=== PATIENT | female | born 1955 | race African-American/Black ===

== ENCOUNTER 2016-04-21 10:48 | Outpatient (RCR) | payer OTHER ==
--- OUTSIDE RECORDS SUMMARY | 2016-03-07 08:37 | XMS REPORT | Continuity of Care Document ---
Author Author [facility] Organization [facility] Address Unknown Phone Unavailable Care Team Providers Care Stunner Animal Name Role Phone Elvi Ortiz PCP [phone] Source Comments Some departments are not documenting in the electronic medical record. If you do not see the information that you expected, contact Release of Information in the Health Information Management department at [phone] for further assistance in locating additional records.[facility] Active Allergies and Adverse Reactions Allergen Noted Date Severity Reactions Comments Amitriptyline 01/23/2015 Low DIZZINESS Bactrim Ds 01/23/2015 Low UNKNOWN Ciprofloxacin 01/23/2015 Medium HIVES Erythromycin 01/23/2015 Low UNKNOWN Flagyl 01/23/2015 Low UNKNOWN Macrobid 01/23/2015 Medium RASH Current Medications Prescription Sig. Disp. Refills Start End Date Status Date chlorthalidone (HYGROTON) Take 25 mg by mouth Active 25 mg tablet daily. AMLODIPINE BESYLATE Take 5 mg by mouth daily. Active (BULK) MISC cyclobenzaprine Take 10 mg by mouth three Active (FLEXERIL) 10 mg tablet times daily as needed for Muscle Cramps. hydrOXYzine (ATARAX) 10 Take 10 mg by mouth four Active mg tablet times daily as needed for Itching. meclizine (ANTIVERT) 25 Take 25 mg by mouth as Active mg tablet Needed. DOCOSAHEXANOIC ACID/EPA Take 1,000 mg by mouth Active (FISH OIL PO) daily. pravastatin (PRAVACHOL) Take 40 mg by mouth Active 40 mg tablet daily. RABEprazole DR (+) Take 20 mg by mouth Active (ACIPHEX) 20 mg tablet daily. polyethylene glycol 3350 Take 17 g by mouth daily. Active (MIRALAX) 17 gram/dose powder ibuprofen (MOTRIN) 800 mg Take 800 mg by mouth Active tablet every 6 hours as needed for Pain. traMADol (ULTRAM) 50 mg Take 50 mg by mouth every Active tablet 6 hours as needed for Pain. gabapentin (NEURONTIN) Take 100 mg by mouth Active 100 mg capsule three times daily. Active Problems No known active problems Social History Tobacco Use Types Packs/Day Years Used Date Never Assessed Last Filed Vital Signs Vital Sign Reading Time Taken Blood Pressure 126/85 01/27/2015 9:53 AM CDT Pulse 83 01/27/2015 9:53 AM CDT Temperature 36.3 C (97.4 F) 01/27/2015 9:53 AM CDT Respiratory Rate 18 01/27/2015 9:53 AM CDT Height 1.575 m (5' 2") 01/27/2015 9:53 AM CDT Weight 77.111 kg (170 lb) 01/27/2015 9:53 AM CDT Body Mass Index 31.09 01/27/2015 9:53 AM CDT Oxygen Saturation 98% 01/27/2015 9:53 AM CDT Plan of Care Health Maintenance Due Date Last Done Comments Physical (Comprehensive) 1964 Exam Pertussis Vaccine 1968 Tetanus Vaccine 1974 Cervical Cancer Screening 1978 Breast Cancer Screening 1997 Colorectal Cancer 2007 Screening Influenza Vaccine 12/10/2015 Results from Last 3 Months Not on file
[~2016-04-21 10:48] MED LIST: ACET1TAB37; AMLO5TAB2 PO; AMLO5TAB5 PO; AMOX500C2 PO; CEPH500T PO; CETI10TA20 PO; CHLO25TA2 PO; CHLO500T2 PO; CPR500T PO; CYCL10TA9 PO; DIAZ-345 PO; FLAX SEED; Fish Oil; GENT5DRO3 OD; HYDR-1231 PO; HYDR-3816 PO; IBP800T PO; KETO10TA PO; LISI1TAB10 PO; MECL-133; MECL25TA56 PO; MELO15TA14; MONT10TA21 PO; OMG1KC PO; PRAV40TA PO; PRD20T PO; PROP1TAB77; SIMV40TA4 PO; SULF1TAB38 PO; TRM50T PO; [UNRECOGNIZED DRUG - CODE]
== END 2016-05-18 14:17 | disposition home or self-care (01) ==
DX: M75.82 Other shoulder lesions, left shoulder (principal)

== ENCOUNTER 2016-05-21 07:22 | Emergency (ER) | payer OTHER ==
[~2016-05-21] VITALS: Ht 162.6 cm; Wt 81.6 kg
--- OUTSIDE RECORDS SUMMARY | 2016-05-21 07:28 | XMS REPORT | Continuity of Care Document ---
Author Author [facility] Organization [facility] Address Unknown Phone Unavailable Care Team Providers Care Commercial Loan Processor Name Role Phone Elvi Ortiz PCP [phone] Source Comments Some departments are not documenting in the electronic medical record. If you do not see the information that you expected, contact Release of Information in the Health Information Management department at [phone] for further assistance in locating additional records.[facility] Active Allergies and Adverse Reactions Allergen [...]
[2016-05-21] MEDS ORDERED: FAMOTIDINE 20 MG (PEPCID) TABLET PO STA (07:35)
[2016-05-21] MEDS ORDERED: DEXAMETHASONE PF 10 MG/ML (DECADRON) VIAL IM STA (07:35)
--- NOTE | 2016-05-21 07:37 | ED General ---
General Chief Complaint: Allergic Reaction Stated Complaint: POSS ALLERGIC REACTION/FACIAL SWELLING Nursing Triage Note: STATES LAST NIGHT AROUND 2200 SHE NOTICED HER LIPS STARTING TO SWELL. SHE TOOK X2 BENADRYL AND WENT TO BED. THIS AM SHE NOTICED HER LIPS BEING EVEN MORE SWOLLEN AND TOOK X2 MORE BENADRYL THIS AM [place] 0630. DENIES ANY OTHER COMPLAINTS. PT IS ALLERGIC TO PEANUTS Nursing Sepsis Screen: No Definite Risk Source of Information: Patient Exam Limitations: No Limitations History of Present Illness Time Seen by Provider: 07:25 Initial Comments Here with report of swelling around her face. She noted that it started last night to her upper lip. She ate at [employer] and thinks that she may have had contact with peanuts and she is allergic to that. She did take 2 Benadryl last night and was able to go to sleep. She woke this morning with increasing swelling to her upper lip and took 2 more Benadryl at about 630 a.m. Denies breathing problems, throat swelling, stomach upset or hives. Does have history of allergic reaction that can sometimes be quite severe. She does have EpiPen available. Timing/Duration: 12 Hours Severity: Moderate Associated Systoms: No Chest Pain, No Fever/Chills, No Nausea/Vomiting, No Shortness of Air Allergies and Home Medications Allergies Coded Allergies: peanut (Verified Allergy, Severe, SOA, FACIAL SWELLING, 05/21/16) sulfamethoxazole (Unverified Adverse Reaction, Mild, 05/22/14) trimethoprim (Unverified Adverse Reaction, Mild, 05/22/14) Home Medications Amlodipine Besylate 5 Mg Tablet 5 MG PO DAILY (Reported) Cephalexin 500 Mg Tablet #20 500 MG PO QID Prescribed by: WILLA WARREN on 02/04/16 1233 Chlorthalidone 25 Mg Tablet 25 MG PO DAILY (Reported) Cyclobenzaprine Hcl 10 Mg Tablet 10 MG PO TID PRN PRN MUSCLE SPASMS (Reported) Hydrocodone Bit/Acetaminophen 1 Tab Tablet #14 1 TAB PO Q4H PRN PRN PAIN Prescribed by: SIDDHARTH COTTON on 10/09/14 1656 Hydrocodone/Acetaminophen 1 Each Tablet #8 1 EACH PO Q6H Prescribed by: WILLA WARREN on 02/04/16 1233 Ketorolac Tromethamine 10 Mg Tablet #20 10 MG PO Q6H Prescribed by: BUTCH DE JESUS MD on 10/03/15 1821 Meclizine Hcl 25 Mg Tablet 25 MG PO TID PRN PRN PRN DIZZINESS (Reported) [place] 3 Polyunsat Fatty Acids 1,000 Mg Cap 1,000 MG PO DAILY (Reported) Pravastatin Sodium 40 Mg Tablet 40 MG PO HS (Reported) Prednisone 20 Mg Tab #6 40 MG PO DAILY Prescribed by: WILLA WARREN on 02/04/16 1233 Constitutional: see HPINo chills, No fever EENTM: mouth swelling see HPINo throat swelling Respiratory: No cough, No short of breath, No wheezing Cardiovascular: No chest pain, No syncope Gastrointestinal: No abdominal pain, No nausea, No vomiting Genitourinary: no symptoms reported Musculoskeletal: no symptoms reported Skin: no symptoms reportedNo lesions, No rash Psychiatric/Neurological: No Symptoms Reported All Other Systems Reviewed Negative Unless Noted: Yes Past Ihwsnxk-Elmnca-Orrioa Hx Patient Social History Alcohol Use: Denies Use Recreational Drug Use: No Smoking Status: Unknown if Ever Smoked Recent Foreign Travel: No Contact w/Someone Who Travel: No Recent Infectious Disease Expo: No Recent Hopitalizations: No Immunizations Up To Date Tetanus Booster (TDap): Less than 5yrs Seasonal Allergies Seasonal Allergies: No Surgeries HX Surgeries: Yes (CARPAL TUNNEL) Surgeries: Adenoidectomy, Tubal Ligation Respiratory Hx Respiratory Disorders: No Cardiovascular Hx Cardiac Disorders: Yes Cardiac Disorders: High Cholesterol, Hypertension Neurological Hx Neurological Disorders: No Reproductive System Hx Reproductive Disorders: No Genitourinary Hx Genitourinary Disorders: No Gastrointestinal Hx Gastrointestinal Disorders: No Musculoskeletal Hx Musculoskeletal Disorders: Yes Musculoskeletal Disorders: Chronic Back Pain Endocrine Hx Endocrine Disorders: No HEENT HX ENT Disorders: No Cancer Hx Cancer: No Psychosocial Hx Psychiatric Problems: No Integumentary HX Skin/Integumentary Disorder: No Blood Transfusions Hx Blood Disorders: No Reviewed Nursing Assessment Reviewed/Agree w Nursing PMH: Yes Family Medical History Significant Family History: No Pertinent Family Hx Physical Exam Vital Signs Vital Sign - Last 12Hours 05/21/16 07:27 Temp 96.4 Pulse 91 Resp 18 B/P 148/87 Pulse Ox 98 Capillary Refill : Less Than 3 Seconds General Appearance: No Apparent Distress WD/WN HEENT: PERRL/EOMI Pharynx Normal Other (swelling of the upper lip noted.) Neck: Non Tender Supple Respiratory: Lungs Clear Normal Breath Sounds Cardiovascular: Regular Rate, Rhythm No Murmur Gastrointestinal: Non Tender Soft Back: Normal Inspection No CVA Tenderness No Vertebral Tenderness Extremity: Non Tender No Calf Tenderness Neurologic/Psychiatric: Alert Oriented x3 Skin: Normal Color Warm/Dry Progress/Results/Core Measures Results/Orders My Orders Orders-WILLA WARREN MD Dexamethasone Pf Injection (Decadron Pf (05/21/16 07:35) Famotidine Tablet (Pepcid Tablet) (05/21/16 07:35) Vital Signs/I&O Vital Sign - Last 12Hours 05/21/16 07:27 Temp 96.4 Pulse 91 Resp 18 B/P 148/87 Pulse Ox 98 Blood Pressure Mean: 107 Progress Note : Progress Note Seen and evaluated. Decadron 10 mg IM. Pepcid 20 mg by mouth. We did discuss treatment of allergic reactions. Discharged home with return precautions. Patient verbalize understanding instructions and agreement with plan. Departure Impression Impression: Primary Impression: Allergic reaction to food Qualified Code: T78.1XXA - Other adverse food reactions, not elsewhere classified, initial encounter Disposition: 01 HOME, SELF-CARE Condition: Improved Departure-Patient Inst. Decision time for Depature: 07:51 Referrals: [facility] (PCP/Family) Primary Care Physician Patient Instructions: Food Allergy Add. Discharge Instructions: All discharge instructions reviewed with patient and/or family. Voiced understanding. You may take Benadryl 25 or 50 mg every 6 hours as needed for swelling or itching. You may take Pepcid or the generic famotidine 20 mg twice daily for the next 3-4 days and then as needed. If you have allergic reaction you may take 2 Benadryl and 1 Pepcid at onset of symptoms in the future. Take other medications as prescribed. Return for worse pain, swelling of the throat or tongue, breathing problems, stomach upset or pain, hives or rash or other concerns as needed. Follow-up with your in a few days for recheck. Work/School Note: Work Release Form Date Seen in the Emergency Department: May 21, 2016 Return to Work: May 22, 2016 Restrictions: No Restrictions WILLA WARREN MD May 21, 2016 07:37
[2016-05-21 08:13] VITALS: BP 127/89
== END 2016-05-21 08:13 | disposition home or self-care (01) ==
LOC: EDUNIT# 07:22 → ER 07:24
DX: T78.1XXA Other adverse food reactions, not elsewhere classified, initial encounter (principal); I10 Essential (primary) hypertension; Z79.899 Other long term (current) drug therapy; Z91.02 Food additives allergy status
CPT/HCPCS: 96372; 99282

== ENCOUNTER 2016-06-06 10:23 | Emergency (ER) | payer OTHER ==
[~2016-06-06] VITALS: Ht 162.6 cm; Wt 81.6 kg
--- OUTSIDE RECORDS SUMMARY | 2016-06-06 10:30 | XMS REPORT | Continuity of Care Document ---
Author Author [facility] Organization [facility] Address Unknown Phone Unavailable Care Team Providers Care Title I Coordinator Name Role Phone Elvi Ortiz PCP [phone] Source Comments Some departments are not documenting in the electronic medical record. If you do not see the information that you expected, contact Release of Information in the Health Information Management department at [phone] for further assistance in locating additional records.[facility] Active Allergies and Adverse Reactions Allergen [...]
--- NOTE | 2016-06-06 10:52 | ED General ---
General Chief Complaint: Allergic Reaction Stated Complaint: ALLERGIC REACTION/LIP SWOLLEN Source of Information: Patient Exam Limitations: No Limitations History of Present Illness Time Seen by Provider: 10:49 Initial Comments To ER with right lower lip swelling since 10 p.m. last night. She went to bed at 9 p.m. feeling fine and awakened at 10 p.m. with a swollen right lip. She denies any exposure to known allergens. She has a history of facial and lip swelling and was formerly on lisinopril but her physician stopped this years ago. Timing/Duration: 1-2 Days Severity: Moderate Allergies and Home Medications Allergies Coded Allergies: peanut (Verified Allergy, Severe, SOA, FACIAL SWELLING, 05/21/16) sulfamethoxazole (Unverified Adverse Reaction, Mild, 05/22/14) trimethoprim (Unverified Adverse Reaction, Mild, 05/22/14) Home Medications Amlodipine Besylate 5 Mg Tablet 5 MG PO DAILY (Reported) Cephalexin 500 Mg Tablet #20 500 MG PO QID Prescribed by: WILLA WARREN on 02/04/16 1233 Chlorthalidone 25 Mg Tablet 25 MG PO DAILY (Reported) Cyclobenzaprine Hcl 10 Mg Tablet 10 MG PO TID PRN PRN MUSCLE SPASMS (Reported) Hydrocodone Bit/Acetaminophen 1 Tab Tablet #14 1 TAB PO Q4H PRN PRN PAIN Prescribed by: SIDDHARTH COTTON on 10/09/14 1656 Hydrocodone/Acetaminophen 1 Each Tablet #8 1 EACH PO Q6H Prescribed by: WILLA WARREN on 02/04/16 1233 Ketorolac Tromethamine 10 Mg Tablet #20 10 MG PO Q6H Prescribed by: BUTCH DE JESUS MD on 10/03/15 1821 Meclizine Hcl 25 Mg Tablet 25 MG PO TID PRN PRN PRN DIZZINESS (Reported) [place] 3 Polyunsat Fatty Acids 1,000 Mg Cap 1,000 MG PO DAILY (Reported) Pravastatin Sodium 40 Mg Tablet 40 MG PO HS (Reported) Prednisone 20 Mg Tab #6 40 MG PO DAILY Prescribed by: WILLA WARREN on 02/04/16 1233 Constitutional: see HPI EENTM: other (lip swelling but no trouble swallowing or tongue swelling) see HPI Respiratory: no symptoms reportedNo short of breath, No stridor, No wheezing Cardiovascular: no symptoms reported Genitourinary: no symptoms reported Musculoskeletal: see HPI Skin: see HPINo pruritus, No rash Psychiatric/Neurological: No Symptoms Reported Hematologic/Lymphatic: No Symptoms Reported Past Iqbrkrq-Dxgzro-Tellme Hx Patient Social History Alcohol Use: Denies Use Recreational Drug Use: No Smoking Status: Never a Smoker Recent Foreign Travel: No Contact w/Someone Who Travel: No Recent Hopitalizations: No Immunizations Up To Date Tetanus Booster (TDap): Less than 5yrs Seasonal Allergies Seasonal Allergies: No Surgeries HX Surgeries: Yes (CARPAL TUNNEL) Surgeries: Adenoidectomy, Tubal Ligation Respiratory Hx Respiratory Disorders: No Cardiovascular Hx Cardiac Disorders: Yes Cardiac Disorders: High Cholesterol, Hypertension Neurological Hx Neurological Disorders: No Reproductive System Hx Reproductive Disorders: No Genitourinary Hx Genitourinary Disorders: No Gastrointestinal Hx Gastrointestinal Disorders: No Musculoskeletal Hx Musculoskeletal Disorders: Yes Musculoskeletal Disorders: Chronic Back Pain Endocrine Hx Endocrine Disorders: No HEENT HX ENT Disorders: No Cancer Hx Cancer: No Psychosocial Hx Psychiatric Problems: No Integumentary HX Skin/Integumentary Disorder: No Blood Transfusions Hx Blood Disorders: No Family Medical History Significant Family History: No Pertinent Family Hx Physical Exam Vital Signs Vital Sign - Last 12Hours 06/06/16 10:48 Temp 97.0 Pulse 84 Resp 18 B/P 123/84 Pulse Ox 98 Capillary Refill : General Appearance: No Apparent Distress WD/WN Eyes: Bilateral Eye EOMI, Bilateral Eye Normal Inspection, Bilateral Eye PERRL HEENT: PERRL/EOMI TMs Normal Other (there is swelling to the right side of the lower lip. There is no swelling involving the tongue, uvula or airway. There is no wheezing or stridor.) Neck: Full Range of Motion Normal Inspection Respiratory: Normal Breath Sounds No Accessory Muscle Use No Respiratory Distress Cardiovascular: Regular Rate, Rhythm Normal Peripheral Pulses Gastrointestinal: Normal Bowel Sounds Non Tender Soft Extremity: Normal Capillary Refill Normal Inspection Neurologic/Psychiatric: Alert Oriented x3 No Motor/Sensory Deficits Skin: Normal Color Warm/DryNo Rash Progress/Results/Core Measures Results/Orders My Orders Orders-BRITT ZIEGLER APRN Dexamethasone Pf Injection (Decadron Pf (06/06/16 11:00) Diphenhydramine Injection (Benadryl Inje (06/06/16 11:00) Complement C4 Serum (06/06/16 10:52) C1 Esterase Inhibitor Qnt (06/06/16 10:52) C1 Esterase Inhibitor Function (06/06/16 10:52) Vital Signs/I&O Vital Sign - Last 12Hours 06/06/16 10:48 Temp 97.0 Pulse 84 Resp 18 B/P 123/84 Pulse Ox 98 Departure Impression Impression: Primary Impression: Angioedema of lips Disposition: HOME, SELF-CARE Condition: Stable Departure-Patient Inst. Decision time for Depature: 10:51 Referrals: [facility] (PCP/Family) Primary Care Physician Patient Instructions: Angioedema Add. Discharge Instructions: 1. This angioedema may be allergic or hereditary 2. Follow-up with your doctor to help differentiate this. All discharge instructions reviewed with patient and/or family. Voiced understanding. Copy Copies To 1: ROSANNA NELSON PETER J APRN Jun 06, 2016 10:52
[2016-06-06] MEDS ORDERED: diphenhydrAMINE 50 MG/ML INJ (BENADRYL) IM ONE (11:00)
[2016-06-06] MEDS ORDERED: DEXAMETHASONE PF 10 MG/ML (DECADRON) VIAL IM ONE (11:00)
[2016-06-06 11:12] VITALS: BP 123/84
[2016-06-07 08:03] LABS: C4 COMPLEMENT SERUM 51 mg/dL (15-59)
[2016-06-09 07:33] LABS: C1 ESTERASE INHIBITOR C 111 mg/dL (31-67)
== END 2016-06-06 11:12 | disposition home or self-care (01) ==
LOC: EDUNIT# 10:23 → ER 10:25
DX: T78.3XXA Angioneurotic edema, initial encounter (principal); I10 Essential (primary) hypertension; Z79.899 Other long term (current) drug therapy
CPT/HCPCS: 36415; 86160; 86329; 88271; 96372; 99282

== ENCOUNTER 2016-06-18 11:08 | Emergency (ER) | payer OTHER ==
[~2016-06-18] VITALS: Ht 157.5 cm; Wt 79.4 kg
--- OUTSIDE RECORDS SUMMARY | 2016-06-18 11:14 | XMS REPORT | Continuity of Care Document ---
Author Author [facility] Organization [facility] Address Unknown Phone Unavailable Care Team Providers Care Fruit Loader Machine Operator Name Role Phone Elvi Ortiz PCP [phone] Source Comments Some departments are not documenting in the electronic medical record. If you do not see the information that you expected, contact Release of Information in the Health Information Management department at [phone] for further assistance in locating additional records.[facility] Active Allergies and Adverse Reactions Allergen Noted [...]
--- NOTE | 2016-06-18 11:21 | ED Abdominal Pain ---
General Stated Complaint: R SIDE BACK AND SIDE PAIN Source of Information: Patient Exam Limitations: No Limitations History of Present Illness Time Seen By Provider: 11:20 Initial Comments To ER with 3 weeks of constant right low back pain that radiates around to the right lower abdomen. She has frequent urination. No fevers chills. No nausea or vomiting. No diarrhea or constipation. Timing/Duration: 1-2 Days Severity/Quality: Moderate Location: RLQ, Flank Radiation: RLQ Activities at Onset: None Associated Symptoms: No Fever/Chills, No Nausea/Vomiting Allergies and Home Medications Allergies Coded Allergies: peanut (Verified Allergy, Severe, SOA, FACIAL SWELLING, 05/21/16) sulfamethoxazole (Unverified Adverse Reaction, Mild, 05/22/14) trimethoprim (Unverified Adverse Reaction, Mild, 05/22/14) Home Medications Amlodipine Besylate 5 Mg Tablet 5 MG PO DAILY (Reported) Cephalexin 500 Mg Tablet #20 500 MG PO QID Prescribed by: WILLA WARREN on 02/04/16 1233 Chlorthalidone 25 Mg Tablet 25 MG PO DAILY (Reported) Cyclobenzaprine Hcl 10 Mg Tablet 10 MG PO TID PRN PRN MUSCLE SPASMS (Reported) Hydrocodone Bit/Acetaminophen 1 Tab Tablet #14 1 TAB PO Q4H PRN PRN PAIN Prescribed by: SIDDHARTH COTTON on 10/09/14 1656 Hydrocodone/Acetaminophen 1 Each Tablet #8 1 EACH PO Q6H Prescribed by: WILLA WARREN on 02/04/16 1233 Hydrocodone/Acetaminophen 1 Each Tablet #10 1 EACH PO Q6H PRN PRN SEVERE PAIN Prescribed by: BRITT ZIEGLER on 06/18/16 1308 Ibuprofen 800 Mg Tablet #30 800 MG PO Q8H PRN PRN PAIN Prescribed by: BRITT ZIEGLER on 06/18/16 1308 Ketorolac Tromethamine 10 Mg Tablet #20 10 MG PO Q6H Prescribed by: BUTCH DE JESUS MD on 10/03/15 1821 Meclizine Hcl 25 Mg Tablet 25 MG PO TID PRN PRN PRN DIZZINESS (Reported) [place] 3 Polyunsat Fatty Acids 1,000 Mg Cap 1,000 MG PO DAILY (Reported) Pravastatin Sodium 40 Mg Tablet 40 MG PO HS (Reported) Prednisone 20 Mg Tab #6 40 MG PO DAILY Prescribed by: WILLA WARREN on 02/04/16 1233 Review of Systems Constitutional: see HPI EENTM: No Symptoms Reported Respiratory: No Symptoms Reported Cardiovascular: No Symptoms Reported Gastrointestinal: See HPI Abdominal PainDenies Constipated, Denies Diarrhea, Denies Nausea Genitourinary: See HPI Frequency Flank Pain Musculoskeletal: no symptoms reported Skin: no symptoms reported Psychiatric/Neurological: No Symptoms Reported Endocrine: No Symptoms Reported Hematologic/Lymphatic: No Symptoms Reported Past Lydhfrb-Vrtssf-Gtmjio Hx Patient Social History Recent Foreign Travel: No Contact w/Someone Who Travel: No Recent Hopitalizations: No Immunizations Up To Date Tetanus Booster (TDap): Less than 5yrs Seasonal Allergies Seasonal Allergies: No Surgeries HX Surgeries: Yes (CARPAL TUNNEL) Surgeries: Adenoidectomy, Tubal Ligation Respiratory Hx Respiratory Disorders: No Cardiovascular Hx Cardiac Disorders: Yes Cardiac Disorders: High Cholesterol, Hypertension Neurological Hx Neurological Disorders: No Reproductive System Hx Reproductive Disorders: No Genitourinary Hx Genitourinary Disorders: No Gastrointestinal Hx Gastrointestinal Disorders: No Musculoskeletal Hx Musculoskeletal Disorders: Yes Musculoskeletal Disorders: Chronic Back Pain Endocrine Hx Endocrine Disorders: No HEENT HX ENT Disorders: No Cancer Hx Cancer: No Psychosocial Hx Psychiatric Problems: No Integumentary HX Skin/Integumentary Disorder: No Blood Transfusions Hx Blood Disorders: No Family Medical History Significant Family History: No Pertinent Family Hx Physical Exam Vital Signs VS - Last 72 Hours, by Label 06/18/16 11:20 Temp 97.5 Pulse 80 Resp 16 B/P 130/90 Pulse Ox 98 Capillary Refill : General Appearance: WD/WN no apparent distress HEENT: PERRL/EOMI normal ENT inspection Neck: non-tender full range of motion Respiratory: no respiratory distress no accessory muscle use Cardiovascular: regular rate, rhythm no murmur Gastrointestinal: normal bowel sounds soft tenderness Neurologic/Psychiatric: alert normal mood/affect oriented x 3 Skin: normal color warm/dry Progress/Results/Core Measures Results/Orders Lab Results Laboratory Tests Test 06/18/16 11:21 06/18/16 11:28 Range/Units Alanine Aminotransferase (ALT/SGPT) 17 0-55 U/L Albumin 4.7 H 3.2-4.5 G/DL Alkaline Phosphatase 110 40-136 U/L Anion Gap 12 5-14 MMOL/L Aspartate Amino Transf (AST/SGOT) 18 5-34 U/L BUN/Creatinine Ratio 12 Basophils # (Auto) 0.0 0.0-0.1 10^3/uL Basophils (%) (Auto) 0 0-10 % Blood Urea Nitrogen 9 7-18 MG/DL Calcium Level 10.3 H 8.5-10.1 MG/DL Carbon Dioxide Level 25 21-32 MMOL/L Chloride Level 103 98-107 MMOL/L Creatinine 0.77 0.60-1.30 MG/DL Eosinophils # (Auto) 0.1 0.0-0.3 10^3/uL Eosinophils (%) (Auto) 2 0-10 % Estimat Glomerular Filtration Rate > 60 Glucose Level 113 H 70-105 MG/DL Hematocrit 43 35-52 % Hemoglobin 14.3 11.5-16.0 G/DL Lymphocytes # (Auto) 1.3 1.0-4.0 X 10^3 Lymphocytes (%) (Auto) 27 12-44 % Mean Corpuscular Hemoglobin 28 25-34 PG Mean Corpuscular Hemoglobin Concent 33 32-36 G/DL Mean Corpuscular Volume 84 80-99 FL Mean Platelet Volume 10.6 H 7.4-10.4 FL Monocytes # (Auto) 0.4 0.0-1.0 X 10^3 Monocytes (%) (Auto) 8 0-12 % Neutrophils # (Auto) 3.0 1.8-7.8 X 10^3 Neutrophils (%) (Auto) 63 42-75 % Platelet Count 300 130-400 10^3/uL Potassium Level 3.8 3.6-5.0 MMOL/L Red Blood Count 5.13 4.35-5.85 10^6/uL Red Cell Distribution Width 14.0 10.0-14.5 % Sodium Level 140 135-145 MMOL/L Total Bilirubin 0.4 0.1-1.0 MG/DL Total Protein 7.9 6.4-8.2 G/DL White Blood Count 4.7 4.3-11.0 10^3/uL Urine Bacteria NEGATIVE /HPF Urine Bilirubin NEGATIVE NEGATIVE Urine Casts NONE /LPF Urine Clarity CLEAR Urine Color YELLOW Urine Crystals NONE /LPF Urine Culture Indicated NO Urine Glucose (UA) NEGATIVE NEGATIVE Urine Ketones NEGATIVE NEGATIVE Urine Leukocyte Esterase 1+ H NEGATIVE Urine Mucus NEGATIVE /LPF Urine Nitrite NEGATIVE NEGATIVE Urine Protein NEGATIVE NEGATIVE Urine RBC NONE /HPF Urine RBC (Auto) NEGATIVE NEGATIVE Urine Specific [place] 1.010 L 1.016-1.022 Urine Squamous Epithelial Cells RARE /HPF Urine Urobilinogen NORMAL NORMAL MG/DL Urine WBC RARE /HPF Urine pH 7 5-9 My Orders Orders-BRITT ZIEGLER APRN Cbc With Automated Diff (06/18/16 11:17) Comprehensive Metabolic Panel (06/18/16 11:17) Ua Culture If Indicated (06/18/16 11:17) Saline Lock/Iv-Start (06/18/16 11:17) Ct Abd/Pelvis Wo(Kidney Stone) (06/18/16 11:17) Ketorolac Injection (Toradol Injection) (06/18/16 11:30) Fentanyl Injection (Sublimaze Injection (06/18/16 12:00) Us Non Ob Pelvis Comp/Transvag (06/18/16 12:16) Medications Given in ED Current Medications Medications Dose Ordered Sig/Deangelo Route Start Time Stop Time Status Last Admin Dose Admin Fentanyl Citrate 50 mcg ONCE ONCE IVP 06/18/16 12:00 06/18/16 12:01 DC 06/18/16 11:56 50 MCG Ketorolac Tromethamine 30 mg ONCE ONCE IVP 06/18/16 11:30 06/18/16 11:31 DC 06/18/16 11:34 30 MG Vital Signs/I&O Vital Sign - Last 12Hours 06/18/16 11:20 Temp 97.5 Pulse 80 Resp 16 B/P 130/90 Pulse Ox 98 Diagnostic Imaging Diagonstic Imaging: Ultrasound Comments NAME: [facility]EM [facility]UART [facility] REC#: [id number] PT STATUS: REG ER : 1955 PHYSICIAN: BRITT ZIEGLER APRN ADMIT DATE: 06/18/16/ER Draft Date of Exam:06/18/16 US NON OB PELVIS COMP/TRANSVAG INDICATION: Pelvic fullness with calcification on CT imaging obtained for urinary tract infection. TECHNIQUE: Multiple real time bernstein scale sonographic images were obtained of the pelvis transabdominally and endovaginally. CORRELATION STUDY: None FINDINGS: UTERUS/ENDOMETRIUM: Uterus measures uterus is slightly deviated towards the right. Along the posterior lower aspect of the uterus is what appears to be an approximately 2.2 x 2.2 cm mass with central calcification most compatible with posterior lower uterine fibroid. cm. The uterus has an unremarkable appearance. The endometrium is thickened in a postmenopausal patient measuring 8mm. RIGHT OVARY: Not visualized. LEFT OVARY: Not visualized. Ovaries unable to be visualized may be owing to position, overlying bowel gas or atrophic. No significant free pelvic fluid. IMPRESSION: 1. Probable fibroid uterus with a dense central calcification. 2. Endometrium is abnormally thickened in a postmenopausal patient raising concern for endometrial hyperplasia versus carcinoma. Followup evaluation is recommended. Dictated on workstation # [id number] Dict: 06/18/16 1314 Trans: 06/18/16 1318 MURTAZA [id number] Interpreted by: RAJENDRA PATTERSON DO Electronically signed by: Departure Communication Progress Notes 1323-I discussed the case with Dr. Garcia. She would be happy to see the patient in follow-up Impression Impression: Primary Impression: Uterine fibroid Qualified Code: D25.9 - Leiomyoma of uterus, unspecified Disposition: HOME, SELF-CARE Condition: Stable Departure-Patient Inst. Decision time for Depature: 13:06 Referrals: [facility] (PCP/Family) Primary Care Physician CATRINA POWERS DENNIS G MD MCNULTY,USHA QUESADA MD DO Patient Instructions: UTERINE FIBROIDS Add. Discharge Instructions: 1. Call one of the bench repair technician on Monday to schedule an appointment for follow-up and further evaluation of uterine fibroid. I did discuss your case with Dr. Garcia and she would be happy to see you in follow-up if you call her office on Monday morning to schedule an appointment 2. Return to ER for any worsening pain or other concerns such as fevers Scripts Hydrocodone/Acetaminophen ([place] 5-325 Tablet)1 Each Tablet1 Each PO Q6H PRN SEVERE PAIN #10 TAB Prov:BRITT ZIEGLER CLOTH WASHER OPERATOR 06/18/16 Ibuprofen 800 Mg [id number] Mg PO Q8H PRN PAIN #30 TAB Prov:BRITT ZIEGLER CLOTH WASHER OPERATOR 06/18/16 BRITT ZIEGLER CLOTH WASHER OPERATOR Jun 18, 2016 11:21
[2016-06-18] MEDS ORDERED: KETOROLAC 30 MG/ML VIAL IVP ONE (11:30)
[2016-06-18 11:35] LABS: BILIRUBIN,URINE NEGATIVE (NEGATIVE); KETONES,URINE NEGATIVE (NEGATIVE); LEUKOCYTE ESTERASE ,URINE 1+ (NEGATIVE); NITRITE,URINE NEGATIVE (NEGATIVE); PH,URINE 7 (5-9); PROTEIN,URINE NEGATIVE (NEGATIVE); UROBILINOGEN,URINE NORMAL (NORMAL)
[2016-06-18 11:37] LABS: BASOPHILS % (AUTO) 0 % (0-10); EOSINOPHILS # (AUTO) 0.1 10^3/uL (0.0-0.3); EOSINOPHILS % (AUTO) 2 % (0-10); LYMPHOCYTES # (AUTO) 1.3 X 10^3 (1.0-4.0); LYMPHOCYTES % (AUTO) 27 % (12-44); MEAN CORPUSCULAR HEMOGLOBIN 28 PG (25-34); MEAN CORPUSCULAR HGB CONC 33 G/DL (32-36); MEAN CORPUSCULAR VOLUME 84 FL (80-99); MEAN PLATELET VOLUME 10.6 FL (7.4-10.4); MONOCYTES # (AUTO) 0.4 X 10^3 (0.0-1.0); MONOCYTES % (AUTO) 8 % (0-12); NEUTROPHILS % (AUTO) 63 % (42-75); PLATELET COUNT 300 10^3/uL (130-400); RED BLOOD COUNT 5.13 10^6/uL (4.35-5.85); WHITE BLOOD COUNT 4.7 10^3/uL (4.3-11.0)
[2016-06-18 11:52] LABS: SQUAMOUS EPITHELIAL CELL,UR RARE /HPF; WBC,URINE RARE /HPF
[2016-06-18] MEDS ORDERED: fentaNYL INJECTION 100 MCG/2 ML AMP IVP ONE (12:00)
--- NOTE | 2016-06-18 12:06 | Diagnostic Imaging Report ---
PROCEDURE: CT urinary tract, rule out kidney stone. TECHNIQUE: Multiple contiguous axial images were obtained through the abdomen and pelvis without the use of intravenous contrast. INDICATION: Right back pain. COMPARISON: None FINDINGS: The lung bases are clear. The liver, gallbladder, pancreas, spleen and adrenal glands appear unremarkable. The kidneys, ureters and bladder appear unremarkable. No urinary tract calcifications or obstructive uropathy is seen. The appendix appears normal. There is no evidence of significant inflammatory process or bowel obstruction. There is some prominence of the right adnexa and there is an 11 mm coarse calcification in the region of right adnexa which may represent an ovarian lesion or possibly dermoid and is nonspecific. An exophytic degenerated uterine fibroid is considered less likely but certainly possible. Pelvic ultrasound may be of additional benefit. No significant free fluid or adenopathy is seen. Abdominal aorta appears normal in caliber. No acute osseous abnormality is seen. IMPRESSION: 1. No evidence of urinary tract calcification, obstructive uropathy or other acute abnormality. 2. The appendix appears normal. 3. There is prominence of the right adnexa with a central coarse calcification. This is nonspecific and could be a degenerating uterine fibroid which is exophytic or possibly a right ovarian lesion such as dermoid. Pelvic ultrasound may be of additional benefit for further evaluation. 4. No additional abnormality is demonstrated. Dictated by: Dictated on workstation # [id number]
[2016-06-18 12:21] LABS: ALANINE AMINOTRANSFERASE 17 U/L (0-55); ALBUMIN 4.7 G/DL (3.2-4.5); ANION GAP 12 MMOL/L (5-14); ASPARTATE AMINO TRANSFERASE 18 U/L (5-34); BILIRUBIN,TOTAL 0.4 MG/DL (0.1-1.0); BLOOD UREA NITROGEN 9 MG/DL (7-18); BUN/CREATININE RATIO 12; CALCIUM 10.3 MG/DL (8.5-10.1); CARBON DIOXIDE 25 MMOL/L (21-32); CHLORIDE 103 MMOL/L (98-107); CREATININE SERUM 0.77 MG/DL (0.60-1.30); GFR ESTIMATED > 60; GLUCOSE 113 MG/DL (70-105); POTASSIUM 3.8 MMOL/L (3.6-5.0); SODIUM 140 MMOL/L (135-145); TOTAL PROTEIN 7.9 G/DL (6.4-8.2)
[2016-06-18] MEDS ORDERED: IBUP-1780 PO (13:08)
[2016-06-18] MEDS ORDERED: HYDR-757 PO (13:08)
--- NOTE | 2016-06-18 13:19 | Diagnostic Imaging Report ---
INDICATION: Pelvic fullness with calcification on CT imaging obtained for urinary tract infection. TECHNIQUE: Multiple real time bernstein scale sonographic images were obtained of the pelvis transabdominally and endovaginally. CORRELATION STUDY: None FINDINGS: UTERUS/ENDOMETRIUM: Uterus measures uterus is slightly deviated towards the right. Along the posterior lower aspect of the uterus is what appears to be an approximately 2.2 x 2.2 cm mass with central calcification most compatible with posterior lower uterine fibroid. cm. The uterus has an unremarkable appearance. The endometrium is thickened in a postmenopausal patient measuring 8mm. RIGHT OVARY: Not visualized. LEFT OVARY: Not visualized. Ovaries unable to be visualized may be owing to position, overlying bowel gas or atrophic. No significant free pelvic fluid. IMPRESSION: 1. Probable fibroid uterus with a dense central calcification. 2. Endometrium is abnormally thickened in a postmenopausal patient raising concern for endometrial hyperplasia versus carcinoma. Followup evaluation is recommended. Dictated by: Dictated on workstation # [id number]
[2016-06-18 13:32] VITALS: BP 130/90
== END 2016-06-18 13:33 | disposition home or self-care (01) ==
LOC: EDUNIT# 11:08 → ER 11:09
DX: D25.9 Leiomyoma of uterus, unspecified (principal); R93.8 Abnormal findings on diagnostic imaging of other specified body structures; R35.0 Frequency of micturition; I10 Essential (primary) hypertension; Z79.899 Other long term (current) drug therapy
CPT/HCPCS: 36415; 74176; 76830; 76856; 80053; 81000; 85025; 96374; 96375

== ENCOUNTER 2016-06-24 22:33 | Emergency (ER) | payer OTHER ==
[~2016-06-24] VITALS: Ht 157.5 cm; Wt 80.7 kg
[~2016-06-24 22:33] MED LIST changes: +HYDR-757 PO; +IBUP-1780 PO
--- OUTSIDE RECORDS SUMMARY | 2016-06-24 22:39 | XMS REPORT | Continuity of Care Document ---
Author Author [facility] Organization [facility] Address Unknown Phone Unavailable Care Team Providers Care Costumed Character Entertainer Name Role Phone Elvi Ortiz PCP [phone] Source Comments Some departments are not documenting in the electronic medical record. If you do not see the information that you expected, contact Release of Information in the Health Information Management department at [phone] for further assistance in locating additional records.[facility] Active Allergies and Adverse Reactions [...]
[2016-06-24] MEDS ORDERED: FAMOTIDINE 20 MG (PEPCID) TABLET PO ONE (23:15)
[2016-06-24] MEDS ORDERED: methylPREDNISolone 125 MG (Solu-MEDROL) VIAL IM ONE (23:15)
[2016-06-24] MEDS ORDERED: diphenhydrAMINE 50 MG/ML INJ (BENADRYL) IM ONE (23:15)
--- NOTE | 2016-06-24 23:52 | ED Integumentary General ---
General Chief Complaint: Allergic Reaction Stated Complaint: HIVES Nursing Triage Note: PT TO ED 6 W/ C/O SMALL AREA OF ITCHING TO CHAD ONSET TONIGHT AFTER TAKING BACLOFEN. PT REPORTS BEGAN TAKING MED MONDAY OF THIS WEEK FOR UTERINE FIBROID PAIN. DENIES C/O SOA OR TONGUE SWELLING AT THIS TIME. Source: patient History of Present Illness Time seen by provider: 22:56 Initial Comments PT STATES SHE BEGAN TO DEVELOP ITCHING AND HIVES TO LEFT UPPER ABDOMEN TONIGHT AROUND 2230 STATES NOW SHE IS STARTING TO HAVE ITCHING TO LEFT POSTERIOR ILIAC AREA AND BILATERAL LOWER BUTTOCKS AREA STATES SHE HAS PELVIC PAIN FROM UTERINE FIBROID AND HAS BEEN TAKING HYDROCODONE AND IBUPROFEN WITHOUT RELIEF--SEEN IN ER 06/18/16 FOR THIS AND WAS PRESCRIBED THESE MEDICATIONS--, SO RX FOR BACLOFEN WAS CALLED IN ON Monday TONIGHT WAS 3RD TIME SHE HAS TAKEN IT, AND TOOK IT AT 2130 TONIGHT--HIVES BEGAN AN HOUR LATER NO SWELLING ANYWHERE NO DIFFICULTY BREATHING OR WHEEZING STATES SHE DOES HAVE SENSATION OF SOMETHING IN HER THROAT PT HAS HISTORY OF MULTIPLE EPISODES OF ANGIOEDEMA--UNDETERMINED CAUSE, PT IS NOT ON JUDY INHIBITORS. PT DOES HAVE SOME FOOD ALLERGIES. PT DENIES ANY NEW FOODS TONIGHT PCP:[facility] Allergies and Home Medications Allergies Coded Allergies: peanut (Verified Allergy, Severe, SOA, FACIAL SWELLING, 05/21/16) sulfamethoxazole (Unverified Adverse Reaction, Mild, 05/22/14) trimethoprim (Unverified Adverse Reaction, Mild, 05/22/14) Home Medications Amlodipine Besylate 5 Mg Tablet 5 MG PO DAILY (Reported) Cephalexin 500 Mg Tablet #20 500 MG PO QID Prescribed by: WILLA WARREN on 02/04/16 1233 Chlorthalidone 25 Mg Tablet 25 MG PO DAILY (Reported) Cyclobenzaprine Hcl 10 Mg Tablet 10 MG PO TID PRN PRN MUSCLE SPASMS (Reported) Hydrocodone Bit/Acetaminophen 1 Tab Tablet #14 1 TAB PO Q4H PRN PRN PAIN Prescribed by: SIDDHARTH COTTON on 10/09/14 1656 Hydrocodone/Acetaminophen 1 Each Tablet #8 1 EACH PO Q6H Prescribed by: WILLA WARREN on 02/04/16 1233 Hydrocodone/Acetaminophen 1 Each Tablet #10 1 EACH PO Q6H PRN PRN SEVERE PAIN Prescribed by: BRITT ZIEGLER on 06/18/16 1308 Ibuprofen 800 Mg Tablet #30 800 MG PO Q8H PRN PRN PAIN Prescribed by: BRITT ZIEGLER on 06/18/16 1308 Ketorolac Tromethamine 10 Mg Tablet #20 10 MG PO Q6H Prescribed by: BUTCH DE JESUS MD on 10/03/15 1821 Meclizine Hcl 25 Mg Tablet 25 MG PO TID PRN PRN PRN DIZZINESS (Reported) [place] 3 Polyunsat Fatty Acids 1,000 Mg Cap 1,000 MG PO DAILY (Reported) Pravastatin Sodium 40 Mg Tablet 40 MG PO HS (Reported) Prednisone 20 Mg Tab #6 40 MG PO DAILY Prescribed by: WILLA WARREN on 02/04/16 1233 Constitutional: no symptoms reported EENTM: see HPINo hoarseness, No mouth swelling Respiratory: no symptoms reportedNo cough, No short of breath, No wheezing Cardiovascular: no symptoms reported Gastrointestinal: no symptoms reported Genitourinary: no symptoms reported Musculoskeletal: no symptoms reported Skin: see HPI Psychiatric/Neurological: No Symptoms Reported Endocrine: No Symptoms Reported Hematologic/Lymphatic: No Symptoms Reported Past Mkbwvsf-Spapex-Focddn Hx Patient Social History Alcohol Use: Denies Use Recreational Drug Use: No Smoking Status: Never a Smoker 2nd Hand Smoke Exposure: No Recent Foreign Travel: No Contact w/Someone Who Travel: No Recent Infectious Disease Expo: No Recent Hopitalizations: No Immunizations Up To Date Tetanus Booster (TDap): Less than 5yrs Seasonal Allergies Seasonal Allergies: No Surgeries HX Surgeries: Yes (CARPAL TUNNEL) Surgeries: Adenoidectomy, Orthopedic, Tubal Ligation Respiratory Hx Respiratory Disorders: No Cardiovascular Hx Cardiac Disorders: Yes Cardiac Disorders: High Cholesterol, Hypertension Neurological Hx Neurological Disorders: No Reproductive System Hx Reproductive Disorders: Yes (FIBROIDS) Genitourinary Hx Genitourinary Disorders: No Gastrointestinal Hx Gastrointestinal Disorders: No Musculoskeletal Hx Musculoskeletal Disorders: Yes Musculoskeletal Disorders: Chronic Back Pain Endocrine Hx Endocrine Disorders: No HEENT HX ENT Disorders: No Cancer Hx Cancer: No Psychosocial Hx Psychiatric Problems: No Integumentary HX Skin/Integumentary Disorder: Yes (HIVES, ANGIOEDEMA) Blood Transfusions Hx Blood Disorders: No Family Medical History Significant Family History: No Pertinent Family Hx Physical Exam Vital Signs Vital Sign - Last 12Hours 06/24/16 22:48 Temp 96.8 Pulse 93 Resp 20 B/P 158/93 Pulse Ox 97 O2 Delivery Room Air Capillary Refill : Less Than 3 Seconds General Appearance: WD/WN no apparent distress HEENT: PERRL/EOMI normal ENT inspection TMs normal pharynx normal Neck: non-tender full range of motion supple normal inspection Cardiovascular: regular rate, rhythm no murmur Respiratory: normal breath sounds no respiratory distress no accessory muscle use Gastrointestinal: non tender soft Extremities: normal inspection no pedal edema normal capillary refill Neurologic/Psychiatric: national sales manager II-XII nml as tested no motor/sensory deficits alert normal mood/affect oriented x 3 Skin: normal color warm/dry rash (PATCH OF URTICARIA TO LEFT UPPER ABDOMEN. EARLY REDNESS TO LEFT POSTERIOR ILIAC CREST AREA AND BILATERAL LOWER BUTTOCKS AREAS . ) Progress/Results/Core Measures Results/Orders My Orders Orders-RICARDO MEZA DO Methylprednisolone Sod Succ (Solu-Medrol (06/24/16 23:15) Diphenhydramine Injection (Benadryl Inje (06/24/16 23:15) Famotidine Tablet (Pepcid Tablet) (06/24/16 23:15) Medications Given in ED Current Medications Medications Dose Ordered Sig/Deangelo Route Start Time Stop Time Status Last Admin Dose Admin Diphenhydramine HCl 50 mg ONCE ONCE IM 06/24/16 23:15 06/24/16 23:16 DC 06/24/16 23:16 50 MG Famotidine 40 mg ONCE ONCE PO 06/24/16 23:15 06/24/16 23:16 DC 06/24/16 23:17 40 MG Methylprednisolone Sodium Succinate 125 mg ONCE ONCE IM 06/24/16 23:15 06/24/16 23:16 DC 06/24/16 23:16 125 MG Vital Signs/I&O Vital Sign - Last 12Hours 06/24/16 06/24/16 22:48 23:57 Temp 96.8 Pulse 93 82 Resp 20 16 B/P 158/93 Pulse Ox 97 98 O2 Delivery Room Air Blood Pressure Mean: 114 Progress Note : Progress Note ITCHING GONE, THROAT SENSATION HAS RESOLVED, REDNESS IS GONE, AND URTICARIAL PATCH TO LUQ IS SMALLER AND NO ERYTHEMA TO IT--STILL SLIGHTLY RAISED PT COMFORTABLE GOING HOME Departure Impression Impression: Primary Impression: Hives Additional Impression: Medication reaction Disposition: 01 HOME, SELF-CARE Condition: Improved Departure-Patient Inst. Referrals: [facility] ([facility]Family) Primary Care Physician Patient Instructions: Drug Allergy, Hives (DC) Add. Discharge Instructions: LOTS OF WATER BENADRYL 50 MG EVERY 4 HOURS FOR RASH AND ITCHING STOP BACLOFEN [facility] NO BETTER RETURN TO ER IF WORSE All discharge instructions reviewed with patient and/or family. Voiced understanding. RICARDO MEZA DO Jun 24, 2016 23:52
[2016-06-24 23:57] VITALS: BP 130/78
== END 2016-06-24 23:57 | disposition home or self-care (01) ==
LOC: EDUNIT# 22:33 → ER 22:34
DX: L50.9 Urticaria, unspecified (principal); T42.8X5A Adverse effect of antiparkinsonism drugs and other central muscle-tone depressants, initial encounter; I10 Essential (primary) hypertension; Z79.899 Other long term (current) drug therapy
CPT/HCPCS: 96372; 99282

== ENCOUNTER 2016-07-10 22:04 | Emergency (ER) | payer OTHER ==
[~2016-07-10] VITALS: Ht 157.5 cm; Wt 79.8 kg
[2016-07-10] MEDS ORDERED: DEXAMETHASONE PF 10 MG/ML (DECADRON) VIAL IM STA (22:52)
[2016-07-10] MEDS ORDERED: FAMOTIDINE 20 MG (PEPCID) TABLET PO STA (22:52)
[2016-07-10] MEDS ORDERED: diphenhydrAMINE 25 MG TAB (BENADRYL) PO ONE (23:00)
[2016-07-10] MEDS ORDERED: FAMOTIDINE 20MG/2ML IV (PEPCID) IVP ONE (23:15)
[2016-07-10] MEDS ORDERED: methylPREDNISolone 125 MG (Solu-MEDROL) VIAL IVP ONE (23:15)
[2016-07-10] MEDS ORDERED: diphenhydrAMINE 50 MG/ML INJ (BENADRYL) IVP ONE (23:15)
[2016-07-11] MEDS ORDERED: PRD20T PO (00:46)
--- NOTE | 2016-07-11 00:46 | ED General ---
General Chief Complaint: Allergic Reaction Stated Complaint: UNKNOWN ALLERGIC REACTION Nursing Triage Note: PT TO ED 1 W/ C/O HIVES TO ABD ET SWELLING TO THE LOWER LIP, RT SIDE ONSET 1899. NO KNOWN IRRITANT Nursing Sepsis Screen: No Definite Risk Source of Information: Patient, Old Records Exam Limitations: No Limitations History of Present Illness Time Seen by Provider: 22:59 Initial Comments This 61-year-old woman presents to the emergency room with several hours of right lower lip swelling and a few scattered hives. 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 She took a Benadryl 50 mg at 19:00 followed by Pepcid 20 mg orally. She has an EpiPen but did not feel the need to take it today. Symptoms were not improving after oral medications and she therefore presented to the emergency room. Patient notes she had protein C labs performed in May. Those labs were reviewed. Patient denies any difficulty breathing or swelling of the tongue or throat. Allergies and Home Medications Allergies Coded Allergies: peanut (Verified Allergy, Severe, SOA, FACIAL SWELLING, 05/21/16) sulfamethoxazole (Unverified Adverse Reaction, Mild, 05/22/14) trimethoprim (Unverified Adverse Reaction, Mild, 05/22/14) Home Medications Amlodipine Besylate 5 Mg Tablet, 5 MG PO DAILY, (Reported) Cephalexin 500 Mg Tablet, 500 MG PO QID, #20 Prescribed by: WILLA WARREN on 02/04/16 1233 Chlorthalidone 25 Mg Tablet, 25 MG PO DAILY, (Reported) Cyclobenzaprine Hcl 10 Mg Tablet, 10 MG PO TID PRN for MUSCLE SPASMS, (Reported) Hydrocodone Bit/Acetaminophen 1 Tab Tablet, 1 TAB PO Q4H PRN for PAIN, #14 Ref 0 Prescribed by: SIDDHARTH COTTON on 10/09/14 1656 Hydrocodone/Acetaminophen 1 Each Tablet, 1 EACH PO Q6H, #8 Ref 0 Prescribed by: WILLA WARREN on 02/04/16 1233 Hydrocodone/Acetaminophen 1 Each Tablet, 1 EACH PO Q6H PRN for SEVERE PAIN, #10 Prescribed by: BRITT ZIEGLER on 06/18/16 1308 Ibuprofen 800 Mg Tablet, 800 MG PO Q8H PRN for PAIN, #30 Prescribed by: BRITT ZIEGLER on 06/18/16 1308 Ketorolac Tromethamine 10 Mg Tablet, 10 MG PO Q6H, #20 Prescribed by: BUTCH DE JESUS MD on 10/03/15 1821 Meclizine Hcl 25 Mg Tablet, 25 MG PO TID PRN PRN for DIZZINESS, (Reported) [place] 3 Polyunsat Fatty Acids 1,000 Mg Cap, 1,000 MG PO DAILY, (Reported) Pravastatin Sodium 40 Mg Tablet, 40 MG PO HS, (Reported) Prednisone 20 Mg Tab, 40 MG PO DAILY, #6 Prescribed by: WILLA WARREN on 02/04/16 1233 Prednisone 20 Mg Tab, 20 MG PO BID, #6 Prescribed by: OBDULIA BELLA on 07/11/16 0046 Constitutional: no symptoms reported EENTM: see HPI Respiratory: no symptoms reported Cardiovascular: no symptoms reported Gastrointestinal: no symptoms reported Genitourinary: no symptoms reported Musculoskeletal: no symptoms reported Skin: see HPI Psychiatric/Neurological: No Symptoms Reported Hematologic/Lymphatic: No Symptoms Reported Immunological/Allergic: see HPI Past Ypkjrwk-Mpqaia-Oipgko Hx Patient Social History Alcohol Use: Denies Use Recreational Drug Use: No Smoking Status: Never a Smoker 2nd Hand Smoke Exposure: No Recent Foreign Travel: No Contact w/Someone Who Travel: No Recent Infectious Disease Expo: No Recent Hopitalizations: No Immunizations Up To Date Tetanus Booster (TDap): Less than 5yrs Seasonal Allergies Seasonal Allergies: No Surgeries HX Surgeries: Yes (CARPAL TUNNEL) Surgeries: Adenoidectomy, Orthopedic, Tubal Ligation Respiratory Hx Respiratory Disorders: No Cardiovascular Hx Cardiac Disorders: Yes (Angioedema) Cardiac Disorders: High Cholesterol, Hypertension Neurological Hx Neurological Disorders: No Reproductive System Hx Reproductive Disorders: Yes (FIBROIDS) Genitourinary Hx Genitourinary Disorders: No Gastrointestinal Hx Gastrointestinal Disorders: No Musculoskeletal Hx Musculoskeletal Disorders: Yes Musculoskeletal Disorders: Chronic Back Pain Endocrine Hx Endocrine Disorders: No HEENT HX ENT Disorders: Yes (Angioedema of the lips) Cancer Hx Cancer: No Psychosocial Hx Psychiatric Problems: No Integumentary HX Skin/Integumentary Disorder: Yes (HIVES, ANGIOEDEMA) Blood Transfusions Hx Blood Disorders: No Family Medical History Significant Family History: No Pertinent Family Hx Physical Exam Vital Signs Vital Sign - Last 12Hours 07/10/16 22:33 Temp 97.2 Pulse 82 Resp 18 B/P (MAP) 143/82 Pulse Ox 98 O2 Delivery Room Air Capillary Refill : Less Than 3 Seconds General Appearance: No Apparent Distress, WD/WN HEENT: PERRL/EOMI, Pharynx Normal, Other (Right lower lip swelling) Neck: Normal Inspection Respiratory: Lungs Clear, Normal Breath Sounds, No Accessory Muscle Use, No Respiratory Distress Cardiovascular: Regular Rate, Rhythm, No Edema, No Murmur Extremity: Normal Inspection, No Pedal Edema Neurologic/Psychiatric: Alert, Oriented x3, No Motor/Sensory Deficits, Normal Mood/Affect, cocoa bean cleaner II-XII Norm as Tested Skin: Normal Color, Warm/Dry, Rash (Scattered hives) Progress/Results/Core Measures Results/Orders My Orders Orders - OBDULIA MCCOY MD Diphenhydramine Injection (Benadryl Inje (07/10/16 23:15) Methylprednisolone Sod Succ (Solu-Medrol (07/10/16 23:15) Famotidine Injection (Pepcid Injection) (07/10/16 23:15) Medications Given in ED Current Medications Medications Dose Ordered Sig/Deangelo Route Start Time Stop Time Status Last Admin Dose Admin Diphenhydramine HCl 25 mg ONCE ONCE IVP 07/10/16 23:15 07/10/16 23:16 DC 07/10/16 23:20 25 MG Famotidine 20 mg ONCE ONCE IVP 07/10/16 23:15 07/10/16 23:16 DC 07/10/16 23:20 20 MG Methylprednisolone Sodium Succinate 125 mg ONCE ONCE IVP 07/10/16 23:15 07/10/16 23:16 DC 07/10/16 23:20 125 MG Vital Signs/I&O Vital Sign - Last 12Hours 07/10/16 07/11/16 22:33 01:28 Temp 97.2 Pulse 82 84 Resp 18 18 B/P (MAP) 143/82 Pulse Ox 98 98 O2 Delivery Room Air Blood Pressure Mean: 102 Progress Note : Progress Note Patient was given Solu-Medrol 125 mg, Pepcid 20 mg, and Benadryl 25 mg by IV route. Notable improvement of the lip swelling was observed prior to dismissal. Departure Impression Impression: Primary Impression: Angioedema of lips Qualified Codes: T78.3XXA - Angioneurotic edema, initial encounter Additional Impression: Hives Disposition: 01 HOME, SELF-CARE Condition: Improved Departure-Patient Inst. Decision time for Depature: 00:42 Referrals: [facility] (PCP/Family) Primary Care Physician Patient Instructions: Angioedema Add. Discharge Instructions: Continue to take Pepcid (famotidine) 20 mg twice daily. Complete your prednisone as prescribed. Follow-up with your primary care provider as soon as possible and discuss referral to an shop mechanic helper. Take Benadryl 50 mg every 4 hours as needed for continued symptoms. Use your epipen and return to the ER or call 911 if symptoms become severe or you have difficulty breathing. All discharge instructions reviewed with patient and/or family. Voiced understanding. Scripts Prednisone (Prednisone) 20 Mg Tab 20 MG PO BID, #6 TAB Prov: OBDULIA MCCOY MD 07/11/16 OBDULIA MCCOY MD Jul 11, 2016 00:46
[2016-07-11 01:28] VITALS: BP 135/85
--- OUTSIDE RECORDS SUMMARY | 2016-08-14 04:47 | XMS REPORT ---
Author Author SIMA HODGES [facility] eClinicalWorks Address Unknown Phone Unavailable Care Team Providers Care Department Store Salesperson Name Role Phone SIMA HODGES CP Unavailable Allergies No Known Allergies Problems Problem Type Condition ICD-9 Code Onset Dates Condition Status Assessment Edema 782.3 Active Problem Cervicalgia 723.1 Active Problem Unspecified otalgia 388.70 Active Problem Eustachian tube dysfunction 381.81 Active Problem Essential hypertension, benign 401.1 Active Problem Hyperlipemia 272.4 Active Problem Edema 782.3 Active Problem Anxiety state, unspecified 300.00 Active Problem Personal history of, urinary (tract) infection V13.02 Active Problem Unspecified vitamin D deficiency 268.9 Active Assessment 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
--- OUTSIDE RECORDS SUMMARY | 2016-08-14 04:47 | XMS REPORT ---
Author Author SIMA HODGES [facility] eClinical[employer] Address Unknown Phone Unavailable Care Team Providers Care Physician Relations Representative Name Role Phone SIMA HODGES Unavailable Allergies, Adverse Reactions, Alerts Substance Reaction Event Type Macrobid rash Drug Allergy Flagyl Info Not Available Drug Allergy Erythromycin Info Not Available Drug Allergy Cipro hives Drug Allergy Bactrim DS Info Not Available Drug Allergy Amitriptyline HCl dizziness Drug Allergy Peanut Info Not Available Non Drug Allergy Problems Problem Type Condition Code Onset Dates Condition Status Assessment Essential hypertension I10 Active Assessment Hair loss L65.9 Active Problem Mixed hyperlipidemia E78.2 Active Problem Hyperlipidemia LDL goal <160 E78.5 Active Problem Essential hypertension I10 Active Problem Anxiety F41.9 Active Assessment Sinusitis J32.9 Active Problem 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 Active Problem Neck pain M54.2 Active Medications Medication Code System Code Instructions Start Date End Date Status Dosage Amlodipine Besylate [facility] [address]-53 5 MG Orally Once a day November 01, 2014 1 tablet Cyclobenzaprine HCl [facility] [address]-22 10 MG Orally Three times a day prn 1 tablet Hydrocodone-Acetaminophen [facility] [address]-56 5-325 MG Orally 3 -4 times a day prn- Must last 30 days- keep appt on 01/29/15 1 tablet as needed Meclizine HCl [facility] [address]-66 25 MG Orally Once a day 1 tablet as needed Chlorthalidone [facility] [address]-96 25 MG Once a day 2 tablets Fish Oil [facility] [address]-52 1000 MG Orally Once a day 1 capsule HydrOXYzine HCl [facility] [address]-40 10 mg July 04, 2014 1 tablet by Oral route 4-6 times per day PRN Pravastatin Sodium [facility] 30534231519 40 MG TAKE ONE TABLET BY MOUTH AT BEDTIME Doxycycline Hyclate [facility] [address]-69 100 MG Orally every 12 hrs Feb 12, 2015 Feb 22, 2015 1 capsule Procedures Procedure Coding System Code Date Office Visit, Est Pt., Level 3 CPT-4 84308 Feb 12, 2015 Vital Signs Date/Time: Feb 12, 2015 Temperature 98.1 F Weight 170.4 lbs Height 62 in BMI 31.16 Index Blood Pressure Diastolic 80 mmHg Blood Pressure Systolic 120 mmHg Cardiac Monitoring Heart Rate 82 bpm Results No Known Results Summary Purpose eClinicalWorks Submission
--- OUTSIDE RECORDS SUMMARY | 2016-08-14 04:47 | XMS REPORT | Continuity of Care Document ---
Author Author [facility] Organization [facility] Address Unknown Phone Unavailable Care Team Providers Care Sales Agent Financial Report Service Name Role Phone Elvi Ortiz PCP [phone] Source Comments Some departments are not documenting in the electronic medical record. If you do not see the information that you expected, contact Release of Information in the Health Information Management department at [phone] for further assistance in locating additional records.[facility] Active Allergies and Adverse Reactions [...] Health Maintenance Due Date Last Done Comments Hepatitis C Screening 1957 Physical (Comprehensive) 1964 Exam Pertussis Vaccine 1968 Tetanus Vaccine 1974 Cervical Cancer Screening 1978 Breast Cancer Screening 1997 Colorectal Cancer 2007 Screening Influenza Vaccine 12/09/2016 Results from Last 3 Months Not on file
--- OUTSIDE RECORDS SUMMARY | 2016-08-14 04:48 | XMS REPORT ---
Author Author SIMA HODGES [facility] eClinicalWorks Address Unknown Phone Unavailable Care Team Providers Care Coil Connector Repairer Name Role Phone SIMA HODGES Unavailable Allergies, Adverse Reactions, Alerts Substance Reaction Event Type Macrobid rash Drug Allergy Flagyl Info Not Available Drug Allergy Erythromycin Info Not Available Drug Allergy Cipro hives Drug Allergy Bactrim DS Info Not Available Drug Allergy Amitriptyline HCl dizziness Drug Allergy Peanut Info Not Available Non Drug Allergy Problems Problem Type Condition Code Onset Dates Condition Status Assessment Mixed hyperlipidemia E78.2 Active Assessment 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 Active Assessment Neck pain M54.2 Active Assessment Anxiety F41.9 Active Problem Mixed hyperlipidemia E78.2 Active Problem Hyperlipidemia LDL goal <160 E78.5 Active Problem Essential hypertension I10 Active Problem Anxiety F41.9 Active Assessment Essential hypertension I10 Active Problem 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 Active Problem Neck pain M54.2 Active Medications Medication Code System Code Instructions Start Date End Date Status Dosage Cyclobenzaprine HCl [facility] [address]-58 10 MG Orally Three times a day prn 1 tablet HydrOXYzine HCl [facility] [address]-11 10 mg July 04, 2014 1 tablet by Oral route 4-6 times per day PRN Pravastatin Sodium [facility] 60928000451 40 MG TAKE ONE TABLET BY MOUTH AT BEDTIME Amlodipine Besylate [facility] [address]-15 5 MG Orally Once a day November 01, 2014 1 tablet Hydrocodone-Acetaminophen [facility] [address]-26 5-325 MG Orally 3 -4 times a day prn- Must last 30 days- keep appt on 01/29/15 1 tablet as needed Meclizine HCl [facility] [address]-78 25 MG Orally Once a day 1 tablet as needed Fish Oil [facility] [address]-17 1000 MG Orally Once a day 1 capsule Chlorthalidone [facility] [address]-75 25 MG Once a day 2 tablets Procedures Procedure Coding System Code Date Office Visit, Est Pt., Level 3 CPT-4 77639 Jan 29, 2015 Vital Signs Date/Time: Jan 29, 2015 Temperature 97.6 F Weight 171.5 lbs Height 62 in BMI 31.36 Index Blood Pressure Diastolic 76 mmHg Blood Pressure Systolic 118 mmHg Cardiac Monitoring Heart Rate 80 bpm Results No Known Results Summary Purpose eClinicalWorks Submission
--- OUTSIDE RECORDS SUMMARY | 2016-08-14 04:48 | XMS REPORT ---
Author Author SIMA HODGES Organization [employer] Address Unknown Phone Unavailable Care Team Providers Care Wearing Apparel Assembler Name Role Phone SIMA HODGES CP Unavailable Allergies No Known Allergies Problems Problem Type Condition Code Onset Dates Condition Status Problem Hyperlipidemia LDL goal <160 E78.5 Active Problem Essential hypertension I10 Active Problem Mixed hyperlipidemia E78.2 Active Problem Acute stress disorder F43.0 Active Problem Dysuria R30.0 Active Problem 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 Active Problem Hypokalemia E87.6 Active Problem Constipation K59.00 Active Problem Hematuria R31.9 Active Problem Abnormal fasting glucose R73.09 Active Problem Abnormal mammogram R92.8 Active Problem Anxiety F41.9 Active Problem Neck pain M54.2 Active Problem 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 must last 4 weeks 1 tablet as needed Results No Known Results Summary Purpose [employer] Submission
--- OUTSIDE RECORDS SUMMARY | 2016-08-14 04:48 | XMS REPORT ---
Author Author SIMA HODGES [facility] [employer] Address Unknown Phone Unavailable Care Team Providers Care Forestry Aid Technician Name Role Phone SIMA HODGES Unavailable Allergies, Adverse Reactions, Alerts Substance Reaction Event Type Macrobid rash Drug Allergy Flagyl Info Not Available Drug Allergy Erythromycin Info Not Available Drug Allergy Cipro hives Drug Allergy Bactrim DS Info Not Available Drug Allergy Amitriptyline HCl dizziness Drug Allergy Peanut Info Not Available Non Drug Allergy Problems Problem Type Condition ICD-9 Code Onset Dates Condition Status Assessment Lumbar back pain 724.2 Active Problem Cervicalgia 723.1 Active Problem Unspecified otalgia 388.70 Active Assessment Neuroforaminal stenosis of spine 724.00 Active Problem Eustachian tube dysfunction 381.81 Active Problem Essential hypertension, benign 401.1 Active Problem Hyperlipemia 272.4 Active Problem Edema 782.3 Active Problem Anxiety state, unspecified 300.00 Active Problem Personal history of, urinary (tract) infection V13.02 Active Problem Unspecified vitamin D deficiency 268.9 Active Medications Medication Code System Code Instructions Start Date End Date Status Dosage pravastatin [facility] [address]-55 40 mg August 12, 2013 1 tablet by Oral route 1 time per day QHS. Avoid grapefruit juice and products with grapefruit. Meclizine HCl [facility] [address]-19 25 MG Orally Once a day 1 tablet as needed Pravastatin Sodium [facility] 32874534723 40 MG TAKE ONE TABLET BY MOUTH [place] [address]-95 5 MG Orally Once a day November 01, 2014 1 tablet Hydrocodone-Acetaminophen [facility] [address]-40 5-325 MG Orally 3 -4 times a day prn- Must last 30 days- keep appt on 12/03/14 1 tablet as needed Chlorthalidone [facility] [address]-81 25 MG Once a day 2 tablets Procedures Procedure Coding System Code Date Office Visit, Est Pt., Level 3 CPT-4 54286 Dec 30, 2014 Vital Signs Date/Time: Dec 30, 2014 Temperature 98.4 F Weight 169.5 lbs Height 62 in BMI 31.00 Index Blood Pressure Diastolic 84 mmHg Blood Pressure Systolic 124 mmHg Cardiac Monitoring Heart Rate 80 bpm Results No Known Results Summary Purpose [employer] Submission
--- OUTSIDE RECORDS SUMMARY | 2016-08-14 04:53 | XMS REPORT | Continuity of Care Document ---
Author Author [facility] Ctr of [facility] Ctr of [facility] Address Unknown Phone Unavailable Allergies Active Description Code Type Severity Reaction Onset Reported/Identified Relationship to Patient Clinical Status Yes NKDA NKDA Mild N/A 07/10/2008 Yes Bactrim Drug Allergy N/A N/A 08/05/2010 Yes Bactrim Drug Allergy 08/05/2010 Yes Flexeril Drug Allergy N/A N/A 08/12/2010 Yes traMADOL Drug Allergy N/A N/A 08/12/2010 Yes Flexeril Drug Allergy 08/12/2010 Yes traMADOL Drug Allergy 08/12/2010 Yes Erythromycin Base Drug Allergy N/A N/A 03/01/2011 Yes erythromycin ophthalmic Drug Allergy 03/01/2011 Yes Cipro Drug Allergy N/A N/A 08/14/2012 Yes Macrobid Drug Allergy N/A N/A 08/14/2012 Yes Flagyl 500 mg Tablet Drug Allergy N/A N/A 10/18/2013 Yes PEANUT Food Allergy N/A N/A 10/18/2013 Yes sulfamethoxazole [id number] Drug Allergy Mild N/A 05/22/2014 Yes trimethoprim [id number] Drug Allergy Mild N/A 05/22/2014 Yes amitriptyline 25 mg tablet Drug Allergy N/A N/A 06/05/2014 Yes No Known Allergies No Known Allergies Drug Allergy Unknown N/A 09/11/2014 Yes peanut [id number] Drug Allergy Severe SOA, FACIAL SWE 05/21/2016 Medications Problems Date Dx Coded Attending Type Code Diagnosis Diagnosed By 03/09/1416 OTHER, UNLISTED Ot M75.82 OTHER SHOULDER LESIONS, LEFT SHOULDER 03/09/1527 JULIAN GALEANO MD Ot G89.29 03/09/1527 JULIAN GALEANO MD Ot M54.9 04/09/2008 ROSANNA NELSON DO 401.1 ESSENTIAL HYPERTENSION BENIGN 04/09/2008 ROSANNA NELSON DO 401.1 ESSENTIAL HYPERTENSION BENIGN 04/09/2008 401.1 ESSENTIAL HYPERTENSION BENIGN 04/09/2008 401.1 ESSENTIAL HYPERTENSION BENIGN 04/09/2008 JORDON ESCOBAR, NASRA 401.1 ESSENTIAL HYPERTENSION BENIGN 04/09/2008 NELSON DO, ROSANNA K 401.1 ESSENTIAL HYPERTENSION BENIGN 04/09/2008 NGOC COREAS MD, BARTOLOME A 401.1 ESSENTIAL HYPERTENSION BENIGN 04/09/2008 401.1 ESSENTIAL HYPERTENSION BENIGN 04/09/2008 NELSON DO, ROSANNA K 401.1 ESSENTIAL HYPERTENSION BENIGN 04/09/2008 401.1 ESSENTIAL HYPERTENSION BENIGN 04/09/2008 401.1 ESSENTIAL HYPERTENSION BENIGN 04/09/2008 401.1 ESSENTIAL HYPERTENSION BENIGN 04/09/2008 401.1 ESSENTIAL HYPERTENSION BENIGN 04/09/2008 401.1 ESSENTIAL HYPERTENSION BENIGN 04/09/2008 401.1 ESSENTIAL HYPERTENSION BENIGN 04/09/2008 WILY RAMIREZ MD 401.1 ESSENTIAL HYPERTENSION BENIGN 04/09/2008 BERNARD CORRIGAN, PACHECO A 401.1 ESSENTIAL HYPERTENSION BENIGN 04/09/2008 NELSON DO, ROSANNA K 401.1 ESSENTIAL HYPERTENSION BENIGN 04/09/2008 WILY RAMIREZ MD 401.1 ESSENTIAL HYPERTENSION BENIGN 04/09/2008 BERNARD CORRIGAN PACHECO A 401.1 ESSENTIAL HYPERTENSION BENIGN 04/09/2008 CLIFTON CORRIGAN RAFA R 401.1 ESSENTIAL HYPERTENSION BENIGN 04/09/2008 NELSON DO, ROSANNA K 401.1 ESSENTIAL HYPERTENSION BENIGN 04/09/2008 SIMA HODGES APRN 401.1 ESSENTIAL HYPERTENSION BENIGN 04/09/2008 NELSON DO, ROSANNA K 401.1 ESSENTIAL HYPERTENSION BENIGN 04/09/2008 NELSON DO, ROSANNA K 401.1 ESSENTIAL HYPERTENSION BENIGN 04/09/2008 NELSON DO, ROSANNA K 401.1 ESSENTIAL HYPERTENSION BENIGN 04/09/2008 BERNARD CORRIGAN PACHECO A 401.1 ESSENTIAL HYPERTENSION BENIGN 04/09/2008 NELSON DO, ROSANNA K 401.1 ESSENTIAL HYPERTENSION BENIGN 04/09/2008 AUSTIN ROBERT DDS 401.1 ESSENTIAL HYPERTENSION BENIGN 04/09/2008 NELSON DO, ROSANNA K 401.1 ESSENTIAL HYPERTENSION BENIGN 04/09/2008 NELSON DO, ROSANNA K 401.1 ESSENTIAL HYPERTENSION BENIGN 04/09/2008 NELSON DO, ROSANNA K 401.1 ESSENTIAL HYPERTENSION BENIGN 04/09/2008 BERNARD CORRIGAN, PACHECO A 401.1 ESSENTIAL HYPERTENSION BENIGN 04/09/2008 NELSON DO, ROSANNA K 401.1 ESSENTIAL HYPERTENSION BENIGN 04/09/2008 ONIEL HARRIS APRN R 401.1 ESSENTIAL HYPERTENSION BENIGN 05/29/2008 NELSON DO, ROSANNA K 698.9 Itching (pruritus) 05/29/2008 NELSON DO, ROSANNA K 698.9 Itching (pruritus) 05/29/2008 698.9 Itching (pruritus) 05/29/2008 698.9 Itching (pruritus) 05/29/2008 JORDON ESCOBAR, NASRA 698.9 Itching (pruritus) 05/29/2008 NELSON DO, ROSANNA K 698.9 Itching (pruritus) 05/29/2008 NGOC COREAS MD, BARTOLOME A 698.9 Itching (pruritus) 05/29/2008 698.9 Itching (pruritus) 05/29/2008 NELSON DO, ROSANNA K 698.9 Itching (pruritus) 05/29/2008 698.9 Itching (pruritus) 05/29/2008 698.9 Itching (pruritus) 05/29/2008 698.9 Itching (pruritus) 05/29/2008 698.9 Itching (pruritus) 05/29/2008 698.9 Itching (pruritus) 05/29/2008 698.9 Itching (pruritus) 05/29/2008 WILY RAMIREZ MD 698.9 Itching (pruritus) 05/29/2008 AMIRAH WAGNER APRNIDI A 698.9 Itching (pruritus) 05/29/2008 NELSON , ROSANNA K 698.9 Itching (pruritus) 05/29/2008 WILY RAMIREZ MD 698.9 Itching (pruritus) 05/29/2008 BERNARD CORRIGAN PACHECO A 698.9 Itching (pruritus) 05/29/2008 RAFA LAZO APRN 698.9 Itching (pruritus) 05/29/2008 NELSON DO, ROSANNA K 698.9 Itching (pruritus) 05/29/2008 SIMA HODGES APRN 698.9 Itching (pruritus) 05/29/2008 NELSON DO, ROSANNA K 698.9 Itching (pruritus) 05/29/2008 NELSON DO, ROSANNA K 698.9 Itching (pruritus) 05/29/2008 NELSON DO, ROSANNA K 698.9 Itching (pruritus) 05/29/2008 BERNARDMIGUEL CORRIGAN, PACHECO A 698.9 Itching (pruritus) 05/29/2008 NELSON DO, ROSANNA K 698.9 Itching (pruritus) 05/29/2008 WHITE DDS, AUSTIN Cisneros 698.9 Itching (pruritus) 05/29/2008 NELSON DO, ROSANNA K 698.9 Itching (pruritus) 05/29/2008 NELSON DO, ROSANNA K 698.9 Itching (pruritus) 05/29/2008 NELSON DO, ROSANNA K 698.9 Itching (pruritus) 05/29/2008 BERNARD APRN, PACHECO A 698.9 Itching (pruritus) 05/29/2008 NELSON DO, ROSANNA K 698.9 Itching (pruritus) 05/29/2008 ONIEL HARRIS APRN 698.9 Itching (pruritus) 05/30/2008 NELSON DO, ROSANNA K 272.0 HYPERCHOLESTEROLEMIA PURE 05/30/2008 NELSON DO, ROSANNA K 272.0 HYPERCHOLESTEROLEMIA PURE 05/30/2008 272.0 HYPERCHOLESTEROLEMIA PURE 05/30/2008 272.0 HYPERCHOLESTEROLEMIA PURE 05/30/2008 NASRA RUVALCABA MD 272.0 HYPERLIPIDEMIA FAMILIAL HYPERCHOLESTEROLEMIA 05/30/2008 NELSON DO, ROSANNA K 272.0 HYPERLIPIDEMIA FAMILIAL HYPERCHOLESTEROLEMIA 05/30/2008 NGOC COREAS MD, BARTOLOME A 272.0 HYPERLIPIDEMIA FAMILIAL HYPERCHOLESTEROLEMIA 05/30/2008 272.0 HYPERLIPIDEMIA FAMILIAL HYPERCHOLESTEROLEMIA 05/30/2008 NELSON DO, ROSANNA K 272.0 HYPERLIPIDEMIA FAMILIAL HYPERCHOLESTEROLEMIA 05/30/2008 272.0 HYPERLIPIDEMIA FAMILIAL HYPERCHOLESTEROLEMIA 05/30/2008 272.0 HYPERLIPIDEMIA FAMILIAL HYPERCHOLESTEROLEMIA 05/30/2008 272.0 HYPERLIPIDEMIA FAMILIAL HYPERCHOLESTEROLEMIA 05/30/2008 272.0 HYPERLIPIDEMIA FAMILIAL HYPERCHOLESTEROLEMIA 05/30/2008 272.0 HYPERLIPIDEMIA FAMILIAL HYPERCHOLESTEROLEMIA 05/30/2008 272.0 HYPERLIPIDEMIA FAMILIAL HYPERCHOLESTEROLEMIA 05/30/2008 WILY RAMIREZ MD 272.0 HYPERLIPIDEMIA FAMILIAL HYPERCHOLESTEROLEMIA 05/30/2008 PACHECO WAGNER APRN A 272.0 HYPERLIPIDEMIA FAMILIAL HYPERCHOLESTEROLEMIA 05/30/2008 NELSON DO ROSANNA K 272.0 HYPERLIPIDEMIA FAMILIAL HYPERCHOLESTEROLEMIA 05/30/2008 WILY RAMIREZ MD 272.0 HYPERLIPIDEMIA FAMILIAL HYPERCHOLESTEROLEMIA 05/30/2008 BERNARD CORRIGAN, PACHECO A 272.0 HYPERLIPIDEMIA FAMILIAL HYPERCHOLESTEROLEMIA 05/30/2008 RAFA LAZO APRN R 272.0 HYPERLIPIDEMIA FAMILIAL HYPERCHOLESTEROLEMIA 05/30/2008 NELSON DO, ROSANNA K 272.0 HYPERLIPIDEMIA FAMILIAL HYPERCHOLESTEROLEMIA 05/30/2008 MADL CONDUCTOR AND ENGINEER, SIMA L 272.0 HYPERLIPIDEMIA FAMILIAL HYPERCHOLESTEROLEMIA 05/30/2008 NELSON DO, ROSANNA K 272.0 HYPERLIPIDEMIA FAMILIAL HYPERCHOLESTEROLEMIA 05/30/2008 NELSON DO, ROSANNA K 272.0 HYPERLIPIDEMIA FAMILIAL HYPERCHOLESTEROLEMIA 05/30/2008 NELSON DO, ROSANNA K 272.0 HYPERLIPIDEMIA FAMILIAL HYPERCHOLESTEROLEMIA 05/30/2008 BERNARD CONDUCTOR AND ENGINEER, PACHECO A 272.0 HYPERLIPIDEMIA FAMILIAL HYPERCHOLESTEROLEMIA 05/30/2008 NELSON DO, ROSANNA K 272.0 HYPERLIPIDEMIA FAMILIAL HYPERCHOLESTEROLEMIA 05/30/2008 WHITE DDS, UASTIN D 272.0 HYPERLIPIDEMIA FAMILIAL HYPERCHOLESTEROLEMIA 05/30/2008 NELSON DO, ROSANNA K 272.0 HYPERLIPIDEMIA FAMILIAL HYPERCHOLESTEROLEMIA 05/30/2008 NELSON DO, ROSANNA K 272.0 HYPERLIPIDEMIA FAMILIAL HYPERCHOLESTEROLEMIA 05/30/2008 NELSON DO, ROSANNA K 272.0 HYPERLIPIDEMIA FAMILIAL HYPERCHOLESTEROLEMIA 05/30/2008 BERNARD CONDUCTOR AND ENGINEER, PACHECO A 272.0 HYPERLIPIDEMIA FAMILIAL HYPERCHOLESTEROLEMIA 05/30/2008 NELSON DO, ROSANNA K 272.0 HYPERLIPIDEMIA FAMILIAL HYPERCHOLESTEROLEMIA 05/30/2008 KIMBERLY CORRIGAN, ONIEL R 272.0 HYPERLIPIDEMIA FAMILIAL HYPERCHOLESTEROLEMIA 07/01/2008 NELSON DO, ROSANNA K 401.9 ESSENTIAL HYPERTENSION 07/01/2008 NELSON DO, ROSANNA K 401.9 ESSENTIAL HYPERTENSION 07/01/2008 401.9 ESSENTIAL HYPERTENSION 07/01/2008 401.9 ESSENTIAL HYPERTENSION 07/01/2008 NASRA RUVALCABA MD 401.9 ESSENTIAL HYPERTENSION 07/01/2008 NELSON DO, ROSANNA K 401.9 ESSENTIAL HYPERTENSION 07/01/2008 NGOC COREAS MD, BARTOLOME Willis 401.9 ESSENTIAL HYPERTENSION 07/01/2008 401.9 ESSENTIAL HYPERTENSION 07/01/2008 NELSON DO, ROSANNA K 401.9 ESSENTIAL HYPERTENSION 07/01/2008 401.9 ESSENTIAL HYPERTENSION 07/01/2008 401.9 ESSENTIAL HYPERTENSION 07/01/2008 401.9 ESSENTIAL HYPERTENSION 07/01/2008 401.9 ESSENTIAL HYPERTENSION 07/01/2008 401.9 ESSENTIAL HYPERTENSION 07/01/2008 401.9 ESSENTIAL HYPERTENSION 07/01/2008 WILY RAMIREZ MD 401.9 ESSENTIAL HYPERTENSION 07/01/2008 BERNARD CORRIGAN, PACHECO A 401.9 ESSENTIAL HYPERTENSION 07/01/2008 NELSON DO, ROSANNA K 401.9 ESSENTIAL HYPERTENSION 07/01/2008 WILY RAMIREZ MD 401.9 ESSENTIAL HYPERTENSION 07/01/2008 BERNARD CONDUCTOR AND ENGINEER, PACHECO A 401.9 ESSENTIAL HYPERTENSION 07/01/2008 CLIFTON CONDUCTOR AND ENGINEER, RAFA R 401.9 ESSENTIAL HYPERTENSION 07/01/2008 NELSON DO, ROSANNA K 401.9 ESSENTIAL HYPERTENSION 07/01/2008 CARROLL CONDUCTOR AND ENGINEER, SIMA L 401.9 ESSENTIAL HYPERTENSION 07/01/2008 NELSON DO, ROSANNA K 401.9 ESSENTIAL HYPERTENSION 07/01/2008 NELSON DO, ROSANNA K 401.9 ESSENTIAL HYPERTENSION 07/01/2008 NELSON DO, ROSANNA K 401.9 ESSENTIAL HYPERTENSION 07/01/2008 BERNARD CONDUCTOR AND ENGINEER, PACHECO A 401.9 ESSENTIAL HYPERTENSION 07/01/2008 NELSON DO, ROSANNA K 401.9 ESSENTIAL HYPERTENSION 07/01/2008 JAKOB DDS, AUSTIN Cisneros 401.9 ESSENTIAL HYPERTENSION 07/01/2008 NELSON DO, ROSANNA K 401.9 ESSENTIAL HYPERTENSION 07/01/2008 NELSON DO, ROSANNA K 401.9 ESSENTIAL HYPERTENSION 07/01/2008 NELSON DO, ROSANNA K 401.9 ESSENTIAL HYPERTENSION 07/01/2008 BERNARD CONDUCTOR AND ENGINEER, PACHECO A 401.9 ESSENTIAL HYPERTENSION 07/01/2008 NELSON DO, ROSANNA K 401.9 ESSENTIAL HYPERTENSION 07/01/2008 KIMBERLY CONDUCTOR AND ENGINEERCYNTHIA MillerIA R 401.9 ESSENTIAL HYPERTENSION 02/03/2009 NELSON DO, ROSANNA K 719.44 COMPRESSION ARTHRALGIA - HAND 02/03/2009 NELSON DO, ROSANNA K 719.44 COMPRESSION ARTHRALGIA - HAND 02/03/2009 719.44 COMPRESSION ARTHRALGIA - HAND 02/03/2009 719.44 COMPRESSION ARTHRALGIA - HAND 02/03/2009 NASRA RUVALCABA MD 719.44 COMPRESSION ARTHRALGIA - HAND 02/03/2009 NELSON DOROSANNA K 719.44 COMPRESSION ARTHRALGIA - HAND 02/03/2009 NGOC COREAS MD, BARTOLOME Willis 719.44 COMPRESSION ARTHRALGIA - HAND 02/03/2009 719.44 COMPRESSION ARTHRALGIA - HAND 02/03/2009 NELSON DOROSANNA 719.44 COMPRESSION ARTHRALGIA - HAND 02/03/2009 719.44 COMPRESSION ARTHRALGIA - HAND 02/03/2009 719.44 COMPRESSION ARTHRALGIA - HAND 02/03/2009 719.44 COMPRESSION ARTHRALGIA - HAND 02/03/2009 719.44 COMPRESSION ARTHRALGIA - HAND 02/03/2009 719.44 COMPRESSION ARTHRALGIA - HAND 02/03/2009 719.44 COMPRESSION ARTHRALGIA - HAND 02/03/2009 WILY RAMIREZ MD 719.44 COMPRESSION ARTHRALGIA - HAND 02/03/2009 PACHECO WAGNER APRN A 719.44 COMPRESSION ARTHRALGIA - HAND 02/03/2009 SAGE NELSON DOA K 719.44 COMPRESSION ARTHRALGIA - HAND 02/03/2009 WILY RAMIREZ MD 719.44 COMPRESSION ARTHRALGIA - HAND 02/03/2009 PACHECO WAGNER APRN A 719.44 COMPRESSION ARTHRALGIA - HAND 02/03/2009 RAFA LAZO APRN 719.44 COMPRESSION ARTHRALGIA - HAND 02/03/2009 NELSON DO ROSANNA K 719.44 COMPRESSION ARTHRALGIA - HAND 02/03/2009 SIMA HODGES APRN 719.44 COMPRESSION ARTHRALGIA - HAND 02/03/2009 NELSON DO ROSANNA K 719.44 COMPRESSION ARTHRALGIA - HAND 02/03/2009 NELSON DO, ROSANNA K 719.44 COMPRESSION ARTHRALGIA - HAND 02/03/2009 NELSON DO, ROSANNA K 719.44 COMPRESSION ARTHRALGIA - HAND 02/03/2009 PACHECO WAGNER APRN A 719.44 COMPRESSION ARTHRALGIA - HAND 02/03/2009 NELSON DO, ROSANNA K 719.44 COMPRESSION ARTHRALGIA - HAND 02/03/2009 JAKOB DDS, AUSTIN Cisneros 719.44 COMPRESSION ARTHRALGIA - HAND 02/03/2009 NELSON DO, ROSANNA K 719.44 COMPRESSION ARTHRALGIA - HAND 02/03/2009 NELSON DO, ROSANNA K 719.44 COMPRESSION ARTHRALGIA - HAND 02/03/2009 NELSON DO, ROSANNA K 719.44 COMPRESSION ARTHRALGIA - HAND 02/03/2009 PACHECO WAGNER APRN A 719.44 COMPRESSION ARTHRALGIA - HAND 02/03/2009 NELSON DO, ROSANNA K 719.44 COMPRESSION ARTHRALGIA - HAND 02/03/2009 ONIEL HARRIS APRN 719.44 COMPRESSION ARTHRALGIA - HAND 03/18/2009 NELSON DO ROSANNA K 382.00 Otitis Media Acute Without Spontaneous Rupture Eardrum 03/18/2009 ROSANNA NELSON DO K 382.00 Otitis Media Acute Without Spontaneous Rupture Eardrum 03/18/2009 382.00 Otitis Media Acute Without Spontaneous Rupture Eardrum 03/18/2009 382.00 Otitis Media Acute Without Spontaneous Rupture Eardrum 03/18/2009 NASRA RUVALCABA MD 382.00 Otitis Media Acute Without Spontaneous Rupture Eardrum 03/18/2009 NELSON ROSANNA JOHNSTON K 382.00 Otitis Media Acute Without Spontaneous Rupture Eardrum 03/18/2009 NGOC COREAS MD, BARTOLOME A 382.00 Otitis Media Acute Without Spontaneous Rupture Eardrum 03/18/2009 382.00 Otitis Media Acute Without Spontaneous Rupture Eardrum 03/18/2009 NELSON DOROSANNA K 382.00 Otitis Media Acute Without Spontaneous Rupture Eardrum 03/18/2009 382.00 Otitis Media Acute Without Spontaneous Rupture Eardrum 03/18/2009 382.00 Otitis Media Acute Without Spontaneous Rupture Eardrum 03/18/2009 382.00 Otitis Media Acute Without Spontaneous Rupture Eardrum 03/18/2009 382.00 Otitis Media Acute Without Spontaneous Rupture Eardrum 03/18/2009 382.00 Otitis Media Acute Without Spontaneous Rupture Eardrum 03/18/2009 382.00 Otitis Media Acute Without Spontaneous Rupture Eardrum 03/18/2009 WILY RAMIREZ MD 382.00 Otitis Media Acute Without Spontaneous Rupture Eardrum 03/18/2009 PACHECO WAGNER APRN A 382.00 Otitis Media Acute Without Spontaneous Rupture Eardrum 03/18/2009 ROSANNA NELSON DO K 382.00 Otitis Media Acute Without Spontaneous Rupture Eardrum 03/18/2009 WILY RAMIREZ MD 382.00 Otitis Media Acute Without Spontaneous Rupture Eardrum 03/18/2009 BERNARD CORRIGAN PACHECO A 382.00 Otitis Media Acute Without Spontaneous Rupture Eardrum 03/18/2009 RAFA LAZO APRN R 382.00 Otitis Media Acute Without Spontaneous Rupture Eardrum 03/18/2009 ROSANNA NELSON DO K 382.00 Otitis Media Acute Without Spontaneous Rupture Eardrum 03/18/2009 SIMA HODGES APRN 382.00 Otitis Media Acute Without Spontaneous Rupture Eardrum 03/18/2009 SAGE NELSON DOA K 382.00 Otitis Media Acute Without Spontaneous Rupture Eardrum 03/18/2009 SAGE NELSON DOA K 382.00 Otitis Media Acute Without Spontaneous Rupture Eardrum 03/18/2009 NELSON DO, ROSANNA K 382.00 Otitis Media Acute Without Spontaneous Rupture Eardrum 03/18/2009 BERNARD CONDUCTOR AND ENGINEER, PACHECO A 382.00 Otitis Media Acute Without Spontaneous Rupture Eardrum 03/18/2009 NELSON DO, ROSANNA K 382.00 Otitis Media Acute Without Spontaneous Rupture Eardrum 03/18/2009 WHITE DDS, AUSTIN D 382.00 Otitis Media Acute Without Spontaneous Rupture Eardrum 03/18/2009 NELSON DO, ROSANNA K 382.00 Otitis Media Acute Without Spontaneous Rupture Eardrum 03/18/2009 NELSON DO, ROSANNA K 382.00 Otitis Media Acute Without Spontaneous Rupture Eardrum 03/18/2009 NELSON DO, ROSANNA K 382.00 Otitis Media Acute Without Spontaneous Rupture Eardrum 03/18/2009 BERNARD CONDUCTOR AND ENGINEER, PACHECO A 382.00 Otitis Media Acute Without Spontaneous Rupture Eardrum 03/18/2009 NELSON DO, ROSANNA K 382.00 Otitis Media Acute Without Spontaneous Rupture Eardrum 03/18/2009 KIMBERLY CORRIGAN, ONIEL Massey 382.00 Otitis Media Acute Without Spontaneous Rupture Eardrum 08/03/2009 NELSON DO, ROSANNA K 995.3 Certain Adverse Effects Not Elsewhere Classified, Allergy, Unspecified 08/03/2009 NELSON DO, ROSANNA K 995.3 Certain Adverse Effects Not Elsewhere Classified, Allergy, Unspecified 08/03/2009 995.3 Certain Adverse Effects Not Elsewhere Classified, Allergy, Unspecified 08/03/2009 995.3 Certain Adverse Effects Not Elsewhere Classified, Allergy, Unspecified 08/03/2009 JORDON ESCOBAR, NASRA 995.3 Certain Adverse Effects Not Elsewhere Classified, Allergy, Unspecified 08/03/2009 NELSON DO, ROSANNA K 995.3 Certain Adverse Effects Not Elsewhere Classified, Allergy, Unspecified 08/03/2009 NGOC COREAS MD, BARTOLOME Willis 995.3 Certain Adverse Effects Not Elsewhere Classified, Allergy, Unspecified 08/03/2009 995.3 Certain Adverse Effects Not Elsewhere Classified, Allergy, Unspecified 08/03/2009 NELSON DO, ROSANNA K 995.3 Certain Adverse Effects Not Elsewhere Classified, Allergy, Unspecified 08/03/2009 995.3 Certain Adverse Effects Not Elsewhere Classified, Allergy, Unspecified 08/03/2009 995.3 Certain Adverse Effects Not Elsewhere Classified, Allergy, Unspecified 08/03/2009 995.3 Certain Adverse Effects Not Elsewhere Classified, Allergy, Unspecified 08/03/2009 995.3 Certain Adverse Effects Not Elsewhere Classified, Allergy, Unspecified 08/03/2009 995.3 Certain Adverse Effects Not Elsewhere Classified, Allergy, Unspecified 08/03/2009 995.3 Certain Adverse Effects Not Elsewhere Classified, Allergy, Unspecified 08/03/2009 WILY RAMIREZ MD 995.3 Certain Adverse Effects Not Elsewhere Classified, Allergy, Unspecified 08/03/2009 BERNARD CONDUCTOR AND ENGINEER, PACHECO A 995.3 Certain Adverse Effects Not Elsewhere Classified, Allergy, Unspecified 08/03/2009 NELSON DO, ROSANNA K 995.3 Certain Adverse Effects Not Elsewhere Classified, Allergy, Unspecified 08/03/2009 WILY RAMIREZ MD 995.3 Certain Adverse Effects Not Elsewhere Classified, Allergy, Unspecified 08/03/2009 BERNARD CONDUCTOR AND ENGINEER, PACHECO A 995.3 Certain Adverse Effects Not Elsewhere Classified, Allergy, Unspecified 08/03/2009 RAFA LAZO APRN 995.3 Certain Adverse Effects Not Elsewhere Classified, Allergy, Unspecified 08/03/2009 NELSON DO, ROSANNA K 995.3 Certain Adverse Effects Not Elsewhere Classified, Allergy, Unspecified 08/03/2009 SIMA HODGES APRN 995.3 Certain Adverse Effects Not Elsewhere Classified, Allergy, Unspecified 08/03/2009 NELSON DO, ROSANNA K 995.3 Certain Adverse Effects Not Elsewhere Classified, Allergy, Unspecified 08/03/2009 NELSON DO, ROSANNA K 995.3 Certain Adverse Effects Not Elsewhere Classified, Allergy, Unspecified 08/03/2009 NELSON DO, ROSANNA K 995.3 Certain Adverse Effects Not Elsewhere Classified, Allergy, Unspecified 08/03/2009 BERNARD CONDUCTOR AND ENGINEER, PACHECO A 995.3 Certain Adverse Effects Not Elsewhere Classified, Allergy, Unspecified 08/03/2009 NELSON DO, ROSANNA K 995.3 Certain Adverse Effects Not Elsewhere Classified, Allergy, Unspecified 08/03/2009 JAKOB DDS, AUSTIN Cisneros 995.3 Certain Adverse Effects Not Elsewhere Classified, Allergy, Unspecified 08/03/2009 NELSON DO, ROSANNA K 995.3 Certain Adverse Effects Not Elsewhere Classified, Allergy, Unspecified 08/03/2009 NELSON DO, ROSANNA K 995.3 Certain Adverse Effects Not Elsewhere Classified, Allergy, Unspecified 08/03/2009 NELSON DO, ROSANNA K 995.3 Certain Adverse Effects Not Elsewhere Classified, Allergy, Unspecified 08/03/2009 PACHECO WAGNER APRN A 995.3 Certain Adverse Effects Not Elsewhere Classified, Allergy, Unspecified 08/03/2009 NELSON DO, ROSANNA K 995.3 Certain Adverse Effects Not Elsewhere Classified, Allergy, Unspecified 08/03/2009 ONIEL HARRIS APRN 995.3 Certain Adverse Effects Not Elsewhere Classified, Allergy, Unspecified 09/21/2009 NELSON DO, ROSANNA K 388.70 Otalgia, Unspecified 09/21/2009 NELSON DO, ROSANNA K 599.0 Urinary Tract Infection, Site Not Specified 09/21/2009 NELSON DO, ROSANNA K 724.3 Sciatica 09/21/2009 NELSON DO, ROSANNA K 388.70 Otalgia, Unspecified 09/21/2009 NELSON DO, ROSANNA K 599.0 Urinary Tract Infection, Site Not Specified 09/21/2009 NELSON DO, ROSANNA K 724.3 Sciatica 09/21/2009 388.70 Otalgia, Unspecified 09/21/2009 599.0 Urinary Tract Infection, Site Not Specified 09/21/2009 724.3 Sciatica 09/21/2009 388.70 Otalgia, Unspecified 09/21/2009 599.0 Urinary Tract Infection, Site Not Specified 09/21/2009 724.3 Sciatica 09/21/2009 NASRA RUVALCABA MD 388.70 Otalgia, Unspecified 09/21/2009 NASRA RUVALCABA MD 599.0 Urinary Tract Infection, Site Not Specified 09/21/2009 NASRA RUVALCABA MD 724.3 Sciatica 09/21/2009 NELSON DO, ROSANNA K 388.70 Otalgia, Unspecified 09/21/2009 NELSON DO, ROSANNA K 599.0 Urinary Tract Infection, Site Not Specified 09/21/2009 NELSON DO, ROSANNA K 724.3 Sciatica 09/21/2009 BARTOLOME BILLY MD 388.70 Otalgia, Unspecified 09/21/2009 BARTOLOME BILLY MD 599.0 Urinary Tract Infection, Site Not Specified 09/21/2009 BARTOLOME BILLY MD 724.3 Sciatica 09/21/2009 388.70 Otalgia, Unspecified 09/21/2009 599.0 Urinary Tract Infection, Site Not Specified 09/21/2009 724.3 Sciatica 09/21/2009 NELSON DOSAGEA K 388.70 Otalgia, Unspecified 09/21/2009 NELSON DO, ROSANNA K 599.0 Urinary Tract Infection, Site Not Specified 09/21/2009 NELSON DO, ROSANNA K 724.3 Sciatica 09/21/2009 388.70 Otalgia, Unspecified 09/21/2009 599.0 Urinary Tract Infection, Site Not Specified 09/21/2009 724.3 Sciatica 09/21/2009 388.70 Otalgia, Unspecified 09/21/2009 599.0 Urinary Tract Infection, Site Not Specified 09/21/2009 724.3 Sciatica 09/21/2009 388.70 Otalgia, Unspecified 09/21/2009 599.0 Urinary Tract Infection, Site Not Specified 09/21/2009 724.3 Sciatica 09/21/2009 388.70 Otalgia, Unspecified 09/21/2009 599.0 Urinary Tract Infection, Site Not Specified 09/21/2009 724.3 Sciatica 09/21/2009 388.70 Otalgia, Unspecified 09/21/2009 599.0 Urinary Tract Infection, Site Not Specified 09/21/2009 724.3 Sciatica 09/21/2009 388.70 Otalgia, Unspecified 09/21/2009 599.0 Urinary Tract Infection, Site Not Specified 09/21/2009 724.3 Sciatica 09/21/2009 WILY RAMIREZ MD 388.70 Otalgia, Unspecified 09/21/2009 WILY RAMIREZ MD 599.0 Urinary Tract Infection, Site Not Specified 09/21/2009 WILY RAMIREZ MD 724.3 Sciatica 09/21/2009 PACHECO WAGNER APRN 388.70 Otalgia, Unspecified 09/21/2009 PACHECO WAGNER APRN 599.0 Urinary Tract Infection, Site Not Specified 09/21/2009 PACHECO WAGNER APRN 724.3 Sciatica 09/21/2009 NELSON DOROSANNA K 388.70 Otalgia, Unspecified 09/21/2009 NELSON DO, ROSANNA K 599.0 Urinary Tract Infection, Site Not Specified 09/21/2009 NELSON DO, ROSANNA K 724.3 Sciatica 09/21/2009 WILY RAMIREZ MD 388.70 Otalgia, Unspecified 09/21/2009 JAMES ESCOBAR, WILY 599.0 Urinary Tract Infection, Site Not Specified 09/21/2009 JAMES ESCOBAR, WILY 724.3 Sciatica 09/21/2009 BERNARD CONDUCTOR AND ENGINEER, PACHECO A 388.70 Otalgia, Unspecified 09/21/2009 BERNARD CONDUCTOR AND ENGINEER, PACHECO A 599.0 Urinary Tract Infection, Site Not Specified 09/21/2009 BERNARD CONDUCTOR AND ENGINEER, PACHECO A 724.3 Sciatica 09/21/2009 CLIFTON CONDUCTOR AND ENGINEER, RAFA R 388.70 Otalgia, Unspecified 09/21/2009 CLIFTON CONDUCTOR AND ENGINEER, RAFA R 599.0 Urinary Tract Infection, Site Not Specified 09/21/2009 CLIFTON CONDUCTOR AND ENGINEER, RAFA R 724.3 Sciatica 09/21/2009 NELSON DO, ROSANNA K 388.70 Otalgia, Unspecified 09/21/2009 NELSON DO, ROSANNA K 599.0 Urinary Tract Infection, Site Not Specified 09/21/2009 NELSON DO, ROSANNA K 724.3 Sciatica 09/21/2009 MADL CONDUCTOR AND ENGINEER, SIMA L 388.70 Otalgia, Unspecified 09/21/2009 MADL CONDUCTOR AND ENGINEER, SIMA L 599.0 Urinary Tract Infection, Site Not Specified 09/21/2009 MADL CONDUCTOR AND ENGINEER, SIMA L 724.3 Sciatica 09/21/2009 NELSON DO, ROSANNA K 388.70 Otalgia, Unspecified 09/21/2009 NELSON DO, ROSANNA K 599.0 Urinary Tract Infection, Site Not Specified 09/21/2009 NELSON DO, ROSANNA K 724.3 Sciatica 09/21/2009 NELSON DO, ROSANNA K 388.70 Otalgia, Unspecified 09/21/2009 NELSON DO, ROSANNA K 599.0 Urinary Tract Infection, Site Not Specified 09/21/2009 NELSON DO, ROSANNA K 724.3 Sciatica 09/21/2009 NELSON DO, ROSANNA K 388.70 Otalgia, Unspecified 09/21/2009 NELSON DO, ROSANNA K 599.0 Urinary Tract Infection, Site Not Specified 09/21/2009 NELSON DO, ROSANNA K 724.3 Sciatica 09/21/2009 BERNARD CONDUCTOR AND ENGINEER, PACHECO A 388.70 Otalgia, Unspecified 09/21/2009 BERNARD CONDUCTOR AND ENGINEER, PACHECO A 599.0 Urinary Tract Infection, Site Not Specified 09/21/2009 BERNARD CONDUCTOR AND ENGINEER, PACHECO A 724.3 Sciatica 09/21/2009 NELSON DO, ROSANNA K 388.70 Otalgia, Unspecified 09/21/2009 NELSON DO, ROSANNA K 599.0 Urinary Tract Infection, Site Not Specified 09/21/2009 NELSON DO, ROSANNA K 724.3 Sciatica 09/21/2009 WHITE DDS, AUSTIN D 388.70 Otalgia, Unspecified 09/21/2009 WHITE DDS, AUSTIN D 599.0 Urinary Tract Infection, Site Not Specified 09/21/2009 WHITE DDS, AUSTIN D 724.3 Sciatica 09/21/2009 NELSON DO, ROSANNA K 388.70 Otalgia, Unspecified 09/21/2009 NELSON DO, ROSANNA K 599.0 Urinary Tract Infection, Site Not Specified 09/21/2009 NELSON DO, ROSANNA K 724.3 Sciatica 09/21/2009 NELSON DO, ROSANNA K 388.70 Otalgia, Unspecified 09/21/2009 NELSON DO, ROSANNA K 599.0 Urinary Tract Infection, Site Not Specified 09/21/2009 NELSON DO, ROSANNA K 724.3 Sciatica 09/21/2009 NELSON DO, ROSANNA K 388.70 Otalgia, Unspecified 09/21/2009 NELSON DO, ROSANNA K 599.0 Urinary Tract Infection, Site Not Specified 09/21/2009 NELSON DO, ROSANNA K 724.3 Sciatica 09/21/2009 BERNARD CONDUCTOR AND ENGINEER, PACHECO A 388.70 Otalgia, Unspecified 09/21/2009 BERNARD CONDUCTOR AND ENGINEER, PACHECO A 599.0 Urinary Tract Infection, Site Not Specified 09/21/2009 BERNARD CONDUCTOR AND ENGINEER, PACHECO A 724.3 Sciatica 09/21/2009 NELSON DO, ROSANNA K 388.70 Otalgia, Unspecified 09/21/2009 NELSON DO, ROSANNA K 599.0 Urinary Tract Infection, Site Not Specified 09/21/2009 NELSON DO ROSANNA K 724.3 Sciatica 09/21/2009 KIMBERLEY HARRIS APRNRICIA R 388.70 Otalgia, Unspecified 09/21/2009 KIMBERLEY HARRIS APRNRICIA R 599.0 Urinary Tract Infection, Site Not Specified 09/21/2009 KIMBERLEY HARRIS APRNRICIA R 724.3 Sciatica 10/26/2009 LESLIE JOHNSTON ROSANNA K 796.2 ELEVATED BLOOD PRESSURE READING WITHOUT DIAGNOSIS OF HYPERTENSION 10/26/2009 NELSON DO ROSANNA K 796.2 ELEVATED BLOOD PRESSURE READING WITHOUT DIAGNOSIS OF HYPERTENSION 10/26/2009 796.2 ELEVATED BLOOD PRESSURE READING WITHOUT DIAGNOSIS OF HYPERTENSION 10/26/2009 796.2 ELEVATED BLOOD PRESSURE READING WITHOUT DIAGNOSIS OF HYPERTENSION 10/26/2009 NASRA RUVALCABA MD 796.2 ELEVATED BLOOD PRESSURE READING WITHOUT DIAGNOSIS OF HYPERTENSION 10/26/2009 NELSON DO ROSANNA K 796.2 ELEVATED BLOOD PRESSURE READING WITHOUT DIAGNOSIS OF HYPERTENSION 10/26/2009 NGOC COREAS MD, BARTOLOME A 796.2 ELEVATED BLOOD PRESSURE READING WITHOUT DIAGNOSIS OF HYPERTENSION 10/26/2009 796.2 ELEVATED BLOOD PRESSURE READING WITHOUT DIAGNOSIS OF HYPERTENSION 10/26/2009 NELSON DO ROSANNA K 796.2 ELEVATED BLOOD PRESSURE READING WITHOUT DIAGNOSIS OF HYPERTENSION 10/26/2009 796.2 ELEVATED BLOOD PRESSURE READING WITHOUT DIAGNOSIS OF HYPERTENSION 10/26/2009 796.2 ELEVATED BLOOD PRESSURE READING WITHOUT DIAGNOSIS OF HYPERTENSION 10/26/2009 796.2 ELEVATED BLOOD PRESSURE READING WITHOUT DIAGNOSIS OF HYPERTENSION 10/26/2009 796.2 ELEVATED BLOOD PRESSURE READING WITHOUT DIAGNOSIS OF HYPERTENSION 10/26/2009 796.2 ELEVATED BLOOD PRESSURE READING WITHOUT DIAGNOSIS OF HYPERTENSION 10/26/2009 796.2 ELEVATED BLOOD PRESSURE READING WITHOUT DIAGNOSIS OF HYPERTENSION 10/26/2009 WILY RAMIREZ MD 796.2 ELEVATED BLOOD PRESSURE READING WITHOUT DIAGNOSIS OF HYPERTENSION 10/26/2009 PACHECO WAGNER APRN A 796.2 ELEVATED BLOOD PRESSURE READING WITHOUT DIAGNOSIS OF HYPERTENSION 10/26/2009 SAGE NELSON DOA K 796.2 ELEVATED BLOOD PRESSURE READING WITHOUT DIAGNOSIS OF HYPERTENSION 10/26/2009 WILY RAMIREZ MD 796.2 ELEVATED BLOOD PRESSURE READING WITHOUT DIAGNOSIS OF HYPERTENSION 10/26/2009 PACHECO WAGNER APRN A 796.2 ELEVATED BLOOD PRESSURE READING WITHOUT DIAGNOSIS OF HYPERTENSION 10/26/2009 CLIFTON CORRIGAN RAFA R 796.2 ELEVATED BLOOD PRESSURE READING WITHOUT DIAGNOSIS OF HYPERTENSION 10/26/2009 NELSON DO, ROSANNA K 796.2 ELEVATED BLOOD PRESSURE READING WITHOUT DIAGNOSIS OF HYPERTENSION 10/26/2009 VIKFinn ANDREWSNSIMA L 796.2 ELEVATED BLOOD PRESSURE READING WITHOUT DIAGNOSIS OF HYPERTENSION 10/26/2009 NELSON DO, ROSANNA K 796.2 ELEVATED BLOOD PRESSURE READING WITHOUT DIAGNOSIS OF HYPERTENSION 10/26/2009 NELSON DO, ROSANNA K 796.2 ELEVATED BLOOD PRESSURE READING WITHOUT DIAGNOSIS OF HYPERTENSION 10/26/2009 NELSON DO, ROSANNA K 796.2 ELEVATED BLOOD PRESSURE READING WITHOUT DIAGNOSIS OF HYPERTENSION 10/26/2009 BERNARD CORRIGAN PACHECO A 796.2 ELEVATED BLOOD PRESSURE READING WITHOUT DIAGNOSIS OF HYPERTENSION 10/26/2009 NELSON DO, ROSANNA K 796.2 ELEVATED BLOOD PRESSURE READING WITHOUT DIAGNOSIS OF HYPERTENSION 10/26/2009 WHITE DDS, AUSTIN D 796.2 ELEVATED BLOOD PRESSURE READING WITHOUT DIAGNOSIS OF HYPERTENSION 10/26/2009 NELSON DO, ROSANNA K 796.2 ELEVATED BLOOD PRESSURE READING WITHOUT DIAGNOSIS OF HYPERTENSION 10/26/2009 NELSON DO, ROSANNA K 796.2 ELEVATED BLOOD PRESSURE READING WITHOUT DIAGNOSIS OF HYPERTENSION 10/26/2009 NELSON DO, ROSANNA K 796.2 ELEVATED BLOOD PRESSURE READING WITHOUT DIAGNOSIS OF HYPERTENSION 10/26/2009 BERNARD CORRIGAN PACHECO A 796.2 ELEVATED BLOOD PRESSURE READING WITHOUT DIAGNOSIS OF HYPERTENSION 10/26/2009 NELSON DO, ROSANNA K 796.2 ELEVATED BLOOD PRESSURE READING WITHOUT DIAGNOSIS OF HYPERTENSION 10/26/2009 ONIEL HARRIS APRN R 796.2 ELEVATED BLOOD PRESSURE READING WITHOUT DIAGNOSIS OF HYPERTENSION 10/28/2009 NELSON DO, ROSANNA K V76.10 BREAST SCREENING, UNSPECIFIED 10/28/2009 NELSON DO, ROSANNA K V76.10 BREAST SCREENING, UNSPECIFIED 10/28/2009 V76.10 BREAST SCREENING, UNSPECIFIED 10/28/2009 V76.10 BREAST SCREENING, UNSPECIFIED 10/28/2009 JORDON ESCOBAR, NASRA V76.10 BREAST SCREENING, UNSPECIFIED 10/28/2009 NELSON DO, ROSANNA K V76.10 BREAST SCREENING, UNSPECIFIED 10/28/2009 NGOC COREAS MD, BARTOLOME Willis V76.10 BREAST SCREENING, UNSPECIFIED 10/28/2009 V76.10 BREAST SCREENING, UNSPECIFIED 10/28/2009 NELSON DO, ROSANNA K V76.10 BREAST SCREENING, UNSPECIFIED 10/28/2009 V76.10 BREAST SCREENING, UNSPECIFIED 10/28/2009 V76.10 BREAST SCREENING, UNSPECIFIED 10/28/2009 V76.10 BREAST SCREENING, UNSPECIFIED 10/28/2009 V76.10 BREAST SCREENING, UNSPECIFIED 10/28/2009 V76.10 BREAST SCREENING, UNSPECIFIED 10/28/2009 V76.10 BREAST SCREENING, UNSPECIFIED 10/28/2009 JAMES ESCOBAR, WILY V76.10 BREAST SCREENING, UNSPECIFIED 10/28/2009 BERNARD CORRIGAN PACHECO A V76.10 BREAST SCREENING, UNSPECIFIED 10/28/2009 NELSON DO, ROSANNA K V76.10 BREAST SCREENING, UNSPECIFIED 10/28/2009 JAMES ESCOBAR, WILY V76.10 BREAST SCREENING, UNSPECIFIED 10/28/2009 BERNARD CORRIGAN PACHECO A V76.10 BREAST SCREENING, UNSPECIFIED 10/28/2009 RAFA LAZO APRN V76.10 BREAST SCREENING, UNSPECIFIED 10/28/2009 NELSON DO, ROSANNA K V76.10 BREAST SCREENING, UNSPECIFIED 10/28/2009 CARROLL CONDUCTOR AND ENGINEERASMITA MillerA L V76.10 BREAST SCREENING, UNSPECIFIED 10/28/2009 NELSON DO, ROSANNA K V76.10 BREAST SCREENING, UNSPECIFIED 10/28/2009 NELSON DO, ROSANNA K V76.10 BREAST SCREENING, UNSPECIFIED 10/28/2009 NELSON DO, ROSANNA K V76.10 BREAST SCREENING, UNSPECIFIED 10/28/2009 BERNARD CORRIGAN, PACHECO A V76.10 BREAST SCREENING, UNSPECIFIED 10/28/2009 NELSON DO, ROSANNA K V76.10 BREAST SCREENING, UNSPECIFIED 10/28/2009 JAKOB PARDOS, AUSTIN Cisneros V76.10 BREAST SCREENING, UNSPECIFIED 10/28/2009 NELSON DO, ROSANNA K V76.10 BREAST SCREENING, UNSPECIFIED 10/28/2009 NELSON DO, ROSANNA K V76.10 BREAST SCREENING, UNSPECIFIED 10/28/2009 NELSON DO, ROSANNA K V76.10 BREAST SCREENING, UNSPECIFIED 10/28/2009 BERNARD CORRIGAN PACHECO A V76.10 BREAST SCREENING, UNSPECIFIED 10/28/2009 NELSON DO, ROSANNA K V76.10 BREAST SCREENING, UNSPECIFIED 10/28/2009 ONIEL HARRIS APRN V76.10 BREAST SCREENING, UNSPECIFIED 12/16/2009 NELSON DO, ROSANNA K 461.9 Sinusitis Acute 12/16/2009 NELSON DO, ROSANNA K 786.2 Cough 12/16/2009 NELSON DO, ROSANNA K 787.01 Nausea With Vomiting 12/16/2009 NELSON DO, ROSANNA K 461.9 Sinusitis Acute 12/16/2009 NELSON DO, ROSANNA K 786.2 Cough 12/16/2009 NELSON DO, ROSANNA K 787.01 Nausea With Vomiting 12/16/2009 461.9 Sinusitis Acute 12/16/2009 786.2 Cough 12/16/2009 787.01 Nausea With Vomiting 12/16/2009 461.9 Sinusitis Acute 12/16/2009 786.2 Cough 12/16/2009 787.01 Nausea With Vomiting 12/16/2009 NASRA RUVALCABA MD 461.9 Sinusitis Acute 12/16/2009 NASRA RUVALCABA MD 786.2 Cough 12/16/2009 NASRA RUVALCABA MD 787.01 Nausea With Vomiting 12/16/2009 NELSON DO, ROSANNA K 461.9 Sinusitis Acute 12/16/2009 NELSON DO, ROSANNA K 786.2 Cough 12/16/2009 NELSON DO, ROSANNA K 787.01 Nausea With Vomiting 12/16/2009 NGOC COREAS MD, BARTOLOME Willis 461.9 Sinusitis Acute 12/16/2009 NGOC COREAS MD, BARTOLOME A 786.2 Cough 12/16/2009 NGOC COREAS MD, BARTOLOME A 787.01 Nausea With Vomiting 12/16/2009 461.9 Sinusitis Acute 12/16/2009 786.2 Cough 12/16/2009 787.01 Nausea With Vomiting 12/16/2009 NELSON DO, ROSANNA K 461.9 Sinusitis Acute 12/16/2009 NELSON DO, ROSANNA K 786.2 Cough 12/16/2009 NELSON DO, ROSANNA K 787.01 Nausea With Vomiting 12/16/2009 461.9 Sinusitis Acute 12/16/2009 786.2 Cough 12/16/2009 787.01 Nausea With Vomiting 12/16/2009 461.9 Sinusitis Acute 12/16/2009 786.2 Cough 12/16/2009 787.01 Nausea With Vomiting 12/16/2009 461.9 Sinusitis Acute 12/16/2009 786.2 Cough 12/16/2009 787.01 Nausea With Vomiting 12/16/2009 461.9 Sinusitis Acute 12/16/2009 786.2 Cough 12/16/2009 787.01 Nausea With Vomiting 12/16/2009 461.9 Sinusitis Acute 12/16/2009 786.2 Cough 12/16/2009 787.01 Nausea With Vomiting 12/16/2009 461.9 Sinusitis Acute 12/16/2009 786.2 Cough 12/16/2009 787.01 Nausea With Vomiting 12/16/2009 JAMES ESCOBAR, WILY 461.9 Sinusitis Acute 12/16/2009 JAMES ESCOBAR, WILY 786.2 Cough 12/16/2009 WILY RAMIREZ MD 787.01 Nausea With Vomiting 12/16/2009 BERNARD CORRIGAN PACHECO A 461.9 Sinusitis Acute 12/16/2009 BERNARD CORRIGAN PACHECO A 786.2 Cough 12/16/2009 BERNARDAngela CORRIGAN PACHECO A 787.01 Nausea With Vomiting 12/16/2009 NELSON DO ROSANNA K 461.9 Sinusitis Acute 12/16/2009 NELSON DO ROSANNA K 786.2 Cough 12/16/2009 NELSON DO ROSANNA K 787.01 Nausea With Vomiting 12/16/2009 WILY RAMIREZ MD 461.9 Sinusitis Acute 12/16/2009 WILY RAMIREZ MD 786.2 Cough 12/16/2009 WILY RAMIREZ MD 787.01 Nausea With Vomiting 12/16/2009 BERNARDAngela CORRIGAN PACHECO A 461.9 Sinusitis Acute 12/16/2009 BERNARDAngela CORRIGAN PACHECO A 786.2 Cough 12/16/2009 BERNARD APRN, PACHECO A 787.01 Nausea With Vomiting 12/16/2009 CLIFTON CONDUCTOR AND ENGINEER, RAFA R 461.9 Sinusitis Acute 12/16/2009 CLIFTON CONDUCTOR AND ENGINEER, RAFA R 786.2 Cough 12/16/2009 CLIFTON CONDUCTOR AND ENGINEER, RAFA R 787.01 Nausea With Vomiting 12/16/2009 NELSON DO, ROSANNA K 461.9 Sinusitis Acute 12/16/2009 NELSON DO ROSANNA K 786.2 Cough 12/16/2009 NELSON DO, ROSANNA K 787.01 Nausea With Vomiting 12/16/2009 MADL CONDUCTOR AND ENGINEER, SIMA L 461.9 Sinusitis Acute 12/16/2009 MADL CONDUCTOR AND ENGINEER, SIMA L 786.2 Cough 12/16/2009 MADL CONDUCTOR AND ENGINEER, SIMA L 787.01 Nausea With Vomiting 12/16/2009 NELSON DO, ROSANNA K 461.9 Sinusitis Acute 12/16/2009 NELSON DO, ROSANNA K 786.2 Cough 12/16/2009 NELSON DO, ROSANNA K 787.01 Nausea With Vomiting 12/16/2009 NELSON DO, ROSANNA K 461.9 Sinusitis Acute 12/16/2009 NELSON DO, ROSANNA K 786.2 Cough 12/16/2009 NELSON DO, ROSANNA K 787.01 Nausea With Vomiting 12/16/2009 NELSON DO, ROSANNA K 461.9 Sinusitis Acute 12/16/2009 NELSON DO, ROSANNA K 786.2 Cough 12/16/2009 NELSON DO, ROSANNA K 787.01 Nausea With Vomiting 12/16/2009 BERNARD CONDUCTOR AND ENGINEER, PACHECO A 461.9 Sinusitis Acute 12/16/2009 BERNARD CONDUCTOR AND ENGINEER, PACHECO A 786.2 Cough 12/16/2009 BERNARD CONDUCTOR AND ENGINEER, PACHECO A 787.01 Nausea With Vomiting 12/16/2009 NELSON DO, ROSANNA K 461.9 Sinusitis Acute 12/16/2009 NELSON DO, ROSANNA K 786.2 Cough 12/16/2009 NELSON DO, ROSANNA K 787.01 Nausea With Vomiting 12/16/2009 WHITE DDS, AUSTIN D 461.9 Sinusitis Acute 12/16/2009 WHITE DDS, AUSTIN D 786.2 Cough 12/16/2009 WHITE DDS, AUSTIN D 787.01 Nausea With Vomiting 12/16/2009 NELSON DO, ROSANNA K 461.9 Sinusitis Acute 12/16/2009 NELSON DO, ROSANNA K 786.2 Cough 12/16/2009 NELSON DO, ROSANNA K 787.01 Nausea With Vomiting 12/16/2009 NELSON DO, ROSANNA K 461.9 Sinusitis Acute 12/16/2009 NELSON DO, ROSANNA K 786.2 Cough 12/16/2009 NELSON DO, ROSANNA K 787.01 Nausea With Vomiting 12/16/2009 NELSON DO, ROSANNA K 461.9 Sinusitis Acute 12/16/2009 NELSON DO, ROSANNA K 786.2 Cough 12/16/2009 NELSON DO, ROSANNA K 787.01 Nausea With Vomiting 12/16/2009 BERNARD CONDUCTOR AND ENGINEER, PACHECO A 461.9 Sinusitis Acute 12/16/2009 BERNARD CONDUCTOR AND ENGINEER, PACHECO A 786.2 Cough 12/16/2009 BERNARD CONDUCTOR AND ENGINEER, PACHECO A 787.01 Nausea With Vomiting 12/16/2009 NELSON DO, ROSANNA K 461.9 Sinusitis Acute 12/16/2009 NELSON DO, ROSANNA K 786.2 Cough 12/16/2009 NELSON DO, ROSANNA K 787.01 Nausea With Vomiting 12/16/2009 HARRIS CONDUCTOR AND ENGINEER, ONIEL R 461.9 Sinusitis Acute 12/16/2009 HARRIS CONDUCTOR AND ENGINEER, ONIEL R 786.2 Cough 12/16/2009 HARRIS CONDUCTOR AND ENGINEER, ONIEL R 787.01 Nausea With Vomiting 12/21/2009 Ot 386.30 12/21/2009 Ot 780.4 12/31/2009 NELSON DO, ROSANNA K 528.00 Stomatitis And Mucositis, Unspecified 12/31/2009 NELSON DO, ROSANNA K 528.00 Stomatitis And Mucositis, Unspecified 12/31/2009 528.00 Stomatitis And Mucositis, Unspecified 12/31/2009 528.00 Stomatitis And Mucositis, Unspecified 12/31/2009 JORDON ESCOBAR, NASRA 528.00 Stomatitis And Mucositis, Unspecified 12/31/2009 NELSON DO ROSANNA K 528.00 Stomatitis And Mucositis, Unspecified 12/31/2009 NGOC COREAS MD, BARTOLOME A 528.00 Stomatitis And Mucositis, Unspecified 12/31/2009 528.00 Stomatitis And Mucositis, Unspecified 12/31/2009 NELSON DO ROSANNA K 528.00 Stomatitis And Mucositis, Unspecified 12/31/2009 528.00 Stomatitis And Mucositis, Unspecified 12/31/2009 528.00 Stomatitis And Mucositis, Unspecified 12/31/2009 528.00 Stomatitis And Mucositis, Unspecified 12/31/2009 528.00 Stomatitis And Mucositis, Unspecified 12/31/2009 528.00 Stomatitis And Mucositis, Unspecified 12/31/2009 528.00 Stomatitis And Mucositis, Unspecified 12/31/2009 JAMES ESCOBAR, WILY 528.00 Stomatitis And Mucositis, Unspecified 12/31/2009 BERNARDMIGUEL ANDREWSN, PACHECO A 528.00 Stomatitis And Mucositis, Unspecified 12/31/2009 NELSON DO, ROSANNA K 528.00 Stomatitis And Mucositis, Unspecified 12/31/2009 JAMES ESCOBAR, WILY 528.00 Stomatitis And Mucositis, Unspecified 12/31/2009 BERNARD ANDREWSN, PACHECO A 528.00 Stomatitis And Mucositis, Unspecified 12/31/2009 RAFA LAZO APRN R 528.00 Stomatitis And Mucositis, Unspecified 12/31/2009 NELSON DO, ROSANNA K 528.00 Stomatitis And Mucositis, Unspecified 12/31/2009 CARROLL CORRIGAN, SIMA Briseno 528.00 Stomatitis And Mucositis, Unspecified 12/31/2009 NELSON DO, ROSANNA K 528.00 Stomatitis And Mucositis, Unspecified 12/31/2009 NELSON DO, ROSANNA K 528.00 Stomatitis And Mucositis, Unspecified 12/31/2009 NELSON DO, ROSANNA K 528.00 Stomatitis And Mucositis, Unspecified 12/31/2009 BERNARD ANDREWSN, PACHECO A 528.00 Stomatitis And Mucositis, Unspecified 12/31/2009 NELSON DO, ROSANNA K 528.00 Stomatitis And Mucositis, Unspecified 12/31/2009 WHITE DDS, AUSTIN Cisneros 528.00 Stomatitis And Mucositis, Unspecified 12/31/2009 NELSON DO, ROSANNA K 528.00 Stomatitis And Mucositis, Unspecified 12/31/2009 NELSON DO, ROSANNA K 528.00 Stomatitis And Mucositis, Unspecified 12/31/2009 NELSON DO, ROSANNA K 528.00 Stomatitis And Mucositis, Unspecified 12/31/2009 BERNARD ANDREWSN, PACHECO A 528.00 Stomatitis And Mucositis, Unspecified 12/31/2009 NELSON DO, ROSANNA K 528.00 Stomatitis And Mucositis, Unspecified 12/31/2009 ONIEL HARRIS APRN 528.00 Stomatitis And Mucositis, Unspecified 03/13/2010 NELSON DO, ROSANNA K 465.9 Upper Respiratory Infection 03/13/2010 NELSON DO, ROSANNA K 465.9 Upper Respiratory Infection 03/13/2010 465.9 Upper Respiratory Infection 03/13/2010 465.9 Upper Respiratory Infection 03/13/2010 NASRA RUVALCABA MD 465.9 Upper Respiratory Infection 03/13/2010 NELSON DO, ROSANNA K 465.9 Upper Respiratory Infection 03/13/2010 NGOC COREAS MD, BARTOLOME A 465.9 Upper Respiratory Infection 03/13/2010 465.9 Upper Respiratory Infection 03/13/2010 NELSON DO, ROSANNA K 465.9 Upper Respiratory Infection 03/13/2010 465.9 Upper Respiratory Infection 03/13/2010 465.9 Upper Respiratory Infection 03/13/2010 465.9 Upper Respiratory Infection 03/13/2010 465.9 Upper Respiratory Infection 03/13/2010 465.9 Upper Respiratory Infection 03/13/2010 465.9 Upper Respiratory Infection 03/13/2010 WILY RAMIREZ MD 465.9 Upper Respiratory Infection 03/13/2010 BERNARD CORRIGAN PACHECO A 465.9 Upper Respiratory Infection 03/13/2010 NELSON DO, ROSANNA K 465.9 Upper Respiratory Infection 03/13/2010 WILY RAMIREZ MD 465.9 Upper Respiratory Infection 03/13/2010 BERNARD CORRIGAN PACHECO A 465.9 Upper Respiratory Infection 03/13/2010 RAFA LAZO APRN 465.9 Upper Respiratory Infection 03/13/2010 NELSON DO, ROSANNA K 465.9 Upper Respiratory Infection 03/13/2010 SIMA HODGES APRN L 465.9 Upper Respiratory Infection 03/13/2010 NELSON DO, ROSANNA K 465.9 Upper Respiratory Infection 03/13/2010 NELSON DO, ROSANNA K 465.9 Upper Respiratory Infection 03/13/2010 NELSON DO, ROSANNA K 465.9 Upper Respiratory Infection 03/13/2010 BERNARD ANDREWSN, PACHECO A 465.9 Upper Respiratory Infection 03/13/2010 NELSON DO, ROSANNA K 465.9 Upper Respiratory Infection 03/13/2010 AUSTIN ROBERT DDS 465.9 Upper Respiratory Infection 03/13/2010 NELSON DO, ROSANNA K 465.9 Upper Respiratory Infection 03/13/2010 NELSON DO, ROSANNA K 465.9 Upper Respiratory Infection 03/13/2010 NELSON DO, ROSANNA K 465.9 Upper Respiratory Infection 03/13/2010 PACHECO WAGNER APRN A 465.9 Upper Respiratory Infection 03/13/2010 ROSANNA NELSON DO 465.9 Upper Respiratory Infection 03/13/2010 ONIEL HARRIS APRN 465.9 Upper Respiratory Infection 05/25/2010 ROSANNA NELSON DO K 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 DYSFUNCTION 05/25/2010 ROSANNA NELSON DO 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 DYSFUNCTION 05/25/2010 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 DYSFUNCTION 05/25/2010 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 DYSFUNCTION 05/25/2010 JORDON ESCOBAR, NASRA 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 DYSFUNCTION 05/25/2010 ROSANNA NELSON DO 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 DYSFUNCTION 05/25/2010 NGOC COREAS MD, BARTOLOME A 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 DYSFUNCTION 05/25/2010 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 DYSFUNCTION 05/25/2010 ROSANNA NELSON DO 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 DYSFUNCTION 05/25/2010 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 DYSFUNCTION 05/25/2010 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 DYSFUNCTION 05/25/2010 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 DYSFUNCTION 05/25/2010 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 DYSFUNCTION 05/25/2010 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 DYSFUNCTION 05/25/2010 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 DYSFUNCTION 05/25/2010 WILY RAMIREZ MD 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 DYSFUNCTION 05/25/2010 PACHECO WAGNER APRN A 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 DYSFUNCTION 05/25/2010 ROSANNA NELSON DO 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 DYSFUNCTION 05/25/2010 WILY RAMIREZ MD 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 DYSFUNCTION 05/25/2010 PACHECO WAGNER APRN A 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 DYSFUNCTION 05/25/2010 RAFA LAZO APRN 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 DYSFUNCTION 05/25/2010 ROSANNA NELSON DO K 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 DYSFUNCTION 05/25/2010 SIMA HODGES APRN 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 DYSFUNCTION 05/25/2010 ROSANNA NELSON DO 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 DYSFUNCTION 05/25/2010 NELSON DO, ROSANNA K 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 DYSFUNCTION 05/25/2010 NELSON DO, ROSANNA K 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 DYSFUNCTION 05/25/2010 PACHECO WAGNER APRN A 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 DYSFUNCTION 05/25/2010 NELSON DO, ROSANNA K 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 DYSFUNCTION 05/25/2010 JAKOB DDS, AUSTIN Cisneros 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 DYSFUNCTION 05/25/2010 NELSON DO, ROSANNA K 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 DYSFUNCTION 05/25/2010 NELSON DO, ROSANNA K 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 DYSFUNCTION 05/25/2010 NELSON DO, ROSANNA K 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 DYSFUNCTION 05/25/2010 PACHECO WAGNER APRN A 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 DYSFUNCTION 05/25/2010 NELSON DO, ROSANNA K 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 DYSFUNCTION 05/25/2010 ONIEL HARRIS APRN 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 DYSFUNCTION 08/03/2010 NELSON DO, ORSANNA K 724.2 BACK PAIN, LOWER 08/03/2010 NELSON DO, ROSANNA K 728.85 SPASM OF MUSCLE 08/03/2010 NELSON DO, ROSANNA K 724.2 BACK PAIN, LOWER 08/03/2010 NELSON DO, ROSANNA K 728.85 SPASM OF MUSCLE 08/03/2010 724.2 BACK PAIN, LOWER 08/03/2010 728.85 SPASM OF MUSCLE 08/03/2010 724.2 BACK PAIN, LOWER 08/03/2010 728.85 SPASM OF MUSCLE 08/03/2010 NASRA RUVALCABA MD 724.2 BACK PAIN, LOWER 08/03/2010 NASRA RUVALCABA MD 728.85 SPASM OF MUSCLE 08/03/2010 NELSON DO, ROSANNA K 724.2 BACK PAIN, LOWER 08/03/2010 NELSON DO, ROSANNA K 728.85 SPASM OF MUSCLE 08/03/2010 NGOC COREAS MD, BARTOLOME Willis 724.2 BACK PAIN, LOWER 08/03/2010 BARTOLOME BILLY MD 728.85 SPASM OF MUSCLE 08/03/2010 724.2 BACK PAIN, LOWER 08/03/2010 728.85 SPASM OF MUSCLE 08/03/2010 NELSON DO, ROSANNA K 724.2 BACK PAIN, LOWER 08/03/2010 NELSON DO, ROSANNA K 728.85 SPASM OF MUSCLE 08/03/2010 724.2 BACK PAIN, LOWER 08/03/2010 728.85 Spasm Of Muscle 08/03/2010 724.2 BACK PAIN, LOWER 08/03/2010 728.85 Spasm Of Muscle 08/03/2010 724.2 BACK PAIN, LOWER 08/03/2010 728.85 Spasm Of Muscle 08/03/2010 724.2 BACK PAIN, LOWER 08/03/2010 728.85 Spasm Of Muscle 08/03/2010 724.2 BACK PAIN, LOWER 08/03/2010 728.85 Spasm Of Muscle 08/03/2010 724.2 BACK PAIN, LOWER 08/03/2010 728.85 Spasm Of Muscle 08/03/2010 WILY RAMIREZ MD 724.2 BACK PAIN, LOWER 08/03/2010 WILY RAMIREZ MD 728.85 Spasm Of Muscle 08/03/2010 BERNARD CONDUCTOR AND ENGINEER, PACHECO A 724.2 BACK PAIN, LOWER 08/03/2010 BERNARD CONDUCTOR AND ENGINEER, PACEHCO A 728.85 Spasm Of Muscle 08/03/2010 NELSON DO, ROSANNA K 724.2 BACK PAIN, LOWER 08/03/2010 NELSON DO, ROSANNA K 728.85 Spasm Of Muscle 08/03/2010 WILY RAMIREZ MD 724.2 BACK PAIN, LOWER 08/03/2010 WILY RAMIREZ MD 728.85 Spasm Of Muscle 08/03/2010 BERNARD CONDUCTOR AND ENGINEER, PACHECO A 724.2 BACK PAIN, LOWER 08/03/2010 BERNARD CONDUCTOR AND ENGINEER, PACHECO A 728.85 Spasm Of Muscle 08/03/2010 CLIFTON CONDUCTOR AND ENGINEER, RAFA R 724.2 BACK PAIN, LOWER 08/03/2010 CLIFTON CONDUCTOR AND ENGINEER, RAFA R 728.85 Spasm Of Muscle 08/03/2010 NELSON DO, ROSANNA K 724.2 BACK PAIN, LOWER 08/03/2010 NELSON DO, ROSANNA K 728.85 Spasm Of Muscle 08/03/2010 MADL CONDUCTOR AND ENGINEER, SIMA L 724.2 BACK PAIN, LOWER 08/03/2010 MADL CONDUCTOR AND ENGINEER, SIMA L 728.85 Spasm Of Muscle 08/03/2010 NELSON DO, ROSANNA K 724.2 BACK PAIN, LOWER 08/03/2010 NELSON DO, ROSANNA K 728.85 Spasm Of Muscle 08/03/2010 NELSON DO, ROSANNA K 724.2 BACK PAIN, LOWER 08/03/2010 NELSON DO, ROSANNA K 728.85 Spasm Of Muscle 08/03/2010 NELSON DO, ROSANNA K 724.2 BACK PAIN, LOWER 08/03/2010 NELSON DO, ROSANNA K 728.85 Spasm Of Muscle 08/03/2010 BERNARD CONDUCTOR AND ENGINEER, PACHECO A 724.2 BACK PAIN, LOWER 08/03/2010 BERNARD CONDUCTOR AND ENGINEER, PACHECO A 728.85 Spasm Of Muscle 08/03/2010 NELSON DO, ROSANNA K 724.2 BACK PAIN, LOWER 08/03/2010 NELSON DO, ROSANNA K 728.85 Spasm Of Muscle 08/03/2010 WHITE DDS, AUSTIN D 724.2 BACK PAIN, LOWER 08/03/2010 WHITE DDS, AUSTIN D 728.85 Spasm Of Muscle 08/03/2010 NELSON DO, ROSANNA K 724.2 BACK PAIN, LOWER 08/03/2010 NESLON DO, ROSANNA K 728.85 Spasm Of Muscle 08/03/2010 NELSON DO, ROSANNA K 724.2 BACK PAIN, LOWER 08/03/2010 NELSON DO, ROSANNA K 728.85 Spasm Of Muscle 08/03/2010 NELSON DO, ROSANNA K 724.2 BACK PAIN, LOWER 08/03/2010 NELSON DO, ROSANNA K 728.85 Spasm Of Muscle 08/03/2010 BERNARD CONDUCTOR AND ENGINEER, PACHECO A 724.2 BACK PAIN, LOWER 08/03/2010 BERNARD CONDUCTOR AND ENGINEER, PACHECO A 728.85 Spasm Of Muscle 08/03/2010 NELSON DO, ROSANNA K 724.2 BACK PAIN, LOWER 08/03/2010 NELSON DO, ROSANNA K 728.85 Spasm Of Muscle 08/03/2010 HARRIS CONDUCTOR AND ENGINEER, ONIEL R 724.2 BACK PAIN, LOWER 08/03/2010 HARRIS CONDUCTOR AND ENGINEER, ONIEL R 728.85 Spasm Of Muscle 08/12/2010 NELSON DO, ROSANNA K 386.2 VERTIGO OF CENTRAL ORIGIN 08/12/2010 NELSON DO, ROSANNA K 386.2 VERTIGO OF CENTRAL ORIGIN 08/12/2010 386.2 VERTIGO OF CENTRAL ORIGIN 08/12/2010 386.2 VERTIGO OF CENTRAL ORIGIN 08/12/2010 JORDON ESCOBAR, NASRA 386.2 VERTIGO OF CENTRAL ORIGIN 08/12/2010 NELSON DO, ROSANNA K 386.2 Vertigo Of Central Origin 08/12/2010 NGOC COREAS MD, BARTOLOME A 386.2 Vertigo Of Central Origin 08/12/2010 386.2 Vertigo Of Central Origin 08/12/2010 NELSON DO, ROSANNA K 386.2 Vertigo Of Central Origin 08/12/2010 386.2 Vertigo Of Central Origin 08/12/2010 386.2 Vertigo Of Central Origin 08/12/2010 386.2 Vertigo Of Central Origin 08/12/2010 386.2 Vertigo Of Central Origin 08/12/2010 386.2 [employer] [employer] 08/12/2010 386.2 [facility] [employer] [facility] [employer] 08/12/2010 JAMES ESCOBAR, WILY 386.2 [facility] [employer] 08/12/2010 PACHECO WAGNER APRN A 386.2 [employer] [employer] 08/12/2010 NELSON DO, ROSANNA K 386.2 [facility] [employer] 08/12/2010 WILY RAMIREZ MD 386.2 [facility] [employer] 08/12/2010 PACHECO WAGNER APRN A 386.2 [employer] 08/12/2010 RAFA LAZO APRN 386.2 [facility] [employer] 08/12/2010 NELSON DO, ROSANNA K 386.2 [facility] [employer] 08/12/2010 SIMA HODGES APRN 386.2 [facility] [employer] 08/12/2010 NELSON DO, ROSANNA K 386.2 [employer] [employer] 08/12/2010 NELSON DO, ROSANNA K 386.2 [facility] [employer] 08/12/2010 NELSON DO, ROSANNA K 386.2 [facility] [employer] 08/12/2010 PACHECO WAGNER APRN A 386.2 [facility] [employer] 08/12/2010 NELSON DO, ROSANNA K 386.2 [facility] [employer] 08/12/2010 JAKOB DDS, AUSTIN Cisneros 386.2 [facility] [employer] 08/12/2010 NELSON DO, ROSANNA K 386.2 [facility] [employer] 08/12/2010 NELSON DO, ROSANNA K 386.2 [facility] [employer] 08/12/2010 NELSON DO, ROSANNA K 386.2 [facility] [employer] 08/12/2010 BERNARD CORRIGAN, PACHECO A 386.2 [facility] [employer] 08/12/2010 NELSON DO, ROSANNA K 386.2 [facility] [employer] 08/12/2010 ONIEL HARRIS APRN 386.2 [facility] [employer] 08/26/2010 NELSON DO, ROSANNA K 790.29 OTHER ABNORMAL GLUCOSE 08/26/2010 NELSON DO, ROSANNA K 790.29 OTHER ABNORMAL GLUCOSE 08/26/2010 790.29 OTHER ABNORMAL GLUCOSE 08/26/2010 790.29 OTHER ABNORMAL GLUCOSE 08/26/2010 NASRA RUVALCABA MD 790.29 OTHER ABNORMAL GLUCOSE 08/26/2010 NELSON DO, ROSANNA K 790.29 Other Abnormal Glucose 08/26/2010 NGOC COREAS MD, BARTOLOME A 790.29 Other Abnormal Glucose 08/26/2010 790.29 Other Abnormal Glucose 08/26/2010 NELSON DO, ROSANNA K 790.29 Other Abnormal Glucose 08/26/2010 790.29 Other Abnormal Glucose 08/26/2010 790.29 Other Abnormal Glucose 08/26/2010 790.29 Other Abnormal Glucose 08/26/2010 790.29 Other Abnormal Glucose 08/26/2010 790.29 Other Abnormal Glucose 08/26/2010 790.29 Other Abnormal Glucose 08/26/2010 WILY RAMIREZ MD 790.29 Other Abnormal Glucose 08/26/2010 BERNARDAMIRAH RIVERA APRNIDI A 790.29 Other Abnormal Glucose 08/26/2010 NELSON DO, ROSANNA K 790.29 Other Abnormal Glucose 08/26/2010 WILY RAMIREZ MD 790.29 Other Abnormal Glucose 08/26/2010 BERNARD CORRIGAN PACHECO A 790.29 Other Abnormal Glucose 08/26/2010 RAFA LAZO APRN 790.29 Other Abnormal Glucose 08/26/2010 NELSON DO, ROSANNA K 790.29 Other Abnormal Glucose 08/26/2010 SIMA HODGES APRN 790.29 Other Abnormal Glucose 08/26/2010 NELSON DO, ROSANNA K 790.29 Other Abnormal Glucose 08/26/2010 NELSON DO, ROSANNA K 790.29 Other Abnormal Glucose 08/26/2010 NELSON DO, ROSANNA K 790.29 Other Abnormal Glucose 08/26/2010 BERNARD CONDUCTOR AND ENGINEER, PACHECO A 790.29 Other Abnormal Glucose 08/26/2010 NELSON DO, ROSANNA K 790.29 Other Abnormal Glucose 08/26/2010 WHITE DDAUSTIN Cornelius D 790.29 Other Abnormal Glucose 08/26/2010 NELSON DO, ROSANNA K 790.29 Other Abnormal Glucose 08/26/2010 NELSON DO, ROSANNA K 790.29 Other Abnormal Glucose 08/26/2010 NELSON DO, ROSANNA K 790.29 Other Abnormal Glucose 08/26/2010 BERNARD CONDUCTOR AND ENGINEER, PACHECO A 790.29 Other Abnormal Glucose 08/26/2010 NELSON DO, ROSANNA K 790.29 Other Abnormal Glucose 08/26/2010 HARRIS CYNTHIA CORRIGANIA R 790.29 Other Abnormal Glucose 12/09/2010 NELSON DO, ROSANNA K 780.4 DIZZINESS AND VERTIGO 12/09/2010 NELSON DO, ROSANNA K 780.4 DIZZINESS AND VERTIGO 12/09/2010 780.4 DIZZINESS AND VERTIGO 12/09/2010 780.4 DIZZINESS AND VERTIGO 12/09/2010 NASRA RUVALCABA MD 780.4 DIZZINESS AND VERTIGO 12/09/2010 NELSON DO, ROSANNA K 780.4 Dizziness And Vertigo 12/09/2010 NGOC COREAS MD, BARTOLOME Willis 780.4 Dizziness And Vertigo 12/09/2010 780.4 Dizziness And Vertigo 12/09/2010 NELSON DO, ROSANNA K 780.4 Dizziness And Vertigo 12/09/2010 780.4 Dizziness And Vertigo 12/09/2010 780.4 Dizziness And Vertigo 12/09/2010 780.4 Dizziness And Vertigo 12/09/2010 780.4 Dizziness And Vertigo 12/09/2010 780.4 Dizziness And Vertigo 12/09/2010 780.4 Dizziness And Vertigo 12/09/2010 WILY RAMIREZ MD 780.4 Dizziness And Vertigo 12/09/2010 PACHECO WAGNER APRN A 780.4 Dizziness And Vertigo 12/09/2010 NELSON DO, ROSANNA K 780.4 Dizziness And Vertigo 12/09/2010 WILY RAMIREZ MD 780.4 Dizziness And Vertigo 12/09/2010 BERNARD CONDUCTOR AND ENGINEER, PACHECO A 780.4 Dizziness And Vertigo 12/09/2010 RAFA LAZO APRN R 780.4 Dizziness And Vertigo 12/09/2010 NELSON DO, ROSANNA K 780.4 Dizziness And Vertigo 12/09/2010 CARROLL CORRIGAN SIMA L 780.4 Dizziness And Vertigo 12/09/2010 NELSON DO, ROSANNA K 780.4 Dizziness And Vertigo 12/09/2010 NELSON DO, ROSANNA K 780.4 Dizziness And Vertigo 12/09/2010 NELSON DO, ROSANNA K 780.4 Dizziness And Vertigo 12/09/2010 BERNARD CORRIGAN PACHECO A 780.4 Dizziness And Vertigo 12/09/2010 NELSON DO, ROSANNA K 780.4 Dizziness And Vertigo 12/09/2010 AUSTIN ROBERT DDS 780.4 Dizziness And Vertigo 12/09/2010 NELSON DO, ROSANNA K 780.4 Dizziness And Vertigo 12/09/2010 NELSON DO, ROSANNA K 780.4 Dizziness And Vertigo 12/09/2010 NELSON DO, ROSANNA K 780.4 Dizziness And Vertigo 12/09/2010 BERNARD CORRIGAN PACHECO A 780.4 Dizziness And Vertigo 12/09/2010 NELSON DO, ROSANNA K 780.4 Dizziness And Vertigo 12/09/2010 ONIEL HARRIS APRN 780.4 Dizziness And Vertigo 01/22/2011 ROSANNA NELSON DO 462 ACUTE PHARYNGITIS 01/22/2011 ROSANNA NELSON DO 462 ACUTE PHARYNGITIS 01/22/2011 462 ACUTE PHARYNGITIS 01/22/2011 462 ACUTE PHARYNGITIS 01/22/2011 JORDON ESCOBAR, NASRA 462 ACUTE PHARYNGITIS 01/22/2011 ROSANNA NELSON DO 462 Acute Pharyngitis 01/22/2011 NGOC COREAS MD, BARTOLOME Willis 462 Acute Pharyngitis 01/22/2011 462 Acute Pharyngitis 01/22/2011 ROSANNA NELSON DO 462 Acute Pharyngitis 01/22/2011 462 Acute Pharyngitis 01/22/2011 462 Acute Pharyngitis 01/22/2011 462 Acute Pharyngitis 01/22/2011 462 Acute Pharyngitis 01/22/2011 462 Acute Pharyngitis 01/22/2011 462 Acute Pharyngitis 01/22/2011 WILY RAMIREZ MD 462 Acute Pharyngitis 01/22/2011 BERNARD CORRIGAN PACHECO A 462 Acute Pharyngitis 01/22/2011 NELSON DO, ROSANNA K 462 Acute Pharyngitis 01/22/2011 JAMES ESCOBAR, WILY 462 Acute Pharyngitis 01/22/2011 BERNARD CORRIGAN PACHECO A 462 Acute Pharyngitis 01/22/2011 RAFA LAZO APRN R 462 Acute Pharyngitis 01/22/2011 NELSON DO, ROSANNA K 462 Acute Pharyngitis 01/22/2011 SIMA HODGES APRN 462 Acute Pharyngitis 01/22/2011 NELSON DO, ROSANNA K 462 Acute Pharyngitis 01/22/2011 NELSON DO, ROSANNA K 462 Acute Pharyngitis 01/22/2011 NELSON DO, ROSANNA K 462 Acute Pharyngitis 01/22/2011 BERNARD CORRIGAN PACHECO A 462 Acute Pharyngitis 01/22/2011 NELSON DO, ROSANNA K 462 Acute Pharyngitis 01/22/2011 JAKOB PARDOS, AUSTIN Cisneros 462 Acute Pharyngitis 01/22/2011 NELSON DO, ROSANNA K 462 Acute Pharyngitis 01/22/2011 NELSON DO, ROSANNA K 462 Acute Pharyngitis 01/22/2011 NELSON DO, ROSANNA K 462 Acute Pharyngitis 01/22/2011 BERNARD CORRIGAN, PACHECO A 462 Acute Pharyngitis 01/22/2011 NELSON DO, ROSANNA K 462 Acute Pharyngitis 01/22/2011 ONIEL HARRIS APRN R 462 Acute Pharyngitis 02/21/2011 NELSON DO, ROSANNA K 372.30 CONJUNCTIVITIS UNSPECIFIED 02/21/2011 NELSON DO, ROSANNA K 372.30 CONJUNCTIVITIS UNSPECIFIED 02/21/2011 372.30 CONJUNCTIVITIS UNSPECIFIED 02/21/2011 372.30 CONJUNCTIVITIS UNSPECIFIED 02/21/2011 NASRA RUVALCABA MD 372.30 CONJUNCTIVITIS UNSPECIFIED 02/21/2011 NELSON DO, ROSANNA K 372.30 Conjunctivitis Unspecified 02/21/2011 BARTOLOME BILLY MD 372.30 Conjunctivitis Unspecified 02/21/2011 372.30 Conjunctivitis Unspecified 02/21/2011 NELSON DO, ROSANNA K 372.30 Conjunctivitis Unspecified 02/21/2011 372.30 Conjunctivitis Unspecified 02/21/2011 372.30 Conjunctivitis Unspecified 02/21/2011 372.30 Conjunctivitis Unspecified 02/21/2011 372.30 Conjunctivitis Unspecified 02/21/2011 372.30 Conjunctivitis Unspecified 02/21/2011 372.30 Conjunctivitis Unspecified 02/21/2011 WILY RAMIREZ MD 372.30 Conjunctivitis Unspecified 02/21/2011 BERNARD SHEKHAR PACHECO A 372.30 Conjunctivitis Unspecified 02/21/2011 NELSON DO, ROSANNA K 372.30 Conjunctivitis Unspecified 02/21/2011 WILY RAMIREZ MD 372.30 Conjunctivitis Unspecified 02/21/2011 BERNARD APRN, PACHECO A 372.30 Conjunctivitis Unspecified 02/21/2011 RAFA LAZO APRN R 372.30 Conjunctivitis Unspecified 02/21/2011 NELSON DO, ROSANNA K 372.30 Conjunctivitis Unspecified 02/21/2011 SIMA HODGES APRN L 372.30 Conjunctivitis Unspecified 02/21/2011 NELSON DO, ROSANNA K 372.30 Conjunctivitis Unspecified 02/21/2011 NELSON DO, ROSANNA K 372.30 Conjunctivitis Unspecified 02/21/2011 NELSON DO, ROSANNA K 372.30 Conjunctivitis Unspecified 02/21/2011 BERNARD CONDUCTOR AND ENGINEER, PACHECO A 372.30 Conjunctivitis Unspecified 02/21/2011 NELSON DO, ROSANNA K 372.30 Conjunctivitis Unspecified 02/21/2011 JAKOB DDS, AUSTIN Cisneros 372.30 Conjunctivitis Unspecified 02/21/2011 NELSON DO, ROSANNA K 372.30 Conjunctivitis Unspecified 02/21/2011 NELSON DO, ROSANNA K 372.30 Conjunctivitis Unspecified 02/21/2011 NELSON DO, ROSANNA K 372.30 Conjunctivitis Unspecified 02/21/2011 BERNARD CORRIGAN PACHECO A 372.30 Conjunctivitis Unspecified 02/21/2011 NELSON DO, ROSANNA K 372.30 Conjunctivitis Unspecified 02/21/2011 ONIEL HARRIS APRN R 372.30 Conjunctivitis Unspecified 04/29/2011 NELSON DO, ROSANNA K 388.70 OTALGIA 04/29/2011 NELSON DO, ROSANNA K 388.70 OTALGIA 04/29/2011 388.70 OTALGIA 04/29/2011 388.70 OTALGIA 04/29/2011 JORDON ESCOBAR, NASRA 388.70 OTALGIA 04/29/2011 NELSON DO, ROSANNA K 388.70 Otalgia 04/29/2011 NGOC COREAS MD, BARTOLOME A 388.70 Otalgia 04/29/2011 388.70 Otalgia 04/29/2011 NELSON DO, ROSANNA K 388.70 Otalgia 04/29/2011 388.70 Otalgia 04/29/2011 388.70 Otalgia 04/29/2011 388.70 Otalgia 04/29/2011 388.70 Otalgia 04/29/2011 388.70 Otalgia 04/29/2011 388.70 Otalgia 04/29/2011 JAMES ESCOBAR, WILY 388.70 Otalgia 04/29/2011 PACHECO WAGNER APRN A 388.70 Otalgia 04/29/2011 NELSON DO, ROSANNA K 388.70 Otalgia 04/29/2011 WILY RAMIREZ MD 388.70 Otalgia 04/29/2011 PACHECO WAGNER APRN A 388.70 Otalgia 04/29/2011 RAFA LAZO APRN 388.70 Otalgia 04/29/2011 NELSON DO, ROSANNA K 388.70 Otalgia 04/29/2011 SIMA HODGES APRN 388.70 Otalgia 04/29/2011 NELSON DO, ROSANNA K 388.70 Otalgia 04/29/2011 NELSON DO, ROSANNA K 388.70 Otalgia 04/29/2011 NELSON DO, ROSANNA K 388.70 Otalgia 04/29/2011 PACHECO WAGNER APRN A 388.70 Otalgia 04/29/2011 NELSON DO, ROSANNA K 388.70 Otalgia 04/29/2011 AUSTIN ROBERT DDS 388.70 Otalgia 04/29/2011 NELSON DO, ROSANNA K 388.70 Otalgia 04/29/2011 NELSON DO, ROSANNA K 388.70 Otalgia 04/29/2011 NELSON DO, ROSANNA K 388.70 Otalgia 04/29/2011 BERNARD CONDUCTOR AND ENGINEER, PACHECO A 388.70 Otalgia 04/29/2011 ROSANNA NELSON DO K 388.70 Otalgia 04/29/2011 ONIEL HARRIS APRN 388.70 Otalgia 06/14/2011 ROSANNA NELSON DO K 382.00 OTITIS MEDIA ACUTE SUPPURATIVE 06/14/2011 ROSANNA NELSON DO K 382.00 OTITIS MEDIA ACUTE SUPPURATIVE 06/14/2011 382.00 OTITIS MEDIA ACUTE SUPPURATIVE 06/14/2011 382.00 OTITIS MEDIA ACUTE SUPPURATIVE 06/14/2011 JORDON ESCOBAR, NASRA 382.00 OTITIS MEDIA ACUTE SUPPURATIVE 06/14/2011 ROSANNA NELSON DO 382.00 Otitis Media Acute Suppurative 06/14/2011 NGOC COREAS MD, BARTOLOME Willis 382.00 Otitis Media Acute Suppurative 06/14/2011 382.00 Otitis Media Acute Suppurative 06/14/2011 ROSANNA NELSON DO 382.00 Otitis Media Acute Suppurative 06/14/2011 382.00 Otitis Media Acute Suppurative 06/14/2011 382.00 Otitis Media Acute Suppurative 06/14/2011 382.00 Otitis Media Acute Suppurative 06/14/2011 382.00 Otitis Media Acute Suppurative 06/14/2011 382.00 Otitis Media Acute Suppurative 06/14/2011 382.00 Otitis Media Acute Suppurative 06/14/2011 WILY RAMIREZ MD 382.00 Otitis Media Acute Suppurative 06/14/2011 BERNARD CORRIGAN, PACHECO A 382.00 Otitis Media Acute Suppurative 06/14/2011 ROSANNA NELSON DO 382.00 Otitis Media Acute Suppurative 06/14/2011 WILY RAMIREZ MD 382.00 Otitis Media Acute Suppurative 06/14/2011 PACHECO WAGNER APRN A 382.00 Otitis Media Acute Suppurative 06/14/2011 RAFA LAZO APRN 382.00 Otitis Media Acute Suppurative 06/14/2011 ROSANNA NELSON DO 382.00 Otitis Media Acute Suppurative 06/14/2011 SIMA HODGES APRN 382.00 Otitis Media Acute Suppurative 06/14/2011 ROSANNA NELSON DO K 382.00 Otitis Media Acute Suppurative 06/14/2011 ROSANNA NELSON DO 382.00 Otitis Media Acute Suppurative 06/14/2011 NELSON DO, ROSANNA K 382.00 Otitis Media Acute Suppurative 06/14/2011 BERNARD CONDUCTOR AND ENGINEER, PACHECO A 382.00 Otitis Media Acute Suppurative 06/14/2011 NELSON DO, ROSANNA K 382.00 Otitis Media Acute Suppurative 06/14/2011 JAKOB DDS, AUSTIN Cisneros 382.00 Otitis Media Acute Suppurative 06/14/2011 NELSON DO, ROSANNA K 382.00 Otitis Media Acute Suppurative 06/14/2011 NELSON DO, ROSANNA K 382.00 Otitis Media Acute Suppurative 06/14/2011 NELSON DO, ROSANNA K 382.00 Otitis Media Acute Suppurative 06/14/2011 BERNARD CONDUCTOR AND ENGINEER, PACHECO A 382.00 Otitis Media Acute Suppurative 06/14/2011 NELSON DO, ROSANNA K 382.00 Otitis Media Acute Suppurative 06/14/2011 ONIEL HARRIS APRN 382.00 Otitis Media Acute Suppurative 08/18/2011 NELSON DOSAGEA K 616.10 VAGINITIS VULVOVAGINITIS UNSPECIFIED 08/18/2011 SAGE NELSON DOA K 786.52 CHEST WALL PAIN 08/18/2011 NELSON DOSAGEA K 616.10 VAGINITIS VULVOVAGINITIS UNSPECIFIED 08/18/2011 NELSON DOSAGEA K 786.52 CHEST WALL PAIN 08/18/2011 616.10 VAGINITIS VULVOVAGINITIS UNSPECIFIED 08/18/2011 786.52 CHEST WALL PAIN 08/18/2011 616.10 VAGINITIS VULVOVAGINITIS UNSPECIFIED 08/18/2011 786.52 CHEST WALL PAIN 08/18/2011 NASRA RUVALCABA MD 616.10 VAGINITIS VULVOVAGINITIS UNSPECIFIED 08/18/2011 NASRA RUVALCABA MD 786.52 CHEST WALL PAIN 08/18/2011 ROSANNA NELSON DO 616.10 VAGINITIS VULVOVAGINITIS UNSPECIFIED 08/18/2011 ROSANNA NELSON DO K 786.52 Chest Wall Pain 08/18/2011 BARTOLOME BILLY MD 616.10 VAGINITIS VULVOVAGINITIS UNSPECIFIED 08/18/2011 BARTOLOME BILLY MD 786.52 Chest Wall Pain 08/18/2011 616.10 VAGINITIS VULVOVAGINITIS UNSPECIFIED 08/18/2011 786.52 Chest Wall Pain 08/18/2011 ROSANNA NELSON DO K 616.10 VAGINITIS VULVOVAGINITIS UNSPECIFIED 08/18/2011 ROSANNA NELSON DO K 786.52 Chest Wall Pain 08/18/2011 616.10 Vaginitis Vulvovaginitis Unspecified 08/18/2011 786.52 Chest Wall Pain 08/18/2011 616.10 Vaginitis Vulvovaginitis Unspecified 08/18/2011 786.52 Chest Wall Pain 08/18/2011 616.10 Vaginitis Vulvovaginitis Unspecified 08/18/2011 786.52 Chest Wall Pain 08/18/2011 616.10 Vaginitis Vulvovaginitis Unspecified 08/18/2011 786.52 Chest Wall Pain 08/18/2011 616.10 Vaginitis Vulvovaginitis Unspecified 08/18/2011 786.52 Chest Wall Pain 08/18/2011 616.10 Vaginitis Vulvovaginitis Unspecified 08/18/2011 786.52 Chest Wall Pain 08/18/2011 WILY RAMIREZ MD 616.10 Vaginitis Vulvovaginitis Unspecified 08/18/2011 WILY RAMIREZ MD 786.52 Chest Wall Pain 08/18/2011 PACHECO WAGNER APRN A 616.10 Vaginitis Vulvovaginitis Unspecified 08/18/2011 PACHECO WAGNER APRN A 786.52 Chest Wall Pain 08/18/2011 ROSANNA NELSON DO 616.10 Vaginitis Vulvovaginitis Unspecified 08/18/2011 ROSANNA NELSON DO 786.52 Chest Wall Pain 08/18/2011 WILY RAMIREZ MD 616.10 Vaginitis Vulvovaginitis Unspecified 08/18/2011 WILY RAMIREZ MD 786.52 Chest Wall Pain 08/18/2011 PACHECO WAGNER APRN A 616.10 Vaginitis Vulvovaginitis Unspecified 08/18/2011 PACHECO WAGNER APRN A 786.52 Chest Wall Pain 08/18/2011 RAFA LAZO APRN R 616.10 Vaginitis Vulvovaginitis Unspecified 08/18/2011 JASPAL LAZO APRNINA R 786.52 Chest Wall Pain 08/18/2011 NELSON DO, ROSANNA K 616.10 Vaginitis Vulvovaginitis Unspecified 08/18/2011 NELSON DO, ROSANNA K 786.52 Chest Wall Pain 08/18/2011 MADL CONDUCTOR AND ENGINEER, SIMA L 616.10 Vaginitis Vulvovaginitis Unspecified 08/18/2011 MADL CONDUCTOR AND ENGINEER, SIMA L 786.52 Chest Wall Pain 08/18/2011 NELSON DO, ROSANNA K 616.10 Vaginitis Vulvovaginitis Unspecified 08/18/2011 NELSON DO, ROSANNA K 786.52 Chest Wall Pain 08/18/2011 NELSON DO, ROSANNA K 616.10 Vaginitis Vulvovaginitis Unspecified 08/18/2011 NELSON DO, ROSANNA K 786.52 Chest Wall Pain 08/18/2011 NELSON DO, ROSANNA K 616.10 Vaginitis Vulvovaginitis Unspecified 08/18/2011 NELSON DO, ROSANNA K 786.52 Chest Wall Pain 08/18/2011 BERNARD CONDUCTOR AND ENGINEER, PACHECO A 616.10 Vaginitis Vulvovaginitis Unspecified 08/18/2011 BERNARD CONDUCTOR AND ENGINEER, PACHECO A 786.52 Chest Wall Pain 08/18/2011 NELSON DO, ROSANNA K 616.10 Vaginitis Vulvovaginitis Unspecified 08/18/2011 NELSON DO, ROSANNA K 786.52 Chest Wall Pain 08/18/2011 WHITE DDS, AUSTIN D 616.10 Vaginitis Vulvovaginitis Unspecified 08/18/2011 WHITE DDS, AUSTIN D 786.52 Chest Wall Pain 08/18/2011 NELSON DO, ROSANNA K 616.10 Vaginitis Vulvovaginitis Unspecified 08/18/2011 NELSON DO, ROSANNA K 786.52 Chest Wall Pain 08/18/2011 NELSON DO, ROSANNA K 616.10 Vaginitis Vulvovaginitis Unspecified 08/18/2011 NELSON DO, ROSANNA K 786.52 Chest Wall Pain 08/18/2011 NELSON DO, ROSANNA K 616.10 Vaginitis Vulvovaginitis Unspecified 08/18/2011 NELSON DO, ROSANNA K 786.52 Chest Wall Pain 08/18/2011 BERNARD CONDUCTOR AND ENGINEER, PACHECO A 616.10 Vaginitis Vulvovaginitis Unspecified 08/18/2011 BERNARD CORRIGAN, PACHECO A 786.52 Chest Wall Pain 08/18/2011 NELSON DO, ROSANNA K 616.10 Vaginitis Vulvovaginitis Unspecified 08/18/2011 NELSON DO, ROSANNA K 786.52 Chest Wall Pain 08/18/2011 CYNTHIA HARRIS APRNIA R 616.10 Vaginitis Vulvovaginitis Unspecified 08/18/2011 CYNTHIA HARRIS APRNIA R 786.52 Chest Wall Pain 12/16/2011 NELSON DO, ROSANNA K 268.9 UNSPECIFIED VITAMIN D DEFICIENCY 12/16/2011 NELSON DO, ROSANNA K 461.9 SINUSITIS ACUTE 12/16/2011 NELSON DO, ROSANNA K 599.0 URINARY TRACT INFECTION 12/16/2011 NELSON DO, ROSANNA K 268.9 UNSPECIFIED VITAMIN D DEFICIENCY 12/16/2011 NELSON DO, ROSANNA K 461.9 SINUSITIS ACUTE 12/16/2011 NELSON DO, ROSANNA K 599.0 URINARY TRACT INFECTION 12/16/2011 268.9 UNSPECIFIED VITAMIN D DEFICIENCY 12/16/2011 461.9 SINUSITIS ACUTE 12/16/2011 599.0 URINARY TRACT INFECTION 12/16/2011 268.9 UNSPECIFIED VITAMIN D DEFICIENCY 12/16/2011 461.9 SINUSITIS ACUTE 12/16/2011 599.0 URINARY TRACT INFECTION 12/16/2011 NASRA RUVALCABA MD 268.9 VITAMIN D DEFICIENCY 12/16/2011 NASRA RUVALCABA MD 461.9 SINUSITIS ACUTE 12/16/2011 NASRA RUVALCABA MD 599.0 URINARY TRACT INFECTION 12/16/2011 NELSON DO, ROSANNA K 268.9 VITAMIN D DEFICIENCY 12/16/2011 NELSON DO, ROSANNA K 461.9 Sinusitis Acute 12/16/2011 NELSON DO, ROSANNA K 599.0 Urinary Tract Infection 12/16/2011 BARTOLOME BILLY MD 268.9 VITAMIN D DEFICIENCY 12/16/2011 BARTOLOME BILLY MD 461.9 Sinusitis Acute 12/16/2011 BARTOLOME BILLY MD 599.0 Urinary Tract Infection 12/16/2011 268.9 VITAMIN D DEFICIENCY 12/16/2011 461.9 Sinusitis Acute 12/16/2011 599.0 Urinary Tract Infection 12/16/2011 NELSON DO, ROSANNA K 268.9 VITAMIN D DEFICIENCY 12/16/2011 NELSON DO, ROSANNA K 461.9 Sinusitis Acute 12/16/2011 NELSON DO, ROSANNA K 599.0 Urinary Tract Infection 12/16/2011 268.9 VITAMIN D DEFICIENCY 12/16/2011 461.9 Sinusitis Acute 12/16/2011 599.0 Urinary Tract Infection 12/16/2011 268.9 VITAMIN D DEFICIENCY 12/16/2011 461.9 Sinusitis Acute 12/16/2011 599.0 Urinary Tract Infection 12/16/2011 268.9 VITAMIN D DEFICIENCY 12/16/2011 461.9 Sinusitis Acute 12/16/2011 599.0 Urinary Tract Infection 12/16/2011 268.9 VITAMIN D DEFICIENCY 12/16/2011 461.9 Sinusitis Acute 12/16/2011 599.0 Urinary Tract Infection 12/16/2011 268.9 VITAMIN D DEFICIENCY 12/16/2011 461.9 Sinusitis Acute 12/16/2011 599.0 Urinary Tract Infection 12/16/2011 268.9 VITAMIN D DEFICIENCY 12/16/2011 461.9 Sinusitis Acute 12/16/2011 599.0 Urinary Tract Infection 12/16/2011 WILY RAMIREZ MD 268.9 VITAMIN D DEFICIENCY 12/16/2011 WILY RAMIREZ MD 461.9 Sinusitis Acute 12/16/2011 WILY RAMIREZ MD 599.0 Urinary Tract Infection 12/16/2011 PACHECO WAGNER APRN 268.9 VITAMIN D DEFICIENCY 12/16/2011 PACHECO WAGNER APRN A 461.9 Sinusitis Acute 12/16/2011 AMIRAH WAGNER APRNIDI A 599.0 Urinary Tract Infection 12/16/2011 NELSON DO ROSANNA K 268.9 VITAMIN D DEFICIENCY 12/16/2011 NELSON DO, ROSANNA K 461.9 Sinusitis Acute 12/16/2011 NELSON DO, ROSANNA K 599.0 Urinary Tract Infection 12/16/2011 WILY RAMIREZ MD 268.9 VITAMIN D DEFICIENCY 12/16/2011 WILY RAMIREZ MD 461.9 Sinusitis Acute 12/16/2011 WILY RAMIREZ MD 599.0 Urinary Tract Infection 12/16/2011 PACHECO WAGNER APRN A 268.9 VITAMIN D DEFICIENCY 12/16/2011 BERNARD CONDUCTOR AND ENGINEER, PACHECO A 461.9 Sinusitis Acute 12/16/2011 BERNARD CONDUCTOR AND ENGINEER, PACHECO A 599.0 Urinary Tract Infection 12/16/2011 CLIFT[place] CONDUCTOR AND ENGINEER, RAFA R 268.9 VITAMIN D DEFICIENCY 12/16/2011 CLIFT[place] CONDUCTOR AND ENGINEER, RAFA R 461.9 Sinusitis Acute 12/16/2011 CLIFTON CONDUCTOR AND ENGINEER, RAFA R 599.0 Urinary Tract Infection 12/16/2011 NELSON DO, ROSANNA K 268.9 VITAMIN D DEFICIENCY 12/16/2011 NELSON DO, ROSANNA K 461.9 Sinusitis Acute 12/16/2011 NELSON DO, ROSANNA K 599.0 Urinary Tract Infection 12/16/2011 MADL CONDUCTOR AND ENGINEER, SIMA L 268.9 VITAMIN D DEFICIENCY 12/16/2011 MADL CONDUCTOR AND ENGINEER, SIMA L 461.9 Sinusitis Acute 12/16/2011 MADL CONDUCTOR AND ENGINEER, SIMA L 599.0 Urinary Tract Infection 12/16/2011 NELSON DO, ROSANNA K 268.9 VITAMIN D DEFICIENCY 12/16/2011 NELSON DO, ROSANNA K 461.9 Sinusitis Acute 12/16/2011 NELSON DO, ROSANNA K 599.0 Urinary Tract Infection 12/16/2011 NELSON DO, ROSANNA K 268.9 VITAMIN D DEFICIENCY 12/16/2011 NELSON DO, ROSANNA K 461.9 Sinusitis Acute 12/16/2011 NELSON DO, ROSANNA K 599.0 Urinary Tract Infection 12/16/2011 NELSON DO, ROSANNA K 268.9 VITAMIN D DEFICIENCY 12/16/2011 NELSON DO, ROSANNA K 461.9 Sinusitis Acute 12/16/2011 NELSON DO, ROSANNA K 599.0 Urinary Tract Infection 12/16/2011 BERNARD CONDUCTOR AND ENGINEER, PACHECO A 268.9 VITAMIN D DEFICIENCY 12/16/2011 BERNARD CONDUCTOR AND ENGINEER, PACHECO A 461.9 Sinusitis Acute 12/16/2011 BERNARD CONDUCTOR AND ENGINEER, PACHECO A 599.0 Urinary Tract Infection 12/16/2011 NELSON DO, ROSANNA K 268.9 VITAMIN D DEFICIENCY 12/16/2011 NELSON DO, ROSANNA K 461.9 Sinusitis Acute 12/16/2011 NELSON DO, ROSANNA K 599.0 Urinary Tract Infection 12/16/2011 WHITE DDS, AUSTIN D 268.9 VITAMIN D DEFICIENCY 12/16/2011 WHITE DDS, AUSTIN D 461.9 Sinusitis Acute 12/16/2011 WHITE DDS, AUSTIN D 599.0 Urinary Tract Infection 12/16/2011 NELSON DO, ROSANNA K 268.9 VITAMIN D DEFICIENCY 12/16/2011 NELSON DO, ROSANNA K 461.9 Sinusitis Acute 12/16/2011 NELSON DO, ROSANNA K 599.0 Urinary Tract Infection 12/16/2011 NELSON DO, ROSANNA K 268.9 VITAMIN D DEFICIENCY 12/16/2011 NELSON DO, ROSANNA K 461.9 Sinusitis Acute 12/16/2011 NELSON DO, ROSANNA K 599.0 Urinary Tract Infection 12/16/2011 NELSON DO, ROSANNA K 268.9 VITAMIN D DEFICIENCY 12/16/2011 NELSON DO, ROSANNA K 461.9 Sinusitis Acute 12/16/2011 NELSON DO, ROSANNA K 599.0 Urinary Tract Infection 12/16/2011 BERNARD CONDUCTOR AND ENGINEER, PACHECO A 268.9 VITAMIN D DEFICIENCY 12/16/2011 BERNARD CONDUCTOR AND ENGINEER, PACHECO A 461.9 Sinusitis Acute 12/16/2011 BERNARD CONDUCTOR AND ENGINEER, PACHECO A 599.0 Urinary Tract Infection 12/16/2011 NELSON DO, ROSANNA K 268.9 VITAMIN D DEFICIENCY 12/16/2011 NELSON DO, ROSANNA K 461.9 Sinusitis Acute 12/16/2011 NELSON DO, ROSANNA K 599.0 Urinary Tract Infection 12/16/2011 KIMBERLEY HARRIS APRNRICIA R 268.9 VITAMIN D DEFICIENCY 12/16/2011 KIMBERLEY HARRIS APRNRICIA R 461.9 Sinusitis Acute 12/16/2011 KIMBERLY CORRIGAN ONIEL R 599.0 Urinary Tract Infection 02/29/2012 NELSON DO, ROSANNA K 008.8 GASTROENTERITIS, VIRAL 02/29/2012 NELSON DO, ROSANNA K 787.02 NAUSEA ALONE 02/29/2012 NELSON DO, ROSANNA K 787.91 DIARRHEA 02/29/2012 NELSON DO, ROSANNA K 008.8 GASTROENTERITIS, VIRAL 02/29/2012 NELSON DO, ROSANNA K 787.02 NAUSEA ALONE 02/29/2012 NELSON DO, ROSANNA K 787.91 DIARRHEA 02/29/2012 008.8 GASTROENTERITIS, VIRAL 02/29/2012 787.02 NAUSEA ALONE 02/29/2012 787.91 DIARRHEA 02/29/2012 008.8 GASTROENTERITIS, VIRAL 02/29/2012 787.02 NAUSEA ALONE 02/29/2012 787.91 DIARRHEA 02/29/2012 NASRA RUVALCABA MD 008.8 GASTROENTERITIS, VIRAL 02/29/2012 NASRA RUVALCABA MD 787.02 NAUSEA ALONE 02/29/2012 NASRA RUVALCABA MD 787.91 DIARRHEA 02/29/2012 NELSON DO ROSANNA K 008.8 Gastroenteritis, Viral 02/29/2012 NELSON DO ROSANNA K 787.02 Nausea Alone 02/29/2012 NELSON DO, ROSANNA K 787.91 Diarrhea 02/29/2012 NGOC COREAS MD, BARTOLOME Willis 008.8 Gastroenteritis, Viral 02/29/2012 NGOC COREAS MD, BARTOLOME A 787.02 Nausea Alone 02/29/2012 NGOC COREAS MD, BARTOLOME A 787.91 Diarrhea 02/29/2012 008.8 Gastroenteritis, Viral 02/29/2012 787.02 Nausea Alone 02/29/2012 787.91 Diarrhea 02/29/2012 NELSON DO ROSANNA K 008.8 Gastroenteritis, Viral 02/29/2012 NELSON DO ROSANNA K 787.02 Nausea Alone 02/29/2012 NELSON DO ROSANNA K 787.91 Diarrhea 02/29/2012 008.8 Gastroenteritis, Viral 02/29/2012 787.02 Nausea Alone 02/29/2012 787.91 Diarrhea 02/29/2012 008.8 Gastroenteritis, Viral 02/29/2012 787.02 Nausea Alone 02/29/2012 787.91 Diarrhea 02/29/2012 008.8 Gastroenteritis, Viral 02/29/2012 787.02 Nausea Alone 02/29/2012 787.91 Diarrhea 02/29/2012 008.8 Gastroenteritis, Viral 02/29/2012 787.02 Nausea Alone 02/29/2012 787.91 Diarrhea 02/29/2012 008.8 Gastroenteritis, Viral 02/29/2012 787.02 Nausea Alone 02/29/2012 787.91 Diarrhea 02/29/2012 008.8 Gastroenteritis, Viral 02/29/2012 787.02 Nausea Alone 02/29/2012 787.91 Diarrhea 02/29/2012 WILY RAMIREZ MD 008.8 Gastroenteritis, Viral 02/29/2012 WILY RAMIREZ MD 787.02 Nausea Alone 02/29/2012 JAMES ESCOBAR, WILY 787.91 Diarrhea 02/29/2012 PACHECO WAGENR APRN A 008.8 Gastroenteritis, Viral 02/29/2012 BERNARD CORRIGAN PACHECO A 787.02 Nausea Alone 02/29/2012 AMIRAH WAGNER APRNIDI A 787.91 Diarrhea 02/29/2012 NELSON DO, ROSANNA K 008.8 Gastroenteritis, Viral 02/29/2012 NELSON DO, ROSANNA K 787.02 Nausea Alone 02/29/2012 NELSON DO, ROSANNA K 787.91 Diarrhea 02/29/2012 JAMES ESCOBAR, WILY 008.8 Gastroenteritis, Viral 02/29/2012 JAMES ESCOBAR, WILY 787.02 Nausea Alone 02/29/2012 JAMES ESCOBAR, WILY 787.91 Diarrhea 02/29/2012 PACHECO WAGNER APRN A 008.8 Gastroenteritis, Viral 02/29/2012 AMIRAH WAGNER APRNIDI A 787.02 Nausea Alone 02/29/2012 AMIRAH WAGNER APRNIDI A 787.91 Diarrhea 02/29/2012 CLIFTON CORRIGAN, RAFA R 008.8 Gastroenteritis, Viral 02/29/2012 CLIFTON SHEKHAR, RAFA R 787.02 Nausea Alone 02/29/2012 CLIFTON SHEKHAR, RAFA R 787.91 Diarrhea 02/29/2012 NELSON DO, ROSANNA K 008.8 Gastroenteritis, Viral 02/29/2012 NELSON DO, ROSANNA K 787.02 Nausea Alone 02/29/2012 NELSON DO, ROSANNA K 787.91 Diarrhea 02/29/2012 CARROLL CORRIGAN, SIMA L 008.8 Gastroenteritis, Viral 02/29/2012 MADL SHEKHAR, SIMA L 787.02 Nausea Alone 02/29/2012 MADL CONDUCTOR AND ENGINEER, SIMA L 787.91 Diarrhea 02/29/2012 NELSON DO, ROSANNA K 008.8 Gastroenteritis, Viral 02/29/2012 NELSON DO, ROSANNA K 787.02 Nausea Alone 02/29/2012 NELSON DO, ROSANNA K 787.91 Diarrhea 02/29/2012 NELSON DO, ROSANNA K 008.8 Gastroenteritis, Viral 02/29/2012 NELSON DO, ROSANNA K 787.02 Nausea Alone 02/29/2012 NELSON DO, ROSANNA K 787.91 Diarrhea 02/29/2012 NELSON DO, ROSANNA K 008.8 Gastroenteritis, Viral 02/29/2012 NELSON DO, ROSANNA K 787.02 Nausea Alone 02/29/2012 NELSON DO, ROSANNA K 787.91 Diarrhea 02/29/2012 BERNARD CONDUCTOR AND ENGINEER, PACHECO A 008.8 Gastroenteritis, Viral 02/29/2012 BERNARD CONDUCTOR AND ENGINEER, PACHECO A 787.02 Nausea Alone 02/29/2012 BERNARD CONDUCTOR AND ENGINEER, PACHECO A 787.91 Diarrhea 02/29/2012 NELSON DO, ROSANNA K 008.8 Gastroenteritis, Viral 02/29/2012 NELSON DO, ROSANNA K 787.02 Nausea Alone 02/29/2012 NELSON DO, ROSANNA K 787.91 Diarrhea 02/29/2012 WHITE DDS, AUSTIN D 008.8 Gastroenteritis, Viral 02/29/2012 WHITE DDS, AUSTIN D 787.02 Nausea Alone 02/29/2012 WHITE DDS, AUSTIN D 787.91 Diarrhea 02/29/2012 NELSON DO, ROSANNA K 008.8 Gastroenteritis, Viral 02/29/2012 NELSON DO, ROSANNA K 787.02 Nausea Alone 02/29/2012 NELSON DO, ROSANNA K 787.91 Diarrhea 02/29/2012 NELSON DO, ROSANNA K 008.8 Gastroenteritis, Viral 02/29/2012 NELSON DO, ROSANNA K 787.02 Nausea Alone 02/29/2012 NELSON DO, ROSANNA K 787.91 Diarrhea 02/29/2012 NELSON DO, ROSANNA K 008.8 Gastroenteritis, Viral 02/29/2012 NELSON DO, ROSANNA K 787.02 Nausea Alone 02/29/2012 NELSON DO, ROSANNA K 787.91 Diarrhea 02/29/2012 BERNARD CONDUCTOR AND ENGINEER, PACHECO A 008.8 Gastroenteritis, Viral 02/29/2012 BERNARD CONDUCTOR AND ENGINEER, PACHECO A 787.02 Nausea Alone 02/29/2012 BERNARD CONDUCTOR AND ENGINEER, PACHECO A 787.91 Diarrhea 02/29/2012 NELSON DO, ROSANNA K 008.8 Gastroenteritis, Viral 02/29/2012 NELSON DO, ROSANNA K 787.02 Nausea Alone 02/29/2012 NELSON DO, ROSANNA K 787.91 Diarrhea 02/29/2012 ONIEL HARRIS APRN R 008.8 Gastroenteritis, Viral 02/29/2012 ONIEL HARRIS APRN R 787.02 Nausea Alone 02/29/2012 ONIEL HARRIS APRN R 787.91 Diarrhea 05/07/2012 V73.81 HPV SCREENING 05/07/2012 V74.5 STD SCREEN 05/07/2012 V76.2 CERVICAL CANCER SCREENING (PAP SMEAR) 05/07/2012 V76.41 SCREENING FOR MALIGNANT NEOPLASMS OF THE RECTUM 05/07/2012 NARSA RUVALCABA MD V73.81 HPV SCREENING 05/07/2012 NASRA RUVALCABA MD V74.5 STD SCREEN 05/07/2012 NASRA RUVALCABA MD V76.2 CERVICAL CANCER SCREENING (PAP SMEAR) 05/07/2012 NASRA RUVALCABA MD V76.41 SCREENING FOR MALIGNANT NEOPLASMS OF THE RECTUM 05/07/2012 ROSANNA NELSON DO V73.81 Hpv Screening 05/07/2012 ROSANNA NELSON DO V74.5 Std Screen 05/07/2012 ROSANNA NELSON DO V76.2 Cervical Cancer Screening (pap Smear) 05/07/2012 ROSANNA NELSON DO V76.41 Screening For Malignant Neoplasms Of The Rectum 05/07/2012 BARTOLOME BILLY MD V73.81 Hpv Screening 05/07/2012 BARTOLOME BILLY MD V74.5 Std Screen 05/07/2012 BARTOLOME BILLY MD V76.2 Cervical Cancer Screening (pap Smear) 05/07/2012 BARTOLOME BILLY MD V76.41 Screening For Malignant Neoplasms Of The Rectum 05/07/2012 V73.81 Hpv Screening 05/07/2012 V74.5 Std Screen 05/07/2012 V76.2 Cervical Cancer Screening (pap Smear) 05/07/2012 V76.41 Screening For Malignant Neoplasms Of The Rectum 05/07/2012 ROSANNA NELSON DO V73.81 Hpv Screening 05/07/2012 SAGE NELSON DOA K V74.5 Std Screen 05/07/2012 ROSANNA NELSON DO V76.2 Cervical Cancer Screening (pap Smear) 05/07/2012 ROSANNA NELSON DO K V76.41 Screening For Malignant Neoplasms Of The Rectum 05/07/2012 V73.81 Hpv Screening 05/07/2012 V74.5 Std Screen 05/07/2012 V76.2 Cervical Cancer Screening (pap Smear) 05/07/2012 V76.41 Screening For Malignant Neoplasms Of The Rectum 05/07/2012 V73.81 Hpv Screening 05/07/2012 V74.5 Std Screen 05/07/2012 V76.2 Cervical Cancer Screening (pap Smear) 05/07/2012 V76.41 Screening For Malignant Neoplasms Of The Rectum 05/07/2012 V73.81 Hpv Screening 05/07/2012 V74.5 Std Screen 05/07/2012 V76.2 Cervical Cancer Screening (pap Smear) 05/07/2012 V76.41 Screening For Malignant Neoplasms Of The Rectum 05/07/2012 V73.81 Hpv Screening 05/07/2012 V74.5 Std Screen 05/07/2012 V76.2 Cervical Cancer Screening (pap Smear) 05/07/2012 V76.41 Screening For Malignant Neoplasms Of The Rectum 05/07/2012 V73.81 Hpv Screening 05/07/2012 V74.5 Std Screen 05/07/2012 V76.2 Cervical Cancer Screening (pap Smear) 05/07/2012 V76.41 Screening For Malignant Neoplasms Of The Rectum 05/07/2012 V73.81 Hpv Screening 05/07/2012 V74.5 Std Screen 05/07/2012 V76.2 Cervical Cancer Screening (pap Smear) 05/07/2012 V76.41 Screening For Malignant Neoplasms Of The Rectum 05/07/2012 WILY RAMIREZ MD V73.81 Hpv Screening 05/07/2012 WILY RAMIREZ MD V74.5 Std Screen 05/07/2012 WILY RAMIREZ MD V76.2 Cervical Cancer Screening (pap Smear) 05/07/2012 WILY RAMIREZ MD V76.41 Screening For Malignant Neoplasms Of The Rectum 05/07/2012 PACHECO WAGNER APRN V73.81 Hpv Screening 05/07/2012 PACHECO WAGNER APRN V74.5 Std Screen 05/07/2012 PACHECO WAGNER APRN V76.2 Cervical Cancer Screening (pap Smear) 05/07/2012 PACHECO WAGNRE APRN V76.41 Screening For Malignant Neoplasms Of The Rectum 05/07/2012 ROSANNA NELSON DO V73.81 Hpv Screening 05/07/2012 ROSANNA NELSON DO V74.5 Std Screen 05/07/2012 ROSANNA NELSON DO V76.2 Cervical Cancer Screening (pap Smear) 05/07/2012 NELSON DO ROSANNA K V76.41 Screening For Malignant Neoplasms Of The Rectum 05/07/2012 WILY RAMIREZ MD V73.81 Hpv Screening 05/07/2012 JAMES ESCOBAR, WILY V74.5 Std Screen 05/07/2012 WILY RAMIREZ MD V76.2 Cervical Cancer Screening (pap Smear) 05/07/2012 WILY RAMIREZ MD V76.41 Screening For Malignant Neoplasms Of The Rectum 05/07/2012 BERNARD CONDUCTOR AND ENGINEER, PACHECO A V73.81 Hpv Screening 05/07/2012 BERNARD CONDUCTOR AND ENGINEER, PACHECO A V74.5 Std Screen 05/07/2012 BERNARD CORRIGAN, PACHECO A V76.2 Cervical Cancer Screening (pap Smear) 05/07/2012 BERNARD CORRIGAN, PACHECO A V76.41 Screening For Malignant Neoplasms Of The Rectum 05/07/2012 CLIFTON CONDUCTOR AND ENGINEER, RAFA R V73.81 Hpv Screening 05/07/2012 CLIFTON ANDREWSN, RAFA R V74.5 Std Screen 05/07/2012 CLIFTON CONDUCTOR AND ENGINEER, RAFA R V76.2 Cervical Cancer Screening (pap Smear) 05/07/2012 CLIFTON CONDUCTOR AND ENGINEER, RAFA R V76.41 Screening For Malignant Neoplasms Of The Rectum 05/07/2012 LESLIE JOHNSTON ROSANNA K V73.81 Hpv Screening 05/07/2012 LESLIE JOHNSTON ROSANNA K V74.5 Std Screen 05/07/2012 LESLEI JOHNSTON ROSANNA K V76.2 Cervical Cancer Screening (pap Smear) 05/07/2012 LESLIE JOHNSTON ROSANNA K V76.41 Screening For Malignant Neoplasms Of The Rectum 05/07/2012 MADFinn CONDUCTOR AND ENGINEER, SIMA L V73.81 Hpv Screening 05/07/2012 MADL CONDUCTOR AND ENGINEER, SIMA L V74.5 Std Screen 05/07/2012 MADFinn CONDUCTOR AND ENGINEER, SIMA L V76.2 Cervical Cancer Screening (pap Smear) 05/07/2012 CARROLL CONDUCTOR AND ENGINEER, SIMA L V76.41 Screening For Malignant Neoplasms Of The Rectum 05/07/2012 NELSON DO ROSANNA K V73.81 Hpv Screening 05/07/2012 NELSON DO ROSANNA K V74.5 Std Screen 05/07/2012 LESLIE JOHNSTON ROSANNA K V76.2 Cervical Cancer Screening (pap Smear) 05/07/2012 NELSON DO, ROSANNA K V76.41 Screening For Malignant Neoplasms Of The Rectum 05/07/2012 NELSON DO, ROSANNA K V73.81 Hpv Screening 05/07/2012 NELSON DO, ROSANNA K V74.5 Std Screen 05/07/2012 NELSON DO, ROSANNA K V76.2 Cervical Cancer Screening (pap Smear) 05/07/2012 NELSON DO, ROSANNA K V76.41 Screening For Malignant Neoplasms Of The Rectum 05/07/2012 NELSON DO, ROSANNA K V73.81 Hpv Screening 05/07/2012 NELSON DO, ROSANNA K V74.5 Std Screen 05/07/2012 NELSON DO, ROSANNA K V76.2 Cervical Cancer Screening (pap Smear) 05/07/2012 NELSON DO, ROSANNA K V76.41 Screening For Malignant Neoplasms Of The Rectum 05/07/2012 BERNARD CONDUCTOR AND ENGINEER, PACHECO A V73.81 Hpv Screening 05/07/2012 BERNARD CONDUCTOR AND ENGINEER, PACHECO A V74.5 Std Screen 05/07/2012 BERNARD CONDUCTOR AND ENGINEER, PACHECO A V76.2 Cervical Cancer Screening (pap Smear) 05/07/2012 BERNARD CONDUCTOR AND ENGINEER, PACHECO A V76.41 Screening For Malignant Neoplasms Of The Rectum 05/07/2012 NELSON DO, ROSANNA K V73.81 Hpv Screening 05/07/2012 NELSON DO, ROSANNA K V74.5 Std Screen 05/07/2012 NELSON DO, ROSANNA K V76.2 Cervical Cancer Screening (pap Smear) 05/07/2012 NELSON DO, ROSANNA K V76.41 Screening For Malignant Neoplasms Of The Rectum 05/07/2012 WHITE DDS, AUSTIN D V73.81 Hpv Screening 05/07/2012 WHITE DDS, AUSTIN D V74.5 Std Screen 05/07/2012 WHITE DDS, AUSTIN D V76.2 Cervical Cancer Screening (pap Smear) 05/07/2012 WHITE DDS, AUSTIN D V76.41 Screening For Malignant Neoplasms Of The Rectum 05/07/2012 NELSON DO, ROSANNA K V73.81 Hpv Screening 05/07/2012 NELSON DO, ROSANNA K V74.5 Std Screen 05/07/2012 NELSON DO, ROSANNA K V76.2 Cervical Cancer Screening (pap Smear) 05/07/2012 NELSON DO, ROSANNA K V76.41 Screening For Malignant Neoplasms Of The Rectum 05/07/2012 LESLIE JOHNSTON ROSANNA K V73.81 Hpv Screening 05/07/2012 LESLIE JOHNSTON, ROSANNA K V74.5 Std Screen 05/07/2012 NELSON DO, ROSANNA K V76.2 Cervical Cancer Screening (pap Smear) 05/07/2012 NELSON DO, ROSANNA K V76.41 Screening For Malignant Neoplasms Of The Rectum 05/07/2012 NELSON DO ROSANNA K V73.81 Hpv Screening 05/07/2012 NELSON DO ROSANNA K V74.5 Std Screen 05/07/2012 NELSON DO, ROSANNA K V76.2 Cervical Cancer Screening (pap Smear) 05/07/2012 NELSON DO ROSANNA K V76.41 Screening For Malignant Neoplasms Of The Rectum 05/07/2012 BERNARD SHEKHAR PACHECO A V73.81 Hpv Screening 05/07/2012 BERNARD CONDUCTOR AND ENGINEER, PACHECO A V74.5 Std Screen 05/07/2012 BERNARD SHEKHAR PACHECO A V76.2 Cervical Cancer Screening (pap Smear) 05/07/2012 BERNARD CONDUCTOR AND ENGINEER, PACHECO A V76.41 Screening For Malignant Neoplasms Of The Rectum 05/07/2012 NELSON DO ROSANNA K V73.81 Hpv Screening 05/07/2012 NELSON DO ROSANNA K V74.5 Std Screen 05/07/2012 NELSON DO ROSANNA K V76.2 Cervical Cancer Screening (pap Smear) 05/07/2012 NELSON DO ROSANNA K V76.41 Screening For Malignant Neoplasms Of The Rectum 05/07/2012 CYNTHIA HARRIS APRNIA R V73.81 Hpv Screening 05/07/2012 CYNTHIA HARRIS APRNIA R V74.5 Std Screen 05/07/2012 CYNTHIA HARRIS APRNIA R V76.2 Cervical Cancer Screening (pap Smear ) 05/07/2012 KIMBERLEY HARRIS APRNRICIA R V76.41 Screening For Malignant Neoplasms Of The Rectum 05/09/2012 JORDON ESCOBAR, NASRA 786.59 ATYPICAL CHEST PAIN 05/09/2012 ROSANNA NELSON DO 786.59 ATYPICAL CHEST PAIN 05/09/2012 NGOC COREAS MD, BARTOLOME Willis 786.59 ATYPICAL CHEST PAIN 05/09/2012 786.59 ATYPICAL CHEST PAIN 05/09/2012 ROSANNA NELSON DO 786.59 ATYPICAL CHEST PAIN 05/09/2012 786.59 Atypical Chest Pain 05/09/2012 786.59 Atypical Chest Pain 05/09/2012 786.59 Atypical Chest Pain 05/09/2012 786.59 Atypical Chest Pain 05/09/2012 786.59 Atypical Chest Pain 05/09/2012 786.59 Atypical Chest Pain 05/09/2012 WILY RAMIREZ MD 786.59 Atypical Chest Pain 05/09/2012 BERNARDMIGUEL CORRIGAN PACHECO A 786.59 Atypical Chest Pain 05/09/2012 NELSON DO, ROSANNA K 786.59 Atypical Chest Pain 05/09/2012 WILY RAMIREZ MD 786.59 Atypical Chest Pain 05/09/2012 BERNARDMIGUEL CORRIGAN PACHECO A 786.59 Atypical Chest Pain 05/09/2012 RAFA LAZO APRN 786.59 Atypical Chest Pain 05/09/2012 NELSON DO, ROSANNA K 786.59 Atypical Chest Pain 05/09/2012 SIMA HODGES APRN 786.59 Atypical Chest Pain 05/09/2012 NELSON DO, ROSANNA K 786.59 Atypical Chest Pain 05/09/2012 NELSON DO, ROSANNA K 786.59 Atypical Chest Pain 05/09/2012 NELSON DO, ROSANNA K 786.59 Atypical Chest Pain 05/09/2012 BERNARD CORRIGAN, PACHECO A 786.59 Atypical Chest Pain 05/09/2012 NELSON DO, ROSANNA K 786.59 Atypical Chest Pain 05/09/2012 JAKOB DDSAUSTIN 786.59 Atypical Chest Pain 05/09/2012 NELSON DO, ROSANNA K 786.59 Atypical Chest Pain 05/09/2012 NELSON DO, ROSANNA K 786.59 Atypical Chest Pain 05/09/2012 NELSON DO, ROSANNA K 786.59 Atypical Chest Pain 05/09/2012 BERNARD CORRIGAN, PACHECO A 786.59 Atypical Chest Pain 05/09/2012 NELSON DO, ROSANNA K 786.59 Atypical Chest Pain 05/09/2012 ONIEL HARRIS APRN 786.59 Atypical Chest Pain 06/07/2012 NGOC COREAS MD, BARTOLOME Willis 795.03 ABNORMAL PAP - LGSIL 06/07/2012 795.03 ABNORMAL PAP - LGSIL 06/07/2012 NELSON DO, ROSANNA K 795.03 ABNORMAL PAP - LGSIL 06/07/2012 795.03 ABNORMAL PAP - LGSIL 06/07/2012 795.03 ABNORMAL PAP - LGSIL 06/07/2012 795.03 ABNORMAL PAP - LGSIL 06/07/2012 795.03 ABNORMAL PAP - LGSIL 06/07/2012 795.03 ABNORMAL PAP - LGSIL 06/07/2012 795.03 ABNORMAL PAP - LGSIL 06/07/2012 WILY RAMIREZ MD 795.03 ABNORMAL PAP - LGSIL 06/07/2012 PACHECO WAGNER APRN A 795.03 ABNORMAL PAP - LGSIL 06/07/2012 NELSON DO ROSANNA K 795.03 ABNORMAL PAP - LGSIL 06/07/2012 WILY RAMIREZ MD 795.03 ABNORMAL PAP - LGSIL 06/07/2012 PACHECO WAGNER APRN A 795.03 ABNORMAL PAP - LGSIL 06/07/2012 RAFA LAZO APRN 795.03 ABNORMAL PAP - LGSIL 06/07/2012 NELSON DO, ROSANNA K 795.03 ABNORMAL PAP - LGSIL 06/07/2012 SIMA HODGES APRN 795.03 ABNORMAL PAP - LGSIL 06/07/2012 NELSON DO, ROSANNA K 795.03 ABNORMAL PAP - LGSIL 06/07/2012 NELSON DO, ROSANNA K 795.03 ABNORMAL PAP - LGSIL 06/07/2012 NELSON DO, ROSANNA K 795.03 ABNORMAL PAP - LGSIL 06/07/2012 AMIRAH WAGNER APRNIDI A 795.03 ABNORMAL PAP - LGSIL 06/07/2012 NELSON DO, ROSANNA K 795.03 ABNORMAL PAP - LGSIL 06/07/2012 AUSTIN ROBERT DDS 795.03 ABNORMAL PAP - LGSIL 06/07/2012 NELSON DO, ROSANNA K 795.03 ABNORMAL PAP - LGSIL 06/07/2012 NELSON DO, ROSANNA K 795.03 ABNORMAL PAP - LGSIL 06/07/2012 NELSON DO, ROSANNA K 795.03 ABNORMAL PAP - LGSIL 06/07/2012 PACHECO WAGNER APRN A 795.03 ABNORMAL PAP - LGSIL 06/07/2012 NELSON DO, ROSANNA K 795.03 ABNORMAL PAP - LGSIL 06/07/2012 ONIEL HARRIS APRN 795.03 ABNORMAL PAP - LGSIL 07/26/2012 599.0 URINARY TRACT INFECTION 07/26/2012 719.46 PAIN IN JOINT INVOLVING LOWER LEG 07/26/2012 599.0 URINARY TRACT INFECTION 07/26/2012 719.46 PAIN IN JOINT INVOLVING LOWER LEG 07/26/2012 599.0 URINARY TRACT INFECTION 07/26/2012 719.46 PAIN IN JOINT INVOLVING LOWER LEG 07/26/2012 599.0 URINARY TRACT INFECTION 07/26/2012 719.46 PAIN IN JOINT INVOLVING LOWER LEG 07/26/2012 599.0 URINARY TRACT INFECTION 07/26/2012 719.46 PAIN IN JOINT INVOLVING LOWER LEG 07/26/2012 599.0 URINARY TRACT INFECTION 07/26/2012 719.46 PAIN IN JOINT INVOLVING LOWER LEG 07/26/2012 WILY RAMIREZ MD 599.0 URINARY TRACT INFECTION 07/26/2012 WILY RAIMREZ MD 719.46 PAIN IN JOINT INVOLVING LOWER LEG 07/26/2012 PACHECO WAGNER APRN A 599.0 URINARY TRACT INFECTION 07/26/2012 PACHECO WAGNER APRN A 719.46 PAIN IN JOINT INVOLVING LOWER LEG 07/26/2012 NELSON DO ROSANNA K 599.0 URINARY TRACT INFECTION 07/26/2012 SAGE NELSON DOA K 719.46 PAIN IN JOINT INVOLVING LOWER LEG 07/26/2012 WILY RAMIREZ MD 599.0 URINARY TRACT INFECTION 07/26/2012 WILY RAMIREZ MD 719.46 PAIN IN JOINT INVOLVING LOWER LEG 07/26/2012 PACHECO WAGNER APRN A 599.0 URINARY TRACT INFECTION 07/26/2012 PACHECO WAGNER APRN A 719.46 PAIN IN JOINT INVOLVING LOWER LEG 07/26/2012 CLIFTON CORRIGAN RAFA R 599.0 URINARY TRACT INFECTION 07/26/2012 CLIFTON CORRIGAN RAFA R 719.46 PAIN IN JOINT INVOLVING LOWER LEG 07/26/2012 NELSON DO ROSANNA K 599.0 URINARY TRACT INFECTION 07/26/2012 NELSON DO ROSANNA K 719.46 PAIN IN JOINT INVOLVING LOWER LEG 07/26/2012 ASMITA HODGES APRNA L 599.0 URINARY TRACT INFECTION 07/26/2012 ASMITA HODGES APRNA L 719.46 PAIN IN JOINT INVOLVING LOWER LEG 07/26/2012 NELSON DO ROSANNA K 599.0 URINARY TRACT INFECTION 07/26/2012 NELSON DO, ROSANNA K 719.46 PAIN IN JOINT INVOLVING LOWER LEG 07/26/2012 NELSON DO, ROSANNA K 599.0 URINARY TRACT INFECTION 07/26/2012 NELSON DO, ROSANNA K 719.46 PAIN IN JOINT INVOLVING LOWER LEG 07/26/2012 NELSON DO, ROSANNA K 599.0 URINARY TRACT INFECTION 07/26/2012 NELSON DO, ROSANNA K 719.46 PAIN IN JOINT INVOLVING LOWER LEG 07/26/2012 PACHECO WAGNER APRN A 599.0 URINARY TRACT INFECTION 07/26/2012 PACHECO WAGNER APRN A 719.46 PAIN IN JOINT INVOLVING LOWER LEG 07/26/2012 NELSON DO, ROSANNA K 599.0 URINARY TRACT INFECTION 07/26/2012 NELSON DO, ROSANNA K 719.46 PAIN IN JOINT INVOLVING LOWER LEG 07/26/2012 WHITE DDS, AUSTIN D 599.0 URINARY TRACT INFECTION 07/26/2012 WHITE DDS, AUSTIN D 719.46 PAIN IN JOINT INVOLVING LOWER LEG 07/26/2012 NELSON DO, ROSANNA K 599.0 URINARY TRACT INFECTION 07/26/2012 NELSON DO, ROSANNA K 719.46 PAIN IN JOINT INVOLVING LOWER LEG 07/26/2012 ENLSON DO, ROSANNA K 599.0 URINARY TRACT INFECTION 07/26/2012 NELSON DO, ROSANNA K 719.46 PAIN IN JOINT INVOLVING LOWER LEG 07/26/2012 NELSON DO, ROSANNA K 599.0 URINARY TRACT INFECTION 07/26/2012 NELSON DO, ROSANNA K 719.46 PAIN IN JOINT INVOLVING LOWER LEG 07/26/2012 PACHECO WAGNER APRN A 599.0 URINARY TRACT INFECTION 07/26/2012 PACHECO WAGNER APRN A 719.46 PAIN IN JOINT INVOLVING LOWER LEG 07/26/2012 NELSON DO, ROSANNA K 599.0 URINARY TRACT INFECTION 07/26/2012 NELSON DO, ROSANNA K 719.46 PAIN IN JOINT INVOLVING LOWER LEG 07/26/2012 ONIEL HARRIS APRN R 599.0 URINARY TRACT INFECTION 07/26/2012 ONIEL HARRIS APRN R 719.46 PAIN IN JOINT INVOLVING LOWER LEG 08/14/2012 V01.9 EXPOSURE TO HEPATITIS C 08/14/2012 V13.02 PERSONAL HISTORY OF URINARY (TRACT) INFECTION 08/14/2012 V01.9 EXPOSURE TO HEPATITIS C 08/14/2012 V13.02 PERSONAL HISTORY OF URINARY (TRACT) INFECTION 08/14/2012 V01.9 EXPOSURE TO HEPATITIS C 08/14/2012 V13.02 PERSONAL HISTORY OF URINARY (TRACT) INFECTION 08/14/2012 V01.9 EXPOSURE TO HEPATITIS C 08/14/2012 V13.02 PERSONAL HISTORY OF URINARY (TRACT) INFECTION 08/14/2012 V01.9 EXPOSURE TO HEPATITIS C 08/14/2012 V13.02 PERSONAL HISTORY OF URINARY (TRACT) INFECTION 08/14/2012 WILY RAMIREZ MD V01.9 EXPOSURE TO HEPATITIS C 08/14/2012 WILY RAMIREZ MD V13.02 PERSONAL HISTORY OF URINARY (TRACT) INFECTION 08/14/2012 PACHECO WAGNER APRN A V01.9 EXPOSURE TO HEPATITIS C 08/14/2012 PACHECO WAGNER APRN A V13.02 PERSONAL HISTORY OF URINARY (TRACT) INFECTION 08/14/2012 NELSON DO ROSANNA K V01.9 EXPOSURE TO HEPATITIS C 08/14/2012 NELSON DO ROSANNA K V13.02 PERSONAL HISTORY OF URINARY (TRACT) INFECTION 08/14/2012 WILY RAMIREZ MD V01.9 EXPOSURE TO HEPATITIS C 08/14/2012 WILY RAMIREZ MD V13.02 PERSONAL HISTORY OF URINARY (TRACT) INFECTION 08/14/2012 PACHECO WAGNER APRN A V01.9 EXPOSURE TO HEPATITIS C 08/14/2012 PACHECO WAGNER APRN A V13.02 PERSONAL HISTORY OF URINARY (TRACT) INFECTION 08/14/2012 JASPAL LAZO APRNINA R V01.9 EXPOSURE TO HEPATITIS C 08/14/2012 JASPAL LAZO APRNINA R V13.02 PERSONAL HISTORY OF URINARY (TRACT) INFECTION 08/14/2012 NELSON DO, ROSANNA K V01.9 EXPOSURE TO HEPATITIS C 08/14/2012 NELSON DO, ROSANNA K V13.02 PERSONAL HISTORY OF URINARY (TRACT) INFECTION 08/14/2012 ASMITA HODGES APRNA L V01.9 EXPOSURE TO HEPATITIS C 08/14/2012 MADFinn CORRIGAN SIMA L V13.02 PERSONAL HISTORY OF URINARY (TRACT) INFECTION 08/14/2012 NELSON DO, ROSANNA K V01.9 EXPOSURE TO HEPATITIS C 08/14/2012 NELSON DO, ROSANNA K V13.02 PERSONAL HISTORY OF URINARY (TRACT) INFECTION 08/14/2012 NELSON DO, ROSANNA K V01.9 EXPOSURE TO HEPATITIS C 08/14/2012 NELSON DO, ROSANNA K V13.02 PERSONAL HISTORY OF URINARY (TRACT) INFECTION 08/14/2012 NELSON DO, ROSANNA K V01.9 EXPOSURE TO HEPATITIS C 08/14/2012 NELSON DO, ROSANNA K V13.02 PERSONAL HISTORY OF URINARY (TRACT) INFECTION 08/14/2012 BERNARD CONDUCTOR AND ENGINEER, PACHECO A V01.9 EXPOSURE TO HEPATITIS C 08/14/2012 BERNARD CONDUCTOR AND ENGINEER, PACHECO A V13.02 PERSONAL HISTORY OF URINARY (TRACT) INFECTION 08/14/2012 NELSON DO, ROSANNA K V01.9 EXPOSURE TO HEPATITIS C 08/14/2012 NELSON DO, ROSANNA K V13.02 PERSONAL HISTORY OF URINARY (TRACT) INFECTION 08/14/2012 WHITE DDS, AUSTIN D V01.9 EXPOSURE TO HEPATITIS C 08/14/2012 WHITE DDS, AUSTIN D V13.02 PERSONAL HISTORY OF URINARY (TRACT) INFECTION 08/14/2012 NELSON DO, ROSANNA K V01.9 EXPOSURE TO HEPATITIS C 08/14/2012 NELSON DO, ROSANNA K V13.02 PERSONAL HISTORY OF URINARY (TRACT) INFECTION 08/14/2012 NELSON DO, ROSANNA K V01.9 EXPOSURE TO HEPATITIS C 08/14/2012 NELSON DO, ROSANNA K V13.02 PERSONAL HISTORY OF URINARY (TRACT) INFECTION 08/14/2012 NELSON DO, ROSANNA K V01.9 EXPOSURE TO HEPATITIS C 08/14/2012 NELSON DO, ROSANNA K V13.02 PERSONAL HISTORY OF URINARY (TRACT) INFECTION 08/14/2012 BERNARD CONDUCTOR AND ENGINEER, PACHECO A V01.9 EXPOSURE TO HEPATITIS C 08/14/2012 BERNARD CONDUCTOR AND ENGINEER, PACHECO A V13.02 PERSONAL HISTORY OF URINARY (TRACT) INFECTION 08/14/2012 NELSON DO, ROSANNA K V01.9 EXPOSURE TO HEPATITIS C 08/14/2012 NELSON DO, ROSANNA K V13.02 PERSONAL HISTORY OF URINARY (TRACT) INFECTION 08/14/2012 CYNTHIA HARRIS APRNIA R V01.9 EXPOSURE TO HEPATITIS C 08/14/2012 ONIEL HARRIS APRN R V13.02 PERSONAL HISTORY OF URINARY (TRACT) INFECTION 08/20/2012 692.9 DERMATITIS 08/20/2012 692.9 DERMATITIS 08/20/2012 692.9 DERMATITIS 08/20/2012 692.9 DERMATITIS 08/20/2012 WILY RAMIREZ MD 692.9 DERMATITIS 08/20/2012 BERNARD CORRIGAN, PACHECO A 692.9 DERMATITIS 08/20/2012 NELSON DO, ROSANNA K 692.9 DERMATITIS 08/20/2012 WILY RAMIREZ MD 692.9 DERMATITIS 08/20/2012 BERNARD CORRIGAN, PACHECO A 692.9 DERMATITIS 08/20/2012 RAFA LAZO APRN 692.9 DERMATITIS 08/20/2012 NELSON DO, ROSANNA K 692.9 DERMATITIS 08/20/2012 SIMA HODGES APRN 692.9 DERMATITIS 08/20/2012 NELSON DO, ROSANNA K 692.9 DERMATITIS 08/20/2012 NELSON DO, ROSANNA K 692.9 DERMATITIS 08/20/2012 NELSON DO, ROSANNA K 692.9 DERMATITIS 08/20/2012 BERNARD CORRIGAN, PACHECO A 692.9 DERMATITIS 08/20/2012 NELSON DO, ROSANNA K 692.9 DERMATITIS 08/20/2012 WHITE DDS, AUSTIN D 692.9 DERMATITIS 08/20/2012 NELSON DO, ROSANNA K 692.9 DERMATITIS 08/20/2012 NELSON DO, ROSANNA K 692.9 DERMATITIS 08/20/2012 NELSON DO, ROSANNA K 692.9 DERMATITIS 08/20/2012 BERNARD CORRIGAN, PACHECO A 692.9 DERMATITIS 08/20/2012 NELSON DO, ROSANNA K 692.9 DERMATITIS 08/20/2012 ONIEL HARRIS APRN 692.9 DERMATITIS 08/28/2012 112.0 CANDIDIASIS OF MOUTH 08/28/2012 112.0 CANDIDIASIS OF MOUTH 08/28/2012 112.0 CANDIDIASIS OF MOUTH 08/28/2012 WILY RAMIREZ MD 112.0 CANDIDIASIS OF MOUTH 08/28/2012 PACHECO WAGNER APRN 112.0 CANDIDIASIS OF MOUTH 08/28/2012 NELSON DO, ROSANNA K 112.0 CANDIDIASIS OF MOUTH 08/28/2012 WILY RAMIREZ MD 112.0 CANDIDIASIS OF MOUTH 08/28/2012 PACHECO WAGNER APRN 112.0 CANDIDIASIS OF MOUTH 08/28/2012 CLIFTON CONDUCTOR AND ENGINEER, RAFA R 112.0 CANDIDIASIS OF MOUTH 08/28/2012 NELSON DO, ROSANNA K 112.0 CANDIDIASIS OF MOUTH 08/28/2012 SIMA HODGES APRN L 112.0 CANDIDIASIS OF MOUTH 08/28/2012 NELSON DO,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 Ot T78.1XXA OTH ADVERSE FOOD REACTIONS, NOT ELSEWHER 11/05/2015 BRITT ZIEGLER CONDUCTOR AND ENGINEER Ot T78.1XXA OTH ADVERSE FOOD REACTIONS, NOT ELSEWHER 11/24/2015 Ot 793.80 UNSPEC ABNORMAL MAMMOGRAM 11/24/2015 Ot V67.9 FOLLOW-UP EXAM NOS 11/24/2015 Ot V76.12 OTH SCREEN MAMMO-MALIGN NEOPLASM OF ARSLAN 11/24/2015 Ot 268.9 VITAMIN D DEFICIENCY NOS 11/24/2015 Ot 272.0 PURE HYPERCHOLESTEROLEM 11/24/2015 Ot 401.9 HYPERTENSION NOS 11/24/2015 Ot 786.59 CHEST PAIN NEC 11/24/2015 PACHECO WAGNER CONDUCTOR AND ENGINEER Ot V76.12 OTH SCREEN MAMMO-MALIGN NEOPLASM OF ARSLAN 11/24/2015 SIMA HODGES Finn MANAGER OF INTERNAL AUDIT Ot 724.02 SPINAL STENOSIS, LUMBAR REG, W/OUT NEURO 11/24/2015 DODSON ALYSSA JOHNSTON Ot Z01.818 ENCOUNTER FOR OTHER PREPROCEDURAL EXAMIN 01/07/2016 SIMA HODGES Finn MANAGER OF INTERNAL AUDIT Ot M25.512 PAIN IN LEFT SHOULDER 01/18/2016 Ot V76.12 OTH SCREEN MAMMO-MALIGN NEOPLASM OF ARSLAN 01/18/2016 Ot 268.9 VITAMIN D DEFICIENCY NOS 01/18/2016 Ot 272.0 PURE HYPERCHOLESTEROLEM 01/18/2016 Ot 401.9 HYPERTENSION NOS 01/18/2016 Ot 786.59 CHEST PAIN NEC 01/18/2016 PACHECO WAGNER APRN Ot V76.12 OTH SCREEN MAMMO-MALIGN NEOPLASM OF ARSLAN 01/18/2016 SIMA HODGES MANAGER OF INTERNAL AUDIT Ot 724.02 SPINAL STENOSIS, LUMBAR REG, W/OUT NEURO 01/18/2016 DODSONALYSSA REYES DO Blayne Ot Z01.818 ENCOUNTER FOR OTHER PREPROCEDURAL EXAMIN 01/18/2016 SIMA HODGES MANAGER OF INTERNAL AUDIT Ot M25.512 PAIN IN LEFT SHOULDER 02/04/2016 WILLA WARREN MD Ot I10 ESSENTIAL (PRIMARY) HYPERTENSION 02/04/2016 WILLA WARREN MD Ot M54.16 RADICULOPATHY, LUMBAR REGION 02/04/2016 WILLA WARREN MD Ot M54.5 LOW BACK PAIN 02/04/2016 WILLA WARREN MD Ot N39.0 URINARY TRACT INFECTION, SITE NOT SPECIF 02/04/2016 WILLA WARREN MD Ot Z79.899 OTHER GROUP HOME (CURRENT) DRUG THERAPY 02/05/2016 WILLA WARREN MD Ot I10 ESSENTIAL (PRIMARY) HYPERTENSION 02/05/2016 WILLA WARREN MD Ot M54.16 RADICULOPATHY, LUMBAR REGION 02/05/2016 WILLA WARREN MD Ot M54.5 LOW BACK PAIN 02/05/2016 WILLA WARREN MD Ot N39.0 URINARY TRACT INFECTION, SITE NOT SPECIF 02/05/2016 WILLA WARREN MD Ot Z79.899 OTHER GROUP HOME (CURRENT) DRUG THERAPY 02/09/2016 WILLA WARREN MD Ot I10 ESSENTIAL (PRIMARY) HYPERTENSION 02/09/2016 WILLA WARREN MD Ot M54.16 RADICULOPATHY, LUMBAR REGION 02/09/2016 WILAL WARREN MD Ot M54.5 LOW BACK PAIN 02/09/2016 WILLA WARREN MD Ot N39.0 URINARY TRACT INFECTION, SITE NOT SPECIF 02/09/2016 WILLA WARREN MD Ot Z79.899 OTHER HIDE SELECTOR (CURRENT) DRUG THERAPY 02/11/2016 WILLA WARREN MD Ot I10 ESSENTIAL (PRIMARY) HYPERTENSION 02/11/2016 WILLA WARREN MD Ot M54.16 RADICULOPATHY, LUMBAR REGION 02/11/2016 WILLA WARREN MD Ot M54.5 LOW BACK PAIN 02/11/2016 WILLA WARREN MD Ot N39.0 URINARY TRACT INFECTION, SITE NOT SPECIF 02/11/2016 WILLA WARREN MD Ot Z79.899 OTHER HIDE SELECTOR (CURRENT) DRUG THERAPY 02/29/2016 Ot V76.12 OTH SCREEN MAMMO-MALIGN NEOPLASM OF ARSLAN 02/29/2016 Ot 268.9 VITAMIN D DEFICIENCY NOS 02/29/2016 Ot 272.0 PURE HYPERCHOLESTEROLEM 02/29/2016 Ot 401.9 HYPERTENSION NOS 02/29/2016 Ot 786.59 CHEST PAIN NEC 02/29/2016 PACHECO WAGNER CONDUCTOR AND ENGINEER Ot V76.12 OTH SCREEN MAMMO-MALIGN NEOPLASM OF ARSLAN 02/29/2016 MADL, SIMA L MANAGER OF INTERNAL AUDIT Ot 724.02 SPINAL STENOSIS, LUMBAR REG, W/OUT NEURO 02/29/2016 ALYSSA DODSON DO Ot Z01.818 ENCOUNTER FOR OTHER PREPROCEDURAL EXAMIN 02/29/2016 MADL, SIMA L MANAGER OF INTERNAL AUDIT Ot M25.512 PAIN IN LEFT SHOULDER 03/02/2016 Ot V76.12 OTH SCREEN MAMMO-MALIGN NEOPLASM OF ARSLAN 03/02/2016 Ot 268.9 VITAMIN D DEFICIENCY NOS 03/02/2016 Ot 272.0 PURE HYPERCHOLESTEROLEM 03/02/2016 Ot 401.9 HYPERTENSION NOS 03/02/2016 Ot 786.59 CHEST PAIN NEC 03/02/2016 PACHECO WAGNER APRN Ot V76.12 OTH SCREEN MAMMO-MALIGN NEOPLASM OF ARSLAN 03/02/2016 MADL, SIMA L MANAGER OF INTERNAL AUDIT Ot 724.02 SPINAL STENOSIS, LUMBAR REG, W/OUT NEURO 03/02/2016 ALYSSA DODSON DO Ot Z01.818 ENCOUNTER FOR OTHER PREPROCEDURAL EXAMIN 03/02/2016 MADL, SIMA L MANAGER OF INTERNAL AUDIT Ot M25.512 PAIN IN LEFT SHOULDER 03/16/2016 WILLA WARREN MD, Ot I10 ESSENTIAL (PRIMARY) HYPERTENSION 03/16/2016 WILLA WARREN MD, Ot M54.16 RADICULOPATHY, LUMBAR REGION 03/16/2016 WILLA WARREN MD, Ot M54.5 LOW BACK PAIN 03/16/2016 WILLA WARREN MD Ot N39.0 URINARY TRACT INFECTION, SITE NOT SPECIF 03/16/2016 WILLA WARREN MD, Ot Z79.899 OTHER GROUP HOME (CURRENT) DRUG THERAPY 03/17/2016 OTHER, UNLISTED Ot M75.82 OTHER SHOULDER LESIONS, LEFT SHOULDER 03/17/2016 OTHER, UNLISTED Ot M75.82 OTHER SHOULDER LESIONS, LEFT SHOULDER 05/18/2016 OTHER, UNLISTED Ot M75.82 OTHER SHOULDER LESIONS, LEFT SHOULDER 05/21/2016 WILLA WARREN MD, Ot I10 ESSENTIAL (PRIMARY) HYPERTENSION 05/21/2016 WILLA WARREN MD, Ot T78.1XXA OTH ADVERSE FOOD REACTIONS, NOT ELSEWHER 05/21/2016 WILLA WARREN MD Ot Z79.899 OTHER HIDE SELECTOR (CURRENT) DRUG THERAPY 05/21/2016 WILLA WARREN MD Ot Z91.02 FOOD ADDITIVES ALLERGY STATUS 05/24/2016 WILLA WARREN MD Ot I10 ESSENTIAL (PRIMARY) HYPERTENSION 05/24/2016 WILLA WARREN MD Ot T78.1XXA OTH ADVERSE FOOD REACTIONS, NOT ELSEWHER 05/24/2016 WILLA WARREN MD Ot Z79.899 OTHER HIDE SELECTOR (CURRENT) DRUG THERAPY 05/24/2016 WILLA WARREN MD Ot Z91.02 FOOD ADDITIVES ALLERGY STATUS 06/06/2016 BRITT ZIEGLER APRN Ot I10 ESSENTIAL (PRIMARY) HYPERTENSION 06/06/2016 BRITT ZIEGLER APRN Ot R22.0 LOCALIZED SWELLING, MASS AND LUMP, HEAD 06/06/2016 BRITT ZIEGLER APRN Ot T78.3XXA ANGIONEUROTIC EDEMA, INITIAL ENCOUNTER 06/06/2016 BRITT ZIEGLER APRN Ot Z79.899 OTHER HIDE SELECTOR (CURRENT) DRUG THERAPY 06/07/2016 BRITT ZIEGLER APRN Ot I10 ESSENTIAL (PRIMARY) HYPERTENSION 06/07/2016 BRITT ZIEGLER CONDUCTOR AND ENGINEER Ot R22.0 LOCALIZED SWELLING, MASS AND LUMP, HEAD 06/07/2016 BRITT ZIEGLER CONDUCTOR AND ENGINEER Ot T78.3XXA ANGIONEUROTIC EDEMA, INITIAL ENCOUNTER 06/07/2016 BRITT ZIEGLER CONDUCTOR AND ENGINEER Ot Z79.899 OTHER HIDE SELECTOR (CURRENT) DRUG THERAPY 06/18/2016 BRITT ZIEGLER CONDUCTOR AND ENGINEER Ot D25.9 LEIOMYOMA OF UTERUS, UNSPECIFIED 06/18/2016 BRITT ZIEGLER CONDUCTOR AND ENGINEER Ot I10 ESSENTIAL (PRIMARY) HYPERTENSION 06/18/2016 BRITT ZIEGLER CONDUCTOR AND ENGINEER Ot M54.5 LOW BACK PAIN 06/18/2016 BRITT ZIEGLER APRN Ot R35.0 FREQUENCY OF MICTURITION 06/18/2016 BRITT ZIEGLER CONDUCTOR AND ENGINEER Ot R93.8 ABNORMAL FINDINGS ON DIAGNOSTIC IMAGING 06/18/2016 BRITT ZIEGLER APRN Ot Z79.899 OTHER HIDE SELECTOR (CURRENT) DRUG THERAPY 06/23/2016 Ot 268.9 VITAMIN D DEFICIENCY NOS 06/23/2016 Ot 272.0 PURE HYPERCHOLESTEROLEM 06/23/2016 Ot 401.9 HYPERTENSION NOS 06/23/2016 Ot 786.59 CHEST PAIN NEC 06/23/2016 PACHECO WAGNER CONDUCTOR AND ENGINEER Ot V76.12 OTH SCREEN MAMMO-MALIGN NEOPLASM OF ARSLAN 06/23/2016 SIMA HODGES MANAGER OF INTERNAL AUDIT Ot 724.02 SPINAL STENOSIS, LUMBAR REG, W/OUT NEURO 06/23/2016 ALYSSA DODSON DO Ot Z01.818 ENCOUNTER FOR OTHER PREPROCEDURAL EXAMIN 06/23/2016 SIMA HODGES MANAGER OF INTERNAL AUDIT Ot M25.512 PAIN IN LEFT SHOULDER 06/24/2016 RICARDO MEZA DO Ot I10 ESSENTIAL (PRIMARY) HYPERTENSION 06/24/2016 RICARDO MEZA DO Ot L50.9 URTICARIA, UNSPECIFIED 06/24/2016 RICARDO MEZA DO Ot R21 RASH AND OTHER NONSPECIFIC SKIN ERUPTION 06/24/2016 RICARDO MEZA DO Ot T42.8X5A ADVERSE EFFECT OF ANTIPARKNS DRUG/CENTR 06/24/2016 RICARDO MEZA DO Ot Z79.899 OTHER GROUP HOME (CURRENT) DRUG THERAPY 06/27/2016 RICARDO MEZA DO Ot I10 ESSENTIAL (PRIMARY) HYPERTENSION 06/27/2016 RICARDO MEZA DO Ot L50.9 URTICARIA, UNSPECIFIED 06/27/2016 RICARDO MEZA DO Ot R21 RASH AND OTHER NONSPECIFIC SKIN ERUPTION 06/27/2016 RICARDO MEZA DO Ot T42.8X5A ADVERSE EFFECT OF ANTIPARKNS DRUG/CENTR 06/27/2016 RICARDO MEZA DO Ot Z79.899 OTHER HIDE SELECTOR (CURRENT) DRUG THERAPY 07/05/2016 Ot 268.9 VITAMIN D DEFICIENCY NOS 07/05/2016 Ot 272.0 PURE HYPERCHOLESTEROLEM 07/05/2016 Ot 401.9 HYPERTENSION NOS 07/05/2016 Ot 786.59 CHEST PAIN NEC 07/05/2016 PACHECO WAGNER APRN Ot V76.12 OTH SCREEN MAMMO-MALIGN NEOPLASM OF ARSLAN 07/05/2016 SIMA HODGES MANAGER OF INTERNAL AUDIT Ot 724.02 SPINAL STENOSIS, LUMBAR REG, W/OUT NEURO 07/05/2016 ALYSSA DODSON DO Ot Z01.818 ENCOUNTER FOR OTHER PREPROCEDURAL EXAMIN 07/05/2016 SIMA HODGES MANAGER OF INTERNAL AUDIT Ot M25.512 PAIN IN LEFT SHOULDER 07/06/2016 WILLA WARREN MD, Ot I10 ESSENTIAL (PRIMARY) HYPERTENSION 07/06/2016 WILLA WARREN MD Ot T78.1XXA OTH ADVERSE FOOD REACTIONS, NOT ELSEWHER 07/06/2016 WILLA WARREN MD Ot Z79.899 OTHER GROUP HOME (CURRENT) DRUG THERAPY 07/06/2016 WILLA WARREN MD Ot Z91.02 FOOD ADDITIVES ALLERGY STATUS 07/06/2016 BRITT ZIEGLER APRN Ot D25.9 LEIOMYOMA OF UTERUS, UNSPECIFIED 07/06/2016 BRITT ZIEGLER APRN Ot I10 ESSENTIAL (PRIMARY) HYPERTENSION 07/06/2016 BRITT ZIEGLER APRN Ot M54.5 LOW BACK PAIN 07/06/2016 BRITT ZIEGLER APRN Ot R35.0 FREQUENCY OF MICTURITION 07/06/2016 BRITT ZIEGLER APRN Ot R93.8 ABNORMAL FINDINGS ON DIAGNOSTIC IMAGING 07/06/2016 BRITT ZIEGLER APRN Ot Z79.899 OTHER GROUP HOME (CURRENT) DRUG THERAPY 07/11/2016 OBDULIA MCCOY MD Ot I10 ESSENTIAL (PRIMARY) HYPERTENSION 07/11/2016 OBDULIA MCCOY MD Ot L50.9 URTICARIA, UNSPECIFIED 07/11/2016 OBDULIA MCCOY MD Ot T78.3XXA ANGIONEUROTIC EDEMA, INITIAL ENCOUNTER 07/11/2016 OBDULIA MCCOY MD Ot Z79.899 OTHER HIDE SELECTOR (CURRENT) DRUG THERAPY 07/12/2016 OBDULIA MCCOY MD Ot I10 ESSENTIAL (PRIMARY) HYPERTENSION 07/12/2016 OBDULIA MCCOY MD Ot L50.9 URTICARIA, UNSPECIFIED 07/12/2016 OBDULIA MCCOY MD Ot T78.3XXA ANGIONEUROTIC EDEMA, INITIAL ENCOUNTER 07/12/2016 OBDULIA MCCOY MD Ot Z79.899 OTHER GROUP HOME (CURRENT) DRUG THERAPY 07/21/2016 MADLSIMA Finn MANAGER OF INTERNAL AUDIT Ot M25.512 PAIN IN LEFT SHOULDER 07/22/2016 OBDULIA MCCOY MD Ot I10 ESSENTIAL (PRIMARY) HYPERTENSION 07/22/2016 OBDULIA MCCOY MD Ot L50.9 URTICARIA, UNSPECIFIED 07/22/2016 OBDULIA MCCOY MD Ot T78.3XXA ANGIONEUROTIC EDEMA, INITIAL ENCOUNTER 07/22/2016 OBDULIA MCCOY MD Ot Z79.899 OTHER GROUP HOME (CURRENT) DRUG THERAPY 08/03/2016 OBDULIA MCCOY MD Ot H92.01 OTALGIA, RIGHT EAR 08/03/2016 OBDULIA MCCOY MD Ot I10 ESSENTIAL (PRIMARY) HYPERTENSION 08/03/2016 OBDULIA MCCOY MD Ot R22.0 LOCALIZED SWELLING, MASS AND LUMP, HEAD 08/03/2016 OBDULIA MCCOY MD Ot T78.3XXA ANGIONEUROTIC EDEMA, INITIAL ENCOUNTER 08/03/2016 OBDULIA MCCOY MD Ot Z79.899 OTHER GROUP HOME (CURRENT) DRUG THERAPY 08/03/2016 OBDULIA MCCOY MD Ot Z91.010 ALLERGY TO PEANUTS Procedures Code Description [place] [address] UA W/ CULTURE IF INDICATED 03/23/2012 96452 CULTURE URINE 97096 HEMOCCULT 2012 49485 UA W/ CULTURE IF INDICATED 05/07/2012 86799 TRICHOMONAS (IN-HOUSE) 05/07/2012 48520 MAMMOGRAM, SCREENING 05/08/2012 24321 CULTURE UROGENITAL 05/08/2012 18216 GC/CHLAM PROBE (STATE) 05/08/2012 83421 PAP SMEAR 2012 Q0091 PAP SMEAR OBTAIN SMEAR 05/08/2012 43653 ROUTINE VENIPUNCTURE 05/10/2012 65809 A1C (IN-HOUSE) 39302 CBC 05/10/2012 18508 CMP 05/10/2012 24793 LIPID PANEL 05/10 [id number] GFR CALC (RESULT ONLY) 05/10/2012 91442 VITAMIN D 25-HYDROXY (D2,D3, TOTAL) 05/11/2012 46000 TSH 05/11/2012 32104 STRESS ECHO 05/15 75271 COLP W/ ECC 06/07 07453 URINE TEST (IN-HOUSE) 06/07/2012 75000 CULTURE UROGENITAL 07/12/2012 45155 UA W/ CULTURE IF INDICATED 07/26/2012 32480 JOINT INJECTION- LARGE JOINT (SPECIFY MEDCIN DESCRIPTION) 07/26/2012 32304 XRAY KNEE RIGHT 1 OR 2 VIEWS 07/26/2012 54396 CULTURE URINE 49946 ROUTINE VENIPUNCTURE 08/14/2012 98782 UA W/ CULTURE IF INDICATED 08/14/2012 84708 HIV ANTIBODIES (RML) 08/15/2012 36897 SYPHILLIS-STATE [facility] 08/16/2012 58162 HEP C ANTIBODY ([facility]) 08/16/2012 19685 CULTURE URINE 01/2013 81715 UA W/ CULTURE IF INDICATED 08/28/2012 13856 CULTURE URINE 00886 UA W/ CULTURE IF INDICATED 09/05/2012 80759 PAP SMEAR 2012 Q0091 PAP SMEAR OBTAIN SMEAR 01/08/2013 03464 CMP 01/17/2013 31552 LIPID PANEL 01/17 47865 UA W/ CULTURE IF INDICATED 01/17/2013 66601 GC/CHLAM PROBE (STATE) 04/18/2013 14929 TRICHOMONAS (IN-HOUSE) 04/18/2013 79542 CULTURE UROGENITAL 04/21/2013 60564 XRAY SHOULDER RIGHT COMP 2 VIEWS 08/19/2013 67435 ROUTINE VENIPUNCTURE 09/30/2013 93907 JOINT INJECTION- LARGE JOINT (SPECIFY MEDCIN DESCRIPTION) 09/30/2013 70524 SYPHILLIS-[facility] 09/30/2013 59328 HIV ([facility]) 09/30/2013 [id number] GFR CALC (RESULT ONLY) 09/30/2013 88470 CMP 09/30/2013 20700 LIPID PANEL 09/30 25925 GC/CHLAM PROBE (STATE) 10/02/2013 92267 TRICHOMONAS (IN-HOUSE) 10/02/2013 48619 CULTURE UROGENITAL 10/03/2013 30258 ROUTINE VENIPUNCTURE 01/08/2014 86585 LIPID PANEL 01/08 BLOOD PRESSURE CHECK 01/09/2014 BLOOD PRESSURE CHECK 01/10/2014 BLOOD PRESSURE CHECK 01/14/2014 BLOOD PRESSURE CHECK 02/12/2014 Results Test Result Range Complete urinalysis with reflex to culture - 02/04/16 11:52 Urine color determination YELLOW NRG Urine clarity determination SLIGHTLY CLOUDY NRG Urine pH measurement by test strip 6 5- 9 Specific gravity of urine by test strip 1.020 1.016-1.022 Urine protein assay by test strip, semi-quantitative 1+ NEGATIVE Urine glucose detection by automated test strip NEGATIVE NEGATIVE Erythrocytes detection in urine sediment by light microscopy 1+ NEGATIVE Urine ketones detection by automated test strip NEGATIVE NEGATIVE Urine nitrite detection by test strip NEGATIVE NEGATIVE Urine total bilirubin detection by test strip NEGATIVE NEGATIVE Urine urobilinogen measurement by automated test strip (mass/volume) NORMAL NORMAL Urine leukocyte esterase detection by dipstick 3+ NEGATIVE Automated urine sediment erythrocyte count by microscopy (number/high power field) NONE NRG Automated urine sediment leukocyte count by microscopy (number/high power field ) [HPF] NRG Bacteria detection in urine sediment by light microscopy FEW NRG Squamous epithelial cells detection in urine sediment by light microscopy 10- NRG Crystals detection in urine sediment by light microscopy NONE NRG Casts detection in urine sediment by light microscopy NONE NRG Mucus detection in urine sediment by light microscopy NEGATIVE NRG Complete urinalysis with reflex to culture YES NRG Bacterial urine culture - 02/04/16 11:52 Bacterial urine culture [id number] NRG COLONY COUNT >100,000/ML NRG FREE TEXT ENTRY 3 MIXED GRAM POSITIVE BRADLEY <10,000/ML NRG Serum or plasma complement C1 esterase inhibitor measurement (mass/volume) - 11:03 Complement C1 esterase inhibitor measurement 111 % 31-67 Complement C4 [mass/volume] in serum or plasma - 06/06/16 11:03 Complement C4 [mass/volume] in serum or plasma 51 % 15-59 Functional complement C1 esterase inhibitor measurement - 06/06/16 11:03 C1 esterase inhibitor functional 107 % >= 40 Complete blood count (CBC) with automated white blood cell (WBC) differential - 06/18/16 11:21 Blood leukocytes automated count (number/volume) 4.7 10*3/ uL 4.3-11.0 Blood erythrocytes automated count (number/volume) 5.13 10*6 /uL 4.35-5.85 Venous blood hemoglobin measurement (mass/volume) 14.3 g/dL 11.5-16.0 Blood hematocrit (volume fraction) 43 % 35-52 Automated erythrocyte mean corpuscular volume 84 [foz_us] 80-99 Automated erythrocyte mean corpuscular hemoglobin (mass per erythrocyte) 28 pg 25-34 Automated erythrocyte mean corpuscular hemoglobin concentration measurement ( mass/volume) 33 g/dL 32-36 Automated erythrocyte distribution width ratio 14.0 % 10.0-14.5 Automated blood platelet count (count/volume) 300 10*3/uL 130-400 Automated blood platelet mean volume measurement 10.6 [foz_ us] 7.4-10.4 Automated blood neutrophils/100 leukocytes 63 % 42-75 Automated blood lymphocytes/100 leukocytes 27 % 12-44 Blood monocytes/100 leukocytes 8 % 0-12 Automated blood eosinophils/100 leukocytes 2 % 0-10 Automated blood basophils/100 leukocytes 0 % 0-10 Blood neutrophils automated count (number/volume) 3.0 10*3 1.8-7.8 Blood lymphocytes automated count (number/volume) 1.3 10*3 1.0-4.0 Blood monocytes automated count (number/volume) 0.4 10*3 0.0-1.0 Automated eosinophil count 0.1 10*3/uL 0.0-0.3 Automated blood basophil count (count/volume) 0.0 10*3/uL 0.0-0.1 Comprehensive metabolic panel - 06/18/16 11:21 Serum or plasma sodium measurement (moles/volume) 140 mmol/ L 135-145 Serum or plasma potassium measurement (moles/volume) 3.8 mmol/L 3.6-5.0 Serum or plasma chloride measurement (moles/volume) 103 mmol /L 98-107 Carbon dioxide 25 mmol/L 21-32 Serum or plasma anion gap determination (moles/volume) 12 mmol/L 5-14 Serum or plasma urea nitrogen measurement (mass/volume) 9 mg /dL 7-18 Serum or plasma creatinine measurement (mass/volume) 0.77 mg /dL 0.60-1.30 Serum or plasma urea nitrogen/creatinine mass ratio 12 NRG Serum or plasma creatinine measurement with calculation of estimated glomerular filtration rate > NRG Serum or plasma glucose measurement (mass/volume) 113 mg/dL 70-105 Serum or plasma calcium measurement (mass/volume) 10.3 mg/ dL 8.5-10.1 Serum or plasma total bilirubin measurement (mass/volume) 0.4 mg/dL 0.1-1.0 Serum or plasma alkaline phosphatase measurement (enzymatic activity/volume) 110 U/L 40-136 Serum or plasma aspartate aminotransferase measurement (enzymatic activity/ volume) 18 U/L 5-34 Serum or plasma alanine aminotransferase measurement (enzymatic activity/volume ) 17 U/L 0-55 Serum or plasma protein measurement (mass/volume) 7.9 g/dL 6.4-8.2 Serum or plasma albumin measurement (mass/volume) 4.7 g/dL 3.2-4.5 Complete urinalysis with reflex to culture - 06/18/16 11:28 Urine color determination YELLOW NRG Urine clarity determination CLEAR NRG Urine pH measurement by test strip 7 5- 9 Specific gravity of urine by test strip 1.010 1.016-1.022 Urine protein assay by test strip, semi-quantitative NEGATIVE NEGATIVE Urine glucose detection by automated test strip NEGATIVE NEGATIVE Erythrocytes detection in urine sediment by light microscopy NEGATIVE NEGATIVE Urine ketones detection by automated test strip NEGATIVE NEGATIVE Urine nitrite detection by test strip NEGATIVE NEGATIVE Urine total bilirubin detection by test strip NEGATIVE NEGATIVE Urine urobilinogen measurement by automated test strip (mass/volume) NORMAL NORMAL Urine leukocyte esterase detection by dipstick 1+ NEGATIVE Automated urine sediment erythrocyte count by microscopy (number/high power field) NONE NRG Automated urine sediment leukocyte count by microscopy (number/high power field ) RARE NRG Bacteria detection in urine sediment by light microscopy NEGATIVE NRG Squamous epithelial cells detection in urine sediment by light microscopy RARE NRG Crystals detection in urine sediment by light microscopy NONE NRG Casts detection in urine sediment by light microscopy NONE NRG Mucus detection in urine sediment by light microscopy NEGATIVE NRG Complete urinalysis with reflex to culture NO NRG Encounters ACCT No. Visit Date/Time Discharge Status Pt. Type Provider Facility Loc./Unit Complaint [id number] 08/04/2014 12:26:00 08/04/2014 23: 59:59 CLS Outpatient KIMBERLY ANDREWSNONIEL Shilpa [id number] 07/04/2014 10:25:00 07/04/2014 23: 59:59 CLS Outpatient ROSANNA NELSON DO [id number] 05/01/2014 12:49:00 05/01/2014 23: 59:59 CLS Outpatient PACHECO WAGNER APRN [id number] 02/14/2014 16:33:00 02/14/2014 23: 59:59 CLS Outpatient ROSANNA NELSON DO [id number] 02/12/2014 14:55:00 02/12/2014 23: 59:59 CLS Outpatient ROSANNA NELSON DO [id number] 01/14/2014 13:15:00 01/14/2014 23: 59:59 CLS Outpatient ROSANNA NELSON DO [id number] 10/18/2013 15:55:00 10/18/2013 23: 59:59 CLS Outpatient AUSTIN ROBERT DDS [id number] 10/18/2013 10:23:00 10/18/2013 23: 59:59 CLS Outpatient ROSANNA NELSON DO [id number] 10/02/2013 11:02:00 10/02/2013 23: 59:59 CLS Outpatient PACHECO WAGNER APRN [id number] 09/30/2013 08:46:00 09/30/2013 23: 59:59 CLS Outpatient ROSANNA NELSON DO [id number] 08/26/2013 09:09:00 08/26/2013 23: 59:59 CLS Outpatient ROSANNA NELSON DO [id number] 08/19/2013 16:35:00 08/19/2013 23: 59:59 CLS Outpatient ROSANNA NELSON DO [id number] 08/16/2013 15:51:00 08/16/2013 23: 59:59 CLS Outpatient SIMA HODGES APRN [id number] 08/12/2013 10:59:00 08/12/2013 23: 59:59 CLS Outpatient NELSON ROSANNA [id number] 07/11/2013 15:04:00 07/11/2013 23: 59:59 CLS Outpatient CLIFTON RAFA CORRIGAN Shilpa [id number] 04/18/2013 09:21:00 04/18/2013 23: 59:59 CLS Outpatient BERNARD ANDREWSPACHECO Miller [id number] 03/06/2013 10:48:00 03/06/2013 23: 59:59 CLS Outpatient WILY RAMIREZ MD [id number] 01/17/2013 12:09:00 01/17/2013 23: 59:59 CLS Outpatient ROSANNA NELSON DO [id number] 01/08/2013 09:42:00 01/08/2013 23: 59:59 CLS Outpatient BERNARDPACHECO Miller APRN [id number] 11/24/2012 14:17:00 11/24/2012 23: 59:59 CLS Outpatient WILY RAMIREZ MD [id number] 07/09/2012 15:13:00 07/09/2012 23: 59:59 CLS Outpatient ROSANNA NELSON DO [id number] 06/27/2012 09:40:00 06/27/2012 23: 59:59 CLS Outpatient [id number] 06/07/2012 08:32:00 06/07/2012 23: 59:59 CLS Outpatient NGOC COREAS MD, BARTOLOME Willis [id number] 05/14/2012 15:06:00 05/14/2012 23: 59:59 CLS Outpatient ROSANNA NELSON DO [id number] 05/10/2012 08:31:00 05/10/2012 23: 59:59 CLS Outpatient NASRA RUVALCABA MD [id number] 05/07/2012 16:06:00 05/07/2012 23: 59:59 CLS Outpatient [id number] 03/23/2012 16:21:00 03/23/2012 23: 59:59 CLS Outpatient [id number] 02/29/2012 11:17:00 02/29/2012 23: 59:59 CLS Outpatient ROSANNA NELSON DO [id number] 02/29/2012 11:17:00 02/29/2012 23: 59:59 [facility] ROSANNA NELSON DO [id number] 11/21/2012 10:33:00 Document Registration [id number] 09/05/2012 14:23:00 Document Registration [id number] 08/28/2012 14:50:00 Document Registration [id number] 08/20/2012 12:38:00 Document Registration [id number] 08/16/2012 18:28:00 Document Registration [id number] 07/26/2012 10:41:00 Document Registration
--- OUTSIDE RECORDS SUMMARY | 2016-08-14 04:54 | XMS REPORT ---
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
--- OUTSIDE RECORDS SUMMARY | 2016-08-14 04:54 | XMS REPORT ---
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
--- OUTSIDE RECORDS SUMMARY | 2016-08-14 04:54 | XMS REPORT ---
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 must last 4 weeks APPT NEEDED FOR REFILL 1 tablet as needed Results No Known Results Summary Purpose eClinicalWorks Submission
--- OUTSIDE RECORDS SUMMARY | 2016-08-14 04:54 | XMS REPORT ---
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 Active Problem Neck pain M54.2 Active Problem Anxiety F41.9 Active Problem Hypokalemia E87.6 Active Problem Constipation K59.00 Active Problem Abnormal fasting glucose R73.09 Active Problem Hyperlipidemia LDL goal <160 E78.5 Active Problem 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 Active Problem Essential hypertension I10 Active Problem Mixed hyperlipidemia E78.2 Active Assessment Abnormal fasting glucose R73.09 Active Assessment Essential hypertension I10 Active Assessment Constipation K59.00 Active Assessment Neck pain M54.2 Active Assessment Hypokalemia E87.6 Active Assessment Mixed hyperlipidemia E78.2 Active Medications Medication Code System Code Instructions Start Date End Date Status Dosage Chlorthalidone [facility] [address]-39 25 MG Once a day 2 tablets potassium NDC 0 Oral 1 tab Cyclobenzaprine HCl [facility] [address]-16 10 MG Orally Three times a day prn 1 tablet Hydrocodone-Acetaminophen [facility] [address]-95 5-325 MG Orally 3 -4 times a day prn 1 tablet as needed Pravastatin Sodium [facility] [address]-16 40 MG Orally Once a day TAKE ONE TABLET BY MOUTH AT BEDTIME HydrOXYzine HCl [facility] [address]-72 10 mg July 04, 2014 1 tablet by Oral route 4-6 times per day PRN Fish Oil [facility] [address]-89 1000 MG Orally Once a day 1 capsule Meclizine HCl [facility] [address]-80 25 MG Orally Once a day 1 tablet as needed Amlodipine Besylate [facility] [address]-00 5 MG Orally Once a day November 01, 2014 1 tablet Procedures Procedure Coding System Code Date Office Visit, Est Pt., Level 4 CPT-4 90163 Mar 03, 2015 Vital Signs Date/Time: Mar 03, 2015 Temperature 97.0 F Weight 171.0 lbs Height 62 in BMI 31.27 Index Blood Pressure Diastolic 78 mmHg Blood Pressure Systolic 130 mmHg Results No Known Results Summary Purpose eClinicalWorks Submission
--- OUTSIDE RECORDS SUMMARY | 2016-08-14 04:54 | XMS REPORT ---
Author Author ONIEL HARRIS [facility] Address [address] [place] [address] Care Team Providers Care Farm Machinery Mechanic Name Role Phone ONIEL HARRIS Unavailable PROBLEMS Type Condition ICD9-CM Code [id number] Code Onset Dates Condition Status SNOMED Code Problem Mixed hyperlipidemia E78.2 Active 34194455 Problem Constipation K59.00 Active 34854288 Problem Essential hypertension I10 Active 48485942 Problem 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 Active 175190085 Problem Acute stress disorder F43.0 Active 68562213 Problem Abnormal fasting glucose R73.09 Active 382255010 Problem Hypokalemia E87.6 Active 83375409 Problem Dysuria R30.0 Active 02617056 Problem Hematuria R31.9 Active 97882968 Problem Anxiety F41.9 Active 51893157 Problem Neck pain M54.2 Active 34472432 Assessment Acute pain of left shoulder M25.512 Dec, Active 73407702 Problem 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 Active 290880592382 Problem Abnormal mammogram R92.8 Active 018490656 Problem Hyperlipidemia LDL goal <160 E78.5 Active 45927505 ALLERGIES Substance Reaction Event Type Date Status Macrobid rash Drug Allergy Dec, Active Cipro hives Drug Allergy Dec, Active Amitriptyline HCl dizziness Drug Allergy Dec, Active Peanut Unknown Non Drug Allergy Dec, Active SOCIAL HISTORY No smoking Hx information available PLAN OF CARE VITAL SIGNS Height 62 in 2015-12-16 Weight 174.5 lbs 2015-12-16 Heart Rate 78 bpm 2015-12-16 Respiratory Rate 20 2015-12-16 BMI 31.91 kg/m2 2015-12-16 Blood pressure systolic 135 mmHg 2015-12-16 Blood pressure diastolic 78 mmHg 2015-12-16 MEDICATIONS Medication Instructions Dosage Frequency Start Date End Date Duration Status Tramadol HCl 50 MG Orally every 6 hrs 1 tablet as needed 6h Active Cyclobenzaprine HCl 10 MG orally tid prn 1 tablet Active Klor-Con 10 10 MEQ Orally Once a day 2 tablet with food 24h Active Amlodipine Besylate 5 MG Orally Once a day 1 tablet 24h Active Pravastatin Sodium 20 MG TAKE ONE TABLET BY MOUTH AT BEDTIME 30 Active Fish Oil 1000 MG Orally Once a day 1 capsule 24h Active Hydrocodone-Acetaminophen 5-325 MG Orally 3 -4 times a day prn. must last 4 weeks 1 tablet as needed Active Triamterene-HCTZ 37.5-25 MG Orally Once a day 1 tablet in the morning 24h Active Meclizine HCl 25 MG Orally Once a day 1 tablet as needed 24h Active RESULTS Name Result Date Reference Range Xray : Shoulder, Left 2 view (IN HOUSE) 2015-12-16 PROCEDURES Procedure Date Ordered Related Diagnosis Body Site X-RAY EXAM OF SHOULDER Dec 16, 2015 Office Visit, Est Pt., Level 3 Dec 16, 2015 IMMUNIZATIONS No Known Immunizations
--- OUTSIDE RECORDS SUMMARY | 2016-08-14 04:55 | XMS REPORT ---
Author Author SIMA HODGES Organization eClinicalWorks Address Unknown Phone Unavailable Care Team Providers Care Respiratory Therapy Technician Name Role Phone SIMA HODGES CP Unavailable Allergies No Known Allergies Problems Problem Type Condition Code Onset Dates Condition Status Problem Essential hypertension I10 Active Problem Hypokalemia E87.6 Active Problem Constipation K59.00 Active Problem Acute cystitis without hematuria N30.00 Active Problem 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 Active Problem Abnormal MRI, shoulder R93.8 Active Problem Hematuria R31.9 Active Problem Abnormal fasting glucose R73.09 Active Problem Acute stress disorder F43.0 Active Problem Dysuria R30.0 Active Problem Neck pain M54.2 Active Problem 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
--- OUTSIDE RECORDS SUMMARY | 2016-08-14 04:55 | XMS REPORT ---
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 Active Problem Hematuria R31.9 Active Problem Abnormal fasting glucose R73.09 Active Problem Dysuria R30.0 Active Problem Essential hypertension I10 Active Problem Mixed hyperlipidemia E78.2 Active Problem Hypokalemia E87.6 Active Problem Constipation K59.00 Active Assessment Neck pain M54.2 Active Assessment 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 must last 4 weeks 1 tablet as needed Klor-Con 10 [facility] [address]-21 10 MEQ Orally Once a day 2 tablet with food Fish Oil [facility] [address]-14 1000 MG Orally Once a day 1 capsule Cyclobenzaprine HCl [facility] 91901526549 10 MG orally tid prn 1 tablet Tramadol HCl [facility] [address]-84 50 MG Orally every 6 hrs 1 tablet as needed Amlodipine Besylate [facility] [address]-88 5 MG Orally Once a day 1 tablet Pravastatin Sodium [facility] [address]-25 20 MG Orally Once a day TAKE ONE TABLET BY MOUTH AT BEDTIME Procedures Procedure Coding System Code Date Office Visit, Est Pt., Level 4 CPT-4 36871 August 04, 2015 Vital Signs Date/Time: August 04, 2015 Temperature 97.6 F Weight 172.6 lbs Height 62 in BMI 31.57 Index Blood Pressure Diastolic 74 mmHg Blood Pressure Systolic 128 mmHg Cardiac Monitoring Heart Rate 84 bpm Results No Known Results Summary Purpose eClinicalWorks Submission
--- OUTSIDE RECORDS SUMMARY | 2016-08-14 04:55 | XMS REPORT | Referral Summary ---
Author Author [facility] Organization [facility] Address Unknown Phone Unavailable Care Team Providers Care Automatic Spinning Lathe Setter Name Role Phone AntoninoChente gómezElvi L PCP Unavailable Encounter Date(s): 02/24/16 - 02/24/16 [facility] [address], [place] [address] Discharge Diagnosis: Tendinitis of left rotator cuff Discharge Disposition: 01-Home or Self Care Attending Physician: Yan Kwon MD Admitting Physician: Yan Kwon MD Vital Signs No data available for this section Problem List Condition Effective Dates Status Health Status Informant GERD(Confirmed) Active High Active cholesterol(Confirme d) Hypertension(Confirm Active ed) Minor head 10/09/14 Active injury(Confirmed) Obesity(Confirmed) Active patient Allergies, Adverse Reactions, Alerts Substance Reaction Severity Status amitriptyline Active Cipro Active Macrobid Active Peanuts Active Medications amLODIPine 5 mg oral tablet 5 mg 1 tabs, Oral, Daily, 0 Refill(s) Start Date: 02/24/16 Status: Ordered cyclobenzaprine 10 mg oral tablet 10 mg 1 tabs, Oral, TID, as needed for spasm, # 30 tabs, 0 Refill(s) Start Date: 02/24/16 Status: Ordered Klor-Con 10 10 mEq, Oral, BID, 0 Refill(s) Start Date: 02/24/16 Status: Ordered meclizine 25 mg oral tablet 25 mg 1 tabs, Oral, Daily, 0 Refill(s) Start Date: 02/24/16 Status: Ordered Dudley 5 mg-325 mg oral tablet 1 tabs, Oral, q6hr, 0 Refill(s) Start Date: 02/24/16 Status: Ordered pravastatin 20 mg, Oral, Daily, 0 Refill(s) Start Date: 02/24/16 Status: Ordered pravastatin Oral, Daily, 0 Refill(s) Start Date: 02/24/16 Status: Ordered traMADol 50 mg oral tablet 50 mg 1 tabs, Oral, Daily, 0 Refill(s) Start Date: 02/24/16 Status: Ordered triamterene-hydrochlorothiazide 37.5 mg-25 mg oral tablet 1 tabs, Oral, Daily, 0 Refill(s) Start Date: 02/24/16 Status: Ordered Results No data available for this section Immunizations No data available for this section Procedures Procedure Date Related Diagnosis Body Site Arthrocentesis, aspiration and/or injection, 02/24/16 major joint or bursa (eg, shoulder, hip, knee, subacromial bursa); without ultrasound guidance Bilateral Carpal tunnel release Tubal ligation Social History Social History Type Response Smoking Status Never smoker Assessment and Plan Extracted from: Title: Office Visit Note Author: Yan Kwon MD Date: 02/24/16 Assessment/Plan Left shoulder pain Tendinitis of left rotator cuff Ordered: Arthro/Asp Major Joint Inj (Shoulder, Hip, Knee) Office Visit Level 3 New [address]52 Extracted from: Title: Ambulatory Patient Education Author: Yan Kwon MD Date: 02/24/16 Family Medicine Shoulder Pain The shoulder is the joint that connects your arms to your body. The bones that form the shoulder joint include the upper arm bone (humerus), the shoulder blade (scapula), and the collarbone (clavicle). The top of the humerus is shaped like a ball and fits into a rather flat socket on the scapula (glenoid cavity). A combination of muscles and strong, fibrous tissues that connect muscles to bones (tendons) support your shoulder joint and hold the ball in the socket. Small, fluid-filled sacs (bursae) are located in different areas of the joint. They act as cushions between the bones and the overlying soft tissues and help reduce friction between the gliding tendons and the bone as you move your arm. Your shoulder joint allows a wide range of motion in your arm. This range of motion allows you to do things like scratch your back or throw a ball. However, this range of motion also makes your shoulder more prone to pain from overuse and injury. Causes of shoulder pain can originate from both injury and overuse and usually can be grouped in the following four categories: Redness, swelling, and pain (inflammation) of the tendon (tendinitis) or the bursae (bursitis). Instability, such as a dislocation of the joint. Inflammation of the joint (arthritis). Broken bone (fracture). HOME CARE INSTRUCTIONS Apply ice to the sore area. Put ice in a plastic bag. Place a towel between your skin and the bag. Leave the ice on for 15-20 minutes, 3-4 times per day for the first 2 days , or as directed by your health care provider. Stop using cold packs if they do not help with the pain. If you have a shoulder sling or immobilizer, wear it as long as your caregiver instructs. Only remove it to shower or bathe. Move your arm as little as possible, but keep your hand moving to prevent swelling. Squeeze a soft ball or foam pad as much as possible to help prevent swelling. Only take [id number] or prescription medicines for pain, discomfort, or fever as directed by your caregiver. SEEK MEDICAL CARE IF: Your shoulder pain increases, or new pain develops in your arm, hand, or fingers. Your hand or fingers become cold and numb. Your pain is not relieved with medicines. SEEK IMMEDIATE MEDICAL CARE IF: Your arm, hand, or fingers are numb or tingling. Your arm, hand, or fingers are significantly swollen or turn white or blue. MAKE SURE YOU: Understand these instructions. Will watch your condition. Will get help right away if you are not doing well or get worse. This information is not intended to replace advice given to you by your health care provider. Make sure you discuss any questions you have with your health care provider. Document Released: 01/04/2006 Document Revised: 04/17/2015 Document Reviewed: [employer] Patient Education 2016 [employer] No follow up information was provided.
--- OUTSIDE RECORDS SUMMARY | 2016-08-14 04:55 | XMS REPORT ---
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
--- OUTSIDE RECORDS SUMMARY | 2016-08-14 04:55 | XMS REPORT ---
Author Author SIMA HODGES [facility] Address [address] [place] [address] Care Team Providers Care Technologist Development Name Role Phone SIMA HODGES Unavailable PROBLEMS Type Condition ICD9-CM Code [id number] Code Onset Dates Condition Status SNOMED Code Problem Mixed hyperlipidemia E78.2 Active 38657216 Problem Constipation K59.00 Active 91970512 Problem Essential hypertension I10 Active 10891212 Problem 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 Active 598598114 Problem Acute stress disorder F43.0 Active 76331763 Problem Abnormal fasting glucose R73.09 Active 281937804 Problem Hypokalemia E87.6 Active 73933717 Problem Dysuria R30.0 Active 21985899 Problem Hematuria R31.9 Active 18715310 Problem Anxiety F41.9 Active 37531742 Problem Neck pain M54.2 Active 03333870 Problem 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
--- OUTSIDE RECORDS SUMMARY | 2016-08-14 04:55 | XMS REPORT ---
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 Active Problem Abnormal mammogram R92.8 Active Problem Hyperlipidemia LDL goal <160 E78.5 Active Problem Anxiety F41.9 Active Problem Mixed hyperlipidemia E78.2 Active Medications No Known Medications Procedures Procedure Coding System Code Date URINE CULTURE/COLONY COUNT CPT-4 36352 Feb 17, 2016 URINALYSIS, AUTO, W/O SCOPE CPT-4 44925 Feb 17, 2016 Results Name Result Date Reference Range Unit Abnormality Flag UA LONG DIP (IN HOUSE) ----Protein negative 20160217 ----pH 7.0 20160217 ----BLO negative 20160217 ----SG 1.020 20160217 ----KET negative 20160217 ----NIT negative 20160217 ----Clarity clear 20160217 ----URO 0.2 20160217 ----Color yellow 20160217 ----GLU negative 20160217 ----YENY 3+ 20160217 ----JUNIOR negative [id number] CULTURE, URINE ----Urine Culture, Routine Final report [id number] Summary Purpose eClinicalWorks Submission
--- OUTSIDE RECORDS SUMMARY | 2016-08-14 04:55 | XMS REPORT ---
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
--- OUTSIDE RECORDS SUMMARY | 2016-08-14 04:55 | XMS REPORT ---
Author Author SIMA HODGES Organization eClinicalWorks Address Unknown Phone Unavailable Care Team Providers Care Mamma Logist Name Role Phone SIMA HODGES CP Unavailable [...] Date End Date Status Dosage Klor-Con 10 [facility] [address]-35 10 MEQ Orally Once a day 2 tablet with food Results No Known Results Summary Purpose eClinicalWorks Submission
--- OUTSIDE RECORDS SUMMARY | 2016-08-14 04:56 | XMS REPORT ---
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
--- OUTSIDE RECORDS SUMMARY | 2016-08-14 04:56 | XMS REPORT ---
Author Author SIMA HODGES [facility] eClinicalWorks Address Unknown Phone Unavailable Care Team Providers Care Tank Charger Name Role Phone SIMA HODGES Unavailable Allergies, [...] Active Problem Abnormal fasting glucose R73.09 Active Assessment Essential hypertension I10 Active Assessment Abnormal mammogram R92.8 Active Assessment 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 Active Problem Abnormal mammogram R92.8 Active Problem Anxiety F41.9 Active Assessment Neck pain M54.2 Active Problem Neck pain M54.2 Active Assessment 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 Active Problem 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 must last 4 weeks 1 tablet as needed Cyclobenzaprine HCl [facility] 79038945802 10 MG orally tid prn 1 tablet Triamterene-HCTZ [facility] 43626113722 37.5-25 MG Orally Once a day 1 tablet in the morning Klor-Con 10 [facility] [address]-44 10 MEQ Orally Once a day 2 tablet with food Pravastatin Sodium [facility] [address]-90 20 MG TAKE ONE TABLET BY MOUTH AT BEDTIME Tramadol HCl [facility] [address]-31 50 MG Orally every 6 hrs 1 tablet as needed Meclizine HCl [facility] [address]-40 25 MG Orally Once a day 1 tablet as needed Procedures Procedure Coding System Code Date COMPREHEN METABOLIC PANEL CPT-4 20662 Nov 24, 2015 VENIPUNCT, ROUTINE* CPT-4 87415 Nov 24, 2015 No Charge CPT-4 95760 Nov 24, 2015 Office Visit, Est Pt., Level 4 CPT-4 86008 Nov 24, 2015 Vital Signs Date/Time: Nov 24, 2015 Cardiac Monitoring Heart Rate 80 bpm Weight 170.9 lbs Height 62 in BMI 31.25 Index Blood Pressure Diastolic 78 mmHg Blood Pressure Systolic 122 mmHg Results No Known Results Summary Purpose eClinicalWorks Submission
--- OUTSIDE RECORDS SUMMARY | 2016-08-14 04:56 | XMS REPORT ---
Author Author SIMA HODGES [facility] eClinicalWorks Address Unknown Phone Unavailable Care Team Providers Care Collaborating Supervising Physician Name Role Phone SIMA HODGES Unavailable Allergies, [...] Active Problem Mixed hyperlipidemia E78.2 Active Assessment Hypokalemia E87.6 Active Assessment Essential hypertension I10 Active Assessment Mixed hyperlipidemia E78.2 Active Medications Medication Code System Code Instructions Start Date End Date Status Dosage Meclizine HCl [facility] [address]-72 25 MG Orally Once a day 1 tablet as needed Amlodipine Besylate [facility] [address]-88 5 MG Orally Once a day 1 tablet Klor-Con 10 [facility] [address]-51 10 MEQ Orally Once a day Apr 02, 2015 1 tablet with food Fish Oil [facility] [address]-73 1000 MG Orally Once a day 1 capsule Chlorthalidone [facility] [address]-05 25 MG Once a day 2 tablets potassium NDC 0 Oral 1 tab Cyclobenzaprine HCl [facility] [address]-06 10 MG Orally Three times a day prn 1 tablet Cyclobenzaprine HCl [facility] 86860519327 10 MG TAKE ONE TABLET BY MOUTH THREE TIMES DAILY NEEDED HydrOXYzine HCl [facility] [address]-24 10 mg July 04, 2014 1 tablet by Oral route 4-6 times per day PRN Hydrocodone-Acetaminophen [facility] [address]-12 5-325 MG Orally 3 -4 times a day prn. must last 4 weeks 1 tablet as needed Pravastatin Sodium [facility] [address]-00 40 MG Orally Once a day TAKE ONE TABLET BY MOUTH AT BEDTIME Procedures Procedure Coding System Code Date Office Visit, Est Pt., Level 4 CPT-4 30784 Apr 28, 2015 Vital Signs Date/Time: Apr 28, 2015 Temperature 98.1 F Weight 172.0 lbs Height 62 in BMI 31.46 Index Blood Pressure Diastolic 70 mmHg Blood Pressure Systolic 140 mmHg Cardiac Monitoring Heart Rate 88 bpm Results No Known Results Summary Purpose eClinicalWorks Submission
--- OUTSIDE RECORDS SUMMARY | 2016-08-14 04:56 | XMS REPORT ---
Author Author SIMA HODGES [facility] eClinicalWorks Address Unknown Phone Unavailable Care Team Providers Care Interactive Media Project Manager Name Role Phone SIMA HODGES Unavailable Allergies, [...] Instructions Start Date End Date Status Dosage HydrOXYzine HCl [facility] [address]-13 10 mg July 04, 2014 1 tablet by Oral route 4-6 times per day PRN Chlorthalidone [facility] [address]-65 25 MG Once a day 2 tablets Fish Oil [facility] [address]-06 1000 MG Orally Once a day 1 capsule Pravastatin Sodium [facility] [address]-88 40 MG Orally Once a day TAKE ONE TABLET BY MOUTH AT BEDTIME Cyclobenzaprine HCl [facility] [address]-79 10 MG Orally Three times a day prn 1 tablet Amlodipine Besylate [facility] [address]-86 5 MG Orally Once a day 1 tablet Meclizine HCl [facility] [address]-59 25 MG Orally Once a day 1 tablet as needed potassium NDC 0 Oral 1 [place] [address]-07 5-325 MG Orally 3 -4 times a day prn. must last 4 weeks 1 tablet as needed Cyclobenzaprine HCl ND 06944477969 10 MG TAKE ONE TABLET BY MOUTH THREE TIMES DAILY NEEDED Procedures Procedure Coding System Code Date Office Visit, Est Pt., Level 3 CPT-4 91542 Mar 31, 2015 VENIPUNCT, ROUTINE* CPT-4 02376 Mar 31, 2015 COMPREHEN METABOLIC PANEL CPT-4 72053 Mar 31, 2015 Vital Signs Date/Time: Mar 31, 2015 Temperature 97.2 F Weight 171.1 lbs Height 62 in BMI 31.29 Index Blood Pressure Diastolic 78 mmHg Blood Pressure Systolic 124 mmHg Cardiac Monitoring Heart Rate 78 bpm Results Name Result Date Reference Range Unit Abnormality Flag ROUTINE VENIPUNCTURE Summary Purpose eClinicalWorks Submission
--- OUTSIDE RECORDS SUMMARY | 2016-08-14 04:56 | XMS REPORT ---
Author Author SIMA HODGES Organization eClinicalWorks Address Unknown Phone Unavailable Care Team Providers Care Finance Attorney Name Role Phone SIMA HODGES CP Unavailable [...] Date End Date Status Dosage Hydrocodone-Acetaminophen [facility] [address]-71 5-325 MG Orally 3 -4 times a day prn. must last 4 weeks 1 tablet as needed Results No Known Results Summary Purpose eClinicalWorks Submission
--- OUTSIDE RECORDS SUMMARY | 2016-08-14 04:56 | XMS REPORT ---
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
--- OUTSIDE RECORDS SUMMARY | 2016-08-14 04:56 | XMS REPORT ---
Author Author SIMA HODGES [facility] Address [address] [place] [address] Care Team Providers Care Category Development Analyst Name Role Phone SIMA HODGES Unavailable PROBLEMS Type Condition ICD9-CM Code [id number] Code Onset Dates Condition Status SNOMED Code Problem Mixed hyperlipidemia E78.2 Active 63910323 Problem Constipation K59.00 Active 02556325 Problem Essential hypertension I10 Active 05236337 Problem 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 Active 941128352 Problem Acute stress disorder F43.0 Active 77159964 Problem Abnormal fasting glucose R73.09 Active 805079576 Problem Hypokalemia E87.6 Active 36793879 Problem Dysuria R30.0 Active 64863729 Problem Hematuria R31.9 Active 43148701 Problem Anxiety F41.9 Active 72364603 Problem Neck pain M54.2 Active 09327249 Problem 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 must last 4 weeks 1 tablet as needed Active RESULTS No Results PROCEDURES No Known procedures IMMUNIZATIONS No Known Immunizations
--- OUTSIDE RECORDS SUMMARY | 2016-08-14 04:56 | XMS REPORT ---
Author Author SIMA HODGES Organization eClinicalWorks Address Unknown Phone Unavailable Care Team Providers Care Commissary Helper Name Role Phone SIMA HODGES CP Unavailable Allergies No Known Allergies Problems Problem Type Condition Code Onset Dates Condition Status Problem Anxiety state, unspecified 300.00 Active Problem Unspecified vitamin D deficiency 268.9 Active Problem Edema 782.3 Active Problem Unspecified otalgia 388.70 Active Problem Cervicalgia 723.1 Active Problem Mixed hyperlipidemia E78.2 Active Problem Hyperlipidemia LDL goal <160 E78.5 Active Problem Essential hypertension I10 Active Problem Essential hypertension, benign 401.1 Active Problem Personal history of, urinary (tract) infection V13.02 Active Problem Hyperlipemia 272.4 Active Problem Eustachian tube dysfunction 381.81 Active Medications Medication Code System Code Instructions Start Date End Date Status Dosage Hydrocodone-Acetaminophen [facility] [address]-56 5-325 MG Orally 3 -4 times a day prn- Must last 30 days- keep appt on 01/29/15 1 tablet as needed Results No Known Results Summary Purpose eClinicalWorks Submission
--- OUTSIDE RECORDS SUMMARY | 2016-08-14 04:57 | XMS REPORT ---
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
--- OUTSIDE RECORDS SUMMARY | 2016-08-14 04:57 | XMS REPORT ---
Author Author SIMA HODGES Organization eClinicalWorks Address Unknown Phone Unavailable Care Team Providers Care Territory Sales Representative Name Role Phone SIMA HODGES CP Unavailable [...]
--- OUTSIDE RECORDS SUMMARY | 2016-08-14 04:57 | XMS REPORT ---
Author Author SIMA HODGES Organization eClinicalWorks Address Unknown Phone Unavailable Care Team Providers Care Engraver Hand Soft Metals Name Role Phone SIMA HODGES CP Unavailable [...] Instructions Start Date End Date Status Dosage Triamterene-HCTZ [facility] [address]-14 37.5-25 MG Orally Once a day June 09, 2015 1 tablet in the morning Results No Known Results Summary Purpose eClinicalWorks Submission
--- OUTSIDE RECORDS SUMMARY | 2016-08-14 04:57 | XMS REPORT ---
Author Author SIMA HODGES Organization eClinicalWorks Address Unknown Phone Unavailable Care Team Providers Care Grubber Name Role Phone SIMA HODGES CP Unavailable [...]
--- OUTSIDE RECORDS SUMMARY | 2016-08-14 04:57 | XMS REPORT ---
Author Author SIMA HODGES [facility] eClinicalWorks Address Unknown Phone Unavailable Care Team Providers Care Dough Mixing Machine Operator Name Role Phone SIMA HODGES Unavailable Allergies, [...] 268.9 Active Problem Edema 782.3 Active Problem Mixed hyperlipidemia E78.2 Active Problem Hyperlipidemia LDL goal <160 E78.5 Active Problem Essential hypertension I10 Active Problem Essential hypertension, benign 401.1 Active Problem Personal history of, urinary (tract) infection V13.02 Active Problem Hyperlipemia 272.4 Active Problem Eustachian tube dysfunction 381.81 Active Assessment Essential (primary) hypertension I10 Active Assessment Mixed hyperlipidemia E78.2 Active Assessment Tension-type headache, unspecified, not intractable G44.209 Active Problem Unspecified otalgia 388.70 Active Assessment Strain of muscle, fascia and tendon at neck level, subsequent encounter S16.1XXD Active Problem Cervicalgia 723.1 Active Medications Medication Code System Code Instructions Start Date End Date Status Dosage Meclizine HCl [facility] [address]-93 25 MG Orally Once a day 1 tablet as needed Chlorthalidone [facility] [address]-88 25 MG Once a day 2 tablets Hydrocodone-Acetaminophen [facility] [address]-74 5-325 MG Orally 3 -4 times a day prn- Must last 30 days- keep appt on 12/03/14 1 tablet as needed Cyclobenzaprine HCl [facility] [address]-53 10 MG Orally Three times a day prn 1 tablet Pravastatin Sodium [facility] 01808185730 40 MG TAKE ONE TABLET BY MOUTH AT BEDTIME Amlodipine Besylate [facility] [address]-43 5 MG Orally Once a day November 01, 2014 1 tablet Procedures Procedure Coding System Code Date Office Visit, Est Pt., Level 3 CPT-4 53348 Jan 13, 2015 Vital Signs Date/Time: Jan 13, 2015 Temperature 97.0 F Weight 170.6 lbs Height 62 in BMI 31.20 Index Blood Pressure Diastolic 78 mmHg Blood Pressure Systolic 118 mmHg Cardiac Monitoring Heart Rate 84 bpm Results No Known Results Summary Purpose eClinicalWorks Submission
--- OUTSIDE RECORDS SUMMARY | 2016-08-14 04:57 | XMS REPORT ---
Author Author SIMA HODGES [facility] eClinicalWorks Address Unknown Phone Unavailable Care Team Providers Care Job Service Specialist Name Role Phone SIMA HODGES CP Unavailable [...] Date Status Dosage Cyclobenzaprine HCl [facility] 36080002018 10 MG TAKE ONE TABLET BY MOUTH THREE TIMES DAILY NEEDED Results No Known Results Summary Purpose eClinicalWorks Submission
--- OUTSIDE RECORDS SUMMARY | 2016-08-14 04:57 | XMS REPORT ---
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
--- OUTSIDE RECORDS SUMMARY | 2016-08-14 04:57 | XMS REPORT ---
Author Author SIMA HODGES [facility] eClinicalWorks Address Unknown Phone Unavailable Care Team Providers Care Flooring Salesperson Name Role Phone SIMA HODGES Unavailable Allergies, [...] Start Date End Date Status Dosage Hydrocodone-Acetaminophen [facility] [address]-61 5-325 MG Orally 3 times a day prn- Must last 30 days- keep appt on 12/03/14 Jan 02, 2015 1 tablet as needed Meclizine HCl [facility] [address]-68 25 MG Orally Once a day 1 tablet as needed Fish Oil [facility] [address]-17 1000 MG Orally Once a day 1 capsule Chlorthalidone [facility] [address]-05 25 MG Once a day 2 tablets Amlodipine Besylate [facility] [address]-05 5 MG Orally Once a day November 01, 2014 1 tablet pravastatin [facility] [address]-54 40 mg August 12, 2013 1 tablet by Oral route 1 time per day QHS. Avoid grapefruit juice and products with grapefruit. cyclobenzaprine [facility] [address]-85 10 mg oral 3 times a day prn Mar 31, 2014 Nov 12, 2014 1 tablet Pravastatin Sodium [facility] 78760847364 40 MG TAKE ONE TABLET BY MOUTH AT BEDTIME Procedures Procedure Coding System Code Date Office Visit, Est Pt., Level 3 CPT-4 21528 Dec 03, 2014 Vital Signs Date/Time: Dec 03, 2014 Temperature 97.2 F Weight 170.0 lbs Height 62 in BMI 31.09 Index Blood Pressure Diastolic 78 mmHg Blood Pressure Systolic 122 mmHg Cardiac Monitoring Heart Rate 100 bpm Results No Known Results Summary Purpose eClinicalWorks Submission
--- OUTSIDE RECORDS SUMMARY | 2016-08-14 04:57 | XMS REPORT ---
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
--- OUTSIDE RECORDS SUMMARY | 2016-08-14 04:58 | XMS REPORT ---
Author Author SIMA HODGES Organization eClinicalWorks Address Unknown Phone Unavailable Care Team Providers Care Egg And Spice Mixer Name Role Phone SIMA HODGES CP Unavailable Allergies No Known Allergies Problems Problem Type Condition ICD-9 Code Onset Dates Condition Status Problem Cervicalgia 723.1 Active Problem Unspecified otalgia 388.70 Active Problem Eustachian tube dysfunction 381.81 Active Problem Essential hypertension, benign 401.1 Active Problem Hyperlipemia 272.4 Active Problem Edema 782.3 Active Problem Anxiety state, unspecified 300.00 Active Problem Personal history of, urinary (tract) infection V13.02 Active Problem Unspecified vitamin D deficiency 268.9 Active Medications No Known Medications Results No Known Results Summary Purpose eClinicalWorks Submission
--- OUTSIDE RECORDS SUMMARY | 2016-08-14 04:58 | XMS REPORT ---
Author Author SIMA HODGES [facility] Address [address] [place] [address] Care Team Providers Care Health Administrator Name Role Phone SIMA HODGES Unavailable PROBLEMS Type Condition ICD9-CM Code [id number] Code Onset Dates Condition Status SNOMED Code Problem Constipation K59.00 Active 46044453 Problem Abnormal fasting glucose R73.09 Active 751022007 Problem Hypokalemia E87.6 Active 72442696 Problem Abnormal MRI, shoulder R93.8 Active 811511874 Problem Acute cystitis without hematuria N30.00 Active 82322702 Problem Dysuria R30.0 Active 07342778 Problem Hematuria R31.9 Active 06023079 Problem 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 Active 692291695 Problem Acute stress disorder F43.0 Active 53866164 Problem Abnormal mammogram R92.8 Active 580817272 Problem 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 must last 4 weeks 1 tablet as needed Active RESULTS No Results PROCEDURES No Known procedures IMMUNIZATIONS No Known Immunizations
--- OUTSIDE RECORDS SUMMARY | 2016-08-14 04:58 | XMS REPORT ---
Author Author SIMA HODGES Organization eClinicalWorks Address Unknown Phone Unavailable Care Team Providers Care Manager Of Project Management Name Role Phone SIMA HODGES CP Unavailable [...] E87.6 Active Problem Constipation K59.00 Active Medications No Known Medications Results No Known Results Summary Purpose eClinicalWorks Submission
--- OUTSIDE RECORDS SUMMARY | 2016-08-14 04:58 | XMS REPORT ---
Author Author MATTHEW BAY Organization eClinicalWorks Address Unknown Phone Unavailable Care Team Providers Care Oil Well Services Superintendent Name Role Phone MATTHEW BAY CP Unavailable Allergies No Known Allergies Problems [...] Instructions Start Date End Date Status Dosage Flagyl [facility] [address]-56 500 MG Orally 2 times a day May 21, 2015 1 tablet Results No Known Results Summary Purpose eClinicalWorks Submission
--- OUTSIDE RECORDS SUMMARY | 2016-08-14 04:58 | XMS REPORT ---
Author Author SIMA HODGES [facility] Address [address] [place] [address] Care Team Providers Care Garnett Feeder Name Role Phone SIMA HODGES Unavailable PROBLEMS Type Condition ICD9-CM Code [id number] Code Onset Dates Condition Status SNOMED Code Problem Mixed hyperlipidemia E78.2 Active 67185737 Problem Constipation K59.00 Active 53858076 Problem Essential hypertension I10 Active 57857967 Problem 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 Active 372037781 Problem Acute stress disorder F43.0 Active 37248974 Problem Abnormal fasting glucose R73.09 Active 388266220 Problem Hypokalemia E87.6 Active 01387532 Problem Dysuria R30.0 Active 82840611 Problem Hematuria R31.9 Active 59444640 Problem Anxiety F41.9 Active 40793501 Problem Neck pain M54.2 Active 67945272 Assessment Acute pain of left shoulder M25.512 15 Dec, 2015 Active 17058523 Problem 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
--- OUTSIDE RECORDS SUMMARY | 2016-08-14 04:58 | XMS REPORT ---
Author Author SIMA HODGES [facility] Address [address] [place] [address] Care Team Providers Care Sugarcane Research Technician Name Role Phone SIMA HODGES Unavailable PROBLEMS Type Condition ICD9-CM Code [id number] Code Onset Dates Condition Status SNOMED Code Problem Mixed hyperlipidemia E78.2 Active 75377369 Problem Constipation K59.00 Active 76206049 Problem Essential hypertension I10 Active 00072285 Problem 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 Active 049959127 Problem Acute stress disorder F43.0 Active 01970311 Problem Abnormal fasting glucose R73.09 Active 832102259 Problem Hypokalemia E87.6 Active 21908433 Problem Dysuria R30.0 Active 40951397 Problem Hematuria R31.9 Active 70488275 Problem Anxiety F41.9 Active 96983804 Problem Neck pain M54.2 Active 61411769 Problem 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
== END 2016-07-11 01:28 | disposition home or self-care (01) ==
LOC: EDUNIT# 22:04 → ER 22:07
DX: T78.3XXA Angioneurotic edema, initial encounter (principal); L50.9 Urticaria, unspecified; I10 Essential (primary) hypertension; Z79.899 Other long term (current) drug therapy
CPT/HCPCS: 96374; 96375

== ENCOUNTER → 2016-07-29 | Outpatient (CLI) | payer OTHER ==
[~2016-07-29] MED LIST changes: +FAMO-119 PO
--- NOTE | 2016-07-29 15:01 | Diagnostic Imaging Report ---
PROCEDURE: MRI lumbar spine. TECHNIQUE: Multiplanar, multisequence MRI of the lumbar spine was performed without contrast. INDICATION: 2014. Back pain, off-and-on. Radiates into right leg and groin. Comparison with 10/30/2014. FINDINGS: Good alignment of vertebral bodies. Body height is well maintained. Marrow signal is normal throughout. No evidence of pars defect. The conus medullaris and cauda equina appear normal. L5-S1: Desiccation of the disc is noted. There is broad-based disc protrusion with considerable posterior facet and ligamentous hypertrophy. This is causing moderate severe encroachment bilaterally upon the neural foramen and lateral recess. No central stenosis. L4-L5: Good preservation of disc space height. There is a very mild disc bulge eccentric to the left causing mild encroachment upon the lateral recess and neural foramen. Minimal facet and ligamentous hypertrophy with no stenosis. L1-L2, L2-L3 and L3-L4: The discs appear normal. Facets are normal. No ligamentous hypertrophy. The surrounding soft tissues appear normal. IMPRESSION: 1. Chronic degenerative disc and degenerative facet and ligamentous changes at L5-S1 causing moderate severe encroachment upon the lateral recesses and neural foramen more severe on the right. 2. Mild degenerative disc and facet disease, L4-L5. There has been some progression of hypertrophic facet and ligamentous disease at L5-S1 since previous exam. Dictated by: Dictated on workstation # [id number]
== END ==
LOC: RAD 13:41
PROVIDERS: ATTEND Nurse Practitioner Family
DX: M99.83 Other biomechanical lesions of lumbar region (principal)
CPT/HCPCS: 72148

== ENCOUNTER 2016-08-02 17:47 | Emergency (ER) | payer SELFPAY ==
[~2016-08-02] VITALS: Ht 157.5 cm; Wt 80.7 kg
[~2016-08-02 17:47] MED LIST changes: -FAMO-119 PO
[2016-08-02] MEDS ORDERED: methylPREDNISolone 125 MG (Solu-MEDROL) VIAL IVP ONE (18:15)
[2016-08-02] MEDS ORDERED: FAMOTIDINE 20MG/2ML IV (PEPCID) IVP ONE (18:15)
[2016-08-02] MEDS ORDERED: diphenhydrAMINE 50 MG/ML INJ (BENADRYL) IVP ONE (18:30)
[2016-08-02] MEDS ORDERED: PRD20T PO (18:52)
[2016-08-02] MEDS ORDERED: FAMO-119 PO (18:52)
--- NOTE | 2016-08-02 18:52 | ED General ---
General Chief Complaint: Facial Problems Stated Complaint: FACIAL SWELLING Nursing Triage Note: MILD FACIAL SWELLING X2 HOURS. NO OTHER SYMPTOMS. STATES SHE TOOK BENADRYL X2 AT 1500. Nursing Sepsis Screen: No Definite Risk Source of Information: Patient Exam Limitations: No Limitations History of Present Illness Time Seen by Provider: 18:06 Initial Comments This 61-year-old woman presents to the emergency room with lip and facial swelling shortly after consuming some fried [place] food. She has a peanut allergy and is uncertain if there were any not products or peanut oil used in heard food. She denies any difficulty breathing, throat swelling, or tongue swelling. She does have a history of angioedema related to medications and peanuts. She took Benadryl 50 mg at approximately 15:30 without significant improvement. She does have an EpiPen but did not feel the need to use it today. Patient also complains of pain in the right ear for 2 days. She has been using anesthetic eardrops today. Allergies and Home Medications Allergies Coded Allergies: peanut (Verified Allergy, Severe, SOA, FACIAL SWELLING, 05/21/16) sulfamethoxazole (Unverified Adverse Reaction, Mild, 05/22/14) trimethoprim (Unverified Adverse Reaction, Mild, 05/22/14) Home Medications Amlodipine Besylate 5 Mg Tablet, 5 MG PO DAILY, (Reported) Amoxicillin 500 Mg Capsule, 1,000 MG PO BID, #40 Prescribed by: OBDULIA BELLA on 08/02/16 1901 Chlorthalidone 25 Mg Tablet, 25 MG PO DAILY, (Reported) Cyclobenzaprine Hcl 10 Mg Tablet, 10 MG PO TID PRN for MUSCLE SPASMS, (Reported) Famotidine 20 Mg Tablet, 20 MG PO BID, #20 Prescribed by: OBDULIA BELLA on 08/02/16 1852 Hydrocodone Bit/Acetaminophen 1 Tab Tablet, 1 TAB PO Q4H PRN for PAIN, #14 Ref 0 Prescribed by: SIDDHARTH COTTON on 10/09/14 1656 Hydrocodone/Acetaminophen 1 Each Tablet, 1 EACH PO Q6H, #8 Ref 0 Prescribed by: WILLA WARREN on 02/04/16 1233 Hydrocodone/Acetaminophen 1 Each Tablet, 1 EACH PO Q6H PRN for SEVERE PAIN, #10 Prescribed by: BRITT ZIEGLER on 06/18/16 1308 Ibuprofen 800 Mg Tablet, 800 MG PO Q8H PRN for PAIN, #30 Prescribed by: BRITT ZIEGLER on 06/18/16 1308 Ketorolac Tromethamine 10 Mg Tablet, 10 MG PO Q6H, #20 Prescribed by: BUTCH DE JESUS MD on 10/03/15 1821 Meclizine Hcl 25 Mg Tablet, 25 MG PO TID PRN PRN for DIZZINESS, (Reported) [place] 3 Polyunsat Fatty Acids 1,000 Mg Cap, 1,000 MG PO DAILY, (Reported) Pravastatin Sodium 40 Mg Tablet, 40 MG PO HS, (Reported) Prednisone 20 Mg Tab, 20 MG PO BID, #6 Prescribed by: OBDULIA BELLA on 08/02/16 1852 Constitutional: no symptoms reported EENTM: see HPI Respiratory: no symptoms reported Cardiovascular: no symptoms reported Gastrointestinal: no symptoms reported Genitourinary: no symptoms reported Musculoskeletal: no symptoms reported Skin: no symptoms reported Psychiatric/Neurological: No Symptoms Reported Hematologic/Lymphatic: No Symptoms Reported Immunological/Allergic: see HPI Past Svewmhh-Peuogn-Zexjsv Hx Patient Social History Alcohol Use: Denies Use Recreational Drug Use: No Smoking Status: Never a Smoker 2nd Hand Smoke Exposure: No Recent Foreign Travel: No Contact w/Someone Who Travel: No Recent Infectious Disease Expo: No Recent Hopitalizations: No Immunizations Up To Date Tetanus Booster (TDap): Less than 5yrs Seasonal Allergies Seasonal Allergies: No Surgeries HX Surgeries: Yes (CARPAL TUNNEL) Surgeries: Adenoidectomy, Orthopedic, Tubal Ligation Respiratory Hx Respiratory Disorders: No Cardiovascular Hx Cardiac Disorders: Yes (Angioedema) Cardiac Disorders: High Cholesterol, Hypertension Neurological Hx Neurological Disorders: No Reproductive System : No Hx Reproductive Disorders: Yes (FIBROIDS) Genitourinary Hx Genitourinary Disorders: No Gastrointestinal Hx Gastrointestinal Disorders: No Musculoskeletal Hx Musculoskeletal Disorders: Yes Musculoskeletal Disorders: Chronic Back Pain Endocrine Hx Endocrine Disorders: No HEENT HX ENT Disorders: Yes (Angioedema of the lips) Cancer Hx Cancer: No Psychosocial Hx Psychiatric Problems: No Integumentary HX Skin/Integumentary Disorder: Yes (HIVES, ANGIOEDEMA) Blood Transfusions Hx Blood Disorders: No Family Medical History Significant Family History: No Pertinent Family Hx Physical Exam Vital Signs Vital Sign - Last 12Hours 08/02/16 17:50 Temp 97.3 Pulse 83 Resp 16 B/P (MAP) 137/99 Pulse Ox 99 Capillary Refill : Less Than 3 Seconds General Appearance: No Apparent Distress, WD/WN HEENT: PERRL/EOMI, Other (edema of the lips, loose cerumen in the right ear canal partially obstructing view of the TM) Neck: Normal Inspection, Non Tender, Supple Respiratory: Lungs Clear, Normal Breath Sounds, No Accessory Muscle Use, No Respiratory Distress Cardiovascular: Regular Rate, Rhythm, No Edema, No Murmur Extremity: Normal Inspection, No Pedal Edema Neurologic/Psychiatric: Alert, Oriented x3, No Motor/Sensory Deficits, Normal Mood/Affect, logistics service representative II-XII Norm as Tested Skin: Normal Color, Warm/Dry Progress/Results/Core Measures Results/Orders My Orders Orders - OBDULIA MCCOY MD Saline Lock/Iv-Start (08/02/16 18:15) Famotidine Injection (Pepcid Injection) (08/02/16 18:15) Methylprednisolone Sod Succ (Solu-Medrol (08/02/16 18:15) Diphenhydramine Injection (Benadryl Inje (08/02/16 18:30) Medications Given in ED Current Medications Medications Dose Ordered Sig/Deangelo Route Start Time Stop Time Status Last Admin Dose Admin Diphenhydramine HCl 25 mg ONCE ONCE IVP 08/02/16 18:30 08/02/16 18:31 DC 08/02/16 18:26 25 MG Famotidine 20 mg ONCE ONCE IVP 08/02/16 18:15 08/02/16 18:17 DC 08/02/16 18:26 20 MG Methylprednisolone Sodium Succinate 125 mg ONCE ONCE IVP 08/02/16 18:15 08/02/16 18:17 DC 08/02/16 18:26 125 MG Vital Signs/I&O Vital Sign - Last 12Hours 08/02/16 17:50 Temp 97.3 Pulse 83 Resp 16 B/P (MAP) 137/99 Pulse Ox 99 Blood Pressure Mean: 112 Progress Note : Time: 18:47 Progress Note Patient was treated with IV Benadryl, Pepcid, and Solu-Medrol. She had no progression of symptoms and requested dismissal. Prescriptions were provided. Amoxicillin prescription was printed to start as she is concerned she is developing a right otitis media. She can start this in a few days if symptoms do not improve. She does have an EpiPen at home and indicates she knows how to use it appropriately. Departure Impression Impression: Primary Impression: Angioedema of lips Qualified Codes: T78.3XXA - Angioneurotic edema, initial encounter Additional Impression: Otalgia, right ear Disposition: 01 HOME, SELF-CARE Condition: Stable Departure-Patient Inst. Decision time for Depature: 18:45 Referrals: ROSANNA NELSON DO (PCP) Primary Care Physician SIMA HODGES (Family) Primary Care Physician Patient Instructions: Angioedema Add. Discharge Instructions: Take famotidine (Pepcid) 20 mg twice daily for the next several days. Take prednisone twice daily for at least 2 days as well. Save remaining pills for future episodes. Keep Benadryl handy and take up to 50 mg every 4 hours as needed if symptoms start to rebound. Keep your EpiPen handy for severe attacks. If you develop significant tongue or throat swelling or difficulty breathing, use your EpiPen and return to emergency room immediately or call 911. Avoid any foods or medications that may trigger angioedema. If your ear pain worsens or persists for greater than 48 hours, start the antibiotic and completed as prescribed. All discharge instructions reviewed with patient and/or family. Voiced understanding. Scripts Amoxicillin (Amoxicillin) 500 Mg Capsule 1000 MG PO BID, #40 CAP Prov: OBDULIA MCCOY MD 08/02/16 Famotidine (Pepcid) 20 Mg Tablet 20 MG PO BID, #20 TAB Prov: OBDULIA MCCOY MD 08/02/16 Prednisone (Prednisone) 20 Mg Tab 20 MG PO BID, #6 TAB Prov: OBDULIA MCCOY MD 08/02/16 OBDULIA MCCOY MD Aug 02, 2016 18:52
[2016-08-02 18:57] VITALS: BP 131/95
[2016-08-02] MEDS ORDERED: AMOX500C2 PO (19:01)
== END 2016-08-02 18:57 | disposition home or self-care (01) ==
LOC: EDUNIT# 17:47 → ER 17:49
DX: T78.3XXA Angioneurotic edema, initial encounter (principal); H92.01 Otalgia, right ear; I10 Essential (primary) hypertension; Z79.899 Other long term (current) drug therapy; Z91.010 Allergy to peanuts
CPT/HCPCS: 96374; 96375

== ENCOUNTER → 2016-09-02 | Outpatient (CLI) | payer OTHER ==
[~2016-09-02] MED LIST changes: +FAMO-119 PO
--- NOTE | 2016-09-06 09:36 | Diagnostic Imaging Report ---
Bilateral screening mammogram The current study was also evaluated with a Computer Aided Detection (CAD) system. Indication: Screening. No current complaints stated on the questionnaire. COMPARISON: 07/10/15 FINDINGS: The breasts are composed of heterogeneously dense parenchyma which may decrease mammographic sensitivity. Benign-appearing calcifications are noted. Allowing for technique and positional differences, no suspicious change is seen. IMPRESSION: No significant change. ACR BI-RADS Category 2: Benign findings. Result letter will be mailed to the patient. Note: At least 10% of breast cancer is not imaged by mammography. Dictated by: Dictated on workstation # [id number]
== END ==
LOC: RAD 10:48
PROVIDERS: ATTEND Nurse Practitioner Family
DX: Z12.31 Encounter for screening mammogram for malignant neoplasm of breast (principal)
CPT/HCPCS: 77067

== ENCOUNTER 2017-05-11 09:46 | Outpatient (RCR) | payer OTHER ==
[~2017-05-11 09:46] MED LIST changes: +HYDR-34 PO; -HYDR-3816 PO
== END 2017-05-24 15:45 | disposition home or self-care (01) ==
PROVIDERS: ATTEND Nurse Practitioner Family
DX: M54.2 Cervicalgia (principal); M54.5 Low back pain

== ENCOUNTER → 2017-11-21 | Outpatient (CLI) | payer SELFPAY ==
--- NOTE | 2017-11-21 14:56 | Diagnostic Imaging Report ---
Clinical indication: Patient with hematuria. Exam: Ultrasound of both kidneys. Comparison: CT scan of the abdomen and pelvis without contrast dated 06/18/2016. Findings: There is a 3.4 cm x 4.4 cm x 3.1 cm heterogeneous area of masslike thickening involving the midportion of the left kidney. There is increased Doppler flow in the region. There appears to be sessile exophytic component. Otherwise, both kidneys are normal in size, shape, echogenicity and cortical thickness without hydronephrosis, stones, or other focal lesions with the right and left kidneys measuring 9.2 cm and 9.1 cm in their craniocaudal dimensions, respectively. The bladder is partially fluid-filled with no gross abnormality. Bilateral ureter jets are seen. Impression: 1: There is a masslike area of thickening involving the midportion left kidney which was not visualized on the prior CT scan. It is unknown if this represents a mass or prominence of the left kidney such as dromedary hump. Given its appearance, a neoplasm should be excluded. CT scan of the kidneys with contrast is suggested for further evaluation. 2: Otherwise, unremarkable bilateral renal ultrasound. Dictated by: Dictated on workstation # [id number]
== END ==
LOC: RAD 14:05
PROVIDERS: ATTEND Nurse Practitioner Family
DX: R31.9 Hematuria, unspecified (principal)
CPT/HCPCS: 76770

== ENCOUNTER → 2018-02-19 | Outpatient (CLI) | payer SELFPAY ==
[~2018-02-19] MED LIST changes: +HYDR-4226 PO; -HYDR-757 PO
--- NOTE | 2018-02-19 13:28 | Diagnostic Imaging Report ---
EXAMINATION: Magnetic resonance imaging of the right elbow without contrast DATE: February 19, 2018. COMPARISON: None. HISTORY: 62-year-old female, right elbow pain. TECHNIQUE: Magnetic Resonance Imaging sequences were performed of the elbow without contrast. FINDINGS: There are limitations of the exam relating to low djkepm-yy-gmajx ratio and some motion artifact. LIGAMENTS: The anterior band of the medial ulnar collateral ligament complex is intact. There is limited evaluation of the lateral ulnar collateral ligament complex. There is likely a sprain injury and/or partial tear of the lateral ulnar collateral ligament and radial collateral ligament. The annular ligament appears intact. MUSCLES AND TENDONS: There is a full-thickness tear at the common extensor tendon attachment with fluid filled tendon gap measuring 9 mm. The proximal common flexor tendons are intact. The distal biceps muscle and tendon and the attachment site at the radial tubercle are intact. The distal brachialis muscle and tendon and its insertion on the ulna are intact. The distal triceps muscle and tendon and the attachment site at the olecranon are intact. JOINTS: The radiocapitellar and ulnotrochlear joints are normally aligned. Cartilage surfaces are congruent. There is a moderate-sized elbow joint effusion. BONE: The bones all have normal configuration. The bone marrow signal is within normal limits. Specifically, negative for fracture, osteomyelitis, osteonecrosis, or marrow replacing process. SOFT TISSUE: The bursae and soft tissues around the elbow are within normal limits. IMPRESSION: 1. Full-thickness tear at the common extensor tendon attachment with fluid-filled tendon gap measuring 9 mm. 2. Limitations of the exam relating to low krmaqj-xn-xgrjd ratio and some motion artifact. 3. Suspected a sprain injury and/or partial tear of the lateral ulnar collateral ligament and radial collateral ligament. The annular ligament appears intact. 4. Grossly intact anterior band of the medial ulnar collateral ligament complex. 5. Additional tendons are intact. 6. Moderate elbow joint effusion. 7. No acute fracture or bone contusion. Dictated by: Dictated on workstation # [id number]
== END ==
LOC: RAD 10:43
PROVIDERS: ATTEND Nurse Practitioner
DX: S56.511A Strain of other extensor muscle, fascia and tendon at forearm level, right arm, initial encounter (principal)
CPT/HCPCS: 73221

== ENCOUNTER 2018-06-07 22:02 | Emergency (ER) | payer SELFPAY ==
[~2018-06-07] VITALS: Ht 157.5 cm; Wt 82.1 kg
[2018-06-07] MEDS ORDERED: NITROGLYCERIN 0.4 MG SL TABS BTL 25'S SL PRN (22:15)
[2018-06-07] MEDS ORDERED: ASPIRIN 81 MG CHEW (CHILDREN'S ASA) PO ONE (22:15)
--- NOTE | 2018-06-07 22:27 | ED Chest Pain ---
General Stated Complaint: CHEST PAIN Allergies and Home Medications Allergies Coded Allergies: peanut (Verified Allergy, Severe, SOA, FACIAL SWELLING, 05/21/16) sulfamethoxazole (Unverified Adverse Reaction, Mild, 05/22/14) trimethoprim (Unverified Adverse Reaction, Mild, 05/22/14) Home Medications Amlodipine Besylate 5 Mg Tablet, 5 MG PO DAILY, (Reported) Amoxicillin 500 Mg Capsule, 1,000 MG PO BID Prescribed by: OBDULIA BELLA on 08/02/16 190 Chlorthalidone 25 Mg Tablet, 25 MG PO DAILY, (Reported) Cyclobenzaprine Hcl 10 Mg Tablet, 10 MG PO TID PRN for MUSCLE SPASMS, (Reported) Famotidine 20 Mg Tablet, 20 MG PO BID Prescribed by: OBDULIA BELLA on 08/02/16 185 Hydrocodone Bit/Acetaminophen 1 Tab Tablet, 1 TAB PO Q4H PRN for PAIN Prescribed by: SIDDHARTH COTTON on 10/09/14 1656 Hydrocodone Bit/Acetaminophen 1 Each Tablet, 1 EACH PO Q6H Prescribed by: WILLA WARREN on 02/04/16 1233 Hydrocodone/Acetaminophen 1 Each Tablet, 1 EACH PO Q6H PRN for SEVERE PAIN Prescribed by: BRITT ZIEGLER on 06/18/16 1308 Ibuprofen 800 Mg Tablet, 800 MG PO Q8H PRN for PAIN Prescribed by: BRITT ZIEGLER on 06/18/16 1308 Ketorolac Tromethamine 10 Mg Tablet, 10 MG PO Q6H Prescribed by: BUTCH DE JESUS MD on 10/03/15 1821 Meclizine Hcl 25 Mg Tablet, 25 MG PO TID PRN PRN for DIZZINESS, (Reported) Aneta 3 Polyunsat Fatty Acids 1,000 Mg Cap, 1,000 MG PO DAILY, (Reported) Pravastatin Sodium 40 Mg Tablet, 40 MG PO HS, (Reported) Prednisone 20 Mg Tab, 20 MG PO BID Prescribed by: OBDULIA BELLA on 08/02/161851 Past Ljpidac-Yalhab-Jngfec Hx Patient Social History 2nd Hand Smoke Exposure: No Recent Foreign Travel: No Contact w/Someone Who Travel: No Recent Hopitalizations: No Immunizations Up To Date Tetanus Booster (TDap): Less than 5yrs Seasonal Allergies Seasonal Allergies: No Past Medical History Surgeries: Yes (CARPAL TUNNEL) Adenoidectomy, Orthopedic, Tubal Ligation Respiratory: No Cardiac: Yes (Angioedema) High Cholesterol, Hypertension Neurological: No Reproductive Disorders: Yes (FIBROIDS) Gastrointestinal: No Musculoskeletal: Yes Chronic Back Pain Endocrine: No Cancer: No Psychosocial: No Integumentary: Yes (HIVES, ANGIOEDEMA) Blood Disorders: No Family Medical History No Pertinent Family Hx Physical Exam Vital Signs Capillary Refill : Height, Weight, BMI Height: 5'2.00" Weight: 177lbs. 0oz. 80.821716qj; 31.27 BMI Method:Stated Progress/Results/Core Measures Results/Orders Lab Results Laboratory Tests Test 06/07/18 22:18 Range/Units White Blood Count 5.2 4.3-11.0 10^3/uL Red Blood Count 4.86 4.35-5.85 10^6/uL Hemoglobin 13.1 11.5-16.0 G/DL Hematocrit 40 35-52 % Mean Corpuscular Volume 83 80-99 FL Mean Corpuscular Hemoglobin 27 25-34 PG Mean Corpuscular Hemoglobin Concent 33 32-36 G/DL Red Cell Distribution Width 13.7 10.0-14.5 % Platelet Count 290 130-400 10^3/uL Mean Platelet Volume 10.7 H 7.4-10.4 FL Neutrophils (%) (Auto) 53 42-75 % Lymphocytes (%) (Auto) 38 12-44 % Monocytes (%) (Auto) 6 0-12 % Eosinophils (%) (Auto) 2 0-10 % Basophils (%) (Auto) 0 0-10 % Neutrophils # (Auto) 2.8 1.8-7.8 X 10^3 Lymphocytes # (Auto) 2.0 1.0-4.0 X 10^3 Monocytes # (Auto) 0.3 0.0-1.0 X 10^3 Eosinophils # (Auto) 0.1 0.0-0.3 10^3/uL Basophils # (Auto) 0.0 0.0-0.1 10^3/uL Prothrombin Time 12.8 12.2-14.7 SEC INR Comment 1.0 0.8-1.4 Activated Partial Thromboplast Time 31 24-35 SEC Sodium Level 142 135-145 MMOL/L Potassium Level 3.6 3.6-5.0 MMOL/L Chloride Level 103 98-107 MMOL/L Carbon Dioxide Level 25 21-32 MMOL/L Anion Gap 14 5-14 MMOL/L Blood Urea Nitrogen 13 7-18 MG/DL Creatinine 0.82 0.60-1.30 MG/DL Estimat Glomerular Filtration Rate > 60 BUN/Creatinine Ratio 16 Glucose Level 120 H 70-105 MG/DL Calcium Level 10.8 H 8.5-10.1 MG/DL Corrected Calcium 8.5-10.1 MG/DL Magnesium Level 2.3 1.8-2.4 MG/DL Total Bilirubin 0.3 0.1-1.0 MG/DL Aspartate Amino Transf (AST/SGOT) 26 5-34 U/L Alanine Aminotransferase (ALT/SGPT) 19 0-55 U/L Alkaline Phosphatase 101 40-136 U/L Total Creatine Kinase 127 29-168 U/L Creatine Kinase MB 1.9 <6.6 NG/ML Myoglobin 42.0 10.0-92.0 NG/ML Troponin I < 0.028 <0.028 NG/ML B-Type Natriuretic Peptide 14.3 <100.0 PG/ML Total Protein 7.8 6.4-8.2 GM/DL Albumin 4.6 H 3.2-4.5 GM/DL Amylase Level 44 25-125 U/L Lipase 23 8-78 U/L My Orders Orders - RICARDO MEZA DO Cbc With Automated Diff (06/07/18 22:06) Magnesium (06/07/18 22:06) Chest 1 View, Ap/Pa Only (06/07/18 22:06) Ekg Tracing (06/07/18 22:06) Cardiac Profile 1 (06/07/18 22:06) Comprehensive Metabolic Panel (06/07/18 22:06) Myoglobin Serum (06/07/18 22:06) Protime With Inr (06/07/18 22:06) Partial Thromboplastin Time (06/07/18 22:06) O2 (06/07/18 22:06) Monitor-Rhythm Ecg Trace Only (06/07/18 22:06) Lipid Panel (06/08/18 06:00) Aspirin Chewable Tablet (Baby Aspirin Ch (06/07/18 22:15) Nitroglycerin 0.4 Mg Btl 25's (Nitrostat (06/07/18 22:15) Saline Lock/Iv-Start (06/07/18 22:06) Creatine Kinase (06/07/18 22:06) Creatine Kinase Mb (06/07/18 22:06) Lipase (06/07/18 22:06) Amylase (06/07/18 22:06) BNP (06/07/18 22:06) Ketorolac Injection (Toradol Injection) (06/07/18 22:59) Medications Given in ED Current Medications Medications Dose Ordered Sig/Deangelo Route Start Time Stop Time Status Last Admin Dose Admin Aspirin 324 mg ONCE ONCE PO 06/07/18 22:15 06/07/18 22:16 DC 06/07/18 22:15 162 MG Nitroglycerin 0.4 mg UD PRN SL 06/07/18 22:15 06/07/18 22:25 0.4 MG Initial ECG Impression Date: Jun 07, 2018 Initial ECG Impression Time: 22:03 Initial ECG Rate: 81 Initial ECG Rhythm: Normal Sinus Initial ECG Impression: Normal Diagnostic Imaging Comments CXR-- Departure Impression Primary Impression: Chest wall pain Disposition: HOME, SELF-CARE Condition: Improved Departure-Patient Inst. Referrals: [facility] (PCP) Primary Care Physician BETI STAUFFER APRN (Family) Primary Care Physician Patient Instructions: Chest Pain That Is Not Caused by the Heart (DC), Costochondritis (DC) Add. Discharge Instructions: MOIST HEAT TO AREA AT 20 MINUTE INTERVALS ACTIVITIES TOLERATED FOLLOW UP WITH [facility] IN 1-2 DAYS IF NO BETTER Scripts Cyclobenzaprine HCl (Cyclobenzaprine HCl) 10 Mg Tablet 10 MG PO Q8H, #15 TAB Prov: RICARDO MEZA DO 06/07/18 Methylprednisolone (Medrol) 4 Mg Tab.ds.pk 4 MG PO UD, #1 PKG Prov: RICARDO MEZA DO 06/07/18 RICARDO MEZA DO Jun 07, 2018 22:27
[2018-06-07 22:28] LABS: BASOPHILS % (AUTO) 0 % (0-10); EOSINOPHILS # (AUTO) 0.1 10^3/uL (0.0-0.3); EOSINOPHILS % (AUTO) 2 % (0-10); HEMATOCRIT 40 % (35-52); HEMOGLOBIN 13.1 G/DL (11.5-16.0); LYMPHOCYTES % (AUTO) 38 % (12-44); MEAN CORPUSCULAR HEMOGLOBIN 27 PG (25-34); MEAN CORPUSCULAR HGB CONC 33 G/DL (32-36); MEAN CORPUSCULAR VOLUME 83 FL (80-99); MEAN PLATELET VOLUME 10.7 FL (7.4-10.4); MONOCYTES # (AUTO) 0.3 X 10^3 (0.0-1.0); MONOCYTES % (AUTO) 6 % (0-12); NEUTROPHILS # (AUTO) 2.8 X 10^3 (1.8-7.8); NEUTROPHILS % (AUTO) 53 % (42-75); PLATELET COUNT 290 10^3/uL (130-400); RED CELL DISTRIBUTION WIDTH 13.7 % (10.0-14.5); WHITE BLOOD COUNT 5.2 10^3/uL (4.3-11.0)
[2018-06-07 22:55] LABS: PROTHROMBIN TIME PATIENT 12.8 SEC (12.2-14.7)
[2018-06-07 22:58] LABS: ALANINE AMINOTRANSFERASE 19 U/L (0-55); ALBUMIN 4.6 GM/DL (3.2-4.5); ALKALINE PHOSPHATASE 101 U/L (40-136); AMYLASE 44 U/L (25-125); BILIRUBIN,TOTAL 0.3 MG/DL (0.1-1.0); BUN/CREATININE RATIO 16; CALCIUM 10.8 MG/DL (8.5-10.1); CARBON DIOXIDE 25 MMOL/L (21-32); CHLORIDE 103 MMOL/L (98-107); CREATINE KINASE 127 U/L (29-168); CREATININE SERUM 0.82 MG/DL (0.60-1.30); GFR ESTIMATED > 60; GLUCOSE 120 MG/DL (70-105); LIPASE 23 U/L (8-78); MAGNESIUM 2.3 MG/DL (1.8-2.4); POTASSIUM 3.6 MMOL/L (3.6-5.0); SODIUM 142 MMOL/L (135-145); TOTAL PROTEIN 7.8 GM/DL (6.4-8.2)
[2018-06-07] MEDS ORDERED: KETOROLAC 30 MG/ML VIAL IVP STA (22:59)
[2018-06-07 23:05] LABS: CREATINE KINASE MB 1.9 NG/ML (<6.6)
[2018-06-07] MEDS ORDERED: CYCL10TA9 PO (23:18)
[2018-06-07] MEDS ORDERED: METH4TAB PO (23:18)
[2018-06-07 23:35] VITALS: BP 127/70
--- NOTE | 2018-06-08 07:42 | Diagnostic Imaging Report ---
INDICATION: Chest pain. Comparison with 10/03/2015. FINDINGS: Portable chest shows the lungs to be well-aerated. There is a calcified granuloma again noted laterally in the left chest which is stable. There are no acute infiltrates or masses. Heart is not enlarged. No pulmonary edema. No pneumothorax or pleural effusion. No bony abnormalities. IMPRESSION: Stable portable chest Dictated by: Dictated on workstation # [id number]
--- OUTSIDE RECORDS SUMMARY | 2018-06-10 04:36 | XMS REPORT | Referral Summary ---
Author Author [facility] Organization [facility] Address Unknown Phone Unavailable Care Team Providers Care Deputy Director Of Public Works Name Role Phone Lupe Joy PCP Encounter VC Date(s): 01/13/17 - 01/13/17 [facility] [address] [place] [address] [facility] Discharge Diagnosis: Angioedema Discharge Diagnosis: Allergy, food Discharge Disposition: 01-Home or Self Care Attending Physician: Narcisa Young MD Admitting Physician: Narcisa Young MD Referring Physician: Elvi Ortiz CRNA Vital Signs Most recent to 1 oldest [Reference Range]: Blood Pressure 124/84 mmHg [90-140/60-90 mmHg] (01/13/17 12:43 PM) Problem List Condition Effective Dates Status Health Status Informant GERD(Confirmed) Active High Active cholesterol(Confirme d) Hypertension(Confirm Active ed) Minor head 10/09/14 Active injury(Confirmed) Obesity(Confirmed) Active patient Allergies, Adverse Reactions, Alerts Substance Reaction Severity Status amitriptyline Active Cipro Active Macrobid Active Tree Nuts Active Peanuts Active Medications amLODIPine 5 mg oral tablet 5 mg 1 tabs, Oral, Daily, 0 Refill(s) Start Date: 02/24/16 Status: Ordered cyclobenzaprine 10 mg oral tablet 10 mg 1 tabs, Oral, TID, as needed for spasm, # 30 tabs, 0 Refill(s) Start Date: 02/24/16 Status: Ordered EpiPen 2-Андрей 0.3 mg injectable kit 0.3 mg, IntraMuscular, Once, 0 Refill(s) Start Date: 01/13/17 Status: Ordered Klor-Con 10 10 mEq, Oral, BID, 0 Refill(s) Start Date: 02/24/16 Status: Ordered meclizine 25 mg oral tablet 25 mg 1 tabs, Oral, Daily, 0 Refill(s) Start Date: 02/24/16 Status: Ordered [place] 5 mg-325 mg oral tablet 1 tabs, [...] Procedures Procedure Date Related Diagnosis Body Site Bilateral Carpal tunnel release Tubal ligation Social History Social History Type Response Smoking Status Never smoker entered on: 02/24/16 Assessment and Plan Extracted from: Title: Office Visit Note Author: Narcisa Young MD Date: 01/13/17 1.Angioedema Because she has been havingepisodes of angioedema even without eating, complement was ordered for evaluation of hereditary and acquired angioedema. Instructed to keep her epinephrine autoinjectorwith her at all times, reviewed when and how to use it. Sample was provided. Ordered: C1 Esterase Inhibitor Antigen-[place] C1 Esterase Inhibitor Functional Quant-[place] C3 Complement C4 Complement Complement Z2l-Slhy percutaneous tests w/allergenic extracts [id number] 2.Allergy, food To pistachio, confirmed by skin test. Strict avoidance was recommended with careful label reading. Instructed to carry epinephrine auto-injector at all times with instruction on how and when to use it. In vitro testing for other tree nutsthat were negativewas ordered. Ordered: [place] IgE [place] Nut IgE Cashew Nut IgE Coconut IgE Pecan IgE percutaneous tests w/allergenic extracts [id number] Sesame Seed IgE [place] Food IgE
--- OUTSIDE RECORDS SUMMARY | 2018-06-10 04:36 | XMS REPORT | Clinical Summary ---
Author Author [facility] Organization [facility] Address Unknown Phone Unavailable Care Team Providers Care Mill Operator Head Name Role Phone Judd Phillips MD Unavailable Unavailable AngelElvi AMELIE PCP Source Comments Some departments are not documenting in the electronic medical record. If you do not see the information that you expected, contact Release of Information in the Health Information Management department at [phone] for further assistance in locating additional records.[facility] Allergies Comments Active Allergy Reactions Severity Noted Date Amitriptyline DIZZINESS Low 01/23/2015 Sulfamethoxazole-Trimetho UNKNOWN Low 01/23/2015 prim Ciprofloxacin HIVES Medium 01/23/2015 Iodinated Contrast- Oral UNKNOWN Low 01/17/2018 And Iv Dye Erythromycin UNKNOWN Low 01/23/2015 Metronidazole UNKNOWN Low 01/23/2015 Nitrofurantoin RASH Medium 01/23/2015 Monohyd/M-Cryst Medications End Date Status Medication Sig Dispensed Refills Start Date Active chlorthalidone (HYGROTON) Take 25 mg by 0 25 mg tablet mouth daily. Active AMLODIPINE BESYLATE Take 5 mg by 0 (BULK) MISC mouth daily. Active cyclobenzaprine Take 10 mg by 0 (FLEXERIL) 10 mg tablet mouth three times daily as needed for Muscle Cramps. Active meclizine (ANTIVERT) 25 Take 25 mg by 0 mg tablet mouth as Needed. Active DOCOSAHEXANOIC ACID/EPA Take 1,000 mg 0 (FISH OIL PO) by mouth daily. Active pravastatin (PRAVACHOL) Take 40 mg by 0 40 mg tablet mouth daily. Active polyethylene glycol 3350 Take 17 g by 0 (MIRALAX) 17 gram/dose mouth daily. powder Active HYDROcodone/acetaminophen Take 1 tablet 0 (NORCO) 5/325 mg tablet by mouth every 4 hours as needed for Pain Active naproxen (NAPROSYN) 500 Take 500 mg 0 mg tablet by mouth twice daily with meals. Take with food. Active Problems No known active problems Social History Date Tobacco Use Types Packs/Day Years Used Never Smoker Smokeless Tobacco: Never Used Alcohol Use Drinks/Week oz/Week Comments No Sex Assigned at Date Recorded Not on file Industry Job Start Date Occupation Not on file Not on file Not on file Travel End Travel History Travel Start No recent travel history available. Last Filed Vital Signs Time Taken Vital Sign Reading 01/17/2018 3:13 PM CDT Blood Pressure 142/88 01/17/2018 3:13 PM CDT Pulse 85 01/27/2015 9:53 AM CDT Temperature 36.3 C (97.4 F) 01/27/2015 9:53 AM CDT Respiratory Rate 18 01/27/2015 9:53 AM CDT Oxygen Saturation 98% - Inhaled Oxygen - Concentration 01/17/2018 3:13 PM CDT Weight 81.6 kg (180 lb) 01/17/2018 3:13 PM CDT Height 157.5 cm (5' 2") 01/17/2018 3:13 PM CDT Body Mass Index 32.92 Plan of Treatment Health Maintenance Due Date Last Done Comments HEPATITIS C SCREENING 1957 PHYSICAL (COMPREHENSIVE) 1964 EXAM HIV SCREENING 1972 DTAP/TDAP VACCINES (1 - 1975 Tdap) CERVICAL CANCER SCREENING 1987 BREAST CANCER SCREENING 1997 COLORECTAL CANCER 2007 SCREENING SHINGLES RECOMBINANT 2007 VACCINE (1 of 2) INFLUENZA VACCINE 11/08/2018 Results Not on filefrom Last 3 Months Advance Directives Patient has advance care planning documents on file. For more information, please contact: [facility] [address] [place] [address]
--- OUTSIDE RECORDS SUMMARY | 2018-06-10 04:37 | XMS REPORT ---
Author Author SIMA HODGES [facility] Address [address] [place] [address] Care Team Providers Care Division Commander Name Role Phone SIMA HODGES Unavailable PROBLEMS Type Condition ICD9-CM Code WVT59-TG Code Onset Dates Condition Status SNOMED Code Problem Anxiety F41.9 Active 45692265 Problem Abnormal glucose R73.09 Active 245900899 Problem 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 Active 684425104 Problem Hypokalemia E87.6 Active 60691104 Problem Neck pain M54.2 Active 47880401 Problem 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 Active 376654854111 Problem Mixed hyperlipidemia E78.2 Active 12110475 Problem Essential hypertension I10 Active 09152333 ALLERGIES No Information ENCOUNTERS Encounter Location Date Diagnosis [place] [address] 66197- 9057 Oct, [place] [address] 87667- 4404 Sep, Abnormal glucose R73.09 [place] [address] 29280- 5626 August, Lateral epicondylitis, right elbow M77.11 [place] [address] [place] [id number] [place] [address] 41177- 3170 August, Screen for STD (sexually transmitted disease) Z11.3 [place] [address] 28050- 0316 August, 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 ; Mixed hyperlipidemia E78.2 ; Elevated fasting glucose R73.01 ; Screening mammogram, encounter for Z12.31 and Encounter for well woman exam without gynecological exam Z00.00 [place] [address] [place] [id number] [place] [address] 31584- 9136 August, 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 [place] [address] [place] [id number] [place] [address] 58473- 3635 August, Essential hypertension I10 ; Hypokalemia E87.6 and Mixed hyperlipidemia E78.2 [place] [address] 66243- 6506 Jul, [place] [address] 14019- 2951 Jul, 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 [place] [address] 87235- 5323 Jul, Lateral epicondylitis, right elbow M77.11 [place] [address] [place] [id number] [place] [address] 34613- 2193 Jul, [place] [address] 86686- 7423 Jun, High ankle sprain of right lower extremity, initial encounter S93.431A [place] [address] [place] [id number] [place] [address] 96688- 8904 Jun, Essential hypertension I10 [place] [address] [place] [id number] [place] [address] 76413- 8479 Jun, [place] [address] [place] [id number] [place] [address] 06851- 2549 Jun, [place] [address] [place] [id number] [place] [address] 99863- 2545 Jun, 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 [facility] [address] [place] [id number] [place] [address] 63957- 6964 Jun, Pain of right upper extremity M79.601 and Essential hypertension I10 [place] [address] [place] [id number] [place] [address] 49668- 5568 Jun, [place] [address] [place] [id number] [place] [address] 51896- 8525 Jun, Dysuria R30.0 ; Acute cystitis with hematuria N30.01 and Screen for STD (sexually transmitted disease) Z11.3 [place] [address] [place] [id number] [place] [address] 77887- 7660 May, 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 [place] [address] 20821- 6171 May, Essential hypertension I10 [address] 93655- 2186 May, 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 49360- 5942 Apr, Allergic reaction, initial encounter T78.40XA [place] [address] 43589- 5110 Apr, Low back pain, unspecified back pain laterality, unspecified chronicity, with sciatica presence unspecified M54.5 ; Acute cystitis with hematuria N30.01 ; 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 ; Bilateral acute serous otitis media, recurrence not specified H65.03 ; Mixed hyperlipidemia E78.2 ; Essential hypertension I10 ; Immunization counseling Z71.89 and Encounter for immunization Z23 [place] [address] [place] [id number] [place] [address] 91441- 9015 Apr, Neck pain M54.2 [place] [id number] [place] [address] 12989- 0342 Mar, 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 [place] [address] 73508- 9793 Mar, Pharyngitis due to other organism J02.[address] 46000- 3118 Feb, 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 [facility] [address] [address]- 0739 Feb, UTI (urinary tract infection) N39.0 [facility] [address] [facility] [id number] [place] [address] 91738- 7045 Feb, Recent urinary tract infection Z87.440 ; 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 ; Neck pain M54.2 ; 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 and Recurrent UTI N39.0 [facility] [id number] [place] [address] 34906- 2947 Feb, [facility] [address] [place] [id number] [place] [address] 95380- 3100 Jan, 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 [facility] [address] [place] [id number] [place] [address] 56224- 7839 Dec, 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 [facility] [id number] [place] [address] 49009- 9744 Dec, Acute seasonal allergic rhinitis due to pollen J30.1 [facility] [id number] [place] [address] 61360- 0145 Dec, [facility] [address] [place] [id number] [place] [address] 37057- 9522 Dec, Acute seasonal allergic rhinitis, unspecified trigger J30.2 ; Allergic conjunctivitis of both eyes H10.13 and Dysfunction of both eustachian tubes H69.83 [facility] [address] [place] [id number] [place] [address] 47300- 6516 Dec, [facility] [address] [place] [id number] [place] [address] 27880- 5045 Dec, Nevus D22.9 [facility] [address] [place] [id number] [place] [address] 32613- 2974 Nov, 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 and 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 [facility] [address] [place] [id number] [place] [address] 79599- 4791 Nov, 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 ; Essential hypertension I10 ; Mixed hyperlipidemia E78.2 ; Hypokalemia E87.6 ; Neck pain M54.2 and Nevus D22.9 [facility] [address] [place] [id number] [place] [address] 92287- 5764 Oct, 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 [facility] [address] [place] [id number] [place] [address] 38610- 8003 Sep, 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 [facility] [address] [place] [id number] [place] [address] 39989- 9109 Sep, [facility] [address] [place] [id number] [place] [address] 80593- 2424 August, [facility] [address] [place] [id number] [place] [address] 45898- 6475 August, Neck pain M54.2 and 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 [facility] [address] [place] [id number] [place] [address] 03335- 0368 August, Routine gynecological examination Z01.419 and Screening breast examination Z12.39 [facility] [address] [place] [id number] [place] [address] 67748- 4133 Jul, [facility] [address] [place] [id number] [place] [address] 19939- 254 Jul, [facility] [address] [place] [id number] [place] [address] 66871- 2285 Jul, 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 [facility] [address] [place] [id number] [place] [address] 83330- 8879 Jul, [facility] [address] [place] [address]- 3981 Jul, 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 [place] [address] 99373- 5956 Jul, [place] [address] [place] [id number] [place] [address] 78240- 8705 Jul, [place] [address] 09383- 5883 Jun, 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 [place] [address] 66091- 3739 Jun, Uterine leiomyoma, unspecified location D25.9 and Allergic reaction caused by a drug, initial encounter T78.40XA [place] [address] 64406- 7246 Jun, [place] [address] 44596- 9152 May, UTI symptoms R39.9 and Pain of right sacroiliac joint M53.3 [place] [address] 82351- 7310 May, 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 [place] [address] [place] [id number] [place] [address] 41539- 5617 May, [place] [address] [place] [id number] [place] [address] 41807- 8186 May, Acute mucoid otitis media of left ear H65.112 and Acute non- recurrent maxillary sinusitis J01.00 [place] [address] 49945- 0407 May, Acute bacterial conjunctivitis of both eyes H10.33 ; Left arm pain M79.602 and Hypokalemia E87.6 [place] [address] 64071- 8929 Apr, [facility] [address] [place] [id number] [place] [address] 02605- 4466 Apr, 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 ; Neck pain M54.2 ; 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 ; Mixed hyperlipidemia E78.2 ; Essential hypertension I10 and Hypokalemia E87.6 [place] [address] [place] [id number] [place] [address] 08480- 6034 Mar, Oral candidiasis B37.0 ; 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 ; Neck pain M54.2 and 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 [place] [address] [place] [id number] [place] [address] 41714- 6231 Feb, [place] [address] [place] [id number] [place] [address] 97481- 3915 Feb, [facility] [address] 34185- 7565 Feb, UTI (urinary tract infection) N39.0 [place] [address] [place] [id number] [place] [address] 80092- 5594 Feb, Dysuria R30.0 [place] [address] [place] [id number] [place] [address] 72965- 9593 Feb, Dysuria R30.0 [place] [address] [place] [id number] [place] [address] 89525- 4862 Feb, 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 ; Neck pain M54.2 ; Essential hypertension I10 ; 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 ; Dysuria R30.0 ; Abnormal MRI, shoulder R93.8 and Acute cystitis without hematuria N30.00 [facility] [address] [place] [id number] [place] [address] 78800- 2708 Jan, [facility] [address] [place] [id number] [place] [address] 11855- 6452 Jan, [facility] [address] [place] [id number] [address]- 7148 Jan, [facility] [address] [place] [id number] [place] [address] 42729- 7143 Jan, Abnormal MRI R93.8 [facility] [address] [place] [id number] [place] [address] 03789- 4532 29 Dec, 2015 [facility] [address] [place] [id number] [place] [address] 40019 -0405 15 Dec, 2015 Acute pain of left shoulder M25.512 [facility] [address] [place] [id number] [place] [address] 79489- 3491 09 Dec, 2015 [facility] [address] [place] [id number] [place] [address] 33108- 9448 08 Dec, 2015 [facility] [address] [place] [id number] [place] [address] 56850- 0385 07 Dec, 2015 Acute pain of left shoulder M25.512 [facility] [address] [place] [id number] [place] [address] 33894- 1902 Nov, [facility] [address] [place] [id number] [place] [address] 07253- 6524 Nov, 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 ; Neck pain M54.2 ; Abnormal mammogram R92.8 ; Essential hypertension I10 and 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 [facility] [address] [place] [id number] [place] [address] 29331- 3063 Nov, [facility] [address] [place] [id number] [place] [address] 74093- 5455 Oct, Acute stress disorder F43.0 [facility] [address] [place] [id number] [place] [address] 00651- 4558 Oct, [facility] [id number] [place] [address] 58984- 9430 Oct, [facility] [address] [place] [id number] [place] [address] 53516- 7764 Oct, [facility] [address] [address]- 4513 Sep, [facility] [address] [address]- 8512 August, [facility] [address] [address]- 4366 Jul, 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 ; Neck pain M54.2 ; Abnormal mammogram R92.8 and Essential hypertension I10 [facility] [address] [address]- 2927 Jul, [facility] [id number] [place] [address] 03338- 8401 Jul, [facility] [id number] [place] [address] 83483- 6237 Jul, Abnormal mammogram R92.8 [facility] [address], [place] [address]- 7771 Jul, [facility] [id number] [place] [address] 36766- 4118 Jul, UTI (urinary tract infection) N39.0 [facility] [address] [address]- 5182 Jul, Dysuria R30.0 [facility] [address] [address]- 0813 Jun, [facility] [address] [address]- 5601 Jun, [facility] [address], [place] [address]- 1637 Jun, Hypokalemia E87.6 and Hematuria R31.9 [facility] [address] [address]- 9144 Jun, Hypokalemia E87.6 [place] [address] [address]- 8596 Jun, [place] [address] [place] [id number] [place] [address] 53820- 9193 Jun, Hypokalemia E87.6 [place] [address] [address]- 0124 Jun, Hypokalemia E87.6 [place] [address] [place] [id number] [place] [address] 13060- 2791 Jun, 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 ; Hypokalemia E87.6 ; Neck pain M54.2 ; Essential hypertension I10 ; Mixed hyperlipidemia E78.2 and Screening breast examination Z12.39 [place] [id number] [place] [address] 44203- 9124 Jun, Dysuria R30.0 ; UTI (urinary tract infection) N39.0 and Hematuria R31.9 [place] [id number] [place] [address] 49088- 1612 May, [place] [id number] [place] [address] 41483- 7149 May, High risk sexual behavior Z72.51 ; Hypokalemia E87.6 ; 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 ; Neck pain M54.2 ; Essential hypertension I10 ; Mixed hyperlipidemia E78.2 ; STD exposure Z20.2 and Concern about STD in female without diagnosis Z71.1 [place] [id number] [place] [address] 63083- 7993 May, 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 ; Neck pain M54.2 ; Hypokalemia E87.6 ; Essential hypertension I10 and Mixed hyperlipidemia E78.2 [place] [address], [place] [address]- 9657 May, [facility] [address] [place] [id number] [place] [address] 92019 -9537 08 May, 2015 High risk sexual behavior Z72.51 ; STD exposure Z20.2 and Concern about STD in female without diagnosis Z71.1 [place] [id number] [place] [address] 78325- 5258 05 May, 2015 [facility] [address] [place] [id number] [place] [address] 51302- 0423 Apr, 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 ; Mixed hyperlipidemia E78.2 ; Essential hypertension I10 and Hypokalemia E87.6 [place] [address] [place] [id number] [place] [address] 25850- 0355 Mar, [place] [address] [place] [id number] [place] [address] 16671- 5822 Mar, Hypokalemia E87.6 [place] [address] [place] [id number] [place] [address] 18915- 9829 Mar, 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 ; Mixed hyperlipidemia E78.2 ; Neck pain M54.2 ; Essential hypertension I10 ; Abnormal fasting glucose R73.09 ; Hypokalemia E87.6 and Constipation K59.00 [place] [id number] [place] [address] 58538- 7795 Feb, 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 ; Mixed hyperlipidemia E78.2 ; Neck pain M54.2 ; Essential hypertension I10 ; Abnormal fasting glucose R73.09 ; Hypokalemia E87.6 and Constipation K59.00 [place] [id number] [place] [address] 15581- 5233 Feb, Elevated fasting blood sugar R73.01 [place] [address] [place] [id number] [place] [address] 67844- 7493 Feb, Elevated fasting blood sugar R73.01 [place] [address] [place] [id number] [place] [address] 44213- 5712 Feb, Hair loss L65.9 [place] [address] 18260- 9817 Feb, Sinusitis J32.9 ; Essential hypertension I10 and Hair loss L65.9 [facility] [address] [place] [id number] [place] [address] 41618- 8084 Jan, [place] [address] 39910- 8995 Jan, Essential hypertension I10 ; 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 ; Neck pain M54.2 ; Mixed hyperlipidemia E78.2 and Anxiety F41.9 [place] [address] 37968- 3548 Jan, [place] [address] 72814- 4894 Jan, Mixed hyperlipidemia E78.2 ; Essential (primary) hypertension I10 ; Strain of muscle, fascia and tendon at neck level, subsequent encounter S16.1XXD and Tension-type headache, unspecified, not intractable G44.209 [place] [address] 51513- 6298 Dec, Lumbar back pain 724.2 and Neuroforaminal stenosis of spine 724.00 [place] [address] 11950- 6440 Nov, [place] [address] 19823- 5042 Nov, Lumbar back pain 724.2 and Neuroforaminal stenosis of spine 724.00 [place] [address] 78466- 7687 Nov, Edema 782.3 ; Lumbar back pain 724.2 ; Essential hypertension, benign 401.1 ; Hyperlipemia 272.4 ; Neuroforaminal stenosis of spine 724.00 and Post-concussion headache 339.20 [place] [address] [place] [address]- 6554 Nov, [facility] [address] [place] [id number] [place] [address] 54434- 1489 Nov, [facility] [address] [place] [id number] [place] [address] 15897- 5085 Oct, Essential hypertension, benign 401.1 [facility] [address] [place] [id number] [place] [address] 39549- 3556 Oct, Edema 782.3 ; Lumbar back pain 724.2 ; Essential hypertension, benign 401.1 ; Hyperlipemia 272.4 ; Neuroforaminal stenosis of spine 724.00 and Post-concussion headache 339.20 [facility] [address] [place] [id number] [place] [address] 94810- 3032 Oct, [facility] [address] [place] [id number] [place] [address] 45439- 2121 Oct, Edema 782.3 [facility] [address] [place] [id number] [place] [address] 00194- 9566 Oct, Lumbar back pain 724.2 [place] [address] [place] [id number] [place] [address] 99519- 8043 Oct, Cervicalgia 723.1 ; Lumbar back pain 724.2 and High risk medication use V58.69 [place] [address] [place] [id number] [place] [address] 77471- 5894 Sep, [facility] [address] [place] [id number] [place] [address] 58456- 8949 Sep, Lumbar strain 847.2 [facility] [address] [place] [id number] [place] [address] 52001- 9249 August, Edema 782.3 and Eustachian tube dysfunction 381.81 [facility] [address] [place] [id number] [place] [address] 71762- 0188 August, [facility] [address] [place] [id number] [place] [address] 55216- 5960 August, Eustachian tube dysfunction 381.81 [facility] [id number] [place] [address] 24775- 4700 Jul, Otalgia 388.70 and Otitis media 382.9 [facility] [address] [facility] [id number] [address]- 2476 Jul, [facility] [address] [place] [id number] [place] [address] 63928- 1773 Jul, [facility] [address] [place] [id number] [address]- 7743 Jul, [facility] [id number] [place] [address] 44552- 7137 Jul, [facility] [address] [address]- 7876 Jul, [facility] [id number] [place] [address] 92725- 9698 Jun, [facility] [id number] [address] Jun, [facility] [id number] [address] Jun, [facility] [id number] [address] May, [facility] [id number] [address] May, [facility] [id number] [address] [address] May, [facility] [id number] [address] May, [facility] [place] [facility] [id number] [address] May, [facility] [id number] [place] [address] May, [facility] [place] [facility] [address] [id number] [place] [address] May, [facility] [place] [facility] [address] [id number] [place] [address] May, [facility] [place] [facility] [address] [id number] [place] [address] May, [facility] [place] [facility] [address] [id number] [place] [address] May, [facility] [place] [facility] [address] [id number] [place] [address]- [address] Apr, [facility] [place] [facility] [address] [id number] [place] [address] Apr, [facility] [place] [facility] [address] [id number] [place] [address]- [address] Apr, [facility] [place] [facility] [address] [id number] [place] [address] Apr, [facility] [place] [facility] [address] [id number] [place] [address]- [address] Apr, [facility] [place] [facility] [address] [facility] [id number] [place] [address] Apr, [facility] [place] [facility] [address] [id number] [place] [address] Apr, [facility] [place] [facility] [address] [id number] [place] [address] Apr, [facility] [place] [facility] [address] [id number] [place] [address]- [address] Apr, [facility] [place] [facility] [address] [id number] [place] [address]- [address] Apr, [facility] [place] [facility] [address] [id number] [place] [address]- [address] Apr, [facility] [place] [facility] [address] [id number] [place] [address] Apr, [facility] [place] [facility] [address] [id number] [place] [address] 7864 Apr, [facility] [place] [facility] [address] [id number] [place] [address] 1313 Apr, [facility] [place] [facility] [address] [id number] [place] [address] 7002 Apr, [facility] [place] [facility] [address] [id number] [place] [address] Mar, [facility] [place] [facility] [address] [id number] [place] [address] 2666 Mar, [facility] [place] [facility] [address] [id number] [place] [address] 5314 Mar, [facility] [place] [facility] [address] [id number] [place] [address] 5279 Mar, [facility] [place] [facility] [address] [id number] [place] [address] 1156 Feb, [facility] [place] [facility] [address] [id number], [place] [address]40 Feb, [facility] [place] [facility] [address] [facility] [id number][place] [address] 1083 Feb, [facility] [place] [facility] [address] [id number], [place] [address] 4055 Feb, [facility] [place] [facility] [address] [id number] [place] [address] 9352 Jan, [facility] [place] [facility] [address] [id number], [place] [address] 287[address] Jan, [facility] [place] [facility] [address] [facility] [id number], [place] [address] 0379 Jan, [facility] [place] [facility] [address] [id number], [place] [address] 2733 Jan, [facility] [place] [facility] [address] [id number] [place] [address]- 4736 Jan, [facility] [place] [facility] [address] [id number] [place] [address]- 4573 Jan, [facility] [place] [facility] [address] [id number] [place] [address]- 0436 Jan, [facility] [place] [facility] [address] [id number] [place] [address] 9203 Jan, [facility] [place] [facility] [address] [id number] [place] [address]- 8201 Dec, [facility] [place] [facility] [address] [id number] [place] [address]- 6682 Dec, [facility] [place] [facility] [address] [id number] [place] [address]- 6123 Dec, [facility] [place] [facility] [address] [id number] [place] [address]- 0294 Dec, [facility] [place] [facility] [address] [id number] [place] [address] 1457 Oct, [facility] [place] [facility] [address] [id number] [place] [address]- 1393 Oct, [facility] [place] [facility] [address] [id number] [place] [address]- 1174 Oct, [facility] [place] [facility] [address] [id number] [place] [address]- 7653 Oct, [facility] [place] [facility] [address] [id number] [place] [address]- 2123 Oct, [facility] [place] [facility] [address] [id number] [place] [address]- 4290 Oct, [facility] [place] [facility] [address] [id number] [place] [address]- 3310 Oct, [facility] [place] [facility] [address] [id number] [place] [address]- 5835 Oct, [facility] [place] [facility] [address] [id number] [place] [address]- 8075 Sep, [facility] [place] [facility] [address] [id number] [place] [address]- 7626 Sep, [facility] [place] [facility] [address] [id number] [place] [address]- 6819 Sep, [facility] [place] [facility] [address] [id number] [place] [address]- 1842 Sep, [facility] [place] [facility] [address] [id number] [place] [address]- 7004 Sep, [facility] [place] [facility] [address] [id number] [place] [address]- 9140 Sep, [facility] [place] [facility] [address] [id number] [place] [address]- 8575 Sep, [facility] [place] [facility] [address] [id number] [place] [address]- 6816 Sep, [facility] [place] [facility] [address] [id number] [place] [address]- 8382 Sep, [facility] [place] [facility] [address] [id number] [place] [address] 5308 Sep, [facility] [place] [facility] [address] [id number] [place] [address]- 7092 August, [facility] [place] [facility] [address] [id number] [place] [address]- 8790 August, [facility] [place] [facility] [address] [id number] [place] [address]- 7159 August, [facility] [place] [facility] [address] [id number] [place] [address]- 0021 August, [facility] [place] [facility] [address] [id number] [place] [address]- 8422 August, [facility] [place] [facility] [address] [id number] [place] [address]- 5979 August, [facility] [place] [facility] [address] [id number] [place] [address]- 5298 August, [facility] [place] [facility] [address] [id number] [place] [address]- 3212 August, [facility] [place] [facility] [address] [id number] [place] [address]- 6123 August, [facility] [place] [facility] [address] [id number] [place] [address]- 0931 August, [facility] [place] [facility] [address] [id number] [place] [address]- 9582 August, [facility] [place] [facility] [address] [id number] [place] [address]- 8189 August, [facility] [place] [facility] [address] [id number] [place] [address]- 0409 Jul, [facility] [place] [facility] [address] [id number] [place] [address]- 2652 Jul, [facility] [place] [facility] [address] [id number] [place] [address]- 7434 Jul, [facility] [place] [facility] [address] [id number] [place] [address]- 9041 Jul, [facility] [place] [facility] [address] [id number] [place] [address] 1929 Jul, [facility] [place] [facility] [address] [id number] [place] [address] 9010 Jul, [facility] [place] [facility] [address] [id number] [place] [address]- 4198 Jun, [facility] [place] [facility] [address] [id number] [place] [address]- 5027 Jun, [facility] [place] [facility] [address] [id number] [place] [address]- 9729 10 May, 2013 [facility] [address] [id number] [place] [address]- 6059 May, [facility] [place] [facility] [address] [id number] [place] [address]- 6512 Apr, [facility] [address] [id number] [place] [address]- 8193 Apr, [facility] [place] [facility] [address] [id number] [place] [address]- 2368 Apr, [facility] [place] [facility] [address] [id number] [place] [address]- 7410 Apr, [facility] [place] [facility] [address] [id number] [place] [address]- 8844 Apr, [facility] [address] [id number] [place] [address]- 1880 Apr, [facility] [address] [id number] [place] [address]- 9193 Apr, [facility] [place] [facility] [address] [id number] [place] [address]- 1529 Apr, [facility] [place] [facility] [address] [id number] [place] [address]- 8719 Apr, [facility] [place] [facility] [address] [id number] [place] [address]- 4105 Apr, [facility] [place] [facility] [address] [id number] [place] [address]- 1046 Apr, [facility] [place] [facility] [address] [id number] [place] [address]- 3097 Apr, [facility] [place] [facility] [address] [id number] [place] [address]- 3075 Apr, [facility] [place] [facility] [address] [id number] [place] [address]- 1073 Mar, [facility] [place] [facility] [address] [id number] [place] [address]- 6037 Mar, [facility] [place] [facility] [address] [id number] [place] [address] Mar, [facility] [place] [facility] [address] [id number] [place] [address]- 9876 Mar, [facility] [place] [facility] [address] [id number] [place] [address]- 0032 Feb, [facility] [place] [facility] [address] [id number] [place] [address]- 6048 Feb, [facility] [place] [facility] [address] [id number] [place] [address]- 3766 Feb, [facility] [place] [facility] [address] [id number] [place] [address]- 4071 Feb, [facility] [place] [facility] [address] [id number] [place] [address]- 9083 Jan, [facility] [place] [facility] [address] [id number] [place] [address]- 1047 Jan, [facility] [place] [facility] [address] [id number] [place] [address]- 3822 Jan, [facility] [place] [facility] [address] [id number] [place] [address]- 8782 Jan, [facility] [place] [facility] [address] [id number], [place] [address]- 9384 Jan, [facility] [place] [facility] [address] [id number] [place] [address]- 0309 Jan, [facility] [place] [facility] [address] [id number] [place] [address]- 2111 Jan, [facility] [place] [facility] [address] [id number][place]661 Jan, [facility] [place] [facility] [address] [id number], [place] [address]- 9694 Jan, [facility] [address] [id number] [place] [address]- 6382 26 Dec, 2012 [facility] [place] [facility] [address] [id number] [place] [address] 16 Dec, 2012 [facility] [place] [facility] [address] [id number] [place] [address]- 5768 16 Dec, 2012 [facility] [place] [facility] [address] [id number] [place] [address]- 3331 13 Dec, 2012 [facility] [place] [facility] [address] [id number] [place] [address]- 2405 Nov, [facility] [place] [facility] [address] [id number] [place] [address]- 6082 Nov, [facility] [address] [id number] [place] [address]- 6544 Nov, [facility] [place] [facility] [address] [id number] [place] [address]- 0420 Nov, [facility] [place] [facility] [address] [id number] [place] [address]- 4716 Oct, [facility] [place] [facility] [address] [id number] [place] [address]- 6335 Sep, [facility] [place] [facility] [address] [id number] [place] [address]- 6201 August, [facility] [place] [facility] [address] [id number] [place] [address]- 0949 August, [facility] [place] [facility] [address] [id number] [place] [address]- 8462 August, [facility] [place] [facility] [address] [id number] [place] [address]- 5495 August, [facility] [place] [facility] [address] [id number] [place] [address]- 5243 August, [facility] [place] [facility] [address] [id number] [place] [address]- 0135 14 Aug, 2012 [facility] [address] [id number] [place] [address]- 8814 August, [facility] [address] [id number] [place] [address]- 6856 August, [facility] [address] [id number] [place] [address]- 9023 August, [facility] [address] [id number] [place] [address]- 7190 August, [facility] [address] [id number] [place] [address]- 3079 August, [facility] [address] [id number] [place] [address]- 0299 August, [facility] [address] [id number] [place] [address]- 7690 Jul, [facility] [address] [id number] [place] [address]- 1288 Jul, [facility] [address] [id number] [place] [address]- 6674 18 Jul, 2012 [facility] [address] [id number] [place] [address]- 6035 15 Jul, 2012 [facility] [address] [id number] [place] [address]- 0841 Jul, [facility] [address] [id number] [place] [address]- 9159 Jul, [facility] [address] [id number] [place] [address]- 8909 04 Jul, 2012 [facility] [address] [id number] [place] [address]- 7043 Jul, [facility] [address] [id number] [place] [address]- 1068 Jul, [facility] [address] [id number] [place] [address]- 0758 Jul, [facility] [place] [facility] [address] [id number] [place] [address]- 3816 Jul, [facility] [place] [facility] [address] [id number] [place] [address]- 6654 Jun, [facility] [place] [facility] [address] [id number] [place] [address]- 7948 Jun, [facility] [place] [facility] [address] [id number] [place] [address]- 0092 Jun, [facility] [place] [facility] [address] [id number] [place] [address]- 8696 Jun, [facility] [place] [facility] [address] [id number] [place] [address]- 3518 May, [facility] [place] [facility] [address] [id number] [place] [address]- 8638 May, [facility] [place] [facility] [address] [id number] [place] [address]- 7403 May, [facility] [place] [facility] [address] [id number] [place] [address]- 7010 May, [facility] [place] [facility] [address] [id number] [place] [address]- 9966 May, [facility] [place] [facility] [address] [id number] [place] [address]- 2546 May, [facility] [place] [facility] [address] [id number] [place] [address]- 4686 Apr, [facility] [place] [facility] [address] [facility] [id number] [place] [address]- 3946 Apr, [facility] [place] [facility] [address] [facility] [id number] [place] [address]- 9836 Apr, [facility] [place] [facility] [address] [id number] [place] [address]- 7350 Apr, [facility] [address] [id number] [place] [address]- 8717 15 Mar, 2012 [facility] [place] [facility] [address] [id number] [place] [address]- 8656 14 Mar, 2012 [facility] [address] [id number] [place] [address]- 6336 14 Mar, 2012 [facility] [place] [facility] [address] [id number] [place] [address]- 3084 14 Mar, 2012 [facility] [address] [id number] [place] [address]- 4451 Mar, [facility] [address] [id number] [place] [address]- 2341 Mar, [facility] [place] [facility] [address] [id number] [place] [address]- 1516 Mar, [facility] [address] [id number] [place] [address]- 2544 Feb, [facility] [place] [facility] [address] [id number] [place] [address]- 9573 Feb, [facility] [address] [id number] [place] [address]- 4454 Feb, [facility] [place] [facility] [address] [id number] [place] [address]- 7272 Feb, [facility] [place] [facility] [address] [id number] [place] [address]- 1730 Jan, [facility] [place] [facility] [address] [id number] [place] [address]- 9666 11 Jan, 2012 [facility] [place] [facility] [address] [id number] [place] [address]- 6494 10 Jan, 2012 [facility] [place] [facility] [address] [id number] [place] [address]- 7728 Jan, [facility] [place] [facility] [address] [id number] [place] [address]- 2218 Jan, [facility] [place] [facility] [address] [id number] [place] [address]- 4606 Jan, [facility] [place] [facility] [address] [id number] [place] [address]- 2986 Dec, [facility] [place] [facility] [address] [id number] [place] [address]- 3716 Dec, [facility] [place] [facility] [address] [id number] [place] [address]- 1770 Nov, [facility] [place] [facility] [address] [id number] [place] [address]- 5876 Sep, [facility] [place] [facility] [address] [id number] [place] [address]- 2246 August, [facility] [place] [facility] [address] [id number] [place] [address]- 5743 August, [facility] [place] [facility] [address] [id number] [place] [address]- 1782 August, [facility] [place] [facility] [address] [id number] [place] [address]- 1517 August, [facility] [place] [facility] [address] [id number] [place] [address]- 6665 August, [facility] [place] [facility] [address] [id number], [place] [address]- 0826 Jun, [facility] [place] [facility] [address] [id number] [place] [address]- 3436 Jun, [facility] [place] [facility] [address] [id number] [place] [address]- 4066 Apr, [facility] [place] [facility] [address] [id number] [place] [address]- 2084 Apr, [facility] [place] [facility] [address] [id number], [place] [address]- 0413 23 Mar, 2011 [facility] [address] [facility] [id number] [place] [address]- 5169 Feb, [facility] [address] [facility] [id number], [place] [address]- 5856 14 Feb, 2011 [facility] [address] [facility] [id number], [place] [address]- 9466 14 Feb, 2011 [facility] [address] [facility] [id number], [place] [address]- 3882 17 Jan, 2011 [facility] [address] [facility] [id number] [place] [address]- 3571 15 Jan, 2011 [facility] [address] [facility] [id number], [place] [address]- 5708 15 Jan, 2011 [facility] [address] [id number], [place] [address]- 1103 14 Jan, 2011 [facility] [address] [facility] [id number], [place] [address]- 6881 15 May, 2010 [facility] [address] [id number], [place] [address]- 9801 Mar, [facility] [address] [facility] [id number], [place] [address]- 2733 Oct, [facility] [address] [facility] [id number], [place] [address]- 5372 Sep, [facility] [address] [facility] [id number], [place] [address]- 6869 Mar, [facility] [address] [facility] [id number][place] [address]- 6077 Jan, [facility] [address] [facility] [id number], [place] [address]- 0647 Jan, [facility] [address] [id number], [place] [address]- 7429 19 May, 2008 IMMUNIZATIONS No Known Immunizations SOCIAL HISTORY Never Assessed REASON FOR VISIT Controlled Med Refill PLAN OF CARE VITAL SIGNS MEDICATIONS Medication Instructions Dosage Frequency Start Date End Date Duration Status Hydrocodone-Acetaminophen 5-325 MG Orally 3 -4 times a day prn. must last 4 weeks 1 tablet as needed Mar, Active RESULTS No Results PROCEDURES No Known procedures INSTRUCTIONS MEDICATIONS ADMINISTERED No Known Medications MEDICAL (GENERAL) HISTORY Type Description Date Medical History hypertension Medical History Colposcopy with loop electrode excision of the cervix was performed 06/2012, mild squamous atypia (no definite dyplasia). Performed at [facility] Dr. Joy. Medical History Acute suppurative otitis media without spontaneous rupture of eardrum Medical History vitamin D deficiency Medical History allergic rhinitis Medical History anxiety Medical History hyperlipidemia Medical History esophageal reflux Medical History Abnormal MRI, shoulder Medical History Abnormal ultrasound of uterus Surgical History tubal ligation 1988 Surgical History orthopedic surgery- carpal tunnel june 2009, ligament/ tendons cut in index finger sometime in the . Surgical History colonoscopy 04-28-15 Hospitalization History hospitalizations for surgeries only
--- OUTSIDE RECORDS SUMMARY | 2018-06-10 04:38 | XMS REPORT ---
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 Name Role Phone SIMA HODGES Unavailable PROBLEMS Type Condition ICD9-CM Code IOO34-CU Code Onset Dates Condition Status SNOMED Code Problem Abnormal glucose R73.09 Active 765474863 Problem Anxiety F41.9 Active 72986818 Problem 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 Active 394638536565 Problem Abnormal ultrasound of uterus R93.5 Active 500486340 Problem Abnormal MRI, shoulder R93.8 Active 271131483 Problem 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 Active 812197604 Problem Essential hypertension I10 Active 66398297 Problem Neck pain M54.2 Active 58685334 Problem Hypokalemia E87.6 Active 30949539 Problem Mixed hyperlipidemia E78.2 Active 40524383 ALLERGIES No Information ENCOUNTERS Encounter Location Date Diagnosis [place] [id number] [place] [address] 07394- 6693 August, [place] [id number] [place] [address] 74712- 6130 Jul, 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 [facility] [id number] [place] [address] 37863- 3306 Jul, Lateral epicondylitis, right elbow M77.11 [place] [id number] [place] [address] 14173- 1593 Jul, [place] [address] 49294- 8170 Jun, High ankle sprain of right lower extremity, initial encounter S93.431A [place] [address] 08476- 6179 Jun, Essential hypertension I10 [place] [id number] [place] [address] 61721- 7001 Jun, [place] [id number] [place] [address] 93556- 7343 Jun, [place] [id number] [place] [address] 72509- 8003 Jun, 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 [place] [place] [id number] [place] [address] 99803- 7025 Jun, Pain of right upper extremity M79.601 and Essential hypertension I10 [place] [id number] [place] [address] 36610- 4888 Jun, [place] [id number] [place] [address] 52623- 9774 Jun, Dysuria R30.0 ; Acute cystitis with hematuria N30.01 and Screen for STD (sexually transmitted disease) Z11.3 [place] [id number] [place] [address] 31662- 4875 May, 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 [place] [id number] [place] [address] 67955- 0022 May, Essential hypertension I10 [place] [id number] [place] [address] 89922- 6513 May, 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 [place] [id number] [place] [address] 16565- 2702 Apr, Allergic reaction, initial encounter T78.40XA [facility] [place] [id number] [place] [address] 02724- 5321 Apr, Low back pain, unspecified back pain laterality, unspecified chronicity, with sciatica presence unspecified M54.5 ; Acute cystitis with hematuria N30.01 ; 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 ; Bilateral acute serous otitis media, recurrence not specified H65.03 ; Mixed hyperlipidemia E78.2 ; Essential hypertension I10 ; Immunization counseling Z71.89 and Encounter for immunization Z23 [facility] [id number] [place] [address] 29441- 8255 08 Apr, 2017 Neck pain M54.2 [facility] [id number] [place] [address] 41455- 6215 Mar, 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 [place] [address] 16240- 2111 Mar, Pharyngitis due to other organism J02.8 [place] [id number] [place] [address] 53495- 3102 Feb, 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 [place] [place] [id number] [place] [address] 02319- 7559 Feb, UTI (urinary tract infection) N39.0 [facility] [id number] [place] [address] 13657- 3965 Feb, Recent urinary tract infection Z87.440 ; 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 ; Neck pain M54.2 ; 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 and Recurrent UTI N39.0 [facility] [address] [place] [address] 33110- 5338 Feb, [facility] [id number] [place] [address] 32581- 3941 Jan, 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 [facility] [id number] [place] [address] 25643- 5875 28 Dec, 2016 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 [facility] [id number] [place] [address] 22756- 6065 18 Dec, 2016 Acute seasonal allergic rhinitis due to pollen J30.1 [facility] [id number] [place] [address] 39048- 4572 08 Dec, 2016 [place] [address] 51620- 2977 08 Dec, 2016 Acute seasonal allergic rhinitis, unspecified trigger J30.2 ; Allergic conjunctivitis of both eyes H10.13 and Dysfunction of both eustachian tubes H69.83 [place] [address] 73170- 6933 Dec, [place] [id number] [place] [address] 69533- 6962 Dec, Nevus D22.9 [place] [address] 95882- 0002 Nov, 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 and 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 [place] [address] 60192- 8214 Nov, 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 ; Essential hypertension I10 ; Mixed hyperlipidemia E78.2 ; Hypokalemia E87.6 ; Neck pain M54.2 and Nevus D22.9 [place] [id number] [place] [address] 88407- 3849 Oct, 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 [place] [id number] [place] [address] 23740- 7585 Sep, 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 [place] [id number] [place] [address] 23017- 6557 Sep, [place] [address] 42956- 6119 August, [place] [id number] [place] [address] 88917- 2579 August, Neck pain M54.2 and 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 [place] [address] [address]- 0809 August, Routine gynecological examination Z01.419 and Screening breast examination Z12.39 [facility] [address] [place] [address] 56732- 2686 Jul, [facility] [id number] [place] [address] 96103- 3680 Jul, [facility] [id number] [place] [address] 18362- 5979 Jul, 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 [facility] [id number] [place] [address] 16875- 6211 Jul, [facility] [id number] [place] [address] 35990- 2305 Jul, 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 [facility] [id number] [place] [address] 73453- 0294 Jul, [facility] [address] [place] [address] 73881- 3180 Jul, [facility] [id number] [place] [address] 37980- 2775 Jun, 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 [facility] [address], [place] [address]- 6738 Jun, Uterine leiomyoma, unspecified location D25.9 and Allergic reaction caused by a drug, initial encounter T78.40XA [facility] [address], [place] [address]- 9792 Jun, [facility] [id number] [place] [address] 59730- 1209 May, UTI symptoms R39.9 and Pain of right sacroiliac joint M53.3 [facility] [id number] [place] [address] 74586- 0522 May, 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 [place] [id number] [place] [address] 55666- 3836 May, [place] [id number] [place] [address] 82019- 2551 May, Acute mucoid otitis media of left ear H65.112 and Acute non- recurrent maxillary sinusitis J01.00 [place] [id number] [place] [address] 78710- 8157 May, Acute bacterial conjunctivitis of both eyes H10.33 ; Left arm pain M79.602 and Hypokalemia E87.6 [place] [id number] [place] [address] 59982- 6125 Apr, [place] [id number] [place] [address] 44589- 0925 Apr, 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 ; Neck pain M54.2 ; 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 ; Mixed hyperlipidemia E78.2 ; Essential hypertension I10 and Hypokalemia E87.6 [place] [id number] [place] [address] 89736- 9443 Mar, Oral candidiasis B37.0 ; 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 ; Neck pain M54.2 and 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 [place] [id number] [place] [address] 82368- 8343 Feb, [place] [id number] [place] [address] 05197- 9818 Feb, [place] [id number] [place] [address] 52248- 2057 Feb, UTI (urinary tract infection) N39.0 [place] [id number] [place] [address] 82515- 8209 Feb, Dysuria R30.0 [place] [address], [place] [address]- 5661 08 Feb, 2016 Dysuria R30.0 [facility] [id number] [place] [address] 48695- 1412 Feb, 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 ; Neck pain M54.2 ; Essential hypertension I10 ; 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 ; Dysuria R30.0 ; Abnormal MRI, shoulder R93.8 and Acute cystitis without hematuria N30.00 [facility] [id number] [address]- 5655 Jan, [facility] [id number] [place] [address] 46867- 2327 Jan, [facility] [id number] [place] [address] 69722- 9975 Jan, [facility] [id number] [place] [address] 57013- 1787 Jan, Abnormal MRI R93.8 [facility] [id number] [place] [address] 57677- 7050 29 Dec, 2015 [facility] [id number] [place] [address] 42390 -1748 15 Dec, 2015 Acute pain of left shoulder M25.512 [facility] [id number] [place] [address] 14594- 6903 09 Dec, 2015 [facility] [id number] [place] [address] 29934- 8567 08 Dec, 2015 [facility] [id number] [place] [address] 64115- 1667 07 Dec, 2015 Acute pain of left shoulder M25.512 [facility] [id number] [place] [address] 56286- 1409 Nov, [facility] [id number] [place] [address] 77485- 2918 Nov, 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 ; Neck pain M54.2 ; Abnormal mammogram R92.8 ; Essential hypertension I10 and 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 [facility] [address] [facility] [id number], [place] [address]- 7248 Nov, [facility] [id number] [address]- 8419 Oct, Acute stress disorder F43.0 [facility] [address] [facility] [id number], [place] [address]- 6184 Oct, [facility] [address] [id number], [place] [address]- 8503 Oct, [facility] [address] [facility] [id number] [address]- 4211 Oct, [facility] [address], [place] [address]- 6837 Sep, [facility] [address] [facility] [id number], [place] [address]- 3214 August, [facility] [address], [place] [address]- 7253 Jul, 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 ; Neck pain M54.2 ; Abnormal mammogram R92.8 and Essential hypertension I10 [facility] [address], [place] [address]- 2814 Jul, [facility] [address] [facility] [id number], [place] [address]- 9414 Jul, [facility] [id number], [place] [address]- 8855 Jul, Abnormal mammogram R92.8 [facility] [address] [facility] [id number], [place] [address]- 5282 Jul, [facility] [id number] [address]- 0725 Jul, UTI (urinary tract infection) N39.0 [facility] [address], [place] [address]- 1127 Jul, Dysuria R30.0 [facility] [address] [place] [address] 20699- 8542 Jun, [facility] [id number] [place] [address] 82654- 5425 Jun, [facility] [id number] [place] [address] 05171- 9916 Jun, Hypokalemia E87.6 and Hematuria R31.9 [facility] [id number] [place] [address] 13116- 6660 Jun, Hypokalemia E87.6 [facility] [id number] [place] [address] 10526- 2872 Jun, [facility] [id number] [place] [address] 43267- 3278 Jun, Hypokalemia E87.6 [facility] [id number] [place] [address] 19030- 6343 Jun, Hypokalemia E87.6 [facility] [address] [place] [address] 05676- 4050 15 Jun, 2015 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 ; Hypokalemia E87.6 ; Neck pain M54.2 ; Essential hypertension I10 ; Mixed hyperlipidemia E78.2 and Screening breast examination Z12.39 [facility] [address] [place] [address] 41048- 5646 Jun, Dysuria R30.0 ; UTI (urinary tract infection) N39.0 and Hematuria R31.9 [facility] [address] [place] [address] 64192- 7479 May, [facility] [id number] [place] [address] 06240- 3491 18 May, 2015 High risk sexual behavior Z72.51 ; Hypokalemia E87.6 ; 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 ; Neck pain M54.2 ; Essential hypertension I10 ; Mixed hyperlipidemia E78.2 ; STD exposure Z20.2 and Concern about STD in female without diagnosis Z71.1 [facility] [id number] [place] [address] 62689- 3597 16 May, 2015 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 ; Neck pain M54.2 ; Hypokalemia E87.6 ; Essential hypertension I10 and Mixed hyperlipidemia E78.2 [place] [address] 46229- 5146 11 May, 2015 [facility] [id number] [place] [address] 19648 -0726 08 May, 2015 High risk sexual behavior Z72.51 ; STD exposure Z20.2 and Concern about STD in female without diagnosis Z71.1 [place] [id number] [place] [address] 32230- 5720 May, [place] [address] 67454- 7141 Apr, 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 ; Mixed hyperlipidemia E78.2 ; Essential hypertension I10 and Hypokalemia E87.6 [place] [id number] [place] [address] 48273- 7167 Mar, [place] [address] 23384- 1307 Mar, Hypokalemia E87.6 [place] [address] 79561- 2533 Mar, 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 ; Mixed hyperlipidemia E78.2 ; Neck pain M54.2 ; Essential hypertension I10 ; Abnormal fasting glucose R73.09 ; Hypokalemia E87.6 and Constipation K59.00 [place] [id number] [place] [address] 13598- 1916 Feb, 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 ; Mixed hyperlipidemia E78.2 ; Neck pain M54.2 ; Essential hypertension I10 ; Abnormal fasting glucose R73.09 ; Hypokalemia E87.6 and Constipation K59.00 [place] [id number] [place] [address] 92812- 1806 Feb, Elevated fasting blood sugar R73.01 [place] [id number] [place] [address] 34172- 4906 Feb, Elevated fasting blood sugar R73.01 [place] [id number] [place] [address] 10037- 2773 Feb, Hair loss L65.9 [place] [id number] [place] [address] 20341- 3434 Feb, Sinusitis J32.9 ; Essential hypertension I10 and Hair loss L65.9 [place] [id number] [place] [address] 20771- 9643 Jan, [place] [id number] [place] [address] 59084- 1257 Jan, Essential hypertension I10 ; 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 ; Neck pain M54.2 ; Mixed hyperlipidemia E78.2 and Anxiety F41.9 [place] [id number] [place] [address] 58940- 5193 Jan, [place] [id number] [place] [address] 21538- 8532 Jan, Mixed hyperlipidemia E78.2 ; Essential (primary) hypertension I10 ; Strain of muscle, fascia and tendon at neck level, subsequent encounter S16.1XXD and Tension-type headache, unspecified, not intractable G44.209 [place] [id number] [place] [address] 66337- 4968 Dec, Lumbar back pain 724.2 and Neuroforaminal stenosis of spine 724.00 [facility] [address], [place] [address]- 7152 Nov, [facility] [id number] [place] [address] 79020- 1561 Nov, Lumbar back pain 724.2 and Neuroforaminal stenosis of spine 724.00 [facility] [id number] [place] [address] 46064- 7730 Nov, Edema 782.3 ; Lumbar back pain 724.2 ; Essential hypertension, benign 401.1 ; Hyperlipemia 272.4 ; Neuroforaminal stenosis of spine 724.00 and Post-concussion headache 339.20 [facility] [address] [place] [address] 97699- 6466 Nov, [facility] [id number] [place] [address] 32385- 7393 Nov, [facility] [id number] [place] [address] 64053- 2189 Oct, Essential hypertension, benign 401.1 [facility] [id number] [place] [address] 77490- 9192 Oct, Edema 782.3 ; Lumbar back pain 724.2 ; Essential hypertension, benign 401.1 ; Hyperlipemia 272.4 ; Neuroforaminal stenosis of spine 724.00 and Post-concussion headache 339.20 [facility] [address] [place] [address] 16314- 1603 Oct, [facility] [address] [place] [address] 21485- 3046 Oct, Edema 782.3 [facility] [address] [place] [address] 73879- 2299 Oct, Lumbar back pain 724.2 [facility] [address] [place] [address] 94340- 0055 Oct, Cervicalgia 723.1 ; Lumbar back pain 724.2 and High risk medication use V58.69 [facility] [address], [place] [address]- 2167 Sep, [facility] [id number] [place] [address] 50626- 0034 Sep, Lumbar strain 847.2 [facility] [id number] [place] [address] 77257- 5352 August, Edema 782.3 and Eustachian tube dysfunction 381.81 [facility] [id number] [place] [address] 61903- 5026 August, [facility] [id number] [place] [address] 75505- 4406 August, Eustachian tube dysfunction 381.81 [facility] [id number] [place] [address] 44761- 9735 Jul, Otalgia 388.70 and Otitis media 382.9 [facility] [id number] [place] [address] 71109- 2254 Jul, [facility] [id number] [place] [address] 30477- 5781 Jul, [facility] [address], [place] [address]- 0484 Jul, [facility] [id number] [place] [address] 12658- 8163 Jul, [facility] [address], [place] [address]- 0585 Jul, [facility] [id number] [place] [address] 83691- 0571 Jun, [facility] [address], [place] [address]- 6984 Jun, [facility] [id number] [place] [address] 32171- 3495 Jun, [facility] [place] [facility] [address] [id number] [place] [address]- 2046 May, 2014 [facility] [place] [facility] [address] [id number] [place] [address]- 3556 May, 2014 [facility] [place] [facility] [address] [facility] [id number] [place] [address]- 9086 May, 2014 [facility] [place] [facility] [address] [id number] [place] [address]- 5656 May, 2014 [facility] [place] [facility] [address] [id number] [place] [address]- 5660 May, 2014 [facility] [place] [facility] [address] [facility] [id number] [place] [address]- 3002 May, 2014 [facility] [place] [facility] [address] [facility] [id number] [place] [address]- 0872 May, 2014 [facility] [place] [facility] [address] [facility] [id number] [place] [address] May, [facility] [place] [facility] [address] [facility] [id number] [place] [address] May, [facility] [place] [facility] [address] [facility] [id number] [place] [address] May, [facility] [place] [facility] [address] [facility] [id number] [place] [address] Apr, [facility] [place] [facility] [address] [id number] [place] [address] Apr, [facility] [place] [facility] [address] [id number] [place] [address] Apr, [facility] [place] [facility] [address] [facility] [id number] [place] [address] Apr, [facility] [place] [facility] [address] [facility] [id number] [place] [address] Apr, [facility] [place] [facility] [address] [id number] [place] [address] Apr, [facility] [place] [facility] [address] [id number] [place] [address] Apr, [facility] [place] [facility] [address] [id number] [place] [address] Apr, [facility] [place] [facility] [address] [id number] [place] [address] Apr, [facility] [place] [facility] [address] [id number] [place] [address] Apr, [facility] [place] [facility] [address] [id number] [place] [address] Apr, [facility] [place] [facility] [address] [id number] [place] [address] Apr, [facility] [place] [facility] [address] [id number] [place] [address] Apr, [facility] [place] [facility] [address] [id number] [place] [address] Apr, [facility] [place] [facility] [address] [id number] [place] [address] Apr, [facility] [place] [facility] [address] [id number] [place] [address] Mar, [facility] [place] [facility] [address] [id number], [place] [address] Mar, [facility] [place] [facility] [address] [id number] [place] [address] Mar, [facility] [place] [facility] [address] [id number] [place] [address] Mar, [facility] [place] [facility] [address] [id number] [place] [address] Feb, [facility] [place] [facility] [address] [id number], [place] [address] Feb, [facility] [place] [facility] [address] [id number] [place] [address] Feb, [facility] [place] [facility] [address] [facility] [id number] [place] [place] [address] Feb, [facility] [place] [facility] [address] [facility] [id number] [place] [address] 1420 Jan, [facility] [place] [facility] [address] [id number] [place] [address] 5622 Jan, [facility] [place] [facility] [address] [facility] [id number] [place] [address] 6799 Jan, [facility] [place] [facility] [address] [facility] [id number] [place] [address]- 4494 Jan, [facility] [place] [facility] [address] [facility] [id number], [place] [address]- 0871 Jan, [facility] [place] [facility] [address] [facility] [id number] [place] [address]- 7265 Jan, [facility] [place] [facility] [address] [facility] [id number] [place] [address]- 0049 Jan, [facility] [place] [facility] [address] [facility] [id number], [place] [address]- 7854 Jan, [facility] [place] [facility] [address] [facility] [id number], [place] [address] Dec, 2013 [facility] [place] [facility] [address] [facility] [id number], [place] [address]- 4052 29 Dec, 2013 [facility] [place] [facility] [address] [id number], [place] [address] 78[address] 04 Dec, 2013 [facility] [place] [facility] [address] [facility] [id number], [place] [address]- 3880 04 Dec, 2013 [facility] [place] [facility] [address] [facility] [id number], [place] [address]- 6130 Oct, [facility] [place] [facility] [address] [id number] [place] [address]- 1459 14 Oct, 2013 [facility] [place] [facility] [address] [id number] [place] [address]- 9267 Oct, 2013 [facility] [place] [facility] [address] [id number] [facility] [place] [address] Oct, 2013 [facility] [place] [facility] [address] [id number] [place] [address]- 7401 Oct, 2013 [facility] [place] [facility] [address] [id number] [place] [address]- 3440 Oct, 2013 [facility] [place] [facility] [address] [id number] [place] [address]- 3917 Oct, 2013 [facility] [place] [facility] [address] [id number] [place] [address]- 8194 Oct, 2013 [facility] [place] [facility] [address] [id number] [place] [address]- 2131 Sep, [facility] [place] [facility] [address] [id number] [place] [address]- 4260 Sep, [facility] [place] [facility] [address] [id number] [place] [address]- 6164 Sep, [facility] [place] [facility] [address] [id number] [place] [address]- 6273 Sep, [facility] [place] [facility] [address] [id number] [place] [address]- 3927 Sep, [facility] [place] [facility] [address] [id number] [place] [address]- 1096 Sep, [facility] [place] [facility] [address] [id number] [place] [address]- 7716 Sep, [facility] [place] [facility] [address] [id number] [place] [address]- 0177 Sep, [facility] [place] [facility] [address] [id number] [place] [address]- 3823 Sep, [facility] [place] [facility] [address] [id number] [place] [address]- 6204 Sep, [facility] [place] [facility] [address] [id number] [place] [address]- 4180 August, [facility] [place] [facility] [address] [id number] [place] [address]- 8821 August, [facility] [place] [facility] [address] [id number] [place] [address]- 3319 August, [facility] [place] [facility] [address] [id number] [place] [address]- 7184 August, [facility] [place] [facility] [address] [id number] [place] [address]- 2566 August, [facility] [place] [facility] [address] [id number] [place] [address]- 9874 August, [facility] [place] [facility] [address] [id number] [place] [address]- 3088 August, [facility] [place] [facility] [address] [id number] [place] [address]- 5085 August, [facility] [place] [facility] [address] [id number] [place] [address]- 2127 August, [facility] [place] [facility] [address] [id number] [place] [address]- 0475 August, [facility] [place] [facility] [address] [id number] [place] [address]- 3903 August, [facility] [place] [facility] [address] [id number] [place] [address]- 5594 August, [facility] [place] [facility] [address] [id number] [place] [address]- 0701 Jul, [facility] [place] [facility] [address] [id number] [place] [address]- 5420 Jul, [facility] [place] [facility] [address] [id number] [place] [address]- 5738 10 Jul, 2013 [facility] [place] [facility] [address] [id number] [place] [address]- 5972 Jul, [facility] [place] [facility] [address] [id number] [place] [address]- 0755 Jul, [facility] [place] [facility] [address] [id number] [place] [address]- 5276 Jul, [facility] [place] [facility] [address] [id number] [place] [address]- 4848 Jun, [facility] [place] [facility] [address] [id number] [place] [address]- 1564 Jun, [facility] [place] [facility] [address] [id number] [place] [address]- 6237 May, [facility] [place] [facility] [address] [id number] [place] [address]- 6895 May, [facility] [place] [facility] [address] [id number] [place] [address]- 9808 Apr, [facility] [place] [facility] [address] [id number] [place] [address]- 3667 Apr, [facility] [place] [facility] [address] [id number] [place] [address]- 1157 Apr, [facility] [place] [facility] [address] [id number] [place] [address]- 2637 Apr, [facility] [place] [facility] [address] [id number] [place] [address]- 5936 Apr, [facility] [place] [facility] [address] [id number] [place] [address]- 5721 Apr, [facility] [place] [facility] [address] [id number] [place] [address]- 5568 Apr, [facility] [place] [facility] [address] [id number] [place] [address]- 2529 Apr, [facility] [place] [facility] [address] [id number] [place] [address]- 3576 Apr, [facility] [place] [facility] [address] [id number] [place] [address]- 7476 Apr, [facility] [place] [facility] [address] [id number] [place] [address]- 6142 Apr, [facility] [place] [facility] [address] [id number] [place] [address]- 3954 Apr, [facility] [place] [facility] [address] [id number] [place] [address]- 6321 Apr, [facility] [place] [facility] [address] [id number] [place] [address]- 3879 Mar, [facility] [place] [facility] [address] [id number] [place] [address]- 0865 Mar, [facility] [place] [facility] [address] [id number] [place] [address]- 2251 Mar, [facility] [place] [facility] [address] [id number] [place] [address]- 0063 Mar, [facility] [place] [facility] [address] [id number] [place] [address]- 7826 Feb, [facility] [place] [facility] [address] [id number] [place] [address]- 9832 Feb, [facility] [place] [facility] [address] [id number], [place] [address]- 3775 Feb, [facility] [place] [facility] [address] [id number] [place] [address]- 7534 Feb, [facility] [place] [facility] [address] [id number] [place] [address]- 6914 Jan, [facility] [place] [facility] [address] [id number], [place] [address]- 5173 Jan, [facility] [place] [facility] [address] [id number], [place] [address]- 7356 Jan, [facility] [place] [facility] [address] [id number] [place] [address]- 8878 Jan, [facility] [place] [facility] [address] [id number] [place] [address]- 2070 Jan, [facility] [place] [facility] [address] [id number] [place] [address]- 1095 Jan, [facility] [place] [facility] [address] [id number] [place] [address]- 6018 Jan, [facility] [place] [facility] [address] [id number] [place] [address]- 4001 Jan, [facility] [place] [facility] [address] [id number] [place] [address]- 8364 Jan, [facility] [place] [facility] [address] [id number] [place] [address]- 4770 26 Dec, 2012 [facility] [place] [facility] [address] [id number] [place] [address]- 5008 16 Dec, 2012 [facility] [place] [facility] [address] [id number] [place] [address]- 4029 16 Dec, 2012 [facility] [place] [facility] [address] [id number] [place] [address]- 1675 13 Dec, 2012 [facility] [place] [facility] [address] [id number] [place] [address]- 4568 Nov, [facility] [place] [facility] [address] [id number] [place] [address]- 3248 Nov, [facility] [place] [facility] [address] [id number] [place] [address]- 0531 14 Nov, 2012 [facility] [place] [facility] [address] [id number] [place] [address]- 5102 05 Nov, 2012 [facility] [place] [facility] [address] [id number] [place] [address]- 4454 18 Oct, 2012 [facility] [place] [facility] [address] [id number] [place] [address]- 0381 Sep, [facility] [address] [id number] [place] [address]- 9347 August, [facility] [address] [id number] [place] [address]- 7736 August, [facility] [address] [id number] [place] [address]- 5976 August, [facility] [address] [id number] [place] [address]- 6003 August, [facility] [address] [id number] [place] [address]- 4799 August, [facility] [address] [id number] [place] [address]- 6648 August, [facility] [address] [id number] [place] [address]- 5480 August, [facility] [address] [id number] [place] [address]- 8758 August, [facility] [address] [id number] [place] [address]- 0422 August, [facility] [address] [id number] [place] [address]- 8206 August, [facility] [address] [id number] [place] [address]- 2506 August, [facility] [address] [id number] [place] [address]- 9365 August, [facility] [address] [id number] [place] [address]- 1764 Jul, [facility] [address] [id number] [place] [address]- 0556 Jul, [facility] [address] [id number] [place] [address]- 7747 Jul, [facility] [address] [id number] [place] [address]- 8717 15 Jul, 2012 [facility] [place] [facility] [address] [id number] [place] [address]- 3530 Jul, [facility] [address] [id number] [place] [address]- 6159 Jul, [facility] [place] [facility] [address] [id number] [place] [address]- 6488 Jul, [facility] [address] [id number] [place] [address]- 9535 Jul, [facility] [place] [facility] [address] [id number] [place] [address]- 0345 Jul, [facility] [place] [facility] [address] [id number] [place] [address]- 9931 Jul, [facility] [place] [facility] [address] [id number] [place] [address]- 7968 Jul, [facility] [place] [facility] [address] [id number] [place] [address]- 2282 Jun, [facility] [place] [facility] [address] [id number] [place] [address]- 6157 Jun, [facility] [place] [facility] [address] [id number] [place] [address]- 5794 Jun, [facility] [place] [facility] [address] [id number], [place] [address]- 3230 Jun, [facility] [place] [facility] [address] [id number] [place] [address]- 6861 May, [facility] [place] [facility] [address] [id number] [place] [address]- 6072 14 May, 2012 [facility] [place] [facility] [address] [id number] [place] [address]- 8365 05 May, 2012 [facility] [place] [facility] [address] [id number] [place] [address]- 1602 04 May, 2012 [facility] [address] [id number] [place] [address]- 0286 May, [facility] [address] [id number] [place] [address]- 2546 May, [facility] [address] [id number] [place] [address]- 6366 Apr, [facility] [address] [id number] [place] [address]- 7755 Apr, [facility] [address] [id number] [place] [address]- 5621 Apr, [facility] [address] [id number] [place] [address]- 6249 Apr, [facility] [address] [id number] [place] [address]- 6348 15 Mar, 2012 [facility] [address] [id number] [place] [address]- 2726 14 Mar, 2012 [facility] [address] [id number] [place] [address]- 2926 14 Mar, 2012 [facility] [address] [id number] [place] [address]- 2698 14 Mar, 2012 [facility] [address] [id number] [place] [address] 2541 14 Mar, 2012 [facility] [address] [id number] [place] [address] 2541 06 Mar, 2012 [facility] [address] [id number] [place] [address]- 3461 06 Mar, 2012 [facility] [address] [id number] [place] [address]- 0036 Feb, [facility] [address] [id number] [place] [address]- 2574 Feb, [facility] [place] [facility] [address] [id number] [place] [address]- 2514 Feb, [facility] [place] [facility] [address] [id number] [place] [address]- 3218 Feb, [facility] [place] [facility] [address] [id number] [place] [address]- 1512 Jan, [facility] [place] [facility] [address] [id number] [place] [address]- 9299 Jan, [facility] [place] [facility] [address] [id number] [place] [address]- 5543 Jan, [facility] [place] [facility] [address] [id number] [place] [address]- 9052 Jan, [facility] [place] [facility] [address] [id number] [place] [address]- 3771 Jan, [facility] [place] [facility] [address] [id number] [place] [address]- 5351 Jan, [facility] [place] [facility] [address] [id number] [place] [address]- 4342 Dec, [facility] [place] [facility] [address] [id number], [place] [address]- 4464 Dec, [facility] [place] [facility] [address] [id number], [place] [address]- 3744 Nov, [facility] [place] [facility] [address] [id number], [place] [address]- 4539 Sep, [facility] [place] [facility] [address] [id number] [place] [address]- 0459 August, [facility] [place] [facility] [address] [id number], [place] [address]- 1112 August, [facility] [place] [facility] [address] [id number], [place] [address]- 4987 August, [facility] [place] [facility] [address] [id number], [place] [address]- 0751 August, [facility] [address] [id number] [place] [address]- 7687 August, [facility] [place] [facility] [address] [id number] [place] [address]- 5802 Jun, [facility] [place] [facility] [address] [facility] [id number] [place] [address]- 3228 Jun, [facility] [place] [facility] [address] [id number] [place] [address]- 4150 Apr, [facility] [place] [facility] [address] [id number] [place] [address], [place] [address]- 7173 Apr, [facility] [place] [facility] [address] [facility] [id number] [place] [address]- 4829 Mar, [facility] [address] [id number], [place] [address]- 6980 Feb, [facility] [place] [facility] [address] [facility] [id number] [place] [address]- 9780 Feb, [facility] [place] [facility] [address] [id number] [address]- 2944 Feb, [facility] [place] [facility] [address] [id number], [place] [address]- 0973 17 Jan, 2011 [facility] [place] [facility] [address] [facility] [id number], [place] [address]- 2732 15 Jan, 2011 [facility] [place] [facility] [address] [facility] [id number], [place] [address]- 9098 15 Jan, 2011 [facility] [place] [facility] [address] [facility] [id number], [place] [address]- 4784 14 Jan, 2011 [facility] [place] [facility] [address] [facility] [id number], [place] [address]- 2463 15 May, 2010 [facility] [place] [facility] [address] [facility] [id number], [place] [address]- 8481 Mar, [facility] [place] [facility] [address] [id number], [place] [address]- 2546 Oct, [facility] [address] [id number], [place] [address]- 2546 Sep, [facility] [id number], [place] [address]- 2546 Mar, [facility] [id number], [place] [address]- 2546 Jan, [facility] [address] [id number], [place] [address]- 2546 Jan, [facility] [id number], [place] [address]- 2546 May, IMMUNIZATIONS No Known Immunizations SOCIAL HISTORY Never Assessed REASON FOR VISIT triage - CBowmanRN PLAN OF CARE VITAL SIGNS MEDICATIONS Unknown Medications RESULTS No Results PROCEDURES No Known procedures INSTRUCTIONS MEDICATIONS ADMINISTERED No Known Medications MEDICAL (GENERAL) HISTORY Type Description Date Medical History hypertension Medical History Colposcopy with loop electrode excision of the cervix was performed 06/2012, mild squamous atypia (no definite dyplasia). Performed at [facility] Dr. Joy. Medical History Acute suppurative otitis media without spontaneous rupture of eardrum Medical History vitamin D deficiency Medical History allergic rhinitis Medical History anxiety Medical History hyperlipidemia Medical History esophageal reflux Surgical History tubal ligation 1988 Surgical History orthopedic surgery- carpal tunnel june 2009, ligament/ tendons cut in index finger sometime in the . Surgical History colonoscopy 04-28-15 Hospitalization History hospitalizations for surgeries only
--- OUTSIDE RECORDS SUMMARY | 2018-06-10 04:38 | XMS REPORT ---
Author Author MELVA MARINO [facility] Address [address] [place] [address] Care Team Providers Care Primary Therapist Name Role Phone MARINO FRYE Unavailable PROBLEMS Type Condition ICD9-CM Code ZPV35-IV Code Onset Dates Condition Status SNOMED Code Problem Abnormal glucose R73.09 Active 943300223 Problem Anxiety F41.9 Active 81711192 Problem 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 Active 511138044588 Problem Abnormal ultrasound of uterus R93.5 Active 901933953 Problem Abnormal MRI, shoulder R93.8 Active 422923582 Problem 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 Active 693680095 Problem Essential hypertension I10 Active 07823389 Problem Neck pain M54.2 Active 13649399 Problem Hypokalemia E87.6 Active 59224465 Problem Mixed hyperlipidemia E78.2 Active 07787793 ALLERGIES Substance Reaction Event Type Date Status Macrobid rash Drug Allergy Dec, Active Cipro hives Drug Allergy Dec, Active Baclofen Unknown Drug Allergy Dec, Active Amitriptyline HCl dizziness Drug Allergy Dec, Active Peanut Unknown Non Drug Allergy Dec, Active ENCOUNTERS Encounter Location Date Diagnosis [facility] [facility] [id number], [place] [address] August, [facility] [address], [place] [address] Jul, 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 [facility] [address], [place] [address] Jul, Lateral epicondylitis, right elbow M77.11 [facility] [id number], [place] [address] Jul, [place] [facility] [id number] [place] [address] 69971- 4296 Jun, High ankle sprain of right lower extremity, initial encounter S93.431A [facility] [address] 41409- 4657 Jun, Essential hypertension I10 [facility] [address] 39962- 3468 Jun, [facility] [address] 30734- 9481 Jun, [facility] [facility] [address] 24615- 9911 Jun, 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 [facility] [address] 08518- 9364 Jun, Pain of right upper extremity M79.601 and Essential hypertension I10 [facility] [address] 41588- 1690 Jun, [facility] [facility] [address] 25944- 1726 Jun, Dysuria R30.0 ; Acute cystitis with hematuria N30.01 and Screen for STD (sexually transmitted disease) Z11.3 [facility] [facility] [id number] [place] [address] 77586- 0451 May, 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 [facility] [address] 54628- 2356 May, Essential hypertension I10 [facility] [address] 88769- 9591 May, 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 [facility] [id number] [place] [address] 60586- 0546 Apr, Allergic reaction, initial encounter T78.40XA [facility] [facility] [address] [place] [address] Apr, Low back pain, unspecified back pain laterality, unspecified chronicity, with sciatica presence unspecified M54.5 ; Acute cystitis with hematuria N30.01 ; 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 ; Bilateral acute serous otitis media, recurrence not specified H65.03 ; Mixed hyperlipidemia E78.2 ; Essential hypertension I10 ; Immunization counseling Z71.89 and Encounter for immunization Z23 [facility] [facility] [address] 51882- 8874 Apr, Neck pain M54.2 [facility] [address] 63617- 4012 Mar, 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 [facility] [address] 10914- 7497 Mar, Pharyngitis due to other organism J02.8 [facility] [facility] [address] 69349- 1874 Feb, 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 [facility] [address] 82048- 6409 Feb, UTI (urinary tract infection) N39.0 [facility] [facility] [id number] [place] [address] 51962- 9371 07 Feb, 2017 Recent urinary tract infection Z87.440 ; 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 ; Neck pain M54.2 ; 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 and Recurrent UTI N39.0 [facility] [id number] [place] [address] 35796- 4993 Feb, [facility] [facility] [address] 09675- 5965 Jan, 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 [facility] [id number] [place] [address] 49667- 7609 Dec, 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 [facility] [address] [place] [address] 83001- 2544 18 Dec, 2016 Acute seasonal allergic rhinitis due to pollen J30.1 [facility] [id number] [place] [address] 75395- 3634 08 Dec, 2016 [facility] [id number] [place] [address] 85381- 8621 08 Dec, 2016 Acute seasonal allergic rhinitis, unspecified trigger J30.2 ; Allergic conjunctivitis of both eyes H10.13 and Dysfunction of both eustachian tubes H69.83 [facility] [id number] [place] [address] 95265- 5839 Dec, [facility] [id number] [place] [address] 14976- 2276 Dec, Nevus D22.9 [facility] [address] 04489- 6598 Nov, 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 and 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 [facility] [address] [place] [address] 35073- 6507 Nov, 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 ; Essential hypertension I10 ; Mixed hyperlipidemia E78.2 ; Hypokalemia E87.6 ; Neck pain M54.2 and Nevus D22.9 [facility] [address] [place] [address] 34142- 9710 Oct, 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 [facility] [place] [id number] [place] [address] 90811- 3191 Sep, 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 [facility] [address] [place] [address] 66382- 1817 Sep, [facility] [address] [place] [address] 04749- 4305 August, [facility] [address] [place] [address] 33670- 5916 August, Neck pain M54.2 and 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 [facility] [id number] [place] [address] 38401- 4523 August, Routine gynecological examination Z01.419 and Screening breast examination Z12.39 [facility] [id number] [place] [address] 07820- 7222 Jul, [facility] [id number] [place] [address] 23307- 1495 Jul, [facility] [id number] [place] [address] 67908- 1105 Jul, 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 [facility] [id number] [place] [address] 43779- 8480 Jul, [facility] [address] [place] [address] 36194- 6450 Jul, 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 [facility] [address] [place] [address] 07752- 5048 Jul, [facility] [id number] [place] [address] 92393- 9398 Jul, [facility] [id number] [place] [address] 88270- 3542 Jun, 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 [facility] [address] [place] [address] 38273- 8776 Jun, Uterine leiomyoma, unspecified location D25.9 and Allergic reaction caused by a drug, initial encounter T78.40XA [facility] [id number] [place] [address] 32677- 2201 Jun, [facility] [address] [place] [address] 31820- 5985 May, UTI symptoms R39.9 and Pain of right sacroiliac joint M53.3 [facility] [address] [place] [address] 32305- 0865 May, 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 [facility] [address] [place] [address] 79994- 4369 May, [facility] [facility] [address] [place] [address] 44678- 3533 May, Acute mucoid otitis media of left ear H65.112 and Acute non- recurrent maxillary sinusitis J01.00 [facility] [address] [place] [address] 56051- 5522 May, Acute bacterial conjunctivitis of both eyes H10.33 ; Left arm pain M79.602 and Hypokalemia E87.6 [facility] [address] 00119- 2482 Apr, [facility] [facility] [address] [place] [address] 61461- 8314 Apr, 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 ; Neck pain M54.2 ; 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 ; Mixed hyperlipidemia E78.2 ; Essential hypertension I10 and Hypokalemia E87.6 [facility] [address] [place] [address] 63376- 6174 Mar, Oral candidiasis B37.0 ; 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 ; Neck pain M54.2 and 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 [facility] [address] 68066- 3098 Feb, [facility] [address] [place] [address] 19466- 0912 Feb, [facility] [facility] [address] [place] [address] 62605- 3465 Feb, UTI (urinary tract infection) N39.0 [facility] [address], [place] [address]- 6164 Feb, Dysuria R30.0 [facility] [address] [place] [address] 93236- 2166 Feb, Dysuria R30.0 [facility] [address] [place] [address] 90737- 2731 Feb, 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 ; Neck pain M54.2 ; Essential hypertension I10 ; 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 ; Dysuria R30.0 ; Abnormal MRI, shoulder R93.8 and Acute cystitis without hematuria N30.00 [facility] [address] [place] [address] 47828- 5279 Jan, [facility] [address] [place] [address] 05703- 0821 Jan, [facility] [address] [place] [address] 31816- 8103 Jan, [facility] [address] [place] [address] 91499- 0956 Jan, Abnormal MRI R93.8 [facility] [address] [place] [address] 23519- 5705 29 Dec, 2015 [facility] [address] [place] [address] 86804 -6196 15 Dec, 2015 Acute pain of left shoulder M25.512 [facility] [address], [place] [address]- 2546 Dec, [facility] [address] [place] [address] 04283- 4756 08 Dec, 2015 [facility] [address], [place] [address]- 0661 07 Dec, 2015 Acute pain of left shoulder M25.512 [facility] [id number], [place] [address]- 3391 Nov, [facility] [address] [facility] [id number] [place] [address] 04618- 2376 Nov, 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 ; Neck pain M54.2 ; Abnormal mammogram R92.8 ; Essential hypertension I10 and 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 [facility] [address] [place] [address] 90310- 0561 Nov, [facility] [address] [facility] [id number] [address]- 2237 Oct, Acute stress disorder F43.0 [facility] [address] [place] [address] 30772- 4662 Oct, [facility] [address] [place] [address] 43631- 7220 Oct, [facility] [address] [place] [address] 65958- 0191 Oct, [facility] [id number], [place] [address]- 4339 Sep, [facility] [address] [place] [address]- 0180 August, [facility] [address], [place] [address]- 5469 Jul, 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 ; Neck pain M54.2 ; Abnormal mammogram R92.8 and Essential hypertension I10 [facility] [address] [facility] [id number] [address]- 2224 Jul, [facility] [id number] [place] [address] 52737- 2146 Jul, [facility] [id number], [place] [address]- 2308 Jul, Abnormal mammogram R92.8 [facility] [address], [place] [address]- 6101 Jul, [facility] [address] [place] [address] 82612- 1989 Jul, UTI (urinary tract infection) N39.0 [facility] [address], [place] [address]- 2777 Jul, Dysuria R30.0 [facility] [id number] [place] [address] 03890- 2161 Jun, [facility] [address] [place] [address] 48036- 3092 Jun, [facility] [address] [place] [address] 73889- 0522 Jun, Hypokalemia E87.6 and Hematuria R31.9 [facility] [address] [place] [address] 15874- 3493 Jun, Hypokalemia E87.6 [facility] [address] [place] [address] 15664- 5451 Jun, [facility] [address] [place] [address] 87407- 1676 Jun, Hypokalemia E87.6 [facility] [address] [place] [address] 48469- 8652 Jun, Hypokalemia E87.6 [facility] [facility] [address], [place] [address]- 5168 15 Jun, 2015 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 ; Hypokalemia E87.6 ; Neck pain M54.2 ; Essential hypertension I10 ; Mixed hyperlipidemia E78.2 and Screening breast examination Z12.39 [facility] [facility] [address], [place] [address]- 8897 Jun, Dysuria R30.0 ; UTI (urinary tract infection) N39.0 and Hematuria R31.9 [facility] [address] [place] [address] 09013- 7178 May, [facility] [address] 03449- 7637 18 May, 2015 High risk sexual behavior Z72.51 ; Hypokalemia E87.6 ; 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 ; Neck pain M54.2 ; Essential hypertension I10 ; Mixed hyperlipidemia E78.2 ; STD exposure Z20.2 and Concern about STD in female without diagnosis Z71.1 [facility] [address] [place] [address] 78046- 6419 16 May, 2015 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 ; Neck pain M54.2 ; Hypokalemia E87.6 ; Essential hypertension I10 and Mixed hyperlipidemia E78.2 [facility] [address] [place] [address] 12579- 4866 May, [facility] [address] [place] [address] 07451 -1581 08 May, 2015 High risk sexual behavior Z72.51 ; STD exposure Z20.2 and Concern about STD in female without diagnosis Z71.1 [facility] [address] [place] [address] 26289- 7265 May, [facility] [address] [place] [address] 06925- 9761 Apr, 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 ; Mixed hyperlipidemia E78.2 ; Essential hypertension I10 and Hypokalemia E87.6 [facility] [address] [place] [address] 26493- 8354 Mar, [facility] [address] 56692- 1932 Mar, Hypokalemia E87.6 [facility] [address] [place] [address] 52396- 9414 Mar, 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 ; Mixed hyperlipidemia E78.2 ; Neck pain M54.2 ; Essential hypertension I10 ; Abnormal fasting glucose R73.09 ; Hypokalemia E87.6 and Constipation K59.00 [facility] [address] [place] [address] 45752- 9796 Feb, 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 ; Mixed hyperlipidemia E78.2 ; Neck pain M54.2 ; Essential hypertension I10 ; Abnormal fasting glucose R73.09 ; Hypokalemia E87.6 and Constipation K59.00 [facility] [address] [place] [address] 19061- 0424 Feb, Elevated fasting blood sugar R73.01 [facility] [address] [place] [address] 82939- 1694 Feb, Elevated fasting blood sugar R73.01 [facility] [facility] [address] 33386- 8434 Feb, Hair loss L65.9 [facility] [address] 25967- 1320 Feb, Sinusitis J32.9 ; Essential hypertension I10 and Hair loss L65.9 [facility] [address] [place] [address] 75189- 2449 Jan, [facility] [address] [place] [address] 30302- 2483 Jan, Essential hypertension I10 ; 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 ; Neck pain M54.2 ; Mixed hyperlipidemia E78.2 and Anxiety F41.9 [facility] [address] 00323- 8252 Jan, [facility] [address] [place] [address] 37250- 0400 Jan, Mixed hyperlipidemia E78.2 ; Essential (primary) hypertension I10 ; Strain of muscle, fascia and tendon at neck level, subsequent encounter S16.1XXD and Tension-type headache, unspecified, not intractable G44.209 [facility] [address] [place] [address] 14041- 8090 Dec, Lumbar back pain 724.2 and Neuroforaminal stenosis of spine 724.00 [facility] [address] [place] [address] 27422- 5542 Nov, [facility] [address] 09069- 4128 Nov, Lumbar back pain 724.2 and Neuroforaminal stenosis of spine 724.00 [facility] [address] 90131- 5330 Nov, Edema 782.3 ; Lumbar back pain 724.2 ; Essential hypertension, benign 401.1 ; Hyperlipemia 272.4 ; Neuroforaminal stenosis of spine 724.00 and Post-concussion headache 339.20 [facility] [address] [place] [address] 34794- 8674 Nov, [facility] [address] [place] [address] 87733- 2574 Nov, [facility] [address] [place] [address] 55374- 2829 Oct, Essential hypertension, benign 401.1 [facility] [address] [place] [address] 13343- 2193 Oct, Edema 782.3 ; Lumbar back pain 724.2 ; Essential hypertension, benign 401.1 ; Hyperlipemia 272.4 ; Neuroforaminal stenosis of spine 724.00 and Post-concussion headache 339.20 [facility] [address] [place] [address] 81603- 7999 Oct, [facility] [address] [place] [address] 43153- 0979 Oct, Edema 782.3 [facility] [address] [place] [address]- 0435 Oct, Lumbar back pain 724.2 [facility] [address] [place] [address] 68773- 1110 Oct, Cervicalgia 723.1 ; Lumbar back pain 724.2 and High risk medication use V58.69 [facility] [address] [place] [address] 60583- 7304 Sep, [facility] [address] [place] [address] 35888- 6136 Sep, Lumbar strain 847.2 [facility] [address] 35327- 7553 August, Edema 782.3 and Eustachian tube dysfunction 381.81 [facility] [address] [place] [address] 05881- 0960 August, [facility] [address] [place] [address] 76048- 0218 August, Eustachian tube dysfunction 381.81 [facility] [address] [place] [address] 87961- 8146 Jul, Otalgia 388.70 and Otitis media 382.9 [facility] [id number] [place] [address] 80454- 4191 Jul, [facility] [address] [place] [address] 52086- 6918 Jul, [facility] [id number] [place] [address] 73382- 9894 Jul, [facility] [id number] [place] [address] 65592- 7333 Jul, [facility] [address] [place] [address] 00310- 8485 Jul, [facility] [id number] [place] [address] 35964- 9894 Jun, [facility] [place] [facility] [address] [id number] [place] [address]- 4880 Jun, [facility] [place] [facility] [address] [id number] [place] [address]- 6424 Jun, [facility] [place] [facility] [address] [id number] [place] [address]- 0177 May, 2014 [facility] [place] [facility] [address] [id number] [place] [address]- 4350 May, 2014 [facility] [place] [facility] [address] [id number] [place] [address]- 5707 May, 2014 [facility] [place] [facility] [address] [id number] [place] [address]- 9969 May, 2014 [facility] [place] [facility] [address] [id number] [place] [address]- 0827 May, 2014 [facility] [place] [facility] [address] [id number] [place] [address]- 1330 May, 2014 [facility] [place] [facility] [address] [id number] [place] [address] May, [facility] [place] [facility] [address] [facility] [id number] [place] [address] May, [facility] [place] [facility] [address] [id number] [place] [address] May, 2014 [facility] [place] [facility] [address] [facility] [id number] [place] [address] May, [facility] [place] [facility] [address] [id number] [place] [address] Apr, [facility] [place] [facility] [address] [id number] [place] [address] Apr, [facility] [place] [facility] [address] [facility] [id number] [place] [address] Apr, [facility] [place] [facility] [address] [id number] [place] [address] Apr, [facility] [place] [facility] [address] [id number] [place] [address] Apr, [facility] [place] [facility] [address] [id number] [place] [address] Apr, [facility] [place] [facility] [address] [id number] [place] [address] Apr, [facility] [place] [facility] [address] [id number] [place] [address] Apr, [facility] [place] [facility] [address] [id number] [place] [address] Apr, [facility] [place] [facility] [address] [id number] [place] [address] Apr, [facility] [place] [facility] [address] [id number] [place] [address] Apr, [facility] [place] [facility] [address] [id number] [place] [address] Apr, [facility] [place] [facility] [address] [id number] [place] [address] Apr, [facility] [place] [facility] [address] [id number] [place] [address] Apr, [facility] [place] [facility] [address] [id number] [place] [address] Apr, [facility] [place] [facility] [address] [id number] [place] [address] Mar, [facility] [place] [facility] [address] [id number] [place] [address] Mar, [facility] [place] [facility] [address] [id number] [place] [address] Mar, [facility] [place] [facility] [address] [id number] [place] [address] Mar, [facility] [place] [facility] [address] [id number] [place] [address] Feb, [facility] [place] [facility] [address] [id number] [place] [address] Feb, [facility] [place] [facility] [address] [facility] [id number] [place] [address] Feb, [facility] [place] [facility] [address] [id number] [place] [address] Feb, [facility] [place] [facility] [address] [id number] [place] Jan, [facility] [place] [facility] [address] [id number] [place] [address] Jan, [facility] [place] [facility] [address] [facility] [id number] [place] [address] Jan, [facility] [place] [facility] [address] [id number], [place] [address] Jan, [facility] [place] [facility] [address] [id number], [place] [address] Jan, [facility] [place] [facility] [address] [id number], [place] [address] Jan, [facility] [place] [facility] [address] [id number], [place] [address] Jan, [facility] [place] [facility] [address] [id number], [place] [address] Jan, [facility] [place] [facility] [address] [id number] [address] Dec, [facility] [place] [facility] [address] [id number], [place] [address] Dec, [facility] [place] [facility] [address] [facility] [id number], [place] [address] Dec, [facility] [place] [facility] [address] [id number] [place] [address] 04 Dec, 2013 [facility] [place] [facility] [address] [id number] [place] [address]38 Oct, 2013 [facility] [place] [facility] [address] [id number] [place] [address]- 9679 Oct, 2013 [facility] [place] [facility] [address] [id number] [place] [address]- 5470 Oct, 2013 [facility] [place] [facility] [address] [id number] [place] [address]- 8533 Oct, 2013 [facility] [place] [facility] [address] [id number] [place] [address]- 1721 Oct, [facility] [place] [facility] [address] [id number] [place] [address]- 2906 Oct, [facility] [place] [facility] [address] [id number] [place] [address]- 5644 Oct, [facility] [place] [facility] [address] [id number] [place] [address]- 2742 Oct, [facility] [place] [facility] [address] [id number] [place] [address]- 1725 Sep, [facility] [place] [facility] [address] [id number] [place] [address]- 6421 Sep, [facility] [place] [facility] [address] [id number] [place] [address]- 3917 Sep, [facility] [place] [facility] [address] [id number] [place] [address]- 0180 Sep, [facility] [place] [facility] [address] [id number] [place] [address]- 3746 Sep, [facility] [place] [facility] [address] [id number] [place] [address]- 9972 Sep, [facility] [place] [facility] [address] [id number] [place] [address]- 6504 Sep, [facility] [place] [facility] [address] [id number] [place] [address]- 8952 Sep, [facility] [place] [facility] [address] [id number] [place] [address] 5411 Sep, [facility] [place] [facility] [address] [id number] [place] [address]- 6758 Sep, [facility] [place] [facility] [address] [id number] [place] [address]- 6084 August, [facility] [address] [id number] [place] [address] 4013 August, [facility] [place] [facility] [address] [id number] [place] [address]- 9378 August, [facility] [place] [facility] [address] [id number] [place] [address] 4321 August, [facility] [place] [facility] [address] [id number] [place] [address]- 6527 August, [facility] [place] [facility] [address] [id number] [place] [address]- 3529 August, [facility] [place] [facility] [address] [id number] [place] [address]- 5803 August, [facility] [place] [facility] [address] [id number] [place] [address] 9508 August, [facility] [place] [facility] [address] [id number] [place] [address]- 3722 August, [facility] [place] [facility] [address] [id number] [place] [address]- 5702 August, [facility] [place] [facility] [address] [id number] [place] [address]- 5323 August, [facility] [place] [facility] [address] [id number] [place] [address] August, [facility] [place] [facility] [address] [id number] [place] [address]- 8842 Jul, [facility] [place] [facility] [address] [id number] [place] [address]- 9087 Jul, [facility] [place] [facility] [address] [id number] [place] [address]- 9344 Jul, [facility] [place] [facility] [address] [id number] [place] [address]- 6417 Jul, [facility] [place] [facility] [address] [id number] [place] [address]- 1495 Jul, [facility] [place] [facility] [address] [id number] [place] [address]- 8221 Jul, [facility] [place] [facility] [address] [id number] [place] [address]- 7529 Jun, [facility] [place] [facility] [address] [id number] [place] [address]- 4466 Jun, [facility] [place] [facility] [address] [id number] [place] [address]- 6838 May, [facility] [place] [facility] [address] [id number] [place] [address]- 7526 May, [facility] [place] [facility] [address] [id number] [place] [address]- 0408 Apr, [facility] [place] [facility] [address] [id number] [place] [address]- 2449 Apr, [facility] [place] [facility] [address] [id number] [place] [address]- 4813 Apr, [facility] [place] [facility] [address] [id number] [place] [address]- 6339 Apr, [facility] [place] [facility] [address] [id number] [place] [address]- 7663 Apr, [facility] [place] [facility] [address] [id number] [place] [address]- 9920 Apr, [facility] [place] [facility] [address] [id number] [place] [address]- 6109 Apr, [facility] [place] [facility] [address] [id number] [place] [address]- 8260 Apr, [facility] [place] [facility] [address] [id number] [place] [address]- 2546 Apr, [facility] [place] [facility] [address] [id number] [place] [address]- 3455 Apr, [facility] [place] [facility] [address] [id number] [place] [address]- 9560 Apr, [facility] [place] [facility] [address] [id number] [place] [address]- 4654 Apr, [facility] [place] [facility] [address] [id number] [place] [address]- 6739 Apr, [facility] [place] [facility] [address] [id number] [place] [address]- 7677 Mar, [facility] [place] [facility] [address] [id number] [place] [address]- 5440 Mar, [facility] [place] [facility] [address] [id number] [place] [address]- 9022 Mar, [facility] [place] [facility] [address] [id number] [place] [address]- 1394 Mar, [facility] [place] [facility] [address] [id number] [place] [address]- 0408 Feb, [facility] [place] [facility] [address] [id number] [place] [address]- 8651 Feb, [facility] [place] [facility] [address] [id number] [place] [address]- 1487 Feb, [facility] [place] [facility] [address] [id number] [place] [address]- 9506 Feb, [facility] [place] [facility] [address] [id number] [place] [address]- 0712 14 Jan, 2013 [facility] [place] [facility] [address] [id number] [place] [address]- 7254 14 Jan, 2013 [facility] [place] [facility] [address] [id number] [place] [address]- 3767 11 Jan, 2013 [facility] [place] [facility] [address] [id number] [place] [address]- 4522 11 Jan, 2013 [facility] [place] [facility] [address] [id number] [place] [address]- 4502 10 Jan, 2013 [facility] [place] [facility] [address] [id number] [place] [address]- 8563 10 Jan, 2013 [facility] [place] [facility] [address] [id number] [place] [address]- 2289 09 Jan, 2013 [facility] [place] [facility] [address] [id number] [place] [address]- 2544 Jan, [facility] [place] [facility] [address] [id number] [place] [address]- 3872 Jan, [facility] [place] [facility] [address] [id number] [place] [address]- 1064 26 Dec, 2012 [facility] [place] [facility] [address] [id number] [place] [address]- 1593 16 Dec, 2012 [facility] [place] [facility] [address] [id number], [place] [address]- 0737 16 Dec, 2012 [facility] [place] [facility] [address] [id number], [place] [address]- 3365 13 Dec, 2012 [facility] [place] [facility] [address] [id number] [place] [address]- 8082 17 Nov, 2012 [facility] [place] [facility] [address] [id number], [place] [address]- 6476 17 Nov, 2012 [facility] [place] [facility] [address] [id number] [place] [address]- 4556 14 Nov, 2012 [facility] [place] [facility] [address] [id number] [place] [address]- 6082 Nov, [facility] [address] [id number] [place] [address]- 5433 Oct, [facility] [address] [id number] [place] [address]- 5263 Sep, [facility] [address] [id number] [place] [address]- 5396 August, [facility] [address] [id number] [place] [address]- 5625 August, [facility] [address] [id number] [place] [address]- 6444 August, [facility] [address] [id number] [place] [address]- 2827 August, [facility] [address] [id number] [place] [address]- 2475 August, [facility] [address] [id number] [place] [address]- 0263 August, [facility] [address] [id number] [place] [address]- 5665 August, [facility] [address] [id number] [place] [address]- 9729 August, [facility] [address] [id number] [place] [address]- 8356 August, [facility] [address] [id number] [place] [address]- 1966 August, [facility] [address] [id number] [place] [address]- 4843 August, [facility] [address] [id number] [place] [address]- 2666 August, [facility] [address] [id number] [place] [address]- 2276 Jul, [facility] [address] [id number] [place] [address]- 1889 Jul, [facility] [address] [id number] [place] [address]- 9550 Jul, [facility] [address] [id number] [place] [address]- 9049 15 Jul, 2012 [facility] [address] [id number] [place] [address]- 7501 Jul, [facility] [address] [id number] [place] [address]- 0420 Jul, [facility] [address] [id number] [place] [address]- 5378 Jul, [facility] [address] [id number] [place] [address]- 9497 Jul, [facility] [address] [id number] [place] [address]- 6008 Jul, [facility] [address] [id number] [place] [address]- 1281 Jul, [facility] [address] [id number] [place] [address]- 6598 Jul, [facility] [address] [id number] [place] [address]- 8929 Jun, [facility] [address] [id number] [place] [address]- 9769 Jun, [facility] [address] [id number] [place] [address]- 2687 Jun, [facility] [place] [facility] [address] [id number] [place] [address]- 6443 Jun, [facility] [address] [id number] [place] [address]- 9949 May, [facility] [address] [id number] [place] [address]- 4569 14 May, 2012 [facility] [address] [id number] [place] [address]- 4666 05 May, 2012 [facility] [address] [id number] [place] [address]- 0066 May, [facility] [address] [id number] [place] [address]- 0356 May, [facility] [address] [id number] [place] [address]- 8066 May, [facility] [address] [id number] [place] [address]- 0501 Apr, [facility] [address] [id number] [place] [address]- 0684 Apr, [facility] [address] [id number] [place] [address]- 5685 Apr, [facility] [address] [id number] [place] [address]- 7785 Apr, [facility] [address] [id number] [place] [address]- 4738 15 Mar, 2012 [facility] [address] [id number] [place] [address]- 0870 14 Mar, 2012 [facility] [address] [id number] [place] [address]- 7506 14 Mar, 2012 [facility] [address] [id number] [place] [address]- 254 14 Mar, 2012 [facility] [address] [id number] [place] [address]- 9816 14 Mar, 2012 [facility] [address] [id number] [place] [address]- 3243 06 Mar, 2012 [facility] [address] [id number] [place] 3636 06 Mar, 2012 [facility] [place] [facility] [address] [id number] [place] [address]- 5713 Feb, [facility] [place] [facility] [address] [id number] [place] [address]- 5234 Feb, [facility] [place] [facility] [address] [id number] [place] [address]- 1049 Feb, [facility] [place] [facility] [address] [id number] [place] [address]- 6437 Feb, [facility] [place] [facility] [address] [id number] [place] [address]- 9022 Jan, [facility] [place] [facility] [address] [id number] [place] [address]- 4633 Jan, [facility] [place] [facility] [address] [id number] [place] [address]- 4195 Jan, [facility] [place] [facility] [address] [id number] [place] [address]- 2250 Jan, [facility] [place] [facility] [address] [id number] [place] [address]- 9957 Jan, [facility] [place] [facility] [address] [id number] [place] [address]- 9513 Jan, [facility] [place] [facility] [address] [id number] [place] [address]- 6777 Dec, [facility] [place] [facility] [address] [id number] [place] [address]- 7866 Dec, [facility] [place] [facility] [address] [id number] [place] [address]- 8750 Nov, [facility] [place] [facility] [address] [id number] [place] [address]- 3801 Sep, [facility] [place] [facility] [address] [id number] [place] [address]- 5780 August, [facility] [place] [facility] [address] [id number] [place] [address]- 9910 August, [facility] [place] [facility] [address] [id number] [place] [address]- 3329 August, [facility] [place] [facility] [address] [id number] [place] [address]- 2824 August, [facility] [place] [facility] [address] [id number] [place] [address]- 5693 August, [facility] [place] [facility] [address] [id number] [place] [address]- 1514 Jun, [facility] [place] [facility] [address] [id number] [place] [address]- 4662 Jun, [facility] [place] [facility] [address] [id number] [place] [address]- 3616 Apr, [facility] [place] [facility] [address] [id number] [place] [address]- 5903 Apr, [facility] [place] [facility] [address] [id number], [place] [address]- 7834 Mar, [facility] [place] [facility] [address] [id number] [place] [address]- 7790 Feb, [facility] [place] [facility] [address] [id number], [place] [address]- 5090 14 Feb, 2011 [facility] [place] [facility] [address] [id number], [place] [address]- 0309 14 Feb, 2011 [facility] [place] [facility] [address] [id number], [place] [address]- 8104 17 Jan, 2011 [facility] [place] [facility] [address] [id number] [place] [address]- 6052 15 Jan, 2011 [facility] [place] [facility] [address] [id number], [place] [address]- 4713 15 Jan, 2011 [facility] [place] [facility] [address] [id number], [place] [address]- 7849 14 Jan, 2011 [facility] [place] [facility] [address] [id number], [place] [address]- 3546 May, [facility] [id number], [place] [address]- 1296 Mar, [facility] [id number], [place] [address] 2546 Oct, [facility] [id number], [place] [address]- 9330 Sep, [facility] [id number], [place] [address]- 2546 Mar, [facility] [id number] [place] [address]- 3712 Jan, [facility] [id number], [place] [address]- 1396 Jan, [facility] [id number], [place] [address]- 8780 May, IMMUNIZATIONS Vaccine Route Administration Date Status DEPO MEDROL 40 MG/ML IM Intramuscular Dec 16, 2016 Administered SOCIAL HISTORY Never Assessed REASON FOR VISIT Sinus c/o, CRyburn,CCMA PLAN OF CARE Activity Details Follow Up prn Reason: VITAL SIGNS Height 62 in 2016-12-16 Weight 165.8 lbs 2016-12-16 Temperature 97.9 degrees Fahrenheit 2016-12-16 Heart Rate 84 bpm 2016-12-16 Respiratory Rate 20 2016-12-16 BMI 30.32 kg/m2 2016-12-16 Blood pressure systolic 127 mmHg 2016-12-16 Blood pressure diastolic 83 mmHg 2016-12-16 MEDICATIONS Medication Instructions Dosage Frequency Start Date End Date Duration Status Cyclobenzaprine HCl 10 mg orally tid prn 1 tablet Active Pravastatin Sodium 20 mg TAKE ONE TABLET BY MOUTH AT BEDTIME 30 Active Amlodipine Besylate 5 mg Orally Once a day 1 tablet 24h Active Meclizine HCl 25 MG Orally Once a day 1 tablet as needed 24h Active Triamterene-HCTZ 37.5-25 MG Orally Once a day 1 tablet in the morning 24h 30 Active Klor-Con 10 10 MEQ Orally Once a day 2 tablet with food 24h Active Ibuprofen 800 MG Orally PRN for pain 1 tablet as needed Active Hydrocodone-Acetaminophen 5-325 MG Orally 3 -4 times a day prn. must last 4 weeks 1 tablet as needed Nov, 28 days Active RESULTS No Results PROCEDURES Procedure Date Ordered Result Body Site DEPO MEDROL 40 MG/ML Dec 16, 2016 THER/PROPH/DIAG INJ, SC/IM Dec 16, 2016 INSTRUCTIONS MEDICATIONS ADMINISTERED No Known Medications MEDICAL (GENERAL) HISTORY Type Description Date Medical History hypertension Medical History Colposcopy with loop electrode excision of the cervix was performed 06/2012, mild squamous atypia (no definite dyplasia). Performed at [facility] Dr. Joy. Medical History Acute suppurative [...]
--- OUTSIDE RECORDS SUMMARY | 2018-06-10 04:39 | XMS REPORT ---
Author Author TANNA HAINES Organization [facility] Address [address] [place] [address] Care Team Providers Care Sports Physiologist Name Role Phone TANNA HAINES Unavailable PROBLEMS Type Condition ICD9-CM Code [id number] Code Onset Dates Condition Status SNOMED Code Problem Hematuria, unspecified type R31.9 Active 78996539 Problem Anxiety F41.9 Active 49494777 Problem Abnormal renal ultrasound R93.429 Active [id number] Problem Abnormal glucose R73.09 Active 626100912 Problem 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 Active 355184520 Problem Hypokalemia E87.6 Active 73800719 Problem Neck pain M54.2 Active 14439081 Problem 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 Active 136072440521 Problem Mixed hyperlipidemia E78.2 Active 99325988 Problem Essential hypertension I10 Active 29965088 ALLERGIES No Information ENCOUNTERS Encounter Location Date Diagnosis [place] [address] [address]326- [address] 08 Feb, 2018 [place] [address] 93944- 9181 13 Dec, 2017 Lateral epicondylitis, right elbow M77.11 [place] [address] 08249- 2820 11 Dec, 2017 Allergic rhinitis due to pollen, unspecified seasonality J30.1 and Allergic conjunctivitis of both eyes H10.13 [place] [address] 99136- 5441 10 Dec, 2017 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 [place] [address] 33861- 0068 06 Dec, 2017 Mixed hyperlipidemia E78.2 [place] [address] [place] [id number] [place] [address] 39075- 3287 Dec, Abnormal glucose R73.09 ; Abnormal renal ultrasound R93.429 ; Dysuria R30.0 ; Cystitis without hematuria N30.90 ; Hypokalemia E87.6 ; Mixed hyperlipidemia E78.2 and Hematuria, unspecified type R31.9 [place] [address] [place] [id number] [place] [address] 91094- 8871 Nov, Hypokalemia E87.6 ; Mixed hyperlipidemia E78.2 and Hematuria , unspecified type R31.9 [place] [address] [place] [id number] [place] [address] 40512- 1422 Nov, [place] [address] 65769- 2897 Nov, Hypokalemia E87.6 [place] [address] 80469- 3203 Nov, [place] [address] [place] [id number] [place] [address] 49875- 9042 Nov, Abnormal renal ultrasound R93.429 [place] [address] 18313- 1326 Nov, Abnormal renal ultrasound R93.429 [place] [address] [place] [id number] [place] [address] 72204- 0386 Nov, Hematuria, unspecified type R31.9 and 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 [place] [address] [place] [id number] [place] [address] 62951- 6194 Nov, Dysuria R30.0 [place] [address] 23186- 3346 Oct, Lateral epicondylitis, right elbow M77.11 [place] [address] [place] [id number] [place] [address] 25120- 1034 Oct, 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 ; Visit for TB skin test Z11.1 and Essential hypertension I10 [place] [address] [place] [id number] [place] [address] 78085- 4217 16 Oct, 2017 [place] [address] [place] [id number] [place] [address] 19435- 4434 Oct, 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 [place] [address] 10467- 1651 10 Oct, 2017 Visit for TB skin test Z11.1 [place] [address] [place] [id number] [place] [address] 83014- 2592 05 Oct, 2017 Cystitis without hematuria N30.90 [place] [address] [place] [id number] [place] [address] 56998- 8431 28 Sep, 2017 Screening breast examination Z12.39 [place] [address] [place] [id number] [place] [address] 94727- 3600 26 Sep, 2017 Dysuria R30.0 and Cystitis without hematuria N30.90 [place] [address] [place] [id number] [place] [address] 61767- 3473 14 Sep, 2017 Essential hypertension I10 and 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 [place] [address] [place] [id number] [place] [address] 74277- 9102 Sep, Abnormal glucose R73.09 [place] [address] [place] [id number] [place] [address] 60396- 6380 August, Lateral epicondylitis, right elbow M77.11 [place] [address] [place] [id number] [place] [address] 69677- 3744 August, Screen for STD (sexually transmitted disease) Z11.3 [place] [address] [place] [id number] [place] [address] 40310- 6281 August, 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 ; Mixed hyperlipidemia E78.2 ; Elevated fasting glucose R73.01 ; Screening mammogram, encounter for Z12.31 and Encounter for well woman exam without gynecological exam Z00.00 [facility] [address] [place] [id number] [place] [address] 02202- 2197 August, 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 [facility] [address] [place] [id number] [place] [address] 40341- 9028 August, Essential hypertension I10 ; Hypokalemia E87.6 and Mixed hyperlipidemia E78.2 [place] [address] [place] [id number] [place] [address] 76885- 0975 Jul, [place] [address] [place] [id number] [place] [address] 24074- 9832 Jul, 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 [place] [address] [place] [id number] [place] [address] 62228- 2218 Jul, Lateral epicondylitis, right elbow M77.11 [place] [address] [place] [id number] [place] [address] 60320- 0110 Jul, [place] [address] [place] [id number] [place] [address] 42679- 3808 Jun, High ankle sprain of right lower extremity, initial encounter S93.431A [place] [id number] [place] [address] 51674- 8978 Jun, Essential hypertension I10 [place] [address] [place] [id number] [place] [address] 70814- 3786 Jun, [facility] [address] [place] [id number] [place] [address] 86922- 2541 Jun, [place] [address] [place] [id number] [place] [address] 40793- 7673 Jun, 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 [facility] [id number] [place] [address] 95201- 5803 Jun, Pain of right upper extremity M79.601 and Essential hypertension I10 [place] [address] [place] [id number] [place] [address] 89579- 2679 Jun, [place] [address] 58552- 1622 Jun, Dysuria R30.0 ; Acute cystitis with hematuria N30.01 and Screen for STD (sexually transmitted disease) Z11.3 [place] [id number] [place] [address] 89085- 0892 May, 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 [place] [address] [place] [id number] [place] [address] 27225- 4230 May, Essential hypertension I10 [address] 39405- 5518 May, 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 79259- 5682 Apr, Allergic reaction, initial encounter T78.40XA [place] [address] [place] [id number] [place] [address] 15218- 0663 Apr, Low back pain, unspecified back pain laterality, unspecified chronicity, with sciatica presence unspecified M54.5 ; Acute cystitis with hematuria N30.01 ; 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 ; Bilateral acute serous otitis media, recurrence not specified H65.03 ; Mixed hyperlipidemia E78.2 ; Essential hypertension I10 ; Immunization counseling Z71.89 and Encounter for immunization Z23 [place] [address] [place] [id number] [place] [address] 11071- 0379 Apr, Neck pain M54.[address] 68532- 6560 Mar, 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 [place] [address] [place] [id number] [place] [address] 54833- 4298 Mar, Pharyngitis due to other organism J02.8 [place] [address] [place] [id number] [place] [address] 06932- 7608 Feb, 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 [facility] [address] 81495- 5507 Feb, UTI (urinary tract infection) N39.0 [facility] [address] [place] [id number] [place] [address] 54537- 6832 Feb, Recent urinary tract infection Z87.440 ; 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 ; Neck pain M54.2 ; 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 and Recurrent UTI N39.0 [place] [address] 48307- 7245 Feb, [place] [address] [place] [id number] [place] [address] 67333- 0623 Jan, 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 [place] [address] 85793- 2025 Dec, 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 [place] [address] 70001- 3047 Dec, Acute seasonal allergic rhinitis due to pollen J30.1 [place] [address] [place] [id number] [place] [address] 46570- 6998 Dec, [place] [address] 88490- 2986 Dec, Acute seasonal allergic rhinitis, unspecified trigger J30.2 ; Allergic conjunctivitis of both eyes H10.13 and Dysfunction of both eustachian tubes H69.83 [place] [address] 60309- 6337 Dec, [place] [address] 74606- 0539 06 Dec, 2016 Nevus D22.9 [place] [address] 68698- 0103 Nov, 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 and 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 [facility] [address] [place] [id number] [place] [address] 18742- 9092 Nov, 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 ; Essential hypertension I10 ; Mixed hyperlipidemia E78.2 ; Hypokalemia E87.6 ; Neck pain M54.2 and Nevus D22.9 [facility] [address] [place] [id number] [place] [address] 93693- 8060 Oct, 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 [place] [address] [place] [id number] [place] [address] 28116- 6768 Sep, 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 [place] [address] [place] [id number] [place] [address] 55440- 8686 Sep, [facility] [address] [place] [id number] [place] [address] 98992- 4463 August, [facility] [address] [place] [id number] [place] [address] 70721- 9397 August, Neck pain M54.2 and 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 [facility] [address] [place] [id number] [place] [address] 69264- 3208 August, Routine gynecological examination Z01.419 and Screening breast examination Z12.39 [facility] [address] [place] [id number] [place] [address] 88250- 8454 Jul, [facility] [address] [place] [id number] [place] [address] 35991- 6788 Jul, [facility] [address] [place] [id number] [place] [address] 32463- 1270 Jul, 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 [facility] [address] [place] [id number] [place] [address] 19192- 4176 Jul, [place] [id number] [place] [address] 50540- 9387 Jul, 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 [place] [address] [place] [id number] [place] [address] 35632- 2219 Jul, [place] [address] [place] [id number] [place] [address] 88023- 7795 Jul, [place] [address] [place] [id number] [place] [address] 13404- 9936 Jun, 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 [place] [address] [place] [id number] [place] [address] 67453- 4525 Jun, Uterine leiomyoma, unspecified location D25.9 and Allergic reaction caused by a drug, initial encounter T78.40XA [place] [address] [place] [id number] [place] [address] 38747- 6989 Jun, [place] [address] [place] [id number] [place] [address] 21257- 8818 May, UTI symptoms R39.9 and Pain of right sacroiliac joint M53.3 [place] [address] [place] [id number] [place] [address] 26435- 3243 May, 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 [place] [address] [place] [id number] [place] [address] 86662- 0225 May, [place] [address] [place] [id number] [place] [address] 40743- 0123 May, Acute mucoid otitis media of left ear H65.112 and Acute non- recurrent maxillary sinusitis J01.00 [place] [id number] [place] [address] 32031- 3509 May, Acute bacterial conjunctivitis of both eyes H10.33 ; Left arm pain M79.602 and Hypokalemia E87.6 [place] [address] [place] [id number] [place] [address] 26715- 3909 Apr, [place] [address] [place] [id number] [place] [address] 64120- 9562 Apr, 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 ; Neck pain M54.2 ; 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 ; Mixed hyperlipidemia E78.2 ; Essential hypertension I10 and Hypokalemia E87.6 [place] [address] 41050- 9643 Mar, Oral candidiasis B37.0 ; 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 ; Neck pain M54.2 and 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 [place] [address] [place] [id number] [place] [address] 45139- 2522 Feb, [place] [address] [place] [id number] [place] [address] 35040- 5757 Feb, [place] [address] [place] [id number] [place] [address] 89171- 1106 Feb, UTI (urinary tract infection) N39.0 [place] [address] [place] [id number] [place] [address] 01007- 6098 Feb, Dysuria R30.0 [place] [address] [place] [id number] [place] [address] 26088- 8646 Feb, Dysuria R30.0 [place] [address] [place] [id number] [place] [address] 94883- 9250 Feb, 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 ; Neck pain M54.2 ; Essential hypertension I10 ; 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 ; Dysuria R30.0 ; Abnormal MRI, shoulder R93.8 and Acute cystitis without hematuria N30.00 [place] [id number] [place] [address] 88599- 6782 Jan, [place] [address] [place] [id number] [place] [address] 42968- 5155 Jan, [facility] [address] [address]- 6750 Jan, [facility] [address] [place] [id number] [place] [address] 95181- 5147 Jan, Abnormal MRI R93.8 [facility] [address] [place] [id number] [place] [address] 39246- 1135 29 Dec, 2015 [facility] [address] [place] [id number] [place] [address] 96740 -1913 15 Dec, 2015 Acute pain of left shoulder M25.512 [facility] [address] [place] [id number] [place] [address] 25310- 3698 09 Dec, 2015 [facility] [address] [place] [id number] [place] [address] 35925- 1526 08 Dec, 2015 [facility] [address] [place] [id number] [place] [address] 28103- 6106 07 Dec, 2015 Acute pain of left shoulder M25.512 [facility] [address] [place] [id number] [place] [address] 73101- 3401 Nov, [facility] [address] [place] [id number] [place] [address] 25519- 0924 16 Nov, 2015 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 ; Neck pain M54.2 ; Abnormal mammogram R92.8 ; Essential hypertension I10 and 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 [facility] [address] [place] [id number] [place] [address] 29675- 0246 Nov, [facility] [address] [place] [id number] [place] [address] 80003- 1639 Oct, Acute stress disorder F43.0 [facility] [address] [place] [id number] [place] [address] 32636- 1985 Oct, [facility] [address] [place] [id number] [place] [address] 89121- 2880 Oct, [facility] [address] [address]- 2717 Oct, [facility] [id number] [place] [address] 81852- 1136 Sep, [facility] [address] [address]- 8586 August, [facility] [id number] [place] [address] 26045- 4371 Jul, 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 ; Neck pain M54.2 ; Abnormal mammogram R92.8 and Essential hypertension I10 [facility] [address] [place] [id number] [place] [address] 17731- 3042 Jul, [facility] [address] [place] [id number] [place] [address] 16903- 1802 Jul, [facility] [address] [place] [id number] [place] [address] 32982- 4448 Jul, Abnormal mammogram R92.8 [facility] [id number] [place] [address] 73385- 2176 Jul, [facility] [id number] [place] [address] 98287- 5514 Jul, UTI (urinary tract infection) N39.0 [facility] [id number] [place] [address] 91070- 6461 Jul, Dysuria R30.0 [facility] [address] [address]- 8073 Jun, [facility] [id number] [place] [address] 06799- 7486 Jun, [facility] [id number] [place] [address] 62603- 0618 Jun, Hypokalemia E87.6 and Hematuria R31.9 [facility] [address] [place] [id number] [place] [address] 47342- 2131 Jun, Hypokalemia E87.6 [place] [address] [place] [id number] [place] [address] 24159- 5877 Jun, [place] [address] [place] [id number] [place] [address] 88996- 7883 Jun, Hypokalemia E87.6 [place] [address] [place] [id number] [place] [address] 37400- 8482 Jun, Hypokalemia E87.6 [place] [address] [place] [id number] [place] [address] 01574- 1124 15 Jun, 2015 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 ; Hypokalemia E87.6 ; Neck pain M54.2 ; Essential hypertension I10 ; Mixed hyperlipidemia E78.2 and Screening breast examination Z12.39 [place] [address] [place] [id number] [place] [address] 03354- 6380 Jun, Dysuria R30.0 ; UTI (urinary tract infection) N39.0 and Hematuria R31.9 [place] [address] [place] [id number] [place] [address] 29536- 1875 May, [place] [address] [place] [id number] [place] [address] 88030- 0730 May, High risk sexual behavior Z72.51 ; Hypokalemia E87.6 ; 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 ; Neck pain M54.2 ; Essential hypertension I10 ; Mixed hyperlipidemia E78.2 ; STD exposure Z20.2 and Concern about STD in female without diagnosis Z71.1 [place] [address] [place] [id number] [place] [address] 77458- 8575 16 May, 2015 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 ; Neck pain M54.2 ; Hypokalemia E87.6 ; Essential hypertension I10 and Mixed hyperlipidemia E78.2 [place] [address] [place] [id number] [place] [address] 86201- 9170 May, [facility] [id number] [place] [address] 67083 -2600 08 May, 2015 High risk sexual behavior Z72.51 ; STD exposure Z20.2 and Concern about STD in female without diagnosis Z71.1 [facility] [address] [place] [id number] [place] [address] 59138- 4724 May, [facility] [address] 29760- 2859 Apr, 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 ; Mixed hyperlipidemia E78.2 ; Essential hypertension I10 and Hypokalemia E87.6 [place] [address] [place] [id number] [place] [address] 54645- 1450 Mar, [facility] [address] [place] [id number] [place] [address] 39646- 6744 Mar, Hypokalemia E87.6 [place] [address] [place] [id number] [place] [address] 78221- 9830 Mar, 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 ; Mixed hyperlipidemia E78.2 ; Neck pain M54.2 ; Essential hypertension I10 ; Abnormal fasting glucose R73.09 ; Hypokalemia E87.6 and Constipation K59.00 [place] [address] [place] [id number] [place] [address] 46342- 9223 Feb, 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 ; Mixed hyperlipidemia E78.2 ; Neck pain M54.2 ; Essential hypertension I10 ; Abnormal fasting glucose R73.09 ; Hypokalemia E87.6 and Constipation K59.00 [place] [address] [place] [id number] [place] [address] 66077- 9573 Feb, Elevated fasting blood sugar R73.01 [place] [id number] [place] [address] 47748- 2729 Feb, Elevated fasting blood sugar R73.01 [place] [address] [place] [id number] [place] [address] 66769- 9541 Feb, Hair loss L65.9 [place] [address] 26159- 6763 Feb, Sinusitis J32.9 ; Essential hypertension I10 and Hair loss L65.9 [place] [address] 16853- 3990 Jan, [place] [address] 94115- 9489 Jan, Essential hypertension I10 ; 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 ; Neck pain M54.2 ; Mixed hyperlipidemia E78.2 and Anxiety F41.9 [place] [address] [place] [id number] [place] [address] 15347- 8103 Jan, [place] [address] 21019- 6911 Jan, Mixed hyperlipidemia E78.2 ; Essential (primary) hypertension I10 ; Strain of muscle, fascia and tendon at neck level, subsequent encounter S16.1XXD and Tension-type headache, unspecified, not intractable G44.209 [place] [address] [place] [id number] [place] [address] 52728- 8769 Dec, Lumbar back pain 724.2 and Neuroforaminal stenosis of spine 724.00 [place] [address] [place] [id number] [place] [address] 84432- 8543 Nov, [place] [address] 17172- 4515 Nov, Lumbar back pain 724.2 and Neuroforaminal stenosis of spine 724.00 [place] [address] 76330- 4601 Nov, Edema 782.3 ; Lumbar back pain 724.2 ; Essential hypertension, benign 401.1 ; Hyperlipemia 272.4 ; Neuroforaminal stenosis of spine 724.00 and Post-concussion headache 339.20 [facility] [address], [place] [address]- 9237 Nov, [facility] [address] [place] [id number] [place] [address] Nov, [facility] [address] [id number] [place] [address]- [address] Oct, Essential hypertension, benign 401.1 [facility] [id number] [place] [address]- [address] Oct, Edema 782.3 ; Lumbar back pain 724.2 ; Essential hypertension, benign 401.1 ; Hyperlipemia 272.4 ; Neuroforaminal stenosis of spine 724.00 and Post-concussion headache 339.20 [facility] [address] [id number] [place] [address]- [address] Oct, [facility] [address] [place] [id number] [place] [address]- [address]507 Oct, Edema 782.3 [facility] [address] [place] [id number] [place] [address]- 8571 Oct, Lumbar back pain 724.2 [facility] [address] [place] [id number] [place] [address]- 6005 Oct, Cervicalgia 723.1 ; Lumbar back pain 724.2 and High risk medication use V58.69 [facility] [id number] [place] [address] 7[address]- [address] Sep, [facility] [id number] [place] [address] 94393- 8887 Sep, Lumbar strain 847.2 [facility] [address] [place] [id number] [place] [address] 14[address]- 2111 August, Edema 782.3 and Eustachian tube dysfunction 381.81 [facility] [id number] [place] [address] 01157- 25[address] August, [facility] [address], [place] [address] August, Eustachian tube dysfunction 381.81 [facility] [address] [id number] [place] [address], [place] [address] Jul, Otalgia 388.70 and Otitis media 382.9 [facility] [id number] [place] [address] Jul, [facility] [id number] [place] [address] 45[address]- 9460 Jul, [facility] [id number] [place] [address], [place] [address] Jul, [facility] [facility] [address] [id number] [address] Jul, [facility] [id number] [place] [address] Jul, [facility] [id number], [place] [address] Jun, [facility] [id number], [place] [address] Jun, [facility] [id number], [place] [address] 8220 Jun, [facility] [id number], [place] [address] 1073 May, [facility] [id number], [place] [address] May, [facility] [id number] 8140 May, [facility] [id number] [address] May, [facility] [id number], [place] [address]39 May, [facility] [place] [facility] [address] [id number] [place] [address]- 36[address] May, [facility] [place] [facility] [address] [id number] [place] [address]- 0510 May, [facility] [place] [facility] [address] [id number] [place] [address]- 3495 May, [facility] [place] [facility] [address] [id number] [place] [address]- 5637 May, [facility] [place] [facility] [address] [id number] [place] [address]- 0666 May, [facility] [place] [facility] [address] [id number] [place] [address]- 9405 Apr, [facility] [place] [facility] [address] [id number] [place] [address]- 1314 Apr, [facility] [place] [facility] [address] [id number] [place] [address]- 1948 Apr, [facility] [place] [facility] [address] [id number] [place] [address]- 1823 Apr, [facility] [place] [facility] [address] [id number] [place] [address]- 4296 Apr, [facility] [place] [facility] [address] [id number] [place] [address]- 4754 Apr, [facility] [place] [facility] [address] [id number] [place] [address]- 6832 Apr, [facility] [place] [facility] [address] [id number] [place] [address]- 0223 Apr, [facility] [place] [facility] [address] [id number] [place] [address]- 1081 Apr, [facility] [place] [facility] [address] [id number] [place] [address]- 1791 Apr, [facility] [place] [facility] [address] [id number] [place] [address]- 2963 Apr, [facility] [place] [facility] [address] [id number] [place] [address]- 5785 Apr, [facility] [place] [facility] [address] [id number] [place] [address]- 7277 Apr, [facility] [place] [facility] [address] [id number] [place] [address]- 5532 Apr, [facility] [place] [facility] [address] [id number] [place] [address]- 2730 Apr, [facility] [place] [facility] [address] [id number] [place] [address] Mar, [facility] [place] [facility] [address] [id number] [place] [address]- 3124 Mar, [facility] [place] [facility] [address] [id number] [place] [address]- 8857 Mar, [facility] [place] [facility] [address] [id number] [place] [address]- 5719 Mar, [facility] [place] [facility] [address] [id number] [place] [address]- 2358 Feb, [facility] [place] [facility] [address] [facility] [id number] [place] [address]- 0875 Feb, [facility] [place] [facility] [address] [id number] [place] [address]- 7659 Feb, [facility] [place] [facility] [address] [id number], [place] [address]- 8028 Feb, [facility] [place] [facility] [address] [id number], [place] [address]- 6[address] Jan, [facility] [place] [facility] [address] [id number], [place] [address]- 4627 Jan, [facility] [place] [facility] [address] [id number], [place] [address]- 8962 Jan, [facility] [place] [facility] [address] [id number] [place] [address]- 6152 Jan, [facility] [place] [facility] [address] [id number] [place] [address]- 2107 Jan, [facility] [place] [facility] [address] [id number] [place] [address]- 0471 Jan, [facility] [place] [facility] [address] [id number] [place] [address]- 9366 Jan, [facility] [place] [facility] [address] [id number] [place] [address]- 4814 Jan, [facility] [place] [facility] [address] [id number] [place] [address]- 9109 Dec, [facility] [place] [facility] [address] [id number] [place] [address]- 7469 Dec, [facility] [place] [facility] [address] [id number] [place] [address]- 9308 Dec, [facility] [place] [facility] [address] [id number] [place] [address]- 2168 Dec, [facility] [place] [facility] [address] [id number] [place] [address]- 3185 Oct, [facility] [place] [facility] [address] [id number] [place] [address]- 0776 Oct, [facility] [place] [facility] [address] [id number] [place] [address]- 6841 Oct, [facility] [place] [facility] [address] [id number] [place] [address]- 4784 Oct, [facility] [place] [facility] [address] [id number] [place] [address]- 4542 Oct, [facility] [place] [facility] [address] [id number] [place] [address]- 0048 Oct, [facility] [place] [facility] [address] [id number] [place] [address]- 4341 Oct, [facility] [place] [facility] [address] [id number] [place] [address]- 9773 Oct, [facility] [place] [facility] [address] [id number] [place] [address]- 9741 Sep, [facility] [place] [facility] [address] [id number] [place] [address]- 0387 Sep, [facility] [place] [facility] [address] [id number] [place] [address]- 8893 Sep, [facility] [place] [facility] [address] [id number] [place] [address]- 1701 Sep, [facility] [place] [facility] [address] [id number] [place] [address]- 0124 Sep, [facility] [place] [facility] [address] [id number] [place] [address]- 8674 Sep, [facility] [place] [facility] [address] [id number] [place] [address]- 6724 Sep, [facility] [place] [facility] [address] [id number] [place] [address]- 7563 Sep, [facility] [place] [facility] [address] [id number] [place] [address]- 4098 Sep, [facility] [place] [facility] [address] [id number], [place] [address]- 6957 Sep, [facility] [place] [facility] [address] [id number], [place] [address]- 6890 August, [facility] [place] [facility] [address] [id number] [place] [address]- 1869 August, [facility] [place] [facility] [address] [id number] [place] [address]- 3392 August, [facility] [place] [facility] [address] [id number] [place] [address]- 1585 August, [facility] [place] [facility] [address] [id number] [place] [address]- 4491 August, [facility] [address] [id number] [place] [address]- 7694 August, [facility] [place] [facility] [address] [id number] [place] [address]- 9236 August, [facility] [place] [facility] [address] [id number] [place] [address]- 5290 August, [facility] [place] [facility] [address] [id number] [place] [address]- 4345 August, [facility] [place] [facility] [address] [id number] [place] [address]- 7338 August, [facility] [place] [facility] [address] [id number] [place] [address]- 4207 August, [facility] [address] [id number] [place] [address]- 9192 August, [facility] [place] [facility] [address] [id number] [place] [address]- 6666 Jul, [facility] [place] [facility] [address] [id number] [place] [address]- 2163 Jul, [facility] [place] [facility] [address] [id number] [place] [address]- 7528 Jul, [facility] [place] [facility] [address] [id number] [place] [address]- 9326 Jul, [facility] [place] [facility] [address] [id number] [place] [address]- 1958 Jul, [facility] [place] [facility] [address] [id number] [place] [address]- 5007 Jul, [facility] [place] [facility] [address] [id number] [place] [address]- 6553 Jun, [facility] [place] [facility] [address] [id number] [place] [address]- 6426 Jun, [facility] [place] [facility] [address] [id number] [place] [address]- 5330 May, [facility] [place] [facility] [address] [id number] [place] [address]- 5054 May, [facility] [place] [facility] [address] [id number] [place] [address]- 6179 Apr, [facility] [place] [facility] [address] [id number] [place] [address]- 0877 Apr, [facility] [place] [facility] [address] [id number] [place] [address]- 3758 Apr, [facility] [place] [facility] [address] [id number] [place] [address]- 9229 Apr, [facility] [place] [facility] [address] [id number] [place] [address]- 7728 Apr, [facility] [place] [facility] [address] [id number] [place] [address]- 7970 Apr, [facility] [place] [facility] [address] [id number] [place] [address]- 7637 Apr, [facility] [place] [facility] [address] [id number] [place] [address]- 5619 Apr, [facility] [place] [facility] [address] [id number], [place] [address]- 5431 Apr, [facility] [place] [facility] [address] [id number], [place] [address]- 4041 Apr, [facility] [place] [facility] [address] [id number] [place] [address]- 4809 Apr, [facility] [place] [facility] [address] [id number] [place] [address]- 5428 Apr, [facility] [place] [facility] [address] [id number], [place] [address]- 8723 Apr, [facility] [place] [facility] [address] [id number], [place] [address]- 8215 Mar, [facility] [place] [facility] [address] [id number] [place] [address]- 3320 Mar, [facility] [place] [facility] [address] [id number] [place] [address]- 5600 Mar, [facility] [place] [facility] [address] [id number] [place] [address]- 4317 Mar, [facility] [place] [facility] [address] [id number] [place] [address]- 6350 Feb, [facility] [place] [facility] [address] [id number] [place] [address]- 0258 Feb, [facility] [place] [facility] [address] [id number] [place] [address]- 1225 Feb, [facility] [place] [facility] [address] [facility] [id number] [place] [address]- 7806 Feb, [facility] [place] [facility] [address] [id number] [place] [address]- 1570 Jan, [facility] [place] [facility] [address] [facility] [id number] [place] [address]- 9955 14 Jan, 2013 [facility] [place] [facility] [address] [facility] [id number] [place] [address]- 0910 Jan, [facility] [place] [facility] [address] [id number], [place] [address]- 0654 Jan, [facility] [place] [facility] [address] [id number], [place] [address]- 9013 Jan, [facility] [place] [facility] [address] [id number], [place] [address]- 3351 Jan, [facility] [place] [facility] [address] [facility] [id number], [place] [address]- 0721 Jan, [facility] [place] [facility] [address] [facility] [id number], [place] [address]- 2947 09 Jan, 2013 [facility] [place] [facility] [address] [id number] [place] [address]- 2597 Jan, [facility] [address] [id number] [place] [address]- 4586 26 Dec, 2012 [facility] [place] [facility] [address] [id number] [place] [address]- 8716 16 Dec, 2012 [facility] [address] [id number] [place] [address]- 2626 16 Dec, 2012 [facility] [place] [facility] [address] [id number] [place] [address]- 2442 13 Dec, 2012 [facility] [address] [id number] [place] [address]- 9840 Nov, [facility] [place] [facility] [address] [id number] [place] [address]- 6253 Nov, [facility] [place] [facility] [address] [id number] [place] [address]- 3484 Nov, [facility] [address] [id number] [place] [address]- 5522 Nov, [facility] [place] [facility] [address] [id number] [place] [address]- 9102 Oct, [facility] [address] [id number] [place] [address]- 7703 Sep, [facility] [place] [facility] [address] [id number] [place] [address]- 1298 August, [facility] [place] [facility] [address] [id number] [place] [address]- 6012 August, [facility] [place] [facility] [address] [id number] [place] [address]- 0491 August, [facility] [place] [facility] [address] [id number] [place] [address]- 7356 August, [facility] [place] [facility] [address] [id number] [place] [address]- 2719 15 Aug, 2012 [facility] [address] [id number] [place] [address]- 3533 August, [facility] [address] [id number] [place] [address]- 7126 August, [facility] [address] [id number] [place] [address]- 7273 August, [facility] [address] [id number] [place] [address]- 3474 August, [facility] [address] [id number] [place] [address]- 9444 August, [facility] [address] [id number] [place] [address]- 6732 August, [facility] [address] [id number] [place] [address]- 6614 August, [facility] [address] [id number] [place] [address]- 7039 Jul, [facility] [address] [id number] [place] [address]- 1057 Jul, [facility] [address] [id number] [place] [address]- 7272 Jul, [facility] [address] [id number] [place] [address]- 6037 15 Jul, 2012 [facility] [place] [facility] [address] [id number], [place] [address]- 4659 Jul, [facility] [place] [facility] [address] [id number] [place] [address]- 5372 Jul, [facility] [place] [facility] [address] [id number] [place] [address]- 7796 04 Jul, 2012 [facility] [place] [facility] [address] [id number] [place] [address]- 7768 Jul, [facility] [place] [facility] [address] [id number] [place] [address]- 0716 Jul, [facility] [address] [id number] [place] [address]- 5716 Jul, [facility] [place] [facility] [address] [id number] [place] [address]- 2256 Jul, [facility] [address] [facility] [id number] [place] [address]- 0666 Jun, [facility] [address] [id number] [place] [address]- 3444 Jun, [facility] [address] [id number] [place] [address]- 2559 Jun, [facility] [address] [facility] [id number] [place] [address]- 2546 Jun, [facility] [address] [id number] [place] [address]- 8229 May, [facility] [address] [id number] [place] [address]- 1375 14 May, 2012 [facility] [address] [id number] [address]- 1746 05 May, 2012 [facility] [address] [facility] [id number] [place] [address]- 9618 May, [facility] [place] [facility] [address] [facility] [id number] [place] [address]- 2546 May, [facility] [address] [id number] [place] [address]- 2546 May, [facility] [place] [facility] [address] [id number] [place] [address]- 2546 Apr, [facility] [place] [facility] [address] [id number] [place] [address]- 2546 Apr, [facility] [place] [facility] [address] [facility] [id number] [place] [address]- 5027 Apr, [facility] [place] [facility] [address] [id number] [place] [address]- 3375 Apr, [facility] [place] [facility] [address] [id number] [place] [address]- 0509 Mar, [facility] [place] [facility] [address] [id number] [place] 5349 Mar, [facility] [place] [facility] [address] [id number] [place] [address]- 4495 Mar, [facility] [place] [facility] [address] [id number] [place] [address]- 1590 Mar, [facility] [place] [facility] [address] [id number] [place] [address]- 5617 Mar, [facility] [place] [facility] [address] [id number] [place] [address]- 8556 Mar, [facility] [place] [facility] [address] [id number] [place] [address]- 3567 Mar, [facility] [place] [facility] [address] [id number] [place] [address]- 0824 Feb, [facility] [place] [facility] [address] [id number] [place] [address]- 2265 Feb, [facility] [place] [facility] [address] [id number] [place] [address]- 4775 Feb, [facility] [place] [facility] [address] [id number] [place] [address]- 9813 Feb, [facility] [place] [facility] [address] [id number] [place] [address]- 0702 Jan, [facility] [place] [facility] [address] [id number] [place] 0031 Jan, [facility] [place] [facility] [address] [id number] [place] [address]- 2467 Jan, [facility] [place] [facility] [address] [id number] [place] [address]- 0594 Jan, [facility] [address] [id number] [place] [address]- 9117 Jan, [facility] [place] [facility] [address] [id number] [place] [address]- 3001 Jan, [facility] [place] [facility] [address] [id number] [place] [address]- 3350 Dec, [facility] [place] [facility] [address] [id number] [place] [address]- 8024 Dec, [facility] [place] [facility] [address] [id number] [place] [address]- 9704 Nov, [facility] [place] [facility] [address] [id number] [place] [address]- 5404 Sep, [facility] [address] [id number] [place] [address]- 2196 August, [facility] [place] [facility] [address] [id number] [place] [address] August, [facility] [place] [facility] [address] [id number] [place] [address] August, [facility] [place] [facility] [address] [id number] [place] [address] August, [facility] [place] [facility] [address] [id number] [place] [address] August, [facility] [place] [facility] [address] [id number] [place] [address] Jun, [facility] [place] [facility] [address] [id number] [place] [address] Jun, [facility] [place] [facility] [address] [id number] [place] [address] Apr, [facility] [place] [facility] [address] [id number] [place] [address] Apr, [facility] [place] [facility] [address] [id number] [place] [address] 23 Mar, 2011 [facility] [place] [facility] [address] [id number] [place] [address] 22 Feb, 2011 [facility] [place] [facility] [address] [id number] [place] [address] 14 Feb, 2011 [facility] [place] [facility] [address] [id number] [place] [address] 14 Feb, 2011 [facility] [place] [facility] [address] [id number] [place] [address] 17 Jan, 2011 [facility] [place] [facility] [address] [id number] [place] [address] 15 Jan, 2011 [facility] [place] [facility] [address] [id number] [place] [address] 15 Jan, 2011 [facility] [place] [facility] [address] [id number] [place] [address] 14 Jan, 2011 [facility] [place] [facility] [address] [id number] [place] [address] 15 May, 2010 [facility] [place] [facility] [address] [id number] [place] [address] Mar, [facility] [place] [facility] [address] [id number] [place] [address] Oct, [facility] [place] [facility] [address] [id number] [place] [address] Sep, [facility] [place] [facility] [address] [id number] [place] [address] Mar, [facility] [place] [facility] [address] [id number] [place] [address] Jan, [facility] [place] [facility] [address] [id number] [place] [address] Jan, [facility] [place] [facility] [address] [id number] [place] [address] May, IMMUNIZATIONS No Known Immunizations SOCIAL HISTORY Never Assessed REASON FOR VISIT Hydrocodone 12/18 PLAN OF CARE VITAL SIGNS MEDICATIONS Medication Instructions Dosage Frequency Start Date End Date Duration Status Hydrocodone-Acetaminophen 5-325 MG Orally 3 -4 times a day prn. must last 4 weeks 1 tablet as needed Dec, 28 days Active RESULTS No Results PROCEDURES No Known procedures INSTRUCTIONS MEDICATIONS ADMINISTERED No Known Medications MEDICAL (GENERAL) HISTORY Type Description Date Medical History hypertension Medical History Colposcopy with loop electrode excision of the cervix was performed 06/2012, mild squamous atypia (no definite dyplasia). Performed at [facility] Dr. Joy. Medical History Acute [...]
--- OUTSIDE RECORDS SUMMARY | 2018-06-10 04:40 | XMS REPORT ---
Author Author BETI STAUFFER [facility] Address [address] [place] [address] Care Team Providers Care Marketing And Outreach Coordinator Name Role Phone BETI STAUFFER Unavailable PROBLEMS Type Condition ICD9-CM Code CFQ98-AY Code Onset Dates Condition Status SNOMED Code Problem Hematuria, unspecified type R31.9 Active 47142551 Problem Anxiety F41.9 Active 67361630 Problem Abnormal renal ultrasound R93.429 Active [id number] Problem Abnormal glucose R73.09 Active 066692496 Problem 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 Active 600967611 Problem Hypokalemia E87.6 Active 22196299 Problem Neck pain M54.2 Active 27268752 Problem 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 Active 461824408626 Problem Mixed hyperlipidemia E78.2 Active 16950075 Problem Essential hypertension I10 Active 66493494 ALLERGIES No Information ENCOUNTERS Encounter Location Date Diagnosis [place] [address] 69674- 4357 08 Feb, 2018 [place] [address] 32876- 2223 13 Dec, 2017 Lateral epicondylitis, right elbow M77.11 [place] [address] 26854- 8814 11 Dec, 2017 Allergic rhinitis due to pollen, unspecified seasonality J30.1 and Allergic conjunctivitis of both eyes H10.13 [place] [address] 64219- 1619 10 Dec, 2017 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 [place] [address] [place] [id number] [place] [address] 95658- 3291 06 Dec, 2017 Mixed hyperlipidemia E78.2 [place] [address] [place] [id number] [place] [address] 13708- 5447 Dec, Abnormal glucose R73.09 ; Abnormal renal ultrasound R93.429 ; Dysuria R30.0 ; Cystitis without hematuria N30.90 ; Hypokalemia E87.6 ; Mixed hyperlipidemia E78.2 and Hematuria, unspecified type R31.9 [place] [address] [place] [id number] [place] [address] 92712- 1372 Nov, Hypokalemia E87.6 ; Mixed hyperlipidemia E78.2 and Hematuria , unspecified type R31.9 [place] [address] [place] [id number] [place] [address] 67789- 6246 Nov, [place] [address] 32033- 2428 Nov, Hypokalemia E87.6 [place] [address] 66061- 7489 Nov, [place] [address] [place] [id number] [place] [address] 30028- 3068 Nov, Abnormal renal ultrasound R93.429 [place] [address] 90992- 7173 Nov, Abnormal renal ultrasound R93.429 [place] [address] [place] [id number] [place] [address] 58427- 4555 Nov, Hematuria, unspecified type R31.9 and 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 [place] [address] [place] [id number] [place] [address] 68849- 4564 Nov, Dysuria R30.0 [place] [address] 72584- 2318 Oct, Lateral epicondylitis, right elbow M77.11 [place] [address] [place] [id number] [place] [address] 91157- 9038 Oct, 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 ; Visit for TB skin test Z11.1 and Essential hypertension I10 [place] [address] [place] [id number] [place] [address] 50521- 2428 16 Oct, 2017 [place] [address] [place] [id number] [place] [address] 76123- 1453 Oct, 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 [place] [address] 70233- 0626 10 Oct, 2017 Visit for TB skin test Z11.1 [place] [address] [place] [id number] [place] [address] 49335- 6273 05 Oct, 2017 Cystitis without hematuria N30.90 [place] [address] [place] [id number] [place] [address] 56404- 0351 28 Sep, 2017 Screening breast examination Z12.39 [place] [address] 09625- 1400 26 Sep, 2017 Dysuria R30.0 and Cystitis without hematuria N30.90 [place] [address] [place] [id number] [place] [address] 76739- 1271 14 Sep, 2017 Essential hypertension I10 and 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 [place] [address] [place] [id number] [place] [address] 94658- 4117 Sep, Abnormal glucose R73.09 [place] [address] 07354- 2624 August, Lateral epicondylitis, right elbow M77.11 [place] [address] [place] [id number] [place] [address] 21130- 8817 August, Screen for STD (sexually transmitted disease) Z11.3 [place] [address] [place] [id number] [place] [address] 98273- 4050 August, 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 ; Mixed hyperlipidemia E78.2 ; Elevated fasting glucose R73.01 ; Screening mammogram, encounter for Z12.31 and Encounter for well woman exam without gynecological exam Z00.00 [facility] [address] [place] [id number] [place] [address] 46603- 8769 August, 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 [facility] [address] [place] [id number] [place] [address] 74748- 5553 August, Essential hypertension I10 ; Hypokalemia E87.6 and Mixed hyperlipidemia E78.2 [place] [address] 22597- 8622 Jul, [place] [address] [place] [id number] [place] [address] 97495- 9708 Jul, 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 [place] [address] [place] [id number] [place] [address] 17081- 6529 Jul, Lateral epicondylitis, right elbow M77.11 [place] [address] 39908- 9006 Jul, [place] [address] [place] [id number] [place] [address] 09549- 2819 Jun, High ankle sprain of right lower extremity, initial encounter S93.431A [place] [address] [place] [id number] [place] [address] 60610- 6457 Jun, Essential hypertension I10 [place] [address] [place] [id number] [place] [address] 96261- 3751 Jun, [facility] [address] [place] [id number] [place] [address] 77003- 3812 Jun, [place] [address] [place] [id number] [place] [address] 52772- 2874 Jun, 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 [facility] [address] [place] [id number] [place] [address] 92190- 3527 Jun, Pain of right upper extremity M79.601 and Essential hypertension I10 [place] [address] [place] [id number] [place] [address] 22294- 6713 Jun, [place] [address] [place] [id number] [place] [address] 54967- 6827 Jun, Dysuria R30.0 ; Acute cystitis with hematuria N30.01 and Screen for STD (sexually transmitted disease) Z11.3 [place] [address] [place] [id number] [place] [address] 86699- 0025 May, 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 [place] [address] [place] [id number] [place] [address] 89111- 5864 May, Essential hypertension I10 [place] [id number] [place] [address] 60127- 3490 May, 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 [place] [id number] [place] [address] 38049- 8261 Apr, Allergic reaction, initial encounter T78.40XA [place] [address] [place] [id number] [place] [address] 18120- 7567 Apr, Low back pain, unspecified back pain laterality, unspecified chronicity, with sciatica presence unspecified M54.5 ; Acute cystitis with hematuria N30.01 ; 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 ; Bilateral acute serous otitis media, recurrence not specified H65.03 ; Mixed hyperlipidemia E78.2 ; Essential hypertension I10 ; Immunization counseling Z71.89 and Encounter for immunization Z23 [place] [address] [place] [id number] [place] [address] 13027- 2606 Apr, Neck pain M54.2 [place] [id number] [place] [address] 87596- 8529 Mar, 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 [place] [address] [place] [id number] [place] [address] 30516- 3072 Mar, Pharyngitis due to other organism J02.8 [place] [address] [place] [id number] [place] [address] 18989- 7746 Feb, 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 [facility] [address] [place] [id number] [place] [address] 62416- 0796 Feb, UTI (urinary tract infection) N39.0 [facility] [address] [place] [id number] [place] [address] 03143- 8950 Feb, Recent urinary tract infection Z87.440 ; 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 ; Neck pain M54.2 ; 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 and Recurrent UTI N39.0 [facility] [address] 24689- 9698 Feb, [facility] [address] [place] [id number] [place] [address] 20649- 7691 Jan, 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 [facility] [address] 95788- 4408 Dec, 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 [facility] [address] [place] [id number] [place] [address] 85538- 0135 Dec, Acute seasonal allergic rhinitis due to pollen J30.1 [place] [address] [place] [id number] [place] [address] 36908- 7754 Dec, [facility] [address] 01822- 2071 Dec, Acute seasonal allergic rhinitis, unspecified trigger J30.2 ; Allergic conjunctivitis of both eyes H10.13 and Dysfunction of both eustachian tubes H69.83 [facility] [address] [place] [id number] [place] [address] 07807- 3504 Dec, [facility] [address] [place] [id number] [place] [address] 26442- 2638 06 Dec, 2016 Nevus D22.9 [facility] [address] 59318- 8412 Nov, 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 and 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 [facility] [address] [place] [id number] [place] [address] 18596- 1688 Nov, 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 ; Essential hypertension I10 ; Mixed hyperlipidemia E78.2 ; Hypokalemia E87.6 ; Neck pain M54.2 and Nevus D22.9 [facility] [address] [place] [id number] [place] [address] 48170- 3548 Oct, 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 [facility] [address] [place] [id number] [place] [address] 50776- 4836 Sep, 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 [facility] [address] [place] [id number] [place] [address] 01747- 0406 Sep, [facility] [address] [place] [id number] [place] [address] 66471- 3017 August, [facility] [address] [place] [id number] [place] [address] 33234- 4398 August, Neck pain M54.2 and 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 [facility] [address] [place] [id number] [place] [address] 61508- 5333 August, Routine gynecological examination Z01.419 and Screening breast examination Z12.39 [facility] [id number] [place] [address] 67197- 4211 Jul, [facility] [address] [place] [id number] [place] [address] 18824- 4750 Jul, [facility] [address] [place] [id number] [place] [address] 19537- 7651 Jul, 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 [facility] [address] [place] [id number] [place] [address] 31650- 0386 Jul, [place] [address] [place] [address] 10348- 8287 Jul, 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 [place] [address] [place] [id number] [place] [address] 40438- 6145 Jul, [place] [address] [place] [id number] [place] [address] 38273- 9767 Jul, [place] [address] [place] [id number] [place] [address] 74373- 5454 Jun, 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 [place] [address] [place] [id number] [place] [address] 79895- 8102 Jun, Uterine leiomyoma, unspecified location D25.9 and Allergic reaction caused by a drug, initial encounter T78.40XA [place] [address] [place] [id number] [place] [address] 68323- 9541 Jun, [place] [address] [place] [id number] [place] [address] 04641- 4184 May, UTI symptoms R39.9 and Pain of right sacroiliac joint M53.3 [place] [address] [place] [id number] [place] [address] 14317- 1060 May, 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 [place] [address] [place] [id number] [place] [address] 20992- 7595 May, [place] [address] [place] [id number] [place] [address] 53415- 0756 May, Acute mucoid otitis media of left ear H65.112 and Acute non- recurrent maxillary sinusitis J01.00 [place] [address] [place] [id number] [place] [address] 09939- 4077 May, Acute bacterial conjunctivitis of both eyes H10.33 ; Left arm pain M79.602 and Hypokalemia E87.6 [place] [address] [place] [address] [place] [address]- 1515 Apr, [place] [address] [place] [id number] [place] [address] 08037- 5888 Apr, 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 ; Neck pain M54.2 ; 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 ; Mixed hyperlipidemia E78.2 ; Essential hypertension I10 and Hypokalemia E87.6 [place] [address] 13260- 7025 Mar, Oral candidiasis B37.0 ; 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 ; Neck pain M54.2 and 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 [place] [address] [place] [id number] [place] [address] 67162- 3985 Feb, [place] [address] [place] [id number] [place] [address] 75769- 7386 Feb, [place] [address] [place] [id number] [place] [address] 74563- 6602 Feb, UTI (urinary tract infection) N39.0 [place] [address] [place] [id number] [place] [address] 68648- 1168 Feb, Dysuria R30.0 [place] [address] [place] [id number] [place] [address] 00328- 2704 Feb, Dysuria R30.0 [place] [address] [place] [id number] [place] [address] 22976- 4175 Feb, 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 ; Neck pain M54.2 ; Essential hypertension I10 ; 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 ; Dysuria R30.0 ; Abnormal MRI, shoulder R93.8 and Acute cystitis without hematuria N30.00 [facility] [address] [place] [address] 09153- 7297 Jan, [facility] [address] [place] [id number] [place] [address] 65512- 6392 Jan, [facility] [address] [address]- 7645 Jan, [facility] [address] [place] [id number] [place] [address] 63245- 1380 Jan, Abnormal MRI R93.8 [facility] [address] [place] [id number] [place] [address] 84783- 7895 29 Dec, 2015 [facility] [address] [place] [id number] [place] [address] 82696 -8346 15 Dec, 2015 Acute pain of left shoulder M25.512 [facility] [address] [place] [id number] [place] [address] 49213- 4261 09 Dec, 2015 [facility] [address] [place] [id number] [place] [address] 40888- 2421 08 Dec, 2015 [facility] [address] [place] [id number] [place] [address] 25055- 8880 07 Dec, 2015 Acute pain of left shoulder M25.512 [facility] [address] [place] [id number] [place] [address] 52499- 9782 Nov, [facility] [address] [place] [id number] [place] [address] 50067- 0380 16 Nov, 2015 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 ; Neck pain M54.2 ; Abnormal mammogram R92.8 ; Essential hypertension I10 and 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 [facility] [address] [place] [id number] [place] [address] 69313- 3861 Nov, [facility] [address] [place] [id number] [place] [address] 96916- 2231 Oct, Acute stress disorder F43.0 [facility] [address] [place] [id number] [place] [address] 39879- 1182 Oct, [facility] [address] [place] [id number] [place] [address] 60985- 5980 Oct, [facility] [address] [address]- 0363 Oct, [facility] [address] [place] [id number] [place] [address] 41374- 8982 Sep, [facility] [address] [place] [address] 41042- 5528 August, [facility] [address] [place] [id number] [place] [address] 35018- 4777 Jul, 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 ; Neck pain M54.2 ; Abnormal mammogram R92.8 and Essential hypertension I10 [facility] [address] [place] [id number] [place] [address] 58078- 7688 Jul, [facility] [address] [place] [id number] [place] [address] 54895- 9279 Jul, [facility] [address] [place] [id number] [place] [address] 82580- 0643 Jul, Abnormal mammogram R92.8 [facility] [address] [place] [address] 49348- 3921 Jul, [facility] [address] [place] [id number] [place] [address] 91277- 6264 Jul, UTI (urinary tract infection) N39.0 [facility] [address] [place] [address] 02939- 0576 Jul, Dysuria R30.0 [facility] [address] [place] [address] 69880- 5857 Jun, [facility] [address] [place] [id number] [place] [address] 94368- 5155 Jun, [facility] [address] [place] [id number] [place] [address] 42954- 7084 Jun, Hypokalemia E87.6 and Hematuria R31.9 [facility] [address] [place] [id number] [place] [address] 22366- 1099 Jun, Hypokalemia E87.6 [place] [address] [place] [id number] [place] [address] 21922- 2678 Jun, [place] [address] [place] [id number] [place] [address] 82273- 3516 Jun, Hypokalemia E87.6 [place] [address] [place] [id number] [place] [address] 18982- 3892 Jun, Hypokalemia E87.6 [place] [address] [place] [id number] [place] [address] 52860- 9673 15 Jun, 2015 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 ; Hypokalemia E87.6 ; Neck pain M54.2 ; Essential hypertension I10 ; Mixed hyperlipidemia E78.2 and Screening breast examination Z12.39 [place] [address] [place] [id number] [place] [address] 34903- 2891 Jun, Dysuria R30.0 ; UTI (urinary tract infection) N39.0 and Hematuria R31.9 [place] [address] [place] [id number] [place] [address] 95583- 4869 May, [place] [address] [place] [id number] [place] [address] 53282- 6644 May, High risk sexual behavior Z72.51 ; Hypokalemia E87.6 ; 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 ; Neck pain M54.2 ; Essential hypertension I10 ; Mixed hyperlipidemia E78.2 ; STD exposure Z20.2 and Concern about STD in female without diagnosis Z71.1 [place] [address] [place] [id number] [place] [address] 71375- 1374 16 May, 2015 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 ; Neck pain M54.2 ; Hypokalemia E87.6 ; Essential hypertension I10 and Mixed hyperlipidemia E78.2 [place] [address] [place] [id number] [place] [address] 21457- 9831 May, [facility] [address] [place] [address] 80695 -6671 08 May, 2015 High risk sexual behavior Z72.51 ; STD exposure Z20.2 and Concern about STD in female without diagnosis Z71.1 [facility] [address] [place] [address] 00365- 4453 05 May, 2015 [facility] [address] 57145- 1306 Apr, 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 ; Mixed hyperlipidemia E78.2 ; Essential hypertension I10 and Hypokalemia E87.6 [place] [address] [place] [id number] [place] [address] 03337- 2202 Mar, [facility] [address] [place] [id number] [place] [address] 37653- 0170 Mar, Hypokalemia E87.6 [place] [address] [place] [id number] [place] [address] 63276- 7820 Mar, 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 ; Mixed hyperlipidemia E78.2 ; Neck pain M54.2 ; Essential hypertension I10 ; Abnormal fasting glucose R73.09 ; Hypokalemia E87.6 and Constipation K59.00 [place] [address] [place] [id number] [place] [address] 73336- 4841 Feb, 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 ; Mixed hyperlipidemia E78.2 ; Neck pain M54.2 ; Essential hypertension I10 ; Abnormal fasting glucose R73.09 ; Hypokalemia E87.6 and Constipation K59.00 [place] [address] [place] [id number] [place] [address] 13480- 9154 Feb, Elevated fasting blood sugar R73.01 [place] [address] [place] [address] 00530- 8743 Feb, Elevated fasting blood sugar R73.01 [place] [address] [place] [id number] [place] [address] 66551- 0123 Feb, Hair loss L65.9 [place] [address] [place] [id number] [place] [address] 01626- 4720 Feb, Sinusitis J32.9 ; Essential hypertension I10 and Hair loss L65.9 [place] [address] [place] [id number] [place] [address] 40390- 8614 Jan, [place] [address] 77929- 6186 Jan, Essential hypertension I10 ; 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 ; Neck pain M54.2 ; Mixed hyperlipidemia E78.2 and Anxiety F41.9 [place] [address] [place] [id number] [place] [address] 18615- 4897 Jan, [place] [address] 22004- 6287 Jan, Mixed hyperlipidemia E78.2 ; Essential (primary) hypertension I10 ; Strain of muscle, fascia and tendon at neck level, subsequent encounter S16.1XXD and Tension-type headache, unspecified, not intractable G44.209 [place] [address] [place] [id number] [place] [address] 66520- 6526 Dec, Lumbar back pain 724.2 and Neuroforaminal stenosis of spine 724.00 [place] [address] [place] [id number] [place] [address] 12260- 0872 Nov, [place] [address] 98897- 0772 Nov, Lumbar back pain 724.2 and Neuroforaminal stenosis of spine 724.00 [place] [address] 45097- 6746 Nov, Edema 782.3 ; Lumbar back pain 724.2 ; Essential hypertension, benign 401.1 ; Hyperlipemia 272.4 ; Neuroforaminal stenosis of spine 724.00 and Post-concussion headache 339.20 [place] [address] [address]- 1474 Nov, [facility] [address] [place] [address] 74893- 3870 Nov, [facility] [address] [place] [address] [id number]- [phone] Oct, Essential hypertension, benign 401.1 [facility] [address] [id number] [place] [address] [id number]- 1517 Oct, Edema 782.3 ; Lumbar back pain 724.2 ; Essential hypertension, benign 401.1 ; Hyperlipemia 272.4 ; Neuroforaminal stenosis of spine 724.00 and Post-concussion headache 339.20 [facility] [id number] [place] [address] [id number]- 8206 Oct, [facility] [id number] [place] [address] 34657- [phone] Oct, Edema 782.3 [facility] [id number] [place] [address] 22452- 6135 Oct, Lumbar back pain 724.2 [facility] [id number] [place] [address] 35762- 6491 Oct, Cervicalgia 723.1 ; Lumbar back pain 724.2 and High risk medication use V58.69 [facility] [id number] [place] [address] [phone]- [phone] Sep, [facility] [id number] [place] [address] [id number]- [phone] Sep, Lumbar strain 847.2 [facility] [id number] [place] [address] 20535- 6619 August, Edema 782.3 and Eustachian tube dysfunction 381.81 [facility] [address], [place] [address] August, [facility] [address], [place] [address] August, Eustachian tube dysfunction 381.81 [facility] [id number] [place] [address], [place] [address] 8191 Jul, Otalgia 388.70 and Otitis media 382.9 [facility] [id number] [place] [place] [address] 10[address] Jul, [facility] [id number] [place] [address] 2153 Jul, [facility] [id number] [place] [address], [place] [address]- 9362 Jul, [facility] [id number] [address] Jul, [facility] [id number] [place] [address]- 5273 Jul, [facility] [id number], [place] [address] Jun, [facility] [address], [place] [address] 2052 Jun, [facility] [id number], [place] [address] 7521 Jun, [facility] [id number], [place] [address] 8585 May, [facility] [id number], [place] [address]- 5349 May, [facility] [id number] 1325 May, [facility] [id number] [address] [address] May, [facility] [id number] [address] May, [facility] [place] [facility] [address] [id number] [place] [address]- 9766 May, [facility] [place] [facility] [address] [id number] [place] [address]- 7994 May, [facility] [place] [facility] [address] [id number] [place] [address]- 0448 May, [facility] [place] [facility] [address] [id number] [place] [address]- 2459 May, [facility] [place] [facility] [address] [id number] [place] [address]- 0892 May, [facility] [place] [facility] [address] [id number] [place] [address]- 7292 Apr, [facility] [place] [facility] [address] [id number] [place] [address]- 0202 Apr, [facility] [place] [facility] [address] [id number] [place] [address]- 7064 Apr, [facility] [place] [facility] [address] [id number] [place] [address]- 8357 Apr, [facility] [place] [facility] [address] [id number] [place] [address]- 2944 Apr, [facility] [place] [facility] [address] [id number] [place] [address]- 7204 Apr, [facility] [place] [facility] [address] [id number] [place] [address]- 1518 Apr, [facility] [place] [facility] [address] [id number] [place] [address]- 0473 Apr, [facility] [place] [facility] [address] [id number] [place] [address]- 9399 Apr, [facility] [place] [facility] [address] [id number] [place] [address]- 4741 Apr, [facility] [place] [facility] [address] [id number], [place] [address]- 4837 Apr, [facility] [place] [facility] [address] [id number] [place] [address]- 1832 Apr, [facility] [place] [facility] [address] [id number] [place] [address]- 1162 Apr, [facility] [place] [facility] [address] [facility] [id number] [place] [address]- 2391 Apr, [facility] [place] [facility] [address] [id number] [place] [address]- 5539 Apr, [facility] [place] [facility] [address] [facility] [id number] [place] [address]- 3067 Mar, [facility] [place] [facility] [address] [facility] [id number] [place] [address]- 0175 Mar, [facility] [place] [facility] [address] [facility] [id number], [place] [address]- 3769 Mar, [facility] [place] [facility] [address] [facility] [id number] [place] [address]- 4755 Mar, [facility] [place] [facility] [address] [facility] [id number] [place] [address]- 2123 Feb, [facility] [place] [facility] [address] [facility] [id number], [place] [address]- 6866 Feb, [facility] [place] [facility] [address] [facility] [id number], [place] [address]- 7591 Feb, [facility] [place] [facility] [address] [facility] [id number], [place] [address]- 9688 Feb, [facility] [place] [facility] [address] [id number], [place] [address]- 1242 Jan, [facility] [place] [facility] [address] [facility] [id number], [place] [address]- 7689 Jan, [facility] [place] [facility] [address] [facility] [id number], [place] [address]- 8844 Jan, [facility] [place] [facility] [address] [id number] [place] [address]- 9791 Jan, [facility] [place] [facility] [address] [id number] [place] [address]- 3659 Jan, [facility] [place] [facility] [address] [id number] [place] [address]- 9918 Jan, [facility] [place] [facility] [address] [id number] [place] [address]- 0507 Jan, [facility] [place] [facility] [address] [id number] [place] [address]- 6172 Jan, [facility] [place] [facility] [address] [id number] [place] [address]- 9813 Dec, [facility] [place] [facility] [address] [id number] [place] [address]- 8424 Dec, [facility] [place] [facility] [address] [id number] [place] [address]- 2107 Dec, [facility] [place] [facility] [address] [id number] [place] [address]- 8497 Dec, [facility] [place] [facility] [address] [id number] [place] [address]- 2760 Oct, [facility] [place] [facility] [address] [id number] [place] [address]- 8013 Oct, [facility] [place] [facility] [address] [id number] [place] [address]- 6219 Oct, [facility] [place] [facility] [address] [id number] [place] [address]- 7049 Oct, [facility] [place] [facility] [address] [id number] [place] [address]- 4736 Oct, [facility] [place] [facility] [address] [id number] [place] [address]- 1442 Oct, [facility] [place] [facility] [address] [id number] [place] [address]- 7513 Oct, [facility] [place] [facility] [address] [id number] [place] [address]- 3118 Oct, [facility] [place] [facility] [address] [id number] [place] [address]- 5853 Sep, [facility] [place] [facility] [address] [id number] [place] [address]- 9397 Sep, [facility] [place] [facility] [address] [id number] [place] [address]- 9716 Sep, [facility] [place] [facility] [address] [id number] [place] [address]- 7382 Sep, [facility] [place] [facility] [address] [id number] [place] [address]- 6982 Sep, [facility] [place] [facility] [address] [id number] [place] [address]- 3004 Sep, [facility] [place] [facility] [address] [id number] [place] [address]- 7697 Sep, [facility] [place] [facility] [address] [id number] [place] [address]- 0208 Sep, [facility] [place] [facility] [address] [id number] [place] [address]- 3379 Sep, [facility] [place] [facility] [address] [id number] [place] [address]- 2737 Sep, [facility] [place] [facility] [address] [id number], [place] [address]- 2966 August, [facility] [place] [facility] [address] [id number] [place] [address]- 1869 August, [facility] [place] [facility] [address] [id number] [place] [address]- 7222 August, [facility] [place] [facility] [address] [id number] [place] [address]- 6060 August, [facility] [place] [facility] [address] [id number] [place] [address]- 5060 August, [facility] [place] [facility] [address] [id number] [place] [address]- 4665 August, [facility] [place] [facility] [address] [id number] [place] [address]- 1262 August, [facility] [place] [facility] [address] [id number] [place] [address]- 7789 August, [facility] [place] [facility] [address] [id number] [place] [address]- 1316 August, [facility] [place] [facility] [address] [id number] [place] [address]- 0540 August, [facility] [place] [facility] [address] [id number] [place] [address]- 3750 August, [facility] [place] [facility] [address] [id number] [place] [address]- 0103 August, [facility] [place] [facility] [address] [id number] [place] [address]- 8121 Jul, [facility] [place] [facility] [address] [id number] [place] [address]- 5624 Jul, [facility] [place] [facility] [address] [id number] [place] [address]- 4830 Jul, [facility] [place] [facility] [address] [id number] [place] [address]- 2746 Jul, [facility] [place] [facility] [address] [id number] [place] [address]- 7725 Jul, [facility] [place] [facility] [address] [id number] [place] [address]- 0698 Jul, [facility] [place] [facility] [address] [id number] [place] [address]- 1731 Jun, [facility] [place] [facility] [address] [id number] [place] [address]- 6602 Jun, [facility] [place] [facility] [address] [id number] [place] [address]- 7417 May, [facility] [place] [facility] [address] [id number] [place] [address]- 6339 May, [facility] [place] [facility] [address] [id number] [place] [address]- 7717 Apr, [facility] [place] [facility] [address] [id number] [place] [address]- 2921 Apr, [facility] [place] [facility] [address] [id number] [place] [address]- 7733 Apr, [facility] [place] [facility] [address] [id number] [place] [address]- 4283 Apr, [facility] [place] [facility] [address] [id number] [place] [address]- 4569 Apr, [facility] [place] [facility] [address] [id number] [place] [address]- 8393 Apr, [facility] [place] [facility] [address] [id number] [place] [address]- 5268 Apr, [facility] [place] [facility] [address] [id number] [place] [address]- 0019 Apr, [facility] [place] [facility] [address] [id number] [place] [address]- 6619 Apr, [facility] [place] [facility] [address] [id number], [place] [address]- 5388 Apr, [facility] [place] [facility] [address] [id number] [place] [address]- 3287 Apr, [facility] [place] [facility] [address] [id number] [place] [address]- 3315 Apr, [facility] [place] [facility] [address] [id number] [place] [address]- 8619 Apr, [facility] [place] [facility] [address] [id number], [place] [address]- 9407 Mar, [facility] [place] [facility] [address] [id number] [place] [address]- 0773 Mar, [facility] [place] [facility] [address] [id number], [place] [address]- 4660 Mar, [facility] [place] [facility] [address] [id number] [place] [address]- 9303 Mar, [facility] [place] [facility] [address] [id number] [place] [address]- 3618 Feb, [facility] [place] [facility] [address] [id number] [place] [address]- 0164 Feb, [facility] [place] [facility] [address] [id number] [place] [address]- 5766 Feb, [facility] [place] [facility] [address] [id number], [place] [address]- 1297 Feb, [facility] [place] [facility] [address] [id number], [place] [address]- 2034 Jan, [facility] [place] [facility] [address] [id number], [place] [address]- 4572 14 Jan, 2013 [facility] [place] [facility] [address] [id number], [place] [address]- 6195 Jan, [facility] [place] [facility] [address] [id number], [place] [address]- 4820 Jan, [facility] [place] [facility] [address] [id number], [place] [address]- 8333 Jan, [facility] [place] [facility] [address] [id number], [place] [address]- 5147 Jan, [facility] [place] [facility] [address] [id number], [place] [address]- 8096 Jan, [facility] [place] [facility] [address] [id number], [place] [address]- 8037 Jan, [facility] [place] [facility] [address] [id number] [place] [address]- 9901 Jan, [facility] [address] [id number] [place] [address]- 4721 26 Dec, 2012 [facility] [place] [facility] [address] [id number] [place] [address]- 0716 16 Dec, 2012 [facility] [address] [id number] [place] [address]- 8386 16 Dec, 2012 [facility] [address] [id number] [place] [address]- 3355 13 Dec, 2012 [facility] [address] [id number] [place] [address]- 0190 Nov, [facility] [address] [id number] [place] [address]- 9883 Nov, [facility] [address] [id number] [place] [address]- 2335 Nov, [facility] [address] [id number] [place] [address]- 4494 Nov, [facility] [address] [id number] [place] [address]- 9878 Oct, [facility] [address] [id number] [place] [address]- 8738 Sep, [facility] [address] [id number] [place] [address]- 5043 August, [facility] [address] [id number] [place] [address]- 1828 August, [facility] [place] [facility] [address] [id number] [place] [address]- 2235 August, [facility] [place] [facility] [address] [id number] [place] [address]- 9676 August, [facility] [place] [facility] [address] [id number] [place] [address]- 0331 August, [facility] [address] [id number] [place] [address]- 5070 August, [facility] [address] [id number] [place] [address]- 6006 August, [facility] [address] [id number] [place] [address]- 4908 August, [facility] [address] [id number] [place] [address]- 6642 August, [facility] [address] [id number] [place] [address]- 8955 August, [facility] [address] [id number] [place] [address]- 2142 August, [facility] [address] [id number] [place] [address]- 1626 August, [facility] [address] [id number] [place] [address]- 8175 Jul, [facility] [address] [id number] [place] [address]- 0819 Jul, [facility] [address] [id number] [place] [address]- 0000 Jul, [facility] [address] [id number] [place] [address]- 6373 Jul, [facility] [place] [facility] [address] [id number], [place] [address]- 5439 Jul, [facility] [place] [facility] [address] [id number] [place] [address]- 1046 Jul, [facility] [place] [facility] [address] [id number] [place] [address]- 8491 Jul, [facility] [place] [facility] [address] [id number] [place] [address]- 2594 Jul, [facility] [place] [facility] [address] [id number] [place] [address] 2546 Jul, [facility] [address] [id number] [place] [address]- 4986 Jul, [facility] [place] [facility] [address] [facility] [id number] [place] [address]- 7376 Jul, [facility] [address] [facility] [id number] [place] [address]- 1656 Jun, [facility] [place] [facility] [address] [id number] [place] [address]- 7656 Jun, [facility] [address] [id number] [place] [address]- 0842 Jun, [facility] [place] [facility] [address] [facility] [id number] [place] [address]- 2546 Jun, [facility] [address] [id number] [place] [address]- 0782 May, [facility] [place] [facility] [address] [id number] [place] [address]- 1850 14 May, 2012 [facility] [place] [facility] [id number] [place] [address]- 3056 05 May, 2012 [facility] [address] [facility] [id number] [place] [address]- 3886 May, [facility] [place] [facility] [id number] [place] [place] [address]- 2546 May, [facility] [place] [facility] [address] [facility] [id number] [place] [address]- 2546 May, [facility] [place] [facility] [address] [id number] [place] [address]- 2546 Apr, [facility] [place] [facility] [address] [facility] [id number] [place] [address]- 2546 Apr, [facility] [place] [facility] [address] [facility] [id number] [place] [address]- 1966 Apr, [facility] [place] [facility] [address] [id number] [place] [address]- 6008 Apr, [facility] [place] [facility] [address] [id number] [place] [address]- 0884 Mar, [facility] [place] [facility] [address] [id number] [place] 5062 Mar, [facility] [place] [facility] [address] [id number] [place] [address]- 2194 Mar, [facility] [place] [facility] [address] [id number] [place] [address]- 1608 Mar, [facility] [place] [facility] [address] [id number] [place] [address]- 7511 Mar, [facility] [place] [facility] [address] [id number] [place] [address]- 0168 Mar, [facility] [place] [facility] [address] [id number] [place] [address]- 3873 Mar, [facility] [place] [facility] [address] [id number] [place] [address]- 0185 Feb, [facility] [place] [facility] [address] [id number], [place] [address]- 8848 Feb, [facility] [place] [facility] [address] [id number], [place] [address]- 7600 Feb, [facility] [place] [facility] [address] [id number], [place] [address]- 4090 Feb, [facility] [place] [facility] [address] [id number] [place] [address] Jan, [facility] [place] [facility] [address] [id number], [place] [address] Jan, [facility] [place] [facility] [address] [id number], [place] [address] Jan, [facility] [place] [facility] [address] [id number], [place] [address] Jan, [facility] [address] [id number] [place] [address] Jan, [facility] [place] [facility] [address] [id number] [place] [address] Jan, [facility] [place] [facility] [address] [id number] [place] [address] Dec, [facility] [place] [facility] [address] [id number] [place] [address] Dec, [facility] [place] [facility] [address] [id number] [place] [address] Nov, [facility] [place] [facility] [address] [id number] [place] [address] Sep, [facility] [id number] [place] [address] August, [facility] [place] [facility] [address] [id number] [place] [address] August, [facility] [address] [id number] [place] [address] August, [facility] [place] [facility] [address] [id number] [place] [place] [address] August, [facility] [place] [facility] [address] [id number] [place] [address] August, [facility] [place] [facility] [address] [id number], [place] [address] Jun, [facility] [place] [facility] [address] [id number] [place] [address] Jun, [facility] [place] [facility] [address] [facility] [id number] [place] [address] Apr, [facility] [place] [facility] [address] [id number] [place] [address] Apr, [facility] [place] [facility] [address] [id number] [place] [address] 23 Mar, 2011 [facility] [place] [facility] [address] [id number] [place] [address] Feb, [facility] [place] [facility] [address] [id number] [place] [address]- [address] 14 Feb, 2011 [facility] [place] [facility] [address] [id number] [place] [address]- [address] 14 Feb, 2011 [facility] [place] [facility] [address] [id number] [place] [address] 17 Jan, 2011 [facility] [place] [facility] [address] [id number] [place] [address] 15 Jan, 2011 [facility] [place] [facility] [address] [id number] [place] [address] 15 Jan, 2011 [facility] [place] [facility] [address] [id number] [place] [address] 14 Jan, 2011 [facility] [place] [facility] [address] [id number] [place] [address] 15 May, 2010 [facility] [place] [facility] [address] [id number] [place] [address] Mar, [facility] [place] [facility] [address] [id number] [place] [address] Oct, [facility] [place] [facility] [address] [id number] [place] [address] Sep, [facility] [place] [facility] [address] [id number] [place] [address] Mar, [facility] [place] [facility] [address] [id number] [place] [address] Jan, [facility] [place] [facility] [address] [id number] [place] [address] Jan, [facility] [place] [facility] [address] [id number] [place] [address] May, IMMUNIZATIONS No Known Immunizations SOCIAL HISTORY Never Assessed REASON FOR VISIT med/lab order PLAN OF CARE VITAL SIGNS MEDICATIONS Medication Instructions Dosage Frequency Start Date End Date Duration Status Pravastatin Sodium 40 MG Orally Once a day TAKE ONE TABLET BY MOUTH AT BEDTIME 24h 30 Active RESULTS No Results PROCEDURES No Known procedures INSTRUCTIONS MEDICATIONS ADMINISTERED No Known Medications MEDICAL (GENERAL) HISTORY Type Description Date Medical History hypertension Medical History Colposcopy with loop electrode excision of the cervix was performed 06/2012, mild squamous atypia (no definite dyplasia). Performed at [facility]. Medical History Acute suppurative otitis [...]
--- OUTSIDE RECORDS SUMMARY | 2018-06-10 04:41 | XMS REPORT ---
Author Author BETI STAUFFER [facility] Address [address] [place] [address] Care Team Providers Care Critical Care Registered Nurse Name Role Phone BETI STAUFFER Unavailable PROBLEMS Type Condition ICD9-CM Code [id number] Code Onset Dates Condition Status SNOMED Code Problem Hematuria, unspecified type R31.9 Active 75823288 Problem Anxiety F41.9 Active 72821881 Problem Abnormal renal ultrasound R93.429 Active 52205552231820608 Problem Abnormal glucose R73.09 Active 358856018 Problem 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 Active 971998159 Problem Hypokalemia E87.6 Active 65432218 Problem Neck pain M54.2 Active 56036429 Problem 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 Active 248340053159 Problem Mixed hyperlipidemia E78.2 Active 92262155 Problem Essential hypertension I10 Active 63328567 ALLERGIES No Information ENCOUNTERS Encounter Location Date Diagnosis [place] [address] [address] 08 Feb, 2018 [place] [address] [address]- [address]266 13 Dec, 2017 Lateral epicondylitis, right elbow M77.11 [place] [address] [address]- 1963 11 Dec, 2017 Allergic rhinitis due to pollen, unspecified seasonality J30.1 and Allergic conjunctivitis of both eyes H10.13 [place] [address] [address]- 1951 10 Dec, 2017 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 [place] [address] [place] [id number] [place] [address] 45076- 6324 06 Dec, 2017 Mixed hyperlipidemia E78.2 [place] [address] [place] [id number] [place] [address] 67631- 0915 Dec, Abnormal glucose R73.09 ; Abnormal renal ultrasound R93.429 ; Dysuria R30.0 ; Cystitis without hematuria N30.90 ; Hypokalemia E87.6 ; Mixed hyperlipidemia E78.2 and Hematuria, unspecified type R31.9 [place] [address] [place] [id number] [place] [address] 69576- 1275 Nov, Hypokalemia E87.6 ; Mixed hyperlipidemia E78.2 and Hematuria , unspecified type R31.9 [place] [address] [place] [id number] [place] [address] 54401- 8917 Nov, [place] [address] 41548- 1844 Nov, Hypokalemia E87.6 [place] [address] 06926- 3825 Nov, [place] [address] [place] [id number] [place] [address] 45293- 8892 Nov, Abnormal renal ultrasound R93.429 [place] [address] 53423- 5883 Nov, Abnormal renal ultrasound R93.429 [place] [address] [place] [id number] [place] [address] 99770- 6274 Nov, Hematuria, unspecified type R31.9 and 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 [place] [address] [place] [id number] [place] [address] 70817- 4059 Nov, Dysuria R30.0 [place] [address] 33782- 8068 Oct, Lateral epicondylitis, right elbow M77.11 [place] [address] [place] [id number] [place] [address] 55936- 5090 Oct, 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 ; Visit for TB skin test Z11.1 and Essential hypertension I10 [place] [address] [place] [id number] [place] [address] 60090- 3957 16 Oct, 2017 [place] [address] [place] [id number] [place] [address] 77487- 6636 Oct, 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 [place] [address] 52064- 5531 10 Oct, 2017 Visit for TB skin test Z11.1 [place] [address] [place] [id number] [place] [address] 83165- 3226 05 Oct, 2017 Cystitis without hematuria N30.90 [place] [address] [place] [id number] [place] [address] 57197- 2703 28 Sep, 2017 Screening breast examination Z12.39 [place] [address] 24918- 8543 26 Sep, 2017 Dysuria R30.0 and Cystitis without hematuria N30.90 [place] [address] [place] [id number] [place] [address] 27437- 2487 14 Sep, 2017 Essential hypertension I10 and 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 [place] [address] [place] [id number] [place] [address] 22720- 2003 Sep, Abnormal glucose R73.09 [place] [address] 79435- 9556 August, Lateral epicondylitis, right elbow M77.11 [place] [address] [place] [id number] [place] [address] 04757- 4920 August, Screen for STD (sexually transmitted disease) Z11.3 [place] [address] [place] [id number] [place] [address] 03631- 6198 August, Neuroforaminal stenosis of spine M99.89 ; Mixed hyperlipidemia E78.2 ; Elevated fasting glucose R73.01 ; Screening mammogram, encounter for Z12.31 and Encounter for well woman exam without gynecological exam Z00.00 [facility] [address] [place] [id number] [place] [address] 89799- 1367 August, Neuroforaminal stenosis of spine M99.89 [facility] [address] [place] [id number] [place] [address] 61363- 9120 August, Essential hypertension I10 ; Hypokalemia E87.6 and Mixed hyperlipidemia E78.2 [place] [address] 21256- 4010 Jul, [place] [address] [place] [id number] [place] [address] 82801- 3943 Jul, Neuroforaminal stenosis of spine M99.89 [place] [address] [place] [id number] [place] [address] 29339- 6767 Jul, Lateral epicondylitis, right elbow M77.11 [place] [address] 05204- 5188 Jul, [place] [address] [place] [id number] [place] [address] 04167- 4306 Jun, High ankle sprain of right lower extremity, initial encounter S93.431A [place] [address] [place] [id number] [place] [address] 62382- 9388 Jun, Essential hypertension I10 [place] [address] [place] [id number] [place] [address] 61937- 3457 Jun, [facility] [address] [place] [id number] [place] [address] 80063- 4393 Jun, [place] [address] [place] [id number] [place] [address] 85727- 5424 Jun, Neuroforaminal stenosis of spine M99.89 [facility] [address] [place] [id number] [place] [address] 17579- 5143 Jun, Pain of right upper extremity M79.601 and Essential hypertension I10 [place] [address] [place] [address] [place] [address] 42347- 6994 Jun, [place] [address] [place] [id number] [place] [address] 43267- 0432 Jun, Dysuria R30.0 ; Acute cystitis with hematuria N30.01 and Screen for STD (sexually transmitted disease) Z11.3 [place] [address] [place] [id number] [place] [address] 19622- 3251 May, 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 [place] [address] [place] [id number] [place] [address] 70228- 3522 May, Essential hypertension I10 [place] [id number] [place] [address] 56797- 2314 May, Neuroforaminal stenosis of spine M99.89 [place] [id number] [place] [address] 97989- 1792 Apr, Allergic reaction, initial encounter T78.40XA [place] [address] [place] [id number] [place] [address] 58060- 4353 Apr, Low back pain, unspecified back pain laterality, unspecified chronicity, with sciatica presence unspecified M54.5 ; Acute cystitis with hematuria N30.01 ; Neuroforaminal stenosis of spine M99.89 ; Bilateral acute serous otitis media, recurrence not specified H65.03 ; Mixed hyperlipidemia E78.2 ; Essential hypertension I10 ; Immunization counseling Z71.89 and Encounter for immunization Z23 [place] [address] [place] [id number] [place] [address] 83025- 7987 Apr, Neck pain M54.2 [place] [id number] [place] [address] 28292- 1634 Mar, Neuroforaminal stenosis of spine M99.89 [place] [address] [place] [id number] [place] [address] 36600- 2623 Mar, Pharyngitis due to other organism J02.8 [place] [address] [place] [id number] [place] [address] 63671- 5106 Feb, Neuroforaminal stenosis of spine M99.89 [facility] [address] [place] [id number] [place] [address] 22845- 1636 Feb, UTI (urinary tract infection) N39.0 [facility] [address] [place] [id number] [place] [address] 08571- 1312 Feb, Recent urinary tract infection Z87.440 ; Neuroforaminal stenosis of spine M99.89 ; Neck pain M54.2 ; 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 and Recurrent UTI N39.0 [facility] [address] 77775- 3154 Feb, [facility] [address] [place] [id number] [place] [address] 38520- 4607 Jan, Neuroforaminal stenosis of spine M99.89 [facility] [address] 24712- 9117 Dec, Neuroforaminal stenosis of spine M99.89 [facility] [address] [place] [id number] [place] [address] 29630- 3088 Dec, Acute seasonal allergic rhinitis due to pollen J30.1 [place] [address] [place] [id number] [place] [address] 43575- 3057 Dec, [facility] [address] 96806- 3303 Dec, Acute seasonal allergic rhinitis, unspecified trigger J30.2 ; Allergic conjunctivitis of both eyes H10.13 and Dysfunction of both eustachian tubes H69.83 [facility] [address] [place] [id number] [place] [address] 15794- 2572 Dec, [facility] [address] [place] [id number] [place] [address] 88422- 8598 06 Dec, 2016 Nevus D22.9 [facility] [address] 91192- 5511 Nov, 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 and Neuroforaminal stenosis of spine M99.89 [facility] [address] [place] [id number] [place] [address] 50064- 8638 Nov, Neuroforaminal stenosis of spine M99.89 ; Essential hypertension I10 ; Mixed hyperlipidemia E78.2 ; Hypokalemia E87.6 ; Neck pain M54.2 and Nevus D22.9 [facility] [address] [place] [id number] [place] [address] 50608- 2730 Oct, Neuroforaminal stenosis of spine M99.89 [facility] [address] [place] [id number] [place] [address] 18059- 0945 Sep, Neuroforaminal stenosis of spine M99.89 [facility] [address] [place] [id number] [place] [address] 81720- 8474 Sep, [facility] [address] [place] [id number] [place] [address] 48145- 3970 August, [facility] [address] [place] [id number] [place] [address] 26029- 6935 August, Neck pain M54.2 and Neuroforaminal stenosis of spine M99.89 [facility] [address] [place] [id number] [place] [address] 45418- 7325 August, Routine gynecological examination Z01.419 and Screening breast examination Z12.39 [facility] [address] [place] [address] 50211- 0439 Jul, [facility] [address] [place] [id number] [place] [address] 40361- 4959 Jul, [facility] [address] [place] [id number] [place] [address] 64118- 4888 Jul, Neuroforaminal stenosis of spine M99.89 [facility] [address] [place] [id number] [place] [address] 04390- 3238 Jul, [place] [address] [place] [address] 27581- 2965 Jul, 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 [place] [address] [place] [id number] [place] [address] 61601- 8959 Jul, [place] [address] [place] [id number] [place] [address] 90698- 2819 Jul, [place] [address] [place] [id number] [place] [address] 51358- 3550 Jun, Neuroforaminal stenosis of spine M99.89 [place] [address] [place] [id number] [place] [address] 67038- 5556 Jun, Uterine leiomyoma, unspecified location D25.9 and Allergic reaction caused by a drug, initial encounter T78.40XA [place] [address] [place] [id number] [place] [address] 34533- 3969 Jun, [place] [address] [place] [id number] [place] [address] 54803- 3349 May, UTI symptoms R39.9 and Pain of right sacroiliac joint M53.3 [place] [address] [place] [id number] [place] [address] 33384- 9575 May, Neuroforaminal stenosis of spine M99.89 [place] [address] [place] [id number] [place] [address] 86296- 7751 May, [place] [address] [place] [id number] [place] [address] 82439- 0627 May, Acute mucoid otitis media of left ear H65.112 and Acute non- recurrent maxillary sinusitis J01.00 [place] [address] [place] [id number] [place] [address] 44963- 5145 May, Acute bacterial conjunctivitis of both eyes H10.33 ; Left arm pain M79.602 and Hypokalemia E87.6 [place] [address] [place] [address] [place] [address]- 4132 Apr, [place] [address] [place] [id number] [place] [address] 89216- 9423 Apr, Neuroforaminal stenosis of spine M99.89 ; Neck pain M54.2 ; 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 ; Mixed hyperlipidemia E78.2 ; Essential hypertension I10 and Hypokalemia E87.6 [place] [address] 42260- 4467 Mar, Oral candidiasis B37.0 ; Neuroforaminal stenosis of spine M99.89 ; Neck pain M54.2 and 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 [place] [address] [place] [id number] [place] [address] 98985- 0010 Feb, [place] [address] [place] [id number] [place] [address] 25429- 3504 Feb, [place] [address] [place] [id number] [place] [address] 97337- 4717 Feb, UTI (urinary tract infection) N39.0 [place] [address] [place] [id number] [place] [address] 62857- 8695 Feb, Dysuria R30.0 [place] [address] [place] [id number] [place] [address] 99139- 0413 Feb, Dysuria R30.0 [place] [address] [place] [id number] [place] [address] 47947- 2178 Feb, Neuroforaminal stenosis of spine M99.89 ; Neck pain M54.2 ; Essential hypertension I10 ; 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 ; Dysuria R30.0 ; Abnormal MRI, shoulder R93.8 and Acute cystitis without hematuria N30.00 [facility] [address] [place] [address] 49372- 3051 Jan, [facility] [address] [place] [id number] [place] [address] 97503- 8102 Jan, [facility] [address] [address]- 3062 Jan, [facility] [address] [place] [id number] [place] [address] 10888- 9669 Jan, Abnormal MRI R93.8 [facility] [address] [place] [id number] [place] [address] 41528- 0841 29 Dec, 2015 [facility] [address] [place] [id number] [place] [address] 37511 -2834 15 Dec, 2015 Acute pain of left shoulder M25.512 [facility] [address] [place] [id number] [place] [address] 99950- 3494 09 Dec, 2015 [facility] [address] [place] [id number] [place] [address] 12534- 4309 08 Dec, 2015 [facility] [address] [place] [id number] [place] [address] 00290- 0362 07 Dec, 2015 Acute pain of left shoulder M25.512 [facility] [address] [place] [id number] [place] [address] 38993- 8452 Nov, [facility] [address] [place] [id number] [place] [address] 35140- 4242 16 Nov, 2015 Neuroforaminal stenosis of spine M99.89 ; Neck pain M54.2 ; Abnormal mammogram R92.8 ; Essential hypertension I10 and 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 [facility] [address] [place] [id number] [place] [address] 64397- 6814 Nov, [facility] [address] [place] [id number] [place] [address] 29972- 5387 Oct, Acute stress disorder F43.0 [facility] [address] [place] [id number] [place] [address] 90803- 8377 Oct, [facility] [address] [place] [id number] [place] [address] 16323- 8958 Oct, [facility] [address] [address]- 3831 Oct, [facility] [address] [place] [id number] [place] [address] 27461- 4267 Sep, [facility] [address] [place] [address] 41338- 6320 August, [facility] [address] [place] [id number] [place] [address] 31342- 1698 Jul, Neuroforaminal stenosis of spine M99.89 ; Neck pain M54.2 ; Abnormal mammogram R92.8 and Essential hypertension I10 [facility] [address] [place] [id number] [place] [address] 36894- 5135 Jul, [facility] [address] [place] [id number] [place] [address] 52105- 6396 Jul, [facility] [address] [place] [id number] [place] [address] 39966- 1050 Jul, Abnormal mammogram R92.8 [facility] [address] [place] [address] 30095- 4098 Jul, [facility] [address] [place] [id number] [place] [address] 03564- 8655 Jul, UTI (urinary tract infection) N39.0 [facility] [address] [place] [address] 23915- 8289 Jul, Dysuria R30.0 [facility] [address] [place] [address] 80271- 8449 Jun, [facility] [address] [place] [id number] [place] [address] 07727- 3467 Jun, [facility] [address] [place] [id number] [place] [address] 82361- 1103 Jun, Hypokalemia E87.6 and Hematuria R31.9 [facility] [address] [place] [id number] [place] [address] 06922- 0112 Jun, Hypokalemia E87.6 [place] [address] [place] [id number] [place] [address] 14679- 9968 Jun, [place] [address] [place] [id number] [place] [address] 13541- 3080 Jun, Hypokalemia E87.6 [place] [address] [place] [id number] [place] [address] 12209- 3835 Jun, Hypokalemia E87.6 [place] [address] [place] [id number] [place] [address] 13795- 8442 15 Jun, 2015 Neuroforaminal stenosis of spine M99.89 ; Hypokalemia E87.6 ; Neck pain M54.2 ; Essential hypertension I10 ; Mixed hyperlipidemia E78.2 and Screening breast examination Z12.39 [place] [address] [place] [id number] [place] [address] 04098- 2323 Jun, Dysuria R30.0 ; UTI (urinary tract infection) N39.0 and Hematuria R31.9 [place] [address] [place] [id number] [place] [address] 65429- 1531 May, [place] [address] [place] [id number] [place] [address] 79271- 9611 May, High risk sexual behavior Z72.51 ; Hypokalemia E87.6 ; Neuroforaminal stenosis of spine M99.89 ; Neck pain M54.2 ; Essential hypertension I10 ; Mixed hyperlipidemia E78.2 ; STD exposure Z20.2 and Concern about STD in female without diagnosis Z71.1 [place] [address] [place] [id number] [place] [address] 12741- 4056 16 May, 2015 Neuroforaminal stenosis of spine M99.89 ; Neck pain M54.2 ; Hypokalemia E87.6 ; Essential hypertension I10 and Mixed hyperlipidemia E78.2 [place] [address] [place] [id number] [place] [address] 84729- 4943 May, [facility] [address] [place] [address] 26878 -4833 08 May, 2015 High risk sexual behavior Z72.51 ; STD exposure Z20.2 and Concern about STD in female without diagnosis Z71.1 [facility] [address] [place] [address] 58614- 1173 05 May, 2015 [facility] [address] 32376- 7345 Apr, Neuroforaminal stenosis of spine M99.89 ; Mixed hyperlipidemia E78.2 ; Essential hypertension I10 and Hypokalemia E87.6 [place] [address] [place] [id number] [place] [address] 00619- 7383 Mar, [facility] [address] [id number] [place] [address] 96868- 7397 Mar, Hypokalemia E87.6 [place] [address] [place] [id number] [place] [address] 20340- 0458 Mar, Neuroforaminal stenosis of spine M99.89 ; Mixed hyperlipidemia E78.2 ; Neck pain M54.2 ; Essential hypertension I10 ; Abnormal fasting glucose R73.09 ; Hypokalemia E87.6 and Constipation K59.00 [place] [address] [place] [id number] [place] [address] 90064- 2437 Feb, Neuroforaminal stenosis of spine M99.89 ; Mixed hyperlipidemia E78.2 ; Neck pain M54.2 ; Essential hypertension I10 ; Abnormal fasting glucose R73.09 ; Hypokalemia E87.6 and Constipation K59.00 [place] [address] [place] [id number] [place] [address] 34240- 8500 Feb, Elevated fasting blood sugar R73.01 [place] [address] [place] [address] 64803- 0465 Feb, Elevated fasting blood sugar R73.01 [place] [address] [place] [id number] [place] [address] 49094- 0107 Feb, Hair loss L65.9 [place] [address] [place] [id number] [place] [address] 34158- 6829 Feb, Sinusitis J32.9 ; Essential hypertension I10 and Hair loss L65.9 [place] [address] [place] [id number] [place] [address] 26129- 0179 Jan, [place] [address] 37503- 9457 Jan, Essential hypertension I10 ; Neuroforaminal stenosis of spine M99.89 ; Neck pain M54.2 ; Mixed hyperlipidemia E78.2 and Anxiety F41.9 [place] [address] [place] [id number] [place] [address] 01082- 3443 Jan, [place] [address] 03606- 6407 Jan, Mixed hyperlipidemia E78.2 ; Essential (primary) hypertension I10 ; Strain of muscle, fascia and tendon at neck level, subsequent encounter S16.1XXD and Tension-type headache, unspecified, not intractable G44.209 [place] [address] [place] [address] [id number] [place] [address] 10961- 7305 Dec, Lumbar back pain 724.2 and Neuroforaminal stenosis of spine 724.00 [facility] [address] [id number] [place] [address] 21214- [address] Nov, [place] [address] [address]- [address] Nov, Lumbar back pain 724.2 and Neuroforaminal stenosis of spine 724.00 [place] [address] [address]- [address] Nov, Edema 782.3 ; Lumbar back pain 724.2 ; Essential hypertension, benign 401.1 ; Hyperlipemia 272.4 ; Neuroforaminal stenosis of spine 724.00 and Post-concussion headache 339.20 [place] [id number] [address] Nov, [facility] [id number] [place] [phone]- [phone] Nov, [facility] [id number] [place] [address] 43027- 7363 Oct, Essential hypertension, benign 401.1 [facility] [id number] [place] [address] 51894- 7950 Oct, Edema 782.3 ; Lumbar back pain 724.2 ; Essential hypertension, benign 401.1 ; Hyperlipemia 272.4 ; Neuroforaminal stenosis of spine 724.00 and Post-concussion headache 339.20 [facility] [id number] [place] [address] 30463- 5384 Oct, [facility] [id number] [place] [address] 26868- 6161 Oct, Edema 782.3 [facility] [id number] [place] [address] 56085- 0268 Oct, Lumbar back pain 724.2 [facility] [id number] [place] [address] 10244- 7257 Oct, Cervicalgia 723.1 ; Lumbar back pain 724.2 and High risk medication use V58.69 [facility] [address] [id number] [place] [address]- 7125 Sep, [facility] [id number] [place] [address] 81890- 6483 Sep, Lumbar strain 847.2 [facility] [id number] [place] [address]40- 2776 August, Edema 782.3 and Eustachian tube dysfunction 381.81 [facility] [id number] [address] August, [facility] [id number] [address] 1851 August, Eustachian tube dysfunction 381.81 [facility] [id number] [place] [address], [place] [address]- 9471 Jul, Otalgia 388.70 and Otitis media 382.9 [facility] [id number] [place] [address] 1930 Jul, [facility] [id number] [place] [address] 46585- 3067 Jul, [facility] [id number] [place] [address], [place] [address]- 7326 Jul, [facility] [address] [id number] [address] 1874 Jul, [facility] [id number] [place] [address] 69002- 8211 Jul, [facility] [id number] [address]- 8968 Jun, [facility] [id number], [place] [address]- 7524 Jun, [facility] [id number], [place] [address]- 5628 Jun, [facility] [id number], [place] [address]- 3754 May, [facility] [id number] [address]- 4074 May, [facility] [id number] 2939 May, [facility] [id number] 0149 May, [facility] [id number] 7[address] May, [facility] [place] [facility] [address] [id number] [place] [address]- 1097 May, [facility] [place] [facility] [address] [id number] [place] [address]- 3405 May, [facility] [place] [facility] [address] [id number] [place] [address]- 8270 May, [facility] [place] [facility] [address] [id number] [place] [address]- 3996 May, [facility] [place] [facility] [address] [id number] [place] [address]- 6317 May, [facility] [place] [facility] [address] [id number] [place] [address]- 7064 Apr, [facility] [place] [facility] [address] [id number] [place] [address]- 7657 Apr, [facility] [place] [facility] [address] [id number] [place] [address]- 1125 Apr, [facility] [place] [facility] [address] [id number] [place] [address]- 2065 Apr, [facility] [place] [facility] [address] [id number] [place] [address]- 1159 Apr, [facility] [place] [facility] [address] [id number] [place] [address]- 8301 Apr, [facility] [place] [facility] [address] [id number] [place] [address]- 3167 Apr, [facility] [place] [facility] [address] [id number] [place] [address]- 7654 Apr, [facility] [place] [facility] [address] [id number] [place] [address]- 7437 Apr, [facility] [place] [facility] [address] [id number] [place] [address]- 9526 Apr, [facility] [place] [facility] [address] [id number], [place] [address]- 9516 Apr, [facility] [place] [facility] [address] [id number] [place] [address]- 8252 Apr, [facility] [place] [facility] [address] [id number] [place] [address]- 0342 Apr, [facility] [place] [facility] [address] [facility] [id number] [place] [address]- 2418 Apr, [facility] [place] [facility] [address] [id number] [place] [address]- 8047 Apr, [facility] [place] [facility] [address] [facility] [id number] [place] [address]- 8715 Mar, [facility] [place] [facility] [address] [facility] [id number] [place] [address]- 8406 Mar, [facility] [place] [facility] [address] [facility] [id number], [place] [address]- 0414 Mar, [facility] [place] [facility] [address] [facility] [id number] [place] [address]- 4488 Mar, [facility] [place] [facility] [address] [facility] [id number] [place] [address]- 0358 Feb, [facility] [place] [facility] [address] [facility] [id number], [place] [address]- 8096 Feb, [facility] [place] [facility] [address] [facility] [id number][place] [address]- 3623 Feb, [facility] [place] [facility] [address] [facility] [id number], [place] [address]- 6040 Feb, [facility] [place] [facility] [address] [id number], [place] [address]- 2812 Jan, [facility] [place] [facility] [address] [facility] [id number] [address]- 3980 Jan, [facility] [place] [facility] [address] [facility] [id number], [place] [address]- 5316 Jan, [facility] [place] [facility] [address] [id number] [place] [address]- 0170 Jan, [facility] [place] [facility] [address] [id number] [place] [address]- 0562 Jan, [facility] [place] [facility] [address] [id number] [place] [address]- 2346 Jan, [facility] [place] [facility] [address] [id number] [place] [address]- 3254 Jan, [facility] [place] [facility] [address] [id number] [place] [address]- 5921 Jan, [facility] [place] [facility] [address] [id number] [place] [address]- 8090 Dec, [facility] [place] [facility] [address] [id number] [place] [address]- 0471 Dec, [facility] [place] [facility] [address] [id number] [place] [address]- 5423 Dec, [facility] [place] [facility] [address] [id number] [place] [address]- 6990 Dec, [facility] [place] [facility] [address] [id number] [place] [address]- 9031 Oct, [facility] [place] [facility] [address] [id number] [place] [address]- 7431 Oct, [facility] [place] [facility] [address] [id number] [place] [address]- 2150 Oct, [facility] [place] [facility] [address] [id number] [place] [address]- 9349 Oct, [facility] [place] [facility] [address] [id number] [place] [address]- 4972 Oct, [facility] [place] [facility] [address] [id number] [place] [address]- 6076 Oct, [facility] [place] [facility] [address] [id number] [place] [address]- 9215 Oct, [facility] [place] [facility] [address] [id number] [place] [address]- 3935 Oct, [facility] [place] [facility] [address] [id number] [place] [address]- 1847 Sep, [facility] [place] [facility] [address] [id number] [place] [address]- 8020 Sep, [facility] [place] [facility] [address] [id number] [place] [address]- 5806 Sep, [facility] [place] [facility] [address] [id number] [place] [address]- 6766 Sep, [facility] [place] [facility] [address] [id number] [place] [address]- 9159 Sep, [facility] [place] [facility] [address] [id number] [place] [address]- 6809 Sep, [facility] [place] [facility] [address] [id number] [place] [address]- 8656 Sep, [facility] [place] [facility] [address] [id number] [place] [address]- 3760 Sep, [facility] [place] [facility] [address] [id number] [place] [address]- 5499 Sep, [facility] [place] [facility] [address] [id number] [place] [address]- 3761 Sep, [facility] [place] [facility] [address] [id number], [place] [address]- 3347 August, [facility] [place] [facility] [address] [id number] [place] [address]- 9756 August, [facility] [place] [facility] [address] [id number] [place] [address]- 8021 August, [facility] [place] [facility] [address] [id number] [place] [address]- 3705 August, [facility] [place] [facility] [address] [id number] [place] [address]- 0410 August, [facility] [place] [facility] [address] [id number] [place] [address]- 8808 August, [facility] [place] [facility] [address] [id number] [place] [address]- 3874 August, [facility] [place] [facility] [address] [id number] [place] [address]- 6994 August, [facility] [place] [facility] [address] [id number] [place] [address]- 6005 August, [facility] [place] [facility] [address] [id number] [place] [address]- 7346 August, [facility] [place] [facility] [address] [id number] [place] [address]- 5017 August, [facility] [place] [facility] [address] [id number] [place] [address]- 2238 August, [facility] [place] [facility] [address] [id number] [place] [address]- 7682 Jul, [facility] [place] [facility] [address] [id number] [place] [address]- 5313 Jul, [facility] [place] [facility] [address] [id number] [place] [address]- 0217 Jul, [facility] [place] [facility] [address] [id number] [place] [address]- 6143 Jul, [facility] [place] [facility] [address] [id number] [place] [address]- 7756 Jul, [facility] [place] [facility] [address] [id number] [place] [address]- 2848 Jul, [facility] [place] [facility] [address] [id number] [place] [address]- 5681 Jun, [facility] [place] [facility] [address] [id number] [place] [address]- 4298 Jun, [facility] [place] [facility] [address] [id number] [place] [address]- 0657 May, [facility] [place] [facility] [address] [id number] [place] [address]- 6215 May, [facility] [place] [facility] [address] [id number] [place] [address]- 0727 Apr, [facility] [place] [facility] [address] [id number] [place] [address]- 8264 Apr, [facility] [place] [facility] [address] [id number] [place] [address]- 2340 Apr, [facility] [place] [facility] [address] [id number] [place] [address]- 8207 Apr, [facility] [place] [facility] [address] [id number] [place] [address]- 5900 Apr, [facility] [place] [facility] [address] [id number] [place] [address]- 3713 Apr, [facility] [place] [facility] [address] [id number] [place] [address]- 2667 Apr, [facility] [place] [facility] [address] [id number] [place] [address]- 3084 Apr, [facility] [place] [facility] [address] [id number] [place] [address]- 3709 Apr, [facility] [place] [facility] [address] [id number], [place] [address]- 3596 Apr, [facility] [place] [facility] [address] [id number] [place] [address]- 7020 Apr, [facility] [place] [facility] [address] [id number] [place] [address]- 6541 Apr, [facility] [place] [facility] [address] [id number] [place] [address]- 8977 Apr, [facility] [place] [facility] [address] [id number], [place] [address]- 5206 Mar, [facility] [place] [facility] [address] [id number] [place] [address]- 3173 Mar, [facility] [place] [facility] [address] [id number], [place] [address]- 3767 Mar, [facility] [place] [facility] [address] [id number] [place] [address]- 6886 Mar, [facility] [place] [facility] [address] [id number] [place] [address]- 2067 Feb, [facility] [place] [facility] [address] [id number] [place] [address]- 7777 Feb, [facility] [place] [facility] [address] [id number] [place] [address]- 3094 Feb, [facility] [place] [facility] [address] [id number], [place] [address]- 4810 Feb, [facility] [place] [facility] [address] [id number], [place] [address]- 7116 Jan, [facility] [place] [facility] [address] [id number], [place] [address]- 4284 14 Jan, 2013 [facility] [place] [facility] [address] [id number], [place] [address]- 1026 Jan, [facility] [place] [facility] [address] [id number], [place] [address]- 7841 Jan, [facility] [place] [facility] [address] [id number], [place] [address]- 5165 Jan, [facility] [place] [facility] [address] [id number], [place] [address]- 9651 Jan, [facility] [place] [facility] [address] [id number], [place] [address]- 2824 Jan, [facility] [place] [facility] [address] [id number], [place] [address]- 2675 Jan, [facility] [place] [facility] [address] [id number] [place] [address]- 9676 Jan, [facility] [address] [id number] [place] [address]- 5127 26 Dec, 2012 [facility] [place] [facility] [address] [id number] [place] [address]- 9336 16 Dec, 2012 [facility] [address] [id number] [place] [address]- 5126 16 Dec, 2012 [facility] [address] [id number] [place] [address]- 8154 13 Dec, 2012 [facility] [address] [id number] [place] [address]- 5636 Nov, [facility] [address] [id number] [place] [address]- 4070 Nov, [facility] [address] [id number] [place] [address]- 3715 Nov, [facility] [address] [id number] [place] [address]- 9904 Nov, [facility] [address] [id number] [place] [address]- 9158 Oct, [facility] [address] [id number] [place] [address]- 9410 Sep, [facility] [address] [id number] [place] [address]- 9590 August, [facility] [address] [id number] [place] [address]- 6376 August, [facility] [place] [facility] [address] [id number] [place] [address]- 4450 August, [facility] [place] [facility] [address] [id number] [place] [address]- 5926 August, [facility] [place] [facility] [address] [id number] [place] [address]- 2145 August, [facility] [address] [id number] [place] [address]- 4249 August, [facility] [address] [id number] [place] [address]- 8902 August, [facility] [address] [id number] [place] [address]- 9530 August, [facility] [address] [id number] [place] [address]- 8323 August, [facility] [address] [id number] [place] [address]- 9112 August, [facility] [address] [id number] [place] [address]- 9613 August, [facility] [address] [id number] [place] [address]- 0082 August, [facility] [address] [id number] [place] [address]- 1698 Jul, [facility] [address] [id number] [place] [address]- 8997 Jul, [facility] [address] [id number] [place] [address]- 4437 Jul, [facility] [address] [id number] [place] [address]- 9136 Jul, [facility] [place] [facility] [address] [id number], [place] [address]- 2802 Jul, [facility] [place] [facility] [address] [id number] [place] [address]- 7131 Jul, [facility] [place] [facility] [address] [id number] [place] [address]- 0596 Jul, [facility] [place] [facility] [address] [id number] [place] [address]- 4378 Jul, [facility] [place] [facility] [address] [id number] [place] [address] 2546 Jul, [facility] [address] [id number] [place] [address]- 6086 Jul, [facility] [place] [facility] [address] [facility] [id number] [place] [address]- 0466 Jul, [facility] [address] [facility] [id number] [place] [address]- 5686 Jun, [facility] [place] [facility] [address] [id number] [place] [address]- 8138 Jun, [facility] [address] [id number] [place] [address]- 9114 Jun, [facility] [place] [facility] [address] [facility] [id number] [place] [address]- 2546 Jun, [facility] [address] [id number] [place] [address]- 5530 May, [facility] [place] [facility] [address] [id number] [place] [address]- 5395 14 May, 2012 [facility] [place] [facility] [id number] [place] [address]- 8476 05 May, 2012 [facility] [address] [facility] [id number] [place] [address]- 8406 May, [facility] [place] [facility] [id number] [place] [address]- 2546 May, [facility] [place] [facility] [address] [facility] [id number] [place] [address]- 2546 May, [facility] [place] [facility] [address] [id number] [place] [address]- 2546 Apr, [facility] [place] [facility] [address] [facility] [id number] [place] [address]- 2546 Apr, [facility] [place] [facility] [address] [facility] [id number] [place] [address]- 9304 Apr, [facility] [place] [facility] [address] [id number] [place] [address]- 9767 Apr, [facility] [place] [facility] [address] [id number] [place] [address]- 8356 Mar, [facility] [place] [facility] [address] [id number] [place] 9165 Mar, [facility] [place] [facility] [address] [id number] [place] [address]- 1504 Mar, [facility] [place] [facility] [address] [id number] [place] [address]- 4454 Mar, [facility] [place] [facility] [address] [id number] [place] [address]- 5925 Mar, [facility] [place] [facility] [address] [id number] [place] [address]- 9131 Mar, [facility] [place] [facility] [address] [id number] [place] [address]- 1204 Mar, [facility] [place] [facility] [address] [id number] [place] [address]- 6200 Feb, [facility] [place] [facility] [address] [id number], [place] [address]- 3907 Feb, [facility] [place] [facility] [address] [id number], [place] [address]- 1055 Feb, [facility] [place] [facility] [address] [id number], [place] [address]- 4637 Feb, [facility] [place] [facility] [address] [id number] [place] [address]- 5015 Jan, [facility] [place] [facility] [address] [id number], [place] [address] Jan, [facility] [place] [facility] [address] [id number], [place] [address] Jan, [facility] [place] [facility] [address] [id number], [place] [address] Jan, [facility] [address] [id number] [place] [address] Jan, [facility] [place] [facility] [address] [id number] [place] [address] Jan, [facility] [place] [facility] [address] [id number] [place] [address] Dec, [facility] [place] [facility] [address] [id number] [place] [address] Dec, [facility] [place] [facility] [address] [id number] [place] [address] Nov, [facility] [place] [facility] [address] [id number] [place] [address] Sep, [facility] [id number] [place] [address] August, [facility] [place] [facility] [address] [id number] [place] [address] August, [facility] [address] [id number] [place] [address] August, [facility] [place] [facility] [address] [id number] [place] [address] August, [facility] [place] [facility] [address] [id number] [place] [address] August, [facility] [place] [facility] [address] [id number], [place] [address] Jun, [facility] [place] [facility] [address] [id number] [place] [address] Jun, [facility] [place] [facility] [address] [facility] [id number] [place] [address]- [address] Apr, [facility] [place] [facility] [address] [id number] [place] [address]- [address] Apr, [facility] [place] [facility] [address] [id number] [place] [address] 23 Mar, 2011 [facility] [place] [facility] [address] [id number] [place] [address] Feb, [facility] [place] [facility] [address] [id number] [place] [address]- [address] 14 Feb, 2011 [facility] [place] [facility] [address] [id number] [place] [address]- [address] 14 Feb, 2011 [facility] [place] [facility] [address] [id number] [place] [address] 17 Jan, 2011 [facility] [place] [facility] [address] [id number] [place] [address] 15 Jan, 2011 [facility] [place] [facility] [address] [id number] [place] [address]- [address] 15 Jan, 2011 [facility] [place] [facility] [address] [id number] [place] [address] 14 Jan, 2011 [facility] [place] [facility] [address] [id number] [place] [address] 15 May, 2010 [facility] [place] [facility] [address] [id number] [place] [address] Mar, [facility] [place] [facility] [address] [id number] [place] [address] Oct, [facility] [place] [facility] [address] [id number] [place] [address] Sep, [facility] [place] [facility] [address] [id number] [place] [address] 47[address] Mar, [facility] [place] [facility] [address] [id number] [place] [address] Jan, [facility] [place] [facility] [address] [id number] [place] [address] Jan, [facility] [place] [facility] [address] [id number] [place] [address] May, IMMUNIZATIONS No Known Immunizations SOCIAL HISTORY Never Assessed REASON FOR VISIT Lab (walk-in) PLAN OF CARE VITAL SIGNS MEDICATIONS Unknown Medications RESULTS No Results PROCEDURES Procedure Date Ordered Result Body Site GLYCATED HEMOGLOBIN TEST Dec 13, 2017 LIPID PANEL Dec 13, 2017 VENIPUNCT, ROUTINE* Dec 13, 2017 INSTRUCTIONS MEDICATIONS ADMINISTERED No Known Medications MEDICAL (GENERAL) HISTORY Type Description Date Medical History hypertension Medical History Colposcopy with loop electrode excision of the cervix was performed 06/2012, mild squamous atypia (no definite dyplasia). Performed at [facility] Dr. Joy. Medical History Acute [...]
--- OUTSIDE RECORDS SUMMARY | 2018-06-10 04:42 | XMS REPORT ---
Author Author CATRINA BAILEY Organization [facility] Address [address] [place] [address] Care Team Providers Care Desilverizer Name Role Phone BAILEYCATRINA Unavailable PROBLEMS Type Condition ICD9-CM Code [id number] Code Onset Dates Condition Status SNOMED Code Problem Hematuria, unspecified type R31.9 Active 24472836 Problem Anxiety F41.9 Active 69330357 Problem Abnormal renal ultrasound R93.429 Active 63638663133901931 Problem Abnormal glucose R73.09 Active 456349296 Problem 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 Active 166345933 Problem Hypokalemia E87.6 Active 41495819 Problem Neck pain M54.2 Active 95979885 Problem Neuroforaminal stenosis of spine M99.89 Active 621363959431 Problem Mixed hyperlipidemia E78.2 Active 09378742 Problem Essential hypertension I10 Active 08037718 ALLERGIES Substance Reaction Event Type Date Status Fluarix Quadrivalent rash Drug Allergy Dec, Active Zostavax rash Drug Allergy Dec, Active Macrobid rash Drug Allergy Dec, Active Iodine Unknown Drug Allergy Dec, Active Cipro hives Drug Allergy Dec, Active Bactrim hives Drug Allergy Dec, Active Baclofen Unknown Drug Allergy Dec, Active Amitriptyline HCl dizziness Drug Allergy Dec, Active Peanut Unknown Non Drug Allergy Dec, Active ENCOUNTERS Encounter Location Date Diagnosis [facility] [address] [facility] [id number] [address] Feb, [facility] [address] [id number] [address] 13 Dec, 2017 Lateral epicondylitis, right elbow M77.11 [facility] [address] [id number] [address] Dec, Allergic rhinitis due to pollen, unspecified seasonality J30.1 and Allergic conjunctivitis of both eyes H10.13 [place] [id number] [place] [address] 20227- 7748 10 Dec, 2017 Neuroforaminal stenosis of spine M99.89 [place] [address] 98406- 7627 06 Dec, 2017 Mixed hyperlipidemia E78.2 [place] [address] 22401- 0306 05 Dec, 2017 Abnormal glucose R73.09 ; Abnormal renal ultrasound R93.429 ; Dysuria R30.0 ; Cystitis without hematuria N30.90 ; Hypokalemia E87.6 ; Mixed hyperlipidemia E78.2 and Hematuria, unspecified type R31.9 [place] [address] 32438- 6231 Nov, Hypokalemia E87.6 ; Mixed hyperlipidemia E78.2 and Hematuria , unspecified type R31.9 [place] [id number] [place] [address] 86103- 9166 Nov, [place] [address] 70660- 7814 Nov, Hypokalemia E87.6 [place] [address] 73435- 2884 Nov, [place] [address] 38725- 0884 Nov, Abnormal renal ultrasound R93.429 [place] [id number] [place] [address] 83088- 6700 Nov, Abnormal renal ultrasound R93.429 [place] [address] 64212- 3697 Nov, Hematuria, unspecified type R31.9 and Neuroforaminal stenosis of spine M99.89 [place] [address] [id number]- 5839 Nov, Dysuria R30.0 [place] [id number] [place] [address] 46919- 7857 Oct, Lateral epicondylitis, right elbow M77.11 [place] [id number] [place] [address] 29726- 1387 Oct, Neuroforaminal stenosis of spine M99.89 ; Visit for TB skin test Z11.1 and Essential hypertension I10 [place] [address] 64077- 5796 Oct, [place] [address] 22493- 3849 Oct, Neuroforaminal stenosis of spine M99.89 [place] [address] 85313- 6707 Oct, Visit for TB skin test Z11.1 [place] [id number] [place] [address] 91099- 1435 Oct, Cystitis without hematuria N30.90 [place] [address] 99622- 9469 Sep, Screening breast examination Z12.39 [place] [id number] [place] [address] 82222- 6438 Sep, Dysuria R30.0 and Cystitis without hematuria N30.90 [place] [id number] [place] [address] 62731- 0967 Sep, Essential hypertension I10 and Neuroforaminal stenosis of spine M99.89 [place] [address] 85622- 1281 Sep, Abnormal glucose R73.09 [place] [id number] [place] [address] 32004- 8738 August, Lateral epicondylitis, right elbow M77.11 [place] [address] 06975- 8709 August, Screen for STD (sexually transmitted disease) Z11.3 [place] [address] 78975- 3519 August, Neuroforaminal stenosis of spine M99.89 ; Mixed hyperlipidemia E78.2 ; Elevated fasting glucose R73.01 ; Screening mammogram, encounter for Z12.31 and Encounter for well woman exam without gynecological exam Z00.00 [place] [address] 72913- 9724 August, Neuroforaminal stenosis of spine M99.89 [place] [address] 16981- 1925 August, Essential hypertension I10 ; Hypokalemia E87.6 and Mixed hyperlipidemia E78.2 [place] [address] 32276- 7925 Jul, [place] [address] 08519- 6224 Jul, Neuroforaminal stenosis of spine M99.89 [place] [address] 47143- 9930 Jul, Lateral epicondylitis, right elbow M77.11 [place] [id number] [place] [address] 00816- 0528 Jul, [place] [address] 69228- 6235 Jun, High ankle sprain of right lower extremity, initial encounter S93.431A [place] [address] 58708- 8273 Jun, Essential hypertension I10 [place] [id number] [place] [address] 29211- 1503 Jun, [place] [address] 66686- 1715 Jun, [place] [address] 58064- 7001 Jun, Neuroforaminal stenosis of spine M99.89 [place] [address] 47252- 2196 Jun, Pain of right upper extremity M79.601 and Essential hypertension I10 [place] [address] 33333- 0585 Jun, [place] [address] 01626- 3369 Jun, Dysuria R30.0 ; Acute cystitis with hematuria N30.01 and Screen for STD (sexually transmitted disease) Z11.3 [place] [address] 13178- 0731 May, 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 [place] [address] 93379- 7416 May, Essential hypertension I10 [place] [address] 09546- 0019 May, Neuroforaminal stenosis of spine M99.89 [place] [address] 90187- 6501 Apr, Allergic reaction, initial encounter T78.40XA [place] [address] 45764- 4404 Apr, Low back pain, unspecified back pain laterality, unspecified chronicity, with sciatica presence unspecified M54.5 ; Acute cystitis with hematuria N30.01 ; Neuroforaminal stenosis of spine M99.89 ; Bilateral acute serous otitis media, recurrence not specified H65.03 ; Mixed hyperlipidemia E78.2 ; Essential hypertension I10 ; Immunization counseling Z71.89 and Encounter for immunization Z23 [place] [address] 39377- 2039 Apr, Neck pain M54.2 [facility] [address] [address] 5331 Mar, Neuroforaminal stenosis of spine M99.89 [facility] [address], [place] [address] 2363 Mar, Pharyngitis due to other organism J02.8 [facility] [id number] [place] [address] 09409- 3631 Feb, Neuroforaminal stenosis of spine M99.89 [facility] [address] [address] 1067 Feb, UTI (urinary tract infection) N39.0 [facility] [address] [place] [address] 65181- 3999 Feb, Recent urinary tract infection Z87.440 ; Neuroforaminal stenosis of spine M99.89 ; Neck pain M54.2 ; 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 and Recurrent UTI N39.0 [facility] [address] [address]- 6839 Feb, [facility] [id number] [place] [address] 32544- 9883 Jan, Neuroforaminal stenosis of spine M99.89 [facility] [address] [address]- 3116 Dec, Neuroforaminal stenosis of spine M99.89 [facility] [address] [address]- 1639 18 Dec, 2016 Acute seasonal allergic rhinitis due to pollen J30.1 [facility] [address] [address]- 9337 08 Dec, 2016 [facility] [address] [address]- 6662 08 Dec, 2016 Acute seasonal allergic rhinitis, unspecified trigger J30.2 ; Allergic conjunctivitis of both eyes H10.13 and Dysfunction of both eustachian tubes H69.83 [place] [id number] [place] [address] 61300- 6203 Dec, [place] [id number] [place] [address] 69278- 7884 Dec, Nevus D22.9 [place] [id number] [place] [address] 60002- 2261 Nov, 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 and Neuroforaminal stenosis of spine M99.89 [place] [id number] [place] [address] 61914- 5905 Nov, Neuroforaminal stenosis of spine M99.89 ; Essential hypertension I10 ; Mixed hyperlipidemia E78.2 ; Hypokalemia E87.6 ; Neck pain M54.2 and Nevus D22.9 [place] [id number] [place] [address] 21630- 4847 Oct, Neuroforaminal stenosis of spine M99.89 [place] [id number] [place] [address] 02142- 7575 Sep, Neuroforaminal stenosis of spine M99.89 [place] [id number] [place] [address] 05782- 6196 Sep, [place] [id number] [place] [address] 02954- 5275 August, [place] [id number] [place] [address] 30975- 9745 August, Neck pain M54.2 and Neuroforaminal stenosis of spine M99.89 [place] [id number] [place] [address] 05314- 7812 August, Routine gynecological examination Z01.419 and Screening breast examination Z12.39 [place] [id number] [place] [address] 67333- 0006 Jul, [place] [address] [address]- 2450 Jul, [facility] [id number] [place] [address] 16010- 9732 Jul, Neuroforaminal stenosis of spine M99.89 [facility] [id number] [place] [address] 80522- 8620 Jul, [facility] [id number] [place] [address] 46189- 7895 Jul, 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 [facility] [id number] [place] [address] 36935- 9728 Jul, [facility] [id number] [place] [address] 95539- 5461 Jul, [facility] [id number] [place] [address] 06163- 5604 Jun, Neuroforaminal stenosis of spine M99.89 [facility] [address] [address]- 4716 Jun, Uterine leiomyoma, unspecified location D25.9 and Allergic reaction caused by a drug, initial encounter T78.40XA [facility] [address] [address]- 3918 Jun, [facility] [id number] [place] [address] 63015- 4306 May, UTI symptoms R39.9 and Pain of right sacroiliac joint M53.3 [facility] [id number] [place] [address] 54752- 2946 May, Neuroforaminal stenosis of spine M99.89 [facility] [address] [address]- 0653 May, [facility] [id number] [place] [address] 01306- 6669 May, Acute mucoid otitis media of left ear H65.112 and Acute non- recurrent maxillary sinusitis J01.00 [place] [address] 36414- 2950 May, Acute bacterial conjunctivitis of both eyes H10.33 ; Left arm pain M79.602 and Hypokalemia E87.6 [place] [address] 37691- 8640 Apr, [place] [address] 89896- 4998 Apr, Neuroforaminal stenosis of spine M99.89 ; Neck pain M54.2 ; 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 ; Mixed hyperlipidemia E78.2 ; Essential hypertension I10 and Hypokalemia E87.6 [place] [address] 34593- 0282 Mar, Oral candidiasis B37.0 ; Neuroforaminal stenosis of spine M99.89 ; Neck pain M54.2 and 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 [place] [address] 36390- 8598 Feb, [place] [id number] [place] [address] 51956- 7550 Feb, [place] [address] 32919- 7500 Feb, UTI (urinary tract infection) N39.0 [place] [address] 15021- 1804 Feb, Dysuria R30.0 [place] [address] 83153- 3688 Feb, Dysuria R30.0 [place] [id number] [place] [address] 76878- 8638 Feb, Neuroforaminal stenosis of spine M99.89 ; Neck pain M54.2 ; Essential hypertension I10 ; 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 ; Dysuria R30.0 ; Abnormal MRI, shoulder R93.8 and Acute cystitis without hematuria N30.00 [facility] [id number] [place] [address] 90221- 4612 Jan, [facility] [id number] [place] [address] 21611- 4728 Jan, [facility] [id number] [place] [address] 84257- 9114 Jan, [facility] [id number] [place] [address] 30984- 3921 Jan, Abnormal MRI R93.8 [facility] [id number] [place] [address] 36033- 9995 29 Dec, 2015 [facility]ALK [facility] [address] 07218 -5487 15 Dec, 2015 Acute pain of left shoulder M25.512 [facility] [id number] [place] [address] 65976- 7368 09 Dec, 2015 [facility] [id number] [place] [address] 52849- 4928 08 Dec, 2015 [facility] [id number] [place] [address] 78989- 7562 07 Dec, 2015 Acute pain of left shoulder M25.512 [facility] [id number] [place] [address] 84606- 3740 Nov, [facility] [id number] [place] [address] 71141- 6057 Nov, Neuroforaminal stenosis of spine M99.89 ; Neck pain M54.2 ; Abnormal mammogram R92.8 ; Essential hypertension I10 and 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 [facility] [id number] [place] [address] 17021- 1450 Nov, [place] [address] [id number] [address]- 8292 Oct, Acute stress disorder F43.0 [facility] [address] [id number] [place] [address]- 5900 Oct, [facility] [address] [facility] [id number], [place] [address]- 6889 Oct, [facility] [address] [facility] [id number], [place] [address]- 9858 Oct, [facility] [address] [facility] [id number], [place] [address]- 5165 Sep, [facility] [address] [facility] [id number], [place] [address]- 8162 August, [facility] [address] [facility] [id number], [place] [address]- 5880 Jul, Neuroforaminal stenosis of spine M99.89 ; Neck pain M54.2 ; Abnormal mammogram R92.8 and Essential hypertension I10 [facility] [address] [facility] [id number], [place] [address]- 0295 Jul, [facility] [address] [facility] [id number], [place] [address]- 6373 Jul, [facility] [address] [facility] [id number], [place] [address]- 4251 Jul, Abnormal mammogram R92.8 [facility] [address] [facility] [id number], [place] [address]- 5969 Jul, [facility] [address] [facility] [id number], [place] [address]- 5845 Jul, UTI (urinary tract infection) N39.0 [facility] [address] [facility] [id number], [place] [address]- 3898 Jul, Dysuria R30.0 [facility] [id number], [place] [address]- 5482 Jun, [place] [address] [address]- 5204 Jun, [place] [id number] [place] [address] 21649- 3711 Jun, Hypokalemia E87.6 and Hematuria R31.9 [place] [id number] [place] [address] 26608- 6412 Jun, Hypokalemia E87.6 [place] [id number] [place] [address] 54106- 5130 Jun, [place] [id number] [place] [address] 36400- 3257 Jun, Hypokalemia E87.6 [place] [id number] [place] [address] 50729- 1576 Jun, Hypokalemia E87.6 [place] [id number] [place] [address] 13903- 9210 15 Jun, 2015 Neuroforaminal stenosis of spine M99.89 ; Hypokalemia E87.6 ; Neck pain M54.2 ; Essential hypertension I10 ; Mixed hyperlipidemia E78.2 and Screening breast examination Z12.39 [place] [address] [place] [address] 46590- 3993 08 Jun, 2015 Dysuria R30.0 ; UTI (urinary tract infection) N39.0 and Hematuria R31.9 [place] [address] [address]- 4868 May, [place] [id number] [place] [address] 90246- 3466 May, High risk sexual behavior Z72.51 ; Hypokalemia E87.6 ; Neuroforaminal stenosis of spine M99.89 ; Neck pain M54.2 ; Essential hypertension I10 ; Mixed hyperlipidemia E78.2 ; STD exposure Z20.2 and Concern about STD in female without diagnosis Z71.1 [facility] [address] [place] [address] 26606- 0846 16 May, 2015 Neuroforaminal stenosis of spine M99.89 ; Neck pain M54.2 ; Hypokalemia E87.6 ; Essential hypertension I10 and Mixed hyperlipidemia E78.2 [facility] [id number] [place] [address] 40932- 7131 11 May, 2015 [facility] WALK IN [facility] [id number] [place] [address] 81141 -7183 08 May, 2015 High risk sexual behavior Z72.51 ; STD exposure Z20.2 and Concern about STD in female without diagnosis Z71.1 [place] [id number] [place] [address] 91676- 2801 05 May, 2015 [facility] [id number] [place] [address] 90310- 3683 Apr, Neuroforaminal stenosis of spine M99.89 ; Mixed hyperlipidemia E78.2 ; Essential hypertension I10 and Hypokalemia E87.6 [place] [id number] [place] [address] 10743- 3163 Mar, [place] [id number] [place] [address] 01525- 6188 Mar, Hypokalemia E87.6 [place] [id number] [place] [address] 12969- 4553 Mar, Neuroforaminal stenosis of spine M99.89 ; Mixed hyperlipidemia E78.2 ; Neck pain M54.2 ; Essential hypertension I10 ; Abnormal fasting glucose R73.09 ; Hypokalemia E87.6 and Constipation K59.00 [place] [id number] [place] [address] 28060- 9479 Feb, Neuroforaminal stenosis of spine M99.89 ; Mixed hyperlipidemia E78.2 ; Neck pain M54.2 ; Essential hypertension I10 ; Abnormal fasting glucose R73.09 ; Hypokalemia E87.6 and Constipation K59.00 [place] [id number] [place] [address] 82986- 7332 Feb, Elevated fasting blood sugar R73.01 [place] [address] 30100- 5305 Feb, Elevated fasting blood sugar R73.01 [place] [address] 62751- 4626 Feb, Hair loss L65.9 [place] [address] 23231- 3216 Feb, Sinusitis J32.9 ; Essential hypertension I10 and Hair loss L65.9 [place] [address] 48429- 0242 Jan, [place] [address] 27505- 4207 Jan, Essential hypertension I10 ; Neuroforaminal stenosis of spine M99.89 ; Neck pain M54.2 ; Mixed hyperlipidemia E78.2 and Anxiety F41.9 [place] [address] 55178- 8283 Jan, [place] [id number] [place] [address] 43271- 0633 Jan, Mixed hyperlipidemia E78.2 ; Essential (primary) hypertension I10 ; Strain of muscle, fascia and tendon at neck level, subsequent encounter S16.1XXD and Tension-type headache, unspecified, not intractable G44.209 [place] [address] [place] [id number] [place] [address]- 48[address] Dec, Lumbar back pain 724.2 and Neuroforaminal stenosis of spine 724.00 [place] [address] [address]- [address] Nov, [place] [address] [address] Nov, Lumbar back pain 724.2 and Neuroforaminal stenosis of spine 724.00 [facility] [address] [place] [id number] [place] [address]- [address] Nov, Edema 782.3 ; Lumbar back pain 724.2 ; Essential hypertension, benign 401.1 ; Hyperlipemia 272.4 ; Neuroforaminal stenosis of spine 724.00 and Post-concussion headache 339.20 [facility] [address] [address]- [address] Nov, [facility] [address] [address]- [address] Nov, [facility] [address] [address]- [address] Oct, Essential hypertension, benign 401.1 [facility] [address] [address]- [address] Oct, Edema 782.3 ; Lumbar back pain 724.2 ; Essential hypertension, benign 401.1 ; Hyperlipemia 272.4 ; Neuroforaminal stenosis of spine 724.00 and Post-concussion headache 339.20 [place] [address] [place] [id number] [place] [address]- 5936 Oct, [facility] [address] [place] [id number] [place] [address]64- 4782 Oct, Edema 782.3 [facility] [address] [address]- [address] Oct, Lumbar back pain 724.2 [facility] [address] [place] [id number] [place] [address] 99204- 0205 Oct, Cervicalgia 723.1 ; Lumbar back pain 724.2 and High risk medication use V58.69 [facility] [address] [place] [id number] [place] [address]140- [address] Sep, [facility] [address] [address]- [address] Sep, Lumbar strain 847.2 [facility] [id number] [place] [address]- 3976 August, Edema 782.3 and Eustachian tube dysfunction 381.81 [facility] [address] [id number] [address] August, [facility] [id number] [place] [address] 2546 August, Eustachian tube dysfunction 381.81 [facility] [id number] [place] [address] Jul, Otalgia 388.70 and Otitis media 382.9 [facility] [id number] [address] Jul, [facility] [id number] [address] 6[address] Jul, [facility] [id number] [address] 9907 Jul, [facility] [id number] [address] 00[address] Jul, [facility] [id number] [address] 1401 Jul, [facility] [id number] [address] 2546 Jun, [facility] [id number] [address] 2548 Jun, [facility] [id number] [address] 9[address] Jun, [facility] [id number] [address]- 9056 May, [facility] [id number] [address] May, [facility] [place] [facility] [address] [id number] [place] [address] 3432 May, 2014 [facility] [place] [facility] [address] [id number] [place] [address]- 6830 May, 2014 [facility] [place] [facility] [address] [id number] [place] [address]- 1943 May, 2014 [facility] [place] [facility] [address] [id number] [place] [address]- 8105 May, 2014 [facility] [place] [facility] [address] [id number] [place] [address]- 1314 May, [facility] [place] [facility] [address] [id number] [place] [address]- 5779 May, 2014 [facility] [place] [facility] [address] [id number] [place] [address]- 1175 May, [facility] [place] [facility] [address] [id number] [place] [address]- 4575 May, [facility] [place] [facility] [address] [id number] [place] [address]- 8007 Apr, [facility] [place] [facility] [address] [id number] [place] [address]- 5839 Apr, [facility] [place] [facility] [address] [id number] [place] [address]- 5546 Apr, [facility] [place] [facility] [address] [id number] [place] [address]- 1253 Apr, [facility] [place] [facility] [address] [id number] [place] [address]- 1443 Apr, [facility] [place] [facility] [address] [id number] [place] [address]- 6561 Apr, [facility] [place] [facility] [address] [id number] [place] [address]- 1031 Apr, [facility] [place] [facility] [address] [id number] [place] [address]- 5360 Apr, [facility] [address] [id number] [place] [address]- 4615 Apr, [facility] [place] [facility] [address] [id number] [place] [address]- 6022 Apr, [facility] [address] [id number] [place] [address]- 6638 Apr, [facility] [place] [facility] [address] [id number] [place] [address]- 9444 Apr, [facility] [place] [facility] [address] [id number] [place] [address]- 3175 Apr, [facility] [place] [address] [id number] [place] [address]- 8044 Apr, [facility] [address] [id number] [place] [address]- 5499 Apr, [facility] [address] [id number] [place] [address]- 1183 Mar, [facility] [place] [facility] [address] [id number] [place] [address]- 8545 Mar, [facility] [address] [id number] [place] [address]- 7666 Mar, [facility] [place] [facility] [address] [id number] [place] [address]- 0333 Mar, [facility] [place] [facility] [address] [id number] [place] [address]- 2234 Feb, [facility] [place] [facility] [address] [id number] [place] [address]- 6012 Feb, [facility] [place] [facility] [address] [id number] [place] [address]- 1836 Feb, [facility] [place] [facility] [address] [id number] [place] [address]- 8195 Feb, [facility] [place] [facility] [address] [id number] [place] [address]- 1622 Jan, [facility] [place] [facility] [address] [id number] [place] [address]- 4484 Jan, [facility] [place] [facility] [address] [id number] [place] [address]- 4399 Jan, [facility] [place] [facility] [address] [id number] [place] [address]- 7166 Jan, [facility] [place] [facility] [address] [id number] [place] [address] Jan, [facility] [place] [facility] [address] [id number] [place] [address]- 0953 Jan, [facility] [place] [facility] [address] [id number] [place] [address]- 7213 Jan, [facility] [place] [facility] [address] [id number] [place] [address]- 9538 Jan, [facility] [place] [facility] [address] [id number] [place] [address]- 3542 Dec, [facility] [place] [facility] [address] [id number] [place] [address]- 9180 Dec, [facility] [place] [facility] [address] [id number] [place] [address]- 3544 Dec, [facility] [place] [facility] [address] [id number] [place] [address]- 3692 Dec, [facility] [place] [facility] [address] [id number] [place] [address]- 1025 Oct, [facility] [place] [facility] [address] [id number] [place] [address]- 9990 Oct, [facility] [place] [facility] [address] [id number] [place] [address]- 1118 Oct, [facility] [place] [facility] [address] [id number] [place] [address]- 8746 Oct, [facility] [place] [facility] [address] [id number] [place] [address]- 2781 Oct, [facility] [place] [facility] [address] [id number] [place] [address]- 6169 Oct, [facility] [place] [facility] [address] [id number] [place] [address]- 4183 Oct, [facility] [place] [facility] [address] [id number] [place] [address]- 9743 Oct, [facility] [place] [facility] [address] [id number] [place] [address]- 6851 Sep, [facility] [place] [facility] [address] [id number] [place] [address]- 4736 Sep, [facility] [place] [facility] [address] [id number] [place] [address]- 5989 Sep, [facility] [place] [facility] [address] [id number] [place] [address]- 1089 Sep, [facility] [place] [facility] [address] [id number] [place] [address]- 7229 Sep, [facility] [place] [facility] [address] [id number] [place] [address]- 3305 Sep, [facility] [place] [facility] [address] [id number] [place] [address]- 5579 Sep, [facility] [place] [facility] [address] [id number] [place] [address]- 8182 Sep, [facility] [place] [facility] [address] [id number] [place] [address]- 1650 Sep, [facility] [place] [facility] [address] [id number] [place] [address]- 0327 Sep, [facility] [place] [facility] [address] [id number] [place] [address]- 2182 August, [facility] [place] [facility] [address] [id number] [place] [address]- 8542 August, [facility] [place] [facility] [address] [id number] [place] [address]- 8092 August, [facility] [place] [facility] [address] [id number] [place] [address]- 5602 August, [facility] [place] [facility] [address] [id number] [place] [address]- 8260 August, [facility] [place] [facility] [address] [id number] [place] [address]- 8412 August, [facility] [place] [facility] [address] [id number] [place] [address]- 3138 August, [facility] [place] [facility] [address] [id number] [place] [address]- 7090 August, [facility] [place] [facility] [address] [id number] [place] [address]- 1575 August, [facility] [place] [facility] [address] [id number] [place] [address]- 0910 August, [facility] [place] [facility] [address] [id number] [place] [address]- 4871 August, [facility] [place] [facility] [address] [id number] [place] [address]- 8595 August, [facility] [place] [facility] [address] [id number] [place] [address]- 2298 Jul, [facility] [place] [facility] [address] [id number] [place] [address]- 5697 Jul, [facility] [place] [facility] [address] [id number] [place] [address]- 4120 Jul, [facility] [place] [facility] [address] [id number] [place] [address]- 0113 Jul, [facility] [place] [facility] [address] [id number] [place] [address]- 6200 Jul, [facility] [place] [facility] [address] [id number] [place] [address]- 2341 Jul, [facility] [place] [facility] [address] [id number] [place] [address]- 7733 Jun, [facility] [place] [facility] [address] [id number] [place] [address]- 3945 Jun, [facility] [place] [facility] [address] [id number] [place] [address]- 9766 May, [facility] [place] [facility] [address] [id number] [place] [address]- 8881 May, [facility] [place] [facility] [address] [id number] [place] [address]- 1299 Apr, [facility] [place] [facility] [address] [id number] [place] [address]- 7656 Apr, [facility] [place] [facility] [address] [id number] [place] [address]- 6433 Apr, [facility] [place] [facility] [address] [id number] [place] [address]- 6531 Apr, [facility] [place] [facility] [address] [id number] [place] [address]- 9473 Apr, [facility] [place] [facility] [address] [id number] [address]- 0045 Apr, [facility] [place] [facility] [address] [id number], [place] [address]- 5603 Apr, [facility] [place] [facility] [address] [id number] [place] [address]- 4870 Apr, [facility] [place] [facility] [address] [id number], [place] [address]- 9489 Apr, [facility] [place] [facility] [address] [id number] [place] [address]- 1449 Apr, [facility] [place] [facility] [address] [id number] [place] [address]- 9199 Apr, [facility] [address] [id number] [place] [address]- 7455 Apr, [facility] [place] [facility] [address] [id number] [place] [address]- 6834 Apr, [facility] [address] [id number] [place] [address]- 0939 Mar, [facility] [place] [facility] [address] [id number] [place] [address]- 9642 Mar, [facility] [place] [address] [id number] [place] [address]- 5292 Mar, [facility] [place] [address] [id number] [place] [address]- 2030 Mar, [facility] [place] [address] [id number] [place] [address]- 9340 Feb, [facility] [address] [id number] [place] [address]- 7660 Feb, [facility] [place] [address] [id number] [place] [address]- 6498 Feb, [facility] [place] [facility] [address] [facility] [id number] [place] [address]- 0498 Feb, [facility] [place] [facility] [address] [id number] [place] [address]- 6958 14 Jan, 2013 [facility] [place] [facility] [address] [id number] [place] [address]- 4996 14 Jan, 2013 [facility] [place] [facility] [address] [id number] [place] [address]- 2060 11 Jan, 2013 [facility] [place] [facility] [address] [id number] [place] [address]- 4180 11 Jan, 2013 [facility] [place] [facility] [address] [id number] [place] [address]- 6251 Jan, [facility] [place] [facility] [address] [id number] [place] [address]- 9360 Jan, [facility] [place] [facility] [address] [id number] [place] [address]- 2883 Jan, [facility] [place] [facility] [address] [id number] [place] [address]- 5661 Jan, [facility] [place] [facility] [address] [id number] [place] [address]- 4908 Jan, [facility] [place] [facility] [address] [id number] [place] [address]- 9174 26 Dec, 2012 [facility] [place] [facility] [address] [id number] [place] [address]- 8273 16 Dec, 2012 [facility] [place] [facility] [address] [id number] [place] [address]- 5357 16 Dec, 2012 [facility] [place] [facility] [address] [id number] [place] [address]- 4708 Dec, [facility] [place] [facility] [address] [id number] [place] [address]- 7679 Nov, [facility] [place] [facility] [address] [id number], [place] [address]- 8425 Nov, [facility] [place] [facility] [address] [id number] [place] [address]- 8109 Nov, [facility] [place] [facility] [address] [id number], [place] [address]- 1949 Nov, [facility] [place] [facility] [address] [id number] [place] [address]- 1555 Oct, [facility] [place] [facility] [address] [id number] [place] [address]- 2304 Sep, [facility] [place] [facility] [address] [id number], [place] [address]- 6255 August, [facility] [place] [facility] [address] [id number], [place] [address]- 5852 August, [facility] [address] [id number] [place] [address]- 0665 August, [facility] [address] [id number] [place] [address]- 5149 August, [facility] [address] [id number] [place] [address]- 6888 August, [facility] [address] [id number] [place] [address]- 3775 August, [facility] [address] [id number] [place] [address]- 7046 August, [facility] [address] [id number] [place] [address]- 9641 August, [facility] [address] [id number] [place] [address]- 9035 August, [facility] [address] [id number] [place] [address]- 2172 August, [facility] [address] [id number] [place] [address]- 8314 August, [facility] [address] [id number] [place] [address]- 1252 August, [facility] [address] [id number] [place] [address]- 8002 Jul, [facility] [address] [id number] [place] [address]- 7325 Jul, [facility] [address] [id number] [place] [address]- 5473 18 Jul, 2012 [facility] [place] [address] [id number] [place] [address]- 0671 15 Jul, 2012 [facility] [address] [id number] [place] [address]- 4717 Jul, [facility] [address] [id number] [place] [address]- 0218 08 Jul, 2012 [facility] [address] [id number] [place] [address]- 3329 Jul, [facility] [place] [facility] [address] [id number] [place] [address]- 7901 Jul, [facility] [place] [facility] [address] [id number] [place] [address]- 1001 Jul, [facility] [place] [facility] [address] [id number] [place] [address]- 2060 Jul, [facility] [place] [facility] [address] [id number] [place] [address]- 9641 Jul, [facility] [place] [facility] [address] [id number] [place] [address]- 1697 Jun, [facility] [place] [facility] [address] [id number] [place] [address]- 5491 Jun, [facility] [place] [facility] [address] [id number] [place] [address]- 2831 Jun, [facility] [place] [facility] [address] [id number] [place] [address]- 4230 Jun, [facility] [place] [facility] [address] [id number] [place] [address]- 0844 May, [facility] [place] [facility] [address] [id number] [place] [address]- 5825 14 May, 2012 [facility] [place] [facility] [address] [id number] [place] [address]- 0383 05 May, 2012 [facility] [place] [facility] [address] [id number] [place] [address]- 1896 04 May, 2012 [facility] [place] [facility] [address] [id number] [place] [address]- 3043 04 May, 2012 [facility] [place] [facility] [address] [id number] [place] [address]- 2546 May, [facility] [address] [id number] [place] [address]- 5423 Apr, [facility] [place] [facility] [address] [id number] [place] [address]- 7406 Apr, [facility] [place] [facility] [address] [id number] [place] [address]- 3262 Apr, [facility] [place] [facility] [address] [id number] [place] [address]- 0451 Apr, [facility] [place] [facility] [address] [id number] [place] [address]- 3729 15 Mar, 2012 [facility] [place] [facility] [address] [id number] [place] [address]- 3358 Mar, [facility] [place] [facility] [address] [id number] [place] [address]- 9964 Mar, [facility] [place] [facility] [address] [id number] [place] [address]- 6163 Mar, [facility] [place] [facility] [address] [id number] [place] [address]- 3945 Mar, [facility] [place] [facility] [address] [id number] [place] [address]- 4663 Mar, [facility] [place] [facility] [address] [id number] [place] [address]- 0620 Mar, [facility] [place] [facility] [address] [id number] [place] [address]- 2174 Feb, [facility] [place] [facility] [address] [id number] [place] [address]- 4565 Feb, [facility] [place] [facility] [address] [id number] [place] [address]- 7862 Feb, [facility] [place] [facility] [address] [id number] [place] [address]- 7028 Feb, [facility] [place] [facility] [address] [id number] [place] [address]- 9232 Jan, [facility] [place] [facility] [address] [id number] [place] [address]- 3075 Jan, [facility] [place] [facility] [address] [id number] [place] [address]- 1085 Jan, [facility] [place] [facility] [address] [id number] [place] [address]- 8764 Jan, [facility] [place] [facility] [address] [id number] [place] [address] Jan, [facility] [place] [facility] [address] [id number] [place] [address] Jan, [facility] [place] [facility] [address] [id number] [place] [address] Dec, [facility] [place] [facility] [address] [id number] [place] [address] Dec, [facility] [address] [id number] [place] [address] Nov, [facility] [place] [facility] [address] [id number] [place] [address] Sep, [facility] [place] [facility] [address] [id number] [place] [address] August, [facility] [place] [facility] [address] [id number] [place] [address] August, [facility] [place] [facility] [address] [id number] [place] [address] August, [facility] [place] [facility] [address] [id number] [place] [address] August, [facility] [place] [facility] [address] [id number] [place] [address] August, [facility] [place] [facility] [address] [id number] [place] [address] Jun, [facility] [place] [facility] [address] [id number] [place] [address] Jun, [facility] [place] [facility] [address] [id number] [place] [address] Apr, [facility] [place] [facility] [address] [id number] [place] [address] Apr, [facility] [place] [facility] [address] [id number] [place] [address] Mar, [facility] [place] [facility] [address] [id number] [place] [address] Feb, [facility] [place] [facility] [address] [id number] [place] [address] Feb, [facility] [place] [facility] [address] [id number] [place] [address] Feb, [facility] [place] [facility] [address] [id number] [place] [address] 17 Jan, 2011 [facility] [place] [facility] [address] [id number] [place] [address] 15 Jan, 2011 [facility] [place] [facility] [address] [id number] [place] [address] 15 Jan, 2011 [facility] [place] [facility] [address] [id number] [place] [address] Jan, [facility] [place] [facility] [address] [id number] [address] 15 May, 2010 [facility] [place] [facility] [address] [id number] [place] [address] Mar, [facility] [place] [facility] [address] [id number] [place] [address] Oct, [facility] [place] [facility] [address] [id number] [place] [address] 14 Sep, 2009 [facility] [place] [facility] [address] [facility] [id number] [place] [address] Mar, [facility] [address] [facility] [id number], [place] [address] Jan, [facility] [address] [facility] [id number], [place] [address] Jan, [facility] [address] [facility] [id number] [address] May, IMMUNIZATIONS Vaccine Route Administration Date Status DEXAMETHASONE 4MG/ML (PER 1 MG) IM Intramuscular Dec 19, 2017 Administered DEPO MEDROL 40 MG/ML IM Intramuscular Dec 19, 2017 Administered SOCIAL HISTORY Never Assessed REASON FOR VISIT eye c/o-SUMAN coleman, patient states when she wakes up in the morning her eyes are matted shut, both eyes are sore. PLAN OF CARE Activity Details Follow Up prn Reason: VITAL SIGNS Height 62 in 2017-12-19 Weight 178.0 lbs 2017-12-19 Temperature 98.2 degrees Fahrenheit 2017-12-19 Heart Rate 86 bpm 2017-12-19 Respiratory Rate 18 2017-12-19 Oximetry on room air:99 % 2017-12-19 BMI 32.55 kg/m2 2017-12-19 Blood pressure systolic 120 mmHg 2017-12-19 Blood pressure diastolic 82 mmHg 2017-12-19 MEDICATIONS Medication Instructions Dosage Frequency Start Date End Date Duration Status Meclizine HCl 25 MG Orally Once a day 1 tablet as needed 24h Active Triamterene-HCTZ 37.5-25 MG Orally Once a day 1 tablet in the morning 24h 30 Active Cyclobenzaprine HCl 10 mg Orally Three times a day 1 tablet as needed 8h Active Amlodipine Besylate 5 mg Orally Once a day 1 tablet 24h 30 days Active Pravastatin Sodium 40 MG Orally Once a day TAKE ONE TABLET BY MOUTH AT BEDTIME 24h 30 Active Hydrocodone-Acetaminophen 5-325 MG Orally 3 -4 times a day prn. must last 4 weeks 1 tablet as needed Dec, 28 days Active Klor-Con 10 10 MEQ Orally twice a day 1 tablet 12h 28 Feb, 2018 30 days Active Naproxen 500 mg Orally every 12 hrs 1 tablet with food or milk as needed 12h Active RESULTS No Results PROCEDURES Procedure Date Ordered Result Body Site DEPO MEDROL 40 MG/ML Dec 19, 2017 DEXAMETHASONE 4MG/ML (PER 1 MG) Dec 19, 2017 THER/PROPH/DIAG INJ, SC/IM Dec 19, 2017 INSTRUCTIONS MEDICATIONS ADMINISTERED No Known Medications MEDICAL (GENERAL) HISTORY Type Description Date Medical History hypertension Medical History Colposcopy with loop electrode excision of the cervix was performed 06/2012, mild squamous atypia (no definite dyplasia). Performed at [facility] Dr. Joy. Medical History Acute suppurative [...] cut in index finger sometime in the s. Surgical History colonoscopy 04-28-15 Hospitalization History hospitalizations for surgeries only
--- OUTSIDE RECORDS SUMMARY | 2018-06-10 04:43 | XMS REPORT ---
Author Author KING BETI [facility] Address [address] [place] [address] Care Team Providers Care Secret Code Expert Name Role Phone BETI STAUFFER Unavailable PROBLEMS Type Condition ICD9-CM Code UPT48-CB Code Onset Dates Condition Status SNOMED Code Problem Hematuria, unspecified type R31.9 Active 61075781 Problem Anxiety F41.9 Active 18166332 Problem Abnormal renal ultrasound R93.429 Active [id number] Problem Abnormal glucose R73.09 Active 295583608 Problem 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 Active 194258008 Problem Hypokalemia E87.6 Active 04475542 Problem Neck pain M54.2 Active 38052731 Problem Neuroforaminal stenosis of spine M99.89 Active 213626049128 Problem Mixed hyperlipidemia E78.2 Active 68571329 Problem Essential hypertension I10 Active 95209787 ALLERGIES Substance Reaction Event Type Date Status Fluarix Quadrivalent rash Drug Allergy Nov, Active Zostavax rash Drug Allergy Nov, Active Macrobid rash Drug Allergy Nov, Active Iodine Unknown Drug Allergy Nov, Active Cipro hives Drug Allergy Nov, Active Bactrim hives Drug Allergy Nov, Active Baclofen Unknown Drug Allergy Nov, Active Amitriptyline HCl dizziness Drug Allergy Nov, Active Peanut Unknown Non Drug Allergy Nov, Active ENCOUNTERS Encounter Location Date Diagnosis [facility] [address] [facility] [id number] [address] Feb, [facility] [address] [id number] [address] 13 Dec, 2017 Lateral epicondylitis, right elbow M77.11 [facility] [address] [id number] [address] 7[address] 11 Dec, 2017 Allergic rhinitis due to pollen, unspecified seasonality J30.1 and Allergic conjunctivitis of both eyes H10.13 [facility] [id number] [place] [address] 48746- 9585 10 Dec, 2017 Neuroforaminal stenosis of spine M99.89 [facility] [address] 51844- 3550 06 Dec, 2017 Mixed hyperlipidemia E78.2 [facility] [address] 36925- 2635 05 Dec, 2017 Abnormal glucose R73.09 ; Abnormal renal ultrasound R93.429 ; Dysuria R30.0 ; Cystitis without hematuria N30.90 ; Hypokalemia E87.6 ; Mixed hyperlipidemia E78.2 and Hematuria, unspecified type R31.9 [facility] [address] 80507- 4051 Nov, Hypokalemia E87.6 ; Mixed hyperlipidemia E78.2 and Hematuria , unspecified type R31.9 [facility] [id number] [place] [address] 47287- 8586 Nov, [facility] [address] 43824- 0363 Nov, Hypokalemia E87.6 [facility] [address] 29534- 5962 Nov, [facility] [address] 95950- 7436 Nov, Abnormal renal ultrasound R93.429 [facility] [id number] [place] [address] 59704- 7546 Nov, Abnormal renal ultrasound R93.429 [facility] [address] 48109- 8817 Nov, Hematuria, unspecified type R31.9 and Neuroforaminal stenosis of spine M99.89 [facility] [address] 60865801- 2070 Nov, Dysuria R30.0 [facility] [id number] [place] [address] 14950- 1292 Oct, Lateral epicondylitis, right elbow M77.11 [facility] [id number] [place] [address] 71602- 2731 Oct, Neuroforaminal stenosis of spine M99.89 ; Visit for TB skin test Z11.1 and Essential hypertension I10 [facility] [facility] [address] 92111- 1368 Oct, [facility] [address] 21867- 6356 Oct, Neuroforaminal stenosis of spine M99.89 [facility] [address] 04209- 9176 Oct, Visit for TB skin test Z11.1 [facility] [id number] [place] [address] 49537- 3862 Oct, Cystitis without hematuria N30.90 [facility] [address] 31061- 1775 Sep, Screening breast examination Z12.39 [facility] [id number] [place] [address] 41858- 9305 Sep, Dysuria R30.0 and Cystitis without hematuria N30.90 [facility] [id number] [place] [address] 05054- 7724 Sep, Essential hypertension I10 and Neuroforaminal stenosis of spine M99.89 [facility] [address] 23069- 7800 Sep, Abnormal glucose R73.09 [facility] [id number] [place] [address] 38744- 5059 August, Lateral epicondylitis, right elbow M77.11 [facility] [address] 20667- 2309 August, Screen for STD (sexually transmitted disease) Z11.3 [facility] [facility] [address] 62232- 8726 August, Neuroforaminal stenosis of spine M99.89 ; Mixed hyperlipidemia E78.2 ; Elevated fasting glucose R73.01 ; Screening mammogram, encounter for Z12.31 and Encounter for well woman exam without gynecological exam Z00.00 [facility] [address] 70538- 0505 August, Neuroforaminal stenosis of spine M99.89 [facility] [address] 11248- 7635 August, Essential hypertension I10 ; Hypokalemia E87.6 and Mixed hyperlipidemia E78.2 [facility] [facility] [address] 24036- 5782 Jul, [facility] [address] 62168- 7613 Jul, Neuroforaminal stenosis of spine M99.89 [facility] [address] 00864- 8630 Jul, Lateral epicondylitis, right elbow M77.11 [facility] [id number] [place] [address] 86195- 3861 Jul, [facility] [address] 91263- 5743 Jun, High ankle sprain of right lower extremity, initial encounter S93.431A [facility] [address] 61513- 9488 Jun, Essential hypertension I10 [facility] [id number] [place] [address] 54736- 3140 Jun, [facility] [facility] [address] 61307- 2259 Jun, [facility] [address] 02444- 6874 Jun, Neuroforaminal stenosis of spine M99.89 [facility] [address] 12244- 5680 Jun, Pain of right upper extremity M79.601 and Essential hypertension I10 [facility] [address] 28783- 1607 Jun, [facility] [facility] [address] 58948- 7781 Jun, Dysuria R30.0 ; Acute cystitis with hematuria N30.01 and Screen for STD (sexually transmitted disease) Z11.3 [facility] [facility] [address] 39241- 9399 May, 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 [facility] [address] 13007- 8495 May, Essential hypertension I10 [facility] [address] 14858- 7392 May, Neuroforaminal stenosis of spine M99.89 [facility] [address] 48357- 6863 Apr, Allergic reaction, initial encounter T78.40XA [facility] [address] 19578- 8568 Apr, Low back pain, unspecified back pain laterality, unspecified chronicity, with sciatica presence unspecified M54.5 ; Acute cystitis with hematuria N30.01 ; Neuroforaminal stenosis of spine M99.89 ; Bilateral acute serous otitis media, recurrence not specified H65.03 ; Mixed hyperlipidemia E78.2 ; Essential hypertension I10 ; Immunization counseling Z71.89 and Encounter for immunization Z23 [facility] [address] 20152- 5472 Apr, Neck pain M54.2 [facility] [address] [address] 8329 Mar, Neuroforaminal stenosis of spine M99.89 [facility] [address], [place] [address] 9253 Mar, Pharyngitis due to other organism J02.8 [facility] [id number] [place] [address] 52498- 1268 Feb, Neuroforaminal stenosis of spine M99.89 [facility] [address], [place] [address] 3761 Feb, UTI (urinary tract infection) N39.0 [facility] [address] [place] [address] 69885- 8201 Feb, Recent urinary tract infection Z87.440 ; Neuroforaminal stenosis of spine M99.89 ; Neck pain M54.2 ; 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 and Recurrent UTI N39.0 [facility] [address], [place] [address]- 2160 Feb, [facility] [id number] [place] [address] 01581- 3914 Jan, Neuroforaminal stenosis of spine M99.89 [facility] [address], [place] [address]- 9477 Dec, Neuroforaminal stenosis of spine M99.89 [facility] [address], [place] [address]- 6166 18 Dec, 2016 Acute seasonal allergic rhinitis due to pollen J30.1 [facility] [address], [place] [address]- 5250 08 Dec, 2016 [facility] [address], [place] [address]- 4467 08 Dec, 2016 Acute seasonal allergic rhinitis, unspecified trigger J30.2 ; Allergic conjunctivitis of both eyes H10.13 and Dysfunction of both eustachian tubes H69.83 [place] [id number] [place] [address] 86644- 5954 Dec, [facility] [id number] [place] [address] 32394- 7670 Dec, Nevus D22.9 [facility] [id number] [place] [address] 87928- 0172 Nov, 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 and Neuroforaminal stenosis of spine M99.89 [facility] [id number] [place] [address] 84291- 3457 Nov, Neuroforaminal stenosis of spine M99.89 ; Essential hypertension I10 ; Mixed hyperlipidemia E78.2 ; Hypokalemia E87.6 ; Neck pain M54.2 and Nevus D22.9 [facility] [place] [id number] [place] [address] 68589- 6133 Oct, Neuroforaminal stenosis of spine M99.89 [facility] [id number] [place] [address] 17116- 6162 Sep, Neuroforaminal stenosis of spine M99.89 [facility] [id number] [place] [address] 71960- 9854 Sep, [facility] [place] [id number] [place] [address] 81407- 4515 August, [facility] [id number] [place] [address] 00232- 4428 August, Neck pain M54.2 and Neuroforaminal stenosis of spine M99.89 [facility] [id number] [place] [address] 63283- 4752 August, Routine gynecological examination Z01.419 and Screening breast examination Z12.39 [facility] [place] [id number] [place] [address] 51481- 5869 Jul, [place] [address], [place] [address]- 1022 Jul, [facility] [id number] [place] [address] 07397- 6411 Jul, Neuroforaminal stenosis of spine M99.89 [facility] [id number] [place] [address] 44112- 8180 Jul, [facility] [id number] [place] [address] 05359- 7091 Jul, 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 [facility] [id number] [place] [address] 01686- 0831 Jul, [facility] [id number] [place] [address] 22595- 3894 Jul, [facility] [id number] [place] [address] 18216- 0203 Jun, Neuroforaminal stenosis of spine M99.89 [facility] [address], [place] [address]- 1283 Jun, Uterine leiomyoma, unspecified location D25.9 and Allergic reaction caused by a drug, initial encounter T78.40XA [facility] [address], [place] [address]- 5087 Jun, [facility] [id number] [place] [address] 06481- 2486 May, UTI symptoms R39.9 and Pain of right sacroiliac joint M53.3 [facility] [id number] [place] [address] 19908- 3689 May, Neuroforaminal stenosis of spine M99.89 [facility] [address] [address]- 2069 May, [facility] [id number] [place] [address] 35852- 5904 May, Acute mucoid otitis media of left ear H65.112 and Acute non- recurrent maxillary sinusitis J01.00 [facility] [address] 43227- 3951 May, Acute bacterial conjunctivitis of both eyes H10.33 ; Left arm pain M79.602 and Hypokalemia E87.6 [facility] [address] 05813- 2583 Apr, [place] [address] 96581- 7662 Apr, Neuroforaminal stenosis of spine M99.89 ; Neck pain M54.2 ; 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 ; Mixed hyperlipidemia E78.2 ; Essential hypertension I10 and Hypokalemia E87.6 [facility] [address] 65003- 3572 Mar, Oral candidiasis B37.0 ; Neuroforaminal stenosis of spine M99.89 ; Neck pain M54.2 and 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 [facility] [address] 52869- 0700 Feb, [place] [id number] [place] [address] 85129- 9234 Feb, [facility] [address] 58475- 0678 Feb, UTI (urinary tract infection) N39.0 [facility] [address] 43387- 6350 Feb, Dysuria R30.0 [facility] [facility] [address] 95542- 5076 Feb, Dysuria R30.0 [facility] [place] [id number] [place] [address] 82186- 2946 Feb, Neuroforaminal stenosis of spine M99.89 ; Neck pain M54.2 ; Essential hypertension I10 ; 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 ; Dysuria R30.0 ; Abnormal MRI, shoulder R93.8 and Acute cystitis without hematuria N30.00 [facility] [id number] [place] [address] 17890- 7562 Jan, [facility] [id number] [place] [address] 85493- 3053 Jan, [facility] [id number] [place] [address] 17516- 9423 Jan, [facility] [id number] [place] [address] 45048- 2028 Jan, Abnormal MRI R93.8 [facility] [id number] [place] [address] 78331- 7518 29 Dec, 2015 [facility] [address] 31456 -4066 15 Dec, 2015 Acute pain of left shoulder M25.512 [facility] [id number] [place] [address] 34762- 8105 09 Dec, 2015 [facility] [id number] [place] [address] 90033- 9906 08 Dec, 2015 [facility] [id number] [place] [address] 39325- 0228 07 Dec, 2015 Acute pain of left shoulder M25.512 [facility] [id number] [place] [address] 94984- 7273 Nov, [facility] [id number] [place] [address] 34213- 6687 Nov, Neuroforaminal stenosis of spine M99.89 ; Neck pain M54.2 ; Abnormal mammogram R92.8 ; Essential hypertension I10 and 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 [facility] [id number] [place] [address] 39635- 9799 Nov, [facility] [address] [id number] [address]- 9199 Oct, Acute stress disorder F43.0 [facility] [address] [id number] [place] [address]- 6766 Oct, [facility] [address] [facility] [id number], [place] [address]- 1251 Oct, [facility] [address] [facility] [id number], [place] [address]- 2542 Oct, [facility] [address] [facility] [id number], [place] [address]- 7901 Sep, [facility] [address] [facility] [id number], [place] [address]- 0673 August, [facility] [address] [facility] [id number], [place] [address]- 8394 Jul, Neuroforaminal stenosis of spine M99.89 ; Neck pain M54.2 ; Abnormal mammogram R92.8 and Essential hypertension I10 [facility] [address] [facility] [id number], [place] [address]- 6987 Jul, [facility] [address] [facility] [id number], [place] [address]- 4340 Jul, [facility] [address] [facility] [id number], [place] [address]- 7353 Jul, Abnormal mammogram R92.8 [facility] [address] [facility] [id number], [place] [address]- 0825 Jul, [facility] [address] [facility] [id number], [place] [address]- 6826 Jul, UTI (urinary tract infection) N39.0 [facility] [address] [facility] [id number], [place] [address]- 4863 Jul, Dysuria R30.0 [facility] [address] [id number], [place] [address]- 0772 Jun, [facility] [address], [place] [address]- 0573 Jun, [facility] [place] [id number] [place] [address] 19312- 9688 Jun, Hypokalemia E87.6 and Hematuria R31.9 [facility] [id number] [place] [address] 42822- 6431 Jun, Hypokalemia E87.6 [facility] [id number] [place] [address] 82509- 3751 Jun, [facility] [id number] [place] [address] 77178- 0877 Jun, Hypokalemia E87.6 [facility] [id number] [place] [address] 94746- 0905 Jun, Hypokalemia E87.6 [facility] [id number] [place] [address] 83310- 5147 15 Jun, 2015 Neuroforaminal stenosis of spine M99.89 ; Hypokalemia E87.6 ; Neck pain M54.2 ; Essential hypertension I10 ; Mixed hyperlipidemia E78.2 and Screening breast examination Z12.39 [facility] [address] [place] [address] 52479- 3199 08 Jun, 2015 Dysuria R30.0 ; UTI (urinary tract infection) N39.0 and Hematuria R31.9 [facility] [address], [place] [address]- 7577 May, [place] [id number] [place] [address] 16953- 8069 May, High risk sexual behavior Z72.51 ; Hypokalemia E87.6 ; Neuroforaminal stenosis of spine M99.89 ; Neck pain M54.2 ; Essential hypertension I10 ; Mixed hyperlipidemia E78.2 ; STD exposure Z20.2 and Concern about STD in female without diagnosis Z71.1 [facility] [address] [place] [address] 50474- 7768 16 May, 2015 Neuroforaminal stenosis of spine M99.89 ; Neck pain M54.2 ; Hypokalemia E87.6 ; Essential hypertension I10 and Mixed hyperlipidemia E78.2 [facility] [id number] [place] [address] 40266- 7542 11 May, 2015 [facility] [id number] [place] [address] 86327 -0567 08 May, 2015 High risk sexual behavior Z72.51 ; STD exposure Z20.2 and Concern about STD in female without diagnosis Z71.1 [facility] [id number] [place] [address] 95643- 9056 05 May, 2015 [facility] [id number] [place] [address] 65402- 9515 Apr, Neuroforaminal stenosis of spine M99.89 ; Mixed hyperlipidemia E78.2 ; Essential hypertension I10 and Hypokalemia E87.6 [facility] [id number] [place] [address] 02285- 8997 Mar, [facility] [id number] [place] [address] 64244- 0699 Mar, Hypokalemia E87.6 [facility] [id number] [place] [address] 89604- 2813 Mar, Neuroforaminal stenosis of spine M99.89 ; Mixed hyperlipidemia E78.2 ; Neck pain M54.2 ; Essential hypertension I10 ; Abnormal fasting glucose R73.09 ; Hypokalemia E87.6 and Constipation K59.00 [facility] [place] [id number] [place] [address] 77630- 9832 Feb, Neuroforaminal stenosis of spine M99.89 ; Mixed hyperlipidemia E78.2 ; Neck pain M54.2 ; Essential hypertension I10 ; Abnormal fasting glucose R73.09 ; Hypokalemia E87.6 and Constipation K59.00 [facility] [place] [id number] [place] [address] 20364- 2069 Feb, Elevated fasting blood sugar R73.01 [facility] [facility] [address] 58465- 6832 Feb, Elevated fasting blood sugar R73.01 [facility] [address] 50125- 3332 Feb, Hair loss L65.9 [facility] [facility] [address] 46023- 6824 Feb, Sinusitis J32.9 ; Essential hypertension I10 and Hair loss L65.9 [facility] [place] [address] 71366- 8461 Jan, [place] [facility] [address] 72228- 7187 Jan, Essential hypertension I10 ; Neuroforaminal stenosis of spine M99.89 ; Neck pain M54.2 ; Mixed hyperlipidemia E78.2 and Anxiety F41.9 [facility] [facility] [address] 52808- 7279 Jan, [place] [id number] [place] [address] 43959- 9000 Jan, Mixed hyperlipidemia E78.2 ; Essential (primary) hypertension I10 ; Strain of muscle, fascia and tendon at neck level, subsequent encounter S16.1XXD and Tension-type headache, unspecified, not intractable G44.209 [facility] [id number] [place] [address] 45686- 2370 Dec, Lumbar back pain 724.2 and Neuroforaminal stenosis of spine 724.00 [facility] [address] 58253- 3742 Nov, [place] [address] 48008- 7090 Nov, Lumbar back pain 724.2 and Neuroforaminal stenosis of spine 724.00 [facility] [id number] [place] [address] 46021- 1509 Nov, Edema 782.3 ; Lumbar back pain 724.2 ; Essential hypertension, benign 401.1 ; Hyperlipemia 272.4 ; Neuroforaminal stenosis of spine 724.00 and Post-concussion headache 339.20 [facility] [address] 23229- 5601 Nov, [facility] [address] 60799- 4790 Nov, [facility] [address] 89687- 8248 Oct, Essential hypertension, benign 401.1 [facility] [address] 86947- 1000 Oct, Edema 782.3 ; Lumbar back pain 724.2 ; Essential hypertension, benign 401.1 ; Hyperlipemia 272.4 ; Neuroforaminal stenosis of spine 724.00 and Post-concussion headache 339.20 [facility] [id number] [place] [address] 25524- 0268 Oct, [facility] [id number] [place] [address] 33503- 5921 Oct, Edema 782.3 [facility] [address] 97260- 4660 Oct, Lumbar back pain 724.2 [facility] [id number] [place] [address] 28239- 7146 Oct, Cervicalgia 723.1 ; Lumbar back pain 724.2 and High risk medication use V58.69 [facility] [id number] [place] [address] 04775- 3672 Sep, [facility] [address] 76526- 4650 Sep, Lumbar strain 847.2 [facility] [id number] [place] [address] 61550- 4556 August, Edema 782.3 and Eustachian tube dysfunction 381.81 [facility] [id number] [address] August, [facility] [id number] [place] [address] 2546 August, Eustachian tube dysfunction 381.81 [facility] [id number] [place] [address] Jul, Otalgia 388.70 and Otitis media 382.9 [facility] [id number] [address] Jul, [facility] [id number] [address] Jul, [facility] [id number] [address] Jul, [facility] [id number] [address] Jul, [facility] [id number] [address] Jul, [facility] [id number] [address] Jun, [facility] [id number] [address] Jun, [facility] [id number] [address] Jun, [facility] [id number] [address] May, [facility] [id number] [address] May, [facility] [place] [facility] [address] [id number] [place] [address] May, 2014 [facility] [place] [facility] [address] [id number] [place] [address] May, 2014 [facility] [place] [facility] [address] [id number] [place] [address] May, 2014 [facility] [place] [facility] [address] [id number] [place] [address] May, 2014 [facility] [place] [facility] [address] [id number] [place] [address] May, [facility] [place] [facility] [address] [id number] [place] [address] May, 2014 [facility] [facility] [address] [id number] [place] [address] May, [facility] [place] [facility] [address] [id number] [place] [address] May, [facility] [place] [facility] [address] [id number] [place] [address] Apr, [facility] [place] [facility] [address] [id number] [place] [address] Apr, [facility] [place] [facility] [address] [id number] [place] [address] 1273 Apr, [facility] [place] [facility] [address] [id number] [place] [address] Apr, [facility] [place] [facility] [address] [id number] [place] [address]- 4[address] Apr, [facility] [place] [facility] [address] [id number] [place] [address]- 8408 Apr, [facility] [place] [address] [id number] [place] [address]- 7250 Apr, [facility] [place] [facility] [address] [id number] [place] [address]- 4099 Apr, [facility] [address] [id number] [place] [address] Apr, [facility] [address] [id number] [place] [address] 4847 Apr, [facility] [address] [id number] [place] [address] Apr, [facility] [place] [facility] [address] [id number] [place] [address]- 3028 Apr, [facility] [address] [id number] [place] [address]- [address] Apr, [facility] [address] [id number] [place] [address]- 29[address] Apr, [facility] [address] [id number] [place] [address]- 3090 Apr, [facility] [address] [id number] [place] [address]- 7629 Mar, [facility] [address] [id number] [place] [address]- 1729 Mar, [facility] [address] [id number] [place] [address]- [address]284 Mar, [facility] [address] [id number] [place] [address]- 3339 Mar, [facility] [address] [id number] [place] [address]- 8898 Feb, [facility] [place] [facility] [address] [id number] [place] [address]- 1319 Feb, [facility] [address] [id number] [place] [address]- 6366 Feb, [facility] [address] [id number] [place] [address]- 0717 Feb, [facility] [place] [facility] [address] [id number] [place] [address]- 4789 Jan, [facility] [place] [facility] [address] [id number] [place] [address]- 1008 Jan, [facility] [place] [address] [id number] [place] [address]- 4188 Jan, [facility] [place] [facility] [address] [id number] [place] [address]- 2209 Jan, [facility] [address] [id number] [place] [address] Jan, [facility] [address] [id number] [place] [address]- 0974 Jan, [facility] [place] [facility] [address] [id number] [place] [address]- 3563 Jan, [facility] [place] [address] [id number] [place] [address]- 5330 Jan, [facility] [address] [id number] [place] [address]- 7266 Dec, [facility] [place] [address] [id number] [place] [address]- 5808 Dec, [facility] [address] [id number] [place] [address]- 1109 Dec, [facility] [place] [address] [id number] [place] [address]- 3150 Dec, [facility] [place] [address] [id number] [place] [address]- 0141 Oct, [facility] [place] [address] [id number] [place] [address]- 0882 Oct, [facility] [place] [address] [id number] [place] [address]- 2420 Oct, [facility] [place] [facility] [address] [id number] [place] [address]- 7183 Oct, [facility] [place] [facility] [address] [id number] [place] [address]- 4348 Oct, [facility] [address] [id number] [place] [address]- 0923 Oct, [facility] [place] [address] [id number] [place] [address]- 4083 Oct, [facility] [place] [address] [id number] [place] [address] 1918 Oct, [facility] [address] [id number] [place] [address]- 8709 Sep, [facility] [address] [id number] [place] [address]- 6758 Sep, [facility] [place] [address] [id number] [place] [address]- 4199 Sep, [facility] [address] [id number] [place] [address]- 7990 Sep, [facility] [address] [id number] [place] [address]- 4838 Sep, [facility] [address] [id number] [place] [address]- 3840 Sep, [facility] [address] [id number] [place] [address]- 8937 Sep, [facility] [address] [id number] [place] [address]- 9363 Sep, [facility] [address] [id number] [place] [address]- 9162 Sep, [facility] [address] [id number] [place] [address]- 0317 Sep, [facility] [address] [id number] [place] [address]- 4748 August, [facility] [address] [id number] [place] [address]- 8083 August, [facility] [address] [id number] [place] [address]- 1439 August, [facility] [address] [id number] [place] [address]- 8664 August, [facility] [address] [id number] [place] [address]- 9581 August, [facility] [address] [id number] [place] [address]- 8746 August, [facility] [address] [id number] [place] [address]- 8083 August, [facility] [address] [id number] [place] [address]- 3428 August, [facility] [address] [id number] [place] [address]- 2904 August, [facility] [address] [id number] [place] [address]- 9741 August, [facility] [address] [id number] [place] [address]- 7358 August, [facility] [address] [id number] [place] [address]- 8380 August, [facility] [address] [id number] [place] [address]- 9835 Jul, [facility] [address] [id number] [place] [address]- 1053 Jul, [facility] [address] [id number] [place] [address]- 7518 Jul, [facility] [address] [id number] [place] [address]- 1662 Jul, [facility] [address] [id number] [place] [address]- 0943 Jul, [facility] [address] [id number] [place] [address]- 1487 Jul, [facility] [address] [id number] [place] [address]- 0163 Jun, [facility] [address] [id number] [place] [address]- 3341 Jun, [facility] [address] [id number] [place] [address]- 0369 May, [facility] [address] [id number] [place] [address]- 9816 May, [facility] [address] [id number] [place] [address]- 9051 Apr, [facility] [address] [id number] [place] [address]- 9860 Apr, [facility] [address] [id number] [place] [address]- 8412 Apr, [facility] [address] [id number] [place] [address]- 6156 Apr, [facility] [address] [id number] [place] [address]- 3392 Apr, [facility] [address] [id number], [place] [address]- 9524 Apr, [facility] [address] [id number], [place] [address]- 6404 Apr, [facility] [address] [id number] [place] [address]- 4711 Apr, [facility] [address] [id number], [place] [address]- 0539 Apr, [facility] [address] [id number] [place] [address]- 8018 Apr, [facility] [address] [id number] [place] [address]- 8848 Apr, [facility] [address] [id number] [place] [address]- 6491 Apr, [facility] [address] [id number] [place] [address]- 5877 Apr, [facility] [address] [id number] [place] [address]- 4408 Mar, [facility] [address] [id number] [place] [address]- 4536 Mar, [facility] [address] [id number] [place] [address]- 2659 Mar, [facility] [address] [id number] [place] [address]- 4756 Mar, [facility] [address] [id number] [place] [address]- 9289 Feb, [facility] [address] [id number] [place] [address]- 8203 Feb, [facility] [address] [id number] [place] [address]- 2290 Feb, [facility] [address] [facility] [id number] [place] [address]- 0902 Feb, [facility] [address] [id number] [place] [address]- 9276 14 Jan, 2013 [facility] [address] [id number] [place] [address]- 3951 14 Jan, 2013 [facility] [address] [id number] [place] [address]- 1129 11 Jan, 2013 [facility] [address] [id number] [place] [address]- 1948 11 Jan, 2013 [facility] [address] [id number] [place] [address]- 5627 Jan, [facility] [address] [id number] [place] [address]- 9957 Jan, [facility] [address] [id number] [place] [address]- 5028 Jan, [facility] [address] [id number] [place] [address]- 5101 Jan, [facility] [address] [id number] [place] [address]- 6171 Jan, [facility] [address] [id number] [place] [address]- 3334 26 Dec, 2012 [facility] [address] [id number] [place] [address]- 8243 16 Dec, 2012 [facility] [address] [id number] [place] [address]- 7243 16 Dec, 2012 [facility] [address] [id number] [place] [address]- 2890 Dec, [facility] [address] [id number] [place] [address]- 4192 Nov, [facility] [address] [id number], [place] [address]- 2648 Nov, [facility] [address] [id number] [place] [address]- 2631 Nov, [facility] [address] [id number], [place] [address]- 3492 Nov, [facility] [address] [id number] [place] [address]- 7493 Oct, [facility] [address] [id number] [place] [address]- 2349 Sep, [facility] [address] [id number], [place] [address]- 1683 August, [facility] [address] [id number], [place] [address]- 1519 August, [facility] [address] [id number] [place] [address]- 1216 August, [facility] [address] [id number] [place] [address]- 1416 August, [facility] [address] [id number] [place] [address]- 6008 August, [facility] [address] [id number] [place] [address]- 8271 August, [facility] [address] [id number] [place] [address]- 8652 August, [facility] [address] [id number] [place] [address]- 5883 August, [facility] [address] [id number] [place] [address]- 0293 August, [facility] [address] [id number] [place] [address]- 9432 August, [facility] [address] [id number] [place] [address]- 5201 August, [facility] [address] [id number] [place] [address]- 3991 August, [facility] [address] [id number] [place] [address]- 7806 Jul, [facility] [address] [id number] [place] [address]- 8252 Jul, [facility] [address] [id number] [place] [address]- 1591 18 Jul, 2012 [facility] [address] [id number] [place] [address]- 3545 15 Jul, 2012 [facility] [address] [id number] [place] [address]- 1865 Jul, [facility] [address] [id number] [place] [address]- 3766 08 Jul, 2012 [facility] [address] [id number] [place] [address]- 4433 Jul, [facility] [address] [id number] [place] [address]- 9179 Jul, [facility] [facility] [address] [id number] [place] [address]- 1661 Jul, [facility] [facility] [address] [id number] [place] [address]- 4640 Jul, [facility] [facility] [address] [id number] [place] [address]- 3414 Jul, [facility] [address] [id number] [place] [address]- 8611 Jun, [facility] [address] [id number] [place] [address]- 2375 Jun, [facility] [address] [id number] [place] [address]- 9291 Jun, [facility] [address] [id number] [place] [address]- 0948 Jun, [facility] [address] [id number] [place] [address]- 5976 May, [facility] [address] [id number] [place] [address]- 3555 14 May, 2012 [facility] [address] [id number] [place] [address]- 0409 05 May, 2012 [facility] [address] [id number] [place] [address]- 8530 04 May, 2012 [facility] [address] [id number] [place] [address]- 9094 04 May, 2012 [facility] [place] [facility] [address] [id number] [place] [address]- 2546 May, [facility] [address] [id number] [place] [address]- 7676 Apr, [facility] [place] [facility] [address] [id number] [place] [address]- 6216 Apr, [facility] [place] [facility] [address] [id number] [place] [address]- 6640 Apr, [facility] [place] [facility] [address] [id number] [place] [address]- 5621 Apr, [facility] [place] [facility] [address] [id number] [place] [address]- 0122 15 Mar, 2012 [facility] [place] [facility] [address] [id number] [place] [address]- 2013 Mar, [facility] [place] [facility] [address] [id number] [place] [address]- 2920 Mar, [facility] [place] [facility] [address] [id number] [place] [address]- 0799 Mar, [facility] [place] [facility] [address] [id number] [place] [address]- 2320 Mar, [facility] [place] [facility] [address] [id number] [place] [address]- 6334 Mar, [facility] [place] [facility] [address] [id number] [place] [address]- 5790 Mar, [facility] [place] [facility] [address] [id number] [place] [address]- 8230 Feb, [facility] [place] [facility] [address] [id number] [place] [address]- 5950 Feb, [facility] [place] [facility] [address] [id number] [place] [address]- 4055 Feb, [facility] [place] [facility] [address] [id number] [place] [address]- 7228 Feb, [facility] [place] [facility] [address] [id number] [place] [address]- 4736 Jan, [facility] [place] [facility] [address] [id number] [place] [address]- 4194 Jan, [facility] [place] [facility] [address] [id number] [place] [address]- 1976 Jan, [facility] [place] [facility] [address] [id number] [place] [address]- 1205 Jan, [facility] [place] [facility] [address] [id number] [place] [address]- 9036 Jan, [facility] [place] [facility] [address] [id number] [place] [address]- 4221 Jan, [facility] [place] [facility] [address] [id number] [place] [address]- 8244 Dec, [facility] [place] [facility] [address] [id number] [place] [address]- 5206 Dec, [facility] [address] [id number] [place] [address]- 0386 Nov, [facility] [place] [facility] [address] [id number] [place] [address]- 6724 Sep, [facility] [place] [facility] [address] [id number] [place] [address]- 6035 August, [facility] [place] [facility] [address] [id number] [place] [address]- 8043 August, [facility] [place] [facility] [address] [id number] [place] [address]- 8264 August, [facility] [place] [facility] [address] [id number] [place] [address]- 8253 August, [facility] [place] [facility] [address] [id number] [place] [address]- 5196 August, [facility] [place] [facility] [address] [id number] [place] [address]- 2805 Jun, [facility] [place] [facility] [address] [id number] [place] [address]- 5105 Jun, [facility] [place] [facility] [address] [id number] [place] [address]- 0864 Apr, [facility] [place] [facility] [address] [id number] [place] [address]- 7633 Apr, [facility] [place] [facility] [address] [id number] [place] [address]- 6063 Mar, [facility] [place] [facility] [address] [id number] [place] [address]- 8542 Feb, [facility] [place] [facility] [address] [id number] [place] [address]- 2085 Feb, [facility] [place] [facility] [address] [id number] [place] [address]- 6860 Feb, [facility] [place] [facility] [address] [id number] [place] [address]- 5303 17 Jan, 2011 [facility] [place] [facility] [address] [id number] [place] [address]- 2105 15 Jan, 2011 [facility] [place] [facility] [address] [id number] [place] [address]- 3478 15 Jan, 2011 [facility] [place] [facility] [address] [id number] [place] [address]- 8292 Jan, [facility] [place] [facility] [address] [id number], [place] [address]- 2403 15 May, 2010 [facility] [place] [facility] [address] [id number] [place] [address]- 6494 Mar, [facility] [place] [facility] [address] [id number] [place] [address]- 5753 Oct, [facility] [place] [facility] [address] [id number] [place] [address]- 4566 14 Sep, 2009 [facility] [place] [facility] [address] [facility] [id number], [place] [address]- 2826 Mar, [facility] [address] [facility] [id number], [place] [address]- 3013 Jan, [facility] [address] [facility] [id number], [place] [address]- 5919 Jan, [facility] [address] [facility] [id number], [place] [address]- 6[address] May, IMMUNIZATIONS No Known Immunizations SOCIAL HISTORY Never Assessed REASON FOR VISIT f/u tests-mpolshakMA PLAN OF CARE Activity Details Follow Up 3 Months Reason:HTN VITAL SIGNS Height 62 in 2017-12-07 Weight 182.3 lbs 2017-12-07 Temperature 97.4 degrees Fahrenheit 2017-12-07 Heart Rate 78 bpm 2017-12-07 Respiratory Rate 18 2017-12-07 BMI 33.34 kg/m2 2017-12-07 Blood pressure systolic 128 mmHg 2017-12-07 Blood pressure diastolic 80 mmHg 2017-12-07 MEDICATIONS Medication Instructions Dosage Frequency Start Date End Date Duration Status Klor-Con 10 10 MEQ Orally twice a day 1 tablet 12h 28 Feb, 2018 30 days Active Amlodipine Besylate 5 mg Orally Once a day 1 tablet 24h 30 days Active Naproxen 500 mg Orally every 12 hrs 1 tablet with food or milk as needed 12h Active Pravastatin Sodium 20 mg Orally Once a day TAKE ONE TABLET BY MOUTH AT BEDTIME 24h 30 Active Triamterene-HCTZ 37.5-25 MG Orally Once a day 1 tablet in the morning 24h 30 Active Meclizine HCl 25 MG Orally Once a day 1 tablet as needed 24h Active Hydrocodone-Acetaminophen 5-325 MG Orally 3 -4 times a day prn. must last 4 weeks 1 tablet as needed Nov, Dec, 28 days Active Cyclobenzaprine HCl 10 mg Orally Three times a day 1 tablet as needed 8h Active RESULTS No Results PROCEDURES No Known procedures INSTRUCTIONS MEDICATIONS ADMINISTERED No Known Medications MEDICAL (GENERAL) HISTORY Type Description Date Medical History hypertension Medical History Colposcopy with loop electrode excision of the cervix was performed 06/2012, mild squamous atypia (no definite dyplasia). Performed at [facility] Dr. Joy. Medical History Acute suppurative [...]
--- OUTSIDE RECORDS SUMMARY | 2018-06-10 04:44 | XMS REPORT ---
Author Author BETI STAUFFER [facility] Address [address] [place] [address] Care Team Providers Care Staff Air Tactical Officer Name Role Phone BETI STAUFFER Unavailable PROBLEMS Type Condition ICD9-CM Code AND04-JZ Code Onset Dates Condition Status SNOMED Code Problem Hematuria, unspecified type R31.9 Active 36818672 Problem Anxiety F41.9 Active 12369827 Problem Abnormal renal ultrasound R93.429 Active 19442222131381344 Problem Abnormal glucose R73.09 Active 330869133 Problem 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 Active 469189322 Problem Hypokalemia E87.6 Active 34422548 Problem Neck pain M54.2 Active 93060667 Problem Neuroforaminal stenosis of spine M99.89 Active 263580473870 Problem Mixed hyperlipidemia E78.2 Active 55261793 Problem Essential hypertension I10 Active 54366603 ALLERGIES No Information ENCOUNTERS Encounter Location Date Diagnosis [place] [address] 87228- [address]50 08 Feb, 2018 [place] [address] 36618- 2516 13 Dec, 2017 Lateral epicondylitis, right elbow M77.11 [place] [address] 66303- 6002 11 Dec, 2017 Allergic rhinitis due to pollen, unspecified seasonality J30.1 and Allergic conjunctivitis of both eyes H10.13 [place] [address] 57592- 7422 10 Dec, 2017 Neuroforaminal stenosis of spine M99.89 [place] [address] [place] [id number] [place] [address] 21715- 3980 06 Dec, 2017 Mixed hyperlipidemia E78.2 [place] [address] [place] [id number] [place] [address] 93317- 3983 Dec, Abnormal glucose R73.09 ; Abnormal renal ultrasound R93.429 ; Dysuria R30.0 ; Cystitis without hematuria N30.90 ; Hypokalemia E87.6 ; Mixed hyperlipidemia E78.2 and Hematuria, unspecified type R31.9 [place] [address] [place] [id number] [place] [address] 86604- 5812 Nov, Hypokalemia E87.6 ; Mixed hyperlipidemia E78.2 and Hematuria , unspecified type R31.9 [place] [address] [place] [id number] [place] [address] 73340- 0048 Nov, [place] [address] 49273- 9524 Nov, Hypokalemia E87.6 [place] [address] 09457- 9150 Nov, [place] [address] [place] [id number] [place] [address] 16470- 9500 Nov, Abnormal renal ultrasound R93.429 [place] [address] 12157- 6236 Nov, Abnormal renal ultrasound R93.429 [place] [address] [place] [id number] [place] [address] 46450- 3873 Nov, Hematuria, unspecified type R31.9 and Neuroforaminal stenosis of spine M99.89 [place] [address] [place] [id number] [place] [address] 74423- 2058 Nov, Dysuria R30.0 [place] [address] 77518- 7089 Oct, Lateral epicondylitis, right elbow M77.11 [place] [address] [place] [id number] [place] [address] 90369- 7233 Oct, Neuroforaminal stenosis of spine M99.89 ; Visit for TB skin test Z11.1 and Essential hypertension I10 [place] [address] [place] [id number] [place] [address] 97870- 4326 16 Oct, 2017 [place] [address] [place] [id number] [place] [address] 36752- 9563 Oct, Neuroforaminal stenosis of spine M99.89 [place] [address] 55147- 2997 10 Oct, 2017 Visit for TB skin test Z11.1 [place] [address] [place] [id number] [place] [address] 50821- 9265 05 Oct, 2017 Cystitis without hematuria N30.90 [place] [address] [place] [id number] [place] [address] 58561- 6212 28 Sep, 2017 Screening breast examination Z12.39 [place] [address] 12315- 5473 26 Sep, 2017 Dysuria R30.0 and Cystitis without hematuria N30.90 [place] [address] [place] [id number] [place] [address] 55911- 2705 14 Sep, 2017 Essential hypertension I10 and Neuroforaminal stenosis of spine M99.89 [place] [address] [place] [id number] [place] [address] 80069- 3686 Sep, Abnormal glucose R73.09 [place] [address] 29241- 6341 August, Lateral epicondylitis, right elbow M77.11 [place] [address] [place] [id number] [place] [address] 65708- 1525 August, Screen for STD (sexually transmitted disease) Z11.3 [place] [address] [place] [id number] [place] [address] 12196- 9079 August, Neuroforaminal stenosis of spine M99.89 ; Mixed hyperlipidemia E78.2 ; Elevated fasting glucose R73.01 ; Screening mammogram, encounter for Z12.31 and Encounter for well woman exam without gynecological exam Z00.00 [facility] [address] [place] [id number] [place] [address] 81231- 5837 August, Neuroforaminal stenosis of spine M99.89 [facility] [address] [place] [id number] [place] [address] 43891- 1445 August, Essential hypertension I10 ; Hypokalemia E87.6 and Mixed hyperlipidemia E78.2 [place] [address] 48058- 5657 Jul, [place] [address] [place] [id number] [place] [address] 16608- 2836 Jul, Neuroforaminal stenosis of spine M99.89 [place] [address] [place] [id number] [place] [address] 54218- 5871 Jul, Lateral epicondylitis, right elbow M77.11 [place] [address] 89999- 5860 Jul, [place] [address] [place] [id number] [place] [address] 99178- 9534 Jun, High ankle sprain of right lower extremity, initial encounter S93.431A [place] [address] [place] [id number] [place] [address] 66113- 0840 Jun, Essential hypertension I10 [place] [address] [place] [id number] [place] [address] 97560- 6122 Jun, [facility] [address] [place] [id number] [place] [address] 99921- 2364 Jun, [place] [address] [place] [id number] [place] [address] 52079- 2609 Jun, Neuroforaminal stenosis of spine M99.89 [facility] [address] [place] [id number] [place] [address] 22631- 9641 Jun, Pain of right upper extremity M79.601 and Essential hypertension I10 [place] [address] [place] [id number] [place] [address] 58503- 2856 Jun, [place] [address] [place] [id number] [place] [address] 39152- 8801 Jun, Dysuria R30.0 ; Acute cystitis with hematuria N30.01 and Screen for STD (sexually transmitted disease) Z11.3 [place] [address] [place] [id number] [place] [address] 94081- 4101 May, 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 [place] [address] [place] [id number] [place] [address] 29938- 9880 May, Essential hypertension I10 [place] [id number] [place] [address] 61516- 2441 May, Neuroforaminal stenosis of spine M99.89 [place] [id number] [place] [address] 14041- 4605 Apr, Allergic reaction, initial encounter T78.40XA [place] [address] [place] [id number] [place] [address] 06596- 9950 Apr, Low back pain, unspecified back pain laterality, unspecified chronicity, with sciatica presence unspecified M54.5 ; Acute cystitis with hematuria N30.01 ; Neuroforaminal stenosis of spine M99.89 ; Bilateral acute serous otitis media, recurrence not specified H65.03 ; Mixed hyperlipidemia E78.2 ; Essential hypertension I10 ; Immunization counseling Z71.89 and Encounter for immunization Z23 [place] [address] [place] [id number] [place] [address] 95266- 5995 Apr, Neck pain M54.2 [place] [id number] [place] [address] 90290- 4465 Mar, Neuroforaminal stenosis of spine M99.89 [place] [address] [place] [id number] [place] [address] 24053- 2327 Mar, Pharyngitis due to other organism J02.8 [place] [address] [place] [id number] [place] [address] 12820- 7286 Feb, Neuroforaminal stenosis of spine M99.89 [facility] [address] [place] [id number] [place] [address] 43484- 9899 Feb, UTI (urinary tract infection) N39.0 [facility] [address] [place] [id number] [place] [address] 47176- 3116 Feb, Recent urinary tract infection Z87.440 ; Neuroforaminal stenosis of spine M99.89 ; Neck pain M54.2 ; 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 and Recurrent UTI N39.0 [facility] [address] 03477- 6358 Feb, [facility] [address] [place] [id number] [place] [address] 31349- 6415 Jan, Neuroforaminal stenosis of spine M99.89 [facility] [address] 78575- 8068 Dec, Neuroforaminal stenosis of spine M99.89 [facility] [address] [place] [id number] [place] [address] 65489- 8931 Dec, Acute seasonal allergic rhinitis due to pollen J30.1 [place] [address] [place] [id number] [place] [address] 99630- 1860 Dec, [facility] [address] 94447- 4587 Dec, Acute seasonal allergic rhinitis, unspecified trigger J30.2 ; Allergic conjunctivitis of both eyes H10.13 and Dysfunction of both eustachian tubes H69.83 [facility] [address] [place] [id number] [place] [address] 13631- 6577 Dec, [facility] [address] [place] [id number] [place] [address] 99075- 4564 06 Dec, 2016 Nevus D22.9 [facility] [address] 81110- 0364 Nov, 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 and Neuroforaminal stenosis of spine M99.89 [facility] [address] [place] [id number] [place] [address] 22011- 1128 Nov, Neuroforaminal stenosis of spine M99.89 ; Essential hypertension I10 ; Mixed hyperlipidemia E78.2 ; Hypokalemia E87.6 ; Neck pain M54.2 and Nevus D22.9 [facility] [address] [place] [id number] [place] [address] 56653- 9116 Oct, Neuroforaminal stenosis of spine M99.89 [facility] [address] [place] [id number] [place] [address] 90234- 2581 Sep, Neuroforaminal stenosis of spine M99.89 [facility] [address] [place] [id number] [place] [address] 32794- 5457 Sep, [facility] [address] [place] [id number] [place] [address] 71261- 6494 August, [facility] [address] [place] [id number] [place] [address] 06269- 1628 August, Neck pain M54.2 and Neuroforaminal stenosis of spine M99.89 [facility] [address] [place] [id number] [place] [address] 37239- 1126 August, Routine gynecological examination Z01.419 and Screening breast examination Z12.39 [facility] [id number] [place] [address] 53108- 7549 Jul, [facility] [address] [place] [id number] [place] [address] 16474- 0523 Jul, [facility] [address] [place] [id number] [place] [address] 29507- 8705 Jul, Neuroforaminal stenosis of spine M99.89 [facility] [address] [place] [id number] [place] [address] 85855- 2646 Jul, [place] [id number] [place] [address] 77059- 7234 Jul, 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 [place] [address] [place] [id number] [place] [address] 80428- 9891 Jul, [place] [address] [place] [id number] [place] [address] 39719- 3127 Jul, [place] [address] [place] [id number] [place] [address] 97800- 0634 Jun, Neuroforaminal stenosis of spine M99.89 [place] [address] [place] [id number] [place] [address] 10478- 9819 Jun, Uterine leiomyoma, unspecified location D25.9 and Allergic reaction caused by a drug, initial encounter T78.40XA [place] [address] [place] [id number] [place] [address] 74139- 2939 Jun, [place] [address] [place] [id number] [place] [address] 86216- 4152 May, UTI symptoms R39.9 and Pain of right sacroiliac joint M53.3 [place] [address] [place] [id number] [place] [address] 74718- 8100 May, Neuroforaminal stenosis of spine M99.89 [place] [address] [place] [id number] [place] [address] 33639- 3180 May, [place] [address] [place] [id number] [place] [address] 45869- 4718 May, Acute mucoid otitis media of left ear H65.112 and Acute non- recurrent maxillary sinusitis J01.00 [place] [address] [place] [id number] [place] [address] 80666- 3747 May, Acute bacterial conjunctivitis of both eyes H10.33 ; Left arm pain M79.602 and Hypokalemia E87.6 [place] [address] [place] [id number] [place] [address]- 5663 Apr, [place] [address] [place] [id number] [place] [address] 24287- 3885 Apr, Neuroforaminal stenosis of spine M99.89 ; Neck pain M54.2 ; 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 ; Mixed hyperlipidemia E78.2 ; Essential hypertension I10 and Hypokalemia E87.6 [place] [address] 47958- 5014 Mar, Oral candidiasis B37.0 ; Neuroforaminal stenosis of spine M99.89 ; Neck pain M54.2 and 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 [place] [address] [place] [id number] [place] [address] 78897- 0826 Feb, [place] [address] [place] [id number] [place] [address] 93756- 4445 Feb, [place] [address] [place] [id number] [place] [address] 47316- 9462 Feb, UTI (urinary tract infection) N39.0 [place] [address] [place] [id number] [place] [address] 51528- 1590 Feb, Dysuria R30.0 [place] [address] [place] [id number] [place] [address] 83349- 2520 Feb, Dysuria R30.0 [place] [address] [place] [id number] [place] [address] 55079- 8214 Feb, Neuroforaminal stenosis of spine M99.89 ; Neck pain M54.2 ; Essential hypertension I10 ; 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 ; Dysuria R30.0 ; Abnormal MRI, shoulder R93.8 and Acute cystitis without hematuria N30.00 [facility] [id number] [place] [address] 71641- 0089 Jan, [facility] [address] [place] [id number] [place] [address] 86221- 6022 Jan, [facility] [id number] [address]- 7844 Jan, [facility] [address] [place] [id number] [place] [address] 83522- 4826 Jan, Abnormal MRI R93.8 [facility] [address] [place] [id number] [place] [address] 63625- 2867 29 Dec, 2015 [facility] [address] [place] [id number] [place] [address] 58643 -9583 15 Dec, 2015 Acute pain of left shoulder M25.512 [facility] [address] [place] [id number] [place] [address] 32574- 2667 09 Dec, 2015 [facility] [address] [place] [id number] [place] [address] 96273- 9244 08 Dec, 2015 [facility] [address] [place] [id number] [place] [address] 77916- 7392 07 Dec, 2015 Acute pain of left shoulder M25.512 [facility] [address] [place] [id number] [place] [address] 89206- 5076 Nov, [facility] [address] [place] [id number] [place] [address] 23722- 9542 16 Nov, 2015 Neuroforaminal stenosis of spine M99.89 ; Neck pain M54.2 ; Abnormal mammogram R92.8 ; Essential hypertension I10 and 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 [facility] [address] [place] [id number] [place] [address] 70479- 6600 Nov, [facility] [address] [place] [id number] [place] [address] 44922- 8280 Oct, Acute stress disorder F43.0 [facility] [address] [place] [id number] [place] [address] 00429- 3165 Oct, [facility] [address] [place] [id number] [place] [address] 50580- 2992 Oct, [facility] [id number] [address]- 6594 Oct, [facility] [address] [place] [id number] [place] [address] 52508- 4327 Sep, [facility] [id number] [place] [address] 77674- 3102 August, [facility] [address] [place] [id number] [place] [address] 22684- 9295 Jul, Neuroforaminal stenosis of spine M99.89 ; Neck pain M54.2 ; Abnormal mammogram R92.8 and Essential hypertension I10 [facility] [address] [place] [id number] [place] [address] 02687- 9193 Jul, [facility] [address] [place] [id number] [place] [address] 16033- 1844 Jul, [facility] [address] [place] [id number] [place] [address] 19433- 5871 Jul, Abnormal mammogram R92.8 [facility] [id number] [place] [address] 44120- 9100 Jul, [facility] [address] [place] [id number] [place] [address] 92130- 2597 Jul, UTI (urinary tract infection) N39.0 [facility] [id number] [place] [address] 27045- 4552 Jul, Dysuria R30.0 [facility] [id number] [place] [address] 37664- 5154 Jun, [facility] [address] [place] [id number] [place] [address] 82085- 0087 Jun, [facility] [address] [place] [id number] [place] [address] 49158- 3943 Jun, Hypokalemia E87.6 and Hematuria R31.9 [facility] [address] [place] [id number] [place] [address] 46040- 8973 Jun, Hypokalemia E87.6 [place] [address] [place] [id number] [place] [address] 58647- 4040 Jun, [place] [address] [place] [id number] [place] [address] 15530- 2350 Jun, Hypokalemia E87.6 [place] [address] [place] [id number] [place] [address] 14732- 4182 Jun, Hypokalemia E87.6 [place] [address] [place] [id number] [place] [address] 56077- 7705 15 Jun, 2015 Neuroforaminal stenosis of spine M99.89 ; Hypokalemia E87.6 ; Neck pain M54.2 ; Essential hypertension I10 ; Mixed hyperlipidemia E78.2 and Screening breast examination Z12.39 [place] [address] [place] [id number] [place] [address] 78921- 7016 Jun, Dysuria R30.0 ; UTI (urinary tract infection) N39.0 and Hematuria R31.9 [place] [address] [place] [id number] [place] [address] 64452- 5367 May, [place] [address] [place] [id number] [place] [address] 87666- 7491 May, High risk sexual behavior Z72.51 ; Hypokalemia E87.6 ; Neuroforaminal stenosis of spine M99.89 ; Neck pain M54.2 ; Essential hypertension I10 ; Mixed hyperlipidemia E78.2 ; STD exposure Z20.2 and Concern about STD in female without diagnosis Z71.1 [place] [address] [place] [id number] [place] [address] 40034- 4345 16 May, 2015 Neuroforaminal stenosis of spine M99.89 ; Neck pain M54.2 ; Hypokalemia E87.6 ; Essential hypertension I10 and Mixed hyperlipidemia E78.2 [place] [address] [place] [id number] [place] [address] 98420- 0716 May, [facility] [id number] [place] [address] 37161 -7242 08 May, 2015 High risk sexual behavior Z72.51 ; STD exposure Z20.2 and Concern about STD in female without diagnosis Z71.1 [facility] [id number] [place] [address] 34478- 6207 05 May, 2015 [facility] [address] 83263- 1955 Apr, Neuroforaminal stenosis of spine M99.89 ; Mixed hyperlipidemia E78.2 ; Essential hypertension I10 and Hypokalemia E87.6 [place] [address] [place] [id number] [place] [address] 02637- 2331 Mar, [facility] [address] [place] [id number] [place] [address] 33199- 9037 Mar, Hypokalemia E87.6 [place] [address] [place] [id number] [place] [address] 80939- 7434 Mar, Neuroforaminal stenosis of spine M99.89 ; Mixed hyperlipidemia E78.2 ; Neck pain M54.2 ; Essential hypertension I10 ; Abnormal fasting glucose R73.09 ; Hypokalemia E87.6 and Constipation K59.00 [place] [address] [place] [id number] [place] [address] 66555- 5152 Feb, Neuroforaminal stenosis of spine M99.89 ; Mixed hyperlipidemia E78.2 ; Neck pain M54.2 ; Essential hypertension I10 ; Abnormal fasting glucose R73.09 ; Hypokalemia E87.6 and Constipation K59.00 [place] [address] [place] [id number] [place] [address] 51657- 4760 Feb, Elevated fasting blood sugar R73.01 [place] [id number] [place] [address] 70115- 6321 Feb, Elevated fasting blood sugar R73.01 [place] [address] [place] [id number] [place] [address] 70216- 3781 Feb, Hair loss L65.9 [place] [address] [place] [id number] [place] [address] 52601- 6720 Feb, Sinusitis J32.9 ; Essential hypertension I10 and Hair loss L65.9 [place] [address] [place] [id number] [place] [address] 00148- 0962 Jan, [place] [address] 31521- 0023 Jan, Essential hypertension I10 ; Neuroforaminal stenosis of spine M99.89 ; Neck pain M54.2 ; Mixed hyperlipidemia E78.2 and Anxiety F41.9 [place] [address] [place] [id number] [place] [address] 96601- 3617 Jan, [place] [address] 37360- 9668 Jan, Mixed hyperlipidemia E78.2 ; Essential (primary) hypertension I10 ; Strain of muscle, fascia and tendon at neck level, subsequent encounter S16.1XXD and Tension-type headache, unspecified, not intractable G44.209 [place] [address] [place] [id number] [place] [address] 78557- 6536 Dec, Lumbar back pain 724.2 and Neuroforaminal stenosis of spine 724.00 [place] [address] [place] [id number] [place] [address] 67812- 6765 Nov, [place] [address] 97398- 9592 Nov, Lumbar back pain 724.2 and Neuroforaminal stenosis of spine 724.00 [place] [address] 51722- 1298 Nov, Edema 782.3 ; Lumbar back pain 724.2 ; Essential hypertension, benign 401.1 ; Hyperlipemia 272.4 ; Neuroforaminal stenosis of spine 724.00 and Post-concussion headache 339.20 [place] [id number] [address] Nov, [facility] [id number] [place] [address] 87327- 2505 Nov, [facility] [id number] [place] [address] 07802- 4371 Oct, Essential hypertension, benign 401.1 [facility] [address] [place] [id number] [place] [address] 58942- 2749 Oct, Edema 782.3 ; Lumbar back pain 724.2 ; Essential hypertension, benign 401.1 ; Hyperlipemia 272.4 ; Neuroforaminal stenosis of spine 724.00 and Post-concussion headache 339.20 [facility] [id number] [place] [address] 83036- 3547 Oct, [facility] [address] [place] [id number] [place] [address] 66131- 3293 Oct, Edema 782.3 [facility] [address] [place] [id number] [place] [address] 14300- 6844 Oct, Lumbar back pain 724.2 [facility] [id number] [place] [address] 55658- 0412 Oct, Cervicalgia 723.1 ; Lumbar back pain 724.2 and High risk medication use V58.69 [facility] [id number] [place] [address] 17117- 1507 Sep, [facility] [address] [id number] [place] [address]- 8698 Sep, Lumbar strain 847.2 [facility] [id number] [place] [address]- 8513 August, Edema 782.3 and Eustachian tube dysfunction 381.81 [facility] [id number] [address] August, [facility] [id number] [address] 5[address] August, Eustachian tube dysfunction 381.81 [facility] [id number] [place] [address], [place] [address] 4106 Jul, Otalgia 388.70 and Otitis media 382.9 [facility] [id number] [address] 08[address] Jul, [facility] [id number] [place] [address] 75146- 6693 Jul, [facility] [id number] [place] [address], [place] [address]- 1635 Jul, [facility] [id number] [address] 8[address] Jul, [facility] [id number] [place] [address] 924[address]- 1661 Jul, [facility] [id number], [place] [address] 4814 Jun, [facility] [id number], [place] [address] 3903 Jun, [facility] [address], [place] [address] 9504 Jun, [facility] [address], [place] [address]- 3539 May, [facility] [address] [address]- 8214 May, [facility] [address] 9275 May, [facility] [id number] 8340 May, [facility] [address] [address] May, [facility] [place] [facility] [address] [id number] [place] [address]- 1972 May, [facility] [place] [facility] [address] [id number] [place] [address]- 6034 May, [facility] [place] [facility] [address] [id number] [place] [address]- 8867 May, [facility] [place] [facility] [address] [id number] [place] [address]- 0405 May, [facility] [place] [facility] [address] [id number] [place] [address]- 4860 May, [facility] [place] [facility] [address] [id number] [place] [address]- 3216 Apr, [facility] [place] [facility] [address] [id number] [place] [address]- 0371 Apr, [facility] [place] [facility] [address] [id number] [place] [address]- 8358 Apr, [facility] [place] [facility] [address] [id number] [place] [address]- 7414 Apr, [facility] [place] [facility] [address] [id number] [place] [address]- 4920 Apr, [facility] [place] [facility] [address] [id number] [place] [address]- 5528 Apr, [facility] [place] [facility] [address] [id number] [place] [address]- 7161 Apr, [facility] [place] [facility] [address] [id number] [place] [address]- 7992 Apr, [facility] [place] [facility] [address] [id number] [place] [address]- 2240 Apr, [facility] [place] [facility] [address] [id number] [place] [address]- 0493 Apr, [facility] [place] [facility] [address] [id number], [place] [address]- 9422 Apr, [facility] [place] [facility] [address] [id number] [place] [address]- 7263 Apr, [facility] [place] [facility] [address] [id number] [place] [address]- 5279 Apr, [facility] [place] [facility] [address] [facility] [id number] [place] [address]- 6475 Apr, [facility] [place] [facility] [address] [id number] [place] [address]- 7227 Apr, [facility] [place] [facility] [address] [facility] [id number] [place] [address]- 5748 Mar, [facility] [place] [facility] [address] [facility] [id number] [place] [address]- 2558 Mar, [facility] [place] [facility] [address] [facility] [id number], [place] [address]- 2470 Mar, [facility] [place] [facility] [address] [facility] [id number] [place] [address]- 9512 Mar, [facility] [place] [facility] [address] [facility] [id number] [place] [address]- 6786 Feb, [facility] [place] [facility] [address] [facility] [id number], [place] [address]- 1955 Feb, [facility] [place] [facility] [address] [facility] [id number], [place] [address]- 3051 Feb, [facility] [place] [facility] [address] [facility] [id number], [place] [address]- 8341 Feb, [facility] [place] [facility] [address] [id number], [place] [address]- 9983 Jan, [facility] [place] [facility] [address] [facility] [id number], [place] [address]- 5543 Jan, [facility] [place] [facility] [address] [facility] [id number], [place] [address]- 0296 Jan, [facility] [place] [facility] [address] [id number] [place] [address]- 6895 Jan, [facility] [place] [facility] [address] [id number] [place] [address]- 9435 Jan, [facility] [place] [facility] [address] [id number] [place] [address]- 3812 Jan, [facility] [place] [facility] [address] [id number] [place] [address]- 1868 Jan, [facility] [place] [facility] [address] [id number] [place] [address]- 3165 Jan, [facility] [place] [facility] [address] [id number] [place] [address]- 1977 Dec, [facility] [place] [facility] [address] [id number] [place] [address]- 8721 Dec, [facility] [place] [facility] [address] [id number] [place] [address]- 0296 Dec, [facility] [place] [facility] [address] [id number] [place] [address]- 8415 Dec, [facility] [place] [facility] [address] [id number] [place] [address]- 4908 Oct, [facility] [place] [facility] [address] [id number] [place] [address]- 1165 Oct, [facility] [place] [facility] [address] [id number] [place] [address]- 9976 Oct, [facility] [place] [facility] [address] [id number] [place] [address]- 9511 Oct, [facility] [place] [facility] [address] [id number] [place] [address]- 3252 Oct, [facility] [place] [facility] [address] [id number] [place] [address]- 5721 Oct, [facility] [place] [facility] [address] [id number] [place] [address]- 3783 Oct, [facility] [place] [facility] [address] [id number] [place] [address]- 5000 Oct, [facility] [place] [facility] [address] [id number] [place] [address]- 3230 Sep, [facility] [place] [facility] [address] [id number] [place] [address]- 6902 Sep, [facility] [place] [facility] [address] [id number] [place] [address]- 4845 Sep, [facility] [place] [facility] [address] [id number] [place] [address]- 2932 Sep, [facility] [place] [facility] [address] [id number] [place] [address]- 2150 Sep, [facility] [place] [facility] [address] [id number] [place] [address]- 9377 Sep, [facility] [place] [facility] [address] [id number] [place] [address]- 0616 Sep, [facility] [place] [facility] [address] [id number] [place] [address]- 2074 Sep, [facility] [place] [facility] [address] [id number] [place] [address]- 7605 Sep, [facility] [place] [facility] [address] [id number] [place] [address]- 1045 Sep, [facility] [place] [facility] [address] [id number], [place] [address]- 2343 August, [facility] [place] [facility] [address] [id number] [place] [address]- 4227 August, [facility] [place] [facility] [address] [id number] [place] [address]- 5119 August, [facility] [place] [facility] [address] [id number] [place] [address]- 8518 August, [facility] [place] [facility] [address] [id number] [place] [address]- 6726 August, [facility] [place] [facility] [address] [id number] [place] [address]- 3494 August, [facility] [place] [facility] [address] [id number] [place] [address]- 8289 August, [facility] [place] [facility] [address] [id number] [place] [address]- 3031 August, [facility] [place] [facility] [address] [id number] [place] [address]- 5789 August, [facility] [place] [facility] [address] [id number] [place] [address]- 1643 August, [facility] [place] [facility] [address] [id number] [place] [address]- 3542 August, [facility] [place] [facility] [address] [id number] [place] [address]- 8460 August, [facility] [place] [facility] [address] [id number] [place] [address]- 6753 Jul, [facility] [place] [facility] [address] [id number] [place] [address]- 8457 Jul, [facility] [place] [facility] [address] [id number] [place] [address]- 4080 Jul, [facility] [place] [facility] [address] [id number] [place] [address]- 6014 Jul, [facility] [place] [facility] [address] [id number] [place] [address]- 5521 Jul, [facility] [place] [facility] [address] [id number] [place] [address]- 6504 Jul, [facility] [place] [facility] [address] [id number] [place] [address]- 0512 Jun, [facility] [place] [facility] [address] [id number] [place] [address]- 0982 Jun, [facility] [place] [facility] [address] [id number] [place] [address]- 5948 May, [facility] [place] [facility] [address] [id number] [place] [address]- 6182 May, [facility] [place] [facility] [address] [id number] [place] [address]- 7506 Apr, [facility] [place] [facility] [address] [id number] [place] [address]- 1691 Apr, [facility] [place] [facility] [address] [id number] [place] [address]- 0174 Apr, [facility] [place] [facility] [address] [id number] [place] [address]- 7688 Apr, [facility] [place] [facility] [address] [id number] [place] [address]- 0945 Apr, [facility] [place] [facility] [address] [id number] [place] [address]- 1276 Apr, [facility] [place] [facility] [address] [id number] [place] [address]- 4712 Apr, [facility] [place] [facility] [address] [id number] [place] [address]- 0054 Apr, [facility] [place] [facility] [address] [id number] [place] [address]- 1082 Apr, [facility] [place] [facility] [address] [id number], [place] [address]- 3248 Apr, [facility] [place] [facility] [address] [id number] [place] [address]- 2183 Apr, [facility] [place] [facility] [address] [id number] [place] [address]- 7751 Apr, [facility] [place] [facility] [address] [id number] [place] [address]- 3633 Apr, [facility] [place] [facility] [address] [id number], [place] [address]- 3322 Mar, [facility] [place] [facility] [address] [id number] [place] [address]- 6961 Mar, [facility] [place] [facility] [address] [id number], [place] [address]- 4903 Mar, [facility] [place] [facility] [address] [id number] [place] [address]- 5623 Mar, [facility] [place] [facility] [address] [id number] [place] [address]- 6921 Feb, [facility] [place] [facility] [address] [id number] [place] [address]- 6478 Feb, [facility] [place] [facility] [address] [id number] [place] [address]- 8250 Feb, [facility] [place] [facility] [address] [id number], [place] [address]- 8900 Feb, [facility] [place] [facility] [address] [id number], [place] [address]- 8371 Jan, [facility] [place] [facility] [address] [id number], [place] [address]- 9080 14 Jan, 2013 [facility] [place] [facility] [address] [id number], [place] [address]- 7917 Jan, [facility] [place] [facility] [address] [id number], [place] [address]- 2575 Jan, [facility] [place] [facility] [address] [id number], [place] [address]- 1143 Jan, [facility] [place] [facility] [address] [id number], [place] [address]- 1994 Jan, [facility] [place] [facility] [address] [id number], [place] [address]- 7880 Jan, [facility] [place] [facility] [address] [id number], [place] [address]- 8666 Jan, [facility] [place] [facility] [address] [id number] [place] [address]- 0328 Jan, [facility] [address] [id number] [place] [address]- 2176 26 Dec, 2012 [facility] [place] [facility] [address] [id number] [place] [address]- 9596 16 Dec, 2012 [facility] [address] [id number] [place] [address]- 1126 16 Dec, 2012 [facility] [address] [id number] [place] [address]- 6219 13 Dec, 2012 [facility] [address] [id number] [place] [address]- 1205 Nov, [facility] [address] [id number] [place] [address]- 6696 Nov, [facility] [address] [id number] [place] [address]- 6163 Nov, [facility] [address] [id number] [place] [address]- 0556 Nov, [facility] [address] [id number] [place] [address]- 1829 Oct, [facility] [address] [id number] [place] [address]- 2848 Sep, [facility] [address] [id number] [place] [address]- 3825 August, [facility] [address] [id number] [place] [address]- 2725 August, [facility] [place] [facility] [address] [id number] [place] [address]- 5290 August, [facility] [place] [facility] [address] [id number] [place] [address]- 3636 August, [facility] [place] [facility] [address] [id number] [place] [address]- 6569 August, [facility] [address] [id number] [place] [address]- 7287 August, [facility] [address] [id number] [place] [address]- 9681 August, [facility] [address] [id number] [place] [address]- 8657 August, [facility] [address] [id number] [place] [address]- 1584 August, [facility] [address] [id number] [place] [address]- 6447 August, [facility] [address] [id number] [place] [address]- 7920 August, [facility] [address] [id number] [place] [address]- 8653 August, [facility] [address] [id number] [place] [address]- 3701 Jul, [facility] [address] [id number] [place] [address]- 1753 Jul, [facility] [address] [id number] [place] [address]- 7999 Jul, [facility] [address] [id number] [place] [address]- 0463 Jul, [facility] [place] [facility] [address] [id number], [place] [address]- 8542 Jul, [facility] [place] [facility] [address] [id number] [place] [address]- 1085 Jul, [facility] [place] [facility] [address] [id number] [place] [address]- 6595 Jul, [facility] [place] [facility] [address] [id number] [place] [address]- 3746 Jul, [facility] [place] [facility] [address] [id number] [place] [address] 2546 Jul, [facility] [address] [id number] [place] [address]- 4616 Jul, [facility] [place] [facility] [address] [facility] [id number] [place] [address]- 2526 Jul, [facility] [address] [facility] [id number] [place] [address]- 6146 Jun, [facility] [place] [facility] [address] [id number] [place] [address]- 8008 Jun, [facility] [address] [id number] [place] [address]- 2584 Jun, [facility] [place] [facility] [address] [facility] [id number] [place] [address]- 2546 Jun, [facility] [address] [id number] [place] [address]- 4407 May, [facility] [place] [facility] [address] [id number] [place] [address]- 9979 14 May, 2012 [facility] [place] [facility] [id number] [address]- 2366 05 May, 2012 [facility] [address] [facility] [id number] [place] [address]- 7576 May, [facility] [place] [facility] [id number] [place] [address]- 2546 May, [facility] [place] [facility] [address] [facility] [id number] [place] [address]- 2546 May, [facility] [place] [facility] [address] [id number] [place] [address]- 2546 Apr, [facility] [place] [facility] [address] [facility] [id number] [place] [address]- 2546 Apr, [facility] [place] [facility] [address] [facility] [id number] [place] [address]- 1316 Apr, [facility] [place] [facility] [address] [id number] [place] [address]- 7142 Apr, [facility] [place] [facility] [address] [id number] [place] [address]- 2642 Mar, [facility] [place] [facility] [address] [id number] [place] 0788 Mar, [facility] [place] [facility] [address] [id number] [place] [address]- 4064 Mar, [facility] [place] [facility] [address] [id number] [place] [address]- 2409 Mar, [facility] [place] [facility] [address] [id number] [place] [address]- 0560 Mar, [facility] [place] [facility] [address] [id number] [place] [address]- 1171 Mar, [facility] [place] [facility] [address] [id number] [place] [address]- 5347 Mar, [facility] [place] [facility] [address] [id number] [place] [address]- 6031 Feb, [facility] [place] [facility] [address] [id number], [place] [address]- 5642 Feb, [facility] [place] [facility] [address] [id number], [place] [address]- 0309 Feb, [facility] [place] [facility] [address] [id number], [place] [address]- 6419 Feb, [facility] [place] [facility] [address] [id number] [place] [address]- 9419 Jan, [facility] [place] [facility] [address] [id number], [place] [address]- 8162 Jan, [facility] [place] [facility] [address] [id number], [place] [address] Jan, [facility] [place] [facility] [address] [id number], [place] [address] Jan, [facility] [address] [id number] [place] [address] Jan, [facility] [place] [facility] [address] [id number] [place] [address] Jan, [facility] [place] [facility] [address] [id number] [place] [address] Dec, [facility] [place] [facility] [address] [id number] [place] [address] Dec, [facility] [place] [facility] [address] [id number] [place] [address] Nov, [facility] [place] [facility] [address] [id number] [place] [address] Sep, [facility] [id number] [address] August, [facility] [place] [facility] [address] [id number] [place] [address] August, [facility] [address] [id number] [place] [address] August, [facility] [place] [facility] [address] [id number] [address] August, [facility] [place] [facility] [address] [id number] [place] [address] August, [facility] [place] [facility] [address] [id number], [place] [address] Jun, [facility] [place] [facility] [address] [id number] [place] [address] Jun, [facility] [place] [facility] [address] [facility] [id number] [place] [address]- [address] Apr, [facility] [place] [facility] [address] [id number] [place] [address] 1995 Apr, [facility] [place] [facility] [address] [id number] [place] [address] 23 Mar, 2011 [facility] [place] [facility] [address] [id number] [place] [address] Feb, [facility] [place] [facility] [address] [id number] [place] [address] 14 Feb, 2011 [facility] [place] [facility] [address] [id number] [place] [address]- [address] 14 Feb, 2011 [facility] [place] [facility] [address] [id number] [place] [address] 17 Jan, 2011 [facility] [place] [facility] [address] [id number] [place] [address] [address] 15 Jan, 2011 [facility] [place] [facility] [address] [id number] [place] [address]- [address] 15 Jan, 2011 [facility] [place] [facility] [address] [id number] [place] [address]- [address] 14 Jan, 2011 [facility] [place] [facility] [address] [id number] [place] [address] 15 May, 2010 [facility] [place] [facility] [address] [id number] [place] [address] Mar, [facility] [place] [facility] [address] [id number] [place] [address] Oct, [facility] [place] [facility] [address] [id number] [place] [address] Sep, [facility] [place] [facility] [address] [id number] [place] [address] Mar, [facility] [place] [facility] [address] [id number] [place] [address] Jan, [facility] [place] [facility] [address] [id number] [place] [address] Jan, [facility] [place] [facility] [address] [id number] [place] [address] May, IMMUNIZATIONS No Known Immunizations SOCIAL HISTORY Never Assessed REASON FOR VISIT Repository Medication PLAN OF CARE VITAL SIGNS MEDICATIONS Unknown Medications RESULTS No Results PROCEDURES No Known procedures INSTRUCTIONS MEDICATIONS ADMINISTERED No Known Medications MEDICAL (GENERAL) HISTORY Type Description Date Medical History hypertension Medical History Colposcopy with loop electrode excision of the cervix was performed 06/2012, mild squamous atypia (no definite dyplasia). Performed at [facility] Dr. Joy. Medical History Acute suppurative [...]
--- OUTSIDE RECORDS SUMMARY | 2018-06-10 04:44 | XMS REPORT ---
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 Name Role Phone BETI STAUFFER Unavailable PROBLEMS Type Condition ICD9-CM Code DWW08-OT Code Onset Dates Condition Status SNOMED Code Problem Hematuria, unspecified type R31.9 Active 98245942 Problem Anxiety F41.9 Active 44334043 Problem Abnormal renal ultrasound R93.429 Active 13697446496723618 Problem Abnormal glucose R73.09 Active 548146663 Problem 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 Active 811297354 Problem Hypokalemia E87.6 Active 70442890 Problem Neck pain M54.2 Active 41122783 Problem Neuroforaminal stenosis of spine M99.89 Active 741233926855 Problem Mixed hyperlipidemia E78.2 Active 15973976 Problem Essential hypertension I10 Active 11880844 ALLERGIES No Information ENCOUNTERS Encounter Location Date Diagnosis [place] [address] 27043- 4796 08 Feb, 2018 [place] [address] 15785- 4696 13 Dec, 2017 Lateral epicondylitis, right elbow M77.11 [place] [address] 96979- 0432 11 Dec, 2017 Allergic rhinitis due to pollen, unspecified seasonality J30.1 and Allergic conjunctivitis of both eyes H10.13 [place] [address] 34505- 6246 10 Dec, 2017 Neuroforaminal stenosis of spine M99.89 [place] [address] [place] [id number] [place] [address] 61536- 4417 06 Dec, 2017 Mixed hyperlipidemia E78.2 [place] [address] [place] [id number] [place] [address] 96601- 4599 Dec, Abnormal glucose R73.09 ; Abnormal renal ultrasound R93.429 ; Dysuria R30.0 ; Cystitis without hematuria N30.90 ; Hypokalemia E87.6 ; Mixed hyperlipidemia E78.2 and Hematuria, unspecified type R31.9 [place] [address] [place] [id number] [place] [address] 63052- 4853 Nov, Hypokalemia E87.6 ; Mixed hyperlipidemia E78.2 and Hematuria , unspecified type R31.9 [place] [address] [place] [id number] [place] [address] 87371- 5906 Nov, [place] [address] 33437- 2905 Nov, Hypokalemia E87.6 [place] [address] 16212- 7522 Nov, [place] [address] [place] [id number] [place] [address] 07337- 0020 Nov, Abnormal renal ultrasound R93.429 [place] [address] 28764- 1582 Nov, Abnormal renal ultrasound R93.429 [place] [address] [place] [id number] [place] [address] 50902- 9474 Nov, Hematuria, unspecified type R31.9 and Neuroforaminal stenosis of spine M99.89 [place] [address] [place] [id number] [place] [address] 25240- 1465 Nov, Dysuria R30.0 [place] [address] 29385- 2104 Oct, Lateral epicondylitis, right elbow M77.11 [place] [address] [place] [id number] [place] [address] 54681- 8856 Oct, Neuroforaminal stenosis of spine M99.89 ; Visit for TB skin test Z11.1 and Essential hypertension I10 [place] [address] [place] [id number] [place] [address] 89206- 5038 16 Oct, 2017 [place] [address] [place] [id number] [place] [address] 20187- 4064 Oct, Neuroforaminal stenosis of spine M99.89 [place] [address] 03428- 9862 10 Oct, 2017 Visit for TB skin test Z11.1 [place] [address] [place] [id number] [place] [address] 48601- 8431 05 Oct, 2017 Cystitis without hematuria N30.90 [place] [address] [place] [id number] [place] [address] 89592- 2900 28 Sep, 2017 Screening breast examination Z12.39 [place] [address] 05597- 9186 26 Sep, 2017 Dysuria R30.0 and Cystitis without hematuria N30.90 [place] [address] [place] [id number] [place] [address] 07324- 9269 14 Sep, 2017 Essential hypertension I10 and Neuroforaminal stenosis of spine M99.89 [place] [address] [place] [id number] [place] [address] 66986- 4232 Sep, Abnormal glucose R73.09 [place] [address] 67791- 1775 August, Lateral epicondylitis, right elbow M77.11 [place] [address] [place] [id number] [place] [address] 81284- 7596 August, Screen for STD (sexually transmitted disease) Z11.3 [place] [address] [place] [id number] [place] [address] 50366- 4166 August, Neuroforaminal stenosis of spine M99.89 ; Mixed hyperlipidemia E78.2 ; Elevated fasting glucose R73.01 ; Screening mammogram, encounter for Z12.31 and Encounter for well woman exam without gynecological exam Z00.00 [facility] [address] [place] [id number] [place] [address] 92788- 9402 August, Neuroforaminal stenosis of spine M99.89 [facility] [address] [place] [id number] [place] [address] 44958- 2092 August, Essential hypertension I10 ; Hypokalemia E87.6 and Mixed hyperlipidemia E78.2 [place] [address] 48556- 2741 Jul, [place] [address] [place] [id number] [place] [address] 37546- 0613 Jul, Neuroforaminal stenosis of spine M99.89 [place] [address] [place] [id number] [place] [address] 62387- 5339 Jul, Lateral epicondylitis, right elbow M77.11 [place] [address] 41208- 1679 Jul, [place] [address] [place] [id number] [place] [address] 17172- 9750 Jun, High ankle sprain of right lower extremity, initial encounter S93.431A [place] [address] [place] [id number] [place] [address] 35424- 1123 Jun, Essential hypertension I10 [place] [address] [place] [id number] [place] [address] 19735- 7526 Jun, [facility] [address] [place] [id number] [place] [address] 46601- 2191 Jun, [place] [address] [place] [id number] [place] [address] 84862- 9577 Jun, Neuroforaminal stenosis of spine M99.89 [facility] [address] [place] [id number] [place] [address] 40927- 5307 Jun, Pain of right upper extremity M79.601 and Essential hypertension I10 [place] [address] [place] [address] [place] [address] 50262- 7341 Jun, [place] [address] [place] [id number] [place] [address] 78180- 1730 Jun, Dysuria R30.0 ; Acute cystitis with hematuria N30.01 and Screen for STD (sexually transmitted disease) Z11.3 [place] [address] [place] [id number] [place] [address] 85766- 2975 May, 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 [place] [address] [place] [id number] [place] [address] 05662- 2516 May, Essential hypertension I10 [place] [id number] [place] [address] 54521- 9465 May, Neuroforaminal stenosis of spine M99.89 [place] [id number] [place] [address] 63137- 1022 Apr, Allergic reaction, initial encounter T78.40XA [place] [address] [place] [id number] [place] [address] 61576- 2252 Apr, Low back pain, unspecified back pain laterality, unspecified chronicity, with sciatica presence unspecified M54.5 ; Acute cystitis with hematuria N30.01 ; Neuroforaminal stenosis of spine M99.89 ; Bilateral acute serous otitis media, recurrence not specified H65.03 ; Mixed hyperlipidemia E78.2 ; Essential hypertension I10 ; Immunization counseling Z71.89 and Encounter for immunization Z23 [place] [address] [place] [id number] [place] [address] 70053- 2555 Apr, Neck pain M54.2 [place] [id number] [place] [address] 57260- 3465 Mar, Neuroforaminal stenosis of spine M99.89 [place] [address] [place] [id number] [place] [address] 40637- 1157 Mar, Pharyngitis due to other organism J02.8 [place] [address] [place] [id number] [place] [address] 60987- 8633 Feb, Neuroforaminal stenosis of spine M99.89 [facility] [address] [place] [id number] [place] [address] 38828- 2868 Feb, UTI (urinary tract infection) N39.0 [facility] [address] [place] [id number] [place] [address] 03405- 7733 Feb, Recent urinary tract infection Z87.440 ; Neuroforaminal stenosis of spine M99.89 ; Neck pain M54.2 ; 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 and Recurrent UTI N39.0 [facility] [address] 55819- 0892 Feb, [facility] [address] [place] [id number] [place] [address] 70012- 9223 Jan, Neuroforaminal stenosis of spine M99.89 [facility] [address] 45831- 0004 Dec, Neuroforaminal stenosis of spine M99.89 [facility] [address] [place] [id number] [place] [address] 86555- 2134 Dec, Acute seasonal allergic rhinitis due to pollen J30.1 [place] [address] [place] [id number] [place] [address] 02744- 5703 Dec, [facility] [address] 42212- 8396 Dec, Acute seasonal allergic rhinitis, unspecified trigger J30.2 ; Allergic conjunctivitis of both eyes H10.13 and Dysfunction of both eustachian tubes H69.83 [facility] [address] [place] [id number] [place] [address] 95943- 0432 Dec, [facility] [address] [place] [id number] [place] [address] 94166- 0646 06 Dec, 2016 Nevus D22.9 [facility] [address] 53112- 4356 Nov, 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 and Neuroforaminal stenosis of spine M99.89 [facility] [address] [place] [id number] [place] [address] 71257- 0792 Nov, Neuroforaminal stenosis of spine M99.89 ; Essential hypertension I10 ; Mixed hyperlipidemia E78.2 ; Hypokalemia E87.6 ; Neck pain M54.2 and Nevus D22.9 [facility] [address] [place] [id number] [place] [address] 44414- 9023 Oct, Neuroforaminal stenosis of spine M99.89 [facility] [address] [place] [id number] [place] [address] 83483- 5164 Sep, Neuroforaminal stenosis of spine M99.89 [facility] [address] [place] [id number] [place] [address] 78745- 8953 Sep, [facility] [address] [place] [id number] [place] [address] 73235- 0468 August, [facility] [address] [place] [id number] [place] [address] 50560- 5767 August, Neck pain M54.2 and Neuroforaminal stenosis of spine M99.89 [facility] [address] [place] [id number] [place] [address] 27353- 5382 August, Routine gynecological examination Z01.419 and Screening breast examination Z12.39 [facility] [address] [place] [address] 26171- 2689 Jul, [facility] [address] [place] [id number] [place] [address] 04949- 8986 Jul, [facility] [address] [place] [id number] [place] [address] 71069- 3694 Jul, Neuroforaminal stenosis of spine M99.89 [facility] [address] [place] [id number] [place] [address] 03425- 4566 Jul, [place] [address] [place] [address] 62410- 4359 Jul, 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 [place] [address] [place] [id number] [place] [address] 43478- 9567 Jul, [place] [address] [place] [id number] [place] [address] 09509- 7561 Jul, [place] [address] [place] [id number] [place] [address] 62514- 8771 Jun, Neuroforaminal stenosis of spine M99.89 [place] [address] [place] [id number] [place] [address] 25511- 8641 Jun, Uterine leiomyoma, unspecified location D25.9 and Allergic reaction caused by a drug, initial encounter T78.40XA [place] [address] [place] [id number] [place] [address] 17595- 9726 Jun, [place] [address] [place] [id number] [place] [address] 90531- 0421 May, UTI symptoms R39.9 and Pain of right sacroiliac joint M53.3 [place] [address] [place] [id number] [place] [address] 46184- 3674 May, Neuroforaminal stenosis of spine M99.89 [place] [address] [place] [id number] [place] [address] 92906- 3504 May, [place] [address] [place] [id number] [place] [address] 64678- 3545 May, Acute mucoid otitis media of left ear H65.112 and Acute non- recurrent maxillary sinusitis J01.00 [place] [address] [place] [id number] [place] [address] 21605- 4352 May, Acute bacterial conjunctivitis of both eyes H10.33 ; Left arm pain M79.602 and Hypokalemia E87.6 [place] [address] [place] [address] [place] [address]- 8255 Apr, [place] [address] [place] [id number] [place] [address] 09076- 7972 Apr, Neuroforaminal stenosis of spine M99.89 ; Neck pain M54.2 ; 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 ; Mixed hyperlipidemia E78.2 ; Essential hypertension I10 and Hypokalemia E87.6 [place] [address] 89220- 7164 Mar, Oral candidiasis B37.0 ; Neuroforaminal stenosis of spine M99.89 ; Neck pain M54.2 and 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 [place] [address] [place] [id number] [place] [address] 58181- 2959 Feb, [place] [address] [place] [id number] [place] [address] 35126- 3505 Feb, [place] [address] [place] [id number] [place] [address] 64574- 8943 Feb, UTI (urinary tract infection) N39.0 [place] [address] [place] [id number] [place] [address] 56711- 3190 Feb, Dysuria R30.0 [place] [address] [place] [id number] [place] [address] 24233- 0913 Feb, Dysuria R30.0 [place] [address] [place] [id number] [place] [address] 72814- 1258 Feb, Neuroforaminal stenosis of spine M99.89 ; Neck pain M54.2 ; Essential hypertension I10 ; 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 ; Dysuria R30.0 ; Abnormal MRI, shoulder R93.8 and Acute cystitis without hematuria N30.00 [facility] [address] [place] [address] 52048- 1952 Jan, [facility] [address] [place] [id number] [place] [address] 98302- 2893 Jan, [facility] [address] [address]- 0700 Jan, [facility] [address] [place] [id number] [place] [address] 63833- 8625 Jan, Abnormal MRI R93.8 [facility] [address] [place] [id number] [place] [address] 69368- 8941 29 Dec, 2015 [facility] [address] [place] [id number] [place] [address] 17261 -2562 15 Dec, 2015 Acute pain of left shoulder M25.512 [facility] [address] [place] [id number] [place] [address] 73666- 9776 09 Dec, 2015 [facility] [address] [place] [id number] [place] [address] 97628- 0260 08 Dec, 2015 [facility] [address] [place] [id number] [place] [address] 37273- 1548 07 Dec, 2015 Acute pain of left shoulder M25.512 [facility] [address] [place] [id number] [place] [address] 03439- 4855 Nov, [facility] [address] [place] [id number] [place] [address] 92908- 0894 16 Nov, 2015 Neuroforaminal stenosis of spine M99.89 ; Neck pain M54.2 ; Abnormal mammogram R92.8 ; Essential hypertension I10 and 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 [facility] [address] [place] [id number] [place] [address] 88022- 8662 Nov, [facility] [address] [place] [id number] [place] [address] 57638- 7125 Oct, Acute stress disorder F43.0 [facility] [address] [place] [id number] [place] [address] 09859- 6414 Oct, [facility] [address] [place] [id number] [place] [address] 91504- 4694 Oct, [facility] [address] [address]- 5322 Oct, [facility] [address] [place] [id number] [place] [address] 49260- 6859 Sep, [facility] [address] [place] [address] 82589- 9631 August, [facility] [address] [place] [id number] [place] [address] 07466- 7459 Jul, Neuroforaminal stenosis of spine M99.89 ; Neck pain M54.2 ; Abnormal mammogram R92.8 and Essential hypertension I10 [facility] [address] [place] [id number] [place] [address] 25953- 4528 Jul, [facility] [address] [place] [id number] [place] [address] 93171- 6877 Jul, [facility] [address] [place] [id number] [place] [address] 63258- 5241 Jul, Abnormal mammogram R92.8 [facility] [address] [place] [address] 94103- 2397 Jul, [facility] [address] [place] [id number] [place] [address] 09156- 9145 Jul, UTI (urinary tract infection) N39.0 [facility] [address] [place] [address] 95785- 5980 Jul, Dysuria R30.0 [facility] [address] [place] [address] 38457- 7708 Jun, [facility] [address] [place] [id number] [place] [address] 90005- 2468 Jun, [facility] [address] [place] [id number] [place] [address] 56521- 6064 Jun, Hypokalemia E87.6 and Hematuria R31.9 [facility] [address] [place] [id number] [place] [address] 87838- 8362 Jun, Hypokalemia E87.6 [place] [address] [place] [id number] [place] [address] 87776- 3693 Jun, [place] [address] [place] [id number] [place] [address] 84788- 1681 Jun, Hypokalemia E87.6 [place] [address] [place] [id number] [place] [address] 00915- 2226 Jun, Hypokalemia E87.6 [place] [address] [place] [id number] [place] [address] 20353- 4133 15 Jun, 2015 Neuroforaminal stenosis of spine M99.89 ; Hypokalemia E87.6 ; Neck pain M54.2 ; Essential hypertension I10 ; Mixed hyperlipidemia E78.2 and Screening breast examination Z12.39 [place] [address] [place] [id number] [place] [address] 11580- 5000 Jun, Dysuria R30.0 ; UTI (urinary tract infection) N39.0 and Hematuria R31.9 [place] [address] [place] [id number] [place] [address] 75837- 2354 May, [place] [address] [place] [id number] [place] [address] 87128- 2204 May, High risk sexual behavior Z72.51 ; Hypokalemia E87.6 ; Neuroforaminal stenosis of spine M99.89 ; Neck pain M54.2 ; Essential hypertension I10 ; Mixed hyperlipidemia E78.2 ; STD exposure Z20.2 and Concern about STD in female without diagnosis Z71.1 [place] [address] [place] [id number] [place] [address] 44878- 6176 16 May, 2015 Neuroforaminal stenosis of spine M99.89 ; Neck pain M54.2 ; Hypokalemia E87.6 ; Essential hypertension I10 and Mixed hyperlipidemia E78.2 [place] [address] [place] [id number] [place] [address] 28632- 9442 May, [facility] [address] [place] [address] 14760 -6401 08 May, 2015 High risk sexual behavior Z72.51 ; STD exposure Z20.2 and Concern about STD in female without diagnosis Z71.1 [facility] [address] [place] [address] 07283- 9362 05 May, 2015 [facility] [address] 85776- 7708 Apr, Neuroforaminal stenosis of spine M99.89 ; Mixed hyperlipidemia E78.2 ; Essential hypertension I10 and Hypokalemia E87.6 [place] [address] [place] [id number] [place] [address] 53645- 1826 Mar, [facility] [address] [place] [id number] [place] [address] 14454- 9009 Mar, Hypokalemia E87.6 [place] [address] [place] [id number] [place] [address] 01008- 5271 Mar, Neuroforaminal stenosis of spine M99.89 ; Mixed hyperlipidemia E78.2 ; Neck pain M54.2 ; Essential hypertension I10 ; Abnormal fasting glucose R73.09 ; Hypokalemia E87.6 and Constipation K59.00 [place] [address] [place] [id number] [place] [address] 58477- 2162 Feb, Neuroforaminal stenosis of spine M99.89 ; Mixed hyperlipidemia E78.2 ; Neck pain M54.2 ; Essential hypertension I10 ; Abnormal fasting glucose R73.09 ; Hypokalemia E87.6 and Constipation K59.00 [place] [address] [place] [id number] [place] [address] 55688- 7090 Feb, Elevated fasting blood sugar R73.01 [place] [address] [place] [address] 11953- 6346 Feb, Elevated fasting blood sugar R73.01 [place] [address] [place] [id number] [place] [address] 60952- 4117 Feb, Hair loss L65.9 [place] [address] [place] [id number] [place] [address] 57508- 7596 Feb, Sinusitis J32.9 ; Essential hypertension I10 and Hair loss L65.9 [place] [address] [place] [id number] [place] [address] 59205- 6617 Jan, [place] [address] 44947- 5519 Jan, Essential hypertension I10 ; Neuroforaminal stenosis of spine M99.89 ; Neck pain M54.2 ; Mixed hyperlipidemia E78.2 and Anxiety F41.9 [place] [address] [place] [id number] [place] [address] 79453- 6538 Jan, [place] [address] 64810- 2607 Jan, Mixed hyperlipidemia E78.2 ; Essential (primary) hypertension I10 ; Strain of muscle, fascia and tendon at neck level, subsequent encounter S16.1XXD and Tension-type headache, unspecified, not intractable G44.209 [place] [address] [place] [id number] [place] [address]- [address] Dec, Lumbar back pain 724.2 and Neuroforaminal stenosis of spine 724.00 [place] [address] [place] [id number] [place] [address]65- [address] Nov, [place] [address] [address] Nov, Lumbar back pain 724.2 and Neuroforaminal stenosis of spine 724.00 [place] [address] [address]- [address] Nov, Edema 782.3 ; Lumbar back pain 724.2 ; Essential hypertension, benign 401.1 ; Hyperlipemia 272.4 ; Neuroforaminal stenosis of spine 724.00 and Post-concussion headache 339.20 [place] [id number] [address] Nov, [facility] [id number] [place] [address] 23[address]- [address] Nov, [facility] [id number] [place] [address] 13642- [address] Oct, Essential hypertension, benign 401.1 [facility] [address] [place] [id number] [place] [address]- 2080 Oct, Edema 782.3 ; Lumbar back pain 724.2 ; Essential hypertension, benign 401.1 ; Hyperlipemia 272.4 ; Neuroforaminal stenosis of spine 724.00 and Post-concussion headache 339.20 [facility] [id number] [place] [address] 15747- 1658 Oct, [facility] [address] [place] [id number] [place] [address] 4[address]- 1604 Oct, Edema 782.3 [facility] [address] [place] [id number] [place] [address] 76821- 9388 Oct, Lumbar back pain 724.2 [facility] [id number] [place] [address] 9[address]45- [address] Oct, Cervicalgia 723.1 ; Lumbar back pain 724.2 and High risk medication use V58.69 [facility] [id number] [place] [address]36- [address] Sep, [facility] [id number] [place] [address] 38534- [address]75 Sep, Lumbar strain 847.2 [facility] [id number] [place] [address] 05783- 64[address] August, Edema 782.3 and Eustachian tube dysfunction 381.81 [facility] [address], [place] [address] August, [facility] [address], [place] [address] August, Eustachian tube dysfunction 381.81 [facility] [id number] [place] [address], [place] [address] 3973 Jul, Otalgia 388.70 and Otitis media 382.9 [facility] [address] [place] [address] 37[address] Jul, [facility] [id number] [place] [address]361 Jul, [facility] [id number] [place] [address], [place] [address]- 7982 Jul, [facility] [id number] [address] Jul, [facility] [id number] [place] [address]113 Jul, [facility] [address], [place] [address] 6[address] Jun, [facility] [address], [place] [address]- 7400 Jun, [facility] [address], [place] [address]- 3752 Jun, [facility] [address], [place] [address]- 1338 May, [facility] [address], [place] [address] 6[address] May, [facility] [address] [address] May, [facility] [address] 1771 May, [facility] [address] [address] May, [facility] [place] [facility] [address] [id number] [place] [address]- 4415 May, [facility] [place] [facility] [address] [id number] [place] [address]- 4738 May, [facility] [place] [facility] [address] [id number] [place] [address]- 0834 May, [facility] [place] [facility] [address] [id number] [place] [address]- 0602 May, [facility] [place] [facility] [address] [id number] [place] [address]- 9910 May, [facility] [place] [facility] [address] [id number] [place] [address]- 8969 Apr, [facility] [place] [facility] [address] [id number] [place] [address]- 2286 Apr, [facility] [place] [facility] [address] [id number] [place] [address]- 1359 Apr, [facility] [place] [facility] [address] [id number] [place] [address]- 1361 Apr, [facility] [place] [facility] [address] [id number] [place] [address]- 7767 Apr, [facility] [place] [facility] [address] [id number] [place] [address]- 3860 Apr, [facility] [place] [facility] [address] [id number] [place] [address]- 9635 Apr, [facility] [place] [facility] [address] [id number] [place] [address]- 0459 Apr, [facility] [place] [facility] [address] [id number] [place] [address]- 0448 Apr, [facility] [place] [facility] [address] [id number] [place] [address]- 5236 Apr, [facility] [place] [facility] [address] [id number], [place] [address]- 52[address] Apr, [facility] [place] [facility] [address] [id number] [place] [address]- 3362 Apr, [facility] [place] [facility] [address] [id number] [place] [address]- 8419 Apr, [facility] [place] [facility] [address] [facility] [id number] [place] [address]- 8147 Apr, [facility] [place] [facility] [address] [id number] [place] [address]- 8055 Apr, [facility] [place] [facility] [address] [facility] [id number] [place] [address]- 3135 Mar, [facility] [place] [facility] [address] [facility] [id number] [place] [address]- 8685 Mar, [facility] [place] [facility] [address] [facility] [id number], [place] [address]- 0332 Mar, [facility] [place] [facility] [address] [facility] [id number] [place] [address]- 6192 Mar, [facility] [place] [facility] [address] [facility] [id number] [place] [address]- 7308 Feb, [facility] [place] [facility] [address] [facility] [id number], [place] [address]- 4466 Feb, [facility] [place] [facility] [address] [facility] [id number], [place] [address]- 4383 Feb, [facility] [place] [facility] [address] [facility] [id number], [place] [address]- 4658 Feb, [facility] [place] [facility] [address] [id number], [place] [address]- 1164 Jan, [facility] [place] [facility] [address] [facility] [id number], [place] [address]- 5303 Jan, [facility] [place] [facility] [address] [facility] [id number], [place] [address]- 5117 Jan, [facility] [place] [facility] [address] [id number] [place] [address]- 6326 Jan, [facility] [place] [facility] [address] [id number] [place] [address]- 6278 Jan, [facility] [place] [facility] [address] [id number] [place] [address]- 7900 Jan, [facility] [place] [facility] [address] [id number] [place] [address]- 9357 Jan, [facility] [place] [facility] [address] [id number] [place] [address]- 9785 Jan, [facility] [place] [facility] [address] [id number] [place] [address]- 3375 Dec, [facility] [place] [facility] [address] [id number] [place] [address]- 7723 Dec, [facility] [place] [facility] [address] [id number] [place] [address]- 2735 Dec, [facility] [place] [facility] [address] [id number] [place] [address]- 7770 Dec, [facility] [place] [facility] [address] [id number] [place] [address]- 9935 Oct, [facility] [place] [facility] [address] [id number] [place] [address]- 5409 Oct, [facility] [place] [facility] [address] [id number] [place] [address]- 2407 Oct, [facility] [place] [facility] [address] [id number] [place] [address]- 1075 Oct, [facility] [place] [facility] [address] [id number] [place] [address]- 9313 Oct, [facility] [place] [facility] [address] [id number] [place] [address]- 3567 Oct, [facility] [place] [facility] [address] [id number] [place] [address]- 2109 Oct, [facility] [place] [facility] [address] [id number] [place] [address]- 2831 Oct, [facility] [place] [facility] [address] [id number] [place] [address]- 2743 Sep, [facility] [place] [facility] [address] [id number] [place] [address]- 6535 Sep, [facility] [place] [facility] [address] [id number] [place] [address]- 7287 Sep, [facility] [place] [facility] [address] [id number] [place] [address]- 9261 Sep, [facility] [place] [facility] [address] [id number] [place] [address]- 6163 Sep, [facility] [place] [facility] [address] [id number] [place] [address]- 0543 Sep, [facility] [place] [facility] [address] [id number] [place] [address]- 9320 Sep, [facility] [place] [facility] [address] [id number] [place] [address]- 3427 Sep, [facility] [place] [facility] [address] [id number] [place] [address]- 4124 Sep, [facility] [place] [facility] [address] [id number] [place] [address]- 9011 Sep, [facility] [place] [facility] [address] [id number], [place] [address]- 7398 August, [facility] [place] [facility] [address] [id number] [place] [address]- 7919 August, [facility] [place] [facility] [address] [id number] [place] [address]- 1820 August, [facility] [place] [facility] [address] [id number] [place] [address]- 4234 August, [facility] [place] [facility] [address] [id number] [place] [address]- 0866 August, [facility] [place] [facility] [address] [id number] [place] [address]- 5384 August, [facility] [place] [facility] [address] [id number] [place] [address]- 2976 August, [facility] [place] [facility] [address] [id number] [place] [address]- 9428 August, [facility] [place] [facility] [address] [id number] [place] [address]- 0373 August, [facility] [place] [facility] [address] [id number] [place] [address]- 5484 August, [facility] [place] [facility] [address] [id number] [place] [address]- 7050 August, [facility] [place] [facility] [address] [id number] [place] [address]- 8910 August, [facility] [place] [facility] [address] [id number] [place] [address]- 6479 Jul, [facility] [place] [facility] [address] [id number] [place] [address]- 7789 Jul, [facility] [place] [facility] [address] [id number] [place] [address]- 8208 Jul, [facility] [place] [facility] [address] [id number] [place] [address]- 1362 Jul, [facility] [place] [facility] [address] [id number] [place] [address]- 0784 Jul, [facility] [place] [facility] [address] [id number] [place] [address]- 7051 Jul, [facility] [place] [facility] [address] [id number] [place] [address]- 8918 Jun, [facility] [place] [facility] [address] [id number] [place] [address]- 3027 Jun, [facility] [place] [facility] [address] [id number] [place] [address]- 2639 May, [facility] [place] [facility] [address] [id number] [place] [address]- 3647 May, [facility] [place] [facility] [address] [id number] [place] [address]- 0176 Apr, [facility] [place] [facility] [address] [id number] [place] [address]- 5712 Apr, [facility] [place] [facility] [address] [id number] [place] [address]- 5573 Apr, [facility] [place] [facility] [address] [id number] [place] [address]- 8822 Apr, [facility] [place] [facility] [address] [id number] [place] [address]- 2571 Apr, [facility] [place] [facility] [address] [id number] [place] [address]- 8588 Apr, [facility] [place] [facility] [address] [id number] [place] [address]- 8542 Apr, [facility] [place] [facility] [address] [id number] [place] [address]- 7242 Apr, [facility] [place] [facility] [address] [id number] [place] [address]- 6899 Apr, [facility] [place] [facility] [address] [id number], [place] [address]- 3341 Apr, [facility] [place] [facility] [address] [id number] [place] [address]- 9137 Apr, [facility] [place] [facility] [address] [id number] [place] [address]- 1057 Apr, [facility] [place] [facility] [address] [id number] [place] [address]- 8762 Apr, [facility] [place] [facility] [address] [id number], [place] [address]- 5246 Mar, [facility] [place] [facility] [address] [id number] [place] [address]- 1032 Mar, [facility] [place] [facility] [address] [id number], [place] [address]- 6116 Mar, [facility] [place] [facility] [address] [id number] [place] [address]- 7102 Mar, [facility] [place] [facility] [address] [id number] [place] [address]- 1702 Feb, [facility] [place] [facility] [address] [id number] [place] [address]- 5836 Feb, [facility] [place] [facility] [address] [id number] [place] [address]- 6022 Feb, [facility] [place] [facility] [address] [id number], [place] [address]- 2905 Feb, [facility] [place] [facility] [address] [id number], [place] [address]- 2096 Jan, [facility] [place] [facility] [address] [id number], [place] [address]- 4816 14 Jan, 2013 [facility] [place] [facility] [address] [id number], [place] [address]- 3364 Jan, [facility] [place] [facility] [address] [id number], [place] [address]- 8990 Jan, [facility] [place] [facility] [address] [id number], [place] [address]- 1052 Jan, [facility] [place] [facility] [address] [id number], [place] [address]- 6787 Jan, [facility] [place] [facility] [address] [id number], [place] [address]- 6192 Jan, [facility] [place] [facility] [address] [id number], [place] [address]- 3539 Jan, [facility] [place] [facility] [address] [id number] [place] [address]- 6270 Jan, [facility] [address] [id number] [place] [address]- 3325 26 Dec, 2012 [facility] [place] [facility] [address] [id number] [place] [address]- 7926 16 Dec, 2012 [facility] [address] [id number] [place] [address]- 2186 16 Dec, 2012 [facility] [address] [id number] [place] [address]- 0725 13 Dec, 2012 [facility] [address] [id number] [place] [address]- 3696 Nov, [facility] [address] [id number] [place] [address]- 0696 Nov, [facility] [address] [id number] [place] [address]- 5599 Nov, [facility] [address] [id number] [place] [address]- 9473 Nov, [facility] [address] [id number] [place] [address]- 2940 Oct, [facility] [address] [id number] [place] [address]- 6241 Sep, [facility] [address] [id number] [place] [address]- 8444 August, [facility] [address] [id number] [place] [address]- 2112 August, [facility] [place] [facility] [address] [id number] [place] [address]- 2323 August, [facility] [place] [facility] [address] [id number] [place] [address]- 9746 August, [facility] [place] [facility] [address] [id number] [place] [address]- 3833 August, [facility] [address] [id number] [place] [address]- 3287 August, [facility] [address] [id number] [place] [address]- 9466 August, [facility] [address] [id number] [place] [address]- 2549 August, [facility] [address] [id number] [place] [address]- 7594 August, [facility] [address] [id number] [place] [address]- 2858 August, [facility] [address] [id number] [place] [address]- 3163 August, [facility] [address] [id number] [place] [address]- 2642 August, [facility] [address] [id number] [place] [address]- 4080 Jul, [facility] [address] [id number] [place] [address]- 3159 Jul, [facility] [address] [id number] [place] [address]- 8586 Jul, [facility] [address] [id number] [place] [address]- 0673 Jul, [facility] [place] [facility] [address] [id number], [place] [address]- 0155 Jul, [facility] [place] [facility] [address] [id number] [place] [address]- 3665 Jul, [facility] [place] [facility] [address] [id number] [place] [address]- 4993 Jul, [facility] [place] [facility] [address] [id number] [place] [address]- 0859 Jul, [facility] [place] [facility] [address] [id number] [place] [address] 2546 Jul, [facility] [address] [id number] [place] [address]- 9756 Jul, [facility] [place] [facility] [address] [facility] [id number] [place] [address]- 0516 Jul, [facility] [address] [facility] [id number] [place] [address]- 6586 Jun, [facility] [place] [facility] [address] [id number] [place] [address]- 0803 Jun, [facility] [address] [id number] [place] [address]- 5529 Jun, [facility] [place] [facility] [address] [facility] [id number] [place] [address]- 2546 Jun, [facility] [address] [id number] [place] [address]- 5860 May, [facility] [place] [facility] [address] [id number] [place] [address]- 8279 14 May, 2012 [facility] [place] [facility] [id number] [place] [address]- 9236 05 May, 2012 [facility] [address] [facility] [id number] [place] [address]- 2566 May, [facility] [place] [facility] [id number] [place] [address]- 2546 May, [facility] [place] [facility] [address] [facility] [id number] [place] [address]- 2546 May, [facility] [place] [facility] [address] [id number] [place] [address]- 2546 Apr, [facility] [place] [facility] [address] [facility] [id number] [place] [address]- 2546 Apr, [facility] [place] [facility] [address] [facility] [id number] [place] [address]- 6050 Apr, [facility] [place] [facility] [address] [id number] [place] [address]- 7219 Apr, [facility] [place] [facility] [address] [id number] [place] [address]- 8772 Mar, [facility] [place] [facility] [address] [id number] [place] 8824 Mar, [facility] [place] [facility] [address] [id number] [place] [address]- 7355 Mar, [facility] [place] [facility] [address] [id number] [place] [address]- 4799 Mar, [facility] [place] [facility] [address] [id number] [place] [address]- 7704 Mar, [facility] [place] [facility] [address] [id number] [place] [address]- 5445 Mar, [facility] [place] [facility] [address] [id number] [place] [address]- 6796 Mar, [facility] [place] [facility] [address] [id number] [place] [address]- 7184 Feb, [facility] [place] [facility] [address] [id number], [place] [address]- 7272 Feb, [facility] [place] [facility] [address] [id number], [place] [address]- 5318 Feb, [facility] [place] [facility] [address] [id number], [place] [address]- 1955 Feb, [facility] [place] [facility] [address] [id number] [place] [address]- 5548 Jan, [facility] [place] [facility] [address] [id number], [place] [address]- 9309 Jan, [facility] [place] [facility] [address] [id number], [place] [address]- 7092 Jan, [facility] [place] [facility] [address] [id number], [place] [address]- 1755 Jan, [facility] [address] [id number] [place] [address]- 8597 Jan, [facility] [place] [facility] [address] [id number] [place] [address]- 9353 Jan, [facility] [place] [facility] [address] [id number] [place] [address]- 9790 Dec, [facility] [place] [facility] [address] [id number] [place] [address] Dec, [facility] [place] [facility] [address] [id number] [place] [address] Nov, [facility] [place] [facility] [address] [id number] [place] [address] Sep, [facility] [id number] [place] [address] August, [facility] [place] [facility] [address] [id number] [place] [address] August, [facility] [address] [id number] [place] [address] August, [facility] [place] [facility] [address] [id number] [place] [address] August, [facility] [place] [facility] [address] [id number] [place] [address] August, [facility] [place] [facility] [address] [id number], [place] [address] Jun, [facility] [place] [facility] [address] [id number] [place] [address] Jun, [facility] [place] [facility] [address] [facility] [id number] [place] [address] Apr, [facility] [place] [facility] [address] [id number] [place] [address] Apr, [facility] [place] [facility] [address] [id number] [place] [address] 23 Mar, 2011 [facility] [place] [facility] [address] [id number] [place] [address] Feb, [facility] [place] [facility] [address] [id number] [place] [address] 14 Feb, 2011 [facility] [place] [facility] [address] [id number] [place] [address] 14 Feb, 2011 [facility] [place] [facility] [address] [id number] [place] [address] 17 Jan, 2011 [facility] [place] [facility] [address] [id number] [place] [address] 15 Jan, 2011 [facility] [place] [facility] [address] [id number] [place] [address] 15 Jan, 2011 [facility] [place] [facility] [address] [id number] [place] [address] 14 Jan, 2011 [facility] [place] [facility] [address] [id number] [place] [address] 15 May, 2010 [facility] [place] [facility] [address] [id number] [place] [address] Mar, [facility] [place] [facility] [address] [id number] [place] [address] Oct, [facility] [place] [facility] [address] [id number] [place] [address] Sep, [facility] [place] [facility] [address] [id number] [place] [address] Mar, [facility] [place] [facility] [address] [id number] [place] [address] Jan, [facility] [place] [facility] [address] [id number] [place] [address] Jan, [facility] [place] [facility] [address] [id number] [place] [address] May, IMMUNIZATIONS No Known Immunizations SOCIAL HISTORY Never Assessed REASON FOR VISIT Lab Results PLAN OF CARE VITAL SIGNS MEDICATIONS Unknown Medications RESULTS No Results PROCEDURES No Known procedures INSTRUCTIONS MEDICATIONS ADMINISTERED No Known Medications MEDICAL (GENERAL) HISTORY Type Description Date Medical History hypertension Medical History Colposcopy with loop electrode excision of the cervix was performed 06/2012, mild squamous atypia (no definite dyplasia). Performed at [facility] Dr. Joy. Medical History Acute suppurative [...]
--- OUTSIDE RECORDS SUMMARY | 2018-06-10 04:45 | XMS REPORT ---
Author Author BETI STAUFFER [facility] Address [address] [place] [address] Care Team Providers Care Weeder Thinner Name Role Phone BETI STAUFFER Unavailable PROBLEMS Type Condition ICD9-CM Code [id number] Code Onset Dates Condition Status SNOMED Code Problem Hematuria, unspecified type R31.9 Active 13530034 Problem Anxiety F41.9 Active 18193108 Problem Abnormal renal ultrasound R93.429 Active 25362876136245961 Problem Abnormal glucose R73.09 Active 466075450 Problem 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 Active 115513860 Problem Hypokalemia E87.6 Active 68981053 Problem Neck pain M54.2 Active 27111984 Problem Neuroforaminal stenosis of spine M99.89 Active 410277048428 Problem Mixed hyperlipidemia E78.2 Active 33391823 Problem Essential hypertension I10 Active 56877831 ALLERGIES No Information ENCOUNTERS Encounter Location Date Diagnosis [place] [address] 51385- [address]89 08 Feb, 2018 [place] [address] 60984- 7696 13 Dec, 2017 Lateral epicondylitis, right elbow M77.11 [place] [address] 39354- 7616 11 Dec, 2017 Allergic rhinitis due to pollen, unspecified seasonality J30.1 and Allergic conjunctivitis of both eyes H10.13 [place] [address] 41245- 9570 10 Dec, 2017 Neuroforaminal stenosis of spine M99.89 [place] [address] [place] [id number] [place] [address] 15681- 4124 06 Dec, 2017 Mixed hyperlipidemia E78.2 [place] [address] [place] [id number] [place] [address] 75426- 2994 Dec, Abnormal glucose R73.09 ; Abnormal renal ultrasound R93.429 ; Dysuria R30.0 ; Cystitis without hematuria N30.90 ; Hypokalemia E87.6 ; Mixed hyperlipidemia E78.2 and Hematuria, unspecified type R31.9 [place] [address] [place] [id number] [place] [address] 50776- 7512 Nov, Hypokalemia E87.6 ; Mixed hyperlipidemia E78.2 and Hematuria , unspecified type R31.9 [place] [address] [place] [id number] [place] [address] 95349- 2390 Nov, [place] [address] 96066- 3804 Nov, Hypokalemia E87.6 [place] [address] 55093- 1469 Nov, [place] [address] [place] [id number] [place] [address] 48765- 0415 Nov, Abnormal renal ultrasound R93.429 [place] [address] 21990- 1202 Nov, Abnormal renal ultrasound R93.429 [place] [address] [place] [id number] [place] [address] 22386- 5347 Nov, Hematuria, unspecified type R31.9 and Neuroforaminal stenosis of spine M99.89 [place] [address] [place] [id number] [place] [address] 11854- 7333 Nov, Dysuria R30.0 [place] [address] 93950- 7278 Oct, Lateral epicondylitis, right elbow M77.11 [place] [address] [place] [id number] [place] [address] 87599- 4903 Oct, Neuroforaminal stenosis of spine M99.89 ; Visit for TB skin test Z11.1 and Essential hypertension I10 [place] [address] [place] [id number] [place] [address] 70634- 6176 16 Oct, 2017 [place] [address] [place] [id number] [place] [address] 66548- 8548 Oct, Neuroforaminal stenosis of spine M99.89 [place] [address] 18839- 7021 10 Oct, 2017 Visit for TB skin test Z11.1 [place] [address] [place] [id number] [place] [address] 45494- 8106 05 Oct, 2017 Cystitis without hematuria N30.90 [place] [address] [place] [id number] [place] [address] 99186- 2325 28 Sep, 2017 Screening breast examination Z12.39 [place] [address] 63396- 7170 26 Sep, 2017 Dysuria R30.0 and Cystitis without hematuria N30.90 [place] [address] [place] [id number] [place] [address] 74231- 3148 14 Sep, 2017 Essential hypertension I10 and Neuroforaminal stenosis of spine M99.89 [place] [address] [place] [id number] [place] [address] 19351- 6072 Sep, Abnormal glucose R73.09 [place] [address] 11044- 1830 August, Lateral epicondylitis, right elbow M77.11 [place] [address] [place] [id number] [place] [address] 32848- 9393 August, Screen for STD (sexually transmitted disease) Z11.3 [place] [address] [place] [id number] [place] [address] 18479- 2575 August, Neuroforaminal stenosis of spine M99.89 ; Mixed hyperlipidemia E78.2 ; Elevated fasting glucose R73.01 ; Screening mammogram, encounter for Z12.31 and Encounter for well woman exam without gynecological exam Z00.00 [facility] [address] [place] [id number] [place] [address] 99952- 8067 August, Neuroforaminal stenosis of spine M99.89 [facility] [address] [place] [id number] [place] [address] 53734- 3160 August, Essential hypertension I10 ; Hypokalemia E87.6 and Mixed hyperlipidemia E78.2 [place] [address] 48125- 7553 Jul, [place] [address] [place] [id number] [place] [address] 62261- 4230 Jul, Neuroforaminal stenosis of spine M99.89 [place] [address] [place] [id number] [place] [address] 33533- 3408 Jul, Lateral epicondylitis, right elbow M77.11 [place] [address] 52051- 9247 Jul, [place] [address] [place] [id number] [place] [address] 51386- 8197 Jun, High ankle sprain of right lower extremity, initial encounter S93.431A [place] [address] [place] [id number] [place] [address] 93066- 3310 Jun, Essential hypertension I10 [place] [address] [place] [id number] [place] [address] 16785- 4588 Jun, [facility] [address] [place] [id number] [place] [address] 63963- 4681 Jun, [place] [address] [place] [id number] [place] [address] 10718- 9614 Jun, Neuroforaminal stenosis of spine M99.89 [facility] [address] [place] [id number] [place] [address] 99668- 8663 Jun, Pain of right upper extremity M79.601 and Essential hypertension I10 [place] [address] [place] [id number] [place] [address] 75254- 3001 Jun, [place] [address] [place] [id number] [place] [address] 46404- 0036 Jun, Dysuria R30.0 ; Acute cystitis with hematuria N30.01 and Screen for STD (sexually transmitted disease) Z11.3 [place] [address] [place] [id number] [place] [address] 64412- 7531 May, 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 [place] [address] [place] [id number] [place] [address] 84696- 7241 May, Essential hypertension I10 [place] [id number] [place] [address] 96472- 5420 May, Neuroforaminal stenosis of spine M99.89 [place] [id number] [place] [address] 72497- 8054 Apr, Allergic reaction, initial encounter T78.40XA [place] [address] [place] [id number] [place] [address] 13395- 5541 Apr, Low back pain, unspecified back pain laterality, unspecified chronicity, with sciatica presence unspecified M54.5 ; Acute cystitis with hematuria N30.01 ; Neuroforaminal stenosis of spine M99.89 ; Bilateral acute serous otitis media, recurrence not specified H65.03 ; Mixed hyperlipidemia E78.2 ; Essential hypertension I10 ; Immunization counseling Z71.89 and Encounter for immunization Z23 [place] [address] [place] [id number] [place] [address] 28435- 1309 Apr, Neck pain M54.2 [place] [id number] [place] [address] 86197- 9330 Mar, Neuroforaminal stenosis of spine M99.89 [place] [address] [place] [id number] [place] [address] 09783- 1332 Mar, Pharyngitis due to other organism J02.8 [place] [address] [place] [id number] [place] [address] 21198- 9406 Feb, Neuroforaminal stenosis of spine M99.89 [facility] [address] [place] [id number] [place] [address] 77528- 3570 Feb, UTI (urinary tract infection) N39.0 [facility] [address] [place] [id number] [place] [address] 78861- 4473 Feb, Recent urinary tract infection Z87.440 ; Neuroforaminal stenosis of spine M99.89 ; Neck pain M54.2 ; 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 and Recurrent UTI N39.0 [facility] [address] 37595- 0842 Feb, [facility] [address] [place] [id number] [place] [address] 98887- 2486 Jan, Neuroforaminal stenosis of spine M99.89 [facility] [address] 93002- 2141 Dec, Neuroforaminal stenosis of spine M99.89 [facility] [address] [place] [id number] [place] [address] 54989- 1108 Dec, Acute seasonal allergic rhinitis due to pollen J30.1 [place] [address] [place] [id number] [place] [address] 12883- 6802 Dec, [facility] [address] 89881- 6052 Dec, Acute seasonal allergic rhinitis, unspecified trigger J30.2 ; Allergic conjunctivitis of both eyes H10.13 and Dysfunction of both eustachian tubes H69.83 [facility] [address] [place] [id number] [place] [address] 80457- 7284 Dec, [facility] [address] [place] [id number] [place] [address] 39188- 8664 06 Dec, 2016 Nevus D22.9 [facility] [address] 70405- 6363 Nov, 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 and Neuroforaminal stenosis of spine M99.89 [facility] [address] [place] [id number] [place] [address] 14436- 7301 Nov, Neuroforaminal stenosis of spine M99.89 ; Essential hypertension I10 ; Mixed hyperlipidemia E78.2 ; Hypokalemia E87.6 ; Neck pain M54.2 and Nevus D22.9 [facility] [address] [place] [id number] [place] [address] 64583- 4406 Oct, Neuroforaminal stenosis of spine M99.89 [facility] [address] [place] [id number] [place] [address] 61366- 8744 Sep, Neuroforaminal stenosis of spine M99.89 [facility] [address] [place] [id number] [place] [address] 93392- 5682 Sep, [facility] [address] [place] [id number] [place] [address] 07533- 0428 August, [facility] [address] [place] [id number] [place] [address] 36629- 9271 August, Neck pain M54.2 and Neuroforaminal stenosis of spine M99.89 [facility] [address] [place] [id number] [place] [address] 77831- 8799 August, Routine gynecological examination Z01.419 and Screening breast examination Z12.39 [facility] [address] [place] [address] 45066- 7677 Jul, [facility] [address] [place] [id number] [place] [address] 56427- 1857 Jul, [facility] [address] [place] [id number] [place] [address] 90289- 2596 Jul, Neuroforaminal stenosis of spine M99.89 [facility] [address] [place] [id number] [place] [address] 04993- 1754 Jul, [place] [address] [place] [address] 91080- 3863 Jul, 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 [place] [address] [place] [id number] [place] [address] 70788- 6611 Jul, [place] [address] [place] [id number] [place] [address] 91473- 1836 Jul, [place] [address] [place] [id number] [place] [address] 74232- 3661 Jun, Neuroforaminal stenosis of spine M99.89 [place] [address] [place] [id number] [place] [address] 08815- 8565 Jun, Uterine leiomyoma, unspecified location D25.9 and Allergic reaction caused by a drug, initial encounter T78.40XA [place] [address] [place] [id number] [place] [address] 75370- 3640 Jun, [place] [address] [place] [id number] [place] [address] 43480- 5780 May, UTI symptoms R39.9 and Pain of right sacroiliac joint M53.3 [place] [address] [place] [id number] [place] [address] 86822- 2533 May, Neuroforaminal stenosis of spine M99.89 [place] [address] [place] [id number] [place] [address] 14457- 2354 May, [place] [address] [place] [id number] [place] [address] 88204- 7573 May, Acute mucoid otitis media of left ear H65.112 and Acute non- recurrent maxillary sinusitis J01.00 [place] [address] [place] [id number] [place] [address] 27293- 5911 May, Acute bacterial conjunctivitis of both eyes H10.33 ; Left arm pain M79.602 and Hypokalemia E87.6 [place] [address] [place] [address] [place] [address]- 5904 Apr, [place] [address] [place] [id number] [place] [address] 79000- 3704 Apr, Neuroforaminal stenosis of spine M99.89 ; Neck pain M54.2 ; 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 ; Mixed hyperlipidemia E78.2 ; Essential hypertension I10 and Hypokalemia E87.6 [place] [address] 55454- 0274 Mar, Oral candidiasis B37.0 ; Neuroforaminal stenosis of spine M99.89 ; Neck pain M54.2 and 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 [place] [address] [place] [id number] [place] [address] 92243- 7651 Feb, [place] [address] [place] [id number] [place] [address] 52508- 6442 Feb, [place] [address] [place] [id number] [place] [address] 17856- 6218 Feb, UTI (urinary tract infection) N39.0 [place] [address] [place] [id number] [place] [address] 51053- 9588 Feb, Dysuria R30.0 [place] [address] [place] [id number] [place] [address] 93487- 1175 Feb, Dysuria R30.0 [place] [address] [place] [id number] [place] [address] 82217- 7269 Feb, Neuroforaminal stenosis of spine M99.89 ; Neck pain M54.2 ; Essential hypertension I10 ; 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 ; Dysuria R30.0 ; Abnormal MRI, shoulder R93.8 and Acute cystitis without hematuria N30.00 [facility] [address] [place] [address] 16728- 0600 Jan, [facility] [address] [place] [id number] [place] [address] 17058- 7324 Jan, [facility] [address] [address]- 5578 Jan, [facility] [address] [place] [id number] [place] [address] 00114- 7315 Jan, Abnormal MRI R93.8 [facility] [address] [place] [id number] [place] [address] 68146- 6095 29 Dec, [address] [facility] [address] [place] [id number] [place] [address] 80629 -2723 15 Dec, 2015 Acute pain of left shoulder M25.512 [facility] [address] [place] [id number] [place] [address] 81464- 7935 09 Dec, 2015 [facility] [address] [place] [id number] [place] [address] 56417- 7976 08 Dec, 2015 [facility] [address] [place] [id number] [place] [address] 09784- 0804 07 Dec, 2015 Acute pain of left shoulder M25.512 [facility] [address] [place] [id number] [place] [address] 85489- 2654 Nov, [facility] [address] [place] [id number] [place] [address] 42850- 1371 16 Nov, 2015 Neuroforaminal stenosis of spine M99.89 ; Neck pain M54.2 ; Abnormal mammogram R92.8 ; Essential hypertension I10 and 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 [facility] [address] [place] [id number] [place] [address] 89151- 4955 Nov, [facility] [address] [place] [id number] [place] [address] 69339- 1102 Oct, Acute stress disorder F43.0 [facility] [address] [place] [id number] [place] [address] 29296- 3465 Oct, [facility] [address] [place] [id number] [place] [address] 67266- 6285 Oct, [facility] [address] [address]- 0786 Oct, [facility] [address] [place] [id number] [place] [address] 26896- 1672 Sep, [facility] [address] [place] [address] 92359- 3764 August, [facility] [address] [place] [id number] [place] [address] 09816- 9902 Jul, Neuroforaminal stenosis of spine M99.89 ; Neck pain M54.2 ; Abnormal mammogram R92.8 and Essential hypertension I10 [facility] [address] [place] [id number] [place] [address] 71031- 6603 Jul, [facility] [address] [place] [id number] [place] [address] 88169- 5497 Jul, [facility] [address] [place] [id number] [place] [address] 99290- 1944 Jul, Abnormal mammogram R92.8 [facility] [address] [place] [address] 21221- 9045 Jul, [facility] [address] [place] [id number] [place] [address] 95418- 3696 Jul, UTI (urinary tract infection) N39.0 [facility] [address] [place] [address] 36929- 2914 Jul, Dysuria R30.0 [facility] [address] [place] [address] 23308- 4558 Jun, [facility] [address] [place] [id number] [place] [address] 42272- 6447 Jun, [facility] [address] [place] [id number] [place] [address] 40003- 1635 Jun, Hypokalemia E87.6 and Hematuria R31.9 [facility] [address] [place] [id number] [place] [address] 39477- 1903 Jun, Hypokalemia E87.6 [place] [address] [place] [id number] [place] [address] 20691- 8416 Jun, [place] [address] [place] [id number] [place] [address] 92277- 1667 Jun, Hypokalemia E87.6 [place] [address] [place] [id number] [place] [address] 52883- 0591 Jun, Hypokalemia E87.6 [place] [address] [place] [id number] [place] [address] 60230- 2848 15 Jun, 2015 Neuroforaminal stenosis of spine M99.89 ; Hypokalemia E87.6 ; Neck pain M54.2 ; Essential hypertension I10 ; Mixed hyperlipidemia E78.2 and Screening breast examination Z12.39 [place] [address] [place] [id number] [place] [address] 65001- 2614 Jun, Dysuria R30.0 ; UTI (urinary tract infection) N39.0 and Hematuria R31.9 [place] [address] [place] [id number] [place] [address] 48504- 4214 May, [place] [address] [place] [id number] [place] [address] 83025- 8244 May, High risk sexual behavior Z72.51 ; Hypokalemia E87.6 ; Neuroforaminal stenosis of spine M99.89 ; Neck pain M54.2 ; Essential hypertension I10 ; Mixed hyperlipidemia E78.2 ; STD exposure Z20.2 and Concern about STD in female without diagnosis Z71.1 [place] [address] [place] [id number] [place] [address] 63610- 4220 16 May, 2015 Neuroforaminal stenosis of spine M99.89 ; Neck pain M54.2 ; Hypokalemia E87.6 ; Essential hypertension I10 and Mixed hyperlipidemia E78.2 [place] [address] [place] [id number] [place] [address] 08176- 8428 May, [facility] [id number] [place] [address] 84833 -2723 08 May, 2015 High risk sexual behavior Z72.51 ; STD exposure Z20.2 and Concern about STD in female without diagnosis Z71.1 [facility] [id number] [place] [address] 59148- 5569 05 May, 2015 [facility] [address] 17681- 2863 Apr, Neuroforaminal stenosis of spine M99.89 ; Mixed hyperlipidemia E78.2 ; Essential hypertension I10 and Hypokalemia E87.6 [place] [address] [place] [id number] [place] [address] 31017- 9847 Mar, [facility] [address] [place] [id number] [place] [address] 98507- 8458 Mar, Hypokalemia E87.6 [place] [address] [place] [id number] [place] [address] 43188- 5920 Mar, Neuroforaminal stenosis of spine M99.89 ; Mixed hyperlipidemia E78.2 ; Neck pain M54.2 ; Essential hypertension I10 ; Abnormal fasting glucose R73.09 ; Hypokalemia E87.6 and Constipation K59.00 [place] [address] [place] [id number] [place] [address] 19637- 3405 Feb, Neuroforaminal stenosis of spine M99.89 ; Mixed hyperlipidemia E78.2 ; Neck pain M54.2 ; Essential hypertension I10 ; Abnormal fasting glucose R73.09 ; Hypokalemia E87.6 and Constipation K59.00 [place] [address] [place] [id number] [place] [address] 46017- 9673 Feb, Elevated fasting blood sugar R73.01 [place] [id number] [place] [address] 88075- 3142 Feb, Elevated fasting blood sugar R73.01 [place] [address] [place] [id number] [place] [address] 19329- 7760 Feb, Hair loss L65.9 [place] [address] [place] [id number] [place] [address] 64839- 3898 Feb, Sinusitis J32.9 ; Essential hypertension I10 and Hair loss L65.9 [place] [address] [place] [id number] [place] [address] 95222- 5032 Jan, [place] [address] 95820- 8469 Jan, Essential hypertension I10 ; Neuroforaminal stenosis of spine M99.89 ; Neck pain M54.2 ; Mixed hyperlipidemia E78.2 and Anxiety F41.9 [place] [address] [place] [id number] [place] [address] 78969- [address]695 Jan, [place] [address] [address] Jan, Mixed hyperlipidemia E78.2 ; Essential (primary) hypertension I10 ; Strain of muscle, fascia and tendon at neck level, subsequent encounter S16.1XXD and Tension-type headache, unspecified, not intractable G44.209 [place] [address] [address] [place] [id number] [place] [address] 48569- 2606 Dec, Lumbar back pain 724.2 and Neuroforaminal stenosis of spine 724.00 [place] [address] [address] [place] [id number] [place] [address] 16006- 6172 Nov, [place] [address] [address] Nov, Lumbar back pain 724.2 and Neuroforaminal stenosis of spine 724.00 [place] [address] [address]- [address] Nov, Edema 782.3 ; Lumbar back pain 724.2 ; Essential hypertension, benign 401.1 ; Hyperlipemia 272.4 ; Neuroforaminal stenosis of spine 724.00 and Post-concussion headache 339.20 [place] [address] [address] Nov, [facility] [id number] [place] [address] 01467- [address]44 Nov, [facility] [id number] [place] [address] 20557- 4658 Oct, Essential hypertension, benign 401.1 [facility] [address] [place] [id number] [place] [address] 49030- 7441 Oct, Edema 782.3 ; Lumbar back pain 724.2 ; Essential hypertension, benign 401.1 ; Hyperlipemia 272.4 ; Neuroforaminal stenosis of spine 724.00 and Post-concussion headache 339.20 [facility] [id number] [place] [address] 84224- 9339 Oct, [facility] [address] [place] [id number] [place] [address] 37687- 3177 Oct, Edema 782.3 [facility] [address] [place] [id number] [place] [address] 80157- 7013 Oct, Lumbar back pain 724.2 [facility] [id number] [place] [address] 01991- 9843 Oct, Cervicalgia 723.1 ; Lumbar back pain 724.2 and High risk medication use V58.69 [facility] [id number] [place] [address] 42482- 9151 Sep, [facility] [id number] [place] [address] 38658- 3411 Sep, Lumbar strain 847.2 [facility] [id number] [place] [address] 45545- 7856 August, Edema 782.3 and Eustachian tube dysfunction 381.81 [facility] [address] [address] August, [facility] [address] [address] August, Eustachian tube dysfunction 381.81 [facility] [id number] [place] [address], [place] [address] Jul, Otalgia 388.70 and Otitis media 382.9 [facility] [id number] [place] [address] 09[address] Jul, [facility] [id number] [place] [address] 3150 Jul, [facility] [id number] [place] [address], [place] [address]- 2938 Jul, [facility] [address] [id number] [address] Jul, [facility] [id number] [place] [address] 3560 Jul, [facility] [id number] [address] 238[address] Jun, [facility] [id number], [place] [address]- 2256 Jun, [facility] [id number], [place] [address] 9[address] Jun, [facility] [id number] [address] 4[address] May, [facility] [id number] [address] 0048 May, [facility] [id number] [address] May, [facility] [id number] [address] [address] May, [facility] [id number] 85[address] May, [facility] [place] [facility] [address] [id number] [place] [address]- 0521 May, [facility] [place] [facility] [address] [id number] [place] [address]- 1721 May, [facility] [place] [facility] [address] [id number] [place] [address]- 3572 May, [facility] [place] [facility] [address] [id number] [place] [address]- 5522 May, [facility] [place] [facility] [address] [id number] [place] [address]- 0119 May, [facility] [place] [facility] [address] [id number] [place] [address]- 2889 Apr, [facility] [place] [facility] [address] [id number] [place] [address]- 1259 Apr, [facility] [place] [facility] [address] [id number] [place] [address]- 3448 Apr, [facility] [place] [facility] [address] [id number] [place] [address]- 8873 Apr, [facility] [place] [facility] [address] [id number] [place] [address]- 0484 Apr, [facility] [place] [facility] [address] [id number] [place] [address]- 6014 Apr, [facility] [place] [facility] [address] [id number] [place] [address]- 7969 Apr, [facility] [place] [facility] [address] [id number] [place] [address]- 2619 Apr, [facility] [place] [facility] [address] [id number] [place] [address]- 2073 Apr, [facility] [place] [facility] [address] [id number] [place] [address]- 7832 Apr, [facility] [place] [facility] [address] [id number], [place] [address]- 8262 Apr, [facility] [place] [facility] [address] [id number] [place] [address]- 8614 Apr, [facility] [place] [facility] [address] [id number] [place] [address]- 6403 Apr, [facility] [place] [facility] [address] [facility] [id number] [place] [address]- 0076 Apr, [facility] [place] [facility] [address] [id number] [place] [address]- 8044 Apr, [facility] [place] [facility] [address] [facility] [id number] [place] [address]- 7312 Mar, [facility] [place] [facility] [address] [facility] [id number] [place] [address]- 2479 Mar, [facility] [place] [facility] [address] [facility] [id number], [place] [address]- 4172 Mar, [facility] [place] [facility] [address] [facility] [id number] [place] [address]- 6014 Mar, [facility] [place] [facility] [address] [facility] [id number] [place] [address]- 4553 Feb, [facility] [place] [facility] [address] [facility] [id number], [place] [address]- 2439 Feb, [facility] [place] [facility] [address] [facility] [id number], [place] [address]- 2517 Feb, [facility] [place] [facility] [address] [facility] [id number], [place] [address]- 7321 Feb, [facility] [place] [facility] [address] [id number] [address]- 2101 Jan, [facility] [place] [facility] [address] [facility] [id number], [place] [address]- 2608 Jan, [facility] [place] [facility] [address] [facility] [id number][place] [address]- 6795 Jan, [facility] [place] [facility] [address] [id number] [place] [address]- 5816 Jan, [facility] [place] [facility] [address] [id number] [place] [address]- 3567 Jan, [facility] [place] [facility] [address] [id number] [place] [address]- 2205 Jan, [facility] [place] [facility] [address] [id number] [place] [address]- 3554 Jan, [facility] [place] [facility] [address] [id number] [place] [address]- 7342 Jan, [facility] [place] [facility] [address] [id number] [place] [address]- 8937 Dec, [facility] [place] [facility] [address] [id number] [place] [address]- 2905 Dec, [facility] [place] [facility] [address] [id number] [place] [address]- 8668 Dec, [facility] [place] [facility] [address] [id number] [place] [address]- 2319 Dec, [facility] [place] [facility] [address] [id number] [place] [address]- 1582 Oct, [facility] [place] [facility] [address] [id number] [place] [address]- 3573 Oct, [facility] [place] [facility] [address] [id number] [place] [address]- 8961 Oct, [facility] [place] [facility] [address] [id number] [place] [address]- 6001 Oct, [facility] [place] [facility] [address] [id number] [place] [address]- 6997 Oct, [facility] [place] [facility] [address] [id number] [place] [address]- 0997 Oct, [facility] [place] [facility] [address] [id number] [place] [address]- 3948 Oct, [facility] [place] [facility] [address] [id number] [place] [address]- 0535 Oct, [facility] [place] [facility] [address] [id number] [place] [address]- 6999 Sep, [facility] [place] [facility] [address] [id number] [place] [address]- 0842 Sep, [facility] [place] [facility] [address] [id number] [place] [address]- 1382 Sep, [facility] [place] [facility] [address] [id number] [place] [address]- 2085 Sep, [facility] [place] [facility] [address] [id number] [place] [address]- 7802 Sep, [facility] [place] [facility] [address] [id number] [place] [address]- 5310 Sep, [facility] [place] [facility] [address] [id number] [place] [address]- 9815 Sep, [facility] [place] [facility] [address] [id number] [place] [address]- 0347 Sep, [facility] [place] [facility] [address] [id number] [place] [address]- 1189 Sep, [facility] [place] [facility] [address] [id number] [place] [address]- 4381 Sep, [facility] [place] [facility] [address] [id number], [place] [address]- 7268 August, [facility] [place] [facility] [address] [id number] [place] [address]- 1640 August, [facility] [place] [facility] [address] [id number] [place] [address]- 7339 August, [facility] [place] [facility] [address] [id number] [place] [address]- 5739 August, [facility] [place] [facility] [address] [id number] [place] [address]- 3497 August, [facility] [place] [facility] [address] [id number] [place] [address]- 2212 August, [facility] [place] [facility] [address] [id number] [place] [address]- 9643 August, [facility] [place] [facility] [address] [id number] [place] [address]- 2639 August, [facility] [place] [facility] [address] [id number] [place] [address]- 0204 August, [facility] [place] [facility] [address] [id number] [place] [address]- 6411 August, [facility] [place] [facility] [address] [id number] [place] [address]- 4169 August, [facility] [place] [facility] [address] [id number] [place] [address]- 9810 August, [facility] [place] [facility] [address] [id number] [place] [address]- 3596 Jul, [facility] [place] [facility] [address] [id number] [place] [address]- 3394 Jul, [facility] [place] [facility] [address] [id number] [place] [address]- 2933 Jul, [facility] [place] [facility] [address] [id number] [place] [address]- 8436 Jul, [facility] [place] [facility] [address] [id number] [place] [address]- 7231 Jul, [facility] [place] [facility] [address] [id number] [place] [address]- 4909 Jul, [facility] [place] [facility] [address] [id number] [place] [address]- 6634 Jun, [facility] [place] [facility] [address] [id number] [place] [address]- 5968 Jun, [facility] [place] [facility] [address] [id number] [place] [address]- 9680 May, [facility] [place] [facility] [address] [id number] [place] [address]- 9216 May, [facility] [place] [facility] [address] [id number] [place] [address]- 6245 Apr, [facility] [place] [facility] [address] [id number] [place] [address]- 5348 Apr, [facility] [place] [facility] [address] [id number] [place] [address]- 2831 Apr, [facility] [place] [facility] [address] [id number] [place] [address]- 4157 Apr, [facility] [place] [facility] [address] [id number] [place] [address]- 9404 Apr, [facility] [place] [facility] [address] [id number] [place] [address]- 7276 Apr, [facility] [place] [facility] [address] [id number] [place] [address]- 8853 Apr, [facility] [place] [facility] [address] [id number] [place] [address]- 5132 Apr, [facility] [place] [facility] [address] [id number] [place] [address]- 9119 Apr, [facility] [place] [facility] [address] [id number], [place] [address]- 6509 Apr, [facility] [place] [facility] [address] [id number] [place] [address]- 7992 Apr, [facility] [place] [facility] [address] [id number] [place] [address]- 5819 Apr, [facility] [place] [facility] [address] [id number] [place] [address]- 2115 Apr, [facility] [place] [facility] [address] [id number], [place] [address]- 0859 Mar, [facility] [place] [facility] [address] [id number] [place] [address]- 0772 Mar, [facility] [place] [facility] [address] [id number], [place] [address]- 4872 Mar, [facility] [place] [facility] [address] [id number] [place] [address]- 3661 Mar, [facility] [place] [facility] [address] [id number] [place] [address]- 6628 Feb, [facility] [place] [facility] [address] [id number] [place] [address]- 1948 Feb, [facility] [place] [facility] [address] [id number] [place] [address]- 0939 Feb, [facility] [place] [facility] [address] [id number], [place] [address]- 3093 Feb, [facility] [place] [facility] [address] [id number], [place] [address]- 5532 Jan, [facility] [place] [facility] [address] [id number], [place] [address]- 8970 14 Jan, 2013 [facility] [place] [facility] [address] [id number], [place] [address]- 7606 Jan, [facility] [place] [facility] [address] [id number], [place] [address]- 5688 Jan, [facility] [place] [facility] [address] [id number], [place] [address]- 8080 Jan, [facility] [place] [facility] [address] [id number], [place] [address]- 4129 Jan, [facility] [place] [facility] [address] [id number], [place] [address]- 9421 Jan, [facility] [place] [facility] [address] [id number], [place] [address]- 8398 Jan, [facility] [place] [facility] [address] [id number] [place] [address]- 9200 Jan, [facility] [address] [id number] [place] [address]- 9266 26 Dec, 2012 [facility] [place] [facility] [address] [id number] [place] [address]- 2396 16 Dec, 2012 [facility] [address] [id number] [place] [address]- 2626 16 Dec, 2012 [facility] [address] [id number] [place] [address]- 5661 13 Dec, 2012 [facility] [address] [id number] [place] [address]- 5702 Nov, [facility] [address] [id number] [place] [address]- 2831 Nov, [facility] [address] [id number] [place] [address]- 8380 Nov, [facility] [address] [id number] [place] [address]- 5610 Nov, [facility] [address] [id number] [place] [address]- 6819 Oct, [facility] [address] [id number] [place] [address]- 9630 Sep, [facility] [address] [id number] [place] [address]- 7427 August, [facility] [address] [id number] [place] [address]- 0028 August, [facility] [place] [facility] [address] [id number] [place] [address]- 2745 August, [facility] [place] [facility] [address] [id number] [place] [address]- 6676 August, [facility] [place] [facility] [address] [id number] [place] [address]- 9255 August, [facility] [address] [id number] [place] [address]- 7527 August, [facility] [address] [id number] [place] [address]- 4366 August, [facility] [address] [id number] [place] [address]- 0789 August, [facility] [address] [id number] [place] [address]- 6640 August, [facility] [address] [id number] [place] [address]- 9388 August, [facility] [address] [id number] [place] [address]- 6457 August, [facility] [address] [id number] [place] [address]- 2732 August, [facility] [address] [id number] [place] [address]- 3862 Jul, [facility] [address] [id number] [place] [address]- 2302 Jul, [facility] [address] [id number] [place] [address]- 2968 Jul, [facility] [address] [id number] [place] [address]- 0281 Jul, [facility] [place] [facility] [address] [id number], [place] [address]- 8862 Jul, [facility] [place] [facility] [address] [id number] [place] [address]- 0134 Jul, [facility] [place] [facility] [address] [id number] [place] [address]- 8463 Jul, [facility] [place] [facility] [address] [id number] [place] [address]- 4101 Jul, [facility] [place] [facility] [address] [id number] [place] [address] 2546 Jul, [facility] [address] [id number] [place] [address]- 9686 Jul, [facility] [place] [facility] [address] [facility] [id number] [place] [address]- 1796 Jul, [facility] [address] [facility] [id number] [place] [address]- 2406 Jun, [facility] [place] [facility] [address] [id number] [place] [address]- 7870 Jun, [facility] [address] [id number] [place] [address]- 7422 Jun, [facility] [place] [facility] [address] [facility] [id number] [place] [address]- 2546 Jun, [facility] [address] [id number] [place] [address]- 9508 May, [facility] [place] [facility] [address] [id number] [place] [address]- 3023 14 May, 2012 [facility] [place] [facility] [id number] [place] [address]- 4226 05 May, 2012 [facility] [address] [facility] [id number] [place] [address]- 4096 May, [facility] [place] [facility] [id number] [place] [address]- 2546 May, [facility] [place] [facility] [address] [facility] [id number] [place] [address]- 2546 May, [facility] [place] [facility] [address] [id number] [place] [address]- 2546 Apr, [facility] [place] [facility] [address] [facility] [id number] [place] [address]- 2546 Apr, [facility] [place] [facility] [address] [facility] [id number] [place] [address]- 7095 Apr, [facility] [place] [facility] [address] [id number] [place] [address]- 4449 Apr, [facility] [place] [facility] [address] [id number] [place] [address]- 5246 Mar, [facility] [place] [facility] [address] [id number] [place] 8558 Mar, [facility] [place] [facility] [address] [id number] [place] [address]- 5989 Mar, [facility] [place] [facility] [address] [id number] [place] [address]- 8989 Mar, [facility] [place] [facility] [address] [id number] [place] [address]- 5308 Mar, [facility] [place] [facility] [address] [id number] [place] [address]- 6442 Mar, [facility] [place] [facility] [address] [id number] [place] [address]- 1551 Mar, [facility] [place] [facility] [address] [id number] [place] [address]- 5420 Feb, [facility] [place] [facility] [address] [id number], [place] [address]- 2394 Feb, [facility] [place] [facility] [address] [id number], [place] [address]- 1408 Feb, [facility] [place] [facility] [address] [id number], [place] [address]- 1594 Feb, [facility] [place] [facility] [address] [id number] [place] [address]- 3657 Jan, [facility] [place] [facility] [address] [id number], [place] [address]- 4062 Jan, [facility] [place] [facility] [address] [id number], [place] [address]- 2940 Jan, [facility] [place] [facility] [address] [id number], [place] [address]- 3853 Jan, [facility] [address] [id number] [place] [address]- 2342 Jan, [facility] [place] [facility] [address] [id number] [place] [address] Jan, [facility] [place] [facility] [address] [id number] [place] [address] Dec, [facility] [place] [facility] [address] [id number] [place] [address] Dec, [facility] [place] [facility] [address] [id number] [place] [address] Nov, [facility] [place] [facility] [address] [id number] [place] [address] Sep, [facility] [id number] [place] [address] August, [facility] [place] [facility] [address] [id number] [place] [address] August, [facility] [address] [id number] [place] [address] August, [facility] [place] [facility] [address] [id number] [place] [address] August, [facility] [place] [facility] [address] [id number] [place] [address] August, [facility] [place] [facility] [address] [id number], [place] [address] Jun, [facility] [place] [facility] [address] [id number] [place] [address] Jun, [facility] [place] [facility] [address] [facility] [id number] [place] [address] Apr, [facility] [place] [facility] [address] [id number] [place] [address] Apr, [facility] [place] [facility] [address] [id number] [place] [address] 23 Mar, 2011 [facility] [place] [facility] [address] [id number] [place] [address] Feb, [facility] [place] [facility] [address] [id number] [place] [address] 14 Feb, 2011 [facility] [place] [facility] [address] [id number] [place] [address] 14 Feb, 2011 [facility] [place] [facility] [address] [id number] [place] [address] 17 Jan, 2011 [facility] [place] [facility] [address] [id number] [place] [address] 15 Jan, 2011 [facility] [place] [facility] [address] [id number] [place] [address] 15 Jan, 2011 [facility] [place] [facility] [address] [id number] [place] [address] 14 Jan, 2011 [facility] [place] [facility] [address] [id number] [place] [address] 15 May, 2010 [facility] [place] [facility] [address] [id number] [place] [address] Mar, [facility] [place] [facility] [address] [id number] [place] [address] Oct, [facility] [place] [facility] [address] [id number] [place] [address] Sep, [facility] [place] [facility] [address] [id number] [place] [address] Mar, [facility] [place] [facility] [address] [id number] [place] [address] Jan, [facility] [place] [facility] [address] [id number] [place] [address] Jan, [facility] [place] [facility] [address] [id number] [place] [address] May, IMMUNIZATIONS No Known Immunizations SOCIAL HISTORY Never Assessed REASON FOR VISIT Lab (walk-in) PLAN OF CARE VITAL SIGNS MEDICATIONS Unknown Medications RESULTS No Results PROCEDURES Procedure Date Ordered Result Body Site COMPREHEN METABOLIC PANEL Nov 27, 2017 VENIPUNCT, ROUTINE* Nov 27, 2017 INSTRUCTIONS MEDICATIONS ADMINISTERED No Known Medications MEDICAL (GENERAL) HISTORY Type Description Date Medical History hypertension Medical History Colposcopy with loop electrode excision of the cervix was performed 06/2012, mild squamous atypia (no definite dyplasia). Performed at [facility] Dr. Joy. Medical History Acute suppurative [...]
--- OUTSIDE RECORDS SUMMARY | 2018-06-10 04:46 | XMS REPORT ---
Author Author BETI STAUFFER [facility] Address [address] [place] [address] Care Team Providers Care Tankage Supervisor Name Role Phone BETI STAUFFER Unavailable PROBLEMS Type Condition ICD9-CM Code KLA93-SO Code Onset Dates Condition Status SNOMED Code Problem Hematuria, unspecified type R31.9 Active 16977123 Problem Anxiety F41.9 Active 00594995 Problem Abnormal renal ultrasound R93.429 Active [id number] Problem Abnormal glucose R73.09 Active 653377810 Problem 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 Active 177692649 Problem Hypokalemia E87.6 Active 26853706 Problem Neck pain M54.2 Active 18513705 Problem Neuroforaminal stenosis of spine M99.89 Active 076376129145 Problem Mixed hyperlipidemia E78.2 Active 74458488 Problem Essential hypertension I10 Active 67459239 ALLERGIES No Information ENCOUNTERS Encounter Location Date Diagnosis [place] [address] 33127- [address] 08 Feb, 2018 [place] [address] 36562- 6420 13 Dec, 2017 Lateral epicondylitis, right elbow M77.11 [place] [address] 79343- 7508 11 Dec, 2017 Allergic rhinitis due to pollen, unspecified seasonality J30.1 and Allergic conjunctivitis of both eyes H10.13 [place] [address] 08513- 0660 10 Dec, 2017 Neuroforaminal stenosis of spine M99.89 [place] [address] [place] [id number] [place] [address] 75939- 1612 06 Dec, 2017 Mixed hyperlipidemia E78.2 [place] [address] [place] [id number] [place] [address] 25756- 3871 Dec, Abnormal glucose R73.09 ; Abnormal renal ultrasound R93.429 ; Dysuria R30.0 ; Cystitis without hematuria N30.90 ; Hypokalemia E87.6 ; Mixed hyperlipidemia E78.2 and Hematuria, unspecified type R31.9 [place] [address] [place] [id number] [place] [address] 20418- 3647 Nov, Hypokalemia E87.6 ; Mixed hyperlipidemia E78.2 and Hematuria , unspecified type R31.9 [place] [address] [place] [id number] [place] [address] 37824- 1849 Nov, [place] [address] 67239- 0842 Nov, Hypokalemia E87.6 [place] [address] 96429- 2660 Nov, [place] [address] [place] [id number] [place] [address] 97025- 4162 Nov, Abnormal renal ultrasound R93.429 [place] [address] 84497- 9792 Nov, Abnormal renal ultrasound R93.429 [place] [address] [place] [id number] [place] [address] 69988- 7314 Nov, Hematuria, unspecified type R31.9 and Neuroforaminal stenosis of spine M99.89 [place] [address] [place] [id number] [place] [address] 21238- 3248 Nov, Dysuria R30.0 [place] [address] 95113- 2760 Oct, Lateral epicondylitis, right elbow M77.11 [place] [address] [place] [id number] [place] [address] 56529- 0753 Oct, Neuroforaminal stenosis of spine M99.89 ; Visit for TB skin test Z11.1 and Essential hypertension I10 [place] [address] [place] [id number] [place] [address] 53615- 0688 16 Oct, 2017 [place] [address] [place] [id number] [place] [address] 14309- 3808 Oct, Neuroforaminal stenosis of spine M99.89 [place] [address] 05769- 4631 10 Oct, 2017 Visit for TB skin test Z11.1 [place] [address] [place] [id number] [place] [address] 07356- 3538 05 Oct, 2017 Cystitis without hematuria N30.90 [place] [address] [place] [id number] [place] [address] 67436- 2148 28 Sep, 2017 Screening breast examination Z12.39 [place] [address] 40004- 4001 26 Sep, 2017 Dysuria R30.0 and Cystitis without hematuria N30.90 [place] [address] [place] [id number] [place] [address] 48913- 8963 14 Sep, 2017 Essential hypertension I10 and Neuroforaminal stenosis of spine M99.89 [place] [address] [place] [id number] [place] [address] 84703- 8712 Sep, Abnormal glucose R73.09 [place] [address] 45485- 4845 August, Lateral epicondylitis, right elbow M77.11 [place] [address] [place] [id number] [place] [address] 02481- 5827 August, Screen for STD (sexually transmitted disease) Z11.3 [place] [address] [place] [id number] [place] [address] 62410- 2079 August, Neuroforaminal stenosis of spine M99.89 ; Mixed hyperlipidemia E78.2 ; Elevated fasting glucose R73.01 ; Screening mammogram, encounter for Z12.31 and Encounter for well woman exam without gynecological exam Z00.00 [facility] [address] [place] [id number] [place] [address] 43307- 4806 August, Neuroforaminal stenosis of spine M99.89 [facility] [address] [place] [id number] [place] [address] 72308- 7442 August, Essential hypertension I10 ; Hypokalemia E87.6 and Mixed hyperlipidemia E78.2 [place] [address] 79800- 2839 Jul, [place] [address] [place] [id number] [place] [address] 10916- 2884 Jul, Neuroforaminal stenosis of spine M99.89 [place] [address] [place] [id number] [place] [address] 25102- 9776 Jul, Lateral epicondylitis, right elbow M77.11 [place] [address] 52800- 6672 Jul, [place] [address] [place] [id number] [place] [address] 57726- 9860 Jun, High ankle sprain of right lower extremity, initial encounter S93.431A [place] [address] [place] [id number] [place] [address] 47416- 0206 Jun, Essential hypertension I10 [place] [address] [place] [id number] [place] [address] 09677- 3878 Jun, [facility] [address] [place] [id number] [place] [address] 79915- 6089 Jun, [place] [address] [place] [id number] [place] [address] 93712- 2033 Jun, Neuroforaminal stenosis of spine M99.89 [facility] [address] [place] [id number] [place] [address] 98041- 9582 Jun, Pain of right upper extremity M79.601 and Essential hypertension I10 [place] [address] [place] [id number] [place] [address] 15433- 6691 Jun, [place] [address] [place] [id number] [place] [address] 54813- 0864 Jun, Dysuria R30.0 ; Acute cystitis with hematuria N30.01 and Screen for STD (sexually transmitted disease) Z11.3 [place] [address] [place] [id number] [place] [address] 86986- 6650 May, 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 [place] [address] [place] [id number] [place] [address] 53648- 6776 May, Essential hypertension I10 [place] [id number] [place] [address] 56781- 7828 May, Neuroforaminal stenosis of spine M99.89 [place] [id number] [place] [address] 74073- 2044 Apr, Allergic reaction, initial encounter T78.40XA [place] [address] [place] [id number] [place] [address] 43912- 0292 Apr, Low back pain, unspecified back pain laterality, unspecified chronicity, with sciatica presence unspecified M54.5 ; Acute cystitis with hematuria N30.01 ; Neuroforaminal stenosis of spine M99.89 ; Bilateral acute serous otitis media, recurrence not specified H65.03 ; Mixed hyperlipidemia E78.2 ; Essential hypertension I10 ; Immunization counseling Z71.89 and Encounter for immunization Z23 [place] [address] [place] [id number] [place] [address] 89676- 5753 Apr, Neck pain M54.2 [place] [id number] [place] [address] 23460- 6221 Mar, Neuroforaminal stenosis of spine M99.89 [place] [address] [place] [id number] [place] [address] 37725- 6441 Mar, Pharyngitis due to other organism J02.8 [place] [address] [place] [id number] [place] [address] 28817- 1642 Feb, Neuroforaminal stenosis of spine M99.89 [facility] [address] [place] [id number] [place] [address] 47076- 4628 Feb, UTI (urinary tract infection) N39.0 [facility] [address] [place] [id number] [place] [address] 06194- 2621 Feb, Recent urinary tract infection Z87.440 ; Neuroforaminal stenosis of spine M99.89 ; Neck pain M54.2 ; 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 and Recurrent UTI N39.0 [facility] [address] 72313- 0471 Feb, [facility] [address] [place] [id number] [place] [address] 96517- 6727 Jan, Neuroforaminal stenosis of spine M99.89 [facility] [address] 85355- 2820 Dec, Neuroforaminal stenosis of spine M99.89 [facility] [address] [place] [id number] [place] [address] 32480- 7905 Dec, Acute seasonal allergic rhinitis due to pollen J30.1 [place] [address] [place] [id number] [place] [address] 14202- 1695 Dec, [facility] [address] 40910- 8445 Dec, Acute seasonal allergic rhinitis, unspecified trigger J30.2 ; Allergic conjunctivitis of both eyes H10.13 and Dysfunction of both eustachian tubes H69.83 [facility] [address] [place] [id number] [place] [address] 74142- 1348 Dec, [facility] [address] [place] [id number] [place] [address] 57379- 6357 06 Dec, 2016 Nevus D22.9 [facility] [address] 46704- 5980 Nov, 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 and Neuroforaminal stenosis of spine M99.89 [facility] [address] [place] [id number] [place] [address] 05242- 7862 Nov, Neuroforaminal stenosis of spine M99.89 ; Essential hypertension I10 ; Mixed hyperlipidemia E78.2 ; Hypokalemia E87.6 ; Neck pain M54.2 and Nevus D22.9 [facility] [address] [place] [id number] [place] [address] 92030- 6118 Oct, Neuroforaminal stenosis of spine M99.89 [facility] [address] [place] [id number] [place] [address] 57853- 4510 Sep, Neuroforaminal stenosis of spine M99.89 [facility] [address] [place] [id number] [place] [address] 57436- 5242 Sep, [facility] [address] [place] [id number] [place] [address] 47676- 0177 August, [facility] [address] [place] [id number] [place] [address] 27895- 3136 August, Neck pain M54.2 and Neuroforaminal stenosis of spine M99.89 [facility] [address] [place] [id number] [place] [address] 29510- 1926 August, Routine gynecological examination Z01.419 and Screening breast examination Z12.39 [facility] [id number] [place] [address] 94302- 6080 Jul, [facility] [address] [place] [id number] [place] [address] 27813- 1140 Jul, [facility] [address] [place] [id number] [place] [address] 04512- 4060 Jul, Neuroforaminal stenosis of spine M99.89 [facility] [address] [place] [id number] [place] [address] 37693- 5611 Jul, [place] [id number] [place] [address] 32938- 8731 Jul, 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 [place] [address] [place] [id number] [place] [address] 39711- 9822 Jul, [place] [address] [place] [id number] [place] [address] 44699- 7449 Jul, [place] [address] [place] [id number] [place] [address] 67195- 8764 Jun, Neuroforaminal stenosis of spine M99.89 [place] [address] [place] [id number] [place] [address] 38846- 1940 Jun, Uterine leiomyoma, unspecified location D25.9 and Allergic reaction caused by a drug, initial encounter T78.40XA [place] [address] [place] [id number] [place] [address] 61138- 6476 Jun, [place] [address] [place] [id number] [place] [address] 89040- 6137 May, UTI symptoms R39.9 and Pain of right sacroiliac joint M53.3 [place] [address] [place] [id number] [place] [address] 43239- 2589 May, Neuroforaminal stenosis of spine M99.89 [place] [address] [place] [id number] [place] [address] 98676- 7579 May, [place] [address] [place] [id number] [place] [address] 61052- 5550 May, Acute mucoid otitis media of left ear H65.112 and Acute non- recurrent maxillary sinusitis J01.00 [place] [address] [place] [id number] [place] [address] 68046- 7661 May, Acute bacterial conjunctivitis of both eyes H10.33 ; Left arm pain M79.602 and Hypokalemia E87.6 [place] [address] [place] [address] [place] [address]- 9328 Apr, [place] [address] [place] [id number] [place] [address] 60090- 2028 Apr, Neuroforaminal stenosis of spine M99.89 ; Neck pain M54.2 ; 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 ; Mixed hyperlipidemia E78.2 ; Essential hypertension I10 and Hypokalemia E87.6 [place] [address] 67407- 1006 Mar, Oral candidiasis B37.0 ; Neuroforaminal stenosis of spine M99.89 ; Neck pain M54.2 and 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 [place] [address] [place] [id number] [place] [address] 17972- 8105 Feb, [place] [address] [place] [id number] [place] [address] 38880- 4960 Feb, [place] [address] [place] [id number] [place] [address] 06188- 3811 Feb, UTI (urinary tract infection) N39.0 [place] [address] [place] [id number] [place] [address] 14500- 0860 Feb, Dysuria R30.0 [place] [address] [place] [id number] [place] [address] 57753- 5163 Feb, Dysuria R30.0 [place] [address] [place] [id number] [place] [address] 07546- 9065 Feb, Neuroforaminal stenosis of spine M99.89 ; Neck pain M54.2 ; Essential hypertension I10 ; 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 ; Dysuria R30.0 ; Abnormal MRI, shoulder R93.8 and Acute cystitis without hematuria N30.00 [facility] [address] [place] [address] 03104- 9516 Jan, [facility] [address] [place] [id number] [place] [address] 52307- 3938 Jan, [facility] [address] [address]- 0180 Jan, [facility] [address] [place] [id number] [place] [address] 97465- 6571 Jan, Abnormal MRI R93.8 [facility] [address] [place] [id number] [place] [address] 31315- 5323 29 Dec, 2015 [facility] [address] [place] [id number] [place] [address] 41786 -8921 15 Dec, 2015 Acute pain of left shoulder M25.512 [facility] [address] [place] [id number] [place] [address] 08944- 5997 09 Dec, 2015 [facility] [address] [place] [id number] [place] [address] 82347- 0210 08 Dec, 2015 [facility] [address] [place] [id number] [place] [address] 04336- 3499 07 Dec, 2015 Acute pain of left shoulder M25.512 [facility] [address] [place] [id number] [place] [address] 42059- 5331 Nov, [facility] [address] [place] [id number] [place] [address] 80940- 0874 16 Nov, 2015 Neuroforaminal stenosis of spine M99.89 ; Neck pain M54.2 ; Abnormal mammogram R92.8 ; Essential hypertension I10 and 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 [facility] [address] [place] [id number] [place] [address] 85172- 5164 Nov, [facility] [address] [place] [id number] [place] [address] 43682- 9898 Oct, Acute stress disorder F43.0 [facility] [address] [place] [id number] [place] [address] 01791- 9265 Oct, [facility] [address] [place] [id number] [place] [address] 73455- 7505 Oct, [facility] [address] [address]- 6469 Oct, [facility] [address] [place] [id number] [place] [address] 53289- 9638 Sep, [facility] [address] [place] [address] 76107- 5405 August, [facility] [address] [place] [id number] [place] [address] 77766- 6406 Jul, Neuroforaminal stenosis of spine M99.89 ; Neck pain M54.2 ; Abnormal mammogram R92.8 and Essential hypertension I10 [facility] [address] [place] [id number] [place] [address] 91371- 1538 Jul, [facility] [address] [place] [id number] [place] [address] 18441- 8302 Jul, [facility] [address] [place] [id number] [place] [address] 83072- 4314 Jul, Abnormal mammogram R92.8 [facility] [address] [place] [address] 97111- 7301 Jul, [facility] [address] [place] [id number] [place] [address] 77546- 8292 Jul, UTI (urinary tract infection) N39.0 [facility] [id number] [place] [address] 91193- 9275 Jul, Dysuria R30.0 [facility] [id number] [place] [address] 80837- 8554 Jun, [facility] [address] [place] [id number] [place] [address] 86857- 1629 Jun, [facility] [address] [place] [id number] [place] [address] 26000- 7686 Jun, Hypokalemia E87.6 and Hematuria R31.9 [facility] [address] [place] [id number] [place] [address] 09013- 7843 Jun, Hypokalemia E87.6 [place] [address] [place] [id number] [place] [address] 38418- 6329 Jun, [place] [address] [place] [id number] [place] [address] 15382- 6646 Jun, Hypokalemia E87.6 [place] [address] [place] [id number] [place] [address] 43159- 0017 Jun, Hypokalemia E87.6 [place] [address] [place] [id number] [place] [address] 79242- 4507 15 Jun, 2015 Neuroforaminal stenosis of spine M99.89 ; Hypokalemia E87.6 ; Neck pain M54.2 ; Essential hypertension I10 ; Mixed hyperlipidemia E78.2 and Screening breast examination Z12.39 [place] [address] [place] [id number] [place] [address] 98050- 2368 Jun, Dysuria R30.0 ; UTI (urinary tract infection) N39.0 and Hematuria R31.9 [place] [address] [place] [id number] [place] [address] 18169- 6051 May, [place] [address] [place] [id number] [place] [address] 77243- 3798 May, High risk sexual behavior Z72.51 ; Hypokalemia E87.6 ; Neuroforaminal stenosis of spine M99.89 ; Neck pain M54.2 ; Essential hypertension I10 ; Mixed hyperlipidemia E78.2 ; STD exposure Z20.2 and Concern about STD in female without diagnosis Z71.1 [place] [address] [place] [id number] [place] [address] 27441- 8785 16 May, 2015 Neuroforaminal stenosis of spine M99.89 ; Neck pain M54.2 ; Hypokalemia E87.6 ; Essential hypertension I10 and Mixed hyperlipidemia E78.2 [place] [address] [place] [id number] [place] [address] 17119- 0464 May, [facility] [id number] [place] [address] 26788 -3299 08 May, 2015 High risk sexual behavior Z72.51 ; STD exposure Z20.2 and Concern about STD in female without diagnosis Z71.1 [facility] [id number] [place] [address] 60831- 2980 05 May, 2015 [facility] [address] 41633- 2664 Apr, Neuroforaminal stenosis of spine M99.89 ; Mixed hyperlipidemia E78.2 ; Essential hypertension I10 and Hypokalemia E87.6 [place] [address] [place] [id number] [place] [address] 53090- 2411 Mar, [facility] [address] [place] [id number] [place] [address] 97348- 9306 Mar, Hypokalemia E87.6 [place] [address] [place] [id number] [place] [address] 01106- 9539 Mar, Neuroforaminal stenosis of spine M99.89 ; Mixed hyperlipidemia E78.2 ; Neck pain M54.2 ; Essential hypertension I10 ; Abnormal fasting glucose R73.09 ; Hypokalemia E87.6 and Constipation K59.00 [place] [address] [place] [id number] [place] [address] 68626- 2916 Feb, Neuroforaminal stenosis of spine M99.89 ; Mixed hyperlipidemia E78.2 ; Neck pain M54.2 ; Essential hypertension I10 ; Abnormal fasting glucose R73.09 ; Hypokalemia E87.6 and Constipation K59.00 [place] [address] [place] [id number] [place] [address] 78584- 5636 Feb, Elevated fasting blood sugar R73.01 [place] [id number] [place] [address] 22533- 3088 Feb, Elevated fasting blood sugar R73.01 [place] [address] [place] [id number] [place] [address] 28378- 9733 Feb, Hair loss L65.9 [place] [address] [place] [id number] [place] [address] 04887- 1841 Feb, Sinusitis J32.9 ; Essential hypertension I10 and Hair loss L65.9 [place] [address] [place] [id number] [place] [address] 13411- 3979 Jan, [place] [address] 54905- 9070 Jan, Essential hypertension I10 ; Neuroforaminal stenosis of spine M99.89 ; Neck pain M54.2 ; Mixed hyperlipidemia E78.2 and Anxiety F41.9 [place] [address] [place] [id number] [place] [address] 55427- 5570 Jan, [place] [address] 35330- 1168 Jan, Mixed hyperlipidemia E78.2 ; Essential (primary) hypertension I10 ; Strain of muscle, fascia and tendon at neck level, subsequent encounter S16.1XXD and Tension-type headache, unspecified, not intractable G44.209 [place] [address] [place] [id number] [place] [address] 82291- 1581 Dec, Lumbar back pain 724.2 and Neuroforaminal stenosis of spine 724.00 [place] [address] [place] [id number] [place] [address] 49434- 9474 Nov, [place] [address] [address]- [address] Nov, Lumbar back pain 724.2 and Neuroforaminal stenosis of spine 724.00 [place] [address] [address]- [address]40 Nov, Edema 782.3 ; Lumbar back pain 724.2 ; Essential hypertension, benign 401.1 ; Hyperlipemia 272.4 ; Neuroforaminal stenosis of spine 724.00 and Post-concussion headache 339.20 [place] [address] [address] Nov, [facility] [id number] [place] [address] 11366- 6906 Nov, [facility] [id number] [place] [address] 90485- 8228 Oct, Essential hypertension, benign 401.1 [facility] [address] [id number] [place] [address] 95135- 8600 Oct, Edema 782.3 ; Lumbar back pain 724.2 ; Essential hypertension, benign 401.1 ; Hyperlipemia 272.4 ; Neuroforaminal stenosis of spine 724.00 and Post-concussion headache 339.20 [facility] [id number] [place] [address] 27193- 9411 Oct, [facility] [address] [id number] [place] [address] 06942- 3211 Oct, Edema 782.3 [facility] [address] [id number] [place] [address] 43239- 4024 Oct, Lumbar back pain 724.2 [facility] [id number] [place] [address] 16185- 7044 Oct, Cervicalgia 723.1 ; Lumbar back pain 724.2 and High risk medication use V58.69 [facility] [id number] [place] [address] 54165- 8648 Sep, [facility] [id number] [place] [address] 35128- 7196 Sep, Lumbar strain 847.2 [facility] [id number] [place] [address] 02329- 7718 August, Edema 782.3 and Eustachian tube dysfunction 381.81 [facility] [address], [place] [address] August, [facility] [id number], [place] [address] August, Eustachian tube dysfunction 381.81 [facility] [facility] [id number] [place] [address], [place] [address] Jul, Otalgia 388.70 and Otitis media 382.9 [facility] [id number] [place] [address] Jul, [facility] [id number] [place] [address] 2930 Jul, [facility] [id number] [place] [address], [place] [address] 7840 Jul, [facility] [address] [id number] [address] Jul, [facility] [id number] [place] [address]- 9675 Jul, [facility] [id number], [place] [address] 1085 Jun, [facility] [id number], [place] [address]- 0426 Jun, [facility] [address]005[address], [place] [address]- 7335 Jun, [facility] [id number], [place] [address]- 7478 May, [facility] [id number], [place] [address] 4736 May, [facility] [address] [address] May, [facility] [id number] 78[address] May, [facility] [id number] [address] May, [facility] [place] [facility] [address] [id number] [place] [address]- 3113 May, [facility] [place] [facility] [address] [id number] [place] [address]- 6027 May, [facility] [place] [facility] [address] [id number] [place] [address]- 1087 May, [facility] [place] [facility] [address] [id number] [place] [address]- 8562 May, [facility] [place] [facility] [address] [id number] [place] [address]- 8231 May, [facility] [place] [facility] [address] [id number] [place] [address]- 8737 Apr, [facility] [place] [facility] [address] [id number] [place] [address]- 4981 Apr, [facility] [place] [facility] [address] [id number] [place] [address]- 5237 Apr, [facility] [place] [facility] [address] [id number] [place] [address]- 0397 Apr, [facility] [place] [facility] [address] [id number] [place] [address]- 3289 Apr, [facility] [place] [facility] [address] [id number] [place] [address]- 9502 Apr, [facility] [place] [facility] [address] [id number] [place] [address]- 8781 Apr, [facility] [place] [facility] [address] [id number] [place] [address]- 9346 Apr, [facility] [place] [facility] [address] [id number] [place] [address]- 7024 Apr, [facility] [place] [facility] [address] [id number] [place] [address]- 0391 Apr, [facility] [place] [facility] [address] [id number], [place] [address]- 5212 Apr, [facility] [place] [facility] [address] [id number] [place] [address]- 4317 Apr, [facility] [place] [facility] [address] [id number] [place] [address]- 3876 Apr, [facility] [place] [facility] [address] [facility] [id number] [place] [address]- 9304 Apr, [facility] [place] [facility] [address] [id number] [place] [address]- 6529 Apr, [facility] [place] [facility] [address] [facility] [id number] [place] [address]- 2891 Mar, [facility] [place] [facility] [address] [facility] [id number] [place] [address]- 1381 Mar, [facility] [place] [facility] [address] [facility] [id number], [place] [address]- 5263 Mar, [facility] [place] [facility] [address] [facility] [id number] [place] [address]- 5323 Mar, [facility] [place] [facility] [address] [facility] [id number] [place] [address]- 7518 Feb, [facility] [place] [facility] [address] [facility] [id number], [place] [address]- 8313 Feb, [facility] [place] [facility] [address] [facility] [id number], [place] [address]- 6964 Feb, [facility] [place] [facility] [address] [facility] [id number], [place] [address]- 8839 Feb, [facility] [place] [facility] [address] [id number], [place] [address]- 4522 Jan, [facility] [place] [facility] [address] [facility] [id number], [place] [address]- 9518 Jan, [facility] [place] [facility] [address] [facility] [id number], [place] [address]- 8894 Jan, [facility] [place] [facility] [address] [id number] [place] [address]- 7402 Jan, [facility] [place] [facility] [address] [id number] [place] [address]- 0913 Jan, [facility] [place] [facility] [address] [id number] [place] [address]- 2092 Jan, [facility] [place] [facility] [address] [id number] [place] [address]- 7227 Jan, [facility] [place] [facility] [address] [id number] [place] [address]- 4745 Jan, [facility] [place] [facility] [address] [id number] [place] [address]- 6154 Dec, [facility] [place] [facility] [address] [id number] [place] [address]- 5752 Dec, [facility] [place] [facility] [address] [id number] [place] [address]- 1829 Dec, [facility] [place] [facility] [address] [id number] [place] [address]- 7612 Dec, [facility] [place] [facility] [address] [id number] [place] [address]- 6559 Oct, [facility] [place] [facility] [address] [id number] [place] [address]- 6653 Oct, [facility] [place] [facility] [address] [id number] [place] [address]- 8407 Oct, [facility] [place] [facility] [address] [id number] [place] [address]- 4112 Oct, [facility] [place] [facility] [address] [id number] [place] [address]- 4895 Oct, [facility] [place] [facility] [address] [id number] [place] [address]- 7452 Oct, [facility] [place] [facility] [address] [id number] [place] [address]- 7390 Oct, [facility] [place] [facility] [address] [id number] [place] [address]- 1762 Oct, [facility] [place] [facility] [address] [id number] [place] [address]- 2277 Sep, [facility] [place] [facility] [address] [id number] [place] [address]- 1597 Sep, [facility] [place] [facility] [address] [id number] [place] [address]- 1010 Sep, [facility] [place] [facility] [address] [id number] [place] [address]- 4305 Sep, [facility] [place] [facility] [address] [id number] [place] [address]- 5310 Sep, [facility] [place] [facility] [address] [id number] [place] [address]- 6856 Sep, [facility] [place] [facility] [address] [id number] [place] [address]- 8552 Sep, [facility] [place] [facility] [address] [id number] [place] [address]- 8878 Sep, [facility] [place] [facility] [address] [id number] [place] [address]- 4915 Sep, [facility] [place] [facility] [address] [id number] [place] [address]- 9521 Sep, [facility] [place] [facility] [address] [id number], [place] [address]- 9048 August, [facility] [place] [facility] [address] [id number] [place] [address]- 7180 August, [facility] [place] [facility] [address] [id number] [place] [address]- 0732 August, [facility] [place] [facility] [address] [id number] [place] [address]- 3420 August, [facility] [place] [facility] [address] [id number] [place] [address]- 1353 August, [facility] [place] [facility] [address] [id number] [place] [address]- 6587 August, [facility] [place] [facility] [address] [id number] [place] [address]- 9017 August, [facility] [place] [facility] [address] [id number] [place] [address]- 2283 August, [facility] [place] [facility] [address] [id number] [place] [address]- 7583 August, [facility] [place] [facility] [address] [id number] [place] [address]- 0321 August, [facility] [place] [facility] [address] [id number] [place] [address]- 2605 August, [facility] [place] [facility] [address] [id number] [place] [address]- 7077 August, [facility] [place] [facility] [address] [id number] [place] [address]- 4768 Jul, [facility] [place] [facility] [address] [id number] [place] [address]- 1441 Jul, [facility] [place] [facility] [address] [id number] [place] [address]- 0844 Jul, [facility] [place] [facility] [address] [id number] [place] [address]- 0573 Jul, [facility] [place] [facility] [address] [id number] [place] [address]- 6712 Jul, [facility] [place] [facility] [address] [id number] [place] [address]- 2158 Jul, [facility] [place] [facility] [address] [id number] [place] [address]- 4455 Jun, [facility] [place] [facility] [address] [id number] [place] [address]- 1931 Jun, [facility] [place] [facility] [address] [id number] [place] [address]- 6260 May, [facility] [place] [facility] [address] [id number] [place] [address]- 0984 May, [facility] [place] [facility] [address] [id number] [place] [address]- 5814 Apr, [facility] [place] [facility] [address] [id number] [place] [address]- 1953 Apr, [facility] [place] [facility] [address] [id number] [place] [address]- 3634 Apr, [facility] [place] [facility] [address] [id number] [place] [address]- 5651 Apr, [facility] [place] [facility] [address] [id number] [place] [address]- 5829 Apr, [facility] [place] [facility] [address] [id number] [place] [address]- 8157 Apr, [facility] [place] [facility] [address] [id number] [place] [address]- 2548 Apr, [facility] [place] [facility] [address] [id number] [place] [address]- 6909 Apr, [facility] [place] [facility] [address] [id number] [place] [address]- 1331 Apr, [facility] [place] [facility] [address] [id number], [place] [address]- 2212 Apr, [facility] [place] [facility] [address] [id number] [place] [address]- 9922 Apr, [facility] [place] [facility] [address] [id number] [place] [address]- 4025 Apr, [facility] [place] [facility] [address] [id number] [place] [address]- 0040 Apr, [facility] [place] [facility] [address] [id number], [place] [address]- 1013 Mar, [facility] [place] [facility] [address] [id number] [place] [address]- 5650 Mar, [facility] [place] [facility] [address] [id number], [place] [address]- 6049 Mar, [facility] [place] [facility] [address] [id number] [place] [address]- 1154 Mar, [facility] [place] [facility] [address] [id number] [place] [address]- 4265 Feb, [facility] [place] [facility] [address] [id number] [place] [address]- 0932 Feb, [facility] [place] [facility] [address] [id number] [place] [address]- 2654 Feb, [facility] [place] [facility] [address] [id number], [place] [address]- 3209 Feb, [facility] [place] [facility] [address] [id number], [place] [address]- 3204 Jan, [facility] [place] [facility] [address] [id number], [place] [address]- 8855 14 Jan, 2013 [facility] [place] [facility] [address] [id number], [place] [address]- 1047 Jan, [facility] [place] [facility] [address] [id number], [place] [address]- 2772 Jan, [facility] [place] [facility] [address] [id number], [place] [address]- 5684 Jan, [facility] [place] [facility] [address] [id number], [place] [address]- 2352 Jan, [facility] [place] [facility] [address] [id number], [place] [address]- 1098 Jan, [facility] [place] [facility] [address] [id number], [place] [address]- 4405 Jan, [facility] [place] [facility] [address] [id number] [place] [address]- 0810 Jan, [facility] [address] [id number] [place] [address]- 1054 26 Dec, 2012 [facility] [place] [facility] [address] [id number] [place] [address]- 5086 16 Dec, 2012 [facility] [address] [id number] [place] [address]- 7916 16 Dec, 2012 [facility] [address] [id number] [place] [address]- 2933 13 Dec, 2012 [facility] [address] [id number] [place] [address]- 0370 Nov, [facility] [address] [id number] [place] [address]- 5137 Nov, [facility] [address] [id number] [place] [address]- 2926 Nov, [facility] [address] [id number] [place] [address]- 0957 Nov, [facility] [address] [id number] [place] [address]- 8792 Oct, [facility] [address] [id number] [place] [address]- 7666 Sep, [facility] [address] [id number] [place] [address]- 7138 August, [facility] [address] [id number] [place] [address]- 6502 August, [facility] [place] [facility] [address] [id number] [place] [address]- 2821 August, [facility] [place] [facility] [address] [id number] [place] [address]- 6816 August, [facility] [place] [facility] [address] [id number] [place] [address]- 4463 August, [facility] [address] [id number] [place] [address]- 3524 August, [facility] [address] [id number] [place] [address]- 4705 August, [facility] [address] [id number] [place] [address]- 8153 August, [facility] [address] [id number] [place] [address]- 3630 August, [facility] [address] [id number] [place] [address]- 6358 August, [facility] [address] [id number] [place] [address]- 6508 August, [facility] [address] [id number] [place] [address]- 7361 August, [facility] [address] [id number] [place] [address]- 5508 Jul, [facility] [address] [id number] [place] [address]- 4956 Jul, [facility] [address] [id number] [place] [address]- 1508 Jul, [facility] [address] [id number] [place] [address]- 3102 Jul, [facility] [place] [facility] [address] [id number], [place] [address]- 5843 Jul, [facility] [place] [facility] [address] [id number] [place] [address]- 5328 Jul, [facility] [place] [facility] [address] [id number] [place] [address]- 2857 Jul, [facility] [place] [facility] [address] [id number] [place] [address]- 3237 Jul, [facility] [place] [facility] [address] [id number] [place] [address] 2546 Jul, [facility] [address] [id number] [place] [address]- 2646 Jul, [facility] [place] [facility] [address] [facility] [id number] [place] [address]- 0616 Jul, [facility] [address] [facility] [id number] [place] [address]- 3486 Jun, [facility] [place] [facility] [address] [id number] [place] [address]- 5543 Jun, [facility] [address] [id number] [place] [address]- 4662 Jun, [facility] [place] [facility] [address] [facility] [id number] [place] [address]- 2546 Jun, [facility] [address] [id number] [place] [address]- 5240 May, [facility] [place] [facility] [address] [id number] [place] [address]- 9764 14 May, 2012 [facility] [place] [facility] [id number] [place] [address]- 7126 05 May, 2012 [facility] [address] [facility] [id number] [place] [address]- 6676 May, [facility] [place] [facility] [id number] [place] [address]- 2546 May, [facility] [place] [facility] [address] [facility] [id number] [place] [address]- 2546 May, [facility] [place] [facility] [address] [id number] [place] [address]- 2546 Apr, [facility] [place] [facility] [address] [facility] [id number] [place] [address]- 2546 Apr, [facility] [place] [facility] [address] [facility] [id number] [place] [address]- 4521 Apr, [facility] [place] [facility] [address] [id number] [place] [address]- 3375 Apr, [facility] [place] [facility] [address] [id number] [place] [address]- 6736 Mar, [facility] [place] [facility] [address] [id number] [place] 0610 Mar, [facility] [place] [facility] [address] [id number] [place] [address]- 2948 Mar, [facility] [place] [facility] [address] [id number] [place] [address]- 0691 Mar, [facility] [place] [facility] [address] [id number] [place] [address]- 9628 Mar, [facility] [place] [facility] [address] [id number] [place] [address]- 1183 Mar, [facility] [place] [facility] [address] [id number] [place] [address]- 1508 Mar, [facility] [place] [facility] [address] [id number] [place] [address]- 2454 Feb, [facility] [place] [facility] [address] [id number], [place] [address]- 7359 Feb, [facility] [place] [facility] [address] [id number], [place] [address]- 5461 Feb, [facility] [place] [facility] [address] [id number], [place] [address]- 8580 Feb, [facility] [place] [facility] [address] [id number] [place] [address]- 3106 Jan, [facility] [place] [facility] [address] [id number], [place] [address]- 9712 Jan, [facility] [place] [facility] [address] [id number], [place] [address]- 6944 Jan, [facility] [place] [facility] [address] [id number], [place] [address]- 7746 Jan, [facility] [address] [id number] [place] [address]- 3803 Jan, [facility] [place] [facility] [address] [id number] [place] [address]- 3888 Jan, [facility] [place] [facility] [address] [id number] [place] [address] Dec, [facility] [place] [facility] [address] [id number] [place] [address] Dec, [facility] [place] [facility] [address] [id number] [place] [address] Nov, [facility] [place] [facility] [address] [id number] [place] [address] Sep, [facility] [id number] [place] [address] August, [facility] [place] [facility] [address] [id number] [place] [address] August, [facility] [address] [id number] [place] [address] August, [facility] [place] [facility] [address] [id number] [place] [address] August, [facility] [place] [facility] [address] [id number] [place] [address] August, [facility] [place] [facility] [address] [id number], [place] [address] Jun, [facility] [place] [facility] [address] [id number] [place] [address] Jun, [facility] [place] [facility] [address] [facility] [id number] [place] [address] Apr, [facility] [place] [facility] [address] [id number] [place] [address] Apr, [facility] [place] [facility] [address] [id number] [place] [address] 23 Mar, 2011 [facility] [place] [facility] [address] [id number] [place] [address] Feb, [facility] [place] [facility] [address] [id number] [place] [address] 14 Feb, 2011 [facility] [place] [facility] [address] [id number] [place] [address] 14 Feb, 2011 [facility] [place] [facility] [address] [id number] [place] [address] 17 Jan, 2011 [facility] [place] [facility] [address] [id number] [place] [address] 15 Jan, 2011 [facility] [place] [facility] [address] [id number] [place] [address] 15 Jan, 2011 [facility] [place] [facility] [address] [id number] [place] [address] 14 Jan, 2011 [facility] [place] [facility] [address] [id number] [place] [address] 15 May, 2010 [facility] [place] [facility] [address] [id number] [place] [address] Mar, [facility] [place] [facility] [address] [id number] [place] [address] Oct, [facility] [place] [facility] [address] [id number] [place] [address] Sep, [facility] [place] [facility] [address] [id number] [place] [address] Mar, [facility] [place] [facility] [address] [id number] [place] [address] Jan, [facility] [place] [facility] [address] [id number] [place] [address] Jan, [facility] [place] [facility] [address] [id number] [place] [address] May, IMMUNIZATIONS No Known Immunizations SOCIAL HISTORY Never Assessed REASON FOR VISIT Test results PLAN OF CARE VITAL SIGNS MEDICATIONS Unknown Medications RESULTS Name Result Date Reference Range CT Scan : Kidneys 2017-11-28 PROCEDURES No Known procedures INSTRUCTIONS MEDICATIONS ADMINISTERED No Known Medications MEDICAL (GENERAL) HISTORY Type Description Date Medical History hypertension Medical History Colposcopy with loop electrode excision of the cervix was performed 06/2012, mild squamous atypia (no definite dyplasia). Performed at [facility] Dr. Joy. Medical History Acute [...]
--- OUTSIDE RECORDS SUMMARY | 2018-06-10 04:47 | XMS REPORT ---
Author Author BETI STAUFFER [facility] Address [address] [place] [address] Care Team Providers Care Range Mounter Name Role Phone BETI STAUFFER Unavailable PROBLEMS Type Condition ICD9-CM Code PSY11-OD Code Onset Dates Condition Status SNOMED Code Problem Hematuria, unspecified type R31.9 Active 23920261 Problem Anxiety F41.9 Active 99554764 Problem Abnormal renal ultrasound R93.429 Active [id number] Problem Abnormal glucose R73.09 Active 201125314 Problem 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 Active 905504113 Problem Hypokalemia E87.6 Active 89452712 Problem Neck pain M54.2 Active 72312998 Problem Neuroforaminal stenosis of spine M99.89 Active 512650283289 Problem Mixed hyperlipidemia E78.2 Active 67058568 Problem Essential hypertension I10 Active 43519674 ALLERGIES No Information ENCOUNTERS Encounter Location Date Diagnosis [place] [address] 349[address]- [address]1 08 Feb, 2018 [place] [address] 84274- 0709 13 Dec, 2017 Lateral epicondylitis, right elbow M77.11 [place] [address] 71341- 4485 11 Dec, 2017 Allergic rhinitis due to pollen, unspecified seasonality J30.1 and Allergic conjunctivitis of both eyes H10.13 [place] [address] 71765- 1121 10 Dec, 2017 Neuroforaminal stenosis of spine M99.89 [place] [address] [place] [id number] [place] [address] 97363- 7013 06 Dec, 2017 Mixed hyperlipidemia E78.2 [place] [address] [place] [id number] [place] [address] 70100- 0242 Dec, Abnormal glucose R73.09 ; Abnormal renal ultrasound R93.429 ; Dysuria R30.0 ; Cystitis without hematuria N30.90 ; Hypokalemia E87.6 ; Mixed hyperlipidemia E78.2 and Hematuria, unspecified type R31.9 [place] [address] [place] [id number] [place] [address] 71150- 5721 Nov, Hypokalemia E87.6 ; Mixed hyperlipidemia E78.2 and Hematuria , unspecified type R31.9 [place] [address] [place] [id number] [place] [address] 67542- 1230 Nov, [place] [address] 23985- 4300 Nov, Hypokalemia E87.6 [place] [address] 67383- 1781 Nov, [place] [address] [place] [id number] [place] [address] 64295- 6320 Nov, Abnormal renal ultrasound R93.429 [place] [address] 91532- 7560 Nov, Abnormal renal ultrasound R93.429 [place] [address] [place] [id number] [place] [address] 00309- 2694 Nov, Hematuria, unspecified type R31.9 and Neuroforaminal stenosis of spine M99.89 [place] [address] [place] [id number] [place] [address] 68607- 1421 Nov, Dysuria R30.0 [place] [address] 90581- 4400 Oct, Lateral epicondylitis, right elbow M77.11 [place] [address] [place] [id number] [place] [address] 14502- 7960 Oct, Neuroforaminal stenosis of spine M99.89 ; Visit for TB skin test Z11.1 and Essential hypertension I10 [place] [address] [place] [id number] [place] [address] 38531- 0993 16 Oct, 2017 [place] [address] [place] [id number] [place] [address] 15207- 3537 Oct, Neuroforaminal stenosis of spine M99.89 [place] [address] 38086- 9089 10 Oct, 2017 Visit for TB skin test Z11.1 [place] [address] [place] [id number] [place] [address] 53244- 7614 05 Oct, 2017 Cystitis without hematuria N30.90 [place] [address] [place] [id number] [place] [address] 83495- 4006 28 Sep, 2017 Screening breast examination Z12.39 [place] [address] 52386- 2016 26 Sep, 2017 Dysuria R30.0 and Cystitis without hematuria N30.90 [place] [address] [place] [id number] [place] [address] 92832- 3627 14 Sep, 2017 Essential hypertension I10 and Neuroforaminal stenosis of spine M99.89 [place] [address] [place] [id number] [place] [address] 32956- 3530 Sep, Abnormal glucose R73.09 [place] [address] 52335- 0165 August, Lateral epicondylitis, right elbow M77.11 [place] [address] [place] [id number] [place] [address] 71092- 4626 August, Screen for STD (sexually transmitted disease) Z11.3 [place] [address] [place] [id number] [place] [address] 03625- 7797 August, Neuroforaminal stenosis of spine M99.89 ; Mixed hyperlipidemia E78.2 ; Elevated fasting glucose R73.01 ; Screening mammogram, encounter for Z12.31 and Encounter for well woman exam without gynecological exam Z00.00 [facility] [address] [place] [id number] [place] [address] 45689- 5985 August, Neuroforaminal stenosis of spine M99.89 [facility] [address] [place] [id number] [place] [address] 34224- 5889 August, Essential hypertension I10 ; Hypokalemia E87.6 and Mixed hyperlipidemia E78.2 [place] [address] 63031- 1582 Jul, [place] [address] [place] [id number] [place] [address] 40166- 3097 Jul, Neuroforaminal stenosis of spine M99.89 [place] [address] [place] [id number] [place] [address] 48584- 1737 Jul, Lateral epicondylitis, right elbow M77.11 [place] [address] 80300- 2235 Jul, [place] [address] [place] [id number] [place] [address] 79250- 3434 Jun, High ankle sprain of right lower extremity, initial encounter S93.431A [place] [address] [place] [id number] [place] [address] 88286- 8215 Jun, Essential hypertension I10 [place] [address] [place] [id number] [place] [address] 02457- 2467 Jun, [facility] [address] [place] [id number] [place] [address] 49813- 1970 Jun, [place] [address] [place] [id number] [place] [address] 24830- 2626 Jun, Neuroforaminal stenosis of spine M99.89 [facility] [address] [place] [id number] [place] [address] 40966- 0207 Jun, Pain of right upper extremity M79.601 and Essential hypertension I10 [place] [address] [place] [address] [place] [address] 36275- 4903 Jun, [place] [address] [place] [id number] [place] [address] 15489- 9798 Jun, Dysuria R30.0 ; Acute cystitis with hematuria N30.01 and Screen for STD (sexually transmitted disease) Z11.3 [place] [address] [place] [id number] [place] [address] 76895- 2796 May, 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 [place] [address] [place] [id number] [place] [address] 63282- 9236 May, Essential hypertension I10 [place] [id number] [place] [address] 58231- 2207 May, Neuroforaminal stenosis of spine M99.89 [place] [id number] [place] [address] 74911- 7499 Apr, Allergic reaction, initial encounter T78.40XA [place] [address] [place] [id number] [place] [address] 88004- 5557 Apr, Low back pain, unspecified back pain laterality, unspecified chronicity, with sciatica presence unspecified M54.5 ; Acute cystitis with hematuria N30.01 ; Neuroforaminal stenosis of spine M99.89 ; Bilateral acute serous otitis media, recurrence not specified H65.03 ; Mixed hyperlipidemia E78.2 ; Essential hypertension I10 ; Immunization counseling Z71.89 and Encounter for immunization Z23 [place] [address] [place] [id number] [place] [address] 58875- 4405 Apr, Neck pain M54.2 [place] [id number] [place] [address] 60109- 1445 Mar, Neuroforaminal stenosis of spine M99.89 [place] [address] [place] [id number] [place] [address] 68095- 3987 Mar, Pharyngitis due to other organism J02.8 [place] [address] [place] [id number] [place] [address] 80579- 3053 Feb, Neuroforaminal stenosis of spine M99.89 [facility] [address] [place] [id number] [place] [address] 06850- 6748 Feb, UTI (urinary tract infection) N39.0 [facility] [address] [place] [id number] [place] [address] 59592- 3943 Feb, Recent urinary tract infection Z87.440 ; Neuroforaminal stenosis of spine M99.89 ; Neck pain M54.2 ; 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 and Recurrent UTI N39.0 [facility] [address] 97750- 0616 Feb, [facility] [address] [place] [id number] [place] [address] 17319- 2535 Jan, Neuroforaminal stenosis of spine M99.89 [facility] [address] 77448- 6770 Dec, Neuroforaminal stenosis of spine M99.89 [facility] [address] [place] [id number] [place] [address] 80081- 2190 Dec, Acute seasonal allergic rhinitis due to pollen J30.1 [place] [address] [place] [id number] [place] [address] 13647- 9746 Dec, [facility] [address] 96516- 5070 Dec, Acute seasonal allergic rhinitis, unspecified trigger J30.2 ; Allergic conjunctivitis of both eyes H10.13 and Dysfunction of both eustachian tubes H69.83 [facility] [address] [place] [id number] [place] [address] 06105- 1363 Dec, [facility] [address] [place] [id number] [place] [address] 98999- 7005 06 Dec, 2016 Nevus D22.9 [facility] [address] 87817- 7391 Nov, 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 and Neuroforaminal stenosis of spine M99.89 [facility] [address] [place] [id number] [place] [address] 74171- 6619 Nov, Neuroforaminal stenosis of spine M99.89 ; Essential hypertension I10 ; Mixed hyperlipidemia E78.2 ; Hypokalemia E87.6 ; Neck pain M54.2 and Nevus D22.9 [facility] [address] [place] [id number] [place] [address] 74518- 2080 Oct, Neuroforaminal stenosis of spine M99.89 [facility] [address] [place] [id number] [place] [address] 37200- 9667 Sep, Neuroforaminal stenosis of spine M99.89 [facility] [address] [place] [id number] [place] [address] 36534- 9843 Sep, [facility] [address] [place] [id number] [place] [address] 97252- 9629 August, [facility] [address] [place] [id number] [place] [address] 78047- 9418 August, Neck pain M54.2 and Neuroforaminal stenosis of spine M99.89 [facility] [address] [place] [id number] [place] [address] 85893- 6921 August, Routine gynecological examination Z01.419 and Screening breast examination Z12.39 [facility] [id number] [place] [address] 44986- 4277 Jul, [facility] [address] [place] [id number] [place] [address] 31141- 5534 Jul, [facility] [address] [place] [id number] [place] [address] 74140- 7002 Jul, Neuroforaminal stenosis of spine M99.89 [facility] [address] [place] [id number] [place] [address] 68279- 2989 Jul, [place] [id number] [place] [address] 76862- 3755 Jul, 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 [place] [address] [place] [id number] [place] [address] 38652- 6506 Jul, [place] [address] [place] [id number] [place] [address] 41536- 6891 Jul, [place] [address] [place] [id number] [place] [address] 77566- 1122 Jun, Neuroforaminal stenosis of spine M99.89 [place] [address] [place] [id number] [place] [address] 60032- 6572 Jun, Uterine leiomyoma, unspecified location D25.9 and Allergic reaction caused by a drug, initial encounter T78.40XA [place] [address] [place] [id number] [place] [address] 58748- 6556 Jun, [place] [address] [place] [id number] [place] [address] 07312- 8801 May, UTI symptoms R39.9 and Pain of right sacroiliac joint M53.3 [place] [address] [place] [id number] [place] [address] 04953- 6117 May, Neuroforaminal stenosis of spine M99.89 [place] [address] [place] [id number] [place] [address] 24349- 3544 May, [place] [address] [place] [id number] [place] [address] 08840- 0995 May, Acute mucoid otitis media of left ear H65.112 and Acute non- recurrent maxillary sinusitis J01.00 [place] [address] [place] [id number] [place] [address] 55543- 2052 May, Acute bacterial conjunctivitis of both eyes H10.33 ; Left arm pain M79.602 and Hypokalemia E87.6 [place] [address] [place] [address] [place] [address]- 1155 Apr, [place] [address] [place] [id number] [place] [address] 10150- 5625 Apr, Neuroforaminal stenosis of spine M99.89 ; Neck pain M54.2 ; 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 ; Mixed hyperlipidemia E78.2 ; Essential hypertension I10 and Hypokalemia E87.6 [place] [address] 06164- 3635 Mar, Oral candidiasis B37.0 ; Neuroforaminal stenosis of spine M99.89 ; Neck pain M54.2 and 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 [place] [address] [place] [id number] [place] [address] 98040- 2914 Feb, [place] [address] [place] [id number] [place] [address] 55872- 7930 Feb, [place] [address] [place] [id number] [place] [address] 93146- 8277 Feb, UTI (urinary tract infection) N39.0 [place] [address] [place] [id number] [place] [address] 33096- 6849 Feb, Dysuria R30.0 [place] [address] [place] [id number] [place] [address] 03354- 5207 Feb, Dysuria R30.0 [place] [address] [place] [id number] [place] [address] 32565- 0556 Feb, Neuroforaminal stenosis of spine M99.89 ; Neck pain M54.2 ; Essential hypertension I10 ; 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 ; Dysuria R30.0 ; Abnormal MRI, shoulder R93.8 and Acute cystitis without hematuria N30.00 [facility] [id number] [place] [address] 80508- 2980 Jan, [facility] [address] [place] [id number] [place] [address] 71663- 6532 Jan, [facility] [address] [address]- 8369 Jan, [facility] [address] [place] [id number] [place] [address] 87633- 1621 Jan, Abnormal MRI R93.8 [facility] [address] [place] [id number] [place] [address] 97818- 9397 29 Dec, 2015 [facility] [address] [place] [id number] [place] [address] 87627 -9379 15 Dec, 2015 Acute pain of left shoulder M25.512 [facility] [address] [place] [id number] [place] [address] 93673- 1655 09 Dec, 2015 [facility] [address] [place] [id number] [place] [address] 09611- 5703 08 Dec, 2015 [facility] [address] [place] [id number] [place] [address] 32662- 0162 07 Dec, 2015 Acute pain of left shoulder M25.512 [facility] [address] [place] [id number] [place] [address] 60156- 7532 Nov, [facility] [address] [place] [id number] [place] [address] 26854- 8327 16 Nov, 2015 Neuroforaminal stenosis of spine M99.89 ; Neck pain M54.2 ; Abnormal mammogram R92.8 ; Essential hypertension I10 and 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 [facility] [address] [place] [id number] [place] [address] 65638- 6567 Nov, [facility] [address] [place] [id number] [place] [address] 83340- 6272 Oct, Acute stress disorder F43.0 [facility] [address] [place] [id number] [place] [address] 85499- 6559 Oct, [facility] [address] [place] [id number] [place] [address] 82885- 9812 Oct, [facility] [address] [address]- 1225 Oct, [facility] [address] [place] [id number] [place] [address] 18489- 2160 Sep, [facility] [id number] [place] [address] 07231- 3184 August, [facility] [address] [place] [id number] [place] [address] 36876- 7047 Jul, Neuroforaminal stenosis of spine M99.89 ; Neck pain M54.2 ; Abnormal mammogram R92.8 and Essential hypertension I10 [facility] [address] [place] [id number] [place] [address] 63250- 0311 Jul, [facility] [address] [place] [id number] [place] [address] 30332- 7540 Jul, [facility] [address] [place] [id number] [place] [address] 20087- 3541 Jul, Abnormal mammogram R92.8 [facility] [id number] [place] [address] 02250- 6837 Jul, [facility] [address] [place] [id number] [place] [address] 25891- 6301 Jul, UTI (urinary tract infection) N39.0 [facility] [id number] [place] [address] 93502- 9199 Jul, Dysuria R30.0 [facility] [id number] [place] [address] 22594- 0236 Jun, [facility] [address] [place] [id number] [place] [address] 75353- 1398 Jun, [facility] [address] [place] [id number] [place] [address] 12161- 4383 Jun, Hypokalemia E87.6 and Hematuria R31.9 [facility] [address] [place] [id number] [place] [address] 61046- 8442 Jun, Hypokalemia E87.6 [place] [address] [place] [id number] [place] [address] 69396- 2433 Jun, [place] [address] [place] [id number] [place] [address] 37701- 8135 Jun, Hypokalemia E87.6 [place] [address] [place] [id number] [place] [address] 88796- 7542 Jun, Hypokalemia E87.6 [place] [address] [place] [id number] [place] [address] 76762- 6973 15 Jun, 2015 Neuroforaminal stenosis of spine M99.89 ; Hypokalemia E87.6 ; Neck pain M54.2 ; Essential hypertension I10 ; Mixed hyperlipidemia E78.2 and Screening breast examination Z12.39 [place] [address] [place] [id number] [place] [address] 24260- 9641 Jun, Dysuria R30.0 ; UTI (urinary tract infection) N39.0 and Hematuria R31.9 [place] [address] [place] [id number] [place] [address] 00945- 0083 May, [place] [address] [place] [id number] [place] [address] 17053- 5171 May, High risk sexual behavior Z72.51 ; Hypokalemia E87.6 ; Neuroforaminal stenosis of spine M99.89 ; Neck pain M54.2 ; Essential hypertension I10 ; Mixed hyperlipidemia E78.2 ; STD exposure Z20.2 and Concern about STD in female without diagnosis Z71.1 [place] [address] [place] [id number] [place] [address] 66931- 9792 16 May, 2015 Neuroforaminal stenosis of spine M99.89 ; Neck pain M54.2 ; Hypokalemia E87.6 ; Essential hypertension I10 and Mixed hyperlipidemia E78.2 [place] [address] [place] [id number] [place] [address] 75406- 0417 May, [facility] [id number] [place] [address] 42834 -2397 08 May, 2015 High risk sexual behavior Z72.51 ; STD exposure Z20.2 and Concern about STD in female without diagnosis Z71.1 [facility] [id number] [place] [address] 28225- 0954 05 May, 2015 [facility] [address] 93195- 3812 Apr, Neuroforaminal stenosis of spine M99.89 ; Mixed hyperlipidemia E78.2 ; Essential hypertension I10 and Hypokalemia E87.6 [place] [address] [place] [id number] [place] [address] 89515- 9466 Mar, [facility] [address] [place] [id number] [place] [address] 08443- 6221 Mar, Hypokalemia E87.6 [place] [address] [place] [id number] [place] [address] 81811- 7573 Mar, Neuroforaminal stenosis of spine M99.89 ; Mixed hyperlipidemia E78.2 ; Neck pain M54.2 ; Essential hypertension I10 ; Abnormal fasting glucose R73.09 ; Hypokalemia E87.6 and Constipation K59.00 [place] [address] [place] [id number] [place] [address] 06560- 7001 Feb, Neuroforaminal stenosis of spine M99.89 ; Mixed hyperlipidemia E78.2 ; Neck pain M54.2 ; Essential hypertension I10 ; Abnormal fasting glucose R73.09 ; Hypokalemia E87.6 and Constipation K59.00 [place] [address] [place] [id number] [place] [address] 42488- 4102 Feb, Elevated fasting blood sugar R73.01 [place] [id number] [place] [address] 29861- 5504 Feb, Elevated fasting blood sugar R73.01 [place] [address] [place] [id number] [place] [address] 86534- 2661 Feb, Hair loss L65.9 [place] [address] [place] [id number] [place] [address] 28989- 3359 Feb, Sinusitis J32.9 ; Essential hypertension I10 and Hair loss L65.9 [place] [address] [place] [id number] [place] [address] 26484- 1386 Jan, [place] [address] 61622- 4917 Jan, Essential hypertension I10 ; Neuroforaminal stenosis of spine M99.89 ; Neck pain M54.2 ; Mixed hyperlipidemia E78.2 and Anxiety F41.9 [place] [address] [place] [id number] [place] [address] 31315- 7409 Jan, [place] [address] [address]- [address] Jan, Mixed hyperlipidemia E78.2 ; Essential (primary) hypertension I10 ; Strain of muscle, fascia and tendon at neck level, subsequent encounter S16.1XXD and Tension-type headache, unspecified, not intractable G44.209 [place] [address] [place] [id number] [place] [address] 54294- 1170 Dec, Lumbar back pain 724.2 and Neuroforaminal stenosis of spine 724.00 [place] [address] [place] [id number] [place] [address] [id number]- 2210 Nov, [place] [address] 940[address]- [address]2 Nov, Lumbar back pain 724.2 and Neuroforaminal stenosis of spine 724.00 [place] [address] 27347- 4568 Nov, Edema 782.3 ; Lumbar back pain 724.2 ; Essential hypertension, benign 401.1 ; Hyperlipemia 272.4 ; Neuroforaminal stenosis of spine 724.00 and Post-concussion headache 339.20 [place] [id number] [address] Nov, [facility] [id number] [place] [address] 09500- 9702 Nov, [facility] [id number] [place] [address] 07858- 9145 Oct, Essential hypertension, benign 401.1 [facility] [address] [place] [id number] [place] [address] 32341- 9361 Oct, Edema 782.3 ; Lumbar back pain 724.2 ; Essential hypertension, benign 401.1 ; Hyperlipemia 272.4 ; Neuroforaminal stenosis of spine 724.00 and Post-concussion headache 339.20 [facility] [id number] [place] [address] 18452- 5169 Oct, [facility] [address] [place] [id number] [place] [address] 91825- 8178 Oct, Edema 782.3 [facility] [address] [place] [id number] [place] [address] 52583- 5147 Oct, Lumbar back pain 724.2 [facility] [id number] [place] [address] 83144- 1962 Oct, Cervicalgia 723.1 ; Lumbar back pain 724.2 and High risk medication use V58.69 [facility] [id number] [place] [address] 12124- 5596 Sep, [facility] [id number] [place] [address] 26940- 0167 Sep, Lumbar strain 847.2 [facility] [id number] [place] [address]- 1130 August, Edema 782.3 and Eustachian tube dysfunction 381.81 [facility] [id number] [address] August, [facility] [id number] [address] 48[address] August, Eustachian tube dysfunction 381.81 [facility] [id number] [place] [address], [place] [address] 2791 Jul, Otalgia 388.70 and Otitis media 382.9 [facility] [id number] [address] 08[address] Jul, [facility] [id number] [place] [address]- 5630 Jul, [facility] [id number] [place] [address], [place] [address]- 3062 Jul, [facility] [address] [id number] [address] 1317 Jul, [facility] [id number] [place] [address]- 6858 Jul, [facility] [id number], [place] [address] 69[address] Jun, [facility] [id number], [place] [address]- 5385 Jun, [facility] [id number] [address] 4439 Jun, [facility] [id number], [place] [address]- 3281 May, [facility] [id number] [address]- 4512 May, [facility] [id number] 4966 May, [facility] [id number] [address] 1697 May, [facility] [id number] [address] May, [facility] [place] [facility] [address] [id number] [place] [address]- 3265 May, [facility] [place] [facility] [address] [id number] [place] [address]- 1957 May, [facility] [place] [facility] [address] [id number] [place] [address]- 3259 May, [facility] [place] [facility] [address] [id number] [place] [address]- 7975 May, [facility] [place] [facility] [address] [id number] [place] [address]- 1853 May, [facility] [place] [facility] [address] [id number] [place] [address]- 6760 Apr, [facility] [place] [facility] [address] [id number] [place] [address]- 4704 Apr, [facility] [place] [facility] [address] [id number] [place] [address]- 3549 Apr, [facility] [place] [facility] [address] [id number] [place] [address]- 4308 Apr, [facility] [place] [facility] [address] [id number] [place] [address]- 7256 Apr, [facility] [place] [facility] [address] [id number] [place] [address]- 8778 Apr, [facility] [place] [facility] [address] [id number] [place] [address]- 8236 Apr, [facility] [place] [facility] [address] [id number] [place] [address]- 1341 Apr, [facility] [place] [facility] [address] [id number] [place] [address]- 3433 Apr, [facility] [place] [facility] [address] [id number] [place] [address]- 1858 Apr, [facility] [place] [facility] [address] [id number], [place] [address]- 1488 Apr, [facility] [place] [facility] [address] [id number] [place] [address]- 2709 Apr, [facility] [place] [facility] [address] [id number] [place] [address]- 2372 Apr, [facility] [place] [facility] [address] [facility] [id number] [place] [address]- 4918 Apr, [facility] [place] [facility] [address] [id number] [place] [address]- 9185 Apr, [facility] [place] [facility] [address] [facility] [id number] [place] [address]- 5088 Mar, [facility] [place] [facility] [address] [facility] [id number] [place] [address]- 6235 Mar, [facility] [place] [facility] [address] [facility] [id number], [place] [address]- 1399 Mar, [facility] [place] [facility] [address] [facility] [id number] [place] [address]- 9094 Mar, [facility] [place] [facility] [address] [facility] [id number] [place] [address]- 9432 Feb, [facility] [place] [facility] [address] [facility] [id number], [place] [address]- 2422 Feb, [facility] [place] [facility] [address] [facility] [id number], [place] [address]- 1446 Feb, [facility] [place] [facility] [address] [facility] [id number], [place] [address]- 8781 Feb, [facility] [place] [facility] [address] [id number], [place] [address]- 5085 Jan, [facility] [place] [facility] [address] [facility] [id number], [place] [address]- 6730 Jan, [facility] [place] [facility] [address] [facility] [id number], [place] [address]- 2769 Jan, [facility] [place] [facility] [address] [id number] [place] [address]- 6544 Jan, [facility] [place] [facility] [address] [id number] [place] [address]- 8650 Jan, [facility] [place] [facility] [address] [id number] [place] [address]- 5360 Jan, [facility] [place] [facility] [address] [id number] [place] [address]- 3920 Jan, [facility] [place] [facility] [address] [id number] [place] [address]- 0298 Jan, [facility] [place] [facility] [address] [id number] [place] [address]- 9546 Dec, [facility] [place] [facility] [address] [id number] [place] [address]- 1997 Dec, [facility] [place] [facility] [address] [id number] [place] [address]- 5109 Dec, [facility] [place] [facility] [address] [id number] [place] [address]- 4702 Dec, [facility] [place] [facility] [address] [id number] [place] [address]- 1597 Oct, [facility] [place] [facility] [address] [id number] [place] [address]- 9525 Oct, [facility] [place] [facility] [address] [id number] [place] [address]- 0318 Oct, [facility] [place] [facility] [address] [id number] [place] [address]- 5210 Oct, [facility] [place] [facility] [address] [id number] [place] [address]- 0740 Oct, [facility] [place] [facility] [address] [id number] [place] [address]- 6032 Oct, [facility] [place] [facility] [address] [id number] [place] [address]- 3590 Oct, [facility] [place] [facility] [address] [id number] [place] [address]- 9803 Oct, [facility] [place] [facility] [address] [id number] [place] [address]- 2569 Sep, [facility] [place] [facility] [address] [id number] [place] [address]- 0638 Sep, [facility] [place] [facility] [address] [id number] [place] [address]- 1191 Sep, [facility] [place] [facility] [address] [id number] [place] [address]- 1241 Sep, [facility] [place] [facility] [address] [id number] [place] [address]- 9313 Sep, [facility] [place] [facility] [address] [id number] [place] [address]- 6245 Sep, [facility] [place] [facility] [address] [id number] [place] [address]- 5359 Sep, [facility] [place] [facility] [address] [id number] [place] [address]- 1864 Sep, [facility] [place] [facility] [address] [id number] [place] [address]- 7745 Sep, [facility] [place] [facility] [address] [id number] [place] [address]- 1533 Sep, [facility] [place] [facility] [address] [id number], [place] [address]- 5853 August, [facility] [place] [facility] [address] [id number] [place] [address]- 6175 August, [facility] [place] [facility] [address] [id number] [place] [address]- 0121 August, [facility] [place] [facility] [address] [id number] [place] [address]- 3462 August, [facility] [place] [facility] [address] [id number] [place] [address]- 9578 August, [facility] [place] [facility] [address] [id number] [place] [address]- 9972 August, [facility] [place] [facility] [address] [id number] [place] [address]- 5260 August, [facility] [place] [facility] [address] [id number] [place] [address]- 3192 August, [facility] [place] [facility] [address] [id number] [place] [address]- 7958 August, [facility] [place] [facility] [address] [id number] [place] [address]- 9343 August, [facility] [place] [facility] [address] [id number] [place] [address]- 3922 August, [facility] [place] [facility] [address] [id number] [place] [address]- 8236 August, [facility] [place] [facility] [address] [id number] [place] [address]- 8125 Jul, [facility] [place] [facility] [address] [id number] [place] [address]- 1295 Jul, [facility] [place] [facility] [address] [id number] [place] [address]- 0890 Jul, [facility] [place] [facility] [address] [id number] [place] [address]- 9266 Jul, [facility] [place] [facility] [address] [id number] [place] [address]- 5978 Jul, [facility] [place] [facility] [address] [id number] [place] [address]- 3380 Jul, [facility] [place] [facility] [address] [id number] [place] [address]- 8416 Jun, [facility] [place] [facility] [address] [id number] [place] [address]- 5087 Jun, [facility] [place] [facility] [address] [id number] [place] [address]- 4301 May, [facility] [place] [facility] [address] [id number] [place] [address]- 2914 May, [facility] [place] [facility] [address] [id number] [place] [address]- 8888 Apr, [facility] [place] [facility] [address] [id number] [place] [address]- 7667 Apr, [facility] [place] [facility] [address] [id number] [place] [address]- 3636 Apr, [facility] [place] [facility] [address] [id number] [place] [address]- 7484 Apr, [facility] [place] [facility] [address] [id number] [place] [address]- 4313 Apr, [facility] [place] [facility] [address] [id number] [place] [address]- 5028 Apr, [facility] [place] [facility] [address] [id number] [place] [address]- 4524 Apr, [facility] [place] [facility] [address] [id number] [place] [address]- 3535 Apr, [facility] [place] [facility] [address] [id number] [place] [address]- 8955 Apr, [facility] [place] [facility] [address] [id number], [place] [address]- 8373 Apr, [facility] [place] [facility] [address] [id number] [place] [address]- 6241 Apr, [facility] [place] [facility] [address] [id number] [place] [address]- 1585 Apr, [facility] [place] [facility] [address] [id number] [place] [address]- 7736 Apr, [facility] [place] [facility] [address] [id number], [place] [address]- 8709 Mar, [facility] [place] [facility] [address] [id number] [place] [address]- 3298 Mar, [facility] [place] [facility] [address] [id number], [place] [address]- 4797 Mar, [facility] [place] [facility] [address] [id number] [place] [address]- 6904 Mar, [facility] [place] [facility] [address] [id number] [place] [address]- 2059 Feb, [facility] [place] [facility] [address] [id number] [place] [address]- 0247 Feb, [facility] [place] [facility] [address] [id number] [place] [address]- 9627 Feb, [facility] [place] [facility] [address] [id number], [place] [address]- 7857 Feb, [facility] [place] [facility] [address] [id number], [place] [address]- 2525 Jan, [facility] [place] [facility] [address] [id number], [place] [address]- 2142 14 Jan, 2013 [facility] [place] [facility] [address] [id number], [place] [address]- 6735 Jan, [facility] [place] [facility] [address] [id number], [place] [address]- 3140 Jan, [facility] [place] [facility] [address] [id number], [place] [address]- 9486 Jan, [facility] [place] [facility] [address] [id number], [place] [address]- 4461 Jan, [facility] [place] [facility] [address] [id number], [place] [address]- 1682 Jan, [facility] [place] [facility] [address] [id number], [place] [address]- 2924 Jan, [facility] [place] [facility] [address] [id number] [place] [address]- 0976 Jan, [facility] [address] [id number] [place] [address]- 5883 26 Dec, 2012 [facility] [place] [facility] [address] [id number] [place] [address]- 6466 16 Dec, 2012 [facility] [address] [id number] [place] [address]- 5776 16 Dec, 2012 [facility] [address] [id number] [place] [address]- 9432 13 Dec, 2012 [facility] [address] [id number] [place] [address]- 7161 Nov, [facility] [address] [id number] [place] [address]- 9752 Nov, [facility] [address] [id number] [place] [address]- 8833 Nov, [facility] [address] [id number] [place] [address]- 5981 Nov, [facility] [address] [id number] [place] [address]- 6111 Oct, [facility] [address] [id number] [place] [address]- 0832 Sep, [facility] [address] [id number] [place] [address]- 3326 August, [facility] [address] [id number] [place] [address]- 9619 August, [facility] [place] [facility] [address] [id number] [place] [address]- 3492 August, [facility] [place] [facility] [address] [id number] [place] [address]- 9836 August, [facility] [place] [facility] [address] [id number] [place] [address]- 0260 August, [facility] [address] [id number] [place] [address]- 7521 August, [facility] [address] [id number] [place] [address]- 7632 August, [facility] [address] [id number] [place] [address]- 4274 August, [facility] [address] [id number] [place] [address]- 7896 August, [facility] [address] [id number] [place] [address]- 1841 August, [facility] [address] [id number] [place] [address]- 7084 August, [facility] [address] [id number] [place] [address]- 8069 August, [facility] [address] [id number] [place] [address]- 1155 Jul, [facility] [address] [id number] [place] [address]- 9991 Jul, [facility] [address] [id number] [place] [address]- 4600 Jul, [facility] [address] [id number] [place] [address]- 6824 Jul, [facility] [place] [facility] [address] [id number], [place] [address]- 2179 Jul, [facility] [place] [facility] [address] [id number] [place] [address]- 6480 Jul, [facility] [place] [facility] [address] [id number] [place] [address]- 0805 Jul, [facility] [place] [facility] [address] [id number] [place] [address]- 0189 Jul, [facility] [place] [facility] [address] [id number] [place] [address] 2546 Jul, [facility] [address] [id number] [place] [address]- 7786 Jul, [facility] [place] [facility] [address] [facility] [id number] [place] [address]- 1896 Jul, [facility] [address] [facility] [id number] [place] [address]- 1406 Jun, [facility] [place] [facility] [address] [id number] [place] [address]- 0866 Jun, [facility] [address] [id number] [place] [address]- 0373 Jun, [facility] [place] [facility] [address] [facility] [id number] [place] [address]- 2546 Jun, [facility] [address] [id number] [place] [address]- 3790 May, [facility] [place] [facility] [address] [id number] [place] [address]- 0128 14 May, 2012 [facility] [place] [facility] [id number] [place] [address]- 5256 05 May, 2012 [facility] [address] [facility] [id number] [place] [address]- 8316 May, [facility] [place] [facility] [id number] [place] [address]- 2546 May, [facility] [place] [facility] [address] [facility] [id number] [place] [address]- 2546 May, [facility] [place] [facility] [address] [id number] [place] [address]- 2546 Apr, [facility] [place] [facility] [address] [facility] [id number] [place] [address]- 2546 Apr, [facility] [place] [facility] [address] [facility] [id number] [place] [address]- 4051 Apr, [facility] [place] [facility] [address] [id number] [place] [address]- 6478 Apr, [facility] [place] [facility] [address] [id number] [place] [address]- 0000 Mar, [facility] [place] [facility] [address] [id number] [place] 9066 Mar, [facility] [place] [facility] [address] [id number] [place] [address]- 7021 Mar, [facility] [place] [facility] [address] [id number] [place] [address]- 6106 Mar, [facility] [place] [facility] [address] [id number] [place] [address]- 1954 Mar, [facility] [place] [facility] [address] [id number] [place] [address]- 9027 Mar, [facility] [place] [facility] [address] [id number] [place] [address]- 4496 Mar, [facility] [place] [facility] [address] [id number] [place] [address]- 3421 Feb, [facility] [place] [facility] [address] [id number], [place] [address]- 9448 Feb, [facility] [place] [facility] [address] [id number], [place] [address]- 5301 Feb, [facility] [place] [facility] [address] [id number], [place] [address]- 0706 Feb, [facility] [place] [facility] [address] [id number] [place] [address]- 4301 Jan, [facility] [place] [facility] [address] [id number], [place] [address]- 4516 Jan, [facility] [place] [facility] [address] [id number], [place] [address]- 4143 Jan, [facility] [place] [facility] [address] [id number], [place] [address] Jan, [facility] [address] [id number] [place] [address] Jan, [facility] [place] [facility] [address] [id number] [place] [address] Jan, [facility] [place] [facility] [address] [id number] [place] [address] Dec, [facility] [place] [facility] [address] [id number] [place] [address] Dec, [facility] [place] [facility] [address] [id number] [place] [address] Nov, [facility] [place] [facility] [address] [id number] [place] [address] Sep, [facility] [id number] [address] August, [facility] [place] [facility] [address] [id number] [place] [address] August, [facility] [address] [id number] [place] [address] August, [facility] [place] [facility] [address] [id number] [address] August, [facility] [place] [facility] [address] [id number] [place] [address] August, [facility] [place] [facility] [address] [id number], [place] [address] Jun, [facility] [place] [facility] [address] [id number] [place] [address] Jun, [facility] [place] [facility] [address] [facility] [id number] [place] [address] Apr, [facility] [place] [facility] [address] [id number] [place] [address] Apr, [facility] [place] [facility] [address] [id number] [place] [address] 23 Mar, 2011 [facility] [place] [facility] [address] [id number] [place] [address] Feb, [facility] [place] [facility] [address] [id number] [place] [address] 14 Feb, 2011 [facility] [place] [facility] [address] [id number] [place] [address] 14 Feb, 2011 [facility] [place] [facility] [address] [id number] [place] [address] 17 Jan, 2011 [facility] [place] [facility] [address] [id number] [place] [address] 15 Jan, 2011 [facility] [place] [facility] [address] [id number] [place] [address] 15 Jan, 2011 [facility] [place] [facility] [address] [id number] [place] [address] 14 Jan, 2011 [facility] [place] [facility] [address] [id number] [place] [address] 15 May, 2010 [facility] [place] [facility] [address] [id number] [place] [address] Mar, [facility] [place] [facility] [address] [id number] [place] [address] Oct, [facility] [place] [facility] [address] [id number] [place] [address] Sep, [facility] [place] [facility] [address] [id number] [place] [address] Mar, [facility] [place] [facility] [address] [id number] [place] [address] Jan, [facility] [place] [facility] [address] [id number] [place] [address] Jan, [facility] [place] [facility] [address] [id number] [place] [address] May, IMMUNIZATIONS No Known Immunizations SOCIAL HISTORY Never Assessed REASON FOR VISIT renal US/controlled med refill PLAN OF CARE VITAL SIGNS MEDICATIONS Medication Instructions Dosage Frequency Start Date End Date Duration Status Hydrocodone-Acetaminophen 5-325 MG Orally 3 -4 times a day prn. must last 4 weeks 1 tablet as needed Nov, Dec, 28 days Active RESULTS Name Result Date Reference Range Ultrasound : Renal, COMPLETE 2017-11-21 PROCEDURES No Known procedures INSTRUCTIONS MEDICATIONS ADMINISTERED [...]
--- OUTSIDE RECORDS SUMMARY | 2018-06-10 04:47 | XMS REPORT ---
Author Author SHIELA JULIEN [facility] Address [address] [place] [address] Care Team Providers Care Professor Of French Name Role Phone SHIELA JULIEN Unavailable PROBLEMS Type Condition ICD9-CM Code QTG69-XI Code Onset Dates Condition Status SNOMED Code Problem Hematuria, unspecified type R31.9 Active 92879452 Problem Anxiety F41.9 Active 47370601 Problem Abnormal renal ultrasound R93.429 Active 15448432550340884 Problem Abnormal glucose R73.09 Active 210979837 Problem 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 Active 096028566 Problem Hypokalemia E87.6 Active 35946758 Problem Neck pain M54.2 Active 06821720 Problem Neuroforaminal stenosis of spine M99.89 Active 704684952108 Problem Mixed hyperlipidemia E78.2 Active 39618172 Problem Essential hypertension I10 Active 13259642 ALLERGIES No Information ENCOUNTERS Encounter Location Date Diagnosis [place] [address] [address] Feb, [place] [address] 61675- 8319 13 Dec, 2017 Lateral epicondylitis, right elbow M77.11 [place] [address] 08727- 6305 11 Dec, 2017 Allergic rhinitis due to pollen, unspecified seasonality J30.1 and Allergic conjunctivitis of both eyes H10.13 [place] [address] 90708- 1351 10 Dec, 2017 Neuroforaminal stenosis of spine M99.89 [place] [address] 43609- 3764 06 Dec, 2017 Mixed hyperlipidemia E78.2 [place] [address] [place] [id number] [place] [address] 50365- 2730 Dec, Abnormal glucose R73.09 ; Abnormal renal ultrasound R93.429 ; Dysuria R30.0 ; Cystitis without hematuria N30.90 ; Hypokalemia E87.6 ; Mixed hyperlipidemia E78.2 and Hematuria, unspecified type R31.9 [place] [address] [place] [id number] [place] [address] 46315- 0208 Nov, Hypokalemia E87.6 ; Mixed hyperlipidemia E78.2 and Hematuria , unspecified type R31.9 [place] [address] [place] [id number] [place] [address] 66531- 6308 Nov, [place] [address] 24033- 5659 Nov, Hypokalemia E87.6 [place] [address] 28977- 1915 Nov, [place] [address] [place] [id number] [place] [address] 20463- 9960 Nov, Abnormal renal ultrasound R93.429 [place] [address] 77381- 1066 Nov, Abnormal renal ultrasound R93.429 [place] [address] [place] [id number] [place] [address] 45692- 6604 Nov, Hematuria, unspecified type R31.9 and Neuroforaminal stenosis of spine M99.89 [place] [address] [place] [id number] [place] [address] 20909- 7472 Nov, Dysuria R30.0 [place] [address] 64188- 4921 Oct, Lateral epicondylitis, right elbow M77.11 [place] [address] [place] [id number] [place] [address] 80918- 0454 Oct, Neuroforaminal stenosis of spine M99.89 ; Visit for TB skin test Z11.1 and Essential hypertension I10 [place] [address] [place] [id number] [place] [address] 20366- 1820 16 Oct, 2017 [place] [address] [place] [id number] [place] [address] 81161- 9634 Oct, Neuroforaminal stenosis of spine M99.89 [place] [address] 76483- 5210 10 Oct, 2017 Visit for TB skin test Z11.1 [place] [address] [place] [id number] [place] [address] 33898- 2663 05 Oct, 2017 Cystitis without hematuria N30.90 [place] [address] [place] [id number] [place] [address] 32985- 8354 28 Sep, 2017 Screening breast examination Z12.39 [place] [address] [place] [id number] [place] [address] 01403- 8033 26 Sep, 2017 Dysuria R30.0 and Cystitis without hematuria N30.90 [place] [address] [place] [id number] [place] [address] 27909- 4171 14 Sep, 2017 Essential hypertension I10 and Neuroforaminal stenosis of spine M99.89 [place] [address] [place] [id number] [place] [address] 46439- 2704 Sep, Abnormal glucose R73.09 [place] [address] [place] [id number] [place] [address] 58134- 9311 August, Lateral epicondylitis, right elbow M77.11 [place] [address] [place] [id number] [place] [address] 02527- 5464 August, Screen for STD (sexually transmitted disease) Z11.3 [place] [address] [place] [id number] [place] [address] 62086- 9616 August, Neuroforaminal stenosis of spine M99.89 ; Mixed hyperlipidemia E78.2 ; Elevated fasting glucose R73.01 ; Screening mammogram, encounter for Z12.31 and Encounter for well woman exam without gynecological exam Z00.00 [facility] [address] [place] [id number] [place] [address] 56751- 9694 August, Neuroforaminal stenosis of spine M99.89 [facility] [address] [place] [id number] [place] [address] 84355- 2236 August, Essential hypertension I10 ; Hypokalemia E87.6 and Mixed hyperlipidemia E78.2 [place] [address] [place] [id number] [place] [address] 37412- 4177 Jul, [place] [address] [place] [id number] [place] [address] 74382- 3093 Jul, Neuroforaminal stenosis of spine M99.89 [place] [address] [place] [id number] [place] [address] 37702- 8296 Jul, Lateral epicondylitis, right elbow M77.11 [place] [address] [place] [id number] [place] [address] 98716- 1377 Jul, [place] [address] [place] [id number] [place] [address] 02677- 1146 Jun, High ankle sprain of right lower extremity, initial encounter S93.431A [place] [address] [place] [address] 12073- 3673 Jun, Essential hypertension I10 [place] [address] [place] [id number] [place] [address] 80226- 6239 Jun, [facility] [address] [place] [id number] [place] [address] 75361- 2540 Jun, [place] [address] [place] [id number] [place] [address] 16972- 4483 Jun, Neuroforaminal stenosis of spine M99.89 [facility] [address] [place] [address] 46388- 7382 Jun, Pain of right upper extremity M79.601 and Essential hypertension I10 [place] [address] [place] [id number] [place] [address] 81916- 1574 Jun, [place] [address] 77844- 3997 Jun, Dysuria R30.0 ; Acute cystitis with hematuria N30.01 and Screen for STD (sexually transmitted disease) Z11.3 [place] [id number] [place] [address] 24678- 9858 May, 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 [place] [address] [place] [id number] [place] [address] 51974- 9556 May, Essential hypertension I10 [address] 21863- 3795 May, Neuroforaminal stenosis of spine M99.[address] 40077- 0758 Apr, Allergic reaction, initial encounter T78.40XA [place] [address] [place] [id number] [place] [address] 95440- 3342 Apr, Low back pain, unspecified back pain laterality, unspecified chronicity, with sciatica presence unspecified M54.5 ; Acute cystitis with hematuria N30.01 ; Neuroforaminal stenosis of spine M99.89 ; Bilateral acute serous otitis media, recurrence not specified H65.03 ; Mixed hyperlipidemia E78.2 ; Essential hypertension I10 ; Immunization counseling Z71.89 and Encounter for immunization Z23 [place] [address] [place] [id number] [place] [address] 45481- 7740 Apr, Neck pain M54.[address] 36528- 9146 Mar, Neuroforaminal stenosis of spine M99.89 [place] [address] [place] [id number] [place] [address] 10392- 6818 Mar, Pharyngitis due to other organism J02.8 [place] [address] [place] [id number] [place] [address] 44728- 9452 Feb, Neuroforaminal stenosis of spine M99.89 [facility] [address] 37867- 2260 Feb, UTI (urinary tract infection) N39.0 [facility] [address] [place] [id number] [place] [address] 38257- 1609 Feb, Recent urinary tract infection Z87.440 ; Neuroforaminal stenosis of spine M99.89 ; Neck pain M54.2 ; 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 and Recurrent UTI N39.0 [place] [address] 49107- 8013 Feb, [place] [address] [place] [id number] [place] [address] 16783- 3731 Jan, Neuroforaminal stenosis of spine M99.89 [place] [address] 04836- 0838 Dec, Neuroforaminal stenosis of spine M99.89 [place] [address] 75104- 7208 Dec, Acute seasonal allergic rhinitis due to pollen J30.1 [place] [address] [place] [id number] [place] [address] 65388- 1367 Dec, [place] [address] 99486- 2962 Dec, Acute seasonal allergic rhinitis, unspecified trigger J30.2 ; Allergic conjunctivitis of both eyes H10.13 and Dysfunction of both eustachian tubes H69.83 [place] [address] 43380- 2081 Dec, [place] [address] 36521- 5957 06 Dec, 2016 Nevus D22.9 [place] [address] 60953- 5742 Nov, 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 and Neuroforaminal stenosis of spine M99.89 [facility] [address] [place] [id number] [place] [address] 78142- 1094 Nov, Neuroforaminal stenosis of spine M99.89 ; Essential hypertension I10 ; Mixed hyperlipidemia E78.2 ; Hypokalemia E87.6 ; Neck pain M54.2 and Nevus D22.9 [facility] [address] [place] [id number] [place] [address] 15845- 3596 Oct, Neuroforaminal stenosis of spine M99.89 [place] [address] [place] [id number] [place] [address] 06426- 3917 Sep, Neuroforaminal stenosis of spine M99.89 [place] [address] [place] [id number] [place] [address] 98755- 4525 Sep, [facility] [address] [place] [id number] [place] [address] 17690- 4623 August, [facility] [address] [place] [id number] [place] [address] 28762- 2928 August, Neck pain M54.2 and Neuroforaminal stenosis of spine M99.89 [facility] [address] [place] [id number] [place] [address] 83827- 5940 August, Routine gynecological examination Z01.419 and Screening breast examination Z12.39 [facility] [address] [place] [id number] [place] [address] 87501- 5946 Jul, [facility] [address] [place] [id number] [place] [address] 01757- 6675 Jul, [facility] [address] [place] [id number] [place] [address] 07394- 6179 Jul, Neuroforaminal stenosis of spine M99.89 [facility] [address] [place] [id number] [place] [address] 05194- 3218 Jul, [place] [address] [place] [address] 51276- 2985 Jul, 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 [place] [address] [place] [id number] [place] [address] 99333- 8970 Jul, [place] [address] [place] [id number] [place] [address] 56763- 2119 Jul, [place] [address] [place] [id number] [place] [address] 30689- 3747 Jun, Neuroforaminal stenosis of spine M99.89 [place] [address] [place] [id number] [place] [address] 70918- 5580 Jun, Uterine leiomyoma, unspecified location D25.9 and Allergic reaction caused by a drug, initial encounter T78.40XA [place] [address] [place] [id number] [place] [address] 52446- 9155 Jun, [place] [address] [place] [id number] [place] [address] 27040- 7931 May, UTI symptoms R39.9 and Pain of right sacroiliac joint M53.3 [place] [address] [place] [id number] [place] [address] 46300- 5700 May, Neuroforaminal stenosis of spine M99.89 [place] [address] [place] [id number] [place] [address] 68402- 3374 May, [place] [address] [place] [id number] [place] [address] 20373- 8476 May, Acute mucoid otitis media of left ear H65.112 and Acute non- recurrent maxillary sinusitis J01.00 [place] [address] [place] [address] 70435- 1403 May, Acute bacterial conjunctivitis of both eyes H10.33 ; Left arm pain M79.602 and Hypokalemia E87.6 [place] [address] [place] [id number] [place] [address] 21436- 4643 Apr, [place] [address] [place] [id number] [place] [address] 65514- 6002 Apr, Neuroforaminal stenosis of spine M99.89 ; Neck pain M54.2 ; 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 ; Mixed hyperlipidemia E78.2 ; Essential hypertension I10 and Hypokalemia E87.6 [place] [address] 32427- 8727 Mar, Oral candidiasis B37.0 ; Neuroforaminal stenosis of spine M99.89 ; Neck pain M54.2 and 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 [place] [address] [place] [id number] [place] [address] 59119- 3574 Feb, [place] [address] [place] [id number] [place] [address] 13444- 4723 Feb, [place] [address] [place] [id number] [place] [address] 95477- 7403 Feb, UTI (urinary tract infection) N39.0 [place] [address] [place] [id number] [place] [address] 57369- 4528 Feb, Dysuria R30.0 [place] [address] [place] [id number] [place] [address] 00125- 6963 Feb, Dysuria R30.0 [place] [address] [place] [id number] [place] [address] 42814- 8994 Feb, Neuroforaminal stenosis of spine M99.89 ; Neck pain M54.2 ; Essential hypertension I10 ; 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 ; Dysuria R30.0 ; Abnormal MRI, shoulder R93.8 and Acute cystitis without hematuria N30.00 [place] [address] [place] [address] 44918- 6458 Jan, [place] [address] [place] [id number] [place] [address] 06584- 5739 Jan, [facility] [address] [address]- 7997 Jan, [facility] [address] [place] [id number] [place] [address] 65886- 8308 Jan, Abnormal MRI R93.8 [facility] [address] [place] [id number] [place] [address] 14769- 2774 29 Dec, 2015 [facility] [address] [place] [id number] [place] [address] 73841 -2891 15 Dec, 2015 Acute pain of left shoulder M25.512 [facility] [address] [place] [id number] [place] [address] 63767- 8754 09 Dec, 2015 [facility] [address] [place] [id number] [place] [address] 86137- 9940 08 Dec, 2015 [facility] [address] [place] [id number] [place] [address] 32354- 6564 07 Dec, 2015 Acute pain of left shoulder M25.512 [facility] [address] [place] [id number] [place] [address] 69817- 1453 Nov, [facility] [address] [place] [id number] [place] [address] 21240- 2883 16 Nov, 2015 Neuroforaminal stenosis of spine M99.89 ; Neck pain M54.2 ; Abnormal mammogram R92.8 ; Essential hypertension I10 and 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 [facility] [address] [place] [id number] [place] [address] 22232- 4010 Nov, [facility] [address] [place] [id number] [place] [address] 43421- 3226 Oct, Acute stress disorder F43.0 [facility] [address] [place] [id number] [place] [address] 93732- 4217 Oct, [facility] [address] [place] [id number] [place] [address] 27071- 4999 Oct, [facility] [address] [address]- 2972 Oct, [facility] [address] [place] [address] 83245- 5267 Sep, [facility] [address] [address]- 6404 August, [facility] [address] [place] [address] 32126- 0436 Jul, Neuroforaminal stenosis of spine M99.89 ; Neck pain M54.2 ; Abnormal mammogram R92.8 and Essential hypertension I10 [facility] [address] [place] [id number] [place] [address] 63553- 5648 Jul, [facility] [address] [place] [id number] [place] [address] 42829- 7786 Jul, [facility] [address] [place] [id number] [place] [address] 34861- 2555 Jul, Abnormal mammogram R92.8 [facility] [address] [place] [address] 06826- 4491 Jul, [facility] [address] [place] [address] 99215- 6764 Jul, UTI (urinary tract infection) N39.0 [facility] [address] [place] [address] 40791- 0109 Jul, Dysuria R30.0 [facility] [address] [address]- 0262 Jun, [facility] [address] [place] [address] 84633- 6804 Jun, [facility] [address] [place] [address] 65040- 8699 Jun, Hypokalemia E87.6 and Hematuria R31.9 [facility] [address] [place] [id number] [place] [address] 04220- 3435 Jun, Hypokalemia E87.6 [place] [address] [place] [id number] [place] [address] 62748- 4439 Jun, [place] [address] [place] [id number] [place] [address] 91585- 0100 Jun, Hypokalemia E87.6 [place] [address] [place] [id number] [place] [address] 33842- 7606 Jun, Hypokalemia E87.6 [place] [address] [place] [id number] [place] [address] 05280- 9942 15 Jun, 2015 Neuroforaminal stenosis of spine M99.89 ; Hypokalemia E87.6 ; Neck pain M54.2 ; Essential hypertension I10 ; Mixed hyperlipidemia E78.2 and Screening breast examination Z12.39 [place] [address] [place] [id number] [place] [address] 89444- 6920 Jun, Dysuria R30.0 ; UTI (urinary tract infection) N39.0 and Hematuria R31.9 [place] [address] [place] [id number] [place] [address] 57017- 2719 May, [place] [address] [place] [id number] [place] [address] 68585- 4401 May, High risk sexual behavior Z72.51 ; Hypokalemia E87.6 ; Neuroforaminal stenosis of spine M99.89 ; Neck pain M54.2 ; Essential hypertension I10 ; Mixed hyperlipidemia E78.2 ; STD exposure Z20.2 and Concern about STD in female without diagnosis Z71.1 [place] [address] [place] [id number] [place] [address] 66113- 3118 16 May, 2015 Neuroforaminal stenosis of spine M99.89 ; Neck pain M54.2 ; Hypokalemia E87.6 ; Essential hypertension I10 and Mixed hyperlipidemia E78.2 [place] [address] [place] [id number] [place] [address] 22392- 2153 May, [facility] [address] [place] [address] 76271 -6384 08 May, 2015 High risk sexual behavior Z72.51 ; STD exposure Z20.2 and Concern about STD in female without diagnosis Z71.1 [facility] [address] [place] [id number] [place] [address] 13506- 0686 May, [facility] [address] 44126- 5454 Apr, Neuroforaminal stenosis of spine M99.89 ; Mixed hyperlipidemia E78.2 ; Essential hypertension I10 and Hypokalemia E87.6 [place] [address] [place] [id number] [place] [address] 50764- 9919 Mar, [facility] [address] [place] [id number] [place] [address] 94851- 1803 Mar, Hypokalemia E87.6 [place] [address] [place] [id number] [place] [address] 48738- 9815 Mar, Neuroforaminal stenosis of spine M99.89 ; Mixed hyperlipidemia E78.2 ; Neck pain M54.2 ; Essential hypertension I10 ; Abnormal fasting glucose R73.09 ; Hypokalemia E87.6 and Constipation K59.00 [place] [address] [place] [id number] [place] [address] 22592- 7546 Feb, Neuroforaminal stenosis of spine M99.89 ; Mixed hyperlipidemia E78.2 ; Neck pain M54.2 ; Essential hypertension I10 ; Abnormal fasting glucose R73.09 ; Hypokalemia E87.6 and Constipation K59.00 [place] [address] [place] [id number] [place] [address] 60889- 2495 Feb, Elevated fasting blood sugar R73.01 [place] [id number] [place] [address] 01062- 1636 Feb, Elevated fasting blood sugar R73.01 [place] [address] [place] [id number] [place] [address] 56605- 1294 Feb, Hair loss L65.9 [place] [address] 36860- 6126 Feb, Sinusitis J32.9 ; Essential hypertension I10 and Hair loss L65.9 [place] [address] 37655- 0353 Jan, [place] [address] 56080- 8905 Jan, Essential hypertension I10 ; Neuroforaminal stenosis of spine M99.89 ; Neck pain M54.2 ; Mixed hyperlipidemia E78.2 and Anxiety F41.9 [place] [address] [place] [id number] [place] [address] Jan, [place] [address] [address] Jan, Mixed hyperlipidemia E78.2 ; Essential (primary) hypertension I10 ; Strain of muscle, fascia and tendon at neck level, subsequent encounter S16.1XXD and Tension-type headache, unspecified, not intractable G44.209 [place] [address] [place] [id number] [place] [address] 13650- 4779 Dec, Lumbar back pain 724.2 and Neuroforaminal stenosis of spine 724.00 [place] [address] [place] [id number] [place] [address]- [address] Nov, [place] [address] [address] Nov, Lumbar back pain 724.2 and Neuroforaminal stenosis of spine 724.00 [place] [address] [address] Nov, Edema 782.3 ; Lumbar back pain 724.2 ; Essential hypertension, benign 401.1 ; Hyperlipemia 272.4 ; Neuroforaminal stenosis of spine 724.00 and Post-concussion headache 339.20 [facility] [id number] [address] Nov, [facility] [address] [place] [id number] [place] [address]- [address]658 Nov, [facility] [address] [place] [id number] [place] [address]- [address]83 Oct, Essential hypertension, benign 401.1 [facility] [address] [place] [id number] [place] [address] 6[address]- [address] Oct, Edema 782.3 ; Lumbar back pain 724.2 ; Essential hypertension, benign 401.1 ; Hyperlipemia 272.4 ; Neuroforaminal stenosis of spine 724.00 and Post-concussion headache 339.20 [facility] [address] [place] [id number] [place] [address] 16073- 7779 Oct, [facility] [address] [place] [id number] [place] [address] 30482- 4452 Oct, Edema 782.3 [facility] [address] [place] [id number] [place] [address] 13414- 6322 Oct, Lumbar back pain 724.2 [facility] [address] [place] [id number] [place] [address] 43158- 5989 Oct, Cervicalgia 723.1 ; Lumbar back pain 724.2 and High risk medication use V58.69 [facility] [id number] [place] [address] 14786- [address]047 Sep, [facility] [id number] [place] [address] 65552- 0396 Sep, Lumbar strain 847.2 [facility] [address] [place] [id number] [place] [address] 22256- 5680 August, Edema 782.3 and Eustachian tube dysfunction 381.81 [facility] [id number] [place] [address] 42432- 6536 August, [facility] [id number] [address] August, Eustachian tube dysfunction 381.81 [facility] [address] [place] [id number] [place] [address], [place] [address] Jul, Otalgia 388.70 and Otitis media 382.9 [facility] [id number] [place] [address] Jul, [facility] [id number] [place] [address] Jul, [facility] [id number] [place] [address], [place] [address]- [address] Jul, [facility] [id number] [address] Jul, [facility] [id number] [place] [address] Jul, [facility] [id number] [address] Jun, [facility] [id number] [address] 8[address] Jun, [facility] [id number] [address] Jun, [facility] [id number] [address] 89[address] May, [facility] [id number] [address] 8[address] May, [facility] [id number] [address] May, [facility] [id number] [address] May, [facility] [id number] [address] 7[address] May, [facility] [place] [facility] [address] [id number] [place] [address]- 8[address] May, [facility] [place] [facility] [address] [id number] [place] [address]- 3290 May, [facility] [place] [facility] [address] [id number] [place] [address]- 1638 May, [facility] [place] [facility] [address] [id number] [place] [address]- 5250 May, [facility] [place] [facility] [address] [id number] [place] [address]- 3927 May, [facility] [place] [facility] [address] [id number] [place] [address]- 5001 Apr, [facility] [place] [facility] [address] [id number] [place] [address]- 5091 Apr, [facility] [place] [facility] [address] [id number] [place] [address]- 7190 Apr, [facility] [place] [facility] [address] [id number] [place] [address]- 1236 Apr, [facility] [place] [facility] [address] [id number] [place] [address]- 9670 Apr, [facility] [place] [facility] [address] [id number] [place] [address]- 4973 Apr, [facility] [place] [facility] [address] [id number] [place] [address]- 6021 Apr, [facility] [place] [facility] [address] [id number] [place] [address]- 9283 Apr, [facility] [place] [facility] [address] [id number] [place] [address]- 6463 Apr, [facility] [place] [facility] [address] [id number] [place] [address]- 0564 Apr, [facility] [place] [facility] [address] [id number] [place] [address]- 3238 Apr, [facility] [place] [facility] [address] [id number] [place] [address]- 9958 Apr, [facility] [place] [facility] [address] [id number] [place] [address]- 5454 Apr, [facility] [place] [facility] [address] [id number] [place] [address]- 7460 Apr, [facility] [place] [facility] [address] [id number] [place] [address]- 6137 Apr, [facility] [place] [facility] [address] [id number] [place] [address] Mar, [facility] [place] [facility] [address] [id number] [place] [address]- 6846 Mar, [facility] [place] [facility] [address] [id number] [place] [address]- 5731 Mar, [facility] [place] [facility] [address] [id number] [place] [address]- 6730 Mar, [facility] [place] [facility] [address] [id number] [place] [address]- 6742 Feb, [facility] [place] [facility] [address] [facility] [id number] [place] [address]- 7933 Feb, [facility] [place] [facility] [address] [id number] [place] [address]- 0494 Feb, [facility] [place] [facility] [address] [id number], [place] [address]- 7904 Feb, [facility] [place] [facility] [address] [id number], [place] [address]- 1798 Jan, [facility] [place] [facility] [address] [id number] [address]- 4147 Jan, [facility] [place] [facility] [address] [id number], [place] [address]- 1172 Jan, [facility] [place] [facility] [address] [id number] [place] [address]- 1377 Jan, [facility] [place] [facility] [address] [id number] [place] [address]- 8767 Jan, [facility] [place] [facility] [address] [id number] [place] [address]- 1253 Jan, [facility] [place] [facility] [address] [id number] [place] [address]- 6931 Jan, [facility] [place] [facility] [address] [id number] [place] [address]- 6270 Jan, [facility] [place] [facility] [address] [id number] [place] [address]- 1144 Dec, [facility] [place] [facility] [address] [id number] [place] [address]- 9230 Dec, [facility] [place] [facility] [address] [id number] [place] [address]- 4129 Dec, [facility] [place] [facility] [address] [id number] [place] [address]- 8583 Dec, [facility] [place] [facility] [address] [id number] [place] [address]- 8455 Oct, [facility] [place] [facility] [address] [id number] [place] [address]- 0680 Oct, [facility] [place] [facility] [address] [id number] [place] [address]- 0348 Oct, [facility] [place] [facility] [address] [id number] [place] [address]- 2435 Oct, [facility] [place] [facility] [address] [id number] [place] [address]- 3129 Oct, [facility] [place] [facility] [address] [id number] [place] [address]- 5863 Oct, [facility] [place] [facility] [address] [id number] [place] [address]- 2332 Oct, [facility] [place] [facility] [address] [id number] [place] [address]- 1389 Oct, [facility] [place] [facility] [address] [id number] [place] [address]- 3940 Sep, [facility] [place] [facility] [address] [id number] [place] [address]- 9068 Sep, [facility] [place] [facility] [address] [id number] [place] [address]- 8392 Sep, [facility] [place] [facility] [address] [id number] [place] [address]- 5154 Sep, [facility] [place] [facility] [address] [id number] [place] [address]- 4535 Sep, [facility] [place] [facility] [address] [id number] [place] [address]- 6435 Sep, [facility] [place] [facility] [address] [id number] [place] [address]- 1331 Sep, [facility] [place] [facility] [address] [id number] [place] [address]- 6264 Sep, [facility] [place] [facility] [address] [id number] [place] [address]- 2914 Sep, [facility] [place] [facility] [address] [id number], [place] [address]- 0394 Sep, [facility] [place] [facility] [address] [id number], [place] [address]- 6799 August, [facility] [place] [facility] [address] [id number] [place] [address]- 8206 August, [facility] [place] [facility] [address] [id number] [place] [address]- 3861 August, [facility] [place] [facility] [address] [id number] [place] [address]- 2408 August, [facility] [place] [facility] [address] [id number] [place] [address]- 6590 August, [facility] [address] [id number] [place] [address]- 4592 August, [facility] [place] [facility] [address] [id number] [place] [address]- 7715 August, [facility] [place] [facility] [address] [id number] [place] [address]- 2021 August, [facility] [place] [facility] [address] [id number] [place] [address]- 6377 August, [facility] [place] [facility] [address] [id number] [place] [address]- 8492 August, [facility] [place] [facility] [address] [id number] [place] [address]- 1474 August, [facility] [address] [id number] [place] [address]- 7036 August, [facility] [place] [facility] [address] [id number] [place] [address]- 8060 Jul, [facility] [place] [facility] [address] [id number] [place] [address]- 2734 Jul, [facility] [place] [facility] [address] [id number] [place] [address]- 8669 Jul, [facility] [place] [facility] [address] [id number] [place] [address]- 0040 Jul, [facility] [place] [facility] [address] [id number] [place] [address]- 4034 Jul, [facility] [place] [facility] [address] [id number] [place] [address]- 2587 Jul, [facility] [place] [facility] [address] [id number] [place] [address]- 1457 Jun, [facility] [place] [facility] [address] [id number] [place] [address]- 2622 Jun, [facility] [place] [facility] [address] [id number] [place] [address]- 8046 May, [facility] [place] [facility] [address] [id number] [place] [address]- 2711 May, [facility] [place] [facility] [address] [id number] [place] [address]- 1407 Apr, [facility] [place] [facility] [address] [id number] [place] [address]- 1986 Apr, [facility] [place] [facility] [address] [id number] [place] [address]- 9373 Apr, [facility] [place] [facility] [address] [id number] [place] [address]- 1729 Apr, [facility] [place] [facility] [address] [id number] [place] [address]- 3927 Apr, [facility] [place] [facility] [address] [id number] [place] [address]- 5890 Apr, [facility] [place] [facility] [address] [id number] [place] [address]- 4438 Apr, [facility] [place] [facility] [address] [id number] [place] [address]- 4780 Apr, [facility] [place] [facility] [address] [id number], [place] [address]- 4479 Apr, [facility] [place] [facility] [address] [id number], [place] [address]- 4782 Apr, [facility] [place] [facility] [address] [id number] [place] [address]- 9812 Apr, [facility] [place] [facility] [address] [id number] [place] [address]- 1732 Apr, [facility] [place] [facility] [address] [id number], [place] [address]- 9557 Apr, [facility] [place] [facility] [address] [id number], [place] [address]- 7787 Mar, [facility] [place] [facility] [address] [id number] [place] [address]- 3430 Mar, [facility] [place] [facility] [address] [id number] [place] [address]- 9763 Mar, [facility] [place] [facility] [address] [id number] [place] [address]- 7934 Mar, [facility] [place] [facility] [address] [id number] [place] [address]- 9639 Feb, [facility] [place] [facility] [address] [id number] [place] [address]- 9246 Feb, [facility] [place] [facility] [address] [id number] [place] [address]- 5226 Feb, [facility] [place] [facility] [address] [facility] [id number] [place] [address]- 6946 Feb, [facility] [place] [facility] [address] [id number] [place] [address]- 9197 Jan, [facility] [place] [facility] [address] [facility] [id number] [place] [address]- 5595 14 Jan, 2013 [facility] [place] [facility] [address] [facility] [id number] [place] [address]- 5845 Jan, [facility] [place] [facility] [address] [id number], [place] [address]- 9027 Jan, [facility] [place] [facility] [address] [id number], [place] [address]- 0094 Jan, [facility] [place] [facility] [address] [id number], [place] [address]- 4272 Jan, [facility] [place] [facility] [address] [facility] [id number], [place] [address]- 3712 Jan, [facility] [place] [facility] [address] [facility] [id number], [place] [address]- 4790 09 Jan, 2013 [facility] [place] [facility] [address] [id number] [place] [address]- 2825 Jan, [facility] [address] [id number] [place] [address]- 0799 26 Dec, 2012 [facility] [place] [facility] [address] [id number] [place] [address]- 7596 16 Dec, 2012 [facility] [address] [id number] [place] [address]- 7736 16 Dec, 2012 [facility] [place] [facility] [address] [id number] [place] [address]- 6385 13 Dec, 2012 [facility] [address] [id number] [place] [address]- 3297 Nov, [facility] [place] [facility] [address] [id number] [place] [address]- 9115 Nov, [facility] [place] [facility] [address] [id number] [place] [address]- 4575 Nov, [facility] [address] [id number] [place] [address]- 3391 Nov, [facility] [place] [facility] [address] [id number] [place] [address]- 5445 Oct, [facility] [address] [id number] [place] [address]- 3883 Sep, [facility] [place] [facility] [address] [id number] [place] [address]- 5467 August, [facility] [place] [facility] [address] [id number] [place] [address]- 6669 August, [facility] [place] [facility] [address] [id number] [place] [address]- 7961 August, [facility] [place] [facility] [address] [id number] [place] [address]- 8516 August, [facility] [place] [facility] [address] [id number] [place] [address]- 0939 15 Aug, 2012 [facility] [address] [id number] [place] [address]- 4129 August, [facility] [address] [id number] [place] [address]- 7555 August, [facility] [address] [id number] [place] [address]- 5321 August, [facility] [address] [id number] [place] [address]- 1560 August, [facility] [address] [id number] [place] [address]- 0320 August, [facility] [address] [id number] [place] [address]- 8745 August, [facility] [address] [id number] [place] [address]- 0406 August, [facility] [address] [id number] [place] [address]- 2114 Jul, [facility] [address] [id number] [place] [address]- 7959 Jul, [facility] [address] [id number] [place] [address]- 9117 Jul, [facility] [address] [id number] [place] [address]- 1621 15 Jul, 2012 [facility] [place] [facility] [address] [id number], [place] [address]- 5590 Jul, [facility] [place] [facility] [address] [id number] [place] [address]- 9156 Jul, [facility] [place] [facility] [address] [id number] [place] [address]- 1587 04 Jul, 2012 [facility] [place] [facility] [address] [id number] [place] [address]- 3535 Jul, [facility] [place] [facility] [address] [id number] [place] [address]- 4866 Jul, [facility] [address] [id number] [place] [address]- 0176 Jul, [facility] [place] [facility] [address] [id number] [place] [address]- 2136 Jul, [facility] [address] [facility] [id number] [place] [address]- 3006 Jun, [facility] [address] [id number] [place] [address]- 0075 Jun, [facility] [address] [id number] [place] [address]- 4833 Jun, [facility] [address] [facility] [id number] [place] [address]- 2546 Jun, [facility] [address] [id number] [place] [address]- 8620 May, [facility] [address] [id number] [place] [address]- 1527 14 May, 2012 [facility] [address] [id number] [place] [address]- 1269 05 May, 2012 [facility] [address] [facility] [id number] [place] [address]- 0878 May, [facility] [place] [facility] [address] [facility] [id number] [place] [address]- 2546 May, [facility] [address] [id number] [place] [address]- 2546 May, [facility] [place] [facility] [address] [id number] [place] [address]- 2546 Apr, [facility] [place] [facility] [address] [id number] [place] [address]- 2546 Apr, [facility] [place] [facility] [address] [facility] [id number] [place] [address]- 2221 Apr, [facility] [place] [facility] [address] [id number] [place] [address]- 2674 Apr, [facility] [place] [facility] [address] [id number] [place] [address]- 7896 Mar, [facility] [place] [facility] [address] [id number] [place] 6404 Mar, [facility] [place] [facility] [address] [id number] [place] [address]- 7007 Mar, [facility] [place] [facility] [address] [id number] [place] [address]- 3929 Mar, [facility] [place] [facility] [address] [id number] [place] [address]- 2170 Mar, [facility] [place] [facility] [address] [id number] [place] [address]- 3798 Mar, [facility] [place] [facility] [address] [id number] [place] [address]- 9584 Mar, [facility] [place] [facility] [address] [id number] [place] [address]- 3412 Feb, [facility] [place] [facility] [address] [id number] [place] [address]- 4655 Feb, [facility] [place] [facility] [address] [id number] [place] [address]- 6608 Feb, [facility] [place] [facility] [address] [id number] [place] [address]- 3259 Feb, [facility] [place] [facility] [address] [id number] [place] [address]- 5989 Jan, [facility] [place] [facility] [address] [id number] [place] 9706 Jan, [facility] [place] [facility] [address] [id number] [place] [address]- 0265 Jan, [facility] [place] [facility] [address] [id number] [place] [address]- 9928 Jan, [facility] [address] [id number] [place] [address]- 3703 Jan, [facility] [place] [facility] [address] [id number] [place] [address]- 4984 Jan, [facility] [place] [facility] [address] [id number] [place] [address]- 9450 Dec, [facility] [place] [facility] [address] [id number] [place] [address]- 7074 Dec, [facility] [place] [facility] [address] [id number] [place] [address]- 3740 Nov, [facility] [place] [facility] [address] [id number] [place] [address]- 0851 Sep, [facility] [address] [id number] [place] [address]- 0786 August, [facility] [place] [facility] [address] [id number] [place] [address]- 8555 August, [facility] [place] [facility] [address] [id number] [place] [address]- 6967 August, [facility] [place] [facility] [address] [id number] [place] [address] August, [facility] [place] [facility] [address] [id number] [place] [address] August, [facility] [place] [facility] [address] [id number] [place] [address] Jun, [facility] [place] [facility] [address] [id number] [place] [address] Jun, [facility] [place] [facility] [address] [id number] [place] [address] Apr, [facility] [place] [facility] [address] [id number] [place] [address] Apr, [facility] [place] [facility] [address] [id number] [place] [address] 23 Mar, 2011 [facility] [place] [facility] [address] [id number] [place] [address] 22 Feb, 2011 [facility] [place] [facility] [address] [id number] [place] [address] 14 Feb, 2011 [facility] [place] [facility] [address] [id number] [place] [address] 14 Feb, 2011 [facility] [place] [facility] [address] [id number] [place] [address] 17 Jan, 2011 [facility] [place] [facility] [address] [id number] [place] [address] 15 Jan, 2011 [facility] [place] [facility] [address] [id number] [place] [address] 15 Jan, 2011 [facility] [place] [facility] [address] [id number] [place] [address] 14 Jan, 2011 [facility] [place] [facility] [address] [id number] [place] [address] 15 May, 2010 [facility] [place] [facility] [address] [id number] [place] [address] Mar, [facility] [place] [facility] [address] [id number] [place] [address] Oct, [facility] [place] [facility] [address] [id number] [place] [address] Sep, [facility] [place] [facility] [address] [id number] [place] [address] Mar, [facility] [place] [facility] [address] [id number] [place] [address] Jan, [facility] [place] [facility] [address] [id number] [place] [address] Jan, [facility] [place] [facility] [address] [id number] [place] [address] May, IMMUNIZATIONS No Known Immunizations SOCIAL HISTORY Never Assessed REASON FOR VISIT 8 wk f/u PLAN OF CARE Activity Details Follow Up prn Reason: VITAL SIGNS MEDICATIONS Unknown Medications RESULTS No Results PROCEDURES No Known procedures INSTRUCTIONS MEDICATIONS ADMINISTERED No Known Medications MEDICAL (GENERAL) HISTORY Type Description Date Medical History hypertension Medical History Colposcopy with loop electrode excision of the cervix was performed 06/2012, mild squamous atypia (no definite dyplasia). Performed at [facility] Dr. Joy. Medical History Acute suppurative [...]
--- OUTSIDE RECORDS SUMMARY | 2018-06-10 04:48 | XMS REPORT ---
Author Author BETI STAUFFER [facility] Address [address] [place] [address] Care Team Providers Care Sap Project Manager Name Role Phone BETI STAUFFER Unavailable PROBLEMS Type Condition ICD9-CM Code UGO15-CJ Code Onset Dates Condition Status SNOMED Code Problem Hematuria, unspecified type R31.9 Active 82716195 Problem Anxiety F41.9 Active 99136510 Problem Abnormal renal ultrasound R93.429 Active 64817863104658344 Problem Abnormal glucose R73.09 Active 268803900 Problem 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 Active 134318740 Problem Hypokalemia E87.6 Active 29756375 Problem Neck pain M54.2 Active 82307102 Problem Neuroforaminal stenosis of spine M99.89 Active 126022415489 Problem Mixed hyperlipidemia E78.2 Active 50954460 Problem Essential hypertension I10 Active 82182194 ALLERGIES No Information ENCOUNTERS Encounter Location Date Diagnosis [place] [address] [address] 08 Feb, 2018 [place] [address] 65779- [address]50 13 Dec, 2017 Lateral epicondylitis, right elbow M77.11 [place] [address] 32369- 5729 11 Dec, 2017 Allergic rhinitis due to pollen, unspecified seasonality J30.1 and Allergic conjunctivitis of both eyes H10.13 [place] [address] 24441- 4540 10 Dec, 2017 Neuroforaminal stenosis of spine M99.89 [place] [address] [place] [id number] [place] [address] 01252- 4069 06 Dec, 2017 Mixed hyperlipidemia E78.2 [place] [address] [place] [id number] [place] [address] 03494- 0230 Dec, Abnormal glucose R73.09 ; Abnormal renal ultrasound R93.429 ; Dysuria R30.0 ; Cystitis without hematuria N30.90 ; Hypokalemia E87.6 ; Mixed hyperlipidemia E78.2 and Hematuria, unspecified type R31.9 [place] [address] [place] [id number] [place] [address] 75838- 9434 Nov, Hypokalemia E87.6 ; Mixed hyperlipidemia E78.2 and Hematuria , unspecified type R31.9 [place] [address] [place] [id number] [place] [address] 34480- 9188 Nov, [place] [address] 27925- 8579 Nov, Hypokalemia E87.6 [place] [address] 19394- 0880 Nov, [place] [address] [place] [id number] [place] [address] 54773- 5606 Nov, Abnormal renal ultrasound R93.429 [place] [address] 92506- 5845 Nov, Abnormal renal ultrasound R93.429 [place] [address] [place] [id number] [place] [address] 03976- 8169 Nov, Hematuria, unspecified type R31.9 and Neuroforaminal stenosis of spine M99.89 [place] [address] [place] [id number] [place] [address] 51538- 8774 Nov, Dysuria R30.0 [place] [address] 49713- 2284 Oct, Lateral epicondylitis, right elbow M77.11 [place] [address] [place] [id number] [place] [address] 86554- 1678 Oct, Neuroforaminal stenosis of spine M99.89 ; Visit for TB skin test Z11.1 and Essential hypertension I10 [place] [address] [place] [id number] [place] [address] 34297- 9347 16 Oct, 2017 [place] [address] [place] [id number] [place] [address] 21871- 0966 Oct, Neuroforaminal stenosis of spine M99.89 [place] [address] 56411- 8304 10 Oct, 2017 Visit for TB skin test Z11.1 [place] [address] [place] [id number] [place] [address] 50649- 7974 05 Oct, 2017 Cystitis without hematuria N30.90 [place] [address] [place] [id number] [place] [address] 77904- 2853 28 Sep, 2017 Screening breast examination Z12.39 [place] [address] 47183- 2708 26 Sep, 2017 Dysuria R30.0 and Cystitis without hematuria N30.90 [place] [address] [place] [id number] [place] [address] 25249- 3651 14 Sep, 2017 Essential hypertension I10 and Neuroforaminal stenosis of spine M99.89 [place] [address] [place] [id number] [place] [address] 45158- 3019 Sep, Abnormal glucose R73.09 [place] [address] 24942- 1002 August, Lateral epicondylitis, right elbow M77.11 [place] [address] [place] [id number] [place] [address] 91466- 0923 August, Screen for STD (sexually transmitted disease) Z11.3 [place] [address] [place] [id number] [place] [address] 18549- 8607 August, Neuroforaminal stenosis of spine M99.89 ; Mixed hyperlipidemia E78.2 ; Elevated fasting glucose R73.01 ; Screening mammogram, encounter for Z12.31 and Encounter for well woman exam without gynecological exam Z00.00 [facility] [address] [place] [id number] [place] [address] 06781- 9612 August, Neuroforaminal stenosis of spine M99.89 [facility] [address] [place] [id number] [place] [address] 91690- 0523 August, Essential hypertension I10 ; Hypokalemia E87.6 and Mixed hyperlipidemia E78.2 [place] [address] 28095- 6853 Jul, [place] [address] [place] [id number] [place] [address] 14156- 8765 Jul, Neuroforaminal stenosis of spine M99.89 [place] [address] [place] [id number] [place] [address] 38134- 6221 Jul, Lateral epicondylitis, right elbow M77.11 [place] [address] 85814- 7675 Jul, [place] [address] [place] [id number] [place] [address] 66812- 1049 Jun, High ankle sprain of right lower extremity, initial encounter S93.431A [place] [address] [place] [id number] [place] [address] 35084- 8052 Jun, Essential hypertension I10 [place] [address] [place] [id number] [place] [address] 50313- 1373 Jun, [facility] [address] [place] [id number] [place] [address] 32003- 8697 Jun, [place] [address] [place] [id number] [place] [address] 90476- 0294 Jun, Neuroforaminal stenosis of spine M99.89 [facility] [address] [place] [id number] [place] [address] 98984- 6878 Jun, Pain of right upper extremity M79.601 and Essential hypertension I10 [place] [address] [place] [id number] [place] [address] 04731- 1162 Jun, [place] [address] [place] [id number] [place] [address] 35390- 0865 Jun, Dysuria R30.0 ; Acute cystitis with hematuria N30.01 and Screen for STD (sexually transmitted disease) Z11.3 [place] [address] [place] [id number] [place] [address] 07129- 9304 May, 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 [place] [address] [place] [id number] [place] [address] 99041- 2667 May, Essential hypertension I10 [place] [id number] [place] [address] 53475- 0655 May, Neuroforaminal stenosis of spine M99.89 [place] [id number] [place] [address] 24815- 8212 Apr, Allergic reaction, initial encounter T78.40XA [place] [address] [place] [id number] [place] [address] 23689- 4250 Apr, Low back pain, unspecified back pain laterality, unspecified chronicity, with sciatica presence unspecified M54.5 ; Acute cystitis with hematuria N30.01 ; Neuroforaminal stenosis of spine M99.89 ; Bilateral acute serous otitis media, recurrence not specified H65.03 ; Mixed hyperlipidemia E78.2 ; Essential hypertension I10 ; Immunization counseling Z71.89 and Encounter for immunization Z23 [place] [address] [place] [id number] [place] [address] 38435- 0921 Apr, Neck pain M54.2 [place] [id number] [place] [address] 59724- 2379 Mar, Neuroforaminal stenosis of spine M99.89 [place] [address] [place] [id number] [place] [address] 76941- 4217 Mar, Pharyngitis due to other organism J02.8 [place] [address] [place] [id number] [place] [address] 62013- 3483 Feb, Neuroforaminal stenosis of spine M99.89 [facility] [address] [place] [id number] [place] [address] 59505- 8766 Feb, UTI (urinary tract infection) N39.0 [facility] [address] [place] [id number] [place] [address] 93830- 0880 Feb, Recent urinary tract infection Z87.440 ; Neuroforaminal stenosis of spine M99.89 ; Neck pain M54.2 ; 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 and Recurrent UTI N39.0 [facility] [address] 97536- 3881 Feb, [facility] [address] [place] [id number] [place] [address] 43476- 5979 Jan, Neuroforaminal stenosis of spine M99.89 [facility] [address] 67281- 0549 Dec, Neuroforaminal stenosis of spine M99.89 [facility] [address] [place] [id number] [place] [address] 38375- 8204 Dec, Acute seasonal allergic rhinitis due to pollen J30.1 [place] [address] [place] [id number] [place] [address] 78648- 1600 Dec, [facility] [address] 22883- 0637 Dec, Acute seasonal allergic rhinitis, unspecified trigger J30.2 ; Allergic conjunctivitis of both eyes H10.13 and Dysfunction of both eustachian tubes H69.83 [facility] [address] [place] [id number] [place] [address] 45583- 7645 Dec, [facility] [address] [place] [id number] [place] [address] 60514- 8309 06 Dec, 2016 Nevus D22.9 [facility] [address] 96707- 8290 Nov, 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 and Neuroforaminal stenosis of spine M99.89 [facility] [address] [place] [id number] [place] [address] 05799- 4800 Nov, Neuroforaminal stenosis of spine M99.89 ; Essential hypertension I10 ; Mixed hyperlipidemia E78.2 ; Hypokalemia E87.6 ; Neck pain M54.2 and Nevus D22.9 [facility] [address] [place] [id number] [place] [address] 23867- 2985 Oct, Neuroforaminal stenosis of spine M99.89 [facility] [address] [place] [id number] [place] [address] 37658- 3841 Sep, Neuroforaminal stenosis of spine M99.89 [facility] [address] [place] [id number] [place] [address] 30544- 6741 Sep, [facility] [address] [place] [id number] [place] [address] 13893- 8532 August, [facility] [address] [place] [id number] [place] [address] 69947- 6160 August, Neck pain M54.2 and Neuroforaminal stenosis of spine M99.89 [facility] [address] [place] [id number] [place] [address] 48795- 0540 August, Routine gynecological examination Z01.419 and Screening breast examination Z12.39 [facility] [address] [place] [address] 61254- 4296 Jul, [facility] [address] [place] [id number] [place] [address] 95506- 6005 Jul, [facility] [address] [place] [id number] [place] [address] 44584- 7263 Jul, Neuroforaminal stenosis of spine M99.89 [facility] [address] [place] [id number] [place] [address] 06379- 6787 Jul, [place] [id number] [place] [address] 27849- 3357 Jul, 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 [place] [address] [place] [id number] [place] [address] 30783- 5437 Jul, [place] [address] [place] [id number] [place] [address] 63233- 6208 Jul, [place] [address] [place] [id number] [place] [address] 74449- 6116 Jun, Neuroforaminal stenosis of spine M99.89 [place] [address] [place] [id number] [place] [address] 89275- 1829 Jun, Uterine leiomyoma, unspecified location D25.9 and Allergic reaction caused by a drug, initial encounter T78.40XA [place] [address] [place] [id number] [place] [address] 98970- 9199 Jun, [place] [address] [place] [id number] [place] [address] 75587- 7570 May, UTI symptoms R39.9 and Pain of right sacroiliac joint M53.3 [place] [address] [place] [id number] [place] [address] 01479- 9789 May, Neuroforaminal stenosis of spine M99.89 [place] [address] [place] [id number] [place] [address] 56927- 9236 May, [place] [address] [place] [id number] [place] [address] 34078- 5772 May, Acute mucoid otitis media of left ear H65.112 and Acute non- recurrent maxillary sinusitis J01.00 [place] [address] [place] [id number] [place] [address] 64623- 8677 May, Acute bacterial conjunctivitis of both eyes H10.33 ; Left arm pain M79.602 and Hypokalemia E87.6 [place] [address] [place] [address] [place] [address]- 6925 Apr, [place] [address] [place] [id number] [place] [address] 28246- 2656 Apr, Neuroforaminal stenosis of spine M99.89 ; Neck pain M54.2 ; 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 ; Mixed hyperlipidemia E78.2 ; Essential hypertension I10 and Hypokalemia E87.6 [place] [address] 83051- 7617 Mar, Oral candidiasis B37.0 ; Neuroforaminal stenosis of spine M99.89 ; Neck pain M54.2 and 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 [place] [address] [place] [id number] [place] [address] 39992- 6870 Feb, [place] [address] [place] [id number] [place] [address] 99095- 8841 Feb, [place] [address] [place] [id number] [place] [address] 41726- 1948 Feb, UTI (urinary tract infection) N39.0 [place] [address] [place] [id number] [place] [address] 40813- 2287 Feb, Dysuria R30.0 [place] [address] [place] [id number] [place] [address] 02889- 3107 Feb, Dysuria R30.0 [place] [address] [place] [id number] [place] [address] 19249- 5552 Feb, Neuroforaminal stenosis of spine M99.89 ; Neck pain M54.2 ; Essential hypertension I10 ; 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 ; Dysuria R30.0 ; Abnormal MRI, shoulder R93.8 and Acute cystitis without hematuria N30.00 [facility] [address] [place] [address] 16698- 0518 Jan, [facility] [address] [place] [id number] [place] [address] 04547- 7789 Jan, [facility] [address] [address]- 4081 Jan, [facility] [address] [place] [id number] [place] [address] 74867- 9905 Jan, Abnormal MRI R93.8 [facility] [address] [place] [id number] [place] [address] 93058- 7448 29 Dec, 2015 [facility] [address] [place] [id number] [place] [address] 58228 -3177 15 Dec, 2015 Acute pain of left shoulder M25.512 [facility] [address] [place] [id number] [place] [address] 01996- 2304 09 Dec, 2015 [facility] [address] [place] [id number] [place] [address] 26062- 2946 08 Dec, 2015 [facility] [address] [place] [id number] [place] [address] 21100- 4623 07 Dec, 2015 Acute pain of left shoulder M25.512 [facility] [address] [place] [id number] [place] [address] 99454- 6338 Nov, [facility] [address] [place] [id number] [place] [address] 15073- 0295 16 Nov, 2015 Neuroforaminal stenosis of spine M99.89 ; Neck pain M54.2 ; Abnormal mammogram R92.8 ; Essential hypertension I10 and 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 [facility] [address] [place] [id number] [place] [address] 98571- 2057 Nov, [facility] [address] [place] [id number] [place] [address] 18731- 9050 Oct, Acute stress disorder F43.0 [facility] [address] [place] [id number] [place] [address] 58474- 0690 Oct, [facility] [address] [place] [id number] [place] [address] 20887- 9536 Oct, [facility] [address] [address]- 6888 Oct, [facility] [address] [place] [id number] [place] [address] 64921- 2643 Sep, [facility] [address] [place] [address] 12506- 4071 August, [facility] [address] [place] [id number] [place] [address] 70887- 2108 Jul, Neuroforaminal stenosis of spine M99.89 ; Neck pain M54.2 ; Abnormal mammogram R92.8 and Essential hypertension I10 [facility] [address] [place] [id number] [place] [address] 76991- 5252 Jul, [facility] [address] [place] [id number] [place] [address] 94057- 7387 Jul, [facility] [address] [place] [id number] [place] [address] 28307- 3471 Jul, Abnormal mammogram R92.8 [facility] [address] [place] [address] 12242- 1513 Jul, [facility] [address] [place] [id number] [place] [address] 64380- 5915 Jul, UTI (urinary tract infection) N39.0 [facility] [address] [place] [address] 54318- 6772 Jul, Dysuria R30.0 [facility] [address] [place] [address] 36279- 3149 Jun, [facility] [address] [place] [id number] [place] [address] 45716- 3127 Jun, [facility] [address] [place] [id number] [place] [address] 62808- 8552 Jun, Hypokalemia E87.6 and Hematuria R31.9 [facility] [address] [place] [id number] [place] [address] 53882- 6274 Jun, Hypokalemia E87.6 [place] [address] [place] [id number] [place] [address] 92414- 6615 Jun, [place] [address] [place] [id number] [place] [address] 54210- 9366 Jun, Hypokalemia E87.6 [place] [address] [place] [id number] [place] [address] 99228- 6948 Jun, Hypokalemia E87.6 [place] [address] [place] [id number] [place] [address] 83427- 7088 15 Jun, 2015 Neuroforaminal stenosis of spine M99.89 ; Hypokalemia E87.6 ; Neck pain M54.2 ; Essential hypertension I10 ; Mixed hyperlipidemia E78.2 and Screening breast examination Z12.39 [place] [address] [place] [id number] [place] [address] 17008- 7728 Jun, Dysuria R30.0 ; UTI (urinary tract infection) N39.0 and Hematuria R31.9 [place] [address] [place] [id number] [place] [address] 54369- 1231 May, [place] [address] [place] [id number] [place] [address] 10476- 0187 May, High risk sexual behavior Z72.51 ; Hypokalemia E87.6 ; Neuroforaminal stenosis of spine M99.89 ; Neck pain M54.2 ; Essential hypertension I10 ; Mixed hyperlipidemia E78.2 ; STD exposure Z20.2 and Concern about STD in female without diagnosis Z71.1 [place] [address] [place] [id number] [place] [address] 72711- 1695 16 May, 2015 Neuroforaminal stenosis of spine M99.89 ; Neck pain M54.2 ; Hypokalemia E87.6 ; Essential hypertension I10 and Mixed hyperlipidemia E78.2 [place] [address] [place] [id number] [place] [address] 27393- 7530 May, [facility] [id number] [place] [address] 70386 -3124 08 May, 2015 High risk sexual behavior Z72.51 ; STD exposure Z20.2 and Concern about STD in female without diagnosis Z71.1 [facility] [address] [place] [address] 79157- 2372 05 May, 2015 [facility] [address] 73206- 6248 Apr, Neuroforaminal stenosis of spine M99.89 ; Mixed hyperlipidemia E78.2 ; Essential hypertension I10 and Hypokalemia E87.6 [place] [address] [place] [id number] [place] [address] 98364- 4923 Mar, [facility] [address] [place] [id number] [place] [address] 69782- 2564 Mar, Hypokalemia E87.6 [place] [address] [place] [id number] [place] [address] 60314- 0246 Mar, Neuroforaminal stenosis of spine M99.89 ; Mixed hyperlipidemia E78.2 ; Neck pain M54.2 ; Essential hypertension I10 ; Abnormal fasting glucose R73.09 ; Hypokalemia E87.6 and Constipation K59.00 [place] [address] [place] [id number] [place] [address] 07269- 5717 Feb, Neuroforaminal stenosis of spine M99.89 ; Mixed hyperlipidemia E78.2 ; Neck pain M54.2 ; Essential hypertension I10 ; Abnormal fasting glucose R73.09 ; Hypokalemia E87.6 and Constipation K59.00 [place] [address] [place] [id number] [place] [address] 18776- 9533 Feb, Elevated fasting blood sugar R73.01 [place] [id number] [place] [address] 31845- 2108 Feb, Elevated fasting blood sugar R73.01 [place] [address] [place] [id number] [place] [address] 29542- 1306 Feb, Hair loss L65.9 [place] [address] [place] [id number] [place] [address] 51474- 9778 Feb, Sinusitis J32.9 ; Essential hypertension I10 and Hair loss L65.9 [place] [address] [place] [id number] [place] [address] 37953- 5182 Jan, [place] [address] 11917- 4366 Jan, Essential hypertension I10 ; Neuroforaminal stenosis of spine M99.89 ; Neck pain M54.2 ; Mixed hyperlipidemia E78.2 and Anxiety F41.9 [place] [address] [place] [id number] [place] [address] 02185- 0689 Jan, [place] [address] 71330- 6878 Jan, Mixed hyperlipidemia E78.2 ; Essential (primary) hypertension I10 ; Strain of muscle, fascia and tendon at neck level, subsequent encounter S16.1XXD and Tension-type headache, unspecified, not intractable G44.209 [place] [address] [place] [id number] [place] [address] 62951- 1099 Dec, Lumbar back pain 724.2 and Neuroforaminal stenosis of spine 724.00 [place] [address] [place] [id number] [place] [address] 25942- 0532 Nov, [place] [address] 02029- 3405 Nov, Lumbar back pain 724.2 and Neuroforaminal stenosis of spine 724.00 [place] [address] 59457- 6621 Nov, Edema 782.3 ; Lumbar back pain 724.2 ; Essential hypertension, benign 401.1 ; Hyperlipemia 272.4 ; Neuroforaminal stenosis of spine 724.00 and Post-concussion headache 339.20 [place] [id number] [address] Nov, [facility] [id number] [place] [address] 37478- [address] Nov, [facility] [id number] [place] [address] 15256- 0824 Oct, Essential hypertension, benign 401.1 [facility] [id number] [place] [address]1331- 1399 Oct, Edema 782.3 ; Lumbar back pain 724.2 ; Essential hypertension, benign 401.1 ; Hyperlipemia 272.4 ; Neuroforaminal stenosis of spine 724.00 and Post-concussion headache 339.20 [facility] [id number] [place] [address] 28427- 9736 Oct, [facility] [id number] [place] [address] 31657- 1863 Oct, Edema 782.3 [facility] [id number] [place] [address] 49694- 7109 Oct, Lumbar back pain 724.2 [facility] [id number] [place] [address] 89184- 8571 Oct, Cervicalgia 723.1 ; Lumbar back pain 724.2 and High risk medication use V58.69 [facility] [id number] [place] [address] 75427- [address]99 Sep, [facility] [id number] [place] [address] 39317- 6984 Sep, Lumbar strain 847.2 [facility] [id number] [place] [address] 86771- 3055 August, Edema 782.3 and Eustachian tube dysfunction 381.81 [facility] [id number], [place] [address] August, [facility] [id number] [address] August, Eustachian tube dysfunction 381.81 [facility] [id number] [place] [address], [place] [address]- [address] Jul, Otalgia 388.70 and Otitis media 382.9 [facility] [id number] [address] Jul, [facility] [address] [id number] [place] [address] Jul, [facility] [id number] [place] [address], [place] [address] Jul, [facility] [address] [id number] [address] Jul, [facility] [id number] [place] [address]- 3876 Jul, [facility] [id number], [place] [address] Jun, [facility] [id number], [place] [address]- 0720 Jun, [facility] [id number], [place] [address]- 9678 Jun, [facility] [address], [place] [address]- 7552 May, [facility] [address], [place] [address]- 4821 May, [facility] [address] 2607 May, [facility] [address] 2166 May, [facility] [id number] [address] May, [facility] [place] [facility] [address] [id number] [place] [address]- 6959 May, [facility] [place] [facility] [address] [id number] [place] [address]- 4159 May, [facility] [place] [facility] [address] [id number] [place] [address]- 5811 May, [facility] [place] [facility] [address] [id number] [place] [address]- 6279 May, [facility] [place] [facility] [address] [id number] [place] [address]- 8447 May, [facility] [place] [facility] [address] [id number] [place] [address]- 8480 Apr, [facility] [place] [facility] [address] [id number] [place] [address]- 1939 Apr, [facility] [place] [facility] [address] [id number] [place] [address]- 4047 Apr, [facility] [place] [facility] [address] [id number] [place] [address]- 8306 Apr, [facility] [place] [facility] [address] [id number] [place] [address]- 4778 Apr, [facility] [place] [facility] [address] [id number] [place] [address]- 5936 Apr, [facility] [place] [facility] [address] [id number] [place] [address]- 6632 Apr, [facility] [place] [facility] [address] [id number] [place] [address]- 0313 Apr, [facility] [place] [facility] [address] [id number] [place] [address]- 8288 Apr, [facility] [place] [facility] [address] [id number] [place] [address]- 7012 Apr, [facility] [place] [facility] [address] [id number], [place] [address]- 1353 Apr, [facility] [place] [facility] [address] [id number] [place] [address]- 1932 Apr, [facility] [place] [facility] [address] [id number] [place] [address]- 9853 Apr, [facility] [place] [facility] [address] [facility] [id number] [place] [address]- 4517 Apr, [facility] [place] [facility] [address] [id number] [place] [address]- 8328 Apr, [facility] [place] [facility] [address] [facility] [id number] [place] [address]- 5227 Mar, [facility] [place] [facility] [address] [facility] [id number] [place] [address]- 1648 Mar, [facility] [place] [facility] [address] [facility] [id number], [place] [address]- 4634 Mar, [facility] [place] [facility] [address] [facility] [id number] [place] [address]- 2880 Mar, [facility] [place] [facility] [address] [facility] [id number] [place] [address]- 5379 Feb, [facility] [place] [facility] [address] [facility] [id number], [place] [address]- 5037 Feb, [facility] [place] [facility] [address] [facility] [id number], [place] [address]- 1682 Feb, [facility] [place] [facility] [address] [facility] [id number], [place] [address]- 7147 Feb, [facility] [place] [facility] [address] [id number], [place] [address]- 5107 Jan, [facility] [place] [facility] [address] [facility] [id number], [place] [address]- 1896 Jan, [facility] [place] [facility] [address] [facility] [id number], [place] [address]- 7136 Jan, [facility] [place] [facility] [address] [id number] [place] [address]- 5299 Jan, [facility] [place] [facility] [address] [id number] [place] [address]- 9730 Jan, [facility] [place] [facility] [address] [id number] [place] [address]- 8691 Jan, [facility] [place] [facility] [address] [id number] [place] [address]- 4325 Jan, [facility] [place] [facility] [address] [id number] [place] [address]- 9481 Jan, [facility] [place] [facility] [address] [id number] [place] [address]- 6382 Dec, [facility] [place] [facility] [address] [id number] [place] [address]- 7606 Dec, [facility] [place] [facility] [address] [id number] [place] [address]- 5638 Dec, [facility] [place] [facility] [address] [id number] [place] [address]- 0932 Dec, [facility] [place] [facility] [address] [id number] [place] [address]- 8318 Oct, [facility] [place] [facility] [address] [id number] [place] [address]- 8057 Oct, [facility] [place] [facility] [address] [id number] [place] [address]- 0397 Oct, [facility] [place] [facility] [address] [id number] [place] [address]- 5211 Oct, [facility] [place] [facility] [address] [id number] [place] [address]- 8426 Oct, [facility] [place] [facility] [address] [id number] [place] [address]- 2048 Oct, [facility] [place] [facility] [address] [id number] [place] [address]- 9169 Oct, [facility] [place] [facility] [address] [id number] [place] [address]- 5364 Oct, [facility] [place] [facility] [address] [id number] [place] [address]- 4994 Sep, [facility] [place] [facility] [address] [id number] [place] [address]- 0104 Sep, [facility] [place] [facility] [address] [id number] [place] [address]- 4421 Sep, [facility] [place] [facility] [address] [id number] [place] [address]- 0494 Sep, [facility] [place] [facility] [address] [id number] [place] [address]- 3415 Sep, [facility] [place] [facility] [address] [id number] [place] [address]- 6325 Sep, [facility] [place] [facility] [address] [id number] [place] [address]- 7852 Sep, [facility] [place] [facility] [address] [id number] [place] [address]- 4970 Sep, [facility] [place] [facility] [address] [id number] [place] [address]- 2678 Sep, [facility] [place] [facility] [address] [id number] [place] [address]- 2367 Sep, [facility] [place] [facility] [address] [id number], [place] [address]- 1662 August, [facility] [place] [facility] [address] [id number] [place] [address]- 1622 August, [facility] [place] [facility] [address] [id number] [place] [address]- 6259 August, [facility] [place] [facility] [address] [id number] [place] [address]- 1252 August, [facility] [place] [facility] [address] [id number] [place] [address]- 1953 August, [facility] [place] [facility] [address] [id number] [place] [address]- 2850 August, [facility] [place] [facility] [address] [id number] [place] [address]- 2536 August, [facility] [place] [facility] [address] [id number] [place] [address]- 0911 August, [facility] [place] [facility] [address] [id number] [place] [address]- 4880 August, [facility] [place] [facility] [address] [id number] [place] [address]- 8725 August, [facility] [place] [facility] [address] [id number] [place] [address]- 2855 August, [facility] [place] [facility] [address] [id number] [place] [address]- 7680 August, [facility] [place] [facility] [address] [id number] [place] [address]- 0527 Jul, [facility] [place] [facility] [address] [id number] [place] [address]- 4095 Jul, [facility] [place] [facility] [address] [id number] [place] [address]- 7295 Jul, [facility] [place] [facility] [address] [id number] [place] [address]- 4678 Jul, [facility] [place] [facility] [address] [id number] [place] [address]- 3584 Jul, [facility] [place] [facility] [address] [id number] [place] [address]- 5582 Jul, [facility] [place] [facility] [address] [id number] [place] [address]- 4128 Jun, [facility] [place] [facility] [address] [id number] [place] [address]- 6246 Jun, [facility] [place] [facility] [address] [id number] [place] [address]- 4706 May, [facility] [place] [facility] [address] [id number] [place] [address]- 5114 May, [facility] [place] [facility] [address] [id number] [place] [address]- 8716 Apr, [facility] [place] [facility] [address] [id number] [place] [address]- 3311 Apr, [facility] [place] [facility] [address] [id number] [place] [address]- 0610 Apr, [facility] [place] [facility] [address] [id number] [place] [address]- 1741 Apr, [facility] [place] [facility] [address] [id number] [place] [address]- 3345 Apr, [facility] [place] [facility] [address] [id number] [place] [address]- 4937 Apr, [facility] [place] [facility] [address] [id number] [place] [address]- 9147 Apr, [facility] [place] [facility] [address] [id number] [place] [address]- 4509 Apr, [facility] [place] [facility] [address] [id number] [place] [address]- 4656 Apr, [facility] [place] [facility] [address] [id number], [place] [address]- 5015 Apr, [facility] [place] [facility] [address] [id number] [place] [address]- 1022 Apr, [facility] [place] [facility] [address] [id number] [place] [address]- 3882 Apr, [facility] [place] [facility] [address] [id number] [place] [address]- 4924 Apr, [facility] [place] [facility] [address] [id number], [place] [address]- 0573 Mar, [facility] [place] [facility] [address] [id number] [place] [address]- 0451 Mar, [facility] [place] [facility] [address] [id number], [place] [address]- 1857 Mar, [facility] [place] [facility] [address] [id number] [place] [address]- 1585 Mar, [facility] [place] [facility] [address] [id number] [place] [address]- 3124 Feb, [facility] [place] [facility] [address] [id number] [place] [address]- 4536 Feb, [facility] [place] [facility] [address] [id number] [place] [address]- 3544 Feb, [facility] [place] [facility] [address] [id number], [place] [address]- 6544 Feb, [facility] [place] [facility] [address] [id number], [place] [address]- 0376 Jan, [facility] [place] [facility] [address] [id number], [place] [address]- 4960 14 Jan, 2013 [facility] [place] [facility] [address] [id number], [place] [address]- 8760 Jan, [facility] [place] [facility] [address] [id number], [place] [address]- 7566 Jan, [facility] [place] [facility] [address] [id number], [place] [address]- 8474 Jan, [facility] [place] [facility] [address] [id number], [place] [address]- 2690 Jan, [facility] [place] [facility] [address] [id number], [place] [address]- 8860 Jan, [facility] [place] [facility] [address] [id number], [place] [address]- 3749 Jan, [facility] [place] [facility] [address] [id number] [place] [address]- 2296 Jan, [facility] [address] [id number] [place] [address]- 9472 26 Dec, 2012 [facility] [place] [facility] [address] [id number] [place] [address]- 5776 16 Dec, 2012 [facility] [address] [id number] [place] [address]- 5186 16 Dec, 2012 [facility] [address] [id number] [place] [address]- 8443 13 Dec, 2012 [facility] [address] [id number] [place] [address]- 7027 Nov, [facility] [address] [id number] [place] [address]- 3795 Nov, [facility] [address] [id number] [place] [address]- 8288 Nov, [facility] [address] [id number] [place] [address]- 0107 Nov, [facility] [address] [id number] [place] [address]- 3846 Oct, [facility] [address] [id number] [place] [address]- 7944 Sep, [facility] [address] [id number] [place] [address]- 2303 August, [facility] [address] [id number] [place] [address]- 8276 August, [facility] [place] [facility] [address] [id number] [place] [address]- 9845 August, [facility] [place] [facility] [address] [id number] [place] [address]- 6776 August, [facility] [place] [facility] [address] [id number] [place] [address]- 6468 August, [facility] [address] [id number] [place] [address]- 9249 August, [facility] [address] [id number] [place] [address]- 5108 August, [facility] [address] [id number] [place] [address]- 0870 August, [facility] [address] [id number] [place] [address]- 0441 August, [facility] [address] [id number] [place] [address]- 9740 August, [facility] [address] [id number] [place] [address]- 8621 August, [facility] [address] [id number] [place] [address]- 6556 August, [facility] [address] [id number] [place] [address]- 6574 Jul, [facility] [address] [id number] [place] [address]- 8866 Jul, [facility] [address] [id number] [place] [address]- 1747 Jul, [facility] [address] [id number] [place] [address]- 2429 Jul, [facility] [place] [facility] [address] [id number], [place] [address]- 6109 Jul, [facility] [place] [facility] [address] [id number] [place] [address]- 0340 Jul, [facility] [place] [facility] [address] [id number] [place] [address]- 4524 Jul, [facility] [place] [facility] [address] [id number] [place] [address]- 6317 Jul, [facility] [place] [facility] [address] [id number] [place] [address] 2546 Jul, [facility] [address] [id number] [place] [address]- 3766 Jul, [facility] [place] [facility] [address] [facility] [id number] [place] [address]- 3506 Jul, [facility] [address] [facility] [id number] [place] [address]- 7766 Jun, [facility] [place] [facility] [address] [id number] [place] [address]- 4895 Jun, [facility] [address] [id number] [place] [address]- 7337 Jun, [facility] [place] [facility] [address] [facility] [id number] [place] [address]- 2546 Jun, [facility] [address] [id number] [place] [address]- 8269 May, [facility] [place] [facility] [address] [id number] [place] [address]- 4338 14 May, 2012 [facility] [place] [facility] [id number] [address]- 3646 05 May, 2012 [facility] [address] [facility] [id number] [place] [address]- 3786 May, [facility] [place] [facility] [id number] [address]- 2546 May, [facility] [place] [facility] [address] [facility] [id number] [place] [address]- 2546 May, [facility] [place] [facility] [address] [id number] [place] [address]- 2546 Apr, [facility] [place] [facility] [address] [facility] [id number] [place] [address]- 2546 Apr, [facility] [place] [facility] [address] [facility] [id number] [place] [address]- 7347 Apr, [facility] [place] [facility] [address] [id number] [place] [address]- 2876 Apr, [facility] [place] [facility] [address] [id number] [place] [address]- 0290 Mar, [facility] [place] [facility] [address] [id number] [place] 4629 Mar, [facility] [place] [facility] [address] [id number] [place] [address]- 0417 Mar, [facility] [place] [facility] [address] [id number] [place] [address]- 1464 Mar, [facility] [place] [facility] [address] [id number] [place] [address]- 3159 Mar, [facility] [place] [facility] [address] [id number] [place] [address]- 3379 Mar, [facility] [place] [facility] [address] [id number] [place] [address]- 8979 Mar, [facility] [place] [facility] [address] [id number] [place] [address]- 1697 Feb, [facility] [place] [facility] [address] [id number], [place] [address]- 8550 Feb, [facility] [place] [facility] [address] [id number], [place] [address]- 2587 Feb, [facility] [place] [facility] [address] [id number], [place] [address]- 9271 Feb, [facility] [place] [facility] [address] [id number] [place] [address]- 7334 Jan, [facility] [place] [facility] [address] [id number], [place] [address]- 4878 Jan, [facility] [place] [facility] [address] [id number], [place] [address]- 7928 Jan, [facility] [place] [facility] [address] [id number], [place] [address] Jan, [facility] [address] [id number] [place] [address] Jan, [facility] [place] [facility] [address] [id number] [place] [address] Jan, [facility] [place] [facility] [address] [id number] [place] [address] Dec, [facility] [place] [facility] [address] [id number] [place] [address] Dec, [facility] [place] [facility] [address] [id number] [place] [address] Nov, [facility] [place] [facility] [address] [id number] [place] [address] Sep, [facility] [id number] [address] August, [facility] [place] [facility] [address] [id number] [place] [address] August, [facility] [address] [id number] [place] [address] August, [facility] [place] [facility] [id number] [address] August, [facility] [place] [facility] [address] [id number] [place] [address] August, [facility] [place] [facility] [address] [id number], [place] [address] Jun, [facility] [place] [facility] [address] [id number] [place] [address] Jun, [facility] [place] [facility] [address] [facility] [id number] [place] [address] Apr, [facility] [place] [facility] [address] [id number] [place] [address] Apr, [facility] [place] [facility] [address] [id number] [place] [address] 23 Mar, 2011 [facility] [place] [facility] [address] [id number] [place] [address] [address] Feb, [facility] [place] [facility] [address] [id number] [place] [address] 14 Feb, 2011 [facility] [place] [facility] [address] [id number] [place] [address] 14 Feb, 2011 [facility] [place] [facility] [address] [id number] [place] [address] 17 Jan, 2011 [facility] [place] [facility] [address] [id number] [place] [address] [address] 15 Jan, 2011 [facility] [place] [facility] [address] [id number] [place] [address] 15 Jan, 2011 [facility] [place] [facility] [address] [id number] [place] [address] 14 Jan, 2011 [facility] [place] [facility] [address] [id number] [place] [address] 15 May, 2010 [facility] [place] [facility] [address] [id number] [place] [address] Mar, [facility] [place] [facility] [address] [id number] [place] [address] Oct, [facility] [place] [facility] [address] [id number] [place] [address] Sep, [facility] [place] [facility] [address] [id number] [place] [address] Mar, [facility] [place] [facility] [address] [id number] [place] [address] Jan, [facility] [place] [facility] [address] [id number] [place] [address] Jan, [facility] [place] [facility] [address] [id number] [place] [address] May, IMMUNIZATIONS No Known Immunizations SOCIAL HISTORY Never Assessed REASON FOR VISIT Labs for CT PLAN OF CARE VITAL SIGNS MEDICATIONS Unknown Medications RESULTS Name Result Date Reference Range [facility] 2017-11-28 Request Problem NTI Urine Tube ([place]) Bethany Mendez [id number] Default Request Problem Request Problem Sodium, Serum Potassium, Serum Chloride, Serum Carbon Dioxide, Total BUN Creatinine, Serum eGFR If NonAfricn Am eGFR If Africn Am BUN/Creatinine Ratio Glucose, Serum Calcium, Serum Bilirubin, Total AST (SGOT) ALT (SGPT) Alkaline Phosphatase, S Protein, Total, Serum Albumin, Serum Globulin, Total A/G Ratio Specimen Identification Status Please note GLUCOSE UREA NITROGEN (BUN) CREATININE eGFR NON-AFR. MAURITANIAN eGFR BUN/CREATININE RATIO SODIUM POTASSIUM CHLORIDE CARBON DIOXIDE CALCIUM PROTEIN, TOTAL ALBUMIN GLOBULIN ALBUMIN/GLOBULIN RATIO BILIRUBIN, TOTAL ALKALINE PHOSPHATASE AST ALT PROCEDURES Procedure Date Ordered Result Body Site COMPREHEN METABOLIC PANEL Nov 24, 2017 INSTRUCTIONS MEDICATIONS ADMINISTERED No Known Medications MEDICAL (GENERAL) HISTORY Type Description Date Medical History hypertension Medical History Colposcopy with loop electrode excision of the cervix was performed 06/2012, mild squamous atypia (no definite dyplasia). Performed at [facility] Dr. Joy. Medical History Acute [...]
--- OUTSIDE RECORDS SUMMARY | 2018-06-10 04:49 | XMS REPORT ---
Author Author KING BETI [facility] Address [address] [place] [address] Care Team Providers Care Clinic Clerk Name Role Phone BETI STAUFFER Unavailable PROBLEMS Type Condition ICD9-CM Code [id number] Code Onset Dates Condition Status SNOMED Code Problem Hematuria, unspecified type R31.9 Active 50897333 Problem Anxiety F41.9 Active 22029161 Problem Abnormal renal ultrasound R93.429 Active 12557637669088840 Problem Abnormal glucose R73.09 Active 859358384 Problem 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 Active 651744383 Problem Hypokalemia E87.6 Active 50289718 Problem Neck pain M54.2 Active 68001369 Problem Neuroforaminal stenosis of spine M99.89 Active 217276100917 Problem Mixed hyperlipidemia E78.2 Active 06409186 Problem Essential hypertension I10 Active 89564422 ALLERGIES Substance Reaction Event Type Date Status Fluarix Quadrivalent rash Drug Allergy Oct, Active Zostavax rash Drug Allergy Oct, Active Macrobid rash Drug Allergy Oct, Active Cipro hives Drug Allergy Oct, Active Bactrim hives Drug Allergy Oct, Active Baclofen Unknown Drug Allergy Oct, Active Amitriptyline HCl dizziness Drug Allergy Oct, Active Peanut Unknown Non Drug Allergy Oct, Active ENCOUNTERS Encounter Location Date Diagnosis [facility] [address] [facility] [id number] [address] Dec, [facility] [id number] [place] [address] 70977- 9553 11 Dec, 2017 Allergic rhinitis due to pollen, unspecified seasonality J30.1 and Allergic conjunctivitis of both eyes H10.13 [facility] [id number] [address] 10 Dec, 2017 Neuroforaminal stenosis of spine M99.89 [facility] [id number] [place] [address] 81195- 2008 Dec, Mixed hyperlipidemia E78.2 [place] [id number] [place] [address] 19747- 5435 Dec, Abnormal glucose R73.09 ; Abnormal renal ultrasound R93.429 ; Dysuria R30.0 ; Cystitis without hematuria N30.90 ; Hypokalemia E87.6 ; Mixed hyperlipidemia E78.2 and Hematuria, unspecified type R31.9 [place] [id number] [place] [address] 70049- 6231 Nov, Hypokalemia E87.6 ; Mixed hyperlipidemia E78.2 and Hematuria , unspecified type R31.9 [place] [id number] [place] [address] 41854- 0661 Nov, [place] [address] 78133- 7097 Nov, Hypokalemia E87.6 [place] [id number] [place] [address] 20043- 3882 Nov, [place] [id number] [place] [address] 53551- 7472 Nov, Abnormal renal ultrasound R93.429 [place] [id number] [place] [address] 09241- 1640 Nov, Abnormal renal ultrasound R93.429 [place] [id number] [place] [address] 93674- 1409 Nov, Hematuria, unspecified type R31.9 and Neuroforaminal stenosis of spine M99.89 [place] [id number] [place] [address] 86451- 1076 Nov, Dysuria R30.0 [facility] [id number] [place] [address] 99753- 2806 Oct, Lateral epicondylitis, right elbow M77.11 [place] [id number] [place] [address] 37796- 5360 Oct, Neuroforaminal stenosis of spine M99.89 ; Visit for TB skin test Z11.1 and Essential hypertension I10 [place] [id number] [place] [address] 03356- 5441 16 Oct, 2017 [place] [address] 17256- 2078 Oct, Neuroforaminal stenosis of spine M99.89 [place] [id number] [place] [address] 65360- 2934 Oct, Visit for TB skin test Z11.1 [place] [id number] [place] [address] 30105- 8868 05 Oct, 2017 Cystitis without hematuria N30.90 [place] [id number] [place] [address] 00936- 0739 Sep, Screening breast examination Z12.39 [place] [id number] [place] [address] 60394- 7512 Sep, Dysuria R30.0 and Cystitis without hematuria N30.90 [place] [id number] [place] [address] 86781- 2056 Sep, Essential hypertension I10 and Neuroforaminal stenosis of spine M99.89 [place] [id number] [place] [address] 68183- 0957 Sep, Abnormal glucose R73.09 [place] [id number] [place] [address] 79694- 7602 August, Lateral epicondylitis, right elbow M77.11 [place] [id number] [place] [address] 02748- 4849 August, Screen for STD (sexually transmitted disease) Z11.3 [place] [id number] [place] [address] 23261- 9094 August, Neuroforaminal stenosis of spine M99.89 ; Mixed hyperlipidemia E78.2 ; Elevated fasting glucose R73.01 ; Screening mammogram, encounter for Z12.31 and Encounter for well woman exam without gynecological exam Z00.00 [facility] [id number] [place] [address] 97597- 2547 August, Neuroforaminal stenosis of spine M99.89 [place] [address] 72641- 7411 August, Essential hypertension I10 ; Hypokalemia E87.6 and Mixed hyperlipidemia E78.2 [place] [address] 26320- 9709 Jul, [place] [id number] [place] [address] 28600- 1424 Jul, Neuroforaminal stenosis of spine M99.89 [place] [id number] [place] [address] 83703- 9065 Jul, Lateral epicondylitis, right elbow M77.11 [place] [address] 59398- 1671 Jul, [place] [id number] [place] [address] 26184- 2230 Jun, High ankle sprain of right lower extremity, initial encounter S93.431A [place] [id number] [place] [address] 48801- 5648 Jun, Essential hypertension I10 [facility] [id number] [place] [address] 00872- 7555 Jun, [place] [id number] [place] [address] 18388- 3911 Jun, [place] [id number] [place] [address] 05403- 1192 Jun, Neuroforaminal stenosis of spine M99.89 [place] [id number] [place] [address] 27926- 3122 Jun, Pain of right upper extremity M79.601 and Essential hypertension I10 [place] [id number] [place] [address] 37061- 5454 Jun, [place] [id number] [place] [address] 71178- 4947 Jun, Dysuria R30.0 ; Acute cystitis with hematuria N30.01 and Screen for STD (sexually transmitted disease) Z11.3 [place] [id number] [place] [address] 48172- 7292 May, 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 [place] [id number] [place] [address] 73145- 4084 May, Essential hypertension I10 [address] 80222- 1196 May, Neuroforaminal stenosis of spine M99.89 [place] [id number] [place] [address] 45455- 3994 Apr, Allergic reaction, initial encounter T78.40XA [place] [id number] [place] [address] 72837- 5867 Apr, Low back pain, unspecified back pain laterality, unspecified chronicity, with sciatica presence unspecified M54.5 ; Acute cystitis with hematuria N30.01 ; Neuroforaminal stenosis of spine M99.89 ; Bilateral acute serous otitis media, recurrence not specified H65.03 ; Mixed hyperlipidemia E78.2 ; Essential hypertension I10 ; Immunization counseling Z71.89 and Encounter for immunization Z23 [place] [id number] [place] [address] 99893- 3479 Apr, Neck pain M54.2 [place] [id number] [place] [address] 70822- 9347 Mar, Neuroforaminal stenosis of spine M99.89 [facility] [id number] [place] [address] 84956- 2980 Mar, Pharyngitis due to other organism J02.8 [facility] [id number] [place] [address] 97477- 7493 Feb, Neuroforaminal stenosis of spine M99.89 [facility] [id number] [place] [address] 01810- 5830 Feb, UTI (urinary tract infection) N39.0 [facility] [id number] [place] [address] 99062- 9975 Feb, Recent urinary tract infection Z87.440 ; Neuroforaminal stenosis of spine M99.89 ; Neck pain M54.2 ; 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 and Recurrent UTI N39.0 [facility] [id number] [place] [address] 69446- 5734 Feb, [facility] [id number] [place] [address] 02525- 8652 Jan, Neuroforaminal stenosis of spine M99.89 [place] [id number] [place] [address] 44082- 1756 Dec, Neuroforaminal stenosis of spine M99.89 [facility] [id number] [place] [address] 22683- 0016 Dec, Acute seasonal allergic rhinitis due to pollen J30.1 [facility] [id number] [place] [address] 79475- 4102 Dec, [facility] [id number] [place] [address] 44276- 7695 Dec, Acute seasonal allergic rhinitis, unspecified trigger J30.2 ; Allergic conjunctivitis of both eyes H10.13 and Dysfunction of both eustachian tubes H69.83 [facility] [id number] [place] [address] 43543- 3881 Dec, [place] [id number] [place] [address] 01669- 5205 Dec, Nevus D22.9 [facility] [id number] [place] [address] 43868- 1076 Nov, 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 and Neuroforaminal stenosis of spine M99.89 [place] [address] 73710- 2198 Nov, Neuroforaminal stenosis of spine M99.89 ; Essential hypertension I10 ; Mixed hyperlipidemia E78.2 ; Hypokalemia E87.6 ; Neck pain M54.2 and Nevus D22.9 [place] [id number] [place] [address] 95803- 1412 Oct, Neuroforaminal stenosis of spine M99.89 [place] [address] 38364- 2656 Sep, Neuroforaminal stenosis of spine M99.89 [place] [id number] [place] [address] 83922- 8579 Sep, [place] [id number] [place] [address] 30512- 7147 August, [place] [id number] [place] [address] 84509- 8903 August, Neck pain M54.2 and Neuroforaminal stenosis of spine M99.89 [place] [id number] [place] [address] 38507- 1050 August, Routine gynecological examination Z01.419 and Screening breast examination Z12.39 [place] [id number] [place] [address] 71062- 9971 Jul, [place] [id number] [place] [address] 66935- 2629 Jul, [facility] [address] 27087- 5928 Jul, Neuroforaminal stenosis of spine M99.89 [facility] [id number] [place] [address] 70263- 6936 Jul, [facility] [id number] [place] [address] 70455- 0715 Jul, 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 [facility] [id number] [place] [address] 30728- 4696 Jul, [facility] [id number] [place] [address] 70578- 4491 Jul, [facility] [id number] [place] [address] 86880- 5526 Jun, Neuroforaminal stenosis of spine M99.89 [facility] [id number] [place] [address] 95978- 5412 Jun, Uterine leiomyoma, unspecified location D25.9 and Allergic reaction caused by a drug, initial encounter T78.40XA [facility] [id number] [place] [address] 78442- 8389 Jun, [place] [id number] [place] [address] 17266- 2776 May, UTI symptoms R39.9 and Pain of right sacroiliac joint M53.3 [facility] [id number] [place] [address] 15495- 0741 May, Neuroforaminal stenosis of spine M99.89 [facility] [id number] [place] [address] 22610- 7375 May, [facility] [id number] [place] [address] 91511- 8232 May, Acute mucoid otitis media of left ear H65.112 and Acute non- recurrent maxillary sinusitis J01.00 [facility] [id number] [place] [address] 60090- 9143 May, Acute bacterial conjunctivitis of both eyes H10.33 ; Left arm pain M79.602 and Hypokalemia E87.6 [place] [id number] [place] [address] 46767- 6444 Apr, [place] [id number] [place] [address] 48420- 9377 Apr, Neuroforaminal stenosis of spine M99.89 ; Neck pain M54.2 ; 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 ; Mixed hyperlipidemia E78.2 ; Essential hypertension I10 and Hypokalemia E87.6 [place] [id number] [place] [address] 78481- 6696 Mar, Oral candidiasis B37.0 ; Neuroforaminal stenosis of spine M99.89 ; Neck pain M54.2 and 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 [place] [id number] [place] [address] 31578- 9900 Feb, [place] [id number] [place] [address] 82088- 5036 Feb, [place] [id number] [place] [address] 06150- 9051 Feb, UTI (urinary tract infection) N39.0 [place] [id number] [place] [address] 77989- 8472 Feb, Dysuria R30.0 [place] [id number] [place] [address] 81551- 8863 Feb, Dysuria R30.0 [place] [id number] [place] [address] 24206- 8910 Feb, Neuroforaminal stenosis of spine M99.89 ; Neck pain M54.2 ; Essential hypertension I10 ; 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 ; Dysuria R30.0 ; Abnormal MRI, shoulder R93.8 and Acute cystitis without hematuria N30.00 [place] [id number] [address]- 8217 Jan, [facility] [id number] [place] [address] 13666- 6429 Jan, [facility] [id number] [place] [address] 76451- 9701 Jan, [facility] [id number] [place] [address] 30800- 4388 Jan, Abnormal MRI R93.8 [facility] [id number] [place] [address] 43004- 8403 29 Dec, 2015 [facility] [id number] [place] [address] 40161 -8143 15 Dec, 2015 Acute pain of left shoulder M25.512 [facility] [id number] [place] [address] 04864- 7635 09 Dec, 2015 [facility] [id number] [place] [address] 34225- 9951 08 Dec, 2015 [facility] [id number] [place] [address] 00227- 7618 07 Dec, 2015 Acute pain of left shoulder M25.512 [facility] [id number] [place] [address] 92215- 6892 Nov, [facility] [id number] [place] [address] 74332- 7211 16 Nov, 2015 Neuroforaminal stenosis of spine M99.89 ; Neck pain M54.2 ; Abnormal mammogram R92.8 ; Essential hypertension I10 and 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 [facility] [id number] [place] [address] 94975- 3475 Nov, [facility] [id number] [place] [address] 00085- 1092 Oct, Acute stress disorder F43.0 [facility] [id number] [place] [address] 89766- 6235 Oct, [facility] [address] [facility] [id number] [address]- 3766 Oct, [facility] [id number] [address]- 3445 Oct, [facility] [id number] [address]- 0924 Sep, [facility] [id number] [place] [address] 63522- 6932 August, [facility] [id number] [place] [address] 77671- 8017 Jul, Neuroforaminal stenosis of spine M99.89 ; Neck pain M54.2 ; Abnormal mammogram R92.8 and Essential hypertension I10 [facility] [id number] [place] [address] 35827- 8598 Jul, [facility] [id number] [address]- 2304 Jul, [facility] [id number] [place] [address] 81092- 0842 Jul, Abnormal mammogram R92.8 [facility] [id number] [place] [address] 87384- 2741 Jul, [facility] [id number] [address]- 6757 Jul, UTI (urinary tract infection) N39.0 [facility] [id number] [address]- 4404 Jul, Dysuria R30.0 [facility] [id number] [address]- 9562 Jun, [facility] [id number] [address]- 6447 Jun, [facility] [id number] [address]- 3616 Jun, Hypokalemia E87.6 and Hematuria R31.9 [place] [id number] [place] [address] 65224- 6742 Jun, Hypokalemia E87.6 [place] [id number] [place] [address] 17285- 3678 Jun, [place] [id number] [place] [address] 88769- 9586 Jun, Hypokalemia E87.6 [place] [id number] [place] [address] 85920- 9010 Jun, Hypokalemia E87.6 [place] [id number] [place] [address] 29577- 5072 Jun, Neuroforaminal stenosis of spine M99.89 ; Hypokalemia E87.6 ; Neck pain M54.2 ; Essential hypertension I10 ; Mixed hyperlipidemia E78.2 and Screening breast examination Z12.39 [place] [id number] [place] [address] 46523- 5007 Jun, Dysuria R30.0 ; UTI (urinary tract infection) N39.0 and Hematuria R31.9 [place] [id number] [place] [address] 65574- 7520 May, [place] [id number] [place] [address] 03468- 9824 May, High risk sexual behavior Z72.51 ; Hypokalemia E87.6 ; Neuroforaminal stenosis of spine M99.89 ; Neck pain M54.2 ; Essential hypertension I10 ; Mixed hyperlipidemia E78.2 ; STD exposure Z20.2 and Concern about STD in female without diagnosis Z71.1 [place] [id number] [place] [address] 24083- 2109 16 May, 2015 Neuroforaminal stenosis of spine M99.89 ; Neck pain M54.2 ; Hypokalemia E87.6 ; Essential hypertension I10 and Mixed hyperlipidemia E78.2 [facility] [id number] [place] [address] 11947- 4060 May, [facility] [id number] [place] [address] 18499 -1023 08 May, 2015 High risk sexual behavior Z72.51 ; STD exposure Z20.2 and Concern about STD in female without diagnosis Z71.1 [facility] [id number] [place] [address] 52107- 0921 May, [place] [address] 30960- 1437 Apr, Neuroforaminal stenosis of spine M99.89 ; Mixed hyperlipidemia E78.2 ; Essential hypertension I10 and Hypokalemia E87.6 [place] [address] 51613- 8892 Mar, [facility] [id number] [place] [address] 12026- 8927 Mar, Hypokalemia E87.6 [place] [id number] [place] [address] 82471- 4634 Mar, Neuroforaminal stenosis of spine M99.89 ; Mixed hyperlipidemia E78.2 ; Neck pain M54.2 ; Essential hypertension I10 ; Abnormal fasting glucose R73.09 ; Hypokalemia E87.6 and Constipation K59.00 [place] [id number] [place] [address] 22519- 2910 Feb, Neuroforaminal stenosis of spine M99.89 ; Mixed hyperlipidemia E78.2 ; Neck pain M54.2 ; Essential hypertension I10 ; Abnormal fasting glucose R73.09 ; Hypokalemia E87.6 and Constipation K59.00 [place] [id number] [place] [address] 57295- 7040 Feb, Elevated fasting blood sugar R73.01 [place] [id number] [place] [address] 23436- 0203 Feb, Elevated fasting blood sugar R73.01 [place] [id number] [place] [address] 48932- 2088 Feb, Hair loss L65.9 [place] [id number] [place] [address] 12888- 8447 Feb, Sinusitis J32.9 ; Essential hypertension I10 and Hair loss L65.9 [place] [id number] [place] [address] 72743- 1023 Jan, [place] [address] 04459- 0547 Jan, Essential hypertension I10 ; Neuroforaminal stenosis of spine M99.89 ; Neck pain M54.2 ; Mixed hyperlipidemia E78.2 and Anxiety F41.9 [place] [address] [id number] [place] [address] 96969- 1117 Jan, [place] [address] [id number] [place] [address] 42253- 8347 Jan, Mixed hyperlipidemia E78.2 ; Essential (primary) hypertension I10 ; Strain of muscle, fascia and tendon at neck level, subsequent encounter S16.1XXD and Tension-type headache, unspecified, not intractable G44.209 [place] [id number] [place] [address] 24238- 1266 Dec, Lumbar back pain 724.2 and Neuroforaminal stenosis of spine 724.00 [place] [id number] [place] [address] 95480- 6712 Nov, [place] [id number] [place] [address] 75791- 3528 Nov, Lumbar back pain 724.2 and Neuroforaminal stenosis of spine 724.00 [place] [address] [id number] [place] [address] 42239- 8628 Nov, Edema 782.3 ; Lumbar back pain 724.2 ; Essential hypertension, benign 401.1 ; Hyperlipemia 272.4 ; Neuroforaminal stenosis of spine 724.00 and Post-concussion headache 339.20 [facility] [id number] [address] Nov, [facility] [address] [id number] [place] [address] 29991- 5008 Nov, [facility] [address] [id number] [place] [address] 94076- 5980 Oct, Essential hypertension, benign 401.1 [place] [address] [id number] [place] [address] 90300- 8182 Oct, Edema 782.3 ; Lumbar back pain 724.2 ; Essential hypertension, benign 401.1 ; Hyperlipemia 272.4 ; Neuroforaminal stenosis of spine 724.00 and Post-concussion headache 339.20 [facility] [address] [id number] [place] [address] 07724- 2976 Oct, [facility] [address] [place] [id number] [place] [address] 63761- 2526 Oct, Edema 782.3 [facility] [address] [place] [id number] [place] [address] 67342- 7692 Oct, Lumbar back pain 724.2 [place] [address] [place] [address] [id number] [place] [address] 50511- 5915 Oct, Cervicalgia 723.1 ; Lumbar back pain 724.2 and High risk medication use V58.69 [place] [id number] [place] [address] 36483- 4818 Sep, [place] [address] [address] [id number] [place] [address] 30982- 8472 Sep, Lumbar strain 847.2 [place] [id number] [place] [address] 41926- 7198 August, Edema 782.3 and Eustachian tube dysfunction 381.81 [facility] [id number] [address] 6[address] August, [facility] [id number] [place] [address] 96319- 2540 August, Eustachian tube dysfunction 381.81 [facility] [id number] [place] [address] 19107- 7227 Jul, Otalgia 388.70 and Otitis media 382.9 [facility] [id number] [address] 8626 Jul, [facility] [id number] [place] [address] 74739- 5025 Jul, [facility] [id number] [place] [address] 54778- 4760 Jul, [facility] [id number] [place] [address] 13615- 4238 Jul, [facility] [id number] [address] 0443 Jul, [facility] [id number] [address]- 8926 Jun, [facility] [id number] [address] 5850 Jun, [facility] [id number] [address]- 6126 Jun, [facility] [id number] 9526 May, [facility] [id number] [address]16 May, [facility] [id number] 7901 May, [facility] [id number] [place] [address], [place] [address]- 8455 May, 2014 [facility] [place] [facility] [address] [id number] [place] [address]- 2746 May, 2014 [facility] [place] [facility] [address] [id number] [place] [address] 2546 May, 2014 [facility] [place] [facility] [address] [id number] [place] [address] 2546 May, 2014 [facility] [place] [facility] [address] [id number] [place] [address] 2545 May, 2014 [facility] [place] [facility] [address] [id number] [place] [address]- 9576 May, 2014 [facility] [place] [facility] [address] [id number] [place] [address]- 8769 May, [facility] [place] [facility] [address] [id number] [place] [address]- 6317 Apr, [facility] [place] [facility] [address] [id number] [place] [address]- 6773 Apr, [facility] [place] [facility] [address] [id number] [place] [address]- 0108 Apr, [facility] [place] [facility] [address] [facility] [id number] [place] [address]- 7809 Apr, [facility] [place] [facility] [address] [id number] [place] [address]- 5205 Apr, [facility] [place] [facility] [address] [id number] [place] [address]- 2549 Apr, [facility] [place] [facility] [address] [id number] [place] [address]- 7033 Apr, [facility] [place] [facility] [address] [id number] [place] [address]- 2191 Apr, [facility] [place] [facility] [address] [id number] [place] [address]- 3871 Apr, [facility] [place] [facility] [address] [id number] [place] [address]- 2759 Apr, [facility] [place] [facility] [address] [id number] [place] [address]- 9879 Apr, [facility] [place] [facility] [address] [id number] [place] [address]- 0219 Apr, [facility] [place] [facility] [address] [id number] [place] [address]- 8808 Apr, [facility] [place] [facility] [address] [id number] [place] [address]- 3006 Apr, [facility] [place] [facility] [address] [id number] [place] [address]- 8958 Apr, [facility] [place] [facility] [address] [id number] [place] [address]- 7330 Mar, [facility] [place] [facility] [address] [id number] [place] [address]- 4589 Mar, [facility] [place] [facility] [address] [id number] [place] [address]- 1813 Mar, [facility] [place] [facility] [address] [id number] [place] [address]- 6467 Mar, [facility] [place] [facility] [address] [id number] [place] [address]- 8115 Feb, [facility] [place] [facility] [address] [id number] [place] [address]- 0382 Feb, [facility] [place] [facility] [address] [id number] [place] [address]- 5837 Feb, [facility] [place] [facility] [address] [id number] [place] [address]- 6800 Feb, [facility] [place] [facility] [address] [id number] [place] [address]- 9206 Jan, [facility] [place] [facility] [address] [id number] [place] [address]- 7652 07 Jan, 2013 [facility] [place] [facility] [address] [id number] [place] [address]- 4646 Jan, 2013 [facility] [place] [facility] [address] [id number] [place] [address]- 1888 Jan, [facility] [place] [facility] [address] [id number] [place] [address]- 4560 Jan, [facility] [place] [facility] [address] [id number] [place] [address]- 3125 Jan, [facility] [place] [facility] [address] [id number] [place] [address]- 1638 Jan, [facility] [place] [facility] [address] [id number] [place] [address]- 6173 Jan, [facility] [place] [facility] [address] [id number] [place] [address]- 3545 29 Dec, 2013 [facility] [place] [facility] [address] [id number] [place] [address]- 1137 29 Dec, 2013 [facility] [place] [facility] [address] [id number] [place] [address]- 6242 04 Dec, 2013 [facility] [place] [facility] [address] [id number] [place] [address]- 0067 04 Dec, 2013 [facility] [place] [facility] [address] [id number] [place] [address]- 7311 14 Oct, 2013 [facility] [place] [facility] [address] [id number] [place] [address]- 4799 14 Oct, 2013 [facility] [place] [facility] [address] [id number] [place] [address]- 0570 Oct, 2013 [facility] [place] [facility] [address] [id number] [place] [address]- 4370 Oct, 2013 [facility] [place] [facility] [address] [id number] [place] [address]- 7345 07 Oct, 2013 [facility] [place] [facility] [address] [id number] [place] [address]- 4465 Oct, [facility] [place] [facility] [address] [id number] [place] [address]- 4361 Oct, [facility] [place] [facility] [address] [id number] [place] [address]- 0697 Oct, [facility] [place] [facility] [address] [id number] [place] [address]- 1314 Sep, [facility] [place] [facility] [address] [id number] [place] [address]- 7067 Sep, [facility] [place] [facility] [address] [id number] [place] [address]- 5697 Sep, [facility] [place] [facility] [address] [id number] [place] [address]- 3020 Sep, [facility] [place] [facility] [address] [id number] [place] [address]- 5686 Sep, [facility] [place] [facility] [address] [id number] [place] [address]- 1261 Sep, [facility] [place] [facility] [address] [id number] [place] [address]- 1978 Sep, [facility] [place] [facility] [address] [id number] [place] [address]- 5792 Sep, [facility] [place] [facility] [address] [id number] [place] [address]- 8519 Sep, [facility] [place] [facility] [address] [id number] [place] [address]- 0885 Sep, [facility] [place] [facility] [address] [id number] [place] [address]- 7149 August, [facility] [place] [facility] [address] [id number] [place] [address]- 4460 August, [facility] [place] [facility] [address] [id number] [place] [address]- 8122 August, [facility] [address] [id number] [place] [address]- 1931 August, [facility] [place] [facility] [address] [id number] [place] [address]- 6031 August, [facility] [place] [facility] [address] [id number] [place] [address]- 2714 August, [facility] [place] [facility] [address] [id number] [place] [address]- 1038 August, [facility] [place] [facility] [address] [id number] [place] [address]- 4539 August, [facility] [place] [facility] [address] [id number] [place] [address]- 6183 August, [facility] [place] [facility] [address] [id number] [place] [address]- 2452 August, [facility] [place] [facility] [address] [id number] [place] [address]- 9585 August, [facility] [place] [facility] [address] [id number] [place] [address]- 3321 August, [facility] [place] [facility] [address] [id number] [place] [address]- 4103 Jul, [facility] [place] [facility] [address] [id number] [place] [address]- 7001 Jul, [facility] [place] [facility] [address] [id number] [address]- 3928 Jul, [facility] [place] [facility] [address] [id number] [place] [address]- 5635 Jul, [facility] [place] [facility] [address] [id number] [place] [address]- 3506 Jul, [facility] [place] [facility] [address] [id number] [place] [address]- 0884 Jul, [facility] [place] [facility] [address] [id number] [place] [address]- 1909 Jun, [facility] [address] [id number] [place] [address]- 8884 Jun, [facility] [place] [facility] [address] [id number] [place] [address]- 7667 May, [facility] [place] [facility] [address] [id number] [place] [address]- 1273 May, [facility] [place] [facility] [address] [id number] [place] [address]- 2402 Apr, [facility] [address] [id number] [place] [address]- 5834 Apr, [facility] [address] [id number] [place] [address]- 1863 Apr, [facility] [address] [id number] [place] [address]- 6003 Apr, [facility] [address] [id number] [place] [address]- 9234 Apr, [facility] [place] [facility] [address] [id number] [place] [address]- 5613 Apr, [facility] [address] [id number] [place] [address]- 6928 Apr, [facility] [place] [facility] [address] [id number] [place] [address]- 7034 Apr, [facility] [place] [facility] [address] [id number] [place] [address]- 8035 Apr, [facility] [place] [facility] [address] [id number] [place] [address]- 9063 Apr, [facility] [place] [facility] [address] [id number] [place] [address]- 2700 Apr, [facility] [place] [facility] [address] [id number] [place] [address]- 1241 Apr, [facility] [place] [facility] [address] [id number] [place] [address]- 6583 Apr, [facility] [place] [facility] [address] [id number] [place] [address]- 4874 Mar, [facility] [place] [facility] [address] [id number] [place] [address]- 8033 Mar, [facility] [place] [facility] [address] [id number] [place] [address]- 4537 Mar, [facility] [place] [facility] [address] [id number] [place] [address]- 7065 Mar, [facility] [place] [facility] [address] [id number] [place] [address]- 8275 Feb, [facility] [place] [facility] [address] [id number] [place] [address]- 0727 Feb, [facility] [place] [facility] [address] [id number] [place] [address]- 1445 Feb, [facility] [place] [facility] [address] [id number] [place] [address]- 6053 Feb, [facility] [place] [facility] [address] [id number] [address]- 3790 14 Jan, 2013 [facility] [place] [facility] [address] [id number] [place] [address]- 2790 14 Jan, 2013 [facility] [place] [facility] [address] [id number] [address]- 4853 11 Jan, 2013 [facility] [place] [facility] [address] [id number] [address]- 9580 11 Jan, 2013 [facility] [place] [facility] [address] [id number] [address]- 5607 10 Jan, 2013 [facility] [place] [facility] [address] [id number] [place] [address]- 5025 10 Jan, 2013 [facility] [place] [facility] [address] [id number] [address]- 3969 Jan, [facility] [address] [id number] [place] [address]- 9239 Jan, [facility] [place] [facility] [address] [id number] [place] [address]- 1824 Jan, [facility] [place] [facility] [address] [id number] [place] [address]- 9048 Dec, [facility] [place] [facility] [address] [id number] [place] [address]- 3166 16 Dec, 2012 [facility] [place] [facility] [address] [id number] [place] [address]- 8465 16 Dec, 2012 [facility] [place] [facility] [address] [id number] [place] [address]- 8252 Dec, [facility] [address] [id number] [place] [address]- 4695 Nov, [facility] [place] [facility] [address] [id number] [place] [address]- 7315 Nov, [facility] [place] [facility] [address] [id number] [place] [address]- 1592 Nov, [facility] [place] [facility] [address] [id number] [place] [address]- 5182 Nov, [facility] [place] [facility] [address] [id number] [place] [address]- 1317 Oct, [facility] [place] [facility] [address] [id number] [place] [address]- 7816 Sep, [facility] [place] [facility] [address] [id number] [place] [address]- 9825 August, [facility] [place] [facility] [address] [id number] [place] [address]- 5622 August, [facility] [place] [facility] [address] [id number] [place] [address]- 7362 August, [facility] [place] [facility] [address] [id number] [place] [address]- 6808 August, [facility] [address] [id number] [place] [address]- 0115 August, [facility] [address] [id number] [place] [address]- 6026 August, [facility] [address] [id number] [place] [address]- 8934 August, [facility] [address] [id number] [place] [address]- 9647 August, [facility] [address] [id number] [place] [address]- 1548 August, [facility] [address] [id number] [place] [address]- 3779 August, [facility] [address] [id number] [place] [address]- 1153 August, [facility] [address] [id number] [place] [address]- 5180 August, [facility] [address] [id number] [place] [address]- 9695 Jul, [facility] [address] [id number] [place] [address]- 5158 Jul, [facility] [address] [id number] [place] [address]- 3538 18 Jul, 2012 [facility] [address] [id number] [place] [address]- 1003 15 Jul, 2012 [facility] [place] [facility] [address] [id number] [place] [address]- 7985 Jul, [facility] [address] [id number] [place] [address]- 0916 08 Jul, 2012 [facility] [address] [id number] [place] [address]- 0947 Jul, [facility] [place] [facility] [address] [id number] [place] [address]- 4149 Jul, [facility] [place] [facility] [address] [id number] [place] [address]- 4198 Jul, [facility] [place] [facility] [address] [id number] [place] [address]- 4419 Jul, [facility] [place] [facility] [address] [id number] [place] [address]- 2514 Jul, [facility] [place] [facility] [address] [id number] [place] [address]- 3913 Jun, [facility] [place] [facility] [address] [id number] [place] [address]- 4630 Jun, [facility] [place] [facility] [address] [id number] [place] [address]- 2039 Jun, [facility] [place] [facility] [address] [id number] [place] [address]- 4667 Jun, [facility] [place] [facility] [address] [id number] [place] [address]- 2762 May, [facility] [place] [facility] [address] [id number] [place] [address]- 9013 May, [facility] [place] [facility] [address] [id number] [place] [address]- 6220 May, [facility] [place] [facility] [address] [id number] [address]- 5556 May, [facility] [place] [facility] [address] [id number] [place] [address]- 6953 May, [facility] [place] [facility] [address] [id number] [place]709 May, [facility] [place] [facility] [address] [id number] [place] [address]- 6353 Apr, [facility] [place] [facility] [address] [id number] [place] [address]- 6326 31 Apr, 2012 [facility] [address] [id number] [place] [address]- 2469 30 Apr, 2012 [facility] [place] [facility] [address] [id number] [place] [address]- 4048 28 Apr, 2012 [facility] [address] [id number] [place] [address]- 1945 15 Mar, 2012 [facility] [address] [id number] [place] [address]- 8804 14 Mar, 2012 [facility] [address] [id number] [place] [address]- 5956 Mar, [facility] [address] [id number] [place] [address]- 0640 14 Mar, 2012 [facility] [address] [id number] [place] [address]- 8376 14 Mar, 2012 [facility] [address] [id number] [place] [address]- 0097 06 Mar, 2012 [facility] [address] [id number] [place] [address]- 0883 Mar, [facility] [address] [id number] [place] [address]- 8188 Feb, [facility] [place] [facility] [address] [id number] [place] [address]- 6924 Feb, [facility] [place] [facility] [address] [id number] [place] [address]- 1056 Feb, [facility] [place] [facility] [address] [id number] [place] [address]- 2836 Feb, [facility] [place] [facility] [address] [id number] [place] [address]- 0985 Jan, [facility] [place] [facility] [address] [id number] [place] [address]- 3249 Jan, [facility] [place] [facility] [address] [id number] [place] [address]- 6575 Jan, [facility] [place] [facility] [address] [id number] [place] [address] Jan, [facility] [place] [facility] [address] [id number] [place] [address] Jan, [facility] [place] [facility] [address] [id number] [place] [address] Jan, [facility] [place] [facility] [address] [id number] [place] [address] Dec, [facility] [place] [facility] [address] [id number] [place] [address] Dec, [facility] [place] [facility] [address] [id number] [place] [address] Nov, [facility] [place] [facility] [address] [id number] [place] [address] Sep, [facility] [place] [facility] [address] [id number] [place] [address] August, [facility] [place] [facility] [address] [id number] [place] [address] August, [facility] [place] [facility] [address] [id number] [place] [address] August, [facility] [place] [facility] [address] [id number] [place] [address] August, [facility] [place] [facility] [address] [id number] [place] [address] August, [facility] [place] [facility] [address] [id number] [place] [address] Jun, [facility] [place] [facility] [address] [id number] [place] [address] Jun, [facility] [place] [facility] [address] [id number] [place] [address] Apr, [facility] [place] [facility] [address] [id number] [place] [address] Apr, [facility] [place] [facility] [address] [id number] [place] [address] Mar, [facility] [place] [facility] [address] [id number] [place] [address] Feb, [facility] [place] [facility] [address] [id number] [place] [address] 14 Feb, 2011 [facility] [place] [facility] [address] [id number] [place] [address] 14 Feb, 2011 [facility] [place] [facility] [address] [id number] [place] [address] 17 Jan, 2011 [facility] [place] [facility] [address] [id number] [place] [address] 15 Jan, 2011 [facility] [place] [facility] [address] [id number] [place] [address] 15 Jan, 2011 [facility] [place] [facility] [address] [id number] [place] [address] 14 Jan, 2011 [facility] [place] [facility] [address] [id number] [place] [address] 15 May, 2010 [facility] [place] [facility] [address] [id number] [place] [address] 04 Mar, 2010 [facility] [place] [facility] [address] [id number] [address] Oct, [facility] [place] [facility] [address] [id number] [place] [address] 14 Sep, 2009 [facility] [place] [facility] [address] [id number] [place] [address] Mar, [facility] [place] [facility] [address] [id number] [place] [address] 27 Jan, 2009 [facility] [place] [facility] [address] [facility] [id number] [place] [address] Jan, [facility] [address] [facility] [id number] [place] [address] May, IMMUNIZATIONS No Known Immunizations SOCIAL HISTORY Never Assessed REASON FOR VISIT chronic pain--tcuppettRN PLAN OF CARE Activity Details Follow Up 3 Months. 48-72 hours Reason:pain/HTN VITAL SIGNS Height 62 in 2017-11-01 Weight 178.6 lbs 2017-11-01 Temperature 98.2 degrees Fahrenheit 2017-11-01 Heart Rate 84 bpm 2017-11-01 Respiratory Rate 18 2017-11-01 BMI 32.66 kg/m2 2017-11-01 Blood pressure systolic 122 mmHg 2017-11-01 Blood pressure diastolic 78 mmHg 2017-11-01 MEDICATIONS Medication Instructions Dosage Frequency Start Date End Date Duration Status Triamterene-HCTZ 37.5-25 MG Orally Once a day 1 tablet in the morning 24h 30 Active Amlodipine Besylate 5 mg Orally Once a day 1 tablet 24h 30 days Active Hydrocodone-Acetaminophen 5-325 MG Orally 3 -4 times a day prn. must last 4 weeks 1 tablet as needed Oct, Active Cyclobenzaprine HCl 10 mg Orally Three times a day 1 tablet as needed 8h Active Meclizine HCl 25 MG Orally Once a day 1 tablet as needed 24h Active Pravastatin Sodium 20 mg Orally Once a day TAKE ONE TABLET BY MOUTH AT BEDTIME 24h 30 Active Naproxen 500 mg Orally every 12 hrs 1 tablet with food or milk as needed 12h Active RESULTS No Results PROCEDURES Procedure Date Ordered Result Body Site TB INTRADERMAL 2017-11-01 N/A TB INTRADERMAL TEST November 01, 2017 INSTRUCTIONS MEDICATIONS ADMINISTERED No Known Medications MEDICAL (GENERAL) HISTORY Type Description Date Medical History hypertension Medical History Colposcopy with loop electrode excision of the cervix was performed 06/2012, mild squamous atypia (no definite dyplasia). Performed at [facility] Dr. Joy. Medical History Acute suppurative otitis [...]
--- OUTSIDE RECORDS SUMMARY | 2018-06-10 04:50 | XMS REPORT ---
Author Author BETI STAUFFER [facility] Address [address] [place] [address] Care Team Providers Care College Coach Name Role Phone JULIENNE STAUFFERTA Unavailable PROBLEMS Type Condition ICD9-CM Code XVL40-CK Code Onset Dates Condition Status SNOMED Code Problem Hematuria, unspecified type R31.9 Active 49413542 Problem Anxiety F41.9 Active 40551305 Problem Abnormal renal ultrasound R93.429 Active [id number] Problem Abnormal glucose R73.09 Active 216176910 Problem 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 Active 256902571 Problem Hypokalemia E87.6 Active 18265009 Problem Neck pain M54.2 Active 35362851 Problem Neuroforaminal stenosis of spine M99.89 Active 348983374735 Problem Mixed hyperlipidemia E78.2 Active 92548396 Problem Essential hypertension I10 Active 32462306 ALLERGIES No Information ENCOUNTERS Encounter Location Date Diagnosis [facility] [address] [address]- [address] Dec, [facility] [id number] [place] [address] 83348- 8829 Dec, Abnormal glucose R73.09 ; Abnormal renal ultrasound R93.429 ; Dysuria R30.0 ; Cystitis without hematuria N30.90 ; Hypokalemia E87.6 ; Mixed hyperlipidemia E78.2 and Hematuria, unspecified type R31.9 [facility] [id number] [place] [address] 79231- 3255 Nov, Hypokalemia E87.6 ; Mixed hyperlipidemia E78.2 and Hematuria , unspecified type R31.9 [facility] [id number] [place] [address] 72189- 2799 Nov, [facility] [address] [place] [address]- 2194 Nov, Hypokalemia E87.6 [facility] [address] 87060- 2770 Nov, [facility] [id number] [place] [address] 76637- 4538 Nov, Abnormal renal ultrasound R93.429 [place] [address] 13370- 6330 Nov, Abnormal renal ultrasound R93.429 [place] [address] 05571- 4419 Nov, Hematuria, unspecified type R31.9 and Neuroforaminal stenosis of spine M99.89 [place] [facility] [address] 60729- 5708 Nov, Dysuria R30.0 [place] [address] 07927- 7088 Oct, Lateral epicondylitis, right elbow M77.11 [place] [address] 98199- 5867 Oct, Neuroforaminal stenosis of spine M99.89 ; Visit for TB skin test Z11.1 and Essential hypertension I10 [facility] [id number] [place] [address] 55757- 5139 Oct, [place] [facility] [address] 86362- 1993 Oct, Neuroforaminal stenosis of spine M99.89 [place] [facility] [address] 80173- 8605 Oct, Visit for TB skin test Z11.1 [facility] [id number] [place] [address] 88604- 2170 05 Oct, 2017 Cystitis without hematuria N30.90 [place] [address] [place] [address]- 8702 Sep, Screening breast examination Z12.39 [place] [address] 80543- 0922 Sep, Dysuria R30.0 and Cystitis without hematuria N30.90 [place] [facility] [address] 80878- 2006 14 Sep, 2017 Essential hypertension I10 and Neuroforaminal stenosis of spine M99.89 [place] [address] 37166- 0135 Sep, Abnormal glucose R73.09 [place] [address] 16093- 4806 August, Lateral epicondylitis, right elbow M77.11 [place] [address] 95875- 0109 August, Screen for STD (sexually transmitted disease) Z11.3 [place] [address] 76241- 7368 August, Neuroforaminal stenosis of spine M99.89 ; Mixed hyperlipidemia E78.2 ; Elevated fasting glucose R73.01 ; Screening mammogram, encounter for Z12.31 and Encounter for well woman exam without gynecological exam Z00.00 [facility] [id number] [place] [address] 62140- 4613 August, Neuroforaminal stenosis of spine M99.89 [facility] [id number] [place] [address] 54974- 7541 August, Essential hypertension I10 ; Hypokalemia E87.6 and Mixed hyperlipidemia E78.2 [place] [address] 13163- 5150 Jul, [facility] [id number] [place] [address] 46713- 5459 Jul, Neuroforaminal stenosis of spine M99.89 [facility] [id number] [place] [address] 40702- 4678 Jul, Lateral epicondylitis, right elbow M77.11 [place] [id number] [place] [address] 31963- 5587 Jul, [facility] [id number] [place] [address] 51861- 8624 Jun, High ankle sprain of right lower extremity, initial encounter S93.431A [place] [address] 60921- 1959 Jun, Essential hypertension I10 [place] [address] 66692- 5523 Jun, [facility] [id number] [place] [address] 23335- 8872 Jun, [place] [address] 42646- 7273 Jun, Neuroforaminal stenosis of spine M99.89 [facility] [id number] [place] [address] 72181- 3744 Jun, Pain of right upper extremity M79.601 and Essential hypertension I10 [facility] [id number] [place] [address] 08066- 7749 Jun, [facility] [id number] [place] [address] 91184- 1488 Jun, Dysuria R30.0 ; Acute cystitis with hematuria N30.01 and Screen for STD (sexually transmitted disease) Z11.3 [facility] [id number] [place] [address] 91620- 9883 May, 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 [facility] [id number] [place] [address] 06804- 9881 May, Essential hypertension I10 [place] [address] 56484- 6738 May, Neuroforaminal stenosis of spine M99.89 [facility] [id number] [place] [address] 95280- 7239 Apr, Allergic reaction, initial encounter T78.40XA [place] [id number] [place] [address] 27260- 2850 Apr, Low back pain, unspecified back pain laterality, unspecified chronicity, with sciatica presence unspecified M54.5 ; Acute cystitis with hematuria N30.01 ; Neuroforaminal stenosis of spine M99.89 ; Bilateral acute serous otitis media, recurrence not specified H65.03 ; Mixed hyperlipidemia E78.2 ; Essential hypertension I10 ; Immunization counseling Z71.89 and Encounter for immunization Z23 [place] [id number] [place] [address] 84418- 1711 Apr, Neck pain M54.2 [place] [address] 12557- 1124 Mar, Neuroforaminal stenosis of spine M99.89 [facility] [id number] [place] [address] 80422- 0971 Mar, Pharyngitis due to other organism J02.8 [facility] [id number] [place] [address] 07070- 6064 Feb, Neuroforaminal stenosis of spine M99.89 [facility] [id number] [place] [address] 15648- 4015 08 Feb, 2017 UTI (urinary tract infection) N39.0 [facility] [place] [id number] [place] [address] 61035- 7495 07 Feb, 2017 Recent urinary tract infection Z87.440 ; Neuroforaminal stenosis of spine M99.89 ; Neck pain M54.2 ; 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 and Recurrent UTI N39.0 [place] [id number] [place] [address] 74640- 8780 Feb, [place] [id number] [place] [address] 27087- 1562 Jan, Neuroforaminal stenosis of spine M99.89 [place] [id number] [place] [address] 47035- 0393 Dec, Neuroforaminal stenosis of spine M99.89 [place] [id number] [place] [address] 07670- 5475 18 Dec, 2016 Acute seasonal allergic rhinitis due to pollen J30.1 [place] [id number] [place] [address] 63554- 8250 08 Dec, 2016 [place] [address] 88348- 1732 08 Dec, 2016 Acute seasonal allergic rhinitis, unspecified trigger J30.2 ; Allergic conjunctivitis of both eyes H10.13 and Dysfunction of both eustachian tubes H69.83 [place] [id number] [place] [address] 83097- 5670 Dec, [place] [id number] [place] [address] 52861- 2615 Dec, Nevus D22.9 [facility] [id number] [place] [address] 93315- 4520 Nov, 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 and Neuroforaminal stenosis of spine M99.89 [place] [id number] [place] [address] 17531- 9983 Nov, Neuroforaminal stenosis of spine M99.89 ; Essential hypertension I10 ; Mixed hyperlipidemia E78.2 ; Hypokalemia E87.6 ; Neck pain M54.2 and Nevus D22.9 [place] [id number] [place] [address] 94744- 4127 Oct, Neuroforaminal stenosis of spine M99.89 [place] [place] [id number] [place] [address] 27725- 6684 Sep, Neuroforaminal stenosis of spine M99.89 [facility] [address] [facility] [id number], [place] [address]- 6466 Sep, [facility] [address] [facility] [id number], [place] [address]- 9916 August, [facility] [address] [facility] [id number] [place] [address] 75459- 5784 August, Neck pain M54.2 and Neuroforaminal stenosis of spine M99.89 [facility] [address] [facility] [id number] [place] [address] 80936- 0888 August, Routine gynecological examination Z01.419 and Screening breast examination Z12.39 [facility] [address] [facility] [id number] [place] [address] 76571- 8436 Jul, [facility] [id number] [place] [address] 57628- 8927 Jul, [facility] [id number] [place] [address] 34731- 8297 Jul, Neuroforaminal stenosis of spine M99.89 [facility] [id number] [place] [address] 74777- 5310 Jul, [facility] [address] [id number] [address]- 0480 Jul, 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 [facility] [address] [facility] [id number], [place] [address]- 6519 Jul, [facility] [address] [facility] [id number], [place] [address]- 9506 Jul, [facility] [address] [facility] [id number] [place] [address] 64218- 2549 Jun, Neuroforaminal stenosis of spine M99.89 [facility] [address] [facility] [id number], [place] [address]- 6351 Jun, Uterine leiomyoma, unspecified location D25.9 and Allergic reaction caused by a drug, initial encounter T78.40XA [place] [id number] [place] [address] 84893- 4814 Jun, [place] [id number] [place] [address] 74088- 0156 May, UTI symptoms R39.9 and Pain of right sacroiliac joint M53.[address] 42182- 0284 May, Neuroforaminal stenosis of spine M99.[address] 59404- 2465 May, [address] 21758- 2688 May, Acute mucoid otitis media of left ear H65.112 and Acute non- recurrent maxillary sinusitis J01.00 [place] [id number] [place] [address] 77451- 2996 May, Acute bacterial conjunctivitis of both eyes H10.33 ; Left arm pain M79.602 and Hypokalemia E87.6 [place] [id number] [place] [address] 54277- 7643 Apr, [place] [id number] [place] [address] 36469- 4272 Apr, Neuroforaminal stenosis of spine M99.89 ; Neck pain M54.2 ; 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 ; Mixed hyperlipidemia E78.2 ; Essential hypertension I10 and Hypokalemia E87.6 [place] [id number] [place] [address] 08534- 5334 Mar, Oral candidiasis B37.0 ; Neuroforaminal stenosis of spine M99.89 ; Neck pain M54.2 and 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 [place] [address] [place] [address]- 1500 Feb, [facility] [id number] [place] [address] 88988- 1829 Feb, [facility] [id number] [place] [address] 62997- 4716 Feb, UTI (urinary tract infection) N39.0 [facility] [address] 51714- 9810 Feb, Dysuria R30.0 [facility] [id number] [place] [address] 75731- 5361 Feb, Dysuria R30.0 [facility] [id number] [place] [address] 78716- 4069 Feb, Neuroforaminal stenosis of spine M99.89 ; Neck pain M54.2 ; Essential hypertension I10 ; 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 ; Dysuria R30.0 ; Abnormal MRI, shoulder R93.8 and Acute cystitis without hematuria N30.00 [facility] [id number] [place] [address] 20709- 4510 Jan, [facility] [id number] [place] [address] 84584- 5336 Jan, [facility] [id number] [place] [address] 81996- 9118 Jan, [facility] [id number] [place] [address] 37445- 9398 Jan, Abnormal MRI R93.8 [facility] [id number] [place] [address] 88920- 7027 29 Dec, 2015 [facility] [id number] [place] [address] 31893 -4785 Dec, Acute pain of left shoulder M25.512 [facility] [id number] [place] [address] 79768- 5794 Dec, [facility] [address], [place] [address]- 1397 Dec, [facility] [id number] [place] [address] 39297- 0633 Dec, Acute pain of left shoulder M25.512 [facility] [address], [place] [address]- 8901 Nov, [facility] [id number] [place] [address] 30760- 3740 Nov, Neuroforaminal stenosis of spine M99.89 ; Neck pain M54.2 ; Abnormal mammogram R92.8 ; Essential hypertension I10 and 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 [facility] [address], [place] [address]- 9190 Nov, [facility] [id number] [place] [address] 99839- 5618 Oct, Acute stress disorder F43.0 [facility] [id number] [place] [address] 76201- 1795 Oct, [facility] [id number] [place] [address] 89158- 2505 Oct, [facility] [address] [address]- 6456 Oct, [facility] [address] [id number] [address]- 1231 Sep, [facility] [address], [place] [address]- 5962 August, [facility] [id number] [place] [address] 72820- 9319 Jul, Neuroforaminal stenosis of spine M99.89 ; Neck pain M54.2 ; Abnormal mammogram R92.8 and Essential hypertension I10 [facility] [id number] [place] [address] 39251- 7707 Jul, [facility] [address], [place] [address] 2546 Jul, [facility] [id number] [place] [address] 34704 2546 Jul, Abnormal mammogram R92.8 [facility] [id number] [place] [address] 66743 2546 Jul, [facility] [id number] [place] [address] 96303 2542 Jul, UTI (urinary tract infection) N39.0 [facility] [id number] [place] [address] 15379- 0838 Jul, Dysuria R30.0 [facility] [id number] [place] [address] 62626- 0076 Jun, [facility] [id number] [place] [address] 59026- 0786 Jun, [facility] [id number] [place] [address] 12751 2544 Jun, Hypokalemia E87.6 and Hematuria R31.9 [facility] [id number] [place] [address] 40546 2546 Jun, Hypokalemia E87.6 [facility] [id number] [place] [address] 84379 2546 Jun, [facility] [id number] [place] [address] 60793 2546 18 Jun, 2015 Hypokalemia E87.6 [facility] [id number] [place] [address] 27109 2546 18 Jun, 2015 Hypokalemia E87.6 [facility] [address], [place] [address] 2546 15 Jun, 2016 Neuroforaminal stenosis of spine M99.89 ; Hypokalemia E87.6 ; Neck pain M54.2 ; Essential hypertension I10 ; Mixed hyperlipidemia E78.2 and Screening breast examination Z12.[address] 52007- 2684 Jun, Dysuria R30.0 ; UTI (urinary tract infection) N39.0 and Hematuria R31.[address] 43685- 9343 May, [place] [address] 42066- 4777 May, High risk sexual behavior Z72.51 ; Hypokalemia E87.6 ; Neuroforaminal stenosis of spine M99.89 ; Neck pain M54.2 ; Essential hypertension I10 ; Mixed hyperlipidemia E78.2 ; STD exposure Z20.2 and Concern about STD in female without diagnosis Z71.[address] 78376- 8069 16 May, 2015 Neuroforaminal stenosis of spine M99.89 ; Neck pain M54.2 ; Hypokalemia E87.6 ; Essential hypertension I10 and Mixed hyperlipidemia E78.2 [place] [id number] [place] [address] 73547- 5335 May, [facility] [id number] [place] [address] 29064 -3968 08 May, 2015 High risk sexual behavior Z72.51 ; STD exposure Z20.2 and Concern about STD in female without diagnosis Z71.1 [place] [id number] [place] [address] 61980- 2907 May, [address] 47984- 3704 Apr, Neuroforaminal stenosis of spine M99.89 ; Mixed hyperlipidemia E78.2 ; Essential hypertension I10 and Hypokalemia E87.[address] 19583- 6280 Mar, [place] [id number] [place] [address] 11168- 1329 Mar, Hypokalemia E87.6 [place] [id number] [place] [address] 92088- 1352 Mar, Neuroforaminal stenosis of spine M99.89 ; Mixed hyperlipidemia E78.2 ; Neck pain M54.2 ; Essential hypertension I10 ; Abnormal fasting glucose R73.09 ; Hypokalemia E87.6 and Constipation K59.00 [place] [id number] [place] [address] 89437- 2498 Feb, Neuroforaminal stenosis of spine M99.89 ; Mixed hyperlipidemia E78.2 ; Neck pain M54.2 ; Essential hypertension I10 ; Abnormal fasting glucose R73.09 ; Hypokalemia E87.6 and Constipation K59.00 [place] [id number] [place] [address] 47174- 2124 Feb, Elevated fasting blood sugar R73.01 [place] [id number] [place] [address] 00665- 1696 Feb, Elevated fasting blood sugar R73.01 [place] [id number] [place] [address] 83420- 6028 Feb, Hair loss L65.9 [place] [id number] [place] [address] 85545- 9491 Feb, Sinusitis J32.9 ; Essential hypertension I10 and Hair loss L65.9 [place] [id number] [place] [address] 52300- 9551 Jan, [place] [id number] [place] [address] 02981- 7941 Jan, Essential hypertension I10 ; Neuroforaminal stenosis of spine M99.89 ; Neck pain M54.2 ; Mixed hyperlipidemia E78.2 and Anxiety F41.9 [place] [id number] [place] [address] 58641- 9620 Jan, [facility] [id number] [place] [address] 31181- 6669 Jan, Mixed hyperlipidemia E78.2 ; Essential (primary) hypertension I10 ; Strain of muscle, fascia and tendon at neck level, subsequent encounter S16.1XXD and Tension-type headache, unspecified, not intractable G44.209 [place] [id number] [place] [address] 65265- 5300 Dec, Lumbar back pain 724.2 and Neuroforaminal stenosis of spine 724.00 [place] [id number] [place] [address] 73696- 4646 Nov, [place] [id number] [place] [address] 49989- 6343 Nov, Lumbar back pain 724.2 and Neuroforaminal stenosis of spine 724.00 [place] [id number] [place] [address] 97333- 4487 Nov, Edema 782.3 ; Lumbar back pain 724.2 ; Essential hypertension, benign 401.1 ; Hyperlipemia 272.4 ; Neuroforaminal stenosis of spine 724.00 and Post-concussion headache 339.20 [place] [id number] [place] [address] 84178- 7067 Nov, [place] [id number] [place] [address] 50769- 2109 Nov, [facility] [id number] [place] [address] 15913- 6352 Oct, Essential hypertension, benign 401.1 [place] [id number] [place] [address] 42752- 2994 Oct, Edema 782.3 ; Lumbar back pain 724.2 ; Essential hypertension, benign 401.1 ; Hyperlipemia 272.4 ; Neuroforaminal stenosis of spine 724.00 and Post-concussion headache 339.20 [facility] [address], [place] [address]- 9405 Oct, [facility] [id number] [place] [address] 26135- 6377 Oct, Edema 782.3 [facility] [id number] [place] [address] 47339- 7196 Oct, Lumbar back pain 724.2 [facility] [id number] [place] [address] 22979- 6814 Oct, Cervicalgia 723.1 ; Lumbar back pain 724.2 and High risk medication use V58.69 [facility] [id number] [place] [address] 43438- 9366 Sep, [facility] [id number] [place] [address] 89205- 2593 Sep, Lumbar strain 847.2 [facility] [id number] [place] [address] 70804- 7920 August, Edema 782.3 and Eustachian tube dysfunction 381.81 [facility] [id number] [place] [address] 85453- 6271 August, [facility] [id number] [place] [address] 05340- 2137 August, Eustachian tube dysfunction 381.81 [facility] [id number] [place] [address] 14121- 6257 Jul, Otalgia 388.70 and Otitis media 382.9 [facility] [id number] [place] [address] 64993- 8054 Jul, [facility] [id number] [place] [address] 47708- 7234 Jul, [facility] [id number] [place] [address] 65585- 5942 Jul, [facility] [place] [facility] [address] [facility] [id number] [place] [address]- 4394 14 Jul, 2014 [facility] [place] [facility] [address] [id number] [place] [address]- 8444 13 Jul, 2014 [facility] [place] [facility] [address] [id number] [place] [address]- 1717 27 Jun, 2014 [facility] [place] [facility] [address] [id number] [place] [address]- 7486 27 Jun, 2014 [facility] [place] [facility] [address] [facility] [id number] [place] [address]- 7460 16 Jun, 2014 [facility] [place] [facility] [address] [id number] [place] [address]- 6351 May, 2014 [facility] [place] [facility] [address] [facility] [id number] [place] [address]- 8203 May, 2014 [facility] [place] [facility] [address] [facility] [id number] [place] [address]- 4625 23 May, 2014 [facility] [place] [facility] [address] [facility] [id number] [place] [address]- 7632 May, 2014 [facility] [place] [facility] [address] [facility] [facility] [id number] [place] [address] May, 2014 [facility] [place] [facility] [address] [facility] [id number] [place] [address] 9[address] May, 2014 [facility] [place] [facility] [address] [facility] [id number], [place] [address] 09 May, 2014 [facility] [place] [facility] [address] [facility] [id number] [place] [address] 8238 May, 2014 [facility] [place] [facility] [address] [facility] [id number] [place] [address]- 0605 05 May, 2014 [facility] [place] [facility] [address] [facility] [id number], [place] [address] 03 May, 2014 [facility] [place] [facility] [address] [facility] [id number], [place] [address] Apr, [facility] [address] [id number] [place] [address]- 0790 Apr, [facility] [place] [facility] [address] [id number] [place] [address]- 5262 Apr, [facility] [place] [facility] [address] [id number] [place] [address]- 2819 Apr, [facility] [place] [facility] [address] [id number] [place] [address]- 7046 Apr, [facility] [place] [facility] [address] [id number] [place] [address]- 3398 Apr, [facility] [place] [facility] [address] [id number] [place] [address]- 8547 Apr, [facility] [place] [facility] [address] [id number] [place] [address]- 5937 Apr, [facility] [place] [facility] [address] [id number] [place] [address]- 7667 Apr, [facility] [place] [facility] [address] [id number] [place] [address]- 5624 Apr, [facility] [place] [facility] [address] [facility] [id number] [place] [address]- 0267 Apr, [facility] [place] [facility] [address] [id number] [place] [address]- 5942 Apr, [facility] [place] [facility] [address] [id number], [place] [address] Apr, [facility] [place] [facility] [address] [id number] [place] [address]- 9771 Apr, [facility] [place] [facility] [address] [id number] [place] [address]- 9691 Apr, [facility] [place] [facility] [address] [id number] [place] [address]- 3486 Mar, [facility] [place] [facility] [address] [id number] [place] [address]- 1613 Mar, [facility] [place] [facility] [address] [id number] [place] [address]- 7024 Mar, [facility] [place] [facility] [address] [id number] [place] [address]- 7030 Mar, [facility] [place] [facility] [address] [id number] [place] [address]- 2400 Feb, [facility] [place] [facility] [address] [id number] [place] [address]- 9159 Feb, [facility] [place] [facility] [address] [id number] [place] [address]- 5013 Feb, [facility] [place] [facility] [address] [id number] [place] [address]- 6260 Feb, [facility] [place] [facility] [address] [id number] [place] [address]- 8586 Jan, [facility] [place] [facility] [address] [id number] [place] [address]- 1127 Jan, [facility] [place] [facility] [address] [id number] [place] [address]- 6931 Jan, [facility] [place] [facility] [address] [id number] [place] [address] Jan, [facility] [place] [facility] [address] [id number] [place] [address]- 8795 Jan, [facility] [place] [facility] [address] [id number] [place] [address]- 0061 Jan, [facility] [place] [facility] [address] [id number] [place] [address]- 2614 Jan, [facility] [place] [facility] [address] [id number] [place] [address]- 0886 Jan, [facility] [place] [facility] [address] [id number] [place] [address]- 6463 Dec, 2013 [facility] [place] [facility] [address] [id number] [place] [address]- 4877 Dec, 2013 [facility] [place] [facility] [address] [id number] [place] [address]- 3823 Dec, [facility] [place] [facility] [address] [id number] [place] [address]- 4850 Dec, [facility] [place] [facility] [address] [id number] [place] [address]- 2979 Oct, [facility] [place] [facility] [address] [id number] [place] [address]- 4292 Oct, [facility] [place] [facility] [address] [id number] [place] [address]- 6353 Oct, [facility] [place] [facility] [address] [id number] [place] [address]- 5094 Oct, [facility] [place] [facility] [address] [id number] [place] [address]- 1351 Oct, [facility] [place] [facility] [address] [id number] [place] [address]- 5164 Oct, [facility] [place] [facility] [address] [id number] [place] [address]- 0492 Oct, [facility] [place] [facility] [address] [id number] [place] [address]- 0539 Oct, [facility] [place] [facility] [address] [id number] [place] [address]- 9940 Sep, [facility] [place] [facility] [address] [id number] [place] [address]- 8158 Sep, [facility] [place] [facility] [address] [id number] [place] [address]- 9758 Sep, [facility] [place] [facility] [address] [id number] [place] [address]- 1467 Sep, [facility] [place] [facility] [address] [id number] [place] [address]- 3648 Sep, [facility] [place] [facility] [address] [id number] [place] [address]- 5703 Sep, [facility] [place] [facility] [address] [id number] [place] [address]- 2496 Sep, [facility] [place] [facility] [address] [id number] [place] [address]- 0295 Sep, [facility] [place] [facility] [address] [id number] [place] [address]- 9349 Sep, [facility] [place] [facility] [address] [id number] [place] [address]- 4976 Sep, [facility] [place] [facility] [address] [id number] [place] [address]- 9479 August, [facility] [place] [facility] [address] [id number] [place] [address]- 4189 August, [facility] [place] [facility] [address] [id number] [place] [address]- 2000 August, [facility] [place] [facility] [address] [id number] [place] [address]- 9407 August, [facility] [place] [facility] [address] [id number] [place] [address]- 1486 August, [facility] [place] [facility] [address] [id number] [place] [address]- 1253 August, [facility] [place] [facility] [address] [id number] [place] [address]- 8923 August, [facility] [place] [facility] [address] [id number] [place] [address]- 2787 August, [facility] [place] [facility] [address] [id number] [place] [address]- 7682 August, [facility] [place] [facility] [address] [id number] [place] [address]- 6740 August, [facility] [place] [facility] [address] [id number] [place] [address]- 3691 August, [facility] [place] [facility] [address] [id number] [place] [address]- 7390 August, [facility] [place] [facility] [address] [id number] [place] [address]- 4070 Jul, [facility] [place] [facility] [address] [id number] [place] [address]- 2366 Jul, [facility] [place] [facility] [address] [id number] [place] [address]- 2229 Jul, [facility] [place] [facility] [address] [id number] [place] [address]- 0385 Jul, [facility] [place] [facility] [address] [id number] [place] [address]- 2119 Jul, [facility] [place] [facility] [address] [id number] [place] [address]- 9316 Jul, [facility] [place] [facility] [address] [id number] [place] [address]- 7290 Jun, [facility] [place] [facility] [address] [id number] [place] [address]- 1840 Jun, [facility] [place] [facility] [address] [id number] [place] [address]- 2232 May, [facility] [place] [facility] [address] [id number] [place] [address]- 1880 May, [facility] [place] [facility] [address] [id number] [place] [address]- 0694 Apr, [facility] [place] [facility] [address] [id number] [place] [address]- 9203 Apr, [facility] [place] [facility] [address] [id number] [place] [address]- 0207 Apr, [facility] [place] [facility] [address] [id number], [place] [address]- 0560 Apr, [facility] [address] [id number] [place] [address]- 2356 Apr, [facility] [place] [facility] [address] [id number] [place] [address]- 5246 Apr, [facility] [place] [facility] [address] [id number] [place] [address]- 2647 Apr, [facility] [place] [facility] [address] [id number] [place] [address]- 0643 Apr, [facility] [place] [facility] [address] [id number] [place] [address]- 0003 Apr, [facility] [place] [facility] [address] [id number] [place] [address]- 1717 Apr, [facility] [place] [facility] [address] [id number] [place] [address]- 1433 Apr, [facility] [place] [facility] [address] [id number] [place] [address]- 2437 Apr, [facility] [place] [facility] [address] [id number] [place] [address]- 4199 Apr, [facility] [place] [facility] [address] [id number] [place] [address]- 1026 Mar, [facility] [place] [facility] [address] [id number] [place] [address]- 4310 Mar, [facility] [place] [facility] [address] [id number] [place] [address]- 8793 Mar, [facility] [place] [facility] [address] [id number] [place] [address]- 6185 Mar, [facility] [place] [facility] [address] [id number] [place] [address]- 5363 Feb, [facility] [place] [facility] [address] [id number] [place] [address]- 7953 Feb, [facility] [place] [facility] [address] [id number] [place] [address]- 5185 08 Feb, 2013 [facility] [place] [facility] [address] [id number] [place] [address]- 1192 08 Feb, 2013 [facility] [place] [facility] [address] [id number] [place] [address]- 2327 14 Jan, 2013 [facility] [place] [facility] [address] [id number] [place] [address]- 5726 14 Jan, 2013 [facility] [place] [facility] [address] [id number] [place] [address]- 9840 Jan, [facility] [place] [facility] [address] [id number] [place] [address]- 5361 11 Jan, 2013 [facility] [place] [facility] [address] [id number] [place] [address]- 5755 10 Jan, 2013 [facility] [place] [facility] [address] [id number] [place] [address]- 6768 10 Jan, 2013 [facility] [place] [facility] [address] [id number] [place] [address]- 9772 Jan, [facility] [place] [facility] [address] [id number] [place] [address]- 1395 Jan, [facility] [place] [facility] [address] [id number] [place] [address]- 5183 Jan, [facility] [place] [facility] [address] [id number] [place] [address]- 6374 26 Dec, 2012 [facility] [place] [facility] [address] [id number] [place] [address]- 0093 16 Dec, 2012 [facility] [place] [facility] [address] [id number] [place] [address]- 3956 16 Dec, 2012 [facility] [place] [facility] [address] [id number] [place] [address]- 5776 13 Dec, 2012 [facility] [place] [facility] [address] [id number] [place] [address]- 3515 Nov, [facility] [address] [id number] [place] [address]- 3176 Nov, [facility] [address] [id number] [place] [address]- 8711 Nov, [facility] [address] [id number] [place] [address]- 8600 Nov, [facility] [place] [facility] [address] [id number] [place] [address]- 3577 Oct, [facility] [address] [id number] [place] [address]- 3639 Sep, [facility] [address] [id number] [place] [address]- 6098 August, [facility] [address] [id number] [place] [address]- 8597 August, [facility] [address] [id number] [place] [address]- 3596 August, [facility] [address] [id number] [place] [address]- 8489 August, [facility] [address] [id number] [place] [address]- 8228 August, [facility] [place] [facility] [address] [id number] [place] [address]- 8679 August, [facility] [place] [facility] [address] [id number] [place] [address]- 3491 August, [facility] [place] [facility] [address] [id number] [place] [address]- 5603 August, [facility] [place] [facility] [address] [id number] [place] [address]- 9048 August, [facility] [place] [facility] [address] [id number] [place] [address]- 5771 August, [facility] [place] [facility] [address] [id number] [place] [address]- 8168 08 Aug, 2012 [facility] [address] [id number] [place] [address]- 6176 August, [facility] [address] [id number] [place] [address]- 2404 Jul, [facility] [address] [id number] [place] [address]- 7588 Jul, [facility] [address] [id number] [place] [address]- 2937 Jul, [facility] [address] [id number] [place] [address]- 3150 15 Jul, 2012 [facility] [address] [id number] [place] [address]- 1921 Jul, [facility] [address] [id number] [place] [address]- 3969 Jul, [facility] [address] [id number] [place] [address]- 9683 Jul, [facility] [address] [id number] [place] [address]- 1243 Jul, [facility] [address] [id number] [place] [address]- 4375 Jul, [facility] [address] [id number] [place] [address]- 7548 Jul, [facility] [address] [id number] [place] [address]- 2250 Jul, [facility] [address] [id number] [place] [address]- 9652 Jun, [facility] [place] [facility] [address] [id number] [place] [address]- 4996 Jun, [facility] [address] [id number] [place] [address]- 2134 Jun, [facility] [address] [id number] [place] [address]- 9730 Jun, [facility] [place] [facility] [address] [id number] [place] [address]- 2243 May, [facility] [place] [facility] [address] [id number] [place] [address]- 0356 May, [facility] [place] [facility] [address] [id number] [place] [address]- 6786 May, [facility] [place] [facility] [address] [id number] [place] [address]- 1388 May, [facility] [place] [facility] [address] [id number] [place] [address]- 1801 May, [facility] [place] [facility] [address] [id number] [place] [address]- 6536 May, [facility] [place] [facility] [address] [id number] [place] [address]- 8051 Apr, [facility] [place] [facility] [address] [id number] [place] [address]- 7136 Apr, [facility] [place] [facility] [address] [id number] [place] [address]- 5289 Apr, [facility] [place] [facility] [address] [id number] [place] [address]- 4110 Apr, [facility] [place] [facility] [address] [id number], [place] [address]- 1598 15 Mar, 2012 [facility] [place] [facility] [address] [id number] [place] [address]- 5519 Mar, [facility] [place] [facility] [address] [id number] [place] [address]- 3626 Mar, [facility] [place] [facility] [address] [id number] [place] [address]- 9326 14 Mar, 2012 [facility] [place] [facility] [address] [id number], [place] [address]- 1360 Mar, [facility] [place] [facility] [address] [id number] [place] [address]- 7451 Mar, [facility] [place] [facility] [address] [facility] [id number], [place] [address]- 5303 Mar, [facility] [place] [facility] [address] [facility] [id number] [place] [address]- 1514 Feb, [facility] [place] [facility] [address] [id number] [place] [address]- 2616 Feb, [facility] [place] [facility] [address] [id number] [place] [address], [place] [address]- 2031 Feb, [facility] [place] [facility] [address] [id number] [place] [address]- 4750 Feb, [facility] [place] [facility] [id number], [place] [address]- 3837 Jan, [facility] [place] [facility] [address] [id number], [place] [address]- 2795 Jan, [facility] [place] [facility] [address] [id number], [place] [address]- 1149 Jan, [facility] [place] [facility] [address] [facility] [id number], [place] [address]- 7799 Jan, [facility] [place] [facility] [address] [facility] [id number], [place] [address]- 3963 Jan, [facility] [place] [facility] [address] [facility] [id number], [place] [address]- 8113 Jan, [facility] [place] [facility] [address] [id number], [place] [address]- 1346 Dec, [facility] [place] [facility] [address] [facility] [id number][place] 3339 Dec, [facility] [place] [facility] [address] [id number], [place] [address]- 3017 Nov, [facility] [place] [facility] [address] [id number] [place] [address]- 6794 Sep, [facility] [place] [facility] [address] [id number] [place] [address]- 5030 August, [facility] [place] [facility] [address] [id number] [place] [address]- 4446 August, [facility] [place] [facility] [address] [id number] [place] [address]- 4042 August, [facility] [place] [facility] [address] [id number] [place] [address]- 8055 August, [facility] [place] [facility] [address] [id number] [place] [address]- 4709 August, [facility] [place] [facility] [address] [id number] [place] [address]- 4234 Jun, [facility] [place] [facility] [address] [id number] [place] [address]- 9295 Jun, [facility] [place] [facility] [address] [id number] [place] [address]- 4657 Apr, [facility] [place] [facility] [address] [id number] [place] [address]- 9971 Apr, [facility] [place] [facility] [address] [id number] [place] [address]- 8300 Mar, [facility] [place] [facility] [address] [id number] [place] [address]- 1487 22 Feb, 2011 [facility] [place] [facility] [address] [id number] [place] [address] 14 Feb, 2011 [facility] [place] [facility] [address] [id number] [place] [address] 14 Feb, 2011 [facility] [place] [facility] [address] [id number] [place] [address] 17 Jan, 2011 [facility] [place] [facility] [address] [id number] [place] [address] Jan, [facility] [address] [id number] [address] 15 Jan, 2011 [facility] [id number] [address] Jan, [facility] [id number] [place] [address] May, [facility] [id number] [place] [address] Mar, [facility] [id number] [place] [address] Oct, [facility] [id number] [place] [address] Sep, [facility] [id number] [place] [address] Mar, [facility] [id number] [place] [address] Jan, [facility] [id number] [address] Jan, [facility] [id number] [address] May, IMMUNIZATIONS No Known Immunizations SOCIAL HISTORY Never Assessed REASON FOR VISIT Controlled Med Refill PLAN OF CARE VITAL SIGNS MEDICATIONS Unknown Medications RESULTS No Results PROCEDURES No Known procedures INSTRUCTIONS MEDICATIONS ADMINISTERED No Known Medications MEDICAL (GENERAL) HISTORY Type Description Date Medical History hypertension Medical History Colposcopy with loop electrode excision of the cervix was performed 06/2012, mild squamous atypia (no definite dyplasia). Performed at [facility] Dr. Joy. Medical History Acute suppurative [...]
--- OUTSIDE RECORDS SUMMARY | 2018-06-10 04:51 | XMS REPORT ---
Author Author BETI STAUFFER [facility] Address [address] [place] [address] Care Team Providers Care Claims Technician Name Role Phone JULIENNE STAUFFERTA Unavailable PROBLEMS Type Condition ICD9-CM Code TBW93-XO Code Onset Dates Condition Status SNOMED Code Problem Hematuria, unspecified type R31.9 Active 98485280 Problem Anxiety F41.9 Active 45804313 Problem Abnormal renal ultrasound R93.429 Active [id number] Problem Abnormal glucose R73.09 Active 852316439 Problem 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 Active 212560850 Problem Hypokalemia E87.6 Active 41056725 Problem Neck pain M54.2 Active 23620548 Problem Neuroforaminal stenosis of spine M99.89 Active 344588273971 Problem Mixed hyperlipidemia E78.2 Active 84931552 Problem Essential hypertension I10 Active 36482066 ALLERGIES No Information ENCOUNTERS Encounter Location Date Diagnosis [facility] [address] [address]- [address] Dec, [facility] [id number] [place] [address] 67319- 6145 Dec, Abnormal glucose R73.09 ; Abnormal renal ultrasound R93.429 ; Dysuria R30.0 ; Cystitis without hematuria N30.90 ; Hypokalemia E87.6 ; Mixed hyperlipidemia E78.2 and Hematuria, unspecified type R31.9 [facility] [id number] [place] [address] 02352- 6643 Nov, Hypokalemia E87.6 ; Mixed hyperlipidemia E78.2 and Hematuria , unspecified type R31.9 [facility] [id number] [place] [address] 45715- 3893 Nov, [facility] [address] [place] [address]- 3893 Nov, Hypokalemia E87.6 [place] [address] 35225- 2100 Nov, [facility] [id number] [place] [address] 86708- 2912 Nov, Abnormal renal ultrasound R93.429 [place] [address] 20765- 5388 Nov, Abnormal renal ultrasound R93.429 [place] [address] 02026- 4394 Nov, Hematuria, unspecified type R31.9 and Neuroforaminal stenosis of spine M99.89 [place] [address] 93268- 5086 Nov, Dysuria R30.0 [place] [address] 98960- 8384 Oct, Lateral epicondylitis, right elbow M77.11 [place] [address] 73923- 6441 Oct, Neuroforaminal stenosis of spine M99.89 ; Visit for TB skin test Z11.1 and Essential hypertension I10 [place] [id number] [place] [address] 07230- 4705 Oct, [place] [address] 32440- 3808 Oct, Neuroforaminal stenosis of spine M99.89 [place] [address] 35855- 2278 Oct, Visit for TB skin test Z11.1 [facility] [id number] [place] [address] 20765- 5219 05 Oct, 2017 Cystitis without hematuria N30.90 [place] [address] [place] [address]- 3110 Sep, Screening breast examination Z12.39 [place] [address] 86631- 2218 Sep, Dysuria R30.0 and Cystitis without hematuria N30.90 [place] [address] 60721- 2390 14 Sep, 2017 Essential hypertension I10 and Neuroforaminal stenosis of spine M99.89 [place] [address] 70098- 1354 Sep, Abnormal glucose R73.09 [place] [address] 76091- 8011 August, Lateral epicondylitis, right elbow M77.11 [place] [address] 64645- 1949 August, Screen for STD (sexually transmitted disease) Z11.3 [place] [address] 77552- 9661 August, Neuroforaminal stenosis of spine M99.89 ; Mixed hyperlipidemia E78.2 ; Elevated fasting glucose R73.01 ; Screening mammogram, encounter for Z12.31 and Encounter for well woman exam without gynecological exam Z00.00 [place] [id number] [place] [address] 90620- 5889 August, Neuroforaminal stenosis of spine M99.89 [place] [id number] [place] [address] 62290- 1165 August, Essential hypertension I10 ; Hypokalemia E87.6 and Mixed hyperlipidemia E78.2 [place] [address] 94714- 3051 Jul, [place] [id number] [place] [address] 27696- 2936 Jul, Neuroforaminal stenosis of spine M99.89 [place] [id number] [place] [address] 91465- 0568 Jul, Lateral epicondylitis, right elbow M77.11 [place] [id number] [place] [address] 80508- 2271 Jul, [facility] [id number] [place] [address] 64984- 8213 Jun, High ankle sprain of right lower extremity, initial encounter S93.431A [place] [address] 92916- 2670 Jun, Essential hypertension I10 [place] [address] 14789- 9645 Jun, [place] [id number] [place] [address] 31686- 0669 Jun, [place] [address] 58032- 4970 Jun, Neuroforaminal stenosis of spine M99.89 [place] [id number] [place] [address] 35773- 4305 Jun, Pain of right upper extremity M79.601 and Essential hypertension I10 [place] [id number] [place] [address] 18139- 2806 Jun, [place] [id number] [place] [address] 83597- 1642 Jun, Dysuria R30.0 ; Acute cystitis with hematuria N30.01 and Screen for STD (sexually transmitted disease) Z11.3 [place] [id number] [place] [address] 02131- 4792 May, 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 [place] [id number] [place] [address] 84882- 0730 May, Essential hypertension I10 [place] [address] 04796- 5552 May, Neuroforaminal stenosis of spine M99.89 [place] [id number] [place] [address] 85327- 8384 Apr, Allergic reaction, initial encounter T78.40XA [place] [id number] [place] [address] 76494- 6908 Apr, Low back pain, unspecified back pain laterality, unspecified chronicity, with sciatica presence unspecified M54.5 ; Acute cystitis with hematuria N30.01 ; Neuroforaminal stenosis of spine M99.89 ; Bilateral acute serous otitis media, recurrence not specified H65.03 ; Mixed hyperlipidemia E78.2 ; Essential hypertension I10 ; Immunization counseling Z71.89 and Encounter for immunization Z23 [place] [id number] [place] [address] 80984- 0301 Apr, Neck pain M54.2 [place] [address] 38975- 2547 Mar, Neuroforaminal stenosis of spine M99.89 [place] [id number] [place] [address] 17254- 0445 Mar, Pharyngitis due to other organism J02.8 [place] [id number] [place] [address] 91516- 3626 Feb, Neuroforaminal stenosis of spine M99.89 [place] [id number] [place] [address] 46682- 3179 08 Feb, 2017 UTI (urinary tract infection) N39.0 [place] [id number] [place] [address] 74154- 5399 07 Feb, 2017 Recent urinary tract infection Z87.440 ; Neuroforaminal stenosis of spine M99.89 ; Neck pain M54.2 ; 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 and Recurrent UTI N39.0 [place] [id number] [place] [address] 15263- 3039 Feb, [place] [id number] [place] [address] 96374- 8711 Jan, Neuroforaminal stenosis of spine M99.89 [place] [id number] [place] [address] 47643- 0048 Dec, Neuroforaminal stenosis of spine M99.89 [place] [id number] [place] [address] 21654- 9599 18 Dec, 2016 Acute seasonal allergic rhinitis due to pollen J30.1 [place] [id number] [place] [address] 49829- 1962 08 Dec, 2016 [place] [address] 53275- 9837 08 Dec, 2016 Acute seasonal allergic rhinitis, unspecified trigger J30.2 ; Allergic conjunctivitis of both eyes H10.13 and Dysfunction of both eustachian tubes H69.83 [place] [id number] [place] [address] 94040- 7488 Dec, [place] [id number] [place] [address] 47310- 8534 Dec, Nevus D22.9 [place] [id number] [place] [address] 18178- 7366 Nov, 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 and Neuroforaminal stenosis of spine M99.89 [place] [id number] [place] [address] 25909- 6609 Nov, Neuroforaminal stenosis of spine M99.89 ; Essential hypertension I10 ; Mixed hyperlipidemia E78.2 ; Hypokalemia E87.6 ; Neck pain M54.2 and Nevus D22.9 [place] [id number] [place] [address] 16978- 0355 Oct, Neuroforaminal stenosis of spine M99.89 [place] [id number] [place] [address] 33164- 9608 Sep, Neuroforaminal stenosis of spine M99.89 [facility] [address] [facility] [id number] [address]- 7506 Sep, [facility] [address] [facility] [id number] [place] [address]- 3656 August, [facility] [address] [facility] [id number] [place] [address] 98358- 0416 August, Neck pain M54.2 and Neuroforaminal stenosis of spine M99.89 [facility] [address] [facility] [id number] [place] [address] 17979- 2959 August, Routine gynecological examination Z01.419 and Screening breast examination Z12.39 [facility] [address] [facility] [id number] [place] [address] 09996- 3550 Jul, [facility] [id number] [place] [address] 15243- 2205 Jul, [facility] [id number] [place] [address] 93332- 6655 Jul, Neuroforaminal stenosis of spine M99.89 [facility] [id number] [place] [address] 17032- 4659 Jul, [facility] [address] [id number] [address]- 1903 Jul, 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 [facility] [address] [facility] [id number] [place] [address]- 2891 Jul, [facility] [address] [facility] [id number] [place] [address]- 2126 Jul, [facility] [address] [facility] [id number] [place] [address] 88520- 254 Jun, Neuroforaminal stenosis of spine M99.89 [facility] [address] [facility] [id number] [place] [address]- 7136 Jun, Uterine leiomyoma, unspecified location D25.9 and Allergic reaction caused by a drug, initial encounter T78.40XA [place] [id number] [place] [address] 78021- 4781 Jun, [place] [id number] [place] [address] 23509- 7090 May, UTI symptoms R39.9 and Pain of right sacroiliac joint M53.[address] 02793- 1428 May, Neuroforaminal stenosis of spine M99.[address] 82884- 1045 May, [address] 29051- 6187 May, Acute mucoid otitis media of left ear H65.112 and Acute non- recurrent maxillary sinusitis J01.00 [place] [id number] [place] [address] 54157- 7633 May, Acute bacterial conjunctivitis of both eyes H10.33 ; Left arm pain M79.602 and Hypokalemia E87.6 [place] [id number] [place] [address] 29491- 8545 Apr, [place] [id number] [place] [address] 80150- 7629 Apr, Neuroforaminal stenosis of spine M99.89 ; Neck pain M54.2 ; 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 ; Mixed hyperlipidemia E78.2 ; Essential hypertension I10 and Hypokalemia E87.6 [place] [id number] [place] [address] 31987- 0340 Mar, Oral candidiasis B37.0 ; Neuroforaminal stenosis of spine M99.89 ; Neck pain M54.2 and 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 [place] [id number] [place] [address]- 0890 Feb, [facility] [id number] [place] [address] 52002- 4196 Feb, [facility] [id number] [place] [address] 42085- 9156 Feb, UTI (urinary tract infection) N39.0 [facility] [address] 21495- 6558 Feb, Dysuria R30.0 [facility] [id number] [place] [address] 44589- 3160 Feb, Dysuria R30.0 [facility] [id number] [place] [address] 09397- 0359 Feb, Neuroforaminal stenosis of spine M99.89 ; Neck pain M54.2 ; Essential hypertension I10 ; 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 ; Dysuria R30.0 ; Abnormal MRI, shoulder R93.8 and Acute cystitis without hematuria N30.00 [facility] [id number] [place] [address] 94093- 6052 Jan, [facility] [id number] [place] [address] 63000- 6144 Jan, [facility] [id number] [place] [address] 75153- 0584 Jan, [facility] [id number] [place] [address] 54432- 5885 Jan, Abnormal MRI R93.8 [facility] [id number] [place] [address] 66402- 2375 29 Dec, 2015 [facility] [id number] [place] [address] 30018 -2207 Dec, Acute pain of left shoulder M25.512 [facility] [id number] [place] [address] 10962- 7412 Dec, [facility] [address] [address]- 2060 Dec, [facility] [id number] [place] [address] 61545- 3312 Dec, Acute pain of left shoulder M25.512 [facility] [address] [address]- 0734 Nov, [facility] [id number] [place] [address] 48100- 6647 Nov, Neuroforaminal stenosis of spine M99.89 ; Neck pain M54.2 ; Abnormal mammogram R92.8 ; Essential hypertension I10 and 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 [facility] [address] [address]- 7413 Nov, [facility] [id number] [place] [address] 72054- 7160 Oct, Acute stress disorder F43.0 [facility] [id number] [place] [address] 56845- 1980 Oct, [facility] [id number] [place] [address] 39080- 3447 Oct, [facility] [address] [address]- 3309 Oct, [facility] [id number] [place] [address]- 6231 Sep, [facility] [address] [address]- 4536 August, [facility] [id number] [place] [address] 24489- 6053 Jul, Neuroforaminal stenosis of spine M99.89 ; Neck pain M54.2 ; Abnormal mammogram R92.8 and Essential hypertension I10 [facility] [id number] [place] [address] 90313- 8861 Jul, [facility] [address] [address] 2546 Jul, [facility] [id number] [place] [address] 89723 2546 Jul, Abnormal mammogram R92.8 [facility] [id number] [place] [address] 62797 2546 Jul, [facility] [id number] [place] [address] 69689 2540 Jul, UTI (urinary tract infection) N39.0 [facility] [id number] [place] [address] 80290- 5599 Jul, Dysuria R30.0 [facility] [id number] [place] [address] 08779- 5676 Jun, [facility] [id number] [place] [address] 39133- 7996 Jun, [facility] [id number] [place] [address] 77847 2543 Jun, Hypokalemia E87.6 and Hematuria R31.9 [facility] [id number] [place] [address] 93418 2546 Jun, Hypokalemia E87.6 [facility] [id number] [place] [address] 06424 2546 Jun, [facility] [id number] [place] [address] 64260 2546 18 Jun, 2015 Hypokalemia E87.6 [facility] [id number] [place] [address] 86736 2546 18 Jun, 2015 Hypokalemia E87.6 [facility] [address] [address] 2546 15 Jun, 2016 Neuroforaminal stenosis of spine M99.89 ; Hypokalemia E87.6 ; Neck pain M54.2 ; Essential hypertension I10 ; Mixed hyperlipidemia E78.2 and Screening breast examination Z12.[address] 84357- 1192 Jun, Dysuria R30.0 ; UTI (urinary tract infection) N39.0 and Hematuria R31.[address] 75049- 2527 May, [place] [address] 71676- 6120 May, High risk sexual behavior Z72.51 ; Hypokalemia E87.6 ; Neuroforaminal stenosis of spine M99.89 ; Neck pain M54.2 ; Essential hypertension I10 ; Mixed hyperlipidemia E78.2 ; STD exposure Z20.2 and Concern about STD in female without diagnosis Z71.[address] 90059- 4140 16 May, 2015 Neuroforaminal stenosis of spine M99.89 ; Neck pain M54.2 ; Hypokalemia E87.6 ; Essential hypertension I10 and Mixed hyperlipidemia E78.2 [place] [id number] [place] [address] 00312- 4673 May, [facility] [id number] [place] [address] 15157 -7172 08 May, 2015 High risk sexual behavior Z72.51 ; STD exposure Z20.2 and Concern about STD in female without diagnosis Z71.1 [place] [id number] [place] [address] 97505- 5549 May, [address] 70416- 7915 Apr, Neuroforaminal stenosis of spine M99.89 ; Mixed hyperlipidemia E78.2 ; Essential hypertension I10 and Hypokalemia E87.[address] 89196- 5784 Mar, [place] [id number] [place] [address] 40892- 7093 Mar, Hypokalemia E87.6 [place] [id number] [place] [address] 93831- 8835 Mar, Neuroforaminal stenosis of spine M99.89 ; Mixed hyperlipidemia E78.2 ; Neck pain M54.2 ; Essential hypertension I10 ; Abnormal fasting glucose R73.09 ; Hypokalemia E87.6 and Constipation K59.00 [place] [id number] [place] [address] 81562- 9039 Feb, Neuroforaminal stenosis of spine M99.89 ; Mixed hyperlipidemia E78.2 ; Neck pain M54.2 ; Essential hypertension I10 ; Abnormal fasting glucose R73.09 ; Hypokalemia E87.6 and Constipation K59.00 [place] [id number] [place] [address] 38421- 7138 Feb, Elevated fasting blood sugar R73.01 [place] [id number] [place] [address] 47448- 0808 Feb, Elevated fasting blood sugar R73.01 [place] [id number] [place] [address] 04073- 3765 Feb, Hair loss L65.9 [place] [id number] [place] [address] 38804- 0577 Feb, Sinusitis J32.9 ; Essential hypertension I10 and Hair loss L65.9 [place] [id number] [place] [address] 45065- 6924 Jan, [place] [id number] [place] [address] 63064- 9486 Jan, Essential hypertension I10 ; Neuroforaminal stenosis of spine M99.89 ; Neck pain M54.2 ; Mixed hyperlipidemia E78.2 and Anxiety F41.9 [place] [id number] [place] [address] 92114- 2541 Jan, [facility] [id number] [place] [address] 83338- 6180 Jan, Mixed hyperlipidemia E78.2 ; Essential (primary) hypertension I10 ; Strain of muscle, fascia and tendon at neck level, subsequent encounter S16.1XXD and Tension-type headache, unspecified, not intractable G44.209 [place] [id number] [place] [address] 39607- 5254 Dec, Lumbar back pain 724.2 and Neuroforaminal stenosis of spine 724.00 [place] [id number] [place] [address] 16877- 6854 Nov, [place] [id number] [place] [address] 71734- 1669 Nov, Lumbar back pain 724.2 and Neuroforaminal stenosis of spine 724.00 [place] [id number] [place] [address] 09254- 6153 Nov, Edema 782.3 ; Lumbar back pain 724.2 ; Essential hypertension, benign 401.1 ; Hyperlipemia 272.4 ; Neuroforaminal stenosis of spine 724.00 and Post-concussion headache 339.20 [place] [id number] [place] [address] 05789- 2419 Nov, [place] [id number] [place] [address] 31028- 8348 Nov, [facility] [id number] [place] [address] 97419- 7169 Oct, Essential hypertension, benign 401.1 [place] [id number] [place] [address] 69146- 9236 Oct, Edema 782.3 ; Lumbar back pain 724.2 ; Essential hypertension, benign 401.1 ; Hyperlipemia 272.4 ; Neuroforaminal stenosis of spine 724.00 and Post-concussion headache 339.20 [facility] [id number] [place] [address] Oct, [facility] [address] [place] [place] [id number] [place] [address] [phone]- [phone] Oct, Edema 782.3 [facility] [id number] [place] [address] [id number]- [phone] Oct, Lumbar back pain 724.2 [facility] [id number] [place] [address] [phone]- 1381 Oct, Cervicalgia 723.1 ; Lumbar back pain 724.2 and High risk medication use V58.69 [facility] [id number] [place] [address] 60423- 1237 Sep, [facility] [id number] [place] [address] 34579- 9166 Sep, Lumbar strain 847.2 [facility] [id number] [place] [address] 06658- 4194 August, Edema 782.3 and Eustachian tube dysfunction 381.81 [facility] [id number] [place] [address] 09618- 1330 August, [facility] [id number] [place] [address] 15421- 5208 August, Eustachian tube dysfunction 381.81 [facility] [id number] [place] [address] 06252- 1257 Jul, Otalgia 388.70 and Otitis media 382.9 [facility] [id number] [place] [address] [phone]- 2389 Jul, [facility] [id number] [place] [address] [id number]- [phone] Jul, [facility] [id number] [place] [address] 48047- 3003 Jul, [facility] [place] [facility] [address] [facility] [id number] [place] [address] 14 Jul, 2014 [facility] [place] [facility] [address] [id number] [place] [address] 13 Jul, 2014 [facility] [place] [facility] [address] [id number] [place] [address] 2432 27 Jun, 2014 [facility] [place] [facility] [address] [id number] [place] [address] 6096 27 Jun, 2014 [facility] [place] [facility] [address] [facility] [id number] [place] [address] 0[address] 16 Jun, 2014 [facility] [place] [facility] [address] [id number] [place] [address] 6742 May, 2014 [facility] [place] [facility] [address] [facility] [id number] [place] [address]- 3110 May, 2014 [facility] [place] [facility] [address] [facility] [id number] [place] [address]- 3933 23 May, 2014 [facility] [place] [facility] [address] [facility] [id number] [place] [address]- 7085 May, 2014 [facility] [place] [facility] [address] [facility] [id number] [place] [address] 6026 May, 2014 [facility] [place] [facility] [address] [facility] [id number] [place] [address] 3096 May, 2014 [facility] [place] [facility] [address] [facility] [id number] [place] [address] 09 May, 2014 [facility] [place] [facility] [address] [facility] [id number] [place] [address] 1572 May, 2014 [facility] [place] [facility] [address] [facility] [id number] [place] [address]- 0989 05 May, 2014 [facility] [place] [facility] [address] [facility] [id number] [place] [address] 9557 03 May, 2014 [facility] [place] [facility] [address] [facility] [id number] [place] [address]- 3607 Apr, [facility] [address] [id number] [place] [address] 8156 Apr, [facility] [place] [facility] [address] [id number] [place] [address]- 8493 Apr, [facility] [place] [facility] [address] [id number] [place] [address]- 7107 Apr, [facility] [place] [facility] [address] [id number] [place] [address]- 0656 Apr, [facility] [place] [facility] [address] [id number] [place] [address]- 9432 Apr, [facility] [place] [facility] [address] [id number] [place] [address]- 6682 Apr, [facility] [place] [facility] [address] [id number] [place] [address]- 1276 Apr, [facility] [place] [facility] [address] [id number] [place] [address]- 9223 Apr, [facility] [place] [facility] [address] [id number] [place] [address]- 7166 Apr, [facility] [place] [facility] [address] [facility] [id number] [place] [address]- 7989 Apr, [facility] [place] [facility] [address] [id number] [place] [address]- 9638 Apr, [facility] [place] [facility] [address] [id number] [place] [address]- 0976 Apr, [facility] [place] [facility] [address] [id number] [place] [address]- 3120 Apr, [facility] [place] [facility] [address] [id number] [place] [address]- 9280 Apr, [facility] [place] [facility] [address] [id number] [place] [address]- 2014 Mar, [facility] [place] [facility] [address] [id number] [place] [address]- 8572 Mar, [facility] [place] [facility] [address] [id number] [place] [address]- 1414 Mar, [facility] [place] [facility] [address] [id number] [place] [address]- 6178 Mar, [facility] [place] [facility] [address] [id number] [place] [address]- 2653 Feb, [facility] [place] [facility] [address] [id number] [place] [address]- 2275 Feb, [facility] [place] [facility] [address] [id number] [place] [address]- 6518 Feb, [facility] [place] [facility] [address] [id number] [place] [address]- 0386 Feb, [facility] [place] [facility] [address] [id number] [place] [address]- 2421 Jan, [facility] [place] [facility] [address] [id number] [place] [address]- 4342 Jan, [facility] [place] [facility] [address] [id number] [place] [address]- 2822 Jan, [facility] [place] [facility] [address] [id number] [place] [address] Jan, [facility] [place] [facility] [address] [id number] [place] [address]- 3938 Jan, [facility] [place] [facility] [address] [id number] [place] [address]- 2345 Jan, [facility] [place] [facility] [address] [id number] [place] [address]- 5265 Jan, [facility] [place] [facility] [address] [id number] [place] [address]- 5301 Jan, [facility] [place] [facility] [address] [id number] [place] [address]- 4606 Dec, 2013 [facility] [place] [facility] [address] [id number] [place] [address]- 2035 Dec, 2013 [facility] [place] [facility] [address] [id number] [place] [address]- 5994 Dec, [facility] [place] [facility] [address] [id number] [place] [address]- 6454 Dec, [facility] [place] [facility] [address] [id number] [place] [address]- 0960 Oct, [facility] [place] [facility] [address] [id number] [place] [address]- 4264 Oct, [facility] [place] [facility] [address] [id number] [place] [address]- 2334 Oct, [facility] [place] [facility] [address] [id number] [place] [address]- 3842 Oct, [facility] [place] [facility] [address] [id number] [place] [address]- 4978 Oct, [facility] [place] [facility] [address] [id number] [place] [address]- 3773 Oct, [facility] [place] [facility] [address] [id number] [place] [address]- 8729 Oct, [facility] [place] [facility] [address] [id number] [place] [address]- 5862 Oct, [facility] [place] [facility] [address] [id number] [place] [address]- 7125 Sep, [facility] [place] [facility] [address] [id number] [place] [address]- 2301 Sep, [facility] [place] [facility] [address] [id number] [place] [address]- 5129 Sep, [facility] [place] [facility] [address] [id number] [place] [address]- 1928 Sep, [facility] [place] [facility] [address] [id number] [place] [address]- 7164 Sep, [facility] [place] [facility] [address] [id number] [place] [address]- 2109 Sep, [facility] [place] [facility] [address] [id number] [place] [address]- 3014 Sep, [facility] [place] [facility] [address] [id number] [place] [address]- 5588 Sep, [facility] [place] [facility] [address] [id number] [place] [address]- 7377 Sep, [facility] [place] [facility] [address] [id number] [place] [address]- 9758 Sep, [facility] [place] [facility] [address] [id number] [place] [address]- 9455 August, [facility] [place] [facility] [address] [id number] [place] [address]- 8110 August, [facility] [place] [facility] [address] [id number] [place] [address]- 9263 August, [facility] [place] [facility] [address] [id number] [place] [address]- 9030 August, [facility] [place] [facility] [address] [id number] [place] [address]- 6765 August, [facility] [place] [facility] [address] [id number] [place] [address]- 2860 August, [facility] [place] [facility] [address] [id number] [place] [address]- 7304 August, [facility] [place] [facility] [address] [id number] [place] [address]- 1237 August, [facility] [place] [facility] [address] [id number] [place] [address]- 7475 August, [facility] [place] [facility] [address] [id number] [place] [address]- 0373 August, [facility] [place] [facility] [address] [id number] [place] [address]- 3557 August, [facility] [place] [facility] [address] [id number] [place] [address]- 2151 August, [facility] [place] [facility] [address] [id number] [place] [address]- 3746 Jul, [facility] [place] [facility] [address] [id number] [place] [address]- 5173 Jul, [facility] [place] [facility] [address] [id number] [place] [address]- 6351 Jul, [facility] [place] [facility] [address] [id number] [place] [address]- 3145 Jul, [facility] [place] [facility] [address] [id number] [place] [address]- 5588 Jul, [facility] [place] [facility] [address] [id number] [place] [address]- 4693 Jul, [facility] [place] [facility] [address] [id number] [place] [address]- 5225 Jun, [facility] [place] [facility] [address] [id number] [place] [address]- 0418 Jun, [facility] [place] [facility] [address] [id number] [place] [address]- 6461 May, [facility] [place] [facility] [address] [id number] [place] [address]- 1768 May, [facility] [place] [facility] [address] [id number] [place] [address]- 3611 Apr, [facility] [place] [facility] [address] [id number] [place] [address]- 6472 Apr, [facility] [place] [facility] [address] [id number] [place] [address]- 4871 Apr, [facility] [place] [facility] [address] [id number] [place] [address]- 6293 Apr, [facility] [address] [id number] [place] [address]- 0575 Apr, [facility] [place] [facility] [address] [id number] [place] [address]- 6527 Apr, [facility] [place] [facility] [address] [id number] [place] [address]- 4455 Apr, [facility] [place] [facility] [address] [id number] [place] [address]- 4576 Apr, [facility] [place] [facility] [address] [id number] [place] [address]- 0342 Apr, [facility] [place] [facility] [address] [id number] [place] [address]- 8580 Apr, [facility] [place] [facility] [address] [id number] [place] [address]- 4390 Apr, [facility] [place] [facility] [address] [id number] [place] [address]- 1259 Apr, [facility] [place] [facility] [address] [id number] [place] [address]- 6613 Apr, [facility] [place] [facility] [address] [id number] [place] [address]- 9601 Mar, [facility] [place] [facility] [address] [id number] [place] [address]- 9586 Mar, [facility] [place] [facility] [address] [id number] [place] [address]- 6934 Mar, [facility] [place] [facility] [address] [id number] [place] [address]- 2502 Mar, [facility] [place] [facility] [address] [id number] [place] [address]- 3424 Feb, [facility] [place] [facility] [address] [id number] [place] [address]- 9583 Feb, [facility] [place] [facility] [address] [id number] [place] [address]- 8250 08 Feb, 2013 [facility] [place] [facility] [address] [id number] [place] [address]- 1589 08 Feb, 2013 [facility] [place] [facility] [address] [id number] [place] [address]- 9783 14 Jan, 2013 [facility] [place] [facility] [address] [id number] [place] [address]- 1730 14 Jan, 2013 [facility] [place] [facility] [address] [id number] [place] [address]- 5482 Jan, [facility] [place] [facility] [address] [id number] [place] [address]- 9295 11 Jan, 2013 [facility] [place] [facility] [address] [id number] [place] [address]- 6049 10 Jan, 2013 [facility] [place] [facility] [address] [id number] [place] [address]- 7494 10 Jan, 2013 [facility] [place] [facility] [address] [id number] [place] [address]- 1983 Jan, [facility] [place] [facility] [address] [id number] [place] [address]- 8507 Jan, [facility] [place] [facility] [address] [id number] [place] [address]- 6130 Jan, [facility] [place] [facility] [address] [id number] [place] [address]- 7379 26 Dec, 2012 [facility] [place] [facility] [address] [id number] [place] [address]- 3157 16 Dec, 2012 [facility] [place] [facility] [address] [id number] [place] [address]- 5626 16 Dec, 2012 [facility] [place] [facility] [address] [id number] [place] [address]- 9328 13 Dec, 2012 [facility] [place] [facility] [address] [id number] [place] [address]- 4079 Nov, [facility] [address] [id number] [place] [address]- 1214 Nov, [facility] [address] [id number] [place] [address]- 3841 Nov, [facility] [address] [id number] [place] [address]- 9944 Nov, [facility] [place] [facility] [address] [id number] [place] [address]- 4286 Oct, [facility] [address] [id number] [place] [address]- 6728 Sep, [facility] [address] [id number] [place] [address]- 0768 August, [facility] [address] [id number] [place] [address]- 6784 August, [facility] [address] [id number] [place] [address]- 2385 August, [facility] [address] [id number] [place] [address]- 1275 August, [facility] [address] [id number] [place] [address]- 3850 August, [facility] [place] [facility] [address] [id number] [place] [address]- 3264 August, [facility] [place] [facility] [address] [id number] [place] [address]- 8715 August, [facility] [place] [facility] [address] [id number] [place] [address]- 3267 August, [facility] [place] [facility] [address] [id number] [place] [address]- 9703 August, [facility] [place] [facility] [address] [id number] [place] [address]- 8522 August, [facility] [place] [facility] [address] [id number] [place] [address]- 4726 08 Aug, 2012 [facility] [address] [id number] [place] [address]- 9407 August, [facility] [address] [id number] [place] [address]- 5394 Jul, [facility] [address] [id number] [place] [address]- 5922 Jul, [facility] [address] [id number] [place] [address]- 3838 Jul, [facility] [address] [id number] [place] [address]- 3685 15 Jul, 2012 [facility] [address] [id number] [place] [address]- 2261 Jul, [facility] [address] [id number] [place] [address]- 5098 Jul, [facility] [address] [id number] [place] [address]- 1818 Jul, [facility] [address] [id number] [place] [address]- 0402 Jul, [facility] [address] [id number] [place] [address]- 3378 Jul, [facility] [address] [id number] [place] [address]- 8650 Jul, [facility] [address] [id number] [place] [address]- 0825 Jul, [facility] [address] [id number] [place] [address]- 9675 Jun, [facility] [place] [facility] [address] [id number] [place] [address]- 6670 Jun, [facility] [address] [id number] [place] [address]- 1413 Jun, [facility] [address] [id number] [place] [address]- 9816 Jun, [facility] [place] [facility] [address] [id number] [place] [address]- 3973 May, [facility] [place] [facility] [address] [id number] [place] [address]- 0026 May, [facility] [place] [facility] [address] [id number] [place] [address]- 0286 May, [facility] [place] [facility] [address] [id number] [place] [address]- 3470 May, [facility] [place] [facility] [address] [id number] [place] [address]- 0581 May, [facility] [place] [facility] [address] [id number] [place] [address]- 8308 May, [facility] [place] [facility] [address] [id number] [place] [address]- 5072 Apr, [facility] [place] [facility] [address] [id number] [place] [address]- 5218 Apr, [facility] [place] [facility] [address] [id number] [place] [address]- 4855 Apr, [facility] [place] [facility] [address] [id number] [place] [address]- 5592 Apr, [facility] [place] [facility] [address] [id number] [place] [address]- 2184 15 Mar, 2012 [facility] [place] [facility] [address] [id number] [place] [address]- 1872 Mar, [facility] [place] [facility] [address] [id number] [place] [address]- 7366 Mar, [facility] [place] [facility] [address] [id number] [place] [address]- 9164 14 Mar, 2012 [facility] [place] [facility] [address] [id number] [place] [address]- 5075 Mar, [facility] [place] [facility] [address] [id number] [place] [address]- 9813 Mar, [facility] [place] [facility] [address] [facility] [id number] [place] [address]- 8653 Mar, [facility] [place] [facility] [address] [facility] [id number] [place] [address]- 0789 Feb, [facility] [place] [facility] [address] [id number] [place] [address]- 8233 Feb, [facility] [place] [facility] [address] [id number] [place] [address], [place] [address]- 7359 Feb, [facility] [place] [facility] [address] [id number] [place] [address]- 7187 Feb, [facility] [place] [facility] [id number] [place] [address]- 6693 Jan, [facility] [place] [facility] [address] [id number] [place] [address]- 8106 Jan, [facility] [place] [facility] [address] [id number] [place] [address]- 3195 Jan, [facility] [place] [facility] [address] [facility] [id number] [place] [address]- 7976 Jan, [facility] [place] [facility] [address] [facility] [id number] [place] [address]- 0790 Jan, [facility] [place] [facility] [address] [facility] [id number] [place] [address]- 4815 Jan, [facility] [place] [facility] [address] [id number] [place] [address]- 6205 Dec, [facility] [place] [facility] [address] [facility] [id number] [place] 6685 Dec, [facility] [place] [facility] [address] [id number] [place] [address]- 7436 Nov, [facility] [place] [facility] [address] [id number] [place] [address]- 4091 Sep, [facility] [place] [facility] [address] [id number] [place] [address]- 3189 August, [facility] [place] [facility] [address] [id number] [place] [address] August, [facility] [place] [facility] [address] [id number] [place] [address] August, [facility] [place] [facility] [address] [id number] [place] [address] August, [facility] [place] [facility] [address] [id number] [place] [address] August, [facility] [place] [facility] [address] [id number] [place] [address] Jun, [facility] [place] [facility] [address] [id number] [place] [address] Jun, [facility] [place] [facility] [address] [id number] [place] [address] Apr, [facility] [place] [facility] [address] [id number] [place] [address] Apr, [facility] [place] [facility] [address] [id number] [place] [address] Mar, [facility] [place] [facility] [address] [id number] [place] [address] 22 Feb, 2011 [facility] [place] [facility] [address] [id number] [place] [address] 14 Feb, 2011 [facility] [place] [facility] [address] [id number] [place] [address] 14 Feb, 2011 [facility] [place] [facility] [address] [id number] [place] [address] 17 Jan, 2011 [facility] [place] [facility] [address] [id number] [place] [address] Jan, [facility] [address] [id number] [place] [address] 15 Jan, 2011 [facility] [id number] [place] [address] Jan, [facility] [id number] [place] [address] May, [facility] [address] [id number] [address] Mar, [facility] [id number] [place] [address] Oct, [facility] [id number] [place] [address] Sep, [facility] [id number] [place] [address] Mar, [facility] [id number] [place] [address] Jan, [facility] [id number] [place] [address] Jan, [facility] [id number] [place] [address] May, IMMUNIZATIONS No Known Immunizations SOCIAL HISTORY Never Assessed REASON FOR VISIT Refill request PLAN OF CARE VITAL SIGNS MEDICATIONS Medication Instructions Dosage Frequency Start Date End Date Duration Status Hydrocodone-Acetaminophen 5-325 MG Orally 3 -4 times a day prn. must last 4 weeks 1 tablet as needed Oct, 28 days Active RESULTS No Results PROCEDURES No Known procedures INSTRUCTIONS MEDICATIONS ADMINISTERED No Known Medications MEDICAL (GENERAL) HISTORY Type Description Date Medical History hypertension Medical History Colposcopy with loop electrode excision of the cervix was performed 06/2012, mild squamous atypia (no definite dyplasia). Performed at [facility] Dr. Joy. Medical History Acute suppurative [...]
--- OUTSIDE RECORDS SUMMARY | 2018-06-10 04:52 | XMS REPORT ---
Author Author BETI STAUFFER [facility] Address [address] [place] [address] Care Team Providers Care Supply Chain Technician Name Role Phone JULIENNE STAUFFERTA Unavailable PROBLEMS Type Condition ICD9-CM Code [id number] Code Onset Dates Condition Status SNOMED Code Problem Hematuria, unspecified type R31.9 Active 93000586 Problem Anxiety F41.9 Active 12015652 Problem Abnormal renal ultrasound R93.429 Active 95439398126813675 Problem Abnormal glucose R73.09 Active 137239039 Problem 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 Active 984434237 Problem Hypokalemia E87.6 Active 72639997 Problem Neck pain M54.2 Active 63638055 Problem Neuroforaminal stenosis of spine M99.89 Active 340853136435 Problem Mixed hyperlipidemia E78.2 Active 99445308 Problem Essential hypertension I10 Active 15236120 ALLERGIES No Information ENCOUNTERS Encounter Location Date Diagnosis [facility] [address] [address]957- [address] Dec, [facility] [id number] [place] [address] 56458- 7030 Dec, Abnormal glucose R73.09 ; Abnormal renal ultrasound R93.429 ; Dysuria R30.0 ; Cystitis without hematuria N30.90 ; Hypokalemia E87.6 ; Mixed hyperlipidemia E78.2 and Hematuria, unspecified type R31.9 [facility] [id number] [place] [address] 63284- 2362 Nov, Hypokalemia E87.6 ; Mixed hyperlipidemia E78.2 and Hematuria , unspecified type R31.9 [facility] [id number] [place] [address] 31369- 9269 Nov, [facility] [address] [place] [address] 6655 Nov, Hypokalemia E87.6 [facility] [address] 54572- 3511 Nov, [facility] [id number] [place] [address] 95367- 8218 Nov, Abnormal renal ultrasound R93.429 [facility] [facility] [address] 86665- 3487 Nov, Abnormal renal ultrasound R93.429 [facility] [address] 00018- 9102 Nov, Hematuria, unspecified type R31.9 and Neuroforaminal stenosis of spine M99.89 [facility] [facility] [address] 68555- 0514 Nov, Dysuria R30.0 [facility] [address] 43338- 7151 Oct, Lateral epicondylitis, right elbow M77.11 [facility] [facility] [address] 03664- 9127 Oct, Neuroforaminal stenosis of spine M99.89 ; Visit for TB skin test Z11.1 and Essential hypertension I10 [facility] [id number] [place] [address] 50863- 0220 Oct, [facility] [address] 92257- 0313 Oct, Neuroforaminal stenosis of spine M99.89 [facility] [address] 10211- 7760 Oct, Visit for TB skin test Z11.1 [facility] [id number] [place] [address] 14910- 1106 05 Oct, 2017 Cystitis without hematuria N30.90 [facility] [address] [place] [address]- 2255 Sep, Screening breast examination Z12.39 [facility] [address] 45161- 4939 Sep, Dysuria R30.0 and Cystitis without hematuria N30.90 [facility] [facility] [address] 68121- 0607 14 Sep, 2017 Essential hypertension I10 and Neuroforaminal stenosis of spine M99.89 [facility] [address] 49115- 7272 Sep, Abnormal glucose R73.09 [facility] [facility] [address] 62162- 2036 August, Lateral epicondylitis, right elbow M77.11 [place] [address] 84077- 3431 August, Screen for STD (sexually transmitted disease) Z11.3 [facility] [facility] [address] 76422- 8113 August, Neuroforaminal stenosis of spine M99.89 ; Mixed hyperlipidemia E78.2 ; Elevated fasting glucose R73.01 ; Screening mammogram, encounter for Z12.31 and Encounter for well woman exam without gynecological exam Z00.00 [facility] [id number] [place] [address] 90286- 6814 August, Neuroforaminal stenosis of spine M99.89 [facility] [id number] [place] [address] 55295- 0296 August, Essential hypertension I10 ; Hypokalemia E87.6 and Mixed hyperlipidemia E78.2 [facility] [facility] [address] 75987- 7146 Jul, [facility] [id number] [place] [address] 94792- 7948 Jul, Neuroforaminal stenosis of spine M99.89 [facility] [id number] [place] [address] 49340- 3947 Jul, Lateral epicondylitis, right elbow M77.11 [facility] [id number] [place] [address] 73554- 2416 Jul, [facility] [id number] [place] [address] 46472- 2441 Jun, High ankle sprain of right lower extremity, initial encounter S93.431A [place] [address] 57011- 7914 Jun, Essential hypertension I10 [place] [address] 12378- 0793 Jun, [facility] [id number] [place] [address] 87833- 6915 Jun, [facility] [address] 51804- 2247 Jun, Neuroforaminal stenosis of spine M99.89 [facility] [id number] [place] [address] 21050- 7237 Jun, Pain of right upper extremity M79.601 and Essential hypertension I10 [facility] [id number] [place] [address] 89867- 5477 Jun, [facility] [id number] [place] [address] 48957- 8249 Jun, Dysuria R30.0 ; Acute cystitis with hematuria N30.01 and Screen for STD (sexually transmitted disease) Z11.3 [facility] [id number] [place] [address] 45967- 4102 May, 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 [facility] [id number] [place] [address] 88086- 7872 May, Essential hypertension I10 [place] [facility] [address] 10589- 6417 May, Neuroforaminal stenosis of spine M99.89 [facility] [id number] [place] [address] 74352- 4858 Apr, Allergic reaction, initial encounter T78.40XA [facility] [id number] [place] [address] 65309- 2585 Apr, Low back pain, unspecified back pain laterality, unspecified chronicity, with sciatica presence unspecified M54.5 ; Acute cystitis with hematuria N30.01 ; Neuroforaminal stenosis of spine M99.89 ; Bilateral acute serous otitis media, recurrence not specified H65.03 ; Mixed hyperlipidemia E78.2 ; Essential hypertension I10 ; Immunization counseling Z71.89 and Encounter for immunization Z23 [facility] [id number] [place] [address] 59379- 2047 Apr, Neck pain M54.2 [facility] [address] 76835- 4017 Mar, Neuroforaminal stenosis of spine M99.89 [facility] [id number] [place] [address] 13056- 3037 Mar, Pharyngitis due to other organism J02.8 [facility] [id number] [place] [address] 57844- 5108 Feb, Neuroforaminal stenosis of spine M99.89 [facility] [id number] [place] [address] 19363- 9639 08 Feb, 2017 UTI (urinary tract infection) N39.0 [facility] [id number] [place] [address] 71577- 0499 07 Feb, 2017 Recent urinary tract infection Z87.440 ; Neuroforaminal stenosis of spine M99.89 ; Neck pain M54.2 ; 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 and Recurrent UTI N39.0 [facility] [id number] [place] [address] 20746- 6986 Feb, [facility] [id number] [place] [address] 12057- 2403 Jan, Neuroforaminal stenosis of spine M99.89 [facility] [id number] [place] [address] 71376- 1871 Dec, Neuroforaminal stenosis of spine M99.89 [facility] [id number] [place] [address] 07577- 5711 18 Dec, 2016 Acute seasonal allergic rhinitis due to pollen J30.1 [facility] [id number] [place] [address] 48886- 4950 08 Dec, 2016 [facility] [address] 10458- 4052 08 Dec, 2016 Acute seasonal allergic rhinitis, unspecified trigger J30.2 ; Allergic conjunctivitis of both eyes H10.13 and Dysfunction of both eustachian tubes H69.83 [facility] [id number] [place] [address] 58538- 7714 Dec, [facility] [id number] [place] [address] 23019- 2811 Dec, Nevus D22.9 [facility] [id number] [place] [address] 46377- 7618 Nov, 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 and Neuroforaminal stenosis of spine M99.89 [facility] [id number] [place] [address] 62339- 0294 Nov, Neuroforaminal stenosis of spine M99.89 ; Essential hypertension I10 ; Mixed hyperlipidemia E78.2 ; Hypokalemia E87.6 ; Neck pain M54.2 and Nevus D22.9 [facility] [place] [id number] [place] [address] 38858- 8883 Oct, Neuroforaminal stenosis of spine M99.89 [facility] [id number] [place] [address] 51686- 4877 Sep, Neuroforaminal stenosis of spine M99.89 [facility] [address] [facility] [id number], [place] [address]- 2506 Sep, [facility] [address] [facility] [id number], [place] [address]- 9366 August, [facility] [address] [facility] [id number] [place] [address] 66944- 1532 August, Neck pain M54.2 and Neuroforaminal stenosis of spine M99.89 [facility] [address] [facility] [id number] [place] [address] 61693- 9057 August, Routine gynecological examination Z01.419 and Screening breast examination Z12.39 [facility] [address] [facility] [id number] [place] [address] 77080- 1811 Jul, [facility] [id number] [place] [address] 45805- 9824 Jul, [facility] [id number] [place] [address] 01565- 7497 Jul, Neuroforaminal stenosis of spine M99.89 [facility] [id number] [place] [address] 61211- 7259 Jul, [facility] [id number] [address]- 3361 Jul, 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 [facility] [address] [facility] [id number], [place] [address]- 2486 Jul, [facility] [address] [facility] [id number], [place] [address]- 1216 Jul, [facility] [address] [facility] [id number] [place] [address] 90458- 2548 Jun, Neuroforaminal stenosis of spine M99.89 [facility] [address] [facility] [id number], [place] [address]- 4191 Jun, Uterine leiomyoma, unspecified location D25.9 and Allergic reaction caused by a drug, initial encounter T78.40XA [place] [id number] [place] [address] 72802- 1308 Jun, [facility] [id number] [place] [address] 09764- 9017 May, UTI symptoms R39.9 and Pain of right sacroiliac joint M53.[address] 80404- 7455 May, Neuroforaminal stenosis of spine M99.[address] 02159- 9530 May, [address] 42079- 7211 May, Acute mucoid otitis media of left ear H65.112 and Acute non- recurrent maxillary sinusitis J01.00 [id number] [place] [address] 28215- 4502 May, Acute bacterial conjunctivitis of both eyes H10.33 ; Left arm pain M79.602 and Hypokalemia E87.6 [place] [id number] [place] [address] 77212- 9034 Apr, [place] [id number] [place] [address] 19904- 8146 Apr, Neuroforaminal stenosis of spine M99.89 ; Neck pain M54.2 ; 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 ; Mixed hyperlipidemia E78.2 ; Essential hypertension I10 and Hypokalemia E87.6 [place] [id number] [place] [address] 77207- 3723 Mar, Oral candidiasis B37.0 ; Neuroforaminal stenosis of spine M99.89 ; Neck pain M54.2 and 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 [place] [address] [address] [place] [address]- 1724 Feb, [facility] [id number] [place] [address] 03519- 2227 Feb, [facility] [id number] [place] [address] 88894- 7401 Feb, UTI (urinary tract infection) N39.0 [facility] [address] 21731- 3838 Feb, Dysuria R30.0 [facility] [id number] [place] [address] 74739- 6811 Feb, Dysuria R30.0 [facility] [id number] [place] [address] 19193- 4884 Feb, Neuroforaminal stenosis of spine M99.89 ; Neck pain M54.2 ; Essential hypertension I10 ; 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 ; Dysuria R30.0 ; Abnormal MRI, shoulder R93.8 and Acute cystitis without hematuria N30.00 [facility] [id number] [place] [address] 84944- 0914 Jan, [facility] [id number] [place] [address] 64062- 3127 Jan, [facility] [id number] [place] [address] 42413- 5230 Jan, [facility] [id number] [place] [address] 99555- 3397 Jan, Abnormal MRI R93.8 [facility] [address] [place] [address] 95174- 3754 29 Dec, 2015 [facility] [id number] [place] [address] 24866 -4854 Dec, Acute pain of left shoulder M25.512 [facility] [id number] [place] [address] 62343- 9739 Dec, [facility] [address], [place] [address]- 8385 Dec, [facility] [id number] [place] [address] 42145- 4918 Dec, Acute pain of left shoulder M25.512 [facility] [address], [place] [address]- 1811 Nov, [facility] [id number] [place] [address] 44742- 4494 Nov, Neuroforaminal stenosis of spine M99.89 ; Neck pain M54.2 ; Abnormal mammogram R92.8 ; Essential hypertension I10 and 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 [facility] [address], [place] [address]- 5324 Nov, [facility] [id number] [place] [address] 61194- 2862 Oct, Acute stress disorder F43.0 [facility] [address] [place] [address] 84182- 7801 Oct, [facility] [id number] [place] [address] 57360- 0022 Oct, [facility] [address], [place] [address]- 6243 Oct, [facility] [id number] [address]- 0433 Sep, [facility] [address], [place] [address]- 0319 August, [facility] [id number] [place] [address] 18500- 6900 Jul, Neuroforaminal stenosis of spine M99.89 ; Neck pain M54.2 ; Abnormal mammogram R92.8 and Essential hypertension I10 [facility] [address] [place] [address] 06896- 7644 Jul, [facility] [address], [place] [address] 2546 Jul, [facility] [id number] [place] [address] 14107 2546 Jul, Abnormal mammogram R92.8 [facility] [address] [place] [address] 06852 2546 Jul, [facility] [id number] [place] [address] 14731 2547 Jul, UTI (urinary tract infection) N39.0 [facility] [id number] [place] [address] 00789- 0476 Jul, Dysuria R30.0 [facility] [address] [place] [address] 87493- 6476 Jun, [facility] [id number] [place] [address] 65243- 4406 Jun, [facility] [id number] [place] [address] 96889 2547 Jun, Hypokalemia E87.6 and Hematuria R31.9 [facility] [address] [place] [address] 15042 2546 Jun, Hypokalemia E87.6 [facility] [address] [place] [address] 89996 2546 Jun, [facility] [address] [place] [address] 35549 2546 18 Jun, 2015 Hypokalemia E87.6 [facility] [id number] [place] [address] 92538 2546 18 Jun, 2015 Hypokalemia E87.6 [facility] [address], [place] [address] 2546 15 Jun, 2016 Neuroforaminal stenosis of spine M99.89 ; Hypokalemia E87.6 ; Neck pain M54.2 ; Essential hypertension I10 ; Mixed hyperlipidemia E78.2 and Screening breast examination Z12.[address] 03428- 9704 Jun, Dysuria R30.0 ; UTI (urinary tract infection) N39.0 and Hematuria R31.[address] 95785- 6660 May, [place] [address] 18292- 9275 May, High risk sexual behavior Z72.51 ; Hypokalemia E87.6 ; Neuroforaminal stenosis of spine M99.89 ; Neck pain M54.2 ; Essential hypertension I10 ; Mixed hyperlipidemia E78.2 ; STD exposure Z20.2 and Concern about STD in female without diagnosis Z71.[address] 13550- 0648 16 May, 2015 Neuroforaminal stenosis of spine M99.89 ; Neck pain M54.2 ; Hypokalemia E87.6 ; Essential hypertension I10 and Mixed hyperlipidemia E78.2 [id number] [place] [address] 82437- 0915 May, [facility] [id number] [place] [address] 15650 -2349 08 May, 2015 High risk sexual behavior Z72.51 ; STD exposure Z20.2 and Concern about STD in female without diagnosis Z71.1 [facility] [id number] [place] [address] 44643- 5591 May, [address] 80579- 9065 Apr, Neuroforaminal stenosis of spine M99.89 ; Mixed hyperlipidemia E78.2 ; Essential hypertension I10 and Hypokalemia E87.[address] 19105- 2772 Mar, [place] [address] [place] [address] 14499- 7879 Mar, Hypokalemia E87.6 [facility] [id number] [place] [address] 61348- 9105 Mar, Neuroforaminal stenosis of spine M99.89 ; Mixed hyperlipidemia E78.2 ; Neck pain M54.2 ; Essential hypertension I10 ; Abnormal fasting glucose R73.09 ; Hypokalemia E87.6 and Constipation K59.00 [place] [id number] [place] [address] 92192- 4856 Feb, Neuroforaminal stenosis of spine M99.89 ; Mixed hyperlipidemia E78.2 ; Neck pain M54.2 ; Essential hypertension I10 ; Abnormal fasting glucose R73.09 ; Hypokalemia E87.6 and Constipation K59.00 [place] [id number] [place] [address] 09773- 5870 Feb, Elevated fasting blood sugar R73.01 [facility] [id number] [place] [address] 26103- 6629 Feb, Elevated fasting blood sugar R73.01 [facility] [id number] [place] [address] 66222- 5663 Feb, Hair loss L65.9 [facility] [id number] [place] [address] 40672- 7734 Feb, Sinusitis J32.9 ; Essential hypertension I10 and Hair loss L65.9 [place] [id number] [place] [address] 91998- 4817 Jan, [place] [id number] [place] [address] 64817- 9819 Jan, Essential hypertension I10 ; Neuroforaminal stenosis of spine M99.89 ; Neck pain M54.2 ; Mixed hyperlipidemia E78.2 and Anxiety F41.9 [place] [id number] [place] [address] 57165- 2323 Jan, [facility] [id number] [place] [address] 46817- 3283 Jan, Mixed hyperlipidemia E78.2 ; Essential (primary) hypertension I10 ; Strain of muscle, fascia and tendon at neck level, subsequent encounter S16.1XXD and Tension-type headache, unspecified, not intractable G44.209 [place] [id number] [place] [address] 93179- 9631 Dec, Lumbar back pain 724.2 and Neuroforaminal stenosis of spine 724.00 [facility] [id number] [place] [address] 83630- 3944 Nov, [facility] [id number] [place] [address] 16455- 7778 Nov, Lumbar back pain 724.2 and Neuroforaminal stenosis of spine 724.00 [facility] [id number] [place] [address] 37780- 5279 Nov, Edema 782.3 ; Lumbar back pain 724.2 ; Essential hypertension, benign 401.1 ; Hyperlipemia 272.4 ; Neuroforaminal stenosis of spine 724.00 and Post-concussion headache 339.20 [place] [address] [place] [address] 11179- 9993 Nov, [place] [address] [place] [address] 52897- 0437 Nov, [facility] [address] [place] [address] 96377- 9082 Oct, Essential hypertension, benign 401.1 [place] [address] [place] [address] 82443- 1538 Oct, Edema 782.3 ; Lumbar back pain 724.2 ; Essential hypertension, benign 401.1 ; Hyperlipemia 272.4 ; Neuroforaminal stenosis of spine 724.00 and Post-concussion headache 339.20 [facility] [address], [place] [address]- 4980 Oct, [facility] [id number] [place] [address] 68923- 3689 Oct, Edema 782.3 [facility] [id number] [place] [address] 57736- 9467 Oct, Lumbar back pain 724.2 [facility] [id number] [place] [address] 72345- 9142 Oct, Cervicalgia 723.1 ; Lumbar back pain 724.2 and High risk medication use V58.69 [facility] [id number] [place] [address] 03692- 3231 Sep, [facility] [id number] [place] [address] 52778- 1540 Sep, Lumbar strain 847.2 [facility] [id number] [place] [address] 29665- 7880 August, Edema 782.3 and Eustachian tube dysfunction 381.81 [facility] [id number] [place] [address] 26880- 2112 August, [facility] [id number] [place] [address] 38274- 8019 August, Eustachian tube dysfunction 381.81 [facility] [id number] [place] [address] 33303- 4142 Jul, Otalgia 388.70 and Otitis media 382.9 [facility] [id number] [place] [address] 37299- 0423 Jul, [facility] [id number] [place] [address] 17902- 5091 Jul, [facility] [id number] [place] [address] 88846- 4906 Jul, [facility] [place] [facility] [address] [facility] [id number] [place] [address]- 5710 14 Jul, 2014 [facility] [place] [facility] [address] [id number] [place] [address] 13 Jul, 2014 [facility] [place] [facility] [address] [id number] [place] [address] 27 Jun, 2014 [facility] [place] [facility] [address] [id number] [place] [address] 27 Jun, 2014 [facility] [place] [facility] [address] [facility] [id number] [place] [address] 16 Jun, 2014 [facility] [place] [facility] [address] [id number] [place] [address] May, 2014 [facility] [place] [facility] [address] [facility] [id number] [place] [address] May, 2014 [facility] [place] [facility] [address] [facility] [id number] [place] [address]- [address] 23 May, 2014 [facility] [place] [facility] [address] [facility] [id number] [place] [address]- [address] May, 2014 [facility] [place] [facility] [address] [facility] [id number] [place] [address] May, 2014 [facility] [place] [facility] [address] [facility] [id number] [place] [address] 8661 May, 2014 [facility] [place] [facility] [address] [facility] [id number], [place] [address] 09 May, 2014 [facility] [place] [facility] [address] [facility] [id number] [place] [address] May, 2014 [facility] [place] [facility] [address] [facility] [id number] [place] [address]- 79[address] 05 May, 2014 [facility] [place] [facility] [address] [facility] [id number], [place] [address]70 03 May, 2014 [facility] [place] [facility] [address] [facility] [id number], [place] [address] Apr, [facility] [address] [address] [id number] [place] [address] Apr, [facility] [place] [facility] [address] [id number] [place] [address] Apr, [facility] [place] [facility] [address] [id number] [place] [address] 3[address] Apr, [facility] [place] [facility] [address] [id number] [place] [address] 9766 Apr, [facility] [place] [facility] [address] [id number] [place] [address] 6661 Apr, [facility] [place] [facility] [address] [id number] [place] [address]- 6967 Apr, [facility] [place] [facility] [address] [id number] [place] [address] 9215 Apr, [facility] [place] [facility] [address] [id number] [place] [address]- 2270 Apr, [facility] [place] [facility] [address] [id number] [place] [address]23 Apr, [facility] [place] [facility] [address] [facility] [id number] [place] [address]- 9276 Apr, [facility] [place] [facility] [address] [id number] [place] [address]- 1164 Apr, [facility] [place] [facility] [address] [id number], [place] [address] Apr, [facility] [place] [facility] [address] [id number] [place] [address]- 7200 Apr, [facility] [place] [facility] [address] [id number] [place] [address]- 8453 Apr, [facility] [place] [facility] [address] [id number] [place] [address]- 6196 Mar, [facility] [place] [facility] [address] [id number] [place] [address]- 8488 Mar, [facility] [place] [facility] [address] [id number] [place] [address]- 5183 Mar, [facility] [place] [facility] [address] [id number] [place] [address]- 7976 Mar, [facility] [place] [facility] [address] [id number] [place] [address]- 1277 Feb, [facility] [place] [facility] [address] [id number] [place] [address]- 2796 Feb, [facility] [place] [facility] [address] [id number] [place] [address]- 2794 Feb, [facility] [place] [facility] [address] [id number] [place] [address]- 1345 Feb, [facility] [place] [facility] [address] [id number] [place] [address]- 9704 Jan, [facility] [place] [facility] [address] [id number] [place] [address]- 8982 Jan, [facility] [place] [facility] [address] [id number] [place] [address]- 5823 Jan, [facility] [place] [facility] [address] [id number] [place] [address] Jan, [facility] [place] [facility] [address] [id number] [place] [address]- 6622 Jan, [facility] [place] [facility] [address] [id number] [place] [address]- 7326 Jan, [facility] [place] [facility] [address] [id number] [place] [address]- 3794 Jan, [facility] [place] [facility] [address] [id number] [place] [address]- 2117 Jan, [facility] [place] [facility] [address] [id number] [place] [address]- 4279 Dec, 2013 [facility] [place] [facility] [address] [id number] [place] [address]- 3191 Dec, 2013 [facility] [place] [facility] [address] [id number] [place] [address]- 6059 Dec, [facility] [place] [facility] [address] [id number] [place] [address]- 7827 Dec, [facility] [place] [facility] [address] [id number] [place] [address]- 0787 Oct, [facility] [place] [facility] [address] [id number] [place] [address]- 7914 Oct, [facility] [place] [facility] [address] [id number] [place] [address]- 2902 Oct, [facility] [place] [facility] [address] [id number] [place] [address]- 4580 Oct, [facility] [place] [facility] [address] [id number] [place] [address]- 6172 Oct, [facility] [place] [facility] [address] [id number] [place] [address]- 0157 Oct, [facility] [place] [facility] [address] [id number] [place] [address]- 8917 Oct, [facility] [place] [facility] [address] [id number] [place] [address]- 0932 Oct, [facility] [place] [facility] [address] [id number] [place] [address]- 6296 Sep, [facility] [place] [facility] [address] [id number] [place] [address]- 3469 Sep, [facility] [place] [facility] [address] [id number] [place] [address]- 5213 Sep, [facility] [place] [facility] [address] [id number] [place] [address]- 2314 Sep, [facility] [place] [facility] [address] [id number] [place] [address]- 1742 Sep, [facility] [place] [facility] [address] [id number] [place] [address]- 9476 Sep, [facility] [place] [facility] [address] [id number] [place] [address]- 3729 Sep, [facility] [place] [facility] [address] [id number] [place] [address]- 4639 Sep, [facility] [place] [facility] [address] [id number] [place] [address]- 3861 Sep, [facility] [place] [facility] [address] [id number] [place] [address]- 3788 Sep, [facility] [place] [facility] [address] [id number] [place] [address]- 8828 August, [facility] [place] [facility] [address] [id number] [place] [address]- 2423 August, [facility] [place] [facility] [address] [id number] [place] [address]- 2346 August, [facility] [place] [facility] [address] [id number] [place] [address]- 0320 August, [facility] [place] [facility] [address] [id number] [place] [address]- 1301 August, [facility] [place] [facility] [address] [id number] [place] [address]- 6163 August, [facility] [place] [facility] [address] [id number] [place] [address]- 6819 August, [facility] [place] [facility] [address] [id number] [place] [address]- 5001 August, [facility] [place] [facility] [address] [id number] [place] [address]- 8821 August, [facility] [place] [facility] [address] [id number] [place] [address]- 1347 August, [facility] [place] [facility] [address] [id number] [place] [address]- 2925 August, [facility] [place] [facility] [address] [id number] [place] [address]- 4639 August, [facility] [place] [facility] [address] [id number] [place] [address]- 1403 Jul, [facility] [place] [facility] [address] [id number] [place] [address]- 6685 Jul, [facility] [place] [facility] [address] [id number] [place] [address]- 7735 Jul, [facility] [place] [facility] [address] [id number] [place] [address]- 6294 Jul, [facility] [place] [facility] [address] [id number] [place] [address]- 1820 Jul, [facility] [place] [facility] [address] [id number] [place] [address]- 3584 Jul, [facility] [place] [facility] [address] [id number] [place] [address]- 0630 Jun, [facility] [place] [facility] [address] [id number] [place] [address]- 0682 Jun, [facility] [place] [facility] [address] [id number] [place] [address]- 3314 May, [facility] [place] [facility] [address] [id number] [place] [address]- 9348 May, [facility] [place] [facility] [address] [id number] [place] [address]- 0446 Apr, [facility] [place] [facility] [address] [id number] [place] [address]- 9411 Apr, [facility] [place] [facility] [address] [id number] [place] [address]- 7243 Apr, [facility] [place] [facility] [address] [id number], [place] [address]- 9877 Apr, [facility] [address] [id number] [place] [address]- 1702 Apr, [facility] [place] [facility] [address] [id number] [place] [address]- 1424 Apr, [facility] [place] [facility] [address] [id number] [place] [address]- 0734 Apr, [facility] [place] [facility] [address] [id number] [place] [address]- 1778 Apr, [facility] [place] [facility] [address] [id number] [place] [address]- 3404 Apr, [facility] [place] [facility] [address] [id number] [place] [address]- 8249 Apr, [facility] [place] [facility] [address] [id number] [place] [address]- 8012 Apr, [facility] [place] [facility] [address] [id number] [place] [address]- 3027 Apr, [facility] [place] [facility] [address] [id number] [place] [address]- 6405 Apr, [facility] [place] [facility] [address] [id number] [place] [address]- 2661 Mar, [facility] [place] [facility] [address] [id number] [place] [address]- 4720 Mar, [facility] [place] [facility] [address] [id number] [place] [address]- 7776 Mar, [facility] [place] [facility] [address] [id number] [place] [address]- 4244 Mar, [facility] [place] [facility] [address] [id number] [place] [address]- 0012 Feb, [facility] [place] [facility] [address] [id number] [place] [address]- 5757 Feb, [facility] [place] [facility] [address] [id number] [place] [address]- 4079 08 Feb, 2013 [facility] [place] [facility] [address] [id number] [place] [address]- 8260 08 Feb, 2013 [facility] [place] [facility] [address] [id number] [place] [address]- 8414 14 Jan, 2013 [facility] [place] [facility] [address] [id number] [place] [address]- 9078 14 Jan, 2013 [facility] [place] [facility] [address] [id number] [place] [address]- 7530 Jan, [facility] [place] [facility] [address] [id number] [place] [address]- 3206 11 Jan, 2013 [facility] [place] [facility] [address] [id number] [place] [address]- 2764 10 Jan, 2013 [facility] [place] [facility] [address] [id number] [place] [address]- 4972 10 Jan, 2013 [facility] [place] [facility] [address] [id number] [place] [address]- 6459 Jan, [facility] [place] [facility] [address] [id number] [place] [address]- 9189 Jan, [facility] [place] [facility] [address] [id number] [place] [address]- 8106 Jan, [facility] [place] [facility] [address] [id number] [place] [address]- 1227 26 Dec, 2012 [facility] [place] [facility] [address] [id number] [place] [address]- 5551 16 Dec, 2012 [facility] [place] [facility] [address] [id number] [place] [address]- 1356 16 Dec, 2012 [facility] [place] [facility] [address] [id number] [place] [address]- 9850 13 Dec, 2012 [facility] [place] [facility] [address] [id number] [place] [address]- 5308 Nov, [facility] [address] [id number] [place] [address]- 5816 Nov, [facility] [address] [id number] [place] [address]- 2669 Nov[facility] [address] [id number] [place] [address]- 7467 Nov, [facility] [place] [facility] [address] [id number] [place] [address]- 3229 Oct, [facility] [address] [id number] [place] [address]- 7874 Sep, [facility] [address] [id number] [place] [address]- 4865 August, [facility] [address] [id number] [place] [address]- 0922 August, [facility] [address] [id number] [place] [address]- 9856 August, [facility] [address] [id number] [place] [address]- 9771 August, [facility] [address] [id number] [place] [address]- 5479 August, [facility] [place] [facility] [address] [id number] [place] [address]- 3295 August, [facility] [place] [facility] [address] [id number] [place] [address]- 3000 August, [facility] [place] [facility] [address] [id number] [place] [address]- 4960 August, [facility] [place] [facility] [address] [id number] [place] [address]- 6809 August, [facility] [place] [facility] [address] [id number] [place] [address]- 6851 August, [facility] [place] [facility] [address] [id number] [place] [address]- 9052 08 Aug, 2012 [facility] [address] [id number] [place] [address]- 1762 August, [facility] [address] [id number] [place] [address]- 0994 Jul, [facility] [address] [id number] [place] [address]- 4212 Jul, [facility] [address] [id number] [place] [address]- 0251 Jul, [facility] [address] [id number] [place] [address]- 0959 15 Jul, 2012 [facility] [address] [id number] [place] [address]- 5539 Jul, [facility] [address] [id number] [place] [address]- 1641 Jul, [facility] [address] [id number] [place] [address]- 0994 Jul, [facility] [address] [id number] [place] [address]- 6793 Jul, [facility] [address] [id number] [place] [address]- 2243 Jul, [facility] [address] [id number] [place] [address]- 6709 Jul, [facility] [address] [id number] [place] [address]- 3918 Jul, [facility] [address] [id number] [place] [address]- 3881 Jun, [facility] [place] [facility] [address] [id number] [place] [address]- 3071 Jun, [facility] [address] [id number] [place] [address]- 9354 Jun, [facility] [address] [id number] [place] [address]- 2837 Jun, [facility] [place] [facility] [address] [id number] [place] [address]- 9047 May, [facility] [place] [facility] [address] [id number] [place] [address]- 4616 May, [facility] [place] [facility] [address] [id number] [place] [address]- 4466 May, [facility] [place] [facility] [address] [id number] [place] [address]- 0596 May, [facility] [place] [facility] [address] [id number] [place] [address]- 1338 May, [facility] [place] [facility] [address] [id number] [place] [address]- 1708 May, [facility] [place] [facility] [address] [id number] [place] [address]- 7601 Apr, [facility] [place] [facility] [address] [id number] [place] [address]- 2177 Apr, [facility] [place] [facility] [address] [id number] [place] [address]- 5237 Apr, [facility] [place] [facility] [address] [id number] [place] [address]- 4494 Apr, [facility] [place] [facility] [address] [id number], [place] [address]- 8907 15 Mar, 2012 [facility] [place] [facility] [address] [id number] [place] [address]- 8298 Mar, [facility] [place] [facility] [address] [id number] [place] [address]- 6876 Mar, [facility] [place] [facility] [address] [id number] [place] [address]- 5701 14 Mar, 2012 [facility] [place] [facility] [address] [id number], [place] [address]- 4710 Mar, [facility] [place] [facility] [address] [id number] [place] [address]- 0270 Mar, [facility] [place] [facility] [address] [facility] [id number], [place] [address]- 4659 Mar, [facility] [place] [facility] [address] [facility] [id number] [place] [address]- 3374 Feb, [facility] [place] [facility] [address] [id number] [place] [address]- 1990 Feb, [facility] [place] [facility] [id number] [place] [address], [place] [address]- 3671 Feb, [facility] [place] [facility] [address] [id number] [place] [address]- 6214 Feb, [facility] [place] [facility] [id number], [place] [address]- 4323 Jan, [facility] [place] [facility] [address] [id number], [place] [address]- 6340 Jan, [facility] [place] [facility] [address] [id number], [place] [address]- 6305 Jan, [facility] [place] [facility] [address] [facility] [id number], [place] [address]- 4660 Jan, [facility] [place] [facility] [address] [facility] [id number], [place] [address]- 7804 Jan, [facility] [place] [facility] [address] [facility] [id number], [place] [address]- 3045 Jan, [facility] [place] [facility] [address] [id number], [place] [address]- 9737 Dec, [facility] [place] [facility] [address] [facility] [id number] 1507 Dec, [facility] [place] [facility] [address] [id number], [place] [address]- 9649 Nov, [facility] [place] [facility] [address] [id number] [place] [address]- 1140 Sep, [facility] [place] [facility] [address] [id number] [place] [address]- 0889 August, [facility] [place] [facility] [address] [id number] [place] [address]- 1266 August, [facility] [place] [facility] [address] [id number] [place] [address]- 6466 August, [facility] [place] [facility] [address] [id number] [place] [address]- 2437 August, [facility] [place] [facility] [address] [id number] [place] [address]- 5896 August, [facility] [place] [facility] [address] [id number] [place] [address]- 2095 Jun, [facility] [place] [facility] [address] [id number] [place] [address]- 2015 Jun, [facility] [place] [facility] [address] [id number] [place] [address]- 5748 Apr, [facility] [place] [facility] [address] [id number] [place] [address]- 9250 Apr, [facility] [place] [facility] [address] [id number] [place] [address]- 0001 Mar, [facility] [place] [facility] [address] [id number] [place] [address]- 6038 22 Feb, 2011 [facility] [place] [facility] [address] [id number] [place] [address]- 7178 14 Feb, 2011 [facility] [place] [facility] [address] [id number] [place] [address]- 7384 14 Feb, 2011 [facility] [place] [facility] [address] [id number] [place] [address]- 6706 17 Jan, 2011 [facility] [place] [facility] [address] [id number] [place] [address]- 2158 Jan, [facility] [address] [id number], [place] [address] 2546 Jan, [facility] [id number], [place] [address]- 2546 Jan, [facility] [address] [id number], [place] [address] 2546 May, [facility] [address] [id number], [place] [address]- 2546 Mar, [facility] [id number], [place] [address]- 1176 Oct, [facility] [id number] [place] [address]- 2546 Sep, [facility] [id number] [place] [address]- 2546 Mar, [facility] [id number], [place] [address]- 0336 Jan, [facility] [id number], [place] [address]- 5162 Jan, [facility] [id number], [place] [address] 2546 May, IMMUNIZATIONS No Known Immunizations SOCIAL HISTORY Never Assessed REASON FOR VISIT TB skin test -MO PLAN OF CARE Activity Details Follow Up 48-72 hours Reason: VITAL SIGNS MEDICATIONS Unknown Medications RESULTS No Results PROCEDURES Procedure Date Ordered Result Body Site TB INTRADERMAL 2017-10-17 N/A TB INTRADERMAL TEST October 17, 2017 INSTRUCTIONS MEDICATIONS ADMINISTERED No Known Medications MEDICAL (GENERAL) HISTORY Type Description Date Medical History hypertension Medical History Colposcopy with loop electrode excision of the cervix was performed 06/2012, mild squamous atypia (no definite dyplasia). Performed at [facility]. Joy. Medical History Acute suppurative otitis [...] cut in index finger sometime in the 1979'. Surgical History colonoscopy 04-28-15 Hospitalization History hospitalizations for surgeries only
--- OUTSIDE RECORDS SUMMARY | 2018-06-10 04:52 | XMS REPORT ---
Author Author KING BETI [facility] [address] Address [address] [place] [address] Care Team Providers Care Teacher Private Name Role Phone BETI STAUFFER Unavailable PROBLEMS Type Condition ICD9-CM Code FYY91-NX Code Onset Dates Condition Status SNOMED Code Problem Hematuria, unspecified type R31.9 Active 63215381 Problem Anxiety F41.9 Active 90741570 Problem Abnormal renal ultrasound R93.429 Active [id number] Problem Abnormal glucose R73.09 Active 041259324 Problem 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 Active 462039690 Problem Hypokalemia E87.6 Active 45728739 Problem Neck pain M54.2 Active 19549802 Problem Neuroforaminal stenosis of spine M99.89 Active 136335935894 Problem Mixed hyperlipidemia E78.2 Active 94550563 Problem Essential hypertension I10 Active 23594432 ALLERGIES No Information ENCOUNTERS Encounter Location Date Diagnosis [facility] [address] 30167- [address] Dec, [facility] [address] 77533- 9898 Nov, Hypokalemia E87.6 ; Mixed hyperlipidemia E78.2 and Hematuria , unspecified type R31.9 [facility] [id number] [place] [address] 00787- 0387 Nov, [facility] [address] 40162- 2429 Nov, Hypokalemia E87.6 [facility] [id number] [place] [address] 04702- 8144 Nov, [facility] [address] 77668- 3239 Nov, Abnormal renal ultrasound R93.429 [facility] [id number] [place] [address] 62481- 7383 Nov, Abnormal renal ultrasound R93.429 [facility] [id number] [place] [address] 14098- 3132 Nov, Hematuria, unspecified type R31.9 and Neuroforaminal stenosis of spine M99.89 [facility] [id number] [place] [address] 48155- 7322 Nov, Dysuria R30.0 [facility] [id number] [place] [address] 67166- 5636 Oct, Lateral epicondylitis, right elbow M77.11 [facility] [id number] [place] [address] 54144- 2316 Oct, Neuroforaminal stenosis of spine M99.89 ; Visit for TB skin test Z11.1 and Essential hypertension I10 [facility] [id number] [place] [address] 87885- 0551 Oct, [facility] [id number] [place] [address] 59801- 9237 Oct, Neuroforaminal stenosis of spine M99.89 [facility] [id number] [place] [address] 17833- 9905 Oct, Visit for TB skin test Z11.1 [facility] [id number] [place] [address] 40791- 6478 Oct, Cystitis without hematuria N30.90 [facility] [id number] [place] [address] 37201- 7518 Sep, Screening breast examination Z12.39 [facility] [id number] [place] [address] 70951- 0030 Sep, Dysuria R30.0 and Cystitis without hematuria N30.90 [facility] [id number] [place] [address] 07681- 7461 14 Sep, 2017 Essential hypertension I10 and Neuroforaminal stenosis of spine M99.89 [facility] [id number] [place] [address] 58485- 0122 04 Sep, 2017 Abnormal glucose R73.09 [facility] [id number] [place] [address] 72967- 1824 August, Lateral epicondylitis, right elbow M77.11 [place] [address] 09279- 0530 August, Screen for STD (sexually transmitted disease) Z11.3 [facility] [address] 57247- 2760 August, Neuroforaminal stenosis of spine M99.89 ; Mixed hyperlipidemia E78.2 ; Elevated fasting glucose R73.01 ; Screening mammogram, encounter for Z12.31 and Encounter for well woman exam without gynecological exam Z00.00 [facility] [id number] [place] [address] 26817- 6774 August, Neuroforaminal stenosis of spine M99.89 [facility] [id number] [place] [address] 67748- 4924 August, Essential hypertension I10 ; Hypokalemia E87.6 and Mixed hyperlipidemia E78.2 [facility] [id number] [place] [address] 29882- 5116 Jul, [facility] [id number] [place] [address] 22106- 5084 Jul, Neuroforaminal stenosis of spine M99.89 [facility] [id number] [place] [address] 68274- 6443 Jul, Lateral epicondylitis, right elbow M77.11 [facility] [id number] [place] [address] 25892- 1383 Jul, [facility] [id number] [place] [address] 24516- 1845 Jun, High ankle sprain of right lower extremity, initial encounter S93.431A [facility] [address] 34946- 0318 Jun, Essential hypertension I10 [facility] [id number] [place] [address] 65669- 7557 Jun, [facility] [address] 04190- 5513 Jun, [facility] [address] 18762- 3520 Jun, Neuroforaminal stenosis of spine M99.89 [facility] [address] 29756- 8268 Jun, Pain of right upper extremity M79.601 and Essential hypertension I10 [place] [address] 78001- 2135 Jun, [facility] [address] 88106- 2904 Jun, Dysuria R30.0 ; Acute cystitis with hematuria N30.01 and Screen for STD (sexually transmitted disease) Z11.3 [facility] [id number] [place] [address] 84415- 9922 May, 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 [facility] [id number] [place] [address] 49213- 6166 May, Essential hypertension I10 [facility] [id number] [place] [address] 92020- 3544 May, Neuroforaminal stenosis of spine M99.89 [facility] [id number] [place] [address] 38893- 4096 Apr, Allergic reaction, initial encounter T78.40XA [facility] [address] 93034- 6903 Apr, Low back pain, unspecified back pain laterality, unspecified chronicity, with sciatica presence unspecified M54.5 ; Acute cystitis with hematuria N30.01 ; Neuroforaminal stenosis of spine M99.89 ; Bilateral acute serous otitis media, recurrence not specified H65.03 ; Mixed hyperlipidemia E78.2 ; Essential hypertension I10 ; Immunization counseling Z71.89 and Encounter for immunization Z23 [facility] [id number] [place] [address] 94590- 9095 Apr, Neck pain M54.2 [facility] [address] 79941- 6361 Mar, Neuroforaminal stenosis of spine M99.89 [facility] [id number] [place] [address] 47175- 1320 Mar, Pharyngitis due to other organism J02.8 [facility] [id number] [place] [address] 50690- 3929 Feb, Neuroforaminal stenosis of spine M99.89 [facility] [id number] [place] [address] 87890- 8508 08 Feb, 2017 UTI (urinary tract infection) N39.0 [place] [id number] [place] [address] 51070- 4727 07 Feb, 2017 Recent urinary tract infection Z87.440 ; Neuroforaminal stenosis of spine M99.89 ; Neck pain M54.2 ; 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 and Recurrent UTI N39.0 [facility] [id number] [place] [address] 65151- 0170 Feb, [facility] [id number] [place] [address] 50786- 1033 Jan, Neuroforaminal stenosis of spine M99.89 [facility] [id number] [place] [address] 24995- 5723 Dec, Neuroforaminal stenosis of spine M99.89 [facility] [id number] [place] [address] 23475- 2017 18 Dec, 2016 Acute seasonal allergic rhinitis due to pollen J30.1 [facility] [id number] [place] [address] 84970- 7479 08 Dec, 2016 [facility] [id number] [place] [address] 27293- 7478 Dec, Acute seasonal allergic rhinitis, unspecified trigger J30.2 ; Allergic conjunctivitis of both eyes H10.13 and Dysfunction of both eustachian tubes H69.83 [facility] [id number] [place] [address] 99839- 7398 Dec, [facility] [id number] [place] [address] 48988- 6495 Dec, Nevus D22.9 [facility] [address] 67091- 5379 Nov, 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 and Neuroforaminal stenosis of spine M99.89 [facility] [id number] [place] [address] 77932- 8247 Nov, Neuroforaminal stenosis of spine M99.89 ; Essential hypertension I10 ; Mixed hyperlipidemia E78.2 ; Hypokalemia E87.6 ; Neck pain M54.2 and Nevus D22.9 [facility] [id number] [place] [address] 16052- 4911 Oct, Neuroforaminal stenosis of spine M99.89 [facility] [id number] [place] [address] 92626- 1447 Sep, Neuroforaminal stenosis of spine M99.89 [facility] [id number] [place] [address] 39222- 5407 Sep, [facility] [id number] [place] [address] 64631- 4199 August, [place] [address] [address]- 3328 August, Neck pain M54.2 and Neuroforaminal stenosis of spine M99.89 [facility] [id number] [place] [address] 54885- 8820 August, Routine gynecological examination Z01.419 and Screening breast examination Z12.39 [facility] [id number] [place] [address] 14386- 7867 Jul, [facility] [id number] [place] [address] 36870- 4714 Jul, [facility] [id number] [place] [address] 56752- 1442 Jul, Neuroforaminal stenosis of spine M99.89 [facility] [id number] [place] [address] 67174- 4426 Jul, [facility] [id number] [place] [address] 46393- 0845 Jul, 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 [facility] [id number] [place] [address] 09393- 0382 Jul, [facility] [id number] [place] [address] 78257- 7344 Jul, [facility] [id number] [place] [address] 29763- 0580 Jun, Neuroforaminal stenosis of spine M99.89 [facility] [id number] [place] [address] 96670- 2838 Jun, Uterine leiomyoma, unspecified location D25.9 and Allergic reaction caused by a drug, initial encounter T78.40XA [facility] [id number] [address]- 3308 Jun, [facility] [id number] [place] [address] 47333- 3238 May, UTI symptoms R39.9 and Pain of right sacroiliac joint M53.3 [facility] [id number] [place] [address] 38131- 5591 May, Neuroforaminal stenosis of spine M99.89 [facility] [id number] [place] [address] 37791- 5013 May, [facility] [address] 26319- 5316 May, Acute mucoid otitis media of left ear H65.112 and Acute non- recurrent maxillary sinusitis J01.00 [place] [address] 56724- 5283 May, Acute bacterial conjunctivitis of both eyes H10.33 ; Left arm pain M79.602 and Hypokalemia E87.6 [facility] [address] 81849- 0831 Apr, [facility] [facility] [address] 13422- 4011 Apr, Neuroforaminal stenosis of spine M99.89 ; Neck pain M54.2 ; 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 ; Mixed hyperlipidemia E78.2 ; Essential hypertension I10 and Hypokalemia E87.6 [facility] [id number] [place] [address] 38101- 3332 Mar, Oral candidiasis B37.0 ; Neuroforaminal stenosis of spine M99.89 ; Neck pain M54.2 and 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 [facility] [place] [id number] [place] [address] 48964- 7039 Feb, [facility] [facility] [address] 25127- 5231 Feb, [facility] [id number] [place] [address] 07211- 1570 Feb, UTI (urinary tract infection) N39.0 [facility] [id number] [place] [address] 73670- 1496 09 Feb, 2016 Dysuria R30.0 [facility] [id number] [place] [address] 82492- 0299 Feb, Dysuria R30.0 [facility] [id number] [place] [address] 72159- 0755 Feb, Neuroforaminal stenosis of spine M99.89 ; Neck pain M54.2 ; Essential hypertension I10 ; 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 ; Dysuria R30.0 ; Abnormal MRI, shoulder R93.8 and Acute cystitis without hematuria N30.00 [facility] [id number] [place] [address] 21217- 3493 Jan, [facility] [id number] [place] [address] 16344- 2160 Jan, [facility] [id number] [place] [address] 44409- 7032 Jan, [facility] [id number] [place] [address] 60726- 4564 Jan, Abnormal MRI R93.8 [facility] [id number] [place] [address] 10496- 6120 29 Dec, 2015 [facility] [id number] [place] [address] 73310 -5233 15 Dec, 2015 Acute pain of left shoulder M25.512 [facility] [id number] [place] [address] 50171- 1883 09 Dec, 2015 [facility] [id number] [place] [address] 61297- 6871 08 Dec, 2015 [facility] [id number] [place] [address] 76252- 6264 07 Dec, 2015 Acute pain of left shoulder M25.512 [facility] [id number], [place] [address]- 4156 Nov, [facility] [address] [id number] [address]- 8709 Nov, Neuroforaminal stenosis of spine M99.89 ; Neck pain M54.2 ; Abnormal mammogram R92.8 ; Essential hypertension I10 and 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 [facility] [address] [facility] [id number] [address]- 3892 Nov, [facility] [address] [id number] [address]- [address] Oct, Acute stress disorder F43.0 [facility] [id number] [place] [address] 65131- 1638 Oct, [facility] [id number] [address]- 7309 Oct, [facility] [id number] [place] [address] 95189- 4157 Oct, [facility] [id number] [address]- 1266 Sep, [facility] [id number] [address]- 9244 August, [facility] [id number] [address]- 2761 Jul, Neuroforaminal stenosis of spine M99.89 ; Neck pain M54.2 ; Abnormal mammogram R92.8 and Essential hypertension I10 [facility] [address] [facility] [id number], [place] [address]- 7832 Jul, [facility] [address] [facility] [id number] [address]- 8127 Jul, [facility] [id number] [address]- 3224 Jul, Abnormal mammogram R92.8 [facility] [id number] [address]- 0920 08 Jul, 2015 [facility] [id number] [place] [address] 33486- 6387 Jul, UTI (urinary tract infection) N39.0 [facility] [id number] 8497 Jul, Dysuria R30.0 [facility] [id number] [place] [address] 12240- 5651 Jun, [facility] [id number] [place] [address] 92641- 3138 Jun, [place] [id number] [place] [address] 30351- 6782 Jun, Hypokalemia E87.6 and Hematuria R31.9 [place] [id number] [place] [address] 47372- 4345 Jun, Hypokalemia E87.6 [place] [id number] [place] [address] 47932- 0589 Jun, [place] [id number] [place] [address] 67552- 4621 Jun, Hypokalemia E87.6 [place] [id number], [place] [address]- 8931 Jun, Hypokalemia E87.6 [place] [id number] [place] [address] 55101- 9525 15 Jun, 2015 Neuroforaminal stenosis of spine M99.89 ; Hypokalemia E87.6 ; Neck pain M54.2 ; Essential hypertension I10 ; Mixed hyperlipidemia E78.2 and Screening breast examination Z12.39 [place] [id number], [place] [address]- 1863 08 Jun, 2015 Dysuria R30.0 ; UTI (urinary tract infection) N39.0 and Hematuria R31.9 [place] [id number] [place] [address] 60498- 6248 May, [facility] [address] 56048- 5740 May, High risk sexual behavior Z72.51 ; Hypokalemia E87.6 ; Neuroforaminal stenosis of spine M99.89 ; Neck pain M54.2 ; Essential hypertension I10 ; Mixed hyperlipidemia E78.2 ; STD exposure Z20.2 and Concern about STD in female without diagnosis Z71.1 [facility] [id number] [place] [address] 44568- 6242 16 May, 2015 Neuroforaminal stenosis of spine M99.89 ; Neck pain M54.2 ; Hypokalemia E87.6 ; Essential hypertension I10 and Mixed hyperlipidemia E78.2 [place] [id number] [place] [address] 35120- 2126 May, [facility] [id number] [place] [address] 38712 -1902 08 May, 2015 High risk sexual behavior Z72.51 ; STD exposure Z20.2 and Concern about STD in female without diagnosis Z71.1 [place] [id number] [place] [address] 15506- 5215 May, [facility] [id number] [place] [address] 86196- 2660 Apr, Neuroforaminal stenosis of spine M99.89 ; Mixed hyperlipidemia E78.2 ; Essential hypertension I10 and Hypokalemia E87.6 [place] [id number] [place] [address] 29338- 7902 Mar, [facility] [id number] [place] [address] 82425- 2733 Mar, Hypokalemia E87.6 [facility] [id number] [place] [address] 28642- 6463 Mar, Neuroforaminal stenosis of spine M99.89 ; Mixed hyperlipidemia E78.2 ; Neck pain M54.2 ; Essential hypertension I10 ; Abnormal fasting glucose R73.09 ; Hypokalemia E87.6 and Constipation K59.00 [place] [address] 71635- 8695 Feb, Neuroforaminal stenosis of spine M99.89 ; Mixed hyperlipidemia E78.2 ; Neck pain M54.2 ; Essential hypertension I10 ; Abnormal fasting glucose R73.09 ; Hypokalemia E87.6 and Constipation K59.00 [place] [address] 31771- 1199 Feb, Elevated fasting blood sugar R73.01 [place] [address] 12326- 5056 Feb, Elevated fasting blood sugar R73.01 [place] [address] 27505- 4795 Feb, Hair loss L65.9 [place] [address] 37756- 7402 Feb, Sinusitis J32.9 ; Essential hypertension I10 and Hair loss L65.9 [place] [address] 79667- 1856 Jan, [place] [address] 61073- 4286 Jan, Essential hypertension I10 ; Neuroforaminal stenosis of spine M99.89 ; Neck pain M54.2 ; Mixed hyperlipidemia E78.2 and Anxiety F41.9 [place] [address] 15838- 6879 Jan, [place] [address] 10444- 7778 Jan, Mixed hyperlipidemia E78.2 ; Essential (primary) hypertension I10 ; Strain of muscle, fascia and tendon at neck level, subsequent encounter S16.1XXD and Tension-type headache, unspecified, not intractable G44.209 [facility] [id number] [place] [address] 45950- 6312 Dec, Lumbar back pain 724.2 and Neuroforaminal stenosis of spine 724.00 [facility] [id number] [place] [address] 75221- 8816 Nov, [facility] [id number] [place] [address] 81014- 2444 Nov, Lumbar back pain 724.2 and Neuroforaminal stenosis of spine 724.00 [place] [address] 07543- 5819 Nov, Edema 782.3 ; Lumbar back pain 724.2 ; Essential hypertension, benign 401.1 ; Hyperlipemia 272.4 ; Neuroforaminal stenosis of spine 724.00 and Post-concussion headache 339.20 [facility] [id number] [place] [address] 94655- 2534 Nov, [facility] [id number] [place] [address] 41962- 7845 Nov, [facility] [id number] [place] [address] 65121- 7995 Oct, Essential hypertension, benign 401.1 [facility] [id number] [place] [address] 90086- 4415 Oct, Edema 782.3 ; Lumbar back pain 724.2 ; Essential hypertension, benign 401.1 ; Hyperlipemia 272.4 ; Neuroforaminal stenosis of spine 724.00 and Post-concussion headache 339.20 [facility] [id number] [place] [address] 90787- 3024 Oct, [facility] [id number] [place] [address] 51675- [phone] Oct, Edema 782.3 [facility] [id number] [place] [address] 19489- 5468 Oct, Lumbar back pain 724.2 [facility] [id number] [place] [address] [phone]- 0284 Oct, Cervicalgia 723.1 ; Lumbar back pain 724.2 and High risk medication use V58.69 [facility] [id number] [address] Sep, [facility] [id number] [place] [address] [id number]- 9427 Sep, Lumbar strain 847.2 [facility] [id number] [place] [address] [id number]- [phone] August, Edema 782.3 and Eustachian tube dysfunction 381.81 [facility] [id number] [place] [address] [phone]- 6376 August, [facility] [id number] [place] [address] 70573- 8643 August, Eustachian tube dysfunction 381.81 [facility] [id number] [place] [address] 45701- 2215 Jul, Otalgia 388.70 and Otitis media 382.9 [facility] [id number] [place] [address] 24610- 0932 Jul, [facility] [id number] [place] [address] 40296- [phone] Jul, [facility] [id number] [address] Jul, [facility] [facility] [id number] [place] [address] Jul, [facility] [id number] [address] [address] Jul, [facility] [id number] [place] [address]- 0785 Jun, [facility] [place] [facility] [address] [id number] [place] [address] 0[address] Jun, [facility] [place] [facility] [address] [id number] [place] [address]- 1575 Jun, [facility] [place] [facility] [address] [id number] [place] [address]- 7779 May, 2014 [facility] [place] [facility] [address] [id number] [place] [address]- 5379 May, 2014 [facility] [place] [facility] [address] [id number] [place] [address]- 2214 May, 2014 [facility] [place] [facility] [address] [id number] [place] [address]- 2012 May, 2014 [facility] [place] [facility] [address] [id number] [place] [address]- 9800 May, 2014 [facility] [place] [facility] [address] [id number] [place] [address]- 0955 May, 2014 [facility] [place] [facility] [address] [id number] [place] [address]- 0364 May, [facility] [place] [facility] [address] [id number] [place] [address]- 9399 May, [facility] [place] [facility] [address] [id number] [place] [address]- 1403 May, 2014 [facility] [place] [facility] [address] [id number] [place] [address]- 3628 May, [facility] [place] [facility] [address] [id number] [place] [address]- 4987 Apr, [facility] [place] [facility] [address] [id number] [place] [address]- 8826 Apr, [facility] [place] [facility] [address] [id number] [place] [address]- 7209 Apr, [facility] [place] [facility] [address] [id number] [place] [address]- 8041 Apr, [facility] [address] [id number] [place] [address]- 7087 Apr, [facility] [place] [facility] [address] [id number] [place] [address]- 4335 Apr, [facility] [address] [id number] [place] [address]- 6945 Apr, [facility] [address] [id number] [place] [address]- 6825 Apr, [facility] [address] [id number] [place] [address]- 6911 Apr, [facility] [address] [id number] [place] [address]- 4786 Apr, [facility] [address] [id number] [place] [address]- 5096 Apr, [facility] [address] [id number] [place] [address]- 2329 Apr, [facility] [address] [id number] [place] [address]- 8033 Apr, [facility] [address] [id number] [place] [address]- 8862 Apr, [facility] [address] [id number] [place] [address]- 1774 Apr, [facility] [address] [id number] [place] [address]- 3473 Mar, [facility] [place] [facility] [address] [id number] [place] [address]- 2864 Mar, [facility] [place] [facility] [address] [id number] [place] [address]- 3367 Mar, [facility] [address] [id number] [place] [address] Mar, [facility] [place] [facility] [address] [id number] [place] [address] Feb, [facility] [place] [facility] [address] [id number] [place] [address]- 2095 Feb, [facility] [place] [facility] [address] [id number] [place] Feb, [facility] [place] [facility] [address] [id number] [place] [address]- 3170 Feb, [facility] [place] [facility] [address] [id number] [place] [address]- 2499 Jan, [facility] [place] [facility] [address] [id number] [place] [address]- 2142 Jan, [facility] [place] [facility] [address] [id number] [place] [address]- 0805 Jan, [facility] [place] [facility] [address] [id number] [address]- [address]28 Jan, [facility] [place] [facility] [address] [id number] [place] [address]- 2356 Jan, [facility] [place] [facility] [address] [id number], [place] [address]- 9863 Jan, [facility] [place] [facility] [address] [id number], [place] [address]- 0385 Jan, [facility] [place] [facility] [address] [id number] [address]- 6979 Jan, [facility] [place] [facility] [address] [id number] [place] [address]- 9075 Dec, [facility] [place] [facility] [address] [id number] [place] [address]- 7169 Dec, [facility] [place] [facility] [address] [facility] [id number] [address]63 Dec, [facility] [place] [facility] [address] [id number], [place] [address]- 4115 04 Dec, 2013 [facility] [place] [facility] [address] [id number] [place] [address]- 3101 Oct, 2013 [facility] [place] [facility] [address] [id number] [place] [address]- 9903 Oct, [facility] [place] [facility] [address] [id number] [place] [address]- 1902 Oct, 2013 [facility] [place] [facility] [address] [id number] [place] [address]- 8213 Oct, 2013 [facility] [place] [facility] [address] [id number] [place] [address]- 7044 Oct, [facility] [place] [facility] [address] [id number] [place] [address]- 1747 Oct, [facility] [place] [facility] [address] [id number] [place] [address]- 4094 Oct, [facility] [place] [facility] [address] [id number] [place] [address]- 0975 Oct, [facility] [place] [facility] [address] [id number] [place] [address]- 6722 Sep, [facility] [place] [facility] [address] [id number] [place] [address]- 5803 Sep, [facility] [place] [facility] [address] [id number] [place] [address]- 1491 Sep, [facility] [place] [facility] [address] [id number] [place] [address]- 4662 Sep, [facility] [place] [facility] [address] [id number] [place] [address]- 0866 Sep, [facility] [place] [facility] [address] [id number] [place] [address]- 8632 Sep, [facility] [place] [facility] [address] [id number] [place] [address]- 6557 Sep, [facility] [place] [facility] [address] [id number] [place] [address]- 6302 Sep, [facility] [place] [facility] [address] [id number] [place] [address]- 4266 Sep, [facility] [place] [facility] [address] [id number] [place] [address]- 8742 Sep, [facility] [place] [facility] [address] [id number] [place] [address]- 1990 August, [facility] [place] [facility] [address] [id number] [place] [address]- 5989 August, [facility] [place] [facility] [address] [id number] [place] [address]- 9236 August, [facility] [place] [facility] [address] [id number] [place] [address]- 9141 August, [facility] [place] [facility] [address] [id number] [place] [address]- 8528 August, [facility] [place] [facility] [address] [id number] [place] [address]- 0415 August, [facility] [place] [facility] [address] [id number] [place] [address]- 4210 August, [facility] [place] [facility] [address] [id number] [place] [address]- 9625 August, [facility] [place] [facility] [address] [id number] [place] [address]- 1627 August, [facility] [place] [facility] [address] [id number] [place] [address] August, [facility] [place] [facility] [address] [id number] [place] August, [facility] [place] [facility] [address] [id number] [place] [address]- 8424 August, [facility] [place] [facility] [address] [id number] [place] [address]- 8497 Jul, [facility] [place] [facility] [address] [id number] [place] [address]- 5003 Jul, [facility] [place] [facility] [address] [id number] [place] [address]- 9955 Jul, [facility] [place] [facility] [address] [id number] [place] [address]- 7445 Jul, [facility] [place] [facility] [address] [id number] [place] [address]- 9077 Jul, [facility] [place] [facility] [address] [id number] [place] [address]- 5641 Jul, [facility] [place] [facility] [address] [id number] [place] [address]- 0400 Jun, [facility] [place] [facility] [address] [id number] [place] [address]- 2297 Jun, [facility] [place] [facility] [address] [id number] [place] [address]- 7471 May, [facility] [place] [facility] [address] [id number] [place] [address]- 3200 May, [facility] [place] [facility] [address] [id number] [place] [address]- 6348 Apr, [facility] [place] [facility] [address] [id number] [place] [address]- 4781 Apr, [facility] [place] [facility] [address] [id number] [place] [address]- 7544 Apr, [facility] [place] [facility] [address] [id number] [place] [address]- 8909 Apr, [facility] [place] [facility] [address] [id number] [place] [address]- 1350 Apr, [facility] [place] [facility] [address] [id number] [place] [address]- 3978 Apr, [facility] [place] [facility] [address] [id number] [place] [address]- 5343 Apr, [facility] [address] [id number] [place] [address]- 8053 Apr, [facility] [address] [id number] [place] [address]- 3403 Apr, [facility] [address] [id number] [place] [address]- 4032 Apr, [facility] [address] [id number] [place] [address]- 9837 Apr, [facility] [address] [id number] [place] [address]- 0226 Apr, [facility] [address] [id number] [place] [address]- 1020 Apr, [facility] [address] [id number] [place] [address]- 5998 Mar, [facility] [address] [id number] [place] [address]- 4654 Mar, [facility] [address] [id number] [place] [address]- 4410 Mar, [facility] [address] [id number] [place] [address]- 6373 Mar, [facility] [address] [id number] [place] [address]- 8974 Feb, [facility] [address] [id number] [place] [address]- 8768 Feb, [facility] [place] [facility] [address] [id number] [place] [address]- 6050 Feb, [facility] [place] [facility] [address] [id number] [place] [address]- 2107 08 Feb, 2013 [facility] [place] [facility] [address] [id number] [place] [address]- 4329 14 Jan, 2013 [facility] [place] [facility] [address] [id number] [place] [address]- 3132 14 Jan, 2013 [facility] [place] [facility] [address] [id number] [place] [address]- 7434 11 Jan, 2013 [facility] [place] [facility] [address] [id number] [place] [address]- 1126 11 Jan, 2013 [facility] [place] [facility] [address] [id number] [place] [address]- 5795 10 Jan, 2013 [facility] [place] [facility] [address] [id number] [place] [address]- 5058 10 Jan, 2013 [facility] [place] [facility] [address] [id number] [place] [address]- 0196 09 Jan, 2013 [facility] [place] [facility] [address] [id number] [place] [address]- 5426 09 Jan, 2013 [facility] [place] [facility] [address] [id number] [place] [address]- 8236 Jan, [facility] [place] [facility] [address] [id number] [place] [address]- 9013 26 Dec, 2012 [facility] [place] [facility] [address] [id number] [place] [address]- 8042 16 Dec, 2012 [facility] [place] [facility] [address] [id number] [place] [address]- 8431 16 Dec, 2012 [facility] [place] [facility] [address] [id number], [place] [address]- 1138 13 Dec, 2012 [facility] [place] [facility] [address] [id number] [place] [address]- 1559 17 Nov, 2012 [facility] [place] [facility] [address] [id number] [place] [address]- 4760 17 Nov, 2012 [facility] [place] [facility] [address] [id number], [place] [address]- 5219 14 Nov, 2012 [facility] [place] [facility] [address] [id number], [place] [address]- 2177 Nov, [facility] [address] [id number] [place] [address]- 7975 Oct, [facility] [address] [id number] [place] [address]- 1758 Sep, [facility] [address] [id number] [place] [address]- 5470 August, [facility] [address] [id number] [place] [address]- 6901 August, [facility] [address] [id number] [place] [address]- 3191 August, [facility] [address] [id number] [place] [address]- 4697 August, [facility] [address] [id number] [place] [address]- 0441 August, [facility] [address] [id number] [place] [address]- 2671 August, [facility] [address] [id number] [place] [address]- 7401 August, [facility] [address] [id number] [place] [address]- 6121 August, [facility] [address] [id number] [place] [address]- 8308 August, [facility] [address] [id number] [place] [address]- 8532 August, [facility] [address] [id number] [place] [address]- 9838 August, [facility] [address] [id number] [place] [address]- 2257 August, [facility] [address] [id number] [place] [address]- 6364 Jul, [facility] [address] [id number] [place] [address]- 1294 Jul, [facility] [address] [id number] [place] [address]- 0461 18 Jul, 2012 [facility] [address] [id number] [place] [address]- 3936 15 Jul, 2012 [facility] [address] [id number] [place] [address]- 3706 Jul, [facility] [address] [id number] [place] [address]- 6405 08 Jul, 2012 [facility] [address] [id number] [place] [address]- 6537 Jul, [facility] [address] [id number] [place] [address]- 2534 Jul, [facility] [address] [id number] [place] [address]- 0287 Jul, [facility] [address] [id number] [place] [address]- 1450 Jul, [facility] [address] [id number] [place] [address]- 0063 Jul, [facility] [address] [id number] [place] [address]- 4524 Jun, [facility] [place] [facility] [address] [id number] [place] [address]- 5667 Jun, [facility] [address] [id number] [place] [address]- 7973 Jun, [facility] [place] [facility] [address] [id number] [place] [address]- 7226 Jun, [facility] [place] [facility] [address] [id number] [place] [address]- 3096 28 May, 2012 [facility] [place] [facility] [address] [id number] [place] [address]- 2593 14 May, 2012 [facility] [place] [facility] [address] [id number] [place] [address]- 1384 05 May, 2012 [facility] [place] [facility] [address] [id number] [place] [address]- 2836 04 May, 2012 [facility] [place] [facility] [address] [id number] [place] [address]- 6296 May, [facility] [place] [facility] [address] [id number] [place] [address]- 8494 May, [facility] [place] [facility] [address] [id number] [place] [address]- 5682 Apr, [facility] [place] [facility] [address] [id number] [place] [address]- 6658 Apr, [facility] [place] [facility] [address] [id number] [place] [address]- 6003 Apr, [facility] [place] [facility] [address] [id number] [place] [address]- 5681 Apr, [facility] [place] [facility] [address] [id number] [place] [address]- 1421 15 Mar, 2012 [facility] [place] [facility] [address] [id number] [place] [address]- 9200 14 Mar, 2012 [facility] [place] [facility] [address] [id number] [place] [address]- 2675 14 Mar, 2012 [facility] [place] [facility] [address] [id number] [place] [address]- 4272 14 Mar, 2012 [facility] [place] [facility] [address] [id number] [place] [address]- 9866 14 Mar, 2012 [facility] [place] [facility] [address] [id number] [place] [address]- 2493 06 Mar, 2012 [facility] [place] [facility] [address] [id number] [place] [address]- 0152 06 Mar, 2012 [facility] [place] [facility] [address] [id number] [place] [address]- 9591 Feb, [facility] [place] [facility] [address] [id number] [place] [address]- 4465 Feb, [facility] [place] [facility] [address] [id number] [place] [address]- 8315 Feb, [facility] [place] [facility] [address] [id number] [place] [address]- 1479 Feb, [facility] [place] [facility] [address] [id number] [place] [address]- 2524 Jan, [facility] [place] [facility] [address] [id number] [place] [address]- 7262 Jan, [facility] [place] [facility] [address] [id number] [place] [address]- 5311 Jan, [facility] [place] [facility] [address] [id number] [place] [address]- 8281 Jan, [facility] [place] [facility] [address] [id number] [place] [address]- 1046 Jan, [facility] [place] [facility] [address] [id number] [place] [address]- 3838 Jan, [facility] [place] [facility] [address] [id number] [place] [address] Dec, [facility] [place] [facility] [address] [id number] [place] [address] Dec, [facility] [place] [facility] [address] [id number] [place] [address] Nov, [facility] [place] [facility] [address] [id number] [place] [address] Sep, [facility] [place] [facility] [address] [id number] [place] [address] August, [facility] [place] [facility] [address] [id number] [place] [address] August, [facility] [place] [facility] [address] [id number] [place] [address] August, [facility] [place] [facility] [address] [id number] [place] [address] August, [facility] [place] [facility] [address] [id number] [place] [address] August, [facility] [place] [facility] [address] [id number] [place] [address] Jun, [facility] [place] [facility] [address] [id number] [place] [address] Jun, [facility] [place] [facility] [address] [id number] [place] [address] Apr, [facility] [place] [facility] [address] [id number] [place] [address] Apr, [facility] [place] [facility] [address] [id number] [place] [address] Mar, [facility] [place] [facility] [address] [id number] [place] [address] Feb, [facility] [place] [facility] [address] [id number], [place] [address] Feb, [facility] [place] [facility] [address] [id number], [place] [address] Feb, [facility] [place] [facility] [address] [id number], [place] [address] 17 Jan, 2011 [facility] [place] [facility] [address] [id number] [place] [address] 15 Jan, 2011 [facility] [place] [facility] [address] [id number] [place] [address] 15 Jan, 2011 [facility] [place] [facility] [address] [id number], [place] [address] 14 Jan, 2011 [facility] [place] [facility] [address] [id number], [place] [address] May, [facility] [id number] [place] [address] Mar, [facility] [id number] [place] [address]- [address] Oct, [facility] [id number] [place] [address]- [address] Sep, [facility] [id number] [place] [address]- [address] Mar, [facility] [id number] [place] [address] 6[address] Jan, [facility] [id number] [place] [address]- [address] Jan, [place] [id number] [place] [phone] May, IMMUNIZATIONS No Known Immunizations SOCIAL HISTORY Never Assessed REASON FOR VISIT Lab (walk-in) PLAN OF CARE VITAL SIGNS MEDICATIONS Unknown Medications RESULTS Name Result Date Reference Range UA LONG DIP (IN HOUSE) 2017-10-12 Lot # [id number] Exp date 07/2018 Clarity Clear Color Dark Yellow Odor no GLU Negative JUNIOR Negative KET Negative SG >=1.030 BLO Trace-Intact pH 5.5 Protein Negative URO 0.2 NIT Negative YENY Trace Lot # [id number] Exp date 03/2018 PROCEDURES Procedure Date Ordered Result Body Site URINALYSIS, AUTO, W/O SCOPE October 12, 2017 INSTRUCTIONS MEDICATIONS ADMINISTERED No Known Medications [...]
--- OUTSIDE RECORDS SUMMARY | 2018-06-10 04:53 | XMS REPORT ---
Author Author KING BETI [facility] Address [address] [place] [address] Care Team Providers Care Bag Repairer Name Role Phone BETI STAUFFER Unavailable PROBLEMS Type Condition ICD9-CM Code SND46-GV Code Onset Dates Condition Status SNOMED Code Problem Hematuria, unspecified type R31.9 Active 98249085 Problem Anxiety F41.9 Active 61836696 Problem Abnormal renal ultrasound R93.429 Active 92292961713668665 Problem Abnormal glucose R73.09 Active 183727607 Problem 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 Active 460269103 Problem Hypokalemia E87.6 Active 61789860 Problem Neck pain M54.2 Active 22645640 Problem Neuroforaminal stenosis of spine M99.89 Active 377087661857 Problem Mixed hyperlipidemia E78.2 Active 41453906 Problem Essential hypertension I10 Active 44326583 ALLERGIES Substance Reaction Event Type Date Status Fluarix Quadrivalent rash Drug Allergy Sep, Active Zostavax rash Drug Allergy Sep, Active Macrobid rash Drug Allergy Sep, Active Cipro hives Drug Allergy Sep, Active Bactrim hives Drug Allergy Sep, Active Baclofen Unknown Drug Allergy Sep, Active Amitriptyline HCl dizziness Drug Allergy Sep, Active Peanut Unknown Non Drug Allergy Sep, Active ENCOUNTERS Encounter Location Date Diagnosis [facility] [id number], [place] [address] Dec, [facility] [id number] [place] [address] 97862- 3586 Nov, Hypokalemia E87.6 ; Mixed hyperlipidemia E78.2 and Hematuria , unspecified type R31.9 [facility] [id number], [place] [address] Nov, [facility] [id number] [place] [address] 84435- 7178 Nov, Hypokalemia E87.6 [facility] [id number] [place] [address] 74969- 4543 Nov, [facility] [id number] [place] [address] 21274- 3470 Nov, Abnormal renal ultrasound R93.429 [facility] [id number] [place] [address] 05472- 6520 Nov, Abnormal renal ultrasound R93.429 [facility] [id number] [place] [address] 54004- 5058 Nov, Hematuria, unspecified type R31.9 and Neuroforaminal stenosis of spine M99.89 [facility] [id number] [place] [address] 45093- 5945 Nov, Dysuria R30.0 [facility] [id number] [place] [address] 16452- 3101 Oct, Lateral epicondylitis, right elbow M77.11 [facility] [address] 29175- 5014 Oct, Visit for TB skin test Z11.1 ; Neuroforaminal stenosis of spine M99.89 and Essential hypertension I10 [facility] [id number] [place] [address] 38503- 9242 Oct, [facility] [id number] [place] [address] 00293- 9982 Oct, Neuroforaminal stenosis of spine M99.89 [facility] [id number] [place] [address] 12013- 5442 Oct, Visit for TB skin test Z11.1 [facility] [id number] [place] [address] 24126- 3542 05 Oct, 2017 Cystitis without hematuria N30.90 [facility] [id number] [place] [address] 47385- 1916 28 Sep, 2017 Screening breast examination Z12.39 [facility] [address] 44529- 2191 26 Sep, 2017 Dysuria R30.0 and Cystitis without hematuria N30.90 [facility] [address] 63872- 7728 14 Sep, 2017 Essential hypertension I10 and Neuroforaminal stenosis of spine M99.89 [facility] [address] 51827- 1685 Sep, Abnormal glucose R73.09 [facility] [address] 11895- 9367 August, Lateral epicondylitis, right elbow M77.11 [facility] [address] 94549- 0551 August, Screen for STD (sexually transmitted disease) Z11.3 [facility] [address] 42699- 5568 August, Neuroforaminal stenosis of spine M99.89 ; Mixed hyperlipidemia E78.2 ; Elevated fasting glucose R73.01 ; Screening mammogram, encounter for Z12.31 and Encounter for well woman exam without gynecological exam Z00.00 [facility] [id number] [place] [address] 87749- 1545 August, Neuroforaminal stenosis of spine M99.89 [facility] [id number] [place] [address] 37559- 9085 August, Essential hypertension I10 ; Hypokalemia E87.6 and Mixed hyperlipidemia E78.2 [facility] [id number] [place] [address] 41758- 0443 Jul, [facility] [id number] [place] [address] 16629- 2681 Jul, Neuroforaminal stenosis of spine M99.89 [facility] [id number] [place] [address] 96218- 7761 Jul, Lateral epicondylitis, right elbow M77.11 [facility] [id number] [place] [address] 39853- 5431 Jul, [facility] [id number] [place] [address] 00209- 2085 Jun, High ankle sprain of right lower extremity, initial encounter S93.431A [facility] [id number] [place] [address] 52134- 0022 Jun, Essential hypertension I10 [facility] [id number] [place] [address] 94450- 9493 Jun, [facility] [id number] [place] [address] 91052- 4304 Jun, [facility] [address] 11032- 7760 Jun, Neuroforaminal stenosis of spine M99.89 [facility] [id number] [place] [address] 53027- 4873 Jun, Pain of right upper extremity M79.601 and Essential hypertension I10 [facility] [id number] [place] [address] 68208- 6606 Jun, [facility] [id number] [place] [address] 85970- 3261 Jun, Dysuria R30.0 ; Acute cystitis with hematuria N30.01 and Screen for STD (sexually transmitted disease) Z11.3 [facility] [id number] [place] [address] 89725- 4164 May, 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 [facility] [id number] [place] [address] 78655- 1632 May, Essential hypertension I10 [address] [id number] [place] [address] 70389- 0476 May, Neuroforaminal stenosis of spine M99.89 [address] [facility] [address] 53259- 7624 Apr, Allergic reaction, initial encounter T78.40XA [facility] [id number] [place] [address] 72987- 8510 Apr, Low back pain, unspecified back pain laterality, unspecified chronicity, with sciatica presence unspecified M54.5 ; Acute cystitis with hematuria N30.01 ; Neuroforaminal stenosis of spine M99.89 ; Bilateral acute serous otitis media, recurrence not specified H65.03 ; Mixed hyperlipidemia E78.2 ; Essential hypertension I10 ; Immunization counseling Z71.89 and Encounter for immunization Z23 [facility] [id number] [place] [address] 76703- 6895 Apr, Neck pain M54.2 [facility] [address] 03200- 6218 Mar, Neuroforaminal stenosis of spine M99.89 [facility] [address] 92951- 1661 Mar, Pharyngitis due to other organism J02.8 [facility] [id number] [place] [address] 37687- 7335 Feb, Neuroforaminal stenosis of spine M99.89 [facility] [id number] [place] [address] 76630- 3407 08 Feb, 2017 UTI (urinary tract infection) N39.0 [facility] [id number] [place] [address] 43736- 4637 07 Feb, 2017 Recent urinary tract infection Z87.440 ; Neuroforaminal stenosis of spine M99.89 ; Neck pain M54.2 ; 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 and Recurrent UTI N39.0 [facility] [address] 55006- 2793 Feb, [facility] [id number] [place] [address] 42402- 5206 Jan, Neuroforaminal stenosis of spine M99.89 [facility] [id number] [place] [address] 84374- 4910 28 Dec, 2016 Neuroforaminal stenosis of spine M99.89 [facility] [id number] [place] [address] 18515- 7196 18 Dec, 2016 Acute seasonal allergic rhinitis due to pollen J30.1 [facility] [id number] [place] [address] 05903- 0297 08 Dec, 2016 [facility] [id number] [place] [address] 94485- 4175 08 Dec, 2016 Acute seasonal allergic rhinitis, unspecified trigger J30.2 ; Allergic conjunctivitis of both eyes H10.13 and Dysfunction of both eustachian tubes H69.83 [facility] [id number] [place] [address] 37595- 1944 07 Dec, 2016 [facility] [address] 24426- 8302 06 Dec, 2016 Nevus D22.9 [facility] [id number] [place] [address] 60048- 5609 Nov, 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 and Neuroforaminal stenosis of spine M99.89 [facility] [id number] [place] [address] 53225- 5741 15 Nov, 2016 Neuroforaminal stenosis of spine M99.89 ; Essential hypertension I10 ; Mixed hyperlipidemia E78.2 ; Hypokalemia E87.6 ; Neck pain M54.2 and Nevus D22.9 [facility] [id number] [place] [address] 11287- 7888 Oct, Neuroforaminal stenosis of spine M99.89 [facility] [id number] [place] [address] 03381- 5973 Sep, Neuroforaminal stenosis of spine M99.89 [facility] [id number] [place] [address] 60995- 1096 Sep, [facility] [address] [facility] [id number] [address] 2546 August, [facility] [address] [facility] [id number] [place] [address] 58748- 1041 August, Neck pain M54.2 and Neuroforaminal stenosis of spine M99.89 [facility] [id number] [place] [address] 79920- 1146 August, Routine gynecological examination Z01.419 and Screening breast examination Z12.39 [facility] [id number] [place] [address] 05215- 1841 Jul, [facility] [id number] [place] [address] 03209- 7254 Jul, [facility] [id number] [place] [address] 58885- 2251 Jul, Neuroforaminal stenosis of spine M99.89 [facility] [id number] [place] [address] 59811- 7037 Jul, [facility] [id number] [place] [address] 05005- 3877 Jul, 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 [facility] [address] [id number], [place] [address] 2542 Jul, [facility] [address] [facility] [id number] [place] [address] 71845 2544 Jul, [facility] [address] [facility] [id number], [place] [address]- 2546 Jun, Neuroforaminal stenosis of spine M99.89 [facility] [address] [facility] [id number] [place] [address] 90616- 9830 Jun, Uterine leiomyoma, unspecified location D25.9 and Allergic reaction caused by a drug, initial encounter T78.40XA [facility] [id number] [place] [address] 96287- 8083 Jun, [facility] [id number] [place] [address] 10023- 5465 May, UTI symptoms R39.9 and Pain of right sacroiliac joint M53.3 [facility] [address] 21733- 2651 May, Neuroforaminal stenosis of spine M99.89 [address] [facility] [address] 90710- 1445 May, [facility] [address] 39446- 4208 May, Acute mucoid otitis media of left ear H65.112 and Acute non- recurrent maxillary sinusitis J01.00 [facility] [id number] [place] [address] 35085- 9775 May, Acute bacterial conjunctivitis of both eyes H10.33 ; Left arm pain M79.602 and Hypokalemia E87.6 [facility] [id number] [place] [address] 39380- 1827 Apr, [facility] [address] 67552- 5467 Apr, Neuroforaminal stenosis of spine M99.89 ; Neck pain M54.2 ; 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 ; Mixed hyperlipidemia E78.2 ; Essential hypertension I10 and Hypokalemia E87.6 [facility] [id number] [place] [address] 92503- 2922 Mar, Oral candidiasis B37.0 ; Neuroforaminal stenosis of spine M99.89 ; Neck pain M54.2 and 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 [facility] [address], [place] [address]- 5735 Feb, [facility] [id number] [place] [address] 84646- 1415 Feb, [facility] [id number] [place] [address] 99741- 4929 Feb, UTI (urinary tract infection) N39.0 [facility] [id number] [place] [address] 62213- 1525 09 Feb, 2016 Dysuria R30.0 [facility] [id number] [place] [address] 79269- 4957 Feb, Dysuria R30.0 [facility] [id number] [place] [address] 79294- 8668 Feb, Neuroforaminal stenosis of spine M99.89 ; Neck pain M54.2 ; Essential hypertension I10 ; 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 ; Dysuria R30.0 ; Abnormal MRI, shoulder R93.8 and Acute cystitis without hematuria N30.00 [facility] [id number] [place] [address] 04970- 6249 Jan, [facility] [id number] [place] [address] 66002- 1398 Jan, [facility] [id number] [place] [address] 06582- 6579 Jan, [facility] [id number] [place] [address] 15384- 8426 Jan, Abnormal MRI R93.8 [facility] [id number] [place] [address] 15093- 0884 29 Dec, 2015 [facility] [id number] [place] [address] 46892 -4954 15 Dec, 2015 Acute pain of left shoulder M25.512 [facility] [id number] [place] [address] 75135- 8760 Dec, [facility] [id number], [place] [address]- 8995 Dec, [facility] [id number] [place] [address] 37110- 5945 Dec, Acute pain of left shoulder M25.512 [facility] [id number], [place] [address]- 9937 Nov, [facility] [id number] [place] [address] 59136- 3803 Nov, Neuroforaminal stenosis of spine M99.89 ; Neck pain M54.2 ; Abnormal mammogram R92.8 ; Essential hypertension I10 and 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 [facility] [address], [place] [address]- 5754 Nov, [facility] [id number] [place] [address] 35629- 4025 Oct, Acute stress disorder F43.0 [facility] [address], [place] [address]- 2789 Oct, [facility] [id number] [place] [address] 14365- 6300 Oct, [facility] [id number], [place] [address]- 4909 Oct, [facility] [id number], [place] [address]- 0721 Sep, [facility] [id number], [place] [address]- 6859 August, [facility] [id number], [place] [address]- 7388 Jul, Neuroforaminal stenosis of spine M99.89 ; Neck pain M54.2 ; Abnormal mammogram R92.8 and Essential hypertension I10 [facility] [id number] [place] [address] 05132- 0826 Jul, [facility] [address], [place] [address] 2546 Jul, [facility] [address], [place] [address] 2546 Jul, Abnormal mammogram R92.8 [facility] [address], [place] [address] 2546 Jul, [facility] [address], [place] [address] 2544 Jul, UTI (urinary tract infection) N39.0 [facility] [id number] [place] [address] 25068- 2616 Jul, Dysuria R30.0 [facility] [address], [place] [address] 2546 Jun, [facility] [address], [place] [address] 2546 Jun, [facility] [address], [place] [address] 2541 Jun, Hypokalemia E87.6 and Hematuria R31.9 [facility] [address], [place] [address] 2546 Jun, Hypokalemia E87.6 [facility] [address], [place] [address] 2546 23 Jun, 2015 [facility] [address], [place] [address] 2546 18 Jun, 2015 Hypokalemia E87.6 [facility] [address], [place] [address] 2546 18 Jun, 2015 Hypokalemia E87.6 [facility] [address], [place] [address] 2546 15 Jun, 2016 Neuroforaminal stenosis of spine M99.89 ; Hypokalemia E87.6 ; Neck pain M54.2 ; Essential hypertension I10 ; Mixed hyperlipidemia E78.2 and Screening breast examination Z12.39 [id number] [place] [address] 31323- 0102 Jun, Dysuria R30.0 ; UTI (urinary tract infection) N39.0 and Hematuria R31.[address] 12486- 2917 May, [address] 28995- 3157 May, High risk sexual behavior Z72.51 ; Hypokalemia E87.6 ; Neuroforaminal stenosis of spine M99.89 ; Neck pain M54.2 ; Essential hypertension I10 ; Mixed hyperlipidemia E78.2 ; STD exposure Z20.2 and Concern about STD in female without diagnosis Z71.[address] 12394- 1518 16 May, 2015 Neuroforaminal stenosis of spine M99.89 ; Neck pain M54.2 ; Hypokalemia E87.6 ; Essential hypertension I10 and Mixed hyperlipidemia E78.2 [address] [id number] [place] [address] 27245- 0592 May, [facility] [address] [place] [id number] [place] [address] 13196 -3600 May, High risk sexual behavior Z72.51 ; STD exposure Z20.2 and Concern about STD in female without diagnosis Z71.1 [id number] [place] [address] 76684- 0356 May, [address] 24393- 6138 Apr, Neuroforaminal stenosis of spine M99.89 ; Mixed hyperlipidemia E78.2 ; Essential hypertension I10 and Hypokalemia E87.6 [place] [address] [address]- 4148 Mar, [facility] [address] 99256- 6582 Mar, Hypokalemia E87.6 [facility] [id number] [place] [address] 16496- 9325 Mar, Neuroforaminal stenosis of spine M99.89 ; Mixed hyperlipidemia E78.2 ; Neck pain M54.2 ; Essential hypertension I10 ; Abnormal fasting glucose R73.09 ; Hypokalemia E87.6 and Constipation K59.00 [place] [address] 28192- 5959 Feb, Neuroforaminal stenosis of spine M99.89 ; Mixed hyperlipidemia E78.2 ; Neck pain M54.2 ; Essential hypertension I10 ; Abnormal fasting glucose R73.09 ; Hypokalemia E87.6 and Constipation K59.00 [place] [id number] [place] [address] 05326- 4301 Feb, Elevated fasting blood sugar R73.01 [place] [address] 07836- 6817 Feb, Elevated fasting blood sugar R73.01 [place] [facility] [address] 19596- 6418 Feb, Hair loss L65.9 [facility] [id number] [place] [address] 12021- 6259 Feb, Sinusitis J32.9 ; Essential hypertension I10 and Hair loss L65.9 [place] [address] 31789- 1280 Jan, [place] [facility] [address] 56933- 1728 Jan, Essential hypertension I10 ; Neuroforaminal stenosis of spine M99.89 ; Neck pain M54.2 ; Mixed hyperlipidemia E78.2 and Anxiety F41.9 [facility] [id number] [place] [address] 93936- 4383 Jan, [facility] [id number] [place] [address] 30159- 2782 Jan, Mixed hyperlipidemia E78.2 ; Essential (primary) hypertension I10 ; Strain of muscle, fascia and tendon at neck level, subsequent encounter S16.1XXD and Tension-type headache, unspecified, not intractable G44.209 [facility] [id number] [place] [address] 77048- 9098 Dec, Lumbar back pain 724.2 and Neuroforaminal stenosis of spine 724.00 [facility] [id number] [place] [address] 30049- 1663 Nov, [place] [id number] [place] [address] 14600- 8259 Nov, Lumbar back pain 724.2 and Neuroforaminal stenosis of spine 724.00 [facility] [id number] [place] [address] 27718- 9855 Nov, Edema 782.3 ; Lumbar back pain 724.2 ; Essential hypertension, benign 401.1 ; Hyperlipemia 272.4 ; Neuroforaminal stenosis of spine 724.00 and Post-concussion headache 339.20 [place] [id number] [place] [address] 18536- 0628 Nov, [facility] [id number] [place] [address] 85902- 7235 Nov, [place] [id number] [place] [address] 66874- 4238 Oct, Essential hypertension, benign 401.1 [place] [id number] [place] [address] 05571- 9885 Oct, Edema 782.3 ; Lumbar back pain 724.2 ; Essential hypertension, benign 401.1 ; Hyperlipemia 272.4 ; Neuroforaminal stenosis of spine 724.00 and Post-concussion headache 339.20 [facility] [address], [place] [address]- 6551 Oct, [facility] [id number] [place] [address] 57595- 1481 Oct, Edema 782.3 [facility] [id number] [place] [address] 48243- 5376 Oct, Lumbar back pain 724.2 [facility] [id number] [place] [address] 20403- 0465 Oct, Cervicalgia 723.1 ; Lumbar back pain 724.2 and High risk medication use V58.69 [facility] [id number] [place] [address] 31222- 9410 Sep, [facility] [id number] [place] [address] 64683- 1913 Sep, Lumbar strain 847.2 [facility] [id number] [place] [address] 56827- 3771 August, Edema 782.3 and Eustachian tube dysfunction 381.81 [facility] [id number] [place] [address] 43187- 7780 August, [facility] [id number] [place] [address] 24073- 9477 August, Eustachian tube dysfunction 381.81 [facility] [id number] [place] [address] 26083- 2698 Jul, Otalgia 388.70 and Otitis media 382.9 [facility] [id number] [place] [address] 01588- 5234 Jul, [facility] [id number] [place] [address] 50410- 9767 Jul, [facility] [id number] [place] [address] 69514- 7737 Jul, [facility] [place] [facility] [address] [id number] [place] [address]- [address] 14 Jul, 2014 [facility] [place] [facility] [address] [id number] [place] [address]- 3674 13 Jul, 2014 [facility] [place] [facility] [address] [id number] [place] [address]- 9391 27 Jun, 2014 [facility] [place] [facility] [address] [id number] [place] [address]- 3224 27 Jun, 2014 [facility] [place] [facility] [address] [id number] [place] [address]- 4630 16 Jun, 2014 [facility] [place] [facility] [address] [id number] [place] [address]- 0861 May, 2014 [facility] [place] [facility] [address] [facility] [id number] [place] [address]- 5036 May, 2014 [facility] [place] [facility] [address] [id number] [place] [address]- 4319 May, 2014 [facility] [place] [facility] [address] [id number] [place] [address]- 0178 May, 2014 [facility] [place] [facility] [address] [facility] [id number] [place] [address]- 4903 May, 2014 [facility] [place] [facility] [address] [facility] [id number] [place] [address]- 5567 May, 2014 [facility] [place] [facility] [address] [id number] [place] [address]- 2533 May, 2014 [facility] [place] [facility] [address] [id number] [place] [address]- 6977 May, 2014 [facility] [place] [facility] [address] [facility] [id number] [place] [address] May, 2014 [facility] [place] [facility] [address] [facility] [id number] [place] [address] 9724 May, 2014 [facility] [place] [facility] [address] [id number] [place] [address] Apr, [facility] [address] [id number] [place] [address] 7681 Apr, [facility] [place] [facility] [address] [id number] [place] [address] 2684 Apr, [facility] [address] [id number] [place] [address] 5386 Apr, [facility] [address] [id number] [place] [address] 2819 Apr, [facility] [address] [id number] [place] [address] 0035 Apr, [facility] [address] [id number] [place] [address]- 0092 Apr, [facility] [address] [id number] [place] [address] 8325 Apr, [facility] [address] [id number] [place] [address] 1987 Apr, [facility] [address] [id number] [place] [address] 5063 Apr, [facility] [address] [id number] [place] [address] 8989 Apr, [facility] [address] [id number] [place] [address] 7580 Apr, [facility] [address] [id number] [place] [address]- 6123 Apr, [facility] [place] [facility] [address] [id number] [place] [address]- 7963 Apr, [facility] [place] [facility] [address] [id number] [place] [address] 2398 Apr, [facility] [address] [id number] [place] [address] 0174 Mar, [facility] [place] [facility] [address] [id number] [place] [address]- 4443 Mar, [facility] [place] [facility] [address] [id number] [place] [address]- 9208 Mar, [facility] [place] [facility] [address] [id number] [place] [address] 5816 Mar, [facility] [place] [facility] [address] [id number] [place] [address]- 7282 Feb, [facility] [place] [facility] [address] [id number] [place] [address] Feb, [facility] [place] [facility] [address] [id number] [place] [address]- 5314 Feb, [facility] [place] [facility] [address] [id number] [place] [address]- 9469 Feb, [facility] [place] [facility] [address] [id number] [place] [address]- 7439 Jan, [facility] [place] [facility] [address] [id number] [place] [address]- 4078 Jan, [facility] [place] [facility] [address] [id number], [place] [address] 9130 Jan, [facility] [place] [facility] [address] [id number], [place] [address] 0418 Jan, [facility] [place] [facility] [address] [id number], [place] [address]- 9985 Jan, [facility] [place] [facility] [address] [id number], [place] [address]- 6426 Jan, [facility] [place] [facility] [address] [id number][place] [address]99 Jan, [facility] [place] [facility] [address] [id number][place] [address] Jan, [facility] [place] [facility] [address] [id number], [place] [address] 29 Dec, 2013 [facility] [place] [facility] [address] [id number] [place] [address]- 7832 29 Dec, 2013 [facility] [place] [facility] [address] [id number] [place] [address]- 0854 Dec, [facility] [place] [facility] [address] [id number] [place] [address] 8696 Dec, 2013 [facility] [place] [facility] [address] [id number] [place] [address]- 6693 Oct, 2013 [facility] [place] [facility] [address] [id number] [place] [address]- 9396 Oct, [facility] [place] [facility] [address] [id number] [place] [address]- 2793 Oct, [facility] [place] [facility] [address] [id number] [place] [address] 4249 Oct, 2013 [facility] [place] [facility] [address] [id number] [place] [address]- 0767 Oct, [facility] [place] [facility] [address] [id number] [place] [address]- 9812 Oct, [facility] [place] [facility] [address] [id number] [place] [address]- 6521 Oct, [facility] [place] [facility] [address] [id number] [place] [address]- 4771 Oct, [facility] [place] [facility] [address] [id number] [place] [address]- 0929 Sep, [facility] [place] [facility] [address] [id number] [place] [address]- 3121 Sep, [facility] [place] [facility] [address] [id number] [place] [address]- 7132 Sep, [facility] [place] [facility] [address] [id number] [place] [address]- 4673 Sep, [facility] [place] [facility] [address] [id number] [place] [address]- 1605 Sep, [facility] [place] [facility] [address] [id number] [place] [address]- 5138 Sep, [facility] [place] [facility] [address] [id number] [place] [address]- 0829 Sep, [facility] [place] [facility] [address] [id number] [place] [address]- 3665 Sep, [facility] [place] [facility] [address] [id number] [place] [address]- 6442 Sep, [facility] [place] [facility] [address] [id number] [place] [address]- 5722 Sep, [facility] [place] [facility] [address] [id number] [place] [address]- 6918 August, [facility] [place] [facility] [address] [id number] [place] [address]- 0162 August, [facility] [place] [facility] [address] [id number] [place] [address]- 4306 August, [facility] [place] [facility] [address] [id number] [place] [address]- 3868 August, [facility] [place] [facility] [address] [id number] [place] [address] 1897 August, [facility] [place] [facility] [address] [id number] [place] [address]- 2009 August, [facility] [place] [facility] [address] [id number] [place] [address]- 5037 August, [facility] [place] [facility] [address] [id number] [place] [address]- 9918 August, [facility] [place] [facility] [address] [id number] [place] [address]- 0455 August, [facility] [place] [facility] [address] [id number] [place] [address]- 6899 August, [facility] [place] [facility] [address] [id number] [place] [address]- 3834 August, [facility] [place] [facility] [address] [id number] [place] [address]- 3446 August, [facility] [place] [facility] [address] [id number] [place] [address]- 4211 Jul, [facility] [place] [facility] [address] [id number] [place] [address]- 4525 Jul, [facility] [place] [facility] [address] [id number] [place] [address]- 9078 Jul, [facility] [place] [facility] [address] [id number] [place] [address]- 2729 Jul, [facility] [place] [facility] [address] [id number] [place] [address]- 6878 Jul, [facility] [place] [facility] [address] [id number] [place] [address]- 0216 Jul, [facility] [place] [facility] [address] [id number] [place] [address]- 9212 Jun, [facility] [place] [facility] [address] [id number] [place] [address]- 1118 Jun, [facility] [place] [facility] [address] [id number] [place] [address]- 0291 May, [facility] [place] [facility] [address] [id number] [place] [address]- 8570 May, [facility] [place] [facility] [address] [id number] [place] [address]- 4715 Apr, [facility] [place] [facility] [address] [id number] [place] [address]- 7104 Apr, [facility] [place] [facility] [address] [id number] [place] [address]- 8707 Apr, [facility] [place] [facility] [address] [id number] [place] [address]- 6999 Apr, [facility] [address] [id number] [place] [address]- 5179 Apr, [facility] [address] [id number] [place] [address]- 1257 Apr, [facility] [address] [id number] [place] [address]- 0810 Apr, [facility] [address] [id number] [place] [address]- 2592 Apr, [facility] [address] [id number] [place] [address]- 3394 Apr, [facility] [address] [id number] [place] [address]- 5584 Apr, [facility] [address] [id number] [place] [address]- 0695 Apr, [facility] [address] [id number] [place] [address]- 0311 Apr, [facility] [address] [id number] [place] [address]- 8392 Apr, [facility] [address] [id number] [place] [address]- 2062 Mar, [facility] [address] [id number] [place] [address]- 8813 Mar, [facility] [address] [id number] [place] [address]- 8309 Mar, [facility] [address] [id number] [place] [address]- 7146 Mar, [facility] [address] [id number] [place] [address]- 2959 Feb, [facility] [address] [id number] [place] [address]- 0883 Feb, [facility] [place] [facility] [address] [id number] [place] [address]- 9416 08 Feb, 2013 [facility] [place] [facility] [address] [id number] [place] [address]- 3721 08 Feb, 2013 [facility] [place] [facility] [address] [id number] [place] [address]- 5691 14 Jan, 2013 [facility] [place] [facility] [address] [id number] [place] [address]- 0024 14 Jan, 2013 [facility] [place] [facility] [address] [id number] [place] [address]- 7530 Jan, [facility] [place] [facility] [address] [id number] [place] [address]- 7170 Jan, [facility] [place] [facility] [address] [id number] [place] [address]- 9047 Jan, [facility] [place] [facility] [address] [id number] [place] [address]- 9444 10 Jan, 2013 [facility] [place] [facility] [address] [id number] [place] [address]- 6678 Jan, [facility] [place] [facility] [address] [id number], [place] [address]- 2474 Jan, [facility] [place] [facility] [address] [id number], [place] [address]- 9933 Jan, [facility] [place] [facility] [address] [id number], [place] [address]- 3713 26 Dec, 2012 [facility] [place] [facility] [address] [id number] [place] [address]- 1419 16 Dec, 2012 [facility] [place] [facility] [address] [id number] [place] [address]- 0680 16 Dec, 2012 [facility] [place] [facility] [address] [id number], [place] [address]- 6896 13 Dec, 2012 [facility] [place] [facility] [address] [id number], [place] [address]- 1437 Nov, [facility] [address] [id number] [place] [address]- 2457 Nov, [facility] [address] [id number] [place] [address]- 0918 Nov, [facility] [address] [id number] [place] [address]- 3841 Nov, [facility] [address] [id number] [place] [address]- 1001 Oct, [facility] [address] [id number] [place] [address]- 4375 Sep, [facility] [address] [id number] [place] [address]- 9611 August, [facility] [address] [id number] [place] [address]- 9603 August, [facility] [address] [id number] [place] [address]- 4967 August, [facility] [address] [id number] [place] [address]- 1976 August, [facility] [address] [id number] [place] [address]- 5834 August, [facility] [address] [id number] [place] [address]- 2971 August, [facility] [place] [facility] [address] [id number] [place] [address]- 7769 August, [facility] [place] [facility] [address] [id number] [place] [address]- 2789 August, [facility] [place] [facility] [address] [id number] [place] [address]- 6855 August, [facility] [place] [facility] [address] [id number] [place] [address]- 7261 August, [facility] [place] [facility] [address] [id number] [place] [address]- 7088 08 Aug, 2012 [facility] [address] [id number] [place] [address]- 7846 August, [facility] [address] [id number] [place] [address]- 3090 Jul, [facility] [address] [id number] [place] [address]- 5635 Jul, [facility] [address] [id number] [place] [address]- 6802 Jul, [facility] [address] [id number] [place] [address]- 6146 Jul, [facility] [address] [id number] [place] [address]- 4447 Jul, [facility] [address] [id number] [place] [address]- 6790 Jul, [facility] [address] [id number] [place] [address]- 8917 Jul, [facility] [address] [id number] [place] [address]- 7890 Jul, [facility] [address] [id number] [place] [address]- 2523 Jul, [facility] [address] [id number] [place] [address]- 3619 Jul, [facility] [address] [id number] [place] [address]- 8192 Jul, [facility] [address] [id number] [place] [address]- 8195 Jun, [facility] [address] [id number] [place] [address]- 6026 Jun, [facility] [address] [id number] [place] [address]- 9679 Jun, [facility] [address] [id number] [place] [address]- 5382 Jun, [facility] [place] [facility] [address] [id number] [place] [address]- 4432 May, [facility] [place] [facility] [address] [id number] [place] [address]- 8509 May, [facility] [place] [facility] [address] [id number] [place] [address]- 3886 May, [facility] [place] [facility] [address] [id number] [place] [address]- 9783 May, [facility] [place] [facility] [address] [id number] [place] [address]- 6981 May, [facility] [place] [facility] [address] [id number] [place] [address]- 1652 May, [facility] [place] [facility] [address] [id number] [place] [address]- 3996 Apr, [facility] [place] [facility] [address] [id number] [place] [address]- 9210 Apr, [facility] [place] [facility] [address] [id number] [place] [address]- 3456 Apr, [facility] [place] [facility] [address] [id number] [place] [address]- 6700 Apr, [facility] [place] [facility] [address] [id number] [place] [address]- 5383 15 Mar, 2012 [facility] [place] [facility] [address] [id number] [place] [address]- 9526 Mar, [facility] [place] [facility] [address] [id number] [place] [address]- 4110 Mar, [facility] [place] [facility] [address] [id number] [place] 4511 Mar, [facility] [place] [facility] [address] [id number] [place] [address]- 8244 Mar, [facility] [place] [facility] [address] [id number] [place] [address]- 4553 Mar, [facility] [place] [facility] [address] [id number] [place] [address]- 8446 Mar, [facility] [place] [facility] [address] [id number] [place] [address]- 1959 Feb, [facility] [place] [facility] [address] [id number] [place] [address]- 2768 Feb, [facility] [place] [facility] [address] [id number] [place] [address]- 4148 Feb, [facility] [place] [facility] [address] [id number] [place] [address]- 8246 Feb, [facility] [place] [facility] [address] [id number] [place] [address]- 2537 Jan, [facility] [place] [facility] [address] [id number] [place] [address]- 7322 Jan, [facility] [place] [facility] [address] [id number] [place] [address]- 8333 Jan, [facility] [place] [facility] [address] [id number] [place] [address]- 0680 Jan, [facility] [place] [facility] [address] [id number] [place] [address]- 0127 Jan, [facility] [place] [facility] [address] [id number] [place] [address]- 2046 Jan, [facility] [place] [facility] [address] [id number] [place] [address]- 0679 Dec, [facility] [place] [facility] [address] [id number] [place] [address]- 2546 Dec, [facility] [place] [facility] [address] [id number] [place] [address]- 5759 Nov, [facility] [place] [facility] [address] [id number] [place] [address]- 4805 Sep, [facility] [place] [facility] [address] [id number] [place] [address]- 2999 August, [facility] [place] [facility] [address] [id number] [place] [address]- 5896 August, [facility] [place] [facility] [address] [id number] [place] [address]- 9724 August, [facility] [place] [facility] [address] [id number] [place] [address]- 2658 August, [facility] [place] [facility] [address] [id number] [place] [address]- 0444 August, [facility] [place] [facility] [address] [id number] [place] [address]- 5036 Jun, [facility] [place] [facility] [address] [id number] [place] [address]- 7279 Jun, [facility] [place] [facility] [address] [id number] [place] [address]- 1858 Apr, [facility] [place] [facility] [address] [id number] [place] [address]- 3440 Apr, [facility] [place] [facility] [address] [id number] [place] [address]- 6694 Mar, [facility] [place] [facility] [address] [id number], [place] [address]- 9468 Feb, [facility] [place] [facility] [address] [id number] [place] [address]- 6149 Feb, [facility] [place] [facility] [address] [id number] [place] [address]- 3542 Feb, [facility] [place] [facility] [address] [id number] [place] [address]- 3381 Jan, [facility] [place] [facility] [address] [id number], [place] [address] Jan, [facility] [address] [id number], [place] [address] Jan, [facility] [address] [id number], [place] [address] Jan, [facility] [id number], [place] [address] May, [facility] [id number], [place] [address] Mar, [facility] [id number], [place] [address] Oct, [facility] [id number], [place] [address] Sep, [facility] [id number], [place] [address] Mar, [facility] [id number], [place] [address] Jan, [facility] [id number], [place] [address] Jan, [facility] [address] [id number], [place] [address] May, IMMUNIZATIONS No Known Immunizations SOCIAL HISTORY Never Assessed REASON FOR VISIT UTI symptoms, right lower back pain. GINI Trujillo PLAN OF CARE Activity Details Follow Up 1 Week if not better Reason:UTI VITAL SIGNS Height 62 in 2017-10-03 Weight 178.2 lbs 2017-10-03 Temperature 97.5 degrees Fahrenheit 2017-10-03 Heart Rate 81 bpm 2017-10-03 Respiratory Rate 20 2017-10-03 BMI 32.59 kg/m2 2017-10-03 Blood pressure systolic 118 mmHg 2017-10-03 Blood pressure diastolic 68 mmHg 2017-10-03 MEDICATIONS Medication Instructions Dosage Frequency Start Date End Date Duration Status Naproxen 500 mg Orally every 12 hrs 1 tablet with food or milk as needed 12h Active Pyridium 200 mg Orally Three times a day 1 tablet after meals 8h Sep, Sep, 03 days Active Meclizine HCl 25 MG Orally Once a day 1 tablet as needed 24h Active Triamterene-HCTZ 37.5-25 MG Orally Once a day 1 tablet in the morning 24h 30 Active Cyclobenzaprine HCl 10 mg Orally Three times a day 1 tablet as needed 8h Active Levaquin 500 mg Orally Once a day 1 tablet 24h Sep, Sep, 03 days Active Hydrocodone-Acetaminophen 5-325 MG Orally 3 -4 times a day prn. must last 4 weeks 1 tablet as needed Jul, 28 days Active Pravastatin Sodium 20 mg Orally Once a day TAKE ONE TABLET BY MOUTH AT BEDTIME 24h 30 Active Amlodipine Besylate 5 mg Orally Once a day 1 tablet 24h Active RESULTS No Results PROCEDURES Procedure Date Ordered Result Body Site URINALYSIS, AUTO, W/O SCOPE October 03, 2017 URINE CULTURE/COLONY COUNT October 03, 2017 INSTRUCTIONS MEDICATIONS ADMINISTERED No Known Medications MEDICAL (GENERAL) HISTORY Type Description Date Medical History hypertension Medical History Colposcopy with loop electrode excision of the cervix was performed 06/2012, mild squamous atypia (no definite dyplasia). Performed at [facility] Dr. Joy. Medical History Acute suppurative [...]
--- OUTSIDE RECORDS SUMMARY | 2018-06-10 04:54 | XMS REPORT ---
Author Author KING BETI [facility] Address [address] [place] [address] Care Team Providers Care Instrument Shop Supervisor Name Role Phone BETI STAUFFER Unavailable PROBLEMS Type Condition ICD9-CM Code FOS34-CY Code Onset Dates Condition Status SNOMED Code Problem Hematuria, unspecified type R31.9 Active 67115148 Problem Anxiety F41.9 Active 72322614 Problem Abnormal renal ultrasound R93.429 Active 48453598911027519 Problem Abnormal glucose R73.09 Active 824344338 Problem 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 Active 404345317 Problem Hypokalemia E87.6 Active 55203148 Problem Neck pain M54.2 Active 73559817 Problem Neuroforaminal stenosis of spine M99.89 Active 919974901250 Problem Mixed hyperlipidemia E78.2 Active 91821625 Problem Essential hypertension I10 Active 47031502 ALLERGIES No Information ENCOUNTERS Encounter Location Date Diagnosis [facility] [address] [address]- [address] Dec, [facility] [address] 7[address]- [address]26 Nov, Hypokalemia E87.6 ; Mixed hyperlipidemia E78.2 and Hematuria , unspecified type R31.9 [facility] [id number] [place] [address] 73684- 0294 Nov, [facility] [address] 43123- 8529 Nov, Hypokalemia E87.6 [facility] [id number] [place] [address] 03865- 6962 Nov, [facility] [address] 53247- 5972 Nov, Abnormal renal ultrasound R93.429 [facility] [id number] [place] [address] 29655- 9518 Nov, Abnormal renal ultrasound R93.429 [facility] [id number] [place] [address] 16335- 8680 Nov, Hematuria, unspecified type R31.9 and Neuroforaminal stenosis of spine M99.89 [facility] [id number] [place] [address] 59494- 1641 Nov, Dysuria R30.0 [facility] [id number] [place] [address] 44801- 8438 Oct, Lateral epicondylitis, right elbow M77.11 [facility] [id number] [place] [address] 10054- 6558 Oct, Neuroforaminal stenosis of spine M99.89 ; Visit for TB skin test Z11.1 and Essential hypertension I10 [facility] [id number] [place] [address] 80819- 0495 Oct, [facility] [id number] [place] [address] 73019- 5934 Oct, Neuroforaminal stenosis of spine M99.89 [facility] [id number] [place] [address] 98982- 1278 Oct, Visit for TB skin test Z11.1 [facility] [id number] [place] [address] 80765- 0765 Oct, Cystitis without hematuria N30.90 [facility] [id number] [place] [address] 72292- 5190 Sep, Screening breast examination Z12.39 [facility] [id number] [place] [address] 18047- 4754 Sep, Dysuria R30.0 and Cystitis without hematuria N30.90 [facility] [id number] [place] [address] 00835- 5327 14 Sep, 2017 Essential hypertension I10 and Neuroforaminal stenosis of spine M99.89 [facility] [id number] [place] [address] 03525- 2003 04 Sep, 2017 Abnormal glucose R73.09 [facility] [id number] [place] [address] 53651- 8783 August, Lateral epicondylitis, right elbow M77.11 [facility] [address] 36305- 1116 August, Screen for STD (sexually transmitted disease) Z11.3 [facility] [address] 92422- 4709 August, Neuroforaminal stenosis of spine M99.89 ; Mixed hyperlipidemia E78.2 ; Elevated fasting glucose R73.01 ; Screening mammogram, encounter for Z12.31 and Encounter for well woman exam without gynecological exam Z00.00 [facility] [id number] [place] [address] 32828- 6942 August, Neuroforaminal stenosis of spine M99.89 [facility] [id number] [place] [address] 27719- 3079 August, Essential hypertension I10 ; Hypokalemia E87.6 and Mixed hyperlipidemia E78.2 [facility] [id number] [place] [address] 91990- 8793 Jul, [facility] [id number] [place] [address] 12629- 4610 Jul, Neuroforaminal stenosis of spine M99.89 [facility] [id number] [place] [address] 85454- 8090 Jul, Lateral epicondylitis, right elbow M77.11 [facility] [id number] [place] [address] 26368- 5553 Jul, [facility] [id number] [place] [address] 33243- 0211 Jun, High ankle sprain of right lower extremity, initial encounter S93.431A [facility] [facility] [address] 04308- 2301 Jun, Essential hypertension I10 [facility] [id number] [place] [address] 36949- 5158 Jun, [facility] [address] 99004- 1740 Jun, [facility] [address] 27821- 1655 Jun, Neuroforaminal stenosis of spine M99.89 [facility] [address] 16815- 9331 Jun, Pain of right upper extremity M79.601 and Essential hypertension I10 [facility] [address] 80324- 7387 Jun, [facility] [address] 57873- 2125 Jun, Dysuria R30.0 ; Acute cystitis with hematuria N30.01 and Screen for STD (sexually transmitted disease) Z11.3 [facility] [id number] [place] [address] 81378- 4454 May, 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 [facility] [id number] [place] [address] 17882- 5249 May, Essential hypertension I10 [facility] [id number] [place] [address] 36330- 2950 May, Neuroforaminal stenosis of spine M99.89 [facility] [id number] [place] [address] 37801- 7954 Apr, Allergic reaction, initial encounter T78.40XA [facility] [address] 04915- 5493 Apr, Low back pain, unspecified back pain laterality, unspecified chronicity, with sciatica presence unspecified M54.5 ; Acute cystitis with hematuria N30.01 ; Neuroforaminal stenosis of spine M99.89 ; Bilateral acute serous otitis media, recurrence not specified H65.03 ; Mixed hyperlipidemia E78.2 ; Essential hypertension I10 ; Immunization counseling Z71.89 and Encounter for immunization Z23 [facility] [id number] [place] [address] 88779- 0277 Apr, Neck pain M54.2 [facility] [address] 70021- 3101 Mar, Neuroforaminal stenosis of spine M99.89 [facility] [id number] [place] [address] 04411- 8620 Mar, Pharyngitis due to other organism J02.8 [facility] [id number] [place] [address] 16454- 2708 Feb, Neuroforaminal stenosis of spine M99.89 [facility] [id number] [place] [address] 75845- 1196 08 Feb, 2017 UTI (urinary tract infection) N39.0 [place] [facility] [address] [place] [address] 13695- 7758 07 Feb, 2017 Recent urinary tract infection Z87.440 ; Neuroforaminal stenosis of spine M99.89 ; Neck pain M54.2 ; 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 and Recurrent UTI N39.0 [facility] [id number] [place] [address] 60753- 2714 Feb, [facility] [id number] [place] [address] 17167- 2643 Jan, Neuroforaminal stenosis of spine M99.89 [facility] [id number] [place] [address] 50244- 9139 Dec, Neuroforaminal stenosis of spine M99.89 [facility] [id number] [place] [address] 85915- 0768 18 Dec, 2016 Acute seasonal allergic rhinitis due to pollen J30.1 [facility] [id number] [place] [address] 23008- 3678 08 Dec, 2016 [facility] [id number] [place] [address] 16705- 1213 Dec, Acute seasonal allergic rhinitis, unspecified trigger J30.2 ; Allergic conjunctivitis of both eyes H10.13 and Dysfunction of both eustachian tubes H69.83 [facility] [id number] [place] [address] 34695- 3625 Dec, [facility] [id number] [place] [address] 50202- 5018 Dec, Nevus D22.9 [facility] [address] 94893- 9392 Nov, 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 and Neuroforaminal stenosis of spine M99.89 [facility] [id number] [place] [address] 28735- 0400 Nov, Neuroforaminal stenosis of spine M99.89 ; Essential hypertension I10 ; Mixed hyperlipidemia E78.2 ; Hypokalemia E87.6 ; Neck pain M54.2 and Nevus D22.9 [facility] [id number] [place] [address] 75946- 5381 Oct, Neuroforaminal stenosis of spine M99.89 [facility] [id number] [place] [address] 67207- 6500 Sep, Neuroforaminal stenosis of spine M99.89 [facility] [id number] [place] [address] 16374- 4594 Sep, [facility] [id number] [place] [address] 72960- 4306 August, [facility] [address] [address]- 7483 August, Neck pain M54.2 and Neuroforaminal stenosis of spine M99.89 [facility] [id number] [place] [address] 00610- 5860 August, Routine gynecological examination Z01.419 and Screening breast examination Z12.39 [facility] [id number] [place] [address] 09236- 5183 Jul, [facility] [id number] [place] [address] 85326- 3664 Jul, [facility] [id number] [place] [address] 67714- 6982 Jul, Neuroforaminal stenosis of spine M99.89 [facility] [id number] [place] [address] 09574- 4122 Jul, [facility] [id number] [place] [address] 75697- 4631 Jul, 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 [facility] [id number] [place] [address] 24624- 0265 Jul, [facility] [id number] [place] [address] 56200- 6844 Jul, [facility] [id number] [place] [address] 81650- 7263 Jun, Neuroforaminal stenosis of spine M99.89 [facility] [id number] [place] [address] 26582- 8674 Jun, Uterine leiomyoma, unspecified location D25.9 and Allergic reaction caused by a drug, initial encounter T78.40XA [facility] [id number] [address]- 7616 Jun, [facility] [id number] [place] [address] 18386- 0617 May, UTI symptoms R39.9 and Pain of right sacroiliac joint M53.3 [facility] [id number] [place] [address] 52374- 7089 May, Neuroforaminal stenosis of spine M99.89 [facility] [id number] [place] [address] 17185- 2383 May, [facility] [address] 72729- 9650 May, Acute mucoid otitis media of left ear H65.112 and Acute non- recurrent maxillary sinusitis J01.00 [facility] [address] 59540- 6767 May, Acute bacterial conjunctivitis of both eyes H10.33 ; Left arm pain M79.602 and Hypokalemia E87.6 [facility] [address] 17025- 0081 Apr, [facility] [address] 46780- 3641 Apr, Neuroforaminal stenosis of spine M99.89 ; Neck pain M54.2 ; 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 ; Mixed hyperlipidemia E78.2 ; Essential hypertension I10 and Hypokalemia E87.6 [facility] [id number] [place] [address] 28442- 6722 Mar, Oral candidiasis B37.0 ; Neuroforaminal stenosis of spine M99.89 ; Neck pain M54.2 and 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 [facility] [id number] [place] [address] 99607- 4700 Feb, [facility] [address] 21885- 1755 Feb, [facility] [id number] [place] [address] 21107- 7809 Feb, UTI (urinary tract infection) N39.0 [facility] [address] [place] [address] 08676- 2330 09 Feb, 2016 Dysuria R30.0 [facility] [id number] [place] [address] 64859- 0257 Feb, Dysuria R30.0 [facility] [id number] [place] [address] 15088- 3618 Feb, Neuroforaminal stenosis of spine M99.89 ; Neck pain M54.2 ; Essential hypertension I10 ; 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 ; Dysuria R30.0 ; Abnormal MRI, shoulder R93.8 and Acute cystitis without hematuria N30.00 [facility] [id number] [place] [address] 95915- 3350 Jan, [facility] [id number] [place] [address] 53030- 9545 Jan, [facility] [id number] [place] [address] 99304- 8686 Jan, [facility] [id number] [place] [address] 81813- 8414 Jan, Abnormal MRI R93.8 [facility] [id number] [place] [address] 29490- 0095 29 Dec, 2015 [facility] [address] [place] [address] 83933 -8494 15 Dec, 2015 Acute pain of left shoulder M25.512 [facility] [id number] [place] [address] 61348- 8201 09 Dec, 2015 [facility] [id number] [place] [address] 30925- 3289 08 Dec, 2015 [facility] [id number] [place] [address] 26468- 7683 07 Dec, 2015 Acute pain of left shoulder M25.512 [facility] [id number] [address]- 1843 Nov, [facility] [address] [id number], [place] [address]- 3027 Nov, Neuroforaminal stenosis of spine M99.89 ; Neck pain M54.2 ; Abnormal mammogram R92.8 ; Essential hypertension I10 and 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 [facility] [address] [facility] [id number], [place] [address]- 2738 Nov, [facility] [address] [id number], [place] [address]- 1112 Oct, Acute stress disorder F43.0 [facility] [id number] [place] [address] 68649- 7102 Oct, [facility] [id number] [address]- 6808 Oct, [facility] [id number] [place] [address] 01123- 2303 Oct, [facility] [id number] [address]- 2257 Sep, [facility] [id number] [address]- 2254 August, [facility] [id number] [address]- 8792 Jul, Neuroforaminal stenosis of spine M99.89 ; Neck pain M54.2 ; Abnormal mammogram R92.8 and Essential hypertension I10 [facility] [address] [facility] [id number], [place] [address]- 7490 Jul, [facility] [address] [facility] [id number], [place] [address]- 5282 Jul, [facility] [id number] [address]- 6518 Jul, Abnormal mammogram R92.8 [facility] [id number]- 9132 08 Jul, 2015 [facility] [address] [place] [address] 29319- 8158 Jul, UTI (urinary tract infection) N39.0 [facility] [address]- 9469 Jul, Dysuria R30.0 [facility] [id number] [place] [address] 46295- 6810 Jun, [facility] [address] [place] [address] 52676- 4673 Jun, [facility] [id number] [place] [address] 70855- 9809 Jun, Hypokalemia E87.6 and Hematuria R31.9 [facility] [id number] [place] [address] 14848- 5251 Jun, Hypokalemia E87.6 [facility] [place] [address] [place] [address] 28006- 8700 Jun, [facility] [id number] [place] [address] 13389- 6554 Jun, Hypokalemia E87.6 [facility] [place] [address], [place] [address]- 0891 Jun, Hypokalemia E87.6 [facility] [place] [address] [place] [address] 49961- 2451 15 Jun, 2015 Neuroforaminal stenosis of spine M99.89 ; Hypokalemia E87.6 ; Neck pain M54.2 ; Essential hypertension I10 ; Mixed hyperlipidemia E78.2 and Screening breast examination Z12.39 [facility] [facility] [address], [place] [address]- 5020 08 Jun, 2015 Dysuria R30.0 ; UTI (urinary tract infection) N39.0 and Hematuria R31.9 [facility] [address] [place] [address] 05144- 6703 May, [facility] [address] 34092- 5480 May, High risk sexual behavior Z72.51 ; Hypokalemia E87.6 ; Neuroforaminal stenosis of spine M99.89 ; Neck pain M54.2 ; Essential hypertension I10 ; Mixed hyperlipidemia E78.2 ; STD exposure Z20.2 and Concern about STD in female without diagnosis Z71.1 [facility] [id number] [place] [address] 65559- 9547 16 May, 2015 Neuroforaminal stenosis of spine M99.89 ; Neck pain M54.2 ; Hypokalemia E87.6 ; Essential hypertension I10 and Mixed hyperlipidemia E78.2 [facility] [place] [id number] [place] [address] 08083- 2627 May, [facility] [id number] [place] [address] 89614 -3073 08 May, 2015 High risk sexual behavior Z72.51 ; STD exposure Z20.2 and Concern about STD in female without diagnosis Z71.1 [facility] [place] [id number] [place] [address] 16319- 9494 May, [facility] [id number] [place] [address] 01523- 4361 Apr, Neuroforaminal stenosis of spine M99.89 ; Mixed hyperlipidemia E78.2 ; Essential hypertension I10 and Hypokalemia E87.6 [facility] [place] [id number] [place] [address] 64831- 9743 Mar, [facility] [id number] [place] [address] 16179- 6411 Mar, Hypokalemia E87.6 [facility] [id number] [place] [address] 86614- 8566 Mar, Neuroforaminal stenosis of spine M99.89 ; Mixed hyperlipidemia E78.2 ; Neck pain M54.2 ; Essential hypertension I10 ; Abnormal fasting glucose R73.09 ; Hypokalemia E87.6 and Constipation K59.00 [facility] [address] 66160- 1864 Feb, Neuroforaminal stenosis of spine M99.89 ; Mixed hyperlipidemia E78.2 ; Neck pain M54.2 ; Essential hypertension I10 ; Abnormal fasting glucose R73.09 ; Hypokalemia E87.6 and Constipation K59.00 [facility] [address] 17591- 5478 Feb, Elevated fasting blood sugar R73.01 [facility] [address] 65639- 6594 Feb, Elevated fasting blood sugar R73.01 [facility] [address] 34863- 0136 Feb, Hair loss L65.9 [facility] [address] 33362- 7147 Feb, Sinusitis J32.9 ; Essential hypertension I10 and Hair loss L65.9 [facility] [address] 16535- 6357 Jan, [facility] [address] 43692- 6533 Jan, Essential hypertension I10 ; Neuroforaminal stenosis of spine M99.89 ; Neck pain M54.2 ; Mixed hyperlipidemia E78.2 and Anxiety F41.9 [facility] [address] 64789- 7249 Jan, [facility] [address] 86444- 5007 Jan, Mixed hyperlipidemia E78.2 ; Essential (primary) hypertension I10 ; Strain of muscle, fascia and tendon at neck level, subsequent encounter S16.1XXD and Tension-type headache, unspecified, not intractable G44.209 [facility] [id number] [place] [address] 60451- 9915 Dec, Lumbar back pain 724.2 and Neuroforaminal stenosis of spine 724.00 [facility] [id number] [place] [address] 27917- 6760 Nov, [facility] [id number] [place] [address] 42278- 4653 Nov, Lumbar back pain 724.2 and Neuroforaminal stenosis of spine 724.00 [facility] [address] 37417- 8011 Nov, Edema 782.3 ; Lumbar back pain 724.2 ; Essential hypertension, benign 401.1 ; Hyperlipemia 272.4 ; Neuroforaminal stenosis of spine 724.00 and Post-concussion headache 339.20 [facility] [id number] [place] [address] 74923- 9146 Nov, [facility] [id number] [place] [address] 53112- 4274 Nov, [facility] [id number] [place] [address] 58764- 1785 Oct, Essential hypertension, benign 401.1 [facility] [id number] [place] [address] 90446- 0238 Oct, Edema 782.3 ; Lumbar back pain 724.2 ; Essential hypertension, benign 401.1 ; Hyperlipemia 272.4 ; Neuroforaminal stenosis of spine 724.00 and Post-concussion headache 339.20 [facility] [id number] [place] [address] 00823- 1096 Oct, [facility] [id number] [place] [address] 95238- 9451 Oct, Edema 782.3 [facility] [id number] [place] [address] 96761- 4404 Oct, Lumbar back pain 724.2 [facility] [address] [place] [address] 14795- 4142 Oct, Cervicalgia 723.1 ; Lumbar back pain 724.2 and High risk medication use V58.69 [facility] [address], [place] [address]- 9397 Sep, [facility] [id number] [place] [address] 93413- 0124 Sep, Lumbar strain 847.2 [facility] [id number] [place] [address] 378737- 1220 August, Edema 782.3 and Eustachian tube dysfunction 381.81 [facility] [address] [place] [address] 24214- 2102 August, [facility] [id number] [place] [address] 40339- 3352 August, Eustachian tube dysfunction 381.81 [facility] [address] [place] [address] 87094- 5968 Jul, Otalgia 388.70 and Otitis media 382.9 [facility] [address] [place] [address] 34028- 5046 Jul, [facility] [id number] [place] [address] [id number]- 6150 Jul, [facility] [id number], [place] [address] Jul, [facility] [id number] [place] [address] 53017- 9170 Jul, [facility] [id number] [id number] [id number] Jul, [facility] [id number] [place] [address] 37466- 9155 Jun, [facility] [place] [facility] [address] [id number] [place] [address] Jun, [facility] [place] [facility] [address] [id number] [place] [address] Jun, [facility] [place] [facility] [address] [id number] [place] [address] May, 2014 [facility] [place] [facility] [address] [id number] [place] [address] May, 2014 [facility] [place] [facility] [address] [id number] [place] [address]- [address] May, 2014 [facility] [place] [facility] [address] [id number] [place] [address]- 1771 May, 2014 [facility] [place] [facility] [address] [id number] [place] [address]- [address]25 May, 2014 [facility] [place] [facility] [address] [id number] [place] [address]- [address]14 May, 2014 [facility] [place] [facility] [address] [id number] [place] [address]- 0344 May, [facility] [place] [facility] [address] [id number] [place] [address]- 9600 May, [facility] [place] [facility] [address] [id number] [place] [address]- 2800 May, 2014 [facility] [place] [facility] [address] [id number] [place] [address]- [address]30 May, [facility] [place] [facility] [address] [id number] [place] [address]- [address]40 Apr, [facility] [place] [facility] [address] [id number] [place] [address]- [address]395 Apr, [facility] [place] [facility] [address] [id number] [place] [address] Apr, [facility] [place] [facility] [address] [id number] [place] [address] Apr, [facility] [address] [id number] [place] [address] Apr, [facility] [place] [facility] [address] [id number] [place] [address] Apr, [facility] [address] [id number] [place] [address] 9[address] Apr, [facility] [address] [id number] [place] [address] Apr, [facility] [address] [id number] [place] [address]- 0928 Apr, [facility] [address] [id number] [place] [address] Apr, [facility] [address] [id number] [place] [address] 4732 Apr, [facility] [address] [id number] [place] [address] 4[address] Apr, [facility] [address] [id number] [place] [address] 0749 Apr, [facility] [address] [id number] [place] [address]- 2094 Apr, [facility] [address] [id number] [place] [address]- 6573 Apr, [facility] [address] [id number] [place] [address] 1371 Mar, [facility] [place] [facility] [address] [id number] [place] [address]- 5643 Mar, [facility] [place] [facility] [address] [id number] [place] [address] 8332 Mar, [facility] [address] [id number] [place] [address] Mar, [facility] [place] [facility] [address] [id number] [place] [address] Feb, [facility] [place] [facility] [address] [id number] [place] [address]- 7735 Feb, [facility] [place] [facility] [address] [id number] [place] [address] Feb, [facility] [place] [facility] [address] [id number] [place] [address]- 8079 Feb, [facility] [place] [facility] [address] [id number] [place] [address]- 2459 Jan, [facility] [place] [facility] [address] [id number] [place] [address]- 8915 Jan, [facility] [place] [facility] [address] [id number] [place] [address]- 1705 Jan, [facility] [place] [facility] [address] [id number], [place] [address]8 Jan, [facility] [place] [facility] [address] [id number] [place] [address]- 3029 Jan, [facility] [place] [facility] [address] [id number], [place] [address] 6[address] Jan, [facility] [place] [facility] [address] [id number], [place] [address] Jan, [facility] [place] [facility] [address] [id number], [place] [address]- 4772 Jan, [facility] [place] [facility] [address] [id number] [place] [address]- 6384 Dec, [facility] [place] [facility] [address] [id number] [place] [address]- 5028 Dec, [facility] [place] [facility] [address] [facility] [id number] [address] Dec, [facility] [place] [facility] [address] [id number], [place] [address] 04 Dec, 2013 [facility] [place] [facility] [address] [id number] [place] [address]- 9654 Oct, 2013 [facility] [place] [facility] [address] [id number] [place] [address]- 6064 Oct, [facility] [place] [facility] [address] [id number] [place] [address]- 0481 Oct, 2013 [facility] [place] [facility] [address] [id number] [place] [address]- 0529 Oct, 2013 [facility] [place] [facility] [address] [id number] [place] [address]- 5738 Oct, [facility] [place] [facility] [address] [id number] [place] [address]- 3314 Oct, [facility] [place] [facility] [address] [id number] [place] [address]- 7291 Oct, [facility] [place] [facility] [address] [id number] [place] [address]- 1383 Oct, [facility] [place] [facility] [address] [id number] [place] [address]- 8768 Sep, [facility] [place] [facility] [address] [id number] [place] [address] Sep, [facility] [place] [facility] [address] [id number] [place] [address]- 7344 Sep, [facility] [place] [facility] [address] [id number] [place] [address]- 8123 Sep, [facility] [place] [facility] [address] [id number] [place] [address]- 2115 Sep, [facility] [place] [facility] [address] [id number] [place] [address]- 2823 Sep, [facility] [place] [facility] [address] [id number] [place] [address]- 6137 Sep, [facility] [place] [facility] [address] [id number] [place] [address]- 4700 Sep, [facility] [place] [facility] [address] [id number] [place] [address]- 2535 Sep, [facility] [place] [facility] [address] [id number] [place] [address]- 3027 Sep, [facility] [place] [facility] [address] [id number] [place] [address]- 1329 August, [facility] [place] [facility] [address] [id number] [place] [address]- 2953 August, [facility] [place] [facility] [address] [id number] [place] [address]- 1375 August, [facility] [place] [facility] [address] [id number] [place] [address]- 6366 August, [facility] [place] [facility] [address] [id number] [place] [address]- 6592 August, [facility] [place] [facility] [address] [id number] [place] [address]- 7087 August, [facility] [place] [facility] [address] [id number] [place] [address]- 7933 August, [facility] [place] [facility] [address] [id number] [place] [address]- 5508 August, [facility] [place] [facility] [address] [id number] [place] [address]- 7325 August, [facility] [place] [facility] [address] [id number] [place] [address] August, [facility] [place] [facility] [address] [id number] [place] [address] August, [facility] [place] [facility] [address] [id number] [place] [address]- 7036 August, [facility] [place] [facility] [address] [id number] [place] [address]- 5467 Jul, [facility] [place] [facility] [address] [id number] [place] [address]- 9566 Jul, [facility] [place] [facility] [address] [id number] [place] [address]- 3112 Jul, [facility] [place] [facility] [address] [id number] [place] [address]- 3837 Jul, [facility] [place] [facility] [address] [id number] [place] [address]- 9717 Jul, [facility] [place] [facility] [address] [id number] [place] [address]- 8820 Jul, [facility] [place] [facility] [address] [id number] [place] [address]- 1069 Jun, [facility] [place] [facility] [address] [id number] [place] [address]- 5431 Jun, [facility] [place] [facility] [address] [id number] [place] [address]- 1380 May, [facility] [place] [facility] [address] [id number] [place] [address]- 8997 May, [facility] [place] [facility] [address] [id number] [place] [address]- 8044 Apr, [facility] [place] [facility] [address] [id number] [place] [address]- 6575 Apr, [facility] [place] [facility] [address] [id number] [place] [address]- 0980 Apr, [facility] [place] [facility] [address] [id number] [place] [address]- 3632 Apr, [facility] [place] [facility] [address] [id number] [place] [address]- 7048 Apr, [facility] [place] [facility] [address] [id number] [place] [address]- 9313 Apr, [facility] [place] [facility] [address] [id number] [place] [address]- 5303 Apr, [facility] [address] [id number] [place] [address]- 3517 Apr, [facility] [address] [id number] [place] [address]- 1271 Apr, [facility] [address] [id number] [place] [address]- 1000 Apr, [facility] [address] [id number] [place] [address]- 7946 Apr, [facility] [address] [id number] [place] [address]- 1412 Apr, [facility] [address] [id number] [place] [address]- 6535 Apr, [facility] [address] [id number] [place] [address]- 2041 Mar, [facility] [address] [id number] [place] [address]- 0430 Mar, [facility] [address] [id number] [place] [address]- 8199 Mar, [facility] [address] [id number] [place] [address]- 3006 Mar, [facility] [address] [id number] [place] [address]- 7301 Feb, [facility] [address] [id number] [place] [address]- 0750 Feb, [facility] [place] [facility] [address] [id number] [place] [address]- 9115 Feb, [facility] [place] [facility] [address] [id number] [place] [address]- 4532 08 Feb, 2013 [facility] [place] [facility] [address] [id number] [place] [address]- 3704 14 Jan, 2013 [facility] [place] [facility] [address] [id number] [place] [address]- 8091 14 Jan, 2013 [facility] [place] [facility] [address] [id number] [place] [address]- 8778 11 Jan, 2013 [facility] [place] [facility] [address] [id number] [place] [address]- 1089 11 Jan, 2013 [facility] [place] [facility] [address] [id number] [place] [address]- 0228 10 Jan, 2013 [facility] [place] [facility] [address] [id number] [place] [address]- 8576 10 Jan, 2013 [facility] [place] [facility] [address] [id number] [place] [address]- 0172 09 Jan, 2013 [facility] [place] [facility] [address] [id number] [place] [address]- 9366 09 Jan, 2013 [facility] [place] [facility] [address] [id number] [place] [address]- 3088 Jan, [facility] [place] [facility] [address] [id number] [place] [address]- 9723 26 Dec, 2012 [facility] [place] [facility] [address] [id number] [place] [address]- 1120 16 Dec, 2012 [facility] [place] [facility] [address] [id number] [place] [address]- 2211 16 Dec, 2012 [facility] [place] [facility] [address] [id number], [place] [address]- 5293 13 Dec, 2012 [facility] [place] [facility] [address] [id number] [place] [address]- 0754 17 Nov, 2012 [facility] [place] [facility] [address] [id number] [place] [address]- 6943 17 Nov, 2012 [facility] [place] [facility] [address] [id number], [place] [address]- 8331 14 Nov, 2012 [facility] [place] [facility] [address] [id number], [place] [address]- 9529 Nov, [facility] [address] [id number] [place] [address]- 9949 Oct, [facility] [address] [id number] [place] [address]- 0944 Sep, [facility] [address] [id number] [place] [address]- 5248 August, [facility] [address] [id number] [place] [address]- 5008 August, [facility] [address] [id number] [place] [address]- 4556 August, [facility] [address] [id number] [place] [address]- 5334 August, [facility] [address] [id number] [place] [address]- 6334 August, [facility] [address] [id number] [place] [address]- 5425 August, [facility] [address] [id number] [place] [address]- 9699 August, [facility] [address] [id number] [place] [address]- 6870 August, [facility] [address] [id number] [place] [address]- 4498 August, [facility] [address] [id number] [place] [address]- 3388 August, [facility] [address] [id number] [place] [address]- 4407 August, [facility] [address] [id number] [place] [address]- 2958 August, [facility] [address] [id number] [place] [address]- 2426 Jul, [facility] [address] [id number] [place] [address]- 6356 Jul, [facility] [address] [id number] [place] [address]- 4620 18 Jul, 2012 [facility] [address] [id number] [place] [address]- 8516 15 Jul, 2012 [facility] [address] [id number] [place] [address]- 2193 Jul, [facility] [address] [id number] [place] [address]- 9375 08 Jul, 2012 [facility] [address] [id number] [place] [address]- 8987 Jul, [facility] [address] [id number] [place] [address]- 4789 Jul, [facility] [address] [id number] [place] [address]- 1098 Jul, [facility] [address] [id number] [place] [address]- 5922 Jul, [facility] [address] [id number] [place] [address]- 9856 Jul, [facility] [address] [id number] [place] [address]- 1755 Jun, [facility] [place] [facility] [address] [id number] [place] [address]- 1194 Jun, [facility] [address] [id number] [place] [address]- 5645 Jun, [facility] [place] [facility] [address] [id number] [place] [address]- 4729 Jun, [facility] [place] [facility] [address] [id number] [place] [address]- 3856 28 May, 2012 [facility] [place] [facility] [address] [id number] [place] [address]- 0196 14 May, 2012 [facility] [place] [facility] [address] [id number] [place] [address]- 5445 05 May, 2012 [facility] [place] [facility] [address] [id number] [place] [address]- 1266 04 May, 2012 [facility] [place] [facility] [address] [id number] [place] [address]- 9266 May, [facility] [place] [facility] [address] [id number] [place] [address]- 4389 May, [facility] [place] [facility] [address] [id number] [place] [address]- 5539 Apr, [facility] [place] [facility] [address] [id number] [place] [address]- 0924 Apr, [facility] [place] [facility] [address] [id number] [place] [address]- 6775 Apr, [facility] [place] [facility] [address] [id number] [place] [address]- 7060 Apr, [facility] [place] [facility] [address] [id number] [place] [address]- 2983 15 Mar, 2012 [facility] [place] [facility] [address] [id number] [place] [address]- 3691 14 Mar, 2012 [facility] [place] [facility] [address] [id number] [place] [address]- 8264 14 Mar, 2012 [facility] [place] [facility] [address] [id number] [place] [address]- 3075 14 Mar, 2012 [facility] [place] [facility] [address] [id number] [place] [address]- 9243 14 Mar, 2012 [facility] [place] [facility] [address] [id number] [place] [address]- 8665 06 Mar, 2012 [facility] [place] [facility] [address] [id number] [place] [address]- 7975 06 Mar, 2012 [facility] [place] [facility] [address] [id number] [place] [address]- 6844 Feb, [facility] [place] [facility] [address] [id number] [place] [address]- 9361 Feb, [facility] [place] [facility] [address] [id number] [place] [address]- 2225 Feb, [facility] [place] [facility] [address] [id number] [place] [address]- 8004 Feb, [facility] [place] [facility] [address] [id number] [place] [address]- 5249 Jan, [facility] [place] [facility] [address] [id number] [place] [address]- 6207 Jan, [facility] [place] [facility] [address] [id number] [place] [address]- 4743 Jan, [facility] [place] [facility] [address] [id number] [place] [address]- 8389 Jan, [facility] [place] [facility] [address] [id number] [place] [address]- 7715 Jan, [facility] [place] [facility] [address] [id number] [place] [address]- 1840 Jan, [facility] [place] [facility] [address] [id number] [place] [address]- 1953 Dec, [facility] [place] [facility] [address] [id number] [place] [address]- 3821 Dec, [facility] [place] [facility] [address] [id number] [place] [address]- 9340 Nov, [facility] [place] [facility] [address] [id number] [place] [address]- 4240 Sep, [facility] [place] [facility] [address] [id number] [place] [address]- 0350 August, [facility] [place] [facility] [address] [id number] [place] [address]85 August, [facility] [place] [facility] [address] [id number] [place] [address]- 6860 August, [facility] [place] [facility] [address] [id number] [place] [address]- 6144 August, [facility] [place] [facility] [address] [id number] [place] [address]- 6218 August, [facility] [place] [facility] [address] [id number] [place] [address]- 3717 Jun, [facility] [place] [facility] [address] [id number] [place] [address]- 0554 Jun, [facility] [place] [facility] [address] [id number] [place] [address]- 6178 Apr, [facility] [place] [facility] [address] [id number] [place] [address]- 2485 Apr, [facility] [place] [facility] [address] [id number] [place] [address]- 4100 Mar, [facility] [place] [facility] [address] [id number] [place] [address]- 0370 Feb, [facility] [place] [facility] [address] [id number], [place] [address]- 4614 Feb, [facility] [place] [facility] [address] [id number], [place] [address]- 4531 Feb, [facility] [place] [facility] [address] [id number], [place] [address]- 6909 17 Jan, 2011 [facility] [place] [facility] [address] [id number] [place] [address]- 4304 15 Jan, 2011 [facility] [place] [facility] [address] [id number] [place] [address]- 6205 15 Jan, 2011 [facility] [place] [facility] [address] [id number], [place] [address]- 9592 14 Jan, 2011 [facility] [place] [facility] [address] [id number], [place] [address] 15 May, 2010 [facility] [address] [id number] [address] Mar, [facility] [id number], [place] [address] Oct, [facility] [id number], [place] [address] Sep, [facility] [id number] [place] [id number] Mar, [facility] [id number] [place] [id number] Jan, [facility] [id number] [place] [id number] Jan, [facility] [id number], [place] [address] May, IMMUNIZATIONS No Known Immunizations SOCIAL HISTORY Never Assessed REASON FOR VISIT Deferred Mammo PLAN OF CARE VITAL SIGNS MEDICATIONS Unknown Medications RESULTS No Results PROCEDURES No Known procedures INSTRUCTIONS MEDICATIONS ADMINISTERED No Known Medications MEDICAL (GENERAL) HISTORY Type Description Date Medical History hypertension Medical History Colposcopy with loop electrode excision of the cervix was performed 06/2012, mild squamous atypia (no definite dyplasia). Performed at [facility] Dr. Joy. Medical History Acute suppurative otitis [...]
--- OUTSIDE RECORDS SUMMARY | 2018-06-10 04:55 | XMS REPORT ---
Author Author KING BETI 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 Director Name Role Phone BETI STAUFFER Unavailable PROBLEMS Type Condition ICD9-CM Code OBT61-BT Code Onset Dates Condition Status SNOMED Code Problem Hematuria, unspecified type R31.9 Active 36531908 Problem Anxiety F41.9 Active 43959405 Problem Abnormal renal ultrasound R93.429 Active [id number] Problem Abnormal glucose R73.09 Active 129052250 Problem 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 Active 823694314 Problem Hypokalemia E87.6 Active 25832987 Problem Neck pain M54.2 Active 48097313 Problem Neuroforaminal stenosis of spine M99.89 Active 423597031885 Problem Mixed hyperlipidemia E78.2 Active 37433711 Problem Essential hypertension I10 Active 38492781 ALLERGIES No Information ENCOUNTERS Encounter Location Date Diagnosis [facility] [address] [address]- [address] Nov, [facility] [id number] [place] [address] 00442- 9981 Nov, [facility] [id number] [place] [address] 73409- 7032 Nov, Hypokalemia E87.6 [facility] [id number] [place] [address] 37953- 1412 Nov, [facility] [id number] [place] [address] 90302- 4165 Nov, Abnormal renal ultrasound R93.429 [facility] [id number] [place] [address] 03665- 9784 Nov, Abnormal renal ultrasound R93.429 [facility] [id number] [place] [address] 90850- 8535 09 Nov, 2017 Hematuria, unspecified type R31.9 and Neuroforaminal stenosis of spine M99.89 [facility] [id number] [place] [address] 96108- 4347 Nov, Dysuria R30.0 [facility] [id number] [place] [address] 46010- 6894 Oct, Lateral epicondylitis, right elbow M77.11 [facility] [id number] [place] [address] 95339- 7054 Oct, Visit for TB skin test Z11.1 ; Neuroforaminal stenosis of spine M99.89 and Essential hypertension I10 [facility] [id number] [place] [address] 31003- 2760 16 Oct, 2017 [facility] [id number] [place] [address] 22770- 2944 Oct, Neuroforaminal stenosis of spine M99.89 [facility] [id number] [place] [address] 83237- 1721 Oct, Visit for TB skin test Z11.1 [facility] [id number] [place] [address] 37066- 9551 05 Oct, 2017 Cystitis without hematuria N30.90 [facility] [id number] [place] [address] 94017- 9810 Sep, Screening breast examination Z12.39 [facility] [id number] [place] [address] 29005- 5068 Sep, Dysuria R30.0 and Cystitis without hematuria N30.90 [facility] [id number] [place] [address] 37998- 7522 14 Sep, 2017 Essential hypertension I10 and Neuroforaminal stenosis of spine M99.89 [facility] [id number] [place] [address] 24568- 9822 Sep, Abnormal glucose R73.09 [facility] [id number] [place] [address] 05507- 8010 August, Lateral epicondylitis, right elbow M77.11 [facility] [id number] [place] [address] 41931- 6462 August, Screen for STD (sexually transmitted disease) Z11.3 [facility] [address] 09711- 7797 August, Neuroforaminal stenosis of spine M99.89 ; Mixed hyperlipidemia E78.2 ; Elevated fasting glucose R73.01 ; Screening mammogram, encounter for Z12.31 and Encounter for well woman exam without gynecological exam Z00.00 [facility] [id number] [place] [address] 68414- 6608 August, Neuroforaminal stenosis of spine M99.89 [facility] [id number] [place] [address] 59085- 1340 August, Essential hypertension I10 ; Hypokalemia E87.6 and Mixed hyperlipidemia E78.2 [facility] [id number] [place] [address] 42372- 9787 Jul, [facility] [id number] [place] [address] 08498- 8278 Jul, Neuroforaminal stenosis of spine M99.89 [facility] [id number] [place] [address] 45864- 6969 Jul, Lateral epicondylitis, right elbow M77.11 [facility] [id number] [place] [address] 87466- 8185 Jul, [facility] [id number] [place] [address] 52357- 5620 Jun, High ankle sprain of right lower extremity, initial encounter S93.431A [facility] [address] 43790- 2685 Jun, Essential hypertension I10 [facility] [id number] [place] [address] 69178- 7015 Jun, [facility] [id number] [place] [address] 72601- 4684 Jun, [facility] [id number] [place] [address] 73392- 7331 Jun, Neuroforaminal stenosis of spine M99.89 [facility] [id number] [place] [address] 89828- 9248 Jun, Pain of right upper extremity M79.601 and Essential hypertension I10 [facility] [id number] [place] [address] 30798- 7877 Jun, [facility] [address] 19901- 4198 Jun, Dysuria R30.0 ; Acute cystitis with hematuria N30.01 and Screen for STD (sexually transmitted disease) Z11.3 [facility] [id number] [place] [address] 38252- 1490 May, 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 [facility] [id number] [place] [address] 18473- 0722 May, Essential hypertension I10 [facility] [id number] [place] [address] 48583- 4181 May, Neuroforaminal stenosis of spine M99.89 [facility] [id number] [place] [address] 11978- 1659 Apr, Allergic reaction, initial encounter T78.40XA [facility] [id number] [place] [address] 96025- 8493 Apr, Low back pain, unspecified back pain laterality, unspecified chronicity, with sciatica presence unspecified M54.5 ; Acute cystitis with hematuria N30.01 ; Neuroforaminal stenosis of spine M99.89 ; Bilateral acute serous otitis media, recurrence not specified H65.03 ; Mixed hyperlipidemia E78.2 ; Essential hypertension I10 ; Immunization counseling Z71.89 and Encounter for immunization Z23 [facility] [id number] [place] [address] 30018- 2163 08 Apr, 2017 Neck pain M54.2 [facility] [id number] [place] [address] 56615- 6134 Mar, Neuroforaminal stenosis of spine M99.89 [facility] [id number] [place] [address] 37046- 5958 Mar, Pharyngitis due to other organism J02.8 [facility] [address] 80125- 9212 Feb, Neuroforaminal stenosis of spine M99.89 [facility] [id number] [place] [address] 37012- 6203 Feb, UTI (urinary tract infection) N39.0 [facility] [id number] [place] [address] 37961- 9537 07 Feb, 2017 Recent urinary tract infection Z87.440 ; Neuroforaminal stenosis of spine M99.89 ; Neck pain M54.2 ; 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 and Recurrent UTI N39.0 [facility] [id number] [place] [address] 11906- 7845 Feb, [facility] [id number] [place] [address] 62125- 5268 Jan, Neuroforaminal stenosis of spine M99.89 [facility] [id number] [place] [address] 09192- 4868 28 Dec, 2016 Neuroforaminal stenosis of spine M99.89 [facility] [id number] [place] [address] 65427- 7651 18 Dec, 2016 Acute seasonal allergic rhinitis due to pollen J30.1 [facility] [address] [place] [address]- 2201 08 Dec, 2016 [facility] [id number] [place] [address] 81828- 3873 08 Dec, 2016 Acute seasonal allergic rhinitis, unspecified trigger J30.2 ; Allergic conjunctivitis of both eyes H10.13 and Dysfunction of both eustachian tubes H69.83 [facility] [address] 47124- 0248 Dec, [facility] [address] 43665- 5982 Dec, Nevus D22.9 [facility] [address] 23102- 8943 Nov, 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 and Neuroforaminal stenosis of spine M99.89 [facility] [address] 95872- 0114 Nov, Neuroforaminal stenosis of spine M99.89 ; Essential hypertension I10 ; Mixed hyperlipidemia E78.2 ; Hypokalemia E87.6 ; Neck pain M54.2 and Nevus D22.9 [facility] [id number] [place] [address] 85235- 1435 Oct, Neuroforaminal stenosis of spine M99.89 [facility] [id number] [place] [address] 53264- 2235 Sep, Neuroforaminal stenosis of spine M99.89 [facility] [id number] [place] [address] 54636- 0785 Sep, [facility] [address] 62378- 8285 August, [facility] [id number] [place] [address] 35215- 3681 August, Neck pain M54.2 and Neuroforaminal stenosis of spine M99.89 [facility] [address] [address]- 4790 August, Routine gynecological examination Z01.419 and Screening breast examination Z12.39 [facility] [id number] [place] [address] 14414- 0426 Jul, [facility] [id number] [place] [address] 58366- 6134 Jul, [facility] [id number] [place] [address] 04415- 0561 Jul, Neuroforaminal stenosis of spine M99.89 [facility] [id number] [place] [address] 41437- 9437 Jul, [facility] [id number] [place] [address] 51583- 0035 Jul, 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 [facility] [id number] [place] [address] 91397- 5421 Jul, [facility] [id number] [place] [address] 53389- 6128 Jul, [facility] [id number] [place] [address] 22128- 5728 Jun, Neuroforaminal stenosis of spine M99.89 [facility] [address] [address]- 2299 Jun, Uterine leiomyoma, unspecified location D25.9 and Allergic reaction caused by a drug, initial encounter T78.40XA [facility] [address] [address]- 0869 Jun, [facility] [id number] [place] [address] 72579- 3109 May, UTI symptoms R39.9 and Pain of right sacroiliac joint M53.3 [facility] [id number] [place] [address] 93293- 1933 May, Neuroforaminal stenosis of spine M99.89 [facility] [id number] [place] [address] 89953- 0075 May, [facility] [id number] [place] [address] 52847- 7903 May, Acute mucoid otitis media of left ear H65.112 and Acute non- recurrent maxillary sinusitis J01.00 [facility] [id number] [place] [address] 48565- 4145 May, Acute bacterial conjunctivitis of both eyes H10.33 ; Left arm pain M79.602 and Hypokalemia E87.6 [facility] [id number] [place] [address] 35083- 4515 Apr, [facility] [id number] [place] [address] 21013- 0826 Apr, Neuroforaminal stenosis of spine M99.89 ; Neck pain M54.2 ; 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 ; Mixed hyperlipidemia E78.2 ; Essential hypertension I10 and Hypokalemia E87.6 [facility] [id number] [place] [address] 50776- 4938 Mar, Oral candidiasis B37.0 ; Neuroforaminal stenosis of spine M99.89 ; Neck pain M54.2 and 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 [facility] [id number] [place] [address] 16989- 5092 Feb, [facility] [id number] [place] [address] 05770- 6926 Feb, [facility] [id number] [place] [address] 69514- 7702 Feb, UTI (urinary tract infection) N39.0 [facility] [id number] [place] [address] 97685- 2079 Feb, Dysuria R30.0 [facility] [id number] [address]- 0508 08 Feb, 2016 Dysuria R30.0 [facility] [id number] [place] [address] 96882- 6351 Feb, Neuroforaminal stenosis of spine M99.89 ; Neck pain M54.2 ; Essential hypertension I10 ; 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 ; Dysuria R30.0 ; Abnormal MRI, shoulder R93.8 and Acute cystitis without hematuria N30.00 [facility] [id number] [place] [address] 53926- 3276 Jan, [facility] [id number] [place] [address] 74100- 8461 Jan, [facility] [id number] [place] [address] 02953- 5949 Jan, [facility] [id number] [place] [address] 47980- 6747 Jan, Abnormal MRI R93.8 [facility] [id number] [place] [address] 29063- 8114 29 Dec, 2015 [facility] [id number] [place] [address] 57239 -4371 15 Dec, 2015 Acute pain of left shoulder M25.512 [facility] [id number] [place] [address] 81917- 8938 09 Dec, 2015 [facility] [id number] [place] [address] 94487- 1994 08 Dec, 2015 [facility] [id number] [place] [address] 22143- 254 07 Dec, 2015 Acute pain of left shoulder M25.512 [facility] [id number] [place] [address] 66937- 2544 Nov, [facility] [id number] [place] [address] 11075- 9721 Nov, Neuroforaminal stenosis of spine M99.89 ; Neck pain M54.2 ; Abnormal mammogram R92.8 ; Essential hypertension I10 and 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 [facility] [id number] [address]- 0089 Nov, [facility] [address] [facility] [id number] [address]- 6851 Oct, Acute stress disorder F43.0 [facility] [address] [facility] [id number] [address]- 9746 Oct, [facility] [address] [facility] [id number], [place] [address]- 4661 Oct, [facility] [id number] [address]- 8609 Oct, [facility] [id number] [address]- 9061 Sep, [facility] [id number], [place] [address]- 8478 August, [facility] [id number] [address]- 2536 Jul, Neuroforaminal stenosis of spine M99.89 ; Neck pain M54.2 ; Abnormal mammogram R92.8 and Essential hypertension I10 [facility] [address] [address]- 1280 Jul, [facility] [id number], [place] [address]- 7545 Jul, [facility] [address] [facility] [id number], [place] [address]- 7771 Jul, Abnormal mammogram R92.8 [facility] [id number] [address]- 7999 Jul, [facility] [id number], [place] [address]- 0141 Jul, UTI (urinary tract infection) N39.0 [facility] [address], [place] [address]- 2136 Jul, Dysuria R30.0 [facility] [address] [place] [address]- 5836 Jun, [facility] [address], [place] [address]- 6359 Jun, [facility] [id number] [place] [address] 07029- 2642 Jun, Hypokalemia E87.6 and Hematuria R31.9 [facility] [id number] [place] [address] 39494- 9527 Jun, Hypokalemia E87.6 [facility] [id number] [place] [address] 21779- 6890 Jun, [facility] [id number] [place] [address] 70431- 7281 Jun, Hypokalemia E87.6 [facility] [address] [place] [address] 58435- 9455 Jun, Hypokalemia E87.6 [facility] [address], [place] [address]- 6026 15 Jun, 2015 Neuroforaminal stenosis of spine M99.89 ; Hypokalemia E87.6 ; Neck pain M54.2 ; Essential hypertension I10 ; Mixed hyperlipidemia E78.2 and Screening breast examination Z12.39 [facility] [address], [place] [address]- 1845 08 Jun, 2015 Dysuria R30.0 ; UTI (urinary tract infection) N39.0 and Hematuria R31.9 [facility] [address], [place] [address]- 2252 May, [facility] [id number] [place] [address] 03601- 6471 May, High risk sexual behavior Z72.51 ; Hypokalemia E87.6 ; Neuroforaminal stenosis of spine M99.89 ; Neck pain M54.2 ; Essential hypertension I10 ; Mixed hyperlipidemia E78.2 ; STD exposure Z20.2 and Concern about STD in female without diagnosis Z71.1 [facility] [id number] [place] [address] 36687- 9356 16 May, 2015 Neuroforaminal stenosis of spine M99.89 ; Neck pain M54.2 ; Hypokalemia E87.6 ; Essential hypertension I10 and Mixed hyperlipidemia E78.2 [facility] [address] 06240- 5981 May, [facility] [id number] [place] [address] 38540 -0848 08 May, 2015 High risk sexual behavior Z72.51 ; STD exposure Z20.2 and Concern about STD in female without diagnosis Z71.1 [facility] [id number] [place] [address] 66728- 4395 May, [facility] [address] 39838- 7703 Apr, Neuroforaminal stenosis of spine M99.89 ; Mixed hyperlipidemia E78.2 ; Essential hypertension I10 and Hypokalemia E87.6 [facility] [id number] [place] [address] 22340- 0404 Mar, [facility] [id number] [place] [address] 55435- 9750 Mar, Hypokalemia E87.6 [facility] [address] 62358- 5864 Mar, Neuroforaminal stenosis of spine M99.89 ; Mixed hyperlipidemia E78.2 ; Neck pain M54.2 ; Essential hypertension I10 ; Abnormal fasting glucose R73.09 ; Hypokalemia E87.6 and Constipation K59.00 [facility] [id number] [place] [address] 22177- 4094 Feb, Neuroforaminal stenosis of spine M99.89 ; Mixed hyperlipidemia E78.2 ; Neck pain M54.2 ; Essential hypertension I10 ; Abnormal fasting glucose R73.09 ; Hypokalemia E87.6 and Constipation K59.00 [facility] [id number] [place] [address] 36460- 8243 Feb, Elevated fasting blood sugar R73.01 [facility] [id number] [place] [address] 39466- 4900 Feb, Elevated fasting blood sugar R73.01 [facility] [address] 98649- 2343 Feb, Hair loss L65.9 [facility] [id number] [place] [address] 81760- 4467 Feb, Sinusitis J32.9 ; Essential hypertension I10 and Hair loss L65.9 [facility] [id number] [place] [address] 45054- 7884 Jan, [facility] [address] 27601- 9397 Jan, Essential hypertension I10 ; Neuroforaminal stenosis of spine M99.89 ; Neck pain M54.2 ; Mixed hyperlipidemia E78.2 and Anxiety F41.9 [facility] [id number] [place] [address] 44609- 9054 Jan, [facility] [id number] [place] [address] 25847- 0612 Jan, Mixed hyperlipidemia E78.2 ; Essential (primary) hypertension I10 ; Strain of muscle, fascia and tendon at neck level, subsequent encounter S16.1XXD and Tension-type headache, unspecified, not intractable G44.209 [facility] [id number] [place] [address] 12754- 4586 Dec, Lumbar back pain 724.2 and Neuroforaminal stenosis of spine 724.00 [facility] [id number] [place] [address] 46706- 7119 Nov, [facility] [id number] [place] [address] 82895- 2237 Nov, Lumbar back pain 724.2 and Neuroforaminal stenosis of spine 724.00 [facility] [id number] [place] [address] 37160- 6887 Nov, Edema 782.3 ; Lumbar back pain 724.2 ; Essential hypertension, benign 401.1 ; Hyperlipemia 272.4 ; Neuroforaminal stenosis of spine 724.00 and Post-concussion headache 339.20 [facility] [id number] [place] [address] 47304- 6174 Nov, [facility] [id number] [place] [address] 89989- 9697 Nov, [facility] [id number] [place] [address] 30422- 3386 Oct, Essential hypertension, benign 401.1 [facility] [id number] [place] [address] 54578- 6489 Oct, Edema 782.3 ; Lumbar back pain 724.2 ; Essential hypertension, benign 401.1 ; Hyperlipemia 272.4 ; Neuroforaminal stenosis of spine 724.00 and Post-concussion headache 339.20 [facility] [id number] [place] [address] 05273- 3390 Oct, [facility] [id number] [place] [address] 38753- 7522 Oct, Edema 782.3 [facility] [id number] [place] [address] 99925- 9678 Oct, Lumbar back pain 724.2 [facility] [id number] [place] [address] [id number]- [phone] Oct, Cervicalgia 723.1 ; Lumbar back pain 724.2 and High risk medication use V58.69 [facility] [id number] [address] Sep, [facility] [id number] [place] [address] [id number]- [phone] Sep, Lumbar strain 847.2 [facility] [id number] [place] [address] [id number]- 5753 August, Edema 782.3 and Eustachian tube dysfunction 381.81 [facility] [id number] [place] [address] [id number]- [phone] August, [facility] [id number] [place] [address] [id number]- 7422 August, Eustachian tube dysfunction 381.81 [facility] [id number] [place] [address] [phone]- [phone] Jul, Otalgia 388.70 and Otitis media 382.9 [facility] [id number] [place] [address] 28551- [phone] Jul, [facility] [id number] [place] [address] [id number]- [phone] Jul, [facility] [id number] [place] [address] Jul, [facility] [id number] [place] [address] 14 Jul, 2014 [facility] [address] [id number] [place] [address]- 9157 Jul, [facility] [id number] [place] [address] 91268- 2049 Jun, [facility] [id number] [address] 2547 Jun, [facility] [id number] [place] [address]- 1777 Jun, [facility] [place] [facility] [address] [id number] [place] [address]- 6046 May, 2014 [facility] [place] [facility] [address] [id number] [place] [address]- 0216 May, 2014 [facility] [place] [facility] [address] [facility] [id number] [place] [address]- 0266 May, 2014 [facility] [place] [facility] [address] [facility] [id number] [place] [address]- 4604 May, 2014 [facility] [place] [facility] [address] [id number] [place] [address]- 8971 May, 2014 [facility] [place] [facility] [address] [facility] [id number] [place] [address]- 2202 May, 2014 [facility] [place] [facility] [address] [id number] [address]- 8232 May, 2014 [facility] [place] [facility] [address] [facility] [id number] [place] [address]- 2883 May, [facility] [place] [facility] [address] [facility] [id number] [place] [address]- 4566 May, 2014 [facility] [place] [facility] [address] [facility] [id number] [place] [address]- 6208 May, [facility] [place] [facility] [address] [facility] [id number] [place] [address]- 6009 Apr, [facility] [place] [facility] [address] [facility] [id number] [place] [address]- 6132 Apr, [facility] [place] [facility] [address] [facility] [id number] [place] [address]- 7232 Apr, [facility] [place] [facility] [address] [facility] [id number] [place] [address]- 8366 Apr, [facility] [place] [facility] [address] [facility] [id number], [place] [address]- 0689 Apr, [facility] [place] [facility] [address] [id number] [place] [address]- 6094 Apr, [facility] [place] [facility] [address] [id number] [place] [address]- 6109 Apr, [facility] [place] [facility] [address] [id number] [place] [address]- 0567 Apr, [facility] [place] [facility] [address] [id number] [place] [address]- 0403 Apr, [facility] [place] [facility] [address] [id number] [place] [address]- 9382 Apr, [facility] [place] [facility] [address] [id number] [place] [address]- 4297 Apr, [facility] [place] [facility] [address] [id number] [place] [address]- 2333 Apr, [facility] [place] [facility] [address] [id number] [place] [address]- 7794 Apr, [facility] [place] [facility] [address] [id number] [place] [address]- 9750 Apr, [facility] [place] [facility] [address] [id number] [place] [address]- 6745 Apr, [facility] [place] [facility] [address] [id number] [place] [address]- 1904 Mar, [facility] [place] [facility] [address] [id number] [place] [address]- 6971 Mar, [facility] [place] [facility] [address] [id number] [place] [address]- 1540 Mar, [facility] [place] [facility] [address] [id number] [place] [address]- 8474 Mar, [facility] [place] [facility] [address] [id number] [place] [address]- 3258 Feb, [facility] [place] [facility] [address] [id number], [place] [address]- 1611 Feb, [facility] [place] [facility] [address] [id number] [place] [address]- 7852 Feb, [facility] [place] [facility] [address] [id number] [place] 8691 Feb, [facility] [place] [facility] [address] [facility] [id number] [place] [address]- 4223 Jan, [facility] [place] [facility] [address] [id number] [place] [address]- 9243 Jan, [facility] [place] [facility] [address] [id number] [place] [address]- 6386 Jan, [facility] [place] [facility] [address] [id number] [place] [address]- 7030 Jan, [facility] [place] [facility] [address] [id number] [place] [address]- 1360 Jan, [facility] [place] [facility] [address] [id number] [place] [address]- 7901 Jan, [facility] [place] [facility] [address] [id number] [place] [address]- 7214 Jan, [facility] [place] [facility] [address] [id number] [place] [address]- 7091 Jan, [facility] [place] [facility] [address] [id number], [place] [address]- 1444 Dec, [facility] [place] [facility] [address] [id number], [place] [address]- 9151 29 Dec, 2013 [facility] [place] [facility] [address] [id number] [place] [address]- 4769 Dec, [facility] [place] [facility] [address] [id number] [place] [address]- 7258 04 Dec, 2013 [facility] [place] [facility] [address] [facility] [id number] [place] [address]- 0989 Oct, [facility] [place] [facility] [address] [id number] [place] [address]- 0868 14 Oct, 2013 [facility] [place] [facility] [address] [id number] [place] [address]- 2836 Oct, 2013 [facility] [place] [facility] [address] [id number] [place] [address]- 7744 Oct, 2013 [facility] [place] [facility] [address] [id number] [place] [address]- 0916 Oct, 2013 [facility] [place] [facility] [address] [id number] [place] [address]- 4277 Oct, 2013 [facility] [place] [facility] [address] [id number] [place] [address]- 9687 Oct, 2013 [facility] [place] [facility] [address] [id number] [place] [address]- 5735 Oct, 2013 [facility] [place] [facility] [address] [id number] [place] [address]- 3458 Sep, [facility] [place] [facility] [address] [id number] [place] [address]- 3627 Sep, [facility] [place] [facility] [address] [id number] [place] [address]- 0037 Sep, [facility] [place] [facility] [address] [id number] [place] [address]- 6831 Sep, [facility] [place] [facility] [address] [id number] [place] [address]- 0838 Sep, [facility] [place] [facility] [address] [id number] [place] [address]- 1288 Sep, [facility] [place] [facility] [address] [id number] [place] [address]- 9043 Sep, [facility] [place] [facility] [address] [id number] [place] [address]- 5775 Sep, [facility] [place] [facility] [address] [id number] [place] [address]- 5410 Sep, [facility] [address] [id number] [place] [address]- 0138 Sep, [facility] [place] [facility] [address] [id number] [place] [address]- 9125 August, [facility] [place] [facility] [address] [id number] [place] [address]- 8316 August, [facility] [place] [facility] [address] [id number] [place] [address]- 5991 August, [facility] [place] [facility] [address] [id number] [place] [address]- 5834 August, [facility] [place] [facility] [address] [id number] [place] [address]- 3070 August, [facility] [place] [facility] [address] [id number] [place] [address]- 3060 August, [facility] [place] [facility] [address] [id number] [place] [address]- 4205 August, [facility] [place] [facility] [address] [id number] [place] [address]- 9497 August, [facility] [place] [facility] [address] [id number] [place] [address]- 0638 August, [facility] [place] [facility] [address] [id number] [place] [address]- 7457 August, [facility] [place] [facility] [address] [id number] [place] [address]- 1609 August, [facility] [place] [facility] [address] [id number] [place] [address]- 7344 August, [facility] [place] [facility] [address] [id number] [place] [address]- 2670 Jul, [facility] [place] [facility] [address] [id number] [place] [address]- 6958 Jul, [facility] [place] [facility] [address] [id number] [place] [address]- 9485 Jul, [facility] [place] [facility] [address] [id number] [place] [address]- 4677 Jul, [facility] [place] [facility] [address] [id number] [place] [address]- 4540 Jul, [facility] [place] [facility] [address] [id number] [place] [address]- 3886 Jul, [facility] [place] [facility] [address] [id number] [place] [address]- 8062 Jun, [facility] [place] [facility] [address] [id number] [place] [address]- 3572 Jun, [facility] [place] [facility] [address] [id number] [place] [address]- 3504 May, [facility] [place] [facility] [address] [id number] [place] [address]- 5843 May, [facility] [place] [facility] [address] [id number] [place] [address]- 2364 Apr, [facility] [place] [facility] [address] [id number] [place] [address]- 4720 Apr, [facility] [place] [facility] [address] [id number] [place] [address]- 7790 Apr, [facility] [place] [facility] [address] [id number] [place] [address]- 4795 Apr, [facility] [place] [facility] [address] [id number] [place] [address]- 0766 Apr, [facility] [place] [facility] [address] [id number] [place] [address]- 1052 Apr, [facility] [place] [facility] [address] [id number] [place] [address]- 1785 Apr, [facility] [place] [facility] [address] [id number] [place] [address]- 6311 Apr, [facility] [place] [facility] [address] [id number] [place] [address]- 3298 Apr, [facility] [place] [facility] [address] [id number] [place] [address]- 3214 Apr, [facility] [place] [facility] [address] [id number] [place] [address]- 1349 Apr, [facility] [place] [facility] [address] [id number] [place] [address]- 3685 Apr, [facility] [place] [facility] [address] [id number] [place] [address]- 0176 Apr, [facility] [place] [facility] [address] [id number] [place] [address]- 7994 Mar, [facility] [place] [facility] [address] [id number] [place] [address]- 1493 Mar, [facility] [place] [facility] [address] [id number] [place] [address]- 7290 Mar, [facility] [place] [facility] [address] [id number] [place] [address]- 8767 Mar, [facility] [place] [facility] [address] [id number] [place] [address]- 0740 Feb, [facility] [place] [facility] [address] [id number] [place] [address]- 9892 Feb, [facility] [place] [facility] [address] [id number] [place] [address]- 7646 Feb, [facility] [place] [facility] [address] [id number] [place] [address]- 4176 Feb, [facility] [place] [facility] [address] [id number] [place] [address]- 3682 14 Jan, 2013 [facility] [place] [facility] [address] [id number] [place] [address]- 6466 14 Jan, 2013 [facility] [place] [facility] [address] [id number] [place] [address]- 6813 Jan, [facility] [place] [facility] [address] [id number] [place] [address]- 0569 Jan, [facility] [place] [facility] [address] [id number] [place] [address]- 2339 Jan, [facility] [place] [facility] [address] [id number] [place] [address]- 5780 Jan, [facility] [place] [facility] [address] [id number] [place] [address]- 7439 Jan, [facility] [place] [facility] [address] [id number] [place] [address]- 4790 Jan, [facility] [place] [facility] [address] [id number] [place] [address]- 9894 Jan, [facility] [place] [facility] [address] [id number] [place] [address]- 2931 26 Dec, 2012 [facility] [place] [facility] [address] [id number], [place] [address]- 9825 16 Dec, 2012 [facility] [place] [facility] [address] [id number] [place] [address]- 4232 16 Dec, 2012 [facility] [place] [facility] [address] [id number] [place] [address]- 0018 13 Dec, 2012 [facility] [place] [facility] [address] [id number], [place] [address]- 5117 17 Nov, 2012 [facility] [place] [facility] [address] [id number], [place] [address]- 8842 Nov, [facility] [place] [facility] [address] [id number] [place] [address]- 3820 14 Nov, 2012 [facility] [place] [facility] [address] [id number], [place] [address]- 0821 05 Nov, 2012 [facility] [place] [facility] [address] [id number], [place] [address]- 6462 18 Oct, 2012 [facility] [place] [facility] [address] [id number] [place] [address]- 1012 Sep, [facility] [address] [id number] [place] [address]- 4063 August, [facility] [address] [id number] [place] [address]- 1591 August, [facility] [address] [id number] [place] [address]- 4616 August, [facility] [address] [id number] [place] [address]- 9198 August, [facility] [address] [id number] [place] [address]- 3756 August, [facility] [address] [id number] [place] [address]- 0802 August, [facility] [address] [id number] [place] [address]- 8511 August, [facility] [address] [id number] [place] [address]- 9434 August, [facility] [address] [id number] [place] [address]- 2821 August, [facility] [address] [id number] [place] [address]- 5831 August, [facility] [address] [id number] [place] [address]- 2110 August, [facility] [address] [id number] [place] [address]- 5751 August, [facility] [address] [id number] [place] [address]- 8538 Jul, [facility] [address] [id number] [place] [address]- 9707 Jul, [facility] [address] [id number] [place] [address]- 5714 Jul, [facility] [address] [id number] [place] [address]- 6505 15 Jul, 2012 [facility] [address] [id number] [place] [address]- 1221 Jul, [facility] [address] [id number] [place] [address]- 9496 Jul, [facility] [address] [id number] [place] [address]- 1844 Jul, [facility] [address] [id number] [place] [address]- 3713 Jul, [facility] [address] [id number] [place] [address]- 0653 Jul, [facility] [address] [id number] [place] [address]- 1405 Jul, [facility] [address] [id number] [place] [address]- 8649 Jul, [facility] [address] [id number] [place] [address]- 5949 Jun, [facility] [address] [id number] [place] [address]- 7505 Jun, [facility] [address] [id number] [place] [address]- 3316 Jun, [facility] [address] [id number], [place] [address]- 9973 Jun, [facility] [place] [facility] [address] [id number] [place] [address]- 7597 May, [facility] [place] [facility] [address] [id number] [place] [address]- 5720 14 May, 2012 [facility] [place] [facility] [address] [id number] [place] [address]- 9887 05 May, 2012 [facility] [place] [facility] [address] [id number], [place] [address]- 3192 04 May, 2012 [facility] [address] [id number] [place] [address]- 4049 May, [facility] [address] [id number] [place] [address]- 6736 May, [facility] [address] [id number] [place] [address]- 8776 Apr, [facility] [place] [facility] [address] [id number] [place] [address]- 8249 Apr, [facility] [address] [id number] [place] [address]- 0556 Apr, [facility] [address] [id number] [place] [address]- 5473 Apr, [facility] [address] [id number] [place] [address]- 6870 15 Mar, 2012 [facility] [address] [id number] [place] [address]- 5666 14 Mar, 2012 [facility] [address] [id number] [place] [address]- 7324 14 Mar, 2012 [facility] [address] [id number] [place] [address]- 9140 14 Mar, 2012 [facility] [address] [id number] [place] [address]- 0743 14 Mar, 2012 [facility] [place] [facility] [address] [id number] [place] [address]- 7019 06 Mar, 2012 [facility] [place] [facility] [address] [id number] [place] [address]- 7199 06 Mar, 2012 [facility] [place] [facility] [address] [id number] [place] 1185 Feb, [facility] [address] [id number] [place] [address]- 9640 Feb, [facility] [place] [facility] [address] [id number] [place] [address]- 3863 Feb, [facility] [place] [facility] [address] [id number] [place] [address]- 0785 Feb, [facility] [place] [facility] [address] [id number] [place] [address]- 6532 Jan, [facility] [place] [facility] [address] [id number] [place] [address]- 8072 Jan, [facility] [place] [facility] [address] [id number] [place] [address]- 1903 Jan, [facility] [place] [facility] [address] [id number] [place] [address]- 2747 Jan, [facility] [place] [facility] [address] [id number] [place] [address]- 6077 Jan, [facility] [place] [facility] [address] [id number] [place] [address]- 1544 Jan, [facility] [place] [facility] [address] [id number] [place] [address]- 4179 Dec, [facility] [place] [facility] [address] [id number] [place] [address]- 0076 Dec, [facility] [place] [facility] [address] [id number] [place] [address]- 2876 Nov, [facility] [place] [facility] [address] [id number] [place] [address]- 3891 Sep, [facility] [place] [facility] [address] [id number] [place] [address]- 8800 August, [facility] [place] [facility] [address] [id number] [place] [address]- 0927 August, [facility] [place] [facility] [address] [id number] [place] [address]- 4659 August, [facility] [place] [facility] [address] [id number] [place] [address]- 3456 August, [facility] [place] [facility] [address] [id number] [place] 8049 August, [facility] [place] [facility] [address] [id number] [place] [address]- 0528 Jun, [facility] [place] [facility] [address] [id number] [place] [address]- 2307 Jun, [facility] [place] [facility] [address] [id number] [place] [address]- 9722 Apr, [facility] [place] [facility] [address] [id number] [place] [address] Apr, [facility] [place] [facility] [address] [id number] [place] [address] Mar, [facility] [place] [facility] [address] [id number] [place] [address] Feb, [facility] [place] [facility] [address] [id number] [place] [address] 14 Feb, 2011 [facility] [place] [facility] [address] [id number] [place] [address] Feb, [facility] [place] [facility] [address] [id number] [place] [address] 17 Jan, 2011 [facility] [place] [facility] [address] [id number], [place] [address] 15 Jan, 2011 [facility] [place] [facility] [address] [id number], [place] [address] 15 Jan, 2011 [facility] [place] [facility] [address] [id number] [place] [address] 14 Jan, 2011 [facility] [place] [facility] [address] [id number], [place] [address] 15 May, 2010 [facility] [place] [facility] [address] [id number] [place] [address] Mar, [facility] [place] [facility] [address] [facility] [id number], [place] [address] Oct, [facility] [address] [id number], [place] [address] Sep, [facility] [address] [id number], [place] [address] Mar, [facility] [address] [id number], [place] [address] Jan, [facility] [address] [id number], [place] [address] Jan, [facility] [id number] [place] [address] May, IMMUNIZATIONS No Known Immunizations SOCIAL HISTORY Never Assessed REASON FOR VISIT controlled medication refill PLAN OF CARE VITAL SIGNS MEDICATIONS Medication Instructions Dosage Frequency Start Date End Date Duration Status Amlodipine Besylate 5 mg Orally Once a day 1 tablet 24h Active Hydrocodone-Acetaminophen 5-325 MG Orally 3 -4 times a day prn. must last 4 weeks 1 tablet as needed Jul, 28 days Active Triamterene-HCTZ 37.5-25 MG Orally Once a day 1 tablet in the morning 24h 30 Active RESULTS No Results PROCEDURES No Known procedures INSTRUCTIONS MEDICATIONS ADMINISTERED No Known Medications MEDICAL (GENERAL) HISTORY Type Description Date Medical History hypertension Medical History Colposcopy with loop electrode excision of the cervix was performed 06/2012, mild squamous atypia (no definite dyplasia). Performed at [facility] Dr. Joy. Medical History Acute suppurative [...]
--- OUTSIDE RECORDS SUMMARY | 2018-06-10 04:55 | XMS REPORT ---
Author Author SPIKE JULIEN [facility] Address [address] [place] [address] Care Team Providers Care Machine Sign Writer Name Role Phone SPIKE JULIEN Unavailable PROBLEMS Type Condition ICD9-CM Code OVF27-CR Code Onset Dates Condition Status SNOMED Code Problem Hematuria, unspecified type R31.9 Active 13899769 Problem Anxiety F41.9 Active 06077454 Problem Abnormal renal ultrasound R93.429 Active [id number] Problem Abnormal glucose R73.09 Active 855689101 Problem 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 Active 679317824 Problem Hypokalemia E87.6 Active 08829177 Problem Neck pain M54.2 Active 65957547 Problem Neuroforaminal stenosis of spine M99.89 Active 749185160965 Problem Mixed hyperlipidemia E78.2 Active 46029498 Problem Essential hypertension I10 Active 10195636 ALLERGIES No Information ENCOUNTERS Encounter Location Date Diagnosis [facility] [address] 30783- 0449 Nov, [facility] [id number] [place] [address] 12873- 6133 Nov, [facility] [address] 05789- 5921 Nov, Hypokalemia E87.6 [facility] [id number] [place] [address] 39347- 2815 Nov, [facility] [address] 20563- 9592 Nov, Abnormal renal ultrasound R93.429 [facility] [address] 79110- 9318 Nov, Abnormal renal ultrasound R93.429 [facility] [id number] [place] [address] 28973- 7361 09 Nov, 2017 Hematuria, unspecified type R31.9 and Neuroforaminal stenosis of spine M99.89 [facility] [id number] [place] [address] 06141- 0967 Nov, Dysuria R30.0 [facility] [id number] [place] [address] 62989- 5204 Oct, Lateral epicondylitis, right elbow M77.11 [facility] [id number] [place] [address] 10010- 5388 Oct, Visit for TB skin test Z11.1 ; Neuroforaminal stenosis of spine M99.89 and Essential hypertension I10 [facility] [id number] [place] [address] 94937- 9091 16 Oct, 2017 [facility] [address] 19691- 7531 Oct, Neuroforaminal stenosis of spine M99.89 [facility] [id number] [place] [address] 03726- 2069 Oct, Visit for TB skin test Z11.1 [facility] [id number] [place] [address] 32482- 3456 05 Oct, 2017 Cystitis without hematuria N30.90 [facility] [id number] [place] [address] 13898- 2850 Sep, Screening breast examination Z12.39 [facility] [id number] [place] [address] 88725- 4443 Sep, Dysuria R30.0 and Cystitis without hematuria N30.90 [facility] [id number] [place] [address] 39784- 2549 Sep, Essential hypertension I10 and Neuroforaminal stenosis of spine M99.89 [facility] [id number] [place] [address] 01954- 9666 Sep, Abnormal glucose R73.09 [facility] [id number] [place] [address] 05799- 0150 August, Lateral epicondylitis, right elbow M77.11 [facility] [id number] [place] [address] 57311- 0518 August, Screen for STD (sexually transmitted disease) Z11.3 [facility] [address] 05842- 4424 August, Neuroforaminal stenosis of spine M99.89 ; Mixed hyperlipidemia E78.2 ; Elevated fasting glucose R73.01 ; Screening mammogram, encounter for Z12.31 and Encounter for well woman exam without gynecological exam Z00.00 [facility] [id number] [place] [address] 55734- 7928 August, Neuroforaminal stenosis of spine M99.89 [facility] [address] 65214- 0931 August, Essential hypertension I10 ; Hypokalemia E87.6 and Mixed hyperlipidemia E78.2 [facility] [address] 88143- 8197 Jul, [facility] [id number] [place] [address] 16628- 0230 Jul, Neuroforaminal stenosis of spine M99.89 [facility] [id number] [place] [address] 54181- 3732 Jul, Lateral epicondylitis, right elbow M77.11 [facility] [id number] [place] [address] 92893- 2364 Jul, [facility] [id number] [place] [address] 88988- 4211 Jun, High ankle sprain of right lower extremity, initial encounter S93.431A [facility] [address] 53827- 2921 Jun, Essential hypertension I10 [facility] [id number] [place] [address] 11287- 8306 Jun, [facility] [id number] [place] [address] 46729- 7875 Jun, [facility] [id number] [place] [address] 67951- 7841 Jun, Neuroforaminal stenosis of spine M99.89 [facility] [id number] [place] [address] 23637- 8655 Jun, Pain of right upper extremity M79.601 and Essential hypertension I10 [facility] [id number] [place] [address] 26406- 2186 Jun, [facility] [id number] [place] [address] 64980- 6948 Jun, Dysuria R30.0 ; Acute cystitis with hematuria N30.01 and Screen for STD (sexually transmitted disease) Z11.3 [facility] [id number] [place] [address] 00951- 4698 May, 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 [facility] [id number] [place] [address] 71944- 4023 May, Essential hypertension I10 [facility] [id number] [place] [address] 99171- 4198 May, Neuroforaminal stenosis of spine M99.89 [facility] [id number] [place] [address] 53823- 1289 Apr, Allergic reaction, initial encounter T78.40XA [facility] [id number] [place] [address] 85047- 7310 Apr, Low back pain, unspecified back pain laterality, unspecified chronicity, with sciatica presence unspecified M54.5 ; Acute cystitis with hematuria N30.01 ; Neuroforaminal stenosis of spine M99.89 ; Bilateral acute serous otitis media, recurrence not specified H65.03 ; Mixed hyperlipidemia E78.2 ; Essential hypertension I10 ; Immunization counseling Z71.89 and Encounter for immunization Z23 [facility] [id number] [place] [address] 52493- 8919 08 Apr, 2017 Neck pain M54.2 [facility] [id number] [place] [address] 94972- 4963 Mar, Neuroforaminal stenosis of spine M99.89 [facility] [id number] [place] [address] 21043- 0405 Mar, Pharyngitis due to other organism J02.8 [facility] [address] 09527- 2911 Feb, Neuroforaminal stenosis of spine M99.89 [facility] [id number] [place] [address] 28264- 4963 08 Feb, 2017 UTI (urinary tract infection) N39.0 [facility] [id number] [place] [address] 64160- 7323 07 Feb, 2017 Recent urinary tract infection Z87.440 ; Neuroforaminal stenosis of spine M99.89 ; Neck pain M54.2 ; 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 and Recurrent UTI N39.0 [facility] [id number] [place] [address] 62984- 0446 Feb, [facility] [id number] [place] [address] 73718- 1294 Jan, Neuroforaminal stenosis of spine M99.89 [facility] [id number] [place] [address] 67599- 3936 28 Dec, 2016 Neuroforaminal stenosis of spine M99.89 [facility] [id number] [place] [address] 66148- 2397 18 Dec, 2016 Acute seasonal allergic rhinitis due to pollen J30.1 [facility] [address] [place] [address]- 9328 08 Dec, 2016 [facility] [id number] [place] [address] 97662- 1197 08 Dec, 2016 Acute seasonal allergic rhinitis, unspecified trigger J30.2 ; Allergic conjunctivitis of both eyes H10.13 and Dysfunction of both eustachian tubes H69.83 [facility] [id number] [place] [address] 00008- 5759 Dec, [facility] [id number] [place] [address] 43795- 7744 Dec, Nevus D22.9 [facility] [address] 72549- 6776 Nov, 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 and Neuroforaminal stenosis of spine M99.89 [facility] [id number] [place] [address] 31616- 9952 Nov, Neuroforaminal stenosis of spine M99.89 ; Essential hypertension I10 ; Mixed hyperlipidemia E78.2 ; Hypokalemia E87.6 ; Neck pain M54.2 and Nevus D22.9 [facility] [id number] [place] [address] 37158- 9297 Oct, Neuroforaminal stenosis of spine M99.89 [facility] [id number] [place] [address] 33845- 5977 Sep, Neuroforaminal stenosis of spine M99.89 [facility] [id number] [place] [address] 46787- 5075 Sep, [facility] [id number] [place] [address] 84179- 8769 August, [facility] [id number] [place] [address] 88456- 0572 August, Neck pain M54.2 and Neuroforaminal stenosis of spine M99.89 [facility] [address] [place] [address]- 4295 August, Routine gynecological examination Z01.419 and Screening breast examination Z12.39 [facility] [id number] [place] [address] 69100- 2055 Jul, [facility] [id number] [place] [address] 01189- 6413 Jul, [facility] [id number] [place] [address] 88272- 9160 Jul, Neuroforaminal stenosis of spine M99.89 [facility] [id number] [place] [address] 55547- 6674 Jul, [facility] [id number] [place] [address] 76615- 7420 Jul, 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 [facility] [id number] [place] [address] 72069- 0710 Jul, [facility] [id number] [place] [address] 65820- 2355 Jul, [facility] [id number] [place] [address] 38990- 1589 Jun, Neuroforaminal stenosis of spine M99.89 [facility] [address] [place] [address] 42504- 3794 Jun, Uterine leiomyoma, unspecified location D25.9 and Allergic reaction caused by a drug, initial encounter T78.40XA [facility] [address] [address]- 5865 Jun, [facility] [id number] [place] [address] 53850- 4049 May, UTI symptoms R39.9 and Pain of right sacroiliac joint M53.3 [facility] [id number] [place] [address] 70209- 7124 May, Neuroforaminal stenosis of spine M99.89 [facility] [id number] [place] [address] 41052- 5097 May, [facility] [id number] [place] [address] 30631- 3043 May, Acute mucoid otitis media of left ear H65.112 and Acute non- recurrent maxillary sinusitis J01.00 [facility] [id number] [place] [address] 19122- 7619 May, Acute bacterial conjunctivitis of both eyes H10.33 ; Left arm pain M79.602 and Hypokalemia E87.6 [facility] [id number] [place] [address] 46463- 5724 Apr, [facility] [id number] [place] [address] 42261- 7119 Apr, Neuroforaminal stenosis of spine M99.89 ; Neck pain M54.2 ; 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 ; Mixed hyperlipidemia E78.2 ; Essential hypertension I10 and Hypokalemia E87.6 [facility] [id number] [place] [address] 40026- 3945 Mar, Oral candidiasis B37.0 ; Neuroforaminal stenosis of spine M99.89 ; Neck pain M54.2 and 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 [facility] [id number] [place] [address] 47445- 0020 Feb, [facility] [id number] [place] [address] 91718- 8523 Feb, [facility] [id number] [place] [address] 86745- 4590 Feb, UTI (urinary tract infection) N39.0 [facility] [id number] [place] [address] 10827- 4256 Feb, Dysuria R30.0 [facility] [address] [place] [address]- 4254 08 Feb, 2016 Dysuria R30.0 [facility] [id number] [place] [address] 55426- 7448 Feb, Neuroforaminal stenosis of spine M99.89 ; Neck pain M54.2 ; Essential hypertension I10 ; 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 ; Dysuria R30.0 ; Abnormal MRI, shoulder R93.8 and Acute cystitis without hematuria N30.00 [facility] [id number] [place] [address] 67940- 8539 Jan, [facility] [id number] [place] [address] 73017- 8584 Jan, [facility] [id number] [place] [address] 40103- 9498 Jan, [facility] [id number] [place] [address] 06799- 4178 Jan, Abnormal MRI R93.8 [facility] [id number] [place] [address] 13391- 5421 29 Dec, 2015 [facility] [id number] [place] [address] 82226 -5689 15 Dec, 2015 Acute pain of left shoulder M25.512 [facility] [id number] [place] [address] 06178- 2542 09 Dec, 2015 [facility] [id number] [place] [address] 17742- 4629 08 Dec, 2015 [facility] [id number] [place] [address] 66828- 4206 07 Dec, 2015 Acute pain of left shoulder M25.512 [facility] [id number] [place] [address] 81154- 2543 Nov, [facility] [id number] [place] [address] 26506- 9038 Nov, Neuroforaminal stenosis of spine M99.89 ; Neck pain M54.2 ; Abnormal mammogram R92.8 ; Essential hypertension I10 and Chronic pain due to trauma G89.21 [facility] [address] [address]- 0213 Nov, [facility] [address] [facility] [id number] [address]- 0554 Oct, Acute stress disorder F43.0 [facility] [address] [facility] [id number] [address]- 5484 Oct, [facility] [address] [facility] [id number], [place] [address]- 3911 Oct, [facility] [id number] [address]- 8725 Oct, [facility] [id number] [address]- 4220 Sep, [facility] [id number] [address]- 7423 August, [facility] [id number] [address]- 7054 Jul, Neuroforaminal stenosis of spine M99.89 ; Neck pain M54.2 ; Abnormal mammogram R92.8 and Essential hypertension I10 [facility] [address] [address]- 0427 Jul, [facility] [address] [facility] [id number] [address]- 6419 Jul, [facility] [address] [facility] [id number], [place] [address]- 8281 Jul, Abnormal mammogram R92.8 [facility] [id number] [address]- 7213 Jul, [facility] [id number] [address]- 9916 Jul, UTI (urinary tract infection) N39.0 [facility] [address] [address]- 8258 Jul, Dysuria R30.0 [facility] [address] [address]- 2406 Jun, [facility] [address] [address]- 2033 Jun, [facility] [address] [place] [address] 07613- 6424 Jun, Hypokalemia E87.6 and Hematuria R31.9 [facility] [id number] [place] [address] 52739- 7316 Jun, Hypokalemia E87.6 [facility] [address] [place] [address] 57890- 9835 Jun, [facility] [address] [place] [address] 32543- 5791 Jun, Hypokalemia E87.6 [facility] [address] [place] [address] 77625- 5101 Jun, Hypokalemia E87.6 [facility] [address] [address]- 4622 Jun, Neuroforaminal stenosis of spine M99.89 ; Hypokalemia E87.6 ; Neck pain M54.2 ; Essential hypertension I10 ; Mixed hyperlipidemia E78.2 and Screening breast examination Z12.39 [facility] [address] [address]- 3383 Jun, Dysuria R30.0 ; UTI (urinary tract infection) N39.0 and Hematuria R31.9 [facility] [address], [place] [address]- 7343 May, [facility] [id number] [place] [address] 09817- 1889 18 May, 2015 High risk sexual behavior Z72.51 ; Hypokalemia E87.6 ; Neuroforaminal stenosis of spine M99.89 ; Neck pain M54.2 ; Essential hypertension I10 ; Mixed hyperlipidemia E78.2 ; STD exposure Z20.2 and Concern about STD in female without diagnosis Z71.1 [facility] [id number] [place] [address] 36726- 4482 16 May, 2015 Neuroforaminal stenosis of spine M99.89 ; Neck pain M54.2 ; Hypokalemia E87.6 ; Essential hypertension I10 and Mixed hyperlipidemia E78.2 [facility] [address] 47547- 8460 May, [facility] [id number] [place] [address] 96583 -4797 08 May, 2015 High risk sexual behavior Z72.51 ; STD exposure Z20.2 and Concern about STD in female without diagnosis Z71.1 [facility] [id number] [place] [address] 20629- 3099 May, [address] 19301- 8530 Apr, Neuroforaminal stenosis of spine M99.89 ; Mixed hyperlipidemia E78.2 ; Essential hypertension I10 and Hypokalemia E87.6 [address] [id number] [place] [address] 22049- 6091 Mar, [facility] [id number] [place] [address] 35798- 9242 Mar, Hypokalemia E87.[address] 25118- 2764 Mar, Neuroforaminal stenosis of spine M99.89 ; Mixed hyperlipidemia E78.2 ; Neck pain M54.2 ; Essential hypertension I10 ; Abnormal fasting glucose R73.09 ; Hypokalemia E87.6 and Constipation K59.00 [facility] [id number] [place] [address] 85015- 0342 Feb, Neuroforaminal stenosis of spine M99.89 ; Mixed hyperlipidemia E78.2 ; Neck pain M54.2 ; Essential hypertension I10 ; Abnormal fasting glucose R73.09 ; Hypokalemia E87.6 and Constipation K59.00 [facility] [id number] [place] [address] 44654- 8880 Feb, Elevated fasting blood sugar R73.01 [facility] [id number] [place] [address] 58424- 2400 Feb, Elevated fasting blood sugar R73.01 [facility] [address] 96898- 1677 Feb, Hair loss L65.9 [facility] [id number] [place] [address] 05688- 6853 Feb, Sinusitis J32.9 ; Essential hypertension I10 and Hair loss L65.9 [facility] [id number] [place] [address] 69785- 6731 Jan, [place] [facility] [address] 27503- 6263 Jan, Essential hypertension I10 ; Neuroforaminal stenosis of spine M99.89 ; Neck pain M54.2 ; Mixed hyperlipidemia E78.2 and Anxiety F41.9 [facility] [id number] [place] [address] 31410- 6319 Jan, [facility] [facility] [id number] [place] [address] 31737- 3356 Jan, Mixed hyperlipidemia E78.2 ; Essential (primary) hypertension I10 ; Strain of muscle, fascia and tendon at neck level, subsequent encounter S16.1XXD and Tension-type headache, unspecified, not intractable G44.209 [facility] [id number] [place] [address] 80530- 5295 Dec, Lumbar back pain 724.2 and Neuroforaminal stenosis of spine 724.00 [facility] [id number] [place] [address] 39309- 0735 Nov, [facility] [id number] [place] [address] 12396- 1361 Nov, Lumbar back pain 724.2 and Neuroforaminal stenosis of spine 724.00 [facility] [id number] [place] [address] 41681- 8914 Nov, Edema 782.3 ; Lumbar back pain 724.2 ; Essential hypertension, benign 401.1 ; Hyperlipemia 272.4 ; Neuroforaminal stenosis of spine 724.00 and Post-concussion headache 339.20 [facility] [id number] [place] [address] 47562- 3330 Nov, [facility] [id number] [place] [address] 61848- 7479 Nov, [facility] [id number] [place] [address] 52504- 4864 Oct, Essential hypertension, benign 401.1 [facility] [id number] [place] [address] 94755- 6028 Oct, Edema 782.3 ; Lumbar back pain 724.2 ; Essential hypertension, benign 401.1 ; Hyperlipemia 272.4 ; Neuroforaminal stenosis of spine 724.00 and Post-concussion headache 339.20 [facility] [id number] [place] [address] [id number]- [id number] Oct, [facility] [id number] [place] [address] 14125- 9122 Oct, Edema 782.3 [facility] [id number] [place] [address] [id number]- 7415 Oct, Lumbar back pain 724.2 [facility] [id number] [place] [address] [id number]- 4824 Oct, Cervicalgia 723.1 ; Lumbar back pain 724.2 and High risk medication use V58.69 [facility] [address] [address] Sep, [facility] [id number] [place] [address] 76715- 2831 Sep, Lumbar strain 847.2 [facility] [id number] [place] [address] 19979- 8900 August, Edema 782.3 and Eustachian tube dysfunction 381.81 [facility] [id number] [place] [address] 26002- 3612 August, [facility] [id number] [place] [address] 35563- 6786 August, Eustachian tube dysfunction 381.81 [facility] [id number] [place] [address] 57982- 2082 Jul, Otalgia 388.70 and Otitis media 382.9 [facility] [id number] [place] [address] [id number]- 2854 Jul, [facility] [id number] [place] [address] [id number]- 1885 Jul, [facility] [id number] [place] [address] [id number]- 5100 Jul, [facility] [address] [id number] [place] [address]- 2825 Jul, [facility] [id number] [place] [address] 83808- 3857 Jul, [facility] [id number] [place] [address] 10313- 6663 Jun, [facility] [id number] [address] 1307 Jun, [facility] [id number] [place] [address] 26624- 8452 Jun, [facility] [place] [facility] [address] [id number] [place] [address]- 3021 May, 2014 [facility] [place] [facility] [address] [id number] [place] [address]- 2726 May, 2014 [facility] [place] [facility] [address] [facility] [id number] [place] [address]- 4536 May, 2014 [facility] [place] [facility] [address] [id number] [place] [address]- 5911 May, 2014 [facility] [place] [facility] [address] [id number] [place] [address]- 5368 May, 2014 [facility] [place] [facility] [address] [facility] [id number] [place] 1946 May, 2014 [facility] [place] [facility] [address] [facility] [id number] [place] [address]- 6877 May, 2014 [facility] [place] [facility] [address] [facility] [id number] [place] [address]- 4360 May, [facility] [place] [facility] [address] [facility] [id number] [place] [address]- 3026 May, 2014 [facility] [place] [facility] [address] [facility] [id number] [place] [address]- 3753 May, [facility] [place] [facility] [address] [facility] [id number] [place] [address]- 1022 Apr, [facility] [place] [facility] [address] [facility] [id number] [place] [address]- 3750 Apr, [facility] [place] [facility] [address] [id number] [place] [address]- 0795 Apr, [facility] [place] [facility] [address] [facility] [id number] [place] [address]- 8172 Apr, [facility] [place] [facility] [address] [facility] [id number] [place] [address]- 6055 Apr, [facility] [place] [facility] [address] [id number] [place] [address]- 1835 Apr, [facility] [place] [facility] [address] [id number] [place] [address]- 1303 Apr, [facility] [place] [facility] [address] [id number] [place] [address]- 5507 Apr, [facility] [place] [facility] [address] [id number] [place] [address]- 4488 Apr, [facility] [place] [facility] [address] [id number] [place] [address]- 7860 Apr, [facility] [place] [facility] [address] [id number] [place] [address]- 6449 Apr, [facility] [place] [facility] [address] [id number] [place] [address]- 9361 Apr, [facility] [place] [facility] [address] [id number] [place] [address]- 1714 Apr, [facility] [place] [facility] [address] [id number] [place] [address]- 9413 Apr, [facility] [place] [facility] [address] [id number] [place] [address]- 8330 Apr, [facility] [place] [facility] [address] [id number] [place] [address]- 5325 Mar, [facility] [place] [facility] [address] [id number] [place] [address]- 0394 Mar, [facility] [place] [facility] [address] [id number] [place] [address]- 2126 Mar, [facility] [place] [facility] [address] [id number] [place] [address]- 8693 Mar, [facility] [place] [facility] [address] [id number] [place] [address]- 6182 Feb, [facility] [place] [facility] [address] [id number] [place] [address]- 0494 Feb, [facility] [place] [facility] [address] [id number] [place] [address]- 6937 Feb, [facility] [place] [facility] [address] [id number] [place] 2061 Feb, [facility] [place] [facility] [address] [id number] [place] [address]- 6567 Jan, [facility] [place] [facility] [address] [id number] [place] [address]- 6979 Jan, [facility] [place] [facility] [address] [id number] [place] [address]- 1197 Jan, [facility] [place] [facility] [address] [id number] [place] [address]- 9594 Jan, [facility] [place] [facility] [address] [id number] [place] [address]- 8750 Jan, [facility] [place] [facility] [address] [id number] [place] [address]- 4110 Jan, [facility] [place] [facility] [address] [id number] [place] [address]- 9773 Jan, [facility] [place] [facility] [address] [id number] [place] [address]- 7522 Jan, [facility] [place] [facility] [address] [id number], [place] [address]- 6591 Dec, [facility] [place] [facility] [address] [id number] [place] [address]- 6651 29 Dec, 2013 [facility] [place] [facility] [address] [id number] [place] [address]- 1493 04 Dec, 2013 [facility] [place] [facility] [address] [id number] [place] [address]- 5638 04 Dec, 2013 [facility] [place] [facility] [address] [id number] [place] [address]- 2822 Oct, [facility] [place] [facility] [address] [id number] [place] [address]- 1036 14 Oct, 2013 [facility] [place] [facility] [address] [id number] [place] [address]- 5273 Oct, 2013 [facility] [place] [facility] [address] [id number] [place] [address]- 1582 Oct, 2013 [facility] [place] [facility] [address] [id number] [place] [address]- 7753 Oct, 2013 [facility] [place] [facility] [address] [id number] [place] [address]- 7167 Oct, 2013 [facility] [place] [facility] [address] [id number] [place] [address]- 7938 Oct, 2013 [facility] [place] [facility] [address] [id number] [place] [address]- 3950 Oct, 2013 [facility] [place] [facility] [address] [id number] [place] [address]- 7412 Sep, [facility] [place] [facility] [address] [id number] [place] [address]- 7334 Sep, [facility] [place] [facility] [address] [id number] [place] [address]- 9789 Sep, [facility] [place] [facility] [address] [id number] [place] [address]- 6294 Sep, [facility] [place] [facility] [address] [id number] [place] [address]- 1732 Sep, [facility] [place] [facility] [address] [id number] [place] [address]- 9719 Sep, [facility] [place] [facility] [address] [id number] [place] [address]- 0734 Sep, [facility] [place] [facility] [address] [id number] [place] [address]- 7725 Sep, [facility] [place] [facility] [address] [id number] [place] [address]- 6780 Sep, [facility] [place] [facility] [address] [id number] [place] [address]- 0768 Sep, [facility] [place] [facility] [address] [id number] [place] [address]- 2313 August, [facility] [place] [facility] [address] [id number] [place] [address]- 5450 August, [facility] [place] [facility] [address] [id number] [place] [address]- 8954 August, [facility] [place] [facility] [address] [id number] [place] [address]- 6553 August, [facility] [place] [facility] [address] [id number] [place] [address]- 1923 August, [facility] [place] [facility] [address] [id number] [place] [address]- 3204 August, [facility] [place] [facility] [address] [id number] [place] [address]- 4112 August, [facility] [place] [facility] [address] [id number] [place] [address]- 5546 August, [facility] [place] [facility] [address] [id number] [place] [address]- 0271 August, [facility] [place] [facility] [address] [id number] [place] [address]- 2779 August, [facility] [place] [facility] [address] [id number] [place] [address]- 6463 August, [facility] [place] [facility] [address] [id number] [place] [address]- 1717 August, [facility] [place] [facility] [address] [id number] [place] [address]- 4123 Jul, [facility] [place] [facility] [address] [id number] [place] [address]- 9484 Jul, [facility] [place] [facility] [address] [id number], [place] [address]- 4298 Jul, [facility] [place] [facility] [address] [id number] [place] [address]- 0441 Jul, [facility] [place] [facility] [address] [id number] [place] [address]- 7877 Jul, [facility] [place] [facility] [address] [id number] [place] [address]- 5013 Jul, [facility] [place] [facility] [address] [id number] [place] [address]- 4120 Jun, [facility] [place] [facility] [address] [id number] [place] [address]- 5054 Jun, [facility] [place] [facility] [address] [id number] [place] [address]- 8611 May, [facility] [place] [facility] [address] [id number] [place] [address]- 3810 May, [facility] [place] [facility] [address] [id number] [place] [address]- 8092 Apr, [facility] [place] [facility] [address] [id number] [place] [address]- 2073 Apr, [facility] [place] [facility] [address] [facility] [id number] [place] [address]- 3456 Apr, [facility] [place] [facility] [address] [id number] [place] [address]- 8411 Apr, [facility] [place] [facility] [address] [id number] [place] [address]- 1243 Apr, [facility] [place] [facility] [address] [id number] [place] [address]- 2600 Apr, [facility] [place] [facility] [address] [id number] [place] [address]- 7528 Apr, [facility] [place] [facility] [address] [id number] [place] [address]- 3392 Apr, [facility] [place] [facility] [address] [id number] [place] [address]- 9583 Apr, [facility] [place] [facility] [address] [id number] [place] [address]- 1614 Apr, [facility] [place] [facility] [address] [id number] [place] [address]- 7677 Apr, [facility] [place] [facility] [address] [id number] [place] [address]- 4693 Apr, [facility] [place] [facility] [address] [id number] [place] [address]- 2510 Apr, [facility] [place] [facility] [address] [id number] [place] [address]- 5015 Mar, [facility] [place] [facility] [address] [id number] [place] [address]- 3565 Mar, [facility] [place] [facility] [address] [id number] [place] [address]- 6572 Mar, [facility] [place] [facility] [address] [id number] [place] [address]- 1850 Mar, [facility] [place] [facility] [address] [id number] [place] [address]- 0770 Feb, [facility] [place] [facility] [address] [id number] [place] [address]- 4594 Feb, [facility] [place] [facility] [address] [id number] [place] [address]- 2120 Feb, [facility] [place] [facility] [address] [id number] [place] [address]- 8186 Feb, [facility] [place] [facility] [address] [id number] [place] [address]- 3968 Jan, [facility] [place] [facility] [address] [id number] [place] [address]- 6794 14 Jan, 2013 [facility] [place] [facility] [address] [id number] [place] [address]- 4558 Jan, [facility] [place] [facility] [address] [id number] [place] [address]- 9657 Jan, [facility] [place] [facility] [address] [id number] [place] [address]- 7482 Jan, [facility] [place] [facility] [address] [id number] [place] [address]- 3863 Jan, [facility] [place] [facility] [address] [id number] [place] [address]- 2946 Jan, [facility] [place] [facility] [address] [id number] [place] [address]- 4326 Jan, [facility] [place] [facility] [address] [id number] [place] [address]- 0614 Jan, [facility] [place] [facility] [address] [id number] [place] [address]- 3539 26 Dec, 2012 [facility] [place] [facility] [address] [id number] [place] [address]- 5486 16 Dec, 2012 [facility] [place] [facility] [address] [id number] [place] [address]- 8781 16 Dec, 2012 [facility] [place] [facility] [address] [id number] [place] [address]- 9043 13 Dec, 2012 [facility] [place] [facility] [address] [id number], [place] [address]- 2040 Nov, [facility] [place] [facility] [address] [id number], [place] [address]- 4525 Nov, [facility] [place] [facility] [address] [id number] [place] [address]- 7075 14 Nov, 2012 [facility] [place] [facility] [address] [id number] [place] [address]- 2312 05 Nov, 2012 [facility] [place] [facility] [address] [id number] [place] [address]- 9525 Oct, [facility] [place] [facility] [address] [id number] [place] [address]- 3767 Sep, [facility] [address] [id number] [place] [address]- 1337 August, [facility] [address] [id number] [place] [address]- 0460 August, [facility] [address] [id number] [place] [address]- 4580 August, [facility] [address] [id number] [place] [address]- 6457 August, [facility] [address] [id number] [place] [address]- 1469 August, [facility] [address] [id number] [place] [address]- 5667 August, [facility] [address] [id number] [place] [address]- 2561 August, [facility] [address] [id number] [place] [address]- 9483 August, [facility] [address] [id number] [place] [address]- 6592 August, [facility] [address] [id number] [place] [address]- 5823 August, [facility] [address] [id number] [place] [address]- 0637 August, [facility] [address] [id number] [place] [address]- 3519 August, [facility] [address] [id number] [place] [address]- 7007 Jul, [facility] [address] [id number] [place] [address]- 5264 Jul, [facility] [address] [id number] [place] [address]- 4717 Jul, [facility] [address] [id number] [place] [address]- 0495 15 Jul, 2012 [facility] [address] [id number] [place] [address]- 5790 Jul, [facility] [address] [id number] [place] [address]- 9752 Jul, [facility] [place] [facility] [address] [id number] [place] [address]- 0027 Jul, [facility] [address] [id number] [place] [address]- 5546 Jul, [facility] [place] [facility] [address] [id number] [place] [address]- 0234 Jul, [facility] [address] [id number] [place] [address]- 4788 Jul, [facility] [address] [id number] [place] [address]- 8378 Jul, [facility] [address] [id number] [place] [address]- 3817 Jun, [facility] [place] [facility] [address] [id number] [place] [address]- 8375 Jun, [facility] [place] [facility] [address] [id number] [place] [address]- 1898 Jun, [facility] [place] [facility] [address] [id number] [place] [address]- 1937 Jun, [facility] [place] [facility] [address] [id number] [place] [address]- 4648 May, [facility] [place] [facility] [address] [id number] [place] [address]- 6307 14 May, 2012 [facility] [place] [facility] [address] [id number] [place] [address]- 6973 05 May, 2012 [facility] [place] [facility] [address] [id number] [place] [address]- 6157 04 May, 2012 [facility] [address] [id number] [place] [address]- 6876 May, [facility] [place] [facility] [address] [id number] [place] [address]- 9376 May, [facility] [address] [id number] [place] [address]- 8886 Apr, [facility] [place] [facility] [address] [id number] [place] [address]- 8711 Apr, [facility] [address] [id number] [place] [address]- 6436 Apr, [facility] [place] [facility] [address] [id number] [place] [address]- 2878 Apr, [facility] [address] [id number] [place] [address]- 0021 15 Mar, 2012 [facility] [address] [id number] [place] [address]- 4749 14 Mar, 2012 [facility] [place] [facility] [address] [id number] [place] [address]- 1988 14 Mar, 2012 [facility] [address] [id number] [place] [address]- 3331 14 Mar, 2012 [facility] [place] [facility] [address] [id number] [place] [address]- 2917 14 Mar, 2012 [facility] [place] [facility] [address] [id number] [place] [address]- 0969 06 Mar, 2012 [facility] [place] [facility] [address] [id number] [place] [address]- 0253 06 Mar, 2012 [facility] [place] [facility] [address] [id number] [place] [address]- 3217 Feb, [facility] [place] [facility] [address] [id number] [place] [address]- 9257 Feb, [facility] [place] [facility] [address] [id number] [place] [address]- 7242 Feb, [facility] [place] [facility] [address] [id number] [place] [address]- 1771 Feb, [facility] [place] [facility] [address] [id number] [place] [address]- 5599 Jan, [facility] [place] [facility] [address] [id number] [place] [address]- 4242 Jan, [facility] [place] [facility] [address] [id number] [place] [address]- 2570 Jan, [facility] [place] [facility] [address] [id number] [place] [address] Jan, [facility] [place] [facility] [address] [id number] [place] [address] Jan, [facility] [place] [facility] [address] [id number] [place] [address] Jan, [facility] [place] [facility] [address] [id number] [place] [address] Dec, [facility] [place] [facility] [address] [id number] [place] [address] Dec, [facility] [place] [facility] [address] [id number] [place] [address] Nov, [facility] [place] [facility] [address] [id number] [place] [address] Sep, [facility] [place] [facility] [address] [id number] [place] [address] August, [facility] [place] [facility] [address] [id number] [place] [address] August, [facility] [place] [facility] [address] [id number] [place] [address] August, [facility] [place] [facility] [address] [id number] [place] [address] August, [facility] [place] [facility] [address] [id number] [place] [address] August, [facility] [place] [facility] [address] [id number] [place] [address] Jun, [facility] [place] [facility] [address] [id number] [place] [address] Jun, [facility] [place] [facility] [address] [id number] [place] [address] Apr, [facility] [place] [facility] [address] [id number] [place] [address] Apr, [facility] [place] [facility] [address] [id number] [place] [address] Mar, [facility] [place] [facility] [address] [id number] [place] [address] Feb, [facility] [place] [facility] [address] [id number] [place] [address] Feb, [facility] [place] [facility] [address] [id number] [place] [address] Feb, [facility] [place] [facility] [address] [id number] [place] [address] 17 Jan, 2011 [facility] [place] [facility] [address] [id number], [place] [address] 15 Jan, 2011 [facility] [place] [facility] [address] [id number], [place] [address] 15 Jan, 2011 [facility] [place] [facility] [address] [id number] [place] [address] 14 Jan, 2011 [facility] [place] [facility] [address] [id number] [place] [address] 15 May, 2010 [facility] [place] [facility] [address] [id number] [place] [address] Mar, [facility] [place] [facility] [address] [facility] [id number], [place] [address] Oct, [facility] [address] [facility] [id number], [place] [address] Sep, [facility] [address] [id number], [place] [address] Mar, [facility] [address] [id number], [place] [address] Jan, [facility] [address] [id number], [place] [address] Jan, [facility] [id number], [place] [address] May, IMMUNIZATIONS No Known Immunizations SOCIAL HISTORY Never Assessed REASON FOR VISIT 6 wk f/u. Consult Spike Moore RT(R) PLAN OF CARE Activity Details Follow Up 8 weeks Reason: VITAL SIGNS Height 62 in 2017-09-07 Blood pressure systolic 134 mmHg 2017-09-07 Blood pressure diastolic 90 mmHg 2017-09-07 MEDICATIONS Unknown Medications RESULTS No Results PROCEDURES Procedure Date Ordered Result Body Site DRAIN/INJECT, JOINT/BURSA September 07, 2017 DEPO MEDROL 40 MG/ML September 07, 2017 INSTRUCTIONS MEDICATIONS ADMINISTERED No Known Medications MEDICAL (GENERAL) HISTORY Type Description Date Medical History hypertension Medical History Colposcopy with loop electrode excision of the cervix was performed 06/2012, mild squamous atypia (no definite dyplasia). Performed at [facility] Dr. Joy. Medical History Acute [...]
--- OUTSIDE RECORDS SUMMARY | 2018-06-10 04:56 | XMS REPORT ---
Author Author KING BETI [facility] Address [address] [place] [address] Care Team Providers Care Lease Administrator Name Role Phone BETI STAUFFER Unavailable PROBLEMS Type Condition ICD9-CM Code FWL03-QL Code Onset Dates Condition Status SNOMED Code Problem Hematuria, unspecified type R31.9 Active 31375551 Problem Anxiety F41.9 Active 00568149 Problem Abnormal renal ultrasound R93.429 Active 49616551740059753 Problem Abnormal glucose R73.09 Active 140164977 Problem Chronic pain due to trauma G89.21 Active 667717013 Problem Hypokalemia E87.6 Active 21800832 Problem Neck pain M54.2 Active 71596812 Problem Neuroforaminal stenosis of spine M99.89 Active 958630124967 Problem Mixed hyperlipidemia E78.2 Active 57017330 Problem Essential hypertension I10 Active 01223015 ALLERGIES No Information ENCOUNTERS Encounter Location Date Diagnosis [facility] [place] [address] 00170- [address]52 Nov, [facility] [place] [id number] [place] [address] 64256- 1938 Nov, Hypokalemia E87.6 [facility] [place] [id number] [place] [address] 84715- 7945 Nov, [facility] [place] [id number] [place] [address] 78778- 3418 Nov, Abnormal renal ultrasound R93.429 [facility] [place] [id number] [place] [address] 37546- 0889 Nov, Abnormal renal ultrasound R93.429 [facility] [place] [id number] [place] [address] 27918- 4012 Nov, Hematuria, unspecified type R31.9 and Neuroforaminal stenosis of spine M99.89 [place] [id number] [place] [address] 68226- 4674 Nov, Dysuria R30.0 [place] [address] 55764- 9420 Oct, Lateral epicondylitis, right elbow M77.11 [place] [address] 87385- 5559 Oct, Visit for TB skin test Z11.1 ; Neuroforaminal stenosis of spine M99.89 and Essential hypertension I10 [place] [address] 47114- 7122 Oct, [place] [address] 70102- 2993 Oct, Neuroforaminal stenosis of spine M99.89 [place] [address] 43704- 1717 Oct, Visit for TB skin test Z11.1 [place] [address] 47593- 7932 Oct, Cystitis without hematuria N30.90 [place] [address] 56659- 6183 Sep, Screening breast examination Z12.39 [place] [address] 23412- 2666 Sep, Dysuria R30.0 and Cystitis without hematuria N30.90 [place] [id number] [place] [address] 74631- 8735 Sep, Essential hypertension I10 and Neuroforaminal stenosis of spine M99.89 [facility] [id number] [place] [address] 71734- 7065 Sep, Abnormal glucose R73.09 [facility] [address] 57449- 4676 August, Lateral epicondylitis, right elbow M77.11 [place] [id number] [place] [address] 71841- 2796 August, Screen for STD (sexually transmitted disease) Z11.3 [place] [id number] [place] [address] 68997- 5064 August, Neuroforaminal stenosis of spine M99.89 ; Mixed hyperlipidemia E78.2 ; Elevated fasting glucose R73.01 ; Screening mammogram, encounter for Z12.31 and Encounter for well woman exam without gynecological exam Z00.00 [place] [id number] [place] [address] 46823- 7209 August, Neuroforaminal stenosis of spine M99.89 [facility] [id number] [place] [address] 52930- 5115 August, Essential hypertension I10 ; Hypokalemia E87.6 and Mixed hyperlipidemia E78.2 [place] [id number] [place] [address] 26720- 0208 Jul, [place] [id number] [place] [address] 55374- 2799 Jul, Neuroforaminal stenosis of spine M99.89 [place] [id number] [place] [address] 73866- 1392 Jul, Lateral epicondylitis, right elbow M77.11 [place] [id number] [place] [address] 24417- 3856 Jul, [place] [id number] [place] [address] 55635- 0603 Jun, High ankle sprain of right lower extremity, initial encounter S93.431A [place] [id number] [place] [address] 92794- 5214 Jun, Essential hypertension I10 [place] [id number] [place] [address] 45907- 6635 Jun, [place] [id number] [place] [address] 60865- 8276 Jun, [place] [address] 91714- 7357 Jun, Neuroforaminal stenosis of spine M99.[address] 99809- 9119 Jun, Pain of right upper extremity M79.601 and Essential hypertension I10 [place] [address] 28182- 1230 Jun, [place] [address] 40725- 8883 Jun, Dysuria R30.0 ; Acute cystitis with hematuria N30.01 and Screen for STD (sexually transmitted disease) Z11.[address] 74560- 7342 May, Chronic pain due to trauma G89.[address] 81367- 0037 May, Essential hypertension I10 [address] 16122- 1813 May, Neuroforaminal stenosis of spine M99.89 [place] [id number] [place] [address] 88796- 5267 Apr, Allergic reaction, initial encounter T78.40XA [place] [id number] [place] [address] 09265- 7163 Apr, Low back pain, unspecified back pain laterality, unspecified chronicity, with sciatica presence unspecified M54.5 ; Acute cystitis with hematuria N30.01 ; Neuroforaminal stenosis of spine M99.89 ; Bilateral acute serous otitis media, recurrence not specified H65.03 ; Mixed hyperlipidemia E78.2 ; Essential hypertension I10 ; Immunization counseling Z71.89 and Encounter for immunization Z23 [facility] [place] [address] [place] [address] 19978- 6397 Apr, Neck pain M54.2 [facility] [place] [id number] [place] [address] 20042- 6138 Mar, Neuroforaminal stenosis of spine M99.89 [facility] [place] [id number] [place] [address] 34407- 7411 Mar, Pharyngitis due to other organism J02.8 [facility] [place] [id number] [place] [address] 89322- 7061 Feb, Neuroforaminal stenosis of spine M99.89 [facility] [place] [id number] [place] [address] 59595- 7258 Feb, UTI (urinary tract infection) N39.0 [facility] [place] [id number] [place] [address] 05877- 1947 Feb, Recent urinary tract infection Z87.440 ; Neuroforaminal stenosis of spine M99.89 ; Neck pain M54.2 ; Chronic pain due to trauma G89.21 and Recurrent UTI N39.0 [facility] [place] [id number] [place] [address] 68915- 3571 Feb, [facility] [place] [address] [place] [address] 55651- 7372 Jan, Neuroforaminal stenosis of spine M99.89 [facility] [place] [address] [place] [address] 11812- 0645 Dec, Neuroforaminal stenosis of spine M99.89 [facility] [place] [id number] [place] [address] 70590- 5475 18 Dec, 2016 Acute seasonal allergic rhinitis due to pollen J30.1 [facility] [place] [id number] [place] [address] 66202- 5172 08 Dec, 2016 [facility] [place] [address] [place] [address]- 4177 08 Dec, 2016 Acute seasonal allergic rhinitis, unspecified trigger J30.2 ; Allergic conjunctivitis of both eyes H10.13 and Dysfunction of both eustachian tubes H69.83 [place] [id number] [place] [address] 76159- 3084 07 Dec, 2016 [place] [address] 02200- 5871 06 Dec, 2016 Nevus D22.9 [place] [address] 90669- 7422 Nov, Chronic pain due to trauma G89.21 and Neuroforaminal stenosis of spine M99.89 [place] [id number] [place] [address] 66858- 3241 Nov, Neuroforaminal stenosis of spine M99.89 ; Essential hypertension I10 ; Mixed hyperlipidemia E78.2 ; Hypokalemia E87.6 ; Neck pain M54.2 and Nevus D22.9 [place] [id number] [place] [address] 29156- 0902 Oct, Neuroforaminal stenosis of spine M99.89 [place] [id number] [place] [address] 95442- 4501 Sep, Neuroforaminal stenosis of spine M99.89 [place] [id number] [place] [address] 55745- 7436 Sep, [place] [id number] [place] [address] 86560- 8304 August, [place] [address] 43379- 4065 August, Neck pain M54.2 and Neuroforaminal stenosis of spine M99.89 [place] [id number] [place] [address] 58368- 8895 August, Routine gynecological examination Z01.419 and Screening breast examination Z12.39 [facility] [place] [address] [address]- 8361 Jul, [facility] [place] [id number] [place] [address] 56666- 1092 Jul, [facility] [place] [id number] [place] [address] 58501- 8157 Jul, Neuroforaminal stenosis of spine M99.89 [facility] [place] [id number] [place] [address] 07388- 3343 Jul, [facility] [place] [id number] [place] [address] 24769- 0084 Jul, 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 [facility] [place] [id number] [place] [address] 26768- 5439 Jul, [facility] [place] [id number] [place] [address] 89775- 9906 Jul, [facility] [place] [id number] [place] [address] 60256- 2153 Jun, Neuroforaminal stenosis of spine M99.89 [facility] [place] [id number] [place] [address] 31202- 3795 Jun, Uterine leiomyoma, unspecified location D25.9 and Allergic reaction caused by a drug, initial encounter T78.40XA [facility] [place] [address] [place] [address] 60961- 2985 Jun, [facility] [place] [id number] [place] [address] 82530- 1092 May, UTI symptoms R39.9 and Pain of right sacroiliac joint M53.3 [facility] [place] [id number] [place] [address] 58557- 0566 May, Neuroforaminal stenosis of spine M99.89 [facility] [place] [id number] [place] [address] 38845- 6340 May, [facility] [place] [id number] [place] [address] 19284- 0642 May, Acute mucoid otitis media of left ear H65.112 and Acute non- recurrent maxillary sinusitis J01.00 [place] [address] [place] [address] 18192- 3736 May, Acute bacterial conjunctivitis of both eyes H10.33 ; Left arm pain M79.602 and Hypokalemia E87.6 [place] [id number] [place] [address] 59856- 2952 Apr, [place] [id number] [place] [address] 48532- 4575 Apr, Neuroforaminal stenosis of spine M99.89 ; Neck pain M54.2 ; Chronic pain due to trauma G89.21 ; Mixed hyperlipidemia E78.2 ; Essential hypertension I10 and Hypokalemia E87.6 [place] [id number] [place] [address] 99823- 4905 Mar, Oral candidiasis B37.0 ; Neuroforaminal stenosis of spine M99.89 ; Neck pain M54.2 and Chronic pain due to trauma G89.21 [place] [id number] [place] [address] 34049- 8866 Feb, [place] [id number] [place] [address] 24028- 9067 Feb, [place] [id number] [place] [address] 84090- 2621 Feb, UTI (urinary tract infection) N39.0 [place] [id number] [place] [address] 86481- 2000 Feb, Dysuria R30.0 [place] [id number] [place] [address] 69729- 5479 Feb, Dysuria R30.0 [place] [address] [address]- 2472 Feb, Neuroforaminal stenosis of spine M99.89 ; Neck pain M54.2 ; Essential hypertension I10 ; Chronic pain due to trauma G89.21 ; Dysuria R30.0 ; Abnormal MRI, shoulder R93.8 and Acute cystitis without hematuria N30.00 [facility] [place] [id number] [place] [address] 59262- 7418 Jan, [facility] [place] [id number] [place] [address] 50987- 5411 Jan, [facility] [place] [id number] [place] [address] 55480- 1567 Jan, [facility] [place] [id number] [place] [address] 07514- 1771 Jan, Abnormal MRI R93.8 [facility] [place] [id number] [place] [address] 50962- 8701 29 Dec, 2015 [facility] [id number] [place] [address] 57568 -1445 15 Dec, 2015 Acute pain of left shoulder M25.512 [facility] [place] [address] [place] [address] 17567- 6174 09 Dec, 2015 [facility] [place] [address] [address]- 2766 08 Dec, 2015 [facility] [place] [id number] [place] [address] 89126- 4584 07 Dec, 2015 Acute pain of left shoulder M25.512 [facility] [place] [id number] [place] [address] 69230- 9728 Nov, [facility] [place] [id number] [place] [address] 21940- 3628 Nov, Neuroforaminal stenosis of spine M99.89 ; Neck pain M54.2 ; Abnormal mammogram R92.8 ; Essential hypertension I10 and Chronic pain due to trauma G89.21 [facility] [place] [address] [address]- 3129 Nov, [facility] [place] [id number] [address]- 0810 Oct, Acute stress disorder F43.0 [facility] [place] [address] [address]- 2965 Oct, [facility] [place] [id number] [address]- 5170 Oct, [facility] [place] [address] [address]- 1628 Oct, [facility] [place] [id number] [place] [address] 45379- 6111 Sep, [facility] [place] [address] [address]- 3321 August, [facility] [place] [address] [address]- 3696 Jul, Neuroforaminal stenosis of spine M99.89 ; Neck pain M54.2 ; Abnormal mammogram R92.8 and Essential hypertension I10 [facility] [place] [address] [address]- 6913 Jul, [facility] [place] [address] [address]- 3057 Jul, [facility] [place] [address] [address]- 2218 Jul, Abnormal mammogram R92.8 [facility] [place] [address] [address]- 8904 Jul, [facility] [place] [address] [address]- 4082 Jul, UTI (urinary tract infection) N39.0 [facility] [place] [address], [place] [address]- 0235 Jul, Dysuria R30.0 [facility] [place] [address], [place] [address]- 0068 Jun, [facility] [place] [id number] [place] [address] 583020- 1439 Jun, [facility] [place] [id number] [place] [address] 98659- 4655 Jun, Hypokalemia E87.6 and Hematuria R31.9 [facility] [place] [id number] [place] [address] 84433- 5595 Jun, Hypokalemia E87.6 [place] [id number] [place] [address] 84807- 7500 Jun, [place] [id number] [place] [address] 09398- 7027 Jun, Hypokalemia E87.6 [place] [id number] [place] [address] 76265- 4036 Jun, Hypokalemia E87.6 [place] [id number] [place] [address] 40372- 9418 Jun, Neuroforaminal stenosis of spine M99.89 ; Hypokalemia E87.6 ; Neck pain M54.2 ; Essential hypertension I10 ; Mixed hyperlipidemia E78.2 and Screening breast examination Z12.39 [place] [id number] [place] [address] 64711- 1135 Jun, Dysuria R30.0 ; UTI (urinary tract infection) N39.0 and Hematuria R31.9 [place] [id number] [place] [address] 10933- 3153 May, [place] [id number] [place] [address] 24660- 9856 May, High risk sexual behavior Z72.51 ; Hypokalemia E87.6 ; Neuroforaminal stenosis of spine M99.89 ; Neck pain M54.2 ; Essential hypertension I10 ; Mixed hyperlipidemia E78.2 ; STD exposure Z20.2 and Concern about STD in female without diagnosis Z71.1 [place] [id number] [place] [address] 83005- 2397 16 May, 2015 Neuroforaminal stenosis of spine M99.89 ; Neck pain M54.2 ; Hypokalemia E87.6 ; Essential hypertension I10 and Mixed hyperlipidemia E78.2 [place] [address] 03049- 8843 11 May, 2015 [facility] [address] 31726 -8989 08 May, 2015 High risk sexual behavior Z72.51 ; STD exposure Z20.2 and Concern about STD in female without diagnosis Z71.1 [place] [id number] [place] [address] 77364- 0965 May, [place] [address] 53883- 5028 Apr, Neuroforaminal stenosis of spine M99.89 ; Mixed hyperlipidemia E78.2 ; Essential hypertension I10 and Hypokalemia E87.6 [place] [id number] [place] [address] 75642- 9344 Mar, [place] [id number] [place] [address] 43521- 9464 Mar, Hypokalemia E87.6 [place] [id number] [place] [address] 93651- 5896 Mar, Neuroforaminal stenosis of spine M99.89 ; Mixed hyperlipidemia E78.2 ; Neck pain M54.2 ; Essential hypertension I10 ; Abnormal fasting glucose R73.09 ; Hypokalemia E87.6 and Constipation K59.00 [place] [id number] [place] [address] 34211- 3489 Feb, Neuroforaminal stenosis of spine M99.89 ; Mixed hyperlipidemia E78.2 ; Neck pain M54.2 ; Essential hypertension I10 ; Abnormal fasting glucose R73.09 ; Hypokalemia E87.6 and Constipation K59.00 [place] [address] 98424- 0337 Feb, Elevated fasting blood sugar R73.01 [place] [address] 60926- 6298 Feb, Elevated fasting blood sugar R73.01 [place] [address] 78226- 7839 Feb, Hair loss L65.[address] 99287- 9649 Feb, Sinusitis J32.9 ; Essential hypertension I10 and Hair loss L65.9 [place] [address] [address] Jan, [place] [address] [address] Jan, Essential hypertension I10 ; Neuroforaminal stenosis of spine M99.89 ; Neck pain M54.2 ; Mixed hyperlipidemia E78.2 and Anxiety F41.9 [place] [address] [address] Jan, [place] [address] [address] Jan, Mixed hyperlipidemia E78.2 ; Essential (primary) hypertension I10 ; Strain of muscle, fascia and tendon at neck level, subsequent encounter S16.1XXD and Tension-type headache, unspecified, not intractable G44.209 [place] [address] [address] Dec, Lumbar back pain 724.2 and Neuroforaminal stenosis of spine 724.00 [place] [address] [address] Nov, [facility] [place] [address] [address] Nov, Lumbar back pain 724.2 and Neuroforaminal stenosis of spine 724.00 [facility] [place] [address] [place] [id number] [place] [address] Nov, Edema 782.3 ; Lumbar back pain 724.2 ; Essential hypertension, benign 401.1 ; Hyperlipemia 272.4 ; Neuroforaminal stenosis of spine 724.00 and Post-concussion headache 339.20 [facility] [place] [address] [place] [id number] [place] [address] Nov, [facility] [place] [address] [place] [id number] [place] [address] Nov, [facility] [place] [address] [id number] [place] [address] Oct, Essential hypertension, benign 401.1 [facility] [place] [facility] [id number] [place] [address]- [address]906 Oct, Edema 782.3 ; Lumbar back pain 724.2 ; Essential hypertension, benign 401.1 ; Hyperlipemia 272.4 ; Neuroforaminal stenosis of spine 724.00 and Post-concussion headache 339.20 [facility] [place] [address] [address] Oct, [facility] [place] [id number] [place] [address]- 8130 Oct, Edema 782.3 [facility] [place] [id number] [place] [address]48- 9973 Oct, Lumbar back pain 724.2 [facility] [place] [id number] [place] [address]609- 1222 Oct, Cervicalgia 723.1 ; Lumbar back pain 724.2 and High risk medication use V58.69 [facility] [place] [id number] [address] Sep, [facility] [place] [address], [place] [address] Sep, Lumbar strain 847.2 [facility] [place] [id number] [address] 8[address] August, Edema 782.3 and Eustachian tube dysfunction 381.81 [facility] [place] [id number] [place] [address]- 7129 August, [facility] [place] [id number] [place] [address]32- 3012 August, Eustachian tube dysfunction 381.81 [facility] [place] [id number] [address] 8[address] Jul, Otalgia 388.70 and Otitis media 382.9 [facility] [place] [id number] [address] Jul, [facility] [place] [address], [place] [address] Jul, [facility] [place] [address], [place] [address] 0211 Jul, [facility] [place] [address], [place] [address]- [address] 14 Jul, 2014 [facility] [place] [address] [address]- 7670 Jul, [facility] [place] [address], [place] [address]- 6416 Jun, [facility] [place] [address], [place] [address] 2543 Jun, [facility] [place] [address], [place] [address]- 2546 Jun, [facility] [place] [address], [place] [address]- 7439 May, 2014 [facility] [place] [facility] [address] [id number] [place] [address]- 9768 May, 2014 [facility] [place] [facility] [address] [id number] [place] [address]- 1616 May, 2014 [facility] [place] [facility] [address] [facility] [id number] [place] [address]- 0866 May, 2014 [facility] [place] [facility] [address] [id number] [place] [address]- 4199 May, 2014 [facility] [place] [facility] [address] [id number] [place] [address]- 9498 May, 2014 [facility] [place] [facility] [address] [facility] [id number] [place] [address]- 8018 May, 2014 [facility] [place] [facility] [address] [facility] [id number] [place] [address]- 8229 May, 2014 [facility] [place] [facility] [address] [facility] [id number] [place] [address]- 3904 May, [facility] [place] [facility] [address] [facility] [id number] [place] [address]- 8551 May, [facility] [place] [facility] [address] [facility] [id number] [place] [address]- 4489 Apr, [facility] [place] [facility] [address] [facility] [id number] [place] [address]- 5156 Apr, [facility] [place] [facility] [address] [facility] [id number], [place] [address]- 5521 Apr, [facility] [place] [facility] [address] [id number] [place] [address]- 8844 Apr, [facility] [place] [facility] [address] [facility] [id number] [place] [address]- 6352 Apr, [facility] [place] [facility] [address] [facility] [id number], [place] [address]- 1280 Apr, [facility] [place] [facility] [address] [id number] [place] [address]- 8467 Apr, [facility] [place] [facility] [address] [id number] [place] [address]- 4459 Apr, [facility] [place] [facility] [address] [id number] [place] [address]- 3058 Apr, [facility] [place] [facility] [address] [id number] [place] [address]- 4094 Apr, [facility] [place] [facility] [address] [id number] [place] [address]- 8153 Apr, [facility] [place] [facility] [address] [id number] [place] [address]- 2247 Apr, [facility] [place] [facility] [address] [id number] [place] [address]- 4662 Apr, [facility] [place] [facility] [address] [id number] [place] [address]- 4902 Apr, [facility] [place] [facility] [address] [id number] [place] [address]- 9799 Apr, [facility] [place] [facility] [address] [id number] [place] [address]- 4685 Mar, [facility] [place] [facility] [address] [id number] [place] [address]- 1148 Mar, [facility] [place] [facility] [address] [id number] [place] [address]- 3599 Mar, [facility] [place] [facility] [address] [id number] [place] [address]- 2290 Mar, [facility] [place] [facility] [address] [id number] [place] [address]- 4845 Feb, [facility] [place] [facility] [address] [id number] [place] [address]- 2072 Feb, [facility] [place] [facility] [address] [id number] [place] [address]- 4106 Feb, [facility] [place] [facility] [address] [id number] [place] 4478 Feb, [facility] [place] [facility] [address] [id number] [place] [address]- 7754 Jan, [facility] [place] [facility] [address] [id number] [place] [address]- 9929 Jan, [facility] [place] [facility] [address] [id number] [place] [address]- 9309 Jan, [facility] [place] [facility] [address] [id number] [place] [address]- 6232 Jan, [facility] [place] [facility] [address] [id number] [place] [address]- 8880 Jan, [facility] [place] [facility] [address] [id number] [place] [address]- 2393 Jan, [facility] [place] [facility] [address] [id number] [place] [address]- 1232 Jan, [facility] [place] [facility] [address] [id number] [place] [address]- 1284 Jan, [facility] [place] [facility] [address] [id number] [place] [address]- 6018 Dec, [facility] [place] [facility] [address] [id number] [place] [address]- 7976 Dec, [facility] [place] [facility] [address] [id number], [place] [address]- 5992 Dec, [facility] [place] [facility] [address] [id number] [place] [address]- 4080 Dec, [facility] [place] [facility] [address] [id number] [place] [address]- 6284 Oct, [facility] [place] [facility] [address] [id number] [place] [address]- 6532 Oct, [facility] [place] [facility] [address] [id number] [place] [address]- 6885 Oct, 2013 [facility] [place] [facility] [address] [id number] [place] [address]- 8881 Oct, 2013 [facility] [place] [facility] [address] [id number] [place] [address]- 1562 Oct, 2013 [facility] [place] [facility] [address] [id number] [place] [address]- 5571 Oct, 2013 [facility] [place] [facility] [address] [id number] [place] [address]- 8690 Oct, 2013 [facility] [place] [facility] [address] [id number] [place] [address]- 7815 Oct, [facility] [place] [facility] [address] [id number] [place] [address]- 6070 Sep, [facility] [place] [facility] [address] [id number] [place] [address]- 0217 Sep, [facility] [place] [facility] [address] [id number] [place] [address]- 9682 Sep, [facility] [place] [facility] [address] [id number] [place] [address]- 2009 Sep, [facility] [place] [facility] [address] [id number] [place] [address]- 2274 Sep, [facility] [place] [facility] [address] [id number] [place] [address]- 3768 Sep, [facility] [place] [facility] [address] [id number] [place] [address]- 9693 Sep, [facility] [place] [facility] [address] [id number] [place] [address]- 2956 Sep, [facility] [place] [facility] [address] [id number] [place] [address]- 6208 Sep, [facility] [place] [facility] [address] [id number] [place] [address]- 0930 Sep, [facility] [address] [id number] [place] [address]- 8734 August, [facility] [place] [facility] [address] [id number] [place] [address]- 7234 August, [facility] [place] [facility] [address] [id number] [place] [address]- 3797 August, [facility] [place] [facility] [address] [id number] [place] [address]- 1521 August, [facility] [place] [facility] [address] [id number] [place] [address]- 8096 August, [facility] [place] [facility] [address] [id number] [place] [address]- 9341 August, [facility] [place] [facility] [address] [id number] [place] [address]- 4995 August, [facility] [place] [facility] [address] [id number] [place] [address]- 7867 August, [facility] [place] [facility] [address] [id number] [place] [address]- 0097 August, [facility] [place] [facility] [address] [id number] [place] [address]- 8274 August[facility] [place] [facility] [address] [id number] [place] [address]- 6162 August, [facility] [place] [facility] [address] [id number] [place] [address]- 2835 August, [facility] [place] [facility] [address] [id number] [place] [address]- 8417 Jul, [facility] [place] [facility] [address] [id number] [place] [address]- 1184 Jul, [facility] [place] [facility] [address] [id number] [place] [address]- 5335 Jul, [facility] [place] [facility] [address] [id number], [place] [address]- 8910 Jul, [facility] [place] [facility] [address] [id number] [place] [address]- 5318 Jul, [facility] [place] [facility] [address] [id number] [place] [address]- 9462 Jul, [facility] [place] [facility] [address] [id number] [place] [address]- 7133 Jun, [facility] [place] [facility] [address] [id number] [place] [address]- 2693 Jun, [facility] [place] [facility] [address] [id number] [place] [address]- 3936 May, [facility] [place] [facility] [address] [id number] [place] [address]- 8590 May, [facility] [place] [facility] [address] [id number] [place] [address]- 1802 Apr, [facility] [place] [facility] [address] [id number] [place] [address]- 9847 Apr, [facility] [place] [facility] [address] [id number] [place] [address]- 4465 Apr, [facility] [place] [facility] [address] [id number] [place] [address]- 7806 Apr, [facility] [place] [facility] [address] [id number] [place] [address]- 6290 Apr, [facility] [place] [facility] [address] [id number] [place] [address]- 3510 Apr, [facility] [place] [facility] [address] [id number] [place] [address]- 3702 Apr, [facility] [place] [facility] [address] [id number] [place] [address]- 4339 Apr, [facility] [place] [facility] [address] [id number] [place] [address]- 7310 Apr, [facility] [place] [facility] [address] [id number] [place] [address]- 7753 Apr, [facility] [place] [facility] [address] [id number] [place] [address]- 1553 Apr, [facility] [place] [facility] [address] [id number] [place] [address]- 9742 Apr, [facility] [place] [facility] [address] [id number] [place] [address]- 8259 Apr, [facility] [place] [facility] [address] [id number] [place] [address]- 8167 Mar, [facility] [place] [facility] [address] [id number] [place] [address]- 7564 Mar, [facility] [place] [facility] [address] [id number] [place] [address]- 7662 Mar, [facility] [place] [facility] [address] [id number] [place] [address]- 5727 Mar, [facility] [place] [facility] [address] [id number] [place] [address]- 1191 Feb, [facility] [place] [facility] [address] [id number] [place] [address]- 0672 Feb, [facility] [place] [facility] [address] [id number] [place] [address]- 2228 Feb, [facility] [place] [facility] [address] [id number] [place] [address]- 9892 Feb, [facility] [place] [facility] [address] [id number] [place] [address]- 6983 14 Jan, 2013 [facility] [place] [facility] [address] [id number] [place] [address]- 7567 14 Jan, 2013 [facility] [place] [facility] [address] [id number] [place] [address]- 0192 11 Jan, 2013 [facility] [place] [facility] [address] [id number] [place] [address]- 6144 Jan, [facility] [place] [facility] [address] [id number] [place] [address]- 6332 Jan, [facility] [place] [facility] [address] [id number] [place] [address]- 0956 10 Jan, 2013 [facility] [place] [facility] [address] [id number] [place] [address]- 9401 Jan, [facility] [place] [facility] [address] [id number] [place] [address]- 8531 Jan, [facility] [place] [facility] [address] [id number] [place] [address]- 1743 Jan, [facility] [place] [facility] [address] [id number] [place] [address]- 5432 26 Dec, 2012 [facility] [place] [facility] [address] [id number] [place] [address]- 9696 16 Dec, 2012 [facility] [place] [facility] [address] [id number], [place] [address]- 7804 16 Dec, 2012 [facility] [place] [facility] [address] [id number] [place] [address]- 9740 13 Dec, 2012 [facility] [place] [facility] [address] [id number] [place] [address]- 5917 Nov, [facility] [place] [facility] [address] [id number], [place] [address]- 7981 17 Nov, 2012 [facility] [place] [facility] [address] [id number], [place] [address]- 4731 14 Nov, 2012 [facility] [place] [facility] [address] [id number] [place] [address]- 2082 05 Nov, 2012 [facility] [place] [facility] [address] [id number], [place] [address]- 1865 18 Oct, 2012 [facility] [place] [facility] [address] [id number] [place] [address]- 2410 24 Sep, 2012 [facility] [place] [facility] [address] [id number] [place] [address]- 4618 August, [facility] [address] [id number] [place] August, [facility] [address] [id number] [place] [address]- 2493 August, [facility] [address] [id number] [place] [address]- 0249 August, [facility] [address] [id number] [place] [address]- 7925 August, [facility] [address] [id number] [place] [address]- 9442 August, [facility] [address] [id number] [place] [address]- 5937 August, [facility] [address] [id number] [place] [address]- 5674 August, [facility] [address] [id number] [place] [address]- 9944 August, [facility] [address] [id number] [place] [address]- 0821 August, [facility] [address] [id number] [place] [address]- 5755 August, [facility] [address] [id number] [place] [address]- 7162 August, [facility] [address] [id number] [place] [address]- 3004 Jul, [facility] [address] [id number] [place] [address]- 5386 Jul, [facility] [address] [id number] [place] [address]- 1058 18 Jul, 2012 [facility] [address] [id number] [place] [address]- 1221 15 Jul, 2012 [facility] [address] [id number] [place] [address]- 2073 Jul, [facility] [address] [id number] [place] [address]- 6833 Jul, [facility] [address] [id number] [place] [address]- 9059 Jul, [facility] [address] [id number] [place] [address]- 0067 Jul, [facility] [address] [id number] [place] [address]- 5186 Jul, [facility] [address] [id number] [place] [address]- 7689 Jul, [facility] [address] [id number] [place] [address]- 5799 Jul, [facility] [address] [id number] [place] [address]- 1119 Jun, [facility] [address] [id number] [place] [address]- 3924 Jun, [facility] [address] [id number] [place] [address]- 2634 Jun, [facility] [address] [id number] [place] [address]- 7647 Jun, [facility] [address] [id number] [place] [address]- 8604 May, [facility] [place] [facility] [address] [id number] [place] [address] 14 May, 2012 [facility] [place] [facility] [address] [id number] [place] [address] 05 May, 2012 [facility] [place] [facility] [address] [id number] [place] [address] May, [facility] [address] [id number] [place] [address] May, [facility] [address] [id number] [place] [address] May, [facility] [place] [facility] [address] [id number] [place] [address] Apr, [facility] [address] [id number] [place] [address] Apr, [facility] [place] [facility] [address] [id number] [place] [address] Apr, [facility] [address] [id number] [place] [address] Apr, [facility] [address] [id number] [place] [address] 15 Mar, 2012 [facility] [address] [id number] [place] [address] 14 Mar, 2012 [facility] [address] [id number] [place] [address] Mar, [facility] [address] [id number] [place] [address] Mar, [facility] [address] [id number] [place] [address] Mar, [facility] [address] [id number] [place] [address] Mar, [facility] [place] [facility] [address] [id number] [place] [address] Mar, [facility] [place] [facility] [address] [id number] [place] [address] Feb, [facility] [place] [facility] [address] [id number] [place] [address] Feb, [facility] [address] [id number] [place] [address] Feb, [facility] [place] [facility] [address] [id number] [place] [address] Feb, [facility] [place] [facility] [address] [id number] [place] [address] Jan, [facility] [place] [facility] [address] [id number] [place] [address] Jan, [facility] [place] [facility] [address] [id number] [place] [address] Jan, [facility] [place] [facility] [address] [id number] [place] [address] Jan, [facility] [place] [facility] [address] [id number] [place] [address] Jan, [facility] [place] [facility] [address] [id number] [place] [address] Jan, [facility] [place] [facility] [address] [id number] [place] [address] Dec, [facility] [place] [facility] [address] [id number] [place] [address] Dec, [facility] [place] [facility] [address] [id number] [place] [address] Nov, [facility] [place] [facility] [address] [id number] [place] [address] Sep, [facility] [place] [facility] [address] [id number] [place] [address] August, [facility] [place] [facility] [address] [id number] [place] [address] August, [facility] [place] [facility] [address] [id number] [place] [address] August, [facility] [place] [facility] [address] [id number] [place] [address] August, [facility] [place] [facility] [address] [id number] [place] [address] August, [facility] [place] [facility] [address] [id number] [place] [address] Jun, [facility] [place] [facility] [address] [id number] [place] [address] Jun, [facility] [place] [facility] [address] [id number] [place] [address] Apr, [facility] [place] [facility] [address] [id number] [place] [address] Apr, [facility] [place] [facility] [address] [id number] [place] [address] Mar, [facility] [place] [facility] [address] [id number] [place] [address]70 Feb, [facility] [place] [facility] [address] [id number] [place] [address] Feb, [facility] [place] [facility] [address] [id number] [place] [address] Feb, [facility] [place] [facility] [address] [id number] [place] [address] 17 Jan, 2011 [facility] [place] [facility] [address] [id number] [place] [address] 15 Jan, 2011 [facility] [place] [facility] [address] [id number] [address] 15 Jan, 2011 [facility] [place] [facility] [address] [id number], [place] [address] 14 Jan, 2011 [facility] [place] [facility] [address] [id number] [place] [address] 15 May, 2010 [facility] [place] [facility] [address] [id number] [place] [address] Mar, [facility] [place] [facility] [address] [id number] [place] [address] Oct, [facility] [place] [facility] [address] [facility] [id number], [place] [address] 14 Sep, 2009 [facility] [place] [address] [id number], [place] [address] Mar, [facility] [place] [address] [id number], [place] [address] Jan, [facility] [place] [address] [id number], [place] [address] Jan, [facility] [place] [address] [facility] [id number] [address] May, IMMUNIZATIONS No Known Immunizations SOCIAL HISTORY Never Assessed REASON FOR VISIT [facility] PLAN OF CARE VITAL SIGNS MEDICATIONS Unknown Medications RESULTS No Results PROCEDURES No Known procedures INSTRUCTIONS MEDICATIONS ADMINISTERED No Known Medications MEDICAL (GENERAL) HISTORY Type Description Date Medical History hypertension Medical History Colposcopy with loop electrode excision of the cervix was performed 06/2012, mild squamous atypia (no definite dyplasia). Performed at [facility] Dr. Joy. Medical History Acute suppurative [...]
--- OUTSIDE RECORDS SUMMARY | 2018-06-10 04:57 | XMS REPORT ---
Author Author SIMA HODGES [facility] Address [address] [place] [address] Care Team Providers Care Outbound Sales Consultant Name Role Phone SIMA HODGES Unavailable PROBLEMS Type Condition ICD9-CM Code VML98-EC Code Onset Dates Condition Status SNOMED Code Problem Hematuria, unspecified type R31.9 Active 37108010 Problem Anxiety F41.9 Active 59926028 Problem Abnormal renal ultrasound R93.429 Active 12477890746897709 Problem Abnormal glucose R73.09 Active 425061777 Problem Chronic pain due to trauma G89.21 Active 009904369 Problem Hypokalemia E87.6 Active 27182929 Problem Neck pain M54.2 Active 53256319 Problem Neuroforaminal stenosis of spine M99.89 Active 568809628442 Problem Mixed hyperlipidemia E78.2 Active 92650789 Problem Essential hypertension I10 Active 53533039 ALLERGIES No Information ENCOUNTERS Encounter Location Date Diagnosis [facility] [id number] [place] [address] 45968- 8776 Nov, [facility] [id number] [place] [address] 16199- 1077 Nov, Abnormal renal ultrasound R93.429 [facility] [id number] [place] [address] 49750- 2392 Nov, Abnormal renal ultrasound R93.429 [facility] [id number] [place] [address] 74026- 2974 Nov, Hematuria, unspecified type R31.9 and Neuroforaminal stenosis of spine M99.89 [facility] [id number] [place] [address] 62572- 5313 07 Nov, 2017 Dysuria R30.0 [facility] [address] [place] [address]- 9542 Oct, Lateral epicondylitis, right elbow M77.11 [facility] [id number] [place] [address] 48377- 0967 Oct, Neuroforaminal stenosis of spine M99.89 ; Visit for TB skin test Z11.1 and Essential hypertension I10 [facility] [address] 02031- 4155 Oct, [facility] [address] 53358- 2267 Oct, Neuroforaminal stenosis of spine M99.89 [facility] [address] 23637- 6452 Oct, Visit for TB skin test Z11.1 [facility] [id number] [place] [address] 25887- 5119 Oct, Cystitis without hematuria N30.90 [facility] [id number] [place] [address] 30574- 7243 Sep, Screening breast examination Z12.39 [facility] [address] 22591- 3728 Sep, Dysuria R30.0 and Cystitis without hematuria N30.90 [facility] [id number] [place] [address] 89348- 9801 Sep, Essential hypertension I10 and Neuroforaminal stenosis of spine M99.89 [facility] [id number] [place] [address] 57208- 7990 Sep, Abnormal glucose R73.09 [facility] [address] 78726- 4014 August, Lateral epicondylitis, right elbow M77.11 [facility] [id number] [place] [address] 24072- 5348 August, Screen for STD (sexually transmitted disease) Z11.3 [facility] [facility] [id number] [place] [address] 22308- 2196 August, Neuroforaminal stenosis of spine M99.89 ; Mixed hyperlipidemia E78.2 ; Elevated fasting glucose R73.01 ; Screening mammogram, encounter for Z12.31 and Encounter for well woman exam without gynecological exam Z00.00 [facility] [id number] [place] [address] 41756- 6684 August, Neuroforaminal stenosis of spine M99.89 [facility] [id number] [place] [address] 97406- 6393 August, Essential hypertension I10 ; Hypokalemia E87.6 and Mixed hyperlipidemia E78.2 [facility] [id number] [place] [address] 51069- 5976 Jul, [facility] [address] 17445- 7558 Jul, Neuroforaminal stenosis of spine M99.89 [facility] [id number] [place] [address] 11567- 1370 Jul, Lateral epicondylitis, right elbow M77.11 [facility] [id number] [place] [address] 05739- 3819 Jul, [facility] [id number] [place] [address] 18217- 7779 Jun, High ankle sprain of right lower extremity, initial encounter S93.431A [facility] [id number] [place] [address] 51217- 7859 Jun, Essential hypertension I10 [facility] [id number] [place] [address] 32718- 7342 Jun, [facility] [id number] [place] [address] 50554- 3711 Jun, [facility] [id number] [place] [address] 83577- 5602 Jun, Neuroforaminal stenosis of spine M99.89 [facility] [id number] [place] [address] 26802- 8150 Jun, Pain of right upper extremity M79.601 and Essential hypertension I10 [facility] [id number] [place] [address] 20383- 8051 Jun, [address] 27123- 6165 Jun, Dysuria R30.0 ; Acute cystitis with hematuria N30.01 and Screen for STD (sexually transmitted disease) Z11.[address] 95551- 6231 May, Chronic pain due to trauma G89.21 [place] [id number] [place] [address] 80671- 5166 May, Essential hypertension I10 [address] 77065- 3049 May, Neuroforaminal stenosis of spine M99.89 [place] [id number] [place] [address] 88173- 2895 Apr, Allergic reaction, initial encounter T78.40XA [place] [id number] [place] [address] 76464- 2870 Apr, Low back pain, unspecified back pain laterality, unspecified chronicity, with sciatica presence unspecified M54.5 ; Acute cystitis with hematuria N30.01 ; Neuroforaminal stenosis of spine M99.89 ; Bilateral acute serous otitis media, recurrence not specified H65.03 ; Mixed hyperlipidemia E78.2 ; Essential hypertension I10 ; Immunization counseling Z71.89 and Encounter for immunization Z23 [place] [id number] [place] [address] 37941- 1852 Apr, Neck pain M54.[address] 00076- 8664 Mar, Neuroforaminal stenosis of spine M99.89 [facility] [id number] [place] [address] 32208- 9048 Mar, Pharyngitis due to other organism J02.8 [facility] [id number] [place] [address] 11091- 4940 Feb, Neuroforaminal stenosis of spine M99.89 [facility] [id number] [place] [address] 73484- 9319 Feb, UTI (urinary tract infection) N39.0 [facility] [id number] [place] [address] 44021- 8384 Feb, Recent urinary tract infection Z87.440 ; Neuroforaminal stenosis of spine M99.89 ; Neck pain M54.2 ; Chronic pain due to trauma G89.21 and Recurrent UTI N39.0 [facility] [id number] [place] [address] 72990- 3330 Feb, [facility] [id number] [place] [address] 32264- 8984 Jan, Neuroforaminal stenosis of spine M99.89 [facility] [id number] [place] [address] 77670- 2746 Dec, Neuroforaminal stenosis of spine M99.89 [facility] [id number] [place] [address] 64751- 1556 18 Dec, 2016 Acute seasonal allergic rhinitis due to pollen J30.1 [facility] [id number] [place] [address] 80962- 0644 Dec, [facility] [id number] [place] [address] 47473- 1897 08 Dec, 2016 Acute seasonal allergic rhinitis, unspecified trigger J30.2 ; Allergic conjunctivitis of both eyes H10.13 and Dysfunction of both eustachian tubes H69.83 [facility] [id number] [address]- 0435 07 Dec, 2016 [facility] [id number] [place] [address] 33949- 9064 Dec, Nevus D22.9 [facility] [id number] [place] [address] 07155- 4714 Nov, Chronic pain due to trauma G89.21 and Neuroforaminal stenosis of spine M99.89 [facility] [id number] [place] [address] 96006- 6968 Nov, Neuroforaminal stenosis of spine M99.89 ; Essential hypertension I10 ; Mixed hyperlipidemia E78.2 ; Hypokalemia E87.6 ; Neck pain M54.2 and Nevus D22.9 [facility] [id number] [place] [address] 43078- 7629 Oct, Neuroforaminal stenosis of spine M99.89 [facility] [id number] [place] [address] 01135- 0668 Sep, Neuroforaminal stenosis of spine M99.89 [facility] [id number] [place] [address] 93833- 6794 Sep, [facility] [id number] [place] [address] 76668- 6863 August, [facility] [id number] [place] [address] 85493- 4811 August, Neck pain M54.2 and Neuroforaminal stenosis of spine M99.89 [facility] [id number] [place] [address] 58300- 5325 August, Routine gynecological examination Z01.419 and Screening breast examination Z12.39 [facility] [address] [address]- 3506 Jul, [facility] [id number] [place] [address] 21294- 8964 Jul, [facility] [address] [address]- 6071 Jul, Neuroforaminal stenosis of spine M99.89 [facility] [id number] [place] [address] 79448- 5123 Jul, [facility] [id number] [place] [address] 97463- 2180 Jul, 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 [facility] [id number] [place] [address] 61576- 5322 Jul, [facility] [id number] [place] [address] 89827- 7212 Jul, [facility] [id number] [place] [address] 47394- 7476 Jun, Neuroforaminal stenosis of spine M99.89 [facility] [id number] [place] [address] 54798- 7776 Jun, Uterine leiomyoma, unspecified location D25.9 and Allergic reaction caused by a drug, initial encounter T78.40XA [facility] [id number] [place] [address] 41178- 1868 Jun, [facility] [id number] [place] [address] 68842- 4061 May, UTI symptoms R39.9 and Pain of right sacroiliac joint M53.3 [facility] [id number] [place] [address] 55839- 3964 May, Neuroforaminal stenosis of spine M99.89 [facility] [id number] [place] [address] 13184- 1095 May, [facility] [id number] [place] [address] 62543- 9635 May, Acute mucoid otitis media of left ear H65.112 and Acute non- recurrent maxillary sinusitis J01.00 [facility] [id number] [place] [address] 06510- 3494 May, Acute bacterial conjunctivitis of both eyes H10.33 ; Left arm pain M79.602 and Hypokalemia E87.6 [facility] [id number] [place] [address] 18447- 5598 Apr, [facility] [facility] [address] 52088- 8528 Apr, Neuroforaminal stenosis of spine M99.89 ; Neck pain M54.2 ; Chronic pain due to trauma G89.21 ; Mixed hyperlipidemia E78.2 ; Essential hypertension I10 and Hypokalemia E87.6 [facility] [id number] [place] [address] 23320- 8203 Mar, Oral candidiasis B37.0 ; Neuroforaminal stenosis of spine M99.89 ; Neck pain M54.2 and Chronic pain due to trauma G89.21 [facility] [place] [id number] [place] [address] 10172- 2853 Feb, [facility] [id number] [place] [address] 68956- 6547 Feb, [facility] [id number] [place] [address] 85184- 0673 Feb, UTI (urinary tract infection) N39.0 [facility] [id number] [place] [address] 37426- 2362 Feb, Dysuria R30.0 [facility] [id number] [place] [address] 13670- 5789 Feb, Dysuria R30.0 [facility] [id number] [place] [address] 02046- 6388 Feb, Neuroforaminal stenosis of spine M99.89 ; Neck pain M54.2 ; Essential hypertension I10 ; Chronic pain due to trauma G89.21 ; Dysuria R30.0 ; Abnormal MRI, shoulder R93.8 and Acute cystitis without hematuria N30.00 [facility] [id number] [place] [address] 28933- 2464 Jan, [facility] [id number] [place] [address] 08674- 3943 Jan, [facility] [id number] [place] [address] 30135- 3054 Jan, [facility] [id number] [place] [address] 77242- 4941 Jan, Abnormal MRI R93.8 [facility] [id number] [place] [address] 46332- 3783 29 Dec, 2015 [facility] [id number] [place] [address] 80096 -2437 15 Dec, 2015 Acute pain of left shoulder M25.512 [facility] [id number] [place] [address] 70108- 5325 09 Dec, 2015 [facility] [id number] [place] [address] 20746- 6246 08 Dec, 2015 [facility] [id number] [place] [address] 32999- 7300 07 Dec, 2015 Acute pain of left shoulder M25.512 [facility] [id number] [place] [address] 55534- 0207 Nov, [facility] [id number] [place] [address] 80920- 0709 Nov, Neuroforaminal stenosis of spine M99.89 ; Neck pain M54.2 ; Abnormal mammogram R92.8 ; Essential hypertension I10 and Chronic pain due to trauma G89.21 [facility] [id number] [place] [address] 48849- 1186 Nov, [facility] [id number] [place] [address] 57019- 3932 Oct, Acute stress disorder F43.0 [facility] [address] [facility] [id number] [address]- 7312 Oct, [facility] [address] [facility] [id number] [address]- 8778 Oct, [facility] [address] [address]- 6051 Oct, [facility] [id number] [place] [address] 60589- 5496 Sep, [facility] [address] [address]- 6688 August, [facility] [id number] [place] [address] 36916- 9561 Jul, Neuroforaminal stenosis of spine M99.89 ; Neck pain M54.2 ; Abnormal mammogram R92.8 and Essential hypertension I10 [facility] [address] [address]- 8352 Jul, [facility] [address] [address]- 2384 Jul, [facility] [address] [address]- 5449 Jul, Abnormal mammogram R92.8 [facility] [address] [address]- 9902 Jul, [facility] [id number] [address]- 7698 Jul, UTI (urinary tract infection) N39.0 [facility] [address] [address]- 7892 Jul, Dysuria R30.0 [facility] [id number] [address]- 2958 Jun, [facility] [address] [address]- 1389 31 Jun, 2015 [place] [id number] [place] [address] 64003- 6616 Jun, Hypokalemia E87.6 and Hematuria R31.9 [facility] [id number] [place] [address] 98652- 6784 Jun, Hypokalemia E87.6 [facility] [place] [id number] [place] [address] 31164- 5689 Jun, [facility] [id number] [place] [address] 40586- 6799 Jun, Hypokalemia E87.6 [facility] [id number] [place] [address] 34144- 0420 Jun, Hypokalemia E87.6 [facility] [id number] [place] [address] 18195- 8665 Jun, Neuroforaminal stenosis of spine M99.89 ; Hypokalemia E87.6 ; Neck pain M54.2 ; Essential hypertension I10 ; Mixed hyperlipidemia E78.2 and Screening breast examination Z12.39 [facility] [id number] [place] [address] 03143- 9483 08 Jun, 2015 Dysuria R30.0 ; UTI (urinary tract infection) N39.0 and Hematuria R31.9 [place] [id number] [place] [address] 31621- 9808 May, [facility] [id number] [place] [address] 21547- 7886 18 May, 2015 High risk sexual behavior Z72.51 ; Hypokalemia E87.6 ; Neuroforaminal stenosis of spine M99.89 ; Neck pain M54.2 ; Essential hypertension I10 ; Mixed hyperlipidemia E78.2 ; STD exposure Z20.2 and Concern about STD in female without diagnosis Z71.1 [facility] [id number] [place] [address] 56614- 9171 16 May, 2015 Neuroforaminal stenosis of spine M99.89 ; Neck pain M54.2 ; Hypokalemia E87.6 ; Essential hypertension I10 and Mixed hyperlipidemia E78.2 [facility] [id number] [place] [address] 99303- 9997 May, [facility] [id number] [place] [address] 70441 -5514 08 May, 2015 High risk sexual behavior Z72.51 ; STD exposure Z20.2 and Concern about STD in female without diagnosis Z71.1 [facility] [id number] [place] [address] 81940- 2032 May, [facility] [id number] [place] [address] 97615- 0097 Apr, Neuroforaminal stenosis of spine M99.89 ; Mixed hyperlipidemia E78.2 ; Essential hypertension I10 and Hypokalemia E87.6 [facility] [id number] [place] [address] 92983- 7390 Mar, [facility] [id number] [place] [address] 65022- 1566 Mar, Hypokalemia E87.6 [facility] [id number] [place] [address] 36999- 0261 Mar, Neuroforaminal stenosis of spine M99.89 ; Mixed hyperlipidemia E78.2 ; Neck pain M54.2 ; Essential hypertension I10 ; Abnormal fasting glucose R73.09 ; Hypokalemia E87.6 and Constipation K59.00 [facility] [id number] [place] [address] 10749- 3167 Feb, Neuroforaminal stenosis of spine M99.89 ; Mixed hyperlipidemia E78.2 ; Neck pain M54.2 ; Essential hypertension I10 ; Abnormal fasting glucose R73.09 ; Hypokalemia E87.6 and Constipation K59.00 [facility] [place] [id number] [place] [address] 10529- 0314 Feb, Elevated fasting blood sugar R73.01 [facility] [id number] [place] [address] 34957- 3020 Feb, Elevated fasting blood sugar R73.01 [facility] [id number] [place] [address] 74247- 1884 Feb, Hair loss L65.9 [facility] [id number] [place] [address] 24283- 6467 Feb, Sinusitis J32.9 ; Essential hypertension I10 and Hair loss L65.9 [facility] [id number] [place] [address] 94587- 0374 Jan, [facility] [id number] [place] [address] 55894- 3545 Jan, Essential hypertension I10 ; Neuroforaminal stenosis of spine M99.89 ; Neck pain M54.2 ; Mixed hyperlipidemia E78.2 and Anxiety F41.9 [facility] [place] [id number] [place] [address] 75465- 7725 Jan, [facility] [place] [id number] [place] [address] 97068- 9790 Jan, Mixed hyperlipidemia E78.2 ; Essential (primary) hypertension I10 ; Strain of muscle, fascia and tendon at neck level, subsequent encounter S16.1XXD and Tension-type headache, unspecified, not intractable G44.209 [facility] [place] [id number] [place] [address] 60908- 5662 Dec, Lumbar back pain 724.2 and Neuroforaminal stenosis of spine 724.00 [facility] [id number] [place] [address] 00490- 6247 Nov, [facility] [id number] [place] [address] 91313- 9565 Nov, Lumbar back pain 724.2 and Neuroforaminal stenosis of spine 724.00 [facility] [place] [id number] [address] Nov, Edema 782.3 ; Lumbar back pain 724.2 ; Essential hypertension, benign 401.1 ; Hyperlipemia 272.4 ; Neuroforaminal stenosis of spine 724.00 and Post-concussion headache 339.20 [facility] [id number] [address] Nov, [facility] [id number] [place] [address] 36015- 0380 Nov, [facility] [id number] [place] [address] 90248- 2058 Oct, Essential hypertension, benign 401.1 [facility] [id number] [address] Oct, Edema 782.3 ; Lumbar back pain 724.2 ; Essential hypertension, benign 401.1 ; Hyperlipemia 272.4 ; Neuroforaminal stenosis of spine 724.00 and Post-concussion headache 339.20 [facility] [id number] [address] Oct, [facility] [id number] [place] [address] 17265- 3410 Oct, Edema 782.3 [facility] [id number] [place] [address] 70730- 7488 Oct, Lumbar back pain 724.2 [facility] [id number] [place] [address] 26993- 4778 Oct, Cervicalgia 723.1 ; Lumbar back pain 724.2 and High risk medication use V58.69 [facility] [id number] [place] [address]16- 0066 Sep, [facility] [id number] [address] 5326 Sep, Lumbar strain 847.2 [facility] [id number] [address] 8[address] August, Edema 782.3 and Eustachian tube dysfunction 381.81 [facility] [id number] [place] [address] 58827- 2676 August, [facility] [id number] [place] [address] 10037- 3189 August, Eustachian tube dysfunction 381.81 [facility] [id number] [place] [address] 36734- 7149 Jul, Otalgia 388.70 and Otitis media 382.9 [facility] [id number] [place] [address] 46853- 4811 Jul, [facility] [id number] [place] [address] 87900- 7741 Jul, [facility] [id number] [place] [address] 54303- 3274 Jul, [facility] [id number] [place] [address] 18858- 2400 Jul, [facility] [id number] [place] [address] 14194- 6229 Jul, [facility] [id number] [address]- 2227 Jun, [facility] [id number] [address]- 6504 Jun, [facility] [id number] [address]- 9171 16 Jun, 2014 [facility] [id number] [place] [address] 87762- 7640 May, [facility] [id number] [address]- 3446 May, [facility] [id number] [place] [address] 38199- 3598 May, [facility] [place] [facility] [address] [id number] [place] [address]- 0872 May, [facility] [place] [facility] [address] [id number] [place] 3106 May, 2014 [facility] [place] [facility] [address] [facility] [id number] [place] [address]- 0917 May, 2014 [facility] [place] [facility] [address] [id number] [place] [address]- 4402 May, 2014 [facility] [place] [facility] [address] [id number] [place] [address]- 5936 May, 2014 [facility] [place] [facility] [address] [facility] [id number] [place] [address]- 4209 May, [facility] [place] [facility] [address] [id number] [place] [address]- 6582 May, [facility] [place] [facility] [address] [facility] [id number] [place] [address]- 8029 Apr, [facility] [place] [facility] [address] [facility] [id number] [place] [address]- 5998 Apr, [facility] [place] [facility] [address] [facility] [id number] [place] [address]- 1535 Apr, [facility] [place] [facility] [address] [facility] [id number] [place] [address]- 2079 Apr, [facility] [place] [facility] [address] [facility] [id number] [address]- 5523 Apr, [facility] [place] [facility] [address] [facility] [id number] [place] [address]- 8358 Apr, [facility] [place] [facility] [address] [facility] [id number] [place] [address]- 7344 Apr, [facility] [place] [facility] [address] [facility] [id number] [place] [address]- 0374 Apr, [facility] [place] [facility] [address] [id number] [place] [address]- 8388 Apr, [facility] [place] [facility] [address] [id number] [place] [address]- 2983 Apr, [facility] [place] [facility] [address] [id number] [place] [address]- 9607 Apr, [facility] [place] [facility] [address] [id number] [place] [address]- 5892 Apr, [facility] [place] [facility] [address] [id number] [place] [address]- 4742 Apr, [facility] [place] [facility] [address] [id number] [place] [address]- 1733 Apr, [facility] [place] [facility] [address] [id number] [place] [address]- 5095 Apr, [facility] [place] [facility] [address] [id number] [place] [address]- 1762 Mar, [facility] [place] [facility] [address] [id number] [place] [address]- 5552 Mar, [facility] [place] [facility] [address] [id number] [place] [address]- 4473 Mar, [facility] [place] [facility] [address] [id number] [place] [address]- 0120 Mar, [facility] [place] [facility] [address] [id number] [place] [address]- 3390 Feb, [facility] [place] [facility] [address] [id number] [place] [address]- 9922 Feb, [facility] [place] [facility] [address] [id number] [place] [address]- 1390 Feb, [facility] [place] [facility] [address] [id number] [place] [address]- 8436 Feb, [facility] [place] [facility] [address] [id number] [place] [address]- 5137 Jan, [facility] [place] [facility] [address] [id number] [place] [address]- 4090 Jan, [facility] [place] [facility] [address] [id number] [place] [address]- 8515 Jan, [facility] [place] [facility] [address] [id number] [place] [address]- 2258 Jan, [facility] [place] [facility] [address] [id number] [place] [address]- 0908 Jan, [facility] [place] [facility] [address] [id number] [place] [address]- 4266 Jan, [facility] [place] [facility] [address] [id number] [place] [address]- 2785 Jan, [facility] [place] [facility] [address] [id number] [place] [address]- 4568 Jan, [facility] [place] [facility] [address] [id number] [place] [address]- 2575 Dec, [facility] [place] [facility] [address] [id number] [place] [address]- 4930 29 Dec, 2013 [facility] [place] [facility] [address] [id number] [place] [address]- 5375 Dec, [facility] [place] [facility] [address] [id number] [place] [address]- 3805 Dec, [facility] [place] [facility] [address] [id number], [place] [address]- 3131 Oct, [facility] [place] [facility] [address] [id number] [place] [address]- 6962 Oct, [facility] [place] [facility] [address] [id number] [place] [address]- 0127 Oct, [facility] [place] [facility] [address] [id number] [place] [address]- 0485 Oct, [facility] [place] [facility] [address] [id number] [place] [address]- 1977 Oct, [facility] [place] [facility] [address] [id number] [place] [address]- 0804 Oct, [facility] [place] [facility] [address] [id number] [place] [address]- 1765 Oct, [facility] [place] [facility] [address] [id number] [place] [address]- 3019 Oct, [facility] [place] [facility] [address] [id number] [place] [address]- 8472 Sep, [facility] [place] [facility] [address] [id number] [place] [address]- 9089 Sep, [facility] [place] [facility] [address] [id number] [place] [address]- 1891 Sep, [facility] [place] [facility] [address] [id number] [place] [address]- 1944 Sep, [facility] [place] [facility] [address] [id number] [place] [address]- 7670 Sep, [facility] [place] [facility] [address] [id number] [place] [address]- 2097 Sep, [facility] [place] [facility] [address] [id number] [place] [address]- 2674 Sep, [facility] [place] [facility] [address] [id number] [place] [address]- 1823 Sep, [facility] [place] [facility] [address] [id number] [place] [address]- 8541 Sep, [facility] [place] [facility] [address] [id number] [place] [address]- 2714 Sep, [facility] [place] [facility] [address] [id number] [place] [address]- 4454 August, [facility] [place] [facility] [address] [id number] [place] [address]- 2722 August, [facility] [place] [facility] [address] [id number] [place] [address]- 1321 August, [facility] [address] [id number] [place] [address]- 3060 August, [facility] [address] [id number] [place] [address]- 5972 August, [facility] [address] [id number] [place] [address]- 5461 August, [facility] [address] [id number] [place] [address]- 4806 August, [facility] [address] [id number] [place] [address]- 0161 August, [facility] [address] [id number] [place] [address]- 5067 August, [facility] [address] [id number] [place] [address]- 6641 August, [facility] [address] [id number] [place] [address]- 3997 August, [facility] [place] [facility] [address] [id number] [place] [address]- 3188 August, [facility] [place] [facility] [address] [id number] [place] [address]- 1439 Jul, [facility] [place] [facility] [address] [id number] [place] [address]- 9948 Jul, [facility] [place] [facility] [address] [id number] [place] [address]- 7495 Jul, [facility] [place] [facility] [address] [id number] [place] [address]- 7724 Jul, [facility] [place] [facility] [address] [id number] [place] [address]- 7827 Jul, [facility] [place] [facility] [address] [id number] [place] [address]- 0533 Jul, [facility] [address] [id number] [place] [address]- 1484 Jun, [facility] [place] [facility] [address] [id number] [place] [address]- 0179 Jun, [facility] [place] [facility] [address] [id number] [place] [address]- 1717 May, [facility] [place] [facility] [address] [id number] [place] [address]- 5686 May, [facility] [place] [facility] [address] [id number] [place] [address]- 3452 Apr, [facility] [place] [facility] [address] [id number] [place] [address]- 5851 Apr, [facility] [place] [facility] [address] [id number] [place] [address]- 0007 Apr, [facility] [place] [facility] [address] [id number] [place] [address]- 5610 Apr, [facility] [place] [facility] [address] [id number] [place] [address]- 8956 Apr, [facility] [place] [facility] [address] [id number] [place] [address]- 0336 Apr, [facility] [place] [facility] [address] [id number], [place] [address]- 5412 Apr, [facility] [place] [facility] [address] [id number], [place] [address]- 4468 Apr, [facility] [place] [facility] [address] [id number], [place] [address]- 0009 Apr, [facility] [place] [facility] [address] [id number], [place] [address]- 7255 Apr, [facility] [place] [facility] [address] [id number] [place] [address]- 7049 Apr, [facility] [place] [facility] [address] [id number] [place] [address]- 2664 Apr, [facility] [address] [id number] [place] [address]- 9637 Apr, [facility] [place] [facility] [address] [id number] [place] [address]- 5502 Mar, [facility] [place] [facility] [address] [id number] [place] [address]- 9666 Mar, [facility] [place] [facility] [address] [id number] [place] [address]- 7449 Mar, [facility] [place] [facility] [address] [id number] [place] [address]- 8840 Mar, [facility] [place] [facility] [address] [id number] [place] [address]- 3631 Feb, [facility] [place] [facility] [address] [id number] [place] [address]- 7127 Feb, [facility] [place] [facility] [address] [id number] [place] [address]- 1538 Feb, [facility] [place] [facility] [address] [id number] [place] [address]- 2985 Feb, [facility] [place] [facility] [address] [id number] [place] [address]- 3630 14 Jan, 2013 [facility] [place] [facility] [address] [id number] [place] [address]- 3961 14 Jan, 2013 [facility] [place] [facility] [address] [id number] [place] [address]- 6062 Jan, [facility] [place] [facility] [address] [id number] [place] [address]- 6857 11 Jan, 2013 [facility] [place] [facility] [address] [id number] [place] [address]- 4536 10 Jan, 2013 [facility] [place] [facility] [address] [id number] [place] [address]- 1770 Jan, [facility] [place] [facility] [address] [id number] [place] [address]- 2258 Jan, [facility] [place] [facility] [address] [id number] [place] [address]- 1194 Jan, [facility] [place] [facility] [address] [id number] [place] 8541 Jan, [facility] [place] [facility] [address] [id number] [place] [address]- 4805 Dec, [facility] [place] [facility] [address] [id number] [place] [address]- 9694 Dec, [facility] [place] [facility] [address] [id number] [place] [address]- 5652 Dec, [facility] [place] [facility] [address] [id number] [place] [address]- 7400 Dec, [facility] [place] [facility] [address] [id number] [place] [address]- 9947 Nov, [facility] [place] [facility] [address] [id number] [place] [address]- 7480 Nov, [facility] [place] [facility] [address] [id number] [place] [address]- 4840 Nov, [facility] [place] [facility] [address] [id number] [place] [address]- 4305 Nov, [facility] [place] [facility] [address] [id number], [place] [address]- 5770 Oct, [facility] [place] [facility] [address] [id number] [place] [address]- 3228 Sep, [facility] [place] [facility] [address] [id number] [place] [address]- 7670 August, [facility] [place] [facility] [address] [id number] [place] [address]- 1058 August, [facility] [place] [facility] [address] [id number] [place] [address]- 1125 August, [facility] [address] [id number] [place] [address]- 6706 August, [facility] [address] [id number] [place] [address]- 0873 August, [facility] [address] [id number] [place] [address]- 3028 August, [facility] [address] [id number] [place] [address]- 0195 August, [facility] [address] [id number] [place] [address]- 1764 August, [facility] [address] [id number] [place] [address]- 4964 August, [facility] [address] [id number] [place] [address]- 0533 August, [facility] [address] [id number] [place] [address]- 6910 August, [facility] [address] [id number] [place] [address]- 3113 August, [facility] [address] [id number] [place] [address]- 7753 Jul, [facility] [address] [id number] [place] [address]- 8188 Jul, [facility] [address] [id number] [place] [address]- 1172 18 Jul, 2012 [facility] [address] [id number] [place] [address]- 9157 15 Jul, 2012 [facility] [address] [id number] [place] [address]- 5987 Jul, [facility] [address] [id number] [place] [address]- 9893 08 Jul, 2012 [facility] [address] [id number] [place] [address]- 8333 Jul, [facility] [place] [facility] [address] [id number] [place] [address]- 3805 Jul, [facility] [place] [facility] [address] [id number] [place] [address]- 3792 Jul, [facility] [place] [facility] [address] [id number] [place] [address]- 8115 Jul, [facility] [place] [facility] [address] [id number] [place] [address]- 4170 Jul, [facility] [place] [facility] [address] [id number] [place] [address]- 9630 Jun, [facility] [place] [facility] [address] [id number] [place] [address]- 2569 Jun, [facility] [place] [facility] [address] [id number] [place] [address]- 7530 Jun, [facility] [place] [facility] [address] [id number] [place] [address]- 5542 Jun, [facility] [place] [facility] [address] [id number] [place] [address]- 4441 May, [facility] [place] [facility] [address] [facility] [id number] [place] [address]- 6494 May, [facility] [place] [facility] [address] [id number], [place] [address]- 7219 05 May, 2012 [facility] [place] [facility] [address] [id number] [place] [address]- 1494 May, [facility] [place] [facility] [address] [id number] [place] [address]- 1816 May, [facility] [place] [facility] [address] [facility] [id number] [place] [address]- 5152 May, [facility] [place] [facility] [address] [id number], [place] [address]- 0757 31 Apr, 2012 [facility] [address] [id number] [place] [address]- 0632 31 Apr, 2012 [facility] [place] [facility] [address] [id number] [place] [address]- 3722 30 Apr, 2012 [facility] [place] [facility] [address] [id number] [place] [address]- 1897 28 Apr, 2012 [facility] [place] [facility] [address] [id number] [place] [address]- 4265 15 Mar, 2012 [facility] [address] [id number] [place] [address]- 4322 14 Mar, 2012 [facility] [place] [facility] [address] [id number] [place] [address]- 5604 Mar, [facility] [address] [facility] [id number] [place] [address]- 9134 Mar, [facility] [place] [facility] [address] [id number] [place] [address]- 3959 Mar, [facility] [place] [facility] [address] [id number] [place] [address]- 4816 Mar, [facility] [place] [facility] [address] [facility] [id number] [place] [address]- 1636 Mar, [facility] [place] [facility] [address] [id number] [place] [address]- 2535 Feb, [facility] [place] [facility] [address] [id number], [place] [address] Feb, [facility] [place] [facility] [address] [id number] [place] [address] Feb, [facility] [place] [facility] [address] [id number] [place] [address] Feb, [facility] [place] [facility] [address] [facility] [id number] [place] [address] Jan, [facility] [place] [facility] [address] [id number] [place] [address] Jan, [facility] [place] [facility] [address] [id number] [place] [address] Jan, [facility] [place] [facility] [address] [id number] [place] [address] Jan, [facility] [place] [facility] [address] [id number] [place] [address] Jan, [facility] [place] [facility] [address] [id number] [place] [address] Jan, [facility] [place] [facility] [address] [id number] [place] [address] Dec, [facility] [place] [facility] [address] [id number] [place] [address] Dec, [facility] [place] [facility] [address] [id number] [place] [address] Nov, [facility] [place] [facility] [address] [id number] [place] [address] Sep, [facility] [place] [facility] [address] [id number] [place] [address] August, [facility] [place] [facility] [address] [id number] [place] [address] August, [facility] [place] [facility] [address] [id number] [place] [address] August, [facility] [place] [facility] [address] [id number] [place] [address] August, [facility] [place] [facility] [address] [id number] [place] [address] August, [facility] [place] [facility] [address] [id number] [place] [address] Jun, [facility] [place] [facility] [address] [id number] [place] [address] Jun, [facility] [place] [facility] [address] [id number] [place] [address]- [address] Apr, [facility] [place] [facility] [address] [id number] [place] [address] Apr, [facility] [place] [facility] [address] [id number] [place] [address] Mar, [facility] [place] [facility] [address] [id number] [place] [address] Feb, [facility] [place] [facility] [address] [id number] [place] [address] Feb, [facility] [place] [facility] [address] [id number] [place] [address] Feb, [facility] [place] [facility] [address] [id number] [place] [address] 17 Jan, 2011 [facility] [place] [facility] [address] [id number][place] [address] 15 Jan, 2011 [facility] [place] [facility] [address] [id number] [place] [address] 15 Jan, 2011 [facility] [place] [facility] [address] [id number], [place] [address] 14 Jan, 2011 [facility] [place] [facility] [address] [id number], [place] [address] 15 May, 2010 [facility] [place] [facility] [address] [id number], [place] [address] Mar, [facility] [place] [facility] [address] [id number] [place] [address] Oct, [facility] [place] [facility] [address] [id number], [place] [address] Sep, [facility] [place] [facility] [address] [id number], [place] [address] 254 Mar, [facility] [place] [facility] [address] [facility] [id number] [place] [address] Jan, [facility] [address] [facility] [id number] [place] [address] Jan, [facility] [address] [facility] [id number] [place] [address] May, IMMUNIZATIONS No Known Immunizations SOCIAL HISTORY Never Assessed REASON FOR VISIT Lab (walk-in)--[facility] PLAN OF CARE VITAL SIGNS MEDICATIONS Unknown Medications RESULTS Name Result Date Reference Range SYPHILIS ([facility]) 2017-09-07 HIV ([facility]) 2017-09-07 HEP B SURFACE ANTIGEN ([facility]) 2017-09-07 HEP B ANTIBODY non-reactive HEP B ANTIBODY ([facility]) HEP B ANTIBODY ([facility]) PROCEDURES Procedure Date Ordered Result Body Site No Charge September 07, 2017 VENIPUNCT, ROUTINE* September 07, 2017 INSTRUCTIONS MEDICATIONS ADMINISTERED No Known Medications MEDICAL (GENERAL) HISTORY Type Description Date Medical History hypertension Medical History Colposcopy with loop electrode excision of the cervix was performed 06/2012, mild squamous atypia (no definite dyplasia). Performed at [facility] Dr. Joy. Medical History Acute [...]
--- OUTSIDE RECORDS SUMMARY | 2018-06-10 04:58 | XMS REPORT ---
Author Author KING BETI [facility] Address [address] [place] [address] Care Team Providers Care Underwear Cutter Name Role Phone BETI STAUFFER Unavailable PROBLEMS Type Condition ICD9-CM Code TMQ25-BB Code Onset Dates Condition Status SNOMED Code Problem Hematuria, unspecified type R31.9 Active 03516600 Problem Anxiety F41.9 Active 60182558 Problem Abnormal renal ultrasound R93.429 Active [id number] Problem Abnormal glucose R73.09 Active 658893696 Problem Chronic pain due to trauma G89.21 Active 977855294 Problem Hypokalemia E87.6 Active 06927393 Problem Neck pain M54.2 Active 95208699 Problem Neuroforaminal stenosis of spine M99.89 Active 916974711004 Problem Mixed hyperlipidemia E78.2 Active 11450247 Problem Essential hypertension I10 Active 86929859 ALLERGIES Substance Reaction Event Type Date Status Fluarix Quadrivalent rash Drug Allergy August, Active Zostavax rash Drug Allergy August, Active Macrobid rash Drug Allergy August, Active Cipro hives Drug Allergy August, Active Bactrim hives Drug Allergy August, Active Baclofen Unknown Drug Allergy August, Active Amitriptyline HCl dizziness Drug Allergy August, Active Peanut Unknown Non Drug Allergy August, Active ENCOUNTERS Encounter Location Date Diagnosis [facility] [id number] [address] Nov, [facility] [id number] [place] [address] 85056- 3248 Nov, Abnormal renal ultrasound R93.429 [facility] [id number] [address] Nov, Abnormal renal ultrasound R93.429 [facility] [address] [address] Nov, Hematuria, unspecified type R31.9 and Neuroforaminal stenosis of spine M99.89 [facility] [address] [address]- 5890 Nov, Dysuria R30.0 [facility] [address] 34583- 7602 Oct, Lateral epicondylitis, right elbow M77.11 [facility] [facility] [address] 38016- 0090 Oct, Neuroforaminal stenosis of spine M99.89 ; Visit for TB skin test Z11.1 and Essential hypertension I10 [facility] [id number] [place] [address] 48069- 4598 Oct, [facility] [address] 0[address]- 0572 Oct, Neuroforaminal stenosis of spine M99.89 [facility] [address] 32601- 9216 Oct, Visit for TB skin test Z11.1 [facility] [id number] [place] [address] 34779- 8379 Oct, Cystitis without hematuria N30.90 [facility] [id number] [place] [address] 58797- 8248 Sep, Screening breast examination Z12.39 [facility] [address] 50712- 3422 Sep, Dysuria R30.0 and Cystitis without hematuria N30.90 [place] [address] 00997- 4046 Sep, Essential hypertension I10 and Neuroforaminal stenosis of spine M99.89 [facility] [id number] [place] [address] 57696- 5888 Sep, Abnormal glucose R73.09 [facility] [id number] [place] [address] 83922- 9380 August, Lateral epicondylitis, right elbow M77.11 [facility] [id number] [place] [address] 63979- 5127 August, Screen for STD (sexually transmitted disease) Z11.3 [facility] [facility] [address] 60346- 4710 August, Neuroforaminal stenosis of spine M99.89 ; Mixed hyperlipidemia E78.2 ; Elevated fasting glucose R73.01 ; Screening mammogram, encounter for Z12.31 and Encounter for well woman exam without gynecological exam Z00.00 [facility] [id number] [place] [address] 16184- 1710 August, Neuroforaminal stenosis of spine M99.89 [facility] [id number] [place] [address] 72992- 2820 August, Essential hypertension I10 ; Hypokalemia E87.6 and Mixed hyperlipidemia E78.2 [facility] [id number] [place] [address] 07692- 1627 Jul, [facility] [id number] [place] [address] 96206- 0189 Jul, Neuroforaminal stenosis of spine M99.89 [facility] [id number] [place] [address] 65292- 7410 Jul, Lateral epicondylitis, right elbow M77.11 [facility] [id number] [place] [address] 37946- 6991 Jul, [facility] [id number] [place] [address] 98898- 6966 Jun, High ankle sprain of right lower extremity, initial encounter S93.431A [place] [address] 05844- 7808 Jun, Essential hypertension I10 [facility] [id number] [place] [address] 13304- 6352 Jun, [facility] [facility] [address] 01961- 2803 Jun, [facility] [id number] [place] [address] 36120- 0760 Jun, Neuroforaminal stenosis of spine M99.89 [place] [address] 14823- 9867 Jun, Pain of right upper extremity M79.601 and Essential hypertension I10 [place] [address] 08157- 4062 Jun, [facility] [facility] [address] 99889- 0361 Jun, Dysuria R30.0 ; Acute cystitis with hematuria N30.01 and Screen for STD (sexually transmitted disease) Z11.3 [facility] [id number] [place] [address] 92627- 5037 May, Chronic pain due to trauma G89.21 [facility] [id number] [place] [address] 53404- 3996 May, Essential hypertension I10 [place] [address] 34339- 4561 May, Neuroforaminal stenosis of spine M99.89 [facility] [id number] [place] [address] 25777- 5052 Apr, Allergic reaction, initial encounter T78.40XA [facility] [address] 24904- 7276 Apr, Low back pain, unspecified back pain laterality, unspecified chronicity, with sciatica presence unspecified M54.5 ; Acute cystitis with hematuria N30.01 ; Neuroforaminal stenosis of spine M99.89 ; Bilateral acute serous otitis media, recurrence not specified H65.03 ; Mixed hyperlipidemia E78.2 ; Essential hypertension I10 ; Immunization counseling Z71.89 and Encounter for immunization Z23 [facility] [id number] [place] [address] 16001- 4907 08 Apr, 2017 Neck pain M54.2 [facility] [id number] [place] [address] 80032- 0682 Mar, Neuroforaminal stenosis of spine M99.89 [facility] [id number] [place] [address] 88896- 0100 Mar, Pharyngitis due to other organism J02.8 [place] [address] 17470- 4697 Feb, Neuroforaminal stenosis of spine M99.89 [facility] [id number] [place] [address] 11862- 5131 Feb, UTI (urinary tract infection) N39.0 [facility] [id number] [place] [address] 44006- 8043 07 Feb, 2017 Recent urinary tract infection Z87.440 ; Neuroforaminal stenosis of spine M99.89 ; Neck pain M54.2 ; Chronic pain due to trauma G89.21 and Recurrent UTI N39.0 [facility] [id number] [place] [address] 73290- 7137 Feb, [place] [id number] [place] [address] 00656- 6555 Jan, Neuroforaminal stenosis of spine M99.89 [facility] [id number] [place] [address] 85001- 3919 28 Dec, 2016 Neuroforaminal stenosis of spine M99.89 [facility] [id number] [place] [address] 77845- 7032 18 Dec, 2016 Acute seasonal allergic rhinitis due to pollen J30.1 [facility] [id number] [place] [address] 69327- 0377 08 Dec, 2016 [facility] [id number] [place] [address] 86337- 0376 08 Dec, 2016 Acute seasonal allergic rhinitis, unspecified trigger J30.2 ; Allergic conjunctivitis of both eyes H10.13 and Dysfunction of both eustachian tubes H69.83 [facility] [id number] [place] [address] 00152- 6284 Dec, [place] [address] 48520- 9568 Dec, Nevus D22.9 [place] [address] 71108- 5178 Nov, Chronic pain due to trauma G89.21 and Neuroforaminal stenosis of spine M99.89 [facility] [id number] [place] [address] 51887- 9284 Nov, Neuroforaminal stenosis of spine M99.89 ; Essential hypertension I10 ; Mixed hyperlipidemia E78.2 ; Hypokalemia E87.6 ; Neck pain M54.2 and Nevus D22.9 [facility] [id number] [place] [address] 85149- 1880 Oct, Neuroforaminal stenosis of spine M99.89 [facility] [id number] [place] [address] 83521- 4906 Sep, Neuroforaminal stenosis of spine M99.89 [facility] [place] [id number] [place] [address] 46238- 0366 Sep, [facility] [id number] [place] [address] 48624- 7843 August, [facility] [facility] [id number] [place] [address] 51919- 5650 August, Neck pain M54.2 and Neuroforaminal stenosis of spine M99.89 [facility] [id number] [place] [address] 15347- 1810 August, Routine gynecological examination Z01.419 and Screening breast examination Z12.39 [facility] [address], [place] [address]- 07[address] Jul, [facility] [address], [place] [address]- 2591 Jul, [facility] [id number] [place] [address] 26725- 4225 Jul, Neuroforaminal stenosis of spine M99.89 [facility] [id number] [place] [address] 46181- 0476 Jul, [facility] [id number] [place] [address] 98912- 4436 Jul, 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 [facility] [id number] [place] [address] 66199- 3439 Jul, [facility] [id number] [place] [address] 94981- 2058 Jul, [facility] [id number] [place] [address] 17621- 3988 Jun, Neuroforaminal stenosis of spine M99.89 [facility] [address], [place] [address]- 8714 Jun, Uterine leiomyoma, unspecified location D25.9 and Allergic reaction caused by a drug, initial encounter T78.40XA [facility] [address], [place] [address]- 7463 Jun, [facility] [id number] [place] [address] 37261- 9293 May, UTI symptoms R39.9 and Pain of right sacroiliac joint M53.3 [facility] [address], [place] [address]- 9833 May, Neuroforaminal stenosis of spine M99.89 [facility] [id number] [place] [address] 77777- 2633 May, [facility] [id number] [place] [address] 22232- 4835 May, Acute mucoid otitis media of left ear H65.112 and Acute non- recurrent maxillary sinusitis J01.00 [place] [address] 30515- 0996 May, Acute bacterial conjunctivitis of both eyes H10.33 ; Left arm pain M79.602 and Hypokalemia E87.6 [facility] [id number] [place] [address] 20303- 8275 Apr, [place] [address] 79155- 3894 Apr, Neuroforaminal stenosis of spine M99.89 ; Neck pain M54.2 ; Chronic pain due to trauma G89.21 ; Mixed hyperlipidemia E78.2 ; Essential hypertension I10 and Hypokalemia E87.6 [facility] [id number] [place] [address] 21007- 3305 Mar, Oral candidiasis B37.0 ; Neuroforaminal stenosis of spine M99.89 ; Neck pain M54.2 and Chronic pain due to trauma G89.21 [facility] [id number] [place] [address] 28186- 7024 Feb, [facility] [id number] [place] [address] 74782- 8785 Feb, [facility] [id number] [place] [address] 99235- 8141 Feb, UTI (urinary tract infection) N39.0 [facility] [id number] [place] [address] 71622- 7003 Feb, Dysuria R30.0 [place] [address] 98913- 0512 Feb, Dysuria R30.0 [facility] [id number] [place] [address] 96140- 1382 Feb, Neuroforaminal stenosis of spine M99.89 ; Neck pain M54.2 ; Essential hypertension I10 ; Chronic pain due to trauma G89.21 ; Dysuria R30.0 ; Abnormal MRI, shoulder R93.8 and Acute cystitis without hematuria N30.00 [facility] [id number] [place] [address] 25834- 5016 Jan, [facility] [id number] [place] [address] 12885- 6967 Jan, [facility] [id number] [place] [address] 72854- 6396 Jan, [facility] [id number] [place] [address] 17700- 9902 Jan, Abnormal MRI R93.8 [facility] [id number] [place] [address] 06601- 6106 29 Dec, 2015 [facility] [id number] [place] [address] 94492 -7710 15 Dec, 2015 Acute pain of left shoulder M25.512 [facility] [id number] [place] [address] 41337- 1582 09 Dec, 2015 [facility] [id number] [place] [address] 11506- 4077 08 Dec, 2015 [facility] [id number] [place] [address] 46785- 6473 07 Dec, 2015 Acute pain of left shoulder M25.512 [facility] [id number] [place] [address] 81449- 3476 Nov, [facility] [id number] [place] [address] 37947- 9725 Nov, Neuroforaminal stenosis of spine M99.89 ; Neck pain M54.2 ; Abnormal mammogram R92.8 ; Essential hypertension I10 and Chronic pain due to trauma G89.21 [facility] [address], [place] [address]- 3851 Nov, [facility] [id number], [place] [address]- 5446 Oct, Acute stress disorder F43.0 [facility] [id number] [place] [address]- 1040 Oct, [facility] [id number], [place] [address]- 4281 Oct, [facility] [id number] [address]- 8889 Oct, [facility] [address], [place] [address]- 6681 Sep, [facility] [id number] [place] [address] 67611- 9701 August, [facility] [address], [place] [address]- 4953 Jul, Neuroforaminal stenosis of spine M99.89 ; Neck pain M54.2 ; Abnormal mammogram R92.8 and Essential hypertension I10 [facility] [address], [place] [address]- 3130 Jul, [facility] [address], [place] [address]- 0020 Jul, [facility] [address], [place] [address]- 9079 Jul, Abnormal mammogram R92.8 [facility] [address], [place] [address]- 2291 Jul, [facility] [address], [place] [address]- 5971 Jul, UTI (urinary tract infection) N39.0 [place] [address], [place] [address]- 9528 Jul, Dysuria R30.0 [facility] [address] [place] [address] 15356- 4826 Jun, [facility] [address] [place] [address] 06207- 9306 Jun, [facility] [id number] [place] [address] 18307 2543 Jun, Hypokalemia E87.6 and Hematuria R31.9 [facility] [id number] [place] [address] 16748- 0935 Jun, Hypokalemia E87.6 [facility] [id number] [place] [address] 69223- 5990 Jun, [facility] [id number] [place] [address] 40650- 7688 Jun, Hypokalemia E87.6 [facility] [id number] [place] [address] 68455- 9765 Jun, Hypokalemia E87.6 [facility] [address] [place] [address] 90423- 0159 15 Jun, 2015 Neuroforaminal stenosis of spine M99.89 ; Hypokalemia E87.6 ; Neck pain M54.2 ; Essential hypertension I10 ; Mixed hyperlipidemia E78.2 and Screening breast examination Z12.39 [facility] [address], [place] [address]- 6382 08 Jun, 2015 Dysuria R30.0 ; UTI (urinary tract infection) N39.0 and Hematuria R31.9 [facility] [address], [place] [address]- 7938 May, [facility] [address] [place] [address] 02189- 9029 18 Feb, 2016 High risk sexual behavior Z72.51 ; Hypokalemia E87.6 ; Neuroforaminal stenosis of spine M99.89 ; Neck pain M54.2 ; Essential hypertension I10 ; Mixed hyperlipidemia E78.2 ; STD exposure Z20.2 and Concern about STD in female without diagnosis Z71.1 [facility] [id number] [place] [address] 24444- 5149 16 May, 2015 Neuroforaminal stenosis of spine M99.89 ; Neck pain M54.2 ; Hypokalemia E87.6 ; Essential hypertension I10 and Mixed hyperlipidemia E78.2 [facility] [address] 60996- 8531 May, [facility] [address] 29519 -5467 08 May, 2015 High risk sexual behavior Z72.51 ; STD exposure Z20.2 and Concern about STD in female without diagnosis Z71.1 [facility] [address] 64722- 9428 May, [facility] [address] 68467- 8558 Apr, Neuroforaminal stenosis of spine M99.89 ; Mixed hyperlipidemia E78.2 ; Essential hypertension I10 and Hypokalemia E87.6 [facility] [address] 08513- 9406 Mar, [place] [address] 20056- 7164 Mar, Hypokalemia E87.6 [facility] [facility] [address] 66079- 6638 Mar, Neuroforaminal stenosis of spine M99.89 ; Mixed hyperlipidemia E78.2 ; Neck pain M54.2 ; Essential hypertension I10 ; Abnormal fasting glucose R73.09 ; Hypokalemia E87.6 and Constipation K59.00 [place] [address] [place] [address]- 0025 Feb, Neuroforaminal stenosis of spine M99.89 ; Mixed hyperlipidemia E78.2 ; Neck pain M54.2 ; Essential hypertension I10 ; Abnormal fasting glucose R73.09 ; Hypokalemia E87.6 and Constipation K59.00 [facility] [address] 53451- 3185 Feb, Elevated fasting blood sugar R73.01 [facility] [facility] [address] 38992- 1935 Feb, Elevated fasting blood sugar R73.01 [facility] [address] 70786- 9468 Feb, Hair loss L65.9 [facility] [address] 39738- 9482 Feb, Sinusitis J32.9 ; Essential hypertension I10 and Hair loss L65.9 [facility] [address] 83780- 4482 Jan, [facility] [facility] [address] 61628- 7185 Jan, Essential hypertension I10 ; Neuroforaminal stenosis of spine M99.89 ; Neck pain M54.2 ; Mixed hyperlipidemia E78.2 and Anxiety F41.9 [facility] [address] 64555- 2775 Jan, [facility] [facility] [address] 13321- 5800 Jan, Mixed hyperlipidemia E78.2 ; Essential (primary) hypertension I10 ; Strain of muscle, fascia and tendon at neck level, subsequent encounter S16.1XXD and Tension-type headache, unspecified, not intractable G44.209 [facility] [id number] [place] [address] 94518- 1800 Dec, Lumbar back pain 724.2 and Neuroforaminal stenosis of spine 724.00 [facility] [id number] [place] [address] 93754- 4144 Nov, [facility] [id number] [place] [address] 04707- 3087 Nov, Lumbar back pain 724.2 and Neuroforaminal stenosis of spine 724.00 [facility] [id number] [place] [address] 06804- 6003 Nov, Edema 782.3 ; Lumbar back pain 724.2 ; Essential hypertension, benign 401.1 ; Hyperlipemia 272.4 ; Neuroforaminal stenosis of spine 724.00 and Post-concussion headache 339.20 [facility] [id number] [place] [address] 45854- 9362 Nov, [facility] [id number] [place] [address] 49081- 8364 Nov, [facility] [id number] [place] [address] 23488- 1802 Oct, Essential hypertension, benign 401.1 [facility] [id number] [place] [address] 65764- 9301 Oct, Edema 782.3 ; Lumbar back pain 724.2 ; Essential hypertension, benign 401.1 ; Hyperlipemia 272.4 ; Neuroforaminal stenosis of spine 724.00 and Post-concussion headache 339.20 [facility] [id number] [place] [address] 58685- 9523 Oct, [facility] [id number] [place] [address] 59570- 5442 Oct, Edema 782.3 [facility] [id number] [place] [address] 77516- 9509 Oct, Lumbar back pain 724.2 [facility] [id number] [place] [address] 15277- 6805 Oct, Cervicalgia 723.1 ; Lumbar back pain 724.2 and High risk medication use V58.69 [facility] [address], [place] [address]- 6272 Sep, [facility] [address], [place] [address]- 4026 Sep, Lumbar strain 847.2 [facility] [id number] [address]- 7526 August, Edema 782.3 and Eustachian tube dysfunction 381.81 [facility] [id number] [address]- 1336 August, [facility] [id number] [place] [address] 42168- 8340 August, Eustachian tube dysfunction 381.81 [facility] [id number] [address] Jul, Otalgia 388.70 and Otitis media 382.9 [facility] [id number] [address] Jul, [facility] [address] [id number] [address] Jul, [facility] [id number] [address] 28 Jul, 2014 [facility] [id number] [address] 14 Jul, 2014 [facility] [id number] [address] 13 Jul, 2014 [facility] [id number] [place] [address] 27 Jun, 2014 [facility] [id number] [place] [address] Jun, [facility] [id number] [address] Jun, [facility] [place] [facility] [address] [id number] [place] [address] May, 2014 [facility] [place] [facility] [address] [id number] [place] [address] May, 2014 [facility] [place] [facility] [address] [id number] [place] [address] May, 2014 [facility] [place] [facility] [address] [id number] [place] [address] May, 2014 [facility] [place] [facility] [address] [id number] [place] [address] May, 2014 [facility] [place] [facility] [address] [id number] [place] [address] May, 2014 [facility] [place] [facility] [address] [facility] [id number] [place] [address]- [address] May, [facility] [place] [facility] [address] [id number] [place] [address] May, [facility] [place] [facility] [address] [id number] [place] [address] May, [facility] [place] [facility] [address] [facility] [id number] [place] [address]- [address] May, [facility] [place] [facility] [address] [facility] [id number] [place] [address] Apr, [facility] [place] [facility] [address] [id number] [place] [address] Apr, [facility] [place] [facility] [address] [id number] [place] [address] Apr, [facility] [place] [facility] [address] [facility] [id number] [place] [address]- [address] Apr, [facility] [place] [facility] [address] [facility] [id number] [place] [address] Apr, [facility] [facility] [address] [id number] [place] [address] Apr, [facility] [address] [id number] [place] [address] Apr, [facility] [address] [id number] [place] [address] 69[address] Apr, [facility] [address] [id number] [place] [address] 2007 Apr, [facility] [address] [id number] [place] [address] 0271 Apr, [facility] [address] [id number] [place] [address]- 7951 Apr, [facility] [address] [id number] [place] [address] 10[address] Apr, [facility] [address] [id number] [place] [address] 4589 Apr, [facility] [address] [id number] [place] [address] 2338 Apr, [facility] [address] [id number] [place] [address] 2136 Apr, [facility] [address] [id number] [place] [address] 5746 Mar, [facility] [address] [id number] [place] [address] 3038 Mar, [facility] [address] [id number] [place] [address]- 6610 Mar, [facility] [place] [facility] [address] [id number] [place] [address]- 3[address] Mar, [facility] [address] [id number] [place] [address]- 1742 Feb, [facility] [address] [id number] [place] [address]- 7628 Feb, [facility] [place] [facility] [address] [id number] [place] [address]- 1511 Feb, [facility] [place] [facility] [address] [id number] [place] [address]- 4708 Feb, [facility] [place] [facility] [address] [id number] [place] [address] Jan, [facility] [place] [facility] [address] [id number] [place] [address]- 0576 Jan, [facility] [place] [facility] [address] [id number] [place] [address]- 6896 Jan, [facility] [place] [facility] [address] [id number] [place] [address]- 9380 Jan, [facility] [place] [facility] [address] [id number] [place] [address]- 1883 Jan, [facility] [place] [address] [id number] [place] [address]- 9938 Jan, [facility] [place] [facility] [address] [id number] [place] [address]- 5276 Jan, [facility] [place] [address] [id number], [place] [address]- 0648 Jan, [facility] [address] [facility] [id number], [place] [address]- 8080 Dec, [facility] [address] [id number], [place] [address] 29 Dec, 2013 [facility] [place] [facility] [address] [id number] [place] [address]- 4064 Dec, [facility] [place] [facility] [address] [id number] [place] [address]- 3978 04 Dec, 2013 [facility] [address] [facility] [id number], [place] [address]- 7313 Oct, [facility] [address] [id number], [place] [address]- [address] 14 Oct, 2013 [facility] [address] [id number] [place] [address]- 8099 Oct, 2013 [facility] [address] [id number] [place] [address]- 3305 Oct, 2013 [facility] [place] [facility] [address] [id number] [place] [address]- 1695 Oct, 2013 [facility] [place] [address] [id number] [place] [address]- 8789 Oct, 2013 [facility] [address] [id number] [place] [address]- 1127 Oct, 2013 [facility] [place] [facility] [address] [id number] [place] [address]- 3405 Oct, 2013 [facility] [place] [address] [id number] [place] [address]- 4822 Sep, [facility] [address] [id number] [place] [address]- 9483 Sep, [facility] [address] [id number] [place] [address]- 3384 Sep, [facility] [address] [id number] [place] [address]- 7223 Sep, [facility] [address] [id number] [place] [address]- 2728 Sep, [facility] [address] [id number] [place] [address]- 1009 Sep, [facility] [address] [id number] [place] [address]- 1276 Sep, [facility] [address] [id number] [place] [address]- 5405 Sep, [facility] [address] [id number] [place] [address]- 0416 Sep, [facility] [address] [id number] [place] [address]- 6660 Sep, [facility] [address] [id number] [place] [address]- 6899 August, [facility] [address] [id number] [place] [address]- 5191 August, [facility] [address] [id number] [place] [address]- 2736 August, [facility] [address] [id number] [place] [address]- 3415 August, [facility] [address] [id number] [place] [address]- 9705 August, [facility] [address] [id number] [place] [address]- 3365 August, [facility] [address] [id number] [place] [address]- 1650 August, [facility] [address] [id number] [place] [address]- 5959 August, [facility] [address] [id number] [place] [address]- 6423 August, [facility] [address] [id number] [place] [address]- 4273 August, [facility] [address] [id number] [place] [address]- 5703 August, [facility] [address] [id number] [place] August, [facility] [address] [id number] [place] [address]- 3390 Jul, [facility] [address] [id number] [place] [address]- 0638 Jul, [facility] [address] [id number] [place] [address]- 3174 Jul, [facility] [address] [id number] [place] [address]- 4811 Jul, [facility] [address] [id number] [place] [address]- 5848 Jul, [facility] [address] [id number] [place] [address]- 5898 Jul, [facility] [address] [id number] [place] [address]- 9689 Jun, [facility] [address] [id number] [place] [address]- 6204 Jun, [facility] [address] [id number] [place] [address]- 0195 May, [facility] [address] [id number] [place] [address]- 5809 May, [facility] [address] [id number] [place] [address]- 0822 Apr, [facility] [address] [id number] [place] [address]- 6616 Apr, [facility] [address] [id number] [place] [address]- 3537 Apr, [facility] [address] [id number] [place] [address]- 3967 Apr, [facility] [address] [id number] [place] [address]- 9507 Apr, [facility] [address] [id number] [place] [address]- 9382 Apr, [facility] [address] [id number] [place] [address]- 6059 Apr, [facility] [address] [id number] [place] [address]- 4632 Apr, [facility] [address] [id number] [place] [address]- 7246 Apr, [facility] [address] [id number] [place] [address]- 0660 Apr, [facility] [address] [id number] [place] [address]- 0349 Apr, [facility] [address] [id number] [place] [address]- 8938 Apr, [facility] [address] [id number] [place] [address]- 2621 Apr, [facility] [address] [id number] [place] [address]- 1320 Mar, [facility] [address] [id number] [place] [address]- 4009 Mar, [facility] [address] [id number] [place] [address]- 0195 Mar, [facility] [address] [id number] [place] [address]- 7430 Mar, [facility] [address] [id number] [place] [address]- 8476 Feb, [facility] [address] [facility] [id number] [place] [address]- 0056 Feb, [facility] [address] [id number] [place] [address]- 2036 Feb, [facility] [address] [id number] [place] [address]- 6683 08 Feb, 2013 [facility] [address] [id number] [place] [address]- 7723 14 Jan, 2013 [facility] [address] [id number] [place] [address]- 1156 14 Jan, 2013 [facility] [address] [id number] [place] [address]- 4994 Jan, [facility] [address] [id number] [place] [address]- 6129 Jan, [facility] [address] [id number] [place] [address]- 8096 Jan, [facility] [address] [id number] [place] [address]- 1002 Jan, [facility] [address] [id number] [place] [address]- 5552 Jan, [facility] [address] [id number] [place] [address]- 7134 Jan, [facility] [address] [id number] [place] [address]- 0102 Jan, [facility] [address] [id number] [place] [address]- 8245 26 Dec, 2012 [facility] [address] [id number] [place] [address]- 5125 16 Dec, 2012 [facility] [address] [id number] [place] [address]- 1817 16 Dec, 2012 [facility] [address] [id number] [place] [address]- 5771 13 Dec, 2012 [facility] [address] [id number] [place] [address]- 7337 Nov, [facility] [address] [id number] [place] [address]- 0790 Nov, [facility] [address] [id number] [place] [address]- 4396 14 Nov, 2012 [facility] [address] [id number] [place] [address]- 4827 05 Nov, 2012 [facility] [address] [id number] [place] [address]- 6735 18 Oct, 2012 [facility] [address] [id number] [place] [address]- 3094 Sep, [facility] [address] [id number] [place] [address]- 5213 August, [facility] [address] [id number] [place] [address]67 August, [facility] [address] [id number] [place] [address]- 2208 August, [facility] [address] [id number] [place] [address]- 6564 August, [facility] [address] [id number] [place] [address]- 1889 August, [facility] [address] [id number] [place] [address]- 1641 August, [facility] [address] [id number] [place] [address]- 5227 August, [facility] [address] [id number] [place] [address]- 5310 August, [facility] [address] [id number] [place] [address]- 6373 August, [facility] [address] [id number] [place] [address]- 8706 August, [facility] [address] [id number] [place] [address]- 9404 August, [facility] [address] [id number] [place] [address]- 6451 August, [facility] [address] [id number] [place] [address]- 6773 Jul, [facility] [place] [facility] [address] [id number] [place] [address]- 6153 Jul, [facility] [address] [id number] [place] [address]- 8968 Jul, [facility] [place] [facility] [address] [id number] [place] [address]- 4591 15 Jul, 2012 [facility] [address] [id number] [place] [address]- 7357 Jul, [facility] [address] [id number] [place] [address]- 8416 Jul, [facility] [address] [id number] [place] [address]- 3434 Jul, [facility] [address] [id number] [place] [address]- 3145 Jul, [facility] [address] [id number] [place] [address]- 6181 Jul, [facility] [address] [id number] [place] [address]- 6435 Jul, [facility] [address] [id number] [place] [address]- 5930 Jul, [facility] [address] [id number] [place] [address]- 3393 Jun, [facility] [address] [id number] [place] [address]- 5057 Jun, [facility] [address] [id number] [place] [address]- 9745 Jun, [facility] [address] [id number] [place] [address]- 7366 Jun, [facility] [address] [id number] [place] [address]- 1782 28 May, 2012 [facility] [address] [id number] [place] [address]- 2970 14 May, 2012 [facility] [address] [id number] [place] [address]- 7486 05 May, 2012 [facility] [address] [id number] [place] [address]- 2362 May, [facility] [place] [facility] [address] [id number] [place] [address]- 5838 May, [facility] [place] [facility] [address] [id number] [place] [address]- 2646 May, [facility] [place] [facility] [address] [facility] [id number] [place] [address]- 4016 Apr, [facility] [place] [facility] [address] [id number] [place] [address]- 2622 Apr, [facility] [place] [facility] [address] [id number] [place] [address]- 3869 Apr, [facility] [place] [facility] [address] [id number] [place] [address]- 6975 Apr, [facility] [place] [facility] [address] [id number] [place] [address]- 3676 15 Mar, 2012 [facility] [place] [facility] [address] [id number] [place] [address]- 4076 14 Mar, 2012 [facility] [place] [facility] [address] [id number] [place] [address]- 3865 Mar, [facility] [place] [facility] [address] [id number] [place] [address]- 0650 Mar, [facility] [place] [facility] [address] [id number] [place] [address]- 5674 Mar, [facility] [place] [facility] [address] [id number] [place] [address]- 2507 Mar, [facility] [place] [facility] [address] [id number] [place] [address]- 8831 Mar, [facility] [place] [facility] [address] [id number] [place] [address]- 3950 Feb, [facility] [place] [facility] [address] [id number] [place] [address]- 1285 Feb, [facility] [place] [facility] [address] [id number] [place] [address]- 6127 Feb, [facility] [address] [id number] [place] [address]- 3746 Feb, [facility] [place] [facility] [address] [id number] [place] [address]- 0945 Jan, [facility] [address] [id number] [place] [address]- 4297 Jan, [facility] [place] [facility] [address] [id number] [place] [address]- 3039 Jan, [facility] [address] [id number] [place] [address]- 6475 Jan, [facility] [place] [facility] [address] [id number] [place] [address]- 2125 Jan, [facility] [place] [facility] [address] [id number] [place] [address]- 7588 Jan, [facility] [place] [facility] [address] [id number] [place] [address]- 0165 Dec, [facility] [place] [facility] [address] [id number] [place] [address]- 2799 Dec, [facility] [place] [facility] [address] [id number] [place] [address]- 1703 Nov, [facility] [place] [facility] [address] [id number] [place] [address]- 7222 Sep, [facility] [place] [facility] [address] [id number] [place] [address]- 0058 August, [facility] [place] [facility] [address] [id number] [place] [address]- 8461 August, [facility] [place] [facility] [address] [id number] [place] [address]- 1642 August, [facility] [place] [facility] [address] [id number] [place] [address]- 1716 August, [facility] [place] [facility] [address] [id number] [place] [address]- 6701 August, [facility] [place] [facility] [address] [id number] [place] [address]- 8706 Jun, [facility] [place] [facility] [address] [id number] [place] [address]- 6476 Jun, [facility] [place] [facility] [address] [id number] [place] [address]- 3466 Apr, [facility] [place] [facility] [address] [id number] [place] [address]- 1412 Apr, [facility] [place] [facility] [address] [id number] [place] [address]- 8306 Mar, [facility] [place] [facility] [address] [id number] [place] [address]- 2093 Feb, [facility] [place] [facility] [address] [id number] [place] [address]- 8539 14 Feb, 2011 [facility] [place] [facility] [address] [id number] [place] [address]- 8244 Feb, [facility] [place] [facility] [address] [facility] [id number], [place] [address]- 8984 17 Jan, 2011 [facility] [place] [facility] [address] [facility] [id number], [place] [address]- 6537 15 Jan, 2011 [facility] [place] [facility] [address] [id number][place] [address] 15 Jan, 2011 [facility] [place] [facility] [address] [id number] [place] [address] 14 Jan, 2011 [facility] [place] [facility] [address] [id number][place] [address] 15 May, 2010 [facility] [place] [facility] [address] [facility] [id number], [place] [address] 04 Mar, 2010 [facility] [place] [facility] [address] [id number], [place] [address] Oct, [facility] [address] [facility] [id number], [place] [address] Sep, [facility] [address] [facility] [id number], [place] [address] Mar, [facility] [address] [facility] [id number][place] [address] Jan, [place] [address] [facility] [id number][place] [address] Jan, [place] [address] [facility] [id number], [place] [address] May, IMMUNIZATIONS No Known Immunizations SOCIAL HISTORY Never Assessed REASON FOR VISIT Annual physical (female)-----DBennettRN PLAN OF CARE Activity Details Follow Up 4 Weeks Reason:pain Future/Pending Procedure ROUTINE VENIPUNCTURE VITAL SIGNS Height 62 in 2017-09-01 Weight 180 lbs 2017-09-01 Temperature 98.1 degrees Fahrenheit 2017-09-01 Heart Rate 90 bpm 2017-09-01 Respiratory Rate 20 2017-09-01 BMI 32.92 kg/m2 2017-09-01 Blood pressure systolic 122 mmHg 2017-09-01 Blood pressure diastolic 70 mmHg 2017-09-01 MEDICATIONS Medication Instructions Dosage Frequency Start Date End Date Duration Status Cyclobenzaprine HCl 10 mg Orally Three times a day 1 tablet as needed 8h Active Naproxen 500 mg Orally every 12 [...] 4 weeks 1 tablet as needed Jul, Sep, 28 days Active Klor-Con 10 10 MEQ Orally twice a day 1 tablet 12h 7 Sep, 2017 30 days Active Triamterene-HCTZ 37.5-25 MG Orally Once a day 1 tablet in the morning 24h 30 Active Meclizine HCl 25 MG Orally Once a day 1 tablet as needed 24h Active RESULTS No Results PROCEDURES Procedure Date Ordered Result Body Site Hemoglobin Test Send Out 0 dollar September 01, 2017 VENIPUNCT, ROUTINE* September 01, 2017 INSTRUCTIONS MEDICATIONS ADMINISTERED No Known Medications MEDICAL (GENERAL) HISTORY Type Description Date Medical History hypertension Medical History Colposcopy with loop electrode excision of the cervix was performed 06/2012, mild squamous atypia (no definite dyplasia). Performed at [facility] Dr. Joy. Medical History Acute suppurative otitis [...]
--- OUTSIDE RECORDS SUMMARY | 2018-06-10 04:59 | XMS REPORT ---
Author Author BETI STAUFFER [facility] Address [address] [place] [address] Care Team Providers Care Spareribs Trimmer Name Role Phone BETI STAUFFER Unavailable PROBLEMS Type Condition ICD9-CM Code MMX16-BK Code Onset Dates Condition Status SNOMED Code Problem Abnormal glucose R73.09 Active 616437213 Problem Anxiety F41.9 Active 54507851 Problem Hematuria, unspecified type R31.9 Active 26023321 Problem Chronic pain due to trauma G89.21 Active 783211030 Problem Hypokalemia E87.6 Active 87522501 Problem Neck pain M54.2 Active 88085682 Problem Neuroforaminal stenosis of spine M99.89 Active 680169555804 Problem Mixed hyperlipidemia E78.2 Active 53309263 Problem Essential hypertension I10 Active 54340209 ALLERGIES Substance Reaction Event Type Date Status Fluarix Quadrivalent rash Drug Allergy August, Active Zostavax rash Drug Allergy August, Active Macrobid rash Drug Allergy August, Active Cipro hives Drug Allergy August, Active Bactrim hives Drug Allergy August, Active Baclofen Unknown Drug Allergy August, Active Amitriptyline HCl dizziness Drug Allergy August, Active Peanut Unknown Non Drug Allergy August, Active ENCOUNTERS Encounter Location Date Diagnosis [facility] [id number] [place] [address] 00667- 0591 Nov, Hematuria, unspecified type R31.9 and Neuroforaminal stenosis of spine M99.89 [facility] [id number] [place] [address] 97840- 5232 Nov, Dysuria R30.0 [facility] [id number] [address] Oct, Lateral epicondylitis, right elbow M77.11 [facility] [id number] [place] [address] 39262- 9992 Oct, Neuroforaminal stenosis of spine M99.89 ; Visit for TB skin test Z11.1 and Essential hypertension I10 [place] [facility] [id number] [place] [address] 25562- 6490 Oct, [place] [id number] [place] [address] 88553- 6083 Oct, Neuroforaminal stenosis of spine M99.89 [facility] [id number] [place] [address] 81309- 9849 10 Oct, 2017 Visit for TB skin test Z11.1 [facility] [id number] [place] [address] 61371- 9961 05 Oct, 2017 Cystitis without hematuria N30.90 [facility] [facility] [id number] [place] [address] 63349- 9333 Sep, Screening breast examination Z12.39 [place] [facility] [id number] [place] [address] 68705- 2820 Sep, Dysuria R30.0 and Cystitis without hematuria N30.90 [place] [id number] [place] [address] 70408- 7862 14 Sep, 2017 Essential hypertension I10 and Neuroforaminal stenosis of spine M99.89 [facility] [place] [id number] [place] [address] 95865- 4208 Sep, Abnormal glucose R73.09 [place] [id number] [place] [address] 09659- 4061 August, Lateral epicondylitis, right elbow M77.11 [place] [id number] [place] [address] 49754- 4369 August, Screen for STD (sexually transmitted disease) Z11.3 [place] [id number] [place] [address] 81610- 7415 August, Neuroforaminal stenosis of spine M99.89 ; Mixed hyperlipidemia E78.2 ; Elevated fasting glucose R73.01 ; Screening mammogram, encounter for Z12.31 and Encounter for well woman exam without gynecological exam Z00.00 [facility] [id number] [place] [address] 15512- 2748 August, Neuroforaminal stenosis of spine M99.89 [place] [id number] [place] [address] 27687- 8855 August, Essential hypertension I10 ; Hypokalemia E87.6 and Mixed hyperlipidemia E78.2 [place] [address] 91215- 0118 Jul, [place] [address] 81130- 9863 Jul, Neuroforaminal stenosis of spine M99.89 [place] [address] 51720- 8529 Jul, Lateral epicondylitis, right elbow M77.11 [place] [address] 66652- 4594 Jul, [place] [address] 73115- 4635 Jun, High ankle sprain of right lower extremity, initial encounter S93.431A [place] [id number] [place] [address] 11944- 1848 Jun, Essential hypertension I10 [facility] [id number] [place] [address] 16117- 1341 Jun, [facility] [address] 00552- 4062 Jun, [place] [id number] [place] [address] 64537- 0927 Jun, Neuroforaminal stenosis of spine M99.89 [place] [id number] [place] [address] 22343- 1572 Jun, Pain of right upper extremity M79.601 and Essential hypertension I10 [place] [address] 40741- 4528 Jun, [place] [address] 13418- 6868 Jun, Dysuria R30.0 ; Acute cystitis with hematuria N30.01 and Screen for STD (sexually transmitted disease) Z11.3 [place] [address] 93565- 3501 May, Chronic pain due to trauma G89.21 [place] [address] 08354- 1837 May, Essential hypertension I10 [address] 36317- 1070 May, Neuroforaminal stenosis of spine M99.89 [place] [address] 31682- 0891 Apr, Allergic reaction, initial encounter T78.40XA [place] [id number] [place] [address] 45363- 8718 Apr, Low back pain, unspecified back pain laterality, unspecified chronicity, with sciatica presence unspecified M54.5 ; Acute cystitis with hematuria N30.01 ; Neuroforaminal stenosis of spine M99.89 ; Bilateral acute serous otitis media, recurrence not specified H65.03 ; Mixed hyperlipidemia E78.2 ; Essential hypertension I10 ; Immunization counseling Z71.89 and Encounter for immunization Z23 [place] [address] 04964- 3987 Apr, Neck pain M54.[address] 38344- 8088 Mar, Neuroforaminal stenosis of spine M99.89 [place] [address] [place] [address] 2817 Mar, Pharyngitis due to other organism J02.8 [facility] [id number] [place] [address] 97906- 6996 Feb, Neuroforaminal stenosis of spine M99.89 [facility] [id number] [place] [address] 26585- 3394 Feb, UTI (urinary tract infection) N39.0 [facility] [id number] [place] [address] 36933- 4803 Feb, Recent urinary tract infection Z87.440 ; Neuroforaminal stenosis of spine M99.89 ; Neck pain M54.2 ; Chronic pain due to trauma G89.21 and Recurrent UTI N39.0 [facility] [id number] [place] [address] 76894- 8360 Feb, [facility] [id number] [place] [address] 18374- 6273 Jan, Neuroforaminal stenosis of spine M99.89 [facility] [id number] [place] [address] 37832- 0367 Dec, Neuroforaminal stenosis of spine M99.89 [facility] [id number] [place] [address] 38435- 2195 18 Dec, 2016 Acute seasonal allergic rhinitis due to pollen J30.1 [facility] [id number] [place] [address] 85626- 3911 Dec, [facility] [id number] [place] [address] 12454- 3104 Dec, Acute seasonal allergic rhinitis, unspecified trigger J30.2 ; Allergic conjunctivitis of both eyes H10.13 and Dysfunction of both eustachian tubes H69.83 [facility] [id number] [place] [address] 47187- 3549 Dec, [facility] [address] [place] [address]- 5571 Dec, Nevus D22.9 [facility] [id number] [place] [address] 93733- 2273 Nov, Chronic pain due to trauma G89.21 and Neuroforaminal stenosis of spine M99.89 [facility] [id number] [place] [address] 07839- 0643 Nov, Neuroforaminal stenosis of spine M99.89 ; Essential hypertension I10 ; Mixed hyperlipidemia E78.2 ; Hypokalemia E87.6 ; Neck pain M54.2 and Nevus D22.9 [facility] [id number] [place] [address] 18661- 8042 Oct, Neuroforaminal stenosis of spine M99.89 [facility] [id number] [place] [address] 50471- 5321 Sep, Neuroforaminal stenosis of spine M99.89 [facility] [id number] [place] [address] 44575- 1757 Sep, [facility] [id number] [place] [address] 12194- 1926 August, [facility] [id number] [place] [address] 02475- 0483 August, Neck pain M54.2 and Neuroforaminal stenosis of spine M99.89 [facility] [id number] [place] [address] 48091- 4593 August, Routine gynecological examination Z01.419 and Screening breast examination Z12.39 [facility] [id number] [place] [address] 93545- 8731 Jul, [facility] [id number] [place] [address] 47265- 4606 Jul, [facility] [id number] [place] [address] 20364- 7047 Jul, Neuroforaminal stenosis of spine M99.89 [facility] [id number] [place] [address] 37156- 5012 Jul, [facility] [id number] [place] [address] 03628- 2163 Jul, 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 [facility] [id number] [place] [address] 50202- 7846 Jul, [facility] [id number] [place] [address] 38671- 8819 Jul, [facility] [id number] [place] [address] 05178- 7007 Jun, Neuroforaminal stenosis of spine M99.89 [facility] [id number] [place] [address] 82030- 4206 Jun, Uterine leiomyoma, unspecified location D25.9 and Allergic reaction caused by a drug, initial encounter T78.40XA [facility] [id number] [place] [address] 03695- 8302 Jun, [facility] [id number] [place] [address] 70597- 3907 May, UTI symptoms R39.9 and Pain of right sacroiliac joint M53.3 [place] [id number] [place] [address] 70031- 7647 May, Neuroforaminal stenosis of spine M99.89 [facility] [address] [place] [address] 81184- 4871 May, [facility] [id number] [place] [address] 63079- 5904 May, Acute mucoid otitis media of left ear H65.112 and Acute non- recurrent maxillary sinusitis J01.00 [facility] [address] [place] [address] 58080- 4614 May, Acute bacterial conjunctivitis of both eyes H10.33 ; Left arm pain M79.602 and Hypokalemia E87.6 [place] [id number] [place] [address] 76214- 1113 Apr, [place] [id number] [place] [address] 15244- 2308 Apr, Neuroforaminal stenosis of spine M99.89 ; Neck pain M54.2 ; Chronic pain due to trauma G89.21 ; Mixed hyperlipidemia E78.2 ; Essential hypertension I10 and Hypokalemia E87.6 [place] [address] [place] [address] 62486- 8506 Mar, Oral candidiasis B37.0 ; Neuroforaminal stenosis of spine M99.89 ; Neck pain M54.2 and Chronic pain due to trauma G89.21 [place] [id number] [place] [address] 18006- 8106 Feb, [place] [id number] [place] [address] 99552- 1624 Feb, [place] [id number] [place] [address] 02100- 4572 Feb, UTI (urinary tract infection) N39.0 [place] [id number] [place] [address] 89675- 6502 Feb, Dysuria R30.0 [place] [id number] [place] [address] 87881- 3098 Feb, Dysuria R30.0 [facility] [id number] [place] [address] 61677- 8045 Feb, Neuroforaminal stenosis of spine M99.89 ; Neck pain M54.2 ; Essential hypertension I10 ; Chronic pain due to trauma G89.21 ; Dysuria R30.0 ; Abnormal MRI, shoulder R93.8 and Acute cystitis without hematuria N30.00 [place] [id number] [place] [address] 41982- 6254 Jan, [facility] [id number] [place] [address] 64419- 3506 Jan, [facility] [id number] [place] [address] 80364- 6530 Jan, [facility] [id number] [place] [address] 36888- 2589 Jan, Abnormal MRI R93.8 [facility] [id number] [place] [address] 82600- 0394 29 Dec, 2015 [facility] [id number] [place] [address] 94862 -1905 15 Dec, 2015 Acute pain of left shoulder M25.512 [facility] [id number] [place] [address] 71776- 0318 09 Dec, 2015 [facility] [id number] [place] [address] 53376- 5045 08 Dec, 2015 [facility] [id number] [place] [address] 43648- 0710 07 Dec, 2015 Acute pain of left shoulder M25.512 [facility] [id number] [place] [address] 98563- 8528 Nov, [facility] [id number] [place] [address] 30347- 9868 16 Nov, 2015 Neuroforaminal stenosis of spine M99.89 ; Neck pain M54.2 ; Abnormal mammogram R92.8 ; Essential hypertension I10 and Chronic pain due to trauma G89.21 [facility] [id number] [place] [address] 93652- 2183 Nov, [facility] [id number] [place] [address] 77012- 3274 Oct, Acute stress disorder F43.0 [facility] [id number] [place] [address] 93766- 0492 Oct, [facility] [id number] [address]- 8448 Oct, [facility] [address] [place] [address]- 7722 Oct, [facility] [id number] [address]- 4878 Sep, [facility] [address] [address]- 0260 August, [facility] [id number] [address]- 6215 Jul, Neuroforaminal stenosis of spine M99.89 ; Neck pain M54.2 ; Abnormal mammogram R92.8 and Essential hypertension I10 [facility] [address], [place] [address]- 4988 Jul, [facility] [address] [address]- 8820 Jul, [facility] [address] [place] [address]- 9560 Jul, Abnormal mammogram R92.8 [facility] [address] [address]- 2722 Jul, [facility] [address] [address]- 1582 Jul, UTI (urinary tract infection) N39.0 [facility] [address] [address]- 8092 Jul, Dysuria R30.0 [facility] [address] [place] [address]- 8397 Jun, [facility] [id number] [address]- 7314 Jun, [facility] [address] [address]- 1546 Jun, Hypokalemia E87.6 and Hematuria R31.9 [place] [address] [place] [address] 68455- 3520 Jun, Hypokalemia E87.6 [place] [id number] [place] [address] 23216- 9351 Jun, [place] [id number] [place] [address] 65235- 8504 Jun, Hypokalemia E87.6 [place] [id number] [place] [address] 18587- 7147 Jun, Hypokalemia E87.6 [place] [id number] [place] [address] 43818- 2047 Jun, Neuroforaminal stenosis of spine M99.89 ; Hypokalemia E87.6 ; Neck pain M54.2 ; Essential hypertension I10 ; Mixed hyperlipidemia E78.2 and Screening breast examination Z12.39 [place] [id number] [place] [address] 35172- 6209 08 Jun, 2015 Dysuria R30.0 ; UTI (urinary tract infection) N39.0 and Hematuria R31.9 [place] [id number] [place] [address] 36853- 1651 May, [place] [id number] [place] [address] 70457- 2354 May, High risk sexual behavior Z72.51 ; Hypokalemia E87.6 ; Neuroforaminal stenosis of spine M99.89 ; Neck pain M54.2 ; Essential hypertension I10 ; Mixed hyperlipidemia E78.2 ; STD exposure Z20.2 and Concern about STD in female without diagnosis Z71.1 [place] [id number] [place] [address] 59579- 7325 16 May, 2015 Neuroforaminal stenosis of spine M99.89 ; Neck pain M54.2 ; Hypokalemia E87.6 ; Essential hypertension I10 and Mixed hyperlipidemia E78.2 [facility] [address] [place] [address] 56080- 4796 11 May, 2015 [facility] [id number] [place] [address] 30043 -1688 08 May, 2015 High risk sexual behavior Z72.51 ; STD exposure Z20.2 and Concern about STD in female without diagnosis Z71.1 [place] [id number] [place] [address] 04218- 8054 05 May, 2015 [facility] [id number] [place] [address] 78216- 9492 Apr, Neuroforaminal stenosis of spine M99.89 ; Mixed hyperlipidemia E78.2 ; Essential hypertension I10 and Hypokalemia E87.6 [place] [id number] [place] [address] 50760- 1473 Mar, [facility] [id number] [place] [address] 05834- 3807 Mar, Hypokalemia E87.6 [place] [id number] [place] [address] 54490- 2221 Mar, Neuroforaminal stenosis of spine M99.89 ; Mixed hyperlipidemia E78.2 ; Neck pain M54.2 ; Essential hypertension I10 ; Abnormal fasting glucose R73.09 ; Hypokalemia E87.6 and Constipation K59.00 [place] [id number] [place] [address] 53115- 9220 Feb, Neuroforaminal stenosis of spine M99.89 ; Mixed hyperlipidemia E78.2 ; Neck pain M54.2 ; Essential hypertension I10 ; Abnormal fasting glucose R73.09 ; Hypokalemia E87.6 and Constipation K59.00 [place] [id number] [place] [address] 46662- 3094 Feb, Elevated fasting blood sugar R73.01 [place] [id number] [place] [address] 38578- 6164 Feb, Elevated fasting blood sugar R73.01 [place] [address] 72889- 4219 Feb, Hair loss L65.9 [place] [id number] [place] [address] 60705- 5265 Feb, Sinusitis J32.9 ; Essential hypertension I10 and Hair loss L65.9 [place] [address] 96538- 6297 Jan, [place] [address] 97510- 1829 Jan, Essential hypertension I10 ; Neuroforaminal stenosis of spine M99.89 ; Neck pain M54.2 ; Mixed hyperlipidemia E78.2 and Anxiety F41.9 [place] [address] 84072- 3073 Jan, [place] [address] 12528- 7298 Jan, Mixed hyperlipidemia E78.2 ; Essential (primary) hypertension I10 ; Strain of muscle, fascia and tendon at neck level, subsequent encounter S16.1XXD and Tension-type headache, unspecified, not intractable G44.209 [place] [id number] [place] [address] 29436- 8346 Dec, Lumbar back pain 724.2 and Neuroforaminal stenosis of spine 724.00 [place] [id number] [place] [address] 56948- 2117 Nov, [place] [address] 86081- 8552 Nov, Lumbar back pain 724.2 and Neuroforaminal stenosis of spine 724.00 [place] [id number] [place] [address] 30739- 1804 Nov, Edema 782.3 ; Lumbar back pain 724.2 ; Essential hypertension, benign 401.1 ; Hyperlipemia 272.4 ; Neuroforaminal stenosis of spine 724.00 and Post-concussion headache 339.20 [facility] [address] [place] [address] 19505- 2316 Nov, [facility] [id number] [place] [address] 92721- 5041 Nov, [facility] [id number] [place] [address] 27613- 6818 Oct, Essential hypertension, benign 401.1 [facility] [id number] [place] [address] [phone] Oct, Edema 782.3 ; Lumbar back pain 724.2 ; Essential hypertension, benign 401.1 ; Hyperlipemia 272.4 ; Neuroforaminal stenosis of spine 724.00 and Post-concussion headache 339.20 [place] [id number] [place] [address] [phone] Oct, [facility] [id number] [place] [address] [phone] Oct, Edema 782.3 [facility] [id number] [place] [address] [phone]- [phone] Oct, Lumbar back pain 724.2 [place] [id number] [place] [address] [phone] Oct, Cervicalgia 723.1 ; Lumbar back pain 724.2 and High risk medication use V58.69 [facility] [address] [id number] [place] [address]2673- 1198 Sep, [place] [address] [place] [id number] [place] [address] 64432- 9392 Sep, Lumbar strain 847.2 [facility] [id number] [place] [address] 14884- 8022 August, Edema 782.3 and Eustachian tube dysfunction 381.81 [facility] [address] [facility] [id number], [place] [address] August, [facility] [id number] [place] [address] 39[address] August, Eustachian tube dysfunction 381.81 [facility] [id number] [place] [address] 2546 Jul, Otalgia 388.70 and Otitis media 382.9 [facility] [id number] [place] [address] 9405 Jul, [facility] [id number] [place] [address], [place] [address]- 9328 Jul, [facility] [address], [place] [address] 8177 Jul, [facility] [id number] [place] [address] 02274- 3633 Jul, [facility] [address], [place] [address]- 4226 Jul, [facility] [address], [place] [address] 1152 Jun, [facility] [address], [place] [address]- 4961 Jun, [facility] [address], [place] [address]- 2715 Jun, [facility] [address], [place] [address]- 5985 May, [facility] [address], [place] [address]- 0936 May, [facility] [address], [place] [address]- 2546 May, [facility] [address], [place] [address]- 6846 May, 2014 [facility] [place] [facility] [address] [id number] [place] [address]- 1142 May, [facility] [place] [facility] [address] [id number] [place] [address]- 0286 May, 2014 [facility] [place] [facility] [address] [id number] [place] [address]- 4311 May, [facility] [place] [facility] [address] [id number] [place] [address]- 1989 May, 2014 [facility] [place] [facility] [address] [id number] [place] [address]- 5298 May, [facility] [place] [facility] [address] [id number] [place] [address]- 6018 May, [facility] [place] [facility] [address] [id number] [place] [address]- 0523 Apr, [facility] [place] [facility] [address] [id number] [place] [address]- 9334 Apr, [facility] [place] [facility] [address] [id number] [place] [address]- 1139 Apr, [facility] [place] [facility] [address] [facility] [id number] [place] [address]- 3152 Apr, [facility] [place] [facility] [address] [id number] [place] [address]- 0595 Apr, [facility] [place] [facility] [address] [id number] [place] [address]- 6060 Apr, [facility] [place] [facility] [address] [id number] [place] [address]- 2108 Apr, [facility] [place] [facility] [address] [id number] [place] [address]- 6725 Apr, [facility] [place] [facility] [address] [facility] [id number] [place] [address]- 9218 Apr, [facility] [place] [facility] [address] [id number] [place] [address]- 9222 Apr, [facility] [place] [facility] [address] [id number] [place] [address]- 4246 Apr, [facility] [place] [facility] [address] [id number] [place] [address]- 2865 Apr, [facility] [place] [facility] [address] [id number] [place] [address]- 8944 Apr, [facility] [place] [facility] [address] [id number] [place] [address]- 9567 Apr, [facility] [place] [facility] [address] [id number] [place] [address]- 8893 Apr, [facility] [place] [facility] [address] [id number] [place] [address]- 2750 Mar, [facility] [place] [facility] [address] [id number] [place] [address]- 5148 Mar, [facility] [place] [facility] [address] [id number] [place] [address]- 0260 Mar, [facility] [place] [facility] [address] [id number] [place] [address]- 6816 Mar, [facility] [place] [facility] [address] [id number] [place] [address]- 1744 Feb, [facility] [place] [facility] [address] [id number] [place] [address]- 9048 Feb, [facility] [place] [facility] [address] [id number] [place] [address]- 5600 Feb, [facility] [place] [facility] [address] [id number] [place] [address]- 3944 Feb, [facility] [place] [facility] [address] [id number] [place] [address]- 1346 Jan, [facility] [place] [facility] [address] [id number] [place] [address]- 7712 Jan, [facility] [place] [facility] [address] [id number] [place] [address]- 8004 Jan, [facility] [place] [facility] [address] [id number] [place] [address]- 6900 Jan, [facility] [place] [facility] [address] [id number] [place] [address]- 0579 Jan, [facility] [place] [facility] [address] [id number] [place] [address]- 1285 Jan, [facility] [place] [facility] [address] [id number] [place] [address]- 7933 Jan, [facility] [place] [facility] [address] [id number] [place] [address]- 5286 Jan, [facility] [place] [facility] [address] [id number] [place] [address]- 9050 Dec, [facility] [place] [facility] [address] [id number] [place] [address]- 3050 Dec, [facility] [place] [facility] [address] [id number] [place] [address]- 5045 Dec, [facility] [place] [facility] [address] [id number] [place] [address]- 7246 Dec, [facility] [place] [facility] [address] [id number] [place] [address]- 2257 Oct, [facility] [place] [facility] [address] [id number], [place] [address]- 5222 Oct, [facility] [place] [facility] [address] [id number] [place] [address]- 8870 Oct, [facility] [place] [facility] [address] [id number] [place] [address]- 3737 Oct, [facility] [place] [facility] [address] [id number] [place] [address]- 9561 Oct, [facility] [place] [facility] [address] [id number] [place] [address]- 4035 Oct, [facility] [place] [facility] [address] [id number] [place] [address]- 4608 Oct, [facility] [place] [facility] [address] [id number] [place] [address]- 6300 Oct, [facility] [place] [facility] [address] [id number] [place] [address]- 2541 Sep, [facility] [place] [facility] [address] [id number] [place] [address]- 4203 Sep, [facility] [place] [facility] [address] [id number] [place] [address]- 1176 Sep, [facility] [place] [facility] [address] [id number] [place] [address]- 1188 Sep, [facility] [place] [facility] [address] [id number] [place] [address]- 0546 Sep, [facility] [place] [facility] [address] [id number] [place] [address]- 4651 Sep, [facility] [place] [facility] [address] [id number] [place] [address]- 2271 Sep, [facility] [place] [facility] [address] [id number] [place] [address]- 1117 Sep, [facility] [place] [facility] [address] [id number] [place] [address]- 5806 Sep, [facility] [place] [facility] [address] [id number] [place] [address]- 7368 Sep, [facility] [place] [facility] [address] [id number] [place] [address]- 7868 August, [facility] [place] [facility] [address] [id number] [place] [address]- 3563 August, [facility] [place] [facility] [address] [id number] [place] [address]- 2871 August, [facility] [place] [facility] [address] [id number] [place] [address]- 6012 August, [facility] [place] [facility] [address] [id number] [place] [address]- 4795 August, [facility] [place] [facility] [address] [id number] [place] [address]- 5355 August, [facility] [place] [facility] [address] [id number] [place] [address]- 4199 August, [facility] [place] [facility] [address] [id number] [place] [address]- 1947 August, [facility] [place] [facility] [address] [id number] [place] [address]- 5472 August, [facility] [place] [facility] [address] [id number] [place] [address]- 2801 August, [facility] [place] [facility] [address] [id number] [place] [address]- 2618 August, [facility] [place] [facility] [address] [id number] [place] [address]- 0545 August, [facility] [place] [facility] [address] [id number] [place] [address]- 0550 Jul, [facility] [place] [facility] [address] [id number] [place] [address]- 8186 Jul, [facility] [place] [facility] [address] [id number] [place] [address]- 5314 Jul, [facility] [place] [facility] [address] [id number] [place] [address]- 8260 Jul, [facility] [place] [facility] [address] [id number] [place] [address]- 7446 Jul, [facility] [place] [facility] [address] [id number] [place] [address]- 6533 Jul, [facility] [place] [facility] [address] [id number] [place] [address]- 6234 Jun, [facility] [place] [facility] [address] [id number] [place] [address]- 5453 Jun, [facility] [place] [facility] [address] [id number] [place] [address]- 5011 May, [facility] [place] [facility] [address] [id number] [place] [address]- 5818 May, [facility] [place] [facility] [address] [id number] [place] [address]- 5184 Apr, [facility] [place] [facility] [address] [id number] [place] [address]- 9660 Apr, [facility] [place] [facility] [address] [id number] [place] [address]- 3449 Apr, [facility] [place] [facility] [address] [id number] [place] [address]- 4954 Apr, [facility] [place] [facility] [address] [id number] [place] [address]- 0650 Apr, [facility] [place] [facility] [address] [id number] [place] [address]- 8978 Apr, [facility] [place] [facility] [address] [id number] [place] [address]- 4012 Apr, [facility] [place] [facility] [address] [id number], [place] [address]- 6477 Apr, [facility] [place] [facility] [address] [id number], [place] [address]- 2190 Apr, [facility] [place] [facility] [address] [id number] [place] [address]- 4946 Apr, [facility] [place] [facility] [address] [id number] [place] [address]- 5762 Apr, [facility] [place] [facility] [address] [id number] [place] [address]- 5362 Apr, [facility] [place] [facility] [address] [id number] [place] [address]- 5229 Apr, [facility] [address] [id number] [place] [address]- 6180 Mar, [facility] [place] [facility] [address] [id number] [place] [address]- 8707 Mar, [facility] [address] [id number] [place] [address]- 9212 Mar, [facility] [place] [facility] [address] [id number] [place] [address]- 8123 Mar, [facility] [address] [id number] [place] [address]- 7246 Feb, [facility] [place] [facility] [address] [id number] [place] [address]- 4065 Feb, [facility] [place] [facility] [address] [id number] [place] [address]- 4618 Feb, [facility] [address] [id number] [place] [address]- 9072 Feb, [facility] [place] [facility] [address] [id number] [place] [address]- 3191 14 Jan, 2013 [facility] [address] [id number] [place] [address]- 4688 14 Jan, 2013 [facility] [place] [facility] [address] [id number] [place] [address]- 8053 Jan, [facility] [place] [facility] [address] [id number] [place] [address]- 6643 11 Jan, 2013 [facility] [place] [facility] [address] [id number] [place] [address]- 3308 10 Jan, 2013 [facility] [place] [facility] [address] [id number] [place] [address]- 6546 10 Jan, 2013 [facility] [place] [facility] [address] [id number] [place] [address]- 6354 Jan, [facility] [address] [id number] [place] [address]- 7471 Jan, [facility] [place] [facility] [address] [id number] [place] [address]- 6389 Jan, [facility] [place] [facility] [address] [id number] [place] [address]- 7560 Dec, [facility] [place] [facility] [address] [id number] [place] [address]- 5902 Dec, [facility] [place] [facility] [address] [id number] [place] [address]- 8828 Dec, [facility] [place] [facility] [address] [id number] [place] [address]- 8215 Dec, [facility] [place] [facility] [address] [id number] [place] [address]- 8038 Nov, [facility] [place] [facility] [address] [id number] [place] [address]- 6921 Nov, [facility] [place] [facility] [address] [id number] [place] [address]- 2281 Nov, [facility] [place] [facility] [address] [id number], [place] [address]- 9656 Nov, [facility] [place] [facility] [address] [id number] [place] [address]- 5450 Oct, [facility] [place] [facility] [address] [id number], [place] [address]- 4466 Sep, [facility] [place] [facility] [address] [id number] [place] [address]- 0038 August, [facility] [place] [facility] [address] [id number] [place] [address]- 4311 August, [facility] [place] [facility] [address] [id number] 6163 August, [facility] [place] [facility] [address] [id number], [place] [address]- 5167 August, [facility] [address] [id number] [place] [address]- 0274 August, [facility] [address] [id number] [place] [address]- 3032 August, [facility] [address] [id number] [place] [address]- 7865 August, [facility] [address] [id number] [place] [address]- 0088 August, [facility] [address] [id number] [place] [address]- 8695 August, [facility] [address] [id number] [place] [address]- 2943 August, [facility] [address] [id number] [place] [address]- 5609 August, [facility] [address] [id number] [place] [address]- 4960 August, [facility] [address] [id number] [place] [address]- 9900 Jul, [facility] [address] [id number] [place] [address]- 3802 Jul, [facility] [address] [id number] [place] [address]- 5069 18 Jul, 2012 [facility] [address] [id number] [place] [address]- 3221 15 Jul, 2012 [facility] [address] [id number] [place] [address]- 8806 Jul, [facility] [address] [id number] [place] [address]- 1758 08 Jul, 2012 [facility] [address] [id number] [place] [address]- 3421 04 Jul, 2012 [facility] [place] [facility] [address] [id number] [place] [address]- 5875 Jul, [facility] [place] [facility] [address] [id number] [place] 9032 Jul, [facility] [place] [facility] [address] [id number] [place] 0623 Jul, [facility] [place] [facility] [address] [id number] [place] [address]- 7640 Jul, [facility] [place] [facility] [address] [id number] [place] [address]- 8671 Jun, [facility] [place] [facility] [address] [id number] [place] [address]- 5089 Jun, [facility] [place] [facility] [address] [facility] [id number] [place] [address]- 8825 Jun, [facility] [place] [facility] [address] [id number] [place] [address]- 0180 Jun, [facility] [place] [facility] [address] [id number] [place] [address]- 1452 May, [facility] [place] [facility] [address] [facility] [id number] [place] [address]- 6807 May, [facility] [place] [facility] [address] [facility] [id number] [place] [address]- 6149 May, [facility] [place] [facility] [address] [id number] [place] [address]- 8258 May, [facility] [place] [facility] [address] [id number] [place] [address]- 8503 May, [facility] [place] [facility] [address] [id number] [place] 2526 May, [facility] [place] [facility] [address] [id number] [place] [address]- 0190 Apr, [facility] [place] [facility] [address] [id number], [place] [address]- 6327 31 Apr, 2012 [facility] [place] [facility] [address] [id number] [place] [address]- 5789 30 Apr, 2012 [facility] [place] [facility] [address] [id number] [place] [address]- 5898 28 Apr, 2012 [facility] [place] [facility] [address] [id number] [place] [address]- 9832 15 Mar, 2012 [facility] [place] [facility] [address] [id number] [place] [address]- 7408 14 Mar, 2012 [facility] [place] [facility] [address] [id number] [place] [address]- 1848 14 Mar, 2012 [facility] [place] [facility] [address] [id number] [place] [address]- 1373 14 Mar, 2012 [facility] [place] [facility] [address] [id number] [place] [address]- 9918 Mar, [facility] [place] [facility] [address] [id number] [place] [address]- 0254 06 Mar, 2012 [facility] [place] [facility] [address] [id number] [place] [address]- 7649 Mar, [facility] [place] [facility] [address] [id number] [place] [address]- 8494 Feb, [facility] [place] [facility] [address] [id number], [place] [address]- 6641 Feb, [facility] [place] [facility] [address] [id number], [place] [address]- 2655 Feb, [facility] [place] [facility] [address] [id number] [place] [address]- 5732 Feb, [facility] [place] [facility] [address] [id number] [place] [address]- 6836 Jan, [facility] [place] [facility] [address] [id number] [place] [address] Jan, [facility] [place] [facility] [address] [id number] [place] [address] 10 Jan, 2012 [facility] [place] [facility] [address] [id number] [place] [address] Jan, [facility] [place] [facility] [address] [id number] [place] [address] Jan, [facility] [place] [facility] [address] [id number] [place] [address] Jan, [facility] [place] [facility] [address] [id number] [place] [address] Dec, [facility] [place] [facility] [address] [id number] [place] [address] Dec, [facility] [place] [facility] [address] [id number] [place] [address] Nov, [facility] [place] [facility] [address] [id number] [place] [address] Sep, [facility] [place] [facility] [address] [id number] [place] [address] August, [facility] [place] [facility] [address] [id number] [place] [address] August, [facility] [place] [facility] [address] [id number] [place] [address] August, [facility] [place] [facility] [address] [id number] [place] [address] August, [facility] [place] [facility] [address] [id number] [place] [address] August, [facility] [place] [facility] [address] [id number] [place] [address] Jun, [facility] [place] [facility] [address] [id number] [place] [address] Jun, [facility] [place] [facility] [address] [id number] [place] [address] Apr, [facility] [place] [facility] [address] [id number] [place] [address] Apr, [facility] [place] [facility] [address] [id number] [place] [address] Mar, [facility] [place] [facility] [address] [id number] [place] [address] Feb, [facility] [place] [facility] [address] [id number] [place] [address] 14 Feb, 2011 [facility] [place] [facility] [address] [id number] [place] [address] 14 Feb, 2011 [facility] [place] [facility] [address] [id number] [place] [address] 17 Jan, 2011 [facility] [place] [facility] [address] [id number] [place] [address] 15 Jan, 2011 [facility] [place] [facility] [address] [id number], [place] [address] 15 Jan, 2011 [facility] [place] [facility] [address] [id number] [place] [address] 14 Jan, 2011 [facility] [place] [facility] [address] [id number], [place] [address] 15 May, 2010 [facility] [place] [facility] [address] [id number], [place] [address] Mar, [facility] [place] [facility] [address] [id number], [place] [address] Oct, [facility] [place] [facility] [address] [id number] [place] [address] 14 Sep, 2009 [facility] [place] [facility] [address] [id number], [place] [address] Mar, [facility] [place] [facility] [address] [id number] [place] [address] 27 Jan, 2009 [facility] [place] [facility] [address] [facility] [id number] [place] [address] Jan, [facility] [address] [facility] [id number] [place] [address] May, IMMUNIZATIONS No Known Immunizations SOCIAL HISTORY Never Assessed REASON FOR VISIT Blood Pressure, Pain management, would like her potassium checked-Patrizia PLAN OF CARE Activity Details Follow Up 3 Months Reason:HTN VITAL SIGNS Height 62 in 2017-08-15 Weight 181.2 lbs 2017-08-15 Temperature 97.7 degrees Fahrenheit 2017-08-15 Heart Rate 82 bpm 2017-08-15 Respiratory Rate 20 2017-08-15 Oximetry 95 % 2017-08-15 BMI 33.14 kg/m2 2017-08-15 Blood pressure systolic 132 mmHg 2017-08-15 Blood pressure diastolic 80 mmHg 2017-08-15 MEDICATIONS Medication Instructions Dosage Frequency Start Date End Date Duration Status Pravastatin Sodium 20 MG TAKE ONE TABLET BY MOUTH AT BEDTIME 30 Active Klor-Con 10 10 MEQ Orally twice a day 1 tablet 12h 7 Sep, 2017 30 days Active Hydrocodone-Acetaminophen 5-325 MG Orally 3 -4 times a day prn. must last 4 weeks 1 tablet as needed Jul, Active Naproxen 500 MG Orally every 12 hrs 1 tablet with food or milk as needed 12h Active potassium 1 tab Not-Taking RESULTS No Results PROCEDURES No Known procedures INSTRUCTIONS MEDICATIONS ADMINISTERED No Known Medications MEDICAL (GENERAL) HISTORY Type Description Date Medical History hypertension Medical History Colposcopy with loop electrode excision of the cervix was performed 06/2012, mild squamous atypia (no definite dyplasia). Performed at [facility] Dr. Joy. Medical History Acute [...]
--- OUTSIDE RECORDS SUMMARY | 2018-06-10 04:59 | XMS REPORT ---
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 Name Role Phone BETI STAUFFER Unavailable PROBLEMS Type Condition ICD9-CM Code HPI44-YL Code Onset Dates Condition Status SNOMED Code Problem Abnormal glucose R73.09 Active 889878811 Problem Anxiety F41.9 Active 42915418 Problem Hematuria, unspecified type R31.9 Active 07798400 Problem Chronic pain due to trauma G89.21 Active 530321696 Problem Hypokalemia E87.6 Active 43036878 Problem Neck pain M54.2 Active 64817089 Problem Neuroforaminal stenosis of spine M99.89 Active 665698199284 Problem Mixed hyperlipidemia E78.2 Active 08953591 Problem Essential hypertension I10 Active 10494757 ALLERGIES No Information ENCOUNTERS Encounter Location Date Diagnosis [facility] [id number] [place] [address] 61640- 1183 Nov, Hematuria, unspecified type R31.9 and Neuroforaminal stenosis of spine M99.89 [facility] [id number] [place] [address] 98320- 5905 Nov, Dysuria R30.0 [facility] [id number] [place] [address] 76783- 2179 Oct, Lateral epicondylitis, right elbow M77.11 [facility] [id number] [place] [address] 08968- 8530 Oct, Neuroforaminal stenosis of spine M99.89 ; Visit for TB skin test Z11.1 and Essential hypertension I10 [facility] [id number] [place] [address] 00665- 2725 Oct, [place] [address] [place] [address] 0279 12 Oct, 2017 Neuroforaminal stenosis of spine M99.89 [facility] [facility] [address] 70992- 4889 10 Oct, 2017 Visit for TB skin test Z11.1 [facility] [facility] [id number] [place] [address] 23788- 7632 05 Oct, 2017 Cystitis without hematuria N30.90 [facility] [facility] [address] 33370- 0220 28 Sep, 2017 Screening breast examination Z12.39 [facility] [facility] [address] 07361- 9955 26 Sep, 2017 Dysuria R30.0 and Cystitis without hematuria N30.90 [facility] [id number] [place] [address] 33570- 7372 14 Sep, 2017 Essential hypertension I10 and Neuroforaminal stenosis of spine M99.89 [facility] [id number] [place] [address] 88292- 5653 Sep, Abnormal glucose R73.09 [place] [address] 98862- 4412 August, Lateral epicondylitis, right elbow M77.11 [place] [id number] [place] [address] 56262- 6185 August, Screen for STD (sexually transmitted disease) Z11.3 [facility] [id number] [place] [address] 77228- 6829 August, Neuroforaminal stenosis of spine M99.89 ; Mixed hyperlipidemia E78.2 ; Elevated fasting glucose R73.01 ; Screening mammogram, encounter for Z12.31 and Encounter for well woman exam without gynecological exam Z00.00 [facility] [id number] [place] [address] 13839- 7648 August, Neuroforaminal stenosis of spine M99.89 [facility] [id number] [place] [address] 83141- 4863 August, Essential hypertension I10 ; Hypokalemia E87.6 and Mixed hyperlipidemia E78.2 [facility] [id number] [place] [address] 35371- 8366 Jul, [facility] [id number] [place] [address] 04655- 1116 Jul, Neuroforaminal stenosis of spine M99.89 [facility] [id number] [place] [address] 01004- 4486 Jul, Lateral epicondylitis, right elbow M77.11 [facility] [place] [id number] [place] [address] 58071- 9086 Jul, [facility] [address] 99131- 7936 Jun, High ankle sprain of right lower extremity, initial encounter S93.431A [facility] [id number] [place] [address] 34477- 4408 Jun, Essential hypertension I10 [facility] [id number] [place] [address] 69346 2546 Jun, [facility] [id number] [place] [address] 34245- 4288 Jun, [facility] [id number] [place] [address] 36403 2548 Jun, Neuroforaminal stenosis of spine M99.89 [facility] [id number] [place] [address] 85874- 2548 Jun, Pain of right upper extremity M79.601 and Essential hypertension I10 [facility] [id number] [place] [address] 07114- 2546 Jun, [facility] [id number] [place] [address] 89566- 2542 Jun, Dysuria R30.0 ; Acute cystitis with hematuria N30.01 and Screen for STD (sexually transmitted disease) Z11.3 [facility] [address] 19444- 9488 May, Chronic pain due to trauma G89.21 [facility] [address] 79425- 1854 May, Essential hypertension I10 [place] [address] 60497- 2832 May, Neuroforaminal stenosis of spine M99.89 [place] [address] 46126- 5208 Apr, Allergic reaction, initial encounter T78.40XA [facility] [address] 86853- 7476 Apr, Low back pain, unspecified back pain laterality, unspecified chronicity, with sciatica presence unspecified M54.5 ; Acute cystitis with hematuria N30.01 ; Neuroforaminal stenosis of spine M99.89 ; Bilateral acute serous otitis media, recurrence not specified H65.03 ; Mixed hyperlipidemia E78.2 ; Essential hypertension I10 ; Immunization counseling Z71.89 and Encounter for immunization Z23 [facility] [address] 00156- 9243 Apr, Neck pain M54.2 [place] [id number] [place] [address] 53646- 8737 Mar, Neuroforaminal stenosis of spine M99.89 [facility] [id number] [place] [address] 35670- 3482 Mar, Pharyngitis due to other organism J02.8 [facility] [id number] [place] [address] 17167- 6229 Feb, Neuroforaminal stenosis of spine M99.89 [place] [address] 21681- 9601 08 Feb, 2017 UTI (urinary tract infection) N39.0 [facility] [id number] [place] [address] 13447- 4025 07 Feb, 2017 Recent urinary tract infection Z87.440 ; Neuroforaminal stenosis of spine M99.89 ; Neck pain M54.2 ; Chronic pain due to trauma G89.21 and Recurrent UTI N39.0 [facility] [id number] [place] [address] 54606- 9290 Feb, [facility] [id number] [place] [address] 05492- 9229 Jan, Neuroforaminal stenosis of spine M99.89 [facility] [id number] [place] [address] 72011- 1555 Dec, Neuroforaminal stenosis of spine M99.89 [facility] [id number] [place] [address] 32070- 8172 Dec, Acute seasonal allergic rhinitis due to pollen J30.1 [facility] [id number] [place] [address] 19426- 3614 Dec, [facility] [id number] [place] [address] 48155- 8299 Dec, Acute seasonal allergic rhinitis, unspecified trigger J30.2 ; Allergic conjunctivitis of both eyes H10.13 and Dysfunction of both eustachian tubes H69.83 [facility] [id number] [place] [address] 43163- 0466 Dec, [facility] [id number] [place] [address] 53270- 0732 Dec, Nevus D22.9 [facility] [id number] [place] [address] 59193- 2586 Nov, Chronic pain due to trauma G89.21 and Neuroforaminal stenosis of spine M99.89 [facility] [id number] [place] [address] 57201- 3824 Nov, Neuroforaminal stenosis of spine M99.89 ; Essential hypertension I10 ; Mixed hyperlipidemia E78.2 ; Hypokalemia E87.6 ; Neck pain M54.2 and Nevus D22.9 [facility] [address] [id number] [address] 6708 Oct, Neuroforaminal stenosis of spine M99.89 [facility] [address] [facility] [id number] [place] [address] 33684- 7155 Sep, Neuroforaminal stenosis of spine M99.89 [facility] [id number] [place] [address] 50749- 6584 Sep, [facility] [id number] [place] [address] 38437- 1459 August, [facility] [id number] [place] [address] 03990- 7731 August, Neck pain M54.2 and Neuroforaminal stenosis of spine M99.89 [facility] [id number] [place] [address] 29699- 6597 August, Routine gynecological examination Z01.419 and Screening breast examination Z12.39 [facility] [address] [address]- 8397 Jul, [facility] [address] [address]- 5245 Jul, [facility] [id number] [place] [address] 54327- 2548 Jul, Neuroforaminal stenosis of spine M99.89 [facility] [address] [address]- 4128 Jul, [facility] [id number] [address]- 0949 Jul, 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 [facility] [address] [address]- 0878 Jul, [facility] [id number] [place] [address] 49616- 2363 Jul, [facility] [id number] [place] [address] 79502- 7204 Jun, Neuroforaminal stenosis of spine M99.89 [place] [id number] [place] [address] 03017- 9701 Jun, Uterine leiomyoma, unspecified location D25.9 and Allergic reaction caused by a drug, initial encounter T78.40XA [place] [id number] [place] [address] 49565- 1416 Jun, [place] [id number] [place] [address] 54834- 0766 May, UTI symptoms R39.9 and Pain of right sacroiliac joint M53.3 [place] [id number] [place] [address] 60642- 3602 May, Neuroforaminal stenosis of spine M99.89 [place] [id number] [place] [address] 67103- 0552 May, [place] [id number] [place] [address] 12745- 4155 May, Acute mucoid otitis media of left ear H65.112 and Acute non- recurrent maxillary sinusitis J01.00 [place] [id number] [place] [address] 29775- 1068 May, Acute bacterial conjunctivitis of both eyes H10.33 ; Left arm pain M79.602 and Hypokalemia E87.6 [place] [id number] [place] [address] 85853- 0481 Apr, [place] [id number] [place] [address] 89677- 0112 Apr, Neuroforaminal stenosis of spine M99.89 ; Neck pain M54.2 ; Chronic pain due to trauma G89.21 ; Mixed hyperlipidemia E78.2 ; Essential hypertension I10 and Hypokalemia E87.6 [facility] [id number] [place] [address] 78017- 5313 Mar, Oral candidiasis B37.0 ; Neuroforaminal stenosis of spine M99.89 ; Neck pain M54.2 and Chronic pain due to trauma G89.21 [facility] [id number] [place] [address] 53829- 0055 Feb, [facility] [id number] [place] [address] 85019- 8291 Feb, [facility] [id number] [place] [address] 33386- 9275 Feb, UTI (urinary tract infection) N39.0 [facility] [id number] [place] [address] 10380- 6705 Feb, Dysuria R30.0 [facility] [id number] [place] [address] 41241- 7594 Feb, Dysuria R30.0 [facility] [id number] [place] [address] 25801- 5285 Feb, Neuroforaminal stenosis of spine M99.89 ; Neck pain M54.2 ; Essential hypertension I10 ; Chronic pain due to trauma G89.21 ; Dysuria R30.0 ; Abnormal MRI, shoulder R93.8 and Acute cystitis without hematuria N30.00 [facility] [address] [address]- 5957 Jan, [facility] [id number] [place] [address] 89929- 3473 Jan, [facility] [id number] [place] [address] 98081- 5037 Jan, [facility] [id number] [place] [address] 79450- 4362 Jan, Abnormal MRI R93.8 [facility] [id number] [place] [address] 91932- 8820 29 Dec, 2015 [facility] [id number] [place] [address] 73443 -0098 15 Dec, 2015 Acute pain of left shoulder M25.512 [facility] [id number] [place] [address] 32718- 6017 09 Dec, 2015 [facility] [id number] [place] [address] 48299- 4633 08 Dec, 2015 [facility] [id number] [place] [address] 11380- 7067 07 Dec, 2015 Acute pain of left shoulder M25.512 [facility] [id number] [place] [address] 28406- 8801 Nov, [facility] [id number] [place] [address] 96625- 1413 Nov, Neuroforaminal stenosis of spine M99.89 ; Neck pain M54.2 ; Abnormal mammogram R92.8 ; Essential hypertension I10 and Chronic pain due to trauma G89.21 [facility] [address] [address]- 5515 Nov, [facility] [address] [address]- 3668 Oct, Acute stress disorder F43.0 [facility] [id number] [place] [address] 19007- 2683 Oct, [facility] [id number] [place] [address] 96599- 8906 Oct, [facility] [address] [address]- 7361 Oct, [facility] [id number] [place] [address] 90224- 8325 Sep, [facility] [id number] [place] [address] 21697- 0787 August, [facility] [id number] [place] [address] 61099- 0306 Jul, Neuroforaminal stenosis of spine M99.89 ; Neck pain M54.2 ; Abnormal mammogram R92.8 and Essential hypertension I10 [facility] [id number] [place] [address] 47060- 2240 Jul, [facility] [id number] [place] [address] 53183- 8566 Jul, [facility] [id number] [place] [address] 59505- 1878 Jul, Abnormal mammogram R92.8 [facility] [id number] [place] [address] 37346- 1104 Jul, [facility] [id number] [place] [address] 45519- 0975 Jul, UTI (urinary tract infection) N39.0 [facility] [id number] [place] [address] 99701- 4963 Jul, Dysuria R30.0 [facility] [id number] [place] [address] 84522- 5344 Jun, [facility] [id number] [place] [address] 27265- 8372 Jun, [facility] [id number] [place] [address] 29185- 7377 Jun, Hypokalemia E87.6 and Hematuria R31.9 [facility] [id number] [place] [address] 42214- 4267 Jun, Hypokalemia E87.6 [facility] [id number] [place] [address] 21515- 9415 Jun, [facility] [id number] [place] [address] 00046- 4482 Jun, Hypokalemia E87.6 [place] [id number] [place] [address] 94353- 7202 Jun, Hypokalemia E87.6 [place] [id number] [place] [address] 76344- 1802 Jun, Neuroforaminal stenosis of spine M99.89 ; Hypokalemia E87.6 ; Neck pain M54.2 ; Essential hypertension I10 ; Mixed hyperlipidemia E78.2 and Screening breast examination Z12.39 [place] [address] 49755- 7737 Jun, Dysuria R30.0 ; UTI (urinary tract infection) N39.0 and Hematuria R31.9 [place] [address] 14763- 4478 May, [place] [id number] [place] [address] 74271- 6389 May, High risk sexual behavior Z72.51 ; Hypokalemia E87.6 ; Neuroforaminal stenosis of spine M99.89 ; Neck pain M54.2 ; Essential hypertension I10 ; Mixed hyperlipidemia E78.2 ; STD exposure Z20.2 and Concern about STD in female without diagnosis Z71.1 [place] [id number] [place] [address] 38023- 5595 16 May, 2015 Neuroforaminal stenosis of spine M99.89 ; Neck pain M54.2 ; Hypokalemia E87.6 ; Essential hypertension I10 and Mixed hyperlipidemia E78.2 [place] [id number] [place] [address] 91103- 3135 May, [facility] [id number] [place] [address] 98540 -5032 08 May, 2015 High risk sexual behavior Z72.51 ; STD exposure Z20.2 and Concern about STD in female without diagnosis Z71.1 [place] [id number] [place] [address] 39846- 3175 May, [place] [id number] [place] [address] 81269- 7408 Apr, Neuroforaminal stenosis of spine M99.89 ; Mixed hyperlipidemia E78.2 ; Essential hypertension I10 and Hypokalemia E87.6 [place] [id number] [place] [address] 80614- 7033 Mar, [place] [id number] [place] [address] 04194- 5120 Mar, Hypokalemia E87.6 [place] [id number] [place] [address] 53890- 9880 Mar, Neuroforaminal stenosis of spine M99.89 ; Mixed hyperlipidemia E78.2 ; Neck pain M54.2 ; Essential hypertension I10 ; Abnormal fasting glucose R73.09 ; Hypokalemia E87.6 and Constipation K59.00 [place] [id number] [place] [address] 61279- 4883 Feb, Neuroforaminal stenosis of spine M99.89 ; Mixed hyperlipidemia E78.2 ; Neck pain M54.2 ; Essential hypertension I10 ; Abnormal fasting glucose R73.09 ; Hypokalemia E87.6 and Constipation K59.00 [place] [id number] [place] [address] 22644- 7678 Feb, Elevated fasting blood sugar R73.01 [place] [id number] [place] [address] 20094- 9537 Feb, Elevated fasting blood sugar R73.01 [place] [id number] [place] [address] 29608- 2677 Feb, Hair loss L65.9 [place] [id number] [place] [address] 13104- 5561 Feb, Sinusitis J32.9 ; Essential hypertension I10 and Hair loss L65.9 [place] [address] 59356- 1479 Jan, [place] [address] 03819- 4088 Jan, Essential hypertension I10 ; Neuroforaminal stenosis of spine M99.89 ; Neck pain M54.2 ; Mixed hyperlipidemia E78.2 and Anxiety F41.9 [place] [address] 63728- 5844 Jan, [place] [address] 61336- 0433 Jan, Mixed hyperlipidemia E78.2 ; Essential (primary) hypertension I10 ; Strain of muscle, fascia and tendon at neck level, subsequent encounter S16.1XXD and Tension-type headache, unspecified, not intractable G44.209 [place] [address] 04316- 7412 Dec, Lumbar back pain 724.2 and Neuroforaminal stenosis of spine 724.00 [place] [address] 88748- 6975 Nov, [place] [address] 21935- 8979 Nov, Lumbar back pain 724.2 and Neuroforaminal stenosis of spine 724.00 [place] [address] 96417- 7468 Nov, Edema 782.3 ; Lumbar back pain 724.2 ; Essential hypertension, benign 401.1 ; Hyperlipemia 272.4 ; Neuroforaminal stenosis of spine 724.00 and Post-concussion headache 339.20 [place] [address] [address] Nov, [place] [address] [address] Nov, [facility] [id number] [address] Oct, Essential hypertension, benign 401.1 [facility] [address] [place] [id number] [place] [address] Oct, Edema 782.3 ; Lumbar back pain 724.2 ; Essential hypertension, benign 401.1 ; Hyperlipemia 272.4 ; Neuroforaminal stenosis of spine 724.00 and Post-concussion headache 339.20 [facility] [address] [place] [id number] [place] [address]- [address] Oct, [facility] [address] [place] [id number] [place] [address]- 5368 Oct, Edema 782.3 [facility] [address] [place] [id number] [place] [address]- 1505 Oct, Lumbar back pain 724.2 [place] [address] [place] [id number] [place] [address]- 2806 Oct, Cervicalgia 723.1 ; Lumbar back pain 724.2 and High risk medication use V58.69 [facility] [address] [place] [id number] [place] [address]- [address]36 Sep, [place] [address] [place] [id number] [place] [address] 24[address]- 4228 Sep, Lumbar strain 847.2 [facility] [address] [place] [id number] [place] [address] 279[address]- 7253 August, Edema 782.3 and Eustachian tube dysfunction 381.81 [facility] [address] [place] [id number] [place] [address]- [address]46 August, [facility] [address] [place] [id number] [place] [address] 86[address]- 5532 August, Eustachian tube dysfunction 381.81 [facility] [address] [place] [id number] [place] [address] 14166- 1683 Jul, Otalgia 388.70 and Otitis media 382.9 [facility] [id number] [address] Jul, [facility] [address] [facility] [id number] [place] [address] Jul, [facility] [address] [place] [id number] [place] [address], [place] [address]- [address] Jul, [facility] [address] [facility] [id number] [place] [address], [place] [address]- [address]673 14 Jul, 2014 [facility] [id number] [place] [address], [place] [address]- [address] Jul, [facility] [id number] [address] Jun, [facility] [address] [place] [id number] [place] [address], [place] [address]- [address] Jun, [facility] [address] [place] [id number] [address] 16 Jun, 2014 [facility] [id number] [address] 98[address] May, [facility] [id number] [address] May, [facility] [id number] [address] 23 May, 2014 [facility] [address] [place] [id number] [address] May, [facility] [id number] [address] May, [facility] [address] [id number] [address] May, [facility] [id number] [address] 1687 May, [facility] [place] [facility] [address] [id number] [place] [address] 9994 May, [facility] [place] [facility] [address] [id number] [place] [address]- 7739 May, [facility] [place] [facility] [address] [id number] [place] [address]- 7392 May, [facility] [place] [facility] [address] [id number] [place] [address]- 3475 Apr, [facility] [place] [facility] [address] [id number] [place] [address]- 7675 Apr, [facility] [place] [facility] [address] [id number] [place] [address]- 8985 Apr, [facility] [place] [facility] [address] [id number] [place] [address]- 2359 Apr, [facility] [place] [facility] [address] [id number] [place] [address]- 2791 Apr, [facility] [place] [facility] [address] [id number] [place] [address]- 1970 Apr, [facility] [place] [facility] [address] [id number] [place] [address]- 9226 Apr, [facility] [place] [facility] [address] [id number] [place] [address] Apr, [facility] [place] [facility] [address] [id number] [place] [address]- 0914 Apr, [facility] [place] [facility] [address] [id number] [place] [address]- 0078 Apr, [facility] [place] [facility] [address] [id number] [place] [address]- 3873 Apr, [facility] [place] [facility] [address] [id number] [place] [address]- 0947 Apr, [facility] [place] [facility] [address] [id number] [place] [address]- 0410 Apr, [facility] [place] [facility] [address] [id number] [place] [address]- 0772 Apr, [facility] [place] [facility] [address] [id number] [place] [address]- 7926 Apr, [facility] [place] [facility] [address] [id number] [place] [address]- 5173 Mar, [facility] [place] [facility] [address] [id number] [place] [address] Mar, [facility] [place] [facility] [address] [id number] [place] [address] Mar, [facility] [place] [facility] [address] [id number] [place] [address]- 0077 Mar, [facility] [place] [facility] [address] [id number] [place] [address]- 8348 Feb, [facility] [place] [facility] [address] [id number] [place] [address]- 6003 Feb, [facility] [place] [facility] [address] [id number] [place] [address]- 0643 Feb, [facility] [place] [facility] [address] [id number] [place] [address]- 2846 Feb, [facility] [place] [facility] [address] [id number] [place] [address]- 2303 Jan, [facility] [place] [facility] [address] [id number] [place] [address]- 4143 Jan, [facility] [place] [facility] [address] [id number] [place] [address]- 1774 Jan, [facility] [place] [facility] [address] [id number] [place] [address]- 8652 Jan, [facility] [place] [facility] [address] [id number] [place] [address]- 7645 Jan, [facility] [place] [facility] [address] [id number] [place] [address]- 7255 Jan, [facility] [place] [facility] [address] [id number] [place] [address]- 6391 Jan, [facility] [place] [facility] [address] [id number] [place] [address] Jan, [facility] [place] [facility] [address] [id number] [place] [address]- 7589 Dec, [facility] [place] [facility] [address] [id number] [place] [address]- 8190 Dec, [facility] [place] [facility] [address] [id number] [place] [address]- 9975 Dec, [facility] [place] [facility] [address] [id number] [place] [address]- 4681 Dec, [facility] [place] [facility] [address] [id number] [place] [address]- 3055 Oct, [facility] [place] [facility] [address] [id number] [place] [address]- 5003 Oct, [facility] [place] [facility] [address] [id number] [place] [address]- 0683 Oct, [facility] [place] [facility] [address] [id number] [place] [address]- 6489 Oct, [facility] [place] [facility] [address] [id number] [place] [address]- 7017 Oct, [facility] [place] [facility] [address] [id number] [place] [address]- 0511 Oct, [facility] [place] [facility] [address] [id number] [place] [address]- 9498 Oct, [facility] [place] [facility] [address] [id number] [place] [address]- 2926 Oct, [facility] [place] [facility] [address] [id number] [place] [address]- 8198 Sep, [facility] [place] [facility] [address] [id number] [place] [address]- 1566 Sep, [facility] [place] [facility] [address] [id number] [place] [address]- 5733 Sep, [facility] [place] [facility] [address] [id number] [place] [address]- 5743 Sep, [facility] [place] [facility] [address] [id number] [place] [address]- 5623 Sep, [facility] [place] [facility] [address] [id number] [place] [address]- 7210 Sep, [facility] [place] [facility] [address] [id number] [place] [address]- 2913 Sep, [facility] [place] [facility] [address] [id number] [place] [address]- 1586 Sep, [facility] [place] [facility] [address] [id number] [place] [address]- 9739 Sep, [facility] [place] [facility] [address] [id number] [place] [address]- 2135 Sep, [facility] [place] [facility] [address] [id number] [place] [address]- 7911 August, [facility] [place] [facility] [address] [id number] [place] [address]- 8780 August, [facility] [place] [facility] [address] [id number] [place] [address]- 1165 August, [facility] [place] [facility] [address] [id number] [place] [address]- 4125 August, [facility] [place] [facility] [address] [id number] [place] [address]- 4694 August, [facility] [place] [facility] [address] [id number] [place] [address]- 7554 August, [facility] [place] [facility] [address] [id number] [place] [address]- 1407 August, [facility] [place] [facility] [address] [id number] [place] [address]- 9296 August, [facility] [place] [facility] [address] [id number] [place] [address]- 5691 August, [facility] [place] [facility] [address] [id number] [place] [address]- 2369 August, [facility] [place] [facility] [address] [id number] [place] [address]- 6553 August, [facility] [place] [facility] [address] [id number] [place] [address]- 5690 August, [facility] [place] [facility] [address] [id number] [place] [address]- 2696 Jul, [facility] [place] [facility] [address] [id number] [place] [address]- 4949 Jul, [facility] [place] [facility] [address] [id number] [place] [address]- 8783 Jul, [facility] [place] [facility] [address] [id number] [place] [address]- 4511 Jul, [facility] [place] [facility] [address] [id number] [place] [address]- 7122 Jul, [facility] [place] [facility] [address] [id number] [place] [address]- 0381 Jul, [facility] [place] [facility] [address] [id number] [place] [address]- 3622 Jun, [facility] [place] [facility] [address] [id number] [place] [address]- 2096 Jun, [facility] [place] [facility] [address] [id number] [place] [address]- 4178 May, [facility] [place] [facility] [address] [id number] [place] [address]- 4925 May, [facility] [address] [id number] [place] [address]- 8578 Apr, [facility] [place] [facility] [address] [id number] [place] [address]- 5340 Apr, [facility] [place] [facility] [address] [id number] [place] [address]- 5149 Apr, [facility] [place] [facility] [address] [id number] [place] [address]- 0572 Apr, [facility] [place] [facility] [address] [id number] [place] [address]- 8225 Apr, [facility] [place] [facility] [address] [id number] [place] [address]- 3523 Apr, [facility] [place] [facility] [address] [id number] [place] [address]- 3388 Apr, [facility] [place] [facility] [address] [id number] [place] [address]- 3024 Apr, [facility] [place] [facility] [address] [id number] [place] [address]- 3178 Apr, [facility] [place] [facility] [address] [id number] [place] [address]- 1179 Apr, [facility] [place] [facility] [address] [id number] [place] [address]- 1696 Apr, [facility] [place] [facility] [address] [id number] [place] [address]- 9569 Apr, [facility] [place] [facility] [address] [id number] [place] [address]- 2138 Apr, [facility] [place] [facility] [address] [id number] [place] [address]- 8725 Mar, [facility] [place] [facility] [address] [id number] [place] [address]- 3369 Mar, [facility] [place] [facility] [address] [id number] [place] [address] 2540 Mar, [facility] [address] [id number] [place] [address]- 7233 Mar, [facility] [place] [facility] [address] [id number] [place] [address]- 9896 Feb, [facility] [place] [facility] [address] [id number] [place] [address]- 2899 Feb, [facility] [place] [facility] [address] [id number] [place] [address]- 2915 Feb, [facility] [place] [facility] [address] [id number] [place] [address]- 2833 Feb, [facility] [place] [facility] [address] [id number] [place] [address]- 1200 Jan, [facility] [place] [facility] [address] [id number] [place] [address]- 8861 Jan, [facility] [place] [facility] [address] [id number] [place] [address]- 1157 Jan, [facility] [place] [facility] [address] [id number] [place] [address]- 8990 Jan, [facility] [place] [facility] [address] [id number] [place] [address]- 8217 Jan, [facility] [place] [facility] [address] [id number] [place] [address]- 1708 Jan, [facility] [place] [facility] [address] [id number] [place] [address]- 8476 Jan, [facility] [place] [facility] [address] [id number] [place] [address]- 1660 Jan, [facility] [place] [facility] [address] [id number] [place] [address]- 2546 Jan, [facility] [place] [facility] [address] [id number] [place] [address]- 7641 Dec, [facility] [address] [id number] [place] [address]- 9688 16 Dec, 2012 [facility] [place] [facility] [address] [id number] [place] [address]- 4785 16 Dec, 2012 [facility] [place] [facility] [address] [id number] [place] [address]- 8622 13 Dec, 2012 [facility] [place] [facility] [address] [id number] [place] [address]- 9848 Nov, [facility] [address] [id number] [place] [address]- 0885 Nov, [facility] [place] [facility] [address] [id number] [place] [address]- 3742 Nov, [facility] [place] [facility] [address] [id number] [place] [address]- 4917 Nov, [facility] [place] [facility] [address] [id number] [place] [address]- 0490 Oct, [facility] [place] [facility] [address] [id number] [place] [address]- 0235 Sep, [facility] [place] [facility] [address] [id number] [place] [address]- 4491 August, [facility] [place] [facility] [address] [id number] [place] [address]- 1138 August, [facility] [place] [facility] [address] [id number] [place] [address]- 4885 August, [facility] [place] [facility] [address] [id number] [place] [address]- 6625 August, [facility] [place] [facility] [address] [id number] [place] [address]- 4182 August, [facility] [place] [facility] [address] [id number] [place] [address] August, [facility] [place] [facility] [address] [id number] [place] [address]- 1292 August, [facility] [address] [id number] [place] [address]- 3083 August, [facility] [address] [id number] [place] [address]- 2078 August, [facility] [address] [id number] [place] [address]- 5618 August, [facility] [address] [id number] [place] [address]- 0277 August, [facility] [address] [id number] [place] [address]- 3887 August, [facility] [address] [id number] [place] [address]- 4359 Jul, [facility] [address] [id number] [place] [address]- 1972 Jul, [facility] [address] [id number] [place] [address]- 8959 Jul, [facility] [address] [id number] [place] [address]- 4131 Jul, [facility] [address] [id number] [place] [address]- 2716 Jul, [facility] [address] [id number] [place] [address]- 8142 Jul, [facility] [address] [id number] [place] [address]- 9846 Jul, [facility] [address] [id number] [place] [address]- 6178 Jul, [facility] [address] [id number] [place] [address]- 1623 Jul, [facility] [address] [id number] [place] [address]- 3929 Jul, [facility] [place] [facility] [address] [id number] [place] [address]- 9294 Jul, [facility] [place] [facility] [address] [id number] [place] [address]- 5766 Jun, [facility] [place] [facility] [address] [id number] [place] [address] 2546 Jun, [facility] [place] [facility] [address] [id number] [place] [address]- 9656 Jun, [facility] [place] [facility] [address] [id number] [place] [address]- 2189 Jun, [facility] [place] [facility] [address] [id number] [place] [address]- 1103 May, [facility] [place] [facility] [address] [id number] [place] [address]- 2857 May, [facility] [place] [facility] [address] [id number] [place] [address]- 4513 May, [facility] [place] [facility] [address] [id number] [place] [address]- 2338 May, [facility] [place] [facility] [address] [facility] [id number] [place] [address]- 8461 May, [facility] [place] [facility] [address] [facility] [id number] [place] [address]- 9574 May, [facility] [place] [facility] [address] [id number] [place] [address]- 5171 Apr, [facility] [place] [facility] [address] [id number] [place] [address]- 1142 Apr, [facility] [place] [facility] [address] [id number] [place] [address]- 1886 Apr, [facility] [place] [facility] [address] [id number] [place] [address]- 6625 Apr, [facility] [place] [facility] [address] [id number] [place] [address]- 6348 15 Mar, 2012 [facility] [place] [facility] [address] [id number] [place] [address]- 0128 14 Mar, 2012 [facility] [place] [facility] [address] [id number] [place] 8836 14 Mar, 2012 [facility] [place] [facility] [address] [id number] [place] [address]- 7865 14 Mar, 2012 [facility] [place] [facility] [address] [id number] [place] [address]- 3061 14 Mar, 2012 [facility] [place] [facility] [address] [id number] [place] [address]- 6010 Mar, [facility] [place] [facility] [address] [id number] [place] [address]- 8356 Mar, [facility] [place] [facility] [address] [id number] [place] [address]- 9884 Feb, [facility] [place] [facility] [address] [id number] [place] [address]- 6220 Feb, [facility] [place] [facility] [address] [id number] [place] [address]- 7324 Feb, [facility] [place] [facility] [address] [id number] [place] [address]- 5809 Feb, [facility] [place] [facility] [address] [id number] [place] [address]- 1573 Jan, [facility] [place] [facility] [address] [id number] [place] [address]- 5177 11 Jan, 2012 [facility] [place] [facility] [address] [id number] [place] [address]- 6058 10 Jan, 2012 [facility] [place] [facility] [address] [id number] [place] [address]- 8025 10 Jan, 2012 [facility] [place] [facility] [address] [facility] [id number] [place] [address]- 9571 Jan, [facility] [place] [facility] [address] [id number] [place] [address]- 2546 Jan, [facility] [address] [id number] [place] [address]- 3106 Dec, [facility] [place] [facility] [address] [id number] [place] [address]- 2546 Dec, [facility] [address] [id number] [place] [address] 2546 Nov, [facility] [place] [facility] [address] [id number] [place] [address]- 4901 Sep, [facility] [address] [id number] [place] [address]- 1226 August, [facility] [address] [id number] [place] [address]- 6435 August, [facility] [address] [id number] [place] [address]- 7636 August, [facility] [address] [id number] [place] [address]- 2122 August, [facility] [address] [id number] [place] [address]- 6965 August, [facility] [address] [id number] [place] [address]- 8816 Jun, [facility] [place] [facility] [address] [id number] [place] [address]- 4216 Jun, [facility] [place] [facility] [address] [id number] [place] [address]- 9802 Apr, [facility] [place] [facility] [address] [id number] [place] [address]- 1420 Apr, [facility] [place] [facility] [address] [id number] [place] [address] Mar, [facility] [place] [facility] [address] [id number] [place] [address] Feb, [facility] [address] [facility] [id number] [place] [address] 14 Feb, 2011 [facility] [address] [facility] [id number] [place] [address] 14 Feb, 2011 [facility] [address] [facility] [id number] [place] [address] 17 Jan, 2011 [facility] [address] [facility] [id number] [place] [address] 15 Jan, 2011 [facility] [address] [facility] [id number] [place] [address] 15 Jan, 2011 [facility] [address] [facility] [id number] [place] [address] 14 Jan, 2011 [facility] [id number] [place] [address] 15 May, 2010 [facility] [id number] [place] [address] Mar, [facility] [id number] [place] [address] Oct, [facility] [id number] [place] [address] Sep, [facility] [id number] [place] [address] Mar, [facility] [id number] [place] [address] Jan, [facility] [id number] [place] [address] Jan, [facility] [id number] [place] [address] May, IMMUNIZATIONS No Known Immunizations SOCIAL HISTORY Never Assessed REASON FOR VISIT Refill request PLAN OF CARE VITAL SIGNS MEDICATIONS Medication Instructions Dosage Frequency Start Date End Date Duration Status Hydrocodone-Acetaminophen 5-325 MG Orally 3 -4 times a day prn. must last 4 weeks 1 tablet as needed 20 Jul, 2017 15 Sep, 2017 28 days Active potassium 1 tab Unknown Klor-Con 10 10 MEQ Orally twice a day 1 tablet 12h 7 Sep, 2017 30 days Unknown Naproxen 500 MG Orally every 12 hrs 1 tablet with food or milk as needed 12h Unknown Pravastatin Sodium 20 MG TAKE ONE TABLET BY MOUTH AT BEDTIME 30 Unknown RESULTS No Results PROCEDURES No Known procedures [...]
--- OUTSIDE RECORDS SUMMARY | 2018-06-10 05:00 | XMS REPORT ---
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 Role Phone SIMA HODGES Unavailable PROBLEMS Type Condition ICD9-CM Code QHX18-OJ Code Onset Dates Condition Status SNOMED Code Problem Anxiety F41.9 Active 14552947 Problem Abnormal glucose R73.09 Active 745552772 Problem Chronic pain due to trauma G89.21 Active 615432414 Problem Hypokalemia E87.6 Active 77133233 Problem Neck pain M54.2 Active 11160636 Problem Neuroforaminal stenosis of spine M99.89 Active 979155406677 Problem Mixed hyperlipidemia E78.2 Active 49852745 Problem Essential hypertension I10 Active 64222272 ALLERGIES No Information ENCOUNTERS Encounter Location Date Diagnosis [facility] [place] [id number] [place] [address] 11532- 5898 Nov, Dysuria R30.0 [facility] [id number] [place] [address] 37741- 1061 Oct, Lateral epicondylitis, right elbow M77.11 [facility] [place] [id number] [place] [address] 75623- 6578 Oct, Neuroforaminal stenosis of spine M99.89 ; Visit for TB skin test Z11.1 and Essential hypertension I10 [facility] [place] [id number] [place] [address] 20813- 3700 Oct, [place] [id number] [place] [address] 23452- 3960 Oct, Neuroforaminal stenosis of spine M99.89 [facility] [place] [id number] [place] [address] 80374- 6681 Oct, Visit for TB skin test Z11.1 [facility] [place] [id number] [place] [address] 98704- 2545 05 Oct, 2017 Cystitis without hematuria N30.90 [place] [id number] [place] [address] 99593- 4336 28 Sep, 2017 Screening breast examination Z12.39 [facility] [address] 18948- 6451 26 Sep, 2017 Dysuria R30.0 and Cystitis without hematuria N30.90 [facility] [id number] [place] [address] 11227- 9006 14 Sep, 2017 Essential hypertension I10 and Neuroforaminal stenosis of spine M99.89 [facility] [id number] [place] [address] 61354- 0648 Sep, Abnormal glucose R73.09 [facility] [address] 58245- 9433 August, Lateral epicondylitis, right elbow M77.11 [place] [id number] [place] [address] 63029- 0695 August, Screen for STD (sexually transmitted disease) Z11.3 [facility] [id number] [place] [address] 49644- 2709 August, Neuroforaminal stenosis of spine M99.89 ; Mixed hyperlipidemia E78.2 ; Elevated fasting glucose R73.01 ; Screening mammogram, encounter for Z12.31 and Encounter for well woman exam without gynecological exam Z00.00 [place] [id number] [place] [address] 32516- 4300 August, Neuroforaminal stenosis of spine M99.89 [facility] [place] [id number] [place] [address] 36797- 6198 August, Essential hypertension I10 ; Hypokalemia E87.6 and Mixed hyperlipidemia E78.2 [facility] [address] [place] [address]- 2098 30 Jul, 2017 [facility] [id number] [place] [address] 31192- 9436 Jul, Neuroforaminal stenosis of spine M99.89 [facility] [id number] [place] [address] 94954- 0826 Jul, Lateral epicondylitis, right elbow M77.11 [facility] [address] 13186- 1701 Jul, [facility] [id number] [place] [address] 93981- 1122 Jun, High ankle sprain of right lower extremity, initial encounter S93.431A [facility] [id number] [place] [address] 48405- 9269 Jun, Essential hypertension I10 [facility] [id number] [place] [address] 80172- 8696 Jun, [facility] [id number] [place] [address] 17860- 8142 Jun, [facility] [id number] [place] [address] 10260- 4574 Jun, Neuroforaminal stenosis of spine M99.89 [facility] [id number] [place] [address] 25115- 7788 Jun, Pain of right upper extremity M79.601 and Essential hypertension I10 [facility] [id number] [place] [address] 85554- 1152 Jun, [facility] [id number] [place] [address] 04077- 0590 Jun, Dysuria R30.0 ; Acute cystitis with hematuria N30.01 and Screen for STD (sexually transmitted disease) Z11.3 [facility] [id number] [place] [address] 28355- 8228 May, Chronic pain due to trauma G89.21 [facility] [place] [id number] [place] [address] 23818- 6175 May, Essential hypertension I10 [facility] [place] [id number] [place] [address] 42693- 3066 May, Neuroforaminal stenosis of spine M99.89 [facility] [place] [id number] [place] [address] 24398- 9742 Apr, Allergic reaction, initial encounter T78.40XA [facility] [place] [id number] [place] [address] 30848- 8706 Apr, Low back pain, unspecified back pain laterality, unspecified chronicity, with sciatica presence unspecified M54.5 ; Acute cystitis with hematuria N30.01 ; Neuroforaminal stenosis of spine M99.89 ; Bilateral acute serous otitis media, recurrence not specified H65.03 ; Mixed hyperlipidemia E78.2 ; Essential hypertension I10 ; Immunization counseling Z71.89 and Encounter for immunization Z23 [place] [id number] [place] [address] 10144- 9658 Apr, Neck pain M54.2 [facility] [place] [id number] [place] [address] 11643- 6589 Mar, Neuroforaminal stenosis of spine M99.89 [facility] [place] [id number] [place] [address] 24584- 7139 Mar, Pharyngitis due to other organism J02.8 [facility] [id number] [place] [address] 75074- 1901 Feb, Neuroforaminal stenosis of spine M99.89 [facility] [place] [id number] [place] [address] 29277- 0959 08 Feb, 2017 UTI (urinary tract infection) N39.0 [facility] [place] [id number] [place] [address] 79588- 5343 07 Feb, 2017 Recent urinary tract infection Z87.440 ; Neuroforaminal stenosis of spine M99.89 ; Neck pain M54.2 ; Chronic pain due to trauma G89.21 and Recurrent UTI N39.0 [facility] [address] 31954- 3908 Feb, [facility] [address] 00712- 2256 Jan, Neuroforaminal stenosis of spine M99.89 [facility] [address] 77576- 1612 Dec, Neuroforaminal stenosis of spine M99.89 [facility] [address] 07220- 4245 18 Dec, 2016 Acute seasonal allergic rhinitis due to pollen J30.1 [facility] [place] [address] 91760- 6762 Dec, [facility] [address] 19359- 1807 08 Dec, 2016 Acute seasonal allergic rhinitis, unspecified trigger J30.2 ; Allergic conjunctivitis of both eyes H10.13 and Dysfunction of both eustachian tubes H69.83 [place] [place] [id number] [place] [address] 53923- 3509 07 Dec, 2016 [facility] [address] 19217- 1411 Dec, Nevus D22.9 [facility] [address] 04498- 1080 Nov, Chronic pain due to trauma G89.21 and Neuroforaminal stenosis of spine M99.89 [facility] [address] 82076- 6258 Nov, Neuroforaminal stenosis of spine M99.89 ; Essential hypertension I10 ; Mixed hyperlipidemia E78.2 ; Hypokalemia E87.6 ; Neck pain M54.2 and Nevus D22.9 [place] [address] [id number] [address]- 3088 Oct, Neuroforaminal stenosis of spine M99.89 [facility] [id number] [place] [address] 79703- 1406 Sep, Neuroforaminal stenosis of spine M99.89 [facility] [address] [id number], [place] [address]- 6302 Sep, [facility] [id number] [place] [address] 91965- 9771 August, [facility] [id number] [place] [address] 88047- 9795 August, Neck pain M54.2 and Neuroforaminal stenosis of spine M99.89 [facility] [address] [id number], [place] [address]- 9096 August, Routine gynecological examination Z01.419 and Screening breast examination Z12.39 [facility] [address] [id number] [address]- 7337 Jul, [facility] [id number] [place] [address] 70824- 5520 Jul, [facility] [address] [id number], [place] [address]- 6868 Jul, Neuroforaminal stenosis of spine M99.89 [facility] [address] [id number], [place] [address]- 7089 Jul, [facility] [address] [id number], [place] [address]- 2540 Jul, 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 [facility] [address] [id number], [place] [address]- 2541 Jul, [facility] [address] [id number], [place] [address]- 0236 Jul, [facility] [id number] [place] [address] 76228- 6474 Jun, Neuroforaminal stenosis of spine M99.89 [facility] [place] [address] 25432- 8282 Jun, Uterine leiomyoma, unspecified location D25.9 and Allergic reaction caused by a drug, initial encounter T78.40XA [address] 97237- 4806 Jun, [facility] [place] [address] 17397- 0163 May, UTI symptoms R39.9 and Pain of right sacroiliac joint M53.[address] 78703- 8317 May, Neuroforaminal stenosis of spine M99.89 [facility] [address] 67561- 3192 May, [facility] [address] 38864- 0873 May, Acute mucoid otitis media of left ear H65.112 and Acute non- recurrent maxillary sinusitis J01.00 [place] [id number] [place] [address] 36780- 1937 May, Acute bacterial conjunctivitis of both eyes H10.33 ; Left arm pain M79.602 and Hypokalemia E87.6 [place] [id number] [place] [address] 44110- 9425 Apr, [facility] [place] [address] 63074- 9716 Apr, Neuroforaminal stenosis of spine M99.89 ; Neck pain M54.2 ; Chronic pain due to trauma G89.21 ; Mixed hyperlipidemia E78.2 ; Essential hypertension I10 and Hypokalemia E87.[address] [place] [address]- 2424 Mar, Oral candidiasis B37.0 ; Neuroforaminal stenosis of spine M99.89 ; Neck pain M54.2 and Chronic pain due to trauma G89.21 [facility] [id number] [address]- 9256 Feb, [facility] [id number] [place] [address] 97909- 4920 Feb, [facility] [id number] [place] [address] 77119- 5966 Feb, UTI (urinary tract infection) N39.0 [facility] [id number] [place] [address] 59324- 0134 Feb, Dysuria R30.0 [facility] [id number] [place] [address] 98007- 3698 Feb, Dysuria R30.0 [facility] [id number] [place] [address] 00290- 6208 Feb, Neuroforaminal stenosis of spine M99.89 ; Neck pain M54.2 ; Essential hypertension I10 ; Chronic pain due to trauma G89.21 ; Dysuria R30.0 ; Abnormal MRI, shoulder R93.8 and Acute cystitis without hematuria N30.00 [facility] [address] [address]- 3722 Jan, [facility] [id number] [place] [address] 62954- 3198 Jan, [facility] [address] [address]- 4749 Jan, [facility] [id number] [place] [address] 12491- 1167 Jan, Abnormal MRI R93.8 [facility] [address] [address]- 5580 Dec, [facility] [address], [place] [address] -4002 15 Dec, 2015 Acute pain of left shoulder M25.512 [facility] [address] [address]- 8332 09 Dec, 2015 [facility] [id number] [address]- 2114 08 Dec, 2015 [facility] [id number] [place] [address] 51564- 3106 07 Dec, 2015 Acute pain of left shoulder M25.512 [facility] [id number] [address]- 2330 23 Nov, 2015 [facility] [id number] [place] [address] 08815- 9982 16 Nov, 2015 Neuroforaminal stenosis of spine M99.89 ; Neck pain M54.2 ; Abnormal mammogram R92.8 ; Essential hypertension I10 and Chronic pain due to trauma G89.21 [facility] [address], [place] [address]- 1709 Nov, [facility] [id number] [place] [address] 19591- 3855 Oct, Acute stress disorder F43.0 [facility] [address], [place] [address]- 5272 Oct, [facility] [address], [place] [address]- 5902 Oct, [facility] [address], [place] [address]- 1513 Oct, [facility] [id number] [address]- 6977 Sep, [facility] [address], [place] [address]- 5877 August, [facility] [address], [place] [address]- 7013 Jul, Neuroforaminal stenosis of spine M99.89 ; Neck pain M54.2 ; Abnormal mammogram R92.8 and Essential hypertension I10 [facility] [id number] [place] [address] 41742- 9806 Jul, [facility] [id number] [place] [address] 76450 2546 Jul, [facility] [id number] [place] [address] 18099 2546 Jul, Abnormal mammogram R92.8 [facility] [id number] [place] [address] 03561- 6926 Jul, [facility] [id number] [place] [address] 68225- 1704 Jul, UTI (urinary tract infection) N39.0 [facility] [id number] [place] [address] 85238 2546 Jul, Dysuria R30.0 [facility] [id number] [place] [address] 74927 2546 Jun, [facility] [id number] [place] [address] 46070 2546 Jun, [facility] [id number] [place] [address] 28604 2542 Jun, Hypokalemia E87.6 and Hematuria R31.9 [facility] [id number] [place] [address] 60980 2546 Jun, Hypokalemia E87.6 [facility] [id number] [place] [address] 93315 2546 Jun, [facility] [id number] [place] [address] 37406 2546 Jun, Hypokalemia E87.6 [facility] [id number] [place] [address] 39866- 9996 Jun, Hypokalemia E87.6 [facility] [id number] [place] [address] 17843- 1994 Jun, Neuroforaminal stenosis of spine M99.89 ; Hypokalemia E87.6 ; Neck pain M54.2 ; Essential hypertension I10 ; Mixed hyperlipidemia E78.2 and Screening breast examination Z12.39 [facility] [id number] [place] [address] 47077- 5727 Jun, Dysuria R30.0 ; UTI (urinary tract infection) N39.0 and Hematuria R31.9 [place] [id number] [place] [address] 08598- 4056 May, [place] [id number] [place] [address] 95081- 6586 May, High risk sexual behavior Z72.51 ; Hypokalemia E87.6 ; Neuroforaminal stenosis of spine M99.89 ; Neck pain M54.2 ; Essential hypertension I10 ; Mixed hyperlipidemia E78.2 ; STD exposure Z20.2 and Concern about STD in female without diagnosis Z71.1 [place] [id number] [place] [address] 70345- 0520 16 May, 2015 Neuroforaminal stenosis of spine M99.89 ; Neck pain M54.2 ; Hypokalemia E87.6 ; Essential hypertension I10 and Mixed hyperlipidemia E78.2 [facility] [id number] [place] [address] 57594- 9803 May, [facility] [id number] [place] [address] 30427 -5169 08 May, 2015 High risk sexual behavior Z72.51 ; STD exposure Z20.2 and Concern about STD in female without diagnosis Z71.1 [facility] [id number] [place] [address] 69913- 0387 May, [facility] [id number] [place] [address] 20224- 3165 Apr, Neuroforaminal stenosis of spine M99.89 ; Mixed hyperlipidemia E78.2 ; Essential hypertension I10 and Hypokalemia E87.6 [place] [id number] [place] [address] 18439- 2484 Mar, [place] [id number] [place] [address] 70906- 7281 Mar, Hypokalemia E87.6 [place] [id number] [place] [address] 66918- 9878 Mar, Neuroforaminal stenosis of spine M99.89 ; Mixed hyperlipidemia E78.2 ; Neck pain M54.2 ; Essential hypertension I10 ; Abnormal fasting glucose R73.09 ; Hypokalemia E87.6 and Constipation K59.00 [place] [id number] [place] [address] 18131- 7658 Feb, Neuroforaminal stenosis of spine M99.89 ; Mixed hyperlipidemia E78.2 ; Neck pain M54.2 ; Essential hypertension I10 ; Abnormal fasting glucose R73.09 ; Hypokalemia E87.6 and Constipation K59.00 [place] [id number] [place] [address] 42127- 9488 Feb, Elevated fasting blood sugar R73.01 [place] [id number] [place] [address] 24364- 2634 Feb, Elevated fasting blood sugar R73.01 [place] [id number] [place] [address] 97963- 6194 Feb, Hair loss L65.9 [place] [address] 27445- 6423 Feb, Sinusitis J32.9 ; Essential hypertension I10 and Hair loss L65.9 [place] [id number] [place] [address] 04944- 3945 Jan, [place] [address] [place] [address]- 5932 Jan, Essential hypertension I10 ; Neuroforaminal stenosis of spine M99.89 ; Neck pain M54.2 ; Mixed hyperlipidemia E78.2 and Anxiety F41.9 [facility] [id number] [place] [address] 88963- 3235 Jan, [facility] [address] 61920- 6381 Jan, Mixed hyperlipidemia E78.2 ; Essential (primary) hypertension I10 ; Strain of muscle, fascia and tendon at neck level, subsequent encounter S16.1XXD and Tension-type headache, unspecified, not intractable G44.209 [place] [address] 63299- 0291 Dec, Lumbar back pain 724.2 and Neuroforaminal stenosis of spine 724.00 [place] [address] 57803- 7464 Nov, [place] [address] 66583- 1135 Nov, Lumbar back pain 724.2 and Neuroforaminal stenosis of spine 724.00 [place] [id number] [place] [address] 64635- 2673 Nov, Edema 782.3 ; Lumbar back pain 724.2 ; Essential hypertension, benign 401.1 ; Hyperlipemia 272.4 ; Neuroforaminal stenosis of spine 724.00 and Post-concussion headache 339.20 [facility] [id number] [place] [address] 99560- 4905 Nov, [facility] [address] 87088- 7347 Nov, [facility] [id number] [place] [address] 40945- 4347 Oct, Essential hypertension, benign 401.1 [facility] [address] [place] [address]- 5433 Oct, Edema 782.3 ; Lumbar back pain 724.2 ; Essential hypertension, benign 401.1 ; Hyperlipemia 272.4 ; Neuroforaminal stenosis of spine 724.00 and Post-concussion headache 339.20 [facility] [id number] [place] [address] 89061- 1388 Oct, [facility] [id number] [place] [address] 80627- 4588 Oct, Edema 782.3 [facility] [id number] [place] [address] 89489- 1282 Oct, Lumbar back pain 724.2 [place] [id number] [place] [address] 70628- 4462 Oct, Cervicalgia 723.1 ; Lumbar back pain 724.2 and High risk medication use V58.69 [facility] [id number] [place] [address] 25143- 5838 Sep, [facility] [id number] [place] [address] 26415- 6417 Sep, Lumbar strain 847.2 [facility] [id number] [place] [address] 77498- 6480 August, Edema 782.3 and Eustachian tube dysfunction 381.81 [facility] [id number] [place] [address] 68625- 4711 August, [facility] [id number] [place] [address] 20184- 8714 August, Eustachian tube dysfunction 381.81 [facility] [id number] [place] [address] 62042- 9944 Jul, Otalgia 388.70 and Otitis media 382.9 [facility] [id number] [place] [address] 79599- 0341 Jul, [facility] [address] [facility] [id number] [place] [address]- 4460 28 Jul, 2014 [facility] [place] [facility] [address] [id number] [place] [address]- 6951 28 Jul, 2014 [facility] [place] [facility] [address] [id number] [place] [address]- 9952 14 Jul, 2014 [facility] [place] [facility] [address] [id number] [place] [address]- 4243 13 Jul, 2014 [facility] [place] [facility] [address] [id number] [place] [address]- 5570 27 Jun, 2014 [facility] [place] [facility] [address] [id number] [place] [address]- 4623 27 Jun, 2014 [facility] [place] [facility] [address] [facility] [id number] [place] [address]- 5183 16 Jun, 2014 [facility] [place] [facility] [address] [facility] [id number] [place] [address]- 8625 26 May, 2014 [facility] [place] [facility] [address] [facility] [id number] [place] [address] 26 May, 2014 [facility] [place] [facility] [address] [facility] [id number] [place] [address] 23 May, 2014 [facility] [place] [facility] [address] [facility] [id number] [place] [address] 17 May, 2014 [facility] [place] [facility] [address] [facility] [id number] [place] [address] 17 May, 2014 [facility] [place] [facility] [address] [facility] [id number] [place] [address] 11 May, 2014 [facility] [place] [facility] [address] [facility] [id number] [place] [address] 09 May, 2014 [facility] [place] [facility] [address] [facility] [id number] [place] [address] 05 May, 2014 [facility] [place] [facility] [address] [facility] [id number] [address] May, [facility] [place] [facility] [address] [id number] [place] [address] May, [facility] [place] [facility] [address] [id number] [place] [address] Apr, [facility] [place] [facility] [address] [id number] [place] [address] Apr, [facility] [place] [facility] [address] [id number] [place] [address] Apr, [facility] [place] [facility] [address] [id number] [place] [address] Apr, [facility] [place] [facility] [address] [id number] [place] [address] Apr, [facility] [place] [facility] [address] [id number] [place] [address] 7234 Apr, [facility] [place] [facility] [address] [id number] [place] [address] 8645 Apr, [facility] [place] [facility] [address] [id number] [place] [address] 6037 Apr, [facility] [place] [facility] [address] [id number] [place] [address] 4876 Apr, [facility] [place] [facility] [address] [id number] [place] [address] 7909 Apr, [facility] [place] [facility] [address] [id number] [address] Apr, [facility] [place] [facility] [address] [id number] [place] [address] 7078 Apr, [facility] [place] [facility] [address] [id number] [place] [address] 3913 Apr, [facility] [place] [facility] [address] [id number] [place] [address]- 9128 Apr, [facility] [place] [facility] [address] [id number] [place] [address]- 3069 Apr, [facility] [place] [facility] [address] [id number] [place] [address] 9661 Mar, [facility] [place] [facility] [address] [id number] [place] [address]- 2490 Mar, [facility] [place] [facility] [address] [id number] [place] [address]- 8871 Mar, [facility] [place] [facility] [address] [id number] [place] [address] Mar, [facility] [place] [facility] [address] [id number] [place] [address]- 3022 Feb, [facility] [place] [facility] [address] [id number] [place] [address] Feb, [facility] [place] [facility] [address] [id number] [place] [address]- 9481 Feb, [facility] [place] [facility] [address] [id number] [place] [address] 5350 Feb, [facility] [place] [facility] [address] [id number] [place] [address]- 7117 Jan, [facility] [place] [facility] [address] [id number] [place] [address] Jan, [facility] [place] [facility] [address] [id number] [place] [address]- 0732 Jan, [facility] [place] [facility] [address] [id number] [place] [address]- 2160 Jan, [facility] [place] [facility] [address] [id number] [place] [address]- 1074 Jan, [facility] [place] [facility] [address] [id number] [place] [address]- 3916 Jan, [facility] [place] [facility] [address] [id number] [place] [address]- 8109 Jan, [facility] [place] [facility] [address] [id number] [place] [address]- 2575 Jan, [facility] [place] [facility] [address] [id number] [place] [address]- 5721 Dec, [facility] [place] [facility] [address] [id number] [place] [address]- 1661 Dec, [facility] [place] [facility] [address] [id number] [place] [address]- 1145 Dec, [facility] [place] [facility] [address] [id number] [place] [address]- 6156 Dec, [facility] [place] [facility] [address] [id number] [place] [address]- 2706 Oct, [facility] [place] [facility] [address] [id number] [place] [address]- 8081 Oct, [facility] [place] [facility] [address] [id number] [place] [address]- 8717 Oct, [facility] [place] [facility] [address] [id number] [place] [address]- 0589 Oct, [facility] [place] [facility] [address] [id number] [place] [address]- 1296 Oct, [facility] [place] [facility] [address] [id number], [place] [address] 9800 Oct, [facility] [place] [facility] [address] [id number], [place] [address]- 3071 Oct, [facility] [place] [facility] [address] [id number] [place] [address]- 0450 Oct, [facility] [place] [facility] [address] [id number] [place] [address]- 1130 Sep, [facility] [place] [facility] [address] [id number] [place] [address]- 2048 Sep, [facility] [place] [facility] [address] [id number] [place] [address]- 2315 Sep, [facility] [place] [facility] [address] [id number] [place] [address]- 6196 Sep, [facility] [place] [facility] [address] [id number] [place] [address]- 1257 Sep, [facility] [place] [facility] [address] [id number] [place] [address]- 8691 Sep, [facility] [place] [facility] [address] [id number] [place] [address]- 4346 Sep, [facility] [place] [facility] [address] [id number] [place] [address]- 3200 Sep, [facility] [place] [facility] [address] [id number] [place] [address]- 7139 Sep, [facility] [place] [facility] [address] [id number] [place] [address]- 3238 Sep, [facility] [place] [facility] [address] [id number] [place] [address]- 7243 August, [facility] [place] [facility] [address] [id number] [place] [address]- 2928 August, [facility] [place] [facility] [address] [id number] [place] [address]- 7190 August, [facility] [place] [facility] [address] [id number] [place] [address]- 3766 August, [facility] [place] [facility] [address] [id number] [place] [address]- 5399 August, [facility] [place] [facility] [address] [id number] [place] [address]- 9236 August, [facility] [place] [facility] [address] [id number] [place] [address]- 8286 August, [facility] [place] [facility] [address] [id number] [place] [address]- 4363 August, [facility] [place] [facility] [address] [id number] [place] [address]- 6862 August, [facility] [place] [facility] [address] [id number] [place] [address]- 6523 August, [facility] [place] [facility] [address] [id number] [place] [address]- 1145 August, [facility] [place] [facility] [address] [id number] [place] [address]- 8285 August, [facility] [place] [facility] [address] [id number] [place] [address]- 7363 Jul, [facility] [place] [facility] [address] [id number] [place] [address]- 5779 Jul, [facility] [place] [facility] [address] [id number] [place] [address]- 9728 Jul, [facility] [place] [facility] [address] [id number] [place] [address]- 6825 Jul, [facility] [place] [facility] [address] [id number] [place] [address]- 8036 Jul, [facility] [place] [facility] [address] [id number] [place] [address]- 0825 Jul, [facility] [place] [facility] [address] [id number] [place] [address]- 2722 Jun, [facility] [place] [facility] [address] [id number] [place] [address]- 3614 Jun, [facility] [place] [facility] [address] [id number] [place] [address]- 8148 May, [facility] [place] [facility] [address] [id number] [place] [address]- 5242 May, [facility] [place] [facility] [address] [id number] [place] [address]- 7970 Apr, [facility] [place] [facility] [address] [id number], [place] [address]- 2720 Apr, [facility] [address] [id number] [place] [address]- 2017 Apr, [facility] [place] [facility] [address] [id number] [place] [address]- 7758 Apr, [facility] [place] [facility] [address] [id number] [place] [address]- 1259 Apr, [facility] [place] [facility] [address] [id number] [place] [address]- 4787 Apr, [facility] [place] [facility] [address] [id number] [place] [address]- 8818 Apr, [facility] [place] [facility] [address] [id number] [place] [address]- 7170 Apr, [facility] [place] [facility] [address] [id number] [place] [address]- 0671 Apr, [facility] [place] [facility] [address] [id number] [place] [address]- 9728 Apr, [facility] [place] [facility] [address] [id number] [place] [address]- 3001 Apr, [facility] [place] [facility] [address] [id number] [place] [address]- 1785 Apr, [facility] [place] [facility] [address] [id number], [place] [address]- 6289 Apr, [facility] [place] [facility] [address] [id number], [place] [address]- 9603 Mar, [facility] [place] [facility] [address] [id number] [place] [address]- 0558 Mar, [facility] [place] [facility] [address] [id number] [place] [address]- 9875 Mar, [facility] [place] [facility] [address] [id number] [place] [address]- 5376 Mar, [facility] [place] [facility] [address] [id number] [place] [address]- 6899 27 Feb, 2013 [facility] [place] [facility] [address] [id number] [place] [address]- 0983 Feb, [facility] [place] [facility] [address] [id number] [place] [address]- 1381 Feb, [facility] [place] [facility] [address] [id number] [place] [address]- 7041 Feb, [facility] [place] [facility] [address] [id number] [place] [address]- 2626 14 Jan, 2013 [facility] [place] [facility] [address] [id number] [place] [address]- 6878 14 Jan, 2013 [facility] [place] [facility] [address] [id number] [place] [address]- 6948 Jan, [facility] [place] [facility] [address] [id number] [place] [address]- 6744 Jan, [facility] [place] [facility] [address] [id number] [place] [address]- 0974 Jan, [facility] [place] [facility] [address] [id number] [place] [address]- 6943 Jan, [facility] [place] [facility] [address] [id number] [place] [address]- 5385 Jan, [facility] [place] [facility] [address] [id number] [place] [address]- 8587 Jan, [facility] [place] [facility] [address] [id number] [place] [address]- 6439 Jan, [facility] [place] [facility] [address] [id number] [place] [address]- 4257 26 Dec, 2012 [facility] [place] [facility] [address] [id number] [place] [address]- 2544 16 Dec, 2012 [facility] [place] [facility] [address] [id number] [place] [address]- 1778 16 Dec, 2012 [facility] [address] [id number] [place] [address]- 5722 Dec, [facility] [place] [facility] [address] [id number] [place] [address]- 5536 Nov, [facility] [address] [id number] [place] [address]- 4081 Nov, [facility] [place] [facility] [address] [id number] [place] [address]- 1924 Nov, [facility] [address] [id number] [place] [address]- 3606 Nov, [facility] [place] [facility] [address] [id number] [place] [address]- 4676 Oct, [facility] [address] [id number] [place] [address]- 3381 Sep, [facility] [address] [id number] [place] [address]- 5874 August, [facility] [address] [id number] [place] [address]- 2487 August, [facility] [address] [id number] [place] [address]- 1001 August, [facility] [place] [facility] [address] [id number] [place] [address]- 8796 August, [facility] [place] [facility] [address] [id number] [place] [address]- 9830 August, [facility] [place] [facility] [address] [id number] [place] [address]- 9396 August, [facility] [place] [facility] [address] [id number] [place] [address]- 7851 August, [facility] [place] [facility] [address] [id number] [place] [address]- 4167 August, [facility] [place] [facility] [address] [id number] [place] [address]- 2381 August, [facility] [address] [id number] [place] [address]- 0054 August, [facility] [address] [id number] [place] [address]- 1241 August, [facility] [address] [id number] [place] [address]- 1862 August, [facility] [address] [id number] [place] [address]- 3720 Jul, [facility] [address] [id number] [place] [address]- 0956 Jul, [facility] [address] [id number] [place] [address]- 2054 Jul, [facility] [address] [id number] [place] [address]- 1091 Jul, [facility] [address] [id number] [place] [address]- 7490 Jul, [facility] [address] [id number] [place] [address]- 8419 Jul, [facility] [address] [id number] [place] [address]- 8447 Jul, [facility] [address] [id number] [place] [address]- 8591 Jul, [facility] [address] [id number] [place] [address]- 8316 Jul, [facility] [address] [id number] [place] [address]- 2877 Jul, [facility] [place] [facility] [address] [id number] [place] [address]- 7459 Jul, [facility] [address] [id number] [place] [address]- 3301 Jun, [facility] [address] [id number] [place] [address]- 8210 Jun, [facility] [place] [facility] [address] [id number] [place] [address]- 6916 Jun, [facility] [place] [facility] [address] [id number] [place] [address] 2543 Jun, [facility] [place] [facility] [address] [id number] [place] [address]- 0850 May, [facility] [place] [facility] [address] [id number] [place] [address]- 0932 May, [facility] [place] [facility] [address] [id number] [place] [address]- 9887 May, [facility] [place] [facility] [address] [facility] [id number] [place] [address]- 2210 May, [facility] [place] [facility] [address] [id number] [place] [address]- 4424 May, [facility] [place] [facility] [address] [id number] [place] [address]- 2587 May, [facility] [place] [facility] [address] [facility] [id number] [place] [address]- 0671 Apr, [facility] [place] [facility] [address] [id number] [place] [address]- 2077 Apr, [facility] [place] [facility] [address] [id number], [place] [address]- 8965 30 Apr, 2012 [facility] [place] [facility] [address] [id number] [place] [address] 2545 Apr, [facility] [place] [facility] [address] [id number] [place] [address]- 5836 Mar, [facility] [place] [facility] [address] [id number] [place] [address]- 8551 Mar, [facility] [place] [facility] [address] [id number], [place] [address]- 4931 14 Mar, 2012 [facility] [place] [facility] [address] [id number] [place] [address]- 6041 14 Mar, 2012 [facility] [place] [facility] [address] [id number] [place] [address]- 1976 Mar, [facility] [place] [facility] [address] [facility] [id number] [place] [address]- 2670 Mar, [facility] [place] [facility] [address] [id number] [place] [address]- 8001 Mar, [facility] [place] [facility] [address] [facility] [id number] [place] [address]- 1500 Feb, [facility] [place] [facility] [address] [id number] [place] [address]- 0293 Feb, [facility] [place] [facility] [address] [facility] [id number], [place] [address]- 8305 Feb, [facility] [place] [facility] [address] [id number] [place] [address]- 9630 Feb, [facility] [place] [facility] [address] [id number], [place] [address]- 5190 Jan, [facility] [place] [facility] [address] [facility] [id number], [place] [address]- 4359 Jan, [facility] [place] [facility] [address] [facility] [id number], [place] [address]- 0341 Jan, [facility] [place] [facility] [address] [facility] [id number], [place] [address]- 9792 Jan, [facility] [place] [facility] [address] [id number], [place] [address]- 1223 Jan, [facility] [place] [facility] [address] [facility] [id number], [place] [address]- 4127 Jan, [facility] [place] [facility] [address] [facility] [id number], [place] [address]- 8240 Dec, [facility] [place] [facility] [address] [id number] [place] [address]- 3636 Dec, [facility] [place] [facility] [address] [id number] [place] [address]- 3436 Nov, [facility] [place] [facility] [address] [id number] [place] [address]- 2506 Sep, [facility] [place] [facility] [address] [id number] [place] [address]- 6756 August, [facility] [place] [facility] [address] [id number] [place] [address]- 7992 August, [facility] [place] [facility] [address] [id number] [place] [address]- 9936 August, [facility] [place] [facility] [address] [id number] [place] [address]- 3527 August, [facility] [place] [facility] [address] [id number] [place] [address]- 6086 August, [facility] [place] [facility] [address] [id number] [place] [address]- 6127 Jun, [facility] [place] [facility] [address] [id number] [place] [address]- 9256 Jun, [facility] [place] [facility] [address] [id number] [place] [address]- 0517 Apr, [facility] [place] [facility] [address] [id number] [place] [address]- 7749 Apr, [facility] [place] [facility] [address] [id number] [place] [address]- 7272 Mar, [facility] [place] [facility] [address] [id number] [place] [address]- 3426 Feb, [facility] [place] [facility] [address] [id number] [place] [address]- 2226 14 Feb, 2011 [facility] [place] [facility] [address] [id number] [place] [address]- 1477 Feb, [facility] [id number], [place] [address]- 5353 17 Jan, 2011 [facility] [id number] [place] [address]- 3326 Jan, [facility] [id number], [place] [address]- 2166 Jan, [facility] [id number] [place] [address] 37[address]- 4596 Jan, [facility] [id number] [place] [address] 00831- 6249 May, [facility] [id number] [place] [address] 55[address]- 2836 Mar, [facility] [id number], [place] [address]- 1396 Oct, [facility] [id number] [place] [phone] Sep, [facility] [id number] [place] [phone] Mar, [facility] [id number] [address] Jan, [facility] [id number] [address] Jan, [facility] [id number] [address] May, IMMUNIZATIONS No Known Immunizations SOCIAL HISTORY Never Assessed REASON FOR VISIT Controlled Med Refill/Appt PLAN OF CARE VITAL SIGNS MEDICATIONS Medication Instructions Dosage Frequency Start Date End Date Duration Status Hydrocodone-Acetaminophen 5-325 MG Orally 3 -4 times a day prn. must last 4 weeks 1 tablet as needed Jul, Active RESULTS No Results PROCEDURES No Known procedures INSTRUCTIONS MEDICATIONS ADMINISTERED No Known Medications MEDICAL (GENERAL) HISTORY Type Description Date Medical History hypertension Medical History Colposcopy with loop electrode excision of the cervix was performed 06/2012, mild squamous atypia (no definite dyplasia). Performed at [facility] Dr. Joy. Medical History Acute suppurative otitis [...]
--- OUTSIDE RECORDS SUMMARY | 2018-06-10 05:01 | XMS REPORT ---
Author Author SPIKE JULIEN Organization [facility] Address [address] [place] [address] Care Team Providers Care Supervisor Laundry Name Role Phone SPIKE JULIEN Unavailable PROBLEMS Type Condition ICD9-CM Code [id number] Code Onset Dates Condition Status SNOMED Code Problem Anxiety F41.9 Active 82247273 Problem Abnormal glucose R73.09 Active 501096232 Problem Chronic pain due to trauma G89.21 Active 390972960 Problem Hypokalemia E87.6 Active 26452759 Problem Neck pain M54.2 Active 83260783 Problem Neuroforaminal stenosis of spine M99.89 Active 352297096664 Problem Mixed hyperlipidemia E78.2 Active 13305408 Problem Essential hypertension I10 Active 14382971 ALLERGIES No Information ENCOUNTERS Encounter Location Date Diagnosis [facility] [id number] [place] [address] 08461- 3708 Nov, [facility] [id number] [place] [address] 11855- 6567 Oct, Lateral epicondylitis, right elbow M77.11 [facility] [id number] [place] [address] 06776- 0379 Oct, Visit for TB skin test Z11.1 ; Neuroforaminal stenosis of spine M99.89 and Essential hypertension I10 [facility] [address] [address] 5553 Oct, [facility] [id number] [place] [address] 79776- 2434 Oct, Neuroforaminal stenosis of spine M99.89 [facility] [id number] [place] [address] 02076- 2534 Oct, Visit for TB skin test Z11.1 [facility] [id number] [place] [address] 47513- 8305 05 Oct, 2017 Cystitis without hematuria N30.90 [facility] [id number] [place] [address] 14575- 0882 28 Sep, 2017 Screening breast examination Z12.39 [facility] [address] 86517- 8332 26 Sep, 2017 Dysuria R30.0 and Cystitis without hematuria N30.90 [facility] [id number] [place] [address] 81235- 0111 14 Sep, 2017 Essential hypertension I10 and Neuroforaminal stenosis of spine M99.89 [facility] [address] 37308- 3599 Sep, Abnormal glucose R73.09 [facility] [address] 89406- 7432 August, Lateral epicondylitis, right elbow M77.11 [facility] [address] 86237- 3154 August, Screen for STD (sexually transmitted disease) Z11.3 [facility] [id number] [place] [address] 43407- 5050 August, Neuroforaminal stenosis of spine M99.89 ; Mixed hyperlipidemia E78.2 ; Elevated fasting glucose R73.01 ; Screening mammogram, encounter for Z12.31 and Encounter for well woman exam without gynecological exam Z00.00 [facility] [id number] [place] [address] 16045- 9635 August, Neuroforaminal stenosis of spine M99.89 [facility] [id number] [place] [address] 76099- 2171 August, Essential hypertension I10 ; Hypokalemia E87.6 and Mixed hyperlipidemia E78.2 [facility] [id number] [place] [address] 27813- 9965 Jul, [facility] [id number] [place] [address] 74768- 0283 Jul, Neuroforaminal stenosis of spine M99.89 [facility] [id number] [place] [address] 21335- 8249 Jul, Lateral epicondylitis, right elbow M77.11 [facility] [address] 11711- 8510 Jul, [facility] [id number] [place] [address] 06784- 5602 Jun, High ankle sprain of right lower extremity, initial encounter S93.431A [facility] [id number] [place] [address] 07100- 5006 Jun, Essential hypertension I10 [facility] [id number] [place] [address] 49404- 4785 Jun, [facility] [id number] [place] [address] 56943- 3548 Jun, [facility] [id number] [place] [address] 58476- 4598 Jun, Neuroforaminal stenosis of spine M99.89 [facility] [id number] [place] [address] 78524- 1663 Jun, Pain of right upper extremity M79.601 and Essential hypertension I10 [facility] [id number] [place] [address] 31104- 4127 Jun, [facility] [id number] [place] [address] 97456- 254 Jun, Dysuria R30.0 ; Acute cystitis with hematuria N30.01 and Screen for STD (sexually transmitted disease) Z11.3 [facility] [id number] [place] [address] 32009- 3769 May, Chronic pain due to trauma G89.21 [facility] [id number] [place] [address] 03315- 6273 May, Essential hypertension I10 [facility] [id number] [place] [address] 26505- 9002 May, Neuroforaminal stenosis of spine M99.89 [facility] [id number] [place] [address] 70886- 6613 Apr, Allergic reaction, initial encounter T78.40XA [facility] [id number] [place] [address] 73643- 9234 Apr, Low back pain, unspecified back pain laterality, unspecified chronicity, with sciatica presence unspecified M54.5 ; Acute cystitis with hematuria N30.01 ; Neuroforaminal stenosis of spine M99.89 ; Bilateral acute serous otitis media, recurrence not specified H65.03 ; Mixed hyperlipidemia E78.2 ; Essential hypertension I10 ; Immunization counseling Z71.89 and Encounter for immunization Z23 [facility] [id number] [place] [address] 89490- 9068 Apr, Neck pain M54.[address] 85347- 6435 Mar, Neuroforaminal stenosis of spine M99.89 [facility] [id number] [place] [address] 89140- 9469 Mar, Pharyngitis due to other organism J02.8 [facility] [id number] [place] [address] 10943- 5811 Feb, Neuroforaminal stenosis of spine M99.89 [facility] [id number] [place] [address] 14586- 8500 08 Feb, 2017 UTI (urinary tract infection) N39.0 [facility] [id number] [place] [address] 98895- 4557 07 Feb, 2017 Recent urinary tract infection Z87.440 ; Neuroforaminal stenosis of spine M99.89 ; Neck pain M54.2 ; Chronic pain due to trauma G89.21 and Recurrent UTI N39.0 [facility] [address] 09652- 9226 Feb, [facility] [address] 79503- 7764 Jan, Neuroforaminal stenosis of spine M99.89 [facility] [address] 28346- 5713 Dec, Neuroforaminal stenosis of spine M99.89 [facility] [address] 801107- 5736 18 Dec, 2016 Acute seasonal allergic rhinitis due to pollen J30.1 [facility] [address] 42621- 4403 08 Dec, 2016 [facility] [address] 72829- 7401 08 Dec, 2016 Acute seasonal allergic rhinitis, unspecified trigger J30.2 ; Allergic conjunctivitis of both eyes H10.13 and Dysfunction of both eustachian tubes H69.83 [facility] [address] 69129- 2238 07 Dec, 2016 [facility] [address] 39853- 7153 Dec, Nevus D22.9 [facility] [address] 25845- 6783 Nov, Chronic pain due to trauma G89.21 and Neuroforaminal stenosis of spine M99.89 [facility] [address] 28554- 5378 Nov, Neuroforaminal stenosis of spine M99.89 ; Essential hypertension I10 ; Mixed hyperlipidemia E78.2 ; Hypokalemia E87.6 ; Neck pain M54.2 and Nevus D22.9 [facility] [address] [place] [address]- 7816 Oct, Neuroforaminal stenosis of spine M99.89 [facility] [address] [facility] [id number] [place] [address] 29633- 5159 Sep, Neuroforaminal stenosis of spine M99.89 [facility] [address] [place] [address] 91386- 3658 Sep, [facility] [address] [facility] [id number] [place] [address] 94533- 7631 August, [facility] [address] [facility] [id number] [place] [address] 82480- 0033 August, Neck pain M54.2 and Neuroforaminal stenosis of spine M99.89 [facility] [id number] [place] [address] 46216- 8600 August, Routine gynecological examination Z01.419 and Screening breast examination Z12.39 [facility] [id number] [place] [address] 09793- 4675 Jul, [facility] [id number] [place] [address] 46830- 0060 Jul, [facility] [address] [place] [address] 49733- 5867 Jul, Neuroforaminal stenosis of spine M99.89 [facility] [address] [place] [address] 13331- 2439 Jul, [facility] [address] [facility] [id number] [place] [address] 06923- 7259 Jul, 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 [facility] [address] [facility] [id number] [place] [address] 22689- 2035 Jul, [facility] [id number] [address]- 5074 Jul, [facility] [id number] [place] [address] 28508- 3031 Jun, Neuroforaminal stenosis of spine M99.89 [facility] [id number] [place] [address] 18815- 2066 Jun, Uterine leiomyoma, unspecified location D25.9 and Allergic reaction caused by a drug, initial encounter T78.40XA [facility] [id number] [place] [address] 40420- 8928 Jun, [facility] [address] 50386- 3762 May, UTI symptoms R39.9 and Pain of right sacroiliac joint M53.[address] 71015- 4790 May, Neuroforaminal stenosis of spine M99.89 [facility] [id number] [place] [address] 52526- 5153 May, [facility] [id number] [place] [address] 82827- 8753 May, Acute mucoid otitis media of left ear H65.112 and Acute non- recurrent maxillary sinusitis J01.00 [facility] [id number] [place] [address] 52489- 6158 May, Acute bacterial conjunctivitis of both eyes H10.33 ; Left arm pain M79.602 and Hypokalemia E87.6 [facility] [id number] [place] [address] 18249- 2708 Apr, [facility] [id number] [place] [address] 93334- 8595 Apr, Neuroforaminal stenosis of spine M99.89 ; Neck pain M54.2 ; Chronic pain due to trauma G89.21 ; Mixed hyperlipidemia E78.2 ; Essential hypertension I10 and Hypokalemia E87.6 [facility] [id number] [place] [address] 25754- 7926 Mar, Oral candidiasis B37.0 ; Neuroforaminal stenosis of spine M99.89 ; Neck pain M54.2 and Chronic pain due to trauma G89.21 [facility] [id number] [place] [address] 56852- 9228 Feb, [facility] [id number] [place] [address] 94958- 7765 Feb, [facility] [id number] [place] [address] 46689- 4321 Feb, UTI (urinary tract infection) N39.0 [facility] [address] 88629- 6997 Feb, Dysuria R30.0 [facility] [id number] [place] [address] 42036- 6831 Feb, Dysuria R30.0 [facility] [id number] [place] [address] 26878- 6990 Feb, Neuroforaminal stenosis of spine M99.89 ; Neck pain M54.2 ; Essential hypertension I10 ; Chronic pain due to trauma G89.21 ; Dysuria R30.0 ; Abnormal MRI, shoulder R93.8 and Acute cystitis without hematuria N30.00 [facility] [id number] [place] [address] 55923- 5256 Jan, [facility] [id number] [place] [address] 70105- 7376 Jan, [facility] [id number] [place] [address] 16640- 4217 Jan, [facility] [id number] [place] [address] 13676- 3928 Jan, Abnormal MRI R93.8 [facility] [id number] [place] [address] 03127- 0174 Dec, [facility] [id number] [place] [address] 74021 -1920 15 Dec, 2015 Acute pain of left shoulder M25.512 [facility] [id number] [address]- 3105 09 Dec, 2015 [facility] [address] [facility] [id number] [place] [address] 15377- 4418 08 Dec, 2015 [facility] [id number] [place] [address] 04094- 9574 07 Dec, 2015 Acute pain of left shoulder M25.512 [facility] [address] [address]- 4755 Nov, [facility] [id number] [place] [address] 59964- 6365 Nov, Neuroforaminal stenosis of spine M99.89 ; Neck pain M54.2 ; Abnormal mammogram R92.8 ; Essential hypertension I10 and Chronic pain due to trauma G89.21 [facility] [address] [address]- 5918 Nov, [facility] [address] [place] [address] 72720- 8967 Oct, Acute stress disorder F43.0 [facility] [address] [address]- 7698 Oct, [facility] [address], [place] [address]- 0323 Oct, [facility] [address], [place] [address]- 7914 Oct, [facility] [id number], [place] [address]- 4608 Sep, [facility] [id number], [place] [address]- 6144 August, [facility] [address] [address]- 4150 26 Apr, 2016 Neuroforaminal stenosis of spine M99.89 ; Neck pain M54.2 ; Abnormal mammogram R92.8 and Essential hypertension I10 [facility] [id number] [place] [address] 95334 2546 Jul, [facility] [address], [place] [address] 2546 Jul, [facility] [id number] [place] [address] 29781 2546 Jul, Abnormal mammogram R92.8 [facility] [id number] [place] [address] 28517 2546 Jul, [facility] [id number] [place] [address] 51978 2546 Jul, UTI (urinary tract infection) N39.0 [facility] [id number] [place] [address] 06578 2546 Jul, Dysuria R30.0 [facility] [id number] [place] [address] 91515 2546 Jun, [facility] [id number] [place] [address] 03524 2546 Jun, [facility] [address], [place] [address] 2546 Jun, Hypokalemia E87.6 and Hematuria R31.9 [facility] [address] [place] [address] 66759 2546 Jun, Hypokalemia E87.6 [facility] [address], [place] [address] 2546 Jun, [facility] [id number] [place] [address] 91671 2546 Jun, Hypokalemia E87.6 [facility] [address], [place] [address] 2546 Jun, Hypokalemia E87.6 [facility] [id number] [place] [address] 10927- 1814 15 Jun, 2015 Neuroforaminal stenosis of spine M99.89 ; Hypokalemia E87.6 ; Neck pain M54.2 ; Essential hypertension I10 ; Mixed hyperlipidemia E78.2 and Screening breast examination Z12.39 [facility] [id number] [place] [address] 83017- 3283 08 Jun, 2015 Dysuria R30.0 ; UTI (urinary tract infection) N39.0 and Hematuria R31.9 [facility] [id number] [place] [address] 94184- 8252 May, [facility] [id number] [place] [address] 32119- 4245 18 May, 2015 High risk sexual behavior Z72.51 ; Hypokalemia E87.6 ; Neuroforaminal stenosis of spine M99.89 ; Neck pain M54.2 ; Essential hypertension I10 ; Mixed hyperlipidemia E78.2 ; STD exposure Z20.2 and Concern about STD in female without diagnosis Z71.1 [facility] [id number] [place] [address] 82362- 5299 16 May, 2015 Neuroforaminal stenosis of spine M99.89 ; Neck pain M54.2 ; Hypokalemia E87.6 ; Essential hypertension I10 and Mixed hyperlipidemia E78.2 [facility] [id number] [place] [address] 62004- 9737 May, [facility] [id number] [place] [address] 70252 -6372 08 May, 2015 High risk sexual behavior Z72.51 ; STD exposure Z20.2 and Concern about STD in female without diagnosis Z71.1 [facility] [address] [place] [address] 41564- 2755 05 May, 2015 [facility] [id number] [place] [address] 51445- 3245 Apr, Neuroforaminal stenosis of spine M99.89 ; Mixed hyperlipidemia E78.2 ; Essential hypertension I10 and Hypokalemia E87.6 [facility] [id number] [place] [address] 61058- 5565 Mar, [facility] [id number] [place] [address] 60768- 2657 Mar, Hypokalemia E87.6 [facility] [id number] [place] [address] 38930- 0213 Mar, Neuroforaminal stenosis of spine M99.89 ; Mixed hyperlipidemia E78.2 ; Neck pain M54.2 ; Essential hypertension I10 ; Abnormal fasting glucose R73.09 ; Hypokalemia E87.6 and Constipation K59.00 [facility] [id number] [place] [address] 82905- 8293 Feb, Neuroforaminal stenosis of spine M99.89 ; Mixed hyperlipidemia E78.2 ; Neck pain M54.2 ; Essential hypertension I10 ; Abnormal fasting glucose R73.09 ; Hypokalemia E87.6 and Constipation K59.00 [facility] [id number] [place] [address] 62141- 6995 Feb, Elevated fasting blood sugar R73.01 [facility] [id number] [place] [address] 58187- 1499 Feb, Elevated fasting blood sugar R73.01 [facility] [id number] [place] [address] 39399- 8430 Feb, Hair loss L65.9 [facility] [id number] [place] [address] 24177- 0671 Feb, Sinusitis J32.9 ; Essential hypertension I10 and Hair loss L65.9 [facility] [id number] [place] [address] 81751- 3249 Jan, [facility] [id number] [place] [address] 09267- 5161 Jan, Essential hypertension I10 ; Neuroforaminal stenosis of spine M99.89 ; Neck pain M54.2 ; Mixed hyperlipidemia E78.2 and Anxiety F41.9 [facility] [id number] [place] [address] 46439- 5355 Jan, [facility] [id number] [place] [address] 72206- 4503 Jan, Mixed hyperlipidemia E78.2 ; Essential (primary) hypertension I10 ; Strain of muscle, fascia and tendon at neck level, subsequent encounter S16.1XXD and Tension-type headache, unspecified, not intractable G44.209 [facility] [address] 20198- 6603 Dec, Lumbar back pain 724.2 and Neuroforaminal stenosis of spine 724.00 [facility] [id number] [place] [address] 97635- 7882 Nov, [facility] [id number] [place] [address] 71891- 4034 Nov, Lumbar back pain 724.2 and Neuroforaminal stenosis of spine 724.00 [facility] [id number] [place] [address] 53077- 2277 Nov, Edema 782.3 ; Lumbar back pain 724.2 ; Essential hypertension, benign 401.1 ; Hyperlipemia 272.4 ; Neuroforaminal stenosis of spine 724.00 and Post-concussion headache 339.20 [facility] [id number] [place] [address] 58253- 3912 Nov, [facility] [id number] [place] [address] 09591- 2760 Nov, [facility] [id number] [place] [address] 84280- 7691 Oct, Essential hypertension, benign 401.1 [facility] [id number] [place] [address] 66608- 1894 Oct, Edema 782.3 ; Lumbar back pain 724.2 ; Essential hypertension, benign 401.1 ; Hyperlipemia 272.4 ; Neuroforaminal stenosis of spine 724.00 and Post-concussion headache 339.20 [facility] [id number] [place] [address] 43817- 5654 Oct, [facility] [id number] [place] [address] 21704- 9545 Oct, Edema 782.3 [facility] [id number] [place] [address] 07036- 8575 Oct, Lumbar back pain 724.2 [facility] [id number] [place] [address] 75064- 8038 Oct, Cervicalgia 723.1 ; Lumbar back pain 724.2 and High risk medication use V58.69 [facility] [id number] [place] [address] 33756- 5826 Sep, [facility] [id number] [place] [address] 61071- 0395 Sep, Lumbar strain 847.2 [facility] [id number] [place] [address] 97456- 7617 August, Edema 782.3 and Eustachian tube dysfunction 381.81 [facility] [address] [place] [address] 67513- 5843 August, [facility] [id number] [place] [address] 47143- 1531 August, Eustachian tube dysfunction 381.81 [facility] [id number] [place] [address] 46146- 2479 Jul, Otalgia 388.70 and Otitis media 382.9 [facility] [id number] [place] [address] 40422- 8655 Jul, [facility] [id number] [place] [address]- 1995 28 Jul, 2014 [facility] [place] [facility] [address] [facility] [id number] [place] [address] 28 Jul, 2014 [facility] [place] [facility] [address] [facility] [id number] [place] [address] 38[address] 14 Jul, 2014 [facility] [place] [facility] [id number] [place] [address] 13 Jul, 2014 [facility] [place] [facility] [address] [facility] [id number] [place] [address] 7398 27 Jun, 2014 [facility] [place] [facility] [address] [id number] [place] [address] 1841 27 Jun, 2014 [facility] [place] [facility] [address] [id number] [place] [address] 8272 16 Jun, 2014 [facility] [place] [facility] [id number] [place] [address] 7880 26 May, 2014 [facility] [place] [facility] [address] [id number] [place] [address]492 26 May, 2014 [facility] [place] [facility] [id number] [place] [address] 38[address] 23 May, 2014 [facility] [place] [facility] [id number] [place] [address]- [address] May, 2014 [facility] [place] [facility] [id number] [place] [address]- 9511 17 May, 2014 [facility] [place] [facility] [address] [id number] [place] [address]- 7164 11 May, 2014 [facility] [place] [facility] [address] [facility] [id number] [place] [address]- 6726 09 May, 2014 [facility] [place] [facility] [id number] [place] [address]- 5729 05 May, 2014 [facility] [place] [facility] [id number] [address]- [address] May, [facility] [place] [facility] [address] [id number] [place] [address]- 4661 May, [facility] [facility] [address] [id number] [place] [address] Apr, [facility] [place] [facility] [address] [id number] [place] [address] 8643 Apr, [facility] [place] [facility] [address] [id number] [place] [address] 0129 Apr, [facility] [place] [facility] [address] [id number] [place] [address] 4927 Apr, [facility] [place] [facility] [address] [id number] [place] [address] 3891 Apr, [facility] [place] [facility] [address] [id number] [place] [address] 3456 Apr, [facility] [place] [facility] [address] [id number] [place] [address] 6756 Apr, [facility] [place] [address] [id number] [place] [address] 4106 Apr, [facility] [place] [address] [id number] [place] [address]- 9908 Apr, [facility] [place] [address] [id number] [place] [address]- 4810 Apr, [facility] [address] [id number], [place] [address] Apr, [facility] [place] [address] [id number] [place] [address]- 9092 Apr, [facility] [place] [facility] [address] [id number] [place] [address]- 3726 Apr, [facility] [place] [address] [id number] [place] [address]- 9305 Apr, [facility] [place] [address] [id number] [place] [address]- 8681 Apr, [facility] [place] [address] [id number] [place] [address] Mar, [facility] [address] [id number] [place] [address] Mar, [facility] [place] [address] [id number] [place] [address] Mar, [facility] [place] [facility] [address] [id number] [place] [address]- 8889 Mar, [facility] [address] [id number] [place] [address] Feb, [facility] [address] [id number] [place] [address]- 6383 Feb, [facility] [address] [id number] [place] [address]- 6335 Feb, [facility] [address] [id number] [place] [address]- 2812 Feb, [facility] [address] [id number] [place] [address]- 2646 Jan, [facility] [address] [facility] [id number] [place] [address]- 2653 Jan, [facility] [address] [id number] [place] [address]- 9450 Jan, [facility] [address] [id number], [place] [address]- 9793 Jan, [facility] [address] [id number] [place] [address]- 2328 Jan, [facility] [address] [facility] [id number] [place] [address]- 9450 Jan, [facility] [address] [facility] [id number] [place] [address]- 8831 Jan, [facility] [address] [id number] [place] [address]- 7178 Jan, [facility] [address] [id number] [place] [address]- 4520 Dec, [facility] [address] [id number] [place] [address]- 2440 Dec, [facility] [address] [id number] [place] [address]- 3550 Dec, [facility] [address] [id number] [place] [address]- 3688 Dec, [facility] [address] [id number] [place] [address]- 2565 Oct, [facility] [address] [id number] [place] [address]- 2485 Oct, [facility] [facility] [address] [id number] [place] [address]- 3294 Oct, [facility] [facility] [address] [id number] [place] [address]- 2676 Oct, [facility] [address] [id number] [place] [address]- 5968 Oct, [facility] [address] [id number] [place] [address] 1954 Oct, [facility] [address] [id number] [place] [address]- 9285 Oct, [facility] [address] [id number] [place] [address]- 0566 Oct, [facility] [address] [id number] [place] [address]- 2145 Sep, [facility] [address] [id number] [place] [address]- 0713 Sep, [facility] [address] [id number] [place] [address]- 1239 Sep, [facility] [address] [id number] [place] [address]- 5990 Sep, [facility] [address] [id number] [place] [address]- 4706 Sep, [facility] [address] [id number] [place] [address]- 5076 Sep, [facility] [address] [id number] [place] [address]- 8448 Sep, [facility] [address] [id number] [place] [address]- 5829 Sep, [facility] [address] [id number] [place] [address]- 8517 Sep, [facility] [address] [id number] [place] [address]- 2595 Sep, [facility] [address] [id number] [place] [address]- 3847 August, [facility] [address] [id number] [place] [address]- 1051 August, [facility] [address] [id number] [place] [address]- 4312 August, [facility] [address] [id number] [place] [address] 1966 August, [facility] [address] [id number] [place] [address]- 2476 August, [facility] [address] [id number] [place] [address]- 2672 August, [facility] [address] [id number] [place] [address]- 7113 August, [facility] [address] [id number] [place] [address]- 8303 August, [facility] [address] [id number] [place] [address]- 2010 August, [facility] [address] [id number] [place] [address]- 5877 August, [facility] [address] [id number] [place] [address]- 5919 August, [facility] [address] [id number] [place] [address]- 9245 August, [facility] [address] [id number] [place] [address]- 2827 Jul, [facility] [address] [id number] [place] [address]- 7845 Jul, [facility] [address] [id number] [place] [address]- 8416 Jul, [facility] [address] [id number] [place] [address]- 7418 Jul, [facility] [address] [id number] [place] [address]- 5907 Jul, [facility] [address] [id number] [place] [address]- 1550 Jul, [facility] [address] [id number] [place] [address]- 6962 Jun, [facility] [address] [id number] [place] [address]- 0394 Jun, [facility] [address] [id number] [place] [address]- 7672 May, [facility] [address] [id number] [place] [address]- 2803 May, [facility] [address] [id number] [place] [address]- 8328 Apr, [facility] [address] [id number] [place] [address]- 4040 Apr, [facility] [address] [id number] [place] [address]- 2457 Apr, [facility] [address] [id number] [place] [address]- 0593 Apr, [facility] [address] [id number] [place] [address]- 7060 Apr, [facility] [address] [id number] [place] [address]- 5235 Apr, [facility] [address] [id number] [place] [address]- 5168 Apr, [facility] [address] [id number] [place] [address]- 5441 Apr, [facility] [address] [id number] [place] [address]- 2584 Apr, [facility] [address] [id number] [place] [address]- 5574 Apr, [facility] [address] [id number] [place] [address]- 0940 Apr, [facility] [address] [id number], [place] [address]- 1235 Apr, [facility] [address] [id number], [place] [address]- 4066 Apr, [facility] [address] [id number], [place] [address]- 7664 Mar, [facility] [address] [id number] [place] [address]- 9703 Mar, [facility] [address] [id number] [place] [address]- 1156 Mar, [facility] [address] [id number], [place] [address]- 9600 Mar, [facility] [address] [id number], [place] [address]- 7084 Feb, [facility] [address] [id number] [place] [address]- 8454 Feb, [facility] [address] [id number], [place] [address]- 2194 Feb, [facility] [address] [facility] [id number] [place] [address]- 5382 Feb, [facility] [address] [id number] [place] [address]- 1757 14 Jan, 2013 [facility] [address] [id number] [place] [address]- 7600 14 Jan, 2013 [facility] [address] [id number] [place] [address]- 3101 Jan, [facility] [address] [facility] [id number], [place] [address]- 9526 Jan, [facility] [address] [id number], [place] [address]- 2944 Jan, [facility] [address] [facility] [id number] [place] [address]- 1149 Jan, [facility] [address] [facility] [id number], [place] [address]- 6629 Jan, [facility] [address] [id number], [place] [address]- 7192 Jan, [facility] [address] [id number], [place] [address]- 3735 Jan, [facility] [address] [id number], [place] [address]- 1205 26 Dec, 2012 [facility] [address] [facility] [id number][place] [address]592 16 Dec, 2012 [facility] [address] [facility] [id number], [place] [address]- 3699 16 Dec, 2012 [facility] [address] [id number] [place] [address]- 7669 Dec, [facility] [address] [id number] [place] [address]- 2142 Nov, [facility] [address] [id number] [place] [address]- 9406 Nov, [facility] [address] [id number] [place] [address]- 1718 Nov, [facility] [address] [id number] [place] [address]- 8320 Nov, [facility] [address] [id number] [place] [address]- 3746 Oct, [facility] [address] [id number] [place] [address]- 3981 Sep, [facility] [address] [id number] [place] [address]- 4581 August, [facility] [address] [id number] [place]37 August, [facility] [address] [id number] [place] [address]- 1649 August, [facility] [address] [id number] [place] [address]- 4592 August, [facility] [address] [id number] [place] [address]- 0226 August, [facility] [address] [id number] [place] [address]- 7654 August, [facility] [address] [id number] [place] [address]- 6881 August, [facility] [address] [id number] [place] [address]- 2366 August, [facility] [address] [id number] [place] [address]- 0795 August, [facility] [address] [id number] [place] [address]- 7892 August, [facility] [address] [id number] [place] [address]- 9085 August, [facility] [address] [id number] [place] [address]- 6285 August, [facility] [address] [id number] [place] [address]- 0495 Jul, [facility] [address] [id number] [place] [address]- 7879 Jul, [facility] [address] [id number] [place] [address]- 2092 Jul, [facility] [address] [id number] [place] [address]- 2791 Jul, [facility] [address] [id number] [place] [address]- 9267 Jul, [facility] [address] [id number] [place] [address]- 5197 Jul, [facility] [address] [id number] [place] [address]- 1739 Jul, [facility] [address] [id number] [place] [address]- 5753 Jul, [facility] [address] [id number], [place] [address]- 7580 Jul, [facility] [address] [id number] [place] [address]- 2916 Jul, [facility] [address] [id number] [place] [address]- 0084 Jul, [facility] [address] [id number] [place] [address]- 8491 Jun, [facility] [address] [id number] [place] [address]- 5273 Jun, [facility] [address] [id number] [place] [address]- 0506 Jun, [facility] [place] [facility] [address] [id number] [place] [address] 2546 Jun, [facility] [address] [id number] [place] [address]- 0556 May, [facility] [place] [facility] [address] [id number] [place] [address] 2546 14 May, 2012 [facility] [address] [id number] [place] [address]- 0916 May, [facility] [address] [id number] [place] [address] 2546 May, [facility] [address] [id number] [place] [address] 254 May, [facility] [address] [id number] [place] [address]- 0761 May, [facility] [address] [id number] [place] [address]- 2861 Apr, [facility] [address] [facility] [id number] [place] [address]- 9027 Apr, [facility] [address] [id number] [place] [address] 2548 30 Apr, 2012 [facility] [facility] [address] [id number] [place] [address] 2543 Apr, [facility] [place] [facility] [address] [id number] [place] [address] 2546 Mar, [facility] [place] [facility] [address] [id number] [place] [address]- 2546 Mar, [facility] [place] [facility] [address] [facility] [id number] [place] [address]- 9267 Mar, [facility] [place] [facility] [address] [id number] [place] [address]- 4247 Mar, [facility] [place] [facility] [address] [id number] [place] [address]- 8458 Mar, [facility] [place] [facility] [address] [id number] [place] [address]- 0791 Mar, [facility] [place] [facility] [address] [id number] [place] [address]- 3588 Mar, [facility] [place] [facility] [address] [id number] [place] [address]- 4717 Feb, [facility] [place] [facility] [address] [id number] [place] [address]- 1340 Feb, [facility] [place] [facility] [address] [id number] [place] [address]- 3261 Feb, [facility] [place] [facility] [address] [id number] [place] [address]- 9198 Feb, [facility] [place] [facility] [address] [id number] [place] [address]- 8973 Jan, [facility] [place] [facility] [address] [id number], [place] [address]- 6675 Jan, [facility] [place] [facility] [address] [id number], [place] [address]- 8877 Jan, [facility] [place] [facility] [address] [id number], [place] [address]- 6256 Jan, [facility] [place] [facility] [address] [id number] [place] [address]- 6887 Jan, [facility] [place] [facility] [address] [id number], [place] [address]- 3663 Jan, [facility] [place] [facility] [address] [id number] [place] [address]- 9376 Dec, [facility] [place] [facility] [address] [id number] [place] [address]- 5086 Dec, [facility] [address] [id number] [place] [address]- 3026 Nov, [facility] [place] [facility] [address] [id number] [place] [address]- 3266 Sep, [facility] [place] [facility] [address] [id number] [place] [address]- 0076 August, [facility] [place] [facility] [address] [id number] [place] [address]- 4391 August, [facility] [place] [facility] [address] [id number] [place] [address]- 8782 August, [facility] [place] [facility] [address] [id number] [place] [address]- 8276 August, [facility] [address] [id number] [place] [address]- 9187 August, [facility] [place] [facility] [address] [id number] [place] [address]- 0595 Jun, [facility] [place] [facility] [address] [id number] [place] [address]- 6094 Jun, [facility] [place] [facility] [address] [id number] [place] [address]- 7713 Apr, [facility] [place] [facility] [address] [id number] [place] [address]- 1478 Apr, [facility] [place] [facility] [address] [id number] [place] [address]- 4627 Mar, [facility] [place] [facility] [address] [id number] [place] [address]- 0472 Feb, [facility] [place] [facility] [address] [id number] [place] [address]- 1278 Feb, [facility] [place] [facility] [address] [id number] [place] [address] Feb, [facility] [place] [facility] [id number] [address] Jan, 2011 [facility] [id number] [address] Jan, [facility] [id number] [place] [address] Jan, [facility] [id number] [place] [id number]- [id number] Jan, [facility] [id number] [place] [address] May, [facility] [id number] [place] [address] Mar, [facility] [id number] [place] [address] [id number]- [address] Oct, [facility] [id number] [place] [address]- [address] Sep, [facility] [id number] [place] [address]- [address] Mar, [facility] [id number] [place] [address]- [address] Jan, [facility] [id number] [place] [address] Jan, [facility] [id number] [address] May, IMMUNIZATIONS No Known Immunizations SOCIAL HISTORY Never Assessed REASON FOR VISIT Right elbow pain-xray done. Consult Spike Julien;Marcin RT(R) PLAN OF CARE Activity Details Follow Up 6 Weeks Reason: VITAL SIGNS Height 62 in 2017-07-27 Blood pressure systolic 138 mmHg 2017-07-27 Blood pressure diastolic 88 mmHg 2017-07-27 MEDICATIONS Medication Instructions Dosage Frequency Start Date End Date Duration Status Naproxen 500 MG Orally every 12 hrs 1 tablet with food or milk as needed 12h Jul, August, 14 days Active RESULTS No Results PROCEDURES Procedure Date Ordered Result Body Site DRAIN/INJECT, JOINT/BURSA July 27, 2017 DEPO MEDROL 40 MG/ML July 27, 2017 INSTRUCTIONS MEDICATIONS ADMINISTERED No Known [...]
--- OUTSIDE RECORDS SUMMARY | 2018-06-10 05:02 | XMS REPORT ---
Author Author SIMA HODGES [facility] Address [address] [place] [address] Care Team Providers Care Account Development Specialist Name Role Phone SIMA HODGES Unavailable PROBLEMS Type Condition ICD9-CM Code HMR86-RD Code Onset Dates Condition Status SNOMED Code Problem Anxiety F41.9 Active 21130114 Problem Abnormal glucose R73.09 Active 515274530 Problem Chronic pain due to trauma G89.21 Active 414966980 Problem Hypokalemia E87.6 Active 12791900 Problem Neck pain M54.2 Active 42777710 Problem Neuroforaminal stenosis of spine M99.89 Active 061439879137 Problem Mixed hyperlipidemia E78.2 Active 24263353 Problem Essential hypertension I10 Active 57051014 ALLERGIES No Information ENCOUNTERS Encounter Location Date Diagnosis [place] [id number] [place] [address] 06033- 0184 Nov, [place] [id number] [place] [address] 39761- 8404 Oct, Lateral epicondylitis, right elbow M77.11 [place] [id number] [place] [address] 29592- 1786 Oct, Visit for TB skin test Z11.1 ; Neuroforaminal stenosis of spine M99.89 and Essential hypertension I10 [facility] [address] [address] 79[address] Oct, [place] [id number] [place] [address] 34383- 5063 Oct, Neuroforaminal stenosis of spine M99.89 [facility] [id number] [place] [address] 86662- 5614 Oct, Visit for TB skin test Z11.1 [place] [id number] [place] [address] 85710- 7005 05 Oct, 2017 Cystitis without hematuria N30.90 [place] [id number] [place] [address] 40679- 5307 28 Sep, 2017 Screening breast examination Z12.39 [place] [id number] [place] [address] 75460- 9291 26 Sep, 2017 Dysuria R30.0 and Cystitis without hematuria N30.90 [place] [id number] [place] [address] 81393- 2220 14 Sep, 2017 Essential hypertension I10 and Neuroforaminal stenosis of spine M99.89 [place] [id number] [place] [address] 62204- 9926 Sep, Abnormal glucose R73.09 [place] [id number] [place] [address] 20519- 1444 August, Lateral epicondylitis, right elbow M77.11 [place] [id number] [place] [address] 38778- 8707 August, Screen for STD (sexually transmitted disease) Z11.3 [place] [id number] [place] [address] 31858- 3596 August, Neuroforaminal stenosis of spine M99.89 ; Mixed hyperlipidemia E78.2 ; Elevated fasting glucose R73.01 ; Screening mammogram, encounter for Z12.31 and Encounter for well woman exam without gynecological exam Z00.00 [place] [id number] [place] [address] 15340- 8276 August, Neuroforaminal stenosis of spine M99.89 [place] [id number] [place] [address] 36804- 0010 August, Essential hypertension I10 ; Hypokalemia E87.6 and Mixed hyperlipidemia E78.2 [place] [id number] [place] [address] 74103- 0084 Jul, [facility] [id number] [place] [address] 27542- 0376 Jul, Neuroforaminal stenosis of spine M99.89 [facility] [id number] [place] [address] 40347- 2116 Jul, Lateral epicondylitis, right elbow M77.11 [facility] [id number] [place] [address] 66408 2546 Jul, [facility] [id number] [place] [address] 66242- 5786 Jun, High ankle sprain of right lower extremity, initial encounter S93.431A [facility] [id number] [place] [address] 69327- 0086 Jun, Essential hypertension I10 [place] [id number] [place] [address] 16674- 8931 Jun, [facility] [id number] [place] [address] 74726- 8448 Jun, [facility] [id number] [place] [address] 77636- 8700 Jun, Neuroforaminal stenosis of spine M99.89 [facility] [id number] [place] [address] 46347- 8990 Jun, Pain of right upper extremity M79.601 and Essential hypertension I10 [facility] [id number] [place] [address] 30399- 2544 Jun, [facility] [id number] [place] [address] 25378- 5942 Jun, Dysuria R30.0 ; Acute cystitis with hematuria N30.01 and Screen for STD (sexually transmitted disease) Z11.3 [facility] [id number] [place] [address] 48388- 4292 May, Chronic pain due to trauma G89.21 [place] [id number] [place] [address] 60929- 4518 May, Essential hypertension I10 [place] [address] 74567- 3044 May, Neuroforaminal stenosis of spine M99.89 [place] [id number] [place] [address] 27174- 1827 Apr, Allergic reaction, initial encounter T78.40XA [place] [id number] [place] [address] 10231- 9185 Apr, Low back pain, unspecified back pain laterality, unspecified chronicity, with sciatica presence unspecified M54.5 ; Acute cystitis with hematuria N30.01 ; Neuroforaminal stenosis of spine M99.89 ; Bilateral acute serous otitis media, recurrence not specified H65.03 ; Mixed hyperlipidemia E78.2 ; Essential hypertension I10 ; Immunization counseling Z71.89 and Encounter for immunization Z23 [place] [id number] [place] [address] 26931- 1859 Apr, Neck pain M54.2 [place] [id number] [place] [address] 49304- 5450 Mar, Neuroforaminal stenosis of spine M99.89 [place] [id number] [place] [address] 64835- 4872 Mar, Pharyngitis due to other organism J02.8 [place] [id number] [place] [address] 26625- 1017 Feb, Neuroforaminal stenosis of spine M99.89 [place] [id number] [place] [address] 71946- 4196 08 Feb, 2017 UTI (urinary tract infection) N39.0 [place] [id number] [place] [address] 25360- 9006 07 Feb, 2017 Recent urinary tract infection Z87.440 ; Neuroforaminal stenosis of spine M99.89 ; Neck pain M54.2 ; Chronic pain due to trauma G89.21 and Recurrent UTI N39.0 [place] [address] 86577- 7250 Feb, [place] [address] 32379- 1871 Jan, Neuroforaminal stenosis of spine M99.89 [place] [address] 19682- 4809 Dec, Neuroforaminal stenosis of spine M99.89 [place] [address] 40486- 8338 18 Dec, 2016 Acute seasonal allergic rhinitis due to pollen J30.1 [place] [address] 55828- 9623 08 Dec, 2016 [place] [address] 81550- 8189 08 Dec, 2016 Acute seasonal allergic rhinitis, unspecified trigger J30.2 ; Allergic conjunctivitis of both eyes H10.13 and Dysfunction of both eustachian tubes H69.83 [place] [id number] [place] [address] 04148- 8062 07 Dec, 2016 [place] [address] 52001- 8294 Dec, Nevus D22.9 [place] [address] 25263- 8089 Nov, Chronic pain due to trauma G89.21 and Neuroforaminal stenosis of spine M99.89 [place] [address] 41524- 0599 Nov, Neuroforaminal stenosis of spine M99.89 ; Essential hypertension I10 ; Mixed hyperlipidemia E78.2 ; Hypokalemia E87.6 ; Neck pain M54.2 and Nevus D22.9 [place] [address] [address]- 7834 Oct, Neuroforaminal stenosis of spine M99.89 [facility] [address] [facility] [id number] [place] [address] 25819- 9903 Sep, Neuroforaminal stenosis of spine M99.89 [facility] [address] [facility] [id number] [place] [address] 40200- 5913 Sep, [facility] [address] [facility] [id number] [place] [address] 00100- 1581 August, [facility] [address] [facility] [id number] [place] [address] 59423- 5709 August, Neck pain M54.2 and Neuroforaminal stenosis of spine M99.89 [facility] [id number] [place] [address] 14494- 6635 August, Routine gynecological examination Z01.419 and Screening breast examination Z12.39 [facility] [address] [facility] [id number] [place] [address] 77835- 9924 Jul, [facility] [address] [place] [id number] [place] [address] 29671- 7515 Jul, [facility] [address] [facility] [id number] [place] [address] 78692- 5936 Jul, Neuroforaminal stenosis of spine M99.89 [facility] [address] [facility] [id number] [place] [address] 31374- 5493 Jul, [facility] [address] [facility] [id number] [place] [address] 18352- 2540 Jul, 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 [facility] [address] [facility] [id number] [place] [address] 29636- 2540 Jul, [facility] [address] [facility] [id number] [place] [address] 85300- 2382 Jul, [facility] [id number] [place] [address] 23993- 0039 Jun, Neuroforaminal stenosis of spine M99.89 [place] [address] 18339- 6614 Jun, Uterine leiomyoma, unspecified location D25.9 and Allergic reaction caused by a drug, initial encounter T78.40XA [address] 57353- 2672 Jun, [place] [address] 81012- 8797 May, UTI symptoms R39.9 and Pain of right sacroiliac joint M53.[address] 04267- 5207 May, Neuroforaminal stenosis of spine M99.89 [place] [address] 69801- 7383 May, [place] [address] 41438- 3286 May, Acute mucoid otitis media of left ear H65.112 and Acute non- recurrent maxillary sinusitis J01.00 [place] [id number] [place] [address] 65573- 7794 May, Acute bacterial conjunctivitis of both eyes H10.33 ; Left arm pain M79.602 and Hypokalemia E87.6 [place] [id number] [place] [address] 44673- 5094 Apr, [place] [address] 20287- 4950 Apr, Neuroforaminal stenosis of spine M99.89 ; Neck pain M54.2 ; Chronic pain due to trauma G89.21 ; Mixed hyperlipidemia E78.2 ; Essential hypertension I10 and Hypokalemia E87.6 [place] [address] 41580- 3164 Mar, Oral candidiasis B37.0 ; Neuroforaminal stenosis of spine M99.89 ; Neck pain M54.2 and Chronic pain due to trauma G89.21 [facility] [id number] [place] [address] 60670- 9162 Feb, [facility] [id number] [place] [address] 47419- 0338 Feb, [facility] [address] 15933- 5328 Feb, UTI (urinary tract infection) N39.0 [facility] [address] 05916- 6234 Feb, Dysuria R30.0 [facility] [id number] [place] [address] 10371- 4041 Feb, Dysuria R30.0 [facility] [address] 77579- 5429 Feb, Neuroforaminal stenosis of spine M99.89 ; Neck pain M54.2 ; Essential hypertension I10 ; Chronic pain due to trauma G89.21 ; Dysuria R30.0 ; Abnormal MRI, shoulder R93.8 and Acute cystitis without hematuria N30.00 [facility] [id number] [place] [address] 02240- 3217 Jan, [facility] [id number] [place] [address] 62724- 2770 Jan, [facility] [id number] [place] [address] 48698- 3220 Jan, [facility] [id number] [place] [address] 88415- 3129 Jan, Abnormal MRI R93.8 [facility] [id number] [place] [address] 19725- 3884 Dec, [facility] [address] [place] [address] 15 Dec, 2015 Acute pain of left shoulder M25.512 [facility] [address], [place] [address]- 4127 09 Dec, 2015 [facility] [address] [facility] [id number] [address]- 2546 08 Dec, 2015 [facility] [id number] [place] [address] 68915- 2541 07 Dec, 2015 Acute pain of left shoulder M25.512 [facility] [address], [place] [address]- 0530 Nov, [facility] [id number] [place] [address] 01963- 5026 Nov, Neuroforaminal stenosis of spine M99.89 ; Neck pain M54.2 ; Abnormal mammogram R92.8 ; Essential hypertension I10 and Chronic pain due to trauma G89.21 [facility] [address] [address]- 5540 Nov, [facility] [id number] [place] [address] 70045- 3193 Oct, Acute stress disorder F43.0 [facility] [address], [place] [address]- 3732 Oct, [facility] [address], [place] [address]- 4899 Oct, [facility] [address], [place] [address]- 2318 Oct, [facility] [address], [place] [address]- 4361 Sep, [facility] [address], [place] [address]- 1923 August, [facility] [address], [place] [address]- 7152 Jul, Neuroforaminal stenosis of spine M99.89 ; Neck pain M54.2 ; Abnormal mammogram R92.8 and Essential hypertension I10 [facility] [id number] [place] [address] 38822 2546 Jul, [facility] [id number] [place] [address] 56220 2546 Jul, [facility] [address] 68637 2546 Jul, Abnormal mammogram R92.8 [facility] [id number] [place] [address] 31464 2546 Jul, [facility] [address] 86357- 2548 Jul, UTI (urinary tract infection) N39.0 [facility] [id number] [place] [address] 39384 2546 Jul, Dysuria R30.0 [facility] [id number] [place] [address] 63137 2546 Jun, [facility] [id number] [place] [address] 74524 2546 Jun, [facility] [id number] [place] [address] 00843 2546 Jun, Hypokalemia E87.6 and Hematuria R31.9 [facility] [id number] [place] [address] 81076 2546 Jun, Hypokalemia E87.6 [facility] [id number] [place] [address] 85951 2546 Jun, [facility] [id number] [place] [address] 97968 2546 Jun, Hypokalemia E87.6 [facility] [id number] [place] [address] 75395 2546 Jun, Hypokalemia E87.6 [facility] [id number] [place] [address] 02024- 8215 Jun, Neuroforaminal stenosis of spine M99.89 ; Hypokalemia E87.6 ; Neck pain M54.2 ; Essential hypertension I10 ; Mixed hyperlipidemia E78.2 and Screening breast examination Z12.39 [facility] [id number] [place] [address] 00535- 6257 Jun, Dysuria R30.0 ; UTI (urinary tract infection) N39.0 and Hematuria R31.9 [place] [id number] [place] [address] 28481- 2112 May, [place] [id number] [place] [address] 70447- 0048 May, High risk sexual behavior Z72.51 ; Hypokalemia E87.6 ; Neuroforaminal stenosis of spine M99.89 ; Neck pain M54.2 ; Essential hypertension I10 ; Mixed hyperlipidemia E78.2 ; STD exposure Z20.2 and Concern about STD in female without diagnosis Z71.1 [place] [id number] [place] [address] 47171- 0780 16 May, 2015 Neuroforaminal stenosis of spine M99.89 ; Neck pain M54.2 ; Hypokalemia E87.6 ; Essential hypertension I10 and Mixed hyperlipidemia E78.2 [place] [id number] [place] [address] 52535- 9557 May, [facility] [id number] [place] [address] 80168 -9907 08 May, 2015 High risk sexual behavior Z72.51 ; STD exposure Z20.2 and Concern about STD in female without diagnosis Z71.1 [facility] [id number] [place] [address] 55788- 0590 May, [facility] [id number] [place] [address] 73832- 7605 Apr, Neuroforaminal stenosis of spine M99.89 ; Mixed hyperlipidemia E78.2 ; Essential hypertension I10 and Hypokalemia E87.6 [facility] [address] 08273- 6404 Mar, [facility] [address] 12513- 3722 Mar, Hypokalemia E87.6 [facility] [address] 08848- 2001 Mar, Neuroforaminal stenosis of spine M99.89 ; Mixed hyperlipidemia E78.2 ; Neck pain M54.2 ; Essential hypertension I10 ; Abnormal fasting glucose R73.09 ; Hypokalemia E87.6 and Constipation K59.00 [place] [address] 30057- 3485 Feb, Neuroforaminal stenosis of spine M99.89 ; Mixed hyperlipidemia E78.2 ; Neck pain M54.2 ; Essential hypertension I10 ; Abnormal fasting glucose R73.09 ; Hypokalemia E87.6 and Constipation K59.00 [place] [address] 67285- 2646 Feb, Elevated fasting blood sugar R73.01 [place] [address] 93015- 1617 Feb, Elevated fasting blood sugar R73.01 [facility] [address] 68218- 2819 Feb, Hair loss L65.9 [place] [address] 61556- 2574 Feb, Sinusitis J32.9 ; Essential hypertension I10 and Hair loss L65.9 [facility] [id number] [place] [address] 80220- 4427 Jan, [facility] [address] 13805- 1382 Jan, Essential hypertension I10 ; Neuroforaminal stenosis of spine M99.89 ; Neck pain M54.2 ; Mixed hyperlipidemia E78.2 and Anxiety F41.9 [facility] [id number] [place] [address] 05141- 3716 Jan, [facility] [id number] [place] [address] 89039- 0514 Jan, Mixed hyperlipidemia E78.2 ; Essential (primary) hypertension I10 ; Strain of muscle, fascia and tendon at neck level, subsequent encounter S16.1XXD and Tension-type headache, unspecified, not intractable G44.209 [place] [id number] [place] [address] 99408- 2000 Dec, Lumbar back pain 724.2 and Neuroforaminal stenosis of spine 724.00 [place] [id number] [place] [address] 31869- 1322 Nov, [facility] [id number] [place] [address] 72665- 2050 Nov, Lumbar back pain 724.2 and Neuroforaminal stenosis of spine 724.00 [place] [id number] [place] [address] 13152- 4230 Nov, Edema 782.3 ; Lumbar back pain 724.2 ; Essential hypertension, benign 401.1 ; Hyperlipemia 272.4 ; Neuroforaminal stenosis of spine 724.00 and Post-concussion headache 339.20 [facility] [id number] [place] [address] 78353- 3435 Nov, [facility] [id number] [place] [address] 66848- 0145 Nov, [facility] [id number] [place] [address] 76989- 3238 Oct, Essential hypertension, benign 401.1 [facility] [id number] [place] [address] 89088- 1242 Oct, Edema 782.3 ; Lumbar back pain 724.2 ; Essential hypertension, benign 401.1 ; Hyperlipemia 272.4 ; Neuroforaminal stenosis of spine 724.00 and Post-concussion headache 339.20 [facility] [id number] [address] Oct, [facility] [id number] [place] [address] 53339- 6848 Oct, Edema 782.3 [facility] [id number] [place] [address] 83176- 8676 Oct, Lumbar back pain 724.2 [facility] [id number] [place] [address] 94696- 1156 Oct, Cervicalgia 723.1 ; Lumbar back pain 724.2 and High risk medication use V58.69 [facility] [id number] [place] [address] 96652- 3383 Sep, [facility] [id number] [place] [address] 62614- 7603 Sep, Lumbar strain 847.2 [place] [facility] [id number] [place] [address] 77544- 3095 August, Edema 782.3 and Eustachian tube dysfunction 381.81 [facility] [id number] [address] August, [facility] [id number] [place] [address] 55394- 9147 August, Eustachian tube dysfunction 381.81 [facility] [id number] [place] [address] 50233- 5691 Jul, Otalgia 388.70 and Otitis media 382.9 [facility] [id number] [address] Jul, [facility] [id number] [place] [address]- 9053 28 Jul, 2014 [facility] [place] [facility] [address] [id number] [place] [address]- 6088 28 Jul, 2014 [facility] [place] [facility] [address] [id number] [place] [address] 14 Jul, 2014 [facility] [place] [facility] [address] [facility] [id number] [place] [address]- 7841 13 Jul, 2014 [facility] [place] [facility] [address] [id number] [place] [address]- 4390 27 Jun, 2014 [facility] [place] [facility] [address] [id number] [place] [address]- 3252 27 Jun, 2014 [facility] [place] [facility] [address] [facility] [id number] [place] [address]- 0534 16 Jun, 2014 [facility] [place] [facility] [address] [facility] [id number] [place] [address]- 2460 26 May, 2014 [facility] [place] [facility] [address] [facility] [id number] [place] [address]- 7303 26 May, 2014 [facility] [place] [facility] [address] [id number] [place] [address]- 4936 23 May, 2014 [facility] [place] [facility] [address] [facility] [id number] [place] [address]- 9169 17 May, 2014 [facility] [place] [facility] [address] [facility] [id number] [place] [address] 17 May, 2014 [facility] [place] [facility] [address] [facility] [id number] [place] [address] 254 11 May, 2014 [facility] [place] [facility] [address] [facility] [id number] [place] [address] 0278 09 May, 2014 [facility] [place] [facility] [address] [facility] [id number] [place] [address] 2546 05 May, 2014 [facility] [place] [facility] [address] [id number] [address] May, [facility] [place] [facility] [address] [id number] [place] [address]- 6614 May, [facility] [place] [facility] [address] [id number] [place] [address]- 2179 Apr, [facility] [place] [facility] [address] [facility] [id number] [place] [address]- 7858 Apr, [facility] [place] [facility] [address] [id number] [place] [address]- 9719 Apr, [facility] [place] [facility] [address] [id number] [place] [address]- 8728 Apr, [facility] [place] [facility] [address] [id number] [place] [address]- 3074 Apr, [facility] [place] [facility] [address] [id number] [place] [address]- 5196 Apr, [facility] [place] [facility] [address] [id number] [place] [address]- 1539 Apr, [facility] [place] [facility] [address] [id number] [place] [address]- 3540 Apr, [facility] [place] [facility] [address] [id number] [place] [address]- 0313 Apr, [facility] [place] [facility] [address] [id number] [place] [address]- 3063 Apr, [facility] [place] [facility] [address] [id number], [place] [address] Apr, [facility] [place] [facility] [address] [id number] [place] [address]- 0493 Apr, [facility] [place] [facility] [address] [id number] [place] [address]- 0008 Apr, [facility] [place] [facility] [address] [id number] [place] [address]- 5909 Apr, [facility] [place] [facility] [address] [id number] [place] [address] Apr, [facility] [place] [facility] [address] [id number] [place] [address]- 1313 Mar, [facility] [place] [facility] [address] [id number] [place] 6714 Mar, [facility] [place] [facility] [address] [id number] [place] [address] Mar, [facility] [place] [facility] [address] [id number] [place] [address]- 8952 Mar, [facility] [place] [facility] [address] [id number] [place] [address]- 2259 Feb, [facility] [place] [facility] [address] [id number] [place] [address]- 7914 Feb, [facility] [place] [facility] [address] [id number] [place] [address]- 8184 Feb, [facility] [place] [facility] [address] [id number] [place] [address]- 5451 Feb, [facility] [place] [facility] [address] [id number] [place] [address]- 5915 Jan, [facility] [place] [facility] [address] [facility] [id number] [place] [address]- 2189 Jan, [facility] [place] [facility] [address] [id number] [place] [address]- 8774 Jan, [facility] [place] [facility] [address] [id number] [place] [address]- 2900 Jan, [facility] [place] [facility] [address] [id number] [place] [address]- 6648 Jan, [facility] [place] [facility] [address] [id number] [place] [address]- 9139 Jan, [facility] [place] [facility] [address] [id number] [place] [address] Jan, [facility] [place] [facility] [address] [id number] [place] [address]- 9737 Jan, [facility] [place] [facility] [address] [id number] [place] [address]- 4156 Dec, [facility] [place] [facility] [address] [id number] [place] [address]- 4435 Dec, [facility] [place] [facility] [address] [id number] [place] [address]- 9569 Dec, [facility] [place] [facility] [address] [id number] [place] [address]- 6854 Dec, [facility] [place] [facility] [address] [id number] [place] [address]- 6509 Oct, [facility] [place] [facility] [address] [id number] [place] [address]- 4932 Oct, [facility] [place] [facility] [address] [id number] [place] [address]- 9994 Oct, [facility] [place] [facility] [address] [id number] [place] [address]- 4144 Oct, [facility] [place] [facility] [address] [id number] [place] [address]- 9991 Oct, [facility] [place] [facility] [address] [id number] [place] [address]- 7816 Oct, [facility] [place] [facility] [address] [id number] [place] [address]- 4628 Oct, [facility] [place] [facility] [address] [id number] [place] [address]- 9675 Oct, [facility] [place] [facility] [address] [id number] [place] [address]- 5377 Sep, [facility] [place] [facility] [address] [id number] [place] [address]- 6758 Sep, [facility] [place] [facility] [address] [id number] [place] [address]- 8093 Sep, [facility] [place] [facility] [address] [id number] [place] [address]- 3134 Sep, [facility] [place] [facility] [address] [id number] [place] [address]- 6082 Sep, [facility] [place] [facility] [address] [id number] [place] [address]- 3569 Sep, [facility] [place] [facility] [address] [id number] [place] [address]- 1508 Sep, [facility] [place] [facility] [address] [id number] [place] [address]- 1910 Sep, [facility] [place] [facility] [address] [id number] [place] [address]- 4273 Sep, [facility] [place] [facility] [address] [id number] [place] [address]- 1431 Sep, [facility] [place] [facility] [address] [id number] [place] [address]- 2900 August, [facility] [place] [facility] [address] [id number] [place] [address]- 6754 August, [facility] [place] [facility] [address] [id number] [place] [address]- 4483 August, [facility] [place] [facility] [address] [id number] [place] [address]- 4108 August, [facility] [place] [facility] [address] [id number] [place] [address]- 7199 August, [facility] [place] [facility] [address] [id number] [place] [address]- 0743 August, [facility] [place] [facility] [address] [id number] [place] [address]- 9250 August, [facility] [place] [facility] [address] [id number] [place] [address]- 7822 August, [facility] [place] [facility] [address] [id number] [place] [address]- 1654 August, [facility] [place] [facility] [address] [id number] [place] [address]- 3775 August, [facility] [place] [facility] [address] [id number] [place] [address]- 6038 August, [facility] [place] [facility] [address] [id number] [place] [address]- 5474 August, [facility] [place] [facility] [address] [id number] [place] [address]- 4303 Jul, [facility] [place] [facility] [address] [id number] [place] [address]- 405[address] Jul, [facility] [place] [facility] [address] [id number] [place] [address]- [address] Jul, [facility] [place] [facility] [address] [id number] [place] [address]- 8286 Jul, [facility] [place] [facility] [address] [id number] [place] [address]- 9048 Jul, [facility] [place] [facility] [address] [id number] [place] [address]- 0020 Jul, [facility] [place] [facility] [address] [id number] [place] [address]- 8197 Jun, [facility] [place] [facility] [address] [id number] [place] [address]- 5679 Jun, [facility] [place] [facility] [address] [id number] [place] [address]- 5222 May, [facility] [place] [facility] [address] [id number] [place] [address]- 4111 May, [facility] [place] [facility] [address] [id number] [place] [address]- 0803 Apr, [facility] [place] [facility] [address] [id number] [place] [address]- 4720 Apr, [facility] [address] [id number] [place] [address]- 7957 Apr, [facility] [place] [facility] [address] [id number] [place] [address]- 8758 Apr, [facility] [place] [facility] [address] [id number] [place] [address]- 5836 Apr, [facility] [place] [facility] [address] [id number] [place] [address]- 8847 Apr, [facility] [place] [facility] [address] [id number] [place] [address]- 2597 Apr, [facility] [place] [facility] [address] [id number] [place] [address]- 3360 Apr, [facility] [place] [facility] [address] [id number] [place] [address]- 5543 Apr, [facility] [place] [facility] [address] [id number] [place] [address]- 4896 Apr, [facility] [place] [facility] [address] [id number] [place] [address]- 5709 Apr, [facility] [place] [facility] [address] [id number] [place] [address]- 9713 Apr, [facility] [place] [facility] [address] [id number], [place] [address]- 7785 Apr, [facility] [place] [facility] [address] [id number], [place] [address]- 0014 Mar, [facility] [place] [facility] [address] [id number] [place] [address]- 1159 Mar, [facility] [place] [facility] [address] [id number], [place] [address]- 2156 Mar, [facility] [place] [facility] [address] [id number], [place] [address]- 2806 Mar, [facility] [place] [facility] [address] [id number] [place] [address]- 8453 27 Feb, 2013 [facility] [place] [facility] [address] [id number] [place] [address]- 2725 27 Feb, 2013 [facility] [place] [facility] [address] [id number] [place] [address]- 8149 Feb, [facility] [place] [facility] [address] [id number] [place] [address]- 5599 08 Feb, 2013 [facility] [place] [facility] [address] [id number] [place] [address]- 2309 14 Jan, 2013 [facility] [place] [facility] [address] [id number] [place] [address]- 8679 14 Jan, 2013 [facility] [place] [facility] [address] [id number] [place] [address]- 9861 11 Jan, 2013 [facility] [place] [facility] [address] [id number] [place] [address]- 0232 11 Jan, 2013 [facility] [place] [facility] [address] [id number] [place] [address]- 2224 10 Jan, 2013 [facility] [place] [facility] [address] [id number] [place] [address]- 6891 10 Jan, 2013 [facility] [place] [facility] [address] [facility] [id number] [place] [address]- 0725 09 Jan, 2013 [facility] [place] [facility] [address] [id number] [place] [address]- 1466 09 Jan, 2013 [facility] [place] [facility] [address] [id number] [place] [address]- 2059 Jan, [facility] [place] [facility] [address] [id number] [place] [address]- 1821 26 Dec, 2012 [facility] [place] [facility] [address] [id number] [place] 4628 16 Dec, 2012 [facility] [place] [facility] [address] [id number] [place] 7450 16 Dec, 2012 [facility] [place] [facility] [address] [id number] [place] [address]- 6354 Dec, [facility] [address] [id number] [place] [address]- 3471 Nov, [facility] [address] [id number] [place] [address]- 7492 Nov, [facility] [address] [id number] [place] [address]- 3496 Nov, [facility] [address] [id number] [place] [address]- 7326 Nov, [facility] [address] [id number] [place] [address]- 8315 Oct, [facility] [address] [id number] [place] [address]- 1927 Sep, [facility] [address] [id number] [place] [address]- 1771 August, [facility] [address] [id number] [place] [address]- 8145 August, [facility] [address] [id number] [place] [address]- 4746 August, [facility] [address] [id number] [place] [address]- 6735 August, [facility] [address] [id number] [place] [address]- 8305 August, [facility] [address] [id number] [place] [address]- 9354 August, [facility] [address] [id number] [place] [address]- 7675 August, [facility] [address] [id number] [place] [address]- 4850 August, [facility] [address] [id number] [place] [address]- 9765 August, [facility] [address] [id number] [place] [address]- 5324 August, [facility] [address] [id number] [place] [address]- 2178 August, [facility] [address] [id number] [place] [address]- 7291 August, [facility] [address] [id number] [place] [address]- 7104 Jul, [facility] [address] [id number] [place] [address]- 4590 Jul, [facility] [address] [id number] [place] [address]- 2892 Jul, [facility] [address] [id number] [place] [address]- 8615 Jul, [facility] [address] [id number] [place] [address]- 2525 Jul, [facility] [address] [id number] [place] [address]- 2678 Jul, [facility] [place] [facility] [address] [id number] [place] [address]- 1270 Jul, [facility] [address] [id number] [place] [address]- 5873 Jul, [facility] [place] [facility] [address] [id number] [place] [address]- 9636 Jul, [facility] [place] [facility] [address] [id number] [place] [address]- 0711 Jul, [facility] [place] [facility] [address] [id number] [place] [address]- 7633 Jul, [facility] [place] [facility] [address] [id number] [place] [address]- 4017 Jun, [facility] [place] [facility] [address] [id number] [place] [address]- 6555 Jun, [facility] [address] [id number] [place] [address]- 9470 Jun, [facility] [place] [facility] [address] [id number] [place] [address]- 4846 Jun, [facility] [address] [id number] [place] [address]- 9280 May, [facility] [place] [facility] [address] [id number] [place] [address]- 3667 May, [facility] [address] [id number] [place] [address]- 2852 May, [facility] [address] [id number] [place] [address]- 8919 May, [facility] [place] [facility] [address] [id number] [place] [address]- 7936 May, [facility] [address] [id number] [place] [address]- 0692 May, [facility] [address] [id number] [place] [address]- 2384 Apr, [facility] [address] [id number] [place] [address]- 9420 Apr, [facility] [address] [id number] [place] [address]- 9367 30 Apr, 2012 [facility] [place] [facility] [address] [id number] [place] [address]- 4137 Apr, [facility] [place] [facility] [address] [id number] [place] [address]- 4711 Mar, [facility] [place] [facility] [address] [id number] [place] [address]- 7643 14 Mar, 2012 [facility] [place] [facility] [address] [id number] [place] [address]- 1136 Mar, [facility] [place] [facility] [address] [id number] [place] 8299 Mar, [facility] [place] [facility] [address] [id number] [place] [address]- 3866 Mar, [facility] [place] [facility] [address] [facility] [id number] [place] [address]- 5203 Mar, [facility] [place] [facility] [address] [id number] [place] [address]- 4251 Mar, [facility] [place] [facility] [address] [id number] [place] [address]- 5196 Feb, [facility] [place] [facility] [address] [id number] [place] [address]- 6372 Feb, [facility] [place] [facility] [address] [id number] [place] [address]- 7951 Feb, [facility] [place] [facility] [address] [id number], [place] [address]- 9413 Feb, [facility] [place] [facility] [address] [id number], [place] [address]- 7031 Jan, [facility] [place] [facility] [address] [id number], [place] [address]- 1876 Jan, [facility] [place] [facility] [address] [id number], [place] [address]- 2498 Jan, [facility] [place] [facility] [address] [id number], [place] [address]- 7392 Jan, [facility] [place] [facility] [address] [id number], [place] [address]- 3991 Jan, [facility] [place] [facility] [address] [facility] [id number][place] 7114 Jan, [facility] [place] [facility] [address] [id number], [place] [address]- 8298 Dec, [facility] [place] [facility] [address] [id number] [place] [address]- 6144 Dec, [facility] [address] [id number] [place] [address]- 9736 Nov, [facility] [address] [id number] [place] [address]- 0213 Sep, [facility] [address] [id number] [place] [address]- 6204 August, [facility] [address] [id number] [place] [address]- 3224 August, [facility] [address] [id number] [place] [address]- 1226 August, [facility] [address] [id number] [place] [address]- 7111 August, [facility] [address] [id number] [place] [address]- 6316 August, [facility] [address] [id number] [place] [address]- 8806 Jun, [facility] [address] [id number] [place] [address]- 2053 Jun, [facility] [address] [id number] [place] [address]- 2133 Apr, [facility] [address] [id number] [place] [address]- 6930 Apr, [facility] [address] [id number] [place] [address]- 0326 Mar, [facility] [address] [id number] [place] [address]- 4825 Feb, [facility] [address] [id number] [place] [address]- 1836 Feb, [facility] [address] [id number] [place] [address]- 9897 Feb, [facility] [id number], [place] [address] 2546 17 Jan, 2011 [facility] [id number], [place] [address] Jan, [facility] [id number], [place] [address] Jan, [facility] [id number] [place] [address] Jan, [facility] [id number] [address] May, [facility] [id number] [place] [address] Mar, [facility] [id number] [place] [address] Oct, [facility] [id number] [place] [address] Sep, [facility] [id number] [place] [address] 2546 Mar, [facility] [id number], [place] [address] Jan, [facility] [id number], [place] [address] Jan, [facility] [id number], [place] [address] May, IMMUNIZATIONS No Known Immunizations SOCIAL HISTORY Never Assessed REASON FOR VISIT Repository Rx PLAN OF CARE VITAL SIGNS MEDICATIONS Medication Instructions Dosage Frequency Start Date End Date Duration Status potassium 1 tab Active RESULTS No Results PROCEDURES No Known procedures INSTRUCTIONS MEDICATIONS ADMINISTERED No Known Medications MEDICAL (GENERAL) HISTORY Type Description Date Medical History hypertension Medical History Colposcopy with loop electrode excision of the cervix was performed 06/2012, mild squamous atypia (no definite dyplasia). Performed at [facility] Dr. Joy. Medical History Acute suppurative otitis [...]
--- OUTSIDE RECORDS SUMMARY | 2018-06-10 05:02 | XMS REPORT ---
Author Author SIMA HODGES Organization [facility] Address [address] [place] [address] Care Team Providers Care Warehouse Inventory Clerk Name Role Phone SIMA HODGES Unavailable PROBLEMS Type Condition ICD9-CM Code LMV11-WM Code Onset Dates Condition Status SNOMED Code Problem Anxiety F41.9 Active 16280837 Problem Abnormal glucose R73.09 Active 560664040 Problem Chronic pain due to trauma G89.21 Active 651925623 Problem Hypokalemia E87.6 Active 21738314 Problem Neck pain M54.2 Active 00015006 Problem Neuroforaminal stenosis of spine M99.89 Active 517742196462 Problem Mixed hyperlipidemia E78.2 Active 97740510 Problem Essential hypertension I10 Active 60020235 ALLERGIES No Information ENCOUNTERS Encounter Location Date Diagnosis [facility] [facility] [id number] [place] [address] 18132- 2835 Oct, Lateral epicondylitis, right elbow M77.11 [place] [facility] [id number] [place] [address] 74744- 7423 Oct, Neuroforaminal stenosis of spine M99.89 ; Visit for TB skin test Z11.1 and Essential hypertension I10 [place] [address] [place] [address] 79019- 0604 Oct, [place] [facility] [address] [place] [address] 96956- 0092 Oct, Neuroforaminal stenosis of spine M99.89 [place] [id number] [place] [address] 37910- 0559 Oct, Visit for TB skin test Z11.1 [place] [facility] [id number] [place] [address] 89405- 8210 Oct, Cystitis without hematuria N30.90 [place] [id number] [place] [address] 31578- 8181 28 Sep, 2017 Screening breast examination Z12.39 [place] [id number] [place] [address] 62280- 1707 26 Sep, 2017 Dysuria R30.0 and Cystitis without hematuria N30.90 [place] [address] 14093- 8587 14 Sep, 2017 Essential hypertension I10 and Neuroforaminal stenosis of spine M99.[address] 56686- 8915 Sep, Abnormal glucose R73.[address] 13180- 3878 August, Lateral epicondylitis, right elbow M77.11 [place] [address] 90478- 1742 August, Screen for STD (sexually transmitted disease) Z11.[address] 25837- 7411 August, Neuroforaminal stenosis of spine M99.89 ; Mixed hyperlipidemia E78.2 ; Elevated fasting glucose R73.01 ; Screening mammogram, encounter for Z12.31 and Encounter for well woman exam without gynecological exam Z00.00 [place] [id number] [place] [address] 47124- 9600 August, Neuroforaminal stenosis of spine M99.89 [place] [id number] [place] [address] 39352- 1543 August, Essential hypertension I10 ; Hypokalemia E87.6 and Mixed hyperlipidemia E78.2 [place] [id number] [place] [address] 94558- 4494 Jul, [place] [facility] [address] 73217- 2510 Jul, Neuroforaminal stenosis of spine M99.89 [place] [id number] [place] [address] 14949- 5536 Jul, Lateral epicondylitis, right elbow M77.11 [facility] [id number] [place] [address] 79269- 6719 Jul, [facility] [address] 01628- 3973 Jun, High ankle sprain of right lower extremity, initial encounter S93.431A [facility] [facility] [address] 83070- 8842 Jun, Essential hypertension I10 [place] [id number] [place] [address] 47806- 5219 Jun, [place] [address] 52267- 9663 Jun, [place] [id number] [place] [address] 81351- 7700 Jun, Neuroforaminal stenosis of spine M99.89 [place] [id number] [place] [address] 60682- 6648 Jun, Pain of right upper extremity M79.601 and Essential hypertension I10 [place] [id number] [place] [address] 46374- 6939 Jun, [place] [id number] [place] [address] 38780- 1180 Jun, Dysuria R30.0 ; Acute cystitis with hematuria N30.01 and Screen for STD (sexually transmitted disease) Z11.3 [place] [id number] [place] [address] 40177- 4021 May, Chronic pain due to trauma G89.21 [place] [id number] [place] [address] 77236- 8231 May, Essential hypertension I10 [place] [id number] [place] [address] 87922- 7399 May, Neuroforaminal stenosis of spine M99.89 [place] [id number] [place] [address] 31860- 0726 Apr, Allergic reaction, initial encounter T78.40XA [place] [address] 30363- 7504 Apr, Low back pain, unspecified back pain laterality, unspecified chronicity, with sciatica presence unspecified M54.5 ; Acute cystitis with hematuria N30.01 ; Neuroforaminal stenosis of spine M99.89 ; Bilateral acute serous otitis media, recurrence not specified H65.03 ; Mixed hyperlipidemia E78.2 ; Essential hypertension I10 ; Immunization counseling Z71.89 and Encounter for immunization Z23 [place] [address] 00126- 2988 Apr, Neck pain M54.2 [facility] [facility] [address] 90389- 3378 Mar, Neuroforaminal stenosis of spine M99.89 [place] [id number] [place] [address] 22734- 9115 Mar, Pharyngitis due to other organism J02.8 [place] [address] 16771- 3778 Feb, Neuroforaminal stenosis of spine M99.89 [facility] [facility] [address] 68984- 0610 08 Feb, 2017 UTI (urinary tract infection) N39.0 [place] [address] 46190- 3970 07 Feb, 2017 Recent urinary tract infection Z87.440 ; Neuroforaminal stenosis of spine M99.89 ; Neck pain M54.2 ; Chronic pain due to trauma G89.21 and Recurrent UTI N39.0 [place] [id number] [place] [address] 95206- 1418 Feb, [facility] [id number] [place] [address] 66377- 0265 Jan, Neuroforaminal stenosis of spine M99.89 [facility] [id number] [place] [address] 52731- 8225 28 Dec, 2016 Neuroforaminal stenosis of spine M99.89 [facility] [id number] [place] [address] 39571- 6552 18 Dec, 2016 Acute seasonal allergic rhinitis due to pollen J30.1 [place] [id number] [place] [address] 45914- 7380 08 Dec, 2016 [place] [id number] [place] [address] 10302- 9148 08 Dec, 2016 Acute seasonal allergic rhinitis, unspecified trigger J30.2 ; Allergic conjunctivitis of both eyes H10.13 and Dysfunction of both eustachian tubes H69.83 [place] [id number] [place] [address] 01413- 3969 07 Dec, 2016 [place] [id number] [place] [address] 85914- 4003 06 Dec, 2016 Nevus D22.9 [place] [id number] [place] [address] 24760- 8081 Nov, Chronic pain due to trauma G89.21 and Neuroforaminal stenosis of spine M99.89 [facility] [id number] [place] [address] 79024- 1985 Nov, Neuroforaminal stenosis of spine M99.89 ; Essential hypertension I10 ; Mixed hyperlipidemia E78.2 ; Hypokalemia E87.6 ; Neck pain M54.2 and Nevus D22.9 [facility] [id number] [place] [address] 09894- 7436 Oct, Neuroforaminal stenosis of spine M99.89 [facility] [address] [id number] [address] 8481 Sep, Neuroforaminal stenosis of spine M99.89 [facility] [address] [facility] [id number] [place] [address] 13877- 6388 Sep, [facility] [address] [place] [address] [id number] [place] [address] 89703- 5856 August, [facility] [address] [facility] [id number] [place] [address] 71564- 7820 August, Neck pain M54.2 and Neuroforaminal stenosis of spine M99.89 [facility] [id number] [place] [address] 50903- 8740 August, Routine gynecological examination Z01.419 and Screening breast examination Z12.39 [facility] [id number] [place] [address] 46022- 6864 Jul, [facility] [address] [place] [id number] [place] [address] 10466- 0406 Jul, [facility] [id number] [place] [address] 33203- 5994 Jul, Neuroforaminal stenosis of spine M99.89 [facility] [address] [id number] [place] [address] 55947- 9412 Jul, [facility] [id number] [place] [address] 71221- 2547 Jul, 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 [facility] [address] [facility] [id number], [place] [address] 2546 Jul, [facility] [address] [facility] [id number] [place] [address] 97522- 2546 Jul, [facility] [address] [facility] [id number] [place] [address] 20662- 4294 Jun, Neuroforaminal stenosis of spine M99.89 [place] [id number] [place] [address] 72291- 1489 Jun, Uterine leiomyoma, unspecified location D25.9 and Allergic reaction caused by a drug, initial encounter T78.40XA [place] [id number] [place] [address] 56353- 2861 Jun, [place] [address] 51175- 8131 May, UTI symptoms R39.9 and Pain of right sacroiliac joint M53.[address] 45256- 3708 May, Neuroforaminal stenosis of spine M99.89 [place] [id number] [place] [address] 18601- 6280 May, [place] [address] 03148- 6523 May, Acute mucoid otitis media of left ear H65.112 and Acute non- recurrent maxillary sinusitis J01.00 [place] [id number] [place] [address] 84801- 8377 May, Acute bacterial conjunctivitis of both eyes H10.33 ; Left arm pain M79.602 and Hypokalemia E87.6 [place] [id number] [place] [address] 82794- 1254 Apr, [place] [id number] [place] [address] 12258- 8241 Apr, Neuroforaminal stenosis of spine M99.89 ; Neck pain M54.2 ; Chronic pain due to trauma G89.21 ; Mixed hyperlipidemia E78.2 ; Essential hypertension I10 and Hypokalemia E87.6 [place] [id number] [place] [address] 25402- 7334 Mar, Oral candidiasis B37.0 ; Neuroforaminal stenosis of spine M99.89 ; Neck pain M54.2 and Chronic pain due to trauma G89.21 [facility] [id number] [place] [address] 66424- 5802 Feb, [facility] [id number] [place] [address] 03287- 9365 Feb, [facility] [id number] [place] [address] 86656- 8921 Feb, UTI (urinary tract infection) N39.0 [facility] [id number] [place] [address] 07268- 2618 Feb, Dysuria R30.0 [place] [id number] [place] [address] 74041- 3673 Feb, Dysuria R30.0 [place] [id number] [place] [address] 98608- 0311 Feb, Neuroforaminal stenosis of spine M99.89 ; Neck pain M54.2 ; Essential hypertension I10 ; Chronic pain due to trauma G89.21 ; Dysuria R30.0 ; Abnormal MRI, shoulder R93.8 and Acute cystitis without hematuria N30.00 [facility] [id number] [place] [address] 21745- 8186 Jan, [place] [id number] [place] [address] 24420- 5502 Jan, [facility] [id number] [place] [address] 86137- 1236 Jan, [facility] [id number] [place] [address] 87016- 4161 Jan, Abnormal MRI R93.8 [place] [id number] [place] [address] 29817- 4262 Dec, [facility] [address] [place] [address] 59285 -3146 Dec, Acute pain of left shoulder M25.512 [facility] [address] [id number] [address]- 1353 09 Dec, 2015 [facility] [address] [id number] [address]- 2873 08 Dec, 2015 [facility] [address] [facility] [id number] [address]- 2547 07 Dec, 2015 Acute pain of left shoulder M25.512 [facility] [address] [facility] [id number], [place] [address]- 2806 Nov, [facility] [address] [facility] [id number] [address]- 3809 Nov, Neuroforaminal stenosis of spine M99.89 ; Neck pain M54.2 ; Abnormal mammogram R92.8 ; Essential hypertension I10 and Chronic pain due to trauma G89.21 [facility] [address] [address]- 5890 Nov, [facility] [address] [address]- 7203 Oct, Acute stress disorder F43.0 [facility] [address], [place] [address]- 8714 Oct, [facility] [address], [place] [address]- 3679 Oct, [facility] [address], [place] [address]- 3126 Oct, [facility] [id number] [address]- 3467 Sep, [facility] [id number] [address]- 1983 August, [facility] [id number] [address]- 8686 Jul, Neuroforaminal stenosis of spine M99.89 ; Neck pain M54.2 ; Abnormal mammogram R92.8 and Essential hypertension I10 [facility] [address] [facility] [id number], [place] [address] 2546 Jul, [facility] [address] [facility] [id number] [place] [address] 2546 Jul, [facility] [address] [facility] [id number], [place] [address] 2546 Jul, Abnormal mammogram R92.8 [facility] [id number] [address] 2546 08 Jul, 2015 [facility] [address], [place] [address] 2546 Jul, UTI (urinary tract infection) N39.0 [facility] [address], [place] [address] 2546 Jul, Dysuria R30.0 [facility] [address], [place] [address] 2546 Jun, [facility] [address], [place] [address] 2546 31 Jun, 2015 [facility] [address], [place] [address] 2546 Jun, Hypokalemia E87.6 and Hematuria R31.9 [facility] [address], [place] [address] 2546 Jun, Hypokalemia E87.6 [facility] [id number], [place] [address] 2546 23 Jun, 2015 [facility] [id number], [place] [address] 2546 18 Jun, 2015 Hypokalemia E87.6 [facility] [id number] [address] 2546 18 Jun, 2015 Hypokalemia E87.6 [facility] [address], [place] [address]- 1013 15 Jun, 2015 Neuroforaminal stenosis of spine M99.89 ; Hypokalemia E87.6 ; Neck pain M54.2 ; Essential hypertension I10 ; Mixed hyperlipidemia E78.2 and Screening breast examination Z12.39 [facility] [id number] [place] [address] 95705- 3643 08 Jun, 2015 Dysuria R30.0 ; UTI (urinary tract infection) N39.0 and Hematuria R31.9 [place] [address] 44079- 2774 May, [address] 52982- 1580 18 May, 2015 High risk sexual behavior Z72.51 ; Hypokalemia E87.6 ; Neuroforaminal stenosis of spine M99.89 ; Neck pain M54.2 ; Essential hypertension I10 ; Mixed hyperlipidemia E78.2 ; STD exposure Z20.2 and Concern about STD in female without diagnosis Z71.1 [place] [address] 60942- 1375 16 May, 2015 Neuroforaminal stenosis of spine M99.89 ; Neck pain M54.2 ; Hypokalemia E87.6 ; Essential hypertension I10 and Mixed hyperlipidemia E78.2 [place] [id number] [place] [address] 96486- 3657 May, [facility] [id number] [place] [address] 78854 -7616 08 May, 2015 High risk sexual behavior Z72.51 ; STD exposure Z20.2 and Concern about STD in female without diagnosis Z71.1 [place] [address] 18355- 7353 05 May, 2015 [place] [id number] [place] [address] 29799- 6040 Apr, Neuroforaminal stenosis of spine M99.89 ; Mixed hyperlipidemia E78.2 ; Essential hypertension I10 and Hypokalemia E87.6 [place] [id number] [place] [address] 97598- 8807 Mar, [facility] [id number] [place] [address] 40188- 4399 Mar, Hypokalemia E87.6 [place] [id number] [place] [address] 10551- 9230 Mar, Neuroforaminal stenosis of spine M99.89 ; Mixed hyperlipidemia E78.2 ; Neck pain M54.2 ; Essential hypertension I10 ; Abnormal fasting glucose R73.09 ; Hypokalemia E87.6 and Constipation K59.00 [place] [id number] [place] [address] 28228- 4128 Feb, Neuroforaminal stenosis of spine M99.89 ; Mixed hyperlipidemia E78.2 ; Neck pain M54.2 ; Essential hypertension I10 ; Abnormal fasting glucose R73.09 ; Hypokalemia E87.6 and Constipation K59.00 [place] [id number] [place] [address] 64208- 2411 Feb, Elevated fasting blood sugar R73.01 [place] [id number] [place] [address] 78024- 2427 Feb, Elevated fasting blood sugar R73.01 [place] [id number] [place] [address] 10697- 4489 Feb, Hair loss L65.9 [place] [id number] [place] [address] 35869- 1998 Feb, Sinusitis J32.9 ; Essential hypertension I10 and Hair loss L65.9 [place] [id number] [place] [address] 89263- 5907 Jan, [place] [id number] [place] [address] 96173- 7638 Jan, Essential hypertension I10 ; Neuroforaminal stenosis of spine M99.89 ; Neck pain M54.2 ; Mixed hyperlipidemia E78.2 and Anxiety F41.9 [facility] [id number] [place] [address] 58304- 8977 Jan, [place] [id number] [place] [address] 88797- 8657 Jan, Mixed hyperlipidemia E78.2 ; Essential (primary) hypertension I10 ; Strain of muscle, fascia and tendon at neck level, subsequent encounter S16.1XXD and Tension-type headache, unspecified, not intractable G44.209 [place] [id number] [place] [address] 93146- 4515 Dec, Lumbar back pain 724.2 and Neuroforaminal stenosis of spine 724.00 [place] [id number] [place] [address] 01967- 2935 Nov, [place] [address] 53077- 1216 Nov, Lumbar back pain 724.2 and Neuroforaminal stenosis of spine 724.00 [place] [id number] [place] [address] 11907- 1050 Nov, Edema 782.3 ; Lumbar back pain 724.2 ; Essential hypertension, benign 401.1 ; Hyperlipemia 272.4 ; Neuroforaminal stenosis of spine 724.00 and Post-concussion headache 339.20 [place] [id number] [place] [address] 59179- 7387 Nov, [place] [id number] [place] [address] 06727- 7638 Nov, [place] [id number] [place] [address] 19093- 0004 Oct, Essential hypertension, benign 401.1 [place] [id number] [place] [address] 26712- 8542 Oct, Edema 782.3 ; Lumbar back pain 724.2 ; Essential hypertension, benign 401.1 ; Hyperlipemia 272.4 ; Neuroforaminal stenosis of spine 724.00 and Post-concussion headache 339.20 [facility] [id number] [place] [address] 46011- 5936 Oct, [facility] [id number] [place] [address] 04327- 7070 Oct, Edema 782.3 [facility] [id number] [place] [address] 41217- 6806 Oct, Lumbar back pain 724.2 [facility] [id number] [place] [address] 22521- 8175 Oct, Cervicalgia 723.1 ; Lumbar back pain 724.2 and High risk medication use V58.69 [facility] [id number] [place] [address] 16026- 8978 Sep, [facility] [id number] [place] [address] 21910- 5958 Sep, Lumbar strain 847.2 [facility] [id number] [place] [address] 85243- 0810 August, Edema 782.3 and Eustachian tube dysfunction 381.81 [facility] [address] [place] [address] 69871- 7552 August, [facility] [id number] [place] [address] 80954- 6151 August, Eustachian tube dysfunction 381.81 [facility] [id number] [place] [address] 97788- 5813 Jul, Otalgia 388.70 and Otitis media 382.9 [facility] [id number] [place] [address] 34038- 0850 Jul, [facility] [address], [place] [address]- 1256 Jul, [facility] [id number] [place] [address] 28 Jul, 2014 [facility] [place] [facility] [address] [id number] [place] [address]295 14 Jul, 2014 [facility] [place] [facility] [address] [facility] [id number] [place] [address]- [address]247 13 Jul, 2014 [facility] [place] [facility] [address] [facility] [id number] [place] [address]- 8720 27 Jun, 2014 [facility] [place] [facility] [address] [id number] [place] [address] 8779 27 Jun, 2014 [facility] [place] [facility] [address] [id number] [place] [address]- 2032 16 Jun, 2014 [facility] [place] [facility] [address] [facility] [id number] [place] [address]- 9312 26 May, 2014 [facility] [place] [facility] [address] [facility] [id number] [place] [address] 26 May, 2014 [facility] [place] [facility] [address] [facility] [id number] [place] [address]- 8747 23 May, 2014 [facility] [place] [facility] [id number] [place] [address] 17 May, 2014 [facility] [place] [facility] [id number] [place] [address] 9741 17 May, 2014 [facility] [place] [facility] [address] [facility] [id number] [place] [address]- 8011 11 May, 2014 [facility] [place] [facility] [address] [facility] [id number] [place] [address]- 2540 09 May, 2014 [facility] [place] [facility] [address] [facility] [id number] [place] [address] 05 May, 2014 [facility] [place] [facility] [address] [facility] [id number] [place] [address] 05 May, 2014 [facility] [place] [facility] [address] [id number] [address] May, [facility] [place] [facility] [address] [id number] [place] [address]- 4807 Apr, [facility] [place] [facility] [address] [id number] [place] [address]- 2023 Apr, [facility] [place] [facility] [address] [id number] [place] [address]- 4790 Apr, [facility] [place] [facility] [address] [id number] [place] [address]- 7032 Apr, [facility] [place] [facility] [address] [id number] [place] [address]- 9614 Apr, [facility] [place] [facility] [address] [id number] [place] [address]- 5849 Apr, [facility] [place] [facility] [address] [id number] [place] [address]- 4725 Apr, [facility] [place] [facility] [address] [id number] [place] [address]- 8955 Apr, [facility] [place] [facility] [address] [id number] [place] [address]- 1650 Apr, [facility] [place] [facility] [address] [id number] [place] [address]- 1011 Apr, [facility] [place] [facility] [address] [id number], [place] [address] Apr, [facility] [place] [facility] [address] [id number], [place] [address] Apr, [facility] [place] [facility] [address] [id number] [place] [address] 6985 Apr, [facility] [place] [facility] [address] [id number], [place] [address] Apr, [facility] [place] [facility] [address] [id number] [place] [address] 8077 Apr, [facility] [place] [facility] [address] [id number] [place] [address]- 0921 Mar, [facility] [place] [facility] [address] [id number] [place] [address] Mar, [facility] [place] [facility] [address] [id number] [place] [address]- 0992 Mar, [facility] [place] [facility] [address] [id number] [place] [address] Mar, [facility] [place] [facility] [address] [id number] [place] [address] 0007 Feb, [facility] [place] [facility] [address] [id number] [place] [address]- 6511 Feb, [facility] [place] [facility] [address] [id number] [place] [address]- 7761 Feb, [facility] [place] [facility] [address] [id number] [place] [address]- 3809 Feb, [facility] [place] [facility] [address] [id number] [place] [address]- 4629 Jan, [facility] [place] [facility] [address] [id number] [place] [address]- 4372 Jan, [facility] [place] [facility] [address] [facility] [id number] [place] [address]- 6977 Jan, [facility] [place] [facility] [address] [id number] [place] [address]- 6698 Jan, [facility] [place] [facility] [address] [id number] [place] [address]- 4199 Jan, [facility] [place] [facility] [address] [id number] [place] [address] Jan, [facility] [place] [facility] [address] [facility] [id number] [place] [address]- 8081 Jan, [facility] [place] [facility] [address] [id number] [place] [address] Jan, [facility] [place] [facility] [address] [id number] [place] [address]- 9814 Dec, 2013 [facility] [place] [facility] [address] [id number] [place] [address]- 5173 Dec, [facility] [place] [facility] [address] [id number] [place] [address]- 5068 Dec, [facility] [place] [facility] [address] [id number] [place] [address]- 1461 Dec, [facility] [place] [facility] [address] [id number] [place] [address]- 9280 Oct, [facility] [place] [facility] [address] [id number] [place] [address]- 4276 Oct, [facility] [place] [facility] [address] [id number] [place] [address]- 9199 Oct, [facility] [place] [facility] [address] [id number] [place] [address]- 2432 Oct, [facility] [place] [facility] [address] [id number] [place] [address]- 5248 Oct, [facility] [place] [facility] [address] [id number] [place] [address]- 6941 Oct, [facility] [place] [facility] [address] [id number] [place] [address]- 5526 Oct, [facility] [place] [facility] [address] [id number] [place] [address]- 4260 Oct, [facility] [place] [facility] [address] [id number] [place] [address]- 0089 Sep, [facility] [place] [facility] [address] [id number] [place] [address]- 0602 Sep, [facility] [place] [facility] [address] [id number] [place] [address]- 0286 Sep, [facility] [place] [facility] [address] [id number] [place] [address]- 0573 Sep, [facility] [place] [facility] [address] [id number] [place] [address]- 6623 Sep, [facility] [place] [facility] [address] [id number] [place] [address]- 1610 Sep, [facility] [place] [facility] [address] [id number] [place] [address]- 8024 Sep, [facility] [place] [facility] [address] [id number] [place] [address]- 9699 Sep, [facility] [place] [facility] [address] [id number] [place] [address]- 8336 Sep, [facility] [place] [facility] [address] [id number] [place] [address]- 2871 Sep, [facility] [place] [facility] [address] [id number] [place] [address]- 5907 August, [facility] [place] [facility] [address] [id number] [place] [address]- 5697 August, [facility] [place] [facility] [address] [id number] [place] [address]- 4695 August, [facility] [place] [facility] [address] [id number] [place] [address]- 8898 August, [facility] [place] [facility] [address] [id number] [place] [address]- 1606 August, [facility] [place] [facility] [address] [id number] [place] [address]- 7542 August, [facility] [place] [facility] [address] [id number] [place] [address]- 2122 August, [facility] [place] [facility] [address] [id number] [place] [address]- 9875 August, [facility] [place] [facility] [address] [id number] [place] [address]- 8819 August, [facility] [place] [facility] [address] [id number] [place] [address]- 7532 August, [facility] [place] [facility] [address] [id number] [place] [address]- 8849 August, [facility] [place] [facility] [address] [id number] [place] [address]- 3582 August, [facility] [place] [facility] [address] [id number] [place] [address]- 8958 Jul, [facility] [place] [facility] [address] [id number] [place] [address]- 9999 Jul, [facility] [place] [facility] [address] [id number] [place] [address]- 9201 Jul, [facility] [place] [facility] [address] [id number] [place] [address]- 7698 Jul, [facility] [place] [facility] [address] [id number] [place] [address]- 7322 Jul, [facility] [place] [facility] [address] [id number] [place] [address]- 7986 Jul, [facility] [place] [facility] [address] [id number] [place] [address]- 6775 Jun, [facility] [place] [facility] [address] [id number] [place] [address]- 7863 Jun, [facility] [place] [facility] [address] [id number] [place] [address]- 2732 May, [facility] [place] [facility] [address] [id number] [place] [address]- 6349 May, [facility] [place] [facility] [address] [id number] [place] [address]- 9690 Apr, [facility] [place] [facility] [address] [id number] [place] [address]- 5172 Apr, [facility] [place] [facility] [address] [id number] [place] [address]- 3878 Apr, [facility] [address] [id number] [place] [address]- 6041 Apr, [facility] [place] [facility] [address] [id number] [place] [address]- 9798 Apr, [facility] [place] [facility] [address] [id number] [place] [address]- 0490 Apr, [facility] [place] [facility] [address] [id number] [place] [address]- 4047 Apr, [facility] [place] [facility] [address] [id number] [place] [address]- 9919 Apr, [facility] [place] [facility] [address] [id number] [place] [address]- 0394 Apr, [facility] [place] [facility] [address] [id number] [place] [address]- 5224 Apr, [facility] [place] [facility] [address] [id number] [place] [address]- 8194 Apr, [facility] [place] [facility] [address] [id number] [place] [address]- 5717 Apr, [facility] [place] [facility] [address] [id number] [place] [address]- 4367 Apr, [facility] [place] [facility] [address] [id number], [place] [address]- 9432 Mar, [facility] [place] [facility] [address] [id number], [place] [address]- 2452 Mar, [facility] [place] [facility] [address] [id number] [place] [address]- 3234 Mar, [facility] [place] [facility] [address] [id number], [place] [address]- 1249 Mar, [facility] [place] [facility] [address] [id number] [place] [address]- 1476 Feb, [facility] [place] [facility] [address] [id number] [place] [address]- 3149 27 Feb, 2013 [facility] [place] [facility] [address] [id number] [place] [address]- 3730 08 Feb, 2013 [facility] [place] [facility] [address] [id number] [place] [address]- 0855 08 Feb, 2013 [facility] [place] [facility] [address] [id number] [place] [address]- 7241 14 Jan, 2013 [facility] [place] [facility] [address] [id number] [place] [address]- 6338 14 Jan, 2013 [facility] [place] [facility] [address] [id number] [place] [address]- 8375 Jan, [facility] [place] [facility] [address] [id number] [place] [address]- 1232 Jan, [facility] [place] [facility] [address] [id number] [place] [address]- 9761 10 Jan, 2013 [facility] [place] [facility] [address] [id number] [place] [address]- 4815 10 Jan, 2013 [facility] [place] [facility] [address] [id number] [place] [address]- 0506 09 Jan, 2013 [facility] [place] [facility] [address] [facility] [id number] [place] [address]- 4595 09 Jan, 2013 [facility] [place] [facility] [address] [id number] [place] [address]- 3233 Jan, [facility] [place] [facility] [address] [id number] [place] [address]- 4481 26 Dec, 2012 [facility] [place] [facility] [address] [id number] [place] [address]- 9040 16 Dec, 2012 [facility] [place] [facility] [address] [id number] [place] [address]- 8896 16 Dec, 2012 [facility] [place] [facility] [address] [id number] [place] [address]- 6365 Dec, [facility] [place] [facility] [address] [id number] [place] [address]- 5767 Nov, [facility] [address] [id number] [place] [address]- 5906 Nov, [facility] [address] [id number] [place] [address]- 6020 Nov, [facility] [address] [id number] [place] [address]- 1628 Nov, [facility] [address] [id number] [place] [address]- 9949 Oct, [facility] [address] [id number] [place] [address]- 5061 Sep, [facility] [address] [id number] [place] [address]- 0570 August, [facility] [address] [id number] [place] [address]- 2272 August, [facility] [address] [id number] [place] [address]- 5485 August, [facility] [address] [id number] [place] [address]- 3357 August, [facility] [address] [id number] [place] [address]- 5232 August, [facility] [address] [id number] [place] [address]- 5880 August, [facility] [address] [id number] [place] [address]- 4386 August, [facility] [address] [id number] [place] [address]- 8146 August, [facility] [address] [id number] [place] [address]- 7622 August, [facility] [address] [id number] [place] [address]- 1321 August, [facility] [address] [id number] [place] [address]- 6103 August, [facility] [address] [id number] [place] [address]- 5164 August, [facility] [address] [id number] [place] [address]- 4585 Jul, [facility] [place] [facility] [address] [id number] [place] [address]- 3311 Jul, [facility] [address] [id number] [place] [address]- 6155 Jul, [facility] [address] [id number] [place] [address]- 4097 Jul, [facility] [address] [id number] [place] [address]- 6544 Jul, [facility] [address] [id number] [place] [address]- 3939 Jul, [facility] [address] [id number] [place] [address]- 0725 Jul, [facility] [place] [facility] [address] [id number] [place] [address]- 5874 Jul, [facility] [address] [id number] [place] [address]- 2823 Jul, [facility] [place] [facility] [address] [id number] [place] [address]- 6862 Jul, [facility] [place] [facility] [address] [id number] [place] [address]- 6925 Jul, [facility] [place] [facility] [address] [id number] [place] 4[address] Jun, [facility] [place] [facility] [address] [id number] [place] [address]- 1418 Jun, [facility] [place] [facility] [address] [id number] [place] [address]- 3844 Jun, [facility] [address] [id number] [place] [address]- 5136 Jun, [facility] [place] [facility] [address] [id number] [place] [address]- 7396 May, [facility] [place] [facility] [address] [id number] [place] [address]- 7406 May, [facility] [place] [facility] [address] [id number] [place] [address]- 6602 May, [facility] [place] [facility] [address] [id number] [place] [address]- 3846 May, [facility] [address] [id number] [place] [address]- 9588 May, [facility] [place] [facility] [address] [id number] [place] [address]- 7160 May, [facility] [address] [id number] [place] [address]- 8698 Apr, [facility] [address] [id number] [place] [address]- 0636 Apr, [facility] [address] [id number] [place] [address]- 2467 Apr, [facility] [address] [id number] [place] [address]- 5060 Apr, [facility] [place] [facility] [address] [id number] [place] [address]- 1749 Mar, [facility] [place] [facility] [address] [id number] [place] [address]- 2906 Mar, [facility] [place] [facility] [address] [id number] [place] 9201 Mar, [facility] [place] [facility] [address] [id number] [place] [address]- 0360 14 Mar, 2012 [facility] [place] [facility] [address] [id number] [place] [address]- 9668 14 Mar, 2012 [facility] [place] [facility] [address] [id number] [place] [address]- 0478 Mar, [facility] [place] [facility] [address] [facility] [id number] [place] [address]- 0846 Mar, [facility] [place] [facility] [address] [id number] [place] [address]- 7553 Feb, [facility] [place] [facility] [address] [id number] [place] [address]- 6009 Feb, [facility] [place] [facility] [address] [id number] [place] [address]- 3606 Feb, [facility] [place] [facility] [address] [id number] [place] [address]- 8650 Feb, [facility] [place] [facility] [address] [id number], [place] [address]- 3127 Jan, [facility] [place] [facility] [address] [id number], [place] [address]- 8203 Jan, [facility] [place] [facility] [address] [id number], [place] [address]- 9379 Jan, [facility] [place] [facility] [address] [id number], [place] [address]- 6450 Jan, [facility] [place] [facility] [address] [id number], [place] [address]- 3568 Jan, [facility] [place] [facility] [address] [id number] [place] [address]- 0768 Jan, [facility] [place] [facility] [address] [facility] [id number], [place] [address]- 6544 09 Dec, 2011 [facility] [place] [facility] [address] [id number], [place] [address]- 5746 Dec, [facility] [place] [facility] [address] [id number] [place] [address]- 2014 Nov, [facility] [address] [id number] [place] [address]- 5815 Sep, [facility] [address] [id number] [place] [address]- 9861 August, [facility] [address] [id number] [place] [address]- 4224 August, [facility] [address] [id number] [place] [address]- 8038 August, [facility] [address] [id number] [place] [address]- 4483 August, [facility] [address] [id number] [place] [address]- 6986 August, [facility] [address] [id number] [place] [address]- 4711 Jun, [facility] [address] [id number] [place] [address]- 2291 Jun, [facility] [address] [id number] [place] [address]- 6116 Apr, [facility] [address] [id number] [place] [address]- 5481 Apr, [facility] [address] [id number] [place] [address]- 9653 Mar, [facility] [address] [id number] [place] [address]- 8493 Feb, [facility] [place] [facility] [address] [id number] [place] [address]- 9378 Feb, [facility] [place] [facility] [address] [id number] [place] [address]- 3376 14 Feb, 2011 [facility] [address] [id number] [place] [address]- 4604 17 Jan, 2011 [facility] [id number] [address]- 1661 15 Jan, 2011 [facility] [id number], [place] [address]- 1008 15 Jan, 2011 [facility] [id number], [place] [address]- 7872 14 Jan, 2011 [facility] [id number] [place] [address]- 4572 May, [facility] [id number], [place] [address]- 3136 Mar, [facility] [id number] [place] [address]- 1046 Oct, [facility] [id number] [place] [address] 16093- 5493 Sep, [facility] [id number] [place] [address] 868[address]- 6604 Mar, [facility] [id number]- 5064 Jan, [facility] [id number], [place] [address]- 7122 Jan, [facility] [id number], [place] [address]- 8932 May, IMMUNIZATIONS No Known Immunizations SOCIAL HISTORY Never Assessed REASON FOR VISIT Requests return call PLAN OF CARE VITAL SIGNS MEDICATIONS Unknown Medications RESULTS No Results PROCEDURES No Known procedures INSTRUCTIONS MEDICATIONS ADMINISTERED No Known Medications MEDICAL (GENERAL) HISTORY Type Description Date Medical History hypertension Medical History Colposcopy with loop electrode excision of the cervix was performed 06/2012, mild squamous atypia (no definite dyplasia). Performed at [facility] Dr. Joy. Medical History Acute suppurative [...] cut in index finger sometime in the 1979's. Surgical History colonoscopy 04-28-15 Hospitalization History hospitalizations for surgeries only
--- OUTSIDE RECORDS SUMMARY | 2018-06-10 05:03 | XMS REPORT ---
Author Author SIMA HODGES [facility] Address [address] [place] [address] Care Team Providers Care Return Agent [place] Name Role Phone SIMA HODGES Unavailable PROBLEMS Type Condition ICD9-CM Code THB24-QO Code Onset Dates Condition Status SNOMED Code Problem Anxiety F41.9 Active 71299439 Problem Abnormal glucose R73.09 Active 048951612 Problem Chronic pain due to trauma G89.21 Active 289376981 Problem Hypokalemia E87.6 Active 76561490 Problem Neck pain M54.2 Active 14396645 Problem Neuroforaminal stenosis of spine M99.89 Active 687900434777 Problem Mixed hyperlipidemia E78.2 Active 49190180 Problem Essential hypertension I10 Active 43434994 ALLERGIES No Information ENCOUNTERS Encounter Location Date Diagnosis [facility] [id number] [place] [address] 43897- 4881 Oct, [facility] [id number] [place] [address] 94722- 4462 Oct, [facility] [id number] [place] [address] 70929- 2916 Oct, [facility] [id number] [place] [address] 94072- 1830 Oct, Neuroforaminal stenosis of spine M99.89 [facility] [id number] [place] [address] 33112- 4366 Oct, Visit for TB skin test Z11.1 [facility] [id number] [place] [address] 71199- 8348 Oct, Cystitis without hematuria N30.90 [facility] [id number] [place] [address] 69145- 8955 28 Sep, 2017 Screening breast examination Z12.39 [facility] [id number] [place] [address] 34951- 0220 26 Sep, 2017 Dysuria R30.0 and Cystitis without hematuria N30.90 [facility] [id number] [place] [address] 79595- 6027 14 Sep, 2017 Essential hypertension I10 and Neuroforaminal stenosis of spine M99.89 [facility] [address] 04872- 0770 04 Sep, 2017 Abnormal glucose R73.09 [facility] [facility] [address] 31374- 8881 August, Lateral epicondylitis, right elbow M77.11 [facility] [facility] [address] 98114- 0355 August, Screen for STD (sexually transmitted disease) Z11.3 [facility] [facility] [address] 84279- 4732 August, Neuroforaminal stenosis of spine M99.89 ; Mixed hyperlipidemia E78.2 ; Elevated fasting glucose R73.01 ; Screening mammogram, encounter for Z12.31 and Encounter for well woman exam without gynecological exam Z00.00 [facility] [id number] [place] [address] 48051- 4335 August, Neuroforaminal stenosis of spine M99.89 [facility] [id number] [place] [address] 43192- 0740 August, Essential hypertension I10 ; Hypokalemia E87.6 and Mixed hyperlipidemia E78.2 [facility] [id number] [place] [address] 08048- 0510 Jul, [facility] [id number] [place] [address] 93491- 2013 Jul, Neuroforaminal stenosis of spine M99.89 [facility] [address] [place] [address]- 6436 Jul, Lateral epicondylitis, right elbow M77.11 [facility] [id number] [place] [address] 96881- 7759 Jul, [facility] [id number] [place] [address] 54943- 9769 Jun, High ankle sprain of right lower extremity, initial encounter S93.431A [facility] [address] 62593- 8017 Jun, Essential hypertension I10 [place] [facility] [address] 49289- 1379 Jun, [facility] [id number] [place] [address] 45929- 8060 Jun, [facility] [address] 91816- 1869 Jun, Neuroforaminal stenosis of spine M99.89 [facility] [id number] [place] [address] 43910- 3057 Jun, Pain of right upper extremity M79.601 and Essential hypertension I10 [facility] [id number] [place] [address] 31703- 3947 Jun, [facility] [id number] [place] [address] 37902- 5220 Jun, Dysuria R30.0 ; Acute cystitis with hematuria N30.01 and Screen for STD (sexually transmitted disease) Z11.3 [facility] [id number] [place] [address] 25855- 4887 May, Chronic pain due to trauma G89.21 [facility] [id number] [place] [address] 75144- 4687 May, Essential hypertension I10 [place] [address] 52873- 1988 May, Neuroforaminal stenosis of spine M99.89 [facility] [id number] [place] [address] 60019- 1561 Apr, Allergic reaction, initial encounter T78.40XA [facility] [facility] [id number] [place] [address] 46007- 1801 Apr, Low back pain, unspecified back pain laterality, unspecified chronicity, with sciatica presence unspecified M54.5 ; Acute cystitis with hematuria N30.01 ; Neuroforaminal stenosis of spine M99.89 ; Bilateral acute serous otitis media, recurrence not specified H65.03 ; Mixed hyperlipidemia E78.2 ; Essential hypertension I10 ; Immunization counseling Z71.89 and Encounter for immunization Z23 [facility] [facility] [id number] [place] [address] 25072- 4916 Apr, Neck pain M54.2 [facility] [facility] [address] 80100- 2908 Mar, Neuroforaminal stenosis of spine M99.89 [facility] [id number] [place] [address] 90400- 1813 Mar, Pharyngitis due to other organism J02.8 [facility] [id number] [place] [address] 93244- 8982 Feb, Neuroforaminal stenosis of spine M99.89 [facility] [id number] [place] [address] 67270- 4839 08 Feb, 2017 UTI (urinary tract infection) N39.0 [facility] [id number] [place] [address] 79361- 8932 07 Feb, 2017 Recent urinary tract infection Z87.440 ; Neuroforaminal stenosis of spine M99.89 ; Neck pain M54.2 ; Chronic pain due to trauma G89.21 and Recurrent UTI N39.0 [facility] [facility] [id number] [place] [address] 96161- 4843 Feb, [facility] [id number] [place] [address] 01340- 5393 Jan, Neuroforaminal stenosis of spine M99.89 [facility] [facility] [address] 78258- 3808 Dec, Neuroforaminal stenosis of spine M99.89 [facility] [id number] [place] [address] 11455- 1457 18 Dec, 2016 Acute seasonal allergic rhinitis due to pollen J30.1 [facility] [id number] [place] [address] 12315- 4764 08 Dec, 2016 [place] [address] 69106- 2386 08 Dec, 2016 Acute seasonal allergic rhinitis, unspecified trigger J30.2 ; Allergic conjunctivitis of both eyes H10.13 and Dysfunction of both eustachian tubes H69.83 [place] [address] 64284- 6752 Dec, [facility] [facility] [address] 75777- 0108 Dec, Nevus D22.9 [facility] [facility] [address] 30671- 1813 Nov, Chronic pain due to trauma G89.21 and Neuroforaminal stenosis of spine M99.89 [facility] [id number] [place] [address] 81864- 0245 Nov, Neuroforaminal stenosis of spine M99.89 ; Essential hypertension I10 ; Mixed hyperlipidemia E78.2 ; Hypokalemia E87.6 ; Neck pain M54.2 and Nevus D22.9 [facility] [id number] [place] [address] 64479- 1782 Oct, Neuroforaminal stenosis of spine M99.89 [facility] [id number] [place] [address] 56147- 6477 Sep, Neuroforaminal stenosis of spine M99.89 [facility] [address] [id number] [address]- 6059 Sep, [facility] [address] [facility] [id number] [place] [address] 37528- 9496 August, [facility] [address] [facility] [id number] [place] [address] 60787- 7823 August, Neck pain M54.2 and Neuroforaminal stenosis of spine M99.89 [facility] [address] [id number], [place] [address]- 2427 August, Routine gynecological examination Z01.419 and Screening breast examination Z12.39 [facility] [address] [facility] [id number] [place] [address] 65568- 2407 Jul, [facility] [id number] [place] [address] 30593- 1129 Jul, [facility] [id number] [place] [address] 96347- 0226 Jul, Neuroforaminal stenosis of spine M99.89 [facility] [address] [facility] [id number] [place] [address] 19162- 1982 Jul, [facility] [address] [facility] [id number] [place] [address] 11983- 5725 Jul, 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 [facility] [address] [facility] [id number] [place] [address] 06367 2544 Jul, [facility] [address] [facility] [id number], [place] [address]- 2540 Jul, [facility] [address] [facility] [id number] [place] [address] 37457- 5115 Jun, Neuroforaminal stenosis of spine M99.89 [facility] [address] [facility] [id number], [place] [address]- 2546 Jun, Uterine leiomyoma, unspecified location D25.9 and Allergic reaction caused by a drug, initial encounter T78.40XA [facility] [facility] [id number] [place] [address] 61104- 8953 Jun, [facility] [address] 70220- 9025 May, UTI symptoms R39.9 and Pain of right sacroiliac joint M53.3 [place] [address] 00535- 9564 May, Neuroforaminal stenosis of spine M99.89 [place] [address] 57714- 2608 May, [place] [address] 54971- 8619 May, Acute mucoid otitis media of left ear H65.112 and Acute non- recurrent maxillary sinusitis J01.00 [place] [address] 37024- 4344 May, Acute bacterial conjunctivitis of both eyes H10.33 ; Left arm pain M79.602 and Hypokalemia E87.6 [facility] [facility] [id number] [place] [address] 23386- 2039 Apr, [facility] [id number] [place] [address] 75258- 4353 Apr, Neuroforaminal stenosis of spine M99.89 ; Neck pain M54.2 ; Chronic pain due to trauma G89.21 ; Mixed hyperlipidemia E78.2 ; Essential hypertension I10 and Hypokalemia E87.6 [place] [address] 52272- 7573 Mar, Oral candidiasis B37.0 ; Neuroforaminal stenosis of spine M99.89 ; Neck pain M54.2 and Chronic pain due to trauma G89.21 [place] [address] 05948- 3821 Feb, [facility] [address] [address]- 7803 Feb, [facility] [id number] [place] [address] 98521- 5097 Feb, UTI (urinary tract infection) N39.0 [facility] [id number] [place] [address] 62118- 9765 Feb, Dysuria R30.0 [facility] [id number] [place] [address] 05785- 7127 Feb, Dysuria R30.0 [facility] [id number] [place] [address] 19117- 7417 Feb, Neuroforaminal stenosis of spine M99.89 ; Neck pain M54.2 ; Essential hypertension I10 ; Chronic pain due to trauma G89.21 ; Dysuria R30.0 ; Abnormal MRI, shoulder R93.8 and Acute cystitis without hematuria N30.00 [facility] [id number] [place] [address] 53899- 1648 Jan, [facility] [id number] [place] [address] 31063- 8418 Jan, [facility] [id number] [place] [address] 83050- 6945 Jan, [facility] [id number] [place] [address] 73140- 5105 Jan, Abnormal MRI R93.8 [facility] [id number] [place] [address] 46642- 4416 Dec, [facility] [id number] [place] [address] 70001 -9498 Dec, Acute pain of left shoulder M25.512 [facility] [id number] [place] [address] 69527- 6570 Dec, [facility] [id number] [address]- 1212 08 Dec, 2015 [facility] [id number] [place] [address] 64692- 4169 07 Dec, 2015 Acute pain of left shoulder M25.512 [facility] [id number] [address]- 0046 Nov, [facility] [id number] [place] [address] 82740- 4992 Nov, Neuroforaminal stenosis of spine M99.89 ; Neck pain M54.2 ; Abnormal mammogram R92.8 ; Essential hypertension I10 and Chronic pain due to trauma G89.21 [facility] [id number] [place] [address] 41497- 0207 Nov, [facility] [id number] [place] [address] 38930- 0544 Oct, Acute stress disorder F43.0 [facility] [id number] [address]- 1753 Oct, [facility] [id number] [place] [address] 35495- 9007 Oct, [facility] [address] [address]- 9355 Oct, [facility] [address] [address]- 0570 Sep, [facility] [address] [address]- 8117 August, [facility] [id number] [place] [address] 63427- 3337 Jul, Neuroforaminal stenosis of spine M99.89 ; Neck pain M54.2 ; Abnormal mammogram R92.8 and Essential hypertension I10 [facility] [address] [address]- 1193 Jul, [facility] [address] [address]- 8814 Jul, [facility] [id number] [place] [address] 47396- 0366 Jul, Abnormal mammogram R92.8 [facility] [address] [address] 2546 Jul, [facility] [id number] [place] [address] 26206- 7097 Jul, UTI (urinary tract infection) N39.0 [facility] [id number] [place] [address] 45075- 0465 Jul, Dysuria R30.0 [facility] [id number] [place] [address] 13293- 3346 Jun, [facility] [id number] [place] [address] 05382- 1271 Jun, [facility] [id number] [place] [address] 29658 2547 Jun, Hypokalemia E87.6 and Hematuria R31.9 [facility] [id number] [place] [address] 02747 2540 Jun, Hypokalemia E87.6 [facility] [id number] [place] [address] 22222 2546 Jun, [facility] [id number] [place] [address] 00830 2543 18 Jun, 2015 Hypokalemia E87.6 [facility] [id number] [place] [address] 55588 2546 18 Jun, 2015 Hypokalemia E87.6 [facility] [address] [address]- 2546 15 Jun, 2015 Neuroforaminal stenosis of spine M99.89 ; Hypokalemia E87.6 ; Neck pain M54.2 ; Essential hypertension I10 ; Mixed hyperlipidemia E78.2 and Screening breast examination Z12.39 [facility] [id number] [place] [address] 94775- 6519 Jun, Dysuria R30.0 ; UTI (urinary tract infection) N39.0 and Hematuria R31.9 [place] [address] 18945- 5673 May, [facility] [address] 66378- 1971 May, High risk sexual behavior Z72.51 ; Hypokalemia E87.6 ; Neuroforaminal stenosis of spine M99.89 ; Neck pain M54.2 ; Essential hypertension I10 ; Mixed hyperlipidemia E78.2 ; STD exposure Z20.2 and Concern about STD in female without diagnosis Z71.1 [place] [address] 02147- 2805 16 May, 2015 Neuroforaminal stenosis of spine M99.89 ; Neck pain M54.2 ; Hypokalemia E87.6 ; Essential hypertension I10 and Mixed hyperlipidemia E78.2 [place] [address] 10381- 4384 May, [facility] [id number] [place] [address] 10849 -8140 May, High risk sexual behavior Z72.51 ; STD exposure Z20.2 and Concern about STD in female without diagnosis Z71.1 [place] [address] 57037- 1237 May, [facility] [address] 23384- 5021 Apr, Neuroforaminal stenosis of spine M99.89 ; Mixed hyperlipidemia E78.2 ; Essential hypertension I10 and Hypokalemia E87.6 [place] [address] 68895- 5783 Mar, [facility] [facility] [id number] [place] [address] 64341- 4765 Mar, Hypokalemia E87.6 [facility] [id number] [place] [address] 98391- 9249 Mar, Neuroforaminal stenosis of spine M99.89 ; Mixed hyperlipidemia E78.2 ; Neck pain M54.2 ; Essential hypertension I10 ; Abnormal fasting glucose R73.09 ; Hypokalemia E87.6 and Constipation K59.00 [place] [id number] [place] [address] 49611- 5970 Feb, Neuroforaminal stenosis of spine M99.89 ; Mixed hyperlipidemia E78.2 ; Neck pain M54.2 ; Essential hypertension I10 ; Abnormal fasting glucose R73.09 ; Hypokalemia E87.6 and Constipation K59.00 [place] [address] 12190- 7497 Feb, Elevated fasting blood sugar R73.01 [place] [address] 46173- 3413 Feb, Elevated fasting blood sugar R73.01 [place] [address] 15331- 5973 Feb, Hair loss L65.9 [place] [id number] [place] [address] 50612- 3457 Feb, Sinusitis J32.9 ; Essential hypertension I10 and Hair loss L65.9 [place] [id number] [place] [address] 19625- 9210 Jan, [place] [address] 35624- 1274 Jan, Essential hypertension I10 ; Neuroforaminal stenosis of spine M99.89 ; Neck pain M54.2 ; Mixed hyperlipidemia E78.2 and Anxiety F41.9 [place] [address] 31264- 4781 Jan, [facility] [id number] [place] [address] 27429- 0472 Jan, Mixed hyperlipidemia E78.2 ; Essential (primary) hypertension I10 ; Strain of muscle, fascia and tendon at neck level, subsequent encounter S16.1XXD and Tension-type headache, unspecified, not intractable G44.209 [place] [id number] [place] [address] 91835- 9121 Dec, Lumbar back pain 724.2 and Neuroforaminal stenosis of spine 724.00 [place] [id number] [place] [address] 51454- 2951 Nov, [place] [facility] [id number] [place] [address] 63501- 7917 Nov, Lumbar back pain 724.2 and Neuroforaminal stenosis of spine 724.00 [place] [id number] [place] [address] 85440- 5628 Nov, Edema 782.3 ; Lumbar back pain 724.2 ; Essential hypertension, benign 401.1 ; Hyperlipemia 272.4 ; Neuroforaminal stenosis of spine 724.00 and Post-concussion headache 339.20 [place] [id number] [place] [address] 20714- 1332 Nov, [place] [address] [address]- 4298 Nov, [place] [facility] [id number] [place] [address] 53307- 9113 Oct, Essential hypertension, benign 401.1 [place] [id number] [place] [address] 42761- 6434 Oct, Edema 782.3 ; Lumbar back pain 724.2 ; Essential hypertension, benign 401.1 ; Hyperlipemia 272.4 ; Neuroforaminal stenosis of spine 724.00 and Post-concussion headache 339.20 [place] [id number] [address]- 1886 Oct, [facility] [address] [address]- 6201 Oct, Edema 782.3 [facility] [id number] [place] [address] 88930- 6812 Oct, Lumbar back pain 724.2 [facility] [id number] [place] [address] 47929- 9091 Oct, Cervicalgia 723.1 ; Lumbar back pain 724.2 and High risk medication use V58.69 [facility] [id number] [place] [address] 94645- 7892 Sep, [facility] [id number] [place] [address] 57407- 2808 Sep, Lumbar strain 847.2 [facility] [id number] [place] [address] 78489- 1039 August, Edema 782.3 and Eustachian tube dysfunction 381.81 [facility] [id number] [place] [address] 82589- 5175 August, [facility] [id number] [place] [address] 77078- 9886 August, Eustachian tube dysfunction 381.81 [facility] [address] [address]- 2651 Jul, Otalgia 388.70 and Otitis media 382.9 [facility] [address] [address]- 1986 Jul, [facility] [id number] [place] [address] 70550- 6880 Jul, [facility] [id number] [address] Jul, [facility] [id number] [place] [address] 14 Jul, 2014 [facility] [place] [facility] [address] [id number] [place] [address] 13 Jul, 2014 [facility] [place] [facility] [address] [id number] [place] [address] 27 Jun, 2014 [facility] [place] [facility] [address] [facility] [id number] [place] [address] 27 Jun, 2014 [facility] [place] [facility] [address] [id number] [place] [address] 16 Jun, 2014 [facility] [place] [facility] [address] [id number] [place] [address] May, 2014 [facility] [place] [facility] [address] [facility] [id number] [place] [address] May, 2014 [facility] [place] [facility] [address] [facility] [id number] [place] [address] May, 2014 [facility] [place] [facility] [address] [facility] [id number] [place] [address] May, 2014 [facility] [place] [facility] [address] [facility] [id number] [place] [address] May, 2014 [facility] [place] [facility] [address] [facility] [id number] [place] [address] May, 2014 [facility] [place] [facility] [address] [facility] [id number] [place] [address] May, 2014 [facility] [place] [facility] [address] [facility] [id number] [place] [address]- [address] May, 2014 [facility] [place] [facility] [address] [facility] [id number] [place] [address] May, 2014 [facility] [place] [facility] [address] [facility] [id number] [place] [address] May, 2014 [facility] [place] [facility] [address] [facility] [id number] [place] [id number] Apr, [facility] [place] [facility] [address] [id number] [place] [address] Apr, [facility] [place] [facility] [address] [id number] [place] [address] Apr, [facility] [place] [facility] [address] [id number] [place] [address] Apr, [facility] [place] [facility] [address] [id number] [place] [address] Apr, [facility] [place] [facility] [address] [id number] [place] [address] Apr, [facility] [place] [facility] [address] [id number] [place] [address] Apr, [facility] [place] [facility] [address] [id number] [place] [address] 3992 Apr, [facility] [place] [facility] [address] [id number] [place] [address] 6[address] Apr, [facility] [place] [facility] [address] [id number] [place] [address] 0023 Apr, [facility] [place] [facility] [address] [id number] [place] [address] 0730 Apr, [facility] [place] [facility] [address] [id number] [place] [address] 0759 Apr, [facility] [place] [facility] [address] [id number] [place] [address] 6230 Apr, [facility] [place] [facility] [address] [id number] [place] [address]- 8181 Apr, [facility] [place] [facility] [address] [id number] [place] [address]- 6802 Apr, [facility] [place] [facility] [address] [id number] [place] [address]- 0625 Mar, [facility] [place] [facility] [address] [id number] [place] [address]- 7704 Mar, [facility] [place] [facility] [address] [id number] [place] [address] 4974 Mar, [facility] [place] [facility] [address] [id number] [place] [address] Mar, [facility] [place] [facility] [address] [id number] [place] [address] Feb, [facility] [place] [facility] [address] [id number] [place] [address]- 5860 Feb, [facility] [place] [facility] [address] [id number] [place] [address] Feb, [facility] [place] [facility] [address] [id number] [place] [address]- 5361 Feb, [facility] [place] [facility] [address] [id number] [place] [address]- 8113 Jan, [facility] [place] [facility] [address] [id number], [place] [address] Jan, [facility] [place] [facility] [address] [id number] [place] [address]- 4623 Jan, [facility] [place] [facility] [address] [facility] [id number], [place] [address] 9369 Jan, [facility] [place] [facility] [address] [id number] [place] [address]- 3681 Jan, [facility] [place] [facility] [address] [id number], [place] [address]- 0881 Jan, [facility] [place] [facility] [address] [id number] Jan, [facility] [place] [facility] [address] [id number], [place] [address]- 3658 Jan, [facility] [place] [facility] [address] [id number] [address] Dec, [facility] [place] [facility] [address] [id number] [place] [address]- 4976 29 Dec, 2013 [facility] [place] [facility] [address] [id number] [place] [address]- 4306 04 Dec, 2013 [facility] [place] [facility] [address] [id number] [place] [address] 04 Dec, 2013 [facility] [place] [facility] [address] [id number] [place] [address]- 9564 Oct, 2013 [facility] [place] [facility] [address] [id number] [place] [address]- 3776 Oct, 2013 [facility] [place] [facility] [address] [id number] [place] [address]- 0151 Oct, [facility] [place] [facility] [address] [id number] [place] [address]- 0805 Oct, 2013 [facility] [place] [facility] [address] [id number] [place] [address]- 3708 Oct, [facility] [place] [facility] [address] [id number] [place] [address]- 1775 Oct, [facility] [place] [facility] [address] [id number] [place] [address]- 8678 Oct, [facility] [place] [facility] [address] [id number] [place] [address]- 9144 Oct, [facility] [place] [facility] [address] [id number] [place] [address]- 4386 Sep, [facility] [place] [facility] [address] [id number] [place] [address]- 3872 Sep, [facility] [place] [facility] [address] [id number] [place] [address]- 0626 Sep, [facility] [place] [facility] [address] [id number] [place] [address]- 4715 Sep, [facility] [place] [facility] [address] [id number] [place] [address]- 7750 Sep, [facility] [place] [facility] [address] [id number] [place] [address]- 3202 Sep, [facility] [place] [facility] [address] [id number] [place] [address]- 9010 Sep, [facility] [place] [facility] [address] [id number] [place] [address]- 8175 Sep, [facility] [place] [facility] [address] [id number] [place] [address]- 6308 Sep, [facility] [place] [facility] [address] [id number] [place] [address]- 9783 Sep, [facility] [place] [facility] [address] [id number] [place] [address]- 7117 August, [facility] [place] [facility] [address] [id number] [place] [address]- 5089 August, [facility] [place] [facility] [address] [id number] [place] [address]- 9597 August, [facility] [place] [facility] [address] [id number] [place] [address]- 7120 August, [facility] [place] [facility] [address] [id number] [place] [address]- 2055 August, [facility] [place] [facility] [address] [id number] [place] [address]- 6990 August, [facility] [place] [facility] [address] [id number] [place] [address]- 0125 August, [facility] [place] [facility] [address] [id number] [place] [address]- 4337 August, [facility] [place] [facility] [address] [id number] [place] [address]- 0481 August, [facility] [place] [facility] [address] [id number] [place] [address]- 1374 August, [facility] [place] [facility] [address] [id number] [place] [address]- 9833 August, [facility] [place] [facility] [address] [id number] [place] [address]- 7092 August, [facility] [place] [facility] [address] [id number] [place] [address]- 5726 Jul, [facility] [place] [facility] [address] [id number] [place] [address]- 7716 Jul, [facility] [place] [facility] [address] [id number] [place] [address]- 3492 Jul, [facility] [place] [facility] [address] [id number] [place] [address]- 0376 Jul, [facility] [place] [facility] [address] [id number] [place] [address]- 1933 Jul, [facility] [place] [facility] [address] [id number] [place] [address]- 6659 Jul, [facility] [place] [facility] [address] [id number] [place] [address]- 9987 Jun, [facility] [place] [facility] [address] [id number] [place] [address]- 9772 Jun, [facility] [place] [facility] [address] [id number] [place] [address]- 6103 May, [facility] [place] [facility] [address] [id number] [place] [address]- 5993 May, [facility] [place] [facility] [address] [id number] [place] [address]- 0035 Apr, [facility] [place] [facility] [address] [id number] [place] [address]- 8032 Apr, [facility] [place] [facility] [address] [id number] [place] [address]- 8940 Apr, [facility] [place] [facility] [address] [id number] [place] [address]- 1698 Apr, [facility] [address] [id number] [place] [address]- 5412 Apr, [facility] [place] [facility] [address] [id number] [place] [address]- 9883 Apr, [facility] [place] [facility] [address] [id number] [place] [address]- 8890 Apr, [facility] [place] [facility] [address] [id number] [place] [address]- 6247 Apr, [facility] [place] [facility] [address] [id number] [place] [address]- 4746 Apr, [facility] [place] [facility] [address] [id number] [place] [address]- 1830 Apr, [facility] [place] [facility] [address] [id number] [place] [address]- 7716 Apr, [facility] [place] [facility] [address] [id number] [place] [address]- 1254 Apr, [facility] [place] [facility] [address] [id number] [place] [address]- 9227 Apr, [facility] [place] [facility] [address] [id number], [place] [address]- 0443 Mar, [facility] [place] [facility] [address] [id number], [place] [address]- 6715 Mar, [facility] [place] [facility] [address] [id number], [place] [address]- 0011 Mar, [facility] [place] [facility] [address] [id number] [place] [address]- 8041 Mar, [facility] [place] [facility] [address] [id number] [place] [address]- 6116 Feb, [facility] [place] [facility] [address] [id number], [place] [address]- 8385 Feb, [facility] [place] [facility] [address] [id number], [place] [address]- 9725 08 Feb, 2013 [facility] [place] [facility] [address] [id number] [place] [address]- 9565 08 Feb, 2013 [facility] [place] [facility] [address] [id number] [place] [address]- 0708 14 Jan, 2013 [facility] [place] [facility] [address] [id number] [place] [address]- 3499 14 Jan, 2013 [facility] [place] [facility] [address] [id number] [place] [address]- 3968 Jan, [facility] [place] [facility] [address] [id number] [place] [address]- 6335 Jan, [facility] [place] [facility] [address] [id number] [place] [address]- 3451 Jan, [facility] [place] [facility] [address] [id number] [place] [address]- 8555 Jan, [facility] [place] [facility] [address] [id number] [place] [address]- 5362 Jan, [facility] [place] [facility] [address] [facility] [id number] [place] [address]- 8499 Jan, [facility] [place] [facility] [address] [facility] [id number] [place] [address]- 9207 Jan, [facility] [place] [facility] [address] [id number], [place] [address]- 2776 26 Dec, 2012 [facility] [place] [facility] [address] [id number], [place] [address]- 9350 16 Dec, 2012 [facility] [place] [facility] [address] [id number] [place] [address]- 7485 16 Dec, 2012 [facility] [place] [facility] [address] [id number] [place] [address]- 7033 13 Dec, 2012 [facility] [place] [facility] [address] [facility] [id number] [place] [address]- 9747 17 Nov, 2012 [facility] [place] [facility] [address] [id number] [place] [address]- 5876 Nov, [facility] [address] [id number] [place] [address]- 1616 Nov, [facility] [place] [facility] [address] [id number] [place] [address] 2546 Nov, [facility] [address] [id number] [place] [address]- 7687 Oct, [facility] [address] [id number] [place] [address]- 5858 Sep, [facility] [address] [id number] [place] [address]- 5847 August, [facility] [address] [id number] [place] [address]- 7191 August, [facility] [address] [id number] [place] [address]- 3762 August, [facility] [address] [id number] [place] [address]- 4815 August, [facility] [address] [id number] [place] [address]- 3099 August, [facility] [address] [id number] [place] [address]- 8100 August, [facility] [address] [id number] [place] [address]- 2010 August, [facility] [address] [id number] [place] [address]- 4593 August, [facility] [place] [facility] [address] [id number] [place] [address]- 6046 August, [facility] [place] [facility] [address] [id number] [place] [address]- 2546 August, [facility] [address] [id number] [place] [address]- 9001 August, [facility] [address] [id number] [place] [address]- 4204 August, [facility] [address] [id number] [place] [address]- 7381 Jul, [facility] [address] [id number] [place] [address]- 2058 Jul, [facility] [place] [facility] [address] [id number] [place] [address]- 7918 Jul, [facility] [address] [id number] [place] [address]- 1197 Jul, [facility] [address] [id number] [place] [address]- 1370 Jul, [facility] [address] [id number] [place] [address]- 8434 Jul, [facility] [place] [facility] [address] [id number] [place] [address]- 5672 Jul, [facility] [place] [facility] [address] [id number] [place] [address]- 7709 Jul, [facility] [place] [facility] [address] [id number] [place] [address]- 3318 Jul, [facility] [place] [facility] [address] [id number] [place] [address]- 8234 Jul, [facility] [place] [facility] [address] [id number], [place] [address]- 6053 Jul, [facility] [place] [facility] [address] [id number] [place] [address]- 3584 Jun, [facility] [place] [facility] [address] [id number] [place] [address]- 3718 Jun, [facility] [place] [facility] [address] [id number] [place] [address]- 2125 Jun, [facility] [place] [facility] [address] [id number] [place] [address]- 3286 Jun, [facility] [address] [id number] [place] [address]- 9236 28 May, 2012 [facility] [place] [facility] [address] [id number] [place] [address] 2546 14 May, 2012 [facility] [place] [facility] [address] [id number] [place] [address]- 2546 05 May, 2012 [facility] [place] [facility] [address] [id number] [place] [address]- 2546 May, [facility] [address] [id number] [place] [address]- 0716 May, [facility] [place] [facility] [address] [id number] [place] [address]- 2546 May, [facility] [address] [id number] [place] [address]- 1326 Apr, [facility] [address] [id number] [place] [address]- 7791 Apr, [facility] [place] [facility] [address] [id number] [place] [address]- 8858 30 Apr, 2012 [facility] [address] [id number] [place] [address]- 3153 Apr, [facility] [place] [facility] [address] [id number] [place] [address] 2546 15 Mar, 2012 [facility] [place] [facility] [address] [id number] [place] [address] 2546 14 Mar, 2012 [facility] [place] [facility] [address] [id number] [place] [address] 2546 14 Mar, 2012 [facility] [place] [facility] [address] [id number] [place] [address] 2546 14 Mar, 2012 [facility] [place] [facility] [address] [id number] [place] [address]- 2546 Mar, [facility] [place] [facility] [address] [id number] [place] [address]- 3437 Mar, [facility] [place] [facility] [address] [id number] [place] [address]- 4037 Mar, [facility] [place] [facility] [address] [id number] [place] [address]- 9889 Feb, [facility] [place] [facility] [address] [id number] [place] [address]- 2983 Feb, [facility] [place] [facility] [address] [id number] [place] [address]- 4098 Feb, [facility] [place] [facility] [address] [id number] [place] [address]- 1500 Feb, [facility] [place] [facility] [address] [id number] [place] [address]- 5909 Jan, [facility] [place] [facility] [address] [id number] [place] [address]- 2359 Jan, [facility] [place] [facility] [address] [id number] [place] [address]- 8534 Jan, [facility] [place] [facility] [address] [id number] [place] [address]- 6869 Jan, [facility] [place] [facility] [address] [id number] [place] [address]- 1398 Jan, [facility] [place] [facility] [address] [id number], [place] [address]- 4657 Jan, [facility] [place] [facility] [address] [id number] [place] [address]- 6601 Dec, [facility] [place] [facility] [address] [id number] [place] [address]- 8484 Dec, [facility] [place] [facility] [address] [id number] [place] [address]- 7334 Nov, [facility] [place] [facility] [address] [id number] [place] [address]- 1856 Sep, [facility] [address] [id number] [place] [address]- 0361 August, [facility] [place] [facility] [address] [id number] [place] [address]- 6815 August, [facility] [place] [facility] [address] [id number] [place] [address]- 4163 August, [facility] [place] [facility] [address] [id number] [place] [address]- 4522 August, [facility] [place] [facility] [address] [id number] [place] [address]- 9653 August, [facility] [place] [facility] [address] [id number] [place] [address]- 7911 Jun, [facility] [place] [facility] [address] [id number] [place] [address]- 2824 Jun, [facility] [place] [facility] [address] [id number] [place] [address]- 1424 Apr, [facility] [place] [facility] [address] [id number] [place] [address]- 3406 Apr, [facility] [place] [facility] [address] [id number] [place] [address]- 9529 Mar, [facility] [place] [facility] [address] [id number] [place] [address]- 0369 Feb, [facility] [place] [facility] [address] [id number] [place] [address]- 0817 Feb, [facility] [place] [facility] [address] [id number] [place] [address]- 8504 14 Feb, 2011 [facility] [place] [facility] [address] [id number] [place] [address]- 6072 17 Jan, 2011 [facility] [place] [facility] [address] [id number] [place] [address]- 8256 15 Jan, 2011 [facility] [place] [facility] [id number], [place] [address]- 3066 Jan, [facility] [id number], [place] [address]- 2891 14 Jan, 2011 [facility] [id number], [place] [address]- 3696 May, [facility] [id number] [place] [address] 14566- 9552 Mar, [facility] [id number] [place] [address] 46708- 9286 Oct, [facility] [id number] [place] [address] 37713- 3444 Sep, [facility] [id number] [place] [address] 53787- 3846 Mar, [facility] [id number] [place] [address] 28185- 6676 Jan, [facility] [id number] [place] [address] [phone] Jan, [facility] [id number] [place] [address] [phone] May, IMMUNIZATIONS No Known Immunizations SOCIAL HISTORY Never Assessed REASON FOR VISIT bp check, GINI Trujillo PLAN OF CARE VITAL SIGNS Height 62 in 2017-06-30 Blood pressure systolic 118 mmHg 2017-06-30 Blood pressure diastolic 88 mmHg 2017-06-30 MEDICATIONS Unknown Medications RESULTS No Results PROCEDURES No Known procedures INSTRUCTIONS MEDICATIONS ADMINISTERED No Known Medications MEDICAL (GENERAL) HISTORY Type Description Date Medical History hypertension Medical History Colposcopy with loop electrode excision of the cervix was performed 06/2012, mild squamous atypia (no definite dyplasia). Performed at [facility] Dr. Joy. Medical History Acute [...]
--- OUTSIDE RECORDS SUMMARY | 2018-06-10 05:04 | XMS REPORT ---
Author Author SIMA HODGES [facility] Address [address] [place] [address] Care Team Providers Care Supervisor Frame Sample And Pattern Name Role Phone SIMA HODGES Unavailable PROBLEMS Type Condition ICD9-CM Code GIH29-DD Code Onset Dates Condition Status SNOMED Code Problem Anxiety F41.9 Active 30889151 Problem Abnormal glucose R73.09 Active 326869718 Problem Chronic pain due to trauma G89.21 Active 204667207 Problem Hypokalemia E87.6 Active 48818242 Problem Neck pain M54.2 Active 46937990 Problem Neuroforaminal stenosis of spine M99.89 Active 286403915466 Problem Mixed hyperlipidemia E78.2 Active 23952140 Problem Essential hypertension I10 Active [id number] ALLERGIES No Information ENCOUNTERS Encounter Location Date Diagnosis [facility], [place] [id number] [place] [address] 02101- 4694 Oct, [facility], [place] [id number] [place] [address] 72882- 1663 Oct, [facility], [place] [id number] [place] [address] 39488- 4327 Oct, [facility], [place] [id number] [place] [address] 69776- 5272 Oct, Neuroforaminal stenosis of spine M99.89 [facility], [place] [id number] [place] [address] 64967- 9520 Oct, Visit for TB skin test Z11.1 [facility], [place] [id number] [place] [address] 05778- 8490 Oct, Cystitis without hematuria N30.90 [facility], [place] [id number] [place] [address] 40811- 4472 28 Sep, 2017 Screening breast examination Z12.39 [facility] [id number] [place] [address] 23021- 9476 26 Sep, 2017 Dysuria R30.0 and Cystitis without hematuria N30.90 [facility] [id number] [place] [address] 52083- 1174 14 Sep, 2017 Essential hypertension I10 and Neuroforaminal stenosis of spine M99.89 [facility] [address] 33464- 9480 04 Sep, 2017 Abnormal glucose R73.09 [facility] [address] 29069- 5225 August, Lateral epicondylitis, right elbow M77.11 [facility] [address] 20179- 9707 August, Screen for STD (sexually transmitted disease) Z11.3 [facility] [address] 91478- 7625 August, Neuroforaminal stenosis of spine M99.89 ; Mixed hyperlipidemia E78.2 ; Elevated fasting glucose R73.01 ; Screening mammogram, encounter for Z12.31 and Encounter for well woman exam without gynecological exam Z00.00 [facility] [id number] [place] [address] 08154- 2553 August, Neuroforaminal stenosis of spine M99.89 [facility] [id number] [place] [address] 33832- 4701 August, Essential hypertension I10 ; Hypokalemia E87.6 and Mixed hyperlipidemia E78.2 [facility] [id number] [place] [address] 16312- 7239 Jul, [facility] [id number] [place] [address] 88681- 7668 Jul, Neuroforaminal stenosis of spine M99.89 [facility] [address] [place] [address]- 4076 Jul, Lateral epicondylitis, right elbow M77.11 [facility], [place] [id number] [place] [address] 97812- 3003 Jul, [facility], [place] [id number] [place] [address] 84088- 6518 Jun, High ankle sprain of right lower extremity, initial encounter S93.431A [facility] [address] 73697- 9310 Jun, Essential hypertension I10 [facility] [address] 36483- 1145 Jun, [facility] [id number] [place] [address] 19648- 7710 Jun, [facility] [address] 75547- 0358 Jun, Neuroforaminal stenosis of spine M99.89 [facility] [id number] [place] [address] 48870- 5692 Jun, Pain of right upper extremity M79.601 and Essential hypertension I10 [facility] [id number] [place] [address] 99841- 3408 Jun, [facility] [id number] [place] [address] 94232- 9592 Jun, Dysuria R30.0 ; Acute cystitis with hematuria N30.01 and Screen for STD (sexually transmitted disease) Z11.3 [facility] [id number] [place] [address] 81429- 7142 May, Chronic pain due to trauma G89.21 [facility] [id number] [place] [address] 17023- 8239 May, Essential hypertension I10 [facility] [address] 91159- 8178 May, Neuroforaminal stenosis of spine M99.89 [facility] [address] [place] [address] 68130- 2461 Apr, Allergic reaction, initial encounter T78.40XA [facility] [id number] [place] [address] 86759- 0292 Apr, Low back pain, unspecified back pain laterality, unspecified chronicity, with sciatica presence unspecified M54.5 ; Acute cystitis with hematuria N30.01 ; Neuroforaminal stenosis of spine M99.89 ; Bilateral acute serous otitis media, recurrence not specified H65.03 ; Mixed hyperlipidemia E78.2 ; Essential hypertension I10 ; Immunization counseling Z71.89 and Encounter for immunization Z23 [facility] [id number] [place] [address] 20227- 9847 Apr, Neck pain M54.2 [facility] [address] 45603- 6705 Mar, Neuroforaminal stenosis of spine M99.89 [facility] [id number] [place] [address] 08966- 6910 Mar, Pharyngitis due to other organism J02.8 [facility] [id number] [place] [address] 31477- 5522 Feb, Neuroforaminal stenosis of spine M99.89 [facility] [id number] [place] [address] 23507- 0388 08 Feb, 2017 UTI (urinary tract infection) N39.0 [facility] [id number] [place] [address] 26382- 8559 07 Feb, 2017 Recent urinary tract infection Z87.440 ; Neuroforaminal stenosis of spine M99.89 ; Neck pain M54.2 ; Chronic pain due to trauma G89.21 and Recurrent UTI N39.0 [facility] [address] [place] [address] 31248- 0205 Feb, [facility] [id number] [place] [address] 12314- 4050 Jan, Neuroforaminal stenosis of spine M99.89 [facility] [address] 61877- 2042 Dec, Neuroforaminal stenosis of spine M99.89 [facility] [id number] [place] [address] 20287- 2828 18 Dec, 2016 Acute seasonal allergic rhinitis due to pollen J30.1 [facility] [id number] [place] [address] 77520- 5145 08 Dec, 2016 [facility] [address] 26442- 2841 08 Dec, 2016 Acute seasonal allergic rhinitis, unspecified trigger J30.2 ; Allergic conjunctivitis of both eyes H10.13 and Dysfunction of both eustachian tubes H69.83 [facility] [address] 35277- 9668 Dec, [facility] [address] 10312- 0960 Dec, Nevus D22.9 [facility] [address] 16017- 0568 Nov, Chronic pain due to trauma G89.21 and Neuroforaminal stenosis of spine M99.89 [facility] [id number] [place] [address] 99326- 4683 Nov, Neuroforaminal stenosis of spine M99.89 ; Essential hypertension I10 ; Mixed hyperlipidemia E78.2 ; Hypokalemia E87.6 ; Neck pain M54.2 and Nevus D22.9 [facility] [id number] [place] [address] 80072- 2265 Oct, Neuroforaminal stenosis of spine M99.89 [facility] [id number] [place] [address] 20464- 3503 Sep, Neuroforaminal stenosis of spine M99.89 [facility], [place] [address] [id number] [address]- 5096 Sep, [facility], [place] [address] [facility] [id number] [place] [address] 36118- 1456 August, [facility], [place] [address] [facility] [id number] [place] [address] 86674- 1974 August, Neck pain M54.2 and Neuroforaminal stenosis of spine M99.89 [facility], [place] [address] [id number] [address]- 3030 August, Routine gynecological examination Z01.419 and Screening breast examination Z12.39 [facility], [place] [address] [facility] [id number] [place] [address] 70474- 9411 Jul, [facility], [place] [id number] [place] [address] 94289- 8274 Jul, [facility], [place] [address] [place] [address] 78891- 4611 Jul, Neuroforaminal stenosis of spine M99.89 [facility], [place] [address] [facility] [id number] [place] [address] 87720- 0028 Jul, [facility], [place] [address] [facility] [id number] [place] [address] 49115- 9543 Jul, 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 [facility], [place] [address] [facility] [id number] [place] [address] 21233 2542 Jul, [facility], [place] [address] [facility] [id number] [address]- 2548 Jul, [facility], [place] [address] [facility] [id number] [place] [address] 86636- 6139 Jun, Neuroforaminal stenosis of spine M99.89 [facility], [place] [address] [facility] [id number] [address]- 2546 Jun, Uterine leiomyoma, unspecified location D25.9 and Allergic reaction caused by a drug, initial encounter T78.40XA [facility] [id number] [place] [address] 99729- 8549 Jun, [facility] [address] 52415- 0649 May, UTI symptoms R39.9 and Pain of right sacroiliac joint M53.3 [facility] [address] 05676- 8983 May, Neuroforaminal stenosis of spine M99.89 [facility] [address] 36970- 4442 May, [facility] [address] 10895- 0344 May, Acute mucoid otitis media of left ear H65.112 and Acute non- recurrent maxillary sinusitis J01.00 [facility] [address] 26928- 4784 May, Acute bacterial conjunctivitis of both eyes H10.33 ; Left arm pain M79.602 and Hypokalemia E87.6 [facility] [id number] [place] [address] 62545- 7600 Apr, [facility] [id number] [place] [address] 02618- 1392 Apr, Neuroforaminal stenosis of spine M99.89 ; Neck pain M54.2 ; Chronic pain due to trauma G89.21 ; Mixed hyperlipidemia E78.2 ; Essential hypertension I10 and Hypokalemia E87.6 [facility] [address] 14896- 9488 Mar, Oral candidiasis B37.0 ; Neuroforaminal stenosis of spine M99.89 ; Neck pain M54.2 and Chronic pain due to trauma G89.21 [facility] [address] 47502- 3328 Feb, [facility], [place] [address] [address]- 5140 Feb, [facility], [place] [id number] [place] [address] 97790- 8052 Feb, UTI (urinary tract infection) N39.0 [facility], [place] [address] [place] [address] 22240- 9833 Feb, Dysuria R30.0 [facility], [place] [id number] [place] [address] 67855- 7071 Feb, Dysuria R30.0 [facility], [place] [id number] [place] [address] 11765- 1955 Feb, Neuroforaminal stenosis of spine M99.89 ; Neck pain M54.2 ; Essential hypertension I10 ; Chronic pain due to trauma G89.21 ; Dysuria R30.0 ; Abnormal MRI, shoulder R93.8 and Acute cystitis without hematuria N30.00 [facility], [place] [address] [place] [address] 60815- 5696 Jan, [facility], [place] [id number] [place] [address] 68459- 8647 Jan, [facility], [place] [address] [place] [address] 39123- 3453 Jan, [facility], [place] [id number] [place] [address] 96449- 8789 Jan, Abnormal MRI R93.8 [facility], [place] [address] [place] [address] 54104- 6297 Dec, [facility] [address] [place] [address] 84817 -1855 Dec, Acute pain of left shoulder M25.512 [facility], [place] [address] [place] [address] 33837- 5979 Dec, [facility], [place] [id number] [address]- 1326 08 Dec, 2015 [facility], [place] [address] [place] [address] 86054- 7562 07 Dec, 2015 Acute pain of left shoulder M25.512 [facility], [place] [address], [place] [address]- 8819 Nov, [facility], [place] [id number] [place] [address] 11217- 0349 Nov, Neuroforaminal stenosis of spine M99.89 ; Neck pain M54.2 ; Abnormal mammogram R92.8 ; Essential hypertension I10 and Chronic pain due to trauma G89.21 [facility], [place] [id number] [place] [address] 71206- 7455 Nov, [facility], [place] [id number] [place] [address] 32223- 7255 Oct, Acute stress disorder F43.0 [facility], [place] [id number], [place] [address]- 0324 Oct, [facility], [place] [id number] [place] [address] 24030- 1440 Oct, [facility], [place] [address], [place] [address]- 3692 Oct, [facility], [place] [address], [place] [address]- 8257 Sep, [facility], [place] [address], [place] [address]- 4685 August, [facility], [place] [id number] [place] [address] 82000- 8701 Jul, Neuroforaminal stenosis of spine M99.89 ; Neck pain M54.2 ; Abnormal mammogram R92.8 and Essential hypertension I10 [facility], [place] [address], [place] [address]- 8136 Jul, [facility], [place] [address], [place] [address]- 2410 Jul, [facility], [place] [id number] [place] [address] 44505- 9656 Jul, Abnormal mammogram R92.8 [facility], [place] [address], [place] [address] 2546 Jul, [facility], [place] [id number] [place] [address] 51901- 4455 Jul, UTI (urinary tract infection) N39.0 [facility], [place] [id number] [place] [address] 34040- 8218 Jul, Dysuria R30.0 [facility], [place] [id number] [place] [address] 48780- 2346 Jun, [facility], [place] [id number] [place] [address] 50268- 3581 Jun, [facility], [place] [address] [place] [address] 81085 2540 Jun, Hypokalemia E87.6 and Hematuria R31.9 [facility], [place] [id number] [place] [address] 18098 2542 Jun, Hypokalemia E87.6 [facility], [place] [address] [place] [address] 46293 2546 Jun, [facility], [place] [address] [place] [address] 68010 2548 18 Jun, 2015 Hypokalemia E87.6 [facility], [place] [id number] [place] [address] 46931 2546 18 Jun, 2015 Hypokalemia E87.6 [facility], [place] [address] [address]- 2546 15 Jun, 2015 Neuroforaminal stenosis of spine M99.89 ; Hypokalemia E87.6 ; Neck pain M54.2 ; Essential hypertension I10 ; Mixed hyperlipidemia E78.2 and Screening breast examination Z12.39 [facility], [place] [id number] [place] [address] 21216- 4967 Jun, Dysuria R30.0 ; UTI (urinary tract infection) N39.0 and Hematuria R31.9 [facility] [address] 39592- 0657 May, [facility], [place] [address] 91567- 1207 May, High risk sexual behavior Z72.51 ; Hypokalemia E87.6 ; Neuroforaminal stenosis of spine M99.89 ; Neck pain M54.2 ; Essential hypertension I10 ; Mixed hyperlipidemia E78.2 ; STD exposure Z20.2 and Concern about STD in female without diagnosis Z71.1 [facility] [address] 19937- 5801 16 May, 2015 Neuroforaminal stenosis of spine M99.89 ; Neck pain M54.2 ; Hypokalemia E87.6 ; Essential hypertension I10 and Mixed hyperlipidemia E78.2 [facility] [address] 91781- 9420 May, [facility] [id number] [place] [address] 97545 -7464 May, High risk sexual behavior Z72.51 ; STD exposure Z20.2 and Concern about STD in female without diagnosis Z71.1 [place] [address] 38155- 6639 May, [facility], [place] [address] 31655- 0900 Apr, Neuroforaminal stenosis of spine M99.89 ; Mixed hyperlipidemia E78.2 ; Essential hypertension I10 and Hypokalemia E87.6 [place] [address] 08017- 8739 Mar, [facility] [id number] [place] [address] 76729- 6906 Mar, Hypokalemia E87.6 [facility] [id number] [place] [address] 17720- 4539 Mar, Neuroforaminal stenosis of spine M99.89 ; Mixed hyperlipidemia E78.2 ; Neck pain M54.2 ; Essential hypertension I10 ; Abnormal fasting glucose R73.09 ; Hypokalemia E87.6 and Constipation K59.00 [facility] [id number] [place] [address] 85294- 7880 Feb, Neuroforaminal stenosis of spine M99.89 ; Mixed hyperlipidemia E78.2 ; Neck pain M54.2 ; Essential hypertension I10 ; Abnormal fasting glucose R73.09 ; Hypokalemia E87.6 and Constipation K59.00 [place] [address] 50985- 8009 Feb, Elevated fasting blood sugar R73.01 [facility] [address] 74353- 6227 Feb, Elevated fasting blood sugar R73.01 [facility] [facility] [address] 48989- 6932 Feb, Hair loss L65.9 [facility] [id number] [place] [address] 71434- 4067 Feb, Sinusitis J32.9 ; Essential hypertension I10 and Hair loss L65.9 [facility] [id number] [place] [address] 08680- 5725 Jan, [facility] [address] 22802- 8591 Jan, Essential hypertension I10 ; Neuroforaminal stenosis of spine M99.89 ; Neck pain M54.2 ; Mixed hyperlipidemia E78.2 and Anxiety F41.9 [place] [address] 36632- 2772 Jan, [facility], [place] [address] [place] [address] 83484- 3290 Jan, Mixed hyperlipidemia E78.2 ; Essential (primary) hypertension I10 ; Strain of muscle, fascia and tendon at neck level, subsequent encounter S16.1XXD and Tension-type headache, unspecified, not intractable G44.209 [facility] [id number] [place] [address] 63011- 3150 Dec, Lumbar back pain 724.2 and Neuroforaminal stenosis of spine 724.00 [facility] [id number] [place] [address] 29819- 1536 Nov, [facility] [id number] [place] [address] 85295- 6468 Nov, Lumbar back pain 724.2 and Neuroforaminal stenosis of spine 724.00 [facility] [id number] [place] [address] 92084- 5724 Nov, Edema 782.3 ; Lumbar back pain 724.2 ; Essential hypertension, benign 401.1 ; Hyperlipemia 272.4 ; Neuroforaminal stenosis of spine 724.00 and Post-concussion headache 339.20 [facility] [address] [place] [address] 89144- 7530 Nov, [facility] [address], [place] [address]- 1560 Nov, [facility] [id number] [place] [address] 57774- 8418 Oct, Essential hypertension, benign 401.1 [facility] [id number] [place] [address] 96371- 7585 Oct, Edema 782.3 ; Lumbar back pain 724.2 ; Essential hypertension, benign 401.1 ; Hyperlipemia 272.4 ; Neuroforaminal stenosis of spine 724.00 and Post-concussion headache 339.20 [place] [id number] [address]- 4078 Oct, [facility], [place] [address], [place] [address]- 1864 Oct, Edema 782.3 [facility], [place] [address] [place] [address] 06021- 6009 Oct, Lumbar back pain 724.2 [facility], [place] [address] [place] [address] Oct, Cervicalgia 723.1 ; Lumbar back pain 724.2 and High risk medication use V58.69 [facility], [place] [id number] [place] [address] Sep, [facility], [place] [id number] [place] [address]- 38[address] Sep, Lumbar strain 847.2 [facility], [place] [id number] [place] [address]- 1115 August, Edema 782.3 and Eustachian tube dysfunction 381.81 [facility], [place] [id number] [place] [address]- [address] August, [facility], [place] [id number] [place] [address]- [address] August, Eustachian tube dysfunction 381.81 [facility], [place] [id number] [address] Jul, Otalgia 388.70 and Otitis media 382.9 [facility], [place] [id number] [address] Jul, [facility], [place] [id number] [place] [address] 75[address]- [address] Jul, [facility], [place] [id number] [address] Jul, [facility], [place] [id number] [place] [address]86- 8432 14 Jul, 2014 [facility] [place] [facility] [address] [id number] [place] [address] 13 Jul, 2014 [facility] [place] [facility] [address] [id number] [place] [address] 27 Jun, 2014 [facility] [place] [facility] [address] [facility] [id number] [place] [address] 27 Jun, 2014 [facility] [place] [facility] [address] [id number] [place] [address] 16 Jun, 2014 [facility] [place] [facility] [address] [id number] [place] [address] May, 2014 [facility] [place] [facility] [address] [facility] [id number] [place] [address]- [address] May, 2014 [facility] [place] [facility] [address] [facility] [id number] [place] [address] May, 2014 [facility] [place] [facility] [address] [facility] [id number] [place] [address] May, 2014 [facility] [place] [facility] [address] [facility] [id number] [place] [address] May, 2014 [facility] [place] [facility] [address] [facility] [id number] [place] [address] May, 2014 [facility] [place] [facility] [address] [facility] [id number] [place] [address] 25[address] May, 2014 [facility] [place] [facility] [address] [facility] [id number] [place] [address] May, 2014 [facility] [place] [facility] [address] [facility] [id number] [place] [address] May, 2014 [facility] [place] [facility] [address] [facility] [id number] [place] [address] 8[address] May, 2014 [facility] [place] [facility] [address] [facility] [id number] [id number] [address] Apr, [facility] [place] [facility] [address] [id number] [place] [address] 239[address] Apr, [facility] [place] [facility] [address] [id number] [place] [address] 8722 Apr, [facility] [place] [facility] [address] [id number] [place] [address]- 6705 Apr, [facility] [place] [facility] [address] [id number] [place] [address]- 4508 Apr, [facility] [place] [facility] [address] [id number] [place] [address]- 4311 Apr, [facility] [place] [facility] [address] [id number] [place] [address]- 3874 Apr, [facility] [place] [facility] [address] [id number] [place] [address]- 5714 Apr, [facility] [place] [facility] [address] [id number] [place] [address]- 8518 Apr, [facility] [place] [facility] [address] [id number] [place] [address]- 8754 Apr, [facility] [place] [facility] [address] [id number] [place] [address]- 1102 Apr, [facility] [place] [facility] [address] [id number] [place] [address]- 1480 Apr, [facility] [place] [facility] [address] [id number] [place] [address]- 0591 Apr, [facility] [place] [facility] [address] [id number] [place] [address]- 9634 Apr, [facility] [place] [facility] [address] [id number] [place] [address]- 7370 Apr, [facility] [place] [facility] [address] [id number] [place] [address]- 3686 Mar, [facility] [place] [facility] [address] [id number] [place] [address]- 0654 Mar, [facility] [place] [facility] [address] [id number] [place] [address]- 3912 Mar, [facility] [place] [facility] [address] [id number] [place] [address] Mar, [facility] [place] [facility] [address] [id number] [place] [address] Feb, [facility] [place] [facility] [address] [id number] [place] [address]- 7027 Feb, [facility] [place] [facility] [address] [id number] [place] [address] Feb, [facility] [place] [facility] [address] [id number] [place] [address]- 9428 Feb, [facility] [place] [facility] [address] [id number] [place] [address]- 5845 Jan, [facility] [place] [facility] [address] [id number] [address] 8[address] Jan, [facility] [place] [facility] [address] [id number] [place] [address]- 5015 Jan, [facility] [place] [facility] [address] [facility] [id number][place] [address]- 8327 Jan, [facility] [place] [facility] [address] [id number] [place] [address]- 0173 Jan, [facility] [place] [facility] [address] [id number], [place] [address]- 3710 Jan, [facility] [place] [facility] [address] [id number] [address] Jan, [facility] [place] [facility] [address] [id number][place] [address]- 5873 Jan, [facility] [place] [facility] [address] [id number][place] 4703 Dec, [facility] [place] [facility] [address] [id number] [place] [address] 6447 29 Dec, 2013 [facility] [place] [facility] [address] [id number] [place] [address]- 1666 04 Dec, 2013 [facility] [place] [facility] [address] [id number] [place] [address] 04 Dec, 2013 [facility] [place] [facility] [address] [id number] [place] [address] 1968 Oct, 2013 [facility] [place] [facility] [address] [id number] [place] [address]- 2878 Oct, 2013 [facility] [place] [facility] [address] [id number] [place] [address]- 3265 Oct, [facility] [place] [facility] [address] [id number] [place] [address]- 9648 Oct, 2013 [facility] [place] [facility] [address] [id number] [place] [address]- 2961 Oct, [facility] [place] [facility] [address] [id number] [place] [address]- 9284 Oct, [facility] [place] [facility] [address] [id number] [place] [address]- 2625 Oct, [facility] [place] [facility] [address] [id number] [place] [address]- 1900 Oct, [facility] [place] [facility] [address] [id number] [place] [address]- 5615 Sep, [facility] [place] [facility] [address] [id number] [place] [address]- 8649 Sep, [facility] [place] [facility] [address] [id number] [place] [address]- 8745 Sep, [facility] [place] [facility] [address] [id number] [place] [address]- 6557 Sep, [facility] [place] [facility] [address] [id number] [place] [address]- 9431 Sep, [facility] [place] [facility] [address] [id number] [place] [address]- 9850 Sep, [facility] [place] [facility] [address] [id number] [place] [address]- 4940 Sep, [facility] [place] [facility] [address] [id number] [place] [address]- 3033 Sep, [facility] [place] [facility] [address] [id number] [place] [address]- 3594 Sep, [facility] [place] [facility] [address] [id number] [place] [address]- 8895 Sep, [facility] [place] [facility] [address] [id number] [place] [address]- 2146 August, [facility] [place] [facility] [address] [id number] [place] [address]- 6348 August, [facility] [place] [facility] [address] [id number] [place] [address]- 2378 August, [facility] [place] [facility] [address] [id number] [place] [address]- 1252 August, [facility] [place] [facility] [address] [id number] [place] [address]- 8196 August, [facility] [place] [facility] [address] [id number] [place] [address]- 7830 August, [facility] [place] [facility] [address] [id number] [place] [address]- 4248 August, [facility] [place] [facility] [address] [id number] [place] [address]- 1279 August, [facility] [place] [facility] [address] [id number] [place] [address]- 5909 August, [facility] [place] [facility] [address] [id number] [place] [address]- 4744 August, [facility] [place] [facility] [address] [id number] [place] [address]- 6158 August, [facility] [place] [facility] [address] [id number] [place] [address]- 8935 August, [facility] [place] [facility] [address] [id number] [place] [address]- 3943 Jul, [facility] [place] [facility] [address] [id number] [place] [address]- 2409 Jul, [facility] [place] [facility] [address] [id number] [place] [address]- 9848 Jul, [facility] [place] [facility] [address] [id number] [place] [address]- 0509 Jul, [facility] [place] [facility] [address] [id number] [place] [address]- 6166 Jul, [facility] [place] [facility] [address] [id number] [place] [address]- 2872 Jul, [facility] [place] [facility] [address] [id number] [place] [address]- 2302 Jun, [facility] [place] [facility] [address] [id number] [place] [address]- 8185 Jun, [facility] [place] [facility] [address] [id number] [place] [address]- 3020 May, [facility] [place] [facility] [address] [id number] [place] [address]- 3979 May, [facility] [place] [facility] [address] [id number] [place] [address]- 9928 Apr, [facility] [place] [facility] [address] [id number] [place] [address]- 4441 Apr, [facility] [place] [facility] [address] [id number] [place] [address]- 0551 Apr, [facility] [place] [facility] [address] [id number] [place] [address]- 3704 Apr, [facility] [address] [id number] [place] [address]- 2492 Apr, [facility] [place] [facility] [address] [id number] [place] [address]- 8239 Apr, [facility] [place] [facility] [address] [id number] [place] [address]- 3065 Apr, [facility] [place] [facility] [address] [id number] [place] [address]- 2738 Apr, [facility] [place] [facility] [address] [id number] [place] [address]- 7318 Apr, [facility] [place] [facility] [address] [id number] [place] [address]- 4634 Apr, [facility] [place] [facility] [address] [id number] [place] [address]- 1922 Apr, [facility] [place] [facility] [address] [id number] [place] [address]- 4148 Apr, [facility] [place] [facility] [address] [id number] [place] [address]- 1371 Apr, [facility] [place] [facility] [address] [id number], [place] [address]- 5526 Mar, [facility] [place] [facility] [address] [id number], [place] [address]- 7470 Mar, [facility] [place] [facility] [address] [id number], [place] [address]- 1726 Mar, [facility] [place] [facility] [address] [id number] [place] [address]- 1189 Mar, [facility] [place] [facility] [address] [id number] [place] [address]- 9516 Feb, [facility] [place] [facility] [address] [id number], [place] [address]- 8074 Feb, [facility] [place] [facility] [address] [id number], [place] [address]- 1251 08 Feb, 2013 [facility] [place] [facility] [address] [id number] [place] [address]- 4581 08 Feb, 2013 [facility] [place] [facility] [address] [id number] [place] [address]- 5465 14 Jan, 2013 [facility] [place] [facility] [address] [id number] [place] [address]- 9641 14 Jan, 2013 [facility] [place] [facility] [address] [id number] [place] [address]- 1476 Jan, [facility] [place] [facility] [address] [id number] [place] [address]- 9058 Jan, [facility] [place] [facility] [address] [id number] [place] [address]- 1279 Jan, [facility] [place] [facility] [address] [id number] [place] [address]- 6799 Jan, [facility] [place] [facility] [address] [id number] [place] [address]- 7723 Jan, [facility] [place] [facility] [address] [facility] [id number] [place] [address]- 4179 Jan, [facility] [place] [facility] [address] [facility] [id number] [place] [address]- 6468 Jan, [facility] [place] [facility] [address] [id number], [place] [address]- 3051 26 Dec, 2012 [facility] [place] [facility] [address] [id number], [place] [address]- 2607 16 Dec, 2012 [facility] [place] [facility] [address] [id number] [place] [address]- 8534 16 Dec, 2012 [facility] [place] [facility] [address] [id number] [place] [address]- 2871 13 Dec, 2012 [facility] [place] [facility] [address] [facility] [id number] [place] [address]- 9061 17 Nov, 2012 [facility] [place] [facility] [address] [id number] [place] [address]- [address] Nov, [facility] [address] [id number] [place] [address]- 3928 Nov, [facility] [place] [facility] [address] [id number] [place] [address] 2546 Nov, [facility] [address] [id number] [place] [address]- 0436 Oct, [facility] [address] [id number] [place] [address]- 5391 Sep, [facility] [address] [id number] [place] [address]- 2588 August, [facility] [address] [id number] [place] [address]- 0132 August, [facility] [address] [id number] [place] [address]- 6341 August, [facility] [address] [id number] [place] [address]- 6448 August, [facility] [address] [id number] [place] [address]- 4853 August, [facility] [address] [id number] [place] [address]- 3941 August, [facility] [address] [id number] [place] [address]- 7854 August, [facility] [address] [id number] [place] [address]- 7490 August, [facility] [place] [facility] [address] [id number] [place] [address]- 8326 August, [facility] [place] [facility] [address] [id number] [place] [address]- 2546 August, [facility] [address] [id number] [place] [address]- 0302 August, [facility] [address] [id number] [place] [address]- 1555 August, [facility] [address] [id number] [place] [address]- 1854 Jul, [facility] [address] [id number] [place] [address]- 7669 Jul, [facility] [place] [facility] [address] [id number] [place] [address]- 1030 Jul, [facility] [address] [id number] [place] [address]- 7546 Jul, [facility] [address] [id number] [place] [address]- 1378 Jul, [facility] [address] [id number] [place] [address]- 8139 Jul, [facility] [place] [facility] [address] [id number] [place] [address]- 0622 Jul, [facility] [place] [facility] [address] [id number] [place] [address]- 9551 Jul, [facility] [place] [facility] [address] [id number] [place] [address]- 8898 Jul, [facility] [place] [facility] [address] [id number] [place] [address]- 7952 Jul, [facility] [place] [facility] [address] [id number], [place] [address]- 1425 Jul, [facility] [place] [facility] [address] [id number] [place] [address]- 4254 Jun, [facility] [place] [facility] [address] [id number] [place] [address]- 8911 Jun, [facility] [place] [facility] [address] [id number] [place] [address]- 3412 Jun, [facility] [place] [facility] [address] [id number] [place] [address]- 0456 Jun, [facility] [address] [id number] [place] [address]- 4366 28 May, 2012 [facility] [place] [facility] [address] [id number] [place] [address] 2546 14 May, 2012 [facility] [place] [facility] [address] [id number] [place] [address]- 2546 05 May, 2012 [facility] [place] [facility] [address] [id number] [place] [address]- 2546 May, [facility] [address] [id number] [place] [address]- 6786 May, [facility] [place] [facility] [address] [id number] [place] [address]- 2546 May, [facility] [address] [id number] [place] [address]- 8926 Apr, [facility] [address] [id number] [place] [address]- 9120 Apr, [facility] [place] [facility] [address] [id number] [place] [address]- 8074 30 Apr, [address] [facility] [address] [id number] [place] [address]- 8808 Apr, [facility] [place] [facility] [address] [id number] [place] [address] 2546 15 Mar, 2012 [facility] [place] [facility] [address] [id number] [place] [address] 2546 14 Mar, 2012 [facility] [place] [facility] [address] [id number] [place] [address] 2546 14 Mar, 2012 [facility] [place] [facility] [address] [id number] [place] [address] 2546 14 Mar, 2012 [facility] [place] [facility] [address] [id number] [place] [address]- 2546 Mar, [facility] [place] [facility] [address] [id number] [place] [address]- 1074 Mar, [facility] [place] [facility] [address] [id number] [place] [address]- 6517 Mar, [facility] [place] [facility] [address] [id number] [place] [address]- 0463 Feb, [facility] [place] [facility] [address] [id number] [place] [address]- 6911 Feb, [facility] [place] [facility] [address] [id number] [place] [address]- 2881 Feb, [facility] [place] [facility] [address] [id number] [place] [address]- 4023 Feb, [facility] [place] [facility] [address] [id number] [place] [address]- 2662 Jan, [facility] [place] [facility] [address] [id number] [place] [address]- 7147 Jan, [facility] [place] [facility] [address] [id number] [place] [address]- 1545 Jan, [facility] [place] [facility] [address] [id number] [place] [address]- 0277 Jan, [facility] [place] [facility] [address] [id number] [place] [address]- 3844 Jan, [facility] [place] [facility] [address] [id number], [place] [address]- 8581 Jan, [facility] [place] [facility] [address] [id number] [place] [address]- 6446 Dec, [facility] [place] [facility] [address] [id number] [place] [address]- 7427 Dec, [facility] [place] [facility] [address] [id number] [place] [address]- 2991 Nov, [facility] [place] [facility] [address] [id number] [place] [address]- 7467 Sep, [facility] [address] [id number] [place] [address]- 4518 August, [facility] [place] [facility] [address] [id number] [place] [address]- 7528 August, [facility] [place] [facility] [address] [id number] [place] [address]- 0098 August, [facility] [place] [facility] [address] [id number] [place] [address]- 7633 August, [facility] [place] [facility] [address] [id number] [place] [address]- 7838 August, [facility] [place] [facility] [address] [id number] [place] [address]- 9982 Jun, [facility] [place] [facility] [address] [id number] [place] [address]- 9057 Jun, [facility] [place] [facility] [address] [id number] [place] [address] Apr, [facility] [place] [facility] [address] [id number] [place] [address] Apr, [facility] [place] [facility] [address] [id number] [place] [address] Mar, [facility] [place] [facility] [address] [id number] [place] [address] Feb, [facility] [place] [facility] [address] [id number] [place] [address] Feb, [facility] [place] [facility] [address] [id number] [place] [address] 14 Feb, 2011 [facility] [place] [facility] [address] [id number] [place] [address] 17 Jan, 2011 [facility] [place] [facility] [address] [id number] [place] [address] 15 Jan, 2011 [facility] [place] [facility] [id number] [address] 15 Jan, 2011 [facility] [place] [id number] [place] [address] 14 Jan, 2011 [facility] [place] [id number] [address] May, [facility] [place] [id number] [place] [address] Mar, [facility] [place] [id number] [place] [address] Oct, [facility] [place] [id number] [place] [address] Sep, [facility] [place] [id number] [place] [address] Mar, [facility] [place] [id number] [place] [address] Jan, [facility] [place] [id number] [place] [address] Jan, [facility], [place] [id number] [address] May, IMMUNIZATIONS No Known Immunizations SOCIAL HISTORY Never Assessed REASON FOR VISIT refill PLAN OF CARE VITAL SIGNS MEDICATIONS Medication Instructions Dosage Frequency Start Date End Date Duration Status Amlodipine Besylate 5 mg Orally Once a day 1 tablet 24h Active RESULTS No Results PROCEDURES No Known procedures INSTRUCTIONS MEDICATIONS ADMINISTERED No Known Medications MEDICAL (GENERAL) HISTORY Type Description Date Medical History hypertension Medical History Colposcopy with loop electrode excision of the cervix was performed 06/2012, mild squamous atypia (no definite dyplasia). Performed at [facility] Dr. Joy. Medical History Acute suppurative otitis [...] cut in index finger sometime in the 1980's. Surgical History colonoscopy 04-28-15 Hospitalization History hospitalizations for surgeries only
--- OUTSIDE RECORDS SUMMARY | 2018-06-10 05:05 | XMS REPORT ---
Author Author BAYMATTHEW Lujan [facility] Address [address] [place] [address] Care Team Providers Care Upper Cutter Machine Name Role Phone MATTHEW BAY Unavailable PROBLEMS Type Condition ICD9-CM Code PLL79-IA Code Onset Dates Condition Status SNOMED Code Problem Anxiety F41.9 Active 49586670 Problem Abnormal glucose R73.09 Active 480328618 Problem Chronic pain due to trauma G89.21 Active 301244157 Problem Hypokalemia E87.6 Active 62593071 Problem Neck pain M54.2 Active 29959402 Problem Neuroforaminal stenosis of spine M99.89 Active 762918438107 Problem Mixed hyperlipidemia E78.2 Active 12346259 Problem Essential hypertension I10 Active 32693603 ALLERGIES Substance Reaction Event Type Date Status Fluarix Quadrivalent rash Drug Allergy Jun, Active Zostavax rash Drug Allergy Jun, Active Macrobid rash Drug Allergy Jun, Active Cipro hives Drug Allergy Jun, Active Bactrim hives Drug Allergy Jun, Active Baclofen Unknown Drug Allergy Jun, Active Amitriptyline HCl dizziness Drug Allergy Jun, Active Peanut Unknown Non Drug Allergy Jun, Active ENCOUNTERS Encounter Location Date Diagnosis [facility] [id number] [address] Oct, [facility] [address] [address] Oct, [facility] [address] [address] Oct, [facility] [id number] [address] 9363 Oct, Neuroforaminal stenosis of spine M99.89 [facility] [id number] [place] [address] 17039- 5017 10 Oct, 2017 Visit for TB skin test Z11.1 [place] [address] 63349- 2358 05 Oct, 2017 Cystitis without hematuria N30.90 [place] [address] 30633- 0946 28 Sep, 2017 Screening breast examination Z12.39 [place] [address] 56263- 3786 26 Sep, 2017 Dysuria R30.0 and Cystitis without hematuria N30.90 [place] [address] 32911- 9826 14 Sep, 2017 Essential hypertension I10 and Neuroforaminal stenosis of spine M99.89 [place] [address] 48634- 5765 Sep, Abnormal glucose R73.09 [place] [address] 04999- 4339 August, Lateral epicondylitis, right elbow M77.11 [place] [address] 17731- 6188 August, Screen for STD (sexually transmitted disease) Z11.3 [place] [address] 87436- 4214 August, Neuroforaminal stenosis of spine M99.89 ; Mixed hyperlipidemia E78.2 ; Elevated fasting glucose R73.01 ; Screening mammogram, encounter for Z12.31 and Encounter for well woman exam without gynecological exam Z00.00 [place] [address] 84272- 4471 August, Neuroforaminal stenosis of spine M99.89 [place] [id number] [place] [address] 50707- 2287 August, Essential hypertension I10 ; Hypokalemia E87.6 and Mixed hyperlipidemia E78.2 [facility] [id number] [place] [address] 99276- 9837 Jul, [facility] [address] 22083- 9506 Jul, Neuroforaminal stenosis of spine M99.89 [facility] [address] 81965- 8176 Jul, Lateral epicondylitis, right elbow M77.11 [facility] [id number] [place] [address] 13975- 0818 Jul, [place] [address] 34500- 0282 Jun, High ankle sprain of right lower extremity, initial encounter S93.431A [place] [address] 87959- 1685 Jun, Essential hypertension I10 [facility] [id number] [place] [address] 13196- 8385 Jun, [facility] [id number] [place] [address] 17553- 6223 Jun, [facility] [id number] [place] [address] 19066- 9376 Jun, Neuroforaminal stenosis of spine M99.89 [facility] [id number] [place] [address] 47139- 0045 Jun, Pain of right upper extremity M79.601 and Essential hypertension I10 [facility] [id number] [place] [address] 05238- 0273 Jun, [place] [address] 97868- 9823 Jun, Dysuria R30.0 ; Acute cystitis with hematuria N30.01 and Screen for STD (sexually transmitted disease) Z11.3 [place] [id number] [place] [address] 32071- 8912 May, Chronic pain due to trauma G89.21 [place] [address] 03512- 8774 May, Essential hypertension I10 [place] [address] 61754- 1570 May, Neuroforaminal stenosis of spine M99.89 [place] [address] 24482- 7038 Apr, Allergic reaction, initial encounter T78.40XA [place] [address] 52937- 5680 Apr, Low back pain, unspecified back pain laterality, unspecified chronicity, with sciatica presence unspecified M54.5 ; Acute cystitis with hematuria N30.01 ; Neuroforaminal stenosis of spine M99.89 ; Bilateral acute serous otitis media, recurrence not specified H65.03 ; Mixed hyperlipidemia E78.2 ; Essential hypertension I10 ; Immunization counseling Z71.89 and Encounter for immunization Z23 [place] [address] 98870- 6162 Apr, Neck pain M54.2 [place] [address] 87670- 9091 Mar, Neuroforaminal stenosis of spine M99.89 [place] [id number] [place] [address] 63968- 8765 Mar, Pharyngitis due to other organism J02.8 [place] [id number] [place] [address] 73995- 4769 Feb, Neuroforaminal stenosis of spine M99.89 [place] [id number] [place] [address] 39409- 4664 08 Feb, 2017 UTI (urinary tract infection) N39.0 [place] [address] 67411- 7308 Feb, Recent urinary tract infection Z87.440 ; Neuroforaminal stenosis of spine M99.89 ; Neck pain M54.2 ; Chronic pain due to trauma G89.21 and Recurrent UTI N39.0 [place] [id number] [place] [address] 03264- 1585 Feb, [place] [address] 42508- 9910 Jan, Neuroforaminal stenosis of spine M99.89 [place] [address] 15572- 8412 Dec, Neuroforaminal stenosis of spine M99.89 [place] [id number] [place] [address] 86883- 5156 18 Dec, 2016 Acute seasonal allergic rhinitis due to pollen J30.1 [place] [address] 03630- 1322 08 Dec, 2016 [place] [address] 43229- 6445 08 Dec, 2016 Acute seasonal allergic rhinitis, unspecified trigger J30.2 ; Allergic conjunctivitis of both eyes H10.13 and Dysfunction of both eustachian tubes H69.83 [place] [id number] [place] [address] 98746- 9083 07 Dec, 2016 [place] [id number] [place] [address] 79167- 0429 Dec, Nevus D22.9 [place] [id number] [place] [address] 73091- 4014 Nov, Chronic pain due to trauma G89.21 and Neuroforaminal stenosis of spine M99.89 [place] [id number] [place] [address] 95850- 9399 Nov, Neuroforaminal stenosis of spine M99.89 ; Essential hypertension I10 ; Mixed hyperlipidemia E78.2 ; Hypokalemia E87.6 ; Neck pain M54.2 and Nevus D22.9 [facility] [address] [id number] [address] 5198 Oct, Neuroforaminal stenosis of spine M99.89 [facility] [address] [id number] [address]- 2188 Sep, Neuroforaminal stenosis of spine M99.89 [facility] [address] [id number] [place] [address] 26469- 1810 Sep, [facility] [id number] [place] [address] 71381- 0031 August, [facility] [address] [facility] [id number] [place] [address] 83646- 5098 August, Neck pain M54.2 and Neuroforaminal stenosis of spine M99.89 [facility] [address] [facility] [id number] [place] [address] 40795- 2454 August, Routine gynecological examination Z01.419 and Screening breast examination Z12.39 [facility] [address] [facility] [id number] [place] [address] 05131- 1759 Jul, [facility] [address] [facility] [id number] [place] [address] 12404- 2704 Jul, [facility] [address] [facility] [id number] [place] [address]- 4804 Jul, Neuroforaminal stenosis of spine M99.89 [facility] [address] [id number] [place] [address]- 254 Jul, [facility] [address] [facility] [id number] [place] [address] 80965- 3100 Jul, 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 [facility] [address] [facility] [id number] [place] [address]- 2544 Jul, [facility] [address] [facility] [id number] [place] [address] 69199- 0034 Jul, [place] [id number] [place] [address] 03247- 2514 Jun, Neuroforaminal stenosis of spine M99.89 [place] [id number] [place] [address] 68477- 4722 Jun, Uterine leiomyoma, unspecified location D25.9 and Allergic reaction caused by a drug, initial encounter T78.40XA [place] [address] 17076- 8015 Jun, [place] [address] 08410- 9729 May, UTI symptoms R39.9 and Pain of right sacroiliac joint M53.3 [place] [address] 12944- 7373 May, Neuroforaminal stenosis of spine M99.89 [place] [id number] [place] [address] 96408- 4791 May, [place] [id number] [place] [address] 80017- 0419 May, Acute mucoid otitis media of left ear H65.112 and Acute non- recurrent maxillary sinusitis J01.00 [id number] [place] [address] 57247- 5821 May, Acute bacterial conjunctivitis of both eyes H10.33 ; Left arm pain M79.602 and Hypokalemia E87.6 [place] [id number] [place] [address] 74609- 6415 Apr, [place] [address] 31916- 6192 Apr, Neuroforaminal stenosis of spine M99.89 ; Neck pain M54.2 ; Chronic pain due to trauma G89.21 ; Mixed hyperlipidemia E78.2 ; Essential hypertension I10 and Hypokalemia E87.6 [facility] [address] [place] [address] 07971- 8054 Mar, Oral candidiasis B37.0 ; Neuroforaminal stenosis of spine M99.89 ; Neck pain M54.2 and Chronic pain due to trauma G89.21 [facility] [id number] [place] [address] 02063- 6846 Feb, [facility] [id number] [place] [address] 13266- 4136 Feb, [facility] [id number] [place] [address] 26012- 1728 Feb, UTI (urinary tract infection) N39.0 [place] [id number] [place] [address] 34055- 2377 Feb, Dysuria R30.0 [place] [id number] [place] [address] 87027- 2955 Feb, Dysuria R30.0 [place] [id number] [place] [address] 14626- 3436 Feb, Neuroforaminal stenosis of spine M99.89 ; Neck pain M54.2 ; Essential hypertension I10 ; Chronic pain due to trauma G89.21 ; Dysuria R30.0 ; Abnormal MRI, shoulder R93.8 and Acute cystitis without hematuria N30.00 [place] [address] [place] [address] 07546- 4997 Jan, [facility] [address] [place] [address] 89690- 9000 Jan, [facility] [id number] [place] [address] 39839- 4160 Jan, [facility] [id number] [place] [address] 50969- 6374 Jan, Abnormal MRI R93.8 [facility] [id number] [place] [address] 45371- 9350 29 Dec, 2015 [facility] [address] [facility] [id number] [place] [address] -5389 15 Dec, 2015 Acute pain of left shoulder M25.512 [facility] [address] [facility] [id number] [place] [address]- 0851 09 Dec, 2015 [facility] [id number] [place] [address] 05864- 7480 08 Dec, 2015 [facility] [address] [facility] [id number] [place] [address] 02008- 3421 07 Dec, 2015 Acute pain of left shoulder M25.512 [facility] [id number] [place] [address] 05063- 2918 23 Nov, 2015 [facility] [id number] [place] [address] 79916- 5393 16 Nov, 2015 Neuroforaminal stenosis of spine M99.89 ; Neck pain M54.2 ; Abnormal mammogram R92.8 ; Essential hypertension I10 and Chronic pain due to trauma G89.21 [facility] [address] [address]- 2272 Nov, [facility] [id number] [place] [address] 10951- 2008 Oct, Acute stress disorder F43.0 [facility] [address] [address]- 5524 Oct, [facility] [id number] [address]- 2175 Oct, [facility] [address] [address]- 8214 Oct, [facility] [address] [address]- 1812 Sep, [facility] [address] [address]- 7532 August, [facility] [id number] [place] [address] 63531- 2054 Jul, Neuroforaminal stenosis of spine M99.89 ; Neck pain M54.2 ; Abnormal mammogram R92.8 and Essential hypertension I10 [facility] [id number] [address] 2546 Jul, [facility] [id number] [place] [address] 24210- 8116 Jul, [facility] [id number] [place] [address] 51808 2543 Jul, Abnormal mammogram R92.8 [facility] [id number] [place] [address] 75323 2546 Jul, [facility] [id number] [place] [address] 19184- 6785 Jul, UTI (urinary tract infection) N39.0 [facility] [id number] [place] [address] 08669 2549 Jul, Dysuria R30.0 [facility] [id number] [place] [address] 14031 2546 Jun, [facility] [id number] [place] [address] 27176 2546 Jun, [facility] [address] [place] [address] 92703 2544 Jun, Hypokalemia E87.6 and Hematuria R31.9 [facility] [id number] [place] [address] 86960 2545 Jun, Hypokalemia E87.6 [facility] [id number] [place] [address] 78497 2546 23 Jun, 2015 [facility] [address] [place] [address] 91687- 2541 18 Jun, 2015 Hypokalemia E87.6 [facility] [id number] [place] [address] 12757- 8742 Jun, Hypokalemia E87.6 [place] [address] 68051- 6652 15 Jun, 2015 Neuroforaminal stenosis of spine M99.89 ; Hypokalemia E87.6 ; Neck pain M54.2 ; Essential hypertension I10 ; Mixed hyperlipidemia E78.2 and Screening breast examination Z12.39 [place] [address] 30123- 9436 08 Jun, 2015 Dysuria R30.0 ; UTI (urinary tract infection) N39.0 and Hematuria R31.[address] 74631- 3527 26 May, [address] 23281- 8641 18 May, 2015 High risk sexual behavior Z72.51 ; Hypokalemia E87.6 ; Neuroforaminal stenosis of spine M99.89 ; Neck pain M54.2 ; Essential hypertension I10 ; Mixed hyperlipidemia E78.2 ; STD exposure Z20.2 and Concern about STD in female without diagnosis Z71.1 [place] [id number] [place] [address] 16277- 5240 16 May, 2015 Neuroforaminal stenosis of spine M99.89 ; Neck pain M54.2 ; Hypokalemia E87.6 ; Essential hypertension I10 and Mixed hyperlipidemia E78.2 [place] [id number] [place] [address] 92048- 9991 11 May, 2015 [facility] [address] 01741 -0509 08 May, 2015 High risk sexual behavior Z72.51 ; STD exposure Z20.2 and Concern about STD in female without diagnosis Z71.1 [place] [id number] [place] [address] 01622- 9154 05 May, 2015 [place] [id number] [place] [address] 15168- 3003 Apr, Neuroforaminal stenosis of spine M99.89 ; Mixed hyperlipidemia E78.2 ; Essential hypertension I10 and Hypokalemia E87.6 [place] [id number] [place] [address] 10239- 6162 Mar, [place] [address] 38836- 1676 Mar, Hypokalemia E87.6 [place] [address] 28953- 5562 Mar, Neuroforaminal stenosis of spine M99.89 ; Mixed hyperlipidemia E78.2 ; Neck pain M54.2 ; Essential hypertension I10 ; Abnormal fasting glucose R73.09 ; Hypokalemia E87.6 and Constipation K59.00 [place] [address] 15015- 2984 Feb, Neuroforaminal stenosis of spine M99.89 ; Mixed hyperlipidemia E78.2 ; Neck pain M54.2 ; Essential hypertension I10 ; Abnormal fasting glucose R73.09 ; Hypokalemia E87.6 and Constipation K59.00 [place] [id number] [place] [address] 70575- 6744 Feb, Elevated fasting blood sugar R73.01 [place] [id number] [place] [address] 37463- 5339 Feb, Elevated fasting blood sugar R73.01 [place] [id number] [place] [address] 10512- 2644 Feb, Hair loss L65.9 [place] [id number] [place] [address] 95582- 8644 Feb, Sinusitis J32.9 ; Essential hypertension I10 and Hair loss L65.9 [place] [id number] [place] [address] 62855- 2835 Jan, [facility] [id number] [place] [address] 98542- 1837 Jan, Essential hypertension I10 ; Neuroforaminal stenosis of spine M99.89 ; Neck pain M54.2 ; Mixed hyperlipidemia E78.2 and Anxiety F41.9 [facility] [id number] [place] [address] 82950- 0344 Jan, [place] [address] 95837- 0896 Jan, Mixed hyperlipidemia E78.2 ; Essential (primary) hypertension I10 ; Strain of muscle, fascia and tendon at neck level, subsequent encounter S16.1XXD and Tension-type headache, unspecified, not intractable G44.209 [place] [address] 44225- 1689 Dec, Lumbar back pain 724.2 and Neuroforaminal stenosis of spine 724.00 [place] [address] 58462- 5179 Nov, [place] [address] 45288- 2249 Nov, Lumbar back pain 724.2 and Neuroforaminal stenosis of spine 724.00 [place] [id number] [place] [address] 71527- 9479 Nov, Edema 782.3 ; Lumbar back pain 724.2 ; Essential hypertension, benign 401.1 ; Hyperlipemia 272.4 ; Neuroforaminal stenosis of spine 724.00 and Post-concussion headache 339.20 [place] [address] 20291- 4317 Nov, [place] [address] 04882- 9605 Nov, [place] [id number] [place] [address] 83595- 0417 Oct, Essential hypertension, benign 401.1 [facility] [address] [address]- 0102 Oct, Edema 782.3 ; Lumbar back pain 724.2 ; Essential hypertension, benign 401.1 ; Hyperlipemia 272.4 ; Neuroforaminal stenosis of spine 724.00 and Post-concussion headache 339.20 [facility] [id number] [place] [address] 98768- 4693 Oct, [facility] [id number] [place] [address] 55341- 8357 Oct, Edema 782.3 [facility] [id number] [place] [address] 83609- 6456 Oct, Lumbar back pain 724.2 [place] [id number] [place] [address] 78773- 1436 Oct, Cervicalgia 723.1 ; Lumbar back pain 724.2 and High risk medication use V58.69 [facility] [id number] [place] [address] 33100- 7036 Sep, [place] [id number] [place] [address] 59513- 1242 Sep, Lumbar strain 847.2 [place] [id number] [place] [address] 28850- 6698 August, Edema 782.3 and Eustachian tube dysfunction 381.81 [facility] [address] [place] [address] 26428- 5061 August, [facility] [address] [place] [address] 01904- 3485 August, Eustachian tube dysfunction 381.81 [facility] [address] [place] [address] 77934- 2365 Jul, Otalgia 388.70 and Otitis media 382.9 [place] [id number] [place] [address] 21365- 5750 28 Jul, 2014 [facility] [place] [facility] [address] [id number] [place] [address]- 1604 28 Jul, 2014 [facility] [place] [facility] [address] [id number] [place] [address]- 8797 28 Jul, 2014 [facility] [place] [facility] [address] [facility] [id number] [place] [address] 14 Jul, 2014 [facility] [place] [facility] [address] [id number] [place] [address] 13 Jul, 2014 [facility] [place] [facility] [address] [id number] [place] [address] 27 Jun, 2014 [facility] [place] [facility] [address] [facility] [id number] [place] [address] 27 Jun, 2014 [facility] [place] [facility] [address] [facility] [id number] [place] [address]- 140[address] 16 Jun, 2014 [facility] [place] [facility] [address] [facility] [id number] [place] [address]- [address] May, 2014 [facility] [place] [facility] [address] [id number] [place] [address] May, 2014 [facility] [place] [facility] [address] [facility] [id number] [place] [address]- [address] 23 May, 2014 [facility] [place] [facility] [address] [facility] [id number] [place] [address] 8094 May, 2014 [facility] [place] [facility] [address] [facility] [id number] [place] [address]- 7989 17 May, 2014 [facility] [place] [facility] [address] [facility] [id number] [place] [address]- 9014 May, 2014 [facility] [place] [facility] [address] [facility] [id number] [place] [address]- 33[address] 09 May, 2014 [facility] [place] [facility] [address] [facility] [id number] [place] [address] [address] 05 Fe2014 [facility] [place] [facility] [address] [id number] [place] [address] May, [facility] [place] [facility] [address] [id number] [place] [address]- [address] May, [facility] [place] [facility] [address] [id number] [place] [address] Apr, [facility] [place] [facility] [address] [id number] [place] [address] Apr, [facility] [place] [facility] [address] [id number] [place] [address] Apr, [facility] [place] [facility] [address] [id number] [place] [address] 3[address] Apr, [facility] [place] [facility] [address] [id number] [place] [address]- 4175 Apr, [facility] [place] [facility] [address] [id number] [place] [address]- 3735 Apr, [facility] [place] [facility] [address] [id number] [place] [address]- 9249 Apr, [facility] [place] [facility] [address] [id number] [place] [address]- 1526 Apr, [facility] [place] [facility] [address] [id number] [place] [address]- 1305 Apr, [facility] [place] [facility] [address] [id number] [place] [address]- 9543 Apr, [facility] [place] [facility] [address] [id number] [place] [address]- 1423 Apr, [facility] [place] [facility] [address] [id number] [place] [address]- 9862 Apr, [facility] [place] [facility] [address] [id number] [place] [address]- 4966 Apr, [facility] [place] [facility] [address] [id number] [address] Apr, [facility] [place] [facility] [address] [id number] [place] [address]- 3791 Apr, [facility] [place] [facility] [address] [id number] [place] [address] Mar, [facility] [place] [facility] [address] [id number] [place] [address] Mar, [facility] [place] [facility] [address] [id number] [place] [address]- 6831 Mar, [facility] [place] [facility] [address] [id number] [place] [address]- 8980 Mar, [facility] [place] [facility] [address] [id number] [place] [address]- 0518 Feb, [facility] [place] [facility] [address] [id number] [place] [address]- 3273 Feb, [facility] [place] [facility] [address] [id number] [place] [address]- 1783 Feb, [facility] [place] [facility] [address] [id number] [place] [address]- 7307 Feb, [facility] [place] [facility] [address] [id number] [place] [address]- 9017 Jan, [facility] [place] [facility] [address] [id number] [place] [address]- 26[address] Jan, [facility] [place] [facility] [address] [id number] [place] [address]- 1529 Jan, [facility] [place] [facility] [address] [id number] [place] [address]- 2790 Jan, [facility] [place] [facility] [address] [id number] [place] [address]- 4491 Jan, [facility] [place] [facility] [address] [id number] [place] [address]- 9570 Jan, [facility] [place] [facility] [address] [id number] [place] [address] 2545 Jan, [facility] [place] [facility] [address] [id number] [place] [address]- 6945 Jan, [facility] [place] [facility] [address] [id number] [place] [address]- 9856 Dec, [facility] [place] [facility] [address] [id number] [place] [address]- 3970 Dec, [facility] [place] [facility] [address] [id number] [place] [address]- 2374 Dec, [facility] [place] [facility] [address] [id number] [place] [address]- 5150 Dec, [facility] [place] [facility] [address] [id number] [place] [address]- 2468 Oct, [facility] [place] [facility] [address] [id number] [place] [address]- 2836 Oct, [facility] [place] [facility] [address] [id number] [place] [address]- 6433 Oct, [facility] [place] [facility] [address] [id number] [place] [address]- 1750 Oct, [facility] [place] [facility] [address] [id number] [place] [address]- 5591 Oct, [facility] [place] [facility] [address] [id number] [place] [address]- 4826 Oct, [facility] [place] [facility] [address] [id number] [place] [address]- 0166 Oct, [facility] [place] [facility] [address] [id number] [place] [address]- 6653 Oct, [facility] [place] [facility] [address] [id number] [place] [address]- 8415 Sep, [facility] [place] [facility] [address] [id number] [id number] [address]20 Sep, [facility] [place] [facility] [address] [id number] [place] [address]- 5397 Sep, [facility] [place] [facility] [address] [id number] [place] [address]- 7798 Sep, [facility] [place] [facility] [address] [id number] [place] [address]- 8611 Sep, [facility] [place] [facility] [address] [id number] [place] [address]- 0206 Sep, [facility] [place] [facility] [address] [id number] [place] [address]- 9840 Sep, [facility] [place] [facility] [address] [id number] [place] [address]- 9404 Sep, [facility] [place] [facility] [address] [id number] [place] [address]- 3118 Sep, [facility] [place] [facility] [address] [id number] [place] [address]- 5870 Sep, [facility] [place] [facility] [address] [id number] [place] [address]- 2935 August, [facility] [place] [facility] [address] [id number] [place] [address]- 5382 August, [facility] [place] [facility] [address] [id number] [place] [address]- 1764 August, [facility] [place] [facility] [address] [id number] [place] [address]- 5169 August, [facility] [place] [facility] [address] [id number] [place] [address]- 7290 August, [facility] [place] [facility] [address] [id number] [place] [address]- 2090 August, [facility] [place] [facility] [address] [id number] [place] [address]- 8419 August, [facility] [place] [facility] [address] [id number] [place] [address]- 8920 August, [facility] [address] [id number] [place] [address]- 7305 August, [facility] [place] [facility] [address] [id number] [place] [address]- 3422 August, [facility] [place] [facility] [address] [id number] [place] [address]- 3337 August, [facility] [place] [facility] [address] [id number] [place] [address]- 7489 August, [facility] [place] [facility] [address] [id number] [place] [address]- 7224 Jul, [facility] [place] [facility] [address] [id number] [place] [address]- 0974 Jul, [facility] [place] [facility] [address] [id number] [place] [address]- 5819 Jul, [facility] [place] [facility] [address] [id number] [place] [address]- 7902 Jul, [facility] [place] [facility] [address] [id number] [place] [address]- 1990 Jul, [facility] [place] [facility] [address] [id number] [place] [address]- 6084 Jul, [facility] [place] [facility] [address] [id number] [place] [address]- 1124 Jun, [facility] [place] [facility] [address] [id number] [place] [address]- 5278 Jun, [facility] [place] [facility] [address] [id number] [place] [address]- 4455 May, [facility] [place] [facility] [address] [id number] [place] [address]- 7971 May, [facility] [place] [facility] [address] [id number] [place] [address]- 0481 Apr, [facility] [place] [facility] [address] [id number] [place] [address]- 7769 Apr, [facility] [place] [facility] [address] [id number] [place] [address]- 8172 Apr, [facility] [place] [facility] [address] [id number] [place] [address]- 2727 Apr, [facility] [place] [facility] [address] [id number] [place] [address]- 3475 Apr, [facility] [place] [facility] [address] [id number] [place] [address]- 5030 Apr, [facility] [place] [facility] [address] [id number] [place] [address]- 2806 Apr, [facility] [place] [facility] [address] [id number] [place] [address]- 0913 Apr, [facility] [place] [facility] [address] [id number] [place] [address]- 3669 Apr, [facility] [place] [facility] [address] [id number] [place] [address]- 7815 Apr, [facility] [place] [facility] [address] [id number] [place] [address]- 9498 Apr, [facility] [place] [facility] [address] [id number] [place] [address]- 6540 Apr, [facility] [place] [facility] [address] [id number] [place] [address]- 7735 Apr, [facility] [place] [facility] [address] [id number] [place] [address]- 8923 Mar, [facility] [place] [facility] [address] [id number] [place] [address]- 3888 Mar, [facility] [place] [facility] [address] [id number] [place] [address]- 5123 Mar, [facility] [place] [facility] [address] [id number] [address]- 2986 Mar, [facility] [place] [facility] [address] [id number] [place] [address]- 2634 Feb, [facility] [place] [facility] [address] [id number] [place] [address]- 7851 Feb, [facility] [place] [facility] [address] [id number] [place] [address]- 7730 Feb, [facility] [place] [facility] [address] [id number] [place] [address]- 1614 Feb, [facility] [place] [facility] [address] [id number] [place] [address]- 5572 Jan, [facility] [place] [facility] [address] [id number] [place] [address]- 9275 Jan, [facility] [place] [facility] [address] [id number] [place] [address]- 7653 Jan, [facility] [place] [facility] [address] [id number] [place] [address]- 4599 Jan, [facility] [place] [facility] [address] [id number] [place] [address]- 8225 Jan, [facility] [place] [facility] [address] [id number] [place] [address]- 6521 Jan, [facility] [place] [facility] [address] [id number] [place] [address]- 9836 Jan, [facility] [place] [facility] [address] [id number] [place] [address]- 1092 Jan, [facility] [place] [facility] [address] [id number] [place] [address]- 3946 Jan, [facility] [place] [facility] [address] [id number] [place] [address]- 4865 26 Dec, 2012 [facility] [place] [facility] [address] [id number] [place] [address]- 9634 16 Dec, 2012 [facility] [place] [facility] [address] [id number] [place] [address]- 1609 16 Dec, 2012 [facility] [address] [id number] [place] [address]- 6300 Dec, [facility] [address] [id number] [place] [address]- 3302 Nov, [facility] [address] [id number] [place] [address]- 3087 Nov, [facility] [address] [id number] [place] [address]- 2249 Nov, [facility] [address] [id number] [place] [address]- 5632 Nov, [facility] [address] [id number] [place] [address]- 6812 Oct, [facility] [address] [id number] [place] [address]- 0885 Sep, [facility] [address] [id number] [place] [address]- 3394 August, [facility] [address] [id number] [place] [address]- 8221 August, [facility] [address] [id number] [place] [address]- 7000 August, [facility] [address] [id number] [place] [address]- 4536 August, [facility] [address] [id number] [place] [address]- 1847 August, [facility] [address] [id number] [place] [address]- 0154 August, [facility] [address] [id number] [place] [address]- 5801 August, [facility] [address] [id number] [place] [address]- 2260 August, [facility] [address] [id number] [place] [address]- 2924 August, [facility] [address] [id number] [place] [address]- 5399 August, [facility] [address] [id number] [place] [address]- 9798 August, [facility] [address] [id number] [place] [address]- 3571 August, [facility] [address] [id number] [place] [address]- 0547 Jul, [facility] [address] [id number] [place] [address]- 2523 Jul, [facility] [address] [id number] [place] [address]- 2554 Jul, [facility] [address] [id number] [place] [address]- 8567 Jul, [facility] [address] [id number] [place] [address]- 4314 Jul, [facility] [address] [id number] [place] [address]- 7293 Jul, [facility] [address] [id number] [place] [address]- 6926 Jul, [facility] [address] [id number] [place] [address]- 1725 Jul, [facility] [place] [facility] [address] [id number] [place] [address]- 1420 Jul, [facility] [place] [facility] [address] [id number] [place] [address]- 7666 Jul, [facility] [place] [facility] [address] [id number] [place] [address]- 3518 Jul, [facility] [place] [facility] [address] [id number] [place] [address]- 1346 Jun, [facility] [address] [id number] [place] [address] 2546 Jun, [facility] [place] [facility] [address] [id number] [place] [address]- 0176 Jun, [facility] [address] [id number] [place] [address]- 0066 Jun, [facility] [place] [facility] [address] [id number] [place] [address]- 4662 May, [facility] [place] [facility] [address] [id number] [place] [address]- 4876 May, [facility] [place] [facility] [address] [id number] [place] [address]- 9806 May, [facility] [address] [id number] [place] [address]- 4026 May, [facility] [address] [id number] [place] [address] 2541 May, [facility] [address] [id number] [place] [address]- 3592 May, [facility] [address] [id number] [place] [address]- 2509 Apr, [facility] [address] [id number] [place] [address] 2546 Apr, [facility] [place] [facility] [address] [id number] [place] [address] 254 30 Apr, 2012 [facility] [place] [facility] [address] [id number] [place] [address] 2549 Apr, [facility] [place] [facility] [address] [id number] [place] [address] 2546 Mar, [facility] [address] [id number] [place] [address] 254 Mar, [facility] [place] [facility] [address] [id number] [place] [address]- 8194 14 Mar, 2012 [facility] [place] [facility] [address] [id number] [place] 8074 Mar, [facility] [place] [facility] [address] [id number] [place] [address]- 1384 Mar, [facility] [place] [facility] [address] [id number] [place] [address]- 0366 Mar, [facility] [place] [facility] [address] [id number] [place] [address]- 3040 Mar, [facility] [place] [facility] [address] [id number] [place] [address]- 5043 Feb, [facility] [place] [facility] [address] [id number] [place] [address]- 2303 Feb, [facility] [place] [facility] [address] [id number] [place] [address]- 6419 Feb, [facility] [place] [facility] [address] [id number] [place] [address]- 3119 Feb, [facility] [place] [facility] [address] [id number] [place] [address]- 2474 Jan, [facility] [place] [facility] [address] [id number] [place] [address]- 3131 Jan, [facility] [place] [facility] [address] [id number] [place] [address]- 0600 Jan, [facility] [place] [facility] [address] [id number] [place] [address]- 4658 Jan, [facility] [place] [facility] [address] [id number] [place] [address]- 2738 Jan, [facility] [place] [facility] [address] [id number] [place] 9724 Jan, [facility] [place] [facility] [address] [id number] [place] [address]- 9316 Dec, [facility] [address] [id number] [place] [address]- 7541 Dec, [facility] [place] [facility] [address] [id number] [place] [address]- 2106 Nov, [facility] [place] [facility] [address] [id number] [place] [address]- 9350 Sep, [facility] [place] [facility] [address] [id number] [place] [address]- 8982 August, [facility] [place] [facility] [address] [id number] [place] [address]- 3122 August, [facility] [place] [facility] [address] [id number] [place] [address]- 4480 August, [facility] [address] [id number] [place] [address]- 2652 August, [facility] [place] [facility] [address] [id number] [place] [address]- 0909 August, [facility] [place] [facility] [address] [id number] [place] [address]- 6337 Jun, [facility] [place] [facility] [address] [id number] [place] [address]- 0143 Jun, [facility] [place] [facility] [address] [id number] [place] [address]- 4949 Apr, [facility] [place] [facility] [address] [id number] [place] [address]- 9811 Apr, [facility] [place] [facility] [address] [id number] [place] [address]- 4627 Mar, [facility] [place] [facility] [address] [id number] [place] [address]- 2653 Feb, [facility] [place] [facility] [address] [id number] [place] [address]- 0351 Feb, [facility] [place] [facility] [id number] [address]- 2546 14 Feb, 2011 [facility] [id number] [place] [address] 2546 Jan, [facility] [id number] [address]- 2546 Jan, [facility] [id number] [place] [address]- 2546 Jan, [facility] [id number] [address]- 2546 Jan, [facility] [id number] [place] [address] May, [facility] [id number] [place] [address] Mar, [facility] [id number] [place] [address] Oct, [facility] [id number] [address] Sep, [facility] [id number] [address] Mar, [facility] [id number] [address] Jan, [facility] [id number] [address] Jan, [facility] [id number] [address] May, IMMUNIZATIONS No Known Immunizations SOCIAL HISTORY Never Assessed REASON FOR VISIT Pain (acute)-tjanssenMA, --yesterday afternoon rolled rt ankle when she almost fell. @ 730 this am she woke up with bad pain and swelling. PLAN OF CARE Activity Details Follow Up prn Reason: VITAL SIGNS Height 62 in 2017-07-03 Weight 176.6 lbs 2017-07-03 Temperature 97.4 degrees Fahrenheit 2017-07-03 Heart Rate 80 bpm 2017-07-03 Respiratory Rate 20 2017-07-03 BMI 32.30 kg/m2 2017-07-03 Blood pressure systolic 142 mmHg 2017-07-03 Blood pressure diastolic 90 mmHg 2017-07-03 MEDICATIONS Medication Instructions Dosage Frequency Start Date End Date Duration Status Lidocaine 4 % Externally Three times a day prn 1 application to affected area as needed Feb, Active Klor-Con 10 10 MEQ Orally Once a day 2 tablet with food 24h Active Ibuprofen 800 MG Orally PRN for pain 1 tablet as needed Active Triamterene-HCTZ 37.5-25 MG Orally Once a day 1 tablet in the morning 24h 30 Active Meclizine HCl 25 MG Orally Once a day 1 tablet as needed 24h Active Hydrocodone-Acetaminophen 5-325 MG Orally 3 -4 times a day prn. must last 4 weeks 1 tablet as needed Jun, Active Pravastatin Sodium 20 mg TAKE ONE TABLET BY MOUTH AT BEDTIME 30 Active Cyclobenzaprine HCl 10 MG Orally Three times a day 1 tablet as needed 8h Active Amlodipine Besylate 5 mg Orally Once a day 1 tablet 24h Active RESULTS Name Result Date Reference Range Xray : Ankle, Right 3 views (IN HOUSE) 2017-07-03 PROCEDURES Procedure Date Ordered Result Body Site X-RAY EXAM OF ANKLE July 03, 2017 INSTRUCTIONS MEDICATIONS ADMINISTERED No Known [...]
--- OUTSIDE RECORDS SUMMARY | 2018-06-10 05:05 | XMS REPORT ---
Author Author SIMA HODGES [facility] Address [address] [place] [address] Care Team Providers Care Financial Systems Manager Name Role Phone SIMA HODGES Unavailable PROBLEMS Type Condition ICD9-CM Code EPO93-AR Code Onset Dates Condition Status SNOMED Code Problem Anxiety F41.9 Active 84088464 Problem Abnormal glucose R73.09 Active 456996593 Problem Chronic pain due to trauma G89.21 Active 286332872 Problem Hypokalemia E87.6 Active 46857079 Problem Neck pain M54.2 Active 35013148 Problem Neuroforaminal stenosis of spine M99.89 Active 692787811800 Problem Mixed hyperlipidemia E78.2 Active 41972064 Problem Essential hypertension I10 Active [id number] ALLERGIES No Information ENCOUNTERS Encounter Location Date Diagnosis [facility] [id number] [place] [address] 10522- 9773 Oct, [facility] [id number] [place] [address] 84641- 3082 Oct, [facility] [id number] [place] [address] 72344- 6805 Oct, [facility] [id number] [place] [address] 12207- 9428 Oct, Neuroforaminal stenosis of spine M99.89 [facility] [id number] [place] [address] 60960- 3547 Oct, Visit for TB skin test Z11.1 [facility] [id number] [place] [address] 56716- 0712 Oct, Cystitis without hematuria N30.90 [facility] [id number] [place] [address] 94204- 0276 28 Sep, 2017 Screening breast examination Z12.39 [facility] [id number] [place] [address] 15611- 9596 26 Sep, 2017 Dysuria R30.0 and Cystitis without hematuria N30.90 [facility] [id number] [place] [address] 91949- 0682 14 Sep, 2017 Essential hypertension I10 and Neuroforaminal stenosis of spine M99.89 [facility] [address] 67377- 6502 04 Sep, 2017 Abnormal glucose R73.09 [facility] [address] 59404- 2014 August, Lateral epicondylitis, right elbow M77.11 [facility] [address] 91960- 2593 August, Screen for STD (sexually transmitted disease) Z11.3 [facility] [address] 79822- 6839 August, Neuroforaminal stenosis of spine M99.89 ; Mixed hyperlipidemia E78.2 ; Elevated fasting glucose R73.01 ; Screening mammogram, encounter for Z12.31 and Encounter for well woman exam without gynecological exam Z00.00 [facility] [id number] [place] [address] 85022- 6795 August, Neuroforaminal stenosis of spine M99.89 [facility] [id number] [place] [address] 92099- 1392 August, Essential hypertension I10 ; Hypokalemia E87.6 and Mixed hyperlipidemia E78.2 [facility] [id number] [place] [address] 48260- 5080 Jul, [facility] [id number] [place] [address] 96373- 5152 Jul, Neuroforaminal stenosis of spine M99.89 [facility] [address] [place] [address]- 6751 Jul, Lateral epicondylitis, right elbow M77.11 [facility] [id number] [place] [address] 77486- 9029 Jul, [facility] [id number] [place] [address] 63003- 6053 Jun, High ankle sprain of right lower extremity, initial encounter S93.431A [facility] [facility] [address] 37668- 3514 Jun, Essential hypertension I10 [facility] [address] 34909- 3697 Jun, [facility] [id number] [place] [address] 79587- 4961 Jun, [facility] [address] 98752- 5203 Jun, Neuroforaminal stenosis of spine M99.89 [facility] [id number] [place] [address] 53817- 6195 Jun, Pain of right upper extremity M79.601 and Essential hypertension I10 [facility] [id number] [place] [address] 14603- 1556 Jun, [facility] [id number] [place] [address] 79858- 1042 Jun, Dysuria R30.0 ; Acute cystitis with hematuria N30.01 and Screen for STD (sexually transmitted disease) Z11.3 [facility] [id number] [place] [address] 23892- 3824 May, Chronic pain due to trauma G89.21 [facility] [id number] [place] [address] 17331- 8142 May, Essential hypertension I10 [facility] [address] 49177- 0832 May, Neuroforaminal stenosis of spine M99.89 [facility] [id number] [place] [address] 86343- 8486 Apr, Allergic reaction, initial encounter T78.40XA [facility] [id number] [place] [address] 64357- 9956 Apr, Low back pain, unspecified back pain laterality, unspecified chronicity, with sciatica presence unspecified M54.5 ; Acute cystitis with hematuria N30.01 ; Neuroforaminal stenosis of spine M99.89 ; Bilateral acute serous otitis media, recurrence not specified H65.03 ; Mixed hyperlipidemia E78.2 ; Essential hypertension I10 ; Immunization counseling Z71.89 and Encounter for immunization Z23 [facility] [id number] [place] [address] 69274- 6916 Apr, Neck pain M54.2 [facility] [address] 50274- 1375 Mar, Neuroforaminal stenosis of spine M99.89 [facility] [id number] [place] [address] 43269- 5296 Mar, Pharyngitis due to other organism J02.8 [facility] [id number] [place] [address] 06706- 4618 Feb, Neuroforaminal stenosis of spine M99.89 [facility] [id number] [place] [address] 76070- 8880 08 Feb, 2017 UTI (urinary tract infection) N39.0 [facility] [id number] [place] [address] 97552- 5000 07 Feb, 2017 Recent urinary tract infection Z87.440 ; Neuroforaminal stenosis of spine M99.89 ; Neck pain M54.2 ; Chronic pain due to trauma G89.21 and Recurrent UTI N39.0 [facility] [id number] [place] [address] 12307- 2036 Feb, [facility] [id number] [place] [address] 62629- 1622 Jan, Neuroforaminal stenosis of spine M99.89 [facility] [address] 22157- 1274 Dec, Neuroforaminal stenosis of spine M99.89 [facility] [id number] [place] [address] 91500- 8986 18 Dec, 2016 Acute seasonal allergic rhinitis due to pollen J30.1 [facility] [id number] [place] [address] 87171- 6443 08 Dec, 2016 [facility] [address] 15740- 2936 08 Dec, 2016 Acute seasonal allergic rhinitis, unspecified trigger J30.2 ; Allergic conjunctivitis of both eyes H10.13 and Dysfunction of both eustachian tubes H69.83 [facility] [address] 36778- 8138 Dec, [facility] [address] 19581- 8518 Dec, Nevus D22.9 [facility] [address] 90066- 2873 Nov, Chronic pain due to trauma G89.21 and Neuroforaminal stenosis of spine M99.89 [facility] [id number] [place] [address] 95700- 5208 Nov, Neuroforaminal stenosis of spine M99.89 ; Essential hypertension I10 ; Mixed hyperlipidemia E78.2 ; Hypokalemia E87.6 ; Neck pain M54.2 and Nevus D22.9 [facility] [id number] [place] [address] 71800- 7273 Oct, Neuroforaminal stenosis of spine M99.89 [facility] [id number] [place] [address] 35644- 9402 Sep, Neuroforaminal stenosis of spine M99.89 [facility] [address] [id number] [address]- 9986 Sep, [facility] [address] [facility] [id number] [place] [address] 56807- 5616 August, [facility] [address] [facility] [id number] [place] [address] 02417- 3574 August, Neck pain M54.2 and Neuroforaminal stenosis of spine M99.89 [facility] [address] [id number] [place] [address]- 0597 August, Routine gynecological examination Z01.419 and Screening breast examination Z12.39 [facility] [address] [facility] [id number] [place] [address] 42187- 0854 Jul, [facility] [id number] [place] [address] 32184- 3225 Jul, [facility] [id number] [place] [address] 99703- 9160 Jul, Neuroforaminal stenosis of spine M99.89 [facility] [address] [facility] [id number] [place] [address] 92726- 2454 Jul, [facility] [address] [facility] [id number] [place] [address] 96223- 5955 Jul, 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 [facility] [address] [facility] [id number] [place] [address] 23628 2540 Jul, [facility] [address] [facility] [id number] [place] [address]- 2549 Jul, [facility] [address] [facility] [id number] [place] [address] 73455- 5601 Jun, Neuroforaminal stenosis of spine M99.89 [facility] [address] [facility] [id number] [place] [address]- 2546 Jun, Uterine leiomyoma, unspecified location D25.9 and Allergic reaction caused by a drug, initial encounter T78.40XA [facility] [id number] [place] [address] 74112- 9976 Jun, [facility] [address] 77708- 4571 May, UTI symptoms R39.9 and Pain of right sacroiliac joint M53.3 [facility] [address] 40549- 7840 May, Neuroforaminal stenosis of spine M99.89 [facility] [address] 37796- 9693 May, [facility] [address] 01051- 5401 May, Acute mucoid otitis media of left ear H65.112 and Acute non- recurrent maxillary sinusitis J01.00 [facility] [address] 56924- 4760 May, Acute bacterial conjunctivitis of both eyes H10.33 ; Left arm pain M79.602 and Hypokalemia E87.6 [facility] [id number] [place] [address] 58742- 8430 Apr, [facility] [id number] [place] [address] 12329- 3306 Apr, Neuroforaminal stenosis of spine M99.89 ; Neck pain M54.2 ; Chronic pain due to trauma G89.21 ; Mixed hyperlipidemia E78.2 ; Essential hypertension I10 and Hypokalemia E87.6 [facility] [address] 90082- 6907 Mar, Oral candidiasis B37.0 ; Neuroforaminal stenosis of spine M99.89 ; Neck pain M54.2 and Chronic pain due to trauma G89.21 [facility] [address] 74370- 0700 Feb, [facility] [address] [address]- 0595 Feb, [facility] [id number] [place] [address] 33758- 3771 Feb, UTI (urinary tract infection) N39.0 [facility] [id number] [place] [address] 72980- 5361 Feb, Dysuria R30.0 [facility] [id number] [place] [address] 96404- 8560 Feb, Dysuria R30.0 [facility] [id number] [place] [address] 39963- 1875 Feb, Neuroforaminal stenosis of spine M99.89 ; Neck pain M54.2 ; Essential hypertension I10 ; Chronic pain due to trauma G89.21 ; Dysuria R30.0 ; Abnormal MRI, shoulder R93.8 and Acute cystitis without hematuria N30.00 [facility] [id number] [place] [address] 45203- 3702 Jan, [facility] [id number] [place] [address] 13864- 9112 Jan, [facility] [id number] [place] [address] 28821- 4017 Jan, [facility] [id number] [place] [address] 21530- 0821 Jan, Abnormal MRI R93.8 [facility] [id number] [place] [address] 08289- 9928 Dec, [facility] [id number] [place] [address] 20602 -1316 Dec, Acute pain of left shoulder M25.512 [facility] [id number] [place] [address] 61124- 2531 Dec, [facility] [id number] [address]- 0288 08 Dec, 2015 [facility] [id number] [place] [address] 38475- 5426 07 Dec, 2015 Acute pain of left shoulder M25.512 [facility] [address] [address]- 1843 Nov, [facility] [id number] [place] [address] 38439- 6778 Nov, Neuroforaminal stenosis of spine M99.89 ; Neck pain M54.2 ; Abnormal mammogram R92.8 ; Essential hypertension I10 and Chronic pain due to trauma G89.21 [facility] [id number] [place] [address] 74406- 3620 Nov, [facility] [id number] [place] [address] 76507- 1651 Oct, Acute stress disorder F43.0 [facility] [id number] [address]- 9601 Oct, [facility] [id number] [place] [address] 99706- 7661 Oct, [facility] [address] [address]- 9455 Oct, [facility] [address] [address]- 6426 Sep, [facility] [address] [address]- 1571 August, [facility] [id number] [place] [address] 38200- 9769 Jul, Neuroforaminal stenosis of spine M99.89 ; Neck pain M54.2 ; Abnormal mammogram R92.8 and Essential hypertension I10 [facility] [address] [address]- 4420 Jul, [facility] [address] [address]- 7681 Jul, [facility] [id number] [place] [address] 94835- 6126 Jul, Abnormal mammogram R92.8 [facility] [address] [address] 2546 Jul, [facility] [id number] [place] [address] 59236- 2106 Jul, UTI (urinary tract infection) N39.0 [facility] [id number] [place] [address] 59698- 5750 Jul, Dysuria R30.0 [facility] [id number] [place] [address] 47108- 8986 Jun, [facility] [id number] [place] [address] 93340- 6985 Jun, [facility] [id number] [place] [address] 27934 2544 Jun, Hypokalemia E87.6 and Hematuria R31.9 [facility] [id number] [place] [address] 68777 2540 Jun, Hypokalemia E87.6 [facility] [id number] [place] [address] 05400 2546 Jun, [facility] [id number] [place] [address] 05482 2543 18 Jun, 2015 Hypokalemia E87.6 [facility] [id number] [place] [address] 92726 2546 18 Jun, 2015 Hypokalemia E87.6 [facility] [address] [address]- 2546 15 Jun, 2015 Neuroforaminal stenosis of spine M99.89 ; Hypokalemia E87.6 ; Neck pain M54.2 ; Essential hypertension I10 ; Mixed hyperlipidemia E78.2 and Screening breast examination Z12.39 [facility] [id number] [place] [address] 22052- 1168 Jun, Dysuria R30.0 ; UTI (urinary tract infection) N39.0 and Hematuria R31.9 [facility] [facility] [address] 60058- 9863 May, [facility] [address] 54793- 1978 May, High risk sexual behavior Z72.51 ; Hypokalemia E87.6 ; Neuroforaminal stenosis of spine M99.89 ; Neck pain M54.2 ; Essential hypertension I10 ; Mixed hyperlipidemia E78.2 ; STD exposure Z20.2 and Concern about STD in female without diagnosis Z71.1 [place] [address] 79426- 1850 16 May, 2015 Neuroforaminal stenosis of spine M99.89 ; Neck pain M54.2 ; Hypokalemia E87.6 ; Essential hypertension I10 and Mixed hyperlipidemia E78.2 [place] [address] 96815- 4707 May, [facility] [id number] [place] [address] 90876 -6539 May, High risk sexual behavior Z72.51 ; STD exposure Z20.2 and Concern about STD in female without diagnosis Z71.1 [place] [address] 24189- 8170 May, [facility] [address] 67013- 3222 Apr, Neuroforaminal stenosis of spine M99.89 ; Mixed hyperlipidemia E78.2 ; Essential hypertension I10 and Hypokalemia E87.6 [place] [address] 20154- 2502 Mar, [facility] [id number] [place] [address] 14826- 0756 Mar, Hypokalemia E87.6 [facility] [id number] [place] [address] 52275- 9664 Mar, Neuroforaminal stenosis of spine M99.89 ; Mixed hyperlipidemia E78.2 ; Neck pain M54.2 ; Essential hypertension I10 ; Abnormal fasting glucose R73.09 ; Hypokalemia E87.6 and Constipation K59.00 [place] [id number] [place] [address] 38064- 8864 Feb, Neuroforaminal stenosis of spine M99.89 ; Mixed hyperlipidemia E78.2 ; Neck pain M54.2 ; Essential hypertension I10 ; Abnormal fasting glucose R73.09 ; Hypokalemia E87.6 and Constipation K59.00 [place] [address] 08584- 3898 Feb, Elevated fasting blood sugar R73.01 [place] [address] 01245- 5404 Feb, Elevated fasting blood sugar R73.01 [place] [address] 25645- 1708 Feb, Hair loss L65.9 [place] [id number] [place] [address] 24186- 9312 Feb, Sinusitis J32.9 ; Essential hypertension I10 and Hair loss L65.9 [place] [id number] [place] [address] 85983- 7241 Jan, [facility] [facility] [address] 65549- 2930 Jan, Essential hypertension I10 ; Neuroforaminal stenosis of spine M99.89 ; Neck pain M54.2 ; Mixed hyperlipidemia E78.2 and Anxiety F41.9 [place] [address] 47195- 7812 Jan, [facility] [id number] [place] [address] 42631- 7003 Jan, Mixed hyperlipidemia E78.2 ; Essential (primary) hypertension I10 ; Strain of muscle, fascia and tendon at neck level, subsequent encounter S16.1XXD and Tension-type headache, unspecified, not intractable G44.209 [place] [id number] [place] [address] 07118- 6164 Dec, Lumbar back pain 724.2 and Neuroforaminal stenosis of spine 724.00 [place] [id number] [place] [address] 20277- 5471 Nov, [facility] [id number] [place] [address] 75212- 6617 Nov, Lumbar back pain 724.2 and Neuroforaminal stenosis of spine 724.00 [place] [id number] [place] [address] 27989- 4600 Nov, Edema 782.3 ; Lumbar back pain 724.2 ; Essential hypertension, benign 401.1 ; Hyperlipemia 272.4 ; Neuroforaminal stenosis of spine 724.00 and Post-concussion headache 339.20 [place] [id number] [place] [address] 24148- 1295 Nov, [facility] [facility] [address] [address]- 6713 Nov, [facility] [id number] [place] [address] 25117- 4422 Oct, Essential hypertension, benign 401.1 [place] [id number] [place] [address] 13129- 9702 Oct, Edema 782.3 ; Lumbar back pain 724.2 ; Essential hypertension, benign 401.1 ; Hyperlipemia 272.4 ; Neuroforaminal stenosis of spine 724.00 and Post-concussion headache 339.20 [place] [id number] [address]- 4419 Oct, [facility] [address] [address]- 4087 Oct, Edema 782.3 [facility] [id number] [place] [address] 49982- 2253 Oct, Lumbar back pain 724.2 [facility] [id number] [place] [address] 00654- 5784 Oct, Cervicalgia 723.1 ; Lumbar back pain 724.2 and High risk medication use V58.69 [facility] [id number] [place] [address] 99994- 4017 Sep, [facility] [id number] [place] [address] 49523- 1692 Sep, Lumbar strain 847.2 [facility] [id number] [place] [address] 19380- 6670 August, Edema 782.3 and Eustachian tube dysfunction 381.81 [facility] [id number] [place] [address] 45358- 5681 August, [facility] [id number] [place] [address] 66841- 5744 August, Eustachian tube dysfunction 381.81 [facility] [address] [address]- 2533 Jul, Otalgia 388.70 and Otitis media 382.9 [facility] [address] [address]- 6203 Jul, [facility] [id number] [place] [address] 82548- 9324 Jul, [facility] [address] [address]- 1334 Jul, [facility] [id number] [place] [address] 62197- 8133 14 Jul, 2014 [facility] [place] [facility] [address] [id number] [place] [address]- 8262 13 Jul, 2014 [facility] [place] [facility] [address] [id number] [place] [address]- 7265 27 Jun, 2014 [facility] [place] [facility] [address] [facility] [id number] [place] [address] 27 Jun, 2014 [facility] [place] [facility] [address] [id number] [place] [address] 16 Jun, 2014 [facility] [place] [facility] [address] [id number] [place] [address] May, 2014 [facility] [place] [facility] [address] [facility] [id number] [place] [address] May, 2014 [facility] [place] [facility] [address] [facility] [id number] [place] [address] May, 2014 [facility] [place] [facility] [address] [facility] [id number] [place] [address] May, 2014 [facility] [place] [facility] [address] [facility] [id number] [place] [address] May, 2014 [facility] [place] [facility] [address] [facility] [id number] [place] [address] May, 2014 [facility] [place] [facility] [address] [facility] [id number] [place] [address] May, 2014 [facility] [place] [facility] [address] [facility] [id number] [place] [address] May, 2014 [facility] [place] [facility] [address] [facility] [id number] [place] [address]- [address] May, 2014 [facility] [place] [facility] [address] [facility] [id number] [place] [address]- [address] May, 2014 [facility] [place] [facility] [address] [facility] [id number] [place] [id number] Apr, [facility] [place] [facility] [address] [id number] [place] [address] Apr, [facility] [place] [facility] [address] [id number] [place] [address] Apr, [facility] [place] [facility] [address] [id number] [place] [address] 6[address] Apr, [facility] [place] [facility] [address] [id number] [place] [address] 4002 Apr, [facility] [place] [facility] [address] [id number] [place] [address] 3099 Apr, [facility] [place] [facility] [address] [id number] [place] [address]- 7654 Apr, [facility] [place] [facility] [address] [id number] [place] [address] 5543 Apr, [facility] [place] [facility] [address] [id number] [place] [address]- 2450 Apr, [facility] [place] [facility] [address] [id number] [place] [address]- 4900 Apr, [facility] [place] [facility] [address] [id number] [place] [address]- 0450 Apr, [facility] [place] [facility] [address] [id number] [place] [address]- 8943 Apr, [facility] [place] [facility] [address] [id number] [place] [address]- 6552 Apr, [facility] [place] [facility] [address] [id number] [place] [address]- 1978 Apr, [facility] [place] [facility] [address] [id number] [place] [address]- 5324 Apr, [facility] [place] [facility] [address] [id number] [place] [address]- 4099 Mar, [facility] [place] [facility] [address] [id number] [place] [address]- 8111 Mar, [facility] [place] [facility] [address] [id number] [place] [address]- 6748 Mar, [facility] [place] [facility] [address] [id number] [place] Mar, [facility] [place] [facility] [address] [id number] [place] [address] Feb, [facility] [place] [facility] [address] [id number] [place] [address]- 8949 Feb, [facility] [place] [facility] [address] [id number] [place] [address] Feb, [facility] [place] [facility] [address] [id number] [place] [address]- 1609 Feb, [facility] [place] [facility] [address] [id number] [place] [address]- 9507 Jan, [facility] [place] [facility] [address] [id number] [place] [address]- 7200 Jan, [facility] [place] [facility] [address] [id number] [place] [address]- 5684 Jan, [facility] [place] [facility] [address] [facility] [id number] [place] [address]- 0530 Jan, [facility] [place] [facility] [address] [id number] [place] [address]- 2951 Jan, [facility] [place] [facility] [address] [id number] [place] [address]- 3966 Jan, [facility] [place] [facility] [address] [id number] [place] [address] Jan, [facility] [place] [facility] [address] [id number] [place] [address]- 5655 Jan, [facility] [place] [facility] [address] [id number] [place] [address] Dec, [facility] [place] [facility] [address] [id number] [place] [address]- 4089 29 Dec, 2013 [facility] [place] [facility] [address] [id number] [place] [address]- 4586 04 Dec, 2013 [facility] [place] [facility] [address] [id number] [place] [address] 04 Dec, 2013 [facility] [place] [facility] [address] [id number] [place] [address]- 5846 Oct, 2013 [facility] [place] [facility] [address] [id number] [place] [address]- 6054 Oct, 2013 [facility] [place] [facility] [address] [id number] [place] [address]- 0292 Oct, [facility] [place] [facility] [address] [id number] [place] [address]- 6811 Oct, 2013 [facility] [place] [facility] [address] [id number] [place] [address]- 2158 Oct, [facility] [place] [facility] [address] [id number] [place] [address]- 7349 Oct, [facility] [place] [facility] [address] [id number] [place] [address]- 2094 Oct, [facility] [place] [facility] [address] [id number] [place] [address]- 6695 Oct, [facility] [place] [facility] [address] [id number] [place] [address]- 8653 Sep, [facility] [place] [facility] [address] [id number] [place] [address]- 1378 Sep, [facility] [place] [facility] [address] [id number] [place] [address]- 1354 Sep, [facility] [place] [facility] [address] [id number] [place] [address]- 0033 Sep, [facility] [place] [facility] [address] [id number] [place] [address]- 9933 Sep, [facility] [place] [facility] [address] [id number] [place] [address]- 9432 Sep, [facility] [place] [facility] [address] [id number] [place] [address]- 1738 Sep, [facility] [place] [facility] [address] [id number] [place] [address]- 1774 Sep, [facility] [place] [facility] [address] [id number] [place] [address]- 4490 Sep, [facility] [place] [facility] [address] [id number] [place] [address]- 5340 Sep, [facility] [place] [facility] [address] [id number] [place] [address]- 1035 August, [facility] [place] [facility] [address] [id number] [place] [address]- 3822 August, [facility] [place] [facility] [address] [id number] [place] [address]- 7557 August, [facility] [place] [facility] [address] [id number] [place] [address]- 1175 August, [facility] [place] [facility] [address] [id number] [place] [address]- 6183 August, [facility] [place] [facility] [address] [id number] [place] [address]- 0864 August, [facility] [place] [facility] [address] [id number] [place] [address]- 4308 August, [facility] [place] [facility] [address] [id number] [place] [address]- 4996 August, [facility] [place] [facility] [address] [id number] [place] [address]- 7394 August, [facility] [place] [facility] [address] [id number] [place] [address]- 9066 August, [facility] [place] [facility] [address] [id number] [place] [address]- 8252 August, [facility] [place] [facility] [address] [id number] [place] [address]- 8806 August, [facility] [place] [facility] [address] [id number] [place] [address]- 0898 Jul, [facility] [place] [facility] [address] [id number] [place] [address]- 1269 Jul, [facility] [place] [facility] [address] [id number] [place] [address]- 0308 Jul, [facility] [place] [facility] [address] [id number] [place] [address]- 6844 Jul, [facility] [place] [facility] [address] [id number] [place] [address]- 1180 Jul, [facility] [place] [facility] [address] [id number] [place] [address]- 2969 Jul, [facility] [place] [facility] [address] [id number] [place] [address]- 2125 Jun, [facility] [place] [facility] [address] [id number] [place] [address]- 8128 Jun, [facility] [place] [facility] [address] [id number] [place] [address]- 4745 May, [facility] [place] [facility] [address] [id number] [place] [address]- 4265 May, [facility] [place] [facility] [address] [id number] [place] [address]- 0720 Apr, [facility] [place] [facility] [address] [id number] [place] [address]- 7573 Apr, [facility] [place] [facility] [address] [id number] [place] [address]- 4336 Apr, [facility] [place] [facility] [address] [id number] [place] [address]- 8853 Apr, [facility] [address] [id number] [place] [address]- 5192 Apr, [facility] [place] [facility] [address] [id number] [place] [address]- 5836 Apr, [facility] [place] [facility] [address] [id number] [place] [address]- 2070 Apr, [facility] [place] [facility] [address] [id number] [place] [address]- 3125 Apr, [facility] [place] [facility] [address] [id number] [place] [address]- 6084 Apr, [facility] [place] [facility] [address] [id number] [place] [address]- 6186 Apr, [facility] [place] [facility] [address] [id number] [place] [address]- 5603 Apr, [facility] [place] [facility] [address] [id number] [place] [address]- 2375 Apr, [facility] [place] [facility] [address] [id number] [place] [address]- 5218 Apr, [facility] [place] [facility] [address] [id number] [place] [address]- 0803 Mar, [facility] [place] [facility] [address] [id number] [place] [address]- 8978 Mar, [facility] [place] [facility] [address] [id number] [place] [address]- 2619 Mar, [facility] [place] [facility] [address] [id number] [place] [address]- 8705 Mar, [facility] [place] [facility] [address] [id number] [place] [address]- 6696 Feb, [facility] [place] [facility] [address] [id number] [place] [address]- 4147 Feb, [facility] [place] [facility] [address] [id number] [place] [address]- 0096 08 Feb, 2013 [facility] [place] [facility] [address] [id number] [place] [address]- 2957 08 Feb, 2013 [facility] [place] [facility] [address] [id number] [place] [address]- 9184 14 Jan, 2013 [facility] [place] [facility] [address] [id number] [place] [address]- 7601 14 Jan, 2013 [facility] [place] [facility] [address] [id number] [place] [address]- 4019 Jan, [facility] [place] [facility] [address] [id number] [place] [address]- 5759 Jan, [facility] [place] [facility] [address] [id number] [place] [address]- 6604 Jan, [facility] [place] [facility] [address] [id number] [place] [address]- 0144 Jan, [facility] [place] [facility] [address] [id number] [place] [address]- 0474 Jan, [facility] [place] [facility] [address] [facility] [id number] [place] [address]- 0007 Jan, [facility] [place] [facility] [address] [facility] [id number] [place] [address]- 2750 Jan, [facility] [place] [facility] [address] [id number] [place] [address]- 9551 26 Dec, 2012 [facility] [place] [facility] [address] [id number] [place] [address]- 3336 16 Dec, 2012 [facility] [place] [facility] [address] [id number] [place] [address]- 9767 16 Dec, 2012 [facility] [place] [facility] [address] [id number] [place] [address]- 1135 13 Dec, 2012 [facility] [place] [facility] [address] [facility] [id number] [place] [address]- 7649 17 Nov, 2012 [facility] [place] [facility] [address] [id number] [place] [address]- 5836 Nov, [facility] [address] [id number] [place] [address]- 4078 Nov, [facility] [place] [facility] [address] [id number] [place] [address] 2546 Nov, [facility] [address] [id number] [place] [address]- 2359 Oct, [facility] [address] [id number] [place] [address]- 4686 Sep, [facility] [address] [id number] [place] [address]- 4744 August, [facility] [address] [id number] [place] [address]- 6555 August, [facility] [address] [id number] [place] [address]- 3630 August, [facility] [address] [id number] [place] [address]- 8768 August, [facility] [address] [id number] [place] [address]- 5910 August, [facility] [address] [id number] [place] [address]- 3111 August, [facility] [address] [id number] [place] [address]- 8414 August, [facility] [address] [id number] [place] [address]- 4173 August, [facility] [place] [facility] [address] [id number] [place] [address]- 9006 August, [facility] [place] [facility] [address] [id number] [place] [address]- 2546 August, [facility] [address] [id number] [place] [address]- 9635 August, [facility] [address] [id number] [place] [address]- 3386 August, [facility] [address] [id number] [place] [address]- 6741 Jul, [facility] [address] [id number] [place] [address]- 3379 Jul, [facility] [place] [facility] [address] [id number] [place] [address]- 4756 Jul, [facility] [address] [id number] [place] [address]- 5465 Jul, [facility] [address] [id number] [place] [address]- 0191 Jul, [facility] [address] [id number] [place] [address]- 5517 Jul, [facility] [place] [facility] [address] [id number] [place] [address]- 8131 Jul, [facility] [place] [facility] [address] [id number] [place] [address]- 0952 Jul, [facility] [place] [facility] [address] [id number] [place] [address]- 3404 Jul, [facility] [place] [facility] [address] [id number] [place] [address]- 2668 Jul, [facility] [place] [facility] [address] [id number] [place] [address]- 5779 Jul, [facility] [place] [facility] [address] [id number] [place] [address]- 0186 Jun, [facility] [place] [facility] [address] [id number] [place] [address]- 2312 Jun, [facility] [place] [facility] [address] [id number] [place] [address]- 4650 Jun, [facility] [place] [facility] [address] [id number] [place] [address]- 1896 Jun, [facility] [address] [id number] [place] [address]- 8926 28 May, 2012 [facility] [place] [facility] [address] [id number] [place] [address] 2546 14 May, 2012 [facility] [place] [facility] [address] [id number] [place] [address]- 2546 05 May, 2012 [facility] [place] [facility] [address] [id number] [place] [address]- 2546 May, [facility] [address] [id number] [place] [address]- 3276 May, [facility] [place] [facility] [address] [id number] [place] [address]- 2546 May, [facility] [address] [id number] [place] [address]- 6916 Apr, [facility] [address] [id number] [place] [address]- 1814 Apr, [facility] [place] [facility] [address] [id number] [place] [address]- 6669 30 Apr, 2012 [facility] [address] [id number] [place] [address]- 1575 Apr, [facility] [place] [facility] [address] [id number] [place] [address] 2546 15 Mar, 2012 [facility] [place] [facility] [address] [id number] [place] [address] 2546 14 Mar, 2012 [facility] [place] [facility] [address] [id number] [place] [address] 2546 14 Mar, 2012 [facility] [place] [facility] [address] [id number] [place] [address] 2546 14 Mar, 2012 [facility] [place] [facility] [address] [id number] [place] [address]- 2546 Mar, [facility] [place] [facility] [address] [id number] [place] [address]- 5062 Mar, [facility] [place] [facility] [address] [id number] [place] [address]- 0481 Mar, [facility] [place] [facility] [address] [id number] [place] [address]- 7896 Feb, [facility] [place] [facility] [address] [id number] [place] [address]- 4447 Feb, [facility] [place] [facility] [address] [id number] [place] [address]- 1833 Feb, [facility] [place] [facility] [address] [id number] [place] [address]- 2327 Feb, [facility] [place] [facility] [address] [id number] [place] [address]- 9310 Jan, [facility] [place] [facility] [address] [id number] [place] [address]- 5402 Jan, [facility] [place] [facility] [address] [id number] [place] [address]- 3821 Jan, [facility] [place] [facility] [address] [id number] [place] [address]- 0859 Jan, [facility] [place] [facility] [address] [id number] [place] [address]- 6867 Jan, [facility] [place] [facility] [address] [id number] [place] [address]- 1829 Jan, [facility] [place] [facility] [address] [id number] [place] [address]- 5479 Dec, [facility] [place] [facility] [address] [id number] [place] [address]- 9607 Dec, [facility] [place] [facility] [address] [id number] [place] [address]- 2423 Nov, [facility] [place] [facility] [address] [id number] [place] [address]- 2072 Sep, [facility] [address] [id number] [place] [address]- 3921 August, [facility] [place] [facility] [address] [id number] [place] [address]- 8873 August, [facility] [place] [facility] [address] [id number] [place] [address]- 6518 August, [facility] [place] [facility] [address] [id number] [place] [address]- 2945 August, [facility] [place] [facility] [address] [id number] [place] [address]- 5238 August, [facility] [place] [facility] [address] [id number] [place] [address]- 6789 Jun, [facility] [place] [facility] [address] [id number] [place] [address]- 7536 Jun, [facility] [place] [facility] [address] [id number] [place] [address]- 2635 Apr, [facility] [place] [facility] [address] [id number] [place] [address]- 9367 Apr, [facility] [place] [facility] [address] [id number] [place] [address]- 9708 Mar, [facility] [place] [facility] [address] [id number] [place] [address]- 7413 Feb, [facility] [place] [facility] [address] [id number] [place] [address]- 5860 Feb, [facility] [place] [facility] [address] [id number] [place] [address]- 9760 14 Feb, 2011 [facility] [place] [facility] [address] [id number] [place] [address]- 8603 17 Jan, 2011 [facility] [place] [facility] [address] [id number] [place] [address]- 6973 15 Jan, 2011 [facility] [place] [facility] [id number] [place] [address]- 1596 15 Jan, 2011 [facility] [id number] [place] [address]- 9537 14 Jan, 2011 [facility] [id number] [place] [address]- 9936 May, [facility] [id number] [place] [address] 00917- 0265 Mar, [facility] [id number] [place] [address] 02175- 7907 Oct, [facility] [id number] [place] [address] 36110- 3271 Sep, [facility] [id number] [place] [address] 53756- 4983 Mar, [facility] [id number] [place] [address] 916[address]- 8051 Jan, [facility] [id number] [phone] Jan, [facility] [id number] [phone] May, IMMUNIZATIONS No Known Immunizations SOCIAL HISTORY Never Assessed REASON FOR VISIT Controlled Med Refill 06/28 PLAN OF CARE VITAL SIGNS MEDICATIONS Medication Instructions Dosage Frequency Start Date End Date Duration Status Hydrocodone-Acetaminophen 5-325 MG Orally 3 -4 times a day prn. must last 4 weeks 1 tablet as needed Jun, Active RESULTS No Results PROCEDURES No Known procedures INSTRUCTIONS MEDICATIONS ADMINISTERED No Known Medications MEDICAL (GENERAL) HISTORY Type Description Date Medical History hypertension Medical History Colposcopy with loop electrode excision of the cervix was performed 06/2012, mild squamous atypia (no definite dyplasia). Performed at [facility] Dr. Joy. Medical History Acute suppurative [...]
--- OUTSIDE RECORDS SUMMARY | 2018-06-10 05:06 | XMS REPORT ---
Author Author SIMA HODGES [facility] Address [address] [place] [address] Care Team Providers Care Chestnut Tanner Name Role Phone SIMA HODGES Unavailable PROBLEMS Type Condition ICD9-CM Code XDJ27-DU Code Onset Dates Condition Status SNOMED Code Problem Anxiety F41.9 Active 23335967 Problem Abnormal glucose R73.09 Active 339954396 Problem Chronic pain due to trauma G89.21 Active 842374836 Problem Hypokalemia E87.6 Active 97961415 Problem Neck pain M54.2 Active 42583357 Problem Neuroforaminal stenosis of spine M99.89 Active 339516481508 Problem Mixed hyperlipidemia E78.2 Active 99231101 Problem Essential hypertension I10 Active 04358963 ALLERGIES Substance Reaction Event Type Date Status Fluarix Quadrivalent rash Drug Allergy Jun, Active Zostavax rash Drug Allergy Jun, Active Macrobid rash Drug Allergy Jun, Active Cipro hives Drug Allergy Jun, Active Bactrim hives Drug Allergy Jun, Active Baclofen Unknown Drug Allergy Jun, Active Amitriptyline HCl dizziness Drug Allergy Jun, Active Peanut Unknown Non Drug Allergy Jun, Active ENCOUNTERS Encounter Location Date Diagnosis [facility] [id number] [address] Oct, [facility] [id number] [address]26 Oct, [facility] [id number] [address] 9[address] Oct, [facility] [id number] [address] 6[address] Oct, Neuroforaminal stenosis of spine M99.89 [facility] [id number] [place] [address] 40504- 5072 10 Oct, 2017 Visit for TB skin test Z11.1 [place] [address] 49930- 2509 05 Oct, 2017 Cystitis without hematuria N30.90 [place] [address] 72270- 7376 28 Sep, 2017 Screening breast examination Z12.39 [place] [address] 16917- 6574 26 Sep, 2017 Dysuria R30.0 and Cystitis without hematuria N30.90 [place] [address] 98955- 8995 14 Sep, 2017 Essential hypertension I10 and Neuroforaminal stenosis of spine M99.[address] 41831- 9279 Sep, Abnormal glucose R73.09 [place] [address] 04550- 1192 August, Lateral epicondylitis, right elbow M77.11 [place] [address] 46595- 5649 August, Screen for STD (sexually transmitted disease) Z11.3 [place] [address] 53985- 6732 August, Neuroforaminal stenosis of spine M99.89 ; Mixed hyperlipidemia E78.2 ; Elevated fasting glucose R73.01 ; Screening mammogram, encounter for Z12.31 and Encounter for well woman exam without gynecological exam Z00.[address] 49183- 9852 August, Neuroforaminal stenosis of spine M99.89 [place] [address] 66188- 8787 August, Essential hypertension I10 ; Hypokalemia E87.6 and Mixed hyperlipidemia E78.2 [facility] [id number] [place] [address] 12227- 0931 Jul, [facility] [id number] [place] [address] 52812 2546 Jul, Neuroforaminal stenosis of spine M99.89 [facility] [id number] [place] [address] 70042- 9966 Jul, Lateral epicondylitis, right elbow M77.11 [facility] [id number] [place] [address] 84933 2546 Jul, [facility] [address] 94905- 7877 Jun, High ankle sprain of right lower extremity, initial encounter S93.431A [place] [address] 56155- 6200 Jun, Essential hypertension I10 [facility] [id number] [place] [address] 65425- 1157 Jun, [facility] [id number] [place] [address] 96837- 0161 Jun, [facility] [id number] [place] [address] 14707- 8042 Jun, Neuroforaminal stenosis of spine M99.89 [facility] [id number] [place] [address] 90920- 5668 Jun, Pain of right upper extremity M79.601 and Essential hypertension I10 [facility] [id number] [place] [address] 13896- 4646 Jun, [place] [id number] [place] [address] 02492- 7060 Jun, Dysuria R30.0 ; Acute cystitis with hematuria N30.01 and Screen for STD (sexually transmitted disease) Z11.3 [place] [address] [place] [address]- 1591 May, Chronic pain due to trauma G89.21 [place] [address] 04828- 6120 May, Essential hypertension I10 [place] [address] 60158- 0327 May, Neuroforaminal stenosis of spine M99.89 [place] [address] 98367- 9866 Apr, Allergic reaction, initial encounter T78.40XA [place] [address] 34263- 3570 Apr, Low back pain, unspecified back pain laterality, unspecified chronicity, with sciatica presence unspecified M54.5 ; Acute cystitis with hematuria N30.01 ; Neuroforaminal stenosis of spine M99.89 ; Bilateral acute serous otitis media, recurrence not specified H65.03 ; Mixed hyperlipidemia E78.2 ; Essential hypertension I10 ; Immunization counseling Z71.89 and Encounter for immunization Z23 [place] [address] 38797- 0391 Apr, Neck pain M54.2 [place] [address] 67591- 5100 Mar, Neuroforaminal stenosis of spine M99.89 [place] [address] 19751- 9343 Mar, Pharyngitis due to other organism J02.8 [place] [address] 64541- 7141 Feb, Neuroforaminal stenosis of spine M99.89 [place] [address] 45635- 0525 08 Feb, 2017 UTI (urinary tract infection) N39.0 [place] [address] 36513- 2740 Feb, Recent urinary tract infection Z87.440 ; Neuroforaminal stenosis of spine M99.89 ; Neck pain M54.2 ; Chronic pain due to trauma G89.21 and Recurrent UTI N39.0 [facility] [id number] [place] [address] 86443- 7203 Feb, [place] [id number] [place] [address] 54225- 6050 Jan, Neuroforaminal stenosis of spine M99.89 [place] [id number] [place] [address] 77361- 3133 Dec, Neuroforaminal stenosis of spine M99.89 [place] [id number] [place] [address] 72156- 7310 18 Dec, 2016 Acute seasonal allergic rhinitis due to pollen J30.1 [place] [id number] [place] [address] 73192- 7927 08 Dec, 2016 [place] [id number] [place] [address] 50955- 1352 08 Dec, 2016 Acute seasonal allergic rhinitis, unspecified trigger J30.2 ; Allergic conjunctivitis of both eyes H10.13 and Dysfunction of both eustachian tubes H69.83 [place] [id number] [place] [address] 98186- 1581 Dec, [place] [id number] [place] [address] 53929- 5038 Dec, Nevus D22.9 [place] [id number] [place] [address] 86466- 3173 Nov, Chronic pain due to trauma G89.21 and Neuroforaminal stenosis of spine M99.89 [facility] [id number] [place] [address] 67514- 7482 Nov, Neuroforaminal stenosis of spine M99.89 ; Essential hypertension I10 ; Mixed hyperlipidemia E78.2 ; Hypokalemia E87.6 ; Neck pain M54.2 and Nevus D22.9 [facility] [address] [id number] [address]- 0225 Oct, Neuroforaminal stenosis of spine M99.89 [facility] [id number] [place] [address] 79474- 7670 Sep, Neuroforaminal stenosis of spine M99.89 [facility] [address] [facility] [id number] [place] [address] 05019- 0332 Sep, [facility] [address] [facility] [id number] [place] [address] 19229- 6845 August, [facility] [id number] [place] [address] 84322- 8208 August, Neck pain M54.2 and Neuroforaminal stenosis of spine M99.89 [facility] [id number] [place] [address] 20913- 2982 August, Routine gynecological examination Z01.419 and Screening breast examination Z12.39 [facility] [id number] [place] [address] 76128- 3700 Jul, [facility] [id number] [place] [address] 88986- 1006 Jul, [facility] [id number] [place] [address] 13037- 7360 Jul, Neuroforaminal stenosis of spine M99.89 [facility] [id number] [place] [address] 40573- 2707 Jul, [facility] [address] [facility] [id number] [place] [address] 03502- 6183 Jul, 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 [facility] [address] [facility] [id number] [place] [address] 59844- 3252 Jul, [facility] [id number] [place] [address] 05638- 3150 Jul, [place] [id number] [place] [address] 46372- 6561 Jun, Neuroforaminal stenosis of spine M99.89 [place] [id number] [place] [address] 17661- 2143 Jun, Uterine leiomyoma, unspecified location D25.9 and Allergic reaction caused by a drug, initial encounter T78.40XA [place] [id number] [place] [address] 91638- 0898 Jun, [place] [id number] [place] [address] 13552- 9166 May, UTI symptoms R39.9 and Pain of right sacroiliac joint M53.3 [place] [id number] [place] [address] 94024- 3898 May, Neuroforaminal stenosis of spine M99.89 [place] [id number] [place] [address] 27259- 6113 May, [place] [id number] [place] [address] 98659- 2641 May, Acute mucoid otitis media of left ear H65.112 and Acute non- recurrent maxillary sinusitis J01.00 [place] [id number] [place] [address] 01125- 6670 May, Acute bacterial conjunctivitis of both eyes H10.33 ; Left arm pain M79.602 and Hypokalemia E87.6 [place] [id number] [place] [address] 49618- 8082 Apr, [place] [id number] [place] [address] 96287- 8526 Apr, Neuroforaminal stenosis of spine M99.89 ; Neck pain M54.2 ; Chronic pain due to trauma G89.21 ; Mixed hyperlipidemia E78.2 ; Essential hypertension I10 and Hypokalemia E87.6 [facility] [address] [address]- 4617 Mar, Oral candidiasis B37.0 ; Neuroforaminal stenosis of spine M99.89 ; Neck pain M54.2 and Chronic pain due to trauma G89.21 [facility] [address] [address]- 1897 Feb, [facility] [id number] [place] [address] 06859- 7701 Feb, [facility] [id number] [place] [address] 55472- 8874 Feb, UTI (urinary tract infection) N39.0 [facility] [id number] [place] [address] 25510- 3872 Feb, Dysuria R30.0 [facility] [id number] [place] [address] 20829- 0614 Feb, Dysuria R30.0 [facility] [id number] [place] [address] 32794- 7739 Feb, Neuroforaminal stenosis of spine M99.89 ; Neck pain M54.2 ; Essential hypertension I10 ; Chronic pain due to trauma G89.21 ; Dysuria R30.0 ; Abnormal MRI, shoulder R93.8 and Acute cystitis without hematuria N30.00 [facility] [address] [address]- 4630 Jan, [facility] [id number] [place] [address] 03538- 1944 Jan, [facility] [id number] [place] [address] 46159- 6586 Jan, [facility] [address] [address]- 7205 Jan, Abnormal MRI R93.8 [facility] [id number] [place] [address] 28312- 2230 29 Dec, 2015 [facility] [address] [facility] [id number] [address] -2171 15 Dec, 2015 Acute pain of left shoulder M25.512 [facility] [address] [facility] [id number] [address]- 8916 09 Dec, 2015 [facility] [id number] [place] [address] 17117- 9175 08 Dec, 2015 [facility] [id number] [place] [address] 12331- 7641 07 Dec, 2015 Acute pain of left shoulder M25.512 [facility] [id number] [place] [address] 92163- 5041 23 Nov, 2015 [facility] [id number] [place] [address] 49450- 4447 16 Nov, 2015 Neuroforaminal stenosis of spine M99.89 ; Neck pain M54.2 ; Abnormal mammogram R92.8 ; Essential hypertension I10 and Chronic pain due to trauma G89.21 [facility] [address] [address]- 3421 Nov, [facility] [id number] [place] [address] 08555- 6181 Oct, Acute stress disorder F43.0 [facility] [id number] [address]- 9643 Oct, [facility] [address] [address]- 0279 Oct, [facility] [id number] [address]- 2221 Oct, [facility] [address] [address]- 3336 Sep, [facility] [address] [address]- 7147 August, [facility] [address] [address]- 2653 Jul, Neuroforaminal stenosis of spine M99.89 ; Neck pain M54.2 ; Abnormal mammogram R92.8 and Essential hypertension I10 [facility] [address] [address] 2546 Jul, [facility] [id number] [place] [address] 76590 2546 Jul, [facility] [id number] [place] [address] 59803 2546 Jul, Abnormal mammogram R92.8 [facility] [id number] [place] [address] 80252 2546 Jul, [facility] [id number] [place] [address] 69200- 7298 Jul, UTI (urinary tract infection) N39.0 [facility] [id number] [place] [address] 06984 2546 Jul, Dysuria R30.0 [facility] [id number] [place] [address] 12218 2546 Jun, [facility] [address] [address] 2546 Jun, [facility] [id number] [place] [address] 35123 2546 Jun, Hypokalemia E87.6 and Hematuria R31.9 [facility] [address] [address] 2546 Jun, Hypokalemia E87.6 [facility] [id number] [place] [address] 84251 2546 Jun, [facility] [address] [address] 2546 Jun, Hypokalemia E87.6 [place] [id number] [place] [address] 26469- 1291 Jun, Hypokalemia E87.6 [place] [id number] [place] [address] 92043- 5975 15 Jun, 2015 Neuroforaminal stenosis of spine M99.89 ; Hypokalemia E87.6 ; Neck pain M54.2 ; Essential hypertension I10 ; Mixed hyperlipidemia E78.2 and Screening breast examination Z12.39 [place] [id number] [place] [address] 71107- 4091 08 Jun, 2015 Dysuria R30.0 ; UTI (urinary tract infection) N39.0 and Hematuria R31.9 [place] [id number] [place] [address] 59345- 2193 May, [address] 05727- 6085 18 May, 2015 High risk sexual behavior Z72.51 ; Hypokalemia E87.6 ; Neuroforaminal stenosis of spine M99.89 ; Neck pain M54.2 ; Essential hypertension I10 ; Mixed hyperlipidemia E78.2 ; STD exposure Z20.2 and Concern about STD in female without diagnosis Z71.1 [place] [id number] [place] [address] 62433- 7026 16 May, 2015 Neuroforaminal stenosis of spine M99.89 ; Neck pain M54.2 ; Hypokalemia E87.6 ; Essential hypertension I10 and Mixed hyperlipidemia E78.2 [place] [id number] [place] [address] 21644- 5073 May, [facility] [id number] [place] [address] 84749 -5336 08 May, 2015 High risk sexual behavior Z72.51 ; STD exposure Z20.2 and Concern about STD in female without diagnosis Z71.1 [place] [id number] [place] [address] 51723- 6938 May, [place] [id number] [place] [address] 89233- 2556 Apr, Neuroforaminal stenosis of spine M99.89 ; Mixed hyperlipidemia E78.2 ; Essential hypertension I10 and Hypokalemia E87.6 [place] [id number] [place] [address] 05337- 8571 Mar, [facility] [id number] [place] [address] 19511- 2936 Mar, Hypokalemia E87.6 [place] [id number] [place] [address] 72027- 0733 Mar, Neuroforaminal stenosis of spine M99.89 ; Mixed hyperlipidemia E78.2 ; Neck pain M54.2 ; Essential hypertension I10 ; Abnormal fasting glucose R73.09 ; Hypokalemia E87.6 and Constipation K59.00 [place] [id number] [place] [address] 62030- 7695 Feb, Neuroforaminal stenosis of spine M99.89 ; Mixed hyperlipidemia E78.2 ; Neck pain M54.2 ; Essential hypertension I10 ; Abnormal fasting glucose R73.09 ; Hypokalemia E87.6 and Constipation K59.00 [place] [id number] [place] [address] 44818- 0992 Feb, Elevated fasting blood sugar R73.01 [place] [id number] [place] [address] 98571- 1539 Feb, Elevated fasting blood sugar R73.01 [place] [id number] [place] [address] 40299- 9981 Feb, Hair loss L65.9 [place] [id number] [place] [address] 01035- 5720 Feb, Sinusitis J32.9 ; Essential hypertension I10 and Hair loss L65.9 [place] [id number] [place] [address] 35430- 1117 Jan, [facility] [id number] [place] [address] 57064- 4948 Jan, Essential hypertension I10 ; Neuroforaminal stenosis of spine M99.89 ; Neck pain M54.2 ; Mixed hyperlipidemia E78.2 and Anxiety F41.9 [facility] [id number] [place] [address] 85796- 2888 Jan, [place] [address] 98757- 9064 Jan, Mixed hyperlipidemia E78.2 ; Essential (primary) hypertension I10 ; Strain of muscle, fascia and tendon at neck level, subsequent encounter S16.1XXD and Tension-type headache, unspecified, not intractable G44.209 [place] [id number] [place] [address] 05191- 6740 Dec, Lumbar back pain 724.2 and Neuroforaminal stenosis of spine 724.00 [place] [id number] [place] [address] 37720- 9588 Nov, [place] [id number] [place] [address] 46438- 6230 Nov, Lumbar back pain 724.2 and Neuroforaminal stenosis of spine 724.00 [place] [id number] [place] [address] 99143- 1546 Nov, Edema 782.3 ; Lumbar back pain 724.2 ; Essential hypertension, benign 401.1 ; Hyperlipemia 272.4 ; Neuroforaminal stenosis of spine 724.00 and Post-concussion headache 339.20 [place] [id number] [place] [address] 47436- 4286 Nov, [place] [id number] [place] [address] 87709- 1757 Nov, [place] [id number] [place] [address] 90348- 3237 Oct, Essential hypertension, benign 401.1 [facility] [address] [address]- 1657 Oct, Edema 782.3 ; Lumbar back pain 724.2 ; Essential hypertension, benign 401.1 ; Hyperlipemia 272.4 ; Neuroforaminal stenosis of spine 724.00 and Post-concussion headache 339.20 [facility] [id number] [place] [address] 90086- 9549 Oct, [facility] [id number] [place] [address] 93675- 0312 Oct, Edema 782.3 [facility] [id number] [place] [address] 28698- 0193 Oct, Lumbar back pain 724.2 [place] [id number] [place] [address] 89997- 3334 Oct, Cervicalgia 723.1 ; Lumbar back pain 724.2 and High risk medication use V58.69 [facility] [id number] [place] [address] 21894- 6570 Sep, [facility] [id number] [place] [address] 21888- 1178 Sep, Lumbar strain 847.2 [place] [id number] [place] [address] 88535- 5577 August, Edema 782.3 and Eustachian tube dysfunction 381.81 [facility] [address] [address] August, [facility] [id number] [place] [address] 05174- 2057 August, Eustachian tube dysfunction 381.81 [facility] [id number] [place] [address]1539- 4274 Jul, Otalgia 388.70 and Otitis media 382.9 [place] [id number] [place] [address] 16376- 8440 28 Jul, 2014 [facility] [place] [facility] [address] [id number] [place] [address] 28 Jul, 2014 [facility] [place] [facility] [address] [id number] [place] [address] 28 Jul, 2014 [facility] [place] [facility] [address] [facility] [id number] [place] [address] 14 Jul, 2014 [facility] [place] [facility] [address] [facility] [id number] [place] [address]- 80[address] 13 Jul, 2014 [facility] [place] [facility] [address] [facility] [id number] [place] [address]- 43[address] 27 Jun, 2014 [facility] [place] [facility] [address] [facility] [id number] [place] [address]- [address]160 27 Jun, 2014 [facility] [place] [facility] [address] [id number] [address]- [address]83 16 Jun, 2014 [facility] [place] [facility] [address] [facility] [id number] [place] [address]- 6872 26 May, 2014 [facility] [place] [facility] [address] [id number] [address] 26 May, 2014 [facility] [place] [facility] [address] [id number] [place] [address] 23 May, 2014 [facility] [place] [facility] [address] [id number] [place] [address]- 1342 17 May, 2014 [facility] [place] [facility] [address] [facility] [id number] [place] [address] 17 May, 2014 [facility] [place] [facility] [address] [facility] [id number] [place] [address] 11 May, 2014 [facility] [place] [facility] [address] [facility] [id number] [place] [address]- 7582 09 May, 2014 [facility] [place] [facility] [address] [id number] [place] [address] May, [facility] [place] [facility] [address] [id number] [place] [address] 3129 May, [facility] [place] [facility] [address] [id number] [place] [address] 2916 May, [facility] [place] [facility] [address] [id number] [place] [address]- 6186 Apr, [facility] [place] [facility] [address] [id number] [place] [address]- 7660 Apr, [facility] [place] [facility] [address] [id number] [place] [address]- 0789 Apr, [facility] [place] [facility] [address] [id number] [place] [address]- 6624 Apr, [facility] [place] [facility] [address] [id number] [place] [address]- 6971 Apr, [facility] [place] [facility] [address] [id number] [place] [address]- 0084 Apr, [facility] [place] [facility] [address] [id number] [place] [address]- 1451 Apr, [facility] [place] [facility] [address] [id number] [place] [address]- 2746 Apr, [facility] [place] [facility] [address] [id number] [place] [address]- 2661 Apr, [facility] [place] [facility] [address] [id number] [place] [address]- 7161 Apr, [facility] [place] [facility] [address] [id number] [place] [address]- 0250 Apr, [facility] [place] [facility] [address] [id number] [place] [address]- 8509 Apr, [facility] [place] [facility] [address] [id number] [place] [address]- 6569 Apr, [facility] [place] [facility] [address] [id number] [place] [address]- 9865 Apr, [facility] [place] [facility] [address] [id number] [place] [address] Apr, [facility] [place] [facility] [address] [id number] [place] [address] Mar, [facility] [place] [facility] [address] [id number] [place] [address]- 1883 Mar, [facility] [place] [facility] [address] [id number] [place] [address]- 4170 Mar, [facility] [place] [facility] [address] [id number] [place] [address] Mar, [facility] [place] [facility] [address] [id number] [place] [address]- 5015 Feb, [facility] [place] [facility] [address] [id number] [place] [address]- 1895 Feb, [facility] [place] [facility] [address] [id number] [place] [address]- 3640 Feb, [facility] [place] [facility] [address] [id number] [place] [address]- 5920 Feb, [facility] [place] [facility] [address] [facility] [id number] [place] [address]- 6761 Jan, [facility] [place] [facility] [address] [id number] [place] [address]- 3771 Jan, [facility] [place] [facility] [address] [id number] [place] [address] 1855 Jan, [facility] [place] [facility] [address] [id number] [place] [address] Jan, [facility] [place] [facility] [address] [id number] [place] [address]- 4199 Jan, [facility] [place] [facility] [address] [id number] [place] [address] Jan, [facility] [place] [facility] [address] [id number] [place] [address]- 1689 Jan, [facility] [place] [facility] [address] [id number] [place] [address]- 0662 Jan, [facility] [place] [facility] [address] [id number] [place] [address]- 7419 Dec, [facility] [place] [facility] [address] [id number] [place] [address]- 9064 Dec, [facility] [place] [facility] [address] [id number] [place] [address]- 5055 Dec, [facility] [place] [facility] [address] [id number] [place] [address]- 7563 Dec, [facility] [place] [facility] [address] [id number] [place] [address]- 4138 Oct, [facility] [place] [facility] [address] [id number] [place] [address]- 7077 Oct, [facility] [place] [facility] [address] [id number] [place] [address]- 3135 Oct, [facility] [place] [facility] [address] [id number] [place] [address]- 1535 Oct, [facility] [place] [facility] [address] [id number] [place] [address]- 7098 Oct, [facility] [place] [facility] [address] [id number] [place] [address]- 4126 Oct, [facility] [place] [facility] [address] [id number] [place] [address]- 6532 Oct, [facility] [place] [facility] [address] [id number] [place] [address]- 1310 Oct, [facility] [place] [facility] [address] [id number] [place] [address]- 4796 Sep, [facility] [place] [facility] [address] [id number] [place] [address]- 8542 Sep, [facility] [place] [facility] [address] [id number] [place] [address]- 8278 Sep, [facility] [place] [facility] [address] [id number] [place] [address]- 7489 Sep, [facility] [place] [facility] [address] [id number] [place] [address]- 5527 Sep, [facility] [place] [facility] [address] [id number] [place] [address]- 0519 Sep, [facility] [place] [facility] [address] [id number] [place] [address]- 8123 Sep, [facility] [place] [facility] [address] [id number] [place] [address]- 4818 Sep, [facility] [place] [facility] [address] [id number] [place] [address]- 0879 Sep, [facility] [place] [facility] [address] [id number] [place] [address]- 7631 Sep, [facility] [place] [facility] [address] [id number] [place] [address]- 8342 August, [facility] [place] [facility] [address] [id number] [place] [address]- 6653 August, [facility] [place] [facility] [address] [id number] [place] [address]- 4721 August, [facility] [place] [facility] [address] [id number] [place] [address]- 4007 August, [facility] [place] [facility] [address] [id number] [place] [address]- 7338 August, [facility] [place] [facility] [address] [id number] [place] [address]- 6398 August, [facility] [place] [facility] [address] [id number] [place] [address]- 0334 August, [facility] [place] [facility] [address] [id number] [place] [address]- 2295 August, [facility] [place] [facility] [address] [id number] [place] [address]- 1531 August, [facility] [place] [facility] [address] [id number] [place] [address]- 6809 August, [facility] [place] [facility] [address] [id number] [place] [address]- 8037 August, [facility] [place] [facility] [address] [id number] [place] [address]- 2390 August, [facility] [place] [facility] [address] [id number] [place] [address]- 0382 Jul, [facility] [place] [facility] [address] [id number] [place] [address]- 7235 Jul, [facility] [place] [facility] [address] [id number] [place] [address]- 5827 Jul, [facility] [place] [facility] [address] [id number] [place] [address]- 7255 Jul, [facility] [place] [facility] [address] [id number] [place] [address]- 4494 Jul, [facility] [place] [facility] [address] [id number] [place] [address]- 9068 Jul, [facility] [place] [facility] [address] [id number] [place] [address]- 5004 Jun, [facility] [place] [facility] [address] [id number] [place] [address]- 6550 Jun, [facility] [place] [facility] [address] [id number] [place] [address]- 0842 May, [facility] [place] [facility] [address] [id number] [place] [address]- 1204 May, [facility] [place] [facility] [address] [id number] [place] [address]- 6605 Apr, [facility] [address] [id number] [place] [address]- 5327 Apr, [facility] [place] [facility] [address] [id number] [place] [address]- 1693 Apr, [facility] [place] [facility] [address] [id number] [place] [address]- 9603 Apr, [facility] [place] [facility] [address] [id number] [place] [address]- 8197 Apr, [facility] [place] [facility] [address] [id number] [place] [address]- 8319 Apr, [facility] [place] [facility] [address] [id number] [place] [address]- 0307 Apr, [facility] [place] [facility] [address] [id number] [place] [address]- 5272 Apr, [facility] [place] [facility] [address] [id number] [place] [address]- 3834 Apr, [facility] [place] [facility] [address] [id number] [place] [address]- 2177 Apr, [facility] [place] [facility] [address] [id number] [place] [address]- 0419 Apr, [facility] [place] [facility] [address] [id number] [place] [address]- 3067 Apr, [facility] [place] [facility] [address] [id number] [place] [address]- 8872 Apr, [facility] [place] [facility] [address] [id number] [place] [address]- 0719 Mar, [facility] [place] [facility] [address] [id number] [place] [address]- 0035 Mar, [facility] [place] [facility] [address] [id number] [place] [address]- 9437 Mar, [facility] [place] [facility] [address] [id number] [place] [address]- 9543 Mar, [facility] [place] [facility] [address] [id number] [place] [address]- 1687 Feb, [facility] [place] [facility] [address] [id number] [place] [address]- 7319 Feb, [facility] [place] [facility] [address] [facility] [id number] [place] [address]- 8184 Feb, [facility] [place] [facility] [address] [id number] [place] [address]- 4193 Feb, [facility] [place] [facility] [address] [id number] [place] [address]- 6871 Jan, [facility] [place] [facility] [address] [id number] [place] [address]- 5325 Jan, [facility] [place] [facility] [address] [facility] [id number] [place] [address]- 2276 Jan, [facility] [place] [facility] [address] [id number] [place] [address]- 5181 Jan, [facility] [place] [facility] [address] [facility] [id number] [place] [address]- 5379 Jan, [facility] [place] [facility] [address] [facility] [id number] [place] [address]- 9937 Jan, [facility] [place] [facility] [address] [facility] [id number] [place] [address]- 5153 Jan, [facility] [place] [facility] [address] [id number] [place] [address]- 0687 Jan, [facility] [place] [facility] [address] [id number] [place]268 Jan, [facility] [place] [facility] [address] [facility] [id number] [place] [address]- 0664 26 Dec, 2012 [facility] [place] [facility] [address] [facility] [id number] [place] [address]358 16 Dec, 2012 [facility] [place] [facility] [address] [id number] [place] [address]- 7420 16 Dec, 2012 [facility] [address] [id number] [place] [address]- 3824 Dec, [facility] [place] [facility] [address] [id number] [place] [address] 2546 Nov, [facility] [address] [id number] [place] [address]- 1276 Nov, [facility] [address] [id number] [place] [address]- 8569 Nov, [facility] [address] [id number] [place] [address]- 0463 Nov, [facility] [address] [id number] [place] [address]- 1296 Oct, [facility] [address] [id number] [place] [address]- 2422 Sep, [facility] [address] [id number] [place] [address]- 5848 August, [facility] [address] [id number] [place] [address]- 3985 August, [facility] [address] [id number] [place] [address]- 9396 August, [facility] [address] [id number] [place] [address]- 8122 August, [facility] [address] [id number] [place] [address]- 8955 August, [facility] [place] [facility] [address] [id number] [place] [address]- 6050 August, [facility] [place] [facility] [address] [id number] [place] [address]- 9846 August, [facility] [place] [facility] [address] [id number] [place] [address]- 1340 August, [facility] [address] [id number] [place] [address]- 0036 August, [facility] [address] [id number] [place] [address]- 2349 August, [facility] [address] [id number] [place] [address]- 0645 August, [facility] [address] [id number] [place] [address]- 4931 August, [facility] [address] [id number] [place] [address]- 5540 Jul, [facility] [address] [id number] [place] [address]- 7334 Jul, [facility] [address] [id number] [place] [address]- 7599 Jul, [facility] [address] [id number] [place] [address]- 7010 Jul, [facility] [address] [id number] [place] [address]- 9418 Jul, [facility] [address] [id number] [place] [address]- 1904 Jul, [facility] [address] [id number] [place] [address]- 0440 Jul, [facility] [place] [facility] [address] [id number] [place] [address]- 0389 Jul, [facility] [place] [facility] [address] [id number] [place] [address]- 6183 Jul, [facility] [place] [facility] [address] [id number] [place] [address]- 0955 Jul, [facility] [place] [facility] [address] [id number] [place] [address]- 2657 Jul, [facility] [place] [facility] [address] [id number] [place] [address]- 1130 Jun, [facility] [address] [id number] [place] [address]- 7666 Jun, [facility] [place] [facility] [address] [id number] [place] [address]- 9416 Jun, [facility] [address] [id number] [place] [address]- 0526 Jun, [facility] [place] [facility] [address] [id number] [place] [address] 2546 May, [facility] [address] [id number] [place] [address]- 0506 14 May, 2012 [facility] [place] [facility] [address] [id number] [place] [address]- 2546 05 May, 2012 [facility] [place] [facility] [address] [id number] [place] [address] 2546 May, [facility] [address] [id number] [place] [address]- 3647 May, [facility] [place] [facility] [address] [id number] [place] [address]- 0074 May, [facility] [address] [facility] [id number] [place] [address]- 4069 Apr, [facility] [place] [facility] [address] [id number] [place] [address] 2546 Apr, [facility] [place] [facility] [address] [id number] [place] [address] 2546 30 Apr, 2012 [facility] [place] [facility] [address] [id number] [place] [address] 2546 Apr, [facility] [place] [facility] [address] [id number] [place] [address] 2546 Mar, [facility] [place] [facility] [address] [id number] [place] [address]- 0478 Mar, [facility] [place] [facility] [address] [id number] [place] [address]- 9360 14 Mar, 2012 [facility] [place] [facility] [address] [id number] [place] [address]- 5240 Mar, [facility] [place] [facility] [address] [id number] [place] [address]- 8874 Mar, [facility] [place] [facility] [address] [id number] [place] [address]- 5977 Mar, [facility] [place] [facility] [address] [id number] [place] [address]- 5992 Mar, [facility] [place] [facility] [address] [id number] [place] [address]- 9604 Feb, [facility] [place] [facility] [address] [id number] [place] [address]- 3918 Feb, [facility] [place] [facility] [address] [id number] [place] [address]- 0373 Feb, [facility] [place] [facility] [address] [id number] [place] [address]- 1068 Feb, [facility] [place] [facility] [address] [id number] [place] [address]- 3459 Jan, [facility] [place] [facility] [address] [id number] [place] [address]- 8920 Jan, [facility] [place] [facility] [address] [id number] [place] [address]- 9382 Jan, [facility] [place] [facility] [address] [id number] [place] [address]- 7760 Jan, [facility] [place] [facility] [address] [id number] [place] 8447 Jan, [facility] [place] [facility] [address] [id number] [place] [address] Jan, [facility] [place] [facility] [address] [id number] [place] [address]- 1687 Dec, [facility] [address] [id number] [place] [address]- 8897 Dec, [facility] [place] [facility] [address] [id number] [place] [address]- 2666 Nov, [facility] [address] [id number] [place] [address]- 5585 Sep, [facility] [place] [facility] [address] [id number] [place] [address]- 2022 August, [facility] [address] [id number] [place] [address]- 6927 August, [facility] [place] [facility] [address] [id number] [place] [address]- 4236 August, [facility] [address] [id number] [place] [address]- 7871 August, [facility] [place] [facility] [address] [id number] [place] [address]- 8508 August, [facility] [address] [id number] [place] [address]- 1359 Jun, [facility] [place] [facility] [address] [id number] [place] [address]- 8456 Jun, [facility] [address] [id number] [place] [address]- 9171 Apr, [facility] [place] [facility] [address] [id number] [place] [address]- 9319 Apr, [facility] [place] [facility] [address] [id number] [place] [address]- 4803 Mar, [facility] [place] [facility] [address] [id number] [place] [address]- 0638 Feb, [facility] [place] [facility] [address] [id number] [place] [address]- 9302 Feb, [facility] [place] [facility] [address] [facility] [id number] [place] [address] Feb, [facility] [id number] [place] [address] Jan, [facility] [address] [facility] [id number] [place] [address] Jan, [facility] [address] [facility] [id number] [place] [address] Jan, [facility] [address] [facility] [id number] [place] [address] Jan, [facility] [address] [facility] [id number] [place] [id number] May, [facility] [id number] [place] [address] Mar, [facility] [id number] [place] [address] Oct, [facility] [id number] [place] [address] Sep, [facility] [id number] [place] [address] Mar, [facility] [id number] [place] [address] Jan, [facility] [id number] [place] [address] Jan, [facility] [id number] [place] [address] May, IMMUNIZATIONS No Known Immunizations SOCIAL HISTORY Never Assessed REASON FOR VISIT rt arm pain -- gonzalez ferguson PLAN OF CARE Activity Details Follow Up Referral to ortho Reason:right arm pain VITAL SIGNS Height 62 in 2017-06-26 Weight 182.0 lbs 2017-06-26 Temperature 98.7 degrees Fahrenheit 2017-06-26 Heart Rate 78 bpm 2017-06-26 Respiratory Rate 18 2017-06-26 BMI 33.28 kg/m2 2017-06-26 Blood pressure systolic 194 mmHg 2017-06-26 Blood pressure diastolic 86 mmHg 2017-06-26 MEDICATIONS Medication Instructions Dosage Frequency Start Date End Date Duration Status Ibuprofen 800 MG Orally PRN for pain 1 tablet as needed Active Klor-Con 10 10 MEQ Orally Once a day 2 tablet with food 24h Active Meclizine HCl 25 MG Orally Once a day 1 tablet as needed 24h Active Triamterene-HCTZ 37.5-25 MG Orally Once a day 1 tablet in the morning 24h 30 Active Amlodipine Besylate 5 mg Orally Once a day 1 tablet 24h Active Lidocaine 4 % Externally Three times a day prn 1 application to affected area as needed Feb, Active Hydrocodone-Acetaminophen 5-325 MG Orally 3 -4 times a day prn. must last 4 weeks 1 tablet as needed May, Active Pravastatin Sodium 20 mg TAKE ONE TABLET BY MOUTH AT BEDTIME 30 Active RESULTS Name Result Date Reference Range Xray : Elbow, Right 3 views (IN HOUSE) 2017-06-26 PROCEDURES Procedure Date Ordered Result Body Site X-RAY EXAM OF ELBOW June 26, 2017 INSTRUCTIONS MEDICATIONS ADMINISTERED No Known Medications MEDICAL (GENERAL) HISTORY Type Description Date Medical History hypertension Medical History Colposcopy with loop electrode excision of the cervix was performed 06/2012, mild squamous atypia (no definite dyplasia). Performed at [facility] Dr. Joy. Medical History Acute suppurative [...]
--- OUTSIDE RECORDS SUMMARY | 2018-06-10 05:07 | XMS REPORT ---
Author Author TANNA HAINES Organization [facility] [place] Address [address] [place] [address] Care Team Providers Care Assistant Secretary Name Role Phone TANNA HAINES Unavailable PROBLEMS Type Condition ICD9-CM Code DPV27-IA Code Onset Dates Condition Status SNOMED Code Problem Anxiety F41.9 Active 08151106 Problem Abnormal glucose R73.09 Active 976746862 Problem Chronic pain due to trauma G89.21 Active 130150765 Problem Hypokalemia E87.6 Active 15686251 Problem Neck pain M54.2 Active 44957586 Problem Neuroforaminal stenosis of spine M99.89 Active 097911731739 Problem Mixed hyperlipidemia E78.2 Active 99648085 Problem Essential hypertension I10 Active 36782622 ALLERGIES Substance Reaction Event Type Date Status Fluarix Quadrivalent rash Drug Allergy Jun, Active Zostavax rash Drug Allergy Jun, Active Macrobid rash Drug Allergy Jun, Active Cipro hives Drug Allergy Jun, Active Bactrim hives Drug Allergy Jun, Active Baclofen Unknown Drug Allergy Jun, Active Amitriptyline HCl dizziness Drug Allergy Jun, Active Peanut Unknown Non Drug Allergy Jun, Active ENCOUNTERS Encounter Location Date Diagnosis [place] [id number] [address] Oct, [facility] [place] [id number] [address] Oct, [place] [id number] [place] [address] 24778- 0327 Oct, Neuroforaminal stenosis of spine M99.89 [place] [address] [address] Oct, Visit for TB skin test Z11.1 [place] [id number] [place] [address] 07587- 5934 05 Oct, 2017 Cystitis without hematuria N30.90 [place] [id number] [place] [address] 35309- 4101 28 Sep, 2017 Screening breast examination Z12.39 [place] [id number] [place] [address] 04716- 8217 26 Sep, 2017 Dysuria R30.0 and Cystitis without hematuria N30.90 [place] [id number] [place] [address] 44087- 6168 14 Sep, 2017 Essential hypertension I10 and Neuroforaminal stenosis of spine M99.89 [place] [id number] [place] [address] 06204- 5627 Sep, Abnormal glucose R73.[address] [address]- [address] August, Lateral epicondylitis, right elbow M77.11 [place] [id number] [place] [address] 04380- 6818 August, Screen for STD (sexually transmitted disease) Z11.3 [place] [id number] [place] [address] 47678- 1266 August, Neuroforaminal stenosis of spine M99.89 ; Mixed hyperlipidemia E78.2 ; Elevated fasting glucose R73.01 ; Screening mammogram, encounter for Z12.31 and Encounter for well woman exam without gynecological exam Z00.00 [place] [id number] [place] [address] 15683- 7161 August, Neuroforaminal stenosis of spine M99.89 [place] [id number] [place] [address] 51218- 8140 August, Essential hypertension I10 ; Hypokalemia E87.6 and Mixed hyperlipidemia E78.2 [place] [id number] [place] [address] 93026- 8274 Jul, [facility] [place] [id number] [place] [address] 71044- 4982 Jul, Neuroforaminal stenosis of spine M99.89 [facility] [place] [id number] [place] [address] 30906- 8413 Jul, Lateral epicondylitis, right elbow M77.11 [place] [id number] [place] [address] 59906- 2735 Jul, [facility] [place] [id number] [place] [address] 27907- 8106 Jun, High ankle sprain of right lower extremity, initial encounter S93.431A [place] [id number] [place] [address] 70686- 3025 Jun, Essential hypertension I10 [place] [id number] [place] [address] 94332- 9933 Jun, [place] [id number] [place] [address] 84309- 0050 Jun, [place] [id number] [place] [address] 58315- 1002 Jun, Neuroforaminal stenosis of spine M99.89 [place] [id number] [place] [address] 61793- 2794 Jun, Pain of right upper extremity M79.601 and Essential hypertension I10 [place] [id number] [place] [address] 12030- 4795 Jun, [place] [id number] [place] [address] 24875- 5765 Jun, Dysuria R30.0 ; Acute cystitis with hematuria N30.01 and Screen for STD (sexually transmitted disease) Z11.3 [place] [id number] [place] [address] 39710- 3056 May, Chronic pain due to trauma G89.21 [place] [id number] [place] [address] 92854- 7223 May, Essential hypertension I10 [place] [address] 40804- 0951 May, Neuroforaminal stenosis of spine M99.89 [place] [id number] [place] [address] 75053- 6024 Apr, Allergic reaction, initial encounter T78.40XA [place] [id number] [place] [address] 53624- 2143 Apr, Low back pain, unspecified back pain laterality, unspecified chronicity, with sciatica presence unspecified M54.5 ; Acute cystitis with hematuria N30.01 ; Neuroforaminal stenosis of spine M99.89 ; Bilateral acute serous otitis media, recurrence not specified H65.03 ; Mixed hyperlipidemia E78.2 ; Essential hypertension I10 ; Immunization counseling Z71.89 and Encounter for immunization Z23 [place] [address] 83593- 0291 Apr, Neck pain M54.2 [place] [address] 81233- 9127 Mar, Neuroforaminal stenosis of spine M99.89 [place] [id number] [place] [address] 98993- 3920 Mar, Pharyngitis due to other organism J02.8 [place] [id number] [place] [address] 61583- 3271 Feb, Neuroforaminal stenosis of spine M99.89 [place] [id number] [place] [address] 21027- 4387 08 Feb, 2017 UTI (urinary tract infection) N39.0 [place] [id number] [place] [address] 56477- 2416 07 Feb, 2017 Recent urinary tract infection Z87.440 ; Neuroforaminal stenosis of spine M99.89 ; Neck pain M54.2 ; Chronic pain due to trauma G89.21 and Recurrent UTI N39.0 [place] [address] 02025- 4814 Feb, [place] [address] 16412- 6810 Jan, Neuroforaminal stenosis of spine M99.89 [place] [address] 65293- 2792 28 Dec, 2016 Neuroforaminal stenosis of spine M99.89 [place] [address] 09590- 6294 18 Dec, 2016 Acute seasonal allergic rhinitis due to pollen J30.1 [place] [address] 87757- 4970 08 Dec, 2016 [place] [address] 37943- 3331 08 Dec, 2016 Acute seasonal allergic rhinitis, unspecified trigger J30.2 ; Allergic conjunctivitis of both eyes H10.13 and Dysfunction of both eustachian tubes H69.83 [place] [address] 29510- 3336 07 Dec, 2016 [place] [address] 56015- 6427 Dec, Nevus D22.9 [place] [address] 77158- 5281 Nov, Chronic pain due to trauma G89.21 and Neuroforaminal stenosis of spine M99.89 [place] [address] 02309- 1452 Nov, Neuroforaminal stenosis of spine M99.89 ; Essential hypertension I10 ; Mixed hyperlipidemia E78.2 ; Hypokalemia E87.6 ; Neck pain M54.2 and Nevus D22.9 [place] [address] 38181- 9573 Oct, Neuroforaminal stenosis of spine M99.89 [facility] [place] [id number] [place] [address] 12962- 3016 Sep, Neuroforaminal stenosis of spine M99.89 [facility] [place] [address] [id number] [address] Sep, [facility] [place] [address] [facility] [place] [id number] [place] [address] 53476- 6512 August, [facility] [place] [id number] [place] [address] 39620- 4056 August, Neck pain M54.2 and Neuroforaminal stenosis of spine M99.89 [facility] [place] [address] [address] 8681 August, Routine gynecological examination Z01.419 and Screening breast examination Z12.39 [facility] [place] [id number] [place] [address] 55968- 2137 Jul, [facility] [place] [id number] [place] [address] 35138- 6887 Jul, [facility] [place] [id number] [place] [address] 84988- 7879 Jul, Neuroforaminal stenosis of spine M99.89 [facility] [place] [address] [address]- 3609 Jul, [facility] [place] [address] [facility] [id number] [address]- 2540 Jul, 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 [facility] [place] [address] [id number] [address] 2546 Jul, [facility] [place] [address] [id number] [address]- 2544 Jul, [facility] [place] [id number] [place] [address] 09682- 2577 Jun, Neuroforaminal stenosis of spine M99.89 [place] [id number] [place] [address] 23685- 6812 Jun, Uterine leiomyoma, unspecified location D25.9 and Allergic reaction caused by a drug, initial encounter T78.40XA [place] [id number] [place] [address] 79506- 5013 Jun, [place] [address] 57659- 6024 May, UTI symptoms R39.9 and Pain of right sacroiliac joint M53.3 [place] [address] 52989- 5310 May, Neuroforaminal stenosis of spine M99.89 [place] [id number] [place] [address] 30743- 4893 May, [place] [address] 61493- 3036 May, Acute mucoid otitis media of left ear H65.112 and Acute non- recurrent maxillary sinusitis J01.00 [place] [id number] [place] [address] 41743- 2970 May, Acute bacterial conjunctivitis of both eyes H10.33 ; Left arm pain M79.602 and Hypokalemia E87.6 [place] [id number] [place] [address] 12520- 8272 Apr, [place] [id number] [place] [address] 30015- 2359 Apr, Neuroforaminal stenosis of spine M99.89 ; Neck pain M54.2 ; Chronic pain due to trauma G89.21 ; Mixed hyperlipidemia E78.2 ; Essential hypertension I10 and Hypokalemia E87.6 [place] [address] 33187- 2864 Mar, Oral candidiasis B37.0 ; Neuroforaminal stenosis of spine M99.89 ; Neck pain M54.2 and Chronic pain due to trauma G89.21 [facility] [place] [id number] [place] [address] 53387- 6216 Feb, [facility] [place] [id number] [place] [address] 21210- 6746 Feb, [facility] [place] [address] 00129- 8656 Feb, UTI (urinary tract infection) N39.0 [facility] [place] [address] 46284- 8371 Feb, Dysuria R30.0 [facility] [place] [id number] [place] [address] 36794- 9274 Feb, Dysuria R30.0 [place] [address] 16973- 6782 Feb, Neuroforaminal stenosis of spine M99.89 ; Neck pain M54.2 ; Essential hypertension I10 ; Chronic pain due to trauma G89.21 ; Dysuria R30.0 ; Abnormal MRI, shoulder R93.8 and Acute cystitis without hematuria N30.00 [facility] [place] [id number] [place] [address] 19927- 9654 Jan, [facility] [place] [id number] [place] [address] 91993- 3001 Jan, [facility] [place] [id number] [place] [address] 40262- 8176 Jan, [facility] [place] [address] 10691- 5269 Jan, Abnormal MRI R93.8 [facility] [place] [id number] [place] [address] 80442- 1370 Dec, [facility] [address] 05091 -3938 15 Dec, 2015 Acute pain of left shoulder M25.512 [facility] [place] [address] [facility] [id number], [place] [address]- 5717 09 Dec, 2015 [facility] [place] [address] [facility] [id number], [place] [address]- 8672 08 Dec, 2015 [facility] [place] [id number] [place] [address] 52564- 4901 07 Dec, 2015 Acute pain of left shoulder M25.512 [facility] [place] [address] [facility] [id number], [place] [address]- 0261 Nov, [facility] [place] [id number] [place] [address] 03050- 9190 Nov, Neuroforaminal stenosis of spine M99.89 ; Neck pain M54.2 ; Abnormal mammogram R92.8 ; Essential hypertension I10 and Chronic pain due to trauma G89.21 [facility] [place] [id number] [address]- 9135 Nov, [facility] [place] [id number] [address]- 6342 Oct, Acute stress disorder F43.0 [facility] [place] [id number] [address]- 9459 Oct, [facility] [place] [address], [place] [address]- 1219 Oct, [facility] [place] [address], [place] [address]- 4586 Oct, [facility] [place] [id number], [place] [address]- 8337 Sep, [facility] [place] [id number] [address]- 0648 August, [facility] [place] [id number] [address]- 1579 Jul, Neuroforaminal stenosis of spine M99.89 ; Neck pain M54.2 ; Abnormal mammogram R92.8 and Essential hypertension I10 [facility] [place] [id number] [place] [address] 77859 2546 Jul, [facility] [place] [id number] [place] [address] 38826 2546 Jul, [facility] [place] [id number] [place] [address] 56968 2546 Jul, Abnormal mammogram R92.8 [facility] [place] [id number] [place] [address] 80444 2546 Jul, [facility] [place] [id number] [place] [address] 80747 2546 Jul, UTI (urinary tract infection) N39.0 [facility] [place] [id number] [place] [address] 91747 2546 Jul, Dysuria R30.0 [facility] [place] [id number] [place] [address] 45540 2546 Jun, [facility] [place] [id number] [place] [address] 56973 2546 Jun, [facility] [place] [id number] [place] [address] 90003 2546 Jun, Hypokalemia E87.6 and Hematuria R31.9 [facility] [place] [id number] [place] [address] 44921 2546 Jun, Hypokalemia E87.6 [facility] [place] [address] [address] 2546 Jun, [facility] [place] [id number] [place] [address] 05819 2546 Jun, Hypokalemia E87.6 [facility] [place] [address] [address] 2546 Jun, Hypokalemia E87.6 [place] [id number] [place] [address] 26642- 9723 15 Jun, 2015 Neuroforaminal stenosis of spine M99.89 ; Hypokalemia E87.6 ; Neck pain M54.2 ; Essential hypertension I10 ; Mixed hyperlipidemia E78.2 and Screening breast examination Z12.39 [facility] [place] [id number] [place] [address] 74370- 3318 08 Jun, 2015 Dysuria R30.0 ; UTI (urinary tract infection) N39.0 and Hematuria R31.9 [place] [id number] [place] [address] 67360- 7267 May, [place] [id number] [place] [address] 86242- 8094 18 May, 2015 High risk sexual behavior Z72.51 ; Hypokalemia E87.6 ; Neuroforaminal stenosis of spine M99.89 ; Neck pain M54.2 ; Essential hypertension I10 ; Mixed hyperlipidemia E78.2 ; STD exposure Z20.2 and Concern about STD in female without diagnosis Z71.1 [place] [id number] [place] [address] 90544- 5489 16 May, 2015 Neuroforaminal stenosis of spine M99.89 ; Neck pain M54.2 ; Hypokalemia E87.6 ; Essential hypertension I10 and Mixed hyperlipidemia E78.2 [place] [id number] [place] [address] 24123- 7362 May, [facility] [id number] [place] [address] 98200 -1856 08 May, 2015 High risk sexual behavior Z72.51 ; STD exposure Z20.2 and Concern about STD in female without diagnosis Z71.1 [facility] [place] [id number] [place] [address] 69473- 6682 05 May, 2015 [facility] [place] [id number] [place] [address] 57253- 8440 Apr, Neuroforaminal stenosis of spine M99.89 ; Mixed hyperlipidemia E78.2 ; Essential hypertension I10 and Hypokalemia E87.6 [facility] [place] [id number] [place] [address] 94994- 9867 Mar, [facility] [place] [id number] [place] [address] 91378- 4342 Mar, Hypokalemia E87.6 [facility] [place] [address] 93108- 4841 Mar, Neuroforaminal stenosis of spine M99.89 ; Mixed hyperlipidemia E78.2 ; Neck pain M54.2 ; Essential hypertension I10 ; Abnormal fasting glucose R73.09 ; Hypokalemia E87.6 and Constipation K59.00 [place] [address] 58251- 6015 Feb, Neuroforaminal stenosis of spine M99.89 ; Mixed hyperlipidemia E78.2 ; Neck pain M54.2 ; Essential hypertension I10 ; Abnormal fasting glucose R73.09 ; Hypokalemia E87.6 and Constipation K59.00 [place] [id number] [place] [address] 80206- 1482 Feb, Elevated fasting blood sugar R73.01 [place] [id number] [place] [address] 09570- 0500 Feb, Elevated fasting blood sugar R73.01 [place] [id number] [place] [address] 11373- 1598 Feb, Hair loss L65.9 [place] [id number] [place] [address] 25235- 6942 Feb, Sinusitis J32.9 ; Essential hypertension I10 and Hair loss L65.9 [facility] [place] [id number] [place] [address] [phone]- [phone] Jan, [facility] [place] [address] [address] Jan, Essential hypertension I10 ; Neuroforaminal stenosis of spine M99.89 ; Neck pain M54.2 ; Mixed hyperlipidemia E78.2 and Anxiety F41.9 [place] [address] [address]- [address] Jan, [facility] [place] [address] [address] Jan, Mixed hyperlipidemia E78.2 ; Essential (primary) hypertension I10 ; Strain of muscle, fascia and tendon at neck level, subsequent encounter S16.1XXD and Tension-type headache, unspecified, not intractable G44.209 [place] [address] [address]- [address] Dec, Lumbar back pain 724.2 and Neuroforaminal stenosis of spine 724.00 [place] [address] [address]- [address] Nov, [place] [address] [address]- [address] Nov, Lumbar back pain 724.2 and Neuroforaminal stenosis of spine 724.00 [place] [address] [address]- [address] Nov, Edema 782.3 ; Lumbar back pain 724.2 ; Essential hypertension, benign 401.1 ; Hyperlipemia 272.4 ; Neuroforaminal stenosis of spine 724.00 and Post-concussion headache 339.20 [place] [id number] [place] [address] [id number]- 1635 Nov, [place] [address] [address] Nov, [place] [address] [address]- [address] Oct, Essential hypertension, benign 401.1 [place] [address] [address]- [address] Oct, Edema 782.3 ; Lumbar back pain 724.2 ; Essential hypertension, benign 401.1 ; Hyperlipemia 272.4 ; Neuroforaminal stenosis of spine 724.00 and Post-concussion headache 339.20 [facility] [place] [id number] [place] [address] [phone]- [address]13 Oct, [facility] [place], [facility] [id number] [place] [address] [phone]- 8265 Oct, Edema 782.3 [facility] [place] [address] [address] Oct, Lumbar back pain 724.2 [place] [address] [address]- 4995 Oct, Cervicalgia 723.1 ; Lumbar back pain 724.2 and High risk medication use V58.69 [place] [address] [address] [place] [id number] [place] [address] 88754- 3152 Sep, [facility] [place] [address] [place] [id number] [place] [address] 20640- 3990 Sep, Lumbar strain 847.2 [place] [address] [place] [id number] [place] [address] 42873- 1544 August, Edema 782.3 and Eustachian tube dysfunction 381.81 [place] [address] [address] [place] [id number] [place] [address] 80304- 9945 August, [facility] [place] [address] [place] [id number] [place] [address] 40479- 8472 August, Eustachian tube dysfunction 381.81 [place] [address] [address] [place] [id number] [place] [address] 33116- 4478 Jul, Otalgia 388.70 and Otitis media 382.9 [facility] [place] [address] [place] [id number] [place] [address] 93856- 1556 Jul, [facility] [place] [address] [place] [id number] [place] [address] 54827- 9707 28 Jul, 2014 [facility] [place] [facility] [address] [id number] [place] [address]- 9971 28 Jul, 2014 [facility] [place] [facility] [address] [id number] [place] [address]- 9581 14 Jul, 2014 [facility] [place] [facility] [address] [facility] [id number] [place] [address]- 0583 13 Jul, 2014 [facility] [place] [facility] [address] [id number] [place] [address]- 1077 27 Jun, 2014 [facility] [place] [facility] [address] [id number] [place] [address]- 8161 27 Jun, 2014 [facility] [place] [facility] [address] [facility] [id number] [place] [address]- 7196 16 Jun, 2014 [facility] [place] [facility] [address] [facility] [id number] [place] [address]- 5419 May, 2014 [facility] [place] [facility] [address] [facility] [id number] [place] [address]- 0566 May, 2014 [facility] [place] [facility] [address] [facility] [id number] [place] [address]- 1306 May, 2014 [facility] [place] [facility] [address] [facility] [id number] [place] [address]- 6090 May, 2014 [facility] [place] [facility] [address] [facility] [id number] [place] [address]- 5444 May, 2014 [facility] [place] [facility] [address] [facility] [id number], [place] [address]- 0706 May, 2014 [facility] [place] [facility] [address] [facility] [id number] [place] [address]- 0843 May, 2014 [facility] [place] [facility] [address] [facility] [id number] [place] [address]- 4260 May, 2014 [facility] [place] [facility] [address] [facility] [id number], [place] [address]- 1480 05 May, 2014 [facility] [place] [facility] [address] [id number] [place] [address]- 1954 May, [facility] [place] [facility] [address] [id number] [place] [address]- 3772 Apr, [facility] [place] [facility] [address] [id number] [place] [address]- 1156 Apr, [facility] [place] [facility] [address] [id number] [place] [address]- 9253 Apr, [facility] [place] [facility] [address] [id number] [place] [address]- 7595 Apr, [facility] [place] [facility] [address] [id number] [place] [address]- 1103 Apr, [facility] [place] [facility] [address] [id number] [place] [address]- 9835 Apr, [facility] [place] [facility] [address] [id number] [place] [address]- 0896 Apr, [facility] [place] [facility] [address] [id number] [place] [address]- 3664 Apr, [facility] [place] [facility] [address] [id number] [place] [address]- 6570 Apr, [facility] [place] [facility] [address] [id number] [place] [address]- 5278 Apr, [facility] [place] [facility] [address] [id number] [place] [address]- 5586 Apr, [facility] [place] [facility] [address] [id number] [place] [address]- 4874 Apr, [facility] [place] [facility] [address] [id number] [place] [address]- 4651 Apr, [facility] [place] [facility] [address] [id number] [place] [address]- 4628 Apr, [facility] [place] [facility] [address] [id number], [place] [address]- 5184 Apr, [facility] [place] [facility] [address] [id number] [place] [address]- 3392 Mar, [facility] [place] [facility] [address] [id number] [place] 7106 Mar, [facility] [place] [facility] [address] [id number] [place] [address]- 1608 Mar, [facility] [place] [facility] [address] [id number] [place] [address]- 8493 Mar, [facility] [place] [facility] [address] [id number] [place] [address]- 3076 Feb, [facility] [place] [facility] [address] [id number] [place] [address]- 1152 Feb, [facility] [place] [facility] [address] [id number] [place] [address]- 5067 Feb, [facility] [place] [facility] [address] [id number] [place] [address]- 5134 Feb, [facility] [place] [facility] [address] [id number] [place] [address]- 1457 Jan, [facility] [place] [facility] [address] [id number] [place] [address]- 7238 Jan, [facility] [place] [facility] [address] [id number], [place] [address]- 1095 Jan, [facility] [place] [facility] [address] [id number], [place] [address]- 9967 Jan, [facility] [place] [facility] [address] [id number], [place] [address]- 0477 Jan, [facility] [place] [facility] [address] [id number], [place] [address]- 6909 Jan, [facility] [place] [facility] [address] [id number] [place] [address]- 2771 Jan, [facility] [place] [facility] [address] [id number] [place] [address]- 9726 Jan, [facility] [place] [facility] [address] [id number] [place] [address]- 1346 Dec, [facility] [place] [facility] [address] [id number] [place] [address]- 0926 Dec, 2013 [facility] [place] [facility] [address] [id number] [place] [address]- 5348 Dec, [facility] [place] [facility] [address] [id number] [place] [address]- 9568 Dec, [facility] [place] [facility] [address] [id number] [place] [address]- 7068 Oct, [facility] [place] [facility] [address] [id number] [place] [address]- 3947 Oct, 2013 [facility] [place] [facility] [address] [id number] [place] [address]- 1688 Oct, 2013 [facility] [place] [facility] [address] [id number] [place] [address]- 0962 Oct, [facility] [place] [facility] [address] [id number] [place] [address]- 9983 Oct, [facility] [place] [facility] [address] [id number] [place] [address]- 0054 Oct, [facility] [place] [facility] [address] [id number] [place] [address]- 8764 Oct, [facility] [place] [facility] [address] [id number] [place] [address]- 3578 Oct, [facility] [place] [facility] [address] [id number] [place] [address]- 8874 Sep, [facility] [place] [facility] [address] [id number] [place] [address]- 9861 Sep, [facility] [place] [facility] [address] [id number] [place] 1770 Sep, [facility] [place] [facility] [address] [id number] [place] [address]- 8054 Sep, [facility] [place] [facility] [address] [id number] [place] [address]- 7143 Sep, [facility] [place] [facility] [address] [id number] [place] [address]- 9381 Sep, [facility] [place] [facility] [address] [id number] [place] [address]- 8150 Sep, [facility] [place] [facility] [address] [id number] [place] [address]- 4149 Sep, [facility] [place] [facility] [address] [id number] [place] [address]- 0605 Sep, [facility] [place] [facility] [address] [id number] [place] [address]- 6769 Sep, [facility] [place] [facility] [address] [id number] [place] [address]- 7375 August, [facility] [place] [facility] [address] [id number] [place] [address]- 9480 August, [facility] [place] [facility] [address] [id number] [place] [address]- 7590 August, [facility] [place] [facility] [address] [id number] [place] [address]- 2345 August, [facility] [place] [facility] [address] [id number] [place] [address]- 1974 August, [facility] [place] [facility] [address] [id number] [place] [address]- 0450 August, [facility] [place] [facility] [address] [id number] [place] [address]- 2530 August, [facility] [place] [facility] [address] [id number] [place] [address]- 4915 August, [facility] [place] [facility] [address] [id number] [place] [address]- 0263 August, [facility] [place] [facility] [address] [id number] [place] [address]- 7896 August, [facility] [place] [facility] [address] [id number] [place] [address]- 1475 August, [facility] [place] [facility] [address] [id number] [place] [address]- 6183 August, [facility] [place] [facility] [address] [id number] [place] [address]- 6781 Jul, [facility] [place] [facility] [address] [id number] [place] [address]- 0331 Jul, [facility] [place] [facility] [address] [id number] [place] [address]- 0324 Jul, [facility] [place] [facility] [address] [id number] [place] [address]- 4911 Jul, [facility] [place] [facility] [address] [id number] [place] [address]- 0065 Jul, [facility] [place] [facility] [address] [id number] [place] [address]- 5573 Jul, [facility] [place] [facility] [address] [id number] [place] [address]- 9402 Jun, [facility] [place] [facility] [address] [id number] [place] [address]- 0029 Jun, [facility] [place] [facility] [address] [id number] [place] [address]- 1331 May, [facility] [place] [facility] [address] [id number] [place] [address]- 6793 May, [facility] [place] [facility] [address] [id number] [place] [address]- 0938 Apr, [facility] [place] [facility] [address] [id number] [place] [address]- 4172 Apr, [facility] [place] [facility] [address] [id number] [place] [address]- 9365 Apr, [facility] [place] [facility] [address] [id number] [place] [address]- 6045 Apr, [facility] [place] [facility] [address] [id number] [place] [address]- 4702 Apr, [facility] [place] [facility] [address] [id number] [place] [address]- 1687 Apr, [facility] [place] [facility] [address] [id number] [place] [address]- 0681 Apr, [facility] [place] [facility] [address] [id number] [place] [address]- 9843 Apr, [facility] [place] [facility] [address] [id number] [place] [address]- 9636 Apr, [facility] [place] [facility] [address] [id number] [place] [address]- 5119 Apr, [facility] [place] [facility] [address] [id number] [place] [address]- 1223 Apr, [facility] [place] [facility] [address] [id number] [place] [address]- 5349 Apr, [facility] [place] [facility] [address] [id number] [place] [address]- 9653 Apr, [facility] [place] [facility] [address] [id number] [place] [address]- 3439 Mar, [facility] [place] [facility] [address] [id number] [place] [address]- 5506 Mar, [facility] [place] [facility] [address] [id number] [place] [address]- 2875 Mar, [facility] [place] [facility] [address] [id number] [place] [address]- 3499 Mar, [facility] [place] [facility] [address] [id number] [place] [address]- 9226 Feb, [facility] [place] [facility] [address] [id number] [place] [address]- 3636 Feb, [facility] [place] [facility] [address] [id number] [place] [address]- 9467 Feb, [facility] [place] [facility] [address] [id number] [place] [address]- 7306 Feb, [facility] [place] [facility] [address] [id number], [place] [address]- 7343 Jan, [facility] [place] [facility] [address] [id number] [place] [address]- 7569 14 Jan, 2013 [facility] [place] [facility] [address] [id number] [place] [address]- 4893 Jan, [facility] [place] [facility] [address] [id number] [place] [address]- 7631 Jan, [facility] [place] [facility] [address] [id number], [place] [address]- 1300 Jan, [facility] [place] [facility] [address] [id number] [place] [address]- 0339 Jan, [facility] [place] [facility] [address] [id number] [place] [address]- 7273 Jan, [facility] [place] [facility] [address] [id number], [place] [address]- 8748 Jan, [facility] [place] [facility] [address] [id number], [place] [address]- 4703 Jan, [facility] [place] [facility] [address] [id number] [place] 0737 26 Dec, 2012 [facility] [place] [facility] [address] [id number] [place] [address]- 4957 16 Dec, 2012 [facility] [place] [facility] [address] [id number] [place] 7627 16 Dec, 2012 [facility] [place] [facility] [address] [id number] [place] [address]- 7500 Dec, [facility] [address] [id number] [place] [address]- 0315 Nov, [facility] [address] [id number] [place] [address]- 7462 Nov, [facility] [address] [id number] [place] [address]- 1048 Nov, [facility] [address] [id number] [place] [address]- 3402 Nov, [facility] [address] [id number] [place] [address]- 3364 Oct, [facility] [address] [id number] [place] [address]- 1036 Sep, [facility] [address] [id number] [place] [address]- 5454 August, [facility] [address] [id number] [place] [address]- 8859 August, [facility] [address] [id number] [place] [address]- 6845 August, [facility] [address] [id number] [place] [address]- 4328 August, [facility] [address] [id number] [place] [address]- 2345 August, [facility] [address] [id number] [place] [address]- 9043 August, [facility] [address] [id number] [place] [address]- 5505 August, [facility] [address] [id number] [place] [address]- 1810 August, [facility] [address] [id number] [place] [address]- 8102 August, [facility] [address] [id number] [place] [address]- 4945 August, [facility] [address] [id number] [place] [address]- 6165 August, [facility] [address] [id number] [place] [address]- 2624 August, [facility] [address] [id number] [place] [address]- 4754 Jul, [facility] [address] [id number] [place] [address]- 2082 Jul, [facility] [address] [id number] [place] [address]- 0472 Jul, [facility] [address] [id number] [place] [address]- 3130 Jul, [facility] [address] [id number] [place] [address]- 1799 Jul, [facility] [address] [id number] [place] [address]- 0286 Jul, [facility] [address] [id number] [place] [address]- 7274 Jul, [facility] [address] [id number] [place] [address]- 1581 Jul, [facility] [place] [facility] [address] [id number], [place] [address]- 6717 Jul, [facility] [place] [facility] [address] [id number] [place] [address]- 1088 Jul, [facility] [place] [facility] [address] [id number] [place] [address]- 7111 Jul, [facility] [place] [facility] [address] [id number], [place] [address]- 9878 Jun, [facility] [place] [facility] [address] [id number], [place] [address]- 2443 Jun, [facility] [address] [id number] [place] [address]- 1664 Jun, [facility] [place] [facility] [address] [id number] [place] [address]- 1976 Jun, [facility] [address] [id number] [place] [address]- 5346 May, [facility] [place] [facility] [address] [id number] [place] [address]- 4541 14 May, 2012 [facility] [address] [id number] [place] [address]- 6029 May, [facility] [address] [id number] [place] [address]- 0946 May, [facility] [address] [id number] [place] [address]- 0700 May, [facility] [address] [id number] [place] [address]- 6262 May, [facility] [address] [id number] [place] [address]- 4212 Apr, [facility] [address] [id number] [place] [address]- 7427 Apr, [facility] [address] [id number] [place] [address]- 4227 30 Apr, 2012 [facility] [place] [facility] [address] [id number] [place] [address]- 2115 Apr, [facility] [place] [facility] [address] [id number] [place] [address]- 8339 15 Mar, 2012 [facility] [place] [facility] [address] [id number] [place] [address] 14 Mar, 2012 [facility] [address] [id number] [place] [address] 14 Mar, 2012 [facility] [place] [facility] [address] [id number] [place] [address] Mar, [facility] [place] [facility] [address] [id number] [place] [address] Mar, [facility] [place] [facility] [address] [id number] [place] [address] Mar, [facility] [place] [facility] [address] [id number] [place] [address] Mar, [facility] [place] [facility] [address] [id number] [place] [address] Feb, [facility] [place] [facility] [address] [id number] [place] [address] Feb, [facility] [place] [facility] [address] [id number] [place] [address] Feb, [facility] [place] [facility] [address] [id number] [place] [address] Feb, [facility] [place] [facility] [address] [id number] [place] [address] Jan, [facility] [place] [facility] [address] [id number] [place] [address]- [address]83 Jan, [facility] [place] [facility] [address] [id number] [place] [address] Jan, [facility] [place] [facility] [address] [id number], [place] [address] Jan, [facility] [place] [facility] [address] [id number] [place] [address] Jan, [facility] [place] [facility] [address] [id number] [place] [address] Jan, [facility] [place] [facility] [address] [id number] [place] [address] Dec, [facility] [place] [facility] [address] [id number], [place] [address] Dec, [facility] [address] [id number] [place] [address] Nov, [facility] [place] [facility] [address] [id number] [place] [address] Sep, [facility] [place] [facility] [address] [id number] [place] [address]271 August, [facility] [place] [facility] [address] [id number] [place] [address] August, [facility] [place] [facility] [address] [id number] [place] [address]36 August, [facility] [place] [facility] [address] [id number] [place] [address] 2471 August, [facility] [place] [facility] [address] [id number] [place] [address]81 August, [facility] [place] [facility] [address] [id number] [place] [address] Jun, [facility] [place] [facility] [address] [id number] [place] [address] Jun, [facility] [place] [facility] [address] [id number] [place] [address] Apr, [facility] [place] [facility] [address] [id number] [place] [address]906 Apr, [facility] [place] [facility] [address] [id number] [place] [address] 38[address] Mar, [facility] [place] [facility] [address] [id number] [place] [address] Feb, [facility] [place] [facility] [address] [id number] [place] [address] Feb, [facility] [place] [facility] [address] [id number] [place] [address] Feb, [facility] [place] [facility] [id number], [place] [address] 17 Jan, 2011 [facility] [place] [id number] [place] [address]- [address] 15 Jan, 2011 [facility] [place] [id number], [place] [address] 15 Jan, 2011 [facility] [place] [id number] [place] [address]- [address]444 14 Jan, 2011 [facility] [place] [id number] [place] [address]- [address]284 May, [facility] [place] [id number] [place] [address]- 4526 Mar, [facility] [place] [id number] [place] [address]- 4218 Oct, [facility] [place] [id number] [place] [address]- [address] Sep, [facility] [place] [id number] [place] [address]- 9019 Mar, [facility] [place] [id number] [place] [address]- 2447 Jan, [facility] [place] [id number], [place] [address] Jan, [facility] [place] [address] [id number] [address] May, IMMUNIZATIONS No Known Immunizations SOCIAL HISTORY Never Assessed REASON FOR VISIT allergies updated PLAN OF CARE VITAL SIGNS MEDICATIONS Unknown [...]
--- OUTSIDE RECORDS SUMMARY | 2018-06-10 05:08 | XMS REPORT ---
Author Author SIMA HODGES [facility] Address [address] [place] [address] Care Team Providers Care [employer] Name Role Phone SIMA HODGES Unavailable PROBLEMS Type Condition ICD9-CM Code JJC12-EU Code Onset Dates Condition Status SNOMED Code Problem Anxiety F41.9 Active 70252940 Problem Abnormal glucose R73.09 Active 666252597 Problem Chronic pain due to trauma G89.21 Active 826982453 Problem Hypokalemia E87.6 Active 04833775 Problem Neck pain M54.2 Active 63675047 Problem Neuroforaminal stenosis of spine M99.89 Active 642367585555 Problem Mixed hyperlipidemia E78.2 Active 61498103 Problem Essential hypertension I10 Active 60069395 ALLERGIES No Information ENCOUNTERS Encounter Location Date Diagnosis [place] [address] 10822- 8340 Oct, [place] [address] 19159- 5149 Oct, Cystitis without hematuria N30.90 [place] [address] 06639- 1686 Sep, Screening breast examination Z12.39 [place] [address] 08367- 0604 Sep, Dysuria R30.0 and Cystitis without hematuria N30.90 [place] [address] 35803- 3541 14 Sep, 2017 Essential hypertension I10 and Neuroforaminal stenosis of spine M99.89 [place] [address] 05074- 1246 Sep, Abnormal glucose R73.09 [place] [address] [place] [id number] [place] [address] 53100- 8339 August, Lateral epicondylitis, right elbow M77.11 [place] [address] [place] [id number] [place] [address] 20345- 0452 August, Screen for STD (sexually transmitted disease) Z11.3 [place] [address] 19007- 2314 August, Neuroforaminal stenosis of spine M99.89 ; Mixed hyperlipidemia E78.2 ; Elevated fasting glucose R73.01 ; Screening mammogram, encounter for Z12.31 and Encounter for well woman exam without gynecological exam Z00.00 [place] [address] [place] [id number] [place] [address] 05240- 2901 August, Neuroforaminal stenosis of spine M99.89 [place] [address] 01846- 1446 August, Essential hypertension I10 ; Hypokalemia E87.6 and Mixed hyperlipidemia E78.2 [place] [address] [place] [id number] [place] [address] 98212- 3273 Jul, [place] [address] [place] [id number] [place] [address] 64965- 7505 Jul, Neuroforaminal stenosis of spine M99.89 [place] [address] [place] [id number] [place] [address] 97983- 7240 Jul, Lateral epicondylitis, right elbow M77.11 [place] [address] [place] [id number] [place] [address] 81136- 8640 Jul, [place] [address] 80914- 3389 Jun, High ankle sprain of right lower extremity, initial encounter S93.431A [place] [address] [place] [id number] [place] [address] 77947- 4894 Jun, Essential hypertension I10 [place] [address] [place] [id number] [place] [address] 64916- 8450 Jun, [place] [address] 43288- 4588 Jun, [place] [address] [place] [id number] [place] [address] 97862- 6705 Jun, Neuroforaminal stenosis of spine M99.89 [place] [address] 25047- 4604 Jun, Pain of right upper extremity M79.601 and Essential hypertension I10 [address] 23261- 7239 Jun, [place] [address] 98770- 7825 Jun, Dysuria R30.0 ; Acute cystitis with hematuria N30.01 and Screen for STD (sexually transmitted disease) Z11.3 [place] [address] [place] [id number] [place] [address] 54949- 1916 May, Chronic pain due to trauma G89.21 [place] [address] 65049- 3024 May, Essential hypertension I10 [address] 02663- 0935 May, Neuroforaminal stenosis of spine M99.89 [place] [address] [place] [id number] [place] [address] 78963- 4733 Apr, Allergic reaction, initial encounter T78.40XA [address] 35915- 6989 Apr, Low back pain, unspecified back pain laterality, unspecified chronicity, with sciatica presence unspecified M54.5 ; Acute cystitis with hematuria N30.01 ; Neuroforaminal stenosis of spine M99.89 ; Bilateral acute serous otitis media, recurrence not specified H65.03 ; Mixed hyperlipidemia E78.2 ; Essential hypertension I10 ; Immunization counseling Z71.89 and Encounter for immunization Z23 [facility] [address] [place] [id number] [place] [address] 40179- 4710 08 Apr, 2017 Neck pain M54.2 [facility] [address] [place] [id number] [place] [address] 90354- 4219 Mar, Neuroforaminal stenosis of spine M99.89 [facility] [address] 02607- 3056 Mar, Pharyngitis due to other organism J02.8 [place] [address] 44400- 1471 Feb, Neuroforaminal stenosis of spine M99.89 [place] [address] [place] [id number] [place] [address] 99337- 4920 Feb, UTI (urinary tract infection) N39.0 [facility] [address] [place] [id number] [place] [address] 11793- 2060 Feb, Recent urinary tract infection Z87.440 ; Neuroforaminal stenosis of spine M99.89 ; Neck pain M54.2 ; Chronic pain due to trauma G89.21 and Recurrent UTI N39.0 [facility] [address] [place] [id number] [place] [address] 63512- 1103 Feb, [facility] [address] [place] [id number] [place] [address] 69976- 0960 Jan, Neuroforaminal stenosis of spine M99.89 [facility] [address] [place] [id number] [place] [address] 79906- 9701 Dec, Neuroforaminal stenosis of spine M99.89 [facility] [address] [place] [id number] [place] [address] 00075- 2672 18 Dec, 2016 Acute seasonal allergic rhinitis due to pollen J30.1 [facility] [address] [place] [id number] [place] [address] 98033- 7472 Dec, [place] [address] [place] [id number] [place] [address] 97568- 8202 08 Dec, 2016 Acute seasonal allergic rhinitis, unspecified trigger J30.2 ; Allergic conjunctivitis of both eyes H10.13 and Dysfunction of both eustachian tubes H69.83 [place] [address] [place] [id number] [place] [address] 02603- 4197 Dec, [place] [address] 22852- 4826 Dec, Nevus D22.9 [place] [address] 94298- 3941 Nov, Chronic pain due to trauma G89.21 and Neuroforaminal stenosis of spine M99.89 [place] [address] [place] [id number] [place] [address] 97622- 3786 Nov, Neuroforaminal stenosis of spine M99.89 ; Essential hypertension I10 ; Mixed hyperlipidemia E78.2 ; Hypokalemia E87.6 ; Neck pain M54.2 and Nevus D22.9 [place] [address] [place] [id number] [place] [address] 37319- 8628 Oct, Neuroforaminal stenosis of spine M99.89 [place] [address] [place] [id number] [place] [address] 41464- 0772 Sep, Neuroforaminal stenosis of spine M99.89 [place] [address] [place] [id number] [place] [address] 93014- 8013 Sep, [place] [address] [place] [id number] [place] [address] 68712- 9490 August, [place] [address] [place] [id number] [place] [address] 91824- 5912 August, Neck pain M54.2 and Neuroforaminal stenosis of spine M99.89 [place] [address] [place] [id number] [place] [address] 70386- 7919 August, Routine gynecological examination Z01.419 and Screening breast examination Z12.39 [facility] [id number] [place] [address] 80712- 5164 Jul, [facility] [address] [place] [id number] [place] [address] 62634- 3200 Jul, [facility] [address] [place] [id number] [place] [address] 82520- 5627 Jul, Neuroforaminal stenosis of spine M99.89 [facility] [address] [place] [id number] [place] [address] 32413- 5531 Jul, [facility] [address] [place] [id number] [place] [address] 29576- 9748 Jul, 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 [place] [address] [place] [id number] [place] [address] 92551- 4855 Jul, [facility] [address] [place] [id number] [place] [address] 24474- 2993 Jul, [facility] [address] [place] [id number] [place] [address] 37452- 6873 Jun, Neuroforaminal stenosis of spine M99.89 [facility] [address] [place] [id number] [place] [address] 24845- 9274 Jun, Uterine leiomyoma, unspecified location D25.9 and Allergic reaction caused by a drug, initial encounter T78.40XA [facility] [id number] [place] [address] 40685- 5024 Jun, [facility] [address] [place] [id number] [place] [address] 23962- 6962 May, UTI symptoms R39.9 and Pain of right sacroiliac joint M53.3 [facility] [address] [place] [id number] [place] [address] 83869- 1950 May, Neuroforaminal stenosis of spine M99.89 [place] [address] [place] [id number] [place] [address] 40064- 8764 May, [place] [address] [place] [id number] [place] [address] 23730- 1380 May, Acute mucoid otitis media of left ear H65.112 and Acute non- recurrent maxillary sinusitis J01.00 [place] [address] [place] [id number] [place] [address] 07016- 4934 May, Acute bacterial conjunctivitis of both eyes H10.33 ; Left arm pain M79.602 and Hypokalemia E87.6 [place] [address] [place] [id number] [place] [address] 71803- 5992 Apr, [place] [address] [place] [id number] [place] [address] 94501- 2686 Apr, Neuroforaminal stenosis of spine M99.89 ; Neck pain M54.2 ; Chronic pain due to trauma G89.21 ; Mixed hyperlipidemia E78.2 ; Essential hypertension I10 and Hypokalemia E87.6 [place] [address] [place] [id number] [place] [address] 37219- 5941 Mar, Oral candidiasis B37.0 ; Neuroforaminal stenosis of spine M99.89 ; Neck pain M54.2 and Chronic pain due to trauma G89.21 [place] [address] [place] [id number] [place] [address] 12271- 8148 Feb, [place] [address] [place] [id number] [place] [address] 54153- 2683 Feb, [place] [address] [place] [id number] [place] [address] 83878- 0036 Feb, UTI (urinary tract infection) N39.0 [place] [address] [place] [id number] [place] [address] 74657- 9237 Feb, Dysuria R30.0 [place] [address] [place] [id number] [place] [address] 57260- 9636 Feb, Dysuria R30.0 [facility] [address] [place] [id number] [place] [address] 24977- 5085 Feb, Neuroforaminal stenosis of spine M99.89 ; Neck pain M54.2 ; Essential hypertension I10 ; Chronic pain due to trauma G89.21 ; Dysuria R30.0 ; Abnormal MRI, shoulder R93.8 and Acute cystitis without hematuria N30.00 [facility] [address] [place] [id number] [place] [address] 23728- 7866 Jan, [facility] [address] [place] [id number] [place] [address] 44751- 2968 Jan, [facility] [address] [place] [id number] [place] [address] 32485- 2043 Jan, [facility] [address] [place] [id number] [place] [address] 22137- 0676 Jan, Abnormal MRI R93.8 [facility] [address] [place] [id number] [place] [address] 34501- 8681 Dec, [facility] [address] [place] [id number] [place] [address] 19258 -1430 15 Dec, 2015 Acute pain of left shoulder M25.512 [facility] [address] [place] [id number] [place] [address] 81469- 2387 09 Dec, 2015 [facility] [address] [place] [id number] [place] [address] 84700- 7413 08 Dec, 2015 [facility] [address] [place] [id number] [place] [address] 94927- 0091 07 Dec, 2015 Acute pain of left shoulder M25.512 [facility] [address] [place] [id number] [place] [address] 71217- 6782 Nov, [facility] [address] [place] [id number] [place] [address] 43369- 7372 Nov, Neuroforaminal stenosis of spine M99.89 ; Neck pain M54.2 ; Abnormal mammogram R92.8 ; Essential hypertension I10 and Chronic pain due to trauma G89.21 [facility] [address] [id number] [address]- 1659 Nov, [facility] [address] [facility] [id number] [address]- 8391 Oct, Acute stress disorder F43.0 [facility] [address] [facility] [id number] [address]- 7138 Oct, [facility] [address] [id number] [address]- 5418 Oct, [facility] [address] [place] [id number] [address]- 3593 Oct, [facility] [address] [place] [id number] [address]- 8638 Sep, [facility] [address] [place] [id number] [address]- 3184 August, [facility] [address] [place] [id number] [address]- 4439 Jul, Neuroforaminal stenosis of spine M99.89 ; Neck pain M54.2 ; Abnormal mammogram R92.8 and Essential hypertension I10 [facility] [address] [address]- 5691 Jul, [facility] [address] [address]- 7566 Jul, [facility] [address] [place] [id number] [address]- 4665 Jul, Abnormal mammogram R92.8 [facility] [address] [address]- 5069 Jul, [facility] [address] [place] [id number] [address]- 6673 Jul, UTI (urinary tract infection) N39.0 [facility] [address] [address]- 5161 Jul, Dysuria R30.0 [facility] [address] [place] [id number] [place] [address] 05342- 9406 Jun, [facility] [address] [place] [id number] [place] [address] 09861- 9298 Jun, [facility] [address] [place] [id number] [place] [address] 02040- 0532 Jun, Hypokalemia E87.6 and Hematuria R31.9 [place] [address] [place] [id number] [place] [address] 41382- 7712 Jun, Hypokalemia E87.6 [place] [address] [place] [id number] [place] [address] 61258- 8551 Jun, [place] [address] [place] [id number] [place] [address] 62614- 8492 Jun, Hypokalemia E87.6 [place] [id number] [place] [address] 90237- 2091 Jun, Hypokalemia E87.6 [place] [address] [place] [id number] [place] [address] 22515- 4314 Jun, Neuroforaminal stenosis of spine M99.89 ; Hypokalemia E87.6 ; Neck pain M54.2 ; Essential hypertension I10 ; Mixed hyperlipidemia E78.2 and Screening breast examination Z12.39 [place] [address] [address]- 3413 Jun, Dysuria R30.0 ; UTI (urinary tract infection) N39.0 and Hematuria R31.9 [place] [id number] [place] [address] 55949- 7868 May, [place] [address] [address]- 6098 May, High risk sexual behavior Z72.51 ; Hypokalemia E87.6 ; Neuroforaminal stenosis of spine M99.89 ; Neck pain M54.2 ; Essential hypertension I10 ; Mixed hyperlipidemia E78.2 ; STD exposure Z20.2 and Concern about STD in female without diagnosis Z71.1 [facility] [address] [place] [id number] [place] [address] 53764- 3887 16 May, 2015 Neuroforaminal stenosis of spine M99.89 ; Neck pain M54.2 ; Hypokalemia E87.6 ; Essential hypertension I10 and Mixed hyperlipidemia E78.2 [place] [address] [place] [id number] [place] [address] 88700- 9776 May, [facility] [address] 18638 -3125 08 May, 2015 High risk sexual behavior Z72.51 ; STD exposure Z20.2 and Concern about STD in female without diagnosis Z71.1 [place] [address] [place] [id number] [place] [address] 49289- 0388 May, [place] [address] 28799- 1179 Apr, Neuroforaminal stenosis of spine M99.89 ; Mixed hyperlipidemia E78.2 ; Essential hypertension I10 and Hypokalemia E87.6 [place] [address] [place] [id number] [place] [address] 42609- 4932 Mar, [place] [address] [place] [id number] [place] [address] 12565- 3845 Mar, Hypokalemia E87.6 [place] [address] [place] [id number] [place] [address] 19075- 6553 Mar, Neuroforaminal stenosis of spine M99.89 ; Mixed hyperlipidemia E78.2 ; Neck pain M54.2 ; Essential hypertension I10 ; Abnormal fasting glucose R73.09 ; Hypokalemia E87.6 and Constipation K59.00 [place] [address] 88467- 3333 Feb, Neuroforaminal stenosis of spine M99.89 ; Mixed hyperlipidemia E78.2 ; Neck pain M54.2 ; Essential hypertension I10 ; Abnormal fasting glucose R73.09 ; Hypokalemia E87.6 and Constipation K59.00 [place] [address] [place] [id number] [place] [address] 86643- 7119 Feb, Elevated fasting blood sugar R73.01 [place] [address] 18038- 5418 Feb, Elevated fasting blood sugar R73.01 [place] [address] 70157- 9923 Feb, Hair loss L65.9 [place] [address] 14296- 7290 Feb, Sinusitis J32.9 ; Essential hypertension I10 and Hair loss L65.9 [place] [address] 92669- 0785 Jan, [place] [address] 11406- 3509 Jan, Essential hypertension I10 ; Neuroforaminal stenosis of spine M99.89 ; Neck pain M54.2 ; Mixed hyperlipidemia E78.2 and Anxiety F41.9 [place] [address] [place] [id number] [place] [address] 05922- 4238 Jan, [place] [address] 93555- 0773 Jan, Mixed hyperlipidemia E78.2 ; Essential (primary) hypertension I10 ; Strain of muscle, fascia and tendon at neck level, subsequent encounter S16.1XXD and Tension-type headache, unspecified, not intractable G44.209 [place] [address] [place] [id number] [place] [address] 55455- 1829 Dec, Lumbar back pain 724.2 and Neuroforaminal stenosis of spine 724.00 [place] [id number] [place] [address] 84490- 3116 Nov, [facility] [address] [place] [id number] [place] [address] 69324- 0671 Nov, Lumbar back pain 724.2 and Neuroforaminal stenosis of spine 724.00 [facility] [address] [place] [id number] [place] [address] 23084- 0166 Nov, Edema 782.3 ; Lumbar back pain 724.2 ; Essential hypertension, benign 401.1 ; Hyperlipemia 272.4 ; Neuroforaminal stenosis of spine 724.00 and Post-concussion headache 339.20 [facility] [address] [place] [id number] [place] [address] 35626- 5848 Nov, [facility] [address] [place] [id number] [place] [address] 90368- 4628 Nov, [facility] [address] [place] [id number] [place] [address] 72452- 7600 Oct, Essential hypertension, benign 401.1 [facility] [address] [place] [id number] [place] [address] 53858- 3861 Oct, Edema 782.3 ; Lumbar back pain 724.2 ; Essential hypertension, benign 401.1 ; Hyperlipemia 272.4 ; Neuroforaminal stenosis of spine 724.00 and Post-concussion headache 339.20 [facility] [address] [place] [id number] [place] [address] 31271- 9353 Oct, [facility] [id number] [place] [address] 00183- 8798 Oct, Edema 782.3 [facility] [address] [id number] [place] [address] 72844- 2367 Oct, Lumbar back pain 724.2 [facility] [id number] [place] [address] 22975- 0795 Oct, Cervicalgia 723.1 ; Lumbar back pain 724.2 and High risk medication use V58.69 [facility] [address] [address]- 4412 Sep, [facility] [address] [address] 2546 Sep, Lumbar strain 847.2 [facility] [address] [address] 2549 August, Edema 782.3 and Eustachian tube dysfunction 381.81 [facility] [address] [place] [id number] [address]- 5726 August, [facility] [address] [id number] [place] [address] 40364- 2497 August, Eustachian tube dysfunction 381.81 [facility] [address] [id number] [place] [address] 59444- 4927 Jul, Otalgia 388.70 and Otitis media 382.9 [facility] [address] [address]- 1381 Jul, [facility] [id number] [place] [address] 64753- 3994 Jul, [facility] [address] [address]- 2311 28 Jul, 2014 [facility] [address] [address]- 6663 14 Jul, 2014 [facility] [address] [address]- 0372 13 Jul, 2014 [facility] [address] [address]- 4897 27 Jun, 2014 [facility] [id number] [address] 27 Jun, 2014 [facility] [id number] [address] 16 Jun, 2014 [facility] [place] [facility] [address] [id number] [place] [address] May, 2014 [facility] [place] [facility] [address] [id number] [place] [address] May, 2014 [facility] [place] [facility] [address] [id number] [place] [address] May, 2014 [facility] [place] [facility] [address] [id number] [place] [address] May, 2014 [facility] [place] [facility] [address] [id number] [place] [address] May, 2014 [facility] [place] [facility] [address] [id number] [place] [address] May, 2014 [facility] [place] [facility] [address] [facility] [id number] [place] [address]- [address] May, 2014 [facility] [place] [facility] [address] [id number] [place] [address] May, 2014 [facility] [place] [facility] [address] [facility] [id number] [place] [address] May, 2014 [facility] [place] [facility] [address] [facility] [id number] [place] [address] May, [facility] [place] [facility] [address] [facility] [id number] [place] [address] Apr, [facility] [place] [facility] [address] [id number] [place] [address] Apr, [facility] [place] [facility] [address] [id number] [place] [address] Apr, [facility] [place] [facility] [address] [id number] [place] [address] Apr, [facility] [place] [facility] [address] [facility] [id number] [place] [address] Apr, [facility] [place] [facility] [address] [id number] [place] [address] Apr, [facility] [address] [id number] [place] [address] Apr, [facility] [place] [facility] [address] [id number] [place] [address] Apr, [facility] [place] [facility] [address] [id number] [place] [address] 1468 Apr, [facility] [place] [facility] [address] [id number] [place] [address] Apr, [facility] [place] [facility] [address] [id number] [place] [address] Apr, [facility] [place] [facility] [address] [id number] [place] [address] Apr, [facility] [place] [facility] [address] [id number] [place] [address] Apr, [facility] [place] [facility] [address] [id number] [place] [address] Apr, [facility] [place] [facility] [address] [id number] [place] [address] Apr, [facility] [place] [facility] [address] [address] [id number] [place] [address] Mar, [facility] [place] [facility] [address] [id number] [place] [address] 6907 Mar, [facility] [place] [facility] [address] [id number] [place] [address] 2321 Mar, [facility] [place] [facility] [address] [id number] [place] [address] 1905 Mar, [facility] [place] [facility] [address] [id number] [place] [address] 5490 Feb, [facility] [place] [facility] [address] [id number] [place] [address] 8843 Feb, [facility] [place] [facility] [address] [id number] [place] [address] 7255 Feb, [facility] [place] [facility] [address] [id number] [place] [address] Feb, [facility] [place] [facility] [address] [id number] [place] [address] Jan, [facility] [place] [facility] [address] [id number] [place] [address] 4861 Jan, [facility] [place] [facility] [address] [id number] [place] [address]- 4424 Jan, [facility] [place] [facility] [address] [id number] [place] [address] 6099 Jan, [facility] [place] [facility] [address] [id number] [place] [address] 0601 Jan, [facility] [place] [facility] [address] [id number] [place] [address]- 1233 Jan, [facility] [place] [facility] [address] [id number] [place] [address]- 5472 Jan, [facility] [place] [facility] [address] [id number] [place] [address]- 8814 Jan, [facility] [place] [facility] [address] [id number] [place] [address]- 5953 29 Dec, 2013 [facility] [place] [facility] [address] [id number] [place] [address]- 6391 29 Dec, 2013 [facility] [place] [facility] [address] [id number] [place] [address]- 6374 04 Dec, 2013 [facility] [place] [facility] [address] [id number] [place] [address] 2546 04 Dec, 2013 [facility] [place] [facility] [address] [id number] [place] [address] 14 Oct, 2013 [facility] [place] [facility] [address] [id number] [place] [address]- 6276 Oct, 2013 [facility] [place] [facility] [address] [id number] [place] [address]- 7543 Oct, 2013 [facility] [place] [facility] [address] [id number] [place] [address]- 6640 Oct, 2013 [facility] [place] [facility] [address] [id number] [place] [address]- 1828 Oct, 2013 [facility] [place] [facility] [address] [id number] [place] [address]- 9848 Oct, 2013 [facility] [place] [facility] [address] [id number] [place] [address]- 0061 Oct, 2013 [facility] [place] [facility] [address] [id number] [place] [address]- 3975 Oct, 2013 [facility] [place] [facility] [address] [id number] [place] [address]- 4651 Sep, [facility] [place] [facility] [address] [id number] [place] [address]- 5469 Sep, [facility] [place] [facility] [address] [id number] [place] [address]- 7546 Sep, [facility] [place] [facility] [address] [id number] [place] [address]- 5218 Sep, [facility] [place] [facility] [address] [id number] [place] [address]- 2714 Sep, [facility] [place] [facility] [address] [id number] [place] [address]- 2537 Sep, [facility] [place] [facility] [address] [id number] [place] [address]- 9898 Sep, [facility] [place] [facility] [address] [id number] [place] [address]- 6252 Sep, [facility] [place] [facility] [address] [id number] [place] [address]- 7345 Sep, [facility] [place] [facility] [address] [id number] [place] [address]- 9761 Sep, [facility] [address] [id number] [place] [address] 9576 August, [facility] [place] [facility] [address] [id number] [place] [address] 3746 August, [facility] [address] [id number] [place] [address]- 8628 August, [facility] [place] [facility] [address] [id number] [place] [address]- 8560 August, [facility] [address] [id number] [place] [address]- 4946 August, [facility] [place] [facility] [address] [id number] [place] [address] 0156 August, [facility] [address] [id number] [place] [address]- 4259 August, [facility] [address] [id number] [place] [address]- 3527 August, [facility] [place] [facility] [address] [id number] [place] [address]- 9426 August, [facility] [address] [id number] [place] [address]- 6002 August, [facility] [place] [facility] [address] [id number] [place] [address]- 1429 August, [facility] [place] [facility] [address] [id number] [place] [address] 2683 August, [facility] [place] [facility] [address] [id number] [place] [address]- 7872 Jul, [facility] [place] [facility] [address] [id number] [place] [address]- 8626 Jul, [facility] [place] [facility] [address] [id number] [place] [address]- 8922 Jul, [facility] [place] [facility] [address] [id number] [place] [address]- 9289 Jul, [facility] [place] [facility] [address] [id number] [place] [address]- 1956 Jul, [facility] [place] [facility] [address] [id number] [place] [address]- 7098 Jul, [facility] [place] [facility] [address] [id number] [place] [address]- 9330 Jun, [facility] [place] [facility] [address] [id number] [place] [address]- 8598 Jun, [facility] [place] [facility] [address] [id number] [place] [address] 1925 May, [facility] [place] [facility] [address] [id number] [place] [address]- 1854 May, [facility] [place] [facility] [address] [id number] [place] [address]- 9971 Apr, [facility] [place] [facility] [address] [id number] [place] [address]- 3758 Apr, [facility] [place] [facility] [address] [id number] [place] [address]- 0446 Apr, [facility] [place] [facility] [address] [id number] [place] [address]- 3389 Apr, [facility] [place] [facility] [address] [id number] [place] [address]- 1387 Apr, [facility] [place] [facility] [address] [id number] [place] [address]- 5833 Apr, [facility] [place] [facility] [address] [id number] [place] [address]- 9678 Apr, [facility] [place] [facility] [address] [id number] [place] [address]- 1608 Apr, [facility] [place] [facility] [address] [id number] [place] [address]- 6677 Apr, [facility] [address] [id number] [place] [address]- 1989 Apr, [facility] [place] [facility] [address] [id number] [place] [address]- 0523 Apr, [facility] [place] [facility] [address] [facility] [id number] [place] [address]- 0419 Apr, [facility] [place] [facility] [address] [id number] [place] [address]- 1151 Apr, [facility] [place] [facility] [address] [id number] [place] [address]- 2175 Mar, [facility] [place] [facility] [address] [id number] [place] [address]- 7699 Mar, [facility] [place] [facility] [address] [facility] [id number] [place] [address]- 3053 Mar, [facility] [place] [facility] [address] [id number] [place] [address]- 2929 Mar, [facility] [place] [facility] [address] [facility] [id number] [place] [address]- 1235 Feb, [facility] [place] [facility] [address] [facility] [id number] [place] [address]- 0944 Feb, [facility] [place] [facility] [address] [id number] [place] [address]- 1991 Feb, [facility] [place] [facility] [address] [id number] [place] [address]- 1452 Feb, [facility] [place] [facility] [address] [id number] [place] [address]- 8126 14 Jan, 2013 [facility] [place] [facility] [address] [id number] [place] [address]- 2226 14 Jan, 2013 [facility] [place] [facility] [address] [facility] [id number] [place] [address]- 8233 11 Jan, 2013 [facility] [place] [facility] [address] [id number] [place] [address]- 4364 Jan, [facility] [place] [facility] [address] [id number] [place] [address]- 1754 Jan, [facility] [place] [facility] [address] [id number] [place] [address]- 4555 Jan, [facility] [place] [facility] [address] [id number] [place] [address]- 1871 Jan, [facility] [place] [facility] [address] [id number] [place] [address]- 4547 Jan, [facility] [place] [facility] [address] [id number] [place] [address]- 0733 Jan, [facility] [place] [facility] [address] [id number] [place] [address]- 4377 26 Dec, 2012 [facility] [place] [facility] [address] [id number] [place] [address]- 5943 16 Dec, 2012 [facility] [place] [facility] [address] [id number] [place] [address]- 2259 16 Dec, 2012 [facility] [place] [facility] [address] [id number] [place] [address]- 8063 13 Dec, 2012 [facility] [place] [facility] [address] [id number] [place] [address]- 0237 17 Nov, 2012 [facility] [place] [facility] [address] [id number] [place] [address]- 2521 17 Nov, 2012 [facility] [place] [facility] [address] [id number] [place] [address]- 6871 14 Nov, 2012 [facility] [place] [facility] [address] [id number] [place] [address]- 2763 05 Nov, 2012 [facility] [place] [facility] [address] [id number] [place] [address]- 2994 Oct, [facility] [place] [facility] [address] [id number] [place] [address]- 5558 Sep, [facility] [address] [id number] [place] [address]- 0152 August, [facility] [address] [id number] [place] [address]- 0609 August, [facility] [address] [id number] [place] [address]- 9521 August, [facility] [address] [id number] [place] [address]- 9527 August, [facility] [address] [id number] [place] [address]- 8400 August, [facility] [address] [id number] [place] [address]- 0092 August, [facility] [address] [id number] [place] [address]- 8487 August, [facility] [address] [id number] [place] [address]- 0537 August, [facility] [address] [id number] [place] [address]- 1132 August, [facility] [address] [id number] [place] [address]- 4101 August, [facility] [address] [id number] [place] [address]- 6841 August, [facility] [place] [facility] [address] [id number] [place] [address]- 6675 August, [facility] [place] [facility] [address] [id number] [place] [address]- 6410 Jul, [facility] [place] [facility] [address] [id number] [place] [address]- 9361 Jul, [facility] [place] [facility] [address] [id number] [place] [address]- 5430 Jul, [facility] [place] [facility] [address] [id number] [place] [address]- 1702 15 Jul, 2012 [facility] [address] [id number] [place] [address]- 4035 Jul, [facility] [place] [facility] [address] [id number] [place] [address]- 4676 Jul, [facility] [address] [id number] [place] [address]- 2435 Jul, [facility] [place] [facility] [address] [id number] [place] [address]- 6903 Jul, [facility] [address] [id number] [place] [address]- 5874 Jul, [facility] [place] [facility] [address] [id number] [place] [address]- 6545 Jul, [facility] [address] [id number] [place] [address]- 7587 Jul, [facility] [address] [id number] [place] [address]- 9195 Jun, [facility] [address] [id number] [place] [address]- 6424 Jun, [facility] [address] [id number] [place] [address]- 8197 Jun, [facility] [place] [facility] [address] [id number] [place] [address]- 8812 Jun, [facility] [place] [facility] [address] [id number] [place] [address]- 7068 May, [facility] [place] [facility] [address] [id number] [place] [address]- 6172 14 May, 2012 [facility] [place] [facility] [address] [id number] [place] [address]- 8426 05 May, 2012 [facility] [place] [facility] [address] [id number] [place] [address]- 5899 04 May, 2012 [facility] [address] [id number] [place] [address]- 3932 May, [facility] [place] [facility] [address] [id number] [place] [address]- 1116 May, [facility] [place] [facility] [address] [id number] [place] [address]- 8124 Apr, [facility] [place] [facility] [address] [id number] [place] [address]- 5436 Apr, [facility] [place] [facility] [address] [id number] [place] [address]- 0790 Apr, [facility] [place] [facility] [address] [id number] [place] [address]- 6359 Apr, [facility] [place] [facility] [address] [id number] [place] [address]- 3428 15 Mar, 2012 [facility] [place] [facility] [address] [id number] [place] [address]- 9102 14 Mar, 2012 [facility] [place] [facility] [address] [id number] [place] [address] 2548 Mar, [facility] [place] [facility] [address] [id number] [place] [address]- 8971 Mar, [facility] [place] [facility] [address] [id number] [place] [address]- 0869 Mar, [facility] [place] [facility] [address] [id number] [place] [address]- 2992 Mar, [facility] [place] [facility] [address] [id number] [place] [address] 2546 Mar, [facility] [place] [facility] [address] [id number] [place] [address]- 0182 Feb, [facility] [place] [facility] [address] [id number] [place] [address]- 1643 Feb, [facility] [place] [facility] [address] [id number] [place] [address]- 4868 Feb, [facility] [place] [facility] [address] [id number] [place] [address]- 9214 Feb, [facility] [place] [facility] [address] [id number] [place] [address]- 7126 Jan, [facility] [place] [facility] [address] [id number] [place] [address]- 3065 Jan, [facility] [place] [facility] [address] [id number] [place] [address]- 5865 Jan, [facility] [place] [facility] [address] [id number] [place] [address]- 4171 Jan, [facility] [place] [facility] [address] [id number] [place] [address]- 2689 Jan, [facility] [place] [facility] [address] [id number] [place] [address]- 1759 Jan, [facility] [place] [facility] [address] [id number] [place] [address]- 2155 Dec, [facility] [place] [facility] [address] [id number] [place] [address]- 8722 Dec, [facility] [place] [facility] [address] [id number] [place] [address]- 1655 Nov, [facility] [place] [facility] [address] [id number] [place] [address]- 7314 Sep, [facility] [place] [facility] [address] [id number] [place] [address]- 4640 August, [facility] [place] [facility] [address] [id number] [place] [address]- 6769 August, [facility] [place] [facility] [address] [id number] [place] [address]- 7495 August, [facility] [place] [facility] [address] [id number] [place] [address]- 4939 August, [facility] [place] [facility] [address] [id number] [place] [address]- 9701 August, [facility] [place] [facility] [address] [id number] [place] [address]- 9913 Jun, [facility] [place] [facility] [address] [id number] [place] [address]- 0537 Jun, [facility] [place] [facility] [address] [id number] [place] [address]- 7572 Apr, [facility] [place] [facility] [address] [id number] [place] [address]- 6747 Apr, [facility] [place] [facility] [address] [id number] [place] [address]- 0175 Mar, [facility] [place] [facility] [address] [id number] [place] [address]- 9595 Feb, [facility] [place] [facility] [address] [id number] [place] [address]- 5715 Feb, [facility] [place] [facility] [address] [id number] [place] [address]- 6046 Feb, [facility] [place] [facility] [address] [id number] [place] [address]- 5091 17 Jan, 2011 [facility] [place] [facility] [address] [id number] [place] [address]- 6662 15 Jan, 2011 [facility] [place] [facility] [address] [id number] [place] [address]- 6721 15 Jan, 2011 [facility] [place] [facility] [address] [id number] [place] [address]- 7092 14 Jan, 2011 [facility] [place] [facility] [address] [id number] [place] [address]- 5025 15 May, 2010 [facility] [place] [facility] [address] [id number] [place] [address]- 7987 04 Mar, 2010 [facility] [place] [facility] [address] [id number] [place] [address] 0837 Oct, [facility] [address] [facility] [id number] [place] [address]- 2546 Sep, [facility] [address] [id number] [address]- 2546 Mar, [facility] [address] [facility] [id number] [place] [address]- 2546 Jan, [facility] [address] [id number] [address]- 2546 Jan, [facility] [address] [facility] [id number] [place] [address]- 2546 May, IMMUNIZATIONS No Known Immunizations SOCIAL HISTORY Never Assessed REASON FOR VISIT Lab (walk-in) PLAN OF CARE VITAL SIGNS MEDICATIONS Unknown Medications RESULTS No Results PROCEDURES Procedure Date Ordered Result Body Site LIPID PANEL Jun 01, 2017 COMPREHEN METABOLIC PANEL Jun 01, 2017 VENIPUNCT, ROUTINE* Jun 01, 2017 INSTRUCTIONS MEDICATIONS ADMINISTERED No Known Medications MEDICAL (GENERAL) HISTORY Type Description Date Medical History hypertension Medical History Colposcopy with loop electrode excision of the cervix was performed 06/2012, mild squamous atypia (no definite dyplasia). Performed at [facility] Dr. Joy. Medical History Acute suppurative [...]
--- OUTSIDE RECORDS SUMMARY | 2018-06-10 05:08 | XMS REPORT ---
Author Author SIMA HODGES [facility] Address [address] [place] [address] Care Team Providers Care Box Office Attendant Name Role Phone SIMA HODGES Unavailable PROBLEMS Type Condition ICD9-CM Code DGZ89-JE Code Onset Dates Condition Status SNOMED Code Problem Anxiety F41.9 Active 74565351 Problem Abnormal glucose R73.09 Active 047014563 Problem Chronic pain due to trauma G89.21 Active 449060310 Problem Hypokalemia E87.6 Active 62625192 Problem Neck pain M54.2 Active 04820780 Problem Neuroforaminal stenosis of spine M99.89 Active 455756357786 Problem Mixed hyperlipidemia E78.2 Active 45470231 Problem Essential hypertension I10 Active 84841867 ALLERGIES No Information ENCOUNTERS Encounter Location Date Diagnosis [place] [address] 38799- 4703 Oct, [place] [address] 52694- 8124 Oct, Cystitis without hematuria N30.90 [place] [address] 69197- 9144 Sep, Screening breast examination Z12.39 [place] [address] 55718- 4923 Sep, Dysuria R30.0 and Cystitis without hematuria N30.90 [place] [address] 65046- 4164 14 Sep, 2017 Essential hypertension I10 and Neuroforaminal stenosis of spine M99.89 [place] [address] 94811- 4662 Sep, Abnormal glucose R73.09 [place] [address] [place] [id number] [place] [address] 21470- 9176 August, Lateral epicondylitis, right elbow M77.11 [place] [address] [place] [id number] [place] [address] 72965- 0270 August, Screen for STD (sexually transmitted disease) Z11.3 [place] [address] 33131- 3306 August, Neuroforaminal stenosis of spine M99.89 ; Mixed hyperlipidemia E78.2 ; Elevated fasting glucose R73.01 ; Screening mammogram, encounter for Z12.31 and Encounter for well woman exam without gynecological exam Z00.00 [place] [address] [place] [id number] [place] [address] 22345- 0975 August, Neuroforaminal stenosis of spine M99.89 [place] [address] 23954- 7061 August, Essential hypertension I10 ; Hypokalemia E87.6 and Mixed hyperlipidemia E78.2 [place] [address] [place] [id number] [place] [address] 36512- 8457 Jul, [place] [address] [place] [id number] [place] [address] 96642- 1621 Jul, Neuroforaminal stenosis of spine M99.89 [place] [address] [place] [id number] [place] [address] 88929- 8483 Jul, Lateral epicondylitis, right elbow M77.11 [place] [address] [place] [id number] [place] [address] 61524- 8305 Jul, [place] [address] 44212- 0399 Jun, High ankle sprain of right lower extremity, initial encounter S93.431A [place] [address] [place] [id number] [place] [address] 39650- 8316 Jun, Essential hypertension I10 [place] [address] [place] [id number] [place] [address] 64653- 4427 Jun, [place] [address] 97604- 0990 Jun, [place] [address] [place] [id number] [place] [address] 39551- 8588 Jun, Neuroforaminal stenosis of spine M99.89 [place] [address] 52655- 2713 Jun, Pain of right upper extremity M79.601 and Essential hypertension I10 [address] 29375- 9858 Jun, [place] [address] 54219- 7084 Jun, Dysuria R30.0 ; Acute cystitis with hematuria N30.01 and Screen for STD (sexually transmitted disease) Z11.3 [place] [address] [place] [id number] [place] [address] 33722- 9284 May, Chronic pain due to trauma G89.21 [place] [address] 00720- 1241 May, Essential hypertension I10 [address] 54612- 0420 May, Neuroforaminal stenosis of spine M99.89 [place] [address] [place] [id number] [place] [address] 89072- 1310 Apr, Allergic reaction, initial encounter T78.40XA [address] 88379- 5156 Apr, Low back pain, unspecified back pain laterality, unspecified chronicity, with sciatica presence unspecified M54.5 ; Acute cystitis with hematuria N30.01 ; Neuroforaminal stenosis of spine M99.89 ; Bilateral acute serous otitis media, recurrence not specified H65.03 ; Mixed hyperlipidemia E78.2 ; Essential hypertension I10 ; Immunization counseling Z71.89 and Encounter for immunization Z23 [facility] [address] [place] [id number] [place] [address] 40474- 9932 08 Apr, 2017 Neck pain M54.2 [facility] [address] [place] [id number] [place] [address] 61648- 8765 Mar, Neuroforaminal stenosis of spine M99.89 [facility] [address] 88206- 1583 Mar, Pharyngitis due to other organism J02.8 [place] [address] 67152- 0097 Feb, Neuroforaminal stenosis of spine M99.89 [place] [address] [place] [id number] [place] [address] 38702- 5514 Feb, UTI (urinary tract infection) N39.0 [facility] [address] [place] [id number] [place] [address] 93177- 4435 Feb, Recent urinary tract infection Z87.440 ; Neuroforaminal stenosis of spine M99.89 ; Neck pain M54.2 ; Chronic pain due to trauma G89.21 and Recurrent UTI N39.0 [facility] [address] [place] [id number] [place] [address] 45610- 7673 Feb, [facility] [address] [place] [id number] [place] [address] 74576- 4057 Jan, Neuroforaminal stenosis of spine M99.89 [facility] [address] [place] [id number] [place] [address] 01534- 6791 Dec, Neuroforaminal stenosis of spine M99.89 [facility] [address] [place] [id number] [place] [address] 25005- 3512 18 Dec, 2016 Acute seasonal allergic rhinitis due to pollen J30.1 [facility] [address] [place] [id number] [place] [address] 18470- 0758 Dec, [place] [address] [place] [id number] [place] [address] 20577- 4179 08 Dec, 2016 Acute seasonal allergic rhinitis, unspecified trigger J30.2 ; Allergic conjunctivitis of both eyes H10.13 and Dysfunction of both eustachian tubes H69.83 [place] [address] [place] [id number] [place] [address] 97110- 5229 Dec, [place] [address] 00243- 0870 Dec, Nevus D22.9 [place] [address] 86616- 2890 Nov, Chronic pain due to trauma G89.21 and Neuroforaminal stenosis of spine M99.89 [place] [address] [place] [id number] [place] [address] 83908- 0146 Nov, Neuroforaminal stenosis of spine M99.89 ; Essential hypertension I10 ; Mixed hyperlipidemia E78.2 ; Hypokalemia E87.6 ; Neck pain M54.2 and Nevus D22.9 [place] [address] [place] [id number] [place] [address] 11836- 6372 Oct, Neuroforaminal stenosis of spine M99.89 [place] [address] [place] [id number] [place] [address] 58739- 7920 Sep, Neuroforaminal stenosis of spine M99.89 [place] [address] [place] [id number] [place] [address] 95156- 8647 Sep, [place] [address] [place] [id number] [place] [address] 67598- 8685 August, [place] [address] [place] [id number] [place] [address] 74728- 1385 August, Neck pain M54.2 and Neuroforaminal stenosis of spine M99.89 [place] [address] [place] [id number] [place] [address] 50783- 8575 August, Routine gynecological examination Z01.419 and Screening breast examination Z12.39 [facility] [id number] [place] [address] 23497- 4839 Jul, [facility] [address] [place] [id number] [place] [address] 30351- 0226 Jul, [facility] [address] [place] [id number] [place] [address] 79090- 8972 Jul, Neuroforaminal stenosis of spine M99.89 [facility] [address] [place] [id number] [place] [address] 11800- 4142 Jul, [facility] [address] [place] [id number] [place] [address] 28820- 2007 Jul, 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 [place] [address] [place] [id number] [place] [address] 85644- 4574 Jul, [facility] [address] [place] [id number] [place] [address] 99431- 7713 Jul, [facility] [address] [place] [id number] [place] [address] 83604- 0031 Jun, Neuroforaminal stenosis of spine M99.89 [facility] [address] [place] [id number] [place] [address] 73676- 8716 Jun, Uterine leiomyoma, unspecified location D25.9 and Allergic reaction caused by a drug, initial encounter T78.40XA [facility] [id number] [place] [address] 38607- 3860 Jun, [facility] [address] [place] [id number] [place] [address] 11950- 9021 May, UTI symptoms R39.9 and Pain of right sacroiliac joint M53.3 [facility] [address] [place] [id number] [place] [address] 29698- 8127 May, Neuroforaminal stenosis of spine M99.89 [place] [address] [place] [id number] [place] [address] 63242- 4537 May, [place] [address] [place] [id number] [place] [address] 63479- 8600 May, Acute mucoid otitis media of left ear H65.112 and Acute non- recurrent maxillary sinusitis J01.00 [place] [address] [place] [id number] [place] [address] 99280- 7998 May, Acute bacterial conjunctivitis of both eyes H10.33 ; Left arm pain M79.602 and Hypokalemia E87.6 [place] [address] [place] [id number] [place] [address] 82341- 3554 Apr, [place] [address] [place] [id number] [place] [address] 64967- 9432 Apr, Neuroforaminal stenosis of spine M99.89 ; Neck pain M54.2 ; Chronic pain due to trauma G89.21 ; Mixed hyperlipidemia E78.2 ; Essential hypertension I10 and Hypokalemia E87.6 [place] [address] [place] [id number] [place] [address] 91879- 8322 Mar, Oral candidiasis B37.0 ; Neuroforaminal stenosis of spine M99.89 ; Neck pain M54.2 and Chronic pain due to trauma G89.21 [place] [address] [place] [id number] [place] [address] 35887- 9928 Feb, [place] [address] [place] [id number] [place] [address] 73732- 0530 Feb, [place] [address] [place] [id number] [place] [address] 06525- 8477 Feb, UTI (urinary tract infection) N39.0 [place] [address] [place] [id number] [place] [address] 57801- 1435 Feb, Dysuria R30.0 [place] [address] [place] [id number] [place] [address] 06130- 5561 Feb, Dysuria R30.0 [facility] [address] [place] [id number] [place] [address] 01947- 3917 Feb, Neuroforaminal stenosis of spine M99.89 ; Neck pain M54.2 ; Essential hypertension I10 ; Chronic pain due to trauma G89.21 ; Dysuria R30.0 ; Abnormal MRI, shoulder R93.8 and Acute cystitis without hematuria N30.00 [facility] [address] [place] [id number] [place] [address] 69453- 2657 Jan, [facility] [address] [place] [id number] [place] [address] 92389- 1137 Jan, [facility] [address] [place] [id number] [place] [address] 37882- 5264 Jan, [facility] [address] [place] [id number] [place] [address] 05178- 6567 Jan, Abnormal MRI R93.8 [facility] [address] [place] [id number] [place] [address] 16953- 0464 Dec, [facility] [address] [place] [id number] [place] [address] 29397 -3999 15 Dec, 2015 Acute pain of left shoulder M25.512 [facility] [address] [place] [id number] [place] [address] 10247- 6019 09 Dec, 2015 [facility] [address] [place] [id number] [place] [address] 34594- 3693 08 Dec, 2015 [facility] [address] [place] [id number] [place] [address] 35227- 7703 07 Dec, 2015 Acute pain of left shoulder M25.512 [facility] [address] [place] [id number] [place] [address] 96426- 9834 Nov, [facility] [address] [place] [id number] [place] [address] 69830- 7359 Nov, Neuroforaminal stenosis of spine M99.89 ; Neck pain M54.2 ; Abnormal mammogram R92.8 ; Essential hypertension I10 and Chronic pain due to trauma G89.21 [facility] [address] [id number] [address]- 8548 Nov, [facility] [address] [facility] [id number] [address]- 0124 Oct, Acute stress disorder F43.0 [facility] [address] [facility] [id number], [place] [address]- 7560 Oct, [facility] [address] [id number] [address]- 4327 Oct, [facility] [address] [id number] [address]- 9542 Oct, [facility] [address] [id number] [address]- 8375 Sep, [facility] [address] [place] [id number] [address]- 5097 August, [facility] [address] [id number] [address]- 1851 Jul, Neuroforaminal stenosis of spine M99.89 ; Neck pain M54.2 ; Abnormal mammogram R92.8 and Essential hypertension I10 [facility] [address] [address]- 1299 Jul, [facility] [address] [address]- 4499 Jul, [facility] [address] [place] [id number] [address]- 0379 Jul, Abnormal mammogram R92.8 [facility] [address], [place] [address]- 3450 Jul, [facility] [address] [place] [id number] [address]- 0550 Jul, UTI (urinary tract infection) N39.0 [facility] [address], [place] [address]- 0248 Jul, Dysuria R30.0 [facility] [address] [place] [id number] [place] [address] 32498- 7306 Jun, [facility] [address] [place] [id number] [place] [address] 23770- 5975 Jun, [facility] [address] [place] [id number] [place] [address] 10515- 3657 Jun, Hypokalemia E87.6 and Hematuria R31.9 [place] [address] [place] [id number] [place] [address] 13420- 6925 Jun, Hypokalemia E87.6 [place] [address] [place] [id number] [place] [address] 08133- 2812 Jun, [place] [address] [place] [id number] [place] [address] 40957- 6194 Jun, Hypokalemia E87.6 [place] [id number] [place] [address] 80803- 1010 Jun, Hypokalemia E87.6 [place] [address] [place] [id number] [place] [address] 83371- 0061 Jun, Neuroforaminal stenosis of spine M99.89 ; Hypokalemia E87.6 ; Neck pain M54.2 ; Essential hypertension I10 ; Mixed hyperlipidemia E78.2 and Screening breast examination Z12.39 [place] [address], [place] [address]- 5593 Jun, Dysuria R30.0 ; UTI (urinary tract infection) N39.0 and Hematuria R31.9 [place] [id number] [place] [address] 22098- 0360 May, [place] [address], [place] [address]- 4731 May, High risk sexual behavior Z72.51 ; Hypokalemia E87.6 ; Neuroforaminal stenosis of spine M99.89 ; Neck pain M54.2 ; Essential hypertension I10 ; Mixed hyperlipidemia E78.2 ; STD exposure Z20.2 and Concern about STD in female without diagnosis Z71.1 [facility] [address] [place] [id number] [place] [address] 67380- 0001 16 May, 2015 Neuroforaminal stenosis of spine M99.89 ; Neck pain M54.2 ; Hypokalemia E87.6 ; Essential hypertension I10 and Mixed hyperlipidemia E78.2 [place] [address] [place] [id number] [place] [address] 52333- 4879 May, [facility] [address] 80504 -3224 08 May, 2015 High risk sexual behavior Z72.51 ; STD exposure Z20.2 and Concern about STD in female without diagnosis Z71.1 [place] [address] [place] [id number] [place] [address] 71540- 5742 May, [place] [address] 85308- 2836 Apr, Neuroforaminal stenosis of spine M99.89 ; Mixed hyperlipidemia E78.2 ; Essential hypertension I10 and Hypokalemia E87.6 [place] [address] [place] [id number] [place] [address] 79321- 9148 Mar, [place] [address] [place] [id number] [place] [address] 47208- 6888 Mar, Hypokalemia E87.6 [place] [address] [place] [id number] [place] [address] 84264- 4988 Mar, Neuroforaminal stenosis of spine M99.89 ; Mixed hyperlipidemia E78.2 ; Neck pain M54.2 ; Essential hypertension I10 ; Abnormal fasting glucose R73.09 ; Hypokalemia E87.6 and Constipation K59.00 [place] [address] 23918- 3337 Feb, Neuroforaminal stenosis of spine M99.89 ; Mixed hyperlipidemia E78.2 ; Neck pain M54.2 ; Essential hypertension I10 ; Abnormal fasting glucose R73.09 ; Hypokalemia E87.6 and Constipation K59.00 [place] [address] [place] [id number] [place] [address] 00269- 4066 Feb, Elevated fasting blood sugar R73.01 [place] [address] 48925- 8858 Feb, Elevated fasting blood sugar R73.01 [place] [address] 69437- 5050 Feb, Hair loss L65.9 [place] [address] 99643- 2889 Feb, Sinusitis J32.9 ; Essential hypertension I10 and Hair loss L65.9 [place] [address] 00941- 7146 Jan, [place] [address] 76386- 7317 Jan, Essential hypertension I10 ; Neuroforaminal stenosis of spine M99.89 ; Neck pain M54.2 ; Mixed hyperlipidemia E78.2 and Anxiety F41.9 [place] [address] [place] [id number] [place] [address] 69952- 7397 Jan, [place] [address] 72155- 8188 Jan, Mixed hyperlipidemia E78.2 ; Essential (primary) hypertension I10 ; Strain of muscle, fascia and tendon at neck level, subsequent encounter S16.1XXD and Tension-type headache, unspecified, not intractable G44.209 [place] [address] [place] [id number] [place] [address] 53771- 2163 Dec, Lumbar back pain 724.2 and Neuroforaminal stenosis of spine 724.00 [place] [id number] [place] [address] 73292- 1815 Nov, [facility] [address] [id number] [place] [address] 65013- 5718 Nov, Lumbar back pain 724.2 and Neuroforaminal stenosis of spine 724.00 [facility] [address] [id number] [place] [address] 02730- 9074 Nov, Edema 782.3 ; Lumbar back pain 724.2 ; Essential hypertension, benign 401.1 ; Hyperlipemia 272.4 ; Neuroforaminal stenosis of spine 724.00 and Post-concussion headache 339.20 [facility] [address] [place] [id number] [place] [address] 89126- 2424 Nov, [facility] [address] [id number] [place] [address] 15668- 2200 Nov, [facility] [address] [id number] [place] [address] 92143- 3902 Oct, Essential hypertension, benign 401.1 [facility] [address] [place] [id number] [place] [address] 63776- 4953 Oct, Edema 782.3 ; Lumbar back pain 724.2 ; Essential hypertension, benign 401.1 ; Hyperlipemia 272.4 ; Neuroforaminal stenosis of spine 724.00 and Post-concussion headache 339.20 [facility] [id number] [place] [address] 69393- 6324 Oct, [facility] [id number] [place] [address] 37449- 6545 Oct, Edema 782.3 [facility] [address] [id number] [place] [address] 42015- 3106 Oct, Lumbar back pain 724.2 [facility] [id number] [place] [address] 22499- 5763 Oct, Cervicalgia 723.1 ; Lumbar back pain 724.2 and High risk medication use V58.69 [facility] [address], [place] [address]- 5668 Sep, [facility] [address], [place] [address] 2546 Sep, Lumbar strain 847.2 [facility] [address], [place] [address] 254 August, Edema 782.3 and Eustachian tube dysfunction 381.81 [facility] [id number] [address]- 4536 August, [facility] [id number] [place] [address] 30525- 1353 August, Eustachian tube dysfunction 381.81 [facility] [id number] [place] [address] 17531- 7928 Jul, Otalgia 388.70 and Otitis media 382.9 [facility] [address], [place] [address]- 1479 Jul, [facility] [id number] [place] [address] 18453- 1803 Jul, [facility] [address], [place] [address]- 1542 28 Jul, 2014 [facility] [address], [place] [address]- 0810 14 Jul, 2014 [facility] [address], [place] [address]- 8989 13 Jul, 2014 [facility] [address], [place] [address]- 7531 27 Jun, 2014 [facility] [address], [place] [address]- 2299 27 Jun, 2014 [facility] [address], [place] [address]- 4897 16 Jun, 2014 [facility] [place] [facility] [address] [id number] [place] [address]- 3175 May, 2014 [facility] [place] [facility] [address] [id number] [place] [address]- 9663 May, 2014 [facility] [place] [facility] [address] [id number] [place] [address]- 2546 May, 2014 [facility] [place] [facility] [address] [id number] [place] [address]- 0736 May, 2014 [facility] [place] [facility] [address] [id number] [place] [address]- 1870 May, 2014 [facility] [place] [facility] [address] [id number] [place] [address]- 4206 May, 2014 [facility] [place] [facility] [address] [facility] [id number] [place] [address]- 5162 May, 2014 [facility] [place] [facility] [address] [id number] [place] [address]- 1196 May, 2014 [facility] [place] [facility] [address] [facility] [id number] [place] [address]- 1994 May, 2014 [facility] [place] [facility] [address] [facility] [id number] [place] [address]- 7411 May, [facility] [place] [facility] [address] [facility] [id number] [place] [address] Apr, [facility] [place] [facility] [address] [id number] [place] [address] Apr, [facility] [place] [facility] [address] [id number] [place] [address] Apr, [facility] [place] [facility] [address] [id number] [place] [address] Apr, [facility] [place] [facility] [address] [id number] [place] [address] Apr, [facility] [place] [facility] [address] [id number] [place] [address] Apr, [facility] [address] [id number] [place] [address] Apr, [facility] [place] [facility] [address] [id number] [place] [address] Apr, [facility] [place] [facility] [address] [id number] [place] [address] Apr, [facility] [place] [facility] [address] [id number] [place] [address] Apr, [facility] [place] [facility] [address] [id number] [place] [address] Apr, [facility] [place] [facility] [address] [id number] [place] [address] Apr, [facility] [place] [facility] [address] [id number] [place] [address] Apr, [facility] [place] [facility] [address] [id number] [place] [address] Apr, [facility] [place] [facility] [address] [id number] [place] [address] Apr, [facility] [place] [facility] [address] [id number] [place] [address] Mar, [facility] [place] [facility] [address] [id number] [place] [address] Mar, [facility] [place] [facility] [address] [id number] [place] [address] Mar, [facility] [place] [facility] [address] [id number] [place] [address] Mar, [facility] [place] [facility] [address] [id number] [place] [address] Feb, [facility] [place] [facility] [address] [id number] [place] [address] Feb, [facility] [place] [facility] [address] [id number] [place] [address]67 Feb, [facility] [place] [facility] [address] [id number] [place] [address] Feb, [facility] [place] [facility] [address] [id number] [place] [address] Jan, [facility] [place] [facility] [address] [id number] [place] [address] Jan, [facility] [place] [facility] [address] [id number] [place] [address]- 9358 Jan, [facility] [place] [facility] [address] [id number] [place] [address]- 78[address] Jan, [facility] [place] [facility] [address] [id number] [place] [address]- 5428 Jan, [facility] [place] [facility] [address] [id number] [place] [address]- 4669 Jan, [facility] [place] [facility] [address] [id number] [place] [address]- 4[address] Jan, [facility] [place] [facility] [address] [id number] [place] [address]- 5340 Jan, [facility] [place] [facility] [address] [id number] [place] [address]- 2357 29 Dec, 2013 [facility] [place] [facility] [address] [id number] [place] [address]- 3230 29 Dec, 2013 [facility] [place] [facility] [address] [id number] [place] [address]- 6941 04 Dec, 2013 [facility] [place] [facility] [address] [id number] [place] [address] 2546 04 Dec, 2013 [facility] [place] [facility] [address] [id number] [place] [address] 14 Oct, 2013 [facility] [place] [facility] [address] [id number] [place] [address]- 1221 Oct, 2013 [facility] [place] [facility] [address] [id number] [place] [address]- 1566 Oct, 2013 [facility] [place] [facility] [address] [id number] [place] [address]- 7083 Oct, 2013 [facility] [place] [facility] [address] [id number] [place] [address]- 6122 Oct, 2013 [facility] [place] [facility] [address] [id number] [place] [address]- 2974 Oct, 2013 [facility] [place] [facility] [address] [id number] [place] [address]- 7831 Oct, 2013 [facility] [place] [facility] [address] [id number] [place] [address]- 3676 Oct, 2013 [facility] [place] [facility] [address] [id number] [place] [address]- 0351 Sep, [facility] [place] [facility] [address] [id number] [place] [address]- 1353 Sep, [facility] [place] [facility] [address] [id number] [place] [address]- 8188 Sep, [facility] [place] [facility] [address] [id number] [place] [address]- 4537 Sep, [facility] [place] [facility] [address] [id number] [place] [address]- 8325 Sep, [facility] [place] [facility] [address] [id number], [place] [address] 47[address] Sep, [facility] [place] [facility] [address] [id number] [place] [address]- 1970 Sep, [facility] [place] [facility] [address] [id number] [place] [address]- 9229 Sep, [facility] [place] [facility] [address] [id number] [place] [address]- 8039 Sep, [facility] [place] [facility] [address] [id number] [place] [address]- 2376 Sep, [facility] [address] [id number] [place] [address]- 1309 August, [facility] [place] [facility] [address] [id number] [place] [address]- 2168 August, [facility] [address] [id number] [place] [address]- 8511 August, [facility] [place] [facility] [address] [id number] [place] [address]- 0241 August, [facility] [address] [id number] [place] [address]- 0269 August, [facility] [place] [facility] [address] [id number] [place] [address]- 9461 August, [facility] [address] [id number] [place] [address]- 3170 August, [facility] [address] [id number] [place] [address]- 6229 August, [facility] [place] [facility] [address] [id number] [place] [address]- 8402 August, [facility] [address] [id number] [place] [address]- 5766 August, [facility] [place] [facility] [address] [id number] [place] [address]- 8181 August, [facility] [place] [facility] [address] [id number] [place] [address]- 4693 August, [facility] [place] [facility] [address] [id number] [place] [address]- 6146 Jul, [facility] [place] [facility] [address] [id number] [place] [address]- 9718 Jul, [facility] [place] [facility] [address] [id number] [place] [address]- 6699 Jul, [facility] [place] [facility] [address] [id number] [place] [address]- 1725 Jul, [facility] [place] [facility] [address] [id number] [place] [address]- 9933 Jul, [facility] [place] [facility] [address] [id number] [place] [address]- 8695 Jul, [facility] [place] [facility] [address] [id number] [place] [address]- 4084 Jun, [facility] [place] [facility] [address] [id number] [place] [address]- 8276 Jun, [facility] [place] [facility] [address] [id number] [place] [address]- 4162 May, [facility] [place] [facility] [address] [id number] [place] [address]- 0653 May, [facility] [place] [facility] [address] [id number] [place] [address]- 5011 Apr, [facility] [place] [facility] [address] [id number] [place] [address]- 8871 Apr, [facility] [place] [facility] [address] [id number] [place] [address]- 0117 Apr, [facility] [place] [facility] [address] [id number] [place] [address]- 4025 Apr, [facility] [place] [facility] [address] [id number] [place] [address]- 8633 Apr, [facility] [place] [facility] [address] [id number] [place] [address]- 0579 Apr, [facility] [place] [facility] [address] [id number] [place] [address]- 4030 Apr, [facility] [place] [facility] [address] [id number] [place] [address]- 6803 Apr, [facility] [place] [facility] [address] [id number], [place] [address]- 4988 Apr, [facility] [address] [id number] [place] [address]- 6385 Apr, [facility] [place] [facility] [address] [id number] [place] [address]- 8711 Apr, [facility] [place] [facility] [address] [id number] [place] [address]- 1378 Apr, [facility] [place] [facility] [address] [id number] [place] [address]- 1459 Apr, [facility] [place] [facility] [address] [id number] [place] [address]- 4955 Mar, [facility] [place] [facility] [address] [id number] [place] [address]- 9804 Mar, [facility] [place] [facility] [address] [id number] [place] [address]- 2786 Mar, [facility] [place] [facility] [address] [id number] [place] [address]- 2433 Mar, [facility] [place] [facility] [address] [id number] [place] [address]- 2789 Feb, [facility] [place] [facility] [address] [id number] [place] [address]- 9200 Feb, [facility] [place] [facility] [address] [id number], [place] [address]- 6028 Feb, [facility] [place] [facility] [address] [id number], [place] [address]- 6983 Feb, [facility] [place] [facility] [address] [id number] [place] [address]- 4962 14 Jan, 2013 [facility] [place] [facility] [address] [id number] [place] [address]- 6261 14 Jan, 2013 [facility] [place] [facility] [address] [id number], [place] [address]- 2770 11 Jan, 2013 [facility] [place] [facility] [address] [id number] [place] [address]- 5559 Jan, [facility] [place] [facility] [address] [id number] [place] [address]- 7023 Jan, [facility] [place] [facility] [address] [id number] [place] [address]- 4920 Jan, [facility] [place] [facility] [address] [id number] [place] [address]- 0520 Jan, [facility] [place] [facility] [address] [id number] [place] [address]- 4983 Jan, [facility] [place] [facility] [address] [id number] [place] [address]- 1271 Jan, [facility] [place] [facility] [address] [id number] [place] [address]- 1666 26 Dec, 2012 [facility] [place] [facility] [address] [id number] [place] [address]- 0100 16 Dec, 2012 [facility] [place] [facility] [address] [id number] [place] [address]- 0819 16 Dec, 2012 [facility] [place] [facility] [address] [id number] [place] [address]- 3934 13 Dec, 2012 [facility] [place] [facility] [address] [id number] [place] [address]- 6485 17 Nov, 2012 [facility] [place] [facility] [address] [id number] [place] [address]- 0531 17 Nov, 2012 [facility] [place] [facility] [address] [id number] [place] [address]- 8394 14 Nov, 2012 [facility] [place] [facility] [address] [id number] [place] [address]- 4431 05 Nov, 2012 [facility] [place] [facility] [address] [id number] [place] [address]- 3059 Oct, [facility] [place] [facility] [address] [id number] [place] [address]- 1609 Sep, [facility] [address] [id number] [place] [address]- 5457 August, [facility] [address] [id number] [place] [address]- 2532 August, [facility] [address] [id number] [place] [address]- 0493 August, [facility] [address] [id number] [place] [address]- 0209 August, [facility] [address] [id number] [place] [address]- 7375 August, [facility] [address] [id number] [place] [address]- 7787 August, [facility] [address] [id number] [place] [address]- 5164 August, [facility] [address] [id number] [place] [address]- 2708 August, [facility] [address] [id number] [place] [address]- 9144 August, [facility] [address] [id number] [place] [address]- 9098 August, [facility] [address] [id number] [place] [address]- 3217 August, [facility] [place] [facility] [address] [id number] [place] [address]- 0407 August, [facility] [place] [facility] [address] [id number] [place] [address]- 1731 Jul, [facility] [place] [facility] [address] [id number] [place] [address]- 4562 Jul, [facility] [place] [facility] [address] [id number] [place] [address]- 6710 Jul, [facility] [place] [facility] [address] [id number] [place] [address]- 1991 15 Jul, 2012 [facility] [address] [id number] [place] [address]- 0491 Jul, [facility] [place] [facility] [address] [id number] [place] [address]- 0216 Jul, [facility] [address] [id number] [place] [address]- 6711 Jul, [facility] [place] [facility] [address] [id number] [place] [address]- 6538 Jul, [facility] [address] [id number] [place] [address]- 2791 Jul, [facility] [place] [facility] [address] [id number] [place] [address]- 6463 Jul, [facility] [address] [id number] [place] [address]- 7775 Jul, [facility] [address] [id number] [place] [address]- 8505 Jun, [facility] [address] [id number] [place] [address]- 0353 Jun, [facility] [address] [id number] [place] [address]- 4865 Jun, [facility] [place] [facility] [address] [id number] [place] [address]- 9282 Jun, [facility] [place] [facility] [address] [id number] [place] [address]- 8065 May, [facility] [place] [facility] [address] [id number] [place] [address]- 0828 14 May, 2012 [facility] [place] [facility] [address] [id number] [place] [address]- 9796 05 May, 2012 [facility] [place] [facility] [address] [id number] [place] [address]- 6905 04 May, 2012 [facility] [address] [id number] [place] [address]- 9874 May, [facility] [place] [facility] [address] [id number] [place] [address]- 4066 May, [facility] [place] [facility] [address] [id number] [place] [address]- 8237 Apr, [facility] [place] [facility] [address] [id number] [place] [address]- 1626 Apr, [facility] [place] [facility] [address] [id number] [place] [address]- 2394 Apr, [facility] [place] [facility] [address] [id number] [place] [address]- 0913 Apr, [facility] [place] [facility] [address] [id number] [place] [address]- 8600 15 Mar, 2012 [facility] [place] [facility] [address] [id number] [place] [address]- 6262 14 Mar, 2012 [facility] [place] [facility] [address] [id number] [place] [address] 2543 Mar, [facility] [place] [facility] [address] [id number] [place] [address]- 9207 Mar, [facility] [place] [facility] [address] [id number] [place] [address]- 1655 Mar, [facility] [place] [facility] [address] [id number] [place] [address]- 0489 Mar, [facility] [place] [facility] [address] [id number] [place] [address] 2546 Mar, [facility] [place] [facility] [address] [id number] [place] [address]- 3537 Feb, [facility] [place] [facility] [address] [id number] [place] [address]- 0123 Feb, [facility] [place] [facility] [address] [id number] [place] [address]- 2160 Feb, [facility] [place] [facility] [address] [id number] [place] [address]- 1848 Feb, [facility] [place] [facility] [address] [id number] [place] [address]- 3348 Jan, [facility] [place] [facility] [address] [id number] [place] [address]- 9458 Jan, [facility] [place] [facility] [address] [id number] [place] [address]- 4768 Jan, [facility] [place] [facility] [address] [id number] [place] [address]- 3135 Jan, [facility] [place] [facility] [address] [id number] [place] [address]- 6794 Jan, [facility] [place] [facility] [address] [id number] [place] [address]- 4706 Jan, [facility] [place] [facility] [address] [id number] [place] [address]- 3083 Dec, [facility] [place] [facility] [address] [id number] [place] [address]- 4981 Dec, [facility] [place] [facility] [address] [id number] [place] [address]- 4115 Nov, [facility] [place] [facility] [address] [id number] [place] [address]- 2390 Sep, [facility] [place] [facility] [address] [id number] [place] [address]- 1765 August, [facility] [place] [facility] [address] [id number] [place] [address]- 6867 August, [facility] [place] [facility] [address] [id number] [place] [address]- 6404 August, [facility] [place] [facility] [address] [id number] [place] [address]- 9606 August, [facility] [place] [facility] [address] [id number] [place] [address]- 2212 August, [facility] [place] [facility] [address] [id number] [place] [address]- 4662 Jun, [facility] [place] [facility] [address] [id number] [place] [address]- 5401 Jun, [facility] [place] [facility] [address] [id number] [place] [address]- 6336 Apr, [facility] [place] [facility] [address] [id number] [place] [address]- 8666 Apr, [facility] [place] [facility] [address] [id number] [place] [address]- 2545 Mar, [facility] [place] [facility] [address] [id number] [place] [address]- 3291 Feb, [facility] [place] [facility] [address] [id number] [place] [address]- 6581 Feb, [facility] [place] [facility] [address] [id number] [place] [address]- 4868 Feb, [facility] [place] [facility] [address] [id number] [place] [address]- 0905 17 Jan, 2011 [facility] [place] [facility] [address] [id number] [place] [address]- 1864 15 Jan, 2011 [facility] [place] [facility] [address] [id number] [place] [address]- 6283 15 Jan, 2011 [facility] [place] [facility] [address] [id number] [place] [address]- 4010 14 Jan, 2011 [facility] [place] [facility] [address] [id number] [place] [address]- 5174 15 May, 2010 [facility] [place] [facility] [address] [id number] [place] [address]- 0315 04 Mar, 2010 [facility] [place] [facility] [address] [id number] [place] [address]- 2444 Oct, [facility] [address] [id number] [place] [address]- 2546 Sep, [facility] [address] [id number], [place] [address] 2546 Mar, [facility] [address] [id number], [place] [address]- 2546 Jan, [facility] [address] [id number], [place] [address] 2546 Jan, [facility] [address] [id number], [place] [address]- 2546 May, IMMUNIZATIONS No Known Immunizations SOCIAL HISTORY Never Assessed REAS[facility] FOR VISIT [facility] VITAL SIGNS MEDICATIONS Unknown Medications RESULTS Name Result Date Reference Range [facility] 2017-06-01 PROCEDURES Procedure Date Ordered Result Body Site No Charge Jun 01, 2017 INSTRUCTIONS MEDICATIONS ADMINISTERED No Known Medications MEDICAL (GENERAL) HISTORY Type Description Date Medical History hypertension Medical History Colposcopy with loop electrode excision of the cervix was performed 06/2012, mild squamous atypia (no definite dyplasia). Performed at [facility] Dr. Joy. Medical History Acute [...]
--- OUTSIDE RECORDS SUMMARY | 2018-06-10 05:09 | XMS REPORT ---
Author Author SIMA HODGES [facility] Address [address] [place] [address] Care Team Providers Care Architectural Practice Manager Name Role Phone SIMA HODGES Unavailable PROBLEMS Type Condition ICD9-CM Code QCO22-OQ Code Onset Dates Condition Status SNOMED Code Problem Anxiety F41.9 Active 31471224 Problem Abnormal glucose R73.09 Active 448497149 Problem Chronic pain due to trauma G89.21 Active 914087981 Problem Hypokalemia E87.6 Active 09029181 Problem Neck pain M54.2 Active 24280120 Problem Neuroforaminal stenosis of spine M99.89 Active 609233862980 Problem Mixed hyperlipidemia E78.2 Active 88370465 Problem Essential hypertension I10 Active 09656873 ALLERGIES No Information ENCOUNTERS Encounter Location Date Diagnosis [place] [address] [address] Oct, [place] [address] 00851- 4947 Oct, Cystitis without hematuria N30.90 [place] [address] 92545- 5648 Sep, Screening breast examination Z12.39 [place] [address] 31922- 2062 Sep, Dysuria R30.0 and Cystitis without hematuria N30.90 [place] [address] 47158- 7495 14 Sep, 2017 Essential hypertension I10 and Neuroforaminal stenosis of spine M99.89 [place] [address] 78789- 3553 Sep, Abnormal glucose R73.09 [place] [address] [place] [id number] [place] [address] 22906- 1280 August, Lateral epicondylitis, right elbow M77.11 [place] [address] [place] [id number] [place] [address] 78372- 4272 August, Screen for STD (sexually transmitted disease) Z11.3 [place] [address] 76867- 5393 August, Neuroforaminal stenosis of spine M99.89 ; Mixed hyperlipidemia E78.2 ; Elevated fasting glucose R73.01 ; Screening mammogram, encounter for Z12.31 and Encounter for well woman exam without gynecological exam Z00.00 [place] [address] [place] [id number] [place] [address] 62020- 7903 August, Neuroforaminal stenosis of spine M99.89 [place] [address] 21505- 0103 August, Essential hypertension I10 ; Hypokalemia E87.6 and Mixed hyperlipidemia E78.2 [place] [address] [place] [id number] [place] [address] 19664- 3149 Jul, [place] [address] [place] [id number] [place] [address] 68741- 3736 Jul, Neuroforaminal stenosis of spine M99.89 [place] [address] [place] [id number] [place] [address] 71539- 8794 Jul, Lateral epicondylitis, right elbow M77.11 [place] [address] [place] [id number] [place] [address] 70519- 4365 Jul, [place] [address] 44474- 9131 Jun, High ankle sprain of right lower extremity, initial encounter S93.431A [place] [address] [place] [id number] [place] [address] 88404- 9081 Jun, Essential hypertension I10 [place] [address] [place] [id number] [place] [address] 69258- 3001 Jun, [place] [address] 92528- 2525 Jun, [place] [address] [place] [id number] [place] [address] 95496- 6629 Jun, Neuroforaminal stenosis of spine M99.89 [place] [address] 28304- 1631 Jun, Pain of right upper extremity M79.601 and Essential hypertension I10 [address] 81068- 9046 Jun, [place] [address] 91547- 1656 Jun, Dysuria R30.0 ; Acute cystitis with hematuria N30.01 and Screen for STD (sexually transmitted disease) Z11.3 [place] [address] [place] [id number] [place] [address] 35493- 3098 May, Chronic pain due to trauma G89.21 [place] [address] 95936- 1108 May, Essential hypertension I10 [address] 25164- 1987 May, Neuroforaminal stenosis of spine M99.89 [place] [address] [place] [id number] [place] [address] 27324- 7456 Apr, Allergic reaction, initial encounter T78.40XA [address] 53607- 2715 Apr, Low back pain, unspecified back pain laterality, unspecified chronicity, with sciatica presence unspecified M54.5 ; Acute cystitis with hematuria N30.01 ; Neuroforaminal stenosis of spine M99.89 ; Bilateral acute serous otitis media, recurrence not specified H65.03 ; Mixed hyperlipidemia E78.2 ; Essential hypertension I10 ; Immunization counseling Z71.89 and Encounter for immunization Z23 [facility] [address] [place] [id number] [place] [address] 24853- 1131 08 Apr, 2017 Neck pain M54.2 [facility] [address] [place] [id number] [place] [address] 22520- 2909 Mar, Neuroforaminal stenosis of spine M99.89 [facility] [address] 95293- 6309 Mar, Pharyngitis due to other organism J02.8 [place] [address] 17532- 9007 Feb, Neuroforaminal stenosis of spine M99.89 [place] [address] [place] [id number] [place] [address] 00473- 9647 Feb, UTI (urinary tract infection) N39.0 [facility] [address] [place] [id number] [place] [address] 92454- 8220 Feb, Recent urinary tract infection Z87.440 ; Neuroforaminal stenosis of spine M99.89 ; Neck pain M54.2 ; Chronic pain due to trauma G89.21 and Recurrent UTI N39.0 [facility] [address] [place] [id number] [place] [address] 80081- 5844 Feb, [facility] [address] [place] [id number] [place] [address] 85289- 5671 Jan, Neuroforaminal stenosis of spine M99.89 [facility] [address] [place] [id number] [place] [address] 99129- 9866 Dec, Neuroforaminal stenosis of spine M99.89 [facility] [address] [place] [id number] [place] [address] 72517- 3921 18 Dec, 2016 Acute seasonal allergic rhinitis due to pollen J30.1 [facility] [address] [place] [id number] [place] [address] 41048- 0689 Dec, [place] [address] [place] [id number] [place] [address] 41078- 2804 08 Dec, 2016 Acute seasonal allergic rhinitis, unspecified trigger J30.2 ; Allergic conjunctivitis of both eyes H10.13 and Dysfunction of both eustachian tubes H69.83 [place] [address] [place] [id number] [place] [address] 58269- 8117 Dec, [place] [address] 09546- 1323 Dec, Nevus D22.9 [place] [address] 58891- 4696 Nov, Chronic pain due to trauma G89.21 and Neuroforaminal stenosis of spine M99.89 [place] [address] [place] [id number] [place] [address] 01393- 7296 Nov, Neuroforaminal stenosis of spine M99.89 ; Essential hypertension I10 ; Mixed hyperlipidemia E78.2 ; Hypokalemia E87.6 ; Neck pain M54.2 and Nevus D22.9 [place] [address] [place] [id number] [place] [address] 34802- 7157 Oct, Neuroforaminal stenosis of spine M99.89 [place] [address] [place] [id number] [place] [address] 93097- 4741 Sep, Neuroforaminal stenosis of spine M99.89 [place] [address] [place] [id number] [place] [address] 36415- 7104 Sep, [place] [address] [place] [id number] [place] [address] 80004- 5112 August, [place] [address] [place] [id number] [place] [address] 83078- 5289 August, Neck pain M54.2 and Neuroforaminal stenosis of spine M99.89 [place] [address] [place] [id number] [place] [address] 87657- 5998 August, Routine gynecological examination Z01.419 and Screening breast examination Z12.39 [facility] [id number] [place] [address] 73101- 2498 Jul, [facility] [address] [place] [id number] [place] [address] 95537- 8731 Jul, [facility] [address] [place] [id number] [place] [address] 96957- 7857 Jul, Neuroforaminal stenosis of spine M99.89 [facility] [address] [place] [id number] [place] [address] 24227- 9983 Jul, [facility] [address] [place] [id number] [place] [address] 33874- 9251 Jul, 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 [place] [address] [place] [id number] [place] [address] 03166- 7470 Jul, [facility] [address] [place] [id number] [place] [address] 02356- 7300 Jul, [facility] [address] [place] [id number] [place] [address] 12687- 1819 Jun, Neuroforaminal stenosis of spine M99.89 [facility] [address] [place] [id number] [place] [address] 39021- 6258 Jun, Uterine leiomyoma, unspecified location D25.9 and Allergic reaction caused by a drug, initial encounter T78.40XA [facility] [id number] [place] [address] 65894- 1248 Jun, [facility] [address] [place] [id number] [place] [address] 65976- 9570 May, UTI symptoms R39.9 and Pain of right sacroiliac joint M53.3 [facility] [address] [place] [id number] [place] [address] 19601- 9143 May, Neuroforaminal stenosis of spine M99.89 [place] [address] [place] [id number] [place] [address] 45291- 4709 May, [place] [address] [place] [id number] [place] [address] 80677- 5367 May, Acute mucoid otitis media of left ear H65.112 and Acute non- recurrent maxillary sinusitis J01.00 [place] [address] [place] [id number] [place] [address] 18183- 4909 May, Acute bacterial conjunctivitis of both eyes H10.33 ; Left arm pain M79.602 and Hypokalemia E87.6 [place] [address] [place] [id number] [place] [address] 46259- 8478 Apr, [place] [address] [place] [id number] [place] [address] 59212- 4095 Apr, Neuroforaminal stenosis of spine M99.89 ; Neck pain M54.2 ; Chronic pain due to trauma G89.21 ; Mixed hyperlipidemia E78.2 ; Essential hypertension I10 and Hypokalemia E87.6 [place] [address] [place] [id number] [place] [address] 53245- 6606 Mar, Oral candidiasis B37.0 ; Neuroforaminal stenosis of spine M99.89 ; Neck pain M54.2 and Chronic pain due to trauma G89.21 [place] [address] [place] [id number] [place] [address] 36910- 8767 Feb, [place] [address] [place] [id number] [place] [address] 30341- 8846 Feb, [place] [address] [place] [id number] [place] [address] 43372- 1666 Feb, UTI (urinary tract infection) N39.0 [place] [address] [place] [id number] [place] [address] 26890- 4889 Feb, Dysuria R30.0 [place] [address] [place] [id number] [place] [address] 47935- 1404 Feb, Dysuria R30.0 [facility] [address] [place] [id number] [place] [address] 33355- 3533 Feb, Neuroforaminal stenosis of spine M99.89 ; Neck pain M54.2 ; Essential hypertension I10 ; Chronic pain due to trauma G89.21 ; Dysuria R30.0 ; Abnormal MRI, shoulder R93.8 and Acute cystitis without hematuria N30.00 [facility] [address] [place] [id number] [place] [address] 74614- 4543 Jan, [facility] [address] [place] [id number] [place] [address] 32573- 3733 Jan, [facility] [address] [place] [id number] [place] [address] 83174- 0503 Jan, [facility] [address] [place] [id number] [place] [address] 61888- 8059 Jan, Abnormal MRI R93.8 [facility] [address] [place] [id number] [place] [address] 38697- 7214 Dec, [facility] [address] [place] [id number] [place] [address] 61429 -8102 15 Dec, 2015 Acute pain of left shoulder M25.512 [facility] [address] [place] [id number] [place] [address] 73010- 4079 09 Dec, 2015 [facility] [address] [place] [id number] [place] [address] 70476- 6248 08 Dec, 2015 [facility] [address] [place] [id number] [place] [address] 62902- 6552 07 Dec, 2015 Acute pain of left shoulder M25.512 [facility] [address] [place] [id number] [place] [address] 57520- 3932 Nov, [facility] [address] [place] [id number] [place] [address] 39414- 5148 Nov, Neuroforaminal stenosis of spine M99.89 ; Neck pain M54.2 ; Abnormal mammogram R92.8 ; Essential hypertension I10 and Chronic pain due to trauma G89.21 [facility] [address] [id number] [address]- 7751 Nov, [facility] [address] [facility] [id number] [address]- 7420 Oct, Acute stress disorder F43.0 [facility] [address] [facility] [id number] [address]- 3390 Oct, [facility] [address] [id number] [address]- 3234 Oct, [facility] [address] [id number] [address]- 0669 Oct, [facility] [address] [id number] [address]- 8968 Sep, [facility] [address] [id number] [address]- 9055 August, [facility] [address] [id number] [address]- 6948 Jul, Neuroforaminal stenosis of spine M99.89 ; Neck pain M54.2 ; Abnormal mammogram R92.8 and Essential hypertension I10 [facility] [address] [address]- 2744 Jul, [facility] [address] [address]- 5856 Jul, [facility] [address] [id number] [address]- 5718 Jul, Abnormal mammogram R92.8 [facility] [address] [address]- 6043 Jul, [facility] [address] [id number] [address]- 2778 Jul, UTI (urinary tract infection) N39.0 [facility] [address] [address]- 4224 Jul, Dysuria R30.0 [facility] [address] [place] [id number] [place] [address] 13896- 7006 Jun, [facility] [address] [place] [id number] [place] [address] 15111- 6272 Jun, [facility] [address] [place] [id number] [place] [address] 04475- 2217 Jun, Hypokalemia E87.6 and Hematuria R31.9 [place] [address] [place] [id number] [place] [address] 88448- 5182 Jun, Hypokalemia E87.6 [place] [address] [place] [id number] [place] [address] 78545- 4347 Jun, [place] [address] [place] [id number] [place] [address] 50704- 4701 Jun, Hypokalemia E87.6 [place] [id number] [place] [address] 47450- 6298 Jun, Hypokalemia E87.6 [place] [address] [place] [id number] [place] [address] 40781- 1650 Jun, Neuroforaminal stenosis of spine M99.89 ; Hypokalemia E87.6 ; Neck pain M54.2 ; Essential hypertension I10 ; Mixed hyperlipidemia E78.2 and Screening breast examination Z12.39 [place] [address] [address]- 0669 Jun, Dysuria R30.0 ; UTI (urinary tract infection) N39.0 and Hematuria R31.9 [place] [id number] [place] [address] 33263- 7528 May, [place] [address] [address]- 4805 May, High risk sexual behavior Z72.51 ; Hypokalemia E87.6 ; Neuroforaminal stenosis of spine M99.89 ; Neck pain M54.2 ; Essential hypertension I10 ; Mixed hyperlipidemia E78.2 ; STD exposure Z20.2 and Concern about STD in female without diagnosis Z71.1 [facility] [address] [place] [id number] [place] [address] 32031- 5453 16 May, 2015 Neuroforaminal stenosis of spine M99.89 ; Neck pain M54.2 ; Hypokalemia E87.6 ; Essential hypertension I10 and Mixed hyperlipidemia E78.2 [place] [address] [place] [id number] [place] [address] 29446- 4175 May, [facility] [address] 94388 -6620 08 May, 2015 High risk sexual behavior Z72.51 ; STD exposure Z20.2 and Concern about STD in female without diagnosis Z71.1 [place] [address] [place] [id number] [place] [address] 04570- 8082 May, [place] [address] 95540- 5916 Apr, Neuroforaminal stenosis of spine M99.89 ; Mixed hyperlipidemia E78.2 ; Essential hypertension I10 and Hypokalemia E87.6 [place] [address] [place] [id number] [place] [address] 91401- 1968 Mar, [place] [address] [place] [id number] [place] [address] 86083- 2994 Mar, Hypokalemia E87.6 [place] [address] [place] [id number] [place] [address] 26771- 4503 Mar, Neuroforaminal stenosis of spine M99.89 ; Mixed hyperlipidemia E78.2 ; Neck pain M54.2 ; Essential hypertension I10 ; Abnormal fasting glucose R73.09 ; Hypokalemia E87.6 and Constipation K59.00 [place] [address] 95259- 0615 Feb, Neuroforaminal stenosis of spine M99.89 ; Mixed hyperlipidemia E78.2 ; Neck pain M54.2 ; Essential hypertension I10 ; Abnormal fasting glucose R73.09 ; Hypokalemia E87.6 and Constipation K59.00 [place] [address] [place] [id number] [place] [address] 32050- 8520 Feb, Elevated fasting blood sugar R73.01 [place] [address] 66463- 4140 Feb, Elevated fasting blood sugar R73.01 [place] [address] 83742- 0979 Feb, Hair loss L65.9 [place] [address] 46006- 7301 Feb, Sinusitis J32.9 ; Essential hypertension I10 and Hair loss L65.9 [place] [address] 61512- 2129 Jan, [place] [address] 26160- 0460 Jan, Essential hypertension I10 ; Neuroforaminal stenosis of spine M99.89 ; Neck pain M54.2 ; Mixed hyperlipidemia E78.2 and Anxiety F41.9 [place] [address] [place] [id number] [place] [address] 26463- 5798 Jan, [place] [address] 37890- 0156 Jan, Mixed hyperlipidemia E78.2 ; Essential (primary) hypertension I10 ; Strain of muscle, fascia and tendon at neck level, subsequent encounter S16.1XXD and Tension-type headache, unspecified, not intractable G44.209 [place] [address] [place] [id number] [place] [address] 13310- 0713 Dec, Lumbar back pain 724.2 and Neuroforaminal stenosis of spine 724.00 [place] [id number] [place] [address] 81698- 1838 Nov, [facility] [address] [id number] [place] [address] 62322- 2104 Nov, Lumbar back pain 724.2 and Neuroforaminal stenosis of spine 724.00 [facility] [address] [id number] [place] [address] 43367- 5911 Nov, Edema 782.3 ; Lumbar back pain 724.2 ; Essential hypertension, benign 401.1 ; Hyperlipemia 272.4 ; Neuroforaminal stenosis of spine 724.00 and Post-concussion headache 339.20 [facility] [address] [id number] [place] [address] 97117- 1374 Nov, [facility] [address] [place] [id number] [place] [address] 69744- 6581 Nov, [facility] [address] [id number] [place] [address] 03797- 2020 Oct, Essential hypertension, benign 401.1 [facility] [address] [id number] [place] [address] 92055- 8238 Oct, Edema 782.3 ; Lumbar back pain 724.2 ; Essential hypertension, benign 401.1 ; Hyperlipemia 272.4 ; Neuroforaminal stenosis of spine 724.00 and Post-concussion headache 339.20 [facility] [id number] [place] [address] 91039- 8646 Oct, [facility] [id number] [place] [address] 34721- 2391 Oct, Edema 782.3 [facility] [address] [id number] [place] [address] 76871- 6336 Oct, Lumbar back pain 724.2 [facility] [id number] [place] [address] 49722- 6668 Oct, Cervicalgia 723.1 ; Lumbar back pain 724.2 and High risk medication use V58.69 [facility] [address], [place] [address]- 4834 Sep, [facility] [address], [place] [address] 2546 Sep, Lumbar strain 847.2 [facility] [address], [place] [address] 2543 August, Edema 782.3 and Eustachian tube dysfunction 381.81 [facility] [id number], [place] [address]- 7086 August, [facility] [id number] [place] [address] 37446- 9405 August, Eustachian tube dysfunction 381.81 [facility] [id number] [place] [address] 94871- 3169 Jul, Otalgia 388.70 and Otitis media 382.9 [facility] [address], [place] [address]- 2961 Jul, [facility] [id number] [place] [id number]- [address] Jul, [facility] [id number] [address] 28 Jul, 2014 [facility] [id number] [address] 14 Jul, 2014 [facility] [id number] [address] 13 Jul, 2014 [facility] [id number] [address] 27 Jun, 2014 [facility] [id number] [place] [address] 27 Jun, 2014 [facility] [id number] [address] 16 Jun, 2014 [facility] [place] [facility] [address] [id number] [place] [address] May, 2014 [facility] [place] [facility] [address] [id number] [place] [address] May, 2014 [facility] [place] [facility] [address] [id number] [place] [address] May, 2014 [facility] [place] [facility] [address] [id number] [place] [address]64 May, 2014 [facility] [place] [facility] [address] [id number] [place] [address] May, 2014 [facility] [place] [facility] [address] [id number] [place] [address]36 May, 2014 [facility] [place] [facility] [address] [facility] [id number] [place] [address] May, 2014 [facility] [place] [facility] [address] [id number] [place] [address]- [address]148 May, 2014 [facility] [place] [facility] [address] [facility] [id number] [place] [address]- 2772 May, 2014 [facility] [place] [facility] [address] [facility] [id number] [place] [address]- 9874 May, [facility] [place] [facility] [address] [facility] [id number] [place] [address]- [address]498 Apr, [facility] [place] [facility] [address] [id number] [place] [address] Apr, [facility] [place] [facility] [address] [id number] [place] [address] Apr, [facility] [place] [facility] [address] [id number] [place] [address] Apr, [facility] [place] [facility] [address] [facility] [id number] [place] [address]- 1214 Apr, [facility] [place] [facility] [address] [id number] [place] [address] 4086 Apr, [facility] [address] [id number] [place] [address]163 Apr, [facility] [place] [facility] [address] [id number] [place] [address] Apr, [facility] [place] [facility] [address] [id number] [place] [place] [address] Apr, [facility] [place] [facility] [address] [id number] [place] [address] Apr, [facility] [place] [facility] [address] [id number] [place] [address]- 2469 Apr, [facility] [place] [facility] [address] [id number] [place] [address] 9446 Apr, [facility] [place] [facility] [address] [id number] [place] [address]- 1750 Apr, [facility] [place] [facility] [address] [id number] [place] [address] 6626 Apr, [facility] [place] [facility] [address] [id number] [place] [address]- 3035 Apr, [facility] [place] [facility] [address] [id number] [place] [address] 9[address] Mar, [facility] [place] [facility] [address] [id number] [place] [address]- 2389 Mar, [facility] [place] [facility] [address] [id number] [place] [address]- 0495 Mar, [facility] [place] [facility] [address] [id number] [place] [address]- 4462 Mar, [facility] [place] [facility] [address] [id number] [place] [address]- 2246 Feb, [facility] [place] [facility] [address] [id number] [place] [address]- 5669 Feb, [facility] [place] [facility] [address] [id number] [place] [address]- 3296 Feb, [facility] [place] [facility] [address] [id number] [place] [address] Feb, [facility] [place] [facility] [address] [id number] [place] [address] Jan, [facility] [place] [facility] [address] [id number] [place] [address]- 9308 Jan, [facility] [place] [facility] [address] [id number] [place] [address]- 1904 Jan, [facility] [place] [facility] [address] [id number] [place] [address]- 3140 Jan, [facility] [place] [facility] [address] [id number] [place] [address]- 2675 Jan, [facility] [place] [facility] [address] [id number] [place] [address]- 7176 Jan, [facility] [place] [facility] [address] [id number] [place] [address]- 7023 Jan, [facility] [place] [facility] [address] [id number] [place] [address]- 5542 Jan, [facility] [place] [facility] [address] [id number] [place] [address]- 3257 29 Dec, 2013 [facility] [place] [facility] [address] [id number] [place] [address]- 5050 29 Dec, 2013 [facility] [place] [facility] [address] [id number] [place] [address]- 1641 04 Dec, 2013 [facility] [place] [facility] [address] [id number] [place] [address] 2546 04 Dec, 2013 [facility] [place] [facility] [address] [id number] [place] [address]16 14 Oct, 2013 [facility] [place] [facility] [address] [id number] [place] [address]- 7433 Oct, 2013 [facility] [place] [facility] [address] [id number] [place] [address]- 5869 Oct, 2013 [facility] [place] [facility] [address] [id number] [place] [address]- 1659 Oct, 2013 [facility] [place] [facility] [address] [id number] [place] [address]- 3661 Oct, 2013 [facility] [place] [facility] [address] [id number] [place] [address]- 2477 Oct, 2013 [facility] [place] [facility] [address] [id number] [place] [address]- 1537 Oct, 2013 [facility] [place] [facility] [address] [id number] [place] [address]- 4507 Oct, 2013 [facility] [place] [facility] [address] [id number] [place] [address]- 7277 Sep, [facility] [place] [facility] [address] [id number] [place] [address]- 7836 Sep, [facility] [place] [facility] [address] [id number] [place] [address]- 8024 Sep, [facility] [place] [facility] [address] [id number] [place] [address]- 0079 Sep, [facility] [place] [facility] [address] [id number] [place] [address]- 2723 Sep, [facility] [place] [facility] [address] [id number], [place] [address]- 6128 Sep, [facility] [place] [facility] [address] [id number] [place] [address]- 3678 Sep, [facility] [place] [facility] [address] [id number] [place] [address]- 4620 Sep, [facility] [place] [facility] [address] [id number] [place] [address]- 3187 Sep, [facility] [place] [facility] [address] [id number] [place] [address]- 0987 Sep, [facility] [address] [id number] [place] [address]- 7463 August, [facility] [place] [facility] [address] [id number] [place] [address]- 8292 August, [facility] [address] [id number] [place] [address]- 9047 August, [facility] [place] [facility] [address] [id number] [place] [address]- 8140 August, [facility] [address] [id number] [place] [address]- 2035 August, [facility] [place] [facility] [address] [id number] [place] [address]- 8861 August, [facility] [address] [id number] [place] [address]- 6074 August, [facility] [address] [id number] [place] [address]- 0101 August, [facility] [place] [facility] [address] [id number] [place] [address]- 8942 August, [facility] [address] [id number] [place] [address]- 7915 August, [facility] [place] [facility] [address] [id number] [place] [address]- 3418 August, [facility] [place] [facility] [address] [id number] [place] [address]- 9333 August, [facility] [place] [facility] [address] [id number] [place] [address]- 9984 Jul, [facility] [place] [facility] [address] [id number] [place] [address]- 5130 Jul, [facility] [place] [facility] [address] [id number] [place] [address]- 3010 Jul, [facility] [place] [facility] [address] [id number] [place] [address]- 8559 Jul, [facility] [place] [facility] [address] [id number] [place] [address]- 6095 Jul, [facility] [place] [facility] [address] [id number] [place] [address]- 4614 Jul, [facility] [place] [facility] [address] [id number] [place] [address]- 5099 Jun, [facility] [place] [facility] [address] [id number] [place] [address]- 1355 Jun, [facility] [place] [facility] [address] [id number] [place] [address]- 0086 May, [facility] [place] [facility] [address] [id number] [place] [address]- 9236 May, [facility] [place] [facility] [address] [id number] [place] [address]- 2346 Apr, [facility] [place] [facility] [address] [id number] [place] [address]- 6661 Apr, [facility] [place] [facility] [address] [id number] [place] [address]- 5671 Apr, [facility] [place] [facility] [address] [id number] [place] [address]- 3115 Apr, [facility] [place] [facility] [address] [id number] [place] [address]- 6197 Apr, [facility] [place] [facility] [address] [id number] [place] [address]- 3883 Apr, [facility] [place] [facility] [address] [id number] [place] [address]- 8777 Apr, [facility] [place] [facility] [address] [id number] [place] [address]- 3947 Apr, [facility] [place] [facility] [address] [id number], [place] [address]- 5372 Apr, [facility] [address] [id number] [place] [address]- 5291 Apr, [facility] [place] [facility] [address] [id number] [place] [address]- 6171 Apr, [facility] [place] [facility] [address] [facility] [id number] [place] [address]- 0128 Apr, [facility] [place] [facility] [address] [id number] [place] [address]- 8169 Apr, [facility] [place] [facility] [address] [id number] [place] [address]- 1098 Mar, [facility] [place] [facility] [address] [id number] [place] [address]- 2702 Mar, [facility] [place] [facility] [address] [facility] [id number] [place] [address]- 7288 Mar, [facility] [place] [facility] [address] [id number] [place] [address]- 4946 Mar, [facility] [place] [facility] [address] [facility] [id number] [place] [address]- 5652 Feb, [facility] [place] [facility] [address] [facility] [id number] [place] [address]- 8556 Feb, [facility] [place] [facility] [address] [id number], [place] [address]- 4942 Feb, [facility] [place] [facility] [address] [id number], [place] [address]- 4194 Feb, [facility] [place] [facility] [address] [id number] [place] [address]- 2859 14 Jan, 2013 [facility] [place] [facility] [address] [id number] [place] [address]- 8912 14 Jan, 2013 [facility] [place] [facility] [address] [facility] [id number], [place] [address]- 4484 11 Jan, 2013 [facility] [place] [facility] [address] [id number] [place] [address]- 7056 Jan, [facility] [place] [facility] [address] [id number] [place] [address]- 5745 Jan, [facility] [place] [facility] [address] [id number] [place] [address]- 5712 Jan, [facility] [place] [facility] [address] [id number] [place] [address]- 2320 Jan, [facility] [place] [facility] [address] [id number] [place] [address]- 1314 Jan, [facility] [place] [facility] [address] [id number] [place] [address]- 8610 Jan, [facility] [place] [facility] [address] [id number] [place] [address]- 4463 26 Dec, 2012 [facility] [place] [facility] [address] [id number] [place] [address]- 7930 16 Dec, 2012 [facility] [place] [facility] [address] [id number] [place] [address]- 7994 16 Dec, 2012 [facility] [place] [facility] [address] [id number] [place] [address]- 2881 13 Dec, 2012 [facility] [place] [facility] [address] [id number] [place] [address]- 7095 17 Nov, 2012 [facility] [place] [facility] [address] [id number] [place] [address]- 4277 17 Nov, 2012 [facility] [place] [facility] [address] [id number] [place] [address]- 2252 14 Nov, 2012 [facility] [place] [facility] [address] [id number] [place] [address]- 5912 05 Nov, 2012 [facility] [place] [facility] [address] [id number] [place] [address]- 4725 Oct, [facility] [place] [facility] [address] [id number] [place] [address]- 8220 Sep, [facility] [address] [id number] [place] [address]- 7272 August, [facility] [address] [id number] [place] [address]- 7100 August, [facility] [address] [id number] [place] [address]- 0266 August, [facility] [address] [id number] [place] [address]- 2650 August, [facility] [address] [id number] [place] [address]- 3381 August, [facility] [address] [id number] [place] [address]- 7344 August, [facility] [address] [id number] [place] [address]- 1945 August, [facility] [address] [id number] [place] [address]- 3649 August, [facility] [address] [id number] [place] [address]- 1383 August, [facility] [address] [id number] [place] [address]- 6580 August, [facility] [address] [id number] [place] [address]- 4327 August, [facility] [place] [facility] [address] [id number] [place] [address]- 7006 August, [facility] [place] [facility] [address] [id number] [place] [address]- 2378 Jul, [facility] [place] [facility] [address] [id number] [place] [address]- 1182 Jul, [facility] [place] [facility] [address] [id number] [place] [address]- 3644 Jul, [facility] [place] [facility] [address] [id number] [place] [address]- 5238 15 Jul, 2012 [facility] [address] [id number] [place] [address]- 3505 Jul, [facility] [place] [facility] [address] [id number] [place] [address]- 4875 Jul, [facility] [address] [id number] [place] [address]- 9137 Jul, [facility] [place] [facility] [address] [id number] [place] [address]- 7765 Jul, [facility] [address] [id number] [place] [address]- 8234 Jul, [facility] [place] [facility] [address] [id number] [place] [address]- 2479 Jul, [facility] [address] [id number] [place] [address]- 5837 Jul, [facility] [address] [id number] [place] [address]- 1134 Jun, [facility] [address] [id number] [place] [address]- 3959 Jun, [facility] [address] [id number] [place] [address]- 6015 Jun, [facility] [place] [facility] [address] [id number] [place] [address]- 4959 Jun, [facility] [place] [facility] [address] [id number] [place] [address]- 9639 May, [facility] [place] [facility] [address] [id number] [place] [address]- 7813 14 May, 2012 [facility] [place] [facility] [address] [id number] [place] [address]- 0126 05 May, 2012 [facility] [place] [facility] [address] [id number] [place] [address]- 1630 04 May, 2012 [facility] [address] [id number] [place] [address]- 8403 May, [facility] [place] [facility] [address] [id number] [place] [address]- 1086 May, [facility] [place] [facility] [address] [id number] [place] [address]- 0175 Apr, [facility] [place] [facility] [address] [id number] [place] [address]- 4866 Apr, [facility] [place] [facility] [address] [id number] [place] [address]- 3356 Apr, [facility] [place] [facility] [address] [id number] [place] [address]- 6137 Apr, [facility] [place] [facility] [address] [id number] [place] [address]- 0157 15 Mar, 2012 [facility] [place] [facility] [address] [id number] [place] [address]- 6988 14 Mar, 2012 [facility] [place] [facility] [address] [id number] [place] [address] 2547 Mar, [facility] [place] [facility] [address] [id number] [place] [address]- 8148 Mar, [facility] [place] [facility] [address] [id number] [place] [address]- 7459 Mar, [facility] [place] [facility] [address] [id number] [place] [address]- 8755 Mar, [facility] [place] [facility] [address] [id number] [place] [address] 2546 Mar, [facility] [place] [facility] [address] [id number] [place] [address]- 9170 Feb, [facility] [place] [facility] [address] [id number] [place] [address]- 3729 Feb, [facility] [place] [facility] [address] [id number] [place] [address]- 4387 Feb, [facility] [place] [facility] [address] [id number] [place] [address]- 3869 Feb, [facility] [place] [facility] [address] [id number] [place] [address]- 0670 Jan, [facility] [place] [facility] [address] [id number] [place] [address]- 4215 Jan, [facility] [place] [facility] [address] [id number] [place] [address]- 6882 Jan, [facility] [place] [facility] [address] [id number] [place] [address]- 3790 Jan, [facility] [place] [facility] [address] [id number] [place] [address]- 6444 Jan, [facility] [place] [facility] [address] [id number] [place] [address]- 4940 Jan, [facility] [place] [facility] [address] [id number] [place] [address]- 8649 Dec, [facility] [place] [facility] [address] [id number] [place] [address]- 0305 Dec, [facility] [place] [facility] [address] [id number] [place] [address]- 8065 Nov, [facility] [place] [facility] [address] [id number] [place] [address]- 5939 Sep, [facility] [place] [facility] [address] [id number] [place] [address]- 3021 August, [facility] [place] [facility] [address] [id number] [place] [address]- 3778 August, [facility] [place] [facility] [address] [id number] [place] [address]- 1347 August, [facility] [place] [facility] [address] [id number] [place] [address]- 0046 August, [facility] [place] [facility] [address] [id number] [place] [address]- 9000 August, [facility] [place] [facility] [address] [id number] [place] [address]- 1632 Jun, [facility] [place] [facility] [address] [id number] [place] [address]- 4864 Jun, [facility] [place] [facility] [address] [id number] [place] [address]- 6108 Apr, [facility] [place] [facility] [address] [id number] [place] [address]- 0681 Apr, [facility] [place] [facility] [address] [id number] [place] [address]- 9936 Mar, [facility] [place] [facility] [address] [id number] [place] [address]- 3350 Feb, [facility] [place] [facility] [address] [id number] [place] [address]- 1108 Feb, [facility] [place] [facility] [address] [id number] [place] [address]- 3332 Feb, [facility] [place] [facility] [address] [id number] [place] [address]- 5880 17 Jan, 2011 [facility] [place] [facility] [address] [id number] [place] [address]- 0004 15 Jan, 2011 [facility] [place] [facility] [address] [id number] [place] [address]- 3148 15 Jan, 2011 [facility] [place] [facility] [address] [id number] [place] [address]- 3009 14 Jan, 2011 [facility] [place] [facility] [address] [id number] [place] [address]- 1163 15 May, 2010 [facility] [place] [facility] [address] [id number] [place] [address]- 0854 04 Mar, 2010 [facility] [place] [facility] [address] [id number] [place] [address]- 8089 Oct, [facility] [address] [facility] [id number] [place] [address]- 2546 Sep, [facility] [address] [id number] [address]- 2546 Mar, [facility] [address] [facility] [id number], [place] [address]- 2546 Jan, [facility] [address] [id number] [address]- 2546 Jan, [facility] [address] [facility] [id number], [place] [address] 2546 May, IMMUNIZATIONS No Known Immunizations SOCIAL HISTORY Never Assessed REASON FOR VISIT Controlled Med Refill PLAN OF CARE VITAL SIGNS MEDICATIONS Medication Instructions Dosage Frequency Start Date End Date Duration Status Hydrocodone-Acetaminophen 5-325 MG Orally 3 -4 times a day prn. must last 4 weeks 1 tablet as needed May, Active RESULTS No Results PROCEDURES No Known procedures INSTRUCTIONS MEDICATIONS ADMINISTERED No Known Medications MEDICAL (GENERAL) HISTORY Type Description Date Medical History hypertension Medical History Colposcopy with loop electrode excision of the cervix was performed 06/2012, mild squamous atypia (no definite dyplasia). Performed at [facility] Dr. Joy. Medical History Acute [...]
--- OUTSIDE RECORDS SUMMARY | 2018-06-10 05:10 | XMS REPORT ---
Author Author SIMA HODGES [facility] Address [address] [place] [address] Care Team Providers Care Screen Tender Helper Name Role Phone SIMA HODGES Unavailable PROBLEMS Type Condition ICD9-CM Code ZMW06-AY Code Onset Dates Condition Status SNOMED Code Problem Anxiety F41.9 Active 13192999 Problem Abnormal glucose R73.09 Active 326734911 Problem Chronic pain due to trauma G89.21 Active 133300638 Problem Hypokalemia E87.6 Active 04648805 Problem Neck pain M54.2 Active 18048565 Problem Neuroforaminal stenosis of spine M99.89 Active 091614875440 Problem Mixed hyperlipidemia E78.2 Active 36192533 Problem Essential hypertension I10 Active 12269453 ALLERGIES No Information ENCOUNTERS Encounter Location Date Diagnosis [facility] [id number] [place] [address] 19139- 7039 Oct, [facility] [id number] [place] [address] 47647- 8859 Oct, [facility] [id number] [place] [address] 19157- 6665 Oct, [facility] [id number] [place] [address] 09056- 1377 Oct, Neuroforaminal stenosis of spine M99.89 [facility] [id number] [place] [address] 17102- 3681 Oct, Visit for TB skin test Z11.1 [facility] [id number] [place] [address] 59441- 7427 Oct, Cystitis without hematuria N30.90 [facility] [id number] [place] [address] 51921- 7371 28 Sep, 2017 Screening breast examination Z12.39 [facility] [id number] [place] [address] 32543- 4900 26 Sep, 2017 Dysuria R30.0 and Cystitis without hematuria N30.90 [facility] [id number] [place] [address] 36494- 1014 14 Sep, 2017 Essential hypertension I10 and Neuroforaminal stenosis of spine M99.89 [facility] [address] 93983- 9822 04 Sep, 2017 Abnormal glucose R73.09 [facility] [address] 92781- 1659 August, Lateral epicondylitis, right elbow M77.11 [facility] [address] 62980- 6260 August, Screen for STD (sexually transmitted disease) Z11.3 [facility] [address] 06842- 3551 August, Neuroforaminal stenosis of spine M99.89 ; Mixed hyperlipidemia E78.2 ; Elevated fasting glucose R73.01 ; Screening mammogram, encounter for Z12.31 and Encounter for well woman exam without gynecological exam Z00.00 [facility] [id number] [place] [address] 71361- 8106 August, Neuroforaminal stenosis of spine M99.89 [facility] [id number] [place] [address] 27781- 6353 August, Essential hypertension I10 ; Hypokalemia E87.6 and Mixed hyperlipidemia E78.2 [facility] [id number] [place] [address] 37232- 1028 Jul, [facility] [id number] [place] [address] 46981- 7191 Jul, Neuroforaminal stenosis of spine M99.89 [facility] [address] [place] [address]- 0117 Jul, Lateral epicondylitis, right elbow M77.11 [facility] [id number] [place] [address] 38916- 5396 Jul, [facility] [id number] [place] [address] 32630- 3955 Jun, High ankle sprain of right lower extremity, initial encounter S93.431A [facility] [facility] [address] 38998- 9323 Jun, Essential hypertension I10 [facility] [address] 82861- 7863 Jun, [facility] [id number] [place] [address] 34718- 8381 Jun, [facility] [address] 84143- 9205 Jun, Neuroforaminal stenosis of spine M99.89 [facility] [id number] [place] [address] 54951- 4669 Jun, Pain of right upper extremity M79.601 and Essential hypertension I10 [facility] [id number] [place] [address] 92045- 2697 Jun, [facility] [id number] [place] [address] 42829- 1896 Jun, Dysuria R30.0 ; Acute cystitis with hematuria N30.01 and Screen for STD (sexually transmitted disease) Z11.3 [facility] [id number] [place] [address] 13959- 3790 May, Chronic pain due to trauma G89.21 [facility] [id number] [place] [address] 06252- 3732 May, Essential hypertension I10 [facility] [address] 84220- 9329 May, Neuroforaminal stenosis of spine M99.89 [facility] [id number] [place] [address] 72709- 6395 Apr, Allergic reaction, initial encounter T78.40XA [facility] [id number] [place] [address] 48473- 1664 Apr, Low back pain, unspecified back pain laterality, unspecified chronicity, with sciatica presence unspecified M54.5 ; Acute cystitis with hematuria N30.01 ; Neuroforaminal stenosis of spine M99.89 ; Bilateral acute serous otitis media, recurrence not specified H65.03 ; Mixed hyperlipidemia E78.2 ; Essential hypertension I10 ; Immunization counseling Z71.89 and Encounter for immunization Z23 [facility] [id number] [place] [address] 60814- 3289 Apr, Neck pain M54.2 [facility] [address] 84041- 6977 Mar, Neuroforaminal stenosis of spine M99.89 [facility] [id number] [place] [address] 93361- 4119 Mar, Pharyngitis due to other organism J02.8 [facility] [id number] [place] [address] 54316- 0668 Feb, Neuroforaminal stenosis of spine M99.89 [facility] [id number] [place] [address] 94167- 9524 08 Feb, 2017 UTI (urinary tract infection) N39.0 [facility] [id number] [place] [address] 58240- 8045 07 Feb, 2017 Recent urinary tract infection Z87.440 ; Neuroforaminal stenosis of spine M99.89 ; Neck pain M54.2 ; Chronic pain due to trauma G89.21 and Recurrent UTI N39.0 [facility] [id number] [place] [address] 40547- 6986 Feb, [facility] [id number] [place] [address] 16589- 9324 Jan, Neuroforaminal stenosis of spine M99.89 [facility] [address] 48920- 4255 Dec, Neuroforaminal stenosis of spine M99.89 [facility] [id number] [place] [address] 15188- 5114 18 Dec, 2016 Acute seasonal allergic rhinitis due to pollen J30.1 [facility] [id number] [place] [address] 74817- 4185 08 Dec, 2016 [facility] [address] 12562- 9439 08 Dec, 2016 Acute seasonal allergic rhinitis, unspecified trigger J30.2 ; Allergic conjunctivitis of both eyes H10.13 and Dysfunction of both eustachian tubes H69.83 [facility] [address] 65141- 8532 Dec, [facility] [address] 40931- 8248 Dec, Nevus D22.9 [facility] [address] 02660- 7834 Nov, Chronic pain due to trauma G89.21 and Neuroforaminal stenosis of spine M99.89 [facility] [id number] [place] [address] 68189- 5884 Nov, Neuroforaminal stenosis of spine M99.89 ; Essential hypertension I10 ; Mixed hyperlipidemia E78.2 ; Hypokalemia E87.6 ; Neck pain M54.2 and Nevus D22.9 [facility] [id number] [place] [address] 30549- 6166 Oct, Neuroforaminal stenosis of spine M99.89 [facility] [id number] [place] [address] 10071- 2716 Sep, Neuroforaminal stenosis of spine M99.89 [facility] [address] [id number] [address]- 4868 Sep, [facility] [address] [facility] [id number] [place] [address] 36724- 1756 August, [facility] [address] [facility] [id number] [place] [address] 82838- 4812 August, Neck pain M54.2 and Neuroforaminal stenosis of spine M99.89 [facility] [address] [id number], [place] [address]- 4060 August, Routine gynecological examination Z01.419 and Screening breast examination Z12.39 [facility] [address] [facility] [id number] [place] [address] 57705- 8695 Jul, [facility] [id number] [place] [address] 98554- 0608 Jul, [facility] [address] [place] [address] 87375- 7287 Jul, Neuroforaminal stenosis of spine M99.89 [facility] [address] [facility] [id number] [place] [address] 56365- 7115 Jul, [facility] [address] [facility] [id number] [place] [address] 77108- 9125 Jul, 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 [facility] [address] [facility] [id number] [place] [address] 30131 2542 Jul, [facility] [address] [facility] [id number], [place] [address]- 2541 Jul, [facility] [address] [facility] [id number] [place] [address] 40925- 0061 Jun, Neuroforaminal stenosis of spine M99.89 [facility] [address] [facility] [id number], [place] [address]- 2546 Jun, Uterine leiomyoma, unspecified location D25.9 and Allergic reaction caused by a drug, initial encounter T78.40XA [facility] [id number] [place] [address] 49874- 8334 Jun, [facility] [address] 93710- 9050 May, UTI symptoms R39.9 and Pain of right sacroiliac joint M53.3 [facility] [address] 75566- 4306 May, Neuroforaminal stenosis of spine M99.89 [facility] [address] 63426- 5267 May, [facility] [address] 75457- 8151 May, Acute mucoid otitis media of left ear H65.112 and Acute non- recurrent maxillary sinusitis J01.00 [place] [address] 79396- 3796 May, Acute bacterial conjunctivitis of both eyes H10.33 ; Left arm pain M79.602 and Hypokalemia E87.6 [facility] [id number] [place] [address] 89632- 6204 Apr, [facility] [id number] [place] [address] 14872- 4415 Apr, Neuroforaminal stenosis of spine M99.89 ; Neck pain M54.2 ; Chronic pain due to trauma G89.21 ; Mixed hyperlipidemia E78.2 ; Essential hypertension I10 and Hypokalemia E87.6 [place] [address] 20941- 1772 Mar, Oral candidiasis B37.0 ; Neuroforaminal stenosis of spine M99.89 ; Neck pain M54.2 and Chronic pain due to trauma G89.21 [facility] [address] 38927- 3887 Feb, [facility] [address], [place] [address]- 7483 Feb, [facility] [id number] [place] [address] 40716- 1353 Feb, UTI (urinary tract infection) N39.0 [facility] [address] [place] [address] 78060- 4343 Feb, Dysuria R30.0 [facility] [id number] [place] [address] 04611- 1181 Feb, Dysuria R30.0 [facility] [id number] [place] [address] 71511- 5303 Feb, Neuroforaminal stenosis of spine M99.89 ; Neck pain M54.2 ; Essential hypertension I10 ; Chronic pain due to trauma G89.21 ; Dysuria R30.0 ; Abnormal MRI, shoulder R93.8 and Acute cystitis without hematuria N30.00 [facility] [address] [place] [address] 45724- 1105 Jan, [facility] [id number] [place] [address] 26317- 1270 Jan, [facility] [address] [place] [address] 80666- 6243 Jan, [facility] [id number] [place] [address] 24775- 1356 Jan, Abnormal MRI R93.8 [facility] [address] [place] [address] 61412- 0980 Dec, [facility] [address] [place] [address] 96598 -4904 Dec, Acute pain of left shoulder M25.512 [facility] [address] [place] [address] 37455- 6327 Dec, [facility] [id number] [address]- 7654 08 Dec, 2015 [facility] [address] [place] [address] 15998- 3175 07 Dec, 2015 Acute pain of left shoulder M25.512 [facility] [address], [place] [address]- 8375 Nov, [facility] [id number] [place] [address] 19289- 9262 Nov, Neuroforaminal stenosis of spine M99.89 ; Neck pain M54.2 ; Abnormal mammogram R92.8 ; Essential hypertension I10 and Chronic pain due to trauma G89.21 [facility] [id number] [place] [address] 50771- 2887 Nov, [facility] [id number] [place] [address] 89112- 2938 Oct, Acute stress disorder F43.0 [facility] [id number] [address]- 1141 Oct, [facility] [id number] [place] [address] 18899- 9915 Oct, [facility] [address], [place] [address]- 2199 Oct, [facility] [address], [place] [address]- 9031 Sep, [facility] [address], [place] [address]- 3828 August, [facility] [id number] [place] [address] 07366- 7943 Jul, Neuroforaminal stenosis of spine M99.89 ; Neck pain M54.2 ; Abnormal mammogram R92.8 and Essential hypertension I10 [facility] [address], [place] [address]- 5990 Jul, [facility] [address], [place] [address]- 0459 Jul, [facility] [id number] [place] [address] 26779- 6206 Jul, Abnormal mammogram R92.8 [facility] [address], [place] [address] 2546 Jul, [facility] [id number] [place] [address] 38916- 9928 Jul, UTI (urinary tract infection) N39.0 [facility] [id number] [place] [address] 43518- 0932 Jul, Dysuria R30.0 [facility] [id number] [place] [address] 33420- 1186 Jun, [facility] [id number] [place] [address] 35014- 3810 Jun, [facility] [address] [place] [address] 32063 2549 Jun, Hypokalemia E87.6 and Hematuria R31.9 [facility] [id number] [place] [address] 55208 2543 Jun, Hypokalemia E87.6 [facility] [address] [place] [address] 50961 2546 Jun, [facility] [address] [place] [address] 95249 2542 18 Jun, 2015 Hypokalemia E87.6 [facility] [id number] [place] [address] 21268 2546 18 Jun, 2015 Hypokalemia E87.6 [facility] [address], [place] [address]- 2546 15 Jun, 2015 Neuroforaminal stenosis of spine M99.89 ; Hypokalemia E87.6 ; Neck pain M54.2 ; Essential hypertension I10 ; Mixed hyperlipidemia E78.2 and Screening breast examination Z12.39 [facility] [id number] [place] [address] 82124- 8228 Jun, Dysuria R30.0 ; UTI (urinary tract infection) N39.0 and Hematuria R31.9 [facility] [address] 09562- 5960 May, [facility] [address] 36863- 1547 May, High risk sexual behavior Z72.51 ; Hypokalemia E87.6 ; Neuroforaminal stenosis of spine M99.89 ; Neck pain M54.2 ; Essential hypertension I10 ; Mixed hyperlipidemia E78.2 ; STD exposure Z20.2 and Concern about STD in female without diagnosis Z71.1 [place] [facility] [address] 40894- 0924 16 May, 2015 Neuroforaminal stenosis of spine M99.89 ; Neck pain M54.2 ; Hypokalemia E87.6 ; Essential hypertension I10 and Mixed hyperlipidemia E78.2 [place] [facility] [address] 40905- 6900 May, [facility] [id number] [place] [address] 70021 -1884 May, High risk sexual behavior Z72.51 ; STD exposure Z20.2 and Concern about STD in female without diagnosis Z71.1 [place] [address] 07985- 8632 May, [facility] [address] 35772- 2326 Apr, Neuroforaminal stenosis of spine M99.89 ; Mixed hyperlipidemia E78.2 ; Essential hypertension I10 and Hypokalemia E87.6 [facility] [address] 97051- 0080 Mar, [facility] [id number] [place] [address] 65710- 1970 Mar, Hypokalemia E87.6 [facility] [id number] [place] [address] 60466- 6292 Mar, Neuroforaminal stenosis of spine M99.89 ; Mixed hyperlipidemia E78.2 ; Neck pain M54.2 ; Essential hypertension I10 ; Abnormal fasting glucose R73.09 ; Hypokalemia E87.6 and Constipation K59.00 [place] [facility] [id number] [place] [address] 24614- 4560 Feb, Neuroforaminal stenosis of spine M99.89 ; Mixed hyperlipidemia E78.2 ; Neck pain M54.2 ; Essential hypertension I10 ; Abnormal fasting glucose R73.09 ; Hypokalemia E87.6 and Constipation K59.00 [place] [address] 13528- 3272 Feb, Elevated fasting blood sugar R73.01 [place] [address] 08226- 9178 Feb, Elevated fasting blood sugar R73.01 [facility] [address] 13134- 0846 Feb, Hair loss L65.9 [facility] [id number] [place] [address] 52078- 1292 Feb, Sinusitis J32.9 ; Essential hypertension I10 and Hair loss L65.9 [facility] [id number] [place] [address] 77829- 1434 Jan, [place] [facility] [address] 47076- 1786 Jan, Essential hypertension I10 ; Neuroforaminal stenosis of spine M99.89 ; Neck pain M54.2 ; Mixed hyperlipidemia E78.2 and Anxiety F41.9 [place] [facility] [address] 75301- 8555 Jan, [facility] [address] [place] [address] 60805- 1085 Jan, Mixed hyperlipidemia E78.2 ; Essential (primary) hypertension I10 ; Strain of muscle, fascia and tendon at neck level, subsequent encounter S16.1XXD and Tension-type headache, unspecified, not intractable G44.209 [place] [facility] [id number] [place] [address] 79655- 3788 Dec, Lumbar back pain 724.2 and Neuroforaminal stenosis of spine 724.00 [facility] [id number] [place] [address] 12269- 0118 Nov, [facility] [id number] [place] [address] 83316- 7407 Nov, Lumbar back pain 724.2 and Neuroforaminal stenosis of spine 724.00 [facility] [id number] [place] [address] 63127- 1729 Nov, Edema 782.3 ; Lumbar back pain 724.2 ; Essential hypertension, benign 401.1 ; Hyperlipemia 272.4 ; Neuroforaminal stenosis of spine 724.00 and Post-concussion headache 339.20 [place] [address] [place] [address] 16330- 0744 Nov, [facility] [address], [place] [address]- 4186 Nov, [facility] [id number] [place] [address] 15307- 5198 Oct, Essential hypertension, benign 401.1 [facility] [id number] [place] [address] 91143- 6745 Oct, Edema 782.3 ; Lumbar back pain 724.2 ; Essential hypertension, benign 401.1 ; Hyperlipemia 272.4 ; Neuroforaminal stenosis of spine 724.00 and Post-concussion headache 339.20 [place] [facility] [address] [address]- 0712 Oct, [facility] [address], [place] [address]- 4664 Oct, Edema 782.3 [facility] [address] [place] [address] 04838- 4064 Oct, Lumbar back pain 724.2 [facility] [address] [place] [address] 49532- 4197 Oct, Cervicalgia 723.1 ; Lumbar back pain 724.2 and High risk medication use V58.69 [facility] [address] [place] [address] 04449- 8758 Sep, [facility] [address] [place] [address] 94509- 0651 Sep, Lumbar strain 847.2 [facility] [address] [place] [address] 37941- 2527 August, Edema 782.3 and Eustachian tube dysfunction 381.81 [facility] [address] [place] [address] 09386- 4370 August, [facility] [address] [place] [address] 92298- 7718 August, Eustachian tube dysfunction 381.81 [facility] [address], [place] [address]- 5787 Jul, Otalgia 388.70 and Otitis media 382.9 [facility] [address], [place] [address]- 7135 Jul, [facility] [address] [place] [address] 62224- 1704 Jul, [facility] [address], [place] [address]- 1319 Jul, [facility] [address] [place] [address] 39537- 9858 14 Jul, 2014 [facility] [place] [facility] [address] [id number] [place] [address]- 7513 13 Jul, 2014 [facility] [place] [facility] [address] [id number] [place] [address]- 5614 27 Jun, 2014 [facility] [place] [facility] [address] [facility] [id number] [place] [address]- 2307 27 Jun, 2014 [facility] [place] [facility] [address] [id number] [place] [address] 16 Jun, 2014 [facility] [place] [facility] [address] [id number] [place] [address] May, 2014 [facility] [place] [facility] [address] [facility] [id number] [place] [address] May, 2014 [facility] [place] [facility] [address] [facility] [id number] [place] [address] May, 2014 [facility] [place] [facility] [address] [facility] [id number] [place] [address] May, 2014 [facility] [place] [facility] [address] [facility] [id number] [place] [address] May, 2014 [facility] [place] [facility] [address] [facility] [id number] [place] [address] May, 2014 [facility] [place] [facility] [address] [facility] [id number] [place] [address] 254 May, 2014 [facility] [place] [facility] [address] [facility] [id number] [place] [address] May, 2014 [facility] [place] [facility] [address] [facility] [id number] [place] [address] May, 2014 [facility] [place] [facility] [address] [facility] [id number] [place] [address] May, 2014 [facility] [place] [facility] [address] [facility] [id number] [place] [id number] Apr, [facility] [place] [facility] [address] [id number] [place] [address] Apr, [facility] [place] [facility] [address] [id number] [place] [address] Apr, [facility] [place] [facility] [address] [id number] [place] [address] Apr, [facility] [place] [facility] [address] [id number] [place] [address] Apr, [facility] [place] [facility] [address] [id number] [place] [address] Apr, [facility] [place] [facility] [address] [id number] [place] [address] Apr, [facility] [place] [facility] [address] [id number] [place] [address] Apr, [facility] [place] [facility] [address] [id number] [place] [address] Apr, [facility] [place] [facility] [address] [id number] [place] [address] Apr, [facility] [place] [facility] [address] [id number] [place] [address] Apr, [facility] [place] [facility] [address] [id number] [place] [address] Apr, [facility] [place] [facility] [address] [id number] [place] [address] Apr, [facility] [place] [facility] [address] [id number] [place] [address] Apr, [facility] [place] [facility] [address] [id number] [place] [address] 3648 Apr, [facility] [place] [facility] [address] [id number] [place] [address] 5701 Mar, [facility] [place] [facility] [address] [id number] [place] [address] 7474 Mar, [facility] [place] [facility] [address] [id number] [place] [address] 8885 Mar, [facility] [place] [facility] [address] [id number] [place] [address] Mar, [facility] [place] [facility] [address] [id number] [place] [address] Feb, [facility] [place] [facility] [address] [id number] [place] [address]- 7825 Feb, [facility] [place] [facility] [address] [id number] [place] [address] Feb, [facility] [place] [facility] [address] [id number] [place] [address]- 1479 Feb, [facility] [place] [facility] [address] [id number] [place] [address]- 7146 Jan, [facility] [place] [facility] [address] [id number], [place] [address] 3854 Jan, [facility] [place] [facility] [address] [id number] [place] [address]- 8275 Jan, [facility] [place] [facility] [address] [facility] [id number], [place] [address]- [address] Jan, [facility] [place] [facility] [address] [id number] [place] [address]- 5554 Jan, [facility] [place] [facility] [address] [id number], [place] [address]- 9566 Jan, [facility] [place] [facility] [address] [id number] 17[address] Jan, [facility] [place] [facility] [address] [id number], [place] [address]- 1506 Jan, [facility] [place] [facility] [address] [id number] [address] Dec, [facility] [place] [facility] [address] [id number] [place] [address]- 2716 29 Dec, 2013 [facility] [place] [facility] [address] [id number] [place] [address]- 1876 04 Dec, 2013 [facility] [place] [facility] [address] [id number] [place] [address] 04 Dec, 2013 [facility] [place] [facility] [address] [id number] [place] [address]- 7689 Oct, 2013 [facility] [place] [facility] [address] [id number] [place] [address]- 0353 Oct, 2013 [facility] [place] [facility] [address] [id number] [place] [address]- 7180 Oct, [facility] [place] [facility] [address] [id number] [place] [address]- 5783 Oct, 2013 [facility] [place] [facility] [address] [id number] [place] [address]- 9559 Oct, [facility] [place] [facility] [address] [id number] [place] [address]- 6100 Oct, [facility] [place] [facility] [address] [id number] [place] [address]- 4932 Oct, [facility] [place] [facility] [address] [id number] [place] [address]- 1698 Oct, [facility] [place] [facility] [address] [id number] [place] [address]- 1214 Sep, [facility] [place] [facility] [address] [id number] [place] [address]- 2714 Sep, [facility] [place] [facility] [address] [id number] [place] [address]- 1071 Sep, [facility] [place] [facility] [address] [id number] [place] [address]- 1439 Sep, [facility] [place] [facility] [address] [id number] [place] [address]- 7656 Sep, [facility] [place] [facility] [address] [id number] [place] [address]- 5260 Sep, [facility] [place] [facility] [address] [id number] [place] [address]- 9968 Sep, [facility] [place] [facility] [address] [id number] [place] [address]- 3684 Sep, [facility] [place] [facility] [address] [id number] [place] [address]- 0888 Sep, [facility] [place] [facility] [address] [id number] [place] [address]- 6211 Sep, [facility] [place] [facility] [address] [id number] [place] [address]- 5852 August, [facility] [place] [facility] [address] [id number] [place] [address]- 9956 August, [facility] [place] [facility] [address] [id number] [place] [address]- 7108 August, [facility] [place] [facility] [address] [id number] [place] [address]- 4338 August, [facility] [place] [facility] [address] [id number] [place] [address]- 4653 August, [facility] [place] [facility] [address] [id number] [place] [address]- 8670 August, [facility] [place] [facility] [address] [id number] [place] [address]- 8994 August, [facility] [place] [facility] [address] [id number] [place] [address]- 7284 August, [facility] [place] [facility] [address] [id number] [place] [address]- 7784 August, [facility] [place] [facility] [address] [id number] [place] [address]- 5030 August, [facility] [place] [facility] [address] [id number] [place] [address]- 3488 August, [facility] [place] [facility] [address] [id number] [place] [address]- 1370 August, [facility] [place] [facility] [address] [id number] [place] [address]- 5290 Jul, [facility] [place] [facility] [address] [id number] [place] [address]- 0963 Jul, [facility] [place] [facility] [address] [id number] [place] [address]- 1503 Jul, [facility] [place] [facility] [address] [id number] [place] [address]- 8886 Jul, [facility] [place] [facility] [address] [id number] [place] [address]- 3899 Jul, [facility] [place] [facility] [address] [id number] [place] [address]- 1892 Jul, [facility] [place] [facility] [address] [id number] [place] [address]- 2434 Jun, [facility] [place] [facility] [address] [id number] [place] [address]- 2271 Jun, [facility] [place] [facility] [address] [id number] [place] [address]- 7156 May, [facility] [place] [facility] [address] [id number] [place] [address]- 1529 May, [facility] [place] [facility] [address] [id number] [place] [address]- 5414 Apr, [facility] [place] [facility] [address] [id number] [place] [address]- 9120 Apr, [facility] [place] [facility] [address] [id number] [place] [address]- 7614 Apr, [facility] [place] [facility] [address] [id number] [place] [address]- 4860 Apr, [facility] [address] [id number] [place] [address]- 2114 Apr, [facility] [place] [facility] [address] [id number] [place] [address]- 7869 Apr, [facility] [place] [facility] [address] [id number] [place] [address]- 2134 Apr, [facility] [place] [facility] [address] [id number] [place] [address]- 9727 Apr, [facility] [place] [facility] [address] [id number] [place] [address]- 2629 Apr, [facility] [place] [facility] [address] [id number] [place] [address]- 5175 Apr, [facility] [place] [facility] [address] [id number] [place] [address]- 5393 Apr, [facility] [place] [facility] [address] [id number] [place] [address]- 1586 Apr, [facility] [place] [facility] [address] [id number] [place] [address]- 4709 Apr, [facility] [place] [facility] [address] [id number], [place] [address]- 8257 Mar, [facility] [place] [facility] [address] [id number], [place] [address]- 2429 Mar, [facility] [place] [facility] [address] [id number], [place] [address]- 6082 Mar, [facility] [place] [facility] [address] [id number] [place] [address]- 2248 Mar, [facility] [place] [facility] [address] [id number] [place] [address]- 7466 Feb, [facility] [place] [facility] [address] [id number], [place] [address]- 1575 Feb, [facility] [place] [facility] [address] [id number], [place] [address]- 1304 08 Feb, 2013 [facility] [place] [facility] [address] [id number] [place] [address]- 8569 08 Feb, 2013 [facility] [place] [facility] [address] [id number] [place] [address]- 4239 14 Jan, 2013 [facility] [place] [facility] [address] [id number] [place] [address]- 8328 14 Jan, 2013 [facility] [place] [facility] [address] [id number] [place] [address]- 3433 Jan, [facility] [place] [facility] [address] [id number] [place] [address]- 4690 Jan, [facility] [place] [facility] [address] [id number] [place] [address]- 1257 Jan, [facility] [place] [facility] [address] [id number] [place] [address]- 8817 Jan, [facility] [place] [facility] [address] [id number] [place] [address]- 2478 Jan, [facility] [place] [facility] [address] [facility] [id number] [place] [address]- 4441 Jan, [facility] [place] [facility] [address] [facility] [id number] [place] [address]- 0838 Jan, [facility] [place] [facility] [address] [id number], [place] [address]- 3855 26 Dec, 2012 [facility] [place] [facility] [address] [id number], [place] [address]- 2214 16 Dec, 2012 [facility] [place] [facility] [address] [id number] [place] [address]- 3004 16 Dec, 2012 [facility] [place] [facility] [address] [id number] [place] [address]- 8755 13 Dec, 2012 [facility] [place] [facility] [address] [facility] [id number] [place] [address]- 2879 17 Nov, 2012 [facility] [place] [facility] [address] [id number] [place] [address]- 4326 Nov, [facility] [address] [id number] [place] [address]- 9400 Nov, [facility] [place] [facility] [address] [id number] [place] [address] 2546 Nov, [facility] [address] [id number] [place] [address]- 7732 Oct, [facility] [address] [id number] [place] [address]- 8044 Sep, [facility] [address] [id number] [place] [address]- 7136 August, [facility] [address] [id number] [place] [address]- 9380 August, [facility] [address] [id number] [place] [address]- 0383 August, [facility] [address] [id number] [place] [address]- 7261 August, [facility] [address] [id number] [place] [address]- 5972 August, [facility] [address] [id number] [place] [address]- 6789 August, [facility] [address] [id number] [place] [address]- 4921 August, [facility] [address] [id number] [place] [address]- 0514 August, [facility] [place] [facility] [address] [id number] [place] [address]- 0316 August, [facility] [place] [facility] [address] [id number] [place] [address]- 2546 August, [facility] [address] [id number] [place] [address]- 9375 August, [facility] [address] [id number] [place] [address]- 2823 August, [facility] [address] [id number] [place] [address]- 4530 Jul, [facility] [address] [id number] [place] [address]- 1000 Jul, [facility] [place] [facility] [address] [id number] [place] [address]- 1923 Jul, [facility] [address] [id number] [place] [address]- 8813 Jul, [facility] [address] [id number] [place] [address]- 5964 Jul, [facility] [address] [id number] [place] [address]- 3639 Jul, [facility] [place] [facility] [address] [id number] [place] [address]- 4622 Jul, [facility] [place] [facility] [address] [id number] [place] [address]- 5001 Jul, [facility] [place] [facility] [address] [id number] [place] [address]- 4423 Jul, [facility] [place] [facility] [address] [id number] [place] [address]- 4448 Jul, [facility] [place] [facility] [address] [id number], [place] [address]- 0941 Jul, [facility] [place] [facility] [address] [id number] [place] [address]- 0821 Jun, [facility] [place] [facility] [address] [id number] [place] [address]- 8397 Jun, [facility] [place] [facility] [address] [id number] [place] [address]- 5650 Jun, [facility] [place] [facility] [address] [id number] [place] [address]- 4896 Jun, [facility] [address] [id number] [place] [address]- 9096 28 May, 2012 [facility] [place] [facility] [address] [id number] [place] [address] 2546 14 May, 2012 [facility] [place] [facility] [address] [id number] [place] [address]- 2546 05 May, 2012 [facility] [place] [facility] [address] [id number] [place] [address]- 2546 May, [facility] [address] [id number] [place] [address]- 6756 May, [facility] [place] [facility] [address] [id number] [place] [address]- 2546 May, [facility] [address] [id number] [place] [address]- 5256 Apr, [facility] [address] [id number] [place] [address]- 8562 Apr, [facility] [place] [facility] [address] [id number] [place] [address]- 5134 30 Apr, 2012 [facility] [address] [id number] [place] [address]- 7320 Apr, [facility] [place] [facility] [address] [id number] [place] [address] 2546 15 Mar, 2012 [facility] [place] [facility] [address] [id number] [place] [address] 2546 14 Mar, 2012 [facility] [place] [facility] [address] [id number] [place] [address] 2546 14 Mar, 2012 [facility] [place] [facility] [address] [id number] [place] [address] 2546 14 Mar, 2012 [facility] [place] [facility] [address] [id number] [place] [address]- 2546 Mar, [facility] [place] [facility] [address] [id number] [place] [address]- 8692 Mar, [facility] [place] [facility] [address] [id number] [place] [address]- 7488 Mar, [facility] [place] [facility] [address] [id number] [place] [address]- 1255 Feb, [facility] [place] [facility] [address] [id number] [place] [address]- 8989 Feb, [facility] [place] [facility] [address] [id number] [place] [address]- 1495 Feb, [facility] [place] [facility] [address] [id number] [place] [address]- 0227 Feb, [facility] [place] [facility] [address] [id number] [place] [address]- 7821 Jan, [facility] [place] [facility] [address] [id number] [place] [address]- 3181 Jan, [facility] [place] [facility] [address] [id number] [place] [address]- 5503 Jan, [facility] [place] [facility] [address] [id number] [place] [address]- 8800 Jan, [facility] [place] [facility] [address] [id number] [place] [address]- 3583 Jan, [facility] [place] [facility] [address] [id number], [place] [address]- 0998 Jan, [facility] [place] [facility] [address] [id number] [place] [address]- 2665 Dec, [facility] [place] [facility] [address] [id number] [place] [address]- 9703 Dec, [facility] [place] [facility] [address] [id number] [place] [address]- 6411 Nov, [facility] [place] [facility] [address] [id number] [place] [address]- 4637 Sep, [facility] [address] [id number] [place] [address]- 1130 August, [facility] [place] [facility] [address] [id number] [place] [address]- 4793 August, [facility] [place] [facility] [address] [id number] [place] [address]- 8291 August, [facility] [place] [facility] [address] [id number] [place] [address]- 2627 August, [facility] [place] [facility] [address] [id number] [place] [address]- 8079 August, [facility] [place] [facility] [address] [id number] [place] [address]- 5263 Jun, [facility] [place] [facility] [address] [id number] [place] [address]- 7406 Jun, [facility] [place] [facility] [address] [id number] [place] [address]- 9738 Apr, [facility] [place] [facility] [address] [id number] [place] [address]- 7574 Apr, [facility] [place] [facility] [address] [id number] [place] [address]- 1988 Mar, [facility] [place] [facility] [address] [id number] [place] [address]- 7336 Feb, [facility] [place] [facility] [address] [id number] [place] [address]- 1871 Feb, [facility] [place] [facility] [address] [id number] [place] [address]- 7218 14 Feb, 2011 [facility] [place] [facility] [address] [id number] [place] [address]- 4296 17 Jan, 2011 [facility] [place] [facility] [address] [id number] [place] [address]- 4220 15 Jan, 2011 [facility] [place] [facility] [id number], [place] [address]- 2546 15 Jan, 2011 [facility] [id number], [place] [address]- 4176 14 Jan, 2011 [facility] [id number], [place] [address]- 2546 May, [facility] [id number], [place] [address]- 2546 Mar, [facility] [id number], [place] [address]- 2546 Oct, [facility] [id number] [place] [address]- 2546 Sep, [facility] [id number] [place] [address]- 2546 Mar, [facility] [id number], [place] [address]- 7176 Jan, [facility] [id number], [place] [address]- 4318 Jan, [facility] [id number], [place] [address]- 4686 May, IMMUNIZATIONS No Known Immunizations SOCIAL HISTORY Never Assessed REASON FOR VISIT Refill request PLAN OF CARE VITAL SIGNS MEDICATIONS Unknown Medications RESULTS No Results PROCEDURES No Known procedures INSTRUCTIONS MEDICATIONS ADMINISTERED No Known Medications MEDICAL (GENERAL) HISTORY Type Description Date Medical History hypertension Medical History Colposcopy with loop electrode excision of the cervix was performed 06/2012, mild squamous atypia (no definite dyplasia). Performed at [facility] Dr. Joy. Medical History [...]
--- OUTSIDE RECORDS SUMMARY | 2018-06-10 05:11 | XMS REPORT ---
Author Author TANNA HAINES Organization [facility] Address [address] [place] [address] Care Team Providers Care Public Address System Operator Name Role Phone TANNA HAINES Unavailable PROBLEMS Type Condition ICD9-CM Code MXC08-HR Code Onset Dates Condition Status SNOMED Code Problem Anxiety F41.9 Active 62625154 Problem Abnormal glucose R73.09 Active 425695134 Problem Chronic pain due to trauma G89.21 Active 301226947 Problem Hypokalemia E87.6 Active 85942830 Problem Neck pain M54.2 Active 69912203 Problem Neuroforaminal stenosis of spine M99.89 Active 944389329136 Problem Mixed hyperlipidemia E78.2 Active 93197784 Problem Essential hypertension I10 Active 01598408 ALLERGIES Substance Reaction Event Type Date Status Fluarix Quadrivalent rash Drug Allergy Jun, Active Zostavax rash Drug Allergy Jun, Active Macrobid rash Drug Allergy Jun, Active Cipro hives Drug Allergy Jun, Active Bactrim hives Drug Allergy Jun, Active Baclofen Unknown Drug Allergy Jun, Active Amitriptyline HCl dizziness Drug Allergy Jun, Active Peanut Unknown Non Drug Allergy Jun, Active ENCOUNTERS Encounter Location Date Diagnosis [facility] [id number] [address] Oct, [facility] [id number] [address]99 Oct, [facility] [id number] [place] [address] 83426- 9249 Oct, Neuroforaminal stenosis of spine M99.89 [facility] [address] [address] Oct, Visit for TB skin test Z11.1 [facility] [id number] [place] [address] 22548- 8819 05 Oct, 2017 Cystitis without hematuria N30.90 [place] [id number] [place] [address] 14547- 3732 28 Sep, 2017 Screening breast examination Z12.39 [facility] [id number] [place] [address] 23719- 2905 26 Sep, 2017 Dysuria R30.0 and Cystitis without hematuria N30.90 [place] [id number] [place] [address] 58471- 3108 14 Sep, 2017 Essential hypertension I10 and Neuroforaminal stenosis of spine M99.89 [place] [id number] [place] [address] 38292- 6222 Sep, Abnormal glucose R73.[address] 64[address]- 8157 August, Lateral epicondylitis, right elbow M77.11 [place] [id number] [place] [address] 05166- 7162 August, Screen for STD (sexually transmitted disease) Z11.3 [place] [id number] [place] [address] 40589- 4441 August, Neuroforaminal stenosis of spine M99.89 ; Mixed hyperlipidemia E78.2 ; Elevated fasting glucose R73.01 ; Screening mammogram, encounter for Z12.31 and Encounter for well woman exam without gynecological exam Z00.00 [facility] [id number] [place] [address] 02253- 4157 August, Neuroforaminal stenosis of spine M99.89 [facility] [id number] [place] [address] 33489- 9771 August, Essential hypertension I10 ; Hypokalemia E87.6 and Mixed hyperlipidemia E78.2 [facility] [id number] [place] [address] 19957- 1791 Jul, [facility] [id number] [place] [address] 49274- 2388 Jul, Neuroforaminal stenosis of spine M99.89 [facility] [id number] [place] [address] 66768- 2849 Jul, Lateral epicondylitis, right elbow M77.11 [place] [id number] [place] [address] 81370- 6536 Jul, [facility] [id number] [place] [address] 44915- 0172 Jun, High ankle sprain of right lower extremity, initial encounter S93.431A [facility] [place] [id number] [place] [address] 79742- 8354 Jun, Essential hypertension I10 [facility] [place] [id number] [place] [address] 96539- 8575 Jun, [facility] [id number] [place] [address] 26657- 0224 Jun, [place] [id number] [place] [address] 22635- 1861 Jun, Neuroforaminal stenosis of spine M99.89 [place] [id number] [place] [address] 64464- 8975 Jun, Pain of right upper extremity M79.601 and Essential hypertension I10 [facility] [id number] [place] [address] 29955- 3187 Jun, [place] [id number] [place] [address] 59137- 7216 Jun, Dysuria R30.0 ; Acute cystitis with hematuria N30.01 and Screen for STD (sexually transmitted disease) Z11.3 [facility] [id number] [place] [address] 20326- 5852 May, Chronic pain due to trauma G89.21 [place] [id number] [place] [address] 41958- 6153 May, Essential hypertension I10 [facility] [address] 45683- 1206 May, Neuroforaminal stenosis of spine M99.89 [facility] [id number] [place] [address] 54145- 4863 Apr, Allergic reaction, initial encounter T78.40XA [facility] [id number] [place] [address] 69443- 8569 Apr, Low back pain, unspecified back pain laterality, unspecified chronicity, with sciatica presence unspecified M54.5 ; Acute cystitis with hematuria N30.01 ; Neuroforaminal stenosis of spine M99.89 ; Bilateral acute serous otitis media, recurrence not specified H65.03 ; Mixed hyperlipidemia E78.2 ; Essential hypertension I10 ; Immunization counseling Z71.89 and Encounter for immunization Z23 [place] [address] 80758- 9681 Apr, Neck pain M54.2 [place] [address] 63138- 6319 Mar, Neuroforaminal stenosis of spine M99.89 [facility] [id number] [place] [address] 53622- 1815 Mar, Pharyngitis due to other organism J02.8 [place] [id number] [place] [address] 61657- 0573 Feb, Neuroforaminal stenosis of spine M99.89 [place] [id number] [place] [address] 95720- 8880 08 Feb, 2017 UTI (urinary tract infection) N39.0 [place] [id number] [place] [address] 45996- 1514 07 Feb, 2017 Recent urinary tract infection Z87.440 ; Neuroforaminal stenosis of spine M99.89 ; Neck pain M54.2 ; Chronic pain due to trauma G89.21 and Recurrent UTI N39.0 [place] [address] 19820- 6974 Feb, [place] [address] 02155- 3943 Jan, Neuroforaminal stenosis of spine M99.89 [place] [address] 43433- 8386 28 Dec, 2016 Neuroforaminal stenosis of spine M99.89 [place] [address] 24130- 9979 18 Dec, 2016 Acute seasonal allergic rhinitis due to pollen J30.1 [place] [address] 71801- 5630 08 Dec, 2016 [place] [address] 17145- 0949 08 Dec, 2016 Acute seasonal allergic rhinitis, unspecified trigger J30.2 ; Allergic conjunctivitis of both eyes H10.13 and Dysfunction of both eustachian tubes H69.83 [place] [address] 15783- 9041 07 Dec, 2016 [place] [address] 23837- 4812 Dec, Nevus D22.9 [place] [address] 29987- 6577 Nov, Chronic pain due to trauma G89.21 and Neuroforaminal stenosis of spine M99.89 [place] [address] 23089- 1809 Nov, Neuroforaminal stenosis of spine M99.89 ; Essential hypertension I10 ; Mixed hyperlipidemia E78.2 ; Hypokalemia E87.6 ; Neck pain M54.2 and Nevus D22.9 [place] [address] 26489- 9819 Oct, Neuroforaminal stenosis of spine M99.89 [facility] [id number] [place] [address] 34422- 2415 Sep, Neuroforaminal stenosis of spine M99.89 [facility] [address] [id number] [address] 3590 Sep, [facility] [address] [facility] [id number] [place] [address] 56774- 1240 August, [facility] [id number] [place] [address] 67816- 2332 August, Neck pain M54.2 and Neuroforaminal stenosis of spine M99.89 [facility] [address] [address]- 2898 August, Routine gynecological examination Z01.419 and Screening breast examination Z12.39 [facility] [id number] [place] [address] 96013- 4336 Jul, [facility] [id number] [place] [address] 07045- 9799 Jul, [facility] [id number] [place] [address] 07308- 3230 Jul, Neuroforaminal stenosis of spine M99.89 [facility] [address] [address]- 3979 Jul, [facility] [address] [facility] [id number] [address]- 2543 Jul, 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 [facility] [address] [facility] [id number] [place] [address] 2546 Jul, [facility] [address] [facility] [id number] [address]- 2544 Jul, [facility] [id number] [place] [address] 97514- 4918 Jun, Neuroforaminal stenosis of spine M99.89 [place] [id number] [place] [address] 03839- 7404 Jun, Uterine leiomyoma, unspecified location D25.9 and Allergic reaction caused by a drug, initial encounter T78.40XA [facility] [id number] [place] [address] 88146- 4061 Jun, [place] [address] 05389- 1953 May, UTI symptoms R39.9 and Pain of right sacroiliac joint M53.3 [place] [address] 22197- 2585 May, Neuroforaminal stenosis of spine M99.89 [facility] [id number] [place] [address] 11644- 0568 May, [facility] [address] 96556- 5977 May, Acute mucoid otitis media of left ear H65.112 and Acute non- recurrent maxillary sinusitis J01.00 [place] [place] [id number] [place] [address] 34444- 9011 May, Acute bacterial conjunctivitis of both eyes H10.33 ; Left arm pain M79.602 and Hypokalemia E87.6 [place] [place] [id number] [place] [address] 98999- 5243 Apr, [facility] [id number] [place] [address] 18453- 5276 Apr, Neuroforaminal stenosis of spine M99.89 ; Neck pain M54.2 ; Chronic pain due to trauma G89.21 ; Mixed hyperlipidemia E78.2 ; Essential hypertension I10 and Hypokalemia E87.6 [place] [address] 45464- 1415 Mar, Oral candidiasis B37.0 ; Neuroforaminal stenosis of spine M99.89 ; Neck pain M54.2 and Chronic pain due to trauma G89.21 [facility] [id number] [place] [address] 09973- 7378 Feb, [facility] [id number] [place] [address] 96839- 0221 Feb, [facility] [address] 22100- 0370 Feb, UTI (urinary tract infection) N39.0 [facility] [address] 29040- 5704 Feb, Dysuria R30.0 [facility] [id number] [place] [address] 79621- 7646 Feb, Dysuria R30.0 [place] [address] 32375- 5931 Feb, Neuroforaminal stenosis of spine M99.89 ; Neck pain M54.2 ; Essential hypertension I10 ; Chronic pain due to trauma G89.21 ; Dysuria R30.0 ; Abnormal MRI, shoulder R93.8 and Acute cystitis without hematuria N30.00 [facility] [id number] [place] [address] 56357- 5036 Jan, [facility] [id number] [place] [address] 72289- 2478 Jan, [facility] [id number] [place] [address] 85136- 0306 Jan, [facility] [address] 35677- 1097 Jan, Abnormal MRI R93.8 [facility] [id number] [place] [address] 80316- 2324 Dec, [facility] [address] 21453 -2678 15 Dec, 2015 Acute pain of left shoulder M25.512 [facility] [address] [facility] [id number] [address]- 2837 09 Dec, 2015 [facility] [address] [facility] [id number] [address]- 5365 08 Dec, 2015 [facility] [id number] [place] [address] 17744- 3533 07 Dec, 2015 Acute pain of left shoulder M25.512 [facility] [address] [facility] [id number] [place] [address]- 0254 Nov, [facility] [id number] [place] [address] 69833- 8329 Nov, Neuroforaminal stenosis of spine M99.89 ; Neck pain M54.2 ; Abnormal mammogram R92.8 ; Essential hypertension I10 and Chronic pain due to trauma G89.21 [facility] [id number] [address]- 7708 Nov, [facility] [id number] [address]- 5017 Oct, Acute stress disorder F43.0 [facility] [id number] [address]- 9465 Oct, [facility] [address] [address]- 1614 Oct, [facility] [address] [address]- 3594 Oct, [facility] [id number] [address]- 1505 Sep, [facility] [id number] [address]- 8255 August, [facility] [id number] [address]- 3117 Jul, Neuroforaminal stenosis of spine M99.89 ; Neck pain M54.2 ; Abnormal mammogram R92.8 and Essential hypertension I10 [facility] [id number] [place] [address] 78183 2546 Jul, [facility] [id number] [place] [address] 40461 2546 Jul, [facility] [id number] [place] [address] 89949 2546 Jul, Abnormal mammogram R92.8 [facility] [id number] [place] [address] 22660 2546 Jul, [facility] [id number] [place] [address] 66312 2546 Jul, UTI (urinary tract infection) N39.0 [facility] [id number] [place] [address] 13817 2546 Jul, Dysuria R30.0 [facility] [id number] [place] [address] 55769 2546 Jun, [facility] [id number] [place] [address] 48055 2546 Jun, [facility] [id number] [place] [address] 73777 2546 Jun, Hypokalemia E87.6 and Hematuria R31.9 [facility] [id number] [place] [address] 26448 2546 Jun, Hypokalemia E87.6 [facility] [address] [address] 2546 Jun, [facility] [id number] [place] [address] 83196 2546 Jun, Hypokalemia E87.6 [facility] [address] [address] 2546 Jun, Hypokalemia E87.6 [place] [id number] [place] [address] 58210- 0831 15 Jun, 2015 Neuroforaminal stenosis of spine M99.89 ; Hypokalemia E87.6 ; Neck pain M54.2 ; Essential hypertension I10 ; Mixed hyperlipidemia E78.2 and Screening breast examination Z12.39 [facility] [id number] [place] [address] 98389- 4660 08 Jun, 2015 Dysuria R30.0 ; UTI (urinary tract infection) N39.0 and Hematuria R31.9 [place] [id number] [place] [address] 59682- 6383 May, [place] [id number] [place] [address] 05098- 7135 18 May, 2015 High risk sexual behavior Z72.51 ; Hypokalemia E87.6 ; Neuroforaminal stenosis of spine M99.89 ; Neck pain M54.2 ; Essential hypertension I10 ; Mixed hyperlipidemia E78.2 ; STD exposure Z20.2 and Concern about STD in female without diagnosis Z71.1 [place] [id number] [place] [address] 48219- 4419 16 May, 2015 Neuroforaminal stenosis of spine M99.89 ; Neck pain M54.2 ; Hypokalemia E87.6 ; Essential hypertension I10 and Mixed hyperlipidemia E78.2 [place] [id number] [place] [address] 09763- 2105 May, [facility] [id number] [place] [address] 39817 -9072 08 May, 2015 High risk sexual behavior Z72.51 ; STD exposure Z20.2 and Concern about STD in female without diagnosis Z71.1 [facility] [id number] [place] [address] 55258- 1768 05 May, 2015 [facility] [address] [place] [address] 91879- 6857 Apr, Neuroforaminal stenosis of spine M99.89 ; Mixed hyperlipidemia E78.2 ; Essential hypertension I10 and Hypokalemia E87.6 [facility] [id number] [place] [address] 38805- 1860 Mar, [facility] [id number] [place] [address] 34720- 4560 Mar, Hypokalemia E87.6 [facility] [address] 06983- 3746 Mar, Neuroforaminal stenosis of spine M99.89 ; Mixed hyperlipidemia E78.2 ; Neck pain M54.2 ; Essential hypertension I10 ; Abnormal fasting glucose R73.09 ; Hypokalemia E87.6 and Constipation K59.00 [place] [address] 82625- 2024 Feb, Neuroforaminal stenosis of spine M99.89 ; Mixed hyperlipidemia E78.2 ; Neck pain M54.2 ; Essential hypertension I10 ; Abnormal fasting glucose R73.09 ; Hypokalemia E87.6 and Constipation K59.00 [place] [id number] [place] [address] 55170- 6562 Feb, Elevated fasting blood sugar R73.01 [facility] [place] [id number] [place] [address] 06169- 8727 Feb, Elevated fasting blood sugar R73.01 [facility] [place] [id number] [place] [address] 15789- 9761 Feb, Hair loss L65.9 [facility] [id number] [place] [address] 81412- 0954 Feb, Sinusitis J32.9 ; Essential hypertension I10 and Hair loss L65.9 [facility] [id number] [place] [address] 82188- 8133 Jan, [facility] [address] 91110- 9326 Jan, Essential hypertension I10 ; Neuroforaminal stenosis of spine M99.89 ; Neck pain M54.2 ; Mixed hyperlipidemia E78.2 and Anxiety F41.9 [place] [address] 74704- 0434 Jan, [facility] [address] 61943- 9902 Jan, Mixed hyperlipidemia E78.2 ; Essential (primary) hypertension I10 ; Strain of muscle, fascia and tendon at neck level, subsequent encounter S16.1XXD and Tension-type headache, unspecified, not intractable G44.209 [place] [address] 48937- 4384 Dec, Lumbar back pain 724.2 and Neuroforaminal stenosis of spine 724.00 [place] [address] 23577- 6057 Nov, [place] [address] 30848- 6741 Nov, Lumbar back pain 724.2 and Neuroforaminal stenosis of spine 724.00 [place] [address] 73312- 6934 Nov, Edema 782.3 ; Lumbar back pain 724.2 ; Essential hypertension, benign 401.1 ; Hyperlipemia 272.4 ; Neuroforaminal stenosis of spine 724.00 and Post-concussion headache 339.20 [facility] [place] [id number] [place] [address] 11449- 3878 Nov, [place] [address] 50876- 2799 Nov, [place] [address] 99524- 5468 Oct, Essential hypertension, benign 401.1 [place] [address] 03913- 4094 Oct, Edema 782.3 ; Lumbar back pain 724.2 ; Essential hypertension, benign 401.1 ; Hyperlipemia 272.4 ; Neuroforaminal stenosis of spine 724.00 and Post-concussion headache 339.20 [facility] [id number] [place] [address] 48753- 8347 Oct, [facility] [id number] [place] [address] 00133- 0596 Oct, Edema 782.3 [facility] [address] 51833- 6468 Oct, Lumbar back pain 724.2 [place] [address] 66597- 4216 Oct, Cervicalgia 723.1 ; Lumbar back pain 724.2 and High risk medication use V58.69 [facility] [place] [id number] [place] [address] 53944- 6396 Sep, [facility] [id number] [place] [address] 27747- 9754 Sep, Lumbar strain 847.2 [place] [id number] [place] [address] 76495- 5722 August, Edema 782.3 and Eustachian tube dysfunction 381.81 [facility] [place] [id number] [place] [address] 15102- 9467 August, [facility] [id number] [place] [address] 82400- 9425 August, Eustachian tube dysfunction 381.81 [place] [address] [id number] [place] [address] 63317- 3462 Jul, Otalgia 388.70 and Otitis media 382.9 [facility] [id number] [place] [address] 47491- 6833 Jul, [facility] [id number] [place] [address] 41809- 1393 28 Jul, 2014 [facility] [place] [facility] [address] [id number] [place] [address]- 3316 28 Jul, 2014 [facility] [place] [facility] [address] [id number] [place] [address]- 7262 14 Jul, 2014 [facility] [place] [facility] [address] [facility] [id number] [place] [address]- 7835 13 Jul, 2014 [facility] [place] [facility] [address] [id number] [place] [address]- 2288 27 Jun, 2014 [facility] [place] [facility] [address] [id number] [place] [address]- 1223 27 Jun, 2014 [facility] [place] [facility] [address] [facility] [id number] [place] [address]- 2999 16 Jun, 2014 [facility] [place] [facility] [address] [facility] [id number] [place] [address]- 6224 May, 2014 [facility] [place] [facility] [address] [facility] [id number] [place] [address]- 0176 May, 2014 [facility] [place] [facility] [address] [facility] [id number] [place] [address]- 0042 May, 2014 [facility] [place] [facility] [address] [facility] [id number] [place] [address]- 0512 May, 2014 [facility] [place] [facility] [address] [facility] [id number] [place] [address]- 8883 May, 2014 [facility] [place] [facility] [address] [facility] [id number] [address] 5714 May, 2014 [facility] [place] [facility] [address] [facility] [id number] [place] [address]- 8018 May, 2014 [facility] [place] [facility] [address] [facility] [id number] [place] [address]- 8159 May, 2014 [facility] [place] [facility] [address] [facility] [id number] [place] [address] 05 May, 2014 [facility] [place] [facility] [address] [id number] [place] [address]- 1610 May, [facility] [place] [facility] [address] [id number] [place] [address]- 0688 Apr, [facility] [place] [facility] [address] [id number] [place] [address]- 6433 Apr, [facility] [place] [facility] [address] [id number] [place] [address]- 6236 Apr, [facility] [place] [facility] [address] [id number] [place] [address]- 9416 Apr, [facility] [place] [facility] [address] [id number] [place] [address]- 4777 Apr, [facility] [place] [facility] [address] [id number] [place] [address] Apr, [facility] [place] [facility] [address] [id number] [place] [address] 365[address] Apr, [facility] [place] [facility] [address] [id number] [place] [address] 2513 Apr, [facility] [place] [facility] [address] [id number] [place] [address] 2679 Apr, [facility] [place] [facility] [address] [id number] [place] [address] 2319 Apr, [facility] [place] [facility] [address] [id number] [place] [address]- 0775 Apr, [facility] [place] [facility] [address] [id number] [place] [address]- 9117 Apr, [facility] [place] [facility] [address] [id number] [place] [address] 3353 Apr, [facility] [place] [facility] [address] [id number] [place] [address] 1896 Apr, [facility] [place] [facility] [address] [id number] [place] [address] 4316 Apr, [facility] [place] [facility] [address] [id number] [place] [address] 1055 Mar, [facility] [place] [facility] [address] [id number] [place] [address] Mar, [facility] [place] [facility] [address] [id number] [place] [address]- 7421 Mar, [facility] [place] [facility] [address] [id number] [place] [address]- 0285 Mar, [facility] [place] [facility] [address] [id number] [place] [address]- 5060 Feb, [facility] [place] [facility] [address] [id number] [place] [address]- 0959 Feb, [facility] [place] [facility] [address] [id number] [place] [address]- 2682 Feb, [facility] [place] [facility] [address] [id number] [place] [address]- 3629 Feb, [facility] [place] [facility] [address] [id number] [place] [address]- 8672 Jan, [facility] [place] [facility] [address] [id number] [place] [address]- 9055 Jan, [facility] [place] [facility] [address] [id number] [place] [address]- 7378 Jan, [facility] [place] [facility] [address] [id number] [place] [address]- 7957 Jan, [facility] [place] [facility] [address] [id number] [place] [address]- 1419 Jan, [facility] [place] [facility] [address] [id number] [place] [address]- 9715 Jan, [facility] [place] [facility] [address] [id number] [place] [address]- 7019 Jan, [facility] [place] [facility] [address] [id number] [place] [address]- 3692 Jan, [facility] [place] [facility] [address] [id number] [place] [address]- 7489 Dec, [facility] [place] [facility] [address] [id number] [place] [address]- 0526 Dec, 2013 [facility] [place] [facility] [address] [id number] [place] [address]- 5278 Dec, [facility] [place] [facility] [address] [id number] [place] [address]- 9660 Dec, [facility] [place] [facility] [address] [id number] [place] [address]- 4876 Oct, [facility] [place] [facility] [address] [id number] [place] [address]- 7694 Oct, 2013 [facility] [place] [facility] [address] [id number] [place] [address]- 9508 Oct, 2013 [facility] [place] [facility] [address] [id number] [place] [address]- 4179 Oct, [facility] [place] [facility] [address] [id number] [place] [address]- 2335 Oct, [facility] [place] [facility] [address] [id number] [place] [address]- 7771 Oct, [facility] [place] [facility] [address] [id number] [place] [address]- 5434 Oct, [facility] [place] [facility] [address] [id number] [place] [address]- 1106 Oct, [facility] [place] [facility] [address] [id number] [place] [address]- 9257 Sep, [facility] [place] [facility] [address] [id number] [place] [address]- 7182 Sep, [facility] [place] [facility] [address] [id number] [id number] [address] Sep, [facility] [place] [facility] [address] [id number] [place] [address]- 7031 Sep, [facility] [place] [facility] [address] [id number] [place] [address]- 4578 Sep, [facility] [place] [facility] [address] [id number] [place] [address]- 2696 Sep, [facility] [place] [facility] [address] [id number] [place] [address]- 2849 Sep, [facility] [place] [facility] [address] [id number] [place] [address]- 0785 Sep, [facility] [place] [facility] [address] [id number] [place] [address]- 8475 Sep, [facility] [place] [facility] [address] [id number] [place] [address]- 4236 Sep, [facility] [place] [facility] [address] [id number] [place] [address]- 3487 August, [facility] [place] [facility] [address] [id number] [place] [address]- 4125 August, [facility] [place] [facility] [address] [id number] [place] [address]- 3545 August, [facility] [place] [facility] [address] [id number] [place] [address]- 7368 August, [facility] [place] [facility] [address] [id number] [place] [address]- 1765 August, [facility] [place] [facility] [address] [id number] [place] [address]- 8978 August, [facility] [place] [facility] [address] [id number] [place] [address]- 1204 August, [facility] [place] [facility] [address] [id number] [place] [address]- 0290 August, [facility] [place] [facility] [address] [id number] [place] [address]- 8532 August, [facility] [place] [facility] [address] [id number] [place] [address]- 5961 August, [facility] [place] [facility] [address] [id number] [place] [address]- 2462 August, [facility] [place] [facility] [address] [id number] [place] [address]- 6426 August, [facility] [place] [facility] [address] [id number] [place] [address]- 1201 Jul, [facility] [place] [facility] [address] [id number] [place] [address]- 6901 Jul, [facility] [place] [facility] [address] [id number] [place] [address]- 3814 Jul, [facility] [place] [facility] [address] [id number] [place] [address]- 2184 Jul, [facility] [place] [facility] [address] [id number] [place] [address]- 0365 Jul, [facility] [place] [facility] [address] [id number] [place] [address]- 4952 Jul, [facility] [place] [facility] [address] [id number] [place] [address]- 1046 Jun, [facility] [place] [facility] [address] [id number] [place] [address]- 3593 Jun, [facility] [place] [facility] [address] [id number] [place] [address]- 5573 May, [facility] [place] [facility] [address] [id number] [place] [address]- 3776 May, [facility] [place] [facility] [address] [id number] [place] [address]- 9240 Apr, [facility] [place] [facility] [address] [id number] [place] [address]- 3825 Apr, [facility] [place] [facility] [address] [id number] [place] [address]- 7791 Apr, [facility] [place] [facility] [address] [id number] [place] [address]- 8454 Apr, [facility] [place] [facility] [address] [id number] [place] [address]- 2617 Apr, [facility] [place] [facility] [address] [id number] [place] [address]- 7717 Apr, [facility] [place] [facility] [address] [id number] [place] [address]- 1324 Apr, [facility] [place] [facility] [address] [id number] [place] [address]- 9684 Apr, [facility] [place] [facility] [address] [id number] [place] [address]- 9338 Apr, [facility] [place] [facility] [address] [id number] [place] [address]- 3092 Apr, [facility] [place] [facility] [address] [id number] [place] [address]- 3549 Apr, [facility] [place] [facility] [address] [id number] [place] [address]- 2951 Apr, [facility] [place] [facility] [address] [id number] [place] [address]- 5606 Apr, [facility] [place] [facility] [address] [id number] [place] [address]- 0919 Mar, [facility] [place] [facility] [address] [id number] [place] [address]- 9422 Mar, [facility] [place] [facility] [address] [id number] [place] [address]- 5412 Mar, [facility] [place] [facility] [address] [id number] [place] [address]- 7529 Mar, [facility] [place] [facility] [address] [id number] [place] [address]- 5546 Feb, [facility] [place] [facility] [address] [id number] [place] [address]- 9766 Feb, [facility] [place] [facility] [address] [id number] [place] [address]- 3194 Feb, [facility] [place] [facility] [address] [id number] [place] [address]- 1318 Feb, [facility] [place] [facility] [address] [id number] [place] [address]- 1343 Jan, [facility] [place] [facility] [address] [id number] [place] [address]- 8241 14 Jan, 2013 [facility] [place] [facility] [address] [id number] [place] [address]- 0806 Jan, [facility] [place] [facility] [address] [id number] [place] [address]- 2316 Jan, [facility] [place] [facility] [address] [id number] [place] [address]- 1006 Jan, [facility] [place] [facility] [address] [id number] [place] [address]- 2050 Jan, [facility] [place] [facility] [address] [id number] [place] [address]- 0448 Jan, [facility] [place] [facility] [address] [id number] [place] [address]- 8920 Jan, [facility] [place] [facility] [address] [id number] [place] [address]- 9275 Jan, [facility] [place] [facility] [address] [id number] [place]18 26 Dec, 2012 [facility] [place] [facility] [address] [id number] [place] [address]- 6437 16 Dec, 2012 [facility] [place] [facility] [address] [id number] [place] [address] 16 Dec, 2012 [facility] [place] [facility] [address] [id number] [place] [address]- 5274 Dec, [facility] [address] [id number] [place] [address]- 9981 Nov, [facility] [address] [id number] [place] [address]- 1783 Nov, [facility] [address] [id number] [place] [address]- 9605 Nov, [facility] [address] [id number] [place] [address]- 1240 Nov, [facility] [address] [id number] [place] [address]- 0419 Oct, [facility] [address] [id number] [place] [address]- 8145 Sep, [facility] [address] [id number] [place] [address]- 8752 August, [facility] [address] [id number] [place] [address]- 7615 August, [facility] [address] [id number] [place] [address]- 5286 August, [facility] [address] [id number] [place] [address]- 0783 August, [facility] [address] [id number] [place] [address]- 0418 August, [facility] [address] [id number] [place] [address]- 5028 August, [facility] [address] [id number] [place] [address]- 2797 August, [facility] [address] [id number] [place] [address]- 2586 August, [facility] [address] [id number] [place] [address]- 4371 August, [facility] [address] [id number] [place] [address]- 2701 August, [facility] [address] [id number] [place] [address]- 0014 August, [facility] [address] [id number] [place] [address]- 9198 August, [facility] [address] [id number] [place] [address]- 3345 Jul, [facility] [address] [id number] [place] [address]- 9718 Jul, [facility] [address] [id number] [place] [address]- 2694 Jul, [facility] [address] [id number] [place] [address]- 2269 Jul, [facility] [address] [id number] [place] [address]- 2278 Jul, [facility] [address] [id number] [place] [address]- 1073 Jul, [facility] [address] [id number] [place] [address]- 2974 Jul, [facility] [address] [id number] [place] [address]- 7589 Jul, [facility] [place] [facility] [address] [id number] [place] [address]- 3262 Jul, [facility] [place] [facility] [address] [id number] [place] [address]- 9768 Jul, [facility] [place] [facility] [address] [id number] [place] [address]- 6684 Jul, [facility] [place] [facility] [address] [id number] [place] [address]- 7259 Jun, [facility] [place] [facility] [address] [id number] [place] [address]- 9050 Jun, [facility] [address] [id number] [place] [address]- 0444 Jun, [facility] [place] [facility] [address] [id number] [place] [address]- 3846 Jun, [facility] [address] [id number] [place] [address]- 6376 May, [facility] [place] [facility] [address] [id number] [place] [address]- 7324 14 May, 2012 [facility] [address] [id number] [place] [address]- 0346 May, [facility] [address] [id number] [place] [address]- 4936 May, [facility] [address] [id number] [place] [address]- 9544 May, [facility] [address] [id number] [place] [address]- 7240 May, [facility] [address] [id number] [place] [address]- 1632 Apr, [facility] [address] [id number] [place] [address]- 6127 Apr, [facility] [address] [id number] [place] [address]- 6559 30 Apr, 2012 [facility] [place] [facility] [address] [id number] [place] [address]- 0672 Apr, [facility] [place] [facility] [address] [id number] [place] [address]- 2341 15 Mar, 2012 [facility] [place] [facility] [address] [id number] [place] [address] 2541 14 Mar, 2012 [facility] [address] [id number] [place] [address]- 6453 14 Mar, 2012 [facility] [place] [facility] [address] [id number] [place] [address]- 0918 Mar, [facility] [place] [facility] [address] [id number] [place] [address]27 Mar, [facility] [place] [facility] [address] [id number] [place] [address]- 7856 Mar, [facility] [place] [facility] [address] [id number] [place] [address]- 2876 Mar, [facility] [place] [facility] [address] [id number] [place] [address]- 2502 Feb, [facility] [place] [facility] [address] [id number] [place] [address]- 8081 Feb, [facility] [place] [facility] [address] [id number] [place] [address]- 4759 Feb, [facility] [place] [facility] [address] [id number] [place] [address]- 1587 Feb, [facility] [place] [facility] [address] [id number] [place] [address]- 3011 Jan, [facility] [place] [facility] [address] [id number] [place] [address]- 7414 Jan, [facility] [place] [facility] [address] [id number] [place] [address]- 6940 Jan, [facility] [place] [facility] [address] [id number] [place] [address]- 2049 Jan, [facility] [place] [facility] [address] [id number] [place] 2472 Jan, [facility] [place] [facility] [address] [id number] [place] 7138 Jan, [facility] [place] [facility] [address] [id number] [place] [address]- 6078 Dec, [facility] [place] [facility] [address] [id number] [place] [address]- 8827 Dec, [facility] [address] [id number] [place] [address]- 4280 Nov, [facility] [place] [facility] [address] [id number] [place] [address]- 5969 Sep, [facility] [place] [facility] [address] [id number] [place] [address]- 8099 August, [facility] [place] [facility] [address] [id number] [place] [address]- 8954 August, [facility] [place] [facility] [address] [id number] [place] [address]- 8644 August, [facility] [place] [facility] [address] [id number] [place] [address]- 6550 August, [facility] [place] [facility] [address] [id number] [place] [address]- 8391 August, [facility] [place] [facility] [address] [id number] [place] [address]- 0733 Jun, [facility] [place] [facility] [address] [id number] [place] [address]- 4602 Jun, [facility] [place] [facility] [address] [id number] [place] [address]- 4987 Apr, [facility] [place] [facility] [address] [id number] [place] [address]- 2734 Apr, [facility] [place] [facility] [address] [id number] [place] [address]- 5185 Mar, [facility] [place] [facility] [address] [id number] [place] [address]- 0862 Feb, [facility] [place] [facility] [address] [id number] [place] [address]- 2142 Feb, [facility] [place] [facility] [address] [id number] [place] [address]- 7250 Feb, [facility] [place] [facility] [id number] [address]- 2546 17 Jan, 2011 [facility] [id number] [address] 2546 Jan, [facility] [id number] [place] [address]- 2546 Jan, [facility] [id number] [place] [address]- 2546 Jan, [facility] [id number] [place] [address]- 2546 May, [facility] [id number] [place] [address]- 2546 Mar, [facility] [id number] [address]- 2546 Oct, [facility] [id number] [place] [address]- 2546 Sep, [facility] [id number] [place] [address]- 2546 Mar, [facility] [id number] [place] [address]- 2546 Jan, [facility] [id number] [address] Jan, [facility] [id number] [address] May, IMMUNIZATIONS No Known Immunizations SOCIAL HISTORY Never Assessed REASON FOR VISIT UTI Symptoms / pink tinged urine /allergies--tjanssenMA, --symptoms started yesterday, increased urination and decreased output. Has a tingle while urinating. PLAN OF CARE Activity Details Follow Up prn, needs to establish care Reason: VITAL SIGNS Height 62 in 2017-06-14 Weight 183.7 lbs 2017-06-14 Temperature 97.7 degrees Fahrenheit 2017-06-14 Heart Rate 76 bpm 2017-06-14 Respiratory Rate 20 2017-06-14 BMI 33.60 kg/m2 2017-06-14 Blood pressure systolic 142 mmHg 2017-06-14 Blood pressure diastolic 94 mmHg 2017-06-14 MEDICATIONS Medication Instructions Dosage Frequency Start Date End Date Duration Status Pravastatin Sodium 20 mg TAKE ONE TABLET BY MOUTH AT BEDTIME 30 Active Triamterene-HCTZ 37.5-25 MG Orally Once a day 1 tablet in the morning 24h 30 Active Ibuprofen 800 MG Orally PRN for pain 1 tablet as needed Active Levaquin 500 mg Orally Once a day 1 tablet 24h Jun, Jun, 03 days Active Amlodipine Besylate 5 mg Orally Once a day 1 tablet 24h Active Meclizine HCl 25 MG Orally Once a day 1 tablet as needed 24h Active Klor-Con 10 10 MEQ Orally Once a day 2 tablet with food 24h Active Lidocaine 4 % Externally Three times a day prn 1 application to affected area as needed Feb, Active Hydrocodone-Acetaminophen 5-325 MG Orally 3 -4 times a day prn. must last 4 weeks 1 tablet as needed May, Active Bactrim DS 800-160 MG Orally Twice a day 1 tablet 12h Jun,Jun 10 day(s) Active RESULTS No Results PROCEDURES Procedure Date Ordered Result Body Site URINALYSIS, AUTO, W/O SCOPE June 14, 2017 URINE CULTURE/COLONY COUNT June 14, 2017 No Charge June 14, 2017 INSTRUCTIONS MEDICATIONS ADMINISTERED No Known Medications MEDICAL (GENERAL) HISTORY Type Description Date Medical History hypertension Medical History Colposcopy with loop electrode excision of the cervix was performed 06/2012, mild squamous atypia (no definite dyplasia). Performed at [facility] Dr. Joy. Medical History Acute [...]
--- OUTSIDE RECORDS SUMMARY | 2018-06-10 05:12 | XMS REPORT ---
Author Author NASRA RUVALCABA [facility] Address [address] [place] [address] Care Team Providers Care [place]par[place] Facilitator Name Role Phone NASRA RUVALCABA Unavailable PROBLEMS Type Condition ICD9-CM Code [id number] Code Onset Dates Condition Status SNOMED Code Problem Hematuria, unspecified type R31.9 Active 08518618 Problem Anxiety F41.9 Active 13637634 Problem Abnormal renal ultrasound R93.429 Active [id number] Problem Abnormal glucose R73.09 Active 632650552 Problem Chronic pain due to trauma G89.21 Active 318111685 Problem Hypokalemia E87.6 Active 73004432 Problem Neck pain M54.2 Active 88017427 Problem Neuroforaminal stenosis of spine M99.89 Active 017630835351 Problem Mixed hyperlipidemia E78.2 Active 59834630 Problem Essential hypertension I10 Active 68124852 ALLERGIES Substance Reaction Event Type Date Status Fluarix Quadrivalent rash Drug Allergy Mar, Active Zostavax rash Drug Allergy Mar, Active Macrobid rash Drug Allergy Mar, Active Iodine Unknown Drug Allergy Mar, Active Cipro hives Drug Allergy Mar, Active Bactrim hives Drug Allergy Mar, Active Baclofen Unknown Drug Allergy Mar, Active Amitriptyline HCl dizziness Drug Allergy Mar, Active Peanut Unknown Non Drug Allergy Mar, Active ENCOUNTERS Encounter Location Date Diagnosis [facility] [address] [facility] [id number] [address] Mar, UTI (urinary tract infection) N39.0 [facility] [id number] [address] Mar, Vertigo R42 [facility] [address] [facility] [id number] [address] Mar, Neuroforaminal stenosis of spine M99.89 [facility] [id number] [place] [address] 58448- 0826 Feb, Extensor tendon disruption M67.89 [facility] [id number] [place] [address] 09326- 9906 Feb, Neuroforaminal stenosis of spine M99.89 and High risk medication use Z79.899 [facility] [id number] [place] [address] 22460- 0529 Jan, Hypokalemia E87.6 [facility] [id number] [place] [address] 93984- 7301 Jan, Flank pain R10.9 and Acute right-sided low back pain without sciatica M54.5 [place] [address] 89471- 3005 Jan, Hypokalemia E87.6 [place] [address] 66189- 2248 Jan, [place] [address] 89011- 9254 Jan, URI, acute J06.9 [facility] [id number] [place] [address] 96508- 2528 05 Jan, 2018 Neuroforaminal stenosis of spine M99.89 [facility] [id number] [place] [address] 84399- 1295 13 Dec, 2017 Lateral epicondylitis, right elbow M77.11 [facility] [id number] [place] [address] 38598- 6523 11 Dec, 2017 Allergic rhinitis due to pollen, unspecified seasonality J30.1 and Allergic conjunctivitis of both eyes H10.13 [facility] [id number] [place] [address] 92539- 2297 10 Dec, 2017 Neuroforaminal stenosis of spine M99.89 [place] [address] 27895- 0089 Dec, Mixed hyperlipidemia E78.2 [place] [address] 693232- 8370 05 Dec, 2017 Abnormal glucose R73.09 ; Abnormal renal ultrasound R93.429 ; Dysuria R30.0 ; Cystitis without hematuria N30.90 ; Hypokalemia E87.6 ; Mixed hyperlipidemia E78.2 and Hematuria, unspecified type R31.9 [place] [address] 06295- 1993 Nov, Hypokalemia E87.6 ; Mixed hyperlipidemia E78.2 and Hematuria , unspecified type R31.9 [place] [address] 82514- 6323 Nov, [place] [address] 42818- 7758 Nov, Hypokalemia E87.6 [place] [address] 88878- 3082 Nov, [place] [address] 27443- 0940 Nov, Abnormal renal ultrasound R93.429 [place] [address] 90553- 7656 Nov, Abnormal renal ultrasound R93.429 [place] [address] 59406- 1861 Nov, Hematuria, unspecified type R31.9 and Neuroforaminal stenosis of spine M99.89 [place] [address] 69479- 2483 Nov, Dysuria R30.0 [place] [address] 56952- 5521 Oct, Lateral epicondylitis, right elbow M77.11 [place] [address] [place] [address] 4238 Oct, Neuroforaminal stenosis of spine M99.89 ; Visit for TB skin test Z11.1 and Essential hypertension I10 [facility] [id number] [place] [address] 34330- 1077 Oct, [place] [id number] [place] [address] 16872- 8942 Oct, Neuroforaminal stenosis of spine M99.89 [facility] [id number] [place] [address] 68238- 5533 10 Oct, 2017 Visit for TB skin test Z11.1 [place] [id number] [place] [address] 73002- 7134 05 Oct, 2017 Cystitis without hematuria N30.90 [facility] [facility] [id number] [place] [address] 71371- 7743 Sep, Screening breast examination Z12.39 [facility] [id number] [place] [address] 04697- 5314 Sep, Dysuria R30.0 and Cystitis without hematuria N30.90 [facility] [facility] [id number] [place] [address] 25222- 6923 Sep, Essential hypertension I10 and Neuroforaminal stenosis of spine M99.89 [facility] [facility] [id number] [place] [address] 45749- 7743 Sep, Abnormal glucose R73.09 [facility] [id number] [place] [address] 78435- 8785 August, Lateral epicondylitis, right elbow M77.11 [place] [id number] [place] [address] 30094- 2803 August, Screen for STD (sexually transmitted disease) Z11.3 [facility] [id number] [place] [address] 38199- 0412 August, Neuroforaminal stenosis of spine M99.89 ; Mixed hyperlipidemia E78.2 ; Elevated fasting glucose R73.01 ; Screening mammogram, encounter for Z12.31 and Encounter for well woman exam without gynecological exam Z00.00 [facility] [facility] [id number] [place] [address] 69571- 7728 August, Neuroforaminal stenosis of spine M99.89 [facility] [id number] [place] [address] 72499- 5998 August, Essential hypertension I10 ; Hypokalemia E87.6 and Mixed hyperlipidemia E78.2 [facility] [id number] [place] [address] 24793- 5646 Jul, [place] [address] 71593- 2680 Jul, Neuroforaminal stenosis of spine M99.89 [place] [address] 25396- 9125 Jul, Lateral epicondylitis, right elbow M77.11 [place] [address] 32082- 8509 Jul, [place] [address] 91964- 0676 Jun, High ankle sprain of right lower extremity, initial encounter S93.431A [facility] [facility] [id number] [place] [address] 90470- 4795 Jun, Essential hypertension I10 [facility] [id number] [place] [address] 26026- 6695 Jun, [place] [id number] [place] [address] 40671- 0049 Jun, [place] [id number] [place] [address] 09742- 4419 Jun, Neuroforaminal stenosis of spine M99.89 [facility] [address] 74034- 2965 Jun, Pain of right upper extremity M79.601 and Essential hypertension I10 [place] [address] 89696- 1893 Jun, [place] [address] 95857- 2583 Jun, Dysuria R30.0 ; Acute cystitis with hematuria N30.01 and Screen for STD (sexually transmitted disease) Z11.3 [place] [address] 77496- 4731 May, Chronic pain due to trauma G89.21 [place] [address] 58658- 9632 May, Essential hypertension I10 [address] 83633- 2760 May, Neuroforaminal stenosis of spine M99.[address] 19710- 4582 Apr, Allergic reaction, initial encounter T78.40XA [address] 58945- 0212 Apr, Low back pain, unspecified back pain laterality, unspecified chronicity, with sciatica presence unspecified M54.5 ; Acute cystitis with hematuria N30.01 ; Neuroforaminal stenosis of spine M99.89 ; Bilateral acute serous otitis media, recurrence not specified H65.03 ; Mixed hyperlipidemia E78.2 ; Essential hypertension I10 ; Immunization counseling Z71.89 and Encounter for immunization Z23 [place] [address] 85615- 8724 Apr, Neck pain M54.[address] 13094- 4269 Mar, Neuroforaminal stenosis of spine M99.89 [place] [address] 66353- 6664 Mar, Pharyngitis due to other organism J02.8 [facility] [id number] [place] [address] 95588- 1533 Feb, Neuroforaminal stenosis of spine M99.89 [facility] [id number] [place] [address] 60450- 0516 Feb, UTI (urinary tract infection) N39.0 [facility] [address] 83110- 2033 Feb, Recent urinary tract infection Z87.440 ; Neuroforaminal stenosis of spine M99.89 ; Neck pain M54.2 ; Chronic pain due to trauma G89.21 and Recurrent UTI N39.0 [facility] [id number] [place] [address] 14907- 2698 Feb, [facility] [id number] [place] [address] 38131- 4764 Jan, Neuroforaminal stenosis of spine M99.89 [facility] [id number] [place] [address] 15008- 5159 Dec, Neuroforaminal stenosis of spine M99.89 [facility] [id number] [place] [address] 17644- 4459 18 Dec, 2016 Acute seasonal allergic rhinitis due to pollen J30.1 [facility] [id number] [place] [address] 42336- 4921 Dec, [place] [id number] [place] [address] 30579- 7492 08 Dec, 2016 Acute seasonal allergic rhinitis, unspecified trigger J30.2 ; Allergic conjunctivitis of both eyes H10.13 and Dysfunction of both eustachian tubes H69.83 [facility] [id number] [place] [address] 50265- 7143 07 Dec, 2016 [facility] [id number] [place] [address] 14059- 4885 Dec, Nevus D22.9 [facility] [id number] [place] [address] 63912- 4292 Nov, Chronic pain due to trauma G89.21 and Neuroforaminal stenosis of spine M99.89 [facility] [id number] [place] [address] 87002- 0557 Nov, Neuroforaminal stenosis of spine M99.89 ; Essential hypertension I10 ; Mixed hyperlipidemia E78.2 ; Hypokalemia E87.6 ; Neck pain M54.2 and Nevus D22.9 [facility] [id number] [place] [address] 22611- 2671 Oct, Neuroforaminal stenosis of spine M99.89 [facility] [id number] [place] [address] 25472- 4509 Sep, Neuroforaminal stenosis of spine M99.89 [facility] [id number] [place] [address] 04089- 6192 Sep, [facility] [id number] [place] [address] 07374- 6436 August, [facility] [id number] [place] [address] 40213- 5139 August, Neck pain M54.2 and Neuroforaminal stenosis of spine M99.89 [facility] [id number] [place] [address] 12247- 4433 August, Routine gynecological examination Z01.419 and Screening breast examination Z12.39 [facility] [id number] [place] [address] 56517- 4042 Jul, [facility] [id number] [place] [address] 15747- 2979 Jul, [facility] [id number] [place] [address] 81371- 1926 Jul, Neuroforaminal stenosis of spine M99.89 [facility] [id number] [place] [address] 94666- 9315 Jul, [facility] [id number] [place] [address] 13172- 0160 Jul, 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 [facility] [id number] [place] [address] 67935- 8395 Jul, [facility] [id number] [place] [address] 92904- 1176 Jul, [facility] [id number] [place] [address] 13342- 2550 Jun, Neuroforaminal stenosis of spine M99.89 [place] [id number] [place] [address] 98625- 1954 Jun, Uterine leiomyoma, unspecified location D25.9 and Allergic reaction caused by a drug, initial encounter T78.40XA [facility] [id number] [place] [address] 25736- 0461 Jun, [place] [id number] [place] [address] 19409- 8881 May, UTI symptoms R39.9 and Pain of right sacroiliac joint M53.3 [place] [id number] [place] [address] 00144- 4350 May, Neuroforaminal stenosis of spine M99.89 [facility] [address] [place] [address] 43282- 2270 May, [place] [id number] [place] [address] 56670- 1752 May, Acute mucoid otitis media of left ear H65.112 and Acute non- recurrent maxillary sinusitis J01.00 [facility] [address] [address]- 1274 May, Acute bacterial conjunctivitis of both eyes H10.33 ; Left arm pain M79.602 and Hypokalemia E87.6 [place] [id number] [place] [address] 20131- 0015 Apr, [place] [id number] [place] [address] 08387- 4047 Apr, Neuroforaminal stenosis of spine M99.89 ; Neck pain M54.2 ; Chronic pain due to trauma G89.21 ; Mixed hyperlipidemia E78.2 ; Essential hypertension I10 and Hypokalemia E87.6 [place] [id number] [place] [address] 59332- 2155 Mar, Oral candidiasis B37.0 ; Neuroforaminal stenosis of spine M99.89 ; Neck pain M54.2 and Chronic pain due to trauma G89.21 [place] [id number] [place] [address] 33748- 3586 Feb, [place] [id number] [place] [address] 88915- 9285 Feb, [place] [id number] [place] [address] 62286- 4368 Feb, UTI (urinary tract infection) N39.0 [place] [id number] [place] [address] 06631- 1281 09 Feb, 2016 Dysuria R30.0 [place] [id number] [place] [address] 43762- 6510 Feb, Dysuria R30.0 [place] [address] [place] [address] 15154- 1447 02 Feb, 2016 Neuroforaminal stenosis of spine M99.89 ; Neck pain M54.2 ; Essential hypertension I10 ; Chronic pain due to trauma G89.21 ; Dysuria R30.0 ; Abnormal MRI, shoulder R93.8 and Acute cystitis without hematuria N30.00 [place] [id number] [place] [address] 92261- 3692 Jan, [facility] [address] [address]- 5609 Jan, [facility] [id number] [place] [address] 10451- 7164 Jan, [facility] [id number] [place] [address] 20356- 8282 Jan, Abnormal MRI R93.8 [facility] [id number] [place] [address] 13753- 7872 29 Dec, 2015 [facility] [id number] [place] [address] 28503 -8823 15 Dec, 2015 Acute pain of left shoulder M25.512 [facility] [id number] [place] [address] 56513- 1648 09 Dec, 2015 [facility] [id number] [place] [address] 38985- 8314 08 Dec, 2015 [facility] [id number] [place] [address] 71272- 8943 07 Dec, 2015 Acute pain of left shoulder M25.512 [facility] [id number] [place] [address] 78707- 9965 23 Nov, 2015 [facility] [id number] [place] [address] 19863- 2487 16 Nov, 2015 Neuroforaminal stenosis of spine M99.89 ; Neck pain M54.2 ; Abnormal mammogram R92.8 ; Essential hypertension I10 and Chronic pain due to trauma G89.21 [facility] [id number] [place] [address] 73718- 4239 Nov, [facility] [id number] [place] [address] 31891- 5808 Oct, Acute stress disorder F43.0 [facility] [id number] [place] [address] 67992- 4498 Oct, [place] [address] [address]- 7389 Oct, [facility] [address] [address]- 3941 Oct, [facility] [address] [address]- 4046 Sep, [facility] [id number] [place] [address] 14301- 1234 August, [facility] [address] [address]- 0273 Jul, Neuroforaminal stenosis of spine M99.89 ; Neck pain M54.2 ; Abnormal mammogram R92.8 and Essential hypertension I10 [facility] [address] [address]- 5602 Jul, [facility] [id number] [address]- 1265 Jul, [facility] [address] [address]- 8034 Jul, Abnormal mammogram R92.8 [facility] [id number] [place] [address] 49806- 1275 Jul, [facility] [address] [address]- 8226 Jul, UTI (urinary tract infection) N39.0 [facility] [address] [address]- 4620 Jul, Dysuria R30.0 [facility] [address] [address]- 2152 Jun, [facility] [address] [address]- 2531 Jun, [facility] [address] [address]- 6042 Jun, Hypokalemia E87.6 and Hematuria R31.9 [facility] [id number] [place] [address] 66672- 2520 Jun, Hypokalemia E87.6 [facility] [id number] [place] [address] 69542- 9719 Jun, [place] [id number] [place] [address] 84711- 5861 Jun, Hypokalemia E87.6 [facility] [id number] [place] [address] 19305- 4174 Jun, Hypokalemia E87.6 [facility] [id number] [place] [address] 37937- 9608 Jun, Neuroforaminal stenosis of spine M99.89 ; Hypokalemia E87.6 ; Neck pain M54.2 ; Essential hypertension I10 ; Mixed hyperlipidemia E78.2 and Screening breast examination Z12.39 [place] [id number] [place] [address] 07788- 4826 Jun, Dysuria R30.0 ; UTI (urinary tract infection) N39.0 and Hematuria R31.9 [facility] [id number] [place] [address] 84242- 1133 May, [facility] [id number] [place] [address] 26711- 3139 May, High risk sexual behavior Z72.51 ; Hypokalemia E87.6 ; Neuroforaminal stenosis of spine M99.89 ; Neck pain M54.2 ; Essential hypertension I10 ; Mixed hyperlipidemia E78.2 ; STD exposure Z20.2 and Concern about STD in female without diagnosis Z71.1 [facility] [facility] [id number] [place] [address] 89225- 0299 16 May, 2015 Neuroforaminal stenosis of spine M99.89 ; Neck pain M54.2 ; Hypokalemia E87.6 ; Essential hypertension I10 and Mixed hyperlipidemia E78.2 [facility] [id number] [place] [address] 85287- 7297 11 May, 2015 [facility] [id number] [place] [address] 96493 -1987 08 May, 2015 High risk sexual behavior Z72.51 ; STD exposure Z20.2 and Concern about STD in female without diagnosis Z71.1 [facility] [id number] [place] [address] 69255- 6569 May, [facility] [id number] [place] [address] 30055- 8016 Apr, Neuroforaminal stenosis of spine M99.89 ; Mixed hyperlipidemia E78.2 ; Essential hypertension I10 and Hypokalemia E87.6 [facility] [id number] [place] [address] 06621- 5735 Mar, [place] [id number] [place] [address] 84009- 1168 Mar, Hypokalemia E87.6 [place] [id number] [place] [address] 84722- 9166 Mar, Neuroforaminal stenosis of spine M99.89 ; Mixed hyperlipidemia E78.2 ; Neck pain M54.2 ; Essential hypertension I10 ; Abnormal fasting glucose R73.09 ; Hypokalemia E87.6 and Constipation K59.00 [place] [address] [place] [id number] [place] [address] 08858- 5562 Feb, Neuroforaminal stenosis of spine M99.89 ; Mixed hyperlipidemia E78.2 ; Neck pain M54.2 ; Essential hypertension I10 ; Abnormal fasting glucose R73.09 ; Hypokalemia E87.6 and Constipation K59.00 [place] [address] [place] [id number] [place] [address] [phone]- [phone] Feb, Elevated fasting blood sugar R73.01 [place] [address] [place] [id number] [place] [address] 51434- [phone] Feb, Elevated fasting blood sugar R73.01 [place] [address] [place] [id number] [place] [address] [id number]- 4310 Feb, Hair loss L65.9 [place] [address] [place] [id number] [place] [address] [phone]- 5781 Feb, Sinusitis J32.9 ; Essential hypertension I10 and Hair loss L65.9 [place] [address] [place] [id number] [place] [address] [phone]- 9563 Jan, [place] [address] [place] [id number] [place] [address] 74002- 0780 Jan, Essential hypertension I10 ; Neuroforaminal stenosis of spine M99.89 ; Neck pain M54.2 ; Mixed hyperlipidemia E78.2 and Anxiety F41.9 [place] [address] [place] [id number] [place] [address] [phone]- 3967 Jan, [place] [address] [place] [id number] [place] [address] 84940- 8616 Jan, Mixed hyperlipidemia E78.2 ; Essential (primary) hypertension I10 ; Strain of muscle, fascia and tendon at neck level, subsequent encounter S16.1XXD and Tension-type headache, unspecified, not intractable G44.209 [place] [address] [place] [id number] [place] [address] [phone]- 5756 Dec, Lumbar back pain 724.2 and Neuroforaminal stenosis of spine 724.00 [place] [address] [place] [id number] [place] [address] [phone]- 5461 Nov, [place] [address] 44952- 6401 Nov, Lumbar back pain 724.2 and Neuroforaminal stenosis of spine 724.00 [place] [address] [place] [id number] [place] [address] [phone]- 1346 Nov, Edema 782.3 ; Lumbar back pain 724.2 ; Essential hypertension, benign 401.1 ; Hyperlipemia 272.4 ; Neuroforaminal stenosis of spine 724.00 and Post-concussion headache 339.20 [place] [id number] [place] [address] 30510- 8045 Nov, [facility] [id number] [place] [address] 62901- 6618 Nov, [place] [id number] [place] [address] 30406- 2654 Oct, Essential hypertension, benign 401.1 [place] [id number] [place] [address] 01657- 9168 Oct, Edema 782.3 ; Lumbar back pain 724.2 ; Essential hypertension, benign 401.1 ; Hyperlipemia 272.4 ; Neuroforaminal stenosis of spine 724.00 and Post-concussion headache 339.20 [place] [id number] [place] [address] 44915- 6880 Oct, [place] [id number] [place] [address] 79655- 0332 Oct, Edema 782.3 [place] [id number] [place] [address] 31636- 0463 Oct, Lumbar back pain 724.2 [place] [id number] [place] [address] 28961- 1351 Oct, Cervicalgia 723.1 ; Lumbar back pain 724.2 and High risk medication use V58.69 [place] [id number] [place] [address] 94585- 3849 Sep, [place] [id number] [place] [address] 73537- 2391 Sep, Lumbar strain 847.2 [place] [id number] [place] [address] 77107- 3193 August, Edema 782.3 and Eustachian tube dysfunction 381.81 [place] [address] [address] 3326 August, [facility] [address] [address] August, Eustachian tube dysfunction 381.81 [facility] [id number] [place] [address] 2541 Jul, Otalgia 388.70 and Otitis media 382.9 [facility] [id number] [place] [address]- 1571 Jul, [facility] [id number] [place] [address]- 8851 Jul, [facility] [address] [address]- 7728 Jul, [facility] [address] [address]- 6116 Jul, [facility] [address] [address]- 4027 Jul, [facility] [address] [address]- 0378 Jun, [facility] [address] [address]- 7724 Jun, [facility] [address] [address]- 8040 16 Jun, 2014 [facility] [id number] [address]- 2259 May, [facility] [address] 0654 May, [facility] [id number] 3183 May, [facility] [id number] [address]- 7169 May, [facility] [place] [facility] [address] [id number] [place] [address]- 8651 May, [facility] [place] [facility] [address] [id number] [place] [address]- 3204 May, [facility] [place] [facility] [address] [id number] [place] [address]- 9771 May, [facility] [place] [facility] [address] [id number] [place] [address]- 6039 May, [facility] [place] [facility] [address] [id number] [place] [address]- 8777 May, [facility] [place] [facility] [address] [id number] [place] [address]- 0438 May, [facility] [place] [facility] [address] [id number] [place] [address]- 5834 Apr, [facility] [place] [facility] [address] [id number] [place] [address]- 3300 Apr, [facility] [place] [facility] [address] [id number] [place] [address]- 3920 Apr, [facility] [place] [facility] [address] [id number] [place] [address]- 6170 Apr, [facility] [place] [facility] [address] [id number] [place] [address]- 5684 Apr, [facility] [place] [facility] [address] [id number] [address]- 0252 Apr, [facility] [place] [facility] [address] [id number] [place] [address]- 5945 Apr, [facility] [place] [facility] [address] [id number] [place] [address]- 2560 Apr, [facility] [place] [facility] [address] [id number] [place] [address]- 1798 Apr, [facility] [place] [facility] [address] [id number] [place] [address]- 9813 Apr, [facility] [place] [facility] [address] [id number] [place] [address]- 6128 Apr, [facility] [place] [facility] [address] [id number] [place] [address]- 3818 Apr, [facility] [place] [facility] [address] [id number] [place] [address]- 5669 Apr, [facility] [place] [facility] [address] [id number] [place] [address]- 2915 Apr, [facility] [place] [facility] [address] [id number] [place] [address]- 5361 Apr, [facility] [place] [facility] [address] [id number] [place] [address]- 0281 Mar, [facility] [place] [facility] [address] [id number] [place] [address]- 8490 Mar, [facility] [place] [facility] [address] [id number] [place] [address]- 2891 Mar, [facility] [place] [facility] [address] [id number] [place] [address]- 3959 Mar, [facility] [place] [facility] [address] [id number] [place] [address]- 3194 Feb, [facility] [place] [facility] [address] [id number] [place] [address]- 4803 Feb, [facility] [place] [facility] [address] [id number] [place] [address]- 5922 Feb, [facility] [place] [facility] [address] [id number] [place] [address]- 9090 Feb, [facility] [place] [facility] [address] [id number] [place] [address]- 8409 Jan, [facility] [place] [facility] [address] [id number] [place] [address]- 4443 Jan, [facility] [place] [facility] [address] [id number] [place] [address]- 5525 Jan, [facility] [place] [facility] [address] [id number] [place] [address]- 8195 Jan, [facility] [place] [facility] [address] [id number] [place] [address]- 8763 Jan, [facility] [place] [facility] [address] [id number] [place] [address]- 0472 Jan, [facility] [place] [facility] [address] [id number] [place] [address]- 5611 Jan, [facility] [place] [facility] [address] [id number] [place] [address]- 4014 Jan, [facility] [place] [facility] [address] [id number] [place] [address]- 5166 Dec, [facility] [place] [facility] [address] [id number] [place] [address]- 0198 Dec, [facility] [place] [facility] [address] [id number] [place] [address]- 3590 Dec, [facility] [place] [facility] [address] [id number] [place] [address]- 1193 Dec, [facility] [place] [facility] [address] [id number] [place] [address]- 0900 Oct, [facility] [place] [facility] [address] [id number] [place] [address]- 8487 Oct, [facility] [place] [facility] [address] [id number] [place] [address]- 6759 Oct, [facility] [place] [facility] [address] [id number] [place] [address]- 8735 Oct, [facility] [place] [facility] [address] [id number] [place] [address]- 4246 Oct, [facility] [place] [facility] [address] [id number] [place] [address]- 3277 Oct, [facility] [place] [facility] [address] [id number] [place] [address]- 9005 Oct, [facility] [place] [facility] [address] [id number] [place] [address]- 4426 Oct, [facility] [place] [facility] [address] [id number] [place] [address]- 4001 Sep, [facility] [place] [facility] [address] [id number] [place] [address]- 7693 Sep, [facility] [place] [facility] [address] [id number] [place] [address]- 1409 Sep, [facility] [place] [facility] [address] [id number] [place] [address]- 6959 Sep, [facility] [place] [facility] [address] [id number] [place] [address]- 8394 Sep, [facility] [place] [facility] [address] [id number] [place] [address]- 1192 Sep, [facility] [place] [facility] [address] [id number] [place] [address]- 0062 Sep, [facility] [place] [facility] [address] [id number] [place] [address]- 0524 Sep, [facility] [place] [facility] [address] [id number] [place] [address]- 3738 Sep, [facility] [place] [facility] [address] [id number] [place] [address]- 7381 Sep, [facility] [place] [facility] [address] [id number] [place] [address]- 9055 August, [facility] [place] [facility] [address] [id number] [place] [address]- 7968 August, [facility] [place] [facility] [address] [id number] [place] [address]- 8606 August, [facility] [place] [facility] [address] [id number] [place] [address]- 4719 August, [facility] [address] [id number] [place] [address]- 3000 August, [facility] [address] [id number] [place] [address]- 1518 August, [facility] [address] [id number] [place] [address]- 5528 August, [facility] [address] [id number] [place] [address]- 2412 August, [facility] [address] [id number] [place] [address]- 6853 August, [facility] [address] [id number] [place] [address]- 1442 August, [facility] [address] [id number] [place] [address]- 4744 August, [facility] [address] [id number] [place] [address]- 5465 August, [facility] [address] [id number] [place] [address]- 8436 Jul, [facility] [address] [id number] [place] [address]- 8805 Jul, [facility] [place] [facility] [address] [id number] [place] [address]- 0718 Jul, [facility] [address] [id number] [place] [address]- 5518 Jul, [facility] [place] [facility] [address] [id number] [place] [address]- 6077 Jul, [facility] [place] [facility] [address] [id number] [place] [address]- 7330 Jul, [facility] [place] [facility] [address] [id number] [place] [address]- 2903 Jun, [facility] [place] [facility] [address] [id number] [place] [address]- 8947 Jun, [facility] [place] [facility] [address] [id number] [place] [address]- 9666 May, [facility] [place] [facility] [address] [id number] [place] [address]- 7413 May, [facility] [place] [facility] [address] [id number] [place] [address]- 2175 Apr, [facility] [place] [facility] [address] [id number] [place] [address]- 7042 Apr, [facility] [place] [facility] [address] [id number] [place] [address]- 5767 Apr, [facility] [place] [facility] [address] [id number] [place] [address]- 9216 Apr, [facility] [place] [facility] [address] [id number] [place] [address]- 9986 Apr, [facility] [place] [facility] [address] [id number] [place] [address]- 7192 Apr, [facility] [place] [facility] [address] [id number] [place] [address]- 3963 Apr, [facility] [place] [facility] [address] [id number] [place] [address]- 4129 Apr, [facility] [place] [facility] [address] [id number] [place] [address]- 0054 Apr, [facility] [place] [facility] [address] [id number] [place] [address]- 9392 Apr, [facility] [place] [facility] [address] [id number] [place] [address]- 3707 Apr, [facility] [place] [facility] [address] [id number] [place] [address]- 1519 Apr, [facility] [place] [facility] [address] [id number] [place] [address]- 2937 Apr, [facility] [place] [facility] [address] [id number] [place] [address]- 0631 10 Mar, 2013 [facility] [place] [facility] [address] [id number] [place] [address]- 6831 Mar, [facility] [place] [facility] [address] [id number] [place] [address]- 0280 Mar, [facility] [place] [facility] [address] [id number] [place] [address]- 6012 Mar, [facility] [place] [facility] [address] [id number] [place] [address]- 4801 Feb, [facility] [place] [facility] [address] [id number] [place] [address]- 1821 Feb, [facility] [place] [facility] [address] [id number] [place] [address]- 8389 Feb, [facility] [place] [facility] [address] [id number] [place] [address]- 2486 Feb, [facility] [place] [facility] [address] [id number] [place] [address]- 2923 14 Jan, 2013 [facility] [place] [facility] [address] [id number] [place] [address]- 9430 14 Jan, 2013 [facility] [place] [facility] [address] [id number] [place] [address]- 0938 11 Jan, 2013 [facility] [place] [facility] [address] [id number] [place] [address]- 3948 11 Jan, 2013 [facility] [place] [facility] [address] [id number] [place] [address]- 8083 10 Jan, 2013 [facility] [place] [facility] [address] [id number] [place] [address]- 0297 10 Jan, 2013 [facility] [place] [facility] [address] [id number] [place] [address]- 3905 09 Jan, 2013 [facility] [place] [facility] [address] [id number] [place] [address]- 9334 Jan, [facility] [place] [facility] [address] [id number] [place] [address]- 1986 Jan, [facility] [place] [facility] [address] [id number] [place] [address]- 5775 Dec, [facility] [place] [facility] [address] [id number] [place] [address]- 8074 Dec, [facility] [place] [facility] [address] [id number] [place] [address]- 9721 16 Dec, 2012 [facility] [place] [facility] [address] [id number] [place] [address]- 9079 Dec, [facility] [place] [facility] [address] [id number] [place] [address]- 3445 Nov, [facility] [place] [facility] [address] [id number] [place] [address]- 4684 Nov, [facility] [place] [facility] [address] [id number] [place] [address]- 6295 Nov, [facility] [place] [facility] [address] [id number] [place] [address]- 5306 Nov, [facility] [place] [facility] [address] [id number] [place] [address]- 0267 Oct, [facility] [place] [facility] [address] [id number] [place] [address]- 1152 Sep, [facility] [place] [facility] [address] [id number] [place] [address]- 5874 August, [facility] [place] [facility] [address] [id number] [place]28 August, [facility] [place] [facility] [address] [id number] [place] [address]- 3887 August, [facility] [place] [facility] [address] [id number] [place] [address]- 1814 August, [facility] [address] [id number] [place] [address]- 7201 August, [facility] [address] [id number] [place] [address]- 7635 August, [facility] [address] [id number] [place] [address]- 9826 August, [facility] [address] [id number] [place] [address]- 8768 August, [facility] [address] [id number] [place] [address]- 5870 August, [facility] [address] [id number] [place] [address]- 0811 August, [facility] [address] [id number] [place] [address]- 7962 August, [facility] [address] [id number] [place] [address]- 6723 August, [facility] [address] [id number] [place] [address]- 0712 Jul, [facility] [address] [id number] [place] [address]- 0925 Jul, [facility] [address] [id number] [place] [address]- 3604 18 Jul, 2012 [facility] [place] [facility] [address] [id number] [place] [address]- 0624 15 Jul, 2012 [facility] [place] [facility] [address] [id number] [place] [address]- 6511 Jul, [facility] [place] [facility] [address] [id number] [place] [address]- 1254 Jul, [facility] [place] [facility] [address] [id number] [place] [address]- 6942 Jul, [facility] [address] [id number] [place] [address]- 0212 Jul, [facility] [address] [id number] [place] [address]- 3804 Jul, [facility] [place] [facility] [address] [id number] [place] [address] 2546 Jul, [facility] [address] [id number] [place] [address]- 2486 Jul, [facility] [place] [facility] [address] [id number] [place] [address]- 9423 Jun, [facility] [address] [id number] [place] [address]- 9127 Jun, [facility] [place] [facility] [address] [facility] [id number] [place] [address]- 0916 Jun, [facility] [address] [facility] [id number] [place] [address]- 2483 Jun, [facility] [address] [id number] [place] [address]- 6101 May, [facility] [address] [id number] [place] [address]- 9097 May, [facility] [address] [facility] [id number] [place] [address]- 2546 May, [facility] [place] [facility] [address] [facility] [id number] [place] [address]- 2546 May, [facility] [place] [facility] [address] [id number] [place] [address]- 2546 May, [facility] [place] [facility] [address] [id number] [place] [address]- 2546 May, [facility] [place] [facility] [address] [facility] [id number] [place] [address]- 2546 Apr, [facility] [place] [facility] [address] [facility] [id number] [place] [address]- 2870 31 Apr, 2012 [facility] [place] [facility] [address] [id number] [place] [address]- 7343 30 Apr, 2012 [facility] [place] [facility] [address] [id number] [place] [address]- 7269 28 Apr, 2012 [facility] [place] [facility] [address] [id number] [place] 7396 15 Mar, 2012 [facility] [place] [facility] [address] [id number] [place] [address]- 6608 14 Mar, 2012 [facility] [place] [facility] [address] [id number] [place] [address] 14 Mar, 2012 [facility] [place] [facility] [address] [id number] [place] [address] 14 Mar, 2012 [facility] [place] [facility] [address] [id number] [place] [address] Mar, [facility] [place] [facility] [address] [id number] [place] [address] 06 Mar, 2012 [facility] [place] [facility] [address] [id number] [place] [address] Mar, [facility] [place] [facility] [address] [id number] [place] [address] Feb, [facility] [place] [facility] [address] [id number] [place] [address] Feb, [facility] [place] [facility] [address] [id number] [place] [address] Feb, [facility] [place] [facility] [address] [id number] [place] [address] Feb, [facility] [place] [facility] [address] [id number] [place] [address] Jan, [facility] [place] [facility] [address] [id number] [place] [address] Jan, [facility] [place] [facility] [address] [id number] [place] [address] 10 Jan, 2012 [facility] [place] [facility] [address] [id number] [place] [address] Jan, [facility] [place] [facility] [address] [id number] [place] [address] Jan, [facility] [place] [facility] [address] [id number] [place] [address] Jan, [facility] [place] [facility] [address] [id number] [place] [address] Dec, [facility] [place] [facility] [address] [id number] [place] [address] Dec, [facility] [place] [facility] [address] [id number] [place] [address] Nov, [facility] [place] [facility] [address] [id number] [place] [address] Sep, [facility] [place] [facility] [address] [id number] [place] [address] August, [facility] [place] [facility] [address] [id number] [place] [address] August, [facility] [place] [facility] [address] [id number] [place] [address] August, [facility] [place] [facility] [address] [id number] [place] [address] August, [facility] [place] [facility] [address] [id number] [place] [address] August, [facility] [place] [facility] [address] [id number] [place] [address] Jun, [facility] [place] [facility] [address] [id number] [place] [address] Jun, [facility] [place] [facility] [address] [id number] [place] [address]69 Apr, [facility] [place] [facility] [address] [id number] [place] [address] Apr, [facility] [place] [facility] [address] [id number] [place] [address] 23 Mar, 2011 [facility] [place] [facility] [address] [id number] [place] [address] Feb, [facility] [place] [facility] [address] [id number] [place] [address] 14 Feb, 2011 [facility] [place] [facility] [address] [id number] [place] [address] 14 Feb, 2011 [facility] [place] [facility] [address] [id number] [place] [address] 17 Jan, 2011 [facility] [place] [facility] [address] [id number] [place] [address] 15 Jan, 2011 [facility] [place] [facility] [address] [id number] [place] [address] 15 Jan, 2011 [facility] [place] [facility] [address] [id number] [place] [address] 14 Jan, 2011 [facility] [place] [facility] [address] [id number] [place] [address] 15 May, 2010 [facility] [place] [facility] [address] [id number] [place] [address] 04 Mar, 2010 [facility] [place] [facility] [address] [id number] [place] [address] Oct, [facility] [place] [facility] [address] [id number] [place] [address] 14 Sep, 2009 [facility] [place] [facility] [address] [id number] [place] [address] Mar, [facility] [place] [facility] [address] [id number] [place] [address] 27 Jan, 2009 [facility] [place] [facility] [address] [id number] [place] [address] Jan, [facility] [address] [facility] [id number] [place] [address] May, IMMUNIZATIONS No Known Immunizations SOCIAL HISTORY Never Assessed REASON FOR VISIT UTI symptoms x1day - no burning / constantly urinating kpage gonzalez PLAN OF CARE Activity Details Follow Up Regular appt Reason: VITAL SIGNS Height 62 in 2018-03-30 Weight 179.3 lbs 2018-03-30 Temperature 97.8 degrees Fahrenheit 2018-03-30 Heart Rate 112 bpm 2018-03-30 Respiratory Rate 20 2018-03-30 BMI 32.79 kg/m2 2018-03-30 Blood pressure systolic 136 mmHg 2018-03-30 Blood pressure diastolic 84 mmHg 2018-03-30 MEDICATIONS Medication Instructions Dosage Frequency Start Date End Date Duration Status Klor-Con 10 10 MEQ Orally twice a day 1 tablet 12h Active Amlodipine Besylate 5 mg Orally Once a day 1 tablet 24h 30 days Active Triamterene-HCTZ 37.5-25 MG Orally Once a day 1 tablet in the morning 24h 30 Active Pravastatin Sodium 40 MG Orally Once a day TAKE ONE TABLET BY MOUTH AT BEDTIME 24h 30 Active Meclizine HCl 25 MG Orally Once a day 1 tablet as needed 24h Active Levaquin 500 MG Orally Once a day 1 tablet 24h Mar, 3 days Active Hydrocodone-Acetaminophen 5-325 MG Orally 3 -4 times a day prn. must last 4 weeks 1 tablet as needed Mar, 28 days Active Cyclobenzaprine HCl 10 mg Orally Three times a day 1 tablet as needed 8h Active Naproxen 500 mg Orally every 12 hrs 1 tablet with food or milk as needed 12h 30 Active RESULTS Name Result Date Reference Range UA LONG DIP (IN HOUSE) 2018-03-30 Lot # [id number] Exp date 07/2018 Clarity clear Color yellow Odor no GLU neg JUNIOR neg KET neg SG 1.015 BLO trace pH 7.5 Protein neg URO 0.2 NIT neg YENY 3+ Lot # Exp date PROCEDURES Procedure Date Ordered Result Body Site URINALYSIS, AUTO, W/O SCOPE Mar 30, 2018 INSTRUCTIONS MEDICATIONS ADMINISTERED No Known Medications MEDICAL [...]
--- OUTSIDE RECORDS SUMMARY | 2018-06-10 05:13 | XMS REPORT ---
Author Author KING BETI [facility] Address [address] [place] [address] Care Team Providers Care It Systems Administrator Name Role Phone BETI STAUFFER Unavailable PROBLEMS Type Condition ICD9-CM Code ZQT31-JK Code Onset Dates Condition Status SNOMED Code Problem Hematuria, unspecified type R31.9 Active 15251697 Problem Anxiety F41.9 Active 68604840 Problem Abnormal renal ultrasound R93.429 Active 63080787073073677 Problem Abnormal glucose R73.09 Active 238728996 Problem Chronic pain due to trauma G89.21 Active 400154149 Problem Hypokalemia E87.6 Active 33576595 Problem Neck pain M54.2 Active 52964547 Problem Neuroforaminal stenosis of spine M99.89 Active 846656305085 Problem Mixed hyperlipidemia E78.2 Active 07240940 Problem Essential hypertension I10 Active 17839491 ALLERGIES Substance Reaction Event Type Date Status [...] Mar, Active ENCOUNTERS Encounter Location Date Diagnosis [facility] [address] [facility] [id number] [address] Mar, Vertigo R42 [facility] [address] [id number] [address] Mar, Neuroforaminal stenosis of spine M99.89 [facility] [address] [facility] [id number], [place] [address] Feb, Extensor tendon disruption M67.89 [place] [id number] [place] [address] 48199- 3851 02 Feb, 2018 Neuroforaminal stenosis of spine M99.89 and High risk medication use Z79.899 [place] [address] 49965- 7059 Jan, Hypokalemia E87.6 [place] [address] 20069- 0137 Jan, Flank pain R10.9 and Acute right-sided low back pain without sciatica M54.5 [place] [address] 74066- 5032 Jan, Hypokalemia E87.6 [place] [address] 02436- 0179 Jan, [place] [address] 12756- 3033 Jan, URI, acute J06.9 [place] [address] 88826- 3328 05 Jan, 2018 Neuroforaminal stenosis of spine M99.89 [place] [address] 53139- 5437 13 Dec, 2017 Lateral epicondylitis, right elbow M77.11 [place] [address] 54441- 5742 11 Dec, 2017 Allergic rhinitis due to pollen, unspecified seasonality J30.1 and Allergic conjunctivitis of both eyes H10.13 [place] [address] 21056- 3195 10 Dec, 2017 Neuroforaminal stenosis of spine M99.89 [place] [address] 59525- 8281 06 Dec, 2017 Mixed hyperlipidemia E78.2 [place] [address] 26388- 4406 Dec, Abnormal glucose R73.09 ; Abnormal renal ultrasound R93.429 ; Dysuria R30.0 ; Cystitis without hematuria N30.90 ; Hypokalemia E87.6 ; Mixed hyperlipidemia E78.2 and Hematuria, unspecified type R31.9 [place] [id number] [place] [address] 48193- 9334 Nov, Hypokalemia E87.6 ; Mixed hyperlipidemia E78.2 and Hematuria , unspecified type R31.9 [place] [id number] [place] [address] 77421- 8133 Nov, [place] [address] 74816- 0284 Nov, Hypokalemia E87.6 [place] [id number] [place] [address] 60658- 5174 Nov, [place] [id number] [place] [address] 08252- 3253 Nov, Abnormal renal ultrasound R93.429 [place] [address] 55936- 8261 Nov, Abnormal renal ultrasound R93.429 [place] [id number] [place] [address] 36308- 5506 Nov, Hematuria, unspecified type R31.9 and Neuroforaminal stenosis of spine M99.89 [place] [id number] [place] [address] 27966- 0001 Nov, Dysuria R30.0 [place] [address] 55056- 4369 Oct, Lateral epicondylitis, right elbow M77.11 [place] [id number] [place] [address] 24881- 0109 Oct, Neuroforaminal stenosis of spine M99.89 ; Visit for TB skin test Z11.1 and Essential hypertension I10 [place] [id number] [place] [address] 58107- 4148 16 Oct, 2017 [place] [address] 92265- 9170 12 Oct, 2017 Neuroforaminal stenosis of spine M99.89 [place] [id number] [place] [address] 98373- 0497 10 Oct, 2017 Visit for TB skin test Z11.1 [place] [id number] [place] [address] 33253- 3728 05 Oct, 2017 Cystitis without hematuria N30.90 [place] [address] 72485- 2498 28 Sep, 2017 Screening breast examination Z12.39 [place] [id number] [place] [address] 29141- 3837 26 Sep, 2017 Dysuria R30.0 and Cystitis without hematuria N30.90 [place] [id number] [place] [address] 15900- 9805 14 Sep, 2017 Essential hypertension I10 and Neuroforaminal stenosis of spine M99.89 [place] [id number] [place] [address] 02567- 2366 04 Sep, 2017 Abnormal glucose R73.09 [place] [id number] [place] [address] 87014- 9819 August, Lateral epicondylitis, right elbow M77.11 [place] [id number] [place] [address] 64350- 2842 August, Screen for STD (sexually transmitted disease) Z11.3 [place] [id number] [place] [address] 97997- 9782 August, Neuroforaminal stenosis of spine M99.89 ; Mixed hyperlipidemia E78.2 ; Elevated fasting glucose R73.01 ; Screening mammogram, encounter for Z12.31 and Encounter for well woman exam without gynecological exam Z00.00 [place] [id number] [place] [address] 37143- 8783 August, Neuroforaminal stenosis of spine M99.89 [place] [address] 93672- 0819 August, Essential hypertension I10 ; Hypokalemia E87.6 and Mixed hyperlipidemia E78.2 [place] [address] 80526- 3239 Jul, [place] [address] 13766- 1625 Jul, Neuroforaminal stenosis of spine M99.89 [place] [address] 34060- 2523 Jul, Lateral epicondylitis, right elbow M77.11 [place] [address] 16226- 5852 Jul, [place] [address] 92166- 9696 Jun, High ankle sprain of right lower extremity, initial encounter S93.431A [place] [id number] [place] [address] 94029- 5089 Jun, Essential hypertension I10 [place] [id number] [place] [address] 64447- 3452 Jun, [place] [id number] [place] [address] 19470- 4175 Jun, [place] [id number] [place] [address] 62856- 9766 Jun, Neuroforaminal stenosis of spine M99.89 [facility] [id number] [place] [address] 78310- 0426 Jun, Pain of right upper extremity M79.601 and Essential hypertension I10 [place] [address] 08283- 1361 Jun, [place] [id number] [place] [address] 10527- 2539 Jun, Dysuria R30.0 ; Acute cystitis with hematuria N30.01 and Screen for STD (sexually transmitted disease) Z11.3 [place] [id number] [place] [address] 14218- 4072 May, Chronic pain due to trauma G89.21 [place] [id number] [place] [address] 64280- 3483 May, Essential hypertension I10 [address] 62444- 9038 May, Neuroforaminal stenosis of spine M99.89 [place] [id number] [place] [address] 91006- 2282 Apr, Allergic reaction, initial encounter T78.40XA [place] [id number] [place] [address] 87351- 8796 Apr, Low back pain, unspecified back pain laterality, unspecified chronicity, with sciatica presence unspecified M54.5 ; Acute cystitis with hematuria N30.01 ; Neuroforaminal stenosis of spine M99.89 ; Bilateral acute serous otitis media, recurrence not specified H65.03 ; Mixed hyperlipidemia E78.2 ; Essential hypertension I10 ; Immunization counseling Z71.89 and Encounter for immunization Z23 [place] [id number] [place] [address] 06707- 7232 Apr, Neck pain M54.2 [place] [id number] [place] [address] 70709- 0166 Mar, Neuroforaminal stenosis of spine M99.89 [place] [id number] [place] [address] 69324- 8610 Mar, Pharyngitis due to other organism J02.8 [place] [id number] [place] [address] 02598- 0682 Feb, Neuroforaminal stenosis of spine M99.89 [facility] [id number] [place] [address] 45325- 0286 Feb, UTI (urinary tract infection) N39.0 [facility] [id number] [place] [address] 95173- 0587 Feb, Recent urinary tract infection Z87.440 ; Neuroforaminal stenosis of spine M99.89 ; Neck pain M54.2 ; Chronic pain due to trauma G89.21 and Recurrent UTI N39.0 [facility] [id number] [place] [address] 85514- 8564 Feb, [facility] [id number] [place] [address] 12032- 0162 Jan, Neuroforaminal stenosis of spine M99.89 [facility] [id number] [place] [address] 74502- 1441 Dec, Neuroforaminal stenosis of spine M99.89 [facility] [address] [place] [address] 57961- 4639 Dec, Acute seasonal allergic rhinitis due to pollen J30.1 [facility] [id number] [place] [address] 82848- 9497 Dec, [facility] [id number] [place] [address] 67562- 7766 Dec, Acute seasonal allergic rhinitis, unspecified trigger J30.2 ; Allergic conjunctivitis of both eyes H10.13 and Dysfunction of both eustachian tubes H69.83 [facility] [id number] [place] [address] 05284- 1597 Dec, [facility] [id number] [place] [address] 94363- 9114 Dec, Nevus D22.9 [facility] [id number] [place] [address] 54097- 5229 Nov, Chronic pain due to trauma G89.21 and Neuroforaminal stenosis of spine M99.89 [facility] [id number] [place] [address] 07012- 9079 Nov, Neuroforaminal stenosis of spine M99.89 ; Essential hypertension I10 ; Mixed hyperlipidemia E78.2 ; Hypokalemia E87.6 ; Neck pain M54.2 and Nevus D22.9 [facility] [id number] [place] [address] 82909- 0677 Oct, Neuroforaminal stenosis of spine M99.89 [facility] [id number] [place] [address] 00675- 1413 Sep, Neuroforaminal stenosis of spine M99.89 [facility] [id number] [place] [address] 92282- 3491 Sep, [facility] [id number] [place] [address] 50831- 3913 August, [facility] [id number] [place] [address] 67873- 5265 August, Neck pain M54.2 and Neuroforaminal stenosis of spine M99.89 [facility] [address], [place] [address]- 8191 August, Routine gynecological examination Z01.419 and Screening breast examination Z12.39 [facility] [id number] [place] [address] 92342- 9334 Jul, [facility] [id number] [place] [address] 34776- 5044 Jul, [facility] [id number] [place] [address] 50664- 3093 Jul, Neuroforaminal stenosis of spine M99.89 [facility] [address], [place] [address]- 9668 Jul, [facility] [id number] [place] [address] 80360- 0150 Jul, 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 [place] [id number] [place] [address] 41683- 7177 Jul, [place] [id number] [place] [address] 02857- 4471 Jul, [place] [id number] [place] [address] 42136- 3679 Jun, Neuroforaminal stenosis of spine M99.89 [place] [address] 26450- 7149 Jun, Uterine leiomyoma, unspecified location D25.9 and Allergic reaction caused by a drug, initial encounter T78.40XA [place] [id number] [place] [address] 53488- 4496 Jun, [place] [id number] [place] [address] 87732- 4959 May, UTI symptoms R39.9 and Pain of right sacroiliac joint M53.3 [place] [id number] [place] [address] 09857- 6697 May, Neuroforaminal stenosis of spine M99.89 [place] [id number] [place] [address] 32397- 5091 May, [place] [id number] [place] [address] 46357- 2427 May, Acute mucoid otitis media of left ear H65.112 and Acute non- recurrent maxillary sinusitis J01.00 [place] [id number] [place] [address] 36799- 2318 May, Acute bacterial conjunctivitis of both eyes H10.33 ; Left arm pain M79.602 and Hypokalemia E87.6 [place] [id number] [place] [address] 15292- 3649 Apr, [facility] [id number] [place] [address] 91562- 8258 Apr, Neuroforaminal stenosis of spine M99.89 ; Neck pain M54.2 ; Chronic pain due to trauma G89.21 ; Mixed hyperlipidemia E78.2 ; Essential hypertension I10 and Hypokalemia E87.6 [place] [id number] [place] [address] 90635- 8297 Mar, Oral candidiasis B37.0 ; Neuroforaminal stenosis of spine M99.89 ; Neck pain M54.2 and Chronic pain due to trauma G89.21 [place] [id number] [place] [address] 47513- 5823 Feb, [place] [id number] [place] [address] 24824- 1833 Feb, [facility] [id number] [place] [address] 17114- 8044 Feb, UTI (urinary tract infection) N39.0 [place] [id number] [place] [address] 96208- 1700 Feb, Dysuria R30.0 [place] [id number] [place] [address] 91375- 8336 Feb, Dysuria R30.0 [facility] [id number] [place] [address] 80669- 8445 Feb, Neuroforaminal stenosis of spine M99.89 ; Neck pain M54.2 ; Essential hypertension I10 ; Chronic pain due to trauma G89.21 ; Dysuria R30.0 ; Abnormal MRI, shoulder R93.8 and Acute cystitis without hematuria N30.00 [facility] [address] [place] [address] 62407- 6563 Jan, [facility] [id number] [place] [address] 17160- 6452 Jan, [place] [address], [place] [address]- 2771 Jan, [facility] [id number] [place] [address] 29506- 5343 Jan, Abnormal MRI R93.8 [facility] [address] [place] [address] 41053- 2110 29 Dec, 2015 [facility] [id number] [place] [address] 35804 -7923 15 Dec, 2015 Acute pain of left shoulder M25.512 [facility] [id number] [place] [address] 71111- 0089 09 Dec, 2015 [facility] [id number] [place] [address] 00926- 8405 08 Dec, 2015 [facility] [id number] [place] [address] 87559- 8457 07 Dec, 2015 Acute pain of left shoulder M25.512 [facility] [id number] [place] [address] 61467- 0520 Nov, [facility] [id number] [place] [address] 79412- 4414 16 Nov, 2015 Neuroforaminal stenosis of spine M99.89 ; Neck pain M54.2 ; Abnormal mammogram R92.8 ; Essential hypertension I10 and Chronic pain due to trauma G89.21 [facility] [id number] [place] [address] 94874- 6289 Nov, [facility] [id number] [place] [address] 00884- 3172 Oct, Acute stress disorder F43.0 [facility] [id number] [place] [address] 87206- 4456 Oct, [facility] [id number] [place] [address] 24155- 9253 Oct, [facility] [id number] [address]- 9023 Oct, [facility] [address], [place] [address]- 0175 Sep, [facility] [address], [place] [address]- 3133 August, [facility] [address] [place] [address] 85293- 3993 Jul, Neuroforaminal stenosis of spine M99.89 ; Neck pain M54.2 ; Abnormal mammogram R92.8 and Essential hypertension I10 [facility] [address] [place] [address] 64169- 9370 Jul, [facility] [id number] [place] [address] 13638- 9754 Jul, [facility] [id number] [place] [address] 73218- 8154 Jul, Abnormal mammogram R92.8 [facility] [address], [place] [address]- 7940 Jul, [facility] [id number] [place] [address] 34256- 5761 Jul, UTI (urinary tract infection) N39.0 [facility] [address], [place] [address]- 1943 Jul, Dysuria R30.0 [facility] [address], [place] [address]- 6158 Jun, [facility] [address], [place] [address]- 2333 Jun, [facility] [address] [place] [address] 65876- 4134 Jun, Hypokalemia E87.6 and Hematuria R31.9 [facility] [address], [place] [address]- 2569 Jun, Hypokalemia E87.6 [place] [address], [place] [address]- 0389 Jun, [place] [id number] [place] [address] 10744- 7562 Jun, Hypokalemia E87.6 [place] [id number] [place] [address] 99931- 7442 Jun, Hypokalemia E87.6 [place] [id number] [place] [address] 55483- 3844 Jun, Neuroforaminal stenosis of spine M99.89 ; Hypokalemia E87.6 ; Neck pain M54.2 ; Essential hypertension I10 ; Mixed hyperlipidemia E78.2 and Screening breast examination Z12.39 [place] [id number] [place] [address] 50254- 2801 Jun, Dysuria R30.0 ; UTI (urinary tract infection) N39.0 and Hematuria R31.9 [place] [id number] [place] [address] 49421- 8252 May, [place] [id number] [place] [address] 32282- 1836 May, High risk sexual behavior Z72.51 ; Hypokalemia E87.6 ; Neuroforaminal stenosis of spine M99.89 ; Neck pain M54.2 ; Essential hypertension I10 ; Mixed hyperlipidemia E78.2 ; STD exposure Z20.2 and Concern about STD in female without diagnosis Z71.1 [place] [address] [place] [address] 28593- 6200 16 May, 2015 Neuroforaminal stenosis of spine M99.89 ; Neck pain M54.2 ; Hypokalemia E87.6 ; Essential hypertension I10 and Mixed hyperlipidemia E78.2 [place] [address], [place] [address]- 3691 May, [facility] [address], [place] [address] -4442 08 May, 2015 High risk sexual behavior Z72.51 ; STD exposure Z20.2 and Concern about STD in female without diagnosis Z71.1 [facility] [address] [place] [address] 83017- 2944 05 May, 2015 [place] [id number] [place] [address] 96764- 5099 Apr, Neuroforaminal stenosis of spine M99.89 ; Mixed hyperlipidemia E78.2 ; Essential hypertension I10 and Hypokalemia E87.6 [place] [id number] [place] [address] 56365- 8441 Mar, [place] [id number] [place] [address] 53264- 0947 Mar, Hypokalemia E87.6 [place] [id number] [place] [address] 22359- 0670 Mar, Neuroforaminal stenosis of spine M99.89 ; Mixed hyperlipidemia E78.2 ; Neck pain M54.2 ; Essential hypertension I10 ; Abnormal fasting glucose R73.09 ; Hypokalemia E87.6 and Constipation K59.00 [place] [address] [place] [address] 02877- 9990 Feb, Neuroforaminal stenosis of spine M99.89 ; Mixed hyperlipidemia E78.2 ; Neck pain M54.2 ; Essential hypertension I10 ; Abnormal fasting glucose R73.09 ; Hypokalemia E87.6 and Constipation K59.00 [place] [id number] [place] [address] 74392- 6984 Feb, Elevated fasting blood sugar R73.01 [place] [id number] [place] [address] 66105- 6548 Feb, Elevated fasting blood sugar R73.01 [place] [id number] [place] [address] 90219- 9532 Feb, Hair loss L65.9 [place] [id number] [place] [address] 56439- 4468 Feb, Sinusitis J32.9 ; Essential hypertension I10 and Hair loss L65.9 [place] [id number] [place] [address] 49015- 1309 Jan, [place] [address] 50190- 6167 Jan, Essential hypertension I10 ; Neuroforaminal stenosis of spine M99.89 ; Neck pain M54.2 ; Mixed hyperlipidemia E78.2 and Anxiety F41.9 [place] [id number] [place] [address] 87806- 4319 Jan, [place] [id number] [place] [address] 62394- 0456 Jan, Mixed hyperlipidemia E78.2 ; Essential (primary) hypertension I10 ; Strain of muscle, fascia and tendon at neck level, subsequent encounter S16.1XXD and Tension-type headache, unspecified, not intractable G44.209 [facility] [id number] [place] [address] 12226- 0406 Dec, Lumbar back pain 724.2 and Neuroforaminal stenosis of spine 724.00 [facility] [id number] [place] [address] 99345- 6209 Nov, [facility] [id number] [place] [address] 02313- 4794 Nov, Lumbar back pain 724.2 and Neuroforaminal stenosis of spine 724.00 [facility] [id number] [place] [address] 46757- 6392 Nov, Edema 782.3 ; Lumbar back pain 724.2 ; Essential hypertension, benign 401.1 ; Hyperlipemia 272.4 ; Neuroforaminal stenosis of spine 724.00 and Post-concussion headache 339.20 [facility] [id number] [address] Nov, [facility] [id number] [place] [address] 67312- 5373 Nov, [facility] [id number] [place] [address] 07015- 2105 Oct, Essential hypertension, benign 401.1 [facility] [id number] [place] [address] 97823- 5050 Oct, Edema 782.3 ; Lumbar back pain 724.2 ; Essential hypertension, benign 401.1 ; Hyperlipemia 272.4 ; Neuroforaminal stenosis of spine 724.00 and Post-concussion headache 339.20 [facility] [id number] [place] [address] 95281- 3243 Oct, [facility] [id number] [place] [address] 99334- 4616 Oct, Edema 782.3 [facility] [id number] [place] [address] 56605- 7819 Oct, Lumbar back pain 724.2 [facility] [id number] [place] [address] 38955- 4044 Oct, Cervicalgia 723.1 ; Lumbar back pain 724.2 and High risk medication use V58.69 [facility] [id number] [place] [address] 34639- 4540 Sep, [facility] [id number] [place] [address] 59641- 9689 Sep, Lumbar strain 847.2 [facility] [id number] [place] [address] 37727- 7913 August, Edema 782.3 and Eustachian tube dysfunction 381.81 [facility] [id number] [place] [address] 29087- 3939 August, [facility] [id number] [place] [address] [place] [address]- 4472 August, Eustachian tube dysfunction 381.81 [facility] [id number] [place] [address] 1323 Jul, Otalgia 388.70 and Otitis media 382.9 [facility] [id number] [address] 65[address] Jul, [facility] [id number] [place] [address]- 1817 Jul, [facility] [id number], [place] [address] 8624 Jul, [facility] [id number] [place] [address] 79242- 0788 Jul, [facility] [id number] [address] 5484 Jul, [facility] [id number] [place] [address] 16645- 7453 Jun, [facility] [id number], [place] [address] 5771 Jun, [facility] [id number], [place] [address] 9152 Jun, [facility] [id number], [place] [address] 4555 May, [facility] [place] [facility] [id number], [place] [address] 6028 May, [facility] [place] [facility] [id number] [address] 7334 May, [facility] [place] [facility] [id number], [place] [address]- 9383 May, [facility] [place] [facility] [id number], [place] [address]- 8182 May, [facility] [place] [facility] [id number] [place] [address] 3750 May, [facility] [place] [facility] [address] [id number] [place] [address]- 4727 May, [facility] [place] [facility] [address] [id number] [place] [address]- 7246 May, [facility] [place] [facility] [address] [id number] [place] [address]- 3086 May, [facility] [place] [facility] [address] [id number] [place] [address]- 6397 May, [facility] [place] [facility] [address] [id number] [place] [address]- 2108 Apr, [facility] [place] [facility] [address] [id number] [place] [address]- 6530 Apr, [facility] [place] [facility] [address] [id number] [place] [address]- 8553 Apr, [facility] [place] [facility] [address] [id number] [place] [address]- 7709 Apr, [facility] [place] [facility] [address] [id number] [place] [address]- 9503 Apr, [facility] [place] [facility] [address] [id number] [place] [address]- 4912 Apr, [facility] [place] [facility] [address] [id number] [place] [address]- 9627 Apr, [facility] [place] [facility] [address] [id number] [place] [address]- 2188 Apr, [facility] [place] [facility] [address] [id number] [place] [address]- 2079 Apr, [facility] [place] [facility] [address] [id number] [place] [address]- 8621 Apr, [facility] [place] [facility] [address] [id number] [place] [address]- 0164 Apr, [facility] [place] [facility] [address] [id number] [place] [address]- 2767 Apr, [facility] [place] [facility] [address] [id number] [place] [address]- 9012 Apr, [facility] [place] [facility] [address] [id number] [place] [address]- 3567 Apr, [facility] [place] [facility] [address] [id number] [place] [address]- 5074 Apr, [facility] [place] [facility] [address] [id number] [place] [address]- 8663 Mar, [facility] [place] [facility] [address] [id number] [place] 1422 Mar, [facility] [place] [facility] [address] [id number] [place] [address]- 9561 Mar, [facility] [place] [facility] [address] [id number] [place] [address]- 7079 Mar, [facility] [place] [facility] [address] [id number] [place] [address]- 6879 Feb, [facility] [place] [facility] [address] [id number] [place] [address]- 2308 Feb, [facility] [place] [facility] [address] [id number], [place] [address]- 2061 Feb, [facility] [place] [facility] [address] [id number], [place] [address]- 2594 Feb, [facility] [place] [facility] [address] [id number] [place] [address]- 8196 Jan, [facility] [place] [facility] [address] [id number], [place] [address]- 5961 Jan, [facility] [place] [facility] [address] [id number], [place] [address]- 8078 Jan, [facility] [place] [facility] [address] [id number] [place] [address]- 8126 Jan, [facility] [place] [facility] [address] [id number] [place] [address]- 7053 Jan, [facility] [place] [facility] [address] [id number] [place] 4533 Jan, [facility] [place] [facility] [address] [id number] [place] [address]- 5470 Jan, [facility] [place] [facility] [address] [id number] [place] [address]- 3887 Jan, [facility] [place] [facility] [address] [id number] [place] [address]- 2593 Dec, [facility] [place] [facility] [address] [id number] [place] [address]- 1639 Dec, [facility] [place] [facility] [address] [id number] [place] [address]- 1995 Dec, [facility] [place] [facility] [address] [id number] [place] [address]- 9829 Dec, [facility] [place] [facility] [address] [id number] [place] [address]- 4403 Oct, [facility] [place] [facility] [address] [id number] [place] [address]- 9112 Oct, [facility] [place] [facility] [address] [id number] [place] [address]- 0856 Oct, 2013 [facility] [place] [facility] [address] [id number] [place] [address]- 5386 Oct, 2013 [facility] [place] [facility] [address] [id number] [place] [address]- 9203 Oct, [facility] [place] [facility] [address] [id number] [place] [address]- 4181 Oct, 2013 [facility] [place] [facility] [address] [id number] [place] 2896 Oct, [facility] [place] [facility] [address] [id number] [place] [address]- 7699 Oct, [facility] [place] [facility] [address] [id number] [place] [address]- 0325 Sep, [facility] [place] [facility] [address] [id number] [place] [address]- 3431 Sep, [facility] [place] [facility] [address] [id number] [place] [address]- 8513 Sep, [facility] [place] [facility] [address] [id number] [place] [address]- 7418 Sep, [facility] [place] [facility] [address] [id number] [place] [address]- 2051 Sep, [facility] [place] [facility] [address] [id number] [place] [address]- 0121 Sep, [facility] [place] [facility] [address] [id number] [place] [address]- 0434 Sep, [facility] [place] [facility] [address] [id number] [place] [address]- 0153 Sep, [facility] [place] [facility] [address] [id number] [place] [address]- 4355 Sep, [facility] [place] [facility] [address] [id number] [place] [address]- 3490 Sep, [facility] [place] [facility] [address] [id number] [place] [address]- 7733 August, [facility] [place] [facility] [address] [id number] [place] [address]- 8803 August, [facility] [place] [facility] [address] [id number] [place] [address]- 0683 August, [facility] [place] [facility] [address] [id number] [place] [address]- 1738 August, [facility] [place] [facility] [address] [id number] [place] [address]- 7623 August, [facility] [place] [facility] [address] [id number] [place] [address]- 8249 August, [facility] [place] [facility] [address] [id number] [place] [address]- 4770 August, [facility] [place] [facility] [address] [id number] [place] [address]- 6512 August, [facility] [place] [facility] [address] [id number] [place] [address]- 4124 August, [facility] [place] [facility] [address] [id number] [place] [address]- 0178 August, [facility] [place] [facility] [address] [id number] [place] [address]- 9286 August, [facility] [place] [facility] [address] [id number] [place] [address]- 5133 August, [facility] [place] [facility] [address] [id number] [place] [address]- 6962 Jul, [facility] [place] [facility] [address] [id number] [place] [address]- 1774 Jul, [facility] [place] [facility] [address] [id number] [place] [address]- 1812 Jul, [facility] [place] [facility] [address] [id number] [place] [address]- 8974 Jul, [facility] [place] [facility] [address] [id number] [place] [address]- 8949 Jul, [facility] [place] [facility] [address] [id number] [place] [address]- 8152 Jul, [facility] [place] [facility] [address] [id number] [place] [address]- 0161 Jun, [facility] [place] [facility] [address] [id number] [place] [address]- 7009 Jun, [facility] [place] [facility] [address] [id number] [place] [address]- 4248 10 May, 2013 [facility] [address] [id number] [place] [address]- 5771 May, [facility] [place] [facility] [address] [id number] [place] [address]- 0276 Apr, [facility] [address] [id number] [place] [address]- 4802 Apr, [facility] [place] [facility] [address] [id number] [place] [address]- 8145 Apr, [facility] [address] [id number] [place] [address]- 5526 Apr, [facility] [address] [id number] [place] [address]- 3526 Apr, [facility] [address] [id number] [place] [address]- 9483 Apr, [facility] [address] [id number] [place] [address]- 9251 Apr, [facility] [address] [id number] [place] [address]- 0232 Apr, [facility] [address] [id number] [place] [address]- 1145 Apr, [facility] [place] [facility] [address] [id number] [place] [address]- 5847 Apr, [facility] [place] [facility] [address] [id number] [place] [address]- 8473 Apr, [facility] [place] [facility] [address] [id number] [place] [address]- 4496 Apr, [facility] [place] [facility] [address] [id number] [place] [address]- 2286 Apr, [facility] [place] [facility] [address] [id number] [place] [address]- 0221 Mar, [facility] [place] [facility] [address] [id number] [place] [address]- 9816 Mar, [facility] [place] [facility] [address] [id number] [place] [address]- 9816 Mar, [facility] [place] [facility] [address] [id number] [place] [address]- 1182 Mar, [facility] [place] [facility] [address] [id number] [place] [address]- 2603 Feb, [facility] [place] [facility] [address] [id number] [place] [address]- 8783 Feb, [facility] [place] [facility] [address] [id number] [place] [address]- 7791 Feb, [facility] [place] [facility] [address] [id number] [place] [address]- 3904 Feb, [facility] [place] [facility] [address] [id number], [place] [address]- 1780 Jan, [facility] [place] [facility] [address] [id number] [place] [address]- 8714 Jan, [facility] [place] [facility] [address] [id number], [place] [address]- 4942 Jan, [facility] [place] [facility] [address] [id number], [place] [address]- 0618 Jan, [facility] [place] [facility] [address] [id number], [place] [address]- 6787 Jan, [facility] [place] [facility] [address] [id number], [place] [address]- 2012 Jan, [facility] [place] [facility] [address] [id number], [place] [address]- 0999 Jan, [facility] [place] [facility] [address] [id number], [place] [address]- 6970 Jan, [facility] [place] [facility] [address] [id number] [place] [address]- 0567 Jan, [facility] [address] [id number] [place] [address]- 2656 26 Dec, 2012 [facility] [place] [facility] [address] [id number] [place] [address]- 7591 16 Dec, 2012 [facility] [address] [id number] [place] [address]- 5986 16 Dec, 2012 [facility] [place] [facility] [address] [id number] [place] [address]- 1934 13 Dec, 2012 [facility] [address] [id number] [place] [address]- 9849 Nov, [facility] [place] [facility] [address] [id number] [place] [address]- 2951 Nov, [facility] [address] [id number] [place] [address]- 7741 Nov, [facility] [address] [id number] [place] [address]- 6793 Nov, [facility] [address] [id number] [place] [address]- 9838 Oct, [facility] [address] [id number] [place] [address]- 2189 Sep, [facility] [place] [facility] [address] [id number] [place] [address]- 7676 August, [facility] [place] [facility] [address] [id number] [place] [address]- 0362 August, [facility] [place] [facility] [address] [id number] [place] [address]- 5344 August, [facility] [place] [facility] [address] [id number] [place] [address]- 8464 August, [facility] [place] [facility] [address] [id number] [place] [address]- 7225 August, [facility] [place] [facility] [address] [id number] [place] [address]- 7583 August, [facility] [address] [id number] [place] [address]- 8078 August, [facility] [address] [id number] [place] [address]- 4481 August, [facility] [address] [id number] [place] [address]- 9417 August, [facility] [address] [id number] [place] [address]- 5673 August, [facility] [address] [id number] [place] [address]- 8163 August, [facility] [address] [id number] [place] [address]- 0879 August, [facility] [address] [id number] [place] [address]- 4028 Jul, [facility] [address] [id number] [place] [address]- 4727 Jul, [facility] [address] [id number] [place] [address]- 1699 Jul, [facility] [address] [id number] [place] [address]- 6313 Jul, [facility] [address] [id number] [place] [address]- 2866 Jul, [facility] [address] [id number] [place] [address]- 9554 Jul, [facility] [address] [id number] [place] [address]- 5847 Jul, [facility] [address] [id number] [place] [address]- 6908 Jul, [facility] [address] [id number] [place] [address]- 2583 Jul, [facility] [place] [facility] [address] [id number] [place] [address]- 5530 Jul, [facility] [place] [facility] [address] [facility] [id number] [place] [address]- 7316 Jul, [facility] [place] [facility] [address] [facility] [id number] [place] [address]- 8288 Jun, [facility] [place] [facility] [address] [id number] [place] [address]- 4184 Jun, [facility] [place] [facility] [address] [id number] [place] [address]- 2161 Jun, [facility] [place] [facility] [address] [facility] [id number] [place] [address]- 4487 Jun, [facility] [address] [facility] [id number] [place] [address]- 6500 May, [facility] [place] [facility] [address] [id number] [place] [address]- 0307 May, [facility] [place] [facility] [address] [id number] [place] [address]- 5874 May, [facility] [place] [facility] [address] [facility] [id number] [place] [address]- 0102 May, [facility] [place] [facility] [address] [facility] [id number] [place] [address]- 3948 May, [facility] [place] [facility] [address] [facility] [id number] [place] [address]- 2546 May, [facility] [place] [facility] [address] [facility] [id number] [place] [address]- 5766 Apr, [facility] [place] [facility] [address] [facility] [id number] [place] [address] 2546 Apr, [facility] [place] [facility] [address] [facility] [id number] [place] [address]- 6565 Apr, [facility] [place] [facility] [address] [id number] [place] [address]- 1782 Apr, [facility] [place] [facility] [address] [id number] [place] [address]- 2926 15 Mar, 2012 [facility] [place] [facility] [address] [id number] [place] [address]- 0766 14 Mar, 2012 [facility] [place] [facility] [address] [id number] [place] [address]- 6996 14 Mar, 2012 [facility] [place] [facility] [address] [id number] [place] [address]- 3454 Mar, [facility] [place] [facility] [address] [id number] [place] [address]- 5288 Mar, [facility] [place] [facility] [address] [id number] [place] 0498 Mar, [facility] [place] [facility] [address] [id number] [place] [address]- 3575 Mar, [facility] [place] [facility] [address] [id number] [place] [address]- 0881 Feb, [facility] [place] [facility] [address] [id number] [place] [address]- 8113 Feb, [facility] [place] [facility] [address] [id number] [place] [address]- 8498 Feb, [facility] [place] [facility] [address] [id number] [place] [address]- 8933 Feb, [facility] [place] [facility] [address] [id number] [place] [address]- 5645 Jan, [facility] [place] [facility] [address] [id number] [place] [address]- 7846 11 Jan, 2012 [facility] [place] [facility] [address] [id number] [place] 8174 10 Jan, 2012 [facility] [place] [facility] [address] [id number] [place] [address]- 3683 Jan, [facility] [place] [facility] [address] [id number] [place] [address]- 9683 Jan, [facility] [place] [facility] [address] [id number] [place] [address]- 1346 Jan, [facility] [place] [facility] [address] [id number] [place] [address] Dec, [facility] [place] [facility] [address] [id number] [place] [address] Dec, [facility] [place] [facility] [address] [id number] [place] [address] Nov, [facility] [place] [facility] [address] [id number] [place] [address] Sep, [facility] [place] [facility] [address] [id number] [place] [address] August, [facility] [place] [facility] [address] [id number] [place] [address] August, [facility] [place] [facility] [address] [id number] [place] [address] August, [facility] [place] [facility] [address] [id number] [place] [address] August, [facility] [place] [facility] [address] [id number], [place] [address] August, [facility] [place] [facility] [address] [id number], [place] [address] Jun, [facility] [place] [facility] [address] [id number] [place] [address] Jun, [facility] [place] [facility] [address] [id number] [place] [address] Apr, [facility] [place] [facility] [address] [id number] [place] [address] Apr, [facility] [place] [facility] [address] [id number] [place] [address] 23 Mar, 2011 [facility] [address] [id number] [place] [address] Feb, [facility] [address] [id number] [place] [address] 14 Feb, 2011 [facility] [address] [facility] [id number] [place] [address] 14 Feb, 2011 [facility] [place] [facility] [address] [id number] [place] [address] 17 Jan, 2011 [facility] [address] [facility] [id number] [place] [address], [place] [address] 15 Jan, 2011 [facility] [address] [facility] [id number] [place] [address] 15 Jan, 2011 [facility] [address] [facility] [id number] [place] [address] 14 Jan, 2011 [facility] [address] [facility] [id number], [place] [address] 15 May, 2010 [facility] [address] [facility] [id number] [place] [address] Mar, [facility] [address] [facility] [id number], [place] [address] Oct, [facility] [address] [facility] [id number], [place] [address] Sep, [facility] [address] [facility] [id number], [place] [address] Mar, [facility] [address] [facility] [id number], [place] [address] Jan, [facility] [place] [facility] [address] [facility] [id number] [place] [address] Jan, [facility] [address] [facility] [id number], [place] [address] May, IMMUNIZATIONS No Known Immunizations SOCIAL HISTORY Never Assessed REASON FOR VISIT Dizziness, has vertigo and is on melcizine but it isn't working Janki Lazaro MA PLAN OF CARE Activity Details Follow Up if not improving with PCP or reg follow up Reason:vertigo Pending Test CT Scan : Brain w/o Contrast VITAL SIGNS Height 62 in 2018-03-16 Weight 181.2 lbs 2018-03-16 Temperature 97.3 degrees Fahrenheit 2018-03-16 Heart Rate 98 bpm 2018-03-16 Respiratory Rate 93 2018-03-16 BMI 33.14 kg/m2 2018-03-16 Blood pressure systolic 124 mmHg 2018-03-16 Blood pressure diastolic 72 mmHg 2018-03-16 MEDICATIONS Medication Instructions Dosage Frequency Start Date End Date Duration Status Hydrocodone-Acetaminophen 5-325 MG Orally 3 -4 times a day prn. must last 4 weeks 1 tablet as needed Mar, 28 days Active Klor-Con 10 10 MEQ Orally twice a day 1 tablet 12h Active Amlodipine Besylate 5 mg Orally Once a day 1 tablet 24h 30 days Active Cyclobenzaprine HCl 10 mg Orally Three times a day 1 tablet as needed 8h Active Triamterene-HCTZ 37.5-25 MG Orally Once a day 1 tablet in the morning 24h 30 Active Meclizine HCl 25 MG Orally Once a day 1 tablet as needed 24h Active Pravastatin Sodium 40 MG Orally Once a day TAKE ONE TABLET BY MOUTH AT BEDTIME 24h 30 Active Naproxen 500 mg Orally every 12 hrs 1 tablet with food or milk as needed 12h 30 Active RESULTS No Results PROCEDURES Procedure Date Ordered Result Body Site COMPREHEN METABOLIC PANEL Mar 16, 2018 COMPLETE CBC W/AUTO DIFF WBC Mar 16, 2018 VENIPUNCT, ROUTINE* Mar 16, 2018 INSTRUCTIONS MEDICATIONS ADMINISTERED No Known Medications MEDICAL (GENERAL) HISTORY Type Description Date Medical History hypertension Medical History Colposcopy with loop electrode excision of the cervix was performed 06/2012, mild squamous atypia (no definite dyplasia). Performed at [facility] Dr. Joy. Medical History Acute suppurative [...] sometime in the . Surgical History colonoscopy 1-19-16 Hospitalization History hospitalizations for surgeries only
--- OUTSIDE RECORDS SUMMARY | 2018-06-10 05:13 | XMS REPORT ---
Author Author KING BET[facility] Address [address] [place] [address] Care Team Providers Care Business Reporter Name Role Phone BETI STAUFFER Unavailable PROBLEMS Type Condition ICD9-CM Code FAR90-KB Code Onset Dates Condition Status SNOMED Code Problem Hematuria, unspecified type R31.9 Active 07392754 Problem Anxiety F41.9 Active 91553116 Problem Abnormal renal ultrasound R93.429 Active [id number] Problem Abnormal glucose R73.09 Active 476368861 Problem Chronic pain due to trauma G89.21 Active 056012769 Problem Hypokalemia E87.6 Active 75799553 Problem Neck pain M54.2 Active 07302326 Problem Neuroforaminal stenosis of spine M99.89 Active 601383911626 Problem Mixed hyperlipidemia E78.2 Active 53891193 Problem Essential hypertension I10 Active 10717419 ALLERGIES No Information ENCOUNTERS Encounter Location Date Diagnosis [place] [id number] [address]- [address] Mar, Neuroforaminal stenosis of spine M99.89 [place] [address] 32085- 3124 Feb, Extensor tendon disruption M67.89 [place] [address] 98647- 6711 Feb, Neuroforaminal stenosis of spine M99.89 and High risk medication use Z79.899 [place] [address] 63681- 0005 Jan, Hypokalemia E87.6 [place] [address] 03698- 7721 Jan, Flank pain R10.9 and Acute right-sided low back pain without sciatica M54.5 [place] [address] 93798- 8460 Jan, Hypokalemia E87.6 [place] [address] [place] [id number]- [address] Jan, [place] [address] 11701- 6896 Jan, URI, acute J06.9 [place] [address] 80642- 7302 05 Jan, 2018 Neuroforaminal stenosis of spine M99.89 [place] [address] 44818 1903 13 Dec, 2017 Lateral epicondylitis, right elbow M77.11 [place] [address] 078272- 8271 11 Dec, 2017 Allergic rhinitis due to pollen, unspecified seasonality J30.1 and Allergic conjunctivitis of both eyes H10.13 [place] [address] 62618- 3059 10 Dec, 2017 Neuroforaminal stenosis of spine M99.89 [place] [address] 21205- 6346 06 Dec, 2017 Mixed hyperlipidemia E78.2 [place] [address] 88849- 8039 05 Dec, 2017 Abnormal glucose R73.09 ; Abnormal renal ultrasound R93.429 ; Dysuria R30.0 ; Cystitis without hematuria N30.90 ; Hypokalemia E87.6 ; Mixed hyperlipidemia E78.2 and Hematuria, unspecified type R31.9 [place] [address] [place] [id number]- 9998 Nov, Hypokalemia E87.6 ; Mixed hyperlipidemia E78.2 and Hematuria , unspecified type R31.9 [place] [address] [place] [address] 37[address] Nov, [facility] [address] [place] [id number] [place] [address] 76211- 3473 Nov, Hypokalemia E87.6 [facility] [address] [place] [id number] [place] [address] 69922- 8005 Nov, [facility] [address] [place] [id number] [place] [address] 46459- 4962 Nov, Abnormal renal ultrasound R93.429 [place] [address] [place] [id number] [place] [address] 56715- 6892 Nov, Abnormal renal ultrasound R93.429 [place] [address] [place] [id number] [place] [address] 18520- 3455 Nov, Hematuria, unspecified type R31.9 and Neuroforaminal stenosis of spine M99.89 [place] [address] [place] [id number] [place] [address] 39832- 6597 Nov, Dysuria R30.0 [place] [address] [place] [id number] [place] [address] 93058- 6047 Oct, Lateral epicondylitis, right elbow M77.11 [place] [address] [place] [id number] [place] [address] 16378- 2015 Oct, Neuroforaminal stenosis of spine M99.89 ; Visit for TB skin test Z11.1 and Essential hypertension I10 [place] [address] [place] [id number] [place] [address] 11972- 9824 Oct, [place] [address] [place] [id number] [place] [address] 96448- 7224 Oct, Neuroforaminal stenosis of spine M99.89 [place] [address] [place] [id number] [place] [address] 78587- 0302 Oct, Visit for TB skin test Z11.1 [place] [address] [place] [id number] [place] [address] 82290- 7490 Oct, Cystitis without hematuria N30.90 [place] [address] [place] [id number] [place] [address] 08785- 0875 Sep, Screening breast examination Z12.39 [place] [address] 11381- 5005 26 Sep, 2017 Dysuria R30.0 and Cystitis without hematuria N30.90 [place] [address] 22723- 6798 14 Sep, 2017 Essential hypertension I10 and Neuroforaminal stenosis of spine M99.89 [place] [address] 84529- 4431 Sep, Abnormal glucose R73.09 [place] [address] 12322- 8022 August, Lateral epicondylitis, right elbow M77.11 [place] [address] 39406- 1255 August, Screen for STD (sexually transmitted disease) Z11.3 [place] [address] 29240- 0502 August, Neuroforaminal stenosis of spine M99.89 ; Mixed hyperlipidemia E78.2 ; Elevated fasting glucose R73.01 ; Screening mammogram, encounter for Z12.31 and Encounter for well woman exam without gynecological exam Z00.00 [place] [address] [place] [id number] [place] [address] 91326- 0622 August, Neuroforaminal stenosis of spine M99.89 [place] [address] 88045- 9206 August, Essential hypertension I10 ; Hypokalemia E87.6 and Mixed hyperlipidemia E78.2 [place] [address] [place] [id number] [place] [address] 05592- 4846 Jul, [place] [address] [place] [address]- 0539 Jul, Neuroforaminal stenosis of spine M99.89 [place] [address] 18471- 9208 Jul, Lateral epicondylitis, right elbow M77.11 [place] [address] [place] [id number] [place] [address] 37418- 5340 Jul, [place] [address] 86804- 6381 Jun, High ankle sprain of right lower extremity, initial encounter S93.431A [place] [address] 89047 9103 Jun, Essential hypertension I10 [place] [address] 91586- 9467 Jun, [place] [address] 86623- 8294 Jun, [place] [address] 86242- 4021 Jun, Neuroforaminal stenosis of spine M99.89 [place] [address] [place] [id number] [place] [address] 82087- 5981 Jun, Pain of right upper extremity M79.601 and Essential hypertension I10 [place] [address] [place] [id number] [place] [address] 37616- 0469 Jun, [place] [address] 48915- 6344 Jun, Dysuria R30.0 ; Acute cystitis with hematuria N30.01 and Screen for STD (sexually transmitted disease) Z11.3 [place] [address] [place] [id number] [place] [address] 55365- 6576 May, Chronic pain due to trauma G89.21 [place] [address] 27781- 5255 May, Essential hypertension I10 [place] [address] [place] [id number] [place] [address] 52434- 6464 May, Neuroforaminal stenosis of spine M99.89 [place] [address] [place] [id number] [place] [address] 43916- 7576 Apr, Allergic reaction, initial encounter T78.40XA [place] [address] 82868- 8892 Apr, Low back pain, unspecified back pain laterality, unspecified chronicity, with sciatica presence unspecified M54.5 ; Acute cystitis with hematuria N30.01 ; Neuroforaminal stenosis of spine M99.89 ; Bilateral acute serous otitis media, recurrence not specified H65.03 ; Mixed hyperlipidemia E78.2 ; Essential hypertension I10 ; Immunization counseling Z71.89 and Encounter for immunization Z23 [place] [id number] [place] [address] 15076- 5208 Apr, Neck pain M54.2 [place] [address] [place] [id number] [place] [address] 92781- 2005 Mar, Neuroforaminal stenosis of spine M99.89 [place] [address] [place] [id number] [place] [address] 95911- 4934 Mar, Pharyngitis due to other organism J02.8 [place] [address] [place] [id number] [place] [address] 56815- 8596 Feb, Neuroforaminal stenosis of spine M99.89 [place] [address] [place] [id number] [place] [address] 58509- 1116 08 Feb, 2017 UTI (urinary tract infection) N39.0 [place] [address] [place] [id number] [place] [address] 69279- 3238 07 Feb, 2017 Recent urinary tract infection Z87.440 ; Neuroforaminal stenosis of spine M99.89 ; Neck pain M54.2 ; Chronic pain due to trauma G89.21 and Recurrent UTI N39.0 [facility] [address] [place] [id number] [place] [address] 32619- 2258 Feb, [facility] [address] [place] [id number] [place] [address] 93792- 2049 Jan, Neuroforaminal stenosis of spine M99.89 [facility] [address] [place] [id number] [place] [address] 31546- 5747 28 Dec, 2016 Neuroforaminal stenosis of spine M99.89 [facility] [address] [place] [id number] [place] [address] 91936- 9833 18 Dec, 2016 Acute seasonal allergic rhinitis due to pollen J30.1 [place] [address] 94748- 5396 08 Dec, 2016 [place] [address] 60513- 5204 Dec, Acute seasonal allergic rhinitis, unspecified trigger J30.2 ; Allergic conjunctivitis of both eyes H10.13 and Dysfunction of both eustachian tubes H69.83 [place] [address] [place] [id number] [place] [address] 37361- 8726 Dec, [place] [address] [place] [id number] [place] [address] 67087- 5958 Dec, Nevus D22.9 [facility] [address] [place] [id number] [place] [address] 74635- 2308 Nov, Chronic pain due to trauma G89.21 and Neuroforaminal stenosis of spine M99.89 [facility] [address] [place] [id number] [place] [address] 68780- 8775 Nov, Neuroforaminal stenosis of spine M99.89 ; Essential hypertension I10 ; Mixed hyperlipidemia E78.2 ; Hypokalemia E87.6 ; Neck pain M54.2 and Nevus D22.9 [facility] [address] [place] [id number] [place] [address] 03507- 5836 Oct, Neuroforaminal stenosis of spine M99.89 [facility] [address] [id number] [address]- 1766 Sep, Neuroforaminal stenosis of spine M99.89 [facility] [address] [facility] [id number] [place] [address]- 1556 Sep, [facility] [id number] [place] [address] 46844- 0346 August, [facility] [address] [id number] [place] [address] 06704 2547 August, Neck pain M54.2 and Neuroforaminal stenosis of spine M99.89 [facility] [address] [id number] [place] [address] 76353- 1335 August, Routine gynecological examination Z01.419 and Screening breast examination Z12.39 [facility] [address] [id number] [place] [address] 18363- 1836 Jul, [facility] [address] [id number] [place] [address] 39340- 5701 Jul, [facility] [address] [facility] [id number] [place] [address] 94060- 0303 Jul, Neuroforaminal stenosis of spine M99.89 [facility] [address] [id number] [address] 2541 Jul, [facility] [address] 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 [id number] [place] [address] 44015- 2545 Jul, [facility] [address] [facility] [id number] [address]- 7048 Jun, Neuroforaminal stenosis of spine M99.89 [place] [address] [place] [id number] [place] [address] 88342- 8417 Jun, Uterine leiomyoma, unspecified location D25.9 and Allergic reaction caused by a drug, initial encounter T78.40XA [place] [address] [place] [id number] [place] [address] 90756- 2112 Jun, [place] [address] 95440- 8588 May, UTI symptoms R39.9 and Pain of right sacroiliac joint M53.[address] 40130- 0382 May, Neuroforaminal stenosis of spine M99.89 [place] [address] [place] [id number] [place] [address] 81866- 4597 May, [place] [address] 17577- 8438 May, Acute mucoid otitis media of left ear H65.112 and Acute non- recurrent maxillary sinusitis J01.[address] 48926- 3051 May, Acute bacterial conjunctivitis of both eyes H10.33 ; Left arm pain M79.602 and Hypokalemia E87.6 [place] [address] [place] [id number] [place] [address] 97863- 7689 Apr, [place] [address] [place] [id number] [place] [address] 16245- 3972 Apr, Neuroforaminal stenosis of spine M99.89 ; Neck pain M54.2 ; Chronic pain due to trauma G89.21 ; Mixed hyperlipidemia E78.2 ; Essential hypertension I10 and Hypokalemia E87.6 [place] [address] [place] [id number] [place] [address] 58759- 1819 Mar, Oral candidiasis B37.0 ; Neuroforaminal stenosis of spine M99.89 ; Neck pain M54.2 and Chronic pain due to trauma G89.21 [facility] [id number] [place] [address] 58922- 6093 Feb, [facility] [address] [place] [id number] [place] [address] 53974- 8891 Feb, [facility] [address] [place] [id number] [place] [address] 18186- 5954 Feb, UTI (urinary tract infection) N39.0 [facility] [address] [place] [id number] [place] [address] 36957- 3347 Feb, Dysuria R30.0 [facility] [address] [place] [id number] [place] [address] 99877- 2801 Feb, Dysuria R30.0 [place] [address] [place] [id number] [place] [address] 45246- 3650 Feb, Neuroforaminal stenosis of spine M99.89 ; Neck pain M54.2 ; Essential hypertension I10 ; Chronic pain due to trauma G89.21 ; Dysuria R30.0 ; Abnormal MRI, shoulder R93.8 and Acute cystitis without hematuria N30.00 [facility] [id number] [place] [address] 59771- 3417 Jan, [facility] [id number] [place] [address] 45560- 0223 Jan, [facility] [address] [place] [id number] [place] [address] 96270- 2407 Jan, [facility] [id number] [place] [address] 84270- 9940 Jan, Abnormal MRI R93.8 [facility] [address] [place] [id number] [place] [address] 85291- 4604 29 Dec, 2015 [facility] [id number] [place] [address] 02481 -8304 15 Dec, 2015 Acute pain of left shoulder M25.512 [facility] [address] [facility] [id number] [place] [address]- 4459 09 Dec, 2015 [facility] [address] [place] [id number] [place] [address] 89081- 0073 08 Dec, 2015 [facility] [address] [place] [id number] [address]- 7670 07 Dec, 2015 Acute pain of left shoulder M25.512 [facility] [address] [facility] [id number] [place] [address] 25696- 1296 Nov, [facility] [address] [facility] [id number] [place] [address]- 6779 Nov, Neuroforaminal stenosis of spine M99.89 ; Neck pain M54.2 ; Abnormal mammogram R92.8 ; Essential hypertension I10 and Chronic pain due to trauma G89.21 [facility] [id number] [place] [address] 20473- 3184 Nov, [facility] [address] [place] [id number] [place] [address] 23425- 8544 Oct, Acute stress disorder F43.0 [facility] [address] [place] [id number] [place] [address] 36732- 4176 Oct, [facility] [address] [address]- 3555 Oct, [facility] [address] [address]- 7146 Oct, [facility] [address] [place] [id number] [address]- 6529 Sep, [facility] [address] [place] [id number] [place] [address] 63775- 2895 August, [facility] [address] [place] [id number] [address]- 3390 Jul, Neuroforaminal stenosis of spine M99.89 ; Neck pain M54.2 ; Abnormal mammogram R92.8 and Essential hypertension I10 [facility] [address] [facility] [id number] [place] [address] 2546 Jul, [facility] [address] [facility] [id number] [place] [address] 2546 Jul, [facility] [address] [place] [id number] [address] 2546 Jul, Abnormal mammogram R92.8 [facility] [address] [place] [id number] [place] [address] 00177 2542 Jul, [facility] [address] [address]- 9399 Jul, UTI (urinary tract infection) N39.0 [facility] [address] [address]- 8466 Jul, Dysuria R30.0 [facility] [address] [address]- 3350 Jun, [facility] [address] [address] 2546 Jun, [facility] [address] [address] 2546 Jun, Hypokalemia E87.6 and Hematuria R31.9 [facility] [address] [address] 2546 Jun, Hypokalemia E87.6 [facility] [address] [facility] [id number] [place] [address] 2546 23 Jun, 2015 [facility] [address] [address] 2546 18 Jun, 2015 Hypokalemia E87.6 [facility] [address] [place] [id number] [address]- 2546 Jun, Hypokalemia E87.6 [facility] [id number] [place] [address] 90932- 5854 15 Jun, 2015 Neuroforaminal stenosis of spine M99.89 ; Hypokalemia E87.6 ; Neck pain M54.2 ; Essential hypertension I10 ; Mixed hyperlipidemia E78.2 and Screening breast examination Z12.39 [facility] [address] [place] [id number] [place] [address] 82446- 3921 08 Jun, 2015 Dysuria R30.0 ; UTI (urinary tract infection) N39.0 and Hematuria R31.9 [place] [address] [place] [id number] [place] [address] 73578- 9547 May, [place] [address] 72862- 1429 18 May, 2015 High risk sexual behavior Z72.51 ; Hypokalemia E87.6 ; Neuroforaminal stenosis of spine M99.89 ; Neck pain M54.2 ; Essential hypertension I10 ; Mixed hyperlipidemia E78.2 ; STD exposure Z20.2 and Concern about STD in female without diagnosis Z71.1 [place] [address] [place] [id number] [place] [address] 27051- 8028 16 May, 2015 Neuroforaminal stenosis of spine M99.89 ; Neck pain M54.2 ; Hypokalemia E87.6 ; Essential hypertension I10 and Mixed hyperlipidemia E78.2 [place] [address] [place] [id number] [place] [address] 10835- 6503 May, [facility] [address] [place] [id number] [place] [address] 08900 -9721 08 May, 2015 High risk sexual behavior Z72.51 ; STD exposure Z20.2 and Concern about STD in female without diagnosis Z71.1 [facility] [address] [place] [id number] [place] [address] 32200- 0676 05 May, 2015 [facility] [address] [place] [id number] [place] [address] 02095- 7758 Apr, Neuroforaminal stenosis of spine M99.89 ; Mixed hyperlipidemia E78.2 ; Essential hypertension I10 and Hypokalemia E87.6 [place] [address] [place] [id number] [place] [address] 84920- 9056 Mar, [place] [address] [place] [id number] [place] [address] 13309- 8408 Mar, Hypokalemia E87.6 [place] [address] [place] [id number] [place] [address] 13184- 4691 Mar, Neuroforaminal stenosis of spine M99.89 ; Mixed hyperlipidemia E78.2 ; Neck pain M54.2 ; Essential hypertension I10 ; Abnormal fasting glucose R73.09 ; Hypokalemia E87.6 and Constipation K59.00 [place] [address] [place] [id number] [place] [address] 92432- 1108 Feb, Neuroforaminal stenosis of spine M99.89 ; Mixed hyperlipidemia E78.2 ; Neck pain M54.2 ; Essential hypertension I10 ; Abnormal fasting glucose R73.09 ; Hypokalemia E87.6 and Constipation K59.00 [place] [address] [place] [id number] [place] [address] 11739- 3873 Feb, Elevated fasting blood sugar R73.01 [place] [address] [place] [id number] [place] [address] 58694- 3409 Feb, Elevated fasting blood sugar R73.01 [place] [address] [place] [id number] [place] [address] 83982- 1108 Feb, Hair loss L65.9 [place] [address] [place] [id number] [place] [address] 09895- 6195 Feb, Sinusitis J32.9 ; Essential hypertension I10 and Hair loss L65.9 [place] [address] [place] [id number] [place] [address] 52068- 3926 Jan, [place] [address] [place] [id number] [place] [address] 95378- 9312 Jan, Essential hypertension I10 ; Neuroforaminal stenosis of spine M99.89 ; Neck pain M54.2 ; Mixed hyperlipidemia E78.2 and Anxiety F41.9 [place] [address] [place] [id number] [place] [address] 80063- 9768 Jan, [facility] [address] [place] [id number] [place] [address] 26033- 0725 Jan, Mixed hyperlipidemia E78.2 ; Essential (primary) hypertension I10 ; Strain of muscle, fascia and tendon at neck level, subsequent encounter S16.1XXD and Tension-type headache, unspecified, not intractable G44.209 [place] [address] [place] [id number] [place] [address] 88844- 9665 Dec, Lumbar back pain 724.2 and Neuroforaminal stenosis of spine 724.00 [place] [address] [place] [id number] [place] [address] 64092- 1023 Nov, [place] [address] 53311- 8261 Nov, Lumbar back pain 724.2 and Neuroforaminal stenosis of spine 724.00 [place] [address] [place] [id number] [place] [address] 33895- 2251 Nov, Edema 782.3 ; Lumbar back pain 724.2 ; Essential hypertension, benign 401.1 ; Hyperlipemia 272.4 ; Neuroforaminal stenosis of spine 724.00 and Post-concussion headache 339.20 [place] [address] [place] [id number] [place] [address] 22038- 1292 Nov, [place] [address] [place] [id number] [place] [address] 28848- 9073 Nov, [place] [address] [place] [id number] [place] [address] 52203- 5927 Oct, Essential hypertension, benign 401.1 [place] [address] [place] [id number] [place] [address] 98345- 6634 Oct, Edema 782.3 ; Lumbar back pain 724.2 ; Essential hypertension, benign 401.1 ; Hyperlipemia 272.4 ; Neuroforaminal stenosis of spine 724.00 and Post-concussion headache 339.20 [facility] [address] [place] [id number] [place] [address] 73433- 2802 Oct, [facility] [address] [place] [id number] [place] [address] 44512- 4051 Oct, Edema 782.3 [facility] [address] [id number] [place] [address] 74688- 3836 Oct, Lumbar back pain 724.2 [facility] [address] [place] [id number] [place] [address] 59021- 4956 Oct, Cervicalgia 723.1 ; Lumbar back pain 724.2 and High risk medication use V58.69 [facility] [address] [place] [id number] [place] [address] 16369- 9127 Sep, [facility] [address] [place] [id number] [place] [address] 03697- 8764 Sep, Lumbar strain 847.2 [facility] [address] [place] [address] [id number] [place] [address] 27420- 9549 August, Edema 782.3 and Eustachian tube dysfunction 381.81 [facility] [id number] [place] [address]11- 2301 August, [facility] [id number] [place] [address] 01638- 8917 August, Eustachian tube dysfunction 381.81 [facility] [id number] [place] [address] 11538- 3114 Jul, Otalgia 388.70 and Otitis media 382.9 [facility] [id number] [place] [address] 03526- 9248 Jul, [facility] [id number] [place] [address] 79400- 2277 Jul, [facility] [address] [id number] [place] [address] 4[address] 28 Jul, 2014 [facility] [place] [facility] [address] [id number] [place] [address] 5657 14 Jul, 2014 [facility] [place] [facility] [address] [id number] [place] [address]- 8764 13 Jul, 2014 [facility] [place] [facility] [address] [id number] [place] [address]- 2782 27 Jun, 2014 [facility] [place] [facility] [address] [id number] [place] [address]- 6765 27 Jun, 2014 [facility] [place] [facility] [address] [id number] [place] [address]- 2975 16 Jun, 2014 [facility] [place] [facility] [address] [facility] [id number] [place] [address]- 8103 26 May, 2014 [facility] [place] [facility] [address] [facility] [id number] [place] [address]- 5590 26 May, 2014 [facility] [place] [facility] [address] [facility] [id number] [place] [address]- 5510 23 May, 2014 [facility] [place] [facility] [address] [facility] [id number] [place] [address]- 0129 May, 2014 [facility] [place] [facility] [address] [facility] [id number] [place] [address]- 1663 17 May, 2014 [facility] [place] [facility] [address] [facility] [id number] [address] 00[address] May, 2014 [facility] [place] [facility] [address] [facility] [id number] [place] [address]- 6554 09 May, 2014 [facility] [place] [facility] [address] [facility] [id number] [place] [address]- 5727 05 May, 2014 [facility] [place] [facility] [address] [facility] [id number] [place] [address]- 8878 05 May, 2014 [facility] [place] [facility] [address] [facility] [id number] [address] 0215 May, [facility] [place] [facility] [address] [id number] [place] [address]- 2700 Apr, [facility] [place] [facility] [address] [id number] [place] [address]- 1784 Apr, [facility] [place] [facility] [address] [id number] [place] [address]- 5073 Apr, [facility] [place] [facility] [address] [id number] [place] [address]- 4291 Apr, [facility] [place] [facility] [address] [id number] [place] [address]- 5353 Apr, [facility] [place] [facility] [address] [id number] [place] [address]- 8239 Apr, [facility] [place] [facility] [address] [id number] [place] [address]- 0543 Apr, [facility] [place] [facility] [address] [id number] [place] [address]- 1052 Apr, [facility] [place] [facility] [address] [id number] [place] [address]- 0707 Apr, [facility] [place] [facility] [address] [id number] [place] [address]- 7855 Apr, [facility] [place] [facility] [address] [id number] [place] [address]- 9031 Apr, [facility] [place] [facility] [address] [id number] [place] [address]- 6832 Apr, [facility] [place] [facility] [address] [id number] [place] [address]- 5451 Apr, [facility] [place] [facility] [address] [id number] [place] [address]- 5395 Apr, [facility] [place] [facility] [address] [id number] [place] [address]- 2593 Apr, [facility] [place] [facility] [address] [id number] [place] [address]- 6738 Mar, [facility] [place] [facility] [address] [id number] [place] [address]- 6697 Mar, [facility] [place] [facility] [address] [id number] [place] 0529 Mar, [facility] [place] [facility] [address] [id number] [place] [address]- 6118 Mar, [facility] [place] [facility] [address] [id number] [place] [address]- 0862 Feb, [facility] [place] [facility] [address] [id number] [place] [address]- 0962 Feb, [facility] [place] [facility] [address] [id number] [place]77 Feb, [facility] [place] [facility] [address] [id number] [place] [address]- 1703 Feb, [facility] [place] [facility] [address] [id number] [place] [address]- 8058 Jan, [facility] [place] [facility] [address] [id number] [place] [address]- 2776 Jan, [facility] [place] [facility] [address] [facility] [id number] [place] 8043 Jan, [facility] [place] [facility] [address] [id number] [place] [address]- 1639 Jan, [facility] [place] [facility] [address] [id number] [place] [address]- 4444 Jan, [facility] [place] [facility] [address] [id number] [place] [address]- 5594 Jan, [facility] [place] [facility] [address] [id number] [place] [address]- 4880 Jan, [facility] [place] [facility] [address] [id number] [place] [address]- 2997 Jan, [facility] [place] [facility] [address] [id number] [place] [address]- 9865 Dec, [facility] [place] [facility] [address] [id number] [place] [address]- 3242 Dec, [facility] [place] [facility] [address] [id number] [place] [address]- 3908 Dec, [facility] [place] [facility] [address] [id number] [place] [address]- 7316 Dec, [facility] [place] [facility] [address] [id number] [place] [address]- 3892 Oct, [facility] [place] [facility] [address] [id number] [place] [address]- 9723 Oct, [facility] [place] [facility] [address] [id number] [place] [address]- 8447 Oct, [facility] [place] [facility] [address] [id number] [place] [address]- 5236 Oct, [facility] [place] [facility] [address] [id number] [place] [address]- 0965 Oct, [facility] [place] [facility] [address] [id number] [place] [address]- 7654 Oct, [facility] [place] [facility] [address] [id number] [place] [address]- 2458 Oct, [facility] [place] [facility] [address] [id number] [address]- 0629 Oct, [facility] [place] [facility] [address] [id number] [place] [address]- 7967 Sep, [facility] [place] [facility] [address] [id number] [place] [address]- 9733 Sep, [facility] [place] [facility] [address] [id number] [place] [address]- 3252 Sep, [facility] [place] [facility] [address] [id number] [place] [address]- 3680 Sep, [facility] [place] [facility] [address] [id number] [place] [address]- 4796 Sep, [facility] [place] [facility] [address] [id number] [place] [address]- 5693 Sep, [facility] [place] [facility] [address] [id number] [place] [address]- 7814 Sep, [facility] [place] [facility] [address] [id number] [place] [address]- 5058 Sep, [facility] [place] [facility] [address] [id number] [place] [address]- 3817 Sep, [facility] [place] [facility] [address] [id number] [place] [address]- 6890 Sep, [facility] [place] [facility] [address] [id number] [place] [address]- 9820 August, [facility] [place] [facility] [address] [id number] [place] [address]- 5029 August, [facility] [place] [facility] [address] [id number] [place] [address]- 4152 August, [facility] [place] [facility] [address] [id number] [place] [address]- 0815 August, [facility] [place] [facility] [address] [id number] [place] [address]- 3665 August, [facility] [place] [facility] [address] [id number] [place] [address]- 1207 August, [facility] [place] [facility] [address] [id number] [place] [address]- 2034 August, [facility] [place] [facility] [address] [id number] [place] [address]- 3692 August, [facility] [place] [facility] [address] [id number] [place] [address]- 3155 August, [facility] [place] [facility] [address] [id number] [place] [address]- 5754 August, [facility] [place] [facility] [address] [id number] [place] [address]- 1051 August, [facility] [place] [facility] [address] [id number] [place] [address]- 8081 August, [facility] [place] [facility] [address] [id number] [place] [address]- 4555 Jul, [facility] [place] [facility] [address] [id number] [place] [address]- 7311 Jul, [facility] [place] [facility] [address] [id number] [place] [address]- 1717 Jul, [facility] [place] [facility] [address] [id number] [place] [address]- 2313 Jul, [facility] [place] [facility] [address] [id number] [place] [address]- 2950 Jul, [facility] [place] [facility] [address] [id number] [place] [address]- 8629 Jul, [facility] [place] [facility] [address] [id number] [place] [address]- 9723 Jun, [facility] [place] [facility] [address] [id number] [place] [address]- 8408 Jun, [facility] [place] [facility] [address] [id number] [place] [address]- 6609 May, [facility] [place] [facility] [address] [id number] [place] [address]- 8253 May, [facility] [place] [facility] [address] [id number] [place] [address]- 8155 Apr, [facility] [place] [facility] [address] [id number] [place] [address]- 9048 Apr, [facility] [place] [facility] [address] [id number] [place] [address]- 3966 Apr, [facility] [address] [id number] [place] [address]- 2772 Apr, [facility] [place] [facility] [address] [id number] [place] [address]- 7797 Apr, [facility] [place] [facility] [address] [id number] [place] [address]- 9502 Apr, [facility] [place] [facility] [address] [id number] [place] [address]- 6037 Apr, [facility] [place] [facility] [address] [id number] [place] [address]- 7217 Apr, [facility] [place] [facility] [address] [id number] [place] [address]- 9335 Apr, [facility] [place] [facility] [address] [id number] [place] [address]- 7824 Apr, [facility] [place] [facility] [address] [id number] [place] [address]- 4101 Apr, [facility] [place] [facility] [address] [id number] [place] [address]- 3585 Apr, [facility] [place] [facility] [address] [id number] [place] [address]- 2195 Apr, [facility] [place] [facility] [address] [id number] [place] [address]- 1691 Mar, [facility] [place] [facility] [address] [id number] [place] [address]- 7110 Mar, [facility] [place] [facility] [address] [id number] [place] [address]- 0930 Mar, [facility] [place] [facility] [address] [id number] [place] [address]- 1795 Mar, [facility] [place] [facility] [address] [id number] [place] [address]- 9497 Feb, [facility] [place] [facility] [address] [id number] [place] [address]- 7503 27 Feb, 2013 [facility] [place] [facility] [address] [id number] [place] [address]- 6013 Feb, [facility] [place] [facility] [address] [id number] [place] [address]- 8879 Feb, [facility] [place] [facility] [address] [id number] [place] [address]- 2402 14 Jan, 2013 [facility] [place] [facility] [address] [id number] [place] [address]- 7922 14 Jan, 2013 [facility] [place] [facility] [address] [id number] [place] [address]- 2383 Jan, [facility] [place] [facility] [address] [id number] [place] [address]- 9038 Jan, [facility] [place] [facility] [address] [id number] [place] [address]- 6763 10 Jan, 2013 [facility] [place] [facility] [address] [id number] [place] [address]- 1364 10 Jan, 2013 [facility] [place] [facility] [address] [id number] [place] [address]- 0920 Jan, [facility] [place] [facility] [address] [id number] [place] [address]- 4045 Jan, [facility] [place] [facility] [address] [id number] [place] [address]- 9711 Jan, [facility] [place] [facility] [address] [id number] [place] [address]- 4444 26 Dec, 2012 [facility] [place] [facility] [address] [id number] [place] [address]- 3766 16 Dec, 2012 [facility] [place] [facility] [address] [id number] [place] [address]- 8010 16 Dec, 2012 [facility] [place] [facility] [address] [id number] [place] [address]- 4011 Dec, [facility] [address] [id number] [place] [address]- 5676 Nov, [facility] [place] [facility] [address] [id number] [place] [address]- 4658 Nov, [facility] [address] [id number] [place] [address]- 6406 Nov, [facility] [place] [facility] [address] [id number] [place] [address]- 7562 Nov, [facility] [address] [id number] [place] [address]- 5863 Oct, [facility] [place] [facility] [address] [id number] [place] [address]- 9858 Sep, [facility] [address] [id number] [place] [address]- 4972 August, [facility] [address] [id number] [place] [address]- 9885 August, [facility] [address] [id number] [place] [address]- 4984 August, [facility] [address] [id number] [place] [address]- 9001 August, [facility] [place] [facility] [address] [id number] [place] [address]- 4533 August, [facility] [place] [facility] [address] [id number] [place] [address]- 1720 August, [facility] [place] [facility] [address] [id number] [place] [address]- 2690 August, [facility] [place] [facility] [address] [id number] [place] [address]- 7843 August, [facility] [place] [facility] [address] [id number] [place] [address]- 0028 August, [facility] [place] [facility] [address] [id number] [place] [address]- 3997 August, [facility] [address] [id number] [place] [address]- 1511 August, [facility] [address] [id number] [place] [address]- 0156 August, [facility] [address] [id number] [place] [address]- 7887 Jul, [facility] [address] [id number] [place] [address]- 4363 Jul, [facility] [address] [id number] [place] [address]- 3152 Jul, [facility] [address] [id number] [place] [address]- 8846 Jul, [facility] [address] [id number] [place] [address]- 0908 Jul, [facility] [address] [id number] [place] [address]- 6969 Jul, [facility] [address] [id number] [place] [address]- 7585 Jul, [facility] [address] [id number] [place] [address]- 7991 Jul, [facility] [address] [id number] [place] [address]- 8769 Jul, [facility] [address] [id number] [place] [address]- 0943 Jul, [facility] [address] [id number] [place] [address]- 9013 Jul, [facility] [address] [id number] [place] [address]- 5303 Jun, [facility] [address] [id number] [place] [address]- 0781 Jun, [facility] [address] [id number] [place] [address]- 6587 Jun, [facility] [place] [facility] [address] [id number] [place] [address]- 0243 Jun, [facility] [place] [facility] [address] [id number] [place] [address]- 1387 May, [facility] [place] [facility] [address] [id number] [place] [address]- 7376 14 May, 2012 [facility] [place] [facility] [address] [id number] [place] [address]- 1707 May, [facility] [place] [facility] [address] [id number] [place] [address]- 4745 May, [facility] [address] [facility] [id number] [place] [address]- 4463 May, [facility] [place] [facility] [address] [id number] [place] [address]- 3132 May, [facility] [place] [facility] [address] [id number] [place] [address]- 8534 Apr, [facility] [place] [facility] [address] [id number] [place] [address]- 3884 Apr, [facility] [place] [facility] [address] [id number] [place] [address]- 7872 Apr, [facility] [place] [facility] [address] [id number] [place] [address]- 4918 Apr, [facility] [place] [facility] [address] [id number] [place] [address]- 5498 Mar, [facility] [place] [facility] [address] [id number] [place] [address]- 8388 Mar, [facility] [place] [facility] [address] [id number] [place] [address]- 2495 Mar, [facility] [place] [facility] [address] [id number] [place] [address]- 6069 Mar, [facility] [place] [facility] [address] [id number] [place] [address]- 6185 14 Mar, 2012 [facility] [place] [facility] [address] [id number] [place] [address]- 6834 Mar, [facility] [place] [facility] [address] [facility] [id number] [place] [address]- 3257 Mar, [facility] [place] [facility] [address] [id number] [place] [address] Feb, [facility] [place] [facility] [address] [id number] [place] [address] Feb, [facility] [place] [facility] [address] [id number] [place] [address] Feb, [facility] [place] [facility] [address] [facility] [id number] [place] [address] Feb, [facility] [place] [facility] [address] [facility] [id number] [place] [address] Jan, [facility] [place] [facility] [address] [facility] [id number] [place] [address] Jan, [facility] [place] [facility] [address] [facility] [id number] [place] [address] Jan, [facility] [place] [facility] [address] [facility] [id number] [address] Jan, [facility] [place] [facility] [address] [facility] [id number] [address] Jan, [facility] [place] [facility] [address] [id number] [place] [address] Jan, [facility] [place] [facility] [address] [facility] [id number] [address] Dec, [facility] [place] [facility] [address] [facility] [id number] [place] [address] Dec, [facility] [place] [facility] [address] [id number] [place] [address] Nov, [facility] [place] [facility] [address] [id number] [place] [address] Sep, [facility] [place] [facility] [address] [id number] [place] [address] August, [facility] [place] [facility] [address] [id number] [place] [address] August, [facility] [place] [facility] [address] [id number] [place] [address] August, [facility] [place] [facility] [address] [id number] [place] [address] August, [facility] [place] [facility] [address] [id number] [place] [address] August, [facility] [place] [facility] [address] [id number] [place] [address] Jun, [facility] [place] [facility] [address] [id number] [place] [address] Jun, [facility] [place] [facility] [address] [id number] [place] [address] Apr, [facility] [place] [facility] [address] [id number] [place] [address] Apr, [facility] [place] [facility] [address] [id number] [place] [address] Mar, [facility] [place] [facility] [address] [id number] [place] [address] Feb, [facility] [place] [facility] [address] [id number] [place] [address] Feb, [facility] [place] [facility] [address] [id number] [place] [address] Feb, [facility] [place] [facility] [address] [id number] [place] [address] 17 Jan, 2011 [facility] [id number] [address] 15 Jan, 2011 [facility] [id number] [address] Jan, [facility] [id number] [place] [address] 14 Jan, 2011 [facility] [id number] [place] [address] May, [facility] [id number] [place] [address] Mar, [facility] [id number] [place] [address]- [address] Oct, [facility] [id number] [place] [address]- [address] Sep, [facility] [id number] [place] [address]- [address] Mar, [facility] [id number] [address] Jan, [facility] [id number] [place] [address] Jan, [facility] [id number] [address] May, IMMUNIZATIONS No Known Immunizations SOCIAL HISTORY Never Assessed REASON FOR VISIT Controlled Refill 03/12 PLAN OF CARE VITAL SIGNS MEDICATIONS Medication Instructions Dosage Frequency Start Date End Date Duration Status Hydrocodone-Acetaminophen 5-325 MG Orally 3 -4 times a day prn. must last 4 weeks 1 tablet as needed Mar, 28 days Active RESULTS No Results PROCEDURES [...]
--- OUTSIDE RECORDS SUMMARY | 2018-06-10 05:14 | XMS REPORT ---
Author Author CAROLINE RAZA [facility] Address [address] [place] [address] Care Team Providers Care Safety And Health Manager Name Role Phone CAROLINE RAZA Unavailable PROBLEMS Type Condition ICD9-CM Code ZOR79-GE Code Onset Dates Condition Status SNOMED Code Problem Hematuria, unspecified type R31.9 Active 03583379 Problem Anxiety F41.9 Active 09605849 Problem Abnormal renal ultrasound R93.429 Active [id number] Problem Abnormal glucose R73.09 Active 239049854 Problem Chronic pain due to trauma G89.21 Active 184503454 Problem Hypokalemia E87.6 Active 41853997 Problem Neck pain M54.2 Active 43395892 Problem Neuroforaminal stenosis of spine M99.89 Active 147415253787 Problem Mixed hyperlipidemia E78.2 Active 52788929 Problem Essential hypertension I10 Active 30153923 ALLERGIES No Information ENCOUNTERS Encounter Location Date Diagnosis [place] [id number] [address]- [address] Feb, [place] [address] 7[address]35- 5547 Feb, Neuroforaminal stenosis of spine M99.89 and High risk medication use Z79.899 [facility] [address] [place] [place] [id number] [place] [address] 03136- 4294 Jan, Hypokalemia E87.6 [facility] [address] 20212- 7821 Jan, Flank pain R10.9 and Acute right-sided low back pain without sciatica M54.5 [facility] [address] [place] [id number] [place] [address] 51826- 8002 Jan, Hypokalemia E87.6 [place] [address] [place] [id number] [place] [address] 06355- 3138 Jan, [place] [address] 59350- 2230 Jan, URI, acute J06.9 [place] [address] 87207- 4502 05 Jan, 2018 Neuroforaminal stenosis of spine M99.89 [place] [address] 02684- 6979 13 Dec, 2017 Lateral epicondylitis, right elbow M77.11 [place] [address] 616667- 6181 11 Dec, 2017 Allergic rhinitis due to pollen, unspecified seasonality J30.1 and Allergic conjunctivitis of both eyes H10.13 [place] [address] 10549- 3858 10 Dec, 2017 Neuroforaminal stenosis of spine M99.89 [place] [address] 79351- 4705 Dec, Mixed hyperlipidemia E78.2 [place] [address] 55076- 4823 05 Dec, 2017 Abnormal glucose R73.09 ; Abnormal renal ultrasound R93.429 ; Dysuria R30.0 ; Cystitis without hematuria N30.90 ; Hypokalemia E87.6 ; Mixed hyperlipidemia E78.2 and Hematuria, unspecified type R31.9 [place] [address] [id number] [place] [address] 06670- 1592 Nov, Hypokalemia E87.6 ; Mixed hyperlipidemia E78.2 and Hematuria , unspecified type R31.9 [place] [address] [id number] [place] [address] 65635- 8893 Nov, [place] [address] 08946- 8899 Nov, Hypokalemia E87.6 [place] [id number] [place] [id number] [place] [address] 33748- 6641 Nov, [facility] [address] [id number] [place] [address] 98528- 2778 Nov, Abnormal renal ultrasound R93.429 [place] [address] [id number] [place] [address] 42575- 7652 Nov, Abnormal renal ultrasound R93.429 [place] [address] [id number] [place] [address] 73201- 2850 Nov, Hematuria, unspecified type R31.9 and Neuroforaminal stenosis of spine M99.89 [place] [address] [id number] [place] [address] 93768- 3990 Nov, Dysuria R30.0 [place] [address] [place] [id number] [place] [address] 46723- 2147 Oct, Lateral epicondylitis, right elbow M77.11 [place] [address] [id number] [place] [address] 08459- 3718 Oct, Neuroforaminal stenosis of spine M99.89 ; Visit for TB skin test Z11.1 and Essential hypertension I10 [place] [address] [place] [id number] [place] [address] 27692- 5224 Oct, [place] [address] [place] [id number] [place] [address] 77961- 9394 Oct, Neuroforaminal stenosis of spine M99.89 [place] [address] [id number] [place] [address] 30324- 1733 Oct, Visit for TB skin test Z11.1 [place] [address] [place] [id number] [place] [address] 18689- 8712 Oct, Cystitis without hematuria N30.90 [place] [address] [place] [id number] [place] [address] 12420- 3553 Sep, Screening breast examination Z12.39 [place] [address] [place] [id number] [place] [address] 36212- 2509 26 Sep, 2017 Dysuria R30.0 and Cystitis without hematuria N30.90 [place] [address] [place] [id number] [place] [address] 61577- 4319 14 Sep, 2017 Essential hypertension I10 and Neuroforaminal stenosis of spine M99.89 [place] [address] [place] [id number] [place] [address] 32258- 3442 04 Sep, 2017 Abnormal glucose R73.[address] 17589- 3820 August, Lateral epicondylitis, right elbow M77.11 [place] [address] 24574- 2976 August, Screen for STD (sexually transmitted disease) Z11.3 [place] [address] [place] [id number] [place] [address] 83199- 0927 August, Neuroforaminal stenosis of spine M99.89 ; Mixed hyperlipidemia E78.2 ; Elevated fasting glucose R73.01 ; Screening mammogram, encounter for Z12.31 and Encounter for well woman exam without gynecological exam Z00.00 [place] [address] [place] [id number] [place] [address] 32590- 0908 August, Neuroforaminal stenosis of spine M99.89 [place] [address] [place] [id number] [place] [address] 64008- 9324 August, Essential hypertension I10 ; Hypokalemia E87.6 and Mixed hyperlipidemia E78.2 [place] [address] [place] [id number] [place] [address] 95006- 9723 Jul, [place] [address] [place] [id number] [place] [address] 73826- 9944 Jul, Neuroforaminal stenosis of spine M99.89 [place] [address] [place] [id number] [place] [address] 25502- 8405 Jul, Lateral epicondylitis, right elbow M77.11 [facility] [address] [id number] [place] [address] 41667- 6447 Jul, [facility] [address] [place] [id number] [place] [address] 88467- 0393 Jun, High ankle sprain of right lower extremity, initial encounter S93.431A [place] [address] [id number] [place] [address] 85889- 7327 Jun, Essential hypertension I10 [place] [address] [place] [id number] [place] [address] 73441- 1757 Jun, [place] [address] [place] [id number] [place] [address] 11367- 4054 Jun, [place] [address] 69309- 2657 Jun, Neuroforaminal stenosis of spine M99.89 [place] [address] [place] [id number] [place] [address] 01204- 2518 Jun, Pain of right upper extremity M79.601 and Essential hypertension I10 [place] [address] [place] [id number] [place] [address] 57030- 7269 Jun, [place] [address] [place] [id number] [place] [address] 66817- 2248 Jun, Dysuria R30.0 ; Acute cystitis with hematuria N30.01 and Screen for STD (sexually transmitted disease) Z11.3 [place] [address] [place] [id number] [place] [address] 79272- 4494 May, Chronic pain due to trauma G89.21 [place] [address] [place] [id number] [place] [address] 18780- 6595 May, Essential hypertension I10 [place] [address] [place] [id number] [place] [address] 07715- 0538 May, Neuroforaminal stenosis of spine M99.89 [facility] [address] [place] [address] 72174- 7598 Apr, Allergic reaction, initial encounter T78.40XA [facility] [address] [place] [id number] [place] [address] 61636- 3311 Apr, Low back pain, unspecified back pain laterality, unspecified chronicity, with sciatica presence unspecified M54.5 ; Acute cystitis with hematuria N30.01 ; Neuroforaminal stenosis of spine M99.89 ; Bilateral acute serous otitis media, recurrence not specified H65.03 ; Mixed hyperlipidemia E78.2 ; Essential hypertension I10 ; Immunization counseling Z71.89 and Encounter for immunization Z23 [place] [address] [place] [id number] [place] [address] 14638- 6545 Apr, Neck pain M54.2 [place] [address] 54044- 2190 Mar, Neuroforaminal stenosis of spine M99.89 [place] [address] [place] [id number] [place] [address] 13219- 4606 Mar, Pharyngitis due to other organism J02.8 [place] [address] [place] [id number] [place] [address] 27031- 2326 Feb, Neuroforaminal stenosis of spine M99.89 [place] [address] [place] [id number] [place] [address] 24553- 1176 08 Feb, 2017 UTI (urinary tract infection) N39.0 [place] [address] [place] [id number] [place] [address] 44845- 4033 07 Feb, 2017 Recent urinary tract infection Z87.440 ; Neuroforaminal stenosis of spine M99.89 ; Neck pain M54.2 ; Chronic pain due to trauma G89.21 and Recurrent UTI N39.0 [facility] [id number] [place] [address] 27602- 2985 Feb, [place] [address] [place] [id number] [place] [address] 58211- 1990 Jan, Neuroforaminal stenosis of spine M99.89 [place] [address] 33473- 5094 Dec, Neuroforaminal stenosis of spine M99.89 [place] [address] [place] [id number] [place] [address] 58651- 9876 18 Dec, 2016 Acute seasonal allergic rhinitis due to pollen J30.1 [place] [address] 52716- 2829 Dec, [place] [address] 86134- 8007 Dec, Acute seasonal allergic rhinitis, unspecified trigger J30.2 ; Allergic conjunctivitis of both eyes H10.13 and Dysfunction of both eustachian tubes H69.83 [place] [address] 84035- 7469 Dec, [place] [address] 51212- 0140 Dec, Nevus D22.9 [place] [address] 33744- 3573 Nov, Chronic pain due to trauma G89.21 and Neuroforaminal stenosis of spine M99.89 [place] [address] [place] [id number] [place] [address] 58125- 0567 Nov, Neuroforaminal stenosis of spine M99.89 ; Essential hypertension I10 ; Mixed hyperlipidemia E78.2 ; Hypokalemia E87.6 ; Neck pain M54.2 and Nevus D22.9 [place] [address] [place] [id number] [place] [address] 35912- 6990 Oct, Neuroforaminal stenosis of spine M99.89 [place] [address] [place] [id number] [place] [address] 03568- 2742 Sep, Neuroforaminal stenosis of spine M99.89 [facility] [address] [id number] [address]- 4685 Sep, [facility] [address] [facility] [id number] [address]- 3696 August, [facility] [address] [facility] [id number] [address]- 5266 August, Neck pain M54.2 and Neuroforaminal stenosis of spine M99.89 [facility] [address] [id number] [address] 2546 August, Routine gynecological examination Z01.419 and Screening breast examination Z12.39 [facility] [address] [facility] [id number] [place] [address] 35293- 8686 Jul, [facility] [address] [place] [id number] [place] [address] 77944- 2826 Jul, [facility] [address] [place] [address] 05753- 0228 Jul, Neuroforaminal stenosis of spine M99.89 [facility] [address] [address]- 5236 Jul, [facility] [address] [facility] [id number], [place] [address]- 7729 Jul, 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 [facility] [address] [id number] [address] 2546 Jul, [facility] [address] [facility] [id number], [place] [address]- 4729 Jul, [facility] [address] [facility] [id number] [place] [address] 19862- 2546 Jun, Neuroforaminal stenosis of spine M99.89 [facility] [address] [facility] [id number] [address]- 2546 Jun, Uterine leiomyoma, unspecified location D25.9 and Allergic reaction caused by a drug, initial encounter T78.40XA [place] [address] [place] [id number] [place] [address] 73841- 8227 Jun, [place] [address] 83277- 2048 May, UTI symptoms R39.9 and Pain of right sacroiliac joint M53.3 [place] [address] 48694- 9919 May, Neuroforaminal stenosis of spine M99.89 [place] [address] 66610- 7686 May, [place] [address] 24989- 2891 May, Acute mucoid otitis media of left ear H65.112 and Acute non- recurrent maxillary sinusitis J01.00 [place] [address] 30976- 4607 May, Acute bacterial conjunctivitis of both eyes H10.33 ; Left arm pain M79.602 and Hypokalemia E87.6 [place] [address] 72632- 0672 Apr, [place] [address] 96857- 3258 Apr, Neuroforaminal stenosis of spine M99.89 ; Neck pain M54.2 ; Chronic pain due to trauma G89.21 ; Mixed hyperlipidemia E78.2 ; Essential hypertension I10 and Hypokalemia E87.6 [place] [address] 74987- 3193 Mar, Oral candidiasis B37.0 ; Neuroforaminal stenosis of spine M99.89 ; Neck pain M54.2 and Chronic pain due to trauma G89.21 [place] [address] 67332- 5074 Feb, [facility] [id number] [place] [address] 36879- 0793 Feb, [facility] [address] [place] [id number] [place] [address] 69756- 6948 Feb, UTI (urinary tract infection) N39.0 [facility] [address] [place] [id number] [place] [address] 29924- 1299 Feb, Dysuria R30.0 [facility] [address] [id number] [place] [address] 34268- 8387 Feb, Dysuria R30.0 [facility] [address] [place] [id number] [place] [address] 37947- 5315 Feb, Neuroforaminal stenosis of spine M99.89 ; Neck pain M54.2 ; Essential hypertension I10 ; Chronic pain due to trauma G89.21 ; Dysuria R30.0 ; Abnormal MRI, shoulder R93.8 and Acute cystitis without hematuria N30.00 [facility] [address] [place] [id number] [place] [address] 87222- 4641 Jan, [facility] [address] [id number] [place] [address] 15542- 1521 Jan, [facility] [address] [id number] [place] [address] 57481- 3546 Jan, [facility] [address] [id number] [place] [address] 55732- 5146 Jan, Abnormal MRI R93.8 [facility] [address] [place] [id number] [place] [address] 00063- 2843 Dec, [facility] [address] [place] [id number] [place] [address] 82242 -8535 Dec, Acute pain of left shoulder M25.512 [facility] [address] [place] [id number] [place] [address] 80099- 0913 Dec, [facility] [address] [place] [address]- 2279 08 Dec, 2015 [facility] [id number] [address]- 0553 07 Dec, 2015 Acute pain of left shoulder M25.512 [facility] [id number] [address]- 4189 Nov, [facility] [address] [place] [id number] [place] [address] 50323- 2158 Nov, Neuroforaminal stenosis of spine M99.89 ; Neck pain M54.2 ; Abnormal mammogram R92.8 ; Essential hypertension I10 and Chronic pain due to trauma G89.21 [facility] [address] [id number] [place] [address] 81212- 5377 Nov, [facility] [id number] [address]- 1628 Oct, Acute stress disorder F43.0 [facility] [id number] [address]- 7390 Oct, [facility] [address] [place] [id number] [place] [address] 78378- 9255 Oct, [facility] [id number] [address]- 5043 Oct, [facility] [id number] [address]- 2343 Sep, [facility] [id number] [address]- 5157 August, [facility] [id number] [address]- 1978 Jul, Neuroforaminal stenosis of spine M99.89 ; Neck pain M54.2 ; Abnormal mammogram R92.8 and Essential hypertension I10 [facility] [id number] [address]- 8548 Jul, [facility] [address] [place] [id number] [address]- 0699 Jul, [facility] [address] [place] [id number] [place] [address] 22719- 7980 Jul, Abnormal mammogram R92.8 [facility] [address] [id number] [place] [address] 00241- 2011 Jul, [facility] [address] [place] [id number] [place] [address] 58764- 8296 Jul, UTI (urinary tract infection) N39.0 [facility] [address] [place] [id number] [place] [address] 87977- 3246 Jul, Dysuria R30.0 [facility] [id number] [place] [address] 55864- 6893 Jun, [facility] [id number] [place] [address] 20167- 8759 Jun, [facility] [address] [id number] [place] [address] 79836- 3882 Jun, Hypokalemia E87.6 and Hematuria R31.9 [facility] [id number] [place] [address] 92133- 7384 Jun, Hypokalemia E87.6 [facility] [id number] [place] [address] 48435- 7386 Jun, [facility] [id number] [place] [address] 58624- 3418 Jun, Hypokalemia E87.6 [facility] [id number] [place] [address] 76053 2546 18 Jun, 2015 Hypokalemia E87.6 [facility] [id number] [place] [address] 02945- 254 15 Jun, 2015 Neuroforaminal stenosis of spine M99.89 ; Hypokalemia E87.6 ; Neck pain M54.2 ; Essential hypertension I10 ; Mixed hyperlipidemia E78.2 and Screening breast examination Z12.39 [facility] [id number] [place] [address] 39829- 0451 Jun, Dysuria R30.0 ; UTI (urinary tract infection) N39.0 and Hematuria R31.9 [place] [address] 59433- 2573 May, [facility] [address] 49103- 8138 May, High risk sexual behavior Z72.51 ; Hypokalemia E87.6 ; Neuroforaminal stenosis of spine M99.89 ; Neck pain M54.2 ; Essential hypertension I10 ; Mixed hyperlipidemia E78.2 ; STD exposure Z20.2 and Concern about STD in female without diagnosis Z71.1 [place] [address] 56409- 8543 16 May, 2015 Neuroforaminal stenosis of spine M99.89 ; Neck pain M54.2 ; Hypokalemia E87.6 ; Essential hypertension I10 and Mixed hyperlipidemia E78.2 [place] [address] 29599- 5953 May, [facility] [id number] [place] [address] 69198 -2664 08 May, 2015 High risk sexual behavior Z72.51 ; STD exposure Z20.2 and Concern about STD in female without diagnosis Z71.1 [place] [id number] [place] [address] 24719- 4187 May, [facility] [address] 21469- 8615 Apr, Neuroforaminal stenosis of spine M99.89 ; Mixed hyperlipidemia E78.2 ; Essential hypertension I10 and Hypokalemia E87.6 [place] [id number] [place] [address] 61723- 3437 Mar, [place] [id number] [place] [address] 72851- 3333 Mar, Hypokalemia E87.6 [place] [address] 84879- 8081 Mar, Neuroforaminal stenosis of spine M99.89 ; Mixed hyperlipidemia E78.2 ; Neck pain M54.2 ; Essential hypertension I10 ; Abnormal fasting glucose R73.09 ; Hypokalemia E87.6 and Constipation K59.00 [place] [address] [id number] [place] [address] 85891- 7395 Feb, Neuroforaminal stenosis of spine M99.89 ; Mixed hyperlipidemia E78.2 ; Neck pain M54.2 ; Essential hypertension I10 ; Abnormal fasting glucose R73.09 ; Hypokalemia E87.6 and Constipation K59.00 [place] [id number] [place] [address] 31259- 3862 Feb, Elevated fasting blood sugar R73.01 [place] [id number] [place] [address] 88894- 0278 Feb, Elevated fasting blood sugar R73.01 [place] [address] 14461- 6856 Feb, Hair loss L65.9 [place] [id number] [place] [address] 07061- 3649 Feb, Sinusitis J32.9 ; Essential hypertension I10 and Hair loss L65.9 [place] [id number] [place] [address] 31662- 6683 Jan, [place] [address] 46595- 7784 Jan, Essential hypertension I10 ; Neuroforaminal stenosis of spine M99.89 ; Neck pain M54.2 ; Mixed hyperlipidemia E78.2 and Anxiety F41.9 [place] [address] 02298- 8280 Jan, [place] [id number] [place] [address] 06927- 5219 Jan, Mixed hyperlipidemia E78.2 ; Essential (primary) hypertension I10 ; Strain of muscle, fascia and tendon at neck level, subsequent encounter S16.1XXD and Tension-type headache, unspecified, not intractable G44.209 [place] [id number] [place] [address] 82936- 4521 Dec, Lumbar back pain 724.2 and Neuroforaminal stenosis of spine 724.00 [place] [id number] [place] [address] 99315- 3318 Nov, [place] [id number] [place] [address] 83714- 6871 Nov, Lumbar back pain 724.2 and Neuroforaminal stenosis of spine 724.00 [place] [id number] [place] [address] 66596- 9446 Nov, Edema 782.3 ; Lumbar back pain 724.2 ; Essential hypertension, benign 401.1 ; Hyperlipemia 272.4 ; Neuroforaminal stenosis of spine 724.00 and Post-concussion headache 339.20 [place] [id number] [place] [address] 20858- 7042 Nov, [place] [id number] [place] [address] 42049- 9158 Nov, [place] [id number] [place] [address] 67607- 5909 Oct, Essential hypertension, benign 401.1 [place] [id number] [place] [address] 42389- 6127 Oct, Edema 782.3 ; Lumbar back pain 724.2 ; Essential hypertension, benign 401.1 ; Hyperlipemia 272.4 ; Neuroforaminal stenosis of spine 724.00 and Post-concussion headache 339.20 [place] [address] [place] [address] Oct, [facility] [id number] [address] Oct, Edema 782.3 [facility] [id number] [place] [address] [id number]- 0837 Oct, Lumbar back pain 724.2 [facility] [id number] [place] [address] 74100- 1535 Oct, Cervicalgia 723.1 ; Lumbar back pain 724.2 and High risk medication use V58.69 [facility] [id number] [place] [address] 90259- 9631 Sep, [facility] [id number] [place] [address] 22521- 8903 Sep, Lumbar strain 847.2 [facility] [id number] [place] [address] 88916- 2038 August, Edema 782.3 and Eustachian tube dysfunction 381.81 [facility] [id number] [place] [address] 63152- 0272 August, [facility] [id number] [place] [address] 68108- 3544 August, Eustachian tube dysfunction 381.81 [facility] [id number] [place] [address] 40552- 0873 Jul, Otalgia 388.70 and Otitis media 382.9 [facility] [id number] [address] 1502 Jul, [facility] [id number] [place] [address] 16456- 5529 Jul, [facility] [id number] [address]- 7885 Jul, [facility] [id number] [place] [address] 53578- 6094 14 Jul, 2014 [facility] [place] [facility] [address] [id number] [place] [address]- 0177 13 Jul, 2014 [facility] [place] [facility] [address] [id number] [place] [address]- 9037 Jun, [facility] [place] [facility] [address] [facility] [id number] [place] [address]- 0842 Jun, [facility] [place] [facility] [address] [id number] [place] [address]- 7861 16 Jun, 2014 [facility] [place] [facility] [address] [id number] [place] [address]- 0268 May, 2014 [facility] [place] [facility] [address] [facility] [id number] [place] [address]- 2043 May, 2014 [facility] [place] [facility] [address] [facility] [id number] [place] [address]- 4375 May, 2014 [facility] [place] [facility] [address] [facility] [id number] [place] [address]- 7070 May, 2014 [facility] [place] [facility] [address] [facility] [id number] [place] [address]- 1985 May, 2014 [facility] [place] [facility] [address] [facility] [id number] [place] [address]- 1656 May, 2014 [facility] [place] [facility] [address] [facility] [id number] [place] [address]- 0885 May, 2014 [facility] [place] [facility] [address] [facility] [id number] [place] [address]- 7714 May, 2014 [facility] [place] [facility] [address] [facility] [id number] [place] [address]- 3686 May, 2014 [facility] [place] [facility] [address] [facility] [id number] [place] [address]- 2616 May, 2014 [facility] [place] [facility] [address] [facility] [id number] [place] [address]- 1842 Apr, [facility] [place] [facility] [address] [id number] [place] [address]- 9322 Apr, [facility] [place] [facility] [address] [id number] [place] [address]- 7115 Apr, [facility] [place] [facility] [address] [id number] [place] [address]- 4696 Apr, [facility] [place] [facility] [address] [id number] [place] [address]- 3924 Apr, [facility] [place] [facility] [address] [id number] [place] [address]- 9219 Apr, [facility] [place] [facility] [address] [id number] [place] [address]- 6550 Apr, [facility] [place] [facility] [address] [id number] [place] [address]- 4033 Apr, [facility] [place] [facility] [address] [id number] [place] [address]- 8249 Apr, [facility] [place] [facility] [address] [id number] [place] [address]- 6222 Apr, [facility] [place] [facility] [address] [id number] [place] [address]- 2467 Apr, [facility] [place] [facility] [address] [id number] [place] [address]- 3529 Apr, [facility] [place] [facility] [address] [id number] [address]- 2622 Apr, [facility] [place] [facility] [address] [id number] [place] [address]- 6383 Apr, [facility] [place] [facility] [address] [id number] [place] [address]- 1913 Apr, [facility] [place] [facility] [address] [id number] [place] [address]- 6539 Mar, [facility] [place] [facility] [address] [id number] [address]- 3080 Mar, [facility] [place] [facility] [address] [id number] [place] [address]- 1521 Mar, [facility] [place] [facility] [address] [id number] [place] 0570 Mar, [facility] [place] [facility] [address] [facility] [id number] [place] 4931 Feb, [facility] [place] [facility] [address] [id number] [place] [address]- 1193 Feb, [facility] [place] [facility] [address] [id number] [place] [address]- 9691 Feb, [facility] [place] [facility] [address] [facility] [id number] [place] [address]- 8741 Feb, [facility] [place] [facility] [address] [facility] [id number] [place] [address]- 6256 Jan, [facility] [place] [facility] [address] [facility] [id number] [place] [address]- 4106 Jan, [facility] [place] [facility] [address] [facility] [id number] [address]- 3077 Jan, [facility] [place] [facility] [address] [facility] [id number], [place] [address]- 2287 Jan, [facility] [place] [facility] [address] [facility] [id number] [address]- 4206 Jan, [facility] [place] [facility] [address] [facility] [id number] [address]- 3980 Jan, [facility] [place] [facility] [address] [facility] [id number] [address]- 7945 Jan, [facility] [place] [facility] [address] [facility] [id number], [place] [address]- 8069 Jan, [facility] [place] [facility] [address] [facility] [id number] [place] [address]- 5029 Dec, [facility] [place] [facility] [address] [id number] [place] [address]- 5057 29 Dec, 2013 [facility] [place] [facility] [address] [id number] [place] [address]- 2785 04 Dec, 2013 [facility] [place] [facility] [address] [id number] [place] [address]- 3616 04 Dec, 2013 [facility] [place] [facility] [address] [id number] [place] [address]- 4710 Oct, 2013 [facility] [place] [facility] [address] [id number] [place] [address]- 7427 Oct, 2013 [facility] [place] [facility] [address] [id number] [place] [address]- 5707 Oct, [facility] [place] [facility] [address] [id number] [place] [address]- 5947 Oct, 2013 [facility] [place] [facility] [address] [id number] [place] [address]- 1358 Oct, 2013 [facility] [place] [facility] [address] [id number] [place] [address]- 3888 Oct, [facility] [place] [facility] [address] [id number] [place] [address]- 9300 Oct, [facility] [place] [facility] [address] [id number] [place] [address]- 6010 Oct, [facility] [place] [facility] [address] [id number] [place] [address]- 8810 Sep, [facility] [place] [facility] [address] [id number] [place] [address]- 7996 Sep, [facility] [place] [facility] [address] [id number] [place] [address]- 0508 Sep, [facility] [place] [facility] [address] [id number] [place] [address]- 6979 Sep, [facility] [place] [facility] [address] [id number] [place] [address]- 1101 Sep, [facility] [place] [facility] [address] [id number] [place] [address]- 6193 Sep, [facility] [place] [facility] [address] [id number] [place] [address]- 0776 Sep, [facility] [place] [facility] [address] [id number] [place] [address]- 1946 Sep, [facility] [place] [facility] [address] [id number] [place] [address]- 5314 Sep, [facility] [place] [facility] [address] [id number] [place] [address]- 0208 Sep, [facility] [place] [facility] [address] [id number] [place] [address]- 5309 August, [facility] [place] [facility] [address] [id number] [place] [address]- 9294 August, [facility] [place] [facility] [address] [id number] [place] [address]- 9206 August, [facility] [place] [facility] [address] [id number] [place] [address]- 7757 August, [facility] [place] [facility] [address] [id number] [place] [address]- 4203 August, [facility] [place] [facility] [address] [id number] [place] [address]- 2211 August, [facility] [place] [facility] [address] [id number] [place] [address]- 5235 August, [facility] [place] [facility] [address] [id number] [place] [address]- 8242 August, [facility] [place] [facility] [address] [id number] [place] [address]- 2797 August, [facility] [place] [facility] [address] [id number] [place] [address]- 1627 August, [facility] [place] [facility] [address] [id number] [place] [address]- 3046 August, [facility] [place] [facility] [address] [id number] [place] [address]- 4283 August, [facility] [place] [facility] [address] [id number] [place] [address]- 5124 Jul, [facility] [place] [facility] [address] [id number] [place] [address]- 2558 Jul, [facility] [place] [facility] [address] [id number] [place] [address]- 2461 Jul, [facility] [place] [facility] [address] [id number] [place] [address]- 5194 Jul, [facility] [place] [facility] [address] [id number] [place] [address]- 9085 Jul, [facility] [place] [facility] [address] [id number] [place] [address]- 9772 Jul, [facility] [place] [facility] [address] [id number] [place] [address]- 0762 Jun, [facility] [place] [facility] [address] [id number] [place] [address]- 9800 Jun, [facility] [place] [facility] [address] [id number] [place] [address]- 8561 May, [facility] [place] [facility] [address] [id number] [place] [address]- 6530 May, [facility] [place] [facility] [address] [id number] [place] [address]- 9733 Apr, [facility] [place] [facility] [address] [id number] [place] [address]- 8583 Apr, [facility] [place] [facility] [address] [id number] [place] [address]- 5161 Apr, [facility] [place] [facility] [address] [id number] [place] [address]- 8122 Apr, [facility] [place] [facility] [address] [id number] [place] [address]- 9457 Apr, [facility] [address] [id number] [place] [address]- 8845 Apr, [facility] [address] [id number] [place] [address]- 7693 Apr, [facility] [address] [id number] [place] [address]- 5979 Apr, [facility] [address] [id number] [place] [address]- 6722 Apr, [facility] [address] [id number] [place] [address]- 3997 Apr, [facility] [address] [id number] [place] [address]- 1464 Apr, [facility] [address] [id number] [place] [address]- 8737 Apr, [facility] [address] [id number] [place] [address]- 6863 Apr, [facility] [address] [id number] [place] [address]- 0744 Mar, [facility] [address] [id number] [place] [address]- 5552 Mar, [facility] [address] [id number] [address]- 2110 Mar, [facility] [place] [facility] [address] [id number] [place] [address]- 4473 Mar, [facility] [place] [facility] [address] [id number] [place] [address]- 5318 Feb, [facility] [address] [id number] [place] [address]- 1123 Feb, [facility] [address] [id number], [place] [address]- 2289 08 Feb, 2013 [facility] [place] [facility] [address] [id number] [place] [address]- 4894 08 Feb, 2013 [facility] [place] [facility] [address] [id number] [place] [address]- 4774 Jan, [facility] [place] [facility] [address] [id number] [place] [address]- 1504 Jan, [facility] [place] [facility] [address] [id number] [place] [address]- 7588 Jan, [facility] [place] [facility] [address] [id number] [place] [address]- 8377 Jan, [facility] [place] [facility] [address] [id number] [place] [address]- 6118 Jan, [facility] [place] [facility] [address] [id number] [place] [address]- 2370 Jan, [facility] [place] [facility] [address] [id number] [place] [address]- 9492 Jan, [facility] [place] [facility] [address] [id number] [place] [address]- 3400 Jan, [facility] [place] [facility] [address] [id number] [place] [address]- 6913 Jan, [facility] [place] [facility] [address] [id number], [place] [address]- 1564 26 Dec, 2012 [facility] [place] [facility] [address] [id number] [address]- 9840 16 Dec, 2012 [facility] [place] [facility] [address] [id number] [place] [address]- 6848 16 Dec, 2012 [facility] [place] [facility] [address] [id number] [place] [address]- 4553 13 Dec, 2012 [facility] [place] [facility] [address] [id number] [place] [address]- 0902 17 Nov, 2012 [facility] [place] [facility] [address] [id number] [place] [address]- 9850 Nov, [facility] [address] [id number] [place] [address]- 5446 Nov, [facility] [address] [id number] [place] [address]- 0476 Nov, [facility] [address] [id number] [place] [address]- 7923 Oct, [facility] [address] [id number] [place] [address]- 5739 Sep, [facility] [address] [id number] [place] [address]- 1864 August, [facility] [address] [id number] [place] [address]- 1166 August, [facility] [address] [id number] [place] [address]- 1748 August, [facility] [address] [id number] [place] [address]- 6151 August, [facility] [address] [id number] [place] [address]- 4164 August, [facility] [address] [id number] [place] [address]- 4254 August, [facility] [address] [id number] [place] [address]- 4844 August, [facility] [address] [id number] [place] [address]- 2912 August, [facility] [address] [id number] [place] [address]- 2581 August, [facility] [address] [id number] [place] [address]- 2546 August, [facility] [address] [id number] [place] [address]- 4719 August, [facility] [address] [id number] [place] [address]- 0560 August, [facility] [address] [id number] [place] [address]- 9803 Jul, [facility] [address] [id number] [place] [address]- 6850 Jul, [facility] [place] [facility] [address] [id number] [place] [address]- 7160 Jul, [facility] [address] [id number] [place] [address]- 9774 Jul, [facility] [address] [id number] [place] [address]- 8827 Jul, [facility] [address] [id number] [place] [address]- 7498 Jul, [facility] [address] [id number] [place] [address]- 3181 Jul, [facility] [address] [id number] [place] [address]- 1929 Jul, [facility] [address] [id number] [place] [address]- 6402 Jul, [facility] [place] [facility] [address] [id number] [place] [address]- 3954 Jul, [facility] [place] [facility] [address] [id number] [place] [address]- 1426 Jul, [facility] [place] [facility] [address] [id number] [place] [address]- 6990 Jun, [facility] [place] [facility] [address] [id number] [place] [address]- 0681 Jun, [facility] [place] [facility] [address] [id number] [place] [address]- 8721 Jun, [facility] [place] [facility] [address] [id number] [place] [address]- 7382 Jun, [facility] [address] [id number] [place] [address]- 9026 28 May, 2012 [facility] [place] [facility] [address] [id number] [place] [address]- 0826 14 May, 2012 [facility] [address] [id number] [place] [address]- 6026 05 May, 2012 [facility] [place] [facility] [address] [id number] [place] [address]- 2546 May, [facility] [address] [id number] [place] [address]- 6616 May, [facility] [place] [facility] [address] [id number] [place] [address]- 3836 May, [facility] [address] [id number] [place] [address]- 1883 Apr, [facility] [address] [id number] [place] [address]- 0723 Apr, [facility] [address] [id number] [place] [address]- 5422 30 Apr, 2012 [facility] [address] [id number] [place] [address]- 8801 Apr, [facility] [address] [id number] [place] [address] 2546 15 Mar, 2012 [facility] [address] [id number] [place] [address] 2546 14 Mar, 2012 [facility] [place] [facility] [address] [id number] [place] [address]- 6956 14 Mar, 2012 [facility] [place] [facility] [address] [id number] [place] [address] 2546 14 Mar, 2012 [facility] [place] [facility] [address] [id number] [place] [address]- 7888 Mar, [facility] [place] [facility] [address] [id number] [place] [address]- 3630 Mar, [facility] [place] [facility] [address] [id number] [place] [address] Mar, [facility] [place] [facility] [address] [id number] [place] [address] Feb, [facility] [place] [facility] [address] [id number] [place] [address] Feb, [facility] [place] [facility] [address] [id number] [place] [address] Feb, [facility] [place] [facility] [address] [id number] [place] [address] Feb, [facility] [place] [facility] [address] [facility] [id number] [place] [address] Jan, [facility] [place] [facility] [address] [id number], [place] [address] Jan, [facility] [place] [facility] [address] [id number] [place] [address] Jan, [facility] [place] [facility] [address] [facility] [id number] [address] Jan, [facility] [place] [facility] [address] [facility] [id number], [place] [address] Jan, [facility] [place] [facility] [address] [id number], [place] [address] Jan, [facility] [place] [facility] [address] [id number], [place] [address] Dec, [facility] [place] [facility] [address] [id number], [place] [address] Dec, [facility] [place] [facility] [address] [facility] [id number], [place] [address] Nov, [facility] [place] [facility] [address] [id number], [place] [address] Sep, [facility] [address] [id number] [place] [address] August, [facility] [place] [facility] [address] [id number] [place] [address] August, [facility] [place] [facility] [address] [facility] [id number] [place] [address] August, [facility] [place] [facility] [address] [id number] [place] [address] August, [facility] [place] [facility] [address] [id number] [place] [address] August, [facility] [place] [facility] [address] [id number] [place] [address] Jun, [facility] [place] [facility] [address] [facility] [id number] [place] [address] Jun, [facility] [place] [facility] [address] [facility] [id number] [place] [address] Apr, [facility] [place] [facility] [address] [facility] [id number] [place] [address] Apr, [facility] [place] [facility] [address] [facility] [id number] [place] [address] Mar, [facility] [place] [facility] [address] [id number] [place] [address] Feb, [facility] [place] [facility] [address] [id number] [place] [address] Feb, [facility] [place] [facility] [address] [id number] [place] [address] 14 Feb, 2011 [facility] [place] [facility] [address] [facility] [id number] [place] [address] 17 Jan, 2011 [facility] [place] [facility] [address] [facility] [id number] [place] [address] 15 Jan, 2011 [facility] [place] [facility] [id number] [address] 15 Jan, 2011 [facility] [id number] [address] 14 Jan, 2011 [facility] [id number] [address] May, [facility] [id number] [place] [address] Mar, [facility] [id number] [address] Oct, [facility] [id number] [place] [address] Sep, [facility] [id number] [place] [address]- [address] Mar, [facility] [id number] [place] [address]- [address] Jan, [facility] [id number] [address] Jan, [facility] [id number] [address] May, IMMUNIZATIONS No Known Immunizations SOCIAL HISTORY Never Assessed REASON FOR VISIT Controlled Med 02/12 PLAN OF CARE VITAL SIGNS MEDICATIONS Medication Instructions Dosage Frequency Start Date End Date Duration Status Cyclobenzaprine HCl 10 mg Orally Three times a day 1 tablet as needed 8h Active Hydrocodone-Acetaminophen 5-325 MG Orally 3 -4 times a day prn. must last 4 weeks 1 tablet as needed Feb, 28 days Active RESULTS No Results PROCEDURES No Known procedures INSTRUCTIONS MEDICATIONS ADMINISTERED No Known Medications MEDICAL (GENERAL) HISTORY Type Description Date Medical History hypertension Medical History Colposcopy with loop electrode excision of the cervix was performed 06/2012, mild squamous atypia (no definite dyplasia). Performed at [facility] Dr. Joy. Medical History Acute [...]
--- OUTSIDE RECORDS SUMMARY | 2018-06-10 05:15 | XMS REPORT ---
Author Author CATRINA BAILEY Organization [facility] Address [address] [place] [address] Care Team Providers Care It Service Manager Name Role Phone BAILEYCATRINA Unavailable PROBLEMS Type Condition ICD9-CM Code ETJ92-YZ Code Onset Dates Condition Status SNOMED Code Problem Hematuria, unspecified type R31.9 Active 79578473 Problem Anxiety F41.9 Active 81467189 Problem Abnormal renal ultrasound R93.429 Active [id number] Problem Abnormal glucose R73.09 Active 390445710 Problem Chronic pain due to trauma G89.21 Active 332308499 Problem Hypokalemia E87.6 Active 53860090 Problem Neck pain M54.2 Active 84644058 Problem Neuroforaminal stenosis of spine M99.89 Active 669837170272 Problem Mixed hyperlipidemia E78.2 Active 91772319 Problem Essential hypertension I10 Active 38411220 ALLERGIES Substance Reaction Event Type Date Status Fluarix Quadrivalent rash Drug Allergy Jan, Active Zostavax rash Drug Allergy Jan, Active Macrobid rash Drug Allergy Jan, Active Iodine Unknown Drug Allergy Jan, Active Cipro hives Drug Allergy Jan, Active Bactrim hives Drug Allergy Jan, Active Baclofen Unknown Drug Allergy Jan, Active Amitriptyline HCl dizziness Drug Allergy Jan, Active Peanut Unknown Non Drug Allergy Jan, Active ENCOUNTERS Encounter Location Date Diagnosis [facility] [address] [facility] [id number] [address] Feb, [facility] [address] [id number] [address] 5[address] Jan, Hypokalemia E87.6 [facility] [address] [id number] [address] 6[address] Jan, Flank pain R10.9 and Acute right-sided low back pain without sciatica M54.5 [place] [address] 13046- 3694 Jan, Hypokalemia E87.6 [place] [address] 689255- 5318 Jan, [place] [address] 3441 Jan, URI, acute J06.9 [place] [address] 54073 0574 05 Jan, 2018 Neuroforaminal stenosis of spine M99.89 [place] [address] 43306 9208 13 Dec, 2017 Lateral epicondylitis, right elbow M77.11 [place] [address] 752092- 4898 11 Dec, 2017 Allergic rhinitis due to pollen, unspecified seasonality J30.1 and Allergic conjunctivitis of both eyes H10.13 [place] [address] 19882- 2138 10 Dec, 2017 Neuroforaminal stenosis of spine M99.89 [place] [address] [id number] [place] [address] 79761- 3191 06 Dec, 2017 Mixed hyperlipidemia E78.2 [place] [address] 18689- 6836 05 Dec, 2017 Abnormal glucose R73.09 ; Abnormal renal ultrasound R93.429 ; Dysuria R30.0 ; Cystitis without hematuria N30.90 ; Hypokalemia E87.6 ; Mixed hyperlipidemia E78.2 and Hematuria, unspecified type R31.9 [place] [address] [place] [id number] [place] [id number] Nov, Hypokalemia E87.6 ; Mixed hyperlipidemia E78.2 and Hematuria , unspecified type R31.9 [place] [address] [place] [address] [place] [address] 2882 Nov, [facility] [id number] [place] [address] 58299- 3152 Nov, Hypokalemia E87.6 [facility] [id number] [place] [address] 44443- 1531 Nov, [facility] [id number] [place] [address] 70782- 0455 Nov, Abnormal renal ultrasound R93.429 [place] [id number] [place] [address] 44358- 8629 Nov, Abnormal renal ultrasound R93.429 [place] [id number] [place] [address] 26505- 1958 Nov, Hematuria, unspecified type R31.9 and Neuroforaminal stenosis of spine M99.89 [place] [id number] [place] [address] 25998- 4799 Nov, Dysuria R30.0 [place] [id number] [place] [address] 68008- 0752 Oct, Lateral epicondylitis, right elbow M77.11 [place] [id number] [place] [address] 73008- 0222 Oct, Neuroforaminal stenosis of spine M99.89 ; Visit for TB skin test Z11.1 and Essential hypertension I10 [facility] [id number] [place] [address] 73318- 3356 Oct, [facility] [id number] [place] [address] 58922- 9572 Oct, Neuroforaminal stenosis of spine M99.89 [facility] [id number] [place] [address] 69424- 6470 Oct, Visit for TB skin test Z11.1 [place] [id number] [place] [address] 16639- 1508 05 Oct, 2017 Cystitis without hematuria N30.90 [place] [address] [id number] [place] [address] 68862- 4429 28 Sep, 2017 Screening breast examination Z12.39 [place] [address] 08948- 2751 26 Sep, 2017 Dysuria R30.0 and Cystitis without hematuria N30.90 [place] [address] 89248- 4552 14 Sep, 2017 Essential hypertension I10 and Neuroforaminal stenosis of spine M99.[address] 24392- 6027 Sep, Abnormal glucose R73.[address] 12220- 3025 August, Lateral epicondylitis, right elbow M77.11 [place] [address] 28640- 6816 August, Screen for STD (sexually transmitted disease) Z11.[address] 71952- 3016 August, Neuroforaminal stenosis of spine M99.89 ; Mixed hyperlipidemia E78.2 ; Elevated fasting glucose R73.01 ; Screening mammogram, encounter for Z12.31 and Encounter for well woman exam without gynecological exam Z00.00 [place] [id number] [place] [address] 43662- 3770 August, Neuroforaminal stenosis of spine M99.89 [place] [address] 37920- 9072 August, Essential hypertension I10 ; Hypokalemia E87.6 and Mixed hyperlipidemia E78.2 [place] [address] 43896- 1408 Jul, [place] [address] [place] [address] 8058 Jul, Neuroforaminal stenosis of spine M99.89 [place] [id number] [place] [address] 82704- 0804 Jul, Lateral epicondylitis, right elbow M77.11 [place] [address] [id number] [place] [address] 04982- 2573 Jul, [place] [address] 42927- 5836 Jun, High ankle sprain of right lower extremity, initial encounter S93.431A [place] [address] 16256- 0147 Jun, Essential hypertension I10 [place] [address] 95756- 3728 Jun, [place] [address] 86202- 7496 Jun, [place] [address] 02210- 2583 Jun, Neuroforaminal stenosis of spine M99.89 [place] [address] [place] [address] [id number] [place] [address] 70873- 7641 Jun, Pain of right upper extremity M79.601 and Essential hypertension I10 [place] [address] [place] [address] [id number] [place] [address] 93304- 5954 Jun, [place] [address] [address] [id number] [place] [address] 81346- 5456 Jun, Dysuria R30.0 ; Acute cystitis with hematuria N30.01 and Screen for STD (sexually transmitted disease) Z11.3 [place] [address] [address] [id number] [place] [address] 45765- 3153 May, Chronic pain due to trauma G89.21 [place] [address] 90505- 3260 May, Essential hypertension I10 [place] [address] [address] [id number] [place] [address] 85828- 0471 May, Neuroforaminal stenosis of spine M99.89 [place] [address] [address] [id number] [place] [address] 11649- 6628 Apr, Allergic reaction, initial encounter T78.40XA [place] [address] 28206- 5194 Apr, Low back pain, unspecified back pain laterality, unspecified chronicity, with sciatica presence unspecified M54.5 ; Acute cystitis with hematuria N30.01 ; Neuroforaminal stenosis of spine M99.89 ; Bilateral acute serous otitis media, recurrence not specified H65.03 ; Mixed hyperlipidemia E78.2 ; Essential hypertension I10 ; Immunization counseling Z71.89 and Encounter for immunization Z23 [place] [address] 86021- 1885 Apr, Neck pain M54.2 [place] [address] 92269- 3782 Mar, Neuroforaminal stenosis of spine M99.89 [place] [address] [id number] [place] [address] 56298- 2526 Mar, Pharyngitis due to other organism J02.8 [place] [address] [id number] [place] [address] 79143- 6535 Feb, Neuroforaminal stenosis of spine M99.89 [place] [id number] [place] [address] 53523- 9533 Feb, UTI (urinary tract infection) N39.0 [place] [address] [place] [address] [id number] [place] [address] 86853- 4385 07 Feb, 2017 Recent urinary tract infection Z87.440 ; Neuroforaminal stenosis of spine M99.89 ; Neck pain M54.2 ; Chronic pain due to trauma G89.21 and Recurrent UTI N39.0 [place] [address] [place] [address] [id number] [place] [address] 37843- 1801 Feb, [facility] [id number] [place] [address] 69245- 5679 Jan, Neuroforaminal stenosis of spine M99.89 [facility] [address] 78175- 0191 28 Dec, 2016 Neuroforaminal stenosis of spine M99.89 [facility] [address] [address] [id number] [place] [address] 90764- 4894 18 Dec, 2016 Acute seasonal allergic rhinitis due to pollen J30.1 [place] [address] 75938- 7871 08 Dec, 2016 [place] [address] 61145- 9700 Dec, Acute seasonal allergic rhinitis, unspecified trigger J30.2 ; Allergic conjunctivitis of both eyes H10.13 and Dysfunction of both eustachian tubes H69.83 [place] [address] [place] [address] [id number] [place] [address] 74709- 9891 07 Dec, 2016 [place] [address] [place] [id number] [place] [address] 70575- 9888 Dec, Nevus D22.9 [place] [address] [place] [address] [id number] [place] [address] 71747- 9442 Nov, Chronic pain due to trauma G89.21 and Neuroforaminal stenosis of spine M99.89 [facility] [id number] [place] [address] 47077- 8655 Nov, Neuroforaminal stenosis of spine M99.89 ; Essential hypertension I10 ; Mixed hyperlipidemia E78.2 ; Hypokalemia E87.6 ; Neck pain M54.2 and Nevus D22.9 [facility] [id number] [place] [address] 82467- 9879 Oct, Neuroforaminal stenosis of spine M99.89 [facility] [address] [id number] [place] [address]- 2690 Sep, Neuroforaminal stenosis of spine M99.89 [facility] [address] [id number] [place] [address] 2546 Sep, [facility] [address] [id number] [place] [address] 78270 2546 August, [facility] [address] [id number] [place] [address] 15699 2546 August, Neck pain M54.2 and Neuroforaminal stenosis of spine M99.89 [facility] [id number] [place] [address] 96370- 8628 August, Routine gynecological examination Z01.419 and Screening breast examination Z12.39 [facility] [address] [id number] [place] [address] 65765- 1791 Jul, [facility] [address] [id number] [place] [address] 38090- 1638 Jul, [facility] [address] [facility] [id number] [place] [address] 19691- 1219 Jul, Neuroforaminal stenosis of spine M99.89 [facility] [address] [id number] [place] [address] 2546 Jul, [facility] [address] [facility] [id number] [place] [address] 53749 2546 Jul, 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 [facility] [address] [id number] [place] [address] 2546 Jul, [facility] [address] [facility] [id number] [place] [address] 66499 2546 Jul, [facility] [address] [id number] [place] [address] 2541 Jun, Neuroforaminal stenosis of spine M99.89 [place] [address] [place] [address] [id number] [place] [address] 96682- 4235 Jun, Uterine leiomyoma, unspecified location D25.9 and Allergic reaction caused by a drug, initial encounter T78.40XA [place] [address] [place] [address] [id number] [place] [address] 81050- 0093 Jun, [place] [address] 36890- 6252 May, UTI symptoms R39.9 and Pain of right sacroiliac joint M53.3 [place] [address] 16651- 6993 May, Neuroforaminal stenosis of spine M99.89 [place] [address] [place] [address] [id number] [place] [address] 03694- 5412 May, [place] [address] 96849- 7089 May, Acute mucoid otitis media of left ear H65.112 and Acute non- recurrent maxillary sinusitis J01.00 [place] [address] 00494- 2610 May, Acute bacterial conjunctivitis of both eyes H10.33 ; Left arm pain M79.602 and Hypokalemia E87.6 [place] [address] [place] [address] [id number] [place] [address] 95800- 8281 Apr, [place] [address] [place] [address] [id number] [place] [address] 34385- 1337 Apr, Neuroforaminal stenosis of spine M99.89 ; Neck pain M54.2 ; Chronic pain due to trauma G89.21 ; Mixed hyperlipidemia E78.2 ; Essential hypertension I10 and Hypokalemia E87.6 [place] [address] [place] [address] [id number] [place] [address] 75969- 6470 Mar, Oral candidiasis B37.0 ; Neuroforaminal stenosis of spine M99.89 ; Neck pain M54.2 and Chronic pain due to trauma G89.21 [facility] [id number] [place] [address] 45050- 4851 Feb, [facility] [id number] [place] [address] 32524- 9997 Feb, [facility] [address] [id number] [place] [address] 47194- 9557 Feb, UTI (urinary tract infection) N39.0 [facility] [id number] [place] [address] 87035- 0705 Feb, Dysuria R30.0 [facility] [id number] [place] [address] 34440- 7226 Feb, Dysuria R30.0 [place] [address] [place] [address] [id number] [place] [address] 49166- 3832 Feb, Neuroforaminal stenosis of spine M99.89 ; Neck pain M54.2 ; Essential hypertension I10 ; Chronic pain due to trauma G89.21 ; Dysuria R30.0 ; Abnormal MRI, shoulder R93.8 and Acute cystitis without hematuria N30.00 [facility] [id number] [place] [address] 25065- 4216 Jan, [facility] [id number] [place] [address] 19732- 2074 Jan, [facility] [id number] [place] [address] 28791- 2025 Jan, [facility] [id number] [place] [address] 68523- 1280 Jan, Abnormal MRI R93.8 [facility] [address] [id number] [place] [address] 94529- 1249 29 Dec, 2015 [facility] [address] [place] [address] 43401 -4511 15 Dec, 2015 Acute pain of left shoulder M25.512 [facility] [address] [facility] [id number] [place] [address]- 9372 09 Dec, 2015 [facility] [address] [id number] [place] [address] 41266- 0259 08 Dec, 2015 [facility] [id number] [address]- 8582 07 Dec, 2015 Acute pain of left shoulder M25.512 [facility] [address] [facility] [id number] [place] [address] 67873- 9512 Nov, [facility] [address] [facility] [id number] [place] [address]- 8476 Nov, Neuroforaminal stenosis of spine M99.89 ; Neck pain M54.2 ; Abnormal mammogram R92.8 ; Essential hypertension I10 and Chronic pain due to trauma G89.21 [facility] [address] [address]- 1712 Nov, [facility] [address] [address]- 7597 Oct, Acute stress disorder F43.0 [facility] [address] [address]- 2349 Oct, [facility] [address] [address]- 5464 Oct, [facility] [address] [address]- 3811 Oct, [facility] [id number] [address]- 9667 Sep, [facility] [address] [address]- 4562 August, [facility] [address] [facility] [id number] [place] [address]- 2032 Jul, Neuroforaminal stenosis of spine M99.89 ; Neck pain M54.2 ; Abnormal mammogram R92.8 and Essential hypertension I10 [facility] [address] [address] 2546 Jul, [facility] [address] [place] [address] 81958 2546 Jul, [facility] [address] [address] 2546 Jul, Abnormal mammogram R92.8 [facility] [address] [place] [address] 28729 2546 Jul, [facility] [address] [place] [address] 73872 2546 Jul, UTI (urinary tract infection) N39.0 [facility] [address] [place] [address] 47193 2546 Jul, Dysuria R30.0 [facility] [address] [place] [address] 99485 2546 Jun, [facility] [address] [place] [address] 56449 2546 Jun, [facility] [address] [place] [address] 56779 2546 Jun, Hypokalemia E87.6 and Hematuria R31.9 [facility] [address] [address] 2546 Jun, Hypokalemia E87.6 [facility] [address] [address] 2546 23 Jun, 2015 [facility] [address] [place] [address] 27034 2546 18 Jun, 2015 Hypokalemia E87.6 [facility] [address] [address] 2546 Jun, Hypokalemia E87.6 [facility] [address] [place] [address] 68549- 8450 15 Jun, 2015 Neuroforaminal stenosis of spine M99.89 ; Hypokalemia E87.6 ; Neck pain M54.2 ; Essential hypertension I10 ; Mixed hyperlipidemia E78.2 and Screening breast examination Z12.39 [facility] [id number] [place] [address] 81125- 1184 08 Jun, 2015 Dysuria R30.0 ; UTI (urinary tract infection) N39.0 and Hematuria R31.9 [place] [address] 47738- 1561 May, [place] [address] 99963- 1631 18 May, 2015 High risk sexual behavior Z72.51 ; Hypokalemia E87.6 ; Neuroforaminal stenosis of spine M99.89 ; Neck pain M54.2 ; Essential hypertension I10 ; Mixed hyperlipidemia E78.2 ; STD exposure Z20.2 and Concern about STD in female without diagnosis Z71.1 [place] [id number] [place] [address] 82857- 4747 16 May, 2015 Neuroforaminal stenosis of spine M99.89 ; Neck pain M54.2 ; Hypokalemia E87.6 ; Essential hypertension I10 and Mixed hyperlipidemia E78.2 [place] [id number] [place] [address] 75456- 9282 May, [facility] [id number] [place] [address] 11736 -5567 08 May, 2015 High risk sexual behavior Z72.51 ; STD exposure Z20.2 and Concern about STD in female without diagnosis Z71.1 [place] [id number] [place] [address] 79073- 5522 05 May, 2015 [facility] [id number] [place] [address] 23319- 5275 Apr, Neuroforaminal stenosis of spine M99.89 ; Mixed hyperlipidemia E78.2 ; Essential hypertension I10 and Hypokalemia E87.6 [place] [id number] [place] [address] 61831- 5692 Mar, [place] [id number] [place] [address] 35141- 7451 Mar, Hypokalemia E87.6 [place] [address] 05365- 3288 Mar, Neuroforaminal stenosis of spine M99.89 ; Mixed hyperlipidemia E78.2 ; Neck pain M54.2 ; Essential hypertension I10 ; Abnormal fasting glucose R73.09 ; Hypokalemia E87.6 and Constipation K59.00 [place] [id number] [place] [address] 47873- 1256 Feb, Neuroforaminal stenosis of spine M99.89 ; Mixed hyperlipidemia E78.2 ; Neck pain M54.2 ; Essential hypertension I10 ; Abnormal fasting glucose R73.09 ; Hypokalemia E87.6 and Constipation K59.00 [place] [address] [place] [id number] [place] [address]26- 8486 Feb, Elevated fasting blood sugar R73.01 [place] [address] [place] [id number] [place] [address] 60822- 4297 Feb, Elevated fasting blood sugar R73.01 [place] [address] [place] [id number] [place] [address] 00849- 6281 Feb, Hair loss L65.9 [place] [address] [place] [id number] [place] [address] 08936- 1662 Feb, Sinusitis J32.9 ; Essential hypertension I10 and Hair loss L65.9 [place] [address] [place] [id number] [place] [address] 61659- 9418 Jan, [place] [address] [place] [id number] [place] [address] 59581- 0395 Jan, Essential hypertension I10 ; Neuroforaminal stenosis of spine M99.89 ; Neck pain M54.2 ; Mixed hyperlipidemia E78.2 and Anxiety F41.9 [place] [address] [place] [id number] [place] [address] 48204- 478[address] Jan, [facility] [address] [place] [id number] [place] [address] 83978- 8115 Jan, Mixed hyperlipidemia E78.2 ; Essential (primary) hypertension I10 ; Strain of muscle, fascia and tendon at neck level, subsequent encounter S16.1XXD and Tension-type headache, unspecified, not intractable G44.209 [place] [address] [address]- [address] Dec, Lumbar back pain 724.2 and Neuroforaminal stenosis of spine 724.00 [place] [address] 15[address]- 368[address] Nov, [place] [address] 55937- 1424 Nov, Lumbar back pain 724.2 and Neuroforaminal stenosis of spine 724.00 [place] [address] 33[address]- 2791 Nov, Edema 782.3 ; Lumbar back pain 724.2 ; Essential hypertension, benign 401.1 ; Hyperlipemia 272.4 ; Neuroforaminal stenosis of spine 724.00 and Post-concussion headache 339.20 [place] [address] [place] [id number] [place] [address] 87526- 9901 Nov, [place] [address] [place] [id number] [place] [address] 98082- 7920 Nov, [place] [address] [place] [id number] [place] [address] 58784- 0879 Oct, Essential hypertension, benign 401.1 [place] [address] [place] [id number] [place] [address] [address]- 6990 Oct, Edema 782.3 ; Lumbar back pain 724.2 ; Essential hypertension, benign 401.1 ; Hyperlipemia 272.4 ; Neuroforaminal stenosis of spine 724.00 and Post-concussion headache 339.20 [facility] [id number] [place] [address] 72393- 8027 Oct, [facility] [id number] [place] [address] 90267- 5055 Oct, Edema 782.3 [facility] [address] [address]- 2508 Oct, Lumbar back pain 724.2 [place] [address] [address]- 0413 Oct, Cervicalgia 723.1 ; Lumbar back pain 724.2 and High risk medication use V58.69 [facility] [id number] [place] [address] 60819- 5480 Sep, [facility] [address] 01495- 1842 Sep, Lumbar strain 847.2 [facility] [id number] [place] [address] 02054- 6765 August, Edema 782.3 and Eustachian tube dysfunction 381.81 [place] [id number] [place] [address] 32507- 1213 August, [facility] [id number] [place] [address] 15668- 0086 August, Eustachian tube dysfunction 381.81 [facility] [id number] [place] [address] 27628- 1031 Jul, Otalgia 388.70 and Otitis media 382.9 [facility] [id number] [place] [address] 60046- 0659 Jul, [facility] [id number] [place] [address] 65174- 8010 Jul, [facility] [place] [facility] [address] [id number] [place] [address]- 7819 28 Jul, 2014 [facility] [place] [facility] [address] [id number] [place] [address]- 9489 14 Jul, 2014 [facility] [place] [facility] [address] [id number] [place] [address]- 4021 13 Jul, 2014 [facility] [place] [facility] [address] [id number] [place] [address]- 9052 27 Jun, 2014 [facility] [place] [facility] [address] [id number] [place] [address]- 5103 27 Jun, 2014 [facility] [place] [facility] [address] [id number] [place] [address]- 7044 16 Jun, 2014 [facility] [place] [facility] [address] [facility] [id number] [place] [address]- 3778 26 May, 2014 [facility] [place] [facility] [address] [facility] [id number] [place] [address]- 8491 26 May, 2014 [facility] [place] [facility] [address] [facility] [id number] [place] [address]- 7382 23 May, 2014 [facility] [place] [facility] [address] [facility] [id number] [place] [address]- 6820 May, 2014 [facility] [place] [facility] [address] [facility] [id number] [place] [address]- 9858 May, 2014 [facility] [place] [facility] [address] [facility] [id number] [place] [address]- 9419 May, 2014 [facility] [place] [facility] [address] [facility] [id number] [place] [address]- 3537 09 May, 2014 [facility] [place] [facility] [address] [facility] [id number] [place] [address]- 8800 05 May, 2014 [facility] [place] [facility] [address] [facility] [id number] [place] 7014 05 May, 2014 [facility] [place] [facility] [address] [facility] [id number] [place] [address]- 6360 May, [facility] [address] [id number] [place] [address]- 9399 Apr, [facility] [place] [facility] [address] [id number] [place] [address]- 6351 Apr, [facility] [place] [facility] [address] [id number] [place] [address]- 5530 Apr, [facility] [place] [facility] [address] [id number] [place] [address]- 8403 Apr, [facility] [place] [facility] [address] [id number] [place] [address]- 3930 Apr, [facility] [place] [facility] [address] [id number] [place] [address]- 0670 Apr, [facility] [address] [id number] [place] [address]- 9754 Apr, [facility] [place] [facility] [address] [id number] [place] [address]- 9706 Apr, [facility] [place] [facility] [address] [id number] [place] [address]- 9670 Apr, [facility] [place] [facility] [address] [facility] [id number] [place] [address]- 1817 Apr, [facility] [place] [facility] [address] [id number] [place] [address]- 6360 Apr, [facility] [place] [facility] [address] [id number] [place] [address]- 4549 Apr, [facility] [place] [facility] [address] [id number] [place] [address]- 1432 Apr, [facility] [place] [facility] [address] [id number] [place] [address]- 9291 Apr, [facility] [place] [facility] [address] [id number] [place] [address]- 7809 Apr, [facility] [place] [facility] [address] [id number] [place] 7670 Mar, [facility] [place] [facility] [address] [id number] [place] 8670 Mar, [facility] [place] [facility] [address] [id number] [place] 5300 Mar, [facility] [place] [facility] [address] [id number] [place] 1045 Mar, [facility] [place] [facility] [address] [id number] [place] 4824 Feb, [facility] [place] [facility] [address] [id number] [place] [address]- 2590 Feb, [facility] [place] [facility] [address] [id number] [place] [address]- 6601 Feb, [facility] [place] [facility] [address] [id number] [place] [address]- 0908 Feb, [facility] [place] [facility] [address] [id number] [place] [address]- 6338 Jan, [facility] [place] [facility] [address] [id number] [place] [address]- 3051 Jan, [facility] [place] [facility] [address] [id number] [place] [address]- 8793 Jan, [facility] [place] [facility] [address] [id number] [place] [address]- 8090 Jan, [facility] [place] [facility] [address] [id number] [place] 9620 Jan, [facility] [place] [facility] [address] [id number] [place] 4387 Jan, [facility] [place] [facility] [address] [id number] [place] [address]- 1297 Jan, [facility] [place] [facility] [address] [id number] [place] 2818 Jan, [facility] [place] [facility] [address] [id number] [place] [address]- 1288 Dec, [facility] [place] [facility] [address] [id number] [place] [address]- 7616 Dec, [facility] [place] [facility] [address] [id number] [place] [address]- 3587 Dec, [facility] [place] [facility] [address] [id number] [place] [address]- 8087 Dec, [facility] [place] [facility] [address] [id number] [place] [address]- 4936 Oct, [facility] [place] [facility] [address] [id number] [place] [address]- 9793 Oct, [facility] [place] [facility] [address] [id number] [place] [address]- 6224 Oct, [facility] [place] [facility] [address] [id number] [place] [address]- 9260 Oct, [facility] [place] [facility] [address] [id number] [place] [address]- 1637 Oct, [facility] [place] [facility] [address] [id number] [place] [address]- 7299 Oct, [facility] [place] [facility] [address] [id number] [place] [address]- 0625 Oct, [facility] [place] [facility] [address] [id number] [place] [address]- 1378 Oct, [facility] [place] [facility] [address] [id number] [place] [address]- 8605 Sep, [facility] [place] [facility] [address] [id number] [place] [address]- 9176 Sep, [facility] [place] [facility] [address] [id number] [place] [address]- 9571 Sep, [facility] [place] [facility] [address] [id number] [place] [address]- 3647 Sep, [facility] [place] [facility] [address] [id number] [place] [address]- 7520 Sep, [facility] [place] [facility] [address] [id number] [place] [address]- 2428 Sep, [facility] [place] [facility] [address] [id number] [place] [address]- 1976 Sep, [facility] [place] [facility] [address] [id number] [place] [address]- 8894 Sep, [facility] [place] [facility] [address] [id number] [place] [address]- 7582 Sep, [facility] [place] [facility] [address] [id number] [place] [address]- 9819 Sep, [facility] [place] [facility] [address] [id number] [place] [address]- 7354 August, [facility] [place] [facility] [address] [id number] [place] [address]- 5917 August, [facility] [place] [facility] [address] [id number] [place] [address]- 6094 August, [facility] [place] [facility] [address] [id number] [place] [address]- 1542 August, [facility] [place] [facility] [address] [id number] [place] [address]- 3043 August, [facility] [place] [facility] [address] [id number] [place] [address]- 0152 August, [facility] [place] [facility] [address] [id number] [place] [address]- 5126 August, [facility] [place] [facility] [address] [id number] [place] [address]- 3378 August, [facility] [place] [facility] [address] [id number] [place] [address]- 5227 August, [facility] [place] [facility] [address] [id number] [place] [address]- 1507 August, [facility] [place] [facility] [address] [id number] [place] [address]- 5617 August, [facility] [place] [facility] [address] [id number] [place] [address]- 2972 August, [facility] [place] [facility] [address] [id number] [place] [address]- 9718 Jul, [facility] [place] [facility] [address] [id number] [place] [address]- 3605 Jul, [facility] [place] [facility] [address] [id number] [place] [address]- 2037 Jul, [facility] [place] [facility] [address] [id number] [place] [address]- 1841 Jul, [facility] [place] [facility] [address] [id number] [place] [address]- 8199 Jul, [facility] [place] [facility] [address] [id number] [place] [address]- 9319 Jul, [facility] [place] [facility] [address] [id number] [place] [address]- 3900 Jun, [facility] [place] [facility] [address] [id number] [place] [address]- 6752 Jun, [facility] [place] [facility] [address] [id number] [place] [address]- 7027 May, [facility] [place] [facility] [address] [id number] [place] [address]- 3312 May, [facility] [place] [facility] [address] [id number] [place] [address]- 8607 Apr, [facility] [place] [facility] [address] [id number] [place] [address]- 2799 Apr, [facility] [place] [facility] [address] [id number] [place] [address]- 1076 Apr, [facility] [address] [id number] [place] [address]- 8247 Apr, [facility] [place] [facility] [address] [id number] [place] [address]- 8411 Apr, [facility] [place] [facility] [address] [id number] [place] [address]- 6483 Apr, [facility] [place] [facility] [address] [id number] [place] [address]- 3743 Apr, [facility] [place] [facility] [address] [id number] [place] [address]- 5284 Apr, [facility] [place] [facility] [address] [id number] [place] [address]- 7277 Apr, [facility] [address] [id number] [place] [address]- 9126 Apr, [facility] [place] [facility] [address] [id number] [place] [address]- 3414 Apr, [facility] [place] [facility] [address] [id number] [place] [address]- 0931 Apr, [facility] [place] [facility] [address] [id number] [place] [address]- 8222 Apr, [facility] [place] [facility] [address] [id number] [place] [address]- 5882 Mar, [facility] [place] [facility] [address] [id number] [place] [address]- 1565 Mar, [facility] [place] [facility] [address] [id number] [place] [address]- 9144 Mar, [facility] [place] [facility] [address] [id number] [place] [address]- 3823 Mar, [facility] [place] [facility] [address] [id number] [place] [address]- 5021 Feb, [facility] [place] [facility] [address] [id number] [place] [address]- 2245 27 Feb, 2013 [facility] [place] [facility] [address] [id number] [place] [address]- 7258 08 Feb, 2013 [facility] [place] [facility] [address] [id number] [place] [address]- 9713 08 Feb, 2013 [facility] [place] [facility] [address] [id number] [place] [address]- 6349 14 Jan, 2013 [facility] [place] [facility] [address] [id number] [place] [address]- 2871 14 Jan, 2013 [facility] [place] [facility] [address] [id number] [place] [address]- 7343 Jan, [facility] [place] [facility] [address] [id number] [place] [address]- 3735 Jan, [facility] [place] [facility] [address] [id number] [place] [address]- 5057 10 Jan, 2013 [facility] [place] [facility] [address] [id number] [place] [address]- 0675 10 Jan, 2013 [facility] [place] [facility] [address] [id number] [place] [address]- 8812 Jan, [facility] [place] [facility] [address] [id number] [place] [address]- 4849 09 Jan, 2013 [facility] [place] [facility] [address] [id number] [place] [address]- 1373 Jan, [facility] [place] [facility] [address] [id number] [place] [address]- 7580 26 Dec, 2012 [facility] [place] [facility] [address] [id number] [place] [address]- 3796 16 Dec, 2012 [facility] [place] [facility] [address] [id number] [place] [address]- 3684 16 Dec, 2012 [facility] [place] [facility] [address] [id number] [place] [address]- 8273 Dec, [facility] [address] [id number] [place] [address]- 7783 Nov, [facility] [place] [facility] [address] [id number] [place] [address]- 7116 Nov, [facility] [place] [facility] [address] [id number] [place] [address]- 7891 Nov, [facility] [place] [facility] [address] [id number] [place] [address]- 3497 Nov, [facility] [address] [id number] [place] [address]- 7814 Oct, [facility] [place] [facility] [address] [id number] [place] [address]- 7056 Sep, [facility] [place] [facility] [address] [id number] [place] [address]- 1131 August, [facility] [place] [facility] [address] [id number] [place] [address]- 3107 August, [facility] [place] [facility] [address] [id number] [place] [address]- 3479 August, [facility] [place] [facility] [address] [id number] [place] [address]- 3067 August, [facility] [place] [facility] [address] [id number] [place] [address]- 0001 August, [facility] [place] [facility] [address] [id number] [place] [address]- 0670 August, [facility] [place] [facility] [address] [id number] [place] [address]- 3823 August, [facility] [place] [facility] [address] [id number] [place] [address]- 2523 August, [facility] [place] [facility] [address] [id number] [place] [address]- 8014 August, [facility] [place] [facility] [address] [id number] [place] [address]- 5149 August, [facility] [address] [id number] [place] [address]- 1153 August, [facility] [address] [id number] [place] 9626 August, [facility] [address] [id number] [place] [address]- 9339 Jul, [facility] [address] [id number] [place] [address]- 1176 Jul, [facility] [address] [id number] [place] [address]- 4107 Jul, [facility] [address] [id number] [place] [address]- 9762 Jul, [facility] [address] [id number] [place] [address]- 8788 Jul, [facility] [address] [id number] [place] [address]- 6775 Jul, [facility] [address] [id number] [place] [address]- 1765 Jul, [facility] [address] [id number] [place] [address]- 7183 Jul, [facility] [address] [id number] [place] [address]- 3778 Jul, [facility] [address] [id number] [place] [address]- 7329 Jul, [facility] [address] [id number] [place] [address]- 4768 Jul, [facility] [address] [id number] [place] 2148 Jun, [facility] [address] [id number] [place] [address]- 0688 Jun, [facility] [address] [id number] [place] [address]- 7647 Jun, [facility] [place] [facility] [address] [id number] [place] [address]- 6186 Jun, [facility] [place] [facility] [address] [id number] [place] [address]- 6866 May, [facility] [place] [facility] [address] [id number] [place] [address]- 4796 May, [facility] [place] [facility] [address] [id number] [place] [address]- 6136 May, [facility] [place] [facility] [address] [id number] [place] [address]- 4726 May, [facility] [place] [facility] [address] [id number] [place] [address]- 1466 May, [facility] [place] [facility] [address] [id number] [place] [address]- 6535 May, [facility] [place] [facility] [address] [id number] [place] [address]- 1355 Apr, [facility] [place] [facility] [address] [id number] [place] [address]- 1020 Apr, [facility] [place] [facility] [address] [id number] [place] [address] 2548 Apr, [facility] [place] [facility] [address] [id number] [place] [address] 254 Apr, [facility] [place] [facility] [address] [id number] [place] [address] 2546 Mar, [facility] [place] [facility] [address] [id number] [place] [address] 2546 Mar, [facility] [place] [facility] [address] [id number] [place] [address] 2546 Mar, [facility] [place] [facility] [address] [id number] [place] [address] 14 Mar, 2012 [facility] [place] [facility] [address] [id number] [place] [address] 14 Mar, 2012 [facility] [place] [facility] [address] [id number] [place] [address] Mar, [facility] [place] [facility] [address] [id number] [place] [address] Mar, [facility] [place] [facility] [address] [id number] [place] [address] Feb, [facility] [place] [facility] [address] [id number] [place] [address] Feb, [facility] [place] [facility] [address] [id number] [place] [address] Feb, [facility] [place] [facility] [address] [id number] [place] [address] Feb, [facility] [place] [facility] [address] [id number] [place] [address] Jan, [facility] [place] [facility] [address] [id number] [place] [address] Jan, [facility] [place] [facility] [address] [id number] [place] [address] Jan, [facility] [place] [facility] [address] [id number] [place] [address] Jan, [facility] [place] [facility] [address] [id number] [place] [address] Jan, [facility] [place] [facility] [address] [id number] [place] [address] Jan, [facility] [place] [facility] [address] [id number] [place] [address] 09 Dec, 2011 [facility] [place] [facility] [address] [id number] [place] [address] 07 Dec, 2011 [facility] [place] [facility] [address] [id number] [place] [address] Nov, [facility] [place] [facility] [address] [id number] [place] [address] Sep, [facility] [place] [facility] [address] [id number] [place] [address] August, [facility] [place] [facility] [address] [id number] [place] [address] August, [facility] [place] [facility] [address] [id number] [place] [address] August, [facility] [place] [facility] [address] [id number] [place] [address] August, [facility] [place] [facility] [address] [id number] [place] [address] August, [facility] [place] [facility] [address] [id number] [place] [address] Jun, [facility] [place] [facility] [address] [id number] [place] [address] Jun, [facility] [place] [facility] [address] [id number] [place] [address] Apr, [facility] [place] [facility] [address] [id number] [place] [address] Apr, [facility] [place] [facility] [address] [id number] [place] [address] Mar, [facility] [place] [facility] [address] [id number] [place] [address] Feb, [facility] [place] [facility] [address] [id number] [place] [address] Feb, [facility] [place] [facility] [address] [id number] [place] [address] 14 Feb, 2011 [facility] [place] [facility] [address] [id number] [place] [address] 17 Jan, 2011 [facility] [address] [id number] [address] 15 Jan, 2011 [facility] [id number] [place] Jan, [facility] [id number] [place] [address] Jan, [facility] [id number] [place] [address] [address] May, [facility] [id number] [place] [address] Mar, [facility] [id number] [place] [address] Oct, [facility] [id number] [place] [address] Sep, [facility] [id number] [place] [address] Mar, [facility] [address] [place] [address] Jan, [facility] [address] [place] [address] Jan, [facility] [address] [id number] [address] May, IMMUNIZATIONS No Known Immunizations SOCIAL HISTORY Never Assessed REASON FOR VISIT UTI symptoms-SUMAN coleman PLAN OF CARE Activity Details Follow Up prn Reason: VITAL SIGNS Height 62 in 2018-02-01 Weight 179.1 lbs 2018-02-01 Temperature 97.9 degrees Fahrenheit 2018-02-01 Heart Rate 77 bpm 2018-02-01 Respiratory Rate 18 2018-02-01 Oximetry on room air:99 % 2018-02-01 BMI 32.75 kg/m2 2018-02-01 Blood pressure systolic 118 mmHg 2018-02-01 Blood pressure diastolic 82 mmHg 2018-02-01 MEDICATIONS Medication Instructions Dosage Frequency Start Date End Date Duration Status Meclizine HCl 25 MG Orally Once a day 1 tablet as needed 24h Active Cyclobenzaprine HCl 10 mg Orally Three times a day 1 tablet as needed 8h Active Triamterene-HCTZ 37.5-25 MG Orally Once a day 1 tablet in the morning 24h 30 Active Pravastatin Sodium 40 MG Orally Once a day TAKE ONE TABLET BY MOUTH AT BEDTIME 24h 30 Active Klor-Con 10 10 MEQ Orally twice a day 1 tablet 12h Active Naproxen 500 mg Orally every 12 hrs 1 tablet with food or milk as needed 12h 30 Active Amlodipine Besylate 5 mg Orally Once a day 1 tablet 24h 30 days Active Hydrocodone-Acetaminophen 5-325 MG Orally 3 -4 times a day prn. must last 4 weeks 1 tablet as needed Jan, 28 days Active RESULTS No Results PROCEDURES Procedure Date Ordered Result Body Site URINALYSIS, AUTO, W/O SCOPE Feb 01, 2018 URINE CULTURE/COLONY COUNT Feb 01, 2018 INSTRUCTIONS MEDICATIONS ADMINISTERED No Known Medications MEDICAL (GENERAL) HISTORY Type Description Date Medical History hypertension Medical History Colposcopy with loop electrode excision of the cervix was performed 06/2012, mild squamous atypia (no definite dyplasia). Performed at [facility] Dr. Joy. Medical History Acute [...]
--- OUTSIDE RECORDS SUMMARY | 2018-06-10 05:16 | XMS REPORT ---
Author Author BETI STAUFFER [facility] Address [address] [place] [address] Care Team Providers Care Contract Recruiter Name Role Phone JULIENNE STAUFFERTA Unavailable PROBLEMS Type Condition ICD9-CM Code EGQ41-DE Code Onset Dates Condition Status SNOMED Code Problem Hematuria, unspecified type R31.9 Active 57120898 Problem Anxiety F41.9 Active 20189233 Problem Abnormal renal ultrasound R93.429 Active 19322381691899921 Problem Abnormal glucose R73.09 Active 571241497 Problem Chronic pain due to trauma G89.21 Active 009498670 Problem Hypokalemia E87.6 Active 45115468 Problem Neck pain M54.2 Active 85848374 Problem Neuroforaminal stenosis of spine M99.89 Active 656199701195 Problem Mixed hyperlipidemia E78.2 Active 97073092 Problem Essential hypertension I10 Active 09850674 ALLERGIES No Information ENCOUNTERS Encounter Location Date Diagnosis [place] [id number] [address]- 0612 Feb, [place] [address] 0[address]14- 3328 Jan, Hypokalemia E87.6 [facility] [address] [place] [id number] [place] [address] 43165- 1335 Jan, Flank pain R10.9 and Acute right-sided low back pain without sciatica M54.5 [facility] [address] 75806- 0188 Jan, Hypokalemia E87.6 [facility] [address] [place] [id number] [place] [address] 31639- 1956 Jan, [facility] [address] 55633- 4146 Jan, URI, acute J06.9 [place] [address] [place] [id number] [place] [address] 90380- 7647 05 Jan, 2018 Neuroforaminal stenosis of spine M99.89 [place] [address] [place] [id number] [place] [address] 50965- 5022 13 Dec, 2017 Lateral epicondylitis, right elbow M77.11 [place] [address] 11719- 8022 11 Dec, 2017 Allergic rhinitis due to pollen, unspecified seasonality J30.1 and Allergic conjunctivitis of both eyes H10.13 [place] [address] 41296- 6101 10 Dec, 2017 Neuroforaminal stenosis of spine M99.89 [place] [address] [place] [id number] [place] [address] 25065- 4893 Dec, Mixed hyperlipidemia E78.2 [place] [address] 02672- 7956 05 Dec, 2017 Abnormal glucose R73.09 ; Abnormal renal ultrasound R93.429 ; Dysuria R30.0 ; Cystitis without hematuria N30.90 ; Hypokalemia E87.6 ; Mixed hyperlipidemia E78.2 and Hematuria, unspecified type R31.9 [place] [address] [place] [id number] [place] [address] 76893- 4928 Nov, Hypokalemia E87.6 ; Mixed hyperlipidemia E78.2 and Hematuria , unspecified type R31.9 [place] [address] [place] [id number] [place] [address] 75320- 9464 Nov, [place] [address] 25992- 2117 Nov, Hypokalemia E87.6 [place] [address] [place] [id number] [place] [address] 13317- 0204 Nov, [place] [address] [place] [address]- 0243 17 Nov, 2017 Abnormal renal ultrasound R93.429 [facility] [address] [place] [id number] [place] [address] 31513- 0787 Nov, Abnormal renal ultrasound R93.429 [facility] [address] [place] [id number] [place] [address] 96100- 3218 Nov, Hematuria, unspecified type R31.9 and Neuroforaminal stenosis of spine M99.89 [facility] [address] [place] [id number] [place] [address] 68839- 4749 Nov, Dysuria R30.0 [place] [address] [place] [id number] [place] [address] 83111- 1228 Oct, Lateral epicondylitis, right elbow M77.11 [place] [address] [place] [id number] [place] [address] 25957- 1039 Oct, Neuroforaminal stenosis of spine M99.89 ; Visit for TB skin test Z11.1 and Essential hypertension I10 [place] [address] [place] [id number] [place] [address] 77614- 1825 Oct, [place] [address] [place] [id number] [place] [address] 97847- 2017 Oct, Neuroforaminal stenosis of spine M99.89 [place] [address] [place] [id number] [place] [address] 60624- 7301 Oct, Visit for TB skin test Z11.1 [place] [address] [place] [id number] [place] [address] 15400- 7829 Oct, Cystitis without hematuria N30.90 [place] [address] [place] [id number] [place] [address] 83553- 7727 Sep, Screening breast examination Z12.39 [place] [address] [place] [id number] [place] [address] 11456- 7717 Sep, Dysuria R30.0 and Cystitis without hematuria N30.90 [place] [address] [place] [id number] [place] [address] 52545- 6040 14 Sep, 2017 Essential hypertension I10 and Neuroforaminal stenosis of spine M99.89 [place] [address] [place] [id number] [place] [address] 99438- 7226 04 Sep, 2017 Abnormal glucose R73.09 [place] [address] [place] [id number] [place] [address] 44430- 1040 August, Lateral epicondylitis, right elbow M77.11 [place] [address] [place] [id number] [place] [address] 58607- 4963 August, Screen for STD (sexually transmitted disease) Z11.3 [place] [address] [place] [id number] [place] [address] 48343- 9044 August, Neuroforaminal stenosis of spine M99.89 ; Mixed hyperlipidemia E78.2 ; Elevated fasting glucose R73.01 ; Screening mammogram, encounter for Z12.31 and Encounter for well woman exam without gynecological exam Z00.00 [place] [address] [place] [id number] [place] [address] 83350- 4503 August, Neuroforaminal stenosis of spine M99.89 [place] [address] [place] [id number] [place] [address] 54789- 5801 August, Essential hypertension I10 ; Hypokalemia E87.6 and Mixed hyperlipidemia E78.2 [place] [address] [place] [id number] [place] [address] 62135- 4069 Jul, [place] [address] [place] [id number] [place] [address] 96198- 1416 Jul, Neuroforaminal stenosis of spine M99.89 [place] [address] [place] [id number] [place] [address] 19870- 2711 Jul, Lateral epicondylitis, right elbow M77.11 [place] [address] [place] [id number] [place] [address] 03798- 3032 Jul, [place] [id number] [place] [address] 94475- 8676 Jun, High ankle sprain of right lower extremity, initial encounter S93.431A [place] [address] [place] [id number] [place] [address] 48115- 9988 Jun, Essential hypertension I10 [place] [address] [place] [id number] [place] [address] 25126- 6188 Jun, [place] [address] [place] [id number] [place] [address] 37400- 8424 Jun, [place] [address] 58812- 3658 Jun, Neuroforaminal stenosis of spine M99.89 [place] [address] 39429- 6942 Jun, Pain of right upper extremity M79.601 and Essential hypertension I10 [place] [address] [place] [id number] [place] [address] 60821- 1247 Jun, [place] [address] 51530- 8986 Jun, Dysuria R30.0 ; Acute cystitis with hematuria N30.01 and Screen for STD (sexually transmitted disease) Z11.3 [place] [address] [place] [id number] [place] [address] 50074- 8271 May, Chronic pain due to trauma G89.21 [place] [address] [place] [id number] [place] [address] 75159- 9586 May, Essential hypertension I10 [place] [address] [place] [id number] [place] [address] 50671- 9439 May, Neuroforaminal stenosis of spine M99.89 [place] [address] [place] [id number] [place] [address] 32423- 3500 Apr, Allergic reaction, initial encounter T78.40XA [place] [address] [place] [id number] [place] [address] 62579- 3032 Apr, Low back pain, unspecified back pain laterality, unspecified chronicity, with sciatica presence unspecified M54.5 ; Acute cystitis with hematuria N30.01 ; Neuroforaminal stenosis of spine M99.89 ; Bilateral acute serous otitis media, recurrence not specified H65.03 ; Mixed hyperlipidemia E78.2 ; Essential hypertension I10 ; Immunization counseling Z71.89 and Encounter for immunization Z23 [place] [address] [place] [id number] [place] [address] 57204- 0607 08 Apr, 2017 Neck pain M54.2 [place] [address] 98078- 0932 Mar, Neuroforaminal stenosis of spine M99.89 [place] [address] [place] [id number] [place] [address] 01344- 0378 Mar, Pharyngitis due to other organism J02.8 [place] [address] [place] [id number] [place] [address] 08678- 4243 Feb, Neuroforaminal stenosis of spine M99.89 [place] [address] [place] [id number] [place] [address] 11040- 0150 Feb, UTI (urinary tract infection) N39.0 [place] [address] [place] [id number] [place] [address] 20761- 1949 Feb, Recent urinary tract infection Z87.440 ; Neuroforaminal stenosis of spine M99.89 ; Neck pain M54.2 ; Chronic pain due to trauma G89.21 and Recurrent UTI N39.0 [place] [address] [place] [id number] [place] [address] 76138- 9376 Feb, [place] [address] [place] [id number] [place] [address] 87837- 4386 Jan, Neuroforaminal stenosis of spine M99.89 [place] [address] [place] [id number] [place] [address] 75323- 2288 Dec, Neuroforaminal stenosis of spine M99.89 [facility] [address] [place] [id number] [place] [address] 19274- 1499 18 Dec, 2016 Acute seasonal allergic rhinitis due to pollen J30.1 [facility] [address] [place] [id number] [place] [address] 29105- 6728 08 Dec, 2016 [place] [address] 03378- 9482 08 Dec, 2016 Acute seasonal allergic rhinitis, unspecified trigger J30.2 ; Allergic conjunctivitis of both eyes H10.13 and Dysfunction of both eustachian tubes H69.83 [place] [address] 15186- 9447 Dec, [place] [address] 64759- 9238 Dec, Nevus D22.9 [place] [address] 49799- 4069 Nov, Chronic pain due to trauma G89.21 and Neuroforaminal stenosis of spine M99.89 [place] [address] [place] [id number] [place] [address] 72777- 0848 Nov, Neuroforaminal stenosis of spine M99.89 ; Essential hypertension I10 ; Mixed hyperlipidemia E78.2 ; Hypokalemia E87.6 ; Neck pain M54.2 and Nevus D22.9 [place] [address] [place] [id number] [place] [address] 32542- 6398 Oct, Neuroforaminal stenosis of spine M99.89 [place] [address] 04180- 6473 Sep, Neuroforaminal stenosis of spine M99.89 [place] [address] 82479- 2492 Sep, [place] [address] 30719- 5866 August, [facility] [address] [address]- 4343 August, Neck pain M54.2 and Neuroforaminal stenosis of spine M99.89 [facility] [address] [place] [id number] [address]- 1098 August, Routine gynecological examination Z01.419 and Screening breast examination Z12.39 [facility] [address] [place] [id number] [place] [address] 42269- 5726 Jul, [facility] [address] [place] [id number] [place] [address] 57778- 5718 Jul, [facility] [address] [place] [id number] [place] [address] 98020- 1555 Jul, Neuroforaminal stenosis of spine M99.89 [facility] [address] [place] [id number] [place] [address] 69539- 5162 Jul, [facility] [address] [place] [id number] [place] [address] 40654- 2069 Jul, 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 [facility] [address] [place] [id number] [place] [address] 84481- 7446 Jul, [facility] [address] [place] [id number] [address]- 3186 Jul, [facility] [address] [place] [id number] [place] [address] 33118- 6457 Jun, Neuroforaminal stenosis of spine M99.89 [facility] [address] [place] [id number] [place] [address] 82034- 9272 Jun, Uterine leiomyoma, unspecified location D25.9 and Allergic reaction caused by a drug, initial encounter T78.40XA [facility] [address] [place] [id number] [address]- 9581 Jun, [facility] [address] [place] [address] [place] [address]- 2077 May, UTI symptoms R39.9 and Pain of right sacroiliac joint M53.3 [place] [address] 82419- 6448 May, Neuroforaminal stenosis of spine M99.89 [place] [address] 80872- 6907 May, [place] [address] 55120- 3298 May, Acute mucoid otitis media of left ear H65.112 and Acute non- recurrent maxillary sinusitis J01.00 [place] [address] 89563- 8308 May, Acute bacterial conjunctivitis of both eyes H10.33 ; Left arm pain M79.602 and Hypokalemia E87.6 [place] [address] 03943- 8638 Apr, [place] [address] 53500- 5164 Apr, Neuroforaminal stenosis of spine M99.89 ; Neck pain M54.2 ; Chronic pain due to trauma G89.21 ; Mixed hyperlipidemia E78.2 ; Essential hypertension I10 and Hypokalemia E87.6 [place] [address] [place] [id number] [place] [address] 02087- 7343 Mar, Oral candidiasis B37.0 ; Neuroforaminal stenosis of spine M99.89 ; Neck pain M54.2 and Chronic pain due to trauma G89.21 [place] [address] 17585- 9572 Feb, [place] [address] 90843- 8762 Feb, [place] [address] 76860- 1664 Feb, UTI (urinary tract infection) N39.0 [facility] [address] [place] [id number] [place] [address] 06304- 4829 Feb, Dysuria R30.0 [facility] [address] [place] [id number] [place] [address] 14316- 5878 08 Feb, 2016 Dysuria R30.0 [facility] [address] [place] [id number] [place] [address] 35318- 2161 Feb, Neuroforaminal stenosis of spine M99.89 ; Neck pain M54.2 ; Essential hypertension I10 ; Chronic pain due to trauma G89.21 ; Dysuria R30.0 ; Abnormal MRI, shoulder R93.8 and Acute cystitis without hematuria N30.00 [facility] [address] [place] [id number] [place] [address] 41170- 1156 Jan, [facility] [address] [place] [id number] [place] [address] 90977- 1331 Jan, [facility] [address] [place] [id number] [place] [address] 84225- 4982 Jan, [facility] [address] [place] [id number] [place] [address] 67400- 3491 Jan, Abnormal MRI R93.8 [facility] [address] [place] [id number] [place] [address] 46371- 8513 Dec, [facility] [address] [place] [place] [id number] [place] [address] 03968 -1640 15 Dec, 2015 Acute pain of left shoulder M25.512 [facility] [address] [place] [id number] [place] [address] 01242- 6835 Dec, [facility] [address] [place] [place] [id number] [place] [address] 83330- 4384 Dec, [facility] [address] [place] [place] [id number] [place] [address] 03548- 2713 Dec, Acute pain of left shoulder M25.512 [facility] [address] [facility] [id number] [address]- [address] Nov, [facility] [address] [facility] [id number] [address]- 6299 Nov, Neuroforaminal stenosis of spine M99.89 ; Neck pain M54.2 ; Abnormal mammogram R92.8 ; Essential hypertension I10 and Chronic pain due to trauma G89.21 [facility] [address] [facility] [id number] [place] [address] 99356- 6271 Nov, [facility] [address] [facility] [id number] [address]- 9749 Oct, Acute stress disorder F43.0 [facility] [address] [place] [id number] [address]- 1427 Oct, [facility] [address] [place] [id number] [place] [address] 13223- 1550 Oct, [facility] [address] [place] [id number] [address]- 4339 Oct, [facility] [address] [place] [id number] [address]- 6017 Sep, [facility] [address] [place] [id number] [address]- 4744 August, [facility] [address] [address]- 1278 Jul, Neuroforaminal stenosis of spine M99.89 ; Neck pain M54.2 ; Abnormal mammogram R92.8 and Essential hypertension I10 [facility] [address] [facility] [id number] [address]- 7927 Jul, [facility] [address] [facility] [id number] [address]- 4663 Jul, [facility] [address] [place] [id number] [address]- 9343 Jul, Abnormal mammogram R92.8 [place] [address] [address]- 3191 Jul, [place] [address] [place] [id number] [place] [address] 34469- 9581 Jul, UTI (urinary tract infection) N39.0 [place] [id number] [place] [address] 92806- 7002 Jul, Dysuria R30.0 [place] [id number] [place] [address] 28236- 7230 Jun, [place] [address] [place] [id number] [place] [address] 87745- 6794 Jun, [place] [address] [place] [id number] [place] [address] 48135- 2457 Jun, Hypokalemia E87.6 and Hematuria R31.9 [place] [address] [id number] [place] [address] 78322- 3317 Jun, Hypokalemia E87.6 [place] [id number] [place] [address] 55791- 0325 Jun, [place] [id number] [place] [address] 68043- 7781 Jun, Hypokalemia E87.6 [place] [id number] [place] [address] 91475- 2944 Jun, Hypokalemia E87.6 [place] [id number] [place] [address] 04917- 7049 15 Jun, 2015 Neuroforaminal stenosis of spine M99.89 ; Hypokalemia E87.6 ; Neck pain M54.2 ; Essential hypertension I10 ; Mixed hyperlipidemia E78.2 and Screening breast examination Z12.39 [place] [address] [address]- 1710 Jun, Dysuria R30.0 ; UTI (urinary tract infection) N39.0 and Hematuria R31.9 [facility] [id number] [place] [address] 65382- 5731 May, [facility] [address] 13262- 7688 18 May, 2015 High risk sexual behavior Z72.51 ; Hypokalemia E87.6 ; Neuroforaminal stenosis of spine M99.89 ; Neck pain M54.2 ; Essential hypertension I10 ; Mixed hyperlipidemia E78.2 ; STD exposure Z20.2 and Concern about STD in female without diagnosis Z71.1 [place] [address] 26996- 4165 16 May, 2015 Neuroforaminal stenosis of spine M99.89 ; Neck pain M54.2 ; Hypokalemia E87.6 ; Essential hypertension I10 and Mixed hyperlipidemia E78.2 [place] [address] 06729- 7718 11 May, 2015 [facility] [id number] [place] [address] 39916 -2267 08 May, 2015 High risk sexual behavior Z72.51 ; STD exposure Z20.2 and Concern about STD in female without diagnosis Z71.1 [place] [id number] [place] [address] 01581- 0700 May, [facility] [id number] [place] [address] 43618- 7702 Apr, Neuroforaminal stenosis of spine M99.89 ; Mixed hyperlipidemia E78.2 ; Essential hypertension I10 and Hypokalemia E87.6 [place] [address] 16693- 7980 Mar, [place] [address] 11571- 9987 Mar, Hypokalemia E87.6 [facility] [address] 72315- 0221 Mar, Neuroforaminal stenosis of spine M99.89 ; Mixed hyperlipidemia E78.2 ; Neck pain M54.2 ; Essential hypertension I10 ; Abnormal fasting glucose R73.09 ; Hypokalemia E87.6 and Constipation K59.00 [facility] [id number] [place] [address] 59817- 3708 Feb, Neuroforaminal stenosis of spine M99.89 ; Mixed hyperlipidemia E78.2 ; Neck pain M54.2 ; Essential hypertension I10 ; Abnormal fasting glucose R73.09 ; Hypokalemia E87.6 and Constipation K59.00 [place] [address] 07613- 1511 Feb, Elevated fasting blood sugar R73.01 [place] [id number] [place] [address] 59440- 3552 Feb, Elevated fasting blood sugar R73.01 [place] [id number] [place] [address] 49359- 5663 Feb, Hair loss L65.9 [place] [address] 73950- 1381 Feb, Sinusitis J32.9 ; Essential hypertension I10 and Hair loss L65.9 [place] [address] [place] [id number] [place] [address] [phone]- [phone] Jan, [place] [address] [place] [address] [id number] [place] [address] 19722- 8854 Jan, Essential hypertension I10 ; Neuroforaminal stenosis of spine M99.89 ; Neck pain M54.2 ; Mixed hyperlipidemia E78.2 and Anxiety F41.9 [place] [address] [place] [id number] [place] [address] 09438- 9474 Jan, [place] [address] [place] [id number] [place] [address] 16724- 7630 Jan, Mixed hyperlipidemia E78.2 ; Essential (primary) hypertension I10 ; Strain of muscle, fascia and tendon at neck level, subsequent encounter S16.1XXD and Tension-type headache, unspecified, not intractable G44.209 [facility] [address] 16[address]- 7610 Dec, Lumbar back pain 724.2 and Neuroforaminal stenosis of spine 724.00 [facility] [id number] [place] [address] [phone]- [phone] Nov, [facility] [address] 113[address]- 7173 Nov, Lumbar back pain 724.2 and Neuroforaminal stenosis of spine 724.00 [place] [address] 53647- 5892 Nov, Edema 782.3 ; Lumbar back pain 724.2 ; Essential hypertension, benign 401.1 ; Hyperlipemia 272.4 ; Neuroforaminal stenosis of spine 724.00 and Post-concussion headache 339.20 [place] [address] [place] [address] [id number] [place] [address] 72346- 2987 Nov, [place] [address] 85228- 6725 Nov, [facility] [id number] [place] [address] 66064- 3340 Oct, Essential hypertension, benign 401.1 [facility] [address] [id number] [place] [address] 45165- 0299 Oct, Edema 782.3 ; Lumbar back pain 724.2 ; Essential hypertension, benign 401.1 ; Hyperlipemia 272.4 ; Neuroforaminal stenosis of spine 724.00 and Post-concussion headache 339.20 [facility] [id number] [place] [address] [phone]- [phone] Oct, [facility] [id number] [place] [address] 62659- [phone] Oct, Edema 782.3 [place] [id number] [address] Oct, Lumbar back pain 724.2 [facility] [id number] [place] [address] [phone]- [phone] Oct, Cervicalgia 723.1 ; Lumbar back pain 724.2 and High risk medication use V58.69 [facility] [id number] [place] [address] 97145- 9768 Sep, [facility] [id number] [place] [address] 20667- 3403 Sep, Lumbar strain 847.2 [facility] [id number] [place] [address] 00797- 9439 August, Edema 782.3 and Eustachian tube dysfunction 381.81 [facility] [id number] [place] [address] 36398- 8147 August, [facility] [id number] [place] [address] 66937- 6585 August, Eustachian tube dysfunction 381.81 [facility] [id number] [address] 59[address] Jul, Otalgia 388.70 and Otitis media 382.9 [facility] [id number] [address] 7299 Jul, [facility] [id number] [address] 5803 Jul, [facility] [id number] [address] 4186 Jul, [facility] [id number] [place] [address] [id number] Jul, [facility] [id number] [address] 0672 Jul, [facility] [id number] [place] [address], [place] [address]- 0881 27 Jun, 2014 [facility] [place] [facility] [address] [id number] [place] [address]- 5819 27 Jun, 2014 [facility] [place] [facility] [address] [id number] [place] [address]- 8683 16 Jun, 2014 [facility] [place] [facility] [address] [id number] [place] [address]- 9734 May, 2014 [facility] [place] [facility] [address] [id number] [place] [address]- 9154 May, 2014 [facility] [place] [facility] [address] [id number] [place] [address]- 0959 May, 2014 [facility] [place] [facility] [address] [facility] [id number] [place] [address]- 8898 May, 2014 [facility] [place] [facility] [address] [facility] [id number] [place] [address]- 5534 May, 2014 [facility] [place] [facility] [address] [id number] [place] [address]- 5700 May, 2014 [facility] [place] [facility] [address] [facility] [id number] [place] [address]- 2362 May, 2014 [facility] [place] [facility] [address] [facility] [id number] [place] [address]- 8812 May, [facility] [place] [facility] [address] [facility] [id number] [place] [address]- 7629 May, 2014 [facility] [place] [facility] [address] [id number] [place] [address]- 1294 May, [facility] [place] [facility] [address] [id number] [place] [address]- 8681 Apr, [facility] [place] [facility] [address] [id number] [place] [address]- 0511 Apr, [facility] [place] [facility] [address] [facility] [id number] [place] [address]- 4358 Apr, [facility] [place] [facility] [address] [id number] [place] [address]- 8838 Apr, [facility] [place] [facility] [address] [id number] [place] [address]- 8316 Apr, [facility] [place] [facility] [address] [id number] [place] [address]- 9195 Apr, [facility] [place] [facility] [address] [id number] [place] [address]- 7365 Apr, [facility] [place] [facility] [address] [id number] [place] [address]- 4730 Apr, [facility] [place] [facility] [address] [id number] [place] [address]- 5682 Apr, [facility] [place] [facility] [address] [id number] [place] [address]- 4187 Apr, [facility] [place] [facility] [address] [id number] [place] [address]- 2254 Apr, [facility] [place] [facility] [address] [id number] [place] [address]- 3612 Apr, [facility] [place] [facility] [address] [id number] [place] [address]- 6427 Apr, [facility] [place] [facility] [address] [id number] [place] [address]- 2404 Apr, [facility] [place] [facility] [address] [id number] [address]- 4280 Apr, [facility] [place] [facility] [address] [id number] [place] [address]- 8992 Mar, [facility] [place] [facility] [address] [id number] [place] [address]- 0094 Mar, [facility] [place] [facility] [address] [id number] [place] [address]- 7254 Mar, [facility] [place] [facility] [address] [id number] [place] 9771 Mar, [facility] [place] [facility] [address] [id number] [place] 7685 Feb, [facility] [place] [facility] [address] [id number] [place] 7716 Feb, [facility] [place] [facility] [address] [id number] [place] [address]- 8548 Feb, [facility] [place] [facility] [address] [id number] [place] [address]- 5960 Feb, [facility] [place] [facility] [address] [id number] [place] 8734 Jan, [facility] [place] [facility] [address] [id number] [place] [address]- 5965 Jan, [facility] [place] [facility] [address] [facility] [id number] [place] [address]- 1154 Jan, [facility] [place] [facility] [address] [id number] [place] [address]- 8555 Jan, [facility] [place] [facility] [address] [facility] [id number] [place] [address]- 9532 Jan, [facility] [place] [facility] [address] [facility] [id number] [place] [address]- 3196 Jan, [facility] [place] [facility] [address] [id number] [place] [address]- 6542 Jan, [facility] [place] [facility] [address] [facility] [id number] [place] [address]- 2001 Jan, [facility] [place] [facility] [address] [id number] [place] [address]- 8102 Dec, [facility] [place] [facility] [address] [facility] [id number] [place] [address]- 6312 Dec, [facility] [place] [facility] [address] [id number] [place] [address]- 7656 Dec, [facility] [place] [facility] [address] [id number] [place] [address]- 2270 Dec, [facility] [place] [facility] [address] [id number] [place] [address]- 6090 Oct, [facility] [place] [facility] [address] [id number] [place] [address]- 5141 Oct, [facility] [place] [facility] [address] [id number] [place] [address]- 0061 Oct, [facility] [place] [facility] [address] [id number] [place] [address]- 0859 Oct, [facility] [place] [facility] [address] [id number] [place] [address]- 6570 Oct, [facility] [place] [facility] [address] [id number] [place] [address]- 6955 Oct, [facility] [place] [facility] [address] [id number] [place] [address]- 0522 Oct, [facility] [place] [facility] [address] [id number] [place] [address]- 1759 Oct, [facility] [place] [facility] [address] [id number] [place] [address]- 0873 Sep, [facility] [place] [facility] [address] [id number] [place] [address]- 6136 Sep, [facility] [place] [facility] [address] [id number] [place] [address]- 6121 Sep, [facility] [place] [facility] [address] [id number] [place] [address]- 1960 Sep, [facility] [place] [facility] [address] [id number] [place] [address]- 4658 Sep, [facility] [place] [facility] [address] [id number] [place] [address]- 6372 Sep, [facility] [place] [facility] [address] [id number] [place] [address]- 7779 Sep, [facility] [place] [facility] [address] [id number] [place] [address]- 6343 Sep, [facility] [place] [facility] [address] [id number] [place] [address]- 1100 Sep, [facility] [place] [facility] [address] [id number] [place] [address]- 8017 Sep, [facility] [place] [facility] [address] [id number] [place] [address]- 8980 August, [facility] [place] [facility] [address] [id number] [place] [address]- 0778 August, [facility] [place] [facility] [address] [id number] [place] [address]- 9551 August, [facility] [place] [facility] [address] [id number] [place] [address]- 5728 August, [facility] [place] [facility] [address] [id number] [place] [address]- 5587 August, [facility] [place] [facility] [address] [id number] [place] [address]- 0945 August, [facility] [place] [facility] [address] [id number] [place] [address]- 5765 August, [facility] [place] [facility] [address] [id number] [place] [address]- 1406 August, [facility] [place] [facility] [address] [id number] [place] [address]- 0110 August, [facility] [place] [facility] [address] [id number] [place] [address]- 2906 August, [facility] [place] [facility] [address] [id number] [place] [address]- 9293 August, [facility] [place] [facility] [address] [id number] [place] [address]- 5426 August, [facility] [place] [facility] [address] [id number] [place] [address]- 9112 11 Jul, 2013 [facility] [address] [id number] [place] [address]- 1083 Jul, [facility] [place] [facility] [address] [id number] [place] [address]- 0718 Jul, [facility] [address] [id number] [place] [address]- 5123 Jul, [facility] [place] [facility] [address] [id number] [place] [address]- 9763 Jul, [facility] [place] [facility] [address] [id number] [place] [address]- 3637 Jul, [facility] [place] [facility] [address] [id number] [place] [address]- 9553 Jun, [facility] [place] [facility] [address] [id number] [place] [address]- 9192 Jun, [facility] [place] [facility] [address] [id number] [place] [address]- 4479 May, [facility] [place] [facility] [address] [id number] [place] [address]- 7102 May, [facility] [place] [facility] [address] [id number] [place] [address]- 8124 Apr, [facility] [place] [facility] [address] [id number] [place] [address]- 0410 Apr, [facility] [place] [facility] [address] [id number] [place] [address]- 9409 Apr, [facility] [place] [facility] [address] [id number] [place] [address]- 2974 Apr, [facility] [place] [facility] [address] [id number] [place] [address]- 7809 Apr, [facility] [place] [facility] [address] [id number] [place] [address]- 6752 Apr, [facility] [address] [id number] [place] [address]- 5079 Apr, [facility] [place] [facility] [address] [id number] [place] [address]- 7856 Apr, [facility] [place] [facility] [address] [id number] [place] [address]- 2894 Apr, [facility] [place] [facility] [address] [id number] [place] [address]- 4873 Apr, [facility] [place] [facility] [address] [id number] [place] [address]- 8311 Apr, [facility] [place] [facility] [address] [id number] [place] [address]- 1304 Apr, [facility] [place] [facility] [address] [id number] [place] [address]- 3895 Apr, [facility] [place] [facility] [address] [id number] [place] [address]- 6971 Mar, [facility] [place] [facility] [address] [id number] [place] [address]- 1225 Mar, [facility] [place] [facility] [address] [id number] [place] [address]- 3561 Mar, [facility] [place] [facility] [address] [id number] [address]- 7455 Mar, [facility] [place] [facility] [address] [id number] [address]- 1169 Feb, [facility] [place] [facility] [address] [id number] [place] [address]- 8299 Feb, [facility] [place] [facility] [address] [id number] [place] [address]- 7586 Feb, [facility] [place] [facility] [address] [id number] [place] [address]- 5024 Feb, [facility] [place] [facility] [address] [id number] [place] [address]- 7856 14 Jan, 2013 [facility] [place] [facility] [address] [id number] [place] [address]- 4819 14 Jan, 2013 [facility] [place] [facility] [address] [id number] [place] [address]- 0754 11 Jan, 2013 [facility] [place] [facility] [address] [id number] [place] [address]- 4449 11 Jan, 2013 [facility] [place] [facility] [address] [id number] [place] [address]- 6020 10 Jan, 2013 [facility] [place] [facility] [address] [id number] [place] [address]- 9414 10 Jan, 2013 [facility] [place] [facility] [address] [id number] [place] [address]- 5228 09 Jan, 2013 [facility] [place] [facility] [address] [id number] [place] [address]- 7547 09 Jan, 2013 [facility] [place] [facility] [address] [id number] [place] [address]- 5176 Jan, [facility] [place] [facility] [address] [id number] [place] [address]- 6331 26 Dec, 2012 [facility] [place] [facility] [address] [id number] [place] [address]- 5733 16 Dec, 2012 [facility] [place] [facility] [address] [id number] [place] [address]- 7842 16 Dec, 2012 [facility] [place] [facility] [address] [id number] [place] [address]- 6010 13 Dec, 2012 [facility] [place] [facility] [address] [id number] [place] [address]- 5952 17 Nov, 2012 [facility] [place] [facility] [address] [id number] [place] [address]- 7975 17 Nov, 2012 [facility] [place] [facility] [address] [id number] [place] [address]- 6168 14 Nov, 2012 [facility] [place] [facility] [address] [id number] [place] [address]- 7005 Nov, [facility] [address] [id number] [place] [address]- 1060 Oct, [facility] [address] [id number] [place] [address]- 6499 Sep, [facility] [address] [id number] [place] [address]- 5515 August, [facility] [address] [id number] [place] [address]- 2174 August, [facility] [address] [id number] [place] [address]- 4789 August, [facility] [address] [id number] [place] [address]- 6661 August, [facility] [address] [id number] [place] [address]- 6731 August, [facility] [address] [id number] [place] [address]- 5406 August, [facility] [address] [id number] [place] [address]- 7438 August, [facility] [address] [id number] [place] [address]- 5554 August, [facility] [address] [id number] [place] [address]- 9964 August, [facility] [address] [id number] [place] [address]- 0026 August, [facility] [address] [id number] [place] [address]- 5566 August, [facility] [address] [id number] [place] [address]- 9934 August, [facility] [address] [id number] [place] [address]- 3339 Jul, [facility] [address] [id number] [place] [address]- 2389 Jul, [facility] [place] [facility] [address] [id number] [place] [address]- 6569 Jul, [facility] [address] [id number] [place] [address]- 2955 Jul, [facility] [place] [facility] [address] [id number] [place] [address]- 7318 Jul, [facility] [address] [id number] [place] [address]- 1793 Jul, [facility] [address] [id number] [place] [address]- 8749 Jul, [facility] [address] [id number] [place] [address]- 4527 Jul, [facility] [place] [facility] [address] [id number] [place] [address]- 7372 Jul, [facility] [address] [id number] [place] [address]- 8117 Jul, [facility] [place] [facility] [address] [id number] [place] [address]- 5095 Jul, [facility] [place] [facility] [address] [id number] [place] [address]- 2038 Jun, [facility] [place] [facility] [address] [id number], [place] [address]- 7015 Jun, [facility] [place] [facility] [address] [id number] [place] [address]- 6846 Jun, [facility] [place] [facility] [address] [id number] [place] [address]- 0307 Jun, [facility] [place] [facility] [address] [id number] [place] [address]- 5246 May, [facility] [place] [facility] [address] [id number] [place] [address]- 0954 14 May, 2012 [facility] [address] [id number] [place] [address]- 4016 05 May, 2012 [facility] [place] [facility] [address] [id number] [place] [address]- 8066 04 May, 2012 [facility] [address] [id number] [place] [address]- 1426 04 May, 2012 [facility] [address] [id number] [place] [address]- 2544 May, [facility] [address] [id number] [place] [address]- 3116 Apr, [facility] [address] [id number] [place] [address]- 2795 Apr, [facility] [address] [id number] [place] [address]- 0775 Apr, [facility] [address] [id number] [place] [address] Apr, [facility] [address] [id number] [place] [address] 15 Mar, 2012 [facility] [address] [id number] [place] [address] 14 Mar, 2012 [facility] [address] [id number] [place] [address] 14 Mar, 2012 [facility] [address] [id number] [place] [address] 14 Mar, 2012 [facility] [place] [facility] [address] [id number] [place] [address] 14 Mar, 2012 [facility] [place] [facility] [address] [id number] [place] [address] 06 Mar, 2012 [facility] [place] [facility] [address] [id number] [place] [address] Mar, [facility] [place] [facility] [address] [id number] [place] [address] Feb, [facility] [place] [facility] [address] [id number] [place] [address] Feb, [facility] [place] [facility] [address] [id number] [place] [address] Feb, [facility] [place] [facility] [address] [id number] [place] [address] Feb, [facility] [place] [facility] [address] [id number] [place] [address] Jan, [facility] [place] [facility] [address] [id number] [place] [address] Jan, [facility] [place] [facility] [address] [id number] [place] [address] Jan, [facility] [place] [facility] [address] [id number] [place] [address] Jan, [facility] [place] [facility] [address] [id number] [place] [address] Jan, [facility] [place] [facility] [address] [facility] [id number], [place] [address] Jan, [facility] [place] [facility] [address] [id number], [place] [address] Dec, [facility] [place] [facility] [address] [id number], [place] [address] Dec, [facility] [place] [facility] [address] [id number] [place] [address] Nov, [facility] [place] [facility] [address] [id number], [place] [address] Sep, [facility] [place] [facility] [address] [id number][place] [address] August, [facility] [place] [facility] [address] [id number] [place] [address] August, [facility] [place] [facility] [address] [id number] [place] [address] August, [facility] [place] [facility] [address] [id number] [place] [address] August, [facility] [place] [facility] [address] [id number] [place] [address] August, [facility] [place] [facility] [address] [id number] [place] [address] Jun, [facility] [place] [facility] [address] [id number] [place] [address] Jun, [facility] [place] [facility] [address] [id number] [place] [address] Apr, [facility] [place] [facility] [address] [id number] [place] [address] Apr, [facility] [place] [facility] [address] [id number] [place] [address] Mar, [facility] [place] [facility] [address] [id number] [place] [address] 22 Feb, 2011 [facility] [place] [facility] [address] [facility] [id number] [place] [address] 14 Feb, 2011 [facility] [place] [facility] [address] [id number] [place] [address] 14 Feb, 2011 [facility] [place] [facility] [address] [id number] [place] [address] 17 Jan, 2011 [facility] [place] [facility] [address] [id number] [place] [address] 15 Jan, 2011 [facility] [place] [facility] [address] [id number] [place] [address] 15 Jan, 2011 [facility] [place] [facility] [address] [id number] [place] [address] 14 Jan, 2011 [facility] [address] [id number] [address] 15 May, 2010 [facility] [id number] [address] Mar, [facility] [id number] [address] Oct, [facility] [id number] [place] [address] Sep, [facility] [id number] [address] Mar, [facility] [id number] [place] [address] Jan, [facility] [id number] [address] Jan, [facility] [id number] [address] May, IMMUNIZATIONS No Known Immunizations SOCIAL HISTORY Never Assessed REASON FOR VISIT PLAN OF CARE VITAL SIGNS MEDICATIONS Medication Instructions Dosage Frequency Start Date End Date Duration Status Klor-Con 10 10 MEQ Orally twice a day 1 tablet 12h Active RESULTS No Results PROCEDURES No Known procedures INSTRUCTIONS MEDICATIONS ADMINISTERED No Known Medications MEDICAL (GENERAL) HISTORY Type Description Date Medical History hypertension Medical History Colposcopy with loop electrode excision of the cervix was performed 06/2012, mild squamous atypia (no definite dyplasia). Performed at [facility] Dr. Joy. Medical History Acute [...]
--- OUTSIDE RECORDS SUMMARY | 2018-06-10 05:17 | XMS REPORT ---
Author Author BETI STAUFFER [facility] Address [address] [place] [address] Care Team Providers Care Cigar Head Puncher Name Role Phone JULIENNE STAUFFERTA Unavailable PROBLEMS Type Condition ICD9-CM Code QAQ94-GQ Code Onset Dates Condition Status SNOMED Code Problem Hematuria, unspecified type R31.9 Active 50159030 Problem Anxiety F41.9 Active 22745539 Problem Abnormal renal ultrasound R93.429 Active [id number] Problem Abnormal glucose R73.09 Active 893608581 Problem Chronic pain due to trauma G89.21 Active 787945617 Problem Hypokalemia E87.6 Active 31166098 Problem Neck pain M54.2 Active 18794918 Problem Neuroforaminal stenosis of spine M99.89 Active 821526786914 Problem Mixed hyperlipidemia E78.2 Active 60732809 Problem Essential hypertension I10 Active 90402757 ALLERGIES No Information ENCOUNTERS Encounter Location Date Diagnosis [place] [id number] [address]- [address] Feb, [place] [address] 8[address]- 5831 Jan, Hypokalemia E87.6 [facility] [address] [place] [id number] [place] [address] 95033- 9931 Jan, Flank pain R10.9 and Acute right-sided low back pain without sciatica M54.5 [facility] [address] 18140- 3220 Jan, Hypokalemia E87.6 [facility] [address] [place] [id number] [place] [address] 72351- 1466 Jan, [facility] [address] 79538- 5609 Jan, URI, acute J06.9 [place] [address] [place] [id number] [place] [address] 24489- 2540 05 Jan, 2018 Neuroforaminal stenosis of spine M99.89 [place] [address] [place] [id number] [place] [address] 32826- 9577 13 Dec, 2017 Lateral epicondylitis, right elbow M77.11 [place] [address] 45235- 9500 11 Dec, 2017 Allergic rhinitis due to pollen, unspecified seasonality J30.1 and Allergic conjunctivitis of both eyes H10.13 [place] [address] 97758- 9309 10 Dec, 2017 Neuroforaminal stenosis of spine M99.89 [place] [address] [place] [id number] [place] [address] 81480- 4576 Dec, Mixed hyperlipidemia E78.2 [place] [address] 00973- 8388 05 Dec, 2017 Abnormal glucose R73.09 ; Abnormal renal ultrasound R93.429 ; Dysuria R30.0 ; Cystitis without hematuria N30.90 ; Hypokalemia E87.6 ; Mixed hyperlipidemia E78.2 and Hematuria, unspecified type R31.9 [place] [address] [place] [id number] [place] [address] 48945- 1652 Nov, Hypokalemia E87.6 ; Mixed hyperlipidemia E78.2 and Hematuria , unspecified type R31.9 [place] [address] [place] [id number] [place] [address] 63578- 9276 Nov, [place] [address] 33685- 3049 Nov, Hypokalemia E87.6 [place] [address] [place] [id number] [place] [address] 78723- 2465 Nov, [place] [address] [place] [address]- 3083 17 Nov, 2017 Abnormal renal ultrasound R93.429 [facility] [address] [place] [id number] [place] [address] 96991- 2606 Nov, Abnormal renal ultrasound R93.429 [facility] [address] [place] [id number] [place] [address] 86369- 1583 Nov, Hematuria, unspecified type R31.9 and Neuroforaminal stenosis of spine M99.89 [facility] [address] [place] [id number] [place] [address] 01072- 4731 Nov, Dysuria R30.0 [place] [address] [place] [id number] [place] [address] 33960- 2819 Oct, Lateral epicondylitis, right elbow M77.11 [place] [address] [place] [id number] [place] [address] 42879- 3074 Oct, Neuroforaminal stenosis of spine M99.89 ; Visit for TB skin test Z11.1 and Essential hypertension I10 [place] [address] [place] [id number] [place] [address] 89391- 8752 Oct, [place] [address] [place] [id number] [place] [address] 76461- 9511 Oct, Neuroforaminal stenosis of spine M99.89 [place] [address] [place] [id number] [place] [address] 34014- 8202 Oct, Visit for TB skin test Z11.1 [place] [address] [place] [id number] [place] [address] 99361- 3167 Oct, Cystitis without hematuria N30.90 [place] [address] [place] [id number] [place] [address] 60304- 2474 Sep, Screening breast examination Z12.39 [place] [address] [place] [id number] [place] [address] 05701- 8339 Sep, Dysuria R30.0 and Cystitis without hematuria N30.90 [place] [address] [place] [id number] [place] [address] 60082- 3977 14 Sep, 2017 Essential hypertension I10 and Neuroforaminal stenosis of spine M99.89 [place] [address] [place] [id number] [place] [address] 44076- 5373 04 Sep, 2017 Abnormal glucose R73.09 [place] [address] [place] [id number] [place] [address] 63341- 2507 August, Lateral epicondylitis, right elbow M77.11 [place] [address] [place] [id number] [place] [address] 00028- 6865 August, Screen for STD (sexually transmitted disease) Z11.3 [place] [address] [place] [id number] [place] [address] 65064- 2656 August, Neuroforaminal stenosis of spine M99.89 ; Mixed hyperlipidemia E78.2 ; Elevated fasting glucose R73.01 ; Screening mammogram, encounter for Z12.31 and Encounter for well woman exam without gynecological exam Z00.00 [place] [address] [place] [id number] [place] [address] 43976- 8885 August, Neuroforaminal stenosis of spine M99.89 [place] [address] [place] [id number] [place] [address] 48564- 5005 August, Essential hypertension I10 ; Hypokalemia E87.6 and Mixed hyperlipidemia E78.2 [place] [address] [place] [id number] [place] [address] 72823- 0008 Jul, [place] [address] [place] [id number] [place] [address] 65756- 1771 Jul, Neuroforaminal stenosis of spine M99.89 [place] [address] [place] [id number] [place] [address] 58516- 5057 Jul, Lateral epicondylitis, right elbow M77.11 [place] [address] [place] [id number] [place] [address] 76752- 0682 Jul, [place] [id number] [place] [address] 67084- 2028 Jun, High ankle sprain of right lower extremity, initial encounter S93.431A [place] [address] [place] [id number] [place] [address] 31697- 6569 Jun, Essential hypertension I10 [place] [address] [place] [id number] [place] [address] 41557- 3214 Jun, [place] [address] [place] [id number] [place] [address] 72999- 7045 Jun, [place] [address] 76779- 5069 Jun, Neuroforaminal stenosis of spine M99.89 [place] [address] 01157- 1389 Jun, Pain of right upper extremity M79.601 and Essential hypertension I10 [place] [address] [place] [id number] [place] [address] 41787- 9355 Jun, [place] [address] 24064- 2988 Jun, Dysuria R30.0 ; Acute cystitis with hematuria N30.01 and Screen for STD (sexually transmitted disease) Z11.3 [place] [address] [place] [id number] [place] [address] 17907- 2282 May, Chronic pain due to trauma G89.21 [place] [address] [place] [id number] [place] [address] 74233- 6798 May, Essential hypertension I10 [place] [address] [place] [id number] [place] [address] 66826- 6987 May, Neuroforaminal stenosis of spine M99.89 [place] [address] [place] [id number] [place] [address] 71306- 7400 Apr, Allergic reaction, initial encounter T78.40XA [place] [address] [place] [id number] [place] [address] 09884- 4771 Apr, Low back pain, unspecified back pain laterality, unspecified chronicity, with sciatica presence unspecified M54.5 ; Acute cystitis with hematuria N30.01 ; Neuroforaminal stenosis of spine M99.89 ; Bilateral acute serous otitis media, recurrence not specified H65.03 ; Mixed hyperlipidemia E78.2 ; Essential hypertension I10 ; Immunization counseling Z71.89 and Encounter for immunization Z23 [place] [address] [place] [id number] [place] [address] 32567- 4412 08 Apr, 2017 Neck pain M54.2 [place] [address] 34708- 5781 Mar, Neuroforaminal stenosis of spine M99.89 [place] [address] [place] [id number] [place] [address] 69023- 2086 Mar, Pharyngitis due to other organism J02.8 [place] [address] [place] [id number] [place] [address] 54514- 6647 Feb, Neuroforaminal stenosis of spine M99.89 [place] [address] [place] [id number] [place] [address] 78669- 1198 Feb, UTI (urinary tract infection) N39.0 [place] [address] [place] [id number] [place] [address] 08390- 3910 Feb, Recent urinary tract infection Z87.440 ; Neuroforaminal stenosis of spine M99.89 ; Neck pain M54.2 ; Chronic pain due to trauma G89.21 and Recurrent UTI N39.0 [place] [address] [place] [id number] [place] [address] 90865- 7267 Feb, [place] [address] [place] [id number] [place] [address] 85292- 9590 Jan, Neuroforaminal stenosis of spine M99.89 [place] [address] [place] [id number] [place] [address] 56185- 4615 Dec, Neuroforaminal stenosis of spine M99.89 [facility] [address] [place] [id number] [place] [address] 96679- 8393 18 Dec, 2016 Acute seasonal allergic rhinitis due to pollen J30.1 [facility] [address] [place] [id number] [place] [address] 17376- 8276 08 Dec, 2016 [place] [address] 71814- 7046 08 Dec, 2016 Acute seasonal allergic rhinitis, unspecified trigger J30.2 ; Allergic conjunctivitis of both eyes H10.13 and Dysfunction of both eustachian tubes H69.83 [place] [address] 30369- 0207 Dec, [place] [address] 43521- 2670 Dec, Nevus D22.9 [place] [address] 28721- 8850 Nov, Chronic pain due to trauma G89.21 and Neuroforaminal stenosis of spine M99.89 [place] [address] [place] [id number] [place] [address] 57976- 6154 Nov, Neuroforaminal stenosis of spine M99.89 ; Essential hypertension I10 ; Mixed hyperlipidemia E78.2 ; Hypokalemia E87.6 ; Neck pain M54.2 and Nevus D22.9 [place] [address] [place] [id number] [place] [address] 51378- 5356 Oct, Neuroforaminal stenosis of spine M99.89 [place] [address] 98715- 1346 Sep, Neuroforaminal stenosis of spine M99.89 [place] [address] 08140- 4341 Sep, [place] [address] 55270- 9947 August, [facility] [address] [address]- 1663 August, Neck pain M54.2 and Neuroforaminal stenosis of spine M99.89 [facility] [address] [place] [id number] [address]- 4130 August, Routine gynecological examination Z01.419 and Screening breast examination Z12.39 [facility] [address] [place] [id number] [place] [address] 85806- 7990 Jul, [facility] [address] [place] [id number] [place] [address] 54322- 3782 Jul, [facility] [address] [place] [id number] [place] [address] 19348- 9784 Jul, Neuroforaminal stenosis of spine M99.89 [facility] [address] [place] [id number] [place] [address] 03878- 7076 Jul, [facility] [address] [place] [id number] [place] [address] 09956- 2095 Jul, 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 [facility] [address] [place] [id number] [place] [address] 28008- 2514 Jul, [facility] [address] [place] [id number] [address]- 0747 Jul, [facility] [address] [place] [id number] [place] [address] 67344- 6417 Jun, Neuroforaminal stenosis of spine M99.89 [facility] [address] [place] [id number] [place] [address] 20366- 4948 Jun, Uterine leiomyoma, unspecified location D25.9 and Allergic reaction caused by a drug, initial encounter T78.40XA [facility] [address] [place] [id number] [address]- 7694 Jun, [facility] [address] [place] [id number] [place] [address]- 5735 May, UTI symptoms R39.9 and Pain of right sacroiliac joint M53.3 [place] [address] 77686- 2952 May, Neuroforaminal stenosis of spine M99.89 [place] [address] 94495- 4273 May, [place] [address] 55716- 0647 May, Acute mucoid otitis media of left ear H65.112 and Acute non- recurrent maxillary sinusitis J01.00 [place] [address] 14341- 3316 May, Acute bacterial conjunctivitis of both eyes H10.33 ; Left arm pain M79.602 and Hypokalemia E87.6 [place] [address] 17429- 1744 Apr, [place] [address] 94421- 8154 Apr, Neuroforaminal stenosis of spine M99.89 ; Neck pain M54.2 ; Chronic pain due to trauma G89.21 ; Mixed hyperlipidemia E78.2 ; Essential hypertension I10 and Hypokalemia E87.6 [place] [address] [place] [id number] [place] [address] 80099- 2156 Mar, Oral candidiasis B37.0 ; Neuroforaminal stenosis of spine M99.89 ; Neck pain M54.2 and Chronic pain due to trauma G89.21 [place] [address] 21707- 2829 Feb, [place] [address] 55931- 5292 Feb, [place] [address] 17420- 0924 Feb, UTI (urinary tract infection) N39.0 [facility] [address] [place] [id number] [place] [address] 73947- 0476 Feb, Dysuria R30.0 [facility] [address] [place] [id number] [place] [address] 37603- 8262 08 Feb, 2016 Dysuria R30.0 [facility] [address] [place] [id number] [place] [address] 16597- 3105 Feb, Neuroforaminal stenosis of spine M99.89 ; Neck pain M54.2 ; Essential hypertension I10 ; Chronic pain due to trauma G89.21 ; Dysuria R30.0 ; Abnormal MRI, shoulder R93.8 and Acute cystitis without hematuria N30.00 [facility] [address] [place] [id number] [place] [address] 15827- 4170 Jan, [facility] [address] [place] [id number] [place] [address] 87068- 4632 Jan, [facility] [address] [place] [id number] [place] [address] 50535- 9143 Jan, [facility] [address] [place] [id number] [place] [address] 07194- 8875 Jan, Abnormal MRI R93.8 [facility] [address] [place] [id number] [place] [address] 10423- 0595 Dec, [facility] [address] [place] [id number] [place] [address] 89336 -7502 15 Dec, 2015 Acute pain of left shoulder M25.512 [facility] [address] [place] [id number] [place] [address] 44964- 8834 Dec, [facility] [address] [id number] [place] [address] 37843- 2137 Dec, [facility] [address] [place] [id number] [place] [address] 30039- 9390 Dec, Acute pain of left shoulder M25.512 [facility] [address] [facility] [id number] [address]- 5145 Nov, [facility] [address] [facility] [id number] [address]- 4425 Nov, Neuroforaminal stenosis of spine M99.89 ; Neck pain M54.2 ; Abnormal mammogram R92.8 ; Essential hypertension I10 and Chronic pain due to trauma G89.21 [facility] [address] [facility] [id number] [place] [address] 49592- 9542 Nov, [facility] [address] [facility] [id number] [address]- 7615 Oct, Acute stress disorder F43.0 [facility] [address] [id number] [address]- 2252 Oct, [facility] [address] [place] [id number] [place] [address] 83983- 0326 Oct, [facility] [address] [place] [id number] [address]- 6190 Oct, [facility] [address] [place] [id number] [address]- 8067 Sep, [facility] [address] [place] [id number] [address]- 8248 August, [facility] [address] [address]- 3819 Jul, Neuroforaminal stenosis of spine M99.89 ; Neck pain M54.2 ; Abnormal mammogram R92.8 and Essential hypertension I10 [facility] [address] [facility] [id number] [address]- 3334 Jul, [facility] [address] [facility] [id number] [address]- 6136 Jul, [facility] [address] [id number] [address]- 7726 Jul, Abnormal mammogram R92.8 [place] [address] [address]- 2432 Jul, [place] [address] [place] [id number] [place] [address] 39384- 2607 Jul, UTI (urinary tract infection) N39.0 [place] [id number] [place] [address] 67103- 9419 Jul, Dysuria R30.0 [place] [id number] [place] [address] 69774- 1948 Jun, [place] [address] [place] [id number] [place] [address] 54002- 6828 Jun, [place] [address] [place] [id number] [place] [address] 05959- 2929 Jun, Hypokalemia E87.6 and Hematuria R31.9 [place] [address] [place] [id number] [place] [address] 12047- 4974 Jun, Hypokalemia E87.6 [place] [id number] [place] [address] 69496- 1557 Jun, [place] [id number] [place] [address] 30184- 3948 Jun, Hypokalemia E87.6 [place] [id number] [place] [address] 23376- 5457 Jun, Hypokalemia E87.6 [place] [id number] [place] [address] 92009- 7036 15 Jun, 2015 Neuroforaminal stenosis of spine M99.89 ; Hypokalemia E87.6 ; Neck pain M54.2 ; Essential hypertension I10 ; Mixed hyperlipidemia E78.2 and Screening breast examination Z12.39 [place] [address], [place] [address]- 6268 Jun, Dysuria R30.0 ; UTI (urinary tract infection) N39.0 and Hematuria R31.9 [facility] [address] [place] [id number] [place] [address] 99348- 6613 May, [facility] [address] 69506- 1103 18 May, 2015 High risk sexual behavior Z72.51 ; Hypokalemia E87.6 ; Neuroforaminal stenosis of spine M99.89 ; Neck pain M54.2 ; Essential hypertension I10 ; Mixed hyperlipidemia E78.2 ; STD exposure Z20.2 and Concern about STD in female without diagnosis Z71.1 [place] [address] 99528- 2509 16 May, 2015 Neuroforaminal stenosis of spine M99.89 ; Neck pain M54.2 ; Hypokalemia E87.6 ; Essential hypertension I10 and Mixed hyperlipidemia E78.2 [place] [address] 29228- 8564 11 May, 2015 [facility] [id number] [place] [address] 64494 -7388 08 May, 2015 High risk sexual behavior Z72.51 ; STD exposure Z20.2 and Concern about STD in female without diagnosis Z71.1 [place] [id number] [place] [address] 08772- 8905 May, [facility] [id number] [place] [address] 41355- 5562 Apr, Neuroforaminal stenosis of spine M99.89 ; Mixed hyperlipidemia E78.2 ; Essential hypertension I10 and Hypokalemia E87.6 [place] [address] 64538- 2839 Mar, [place] [address] 12916- 8864 Mar, Hypokalemia E87.6 [facility] [address] 01333- 5984 Mar, Neuroforaminal stenosis of spine M99.89 ; Mixed hyperlipidemia E78.2 ; Neck pain M54.2 ; Essential hypertension I10 ; Abnormal fasting glucose R73.09 ; Hypokalemia E87.6 and Constipation K59.00 [facility] [id number] [place] [address] 31632- 9320 Feb, Neuroforaminal stenosis of spine M99.89 ; Mixed hyperlipidemia E78.2 ; Neck pain M54.2 ; Essential hypertension I10 ; Abnormal fasting glucose R73.09 ; Hypokalemia E87.6 and Constipation K59.00 [place] [address] 07833- 2219 Feb, Elevated fasting blood sugar R73.01 [place] [address] [place] [id number] [place] [address] 80049- 6500 Feb, Elevated fasting blood sugar R73.01 [place] [address] [id number] [place] [address] 43199- 7532 Feb, Hair loss L65.9 [place] [address] 00940- 2490 Feb, Sinusitis J32.9 ; Essential hypertension I10 and Hair loss L65.9 [place] [id number] [place] [address] 19436- 1394 Jan, [place] [id number] [place] [address] 72480- 5108 Jan, Essential hypertension I10 ; Neuroforaminal stenosis of spine M99.89 ; Neck pain M54.2 ; Mixed hyperlipidemia E78.2 and Anxiety F41.9 [facility] [id number] [place] [address]- [address] Jan, [facility] [address] [address] [id number] [place] [address] 15329- 5569 Jan, Mixed hyperlipidemia E78.2 ; Essential (primary) hypertension I10 ; Strain of muscle, fascia and tendon at neck level, subsequent encounter S16.1XXD and Tension-type headache, unspecified, not intractable G44.209 [facility] [address] [address] Dec, Lumbar back pain 724.2 and Neuroforaminal stenosis of spine 724.00 [facility] [id number] [place] [address] 35[address]- [address] Nov, [facility] [address] [address] Nov, Lumbar back pain 724.2 and Neuroforaminal stenosis of spine 724.00 [place] [address] [address] Nov, Edema 782.3 ; Lumbar back pain 724.2 ; Essential hypertension, benign 401.1 ; Hyperlipemia 272.4 ; Neuroforaminal stenosis of spine 724.00 and Post-concussion headache 339.20 [facility] [place] [address] [place] [id number] [place] [address]- 1007 Nov, [place] [address] [address] Nov, [facility] [id number] [place] [address] 39229- 268[address] Oct, Essential hypertension, benign 401.1 [facility] [id number] [place] [address]1833- [address] Oct, Edema 782.3 ; Lumbar back pain 724.2 ; Essential hypertension, benign 401.1 ; Hyperlipemia 272.4 ; Neuroforaminal stenosis of spine 724.00 and Post-concussion headache 339.20 [facility] [id number] [place] [address] 90062- [address] Oct, [facility] [id number] [place] [address] 07137- 9[address] Oct, Edema 782.3 [place] [id number] [address] Oct, Lumbar back pain 724.2 [facility] [id number] [place] [address] 53[address]- [address] Oct, Cervicalgia 723.1 ; Lumbar back pain 724.2 and High risk medication use V58.69 [facility] [id number] [place] [address] 07657- 6445 Sep, [facility] [id number] [place] [address] 06336- 6722 Sep, Lumbar strain 847.2 [facility] [id number] [place] [address] 55159- 6178 August, Edema 782.3 and Eustachian tube dysfunction 381.81 [facility] [id number] [place] [address] 24128- 4236 August, [facility] [id number] [place] [address] 98200- 8855 August, Eustachian tube dysfunction 381.81 [facility] [id number] [address] 4412 Jul, Otalgia 388.70 and Otitis media 382.9 [facility] [id number] [address] 9595 Jul, [facility] [id number] [address] 7149 Jul, [facility] [id number], [place] [address] 0317 Jul, [facility] [id number] [place] [address] [id number]- 5380 Jul, [facility] [id number] [address] 0702 Jul, [facility] [id number] [place] [address], [place] [address]- 4440 27 Jun, 2014 [facility] [place] [facility] [address] [id number] [place] [address]- 9427 27 Jun, 2014 [facility] [place] [facility] [address] [id number] [place] [address]- 1634 16 Jun, 2014 [facility] [place] [facility] [address] [id number] [place] [address]- 1933 May, 2014 [facility] [place] [facility] [address] [id number] [place] [address]- 8169 May, 2014 [facility] [place] [facility] [address] [id number] [place] [address]- 3436 May, 2014 [facility] [place] [facility] [address] [facility] [id number] [place] [address]- 5453 May, 2014 [facility] [place] [facility] [address] [facility] [id number] [place] [address]- 8572 May, 2014 [facility] [place] [facility] [address] [id number] [place] [address]- 3892 May, 2014 [facility] [place] [facility] [address] [facility] [id number] [place] [address]- 9698 May, 2014 [facility] [place] [facility] [address] [facility] [id number] [place] [address]- 6610 May, [facility] [place] [facility] [address] [facility] [id number] [place] [address]- 0940 May, 2014 [facility] [place] [facility] [address] [id number] [place] [address]- 7179 May, [facility] [place] [facility] [address] [id number] [place] [address]- 4633 Apr, [facility] [place] [facility] [address] [id number] [place] [address]- 0522 Apr, [facility] [place] [facility] [address] [facility] [id number] [place] [address]- 5319 Apr, [facility] [place] [facility] [address] [id number] [place] [address]- 5444 Apr, [facility] [place] [facility] [address] [id number] [place] [address]- 4918 Apr, [facility] [place] [facility] [address] [id number] [place] [address]- 7023 Apr, [facility] [place] [facility] [address] [id number] [place] [address]- 8084 Apr, [facility] [place] [facility] [address] [id number] [place] [address]- 2096 Apr, [facility] [place] [facility] [address] [id number] [place] [address]- 1255 Apr, [facility] [place] [facility] [address] [id number] [place] [address]- 2152 Apr, [facility] [place] [facility] [address] [id number] [place] [address]- 5945 Apr, [facility] [place] [facility] [address] [id number] [place] [address]- 3698 Apr, [facility] [place] [facility] [address] [id number] [place] [address]- 2440 Apr, [facility] [place] [facility] [address] [id number] [place] [address]- 9197 Apr, [facility] [place] [facility] [address] [id number] [address]- 0395 Apr, [facility] [place] [facility] [address] [id number] [place] [address]- 9438 Mar, [facility] [place] [facility] [address] [id number] [place] [address]- 7194 Mar, [facility] [place] [facility] [address] [id number] [place] [address]- 9355 Mar, [facility] [place] [facility] [address] [id number] [place] 0910 Mar, [facility] [place] [facility] [address] [id number] [place] 9739 Feb, [facility] [place] [facility] [address] [id number] [place] 6955 Feb, [facility] [place] [facility] [address] [id number] [place] [address]- 5606 Feb, [facility] [place] [facility] [address] [id number] [place] [address]- 6867 Feb, [facility] [place] [facility] [address] [id number] [place] 0528 Jan, [facility] [place] [facility] [address] [id number] [place] [address]- 5980 Jan, [facility] [place] [facility] [address] [facility] [id number] [place] [address]- 2260 Jan, [facility] [place] [facility] [address] [id number] [place] [address]- 2874 Jan, [facility] [place] [facility] [address] [facility] [id number] [place] [address]- 3827 Jan, [facility] [place] [facility] [address] [facility] [id number] [place] [address]- 7185 Jan, [facility] [place] [facility] [address] [id number] [place] [address]- 5426 Jan, [facility] [place] [facility] [address] [facility] [id number] [place] [address]- 0745 Jan, [facility] [place] [facility] [address] [id number] [place] [address]- 5562 Dec, [facility] [place] [facility] [address] [facility] [id number] [place] [address]- 0560 Dec, [facility] [place] [facility] [address] [id number] [place] [address]- 8225 Dec, [facility] [place] [facility] [address] [id number] [place] [address]- 3114 Dec, [facility] [place] [facility] [address] [id number] [place] [address]- 0057 Oct, [facility] [place] [facility] [address] [id number] [place] [address]- 5109 Oct, [facility] [place] [facility] [address] [id number] [place] [address]- 5473 Oct, [facility] [place] [facility] [address] [id number] [place] [address]- 9016 Oct, [facility] [place] [facility] [address] [id number] [place] [address]- 8787 Oct, [facility] [place] [facility] [address] [id number] [place] [address]- 9506 Oct, [facility] [place] [facility] [address] [id number] [place] [address]- 4553 Oct, [facility] [place] [facility] [address] [id number] [place] [address]- 7600 Oct, [facility] [place] [facility] [address] [id number] [place] [address]- 6867 Sep, [facility] [place] [facility] [address] [id number] [place] [address]- 5359 Sep, [facility] [place] [facility] [address] [id number] [place] [address]- 7144 Sep, [facility] [place] [facility] [address] [id number] [place] [address]- 5675 Sep, [facility] [place] [facility] [address] [id number] [place] [address]- 3219 Sep, [facility] [place] [facility] [address] [id number] [place] [address]- 4199 Sep, [facility] [place] [facility] [address] [id number] [place] [address]- 2574 Sep, [facility] [place] [facility] [address] [id number] [place] [address]- 4050 Sep, [facility] [place] [facility] [address] [id number] [place] [address]- 6031 Sep, [facility] [place] [facility] [address] [id number] [place] [address]- 8952 Sep, [facility] [place] [facility] [address] [id number] [place] [address]- 2861 August, [facility] [place] [facility] [address] [id number] [place] [address]- 9442 August, [facility] [place] [facility] [address] [id number] [place] [address]- 3777 August, [facility] [place] [facility] [address] [id number] [place] [address]- 9767 August, [facility] [place] [facility] [address] [id number] [place] [address]- 1173 August, [facility] [place] [facility] [address] [id number] [place] [address]- 4077 August, [facility] [place] [facility] [address] [id number] [place] [address]- 3652 August, [facility] [place] [facility] [address] [id number] [place] [address]- 5823 August, [facility] [place] [facility] [address] [id number] [place] [address]- 0013 August, [facility] [place] [facility] [address] [id number] [place] [address]- 7830 August, [facility] [place] [facility] [address] [id number] [place] [address]- 3894 August, [facility] [place] [facility] [address] [id number] [place] [address]- 2799 August, [facility] [place] [facility] [address] [id number] [place] [address]- 2879 11 Jul, 2013 [facility] [address] [id number] [place] [address]- 8585 Jul, [facility] [place] [facility] [address] [id number] [place] [address]- 5976 Jul, [facility] [address] [id number] [place] [address]- 0274 Jul, [facility] [place] [facility] [address] [id number] [place] [address]- 7342 Jul, [facility] [place] [facility] [address] [id number] [place] [address]- 1065 Jul, [facility] [place] [facility] [address] [id number] [place] [address]- 3948 Jun, [facility] [place] [facility] [address] [id number] [place] [address]- 5107 Jun, [facility] [place] [facility] [address] [id number] [place] [address]- 7364 May, [facility] [place] [facility] [address] [id number] [place] [address]- 1503 May, [facility] [place] [facility] [address] [id number] [place] [address]- 8297 Apr, [facility] [place] [facility] [address] [id number] [place] [address]- 9584 Apr, [facility] [place] [facility] [address] [id number] [place] [address]- 8149 Apr, [facility] [place] [facility] [address] [id number] [place] [address]- 6131 Apr, [facility] [place] [facility] [address] [id number] [place] [address]- 8713 Apr, [facility] [place] [facility] [address] [id number] [place] [address]- 4981 Apr, [facility] [address] [id number] [place] [address]- 8155 Apr, [facility] [place] [facility] [address] [id number] [place] [address]- 0051 Apr, [facility] [place] [facility] [address] [id number] [place] [address]- 9689 Apr, [facility] [place] [facility] [address] [id number] [place] [address]- 6941 Apr, [facility] [place] [facility] [address] [id number] [place] [address]- 0357 Apr, [facility] [place] [facility] [address] [id number] [place] [address]- 9030 Apr, [facility] [place] [facility] [address] [id number] [place] [address]- 4993 Apr, [facility] [place] [facility] [address] [id number] [place] [address]- 5119 Mar, [facility] [place] [facility] [address] [id number] [place] [address]- 1515 Mar, [facility] [place] [facility] [address] [id number] [place] [address]- 8297 Mar, [facility] [place] [facility] [address] [id number], [place] [address]- 1272 Mar, [facility] [place] [facility] [address] [id number], [place] [address]- 7490 Feb, [facility] [place] [facility] [address] [id number] [place] [address]- 3277 Feb, [facility] [place] [facility] [address] [id number] [place] [address]- 5180 Feb, [facility] [place] [facility] [address] [id number] [place] [address]- 0114 Feb, [facility] [place] [facility] [address] [id number] [place] [address]- 4439 14 Jan, 2013 [facility] [place] [facility] [address] [id number] [place] [address]- 6910 14 Jan, 2013 [facility] [place] [facility] [address] [id number] [place] [address]- 6754 11 Jan, 2013 [facility] [place] [facility] [address] [id number] [place] [address]- 8284 11 Jan, 2013 [facility] [place] [facility] [address] [id number] [place] [address]- 6244 10 Jan, 2013 [facility] [place] [facility] [address] [id number] [place] [address]- 5885 10 Jan, 2013 [facility] [place] [facility] [address] [id number] [place] [address]- 2764 09 Jan, 2013 [facility] [place] [facility] [address] [id number] [place] [address]- 0659 09 Jan, 2013 [facility] [place] [facility] [address] [id number] [place] [address]- 2251 Jan, [facility] [place] [facility] [address] [id number] [place] [address]- 6608 26 Dec, 2012 [facility] [place] [facility] [address] [id number] [place] [address]- 2256 16 Dec, 2012 [facility] [place] [facility] [address] [id number] [place] [address]- 4347 16 Dec, 2012 [facility] [place] [facility] [address] [id number] [place] [address]- 4203 13 Dec, 2012 [facility] [place] [facility] [address] [id number] [place] [address]- 2376 17 Nov, 2012 [facility] [place] [facility] [address] [id number] [place] [address]- 5165 17 Nov, 2012 [facility] [place] [facility] [address] [id number] [place] [address]- 7019 14 Nov, 2012 [facility] [place] [facility] [address] [id number] [place] [address]- 7001 Nov, [facility] [address] [id number] [place] [address]- 7874 Oct, [facility] [address] [id number] [place] [address]- 6723 Sep, [facility] [address] [id number] [place] [address]- 6040 August, [facility] [address] [id number] [place] [address]- 1205 August, [facility] [address] [id number] [place] [address]- 8944 August, [facility] [address] [id number] [place] [address]- 8964 August, [facility] [address] [id number] [place] [address]- 2937 August, [facility] [address] [id number] [place] [address]- 1542 August, [facility] [address] [id number] [place] [address]- 9629 August, [facility] [address] [id number] [place] [address]- 9175 August, [facility] [address] [id number] [place] [address]- 5579 August, [facility] [address] [id number] [place] [address]- 3852 August, [facility] [address] [id number] [place] [address]- 6524 August, [facility] [address] [id number] [place] [address]- 5907 August, [facility] [address] [id number] [place] [address]- 2351 Jul, [facility] [address] [id number] [place] [address]- 5009 Jul, [facility] [place] [facility] [address] [id number] [place] [address]- 6579 Jul, [facility] [address] [id number] [place] [address]- 4900 Jul, [facility] [place] [facility] [address] [id number] [place] [address]- 2807 Jul, [facility] [address] [id number] [place] [address]- 4749 Jul, [facility] [address] [id number] [place] [address]- 2410 Jul, [facility] [address] [id number] [place] [address]- 6399 Jul, [facility] [place] [facility] [address] [id number] [place] [address]- 4648 Jul, [facility] [address] [id number] [place] [address]- 3033 Jul, [facility] [place] [facility] [address] [id number] [place] [address]- 2196 Jul, [facility] [place] [facility] [address] [id number] [place] [address]- 1118 Jun, [facility] [place] [facility] [address] [id number], [place] [address]- 3853 Jun, [facility] [place] [facility] [address] [id number] [place] [address]- 4617 Jun, [facility] [place] [facility] [address] [id number] [place] [address]- 3030 Jun, [facility] [place] [facility] [address] [id number] [place] [address]- 9454 May, [facility] [place] [facility] [address] [id number] [place] [address]- 0771 14 May, 2012 [facility] [address] [id number] [place] [address]- 3856 05 May, 2012 [facility] [place] [facility] [address] [id number] [place] [address]- 2346 04 May, 2012 [facility] [address] [id number] [place] [address]- 1826 04 May, 2012 [facility] [address] [id number] [place] [address]- 2543 May, [facility] [address] [id number] [place] [address]- 7036 Apr, [facility] [address] [id number] [place] [address]- 0660 Apr, [facility] [address] [id number] [place] [address]- 5495 Apr, [facility] [address] [id number] [place] [address]- 2931 Apr, [facility] [address] [id number] [place] [address]- 1760 15 Mar, 2012 [facility] [address] [id number] [place] [address]- 2853 14 Mar, 2012 [facility] [address] [id number] [place] [address]- 3336 14 Mar, 2012 [facility] [address] [id number] [place] [address] 2549 14 Mar, 2012 [facility] [place] [facility] [address] [id number] [place] [address]- 4936 14 Mar, 2012 [facility] [place] [facility] [address] [id number] [place] [address]- 2546 06 Mar, 2012 [facility] [place] [facility] [address] [id number] [place] [address] 9482 Mar, [facility] [place] [facility] [address] [id number] [place] [address]- 1195 Feb, [facility] [place] [facility] [address] [id number] [place] [address]- 6850 Feb, [facility] [place] [facility] [address] [id number] [place] [address] Feb, [facility] [place] [facility] [address] [id number] [place] [address] Feb, [facility] [place] [facility] [address] [id number] [place] [address] Jan, [facility] [place] [facility] [address] [id number] [place] [address] Jan, [facility] [place] [facility] [address] [id number] [place] [address] Jan, [facility] [place] [facility] [address] [id number] [place] [address] Jan, [facility] [place] [facility] [address] [id number] [place] [address] Jan, [facility] [place] [facility] [address] [facility] [id number], [place] [address] Jan, [facility] [place] [facility] [address] [id number], [place] [address] Dec, [facility] [place] [facility] [address] [id number], [place] [address] Dec, [facility] [place] [facility] [address] [id number] [place] [address] Nov, [facility] [place] [facility] [address] [id number], [place] [address] Sep, [facility] [place] [facility] [address] [id number], [place] [address] August, [facility] [place] [facility] [address] [id number] [place] [address] August, [facility] [place] [facility] [address] [id number] [place] [address] August, [facility] [place] [facility] [address] [id number] [place] [address] August, [facility] [place] [facility] [address] [id number] [place] [address] August, [facility] [place] [facility] [address] [id number] [place] [address] Jun, [facility] [place] [facility] [address] [id number] [place] [address] Jun, [facility] [place] [facility] [address] [id number] [place] [address] Apr, [facility] [place] [facility] [address] [id number] [place] [address] Apr, [facility] [place] [facility] [address] [id number] [place] [address] Mar, [facility] [place] [facility] [address] [id number] [place] [address] 22 Feb, 2011 [facility] [place] [facility] [address] [facility] [id number] [place] [address] 14 Feb, 2011 [facility] [place] [facility] [address] [id number] [place] [address] 14 Feb, 2011 [facility] [place] [facility] [address] [id number] [place] [address] 17 Jan, 2011 [facility] [place] [facility] [address] [id number] [place] [address] 15 Jan, 2011 [facility] [place] [facility] [address] [id number] [place] [address] 15 Jan, 2011 [facility] [place] [facility] [address] [id number] [place] [address] 14 Jan, 2011 [facility] [address] [id number] [address] 15 May, 2010 [facility] [id number], [place] [address] Mar, [facility] [id number], [place] [address] Oct, [facility] [id number] [place] [address] Sep, [facility] [id number], [place] [address] Mar, [facility] [id number] [place] [address] Jan, [facility] [id number], [place] [address] Jan, [facility] [id number], [place] [address] May, IMMUNIZATIONS No Known Immunizations SOCIAL HISTORY Never Assessed REASON FOR VISIT Repository PLAN OF CARE VITAL SIGNS MEDICATIONS Medication [...] squamous atypia (no definite dyplasia). Performed at [facility] Dr. Joy. Medical History Acute suppurative otitis [...]
--- OUTSIDE RECORDS SUMMARY | 2018-06-10 05:18 | XMS REPORT ---
Author Author BETI STAUFFER [facility] Address [address] [place] [address] Care Team Providers Care Control Engineer Name Role Phone JULIENNE STAUFFERTA Unavailable PROBLEMS Type Condition ICD9-CM Code [id number] Code Onset Dates Condition Status SNOMED Code Problem Hematuria, unspecified type R31.9 Active 61911687 Problem Anxiety F41.9 Active 07687476 Problem Abnormal renal ultrasound R93.429 Active [id number] Problem Abnormal glucose R73.09 Active 222740316 Problem Chronic pain due to trauma G89.21 Active 236687419 Problem Hypokalemia E87.6 Active 20090729 Problem Neck pain M54.2 Active 64296485 Problem Neuroforaminal stenosis of spine M99.89 Active 026791959911 Problem Mixed hyperlipidemia E78.2 Active 20157935 Problem Essential hypertension I10 Active 06263663 ALLERGIES No Information ENCOUNTERS Encounter Location Date Diagnosis [place] [id number] 55899- 3372 Feb, [place] [address] 48849- 8575 Jan, Hypokalemia E87.6 [facility] [address] [place] [id number] [place] [address] 39167- 7039 Jan, Flank pain R10.9 and Acute right-sided low back pain without sciatica M54.5 [facility] [address] 39868- 9918 Jan, Hypokalemia E87.6 [facility] [address] [place] [id number] [place] [address] 47511- 6497 Jan, [facility] [address] 23506- 2898 Jan, URI, acute J06.9 [place] [address] [place] [id number] [place] [address] 96136- 4937 05 Jan, 2018 Neuroforaminal stenosis of spine M99.89 [place] [address] [place] [id number] [place] [address] 31923- 2734 13 Dec, 2017 Lateral epicondylitis, right elbow M77.11 [place] [address] 91062- 7250 11 Dec, 2017 Allergic rhinitis due to pollen, unspecified seasonality J30.1 and Allergic conjunctivitis of both eyes H10.13 [place] [address] 00353- 5716 10 Dec, 2017 Neuroforaminal stenosis of spine M99.89 [place] [address] [place] [id number] [place] [address] 18820- 6707 Dec, Mixed hyperlipidemia E78.2 [place] [address] 10190- 9862 05 Dec, 2017 Abnormal glucose R73.09 ; Abnormal renal ultrasound R93.429 ; Dysuria R30.0 ; Cystitis without hematuria N30.90 ; Hypokalemia E87.6 ; Mixed hyperlipidemia E78.2 and Hematuria, unspecified type R31.9 [place] [address] [place] [id number] [place] [address] 20316- 9073 Nov, Hypokalemia E87.6 ; Mixed hyperlipidemia E78.2 and Hematuria , unspecified type R31.9 [place] [address] [place] [id number] [place] [address] 21773- 3989 Nov, [place] [address] 43537- 1698 Nov, Hypokalemia E87.6 [place] [address] [place] [id number] [place] [address] 65297- 5902 Nov, [place] [address] [place] [address]- 8869 17 Nov, 2017 Abnormal renal ultrasound R93.429 [facility] [address] [place] [id number] [place] [address] 95890- 5273 Nov, Abnormal renal ultrasound R93.429 [facility] [address] [address] [id number] [place] [address] 18497- 8796 Nov, Hematuria, unspecified type R31.9 and Neuroforaminal stenosis of spine M99.89 [facility] [address] [place] [id number] [place] [address] 25657- 4183 Nov, Dysuria R30.0 [place] [address] [place] [id number] [place] [address] 13367- 2834 Oct, Lateral epicondylitis, right elbow M77.11 [place] [address] [place] [id number] [place] [address] 85803- 8048 Oct, Neuroforaminal stenosis of spine M99.89 ; Visit for TB skin test Z11.1 and Essential hypertension I10 [place] [address] [place] [id number] [place] [address] 87342- 6696 Oct, [place] [address] [place] [id number] [place] [address] 94603- 9418 Oct, Neuroforaminal stenosis of spine M99.89 [place] [address] [place] [id number] [place] [address] 34566- 4452 Oct, Visit for TB skin test Z11.1 [place] [address] [place] [id number] [place] [address] 09448- 5612 Oct, Cystitis without hematuria N30.90 [place] [address] [place] [id number] [place] [address] 77726- 3971 Sep, Screening breast examination Z12.39 [place] [address] [place] [id number] [place] [address] 07020- 1175 Sep, Dysuria R30.0 and Cystitis without hematuria N30.90 [place] [address] [place] [id number] [place] [address] 83485- 8698 14 Sep, 2017 Essential hypertension I10 and Neuroforaminal stenosis of spine M99.89 [place] [address] [place] [id number] [place] [address] 56904- 4668 04 Sep, 2017 Abnormal glucose R73.09 [place] [address] [place] [id number] [place] [address] 49598- 3191 August, Lateral epicondylitis, right elbow M77.11 [place] [address] [place] [id number] [place] [address] 67695- 7839 August, Screen for STD (sexually transmitted disease) Z11.3 [place] [address] [place] [id number] [place] [address] 28202- 3225 August, Neuroforaminal stenosis of spine M99.89 ; Mixed hyperlipidemia E78.2 ; Elevated fasting glucose R73.01 ; Screening mammogram, encounter for Z12.31 and Encounter for well woman exam without gynecological exam Z00.00 [place] [address] [place] [id number] [place] [address] 01610- 2119 August, Neuroforaminal stenosis of spine M99.89 [place] [address] [place] [id number] [place] [address] 36689- 7773 August, Essential hypertension I10 ; Hypokalemia E87.6 and Mixed hyperlipidemia E78.2 [place] [address] [place] [id number] [place] [address] 45638- 8444 Jul, [place] [address] [place] [id number] [place] [address] 40731- 5258 Jul, Neuroforaminal stenosis of spine M99.89 [place] [address] [place] [id number] [place] [address] 18251- 7980 Jul, Lateral epicondylitis, right elbow M77.11 [place] [address] [place] [id number] [place] [address] 90663- 0714 Jul, [place] [id number] [place] [address] 90030- 1609 Jun, High ankle sprain of right lower extremity, initial encounter S93.431A [place] [address] [place] [id number] [place] [address] 53781- 0746 Jun, Essential hypertension I10 [place] [address] [place] [id number] [place] [address] 07397- 3494 Jun, [place] [address] [place] [id number] [place] [address] 84801- 2195 Jun, [place] [address] 06217- 0997 Jun, Neuroforaminal stenosis of spine M99.89 [place] [address] 44229- 6741 Jun, Pain of right upper extremity M79.601 and Essential hypertension I10 [place] [address] [place] [id number] [place] [address] 56660- 6129 Jun, [place] [address] 91007- 6369 Jun, Dysuria R30.0 ; Acute cystitis with hematuria N30.01 and Screen for STD (sexually transmitted disease) Z11.3 [place] [address] [place] [id number] [place] [address] 67806- 4337 May, Chronic pain due to trauma G89.21 [place] [address] [place] [id number] [place] [address] 05646- 4093 May, Essential hypertension I10 [place] [address] [place] [id number] [place] [address] 70059- 5182 May, Neuroforaminal stenosis of spine M99.89 [place] [address] [place] [id number] [place] [address] 44675- 9439 Apr, Allergic reaction, initial encounter T78.40XA [place] [address] [place] [id number] [place] [address] 87687- 5762 Apr, Low back pain, unspecified back pain laterality, unspecified chronicity, with sciatica presence unspecified M54.5 ; Acute cystitis with hematuria N30.01 ; Neuroforaminal stenosis of spine M99.89 ; Bilateral acute serous otitis media, recurrence not specified H65.03 ; Mixed hyperlipidemia E78.2 ; Essential hypertension I10 ; Immunization counseling Z71.89 and Encounter for immunization Z23 [place] [address] [place] [id number] [place] [address] 04531- 3675 08 Apr, 2017 Neck pain M54.2 [place] [address] 16986- 4197 Mar, Neuroforaminal stenosis of spine M99.89 [place] [address] [place] [id number] [place] [address] 61359- 0120 Mar, Pharyngitis due to other organism J02.8 [place] [address] [place] [id number] [place] [address] 68803- 4899 Feb, Neuroforaminal stenosis of spine M99.89 [place] [address] [place] [id number] [place] [address] 98898- 6647 Feb, UTI (urinary tract infection) N39.0 [place] [address] [place] [id number] [place] [address] 70458- 1743 Feb, Recent urinary tract infection Z87.440 ; Neuroforaminal stenosis of spine M99.89 ; Neck pain M54.2 ; Chronic pain due to trauma G89.21 and Recurrent UTI N39.0 [place] [address] [place] [id number] [place] [address] 59827- 4012 Feb, [place] [address] [place] [id number] [place] [address] 03201- 2412 Jan, Neuroforaminal stenosis of spine M99.89 [place] [address] [place] [id number] [place] [address] 40785- 4080 Dec, Neuroforaminal stenosis of spine M99.89 [facility] [address] [place] [id number] [place] [address] 78859- 7105 18 Dec, 2016 Acute seasonal allergic rhinitis due to pollen J30.1 [facility] [address] [place] [id number] [place] [address] 56037- 3893 08 Dec, 2016 [place] [address] 16454- 5036 08 Dec, 2016 Acute seasonal allergic rhinitis, unspecified trigger J30.2 ; Allergic conjunctivitis of both eyes H10.13 and Dysfunction of both eustachian tubes H69.83 [place] [address] 30890- 3838 Dec, [place] [address] 16341- 0668 Dec, Nevus D22.9 [place] [address] 95039- 2995 Nov, Chronic pain due to trauma G89.21 and Neuroforaminal stenosis of spine M99.89 [place] [address] [place] [id number] [place] [address] 83279- 7089 Nov, Neuroforaminal stenosis of spine M99.89 ; Essential hypertension I10 ; Mixed hyperlipidemia E78.2 ; Hypokalemia E87.6 ; Neck pain M54.2 and Nevus D22.9 [place] [address] [place] [id number] [place] [address] 68355- 1581 Oct, Neuroforaminal stenosis of spine M99.89 [place] [address] 93223- 5909 Sep, Neuroforaminal stenosis of spine M99.89 [place] [address] 75375- 4040 Sep, [place] [address] 20808- 1094 August, [facility] [address] [address]- 9780 August, Neck pain M54.2 and Neuroforaminal stenosis of spine M99.89 [facility] [address] [place] [id number] [address]- 7544 August, Routine gynecological examination Z01.419 and Screening breast examination Z12.39 [facility] [address] [place] [id number] [place] [address] 75832- 3226 Jul, [facility] [address] [place] [id number] [place] [address] 44226- 3828 Jul, [facility] [address] [place] [id number] [place] [address] 84243- 0443 Jul, Neuroforaminal stenosis of spine M99.89 [facility] [address] [place] [id number] [place] [address] 70540- 9180 Jul, [facility] [address] [place] [id number] [place] [address] 77665- 7941 Jul, 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 [facility] [address] [place] [id number] [place] [address] 75102- 0336 Jul, [facility] [address] [place] [id number] [address]- 6748 Jul, [facility] [address] [place] [id number] [place] [address] 58331- 4800 Jun, Neuroforaminal stenosis of spine M99.89 [facility] [address] [place] [id number] [place] [address] 97171- 7279 Jun, Uterine leiomyoma, unspecified location D25.9 and Allergic reaction caused by a drug, initial encounter T78.40XA [facility] [address] [place] [id number] [address]- 5442 Jun, [facility] [address] [place] [id number] [place] [address]- 9337 May, UTI symptoms R39.9 and Pain of right sacroiliac joint M53.3 [place] [address] 59464- 8101 May, Neuroforaminal stenosis of spine M99.89 [place] [address] 57806- 6418 May, [place] [address] 64958- 7959 May, Acute mucoid otitis media of left ear H65.112 and Acute non- recurrent maxillary sinusitis J01.00 [place] [address] 80116- 2897 May, Acute bacterial conjunctivitis of both eyes H10.33 ; Left arm pain M79.602 and Hypokalemia E87.6 [place] [address] 28975- 2120 Apr, [place] [address] 80902- 6172 Apr, Neuroforaminal stenosis of spine M99.89 ; Neck pain M54.2 ; Chronic pain due to trauma G89.21 ; Mixed hyperlipidemia E78.2 ; Essential hypertension I10 and Hypokalemia E87.6 [place] [address] [place] [id number] [place] [address] 52714- 1815 Mar, Oral candidiasis B37.0 ; Neuroforaminal stenosis of spine M99.89 ; Neck pain M54.2 and Chronic pain due to trauma G89.21 [place] [address] 62993- 8782 Feb, [place] [address] 02089- 1438 Feb, [place] [address] 39405- 1250 Feb, UTI (urinary tract infection) N39.0 [facility] [address] [place] [id number] [place] [address] 40876- 6268 Feb, Dysuria R30.0 [facility] [address] [place] [id number] [place] [address] 28610- 3558 08 Feb, 2016 Dysuria R30.0 [facility] [address] [place] [id number] [place] [address] 36337- 0462 Feb, Neuroforaminal stenosis of spine M99.89 ; Neck pain M54.2 ; Essential hypertension I10 ; Chronic pain due to trauma G89.21 ; Dysuria R30.0 ; Abnormal MRI, shoulder R93.8 and Acute cystitis without hematuria N30.00 [facility] [address] [place] [id number] [place] [address] 48773- 7868 Jan, [facility] [address] [place] [id number] [place] [address] 68747- 4333 Jan, [facility] [address] [place] [id number] [place] [address] 53980- 8710 Jan, [facility] [address] [place] [id number] [place] [address] 02320- 3081 Jan, Abnormal MRI R93.8 [facility] [address] [place] [id number] [place] [address] 99192- 7318 Dec, [facility] [address] [place] [id number] [place] [address] 14809 -3111 15 Dec, 2015 Acute pain of left shoulder M25.512 [facility] [address] [place] [id number] [place] [address] 31445- 8933 Dec, [facility] [address] [place] [id number] [place] [address] 15022- 2396 Dec, [facility] [address] [place] [id number] [place] [address] 67226- 8590 Dec, Acute pain of left shoulder M25.512 [facility] [address] [facility] [id number] [address]- 8412 Nov, [facility] [address] [facility] [id number] [address]- 4181 Nov, Neuroforaminal stenosis of spine M99.89 ; Neck pain M54.2 ; Abnormal mammogram R92.8 ; Essential hypertension I10 and Chronic pain due to trauma G89.21 [facility] [address] [facility] [id number] [place] [address] 81411- 9328 Nov, [facility] [address] [facility] [id number] [address]- 7658 Oct, Acute stress disorder F43.0 [facility] [address] [place] [id number] [address]- 6059 Oct, [facility] [address] [place] [id number] [place] [address] 74238- 2237 Oct, [facility] [address] [place] [id number] [address]- 3151 Oct, [facility] [address] [place] [id number] [address]- 2876 Sep, [facility] [address] [place] [id number] [address]- 9226 August, [facility] [address] [address]- 8870 Jul, Neuroforaminal stenosis of spine M99.89 ; Neck pain M54.2 ; Abnormal mammogram R92.8 and Essential hypertension I10 [facility] [address] [facility] [id number], [place] [address]- 0132 Jul, [facility] [address] [facility] [id number] [address]- 7167 Jul, [facility] [address] [place] [id number] [address]- 0873 Jul, Abnormal mammogram R92.8 [place] [address] [address]- 7668 Jul, [place] [address] [place] [id number] [place] [address] 54816- 1824 Jul, UTI (urinary tract infection) N39.0 [place] [id number] [place] [address] 49948- 0921 Jul, Dysuria R30.0 [place] [id number] [place] [address] 80457- 0789 Jun, [place] [address] [place] [id number] [place] [address] 49931- 3852 Jun, [place] [address] [place] [id number] [place] [address] 24739- 6144 Jun, Hypokalemia E87.6 and Hematuria R31.9 [place] [address] [place] [id number] [place] [address] 39682- 2166 Jun, Hypokalemia E87.6 [place] [id number] [place] [address] 00258- 8756 Jun, [place] [id number] [place] [address] 80634- 2674 Jun, Hypokalemia E87.6 [place] [id number] [place] [address] 29306- 1718 Jun, Hypokalemia E87.6 [place] [id number] [place] [address] 08114- 8569 15 Jun, 2015 Neuroforaminal stenosis of spine M99.89 ; Hypokalemia E87.6 ; Neck pain M54.2 ; Essential hypertension I10 ; Mixed hyperlipidemia E78.2 and Screening breast examination Z12.39 [place] [address] [address]- 7929 Jun, Dysuria R30.0 ; UTI (urinary tract infection) N39.0 and Hematuria R31.9 [facility] [address] [id number] [place] [address] 20980- 4831 May, [facility] [address] 76067- 8167 18 May, 2015 High risk sexual behavior Z72.51 ; Hypokalemia E87.6 ; Neuroforaminal stenosis of spine M99.89 ; Neck pain M54.2 ; Essential hypertension I10 ; Mixed hyperlipidemia E78.2 ; STD exposure Z20.2 and Concern about STD in female without diagnosis Z71.1 [place] [address] 20260- 7505 16 May, 2015 Neuroforaminal stenosis of spine M99.89 ; Neck pain M54.2 ; Hypokalemia E87.6 ; Essential hypertension I10 and Mixed hyperlipidemia E78.2 [place] [address] 54384- 2607 11 May, 2015 [facility] [id number] [place] [address] 72948 -0101 08 May, 2015 High risk sexual behavior Z72.51 ; STD exposure Z20.2 and Concern about STD in female without diagnosis Z71.1 [place] [id number] [place] [address] 28870- 3668 May, [facility] [id number] [place] [address] 87729- 2800 Apr, Neuroforaminal stenosis of spine M99.89 ; Mixed hyperlipidemia E78.2 ; Essential hypertension I10 and Hypokalemia E87.6 [place] [address] 44225- 0956 Mar, [place] [address] 29414- 5820 Mar, Hypokalemia E87.6 [facility] [address] 25028- 2112 Mar, Neuroforaminal stenosis of spine M99.89 ; Mixed hyperlipidemia E78.2 ; Neck pain M54.2 ; Essential hypertension I10 ; Abnormal fasting glucose R73.09 ; Hypokalemia E87.6 and Constipation K59.00 [facility] [id number] [place] [address] 91002- 0779 Feb, Neuroforaminal stenosis of spine M99.89 ; Mixed hyperlipidemia E78.2 ; Neck pain M54.2 ; Essential hypertension I10 ; Abnormal fasting glucose R73.09 ; Hypokalemia E87.6 and Constipation K59.00 [place] [address] 15887- 1025 Feb, Elevated fasting blood sugar R73.01 [place] [address] [id number] [place] [address] 02353- 1376 Feb, Elevated fasting blood sugar R73.01 [place] [id number] [place] [address] 96478- 5011 Feb, Hair loss L65.9 [place] [address] 88186- 2957 Feb, Sinusitis J32.9 ; Essential hypertension I10 and Hair loss L65.9 [place] [id number] [place] [address] 89997- 4287 Jan, [place] [id number] [place] [address] 55987- 3487 Jan, Essential hypertension I10 ; Neuroforaminal stenosis of spine M99.89 ; Neck pain M54.2 ; Mixed hyperlipidemia E78.2 and Anxiety F41.9 [place] [address] [address] [id number] [place] [address] 25[address]- 9568 Jan, [place] [address] [address] [id number] [place] [address] 45658- 1415 Jan, Mixed hyperlipidemia E78.2 ; Essential (primary) hypertension I10 ; Strain of muscle, fascia and tendon at neck level, subsequent encounter S16.1XXD and Tension-type headache, unspecified, not intractable G44.209 [facility] [address] [address] Dec, Lumbar back pain 724.2 and Neuroforaminal stenosis of spine 724.00 [facility] [id number] [place] [address] 32778- 4207 Nov, [facility] [address] [address] Nov, Lumbar back pain 724.2 and Neuroforaminal stenosis of spine 724.00 [place] [address] [address]- [address] Nov, Edema 782.3 ; Lumbar back pain 724.2 ; Essential hypertension, benign 401.1 ; Hyperlipemia 272.4 ; Neuroforaminal stenosis of spine 724.00 and Post-concussion headache 339.20 [place] [address] [place] [id number] [place] [address] 86017- 5189 Nov, [place] [address] [address] Nov, [facility] [id number] [place] [address] 72234- 3316 Oct, Essential hypertension, benign 401.1 [facility] [id number] [place] [address] 24225- 4353 Oct, Edema 782.3 ; Lumbar back pain 724.2 ; Essential hypertension, benign 401.1 ; Hyperlipemia 272.4 ; Neuroforaminal stenosis of spine 724.00 and Post-concussion headache 339.20 [facility] [id number] [place] [address] 23459- 5230 Oct, [facility] [id number] [place] [address] 97826- 0305 Oct, Edema 782.3 [place] [id number] [address] Oct, Lumbar back pain 724.2 [facility] [id number] [place] [address] 13304- 6695 Oct, Cervicalgia 723.1 ; Lumbar back pain 724.2 and High risk medication use V58.69 [facility] [id number] [place] [address] 27837- 1562 Sep, [facility] [id number] [place] [address] 34855- 1737 Sep, Lumbar strain 847.2 [facility] [id number] [place] [address] 05245- 6921 August, Edema 782.3 and Eustachian tube dysfunction 381.81 [facility] [id number] [place] [address] 30720- [address] August, [facility] [facility] [id number] [place] [address] August, Eustachian tube dysfunction 381.81 [facility] [id number] [address] Jul, Otalgia 388.70 and Otitis media 382.9 [facility] [id number] [address] Jul, [facility] [id number] [address] 65[address] Jul, [facility] [id number] [address] Jul, [facility] [id number] [place] [address]- 3073 Jul, [facility] [id number] [address] 4[address] Jul, [facility] [id number] [place] [address], [place] [address] 8519 27 Jun, 2014 [facility] [place] [facility] [address] [id number] [place] [address]- 2898 27 Jun, 2014 [facility] [place] [facility] [address] [id number] [place] [address]- 7311 16 Jun, 2014 [facility] [place] [facility] [address] [id number] [place] [address]- 5407 May, 2014 [facility] [place] [facility] [address] [id number] [place] [address]- 0913 May, 2014 [facility] [place] [facility] [address] [id number] [place] [address]- 2881 May, 2014 [facility] [place] [facility] [address] [facility] [id number] [place] [address]- 7508 May, 2014 [facility] [place] [facility] [address] [facility] [id number] [place] [address]- 6706 May, 2014 [facility] [place] [facility] [address] [id number] [place] [address]- 3142 May, 2014 [facility] [place] [facility] [address] [facility] [id number] [place] [address]- 8858 May, 2014 [facility] [place] [facility] [address] [facility] [id number] [place] [address]- 2619 May, [facility] [place] [facility] [address] [facility] [id number] [place] [address]- 2953 May, 2014 [facility] [place] [facility] [address] [id number] [place] [address]- 6285 May, [facility] [place] [facility] [address] [id number] [place] [address]- 1739 Apr, [facility] [place] [facility] [address] [id number] [place] [address]- 4453 Apr, [facility] [place] [facility] [address] [facility] [id number] [place] [address]- 6750 Apr, [facility] [place] [facility] [address] [id number] [place] [address]- 7909 Apr, [facility] [place] [facility] [address] [id number] [place] [address]- 1658 Apr, [facility] [place] [facility] [address] [id number] [place] [address]- 9517 Apr, [facility] [place] [facility] [address] [id number] [place] [address]- 1929 Apr, [facility] [place] [facility] [address] [id number] [place] [address]- 5685 Apr, [facility] [place] [facility] [address] [id number] [place] [address]- 6221 Apr, [facility] [place] [facility] [address] [id number] [place] [address]- 9088 Apr, [facility] [place] [facility] [address] [id number] [place] [address]- 7402 Apr, [facility] [place] [facility] [address] [id number] [place] [address]- 2691 Apr, [facility] [place] [facility] [address] [id number] [place] [address]- 0261 Apr, [facility] [place] [facility] [address] [id number] [place] [address]- 8142 Apr, [facility] [place] [facility] [address] [id number], [place] [address]- 6675 Apr, [facility] [place] [facility] [address] [id number] [place] [address]- 6196 Mar, [facility] [place] [facility] [address] [id number] [place] [address]- 3422 Mar, [facility] [place] [facility] [address] [id number] [place] [address]- 7411 Mar, [facility] [place] [facility] [address] [id number] [place] [address] Mar, [facility] [place] [facility] [address] [id number] [place] [address] Feb, [facility] [place] [facility] [address] [id number] [place] 1227 Feb, [facility] [place] [facility] [address] [id number] [place] [address]- 2383 Feb, [facility] [place] [facility] [address] [id number] [place] [address]- 9501 Feb, [facility] [place] [facility] [address] [id number] [place] [address] Jan, [facility] [place] [facility] [address] [id number] [place] [address]- 7922 Jan, [facility] [place] [facility] [address] [facility] [id number] [place] [address]- 7330 Jan, [facility] [place] [facility] [address] [id number] [place] [address]- 1164 Jan, [facility] [place] [facility] [address] [facility] [id number] [place] [address]- 5249 Jan, [facility] [place] [facility] [address] [facility] [id number] [place] [address]- 8886 Jan, [facility] [place] [facility] [address] [id number] [place] [address]- 5781 Jan, [facility] [place] [facility] [address] [facility] [id number] [place] [address]- 3293 Jan, [facility] [place] [facility] [address] [id number] [place] [address]- 1781 Dec, [facility] [place] [facility] [address] [facility] [id number] [place] [address]- 6059 Dec, [facility] [place] [facility] [address] [id number] [place] [address]- 7434 Dec, [facility] [place] [facility] [address] [id number] [place] [address]- 0896 Dec, [facility] [place] [facility] [address] [id number] [place] [address]- 2630 Oct, [facility] [place] [facility] [address] [id number] [place] [address]- 9116 Oct, [facility] [place] [facility] [address] [id number] [place] [address]- 9140 Oct, [facility] [place] [facility] [address] [id number] [place] [address]- 6476 Oct, [facility] [place] [facility] [address] [id number] [place] [address]- 1820 Oct, [facility] [place] [facility] [address] [id number] [place] [address]- 9391 Oct, [facility] [place] [facility] [address] [id number] [place] [address]- 7707 Oct, [facility] [place] [facility] [address] [id number] [place] [address]- 7820 Oct, [facility] [place] [facility] [address] [id number] [place] [address]- 4713 Sep, [facility] [place] [facility] [address] [id number] [place] [address]- 1567 Sep, [facility] [place] [facility] [address] [id number] [place] [address]- 8425 Sep, [facility] [place] [facility] [address] [id number] [place] [address]- 1628 Sep, [facility] [place] [facility] [address] [id number] [place] [address]- 3741 Sep, [facility] [place] [facility] [address] [id number] [place] [address]- 2788 Sep, [facility] [place] [facility] [address] [id number] [place] [address]- 8923 Sep, [facility] [place] [facility] [address] [id number] [place] [address]- 6831 Sep, [facility] [place] [facility] [address] [id number] [place] [address]- 8029 Sep, [facility] [place] [facility] [address] [id number] [place] [address]- 9457 Sep, [facility] [place] [facility] [address] [id number] [place] [address]- 1927 August, [facility] [place] [facility] [address] [id number] [place] [address]- 6920 August, [facility] [place] [facility] [address] [id number] [place] [address]- 0577 August, [facility] [place] [facility] [address] [id number] [place] [address]- 1723 August, [facility] [place] [facility] [address] [id number] [place] [address]- 1004 August, [facility] [place] [facility] [address] [id number] [place] [address]- 9338 August, [facility] [place] [facility] [address] [id number] [place] [address]- 1507 August, [facility] [place] [facility] [address] [id number] [place] [address]- 9854 August, [facility] [place] [facility] [address] [id number] [place] [address]- 5424 August, [facility] [place] [facility] [address] [id number] [place] [address]- 1131 August, [facility] [place] [facility] [address] [id number] [place] [address]- 7162 August, [facility] [place] [facility] [address] [id number] [place] [address]- 1489 August, [facility] [place] [facility] [address] [id number] [place] [address]- 4649 11 Jul, [address] [facility] [address] [id number] [place] [address]- 3859 Jul, [facility] [place] [facility] [address] [id number] [place] [address]- 6188 Jul, [facility] [address] [id number] [place] [address]- 5383 Jul, [facility] [place] [facility] [address] [id number] [place] [address]- 7619 Jul, [facility] [place] [facility] [address] [id number] [place] [address]- 5939 Jul, [facility] [place] [facility] [address] [id number] [place] [address]- 4231 Jun, [facility] [place] [facility] [address] [id number] [place] [address]- 5919 Jun, [facility] [place] [facility] [address] [id number] [place] [address]- 3188 May, [facility] [place] [facility] [address] [id number] [place] [address]- 3284 May, [facility] [place] [facility] [address] [id number] [place] [address]- 9302 Apr, [facility] [place] [facility] [address] [id number] [place] [address]- 3797 Apr, [facility] [place] [facility] [address] [id number] [place] [address]- 6758 Apr, [facility] [place] [facility] [address] [id number] [place] [address]- 3370 Apr, [facility] [place] [facility] [address] [id number] [place] [address]- 2977 Apr, [facility] [place] [facility] [address] [id number] [place] [address]- 2772 Apr, [facility] [address] [id number] [place] [address]- 2423 Apr, [facility] [place] [facility] [address] [id number] [place] [address]- 0442 Apr, [facility] [place] [facility] [address] [id number] [place] [address]- 8707 Apr, [facility] [place] [facility] [address] [id number] [place] [address]- 9613 Apr, [facility] [place] [facility] [address] [id number] [place] [address]- 9924 Apr, [facility] [place] [facility] [address] [id number] [place] [address]- 0559 Apr, [facility] [place] [facility] [address] [id number] [place] [address]- 0787 Apr, [facility] [place] [facility] [address] [id number] [place] [address]- 7538 Mar, [facility] [place] [facility] [address] [id number] [place] [address]- 7531 Mar, [facility] [place] [facility] [address] [id number] [place] [address]- 6634 Mar, [facility] [place] [facility] [address] [id number], [place] [address]- 3129 Mar, [facility] [place] [facility] [address] [id number], [place] [address]- 2077 Feb, [facility] [place] [facility] [address] [id number] [place] [address]- 5265 Feb, [facility] [place] [facility] [address] [id number] [place] [address]- 0748 Feb, [facility] [place] [facility] [address] [id number] [place] [address]- 5618 Feb, [facility] [place] [facility] [address] [id number] [place] [address]- 2996 14 Jan, 2013 [facility] [place] [facility] [address] [id number] [place] [address]- 9767 14 Jan, 2013 [facility] [place] [facility] [address] [id number] [place] [address]- 1800 11 Jan, 2013 [facility] [place] [facility] [address] [id number] [place] [address]- 3602 11 Jan, 2013 [facility] [place] [facility] [address] [id number] [place] [address]- 1876 10 Jan, 2013 [facility] [place] [facility] [address] [id number] [place] [address]- 9949 10 Jan, 2013 [facility] [place] [facility] [address] [id number] [place] [address]- 6194 09 Jan, 2013 [facility] [place] [facility] [address] [id number] [place] [address]- 5950 09 Jan, 2013 [facility] [place] [facility] [address] [id number] [place] [address]- 1701 Jan, [facility] [place] [facility] [address] [id number] [place] [address]- 9977 26 Dec, 2012 [facility] [place] [facility] [address] [id number] [place] [address]- 4182 16 Dec, 2012 [facility] [place] [facility] [address] [id number] [place] [address]- 2145 16 Dec, 2012 [facility] [place] [facility] [address] [id number] [place] [address]- 4679 13 Dec, 2012 [facility] [place] [facility] [address] [id number] [place] [address]- 1201 17 Nov, 2012 [facility] [place] [facility] [address] [id number] [place] [address]- 1717 17 Nov, 2012 [facility] [place] [facility] [address] [id number] [place] [address]- 4743 14 Nov, 2012 [facility] [place] [facility] [address] [id number] [place] [address]- 8574 Nov, [facility] [address] [id number] [place] [address]- 8835 Oct, [facility] [address] [id number] [place] [address]- 3815 Sep, [facility] [address] [id number] [place] [address]- 2797 August, [facility] [address] [id number] [place] [address]- 6505 August, [facility] [address] [id number] [place] [address]- 8669 August, [facility] [address] [id number] [place] [address]- 2001 August, [facility] [address] [id number] [place] [address]- 5358 August, [facility] [address] [id number] [place] [address]- 5005 August, [facility] [address] [id number] [place] [address]- 0843 August, [facility] [address] [id number] [place] [address]- 2844 August, [facility] [address] [id number] [place] [address]- 1081 August, [facility] [address] [id number] [place] [address]- 1440 August, [facility] [address] [id number] [place] [address]- 1296 August, [facility] [address] [id number] [place] [address]- 2032 August, [facility] [address] [id number] [place] [address]- 6454 Jul, [facility] [address] [id number] [place] [address]- 8859 Jul, [facility] [place] [facility] [address] [id number] [place] [address]- 7317 Jul, [facility] [address] [id number] [place] [address]- 3949 Jul, [facility] [place] [facility] [address] [id number] [place] [address]- 5367 Jul, [facility] [address] [id number] [place] [address]- 5769 Jul, [facility] [address] [id number] [place] [address]- 3372 Jul, [facility] [address] [id number] [place] [address]- 8472 Jul, [facility] [place] [facility] [address] [id number] [place] [address]- 9738 Jul, [facility] [address] [id number] [place] [address]- 5924 Jul, [facility] [place] [facility] [address] [id number] [place] [address]- 2226 Jul, [facility] [place] [facility] [address] [id number] [place] [address]- 6492 Jun, [facility] [place] [facility] [address] [id number], [place] [address]- 3751 Jun, [facility] [place] [facility] [address] [id number] [place] [address]- 1284 Jun, [facility] [place] [facility] [address] [id number] [place] [address]- 1398 Jun, [facility] [place] [facility] [address] [id number] [place] [address]- 0179 May, [facility] [place] [facility] [address] [id number] [place] [address]- 3202 14 May, 2012 [facility] [address] [id number] [place] [address]- 5426 05 May, 2012 [facility] [place] [facility] [address] [id number] [place] [address]- 8606 04 May, 2012 [facility] [address] [id number] [place] [address]- 4946 04 May, 2012 [facility] [address] [id number] [place] [address]- 2541 May, [facility] [address] [id number] [place] [address]- 6643 Apr, [facility] [address] [id number] [place] [address]- [address] Apr, [facility] [address] [id number] [place] [address]- [address] Apr, [facility] [address] [id number] [place] [address]- 5586 Apr, [facility] [address] [id number] [place] [address]- 7155 15 Mar, 2012 [facility] [address] [id number] [place] [address]- 5090 14 Mar, [address] [facility] [address] [id number] [place] [address]- 5506 14 Mar, [address] [facility] [address] [id number] [place] [address] 2547 14 Mar, 2012 [facility] [place] [facility] [address] [id number] [place] [address]- 9926 14 Mar, 2012 [facility] [place] [facility] [address] [id number] [place] [address]- 2546 06 Mar, 2012 [facility] [place] [facility] [address] [id number] [place] [address]- 3671 Mar, [facility] [place] [facility] [address] [id number] [place] [address]- 1731 Feb, [facility] [place] [facility] [address] [id number] [place] [address]- 8182 Feb, [facility] [place] [facility] [address] [id number] [place] [address]- 2141 Feb, [facility] [place] [facility] [address] [id number] [place] [address]- 0007 Feb, [facility] [place] [facility] [address] [id number] [place] [address]- 6239 Jan, [facility] [place] [facility] [address] [id number] [place] [address] Jan, [facility] [place] [facility] [address] [id number] [place] [address] Jan, [facility] [place] [facility] [address] [id number] [place] [address] Jan, [facility] [place] [facility] [address] [id number] [place] [address] Jan, [facility] [place] [facility] [address] [facility] [id number], [place] [address] Jan, [facility] [place] [facility] [address] [id number], [place] [address] Dec, [facility] [place] [facility] [address] [id number], [place] [address] Dec, [facility] [place] [facility] [address] [id number] [place] [address] Nov, [facility] [place] [facility] [address] [id number], [place] [address] Sep, [facility] [place] [facility] [address] [id number], [place] [address] August, [facility] [place] [facility] [address] [id number] [place] [address] August, [facility] [place] [facility] [address] [id number] [place] [address] August, [facility] [place] [facility] [address] [id number] [place] [address] August, [facility] [place] [facility] [address] [id number] [place] [address] August, [facility] [place] [facility] [address] [id number] [place] [address] Jun, [facility] [place] [facility] [address] [id number] [place] [address] Jun, [facility] [place] [facility] [address] [id number] [place] [address] Apr, [facility] [place] [facility] [address] [id number] [place] [address] Apr, [facility] [place] [facility] [address] [id number] [place] [address] Mar, [facility] [place] [facility] [address] [id number] [place] [address] 22 Feb, 2011 [facility] [place] [facility] [address] [facility] [id number] [place] [address] 14 Feb, 2011 [facility] [place] [facility] [address] [id number] [place] [address] 14 Feb, 2011 [facility] [place] [facility] [address] [id number] [place] [address] 17 Jan, 2011 [facility] [place] [facility] [address] [id number] [place] [address] 15 Jan, 2011 [facility] [place] [facility] [address] [id number] [place] [address] 15 Jan, 2011 [facility] [place] [facility] [address] [id number] [place] [address] 14 Jan, 2011 [facility] [address] [id number], [place] [address] 15 May, 2010 [facility] [id number], [place] [address] Mar, [facility] [id number], [place] [address] Oct, [facility] [id number] [place] [address] Sep, [facility] [id number] [place] [address] Mar, [facility] [id number] [place] [address] Jan, [facility] [id number] [address] Jan, [facility] [id number] [address] May, IMMUNIZATIONS No Known Immunizations SOCIAL [...] atypia (no definite dyplasia). Performed at [facility] Dr. Joy. Medical History Acute [...]
--- OUTSIDE RECORDS SUMMARY | 2018-06-10 05:18 | XMS REPORT ---
Author Author SIMA HODGES Organization [facility] Address [address] [place] [address] Care Team Providers Care Surgery Aid Name Role Phone SIMA HODGES Unavailable PROBLEMS Type Condition ICD9-CM Code [id number] Code Onset Dates Condition Status SNOMED Code Problem Neck pain M54.2 Active 13364788 Problem Mixed hyperlipidemia E78.2 Active 93177816 Problem Essential hypertension I10 Active 91590590 Problem Abnormal mammogram R92.8 Active 699440622 Problem Abnormal ultrasound of uterus R93.5 Active 200160075 Problem Neuroforaminal stenosis of spine M99.89 Active 202436752792 Problem Anxiety F41.9 Active 63030317 Problem Acute cystitis without hematuria N30.00 Active 91329574 Problem Abnormal MRI, shoulder R93.8 Active 570889531 Problem Abnormal fasting glucose R73.09 Active 494108265 Problem Hypokalemia E87.6 Active 54903536 Problem Chronic pain due to 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 must last 4 weeks 1 tablet as needed August, 28 days Active RESULTS No Results PROCEDURES No Known procedures IMMUNIZATIONS No Known Immunizations MEDICAL (GENERAL) HISTORY Type Description Date Medical [...]
--- OUTSIDE RECORDS SUMMARY | 2018-06-10 05:18 | XMS REPORT ---
Author Author VINOD CARDENAS Organization [facility] Address [address] [place] [address] Care Team Providers Care Buckle Gluer Name Role Phone VINOD CARDENAS Unavailable PROBLEMS Type Condition ICD9-CM Code [id number] Code Onset Dates Condition Status SNOMED Code Problem Neck pain M54.2 Active 25133238 Problem Mixed hyperlipidemia E78.2 Active 77733381 Problem Essential hypertension I10 Active 35547111 Problem Abnormal mammogram R92.8 Active 843280045 Problem Abnormal ultrasound of uterus R93.5 Active 396671398 Problem Neuroforaminal stenosis of spine M99.89 Active 897229814598 Problem Anxiety F41.9 Active 65857116 Problem Acute cystitis without hematuria N30.00 Active 91749600 Problem Abnormal MRI, shoulder R93.8 Active 446058339 Problem Abnormal fasting glucose R73.09 Active 274183889 Problem Hypokalemia E87.6 Active 78116605 Problem Chronic pain due to trauma G89.21 Active 358278539 Problem Acute stress disorder F43.0 Active 70192539 ALLERGIES No Information SOCIAL HISTORY Never Assessed PLAN OF CARE VITAL SIGNS MEDICATIONS Unknown [...]
--- OUTSIDE RECORDS SUMMARY | 2018-06-10 05:18 | XMS REPORT ---
Author Author SIMA HODGES Organization [facility] Address [address] [place] [address] Care Team Providers Care Corrective Therapy Aide Teacher Name Role Phone SIMA HODGES Unavailable PROBLEMS Type Condition ICD9-CM Code QHL24-TV Code Onset Dates Condition Status SNOMED Code Problem Neck pain M54.2 Active 50209975 Problem Mixed hyperlipidemia E78.2 Active 44116312 Problem Essential hypertension I10 Active 12520054 Problem Abnormal mammogram R92.8 Active 073684763 Problem Abnormal ultrasound of uterus R93.5 Active 955332261 Problem Neuroforaminal stenosis of spine M99.89 Active 978378500797 Problem Anxiety F41.9 Active 32899869 Problem Acute cystitis without hematuria N30.00 Active 78395640 Problem Abnormal MRI, shoulder R93.8 Active 896391491 Problem Abnormal fasting glucose R73.09 Active 940862836 Problem Hypokalemia E87.6 Active 94091095 Problem Chronic pain due to trauma G89.21 Active 464389445 Problem Acute stress disorder F43.0 Active 77245121 ALLERGIES No Information SOCIAL HISTORY Never Assessed PLAN OF CARE VITAL SIGNS MEDICATIONS Medication Instructions Dosage Frequency Start Date End Date Duration Status Floxin Otic 0.3 % Otic twice a day 5 drops into affected ear 12h May, Jun, 05 days Active RESULTS No Results PROCEDURES No Known procedures IMMUNIZATIONS No Known Immunizations MEDICAL (GENERAL) HISTORY Type Description Date Medical History hypertension Medical History Colposcopy with loop electrode excision of the cervix was performed 06/2012, mild squamous atypia (no definite dyplasia). Performed at [facility] Dr. Joy. Medical History Acute [...]
--- OUTSIDE RECORDS SUMMARY | 2018-06-10 05:18 | XMS REPORT ---
Author Author MELVA MARINO [facility] Address [address] [place] [address] Care Team Providers Care End Worker Name Role Phone MARINO FRYE Unavailable PROBLEMS Type Condition ICD9-CM Code [id number] Code Onset Dates Condition Status SNOMED Code Problem Neck pain M54.2 Active 94146134 Problem Mixed hyperlipidemia E78.2 Active 43551037 Problem Essential hypertension I10 Active 72453385 Problem Abnormal mammogram R92.8 Active 095710494 Problem Abnormal ultrasound of uterus R93.5 Active 166895425 Problem Neuroforaminal stenosis of spine M99.89 Active 326717134307 Problem Anxiety F41.9 Active 02444918 Problem Acute cystitis without hematuria N30.00 Active 56415250 Problem Abnormal MRI, shoulder R93.8 Active 039931732 Problem Abnormal fasting glucose R73.09 Active 897074935 Problem Hypokalemia E87.6 Active 85542160 Problem Chronic pain due to trauma G89.21 Active 973792559 Problem Acute stress disorder F43.0 Active 05315567 ALLERGIES Substance Reaction Event Type Date Status Macrobid rash Drug Allergy May, Active Cipro hives Drug Allergy May, Active Amitriptyline HCl dizziness Drug Allergy May, Active Peanut Unknown Non Drug Allergy May, Active SOCIAL HISTORY Never Assessed PLAN OF CARE Activity Details Follow Up as scheduled with Elvi Reason: VITAL SIGNS Height 62 in 2016-06-07 Weight 175.0 lbs 2016-06-07 Temperature 98.9 degrees Fahrenheit 2016-06-07 Heart Rate 84 bpm 2016-06-07 Respiratory Rate 20 2016-06-07 BMI 32.00 kg/m2 2016-06-07 Blood pressure systolic 133 mmHg 2016-06-07 Blood pressure diastolic 81 mmHg 2016-06-07 MEDICATIONS Medication Instructions Dosage Frequency Start Date End Date Duration Status Triamterene-HCTZ 37.5-25 MG Orally Once a day 1 tablet in the morning 24h Active Amlodipine Besylate 5 mg Orally Once a day 1 tablet 24h Active Floxin Otic 0.3 % Otic twice a day 5 drops into affected ear 12h May, Jun, 05 days Active Meclizine HCl 25 MG Orally Once a day 1 tablet as needed 24h Active Hydrocodone-Acetaminophen 5-325 MG Orally 3 -4 times a day prn. must last 4 weeks 1 tablet as needed Active Cyclobenzaprine HCl 10 mg orally tid prn 1 tablet Active Klor-Con 10 10 MEQ Orally Once a day 2 tablet with food 24h Active Flonase Allergy Relief 50 MCG/ACT Nasally Once a day 1 spray in each nostril 24h May, 30 day(s) Active Pravastatin Sodium 20 mg TAKE ONE TABLET BY MOUTH AT BEDTIME 30 Active Fish Oil 1000 MG Orally Once a day 1 capsule 24h Active RESULTS Name Result Date Reference Range UA LONG DIP (IN HOUSE) 2016-06-07 Lot # [id number] Exp date Clarity Clear Color Yellow Odor None GLU Negative JUNIOR Negative KET Negative SG 1.020 BLO Negaitve pH 7.0 Protein Negative URO 0.2 NIT Negative YENY Negative Lot # Exp date PROCEDURES Procedure Date Ordered Result Body Site URINALYSIS, AUTO, W/O SCOPE Jun 07, 2016 IMMUNIZATIONS No Known Immunizations MEDICAL (GENERAL) HISTORY Type Description Date Medical History hypertension Medical History Colposcopy with loop electrode excision of the cervix was performed 06/2012, mild squamous atypia (no definite dyplasia). Performed at [facility] Dr. Joy. Medical History Acute suppurative otitis [...]
--- OUTSIDE RECORDS SUMMARY | 2018-06-10 05:19 | XMS REPORT ---
Author Author SIMA HODGES [facility] Address [address] [place] [address] Care Team Providers Care Import Customs Clearing Agent Name Role Phone SIMA HODGES Unavailable PROBLEMS Type Condition ICD9-CM Code VCE25-GF Code Onset Dates Condition Status SNOMED Code Problem Neck pain M54.2 Active 77071482 Problem Mixed hyperlipidemia E78.2 Active 97122567 Problem Essential hypertension I10 Active 23851540 Problem Abnormal mammogram R92.8 Active 547767002 Problem Abnormal ultrasound of uterus R93.5 Active 748623034 Problem Neuroforaminal stenosis of spine M99.89 Active 285639281553 Problem Anxiety F41.9 Active 56658932 Problem Acute cystitis without hematuria N30.00 Active 94503942 Problem Abnormal MRI, shoulder R93.8 Active 718736001 Problem Abnormal fasting glucose R73.09 Active 876108612 Problem Hypokalemia E87.6 Active 60512902 Problem Chronic pain due to trauma G89.21 Active 764468753 Problem Acute stress disorder F43.0 Active 88427603 ALLERGIES Substance Reaction Event Type Date Status Macrobid rash Drug Allergy Jun, Active Cipro hives Drug Allergy Jun, Active Baclofen Unknown Drug Allergy Jun, Active Amitriptyline HCl dizziness Drug Allergy Jun, Active Peanut Unknown Non Drug Allergy Jun, Active SOCIAL HISTORY Never Assessed PLAN OF CARE Activity Details Follow Up Dr. Garcia or russ nava Reason: VITAL SIGNS Height 62 in 2016-06-30 Weight 176.6 lbs 2016-06-30 Temperature 97.7 degrees Fahrenheit 2016-06-30 Heart Rate 84 bpm 2016-06-30 Respiratory Rate 20 2016-06-30 BMI 32.30 kg/m2 2016-06-30 Blood pressure systolic 124 mmHg 2016-06-30 Blood pressure diastolic 78 mmHg 2016-06-30 MEDICATIONS Medication Instructions Dosage Frequency Start Date End Date Duration Status Triamterene-HCTZ 37.5-25 MG Orally Once a day 1 tablet in the morning 24h Active Meclizine HCl 25 MG Orally Once a day 1 tablet as needed 24h Active Amlodipine Besylate 5 mg Orally Once a day 1 tablet 24h Active Ibuprofen 800 MG Orally PRN for pain 1 tablet as needed Active Pravastatin Sodium 20 mg TAKE ONE TABLET BY MOUTH AT BEDTIME 30 Active Flonase Allergy Relief 50 MCG/ACT Nasally Once a day 1 spray in each nostril 24h May, 30 day(s) Active Hydrocodone-Acetaminophen 5-325 MG Orally 3 -4 times a day prn. must last 4 weeks 1 tablet as needed Active Fish Oil 1000 MG Orally Once a day 1 capsule 24h Active Cyclobenzaprine HCl 10 mg orally tid prn 1 tablet Active Klor-Con 10 10 MEQ Orally Once a day 2 tablet with food 24h Active RESULTS No Results PROCEDURES No Known procedures IMMUNIZATIONS No Known Immunizations MEDICAL (GENERAL) HISTORY Type Description Date Medical History hypertension Medical History Colposcopy with loop electrode excision of the cervix was performed 06/2012, mild squamous atypia (no definite dyplasia). Performed at [facility] Dr. Joy. Medical History Acute suppurative otitis [...]
--- OUTSIDE RECORDS SUMMARY | 2018-06-10 05:19 | XMS REPORT ---
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 Active 210846768054 Problem Anxiety F41.9 Active 02913291 Problem Acute cystitis without hematuria N30.00 Active 78031987 Problem Abnormal MRI, shoulder R93.8 Active 048003542 Problem Abnormal fasting glucose R73.09 Active 687989891 Problem Hypokalemia E87.6 Active 36428848 Problem Chronic pain due to 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 Active 543801419 Problem Acute stress disorder F43.0 Active 08520065 ALLERGIES Substance Reaction Event Type Date Status Macrobid rash Drug Allergy May, Active Cipro hives Drug Allergy May, Active Amitriptyline HCl dizziness Drug Allergy May, Active Peanut Unknown Non Drug Allergy May, Active SOCIAL HISTORY Never Assessed PLAN OF CARE Activity Details Follow Up if not improving or reg follow up Reason: VITAL SIGNS Height 62 in 2016-06-01 Weight 173.9 lbs 2016-06-01 Temperature 99.9 degrees Fahrenheit 2016-06-01 Heart Rate 88 bpm 2016-06-01 Respiratory Rate 20 2016-06-01 BMI 31.80 kg/m2 2016-06-01 Blood pressure systolic 130 mmHg 2016-06-01 Blood pressure diastolic 82 mmHg 2016-06-01 MEDICATIONS Medication Instructions Dosage Frequency Start Date End Date Duration Status Flonase Allergy Relief 50 MCG/ACT Nasally Once a day 1 spray in each nostril 24h May, 30 day(s) Active Amlodipine Besylate 5 mg Orally Once a day 1 tablet 24h Active Meclizine HCl 25 MG Orally Once a day 1 tablet as needed 24h Active Pravastatin Sodium 20 mg TAKE ONE TABLET BY MOUTH AT BEDTIME 30 Active Triamterene-HCTZ 37.5-25 MG Orally Once a day 1 tablet in the morning 24h Active Hydrocodone-Acetaminophen 5-325 MG Orally 3 -4 times a day prn. must last 4 weeks 1 tablet as needed Active Klor-Con 10 10 MEQ Orally Once a day 2 tablet with food 24h Active Azithromycin 250 MG Orally Once a day 2 tablets on the first day, then 1 tablet daily for 4 days 24h May, May, 5 day(s) Active Cyclobenzaprine HCl 10 mg orally tid prn 1 tablet Active Fish Oil 1000 MG Orally Once a day 1 capsule 24h Active RESULTS No Results PROCEDURES Procedure Date Ordered Result Body Site ROCEPHIN 1 GM (IM) Jun 01, 2016 THER/PROPH/DIAG INJ, SC/IM Jun 01, 2016 IMMUNIZATIONS Vaccine Route Administration Date Status ROCEPHIN 1 GM (IM) IM Intramuscular Jun 01, 2016 Administered MEDICAL (GENERAL) HISTORY Type Description Date Medical History hypertension Medical History Colposcopy with loop electrode excision of the cervix was performed 06/2012, mild squamous atypia (no definite dyplasia). Performed at [facility] Dr. Joy. Medical History Acute suppurative [...]
--- OUTSIDE RECORDS SUMMARY | 2018-06-10 05:19 | XMS REPORT ---
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 Active 579466096073 Problem Anxiety F41.9 Active 63325548 Problem Acute cystitis without hematuria N30.00 Active 17759893 Problem Abnormal MRI, shoulder R93.8 Active 048930402 Problem Abnormal fasting glucose R73.09 Active 028447648 Problem Hypokalemia E87.6 Active 87135060 Problem Chronic pain due to trauma G89.21 Active 227883168 Problem Acute stress disorder F43.0 Active 87416607 ALLERGIES No Information SOCIAL HISTORY Never Assessed PLAN OF CARE VITAL SIGNS MEDICATIONS Medication Instructions Dosage Frequency Start Date End Date Duration Status Baclofen 10 mg Orally Three times a day 1 tablet with food or milk 8h Jun, Active RESULTS No Results PROCEDURES No Known procedures IMMUNIZATIONS No Known Immunizations MEDICAL (GENERAL) HISTORY Type Description Date Medical History hypertension Medical History Colposcopy with loop electrode excision of the cervix was performed 06/2012, mild squamous atypia (no definite dyplasia). Performed at [facility] Dr. Joy. Medical History Acute suppurative [...]
--- OUTSIDE RECORDS SUMMARY | 2018-06-10 05:19 | XMS REPORT ---
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 Active 274406712192 Problem Anxiety F41.9 Active 88037715 Problem Acute cystitis without hematuria N30.00 Active 98986907 Problem Abnormal MRI, shoulder R93.8 Active 313487558 Problem Abnormal fasting glucose R73.09 Active 244888209 Problem Hypokalemia E87.6 Active 96917560 Problem 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
--- OUTSIDE RECORDS SUMMARY | 2018-06-10 05:20 | XMS REPORT ---
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 Active 309125790814 Problem Anxiety F41.9 Active 73330507 Problem Acute cystitis without hematuria N30.00 Active 42195938 Problem Abnormal MRI, shoulder R93.8 Active 714716831 Problem Abnormal fasting glucose R73.09 Active 499977666 Problem Hypokalemia E87.6 Active 73132083 Problem 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 Active 768010332 Problem Acute stress disorder F43.0 Active 92797847 ALLERGIES Substance Reaction Event Type Date Status Macrobid rash Drug Allergy August, Active Cipro hives Drug Allergy August, Active Baclofen Unknown Drug Allergy August, Active Amitriptyline HCl dizziness Drug Allergy August, Active Peanut Unknown Non Drug Allergy August, Active SOCIAL HISTORY Never Assessed PLAN OF CARE Activity Details Follow Up 1 Year, sooner prn Reason: VITAL SIGNS Height 62 in 2016-08-16 Weight 174.0 lbs 2016-08-16 Temperature 98.0 degrees Fahrenheit 2016-08-16 BMI 31.82 kg/m2 2016-08-16 Blood pressure systolic 130 mmHg 2016-08-16 Blood pressure diastolic 82 mmHg 2016-08-16 MEDICATIONS Medication Instructions Dosage Frequency Start Date End Date Duration Status Pravastatin Sodium 20 mg TAKE ONE TABLET BY MOUTH AT BEDTIME 30 Active Fish Oil 1000 MG Orally Once a day 1 capsule 24h Active Cyclobenzaprine HCl 10 mg orally tid prn 1 tablet Active Amoxicillin 875 MG Orally every 12 hrs 1 tablet 12h August, August, 07 days Active Ibuprofen 800 MG Orally PRN for pain 1 tablet as needed Active Triamterene-HCTZ 37.5-25 MG Orally Once a day 1 tablet in the morning 24h Active Amlodipine Besylate 5 mg Orally Once a day 1 tablet 24h Active Klor-Con 10 10 MEQ Orally Once a day 2 tablet with food 24h Active Gabapentin 100 mg Orally in the evening 1 capsule Jul, 14 days Active Meclizine HCl 25 MG Orally Once a day 1 tablet as needed 24h Active Hydrocodone-Acetaminophen 5-325 MG Orally 3 -4 times a day prn. must last 4 weeks 1 tablet as needed 28 days Active Flonase Allergy Relief 50 MCG/ACT Nasally Once a day 1 spray in each nostril 24h May, 30 day(s) Active RESULTS Name Result Date Reference Range TRICHOMONAS (IN HOUSE) 2016-08-16 TRICHOMONAS negative Control + Lot # [id number] Exp date 02/2017 BACTERIAL VAGINOSIS (IN HOUSE) 2016-08-16 RESULTS negative Control + Lot # [id number] Exp date 02/2018 CULTURE, GENITAL 2016-08-16 Genital Culture, Routine Final report Result 1 PDF Report 2016-08-16 PDF Report1 LCLS GC/CHLAM PROBE (STATE) 2016-08-16 CHLAMYDIA negative GC negative PAP TEST W/ HPV REGARDLESS 2016-08-16 DIAGNOSIS: Specimen adequacy: Clinician provided ICD10: Performed by: . . Note: HPV, high-risk Negative Negative Mammogram, Bilateral Screening 2016-09-02 PROCEDURES Procedure Date Ordered Result Body Site SPECIMEN HANDLING August 16, 2016 AGUILAR VAG, DNA, DIR PROBE August 16, 2016 CULTURE, BACTERIA, OTHER August 16, 2016 TRICHOMONAS ASSAY W/OPTIC August 16, 2016 No Charge August 16, 2016 IMMUNIZATIONS No Known Immunizations MEDICAL (GENERAL) HISTORY Type Description Date Medical History hypertension Medical History Colposcopy with loop electrode excision of the cervix was performed 06/2012, mild squamous atypia (no definite dyplasia). Performed at [facility] Dr. Joy. Medical History Acute [...]
--- OUTSIDE RECORDS SUMMARY | 2018-06-10 05:20 | XMS REPORT ---
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 Active 835631515964 Problem Essential hypertension I10 Active 13514059 Problem Mixed hyperlipidemia E78.2 Active 99868527 Problem Abnormal ultrasound of uterus R93.5 Active 068920699 Problem Abnormal mammogram R92.8 Active 967779854 Problem Anxiety F41.9 Active 64195876 Problem Neck pain M54.2 Active 31784750 Problem Abnormal MRI, shoulder R93.8 Active 498177545 Problem Acute cystitis without hematuria N30.00 Active 97317123 Problem Abnormal fasting glucose R73.09 Active 879884611 Problem Hypokalemia E87.6 Active 03588574 Problem 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 4 weeks Reason:pain management VITAL SIGNS Height 62 in 2016-04-05 Weight 178.9 lbs 2016-04-05 Temperature 97.9 degrees Fahrenheit 2016-04-05 Heart Rate 72 bpm 2016-04-05 Respiratory Rate 20 2016-04-05 BMI 32.72 kg/m2 2016-04-05 Blood pressure systolic 126 mmHg 2016-04-05 Blood pressure diastolic 78 mmHg 2016-04-05 MEDICATIONS Medication Instructions Dosage Frequency Start Date End Date Duration Status Nystatin 697023 UNIT/ML Mouth/Throat every 8 hrs 5 ml 8h Mar, Apr, 07 days Active Cyclobenzaprine HCl 10 MG orally tid prn 1 tablet Active Fish Oil 1000 MG Orally Once a day 1 capsule 24h Active Klor-Con 10 10 MEQ Orally Once a day 2 tablet with food 24h Active Tramadol HCl 50 MG Orally every 6 hrs 1 tablet as needed 6h Active Pravastatin Sodium 20 MG TAKE ONE [...] as needed Active RESULTS No Results PROCEDURES Procedure Date Ordered Related Diagnosis Body Site Office Visit, Est Pt., Level 4 Apr 05, 2016 IMMUNIZATIONS No Known Immunizations
--- OUTSIDE RECORDS SUMMARY | 2018-06-10 05:20 | XMS REPORT ---
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 Active 536154616123 Problem Anxiety F41.9 Active 09637918 Problem Acute cystitis without hematuria N30.00 Active 54519461 Problem Abnormal MRI, shoulder R93.8 Active 255737834 Problem Abnormal fasting glucose R73.09 Active 615114958 Problem Hypokalemia E87.6 Active 89265179 Problem 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 Performed at [facility] Dr. Joy. Medical History Acute suppurative otitis [...]
--- OUTSIDE RECORDS SUMMARY | 2018-06-10 05:21 | XMS REPORT ---
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 Active 610420631066 Problem Anxiety F41.9 Active 32173032 Problem Acute cystitis without hematuria N30.00 Active 01284584 Problem Abnormal MRI, shoulder R93.8 Active 972145084 Problem Abnormal fasting glucose R73.09 Active 404479325 Problem Hypokalemia E87.6 Active 95093057 Problem 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 Active 314440208 Problem Acute stress disorder F43.0 Active 08096780 ALLERGIES Substance Reaction Event Type Date Status Macrobid rash Drug Allergy Apr, Active Cipro hives Drug Allergy Apr, Active Amitriptyline HCl dizziness Drug Allergy Apr, Active Peanut Unknown Non Drug Allergy Apr, Active SOCIAL HISTORY No smoking Hx information available PLAN OF CARE Activity Details Follow Up 3 Months Reason:pain BP VITAL SIGNS Height 62 in 2016-05-03 Weight 176 lbs 2016-05-03 Temperature 98.1 degrees Fahrenheit 2016-05-03 Heart Rate 80 bpm 2016-05-03 Respiratory Rate 18 2016-05-03 BMI 32.19 kg/m2 2016-05-03 Blood pressure systolic 131 mmHg 2016-05-03 Blood pressure diastolic 79 mmHg 2016-05-03 MEDICATIONS Medication Instructions Dosage Frequency Start Date End Date Duration Status Triamterene-HCTZ 37.5-25 MG Orally Once a day 1 tablet in the morning 24h Active Klor-Con 10 10 MEQ Orally Once a day 2 tablet with food 24h Active Cyclobenzaprine HCl 10 MG TAKE ONE TABLET BY MOUTH THREE TIMES DAILY NEEDED 30 Active Amlodipine Besylate 5 mg Orally [...] weeks 1 tablet as needed Active RESULTS Name Result Date Reference Range TSH 2016-05-03 TSH 0.593 0.450-4.500 LIPID PANEL 2016-05-03 Cholesterol, Total 196 100-199 Triglycerides 57 0-149 HDL Cholesterol 88 >39 VLDL Cholesterol Kailash 11 5-40 LDL Cholesterol Calc 97 0-99 Comment: CMP 2016-05-03 Glucose, Serum 89 65-99 BUN 11 6-24 Creatinine, Serum 0.69 0.57-1.00 eGFR If NonAfricn Am 96 >59 eGFR If Africn Am 110 >59 BUN/Creatinine Ratio 16 9-23 Sodium, Serum 142 134-144 Potassium, Serum 4.2 3.5-5.2 Chloride, Serum 99 96-106 Carbon Dioxide, Total 26 18-29 Calcium, Serum 9.9 8.7-10.2 Protein, Total, Serum 7.0 6.0-8.5 Albumin, Serum 4.6 3.5-5.5 Globulin, Total 2.4 1.5-4.5 A/G Ratio 1.9 1.1-2.5 Bilirubin, Total 0.3 0.0-1.2 Alkaline Phosphatase, S 94 39-117 AST (SGOT) 15 0-40 ALT (SGPT) 12 0-32 PROCEDURES Procedure Date Ordered Related Diagnosis Body Site COMPREHEN METABOLIC PANEL May 03, 2016 ASSAY THYROID STIM HORMONE May 03, 2016 LIPID PANEL May 03, 2016 Office Visit, Est Pt., Level 4 May 03, 2016 VENIPUNCT, ROUTINE* May 03, 2016 IMMUNIZATIONS No Known Immunizations
--- OUTSIDE RECORDS SUMMARY | 2018-06-10 05:21 | XMS REPORT ---
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 Performed at [facility] Dr. Joy. Medical History Acute [...]
--- OUTSIDE RECORDS SUMMARY | 2018-06-10 05:23 | XMS REPORT ---
Author Author SIMA HODGES [facility] Address [address] [place] [address] Care Team Providers [employer] Name Role Phone SIMA HODGES Unavailable PROBLEMS Type Condition ICD9-CM Code OTP37-RN Code Onset Dates Condition Status SNOMED Code Problem Anxiety F41.9 Active 09619636 Problem Abnormal glucose R73.09 Active 347198269 Problem Chronic pain due to trauma G89.21 Active 680237344 Problem Hypokalemia E87.6 Active 53186363 Problem Neck pain M54.2 Active 30806879 Problem Neuroforaminal stenosis of spine M99.89 Active 594837974805 Problem Mixed hyperlipidemia E78.2 Active 69070671 Problem Essential hypertension I10 Active [id number] ALLERGIES No Information ENCOUNTERS Encounter Location Date Diagnosis [place] [id number] [address]- [address] August, [facility] [address] 02910- 9606 August, [facility] [address] [place] [id number] [place] [address] 56358- 3835 August, Neuroforaminal stenosis of spine M99.89 [facility] [address] [place] [id number] [place] [address] 69137- 5619 August, Essential hypertension I10 ; Hypokalemia E87.6 and Mixed hyperlipidemia E78.2 [facility] [address] 46684- 7451 Jul, [facility] [address] [place] [id number] [place] [address] 37556- 2043 Jul, Neuroforaminal stenosis of spine M99.89 [facility] [address] [place] [id number] [place] [address] 2181 Jul, Lateral epicondylitis, right elbow M77.11 [facility] [address] 70664- 3894 Jul, [facility] [address] [place] [id number] [place] [address] 19806- 9501 Jun, High ankle sprain of right lower extremity, initial encounter S93.431A [place] [address] 0[address]14- 0030 Jun, Essential hypertension I10 [place] [address] 88140- 6746 Jun, [place] [address] [place] [id number] [place] [address] 74606- 6188 Jun, [place] [address] 97736- 0667 Jun, Neuroforaminal stenosis of spine M99.89 [place] [address] [place] [id number] [place] [address] 71418- 0625 Jun, Pain of right upper extremity M79.601 and Essential hypertension I10 [place] [address] [place] [id number] [place] [address] 56920- 5598 Jun, [place] [address] [place] [id number] [place] [address] 10967- 0010 Jun, Dysuria R30.0 ; Acute cystitis with hematuria N30.01 and Screen for STD (sexually transmitted disease) Z11.3 [place] [address] [place] [id number] [place] [address] 99678- 5272 May, Chronic pain due to trauma G89.21 [place] [address] [place] [id number] [place] [address] 02856- 0103 May, Essential hypertension I10 [place] [address] 97171- 7957 May, Neuroforaminal stenosis of spine M99.89 [place] [address] [place] [id number] [place] [address] 14052- 3174 Apr, Allergic reaction, initial encounter T78.40XA [place] [address] [place] [id number] [place] [address] 51070- 0742 Apr, Low back pain, unspecified back pain laterality, unspecified chronicity, with sciatica presence unspecified M54.5 ; Acute cystitis with hematuria N30.01 ; Neuroforaminal stenosis of spine M99.89 ; Bilateral acute serous otitis media, recurrence not specified H65.03 ; Mixed hyperlipidemia E78.2 ; Essential hypertension I10 ; Immunization counseling Z71.89 and Encounter for immunization Z23 [place] [address] [place] [id number] [place] [address] 61626- 4872 Apr, Neck pain M54.2 [place] [address] 79370- 0400 Mar, Neuroforaminal stenosis of spine M99.89 [place] [address] [place] [id number] [place] [address] 81801- 8477 Mar, Pharyngitis due to other organism J02.8 [place] [address] [place] [id number] [place] [address] 78856- 5074 Feb, Neuroforaminal stenosis of spine M99.89 [place] [address] [place] [id number] [place] [address] 05022- 4234 08 Feb, 2017 UTI (urinary tract infection) N39.0 [place] [address] [place] [id number] [place] [address] 11139- 7516 07 Feb, 2017 Recent urinary tract infection Z87.440 ; Neuroforaminal stenosis of spine M99.89 ; Neck pain M54.2 ; Chronic pain due to trauma G89.21 and Recurrent UTI N39.0 [place] [address] [place] [id number] [place] [address] 97790- 1463 Feb, [place] [address] [place] [id number] [place] [address] 30558- 7884 Jan, Neuroforaminal stenosis of spine M99.89 [place] [address] [place] [id number] [place] [address] 27771- 3733 28 Dec, 2016 Neuroforaminal stenosis of spine M99.89 [place] [address] [place] [id number] [place] [address] 25172- 3171 18 Dec, 2016 Acute seasonal allergic rhinitis due to pollen J30.1 [place] [address] [place] [id number] [place] [address] 56133- 3826 08 Dec, 2016 [place] [address] 11471- 0384 08 Dec, 2016 Acute seasonal allergic rhinitis, unspecified trigger J30.2 ; Allergic conjunctivitis of both eyes H10.13 and Dysfunction of both eustachian tubes H69.83 [place] [address] [place] [id number] [place] [address] 58993- 6672 07 Dec, 2016 [place] [address] [place] [id number] [place] [address] 25592- 7586 Dec, Nevus D22.9 [place] [address] [place] [id number] [place] [address] 26405- 3542 Nov, Chronic pain due to trauma G89.21 and Neuroforaminal stenosis of spine M99.89 [place] [address] [place] [id number] [place] [address] 71292- 8068 Nov, Neuroforaminal stenosis of spine M99.89 ; Essential hypertension I10 ; Mixed hyperlipidemia E78.2 ; Hypokalemia E87.6 ; Neck pain M54.2 and Nevus D22.9 [place] [address] [place] [id number] [place] [address] 22978- 1387 Oct, Neuroforaminal stenosis of spine M99.89 [place] [address] [place] [id number] [place] [address] 03354- 7705 Sep, Neuroforaminal stenosis of spine M99.89 [facility] [address] [facility] [id number] [address]- 7496 Sep, [facility] [address] [facility] [id number] [place] [address] 10375- 5046 August, [facility] [address] [facility] [id number] [place] [address] 15371- 6876 August, Neck pain M54.2 and Neuroforaminal stenosis of spine M99.89 [facility] [address] [facility] [id number] [place] [address] 20176- 2395 August, Routine gynecological examination Z01.419 and Screening breast examination Z12.39 [facility] [address] [facility] [id number] [place] [address] 27568- 7998 Jul, [facility] [address] [place] [id number] [place] [address] 76551- 6003 Jul, [facility] [address] [place] [id number] [place] [address] 54377- 1321 Jul, Neuroforaminal stenosis of spine M99.89 [facility] [address] [place] [id number] [place] [address] 72983- 6895 Jul, [facility] [address] [place] [id number] [place] [address] 01652- 0010 Jul, 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 [facility] [address] [facility] [id number] [address]- 0379 Jul, [facility] [address] [facility] [id number] [address] 2546 Jul, [facility] [address] [facility] [id number] [place] [address] 81295- 2546 Jun, Neuroforaminal stenosis of spine M99.89 [facility] [address] [facility] [id number] [address]- 8946 Jun, Uterine leiomyoma, unspecified location D25.9 and Allergic reaction caused by a drug, initial encounter T78.40XA [place] [address] [place] [id number] [place] [address] 16428- 7614 Jun, [place] [address] [place] [id number] [place] [address] 53261- 0034 May, UTI symptoms R39.9 and Pain of right sacroiliac joint M53.3 [place] [address] 15979- 1045 May, Neuroforaminal stenosis of spine M99.[address] 89935- 2660 May, [address] 49497- 4892 May, Acute mucoid otitis media of left ear H65.112 and Acute non- recurrent maxillary sinusitis J01.00 [place] [address] [place] [id number] [place] [address] 86119- 0829 May, Acute bacterial conjunctivitis of both eyes H10.33 ; Left arm pain M79.602 and Hypokalemia E87.6 [place] [address] [place] [id number] [place] [address] 03119- 1597 Apr, [place] [address] [place] [id number] [place] [address] 26635- 2881 Apr, Neuroforaminal stenosis of spine M99.89 ; Neck pain M54.2 ; Chronic pain due to trauma G89.21 ; Mixed hyperlipidemia E78.2 ; Essential hypertension I10 and Hypokalemia E87.[address] 95301- 3814 Mar, Oral candidiasis B37.0 ; Neuroforaminal stenosis of spine M99.89 ; Neck pain M54.2 and Chronic pain due to trauma G89.21 [place] [address] [place] [id number] [place] [address] 11367- 0960 Feb, [facility] [id number] [place] [address] 93991- 6505 Feb, [facility] [address] [place] [id number] [place] [address] 58122- 8534 Feb, UTI (urinary tract infection) N39.0 [facility] [address] [place] [id number] [place] [address] 14411- 7186 Feb, Dysuria R30.0 [facility] [id number] [place] [address] 41282- 9955 Feb, Dysuria R30.0 [facility] [address] [place] [id number] [place] [address] 31024- 1036 Feb, Neuroforaminal stenosis of spine M99.89 ; Neck pain M54.2 ; Essential hypertension I10 ; Chronic pain due to trauma G89.21 ; Dysuria R30.0 ; Abnormal MRI, shoulder R93.8 and Acute cystitis without hematuria N30.00 [facility] [id number] [place] [address] 24056- 7218 Jan, [facility] [address] [place] [id number] [place] [address] 22373- 4659 Jan, [facility] [address] [place] [id number] [place] [address] 93840- 0769 Jan, [facility] [address] [place] [id number] [place] [address] 41108- 0160 Jan, Abnormal MRI R93.8 [facility] [id number] [place] [address] 04309- 9872 Dec, [facility] [id number] [place] [address] 32590 -5702 Dec, Acute pain of left shoulder M25.512 [facility] [address] [place] [id number] [place] [address] 40272- 3283 Dec, [facility] [address] [address]- 8952 08 Dec, 2015 [facility] [address] [place] [id number] [place] [address] 19614- 2484 07 Dec, 2015 Acute pain of left shoulder M25.512 [facility] [address] [id number] [address]- 5267 Nov, [facility] [address] [place] [id number] [place] [address] 63763- 9569 Nov, Neuroforaminal stenosis of spine M99.89 ; Neck pain M54.2 ; Abnormal mammogram R92.8 ; Essential hypertension I10 and Chronic pain due to trauma G89.21 [facility] [id number] [place] [address] 53782- 2172 Nov, [facility] [address] [place] [id number] [place] [address] 45435- 2772 Oct, Acute stress disorder F43.0 [facility] [address] [place] [id number] [place] [address] 16882- 6061 Oct, [facility] [address] [place] [id number] [place] [address] 60085- 5833 Oct, [facility] [address] [address]- 0431 Oct, [facility] [id number] [place] [address] 06685- 3672 Sep, [facility] [address] [address]- 3753 August, [facility] [id number] [place] [address] 39707- 7894 Jul, Neuroforaminal stenosis of spine M99.89 ; Neck pain M54.2 ; Abnormal mammogram R92.8 and Essential hypertension I10 [facility] [address] [address]- 1114 Jul, [place] [address] [address]- 8224 Jul, [facility] [address] [place] [id number] [place] [address] 11968- 9966 Jul, Abnormal mammogram R92.8 [facility] [id number] [place] [address] 09897 2548 Jul, [facility] [address] [place] [id number] [place] [address] 25359 2541 Jul, UTI (urinary tract infection) N39.0 [facility] [address] [place] [id number] [place] [address] 37410- 9184 Jul, Dysuria R30.0 [facility] [address] [place] [id number] [place] [address] 66842- 9266 Jun, [facility] [address] [place] [id number] [place] [address] 95315- 4076 Jun, [facility] [id number] [place] [address] 75645 254 Jun, Hypokalemia E87.6 and Hematuria R31.9 [facility] [id number] [place] [address] 59233 2549 Jun, Hypokalemia E87.6 [facility] [address] [address] 2546 Jun, [facility] [id number] [place] [address] 32040 2546 18 Jun, 2015 Hypokalemia E87.6 [facility] [id number] [place] [address] 37088 2546 18 Jun, 2015 Hypokalemia E87.6 [facility] [address] [address] 2546 15 Jun, 2015 Neuroforaminal stenosis of spine M99.89 ; Hypokalemia E87.6 ; Neck pain M54.2 ; Essential hypertension I10 ; Mixed hyperlipidemia E78.2 and Screening breast examination Z12.39 [facility] [address] [place] [id number] [place] [address] 60815- 2018 Jun, Dysuria R30.0 ; UTI (urinary tract infection) N39.0 and Hematuria R31.9 [place] [address] 97477- 0910 May, [facility] [address] 06060- 1611 May, High risk sexual behavior Z72.51 ; Hypokalemia E87.6 ; Neuroforaminal stenosis of spine M99.89 ; Neck pain M54.2 ; Essential hypertension I10 ; Mixed hyperlipidemia E78.2 ; STD exposure Z20.2 and Concern about STD in female without diagnosis Z71.1 [place] [address] 63094- 8792 16 May, 2015 Neuroforaminal stenosis of spine M99.89 ; Neck pain M54.2 ; Hypokalemia E87.6 ; Essential hypertension I10 and Mixed hyperlipidemia E78.2 [place] [address] 26876- 6644 May, [facility] [address] [place] [id number] [place] [address] 31015 -6264 May, High risk sexual behavior Z72.51 ; STD exposure Z20.2 and Concern about STD in female without diagnosis Z71.1 [place] [address] [place] [id number] [place] [address] 13489- 3632 May, [facility] [address] 78855- 8534 Apr, Neuroforaminal stenosis of spine M99.89 ; Mixed hyperlipidemia E78.2 ; Essential hypertension I10 and Hypokalemia E87.6 [place] [address] 04677- 8978 Mar, [place] [address] [place] [id number] [place] [address] 33968- 4994 Mar, Hypokalemia E87.6 [place] [address] [place] [id number] [place] [address] 37732- 8774 Mar, Neuroforaminal stenosis of spine M99.89 ; Mixed hyperlipidemia E78.2 ; Neck pain M54.2 ; Essential hypertension I10 ; Abnormal fasting glucose R73.09 ; Hypokalemia E87.6 and Constipation K59.00 [place] [address] [place] [id number] [place] [address] 88397- 5750 Feb, Neuroforaminal stenosis of spine M99.89 ; Mixed hyperlipidemia E78.2 ; Neck pain M54.2 ; Essential hypertension I10 ; Abnormal fasting glucose R73.09 ; Hypokalemia E87.6 and Constipation K59.00 [place] [address] [place] [id number] [place] [address] 47280- 6826 Feb, Elevated fasting blood sugar R73.01 [place] [address] [place] [id number] [place] [address] 70761- 4898 Feb, Elevated fasting blood sugar R73.01 [place] [address] [place] [id number] [place] [address] 11613- 3719 Feb, Hair loss L65.9 [place] [address] [place] [id number] [place] [address] 16807- 7215 Feb, Sinusitis J32.9 ; Essential hypertension I10 and Hair loss L65.9 [place] [address] [place] [id number] [place] [address] 82742- 4665 Jan, [place] [address] 64429- 0644 Jan, Essential hypertension I10 ; Neuroforaminal stenosis of spine M99.89 ; Neck pain M54.2 ; Mixed hyperlipidemia E78.2 and Anxiety F41.9 [place] [address] [place] [id number] [place] [address] 2546 Jan, [facility] [id number] [place] [address] 31835- 6154 Jan, Mixed hyperlipidemia E78.2 ; Essential (primary) hypertension I10 ; Strain of muscle, fascia and tendon at neck level, subsequent encounter S16.1XXD and Tension-type headache, unspecified, not intractable G44.209 [place] [address] [place] [id number] [place] [address] 92556- 8106 Dec, Lumbar back pain 724.2 and Neuroforaminal stenosis of spine 724.00 [place] [address] [place] [id number] [place] [address] 37247- 0482 Nov, [place] [id number] [place] [address] 91517- 6391 Nov, Lumbar back pain 724.2 and Neuroforaminal stenosis of spine 724.00 [place] [address] [place] [id number] [place] [address] 36093- 3885 Nov, Edema 782.3 ; Lumbar back pain 724.2 ; Essential hypertension, benign 401.1 ; Hyperlipemia 272.4 ; Neuroforaminal stenosis of spine 724.00 and Post-concussion headache 339.20 [place] [address] [place] [address] 11935- 9960 Nov, [place] [address] [address]- 2791 Nov, [place] [address] [place] [address] 49980- 9229 Oct, Essential hypertension, benign 401.1 [place] [address] [place] [address] 41534- 4127 Oct, Edema 782.3 ; Lumbar back pain 724.2 ; Essential hypertension, benign 401.1 ; Hyperlipemia 272.4 ; Neuroforaminal stenosis of spine 724.00 and Post-concussion headache 339.20 [place] [address] [address]- 8608 Oct, [facility] [address] [address]- 6882 Oct, Edema 782.3 [facility] [id number] [place] [address] 05895- 9270 Oct, Lumbar back pain 724.2 [facility] [address] [place] [id number] [place] [address] 76387- 5651 Oct, Cervicalgia 723.1 ; Lumbar back pain 724.2 and High risk medication use V58.69 [facility] [address] [place] [id number] [place] [address] 98926- 4036 Sep, [facility] [address] [place] [id number] [place] [address] 36552- 3247 Sep, Lumbar strain 847.2 [facility] [address] [place] [id number] [place] [address] 65943- 8964 August, Edema 782.3 and Eustachian tube dysfunction 381.81 [facility] [address] [place] [address] 25795- 8781 August, [facility] [address] [place] [address] 90524- 7591 August, Eustachian tube dysfunction 381.81 [facility] [address] [address]- 3808 Jul, Otalgia 388.70 and Otitis media 382.9 [facility] [address] [address]- 8665 Jul, [facility] [address] [place] [id number] [place] [address] 10227- 8315 Jul, [facility] [address] [address]- 1041 Jul, [facility] [address] [place] [id number] [place] [address], [place] [address]- 5004 14 Jul, 2014 [facility] [place] [facility] [address] [id number] [place] [address]- 7034 13 Jul, 2014 [facility] [place] [facility] [address] [id number] [place] [address]- 7609 27 Jun, 2014 [facility] [place] [facility] [address] [id number] [place] [address]- 4188 27 Jun, 2014 [facility] [place] [facility] [address] [id number] [place] [address]- 0678 16 Jun, 2014 [facility] [place] [facility] [address] [id number] [place] [address]- 6209 May, 2014 [facility] [place] [facility] [address] [facility] [id number] [place] [address]- 6064 May, 2014 [facility] [place] [facility] [address] [facility] [id number] [place] [address]- 6249 May, 2014 [facility] [place] [facility] [address] [facility] [id number] [place] [address]- 0048 May, 2014 [facility] [place] [facility] [address] [facility] [id number] [place] [address]- 8769 May, 2014 [facility] [place] [facility] [address] [facility] [id number] [place] [address] May, 2014 [facility] [place] [facility] [address] [facility] [id number] [place] [address] May, 2014 [facility] [place] [facility] [address] [id number] [place] [address] May, 2014 [facility] [place] [facility] [address] [id number] [id number] [address] May, 2014 [facility] [place] [facility] [address] [facility] [id number] [place] [address] May, 2014 [facility] [place] [facility] [address] [facility] [id number] [place] [address] Apr, [facility] [place] [facility] [address] [id number] [place] [address] Apr, [facility] [place] [facility] [address] [id number] [place] [address] Apr, [facility] [place] [facility] [address] [id number] [place] [address] Apr, [facility] [place] [facility] [address] [id number] [place] [address] Apr, [facility] [place] [facility] [address] [id number] [place] [address] Apr, [facility] [place] [facility] [address] [id number] [place] [address] Apr, [facility] [place] [facility] [address] [id number] [place] [address] Apr, [facility] [place] [facility] [address] [id number] [place] [address] Apr, [facility] [place] [facility] [address] [id number] [place] [address] Apr, [facility] [place] [facility] [address] [id number] [place] [address] Apr, [facility] [place] [facility] [address] [id number] [address] Apr, [facility] [place] [facility] [address] [id number] [address] Apr, [facility] [place] [facility] [address] [id number] [place] [address] Apr, [facility] [place] [facility] [address] [id number] [place] [address] Apr, [facility] [place] [facility] [address] [id number] [place] [address] Mar, [facility] [place] [facility] [address] [id number] [place] [address] Mar, [facility] [place] [facility] [address] [id number] [place] [address] Mar, [facility] [place] [facility] [address] [id number] [id number] [address] Mar, [facility] [place] [facility] [address] [id number] [place] [address] Feb, [facility] [place] [facility] [address] [id number] [place] [address] Feb, [facility] [place] [facility] [address] [id number] [place] [address] Feb, [facility] [place] [facility] [address] [facility] [id number] [place] [address] Feb, [facility] [place] [facility] [address] [facility] [id number] [place] [address] 49[address] Jan, [facility] [place] [facility] [address] [id number] [place] [address] 7723 Jan, [facility] [place] [facility] [address] [facility] [id number] [place] [address]- 4661 Jan, [facility] [place] [facility] [address] [facility] [id number] [place] [address] 0063 Jan, [facility] [place] [facility] [address] [facility] [id number] [place] [address]- 6[address] Jan, [facility] [place] [facility] [address] [facility] [id number] [address] Jan, [facility] [place] [facility] [address] [id number] [place] [address] 6136 Jan, [facility] [place] [facility] [address] [facility] [id number] [place] [address] Jan, [facility] [place] [facility] [address] [id number] [place] [address]- 5178 Dec, [facility] [place] [facility] [address] [id number] [place] [address]- 5546 Dec, [facility] [place] [facility] [address] [id number] [place] [address]- 2256 Dec, [facility] [place] [facility] [address] [id number] [place] [address]- 8524 Dec, [facility] [place] [facility] [address] [id number] [place] [address]- 3878 Oct, [facility] [place] [facility] [address] [id number] [place] [address]- 6783 Oct, [facility] [place] [facility] [address] [id number] [place] [address]- 5810 Oct, [facility] [place] [facility] [address] [id number] [place] [address]- 2101 Oct, [facility] [place] [facility] [address] [id number] [place] [address]- 5230 Oct, [facility] [place] [facility] [address] [id number] [place] [address]- 3771 Oct, [facility] [place] [facility] [address] [id number] [place] [address]- 9385 Oct, [facility] [place] [facility] [address] [id number] [place] [address]- 6371 Oct, [facility] [place] [facility] [address] [id number] [place] [address]- 3436 Sep, [facility] [place] [facility] [address] [id number] [place] [address]- 8519 Sep, [facility] [place] [facility] [address] [id number] [place] [address]- 0528 Sep, [facility] [place] [facility] [address] [id number] [place] [address]- 7325 Sep, [facility] [place] [facility] [address] [id number] [place] [address]- 5348 Sep, [facility] [place] [facility] [address] [id number] [place] [address]- 0736 Sep, [facility] [place] [facility] [address] [id number] [place] [address]- 2110 Sep, [facility] [place] [facility] [address] [id number] [place] [address]- 0305 Sep, [facility] [place] [facility] [address] [id number] [place] [address]- 5840 Sep, [facility] [place] [facility] [address] [id number] [place] [address]- 6940 Sep, [facility] [place] [facility] [address] [id number] [place] [address]- 6791 August, [facility] [place] [facility] [address] [id number] [place] [address]- 3275 August, [facility] [place] [facility] [address] [id number] [place] [address]- 9089 August, [facility] [place] [facility] [address] [id number] [place] [address]- 9588 August, [facility] [place] [facility] [address] [id number] [place] [address]- 7214 August, [facility] [place] [facility] [address] [id number] [place] [address]- 8360 August, [facility] [place] [facility] [address] [id number] [place] [address]- 2357 August, [facility] [place] [facility] [address] [id number] [place] [address]- 0918 August, [facility] [place] [facility] [address] [id number] [place] [address]- 2420 August, [facility] [place] [facility] [address] [id number] [place] [address]- 9648 August, [facility] [place] [facility] [address] [id number] [place] [address]- 8311 August, [facility] [address] [id number] [place] [address]- 1995 August, [facility] [place] [facility] [address] [id number] [place] [address]- 3209 Jul, [facility] [place] [facility] [address] [id number] [place] [address]- 6847 Jul, [facility] [place] [facility] [address] [id number] [place] [address]- 5518 Jul, [facility] [place] [facility] [address] [id number] [place] [address]- 9079 Jul, [facility] [place] [facility] [address] [id number] [place] [address]- 9853 Jul, [facility] [place] [facility] [address] [id number] [place] [address]- 8753 Jul, [facility] [place] [facility] [address] [id number] [place] [address]- 2393 Jun, [facility] [place] [facility] [address] [id number] [place] [address] 1945 Jun, [facility] [place] [facility] [address] [id number] [place] [address]- 4694 May, [facility] [place] [facility] [address] [id number] [place] [address]- 7074 May, [facility] [place] [facility] [address] [id number] [place] [address]- 2874 Apr, [facility] [place] [facility] [address] [id number] [place] [address]- 5951 Apr, [facility] [place] [facility] [address] [id number] [place] [address]- 6992 Apr, [facility] [place] [facility] [address] [id number] [place] [address]- 4041 Apr, [facility] [address] [id number] [place] [address]- 2350 Apr, [facility] [place] [facility] [address] [id number] [place] [address]- 8889 Apr, [facility] [place] [facility] [address] [id number] [place] [address]- 8269 Apr, [facility] [place] [facility] [address] [id number] [place] [address]- 5306 Apr, [facility] [place] [facility] [address] [id number] [place] [address]- 5814 Apr, [facility] [place] [facility] [address] [id number] [place] [address]- 6272 Apr, [facility] [place] [facility] [address] [id number] [place] [address]- 5903 Apr, [facility] [place] [facility] [address] [id number] [place] [address]- 9938 Apr, [facility] [place] [facility] [address] [id number] [place] [address]- 6090 Apr, [facility] [place] [facility] [address] [id number] [address]- 1315 Mar, [facility] [place] [facility] [address] [id number] [place] [address]- 9496 Mar, [facility] [place] [facility] [address] [id number] [place] [address]- 1185 Mar, [facility] [place] [facility] [address] [id number] [place] [address]- 6927 Mar, [facility] [place] [facility] [address] [id number] [place] [address]- 9859 Feb, [facility] [place] [facility] [address] [id number] [place] [address]- 0398 Feb, [facility] [place] [facility] [address] [id number] [place] [address]- 4761 08 Feb, 2013 [facility] [place] [facility] [address] [id number] [place] [address]- 8655 08 Feb, 2013 [facility] [place] [facility] [address] [id number] [place] [address]- 4748 14 Jan, 2013 [facility] [place] [facility] [address] [id number] [place] [address]- 2650 14 Jan, 2013 [facility] [place] [facility] [address] [id number] [place] [address]- 8199 Jan, [facility] [place] [facility] [address] [id number] [place] [address]- 0154 11 Jan, 2013 [facility] [place] [facility] [address] [id number] [place] [address]- 6556 Jan, [facility] [place] [facility] [address] [id number] [place] [address]- 0149 10 Jan, 2013 [facility] [place] [facility] [address] [id number] [place] [address]- 5628 Jan, [facility] [place] [facility] [address] [id number] [place] [address]- 7382 Jan, [facility] [place] [facility] [address] [id number] [place] [address]- 5307 Jan, [facility] [place] [facility] [address] [id number] [place] [address]- 5192 26 Dec, 2012 [facility] [place] [facility] [address] [id number] [place] [address]- 2547 16 Dec, 2012 [facility] [place] [facility] [address] [id number] [place] [address]- 2945 16 Dec, 2012 [facility] [place] [facility] [address] [id number] [place] [address]- 6405 13 Dec, 2012 [facility] [place] [facility] [address] [id number] [place] [address]- 1201 17 Nov, 2012 [facility] [place] [facility] [address] [id number] [place] [address]- 6390 Nov, [facility] [address] [id number] [place] [address]- 6346 Nov, [facility] [address] [id number] [place] [address]- 6715 Nov, [facility] [address] [id number] [place] [address]- 1285 Oct, [facility] [address] [id number] [place] [address]- 5166 Sep, [facility] [address] [id number] [place] [address]- 4274 August, [facility] [address] [id number] [place] [address]- 3932 August, [facility] [address] [id number] [place] [address]- 0295 August, [facility] [address] [id number] [place] [address]- 6376 August, [facility] [address] [id number] [place] [address]- 4540 August, [facility] [address] [id number] [place] [address]- 6367 August, [facility] [address] [id number] [place] [address]- 2182 August, [facility] [address] [id number] [place] [address]- 6375 August, [facility] [address] [id number] [place] [address]- 3693 August, [facility] [address] [id number] [place] [address]- 3496 August, [facility] [address] [id number] [place] [address]- 8990 August, [facility] [address] [id number] [place] [address]- 2681 August, [facility] [address] [id number] [place] [address]- 3771 Jul, [facility] [address] [id number] [place] [address]- 2233 Jul, [facility] [address] [id number] [place] [address]- 4905 Jul, [facility] [address] [id number] [place] [address]- 9994 Jul, [facility] [address] [id number] [place] [address]- 2953 Jul, [facility] [address] [id number] [place] [address]- 9346 Jul, [facility] [address] [id number] [place] [address]- 3630 Jul, [facility] [address] [id number] [place] [address]- 9876 Jul, [facility] [place] [facility] [address] [id number] [place] [address]- 7366 Jul, [facility] [address] [id number] [place] [address]- 9758 Jul, [facility] [place] [facility] [address] [id number] [place] [address]- 0319 Jul, [facility] [place] [facility] [address] [id number] [place] [address]- 5838 Jun, [facility] [place] [facility] [address] [id number] [place] [address]- 0579 Jun, [facility] [place] [facility] [address] [id number] [place] [address]- 4766 Jun, [facility] [place] [facility] [address] [id number] [place] [address] 2546 Jun, [facility] [address] [id number] [place] [address]- 5756 28 May, 2012 [facility] [place] [facility] [address] [id number] [place] [address] 2546 14 May, 2012 [facility] [place] [facility] [address] [id number] [place] [address]- 8056 05 May, 2012 [facility] [place] [facility] [address] [id number] [place] [address]- 2546 May, [facility] [place] [facility] [address] [id number] [place] [address]- 3336 May, [facility] [place] [facility] [address] [id number] [place] [address]- 5876 May, [facility] [place] [facility] [address] [id number] [place] [address]- 7388 Apr, [facility] [place] [facility] [address] [id number] [place] [address]- 8592 Apr, [facility] [place] [facility] [address] [id number] [place] [address]- 4116 30 Apr, 2012 [facility] [place] [facility] [address] [id number] [place] [address]- 1102 Apr, [facility] [place] [facility] [address] [id number] [place] [address]- 4226 15 Mar, 2012 [facility] [place] [facility] [address] [id number] [place] [address] 2546 14 Mar, 2012 [facility] [place] [facility] [address] [id number] [place] [address] 2546 14 Mar, 2012 [facility] [place] [facility] [address] [id number] [place] [address] 2546 14 Mar, 2012 [facility] [place] [facility] [address] [id number] [place] [address]- 6879 Mar, [facility] [place] [facility] [address] [id number] [place] [address]- 1291 Mar, [facility] [place] [facility] [address] [id number] [place] [address]- 1401 Mar, [facility] [place] [facility] [address] [id number] [place] [address]- 4985 Feb, [facility] [place] [facility] [address] [id number] [place] [address]- 6461 Feb, [facility] [place] [facility] [address] [id number] [place] [address]- 6863 Feb, [facility] [place] [facility] [address] [id number] [place] [address]- 1780 Feb, [facility] [place] [facility] [address] [facility] [id number] [place] [address]- 0878 Jan, [facility] [place] [facility] [address] [id number] [place] [address]- 3226 Jan, [facility] [place] [facility] [address] [id number] [place] [address]- 9023 Jan, [facility] [place] [facility] [address] [facility] [id number] [place] [address]- 0678 Jan, [facility] [place] [facility] [address] [id number] [place] [address]- 4047 Jan, [facility] [place] [facility] [address] [id number] [place] [address]- 0217 Jan, [facility] [place] [facility] [address] [id number] [place] [address]- 9274 Dec, [facility] [place] [facility] [address] [id number] [place] [address]- 8123 Dec, [facility] [place] [facility] [address] [facility] [id number] [place] [address]- 3505 Nov, [facility] [place] [facility] [address] [id number] [place] [address]- 4602 Sep, [facility] [place] [facility] [address] [id number] [place] [address]- 5503 August, [facility] [place] [facility] [address] [id number] [place] [address]- 1939 August, [facility] [place] [facility] [address] [id number] [place] [address]- 0386 August, [facility] [place] [facility] [address] [id number] [place] [address]- 7453 August, [facility] [place] [facility] [address] [id number] [place] [address]- 0955 August, [facility] [place] [facility] [address] [id number] [place] [address]- 5601 Jun, [facility] [place] [facility] [address] [id number] [place] [address]- 4483 Jun, [facility] [place] [facility] [address] [id number] [place] [address]- 6183 Apr, [facility] [place] [facility] [address] [id number] [place] [address]- 2710 Apr, [facility] [place] [facility] [address] [facility] [id number] [place] [address]- 3961 Mar, [facility] [place] [facility] [address] [id number] [place] [address]- 2814 Feb, [facility] [place] [facility] [address] [id number] [place] [address]- 5207 Feb, [facility] [place] [facility] [address] [id number] [place] [address]- 8692 14 Feb, 2011 [facility] [place] [facility] [address] [id number] [place] [address]- 7576 17 Jan, 2011 [facility] [place] [facility] [address] [id number] [place] 6747 15 Jan, 2011 [facility] [id number] [address] 2546 Jan, [facility] [id number] [place] [address] 2546 Jan, [facility] [id number] [address] 2546 May, [facility] [id number] [place] [address]2622 2546 Mar, [facility] [id number] [place] [address] 95016- 6594 Oct, [facility] [id number] [place] [address] 64210- 2546 Sep, [facility] [id number] [place] [address] 01343 2546 Mar, [facility] [id number] [place] [address] 17116- 6296 Jan, [facility] [id number] [address]- 8738 Jan, [facility] [address] [address]- 0726 May, IMMUNIZATIONS Vaccine Route Administration Date Status ROCEPHIN 1 GM (IM) IM Intramuscular Feb 15, 2017 Administered SOCIAL HISTORY Never Assessed REASON FOR VISIT Injection---CRyburn,CCMA PLAN OF CARE VITAL SIGNS MEDICATIONS Unknown Medications RESULTS No Results PROCEDURES Procedure Date Ordered Result Body Site ROCEPHIN 1 GM (IM) Feb 15, 2017 THER/PROPH/DIAG INJ, SC/IM Feb 15, 2017 INSTRUCTIONS MEDICATIONS ADMINISTERED No Known Medications MEDICAL (GENERAL) HISTORY Type Description Date Medical History hypertension Medical History Colposcopy with loop electrode excision of the cervix was performed 06/2012, mild squamous atypia (no definite dyplasia). Performed at [facility] Dr. Joy. Medical History Acute [...]
--- OUTSIDE RECORDS SUMMARY | 2018-06-10 05:24 | XMS REPORT ---
Author Author PHUWILLAMATTHEW [facility] Address [address] [place] [address] Care Team Providers Care Digital Experience Manager Name Role Phone MATTHEW BAY Unavailable PROBLEMS Type Condition ICD9-CM Code WTA70-PY Code Onset Dates Condition Status SNOMED Code Problem Abnormal glucose R73.09 Active 185256866 Problem Anxiety F41.9 Active 71640789 Problem Neuroforaminal stenosis of spine M99.89 Active 627068291917 Problem Abnormal ultrasound of uterus R93.5 Active 577026992 Problem Abnormal MRI, shoulder R93.8 Active 132636304 Problem Chronic pain due to trauma G89.21 Active 166393523 Problem Essential hypertension I10 Active 41301510 Problem Neck pain M54.2 Active 47748573 Problem Hypokalemia E87.6 Active 72067457 Problem Mixed hyperlipidemia E78.2 Active 60465959 ALLERGIES Substance Reaction Event Type Date Status Macrobid rash Drug Allergy Dec, Active Cipro hives Drug Allergy Dec, Active Baclofen Unknown Drug Allergy Dec, Active Amitriptyline HCl dizziness Drug Allergy Dec, Active Peanut Unknown Non Drug Allergy Dec, Active ENCOUNTERS Encounter Location Date Diagnosis [facility] [id number] [address] August, [facility] [address] [address] Jul, Neuroforaminal stenosis of spine M99.89 [facility] [address] [address] Jul, Lateral epicondylitis, right elbow M77.11 [facility] [address] [address] Jul, [facility] [id number] [place] [address] 92806- 0537 Jun, High ankle sprain of right lower extremity, initial encounter S93.431A [place] [facility] [address] 8[address]12- 4259 Jun, Essential hypertension I10 [place] [facility] [address] 28867- 1676 Jun, [place] [address] 32563- 7014 Jun, [place] [facility] [address] 82776- 1779 Jun, Neuroforaminal stenosis of spine M99.89 [place] [facility] [address] 82624- 5702 Jun, Pain of right upper extremity M79.601 and Essential hypertension I10 [place] [address] 82774- 9591 Jun, [place] [facility] [address] 19924- 9485 Jun, Dysuria R30.0 ; Acute cystitis with hematuria N30.01 and Screen for STD (sexually transmitted disease) Z11.3 [place] [id number] [place] [address] 88962- 5487 May, Chronic pain due to trauma G89.21 [place] [facility] [id number] [place] [address] 52564- 1747 May, Essential hypertension I10 [place] [facility] [address] 11494- 8022 May, Neuroforaminal stenosis of spine M99.89 [place] [facility] [id number] [place] [address] 45544- 5070 Apr, Allergic reaction, initial encounter T78.40XA [place] [address] 46461- 9819 Apr, Low back pain, unspecified back pain laterality, unspecified chronicity, with sciatica presence unspecified M54.5 ; Acute cystitis with hematuria N30.01 ; Neuroforaminal stenosis of spine M99.89 ; Bilateral acute serous otitis media, recurrence not specified H65.03 ; Mixed hyperlipidemia E78.2 ; Essential hypertension I10 ; Immunization counseling Z71.89 and Encounter for immunization Z23 [facility] [id number] [place] [address] 00993- 0829 Apr, Neck pain M54.2 [place] [facility] [id number] [place] [address] 27229- 8517 Mar, Neuroforaminal stenosis of spine M99.89 [place] [id number] [place] [address] 33460- 8889 Mar, Pharyngitis due to other organism J02.8 [place] [id number] [place] [address] 27986- 6447 Feb, Neuroforaminal stenosis of spine M99.89 [facility] [id number] [place] [address] 84122- 7759 Feb, UTI (urinary tract infection) N39.0 [place] [address] [place] [address] 02517- 8622 07 Feb, 2017 Recent urinary tract infection Z87.440 ; Neuroforaminal stenosis of spine M99.89 ; Neck pain M54.2 ; Chronic pain due to trauma G89.21 and Recurrent UTI N39.0 [facility] [address] [place] [address] 94421- 5113 Feb, [facility] [id number] [place] [address] 76103- 2588 Jan, Neuroforaminal stenosis of spine M99.89 [facility] [id number] [place] [address] 17479- 0558 Dec, Neuroforaminal stenosis of spine M99.89 [facility] [id number] [place] [address] 29760- 7144 18 Dec, 2016 Acute seasonal allergic rhinitis due to pollen J30.1 [facility] [id number] [place] [address] 43707- 5458 08 Dec, 2016 [facility] [id number] [place] [address] 28965- 5378 Dec, Acute seasonal allergic rhinitis, unspecified trigger J30.2 ; Allergic conjunctivitis of both eyes H10.13 and Dysfunction of both eustachian tubes H69.83 [place] [id number] [place] [address] 60024- 9252 Dec, [place] [id number] [place] [address] 95070- 9843 Dec, Nevus D22.9 [place] [address] 94245- 3087 Nov, Chronic pain due to trauma G89.21 and Neuroforaminal stenosis of spine M99.89 [place] [id number] [place] [address] 36591- 8936 Nov, Neuroforaminal stenosis of spine M99.89 ; Essential hypertension I10 ; Mixed hyperlipidemia E78.2 ; Hypokalemia E87.6 ; Neck pain M54.2 and Nevus D22.9 [place] [id number] [place] [address] 17715- 9840 Oct, Neuroforaminal stenosis of spine M99.89 [facility] [id number] [place] [address] 15698- 0377 Sep, Neuroforaminal stenosis of spine M99.89 [facility] [id number] [place] [address] 87382- 6041 Sep, [facility] [id number] [place] [address] 09910- 2913 August, [facility] [id number] [place] [address] 57393- 6867 August, Neck pain M54.2 and Neuroforaminal stenosis of spine M99.89 [facility] [id number] [place] [address] 25291- 8506 August, Routine gynecological examination Z01.419 and Screening breast examination Z12.39 [facility] [address] 07538- 2320 Jul, [facility] [id number] [place] [address] 57918- 4660 Jul, [facility] [id number] [place] [address] 05590- 3931 Jul, Neuroforaminal stenosis of spine M99.89 [facility] [id number] [place] [address] 74363- 3343 Jul, [facility] [id number] [place] [address] 80978- 2168 Jul, 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 [facility] [id number] [place] [address] 52265- 9380 Jul, [facility] [id number] [place] [address] 55068- 1688 Jul, [facility] [id number] [place] [address] 27466- 6750 Jun, Neuroforaminal stenosis of spine M99.89 [facility] [id number] [place] [address] 71496- 2186 Jun, Uterine leiomyoma, unspecified location D25.9 and Allergic reaction caused by a drug, initial encounter T78.40XA [facility] [id number] [place] [address] 45469- 1575 Jun, [facility] [id number] [place] [address] 23534- 3753 May, UTI symptoms R39.9 and Pain of right sacroiliac joint M53.3 [place] [id number] [place] [address] 98706- 4790 May, Neuroforaminal stenosis of spine M99.89 [place] [id number] [place] [address] 28904- 0890 May, [place] [id number] [place] [address] 64910- 7484 May, Acute mucoid otitis media of left ear H65.112 and Acute non- recurrent maxillary sinusitis J01.00 [place] [id number] [place] [address] 73564- 1790 May, Acute bacterial conjunctivitis of both eyes H10.33 ; Left arm pain M79.602 and Hypokalemia E87.6 [place] [id number] [place] [address] 90948- 4516 Apr, [place] [id number] [place] [address] 97453- 0330 Apr, Neuroforaminal stenosis of spine M99.89 ; Neck pain M54.2 ; Chronic pain due to trauma G89.21 ; Mixed hyperlipidemia E78.2 ; Essential hypertension I10 and Hypokalemia E87.6 [place] [id number] [place] [address] 62038- 8186 Mar, Oral candidiasis B37.0 ; Neuroforaminal stenosis of spine M99.89 ; Neck pain M54.2 and Chronic pain due to trauma G89.21 [place] [id number] [place] [address] 56927- 8227 Feb, [place] [id number] [place] [address] 01706- 2750 Feb, [place] [id number] [place] [address] 15936- 7908 Feb, UTI (urinary tract infection) N39.0 [facility] [id number] [place] [address] 18630- 2120 Feb, Dysuria R30.0 [facility] [id number] [place] [address] 94149- 8113 Feb, Dysuria R30.0 [facility] [id number] [place] [address] 96409- 7659 Feb, Neuroforaminal stenosis of spine M99.89 ; Neck pain M54.2 ; Essential hypertension I10 ; Chronic pain due to trauma G89.21 ; Dysuria R30.0 ; Abnormal MRI, shoulder R93.8 and Acute cystitis without hematuria N30.00 [facility] [id number] [place] [address] 79172- 6020 Jan, [facility] [id number] [place] [address] 94237- 5925 Jan, [facility] [id number] [place] [address] 09471- 6856 Jan, [facility] [id number] [place] [address] 31004- 9248 Jan, Abnormal MRI R93.8 [facility] [id number] [place] [address] 40400- 5296 29 Dec, 2015 [facility] [address] [place] [address] 66892 -9579 15 Dec, 2015 Acute pain of left shoulder M25.512 [facility] [address] [place] [address] 73392- 2793 09 Dec, 2015 [facility] [id number] [place] [address] 01749- 3152 08 Dec, 2015 [facility] [id number] [place] [address] 41351- 2821 07 Dec, 2015 Acute pain of left shoulder M25.512 [facility] [id number] [address]- 9585 Nov, [facility] [address] [id number] [address]- 6907 Nov, Neuroforaminal stenosis of spine M99.89 ; Neck pain M54.2 ; Abnormal mammogram R92.8 ; Essential hypertension I10 and Chronic pain due to trauma G89.21 [facility] [id number] [place] [address] 52517- 4534 Nov, [facility] [address] [id number] [address]- 2437 Oct, Acute stress disorder F43.0 [facility] [address] [facility] [id number] [place] [address] 51313- 6184 Oct, [facility] [id number] [address]- 0304 Oct, [facility] [address] [facility] [id number] [place] [address] 89647- 2168 Oct, [facility] [address] [id number] [address]- 5963 Sep, [facility] [address] [facility] [id number] [place] [address] 21175- 4675 August, [facility] [address] [id number] [address]- 7576 Jul, Neuroforaminal stenosis of spine M99.89 ; Neck pain M54.2 ; Abnormal mammogram R92.8 and Essential hypertension I10 [facility] [address] [id number] [address]- 2154 Jul, [facility] [address] [facility] [id number] [address]- 3348 Jul, [facility] [address] [facility] [id number] [place] [address]- 9770 Jul, Abnormal mammogram R92.8 [facility] [address] 8952 08 Jul, 2015 [facility] [address] [place] [address] 90199- 8391 Jul, UTI (urinary tract infection) N39.0 [facility] [address] 5132 Jul, Dysuria R30.0 [facility] [id number] [place] [address] 426111- 0330 Jun, [facility] [address] [place] [address] 84755- 2336 Jun, [place] [address] [place] [address] 76580- 2045 Jun, Hypokalemia E87.6 and Hematuria R31.9 [place] [id number] [place] [address] 04362- 0322 Jun, Hypokalemia E87.6 [place] [address] [place] [address] 12418- 7291 Jun, [place] [address] [place] [address] 76364- 3964 Jun, Hypokalemia E87.6 [place] [address] [address]- 8026 Jun, Hypokalemia E87.6 [facility] [address] [address]- 6103 15 Jun, 2015 Neuroforaminal stenosis of spine M99.89 ; Hypokalemia E87.6 ; Neck pain M54.2 ; Essential hypertension I10 ; Mixed hyperlipidemia E78.2 and Screening breast examination Z12.39 [place] [address] [address]- 2809 08 Jun, 2015 Dysuria R30.0 ; UTI (urinary tract infection) N39.0 and Hematuria R31.9 [facility] [address] [place] [address] 34151- 7846 May, [facility] [id number] [place] [address] 44291- 5302 18 May, 2015 High risk sexual behavior Z72.51 ; Hypokalemia E87.6 ; Neuroforaminal stenosis of spine M99.89 ; Neck pain M54.2 ; Essential hypertension I10 ; Mixed hyperlipidemia E78.2 ; STD exposure Z20.2 and Concern about STD in female without diagnosis Z71.1 [facility] [id number] [place] [address] 84932- 0187 16 May, 2015 Neuroforaminal stenosis of spine M99.89 ; Neck pain M54.2 ; Hypokalemia E87.6 ; Essential hypertension I10 and Mixed hyperlipidemia E78.2 [place] [id number] [place] [address] 11253- 4994 May, [facility] [id number] [place] [address] 23613 -8734 08 May, 2015 High risk sexual behavior Z72.51 ; STD exposure Z20.2 and Concern about STD in female without diagnosis Z71.1 [place] [id number] [place] [address] 21699- 7292 May, [facility] [address] [place] [address] 44881- 5341 Apr, Neuroforaminal stenosis of spine M99.89 ; Mixed hyperlipidemia E78.2 ; Essential hypertension I10 and Hypokalemia E87.6 [place] [id number] [place] [address] 42789- 0073 Mar, [place] [id number] [place] [address] 41414- 4957 Mar, Hypokalemia E87.6 [facility] [address] [place] [address] 71758- 6299 Mar, Neuroforaminal stenosis of spine M99.89 ; Mixed hyperlipidemia E78.2 ; Neck pain M54.2 ; Essential hypertension I10 ; Abnormal fasting glucose R73.09 ; Hypokalemia E87.6 and Constipation K59.00 [facility] [id number] [place] [address] 06078- 4985 Feb, Neuroforaminal stenosis of spine M99.89 ; Mixed hyperlipidemia E78.2 ; Neck pain M54.2 ; Essential hypertension I10 ; Abnormal fasting glucose R73.09 ; Hypokalemia E87.6 and Constipation K59.00 [place] [id number] [place] [address] 06360- 2192 Feb, Elevated fasting blood sugar R73.01 [place] [id number] [place] [address] 58718- 1229 Feb, Elevated fasting blood sugar R73.01 [place] [address] 77671- 5159 Feb, Hair loss L65.9 [place] [address] 20881- 6687 Feb, Sinusitis J32.9 ; Essential hypertension I10 and Hair loss L65.9 [place] [id number] [place] [address] 41536- 7548 Jan, [place] [address] 96189- 6703 Jan, Essential hypertension I10 ; Neuroforaminal stenosis of spine M99.89 ; Neck pain M54.2 ; Mixed hyperlipidemia E78.2 and Anxiety F41.9 [place] [address] 91402- 4822 Jan, [place] [address] 67857- 3897 Jan, Mixed hyperlipidemia E78.2 ; Essential (primary) hypertension I10 ; Strain of muscle, fascia and tendon at neck level, subsequent encounter S16.1XXD and Tension-type headache, unspecified, not intractable G44.209 [facility] [id number] [place] [address] 58632- 6125 Dec, Lumbar back pain 724.2 and Neuroforaminal stenosis of spine 724.00 [facility] [address] 21522- 6015 Nov, [facility] [address] 78943- 2691 Nov, Lumbar back pain 724.2 and Neuroforaminal stenosis of spine 724.00 [facility] [address] 72401- 1633 Nov, Edema 782.3 ; Lumbar back pain 724.2 ; Essential hypertension, benign 401.1 ; Hyperlipemia 272.4 ; Neuroforaminal stenosis of spine 724.00 and Post-concussion headache 339.20 [facility] [id number] [place] [address] 49512- 4103 Nov, [facility] [address] 50637- 4776 Nov, [facility] [address] 35172- 8685 Oct, Essential hypertension, benign 401.1 [facility] [id number] [place] [address] 17086- 1623 Oct, Edema 782.3 ; Lumbar back pain 724.2 ; Essential hypertension, benign 401.1 ; Hyperlipemia 272.4 ; Neuroforaminal stenosis of spine 724.00 and Post-concussion headache 339.20 [facility] [address] 60563- 3137 Oct, [facility] [address] 00805- 2530 Oct, Edema 782.3 [facility] [address] [place] [address]- 3069 Oct, Lumbar back pain 724.2 [facility] [id number] [place] [address] 75468- 7490 Oct, Cervicalgia 723.1 ; Lumbar back pain 724.2 and High risk medication use V58.69 [facility] [id number] [place] [address] 67898- 1614 Sep, [facility] [id number] [place] [address] 67310- 5918 Sep, Lumbar strain 847.2 [facility] [address] 27750- 7597 August, Edema 782.3 and Eustachian tube dysfunction 381.81 [facility] [id number] [place] [address] 23177- 2320 August, [facility] [id number] [place] [address] 75046- 7493 August, Eustachian tube dysfunction 381.81 [facility] [id number] [place] [address] 08738- 3901 Jul, Otalgia 388.70 and Otitis media 382.9 [facility] [id number] [place] [address] 20922- 2029 Jul, [facility] [id number] [place] [address] 75743- 2988 Jul, [facility] [id number] [place] [address] 51354- 0725 Jul, [facility] [id number] [place] [address] 41351- 3314 Jul, [facility] [id number] [place] [address] 63380- 6288 Jul, [facility] [id number] [place] [address] 42060- 2056 Jun, [facility] [place] [facility] [address] [id number] [place] [address]- 1704 Jun, [facility] [place] [facility] [address] [id number] [place] [address]- 9173 Jun, [facility] [place] [facility] [address] [id number] [place] [address]- 1809 May, 2014 [facility] [place] [facility] [address] [id number] [place] [address]- 6319 May, 2014 [facility] [place] [facility] [address] [id number] [place] [address]- 8505 May, 2014 [facility] [place] [facility] [address] [id number] [place] [address] May, 2014 [facility] [place] [facility] [address] [id number] [place] [address] May, 2014 [facility] [place] [facility] [address] [id number] [place] [address] May, 2014 [facility] [place] [facility] [address] [id number] [place] [address] May, [facility] [place] [facility] [address] [facility] [id number] [place] [address] May, [facility] [place] [facility] [address] [facility] [id number] [place] [address] May, [facility] [place] [facility] [address] [facility] [id number] [place] [address] May, [facility] [place] [facility] [address] [id number] [place] [address] Apr, [facility] [place] [facility] [address] [id number] [place] [address] Apr, [facility] [place] [facility] [address] [facility] [id number] [place] [address] Apr, [facility] [place] [facility] [address] [id number] [place] [address] Apr, [facility] [place] [facility] [address] [id number] [place] [address] Apr, [facility] [place] [facility] [address] [id number] [place] [address] Apr, [facility] [place] [facility] [address] [id number] [place] [address] Apr, [facility] [place] [facility] [address] [id number] [place] [address] Apr, [facility] [place] [facility] [address] [id number] [place] [address] Apr, [facility] [place] [facility] [address] [id number] [place] [address] Apr, [facility] [place] [facility] [address] [id number] [place] [address] Apr, [facility] [place] [facility] [address] [id number] [place] [address] Apr, [facility] [place] [facility] [address] [id number] [place] [address] Apr, [facility] [place] [facility] [address] [id number] [place] [address] Apr, [facility] [place] [facility] [address] [id number] [place] [address] Apr, [facility] [place] [facility] [address] [id number] [place] [address] Mar, [facility] [place] [facility] [address] [id number] [place] [address] Mar, [facility] [place] [facility] [address] [id number] [place] [address] Mar, [facility] [place] [facility] [address] [id number] [place] [address] Mar, [facility] [place] [facility] [address] [id number] [place] [address] Feb, [facility] [place] [facility] [address] [id number] [place] [address] Feb, [facility] [place] [facility] [address] [id number] [place] [address] Feb, [facility] [place] [facility] [address] [id number] [place] [address] Feb, [facility] [place] [facility] [address] [address] [id number] [place] [address] Jan, [facility] [place] [facility] [address] [id number] [place] [address] 1986 Jan, [facility] [place] [facility] [address] [id number] [place] [address] 130[address] Jan, [facility] [place] [facility] [address] [id number] [address] Jan, [facility] [place] [facility] [address] [id number] [place] [address] 12[address] Jan, [facility] [place] [facility] [address] [id number] [place] [address] Jan, [facility] [place] [facility] [address] [id number] [place] [address] Jan, [facility] [place] [facility] [address] [id number] [place] [address] Jan, [facility] [place] [facility] [address] [id number] [place] [address] 8018 Dec, [facility] [place] [facility] [address] [id number] [place] [address] 6736 Dec, [facility] [place] [facility] [address] [id number] [place] [address] 6777 Dec, [facility] [place] [facility] [address] [id number] [place] [address] 4485 04 Dec, 2013 [facility] [place] [facility] [address] [id number] [place] [address] 5816 Oct, 2013 [facility] [place] [facility] [address] [id number] [place] [address] 3870 Oct, 2013 [facility] [place] [facility] [address] [id number] [place] [address]- 475[address] Oct, 2013 [facility] [place] [facility] [address] [id number] [place] [address] 4698 Oct, 2013 [facility] [place] [facility] [address] [id number] [place] [address]- 2086 Oct, [facility] [place] [facility] [address] [id number] [place] [address]- 0781 Oct, 2013 [facility] [place] [facility] [address] [id number] [place] [address] 0497 Oct, 2013 [facility] [place] [facility] [address] [id number] [place] [address] 3367 Oct, [facility] [place] [facility] [address] [id number] [place] [address]- 0257 Sep, [facility] [place] [facility] [address] [id number] [place] [address] 8676 Sep, [facility] [place] [facility] [address] [id number] [place] [address]- 0956 Sep, [facility] [place] [facility] [address] [id number] [place] [address] 8767 Sep, [facility] [place] [facility] [address] [id number] [place] [address]- 1213 Sep, [facility] [place] [facility] [address] [id number] [place] [address]- 4328 Sep, [facility] [place] [facility] [address] [id number] [place] [address]- 4903 Sep, [facility] [place] [facility] [address] [id number] [place] [address]- 9547 Sep, [facility] [place] [facility] [address] [id number] [place] [address]- 4996 Sep, [facility] [place] [facility] [address] [id number] [place] [address] 8205 Sep, [facility] [place] [facility] [address] [id number] [place] [address]- 6982 August, [facility] [place] [facility] [address] [id number] [place] [address] 8[address] August, [facility] [place] [facility] [address] [id number] [place] [address]- 6405 August, [facility] [place] [facility] [address] [id number] [place] [address] 3758 August, [facility] [place] [facility] [address] [id number] [place] [address] 5518 August, [facility] [place] [facility] [address] [id number] [place] [address]- 2577 August, [facility] [place] [facility] [address] [id number] [place] [address] 479[address] August, [facility] [place] [facility] [address] [id number] [place] [address] 7928 August, [facility] [place] [facility] [address] [id number] [place] [address] 5066 August, [facility] [place] [facility] [address] [id number] [place] [address]- 5973 August, [facility] [place] [facility] [address] [id number] [place] [address]- 9857 August, [facility] [place] [facility] [address] [id number] [place] [address]- 1020 August, [facility] [place] [facility] [address] [id number] [place] [address]- 3858 Jul, [facility] [place] [facility] [address] [id number] [place] [address]- 3643 Jul, [facility] [place] [facility] [address] [id number] [place] [address]- 0207 Jul, [facility] [place] [facility] [address] [id number] [place] [address]- 7332 Jul, [facility] [place] [facility] [address] [id number] [place] [address]- 7299 Jul, [facility] [place] [facility] [address] [id number] [place] [address]- 6714 Jul, [facility] [place] [facility] [address] [id number] [place] [address]- 4223 Jun, [facility] [place] [facility] [address] [id number] [place] [address]- 2511 Jun, [facility] [place] [facility] [address] [id number] [place] [address]- 8092 May, [facility] [place] [facility] [address] [id number] [place] [address]- 7276 May, [facility] [place] [facility] [address] [id number] [place] [address]- 6699 Apr, [facility] [place] [facility] [address] [id number] [place] [address]- 6442 Apr, [facility] [place] [facility] [address] [id number] [place] [address]- 7336 Apr, [facility] [place] [facility] [address] [id number] [place] [address]- 2488 Apr, [facility] [place] [facility] [address] [id number] [place] [address]- 0521 Apr, [facility] [place] [facility] [address] [id number] [place] [address]- 5607 Apr, [facility] [place] [facility] [address] [id number] [place] [address]- 1063 Apr, [facility] [address] [id number] [place] [address]- 0208 Apr, [facility] [place] [facility] [address] [id number] [place] [address]- 5605 Apr, [facility] [address] [id number] [place] [address]- 7673 Apr, [facility] [address] [id number] [place] [address]- 8751 Apr, [facility] [address] [id number] [place] [address]- 7927 Apr, [facility] [address] [id number] [place] [address]- 1087 Apr, [facility] [address] [id number] [place] [address]- 3604 Mar, [facility] [address] [id number] [place] [address]- 3080 Mar, [facility] [address] [id number] [place] [address]- 0456 Mar, [facility] [address] [id number] [place] [address]- 2051 Mar, [facility] [place] [facility] [address] [id number] [place] [address]- 2712 Feb, [facility] [address] [id number] [place] [address]- 1846 Feb, [facility] [place] [facility] [address] [id number] [place] [address]- 0516 Feb, [facility] [place] [facility] [address] [id number] [place] [address]- 2546 08 Feb, 2013 [facility] [place] [facility] [address] [id number] [place] [address] 14 Jan, 2013 [facility] [place] [facility] [address] [id number] [place] [address]- 4260 14 Jan, 2013 [facility] [place] [facility] [address] [id number] [place] [address]- 5689 Jan, [facility] [place] [facility] [address] [id number] [place] [address]- 4787 11 Jan, 2013 [facility] [place] [facility] [address] [id number] [place] [address]- 0430 10 Jan, 2013 [facility] [place] [facility] [address] [id number] [place] [address]- 6372 10 Jan, 2013 [facility] [place] [facility] [address] [id number] [place] [address]- 3504 Jan, [facility] [place] [facility] [address] [id number] [place] [address]- 7256 Jan, [facility] [place] [facility] [address] [id number] [place] [address]- 4968 Jan, [facility] [place] [facility] [address] [id number] [place] [address]- 1222 26 Dec, 2012 [facility] [place] [facility] [address] [id number] [place] [address]- 4611 16 Dec, 2012 [facility] [place] [facility] [address] [id number] [place] [address]- 2816 16 Dec, 2012 [facility] [place] [facility] [address] [id number] [address] 5143 13 Dec, 2012 [facility] [place] [facility] [address] [id number] [place] [address]- 2929 17 Nov, 2012 [facility] [place] [facility] [address] [id number] [place] [address]- 0103 17 Nov, 2012 [facility] [place] [facility] [address] [id number] [place] [address]- 1097 14 Nov, 2012 [facility] [place] [facility] [address] [id number] [place] [address]- 5497 Nov, [facility] [address] [id number] [place] [address]- 3784 Oct, [facility] [address] [id number] [place] [address]- 0597 Sep, [facility] [address] [id number] [place] [address]- 2541 August, [facility] [address] [id number] [place] [address]- 1036 August, [facility] [address] [id number] [place] [address]- 9709 August, [facility] [address] [id number] [place] [address]- 2325 August, [facility] [address] [id number] [place] [address]- 7932 August, [facility] [address] [id number] [place] [address]- 3622 August, [facility] [address] [id number] [place] [address]- 4835 August, [facility] [address] [id number] [place] [address]- 4947 August, [facility] [address] [id number] [place] [address]- 7894 August, [facility] [address] [id number] [place] [address]- 7986 August, [facility] [address] [id number] [place] [address]- 2115 August, [facility] [address] [id number] [place] [address]- 5816 August, [facility] [address] [id number] [place] [address]- 7940 Jul, [facility] [address] [id number] [place] [address]- 5091 Jul, [facility] [address] [id number] [place] [address]- 6140 Jul, [facility] [place] [facility] [address] [id number] [place] [address]- 1090 Jul, [facility] [address] [id number] [place] [address]- 1729 Jul, [facility] [address] [id number] [place] [address]- 7900 Jul, [facility] [place] [facility] [address] [id number] [place] [address]- 8487 Jul, [facility] [address] [id number] [place] [address]- 6784 Jul, [facility] [address] [id number] [place] [address]- 4606 Jul, [facility] [address] [id number] [place] [address]- 5233 Jul, [facility] [address] [id number] [place] [address]- 8465 Jul, [facility] [address] [id number] [place] [address]- 3495 Jun, [facility] [place] [facility] [address] [id number] [place] [address]- 8752 Jun, [facility] [place] [facility] [address] [id number] [place] [address]- 1045 Jun, [facility] [place] [facility] [address] [id number] [place] [address]- 4411 Jun, [facility] [place] [facility] [address] [id number] [place] [address]- 4151 May, [facility] [place] [facility] [address] [id number] [place] [address]- 1779 14 May, 2012 [facility] [address] [id number] [place] [address]- 1898 05 May, 2012 [facility] [address] [id number] [place] [address]- 0806 May, [facility] [address] [id number] [place] [address]- 4496 May, [facility] [address] [id number] [place] [address]- 6438 May, [facility] [address] [id number] [place] [address]- 4250 Apr, [facility] [address] [id number] [place] [address]- 5499 Apr, [facility] [address] [id number] [place] [address]- 2972 Apr, [facility] [address] [id number] [place] [address]- 9166 Apr, [facility] [address] [facility] [id number] [place] [address]- 8186 15 Mar, 2012 [facility] [address] [facility] [id number] [place] [address]- 5296 14 Mar, 2012 [facility] [address] [facility] [id number] [place] [address]- 9868 14 Mar, 2012 [facility] [address] [id number] [place] [address]- 4820 14 Mar, 2012 [facility] [place] [facility] [address] [id number] [place] [address]- 3556 14 Mar, 2012 [facility] [place] [facility] [address] [id number] [place] [address]- 3395 06 Mar, 2012 [facility] [address] [facility] [id number] [place] [address]- 4976 06 Mar, 2012 [facility] [place] [facility] [address] [id number] [place] [address]- 9213 Feb, [facility] [place] [facility] [address] [id number] [place] [address]- 2607 Feb, [facility] [place] [facility] [address] [id number] [place] [address]- 1675 Feb, [facility] [place] [facility] [address] [id number] [place] [address]- 2166 Feb, [facility] [place] [facility] [address] [id number] [place] [address]- 2042 Jan, [facility] [place] [facility] [address] [id number] [place] [address]- 6788 Jan, [facility] [place] [facility] [address] [id number] [place] [address]- 9867 Jan, [facility] [place] [facility] [address] [id number] [place] [address]- 2023 Jan, [facility] [place] [facility] [address] [id number] [place] [address]- 3546 Jan, [facility] [place] [facility] [address] [id number] [place] [address]- 9895 Jan, [facility] [place] [facility] [address] [id number] [place] [address]- 3396 Dec, [facility] [place] [facility] [address] [id number] [place] [address]- 8182 Dec, [facility] [place] [facility] [address] [id number] [place] [address]- 2639 Nov, [facility] [place] [facility] [address] [id number] [place] [address]- 5989 Sep, [facility] [place] [facility] [address] [id number] [place] [address]- 6937 August, [facility] [place] [facility] [address] [id number] [place] [address]- 5264 August, [facility] [place] [facility] [address] [id number] [place] [address]- 9590 August, [facility] [place] [facility] [address] [id number] [place] [address]- 5879 August, [facility] [place] [facility] [address] [id number] [place] [address]- 4590 August, [facility] [place] [facility] [address] [id number] [place] [address]- 8709 Jun, [facility] [place] [facility] [address] [id number] [place] [address]- 3951 Jun, [facility] [place] [facility] [address] [id number] [place] [address]- 9201 Apr, [facility] [place] [facility] [address] [id number] [place] [address]- 3331 Apr, [facility] [place] [facility] [address] [id number] [place] [address]- 5384 Mar, [facility] [place] [facility] [address] [id number] [place] [address]- 3643 Feb, [facility] [place] [facility] [address] [id number] [place] [address]- 3196 14 Feb, 2011 [facility] [place] [facility] [address] [id number] [place] [address]- 3512 14 Feb, 2011 [facility] [place] [facility] [address] [id number] [place] [address]- 3647 17 Jan, 2011 [facility] [place] [facility] [address] [id number] [place] [address]- 6584 15 Jan, 2011 [facility] [place] [facility] [address] [id number] [place] [address]- 6985 15 Jan, 2011 [facility] [place] [facility] [address] [id number] [place] [address]- 7547 14 Jan, 2011 [facility] [place] [facility] [address] [id number] [address]- 3956 15 May, 2010 [facility] [id number] [address]- 7746 Mar, [facility] [id number] [address] 2546 Oct, [facility] [id number] [address]- 6367 Sep, [facility] [id number] [place] [address] 2546 Mar, [facility] [id number] [place] [address]- 2689 Jan, [facility] [id number] [place] [address]- 8046 Jan, [facility] [id number] [place] [address]- 9125 May, IMMUNIZATIONS No Known Immunizations SOCIAL HISTORY Never Assessed REASON FOR VISIT URI c/o, pt. states was here on 12/16/16 and was given a steroid injection which has not helped her , yellow phelgm and cough, itchy and water eyes----[place], CCMA PLAN OF CARE Activity Details Follow Up prn Reason: VITAL SIGNS Height 62 in 2016-12-26 Weight 169.6 lbs 2016-12-26 Temperature 98.7 degrees Fahrenheit 2016-12-26 Heart Rate 82 bpm 2016-12-26 Respiratory Rate 18 2016-12-26 BMI 31.02 kg/m2 2016-12-26 Blood pressure systolic 123 mmHg 2016-12-26 Blood pressure diastolic 84 mmHg 2016-12-26 MEDICATIONS Medication Instructions Dosage Frequency Start Date End Date Duration Status Triamterene-HCTZ 37.5-25 MG Orally Once a day 1 tablet in the morning 24h 30 Active Ibuprofen 800 MG Orally PRN for pain 1 tablet as needed Active Cyclobenzaprine HCl 10 mg orally tid prn 1 tablet Active Hydrocodone-Acetaminophen 5-325 MG Orally 3 -4 times a day prn. must last 4 weeks 1 tablet as needed Nov, 28 days Active Meclizine HCl 25 MG Orally Once a day 1 tablet as needed 24h Active Amlodipine Besylate 5 mg Orally Once a day 1 tablet 24h Active Klor-Con 10 10 MEQ Orally Once a day 2 tablet with food 24h Active Pravastatin Sodium 20 mg TAKE ONE TABLET BY MOUTH AT BEDTIME 30 Active Flonase Allergy Relief 50 MCG/ACT Nasally Once a day 1 spray in each nostril 24h May, 30 day(s) Active RESULTS No Results PROCEDURES No Known procedures INSTRUCTIONS MEDICATIONS ADMINISTERED No Known Medications MEDICAL (GENERAL) HISTORY Type Description Date Medical History hypertension Medical History Colposcopy with loop electrode excision of the cervix was performed 06/2012, mild squamous atypia (no definite dyplasia). Performed at [facility] Dr. Joy. Medical History Acute suppurative otitis [...]
--- OUTSIDE RECORDS SUMMARY | 2018-06-10 05:25 | XMS REPORT ---
Author Author Chloe TATIANA Organization [facility] Address [address] [place] [address] Care Team Providers Care [employer]ity [employer] Analyst Name Role Phone terezaANDRES ChinNETTE Unavailable PROBLEMS Type Condition ICD9-CM Code CHG46-UE Code Onset Dates Condition Status SNOMED Code Problem Abnormal glucose R73.09 Active 188311513 Problem Anxiety F41.9 Active 57005289 Problem Neuroforaminal stenosis of spine M99.89 Active 305196332185 Problem Abnormal ultrasound of uterus R93.5 Active 031009291 Problem Abnormal MRI, shoulder R93.8 Active 294874982 Problem Chronic pain due to trauma G89.21 Active 134089766 Problem Essential hypertension I10 Active 50543280 Problem Neck pain M54.2 Active 58503013 Problem Hypokalemia E87.6 Active 42785805 Problem Mixed hyperlipidemia E78.2 Active 45508865 ALLERGIES No Information ENCOUNTERS Encounter Location Date Diagnosis [place] [id number] [place] [address] 85058- 2978 Jul, [facility] [address] 13001- 9399 Jun, High ankle sprain of right lower extremity, initial encounter S93.431A [facility] [id number] [place] [address] 92307- 7103 Jun, Essential hypertension I10 [facility] [id number] [place] [address] 94988- 8469 Jun, [facility] [id number] [place] [address] 28075- 4975 Jun, [facility] [id number] [place] [address] 16106- 7156 Jun, Neuroforaminal stenosis of spine M99.89 [place] [address] 83406- 1294 Jun, Pain of right upper extremity M79.601 and Essential hypertension I10 [place] [address] 07465- 9012 Jun, [place] [address] 64289- 4576 Jun, Dysuria R30.0 ; Acute cystitis with hematuria N30.01 and Screen for STD (sexually transmitted disease) Z11.3 [place] [address] 39778- 5586 May, Chronic pain due to trauma G89.21 [place] [address] 02613- 6523 May, Essential hypertension I10 [place] [address] 54121- 4703 May, Neuroforaminal stenosis of spine M99.89 [place] [address] 03756- 8906 Apr, Allergic reaction, initial encounter T78.40XA [place] [address] 60916- 0667 Apr, Low back pain, unspecified back pain laterality, unspecified chronicity, with sciatica presence unspecified M54.5 ; Acute cystitis with hematuria N30.01 ; Neuroforaminal stenosis of spine M99.89 ; Bilateral acute serous otitis media, recurrence not specified H65.03 ; Mixed hyperlipidemia E78.2 ; Essential hypertension I10 ; Immunization counseling Z71.89 and Encounter for immunization Z23 [place] [address] 64874- 5371 Apr, Neck pain M54.[address] 10536- 9992 Mar, Neuroforaminal stenosis of spine M99.89 [facility] [id number] [place] [address] 22365- 7010 Mar, Pharyngitis due to other organism J02.8 [facility] [id number] [place] [address] 55401- 3186 Feb, Neuroforaminal stenosis of spine M99.89 [facility] [id number] [place] [address] 77032- 0295 Feb, UTI (urinary tract infection) N39.0 [place] [id number] [place] [address] 04419- 5798 Feb, Recent urinary tract infection Z87.440 ; Neuroforaminal stenosis of spine M99.89 ; Neck pain M54.2 ; Chronic pain due to trauma G89.21 and Recurrent UTI N39.0 [place] [id number] [place] [address] 10769- 7027 Feb, [place] [id number] [place] [address] 63653- 2021 Jan, Neuroforaminal stenosis of spine M99.89 [place] [id number] [place] [address] 40876- 7768 Dec, Neuroforaminal stenosis of spine M99.89 [place] [id number] [place] [address] 87043- 5459 18 Dec, 2016 Acute seasonal allergic rhinitis due to pollen J30.1 [place] [address] [place] [address] 05451- 2800 Dec, [place] [id number] [place] [address] 78625- 3164 Dec, Acute seasonal allergic rhinitis, unspecified trigger J30.2 ; Allergic conjunctivitis of both eyes H10.13 and Dysfunction of both eustachian tubes H69.83 [place] [id number] [place] [address] 51784- 8689 Dec, [facility] [id number] [place] [address] 05796- 4382 Dec, Nevus D22.9 [facility] [id number] [place] [address] 61370- 5086 Nov, Chronic pain due to trauma G89.21 and Neuroforaminal stenosis of spine M99.89 [facility] [id number] [place] [address] 89752- 7528 Nov, Neuroforaminal stenosis of spine M99.89 ; Essential hypertension I10 ; Mixed hyperlipidemia E78.2 ; Hypokalemia E87.6 ; Neck pain M54.2 and Nevus D22.9 [facility] [id number] [place] [address] 35911- 1967 Oct, Neuroforaminal stenosis of spine M99.89 [facility] [id number] [place] [address] 93386- 7856 Sep, Neuroforaminal stenosis of spine M99.89 [facility] [id number] [place] [address] 62251- 2957 Sep, [facility] [id number] [place] [address] 68530- 9225 August, [facility] [id number] [place] [address] 72502- 4600 August, Neck pain M54.2 and Neuroforaminal stenosis of spine M99.89 [facility] [id number] [place] [address] 92213- 3925 August, Routine gynecological examination Z01.419 and Screening breast examination Z12.39 [facility] [id number] [place] [address] 76602- 5165 Jul, [facility] [id number] [place] [address] 50030- 3509 Jul, [facility] [id number] [place] [address] 36880- 3477 Jul, Neuroforaminal stenosis of spine M99.89 [facility] [id number] [place] [address] 41477- 5451 Jul, [facility] [id number] [place] [address] 77317- 3037 Jul, 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 [facility] [id number] [place] [address] 33367- 0239 Jul, [facility] [id number] [place] [address] 36579- 4986 Jul, [facility] [id number] [place] [address] 28710- 6194 Jun, Neuroforaminal stenosis of spine M99.89 [place] [id number] [place] [address] 28787- 5808 Jun, Uterine leiomyoma, unspecified location D25.9 and Allergic reaction caused by a drug, initial encounter T78.40XA [facility] [id number] [place] [address] 26326- 8243 Jun, [place] [id number] [place] [address] 14944- 6571 May, UTI symptoms R39.9 and Pain of right sacroiliac joint M53.3 [facility] [address] [place] [address] 17666- 2938 May, Neuroforaminal stenosis of spine M99.89 [facility] [id number] [place] [address] 86906- 9348 May, [facility] [id number] [place] [address] 52944- 2659 May, Acute mucoid otitis media of left ear H65.112 and Acute non- recurrent maxillary sinusitis J01.00 [facility] [address] [place] [address] 40129- 2954 May, Acute bacterial conjunctivitis of both eyes H10.33 ; Left arm pain M79.602 and Hypokalemia E87.6 [place] [id number] [place] [address] 75306- 4408 Apr, [place] [id number] [place] [address] 55048- 9955 Apr, Neuroforaminal stenosis of spine M99.89 ; Neck pain M54.2 ; Chronic pain due to trauma G89.21 ; Mixed hyperlipidemia E78.2 ; Essential hypertension I10 and Hypokalemia E87.6 [place] [id number] [place] [address] 96672- 7005 Mar, Oral candidiasis B37.0 ; Neuroforaminal stenosis of spine M99.89 ; Neck pain M54.2 and Chronic pain due to trauma G89.21 [place] [id number] [place] [address] 89998- 5008 Feb, [place] [id number] [place] [address] 80830- 6883 Feb, [place] [id number] [place] [address] 57261- 6448 Feb, UTI (urinary tract infection) N39.0 [place] [id number] [place] [address] 29606- 1843 Feb, Dysuria R30.0 [place] [id number] [place] [address] 11620- 1201 Feb, Dysuria R30.0 [place] [id number] [place] [address] 64968- 4156 Feb, Neuroforaminal stenosis of spine M99.89 ; Neck pain M54.2 ; Essential hypertension I10 ; Chronic pain due to trauma G89.21 ; Dysuria R30.0 ; Abnormal MRI, shoulder R93.8 and Acute cystitis without hematuria N30.00 [facility] [id number] [place] [address] 71507- 6728 Jan, [facility] [id number] [place] [address] 05995- 2913 Jan, [facility] [id number] [place] [address] 05161- 4233 Jan, [facility] [address] 89882- 4714 Jan, Abnormal MRI R93.8 [facility] [id number] [place] [address] 86467- 7935 29 Dec, 2015 [facility] [id number] [place] [address] 92905 -4636 15 Dec, 2015 Acute pain of left shoulder M25.512 [facility] [address] 62836- 6787 09 Dec, 2015 [facility] [id number] [place] [address] 26240- 5712 08 Dec, 2015 [facility] [id number] [place] [address] 35470- 8266 07 Dec, 2015 Acute pain of left shoulder M25.512 [facility] [id number] [place] [address] 59240- 2014 Nov, [facility] [id number] [place] [address] 99311- 0289 Nov, Neuroforaminal stenosis of spine M99.89 ; Neck pain M54.2 ; Abnormal mammogram R92.8 ; Essential hypertension I10 and Chronic pain due to trauma G89.21 [facility] [id number] [place] [address] 22513- 7245 Nov, [facility] [id number] [place] [address] 63302- 3278 Oct, Acute stress disorder F43.0 [place] [address] [facility] [id number] [address]- 0150 Oct, [facility] [address] [facility] [id number], [place] [address]- 8218 Oct, [facility] [address] [facility] [id number] [address]- 4853 Oct, [facility] [address] [place] [address] 96841- 0382 Sep, [facility] [address] [facility] [id number], [place] [address]- 8145 August, [facility] [address] [place] [address] 07096- 1080 Jul, Neuroforaminal stenosis of spine M99.89 ; Neck pain M54.2 ; Abnormal mammogram R92.8 and Essential hypertension I10 [facility] [address] [address]- 5621 Jul, [facility] [address] [address]- 9412 Jul, [facility] [address] [address]- 4300 Jul, Abnormal mammogram R92.8 [facility] [address] [address]- 7468 Jul, [facility] [address] [address]- 3055 Jul, UTI (urinary tract infection) N39.0 [facility] [address] [address]- 6795 Jul, Dysuria R30.0 [facility] [address] [id number] [address]- 2176 Jun, [facility] [address] [address]- 9413 Jun, [place] [address] [place] [address] 94661- 0817 Jun, Hypokalemia E87.6 and Hematuria R31.9 [place] [address] [place] [address] 94853- 9540 Jun, Hypokalemia E87.6 [place] [id number] [place] [address] 23531- 8180 Jun, [place] [id number] [place] [address] 74554- 4814 Jun, Hypokalemia E87.6 [place] [id number] [place] [address] 99405- 9279 Jun, Hypokalemia E87.6 [place] [id number] [place] [address] 78845- 7325 Jun, Neuroforaminal stenosis of spine M99.89 ; Hypokalemia E87.6 ; Neck pain M54.2 ; Essential hypertension I10 ; Mixed hyperlipidemia E78.2 and Screening breast examination Z12.39 [place] [id number] [place] [address] 71378- 9783 Jun, Dysuria R30.0 ; UTI (urinary tract infection) N39.0 and Hematuria R31.9 [place] [address] [place] [address] 23181- 7591 May, [place] [id number] [place] [address] 91522- 4722 May, High risk sexual behavior Z72.51 ; Hypokalemia E87.6 ; Neuroforaminal stenosis of spine M99.89 ; Neck pain M54.2 ; Essential hypertension I10 ; Mixed hyperlipidemia E78.2 ; STD exposure Z20.2 and Concern about STD in female without diagnosis Z71.1 [place] [address] [place] [address] 43944- 8359 16 May, 2015 Neuroforaminal stenosis of spine M99.89 ; Neck pain M54.2 ; Hypokalemia E87.6 ; Essential hypertension I10 and Mixed hyperlipidemia E78.2 [facility] [id number] [place] [address] 06224- 4188 May, [facility] [address] [place] [address] 99596 -2369 08 May, 2015 High risk sexual behavior Z72.51 ; STD exposure Z20.2 and Concern about STD in female without diagnosis Z71.1 [facility] [id number] [place] [address] 14159- 2103 May, [facility] [id number] [place] [address] 05631- 0546 Apr, Neuroforaminal stenosis of spine M99.89 ; Mixed hyperlipidemia E78.2 ; Essential hypertension I10 and Hypokalemia E87.6 [facility] [id number] [place] [address] 22874- 1786 Mar, [facility] [id number] [place] [address] 74278- 1140 Mar, Hypokalemia E87.6 [facility] [id number] [place] [address] 10510- 4352 Mar, Neuroforaminal stenosis of spine M99.89 ; Mixed hyperlipidemia E78.2 ; Neck pain M54.2 ; Essential hypertension I10 ; Abnormal fasting glucose R73.09 ; Hypokalemia E87.6 and Constipation K59.00 [facility] [address] [place] [address] 82960- 5170 Feb, Neuroforaminal stenosis of spine M99.89 ; Mixed hyperlipidemia E78.2 ; Neck pain M54.2 ; Essential hypertension I10 ; Abnormal fasting glucose R73.09 ; Hypokalemia E87.6 and Constipation K59.00 [place] [id number] [place] [address] 46934- 4567 Feb, Elevated fasting blood sugar R73.01 [place] [id number] [place] [address] 93740- 0593 Feb, Elevated fasting blood sugar R73.01 [place] [id number] [place] [address] 85734- 8304 Feb, Hair loss L65.9 [place] [address] 53051- 1707 Feb, Sinusitis J32.9 ; Essential hypertension I10 and Hair loss L65.9 [place] [id number] [place] [address] 00028- 7437 Jan, [place] [address] 50035- 7379 Jan, Essential hypertension I10 ; Neuroforaminal stenosis of spine M99.89 ; Neck pain M54.2 ; Mixed hyperlipidemia E78.2 and Anxiety F41.9 [place] [id number] [place] [address] 14277- 6399 Jan, [place] [address] 24211- 5902 Jan, Mixed hyperlipidemia E78.2 ; Essential (primary) hypertension I10 ; Strain of muscle, fascia and tendon at neck level, subsequent encounter S16.1XXD and Tension-type headache, unspecified, not intractable G44.209 [place] [id number] [place] [address] 75243- 3830 Dec, Lumbar back pain 724.2 and Neuroforaminal stenosis of spine 724.00 [place] [id number] [place] [address] 16616- 9903 Nov, [place] [address] 10451- 2707 Nov, Lumbar back pain 724.2 and Neuroforaminal stenosis of spine 724.00 [place] [address] [place] [address]- 9788 Nov, Edema 782.3 ; Lumbar back pain 724.2 ; Essential hypertension, benign 401.1 ; Hyperlipemia 272.4 ; Neuroforaminal stenosis of spine 724.00 and Post-concussion headache 339.20 [facility] [address] [place] [address] 99258- 1054 Nov, [facility] [id number] [place] [address] 15820- 8265 Nov, [facility] [id number] [place] [address] 45968- 5390 Oct, Essential hypertension, benign 401.1 [facility] [id number] [place] [address] 81688- 0927 Oct, Edema 782.3 ; Lumbar back pain 724.2 ; Essential hypertension, benign 401.1 ; Hyperlipemia 272.4 ; Neuroforaminal stenosis of spine 724.00 and Post-concussion headache 339.20 [facility] [address] [place] [address] 42311- 7185 Oct, [facility] [id number] [place] [address] 69779- 3460 Oct, Edema 782.3 [facility] [id number] [place] [address] 64643- 8789 Oct, Lumbar back pain 724.2 [facility] [id number] [place] [address] 73310- 1881 Oct, Cervicalgia 723.1 ; Lumbar back pain 724.2 and High risk medication use V58.69 [facility] [id number] [place] [address] 96095- 4918 Sep, [facility] [address] [place] [address] 52306- 9769 Sep, Lumbar strain 847.2 [facility] [id number] [place] [address] 03080- 4612 August, Edema 782.3 and Eustachian tube dysfunction 381.81 [facility] [address], [place] [address]- 2004 August, [facility] [id number] [address]- 0586 August, Eustachian tube dysfunction 381.81 [facility] [id number] [place] [address] 09172- 0185 Jul, Otalgia 388.70 and Otitis media 382.9 [facility] [id number] [place] [address] 18974- 5341 Jul, [facility] [id number] [address]- 5462 Jul, [facility] [id number] [address]- 2821 Jul, [facility] [address], [place] [address]- 6963 Jul, [facility] [address], [place] [address]- 1193 Jul, [facility] [address], [place] [address]- 4798 Jun, [facility] [address], [place] [address]- 4936 Jun, [facility] [address], [place] [address]- 4679 Jun, [facility] [address], [place] [address]- 3194 May, [facility] [address], [place] [address]- 3676 May, [facility] [address], [place] [address]- 6026 May, [facility] [place] [facility] [address] [id number] [place] [address]- 1998 May, [facility] [place] [facility] [address] [id number] [place] [address]- 6626 May, 2014 [facility] [place] [facility] [address] [id number] [place] [address]- 2428 May, 2014 [facility] [place] [facility] [address] [id number] [place] [address]- 6761 May, [facility] [place] [facility] [address] [id number] [place] [address]- 5281 May, [facility] [place] [facility] [address] [id number] [place] [address]- 4279 May, [facility] [place] [facility] [address] [id number] [place] [address]- 3426 May, [facility] [place] [facility] [address] [id number] [place] [address]- 0089 Apr, [facility] [place] [facility] [address] [id number] [place] [address]- 9486 Apr, [facility] [place] [facility] [address] [id number] [place] [address]- 1101 Apr, [facility] [place] [facility] [address] [id number] [place] [address] Apr, [facility] [place] [facility] [address] [id number] [place] [address] Apr, [facility] [place] [facility] [address] [id number] [place] [address] Apr, [facility] [place] [facility] [address] [id number] [place] [address] Apr, [facility] [place] [facility] [address] [id number] [place] [address] Apr, [facility] [place] [facility] [address] [id number] [place] [address] Apr, [facility] [place] [facility] [address] [id number] [place] [address] Apr, [facility] [place] [facility] [address] [id number] [place] [address] Apr, [facility] [place] [facility] [address] [id number] [place] [address] Apr, [facility] [place] [facility] [address] [id number] [place] [address]- [address] Apr, [facility] [place] [facility] [address] [id number] [place] [address] Apr, [facility] [place] [facility] [address] [id number] [place] [address] Apr, [facility] [place] [facility] [address] [id number] [place] [address] Mar, [facility] [place] [facility] [address] [id number] [place] [address] Mar, [facility] [place] [facility] [address] [id number] [place] [address] Mar, [facility] [place] [facility] [address] [id number] [place] [address] Mar, [facility] [place] [facility] [address] [id number] [place] [address] Feb, [facility] [place] [facility] [address] [id number] [place] [address] Feb, [facility] [place] [facility] [address] [id number] [place] [address] Feb, [facility] [place] [facility] [address] [id number] [place] [address] Feb, [facility] [place] [facility] [address] [id number] [place] [address] Jan, [facility] [place] [facility] [address] [id number] [place] [address] Jan, [facility] [place] [facility] [address] [id number] [place] [address] Jan, [facility] [place] [facility] [address] [id number] [place] [address]- [address] Jan, [facility] [place] [facility] [address] [id number] [place] [address] Jan, [facility] [place] [facility] [address] [id number] [place] [address] Jan, [facility] [place] [facility] [address] [id number] [place] [address] Jan, [facility] [place] [facility] [address] [id number] [place] [address] Jan, [facility] [place] [facility] [address] [address] [id number] [place] [address] Dec, [facility] [place] [facility] [address] [id number] [place] [address] 29 Dec, 2013 [facility] [place] [facility] [address] [id number] [place] [address] Dec, [facility] [place] [facility] [address] [id number] [place] [address] 6437 Dec, [facility] [place] [facility] [address] [id number] [place] [address] 7[address] Oct, [facility] [place] [facility] [address] [id number] [place] [address] 5169 Oct, [facility] [place] [facility] [address] [id number] [place] [address] 0548 Oct, [facility] [place] [facility] [address] [id number] [place] [address] 4715 Oct, [facility] [place] [facility] [address] [id number] [place] [address] 4138 Oct, [facility] [place] [facility] [address] [id number] [place] [address] 9244 Oct, [facility] [place] [facility] [address] [id number] [place] [address]- 2752 Oct, [facility] [place] [facility] [address] [id number] [place] [address] 6304 Oct, [facility] [place] [facility] [address] [id number] [place] [address]- 4649 Sep, [facility] [place] [facility] [address] [id number] [place] [address]- 7729 Sep, [facility] [place] [facility] [address] [id number] [place] [address]- 7012 Sep, [facility] [place] [facility] [address] [id number] [place] [address]- 0778 Sep, [facility] [place] [facility] [address] [id number] [place] [address]- 4425 Sep, [facility] [place] [facility] [address] [id number] [place] [address] 1914 Sep, [facility] [place] [facility] [address] [id number] [place] [address]- 1470 Sep, [facility] [place] [facility] [address] [id number] [place] [address]- 1120 Sep, [facility] [place] [facility] [address] [id number] [place] [address]- 8787 Sep, [facility] [place] [facility] [address] [id number] [place] [address]- 9708 Sep, [facility] [place] [facility] [address] [id number] [place] [address]- 5030 August, [facility] [place] [facility] [address] [id number] [place] [address]- 2626 August, [facility] [place] [facility] [address] [id number] [place] [address]- 4445 August, [facility] [address] [id number] [place] [address]- 6821 August, [facility] [address] [id number] [place] [address]- 7438 August, [facility] [address] [id number] [place] [address]- 8173 August, [facility] [address] [id number] [place] [address]- 3227 August, [facility] [address] [id number] [place] [address]- 9524 August, [facility] [address] [id number] [place] [address]- 7153 August, [facility] [address] [id number] [place] [address]- 8123 August, [facility] [address] [id number] [place] [address]- 3757 August, [facility] [address] [id number] [place] [address]- 8074 August, [facility] [address] [id number] [place] [address]- 5382 Jul, [facility] [place] [facility] [address] [id number] [place] [address]- 5409 Jul, [facility] [address] [id number] [place] [address]- 2182 Jul, [facility] [place] [facility] [address] [id number] [place] [address]- 5307 Jul, [facility] [place] [facility] [address] [id number] [place] [address]- 1307 Jul, [facility] [place] [facility] [address] [id number] [place] [address]- 0574 Jul, [facility] [place] [facility] [address] [id number] [place] [address]- 9565 Jun, [facility] [place] [facility] [address] [id number] [place] [address]- 5352 Jun, [facility] [place] [facility] [address] [id number] [place] [address]- 1107 May, [facility] [place] [facility] [address] [id number] [place] [address]- 9192 May, [facility] [place] [facility] [address] [id number] [place] [address]- 5824 Apr, [facility] [place] [facility] [address] [id number] [place] [address]- 0247 Apr, [facility] [place] [facility] [address] [id number] [place] [address]- 7937 Apr, [facility] [place] [facility] [address] [id number] [place] [address]- 6329 Apr, [facility] [place] [facility] [address] [id number] [place] [address]- 6323 Apr, [facility] [place] [facility] [address] [id number] [place] [address]- 0390 Apr, [facility] [place] [facility] [address] [id number] [place] [address]- 6449 Apr, [facility] [place] [facility] [address] [id number], [place] [address] 4904 Apr, [facility] [place] [facility] [address] [id number] [place] [address]- 1065 Apr, [facility] [place] [facility] [address] [id number] [place] [address]- 6703 Apr, [facility] [place] [facility] [address] [id number] [place] [address]- 6710 Apr, [facility] [place] [facility] [address] [id number], [place] [address]- [address] Apr, [facility] [address] [id number] [place] [address]- 8113 Apr, [facility] [place] [facility] [address] [id number] [place] [address]- 5286 Mar, [facility] [place] [facility] [address] [id number] [place] [address]- 2422 Mar, [facility] [place] [facility] [address] [id number] [place] [address]- 5998 Mar, [facility] [place] [facility] [address] [id number] [place] [address]- 2590 Mar, [facility] [place] [facility] [address] [id number] [place] [address]- 2893 Feb, [facility] [place] [facility] [address] [id number] [place] [address]- 6198 Feb, [facility] [place] [facility] [address] [id number] [place] [address]- 0192 Feb, [facility] [place] [facility] [address] [id number] [place] [address]- 2528 Feb, [facility] [place] [facility] [address] [id number] [place] [address]- 8900 14 Jan, 2013 [facility] [place] [facility] [address] [id number], [place] [address]- 2484 14 Jan, 2013 [facility] [place] [facility] [address] [id number], [place] [address]- 4463 11 Jan, 2013 [facility] [place] [facility] [address] [id number], [place] [address]- 5742 11 Jan, 2013 [facility] [place] [facility] [address] [id number], [place] [address]- 2769 10 Jan, 2013 [facility] [place] [facility] [address] [id number], [place] [address]- 7977 10 Jan, 2013 [facility] [place] [facility] [address] [id number] [place] [address]- 5219 Jan, [facility] [place] [facility] [address] [id number] [place] [address]- 0425 Jan, [facility] [place] [facility] [address] [id number] [place] [address]- 8279 Jan, [facility] [place] [facility] [address] [id number] [place] [address]- 7168 Dec, [facility] [place] [facility] [address] [id number] [place] [address]- 7743 Dec, [facility] [place] [facility] [address] [id number] [place] [address]- 2126 Dec, [facility] [place] [facility] [address] [id number] [place] [address]- 0788 Dec, [facility] [place] [facility] [address] [id number] [place] [address]- 8046 Nov, [facility] [place] [facility] [address] [id number] [place] [address]- 2657 Nov, [facility] [place] [facility] [address] [id number] [place] [address]- 2103 Nov, [facility] [place] [facility] [address] [id number] [place] [address]- 9205 Nov, [facility] [place] [facility] [address] [id number] [place] [address]- 6267 Oct, [facility] [place] [facility] [address] [id number] [place] [address]- 7735 Sep, [facility] [place] [facility] [address] [id number] [place] [address]- 4656 August, [facility] [place] [facility] [address] [id number] [place] [address]- 6410 August, [facility] [place] [facility] [address] [id number] [place] [address]- 8026 August, [facility] [address] [id number] [place] [address]- 7307 August, [facility] [address] [id number] [place] [address]- 9135 August, [facility] [address] [id number] [place] [address]- 5415 August, [facility] [address] [id number] [place] [address]- 4429 August, [facility] [address] [id number] [place] [address]- 7237 August, [facility] [address] [id number] [place] [address]- 7974 August, [facility] [address] [id number] [place] [address]- 0428 August, [facility] [address] [id number] [place] [address]- 2856 August, [facility] [address] [id number] [place] [address]- 0792 August, [facility] [address] [id number] [place] [address]- 5862 Jul, [facility] [address] [id number] [place] [address]- 7896 Jul, [facility] [place] [facility] [address] [id number], [place] [address]- 8921 18 Jul, 2012 [facility] [place] [facility] [address] [id number] [place] [address]- 5375 15 Jul, 2012 [facility] [place] [facility] [address] [id number] [place] [address]- 6619 Jul, [facility] [place] [facility] [address] [id number] [place] [address]- 0108 Jul, [facility] [address] [id number] [place] [address]- 2167 Jul, [facility] [address] [id number] [place] [address]- 5436 Jul, [facility] [place] [facility] [address] [id number] [place] [address] 2546 Jul, [facility] [address] [id number] [place] [address]- 7116 Jul, [facility] [place] [facility] [address] [id number] [place] [address] 2544 Jul, [facility] [address] [id number] [place] [address]- 8899 Jun, [facility] [address] [id number] [place] [address]- 0499 Jun, [facility] [address] [id number] [place] [address]- 4752 Jun, [facility] [address] [id number] [place] [address]- 9054 Jun, [facility] [address] [id number] [place] [address]- 5119 May, [facility] [address] [facility] [id number] [place] [address]- 3561 May, [facility] [place] [facility] [address] [id number] [place] [address] 2546 May, [facility] [address] [id number] [place] [address]- 2542 May, [facility] [place] [facility] [address] [id number] [place] [address]- 8776 May, [facility] [place] [facility] [address] [id number] [place] [address]- 2546 May, [facility] [place] [facility] [address] [id number] [place] [address]- 6485 31 Apr, 2012 [facility] [place] [facility] [address] [id number] [place] [address]- 2662 31 Apr, 2012 [facility] [place] [facility] [address] [id number] [place] [address]- 3186 30 Apr, 2012 [facility] [place] [facility] [address] [id number] [place] [address]- 3940 28 Apr, 2012 [facility] [place] [facility] [address] [id number] [place] [address]- 5532 15 Mar, 2012 [facility] [place] [facility] [address] [id number] [place] [address]- 3414 14 Mar, 2012 [facility] [place] [facility] [address] [id number] [place] [address]- 1365 14 Mar, 2012 [facility] [place] [facility] [address] [id number] [place] [address]- 6227 14 Mar, 2012 [facility] [place] [facility] [address] [id number] [place] [address]- 5853 14 Mar, 2012 [facility] [place] [facility] [address] [id number] [place] [address]- 0093 Mar, [facility] [place] [facility] [address] [id number] [place] [address]- 2249 06 Mar, 2012 [facility] [place] [facility] [address] [id number] [place] [address]- 2505 Feb, [facility] [place] [facility] [address] [id number], [place] [address]- 2523 Feb, [facility] [place] [facility] [address] [id number] [place] [address]- 6833 Feb, [facility] [place] [facility] [address] [id number] [place] [address]- 0339 Feb, [facility] [place] [facility] [address] [id number] [place] [address]- 9391 Jan, [facility] [place] [facility] [address] [id number] [place] [address]- 9039 11 Jan, 2012 [facility] [place] [facility] [address] [id number] [place] [address]- 4918 Jan, [facility] [place] [facility] [address] [id number] [place] [address]- 2671 Jan, [facility] [place] [facility] [address] [id number] [place] [address]- 7381 Jan, [facility] [place] [facility] [address] [id number] [place] [address]- 3408 Jan, [facility] [place] [facility] [address] [id number] [place] [address]- 1112 Dec, [facility] [place] [facility] [address] [id number] [place] [address]- 7797 Dec, [facility] [place] [facility] [address] [id number] [place] [address]- 5926 Nov, [facility] [place] [facility] [address] [id number] [place] [address]- 5946 Sep, [facility] [place] [facility] [address] [id number] [place] [address]- 0205 August, [facility] [place] [facility] [address] [id number] [place] [address]- 9590 August, [facility] [place] [facility] [address] [id number] [place] [address]- 7921 August, [facility] [place] [facility] [address] [id number] [place] [address]- 4888 August, [facility] [place] [facility] [address] [id number] [place] [address]- 1208 August, [facility] [place] [facility] [address] [id number] [place] [address]- 9261 Jun, [facility] [place] [facility] [address] [id number] [place] [address]- 2940 Jun, [facility] [place] [facility] [address] [id number] [place] [address]- 0752 Apr, [facility] [place] [facility] [address] [id number] [place] [address]- 8278 Apr, [facility] [place] [facility] [address] [id number] [place] [address]- 2466 Mar, [facility] [place] [facility] [address] [id number] [place] [address]- 2465 Feb, [facility] [place] [facility] [address] [id number] [place] [address]- 2372 Feb, [facility] [place] [facility] [address] [id number] [place] [address]- 1354 Feb, [facility] [place] [facility] [address] [id number] [place] [address]- 3416 17 Jan, 2011 [facility] [place] [facility] [address] [id number] [place] [address]- 2294 15 Jan, 2011 [facility] [place] [facility] [address] [id number] [place] [address]- 0308 Jan, [facility] [place] [facility] [address] [id number] [place] [address]- 4151 14 Jan, 2011 [facility] [place] [facility] [address] [id number] [place] [address]- 9959 15 May, 2010 [facility] [place] [facility] [address] [id number] [place] [address]- 2936 Mar, [facility] [place] [facility] [address] [id number] [place] [address]- 9187 Oct, [facility] [place] [facility] [address] [id number] [place] [address]- 4279 Sep, [facility] [place] [facility] [address] [id number] [place] [address]- 2241 Mar, [facility] [place] [facility] [address] [id number] [place] [address] 4286 Jan, [facility] [address] [facility] [id number] [place] [address]- 2546 Jan, [facility] [address] [facility] [id number] [place] [address]- 2546 May, IMMUNIZATIONS No Known Immunizations SOCIAL HISTORY Never Assessed REASON FOR VISIT Controlled Med Refill PLAN OF CARE VITAL SIGNS MEDICATIONS Medication Instructions Dosage Frequency Start Date End Date Duration Status Hydrocodone-Acetaminophen 5-325 MG Orally 3 -4 times a day prn. must last 4 weeks-Must have appt for refills 1 tablet as needed Oct, 28 days [...]
--- OUTSIDE RECORDS SUMMARY | 2018-06-10 05:26 | XMS REPORT ---
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 Phone SIMA HODGES Unavailable PROBLEMS Type Condition ICD9-CM Code [id number] Code Onset Dates Condition Status SNOMED Code Problem Abnormal glucose R73.09 Active 882290681 Problem Anxiety F41.9 Active 56779174 Problem Neuroforaminal stenosis of spine M99.89 Active 670779034063 Problem Abnormal ultrasound of uterus R93.5 Active 651140370 Problem Abnormal MRI, shoulder R93.8 Active 282285356 Problem Chronic pain due to trauma G89.21 Active 612960261 Problem Essential hypertension I10 Active 42831530 Problem Neck pain M54.2 Active 14570484 Problem Hypokalemia E87.6 Active 25544516 Problem Mixed hyperlipidemia E78.2 Active 23229833 ALLERGIES Substance Reaction Event Type Date Status Macrobid rash Drug Allergy Dec, Active Cipro hives Drug Allergy Dec, Active Baclofen Unknown Drug Allergy Dec, Active Amitriptyline HCl dizziness Drug Allergy Dec, Active Peanut Unknown Non Drug Allergy Dec, Active ENCOUNTERS Encounter Location Date Diagnosis [facility] [id number] [address] August, [place] [id number] [place] [address] 62277- 1111 Jul, Neuroforaminal stenosis of spine M99.89 [facility] [id number] [place] [address] 15595- 7429 Jul, Lateral epicondylitis, right elbow M77.11 [place] [address] [address] Jul, [facility] [id number] [place] [address] 11573- 8694 Jun, High ankle sprain of right lower extremity, initial encounter S93.431A [facility] [id number] [place] [address] 27632- 9046 Jun, Essential hypertension I10 [facility] [id number] [place] [address] 36518- 1071 Jun, [facility] [facility] [id number] [place] [address] 94161- 6164 Jun, [facility] [id number] [place] [address] 40788- 2441 Jun, Neuroforaminal stenosis of spine M99.89 [facility] [id number] [place] [address] 61244- 8632 Jun, Pain of right upper extremity M79.601 and Essential hypertension I10 [facility] [facility] [address] 30997- 8142 Jun, [facility] [id number] [place] [address] 20768- 1191 Jun, Dysuria R30.0 ; Acute cystitis with hematuria N30.01 and Screen for STD (sexually transmitted disease) Z11.3 [facility] [id number] [place] [address] 00731- 1585 May, Chronic pain due to trauma G89.21 [facility] [id number] [place] [address] 91168- 7750 May, Essential hypertension I10 [facility] [facility] [id number] [place] [address] 51812- 1986 May, Neuroforaminal stenosis of spine M99.89 [facility] [id number] [place] [address] 75193- 1469 Apr, Allergic reaction, initial encounter T78.40XA [facility] [address] [place] [address] 1559 Apr, Low back pain, unspecified back pain laterality, unspecified chronicity, with sciatica presence unspecified M54.5 ; Acute cystitis with hematuria N30.01 ; Neuroforaminal stenosis of spine M99.89 ; Bilateral acute serous otitis media, recurrence not specified H65.03 ; Mixed hyperlipidemia E78.2 ; Essential hypertension I10 ; Immunization counseling Z71.89 and Encounter for immunization Z23 [facility] [facility] [address] 52263- 3493 Apr, Neck pain M54.2 [facility] [facility] [address] 00708- 4990 Mar, Neuroforaminal stenosis of spine M99.89 [facility] [facility] [address] 89726- 8969 Mar, Pharyngitis due to other organism J02.8 [facility] [address] 01499- 4100 Feb, Neuroforaminal stenosis of spine M99.89 [facility] [id number] [place] [address] 87903- 2916 08 Feb, 2017 UTI (urinary tract infection) N39.0 [facility] [id number] [place] [address] 36559- 1867 07 Feb, 2017 Recent urinary tract infection Z87.440 ; Neuroforaminal stenosis of spine M99.89 ; Neck pain M54.2 ; Chronic pain due to trauma G89.21 and Recurrent UTI N39.0 [facility] [id number] [place] [address] 32815- 8858 Feb, [facility] [address] 76030- 2008 Jan, Neuroforaminal stenosis of spine M99.89 [facility] [id number] [place] [address] 01296- 1511 Dec, Neuroforaminal stenosis of spine M99.89 [facility] [id number] [place] [address] 56871- 7388 18 Dec, 2016 Acute seasonal allergic rhinitis due to pollen J30.1 [facility] [id number] [place] [address] 06867- 5945 08 Dec, 2016 [facility] [id number] [place] [address] 23871- 6256 Dec, Acute seasonal allergic rhinitis, unspecified trigger J30.2 ; Allergic conjunctivitis of both eyes H10.13 and Dysfunction of both eustachian tubes H69.83 [facility] [facility] [address] 74187- 9720 Dec, [facility] [facility] [id number] [place] [address] 54286- 5267 Dec, Nevus D22.9 [facility] [address] 03542- 2772 Nov, Chronic pain due to trauma G89.21 and Neuroforaminal stenosis of spine M99.89 [facility] [id number] [place] [address] 29060- 8969 Nov, Neuroforaminal stenosis of spine M99.89 ; Essential hypertension I10 ; Mixed hyperlipidemia E78.2 ; Hypokalemia E87.6 ; Neck pain M54.2 and Nevus D22.9 [place] [id number] [place] [address] 35975- 5992 Oct, Neuroforaminal stenosis of spine M99.89 [facility] [id number] [place] [address] 55857- 3960 Sep, Neuroforaminal stenosis of spine M99.89 [facility] [id number] [place] [address] 27286- 1051 Sep, [facility] [facility] [id number] [place] [address] 60847- 2088 August, [facility] [id number] [address]- 7724 August, Neck pain M54.2 and Neuroforaminal stenosis of spine M99.89 [facility] [id number] [place] [address] 09259- 0721 August, Routine gynecological examination Z01.419 and Screening breast examination Z12.39 [facility] [id number] [place] [address] 77421- 6525 Jul, [facility] [id number] [place] [address] 68526- 7026 Jul, [facility] [id number] [place] [address] 16941- 2635 Jul, Neuroforaminal stenosis of spine M99.89 [facility] [id number] [place] [address] 86217- 3782 Jul, [facility] [id number] [place] [address] 28129- 0852 Jul, 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 [facility] [id number] [place] [address] 40655- 6612 Jul, [facility] [id number] [place] [address] 64176- 3902 Jul, [facility] [id number] [place] [address] 36639- 9626 Jun, Neuroforaminal stenosis of spine M99.89 [facility] [id number] [place] [address] 96883- 1671 Jun, Uterine leiomyoma, unspecified location D25.9 and Allergic reaction caused by a drug, initial encounter T78.40XA [facility] [id number] [place] [address] 41814- 8195 Jun, [facility] [id number] [place] [address] 30870- 9089 May, UTI symptoms R39.9 and Pain of right sacroiliac joint M53.3 [facility] [facility] [address] 49810- 5207 May, Neuroforaminal stenosis of spine M99.89 [facility] [id number] [place] [address] 24784- 0017 May, [facility] [address] 07748- 6630 May, Acute mucoid otitis media of left ear H65.112 and Acute non- recurrent maxillary sinusitis J01.00 [place] [address] 68013- 0531 May, Acute bacterial conjunctivitis of both eyes H10.33 ; Left arm pain M79.602 and Hypokalemia E87.6 [facility] [address] 52919- 5560 Apr, [facility] [address] 02578- 5127 Apr, Neuroforaminal stenosis of spine M99.89 ; Neck pain M54.2 ; Chronic pain due to trauma G89.21 ; Mixed hyperlipidemia E78.2 ; Essential hypertension I10 and Hypokalemia E87.6 [place] [place] [id number] [place] [address] 59671- 4765 Mar, Oral candidiasis B37.0 ; Neuroforaminal stenosis of spine M99.89 ; Neck pain M54.2 and Chronic pain due to trauma G89.21 [facility] [address] 98263- 1562 Feb, [place] [id number] [place] [address] 41588- 1750 Feb, [facility] [address] 95266- 0264 Feb, UTI (urinary tract infection) N39.0 [facility] [id number] [place] [address] 06284- 6578 Feb, Dysuria R30.0 [facility] [id number] [place] [address] 72265- 9908 Feb, Dysuria R30.0 [facility] [id number] [place] [address] 04424- 8717 Feb, Neuroforaminal stenosis of spine M99.89 ; Neck pain M54.2 ; Essential hypertension I10 ; Chronic pain due to trauma G89.21 ; Dysuria R30.0 ; Abnormal MRI, shoulder R93.8 and Acute cystitis without hematuria N30.00 [facility] [id number] [place] [address] 37159- 6392 Jan, [facility] [id number] [place] [address] 82687- 5274 Jan, [facility] [id number] [place] [address] 65242- 9443 Jan, [facility] [id number] [place] [address] 83939- 7787 Jan, Abnormal MRI R93.8 [facility] [id number] [place] [address] 80626- 4274 Dec, [facility] [id number] [place] [address] 41136 -2594 15 Dec, 2015 Acute pain of left shoulder M25.512 [facility] [address] [address]- 9512 Dec, [facility] [id number] [place] [address] 84708- 8571 08 Dec, 2015 [facility] [id number] [place] [address] 73012- 4500 Dec, Acute pain of left shoulder M25.512 [facility] [address] [facility] [id number] [address]- 9050 Nov, [facility] [address] [facility] [id number] [place] [address] 77995- 7740 Nov, Neuroforaminal stenosis of spine M99.89 ; Neck pain M54.2 ; Abnormal mammogram R92.8 ; Essential hypertension I10 and Chronic pain due to trauma G89.21 [facility] [address] [facility] [id number] [place] [address] 74632- 7823 Nov, [facility] [address] [facility] [id number] [address]- 8618 Oct, Acute stress disorder F43.0 [facility] [id number] [place] [address] 94891- 4841 Oct, [facility] [id number] [place] [address] 61382- 1378 Oct, [facility] [id number] [place] [address] 95034- 6496 Oct, [facility] [id number] [address]- 8014 Sep, [facility] [id number] [address]- 9747 August, [facility] [address] [address]- 9588 Jul, Neuroforaminal stenosis of spine M99.89 ; Neck pain M54.2 ; Abnormal mammogram R92.8 and Essential hypertension I10 [facility] [address] [facility] [id number] [address]- 3214 Jul, [facility] [id number] [place] [address] 64839- 3971 Jul, [facility] [id number] [address]- 9899 Jul, Abnormal mammogram R92.8 [facility] [address] [address]- 0737 08 Jul, 2015 [facility] [id number] [place] [address] 25253- 2801 Jul, UTI (urinary tract infection) N39.0 [facility] [address] 6720 Jul, Dysuria R30.0 [facility] [id number] [place] [address] 409461- 4927 Jun, [facility] [id number] [place] [address] 44593- 5102 Jun, [place] [id number] [place] [address] 54196- 6535 Jun, Hypokalemia E87.6 and Hematuria R31.9 [place] [id number] [place] [address] 62020- 5309 Jun, Hypokalemia E87.6 [facility] [address] [address]- 5582 Jun, [place] [id number] [place] [address] 43393- 2134 Jun, Hypokalemia E87.6 [facility] [address] [address]- 9961 Jun, Hypokalemia E87.6 [place] [address] [address]- 8265 15 Jun, 2015 Neuroforaminal stenosis of spine M99.89 ; Hypokalemia E87.6 ; Neck pain M54.2 ; Essential hypertension I10 ; Mixed hyperlipidemia E78.2 and Screening breast examination Z12.39 [facility] [id number] [address]- 8280 Jun, Dysuria R30.0 ; UTI (urinary tract infection) N39.0 and Hematuria R31.9 [facility] [id number] [place] [address] 05944- 7712 May, [facility] [address] 58189- 0069 18 May, 2015 High risk sexual behavior Z72.51 ; Hypokalemia E87.6 ; Neuroforaminal stenosis of spine M99.89 ; Neck pain M54.2 ; Essential hypertension I10 ; Mixed hyperlipidemia E78.2 ; STD exposure Z20.2 and Concern about STD in female without diagnosis Z71.1 [facility] [id number] [place] [address] 10988- 7747 16 May, 2015 Neuroforaminal stenosis of spine M99.89 ; Neck pain M54.2 ; Hypokalemia E87.6 ; Essential hypertension I10 and Mixed hyperlipidemia E78.2 [place] [id number] [place] [address] 78719- 3973 May, [facility] [id number] [place] [address] 90391 -8138 08 May, 2015 High risk sexual behavior Z72.51 ; STD exposure Z20.2 and Concern about STD in female without diagnosis Z71.1 [place] [id number] [place] [address] 76796- 3260 May, [place] [id number] [place] [address] 39339- 6813 Apr, Neuroforaminal stenosis of spine M99.89 ; Mixed hyperlipidemia E78.2 ; Essential hypertension I10 and Hypokalemia E87.6 [place] [id number] [place] [address] 09370- 6416 Mar, [place] [address] 24174- 2006 Mar, Hypokalemia E87.6 [facility] [address] 30818- 6613 Mar, Neuroforaminal stenosis of spine M99.89 ; Mixed hyperlipidemia E78.2 ; Neck pain M54.2 ; Essential hypertension I10 ; Abnormal fasting glucose R73.09 ; Hypokalemia E87.6 and Constipation K59.00 [facility] [id number] [place] [address] 11469- 3282 Feb, Neuroforaminal stenosis of spine M99.89 ; Mixed hyperlipidemia E78.2 ; Neck pain M54.2 ; Essential hypertension I10 ; Abnormal fasting glucose R73.09 ; Hypokalemia E87.6 and Constipation K59.00 [place] [id number] [place] [address] 95632- 7353 Feb, Elevated fasting blood sugar R73.01 [place] [id number] [place] [address] 53591- 7874 Feb, Elevated fasting blood sugar R73.01 [place] [address] 38268- 9005 Feb, Hair loss L65.9 [place] [address] 32793- 2333 Feb, Sinusitis J32.9 ; Essential hypertension I10 and Hair loss L65.9 [facility] [place] [id number] [place] [address] 60534- 3288 Jan, [place] [id number] [place] [address] 91548- 8993 Jan, Essential hypertension I10 ; Neuroforaminal stenosis of spine M99.89 ; Neck pain M54.2 ; Mixed hyperlipidemia E78.2 and Anxiety F41.9 [place] [id number] [place] [address] 87509- 5869 Jan, [place] [id number] [place] [address] 86879- 5179 Jan, Mixed hyperlipidemia E78.2 ; Essential (primary) hypertension I10 ; Strain of muscle, fascia and tendon at neck level, subsequent encounter S16.1XXD and Tension-type headache, unspecified, not intractable G44.209 [facility] [id number] [place] [address] 58067- 7866 Dec, Lumbar back pain 724.2 and Neuroforaminal stenosis of spine 724.00 [facility] [id number] [place] [address] 18340- 8687 Nov, [facility] [id number] [place] [address] 56222- 5173 Nov, Lumbar back pain 724.2 and Neuroforaminal stenosis of spine 724.00 [place] [id number] [place] [address] 39203- 8919 Nov, Edema 782.3 ; Lumbar back pain 724.2 ; Essential hypertension, benign 401.1 ; Hyperlipemia 272.4 ; Neuroforaminal stenosis of spine 724.00 and Post-concussion headache 339.20 [facility] [id number] [place] [address] 39176- 8051 Nov, [facility] [id number] [place] [address] 99890- 6651 Nov, [facility] [id number] [place] [address] 73342- 0611 Oct, Essential hypertension, benign 401.1 [facility] [id number] [place] [address] 04242- 4690 Oct, Edema 782.3 ; Lumbar back pain 724.2 ; Essential hypertension, benign 401.1 ; Hyperlipemia 272.4 ; Neuroforaminal stenosis of spine 724.00 and Post-concussion headache 339.20 [facility] [id number] [place] [address] 32080- 1892 Oct, [facility] [id number] [place] [address] 68617- 5389 Oct, Edema 782.3 [facility] [address] [place] [address]- 3320 Oct, Lumbar back pain 724.2 [facility] [id number] [place] [address] 32036- 6108 Oct, Cervicalgia 723.1 ; Lumbar back pain 724.2 and High risk medication use V58.69 [facility] [id number] [place] [address] 27983- 9182 Sep, [facility] [id number] [place] [address] 11692- 0397 Sep, Lumbar strain 847.2 [facility] [address] 64543- 7517 August, Edema 782.3 and Eustachian tube dysfunction 381.81 [facility] [id number] [place] [address] 39475- 4797 August, [facility] [id number] [place] [address] 21847- 3104 August, Eustachian tube dysfunction 381.81 [facility] [id number] [place] [address] 84327- 3688 Jul, Otalgia 388.70 and Otitis media 382.9 [facility] [id number] [place] [address] 21340- 7444 Jul, [facility] [id number] [place] [address] 16408- 5341 Jul, [facility] [id number] [place] [address] 25635- 9735 Jul, [facility] [id number] [place] [address] 97677- 3763 Jul, [facility] [id number] [place] [address]67- 6467 13 Jul, 2014 [facility] [id number] [place] [address]1497- 1132 Jun, [facility] [place] [facility] [address] [id number] [place] [address] Jun, [facility] [place] [facility] [address] [id number] [place] [address] Jun, [facility] [place] [facility] [address] [facility] [id number] [place] [address] May, 2014 [facility] [place] [facility] [address] [id number] [place] [address]- [address] May, 2014 [facility] [place] [facility] [address] [id number] [place] [address]- 2017 May, 2014 [facility] [place] [facility] [address] [facility] [id number] [place] [address]- [address] May, 2014 [facility] [place] [facility] [address] [facility] [id number] [place] [address]- [address]003 May, 2014 [facility] [place] [facility] [address] [facility] [id number] [place] [address]- 6029 May, 2014 [facility] [place] [facility] [address] [facility] [id number] [place] [address]- 1080 May, 2014 [facility] [place] [facility] [address] [facility] [id number] [place] [address]- 1629 May, [facility] [place] [facility] [address] [facility] [id number] [place] [address]- [address]674 May, 2014 [facility] [place] [facility] [address] [facility] [id number] [address] May, 2014 [facility] [place] [facility] [address] [facility] [id number] [place] [address]- [address]19 Apr, [facility] [place] [facility] [address] [facility] [id number] [place] [address]- [address] Apr, [facility] [place] [facility] [address] [facility] [id number] [place] [address]55 Apr, [facility] [place] [facility] [address] [id number] [place] [address]- 5911 Apr, [facility] [place] [facility] [address] [id number] [place] [address]- 9710 Apr, [facility] [place] [facility] [address] [id number] [place] [address]- 8029 Apr, [facility] [place] [facility] [address] [id number] [place] [address]- 1917 Apr, [facility] [place] [facility] [address] [id number] [place] [address]- 8556 Apr, [facility] [place] [facility] [address] [id number] [place] [address]- 1517 Apr, [facility] [place] [facility] [address] [id number] [place] [address]- 1465 Apr, [facility] [place] [facility] [address] [id number] [place] [address] Apr, [facility] [place] [facility] [address] [id number] [place] [address] 7410 Apr, [facility] [place] [facility] [address] [id number] [place] [address] 3007 Apr, [facility] [place] [facility] [address] [id number] [place] [address] 5132 Apr, [facility] [place] [facility] [address] [id number] [place] [address] 4764 Apr, [facility] [place] [facility] [address] [id number] [place] [address] 6419 Mar, [facility] [place] [facility] [address] [id number] [place] [address] 8192 Mar, [facility] [place] [facility] [address] [id number] [place] [address] 2703 Mar, [facility] [place] [facility] [address] [id number] [address] 46[address] Mar, [facility] [place] [facility] [address] [id number] [place] [address] Feb, [facility] [place] [facility] [address] [id number] [place] [address] 2697 Feb, [facility] [place] [facility] [address] [facility] [id number] [place] [address] 1463 Feb, [facility] [place] [facility] [address] [id number] [place] [address]- 6482 Feb, [facility] [place] [facility] [address] [id number] [place] [address] 4448 Jan, [facility] [place] [facility] [address] [id number] [place] [address]- 3025 Jan, [facility] [place] [facility] [address] [facility] [id number] [place] [address]- 5928 Jan, [facility] [place] [facility] [address] [id number] [address] 0716 Jan, [facility] [place] [facility] [address] [id number] [place] [address]- 0971 Jan, [facility] [place] [facility] [address] [id number] [place] [address]- 9481 Jan, [facility] [place] [facility] [address] [id number] [place] [address] 3687 Jan, [facility] [place] [facility] [address] [id number] [place] [address]- 2849 Jan, [facility] [place] [facility] [address] [id number] [place] [address]- 0278 Dec, [facility] [place] [facility] [address] [id number] [place] [address]- 1335 Dec, [facility] [place] [facility] [address] [facility] [id number] [place] [address] Dec, [facility] [place] [facility] [address] [id number] [place] [address]- 3289 04 Dec, 2013 [facility] [place] [facility] [address] [id number] [place] [address] 8443 Oct, 2013 [facility] [place] [facility] [address] [id number] [place] [address]- 2236 Oct, 2013 [facility] [place] [facility] [address] [id number] [place] [address]- 3855 Oct, 2013 [facility] [place] [facility] [address] [id number] [place] [address]- 3290 Oct, 2013 [facility] [place] [facility] [address] [id number] [place] [address]- 9672 Oct, [facility] [place] [facility] [address] [id number] [place] [address]- 5135 Oct, [facility] [place] [facility] [address] [id number] [place] [address]- 7189 Oct, [facility] [place] [facility] [address] [id number] [place] [address]- 2133 Oct, [facility] [place] [facility] [address] [id number] [place] [address]- 0833 Sep, [facility] [place] [facility] [address] [id number] [place] [address]- 5893 Sep, [facility] [place] [facility] [address] [id number] [place] [address]- 0864 Sep, [facility] [place] [facility] [address] [id number] [place] [address]- 2987 Sep, [facility] [place] [facility] [address] [id number] [place] [address]- 9675 Sep, [facility] [place] [facility] [address] [id number] [place] [address]- 0278 Sep, [facility] [place] [facility] [address] [id number] [place] [address]- 8498 Sep, [facility] [place] [facility] [address] [id number] [place] [address]- 0886 Sep, [facility] [place] [facility] [address] [id number] [place] [address]- 0779 Sep, [facility] [place] [facility] [address] [id number] [place] [address]- 1675 Sep, [facility] [place] [facility] [address] [id number] [place] [address]- 2337 August, [facility] [place] [facility] [address] [id number] [place] [address]- 7206 August, [facility] [place] [facility] [address] [id number] [place] [address]- 5510 August, [facility] [place] [facility] [address] [id number] [place] [address]- 5289 August, [facility] [place] [facility] [address] [id number] [place] [address]- 9609 August, [facility] [place] [facility] [address] [id number] [place] [address]- 9308 August, [facility] [place] [facility] [address] [id number] [place] [address]- 0388 August, [facility] [place] [facility] [address] [id number] [place] [address]- 9366 August, [facility] [place] [facility] [address] [id number] [place] [address]- 8528 August, [facility] [place] [facility] [address] [id number] [place] [address]- 6335 August, [facility] [place] [facility] [address] [id number] [place] [address]- 1264 August, [facility] [place] [facility] [address] [id number] [place] [address] August, [facility] [place] [facility] [address] [id number] [place] [address]- 2872 Jul, [facility] [place] [facility] [address] [id number] [place] [address]- 0859 Jul, [facility] [place] [facility] [address] [id number] [place] [address]- 9271 Jul, [facility] [place] [facility] [address] [id number] [place] [address]- 6664 Jul, [facility] [place] [facility] [address] [id number] [place] [address]- 3555 Jul, [facility] [place] [facility] [address] [id number] [place] [address]- 1106 Jul, [facility] [place] [facility] [address] [id number] [place] [address]- 3977 Jun, [facility] [place] [facility] [address] [id number] [place] [address]- 9438 Jun, [facility] [place] [facility] [address] [id number] [place] [address]- 5072 May, [facility] [place] [facility] [address] [id number] [place] [address]- 8673 May, [facility] [place] [facility] [address] [id number] [place] [address]- 2528 Apr, [facility] [place] [facility] [address] [id number] [place] [address]- 4194 Apr, [facility] [place] [facility] [address] [id number] [place] [address]- 3619 Apr, [facility] [place] [facility] [address] [id number] [place] [address]- 5570 Apr, [facility] [place] [facility] [address] [id number] [place] [address]- 8340 Apr, [facility] [place] [facility] [address] [id number] [place] [address]- 5943 Apr, [facility] [place] [facility] [address] [id number] [place] [address]- 2236 Apr, [facility] [place] [facility] [address] [id number] [place] [address]- 5578 Apr, [facility] [place] [facility] [address] [id number] [place] [address]- 6518 Apr, [facility] [place] [facility] [address] [id number] [place] [address]- 7251 Apr, [facility] [place] [facility] [address] [id number] [place] [address]- 3516 Apr, [facility] [place] [facility] [address] [id number] [place] [address]- 1239 Apr, [facility] [place] [facility] [address] [id number] [place] [address]- 1974 Apr, [facility] [place] [facility] [address] [id number] [place] [address]- 5625 Mar, [facility] [place] [facility] [address] [id number] [place] [address]- 3245 Mar, [facility] [place] [facility] [address] [id number] [place] [address]- 3803 Mar, [facility] [place] [facility] [address] [id number] [place] [address]- 8706 Mar, [facility] [place] [facility] [address] [id number] [place] [address]- 8426 Feb, [facility] [place] [facility] [address] [id number] [place] [address]- 7483 Feb, [facility] [place] [facility] [address] [id number] [place] [address]- 6045 Feb, [facility] [place] [facility] [address] [id number] [place] [address]- 7156 08 Feb, 2013 [facility] [place] [facility] [address] [id number] [place] [address]- 0855 14 Jan, 2013 [facility] [place] [facility] [address] [id number] [place] [address]- 0165 14 Jan, 2013 [facility] [place] [facility] [address] [id number] [place] [address]- 6392 11 Jan, 2013 [facility] [place] [facility] [address] [id number] [place] [address]- 0148 11 Jan, 2013 [facility] [place] [facility] [address] [id number] [place] [address]- 6027 10 Jan, 2013 [facility] [place] [facility] [address] [id number] [place] [address]- 6649 10 Jan, 2013 [facility] [place] [facility] [address] [id number] [place] [address]- 7223 Jan, [facility] [place] [facility] [address] [id number] [place] [address]- 3474 Jan, [facility] [place] [facility] [address] [id number] [place] [address]- 9109 Jan, [facility] [place] [facility] [address] [id number] [place] [address]- 7048 26 Dec, 2012 [facility] [place] [facility] [address] [id number] [place] [address]- 0823 16 Dec, 2012 [facility] [place] [facility] [address] [id number] [address]- 5617 16 Dec, 2012 [facility] [place] [facility] [address] [id number] [place] [address]- 4252 13 Dec, 2012 [facility] [place] [facility] [address] [id number] [place] [address]- 0019 17 Nov, 2012 [facility] [place] [facility] [address] [id number] [place] [address]- 0643 17 Nov, 2012 [facility] [place] [facility] [address] [id number] [place] [address]- 1463 14 Nov, 2012 [facility] [place] [facility] [address] [id number] [place] [address]- 5441 Nov, [facility] [address] [id number] [place] [address]- 8525 Oct, [facility] [address] [id number] [place] [address]- 3277 Sep, [facility] [address] [id number] [place] [address]- 9289 August, [facility] [address] [id number] [place] [address]- 2762 August, [facility] [address] [id number] [place] [address]- 0916 August, [facility] [address] [id number] [place] [address]- 1274 August, [facility] [address] [id number] [place] [address]- 0499 August, [facility] [address] [id number] [place] [address]- 1853 August, [facility] [address] [id number] [place] [address]- 5235 August, [facility] [address] [id number] [place] [address]- 4193 August, [facility] [address] [id number] [place] [address]- 4542 August, [facility] [address] [id number] [place] [address]- 5572 August, [facility] [address] [id number] [place] [address]- 3355 August, [facility] [address] [id number] [place] [address]- 6906 August, [facility] [address] [id number] [place] [address]- 5206 Jul, [facility] [address] [id number] [place] [address]- 4585 Jul, [facility] [address] [id number] [place] [address]- 4221 Jul, [facility] [address] [id number] [place] [address]- 7771 Jul, [facility] [address] [id number] [place] [address]- 7390 Jul, [facility] [address] [id number] [place] [address]- 5614 Jul, [facility] [address] [id number] [place] [address]- 1266 Jul, [facility] [address] [id number] [place] [address]- 2799 Jul, [facility] [address] [id number] [place] [address]- 8411 Jul, [facility] [address] [id number] [place] [address]- 2430 Jul, [facility] [address] [id number] [place] [address]- 2315 Jul, [facility] [address] [id number] [place] [address]- 9960 Jun, [facility] [address] [id number] [place] [address]- 3606 Jun, [facility] [address] [id number] [place] [address]- 9181 Jun, [facility] [place] [facility] [address] [id number] [place] [address]- 5696 Jun, [facility] [address] [id number] [place] [address]- 1673 May, [facility] [address] [id number] [place] [address]- 1172 14 May, 2012 [facility] [address] [id number] [place] [address]- 9596 05 May, 2012 [facility] [address] [id number] [place] [address]- 6316 04 May, 2012 [facility] [address] [id number] [place] [address]- 3176 May, [facility] [address] [id number] [place] [address]- 5176 May, [facility] [address] [id number] [place] [address]- 4942 Apr, [facility] [address] [id number] [place] [address]- 9391 Apr, [facility] [address] [id number] [place] [address]- 0019 Apr, [facility] [address] [id number] [place] [address]- 2570 Apr, [facility] [address] [id number] [place] [address]- 3113 15 Mar, 2012 [facility] [address] [id number] [place] [address]- 2858 14 Mar, 2012 [facility] [address] [id number] [place] [address]- 0806 14 Mar, 2012 [facility] [address] [id number] [place] [address]- 254 14 Mar, 2012 [facility] [address] [id number] [place] [address]- 8907 14 Mar, 2012 [facility] [address] [id number] [place]16 06 Mar, 2012 [facility] [address] [id number] [place] [address]- 6129 06 Mar, 2012 [facility] [place] [facility] [address] [id number] [place] [address]- 5828 Feb, [facility] [place] [facility] [address] [id number] [place] [address]- 7105 Feb, [facility] [place] [facility] [address] [id number] [place] [address]- 5395 Feb, [facility] [place] [facility] [address] [id number] [place] [address]- 7053 Feb, [facility] [place] [facility] [address] [id number] [place] [address]- 7621 Jan, [facility] [place] [facility] [address] [id number] [place] [address]- 2544 Jan, [facility] [place] [facility] [address] [id number] [place] [address]- 4781 Jan, [facility] [place] [facility] [address] [id number] [place] [address]- 4617 Jan, [facility] [place] [facility] [address] [id number] [place] [address]- 3336 Jan, [facility] [place] [facility] [address] [id number] [place] [address]- 1799 Jan, [facility] [place] [facility] [address] [id number] [place] [address]- 2163 Dec, [facility] [place] [facility] [address] [id number] [place] [address]- 9274 Dec, [facility] [place] [facility] [address] [id number] [place] [address]- 1968 Nov, [facility] [place] [facility] [address] [id number] [place] [address]- 0522 Sep, [facility] [place] [facility] [address] [id number] [place] [address]- 9207 August, [facility] [place] [facility] [address] [id number] [address]- 9666 August, [facility] [place] [facility] [address] [id number] [place] [address]- 9778 August, [facility] [place] [facility] [address] [id number] [place] [address]- 4889 August, [facility] [place] [facility] [address] [id number] [place] [address]- 3436 August, [facility] [place] [facility] [address] [id number] [place] [address]- 5358 Jun, [facility] [place] [facility] [address] [id number] [place] [address]- 2800 Jun, [facility] [place] [facility] [address] [id number] [place] [address]- 8567 Apr, [facility] [place] [facility] [address] [id number] [place] [address]- 6755 Apr, [facility] [place] [facility] [address] [id number] [place] [address]- 3486 Mar, [facility] [place] [facility] [address] [id number] [place] [address]- 3980 Feb, [facility] [place] [facility] [address] [id number] [place] [address]- 2864 14 Feb, 2011 [facility] [place] [facility] [address] [id number] [place] [address]- 1782 14 Feb, 2011 [facility] [place] [facility] [address] [id number] [address]- 1380 17 Jan, 2011 [facility] [place] [facility] [address] [id number] [place] [address]- 7350 15 Jan, 2011 [facility] [place] [facility] [address] [id number] [place] [address]- 7662 15 Jan, 2011 [facility] [place] [facility] [address] [id number] [place] [address]- 7022 14 Jan, 2011 [facility] [place] [facility] [address] [id number] [address] 2546 May, [facility] [address] [id number] [address]- 6016 Mar, [facility] [id number] [address] 2546 Oct, [facility] [id number] [address] Sep, [facility] [id number] [address] Mar, [facility] [id number] [address] Jan, [facility] [id number] [address] Jan, [facility] [id number] [address] May, IMMUNIZATIONS No Known Immunizations SOCIAL HISTORY Never Assessed REASON FOR VISIT procedure-removal of mole of left leg-Patrizia PLAN OF CARE Activity Details Follow Up regular follow up Reason: VITAL SIGNS Height 62 in 2016-12-14 Weight 167.8 lbs 2016-12-14 Temperature 98.4 degrees Fahrenheit 2016-12-14 Heart Rate 84 bpm 2016-12-14 Respiratory Rate 18 2016-12-14 BMI 30.69 kg/m2 2016-12-14 Blood pressure systolic 122 mmHg 2016-12-14 Blood pressure diastolic 74 mmHg 2016-12-14 MEDICATIONS Medication Instructions Dosage Frequency Start Date End Date Duration Status Ibuprofen 800 MG Orally PRN for pain 1 tablet as needed Active Amlodipine Besylate 5 mg Orally Once a day 1 tablet 24h Active Meclizine HCl 25 MG Orally Once a day 1 tablet as needed 24h Active Pravastatin Sodium 20 mg TAKE ONE TABLET BY MOUTH AT BEDTIME 30 Active Klor-Con 10 10 MEQ Orally Once a day 2 tablet with food 24h Active Cyclobenzaprine HCl 10 mg orally tid prn 1 tablet Active Hydrocodone-Acetaminophen 5-325 MG Orally 3 -4 times a day prn. must last 4 weeks 1 tablet as needed 29 Aug, 2017 28 days Active Triamterene-HCTZ 37.5-25 MG Orally Once a day 1 tablet in the morning 24h 30 Active RESULTS No Results PROCEDURES Procedure Date Ordered Result Body Site EXC BENIGN LEISON <0.5 cm (specify location) 2016-12-14 N/A EXC TR-EXT B9 IVANNA 0.5 < CM Dec 14, 2016 INSTRUCTIONS MEDICATIONS ADMINISTERED No Known Medications MEDICAL (GENERAL) HISTORY Type Description Date Medical History hypertension Medical History Colposcopy with loop electrode excision of the cervix was performed 06/2012, mild squamous atypia (no definite dyplasia). Performed at [facility] Dr. Joy. Medical History [...]
--- OUTSIDE RECORDS SUMMARY | 2018-06-10 05:26 | XMS REPORT ---
Author Author SIMA HODGES [facility] Address [address] [place] [address] Care Team Providers Care Floral Arranger Name Role Phone SIMA HODGES Unavailable PROBLEMS Type Condition ICD9-CM Code TMV24-TR Code Onset Dates Condition Status SNOMED Code Problem Anxiety F41.9 Active 79919318 Problem Abnormal glucose R73.09 Active 724979812 Problem Chronic pain due to trauma G89.21 Active 384394724 Problem Hypokalemia E87.6 Active 07444236 Problem Neck pain M54.2 Active 23410689 Problem Neuroforaminal stenosis of spine M99.89 Active 892274314361 Problem Mixed hyperlipidemia E78.2 Active 13847995 Problem Essential hypertension I10 Active [id number] ALLERGIES No Information ENCOUNTERS Encounter Location Date Diagnosis [facility] [id number] [place] [address] 30210- 6195 Oct, [place] [address] 35118- 4318 Sep, Essential hypertension I10 and Neuroforaminal stenosis of spine M99.89 [facility] [address] [place] [address] 48218- 4550 Sep, Abnormal glucose R73.09 [facility] [address] [place] [address] 33390- 0823 August, Lateral epicondylitis, right elbow M77.11 [place] [address] 30032- 7761 August, Screen for STD (sexually transmitted disease) Z11.3 [facility] [facility] [address] [place] [address] 16322- 1603 August, Neuroforaminal stenosis of spine M99.89 ; Mixed hyperlipidemia E78.2 ; Elevated fasting glucose R73.01 ; Screening mammogram, encounter for Z12.31 and Encounter for well woman exam without gynecological exam Z00.00 [facility] [address] [place] [address] 10080- 2352 August, Neuroforaminal stenosis of spine M99.89 [facility] [address] [place] [address] 25650- 1253 August, Essential hypertension I10 ; Hypokalemia E87.6 and Mixed hyperlipidemia E78.2 [facility] [facility] [address] [place] [address] 84680- 7023 Jul, [place] [address] 08007- 7157 Jul, Neuroforaminal stenosis of spine M99.89 [place] [address] 40503- 5451 Jul, Lateral epicondylitis, right elbow M77.11 [place] [address] 53451- 7987 Jul, [place] [address] 94345- 7545 Jun, High ankle sprain of right lower extremity, initial encounter S93.431A [facility] [address] [place] [address] 99694- 4671 Jun, Essential hypertension I10 [facility] [address] [place] [address] 84581- 1003 Jun, [place] [address] [place] [address] 52069- 8325 Jun, [place] [address] [place] [address] 74300- 1874 Jun, Neuroforaminal stenosis of spine M99.89 [facility] [address] 27356- 9955 Jun, Pain of right upper extremity M79.601 and Essential hypertension I10 [place] [address] 22980- 4104 Jun, [place] [address] 17922- 1481 Jun, Dysuria R30.0 ; Acute cystitis with hematuria N30.01 and Screen for STD (sexually transmitted disease) Z11.3 [place] [address] 41040- 5670 May, Chronic pain due to trauma G89.21 [place] [address] 55717- 2035 May, Essential hypertension I10 [address] 90294- 2608 May, Neuroforaminal stenosis of spine M99.[address] 18266- 3977 Apr, Allergic reaction, initial encounter T78.40XA [address] 15894- 4259 Apr, Low back pain, unspecified back pain laterality, unspecified chronicity, with sciatica presence unspecified M54.5 ; Acute cystitis with hematuria N30.01 ; Neuroforaminal stenosis of spine M99.89 ; Bilateral acute serous otitis media, recurrence not specified H65.03 ; Mixed hyperlipidemia E78.2 ; Essential hypertension I10 ; Immunization counseling Z71.89 and Encounter for immunization Z23 [facility] [address] 77244- 4227 Apr, Neck pain M54.[address] 36157- 2137 Mar, Neuroforaminal stenosis of spine M99.89 [place] [address] 00922- 3209 Mar, Pharyngitis due to other organism J02.8 [facility] [address] [place] [address] 10159- 5521 Feb, Neuroforaminal stenosis of spine M99.89 [facility] [address] [place] [address] 02453- 4441 Feb, UTI (urinary tract infection) N39.0 [facility] [address] 81943- 7911 Feb, Recent urinary tract infection Z87.440 ; Neuroforaminal stenosis of spine M99.89 ; Neck pain M54.2 ; Chronic pain due to trauma G89.21 and Recurrent UTI N39.0 [facility] [address] [place] [address] 62583- 4427 Feb, [facility] [address] [place] [address] 58959- 2761 Jan, Neuroforaminal stenosis of spine M99.89 [facility] [address] [place] [address] 33117- 0263 Dec, Neuroforaminal stenosis of spine M99.89 [facility] [address] [place] [address] 38942- 6115 18 Dec, 2016 Acute seasonal allergic rhinitis due to pollen J30.1 [facility] [address] [place] [address] 64436- 7145 Dec, [place] [address] [place] [address] 74296- 5611 08 Dec, 2016 Acute seasonal allergic rhinitis, unspecified trigger J30.2 ; Allergic conjunctivitis of both eyes H10.13 and Dysfunction of both eustachian tubes H69.83 [facility] [address] [place] [address] 34903- 7501 07 Dec, 2016 [facility] [address] [place] [address] 13030- 1270 Dec, Nevus D22.9 [facility] [address] [place] [address] 37062- 3291 Nov, Chronic pain due to trauma G89.21 and Neuroforaminal stenosis of spine M99.89 [facility] [address] [place] [address] 31715- 8183 Nov, Neuroforaminal stenosis of spine M99.89 ; Essential hypertension I10 ; Mixed hyperlipidemia E78.2 ; Hypokalemia E87.6 ; Neck pain M54.2 and Nevus D22.9 [facility] [address] [place] [address] 98516- 0435 Oct, Neuroforaminal stenosis of spine M99.89 [facility] [address] [place] [address] 92390- 4603 Sep, Neuroforaminal stenosis of spine M99.89 [facility] [address] [place] [address] 19664- 0830 Sep, [facility] [address] [place] [address] 42997- 5181 August, [facility] [address] [place] [address] 98039- 5205 August, Neck pain M54.2 and Neuroforaminal stenosis of spine M99.89 [facility] [address] [place] [address] 76714- 2554 August, Routine gynecological examination Z01.419 and Screening breast examination Z12.39 [facility] [address] [place] [address] 98796- 4710 Jul, [facility] [address] [place] [address] 06279- 0928 Jul, [facility] [address] [place] [address] 04030- 6007 Jul, Neuroforaminal stenosis of spine M99.89 [facility] [address] [place] [address] 60626- 9249 Jul, [facility] [address] [place] [address] 68118- 7571 Jul, 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 [facility] [address] [place] [address] 37335- 1339 Jul, [facility] [address] [place] [address] 51027- 4126 Jul, [facility] [address] [place] [address] 22908- 6147 Jun, Neuroforaminal stenosis of spine M99.89 [place] [facility] [address] [place] [address] 51066- 1994 Jun, Uterine leiomyoma, unspecified location D25.9 and Allergic reaction caused by a drug, initial encounter T78.40XA [facility] [address] [place] [address] 35013- 9214 Jun, [place] [address] [place] [address] 01665- 5111 May, UTI symptoms R39.9 and Pain of right sacroiliac joint M53.3 [place] [address] [place] [address] 68315- 9513 May, Neuroforaminal stenosis of spine M99.89 [facility] [address] [place] [address] 27038- 4988 May, [place] [address] [place] [address] 67522- 4477 May, Acute mucoid otitis media of left ear H65.112 and Acute non- recurrent maxillary sinusitis J01.00 [facility] [address] [address]- 4197 May, Acute bacterial conjunctivitis of both eyes H10.33 ; Left arm pain M79.602 and Hypokalemia E87.6 [place] [address] [place] [address] 73691- 5664 Apr, [place] [address] [place] [address] 72850- 9529 Apr, Neuroforaminal stenosis of spine M99.89 ; Neck pain M54.2 ; Chronic pain due to trauma G89.21 ; Mixed hyperlipidemia E78.2 ; Essential hypertension I10 and Hypokalemia E87.6 [place] [address] [place] [address] 08359- 5905 Mar, Oral candidiasis B37.0 ; Neuroforaminal stenosis of spine M99.89 ; Neck pain M54.2 and Chronic pain due to trauma G89.21 [place] [address] [place] [address] 66223- 2106 Feb, [place] [address] [place] [address] 89956- 7182 Feb, [place] [address] [place] [address] 80477- 4205 Feb, UTI (urinary tract infection) N39.0 [place] [address] [place] [address] 74666- 7716 09 Feb, 2016 Dysuria R30.0 [place] [address] [place] [address] 32313- 1618 Feb, Dysuria R30.0 [place] [address] [place] [address] 80310- 9698 02 Feb, 2016 Neuroforaminal stenosis of spine M99.89 ; Neck pain M54.2 ; Essential hypertension I10 ; Chronic pain due to trauma G89.21 ; Dysuria R30.0 ; Abnormal MRI, shoulder R93.8 and Acute cystitis without hematuria N30.00 [place] [address] [place] [address] 64557- 8138 Jan, [facility] [address] [address]- 2040 Jan, [facility] [address] [place] [address] 71808- 2763 Jan, [facility] [address] [place] [address] 42927- 5861 Jan, Abnormal MRI R93.8 [facility] [address] [place] [address] 34197- 0833 29 Dec, 2015 [facility] [address] [place] [address] 85427 -2739 15 Dec, 2015 Acute pain of left shoulder M25.512 [facility] [address] [place] [address] 43274- 8007 09 Dec, 2015 [facility] [address] [place] [address] 39375- 7619 08 Dec, 2015 [facility] [address] [place] [address] 11881- 3125 07 Dec, 2015 Acute pain of left shoulder M25.512 [facility] [address] [place] [address] 61366- 6003 23 Nov, 2015 [facility] [address] [place] [address] 72056- 4962 16 Nov, 2015 Neuroforaminal stenosis of spine M99.89 ; Neck pain M54.2 ; Abnormal mammogram R92.8 ; Essential hypertension I10 and Chronic pain due to trauma G89.21 [facility] [address] [place] [address] 77400- 8574 Nov, [facility] [address] [place] [address] 01741- 4648 Oct, Acute stress disorder F43.0 [facility] [address] [place] [address] 45631- 7548 Oct, [place] [address] [address]- 2330 Oct, [facility] [address] [address]- 7289 Oct, [facility] [address] [address]- 3797 Sep, [facility] [address] [place] [address] 44347- 1085 August, [facility] [address] [address]- 6742 Jul, Neuroforaminal stenosis of spine M99.89 ; Neck pain M54.2 ; Abnormal mammogram R92.8 and Essential hypertension I10 [facility] [address] [address]- 8207 Jul, [facility] [address] [address]- 0995 Jul, [facility] [address] [address]- 3496 Jul, Abnormal mammogram R92.8 [facility] [address] [place] [address] 54756- 6822 Jul, [facility] [address] [address]- 4027 Jul, UTI (urinary tract infection) N39.0 [facility] [address] [address]- 2393 Jul, Dysuria R30.0 [facility] [address] [address]- 5852 Jun, [facility] [address] [address]- 0507 Jun, [facility] [address] [address]- 9015 Jun, Hypokalemia E87.6 and Hematuria R31.9 [place] [address] [place] [address] 84476- 9573 Jun, Hypokalemia E87.6 [place] [address] [place] [address] 07862- 6694 Jun, [place] [address] [place] [address] 52038- 9485 Jun, Hypokalemia E87.6 [place] [address] [place] [address] 05630- 3097 Jun, Hypokalemia E87.6 [place] [address] [place] [address] 06493- 3945 Jun, Neuroforaminal stenosis of spine M99.89 ; Hypokalemia E87.6 ; Neck pain M54.2 ; Essential hypertension I10 ; Mixed hyperlipidemia E78.2 and Screening breast examination Z12.39 [place] [address] [place] [address] 86234- 8349 Jun, Dysuria R30.0 ; UTI (urinary tract infection) N39.0 and Hematuria R31.9 [place] [address] [place] [address] 77102- 8646 May, [place] [address] [place] [address] 57561- 6592 May, High risk sexual behavior Z72.51 ; Hypokalemia E87.6 ; Neuroforaminal stenosis of spine M99.89 ; Neck pain M54.2 ; Essential hypertension I10 ; Mixed hyperlipidemia E78.2 ; STD exposure Z20.2 and Concern about STD in female without diagnosis Z71.1 [place] [address] [place] [address] 91447- 1175 16 May, 2015 Neuroforaminal stenosis of spine M99.89 ; Neck pain M54.2 ; Hypokalemia E87.6 ; Essential hypertension I10 and Mixed hyperlipidemia E78.2 [facility] [address] [place] [address] 38181- 6330 11 May, 2015 [facility] [address] [place] [address] 91456 -6983 08 May, 2015 High risk sexual behavior Z72.51 ; STD exposure Z20.2 and Concern about STD in female without diagnosis Z71.1 [place] [address] [place] [address] 46585- 2090 May, [place] [address] [place] [address] 29191- 2333 Apr, Neuroforaminal stenosis of spine M99.89 ; Mixed hyperlipidemia E78.2 ; Essential hypertension I10 and Hypokalemia E87.6 [place] [address] [place] [address] 89056- 5746 Mar, [place] [address] [place] [address] 59374- 3611 Mar, Hypokalemia E87.6 [place] [id number] [place] [address] 85207- 2215 Mar, Neuroforaminal stenosis of spine M99.89 ; Mixed hyperlipidemia E78.2 ; Neck pain M54.2 ; Essential hypertension I10 ; Abnormal fasting glucose R73.09 ; Hypokalemia E87.6 and Constipation K59.00 [place] [address] [place] [address] 17816- 6509 Feb, Neuroforaminal stenosis of spine M99.89 ; Mixed hyperlipidemia E78.2 ; Neck pain M54.2 ; Essential hypertension I10 ; Abnormal fasting glucose R73.09 ; Hypokalemia E87.6 and Constipation K59.00 [place] [address] [place] [address] 99317- 4810 Feb, Elevated fasting blood sugar R73.01 [place] [address] [place] [address] 02075- 3253 Feb, Elevated fasting blood sugar R73.01 [place] [address] [place] [address] 19950- 1280 Feb, Hair loss L65.9 [place] [address] [place] [address] 20067- 2382 Feb, Sinusitis J32.9 ; Essential hypertension I10 and Hair loss L65.9 [place] [address] [place] [address] 07467- 2634 Jan, [place] [address] [place] [address] 92081- 3545 Jan, Essential hypertension I10 ; Neuroforaminal stenosis of spine M99.89 ; Neck pain M54.2 ; Mixed hyperlipidemia E78.2 and Anxiety F41.9 [place] [address] [place] [address] 90976- 1546 Jan, [place] [address] [place] [address] 28510- 1944 Jan, Mixed hyperlipidemia E78.2 ; Essential (primary) hypertension I10 ; Strain of muscle, fascia and tendon at neck level, subsequent encounter S16.1XXD and Tension-type headache, unspecified, not intractable G44.209 [place] [address] [place] [address] 13034- 8856 Dec, Lumbar back pain 724.2 and Neuroforaminal stenosis of spine 724.00 [place] [address] [place] [address] 57557- 8047 Nov, [place] [address] 78687- 7074 Nov, Lumbar back pain 724.2 and Neuroforaminal stenosis of spine 724.00 [place] [address] [place] [address] 41601- 8687 Nov, Edema 782.3 ; Lumbar back pain 724.2 ; Essential hypertension, benign 401.1 ; Hyperlipemia 272.4 ; Neuroforaminal stenosis of spine 724.00 and Post-concussion headache 339.20 [place] [address] [place] [address] 03242- 7359 Nov, [facility] [address] [place] [address] 94127- 6730 Nov, [place] [address] [place] [address] 78359- 7324 Oct, Essential hypertension, benign 401.1 [place] [address] [place] [address] 75862- 6404 Oct, Edema 782.3 ; Lumbar back pain 724.2 ; Essential hypertension, benign 401.1 ; Hyperlipemia 272.4 ; Neuroforaminal stenosis of spine 724.00 and Post-concussion headache 339.20 [place] [address] [place] [address] 96198- 5077 Oct, [facility] [address] [place] [address] 10624- 9037 Oct, Edema 782.3 [place] [address] [place] [address] 24579- 2327 Oct, Lumbar back pain 724.2 [place] [address] [place] [address] 66234- 6308 Oct, Cervicalgia 723.1 ; Lumbar back pain 724.2 and High risk medication use V58.69 [place] [address] [place] [address] 28590- 2523 Sep, [place] [address] [place] [address] 98774- 6645 Sep, Lumbar strain 847.2 [place] [address] [place] [address] 34974- 2908 August, Edema 782.3 and Eustachian tube dysfunction 381.81 [place] [address] [address]- 7574 August, [facility] [address] 3840 August, Eustachian tube dysfunction 381.81 [facility] [id number] [address] 2544 Jul, Otalgia 388.70 and Otitis media 382.9 [facility] [address] [place] [address]- 4503 Jul, [facility] [id number] [place] [address]- 8915 Jul, [facility] [address], [place] [address]- 1839 Jul, [facility] [id number] [address] Jul, [facility] [id number] [address] Jul, [facility] [id number] [address] Jun, [facility] [id number] [address] Jun, [facility] [id number] [address] 16 Jun, 2014 [facility] [id number] [address] May, [facility] [id number] [address] May, [facility] [id number] [address] May, [facility] [id number] [address] May, [facility] [place] [facility] [address] [id number] [place] [address] May, [facility] [place] [facility] [address] [id number] [place] [address] May, [facility] [place] [facility] [address] [id number] [place] [address] May, [facility] [place] [facility] [address] [id number] [place] [address] May, [facility] [place] [facility] [address] [id number] [place] [address] May, [facility] [place] [facility] [address] [id number] [place] [address] May, [facility] [place] [facility] [address] [id number] [place] [address] Apr, [facility] [place] [facility] [address] [id number] [place] [address] Apr, [facility] [place] [facility] [address] [id number] [place] [address] Apr, [facility] [place] [facility] [address] [id number] [place] [address]- [address] Apr, [facility] [place] [facility] [address] [id number] [place] [address] Apr, [facility] [place] [facility] [address] [id number] [address] Apr, [facility] [place] [facility] [address] [id number] [place] [address] Apr, [facility] [place] [facility] [address] [id number] [place] [address] 1984 Apr, [facility] [place] [facility] [address] [id number] [place] [address] Apr, [facility] [place] [facility] [address] [id number] [place] [address] Apr, [facility] [place] [facility] [address] [id number] [place] [address] Apr, [facility] [place] [facility] [address] [id number] [place] [address] Apr, [facility] [place] [facility] [address] [id number] [place] [address] Apr, [facility] [place] [facility] [address] [id number] [place] [address] Apr, [facility] [place] [facility] [address] [id number] [place] [address] Apr, [facility] [place] [facility] [address] [id number] [place] [address] 2008 Mar, [facility] [place] [facility] [address] [id number] [place] [address] 7099 Mar, [facility] [place] [facility] [address] [id number] [place] [address] 60[address] Mar, [facility] [place] [facility] [address] [id number] [place] [address] 7892 Mar, [facility] [place] [facility] [address] [id number] [place] [address] 8395 Feb, [facility] [place] [facility] [address] [id number] [place] [address] 4227 Feb, [facility] [place] [facility] [address] [id number] [place] [address]- 7971 Feb, [facility] [place] [facility] [address] [id number] [place] [address] 5720 Feb, [facility] [place] [facility] [address] [id number] [place] [address] 4638 Jan, [facility] [place] [facility] [address] [id number] [place] [address]- 5808 Jan, [facility] [place] [facility] [address] [id number] [place] [address]- 8114 Jan, [facility] [place] [facility] [address] [id number] [place] [address]- 3692 Jan, [facility] [place] [facility] [address] [id number] [place] [address] 3200 Jan, [facility] [place] [facility] [address] [id number] [place] [address]- 8816 Jan, [facility] [place] [facility] [address] [id number] [place] [address]- 8583 Jan, [facility] [place] [facility] [address] [id number] [place] [address] 8131 Jan, [facility] [place] [facility] [address] [id number] [place] [address]- 7765 Dec, [facility] [place] [facility] [address] [id number] [place] [address]- 7478 Dec, [facility] [place] [facility] [address] [id number] [place] [address]- 1770 Dec, [facility] [place] [facility] [address] [id number] [place] [address]- 8691 Dec, [facility] [place] [facility] [address] [id number] [place] [address]- 2416 Oct, [facility] [place] [facility] [address] [id number] [place] [address]- 0631 Oct, [facility] [place] [facility] [address] [id number] [place] [address]- 6604 Oct, [facility] [place] [facility] [address] [id number] [place] [address]- 5220 Oct, [facility] [place] [facility] [address] [id number] [place] [address]- 7611 Oct, [facility] [place] [facility] [address] [id number] [place] [address]- 2425 Oct, [facility] [place] [facility] [address] [id number] [place] [address]- 5365 Oct, [facility] [place] [facility] [address] [id number] [place] [address]- 5131 Oct, [facility] [place] [facility] [address] [id number] [place] [address]- 8438 Sep, [facility] [place] [facility] [address] [id number] [place] [address]- 1683 Sep, [facility] [place] [facility] [address] [id number] [place] [address]- 6323 Sep, [facility] [place] [facility] [address] [id number] [place] [address]- 3740 Sep, [facility] [place] [facility] [address] [id number] [place] [address]- 0206 Sep, [facility] [place] [facility] [address] [id number] [place] [address]- 6132 Sep, [facility] [place] [facility] [address] [id number] [place] [address]- 5906 Sep, [facility] [place] [facility] [address] [id number] [place] [address]- 9136 Sep, [facility] [place] [facility] [address] [id number] [place] [address]- 5474 Sep, [facility] [place] [facility] [address] [id number] [place] [address]- 3258 Sep, [facility] [place] [facility] [address] [id number] [place] [address]- 2716 August, [facility] [place] [facility] [address] [id number] [place] [address]- 4742 August, [facility] [place] [facility] [address] [id number] [place] [address]- 7641 August, [facility] [place] [facility] [address] [id number] [place] [address]- 4637 August, [facility] [address] [id number] [place] [address] 3403 August, [facility] [place] [facility] [address] [id number] [place] [address]- 3422 August, [facility] [place] [facility] [address] [id number] [place] [address] 6371 August, [facility] [address] [id number] [place] [address]- 7772 August, [facility] [place] [address] [id number] [place] [address]- 1716 August, [facility] [place] [address] [id number] [place] [address]- 0543 August, [facility] [place] [address] [id number] [place] [address]- 6026 August, [facility] [place] [address] [id number] [place] [address]- 9986 August, [facility] [address] [id number] [place] [address]- 3358 Jul, [facility] [place] [address] [id number] [place] [address]- 8236 Jul, [facility] [place] [facility] [address] [id number] [place] [address]- 0064 Jul, [facility] [place] [address] [id number] [place] [address]- 7462 Jul, [facility] [place] [facility] [address] [id number] [place] [address]- 2346 Jul, [facility] [place] [facility] [address] [id number] [place] [address]- 4734 Jul, [facility] [place] [facility] [address] [id number] [place] [address]- 1581 Jun, [facility] [place] [facility] [address] [id number] [place] [address]- 4646 Jun, [facility] [place] [facility] [address] [id number] [place] [address]- 7915 May, [facility] [place] [facility] [address] [id number] [place] [address]- 4861 May, [facility] [place] [facility] [address] [id number] [place] [address]- 0034 Apr, [facility] [place] [facility] [address] [id number] [place] [address]- 0948 Apr, [facility] [place] [facility] [address] [id number] [place] [address]- 2692 Apr, [facility] [place] [facility] [address] [id number] [place] [address]- 6850 Apr, [facility] [place] [facility] [address] [id number] [place] [address]- 3925 Apr, [facility] [place] [facility] [address] [id number] [place] [address]- 5506 Apr, [facility] [place] [facility] [address] [id number] [place] [address]- 8871 Apr, [facility] [place] [facility] [address] [id number] [place] [address]- 5835 Apr, [facility] [place] [facility] [address] [id number] [address]- 5598 Apr, [facility] [place] [facility] [address] [id number] [place] [address]- 1328 Apr, [facility] [place] [facility] [address] [id number] [place] [address]- 3670 Apr, [facility] [place] [facility] [address] [id number] [place] [address]- 4502 Apr, [facility] [place] [facility] [address] [id number], [place] [address]- 3929 Apr, [facility] [place] [facility] [address] [id number] [place] [address]- 2630 10 Mar, 2013 [facility] [place] [facility] [address] [id number] [place] [address]- 7855 Mar, [facility] [place] [facility] [address] [id number] [place] [address]- 7522 Mar, [facility] [place] [facility] [address] [id number] [place] [address]- 9264 Mar, [facility] [place] [facility] [address] [id number] [place] [address]- 1420 Feb, [facility] [place] [facility] [address] [id number] [place] [address]- 1763 Feb, [facility] [place] [facility] [address] [id number] [place] [address]- 6770 Feb, [facility] [place] [facility] [address] [id number] [place] [address]- 4652 Feb, [facility] [place] [facility] [address] [id number] [place] [address]- 7938 14 Jan, 2013 [facility] [place] [facility] [address] [id number] [place] [address]- 5291 14 Jan, 2013 [facility] [place] [facility] [address] [id number], [place] [address]- 1594 11 Jan, 2013 [facility] [place] [facility] [address] [id number], [place] [address]- 6427 11 Jan, 2013 [facility] [place] [facility] [address] [id number], [place] [address]- 1086 10 Jan, 2013 [facility] [place] [facility] [address] [id number], [place] [address]- 4582 10 Jan, 2013 [facility] [place] [facility] [address] [id number], [place] [address]- 7437 09 Jan, 2013 [facility] [place] [facility] [address] [id number] [place] [address]- 9795 Jan, [facility] [place] [facility] [address] [id number] [place] [address]- 7202 Jan, [facility] [place] [facility] [address] [id number] [place] [address]- 6666 Dec, [facility] [place] [facility] [address] [id number] [place] [address]- 7970 Dec, [facility] [place] [facility] [address] [id number] [place] [address]- 9789 16 Dec, 2012 [facility] [place] [facility] [address] [id number] [place] [address]- 4437 Dec, [facility] [place] [facility] [address] [id number] [place] [address]- 5761 Nov, [facility] [place] [facility] [address] [id number] [place] [address]- 9216 Nov, [facility] [place] [facility] [address] [id number] [place] [address]- 8517 Nov, [facility] [place] [facility] [address] [id number] [place] [address]- 9550 Nov, [facility] [place] [facility] [address] [id number] [place] [address]- 8916 Oct, [facility] [place] [facility] [address] [id number] [place] [address]- 7017 Sep, [facility] [place] [facility] [address] [id number] [place] [address]- 4019 August, [facility] [place] [facility] [address] [id number] [place] [address] August, [facility] [place] [facility] [address] [id number] [place] [address]- 5257 August, [facility] [place] [facility] [address] [id number] [place] [address]- 6316 August, [facility] [place] [address] [id number] [place] [address]- 6864 August, [facility] [address] [id number] [place] [address]- 9625 August, [facility] [address] [id number] [place] [address]- 0136 August, [facility] [address] [id number] [place] [address]- 6618 August, [facility] [address] [id number] [place] [address]- 0192 August, [facility] [address] [id number] [place] [address]- 9936 August, [facility] [place] [address] [id number] [place] [address]- 3858 August, [facility] [address] [id number] [place] [address]- 1070 August, [facility] [place] [address] [id number] [place] [address]- 5610 Jul, [facility] [address] [id number] [place] [address]- 3474 Jul, [facility] [address] [id number] [place] [address]- 7699 18 Jul, 2012 [facility] [place] [facility] [address] [id number] [address]- 0141 15 Jul, 2012 [facility] [place] [facility] [address] [id number] [place] [address]- 1677 Jul, [facility] [place] [facility] [address] [id number] [place] [address]- 2993 Jul, [facility] [place] [facility] [address] [id number] [place] [address]- 2711 Jul, [facility] [address] [id number] [place] [address]- 9077 Jul, [facility] [address] [id number] [place] [address]- 5490 Jul, [facility] [place] [facility] [address] [id number] [place] [address] 2546 Jul, [facility] [address] [id number] [place] [address]- 0516 Jul, [facility] [place] [facility] [address] [id number] [place] [address]- 8773 Jun, [facility] [address] [id number] [place] [address]- 0258 Jun, [facility] [place] [facility] [address] [facility] [id number] [place] [address]- 9706 Jun, [facility] [address] [facility] [id number] [place] [address]- 0288 Jun, [facility] [address] [id number] [place] [address]- 0391 May, [facility] [address] [id number] [place] [address]- 1593 May, [facility] [place] [address] [facility] [id number] [place] [address]- 2546 May, [facility] [place] [facility] [address] [id number] [place] [address]- 2546 May, [facility] [place] [facility] [address] [id number] [place] [address]- 2546 May, [facility] [place] [facility] [address] [id number] [place] [address]- 2546 May, [facility] [place] [facility] [address] [facility] [id number] [place] [address]- 2546 Apr, [facility] [place] [facility] [address] [facility] [id number] [place] [address]- 0723 31 Apr, 2012 [facility] [place] [facility] [address] [id number] [place] [address]- 5814 30 Apr, 2012 [facility] [place] [facility] [address] [id number] [place] [address]- 5976 28 Apr, 2012 [facility] [place] [facility] [address] [id number] [place]13 15 Mar, 2012 [facility] [place] [facility] [address] [id number] [place] [address]- 6361 14 Mar, 2012 [facility] [place] [facility] [address] [id number] [place] [address]- 3595 14 Mar, 2012 [facility] [place] [facility] [address] [id number] [place] [address]- 9200 14 Mar, 2012 [facility] [place] [facility] [address] [id number] [place] [address]- 9790 Mar, [facility] [place] [facility] [address] [id number] [place] [address]- 2381 06 Mar, 2012 [facility] [place] [facility] [address] [id number] [place] [address]- 9549 Mar, [facility] [place] [facility] [address] [id number] [place] [address]- 6356 Feb, [facility] [place] [facility] [address] [id number], [place] [address]- 9634 Feb, [facility] [place] [facility] [address] [id number], [place] [address]- 3376 Feb, [facility] [place] [facility] [address] [id number] [place] [address]- 3066 Feb, [facility] [place] [facility] [address] [id number], [place] [address]- 7700 Jan, [facility] [place] [facility] [address] [id number] [place] [address]- 0563 Jan, [facility] [place] [facility] [address] [id number] [place] [address]- 1913 10 Jan, 2012 [facility] [place] [facility] [address] [id number] [place] [address]- 8691 Jan, [facility] [place] [facility] [address] [id number] [place] [address]- 3933 Jan, [facility] [place] [facility] [address] [id number] [place] [address]- 2552 Jan, [facility] [place] [facility] [address] [id number] [place] [address]- 8116 Dec, [facility] [place] [facility] [address] [id number] [place] [address]- 0016 Dec, [facility] [place] [facility] [address] [id number] [place] [address]- 9612 Nov, [facility] [place] [facility] [address] [id number] [place] [address]- 2329 Sep, [facility] [place] [facility] [address] [id number] [place] [address]- 0742 August, [facility] [place] [facility] [address] [id number] [place] [address]- 3093 August, [facility] [place] [facility] [address] [id number] [place] [address]- 7214 August, [facility] [place] [facility] [address] [id number] [place] [address]- 3393 August, [facility] [place] [facility] [address] [id number] [place] [address]- 3063 August, [facility] [place] [facility] [address] [id number] [place] [address]- 4368 Jun, [facility] [place] [facility] [address] [id number] [place] [address]- 3235 Jun, [facility] [place] [facility] [address] [id number] [place] [address]- 7365 Apr, [facility] [place] [facility] [address] [id number] [place] [address]- 5556 Apr, [facility] [place] [facility] [address] [id number] [place] [address]- 2452 23 Mar, 2011 [facility] [place] [facility] [address] [id number] [place] [address]- 1413 Feb, [facility] [place] [facility] [address] [id number] [place] [address]- 8418 14 Feb, 2011 [facility] [place] [facility] [address] [id number] [place] [address]- 0338 14 Feb, 2011 [facility] [place] [facility] [address] [id number] [place] [address]- 1055 17 Jan, 2011 [facility] [place] [facility] [address] [id number] [place] [address]- 2296 15 Jan, 2011 [facility] [place] [facility] [address] [id number] [place] [address]- 0343 15 Jan, 2011 [facility] [place] [facility] [address] [id number] [place] [address]- 7211 14 Jan, 2011 [facility] [place] [facility] [address] [id number] [place] [address] 15 May, 2010 [facility] [place] [facility] [address] [id number] [place] [address] 04 Mar, 2010 [facility] [place] [facility] [address] [id number] [place] [address] Oct, [facility] [place] [facility] [address] [id number] [place] [address] 14 Sep, 2009 [facility] [place] [facility] [address] [id number] [place] [address] Mar, [facility] [place] [facility] [address] [id number] [place] [address] 27 Jan, 2009 [facility] [place] [facility] [address] [id number] [place] [address] Jan, [facility] [address] [id number] [place] [address] May, IMMUNIZATIONS No Known Immunizations SOCIAL HISTORY Never Assessed REASON FOR VISIT Refill request PLAN OF CARE VITAL SIGNS MEDICATIONS Medication Instructions Dosage Frequency Start Date End Date Duration Status Cyclobenzaprine HCl 10 mg orally tid prn 1 tablet 6 May, 2017 28 days Active RESULTS No Results PROCEDURES [...]
--- OUTSIDE RECORDS SUMMARY | 2018-06-10 05:27 | XMS REPORT ---
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 Name Role Phone SIMA HODGES Unavailable PROBLEMS Type Condition ICD9-CM Code OOS55-HA Code Onset Dates Condition Status SNOMED Code Problem Abnormal glucose R73.09 Active 892817913 Problem Anxiety F41.9 Active 90068339 Problem Neuroforaminal stenosis of spine M99.89 Active 336779951971 Problem Abnormal ultrasound of uterus R93.5 Active 010620726 Problem Abnormal MRI, shoulder R93.8 Active 545630054 Problem Chronic pain due to trauma G89.21 Active 281263578 Problem Essential hypertension I10 Active 35059912 Problem Neck pain M54.2 Active 76964900 Problem Hypokalemia E87.6 Active 91679898 Problem Mixed hyperlipidemia E78.2 Active [id number] ALLERGIES No Information ENCOUNTERS Encounter Location Date Diagnosis [facility] [id number] [place] [address] 97760- 9970 Jul, [facility] [id number] [place] [address] 71457- 1892 Jun, Essential hypertension I10 [facility] [id number] [place] [address] 65144- 1043 Jun, [facility] [id number] [place] [address] 44525- 9284 Jun, [facility] [id number] [place] [address] 72339- 6644 Jun, [facility] [id number] [place] [address] 69343- 8285 Jun, Neuroforaminal stenosis of spine M99.89 [facility] [id number] [place] [address] 4998 Jun, Pain of right upper extremity M79.601 and Essential hypertension I10 [facility] [address] 36889- 5881 Jun, [facility] [facility] [address] 22237- 1920 Jun, Dysuria R30.0 ; Acute cystitis with hematuria N30.01 and Screen for STD (sexually transmitted disease) Z11.3 [facility] [address] 20788- 2643 May, Chronic pain due to trauma G89.21 [facility] [address] 05989- 8293 May, Essential hypertension I10 [facility] [facility] [address] 86382- 5356 May, Neuroforaminal stenosis of spine M99.89 [facility] [address] 27490- 5898 Apr, Allergic reaction, initial encounter T78.40XA [facility] [id number] [place] [address] 51411- 4139 Apr, Low back pain, unspecified back pain laterality, unspecified chronicity, with sciatica presence unspecified M54.5 ; Acute cystitis with hematuria N30.01 ; Neuroforaminal stenosis of spine M99.89 ; Bilateral acute serous otitis media, recurrence not specified H65.03 ; Mixed hyperlipidemia E78.2 ; Essential hypertension I10 ; Immunization counseling Z71.89 and Encounter for immunization Z23 [facility] [address] 04309- 2214 Apr, Neck pain M54.2 [facility] [id number] [place] [address] 12682- 1029 Mar, Neuroforaminal stenosis of spine M99.89 [facility] [id number] [place] [address] 92262- 9768 Mar, Pharyngitis due to other organism J02.8 [facility] [id number] [place] [address] 76582- 8731 Feb, Neuroforaminal stenosis of spine M99.89 [facility] [address], [place] [address] 9501 Feb, UTI (urinary tract infection) N39.0 [facility] [id number] [place] [address] 85462- 3165 Feb, Recent urinary tract infection Z87.440 ; Neuroforaminal stenosis of spine M99.89 ; Neck pain M54.2 ; Chronic pain due to trauma G89.21 and Recurrent UTI N39.0 [facility] [address] [address]- 8529 Feb, [facility] [id number] [place] [address] 40540- 3967 Jan, Neuroforaminal stenosis of spine M99.89 [facility] [id number] [place] [address] 51845- 5369 Dec, Neuroforaminal stenosis of spine M99.89 [facility] [address] [address]- 0592 18 Dec, 2016 Acute seasonal allergic rhinitis due to pollen J30.1 [facility] [id number] [place] [address] 65784- 9021 Dec, [facility] [address], [place] [address]- 7163 Dec, Acute seasonal allergic rhinitis, unspecified trigger J30.2 ; Allergic conjunctivitis of both eyes H10.13 and Dysfunction of both eustachian tubes H69.83 [facility] [address], [place] [address] 0900 Dec, [facility] [id number] [place] [address] 29415- 2914 Dec, Nevus D22.9 [facility] [id number] [place] [address] 98239- 5266 Nov, Chronic pain due to trauma G89.21 and Neuroforaminal stenosis of spine M99.89 [facility] [id number] [place] [address] 65187- 4693 Nov, Neuroforaminal stenosis of spine M99.89 ; Essential hypertension I10 ; Mixed hyperlipidemia E78.2 ; Hypokalemia E87.6 ; Neck pain M54.2 and Nevus D22.9 [facility] [id number] [place] [address] 55014- 0705 Oct, Neuroforaminal stenosis of spine M99.89 [facility] [id number] [place] [address] 65022- 2495 Sep, Neuroforaminal stenosis of spine M99.89 [facility] [id number] [place] [address] 20580- 9668 Sep, [facility] [id number] [place] [address] 66481- 0589 August, [facility] [id number] [place] [address] 95307- 2951 August, Neck pain M54.2 and Neuroforaminal stenosis of spine M99.89 [facility] [id number] [place] [address] 68511- 4728 August, Routine gynecological examination Z01.419 and Screening breast examination Z12.39 [facility] [id number] [place] [address] 22686- 2185 Jul, [facility] [id number] [place] [address] 31399- 3475 Jul, [facility] [id number] [place] [address] 55139- 6625 Jul, Neuroforaminal stenosis of spine M99.89 [facility] [address], [place] [address]- 6186 Jul, [facility] [id number] [place] [address] 89168- 9770 Jul, 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 [facility] [id number] [place] [address] 70903- 7722 Jul, [facility] [id number] [place] [address] 12856- 7606 Jul, [facility] [id number] [place] [address] 86882- 0800 Jun, Neuroforaminal stenosis of spine M99.89 [facility] [id number] [place] [address] 91626- 5337 Jun, Uterine leiomyoma, unspecified location D25.9 and Allergic reaction caused by a drug, initial encounter T78.40XA [facility] [id number] [place] [address] 14580- 3552 Jun, [facility] [id number] [place] [address] 40139- 7340 May, UTI symptoms R39.9 and Pain of right sacroiliac joint M53.3 [facility] [id number] [place] [address] 86990- 0363 May, Neuroforaminal stenosis of spine M99.89 [facility] [address], [place] [address]- 9522 May, [facility] [id number] [place] [address] 18666- 0171 May, Acute mucoid otitis media of left ear H65.112 and Acute non- recurrent maxillary sinusitis J01.00 [facility] [id number] [place] [address] 22288- 0821 May, Acute bacterial conjunctivitis of both eyes H10.33 ; Left arm pain M79.602 and Hypokalemia E87.6 [facility] [id number] [place] [address] 79134- 3012 Apr, [facility] [id number] [place] [address] 86580- 5800 Apr, Neuroforaminal stenosis of spine M99.89 ; Neck pain M54.2 ; Chronic pain due to trauma G89.21 ; Mixed hyperlipidemia E78.2 ; Essential hypertension I10 and Hypokalemia E87.6 [facility] [id number] [place] [address] 65374- 2262 Mar, Oral candidiasis B37.0 ; Neuroforaminal stenosis of spine M99.89 ; Neck pain M54.2 and Chronic pain due to trauma G89.21 [facility] [id number] [place] [address] 39029- 3798 Feb, [facility] [id number] [place] [address] 36005- 6172 Feb, [facility] [id number] [place] [address] 26591- 9246 Feb, UTI (urinary tract infection) N39.0 [facility] [id number] [place] [address] 93796- 3627 Feb, Dysuria R30.0 [facility] [id number] [place] [address] 45242- 0724 Feb, Dysuria R30.0 [facility] [id number] [place] [address] 78386- 8344 Feb, Neuroforaminal stenosis of spine M99.89 ; Neck pain M54.2 ; Essential hypertension I10 ; Chronic pain due to trauma G89.21 ; Dysuria R30.0 ; Abnormal MRI, shoulder R93.8 and Acute cystitis without hematuria N30.00 [facility] [facility] [id number] [place] [address] 51776- 4827 Jan, [facility] [id number] [place] [address] 29975- 2318 Jan, [facility] [id number] [place] [address] 27007- 6424 Jan, [facility] [id number] [place] [address] 14380- 4469 Jan, Abnormal MRI R93.8 [facility] [id number] [place] [address] 78108- 2107 29 Dec, 2015 [facility] [id number] [place] [address] 99901 -4655 15 Dec, 2015 Acute pain of left shoulder M25.512 [facility] [id number] [place] [address] 24711- 2220 09 Dec, 2015 [facility] [id number] [place] [address] 00032- 0489 08 Dec, 2015 [facility] [id number] [place] [address] 78829- 2058 07 Dec, 2015 Acute pain of left shoulder M25.512 [facility] [id number] [place] [address] 80398- 4362 Nov, [facility] [id number] [place] [address] 75403- 5731 Nov, Neuroforaminal stenosis of spine M99.89 ; Neck pain M54.2 ; Abnormal mammogram R92.8 ; Essential hypertension I10 and Chronic pain due to trauma G89.21 [facility] [id number] [place] [address] 18774- 8963 Nov, [facility] [id number] [place] [address] 88113- 7855 Oct, Acute stress disorder F43.0 [facility] [id number] [place] [address] 85969- 4235 Oct, [facility] [address] [facility] [id number] [address]- 0882 Oct, [facility] [id number] [place] [address] 19027- 0666 Oct, [facility] [address], [place] [address]- 5829 Sep, [facility] [id number] [place] [address] 90758- 9203 August, [facility] [id number] [place] [address] 38241- 1678 Jul, Neuroforaminal stenosis of spine M99.89 ; Neck pain M54.2 ; Abnormal mammogram R92.8 and Essential hypertension I10 [facility] [address], [place] [address]- 0776 Jul, [facility] [address], [place] [address]- 7131 Jul, [facility] [address], [place] [address]- 5267 Jul, Abnormal mammogram R92.8 [facility] [id number] [place] [address] 05876- 7714 Jul, [facility] [address], [place] [address]- 1509 Jul, UTI (urinary tract infection) N39.0 [facility] [address], [place] [address]- 6835 Jul, Dysuria R30.0 [facility] [address], [place] [address]- 3823 Jun, [facility] [id number], [place] [address]- 9746 Jun, [facility] [id number] [address]- 9655 Jun, Hypokalemia E87.6 and Hematuria R31.9 [facility] [id number] [place] [address] 97038- 0255 Jun, Hypokalemia E87.6 [facility] [id number] [place] [address] 43908- 7626 Jun, [facility] [address] 08596- 5807 Jun, Hypokalemia E87.6 [facility] [id number] [place] [address] 24011- 2159 Jun, Hypokalemia E87.6 [facility] [id number] [place] [address] 77970- 1972 Jun, Neuroforaminal stenosis of spine M99.89 ; Hypokalemia E87.6 ; Neck pain M54.2 ; Essential hypertension I10 ; Mixed hyperlipidemia E78.2 and Screening breast examination Z12.39 [facility] [id number] [place] [address] 91573- 1619 Jun, Dysuria R30.0 ; UTI (urinary tract infection) N39.0 and Hematuria R31.9 [facility] [id number] [place] [address] 71621- 8375 May, [facility] [id number] [place] [address] 28334- 8459 May, High risk sexual behavior Z72.51 ; Hypokalemia E87.6 ; Neuroforaminal stenosis of spine M99.89 ; Neck pain M54.2 ; Essential hypertension I10 ; Mixed hyperlipidemia E78.2 ; STD exposure Z20.2 and Concern about STD in female without diagnosis Z71.1 [facility] [id number] [place] [address] 09738- 0309 16 May, 2015 Neuroforaminal stenosis of spine M99.89 ; Neck pain M54.2 ; Hypokalemia E87.6 ; Essential hypertension I10 and Mixed hyperlipidemia E78.2 [facility] [id number] [place] [address] 84612- 5808 May, [facility] [id number] [place] [address] 16359 -0516 08 May, 2015 High risk sexual behavior Z72.51 ; STD exposure Z20.2 and Concern about STD in female without diagnosis Z71.1 [facility] [id number] [place] [address] 17414- 6654 May, [facility] [facility] [address] 56254- 5359 Apr, Neuroforaminal stenosis of spine M99.89 ; Mixed hyperlipidemia E78.2 ; Essential hypertension I10 and Hypokalemia E87.6 [facility] [id number] [place] [address] 92222- 8901 Mar, [facility] [id number] [place] [address] 29935- 3959 Mar, Hypokalemia E87.6 [facility] [id number] [place] [address] 61085- 7812 Mar, Neuroforaminal stenosis of spine M99.89 ; Mixed hyperlipidemia E78.2 ; Neck pain M54.2 ; Essential hypertension I10 ; Abnormal fasting glucose R73.09 ; Hypokalemia E87.6 and Constipation K59.00 [facility] [id number] [place] [address] 40096- 3583 Feb, Neuroforaminal stenosis of spine M99.89 ; Mixed hyperlipidemia E78.2 ; Neck pain M54.2 ; Essential hypertension I10 ; Abnormal fasting glucose R73.09 ; Hypokalemia E87.6 and Constipation K59.00 [facility] [id number] [place] [address] 83701- 8776 Feb, Elevated fasting blood sugar R73.01 [facility] [id number] [place] [address]- 2011 Feb, Elevated fasting blood sugar R73.01 [facility] [id number] [place] [address] 97550- 1912 Feb, Hair loss L65.9 [facility] [id number] [place] [address] 87834- 0277 Feb, Sinusitis J32.9 ; Essential hypertension I10 and Hair loss L65.9 [facility] [id number] [place] [address] 66848- 0595 Jan, [facility] [facility] [address] 69271- 3264 Jan, Essential hypertension I10 ; Neuroforaminal stenosis of spine M99.89 ; Neck pain M54.2 ; Mixed hyperlipidemia E78.2 and Anxiety F41.9 [facility] [id number] [place] [address] 09749- 7435 Jan, [facility] [id number] [place] [address] 45191- 7334 Jan, Mixed hyperlipidemia E78.2 ; Essential (primary) hypertension I10 ; Strain of muscle, fascia and tendon at neck level, subsequent encounter S16.1XXD and Tension-type headache, unspecified, not intractable G44.209 [facility] [id number] [place] [address] 10986- 6367 Dec, Lumbar back pain 724.2 and Neuroforaminal stenosis of spine 724.00 [facility] [id number] [place] [address] 52105- 0883 Nov, [facility] [facility] [address] 16332- 3856 Nov, Lumbar back pain 724.2 and Neuroforaminal stenosis of spine 724.00 [facility] [id number] [place] [address] 14246- 1929 Nov, Edema 782.3 ; Lumbar back pain 724.2 ; Essential hypertension, benign 401.1 ; Hyperlipemia 272.4 ; Neuroforaminal stenosis of spine 724.00 and Post-concussion headache 339.20 [facility] [id number] [place] [address] 64712- 5984 Nov, [facility] [id number] [place] [address] 58850- 5978 Nov, [facility] [id number] [place] [address] 99349- 8297 Oct, Essential hypertension, benign 401.1 [facility] [id number] [place] [address] 22335- 7804 Oct, Edema 782.3 ; Lumbar back pain 724.2 ; Essential hypertension, benign 401.1 ; Hyperlipemia 272.4 ; Neuroforaminal stenosis of spine 724.00 and Post-concussion headache 339.20 [facility] [id number] [place] [address] 86763- 8379 Oct, [facility] [id number] [place] [address] 90260- 4556 Oct, Edema 782.3 [facility] [id number] [place] [address] 58201- 8490 Oct, Lumbar back pain 724.2 [facility] [id number] [place] [address] 15154- 0992 Oct, Cervicalgia 723.1 ; Lumbar back pain 724.2 and High risk medication use V58.69 [facility] [id number] [place] [address] 17821- 0506 Sep, [facility] [facility] [id number] [place] [address] 08583- 8681 Sep, Lumbar strain 847.2 [facility] [id number] [place] [address] 84730- 7515 August, Edema 782.3 and Eustachian tube dysfunction 381.81 [facility] [address], [place] [address]- 8108 August, [facility] [address], [place] [address]- 7989 August, Eustachian tube dysfunction 381.81 [facility] [id number] [place] [address]- 0811 Jul, Otalgia 388.70 and Otitis media 382.9 [facility] [address] [facility] [id number] [address]- 9284 Jul, [facility] [id number] [place] [address], [place] [address]- 6990 Jul, [facility] [address], [place] [address]- 6338 Jul, [facility] [id number] [place] [address] 46092- 4264 Jul, [facility] [address], [place] [address]- 5875 Jul, [facility] [address], [place] [address]- 8086 Jun, [facility] [address], [place] [address]- 9608 Jun, [facility] [id number], [place] [address]- 3661 Jun, [facility] [id number], [place] [address]- 9836 May, [facility] [address] 9176 May, [facility] [address] 6675 May, [facility] [address] [address]- 1986 May, 2014 [facility] [place] [facility] [address] [id number] [place] [address]- 4081 May, 2014 [facility] [place] [facility] [address] [id number] [place] [address]- 0146 May, 2014 [facility] [place] [facility] [address] [id number] [place] [address]- 4820 May, 2014 [facility] [place] [facility] [address] [id number] [place] [address]- 3088 May, 2014 [facility] [place] [facility] [address] [id number] [place] [address]- 4500 May, 2014 [facility] [place] [facility] [address] [id number] [place] [address]- 2607 May, [facility] [place] [facility] [address] [facility] [id number] [place] [address] Apr, [facility] [place] [facility] [address] [id number] [place] [address] Apr, [facility] [place] [facility] [address] [id number] [place] [address] Apr, [facility] [place] [facility] [address] [facility] [id number] [place] [address] Apr, [facility] [place] [facility] [address] [id number] [place] [address] Apr, [facility] [place] [facility] [address] [id number], [place] [address] Apr, [facility] [place] [facility] [address] [id number] [place] [address] Apr, [facility] [place] [facility] [address] [facility] [id number] [place] [address] Apr, [facility] [place] [facility] [address] [facility] [id number], [place] [address] Apr, [facility] [place] [facility] [address] [id number] [place] [address] Apr, [facility] [place] [facility] [address] [id number] [place] [address] Apr, [facility] [place] [facility] [address] [id number] [place] [address] Apr, [facility] [place] [facility] [address] [id number] [place] [address] Apr, [facility] [place] [facility] [address] [id number] [place] [address] Apr, [facility] [place] [facility] [address] [id number] [place] [address] Apr, [facility] [place] [facility] [address] [id number] [place] [address] Mar, [facility] [place] [facility] [address] [id number] [place] [address] Mar, [facility] [place] [facility] [address] [id number] [place] [address] Mar, [facility] [place] [facility] [address] [id number] [place] [address] Mar, [facility] [place] [facility] [address] [id number] [place] [address] Feb, [facility] [place] [facility] [address] [id number] [place] [address] Feb, [facility] [place] [facility] [address] [id number] [place] [address] Feb, [facility] [place] [facility] [address] [id number] [place] [address] Feb, [facility] [place] [facility] [address] [id number] [place] [address] Jan, [facility] [place] [facility] [address] [id number] [place] [address] Jan, [facility] [place] [facility] [address] [id number] [place] [address] Jan, [facility] [place] [facility] [address] [id number] [place] [address] Jan, [facility] [place] [facility] [address] [id number] [place] [address]- 5962 Jan, [facility] [place] [facility] [address] [id number] [place] [address] Jan, [facility] [place] [facility] [address] [id number] [place] [address] 48[address] Jan, [facility] [place] [facility] [address] [id number] [place] [address] 39[address] Jan, [facility] [place] [facility] [address] [id number] [place] [address] 3594 Dec, [facility] [place] [facility] [address] [id number] [place] [address]53 29 Dec, 2013 [facility] [place] [facility] [address] [id number] [place] [address]24 Dec, [facility] [place] [facility] [address] [id number] [place] [address] 6668 Dec, [facility] [place] [facility] [address] [id number] [place] [address] 3963 Oct, [facility] [place] [facility] [address] [id number], [place] [address] 44[address] Oct, [facility] [place] [facility] [address] [id number] [place] [address] 6966 Oct, [facility] [place] [facility] [address] [id number] [place] [address]- 5867 Oct, [facility] [place] [facility] [address] [id number] [place] [address] Oct, [facility] [place] [facility] [address] [id number] [place] [address]- 8020 Oct, [facility] [place] [facility] [address] [id number] [place] [address]- 7492 Oct, [facility] [place] [facility] [address] [id number] [place] [address]- 7833 Oct, [facility] [place] [facility] [address] [id number] [place] [address] 8198 Sep, [facility] [place] [facility] [address] [id number] [place] [address]- 3364 Sep, [facility] [place] [facility] [address] [id number] [place] [address]- 6[address] Sep, [facility] [place] [facility] [address] [id number] [place] [address]- 1777 Sep, [facility] [place] [facility] [address] [id number] [place] [address]- 6412 Sep, [facility] [place] [facility] [address] [id number] [place] [address]- 4691 Sep, [facility] [place] [facility] [address] [id number] [place] [address]- 7155 Sep, [facility] [place] [facility] [address] [id number] [place] [address]- 3953 Sep, [facility] [place] [facility] [address] [id number] [place] [address]- 0130 Sep, [facility] [place] [facility] [address] [id number] [place] [address]- 9598 Sep, [facility] [place] [facility] [address] [id number] [place] [address]- 2283 August, [facility] [place] [facility] [address] [id number] [place] [address]- 6546 August, [facility] [place] [facility] [address] [id number] [place] [address]- 3088 August, [facility] [place] [facility] [address] [id number] [place] [address]- 3552 August, [facility] [place] [facility] [address] [id number] [place] [address]- 5902 August, [facility] [place] [facility] [address] [id number] [place] [address] 9727 August, [facility] [place] [facility] [address] [id number] [place] [address]- 3141 August, [facility] [place] [facility] [address] [id number] [place] [address] 5039 August, [facility] [place] [facility] [address] [id number] [place] [address]- 8131 August, [facility] [place] [facility] [address] [id number] [place] [address]- 9623 August, [facility] [place] [facility] [address] [id number] [place] [address]- 5697 August, [facility] [place] [facility] [address] [id number] [place] [address]- 0724 August, [facility] [place] [facility] [address] [id number] [place] [address]- 7507 Jul, [facility] [place] [facility] [address] [id number] [place] [address]- 1049 Jul, [facility] [place] [facility] [address] [id number] [place] [address]- 1208 Jul, [facility] [place] [facility] [address] [id number] [place] [address]- 5549 Jul, [facility] [place] [facility] [address] [id number] [place] [address]- 2493 Jul, [facility] [place] [facility] [address] [id number] [place] [address] Jul, [facility] [place] [facility] [address] [id number], [place] [address]- 1087 Jun, [facility] [place] [facility] [address] [id number] [place] [address]- 7331 Jun, [facility] [place] [facility] [address] [id number] [place] [address]- 2694 May, [facility] [place] [facility] [address] [id number] [place] [address]- 4629 May, [facility] [place] [facility] [address] [id number] [place] [address]- 8666 Apr, [facility] [place] [facility] [address] [id number] [place] [address]- 2409 Apr, [facility] [place] [facility] [address] [id number] [place] [address]- 1793 Apr, [facility] [place] [facility] [address] [id number] [place] [address]- 1034 Apr, [facility] [place] [facility] [address] [id number] [place] [address]- 2515 Apr, [facility] [place] [facility] [address] [id number] [place] [address]- 1442 Apr, [facility] [place] [facility] [address] [id number] [place] [address]- 1523 Apr, [facility] [place] [facility] [address] [id number], [place] [address]- 9787 Apr, [facility] [place] [facility] [address] [id number], [place] [address]- 8702 Apr, [facility] [place] [facility] [address] [id number], [place] [address]- 0862 Apr, [facility] [place] [facility] [address] [id number], [place] [address]- 4090 Apr, [facility] [place] [facility] [address] [id number] [place] [address]- 0904 Apr, [facility] [place] [facility] [address] [id number] [place] [address]- 2244 Apr, [facility] [place] [facility] [address] [id number] [place] [address] Mar, [facility] [place] [facility] [address] [id number] [place] [address]- 1767 Mar, [facility] [place] [facility] [address] [id number] [place] [address]- 2471 Mar, [facility] [place] [facility] [address] [id number] [place] [address]- 0864 Mar, [facility] [place] [facility] [address] [id number] [place] [address]- 1753 Feb, [facility] [place] [facility] [address] [id number] [place] [address]- 5153 Feb, [facility] [place] [facility] [address] [id number] [place] [address]- 7887 Feb, [facility] [place] [facility] [address] [id number] [place] [address]- 5104 Feb, [facility] [place] [facility] [address] [id number] [place] [address]- 5559 14 Jan, 2013 [facility] [place] [facility] [address] [id number] [place] [address]- 4826 14 Jan, 2013 [facility] [place] [facility] [address] [id number] [place] [address]- 0114 11 Jan, 2013 [facility] [place] [facility] [address] [id number] [place] [address]- 2207 11 Jan, 2013 [facility] [place] [facility] [address] [id number] [place] [address]- 3701 10 Jan, 2013 [facility] [place] [facility] [address] [id number] [place] [address] 10 Jan, 2013 [facility] [place] [facility] [address] [id number] [place] [address]- 7758 Jan, [facility] [address] [id number] [place] [address]- 2475 Jan, [facility] [place] [facility] [address] [id number] [place] [address]- 0274 Jan, [facility] [address] [id number] [place] [address]- 3225 Dec, [facility] [place] [facility] [address] [id number] [place] [address]- 3252 Dec, [facility] [address] [id number] [place] [address]- 7009 Dec, [facility] [place] [facility] [address] [id number] [place] [address]- 7478 Dec, [facility] [place] [facility] [address] [id number] [place] [address]- 9631 Nov, [facility] [place] [facility] [address] [id number] [place] [address]- 6163 Nov, [facility] [place] [facility] [address] [id number] [place] [address]- 0035 Nov, [facility] [place] [facility] [address] [id number] [place] [address]- 6818 Nov, [facility] [place] [facility] [address] [id number], [place] [address]- 4223 Oct, [facility] [place] [facility] [address] [id number], [place] [address]- 5518 Sep, [facility] [place] [facility] [address] [id number] [place] [address]- 4762 August, [facility] [place] [facility] [address] [id number] [place] [address]- 0217 August, [facility] [place] [facility] [address] [id number] [place] [address]- 9372 August, [facility] [place] [facility] [address] [id number] [place] [address]- 1227 August, [facility] [address] [id number] [place] [address]- 8229 August, [facility] [address] [id number] [place] [address]- 2064 August, [facility] [address] [id number] [place] [address]- 8760 August, [facility] [address] [id number] [place] [address]- 1846 August, [facility] [address] [id number] [place] 134[address] August, [facility] [address] [id number] [place] [address]- 7941 August, [facility] [address] [id number] [place] [address]- 2914 August, [facility] [address] [id number] [place] [address]- 5037 August, [facility] [address] [id number] [place] [address]- 3089 Jul, [facility] [address] [id number] [place] [address]- 0021 Jul, [facility] [address] [id number] [place] [address]- 8982 18 Jul, 2012 [facility] [address] [id number] [place] [address]- 5608 15 Jul, 2012 [facility] [address] [id number] [place] [address]- 3698 Jul, [facility] [address] [id number] [place] [address]- 6714 Jul, [facility] [address] [id number] [place] [address]- 4197 Jul, [facility] [address] [id number] [place] [address]- 7720 Jul, [facility] [address] [id number] [place] [address]- 4263 Jul, [facility] [address] [id number] [place] [address]- 5301 Jul, [facility] [address] [id number] [place] [address]- 6076 Jul, [facility] [address] [id number] [place] [address]- 2721 Jun, [facility] [address] [id number] [place] [address]- 7349 Jun, [facility] [address] [id number] [place] [address]- 6875 Jun, [facility] [address] [id number] [place] [address]- 7781 Jun, [facility] [address] [id number] [place] [address]- 5299 May, [facility] [address] [id number] [place] [address]- 2079 May, [facility] [address] [id number] [place] [address]- 7462 May, [facility] [place] [facility] [address] [id number], [place] [address]- 0338 May, [facility] [place] [facility] [address] [id number] [place] [address] 2545 May, [facility] [place] [facility] [address] [id number] [place] [address]- 8006 May, [facility] [place] [facility] [address] [id number] [place] [address]- 2900 Apr, [facility] [place] [facility] [address] [id number] [place] [address]- 6134 31 Apr, 2012 [facility] [place] [facility] [address] [id number] [place] [address]- 7162 30 Apr, 2012 [facility] [place] [facility] [address] [id number] [place] [address]- 9509 28 Apr, 2012 [facility] [place] [facility] [address] [id number] [place] [address]- 8660 15 Mar, 2012 [facility] [place] [facility] [address] [id number] [place] [address]- 3052 14 Mar, 2012 [facility] [place] [facility] [address] [id number] [place] [address]- 5711 14 Mar, 2012 [facility] [place] [facility] [address] [id number] [place] [address]- 4599 14 Mar, 2012 [facility] [place] [facility] [address] [id number] [place] [address]- 8804 14 Mar, 2012 [facility] [place] [facility] [address] [id number] [place] [address]- 1291 06 Mar, 2012 [facility] [place] [facility] [address] [id number] [place] [address]- 0712 06 Mar, 2012 [facility] [place] [facility] [address] [id number] [place] [address]- 4155 Feb, [facility] [place] [facility] [address] [id number] [place] [address]- 7769 Feb, [facility] [place] [facility] [address] [id number] [place] [address]- 3022 Feb, [facility] [place] [facility] [address] [id number] [place] [address]- 4657 Feb, [facility] [place] [facility] [address] [id number] [place] [address]- 7657 Jan, [facility] [place] [facility] [address] [id number] [place] [address]151 Jan, [facility] [place] [facility] [address] [id number] [place] [address]- 5280 Jan, [facility] [place] [facility] [address] [id number] [place] [address]- 4332 Jan, [facility] [place] [facility] [address] [id number] [place] [address]- 6226 Jan, [facility] [place] [facility] [address] [id number] [place] [address]- 6401 Jan, [facility] [place] [facility] [address] [id number] [place] [address]- 6281 Dec, [facility] [place] [facility] [address] [id number] [place] [address]- 1899 Dec, [facility] [place] [facility] [address] [id number] [place] [address]- 7524 Nov, [facility] [place] [facility] [address] [id number] [place] [address]- 4515 Sep, [facility] [place] [facility] [address] [id number] [place] [address]- 1485 August, [facility] [place] [facility] [address] [id number] [place] [address]- 0363 August, [facility] [place] [facility] [address] [id number] [place] [address]- 5658 August, [facility] [place] [facility] [address] [id number] [place] [address]- 6994 August, [facility] [place] [facility] [address] [id number] [place] [address]- 7771 August, [facility] [place] [facility] [address] [id number] [place] [address]- 5434 Jun, [facility] [place] [facility] [address] [id number] [place] [address]- 0877 Jun, [facility] [place] [facility] [address] [id number] [place] [address]- 2807 Apr, [facility] [place] [facility] [address] [id number] [place] [address]- 4246 Apr, [facility] [place] [facility] [address] [id number] [place] [address]- 6436 Mar, [facility] [place] [facility] [address] [id number] [place] [address]- 7823 Feb, [facility] [place] [facility] [address] [id number] [place] [address]- 6386 14 Feb, 2011 [facility] [place] [facility] [address] [id number] [place] [address]- 6537 Feb, [facility] [place] [facility] [address] [id number] [place] [address]- 4838 17 Jan, 2011 [facility] [place] [facility] [address] [id number] [place] [address]- 5483 15 Jan, 2011 [facility] [place] [facility] [address] [id number] [place] [address]- 2283 15 Jan, 2011 [facility] [place] [facility] [address] [id number] [place] [address]- 0683 14 Jan, 2011 [facility] [place] [facility] [address] [id number] [place] [address]- 8971 15 May, 2010 [facility] [place] [facility] [address] [id number], [place] [address]- 8472 Mar, [facility] [place] [facility] [address] [id number], [place] [address]- 4831 Oct, [facility] [place] [facility] [address] [id number] [place] [address]- 2208 Sep, [facility] [place] [facility] [address] [id number] [place] [address]- 0518 Mar, [facility] [place] [facility] [address] [id number] [place] [address]- 8171 Jan, [facility] [place] [facility] [address] [facility] [id number] [place] [address]- 7838 Jan, [facility] [address] [facility] [id number][place] [address] [address]20 May, IMMUNIZATIONS No Known Immunizations SOCIAL HISTORY Never Assessed REASON FOR VISIT Controlled Med Refill PLAN OF CARE VITAL SIGNS MEDICATIONS Medication Instructions Dosage Frequency Start Date End Date Duration Status Hydrocodone-Acetaminophen 5-325 MG Orally 3 -4 times a day prn. must last 4 weeks 1 tablet as needed Sep, 28 days Active RESULTS No Results PROCEDURES No Known procedures INSTRUCTIONS MEDICATIONS ADMINISTERED No Known Medications MEDICAL (GENERAL) HISTORY Type Description Date Medical History hypertension Medical History Colposcopy with loop electrode excision of the cervix was performed 06/2012, mild squamous atypia (no definite dyplasia). Performed at [facility] Dr. Joy. Medical History Acute suppurative [...]
--- OUTSIDE RECORDS SUMMARY | 2018-06-10 05:28 | XMS REPORT ---
Author Author CHINTAN PERRY Organization [facility] Address [address] [place] [address] Care Team Providers Care Metal Neutralizer Name Role Phone CHINTAN PERRY Unavailable PROBLEMS Type Condition ICD9-CM Code ELD75-PJ Code Onset Dates Condition Status SNOMED Code Problem Anxiety F41.9 Active 08267313 Problem Abnormal glucose R73.09 Active 599406261 Problem Chronic pain due to trauma G89.21 Active 595036827 Problem Hypokalemia E87.6 Active 56883070 Problem Neck pain M54.2 Active 88578434 Problem Neuroforaminal stenosis of spine M99.89 Active 388516204576 Problem Mixed hyperlipidemia E78.2 Active 00158022 Problem Essential hypertension I10 Active 94029211 ALLERGIES Substance Reaction Event Type Date Status Macrobid rash Drug Allergy Mar, Active Cipro hives Drug Allergy Mar, Active Baclofen Unknown Drug Allergy Mar, Active Amitriptyline HCl dizziness Drug Allergy Mar, Active Peanut Unknown Non Drug Allergy Mar, Active ENCOUNTERS Encounter Location Date Diagnosis [place] [id number] [place] [address] 37097- 5195 Oct, [place] [address] [place] [id number] [place] [address] 46377- 1456 Sep, Abnormal glucose R73.09 [place] [address] [place] [id number] [place] [address] 96269- 4256 August, Lateral epicondylitis, right elbow M77.11 [place] [address] [id number] [place] [address] 57644- 5447 August, Screen for STD (sexually transmitted disease) Z11.3 [place] [address] [place] [id number] [place] [address] 87492- 9742 August, Neuroforaminal stenosis of spine M99.89 ; Mixed hyperlipidemia E78.2 ; Elevated fasting glucose R73.01 ; Screening mammogram, encounter for Z12.31 and Encounter for well woman exam without gynecological exam Z00.00 [place] [address] [id number] [place] [address] 66730- 2764 August, Neuroforaminal stenosis of spine M99.89 [place] [address] [id number] [place] [address] 21893- 4950 August, Essential hypertension I10 ; Hypokalemia E87.6 and Mixed hyperlipidemia E78.2 [place] [address] [place] [id number] [place] [address] 42803- 7326 Jul, [place] [address] [id number] [place] [address] 60906- 3952 Jul, Neuroforaminal stenosis of spine M99.89 [place] [address] [id number] [place] [address] 36569- 8858 Jul, Lateral epicondylitis, right elbow M77.11 [place] [address] [place] [id number] [place] [address] 02767- 6312 Jul, [place] [address] [id number] [place] [address] 28808- 5659 Jun, High ankle sprain of right lower extremity, initial encounter S93.431A [place] [address] [id number] [place] [address] 13572- 2790 Jun, Essential hypertension I10 [place] [address] [id number] [place] [address] 68677- 4485 Jun, [place] [address] [place] [id number] [place] [address] 23180- 7360 Jun, [place] [address] [id number] [place] [address] 29094- 2590 Jun, Neuroforaminal stenosis of spine M99.89 [place] [address] [id number] [place] [address] 23176- 8202 Jun, Pain of right upper extremity M79.601 and Essential hypertension I10 [place] [address] [place] [id number] [place] [address] 08296- 2284 Jun, [place] [address] [id number] [place] [address] 02269- 9817 Jun, Dysuria R30.0 ; Acute cystitis with hematuria N30.01 and Screen for STD (sexually transmitted disease) Z11.3 [place] [address] [place] [id number] [place] [address] 65810- 5926 May, Chronic pain due to trauma G89.21 [place] [address] 40367- 7451 May, Essential hypertension I10 [address] 50903- 4963 May, Neuroforaminal stenosis of spine M99.89 [place] [address] [place] [id number] [place] [address] 09926- 7605 Apr, Allergic reaction, initial encounter T78.40XA [place] [id number] [place] [address] 40974- 2309 Apr, Low back pain, unspecified back pain laterality, unspecified chronicity, with sciatica presence unspecified M54.5 ; Acute cystitis with hematuria N30.01 ; Neuroforaminal stenosis of spine M99.89 ; Bilateral acute serous otitis media, recurrence not specified H65.03 ; Mixed hyperlipidemia E78.2 ; Essential hypertension I10 ; Immunization counseling Z71.89 and Encounter for immunization Z23 [place] [address] [place] [id number] [place] [address] 16468- 3343 Apr, Neck pain M54.2 [place] [id number] [place] [address] 96108- 2191 Mar, Neuroforaminal stenosis of spine M99.89 [place] [address] [place] [address]- 0797 Mar, Pharyngitis due to other organism J02.8 [facility] [address] [place] [id number] [place] [address] 73715- 2001 Feb, Neuroforaminal stenosis of spine M99.89 [facility] [address] [place] [id number] [place] [address] 88783- 6381 08 Feb, 2017 UTI (urinary tract infection) N39.0 [facility] [address] [place] [id number] [place] [address] 50022- 9835 Feb, Recent urinary tract infection Z87.440 ; Neuroforaminal stenosis of spine M99.89 ; Neck pain M54.2 ; Chronic pain due to trauma G89.21 and Recurrent UTI N39.0 [facility] [address] [place] [id number] [place] [address] 06909- 1550 Feb, [facility] [address] [place] [id number] [place] [address] 04968- 7202 Jan, Neuroforaminal stenosis of spine M99.89 [facility] [address] [place] [id number] [place] [address] 44080- 6137 28 Dec, 2016 Neuroforaminal stenosis of spine M99.89 [facility] [address] [place] [id number] [place] [address] 02314- 8543 18 Dec, 2016 Acute seasonal allergic rhinitis due to pollen J30.1 [facility] [address] [place] [id number] [place] [address] 02681- 3135 08 Dec, 2016 [facility] [address] [place] [id number] [place] [address] 88071- 4561 08 Dec, 2016 Acute seasonal allergic rhinitis, unspecified trigger J30.2 ; Allergic conjunctivitis of both eyes H10.13 and Dysfunction of both eustachian tubes H69.83 [facility] [address] [place] [id number] [place] [address] 87136- 0667 07 Dec, 2016 [facility] [address] [place] [id number] [place] [address] 45648- 3087 Dec, Nevus D22.9 [facility] [address] [place] [id number] [place] [address] 71721- 4376 Nov, Chronic pain due to trauma G89.21 and Neuroforaminal stenosis of spine M99.89 [facility] [address] [place] [id number] [place] [address] 29298- 9797 Nov, Neuroforaminal stenosis of spine M99.89 ; Essential hypertension I10 ; Mixed hyperlipidemia E78.2 ; Hypokalemia E87.6 ; Neck pain M54.2 and Nevus D22.9 [facility] [address] [place] [id number] [place] [address] 00263- 3284 Oct, Neuroforaminal stenosis of spine M99.89 [facility] [address] [place] [id number] [place] [address] 31285- 4660 Sep, Neuroforaminal stenosis of spine M99.89 [facility] [address] [place] [id number] [place] [address] 03822- 4859 Sep, [facility] [address] [place] [id number] [place] [address] 18432- 9154 August, [facility] [address] [place] [id number] [place] [address] 24313- 8647 August, Neck pain M54.2 and Neuroforaminal stenosis of spine M99.89 [facility] [address] [place] [id number] [place] [address] 23719- 2692 August, Routine gynecological examination Z01.419 and Screening breast examination Z12.39 [facility] [address] [place] [id number] [place] [address] 09387- 6425 Jul, [facility] [address] [place] [id number] [place] [address] 37103- 4319 Jul, [facility] [address] [place] [id number] [place] [address] 15602- 5216 Jul, Neuroforaminal stenosis of spine M99.89 [facility] [address] [address]- 4306 Jul, [facility] [address] [place] [id number] [place] [address] 23028- 9791 Jul, 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 [facility] [address] [place] [address] 07712- 5844 Jul, [facility] [address] [place] [id number] [place] [address] 05296- 5298 Jul, [facility] [address] [place] [address] 76557- 9751 Jun, Neuroforaminal stenosis of spine M99.89 [facility] [address] [place] [id number] [place] [address] 66085- 6772 Jun, Uterine leiomyoma, unspecified location D25.9 and Allergic reaction caused by a drug, initial encounter T78.40XA [facility] [address] [place] [address] 92383- 8328 Jun, [facility] [address] [place] [id number] [place] [address] 75931- 2346 May, UTI symptoms R39.9 and Pain of right sacroiliac joint M53.3 [place] [id number] [place] [address] 48349- 7682 May, Neuroforaminal stenosis of spine M99.89 [facility] [address] [address]- 6734 May, [facility] [address] [place] [id number] [place] [address] 92519- 4134 May, Acute mucoid otitis media of left ear H65.112 and Acute non- recurrent maxillary sinusitis J01.00 [facility] [address] [address]- 6014 May, Acute bacterial conjunctivitis of both eyes H10.33 ; Left arm pain M79.602 and Hypokalemia E87.6 [place] [address] [place] [id number] [place] [address] 26646- 3270 Apr, [facility] [address] [place] [id number] [place] [address] 69219- 9948 Apr, Neuroforaminal stenosis of spine M99.89 ; Neck pain M54.2 ; Chronic pain due to trauma G89.21 ; Mixed hyperlipidemia E78.2 ; Essential hypertension I10 and Hypokalemia E87.6 [place] [address] [place] [id number] [place] [address] 22313- 9054 Mar, Oral candidiasis B37.0 ; Neuroforaminal stenosis of spine M99.89 ; Neck pain M54.2 and Chronic pain due to trauma G89.21 [place] [address] [place] [id number] [place] [address] 34495- 2983 Feb, [place] [address] [place] [id number] [place] [address] 26627- 7320 Feb, [place] [address] [place] [id number] [place] [address] 60476- 7275 Feb, UTI (urinary tract infection) N39.0 [place] [address] [place] [id number] [place] [address] 79500- 3181 Feb, Dysuria R30.0 [place] [address] [place] [id number] [place] [address] 20727- 9085 Feb, Dysuria R30.0 [place] [address] [place] [id number] [place] [address] 01691- 5008 02 Feb, 2016 Neuroforaminal stenosis of spine M99.89 ; Neck pain M54.2 ; Essential hypertension I10 ; Chronic pain due to trauma G89.21 ; Dysuria R30.0 ; Abnormal MRI, shoulder R93.8 and Acute cystitis without hematuria N30.00 [place] [address] [place] [id number] [place] [address] 10636- 3714 Jan, [facility] [address] [place] [id number] [place] [address] 46975- 2926 Jan, [facility] [address] [place] [id number] [place] [address] 74991- 2040 Jan, [facility] [address] [place] [id number] [place] [address] 48314- 4989 Jan, Abnormal MRI R93.8 [facility] [address] [place] [id number] [place] [address] 09610- 8088 29 Dec, 2015 [facility] [address] [place] [id number] [place] [address] 43803 -4286 15 Dec, 2015 Acute pain of left shoulder M25.512 [facility] [address] [place] [id number] [place] [address] 81494- 3028 09 Dec, 2015 [facility] [address] [place] [id number] [place] [address] 01167- 1595 08 Dec, 2015 [facility] [address] [place] [id number] [place] [address] 32415- 3421 07 Dec, 2015 Acute pain of left shoulder M25.512 [facility] [address] [place] [id number] [place] [address] 75671- 7125 Nov, [facility] [address] [place] [id number] [place] [address] 16930- 7767 Nov, Neuroforaminal stenosis of spine M99.89 ; Neck pain M54.2 ; Abnormal mammogram R92.8 ; Essential hypertension I10 and Chronic pain due to trauma G89.21 [facility] [address] [place] [id number] [place] [address] 62576- 7733 Nov, [facility] [address] [place] [id number] [place] [address] 20389- 5436 Oct, Acute stress disorder F43.0 [facility] [address] [place] [id number] [place] [address] 55436- 9390 Oct, [facility] [address] [facility] [id number] [address]- 6686 Oct, [facility] [address] [place] [id number] [address]- 0414 Oct, [facility] [address] [facility] [id number], [place] [address]- 7507 Sep, [facility] [address] [place] [id number] [place] [address] 56545- 6452 August, [facility] [address] [address]- 2117 Jul, Neuroforaminal stenosis of spine M99.89 ; Neck pain M54.2 ; Abnormal mammogram R92.8 and Essential hypertension I10 [facility] [address] [address]- 3033 Jul, [facility] [address] [place] [address] 74443- 0048 Jul, [facility] [address] [address]- 6266 Jul, Abnormal mammogram R92.8 [facility] [address] [address]- 6673 Jul, [facility] [address] [address]- 4687 Jul, UTI (urinary tract infection) N39.0 [facility] [address] [address]- 2202 Jul, Dysuria R30.0 [facility] [id number] [place] [address]- 5950 Jun, [facility] [address] [place] [id number] [address]- 9361 Jun, [facility] [address], [place] [address]- 3811 Jun, Hypokalemia E87.6 and Hematuria R31.9 [place] [address] [place] [id number] [place] [address] 69276- 2182 Jun, Hypokalemia E87.6 [place] [address] [place] [id number] [place] [address] 22246- 8937 Jun, [place] [address] [place] [id number] [place] [address] 03741- 2271 Jun, Hypokalemia E87.6 [place] [address] [place] [id number] [place] [address] 21188- 5473 Jun, Hypokalemia E87.6 [place] [address] [place] [id number] [place] [address] 00302- 3434 Jun, Neuroforaminal stenosis of spine M99.89 ; Hypokalemia E87.6 ; Neck pain M54.2 ; Essential hypertension I10 ; Mixed hyperlipidemia E78.2 and Screening breast examination Z12.39 [place] [address] [place] [id number] [place] [address] 24014- 2963 Jun, Dysuria R30.0 ; UTI (urinary tract infection) N39.0 and Hematuria R31.9 [place] [address] [place] [id number] [place] [address] 74690- 4559 May, [place] [address] [place] [id number] [place] [address] 85886- 9412 May, High risk sexual behavior Z72.51 ; Hypokalemia E87.6 ; Neuroforaminal stenosis of spine M99.89 ; Neck pain M54.2 ; Essential hypertension I10 ; Mixed hyperlipidemia E78.2 ; STD exposure Z20.2 and Concern about STD in female without diagnosis Z71.1 [place] [id number] [place] [address] 05814- 0234 16 May, 2015 Neuroforaminal stenosis of spine M99.89 ; Neck pain M54.2 ; Hypokalemia E87.6 ; Essential hypertension I10 and Mixed hyperlipidemia E78.2 [facility] [address] [place] [id number] [place] [address] 35439- 5780 11 May, 2015 [facility] [address] [place] [id number] [place] [address] 35864 -6873 08 May, 2015 High risk sexual behavior Z72.51 ; STD exposure Z20.2 and Concern about STD in female without diagnosis Z71.1 [place] [address] 52043- 8406 May, [place] [address] 64299- 3541 Apr, Neuroforaminal stenosis of spine M99.89 ; Mixed hyperlipidemia E78.2 ; Essential hypertension I10 and Hypokalemia E87.6 [place] [address] [place] [id number] [place] [address] 24738- 3482 Mar, [place] [address] [place] [id number] [place] [address] 54349- 1408 Mar, Hypokalemia E87.6 [place] [address] 74519- 2682 Mar, Neuroforaminal stenosis of spine M99.89 ; Mixed hyperlipidemia E78.2 ; Neck pain M54.2 ; Essential hypertension I10 ; Abnormal fasting glucose R73.09 ; Hypokalemia E87.6 and Constipation K59.00 [place] [address] [place] [id number] [place] [address] 59830- 7894 Feb, Neuroforaminal stenosis of spine M99.89 ; Mixed hyperlipidemia E78.2 ; Neck pain M54.2 ; Essential hypertension I10 ; Abnormal fasting glucose R73.09 ; Hypokalemia E87.6 and Constipation K59.00 [place] [address] [place] [id number] [place] [address] 75272- 9846 Feb, Elevated fasting blood sugar R73.01 [place] [address] [place] [id number] [place] [address] 04964- 0070 Feb, Elevated fasting blood sugar R73.01 [place] [address] [place] [id number] [place] [address] 38929- 3173 Feb, Hair loss L65.9 [place] [address] [place] [id number] [place] [address] 24858- 4547 Feb, Sinusitis J32.9 ; Essential hypertension I10 and Hair loss L65.9 [place] [address] [place] [id number] [place] [address] 65880- 3936 Jan, [place] [address] [place] [id number] [place] [address] 48912- 7459 Jan, Essential hypertension I10 ; Neuroforaminal stenosis of spine M99.89 ; Neck pain M54.2 ; Mixed hyperlipidemia E78.2 and Anxiety F41.9 [place] [address] [place] [id number] [place] [address] 11761- 6738 Jan, [place] [address] [place] [id number] [place] [address] 06247- 9503 Jan, Mixed hyperlipidemia E78.2 ; Essential (primary) hypertension I10 ; Strain of muscle, fascia and tendon at neck level, subsequent encounter S16.1XXD and Tension-type headache, unspecified, not intractable G44.209 [place] [address] [id number] [place] [address] 07338- 2702 Dec, Lumbar back pain 724.2 and Neuroforaminal stenosis of spine 724.00 [place] [id number] [place] [address] 62307- 5954 Nov, [place] [address] [place] [id number] [place] [address] 15567- 7675 Nov, Lumbar back pain 724.2 and Neuroforaminal stenosis of spine 724.00 [place] [id number] [place] [address] 28361- 6189 Nov, Edema 782.3 ; Lumbar back pain 724.2 ; Essential hypertension, benign 401.1 ; Hyperlipemia 272.4 ; Neuroforaminal stenosis of spine 724.00 and Post-concussion headache 339.20 [facility] [id number] [place] [address] 40439- 4677 Nov, [facility] [id number] [place] [address] 56886- 8857 Nov, [facility] [address] [id number] [place] [address] 96535- 4976 Oct, Essential hypertension, benign 401.1 [facility] [id number] [place] [address] 60324- 4590 Oct, Edema 782.3 ; Lumbar back pain 724.2 ; Essential hypertension, benign 401.1 ; Hyperlipemia 272.4 ; Neuroforaminal stenosis of spine 724.00 and Post-concussion headache 339.20 [facility] [address] [id number] [place] [address] 10217- 6663 Oct, [facility] [address] [id number] [place] [address] 10102- 5871 Oct, Edema 782.3 [facility] [id number] [place] [address] 34392- 7394 Oct, Lumbar back pain 724.2 [facility] [address] [id number] [place] [address] 08132- 5877 Oct, Cervicalgia 723.1 ; Lumbar back pain 724.2 and High risk medication use V58.69 [facility] [address], [place] [address]- 1801 Sep, [facility] [id number] [place] [address] 43319- 7479 Sep, Lumbar strain 847.2 [facility] [id number] [place] [address] 88437- 6123 August, Edema 782.3 and Eustachian tube dysfunction 381.81 [facility] [id number] [place] [address] August, [facility] [id number] [place] [address] August, Eustachian tube dysfunction 381.81 [facility] [id number] [place] [place] [address] Jul, Otalgia 388.70 and Otitis media 382.9 [facility] [id number] [place] [address] Jul, [facility] [id number] [place] [address], [place] [address] Jul, [facility] [id number] [place] [address] Jul, [facility] [id number] [place] [address] Jul, [facility] [id number] [place] [address] Jul, [facility] [id number] [place] [address] Jun, [facility] [id number] [address] Jun, [facility] [id number] [place] [address] 16 Jun, 2014 [facility] [id number] [address] May, [facility] [id number] [place] [address] May, [facility] [id number] [place] [place] [address] 23 May, 2014 [facility] [id number] [address] 17 May, 2014 [facility] [place] [facility] [address] [id number] [place] [address] May, 2014 [facility] [place] [facility] [address] [id number] [place] [address]- [address]656 May, 2014 [facility] [place] [facility] [address] [id number] [place] [address]- [address] May, 2014 [facility] [place] [facility] [address] [id number] [place] [address] May, 2014 [facility] [place] [facility] [address] [id number] [place] [address]- [address] May, [facility] [place] [facility] [address] [id number] [place] [address] May, [facility] [place] [facility] [address] [id number] [place] [address] 8096 Apr, [facility] [place] [facility] [address] [id number] [place] [address] 0603 Apr, [facility] [place] [facility] [address] [id number] [place] [address] 3213 Apr, [facility] [place] [facility] [address] [id number] [place] [address] 5657 Apr, [facility] [place] [facility] [address] [id number] [place] [address] 0081 Apr, [facility] [place] [facility] [address] [id number] [place] [address] 4704 Apr, [facility] [place] [facility] [address] [id number] [place] [address] 0390 Apr, [facility] [place] [facility] [address] [id number] [place] [address]- 3324 Apr, [facility] [place] [facility] [address] [id number] [place] [address] 6900 Apr, [facility] [place] [facility] [address] [id number] [place] [address]- 7511 Apr, [facility] [address] [id number] [place] [address] 7828 Apr, [facility] [place] [facility] [address] [id number] [place] [address]- 1104 Apr, [facility] [address] [id number] [place] [address] 8578 Apr, [facility] [place] [facility] [address] [id number] [place] [address]- 5312 Apr, [facility] [address] [id number] [place] [address]- 3217 Apr, [facility] [address] [id number] [place] [address] 4341 Mar, [facility] [address] [id number] [place] [address] 1285 Mar, [facility] [address] [id number] [place] [address] 9451 Mar, [facility] [place] [facility] [address] [id number] [place] [address] 0625 Mar, [facility] [address] [id number] [place] [address] 3336 Feb, [facility] [place] [facility] [address] [id number] [place] [address] 9510 Feb, [facility] [place] [facility] [address] [id number] [place] [address]- 5568 Feb, [facility] [place] [facility] [address] [id number] [place] [address] 4944 Feb, [facility] [place] [facility] [address] [id number] [place] [address] 4119 Jan, [facility] [place] [facility] [address] [id number] [place] [address]- 2686 Jan, [facility] [place] [facility] [address] [id number] [place] [address] 8171 Jan, [facility] [place] [facility] [address] [id number] [place] [address]- 5006 Jan, [facility] [place] [facility] [address] [id number] [place] [address]- 9004 Jan, [facility] [place] [facility] [address] [id number] [place] [address]- 2244 Jan, [facility] [place] [facility] [address] [id number] [place] [address] Jan, [facility] [place] [facility] [address] [id number] [place] [address]- 6687 Jan, [facility] [place] [facility] [address] [id number] [place] [address] 2940 Dec, [facility] [place] [facility] [address] [id number] [place] [address]- 8684 Dec, [facility] [place] [facility] [address] [id number] [place] [address]- 0382 Dec, [facility] [place] [facility] [address] [id number] [place] [address]- 0793 Dec, [facility] [place] [facility] [address] [id number] [place] [address] 3428 Oct, [facility] [place] [facility] [address] [id number] [place] [address]- 6352 Oct, [facility] [place] [facility] [address] [id number] [place] [address]- 7809 Oct, [facility] [place] [facility] [address] [id number] [place] [address]- 3168 Oct, [facility] [place] [facility] [address] [id number] [place] [address]- 1258 Oct, [facility] [place] [facility] [address] [id number] [place] [address] 6991 Oct, [facility] [place] [facility] [address] [id number] [place] [address]- 7787 Oct, [facility] [place] [facility] [address] [id number] [place] [address]- 7957 Oct, [facility] [place] [facility] [address] [id number] [place] [address]- 0569 Sep, [facility] [place] [facility] [address] [id number] [place] [address]- 2826 Sep, [facility] [place] [facility] [address] [id number] [place] [address] 3639 Sep, [facility] [place] [facility] [address] [id number] [place] [address]- 2342 Sep, [facility] [place] [facility] [address] [id number] [place] [address]- 4202 Sep, [facility] [place] [facility] [address] [id number] [place] [address]- 8243 Sep, [facility] [place] [facility] [address] [id number] [place] [address]- 7429 Sep, [facility] [place] [facility] [address] [id number] [place] [address]- 1411 Sep, [facility] [place] [facility] [address] [id number] [place] [address]- 5761 Sep, [facility] [place] [facility] [address] [id number] [place] [address]- 9085 Sep, [facility] [place] [facility] [address] [id number] [place] [address]- 0310 August, [facility] [place] [facility] [address] [id number] [place] [address]- 6616 August, [facility] [place] [facility] [address] [id number] [place] [address]- 8342 August, [facility] [place] [facility] [address] [id number] [place] [address]- 4061 August, [facility] [address] [id number] [place] [address] 0192 August, [facility] [place] [facility] [address] [id number] [place] [address]- 9084 August, [facility] [address] [id number] [place] [address]- 6068 August, [facility] [place] [facility] [address] [id number] [place] [address]- 7407 August, [facility] [place] [facility] [address] [id number] [place] [address]- 7693 August, [facility] [place] [facility] [address] [id number] [place] [address]- 6345 August, [facility] [address] [id number] [place] [address]- 5387 August, [facility] [address] [id number] [place] [address]- 3252 August, [facility] [place] [facility] [address] [id number] [place] [address]- 4607 Jul, [facility] [place] [facility] [address] [id number] [place] [address]- 1035 Jul, [facility] [place] [facility] [address] [id number] [place] [address]- 7391 Jul, [facility] [place] [facility] [address] [id number] [place] [address]- 5239 Jul, [facility] [place] [facility] [address] [id number] [place] [address] Jul, [facility] [place] [facility] [address] [id number] [place] Jul, [facility] [place] [facility] [address] [id number] [place] [address]- 4868 Jun, [facility] [place] [facility] [address] [id number] [place] [address]- 0482 Jun, [facility] [place] [facility] [address] [id number] [place] [address]- 4190 May, [facility] [place] [facility] [address] [id number] [place] [address]- 3892 May, [facility] [place] [facility] [address] [id number] [place] [address]- 0712 Apr, [facility] [place] [facility] [address] [id number] [place] [address]- 3932 Apr, [facility] [place] [facility] [address] [id number] [place] [address]- 2665 Apr, [facility] [place] [facility] [address] [id number] [place] [address]- 0003 Apr, [facility] [place] [facility] [address] [id number] [place] [address]- 0275 Apr, [facility] [place] [facility] [address] [id number] [place] [address]- 7463 Apr, [facility] [place] [facility] [address] [id number] [place] [address]- 3792 Apr, [facility] [place] [facility] [address] [id number], [place] [address]- 2822 Apr, [facility] [place] [facility] [address] [id number], [place] [address]- 5241 Apr, [facility] [place] [facility] [address] [id number] [place] [address]- 7361 Apr, [facility] [place] [facility] [address] [id number], [place] [address]- 8163 Apr, [facility] [place] [facility] [address] [id number] [place] [address]- 8808 Apr, [facility] [place] [facility] [address] [id number] [place] [address]- 7446 06 Apr, 2013 [facility] [place] [facility] [address] [id number] [place] [address]- 1333 10 Mar, 2013 [facility] [place] [facility] [address] [id number] [place] [address]- 9966 Mar, [facility] [place] [facility] [address] [id number] [place]40 Mar, [facility] [place] [facility] [address] [id number] [place] [address]- 3247 Mar, [facility] [place] [facility] [address] [id number] [place] [address]- 2508 Feb, [facility] [place] [facility] [address] [id number] [place] [address]- 3401 Feb, [facility] [place] [facility] [address] [id number] [place] [address]- 4173 Feb, [facility] [place] [facility] [address] [id number] [place] [address]- 8011 Feb, [facility] [place] [facility] [address] [id number] [place] [address]- 0230 14 Jan, 2013 [facility] [place] [facility] [address] [facility] [id number] [place] [address]- 4648 14 Jan, 2013 [facility] [place] [facility] [address] [id number] [place] [address]- 6718 11 Jan, 2013 [facility] [place] [facility] [address] [id number], [place] [address]- 9042 11 Jan, 2013 [facility] [place] [facility] [address] [id number] [place] [address]- 2835 10 Jan, 2013 [facility] [place] [facility] [address] [id number] [place] [address]- 6786 10 Jan, 2013 [facility] [place] [facility] [address] [id number], [place] [address]- 4613 Jan, [facility] [place] [facility] [address] [id number] [place] [address]- 6866 Jan, [facility] [address] [id number] [place] [address]- 1477 Jan, [facility] [address] [id number] [place] [address]- 6296 Dec, [facility] [address] [id number] [place] [address]- 4627 Dec, [facility] [address] [id number] [place] [address]- 5961 Dec, [facility] [address] [id number] [place] [address]- 7085 Dec, [facility] [address] [id number] [place] [address]- 7425 Nov, [facility] [address] [id number] [place] [address]- 2856 Nov, [facility] [address] [id number] [place] [address]- 2256 Nov, [facility] [address] [id number] [place] [address]- 9892 Nov, [facility] [address] [id number] [place] [address]- 3972 Oct, [facility] [address] [id number] [place] [address]- 6938 Sep, [facility] [place] [facility] [address] [id number] [place] [address]- 9448 August, [facility] [place] [facility] [address] [id number] [place] [address]- 1100 August, [facility] [place] [facility] [address] [id number] [place] [address]- 0086 August, [facility] [address] [id number] [place] [address]- 6037 August, [facility] [address] [id number] [place] [address]- 4424 August, [facility] [address] [id number] [place]21 August, [facility] [address] [id number] [place] [address]- 4110 August, [facility] [address] [id number] [place] [address]- 2972 August, [facility] [address] [id number] [place] [address]- 2486 August, [facility] [address] [id number] [place] [address]- 7997 August, [facility] [address] [id number] [place] [address]- 6672 August, [facility] [address] [id number] [place] [address]- 9740 August, [facility] [address] [id number] [place] [address]- 0790 Jul, [facility] [address] [id number] [place] [address]- 6965 Jul, [facility] [address] [id number] [place] [address]- 6313 18 Jul, 2012 [facility] [place] [facility] [address] [id number] [place] [address]- 9092 15 Jul, 2012 [facility] [place] [facility] [address] [id number] [place] [address]- 6135 Jul, [facility] [place] [facility] [address] [id number] [place] [address]- 0930 Jul, [facility] [place] [facility] [address] [id number] [place] [address]- 5484 Jul, [facility] [place] [facility] [address] [id number] [place] [address]- 6360 Jul, [facility] [address] [id number] [place] [address]- 9483 Jul, [facility] [place] [facility] [address] [id number] [place] [address]- 4649 Jul, [facility] [address] [id number] [place] [address]- 2001 Jul, [facility] [address] [id number] [place] [address]- 4468 Jun, [facility] [address] [id number] [place] [address]- 9768 Jun, [facility] [address] [facility] [id number] [place] [address]- 8958 Jun, [facility] [address] [id number] [place] [address]- 3286 Jun, [facility] [address] [id number] [place] [address]- 5647 May, [facility] [address] [id number] [place] [address]- 0779 May, [facility] [address] [facility] [id number] [place] [address]- 6913 May, [facility] [address] [id number] [place] [address]- 9219 May, [facility] [address] [id number] [place] [address]- 2139 May, [facility] [place] [facility] [address] [id number] [place] [address]- 6250 May, [facility] [place] [facility] [address] [id number] [place] [address]- 5407 Apr, [facility] [place] [facility] [address] [id number] [place] [address]- 3631 31 Apr, 2012 [facility] [place] [facility] [address] [id number] [place] [address]- 0269 30 Apr, 2012 [facility] [place] [facility] [address] [id number] [place] [address]- 7222 28 Apr, 2012 [facility] [place] [facility] [address] [id number] [place] [address]- 6225 15 Mar, 2012 [facility] [place] [facility] [address] [id number] [place] [address]- 0527 14 Mar, 2012 [facility] [place] [facility] [address] [id number] [place] [address]- 6899 Mar, [facility] [place] [facility] [address] [id number] [place] [address]- 1464 Mar, [facility] [place] [facility] [address] [id number] [place] [address]- 3371 Mar, [facility] [place] [facility] [address] [id number] [place] [address]- 0681 Mar, [facility] [place] [facility] [address] [id number] [place] [address]- 4014 Mar, [facility] [place] [facility] [address] [id number] [place] [address]- 7517 Feb, [facility] [place] [facility] [address] [id number], [place] [address]- 7057 Feb, [facility] [place] [facility] [address] [id number], [place] [address]- 3877 Feb, [facility] [place] [facility] [address] [id number] [place] [address]- 0168 Feb, [facility] [place] [facility] [address] [id number] [place] [address]- 5904 Jan, [facility] [place] [facility] [address] [id number] [place]191 Jan, [facility] [place] [facility] [address] [id number] [place] [address]- 5117 Jan, [facility] [address] [id number] [place] [address]- 0853 Jan, [facility] [place] [facility] [address] [id number] [place] [address]- 1266 Jan, [facility] [address] [id number] [place] [address]- 7055 Jan, [facility] [place] [facility] [address] [id number] [place] [address]- 2910 Dec, [facility] [address] [id number] [place] [address]- 1770 Dec, [facility] [address] [id number] [place] [address]- 3750 Nov, [facility] [address] [id number] [place] [address]- 4063 Sep, [facility] [address] [id number] [place] [address]- 5566 August, [facility] [address] [id number] [place] [address]- 1640 August, [facility] [address] [id number] [place] [address]- 6953 August, [facility] [address] [id number] [place] [address]- 7338 August, [facility] [address] [id number] [place] [address]- 6885 August, [facility] [place] [facility] [address] [id number] [place] [address]- 8782 Jun, [facility] [place] [facility] [address] [id number] [place] [address]- 5396 Jun, [facility] [place] [facility] [address] [id number] [place] [address]- 5713 Apr, [facility] [place] [facility] [address] [id number] [place] [address]- 0748 Apr, [facility] [place] [facility] [address] [id number] [place] [address]- 9994 23 Mar, 2011 [facility] [place] [facility] [address] [id number] [place] [address]- 0614 Feb, [facility] [place] [facility] [address] [id number] [place] [address]- 2222 14 Feb, 2011 [facility] [place] [facility] [address] [id number] [place] [address] 14 Feb, 2011 [facility] [place] [facility] [address] [id number] [place] [address] 17 Jan, 2011 [facility] [place] [facility] [address] [id number] [place] [address] 15 Jan, 2011 [facility] [place] [facility] [address] [id number] [place] [address] 15 Jan, 2011 [facility] [place] [facility] [address] [id number] [place] [address] 14 Jan, 2011 [facility] [place] [facility] [address] [id number] [place] [address] 15 May, 2010 [facility] [place] [facility] [address] [id number], [place] [address] Mar, [facility] [place] [facility] [address] [id number], [place] [address] Oct, [facility] [place] [facility] [address] [id number] [place] [address] Sep, [facility] [place] [facility] [address] [id number], [place] [address] Mar, [facility] [place] [facility] [address] [id number], [place] [address] 27 Jan, 2009 [facility] [place] [facility] [address] [id number][place] [address] Jan, [facility] [address] [facility] [id number] [place] [address] May, IMMUNIZATIONS No Known Immunizations SOCIAL HISTORY Never Assessed REASON FOR VISIT Congestion started yesterday. Nose running during day and stopped up at night. Feels short of breath when trying to breath. Eyes watering.Headache CBrumbackRN PLAN OF CARE VITAL SIGNS Height 62 in 2017-03-20 Weight 176.6 lbs 2017-03-20 Temperature 98.2 degrees Fahrenheit 2017-03-20 Heart Rate 76 bpm 2017-03-20 Respiratory Rate 20 2017-03-20 BMI 32.30 kg/m2 2017-03-20 Blood pressure systolic 146 mmHg 2017-03-20 Blood pressure diastolic 96 mmHg 2017-03-20 MEDICATIONS Medication Instructions Dosage Frequency Start Date End Date Duration Status Amoxicillin 500 mg Orally 3 times a day 1 capsule 8h Mar, Mar, 10 day(s) Active Pravastatin Sodium 20 mg TAKE ONE TABLET BY MOUTH AT BEDTIME 30 Active Amlodipine Besylate 5 mg Orally Once a day 1 tablet 24h Active PredniSONE 20 mg Orally Once a day 2 tablets 24h Mar, Mar, 05 days Active Flonase Allergy Relief 50 MCG/ACT Nasally Once a day 1 spray in each nostril 24h May, 30 day(s) Active Fish Oil 1000 MG Orally Once a day 1 capsule 24h Not-Taking Hydrocodone-Acetaminophen 5-325 MG Orally 3 -4 times a day prn. must last 4 weeks 1 tablet as needed Feb, 28 days Active Klor-Con 10 10 MEQ Orally Once a day 2 tablet with food 24h Active Ibuprofen 800 MG Orally PRN for pain 1 tablet as needed Active Triamterene-HCTZ 37.5-25 MG Orally Once a day 1 tablet in the morning 24h 30 Active Cyclobenzaprine HCl 10 mg orally tid prn 1 tablet Active Meclizine HCl 25 MG Orally Once a day 1 tablet as needed 24h Active Gabapentin 100 mg Orally in the evening 1 capsule Jul, 14 days Not-Taking Lidocaine 4 % Externally Three times a day prn 1 application to affected area as needed Feb, Active RESULTS No Results PROCEDURES No Known procedures INSTRUCTIONS MEDICATIONS ADMINISTERED No Known Medications MEDICAL (GENERAL) HISTORY Type Description Date Medical History hypertension Medical History Colposcopy with loop electrode excision of the cervix was performed 06/2012, mild squamous atypia (no definite dyplasia). Performed at [facility] Dr. Joy. Medical History Acute suppurative otitis [...]
--- OUTSIDE RECORDS SUMMARY | 2018-06-10 05:29 | XMS REPORT ---
Author Author SIMA HODGES [facility] Address [address] [place] [address] Care Team Providers Care Quality Control Checker Name Role Phone SIMA HODGES Unavailable PROBLEMS Type Condition ICD9-CM Code YNG64-EN Code Onset Dates Condition Status SNOMED Code Problem Anxiety F41.9 Active 64248707 Problem Abnormal glucose R73.09 Active 257245379 Problem Chronic pain due to trauma G89.21 Active 849894725 Problem Hypokalemia E87.6 Active 77094684 Problem Neck pain M54.2 Active 24226587 Problem Neuroforaminal stenosis of spine M99.89 Active 831591286257 Problem Mixed hyperlipidemia E78.2 Active 35370653 Problem Essential hypertension I10 Active 29033235 ALLERGIES No Information ENCOUNTERS Encounter Location Date Diagnosis [place] [address] [address] August, [facility] [address] [address]- [address] August, [facility] [address] [place] [id number] [place] [address] 82314- 3193 August, Neuroforaminal stenosis of spine M99.89 [facility] [address] [id number] [place] [address] 54078- 9079 August, Essential hypertension I10 ; Hypokalemia E87.6 and Mixed hyperlipidemia E78.2 [facility] [address] 80078- 6746 Jul, [facility] [id number] [place] [address] 02978- 8566 Jul, Neuroforaminal stenosis of spine M99.89 [facility] [address] [place] [id number] [place] [address] Jul, Lateral epicondylitis, right elbow M77.11 [facility] [address] 11091- 9553 Jul, [facility] [address] [place] [id number] [place] [address] 74827- 8738 Jun, High ankle sprain of right lower extremity, initial encounter S93.431A [place] [address] 44053- 7644 Jun, Essential hypertension I10 [place] [address] 57785- 4843 Jun, [place] [address] [place] [id number] [place] [address] 08766- 0030 Jun, [place] [address] 53891- 9788 Jun, Neuroforaminal stenosis of spine M99.89 [place] [address] [place] [id number] [place] [address] 41242- 2813 Jun, Pain of right upper extremity M79.601 and Essential hypertension I10 [place] [address] [place] [id number] [place] [address] 11026- 4143 Jun, [place] [address] [place] [id number] [place] [address] 45311- 6062 Jun, Dysuria R30.0 ; Acute cystitis with hematuria N30.01 and Screen for STD (sexually transmitted disease) Z11.3 [place] [address] [place] [id number] [place] [address] 05172- 2607 May, Chronic pain due to trauma G89.21 [place] [address] [place] [id number] [place] [address] 30147- 4930 May, Essential hypertension I10 [place] [address] 97956- 5714 May, Neuroforaminal stenosis of spine M99.89 [place] [address] [place] [id number] [place] [address] 15354- 6588 Apr, Allergic reaction, initial encounter T78.40XA [place] [address] [place] [id number] [place] [address] 00392- 4539 Apr, Low back pain, unspecified back pain laterality, unspecified chronicity, with sciatica presence unspecified M54.5 ; Acute cystitis with hematuria N30.01 ; Neuroforaminal stenosis of spine M99.89 ; Bilateral acute serous otitis media, recurrence not specified H65.03 ; Mixed hyperlipidemia E78.2 ; Essential hypertension I10 ; Immunization counseling Z71.89 and Encounter for immunization Z23 [place] [address] [place] [id number] [place] [address] 55445- 8431 Apr, Neck pain M54.2 [place] [address] 35845- 1467 Mar, Neuroforaminal stenosis of spine M99.89 [place] [address] [place] [id number] [place] [address] 62670- 1396 Mar, Pharyngitis due to other organism J02.8 [place] [address] [place] [id number] [place] [address] 12331- 6696 Feb, Neuroforaminal stenosis of spine M99.89 [place] [address] [place] [id number] [place] [address] 64738- 5300 08 Feb, 2017 UTI (urinary tract infection) N39.0 [place] [address] [place] [id number] [place] [address] 08501- 9436 07 Feb, 2017 Recent urinary tract infection Z87.440 ; Neuroforaminal stenosis of spine M99.89 ; Neck pain M54.2 ; Chronic pain due to trauma G89.21 and Recurrent UTI N39.0 [place] [address] [place] [id number] [place] [address] 31343- 4038 Feb, [place] [address] [place] [id number] [place] [address] 14650- 7254 Jan, Neuroforaminal stenosis of spine M99.89 [place] [address] [place] [id number] [place] [address] 95876- 5492 28 Dec, 2016 Neuroforaminal stenosis of spine M99.89 [place] [address] [place] [id number] [place] [address] 62499- 8346 18 Dec, 2016 Acute seasonal allergic rhinitis due to pollen J30.1 [place] [address] [place] [id number] [place] [address] 57517- 9874 08 Dec, 2016 [place] [address] 69251- 8831 08 Dec, 2016 Acute seasonal allergic rhinitis, unspecified trigger J30.2 ; Allergic conjunctivitis of both eyes H10.13 and Dysfunction of both eustachian tubes H69.83 [place] [address] [place] [id number] [place] [address] 57925- 6843 07 Dec, 2016 [place] [address] [place] [id number] [place] [address] 68821- 4793 Dec, Nevus D22.9 [place] [address] [place] [id number] [place] [address] 39536- 0901 Nov, Chronic pain due to trauma G89.21 and Neuroforaminal stenosis of spine M99.89 [place] [address] [place] [id number] [place] [address] 19766- 9835 Nov, Neuroforaminal stenosis of spine M99.89 ; Essential hypertension I10 ; Mixed hyperlipidemia E78.2 ; Hypokalemia E87.6 ; Neck pain M54.2 and Nevus D22.9 [place] [address] [place] [id number] [place] [address] 53906- 2653 Oct, Neuroforaminal stenosis of spine M99.89 [place] [address] [place] [id number] [place] [address] 02484- 8931 Sep, Neuroforaminal stenosis of spine M99.89 [facility] [address] [facility] [place] [id number] [address] 5546 Sep, [facility] [address] [facility] [place] [place] [id number] [place] [address] 24001- 6886 August, [facility] [address] [facility] [place] [id number] [place] [address] 27718- 7656 August, Neck pain M54.2 and Neuroforaminal stenosis of spine M99.89 [facility] [address] [facility] [place] [id number] [place] [address] 51303- 6606 August, Routine gynecological examination Z01.419 and Screening breast examination Z12.39 [facility] [address] [facility] [place] [id number] [place] [address] 31012- 3887 Jul, [facility] [address] [place] [id number] [place] [address] 71693- 1487 Jul, [facility] [address] [place] [id number] [place] [address] 58124- 2974 Jul, Neuroforaminal stenosis of spine M99.89 [facility] [address] [place] [id number] [place] [address] 36675- 5007 Jul, [facility] [address] [place] [id number] [place] [address] 31988- 5425 Jul, 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 [facility] [address] [facility] [id number] [address]- 1153 Jul, [facility] [address] [facility] [id number] [address] 2546 Jul, [facility] [address] [facility] [place] [id number] [place] [address] 16900- 2546 Jun, Neuroforaminal stenosis of spine M99.89 [facility] [address] [facility] [id number] [address]- 2206 Jun, Uterine leiomyoma, unspecified location D25.9 and Allergic reaction caused by a drug, initial encounter T78.40XA [place] [address] [place] [id number] [place] [address] 50938- 1995 Jun, [place] [address] [place] [id number] [place] [address] 81730- 8069 May, UTI symptoms R39.9 and Pain of right sacroiliac joint M53.3 [place] [address] 41555- 6118 May, Neuroforaminal stenosis of spine M99.[address] 14555- 7740 May, [address] 89990- 2225 May, Acute mucoid otitis media of left ear H65.112 and Acute non- recurrent maxillary sinusitis J01.00 [place] [address] [place] [id number] [place] [address] 74189- 9590 May, Acute bacterial conjunctivitis of both eyes H10.33 ; Left arm pain M79.602 and Hypokalemia E87.6 [place] [address] [place] [id number] [place] [address] 89478- 4165 Apr, [place] [address] [place] [id number] [place] [address] 75780- 2994 Apr, Neuroforaminal stenosis of spine M99.89 ; Neck pain M54.2 ; Chronic pain due to trauma G89.21 ; Mixed hyperlipidemia E78.2 ; Essential hypertension I10 and Hypokalemia E87.[address] 59968- 4386 Mar, Oral candidiasis B37.0 ; Neuroforaminal stenosis of spine M99.89 ; Neck pain M54.2 and Chronic pain due to trauma G89.21 [place] [address] [place] [id number] [place] [address] 81849- 2590 Feb, [facility] [id number] [place] [address] 71072- 0739 Feb, [facility] [address] [place] [id number] [place] [address] 48105- 4309 Feb, UTI (urinary tract infection) N39.0 [facility] [address] [place] [id number] [place] [address] 77615- 0511 Feb, Dysuria R30.0 [facility] [id number] [place] [address] 56950- 9250 Feb, Dysuria R30.0 [facility] [address] [place] [id number] [place] [address] 84213- 8523 Feb, Neuroforaminal stenosis of spine M99.89 ; Neck pain M54.2 ; Essential hypertension I10 ; Chronic pain due to trauma G89.21 ; Dysuria R30.0 ; Abnormal MRI, shoulder R93.8 and Acute cystitis without hematuria N30.00 [facility] [id number] [place] [address] 43517- 8311 Jan, [facility] [address] [place] [id number] [place] [address] 67071- 0793 Jan, [facility] [address] [place] [id number] [place] [address] 50653- 7989 Jan, [facility] [address] [place] [id number] [place] [address] 07701- 7553 Jan, Abnormal MRI R93.8 [facility] [id number] [place] [address] 38198- 2337 Dec, [facility] [id number] [place] [address] 83416 -1039 Dec, Acute pain of left shoulder M25.512 [facility] [address] [place] [id number] [place] [address] 38438- 3124 Dec, [facility] [address] [address]- 4965 08 Dec, 2015 [facility] [address] [place] [id number] [place] [address] 37054- 6286 07 Dec, 2015 Acute pain of left shoulder M25.512 [facility] [address] [place] [id number] [address]- 2046 Nov, [facility] [address] [place] [id number] [place] [address] 63878- 7857 Nov, Neuroforaminal stenosis of spine M99.89 ; Neck pain M54.2 ; Abnormal mammogram R92.8 ; Essential hypertension I10 and Chronic pain due to trauma G89.21 [facility] [id number] [place] [address] 82159- 4103 Nov, [facility] [address] [place] [id number] [place] [address] 27876- 9863 Oct, Acute stress disorder F43.0 [facility] [address] [id number] [place] [address] 39965- 6867 Oct, [facility] [address] [place] [id number] [place] [address] 88695- 7525 Oct, [facility] [id number] [address]- 4700 Oct, [facility] [id number] [place] [address] 97233- 3404 Sep, [facility] [id number] [address]- 0687 August, [facility] [id number] [place] [address] 01522- 2898 Jul, Neuroforaminal stenosis of spine M99.89 ; Neck pain M54.2 ; Abnormal mammogram R92.8 and Essential hypertension I10 [facility] [address] [address]- 2348 Jul, [place] [id number] [address]- 0384 Jul, [facility] [address] [place] [id number] [place] [address] 44797- 6836 Jul, Abnormal mammogram R92.8 [facility] [id number] [place] [address] 49340 2549 Jul, [facility] [address] [place] [id number] [place] [address] 69135 2543 Jul, UTI (urinary tract infection) N39.0 [facility] [address] [place] [id number] [place] [address] 17256- 9731 Jul, Dysuria R30.0 [facility] [address] [place] [id number] [place] [address] 56514- 1446 Jun, [facility] [address] [place] [id number] [place] [address] 95553- 2346 Jun, [facility] [id number] [place] [address] 65976 254 Jun, Hypokalemia E87.6 and Hematuria R31.9 [facility] [id number] [place] [address] 05654 2547 Jun, Hypokalemia E87.6 [facility] [address] [address] 2546 Jun, [facility] [id number] [place] [address] 82947 2546 18 Jun, 2015 Hypokalemia E87.6 [facility] [id number] [place] [address] 04862 2546 18 Jun, 2015 Hypokalemia E87.6 [facility] [address] [address] 2546 15 Jun, 2015 Neuroforaminal stenosis of spine M99.89 ; Hypokalemia E87.6 ; Neck pain M54.2 ; Essential hypertension I10 ; Mixed hyperlipidemia E78.2 and Screening breast examination Z12.39 [facility] [address] [place] [id number] [place] [address] 17370- 7252 Jun, Dysuria R30.0 ; UTI (urinary tract infection) N39.0 and Hematuria R31.9 [place] [address] 49071- 3150 May, [facility] [address] 63721- 7188 May, High risk sexual behavior Z72.51 ; Hypokalemia E87.6 ; Neuroforaminal stenosis of spine M99.89 ; Neck pain M54.2 ; Essential hypertension I10 ; Mixed hyperlipidemia E78.2 ; STD exposure Z20.2 and Concern about STD in female without diagnosis Z71.1 [place] [address] 83718- 8618 16 May, 2015 Neuroforaminal stenosis of spine M99.89 ; Neck pain M54.2 ; Hypokalemia E87.6 ; Essential hypertension I10 and Mixed hyperlipidemia E78.2 [place] [address] 84733- 5459 May, [facility] [address] [place] [place] [id number] [place] [address] 28735 -8895 May, High risk sexual behavior Z72.51 ; STD exposure Z20.2 and Concern about STD in female without diagnosis Z71.1 [place] [address] [place] [id number] [place] [address] 63577- 0298 May, [facility] [address] 71120- 4802 Apr, Neuroforaminal stenosis of spine M99.89 ; Mixed hyperlipidemia E78.2 ; Essential hypertension I10 and Hypokalemia E87.6 [place] [address] 89394- 9841 Mar, [place] [address] [place] [id number] [place] [address] 80358- 8003 Mar, Hypokalemia E87.6 [place] [address] [place] [id number] [place] [address] 32046- 9986 Mar, Neuroforaminal stenosis of spine M99.89 ; Mixed hyperlipidemia E78.2 ; Neck pain M54.2 ; Essential hypertension I10 ; Abnormal fasting glucose R73.09 ; Hypokalemia E87.6 and Constipation K59.00 [place] [address] [place] [id number] [place] [address] 62759- 4643 Feb, Neuroforaminal stenosis of spine M99.89 ; Mixed hyperlipidemia E78.2 ; Neck pain M54.2 ; Essential hypertension I10 ; Abnormal fasting glucose R73.09 ; Hypokalemia E87.6 and Constipation K59.00 [place] [address] [place] [id number] [place] [address] 64376- 1012 Feb, Elevated fasting blood sugar R73.01 [place] [address] [place] [id number] [place] [address] 85891- 6970 Feb, Elevated fasting blood sugar R73.01 [place] [address] [place] [id number] [place] [address] 44050- 8874 Feb, Hair loss L65.9 [place] [address] [place] [id number] [place] [address] 33443- 4980 Feb, Sinusitis J32.9 ; Essential hypertension I10 and Hair loss L65.9 [place] [address] [place] [id number] [place] [address] 09735- 5471 Jan, [place] [address] 34477- 1917 Jan, Essential hypertension I10 ; Neuroforaminal stenosis of spine M99.89 ; Neck pain M54.2 ; Mixed hyperlipidemia E78.2 and Anxiety F41.9 [place] [address] [place] [id number] [place] [address] [address]46 Jan, [facility] [id number] [place] [address] 97779- 8459 Jan, Mixed hyperlipidemia E78.2 ; Essential (primary) hypertension I10 ; Strain of muscle, fascia and tendon at neck level, subsequent encounter S16.1XXD and Tension-type headache, unspecified, not intractable G44.209 [place] [address] [place] [id number] [place] [address] 27101- 0776 Dec, Lumbar back pain 724.2 and Neuroforaminal stenosis of spine 724.00 [place] [address] [place] [id number] [place] [address] 73335- 6654 Nov, [place] [id number] [place] [address] 64332- 5912 Nov, Lumbar back pain 724.2 and Neuroforaminal stenosis of spine 724.00 [place] [address] [place] [id number] [place] [address] 21007- 7671 Nov, Edema 782.3 ; Lumbar back pain 724.2 ; Essential hypertension, benign 401.1 ; Hyperlipemia 272.4 ; Neuroforaminal stenosis of spine 724.00 and Post-concussion headache 339.20 [place] [id number] [place] [address] 82187- 1196 Nov, [place] [address] [address]- 9001 Nov, [place] [id number] [place] [address] 25487- 6337 Oct, Essential hypertension, benign 401.1 [place] [id number] [place] [address] 67403- 6558 Oct, Edema 782.3 ; Lumbar back pain 724.2 ; Essential hypertension, benign 401.1 ; Hyperlipemia 272.4 ; Neuroforaminal stenosis of spine 724.00 and Post-concussion headache 339.20 [place] [address] [address]- 2393 Oct, [facility] [address] [address]- 4855 Oct, Edema 782.3 [facility] [id number] [place] [address] 92023- 8257 Oct, Lumbar back pain 724.2 [facility] [address] [place] [id number] [place] [address] 59705- 3992 Oct, Cervicalgia 723.1 ; Lumbar back pain 724.2 and High risk medication use V58.69 [facility] [address] [id number] [place] [address] 38883- 4437 Sep, [facility] [id number] [place] [address] 22566- 9294 Sep, Lumbar strain 847.2 [facility] [id number] [place] [address] 16249- 7771 August, Edema 782.3 and Eustachian tube dysfunction 381.81 [facility] [id number] [place] [address] 74893- 4353 August, [facility] [id number] [place] [address] 53226- 2351 August, Eustachian tube dysfunction 381.81 [facility] [address] [address]- 1890 Jul, Otalgia 388.70 and Otitis media 382.9 [facility] [id number] [address] Jul, [facility] [id number] [place] [address] Jul, [facility] [id number] [address] Jul, [facility] [id number] [place] [address], [place] [address] 14 Jul, 2014 [facility] [place] [facility] [address] [id number] [place] [address] 13 Jul, 2014 [facility] [place] [facility] [address] [id number] [place] [address] 27 Jun, 2014 [facility] [place] [facility] [address] [id number] [place] [address] 27 Jun, 2014 [facility] [place] [facility] [address] [id number] [place] [address] 16 Jun, 2014 [facility] [place] [facility] [address] [id number] [place] [address] May, 2014 [facility] [place] [facility] [address] [facility] [place] [id number] [place] [address] May, 2014 [facility] [place] [facility] [address] [facility] [place] [id number] [place] [address] May, 2014 [facility] [place] [facility] [address] [facility] [place] [id number] [place] [address]- [address] May, 2014 [facility] [place] [facility] [address] [facility] [place] [id number] [place] [address]- [address] May, 2014 [facility] [place] [facility] [address] [facility] [place] [id number] [place] [address] May, 2014 [facility] [place] [facility] [address] [facility] [place] [id number] [place] [address]- [address] May, 2014 [facility] [place] [facility] [address] [id number] [place] [address] May, 2014 [facility] [place] [facility] [address] [id number] [place] [address] May, 2014 [facility] [place] [facility] [address] [facility] [place] [id number] [place] [address]- [address] May, 2014 [facility] [place] [facility] [address] [facility] [place] [id number] [place] [address]- [address] Apr, [facility] [place] [facility] [address] [id number] [place] [address]- [address] Apr, [facility] [place] [facility] [address] [id number] [place] [address]- [address] Apr, [facility] [place] [facility] [address] [id number] [place] [address] Apr, [facility] [place] [facility] [address] [id number] [place] [address]- [address] Apr, [facility] [place] [facility] [address] [id number] [place] [address]- [address] Apr, [facility] [place] [facility] [address] [id number] [place] [address] Apr, [facility] [place] [facility] [address] [id number] [place] [address]- [address] Apr, [facility] [place] [facility] [address] [id number] [place] [address] Apr, [facility] [place] [facility] [address] [id number] [place] [address] 3[address] Apr, [facility] [place] [facility] [address] [id number] [place] [address] 6511 Apr, [facility] [place] [facility] [address] [id number], [place] [address] Apr, [facility] [place] [facility] [address] [id number], [place] [address] Apr, [facility] [place] [facility] [address] [id number] [place] [address] 9685 Apr, [facility] [place] [facility] [address] [id number] [place] [address] 6031 Apr, [facility] [place] [facility] [address] [id number] [place] [address] 3947 Mar, [facility] [place] [facility] [address] [id number] [place] [address] 6514 Mar, [facility] [place] [facility] [address] [id number] [place] [address] Mar, [facility] [place] [facility] [address] [id number] [place] [address] Mar, [facility] [place] [facility] [address] [id number] [place] [address] 1853 Feb, [facility] [place] [facility] [address] [id number] [place] [address]- 2291 Feb, [facility] [place] [facility] [address] [id number] [place] [address] Feb, [facility] [place] [facility] [address] [facility] [place] [id number] [place] [address] 7303 Feb, [facility] [place] [facility] [address] [facility] [place] [id number] [place] [address]- 4786 Jan, [facility] [place] [facility] [address] [id number] [place] [address]- 1191 Jan, [facility] [place] [facility] [address] [facility] [place] [id number] [place] [address]- 1420 Jan, [facility] [place] [facility] [address] [facility] [place] [id number] [place] [address]- 4138 Jan, [facility] [place] [facility] [address] [facility] [place] [id number] [place] [address]- 2348 Jan, [facility] [place] [facility] [address] [facility] [place] [place] [id number] [address]- [address] Jan, [facility] [place] [facility] [address] [id number] [place] [address]- 3840 Jan, [facility] [place] [facility] [address] [facility] [place] [id number] [place] [address] Jan, [facility] [place] [facility] [address] [id number] [place] [address]- 1633 Dec, [facility] [place] [facility] [address] [id number] [place] [address]- 0673 Dec, [facility] [place] [facility] [address] [id number] [place] [address]- 0330 Dec, [facility] [place] [facility] [address] [id number] [place] [address]- 6635 Dec, [facility] [place] [facility] [address] [id number] [place] [address]- 6549 Oct, [facility] [place] [facility] [address] [id number] [place] [address]- 5509 Oct, [facility] [place] [facility] [address] [id number] [place] [address]- 5510 Oct, [facility] [place] [facility] [address] [id number] [place] [address]- 3986 Oct, [facility] [place] [facility] [address] [id number] [place] [address]- 1008 Oct, [facility] [place] [facility] [address] [id number] [place] [address]- 9802 Oct, [facility] [place] [facility] [address] [id number] [place] [address]- 2071 Oct, [facility] [place] [facility] [address] [id number] [place] [address]- 7086 Oct, [facility] [place] [facility] [address] [id number] [place] [address]- 1429 Sep, [facility] [place] [facility] [address] [id number] [place] [address]- 3938 Sep, [facility] [place] [facility] [address] [id number] [place] [address]- 1341 Sep, [facility] [place] [facility] [address] [id number] [place] [address]- 9904 Sep, [facility] [place] [facility] [address] [id number] [place] [address]- 3867 Sep, [facility] [place] [facility] [address] [id number] [place] [address]- 5530 Sep, [facility] [place] [facility] [address] [id number] [place] [address]- 2473 Sep, [facility] [place] [facility] [address] [id number] [place] [address]- 5954 Sep, [facility] [place] [facility] [address] [id number] [place] [address]- 5728 Sep, [facility] [place] [facility] [address] [id number] [place] [address]- 2100 Sep, [facility] [place] [facility] [address] [id number] [place] [address]- 8938 August, [facility] [place] [facility] [address] [id number] [place] [address]- 8955 August, [facility] [place] [facility] [address] [id number] [place] [address]- 3451 August, [facility] [place] [facility] [address] [id number] [place] [address]- 8629 August, [facility] [place] [facility] [address] [id number] [place] [address]- 7613 August, [facility] [place] [facility] [address] [id number] [place] [address]- 1647 August, [facility] [place] [facility] [address] [id number] [place] [address]- 5784 August, [facility] [place] [facility] [address] [id number] [place] [address]- 6588 August, [facility] [place] [facility] [address] [id number] [place] [address]- 7863 August, [facility] [place] [facility] [address] [id number] [place] [address]- 6449 August, [facility] [place] [facility] [address] [id number] [place] [address]- 3674 August, [facility] [address] [id number] [place] [address]- 5964 August, [facility] [place] [facility] [address] [id number] [place] [address]- 8234 Jul, [facility] [place] [facility] [address] [id number] [place] [address]- 0963 Jul, [facility] [place] [facility] [address] [id number] [place] [address]- 5251 Jul, [facility] [place] [facility] [address] [id number] [place] [address]- 6256 Jul, [facility] [place] [facility] [address] [id number] [place] [address]- 2285 Jul, [facility] [place] [facility] [address] [id number] [place] [address]- 2326 Jul, [facility] [place] [facility] [address] [id number] [place] [address]- 6970 Jun, [facility] [place] [facility] [address] [id number] [place] [address]- 6892 Jun, [facility] [place] [facility] [address] [id number] [place] [address]- 4295 May, [facility] [place] [facility] [address] [id number] [place] [address]- 6298 May, [facility] [place] [facility] [address] [id number] [place] [address]- 0322 Apr, [facility] [place] [facility] [address] [id number] [place] [address]- 9894 Apr, [facility] [place] [facility] [address] [id number] [place] [address]- 0539 Apr, [facility] [place] [facility] [address] [id number] [place] [address]- 8005 Apr, [facility] [address] [id number] [place] [address]- 7437 Apr, [facility] [place] [facility] [address] [id number] [place] [address]- 8660 Apr, [facility] [place] [facility] [address] [id number] [place] [address]- 8913 Apr, [facility] [place] [facility] [address] [id number] [place] [address]- 5284 Apr, [facility] [place] [facility] [address] [id number] [place] [address]- 4057 Apr, [facility] [place] [facility] [address] [id number] [place] [address]- 5056 Apr, [facility] [place] [facility] [address] [id number] [place] [address]- 2483 Apr, [facility] [place] [facility] [address] [id number] [place] [address]- 9998 Apr, [facility] [place] [facility] [address] [id number] [place] [address]- 8481 Apr, [facility] [place] [facility] [address] [id number], [place] [address]- 3773 Mar, [facility] [place] [facility] [address] [id number], [place] [address]- 5780 Mar, [facility] [place] [facility] [address] [id number], [place] [address]- 4867 Mar, [facility] [place] [facility] [address] [id number] [place] [address]- 7021 Mar, [facility] [place] [facility] [address] [id number] [place] [address]- 5822 Feb, [facility] [place] [facility] [address] [id number] [place] [address]- 6561 Feb, [facility] [place] [facility] [address] [id number] [place] [address]- 7892 08 Feb, 2013 [facility] [place] [facility] [address] [id number] [place] [address]- 3750 08 Feb, 2013 [facility] [place] [facility] [address] [id number] [place] [address]- 7305 14 Jan, 2013 [facility] [place] [facility] [address] [id number] [place] [address]- 1626 14 Jan, 2013 [facility] [place] [facility] [address] [id number] [place] [address]- 1662 Jan, [facility] [place] [facility] [address] [id number] [place] [address]- 3660 11 Jan, 2013 [facility] [place] [facility] [address] [id number] [place] [address]- 5111 Jan, [facility] [place] [facility] [address] [id number] [place] [address]- 2399 10 Jan, 2013 [facility] [place] [facility] [address] [id number] [place] [address]- 5174 Jan, [facility] [place] [facility] [address] [id number] [place] [address]- 1504 Jan, [facility] [place] [facility] [address] [id number] [place] [address]- 6356 Jan, [facility] [place] [facility] [address] [id number] [place] [address]- 7994 26 Dec, 2012 [facility] [place] [facility] [address] [id number] [place] [address]- 2542 16 Dec, 2012 [facility] [place] [facility] [address] [id number] [place] [address]- 5756 16 Dec, 2012 [facility] [place] [facility] [address] [id number] [place] [address]- 2424 13 Dec, 2012 [facility] [place] [facility] [address] [id number] [place] [address]- 3408 17 Nov, 2012 [facility] [place] [facility] [address] [id number] [place] [address]- 1174 Nov, [facility] [address] [id number] [place] [address]- 7149 Nov, [facility] [address] [id number] [place] [address]- 0083 Nov, [facility] [address] [id number] [place] [address]- 9566 Oct, [facility] [address] [id number] [place] [address]- 0848 Sep, [facility] [address] [id number] [place] [address]- 6015 August, [facility] [address] [id number] [place] [address]- 2555 August, [facility] [address] [id number] [place] [address]- 0606 August, [facility] [address] [id number] [place] [address]- 2335 August, [facility] [address] [id number] [place] [address]- 4005 August, [facility] [address] [id number] [place] [address]- 7361 August, [facility] [address] [id number] [place] [address]- 2421 August, [facility] [address] [id number] [place] [address]- 6807 August, [facility] [address] [id number] [place] [address]- 7847 August, [facility] [address] [id number] [place] [address]- 5756 August, [facility] [address] [id number] [place] [address]- 3345 August, [facility] [address] [id number] [place] [address]- 7347 August, [facility] [address] [id number] [place] [address]- 3317 Jul, [facility] [address] [id number] [place] [address]- 8244 Jul, [facility] [address] [id number] [place] [address]- 1979 Jul, [facility] [address] [id number] [place] [address]- 2514 Jul, [facility] [address] [id number] [place] [address]- 8644 Jul, [facility] [address] [id number] [place] [address]- 0179 Jul, [facility] [address] [id number] [place] [address]- 3976 Jul, [facility] [address] [id number] [place] [address]- 7190 Jul, [facility] [place] [facility] [address] [id number] [place] [address]- 7363 Jul, [facility] [address] [id number] [place] [address]- 4227 Jul, [facility] [place] [facility] [address] [id number] [place] [address]- 0637 Jul, [facility] [place] [facility] [address] [id number] [place] [address]- 1518 Jun, [facility] [place] [facility] [address] [id number] [place] [address]- 4734 Jun, [facility] [place] [facility] [address] [id number] [place] [address]- 8180 Jun, [facility] [place] [facility] [address] [id number] [place] [address] 2546 Jun, [facility] [address] [id number] [place] [address]- 7646 28 May, 2012 [facility] [place] [facility] [address] [id number] [place] [address] 2546 14 May, 2012 [facility] [place] [facility] [address] [id number] [place] [address]- 7836 05 May, 2012 [facility] [place] [facility] [address] [id number] [place] [address]- 2546 May, [facility] [place] [facility] [address] [id number] [place] [address]- 4036 May, [facility] [place] [facility] [address] [id number] [place] [address]- 8706 May, [facility] [place] [facility] [address] [id number] [place] [address]- 2110 Apr, [facility] [place] [facility] [address] [id number] [place] [address]- 8247 Apr, [facility] [place] [facility] [address] [id number] [place] [address]- 7709 30 Apr, 2012 [facility] [place] [facility] [address] [id number] [place] [address]- 1066 Apr, [facility] [place] [facility] [address] [id number] [place] [address]- 3186 15 Mar, 2012 [facility] [place] [facility] [address] [id number] [place] [address] 2546 14 Mar, 2012 [facility] [place] [facility] [address] [id number] [place] [address] 2546 14 Mar, 2012 [facility] [place] [facility] [address] [id number] [place] [address] 2546 14 Mar, 2012 [facility] [place] [facility] [address] [id number] [place] [address]- 7062 Mar, [facility] [place] [facility] [address] [id number] [place] [address]- 0841 Mar, [facility] [place] [facility] [address] [id number] [place] [address]- 2400 Mar, [facility] [place] [facility] [address] [id number] [place] [address]- 0055 Feb, [facility] [place] [facility] [address] [id number] [place] [address]- 5170 Feb, [facility] [place] [facility] [address] [id number] [place] [address]- 5989 Feb, [facility] [place] [facility] [address] [id number] [place] [address]- 9167 Feb, [facility] [place] [facility] [address] [facility] [id number] [place] [address]- 8221 Jan, [facility] [place] [facility] [address] [id number], [place] [address]- 4535 Jan, [facility] [place] [facility] [address] [id number] [place] [address]- 4199 Jan, [facility] [place] [facility] [address] [facility] [id number] [place] [address]- 1053 Jan, [facility] [place] [facility] [address] [id number], [place] [address]- 6982 Jan, [facility] [place] [facility] [address] [id number], [place] [address]- 5662 Jan, [facility] [place] [facility] [address] [id number], [place] [address]- 6941 Dec, [facility] [place] [facility] [address] [id number], [place] [address]- 2560 Dec, [facility] [place] [facility] [address] [facility] [id number], [place] [address]- 2022 Nov, [facility] [place] [facility] [address] [id number] [place] [address]- 1936 Sep, [facility] [place] [facility] [address] [id number] [place] [address]- 7509 August, [facility] [place] [facility] [address] [id number] [place] [address]- 8758 August, [facility] [place] [facility] [address] [id number] [place] [address]- 3212 August, [facility] [place] [facility] [address] [id number] [place] [address]- 4340 August, [facility] [place] [facility] [address] [id number] [place] [address]- 7202 August, [facility] [place] [facility] [address] [id number] [place] [address]- 0141 Jun, [facility] [place] [facility] [address] [id number] [place] [address]- 3801 Jun, [facility] [place] [facility] [address] [id number] [place] [address]- 1651 Apr, [facility] [place] [facility] [address] [id number] [place] [address]- 9423 Apr, [facility] [place] [facility] [address] [facility] [id number] [place] [address]- 2984 Mar, [facility] [place] [facility] [address] [id number] [place] [address]- 2289 Feb, [facility] [place] [facility] [address] [id number] [place] [address]- 4816 Feb, [facility] [place] [facility] [address] [id number] [place] [address]- 0489 14 Feb, 2011 [facility] [place] [facility] [address] [id number] [place] [address]- 6023 17 Jan, 2011 [facility] [place] [facility] [address] [id number] [place] [address]7 15 Jan, 2011 [facility] [id number] [address]- 2546 15 Jan, 2011 [facility] [id number], [place] [address]- 2546 14 Jan, 2011 [facility] [id number] [address] May, [facility] [id number] [address] Mar, [facility] [id number] [address] Oct, [facility] [id number] [place] [address] Sep, [facility] [id number] [place] [address] Mar, [facility] [id number] [address] Jan, [facility] [id number] [address] Jan, [facility] [id number] [address] May, IMMUNIZATIONS No Known Immunizations SOCIAL HISTORY Never Assessed REASON FOR VISIT Waiting for call back PLAN OF CARE VITAL SIGNS MEDICATIONS Unknown Medications RESULTS No Results PROCEDURES No Known procedures INSTRUCTIONS MEDICATIONS ADMINISTERED No Known Medications MEDICAL (GENERAL) HISTORY Type Description Date Medical History hypertension Medical History Colposcopy with loop electrode excision of the cervix was performed 06/2012, mild squamous atypia (no definite dyplasia). Performed at [facility] Dr. Joy. Medical History Acute suppurative [...]
--- OUTSIDE RECORDS SUMMARY | 2018-06-10 05:30 | XMS REPORT ---
Author Author SIMA HODGES [facility] Address [address] [place] [address] Care Team Providers Care Cylinder Checker Name Role Phone SIMA HODGES Unavailable PROBLEMS Type Condition ICD9-CM Code YIY38-LO Code Onset Dates Condition Status SNOMED Code Problem Abnormal glucose R73.09 Active 328921821 Problem Anxiety F41.9 Active 88547220 Problem Neuroforaminal stenosis of spine M99.89 Active 200347726556 Problem Abnormal ultrasound of uterus R93.5 Active 979799714 Problem Abnormal MRI, shoulder R93.8 Active 443259466 Problem Chronic pain due to trauma G89.21 Active 816693557 Problem Essential hypertension I10 Active 44320244 Problem Neck pain M54.2 Active 64599624 Problem Hypokalemia E87.6 Active 23248204 Problem Mixed hyperlipidemia E78.2 Active 85252073 ALLERGIES No Information ENCOUNTERS Encounter Location Date Diagnosis [facility] [address] [address]- [address] Jul, [facility] [address] 9[address]- 6101 Jul, [facility] [address] 15249- 6911 Jun, High ankle sprain of right lower extremity, initial encounter S93.431A [facility] [id number] [place] [address] 22211- 0426 Jun, Essential hypertension I10 [facility] [address] [address]24- 7669 Jun, [facility] [address] 14879- 0692 Jun, [facility] [id number] [place] [address] 96242- 8357 Jun, Neuroforaminal stenosis of spine M99.89 [place] [address] 41151- 4980 Jun, Pain of right upper extremity M79.601 and Essential hypertension I10 [address] [address]- 3549 Jun, [place] [address] 53835- 2384 Jun, Dysuria R30.0 ; Acute cystitis with hematuria N30.01 and Screen for STD (sexually transmitted disease) Z11.[address] 17245- 4584 May, Chronic pain due to trauma G89.21 [place] [address] 21487- 4410 May, Essential hypertension I10 [place] [address] 85802- 5501 May, Neuroforaminal stenosis of spine M99.89 [facility] [id number] [place] [address] 81184- 1586 Apr, Allergic reaction, initial encounter T78.40XA [facility] [id number] [place] [address] 56669- 6440 Apr, Low back pain, unspecified back pain laterality, unspecified chronicity, with sciatica presence unspecified M54.5 ; Acute cystitis with hematuria N30.01 ; Neuroforaminal stenosis of spine M99.89 ; Bilateral acute serous otitis media, recurrence not specified H65.03 ; Mixed hyperlipidemia E78.2 ; Essential hypertension I10 ; Immunization counseling Z71.89 and Encounter for immunization Z23 [facility] [id number] [place] [address] 16068- 3829 08 Apr, 2017 Neck pain M54.2 [place] [id number] [place] [address] 24149- 9461 Mar, Neuroforaminal stenosis of spine M99.89 [facility] [id number] [place] [address] 76973- 8935 Mar, Pharyngitis due to other organism J02.8 [facility] [id number] [place] [address] 64427- 0156 Feb, Neuroforaminal stenosis of spine M99.89 [facility] [id number] [place] [address] 65156- 8814 Feb, UTI (urinary tract infection) N39.0 [facility] [id number] [place] [address] 62515- 1555 Feb, Recent urinary tract infection Z87.440 ; Neuroforaminal stenosis of spine M99.89 ; Neck pain M54.2 ; Chronic pain due to trauma G89.21 and Recurrent UTI N39.0 [facility] [id number] [place] [address] 31545- 0441 Feb, [facility] [id number] [place] [address] 33702- 2183 Jan, Neuroforaminal stenosis of spine M99.89 [facility] [id number] [place] [address] 37558- 1958 Dec, Neuroforaminal stenosis of spine M99.89 [facility] [id number] [place] [address] 44436- 1090 18 Dec, 2016 Acute seasonal allergic rhinitis due to pollen J30.1 [facility] [id number] [place] [address] 71787- 7600 08 Dec, 2016 [facility] [id number] [place] [address] 87942- 3724 08 Dec, 2016 Acute seasonal allergic rhinitis, unspecified trigger J30.2 ; Allergic conjunctivitis of both eyes H10.13 and Dysfunction of both eustachian tubes H69.83 [facility] [id number] [place] [address] 42211- 2982 07 Dec, 2016 [facility] [id number] [place] [address] 85259- 7426 Dec, Nevus D22.9 [facility] [id number] [place] [address] 75656- 5798 Nov, Chronic pain due to trauma G89.21 and Neuroforaminal stenosis of spine M99.89 [facility] [id number] [place] [address] 39625- 4767 Nov, Neuroforaminal stenosis of spine M99.89 ; Essential hypertension I10 ; Mixed hyperlipidemia E78.2 ; Hypokalemia E87.6 ; Neck pain M54.2 and Nevus D22.9 [facility] [id number] [place] [address] 01766- 8195 Oct, Neuroforaminal stenosis of spine M99.89 [facility] [id number] [place] [address] 38837- 5197 Sep, Neuroforaminal stenosis of spine M99.89 [facility] [id number] [place] [address] 10740- 7867 Sep, [facility] [id number] [place] [address] 53935- 7981 August, [facility] [id number] [place] [address] 73585- 5916 August, Neck pain M54.2 and Neuroforaminal stenosis of spine M99.89 [facility] [id number] [place] [address] 49737- 0920 August, Routine gynecological examination Z01.419 and Screening breast examination Z12.39 [facility] [id number] [place] [address] 60356- 0358 Jul, [facility] [address] [place] [address]- 7926 Jul, [facility] [id number] [address]- 6588 Jul, Neuroforaminal stenosis of spine M99.89 [facility] [id number] [address]- 9617 Jul, [facility] [id number] [place] [address] 69460- 7824 Jul, 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 [facility] [id number] [place] [address] 92634- 1153 Jul, [facility] [id number] [place] [address] 15180- 5708 Jul, [facility] [id number] [place] [address] 81864- 4750 Jun, Neuroforaminal stenosis of spine M99.89 [facility] [id number] [place] [address] 13554- 7339 Jun, Uterine leiomyoma, unspecified location D25.9 and Allergic reaction caused by a drug, initial encounter T78.40XA [facility] [address] [place] [address]- 8396 Jun, [facility] [id number] [place] [address] 55878- 0846 May, UTI symptoms R39.9 and Pain of right sacroiliac joint M53.3 [facility] [id number] [address]- 2791 May, Neuroforaminal stenosis of spine M99.89 [facility] [address] [place] [address]- 4921 May, [facility] [address] [place] [address]- 9436 May, Acute mucoid otitis media of left ear H65.112 and Acute non- recurrent maxillary sinusitis J01.00 [place] [id number] [place] [address] 72815- 6175 May, Acute bacterial conjunctivitis of both eyes H10.33 ; Left arm pain M79.602 and Hypokalemia E87.6 [place] [id number] [place] [address] 84553- 7539 Apr, [place] [id number] [place] [address] 77356- 5921 Apr, Neuroforaminal stenosis of spine M99.89 ; Neck pain M54.2 ; Chronic pain due to trauma G89.21 ; Mixed hyperlipidemia E78.2 ; Essential hypertension I10 and Hypokalemia E87.6 [place] [id number] [place] [address] 84122- 5551 Mar, Oral candidiasis B37.0 ; Neuroforaminal stenosis of spine M99.89 ; Neck pain M54.2 and Chronic pain due to trauma G89.21 [place] [id number] [place] [address] 83293- 0639 Feb, [place] [id number] [place] [address] 28619- 8857 Feb, [place] [id number] [place] [address] 30098- 3735 Feb, UTI (urinary tract infection) N39.0 [place] [id number] [place] [address] 11857- 2557 Feb, Dysuria R30.0 [place] [id number] [place] [address] 53457- 9390 Feb, Dysuria R30.0 [place] [id number] [place] [address] 04372- 2286 Feb, Neuroforaminal stenosis of spine M99.89 ; Neck pain M54.2 ; Essential hypertension I10 ; Chronic pain due to trauma G89.21 ; Dysuria R30.0 ; Abnormal MRI, shoulder R93.8 and Acute cystitis without hematuria N30.00 [facility] [id number] [place] [address] 15148- 6688 Jan, [facility] [id number] [place] [address] 14015- 0487 Jan, [facility] [id number] [place] [address] 55830- 1492 Jan, [facility] [id number] [place] [address] 34376- 3751 Jan, Abnormal MRI R93.8 [facility] [id number] [place] [address] 12993- 5690 29 Dec, 2015 [facility] [id number] [place] [address] 21532 -3777 15 Dec, 2015 Acute pain of left shoulder M25.512 [facility] [id number] [place] [address] 57533- 3106 09 Dec, 2015 [facility] [id number] [place] [address] 89144- 1356 08 Dec, 2015 [facility] [id number] [place] [address] 62465- 9214 07 Dec, 2015 Acute pain of left shoulder M25.512 [facility] [id number] [place] [address] 59991- 7242 Nov, [facility] [id number] [place] [address] 13060- 9503 Nov, Neuroforaminal stenosis of spine M99.89 ; Neck pain M54.2 ; Abnormal mammogram R92.8 ; Essential hypertension I10 and Chronic pain due to trauma G89.21 [facility] [id number] [place] [address] 23925- 3326 Nov, [facility] [id number] [address]- 3053 Oct, Acute stress disorder F43.0 [facility] [address], [place] [address]- 7730 Oct, [facility] [address] [place] [address]- 8062 Oct, [facility] [id number] [place] [address] 80652- 7068 Oct, [facility] [id number] [place] [address] 54891- 1274 Sep, [facility] [id number] [place] [address] 67329- 8745 August, [facility] [id number] [place] [address] 93851- 0224 Jul, Neuroforaminal stenosis of spine M99.89 ; Neck pain M54.2 ; Abnormal mammogram R92.8 and Essential hypertension I10 [facility] [address], [place] [address]- 5428 Jul, [facility] [id number] [place] [address] 29069- 6137 Jul, [facility] [address], [place] [address]- 5074 Jul, Abnormal mammogram R92.8 [facility] [id number] [place] [address] 81658- 7353 Jul, [facility] [id number], [place] [address]- 1376 Jul, UTI (urinary tract infection) N39.0 [facility] [address], [place] [address]- 8553 Jul, Dysuria R30.0 [facility] [address], [place] [address]- 0404 Jun, [facility] [address], [place] [address]- 8836 31 Jun, 2015 [place] [id number] [place] [address] 26032- 1615 Jun, Hypokalemia E87.6 and Hematuria R31.9 [place] [id number] [place] [address] 19528- 0509 Jun, Hypokalemia E87.6 [place] [id number] [place] [address] 86001- 6553 Jun, [place] [id number] [place] [address] 61975- 0192 Jun, Hypokalemia E87.6 [place] [id number] [place] [address] 08329- 2795 Jun, Hypokalemia E87.6 [place] [id number] [place] [address] 29531- 2150 Jun, Neuroforaminal stenosis of spine M99.89 ; Hypokalemia E87.6 ; Neck pain M54.2 ; Essential hypertension I10 ; Mixed hyperlipidemia E78.2 and Screening breast examination Z12.39 [place] [id number] [place] [address] 29445- 1388 08 Jun, 2015 Dysuria R30.0 ; UTI (urinary tract infection) N39.0 and Hematuria R31.9 [place] [id number] [place] [address] 11970- 1912 May, [place] [id number] [place] [address] 51502- 6183 May, High risk sexual behavior Z72.51 ; Hypokalemia E87.6 ; Neuroforaminal stenosis of spine M99.89 ; Neck pain M54.2 ; Essential hypertension I10 ; Mixed hyperlipidemia E78.2 ; STD exposure Z20.2 and Concern about STD in female without diagnosis Z71.1 [place] [id number] [place] [address] 58883- 1462 16 May, 2015 Neuroforaminal stenosis of spine M99.89 ; Neck pain M54.2 ; Hypokalemia E87.6 ; Essential hypertension I10 and Mixed hyperlipidemia E78.2 [place] [id number] [place] [address] 45426- 8396 11 May, 2015 [facility] [address] 53657 -4517 08 May, 2015 High risk sexual behavior Z72.51 ; STD exposure Z20.2 and Concern about STD in female without diagnosis Z71.1 [place] [address] 79463- 6610 May, [place] [id number] [place] [address] 09856- 6549 Apr, Neuroforaminal stenosis of spine M99.89 ; Mixed hyperlipidemia E78.2 ; Essential hypertension I10 and Hypokalemia E87.6 [place] [id number] [place] [address] 45143- 0145 Mar, [place] [id number] [place] [address] 36620- 7565 Mar, Hypokalemia E87.6 [place] [id number] [place] [address] 87255- 0552 Mar, Neuroforaminal stenosis of spine M99.89 ; Mixed hyperlipidemia E78.2 ; Neck pain M54.2 ; Essential hypertension I10 ; Abnormal fasting glucose R73.09 ; Hypokalemia E87.6 and Constipation K59.00 [place] [id number] [place] [address] 67187- 5871 Feb, Neuroforaminal stenosis of spine M99.89 ; Mixed hyperlipidemia E78.2 ; Neck pain M54.2 ; Essential hypertension I10 ; Abnormal fasting glucose R73.09 ; Hypokalemia E87.6 and Constipation K59.00 [place] [address], [place] [address]- 0811 Feb, Elevated fasting blood sugar R73.01 [place] [id number] [place] [address] 88115- 3659 Feb, Elevated fasting blood sugar R73.01 [place] [id number] [place] [address] 39356- 9871 Feb, Hair loss L65.9 [place] [id number] [place] [address] 15561- 3037 Feb, Sinusitis J32.9 ; Essential hypertension I10 and Hair loss L65.9 [place] [id number] [place] [address] 20576- 4917 Jan, [place] [id number] [place] [address] 74429- 2652 Jan, Essential hypertension I10 ; Neuroforaminal stenosis of spine M99.89 ; Neck pain M54.2 ; Mixed hyperlipidemia E78.2 and Anxiety F41.9 [place] [id number] [place] [address] 45689- 8097 Jan, [place] [id number] [place] [address] 04773- 5682 Jan, Mixed hyperlipidemia E78.2 ; Essential (primary) hypertension I10 ; Strain of muscle, fascia and tendon at neck level, subsequent encounter S16.1XXD and Tension-type headache, unspecified, not intractable G44.209 [place] [id number] [place] [address] 58156- 1824 Dec, Lumbar back pain 724.2 and Neuroforaminal stenosis of spine 724.00 [place] [id number] [place] [address] 59342- 0970 Nov, [place] [id number] [place] [address] 98496- 7588 Nov, Lumbar back pain 724.2 and Neuroforaminal stenosis of spine 724.00 [facility] [address], [place] [address]- 6970 Nov, Edema 782.3 ; Lumbar back pain 724.2 ; Essential hypertension, benign 401.1 ; Hyperlipemia 272.4 ; Neuroforaminal stenosis of spine 724.00 and Post-concussion headache 339.20 [facility] [id number] [place] [address] 88541- 4330 Nov, [facility] [id number] [place] [address] 74191- 5425 Nov, [facility] [id number] [place] [address] 25935- 0738 Oct, Essential hypertension, benign 401.1 [facility] [id number] [place] [address] 11335- 6145 Oct, Edema 782.3 ; Lumbar back pain 724.2 ; Essential hypertension, benign 401.1 ; Hyperlipemia 272.4 ; Neuroforaminal stenosis of spine 724.00 and Post-concussion headache 339.20 [place] [id number] [place] [address] 75570- 0036 Oct, [facility] [id number] [place] [address] 77701- 0904 Oct, Edema 782.3 [facility] [id number] [place] [address] 40481- 9663 Oct, Lumbar back pain 724.2 [place] [id number] [place] [address] 51047- 0056 Oct, Cervicalgia 723.1 ; Lumbar back pain 724.2 and High risk medication use V58.69 [facility] [id number] [place] [address] 66229- 2317 Sep, [facility] [id number] [place] [address] 17897- 6037 Sep, Lumbar strain 847.2 [facility] [address], [place] [address]- 6159 August, Edema 782.3 and Eustachian tube dysfunction 381.81 [facility] [address], [place] [address]- 4226 August, [facility] [id number] [place] [address] 72966- 6036 August, Eustachian tube dysfunction 381.81 [facility] [address], [place] [address]- 1386 Jul, Otalgia 388.70 and Otitis media 382.9 [facility] [address], [place] [address]- 2240 Jul, [facility] [address], [place] [address]- 9653 Jul, [facility] [address], [place] [address]- [address] Jul, [facility] [id number] [address] Jul, [facility] [id number] [address] Jul, [facility] [id number] [address] Jun, [facility] [id number], [place] [address] Jun, [facility] [id number], [place] [address] Jun, [facility] [id number] [place] [address] May, [facility] [id number] [address] May, [facility] [place] [facility] [address] [facility] [id number] [place] [address] May, 2014 [facility] [place] [facility] [address] [id number] [place] [address] May, 2014 [facility] [place] [facility] [address] [id number] [place] [address] May, 2014 [facility] [place] [facility] [address] [id number] [place] [address] May, 2014 [facility] [place] [facility] [address] [id number] [place] [address] May, 2014 [facility] [place] [facility] [address] [id number] [place] [address] May, 2014 [facility] [place] [facility] [address] [id number] [place] [address] May, 2014 [facility] [place] [facility] [address] [id number] [place] [address] May, [facility] [place] [facility] [address] [id number] [place] [address] Apr, [facility] [place] [facility] [address] [id number] [place] [address] Apr, [facility] [place] [facility] [address] [id number] [place] [address]- [address] Apr, [facility] [place] [facility] [address] [id number] [place] [address] Apr, [facility] [place] [facility] [address] [id number] [place] [address] Apr, [facility] [place] [facility] [address] [id number] [place] [address] Apr, [facility] [place] [facility] [address] [id number] [place] [address] Apr, [facility] [place] [facility] [address] [id number] [place] [address] Apr, [facility] [place] [facility] [address] [id number] [place] [address] Apr, [facility] [place] [facility] [address] [id number] [place] [address] Apr, [facility] [place] [facility] [address] [id number] [place] [address] Apr, [facility] [place] [facility] [address] [id number] [place] [address] Apr, [facility] [place] [facility] [address] [id number] [place] [address] Apr, [facility] [place] [facility] [address] [id number] [place] [address] Apr, [facility] [place] [facility] [address] [id number] [place] [address] Apr, [facility] [place] [facility] [address] [id number] [place] [address] Mar, [facility] [place] [facility] [address] [id number] [place] [address] Mar, [facility] [place] [facility] [address] [id number] [place] [address] Mar, [facility] [place] [facility] [address] [id number] [place] [address] Mar, [facility] [place] [facility] [address] [id number] [place] [address] Feb, [facility] [place] [facility] [address] [id number] [place] [address] Feb, [facility] [place] [facility] [address] [id number] [place] [address] Feb, [facility] [place] [facility] [address] [id number] [place] [address] 7967 Feb, [facility] [place] [facility] [address] [id number] [place] [address] 07 Jan, 2013 [facility] [place] [facility] [address] [id number] [place] [address] 68[address] Jan, 2013 [facility] [place] [facility] [address] [id number] [place] [address]229 Jan, 2013 [facility] [place] [facility] [address] [id number] [place] [address] 1286 Jan, 2013 [facility] [place] [facility] [address] [id number] [place] [address] 2071 Jan, [facility] [place] [facility] [address] [id number] [place] [address] 0091 Jan, [facility] [place] [facility] [address] [id number] [place] [address] 9904 Jan, [facility] [place] [facility] [address] [id number] [place] [address] 5764 Jan, [facility] [place] [facility] [address] [id number] [place] [address] 450[address] Dec, [facility] [place] [facility] [address] [id number] [place] [address] 5907 Dec, [facility] [place] [facility] [address] [id number] [place] [address] 2857 Dec, [facility] [place] [facility] [address] [id number] [place] [address] 4040 Dec, 2013 [facility] [place] [facility] [address] [id number] [place] [address] 1615 Oct, [facility] [place] [facility] [address] [id number] [place] [address]- 5304 Oct, [facility] [place] [facility] [address] [id number] [place] [address] 1985 Oct, [facility] [place] [facility] [address] [id number] [place] [address]- 5883 Oct, [facility] [place] [facility] [address] [id number] [place] [address]- 5166 Oct, [facility] [place] [facility] [address] [id number] [place] [address]- 8641 Oct, [facility] [place] [facility] [address] [id number] [place] [address]- 3684 Oct, [facility] [place] [facility] [address] [id number] [place] [address]- 6919 Oct, [facility] [place] [facility] [address] [id number] [place] [address]- 3792 Sep, [facility] [place] [facility] [address] [id number] [place] [address]- 1218 Sep, [facility] [place] [facility] [address] [id number] [place] [address]- 0182 Sep, [facility] [place] [facility] [address] [id number] [place] [address]- 6238 Sep, [facility] [place] [facility] [address] [id number] [place] [address]- 7255 Sep, [facility] [place] [facility] [address] [id number] [place] [address]- 9368 Sep, [facility] [place] [facility] [address] [id number] [place] [address]- 5991 Sep, [facility] [place] [facility] [address] [id number] [place] [address]- 3531 Sep, [facility] [place] [facility] [address] [id number] [place] [address]- 4754 Sep, [facility] [place] [facility] [address] [id number] [place] [address]- 0363 Sep, [facility] [place] [facility] [address] [id number] [place] [address]- 5050 August, [facility] [place] [facility] [address] [id number] [place] [address]- 0494 August, [facility] [place] [facility] [address] [id number] [place] [address]- 4902 August, [facility] [place] [facility] [address] [id number] [place] [address]- 8183 August, [facility] [place] [facility] [address] [id number] [place] [address] 9493 August, [facility] [place] [facility] [address] [id number] [place] [address]- 5829 August, [facility] [place] [facility] [address] [id number] [place] [address]- 7884 August, [facility] [place] [facility] [address] [id number] [place] [address]- 7136 August, [facility] [place] [facility] [address] [id number] [place] [address]- 5402 August, [facility] [place] [facility] [address] [id number] [place] [address]- 8290 August, [facility] [place] [facility] [address] [id number] [place] [address]- 9290 August, [facility] [place] [facility] [address] [id number] [place] [address]- 5537 August, [facility] [place] [facility] [address] [id number] [place] [address]- 1060 Jul, [facility] [place] [facility] [address] [id number] [place] [address]- 6646 Jul, [facility] [place] [facility] [address] [id number] [place] [address]- 2580 Jul, [facility] [place] [facility] [address] [id number] [place] [address]- 9767 Jul, [facility] [place] [facility] [address] [id number] [place] [address]- 6516 Jul, [facility] [place] [facility] [address] [id number] [place] [address]- 1232 Jul, [facility] [place] [facility] [address] [id number] [place] [address]- 8245 Jun, [facility] [place] [facility] [address] [id number] [place] [address]- 7421 Jun, [facility] [place] [facility] [address] [id number] [place] [address]- 2314 May, [facility] [place] [facility] [address] [id number] [place] [address]- 4782 May, [facility] [place] [facility] [address] [id number] [place] [address]- 3367 Apr, [facility] [place] [facility] [address] [id number] [place] [address]- 1229 Apr, [facility] [place] [facility] [address] [id number] [place] [address]- 2459 Apr, [facility] [place] [facility] [address] [id number] [place] [address]- 7339 Apr, [facility] [place] [facility] [address] [id number] [place] [address]- 8485 Apr, [facility] [place] [facility] [address] [id number] [place] [address]- 5381 Apr, [facility] [place] [facility] [address] [id number] [place] [address]- 2054 Apr, [facility] [place] [facility] [address] [id number] [place] [address]- 4346 Apr, [facility] [place] [facility] [address] [id number] [place] [address]- 0975 Apr, [facility] [place] [facility] [address] [id number] [place] [address]- 0258 Apr, [facility] [place] [facility] [address] [id number] [place] [address]- 7630 Apr, [facility] [place] [facility] [address] [id number] [place] [address]- 9209 Apr, [facility] [place] [facility] [address] [id number] [place] [address] Apr, [facility] [place] [facility] [address] [id number] [place] [address]- 8968 Mar, [facility] [place] [facility] [address] [id number] [place] [address]- 2571 Mar, [facility] [place] [facility] [address] [id number] [place] [address]- 2503 Mar, [facility] [place] [facility] [address] [id number] [place] [address]- 4530 Mar, [facility] [place] [facility] [address] [id number] [place] [address]- 1325 Feb, [facility] [place] [facility] [address] [id number] [place] [address]- 2390 Feb, [facility] [place] [facility] [address] [id number] [place] [address]- 0443 Feb, [facility] [place] [facility] [address] [id number] [place] [address]- 5939 Feb, [facility] [place] [facility] [address] [id number], [place] [address] 8697 14 Jan, 2013 [facility] [place] [facility] [address] [id number], [place] [address]- 7920 14 Jan, 2013 [facility] [place] [facility] [address] [id number] [place] [address]- 7345 11 Jan, 2013 [facility] [place] [facility] [address] [id number] [place] [address]- 5192 11 Jan, 2013 [facility] [place] [facility] [address] [id number] [place] [address]- 3720 10 Jan, 2013 [facility] [place] [facility] [address] [id number] [place] [address]- 4792 Jan, [facility] [address] [id number] [place] [address]- 4578 Jan, [facility] [place] [facility] [address] [id number] [place] [address]- 7030 Jan, [facility] [address] [id number] [place] [address]- 6696 Jan, [facility] [address] [id number] [place] [address]- 3646 26 Dec, 2012 [facility] [address] [id number] [place] [address]- 5144 16 Dec, 2012 [facility] [address] [id number] [place] [address]- 0978 16 Dec, 2012 [facility] [address] [id number] [place] [address]- 5096 Dec, [facility] [address] [id number] [place] [address]- 4481 Nov, [facility] [address] [id number] [place] [address]- 6703 Nov, [facility] [address] [id number] [place] [address]- 8921 Nov, [facility] [place] [facility] [address] [id number] [place] [address]- 1378 Nov, [facility] [address] [id number] [place] [address]- 6538 Oct, [facility] [place] [facility] [address] [id number] [place] [address]- 1597 Sep, [facility] [place] [facility] [address] [id number] [place] [address]- 7828 August, [facility] [place] [facility] [address] [id number] [place] [address] August, [facility] [address] [id number] [place] [address]- 4717 August, [facility] [address] [id number] [place] [address]- 4461 August, [facility] [address] [id number] [place] [address]- 6230 August, [facility] [address] [id number] [place] [address]- 8182 August, [facility] [address] [id number] [place] [address]- 0467 August, [facility] [address] [id number] [place] [address]- 5028 August, [facility] [address] [id number] [place] [address]- 9078 August, [facility] [address] [id number] [place] [address]- 0300 August, [facility] [address] [id number] [place] [address]- 3737 August, [facility] [address] [id number] [place] [address]- 2378 August, [facility] [address] [id number] [place] [address]- 1807 Jul, [facility] [place] [facility] [address] [id number] [place] [address]- 8420 Jul, [facility] [place] [facility] [address] [id number] [place] [address]- 0731 Jul, [facility] [place] [facility] [address] [id number] [place] [address]- 6891 Jul, [facility] [place] [facility] [address] [id number] [place] [address]- 5415 Jul, [facility] [place] [facility] [address] [id number], [place] [address]- 2547 Jul, [facility] [address] [id number] [place] [address]- 1454 Jul, [facility] [place] [facility] [address] [id number] [place] [address]- 0161 Jul, [facility] [address] [facility] [id number] [place] [address]- 9965 Jul, [facility] [place] [facility] [address] [id number] [place] [address]- 1615 Jul, [facility] [address] [id number] [place] [address]- 9005 Jul, [facility] [address] [facility] [id number] [place] [address]- 6438 Jun, [facility] [id number] [place] [address]- 1301 Jun, [facility] [address] [facility] [id number] [place] [address]- 5384 Jun, [facility] [address] [id number] [place] [place] [address]- 3879 Jun, [facility] [address] [id number] [place] [place] [address]- 4064 May, [facility] [id number] [place] [place] [address]- 4329 14 May, 2012 [facility] [place] [facility] [address] [facility] [id number], [place] [address]- 8848 05 May, 2012 [facility] [place] [facility] [address] [id number] [place] [address]- 8501 04 May, 2012 [facility] [place] [facility] [address] [facility] [id number], [place] [address]- 4926 04 May, 2012 [facility] [place] [facility] [address] [id number], [place] [address]- 3944 May, [facility] [place] [facility] [address] [id number] [place] [address]- 1752 Apr, [facility] [place] [facility] [address] [id number] [place] [address]- 2575 Apr, [facility] [place] [facility] [address] [id number] [place] [address]- 7111 Apr, [facility] [place] [facility] [address] [id number] [place] [address]- 3450 Apr, [facility] [address] [id number] [place] [address]- 7026 15 Mar, 2012 [facility] [place] [facility] [address] [id number] [place] [address]- 0339 Mar, [facility] [address] [id number] [place] [address]- 8927 Mar, [facility] [address] [id number] [place] [address]- 3785 Mar, [facility] [place] [facility] [address] [id number] [place] [address]- 9908 Mar, [facility] [place] [facility] [address] [id number] [place] [address]- 1337 Mar, [facility] [place] [facility] [address] [id number] [place] [address]- 7502 Mar, [facility] [place] [facility] [address] [id number] [place] [address]- 6393 Feb, [facility] [place] [facility] [address] [id number] [place] [address]- 8449 Feb, [facility] [place] [facility] [address] [id number] [place] [address]- 2506 Feb, [facility] [place] [facility] [address] [id number] [place] [address] Feb, [facility] [place] [facility] [address] [id number] [place] [address]- 8318 Jan, [facility] [place] [facility] [address] [id number] [place] [address]- 4118 Jan, [facility] [place] [facility] [address] [id number] [place]874 Jan, [facility] [place] [facility] [address] [id number] [place] [address]- 2173 Jan, [facility] [place] [facility] [address] [id number] [place] [address]- 9798 Jan, [facility] [place] [facility] [address] [id number] [place] [address]- 0470 Jan, [facility] [place] [facility] [address] [id number] [place] [address]- 1150 Dec, [facility] [place] [facility] [address] [id number] [place] [address]- 1057 Dec, [facility] [place] [facility] [address] [id number] [place] [address]- 8847 Nov, [facility] [place] [facility] [address] [id number] [place] [address]- 4280 Sep, [facility] [place] [facility] [address] [id number] [place] [address]- 9150 August, [facility] [place] [facility] [address] [id number] [place] [address]- 9386 August, [facility] [place] [facility] [address] [id number] [place] [address]- 6378 August, [facility] [place] [facility] [address] [id number] [place] [address]- 5796 August, [facility] [place] [facility] [address] [id number] [place] [address]- 3333 August, [facility] [place] [facility] [address] [id number] [place] [address]- 3000 Jun, [facility] [place] [facility] [address] [id number] [place] [address]- 5796 Jun, [facility] [place] [facility] [address] [id number] [place] [address]- 6779 Apr, [facility] [place] [facility] [address] [id number] [place] [address]- 5006 Apr, [facility] [place] [facility] [address] [id number] [place] [address]- 4273 Mar, [facility] [place] [facility] [address] [id number] [place] [address]- 2045 Feb, [facility] [place] [facility] [address] [id number] [place] [address]- 0061 Feb, [facility] [place] [facility] [address] [id number] [place] [address]- 9028 Feb, [facility] [place] [facility] [address] [id number] [place] [address]- 6596 17 Jan, 2011 [facility] [place] [facility] [address] [id number] [place] [address]- 5380 Jan, [facility] [place] [facility] [address] [id number] [place] [address]- 0578 Jan, [facility] [place] [facility] [address] [id number] [place] [address]- 5404 14 Jan, 2011 [facility] [place] [facility] [address] [id number] [place] [address]- 6468 15 May, 2010 [facility] [place] [facility] [address] [id number] [place] [address]- 6399 Mar, [facility] [place] [facility] [address] [id number] [place] [address]- 7476 Oct, [facility] [place] [facility] [address] [id number] [place] [address]- 2546 Sep, [facility] [place] [facility] [address] [id number] [place] [address]- 7476 Mar, [facility] [address] [facility] [id number], [place] [address]- 2546 Jan, [facility] [address] [facility] [id number], [place] [address]- 2546 Jan, [facility] [address] [facility] [id number], [place] [address]- 2546 May, IMMUNIZATIONS No Known Immunizations SOCIAL [...] (no definite dyplasia). Performed at [facility] Dr. Joy. Medical History Acute suppurative otitis [...]
--- OUTSIDE RECORDS SUMMARY | 2018-06-10 05:30 | XMS REPORT ---
Author Author SIMA HODGES [facility] Address [address] [place] [address] Care Team Providers Care Wireline Operator Name Role Phone SIMA HODGES Unavailable PROBLEMS Type Condition ICD9-CM Code KTY46-OZ Code Onset Dates Condition Status SNOMED Code Problem Anxiety F41.9 Active 22277818 Problem Abnormal glucose R73.09 Active 404356923 Problem Chronic pain due to trauma G89.21 Active 180849600 Problem Hypokalemia E87.6 Active 51163085 Problem Neck pain M54.2 Active 94769104 Problem Neuroforaminal stenosis of spine M99.89 Active 631931250990 Problem Mixed hyperlipidemia E78.2 Active 00884910 Problem Essential hypertension I10 Active 66251959 ALLERGIES Substance Reaction Event Type Date Status Macrobid rash Drug Allergy Apr, Active Cipro hives Drug Allergy Apr, Active Baclofen Unknown Drug Allergy Apr, Active Amitriptyline HCl dizziness Drug Allergy Apr, Active Peanut Unknown Non Drug Allergy Apr, Active ENCOUNTERS Encounter Location Date Diagnosis [place] [id number] [place] [address] 37252- 1468 Oct, [facility] [id number] [place] [address] 03991- 8301 Sep, Essential hypertension I10 and Neuroforaminal stenosis of spine M99.89 [facility] [id number] [place] [address] 30367- 4330 Sep, Abnormal glucose R73.09 [place] [id number] [place] [address] 86641- 6002 August, Lateral epicondylitis, right elbow M77.11 [facility] [id number] [place] [address] 48415- 6619 August, Screen for STD (sexually transmitted disease) Z11.3 [place] [id number] [place] [address] 27272- 9334 August, Neuroforaminal stenosis of spine M99.89 ; Mixed hyperlipidemia E78.2 ; Elevated fasting glucose R73.01 ; Screening mammogram, encounter for Z12.31 and Encounter for well woman exam without gynecological exam Z00.00 [place] [address] 98863- 6399 August, Neuroforaminal stenosis of spine M99.89 [place] [address] 71667- 9974 August, Essential hypertension I10 ; Hypokalemia E87.6 and Mixed hyperlipidemia E78.2 [place] [address] 19033- 0874 Jul, [place] [address] 11241- 8484 Jul, Neuroforaminal stenosis of spine M99.89 [place] [address] 00431- 2691 Jul, Lateral epicondylitis, right elbow M77.11 [place] [address] 56374- 7200 Jul, [place] [address] 89908- 2608 Jun, High ankle sprain of right lower extremity, initial encounter S93.431A [place] [address] 86787- 3094 Jun, Essential hypertension I10 [place] [address] 95630- 2939 Jun, [place] [address] 30508- 0728 Jun, [place] [address] [place] [address] [id number] [place] [address] 40391- 0106 Jun, Neuroforaminal stenosis of spine M99.89 [place] [address] 45731- 6078 Jun, Pain of right upper extremity M79.601 and Essential hypertension I10 [address] [address]15- 1975 Jun, [place] [address] 76926- 9190 Jun, Dysuria R30.0 ; Acute cystitis with hematuria N30.01 and Screen for STD (sexually transmitted disease) Z11.[address] 56644- 6853 May, Chronic pain due to trauma G89.21 [place] [address] 05328- 2935 May, Essential hypertension I10 [place] [address] 33027- 1286 May, Neuroforaminal stenosis of spine M99.89 [place] [address] [place] [address] [id number] [place] [address] 35017- 3577 Apr, Allergic reaction, initial encounter T78.40XA [place] [address] [id number] [place] [address] 70990- 0500 Apr, Low back pain, unspecified back pain laterality, unspecified chronicity, with sciatica presence unspecified M54.5 ; Acute cystitis with hematuria N30.01 ; Neuroforaminal stenosis of spine M99.89 ; Bilateral acute serous otitis media, recurrence not specified H65.03 ; Mixed hyperlipidemia E78.2 ; Essential hypertension I10 ; Immunization counseling Z71.89 and Encounter for immunization Z23 [place] [id number] [place] [address] 66321- 4729 08 Apr, 2017 Neck pain M54.2 [place] [id number] [place] [address] 28449- 5899 Mar, Neuroforaminal stenosis of spine M99.89 [facility] [id number] [place] [address] 71785- 9441 Mar, Pharyngitis due to other organism J02.8 [facility] [address] [id number] [place] [address] 44845- 3555 Feb, Neuroforaminal stenosis of spine M99.89 [facility] [id number] [place] [address] 65325- 5752 Feb, UTI (urinary tract infection) N39.0 [facility] [id number] [place] [address] 05742- 9355 Feb, Recent urinary tract infection Z87.440 ; Neuroforaminal stenosis of spine M99.89 ; Neck pain M54.2 ; Chronic pain due to trauma G89.21 and Recurrent UTI N39.0 [facility] [id number] [place] [address] 72278- 6603 Feb, [facility] [id number] [place] [address] 54367- 6571 Jan, Neuroforaminal stenosis of spine M99.89 [facility] [address] [place] [address] 68782- 8884 Dec, Neuroforaminal stenosis of spine M99.89 [facility] [address] [place] [address] 52018- 6082 18 Dec, 2016 Acute seasonal allergic rhinitis due to pollen J30.1 [facility] [id number] [place] [address] 67126- 4000 08 Dec, 2016 [facility] [address] [place] [address] 03839- 9704 08 Dec, 2016 Acute seasonal allergic rhinitis, unspecified trigger J30.2 ; Allergic conjunctivitis of both eyes H10.13 and Dysfunction of both eustachian tubes H69.83 [facility] [id number] [place] [address] 82165- 5988 07 Dec, 2016 [facility] [id number] [place] [address] 97179- 0496 Dec, Nevus D22.9 [facility] [id number] [place] [address] 99433- 8886 Nov, Chronic pain due to trauma G89.21 and Neuroforaminal stenosis of spine M99.89 [facility] [id number] [place] [address] 54333- 0996 Nov, Neuroforaminal stenosis of spine M99.89 ; Essential hypertension I10 ; Mixed hyperlipidemia E78.2 ; Hypokalemia E87.6 ; Neck pain M54.2 and Nevus D22.9 [facility] [id number] [place] [address] 32229- 8334 Oct, Neuroforaminal stenosis of spine M99.89 [facility] [id number] [place] [address] 90577- 1092 Sep, Neuroforaminal stenosis of spine M99.89 [facility] [id number] [place] [address] 35412- 8500 Sep, [facility] [id number] [place] [address] 89774- 7902 August, [facility] [id number] [place] [address] 34587- 5003 August, Neck pain M54.2 and Neuroforaminal stenosis of spine M99.89 [facility] [id number] [place] [address] 79381- 9814 August, Routine gynecological examination Z01.419 and Screening breast examination Z12.39 [facility] [id number] [place] [address] 78095- 5227 Jul, [facility] [address] [place] [address]- 2010 Jul, [facility] [address] [place] [id number] [address]- 9033 Jul, Neuroforaminal stenosis of spine M99.89 [facility] [address] [place] [id number] [address]- 7813 Jul, [facility] [id number] [place] [address] 13125- 8651 Jul, 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 [facility] [address] [place] [address] [id number] [place] [address] 20762- 8750 Jul, [facility] [id number] [place] [address] 88547- 1556 Jul, [facility] [id number] [place] [address] 05808- 0070 Jun, Neuroforaminal stenosis of spine M99.89 [facility] [id number] [place] [address] 10505- 4001 Jun, Uterine leiomyoma, unspecified location D25.9 and Allergic reaction caused by a drug, initial encounter T78.40XA [facility] [address] [address]- 6627 Jun, [facility] [address] [place] [address] 87879- 5313 May, UTI symptoms R39.9 and Pain of right sacroiliac joint M53.3 [facility] [address] [place] [address] [id number] [address]- 1360 May, Neuroforaminal stenosis of spine M99.89 [facility] [address] [address]- 2262 May, [facility] [address] [address]- 0969 May, Acute mucoid otitis media of left ear H65.112 and Acute non- recurrent maxillary sinusitis J01.00 [place] [id number] [place] [address] 55232- 9917 May, Acute bacterial conjunctivitis of both eyes H10.33 ; Left arm pain M79.602 and Hypokalemia E87.6 [place] [address] [id number] [place] [address] 53206- 8180 Apr, [place] [id number] [place] [address] 62664- 4181 Apr, Neuroforaminal stenosis of spine M99.89 ; Neck pain M54.2 ; Chronic pain due to trauma G89.21 ; Mixed hyperlipidemia E78.2 ; Essential hypertension I10 and Hypokalemia E87.6 [place] [id number] [place] [address] 62120- 9291 Mar, Oral candidiasis B37.0 ; Neuroforaminal stenosis of spine M99.89 ; Neck pain M54.2 and Chronic pain due to trauma G89.21 [place] [id number] [place] [address] 20283- 6702 Feb, [place] [address] [id number] [place] [address] 44680- 3380 Feb, [place] [id number] [place] [address] 52601- 2658 Feb, UTI (urinary tract infection) N39.0 [place] [address] [id number] [place] [address] 08046- 5244 Feb, Dysuria R30.0 [place] [id number] [place] [address] 47155- 7094 Feb, Dysuria R30.0 [place] [id number] [place] [address] 46982- 2648 Feb, Neuroforaminal stenosis of spine M99.89 ; Neck pain M54.2 ; Essential hypertension I10 ; Chronic pain due to trauma G89.21 ; Dysuria R30.0 ; Abnormal MRI, shoulder R93.8 and Acute cystitis without hematuria N30.00 [facility] [id number] [place] [address] 36824- 9503 Jan, [facility] [id number] [place] [address] 77190- 1081 Jan, [facility] [id number] [place] [address] 90263- 0650 Jan, [facility] [id number] [place] [address] 97184- 5886 Jan, Abnormal MRI R93.8 [facility] [id number] [place] [address] 54605- 5815 29 Dec, 2015 [facility] [id number] [place] [address] 57494 -5151 15 Dec, 2015 Acute pain of left shoulder M25.512 [facility] [id number] [place] [address] 39683- 2249 09 Dec, 2015 [facility] [id number] [place] [address] 03140- 9514 08 Dec, 2015 [facility] [id number] [place] [address] 93588- 4602 07 Dec, 2015 Acute pain of left shoulder M25.512 [facility] [id number] [place] [address] 52179- 2625 Nov, [facility] [id number] [place] [address] 08981- 2412 Nov, Neuroforaminal stenosis of spine M99.89 ; Neck pain M54.2 ; Abnormal mammogram R92.8 ; Essential hypertension I10 and Chronic pain due to trauma G89.21 [facility] [id number] [place] [address] 18271- 5897 Nov, [facility] [id number] [address]- 4483 Oct, Acute stress disorder F43.0 [facility] [address], [place] [address]- 5782 Oct, [facility] [address], [place] [address]- 5940 Oct, [facility] [id number] [place] [address] 76872- 0131 Oct, [facility] [id number] [place] [address] 72799- 3843 Sep, [facility] [id number] [place] [address] 84824- 5395 August, [facility] [address] [place] [address] 75645- 0146 Jul, Neuroforaminal stenosis of spine M99.89 ; Neck pain M54.2 ; Abnormal mammogram R92.8 and Essential hypertension I10 [facility] [address], [place] [address]- 7538 Jul, [facility] [id number] [place] [address] 43501- 1980 Jul, [facility] [address], [place] [address]- 1674 Jul, Abnormal mammogram R92.8 [facility] [id number] [place] [address] 82022- 8815 Jul, [facility] [address] [place] [id number] [address]- 6004 Jul, UTI (urinary tract infection) N39.0 [facility] [address] [place] [address]- 3774 Jul, Dysuria R30.0 [facility] [address], [place] [address]- 7872 Jun, [facility] [address], [place] [address]- 6398 31 Jun, 2015 [place] [id number] [place] [address] 09192- 3491 Jun, Hypokalemia E87.6 and Hematuria R31.9 [place] [id number] [place] [address] 28836- 1102 Jun, Hypokalemia E87.6 [place] [id number] [place] [address] 67044- 6530 Jun, [place] [id number] [place] [address] 19874- 5801 Jun, Hypokalemia E87.6 [place] [id number] [place] [address] 59807- 9655 Jun, Hypokalemia E87.6 [place] [id number] [place] [address] 15284- 8593 Jun, Neuroforaminal stenosis of spine M99.89 ; Hypokalemia E87.6 ; Neck pain M54.2 ; Essential hypertension I10 ; Mixed hyperlipidemia E78.2 and Screening breast examination Z12.39 [place] [id number] [place] [address] 58853- 8843 08 Jun, 2015 Dysuria R30.0 ; UTI (urinary tract infection) N39.0 and Hematuria R31.9 [place] [id number] [place] [address] 73915- 4327 May, [place] [id number] [place] [address] 05131- 6616 May, High risk sexual behavior Z72.51 ; Hypokalemia E87.6 ; Neuroforaminal stenosis of spine M99.89 ; Neck pain M54.2 ; Essential hypertension I10 ; Mixed hyperlipidemia E78.2 ; STD exposure Z20.2 and Concern about STD in female without diagnosis Z71.1 [place] [id number] [place] [address] 47088- 9036 16 May, 2015 Neuroforaminal stenosis of spine M99.89 ; Neck pain M54.2 ; Hypokalemia E87.6 ; Essential hypertension I10 and Mixed hyperlipidemia E78.2 [place] [id number] [place] [address] 54569- 2297 11 May, 2015 [facility] [address] 69681 -2970 08 May, 2015 High risk sexual behavior Z72.51 ; STD exposure Z20.2 and Concern about STD in female without diagnosis Z71.1 [place] [address] 19504- 0729 May, [place] [id number] [place] [address] 14698- 4070 Apr, Neuroforaminal stenosis of spine M99.89 ; Mixed hyperlipidemia E78.2 ; Essential hypertension I10 and Hypokalemia E87.6 [place] [id number] [place] [address] 49974- 2259 Mar, [place] [id number] [place] [address] 53707- 0183 Mar, Hypokalemia E87.6 [place] [id number] [place] [address] 20483- 0262 Mar, Neuroforaminal stenosis of spine M99.89 ; Mixed hyperlipidemia E78.2 ; Neck pain M54.2 ; Essential hypertension I10 ; Abnormal fasting glucose R73.09 ; Hypokalemia E87.6 and Constipation K59.00 [place] [id number] [place] [address] 30261- 9135 Feb, Neuroforaminal stenosis of spine M99.89 ; Mixed hyperlipidemia E78.2 ; Neck pain M54.2 ; Essential hypertension I10 ; Abnormal fasting glucose R73.09 ; Hypokalemia E87.6 and Constipation K59.00 [place] [address], [place] [address]- 5274 Feb, Elevated fasting blood sugar R73.01 [place] [id number] [place] [address] 34796- 4744 Feb, Elevated fasting blood sugar R73.01 [place] [id number] [place] [address] 36021- 1209 Feb, Hair loss L65.9 [place] [id number] [place] [address] 91299- 9787 Feb, Sinusitis J32.9 ; Essential hypertension I10 and Hair loss L65.9 [place] [id number] [place] [address] 23396- 2219 Jan, [place] [id number] [place] [address] 59187- 8712 Jan, Essential hypertension I10 ; Neuroforaminal stenosis of spine M99.89 ; Neck pain M54.2 ; Mixed hyperlipidemia E78.2 and Anxiety F41.9 [place] [id number] [place] [address] 07577- 2244 Jan, [place] [id number] [place] [address] 42451- 6452 Jan, Mixed hyperlipidemia E78.2 ; Essential (primary) hypertension I10 ; Strain of muscle, fascia and tendon at neck level, subsequent encounter S16.1XXD and Tension-type headache, unspecified, not intractable G44.209 [place] [address] [place] [address] 84498- 8023 Dec, Lumbar back pain 724.2 and Neuroforaminal stenosis of spine 724.00 [place] [id number] [place] [address] 67755- 6525 Nov, [place] [id number] [place] [address] 30404- 6831 Nov, Lumbar back pain 724.2 and Neuroforaminal stenosis of spine 724.00 [facility] [address], [place] [address]- 5404 Nov, Edema 782.3 ; Lumbar back pain 724.2 ; Essential hypertension, benign 401.1 ; Hyperlipemia 272.4 ; Neuroforaminal stenosis of spine 724.00 and Post-concussion headache 339.20 [facility] [id number] [place] [address] 12596- 8435 Nov, [facility] [id number] [place] [address] 07634- 6813 Nov, [facility] [id number] [place] [address] 19175- 3344 Oct, Essential hypertension, benign 401.1 [facility] [id number] [place] [address] 98729- 0154 Oct, Edema 782.3 ; Lumbar back pain 724.2 ; Essential hypertension, benign 401.1 ; Hyperlipemia 272.4 ; Neuroforaminal stenosis of spine 724.00 and Post-concussion headache 339.20 [place] [id number] [place] [address] 44938- 8921 Oct, [facility] [id number] [place] [address] 23924- 6499 Oct, Edema 782.3 [facility] [id number] [place] [address] 66233- 0895 Oct, Lumbar back pain 724.2 [place] [address] [place] [address] 87564- 3064 Oct, Cervicalgia 723.1 ; Lumbar back pain 724.2 and High risk medication use V58.69 [facility] [id number] [place] [address] 33524- 3588 Sep, [facility] [id number] [place] [address] 40000- 7349 Sep, Lumbar strain 847.2 [facility] [address], [place] [address]- 2090 August, Edema 782.3 and Eustachian tube dysfunction 381.81 [facility] [address], [place] [address]- 2086 August, [facility] [id number] [place] [address] 31149- 4956 August, Eustachian tube dysfunction 381.81 [facility] [address], [place] [address]- 1225 Jul, Otalgia 388.70 and Otitis media 382.9 [facility] [address], [place] [address]- 4376 Jul, [facility] [address], [place] [address]- 4598 Jul, [facility] [address], [place] [address]- 8307 Jul, [facility] [address], [place] [address]- 8473 Jul, [facility] [address], [place] [address]- 1633 Jul, [facility] [address], [place] [address]- 4347 Jun, [facility] [address], [place] [address]- 8465 Jun, [facility] [address], [place] [address]- 4647 Jun, [facility] [address], [place] [address]- 7879 May, [facility] [address] 6336 May, [facility] [place] [facility] [address] [facility] [id number] [place] [address]- 9019 May, 2014 [facility] [place] [facility] [address] [id number] [place] [address]- 3896 May, 2014 [facility] [place] [facility] [address] [id number] [place] [address]- 2896 May, 2014 [facility] [place] [facility] [address] [id number] [place] [address]- 9845 May, 2014 [facility] [place] [facility] [address] [id number] [place] [address]- 8260 May, 2014 [facility] [place] [facility] [address] [id number] [place] [address] May, 2014 [facility] [place] [facility] [address] [id number] [place] [address] May, 2014 [facility] [place] [facility] [address] [id number] [place] [address] May, [facility] [place] [facility] [address] [id number] [place] [address] Apr, [facility] [place] [facility] [address] [id number] [place] [address] Apr, [facility] [place] [facility] [address] [id number] [place] [address] Apr, [facility] [place] [facility] [address] [id number] [place] [address] Apr, [facility] [place] [facility] [address] [id number] [place] [address] Apr, [facility] [place] [facility] [address] [id number] [place] [address] Apr, [facility] [place] [facility] [address] [id number] [place] [address] Apr, [facility] [place] [facility] [address] [id number] [place] [address] Apr, [facility] [place] [facility] [address] [id number] [place] [address] Apr, [facility] [place] [facility] [address] [id number] [place] [address] Apr, [facility] [place] [facility] [address] [id number] [place] [address] Apr, [facility] [place] [facility] [address] [id number] [place] [address] Apr, [facility] [place] [facility] [address] [id number] [place] [address] Apr, [facility] [place] [facility] [address] [id number] [place] [address] Apr, [facility] [place] [facility] [address] [id number] [place] [address] Apr, [facility] [place] [facility] [address] [address] [id number] [place] [address] Mar, [facility] [place] [facility] [address] [id number] [place] [address] Mar, [facility] [place] [facility] [address] [id number] [place] [address] 0867 Mar, [facility] [place] [facility] [address] [id number] [place] [address] 5669 Mar, [facility] [place] [facility] [address] [id number] [place] [address] 7544 Feb, [facility] [place] [facility] [address] [id number] [place] [address] 4811 Feb, [facility] [place] [facility] [address] [id number] [place] [address]- 6991 Feb, [facility] [place] [facility] [address] [id number] [place] [address]- 8070 Feb, [facility] [place] [facility] [address] [id number] [place] [address] 07 Jan, 2013 [facility] [place] [facility] [address] [id number] [place] [address] 4914 Jan, 2013 [facility] [place] [facility] [address] [id number] [place] [address] 38[address] Jan, 2013 [facility] [place] [facility] [address] [id number] [place] [address]- 63[address] Jan, 2013 [facility] [place] [facility] [address] [id number] [place] [address]- 1027 Jan, [facility] [place] [facility] [address] [id number] [place] [address]- 7909 Jan, [facility] [place] [facility] [address] [id number] [place] [address]- 1665 Jan, [facility] [place] [facility] [address] [id number] [place] [address]- 7866 Jan, [facility] [place] [facility] [address] [id number] [place] [address]- [address]271 Dec, [facility] [place] [facility] [address] [id number] [place] [address]- 7264 Dec, [facility] [place] [facility] [address] [id number] [place] [address]- 2165 Dec, [facility] [place] [facility] [address] [id number] [place] [address]- 8459 Dec, 2013 [facility] [place] [facility] [address] [id number] [place] [address] 1658 Oct, [facility] [place] [facility] [address] [id number] [place] [address]- 7510 Oct, [facility] [place] [facility] [address] [id number] [place] [address]- 8682 Oct, [facility] [place] [facility] [address] [id number] [place] [address]- 2894 Oct, [facility] [place] [facility] [address] [id number] [place] [address]- 1121 Oct, [facility] [place] [facility] [address] [id number] [place] [address]- 3026 Oct, [facility] [place] [facility] [address] [id number] [place] [address]- 3900 Oct, [facility] [place] [facility] [address] [id number] [place] [address]- 8024 Oct, [facility] [place] [facility] [address] [id number] [place] [address]- 2059 Sep, [facility] [place] [facility] [address] [id number] [place] [address]- 0096 Sep, [facility] [place] [facility] [address] [id number] [place] [address]- 0564 Sep, [facility] [place] [facility] [address] [id number] [place] [address]- 2846 Sep, [facility] [place] [facility] [address] [id number] [place] [address]- 6952 Sep, [facility] [place] [facility] [address] [id number] [place] [address]- 7778 Sep, [facility] [place] [facility] [address] [id number] [place] [address]- 3675 Sep, [facility] [place] [facility] [address] [id number] [place] [address]- 7673 Sep, [facility] [place] [facility] [address] [id number] [place] [address]- 2202 Sep, [facility] [place] [facility] [address] [id number] [place] [address]- 8352 Sep, [facility] [place] [facility] [address] [id number] [place] [address]- 4734 August, [facility] [place] [facility] [address] [id number] [place] [address]- 4241 August, [facility] [place] [facility] [address] [id number] [place] [address]- 6065 August, [facility] [place] [facility] [address] [id number] [place] [address]- 3256 August, [facility] [place] [facility] [address] [id number] [place] [address]- 6571 August, [facility] [place] [facility] [address] [id number] [place] [address]- 2955 August, [facility] [place] [facility] [address] [id number] [place] [address]- 0501 August, [facility] [place] [facility] [address] [id number] [place] [address]- 8876 August, [facility] [place] [facility] [address] [id number] [place] [address]- 3307 August, [facility] [place] [facility] [address] [id number] [place] [address]- 5577 August, [facility] [place] [facility] [address] [id number] [place] [address]- 4732 August, [facility] [place] [facility] [address] [id number] [place] [address]- 7677 August, [facility] [place] [facility] [address] [id number] [place] [address]- 2093 Jul, [facility] [place] [facility] [address] [id number] [place] [address]- 5142 Jul, [facility] [place] [facility] [address] [id number] [place] [address]- 6357 Jul, [facility] [place] [facility] [address] [id number] [place] [address]- 0476 Jul, [facility] [place] [facility] [address] [id number] [place] [address]- 1507 Jul, [facility] [place] [facility] [address] [id number] [place] [address]- 3089 Jul, [facility] [place] [facility] [address] [id number] [place] [address]- 6788 Jun, [facility] [place] [facility] [address] [id number] [place] [address]- 2310 Jun, [facility] [place] [facility] [address] [id number] [place] [address]- 7672 May, [facility] [place] [facility] [address] [id number] [place] [address]- 6261 May, [facility] [place] [facility] [address] [id number] [place] [address]- 0468 Apr, [facility] [place] [facility] [address] [id number] [place] [address]- 4578 Apr, [facility] [place] [facility] [address] [id number] [place] [address]- 1640 Apr, [facility] [place] [facility] [address] [id number] [place] [address]- 7585 Apr, [facility] [place] [facility] [address] [id number] [place] [address]- 4565 Apr, [facility] [place] [facility] [address] [id number] [place] [address]- 8537 Apr, [facility] [place] [facility] [address] [id number] [place] [address]- 9472 Apr, [facility] [place] [facility] [address] [id number] [place] [address]- 7670 Apr, [facility] [place] [facility] [address] [id number] [place] [address]- 6818 Apr, [facility] [place] [facility] [address] [id number] [place] [address]- 8386 Apr, [facility] [place] [facility] [address] [id number] [place] [address]- 6220 Apr, [facility] [place] [facility] [address] [id number] [place] [address]- 8420 Apr, [facility] [place] [facility] [address] [id number] [place] [address] Apr, [facility] [place] [facility] [address] [id number] [place] [address]- 4084 Mar, [facility] [place] [facility] [address] [id number] [place] [address]- 6334 Mar, [facility] [place] [facility] [address] [id number] [place] [address]- 9553 Mar, [facility] [place] [facility] [address] [id number] [place] [address]- 9375 Mar, [facility] [place] [facility] [address] [id number] [place] [address]- 1899 Feb, [facility] [place] [facility] [address] [id number] [place] [address]- 0689 Feb, [facility] [place] [facility] [address] [id number] [place] [address]- 3421 Feb, [facility] [place] [facility] [address] [id number] [place] [address]- 8513 Feb, [facility] [place] [facility] [address] [id number], [place] [address]- 6109 14 Jan, 2013 [facility] [place] [facility] [address] [id number], [place] [address]- 2252 14 Jan, 2013 [facility] [place] [facility] [address] [id number] [place] [address]- 1948 11 Jan, 2013 [facility] [place] [facility] [address] [id number] [place] [address]- 8440 11 Jan, 2013 [facility] [place] [facility] [address] [id number] [place] [address]- 3694 10 Jan, 2013 [facility] [place] [facility] [address] [id number] [place] [address]- 6501 Jan, [facility] [address] [id number] [place] [address]- 5449 Jan, [facility] [place] [facility] [address] [id number] [place] [address]- 0053 Jan, [facility] [address] [id number] [place] [address]- 4732 Jan, [facility] [address] [id number] [place] [address]- 6288 26 Dec, 2012 [facility] [address] [id number] [place] [address]- 1813 16 Dec, 2012 [facility] [address] [id number] [place] [address]- 6001 16 Dec, 2012 [facility] [address] [id number] [place] [address]- 9275 Dec, [facility] [address] [id number] [place] [address]- 1460 Nov, [facility] [address] [id number] [place] [address]- 4105 Nov, [facility] [address] [id number] [place] [address]- 3090 Nov, [facility] [place] [facility] [address] [id number] [place] [address]- 0885 Nov, [facility] [address] [id number] [place] [address]- 8974 Oct, [facility] [place] [facility] [address] [id number] [place] [address]- 0755 Sep, [facility] [place] [facility] [address] [id number] [place] [address]- 1462 August, [facility] [place] [facility] [address] [id number] [place] [address] August, [facility] [address] [id number] [place] [address]- 7025 August, [facility] [address] [id number] [place] [address]- 9762 August, [facility] [address] [id number] [place] [address]- 6365 August, [facility] [address] [id number] [place] [address]- 5970 August, [facility] [address] [id number] [place] [address]- 6624 August, [facility] [address] [id number] [place] [address]- 5533 August, [facility] [address] [id number] [place] [address]- 1777 August, [facility] [address] [id number] [place] [address]- 5028 August, [facility] [address] [id number] [place] [address]- 8309 August, [facility] [address] [id number] [place] [address]- 5219 August, [facility] [address] [id number] [place] [address]- 2387 Jul, [facility] [place] [facility] [address] [id number] [place] [address]- 0920 Jul, [facility] [place] [facility] [address] [id number] [place] [address]- 7332 Jul, [facility] [place] [facility] [address] [id number] [place] [address]- 7613 Jul, [facility] [place] [facility] [address] [id number] [place] [address]- 9459 Jul, [facility] [place] [facility] [address] [id number], [place] [address]- 3722 Jul, [facility] [address] [id number] [place] [address]- 1598 Jul, [facility] [place] [facility] [address] [id number] [place] [address]- 6043 Jul, [facility] [address] [id number] [place] [address]- 6113 Jul, [facility] [place] [facility] [address] [id number] [place] [address]- 3703 Jul, [facility] [address] [id number] [place] [address]- 0590 Jul, [facility] [address] [id number] [place] [address]- 4408 Jun, [facility] [id number] [place] [address]- 4780 Jun, [facility] [address] [id number] [place] [address]- 3488 Jun, [facility] [address] [id number] [place] [address]- 4682 Jun, [facility] [address] [id number] [place] [address]- 4971 May, [facility] [id number] [place] [address]- 8730 14 May, 2012 [facility] [place] [facility] [address] [id number], [place] [address]- 8357 05 May, 2012 [facility] [place] [facility] [address] [id number] [place] [address]- 4705 04 May, 2012 [facility] [place] [facility] [address] [id number], [place] [address]- 1058 04 May, 2012 [facility] [place] [facility] [address] [id number], [place] [address]- 3671 May, [facility] [place] [facility] [address] [id number] [place] [address]- 2234 Apr, [facility] [place] [facility] [address] [id number] [place] [address]- 8061 Apr, [facility] [place] [facility] [address] [id number] [place] [address]- 4501 Apr, [facility] [place] [facility] [address] [id number] [place] [address]- 1592 Apr, [facility] [address] [id number] [place] [address]- 1028 15 Mar, 2012 [facility] [place] [facility] [address] [id number] [place] [address]- 0588 Mar, [facility] [address] [id number] [place] [address]- 5646 Mar, [facility] [address] [id number] [place] [address]- 4103 Mar, [facility] [place] [facility] [address] [id number] [place] [address]- 5014 Mar, [facility] [place] [facility] [address] [id number] [place] [address]- 9125 Mar, [facility] [place] [facility] [address] [id number] [place] [address]- 0991 Mar, [facility] [place] [facility] [address] [id number] [place] [address]- 5938 Feb, [facility] [place] [facility] [address] [id number] [place] [address]- 5528 Feb, [facility] [place] [facility] [address] [id number] [place] [address]- 0142 Feb, [facility] [place] [facility] [address] [id number] [place] 4482 Feb, [facility] [place] [facility] [address] [id number] [place] [address]- 7041 Jan, [facility] [place] [facility] [address] [id number] [place] [address]- 2647 Jan, [facility] [place] [facility] [address] [id number] [place] [address]75 Jan, [facility] [place] [facility] [address] [id number] [place] [address]- 0109 Jan, [facility] [place] [facility] [address] [id number] [place] [address]- 9767 Jan, [facility] [place] [facility] [address] [id number] [place] [address]- 6681 Jan, [facility] [place] [facility] [address] [id number] [place] [address]- 0063 Dec, [facility] [place] [facility] [address] [id number] [place] [address]- 1701 Dec, [facility] [place] [facility] [address] [id number] [place] [address]- 3820 Nov, [facility] [place] [facility] [address] [id number] [place] [address]- 5114 Sep, [facility] [place] [facility] [address] [id number] [place] [address]- 1043 August, [facility] [place] [facility] [address] [id number] [place] [address]- 9141 August, [facility] [place] [facility] [address] [id number] [place] [address]- 3705 August, [facility] [place] [facility] [address] [id number] [place] [address]- 0089 August, [facility] [place] [facility] [address] [id number] [place] [address]- 5363 August, [facility] [place] [facility] [address] [id number] [place] [address]- 3474 Jun, [facility] [place] [facility] [address] [id number] [place] [address]- 6554 Jun, [facility] [place] [facility] [address] [id number] [place] [address]- 6466 Apr, [facility] [place] [facility] [address] [id number] [place] [address]- 8626 Apr, [facility] [place] [facility] [address] [id number] [place] [address]- 1335 Mar, [facility] [place] [facility] [address] [id number] [place] [address]- 4988 Feb, [facility] [place] [facility] [address] [id number] [place] [address]- 1000 Feb, [facility] [place] [facility] [address] [id number] [place] [address]- 2985 Feb, [facility] [place] [facility] [address] [id number] [place] [address]- 2412 17 Jan, 2011 [facility] [place] [facility] [address] [id number] [place] [address]- 5109 Jan, [facility] [place] [facility] [address] [id number] [place] [address]- 7113 Jan, [facility] [place] [facility] [address] [id number] [place] [address]- 4296 14 Jan, 2011 [facility] [place] [facility] [address] [id number] [place] [address]- 0138 15 May, 2010 [facility] [place] [facility] [address] [id number] [place] [address]- 6444 Mar, [facility] [place] [facility] [address] [id number] [place] [address]- 0226 Oct, [facility] [place] [facility] [address] [id number] [place] [address]- 2546 Sep, [facility] [place] [facility] [address] [id number] [place] [address]- 1626 Mar, [facility] [address] [id number], [place] [address]- 2585 Jan, [facility] [address] [id number], [place] [address]- 0996 Jan, [facility] [address] [id number], [place] [address]- 2546 May, IMMUNIZATIONS Vaccine Route Administration Date Status FLULAVAL QUAD (6 MO AND UP) 2017 IM Intramuscular May 03, 2017 Administered PCV 13 IM Intramuscular May 03, 2017 Administered TDAP (BOOSTRIX) IM Intramuscular May 03, 2017 Administered ZOSTER (ZOSTAVAX) SC Subcutaneous May 03, 2017 Administered SOCIAL HISTORY Never Assessed REASON FOR VISIT Ear pain both [facility] feel clogged[facility] States [facility] woke this morning and thinks she has UTI, back pain and states she goes frequently but that is normal PLAN OF CARE Activity Details Follow Up 3 months chronic pain Reason:pain/BP VITAL SIGNS Height 62 in 2017-05-03 Weight 179.9 lbs 2017-05-03 Temperature 98.0 degrees Fahrenheit 2017-05-03 Heart Rate 78 bpm 2017-05-03 Respiratory Rate 20 2017-05-03 BMI 32.90 kg/m2 2017-05-03 Blood pressure systolic 128 mmHg 2017-05-03 Blood pressure diastolic 80 mmHg 2017-05-03 MEDICATIONS Medication Instructions Dosage Frequency Start Date End Date Duration Status Lidocaine 4 % Externally Three times a day prn 1 application to affected area as needed Feb, Active Keflex 500 mg Orally 3 times a day 1 capsule 8h Apr, May, 10 day(s) Active Triamterene-HCTZ 37.5-25 MG Orally Once a day 1 tablet in the morning 24h 30 Active Cyclobenzaprine HCl 10 mg orally tid prn 1 tablet May, 28 days Active Amlodipine Besylate 5 mg Orally Once a day 1 tablet 24h Active Ibuprofen 800 MG Orally PRN for pain 1 tablet as needed Active Klor-Con 10 10 MEQ Orally Once a day 2 tablet with food 24h Active Pravastatin Sodium 20 mg TAKE ONE TABLET BY MOUTH AT BEDTIME 30 Active Meclizine HCl 25 MG Orally Once a day 1 tablet as needed 24h Active Hydrocodone-Acetaminophen 5-325 MG Orally 3 -4 times a day prn. must last 4 weeks 1 tablet as needed Apr, Active RESULTS No Results PROCEDURES Procedure Date Ordered Result Body Site URINALYSIS, AUTO, W/O SCOPE May 03, 2017 URINE CULTURE/COLONY COUNT May 03, 2017 SINGLE IMMUNIZATION ADMIN May 03, 2017 FLULAVAL QUAD (6 MO AND UP) 2017 May 03, 2017 IMMUNIZATION ADMIN, EACH ADD (please include units) May 03, 2017 ZOSTER (ZOSTAVAX) May 03, 2017 PCV 13 May 03, 2017 TDAP (BOOSTRIX) May 03, 2017 INSTRUCTIONS MEDICATIONS ADMINISTERED No Known Medications MEDICAL (GENERAL) HISTORY Type Description Date Medical History hypertension Medical History Colposcopy with loop electrode excision of the cervix was performed 06/2012, mild squamous atypia (no definite dyplasia). Performed at [facility] Dr. Joy. Medical History Acute [...]
--- OUTSIDE RECORDS SUMMARY | 2018-06-10 05:31 | XMS REPORT ---
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 Name Role Phone SIMA HODGES Unavailable PROBLEMS Type Condition ICD9-CM Code IOH14-QD Code Onset Dates Condition Status SNOMED Code Problem Anxiety F41.9 Active 71655235 Problem Abnormal glucose R73.09 Active 943153616 Problem Chronic pain due to trauma G89.21 Active 111612851 Problem Hypokalemia E87.6 Active 54719822 Problem Neck pain M54.2 Active 09927148 Problem Neuroforaminal stenosis of spine M99.89 Active [id number] Problem Mixed hyperlipidemia E78.2 Active 62906255 Problem Essential hypertension I10 Active 64380007 ALLERGIES No Information ENCOUNTERS Encounter Location Date Diagnosis [place] [id number] [place] [address] 28210- 6080 August, [place] [address] 06028- 7093 August, Neuroforaminal stenosis of spine M99.89 ; Mixed hyperlipidemia E78.2 ; Elevated fasting glucose R73.01 ; Screening mammogram, encounter for Z12.31 and Encounter for well woman exam without gynecological exam Z00.00 [facility] [id number] [place] [address] 29082- 9240 August, Neuroforaminal stenosis of spine M99.89 [facility] [facility] [address] 67851- 3769 August, Essential hypertension I10 ; Hypokalemia E87.6 and Mixed hyperlipidemia E78.2 [place] [id number] [place] [address] 00275- 7542 Jul, [place] [id number] [place] [address] 00685- 0194 Jul, Neuroforaminal stenosis of spine M99.89 [facility] [id number] [place] [address] 04708- 9826 Jul, Lateral epicondylitis, right elbow M77.11 [facility] [id number] [place] [address] 82095- 8926 Jul, [facility] [id number] [place] [address] 52983- 9586 Jun, High ankle sprain of right lower extremity, initial encounter S93.431A [place] [address] 90035- 0516 Jun, Essential hypertension I10 [place] [id number] [place] [address] 51839- 4729 Jun, [facility] [id number] [place] [address] 16135- 0816 Jun, [facility] [id number] [place] [address] 16853- 1893 Jun, Neuroforaminal stenosis of spine M99.89 [facility] [id number] [place] [address] 91709- 1717 Jun, Pain of right upper extremity M79.601 and Essential hypertension I10 [place] [id number] [place] [address] 67886- 9954 Jun, [place] [id number] [place] [address] 10123- 3683 Jun, Dysuria R30.0 ; Acute cystitis with hematuria N30.01 and Screen for STD (sexually transmitted disease) Z11.3 [facility] [id number] [place] [address] 87284- 6334 May, Chronic pain due to trauma G89.21 [place] [address] [place] [address] 2023 May, Essential hypertension I10 [place] [address] 87940- 0766 May, Neuroforaminal stenosis of spine M99.89 [facility] [address] 41536- 8214 Apr, Allergic reaction, initial encounter T78.40XA [facility] [address] 93119- 7913 Apr, Low back pain, unspecified back pain laterality, unspecified chronicity, with sciatica presence unspecified M54.5 ; Acute cystitis with hematuria N30.01 ; Neuroforaminal stenosis of spine M99.89 ; Bilateral acute serous otitis media, recurrence not specified H65.03 ; Mixed hyperlipidemia E78.2 ; Essential hypertension I10 ; Immunization counseling Z71.89 and Encounter for immunization Z23 [place] [address] 37764- 6550 Apr, Neck pain M54.2 [facility] [address] 07630- 5540 Mar, Neuroforaminal stenosis of spine M99.89 [facility] [place] [address] 17962- 6129 Mar, Pharyngitis due to other organism J02.8 [facility] [address] 97353- 8414 Feb, Neuroforaminal stenosis of spine M99.89 [facility] [address] 44640- 8128 08 Feb, 2017 UTI (urinary tract infection) N39.0 [place] [address] 04043- 3716 07 Feb, 2017 Recent urinary tract infection Z87.440 ; Neuroforaminal stenosis of spine M99.89 ; Neck pain M54.2 ; Chronic pain due to trauma G89.21 and Recurrent UTI N39.0 [facility] [id number] [place] [address] 13325- 2887 Feb, [facility] [address] 87099- 0213 Jan, Neuroforaminal stenosis of spine M99.89 [facility] [address] 22956- 6651 Dec, Neuroforaminal stenosis of spine M99.89 [facility] [id number] [place] [address] 48797- 0507 18 Dec, 2016 Acute seasonal allergic rhinitis due to pollen J30.1 [facility] [address] 05270- 5906 08 Dec, 2016 [place] [address] 75814- 1246 08 Dec, 2016 Acute seasonal allergic rhinitis, unspecified trigger J30.2 ; Allergic conjunctivitis of both eyes H10.13 and Dysfunction of both eustachian tubes H69.83 [place] [address] 68707- 8225 07 Dec, 2016 [place] [id number] [place] [address] 06551- 1253 Dec, Nevus D22.9 [facility] [address] 34377- 9264 Nov, Chronic pain due to trauma G89.21 and Neuroforaminal stenosis of spine M99.89 [facility] [id number] [place] [address] 93122- 0859 Nov, Neuroforaminal stenosis of spine M99.89 ; Essential hypertension I10 ; Mixed hyperlipidemia E78.2 ; Hypokalemia E87.6 ; Neck pain M54.2 and Nevus D22.9 [facility] [address] 50462- 0272 Oct, Neuroforaminal stenosis of spine M99.89 [facility] [address] [id number] [address]- 5867 Sep, Neuroforaminal stenosis of spine M99.89 [facility] [id number] [place] [address] 78066- 1256 Sep, [facility] [id number] [place] [address] 01267- 5866 August, [facility] [address] [facility] [place] [id number] [place] [address] 05306- 0453 August, Neck pain M54.2 and Neuroforaminal stenosis of spine M99.89 [facility] [id number] [place] [address] 49839- 0050 August, Routine gynecological examination Z01.419 and Screening breast examination Z12.39 [facility] [id number] [place] [address] 94957- 3976 Jul, [facility] [id number] [place] [address] 15041- 3700 Jul, [facility] [id number] [place] [address] 82621- 5331 Jul, Neuroforaminal stenosis of spine M99.89 [facility] [id number] [place] [address] 79715- 1679 Jul, [facility] [address] [facility] [place] [id number] [place] [address] 30707 2547 Jul, 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 [facility] [address] [facility] [place] [id number] [place] [address] 53861 2546 Jul, [facility] [address] [facility] [place] [id number] [place] [address] 92655- 2546 Jul, [facility] [id number] [place] [address] 19738- 4388 Jun, Neuroforaminal stenosis of spine M99.89 [place] [id number] [place] [address] 34413- 9208 Jun, Uterine leiomyoma, unspecified location D25.9 and Allergic reaction caused by a drug, initial encounter T78.40XA [place] [id number] [place] [address] 89915- 4921 Jun, [place] [address] 67228- 3843 May, UTI symptoms R39.9 and Pain of right sacroiliac joint M53.3 [place] [address] 05902- 9640 May, Neuroforaminal stenosis of spine M99.89 [place] [id number] [place] [address] 62423- 2699 May, [place] [address] 78946- 6571 May, Acute mucoid otitis media of left ear H65.112 and Acute non- recurrent maxillary sinusitis J01.00 [place] [id number] [place] [address] 94517- 7868 May, Acute bacterial conjunctivitis of both eyes H10.33 ; Left arm pain M79.602 and Hypokalemia E87.6 [place] [id number] [place] [address] 99746- 0329 Apr, [place] [id number] [place] [address] 57301- 9028 Apr, Neuroforaminal stenosis of spine M99.89 ; Neck pain M54.2 ; Chronic pain due to trauma G89.21 ; Mixed hyperlipidemia E78.2 ; Essential hypertension I10 and Hypokalemia E87.6 [place] [id number] [place] [address] 67518- 6362 Mar, Oral candidiasis B37.0 ; Neuroforaminal stenosis of spine M99.89 ; Neck pain M54.2 and Chronic pain due to trauma G89.21 [facility] [id number] [place] [address] 65125- 9529 Feb, [facility] [id number] [place] [address] 16378- 3086 Feb, [facility] [address] 17347- 9469 Feb, UTI (urinary tract infection) N39.0 [facility] [id number] [place] [address] 33852- 7722 Feb, Dysuria R30.0 [facility] [id number] [place] [address] 90069- 9080 Feb, Dysuria R30.0 [place] [address] 21998- 8737 Feb, Neuroforaminal stenosis of spine M99.89 ; Neck pain M54.2 ; Essential hypertension I10 ; Chronic pain due to trauma G89.21 ; Dysuria R30.0 ; Abnormal MRI, shoulder R93.8 and Acute cystitis without hematuria N30.00 [facility] [id number] [place] [address] 94775- 1482 Jan, [facility] [id number] [place] [address] 66861- 8920 Jan, [facility] [id number] [place] [address] 50987- 4583 Jan, [facility] [id number] [place] [address] 81903- 3832 Jan, Abnormal MRI R93.8 [facility] [id number] [place] [address] 86496- 3350 Dec, [facility] [id number] [place] [address] 56058 -7091 Dec, Acute pain of left shoulder M25.512 [facility] [address] [facility] [place] [id number] [address]- 5331 09 Dec, 2015 [facility] [address] [facility] [place] [id number], [place] [address]- [address] 08 Dec, 2015 [facility] [address] [address]- 3040 Dec, Acute pain of left shoulder M25.512 [facility] [address] [facility] [place] [id number], [place] [address]- 7379 Nov, [facility] [address] [facility] [place] [id number] [place] [address] 99527- 4194 Nov, Neuroforaminal stenosis of spine M99.89 ; Neck pain M54.2 ; Abnormal mammogram R92.8 ; Essential hypertension I10 and Chronic pain due to trauma G89.21 [facility] [id number] [address]- 2371 Nov, [facility] [id number] [address]- 5842 Oct, Acute stress disorder F43.0 [facility] [address] [id number] [address]- 1002 Oct, [facility] [address], [place] [address]- 8030 Oct, [facility] [address], [place] [address]- 8155 Oct, [facility] [address] [facility] [place] [id number], [place] [address]- 9598 Sep, [facility] [address] [facility] [place] [id number], [place] [address]- 6889 August, [facility] [address] [facility] [place] [id number], [place] [address]- 8957 Jul, Neuroforaminal stenosis of spine M99.89 ; Neck pain M54.2 ; Abnormal mammogram R92.8 and Essential hypertension I10 [facility] [address] [id number] [address] 2546 Jul, [facility] [id number] [place] [address] 37102 2546 Jul, [facility] [id number] [place] [address] 65220 2546 Jul, Abnormal mammogram R92.8 [facility] [id number] [place] [address] 85914 2546 Jul, [facility] [id number] [place] [address] 82075- 0899 Jul, UTI (urinary tract infection) N39.0 [facility] [id number] [place] [address] 09075 2546 Jul, Dysuria R30.0 [facility] [id number] [place] [address] 41459 2546 Jun, [facility] [id number] [place] [address] 53101 2546 Jun, [facility] [id number] [place] [address] 45658 2546 Jun, Hypokalemia E87.6 and Hematuria R31.9 [facility] [id number] [place] [address] 80704 2546 Jun, Hypokalemia E87.6 [facility] [address], [place] [address] 2546 Jun, [facility] [id number] [place] [address] 14714 2546 Jun, Hypokalemia E87.6 [facility] [id number] [place] [address] 03815 2546 Jun, Hypokalemia E87.6 [facility] [id number] [place] [address] 33152- 9113 15 Jun, 2015 Neuroforaminal stenosis of spine M99.89 ; Hypokalemia E87.6 ; Neck pain M54.2 ; Essential hypertension I10 ; Mixed hyperlipidemia E78.2 and Screening breast examination Z12.39 [facility] [id number] [place] [address] 90664- 4712 08 Jun, 2015 Dysuria R30.0 ; UTI (urinary tract infection) N39.0 and Hematuria R31.9 [place] [id number] [place] [address] 92421- 3529 May, [place] [id number] [place] [address] 98802- 0238 18 May, 2015 High risk sexual behavior Z72.51 ; Hypokalemia E87.6 ; Neuroforaminal stenosis of spine M99.89 ; Neck pain M54.2 ; Essential hypertension I10 ; Mixed hyperlipidemia E78.2 ; STD exposure Z20.2 and Concern about STD in female without diagnosis Z71.1 [place] [id number] [place] [address] 77769- 6203 16 May, 2015 Neuroforaminal stenosis of spine M99.89 ; Neck pain M54.2 ; Hypokalemia E87.6 ; Essential hypertension I10 and Mixed hyperlipidemia E78.2 [place] [id number] [place] [address] 64589- 8444 May, [facility] [id number] [place] [address] 14404 -5616 08 May, 2015 High risk sexual behavior Z72.51 ; STD exposure Z20.2 and Concern about STD in female without diagnosis Z71.1 [place] [id number] [place] [address] 27941- 8908 05 May, 2015 [facility] [id number] [place] [address] 04335- 7255 Apr, Neuroforaminal stenosis of spine M99.89 ; Mixed hyperlipidemia E78.2 ; Essential hypertension I10 and Hypokalemia E87.6 [facility] [id number] [place] [address] 94384- 8728 Mar, [facility] [id number] [place] [address] 26873- 3722 Mar, Hypokalemia E87.6 [facility] [address] 10401- 4945 Mar, Neuroforaminal stenosis of spine M99.89 ; Mixed hyperlipidemia E78.2 ; Neck pain M54.2 ; Essential hypertension I10 ; Abnormal fasting glucose R73.09 ; Hypokalemia E87.6 and Constipation K59.00 [place] [id number] [place] [address] 04540- 2035 Feb, Neuroforaminal stenosis of spine M99.89 ; Mixed hyperlipidemia E78.2 ; Neck pain M54.2 ; Essential hypertension I10 ; Abnormal fasting glucose R73.09 ; Hypokalemia E87.6 and Constipation K59.00 [place] [id number] [place] [address] 46762- 9724 Feb, Elevated fasting blood sugar R73.01 [place] [id number] [place] [address] 60118- 5492 Feb, Elevated fasting blood sugar R73.01 [place] [id number] [place] [address] 01420- 4299 Feb, Hair loss L65.9 [place] [id number] [place] [address] 67943- 8454 Feb, Sinusitis J32.9 ; Essential hypertension I10 and Hair loss L65.9 [facility] [id number] [place] [address] 72470- 8785 Jan, [facility] [id number] [place] [address] 73822- 9698 Jan, Essential hypertension I10 ; Neuroforaminal stenosis of spine M99.89 ; Neck pain M54.2 ; Mixed hyperlipidemia E78.2 and Anxiety F41.9 [place] [address] 65911- 8790 Jan, [place] [id number] [place] [address] 76282- 4616 Jan, Mixed hyperlipidemia E78.2 ; Essential (primary) hypertension I10 ; Strain of muscle, fascia and tendon at neck level, subsequent encounter S16.1XXD and Tension-type headache, unspecified, not intractable G44.209 [place] [address] 26704- 5814 Dec, Lumbar back pain 724.2 and Neuroforaminal stenosis of spine 724.00 [place] [address] 18249- 3059 Nov, [place] [address] 69459- 7430 Nov, Lumbar back pain 724.2 and Neuroforaminal stenosis of spine 724.00 [place] [address] 64861- 3518 Nov, Edema 782.3 ; Lumbar back pain 724.2 ; Essential hypertension, benign 401.1 ; Hyperlipemia 272.4 ; Neuroforaminal stenosis of spine 724.00 and Post-concussion headache 339.20 [place] [id number] [place] [address] 15151- 3170 Nov, [facility] [id number] [place] [address] 60292- 3707 Nov, [place] [address] 09338- 1503 Oct, Essential hypertension, benign 401.1 [place] [id number] [place] [address] 30257- 9001 Oct, Edema 782.3 ; Lumbar back pain 724.2 ; Essential hypertension, benign 401.1 ; Hyperlipemia 272.4 ; Neuroforaminal stenosis of spine 724.00 and Post-concussion headache 339.20 [facility] [id number] [place] [address] 59462- 4462 Oct, [facility] [id number] [place] [address] 95756- 8245 Oct, Edema 782.3 [facility] [address] 00204- 0561 Oct, Lumbar back pain 724.2 [place] [address] 22253- 9390 Oct, Cervicalgia 723.1 ; Lumbar back pain 724.2 and High risk medication use V58.69 [place] [id number] [place] [address] 36934- 7306 Sep, [facility] [id number] [place] [address] 82440- 9913 Sep, Lumbar strain 847.2 [place] [id number] [place] [address] 25682- 2991 August, Edema 782.3 and Eustachian tube dysfunction 381.81 [facility] [id number] [place] [address] 32591- 4391 August, [facility] [id number] [place] [address] 52072- 6097 August, Eustachian tube dysfunction 381.81 [facility] [id number] [place] [address] 49537- 1937 Jul, Otalgia 388.70 and Otitis media 382.9 [facility] [id number] [place] [address] 460[address]- 4589 Jul, [facility] [id number] [place] [address]44- 1261 Jul, [facility] [place] [facility] [address] [id number] [place] [address] 28 Jul, 2014 [facility] [place] [facility] [address] [id number] [place] [address] 0677 14 Jul, 2014 [facility] [place] [facility] [address] [id number] [place] [address] 2221 13 Jul, 2014 [facility] [place] [facility] [address] [id number] [place] [address]- 7922 27 Jun, 2014 [facility] [place] [facility] [address] [id number] [place] [address]- 5364 27 Jun, 2014 [facility] [place] [facility] [address] [id number] [place] [address]- 8967 16 Jun, 2014 [facility] [place] [facility] [address] [facility] [place] [id number] [place] [address]- 0403 26 May, 2014 [facility] [place] [facility] [address] [facility] [place] [facility] [id number] [place] [address]- 3702 May, 2014 [facility] [place] [facility] [address] [id number] [place] [address] 7338 May, [facility] [place] [facility] [address] [facility] [place] [id number] [place] [address]- 8964 May, 2014 [facility] [place] [facility] [address] [facility] [place] [facility] [id number] [place] [address]- 0102 May, 2014 [facility] [place] [facility] [address] [id number] [place] [address]- 4061 May, 2014 [facility] [place] [facility] [address] [id number] [place] [address]- 6072 09 May, 2014 [facility] [place] [facility] [address] [facility] [place] [facility] [id number] [place] [address] 05 May, 2014 [facility] [place] [facility] [address] [facility] [place] [facility] [id number] [place] [address]- 9689 May, 2014 [facility] [place] [facility] [address] [id number] [place] [address]- 6183 May, [facility] [address] [id number] [place] [address]- 1493 Apr, [facility] [place] [facility] [address] [id number] [place] [address]- 1793 Apr, [facility] [address] [id number] [place] [address] 0939 Apr, [facility] [place] [facility] [address] [id number] [place] [address]- 5587 Apr, [facility] [place] [facility] [address] [id number] [place] [address]- 7289 Apr, [facility] [place] [facility] [address] [id number] [place] [address]- 8940 Apr, [facility] [place] [facility] [address] [id number] [place] [address]- 0111 Apr, [facility] [address] [id number] [place] [address]- 5606 Apr, [facility] [place] [facility] [address] [id number] [place] [address]- 9296 Apr, [facility] [place] [facility] [address] [id number] [place] [address] 1982 Apr, [facility] [place] [facility] [address] [id number] [place] [address]- 5116 Apr, [facility] [place] [facility] [address] [id number] [place] [address] 3617 Apr, [facility] [place] [facility] [address] [id number] [place] [address]- 5584 Apr, [facility] [place] [facility] [address] [address] [id number] [place] [address] Apr, [facility] [place] [facility] [address] [id number] [place] [address] 15[address] Apr, [facility] [place] [facility] [address] [id number] [place] [address] Mar, [facility] [place] [facility] [address] [id number] [place] [address] Mar, [facility] [place] [facility] [address] [id number] [place] [address] 7565 Mar, [facility] [place] [facility] [address] [id number] [place] [address] 7497 Mar, [facility] [place] [facility] [address] [id number] [place] [address] 6528 Feb, [facility] [place] [facility] [address] [id number] [place] [address] 9815 Feb, [facility] [place] [facility] [address] [id number] [place] [address] 3947 Feb, [facility] [place] [facility] [address] [id number] [place] [address] 7531 Feb, [facility] [place] [facility] [address] [id number] [place] [address] 8[address] Jan, [facility] [place] [facility] [address] [id number], [place] [address] Jan, [facility] [place] [facility] [address] [id number], [place] [address] 9[address] Jan, [facility] [place] [facility] [address] [id number], [place] [address] 29[address] Jan, [facility] [place] [facility] [address] [id number] [place] [address]- 5260 Jan, [facility] [place] [facility] [address] [id number], [place] [address] 4206 Jan, [facility] [place] [facility] [address] [id number] [place] [address] Jan, [facility] [place] [facility] [address] [id number] [place] [address]- 5279 Jan, [facility] [place] [facility] [address] [id number] [place] [address]- 8531 29 Dec, 2013 [facility] [place] [facility] [address] [id number] [place] [address] 7033 29 Dec, 2013 [facility] [place] [facility] [address] [id number] [place] [address]- 7605 Dec, [facility] [place] [facility] [address] [id number] [place] [address]- 9432 Dec, [facility] [place] [facility] [address] [id number] [place] [address]- 5239 Oct, [facility] [place] [facility] [address] [id number] [place] [address]- 6668 Oct, 2013 [facility] [place] [facility] [address] [id number] [place] [address]- 5525 Oct, [facility] [place] [facility] [address] [id number] [place] [address]- 4204 Oct, [facility] [place] [facility] [address] [id number] [place] [address]- 5876 Oct, [facility] [place] [facility] [address] [id number] [place] [address]- 8712 Oct, [facility] [place] [facility] [address] [id number] [place] [address]- 8608 Oct, [facility] [place] [facility] [address] [id number] [place] [address]- 1836 Oct, [facility] [place] [facility] [address] [id number] [place] [address]- 2705 Sep, [facility] [place] [facility] [address] [id number] [place] [address]- 8170 Sep, [facility] [place] [facility] [address] [id number] [place] [address]- 7274 Sep, [facility] [place] [facility] [address] [id number] [place] [address]- 9525 Sep, [facility] [place] [facility] [address] [id number] [place] [address]- 4609 Sep, [facility] [place] [facility] [address] [id number] [place] [address]- 6018 Sep, [facility] [place] [facility] [address] [id number] [place] [address]- 4637 Sep, [facility] [place] [facility] [address] [id number] [place] [address]- 3899 Sep, [facility] [place] [facility] [address] [id number] [place] [address]- 0439 Sep, [facility] [place] [facility] [address] [id number] [place] [address]- 0297 Sep, [facility] [place] [facility] [address] [id number] [place] [address] 2667 August, [facility] [place] [facility] [address] [id number] [place] [address]- 7930 August, [facility] [place] [facility] [address] [id number] [place] [address]- 0982 August, [facility] [place] [facility] [address] [id number] [place] [address]- 3187 August, [facility] [place] [facility] [address] [id number] [place] [address]- 2384 August, [facility] [place] [facility] [address] [id number] [place] [address]- 9189 August, [facility] [place] [facility] [address] [id number] [place] [address] 1868 August, [facility] [place] [facility] [address] [id number] [place] [address]- 9033 August, [facility] [place] [facility] [address] [id number] [place] [address]- 7342 August, [facility] [place] [facility] [address] [id number] [place] [address]- 4232 August, [facility] [place] [facility] [address] [id number] [place] [address]- 1152 August, [facility] [place] [facility] [address] [id number] [place] [address]- 9893 August, [facility] [place] [facility] [address] [id number] [place] [address]- 7355 Jul, [facility] [place] [facility] [address] [id number] [place] [address]- 2189 Jul, [facility] [place] [facility] [address] [id number] [place] [address]- 8714 Jul, [facility] [place] [facility] [address] [id number] [place] [address]- 8371 Jul, [facility] [place] [facility] [address] [id number] [place] [address]- 7247 Jul, [facility] [place] [facility] [address] [id number] [place] [address]- 4953 Jul, [facility] [place] [facility] [address] [id number] [place] [address]- 1265 Jun, [facility] [place] [facility] [address] [id number] [place] [address]- 2621 Jun, [facility] [place] [facility] [address] [id number] [place] [address]- 1076 May, [facility] [place] [facility] [address] [id number] [place] [address]- 4477 May, [facility] [place] [facility] [address] [id number] [place] [address]- 9025 Apr, [facility] [place] [facility] [address] [id number] [place] [address]- 1819 Apr, [facility] [place] [facility] [address] [id number] [place] [address]- 3624 Apr, [facility] [address] [id number] [place] [address]- 2859 Apr, [facility] [address] [id number] [place] [address]- 1952 Apr, [facility] [address] [id number] [place] [address]- 8153 Apr, [facility] [address] [id number] [place] [address]- 9841 Apr, [facility] [address] [id number] [place] [address]- 3783 Apr, [facility] [address] [id number] [place] [address]- 8829 Apr, [facility] [address] [id number] [place] [address]- 3771 Apr, [facility] [address] [id number] [place] [address]- 2477 Apr, [facility] [address] [id number] [place] [address]- 1665 Apr, [facility] [address] [id number] [place] [address]- 0617 Apr, [facility] [address] [id number] [place] [address]- 4721 Mar, [facility] [address] [id number] [place] [address]- 8161 Mar, [facility] [place] [facility] [address] [id number] [place] [address]- 1029 Mar, [facility] [address] [id number] [place] [address]- 5386 Mar, [facility] [address] [id number] [place] [address]- 6886 Feb, [facility] [place] [facility] [address] [id number] [place] [address]- 7944 Feb, [facility] [place] [facility] [address] [id number] [place] [address]- 9382 Feb, [facility] [place] [facility] [address] [id number] [place] [address]- 2762 Feb, [facility] [place] [facility] [address] [id number] [place] [address]- 4851 Jan, [facility] [place] [facility] [address] [id number] [place] [address]- 7490 14 Jan, 2013 [facility] [place] [facility] [address] [id number] [place] [address]- 1693 Jan, [facility] [place] [facility] [address] [id number] [place] [address]- 7644 Jan, [facility] [place] [facility] [address] [id number], [place] [address]- 0597 Jan, [facility] [place] [facility] [address] [id number] [place] [address]- 4993 Jan, [facility] [place] [facility] [address] [id number], [place] [address]- 5111 Jan, [facility] [place] [facility] [address] [id number], [place] [address]- 6446 Jan, [facility] [place] [facility] [address] [id number], [place] [address]- 1805 Jan, [facility] [place] [facility] [address] [id number], [place] [address]- 9287 26 Dec, 2012 [facility] [place] [facility] [address] [id number], [place] [address]- 8332 16 Dec, 2012 [facility] [place] [facility] [address] [id number] 6349 16 Dec, 2012 [facility] [place] [facility] [address] [id number], [place] [address]- 2115 Dec, [facility] [address] [id number] [place] [address]- 8410 Nov, [facility] [address] [id number] [place] [address]- 3322 Nov, [facility] [address] [id number] [place] [address]- 0156 Nov, [facility] [address] [id number] [place] [address]- 9017 Nov, [facility] [address] [id number] [place] [address]- 1912 Oct, [facility] [address] [id number] [place] [address]- 1563 Sep, [facility] [address] [id number] [place] [address]- 4559 August, [facility] [address] [id number] [place] [address]- 8753 August, [facility] [address] [id number] [place] [address]- 8332 August, [facility] [address] [id number] [place] [address]- 1946 August, [facility] [address] [id number] [place] [address]- 6263 August, [facility] [address] [id number] [place] [address]- 4980 August, [facility] [address] [id number] [place] [address]- 0238 August, [facility] [address] [id number] [place] [address]- 1011 August, [facility] [address] [id number] [place] [address]- 9997 August, [facility] [address] [id number] [place] [address]- 2565 August, [facility] [address] [id number] [place] [address] August, [facility] [address] [id number] [place] [address]- 6366 August, [facility] [address] [id number] [place] [address]- 9573 Jul, [facility] [address] [id number] [place] [address]- 5430 Jul, [facility] [address] [id number] [place] [address]- 0345 Jul, [facility] [address] [id number] [place] [address]- 9385 Jul, [facility] [address] [id number] [place] [address]- 0443 Jul, [facility] [address] [id number] [place] [address]- 4025 Jul, [facility] [address] [id number] [place] [address]- 0006 Jul, [facility] [address] [id number] [place] [address]- 6192 Jul, [facility] [place] [facility] [address] [id number] [place] [address]- 6166 Jul, [facility] [place] [facility] [address] [id number] [place] [address]- 0336 Jul, [facility] [place] [facility] [address] [id number] [place] [address]8 Jul, [facility] [place] [facility] [address] [id number] [place] [address]- 5580 Jun, [facility] [place] [facility] [address] [id number] [place] [address]- 8532 Jun, [facility] [address] [id number] [place] [address]- 6865 Jun, [facility] [place] [facility] [address] [id number] [place] [address]- 6159 Jun, [facility] [address] [id number] [place] [address]- 2680 May, [facility] [place] [facility] [address] [id number] [place] [address]- 0020 May, [facility] [address] [id number] [place] [address]- 5635 May, [facility] [address] [id number] [place] [address]- 1231 May, [facility] [address] [id number] [place] [address]- 6572 May, [facility] [place] [facility] [address] [id number] [place] [address]- 1805 May, [facility] [address] [id number] [place] [address]- 5292 Apr, [facility] [place] [facility] [address] [id number] [place] [address]- 8892 Apr, [facility] [address] [id number] [place] [address]- 4517 Apr, [facility] [place] [facility] [address] [id number] [place] [address]- 7911 Apr, [facility] [place] [facility] [address] [id number] [place] [address]- 7221 Mar, [facility] [place] [facility] [address] [id number] [place] [address]- 8532 14 Mar, 2012 [facility] [place] [facility] [address] [id number] [place] [address]- 2563 Mar, [facility] [place] [facility] [address] [id number] [place] [address]- 5357 14 Mar, 2012 [facility] [place] [facility] [address] [id number] [place] [address]- 8134 14 Mar, 2012 [facility] [place] [facility] [address] [id number] [place] [address]- 7686 Mar, [facility] [place] [facility] [address] [id number] [place] [address]- 2584 Mar, [facility] [place] [facility] [address] [id number] [place] [address]- 5978 Feb, [facility] [place] [facility] [address] [id number] [place] [address]- 0956 Feb, [facility] [place] [facility] [address] [id number] [place] [address]- 2745 Feb, [facility] [place] [facility] [address] [id number] [place] [address]- 6936 Feb, [facility] [place] [facility] [address] [id number] [place] [address]- 0451 Jan, [facility] [place] [facility] [address] [id number] [place] [address]- 8098 Jan, [facility] [place] [facility] [address] [id number] [place] [address]- 7354 Jan, [facility] [place] [facility] [address] [id number] [place] [address]- 2755 Jan, [facility] [place] [facility] [address] [id number] [place] [address]- 1594 Jan, [facility] [place] [facility] [address] [id number] [place] [address]- 5855 Jan, [facility] [place] [facility] [address] [id number] [place] [address] 2546 09 Dec, 2011 [facility] [place] [facility] [address] [id number] [place] [address]- 5917 Dec, [facility] [address] [id number] [place] [address]- 2236 Nov, [facility] [place] [facility] [address] [id number] [place] [address]- 4739 Sep, [facility] [place] [facility] [address] [id number] [place] [address]- 1347 August, [facility] [place] [facility] [address] [id number] [place] [address]- 4235 August, [facility] [place] [facility] [address] [id number] [place] [address]- 8641 August, [facility] [place] [facility] [address] [id number] [place] [address]- 9880 August, [facility] [place] [facility] [address] [id number] [place] [address]- 8404 August, [facility] [place] [facility] [address] [id number] [place] [address]- 5927 Jun, [facility] [place] [facility] [address] [id number] [place] [address]- 6299 Jun, [facility] [place] [facility] [address] [id number] [place] [address]- 4252 Apr, [facility] [place] [facility] [address] [id number] [place] [address]- 9940 Apr, [facility] [place] [facility] [address] [id number] [place] [address]- 8724 Mar, [facility] [place] [facility] [address] [id number] [place] [address]- 2474 Feb, [facility] [place] [facility] [address] [id number] [place] [address]- 4049 Feb, [facility] [place] [facility] [address] [id number] [place] [address]- 2220 Feb, [facility] [place] [facility] [id number] [address]- 3273 17 Jan, 2011 [facility] [id number], [place] [address]- 2257 15 Jan, 2011 [facility] [id number], [place] [address]- 6690 15 Jan, 2011 [facility] [id number] [place] [address]126- 3068 14 Jan, 2011 [facility] [id number] [place] [address] 16950- 8036 May, [facility] [id number] [place] [address] 16205- 5590 Mar, [facility] [id number] [place] [address] 24444- 0561 Oct, [facility] [id number] [place] [address] 76089- 5538 Sep, [facility] [id number] [place] [address] 481061- 9499 Mar, [facility] [id number] [place] [address] 47611- 3371 Jan, [facility] [id number], [place] [address]- 9478 Jan, [facility] [id number], [place] [address]- 5879 May, IMMUNIZATIONS No Known Immunizations SOCIAL HISTORY [...]
--- OUTSIDE RECORDS SUMMARY | 2018-06-10 05:35 | XMS REPORT | Continuity of Care Document ---
Author Author [facility] Address Unknown Phone Unavailable Allergies Active Description Code Type Severity Reaction Onset Reported/Identified Relationship to Patient Clinical Status Yes NKDA NKDA Mild N/ A 07/10/2008 Yes Bactrim Drug Allergy N/A N/A [...] Food Allergy N/A N/A 10/18/2013 Yes sulfamethoxazole [id number] Drug Allergy Mild N/A 05/22/2014 Yes trimethoprim [id number] Drug Allergy Mild N/A 05/22/2014 Yes amitriptyline 25 mg tablet Drug Allergy N/A N/A 06/05/2014 Yes No Known Allergies No Known Allergies Drug Allergy Unknown N/A 2014 Yes amitriptyline NKMA N/A N/A 02/24/2016 Yes Cipro NKMA N/A N/ A 02/24/2016 Yes Macrobid NKMA N/A N/A 02/24/2016 Yes Peanuts egg-containing compound N/A N/A 02/24/2016 Yes peanut [id number] Drug Allergy Severe SOA, FACIAL SWE 05/21/2016 Yes Tree Nuts egg-containing compound N/A N/A 01/13/2017 Medications Medication Packaging Start Date Stop Date Route Dosage Sig meclizine(meclizine 25 mg oral tablet) 1 tabs 02/24/2016 Oral 25 mg 25 mg=1 tabs, Oral, Daily, 0 Refill(s) HYDROcodone-acetaminophen([place] 5 mg-325 mg oral tablet) 1 tabs 02/24/2016 Oral 1 tabs, Oral, q6hr, 0 Refill(s) amLODIPine(amLODIPine 5 mg oral tablet) 1 tabs 02/24/2016 Oral 5 mg 5 mg=1 tabs, Oral, Daily, 0 Refill(s) pravastatin(pravastatin) 2015 Oral 20 mg 20 mg , Oral, Daily, 0 Refill(s) triamterene-hydroCHLOROthiazide(triamterene-hydrochlorothiazide 37.5 mg-25 mg oral tablet) 1 tabs 02/24/2016 Oral 1 tabs, Oral, Daily, 0 Refill(s) traMADol(traMADol 50 mg oral tablet) 1 tabs 02/24/2016 Oral 50 mg 50 mg=1 tabs, Oral, Daily, 0 Refill(s) cyclobenzaprine(cyclobenzaprine 10 mg oral tablet) 1 tabs 02/24/2016 Oral 10 mg 10 mg=1 tabs, Oral, TID, PRN: as needed for spasm, 30 tabs, 0 Refill(s) triamcinolone(triamcinolone acetonide 40 mg/mL injectable suspension) 02/24/2016 02/24/2016 IntraARTICULAR 80 mg 80 mg, IntraARTICULAR, Once bupivacaine(Marcaine HCl 0.5% injectable solution) 4 mL 02/24/2016 02/24/2016 IntraARTICULAR 4 mL, IntraARTICULAR, Once triamcinolone(triamcinolone acetonide 40 mg/mL injectable suspension) 02/24/2016 02/24/2016 IntraARTICULAR 80 mg 80 mg, IntraARTICULAR, Once bupivacaine(Marcaine HCl 0.5% injectable solution) 4 mL 02/24/2016 02/24/2016 IntraARTICULAR 4 mL, IntraARTICULAR, Once EPINEPHrine(EpiPen 2-Андрей 0.3 mg injectable kit) 01/13/2017 IntraMuscular 0.3 mg 0.3 mg, IntraMuscular, Once, 0 Refill(s) Problems Date Dx Coded Attending Type Code Diagnosis Diagnosed By 03/09/1416 OTHER, UNLISTED Ot M75.82 OTHER SHOULDER LESIONS, LEFT SHOULDER 03/09/1527 JULIAN GALEANO MD Ot G89.29 03/09/1527 WALESKA ESCOBAR, JULIAN Diaz Ot M54.9 03/09/1544 CARL HODGESWNYLazaro Briseno STAIN REMOVER Ot M54.2 CERVICALGIA 03/09/1544 SIMA HODGES STAIN REMOVER Ot M54.5 LOW BACK PAIN 04/09/2008 NELSON DO, ROSANNA K 401.1 ESSENTIAL [...] RAMIREZ MD 401.1 ESSENTIAL HYPERTENSION BENIGN 04/09/2008 PACHECO WAGNER APRN A 401.1 ESSENTIAL HYPERTENSION BENIGN 04/09/2008 NELSON DO, ROSANNA K 401.1 ESSENTIAL HYPERTENSION BENIGN 04/09/2008 WILY RAMIREZ MD 401.1 ESSENTIAL HYPERTENSION BENIGN 04/09/2008 PACHECO WAGNER APRN A 401.1 ESSENTIAL HYPERTENSION BENIGN 04/09/2008 RAFA LAZO APRN 401.1 ESSENTIAL HYPERTENSION BENIGN 04/09/2008 NELSON [...] ROSANNA K 401.1 ESSENTIAL HYPERTENSION BENIGN 04/09/2008 WHITE DDS, AUSTIN D 401.1 ESSENTIAL HYPERTENSION BENIGN 04/09/2008 NELSON DO, ROSANNA K 401.1 ESSENTIAL HYPERTENSION BENIGN 04/09/2008 NELSON DO, ROSANNA K 401.1 ESSENTIAL HYPERTENSION BENIGN 04/09/2008 NELSON DO, ROSANNA K 401.1 ESSENTIAL HYPERTENSION BENIGN 04/09/2008 PACHECO WAGNER APRN A 401.1 ESSENTIAL HYPERTENSION BENIGN 04/09/2008 NELSON DO, ROSANNA K 401.1 ESSENTIAL HYPERTENSION BENIGN 04/09/2008 ONIEL HARRIS APRN 401.1 ESSENTIAL HYPERTENSION BENIGN 05/29/2008 NELSON DO, ROSANNA K 698.9 Itching (pruritus) 05/29/2008 NELSON DO, ROSANNA K 698.9 Itching (pruritus) 05/29/2008 698.9 Itching ( pruritus) 05/29/2008 698.9 Itching ( pruritus) 05/29/2008 NASRA RUVALCABA MD 698.9 Itching (pruritus) 05/29/2008 NELSON DO, ROSANNA K 698.9 Itching (pruritus) 05/29/2008 NGOC COREAS MD, BARTOLOME A 698.9 Itching (pruritus) 05/29/2008 698.9 Itching ( pruritus) 05/29/2008 NELSON DO ROSANNA K 698.9 Itching (pruritus) 05/29/2008 698.9 Itching ( pruritus) 05/29/2008 698.9 Itching ( pruritus) 05/29/2008 698.9 Itching ( pruritus) 05/29/2008 698.9 Itching ( pruritus) 05/29/2008 698.9 Itching ( pruritus) 05/29/2008 698.9 Itching ( pruritus) 05/29/2008 WLIY RAMIREZ MD 698.9 Itching (pruritus) 05/29/2008 PACHECO WAGNER APRN A 698.9 Itching (pruritus) 05/29/2008 NELSON DO ROSANNA K 698.9 Itching (pruritus) 05/29/2008 WILY RAMIREZ MD 698.9 Itching (pruritus) 05/29/2008 PACHECO WAGNER APRN A 698.9 Itching (pruritus) 05/29/2008 CLIFTON LEAD INGOT MOLDER, RAFA R 698.9 Itching (pruritus) 05/29/2008 NELSON DO, ROSANNA K 698.9 Itching (pruritus) 05/29/2008 SIMA HODGES APRN 698.9 Itching (pruritus) 05/29/2008 NELSON DO, ROSANNA K 698.9 Itching (pruritus) 05/29/2008 NELSON DO, ROSANNA K 698.9 Itching (pruritus) 05/29/2008 NELSON DO, ROSANNA K 698.9 Itching (pruritus) 05/29/2008 PACHECO WAGNER APRN A 698.9 Itching (pruritus) 05/29/2008 NELSON DO, ROSANNA K 698.9 Itching (pruritus) 05/29/2008 AUSTIN ROBERT DDS 698.9 Itching (pruritus) 05/29/2008 NELSON DO, ROSANNA K 698.9 Itching (pruritus) 05/29/2008 NELSON DO, ROSANNA K 698.9 Itching (pruritus) 05/29/2008 NELSON DO, ROSANNA K 698.9 Itching (pruritus) 05/29/2008 PACHECO WAGNER APRN A 698.9 Itching (pruritus) 05/29/2008 NELSON DO, ROSANNA K 698.9 Itching (pruritus) 05/29/2008 ONIEL HARRIS APRN 698.9 Itching (pruritus) 05/30/2008 NELSON DO ROSANNA K 272.0 HYPERCHOLESTEROLEMIA PURE 05/30/2008 NELSON DO ROSANNA K 272.0 HYPERCHOLESTEROLEMIA PURE 05/30/2008 272.0 HYPERCHOLESTEROLEMIA PURE 05/30/2008 272.0 HYPERCHOLESTEROLEMIA PURE 05/30/2008 JORDON ESCOBAR, NASRA 272.0 HYPERLIPIDEMIA FAMILIAL HYPERCHOLESTEROLEMIA 05/30/2008 NELSON SAGE JOHNSTONA K 272.0 HYPERLIPIDEMIA FAMILIAL HYPERCHOLESTEROLEMIA 05/30/2008 NGOC COREAS MD, BARTOLOME Willis 272.0 HYPERLIPIDEMIA FAMILIAL HYPERCHOLESTEROLEMIA 05/30/2008 272.0 HYPERLIPIDEMIA FAMILIAL HYPERCHOLESTEROLEMIA 05/30/2008 NELSON SAGE JOHNSTONA K 272.0 HYPERLIPIDEMIA FAMILIAL HYPERCHOLESTEROLEMIA 05/30/2008 272.0 HYPERLIPIDEMIA FAMILIAL HYPERCHOLESTEROLEMIA 05/30/2008 272.0 HYPERLIPIDEMIA FAMILIAL HYPERCHOLESTEROLEMIA 05/30/2008 272.0 HYPERLIPIDEMIA FAMILIAL HYPERCHOLESTEROLEMIA 05/30/2008 272.0 HYPERLIPIDEMIA FAMILIAL HYPERCHOLESTEROLEMIA 05/30/2008 272.0 HYPERLIPIDEMIA FAMILIAL HYPERCHOLESTEROLEMIA 05/30/2008 272.0 HYPERLIPIDEMIA FAMILIAL HYPERCHOLESTEROLEMIA 05/30/2008 JAMES ESCOBAR, WILY 272.0 HYPERLIPIDEMIA FAMILIAL HYPERCHOLESTEROLEMIA 05/30/2008 BERNARD CORRIGAN, PACHECO A 272.0 HYPERLIPIDEMIA FAMILIAL HYPERCHOLESTEROLEMIA 05/30/2008 ENLSON DO, ROSANNA K 272.0 HYPERLIPIDEMIA FAMILIAL HYPERCHOLESTEROLEMIA 05/30/2008 WILY RAMIREZ MD 272.0 HYPERLIPIDEMIA FAMILIAL HYPERCHOLESTEROLEMIA 05/30/2008 BERNARD CORRIGAN, PACHECO A 272.0 HYPERLIPIDEMIA FAMILIAL HYPERCHOLESTEROLEMIA 05/30/2008 JASPAL LAZO APRNINA R 272.0 HYPERLIPIDEMIA FAMILIAL HYPERCHOLESTEROLEMIA 05/30/2008 NELSON DO, ROSANNA K 272.0 HYPERLIPIDEMIA FAMILIAL HYPERCHOLESTEROLEMIA 05/30/2008 CARROLL CORRIGAN, SIMA L 272.0 HYPERLIPIDEMIA FAMILIAL HYPERCHOLESTEROLEMIA 05/30/2008 NELSON DO, ROSANNA K 272.0 HYPERLIPIDEMIA FAMILIAL HYPERCHOLESTEROLEMIA 05/30/2008 NELSON DO, ROSANNA K 272.0 HYPERLIPIDEMIA FAMILIAL HYPERCHOLESTEROLEMIA 05/30/2008 NELSON DO, ROSANNA K 272.0 HYPERLIPIDEMIA FAMILIAL HYPERCHOLESTEROLEMIA 05/30/2008 BERNARD CORRIGAN, PACHECO A 272.0 HYPERLIPIDEMIA FAMILIAL HYPERCHOLESTEROLEMIA 05/30/2008 NELSON DO, ROSANNA K 272.0 HYPERLIPIDEMIA FAMILIAL HYPERCHOLESTEROLEMIA 05/30/2008 WHITE DDS, AUSTIN D 272.0 HYPERLIPIDEMIA FAMILIAL HYPERCHOLESTEROLEMIA 05/30/2008 NELSON DO, ROSANNA K 272.0 HYPERLIPIDEMIA FAMILIAL HYPERCHOLESTEROLEMIA 05/30/2008 NELSON DO, ROSANNA K 272.0 HYPERLIPIDEMIA FAMILIAL HYPERCHOLESTEROLEMIA 05/30/2008 NELSON DO, ROSANNA K 272.0 HYPERLIPIDEMIA FAMILIAL HYPERCHOLESTEROLEMIA 05/30/2008 BERNARD CORRIGAN, PACHECO A 272.0 HYPERLIPIDEMIA FAMILIAL HYPERCHOLESTEROLEMIA 05/30/2008 NELSON DO, ROSANNA K 272.0 HYPERLIPIDEMIA FAMILIAL HYPERCHOLESTEROLEMIA 05/30/2008 ONIEL HARRIS APRN R 272.0 HYPERLIPIDEMIA FAMILIAL HYPERCHOLESTEROLEMIA 07/01/2008 NELSON DO, ROSANNA K 401.9 ESSENTIAL HYPERTENSION 07/01/2008 NELSON DO, ROSANNA K 401.9 ESSENTIAL HYPERTENSION 07/01/2008 401.9 ESSENTIAL HYPERTENSION 07/01/2008 401.9 ESSENTIAL HYPERTENSION 07/01/2008 JORDON ESCOBAR, NASRA 401.9 ESSENTIAL HYPERTENSION 07/01/2008 NELSON DO, ROSANNA K 401.9 ESSENTIAL HYPERTENSION 07/01/2008 NGOC COREAS MD, BARTOLOME A 401.9 ESSENTIAL HYPERTENSION 07/01/2008 401.9 ESSENTIAL HYPERTENSION 07/01/2008 NELSON DO, ROSANNA K 401.9 ESSENTIAL HYPERTENSION 07/01/2008 401.9 ESSENTIAL HYPERTENSION 07/01/2008 401.9 ESSENTIAL HYPERTENSION 07/01/2008 401.9 ESSENTIAL HYPERTENSION 07/01/2008 401.9 ESSENTIAL HYPERTENSION 07/01/2008 401.9 ESSENTIAL HYPERTENSION 07/01/2008 401.9 ESSENTIAL HYPERTENSION 07/01/2008 JAMES ESCOBAR, WILY 401.9 ESSENTIAL HYPERTENSION 07/01/2008 BERNARD CORRIGAN, PACHECO A 401.9 ESSENTIAL HYPERTENSION 07/01/2008 NELSON DO, ROSANNA K 401.9 ESSENTIAL HYPERTENSION 07/01/2008 WILY RAMIREZ MD 401.9 ESSENTIAL HYPERTENSION 07/01/2008 BERNARD CORRIGAN, PACHECO A 401.9 ESSENTIAL HYPERTENSION 07/01/2008 CLIFTON CORRIGAN RAFA R 401.9 ESSENTIAL HYPERTENSION 07/01/2008 NELSON DO, ROSANNA K 401.9 ESSENTIAL HYPERTENSION 07/01/2008 SIMA HODGES APRN 401.9 ESSENTIAL HYPERTENSION 07/01/2008 NELSON DO, ROSANNA K 401.9 ESSENTIAL HYPERTENSION 07/01/2008 NELSON DO, ROSANNA K 401.9 ESSENTIAL HYPERTENSION 07/01/2008 NELSON DO, ROSANNA K 401.9 ESSENTIAL HYPERTENSION 07/01/2008 BERNARD CORRIGAN, PACHECO A 401.9 ESSENTIAL HYPERTENSION 07/01/2008 NELSON DO, ROSANNA K 401.9 ESSENTIAL HYPERTENSION 07/01/2008 AUSTIN ROBERT DDS 401.9 ESSENTIAL HYPERTENSION 07/01/2008 NELSON DO, ROSANNA K 401.9 ESSENTIAL HYPERTENSION 07/01/2008 NELSON DO, ROSANNA K 401.9 ESSENTIAL HYPERTENSION 07/01/2008 NELSON DO, ROSANNA K 401.9 ESSENTIAL HYPERTENSION 07/01/2008 BERNARD CORRIGAN, PACHECO A 401.9 ESSENTIAL HYPERTENSION 07/01/2008 NELSON DO, ROSANNA K 401.9 ESSENTIAL HYPERTENSION 07/01/2008 ONIEL HARRIS APRN R 401.9 ESSENTIAL HYPERTENSION 02/03/2009 NELSON DO, ROSANNA K 719.44 COMPRESSION ARTHRALGIA - HAND 02/03/2009 NELSON DO, ROSANNA K 719.44 COMPRESSION ARTHRALGIA - HAND 02/03/2009 719.44 COMPRESSION ARTHRALGIA - HAND 02/03/2009 719.44 COMPRESSION ARTHRALGIA - HAND 02/03/2009 NASRA RUVALCABA MD 719.44 COMPRESSION ARTHRALGIA - HAND 02/03/2009 NELSON DO, ROSANNA K 719.44 COMPRESSION ARTHRALGIA - HAND 02/03/2009 NGOC COREAS MD, BARTOLOME A 719.44 COMPRESSION ARTHRALGIA - HAND 02/03/2009 719.44 [...] ARTHRALGIA - HAND 02/03/2009 RAFA LAZO APRN R 719.44 COMPRESSION ARTHRALGIA - HAND 02/03/2009 NELSON [...] K 719.44 COMPRESSION ARTHRALGIA - HAND 02/03/2009 AUSTIN ROBERT DDS 719.44 COMPRESSION ARTHRALGIA - HAND 02/03/2009 NELSON DO ROSANNA K 719.44 COMPRESSION ARTHRALGIA - HAND 02/03/2009 NELSON DO ROSANNA K 719.44 COMPRESSION ARTHRALGIA - HAND 02/03/2009 ROSANNA NELSON DO K 719.44 COMPRESSION ARTHRALGIA - HAND 02/03/2009 PACHECO WAGNER APRN A 719.44 COMPRESSION ARTHRALGIA - HAND 02/03/2009 NELSON ROSANNA JOHNSTON K 719.44 COMPRESSION ARTHRALGIA - HAND 02/03/2009 ONIEL HARRIS APRN 719.44 COMPRESSION ARTHRALGIA - HAND 03/18/2009 ROSANNA NLESON DO 382.00 Otitis Media Acute Without Spontaneous Rupture Eardrum 03/18/2009 ROSANNA NELSON DO K 382.00 Otitis Media Acute Without Spontaneous Rupture Eardrum 03/18/2009 382.00 Otitis Media Acute Without Spontaneous Rupture Eardrum 03/18/2009 382.00 Otitis Media Acute Without Spontaneous Rupture Eardrum 03/18/2009 NASRA RUVALCABA MD 382.00 Otitis Media Acute Without Spontaneous Rupture Eardrum 03/18/2009 ROSANNA JOHNSTON 382.00 Otitis Media Acute Without Spontaneous Rupture [...] Spontaneous Rupture Eardrum 03/18/2009 ROSANNA NELSON DO 382.00 Otitis Media Acute Without Spontaneous Rupture Eardrum 03/18/2009 WILY RAMIREZ MD 382.00 Otitis Media Acute Without Spontaneous Rupture Eardrum 03/18/2009 PACHECO WAGNER APRN A 382.00 Otitis Media Acute Without Spontaneous Rupture Eardrum 03/18/2009 CLIFTON LEAD INGOT MOLDER, RAFA R 382.00 Otitis Media Acute Without Spontaneous Rupture Eardrum 03/18/2009 NELSON DO, ROSANNA K 382.00 Otitis Media Acute Without Spontaneous Rupture Eardrum 03/18/2009 MADiFnn LEAD INGOT MOLDER, SIMA L 382.00 Otitis Media Acute Without Spontaneous Rupture Eardrum 03/18/2009 NELSON DO, ROSANNA K 382.00 Otitis Media Acute Without Spontaneous Rupture Eardrum 03/18/2009 NELSON DO, ROSANNA K 382.00 Otitis Media Acute Without Spontaneous Rupture Eardrum 03/18/2009 NELSON DO, ROSANNA K 382.00 Otitis Media Acute Without Spontaneous Rupture Eardrum 03/18/2009 BERNARD LEAD INGOT MOLDER, PACHECO A 382.00 Otitis Media Acute Without Spontaneous Rupture Eardrum 03/18/2009 NELSON DO, ROSANNA K 382.00 Otitis Media Acute Without Spontaneous Rupture Eardrum 03/18/2009 JAKOB DDS, AUSTIN D 382.00 Otitis Media Acute Without Spontaneous Rupture Eardrum 03/18/2009 NELSON DO, ROSANNA K 382.00 Otitis Media Acute Without Spontaneous Rupture Eardrum 03/18/2009 NELSON DO, ROSANNA K 382.00 Otitis Media Acute Without Spontaneous Rupture Eardrum 03/18/2009 NELSON DO, ROSANNA K 382.00 Otitis Media Acute Without Spontaneous Rupture Eardrum 03/18/2009 BERNARD LEAD INGOT MOLDER, PACHECO A 382.00 Otitis Media Acute Without Spontaneous Rupture Eardrum 03/18/2009 NELSON DO, ROSANNA K 382.00 Otitis Media Acute Without Spontaneous Rupture Eardrum 03/18/2009 KIMBERLY LEAD INGOT MOLDER, ONIEL R 382.00 Otitis Media Acute Without Spontaneous [...] Allergy, Unspecified 08/03/2009 NGOC COREAS MD, BARTOLOME A 995.3 Certain Adverse Effects Not Elsewhere [...] Not Elsewhere Classified, Allergy, Unspecified 08/03/2009 BERNARD ANDREWSN, PACHECO A 995.3 Certain Adverse Effects Not Elsewhere Classified, Allergy, Unspecified 08/03/2009 NESLON DO, ROSANNA K 995.3 Certain Adverse Effects Not Elsewhere Classified, Allergy, Unspecified 08/03/2009 WILY RAMIREZ MD 995.3 Certain Adverse Effects Not Elsewhere Classified, Allergy, Unspecified 08/03/2009 BERNARD LEAD INGOT MOLDER, PACHECO A 995.3 Certain Adverse Effects Not Elsewhere Classified, Allergy, Unspecified 08/03/2009 CLIFTON CORRIGAN, RAFA R 995.3 Certain Adverse Effects Not Elsewhere Classified, Allergy, Unspecified 08/03/2009 NELSON DO, ROSANNA K 995.3 Certain Adverse Effects Not Elsewhere Classified, Allergy, Unspecified 08/03/2009 CARROLL LEAD INGOT MOLDER, SIMA L 995.3 Certain Adverse Effects Not Elsewhere Classified, [...] Not Elsewhere Classified, Allergy, Unspecified 08/03/2009 JAKOB PARDOS, AUSTIN Cisneros 995.3 Certain Adverse Effects Not [...] NELSON DO, ROSANNA K 724.3 Sciatica 09/21/2009 NGOC COREAS MD, BARTOLOME Willis 388.70 Otalgia, Unspecified 09/21/2009 NGOC COREAS MD, BARTOLOME Willis 599.0 Urinary Tract Infection, Site Not Specified 09/21/2009 NGOC COREAS MD, BARTOLOME Willis 724.3 Sciatica 09/21/2009 388.70 Otalgia, Unspecified 09/21/2009 599.0 Urinary Tract Infection, Site Not Specified 09/21/2009 724.3 Sciatica 09/21/2009 NELSON DO, ROSANNA K [...] 09/21/2009 JAMES ESCOBAR, WILY 724.3 Sciatica 09/21/2009 PACHECO WAGNER APRN A 388.70 Otalgia, Unspecified 09/21/2009 BERNARD LEAD INGOT MOLDER, PACHECO A 599.0 Urinary Tract Infection, Site Not Specified 09/21/2009 BERNARD ANDREWSN, PACHECO A 724.3 Sciatica 09/21/2009 NELSON DO, ROSANNA K 388.70 Otalgia, Unspecified 09/21/2009 NELSON DO, ROSANNA K 599.0 Urinary Tract Infection, Site Not Specified 09/21/2009 NELSON DO, ROSANNA K 724.3 Sciatica 09/21/2009 JAMES ESCOBAR, WILY 388.70 Otalgia, Unspecified 09/21/2009 JAMES ESCOBAR, WILY 599.0 Urinary Tract Infection, Site Not Specified 09/21/2009 JAMES ESCOBAR, WILY 724.3 Sciatica 09/21/2009 BERNARD ANDREWSNAMIRAHPACHECO A 388.70 Otalgia, Unspecified 09/21/2009 BERNARD ANDREWSN, PACHECO A 599.0 Urinary Tract Infection, Site Not Specified 09/21/2009 BERNARD ANDREWSN, PACHECO A 724.3 Sciatica 09/21/2009 CLIFTON ANDREWSN, RAFA R 388.70 Otalgia, Unspecified 09/21/2009 CLIFTON LEAD INGOT MOLDER, RAFA R 599.0 Urinary Tract Infection, Site Not Specified 09/21/2009 CLIFTON ANDREWSN, RAFA R 724.3 Sciatica 09/21/2009 NELSON DO, ROSANNA K 388.70 Otalgia, Unspecified 09/21/2009 NELSON DO, ROSANNA K 599.0 Urinary Tract Infection, Site Not Specified 09/21/2009 NELSON DO, ROSANNA K 724.3 Sciatica 09/21/2009 MADL LEAD INGOT MOLDER, SIMA L 388.70 Otalgia, Unspecified 09/21/2009 MADL LEAD INGOT MOLDER, SIMA L 599.0 Urinary Tract Infection, Site Not Specified 09/21/2009 MADL LEAD INGOT MOLDER, SIMA L 724.3 Sciatica 09/21/2009 NELSON DO, [...] DO, ROSANNA K 724.3 Sciatica 09/21/2009 BERNARD LEAD INGOT MOLDER, PACHECO A 388.70 Otalgia, Unspecified 09/21/2009 BERNARD LEAD INGOT MOLDER, PACHECO A 599.0 Urinary Tract Infection, Site Not Specified 09/21/2009 BERNARD LEAD INGOT MOLDER, PACHECO A 724.3 Sciatica 09/21/2009 NELSON DO, [...] DO, ROSANNA K 724.3 Sciatica 09/21/2009 BERNARD LEAD INGOT MOLDER, PACHECO A 388.70 Otalgia, Unspecified 09/21/2009 BERNARD LEAD INGOT MOLDER, PACHECO A 599.0 Urinary Tract Infection, Site Not Specified 09/21/2009 BERNARD LEAD INGOT MOLDER, PACHECO A 724.3 Sciatica 09/21/2009 NELSON DO, ROSANNA K 388.70 Otalgia, Unspecified 09/21/2009 NELSON DO, ROSANNA K 599.0 Urinary Tract Infection, Site Not Specified 09/21/2009 NELSON DO, ROSANNA K 724.3 Sciatica 09/21/2009 HARRSI LEAD INGOT MOLDER, ONIEL R 388.70 Otalgia, Unspecified 09/21/2009 KIMBERLY LEAD INGOT MOLDER, ONIEL R 599.0 Urinary Tract Infection, Site Not Specified 09/21/2009 HARRIS LEAD INGOT MOLDER, ONIEL R 724.3 Sciatica 10/26/2009 NELSON DO ROSANNA K 796.2 ELEVATED BLOOD PRESSURE READING WITHOUT DIAGNOSIS OF HYPERTENSION 10/26/2009 NELSON DO ROSANNA K 796.2 ELEVATED BLOOD PRESSURE READING WITHOUT DIAGNOSIS OF HYPERTENSION 10/26/2009 796.2 ELEVATED BLOOD PRESSURE READING WITHOUT DIAGNOSIS OF HYPERTENSION 10/26/2009 796.2 ELEVATED BLOOD PRESSURE READING WITHOUT DIAGNOSIS OF HYPERTENSION 10/26/2009 JORDON ESCOBAR, NASRA 796.2 ELEVATED BLOOD PRESSURE READING WITHOUT DIAGNOSIS OF HYPERTENSION 10/26/2009 NELSON SAGE JOHNSTONA K 796.2 ELEVATED BLOOD PRESSURE READING WITHOUT DIAGNOSIS OF HYPERTENSION 10/26/2009 NGOC COREAS MD, BARTOLOME A 796.2 ELEVATED BLOOD PRESSURE READING WITHOUT DIAGNOSIS OF HYPERTENSION 10/26/2009 796.2 ELEVATED BLOOD PRESSURE READING WITHOUT DIAGNOSIS OF HYPERTENSION 10/26/2009 NELSON SAGE JOHNSTONA K 796.2 ELEVATED BLOOD PRESSURE READING WITHOUT [...] PRESSURE READING WITHOUT DIAGNOSIS OF HYPERTENSION 10/26/2009 RAFA LAZO APRN R 796.2 ELEVATED BLOOD PRESSURE READING WITHOUT DIAGNOSIS OF HYPERTENSION 10/26/2009 NELSON DO, ROSANNA K 796.2 ELEVATED BLOOD PRESSURE READING WITHOUT DIAGNOSIS OF HYPERTENSION 10/26/2009 SIMA HODGES APRN L 796.2 ELEVATED BLOOD PRESSURE READING WITHOUT DIAGNOSIS OF HYPERTENSION 10/26/2009 NELSON DO, ROSANNA K 796.2 ELEVATED BLOOD PRESSURE READING WITHOUT DIAGNOSIS OF HYPERTENSION 10/26/2009 NELSON DO, ROSANNA K 796.2 ELEVATED BLOOD PRESSURE READING WITHOUT DIAGNOSIS OF HYPERTENSION 10/26/2009 NELSON DO, ROSANNA K 796.2 ELEVATED BLOOD PRESSURE READING WITHOUT DIAGNOSIS OF HYPERTENSION 10/26/2009 AMIRAH WAGNER APRNIDI A 796.2 ELEVATED BLOOD PRESSURE READING WITHOUT [...] WITHOUT DIAGNOSIS OF HYPERTENSION 10/26/2009 NELSON DO, ROSANAN K 796.2 ELEVATED BLOOD PRESSURE READING WITHOUT [...] SCREENING, UNSPECIFIED 10/28/2009 NGOC COREAS MD, BARTOLOME A V76.10 BREAST SCREENING, UNSPECIFIED 10/28/2009 V76.10 BREAST SCREENING, UNSPECIFIED 10/28/2009 NELSON DO, ROSANNA K V76.10 BREAST SCREENING, UNSPECIFIED 10/28/2009 V76.10 BREAST SCREENING, UNSPECIFIED 10/28/2009 V76.10 BREAST SCREENING, UNSPECIFIED 10/28/2009 V76.10 BREAST SCREENING, UNSPECIFIED 10/28/2009 V76.10 BREAST SCREENING, UNSPECIFIED 10/28/2009 V76.10 BREAST SCREENING, UNSPECIFIED 10/28/2009 V76.10 BREAST SCREENING, UNSPECIFIED 10/28/2009 JAMES ESCOBAR, WILY V76.10 BREAST SCREENING, UNSPECIFIED 10/28/2009 BERNARD CORRIGAN, PACHECO A V76.10 BREAST SCREENING, UNSPECIFIED 10/28/2009 NELSON DO, ROSANNA K V76.10 BREAST SCREENING, UNSPECIFIED 10/28/2009 JAMES ESCOBAR, WILY V76.10 BREAST SCREENING, UNSPECIFIED 10/28/2009 BERNARD CORRIGAN, PACHECO A V76.10 BREAST SCREENING, UNSPECIFIED 10/28/2009 CLIFTON CORRIGAN, RAFA R V76.10 BREAST SCREENING, UNSPECIFIED 10/28/2009 NELSON DO, ROSANNA K V76.10 BREAST SCREENING, UNSPECIFIED 10/28/2009 CARROLL LEAD INGOT MOLDER, SIMA L V76.10 BREAST SCREENING, UNSPECIFIED 10/28/2009 NELSON DO, ROSANNA K V76.10 BREAST SCREENING, UNSPECIFIED 10/28/2009 NELSON DO, ROSANNA K V76.10 BREAST SCREENING, UNSPECIFIED 10/28/2009 NELSON DO, ROSANNA K V76.10 BREAST SCREENING, UNSPECIFIED 10/28/2009 BERNARD CORRIGAN, PACHECO A V76.10 BREAST SCREENING, UNSPECIFIED 10/28/2009 NELSON DO, ROSANNA K V76.10 BREAST SCREENING, UNSPECIFIED 10/28/2009 JAKOB DDS, AUSTIN Cisneros V76.10 BREAST SCREENING, UNSPECIFIED 10/28/2009 NELSON DO, ROSANNA K V76.10 BREAST SCREENING, UNSPECIFIED 10/28/2009 NELSON DO, ROSANNA K V76.10 BREAST SCREENING, UNSPECIFIED 10/28/2009 NELSON DO, ROSANNA K V76.10 BREAST SCREENING, UNSPECIFIED 10/28/2009 PACHECO WAGNER APRN A V76.10 BREAST SCREENING, UNSPECIFIED 10/28/2009 NELSON DO, ROSANNA K V76.10 BREAST SCREENING, UNSPECIFIED 10/28/2009 KIMBERLY CORRIGANONIEL Shilpa V76.10 BREAST SCREENING, UNSPECIFIED 12/16/2009 NELSON DO, [...] Sinusitis Acute 12/16/2009 NGOC COREAS MD, BARTOLOME Willis 786.2 Cough 12/16/2009 NOGC COREAS MD, BARTOLOME Willis 787.01 Nausea With Vomiting 12/16/2009 461.9 Sinusitis Acute 12/16/2009 786.2 Cough 12/16/2009 787.01 Nausea With Vomiting 12/16/2009 NELSON DO, ROSANNA K 461.9 Sinusitis Acute 12/16/2009 NELSON DO, ROSANNA K 786.2 Cough 12/16/2009 NELOSN DO, ROSANNA K 787.01 Nausea With Vomiting [...] Cough 12/16/2009 787.01 Nausea With Vomiting 12/16/2009 WILY RAMIREZ MD 461.9 Sinusitis Acute 12/16/2009 WILY RAMIREZ MD 786.2 Cough 12/16/2009 WILY RAMIREZ MD 787.01 Nausea With Vomiting 12/16/2009 PACHECO WAGNER APRN 461.9 Sinusitis Acute 12/16/2009 PACHECO WAGNER APRN 786.2 Cough 12/16/2009 PACHECO WAGNER APRN A 787.01 Nausea With Vomiting 12/16/2009 NELSON DO, ROSANNA K 461.9 Sinusitis Acute 12/16/2009 NELSON DO, ROSANNA K 786.2 Cough 12/16/2009 NELSON DO, ROSANNA K 787.01 Nausea With Vomiting 12/16/2009 WILY RAMIREZ MD 461.9 Sinusitis Acute 12/16/2009 WILY RAMIREZ MD 786.2 Cough 12/16/2009 WILY RAMIREZ MD 787.01 Nausea With Vomiting 12/16/2009 PACHECO WAGNER APRN A 461.9 Sinusitis Acute 12/16/2009 BERNARD LEAD INGOT MOLDER, PACHECO A 786.2 Cough 12/16/2009 BERNARD LEAD INGOT MOLDER, PACHECO A 787.01 Nausea With Vomiting 12/16/2009 CLIFTON LEAD INGOT MOLDER, RAFA R 461.9 Sinusitis Acute 12/16/2009 CLIFTON LEAD INGOT MOLDER, RAFA R 786.2 Cough 12/16/2009 CLIFTON LEAD INGOT MOLDER, RAFA R 787.01 Nausea With Vomiting 12/16/2009 NELSON DO, ROSANNA K 461.9 Sinusitis Acute 12/16/2009 NELSON DO, ROSANNA K 786.2 Cough 12/16/2009 NELSON DO, ROSANNA K 787.01 Nausea With Vomiting 12/16/2009 MADL LEAD INGOT MOLDER, SIMA L 461.9 Sinusitis Acute 12/16/2009 MADL LEAD INGOT MOLDER, SIMA L 786.2 Cough 12/16/2009 MADL LEAD INGOT MOLDER, SIMA L 787.01 Nausea With Vomiting 12/16/2009 [...] K 787.01 Nausea With Vomiting 12/16/2009 BERNARD LEAD INGOT MOLDER, PACHECO A 461.9 Sinusitis Acute 12/16/2009 BERNARD LEAD INGOT MOLDER, PACHECO A 786.2 Cough 12/16/2009 BERNARD LEAD INGOT MOLDER, PACHECO A 787.01 Nausea With Vomiting 12/16/2009 [...] K 787.01 Nausea With Vomiting 12/16/2009 BERNARD LEAD INGOT MOLDER, PACHECO A 461.9 Sinusitis Acute 12/16/2009 BERNARD LEAD INGOT MOLDER, PACHECO A 786.2 Cough 12/16/2009 BERNARD LEAD INGOT MOLDER, PACHECO A 787.01 Nausea With Vomiting 12/16/2009 NELSON DO, ROSANNA K 461.9 Sinusitis Acute 12/16/2009 NELSON DO, ROSANNA K 786.2 Cough 12/16/2009 NELSON DO, ROSANNA K 787.01 Nausea With Vomiting 12/16/2009 HARRIS LEAD INGOT MOLDER, ONIEL R 461.9 Sinusitis Acute 12/16/2009 HARRIS LEAD INGOT MOLDER, ONIEL R 786.2 Cough 12/16/2009 HARRIS LEAD INGOT MOLDER, ONIEL R 787.01 Nausea With Vomiting 12/21/2009 [...] Mucositis, Unspecified 12/31/2009 NGOC COREAS MD, BARTOLOME Willis 528.00 Stomatitis And Mucositis, Unspecified 12/31/2009 528.00 Stomatitis And Mucositis, Unspecified 12/31/2009 NELSON DO, ROSANNA K 528.00 Stomatitis And Mucositis, Unspecified 12/31/2009 528.00 Stomatitis And Mucositis, Unspecified 12/31/2009 528.00 Stomatitis And Mucositis, Unspecified 12/31/2009 528.00 Stomatitis And Mucositis, Unspecified 12/31/2009 528.00 Stomatitis And Mucositis, Unspecified 12/31/2009 528.00 Stomatitis And Mucositis, Unspecified 12/31/2009 528.00 Stomatitis And Mucositis, Unspecified 12/31/2009 WILY RAMIREZ MD 528.00 Stomatitis And Mucositis, Unspecified 12/31/2009 PACHECO WAGNER APRN A 528.00 Stomatitis And Mucositis, Unspecified 12/31/2009 NELSON DO, ROSANNA K 528.00 Stomatitis And Mucositis, Unspecified 12/31/2009 WILY RAMIREZ MD 528.00 Stomatitis And Mucositis, Unspecified 12/31/2009 PACHECO WAGNER APRN A 528.00 Stomatitis And Mucositis, Unspecified 12/31/2009 CLIFTON CORRIGAN RAFA R 528.00 Stomatitis And Mucositis, Unspecified 12/31/2009 NELSON DO, ROSANNA K 528.00 Stomatitis And Mucositis, Unspecified 12/31/2009 CARORLL CORRIGAN, SIMA L 528.00 Stomatitis And Mucositis, Unspecified 12/31/2009 NELSON DO, ROSANNA K 528.00 Stomatitis And Mucositis, Unspecified 12/31/2009 NELSON DO, ROSANNA K 528.00 Stomatitis And Mucositis, Unspecified 12/31/2009 NELSON DO, ROSANNA K 528.00 Stomatitis And Mucositis, Unspecified 12/31/2009 BERNARD CORRIGAN PACHECO A 528.00 Stomatitis And Mucositis, Unspecified 12/31/2009 NELSON DO, ROSANNA K 528.00 Stomatitis And Mucositis, Unspecified 12/31/2009 JAKOB DDS, AUSTIN Cisneros 528.00 Stomatitis And Mucositis, [...] Upper Respiratory Infection 03/13/2010 SIMA HODGES APRN 465.9 Upper Respiratory Infection 03/13/2010 NELSON DO, ROSANNA K 465.9 Upper Respiratory Infection 03/13/2010 NELSON DO, ROSANNA K 465.9 Upper Respiratory Infection 03/13/2010 NELSON DO, ROSANNA K 465.9 Upper Respiratory Infection 03/13/2010 BERNARDAMIRAH RIVERA APRNIDI A 465.9 Upper Respiratory Infection 03/13/2010 NELSON DO, ROSANNA K 465.9 Upper Respiratory Infection 03/13/2010 WHITE DDSAUSTIN Blayne 465.9 Upper Respiratory Infection 03/13/2010 NELSON DO, ROSANNA K 465.9 Upper Respiratory Infection 03/13/2010 NELSON DO, ROSANNA K 465.9 Upper Respiratory Infection 03/13/2010 NELSON DO, ROSANNA K 465.9 Upper Respiratory Infection 03/13/2010 BERNARD CORRIGAN, PACHECO A 465.9 Upper Respiratory Infection 03/13/2010 NELSON DO, ROSANNA K 465.9 Upper Respiratory Infection 03/13/2010 ONIEL HARRIS APRN 465.9 Upper Respiratory Infection 05/25/2010 NELSON DO ROSANNA K 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 DYSFUNCTION 05/25/2010 NELSON DO ROSANNA K 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 DYSFUNCTION 05/25/2010 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 DYSFUNCTION 05/25/2010 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 DYSFUNCTION 05/25/2010 JORDON ESCOBAR, NASRA 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 DYSFUNCTION 05/25/2010 NELSON SAGE JOHNSTONA K 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 DYSFUNCTION 05/25/2010 NGOC COREAS MD, BARTOLOME Willis 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 DYSFUNCTION 05/25/2010 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 DYSFUNCTION 05/25/2010 NELSON SAGE JOHNSTONA K 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 DYSFUNCTION 05/25/2010 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 DYSFUNCTION 05/25/2010 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 DYSFUNCTION 05/25/2010 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 DYSFUNCTION 05/25/2010 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 DYSFUNCTION 05/25/2010 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 DYSFUNCTION 05/25/2010 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 DYSFUNCTION 05/25/2010 WILY RAMIREZ MD 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 DYSFUNCTION 05/25/2010 BERNARD CORRIGAN, PACHECO A 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 DYSFUNCTION 05/25/2010 SAGE NELSON DOA K 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 DYSFUNCTION 05/25/2010 WILY RAMIREZ MD 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 DYSFUNCTION 05/25/2010 PACHECO WAGNER APRN A 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 DYSFUNCTION 05/25/2010 RAFA LAZO APRN 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 DYSFUNCTION 05/25/2010 NELSON DO, ROSANNA K 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 DYSFUNCTION 05/25/2010 SIMA HODGES APRN 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 DYSFUNCTION 05/25/2010 NELSON DO, ROSANNA K 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 DYSFUNCTION 05/25/2010 NELSON DO, ROSANNA K 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 DYSFUNCTION 05/25/2010 NELSON DO, ROSANNA K 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 DYSFUNCTION 05/25/2010 AMIRAH WAGNER APRNIDI A 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 DYSFUNCTION 05/25/2010 NELSON DO, ROSANNA K 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 DYSFUNCTION 05/25/2010 JAKOB PARDOSAUSTIN 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 DYSFUNCTION 05/25/2010 NELSON DO, ROSANNA K 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 DYSFUNCTION 05/25/2010 NELSON DO, ROSANNA K 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 DYSFUNCTION 05/25/2010 NELSON DO, ROSANNA K 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 DYSFUNCTION 05/25/2010 BERNARD CORRIGAN PACHECO A 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 DYSFUNCTION 05/25/2010 NELSON DO, ROSANNA K 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 DYSFUNCTION 05/25/2010 ONIEL HARRIS APRN 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 DYSFUNCTION 08/03/2010 NELSON DO, ROSANNA K 724.2 BACK [...] OF MUSCLE 08/03/2010 NGOC COREAS MD, BARTOLOME A 724.2 BACK PAIN, LOWER 08/03/2010 NGOC COREAS MD, BARTOLOME A 728.85 SPASM OF MUSCLE 08/03/2010 724.2 BACK [...] MD 728.85 Spasm Of Muscle 08/03/2010 BERNARD CORRIGAN, PACHECO A 724.2 BACK PAIN, LOWER 08/03/2010 BERNARD CORRIGAN, PACHECO A 728.85 Spasm Of Muscle 08/03/2010 NELSON DO, ROSANNA K 724.2 BACK PAIN, LOWER 08/03/2010 NELSON DO, ROSANNA K 728.85 Spasm Of Muscle 08/03/2010 WILY RAMIREZ MD 724.2 BACK PAIN, LOWER 08/03/2010 WILY RAMIREZ MD 728.85 Spasm Of Muscle 08/03/2010 BERNARD ANDREWSN, PACHECO A 724.2 BACK PAIN, LOWER 08/03/2010 BERNARD CORRIGAN PACHECO A 728.85 Spasm Of Muscle 08/03/2010 CLIFTON LEAD INGOT MOLDER, RAFA R 724.2 BACK PAIN, LOWER 08/03/2010 CLIFTON LEAD INGOT MOLDER, RAFA R 728.85 Spasm Of Muscle 08/03/2010 NELSON DO, ROSANNA K 724.2 BACK PAIN, LOWER 08/03/2010 NELSON DO, ROSANNA K 728.85 Spasm Of Muscle 08/03/2010 MADL LEAD INGOT MOLDER, SIMA L 724.2 BACK PAIN, LOWER 08/03/2010 MADL LEAD INGOT MOLDER, SIMA L 728.85 Spasm Of Muscle 08/03/2010 NELSON DO, ROSANNA K 724.2 BACK PAIN, LOWER 08/03/2010 NELSON DO, ROSANNA K 728.85 Spasm Of Muscle 08/03/2010 NELSON DO, ROSANNA K 724.2 BACK PAIN, LOWER 08/03/2010 NELSON DO, ROSANNA K 728.85 Spasm Of Muscle 08/03/2010 NELSON DO, ROSANNA K 724.2 BACK PAIN, LOWER 08/03/2010 NELSON DO, ROSANNA K 728.85 Spasm Of Muscle 08/03/2010 BERNARD LEAD INGOT MOLDER, PACHECO A 724.2 BACK PAIN, LOWER 08/03/2010 BERNARD LEAD INGOT MOLDER, PACHECO A 728.85 Spasm Of Muscle 08/03/2010 [...] K 728.85 Spasm Of Muscle 08/03/2010 BERNARD LEAD INGOT MOLDER, PACHECO A 724.2 BACK PAIN, LOWER 08/03/2010 BERNARD LEAD INGOT MOLDER, PACHECO A 728.85 Spasm Of Muscle 08/03/2010 SAGE NELSON DOA K 724.2 BACK PAIN, LOWER 08/03/2010 LESLIE JOHNSTON, ROSANNA K 728.85 Spasm Of Muscle 08/03/2010 CYNTHIA HARRIS APRNIA R 724.2 BACK PAIN, LOWER 08/03/2010 KIMBERLEY HARRIS APRNRICIA R 728.85 Spasm Of Muscle 08/12/2010 SAGE NELSON DOA K 386.2 VERTIGO OF CENTRAL ORIGIN 08/12/2010 SAGE NELSON DOA K 386.2 VERTIGO OF CENTRAL ORIGIN 08/12/2010 386.2 VERTIGO OF CENTRAL ORIGIN 08/12/2010 386.2 VERTIGO OF CENTRAL ORIGIN 08/12/2010 NASRA RUVALCABA MD 386.2 VERTIGO OF CENTRAL ORIGIN 08/12/2010 ROSANNA NELSON DO 386.2 Vertigo Of Central Origin 08/12/2010 NGOC COREAS MD, BARTOLOME Willis 386.2 Vertigo Of Central Origin 08/12/2010 386.2 Vertigo Of Central Origin 08/12/2010 ROSANNA NELSON DO K 386.2 Vertigo Of Central Origin 08/12/2010 386.2 Vertigo Of Central Origin 08/12/2010 386.2 Vertigo Of Central Origin 08/12/2010 386.2 Vertigo Of Central Origin 08/12/2010 386.2 Vertigo Of Central Origin 08/12/2010 386.2 Vertigo Of Central Origin 08/12/2010 386.2 Vertigo Of Central Origin 08/12/2010 WILY RAMIREZ MD 386.2 Vertigo Of Central Origin 08/12/2010 PACHECO WAGNER APRN A 386.2 Vertigo Of Central Origin 08/12/2010 ROSANNA NELSON DO K 386.2 Vertigo Of Central Origin 08/12/2010 WILY RAMIREZ MD 386.2 Vertigo Of Central Origin 08/12/2010 PACHECO WAGNER APRN A 386.2 Vertigo Of Central Origin 08/12/2010 RAFA LAZO APRN 386.2 Vertigo Of Central Origin 08/12/2010 ROSANNA NELSON DO K 386.2 Vertigo Of Central Origin 08/12/2010 SIMA HODGES APRN 386.2 Vertigo Of Central Origin 08/12/2010 ROSANNA NELSON DO K 386.2 Vertigo Of Central Origin 08/12/2010 NELSON DO, ROSANNA K 386.2 Vertigo Of Central Origin 08/12/2010 NELSON DO, ROSANNA K 386.2 Vertigo Of Central Origin 08/12/2010 BERNARD CORRIGAN, PACHECO A 386.2 Vertigo Of Central Origin 08/12/2010 NELSON DO, ROSANNA K 386.2 Vertigo Of Central Origin 08/12/2010 WHITE DDS, AUSTIN D 386.2 Vertigo Of Central Origin 08/12/2010 NELSON DO, ROSANNA K 386.2 Vertigo Of Central Origin 08/12/2010 NELSON DO, ROSANNA K 386.2 Vertigo Of Central Origin 08/12/2010 NELSON DO, ROSANNA K 386.2 Vertigo Of Central Origin 08/12/2010 BERNARD CORRIGAN, PACHECO A 386.2 Vertigo Of Central Origin 08/12/2010 NELSON DO, ROSANNA K 386.2 Vertigo Of Central Origin 08/12/2010 KIMBERLY CORRIGAN ONIEL Massey 386.2 Vertigo Of Central Origin 08/26/2010 NELSON [...] 08/26/2010 790.29 Other Abnormal Glucose 08/26/2010 NELSON DO ROSANNA K 790.29 Other Abnormal Glucose 08/26/2010 790.29 Other Abnormal Glucose 08/26/2010 790.29 Other Abnormal Glucose 08/26/2010 790.29 Other Abnormal Glucose 08/26/2010 790.29 Other Abnormal Glucose 08/26/2010 790.29 Other Abnormal Glucose 08/26/2010 790.29 Other Abnormal Glucose 08/26/2010 WILY RAMIREZ MD 790.29 Other Abnormal Glucose 08/26/2010 PACHECO WAGNER APRN A 790.29 Other Abnormal Glucose 08/26/2010 NELSON SAGE JOHNSTONA K 790.29 Other Abnormal Glucose 08/26/2010 WILY RAMIREZ MD 790.29 Other Abnormal Glucose 08/26/2010 BERNARD ANDREWSN, PACHECO A 790.29 Other Abnormal Glucose 08/26/2010 CLIFTON JASPAL CORRIGANINA R 790.29 Other Abnormal Glucose 08/26/2010 NELSON DO, ROSANNA K 790.29 Other Abnormal Glucose 08/26/2010 SIMA HODGES APRN L 790.29 Other Abnormal Glucose 08/26/2010 NELSON DO, ROSANNA K 790.29 Other Abnormal Glucose 08/26/2010 NELSON DO, ROSANNA K 790.29 Other Abnormal Glucose 08/26/2010 NELSON DO, ROSANNA K 790.29 Other Abnormal Glucose 08/26/2010 BERNARDMIGUEL ANDREWSN, PACHECO A 790.29 Other Abnormal Glucose 08/26/2010 NELSON DO, ROSANNA K 790.29 Other Abnormal Glucose 08/26/2010 AUSTIN ROBERT DDS D 790.29 Other Abnormal Glucose 08/26/2010 NELSON DO, ROSANNA K 790.29 Other Abnormal Glucose 08/26/2010 NELSON DO, ROSANNA K 790.29 Other Abnormal Glucose 08/26/2010 NELSON DO, ROSANNA K 790.29 Other Abnormal Glucose 08/26/2010 BERNARD ANDREWSN, PACHECO A 790.29 Other Abnormal Glucose 08/26/2010 NELSON DO, ROSANNA K 790.29 Other Abnormal Glucose 08/26/2010 CYNTHIA HARRIS APRNIA R 790.29 Other Abnormal Glucose 12/09/2010 NELSON DO, ROSANNA K 780.4 DIZZINESS AND VERTIGO 12/09/2010 NELSON DO, ROSANNA K 780.4 DIZZINESS AND VERTIGO 12/09/2010 780.4 DIZZINESS AND VERTIGO 12/09/2010 780.4 DIZZINESS AND VERTIGO 12/09/2010 JORDON ESCOBAR, NASRA 780.4 DIZZINESS AND VERTIGO 12/09/2010 NELSON DO, [...] MD 780.4 Dizziness And Vertigo 12/09/2010 BERNARD LEAD INGOT MOLDER, PACHECO A 780.4 Dizziness And Vertigo 12/09/2010 NELSON DO, ROSANNA K 780.4 Dizziness And Vertigo 12/09/2010 WILY RAMIREZ MD 780.4 Dizziness And Vertigo 12/09/2010 BERNARD LEAD INGOT MOLDER, PACHECO A 780.4 Dizziness And Vertigo 12/09/2010 CLIFTON CORRIGAN, RAFA R 780.4 Dizziness And Vertigo 12/09/2010 NELSON DO, ROSANNA K 780.4 Dizziness And Vertigo 12/09/2010 SIMA HODGES APRN 780.4 Dizziness And Vertigo 12/09/2010 NELSON DO, ROSANNA K 780.4 Dizziness And Vertigo 12/09/2010 NELSON DO, ROSANNA K 780.4 Dizziness And Vertigo 12/09/2010 NELSON DO, ROSANNA K 780.4 Dizziness And Vertigo 12/09/2010 BERNARD CORRIGAN, PACHECO A 780.4 Dizziness And Vertigo 12/09/2010 NELSON DO, ROSANNA K 780.4 Dizziness And Vertigo 12/09/2010 AUSTIN ROBERT DDS 780.4 Dizziness And Vertigo 12/09/2010 NELSON DO, ROSANNA K 780.4 Dizziness And Vertigo 12/09/2010 NELSON DO, ROSANNA K 780.4 Dizziness And Vertigo 12/09/2010 NELSON DO, ROSANNA K 780.4 Dizziness And Vertigo 12/09/2010 BERNARD LEAD INGOT MOLDER, PACHECO A 780.4 Dizziness And Vertigo 12/09/2010 NELSON DO, ROSANNA K 780.4 Dizziness And Vertigo 12/09/2010 ONIEL HARRIS APRN R 780.4 Dizziness And Vertigo 01/22/2011 NELSON DO, ROSANNA K 462 ACUTE PHARYNGITIS 01/22/2011 NELSON DO, ROSANNA K 462 ACUTE PHARYNGITIS 01/22/2011 462 ACUTE PHARYNGITIS 01/22/2011 462 ACUTE PHARYNGITIS 01/22/2011 JORDON ESCOBAR, NASRA 462 ACUTE PHARYNGITIS 01/22/2011 NELSON DO, ROSANNA K 462 Acute Pharyngitis 01/22/2011 NGOC COREAS MD, BARTOLOME A 462 Acute Pharyngitis 01/22/2011 462 Acute Pharyngitis 01/22/2011 NELSON DO ROSANNA K 462 Acute Pharyngitis 01/22/2011 462 Acute Pharyngitis 01/22/2011 462 Acute Pharyngitis 01/22/2011 462 Acute Pharyngitis 01/22/2011 462 Acute Pharyngitis 01/22/2011 462 Acute Pharyngitis 01/22/2011 462 Acute Pharyngitis 01/22/2011 WILY RAMIREZ MD 462 Acute Pharyngitis 01/22/2011 PACHECO WAGNER APRN A 462 Acute Pharyngitis 01/22/2011 LESLIE JOHNSTON ROSANNA K 462 Acute Pharyngitis 01/22/2011 WILY RAMIREZ MD 462 Acute Pharyngitis 01/22/2011 PACHECO WAGNER APRN A 462 Acute Pharyngitis 01/22/2011 RAFA LAZO APRN 462 Acute Pharyngitis 01/22/2011 NELSON DO ROSANNA K 462 Acute Pharyngitis 01/22/2011 SIMA HODGES APRN L 462 Acute Pharyngitis 01/22/2011 NELSON DO, ROSANNA K 462 Acute Pharyngitis 01/22/2011 NELSON DO, ROSANNA K 462 Acute Pharyngitis 01/22/2011 NELSON DO, ROSANNA K 462 Acute Pharyngitis 01/22/2011 AMIRAH WAGNER APRNIDI A 462 Acute Pharyngitis 01/22/2011 NELSON DO, ROSANNA K 462 Acute Pharyngitis 01/22/2011 AUSTIN ROBERT DDS 462 Acute Pharyngitis 01/22/2011 NELSON DO, ROSANNA K 462 Acute Pharyngitis 01/22/2011 NELSON DO, ROSANNA K 462 Acute Pharyngitis 01/22/2011 NELSON DO, ROSANNA K 462 Acute Pharyngitis 01/22/2011 AMIRAH WAGNER APRNIDI A 462 Acute Pharyngitis 01/22/2011 NELSON DO ROSANNA K 462 Acute Pharyngitis 01/22/2011 ONIEL HARRIS APRN 462 Acute Pharyngitis 02/21/2011 NELSON DO, ROSANNA K 372.30 CONJUNCTIVITIS UNSPECIFIED 02/21/2011 NELSON DO, ROSANNA K 372.30 CONJUNCTIVITIS UNSPECIFIED 02/21/2011 372.30 CONJUNCTIVITIS UNSPECIFIED 02/21/2011 372.30 CONJUNCTIVITIS UNSPECIFIED 02/21/2011 JORDON ESCOBAR, NASRA 372.30 CONJUNCTIVITIS UNSPECIFIED 02/21/2011 NELSON DO, ROSANNA K 372.30 Conjunctivitis Unspecified 02/21/2011 NGOC COREAS MD, BARTOLOME A 372.30 Conjunctivitis Unspecified 02/21/2011 372.30 Conjunctivitis Unspecified 02/21/2011 NELSON DO, ROSANNA K 372.30 Conjunctivitis Unspecified 02/21/2011 372.30 Conjunctivitis Unspecified 02/21/2011 372.30 Conjunctivitis Unspecified 02/21/2011 372.30 Conjunctivitis Unspecified 02/21/2011 372.30 Conjunctivitis Unspecified 02/21/2011 372.30 Conjunctivitis Unspecified 02/21/2011 372.30 Conjunctivitis Unspecified 02/21/2011 WILY RAMIREZ MD 372.30 Conjunctivitis Unspecified 02/21/2011 PACHECO WAGNER APRN A 372.30 Conjunctivitis Unspecified 02/21/2011 NELSON DO, ROSANNA K 372.30 Conjunctivitis Unspecified 02/21/2011 WILY RAMIREZ MD 372.30 Conjunctivitis Unspecified 02/21/2011 BERNARD CORRIGAN PACHECO A 372.30 Conjunctivitis Unspecified 02/21/2011 RAFA [...] DO, ROSANNA K 372.30 Conjunctivitis Unspecified 02/21/2011 PACHECO WAGNER APRN A 372.30 Conjunctivitis Unspecified 02/21/2011 NELSON DO, ROSANNA K 372.30 Conjunctivitis Unspecified 02/21/2011 ONIEL HARRIS APRN 372.30 Conjunctivitis Unspecified 04/29/2011 NELSON DO, ROSANNA K 388.70 OTALGIA 04/29/2011 NELSON DO, ROSANNA K 388.70 OTALGIA 04/29/2011 388.70 OTALGIA 04/29/2011 388.70 OTALGIA 04/29/2011 JORDON ESCOBAR, NASRA 388.70 OTALGIA 04/29/2011 NELSON DO, ROSANNA K 388.70 Otalgia 04/29/2011 NGOC COREAS MD, BARTOLOME Willis 388.70 Otalgia 04/29/2011 388.70 Otalgia 04/29/2011 NELSON DO, ROSANNA K 388.70 Otalgia 04/29/2011 388.70 Otalgia 04/29/2011 388.70 Otalgia 04/29/2011 388.70 Otalgia 04/29/2011 388.70 Otalgia 04/29/2011 388.70 Otalgia 04/29/2011 388.70 Otalgia 04/29/2011 WILY RAMIREZ MD 388.70 [...] ROSANNA K 388.70 Otalgia 04/29/2011 NELSON DO, ROSNANA K 388.70 Otalgia 04/29/2011 PACHECO WAGNER APRN A 388.70 Otalgia 04/29/2011 NELSON DO, ROSANNA K 388.70 Otalgia 04/29/2011 ONIEL HARRIS APRN 388.70 Otalgia 06/14/2011 NELSON DO, ROSANNA K 382.00 OTITIS MEDIA ACUTE SUPPURATIVE 06/14/2011 NELSON DO, ROSANNA K 382.00 OTITIS MEDIA ACUTE SUPPURATIVE 06/14/2011 382.00 OTITIS MEDIA ACUTE SUPPURATIVE 06/14/2011 382.00 OTITIS MEDIA ACUTE SUPPURATIVE 06/14/2011 JORDON ESCOBAR, NASRA 382.00 OTITIS MEDIA ACUTE SUPPURATIVE 06/14/2011 NELSON DO ROSANNA K 382.00 Otitis Media Acute Suppurative 06/14/2011 NGOC COREAS MD, BARTOLOME Willis 382.00 Otitis Media Acute Suppurative 06/14/2011 382.00 Otitis Media Acute Suppurative 06/14/2011 NELSON DOSAGEA K 382.00 Otitis Media Acute Suppurative 06/14/2011 382.00 Otitis Media Acute Suppurative 06/14/2011 382.00 Otitis Media Acute Suppurative 06/14/2011 382.00 Otitis Media Acute Suppurative 06/14/2011 382.00 Otitis Media Acute Suppurative 06/14/2011 382.00 Otitis Media Acute Suppurative 06/14/2011 382.00 Otitis Media Acute Suppurative 06/14/2011 WILY RAMIREZ MD 382.00 Otitis Media Acute Suppurative 06/14/2011 PACHECO WAGNER APRN A 382.00 Otitis Media Acute Suppurative 06/14/2011 NELSON ROSANNA JOHNSTON K 382.00 Otitis Media Acute Suppurative 06/14/2011 WILY RAMIREZ MD 382.00 Otitis Media Acute Suppurative 06/14/2011 BERNARD LEAD INGOT MOLDER, PACHECO A 382.00 Otitis Media Acute Suppurative 06/14/2011 CLIFTON LEAD INGOT MOLDER, RAFA R 382.00 Otitis Media Acute Suppurative 06/14/2011 NELSON DO, ROSANNA K 382.00 Otitis Media Acute Suppurative 06/14/2011 CARROLL LEAD INGOT MOLDER, SIMA L 382.00 Otitis Media Acute Suppurative 06/14/2011 NELSON DO, ROSANNA K 382.00 Otitis Media Acute Suppurative 06/14/2011 NELSON DO, ROSANNA K 382.00 Otitis Media Acute Suppurative 06/14/2011 NELSON DO, ROSANNA K 382.00 Otitis Media Acute Suppurative 06/14/2011 BERNARD LEAD INGOT MOLDER, PACHECO A 382.00 Otitis Media Acute Suppurative 06/14/2011 NELSON DO, ROSANNA K 382.00 Otitis Media Acute Suppurative 06/14/2011 JAKOB DDS, AUSTIN Cisneros 382.00 Otitis Media Acute Suppurative 06/14/2011 NELSON DO, ROSANNA K 382.00 Otitis Media Acute Suppurative 06/14/2011 NELSON DO, ROSANNA K 382.00 Otitis Media Acute Suppurative 06/14/2011 NELSON DO, ROSANNA K 382.00 Otitis Media Acute Suppurative 06/14/2011 BERNARD LEAD INGOT MOLDER, PACHECO A 382.00 Otitis Media Acute Suppurative 06/14/2011 NELSON DO, ROSANNA K 382.00 Otitis Media Acute Suppurative 06/14/2011 KIMBERLY LEAD INGOT MOLDER, ONIEL Massey 382.00 Otitis Media Acute Suppurative 08/18/2011 NELSON DO, ROSANNA K 616.10 VAGINITIS VULVOVAGINITIS UNSPECIFIED 08/18/2011 NELSON DO, ROSANNA K 786.52 CHEST WALL PAIN 08/18/2011 NELSON DO, ROSANNA K 616.10 VAGINITIS VULVOVAGINITIS UNSPECIFIED 08/18/2011 NELSON DO, ROSANNA K 786.52 CHEST WALL PAIN 08/18/2011 616.10 VAGINITIS VULVOVAGINITIS UNSPECIFIED 08/18/2011 786.52 CHEST WALL PAIN 08/18/2011 616.10 VAGINITIS VULVOVAGINITIS UNSPECIFIED 08/18/2011 786.52 CHEST WALL PAIN 08/18/2011 JORDON ESCOBAR, NASRA 616.10 VAGINITIS VULVOVAGINITIS UNSPECIFIED 08/18/2011 NASRA RUVALCABA MD 786.52 CHEST WALL PAIN 08/18/2011 ROSANNA NELSON DO 616.10 VAGINITIS VULVOVAGINITIS UNSPECIFIED 08/18/2011 ROSANNA NELSON DO 786.52 Chest Wall Pain 08/18/2011 NGOC CORESA MD, BARTOLOME Willis 616.10 VAGINITIS VULVOVAGINITIS UNSPECIFIED 08/18/2011 NGOC COREAS MD, BARTOLOME Willis 786.52 Chest Wall Pain 08/18/2011 616.10 VAGINITIS VULVOVAGINITIS UNSPECIFIED 08/18/2011 786.52 Chest Wall Pain 08/18/2011 ROSANNA NELSON DO 616.10 VAGINITIS VULVOVAGINITIS UNSPECIFIED 08/18/2011 ROSANNA NELSON DO 786.52 Chest Wall Pain 08/18/2011 616.10 Vaginitis [...] Chest Wall Pain 08/18/2011 PACHECO WAGNER APRN 616.10 Vaginitis Vulvovaginitis Unspecified 08/18/2011 PACHECO WAGNER APRN 786.52 Chest Wall Pain 08/18/2011 ROSANNA NELSON DO 616.10 Vaginitis Vulvovaginitis Unspecified 08/18/2011 ROSANNA NELSON DO 786.52 Chest Wall Pain 08/18/2011 PENCE MD, WILY 616.10 Vaginitis Vulvovaginitis Unspecified 08/18/2011 JAMES ESCOBAR, WILY 786.52 Chest Wall Pain 08/18/2011 BERNARD LEAD INGOT MOLDER, PACHECO A 616.10 Vaginitis Vulvovaginitis Unspecified 08/18/2011 BERNARD LEAD INGOT MOLDER, PACHECO A 786.52 Chest Wall Pain 08/18/2011 CLIFTON LEAD INGOT MOLDER, RAFA R 616.10 Vaginitis Vulvovaginitis Unspecified 08/18/2011 CLIFTON LEAD INGOT MOLDER, RAFA R 786.52 Chest Wall Pain 08/18/2011 NELSON DO, ROSANNA K 616.10 Vaginitis Vulvovaginitis Unspecified 08/18/2011 NELSON DO, ROSANNA K 786.52 Chest Wall Pain 08/18/2011 MADL LEAD INGOT MOLDER, SIMA L 616.10 Vaginitis Vulvovaginitis Unspecified 08/18/2011 MADL LEAD INGOT MOLDER, SIMA L 786.52 Chest Wall Pain 08/18/2011 NELSON DO, ROSANNA K 616.10 Vaginitis Vulvovaginitis Unspecified 08/18/2011 NELSON DO, ROSANNA K 786.52 Chest Wall Pain 08/18/2011 NELSON DO, ROSANNA K 616.10 Vaginitis Vulvovaginitis Unspecified 08/18/2011 NELSON DO, ROSANNA K 786.52 Chest Wall Pain 08/18/2011 NELSON DO, ROSANNA K 616.10 Vaginitis Vulvovaginitis Unspecified 08/18/2011 NELSON DO, ROSANNA K 786.52 Chest Wall Pain 08/18/2011 BERNARD LEAD INGOT MOLDER, PACHECO A 616.10 Vaginitis Vulvovaginitis Unspecified 08/18/2011 BERNARD LEAD INGOT MOLDER, PACHECO A 786.52 Chest Wall Pain 08/18/2011 NELSON DO, ROSANNA K 616.10 Vaginitis Vulvovaginitis Unspecified 08/18/2011 NELSON DO, ROSANNA K 786.52 Chest Wall Pain 08/18/2011 WHITE DDS, AUSTIN Cisneros 616.10 Vaginitis Vulvovaginitis Unspecified 08/18/2011 WHITE DDS, AUSTIN Cisneros 786.52 Chest Wall Pain 08/18/2011 NELSON DO, ROSANNA K 616.10 Vaginitis Vulvovaginitis Unspecified 08/18/2011 NELSON DO, ROSANNA K 786.52 Chest Wall Pain 08/18/2011 NELSON DO, ROSANNA K 616.10 Vaginitis Vulvovaginitis Unspecified 08/18/2011 NELSON DO, ROSANNA K 786.52 Chest Wall Pain 08/18/2011 NELSON DO, ROSANNA K 616.10 Vaginitis Vulvovaginitis Unspecified 08/18/2011 NELSON DO, ROSANNA K 786.52 Chest Wall Pain 08/18/2011 BERNARD LEAD INGOT MOLDER, PACHECO A 616.10 Vaginitis Vulvovaginitis Unspecified 08/18/2011 BERNARD LEAD INGOT MOLDER, PACHECO A 786.52 Chest Wall Pain 08/18/2011 NELSON DO, ROSANNA K 616.10 Vaginitis Vulvovaginitis Unspecified 08/18/2011 NELSON DO, ROSANNA K 786.52 Chest Wall Pain 08/18/2011 KIMBERLY LEAD INGOT MOLDERKIMBERLEY MillerONIEL R 616.10 Vaginitis Vulvovaginitis Unspecified 08/18/2011 KIMBERLEY HARRIS APRNRICIA R 786.52 Chest Wall Pain 12/16/2011 NELSON [...] K 268.9 VITAMIN D DEFICIENCY 12/16/2011 NELSON DO ROSANNA K 461.9 Sinusitis Acute 12/16/2011 NELSON DO ROSANNA K 599.0 Urinary Tract Infection 12/16/2011 BARTOLOME BILLY MD 268.9 VITAMIN D DEFICIENCY 12/16/2011 BARTOLOME BILLY MD A 461.9 Sinusitis Acute 12/16/2011 BARTOLOME BILLY MD A 599.0 Urinary Tract Infection 12/16/2011 268.9 VITAMIN D DEFICIENCY 12/16/2011 461.9 Sinusitis Acute 12/16/2011 599.0 Urinary Tract Infection 12/16/2011 NELSON DO, ROSANNA K 268.9 VITAMIN D DEFICIENCY 12/16/2011 NELSON DO, ROSANNA K 461.9 Sinusitis Acute 12/16/2011 NELSON DO ROSANNA K 599.0 Urinary Tract Infection 12/16/2011 [...] APRN A 268.9 VITAMIN D DEFICIENCY 12/16/2011 PACHECO WAGNER APRN 461.9 Sinusitis Acute 12/16/2011 PACHECO WAGNER APRN A 599.0 Urinary Tract Infection 12/16/2011 NELSON DO, ROSANNA K 268.9 VITAMIN D DEFICIENCY 12/16/2011 NELSON DO, ROSANNA K 461.9 Sinusitis Acute 12/16/2011 NELSON DO, ROSANNA K 599.0 Urinary Tract Infection 12/16/2011 JAMES ESCOBAR, WILY 268.9 VITAMIN D DEFICIENCY 12/16/2011 JAMES ESCOBAR, WILY 461.9 Sinusitis Acute 12/16/2011 JAMES ESCOBAR, WILY 599.0 Urinary Tract Infection 12/16/2011 BERNARD LEAD INGOT MOLDER, PACHECO A 268.9 VITAMIN D DEFICIENCY 12/16/2011 BERNARD LEAD INGOT MOLDER, PACHECO A 461.9 Sinusitis Acute 12/16/2011 BERNARD LEAD INGOT MOLDER, PACHECO A 599.0 Urinary Tract Infection 12/16/2011 CLIFTON LEAD INGOT MOLDER, RAFA R 268.9 VITAMIN D DEFICIENCY 12/16/2011 CLIFTON LEAD INGOT MOLDER, RAFA R 461.9 Sinusitis Acute 12/16/2011 CLIFTON LEAD INGOT MOLDER, RAFA R 599.0 Urinary Tract Infection 12/16/2011 NELSON DO, ROSANNA K 268.9 VITAMIN D DEFICIENCY 12/16/2011 NELSON DO, ROSANNA K 461.9 Sinusitis Acute 12/16/2011 NELSON DO, ROSANNA K 599.0 Urinary Tract Infection 12/16/2011 MADL LEAD INGOT MOLDER, SIMA L 268.9 VITAMIN D DEFICIENCY 12/16/2011 MADL LEAD INGOT MOLDER, SIMA L 461.9 Sinusitis Acute 12/16/2011 MADL LEAD INGOT MOLDER, SIMA L 599.0 Urinary Tract Infection 12/16/2011 [...] K 599.0 Urinary Tract Infection 12/16/2011 BERNARD LEAD INGOT MOLDER, PACHECO A 268.9 VITAMIN D DEFICIENCY 12/16/2011 BERNARD LEAD INGOT MOLDER, PACHECO A 461.9 Sinusitis Acute 12/16/2011 BERNARD LEAD INGOT MOLDER, PACHECO A 599.0 Urinary Tract Infection 12/16/2011 [...] K 599.0 Urinary Tract Infection 12/16/2011 BERNARD LEAD INGOT MOLDER, PACHECO A 268.9 VITAMIN D DEFICIENCY 12/16/2011 BERNARD LEAD INGOT MOLDER, PACHECO A 461.9 Sinusitis Acute 12/16/2011 BERNARD LEAD INGOT MOLDER, PACHECO A 599.0 Urinary Tract Infection 12/16/2011 NELSON DO, ROSANNA K 268.9 VITAMIN D DEFICIENCY 12/16/2011 NELSON DO, ROSANNA K 461.9 Sinusitis Acute 12/16/2011 NELSON DO, ROSANNA K 599.0 Urinary Tract Infection 12/16/2011 KIMBERLY ANDREWSNKIMBERLEYONIEL R 268.9 VITAMIN D DEFICIENCY 12/16/2011 KIMBERLY ANDREWSN ONIEL R 461.9 Sinusitis Acute 12/16/2011 KIMBERLY ANDREWSN ONIEL R 599.0 Urinary Tract Infection 02/29/2012 NELSON DO, ROSANNA K 008.8 GASTROENTERITIS, VIRAL 02/29/2012 NELSON DO ROSANNA K 787.02 NAUSEA ALONE 02/29/2012 NELSON DO ROSANNA K 787.91 DIARRHEA 02/29/2012 NELSON DO ROSANNA K 008.8 GASTROENTERITIS, VIRAL 02/29/2012 NELSON DO ROSANNA K 787.02 NAUSEA ALONE 02/29/2012 NELSON DO ROSANNA K 787.91 DIARRHEA 02/29/2012 008.8 GASTROENTERITIS, VIRAL 02/29/2012 787.02 NAUSEA ALONE 02/29/2012 787.91 DIARRHEA 02/29/2012 008.8 GASTROENTERITIS, VIRAL 02/29/2012 787.02 NAUSEA ALONE 02/29/2012 787.91 DIARRHEA 02/29/2012 NASRA RUVALCABA MD 008.8 GASTROENTERITIS, VIRAL 02/29/2012 NASRA RUVALCABA MD 787.02 NAUSEA ALONE 02/29/2012 NASRA RUVALCABA MD 787.91 DIARRHEA 02/29/2012 NELSON ROSANNA JOHNSTON 008.8 Gastroenteritis, Viral 02/29/2012 NELSON SAGE JOHNSTONA K 787.02 Nausea Alone 02/29/2012 NELSON DO ROSANNA K 787.91 Diarrhea 02/29/2012 NGOC COREAS MD, BARTOLOME A 008.8 Gastroenteritis, Viral 02/29/2012 NGOC COREAS MD, BARTOLOME A 787.02 Nausea Alone 02/29/2012 NGOC COREAS MD, BARTOLOME A 787.91 Diarrhea 02/29/2012 008.8 Gastroenteritis, Viral 02/29/2012 787.02 Nausea Alone 02/29/2012 787.91 Diarrhea 02/29/2012 NELSON SAGE JOHNSTONA K 008.8 Gastroenteritis, Viral 02/29/2012 NELSON DO [...] 787.02 Nausea Alone 02/29/2012 787.91 Diarrhea 02/29/2012 JAMES ESCOBAR, WILY 008.8 Gastroenteritis, Viral 02/29/2012 JAMES ESCOBAR, WILY 787.02 Nausea Alone 02/29/2012 JAMES ESCOBAR, WILY 787.91 Diarrhea 02/29/2012 PACHECO WAGNER APRN A 008.8 Gastroenteritis, Viral 02/29/2012 AMIRAH WAGNER APRNIDI A 787.02 Nausea Alone 02/29/2012 AMIRAH WAGNER APRNIDI A 787.91 Diarrhea 02/29/2012 NELSON DO ROSANNA K 008.8 Gastroenteritis, Viral 02/29/2012 NELSON DO ROSANNA K 787.02 Nausea Alone 02/29/2012 NELSON DO, ROSANNA K 787.91 Diarrhea 02/29/2012 WILY RAMIREZ MD 008.8 Gastroenteritis, Viral 02/29/2012 WILY RAMIREZ MD 787.02 Nausea Alone 02/29/2012 JAMES ESCOBAR, WILY 787.91 Diarrhea 02/29/2012 PACHECO WAGNER APRN A 008.8 Gastroenteritis, Viral 02/29/2012 BERNARD CORRIGAN PACHECO A 787.02 Nausea Alone 02/29/2012 AMIRAH WAGNER APRNIDI A 787.91 Diarrhea 02/29/2012 CLIFTON CORRIGAN RAFA R 008.8 Gastroenteritis, Viral 02/29/2012 CLIFTON CORRIGAN RAFA R 787.02 Nausea Alone 02/29/2012 CLIFTON CORRIGAN RAFA R 787.91 Diarrhea 02/29/2012 NELSON DO ROSANNA K 008.8 Gastroenteritis, Viral 02/29/2012 NELSON DO, ROSANNA K 787.02 Nausea Alone 02/29/2012 NELSON DO, ROSANNA K 787.91 Diarrhea 02/29/2012 SIMA HODGES APRN L 008.8 Gastroenteritis, Viral 02/29/2012 CARL HODGES APRNWNYA L 787.02 Nausea Alone 02/29/2012 CARL HODGES APRNWNYA L 787.91 Diarrhea 02/29/2012 NELSON DO, ROSANNA [...] DO, ROSANNA K 787.02 Nausea Alone 02/29/2012 NLESON DO, ROSANNA K 787.91 Diarrhea 02/29/2012 BERNARD LEAD INGOT MOLDER PACHECO A 008.8 Gastroenteritis, Viral 02/29/2012 BERNARD LEAD INGOT MOLDER, PACHECO A 787.02 Nausea Alone 02/29/2012 BERNARD LEAD INGOT MOLDER, PACHECO A 787.91 Diarrhea 02/29/2012 NELSON DO, [...] DO, ROSANNA K 787.91 Diarrhea 02/29/2012 BERNARD LEAD INGOT MOLDER, PACHECO A 008.8 Gastroenteritis, Viral 02/29/2012 BERNARD LEAD INGOT MOLDER, PACHECO A 787.02 Nausea Alone 02/29/2012 BERNARD LEAD INGOT MOLDER, PACHECO A 787.91 Diarrhea 02/29/2012 NELSON SAGEA K 008.8 Gastroenteritis, Viral 02/29/2012 NELSON DO, ROSANNA K 787.02 Nausea Alone 02/29/2012 NELSON DO ROSANNA K 787.91 Diarrhea 02/29/2012 KIMBERLY ANDREWSAngela ONIEL R 008.8 Gastroenteritis, Viral 02/29/2012 KIMBERLY ANDREWSN, ONIEL R 787.02 Nausea Alone 02/29/2012 KIMBERLY ANDREWSN, ONIEL R 787.91 Diarrhea 05/07/2012 V73.81 HPV SCREENING 05/07/2012 V74.5 STD SCREEN 05/07/2012 V76.2 CERVICAL CANCER SCREENING (PAP SMEAR) 05/07/2012 V76.41 SCREENING FOR MALIGNANT NEOPLASMS OF THE RECTUM 05/07/2012 NASRA RUVALCABA MD V73.81 HPV SCREENING 05/07/2012 NASRA RUVALCABA MD V74.5 STD SCREEN 05/07/2012 NASRA RUVALCABA MD V76.2 CERVICAL CANCER SCREENING (PAP SMEAR) 05/07/2012 NASRA RUVALCABA MD V76.41 SCREENING FOR MALIGNANT NEOPLASMS OF THE RECTUM 05/07/2012 ROSANNA NELSON DO V73.81 Hpv Screening 05/07/2012 ROSANNA NELSON DO K V74.5 Std Screen 05/07/2012 ROSANNA NELSON [...] PACHECO WAGNER APRN V73.81 Hpv Screening 05/07/2012 BERNARD LEAD INGOT MOLDER, PACHECO A V74.5 Std Screen 05/07/2012 BERNARDAngela CORRIGAN PACHECO A V76.2 Cervical Cancer Screening (pap Smear) 05/07/2012 BERNARDAngela CORRIGAN PACHECO A V76.41 Screening For Malignant Neoplasms Of The Rectum 05/07/2012 NELSON DO ROSANNA K V73.81 Hpv Screening 05/07/2012 NELSON DO, ROSANNA K V74.5 Std Screen 05/07/2012 NELSNO DO, ROSANNA K V76.2 Cervical Cancer Screening (pap Smear) 05/07/2012 LESLIE JOHNSTON, ROSANNA K V76.41 Screening For Malignant Neoplasms Of The Rectum 05/07/2012 WILY RAMIREZ MD V73.81 Hpv Screening 05/07/2012 JAMES ESCOBAR, WILY V74.5 Std Screen 05/07/2012 WILY RAMIREZ MD V76.2 Cervical Cancer Screening (pap Smear) 05/07/2012 WILY RAMIREZ MD V76.41 Screening For Malignant Neoplasms Of The Rectum 05/07/2012 AMIRAH WAGNER APRNIDI A V73.81 Hpv Screening 05/07/2012 BERNARDAngela CORRIGAN PACHECO A V74.5 Std Screen 05/07/2012 BERNARDAngela CORRIGAN PACHECO A V76.2 Cervical Cancer Screening (pap Smear) 05/07/2012 BERNARD CORRIGAN PACHECO A V76.41 Screening For Malignant Neoplasms Of The Rectum 05/07/2012 CLIFTON CORRIGAN, RAFA R V73.81 Hpv Screening 05/07/2012 CLIFTON CORRIGAN, RAFA R V74.5 Std Screen 05/07/2012 CLIFTON CORRIGAN, RAFA R V76.2 Cervical Cancer Screening (pap Smear) 05/07/2012 CLIFTON CORRIGAN RAFA R V76.41 Screening For Malignant Neoplasms Of The Rectum 05/07/2012 NELSON DO ROSANNA K V73.81 Hpv Screening 05/07/2012 LESLIE JOHNSTON ROSANNA K V74.5 Std Screen 05/07/2012 NELSON DO ROSANNA K V76.2 Cervical Cancer Screening (pap Smear) 05/07/2012 LESLIE JOHNSTON ROSANNA K V76.41 Screening For Malignant Neoplasms Of The Rectum 05/07/2012 SIMA HODGES APRN V73.81 Hpv Screening 05/07/2012 MADL LEAD INGOT MOLDER, SIMA L V74.5 Std Screen 05/07/2012 MADL LEAD INGOT MOLDER, SIMA L V76.2 Cervical Cancer Screening (pap Smear) 05/07/2012 MADL LEAD INGOT MOLDER, SIMA L V76.41 Screening For Malignant Neoplasms [...] Malignant Neoplasms Of The Rectum 05/07/2012 BERNARD LEAD INGOT MOLDER, PACHECO A V73.81 Hpv Screening 05/07/2012 BERNARD LEAD INGOT MOLDER, PACHECO A V74.5 Std Screen 05/07/2012 BERNARD LEAD INGOT MOLDER, PACHECO A V76.2 Cervical Cancer Screening (pap Smear) 05/07/2012 BERNARD LEAD INGOT MOLDER, PACHECO A V76.41 Screening For Malignant Neoplasms Of The Rectum 05/07/2012 NELSON DO, ROSANNA K V73.81 Hpv Screening 05/07/2012 NELSON DO, ROSANNA K V74.5 Std Screen 05/07/2012 NELSON DO, ROSANNA K V76.2 Cervical Cancer Screening (pap Smear) 05/07/2012 NELSON DO, ROSANNA K V76.41 Screening For Malignant Neoplasms Of The Rectum 05/07/2012 WHITE DDS, AUSTIN Cisneros V73.81 Hpv Screening 05/07/2012 WHITE DDS, AUSTIN Cisneros V74.5 Std Screen 05/07/2012 WHITE DDS, AUSTIN D V76.2 Cervical Cancer Screening (pap Smear) 05/07/2012 WHITE DDS, AUSTIN Cisneros V76.41 Screening For Malignant Neoplasms Of The [...] For Malignant Neoplasms Of The Rectum 05/07/2012 AMIRAH WAGNER APRNIDI A V73.81 Hpv Screening 05/07/2012 BERNARD CORRIGAN PACHECO A V74.5 Std Screen 05/07/2012 BERNARD CORRIGAN PACHECO A V76.2 Cervical Cancer Screening (pap Smear) 05/07/2012 BERNARD CORRIGAN PACHECO A V76.41 Screening For Malignant Neoplasms Of The Rectum 05/07/2012 NELSON DO, ROSANNA K V73.81 Hpv Screening 05/07/2012 NELSON DO, ROSANNA K V74.5 Std Screen 05/07/2012 NELSON DO, ROSANNA K V76.2 Cervical Cancer Screening (pap Smear) 05/07/2012 NELSON DO, ROSANNA K V76.41 Screening For Malignant Neoplasms Of The Rectum 05/07/2012 CYNTHIA HARRIS APRNIA R V73.81 Hpv Screening 05/07/2012 KIMBERLEY HARRIS APRNRICIA R V74.5 Std Screen 05/07/2012 KIMBERLEY HARRIS APRNRICIA R V76.2 Cervical Cancer Screening (pap Smear) 05/07/2012 ONIEL HARRIS APRN V76.41 Screening For Malignant Neoplasms Of The Rectum 05/09/2012 JORDON ESCOBAR, NASRA 786.59 ATYPICAL CHEST PAIN 05/09/2012 NELSON DO, ROSANNA K 786.59 ATYPICAL CHEST PAIN 05/09/2012 NGOC COREAS MD, BARTOLOME A 786.59 ATYPICAL CHEST PAIN 05/09/2012 786.59 ATYPICAL CHEST PAIN 05/09/2012 NELSON DO, ROSANNA K 786.59 ATYPICAL CHEST PAIN 05/09/2012 786.59 Atypical Chest Pain 05/09/2012 786.59 Atypical Chest Pain 05/09/2012 786.59 Atypical Chest Pain 05/09/2012 786.59 Atypical Chest Pain 05/09/2012 786.59 Atypical Chest Pain 05/09/2012 786.59 Atypical Chest Pain 05/09/2012 WILY RAMIREZ MD 786.59 Atypical Chest Pain 05/09/2012 AMIRAH WAGNER APRNIDI A 786.59 Atypical Chest Pain 05/09/2012 NELSON DO, ROSANNA K 786.59 Atypical Chest Pain 05/09/2012 WILY RAMIREZ MD 786.59 Atypical Chest Pain 05/09/2012 BERNARD CORRIGAN PACHECO A 786.59 Atypical Chest Pain 05/09/2012 RAFA LAZO APRN 786.59 Atypical Chest Pain 05/09/2012 NELSON DO, ROSANNA K 786.59 Atypical Chest Pain 05/09/2012 SIMA HODGES APRN 786.59 Atypical Chest Pain 05/09/2012 NELSON DO, ROSANNA K 786.59 Atypical Chest Pain 05/09/2012 NELSON DO, ROSANNA K 786.59 Atypical Chest Pain 05/09/2012 NELSON DO, ROSANNA K 786.59 Atypical Chest Pain 05/09/2012 BERNARD CORRIGAN PACHECO A 786.59 Atypical Chest Pain 05/09/2012 NELSON DO, ROSANNA K 786.59 Atypical Chest Pain 05/09/2012 AUSTIN ROBERT DDS 786.59 Atypical Chest Pain 05/09/2012 NELSON DO, ROSANNA K 786.59 Atypical Chest Pain 05/09/2012 NELSON DO, ROSANNA K 786.59 Atypical Chest Pain 05/09/2012 NELSON DO, ROSANNA K 786.59 Atypical Chest Pain 05/09/2012 BERNARD LEAD INGOT MOLDER, PACHECO A 786.59 Atypical Chest Pain 05/09/2012 NELSON DO, ROSANNA K 786.59 Atypical Chest Pain 05/09/2012 ONIEL HARRIS APRN 786.59 Atypical Chest Pain 06/07/2012 NGOC COREAS MD, BARTOLOME A 795.03 ABNORMAL PAP - LGSIL 06/07/2012 795.03 [...] K 795.03 ABNORMAL PAP - LGSIL 06/07/2012 ROSANNA NELSON DO 795.03 ABNORMAL PAP - LGSIL 06/07/2012 ROSANNA NELSON DO K 795.03 ABNORMAL PAP - LGSIL 06/07/2012 PACHECO WAGNER APRN A 795.03 ABNORMAL PAP - LGSIL 06/07/2012 NELSON ROSANNA JOHNSTON K 795.03 ABNORMAL PAP - LGSIL 06/07/2012 [...] URINARY TRACT INFECTION 07/26/2012 PACHECO WAGNER APRN 719.46 PAIN IN JOINT INVOLVING LOWER LEG 07/26/2012 ROSANNA NELSON DO K 599.0 URINARY TRACT INFECTION 07/26/2012 ROSANNA NELSON DO 719.46 PAIN IN JOINT INVOLVING LOWER LEG 07/26/2012 WILY RAMIREZ MD 599.0 URINARY TRACT INFECTION 07/26/2012 WILY RAMIREZ MD 719.46 PAIN IN JOINT INVOLVING LOWER LEG 07/26/2012 PACHECO WAGNER APRN A 599.0 URINARY TRACT INFECTION 07/26/2012 PACHECO WAGNER APRN 719.46 PAIN IN JOINT INVOLVING LOWER LEG 07/26/2012 RAFA LAZO APRN R 599.0 URINARY TRACT INFECTION 07/26/2012 RAFA LAZO APRN 719.46 PAIN IN JOINT INVOLVING LOWER LEG 07/26/2012 NELSON DO, ROSANNA K 599.0 URINARY TRACT INFECTION 07/26/2012 NELSON DO, ROSANNA K 719.46 PAIN IN JOINT INVOLVING LOWER LEG 07/26/2012 MADL LEAD INGOT MOLDER, SIMA L 599.0 URINARY TRACT INFECTION 07/26/2012 MADL LEAD INGOT MOLDER, SIMA L 719.46 PAIN IN JOINT INVOLVING LOWER [...] PAIN IN JOINT INVOLVING LOWER LEG 07/26/2012 BERNARD CORRIGAN PACHECO A 599.0 URINARY TRACT INFECTION 07/26/2012 BERNARD ANDREWSN PACHECO A 719.46 PAIN IN JOINT INVOLVING LOWER [...] PAIN IN JOINT INVOLVING LOWER LEG 07/26/2012 BERNARD ANDREWSN, PACHECO A 599.0 URINARY TRACT INFECTION 07/26/2012 AMIRAH WAGNER APRNIDI A 719.46 PAIN IN JOINT INVOLVING LOWER LEG 07/26/2012 ROSANNA NELSON DO K 599.0 URINARY TRACT INFECTION 07/26/2012 ROSANNA NELSON DO K 719.46 PAIN IN JOINT INVOLVING LOWER [...] URINARY (TRACT) INFECTION 08/14/2012 PACHECO WAGNER APRN V01.9 EXPOSURE TO HEPATITIS C 08/14/2012 PACHECO WAGNER APRN V13.02 PERSONAL HISTORY OF URINARY (TRACT) INFECTION 08/14/2012 ROSANNA NELSON DO K V01.9 EXPOSURE TO HEPATITIS C 08/14/2012 ROSANNA NELSON DO V13.02 PERSONAL HISTORY OF URINARY (TRACT) INFECTION 08/14/2012 WILY RAMIREZ MD V01.9 EXPOSURE TO HEPATITIS C 08/14/2012 WILY RAMIREZ MD V13.02 PERSONAL HISTORY OF URINARY (TRACT) INFECTION 08/14/2012 PACHECO WAGNER APRN V01.9 EXPOSURE TO HEPATITIS C 08/14/2012 PACHECO WAGNER APRN V13.02 PERSONAL HISTORY OF URINARY (TRACT) INFECTION 08/14/2012 RAFA LAZO APRN R V01.9 EXPOSURE TO HEPATITIS C 08/14/2012 RAFA LAZO APRN V13.02 PERSONAL HISTORY OF URINARY (TRACT) INFECTION 08/14/2012 NELSON DO, ROSANNA K V01.9 EXPOSURE TO HEPATITIS C 08/14/2012 NELSON DO, ROSANNA K V13.02 PERSONAL HISTORY OF URINARY (TRACT) INFECTION 08/14/2012 MADL LEAD INGOT MOLDER, SIMA L V01.9 EXPOSURE TO HEPATITIS C 08/14/2012 MADL LEAD INGOT MOLDER, SIMA L V13.02 PERSONAL HISTORY OF URINARY [...] HISTORY OF URINARY (TRACT) INFECTION 08/14/2012 BERNARD LEAD INGOT MOLDER, PACHECO A V01.9 EXPOSURE TO HEPATITIS C 08/14/2012 BERNARD LEAD INGOT MOLDER, PACHECO A V13.02 PERSONAL HISTORY OF URINARY [...] HISTORY OF URINARY (TRACT) INFECTION 08/14/2012 BERNARD LEAD INGOT MOLDER, PACHECO A V01.9 EXPOSURE TO HEPATITIS C 08/14/2012 PACHECO WAGNER APRN A V13.02 PERSONAL HISTORY OF URINARY (TRACT) INFECTION 08/14/2012 NELSON DO, ROSANNA K V01.9 EXPOSURE TO HEPATITIS C 08/14/2012 NELSON DO, ROSANNA K V13.02 PERSONAL HISTORY OF URINARY (TRACT) INFECTION 08/14/2012 ONIEL HARRIS APRN R V01.9 EXPOSURE TO HEPATITIS C 08/14/2012 ONIEL HARRIS APRN R V13.02 PERSONAL HISTORY OF URINARY (TRACT) INFECTION 08/20/2012 692.9 DERMATITIS 08/20/2012 692.9 DERMATITIS 08/20/2012 692.9 DERMATITIS 08/20/2012 692.9 DERMATITIS 08/20/2012 WILY RAMIREZ MD 692.9 DERMATITIS 08/20/2012 PACHECO WAGNER APRN A 692.9 DERMATITIS 08/20/2012 NELSON DO, ROSANNA K 692.9 DERMATITIS 08/20/2012 WILY RAMIREZ MD 692.9 DERMATITIS 08/20/2012 PACHECO WAGNER APRN A 692.9 DERMATITIS 08/20/2012 RAFA LAZO APRN 692.9 DERMATITIS 08/20/2012 NELSON DO, ROSANNA K 692.9 DERMATITIS 08/20/2012 SIMA HODGES APRN 692.9 DERMATITIS 08/20/2012 NELSON DO, ROSANNA K 692.9 DERMATITIS 08/20/2012 NELSON DO, ROSANNA K 692.9 DERMATITIS 08/20/2012 NELSON DO, ROSANNA K 692.9 DERMATITIS 08/20/2012 PACHECO WAGNER APRN A 692.9 DERMATITIS 08/20/2012 NELSON DO, ROSANNA K 692.9 DERMATITIS 08/20/2012 WHITE DDS, AUSTIN D 692.9 DERMATITIS 08/20/2012 NELSON DO, ROSANNA K 692.9 DERMATITIS 08/20/2012 NELSON DO, ROSANNA K 692.9 DERMATITIS 08/20/2012 NELSON DO, ROSANNA K 692.9 DERMATITIS 08/20/2012 BERNARD CORRIGAN PACHECO A 692.9 DERMATITIS 08/20/2012 NELSON DO, [...] APRN A 112.0 CANDIDIASIS OF MOUTH 08/28/2012 RAFA LAZO APRN R 112.0 CANDIDIASIS OF MOUTH 08/28/2012 NELSON DO, ROSANNA K 112.0 CANDIDIASIS OF MOUTH 08/28/2012 SIMA HODGES APRN 112.0 CANDIDIASIS OF MOUTH 08/28/2012 NELSON DO, ROSANNA K 112.0 CANDIDIASIS OF MOUTH 08/28/2012 NELSON DO, ROSANNA K 112.0 CANDIDIASIS OF MOUTH 08/28/2012 NELSON DO, ROSANNA K 112.0 CANDIDIASIS OF MOUTH 08/28/2012 PACHECO WAGNER APRN A 112.0 CANDIDIASIS OF MOUTH 08/28/2012 NELSON DO, ROSANNA K 112.0 CANDIDIASIS OF MOUTH 08/28/2012 JAKOB DDS, AUSTIN Cisneros 112.0 CANDIDIASIS OF MOUTH 08/28/2012 NELSON DO, ROSANNA K 112.0 CANDIDIASIS OF MOUTH 08/28/2012 NELSON DO, ROSANNA K 112.0 CANDIDIASIS OF MOUTH 08/28/2012 NELSON DO, ROSANNA K 112.0 CANDIDIASIS OF MOUTH 08/28/2012 PACHECO WAGNER APRN A 112.0 CANDIDIASIS OF MOUTH 08/28/2012 NELSON DO, ROSANNA K 112.0 CANDIDIASIS OF MOUTH 08/28/2012 ONIEL HARRIS APRN 112.0 CANDIDIASIS OF MOUTH 09/17/2012 DARIUS ESCOBAR, OBDULIA Christian Ot 719.41 JOINT PAIN-SHLDER 09/17/2012 OBDULIA MCCOY MD Ot 786.52 PAINFUL RESPIRATION 11/12/2012 788.41 URINARY FREQUENCY 11/12/2012 WILY RAMIREZ MD 788.41 URINARY FREQUENCY 11/12/2012 PACHECO WAGNER APRN 788.41 URINARY FREQUENCY 11/12/2012 NELSON DO, ROSANNA K 788.41 URINARY FREQUENCY 11/12/2012 WILY RAMIREZ MD 788.41 URINARY FREQUENCY 11/12/2012 BERNARD LEAD INGOT MOLDER, PACHECO A 788.41 URINARY FREQUENCY 11/12/2012 CLIFTON LEAD INGOT MOLDER, RFAA R 788.41 URINARY FREQUENCY 11/12/2012 NELSON DO, ROSANNA K 788.41 URINARY FREQUENCY 11/12/2012 MADL LEAD INGOT MOLDER, SIMA L 788.41 URINARY FREQUENCY 11/12/2012 NELSON DO, ROSANNA K 788.41 URINARY FREQUENCY 11/12/2012 NELSON DO, ROSANNA K 788.41 URINARY FREQUENCY 11/12/2012 NELSON DO, ROSANNA K 788.41 URINARY FREQUENCY 11/12/2012 BERNARD LEAD INGOT MOLDER, PACHECO A 788.41 URINARY FREQUENCY 11/12/2012 NELSON DO, ROSANNA K 788.41 URINARY FREQUENCY 11/12/2012 WHITE DDS, AUSTIN D 788.41 URINARY FREQUENCY 11/12/2012 NELSON DO, ROSANNA K 788.41 URINARY FREQUENCY 11/12/2012 NELSON DO, ROSANNA K 788.41 URINARY FREQUENCY 11/12/2012 NELSON DO, ROSANNA K 788.41 URINARY FREQUENCY 11/12/2012 BERNARD LEAD INGOT MOLDER, PACHECO A 788.41 URINARY FREQUENCY 11/12/2012 NELSON DO, ROSANNA K 788.41 URINARY FREQUENCY 11/12/2012 HARRIS LEAD INGOT MOLDER, ONIEL R 788.41 URINARY FREQUENCY 11/24/2012 WILY RAMIREZ MD 477.0 ALLERGIC RHINITIS DUE TO POLLEN 11/24/2012 BERNARD LEAD INGOT MOLDER, PACHECO A 477.0 ALLERGIC RHINITIS DUE TO POLLEN 11/24/2012 NELSON DO, ROSANNA K 477.0 ALLERGIC RHINITIS DUE TO POLLEN 11/24/2012 WILY RAMIREZ MD 477.0 ALLERGIC RHINITIS DUE TO POLLEN 11/24/2012 BERNARD LEAD INGOT MOLDER, PACHECO A 477.0 ALLERGIC RHINITIS DUE TO POLLEN 11/24/2012 CLIFTON LEAD INGOT MOLDER, RAFA R 477.0 ALLERGIC RHINITIS DUE TO POLLEN 11/24/2012 NELSON DO, ROSANNA K 477.0 ALLERGIC RHINITIS DUE TO POLLEN 11/24/2012 MADL LEAD INGOT MOLDER, SIMA L 477.0 ALLERGIC RHINITIS DUE TO POLLEN 11/24/2012 NELSON DO, ROSANNA K 477.0 ALLERGIC RHINITIS DUE TO POLLEN 11/24/2012 NELSON DO, ROSANNA K 477.0 ALLERGIC RHINITIS DUE TO POLLEN 11/24/2012 NELSON DO, ROSANNA K 477.0 ALLERGIC RHINITIS DUE TO POLLEN 11/24/2012 BERNARD LEAD INGOT MOLDER, PACHECO A 477.0 ALLERGIC RHINITIS DUE TO [...] ALLERGIC RHINITIS DUE TO POLLEN 11/24/2012 BERNARD LEAD INGOT MOLDER, PACHECO A 477.0 ALLERGIC RHINITIS DUE TO POLLEN 11/24/2012 NELSON DO, ROSANNA K 477.0 ALLERGIC RHINITIS DUE TO POLLEN 11/24/2012 HARRIS LEAD INGOT MOLDER, ONIEL R 477.0 ALLERGIC RHINITIS DUE TO POLLEN 04/18/2013 BERNARD LEAD INGOT MOLDER, PACHECO A V74.5 STD SCREEN 04/18/2013 CLIFTON LEAD INGOT MOLDER, RAFA R V74.5 STD SCREEN 04/18/2013 NELSON DO, ROSANNA K V74.5 STD SCREEN 04/18/2013 MADFinn LEAD INGOT MOLDER, SIMA L V74.5 STD SCREEN 04/18/2013 NELSON DO, ROSANNA K V74.5 STD SCREEN 04/18/2013 NELSON DO, ROSANNA K V74.5 STD SCREEN 04/18/2013 NELSON DO, ROSANNA K V74.5 STD SCREEN 04/18/2013 BERNARD LEAD INGOT MOLDER, PACHECO A V74.5 STD SCREEN 04/18/2013 NELSON DO, ROSANNA K V74.5 STD SCREEN 04/18/2013 WHITE DDS, AUSTIN D V74.5 STD SCREEN 04/18/2013 NELSON DO, ROSANNA K V74.5 STD SCREEN 04/18/2013 NELSON DO, ROSANNA K V74.5 STD SCREEN 04/18/2013 NELSON DO, ROSANNA K V74.5 STD SCREEN 04/18/2013 BERNARD LEAD INGOT MOLDER, PACHECO A V74.5 STD SCREEN 04/18/2013 NELSON DO, ROSANNA K V74.5 STD SCREEN 04/18/2013 HARRIS LEAD INGOT MOLDER, ONIEL R V74.5 STD SCREEN 07/11/2013 CLIFTON LEAD INGOT MOLDER, RAFA R 461.9 SINUSITIS ACUTE 07/11/2013 CLIFTON LEAD INGOT MOLDER, RAFA R 780.4 DIZZINESS AND GIDDINESS 07/11/2013 NELSON DO, ROSANNA K 461.9 SINUSITIS ACUTE 07/11/2013 NELSON DO, ROSANNA K 780.4 DIZZINESS AND GIDDINESS 07/11/2013 MADL LEAD INGOT MOLDER, SIMA L 461.9 SINUSITIS ACUTE 07/11/2013 MADL LEAD INGOT MOLDER, SIMA L 780.4 DIZZINESS AND GIDDINESS 07/11/2013 NELSON DO, ROSANNA K 461.9 SINUSITIS ACUTE 07/11/2013 NELSON DO, ROSANNA K 780.4 DIZZINESS AND GIDDINESS 07/11/2013 NELSON DO, ROSANNA K 461.9 SINUSITIS ACUTE 07/11/2013 NELSON DO, ROSANNA K 780.4 DIZZINESS AND GIDDINESS 07/11/2013 NELSON DO, ROSANNA K 461.9 SINUSITIS ACUTE 07/11/2013 NELSON DO, ROSANNA K 780.4 DIZZINESS AND GIDDINESS 07/11/2013 BERNARD LEAD INGOT MOLDER, PACHECO A 461.9 SINUSITIS ACUTE 07/11/2013 BERNARD LEAD INGOT MOLDER, PACHECO A 780.4 DIZZINESS AND GIDDINESS 07/11/2013 [...] K 780.4 DIZZINESS AND GIDDINESS 07/11/2013 BERNARD LEAD INGOT MOLDER, PACHECO A 461.9 SINUSITIS ACUTE 07/11/2013 BERNARD LEAD INGOT MOLDER, PACHECO A 780.4 DIZZINESS AND GIDDINESS 07/11/2013 NELSON DO, ROSANNA K 461.9 SINUSITIS ACUTE 07/11/2013 NELSON DO, ROSANNA K 780.4 DIZZINESS AND GIDDINESS 07/11/2013 ONIEL HARRIS APRN R 461.9 SINUSITIS ACUTE 07/11/2013 ONIEL HARRIS APRN R 780.4 DIZZINESS AND GIDDINESS 08/12/2013 NELSON DO, ROSANNA K V65.3 DIETARY SURVEILLANCE AND COUNSELING 08/12/2013 SIMA HODGES APRN L V65.3 DIETARY SURVEILLANCE AND COUNSELING 08/12/2013 NELSON DO, ROSANNA K V65.3 DIETARY SURVEILLANCE AND COUNSELING 08/12/2013 NELSON DO, ROSANNA K V65.3 DIETARY SURVEILLANCE AND COUNSELING 08/12/2013 NELSON DO, ROSANNA K V65.3 DIETARY SURVEILLANCE AND COUNSELING 08/12/2013 PACHECO WAGNER APRN V65.3 DIETARY SURVEILLANCE AND COUNSELING 08/12/2013 NELSON DO, ROSANNA K V65.3 DIETARY SURVEILLANCE AND COUNSELING 08/12/2013 AUSTIN ROBERT DDS V65.3 DIETARY SURVEILLANCE AND COUNSELING 08/12/2013 NELSON DO, ROSANNA K V65.3 DIETARY SURVEILLANCE AND COUNSELING 08/12/2013 NELSON DO, ROSANNA K V65.3 DIETARY SURVEILLANCE AND COUNSELING 08/12/2013 NELSON DO, ROSANNA K V65.3 DIETARY SURVEILLANCE AND COUNSELING 08/12/2013 PACHECO WAGNER APRN V65.3 DIETARY SURVEILLANCE AND COUNSELING 08/12/2013 NELSON DO, ROSANNA K V65.3 DIETARY SURVEILLANCE AND COUNSELING 08/12/2013 ONIEL HARRIS APRN R V65.3 DIETARY SURVEILLANCE AND COUNSELING 08/16/2013 SIMA HODGES APRN L 381.01 ACUTE SEROUS OTITIS MEDIA 08/16/2013 NELSON DO, ROSANNA K 381.01 ACUTE SEROUS OTITIS MEDIA 08/16/2013 NELSON DO, ROSANNA K 381.01 ACUTE SEROUS OTITIS MEDIA 08/16/2013 NELSON DO, ROSANNA K 381.01 ACUTE SEROUS OTITIS MEDIA 08/16/2013 PACHECO WAGNER APRN 381.01 ACUTE SEROUS OTITIS MEDIA 08/16/2013 NELSON DO, ROSANNA K 381.01 ACUTE SEROUS OTITIS MEDIA 08/16/2013 AUSTIN ROBERT DDS 381.01 ACUTE SEROUS OTITIS MEDIA 08/16/2013 NELSON DO, ROSANNA K 381.01 ACUTE SEROUS OTITIS MEDIA 08/16/2013 NELSON DO, ROSANNA K 381.01 ACUTE SEROUS OTITIS MEDIA 08/16/2013 NELSON DO, ROSANNA K 381.01 ACUTE SEROUS OTITIS MEDIA 08/16/2013 BERNARD ANDREWSN PACHECO A 381.01 ACUTE SEROUS OTITIS MEDIA 08/16/2013 NELSON DO, ROSANNA K 381.01 ACUTE SEROUS OTITIS MEDIA 08/16/2013 ONIEL HARRIS APRN 381.01 ACUTE SEROUS OTITIS MEDIA 08/26/2013 NELSON DO, ROSANNA K 112.0 CANDIDIASIS OF MOUTH 08/26/2013 NELSON DO, ROSANNA K 112.1 CANDIDIASIS OF VULVA AND VAGINA 08/26/2013 NELSON DO, ROSANNA K 112.0 CANDIDIASIS OF MOUTH 08/26/2013 NELSON DO, ROSANNA K 112.1 CANDIDIASIS OF VULVA AND VAGINA 08/26/2013 BERNARDAngela CORRIGAN PACHECO A 112.0 CANDIDIASIS OF MOUTH 08/26/2013 BERNARD LEAD INGOT MOLDER PACHECO A 112.1 CANDIDIASIS OF VULVA AND VAGINA 08/26/2013 NELOSN DO, ROSANNA K 112.0 CANDIDIASIS OF MOUTH [...] CANDIDIASIS OF VULVA AND VAGINA 08/26/2013 BERNARD LEAD INGOT MOLDER PACHECO A 112.0 CANDIDIASIS OF MOUTH 08/26/2013 BERNARD LEAD INGOT MOLDER PACHECO A 112.1 CANDIDIASIS OF VULVA AND VAGINA 08/26/2013 NELSON DO, ROSANNA K 112.0 CANDIDIASIS OF MOUTH 08/26/2013 NELSON DO, ROSANNA K 112.1 CANDIDIASIS OF VULVA AND VAGINA 08/26/2013 HARRIS LEAD INGOT MOLDER, ONIEL R 112.0 CANDIDIASIS OF MOUTH 08/26/2013 KIMBERLEY HARRIS APRNRICIA R 112.1 CANDIDIASIS OF VULVA AND VAGINA 09/30/2013 SAGE NELSON DOA K 564.00 CONSTIPATION 09/30/2013 NELSON SAGE [place] K 623.5 LEUKORRHEA NOT SPECIFIED INFECTIVE 09/30/2013 NELSON SAGE [place] K 789.00 ABDOMINAL PAIN UNSPECIFIED SITE 09/30/2013 SAGE NELSON DOA K V65.45 STD COUNSELING 09/30/2013 NELSON SAGE [place] K V74.5 STD SCREEN 09/30/2013 NELSON SAGE [place] K V76.10 BREAST CANCER SCREENING 09/30/2013 BERNARD ANDREWSAngela PACHECO A 564.00 CONSTIPATION 09/30/2013 BERNARD ANDREWSAngela PACHECO A 623.5 LEUKORRHEA NOT SPECIFIED INFECTIVE 09/30/2013 BERNARD ANDREWSAngela PACHECO A 789.00 ABDOMINAL PAIN UNSPECIFIED SITE 09/30/2013 BERNARD LEAD INGOT MOLDERAMIRAH MillerIDI A V65.45 STD COUNSELING 09/30/2013 BERNARD ANDREWSAngela PACHECO A V74.5 STD SCREEN 09/30/2013 BERNARD ANDREWSAngela PACHECO A V76.10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
== END 2018-06-07 23:37 | disposition home or self-care (01) ==
LOC: EDUNIT# 22:02 → ER 22:04
DX: R07.89 Other chest pain (principal); E78.00 Pure hypercholesterolemia, unspecified; I10 Essential (primary) hypertension; Z88.2 Allergy status to sulfonamides; Z88.8 Allergy status to other drugs, medicaments and biological substances; Z79.52 Long term (current) use of systemic steroids; Z90.89 Acquired absence of other organs; Z98.51 Tubal ligation status
CPT/HCPCS: 36415; 71045; 80053; 82150; 82550; 82553; 83690; 83735; 83874; 83880; 84484; 85025; 85610; 85730; 93005; 93041; 96374

== ENCOUNTER → 2019-10-17 | Outpatient (CLI) | payer OTHER ==
[~2019-10-17] MED LIST changes: +METH4TAB PO
--- NOTE | 2019-10-17 16:19 | Diagnostic Imaging Report ---
INDICATION: Routine screening. COMPARISON is made with prior mammograms of 10/01/2018 and 09/02/2016. 2-D and 3-D bilateral screening mammography was performed with CAD. Both breasts are heterogeneously dense, limiting the sensitivity of mammography. Benign parenchymal and vascular calcifications are noted bilaterally. No spiculated mass or malignant appearing microcalcifications are seen. Axillae are unremarkable. IMPRESSION: BI-RADS Category 2 No mammographic features suspicious for malignancy are identified. ACR BI-RADS Category 2: Benign findings. Result letter will be mailed to the patient. Note: At least 10% of breast cancer is not imaged by mammography. Dictated by: Dictated on workstation # [id number]
== END ==
LOC: RAD 10:22
PROVIDERS: ATTEND Physician Assistant
DX: Z12.31 Encounter for screening mammogram for malignant neoplasm of breast (principal)
CPT/HCPCS: 77063; 77067

== ENCOUNTER 2019-11-23 05:12 | Emergency (ER) | payer OTHER ==
--- OUTSIDE RECORDS SUMMARY | 2019-11-23 05:23 | XMS REPORT | Clinical Summary ---
Author Author [facility] Organization [facility] Address Unknown Phone Unavailable Care Team Providers Care Soil Technician Name Role Phone Judd Phillips MD Unavailable Unavailable Elvi Ortiz PCP Source Comments Some departments are not documenting in the electronic medical record. If you d o not see the information that you expected, contact Release of Information in [facility] [employer] Information Management department at [phone] for further assistan ce in locating additional records.[facility] Allergies Comments Active Allergy Reactions Severity Noted Date Amitriptyline DIZZINESS Low 01/23/2015 Sulfamethoxazole-Trimetho UNKNOWN Low 01/08 prim Ciprofloxacin HIVES Medium 01/23/2015 Iodinated Contrast Media UNKNOWN Low 01/17 Erythromycin UNKNOWN Low 01/23/2015 Metronidazole UNKNOWN Low [...] Used Never Smoker Smokeless Tobacco: Never Used Drinks/Week oz/Week Comments Alcohol Use No Sex Assigned at Date Recorded Not on file Last Filed Vital Signs Reading Time Taken Comments Vital Sign 142/88 01/17/2018 3:13 PM CDT Blood Pressure 85 01/17/2018 3:13 PM CDT Pulse 36.3 C (97.4 F) 01/27/2015 9:53 AM CDT Temperature 18 01/27/2015 9:53 AM CDT Respiratory Rate 98% 01/27/2015 9:53 AM CDT Oxygen Saturation - - Inhaled Oxygen Concentration 81.6 kg (180 lb) 01/17/2018 3:13 PM CDT Weight 157.5 cm (5' 2") 01/17/2018 3:13 PM CDT Height 32.92 01/17/2018 3:13 PM CDT Body Mass Index Plan of Treatment Health Maintenance Due Date Last Done Comments HIV SCREENING 1972 DTAP/TDAP VACCINES (1 - 1975 Tdap) HEPATITIS C SCREENING 1975 PHYSICAL (COMPREHENSIVE) 1975 EXAM CERVICAL CANCER SCREENING 1978 BREAST CANCER SCREENING 1997 COLORECTAL CANCER 2007 SCREENING SHINGLES RECOMBINANT 2007 VACCINE (1 of 2) INFLUENZA VACCINE 01/09/2020 Results Not on filefrom Last 3 Months Advance Directives Patient Plant Guide Explanation Type Date Recorded Advance 11/11/2014 2:36 PM Directive/DPOA
--- OUTSIDE RECORDS SUMMARY | 2019-11-23 05:24 | XMS REPORT ---
Author Author Liana Phillips Organization [facility] Address [address] [place] [address] Care Team Providers Care Tow Truck Driver Name Role Phone Alan Yanet Unavailable PROBLEMS Type Condition ICD9-CM Code [id number] Code Onset Dates Condition S tatus SNOMED Code Problem Essential hypertension I10 Active [id number] ALLERGIES No Information ENCOUNTERS Encounter Location Date Diagnosis [facility] [address] [facility] [place] [id number] Oct, [facility] [address] [facility] [id number] Oct, Rib pain on left side R07.81 IMMUNIZATIONS No Known Immunizations SOCIAL HISTORY Never Assessed REASON FOR VISIT TEST RESULTS PLAN OF CARE VITAL SIGNS MEDICATIONS Unknown Medications RESULTS No Results PROCEDURES No Known procedures INSTRUCTIONS MEDICATIONS ADMINISTERED No Known Medications MEDICAL (GENERAL) HISTORY Type Description Date Medical History Hypertension, unspecified type Medical History High cholesterol Surgical History tubal ligation 1988 Surgical History carpal tunnel release 2011
--- OUTSIDE RECORDS SUMMARY | 2019-11-23 05:24 | XMS REPORT ---
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 arm/shoulder when exhaling 1:43 PLAN OF CARE Activity Details Follow Up prn Reason: Pending Test X Ray : Chest PA & Lateral ( CXR) - IH VITAL SIGNS Height 5 ft 2 in in 2019-11-05 Weight 180.8 lbs 2019-11-05 BMI 33.07 kg/m2 2019-11-05 Temperature 97.7 degrees Fahrenheit 2019-11-05 Heart Rate 80 /min 2019-11-05 Respiratory Rate 20 /min 2019-11-05 Oximetry 99 % 2019-11-05 Blood pressure systolic 132 mm Hg 2019-11-05 Blood pressure diastolic 82 mm Hg 2019-11-05 MEDICATIONS Medication Instructions Dosage Frequency Start Date End Date Duration S tatus Klor-Con 20 MEQ Orally Once a day 1 packet with food 24h 30 day(s) Active Meclizine HCl 25 MG Orally Once a day 1 tablet as needed 24h 30 day(s) Active Pollok 5-325 MG Orally every 6 hrs 1 tablet as needed 6h Active Cyclobenzaprine HCl 10 MG Orally Once a day 1 tablet at bedtime as ne eded 24h 30 day(s) Active PredniSONE 20 MG Orally Once a day 2 tablets 24h Oct, Nov, 5 days Active Amlodipine Besylate 10 MG Orally Once a day 1 tablet 24h 30 day(s) Active Naproxen 250 MG Orally Twice a day 1 tablet with food or milk 12h 30 day(s) Active Triamterene-HCTZ 37.5-25 MG Orally Once a day 1 tablet in the morning 24h 30 day(s) Active Pravastatin Sodium 10 MG Orally Once a day 1 tablet 24h 30 day(s) Active RESULTS No Results PROCEDURES Procedure Date Ordered Result Body Site X-RAY EXAM CHEST 2 VIEWS TC November 05, 2019 INSTRUCTIONS MEDICATIONS ADMINISTERED No Known Medications MEDICAL (GENERAL) HISTORY Type Description Date Medical History Hypertension, unspecified type Medical History High cholesterol Surgical History tubal ligation 1988 Surgical History carpal tunnel release 2011
--- OUTSIDE RECORDS SUMMARY | 2019-11-23 05:33 | XMS REPORT ---
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 Name Role Phone Migration, Doctor Unavailable Unavailable PROBLEMS Type Condition ICD9-CM Code [id number] Code Onset Dates Condition S tatus SNOMED Code Problem Hematuria, unspecified type R31.9 Ac tive 36953404 Problem Abnormal glucose R73.09 Active 102 658180 Problem Abnormal renal ultrasound R93.429 Acti ve [id number] Problem Neuroforaminal stenosis of spine M99.89 Active [id number] Problem Essential hypertension I10 Active 56881293 Problem Mixed hyperlipidemia E78.2 Active 91755339 Problem Other chronic pain G89.29 Active 8 9838087 Problem Neck pain M54.2 Active 21255465 Problem Slow transit constipation K59.01 Acti ve 99349077 Problem Anxiety F41.9 Active 61096260 Problem Hypokalemia E87.6 Active 36539817 Problem Chronic pain due to trauma G89.21 Act juanis 807621439 Problem Seasonal allergies J30.2 Active 4 81000283 Problem Rhinosinusitis J32.9 Active 49567 4004 ALLERGIES No Information ENCOUNTERS Encounter Location Date Diagnosis [facility] [address] [facility] [id number] [address] [place] [phone] Jan, [facility] [address] [facility] [id number] [address] [place] [phone] Nov, [facility] [address] [facility] [id number] [address] [place] [address] Oct, 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 [facility] [address] [facility] [id number] [address] [place] [address] Oct, [facility] [address] [facility] [id number] [address] [place] [address] Oct, Right flank pain R10.9 ; Low er abdominal pain R10.30 ; Slow transit constipation K59.01 and Neuroforaminal stenosis of spine M99.89 [place] [address] [facility] [id number] [address] [place] [address] Oct, 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 [place] [address] [facility] [id number] [address] [place] [address] Oct, 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 ; Screening breast examination Z12.39 and Other chronic pain G89.29 [place] [address] [facility] [id number] [address] [place] [address] Sep, [place] [address] [facility] [id number] [address] [place] [address] Sep, 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 [facility] [place] [address] [facility] [id number] [address] [place] [phone] Sep, Encounter for laboratory luisa tinkristin for COVID-19 virus V73.89 [place] [address] [facility] [id number] [address] [place] [address] August, 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 [place] [address] [facility] [id number] [address] [place] [address] August, Acute bacterial conjunctivit is of right eye H10.31 [facility] [address] [facility] [id number] [address] [place] [phone] August, Low back pain M54.5 ; Other chronic pain G89.29 and Dysuria R30.0 [place] [address] [facility] [id number] [address] [place] [address] August, [place] [address] [facility] [id number] [address] [place] [address] Jul, 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 [place] [address] [facility] [id number] [address] [place] [address] Jul, Allergic conjunctivitis of b oth eyes H10.13 [place] [address] [id number] [address] [place] [address] Jun, Hypokalemia E87.6 [facility] [address] [id number] [address] [place] [address] Jun, [place] [address] [id number] [address] [place] [address] Jun, Neuroforaminal stenosis of s jose M99.89 [place] [address] [id number] [address] [place] [address] Jun, Lateral epicondylitis, left elbow M77.12 and Medial epicondylitis, left elbow M77.02 [place] [address] [id number] [address] [place] [phone] 16 Jun, 2019 Foraminal stenosis of lumbar region M48.061 ; Segmental dysfunction of thoracic region M99.02 ; Segmental dysfunction of lumbar region M99.03 and Segmental dysfunction of sacral region M99.04 [place] [address] [id number] [address] [place] [address] May, Left elbow pain M25.522 [place] [address] [id number] [address] [place] [address] May, [place] [address] [id number] [address] [place] [address] May, Left elbow pain M25.522 [place] [address] [id number] [address] [place] [address] May, 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 [place] [address] [facility] [id number] [address] [place] [address] May, Rhinosinusitis J32.9 ; Left elbow pain M25.522 and Neck pain M54.2 [place] [address] [id number] [address] [place] [phone] 14 May, 2019 Lateral epicondylitis of lef t elbow M77.12 [facility] [address] [id number] [address] [place] [address] Apr, 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 [facility] [address] [id number] [address] [place] [address] Apr, Essential hypertension I10 a nd Mixed hyperlipidemia E78.2 [facility] [address] [id number] [address] [place] [address] Mar, 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 [facility] [address] [id number] [address] [place] [address] Mar, Epicondylitis, lateral, left M77.12 [facility] [address] [id number] [address] [place] [address] Mar, [facility] [address] [id number] [address] [place] [address] Mar, 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 [facility] [address] [id number] [address] [place] [address] Feb, 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 ; Essential hypertension I10 ; Mixed hyperlipidemia E78.2 ; Encounter for immunization Z23 and Seasonal allergies J30.2 [facility] [address] [id number] [address] [place] [address] Jan, 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 [facility] [address] [id number] [address] [place] [address] Dec, 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 [facility] [address] [id number] [address] [place] [address] Dec, 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 [facility] [address] [id number] [address] [place] [address] Nov, [facility] [address] [id number] [address] [place] [address] Nov, 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 [facility] [address] [id number] [address] [place] [address] Nov, Acute non-recurrent maxillar y sinusitis J01.00 [facility] [address] [id number] [address] [place] [address] Oct, Hypokalemia E87.6 [facility] [address] [id number] [address] [place] [address] Oct, Wasp sting, undetermined int ent, initial encounter T63.464A and Cellulitis of left lower extremity L03.116 [place] [address] [id number] [address] [place] [address] Oct, 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 [place] [address] [id number] [address] [place] [address] Sep, [place] [address] [id number] [address] [place] [address] Sep, [facility] [address] [id number] [address] [place] [address] Sep, Routine screening for STI (s exually transmitted infection) Z11.3 [place] [address] [id number] [address] [place] [address] Sep, Routine screening for STI (s exually transmitted infection) Z11.3 ; Well woman exam with routine gynecological exam Z01.419 and Breast cancer screening Z12.39 [place] [address] [id number] [address] [place] [address] Sep, 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 [facility] [address] [id number] [address] [place] [address] August, 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 [facility] [address] [id number] [address] [place] [address] August, 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 ; Chronic pain due to trauma G89.21 and Mixed hyperlipidemia E78.2 [facility] [address] [id number] [address] [place] [phone] Jul, Viral upper respiratory illn ess J06.9 and Acute non-recurrent frontal sinusitis J01.10 [facility] [address] [id number] [address] [place] [address] Jul, Congestion of nasal sinus R0 9.81 [facility] [address] [id number] [address] [place] [address] Jul, 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 and Essential hypertension I10 [facility] [address] [id number] [address] [place] [address] May, 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 [facility] [address] [id number] [address] [place] [address] May, [facility] [address] [id number] [address] [place] [address] May, Congestion of nasal sinus R0 9.81 [facility] [address] [id number] [address] [place] [address] May, [facility] [address] [id number] [address] [place] [address] Apr, 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 [facility] [address] [id number] [address] [place] [address] Apr, 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 and Chronic pain due to trauma G89.21 [facility] [address] [id number] [address] [place] [address] Mar, UTI (urinary tract infection ) N39.0 [facility] [address] [id number] [address] [place] [phone] 07 Mar, 2018 Vertigo R42 [facility] [address] [id number] [address] [place] [address] Mar, Neuroforaminal stenosis of s jose M99.89 [facility] [address] [id number] [address] [place] [address] Feb, Extensor tendon disruption M 67.89 [facility] [address] [id number] [address] [place] [address] Feb, Neuroforaminal stenosis of s jose M99.89 and High risk medication use Z79.899 [facility] [address] [id number] [address] [place] [address] Jan, Hypokalemia E87.6 [facility] [address] [facility] [id number] [address] [place] [address] Jan, Flank pain R10.9 and Acute r ight-sided low back pain without sciatica M54.5 [facility] [address] [id number] [address] [place] [address] Jan, Hypokalemia E87.6 [facility] [address] [facility] [id number] [address] [place] [phone] Jan, [facility] [address] [facility] [id number] [address] [place] [address] Jan, URI, acute J06.9 [facility] [address] [facility] [id number] [address] [place] [phone] 05 Jan, 2018 Neuroforaminal stenosis of s jose M99.89 [facility] [address] [facility] [id number] [address] [place] [phone] 13 Dec, 2017 Lateral epicondylitis, right elbow M77.11 [facility] [address] [facility] [id number] [address] [place] [phone] Dec, Allergic rhinitis due to monica rosalina, unspecified seasonality J30.1 and Allergic conjunctivitis of both eyes H10.13 [place] [address] [address] Dec, 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 [place] [address] [address] Dec, Mixed hyperlipidemia E78.2 [place] [address] [address] Dec, Abnormal glucose R73.09 ; Ab normal renal ultrasound R93.429 ; Dysuria R30.0 ; Cystitis without hematuria N30.90 ; Hypokalemia E87.6 ; Mixed hyperlipidemia E78.2 and Hematuria, unspecified type R31.9 [place] [address] [address] Nov, Hypokalemia E87.6 ; Mixed hy perlipidemia E78.2 and Hematuria, unspecified type R31.9 [place] [address] [address] Nov, [place] [address] [address] Nov, Hypokalemia E87.6 [place] [address] [address] Nov, [place] [address] [address] Nov, Abnormal renal ultrasound R9 3.429 [place] [address] [address] Nov, Abnormal renal ultrasound R9 3.429 [place] [address] [address] Nov, Hematuria, unspecified type R31.9 and Neuroforaminal stenosis of spine M99.89 [place] [address] [id number] [address] [place] [address] Nov, Dysuria R30.0 [facility] [address] [id number] [address] [place] [address] Oct, Lateral epicondylitis, right elbow M77.11 [facility] [address] [id number] [address] [place] [address] Oct, 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 ; Visit for TB skin test Z11.1 and Essential hypertension I10 [place] [address] [id number] [address] [place] [address] Oct, [place] [address] [id number] [address] [place] [address] Oct, 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 [place] [address] [id number] [address] [place] [address] Oct, Visit for TB skin test Z11.1 [place] [address] [id number] [address] [place] [address] 05 Oct, 2017 Cystitis without hematuria N 30.90 [place] [address] [id number] [address] [place] [address] Sep, Screening breast examination Z12.39 [place] [address] [id number] [address] [place] [address] Sep, Dysuria R30.0 and Cystitis w ithout hematuria N30.90 [place] [address] [id number] [address] [place] [address] 14 Sep, 2017 Essential hypertension I10 a nd 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 [facility] [address] [id number] [address] [place] [address] Sep, Abnormal glucose R73.09 [place] [address] [id number] [address] [place] [address] August, Lateral epicondylitis, right elbow M77.11 [facility] [address] [id number] [address] [place] [address] August, Screen for STD (sexually tra nsmitted disease) Z11.3 [facility] [address] [id number] [address] [place] [address] August, Neuroforaminal stenosis of s jose M99.89 ; Mixed hyperlipidemia E78.2 ; Elevated fasting glucose R73.01 ; Screening mammogram, encounter for Z12.31 and Encounter for well woman exam without gynecological exam Z00.00 [facility] [address] [id number] [address] [place] [address] August, 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 [facility] [address] [id number] [address] [place] [address] August, Essential hypertension I10 ; Hypokalemia E87.6 and Mixed hyperlipidemia E78.2 [place] [address] [id number] [address] [place] [address] Jul, [place] [address] [id number] [address] [place] [address] Jul, Neuroforaminal stenosis of s jose M99.89 [facility] [address] [id number] [address] [place] [address] Jul, Lateral epicondylitis, right elbow M77.11 [place] [address] [id number] [address] [place] [address] Jul, [place] [address] [id number] [address] [place] [address] Jun, High ankle sprain of right l ower extremity, initial encounter S93.431A [facility] [address] [id number] [address] [place] [address] Jun, Essential hypertension I10 [place] [address] [id number] [address] [place] [address] Jun, [place] [address] [facility] [id number] [address] [place] [address] Jun, [place] [address] [facility] [id number] [address] [place] [address] Jun, 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 [place] [address] [place] [id number] [address] [place] [address] Jun, Pain of right upper extremit y M79.601 and Essential hypertension I10 [place] [address] [facility] [id number] [address] [place] [address] Jun, [place] [address] [facility] [id number] [address] [place] [address] Jun, Dysuria R30.0 ; Acute cystit is with hematuria N30.01 and Screen for STD (sexually transmitted disease) Z11.3 [place] [id number] [place] [address] May, Chronic pain due to trauma G 89.21 [place] [address] [facility] [id number] [address] [place] [address] May, Essential hypertension I10 [place] [address] [facility] [id number] [address] [place] [address] May, 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 [place] [address] [place] [id number] [address] [place] [address] Apr, Allergic reaction, initial e ncounter T78.40XA [place] [address] [facility] [id number] [address] [place] [address] Apr, Low back pain, unspecified b ack pain laterality, unspecified chronicity, with sciatica presence unspecified M54.5 ; Acute cystitis with hematuria N30.01 ; Neuroforaminal stenosis of 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 ; Bilateral acute serous otitis media, recurrence not specified H65.03 ; Mixed hyperlipidemia E78.2 ; Essential hypertension I10 ; Immunization counseling Z71.89 and Encounter for immunization Z23 [facility] [address] [id number] [address] [place] [address] 08 Apr, 2017 Neck pain M54.2 [facility] [address] [id number] [address] [place] [address] Mar, 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 [facility] [address] [id number] [address] [place] [address] Mar, Pharyngitis due to other org anism J02.8 [facility] [address] [id number] [address] [place] [address] Feb, 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 [facility] [address] [id number] [address] [place] [address] Feb, UTI (urinary tract infection ) N39.0 [facility] [address] [facility] [id number] [address] [place] [address] Feb, Recent urinary tract infecti on Z87.440 ; Neuroforaminal stenosis of spine M99.89 ; Neck pain M54.2 ; Chronic pain due to trauma G89.21 and Recurrent UTI N39.0 [facility] [address] [id number] [address] [place] [address] Feb, [facility] [address] [id number] [address] [place] [phone] Jan, 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 [facility] [address] [id number] [address] [place] [address] Dec, 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 [facility] [address] [facility] [id number] [address] [place] [phone] 18 Dec, 2016 Acute seasonal allergic rhin itis due to pollen J30.1 [facility] [address] [id number] [address] [place] [address] Dec, [place] [address] [id number] [address] [place] [address] Dec, Acute seasonal allergic rhin itis, unspecified trigger J30.2 ; Allergic conjunctivitis of both eyes H10.13 and Dysfunction of both eustachian tubes H69.83 [facility] [address] [id number] [address] [place] [phone] Dec, [place] [address] [id number] [address] [place] [address] Dec, Nevus D22.9 [place] [address] [id number] [address] [place] [address] Nov, Chronic pain due to trauma G 89.21 and Neuroforaminal stenosis of spine M99.89 [place] [address] [facility] [id number] [address] [place] [phone] Nov, 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 ; Essential hypertension I10 ; Mixed hyperlipidemia E78.2 ; Hypokalemia E87.6 ; Neck pain M54.2 and Nevus D22.9 [place] [address] [id number] [address] [place] [phone] Oct, 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 [place] [address] [address] [facility] [id number] [address] [place] [phone] Sep, 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 [place] [id number] [id number] [address] [place] [phone] Sep, [place] [id number] [id number] [address] [place] [phone] August, [place] [address] [address] [facility] [id number] [address] [place] [id number] August, Neck pain M54.2 and Neurofor aminal stenosis of spine M99.89 [place] [address] [address] [facility] [id number] [address] [place] [phone] August, Routine gynecological examin ation Z01.419 and Screening breast examination Z12.39 [facility] [address] [id number] [address] [place] [phone] Jul, [facility] [address] [id number] [address] [place] [phone] Jul, [facility] [address] [id number] [address] [place] [phone] Jul, 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 [facility] [address] [id number] [address] [place] [phone] Jul, [facility] [address] [id number] [address] [place] [phone] Jul, Neuroforaminal stenosis of l umbar 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 [facility] [address] [id number] [address] [place] [phone] Jul, [facility] [address] [id number] [address] [place] [address] [address] Jul, [facility] [address] [id number] [address] [place] [address] Jun, 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 [facility] [address] [id number] [address] [place] [address] Jun, Uterine leiomyoma, unspecifi ed location D25.9 and Allergic reaction caused by a drug, initial encounter T78.40XA [facility] [address] [id number] [address] [place] [address] Jun, [facility] [address] [id number] [address] [place] [address] May, UTI symptoms R39.9 and Pain of right sacroiliac joint M53.3 [facility] [address] [id number] [address] [place] [address] May, 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 [place] [id number] [id number] [address] [place] [address] May, [facility] [address] [id number] [address] [place] [address] May, Acute mucoid otitis media of left ear H65.112 and Acute non- recurrent maxillary sinusitis J01.00 [place] [address] [id number] [address] [place] [address] May, Acute bacterial conjunctivit is of both eyes H10.33 ; Left arm pain M79.602 and Hypokalemia E87.6 [place] [address] [id number] [address] [place] [address] Apr, [place] [address] [facility] [id number] [address] [place] [address] Apr, 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 ; Neck pain M54.2 ; Chronic pain due to trauma G89.21 ; Mixed hyperlipidemia E78.2 ; Essential hypertension I10 and Hypokalemia E87.6 [place] [address] [facility] [id number] [address] [place] [address] Mar, Oral candidiasis B37.0 ; Nathaniel roforaminal stenosis of spine M99.89 ; Neck pain M54.2 and Chronic pain due to trauma G89.21 [place] [address] [facility] [id number] [address] [place] [address] Feb, [place] [address] [id number] [address] [place] [address] Feb, [place] [address] [facility] [id number] [address] [place] [address] Feb, UTI (urinary tract infection ) N39.0 [place] [address] [facility] [id number] [address] [place] [phone] 09 Feb, 2016 Dysuria R30.0 [place] [address] [id number] [address] [place] [phone] 08 Feb, 2016 Dysuria R30.0 [facility] [address] [id number] [address] [place] [address] Feb, Neuroforaminal stenosis of s jose M99.89 ; Neck pain M54.2 ; Essential hypertension I10 ; Chronic pain due to trauma G89.21 ; Dysuria R30.0 ; Abnormal MRI, shoulder R93.8 and Acute cystitis without hematuria N30.00 [facility] [address] [id number] [address] [place] [address] Jan, [facility] [address] [id number] [address] [place] [address] Jan, [facility] [address] [id number] [address] [place] [address] Jan, [facility] [address] [id number] [address] [place] [address] Jan, Abnormal MRI R93.8 [facility] [address] [id number] [address] [place] [address] 29 Dec, 2015 [facility] [address] [id number] [address] [place] [address] 15 Dec, 2015 Acute pain of left shoulder M25.512 [facility] [address] [id number] [address] [place] [phone] 09 Dec, 2015 [facility] [address] [id number] [address] [place] [phone] 08 Dec, 2015 [facility] [address] [id number] [address] [place] [phone] 07 Dec, 2015 Acute pain of left shoulder M25.512 [facility] [address] [id number] [address] [place] [address] Nov, [facility] [address] [id number] [address] [place] [address] Nov, 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 ; Neck pain M54.2 ; Abnormal mammogram R92.8 ; Essential hypertension I10 and Chronic pain due to trauma G89.21 [facility] [address] [id number] [address] [place] [address] Nov, [facility] [address] [id number] [address] [place] [phone] Oct, Acute stress disorder F43.0 [facility] [address] [id number] [address] [place] [address] Oct, [facility] [address] [id number] [address] [place] [address] Oct, [facility] [address] [id number] [address] [place] [phone] Oct, [facility] [address] [id number] [address] [place] [phone] Sep, [facility] [address] [id number] [address] [place] [address] August, [facility] [address] [id number] [address] [place] [address] Jul, 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 ; Neck pain M54.2 ; Abnormal mammogram R92.8 and Essential hypertension I10 [facility] [address] [id number] [address] [place] [address] Jul, [facility] [address] [id number] [address] [place] [address] Jul, [facility] [address] [id number] [address] [place] [phone] Jul, Abnormal mammogram R92.8 [facility] [address] [id number] [address] [place] [phone] Jul, [facility] [address] [id number] [address] [place] [address] Jul, UTI (urinary tract infection ) N39.0 [facility] [address] [id number] [address] [place] [address] Jul, Dysuria R30.0 [facility] [address] [id number] [address] [place] [phone] Jun, [facility] [address] [id number] [address] [place] [phone] Jun, [facility] [address] [id number] [address] [place] [address] Jun, Hypokalemia E87.6 and Hematu martina R31.9 [facility] [address] [id number] [address] [place] [phone] Jun, Hypokalemia E87.6 [facility] [address] [facility] [id number] [address] [place] [phone] Jun, [facility] [address] [id number] [address] [place] [address] Jun, Hypokalemia E87.6 [facility] [address] [id number] [address] [place] [address] Jun, Hypokalemia E87.6 [facility] [address] [facility] [id number] [address] [place] [address] Jun, 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 ; Hypokalemia E87.6 ; Neck pain M54.2 ; Essential hypertension I10 ; Mixed hyperlipidemia E78.2 and Screening breast examination Z12.39 [facility] [address] [id number] [address] [place] [phone] 08 Jun, 2015 Dysuria R30.0 ; UTI (urinary tract infection) N39.0 and Hematuria R31.9 [facility] [address] [id number] [address] [place] [phone] May, [facility] [address] [facility] [id number] [address] [place] [phone] 18 May, 2015 High risk sexual behavior Z7 2.51 ; Hypokalemia E87.6 ; Neuroforaminal stenosis of spine M99.89 ; Neck pain M54.2 ; Essential hypertension I10 ; Mixed hyperlipidemia E78.2 ; STD exposure Z20.2 and Concern about STD in female without diagnosis Z71.1 [facility] [address] [place] [id number] [address] [place] [phone] 16 May, 2015 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 ; Neck pain M54.2 ; Hypokalemia E87.6 ; Essential hypertension I10 and Mixed hyperlipidemia E78.2 [facility] [address] [phone] 11 May, 2015 [facility] [address] [place] [id number] [address] [place] [id number] 08 May, 2015 High risk sexual behavior Z7 2.51 ; STD exposure Z20.2 and Concern about STD in female without diagnosis Z71.1 [facility] [address] [place] [id number] [address] [place] [address] May, [facility] [address] [address] Apr, 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 ; Mixed hyperlipidemia E78.2 ; Essential hypertension I10 and Hypokalemia E87.6 [place] [address] [place] [id number] [address] [place] [address] Mar, [place] [id number] [place] [address] Mar, Hypokalemia E87.6 [place] [address] [place] [id number] [place] [address] Mar, 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 ; Mixed hyperlipidemia E78.2 ; Neck pain M54.2 ; Essential hypertension I10 ; Abnormal fasting glucose R73.09 ; Hypokalemia E87.6 and Constipation K59.00 [place] [id number] [facility] [id number] [address] [place] [address] Feb, 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 ; Mixed hyperlipidemia E78.2 ; Neck pain M54.2 ; Essential hypertension I10 ; Abnormal fasting glucose R73.09 ; Hypokalemia E87.6 and Constipation K59.00 [place] [address] [facility] [id number] [address] [place] [address] Feb, Elevated fasting blood sugar R73.01 [place] [address] [facility] [id number] [address] [place] [address] Feb, Elevated fasting blood sugar R73.01 [place] [address] [place] [id number] [place] [address] Feb, Hair loss L65.9 [place] [address] [place] [id number] [place] [address] Feb, Sinusitis J32.9 ; Essential hypertension I10 and Hair loss L65.9 [place] [address] [place] [id number] [address] [place] [address] Jan, [place] [address] [place] [id number] [place] [address] Jan, Essential hypertension I10 ; Neuroforaminal stenosis of spine M99.89 ; Neck pain M54.2 ; Mixed hyperlipidemia E78.2 and Anxiety F41.9 [place] [address] [place] [id number] [address] [place] [address] Jan, [place] [address] [place] [id number] [address] [place] [address] Jan, Mixed hyperlipidemia E78.2 ; Essential (primary) hypertension I10 ; Strain of muscle, fascia and tendon at neck level, subsequent encounter S16.1XXD and Tension-type headache, unspecified, not intractable G44.209 [place] [address] [place] [id number] [address] [place] [phone] Dec, Lumbar back pain 724.2 and N euroforaminal stenosis of spine 724.00 [facility] [address] [id number] [address] [place] [address] Nov, [facility] [address] [id number] [address] [place] [address] Nov, Lumbar back pain 724.2 and N euroforaminal stenosis of spine 724.00 [facility] [address] [id number] [address] [place] [address] Nov, Edema 782.3 ; Lumbar back pa in 724.2 ; Essential hypertension, benign 401.1 ; Hyperlipemia 272.4 ; Neuroforaminal stenosis of spine 724.00 and Post-concussion headache 339.20 [facility] [address] [id number] [address] [place] [address] Nov, [facility] [address] [id number] [address] [place] [address] Nov, [facility] [address] [id number] [address] [place] [address] Oct, Essential hypertension, sheridan gn 401.1 [facility] [address] [id number] [address] [place] [address] Oct, Edema 782.3 ; Lumbar back pa in 724.2 ; Essential hypertension, benign 401.1 ; Hyperlipemia 272.4 ; Neuroforaminal stenosis of spine 724.00 and Post-concussion headache 339.20 [facility] [address] [id number] [address] [place] [address] Oct, [facility] [address] [id number] [address] [place] [address] Oct, Edema 782.3 [facility] [address] [id number] [address] [place] [address] Oct, Lumbar back pain 724.2 [facility] [address] [id number] [address] [place] [address] Oct, Cervicalgia 723.1 ; Lumbar b ack pain 724.2 and High risk medication use V58.69 [facility] [address] [id number] [address] [place] [address] Sep, [facility] [address] [facility] [id number] [address] [place] [address] Sep, Lumbar strain 847.2 [facility] [address] [id number] [address] [place] [address] August, Edema 782.3 and Eustachian t ube dysfunction 381.81 [facility] [address] [facility] [id number] [address] [place] [address] August, [facility] [address] [place] [id number] [address] [place] [address] August, Eustachian tube dysfunction 381.81 [facility] [address] [facility] [id number] [address] [place] [address] Jul, Otalgia 388.70 and Otitis me jonathon 382.9 [facility] [address] [facility] [id number] [address] [place] [phone] Jul, [facility] [address] [facility] [id number] [address] [place] [address] Jul, [facility] [address] [facility] [id number] [address] [place] [address] Jul, [facility] [address] [id number] [address] [place] [phone] Jul, [facility] [address] [id number] [address] [place] [phone] Jul, [facility] [address] [facility] [id number] [address] [place] [phone] Jun, [facility] [address] [facility] [id number] [address] [place] [phone] Jun, [facility] [address] [id number] [address] [place] [address], [place] [address] Jun, [facility] [address] [id number] [address] [place] [address], [place] [address] May, 2014 [facility] [address] [id number] [address] [place] [address], [place] [address] May, 2014 [facility] [address] [id number] [address] [place] [address], [place] [address] May, 2014 [facility] [address] [id number] [address] [place] [address], [place] [address] May, 2014 [facility] [address] [id number] [address] [place] [address], [place] [address] May, 2014 [facility] [address] [id number] [address] [place] [address], [place] [address] May, 2014 [facility] [address] [id number] [address] [place] [address], [place] [address] May, 2014 [facility] [address] [id number] [address] [place] [address], [place] [address] May, [facility] [address] [id number] [address] [place] [address], [place] [address] May, [facility] [address] [id number] [address] [place] [address], [place] [address] May, [facility] [address] [id number] [address] [place] [address], [place] [address] Apr, [facility] [address] [id number] [address] [place] [address], [place] [address] Apr, [facility] [address] [id number] [address] [place] [address], [place] [address] Apr, [facility] [address] [id number] [address] [place] [address], [place] [address] Apr, [facility] [address] [id number] [address] [place] [address], [place] [address] Apr, [facility] [address] [id number] [address] [place] [address], [place] [address] Apr, [facility] [address] [id number] [address] [place] [address], [place] [address] Apr, [facility] [address] [id number] [address] [place] [address], [place] [address] Apr, [facility] [address] [id number] [address] [place] [address], [place] [address] Apr, [facility] [address] [id number] [address] [place] [address], [place] [address] Apr, [facility] [address] [id number] [address] [place] [address], [place] [address] Apr, [facility] [address] [id number] [address] [place] [address], [place] [address] Apr, [facility] [address] [id number] [address] [place] [address], [place] [address] Apr, [facility] [address] [id number] [address] [place] [address], [place] [address] Apr, [facility] [address] [id number] [address] [place] [address], [place] [address] Apr, [facility] [address] [id number] [address] [place] [address], [place] [address] Mar, [facility] [address] [id number] [address] [place] [address], [place] [address] Mar, [facility] [address] [id number] [address] [place] [address], [place] [address] Mar, [facility] [address] [id number] [address] [place] [address], [place] [address] Mar, [facility] [address] [id number] [address] [place] [address], [place] [address] Feb, [facility] [address] [id number] [address] [place] [address], [place] [address] Feb, [facility] [address] [id number] [address] [place] [address], [place] [address] Feb, [facility] [address] [id number] [address] [place] [address], [place] [address] Feb, [facility] [address] [id number] [address] [place] [address], [place] [address] Jan, [facility] [address] [id number] [address] [place] [address], [place] [address] Jan, [facility] [address] [id number] [address] [place] [address], [place] [address] Jan, [facility] [address] [id number] [address] [place] [address], [place] [address] Jan, [facility] [address] [id number] [address] [place] [address], [place] [address] Jan, [facility] [address] [id number] [address] [place] [address], [place] [address] Jan, [facility] [address] [id number] [address] [place] [address], [place] [address] Jan, [facility] [address] [id number] [address] [place] [address], [place] [address] Jan, [facility] [address] [id number] [address] [place] [address], [place] [address] Dec, 2013 [facility] [address] [id number] [address] [place] [address], [place] [id number] 29 Dec, 2013 [facility] [address] [id number] [address] [place] [address], [place] [address] Dec, [facility] [address] [id number] [address] [place] [address], [place] [id number] 04 Dec, 2013 [facility] [address] [id number] [address] [place] [address], [place] [address] Oct, 2013 [facility] [address] [id number] [facility] [place] [address] Oct, 2013 [facility] [address] [id number] [address] [place] [address], [place] [address] Oct, [facility] [address] [id number] [address] [place] [address], [place] [address] Oct, 2013 [facility] [address] [id number] [address] [place] [address], [place] [address] Oct, 2013 [facility] [address] [id number] [address] [place] [address], [place] [address] Oct, 2013 [facility] [address] [id number] [address] [place] [address], [place] [address] Oct, 2013 [facility] [address] [id number] [address] [place] [address], [place] [address] Oct, [facility] [address] [id number] [address] [place] [address], [place] [address] Sep, [facility] [address] [id number] [address] [place] [address], [place] [address] Sep, [facility] [address] [id number] [address] [place] [address], [place] [address] Sep, [facility] [address] [id number] [address] [place] [address], [place] [address] Sep, [facility] [address] [id number] [address] [place] [address], [place] [address] Sep, [facility] [address] [id number] [address] [place] [address], [place] [address] Sep, [facility] [address] [id number] [address] [place] [address], [place] [address] Sep, [facility] [address] [id number] [address] [place] [address], [place] [address] Sep, [facility] [address] [id number] [address] [place] [address], [place] [address] Sep, [facility] [address] [id number] [address] [place] [address], [place] [address] Sep, [facility] [address] [id number] [address] [place] [address], [place] [address] August, [facility] [address] [id number] [address] [place] [address], [place] [address] August, [facility] [address] [id number] [address] [place] [address], [place] [address] August, [facility] [address] [id number] [address] [place] [address], [place] [address] August, [facility] [address] [id number] [address] [place] [address], [place] [address] August, [facility] [address] [id number] [address] [place] [address], [place] [address] August, [facility] [address] [id number] [address] [place] [address], [place] [address] August, [facility] [address] [id number] [address] [place] [address], [place] [address] August, [facility] [address] [id number] [address] [place] [address], [place] [address] August, [facility] [address] [id number] [address] [place] [address], [place] [address] August, [facility] [address] [id number] [address] [place] [address], [place] [address] August, [facility] [address] [id number] [address] [place] [address], [place] [address] August, [facility] [address] [id number] [address] [place] [address], [place] [address] Jul, [facility] [address] [id number] [address] [place] [address], [place] [address] Jul, [facility] [address] [id number] [facility] [place] [address] Jul, [facility] [address] [id number] [address] [place] [address], [place] [address] Jul, [facility] [address] [id number] [address] [place] [address], [place] [address] Jul, [facility] [address] [id number] [address] [place] [address], [place] [address] Jul, [facility] [address] [id number] [address] [place] [address], [place] [address] Jun, [facility] [address] [id number] [address] [place] [address], [place] [address] Jun, [facility] [address] [id number] [address] [place] [address], [place] [address] May, [facility] [address] [id number] [address] [place] [address], [place] [address] May, [facility] [address] [id number] [address] [place] [address], [place] [address] Apr, [facility] [address] [id number] [address] [place] [address], [place] [address] Apr, [facility] [address] [id number] [address] [place] [address], [place] [address] Apr, [facility] [address] [id number] [address] [place] [address], [place] [address] Apr, [facility] [address] [id number] [address] [place] [address], [place] [address] Apr, [facility] [address] [id number] [address] [place] [address], [place] [address] Apr, [facility] [address] [id number] [address] [place] [address], [place] [address] Apr, [facility] [address] [id number] [address] [place] [address], [place] [address] Apr, [facility] [address] [id number] [address] [place] [address], [place] [address] Apr, [facility] [address] [id number] [address] [place] [address], [place] [address] Apr, [facility] [address] [id number] [address] [place] [address], [place] [address] Apr, [facility] [address] [id number] [address] [place] [address], [place] [address] Apr, [facility] [address] [id number] [address] [place] [address], [place] [address] Apr, [facility] [address] [id number] [address] [place] [address], [place] [address] Mar, [facility] [address] [id number] [address] [place] [address], [place] [address] Mar, [facility] [address] [id number] [address] [place] [address], [place] [address] Mar, [facility] [address] [id number] [address] [place] [address], [place] [address] Mar, [facility] [address] [id number] [address] [place] [address], [place] [address] Feb, [facility] [address] [id number] [address] [place] [address], [place] [address] Feb, [facility] [address] [id number] [address] [place] [address], [place] [address] Feb, [facility] [address] [id number] [address] [place] [address], [place] [address] Feb, [facility] [address] [id number] [address] [place] [address], [place] [address] Jan, [facility] [address] [id number] [address] [place] [address], [place] [address] Jan, [facility] [address] [id number] [address] [place] [address], [place] [address] Jan, [facility] [address] [id number] [address] [place] [address], [place] [address] Jan, [facility] [address] [id number] [address] [place] [address], [place] [address] Jan, [facility] [address] [id number] [address] [place] [address], [place] [address] Jan, [facility] [address] [id number] [address] [place] [address], [place] [address] Jan, [facility] [address] [id number] [address] [place] [address], [place] [address] Jan, [facility] [address] [id number] [address] [place] [address], [place] [address] Jan, [facility] [address] [id number] [address] [place] [address], [place] [address] 26 Dec, 2012 [facility] [address] [id number] [address] [place] [address], [place] [address] 16 Dec, 2012 [facility] [address] [id number] [address] [place] [address], [place] [address] 16 Dec, 2012 [facility] [address] [id number] [address] [place] [address], [place] [address] 13 Dec, 2012 [facility] [address] [id number] [address] [place] [address], [place] [address] 17 Nov, 2012 [facility] [address] [id number] [address] [place] [address], [place] [address] 17 Nov, 2012 [facility] [address] [id number] [address] [place] [address], [place] [address] 14 Nov, 2012 [facility] [address] [id number] [address] [place] [address], [place] [address] 05 Nov, 2012 [facility] [address] [id number] [address] [place] [address], [place] [address] Oct, [facility] [address] [id number] [address] [place] [address], [place] [address] Sep, [facility] [address] [id number] [address] [place] [address], [place] [address] August, [facility] [address] [id number] [address] [place] [address], [place] [address] August, [facility] [address] [id number] [address] [place] [address], [place] [address] August, [facility] [address] [id number] [address] [place] [address], [place] [address] August, [facility] [address] [id number] [address] [place] [address], [place] [address] August, [facility] [address] [id number] [address] [place] [address], [place] [address] August, [facility] [address] [id number] [address] [place] [address], [place] [address] August, [facility] [address] [id number] [address] [place] [address], [place] [address] August, [facility] [address] [id number] [address] [place] [address], [place] [address] August, [facility] [address] [id number] [address] [place] [address], [place] [address] August, [facility] [address] [id number] [address] [place] [address], [place] [address] August, [facility] [address] [id number] [address] [place] [address], [place] [address] August, [facility] [address] [id number] [address] [place] [address], [place] [address] Jul, [facility] [address] [id number] [address] [place] [address], [place] [address] Jul, [facility] [address] [id number] [address] [place] [address], [place] [address] 18 Jul, 2012 [facility] [address] [id number] [address] [place] [address], [place] [address] 15 Jul, 2012 [facility] [address] [id number] [address] [place] [address], [place] [address] Jul, [facility] [address] [id number] [address] [place] [address], [place] [address] 08 Jul, 2012 [facility] [address] [id number] [address] [place] [address], [place] [address] 04 Jul, 2012 [facility] [address] [id number] [address] [place] [address], [place] [address] Jul, [facility] [address] [id number] [address] [place] [address], [place] [address] Jul, [facility] [address] [id number] [address] [place] [address], [place] [address] Jul, [facility] [address] [id number] [address] [place] [address], [place] [address] Jul, [facility] [address] [id number] [address] [place] [address], [place] [address] Jun, [facility] [address] [id number] [address] [place] [address], [place] [address] Jun, [facility] [address] [id number] [address] [place] [address], [place] [address] Jun, [facility] [address] [id number] [address] [place] [address], [place] [address] Jun, [facility] [address] [id number] [address] [place] [address], [place] [address] 28 May, 2012 [facility] [address] [id number] [address] [place] [address], [place] [address] 14 May, 2012 [facility] [address] [id number] [address] [place] [address], [place] [address] 05 May, 2012 [facility] [address] [id number] [address] [place] [address], [place] [address] May, [facility] [address] [id number] [address] [place] [address], [place] [address] May, [facility] [address] [id number] [address] [place] [address], [place] [address] May, [facility] [address] [id number] [address] [place] [address], [place] [address] Apr, [facility] [address] [id number] [address] [place] [address], [place] [address] Apr, [facility] [address] [id number] [address] [place] [address], [place] [address] Apr, [facility] [address] [id number] [address] [place] [address], [place] [address] Apr, [facility] [address] [id number] [address] [place] [address], [place] [address] 15 Mar, 2012 [facility] [address] [id number] [address] [place] [address], [place] [address] 14 Mar, 2012 [facility] [address] [id number] [address] [place] [address], [place] [address] 14 Mar, 2012 [facility] [address] [id number] [address] [place] [address], [place] [address] 14 Mar, 2012 [facility] [address] [id number] [address] [place] [address], [place] [address] 14 Mar, 2012 [facility] [address] [id number] [address] [place] [address], [place] [address] 06 Mar, 2012 [facility] [address] [id number] [address] [place] [address], [place] [address] 06 Mar, 2012 [facility] [address] [id number] [address] [place] [address], [place] [address] Feb, [facility] [address] [id number] [address] [place] [address], [place] [address] Feb, [facility] [address] [id number] [address] [place] [address], [place] [address] Feb, [facility] [address] [id number] [address] [place] [address], [place] [address] Feb, [facility] [address] [id number] [address] [place] [address], [place] [address] Jan, [facility] [address] [id number] [address] [place] [address], [place] [address] Jan, [facility] [address] [id number] [address] [place] [address], [place] [address] Jan, [facility] [address] [id number] [address] [place] [address], [place] [address] Jan, [facility] [address] [id number] [address] [place] [address], [place] [address] Jan, [facility] [address] [id number] [address] [place] [address], [place] [address] Jan, [facility] [address] [id number] [address] [place] [address], [place] [address] Dec, [facility] [address] [id number] [address] [place] [address], [place] [address] Dec, [facility] [address] [id number] [address] [place] [address], [place] [address] Nov, [facility] [address] [id number] [address] [place] [address], [place] [address] Sep, [facility] [address] [id number] [address] [place] [address], [place] [address] August, [facility] [address] [id number] [address] [place] [address], [place] [address] August, [facility] [address] [id number] [address] [place] [address], [place] [address] August, [facility] [address] [id number] [address] [place] [address], [place] [address] August, [facility] [address] [id number] [address] [place] [address], [place] [address] August, [facility] [address] [id number] [address] [place] [address], [place] [address] Jun, [facility] [address] [id number] [address] [place] [address], [place] [address] Jun, [facility] [address] [id number] [address] [place] [address], [place] [address] Apr, [facility] [address] [id number] [address] [place] [address], [place] [address] Apr, [facility] [address] [id number] [address] [place] [address], [place] [address] Mar, [facility] [address] [id number] [address] [place] [address], [place] [address] Feb, [facility] [address] [id number] [address] [place] [address], [place] [address] Feb, [facility] [address] [id number] [address] [place] [address], [place] [address] Feb, [facility] [address] [id number] [address] [place] [address], [place] [address] 17 Jan, 2011 [facility] [address] [id number] [address] [place] [address], [place] [address] 15 Jan, 2011 [facility] [address] [id number] [address] [place] [address], [place] [address] 15 Jan, 2011 [facility] [address] [id number] [address] [place] [address], [place] [address] 14 Jan, 2011 [facility] [address] [id number] [address] [place] [address], [place] [address] 15 May, 2010 [facility] [address] [id number] [address] [place] [address] Mar, [facility] [address] [facility] [id number] [address] [place] [address] Oct, [facility] [address] [facility] [id number] [address] [place] [address] Sep, [facility] [address] [facility] [id number] [address] [place] [address] Mar, [facility] [address] [facility] [id number] [address] [place] [address] Jan, [facility] [address] [facility] [id number] [address] [place] [address] Jan, [facility] [address] [facility] [id number] [address] [place] [address] May, IMMUNIZATIONS No Known Immunizations SOCIAL HISTORY Never Assessed REASON FOR VISIT PLAN OF CARE VITAL SIGNS MEDICATIONS Unknown Medications RESULTS No Results PROCEDURES No Known procedures INSTRUCTIONS MEDICATIONS ADMINISTERED No Known Medications MEDICAL (GENERAL) HISTORY Type Description Date Medical History hypertension Medical History Colposcopy with loop electro de excision of the cervix was performed 06/2012, mild squamous atypia (no definite dyplasia). Performed at [facility] Dr. Joy. Medical History Acute suppurative otitis med ia without spontaneous rupture of eardrum Medical History vitamin D deficiency Medical History allergic rhinitis Medical History anxiety Medical History hyperlipidemia Medical History esophageal reflux Medical History Abnormal MRI, shoulder Medical History Abnormal ultrasound of uterus Surgical History tubal ligation 1988 Surgical History orthopedic surgery- carpal t unnel june 2009, ligament/tendons cut in index finger sometime in the s. Surgical History colonoscopy 04-28-15 Hospitalization History hospitalizations for surgeries only
--- OUTSIDE RECORDS SUMMARY | 2019-11-23 05:34 | XMS REPORT ---
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 Name Role Phone PACHECO Fuchs Unavailable PROBLEMS Type Condition ICD9-CM Code OUN66-OQ Code Onset Dates Condition S tatus SNOMED Code Problem Hematuria, unspecified type R31.9 Ac tive 53628055 Problem Abnormal glucose R73.09 Active 102 147356 Problem Abnormal renal ultrasound R93.429 Acti ve [id number] Problem Neuroforaminal stenosis of spine M99.89 Active [id number] Problem Essential hypertension I10 Active 56361685 Problem Mixed hyperlipidemia E78.2 Active 40427053 Problem Other chronic pain G89.29 Active 8 9864296 Problem Neck pain M54.2 Active 23567722 Problem Slow transit constipation K59.01 Acti ve 25096910 Problem Anxiety F41.9 Active 04321273 Problem Hypokalemia E87.6 Active 30979475 Problem Chronic pain due to trauma G89.21 Act juanis 614654555 Problem Seasonal allergies J30.2 Active 4 12979653 Problem Rhinosinusitis J32.9 Active 52037 4004 ALLERGIES No Information ENCOUNTERS Encounter Location Date Diagnosis [facility] [address] [facility] [id number] [address] [place] [phone] Jan, [facility] [address] [facility] [id number] [address] [place] [phone] Nov, [facility] [address] [facility] [id number] [address] [place] [phone] Oct, 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 [facility] [address] [facility] [id number] [address] [place] [phone] Oct, [facility] [address] [id number] [address] [place] [phone] Oct, Right flank pain R10.9 ; Low er abdominal pain R10.30 ; Slow transit constipation K59.01 and 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 [facility] [address] [id number] [address] [place] [phone] Oct, 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 [place] [address] [facility] [id number] [address] [place] [phone] Oct, 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 ; Screening breast examination Z12.39 and Other chronic pain G89.29 [place] [address] [facility] [id number] [address] [place] [phone] Sep, [place] [address] [facility] [id number] [address] [place] [phone] Sep, 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 [facility] [address] [facility] [id number] [address] [place] [phone] Sep, Encounter for laboratory luisa ting for COVID-19 virus V73.89 [place] [address] [facility] [id number] [address] [place] [phone] August, 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 [place] [address] [facility] [id number] [address] [place] [phone] August, Acute bacterial conjunctivit is of right eye H10.31 [facility] [address] [facility] [id number] [address] [place] [phone] August, Low back pain M54.5 ; Other chronic pain G89.29 and Dysuria R30.0 [facility] [address] [facility] [id number] [address] [place] [phone] August, [facility] [address] [facility] [id number] [address] [place] [phone] Jul, 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 [place] [address] [id number] [address] [place] [phone] 23 Jul, 2019 Allergic conjunctivitis of b oth eyes H10.13 [place] [address] [facility] [id number] [address] [place] [phone] 27 Jun, 2019 Hypokalemia E87.6 [place] [address] [facility] [id number] [address] [place] [phone] Jun, [place] [address] [facility] [id number] [address] [place] [phone] Jun, Neuroforaminal stenosis of s jose M99.89 [place] [address] [facility] [id number] [address] [place] [phone] 19 Jun, 2019 Lateral epicondylitis, left elbow M77.12 and Medial epicondylitis, left elbow M77.02 [place] [address] [place] [id number] [address] [place] [phone] 16 Jun, 2019 Foraminal stenosis of lumbar region M48.061 ; Segmental dysfunction of thoracic region M99.02 ; Segmental dysfunction of lumbar region M99.03 and Segmental dysfunction of sacral region M99.04 [place] [address] [place] [id number] [address] [place] [phone] May, Left elbow pain M25.522 [place] [address] [place] [id number] [address] [place] [phone] May, [place] [address] [place] [id number] [address] [place] [phone] May, Left elbow pain M25.522 [place] [address] [place] [id number] [address] [place] [phone] May, Neuroforaminal stenosis of s jose M99.89 [place] [address] [place] [id number] [address] [place] [phone] May, Rhinosinusitis J32.9 ; Left elbow pain M25.522 and Neck pain M54.2 [facility] [address] [id number] [address] [place] [phone] 14 May, 2019 Lateral epicondylitis of lef t elbow M77.12 [facility] [address] [id number] [address] [place] [phone] Apr, 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 [facility] [address] [id number] [address] [place] [phone] Apr, Essential hypertension I10 a nd Mixed hyperlipidemia E78.2 [facility] [address] [id number] [address] [place] [phone] Mar, 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 [facility] [address] [id number] [address] [place] [phone] Mar, Epicondylitis, lateral, left M77.12 [facility] [address] [id number] [address] [place] [phone] Mar, [facility] [address] [id number] [address] [place] [phone] Mar, 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 [facility] [address] [id number] [address] [place] [phone] Feb, 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 ; Essential hypertension I10 ; Mixed hyperlipidemia E78.2 ; Encounter for immunization Z23 and Seasonal allergies J30.2 [facility] [address] [id number] [address] [place] [phone] Jan, 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 [facility] [address] [id number] [address] [place] [phone] Dec, 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 [facility] [address] [id number] [address] [place] [phone] Dec, 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 [facility] [address] [id number] [address] [place] [phone] Nov, [facility] [address] [id number] [address] [place] [phone] Nov, 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 [facility] [address] [id number] [address] [place] [phone] Nov, Acute non-recurrent maxillar y sinusitis J01.00 [facility] [address] [id number] [address] [place] [phone] Oct, Hypokalemia E87.6 [facility] [address] [id number] [address] [place] [phone] Oct, Wasp sting, undetermined int ent, initial encounter T63.464A and Cellulitis of left lower extremity L03.116 [place] [address] [id number] [address] [place] [phone] Oct, Neuroforaminal stenosis of s jose M99.89 [place] [address] [id number] [address] [place] [phone] Sep, [facility] [address] [id number] [address] [place] [phone] Sep, [facility] [address] [id number] [address] [place] [phone] Sep, Routine screening for STI (s exually transmitted infection) Z11.3 [facility] [address] [id number] [address] [place] [phone] 14 Sep, 2018 Routine screening for STI (s exually transmitted infection) Z11.3 ; Well woman exam with routine gynecological exam Z01.419 and Breast cancer screening Z12.39 [place] [address] [id number] [address] [place] [phone] 10 Sep, 2018 Neuroforaminal stenosis of s jose M99.89 [facility] [address] [id number] [address] [place] [phone] August, 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 [facility] [address] [facility] [id number] [address] [place] [phone] August, 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 ; Chronic pain due to trauma G89.21 and Mixed hyperlipidemia E78.2 [facility] [address] [id number] [address] [place] [phone] Jul, Viral upper respiratory illn ess J06.9 and Acute non-recurrent frontal sinusitis J01.10 [facility] [address] [facility] [id number] [address] [place] [phone] Jul, Congestion of nasal sinus R0 9.81 [facility] [address] [facility] [id number] [address] [place] [phone] Jul, 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 and Essential hypertension I10 [facility] [address] [id number] [address] [place] [phone] May, 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 [facility] [address] [id number] [address] [place] [phone] May, [facility] [address] [facility] [id number] [address] [place] [phone] May, Congestion of nasal sinus R0 9.81 [facility] [address] [id number] [address] [place] [phone] May, [facility] [address] [id number] [address] [place] [phone] Apr, 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 [facility] [address] [id number] [address] [place] [phone] Apr, 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 and Chronic pain due to trauma G89.21 [facility] [address] [id number] [address] [place] [phone] Mar, UTI (urinary tract infection ) N39.0 [facility] [address] [id number] [address] [place] [id number] Mar, Vertigo R42 [facility] [address] [id number] [address] [place] [phone] Mar, Neuroforaminal stenosis of s jose M99.89 [facility] [address] [id number] [address] [place] [phone] Feb, Extensor tendon disruption M 67.89 [facility] [address] [id number] [address] [place] [phone] Feb, Neuroforaminal stenosis of s jose M99.89 and High risk medication use Z79.899 [place] [address] [id number] [address] [place] [phone] Jan, Hypokalemia E87.6 [facility] [address] [id number] [address] [place] [phone] Jan, Flank pain R10.9 and Acute r ight-sided low back pain without sciatica M54.5 [facility] [address] [id number] [address] [place] [phone] Jan, Hypokalemia E87.6 [facility] [address] [facility] [id number] [address] [place] [phone] Jan, [facility] [address] [id number] [address] [place] [phone] Jan, URI, acute J06.9 [facility] [address] [facility] [id number] [address] [place] [phone] 05 Jan, 2018 Neuroforaminal stenosis of s jose M99.89 [facility] [address] [facility] [id number] [address] [place] [phone] 13 Dec, 2017 Lateral epicondylitis, right elbow M77.11 [place] [address] [phone] 11 Dec, 2017 Allergic rhinitis due to monica rosalina, unspecified seasonality J30.1 and Allergic conjunctivitis of both eyes H10.13 [place] [address] [phone] 10 Dec, 2017 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 [place] [address] [address] 06 Dec, 2017 Mixed hyperlipidemia E78.2 [place] [address] [id number] 05 Dec, 2017 Abnormal glucose R73.09 ; Ab normal renal ultrasound R93.429 ; Dysuria R30.0 ; Cystitis without hematuria N30.90 ; Hypokalemia E87.6 ; Mixed hyperlipidemia E78.2 and Hematuria, unspecified type R31.9 [place] [address] [phone] Nov, Hypokalemia E87.6 ; Mixed hy perlipidemia E78.2 and Hematuria, unspecified type R31.9 [place] [address] [phone] Nov, [place] [address] [phone] Nov, Hypokalemia E87.6 [place] [address] [phone] Nov, [place] [address] [address] Nov, Abnormal renal ultrasound R9 3.429 [place] [address] [phone] Nov, Abnormal renal ultrasound R9 3.429 [place] [address] [phone] Nov, Hematuria, unspecified type R31.9 and Neuroforaminal stenosis of spine M99.89 [place] [address] [id number] [address] [place] [phone] Nov, Dysuria R30.0 [place] [address] [id number] [address] [place] [phone] Oct, Lateral epicondylitis, right elbow M77.11 [place] [address] [id number] [address] [place] [phone] Oct, 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 ; Visit for TB skin test Z11.1 and Essential hypertension I10 [place] [address] [id number] [address] [place] [phone] 16 Oct, 2017 [place] [address] [id number] [address] [place] [phone] Oct, 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 [place] [address] [id number] [address] [place] [phone] Oct, Visit for TB skin test Z11.1 [place] [address] [id number] [address] [place] [phone] 05 Oct, 2017 Cystitis without hematuria N 30.90 [place] [address] [id number] [address] [place] [phone] 28 Sep, 2017 Screening breast examination Z12.39 [place] [address] [id number] [address] [place] [phone] Sep, Dysuria R30.0 and Cystitis w ithout hematuria N30.90 [place] [address] [id number] [address] [place] [phone] 14 Sep, 2017 Essential hypertension I10 a nd 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 [place] [address] [id number] [address] [place] [phone] 04 Sep, 2017 Abnormal glucose R73.09 [place] [address] [id number] [address] [place] [phone] August, Lateral epicondylitis, right elbow M77.11 [place] [address] [id number] [address] [place] [phone] August, Screen for STD (sexually tra nsmitted disease) Z11.3 [place] [address] [id number] [address] [place] [phone] August, Neuroforaminal stenosis of s jose M99.89 ; Mixed hyperlipidemia E78.2 ; Elevated fasting glucose R73.01 ; Screening mammogram, encounter for Z12.31 and Encounter for well woman exam without gynecological exam Z00.00 [place] [address] [id number] [address] [place] [phone] August, Neuroforaminal stenosis of s jose M99.89 [place] [address] [facility] [id number] [address] [place] [id number] August, Essential hypertension I10 ; Hypokalemia E87.6 and Mixed hyperlipidemia E78.2 [place] [address] [id number] [address] [place] [phone] Jul, [place] [address] [facility] [id number] [address] [place] [phone] Jul, Neuroforaminal stenosis of ayla garcia M99.89 [place] [address] [facility] [id number] [address] [place] [phone] Jul, Lateral epicondylitis, right elbow M77.11 [place] [address] [id number] [address] [place] [phone] Jul, [place] [address] [facility] [id number] [address] [place] [phone] Jun, High ankle sprain of right l ower extremity, initial encounter S93.431A [place] [address] [facility] [id number] [address] [place] [phone] Jun, Essential hypertension I10 [place] [address] [id number] [address] [place] [phone] Jun, [place] [address] [facility] [id number] [address] [place] [phone] Jun, [place] [address] [facility] [id number] [address] [place] [id number] Jun, 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 [place] [address] [facility] [id number] [address] [place] [phone] Jun, Pain of right upper extremit y M79.601 and Essential hypertension I10 [place] [address] [facility] [id number] [address] [place] [phone] Jun, [place] [address] [place] [id number] [place] [phone] Jun, Dysuria R30.0 ; Acute cystit is with hematuria N30.01 and Screen for STD (sexually transmitted disease) Z11.3 [place] [address] [facility] [id number] [address] [place] [phone] May, Chronic pain due to trauma G 89.21 [place] [address] [facility] [id number] [address] [place] [phone] May, Essential hypertension I10 [place] [address] [facility] [id number] [address] [place] [phone] May, 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 [place] [address] [facility] [id number] [address] [place] [phone] Apr, Allergic reaction, initial e ncounter T78.40XA [place] [address] [facility] [id number] [address] [place] [phone] Apr, Low back pain, unspecified b ack pain laterality, unspecified chronicity, with sciatica presence unspecified M54.5 ; Acute cystitis with hematuria N30.01 ; 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 ; Bilateral acute serous otitis media, recurrence not specified H65.03 ; Mixed hyperlipidemia E78.2 ; Essential hypertension I10 ; Immunization counseling Z71.89 and Encounter for immunization Z23 [facility] [address] [id number] [address] [place] [phone] 08 Apr, 2017 Neck pain M54.2 [facility] [address] [id number] [address] [place] [phone] Mar, 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 [facility] [address] [id number] [address] [place] [phone] Mar, Pharyngitis due to other org anism J02.8 [place] [address] [facility] [id number] [address] [place] [phone] Feb, 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 [place] [address] [facility] [id number] [address] [place] [phone] Feb, UTI (urinary tract infection ) N39.0 [facility] [address] [facility] [id number] [address] [place] [phone] Feb, Recent urinary tract infecti on Z87.440 ; 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 ; Neck pain M54.2 ; Chronic pain due to trauma G89.21 and Recurrent UTI N39.0 [facility] [address] [id number] [address] [place] [phone] Feb, [facility] [address] [id number] [address] [place] [phone] Jan, 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 [facility] [address] [facility] [id number] [address] [place] [phone] Dec, 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 [facility] [address] [facility] [id number] [address] [place] [phone] 18 Dec, 2016 Acute seasonal allergic rhin itis due to pollen J30.1 [place] [address] [id number] [address] [place] [phone] Dec, [place] [address] [facility] [id number] [address] [place] [phone] Dec, Acute seasonal allergic rhin itis, unspecified trigger J30.2 ; Allergic conjunctivitis of both eyes H10.13 and Dysfunction of both eustachian tubes H69.83 [place] [address] [facility] [id number] [address] [place] [phone] Dec, [place] [address] [facility] [id number] [address] [place] [phone] Dec, Nevus D22.9 [place] [address] [facility] [id number] [address] [place] [phone] Nov, Chronic pain due to trauma G 89.21 and 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 [place] [address] [place] [id number] [address] [place] [phone] Nov, 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 ; Essential hypertension I10 ; Mixed hyperlipidemia E78.2 ; Hypokalemia E87.6 ; Neck pain M54.2 and Nevus D22.9 [place] [address] [facility] [id number] [address] [place] [phone] Oct, 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 [place] [address] [facility] [id number] [address] [place] [phone] Sep, 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 [place] [address] [facility] [id number] [address] [place] [phone] Sep, [place] [address] [address] [facility] [id number] [address] [place] [phone] August, [place] [address] [address] [facility] [id number] [address] [place] [phone] August, Neck pain M54.2 and Neurofor aminal stenosis of spine M99.89 [facility] [address] [id number] [address] [place] [phone] August, Routine gynecological examin ation Z01.419 and Screening breast examination Z12.39 [facility] [address] [id number] [address] [place] [id number] Jul, [facility] [address] [id number] [address] [place] [id number] Jul, [facility] [address] [id number] [address] [place] [phone] Jul, 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 [facility] [address] [id number] [address] [place] [phone] Jul, [facility] [address] [id number] [address] [place] [phone] Jul, Neuroforaminal stenosis of l umbar 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 [facility] [address] [id number] [address] [place] [id number] Jul, [facility] [address] [id number] [address] [place] [id number] Jul, [facility] [address] [id number] [address] [place] [id number] Jun, 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 [facility] [address] [id number] [address] [place] [phone] Jun, Uterine leiomyoma, unspecifi ed location D25.9 and Allergic reaction caused by a drug, initial encounter T78.40XA [facility] [address] [id number] [address] [place] [phone] Jun, [facility] [address] [id number] [address] [place] [phone] May, UTI symptoms R39.9 and Pain of right sacroiliac joint M53.3 [facility] [address] [facility] [id number] [address] [place] [phone] May, 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 [place] [address] [facility] [id number] [address] [place] [phone] May, [place] [address] [facility] [id number] [address] [place] [id number] May, Acute mucoid otitis media of left ear H65.112 and Acute non- recurrent maxillary sinusitis J01.00 [place] [address] [facility] [id number] [address] [place] [phone] May, Acute bacterial conjunctivit is of both eyes H10.33 ; Left arm pain M79.602 and Hypokalemia E87.6 [place] [address] [place] [id number] [address] [place] [id number] Apr, [place] [address] [facility] [id number] [address] [place] [phone] Apr, 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 ; Neck pain M54.2 ; Chronic pain due to trauma G89.21 ; Mixed hyperlipidemia E78.2 ; Essential hypertension I10 and Hypokalemia E87.6 [place] [address] [facility] [id number] [address] [place] [phone] Mar, Oral candidiasis B37.0 ; Nathaniel roforaminal stenosis of spine M99.89 ; Neck pain M54.2 and Chronic pain due to trauma G89.21 [place] [address] [facility] [id number] [address] [place] [phone] Feb, [place] [address] [facility] [id number] [address] [place] [phone] Feb, [place] [address] [facility] [id number] [address] [place] [phone] Feb, UTI (urinary tract infection ) N39.0 [place] [address] [facility] [id number] [address] [place] [phone] 09 Feb, 2016 Dysuria R30.0 [facility] [address] [id number] [address] [place] [phone] 08 Feb, 2016 Dysuria R30.0 [facility] [address] [id number] [address] [place] [phone] Feb, 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 ; Neck pain M54.2 ; Essential hypertension I10 ; Chronic pain due to trauma G89.21 ; Dysuria R30.0 ; Abnormal MRI, shoulder R93.8 and Acute cystitis without hematuria N30.00 [facility] [address] [id number] [address] [place] [phone] Jan, [facility] [address] [id number] [address] [place] [phone] Jan, [facility] [address] [id number] [address] [place] [phone] Jan, [facility] [address] [id number] [address] [place] [phone] Jan, Abnormal MRI R93.8 [facility] [address] [id number] [address] [place] [phone] Dec, [facility] [address] [id number] [address] [place] [id number] 15 Dec, 2015 Acute pain of left shoulder M25.512 [facility] [address] [id number] [address] [place] [phone] 09 Dec, 2015 [facility] [address] [id number] [address] [place] [phone] 08 Dec, 2015 [facility] [address] [id number] [address] [place] [phone] 07 Dec, 2015 Acute pain of left shoulder M25.512 [facility] [address] [id number] [address] [place] [phone] Nov, [facility] [address] [id number] [address] [place] [phone] Nov, 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 ; Neck pain M54.2 ; Abnormal mammogram R92.8 ; Essential hypertension I10 and Chronic pain due to trauma G89.21 [facility] [address] [id number] [address] [place] [phone] Nov, [facility] [address] [id number] [address] [place] [phone] Oct, Acute stress disorder F43.0 [facility] [address] [id number] [address] [place] [phone] Oct, [facility] [address] [id number] [address] [place] [phone] Oct, [facility] [address] [id number] [address] [place] [phone] Oct, [facility] [address] [id number] [address] [place] [phone] Sep, [facility] [address] [id number] [address] [place] [phone] August, [facility] [address] [id number] [address] [place] [phone] Jul, 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 ; Neck pain M54.2 ; Abnormal mammogram R92.8 and Essential hypertension I10 [facility] [address] [id number] [address] [place] [phone] Jul, [facility] [address] [id number] [address] [place] [phone] Jul, [facility] [address] [id number] [address] [place] [phone] Jul, Abnormal mammogram R92.8 [facility] [address] [id number] [address] [place] [phone] Jul, [facility] [address] [place] [id number] [address] [place] [phone] Jul, UTI (urinary tract infection ) N39.0 [place] [address] [phone] Jul, Dysuria R30.0 [place] [address] [place] [id number] [address] [place] [phone] Jun, [facility] [address] [place] [id number] [place] [phone] Jun, [place] [address] [place] [id number] [place] [phone] Jun, Hypokalemia E87.6 and Hematu martina R31.9 [place] [address] [place] [id number] [address] [place] [phone] Jun, Hypokalemia E87.6 [place] [address] [place] [id number] [address] [place] [phone] Jun, [place] [address] [phone] Jun, Hypokalemia E87.6 [place] [address] [place] [id number] [address] [place] [id number] Jun, Hypokalemia E87.6 [place] [address] [place] [id number] [address] [place] [phone] Jun, 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 ; Hypokalemia E87.6 ; Neck pain M54.2 ; Essential hypertension I10 ; Mixed hyperlipidemia E78.2 and Screening breast examination Z12.39 [place] [address] [place] [id number] [address] [place] [phone] Jun, Dysuria R30.0 ; UTI (urinary tract infection) N39.0 and Hematuria R31.9 [place] [address] [place] [id number] [address] [place] [phone] May, [facility] [address] [facility] [id number] [address] [place] [phone] 18 May, 2015 High risk sexual behavior Z7 2.51 ; Hypokalemia E87.6 ; Neuroforaminal stenosis of spine M99.89 ; Neck pain M54.2 ; Essential hypertension I10 ; Mixed hyperlipidemia E78.2 ; STD exposure Z20.2 and Concern about STD in female without diagnosis Z71.1 [facility] [address] [facility] [id number] [address] [place] [phone] 16 May, 2015 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 ; Neck pain M54.2 ; Hypokalemia E87.6 ; Essential hypertension I10 and Mixed hyperlipidemia E78.2 [facility] [address] [facility] [id number] [address] [place] [phone] 11 May, 2015 [facility] [address] [place] [id number] [address] [place] [phone] 08 May, 2015 High risk sexual behavior Z7 2.51 ; STD exposure Z20.2 and Concern about STD in female without diagnosis Z71.1 [facility] [address] [place] [id number] [address] [place] [phone] 05 May, 2015 [facility] [address] [facility] [id number] [address] [place] [phone] Apr, 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 ; Mixed hyperlipidemia E78.2 ; Essential hypertension I10 and Hypokalemia E87.6 [facility] [address] [facility] [id number] [address] [place] [phone] Mar, [place] [address] [place] [id number] [address] [place] [phone] Mar, Hypokalemia E87.6 [facility] [address] [facility] [id number] [address] [place] [phone] Mar, 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 ; Mixed hyperlipidemia E78.2 ; Neck pain M54.2 ; Essential hypertension I10 ; Abnormal fasting glucose R73.09 ; Hypokalemia E87.6 and Constipation K59.00 [place] [address] [facility] [id number] [address] [place] [phone] Feb, 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 ; Mixed hyperlipidemia E78.2 ; Neck pain M54.2 ; Essential hypertension I10 ; Abnormal fasting glucose R73.09 ; Hypokalemia E87.6 and Constipation K59.00 [place] [address] [facility] [id number] [address] [place] [phone] Feb, Elevated fasting blood sugar R73.01 [place] [address] [place] [id number] [address] [place] [phone] Feb, Elevated fasting blood sugar R73.01 [place] [address] [address] Feb, Hair loss L65.9 [place] [address] [place] [id number] [address] [place] [phone] Feb, Sinusitis J32.9 ; Essential hypertension I10 and Hair loss L65.9 [place] [address] [place] [id number] [address] [place] [phone] Jan, [place] [address] [place] [id number] [address] [place] [phone] Jan, Essential hypertension I10 ; Neuroforaminal stenosis of spine M99.89 ; Neck pain M54.2 ; Mixed hyperlipidemia E78.2 and Anxiety F41.9 [place] [address] [place] [id number] [address] [place] [phone] Jan, [place] [address] [place] [id number] [place] [phone] Jan, Mixed hyperlipidemia E78.2 ; Essential (primary) hypertension I10 ; Strain of muscle, fascia and tendon at neck level, subsequent encounter S16.1XXD and Tension-type headache, unspecified, not intractable G44.209 [facility] [address] [id number] [address] [place] [phone] Dec, Lumbar back pain 724.2 and N euroforaminal stenosis of spine 724.00 [facility] [address] [id number] [address] [place] [phone] Nov, [facility] [address] [id number] [address] [place] [phone] Nov, Lumbar back pain 724.2 and N euroforaminal stenosis of spine 724.00 [facility] [address] [id number] [address] [place] [phone] Nov, Edema 782.3 ; Lumbar back pa in 724.2 ; Essential hypertension, benign 401.1 ; Hyperlipemia 272.4 ; Neuroforaminal stenosis of spine 724.00 and Post-concussion headache 339.20 [facility] [address] [id number] [address] [place] [phone] Nov, [facility] [address] [id number] [address] [place] [phone] Nov, [facility] [address] [id number] [address] [place] [phone] Oct, Essential hypertension, sheridan gn 401.1 [facility] [address] [id number] [address] [place] [phone] Oct, Edema 782.3 ; Lumbar back pa in 724.2 ; Essential hypertension, benign 401.1 ; Hyperlipemia 272.4 ; Neuroforaminal stenosis of spine 724.00 and Post-concussion headache 339.20 [facility] [address] [id number] [address] [place] [phone] Oct, [facility] [address] [id number] [address] [place] [phone] Oct, Edema 782.3 [facility] [address] [id number] [address] [place] [phone] Oct, Lumbar back pain 724.2 [facility] [address] [id number] [address] [place] [phone] Oct, Cervicalgia 723.1 ; Lumbar b ack pain 724.2 and High risk medication use V58.69 [facility] [address] [id number] [address] [place] [phone] Sep, [facility] [address] [id number] [address] [place] [phone] Sep, Lumbar strain 847.2 [facility] [address] [id number] [address] [place] [phone] August, Edema 782.3 and Eustachian t ube dysfunction 381.81 [facility] [address] [id number] [address] [place] [phone] August, [facility] [address] [id number] [address] [place] [phone] August, Eustachian tube dysfunction 381.81 [facility] [address] [id number] [address] [place] [phone] Jul, Otalgia 388.70 and Otitis me jonathon 382.9 [facility] [address] [id number] [address] [place] [phone] Jul, [facility] [address] [id number] [address] [place] [phone] Jul, [facility] [address] [id number] [address] [place] [phone] Jul, [facility] [address] [id number] [address] [place] [phone] Jul, [facility] [address] [id number] [address] [place] [phone] Jul, [facility] [address] [id number] [address] [place] [phone] Jun, [facility] [address] [id number] [address] [place] [address], [place] [address] Jun, [facility] [address] [id number] [address] [place] [address], [place] [address] Jun, [facility] [address] [id number] [address] [place] [address], [place] [address] May, 2014 [facility] [address] [id number] [address] [place] [address], [place] [address] May, 2014 [facility] [address] [id number] [address] [place] [address], [place] [address] May, 2014 [facility] [address] [id number] [address] [place] [address], [place] [address] May, 2014 [facility] [address] [id number] [address] [place] [address], [place] [address] May, 2014 [facility] [address] [id number] [address] [place] [address], [place] [address] May, 2014 [facility] [address] [id number] [address] [place] [address], [place] [address] May, [facility] [address] [id number] [address] [place] [address], [place] [address] May, [facility] [address] [id number] [address] [place] [address], [place] [address] May, [facility] [address] [id number] [address] [place] [address], [place] [address] May, [facility] [address] [id number] [address] [place] [address], [place] [address] Apr, [facility] [address] [id number] [address] [place] [address], [place] [address] Apr, [facility] [address] [id number] [address] [place] [address], [place] [address] Apr, [facility] [address] [id number] [address] [place] [address], [place] [address] Apr, [facility] [address] [id number] [address] [place] [address], [place] [address] Apr, [facility] [address] [id number] [address] [place] [address], [place] [address] Apr, [facility] [address] [id number] [address] [place] [address], [place] [address] Apr, [facility] [address] [id number] [address] [place] [address], [place] [address] Apr, [facility] [address] [id number] [address] [place] [address], [place] [address] Apr, [facility] [address] [id number] [address] [place] [address], [place] [address] Apr, [facility] [address] [id number] [address] [place] [address], [place] [address] Apr, [facility] [address] [id number] [address] [place] [address], [place] [address] Apr, [facility] [address] [id number] [address] [place] [address], [place] [address] Apr, [facility] [address] [id number] [address] [place] [address], [place] [address] Apr, [facility] [address] [id number] [address] [place] [address], [place] [address] Apr, [facility] [address] [id number] [address] [place] [address], [place] [address] Mar, [facility] [address] [id number] [address] [place] [address], [place] [address] Mar, [facility] [address] [id number] [address] [place] [address], [place] [address] Mar, [facility] [address] [id number] [address] [place] [address], [place] [address] Mar, [facility] [address] [id number] [address] [place] [address], [place] [address] 07 Feb, 2014 [facility] [address] [id number] [address] [place] [address], [place] [address] Feb, [facility] [address] [id number] [address] [place] [address], [place] [address] Feb, [facility] [address] [id number] [address] [place] [address], [place] [address] Feb, [facility] [address] [id number] [address] [place] [address], [place] [address] Jan, [facility] [address] [id number] [address] [place] [address], [place] [address] Jan, [facility] [address] [id number] [address] [place] [address], [place] [address] Jan, [facility] [address] [id number] [address] [place] [address], [place] [address] Jan, [facility] [address] [id number] [address] [place] [address], [place] [address] Jan, [facility] [address] [id number] [address] [place] [address], [place] [address] Jan, [facility] [address] [id number] [address] [place] [address], [place] [address] Jan, [facility] [address] [id number] [address] [place] [address], [place] [address] Jan, [facility] [address] [id number] [address] [place] [address], [place] [address] Dec, [facility] [address] [id number] [address] [place] [address], [place] [address] Dec, [facility] [address] [id number] [address] [place] [address], [place] [address] 04 Dec, 2013 [facility] [address] [id number] [address] [place] [address], [place] [address] Dec, [facility] [address] [id number] [facility] [place] [address] Oct, [facility] [address] [id number] [address] [place] [address], [place] [address] Oct, [facility] [address] [id number] [address] [place] [address], [place] [address] Oct, [facility] [address] [id number] [address] [place] [address], [place] [address] Oct, 2013 [facility] [address] [id number] [address] [place] [address], [place] [address] Oct, [facility] [address] [id number] [address] [place] [address], [place] [address] Oct, [facility] [address] [id number] [address] [place] [address], [place] [address] Oct, [facility] [address] [id number] [address] [place] [address], [place] [address] Oct, [facility] [address] [id number] [address] [place] [address], [place] [address] Sep, [facility] [address] [id number] [address] [place] [address], [place] [address] Sep, [facility] [address] [id number] [address] [place] [address], [place] [address] Sep, [facility] [address] [id number] [address] [place] [address], [place] [address] Sep, [facility] [address] [id number] [address] [place] [address], [place] [address] Sep, [facility] [address] [id number] [address] [place] [address], [place] [address] Sep, [facility] [address] [id number] [address] [place] [address], [place] [address] Sep, [facility] [address] [id number] [address] [place] [address], [place] [address] Sep, [facility] [address] [id number] [address] [place] [address], [place] [address] Sep, [facility] [address] [id number] [address] [place] [address], [place] [address] Sep, [facility] [address] [id number] [address] [place] [address], [place] [address] August, [facility] [address] [id number] [address] [place] [address], [place] [address] August, [facility] [address] [id number] [address] [place] [address], [place] [address] August, [facility] [address] [id number] [address] [place] [address], [place] [address] August, [facility] [address] [id number] [address] [place] [address], [place] [address] August, [facility] [address] [id number] [address] [place] [address], [place] [address] August, [facility] [address] [id number] [address] [place] [address], [place] [address] August, [facility] [address] [id number] [address] [place] [address], [place] [address] August, [facility] [address] [id number] [address] [place] [address], [place] [address] August, [facility] [address] [id number] [address] [place] [address], [place] [address] August, [facility] [address] [id number] [address] [place] [address], [place] [address] August, [facility] [address] [id number] [address] [place] [address], [place] [address] August, [facility] [address] [id number] [address] [place] [address], [place] [address] Jul, [facility] [address] [id number] [address] [place] [address], [place] [address] Jul, [facility] [address] [id number] [address] [place] [address], [place] [address] Jul, [facility] [address] [id number] [address] [place] [address], [place] [address] Jul, [facility] [address] [id number] [address] [place] [address], [place] [address] Jul, [facility] [address] [id number] [address] [place] [address], [place] [address] Jul, [facility] [address] [id number] [address] [place] [address], [place] [address] Jun, [facility] [address] [id number] [address] [place] [address], [place] [address] Jun, [facility] [address] [id number] [address] [place] [address], [place] [address] May, [facility] [address] [id number] [address] [place] [address], [place] [address] May, [facility] [address] [id number] [address] [place] [address], [place] [address] Apr, [facility] [address] [id number] [address] [place] [address], [place] [address] Apr, [facility] [address] [id number] [address] [place] [address], [place] [address] Apr, [facility] [address] [id number] [address] [place] [address], [place] [address] Apr, [facility] [address] [id number] [address] [place] [address], [place] [address] Apr, [facility] [address] [id number] [address] [place] [address], [place] [address] Apr, [facility] [address] [id number] [address] [place] [address] Apr, [facility] [address] [id number] [address] [place] [address], [place] [address] Apr, [facility] [address] [id number] [address] [place] [address], [place] [address] Apr, [facility] [address] [id number] [address] [place] [address], [place] [address] Apr, [facility] [address] [id number] [address] [place] [address], [place] [address] Apr, [facility] [address] [id number] [address] [place] [address], [place] [address] Apr, [facility] [address] [id number] [address] [place] [address], [place] [address] Apr, [facility] [address] [id number] [address] [place] [address], [place] [address] Mar, [facility] [address] [id number] [address] [place] [address], [place] [address] Mar, [facility] [address] [id number] [address] [place] [address], [place] [address] Mar, [facility] [address] [id number] [address] [place] [address], [place] [address] Mar, [facility] [address] [id number] [address] [place] [address], [place] [address] Feb, [facility] [address] [id number] [address] [place] [address] Feb, [facility] [address] [id number] [address] [place] [address], [place] [address] Feb, [facility] [address] [id number] [address] [place] [address], [place] [address] Feb, [facility] [address] [id number] [address] [place] [address], [place] [address] 14 Jan, 2013 [facility] [address] [id number] [address] [place] [address], [place] [address] 14 Jan, 2013 [facility] [address] [id number] [address] [place] [address], [place] [address] 11 Jan, 2013 [facility] [address] [id number] [address] [place] [address], [place] [address] 11 Jan, 2013 [facility] [address] [id number] [address] [place] [address], [place] [address] 10 Jan, 2013 [facility] [address] [id number] [address] [place] [address], [place] [address] 10 Jan, 2013 [facility] [address] [id number] [address] [place] [address], [place] [address] Jan, [facility] [address] [id number] [address] [place] [address], [place] [address] 09 Jan, 2013 [facility] [address] [id number] [address] [place] [address], [place] [address] Jan, [facility] [address] [id number] [address] [place] [address], [place] [address] 26 Dec, 2012 [facility] [address] [id number] [address] [place] [address], [place] [address] 16 Dec, 2012 [facility] [address] [id number] [address] [place] [address], [place] [address] 16 Dec, 2012 [facility] [address] [id number] [address] [place] [address], [place] [address] 13 Dec, 2012 [facility] [address] [id number] [address] [place] [address], [place] [address] 17 Nov, 2012 [facility] [address] [id number] [address] [place] [address], [place] [address] 17 Nov, 2012 [facility] [address] [id number] [address] [place] [address], [place] [address] 14 Nov, 2012 [facility] [address] [id number] [address] [place] [address] [address] Nov, [facility] [address] [id number] [address] [place] [address], [place] [address] Oct, [facility] [address] [id number] [address] [place] [address], [place] [address] Sep, [facility] [address] [id number] [address] [place] [address], [place] [address] August, [facility] [address] [id number] [address] [place] [address], [place] [address] August, [facility] [address] [id number] [address] [place] [address], [place] [address] August, [facility] [address] [id number] [address] [place] [address], [place] [address] August, [facility] [address] [id number] [address] [place] [address], [place] [address] August, [facility] [address] [id number] [address] [place] [address], [place] [address] August, [facility] [address] [id number] [address] [place] [address], [place] [address] August, [facility] [address] [id number] [address] [place] [address], [place] [address] August, [facility] [address] [id number] [address] [place] [address], [place] [address] August, [facility] [address] [id number] [address] [place] [address], [place] [address] August, [facility] [address] [id number] [address] [place] [address], [place] [address] August, [facility] [address] [id number] [address] [place] [address], [place] [address] August, [facility] [address] [id number] [address] [place] [address], [place] [address] Jul, [facility] [address] [id number] [address] [place] [address], [place] [address] 20 Jul, 2012 [facility] [address] [id number] [address] [place] [address], [place] [address] 18 Jul, 2012 [facility] [address] [id number] [address] [place] [address], [place] [address] 15 Jul, 2012 [facility] [address] [id number] [address] [place] [address], [place] [address] Jul, [facility] [address] [id number] [address] [place] [address], [place] [address] Jul, [facility] [address] [id number] [address] [place] [address], [place] [address] Jul, [facility] [address] [id number] [address] [place] [address], [place] [address] Jul, [facility] [address] [id number] [address] [place] [address], [place] [address] Jul, [facility] [address] [id number] [address] [place] [address], [place] [address] Jul, [facility] [address] [id number] [address] [place] [address], [place] [address] Jul, [facility] [address] [id number] [address] [place] [address], [place] [address] Jun, [facility] [address] [id number] [address] [place] [address], [place] [address] Jun, [facility] [address] [id number] [address] [place] [address], [place] [address] Jun, [facility] [address] [id number] [address] [place] [address], [place] [address] Jun, [facility] [address] [id number] [address] [place] [address], [place] [address] 28 May, 2012 [facility] [address] [id number] [address] [place] [address], [place] [address] 14 May, 2012 [facility] [address] [id number] [address] [place] [address], [place] [address] 05 May, 2012 [facility] [address] [id number] [address] [place] [address], [place] [address] 04 May, 2012 [facility] [address] [id number] [address] [place] [address], [place] [address] 04 May, 2012 [facility] [address] [id number] [address] [place] [address], [place] [address] May, [facility] [address] [id number] [address] [place] [address], [place] [address] Apr, [facility] [address] [id number] [address] [place] [address], [place] [address] Apr, [facility] [address] [id number] [address] [place] [address], [place] [address] Apr, [facility] [address] [id number] [address] [place] [address], [place] [address] Apr, [facility] [address] [id number] [address] [place] [address], [place] [address] 15 Mar, 2012 [facility] [address] [id number] [address] [place] [address], [place] [address] 14 Mar, 2012 [facility] [address] [id number] [address] [place] [address], [place] [address] 14 Mar, 2012 [facility] [address] [id number] [address] [place] [address], [place] [address] 14 Mar, 2012 [facility] [address] [id number] [address] [place] [address], [place] [address] 14 Mar, 2012 [facility] [address] [id number] [address] [place] [address], [place] [address] 06 Mar, 2012 [facility] [address] [id number] [address] [place] [address], [place] [address] 06 Mar, 2012 [facility] [address] [id number] [address] [place] [address], [place] [address] Feb, [facility] [address] [id number] [address] [place] [address], [place] [address] Feb, [facility] [address] [id number] [address] [place] [address], [place] [address] Feb, [facility] [address] [id number] [address] [place] [address], [place] [address] Feb, [facility] [address] [id number] [address] [place] [address], [place] [address] Jan, [facility] [address] [id number] [address] [place] [address], [place] [address] Jan, [facility] [address] [id number] [address] [place] [address], [place] [address] Jan, [facility] [address] [id number] [address] [place] [address], [place] [address] Jan, [facility] [address] [id number] [address] [place] [address], [place] [address] Jan, [facility] [address] [id number] [address] [place] [address], [place] [address] Jan, [facility] [address] [id number] [address] [place] [address], [place] [address] Dec, [facility] [address] [id number] [address] [place] [address], [place] [address] Dec, [facility] [address] [id number] [address] [place] [address], [place] [address] Nov, [facility] [address] [id number] [address] [place] [address], [place] [address] Sep, [facility] [address] [id number] [address] [place] [address], [place] [address] August, [facility] [address] [id number] [address] [place] [address], [place] [address] August, [facility] [address] [id number] [address] [place] [address], [place] [address] August, [facility] [address] [id number] [address] [place] [address], [place] [address] August, [facility] [address] [id number] [address] [place] [address], [place] [address] August, [facility] [address] [id number] [address] [place] [address], [place] [address] Jun, [facility] [address] [id number] [address] [place] [address], [place] [address] Jun, [facility] [address] [id number] [address] [place] [address], [place] [address] Apr, [facility] [address] [id number] [address] [place] [address], [place] [address] Apr, [facility] [address] [id number] [address] [place] [address], [place] [address] Mar, [facility] [address] [id number] [address] [place] [address], [place] [address] Feb, [facility] [address] [id number] [address] [place] [address], [place] [address] Feb, [facility] [address] [id number] [address] [place] [address], [place] [address] Feb, [facility] [address] [id number] [address] [place] [address], [place] [address] 17 Jan, 2011 [facility] [address] [id number] [address] [place] [address], [place] [address] 15 Jan, 2011 [facility] [address] [id number] [address] [place] [address], [place] [address] 15 Jan, 2011 [facility] [address] [id number] [address] [place] [address], [place] [address] 14 Jan, 2011 [facility] [address] [id number] [address] [place] [address], [place] [address] 15 May, 2010 [facility] [address] [facility] [id number] [address] [place] [address] Mar, [facility] [address] [facility] [id number] [address] [place] [address] Oct, [facility] [address] [facility] [id number] [address] [place] [address] Sep, [facility] [address] [facility] [id number] [address] [place] [address] Mar, [facility] [address] [facility] [id number] [address] [place] [address] Jan, [facility] [address] [facility] [id number] [address] [place] [address] Jan, [facility] [address] [facility] [id number] [address] [place] [address] May, IMMUNIZATIONS No Known Immunizations SOCIAL HISTORY Never Assessed REASON FOR VISIT PLAN OF CARE VITAL SIGNS Height 62 in 2012-08-14 Weight 170.31 lbs 2012-08-14 Temperature 97.8 degrees Fahrenheit 2012-08-14 Heart Rate 80 bpm 2012-08-14 Respiratory Rate 18 bpm 2012-08-14 Blood pressure systolic 126 mmHg 2012-08-14 Blood pressure diastolic 82 mmHg 2012-08-14 MEDICATIONS Unknown Medications RESULTS No Results PROCEDURES Procedure Date Ordered Result Body Site HIV-1/HIV-2, SINGLE ASSAY August 14, 2012 BLOOD SEROLOGY, QUALITATIVE August 14, 2012 HEPATITIS C AB TEST August 14, 2012 URINALYSIS, AUTO, W/O SCOPE August 14, 2012 VENIPUNCT, ROUTINE* August 14, 2012 INSTRUCTIONS MEDICATIONS ADMINISTERED No Known Medications MEDICAL (GENERAL) HISTORY Type Description Date Medical History hypertension Medical History Colposcopy with loop electro de excision of the cervix was performed 06/2012, mild squamous atypia (no definite dyplasia). Performed at [facility] Dr. Joy. Medical History Acute [...]
--- OUTSIDE RECORDS SUMMARY | 2019-11-23 05:34 | XMS REPORT ---
Author Author Liana Fuchs Organization [facility] Address [address] [place] [address] Care Team Providers Care Meal Attendant Name Role Phone PACHECO Fuchs Unavailable PROBLEMS Type Condition ICD9-CM Code LLU96-EG Code Onset Dates Condition S tatus SNOMED Code Problem Hematuria, unspecified type R31.9 Ac tive 19713516 Problem Abnormal glucose R73.09 Active 102 516656 Problem Abnormal renal ultrasound R93.429 Acti ve [id number] Problem Neuroforaminal stenosis of spine M99.89 Active 941238816143 Problem Essential hypertension I10 Active 67696417 Problem Mixed hyperlipidemia E78.2 Active 27321753 Problem Other chronic pain G89.29 Active 8 2620208 Problem Neck pain M54.2 Active 06376187 Problem Slow transit constipation K59.01 Acti ve 31668267 Problem Anxiety F41.9 Active 11077222 Problem Hypokalemia E87.6 Active 28577222 Problem Chronic pain due to trauma G89.21 Act juanis 256278983 Problem Seasonal allergies J30.2 Active 4 79176240 Problem Rhinosinusitis J32.9 Active 15136 4004 ALLERGIES No Information ENCOUNTERS Encounter Location Date Diagnosis [facility] [address] [facility] [id number] [address] [place] [phone] Jan, [facility] [address] [facility] [id number] [address] [place] [phone] Nov, [facility] [address] [facility] [id number] [address] [place] [phone] Oct, 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 [facility] [address] [facility] [id number] [address] [place] [phone] Oct, [facility] [address] [id number] [address] [place] [id number] Oct, Right flank pain R10.9 ; Low er abdominal pain R10.30 ; Slow transit constipation K59.01 and 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 [facility] [address] [id number] [address] [place] [phone] Oct, 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 [place] [address] [facility] [id number] [address] [place] [phone] Oct, 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 ; Screening breast examination Z12.39 and Other chronic pain G89.29 [place] [address] [facility] [id number] [address] [place] [phone] Sep, [place] [address] [facility] [id number] [address] [place] [phone] Sep, 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 [facility] [address] [facility] [id number] [address] [place] [phone] Sep, Encounter for laboratory luisa ting for COVID-19 virus V73.89 [place] [address] [facility] [id number] [address] [place] [phone] August, 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 [place] [address] [facility] [id number] [address] [place] [phone] August, Acute bacterial conjunctivit is of right eye H10.31 [facility] [address] [facility] [id number] [address] [place] [phone] August, Low back pain M54.5 ; Other chronic pain G89.29 and Dysuria R30.0 [facility] [address] [facility] [id number] [address] [place] [phone] August, [facility] [address] [facility] [id number] [address] [place] [phone] Jul, 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 [place] [address] [id number] [address] [place] [phone] 23 Jul, 2019 Allergic conjunctivitis of b oth eyes H10.13 [place] [address] [facility] [id number] [address] [place] [phone] 27 Jun, 2019 Hypokalemia E87.6 [place] [address] [facility] [id number] [address] [place] [phone] Jun, [place] [address] [facility] [id number] [address] [place] [phone] Jun, Neuroforaminal stenosis of s jose M99.89 [place] [address] [facility] [id number] [address] [place] [phone] 19 Jun, 2019 Lateral epicondylitis, left elbow M77.12 and Medial epicondylitis, left elbow M77.02 [place] [address] [place] [id number] [address] [place] [id number] 16 Jun, 2019 Foraminal stenosis of lumbar region M48.061 ; Segmental dysfunction of thoracic region M99.02 ; Segmental dysfunction of lumbar region M99.03 and Segmental dysfunction of sacral region M99.04 [place] [address] [place] [id number] [address] [place] [phone] May, Left elbow pain M25.522 [place] [address] [place] [id number] [address] [place] [phone] May, [place] [address] [place] [id number] [address] [place] [phone] May, Left elbow pain M25.522 [place] [address] [place] [id number] [address] [place] [phone] May, Neuroforaminal stenosis of s jose M99.89 [place] [address] [place] [id number] [address] [place] [phone] May, Rhinosinusitis J32.9 ; Left elbow pain M25.522 and Neck pain M54.2 [facility] [address] [id number] [address] [place] [phone] 14 May, 2019 Lateral epicondylitis of lef t elbow M77.12 [facility] [address] [id number] [address] [place] [phone] Apr, 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 [facility] [address] [id number] [address] [place] [phone] Apr, Essential hypertension I10 a nd Mixed hyperlipidemia E78.2 [facility] [address] [id number] [address] [place] [phone] Mar, 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 [facility] [address] [id number] [address] [place] [phone] Mar, Epicondylitis, lateral, left M77.12 [facility] [address] [id number] [address] [place] [phone] Mar, [facility] [address] [id number] [address] [place] [phone] Mar, 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 [facility] [address] [id number] [address] [place] [phone] Feb, 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 ; Essential hypertension I10 ; Mixed hyperlipidemia E78.2 ; Encounter for immunization Z23 and Seasonal allergies J30.2 [facility] [address] [id number] [address] [place] [phone] Jan, 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 [facility] [address] [id number] [address] [place] [phone] Dec, 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 [facility] [address] [id number] [address] [place] [phone] Dec, 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 [facility] [address] [id number] [address] [place] [phone] Nov, [facility] [address] [id number] [address] [place] [phone] Nov, 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 [facility] [address] [id number] [address] [place] [phone] Nov, Acute non-recurrent maxillar y sinusitis J01.00 [facility] [address] [id number] [address] [place] [phone] Oct, Hypokalemia E87.6 [facility] [address] [id number] [address] [place] [phone] Oct, Wasp sting, undetermined int ent, initial encounter T63.464A and Cellulitis of left lower extremity L03.116 [place] [address] [id number] [address] [place] [phone] Oct, Neuroforaminal stenosis of s jose M99.89 [place] [address] [id number] [address] [place] [phone] Sep, [facility] [address] [id number] [address] [place] [phone] Sep, [facility] [address] [id number] [address] [place] [phone] Sep, Routine screening for STI (s exually transmitted infection) Z11.3 [facility] [address] [id number] [address] [place] [phone] 14 Sep, 2018 Routine screening for STI (s exually transmitted infection) Z11.3 ; Well woman exam with routine gynecological exam Z01.419 and Breast cancer screening Z12.39 [place] [address] [id number] [address] [place] [phone] 10 Sep, 2018 Neuroforaminal stenosis of s jose M99.89 [facility] [address] [id number] [address] [place] [phone] August, 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 [facility] [address] [facility] [id number] [address] [place] [phone] August, 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 ; Chronic pain due to trauma G89.21 and Mixed hyperlipidemia E78.2 [facility] [address] [id number] [address] [place] [phone] Jul, Viral upper respiratory illn ess J06.9 and Acute non-recurrent frontal sinusitis J01.10 [facility] [address] [facility] [id number] [address] [place] [phone] Jul, Congestion of nasal sinus R0 9.81 [facility] [address] [facility] [id number] [address] [place] [phone] Jul, 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 and Essential hypertension I10 [facility] [address] [id number] [address] [place] [phone] May, 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 [facility] [address] [id number] [address] [place] [phone] May, [facility] [address] [facility] [id number] [address] [place] [phone] May, Congestion of nasal sinus R0 9.81 [facility] [address] [id number] [address] [place] [phone] May, [facility] [address] [id number] [address] [place] [phone] Apr, 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 [facility] [address] [id number] [address] [place] [phone] Apr, 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 and Chronic pain due to trauma G89.21 [facility] [address] [id number] [address] [place] [phone] Mar, UTI (urinary tract infection ) N39.0 [facility] [address] [id number] [address] [place] [phone] Mar, Vertigo R42 [facility] [address] [id number] [address] [place] [phone] Mar, Neuroforaminal stenosis of s jose M99.89 [facility] [address] [id number] [address] [place] [phone] Feb, Extensor tendon disruption M 67.89 [facility] [address] [id number] [address] [place] [phone] Feb, Neuroforaminal stenosis of s jose M99.89 and High risk medication use Z79.899 [place] [address] [id number] [address] [place] [phone] Jan, Hypokalemia E87.6 [facility] [address] [id number] [address] [place] [phone] Jan, Flank pain R10.9 and Acute r ight-sided low back pain without sciatica M54.5 [facility] [address] [id number] [address] [place] [phone] Jan, Hypokalemia E87.6 [facility] [address] [facility] [id number] [address] [place] [id number] Jan, [facility] [address] [id number] [address] [place] [phone] Jan, URI, acute J06.9 [facility] [address] [facility] [id number] [address] [place] [phone] 05 Jan, 2018 Neuroforaminal stenosis of s jose M99.89 [facility] [address] [facility] [id number] [address] [place] [phone] 13 Dec, 2017 Lateral epicondylitis, right elbow M77.11 [place] [address] [id number] 11 Dec, 2017 Allergic rhinitis due to monica rosalina, unspecified seasonality J30.1 and Allergic conjunctivitis of both eyes H10.13 [place] [address] [phone] 10 Dec, 2017 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 [place] [address] [address] 06 Dec, 2017 Mixed hyperlipidemia E78.2 [place] [address] [phone] 05 Dec, 2017 Abnormal glucose R73.09 ; Ab normal renal ultrasound R93.429 ; Dysuria R30.0 ; Cystitis without hematuria N30.90 ; Hypokalemia E87.6 ; Mixed hyperlipidemia E78.2 and Hematuria, unspecified type R31.9 [place] [address] [phone] Nov, Hypokalemia E87.6 ; Mixed hy perlipidemia E78.2 and Hematuria, unspecified type R31.9 [place] [address] [address] Nov, [place] [address] [phone] Nov, Hypokalemia E87.6 [place] [address] [address] Nov, [place] [address] [phone] Nov, Abnormal renal ultrasound R9 3.429 [place] [address] [phone] Nov, Abnormal renal ultrasound R9 3.429 [place] [address] [phone] Nov, Hematuria, unspecified type R31.9 and Neuroforaminal stenosis of spine M99.89 [place] [address] [id number] [address] [place] [phone] Nov, Dysuria R30.0 [place] [address] [id number] [address] [place] [phone] Oct, Lateral epicondylitis, right elbow M77.11 [place] [address] [id number] [address] [place] [phone] Oct, 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 ; Visit for TB skin test Z11.1 and Essential hypertension I10 [place] [address] [id number] [address] [place] [phone] 16 Oct, 2017 [place] [address] [id number] [address] [place] [phone] Oct, 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 [place] [address] [id number] [address] [place] [id number] Oct, Visit for TB skin test Z11.1 [place] [address] [id number] [address] [place] [phone] 05 Oct, 2017 Cystitis without hematuria N 30.90 [place] [address] [id number] [address] [place] [id number] 28 Sep, 2017 Screening breast examination Z12.39 [place] [address] [id number] [address] [place] [phone] Sep, Dysuria R30.0 and Cystitis w ithout hematuria N30.90 [place] [address] [id number] [address] [place] [phone] 14 Sep, 2017 Essential hypertension I10 a nd Neuroforaminal stenosis of spine M99.89 [place] [address] [id number] [address] [place] [phone] 04 Sep, 2017 Abnormal glucose R73.09 [place] [address] [id number] [address] [place] [phone] August, Lateral epicondylitis, right elbow M77.11 [place] [address] [id number] [address] [place] [phone] August, Screen for STD (sexually tra nsmitted disease) Z11.3 [place] [address] [id number] [address] [place] [phone] August, Neuroforaminal stenosis of s jose M99.89 ; Mixed hyperlipidemia E78.2 ; Elevated fasting glucose R73.01 ; Screening mammogram, encounter for Z12.31 and Encounter for well woman exam without gynecological exam Z00.00 [place] [address] [id number] [address] [place] [phone] August, Neuroforaminal stenosis of s jose M99.89 [place] [address] [facility] [id number] [address] [place] [phone] August, Essential hypertension I10 ; Hypokalemia E87.6 and Mixed hyperlipidemia E78.2 [place] [address] [id number] [address] [place] [phone] Jul, [place] [address] [facility] [id number] [address] [place] [phone] Jul, Neuroforaminal stenosis of ayla garcia M99.89 [place] [address] [facility] [id number] [address] [place] [phone] Jul, Lateral epicondylitis, right elbow M77.11 [place] [address] [id number] [address] [place] [phone] Jul, [place] [address] [facility] [id number] [address] [place] [phone] Jun, High ankle sprain of right l ower extremity, initial encounter S93.431A [place] [address] [facility] [id number] [address] [place] [phone] Jun, Essential hypertension I10 [place] [address] [id number] [address] [place] [phone] Jun, [place] [address] [facility] [id number] [address] [place] [phone] Jun, [place] [address] [facility] [id number] [address] [place] [phone] Jun, 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 [place] [address] [facility] [id number] [address] [place] [phone] Jun, Pain of right upper extremit y M79.601 and Essential hypertension I10 [place] [address] [facility] [id number] [address] [place] [address] Jun, [place] [address] [place] [id number] [place] [phone] Jun, Dysuria R30.0 ; Acute cystit is with hematuria N30.01 and Screen for STD (sexually transmitted disease) Z11.3 [place] [address] [facility] [id number] [address] [place] [phone] May, Chronic pain due to trauma G 89.21 [place] [address] [facility] [id number] [address] [place] [address] May, Essential hypertension I10 [place] [address] [facility] [id number] [address] [place] [phone] May, 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 [place] [address] [facility] [id number] [address] [place] [phone] Apr, Allergic reaction, initial e ncounter T78.40XA [place] [address] [facility] [id number] [address] [place] [phone] Apr, Low back pain, unspecified b ack pain laterality, unspecified chronicity, with sciatica presence unspecified M54.5 ; Acute cystitis with hematuria N30.01 ; Neuroforaminal stenosis of spine M99.89 ; Bilateral acute serous otitis media, recurrence not specified H65.03 ; Mixed hyperlipidemia E78.2 ; Essential hypertension I10 ; Immunization counseling Z71.89 and Encounter for immunization Z23 [facility] [address] [id number] [address] [place] [phone] 08 Apr, 2017 Neck pain M54.2 [facility] [address] [id number] [address] [place] [phone] Mar, 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 [facility] [address] [id number] [address] [place] [phone] Mar, Pharyngitis due to other org anism J02.8 [place] [address] [facility] [id number] [address] [place] [id number] Feb, 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 [place] [address] [facility] [id number] [address] [place] [phone] Feb, UTI (urinary tract infection ) N39.0 [facility] [address] [facility] [id number] [address] [place] [phone] Feb, Recent urinary tract infecti on Z87.440 ; Neuroforaminal stenosis of spine M99.89 ; Neck pain M54.2 ; Chronic pain due to trauma G89.21 and Recurrent UTI N39.0 [facility] [address] [id number] [address] [place] [phone] Feb, [facility] [address] [id number] [address] [place] [phone] Jan, 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 [facility] [address] [facility] [id number] [address] [place] [address] Dec, 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 [facility] [address] [facility] [id number] [address] [place] [id number] 18 Dec, 2016 Acute seasonal allergic rhin itis due to pollen J30.1 [place] [address] [id number] [address] [place] [phone] Dec, [place] [address] [facility] [id number] [address] [place] [phone] Dec, Acute seasonal allergic rhin itis, unspecified trigger J30.2 ; Allergic conjunctivitis of both eyes H10.13 and Dysfunction of both eustachian tubes H69.83 [place] [address] [facility] [id number] [address] [place] [phone] Dec, [place] [address] [facility] [id number] [address] [place] [phone] Dec, Nevus D22.9 [place] [address] [address] [facility] [id number] [address] [place] [phone] Nov, Chronic pain due to trauma G 89.21 and Neuroforaminal stenosis of spine M99.89 [place] [address] [address] [place] [id number] [address] [place] [id number] Nov, 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 ; Essential hypertension I10 ; Mixed hyperlipidemia E78.2 ; Hypokalemia E87.6 ; Neck pain M54.2 and Nevus D22.9 [place] [address] [address] [facility] [id number] [address] [place] [phone] Oct, 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 [place] [address] [address] [facility] [id number] [address] [place] [phone] Sep, 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 [place] [address] [address] [facility] [id number] [address] [place] [phone] Sep, [place] [address] [address] [facility] [id number] [address] [place] [phone] August, [place] [address] [address] [facility] [id number] [address] [place] [phone] August, Neck pain M54.2 and Neurofor aminal stenosis of spine M99.89 [facility] [address] [id number] [address] [place] [phone] August, Routine gynecological examin ation Z01.419 and Screening breast examination Z12.39 [facility] [address] [id number] [address] [place] [id number] Jul, [facility] [address] [id number] [address] [place] [phone] Jul, [facility] [address] [id number] [address] [place] [phone] Jul, 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 [facility] [address] [id number] [address] [place] [phone] Jul, [facility] [address] [id number] [address] [place] [phone] Jul, Neuroforaminal stenosis of l umbar 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 [facility] [address] [id number] [address] [place] [id number] Jul, [facility] [address] [id number] [address] [place] [id number] Jul, [facility] [address] [id number] [address] [place] [phone] Jun, 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 [facility] [address] [id number] [address] [place] [phone] Jun, Uterine leiomyoma, unspecifi ed location D25.9 and Allergic reaction caused by a drug, initial encounter T78.40XA [facility] [address] [id number] [address] [place] [phone] Jun, [facility] [address] [id number] [address] [place] [phone] May, UTI symptoms R39.9 and Pain of right sacroiliac joint M53.3 [facility] [address] [facility] [id number] [address] [place] [phone] May, 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 [place] [address] [address] [facility] [id number] [address] [place] [phone] May, [place] [address] [address] [facility] [id number] [address] [place] [phone] May, Acute mucoid otitis media of left ear H65.112 and Acute non- recurrent maxillary sinusitis J01.00 [place] [address] [address] [facility] [id number] [address] [place] [phone] May, Acute bacterial conjunctivit is of both eyes H10.33 ; Left arm pain M79.602 and Hypokalemia E87.6 [place] [address] [address] [place] [id number] [address] [place] [id number] Apr, [place] [address] [address] [facility] [id number] [address] [place] [phone] Apr, 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 ; Neck pain M54.2 ; Chronic pain due to trauma G89.21 ; Mixed hyperlipidemia E78.2 ; Essential hypertension I10 and Hypokalemia E87.6 [place] [address] [address] [facility] [id number] [address] [place] [phone] Mar, Oral candidiasis B37.0 ; Nathaniel roforaminal stenosis of spine M99.89 ; Neck pain M54.2 and Chronic pain due to trauma G89.21 [place] [address] [address] [facility] [id number] [address] [place] [phone] Feb, [place] [address] [address] [facility] [id number] [address] [place] [phone] Feb, [place] [address] [address] [facility] [id number] [address] [place] [phone] Feb, UTI (urinary tract infection ) N39.0 [place] [address] [address] [facility] [id number] [address] [place] [id number] 09 Feb, 2016 Dysuria R30.0 [facility] [address] [id number] [address] [place] [phone] 08 Feb, 2016 Dysuria R30.0 [facility] [address] [id number] [address] [place] [id number] Feb, 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 ; Neck pain M54.2 ; Essential hypertension I10 ; Chronic pain due to trauma G89.21 ; Dysuria R30.0 ; Abnormal MRI, shoulder R93.8 and Acute cystitis without hematuria N30.00 [facility] [address] [id number] [address] [place] [phone] Jan, [facility] [address] [id number] [address] [place] [phone] Jan, [facility] [address] [id number] [address] [place] [phone] Jan, [facility] [address] [id number] [address] [place] [phone] Jan, Abnormal MRI R93.8 [facility] [address] [id number] [address] [place] [phone] Dec, [facility] [address] [id number] [address] [place] [id number] 15 Dec, 2015 Acute pain of left shoulder M25.512 [facility] [address] [id number] [address] [place] [phone] 09 Dec, 2015 [facility] [address] [id number] [address] [place] [phone] 08 Dec, 2015 [facility] [address] [id number] [address] [place] [phone] 07 Dec, 2015 Acute pain of left shoulder M25.512 [facility] [address] [id number] [address] [place] [phone] Nov, [facility] [address] [id number] [address] [place] [phone] Nov, 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 ; Neck pain M54.2 ; Abnormal mammogram R92.8 ; Essential hypertension I10 and Chronic pain due to trauma G89.21 [facility] [address] [id number] [address] [place] [phone] Nov, [facility] [address] [id number] [address] [place] [phone] Oct, Acute stress disorder F43.0 [facility] [address] [id number] [address] [place] [phone] Oct, [facility] [address] [id number] [address] [place] [phone] Oct, [facility] [address] [id number] [address] [place] [phone] Oct, [facility] [address] [id number] [address] [place] [phone] Sep, [facility] [address] [id number] [address] [place] [phone] August, [facility] [address] [id number] [address] [place] [phone] Jul, 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 ; Neck pain M54.2 ; Abnormal mammogram R92.8 and Essential hypertension I10 [facility] [address] [id number] [address] [place] [phone] Jul, [facility] [address] [id number] [address] [place] [id number] Jul, [facility] [address] [id number] [address] [place] [phone] Jul, Abnormal mammogram R92.8 [facility] [address] [id number] [address] [place] [phone] Jul, [facility] [address] [place] [id number] [address] [place] [phone] Jul, UTI (urinary tract infection ) N39.0 [place] [address] [id number] Jul, Dysuria R30.0 [place] [address] [address] [place] [id number] [address] [place] [id number] Jun, [facility] [address] [place] [id number] [place] [phone] Jun, [place] [address] [address] [place] [id number] [place] [address] Jun, Hypokalemia E87.6 and Hematu martina R31.9 [place] [address] [address] [place] [id number] [address] [place] [phone] Jun, Hypokalemia E87.6 [place] [address] [address] [place] [id number] [address] [place] [phone] Jun, [place] [address] [phone] Jun, Hypokalemia E87.6 [place] [address] [address] [place] [id number] [address] [place] [id number] Jun, Hypokalemia E87.6 [place] [address] [address] [place] [id number] [address] [place] [address] Jun, 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 ; Hypokalemia E87.6 ; Neck pain M54.2 ; Essential hypertension I10 ; Mixed hyperlipidemia E78.2 and Screening breast examination Z12.39 [place] [address] [address] [place] [id number] [address] [place] [phone] Jun, Dysuria R30.0 ; UTI (urinary tract infection) N39.0 and Hematuria R31.9 [place] [address] [address] [place] [id number] [address] [place] [phone] May, [facility] [address] [facility] [id number] [address] [place] [phone] 18 May, 2015 High risk sexual behavior Z7 2.51 ; Hypokalemia E87.6 ; Neuroforaminal stenosis of spine M99.89 ; Neck pain M54.2 ; Essential hypertension I10 ; Mixed hyperlipidemia E78.2 ; STD exposure Z20.2 and Concern about STD in female without diagnosis Z71.1 [facility] [address] [facility] [id number] [address] [place] [phone] 16 May, 2015 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 ; Neck pain M54.2 ; Hypokalemia E87.6 ; Essential hypertension I10 and Mixed hyperlipidemia E78.2 [facility] [address] [facility] [id number] [address] [place] [phone] 11 May, [address] 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 ; Mixed hyperlipidemia E78.2 ; Essential hypertension I10 and Hypokalemia E87.6 [facility] [address] [facility] [id number] [address] [place] [phone] Mar, [place] [address] [address] [place] [id number] [address] [place] [phone] Mar, Hypokalemia E87.6 [facility] [address] [facility] [id number] [address] [place] [phone] Mar, 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 ; Mixed hyperlipidemia E78.2 ; Neck pain M54.2 ; Essential hypertension I10 ; Abnormal fasting glucose R73.09 ; Hypokalemia E87.6 and Constipation K59.00 [place] [address] [facility] [id number] [address] [place] [phone] Feb, 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 ; Mixed hyperlipidemia E78.2 ; Neck pain M54.2 ; Essential hypertension I10 ; Abnormal fasting glucose R73.09 ; Hypokalemia E87.6 and Constipation K59.00 [place] [address] [address] [facility] [id number] [address] [place] [phone] Feb, Elevated fasting blood sugar R73.01 [place] [address] [address] [place] [id number] [address] [place] [phone] Feb, Elevated fasting blood sugar R73.01 [place] [address] [phone] Feb, Hair loss L65.9 [place] [address] [address] [place] [id number] [address] [place] [phone] Feb, Sinusitis J32.9 ; Essential hypertension I10 and Hair loss L65.9 [place] [address] [address] [place] [id number] [address] [place] [phone] Jan, [place] [address] [address] [place] [id number] [address] [place] [id number] Jan, Essential hypertension I10 ; Neuroforaminal stenosis of spine M99.89 ; Neck pain M54.2 ; Mixed hyperlipidemia E78.2 and Anxiety F41.9 [place] [address] [place] [id number] [address] [place] [phone] Jan, [place] [address] [address] [place] [id number] [place] [phone] Jan, Mixed hyperlipidemia E78.2 ; Essential (primary) hypertension I10 ; Strain of muscle, fascia and tendon at neck level, subsequent encounter S16.1XXD and Tension-type headache, unspecified, not intractable G44.209 [facility] [address] [id number] [address] [place] [phone] Dec, Lumbar back pain 724.2 and N euroforaminal stenosis of spine 724.00 [facility] [address] [id number] [address] [place] [phone] Nov, [facility] [address] [id number] [address] [place] [phone] Nov, Lumbar back pain 724.2 and N euroforaminal stenosis of spine 724.00 [facility] [address] [id number] [address] [place] [phone] Nov, Edema 782.3 ; Lumbar back pa in 724.2 ; Essential hypertension, benign 401.1 ; Hyperlipemia 272.4 ; Neuroforaminal stenosis of spine 724.00 and Post-concussion headache 339.20 [facility] [address] [id number] [address] [place] [phone] Nov, [facility] [address] [id number] [address] [place] [phone] Nov, [facility] [address] [id number] [address] [place] [phone] Oct, Essential hypertension, sheridan gn 401.1 [facility] [address] [id number] [address] [place] [phone] Oct, Edema 782.3 ; Lumbar back pa in 724.2 ; Essential hypertension, benign 401.1 ; Hyperlipemia 272.4 ; Neuroforaminal stenosis of spine 724.00 and Post-concussion headache 339.20 [facility] [address] [id number] [address] [place] [phone] Oct, [facility] [address] [id number] [address] [place] [phone] Oct, Edema 782.3 [facility] [address] [id number] [address] [place] [id number] Oct, Lumbar back pain 724.2 [facility] [address] [id number] [address] [place] [phone] Oct, Cervicalgia 723.1 ; Lumbar b ack pain 724.2 and High risk medication use V58.69 [facility] [address] [id number] [address] [place] [phone] Sep, [facility] [address] [id number] [address] [place] [phone] Sep, Lumbar strain 847.2 [facility] [address] [id number] [address] [place] [phone] August, Edema 782.3 and Eustachian t ube dysfunction 381.81 [facility] [address] [id number] [address] [place] [id number] August, [facility] [address] [id number] [address] [place] [phone] August, Eustachian tube dysfunction 381.81 [facility] [address] [id number] [address] [place] [phone] Jul, Otalgia 388.70 and Otitis me jonathon 382.9 [facility] [address] [id number] [address] [place] [phone] Jul, [facility] [address] [id number] [address] [place] [id number] Jul, [facility] [address] [id number] [address] [place] [phone] Jul, [facility] [address] [id number] [address] [place] [phone] Jul, [facility] [address] [id number] [address] [place] [phone] Jul, [facility] [address] [id number] [address] [place] [phone] Jun, [facility] [address] [id number] [address] [place] [address], [place] [address] Jun, [facility] [address] [id number] [address] [place] [address], [place] [address] Jun, [facility] [address] [id number] [address] [place] [address], [place] [address] May, 2014 [facility] [address] [id number] [address] [place] [address], [place] [address] May, 2014 [facility] [address] [id number] [address] [place] [address], [place] [address] May, 2014 [facility] [address] [id number] [address] [place] [address], [place] [address] May, 2014 [facility] [address] [id number] [address] [place] [address], [place] [address] May, 2014 [facility] [address] [id number] [address] [place] [address], [place] [address] May, 2014 [facility] [address] [id number] [address] [place] [address], [place] [address] May, [facility] [address] [id number] [address] [place] [address], [place] [address] May, [facility] [address] [id number] [address] [place] [address], [place] [address] May, [facility] [address] [id number] [address] [place] [address], [place] [address] May, [facility] [address] [id number] [address] [place] [address], [place] [address] Apr, [facility] [address] [id number] [address] [place] [address], [place] [address] Apr, [facility] [address] [id number] [address] [place] [address], [place] [address] Apr, [facility] [address] [id number] [address] [place] [address], [place] [address] Apr, [facility] [address] [id number] [address] [place] [address], [place] [address] Apr, [facility] [address] [id number] [address] [place] [address], [place] [address] Apr, [facility] [address] [id number] [address] [place] [address], [place] [address] Apr, [facility] [address] [id number] [address] [place] [address], [place] [address] Apr, [facility] [address] [id number] [address] [place] [address], [place] [address] Apr, [facility] [address] [id number] [address] [place] [address], [place] [address] Apr, [facility] [address] [id number] [address] [place] [address], [place] [address] Apr, [facility] [address] [id number] [address] [place] [address], [place] [address] Apr, [facility] [address] [id number] [address] [place] [address], [place] [address] Apr, [facility] [address] [id number] [address] [place] [address], [place] [address] Apr, [facility] [address] [id number] [address] [place] [address], [place] [address] Apr, [facility] [address] [id number] [address] [place] [address], [place] [address] Mar, [facility] [address] [id number] [address] [place] [address], [place] [address] Mar, [facility] [address] [id number] [address] [place] [address], [place] [address] Mar, [facility] [address] [id number] [address] [place] [address], [place] [address] Mar, [facility] [address] [id number] [address] [place] [address], [place] [address] 07 Feb, 2014 [facility] [address] [id number] [address] [place] [address], [place] [address] Feb, [facility] [address] [id number] [address] [place] [address], [place] [address] Feb, [facility] [address] [id number] [address] [place] [address], [place] [address] Feb, [facility] [address] [id number] [address] [place] [address], [place] [address] Jan, [facility] [address] [id number] [address] [place] [address], [place] [address] Jan, [facility] [address] [id number] [address] [place] [address], [place] [address] Jan, [facility] [address] [id number] [address] [place] [address], [place] [address] Jan, [facility] [address] [id number] [address] [place] [address], [place] [address] Jan, [facility] [address] [id number] [address] [place] [address], [place] [address] Jan, [facility] [address] [id number] [address] [place] [address], [place] [address] Jan, [facility] [address] [id number] [address] [place] [address], [place] [address] Jan, [facility] [address] [id number] [address] [place] [address], [place] [address] Dec, [facility] [address] [id number] [address] [place] [address], [place] [address] Dec, [facility] [address] [id number] [address] [place] [address], [place] [address] 04 Dec, 2013 [facility] [address] [id number] [address] [place] [address], [place] [address] Dec, [facility] [address] [id number] [facility] [place] [address] Oct, [facility] [address] [id number] [address] [place] [address], [place] [address] Oct, [facility] [address] [id number] [address] [place] [address], [place] [address] Oct, [facility] [address] [id number] [address] [place] [address], [place] [address] Oct, 2013 [facility] [address] [id number] [address] [place] [address], [place] [address] Oct, [facility] [address] [id number] [address] [place] [address], [place] [address] Oct, [facility] [address] [id number] [address] [place] [address], [place] [address] Oct, [facility] [address] [id number] [address] [place] [address], [place] [address] Oct, [facility] [address] [id number] [address] [place] [address], [place] [address] Sep, [facility] [address] [id number] [address] [place] [address], [place] [address] Sep, [facility] [address] [id number] [address] [place] [address], [place] [address] Sep, [facility] [address] [id number] [address] [place] [address], [place] [address] Sep, [facility] [address] [id number] [address] [place] [address], [place] [address] Sep, [facility] [address] [id number] [address] [place] [address], [place] [address] Sep, [facility] [address] [id number] [address] [place] [address], [place] [address] Sep, [facility] [address] [id number] [address] [place] [address], [place] [address] Sep, [facility] [address] [id number] [address] [place] [address], [place] [address] Sep, [facility] [address] [id number] [address] [place] [address], [place] [address] Sep, [facility] [address] [id number] [address] [place] [address], [place] [address] August, [facility] [address] [id number] [address] [place] [address], [place] [address] August, [facility] [address] [id number] [address] [place] [address], [place] [address] August, [facility] [address] [id number] [address] [place] [address], [place] [address] August, [facility] [address] [id number] [address] [place] [address], [place] [address] August, [facility] [address] [id number] [address] [place] [address], [place] [address] August, [facility] [address] [id number] [address] [place] [address], [place] [address] August, [facility] [address] [id number] [address] [place] [address], [place] [address] August, [facility] [address] [id number] [address] [place] [address], [place] [address] August, [facility] [address] [id number] [address] [place] [address], [place] [address] August, [facility] [facility] [address] [id number] [address] [place] [address], [place] [address] August, [facility] [address] [id number] [address] [place] [address], [place] [address] August, [facility] [address] [id number] [address] [place] [address], [place] [address] Jul, [facility] [address] [id number] [address] [place] [address], [place] [address] Jul, [facility] [address] [id number] [address] [place] [address], [place] [address] Jul, [facility] [address] [id number] [address] [place] [address], [place] [address] Jul, [facility] [address] [id number] [address] [place] [address], [place] [address] Jul, [facility] [address] [id number] [address] [place] [address], [place] [address] Jul, [facility] [address] [id number] [address] [place] [address], [place] [address] Jun, [facility] [address] [id number] [address] [place] [address], [place] [address] Jun, [facility] [address] [id number] [address] [place] [address], [place] [address] May, [facility] [address] [id number] [address] [place] [address], [place] [address] May, [facility] [address] [id number] [address] [place] [address], [place] [address] Apr, [facility] [address] [id number] [address] [place] [address], [place] [address] Apr, [facility] [address] [id number] [address] [place] [address], [place] [address] Apr, [facility] [address] [id number] [address] [place] [address], [place] [address] Apr, [facility] [address] [id number] [address] [place] [address], [place] [address] Apr, [facility] [address] [id number] [address] [place] [address], [place] [address] Apr, [facility] [address] [id number] [address] [place] [address] Apr, [facility] [address] [id number] [address] [place] [address], [place] [address] Apr, [facility] [address] [id number] [address] [place] [address], [place] [address] Apr, [facility] [address] [id number] [address] [place] [address], [place] [address] Apr, [facility] [address] [id number] [address] [place] [address], [place] [address] Apr, [facility] [address] [id number] [address] [place] [address], [place] [address] Apr, [facility] [address] [id number] [address] [place] [address], [place] [address] Apr, [facility] [address] [id number] [address] [place] [address], [place] [address] Mar, [facility] [address] [id number] [address] [place] [address], [place] [address] Mar, [facility] [address] [id number] [address] [place] [address], [place] [address] Mar, [facility] [address] [id number] [address] [place] [address], [place] [address] Mar, [facility] [address] [id number] [address] [place] [address], [place] [address] Feb, [facility] [address] [id number] [address] [place] [address] Feb, [facility] [address] [id number] [address] [place] [address], [place] [address] Feb, [facility] [address] [id number] [address] [place] [address], [place] [address] Feb, [facility] [address] [id number] [address] [place] [address], [place] [address] 14 Jan, 2013 [facility] [address] [id number] [address] [place] [address], [place] [address] 14 Jan, 2013 [facility] [address] [id number] [address] [place] [address], [place] [address] 11 Jan, 2013 [facility] [address] [id number] [address] [place] [address], [place] [address] 11 Jan, 2013 [facility] [address] [id number] [address] [place] [address], [place] [address] 10 Jan, 2013 [facility] [address] [id number] [address] [place] [address], [place] [address] 10 Jan, 2013 [facility] [address] [id number] [address] [place] [address], [place] [address] Jan, [facility] [address] [id number] [address] [place] [address], [place] [address] 09 Jan, 2013 [facility] [address] [id number] [address] [place] [address], [place] [address] Jan, [facility] [address] [id number] [address] [place] [address], [place] [address] 26 Dec, 2012 [facility] [address] [id number] [address] [place] [address], [place] [address] 16 Dec, 2012 [facility] [address] [id number] [address] [place] [address], [place] [address] 16 Dec, 2012 [facility] [address] [id number] [address] [place] [address], [place] [address] 13 Dec, 2012 [facility] [address] [id number] [address] [place] [address], [place] [address] 17 Nov, 2012 [facility] [address] [id number] [address] [place] [address], [place] [address] 17 Nov, 2012 [facility] [address] [id number] [address] [place] [address], [place] [address] 14 Nov, 2012 [facility] [address] [id number] [address] [place] [address] [address] Nov, [facility] [address] [id number] [address] [place] [address], [place] [address] Oct, [facility] [address] [id number] [address] [place] [address], [place] [address] Sep, [facility] [address] [id number] [address] [place] [address], [place] [address] August, [facility] [address] [id number] [address] [place] [address], [place] [address] August, [facility] [address] [id number] [address] [place] [address], [place] [address] August, [facility] [address] [id number] [address] [place] [address], [place] [address] August, [facility] [address] [id number] [address] [place] [address], [place] [address] August, [facility] [address] [id number] [address] [place] [address], [place] [address] August, [facility] [address] [id number] [address] [place] [address], [place] [address] August, [facility] [address] [id number] [address] [place] [address], [place] [address] August, [facility] [address] [id number] [address] [place] [address], [place] [address] August, [facility] [address] [id number] [address] [place] [address], [place] [address] August, [facility] [address] [id number] [address] [place] [address], [place] [address] August, [facility] [address] [id number] [address] [place] [address], [place] [address] August, [facility] [address] [id number] [address] [place] [address], [place] [address] Jul, [facility] [address] [id number] [address] [place] [address], [place] [address] 20 Jul, 2012 [facility] [address] [id number] [address] [place] [address], [place] [address] 18 Jul, 2012 [facility] [address] [id number] [address] [place] [address], [place] [address] 15 Jul, 2012 [facility] [address] [id number] [address] [place] [address], [place] [address] Jul, [facility] [address] [id number] [address] [place] [address], [place] [address] Jul, [facility] [address] [id number] [address] [place] [address], [place] [address] Jul, [facility] [address] [id number] [address] [place] [address], [place] [address] Jul, [facility] [address] [id number] [address] [place] [address], [place] [address] Jul, [facility] [address] [id number] [address] [place] [address], [place] [address] Jul, [facility] [address] [id number] [address] [place] [address], [place] [address] Jul, [facility] [address] [id number] [address] [place] [address], [place] [address] Jun, [facility] [address] [id number] [address] [place] [address], [place] [address] Jun, [facility] [address] [id number] [address] [place] [address], [place] [address] Jun, [facility] [address] [id number] [address] [place] [address], [place] [address] Jun, [facility] [address] [id number] [address] [place] [address], [place] [address] 28 May, 2012 [facility] [address] [id number] [address] [place] [address], [place] [address] 14 May, 2012 [facility] [address] [id number] [address] [place] [address], [place] [address] 05 May, 2012 [facility] [address] [id number] [address] [place] [address], [place] [address] 04 May, 2012 [facility] [address] [id number] [address] [place] [address], [place] [address] 04 May, 2012 [facility] [address] [id number] [address] [place] [address], [place] [address] May, [facility] [address] [id number] [address] [place] [address], [place] [address] Apr, [facility] [address] [id number] [address] [place] [address], [place] [address] Apr, [facility] [address] [id number] [address] [place] [address], [place] [address] Apr, [facility] [address] [id number] [address] [place] [address], [place] [address] Apr, [facility] [address] [id number] [address] [place] [address], [place] [address] 15 Mar, 2012 [facility] [address] [id number] [address] [place] [address], [place] [address] 14 Mar, 2012 [facility] [address] [id number] [address] [place] [address], [place] [address] 14 Mar, 2012 [facility] [address] [id number] [address] [place] [address], [place] [address] 14 Mar, 2012 [facility] [address] [id number] [address] [place] [address], [place] [address] 14 Mar, 2012 [facility] [address] [id number] [address] [place] [address], [place] [address] 06 Mar, 2012 [facility] [address] [id number] [address] [place] [address], [place] [address] 06 Mar, 2012 [facility] [address] [id number] [address] [place] [address], [place] [address] Feb, [facility] [address] [id number] [address] [place] [address], [place] [address] Feb, [facility] [address] [id number] [address] [place] [address], [place] [address] Feb, [facility] [address] [id number] [address] [place] [address], [place] [address] Feb, [facility] [address] [id number] [address] [place] [address], [place] [address] Jan, [facility] [address] [id number] [address] [place] [address], [place] [address] Jan, [facility] [address] [id number] [address] [place] [address], [place] [address] Jan, [facility] [address] [id number] [address] [place] [address], [place] [address] Jan, [facility] [address] [id number] [address] [place] [address], [place] [address] Jan, [facility] [address] [id number] [address] [place] [address], [place] [address] Jan, [facility] [address] [id number] [address] [place] [address], [place] [address] Dec, [facility] [address] [id number] [address] [place] [address], [place] [address] Dec, [facility] [address] [id number] [address] [place] [address], [place] [address] Nov, [facility] [address] [id number] [address] [place] [address], [place] [address] Sep, [facility] [address] [id number] [address] [place] [address], [place] [address] August, [facility] [address] [id number] [address] [place] [address], [place] [address] August, [facility] [address] [id number] [address] [place] [address], [place] [address] August, [facility] [address] [id number] [address] [place] [address], [place] [address] August, [facility] [address] [id number] [address] [place] [address], [place] [address] August, [facility] [address] [id number] [address] [place] [address], [place] [address] Jun, [facility] [address] [id number] [address] [place] [address], [place] [address] Jun, [facility] [address] [id number] [address] [place] [address], [place] [address] Apr, [facility] [address] [id number] [address] [place] [address], [place] [address] Apr, [facility] [address] [id number] [address] [place] [address], [place] [address] Mar, [facility] [address] [id number] [address] [place] [address], [place] [address] Feb, [facility] [address] [id number] [address] [place] [address], [place] [address] Feb, [facility] [address] [id number] [address] [place] [address], [place] [address] Feb, [facility] [address] [id number] [address] [place] [address], [place] [address] 17 Jan, 2011 [facility] [address] [id number] [address] [place] [address], [place] [address] 15 Jan, 2011 [facility] [address] [id number] [address] [place] [address], [place] [address] 15 Jan, 2011 [facility] [address] [id number] [address] [place] [address], [place] [address] 14 Jan, 2011 [facility] [address] [id number] [address] [place] [address], [place] [address] 15 May, 2010 [facility] [address] [facility] [id number] [address] [place] [address] Mar, [facility] [address] [facility] [id number] [address] [place] [address] Oct, [facility] [address] [facility] [id number] [address] [place] [address] Sep, [facility] [address] [facility] [id number] [address] [place] [address] Mar, [facility] [address] [facility] [id number] [address] [place] [address] Jan, [facility] [address] [facility] [id number] [address] [place] [address] Jan, [facility] [address] [facility] [id number] [address] [place] [address] May, IMMUNIZATIONS No Known Immunizations SOCIAL HISTORY Never Assessed REASON FOR VISIT PLAN OF CARE VITAL SIGNS Height 62 in 2012-09-05 Weight 168 lbs 2012-09-05 Temperature 98.4 degrees Fahrenheit 2012-09-05 Heart Rate 72 bpm 2012-09-05 Respiratory Rate 14 bpm 2012-09-05 Blood pressure systolic 122 mmHg 2012-09-05 Blood pressure diastolic 72 mmHg 2012-09-05 MEDICATIONS Unknown Medications RESULTS No Results PROCEDURES Procedure Date Ordered Result Body Site URINALYSIS, AUTO, W/O SCOPE September 05, 2012 INSTRUCTIONS MEDICATIONS ADMINISTERED No Known Medications MEDICAL (GENERAL) HISTORY Type Description Date Medical History hypertension Medical History Colposcopy with loop electro de excision of the cervix was performed 06/2012, mild squamous atypia (no definite dyplasia). Performed at [facility] Dr. Joy. Medical History Acute suppurative [...]
--- OUTSIDE RECORDS SUMMARY | 2019-11-23 05:35 | XMS REPORT ---
Author Author Liana Coe Doctor Organization [facility] Address Unknown Phone Unavailable Care Team Providers Care Computer Builder Name Role Phone Migration, Doctor Unavailable Unavailable PROBLEMS Type Condition ICD9-CM Code UTA38-IA Code Onset Dates Condition S tatus SNOMED Code Problem Hematuria, unspecified type R31.9 Ac tive 64302363 Problem Abnormal glucose R73.09 Active 102 653569 Problem Abnormal renal ultrasound R93.429 Acti ve [id number] Problem Neuroforaminal stenosis of spine M99.89 Active [id number] Problem Essential hypertension I10 Active 96125858 Problem Mixed hyperlipidemia E78.2 Active 78602308 Problem Other chronic pain G89.29 Active 8 7376516 Problem Neck pain M54.2 Active 65596001 Problem Slow transit constipation K59.01 Acti ve 47855177 Problem Anxiety F41.9 Active 57741191 Problem Hypokalemia E87.6 Active 93030171 Problem Chronic pain due to trauma G89.21 Act juanis 731406381 Problem Seasonal allergies J30.2 Active 4 87416023 Problem Rhinosinusitis J32.9 Active 30958 4004 ALLERGIES No Information ENCOUNTERS Encounter Location Date Diagnosis [facility] [address] [facility] [id number] [address] [place] [phone] Jan, [facility] [address] [facility] [id number] [address] [place] [address] Nov, [facility] [address] [facility] [id number] [address] [place] [address] Oct, 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 [facility] [address] [facility] [id number] [address] [place] [address] Oct, [facility] [address] [facility] [id number] [address] [place] [address] Oct, Right flank pain R10.9 ; Low er abdominal pain R10.30 ; Slow transit constipation K59.01 and Neuroforaminal stenosis of spine M99.89 [place] [address] [facility] [id number] [address] [place] [address] Oct, 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 [place] [address] [facility] [id number] [address] [place] [address] Oct, 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 ; Screening breast examination Z12.39 and Other chronic pain G89.29 [place] [address] [facility] [id number] [address] [place] [address] Sep, [place] [address] [facility] [id number] [address] [place] [address] Sep, 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 [facility] [place] [address] [address] [facility] [id number] [address] [place] [address] Sep, Encounter for laboratory luisa tinkristin for COVID-19 virus V73.89 [place] [address] [facility] [id number] [address] [place] [address] August, 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 [place] [address] [facility] [id number] [address] [place] [address] August, Acute bacterial conjunctivit is of right eye H10.31 [facility] [address] [facility] [id number] [address] [place] [address] August, Low back pain M54.5 ; Other chronic pain G89.29 and Dysuria R30.0 [place] [address] [facility] [id number] [address] [place] [address] August, [place] [address] [facility] [id number] [address] [place] [address] Jul, 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 [place] [address] [facility] [id number] [address] [place] [address] Jul, Allergic conjunctivitis of b oth eyes H10.13 [place] [address] [id number] [address] [place] [address] Jun, Hypokalemia E87.6 [facility] [address] [id number] [address] [place] [address] Jun, [place] [address] [id number] [address] [place] [address] Jun, Neuroforaminal stenosis of s jose M99.89 [place] [address] [id number] [address] [place] [address] Jun, Lateral epicondylitis, left elbow M77.12 and Medial epicondylitis, left elbow M77.02 [place] [address] [id number] [address] [place] [address] 16 Jun, 2019 Foraminal stenosis of lumbar region M48.061 ; Segmental dysfunction of thoracic region M99.02 ; Segmental dysfunction of lumbar region M99.03 and Segmental dysfunction of sacral region M99.04 [place] [address] [id number] [address] [place] [address] May, Left elbow pain M25.522 [place] [address] [id number] [address] [place] [address] May, [place] [address] [id number] [address] [place] [address] May, Left elbow pain M25.522 [place] [address] [id number] [address] [place] [address] May, 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 [place] [address] [facility] [id number] [address] [place] [address] May, Rhinosinusitis J32.9 ; Left elbow pain M25.522 and Neck pain M54.2 [place] [address] [id number] [address] [place] [address] 14 May, 2019 Lateral epicondylitis of lef t elbow M77.12 [facility] [address] [id number] [address] [place] [address] Apr, 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 [facility] [address] [id number] [address] [place] [address] Apr, Essential hypertension I10 a nd Mixed hyperlipidemia E78.2 [facility] [address] [id number] [address] [place] [address] Mar, 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 [facility] [address] [id number] [address] [place] [address] Mar, Epicondylitis, lateral, left M77.12 [facility] [address] [id number] [address] [place] [address] Mar, [facility] [address] [id number] [address] [place] [address] Mar, 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 [facility] [address] [id number] [address] [place] [address] Feb, 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 ; Essential hypertension I10 ; Mixed hyperlipidemia E78.2 ; Encounter for immunization Z23 and Seasonal allergies J30.2 [facility] [address] [id number] [address] [place] [address] Jan, 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 [facility] [address] [id number] [address] [place] [address] Dec, 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 [facility] [address] [id number] [address] [place] [address] Dec, 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 [facility] [address] [id number] [address] [place] [address] Nov, [facility] [address] [id number] [address] [place] [address] Nov, 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 [facility] [address] [id number] [address] [place] [address] Nov, Acute non-recurrent maxillar y sinusitis J01.00 [facility] [address] [id number] [address] [place] [address] Oct, Hypokalemia E87.6 [facility] [address] [id number] [address] [place] [address] Oct, Wasp sting, undetermined int ent, initial encounter T63.464A and Cellulitis of left lower extremity L03.116 [place] [address] [id number] [address] [place] [address] Oct, 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 [place] [address] [id number] [address] [place] [address] Sep, [place] [address] [id number] [address] [place] [address] Sep, [facility] [address] [id number] [address] [place] [address] Sep, Routine screening for STI (s exually transmitted infection) Z11.3 [place] [address] [id number] [address] [place] [address] Sep, Routine screening for STI (s exually transmitted infection) Z11.3 ; Well woman exam with routine gynecological exam Z01.419 and Breast cancer screening Z12.39 [place] [address] [id number] [address] [place] [address] Sep, 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 [facility] [address] [id number] [address] [place] [address] August, 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 [facility] [address] [id number] [address] [place] [address] August, 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 ; Chronic pain due to trauma G89.21 and Mixed hyperlipidemia E78.2 [facility] [address] [id number] [address] [place] [address] Jul, Viral upper respiratory illn ess J06.9 and Acute non-recurrent frontal sinusitis J01.10 [facility] [address] [id number] [address] [place] [address] Jul, Congestion of nasal sinus R0 9.81 [facility] [address] [id number] [address] [place] [address] Jul, 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 and Essential hypertension I10 [facility] [address] [id number] [address] [place] [address] May, 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 [facility] [address] [id number] [address] [place] [address] May, [facility] [address] [id number] [address] [place] [address] May, Congestion of nasal sinus R0 9.81 [facility] [address] [id number] [address] [place] [address] May, [facility] [address] [id number] [address] [place] [address] Apr, 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 [facility] [address] [id number] [address] [place] [address] Apr, 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 and Chronic pain due to trauma G89.21 [facility] [address] [id number] [address] [place] [phone] Mar, UTI (urinary tract infection ) N39.0 [facility] [address] [id number] [address] [place] [phone] 07 Mar, 2018 Vertigo R42 [facility] [address] [id number] [address] [place] [address] Mar, Neuroforaminal stenosis of s jose M99.89 [facility] [address] [id number] [address] [place] [phone] Feb, Extensor tendon disruption M 67.89 [facility] [address] [id number] [address] [place] [phone] Feb, Neuroforaminal stenosis of s jose M99.89 and High risk medication use Z79.899 [facility] [address] [id number] [address] [place] [phone] Jan, Hypokalemia E87.6 [facility] [address] [facility] [id number] [address] [place] [address] Jan, Flank pain R10.9 and Acute r ight-sided low back pain without sciatica M54.5 [facility] [address] [id number] [address] [place] [address] Jan, Hypokalemia E87.6 [facility] [address] [facility] [id number] [address] [place] [address] Jan, [facility] [address] [facility] [id number] [address] [place] [address] Jan, URI, acute J06.9 [facility] [address] [facility] [id number] [address] [place] [phone] 05 Jan, 2018 Neuroforaminal stenosis of s jose M99.89 [facility] [address] [facility] [id number] [address] [place] [address] 13 Dec, 2017 Lateral epicondylitis, right elbow M77.11 [facility] [address] [facility] [id number] [address] [place] [address] Dec, Allergic rhinitis due to monica rosalina, unspecified seasonality J30.1 and Allergic conjunctivitis of both eyes H10.13 [place] [address] [address] Dec, 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 [place] [address] [address] Dec, Mixed hyperlipidemia E78.2 [place] [address] [address] Dec, Abnormal glucose R73.09 ; Ab normal renal ultrasound R93.429 ; Dysuria R30.0 ; Cystitis without hematuria N30.90 ; Hypokalemia E87.6 ; Mixed hyperlipidemia E78.2 and Hematuria, unspecified type R31.9 [place] [address] [address] Nov, Hypokalemia E87.6 ; Mixed hy perlipidemia E78.2 and Hematuria, unspecified type R31.9 [place] [address] [address] Nov, [place] [address] [address] Nov, Hypokalemia E87.6 [place] [address] [address] Nov, [place] [address] [phone] Nov, Abnormal renal ultrasound R9 3.429 [place] [address] [address] Nov, Abnormal renal ultrasound R9 3.429 [place] [address] [address] Nov, Hematuria, unspecified type R31.9 and Neuroforaminal stenosis of spine M99.89 [place] [address] [id number] [address] [place] [address] Nov, Dysuria R30.0 [facility] [address] [id number] [address] [place] [address] Oct, Lateral epicondylitis, right elbow M77.11 [facility] [address] [id number] [address] [place] [address] Oct, 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 ; Visit for TB skin test Z11.1 and Essential hypertension I10 [place] [address] [id number] [address] [place] [address] Oct, [place] [address] [id number] [address] [place] [address] Oct, 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 [place] [address] [id number] [address] [place] [address] Oct, Visit for TB skin test Z11.1 [place] [address] [id number] [address] [place] [address] 05 Oct, 2017 Cystitis without hematuria N 30.90 [place] [address] [id number] [address] [place] [address] Sep, Screening breast examination Z12.39 [place] [address] [id number] [address] [place] [address] Sep, Dysuria R30.0 and Cystitis w ithout hematuria N30.90 [place] [address] [id number] [address] [place] [address] 14 Sep, 2017 Essential hypertension I10 a nd Neuroforaminal stenosis of spine M99.89 [facility] [address] [id number] [address] [place] [address] Sep, Abnormal glucose R73.09 [place] [address] [id number] [address] [place] [address] August, Lateral epicondylitis, right elbow M77.11 [facility] [address] [id number] [address] [place] [address] August, Screen for STD (sexually tra nsmitted disease) Z11.3 [facility] [address] [id number] [address] [place] [address] August, Neuroforaminal stenosis of s jose M99.89 ; Mixed hyperlipidemia E78.2 ; Elevated fasting glucose R73.01 ; Screening mammogram, encounter for Z12.31 and Encounter for well woman exam without gynecological exam Z00.00 [facility] [address] [id number] [address] [place] [address] August, 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 [facility] [address] [id number] [address] [place] [address] August, Essential hypertension I10 ; Hypokalemia E87.6 and Mixed hyperlipidemia E78.2 [place] [address] [id number] [address] [place] [address] Jul, [place] [address] [id number] [address] [place] [address] Jul, Neuroforaminal stenosis of s jose M99.89 [facility] [address] [id number] [address] [place] [phone] Jul, Lateral epicondylitis, right elbow M77.11 [place] [address] [id number] [address] [place] [address] Jul, [place] [address] [id number] [address] [place] [address] Jun, High ankle sprain of right l ower extremity, initial encounter S93.431A [facility] [address] [id number] [address] [place] [address] Jun, Essential hypertension I10 [place] [address] [id number] [address] [place] [address] Jun, [place] [address] [facility] [id number] [address] [place] [address] Jun, [place] [address] [facility] [id number] [address] [place] [address] Jun, 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 [place] [address] [address] [place] [id number] [address] [place] [address] Jun, Pain of right upper extremit y M79.601 and Essential hypertension I10 [place] [address] [facility] [id number] [address] [place] [address] Jun, [place] [address] [facility] [id number] [address] [place] [address] Jun, Dysuria R30.0 ; Acute cystit is with hematuria N30.01 and Screen for STD (sexually transmitted disease) Z11.3 [place] [id number] [place] [address] May, Chronic pain due to trauma G 89.21 [place] [address] [facility] [id number] [address] [place] [address] May, Essential hypertension I10 [place] [address] [facility] [id number] [address] [place] [address] May, 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 [place] [address] [address] [place] [id number] [address] [place] [address] Apr, Allergic reaction, initial e ncounter T78.40XA [place] [address] [address] [facility] [id number] [address] [place] [address] Apr, Low back pain, unspecified b ack pain laterality, unspecified chronicity, with sciatica presence unspecified M54.5 ; Acute cystitis with hematuria N30.01 ; Neuroforaminal stenosis of spine M99.89 ; Bilateral acute serous otitis media, recurrence not specified H65.03 ; Mixed hyperlipidemia E78.2 ; Essential hypertension I10 ; Immunization counseling Z71.89 and Encounter for immunization Z23 [facility] [address] [id number] [address] [place] [id number] 08 Apr, 2017 Neck pain M54.2 [facility] [address] [id number] [address] [place] [address] Mar, 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 [facility] [address] [id number] [address] [place] [address] Mar, Pharyngitis due to other org anism J02.8 [facility] [address] [id number] [address] [place] [address] Feb, 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 [facility] [address] [id number] [address] [place] [id number] Feb, UTI (urinary tract infection ) N39.0 [facility] [address] [facility] [id number] [address] [place] [address] Feb, Recent urinary tract infecti on Z87.440 ; Neuroforaminal stenosis of spine M99.89 ; Neck pain M54.2 ; Chronic pain due to trauma G89.21 and Recurrent UTI N39.0 [facility] [address] [id number] [address] [place] [phone] Feb, [facility] [address] [id number] [address] [place] [address] Jan, 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 [facility] [address] [id number] [address] [place] [address] Dec, 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 [facility] [address] [facility] [id number] [address] [place] [address] 18 Dec, 2016 Acute seasonal allergic rhin itis due to pollen J30.1 [facility] [address] [id number] [address] [place] [id number] Dec, [place] [address] [id number] [address] [place] [address] Dec, Acute seasonal allergic rhin itis, unspecified trigger J30.2 ; Allergic conjunctivitis of both eyes H10.13 and Dysfunction of both eustachian tubes H69.83 [facility] [address] [id number] [address] [place] [address] Dec, [place] [address] [id number] [address] [place] [address] Dec, Nevus D22.9 [place] [address] [id number] [address] [place] [address] Nov, Chronic pain due to trauma G 89.21 and Neuroforaminal stenosis of spine M99.89 [place] [address] [facility] [id number] [address] [place] [address] Nov, 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 ; Essential hypertension I10 ; Mixed hyperlipidemia E78.2 ; Hypokalemia E87.6 ; Neck pain M54.2 and Nevus D22.9 [place] [address] [id number] [address] [place] [id number] Oct, 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 [place] [address] [address] [facility] [id number] [address] [place] [phone] Sep, 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 [place] [address] [id number] [address] [place] [phone] Sep, [place] [address] [id number] [address] [place] [id number] August, [place] [address] [address] [facility] [id number] [address] [place] [phone] August, Neck pain M54.2 and Neurofor aminal stenosis of spine M99.89 [place] [address] [address] [facility] [id number] [address] [place] [id number] August, Routine gynecological examin ation Z01.419 and Screening breast examination Z12.39 [facility] [address] [id number] [address] [place] [id number] Jul, [facility] [address] [id number] [address] [place] [phone] Jul, [facility] [address] [id number] [address] [place] [phone] Jul, 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 [facility] [address] [id number] [address] [place] [phone] Jul, [facility] [address] [id number] [address] [place] [phone] Jul, Neuroforaminal stenosis of l umbar 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 [facility] [address] [id number] [address] [place] [phone] Jul, [facility] [address] [id number] [address] [place] [id number] Jul, [facility] [address] [id number] [address] [place] [phone] Jun, 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 [facility] [address] [id number] [address] [place] [phone] Jun, Uterine leiomyoma, unspecifi ed location D25.9 and Allergic reaction caused by a drug, initial encounter T78.40XA [facility] [address] [id number] [address] [place] [address] Jun, [facility] [address] [id number] [address] [place] [address] May, UTI symptoms R39.9 and Pain of right sacroiliac joint M53.3 [facility] [address] [id number] [address] [place] [address] May, 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 [place] [address] [id number] [address] [place] [address] May, [facility] [address] [id number] [address] [place] [address] May, Acute mucoid otitis media of left ear H65.112 and Acute non- recurrent maxillary sinusitis J01.00 [place] [address] [id number] [address] [place] [address] May, Acute bacterial conjunctivit is of both eyes H10.33 ; Left arm pain M79.602 and Hypokalemia E87.6 [place] [address] [id number] [address] [place] [address] Apr, [place] [address] [address] [facility] [id number] [address] [place] [address] Apr, 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 ; Neck pain M54.2 ; Chronic pain due to trauma G89.21 ; Mixed hyperlipidemia E78.2 ; Essential hypertension I10 and Hypokalemia E87.6 [place] [address] [address] [facility] [id number] [address] [place] [address] Mar, Oral candidiasis B37.0 ; Nathaniel roforaminal stenosis of spine M99.89 ; Neck pain M54.2 and Chronic pain due to trauma G89.21 [place] [address] [address] [facility] [id number] [address] [place] [address] Feb, [place] [address] [id number] [address] [place] [address] Feb, [place] [address] [address] [facility] [id number] [address] [place] [address] Feb, UTI (urinary tract infection ) N39.0 [place] [address] [address] [facility] [id number] [address] [place] [address] 09 Feb, 2016 Dysuria R30.0 [place] [address] [id number] [address] [place] [address] 08 Feb, 2016 Dysuria R30.0 [facility] [address] [id number] [address] [place] [address] Feb, Neuroforaminal stenosis of s jose M99.89 ; Neck pain M54.2 ; Essential hypertension I10 ; Chronic pain due to trauma G89.21 ; Dysuria R30.0 ; Abnormal MRI, shoulder R93.8 and Acute cystitis without hematuria N30.00 [facility] [address] [id number] [address] [place] [address] Jan, [facility] [address] [id number] [address] [place] [address] Jan, [facility] [address] [id number] [address] [place] [address] Jan, [facility] [address] [id number] [address] [place] [address] Jan, Abnormal MRI R93.8 [facility] [address] [id number] [address] [place] [address] 29 Dec, 2015 [facility] [address] [id number] [address] [place] [address] 15 Dec, 2015 Acute pain of left shoulder M25.512 [facility] [address] [id number] [address] [place] [id number] 09 Dec, 2015 [facility] [address] [id number] [address] [place] [id number] 08 Dec, 2015 [facility] [address] [id number] [address] [place] [address] 07 Dec, 2015 Acute pain of left shoulder M25.512 [facility] [address] [id number] [address] [place] [address] Nov, [facility] [address] [id number] [address] [place] [address] Nov, 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 ; Neck pain M54.2 ; Abnormal mammogram R92.8 ; Essential hypertension I10 and Chronic pain due to trauma G89.21 [facility] [address] [id number] [address] [place] [address] Nov, [facility] [address] [id number] [address] [place] [phone] Oct, Acute stress disorder F43.0 [facility] [address] [id number] [address] [place] [address] Oct, [facility] [address] [id number] [address] [place] [address] Oct, [facility] [address] [id number] [address] [place] [address] Oct, [facility] [address] [id number] [address] [place] [address] Sep, [facility] [address] [id number] [address] [place] [address] August, [facility] [address] [id number] [address] [place] [address] Jul, 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 ; Neck pain M54.2 ; Abnormal mammogram R92.8 and Essential hypertension I10 [facility] [address] [id number] [address] [place] [address] Jul, [facility] [address] [id number] [address] [place] [address] Jul, [facility] [address] [id number] [address] [place] [address] Jul, Abnormal mammogram R92.8 [facility] [address] [id number] [address] [place] [address] Jul, [facility] [address] [id number] [address] [place] [address] Jul, UTI (urinary tract infection ) N39.0 [facility] [address] [id number] [address] [place] [address] Jul, Dysuria R30.0 [facility] [address] [id number] [address] [place] [address] Jun, [facility] [address] [id number] [address] [place] [address] Jun, [facility] [address] [id number] [address] [place] [address] Jun, Hypokalemia E87.6 and Hematu martina R31.9 [facility] [address] [id number] [address] [place] [address] Jun, Hypokalemia E87.6 [facility] [address] [facility] [id number] [address] [place] [address] Jun, [facility] [address] [id number] [address] [place] [address] Jun, Hypokalemia E87.6 [facility] [address] [id number] [address] [place] [address] Jun, Hypokalemia E87.6 [facility] [address] [facility] [id number] [address] [place] [address] Jun, 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 ; Hypokalemia E87.6 ; Neck pain M54.2 ; Essential hypertension I10 ; Mixed hyperlipidemia E78.2 and Screening breast examination Z12.39 [facility] [address] [id number] [address] [place] [id number] 08 Jun, 2015 Dysuria R30.0 ; UTI (urinary tract infection) N39.0 and Hematuria R31.9 [facility] [address] [id number] [address] [place] [address] May, [facility] [address] [facility] [id number] [address] [place] [address] 18 May, 2015 High risk sexual behavior Z7 2.51 ; Hypokalemia E87.6 ; Neuroforaminal stenosis of spine M99.89 ; Neck pain M54.2 ; Essential hypertension I10 ; Mixed hyperlipidemia E78.2 ; STD exposure Z20.2 and Concern about STD in female without diagnosis Z71.1 [facility] [address] [place] [id number] [address] [place] [address] 16 May, 2015 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 ; Neck pain M54.2 ; Hypokalemia E87.6 ; Essential hypertension I10 and Mixed hyperlipidemia E78.2 [facility] [address] [address] 11 May, 2015 [facility] [address] [place] [id number] [address] [place] [id number] 08 May, 2015 High risk sexual behavior Z7 2.51 ; STD exposure Z20.2 and Concern about STD in female without diagnosis Z71.1 [facility] [address] [place] [id number] [address] [place] [address] May, [facility] [address] [address] Apr, 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 ; Mixed hyperlipidemia E78.2 ; Essential hypertension I10 and Hypokalemia E87.6 [place] [address] [place] [id number] [address] [place] [address] Mar, [place] [id number] [place] [address] Mar, Hypokalemia E87.6 [place] [address] [place] [id number] [place] [address] Mar, 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 ; Mixed hyperlipidemia E78.2 ; Neck pain M54.2 ; Essential hypertension I10 ; Abnormal fasting glucose R73.09 ; Hypokalemia E87.6 and Constipation K59.00 [place] [address] [facility] [id number] [address] [place] [address] Feb, 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 ; Mixed hyperlipidemia E78.2 ; Neck pain M54.2 ; Essential hypertension I10 ; Abnormal fasting glucose R73.09 ; Hypokalemia E87.6 and Constipation K59.00 [place] [address] [address] [facility] [id number] [address] [place] [address] Feb, Elevated fasting blood sugar R73.01 [place] [address] [address] [facility] [id number] [address] [place] [address] Feb, Elevated fasting blood sugar R73.01 [place] [address] [place] [id number] [place] [address] Feb, Hair loss L65.9 [place] [address] [place] [id number] [place] [address] Feb, Sinusitis J32.9 ; Essential hypertension I10 and Hair loss L65.9 [place] [address] [place] [id number] [address] [place] [address] Jan, [place] [address] [place] [id number] [place] [address] Jan, Essential hypertension I10 ; Neuroforaminal stenosis of spine M99.89 ; Neck pain M54.2 ; Mixed hyperlipidemia E78.2 and Anxiety F41.9 [place] [address] [place] [id number] [address] [place] [address] Jan, [place] [address] [place] [id number] [address] [place] [address] Jan, Mixed hyperlipidemia E78.2 ; Essential (primary) hypertension I10 ; Strain of muscle, fascia and tendon at neck level, subsequent encounter S16.1XXD and Tension-type headache, unspecified, not intractable G44.209 [place] [address] [address] [place] [id number] [address] [place] [address] Dec, Lumbar back pain 724.2 and N euroforaminal stenosis of spine 724.00 [facility] [address] [id number] [address] [place] [phone] Nov, [facility] [address] [id number] [address] [place] [address] Nov, Lumbar back pain 724.2 and N euroforaminal stenosis of spine 724.00 [facility] [address] [id number] [address] [place] [address] Nov, Edema 782.3 ; Lumbar back pa in 724.2 ; Essential hypertension, benign 401.1 ; Hyperlipemia 272.4 ; Neuroforaminal stenosis of spine 724.00 and Post-concussion headache 339.20 [facility] [address] [id number] [address] [place] [address] Nov, [facility] [address] [id number] [address] [place] [address] Nov, [facility] [address] [id number] [address] [place] [address] Oct, Essential hypertension, sheridan gn 401.1 [facility] [address] [id number] [address] [place] [address] Oct, Edema 782.3 ; Lumbar back pa in 724.2 ; Essential hypertension, benign 401.1 ; Hyperlipemia 272.4 ; Neuroforaminal stenosis of spine 724.00 and Post-concussion headache 339.20 [facility] [address] [id number] [address] [place] [address] Oct, [facility] [address] [id number] [address] [place] [address] Oct, Edema 782.3 [facility] [address] [id number] [address] [place] [address] Oct, Lumbar back pain 724.2 [facility] [address] [id number] [address] [place] [phone] Oct, Cervicalgia 723.1 ; Lumbar b ack pain 724.2 and High risk medication use V58.69 [facility] [address] [id number] [address] [place] [address] Sep, [facility] [address] [facility] [id number] [address] [place] [address] Sep, Lumbar strain 847.2 [facility] [address] [id number] [address] [place] [address] August, Edema 782.3 and Eustachian t ube dysfunction 381.81 [facility] [address] [facility] [id number] [address] [place] [address] August, [facility] [address] [place] [id number] [address] [place] [address] August, Eustachian tube dysfunction 381.81 [facility] [address] [facility] [id number] [address] [place] [phone] Jul, Otalgia 388.70 and Otitis me jonathon 382.9 [facility] [address] [facility] [id number] [address] [place] [address] Jul, [facility] [address] [facility] [id number] [address] [place] [phone] Jul, [facility] [address] [facility] [id number] [address] [place] [address] Jul, [facility] [address] [id number] [address] [place] [address] Jul, [facility] [address] [id number] [address] [place] [id number] Jul, [facility] [address] [facility] [id number] [address] [place] [address] Jun, [facility] [address] [facility] [id number] [address] [place] [address] Jun, [facility] [address] [id number] [address] [place] [address], [place] [address] Jun, [facility] [address] [id number] [address] [place] [address], [place] [address] May, 2014 [facility] [address] [id number] [address] [place] [address], [place] [address] May, 2014 [facility] [address] [id number] [address] [place] [address], [place] [address] May, 2014 [facility] [address] [id number] [address] [place] [address], [place] [address] May, 2014 [facility] [address] [id number] [address] [place] [address], [place] [address] May, 2014 [facility] [address] [id number] [address] [place] [address], [place] [address] May, 2014 [facility] [address] [id number] [address] [place] [address], [place] [address] May, 2014 [facility] [address] [id number] [address] [place] [address], [place] [address] May, [facility] [address] [id number] [address] [place] [address], [place] [address] May, [facility] [address] [id number] [address] [place] [address], [place] [address] May, [facility] [address] [id number] [address] [place] [address], [place] [address] Apr, [facility] [address] [id number] [address] [place] [address], [place] [address] Apr, [facility] [address] [id number] [address] [place] [address], [place] [address] Apr, [facility] [address] [id number] [address] [place] [address], [place] [address] Apr, [facility] [address] [id number] [address] [place] [address], [place] [address] Apr, [facility] [address] [id number] [address] [place] [address], [place] [address] Apr, [facility] [address] [id number] [address] [place] [address], [place] [address] Apr, [facility] [address] [id number] [address] [place] [address], [place] [address] Apr, [facility] [address] [id number] [address] [place] [address], [place] [address] Apr, [facility] [address] [id number] [address] [place] [address], [place] [address] Apr, [facility] [address] [id number] [address] [place] [address], [place] [address] Apr, [facility] [address] [id number] [address] [place] [address], [place] [address] Apr, [facility] [address] [id number] [address] [place] [address], [place] [address] Apr, [facility] [address] [id number] [address] [place] [address], [place] [address] Apr, [facility] [address] [id number] [address] [place] [address], [place] [address] Apr, [facility] [address] [id number] [address] [place] [address], [place] [address] Mar, [facility] [address] [id number] [address] [place] [address], [place] [address] Mar, [facility] [address] [id number] [address] [place] [address], [place] [address] Mar, [facility] [address] [id number] [address] [place] [address], [place] [address] Mar, [facility] [address] [id number] [address] [place] [address], [place] [address] Feb, [facility] [address] [id number] [address] [place] [address], [place] [address] Feb, [facility] [address] [id number] [address] [place] [address], [place] [address] Feb, [facility] [address] [id number] [address] [place] [address], [place] [address] Feb, [facility] [address] [id number] [address] [place] [address], [place] [address] Jan, [facility] [address] [id number] [address] [place] [address], [place] [address] Jan, [facility] [address] [id number] [address] [place] [address], [place] [address] Jan, [facility] [address] [id number] [address] [place] [address], [place] [address] Jan, [facility] [address] [id number] [address] [place] [address], [place] [address] Jan, [facility] [address] [id number] [address] [place] [address], [place] [address] Jan, [facility] [address] [id number] [address] [place] [address], [place] [address] Jan, [facility] [address] [id number] [address] [place] [address], [place] [address] Jan, [facility] [address] [id number] [address] [place] [address], [place] [address] Dec, 2013 [facility] [address] [id number] [address] [place] [address], [place] [address] 29 Dec, 2013 [facility] [address] [id number] [address] [place] [address], [place] [address] Dec, [facility] [address] [id number] [address] [place] [address], [place] [address] 04 Dec, 2013 [facility] [address] [id number] [address] [place] [address], [place] [address] Oct, 2013 [facility] [address] [id number] [facility] [place] [address] Oct, 2013 [facility] [address] [id number] [address] [place] [address], [place] [address] Oct, [facility] [address] [id number] [address] [place] [address], [place] [address] Oct, 2013 [facility] [address] [id number] [address] [place] [address], [place] [address] Oct, 2013 [facility] [address] [id number] [address] [place] [address], [place] [address] Oct, 2013 [facility] [address] [id number] [address] [place] [address], [place] [address] Oct, 2013 [facility] [address] [id number] [address] [place] [address], [place] [address] Oct, [facility] [address] [id number] [address] [place] [address], [place] [address] Sep, [facility] [address] [id number] [address] [place] [address], [place] [address] Sep, [facility] [address] [id number] [address] [place] [address], [place] [address] Sep, [facility] [address] [id number] [address] [place] [address], [place] [address] Sep, [facility] [address] [id number] [address] [place] [address], [place] [address] Sep, [facility] [address] [id number] [address] [place] [address], [place] [address] Sep, [facility] [address] [id number] [address] [place] [address], [place] [address] Sep, [facility] [address] [id number] [address] [place] [address], [place] [address] Sep, [facility] [address] [id number] [address] [place] [address], [place] [address] Sep, [facility] [address] [id number] [address] [place] [address], [place] [address] Sep, [facility] [address] [id number] [address] [place] [address], [place] [address] August, [facility] [address] [id number] [address] [place] [address], [place] [address] August, [facility] [address] [id number] [address] [place] [address], [place] [address] August, [facility] [address] [id number] [address] [place] [address], [place] [address] August, [facility] [address] [id number] [address] [place] [address], [place] [address] August, [facility] [address] [id number] [address] [place] [address], [place] [address] August, [facility] [address] [id number] [address] [place] [address], [place] [address] August, [facility] [address] [id number] [address] [place] [address], [place] [address] August, [facility] [address] [id number] [address] [place] [address], [place] [address] August, [facility] [address] [id number] [address] [place] [address], [place] [address] August, [facility] [address] [id number] [address] [place] [address], [place] [address] August, [facility] [address] [id number] [address] [place] [address], [place] [address] August, [facility] [address] [id number] [address] [place] [address], [place] [address] Jul, [facility] [address] [id number] [address] [place] [address], [place] [address] Jul, [facility] [address] [id number] [facility] [place] [address] Jul, [facility] [address] [id number] [address] [place] [address], [place] [address] Jul, [facility] [address] [id number] [address] [place] [address], [place] [address] Jul, [facility] [address] [id number] [address] [place] [address], [place] [address] Jul, [facility] [address] [id number] [address] [place] [address], [place] [address] Jun, [facility] [address] [id number] [address] [place] [address], [place] [address] Jun, [facility] [address] [id number] [address] [place] [address], [place] [address] May, [facility] [address] [id number] [address] [place] [address], [place] [address] May, [facility] [address] [id number] [address] [place] [address], [place] [address] Apr, [facility] [address] [id number] [address] [place] [address], [place] [address] Apr, [facility] [address] [id number] [address] [place] [address], [place] [address] Apr, [facility] [address] [id number] [address] [place] [address], [place] [address] Apr, [facility] [address] [id number] [address] [place] [address], [place] [address] Apr, [facility] [address] [id number] [address] [place] [address], [place] [address] Apr, [facility] [address] [id number] [address] [place] [address], [place] [address] Apr, [facility] [address] [id number] [address] [place] [address], [place] [address] Apr, [facility] [address] [id number] [address] [place] [address], [place] [address] Apr, [facility] [address] [id number] [address] [place] [address], [place] [address] Apr, [facility] [address] [id number] [address] [place] [address], [place] [address] Apr, [facility] [address] [id number] [address] [place] [address], [place] [address] Apr, [facility] [address] [id number] [address] [place] [address], [place] [address] Apr, [facility] [address] [id number] [address] [place] [address], [place] [address] Mar, [facility] [address] [id number] [address] [place] [address], [place] [address] Mar, [facility] [address] [id number] [address] [place] [address], [place] [address] Mar, [facility] [address] [id number] [address] [place] [address], [place] [address] Mar, [facility] [address] [id number] [address] [place] [address], [place] [address] Feb, [facility] [address] [id number] [address] [place] [address], [place] [address] Feb, [facility] [address] [id number] [address] [place] [address], [place] [address] Feb, [facility] [address] [id number] [address] [place] [address], [place] [address] Feb, [facility] [address] [id number] [address] [place] [address], [place] [address] Jan, [facility] [address] [id number] [address] [place] [address], [place] [address] Jan, [facility] [address] [id number] [address] [place] [address], [place] [address] Jan, [facility] [address] [id number] [address] [place] [address], [place] [address] Jan, [facility] [address] [id number] [address] [place] [address], [place] [address] Jan, [facility] [address] [id number] [address] [place] [address], [place] [address] Jan, [facility] [address] [id number] [address] [place] [address], [place] [address] Jan, [facility] [address] [id number] [address] [place] [address], [place] [address] Jan, [facility] [address] [id number] [address] [place] [address], [place] [address] Jan, [facility] [address] [id number] [address] [place] [address], [place] [address] 26 Dec, 2012 [facility] [address] [id number] [address] [place] [address], [place] [address] 16 Dec, 2012 [facility] [address] [id number] [address] [place] [address], [place] [address] 16 Dec, 2012 [facility] [address] [id number] [address] [place] [address], [place] [address] 13 Dec, 2012 [facility] [address] [id number] [address] [place] [address], [place] [address] 17 Nov, 2012 [facility] [address] [id number] [address] [place] [address], [place] [address] 17 Nov, 2012 [facility] [address] [id number] [address] [place] [address], [place] [address] 14 Nov, 2012 [facility] [address] [id number] [address] [place] [address], [place] [address] 05 Nov, 2012 [facility] [address] [id number] [address] [place] [address], [place] [address] Oct, [facility] [address] [id number] [address] [place] [address], [place] [address] Sep, [facility] [address] [id number] [address] [place] [address], [place] [address] August, [facility] [address] [id number] [address] [place] [address], [place] [address] August, [facility] [address] [id number] [address] [place] [address], [place] [address] August, [facility] [address] [id number] [address] [place] [address], [place] [address] August, [facility] [address] [id number] [address] [place] [address], [place] [address] August, [facility] [address] [id number] [address] [place] [address], [place] [address] August, [facility] [address] [id number] [address] [place] [address], [place] [address] August, [facility] [address] [id number] [address] [place] [address], [place] [address] August, [facility] [address] [id number] [address] [place] [address], [place] [address] August, [facility] [address] [id number] [address] [place] [address], [place] [address] August, [facility] [address] [id number] [address] [place] [address], [place] [address] August, [facility] [address] [id number] [address] [place] [address], [place] [address] August, [facility] [address] [id number] [address] [place] [address], [place] [address] Jul, [facility] [address] [id number] [address] [place] [address], [place] [address] Jul, [facility] [address] [id number] [address] [place] [address], [place] [address] 18 Jul, 2012 [facility] [address] [id number] [address] [place] [address], [place] [address] 15 Jul, 2012 [facility] [address] [id number] [address] [place] [address], [place] [address] Jul, [facility] [address] [id number] [address] [place] [address], [place] [address] 08 Jul, 2012 [facility] [address] [id number] [address] [place] [address], [place] [address] 04 Jul, 2012 [facility] [address] [id number] [address] [place] [address], [place] [address] Jul, [facility] [address] [id number] [address] [place] [address], [place] [address] Jul, [facility] [address] [id number] [address] [place] [address], [place] [address] Jul, [facility] [address] [id number] [address] [place] [address], [place] [address] Jul, [facility] [address] [id number] [address] [place] [address], [place] [address] Jun, [facility] [address] [id number] [address] [place] [address], [place] [address] Jun, [facility] [address] [id number] [address] [place] [address], [place] [address] Jun, [facility] [address] [id number] [address] [place] [address], [place] [address] Jun, [facility] [address] [id number] [address] [place] [address], [place] [address] 28 May, 2012 [facility] [address] [id number] [address] [place] [address], [place] [address] 14 May, 2012 [facility] [address] [id number] [address] [place] [address], [place] [address] 05 May, 2012 [facility] [address] [id number] [address] [place] [address], [place] [address] May, [facility] [address] [id number] [address] [place] [address], [place] [address] May, [facility] [address] [id number] [address] [place] [address], [place] [address] May, [facility] [address] [id number] [address] [place] [address], [place] [address] Apr, [facility] [address] [id number] [address] [place] [address], [place] [address] Apr, [facility] [address] [id number] [address] [place] [address], [place] [address] Apr, [facility] [address] [id number] [address] [place] [address], [place] [address] Apr, [facility] [address] [id number] [address] [place] [address], [place] [address] 15 Mar, 2012 [facility] [address] [id number] [address] [place] [address], [place] [address] 14 Mar, 2012 [facility] [address] [id number] [address] [place] [address], [place] [address] 14 Mar, 2012 [facility] [address] [id number] [address] [place] [address], [place] [address] 14 Mar, 2012 [facility] [address] [id number] [address] [place] [address], [place] [address] 14 Mar, 2012 [facility] [address] [id number] [address] [place] [address], [place] [address] 06 Mar, 2012 [facility] [address] [id number] [address] [place] [address], [place] [address] 06 Mar, 2012 [facility] [address] [id number] [address] [place] [address], [place] [address] Feb, [facility] [address] [id number] [address] [place] [address], [place] [address] Feb, [facility] [address] [id number] [address] [place] [address], [place] [address] Feb, [facility] [address] [id number] [address] [place] [address], [place] [address] Feb, [facility] [address] [id number] [address] [place] [address], [place] [address] Jan, [facility] [address] [id number] [address] [place] [address], [place] [address] Jan, [facility] [address] [id number] [address] [place] [address], [place] [address] Jan, [facility] [address] [id number] [address] [place] [address], [place] [address] Jan, [facility] [address] [id number] [address] [place] [address], [place] [address] Jan, [facility] [address] [id number] [address] [place] [address], [place] [address] Jan, [facility] [address] [id number] [address] [place] [address], [place] [address] Dec, [facility] [address] [id number] [address] [place] [address], [place] [address] Dec, [facility] [address] [id number] [address] [place] [address], [place] [address] Nov, [facility] [address] [id number] [address] [place] [address], [place] [address] Sep, [facility] [address] [id number] [address] [place] [address], [place] [address] August, [facility] [address] [id number] [address] [place] [address], [place] [address] August, [facility] [address] [id number] [address] [place] [address], [place] [address] August, [facility] [address] [id number] [address] [place] [address], [place] [address] August, [facility] [address] [id number] [address] [place] [address], [place] [address] August, [facility] [address] [id number] [address] [place] [address], [place] [address] Jun, [facility] [address] [id number] [address] [place] [address], [place] [address] Jun, [facility] [address] [id number] [address] [place] [address], [place] [address] Apr, [facility] [address] [id number] [address] [place] [address], [place] [address] Apr, [facility] [address] [id number] [address] [place] [address], [place] [address] Mar, [facility] [address] [id number] [address] [place] [address], [place] [address] Feb, [facility] [address] [id number] [address] [place] [address], [place] [address] Feb, [facility] [address] [id number] [address] [place] [address], [place] [address] Feb, [facility] [address] [id number] [address] [place] [address], [place] [address] 17 Jan, 2011 [facility] [address] [id number] [address] [place] [address], [place] [address] 15 Jan, 2011 [facility] [address] [id number] [address] [place] [address], [place] [address] 15 Jan, 2011 [facility] [address] [id number] [address] [place] [address], [place] [address] 14 Jan, 2011 [facility] [address] [id number] [address] [place] [address], [place] [address] 15 May, 2010 [facility] [address] [id number] [address] [place] [address] Mar, [facility] [address] [facility] [id number] [address] [place] [address] Oct, [facility] [address] [facility] [id number] [address] [place] [address] Sep, [facility] [address] [facility] [id number] [address] [place] [address] Mar, [facility] [address] [facility] [id number] [address] [place] [address] Jan, [facility] [address] [facility] [id number] [address] [place] [address] Jan, [facility] [address] [facility] [id number] [address] [place] [address] May, IMMUNIZATIONS No Known Immunizations SOCIAL HISTORY Never Assessed REASON FOR VISIT PLAN OF CARE VITAL SIGNS Height 62 in 2012-08-28 Weight 167.24 lbs 2012-08-28 Temperature 97.2 degrees Fahrenheit 2012-08-28 Heart Rate 64 bpm 2012-08-28 Respiratory Rate 18 bpm 2012-08-28 Blood pressure systolic 110 mmHg 2012-08-28 Blood pressure diastolic 80 mmHg 2012-08-28 MEDICATIONS Unknown Medications RESULTS No Results PROCEDURES Procedure Date Ordered Result Body Site URINE CULTURE/COLONY COUNT August 28, 2012 URINALYSIS, AUTO, W/O SCOPE August 28, 2012 INSTRUCTIONS MEDICATIONS ADMINISTERED No Known Medications MEDICAL (GENERAL) HISTORY Type Description Date Medical History hypertension Medical History Colposcopy with loop electro de excision of the cervix was performed 06/2012, mild squamous atypia (no definite dyplasia). Performed at [facility] Dr. Joy. Medical History Acute [...]
--- OUTSIDE RECORDS SUMMARY | 2019-11-23 05:36 | XMS REPORT ---
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 Active [id number] Problem Essential hypertension I10 Active 86347654 Problem Mixed hyperlipidemia E78.2 Active 23952284 Problem Other chronic pain G89.29 Active 8 5186959 Problem Neck pain M54.2 Active 63570042 Problem Slow transit constipation K59.01 Acti ve 28294031 Problem Anxiety F41.9 Active 74310546 Problem Hypokalemia E87.6 Active 86407055 Problem Chronic pain due to trauma G89.21 Act juanis 537768638 Problem Seasonal allergies J30.2 Active 4 74228067 Problem Rhinosinusitis J32.9 Active 93202 4004 ALLERGIES No Information ENCOUNTERS Encounter Location Date Diagnosis [place] [address] [facility] [id number] [address] [place] [address] Jan, [facility] [address] [facility] [id number] [address] [place] [address] Oct, 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 [facility] [address] [facility] [id number] [address] [place] [address] Oct, [facility] [address] [facility] [id number] [address] [place] [address] Oct, Right flank pain R10.9 ; Low er abdominal pain R10.30 ; Slow transit constipation K59.01 and 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 [facility] [address] [facility] [id number] [address] [place] [address] Sep, Encounter for laboratory luisa ting for COVID-19 virus V73.89 [place] [id number] [facility] [id number] [address] [place] [address] August, 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 [place] [address] [facility] [id number] [address] [place] [address] August, Acute bacterial conjunctivit is of right eye H10.31 [facility] [address] [facility] [id number] [address] [place] [address] August, Low back pain M54.5 ; Other chronic pain G89.29 and Dysuria R30.0 [facility] [address] [facility] [id number] [address] [place] [address] August, [place] [address] [facility] [id number] [address] [place] [address] Jul, 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 [facility] [address] [facility] [id number] [address] [place] [address] Jul, Allergic conjunctivitis of b oth eyes H10.13 [facility] [address] [id number] [address] [place] [address] Jun, Hypokalemia E87.6 [facility] [address] [id number] [address] [place] [address] Jun, [facility] [address] [id number] [address] [place] [address] Jun, Neuroforaminal stenosis of s jose M99.89 [place] [address] [id number] [address] [place] [id number] 19 Jun, 2019 Lateral epicondylitis, left elbow M77.12 and Medial epicondylitis, left elbow M77.02 [place] [address] [id number] [address] [place] [address] 16 Jun, 2019 Foraminal stenosis of lumbar region M48.061 ; Segmental dysfunction of thoracic region M99.02 ; Segmental dysfunction of lumbar region M99.03 and Segmental dysfunction of sacral region M99.04 [place] [address] [id number] [address] [place] [address] 28 May, 2019 Left elbow pain M25.522 [place] [address] [facility] [id number] [address] [place] [address] May, [place] [address] [id number] [address] [place] [address] May, Left elbow pain M25.522 [place] [address] [id number] [address] [place] [address] May, Neuroforaminal stenosis of s jose M99.89 [facility] [address] [facility] [id number] [address] [place] [address] 26 May, 2019 Rhinosinusitis J32.9 ; Left elbow pain M25.522 and Neck pain M54.2 [place] [address] [facility] [id number] [address] [place] [address] 14 May, 2019 Lateral epicondylitis of lef t elbow M77.12 [facility] [address] [id number] [address] [place] [address] Apr, 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 [facility] [address] [id number] [address] [place] [address] Apr, Essential hypertension I10 a nd Mixed hyperlipidemia E78.2 [facility] [address] [id number] [address] [place] [address] Mar, Neuroforaminal stenosis of s jose M99.89 [facility] [address] [id number] [address] [place] [address] Mar, Epicondylitis, lateral, left M77.12 [facility] [address] [id number] [address] [place] [address] Mar, [facility] [address] [id number] [address] [place] [address] Mar, Neuroforaminal stenosis of s jose M99.89 [facility] [address] [id number] [address] [place] [address] Feb, Neuroforaminal stenosis of ayla garcia M99.89 ; Essential hypertension I10 ; Mixed hyperlipidemia E78.2 ; Encounter for immunization Z23 and Seasonal allergies J30.2 [facility] [address] [id number] [address] [place] [address] Jan, 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 [facility] [address] [id number] [address] [place] [address] Dec, 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 [facility] [address] [id number] [address] [place] [address] Dec, 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 [facility] [address] [id number] [address] [place] [address] Nov, [facility] [address] [id number] [address] [place] [address] Nov, 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 [facility] [address] [id number] [address] [place] [address] Nov, Acute non-recurrent maxillar y sinusitis J01.00 [facility] [address] [id number] [address] [place] [address] Oct, Hypokalemia E87.6 [facility] [address] [id number] [address] [place] [address] Oct, Wasp sting, undetermined int ent, initial encounter T63.464A and Cellulitis of left lower extremity L03.116 [facility] [address] [id number] [address] [place] [address] Oct, 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 [facility] [address] [id number] [address] [place] [address] Sep, [facility] [address] [id number] [address] [place] [address] Sep, [facility] [address] [id number] [address] [place] [address] Sep, Routine screening for STI (s exually transmitted infection) Z11.3 [facility] [address] [id number] [address] [place] [address] Sep, Routine screening for STI (s exually transmitted infection) Z11.3 ; Well woman exam with routine gynecological exam Z01.419 and Breast cancer screening Z12.39 [facility] [address] [id number] [address] [place] [address] Sep, 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 [facility] [address] [id number] [address] [place] [address] August, 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 [facility] [address] [id number] [address] [place] [address] August, 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 ; Chronic pain due to trauma G89.21 and Mixed hyperlipidemia E78.2 [facility] [address] [id number] [address] [place] [address] Jul, Viral upper respiratory illn ess J06.9 and Acute non-recurrent frontal sinusitis J01.10 [facility] [address] [id number] [address] [place] [address] Jul, Congestion of nasal sinus R0 9.81 [facility] [address] [id number] [address] [place] [address] Jul, 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 and Essential hypertension I10 [facility] [address] [id number] [address] [place] [address] May, 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 [facility] [address] [id number] [address] [place] [address] May, [facility] [address] [id number] [address] [place] [address] May, Congestion of nasal sinus R0 9.81 [facility] [address] [id number] [address] [place] [address] May, [facility] [address] [id number] [address] [place] [address] Apr, 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 [facility] [address] [id number] [address] [place] [address] Apr, Neuroforaminal stenosis of s pine M99.89 and Chronic pain due to trauma G89.21 [facility] [address] [id number] [address] [place] [phone] Mar, UTI (urinary tract infection ) N39.0 [facility] [address] [id number] [address] [place] [address] Mar, Vertigo R42 [facility] [address] [id number] [address] [place] [address] 03 Mar, 2018 Neuroforaminal stenosis of s jose M99.89 [facility] [address] [id number] [address] [place] [address] Feb, Extensor tendon disruption M 67.89 [facility] [address] [id number] [address] [place] [address] Feb, Neuroforaminal stenosis of s pine M99.89 and High risk medication use Z79.899 [facility] [address] [id number] [address] [place] [address] Jan, Hypokalemia E87.6 [facility] [address] [id number] [address] [place] [address] Jan, Flank pain R10.9 and Acute r ight-sided low back pain without sciatica M54.5 [facility] [address] [id number] [address] [place] [address] Jan, Hypokalemia E87.6 [facility] [address] [id number] [address] [place] [address] Jan, [facility] [address] [facility] [id number] [address] [place] [address] Jan, URI, acute J06.9 [facility] [address] [id number] [address] [place] [phone] 05 Jan, 2018 Neuroforaminal stenosis of s jose M99.89 [facility] [address] [id number] [address] [place] [address] 13 Dec, 2017 Lateral epicondylitis, right elbow M77.11 [facility] [address] [facility] [id number] [address] [place] [address] 11 Dec, 2017 Allergic rhinitis due to monica rosalina, unspecified seasonality J30.1 and Allergic conjunctivitis of both eyes H10.13 [place] [address] [place] [id number] [address] [place] [address] Dec, Neuroforaminal stenosis of s pine M99.89 [place] [address] [place] [id number] [address] [place] [address] Dec, Mixed hyperlipidemia E78.2 [place] [address] [place] [id number] [place] [address] Dec, Abnormal glucose R73.09 ; Ab normal renal ultrasound R93.429 ; Dysuria R30.0 ; Cystitis without hematuria N30.90 ; Hypokalemia E87.6 ; Mixed hyperlipidemia E78.2 and Hematuria, unspecified type R31.9 [place] [address] [place] [id number] [place] [address] Nov, Hypokalemia E87.6 ; Mixed hy perlipidemia E78.2 and Hematuria, unspecified type R31.9 [place] [address] [place] [id number] [address] [place] [address] Nov, [place] [address] [place] [id number] [address] [place] [address] Nov, Hypokalemia E87.6 [place] [address] [place] [id number] [address] [place] [address] Nov, [place] [address] [place] [id number] [address] [place] [address] Nov, Abnormal renal ultrasound R9 3.429 [place] [address] [place] [id number] [address] [place] [address] Nov, Abnormal renal ultrasound R9 3.429 [place] [address] [facility] [id number] [address] [place] [address] Nov, Hematuria, unspecified type R31.9 and 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 [place] [address] [place] [id number] [address] [place] [address] Nov, Dysuria R30.0 [facility] [address] [id number] [address] [place] [address] Oct, Lateral epicondylitis, right elbow M77.11 [facility] [address] [id number] [address] [place] [address] Oct, Neuroforaminal stenosis of s pine M99.89 ; Visit for TB skin test Z11.1 and Essential hypertension I10 [place] [address] [id number] [address] [place] [address] Oct, [place] [address] [id number] [address] [place] [address] Oct, Neuroforaminal stenosis of s pine M99.89 [place] [address] [id number] [address] [place] [address] Oct, Visit for TB skin test Z11.1 [place] [address] [id number] [address] [place] [address] Oct, Cystitis without hematuria N 30.90 [place] [address] [id number] [address] [place] [address] Sep, Screening breast examination Z12.39 [place] [address] [id number] [address] [place] [address] Sep, Dysuria R30.0 and Cystitis w ithout hematuria N30.90 [place] [address] [id number] [address] [place] [address] Sep, Essential hypertension I10 a nd 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 [place] [address] [id number] [address] [place] [address] Sep, Abnormal glucose R73.09 [place] [address] [id number] [address] [place] [address] August, Lateral epicondylitis, right elbow M77.11 [facility] [address] [id number] [address] [place] [address] August, Screen for STD (sexually tra nsmitted disease) Z11.3 [facility] [address] [id number] [address] [place] [address] August, Neuroforaminal stenosis of s jose M99.89 ; Mixed hyperlipidemia E78.2 ; Elevated fasting glucose R73.01 ; Screening mammogram, encounter for Z12.31 and Encounter for well woman exam without gynecological exam Z00.00 [facility] [address] [id number] [address] [place] [address] August, Neuroforaminal stenosis of s pine M99.89 [facility] [address] [id number] [address] [place] [address] August, Essential hypertension I10 ; Hypokalemia E87.6 and Mixed hyperlipidemia E78.2 [place] [address] [id number] [address] [place] [address] Jul, [facility] [address] [id number] [address] [place] [address] Jul, Neuroforaminal stenosis of s jose M99.89 [facility] [address] [id number] [address] [place] [address] Jul, Lateral epicondylitis, right elbow M77.11 [facility] [address] [id number] [address] [place] [address] Jul, [place] [address] [id number] [address] [place] [address] Jun, High ankle sprain of right l ower extremity, initial encounter S93.431A [place] [address] [id number] [address] [place] [address] Jun, Essential hypertension I10 [place] [address] [facility] [id number] [address] [place] [address] Jun, [place] [id number] [place] [address] Jun, [place] [address] [place] [id number] [place] [address] Jun, Neuroforaminal stenosis of s pine M99.89 [place] [address] [address] Jun, Pain of right upper extremit y M79.601 and Essential hypertension I10 [place] [id number] [place] [address] Jun, [place] [address] [address] Jun, Dysuria R30.0 ; Acute cystit is with hematuria N30.01 and Screen for STD (sexually transmitted disease) Z11.[address] [address] May, Chronic pain due to trauma G 89.21 [place] [address] [place] [id number] [address] [place] [address] May, Essential hypertension I10 [place] [id number] [place] [address] May, Neuroforaminal stenosis of s pine M99.89 [place] [address] [place] [id number] [address] [place] [address] Apr, Allergic reaction, initial e ncounter T78.40XA [place] [address] [place] [id number] [address] [place] [address] Apr, Low back pain, unspecified b ack pain laterality, unspecified chronicity, with sciatica presence unspecified M54.5 ; Acute cystitis with hematuria N30.01 ; 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 ; Bilateral acute serous otitis media, recurrence not specified H65.03 ; Mixed hyperlipidemia E78.2 ; Essential hypertension I10 ; Immunization counseling Z71.89 and Encounter for immunization Z23 [facility] [address] [id number] [address] [place] [address] 08 Apr, 2017 Neck pain M54.2 [facility] [address] [id number] [address] [place] [address] Mar, Neuroforaminal stenosis of s pine M99.89 [facility] [address] [id number] [address] [place] [address] Mar, Pharyngitis due to other org anism J02.8 [facility] [address] [id number] [address] [place] [address] Feb, Neuroforaminal stenosis of s pine M99.89 [facility] [address] [id number] [address] [place] [address] 08 Feb, 2017 UTI (urinary tract infection ) N39.0 [facility] [address] [id number] [address] [place] [address] Feb, Recent urinary tract infecti on Z87.440 ; 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 ; Neck pain M54.2 ; Chronic pain due to trauma G89.21 and Recurrent UTI N39.0 [facility] [address] [id number] [address] [place] [address] Feb, [facility] [address] [id number] [address] [place] [address] Jan, Neuroforaminal stenosis of s pine M99.89 [facility] [address] [id number] [address] [place] [address] Dec, Neuroforaminal stenosis of s pine M99.89 [facility] [address] [id number] [address] [place] [id number] 18 Dec, 2016 Acute seasonal allergic rhin itis due to pollen J30.1 [facility] [address] [id number] [address] [place] [address] 08 Dec, 2016 [facility] [address] [id number] [address] [place] [address] 08 Dec, 2016 Acute seasonal allergic rhin itis, unspecified trigger J30.2 ; Allergic conjunctivitis of both eyes H10.13 and Dysfunction of both eustachian tubes H69.83 [place] [address] [id number] [address] [place] [address] 07 Dec, 2016 [place] [address] [facility] [id number] [address] [place] [address] Dec, Nevus D22.9 [place] [address] [id number] [address] [place] [address] Nov, Chronic pain due to trauma G 89.21 and 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 [place] [address] [id number] [address] [place] [address] Nov, Neuroforaminal stenosis of s pine M99.89 ; Essential hypertension I10 ; Mixed hyperlipidemia E78.2 ; Hypokalemia E87.6 ; Neck pain M54.2 and Nevus D22.9 [place] [address] [id number] [address] [place] [address] Oct, Neuroforaminal stenosis of s pine M99.89 [place] [address] [id number] [address] [place] [address] Sep, Neuroforaminal stenosis of s pine M99.89 [place] [address] [id number] [address] [place] [address] Sep, [place] [address] [id number] [address] [place] [address] August, [place] [address] [facility] [id number] [address] [place] [address] August, Neck pain M54.2 and Neurofor aminal stenosis of spine M99.89 [place] [address] [id number] [address] [place] [address] August, Routine gynecological examin ation Z01.419 and Screening breast examination Z12.39 [facility] [address] [id number] [address] [place] [address] Jul, [facility] [address] [id number] [address] [place] [id number] Jul, [facility] [address] [id number] [address] [place] [id number] Jul, Neuroforaminal stenosis of s pine M99.89 [facility] [address] [id number] [address] [place] [phone] Jul, [facility] [address] [id number] [address] [place] [phone] Jul, Neuroforaminal stenosis of l umbar 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 [facility] [address] [id number] [address] [place] [phone] Jul, [facility] [address] [id number] [address] [place] [id number] Jul, [facility] [address] [id number] [address] [place] [phone] Jun, Neuroforaminal stenosis of s pine M99.89 [facility] [address] [id number] [address] [place] [id number] Jun, Uterine leiomyoma, unspecifi ed location D25.9 and Allergic reaction caused by a drug, initial encounter T78.40XA [facility] [address] [id number] [address] [place] [phone] Jun, [facility] [address] [id number] [address] [place] [id number] May, UTI symptoms R39.9 and Pain of right sacroiliac joint M53.3 [facility] [address] [id number] [address] [place] [id number] May, Neuroforaminal stenosis of s pine M99.89 [place] [id number] [id number] [address] [place] [id number] May, [facility] [address] [facility] [id number] [address] [place] [phone] May, Acute mucoid otitis media of left ear H65.112 and Acute non- recurrent maxillary sinusitis J01.00 [facility] [facility] [address] [id number] [address] [place] [phone] May, Acute bacterial conjunctivit is of both eyes H10.33 ; Left arm pain M79.602 and Hypokalemia E87.6 [place] [address] [id number] [address] [place] [id number] Apr, [facility] [address] [facility] [id number] [address] [place] [id number] Apr, Neuroforaminal stenosis of s pine M99.89 ; Neck pain M54.2 ; Chronic pain due to trauma G89.21 ; Mixed hyperlipidemia E78.2 ; Essential hypertension I10 and Hypokalemia E87.6 [place] [address] [address] [facility] [id number] [address] [place] [address] Mar, Oral candidiasis B37.0 ; Nathaniel roforaminal stenosis of spine M99.89 ; Neck pain M54.2 and Chronic pain due to trauma G89.21 [place] [address] [address] [facility] [id number] [address] [place] [address] Feb, [place] [address] [id number] [address] [place] [address] Feb, [place] [address] [address] [facility] [id number] [address] [place] [address] Feb, UTI (urinary tract infection ) N39.0 [place] [address] [address] [facility] [id number] [address] [place] [address] Feb, Dysuria R30.0 [place] [address] [address] [facility] [id number] [address] [place] [address] Feb, Dysuria R30.0 [facility] [address] [id number] [address] [place] [address] Feb, Neuroforaminal stenosis of s pine M99.89 ; Neck pain M54.2 ; Essential hypertension I10 ; Chronic pain due to trauma G89.21 ; Dysuria R30.0 ; Abnormal MRI, shoulder R93.8 and Acute cystitis without hematuria N30.00 [facility] [address] [id number] [address] [place] [address] Jan, [facility] [address] [id number] [address] [place] [address] Jan, [facility] [address] [id number] [address] [place] [address] Jan, [facility] [address] [id number] [address] [place] [address] Jan, Abnormal MRI R93.8 [facility] [address] [id number] [address] [place] [address] 29 Dec, 2015 [facility] [address] [id number] [address] [place] [address] 15 Dec, 2015 Acute pain of left shoulder M25.512 [facility] [address] [id number] [address] [place] [address] 09 Dec, 2015 [facility] [address] [id number] [address] [place] [address] 08 Dec, 2015 [facility] [address] [id number] [address] [place] [address] 07 Dec, 2015 Acute pain of left shoulder M25.512 [facility] [address] [id number] [address] [place] [address] Nov, [facility] [address] [id number] [address] [place] [address] Nov, Neuroforaminal stenosis of s pine M99.89 ; Neck pain M54.2 ; Abnormal mammogram R92.8 ; Essential hypertension I10 and Chronic pain due to trauma G89.21 [facility] [address] [id number] [address] [place] [address] Nov, [facility] [address] [id number] [address] [place] [address] Oct, Acute stress disorder F43.0 [facility] [address] [id number] [address] [place] [address] Oct, [facility] [address] [id number] [address] [place] [address] Oct, [facility] [address] [id number] [address] [place] [address] Oct, [facility] [address] [id number] [address] [place] [address] Sep, [facility] [address] [id number] [address] [place] [address] August, [facility] [address] [id number] [address] [place] [address] Jul, Neuroforaminal stenosis of s pine M99.89 ; Neck pain M54.2 ; Abnormal mammogram R92.8 and Essential hypertension I10 [facility] [address] [id number] [address] [place] [address] Jul, [facility] [address] [id number] [address] [place] [address] Jul, [facility] [address] [id number] [address] [place] [address] Jul, Abnormal mammogram R92.8 [facility] [address] [id number] [address] [place] [address] Jul, [facility] [address] [id number] [address] [place] [address] Jul, UTI (urinary tract infection ) N39.0 [facility] [address] [id number] [address] [place] [address] Jul, Dysuria R30.0 [facility] [address] [id number] [address] [place] [address] Jun, [facility] [address] [facility] [id number] [address] [place] [address] Jun, [facility] [address] [facility] [id number] [address] [place] [address] Jun, Hypokalemia E87.6 and Hematu martina R31.9 [facility] [address] [facility] [id number] [address] [place] [address] Jun, Hypokalemia E87.6 [facility] [address] [facility] [id number] [address] [place] [address] Jun, [facility] [address] [facility] [id number] [address] [place] [address] Jun, Hypokalemia E87.6 [facility] [address] [facility] [id number] [address] [place] [address] Jun, Hypokalemia E87.6 [facility] [address] [facility] [id number] [address] [place] [address] Jun, Neuroforaminal stenosis of s pine M99.89 ; Hypokalemia E87.6 ; Neck pain M54.2 ; Essential hypertension I10 ; Mixed hyperlipidemia E78.2 and Screening breast examination Z12.39 [facility] [address] [facility] [id number] [address] [place] [address] Jun, Dysuria R30.0 ; UTI (urinary tract infection) N39.0 and Hematuria R31.9 [facility] [address] [facility] [id number] [address] [place] [address] May, [facility] [address] [facility] [id number] [address] [place] [address] May, High risk sexual behavior Z7 2.51 ; Hypokalemia E87.6 ; Neuroforaminal stenosis of spine M99.89 ; Neck pain M54.2 ; Essential hypertension I10 ; Mixed hyperlipidemia E78.2 ; STD exposure Z20.2 and Concern about STD in female without diagnosis Z71.1 [facility] [address] [address] 16 May, 2015 Neuroforaminal stenosis of s pine M99.89 ; Neck pain M54.2 ; Hypokalemia E87.6 ; Essential hypertension I10 and Mixed hyperlipidemia E78.2 [facility] [address] [address] 11 May, 2015 [facility] [address] [place] [address] 08 May, 2015 High risk sexual behavior Z7 2.51 ; STD exposure Z20.2 and Concern about STD in female without diagnosis Z71.1 [place] [address] [address] May, [address] [address] Apr, Neuroforaminal stenosis of s pine M99.89 ; Mixed hyperlipidemia E78.2 ; Essential hypertension I10 and Hypokalemia E87.[address] [address] Mar, [address] [address] Mar, Hypokalemia E87.[address] [address] Mar, Neuroforaminal stenosis of s pine M99.89 ; Mixed hyperlipidemia E78.2 ; Neck pain M54.2 ; Essential hypertension I10 ; Abnormal fasting glucose R73.09 ; Hypokalemia E87.6 and Constipation K59.00 [place] [address] [address] [facility] [id number] [address] [place] [address] Feb, Neuroforaminal stenosis of s pine M99.89 ; Mixed hyperlipidemia E78.2 ; Neck pain M54.2 ; Essential hypertension I10 ; Abnormal fasting glucose R73.09 ; Hypokalemia E87.6 and Constipation K59.00 [place] [id number] [facility] [id number] [address] [place] [address] Feb, Elevated fasting blood sugar R73.01 [place] [address] [address] [facility] [id number] [address] [place] [address] Feb, Elevated fasting blood sugar R73.01 [place] [address] [address] [facility] [id number] [address] [place] [address] Feb, Hair loss L65.9 [place] [address] [address] [place] [id number] [address] [place] [address] Feb, Sinusitis J32.9 ; Essential hypertension I10 and Hair loss L65.9 [place] [address] [address] [facility] [id number] [address] [place] [address] Jan, [place] [address] [address] [place] [id number] [address] [place] [address] Jan, Essential hypertension I10 ; Neuroforaminal stenosis of spine M99.89 ; Neck pain M54.2 ; Mixed hyperlipidemia E78.2 and Anxiety F41.9 [place] [address] [facility] [id number] [address] [place] [address] Jan, [place] [address] [address] [facility] [id number] [address] [place] [address] Jan, Mixed hyperlipidemia E78.2 ; Essential (primary) hypertension I10 ; Strain of muscle, fascia and tendon at neck level, subsequent encounter S16.1XXD and Tension-type headache, unspecified, not intractable G44.209 [facility] [address] [facility] [id number] [address] [place] [address] Dec, Lumbar back pain 724.2 and N euroforaminal stenosis of spine 724.00 [facility] [address] [id number] [address] [place] [address] Nov, [facility] [address] [id number] [address] [place] [address] Nov, Lumbar back pain 724.2 and N euroforaminal stenosis of spine 724.00 [facility] [address] [id number] [address] [place] [address] Nov, Edema 782.3 ; Lumbar back pa in 724.2 ; Essential hypertension, benign 401.1 ; Hyperlipemia 272.4 ; Neuroforaminal stenosis of spine 724.00 and Post-concussion headache 339.20 [facility] [address] [id number] [address] [place] [address] Nov, [facility] [address] [id number] [address] [place] [address] Nov, [facility] [address] [id number] [address] [place] [address] Oct, Essential hypertension, sheridan gn 401.1 [facility] [address] [id number] [address] [place] [address] Oct, Edema 782.3 ; Lumbar back pa in 724.2 ; Essential hypertension, benign 401.1 ; Hyperlipemia 272.4 ; Neuroforaminal stenosis of spine 724.00 and Post-concussion headache 339.20 [facility] [address] [id number] [address] [place] [address] Oct, [facility] [address] [id number] [address] [place] [address] Oct, Edema 782.3 [facility] [address] [id number] [address] [place] [address] Oct, Lumbar back pain 724.2 [facility] [address] [id number] [address] [place] [address] Oct, Cervicalgia 723.1 ; Lumbar b ack pain 724.2 and High risk medication use V58.69 [facility] [address] [id number] [address] [place] [address] Sep, [facility] [address] [id number] [address] [place] [address] Sep, Lumbar strain 847.2 [facility] [address] [id number] [address] [place] [address] August, Edema 782.3 and Eustachian t ube dysfunction 381.81 [facility] [address] [id number] [address] [place] [address] August, [facility] [address] [facility] [id number] [address] [place] [address] August, Eustachian tube dysfunction 381.81 [facility] [address] [id number] [address] [place] [address] Jul, Otalgia 388.70 and Otitis me jonathon 382.9 [facility] [address] [id number] [address] [place] [address] Jul, [facility] [address] [id number] [address] [place] [address] Jul, [facility] [address] [id number] [address] [place] [address] Jul, [facility] [address] [id number] [address] [place] [address] Jul, [facility] [address] [id number] [address] [place] [address] Jul, [facility] [address] [id number] [address] [place] [address] Jun, [facility] [address] [id number] [address] [place] [address] Jun, [facility] [address] [id number] [address] [place] [address], [place] [address] Jun, [facility] [address] [id number] [address] [place] [address], [place] [address] May, 2014 [facility] [address] [id number] [address] [place] [address], [place] [address] May, 2014 [facility] [address] [id number] [address] [place] [address], [place] [address] May, 2014 [facility] [address] [id number] [address] [place] [address], [place] [address] May, 2014 [facility] [address] [id number] [address] [place] [address], [place] [address] May, 2014 [facility] [address] [id number] [address] [place] [address], [place] [address] May, [facility] [address] [id number] [address] [place] [address], [place] [address] May, [facility] [address] [id number] [address] [place] [address], [place] [address] May, [facility] [address] [id number] [address] [place] [address], [place] [address] May, [facility] [address] [id number] [address] [place] [address], [place] [address] May, [facility] [address] [id number] [address] [place] [address] Apr, [facility] [address] [id number] [address] [place] [address], [place] [address] Apr, [facility] [address] [id number] [address] [place] [address], [place] [address] Apr, [facility] [address] [id number] [address] [place] [address] Apr, [facility] [address] [id number] [address] [place] [address] Apr, [facility] [address] [id number] [address] [place] [address], [place] [address] Apr, [facility] [address] [id number] [address] [place] [address], [place] [address] Apr, [facility] [address] [id number] [address] [place] [address], [place] [address] Apr, [facility] [address] [id number] [address] [place] [address], [place] [address] Apr, [facility] [address] [id number] [address] [place] [address], [place] [address] Apr, [facility] [address] [id number] [address] [place] [address], [place] [address] Apr, [facility] [address] [id number] [address] [place] [address], [place] [address] Apr, [facility] [address] [id number] [address] [place] [address], [place] [address] Apr, [facility] [address] [id number] [address] [place] [address], [place] [address] Apr, [facility] [address] [id number] [address] [place] [address], [place] [address] Apr, [facility] [address] [id number] [address] [place] [address], [place] [address] Mar, [facility] [address] [id number] [address] [place] [address], [place] [address] Mar, [facility] [address] [id number] [address] [place] [address], [place] [address] Mar, [facility] [address] [id number] [address] [place] [address], [place] [address] Mar, [facility] [address] [id number] [address] [place] [address], [place] [address] Feb, [facility] [address] [id number] [address] [place] [address], [place] [address] 07 Feb, 2014 [facility] [address] [id number] [address] [place] [address], [place] [address] Feb, [facility] [address] [id number] [address] [place] [address], [place] [address] Feb, [facility] [address] [id number] [address] [place] [address], [place] [address] Jan, [facility] [address] [id number] [address] [place] [address], [place] [address] Jan, [facility] [address] [id number] [address] [place] [address], [place] [address] Jan, [facility] [address] [id number] [address] [place] [address], [place] [address] Jan, [facility] [address] [id number] [address] [place] [address], [place] [address] Jan, [facility] [address] [id number] [address] [place] [address], [place] [address] Jan, [facility] [address] [id number] [address] [place] [address], [place] [address] Jan, [facility] [address] [id number] [address] [place] [address], [place] [address] Jan, [facility] [address] [id number] [address] [place] [address], [place] [address] 29 Dec, 2013 [facility] [address] [id number] [address] [place] [address], [place] [address] 29 Dec, 2013 [facility] [address] [id number] [address] [place] [address], [place] [address] 04 Dec, 2013 [facility] [address] [id number] [address] [place] [address], [place] [address] 04 Dec, 2013 [facility] [address] [id number] [address] [place] [address], [place] [address] 14 Oct, 2013 [facility] [address] [id number] [facility] [address] 14 Oct, 2013 [facility] [address] [id number] [facility] [address] Oct, 2013 [facility] [address] [id number] [facility] [address] Oct, 2013 [facility] [address] [id number] [address] [place] [address], [place] [address] Oct, 2013 [facility] [address] [id number] [address] [place] [address], [place] [address] Oct, 2013 [facility] [address] [id number] [address] [place] [address], [place] [address] Oct, 2013 [facility] [address] [id number] [address] [place] [address], [place] [address] Oct, [facility] [address] [id number] [address] [place] [address], [place] [address] Sep, [facility] [address] [id number] [address] [place] [address], [place] [address] Sep, [facility] [address] [id number] [address] [place] [address], [place] [address] Sep, [facility] [address] [id number] [address] [place] [address], [place] [address] Sep, [facility] [address] [id number] [address] [place] [address], [place] [address] Sep, [facility] [address] [id number] [address] [place] [address], [place] [address] Sep, [facility] [address] [id number] [address] [place] [address], [place] [address] Sep, [facility] [address] [id number] [address] [place] [address], [place] [address] Sep, [facility] [address] [id number] [address] [place] [address], [place] [address] Sep, [facility] [address] [id number] [address] [place] [address], [place] [address] Sep, [facility] [address] [id number] [address] [place] [address], [place] [address] August, [facility] [address] [id number] [address] [place] [address], [place] [address] August, [facility] [address] [id number] [address] [place] [address], [place] [address] August, [facility] [address] [id number] [address] [place] [address], [place] [address] August, [facility] [address] [id number] [address] [place] [address], [place] [address] August, [facility] [address] [id number] [address] [place] [address], [place] [address] August, [facility] [address] [id number] [address] [place] [address], [place] [address] August, [facility] [address] [id number] [address] [place] [address], [place] [address] August, [facility] [address] [id number] [address] [place] [address], [place] [address] August, [facility] [address] [id number] [address] [place] [address], [place] [address] August, [facility] [address] [id number] [address] [place] [address], [place] [address] August, [facility] [address] [id number] [address] [place] [address], [place] [address] August, [facility] [address] [id number] [address] [place] [address], [place] [address] Jul, [facility] [address] [id number] [address] [place] [address], [place] [address] Jul, [facility] [address] [id number] [facility] [address] Jul, [facility] [address] [id number] [facility] [address] Jul, [facility] [address] [id number] [facility] [address] Jul, [facility] [address] [id number] [address] [place] [address], [place] [address] Jul, [facility] [address] [id number] [address] [place] [address], [place] [address] Jun, [facility] [address] [id number] [address] [place] [address], [place] [address] Jun, [facility] [address] [id number] [address] [place] [address], [place] [address] May, [facility] [address] [id number] [address] [place] [address], [place] [address] May, [facility] [address] [id number] [address] [place] [address], [place] [address] Apr, [facility] [address] [id number] [address] [place] [address], [place] [address] Apr, [facility] [address] [id number] [address] [place] [address], [place] [address] Apr, [facility] [address] [id number] [address] [place] [address], [place] [address] Apr, [facility] [address] [id number] [address] [place] [address], [place] [address] Apr, [facility] [address] [id number] [address] [place] [address], [place] [address] Apr, [facility] [address] [id number] [address] [place] [address], [place] [address] Apr, [facility] [address] [id number] [address] [place] [address], [place] [address] Apr, [facility] [address] [id number] [address] [place] [address], [place] [address] Apr, [facility] [address] [id number] [address] [place] [address], [place] [address] Apr, [facility] [address] [id number] [address] [place] [address], [place] [address] Apr, [facility] [address] [id number] [address] [place] [address], [place] [address] Apr, [facility] [address] [id number] [address] [place] [address], [place] [address] Apr, [facility] [address] [id number] [address] [place] [address], [place] [address] Mar, [facility] [address] [id number] [address] [place] [address], [place] [address] Mar, [facility] [address] [id number] [address] [place] [address], [place] [address] Mar, [facility] [address] [id number] [address] [place] [address], [place] [address] Mar, [facility] [address] [id number] [address] [place] [address], [place] [address] Feb, [facility] [address] [id number] [address] [place] [address], [place] [address] Feb, [facility] [address] [id number] [address] [place] [address], [place] [address] Feb, [facility] [address] [id number] [address] [place] [address], [place] [address] Feb, [facility] [address] [id number] [address] [place] [address], [place] [address] Jan, [facility] [address] [id number] [address] [place] [address], [place] [address] Jan, [facility] [address] [id number] [address] [place] [address], [place] [address] Jan, [facility] [address] [id number] [address] [place] [address], [place] [address] Jan, [facility] [address] [id number] [address] [place] [address], [place] [address] Jan, [facility] [address] [id number] [address] [place] [address], [place] [address] Jan, [facility] [address] [id number] [address] [place] [address], [place] [address] Jan, [facility] [address] [id number] [address] [place] [address], [place] [address] Jan, [facility] [address] [id number] [address] [place] [address], [place] [address] Jan, [facility] [address] [id number] [address] [place] [address], [place] [address] 26 Dec, 2012 [facility] [address] [id number] [address] [place] [address], [place] [address] 16 Dec, 2012 [facility] [address] [id number] [address] [place] [address], [place] [address] 16 Dec, 2012 [facility] [address] [id number] [address] [place] [address], [place] [address] 13 Dec, 2012 [facility] [address] [id number] [address] [place] [address], [place] [address] 17 Nov, 2012 [facility] [address] [id number] [address] [place] [address], [place] [address] 17 Nov, 2012 [facility] [address] [id number] [address] [place] [address], [place] [address] 14 Nov, 2012 [facility] [address] [id number] [address] [place] [address], [place] [address] 05 Nov, 2012 [facility] [address] [id number] [address] [place] [address], [place] [address] Oct, [facility] [address] [id number] [address] [place] [address], [place] [address] Sep, [facility] [address] [id number] [address] [place] [address], [place] [address] August, [facility] [address] [id number] [address] [place] [address], [place] [address] August, [facility] [address] [id number] [address] [place] [address], [place] [address] August, [facility] [address] [id number] [address] [place] [address], [place] [address] August, [facility] [address] [id number] [address] [place] [address], [place] [address] August, [facility] [address] [id number] [address] [place] [address], [place] [address] August, [facility] [address] [id number] [address] [place] [address], [place] [address] August, [facility] [address] [id number] [address] [place] [address], [place] [address] August, [facility] [address] [id number] [address] [place] [address], [place] [address] August, [facility] [address] [id number] [address] [place] [address], [place] [address] August, [facility] [address] [id number] [address] [place] [address], [place] [address] August, [facility] [address] [id number] [address] [place] [address], [place] [address] August, [facility] [address] [id number] [address] [place] [address], [place] [address] Jul, [facility] [address] [id number] [address] [place] [address], [place] [address] Jul, [facility] [address] [id number] [address] [place] [address] 18 Jul, 2012 [facility] [address] [id number] [address] [place] [address], [place] [address] 15 Jul, 2012 [facility] [address] [id number] [address] [place] [address], [place] [address] Jul, [facility] [address] [id number] [address] [place] [address], [place] [address] Jul, [facility] [address] [id number] [address] [place] [address], [place] [address] Jul, [facility] [address] [id number] [address] [place] [address], [place] [address] Jul, [facility] [address] [id number] [address] [place] [address], [place] [address] Jul, [facility] [address] [id number] [address] [place] [address], [place] [address] Jul, [facility] [address] [id number] [address] [place] [address], [place] [address] Jul, [facility] [address] [id number] [address] [place] [address], [place] [address] Jun, [facility] [address] [id number] [address] [place] [address], [place] [address] Jun, [facility] [address] [id number] [address] [place] [address], [place] [address] Jun, [facility] [address] [id number] [address] [place] [address], [place] [address] Jun, [facility] [address] [id number] [address] [place] [address], [place] [address] May, [facility] [address] [id number] [address] [place] [address], [place] [address] 14 May, 2012 [facility] [address] [id number] [address] [place] [address], [place] [address] 05 May, 2012 [facility] [address] [id number] [address] [place] [address], [place] [address] May, [facility] [address] [id number] [address] [place] [address], [place] [address] May, [facility] [address] [id number] [address] [place] [address], [place] [address] May, [facility] [address] [id number] [address] [place] [address], [place] [address] Apr, [facility] [address] [id number] [address] [place] [address], [place] [address] Apr, [facility] [address] [id number] [address] [place] [address], [place] [address] Apr, [facility] [address] [id number] [address] [place] [address], [place] [address] Apr, [facility] [address] [id number] [address] [place] [address], [place] [address] 15 Mar, 2012 [facility] [address] [id number] [address] [place] [address], [place] [address] Mar, [facility] [address] [id number] [address] [place] [address], [place] [address] 14 Mar, 2012 [facility] [address] [id number] [address] [place] [address], [place] [address] 14 Mar, 2012 [facility] [address] [id number] [address] [place] [address], [place] [address] 14 Mar, 2012 [facility] [address] [id number] [address] [place] [address], [place] [address] 06 Mar, 2012 [facility] [address] [id number] [address] [place] [address], [place] [address] 06 Mar, 2012 [facility] [address] [id number] [address] [place] [address], [place] [address] Feb, [facility] [address] [id number] [address] [place] [address] Feb, [facility] [address] [id number] [address] [place] [address], [place] [address] Feb, [facility] [address] [id number] [address] [place] [address], [place] [address] Feb, [facility] [address] [id number] [address] [place] [address], [place] [address] Jan, [facility] [address] [id number] [address] [place] [address], [place] [address] Jan, [facility] [address] [id number] [address] [place] [address], [place] [address] Jan, [facility] [address] [id number] [address] [place] [address], [place] [address] Jan, [facility] [address] [id number] [address] [place] [address], [place] [address] Jan, [facility] [address] [id number] [address] [place] [address], [place] [address] Jan, [facility] [address] [id number] [address] [place] [address], [place] [address] Dec, [facility] [address] [id number] [address] [place] [address], [place] [address] Dec, [facility] [address] [id number] [address] [place] [address], [place] [address] Nov, [facility] [address] [id number] [address] [place] [address], [place] [address] Sep, [facility] [address] [id number] [address] [place] [address], [place] [address] August, [facility] [address] [id number] [address] [place] [address], [place] [address] August, [facility] [address] [id number] [address] [place] [address], [place] [address] August, [facility] [address] [id number] [address] [place] [address], [place] [address] 10 Aug, 2011 [facility] [address] [id number] [address] [place] [address], [place] [address] August, [facility] [address] [id number] [address] [place] [address], [place] [address] Jun, [facility] [address] [id number] [address] [place] [address], [place] [address] Jun, [facility] [address] [id number] [address] [place] [address], [place] [address] Apr, [facility] [address] [id number] [address] [place] [address], [place] [address] Apr, [facility] [address] [id number] [address] [place] [address], [place] [address] Mar, [facility] [address] [id number] [address] [place] [address], [place] [address] Feb, [facility] [address] [id number] [address] [place] [address], [place] [address] Feb, [facility] [address] [id number] [address] [place] [address], [place] [address] Feb, [facility] [address] [id number] [address] [place] [address], [place] [address] 17 Jan, 2011 [facility] [address] [id number] [address] [place] [address], [place] [address] 15 Jan, 2011 [facility] [address] [id number] [address] [place] [address], [place] [address] 15 Jan, 2011 [facility] [address] [id number] [address] [place] [address], [place] [address] 14 Jan, 2011 [facility] [address] [id number] [address] [place] [address], [place] [address] 15 May, 2010 [facility] [address] [id number] [address] [place] [address], [place] [address] Mar, [facility] [address] [facility] [id number] [address] [place] [address] Oct, [facility] [address] [facility] [id number] [address] [place] [address] Sep, [facility] [address] [facility] [id number] [address] [place] [address] Mar, [facility] [address] [facility] [id number] [address] [place] [address] Jan, [facility] [address] [facility] [id number] [address] [place] [address] Jan, [facility] [address] [facility] [id number] [address] [place] [address] May, IMMUNIZATIONS No Known Immunizations SOCIAL HISTORY Never Assessed REASON FOR VISIT PLAN OF CARE VITAL SIGNS Height 62 in 2012-06-27 Weight 173.56 lbs 2012-06-27 Temperature 97 degrees Fahrenheit 2012-06-27 Heart Rate 78 bpm 2012-06-27 Respiratory Rate 18 2012-06-27 Blood pressure systolic 130 mmHg 2012-06-27 Blood pressure diastolic 84 mmHg 2012-06-27 MEDICATIONS Unknown Medications RESULTS No Results PROCEDURES Procedure Date Ordered Result Body Site URINE TEST June 27, 2012 BX OF CERVIX W/SCOPE, LEEP June 27, 2012 INSTRUCTIONS MEDICATIONS ADMINISTERED No Known Medications [...]
--- OUTSIDE RECORDS SUMMARY | 2019-11-23 05:36 | XMS REPORT ---
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 Active [id number] Problem Essential hypertension I10 Active 38112888 Problem Mixed hyperlipidemia E78.2 Active 13148774 Problem Other chronic pain G89.29 Active 8 5836242 Problem Neck pain M54.2 Active 86716617 Problem Slow transit constipation K59.01 Acti ve 56013775 Problem Anxiety F41.9 Active 42312334 Problem Hypokalemia E87.6 Active 11173591 Problem Chronic pain due to trauma G89.21 Act juanis 603149971 Problem Seasonal allergies J30.2 Active 4 16100949 Problem Rhinosinusitis J32.9 Active 26704 4004 ALLERGIES No Information ENCOUNTERS Encounter Location Date Diagnosis [place] [address] [facility] [id number] [address] [place] [phone] Jan, [facility] [address] [facility] [id number] [address] [place] [phone] Oct, Neuroforaminal stenosis of s pine M99.89 [facility] [address] [facility] [id number] [address] [place] [phone] Oct, [facility] [address] 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 [id number] [address] [place] [address] Sep, Neuroforaminal stenosis of s pine M99.89 [facility] [address] [facility] [id number] [address] [place] [phone] Sep, Encounter for laboratory luisa ting for COVID-19 virus V73.89 [place] [address] [facility] [id number] [address] [place] [address] August, Neuroforaminal stenosis of s pine M99.89 [place] [address] [facility] [id number] [address] [place] [address] August, Acute bacterial conjunctivit is of right eye H10.31 [facility] [address] [facility] [id number] [address] [place] [address] August, Low back pain M54.5 ; Other chronic pain G89.29 and Dysuria R30.0 [facility] [address] [facility] [id number] [address] [place] [address] August, [place] [address] [facility] [id number] [address] [place] [address] Jul, Neuroforaminal stenosis of s pine M99.89 [facility] [address] [facility] [id number] [address] [place] [address] Jul, Allergic conjunctivitis of b oth eyes H10.13 [facility] [address] [id number] [address] [place] [address] Jun, Hypokalemia E87.6 [facility] [address] [id number] [address] [place] [id number] Jun, [facility] [address] [id number] [address] [place] [address] Jun, Neuroforaminal stenosis of s jose M99.89 [place] [address] [id number] [address] [place] [phone] 19 Jun, 2019 Lateral epicondylitis, left elbow M77.12 and Medial epicondylitis, left elbow M77.02 [place] [address] [id number] [address] [place] [address] 16 Jun, 2019 Foraminal stenosis of lumbar region M48.061 ; Segmental dysfunction of thoracic region M99.02 ; Segmental dysfunction of lumbar region M99.03 and Segmental dysfunction of sacral region M99.04 [place] [address] [id number] [address] [place] [address] 28 May, 2019 Left elbow pain M25.522 [place] [address] [facility] [id number] [address] [place] [address] May, [place] [address] [id number] [address] [place] [address] May, Left elbow pain M25.522 [place] [address] [id number] [address] [place] [address] May, Neuroforaminal stenosis of s jose M99.89 [facility] [address] [facility] [id number] [address] [place] [address] 26 May, 2019 Rhinosinusitis J32.9 ; Left elbow pain M25.522 and Neck pain M54.2 [place] [address] [facility] [id number] [address] [place] [address] 14 May, 2019 Lateral epicondylitis of lef t elbow M77.12 [facility] [address] [id number] [address] [place] [address] Apr, Neuroforaminal stenosis of s pine M99.89 [facility] [address] [id number] [address] [place] [address] Apr, Essential hypertension I10 a nd Mixed hyperlipidemia E78.2 [facility] [address] [id number] [address] [place] [address] Mar, Neuroforaminal stenosis of s jose M99.89 [facility] [address] [id number] [address] [place] [address] Mar, Epicondylitis, lateral, left M77.12 [facility] [address] [id number] [address] [place] [address] Mar, [facility] [address] [id number] [address] [place] [address] Mar, Neuroforaminal stenosis of s jose M99.89 [facility] [address] [id number] [address] [place] [address] Feb, Neuroforaminal stenosis of ayla garcia M99.89 ; Essential hypertension I10 ; Mixed hyperlipidemia E78.2 ; Encounter for immunization Z23 and Seasonal allergies J30.2 [facility] [address] [id number] [address] [place] [address] Jan, Neuroforaminal stenosis of s pine M99.89 [facility] [address] [id number] [address] [place] [address] Dec, Neuroforaminal stenosis of s pine M99.89 [facility] [address] [id number] [address] [place] [address] Dec, Neuroforaminal stenosis of s pine M99.89 [facility] [address] [id number] [address] [place] [address] Nov, [facility] [address] [id number] [address] [place] [address] Nov, Neuroforaminal stenosis of s pine M99.89 [facility] [address] [id number] [address] [place] [address] Nov, Acute non-recurrent maxillar y sinusitis J01.00 [facility] [address] [id number] [address] [place] [address] Oct, Hypokalemia E87.6 [facility] [address] [id number] [address] [place] [address] Oct, Wasp sting, undetermined int ent, initial encounter T63.464A and Cellulitis of left lower extremity L03.116 [facility] [address] [id number] [address] [place] [address] Oct, Neuroforaminal stenosis of s pine M99.89 [facility] [address] [id number] [address] [place] [address] Sep, [facility] [address] [id number] [address] [place] [address] Sep, [facility] [address] [id number] [address] [place] [address] Sep, Routine screening for STI (s exually transmitted infection) Z11.3 [facility] [address] [id number] [address] [place] [address] Sep, Routine screening for STI (s exually transmitted infection) Z11.3 ; Well woman exam with routine gynecological exam Z01.419 and Breast cancer screening Z12.39 [facility] [address] [id number] [address] [place] [address] Sep, Neuroforaminal stenosis of s pine M99.89 [facility] [address] [id number] [address] [place] [address] August, Neuroforaminal stenosis of s pine M99.89 [facility] [address] [id number] [address] [place] [address] August, Neuroforaminal stenosis of s pine M99.89 ; Chronic pain due to trauma G89.21 and Mixed hyperlipidemia E78.2 [facility] [address] [id number] [address] [place] [address] Jul, Viral upper respiratory illn ess J06.9 and Acute non-recurrent frontal sinusitis J01.10 [facility] [address] [id number] [address] [place] [address] Jul, Congestion of nasal sinus R0 9.81 [facility] [address] [id number] [address] [place] [address] Jul, Neuroforaminal stenosis of s pine M99.89 and Essential hypertension I10 [facility] [address] [id number] [address] [place] [address] May, Neuroforaminal stenosis of s pine M99.89 [facility] [address] [id number] [address] [place] [address] May, [facility] [address] [id number] [address] [place] [address] May, Congestion of nasal sinus R0 9.81 [facility] [address] [id number] [address] [place] [address] May, [facility] [address] [id number] [address] [place] [address] Apr, Neuroforaminal stenosis of s pine M99.89 [facility] [address] [id number] [address] [place] [address] Apr, Neuroforaminal stenosis of s pine M99.89 and Chronic pain due to trauma G89.21 [facility] [address] [id number] [address] [place] [address] Mar, UTI (urinary tract infection ) N39.0 [facility] [address] [id number] [address] [place] [address] Mar, Vertigo R42 [facility] [address] [id number] [address] [place] [phone] 03 Mar, 2018 Neuroforaminal stenosis of s jose M99.89 [facility] [address] [id number] [address] [place] [address] Feb, Extensor tendon disruption M 67.89 [facility] [address] [id number] [address] [place] [address] Feb, Neuroforaminal stenosis of s pine M99.89 and High risk medication use Z79.899 [facility] [address] [id number] [address] [place] [address] Jan, Hypokalemia E87.6 [facility] [address] [id number] [address] [place] [address] Jan, Flank pain R10.9 and Acute r ight-sided low back pain without sciatica M54.5 [facility] [address] [id number] [address] [place] [address] Jan, Hypokalemia E87.6 [facility] [address] [id number] [address] [place] [address] Jan, [facility] [address] [facility] [id number] [address] [place] [address] Jan, URI, acute J06.9 [facility] [address] [id number] [address] [place] [phone] 05 Jan, 2018 Neuroforaminal stenosis of s jose M99.89 [facility] [address] [id number] [address] [place] [phone] 13 Dec, 2017 Lateral epicondylitis, right elbow M77.11 [facility] [address] [facility] [id number] [address] [place] [address] 11 Dec, 2017 Allergic rhinitis due to monica rosalina, unspecified seasonality J30.1 and Allergic conjunctivitis of both eyes H10.13 [place] [address] [address] [place] [id number] [address] [place] [address] Dec, Neuroforaminal stenosis of s pine M99.89 [place] [address] [address] [place] [id number] [address] [place] [address] Dec, Mixed hyperlipidemia E78.2 [place] [address] [place] [id number] [place] [address] Dec, Abnormal glucose R73.09 ; Ab normal renal ultrasound R93.429 ; Dysuria R30.0 ; Cystitis without hematuria N30.90 ; Hypokalemia E87.6 ; Mixed hyperlipidemia E78.2 and Hematuria, unspecified type R31.9 [place] [address] [place] [id number] [place] [address] Nov, Hypokalemia E87.6 ; Mixed hy perlipidemia E78.2 and Hematuria, unspecified type R31.9 [place] [address] [place] [id number] [address] [place] [address] Nov, [place] [address] [place] [id number] [address] [place] [address] Nov, Hypokalemia E87.6 [place] [address] [place] [id number] [address] [place] [address] Nov, [place] [address] [place] [id number] [address] [place] [address] Nov, Abnormal renal ultrasound R9 3.429 [place] [address] [place] [id number] [address] [place] [address] Nov, Abnormal renal ultrasound R9 3.429 [place] [address] 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 [place] [address] [place] [id number] [address] [place] [address] Nov, Dysuria R30.0 [facility] [address] [id number] [address] [place] [address] Oct, Lateral epicondylitis, right elbow M77.11 [facility] [address] [id number] [address] [place] [address] Oct, Neuroforaminal stenosis of s pine M99.89 ; Visit for TB skin test Z11.1 and Essential hypertension I10 [place] [address] [id number] [address] [place] [address] Oct, [place] [address] [id number] [address] [place] [address] Oct, Neuroforaminal stenosis of s pine M99.89 [place] [address] [id number] [address] [place] [phone] Oct, Visit for TB skin test Z11.1 [place] [address] [id number] [address] [place] [address] Oct, Cystitis without hematuria N 30.90 [place] [address] [id number] [address] [place] [address] Sep, Screening breast examination Z12.39 [place] [address] [id number] [address] [place] [phone] Sep, Dysuria R30.0 and Cystitis w ithout hematuria N30.90 [place] [address] [id number] [address] [place] [address] Sep, Essential hypertension I10 a nd 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 [place] [address] [id number] [address] [place] [address] Sep, Abnormal glucose R73.09 [place] [address] [id number] [address] [place] [address] August, Lateral epicondylitis, right elbow M77.11 [facility] [address] [id number] [address] [place] [address] August, Screen for STD (sexually tra nsmitted disease) Z11.3 [facility] [address] [id number] [address] [place] [address] August, Neuroforaminal stenosis of s jose M99.89 ; Mixed hyperlipidemia E78.2 ; Elevated fasting glucose R73.01 ; Screening mammogram, encounter for Z12.31 and Encounter for well woman exam without gynecological exam Z00.00 [facility] [address] [id number] [address] [place] [address] August, Neuroforaminal stenosis of s pine M99.89 [facility] [address] [id number] [address] [place] [address] August, Essential hypertension I10 ; Hypokalemia E87.6 and Mixed hyperlipidemia E78.2 [place] [address] [id number] [address] [place] [address] Jul, [facility] [address] [id number] [address] [place] [address] Jul, Neuroforaminal stenosis of s jose M99.89 [facility] [address] [id number] [address] [place] [address] Jul, Lateral epicondylitis, right elbow M77.11 [facility] [address] [id number] [address] [place] [address] Jul, [place] [address] [id number] [address] [place] [address] Jun, High ankle sprain of right l ower extremity, initial encounter S93.431A [place] [address] [id number] [address] [place] [address] Jun, Essential hypertension I10 [place] [address] [facility] [id number] [address] [place] [address] Jun, [place] [id number] [place] [address] Jun, [place] [address] [place] [id number] [place] [address] Jun, Neuroforaminal stenosis of s pine M99.89 [place] [address] [address] Jun, Pain of right upper extremit y M79.601 and Essential hypertension I10 [place] [id number] [place] [address] Jun, [place] [address] [address] Jun, Dysuria R30.0 ; Acute cystit is with hematuria N30.01 and Screen for STD (sexually transmitted disease) Z11.[address] [address] May, Chronic pain due to trauma G 89.21 [place] [address] [place] [id number] [address] [place] [address] May, Essential hypertension I10 [place] [id number] [place] [address] May, Neuroforaminal stenosis of s pine M99.89 [place] [address] [place] [id number] [address] [place] [address] Apr, Allergic reaction, initial e ncounter T78.40XA [place] [address] [place] [id number] [address] [place] [address] Apr, Low back pain, unspecified b ack pain laterality, unspecified chronicity, with sciatica presence unspecified M54.5 ; Acute cystitis with hematuria N30.01 ; 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 ; Bilateral acute serous otitis media, recurrence not specified H65.03 ; Mixed hyperlipidemia E78.2 ; Essential hypertension I10 ; Immunization counseling Z71.89 and Encounter for immunization Z23 [facility] [address] [id number] [address] [place] [phone] 08 Apr, 2017 Neck pain M54.2 [facility] [address] [id number] [address] [place] [address] Mar, Neuroforaminal stenosis of s pine M99.89 [facility] [address] [id number] [address] [place] [address] Mar, Pharyngitis due to other org anism J02.8 [facility] [address] [id number] [address] [place] [address] Feb, Neuroforaminal stenosis of s pine M99.89 [facility] [address] [id number] [address] [place] [phone] 08 Feb, 2017 UTI (urinary tract infection ) N39.0 [facility] [address] [id number] [address] [place] [address] Feb, Recent urinary tract infecti on Z87.440 ; 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 ; Neck pain M54.2 ; Chronic pain due to trauma G89.21 and Recurrent UTI N39.0 [facility] [address] [id number] [address] [place] [id number] Feb, [facility] [address] [id number] [address] [place] [phone] Jan, Neuroforaminal stenosis of s pine M99.89 [facility] [address] [id number] [address] [place] [phone] Dec, Neuroforaminal stenosis of s pine M99.89 [facility] [address] [id number] [address] [place] [phone] 18 Dec, 2016 Acute seasonal allergic rhin itis due to pollen J30.1 [facility] [address] [id number] [address] [place] [phone] 08 Dec, 2016 [facility] [address] [id number] [address] [place] [phone] 08 Dec, 2016 Acute seasonal allergic rhin itis, unspecified trigger J30.2 ; Allergic conjunctivitis of both eyes H10.13 and Dysfunction of both eustachian tubes H69.83 [facility] [address] [id number] [address] [place] [phone] 07 Dec, 2016 [facility] [address] 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 [facility] [address] [id number] [address] [place] [phone] Nov, Neuroforaminal stenosis of s pine M99.89 ; Essential hypertension I10 ; Mixed hyperlipidemia E78.2 ; Hypokalemia E87.6 ; Neck pain M54.2 and Nevus D22.9 [facility] [address] [id number] [address] [place] [phone] Oct, Neuroforaminal stenosis of s pine M99.89 [facility] [address] [id number] [address] [place] [phone] Sep, Neuroforaminal stenosis of s pine M99.89 [facility] [address] [id number] [address] [place] [phone] Sep, [facility] [address] [id number] [address] [place] [phone] August, [facility] [address] [facility] [id number] [address] [place] [phone] August, Neck pain M54.2 and Neurofor aminal stenosis of spine M99.89 [facility] [address] [id number] [address] [place] [phone] August, Routine gynecological examin ation Z01.419 and Screening breast examination Z12.39 [facility] [address] [id number] [address] [place] [id number] Jul, [facility] [address] [id number] [address] [place] [id number] Jul, [facility] [address] [id number] [address] [place] [address] Jul, Neuroforaminal stenosis of s pine M99.89 [facility] [address] [id number] [address] [place] [address] Jul, [facility] [address] [id number] [address] [place] [phone] Jul, Neuroforaminal stenosis of l umbar 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 [facility] [address] [id number] [address] [place] [phone] Jul, [facility] [address] [id number] [address] [place] [id number] Jul, [facility] [address] [id number] [address] [place] [address] Jun, Neuroforaminal stenosis of s pine M99.89 [facility] [address] [id number] [address] [place] [address] Jun, Uterine leiomyoma, unspecifi ed location D25.9 and Allergic reaction caused by a drug, initial encounter T78.40XA [facility] [address] [id number] [address] [place] [address] Jun, [facility] [address] [id number] [address] [place] [phone] May, UTI symptoms R39.9 and Pain of right sacroiliac joint M53.3 [facility] [address] [id number] [address] [place] [id number] May, Neuroforaminal stenosis of s pine M99.89 [facility] [place] [address] [id number] [address] [place] [address] May, [facility] [address] [facility] [id number] [address] [place] [address] May, Acute mucoid otitis media of left ear H65.112 and Acute non- recurrent maxillary sinusitis J01.00 [facility] [place] [address] [id number] [address] [place] [address] May, Acute bacterial conjunctivit is of both eyes H10.33 ; Left arm pain M79.602 and Hypokalemia E87.6 [facility] [place] [address] [id number] [address] [place] [phone] Apr, [facility] [address] [facility] [id number] [address] [place] [address] Apr, Neuroforaminal stenosis of s pine M99.89 ; Neck pain M54.2 ; Chronic pain due to trauma G89.21 ; Mixed hyperlipidemia E78.2 ; Essential hypertension I10 and Hypokalemia E87.6 [place] [address] [facility] [id number] [address] [place] [address] Mar, Oral candidiasis B37.0 ; Nathaniel roforaminal stenosis of spine M99.89 ; Neck pain M54.2 and Chronic pain due to trauma G89.21 [place] [address] [facility] [id number] [address] [place] [phone] Feb, [place] [address] [id number] [address] [place] [phone] Feb, [place] [address] [facility] [id number] [address] [place] [phone] Feb, UTI (urinary tract infection ) N39.0 [place] [address] [facility] [id number] [address] [place] [phone] Feb, Dysuria R30.0 [place] [address] [facility] [id number] [address] [place] [phone] Feb, Dysuria R30.0 [facility] [address] [id number] [address] [place] [address] Feb, Neuroforaminal stenosis of s pine M99.89 ; Neck pain M54.2 ; Essential hypertension I10 ; Chronic pain due to trauma G89.21 ; Dysuria R30.0 ; Abnormal MRI, shoulder R93.8 and Acute cystitis without hematuria N30.00 [facility] [address] [id number] [address] [place] [phone] Jan, [facility] [address] [id number] [address] [place] [phone] Jan, [facility] [address] [id number] [address] [place] [address] Jan, [facility] [address] [id number] [address] [place] [phone] Jan, Abnormal MRI R93.8 [facility] [address] [id number] [address] [place] [phone] 29 Dec, 2015 [facility] [address] [id number] [address] [place] [id number] 15 Dec, 2015 Acute pain of left shoulder M25.512 [facility] [address] [id number] [address] [place] [id number] 09 Dec, 2015 [facility] [address] [id number] [address] [place] [phone] 08 Dec, 2015 [facility] [address] [id number] [address] [place] [phone] 07 Dec, 2015 Acute pain of left shoulder M25.512 [facility] [address] [id number] [address] [place] [address] Nov, [facility] [address] [id number] [address] [place] [address] Nov, Neuroforaminal stenosis of s pine M99.89 ; Neck pain M54.2 ; Abnormal mammogram R92.8 ; Essential hypertension I10 and Chronic pain due to trauma G89.21 [facility] [address] [id number] [address] [place] [phone] Nov, [facility] [address] [id number] [address] [place] [phone] Oct, Acute stress disorder F43.0 [facility] [address] [id number] [address] [place] [phone] Oct, [facility] [address] [id number] [address] [place] [phone] Oct, [facility] [address] [id number] [address] [place] [phone] Oct, [facility] [address] [id number] [address] [place] [phone] Sep, [facility] [address] [id number] [address] [place] [phone] August, [facility] [address] [id number] [address] [place] [address] Jul, Neuroforaminal stenosis of s pine M99.89 ; Neck pain M54.2 ; Abnormal mammogram R92.8 and Essential hypertension I10 [facility] [address] [id number] [address] [place] [phone] Jul, [facility] [address] [id number] [address] [place] [phone] Jul, [facility] [address] [id number] [address] [place] [address] Jul, Abnormal mammogram R92.8 [facility] [address] [id number] [address] [place] [address] Jul, [facility] [address] [id number] [address] [place] [id number] Jul, UTI (urinary tract infection ) N39.0 [facility] [address] [id number] [address] [place] [phone] Jul, Dysuria R30.0 [facility] [address] [id number] [address] [place] [phone] Jun, [facility] [address] [facility] [id number] [address] [place] [phone] Jun, [facility] [address] [facility] [id number] [address] [place] [phone] Jun, Hypokalemia E87.6 and Hematu martina R31.9 [facility] [address] [facility] [id number] [address] [place] [phone] Jun, Hypokalemia E87.6 [facility] [address] [facility] [id number] [address] [place] [phone] Jun, [facility] [address] [facility] [id number] [address] [place] [phone] Jun, Hypokalemia E87.6 [facility] [address] [facility] [id number] [address] [place] [phone] Jun, Hypokalemia E87.6 [facility] [address] [facility] [id number] [address] [place] [address] Jun, Neuroforaminal stenosis of s pine M99.89 ; Hypokalemia E87.6 ; Neck pain M54.2 ; Essential hypertension I10 ; Mixed hyperlipidemia E78.2 and Screening breast examination Z12.39 [facility] [address] [facility] [id number] [address] [place] [phone] Jun, Dysuria R30.0 ; UTI (urinary tract infection) N39.0 and Hematuria R31.9 [facility] [address] [facility] [id number] [address] [place] [phone] May, [facility] [address] [facility] [id number] [address] [place] [address] May, High risk sexual behavior Z7 2.51 ; Hypokalemia E87.6 ; Neuroforaminal stenosis of spine M99.89 ; Neck pain M54.2 ; Essential hypertension I10 ; Mixed hyperlipidemia E78.2 ; STD exposure Z20.2 and Concern about STD in female without diagnosis Z71.1 [facility] [address] [id number] 16 May, 2015 Neuroforaminal stenosis of s pine M99.89 ; Neck pain M54.2 ; Hypokalemia E87.6 ; Essential hypertension I10 and Mixed hyperlipidemia E78.2 [facility] [address] [id number] 11 May, 2015 [facility] [address] [place] [address] 08 May, 2015 High risk sexual behavior Z7 2.51 ; STD exposure Z20.2 and Concern about STD in female without diagnosis Z71.1 [place] [address] [id number] May, [address] [address] Apr, Neuroforaminal stenosis of s pine M99.89 ; Mixed hyperlipidemia E78.2 ; Essential hypertension I10 and Hypokalemia E87.[address] [address] Mar, [address] [address] Mar, Hypokalemia E87.[address] [address] Mar, Neuroforaminal stenosis of s pine M99.89 ; Mixed hyperlipidemia E78.2 ; Neck pain M54.2 ; Essential hypertension I10 ; Abnormal fasting glucose R73.09 ; Hypokalemia E87.6 and Constipation K59.00 [place] [address] [facility] [id number] [address] [place] [address] Feb, Neuroforaminal stenosis of s pine M99.89 ; Mixed hyperlipidemia E78.2 ; Neck pain M54.2 ; Essential hypertension I10 ; Abnormal fasting glucose R73.09 ; Hypokalemia E87.6 and Constipation K59.00 [place] [address] [facility] [id number] [address] [place] [address] Feb, Elevated fasting blood sugar R73.01 [place] [address] [facility] [id number] [address] [place] [address] Feb, Elevated fasting blood sugar R73.01 [place] [address] [facility] [id number] [address] [place] [address] Feb, Hair loss L65.9 [place] [address] [place] [id number] [address] [place] [phone] Feb, Sinusitis J32.9 ; Essential hypertension I10 and Hair loss L65.9 [place] [address] [facility] [id number] [address] [place] [phone] Jan, [place] [address] [place] [id number] [address] [place] [address] Jan, Essential hypertension I10 ; Neuroforaminal stenosis of spine M99.89 ; Neck pain M54.2 ; Mixed hyperlipidemia E78.2 and Anxiety F41.9 [place] [address] [facility] [id number] [address] [place] [phone] Jan, [place] [address] [facility] [id number] [address] [place] [address] Jan, Mixed hyperlipidemia E78.2 ; Essential (primary) hypertension I10 ; Strain of muscle, fascia and tendon at neck level, subsequent encounter S16.1XXD and Tension-type headache, unspecified, not intractable G44.209 [facility] [address] [facility] [id number] [address] [place] [address] Dec, Lumbar back pain 724.2 and N euroforaminal stenosis of spine 724.00 [facility] [address] [id number] [address] [place] [address] Nov, [facility] [address] [id number] [address] [place] [address] Nov, Lumbar back pain 724.2 and N euroforaminal stenosis of spine 724.00 [facility] [address] [id number] [address] [place] [id number] Nov, Edema 782.3 ; Lumbar back pa in 724.2 ; Essential hypertension, benign 401.1 ; Hyperlipemia 272.4 ; Neuroforaminal stenosis of spine 724.00 and Post-concussion headache 339.20 [facility] [address] [id number] [address] [place] [address] Nov, [facility] [address] [id number] [address] [place] [phone] Nov, [facility] [address] [id number] [address] [place] [address] Oct, Essential hypertension, sheridan gn 401.1 [facility] [address] [id number] [address] [place] [address] Oct, Edema 782.3 ; Lumbar back pa in 724.2 ; Essential hypertension, benign 401.1 ; Hyperlipemia 272.4 ; Neuroforaminal stenosis of spine 724.00 and Post-concussion headache 339.20 [facility] [address] [id number] [address] [place] [phone] Oct, [facility] [address] [id number] [address] [place] [address] Oct, Edema 782.3 [facility] [address] [id number] [address] [place] [phone] Oct, Lumbar back pain 724.2 [facility] [address] [id number] [address] [place] [address] Oct, Cervicalgia 723.1 ; Lumbar b ack pain 724.2 and High risk medication use V58.69 [facility] [address] [id number] [address] [place] [address] Sep, [facility] [address] [id number] [address] [place] [address] Sep, Lumbar strain 847.2 [facility] [address] [id number] [address] [place] [address] August, Edema 782.3 and Eustachian t ube dysfunction 381.81 [facility] [address] [id number] [address] [place] [address] August, [facility] [address] [facility] [id number] [address] [place] [address] August, Eustachian tube dysfunction 381.81 [facility] [address] [id number] [address] [place] [address] Jul, Otalgia 388.70 and Otitis me jonathon 382.9 [facility] [address] [id number] [address] [place] [id number] Jul, [facility] [address] [id number] [address] [place] [id number] Jul, [facility] [address] [id number] [address] [place] [phone] Jul, [facility] [address] [id number] [address] [place] [phone] Jul, [facility] [address] [id number] [address] [place] [phone] Jul, [facility] [address] [id number] [address] [place] [phone] Jun, [facility] [address] [id number] [address] [place] [phone] Jun, [facility] [address] [id number] [address] [place] [address], [place] [address] Jun, [facility] [address] [id number] [address] [place] [address], [place] [address] May, 2014 [facility] [address] [id number] [address] [place] [address], [place] [address] May, 2014 [facility] [address] [id number] [address] [place] [address], [place] [address] May, 2014 [facility] [address] [id number] [address] [place] [address], [place] [address] May, 2014 [facility] [address] [id number] [address] [place] [address], [place] [address] May, 2014 [facility] [address] [id number] [address] [place] [address], [place] [address] May, [facility] [address] [id number] [address] [place] [address], [place] [address] May, [facility] [address] [id number] [address] [place] [address], [place] [address] May, [facility] [address] [id number] [address] [place] [address], [place] [address] May, [facility] [address] [id number] [address] [place] [address], [place] [address] May, [facility] [address] [id number] [address] [place] [address] Apr, [facility] [address] [id number] [address] [place] [address], [place] [address] Apr, [facility] [address] [id number] [address] [place] [address], [place] [address] Apr, [facility] [address] [id number] [address] [place] [address] Apr, [facility] [address] [id number] [address] [place] [address] Apr, [facility] [address] [id number] [address] [place] [address], [place] [address] Apr, [facility] [address] [id number] [address] [place] [address], [place] [address] Apr, [facility] [address] [id number] [address] [place] [address], [place] [address] Apr, [facility] [address] [id number] [address] [place] [address], [place] [address] Apr, [facility] [address] [id number] [address] [place] [address], [place] [address] Apr, [facility] [address] [id number] [address] [place] [address], [place] [address] Apr, [facility] [address] [id number] [address] [place] [address], [place] [address] Apr, [facility] [address] [id number] [address] [place] [address], [place] [address] Apr, [facility] [address] [id number] [address] [place] [address], [place] [address] Apr, [facility] [address] [id number] [address] [place] [address], [place] [address] Apr, [facility] [address] [id number] [address] [place] [address], [place] [address] Mar, [facility] [address] [id number] [address] [place] [address], [place] [address] Mar, [facility] [address] [id number] [address] [place] [address], [place] [address] Mar, [facility] [address] [id number] [address] [place] [address], [place] [address] Mar, [facility] [address] [id number] [address] [place] [address], [place] [address] Feb, [facility] [address] [id number] [address] [place] [address], [place] [id number] 07 Feb, 2014 [facility] [address] [id number] [address] [place] [address], [place] [address] Feb, [facility] [address] [id number] [address] [place] [address], [place] [address] Feb, [facility] [address] [id number] [address] [place] [address], [place] [address] Jan, [facility] [address] [id number] [address] [place] [address], [place] [address] Jan, [facility] [address] [id number] [address] [place] [address], [place] [address] Jan, [facility] [address] [id number] [address] [place] [address], [place] [address] Jan, [facility] [address] [id number] [address] [place] [address], [place] [address] Jan, [facility] [address] [id number] [address] [place] [address], [place] [address] Jan, [facility] [address] [id number] [address] [place] [address], [place] [address] Jan, [facility] [address] [id number] [address] [place] [address], [place] [address] Jan, [facility] [address] [id number] [address] [place] [address], [place] [address] 29 Dec, 2013 [facility] [address] [id number] [address] [place] [address], [place] [address] 29 Dec, 2013 [facility] [address] [id number] [address] [place] [address], [place] [address] 04 Dec, 2013 [facility] [address] [id number] [address] [place] [address], [place] [address] 04 Dec, 2013 [facility] [address] [id number] [address] [place] [address], [place] [id number] 14 Oct, 2013 [facility] [address] [id number] [facility] [place] [address] 14 Oct, 2013 [facility] [address] [id number] [facility] [place] [address] Oct, 2013 [facility] [address] [id number] [facility] [place] [address] Oct, 2013 [facility] [address] [id number] [address] [place] [address], [place] [address] Oct, 2013 [facility] [address] [id number] [address] [place] [address], [place] [address] Oct, 2013 [facility] [address] [id number] [address] [place] [address], [place] [address] Oct, 2013 [facility] [address] [id number] [address] [place] [address], [place] [address] Oct, [facility] [address] [id number] [address] [place] [address], [place] [address] Sep, [facility] [address] [id number] [address] [place] [address], [place] [address] Sep, [facility] [address] [id number] [address] [place] [address], [place] [address] Sep, [facility] [address] [id number] [address] [place] [address], [place] [address] Sep, [facility] [address] [id number] [address] [place] [address], [place] [address] Sep, [facility] [address] [id number] [address] [place] [address], [place] [address] Sep, [facility] [address] [id number] [address] [place] [address], [place] [address] Sep, [facility] [address] [id number] [address] [place] [address], [place] [address] Sep, [facility] [address] [id number] [address] [place] [address], [place] [address] Sep, [facility] [address] [id number] [address] [place] [address], [place] [address] Sep, [facility] [address] [id number] [address] [place] [address], [place] [address] August, [facility] [facility] [address] [id number] [address] [place] [address], [place] [address] August, [facility] [address] [id number] [address] [place] [address], [place] [address] August, [facility] [address] [id number] [address] [place] [address], [place] [address] August, [facility] [address] [id number] [address] [place] [address], [place] [address] August, [facility] [address] [id number] [address] [place] [address], [place] [address] August, [facility] [address] [id number] [address] [place] [address], [place] [address] August, [facility] [address] [id number] [address] [place] [address], [place] [address] August, [facility] [address] [id number] [address] [place] [address], [place] [address] August, [facility] [address] [id number] [address] [place] [address], [place] [address] August, [facility] [address] [id number] [address] [place] [address], [place] [address] August, [facility] [address] [id number] [address] [place] [address], [place] [address] August, [facility] [address] [id number] [address] [place] [address], [place] [address] Jul, [facility] [address] [id number] [address] [place] [address], [place] [address] Jul, [facility] [address] [id number] [facility] [place] [address] Jul, [facility] [address] [id number] [facility] [place] [address] Jul, [facility] [address] [id number] [facility] [place] [address] Jul, [facility] [address] [id number] [address] [place] [address], [place] [address] Jul, [facility] [address] [id number] [address] [place] [address], [place] [address] Jun, [facility] [address] [id number] [address] [place] [address], [place] [address] Jun, [facility] [address] [id number] [address] [place] [address], [place] [address] May, [facility] [address] [id number] [address] [place] [address], [place] [address] May, [facility] [address] [id number] [address] [place] [address], [place] [address] Apr, [facility] [address] [id number] [address] [place] [address], [place] [address] Apr, [facility] [address] [id number] [address] [place] [address], [place] [address] Apr, [facility] [address] [id number] [address] [place] [address], [place] [address] Apr, [facility] [address] [id number] [address] [place] [address], [place] [address] Apr, [facility] [address] [id number] [address] [place] [address], [place] [address] Apr, [facility] [address] [id number] [address] [place] [address], [place] [address] Apr, [facility] [address] [id number] [address] [place] [address], [place] [address] Apr, [facility] [address] [id number] [address] [place] [address], [place] [address] Apr, [facility] [address] [id number] [address] [place] [address], [place] [address] Apr, [facility] [address] [id number] [address] [place] [address], [place] [address] Apr, [facility] [address] [id number] [address] [place] [address], [place] [address] Apr, [facility] [address] [id number] [address] [place] [address], [place] [address] Apr, [facility] [address] [id number] [address] [place] [address], [place] [address] Mar, [facility] [address] [id number] [address] [place] [address], [place] [address] Mar, [facility] [address] [id number] [address] [place] [address], [place] [address] Mar, [facility] [address] [id number] [address] [place] [address], [place] [address] Mar, [facility] [address] [id number] [address] [place] [address], [place] [address] Feb, [facility] [address] [id number] [address] [place] [address], [place] [address] Feb, [facility] [address] [id number] [address] [place] [address], [place] [address] Feb, [facility] [address] [id number] [address] [place] [address], [place] [address] Feb, [facility] [address] [id number] [address] [place] [address], [place] [address] Jan, [facility] [address] [id number] [address] [place] [address], [place] [address] Jan, [facility] [address] [id number] [address] [place] [address], [place] [address] Jan, [facility] [address] [id number] [address] [place] [address], [place] [address] Jan, [facility] [address] [id number] [address] [place] [address], [place] [address] Jan, [facility] [address] [id number] [address] [place] [address], [place] [address] Jan, [facility] [address] [id number] [address] [place] [address], [place] [address] Jan, [facility] [address] [id number] [address] [place] [address], [place] [address] Jan, [facility] [address] [id number] [address] [place] [address], [place] [address] Jan, [facility] [address] [id number] [address] [place] [address], [place] [address] 26 Dec, 2012 [facility] [address] [id number] [address] [place] [address], [place] [address] 16 Dec, 2012 [facility] [address] [id number] [address] [place] [address], [place] [address] 16 Dec, 2012 [facility] [address] [id number] [address] [place] [address], [place] [address] 13 Dec, 2012 [facility] [address] [id number] [address] [place] [address], [place] [address] 17 Nov, 2012 [facility] [address] [id number] [address] [place] [address], [place] [address] 17 Nov, 2012 [facility] [address] [id number] [address] [place] [address], [place] [address] 14 Nov, 2012 [facility] [address] [id number] [address] [place] [address], [place] [address] 05 Nov, 2012 [facility] [address] [id number] [address] [place] [address], [place] [address] Oct, [facility] [address] [id number] [address] [place] [address], [place] [address] Sep, [facility] [address] [id number] [address] [place] [address], [place] [address] August, [facility] [address] [id number] [address] [place] [address], [place] [address] August, [facility] [address] [id number] [address] [place] [address], [place] [address] August, [facility] [address] [id number] [address] [place] [address], [place] [address] August, [facility] [address] [id number] [address] [place] [address], [place] [address] August, [facility] [address] [id number] [address] [place] [address], [place] [address] August, [facility] [address] [id number] [address] [place] [address], [place] [address] August, [facility] [address] [id number] [address] [place] [address], [place] [address] August, [facility] [address] [id number] [address] [place] [address], [place] [address] August, [facility] [address] [id number] [address] [place] [address], [place] [address] August, [facility] [address] [id number] [address] [place] [address], [place] [address] August, [facility] [address] [id number] [address] [place] [address], [place] [address] August, [facility] [address] [id number] [address] [place] [address], [place] [address] Jul, [facility] [address] [id number] [address] [place] [address], [place] [address] Jul, [facility] [address] [id number] [address] [place] [address] 18 Jul, 2012 [facility] [address] [id number] [address] [place] [address], [place] [address] 15 Jul, 2012 [facility] [address] [id number] [address] [place] [address], [place] [address] Jul, [facility] [address] [id number] [address] [place] [address], [place] [address] Jul, [facility] [address] [id number] [address] [place] [address], [place] [address] Jul, [facility] [address] [id number] [address] [place] [address], [place] [address] Jul, [facility] [address] [id number] [address] [place] [address], [place] [address] Jul, [facility] [address] [id number] [address] [place] [address], [place] [address] Jul, [facility] [address] [id number] [address] [place] [address], [place] [address] Jul, [facility] [address] [id number] [address] [place] [address], [place] [address] Jun, [facility] [address] [id number] [address] [place] [address], [place] [address] Jun, [facility] [address] [id number] [address] [place] [address], [place] [address] Jun, [facility] [address] [id number] [address] [place] [address], [place] [address] Jun, [facility] [address] [id number] [address] [place] [address], [place] [address] May, [facility] [address] [id number] [address] [place] [address], [place] [address] 14 May, 2012 [facility] [address] [id number] [address] [place] [address], [place] [address] 05 May, 2012 [facility] [address] [id number] [address] [place] [address], [place] [address] May, [facility] [address] [id number] [address] [place] [address], [place] [address] May, [facility] [address] [id number] [address] [place] [address], [place] [address] May, [facility] [address] [id number] [address] [place] [address], [place] [address] Apr, [facility] [address] [id number] [address] [place] [address], [place] [address] Apr, [facility] [address] [id number] [address] [place] [address], [place] [address] Apr, [facility] [address] [id number] [address] [place] [address], [place] [address] Apr, [facility] [address] [id number] [address] [place] [address], [place] [address] 15 Mar, 2012 [facility] [address] [id number] [address] [place] [address], [place] [address] Mar, [facility] [address] [id number] [address] [place] [address], [place] [address] 14 Mar, 2012 [facility] [address] [id number] [address] [place] [address], [place] [address] 14 Mar, 2012 [facility] [address] [id number] [address] [place] [address], [place] [address] 14 Mar, 2012 [facility] [address] [id number] [address] [place] [address], [place] [address] 06 Mar, 2012 [facility] [address] [id number] [address] [place] [address], [place] [address] 06 Mar, 2012 [facility] [address] [id number] [address] [place] [address], [place] [address] Feb, [facility] [address] [id number] [address] [place] [address] Feb, [facility] [address] [id number] [address] [place] [address], [place] [address] Feb, [facility] [address] [id number] [address] [place] [address], [place] [address] Feb, [facility] [address] [id number] [address] [place] [address], [place] [address] Jan, [facility] [address] [id number] [address] [place] [address], [place] [address] Jan, [facility] [address] [id number] [address] [place] [address], [place] [address] Jan, [facility] [address] [id number] [address] [place] [address], [place] [address] Jan, [facility] [address] [id number] [address] [place] [address], [place] [address] Jan, [facility] [address] [id number] [address] [place] [address], [place] [address] Jan, [facility] [address] [id number] [address] [place] [address], [place] [address] Dec, [facility] [address] [id number] [address] [place] [address], [place] [address] Dec, [facility] [address] [id number] [address] [place] [address], [place] [address] Nov, [facility] [address] [id number] [address] [place] [address], [place] [address] Sep, [facility] [address] [id number] [address] [place] [address], [place] [address] August, [facility] [address] [id number] [address] [place] [address], [place] [address] August, [facility] [address] [id number] [address] [place] [address], [place] [address] August, [facility] [address] [id number] [address] [place] [address], [place] [address] 10 Aug, 2011 [facility] [address] [id number] [address] [place] [address], [place] [address] August, [facility] [address] [id number] [address] [place] [address], [place] [address] Jun, [facility] [address] [id number] [address] [place] [address], [place] [address] Jun, [facility] [address] [id number] [address] [place] [address], [place] [address] Apr, [facility] [address] [id number] [address] [place] [address], [place] [address] Apr, [facility] [address] [id number] [address] [place] [address], [place] [address] Mar, [facility] [address] [id number] [address] [place] [address], [place] [address] Feb, [facility] [address] [id number] [address] [place] [address], [place] [address] Feb, [facility] [address] [id number] [address] [place] [address], [place] [address] Feb, [facility] [address] [id number] [address] [place] [address], [place] [address] 17 Jan, 2011 [facility] [address] [id number] [address] [place] [address], [place] [address] 15 Jan, 2011 [facility] [address] [id number] [address] [place] [address], [place] [address] 15 Jan, 2011 [facility] [address] [id number] [address] [place] [address], [place] [address] 14 Jan, 2011 [facility] [address] [id number] [address] [place] [address], [place] [address] 15 May, 2010 [facility] [address] [id number] [address] [place] [address], [place] [address] Mar, [facility] [address] [facility] [id number] [address] [place] [address] Oct, [facility] [address] [facility] [id number] [address] [place] [address] Sep, [facility] [address] [facility] [id number] [address] [place] [address] Mar, [facility] [address] [facility] [id number] [address] [place] [address] Jan, [facility] [address] [facility] [id number] [address] [place] [id number] Jan, [facility] [address] [facility] [id number] [address] [place] [id number] May, IMMUNIZATIONS No Known Immunizations SOCIAL HISTORY Never Assessed REASON FOR VISIT PLAN OF CARE VITAL SIGNS Temperature 97.8 degrees Fahrenheit 2012-08-20 Heart Rate 72 bpm 2012-08-20 Respiratory Rate 16 2012-08-20 Blood pressure systolic 124 mmHg 2012-08-20 Blood pressure diastolic 80 mmHg 2012-08-20 MEDICATIONS Unknown Medications RESULTS No Results PROCEDURES No Known procedures INSTRUCTIONS MEDICATIONS ADMINISTERED No Known Medications MEDICAL (GENERAL) HISTORY Type Description Date Medical History hypertension Medical History Colposcopy with loop electro de excision of the cervix was performed 06/2012, mild squamous atypia (no definite dyplasia). Performed at [facility] Dr. Joy. Medical History Acute [...]
--- OUTSIDE RECORDS SUMMARY | 2019-11-23 05:37 | XMS REPORT ---
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 Active 610542972211 Problem Essential hypertension I10 Active 03561798 Problem Mixed hyperlipidemia E78.2 Active 50851909 Problem Other chronic pain G89.29 Active 8 6958404 Problem Neck pain M54.2 Active 29287601 Problem Slow transit constipation K59.01 Acti ve 56621270 Problem Anxiety F41.9 Active 08831390 Problem Hypokalemia E87.6 Active 25799053 Problem Chronic pain due to trauma G89.21 Act juanis 136791308 Problem Seasonal allergies J30.2 Active 4 79182631 Problem Rhinosinusitis J32.9 Active 66460 4004 ALLERGIES No Information ENCOUNTERS Encounter Location Date Diagnosis [facility] [address] [facility] [id number] [address] [place] [id number] Jan, [facility] [address] [facility] [id number] [address] [place] [address] Oct, Neuroforaminal stenosis of s pine M99.89 [facility] [address] [facility] [id number] [address] [place] [id number] Oct, [facility] [address] [facility] [id number] [address] [place] [id number] Oct, Right flank pain R10.9 ; Low er abdominal pain R10.30 ; Slow transit constipation K59.01 and 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 [facility] [address] [id number] [address] [place] [id number] Oct, Neuroforaminal stenosis of s pine M99.89 [facility] [address] [id number] [address] [place] [id number] Oct, Neuroforaminal stenosis of s pine M99.89 ; Screening breast examination Z12.39 and Other chronic pain G89.29 [facility] [address] [id number] [address] [place] [phone] Sep, [place] [address] [facility] [id number] [address] [place] [id number] Sep, Neuroforaminal stenosis of s pine M99.89 [facility] [address] [facility] [id number] [address] [place] [id number] Sep, Encounter for laboratory luisa ting for COVID-19 virus V73.89 [place] [address] [facility] [id number] [address] [place] [phone] August, Neuroforaminal stenosis of s pine M99.89 [place] [address] [facility] [id number] [address] [place] [phone] August, Acute bacterial conjunctivit is of right eye H10.31 [facility] [address] [facility] [id number] [address] [place] [id number] August, Low back pain M54.5 ; Other chronic pain G89.29 and Dysuria R30.0 [facility] [address] [id number] [address] [place] [id number] August, [place] [address] [id number] [address] [place] [id number] Jul, Neuroforaminal stenosis of s pine M99.89 [place] [address] [facility] [id number] [address] [place] [id number] Jul, Allergic conjunctivitis of b oth eyes H10.13 [place] [address] [id number] [address] [place] [phone] 27 Jun, 2019 Hypokalemia E87.6 [place] [address] [facility] [id number] [address] [place] [id number] 27 Jun, 2019 [facility] [address] [facility] [id number] [address] [place] [phone] Jun, Neuroforaminal stenosis of s pine M99.89 [place] [address] [facility] [id number] [address] [place] [id number] 19 Jun, 2019 Lateral epicondylitis, left elbow M77.12 and Medial epicondylitis, left elbow M77.02 [place] [address] [facility] [id number] [place] [id number] 16 Jun, 2019 Foraminal stenosis of lumbar region M48.061 ; Segmental dysfunction of thoracic region M99.02 ; Segmental dysfunction of lumbar region M99.03 and Segmental dysfunction of sacral region M99.04 [place] [address] [place] [id number] [address] [place] [id number] 28 May, 2019 Left elbow pain M25.522 [place] [address] [place] [id number] [address] [place] [id number] May, [place] [address] [place] [id number] [address] [place] [address] May, Left elbow pain M25.522 [place] [address] [place] [id number] [address] [place] [id number] May, Neuroforaminal stenosis of s pine M99.89 [facility] [address] [facility] [id number] [address] [place] [id number] 26 May, 2019 Rhinosinusitis J32.9 ; Left elbow pain M25.522 and Neck pain M54.2 [place] [address] [facility] [id number] [address] [place] [id number] 14 May, 2019 Lateral epicondylitis of lef t elbow M77.12 [facility] [address] [id number] [address] [place] [phone] Apr, Neuroforaminal stenosis of s jose M99.89 [facility] [address] [id number] [address] [place] [phone] Apr, Essential hypertension I10 a nd Mixed hyperlipidemia E78.2 [facility] [address] [id number] [address] [place] [id number] Mar, Neuroforaminal stenosis of s jose M99.89 [facility] [address] [id number] [address] [place] [phone] Mar, Epicondylitis, lateral, left M77.12 [facility] [address] [id number] [address] [place] [id number] Mar, [facility] [address] [id number] [address] [place] [phone] Mar, Neuroforaminal stenosis of s jose M99.89 [facility] [address] [id number] [address] [place] [id number] Feb, Neuroforaminal stenosis of ayla garcia M99.89 ; Essential hypertension I10 ; Mixed hyperlipidemia E78.2 ; Encounter for immunization Z23 and Seasonal allergies J30.2 [facility] [address] [id number] [address] [place] [id number] Jan, Neuroforaminal stenosis of s jose M99.89 [facility] [address] [id number] [address] [place] [phone] Dec, Neuroforaminal stenosis of s jose M99.89 [facility] [address] [id number] [address] [place] [phone] Dec, Neuroforaminal stenosis of s pine M99.89 [facility] [address] [id number] [address] [place] [phone] Nov, [facility] [address] [id number] [address] [place] [phone] Nov, Neuroforaminal stenosis of s pine M99.89 [facility] [address] [id number] [address] [place] [phone] Nov, Acute non-recurrent maxillar y sinusitis J01.00 [facility] [address] [id number] [address] [place] [phone] Oct, Hypokalemia E87.6 [facility] [address] [id number] [address] [place] [id number] Oct, Wasp sting, undetermined int ent, initial encounter T63.464A and Cellulitis of left lower extremity L03.116 [place] [address] [id number] [address] [place] [phone] Oct, Neuroforaminal stenosis of s pine M99.89 [place] [address] [id number] [address] [place] [phone] Sep, [place] [address] [id number] [address] [place] [phone] Sep, [place] [address] [id number] [address] [place] [phone] Sep, Routine screening for STI (s exually transmitted infection) Z11.3 [place] [address] [id number] [address] [place] [phone] Sep, Routine screening for STI (s exually transmitted infection) Z11.3 ; Well woman exam with routine gynecological exam Z01.419 and Breast cancer screening Z12.39 [facility] [address] [id number] [address] [place] [phone] Sep, Neuroforaminal stenosis of s pine M99.89 [facility] [address] [id number] [address] [place] [address] August, Neuroforaminal stenosis of s pine M99.89 [place] [address] [id number] [address] [place] [address] August, Neuroforaminal stenosis of s pine M99.89 ; Chronic pain due to trauma G89.21 and Mixed hyperlipidemia E78.2 [facility] [address] [id number] [address] [place] [id number] Jul, Viral upper respiratory illn ess J06.9 and Acute non-recurrent frontal sinusitis J01.10 [facility] [address] [id number] [address] [place] [id number] Jul, Congestion of nasal sinus R0 9.81 [facility] [address] [id number] [address] [place] [phone] Jul, Neuroforaminal stenosis of s pine M99.89 and Essential hypertension I10 [facility] [address] [id number] [address] [place] [address] May, Neuroforaminal stenosis of s pine M99.89 [facility] [address] [id number] [address] [place] [phone] May, [facility] [address] [id number] [address] [place] [phone] May, Congestion of nasal sinus R0 9.81 [facility] [address] [id number] [address] [place] [phone] May, [facility] [address] [id number] [address] [place] [phone] Apr, Neuroforaminal stenosis of s pine M99.89 [facility] [address] [id number] [address] [place] [phone] Apr, Neuroforaminal stenosis of s pine M99.89 and Chronic pain due to trauma G89.21 [facility] [address] [facility] [id number] [address] [place] [id number] Mar, UTI (urinary tract infection ) N39.0 [facility] [address] [facility] [id number] [address] [place] [phone] Mar, Vertigo R42 [facility] [address] [id number] [address] [place] [id number] Mar, Neuroforaminal stenosis of s jose M99.89 [facility] [address] [facility] [id number] [address] [place] [address] Feb, Extensor tendon disruption M 67.89 [facility] [address] [facility] [id number] [address] [place] [phone] Feb, Neuroforaminal stenosis of s jose M99.89 and High risk medication use Z79.899 [facility] [address] [id number] [address] [place] [id number] Jan, Hypokalemia E87.6 [facility] [address] [facility] [id number] [address] [place] [phone] Jan, Flank pain R10.9 and Acute r ight-sided low back pain without sciatica M54.5 [facility] [address] [facility] [id number] [address] [place] [phone] Jan, Hypokalemia E87.6 [facility] [address] [facility] [id number] [address] [place] [phone] Jan, [facility] [address] [facility] [id number] [address] [place] [phone] Jan, URI, acute J06.9 [facility] [address] [facility] [id number] [address] [place] [phone] 05 Jan, 2018 Neuroforaminal stenosis of s jose M99.89 [facility] [address] [facility] [id number] [address] [place] [id number] 13 Dec, 2017 Lateral epicondylitis, right elbow M77.11 [facility] [address] [id number] [address] [place] [phone] 11 Dec, 2017 Allergic rhinitis due to monica rosalina, unspecified seasonality J30.1 and Allergic conjunctivitis of both eyes H10.13 [facility] [address] [place] [id number] [address] [place] [address] 10 Dec, 2017 Neuroforaminal stenosis of s pine M99.89 [place] [address] [place] [id number] [address] [place] [id number] 06 Dec, 2017 Mixed hyperlipidemia E78.2 [place] [address] [place] [id number] [address] [place] [id number] 05 Dec, 2017 Abnormal glucose R73.09 ; Ab normal renal ultrasound R93.429 ; Dysuria R30.0 ; Cystitis without hematuria N30.90 ; Hypokalemia E87.6 ; Mixed hyperlipidemia E78.2 and Hematuria, unspecified type R31.9 [place] [address] [place] [id number] [address] [place] [id number] Nov, Hypokalemia E87.6 ; Mixed hy perlipidemia E78.2 and Hematuria, unspecified type R31.9 [place] [id number] [place] [address] Nov, [place] [address] [place] [id number] [address] [place] [address] Nov, Hypokalemia E87.6 [place] [address] [place] [id number] [address] [place] [phone] Nov, [place] [address] [place] [id number] [address] [place] [phone] Nov, Abnormal renal ultrasound R9 3.429 [place] [address] [place] [id number] [address] [place] [phone] Nov, Abnormal renal ultrasound R9 3.429 [place] [address] [place] [id number] [address] [place] [address] Nov, Hematuria, unspecified type R31.9 and 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 [place] [address] [place] [id number] [address] [place] [phone] Nov, Dysuria R30.0 [place] [address] [id number] [address] [place] [phone] Oct, Lateral epicondylitis, right elbow M77.11 [place] [address] [id number] [address] [place] [address] Oct, Neuroforaminal stenosis of s pine M99.89 ; Visit for TB skin test Z11.1 and Essential hypertension I10 [place] [address] [id number] [address] [place] [address] Oct, [place] [address] [id number] [address] [place] [phone] Oct, Neuroforaminal stenosis of s pine M99.89 [place] [address] [id number] [address] [place] [address] Oct, Visit for TB skin test Z11.1 [place] [address] [id number] [address] [place] [phone] 05 Oct, 2017 Cystitis without hematuria N 30.90 [place] [address] [id number] [address] [place] [phone] Sep, Screening breast examination Z12.39 [place] [address] [id number] [address] [place] [address] Sep, Dysuria R30.0 and Cystitis w ithout hematuria N30.90 [place] [address] [id number] [address] [place] [id number] 14 Sep, 2017 Essential hypertension I10 a nd 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 [place] [address] [id number] [address] [place] [id number] Sep, Abnormal glucose R73.09 [place] [address] [id number] [address] [place] [address] August, Lateral epicondylitis, right elbow M77.11 [place] [address] [id number] [address] [place] [address] August, Screen for STD (sexually tra nsmitted disease) Z11.3 [place] [address] [id number] [address] [place] [address] August, Neuroforaminal stenosis of ayla garcia M99.89 ; Mixed hyperlipidemia E78.2 ; Elevated fasting glucose R73.01 ; Screening mammogram, encounter for Z12.31 and Encounter for well woman exam without gynecological exam Z00.00 [place] [address] [id number] [address] [place] [phone] August, Neuroforaminal stenosis of s jose M99.89 [place] [address] [id number] [address] [place] [phone] August, Essential hypertension I10 ; Hypokalemia E87.6 and Mixed hyperlipidemia E78.2 [place] [address] [id number] [address] [place] [phone] Jul, [place] [address] [id number] [address] [place] [phone] Jul, Neuroforaminal stenosis of ayla garcia M99.89 [place] [address] [id number] [address] [place] [address] Jul, Lateral epicondylitis, right elbow M77.11 [place] [address] [id number] [address] [place] [address] Jul, [place] [address] [id number] [address] [place] [address] Jun, High ankle sprain of right l ower extremity, initial encounter S93.431A [place] [address] [id number] [address] [place] [address] Jun, Essential hypertension I10 [place] [address] [id number] [address] [place] [address] Jun, [place] [address] [facility] [id number] [address] [place] [address] Jun, [place] [address] [address] Jun, Neuroforaminal stenosis of s pine M99.89 [place] [address] [address] Jun, Pain of right upper extremit y M79.601 and Essential hypertension I10 [place] [address] [address] Jun, [place] [address] [address] Jun, Dysuria R30.0 ; Acute cystit is with hematuria N30.01 and Screen for STD (sexually transmitted disease) Z11.3 [place] [address] [address] May, Chronic pain due to trauma G 89.21 [place] [address] [address] May, Essential hypertension I10 [place] [address] [address] May, Neuroforaminal stenosis of s pine M99.89 [place] [address] [address] Apr, Allergic reaction, initial e ncounter T78.40XA [place] [address] [address] Apr, Low back pain, unspecified b ack pain laterality, unspecified chronicity, with sciatica presence unspecified M54.5 ; Acute cystitis with hematuria N30.01 ; 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 ; Bilateral acute serous otitis media, recurrence not specified H65.03 ; Mixed hyperlipidemia E78.2 ; Essential hypertension I10 ; Immunization counseling Z71.89 and Encounter for immunization Z23 [place] [address] [address] Apr, Neck pain M54.2 [facility] [address] [id number] [address] [place] [id number] Mar, Neuroforaminal stenosis of s pine M99.89 [facility] [address] [id number] [address] [place] [address] Mar, Pharyngitis due to other org anism J02.8 [facility] [address] [id number] [address] [place] [address] Feb, Neuroforaminal stenosis of s pine M99.89 [facility] [address] [id number] [address] [place] [id number] Feb, UTI (urinary tract infection ) N39.0 [facility] [address] [id number] [address] [place] [address] Feb, Recent urinary tract infecti on Z87.440 ; Neuroforaminal 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 ; Neck pain M54.2 ; Chronic pain due to trauma G89.21 and Recurrent UTI N39.0 [facility] [address] [id number] [address] [place] [phone] Feb, [facility] [address] [id number] [address] [place] [phone] Jan, Neuroforaminal stenosis of s pine M99.89 [facility] [address] [id number] [address] [place] [phone] Dec, Neuroforaminal stenosis of s pine M99.89 [facility] [address] [id number] [address] [place] [phone] 18 Dec, 2016 Acute seasonal allergic rhin itis due to pollen J30.1 [facility] [address] [id number] [address] [place] [id number] 08 Dec, 2016 [facility] [address] [id number] [address] [place] [id number] Dec, Acute seasonal allergic rhin itis, unspecified trigger J30.2 ; Allergic conjunctivitis of both eyes H10.13 and Dysfunction of both eustachian tubes H69.83 [place] [address] [facility] [id number] [address] [place] [id number] 07 Dec, 2016 [place] [address] [facility] [id number] [address] [place] [address] Dec, Nevus D22.9 [place] [address] [facility] [id number] [address] [place] [address] Nov, Chronic pain due to trauma G 89.21 and 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 [place] [address] [facility] [id number] [place] [phone] Nov, Neuroforaminal stenosis of s pine M99.89 ; Essential hypertension I10 ; Mixed hyperlipidemia E78.2 ; Hypokalemia E87.6 ; Neck pain M54.2 and Nevus D22.9 [place] [address] [id number] [address] [place] [phone] Oct, Neuroforaminal stenosis of s pine M99.89 [place] [address] [facility] [id number] [address] [place] [address] Sep, Neuroforaminal stenosis of s pine M99.89 [place] [address] [facility] [id number] [address] [place] [phone] Sep, [place] [address] [facility] [id number] [address] [place] [address] August, [place] [address] [facility] [id number] [address] [place] [phone] August, Neck pain M54.2 and Neurofor aminal stenosis of spine M99.89 [place] [address] [facility] [id number] [address] [place] [address] August, Routine gynecological examin ation Z01.419 and Screening breast examination Z12.39 [place] [address] [id number] [address] [place] [phone] Jul, [facility] [address] [id number] [address] [place] [id number] Jul, [facility] [address] [id number] [address] [place] [id number] Jul, Neuroforaminal stenosis of s pine M99.89 [facility] [address] [id number] [address] [place] [id number] Jul, [facility] [address] [id number] [address] [place] [phone] Jul, Neuroforaminal stenosis of l umbar 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 [facility] [address] [id number] [address] [place] [phone] Jul, [facility] [address] [id number] [address] [place] [phone] Jul, [facility] [address] [id number] [address] [place] [phone] Jun, Neuroforaminal stenosis of s pine M99.89 [facility] [address] [id number] [address] [place] [phone] Jun, Uterine leiomyoma, unspecifi ed location D25.9 and Allergic reaction caused by a drug, initial encounter T78.40XA [facility] [address] [id number] [address] [place] [phone] Jun, [facility] [address] [id number] [address] [place] [phone] May, UTI symptoms R39.9 and Pain of right sacroiliac joint M53.3 [facility] [address] [id number] [address] [place] [phone] May, Neuroforaminal stenosis of s pine M99.89 [facility] [address] [id number] [address] [place] [id number] May, [facility] [address] [facility] [id number] [address] [place] [phone] May, Acute mucoid otitis media of left ear H65.112 and Acute non- recurrent maxillary sinusitis J01.00 [place] [address] [facility] [id number] [address] [place] [id number] May, Acute bacterial conjunctivit is of both eyes H10.33 ; Left arm pain M79.602 and Hypokalemia E87.6 [place] [address] [id number] [address] [place] [phone] Apr, [place] [address] [address] [facility] [id number] [address] [place] [phone] Apr, Neuroforaminal stenosis of s pine M99.89 ; Neck pain M54.2 ; Chronic pain due to trauma G89.21 ; Mixed hyperlipidemia E78.2 ; Essential hypertension I10 and Hypokalemia E87.6 [place] [address] [id number] [address] [place] [phone] Mar, Oral candidiasis B37.0 ; Nathaniel roforaminal stenosis of spine M99.89 ; Neck pain M54.2 and Chronic pain due to trauma G89.21 [place] [address] [address] [facility] [id number] [address] [place] [phone] Feb, [place] [address] [address] [facility] [id number] [address] [place] [phone] Feb, [facility] [address] [id number] [address] [place] [id number] Feb, UTI (urinary tract infection ) N39.0 [place] [address] [address] [facility] [id number] [address] [place] [id number] Feb, Dysuria R30.0 [place] [address] [address] [facility] [id number] [address] [place] [id number] Feb, Dysuria R30.0 [place] [address] [id number] [address] [place] [address] Feb, Neuroforaminal stenosis of s pine M99.89 ; Neck pain M54.2 ; Essential hypertension I10 ; Chronic pain due to trauma G89.21 ; Dysuria R30.0 ; Abnormal MRI, shoulder R93.8 and Acute cystitis without hematuria N30.00 [facility] [address] [id number] [address] [place] [phone] Jan, [facility] [address] [id number] [address] [place] [address] Jan, [facility] [address] [id number] [address] [place] [id number] Jan, [facility] [address] [id number] [address] [place] [address] Jan, Abnormal MRI R93.8 [facility] [address] [id number] [address] [place] [id number] 29 Dec, 2015 [facility] [address] [id number] [address] [place] [id number] 15 Dec, 2015 Acute pain of left shoulder M25.512 [facility] [address] [id number] [address] [place] [id number] 09 Dec, 2015 [facility] [address] [id number] [address] [place] [id number] 08 Dec, 2015 [facility] [address] [id number] [address] [place] [id number] 07 Dec, 2015 Acute pain of left shoulder M25.512 [facility] [address] [id number] [address] [place] [address] Nov, [facility] [address] [facility] [id number] [address] [place] [id number] 16 Nov, 2015 Neuroforaminal stenosis of s pine M99.89 ; Neck pain M54.2 ; Abnormal mammogram R92.8 ; Essential hypertension I10 and Chronic pain due to trauma G89.21 [facility] [address] [id number] [address] [place] [id number] Nov, [facility] [address] [id number] [address] [place] [phone] Oct, Acute stress disorder F43.0 [facility] [address] [id number] [address] [place] [id number] Oct, [facility] [address] [id number] [address] [place] [phone] Oct, [facility] [address] [id number] [address] [place] [id number] Oct, [facility] [address] [id number] [address] [place] [address] Sep, [facility] [address] [id number] [address] [place] [id number] August, [facility] [address] [id number] [address] [place] [address] Jul, Neuroforaminal stenosis of s pine M99.89 ; Neck pain M54.2 ; Abnormal mammogram R92.8 and Essential hypertension I10 [facility] [address] [id number] [address] [place] [id number] Jul, [facility] [address] [id number] [address] [place] [id number] Jul, [facility] [address] [id number] [address] [place] [id number] Jul, Abnormal mammogram R92.8 [facility] [address] [id number] [address] [place] [id number] Jul, [facility] [address] [id number] [address] [place] [address] Jul, UTI (urinary tract infection ) N39.0 [facility] [address] [id number] [address] [place] [id number] Jul, Dysuria R30.0 [facility] [address] [facility] [id number] [address] [place] [phone] Jun, [facility] [address] [facility] [id number] [address] [place] [id number] Jun, [facility] [address] [facility] [id number] [address] [place] [id number] Jun, Hypokalemia E87.6 and Hematu martina R31.9 [facility] [address] [facility] [id number] [address] [place] [address] Jun, Hypokalemia E87.6 [place] [address] [facility] [id number] [address] [place] [id number] Jun, [place] [address] [place] [id number] [address] [place] [address] Jun, Hypokalemia E87.6 [place] [address] [facility] [id number] [address] [place] [address] Jun, Hypokalemia E87.6 [place] [address] [facility] [id number] [address] [place] [phone] Jun, Neuroforaminal stenosis of s pine M99.89 ; Hypokalemia E87.6 ; Neck pain M54.2 ; Essential hypertension I10 ; Mixed hyperlipidemia E78.2 and Screening breast examination Z12.39 [place] [address] [facility] [id number] [address] [place] [address] Jun, Dysuria R30.0 ; UTI (urinary tract infection) N39.0 and Hematuria R31.9 [place] [address] [facility] [id number] [address] [place] [address] May, [place] [address] [facility] [id number] [address] [place] [address] May, High risk sexual behavior Z7 2.51 ; Hypokalemia E87.6 ; Neuroforaminal stenosis of spine M99.89 ; Neck pain M54.2 ; Essential hypertension I10 ; Mixed hyperlipidemia E78.2 ; STD exposure Z20.2 and Concern about STD in female without diagnosis Z71.1 [facility] [address] [id number] 16 May, 2015 Neuroforaminal stenosis of s pine M99.89 ; Neck pain M54.2 ; Hypokalemia E87.6 ; Essential hypertension I10 and Mixed hyperlipidemia E78.2 [facility] [address] [address] 11 May, 2015 [facility] [address] [place] [id number] [place] [address] 08 May, 2015 High risk sexual behavior Z7 2.51 ; STD exposure Z20.2 and Concern about STD in female without diagnosis Z71.1 [place] [address] [id number] May, [place] [address] [address] Apr, Neuroforaminal stenosis of s pine M99.89 ; Mixed hyperlipidemia E78.2 ; Essential hypertension I10 and Hypokalemia E87.6 [place] [address] [address] Mar, [place] [address] [address] Mar, Hypokalemia E87.6 [place] [address] [place] [id number] [address] [place] [address] Mar, Neuroforaminal stenosis of s pine M99.89 ; Mixed hyperlipidemia E78.2 ; Neck pain M54.2 ; Essential hypertension I10 ; Abnormal fasting glucose R73.09 ; Hypokalemia E87.6 and Constipation K59.00 [place] [address] [address] Feb, 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 ; Mixed hyperlipidemia E78.2 ; Neck pain M54.2 ; Essential hypertension I10 ; Abnormal fasting glucose R73.09 ; Hypokalemia E87.6 and Constipation K59.00 [place] [address] [id number] [address] [place] [address] Feb, Elevated fasting blood sugar R73.01 [place] [address] [facility] [id number] [address] [place] [id number] Feb, Elevated fasting blood sugar R73.01 [place] [address] [facility] [id number] [address] [place] [address] Feb, Hair loss L65.9 [place] [address] [place] [id number] [address] [place] [address] Feb, Sinusitis J32.9 ; Essential hypertension I10 and Hair loss L65.9 [place] [address] [place] [id number] [address] [place] [address] Jan, [place] [address] [place] [id number] [address] [place] [address] Jan, Essential hypertension I10 ; Neuroforaminal stenosis of spine M99.89 ; Neck pain M54.2 ; Mixed hyperlipidemia E78.2 and Anxiety F41.9 [place] [address] [place] [id number] [address] [place] [address] Jan, [place] [address] [place] [id number] [address] [place] [address] Jan, Mixed hyperlipidemia E78.2 ; Essential (primary) hypertension I10 ; Strain of muscle, fascia and tendon at neck level, subsequent encounter S16.1XXD and Tension-type headache, unspecified, not intractable G44.209 [place] [address] [facility] [id number] [address] [place] [address] Dec, Lumbar back pain 724.2 and N euroforaminal stenosis of spine 724.00 [place] [address] [place] [id number] [address] [place] [phone] Nov, [facility] [address] [id number] [address] [place] [address] Nov, Lumbar back pain 724.2 and N euroforaminal stenosis of spine 724.00 [facility] [address] [id number] [address] [place] [address] Nov, Edema 782.3 ; Lumbar back pa in 724.2 ; Essential hypertension, benign 401.1 ; Hyperlipemia 272.4 ; Neuroforaminal stenosis of spine 724.00 and Post-concussion headache 339.20 [facility] [address] [id number] [address] [place] [id number] Nov, [facility] [address] [id number] [address] [place] [address] Nov, [facility] [address] [id number] [address] [place] [id number] Oct, Essential hypertension, sheridan gn 401.1 [facility] [address] [id number] [address] [place] [id number] Oct, Edema 782.3 ; Lumbar back pa in 724.2 ; Essential hypertension, benign 401.1 ; Hyperlipemia 272.4 ; Neuroforaminal stenosis of spine 724.00 and Post-concussion headache 339.20 [facility] [address] [id number] [address] [place] [phone] Oct, [facility] [address] [id number] [address] [place] [address] Oct, Edema 782.3 [facility] [address] [id number] [address] [place] [id number] Oct, Lumbar back pain 724.2 [facility] [address] [id number] [address] [place] [id number] Oct, Cervicalgia 723.1 ; Lumbar b ack pain 724.2 and High risk medication use V58.69 [facility] [address] [id number] [address] [place] [id number] Sep, [facility] [address] [id number] [address] [place] [id number] Sep, Lumbar strain 847.2 [facility] [address] [facility] [id number] [address] [place] [address] August, Edema 782.3 and Eustachian t ube dysfunction 381.81 [facility] [address] [id number] [address] [place] [id number] August, [facility] [address] [id number] [address] [place] [address] August, Eustachian tube dysfunction 381.81 [facility] [address] [facility] [id number] [address] [place] [id number] Jul, Otalgia 388.70 and Otitis me jonathon 382.9 [facility] [address] [id number] [address] [place] [address] Jul, [facility] [address] [id number] [address] [place] [id number] Jul, [facility] [address] [id number] [address] [place] [phone] Jul, [facility] [address] [id number] [address] [place] [phone] 14 Jul, 2014 [facility] [address] [id number] [address] [place] [id number] 13 Jul, 2014 [facility] [address] [id number] [address] [place] [phone] Jun, [facility] [address] [id number] [address] [place] [id number] Jun, [facility] [address] [id number] [address] [place] [phone] Jun, [facility] [address] [id number] [address] [place] [address], [place] [address] May, 2014 [facility] [address] [id number] [address] [place] [address], [place] [address] May, 2014 [facility] [address] [id number] [address] [place] [address], [place] [address] May, 2014 [facility] [address] [id number] [address] [place] [address], [place] [address] May, 2014 [facility] [address] [id number] [address] [place] [address], [place] [address] May, 2014 [facility] [address] [id number] [address] [place] [address], [place] [address] May, 2014 [facility] [address] [id number] [address] [place] [address], [place] [address] May, 2014 [facility] [address] [id number] [address] [place] [address], [place] [address] May, 2014 [facility] [address] [id number] [address] [place] [address], [place] [address] May, [facility] [address] [id number] [address] [place] [address], [place] [address] May, [facility] [address] [id number] [address] [place] [address], [place] [address] Apr, [facility] [address] [id number] [address] [place] [address], [place] [address] Apr, [facility] [address] [id number] [address] [place] [address], [place] [address] Apr, [facility] [address] [id number] [address] [place] [address], [place] [address] Apr, [facility] [address] [id number] [address] [place] [address], [place] [address] Apr, [facility] [address] [id number] [address] [place] [address], [place] [address] Apr, [facility] [address] [id number] [address] [place] [address], [place] [address] Apr, [facility] [address] [id number] [address] [place] [address], [place] [address] Apr, [facility] [address] [id number] [address] [place] [address], [place] [address] Apr, [facility] [address] [id number] [address] [place] [address], [place] [address] Apr, [facility] [address] [id number] [address] [place] [address], [place] [address] Apr, [facility] [address] [id number] [address] [place] [address], [place] [address] Apr, [facility] [address] [id number] [address] [place] [address], [place] [address] Apr, [facility] [address] [id number] [address] [place] [address], [place] [address] Apr, [facility] [address] [id number] [address] [place] [address], [place] [address] Apr, [facility] [address] [id number] [address] [place] [address], [place] [address] Mar, [facility] [address] [id number] [address] [place] [address], [place] [address] Mar, [facility] [address] [id number] [address] [place] [address], [place] [address] Mar, [facility] [address] [id number] [address] [place] [address], [place] [address] Mar, [facility] [address] [id number] [address] [place] [address], [place] [address] Feb, [facility] [address] [id number] [address] [place] [address], [place] [address] Feb, [facility] [address] [id number] [address] [place] [address], [place] [address] Feb, [facility] [address] [id number] [address] [place] [address], [place] [address] Feb, [facility] [address] [id number] [address] [place] [address], [place] [address] Jan, [facility] [address] [id number] [address] [place] [address], [place] [address] Jan, [facility] [address] [id number] [address] [place] [address], [place] [address] Jan, [facility] [address] [id number] [address] [place] [address], [place] [address] Jan, [facility] [address] [id number] [address] [place] [address], [place] [address] Jan, [facility] [address] [id number] [address] [place] [address], [place] [address] Jan, [facility] [address] [id number] [address] [place] [address], [place] [address] Jan, [facility] [address] [id number] [address] [place] [address], [place] [address] Jan, [facility] [address] [id number] [address] [place] [address], [place] [address] Dec, [facility] [address] [id number] [address] [place] [address], [place] [address] 29 Dec, 2013 [facility] [address] [id number] [address] [place] [address], [place] [address] Dec, [facility] [address] [id number] [address] [place] [address], [place] [address] Dec, [facility] [address] [id number] [address] [place] [address], [place] [address] Oct, [facility] [address] [id number] [address] [place] [address], [place] [address] Oct, [facility] [address] [id number] [facility] [place] [address] Oct, 2013 [facility] [address] [id number] [address] [place] [address], [place] [address] Oct, 2013 [facility] [address] [id number] [address] [place] [address], [place] [address] Oct, 2013 [facility] [address] [id number] [address] [place] [address], [place] [address] Oct, 2013 [facility] [address] [id number] [address] [place] [address], [place] [address] Oct, 2013 [facility] [address] [id number] [address] [place] [address], [place] [address] Oct, 2013 [facility] [address] [id number] [address] [place] [address], [place] [address] Sep, [facility] [address] [id number] [address] [place] [address], [place] [address] Sep, [facility] [address] [id number] [address] [place] [address], [place] [address] Sep, [facility] [address] [id number] [address] [place] [address], [place] [address] Sep, [facility] [address] [id number] [address] [place] [address], [place] [address] Sep, [facility] [address] [id number] [address] [place] [address], [place] [address] Sep, [facility] [address] [id number] [address] [place] [address], [place] [address] Sep, [facility] [address] [id number] [address] [place] [address], [place] [address] Sep, [facility] [address] [id number] [address] [place] [address], [place] [address] Sep, [facility] [address] [id number] [address] [place] [address], [place] [address] Sep, [facility] [address] [id number] [address] [place] [address], [place] [address] August, [facility] [address] [id number] [address] [place] [address], [place] [address] August, [facility] [address] [id number] [address] [place] [address], [place] [address] August, [facility] [address] [id number] [address] [place] [address], [place] [address] August, [facility] [address] [id number] [address] [place] [address], [place] [address] August, [facility] [address] [id number] [address] [place] [address], [place] [address] August, [facility] [address] [id number] [address] [place] [address], [place] [address] August, [facility] [address] [id number] [address] [place] [address], [place] [address] August, [facility] [address] [id number] [address] [place] [address], [place] [address] August, [facility] [address] [id number] [address] [place] [address], [place] [address] August, [facility] [address] [id number] [address] [place] [address], [place] [address] August, [facility] [address] [id number] [address] [place] [address], [place] [address] August, [facility] [address] [id number] [address] [place] [address], [place] [address] Jul, [facility] [address] [id number] [address] [place] [address], [place] [address] Jul, [facility] [address] [id number] [address] [place] [address], [place] [address] Jul, [facility] [address] [id number] [facility] [place] [address] Jul, [facility] [address] [id number] [address] [place] [address], [place] [address] Jul, [facility] [address] [id number] [address] [place] [address], [place] [address] Jul, [facility] [address] [id number] [address] [place] [address], [place] [address] Jun, [facility] [address] [id number] [address] [place] [address], [place] [address] Jun, [facility] [address] [id number] [address] [place] [address], [place] [address] May, [facility] [address] [id number] [address] [place] [address], [place] [address] May, [facility] [address] [id number] [address] [place] [address], [place] [address] Apr, [facility] [address] [id number] [address] [place] [address], [place] [address] Apr, [facility] [address] [id number] [address] [place] [address], [place] [address] Apr, [facility] [address] [id number] [address] [place] [address], [place] [address] Apr, [facility] [address] [id number] [address] [place] [address], [place] [address] Apr, [facility] [address] [id number] [address] [place] [address], [place] [address] Apr, [facility] [address] [id number] [address] [place] [address], [place] [address] Apr, [facility] [address] [id number] [address] [place] [address], [place] [address] Apr, [facility] [address] [id number] [address] [place] [address], [place] [address] Apr, [facility] [address] [id number] [address] [place] [address], [place] [address] Apr, [facility] [address] [id number] [address] [place] [address], [place] [address] Apr, [facility] [address] [id number] [address] [place] [address], [place] [address] Apr, [facility] [address] [id number] [address] [place] [address], [place] [address] Apr, [facility] [address] [id number] [address] [place] [address], [place] [address] Mar, [facility] [address] [id number] [address] [place] [address], [place] [address] Mar, [facility] [address] [id number] [address] [place] [address], [place] [address] Mar, [facility] [address] [id number] [address] [place] [address], [place] [address] Mar, [facility] [address] [id number] [address] [place] [address], [place] [address] Feb, [facility] [address] [id number] [address] [place] [address], [place] [address] Feb, [facility] [address] [id number] [address] [place] [address], [place] [address] Feb, [facility] [address] [id number] [address] [place] [address], [place] [address] Feb, [facility] [address] [id number] [address] [place] [address], [place] [address] 14 Jan, 2013 [facility] [address] [id number] [address] [place] [address], [place] [address] 14 Jan, 2013 [facility] [address] [id number] [address] [place] [address], [place] [address] 11 Jan, 2013 [facility] [address] [id number] [address] [place] [address], [place] [address] Jan, [facility] [address] [id number] [address] [place] [address], [place] [address] Jan, [facility] [address] [id number] [address] [place] [address], [place] [address] Jan, [facility] [address] [id number] [address] [place] [address], [place] [address] Jan, [facility] [address] [id number] [address] [place] [address], [place] [address] Jan, [facility] [address] [id number] [address] [place] [address], [place] [address] Jan, [facility] [address] [id number] [address] [place] [address], [place] [address] 26 Dec, 2012 [facility] [address] [id number] [address] [place] [address], [place] [address] 16 Dec, 2012 [facility] [address] [id number] [address] [place] [address], [place] [address] 16 Dec, 2012 [facility] [address] [id number] [address] [place] [address], [place] [address] 13 Dec, 2012 [facility] [address] [id number] [address] [place] [address], [place] [address] Nov, [facility] [address] [id number] [address] [place] [address], [place] [address] 17 Nov, 2012 [facility] [address] [id number] [address] [place] [address], [place] [address] 14 Nov, 2012 [facility] [address] [id number] [address] [place] [address], [place] [address] 05 Nov, 2012 [facility] [address] [id number] [address] [place] [address], [place] [address] 18 Oct, 2012 [facility] [address] [id number] [address] [place] [address], [place] [address] Sep, [facility] [address] [id number] [address] [place] [address], [place] [address] August, [facility] [address] [id number] [address] [place] [address], [place] [address] August, [facility] [address] [id number] [address] [place] [address], [place] [address] August, [facility] [address] [id number] [address] [place] [address], [place] [address] August, [facility] [address] [id number] [address] [place] [address], [place] [address] August, [facility] [address] [id number] [address] [place] [address], [place] [address] August, [facility] [address] [id number] [address] [place] [address], [place] [address] August, [facility] [address] [id number] [address] [place] [address], [place] [address] August, [facility] [address] [id number] [address] [place] [address], [place] [address] August, [facility] [address] [id number] [address] [place] [address], [place] [address] August, [facility] [address] [id number] [address] [place] [address], [place] [address] August, [facility] [address] [id number] [address] [place] [address], [place] [address] August, [facility] [address] [id number] [address] [place] [address], [place] [address] Jul, [facility] [address] [id number] [address] [place] [address], [place] [address] Jul, [facility] [address] [id number] [address] [place] [address], [place] [address] Jul, [facility] [address] [id number] [address] [place] [address], [place] [address] 15 Jul, 2012 [facility] [address] [id number] [address] [place] [address], [place] [address] 09 Jul, 2012 [facility] [address] [id number] [address] [place] [address], [place] [address] 08 Jul, 2012 [facility] [address] [id number] [address] [place] [address], [place] [address] 04 Jul, 2012 [facility] [address] [id number] [address] [place] [address], [place] [address] Jul, [facility] [address] [id number] [address] [place] [address], [place] [address] Jul, [facility] [address] [id number] [address] [place] [address], [place] [address] Jul, [facility] [address] [id number] [address] [place] [address], [place] [address] Jul, [facility] [address] [id number] [address] [place] [address], [place] [address] Jun, [facility] [address] [id number] [address] [place] [address], [place] [address] Jun, [facility] [address] [id number] [address] [place] [address], [place] [address] Jun, [facility] [address] [id number] [address] [place] [address], [place] [address] Jun, [facility] [address] [id number] [address] [place] [address], [place] [address] 28 May, 2012 [facility] [address] [id number] [address] [place] [address], [place] [address] 14 May, 2012 [facility] [address] [id number] [address] [place] [address], [place] [address] 05 May, 2012 [facility] [address] [id number] [address] [place] [address], [place] [address] May, [facility] [address] [id number] [address] [place] [address], [place] [address] May, [facility] [address] [id number] [address] [place] [address], [place] [address] May, [facility] [address] [id number] [address] [place] [address], [place] [address] Apr, [facility] [address] [id number] [address] [place] [address], [place] [address] Apr, [facility] [address] [id number] [address] [place] [address], [place] [address] Apr, [facility] [address] [id number] [address] [place] [address], [place] [address] Apr, [facility] [address] [id number] [address] [place] [address], [place] [address] 15 Mar, 2012 [facility] [address] [id number] [address] [place] [address], [place] [address] 14 Mar, 2012 [facility] [address] [id number] [address] [place] [address], [place] [address] Mar, [facility] [address] [id number] [address] [place] [address], [place] [address] 14 Mar, 2012 [facility] [address] [id number] [address] [place] [address], [place] [address] Mar, [facility] [address] [id number] [address] [place] [address], [place] [address] 06 Mar, 2012 [facility] [address] [id number] [address] [place] [address], [place] [address] Mar, [facility] [address] [id number] [address] [place] [address], [place] [address] Feb, [facility] [address] [id number] [address] [place] [address], [place] [address] Feb, [facility] [address] [id number] [address] [place] [address], [place] [address] Feb, [facility] [address] [id number] [address] [place] [address], [place] [address] Feb, [facility] [address] [id number] [address] [place] [address], [place] [address] Jan, [facility] [address] [id number] [address] [place] [address], [place] [address] Jan, [facility] [address] [id number] [address] [place] [address], [place] [address] Jan, [facility] [address] [id number] [address] [place] [address], [place] [address] Jan, [facility] [address] [id number] [address] [place] [address], [place] [address] Jan, [facility] [address] [id number] [address] [place] [address], [place] [address] Jan, [facility] [address] [id number] [address] [place] [address], [place] [address] Dec, [facility] [address] [id number] [address] [place] [address], [place] [address] Dec, [facility] [address] [id number] [address] [place] [address], [place] [address] Nov, [facility] [address] [id number] [address] [place] [address], [place] [address] Sep, [facility] [address] [id number] [address] [place] [address], [place] [address] August, [facility] [address] [id number] [address] [place] [address], [place] [address] August, [facility] [address] [id number] [address] [place] [address], [place] [address] August, [facility] [address] [id number] [address] [place] [address], [place] [address] August, [facility] [address] [id number] [address] [place] [address], [place] [address] August, [facility] [address] [id number] [address] [place] [address], [place] [address] Jun, [facility] [address] [id number] [address] [place] [address], [place] [address] Jun, [facility] [address] [id number] [address] [place] [address], [place] [address] Apr, [facility] [address] [id number] [address] [place] [address], [place] [address] Apr, [facility] [address] [id number] [address] [place] [address], [place] [address] Mar, [facility] [address] [id number] [address] [place] [address], [place] [address] Feb, [facility] [address] [id number] [address] [place] [address], [place] [address] Feb, [facility] [address] [id number] [address] [place] [address], [place] [address] Feb, [facility] [address] [id number] [address] [place] [address], [place] [address] 17 Jan, 2011 [facility] [address] [id number] [address] [place] [address], [place] [address] 15 Jan, 2011 [facility] [address] [id number] [address] [place] [address] 15 Jan, 2011 [facility] [address] [id number] [address] [place] [address], [place] [address] 14 Jan, 2011 [facility] [address] [id number] [address] [place] [address], [place] [address] 15 May, 2010 [facility] [address] [id number] [address] [place] [address], [place] [address] 04 Mar, 2010 [facility] [address] [id number] [address] [place] [address] Oct, [facility] [address] [facility] [id number] [address] [place] [address] Sep, [facility] [address] [facility] [id number] [address] [place] [address] Mar, [facility] [address] [facility] [id number] [address] [place] [address] Jan, [facility] [address] [facility] [id number] [address] [place] [address] Jan, [facility] [address] [facility] [id number] [address] [place] [id number] May, IMMUNIZATIONS No Known Immunizations SOCIAL HISTORY [...]
--- OUTSIDE RECORDS SUMMARY | 2019-11-23 05:37 | XMS REPORT ---
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 Active 435271449759 Problem Essential hypertension I10 Active 58608182 Problem Mixed hyperlipidemia E78.2 Active 29909646 Problem Other chronic pain G89.29 Active 8 6351819 Problem Neck pain M54.2 Active 53440674 Problem Slow transit constipation K59.01 Acti ve 32634907 Problem Anxiety F41.9 Active 60416155 Problem Hypokalemia E87.6 Active 93057737 Problem Chronic pain due to trauma G89.21 Act juanis 071255043 Problem Seasonal allergies J30.2 Active 4 43508286 Problem Rhinosinusitis J32.9 Active 85850 4004 ALLERGIES No Information ENCOUNTERS Encounter Location Date Diagnosis [facility] [address] [facility] [id number] [address] [place] [phone] Jan, [facility] [address] [facility] [id number] [address] [place] [phone] Oct, Neuroforaminal stenosis of s pine M99.89 [facility] [address] [facility] [id number] [address] [place] [phone] Oct, [facility] [address] [facility] [id number] [address] [place] [phone] Oct, Right flank pain R10.9 ; Low er abdominal pain R10.30 ; Slow transit constipation K59.01 and 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 [facility] [address] [id number] [address] [place] [address] Oct, Neuroforaminal stenosis of s pine M99.89 [facility] [address] [id number] [address] [place] [id number] Oct, Neuroforaminal stenosis of s pine M99.89 ; Screening breast examination Z12.39 and Other chronic pain G89.29 [facility] [address] [id number] [address] [place] [phone] Sep, [place] [address] [facility] [id number] [address] [place] [id number] Sep, Neuroforaminal stenosis of s pine M99.89 [facility] [address] [facility] [id number] [address] [place] [phone] Sep, Encounter for laboratory luisa ting for COVID-19 virus V73.89 [place] [address] [facility] [id number] [address] [place] [address] August, Neuroforaminal stenosis of s pine M99.89 [place] [address] [facility] [id number] [address] [place] [id number] August, Acute bacterial conjunctivit is of right eye H10.31 [facility] [address] [facility] [id number] [address] [place] [phone] August, Low back pain M54.5 ; Other chronic pain G89.29 and Dysuria R30.0 [facility] [address] [id number] [address] [place] [id number] August, [place] [address] [id number] [address] [place] [address] Jul, Neuroforaminal stenosis of s pine M99.89 [place] [address] [facility] [id number] [address] [place] [address] Jul, Allergic conjunctivitis of b oth eyes H10.13 [place] [address] [id number] [address] [place] [id number] 27 Jun, 2019 Hypokalemia E87.6 [place] [address] [facility] [id number] [address] [place] [id number] 27 Jun, 2019 [facility] [address] [facility] [id number] [address] [place] [id number] Jun, Neuroforaminal stenosis of s pine M99.89 [place] [address] [facility] [id number] [address] [place] [id number] 19 Jun, 2019 Lateral epicondylitis, left elbow M77.12 and Medial epicondylitis, left elbow M77.02 [place] [address] [facility] [id number] [place] [address] 16 Jun, 2019 Foraminal stenosis of lumbar region M48.061 ; Segmental dysfunction of thoracic region M99.02 ; Segmental dysfunction of lumbar region M99.03 and Segmental dysfunction of sacral region M99.04 [place] [address] [place] [id number] [address] [place] [id number] 28 May, 2019 Left elbow pain M25.522 [place] [address] [place] [id number] [address] [place] [id number] May, [place] [address] [place] [id number] [address] [place] [address] May, Left elbow pain M25.522 [place] [address] [place] [id number] [address] [place] [address] May, Neuroforaminal stenosis of s pine M99.89 [facility] [address] [facility] [id number] [address] [place] [id number] 26 May, 2019 Rhinosinusitis J32.9 ; Left elbow pain M25.522 and Neck pain M54.2 [place] [address] [facility] [id number] [address] [place] [id number] 14 May, 2019 Lateral epicondylitis of lef t elbow M77.12 [facility] [address] [id number] [address] [place] [id number] Apr, Neuroforaminal stenosis of s jose M99.89 [facility] [address] [id number] [address] [place] [id number] Apr, Essential hypertension I10 a nd Mixed hyperlipidemia E78.2 [facility] [address] [id number] [address] [place] [id number] Mar, Neuroforaminal stenosis of s jose M99.89 [facility] [address] [id number] [address] [place] [id number] Mar, Epicondylitis, lateral, left M77.12 [facility] [address] [id number] [address] [place] [id number] Mar, [facility] [address] [id number] [address] [place] [id number] Mar, Neuroforaminal stenosis of s jose M99.89 [facility] [address] [id number] [address] [place] [id number] Feb, Neuroforaminal stenosis of ayal garcia M99.89 ; Essential hypertension I10 ; Mixed hyperlipidemia E78.2 ; Encounter for immunization Z23 and Seasonal allergies J30.2 [facility] [address] [id number] [address] [place] [address] Jan, Neuroforaminal stenosis of s jose M99.89 [facility] [address] [id number] [address] [place] [phone] Dec, Neuroforaminal stenosis of s jose M99.89 [facility] [address] [id number] [address] [place] [id number] Dec, Neuroforaminal stenosis of s pine M99.89 [facility] [address] [id number] [address] [place] [id number] Nov, [facility] [address] [id number] [address] [place] [phone] Nov, Neuroforaminal stenosis of s pine M99.89 [facility] [address] [id number] [address] [place] [phone] Nov, Acute non-recurrent maxillar y sinusitis J01.00 [facility] [address] [id number] [address] [place] [phone] Oct, Hypokalemia E87.6 [facility] [address] [id number] [address] [place] [id number] Oct, Wasp sting, undetermined int ent, initial encounter T63.464A and Cellulitis of left lower extremity L03.116 [place] [address] [id number] [address] [place] [id number] Oct, Neuroforaminal stenosis of s pine M99.89 [place] [address] [id number] [address] [place] [id number] Sep, [place] [address] [id number] [address] [place] [phone] Sep, [place] [address] [id number] [address] [place] [id number] Sep, Routine screening for STI (s exually transmitted infection) Z11.3 [place] [address] [id number] [address] [place] [id number] Sep, Routine screening for STI (s exually transmitted infection) Z11.3 ; Well woman exam with routine gynecological exam Z01.419 and Breast cancer screening Z12.39 [facility] [address] [id number] [address] [place] [phone] Sep, Neuroforaminal stenosis of s pine M99.89 [facility] [address] [id number] [address] [place] [phone] August, Neuroforaminal stenosis of s pine M99.89 [place] [address] [id number] [address] [place] [id number] August, Neuroforaminal stenosis of s pine M99.89 ; Chronic pain due to trauma G89.21 and Mixed hyperlipidemia E78.2 [facility] [address] [id number] [address] [place] [id number] Jul, Viral upper respiratory illn ess J06.9 and Acute non-recurrent frontal sinusitis J01.10 [facility] [address] [id number] [address] [place] [id number] Jul, Congestion of nasal sinus R0 9.81 [facility] [address] [id number] [address] [place] [address] Jul, Neuroforaminal stenosis of s pine M99.89 and Essential hypertension I10 [facility] [address] [id number] [address] [place] [phone] May, Neuroforaminal stenosis of s pine M99.89 [facility] [address] [id number] [address] [place] [id number] May, [facility] [address] [id number] [address] [place] [phone] May, Congestion of nasal sinus R0 9.81 [facility] [address] [id number] [address] [place] [id number] May, [facility] [address] [id number] [address] [place] [id number] Apr, Neuroforaminal stenosis of s pine M99.89 [facility] [address] [id number] [address] [place] [id number] Apr, Neuroforaminal stenosis of s pine M99.89 and Chronic pain due to trauma G89.21 [facility] [address] [facility] [id number] [address] [place] [id number] Mar, UTI (urinary tract infection ) N39.0 [facility] [address] [facility] [id number] [address] [place] [phone] Mar, Vertigo R42 [facility] [address] [id number] [address] [place] [address] Mar, Neuroforaminal stenosis of s jose M99.89 [facility] [address] [facility] [id number] [address] [place] [id number] Feb, Extensor tendon disruption M 67.89 [facility] [address] [facility] [id number] [address] [place] [id number] Feb, Neuroforaminal stenosis of s jose M99.89 and High risk medication use Z79.899 [facility] [address] [id number] [address] [place] [address] Jan, Hypokalemia E87.6 [facility] [address] [facility] [id number] [address] [place] [id number] Jan, Flank pain R10.9 and Acute r ight-sided low back pain without sciatica M54.5 [facility] [address] [facility] [id number] [address] [place] [id number] Jan, Hypokalemia E87.6 [facility] [address] [facility] [id number] [address] [place] [id number] Jan, [facility] [address] [facility] [id number] [address] [place] [id number] Jan, URI, acute J06.9 [facility] [address] [facility] [id number] [address] [place] [id number] 05 Jan, 2018 Neuroforaminal stenosis of s jose M99.89 [facility] [address] [facility] [id number] [address] [place] [id number] 13 Dec, 2017 Lateral epicondylitis, right elbow M77.11 [facility] [address] [facility] [id number] [address] [place] [id number] 11 Dec, 2017 Allergic rhinitis due to monica rosalina, unspecified seasonality J30.1 and Allergic conjunctivitis of both eyes H10.13 [facility] [address] [place] [id number] [address] [place] [id number] 10 Dec, 2017 Neuroforaminal stenosis of s pine M99.89 [place] [address] [place] [id number] [address] [place] [id number] 06 Dec, 2017 Mixed hyperlipidemia E78.2 [place] [address] [place] [id number] [address] [place] [id number] 05 Dec, 2017 Abnormal glucose R73.09 ; Ab normal renal ultrasound R93.429 ; Dysuria R30.0 ; Cystitis without hematuria N30.90 ; Hypokalemia E87.6 ; Mixed hyperlipidemia E78.2 and Hematuria, unspecified type R31.9 [place] [address] [place] [id number] [address] [place] [id number] Nov, Hypokalemia E87.6 ; Mixed hy perlipidemia E78.2 and Hematuria, unspecified type R31.9 [place] [id number] [place] [address] Nov, [place] [address] [place] [id number] [address] [place] [phone] Nov, Hypokalemia E87.6 [place] [address] [place] [id number] [address] [place] [id number] Nov, [place] [address] [place] [id number] [address] [place] [id number] Nov, Abnormal renal ultrasound R9 3.429 [place] [address] [place] [id number] [address] [place] [phone] Nov, Abnormal renal ultrasound R9 3.429 [place] [address] [place] [id number] [address] [place] [id number] Nov, Hematuria, unspecified type R31.9 and 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 [place] [address] [place] [id number] [address] [place] [id number] Nov, Dysuria R30.0 [place] [address] [id number] [address] [place] [phone] Oct, Lateral epicondylitis, right elbow M77.11 [place] [address] [id number] [address] [place] [id number] Oct, Neuroforaminal stenosis of s pine M99.89 ; Visit for TB skin test Z11.1 and Essential hypertension I10 [place] [address] [id number] [address] [place] [phone] Oct, [place] [address] [id number] [address] [place] [id number] Oct, Neuroforaminal stenosis of s pine M99.89 [place] [address] [id number] [address] [place] [phone] Oct, Visit for TB skin test Z11.1 [place] [address] [id number] [address] [place] [id number] 05 Oct, 2017 Cystitis without hematuria N 30.90 [place] [address] [id number] [address] [place] [id number] Sep, Screening breast examination Z12.39 [place] [address] [id number] [address] [place] [id number] Sep, Dysuria R30.0 and Cystitis w ithout hematuria N30.90 [place] [address] [id number] [address] [place] [id number] 14 Sep, 2017 Essential hypertension I10 a nd 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 [place] [address] [id number] [address] [place] [id number] Sep, Abnormal glucose R73.09 [place] [address] [id number] [address] [place] [id number] August, Lateral epicondylitis, right elbow M77.11 [place] [address] [id number] [address] [place] [phone] August, Screen for STD (sexually tra nsmitted disease) Z11.3 [place] [address] [id number] [address] [place] [phone] August, Neuroforaminal stenosis of ayla garcia M99.89 ; Mixed hyperlipidemia E78.2 ; Elevated fasting glucose R73.01 ; Screening mammogram, encounter for Z12.31 and Encounter for well woman exam without gynecological exam Z00.00 [place] [address] [id number] [address] [place] [phone] August, Neuroforaminal stenosis of s jose M99.89 [place] [address] [id number] [address] [place] [address] August, Essential hypertension I10 ; Hypokalemia E87.6 and Mixed hyperlipidemia E78.2 [place] [address] [id number] [address] [place] [id number] Jul, [place] [address] [id number] [address] [place] [address] Jul, Neuroforaminal stenosis of ayla garcia M99.89 [place] [address] [id number] [address] [place] [phone] Jul, Lateral epicondylitis, right elbow M77.11 [place] [address] [id number] [address] [place] [address] Jul, [place] [address] [id number] [address] [place] [id number] Jun, High ankle sprain of right l ower extremity, initial encounter S93.431A [place] [address] [id number] [address] [place] [address] Jun, Essential hypertension I10 [place] [address] [id number] [address] [place] [phone] Jun, [place] [address] [facility] [id number] [address] [place] [phone] Jun, [place] [address] [address] Jun, Neuroforaminal stenosis of s pine M99.89 [place] [address] [address] Jun, Pain of right upper extremit y M79.601 and Essential hypertension I10 [place] [address] [id number] Jun, [place] [address] [id number] Jun, Dysuria R30.0 ; Acute cystit is with hematuria N30.01 and Screen for STD (sexually transmitted disease) Z11.3 [place] [address] [id number] May, Chronic pain due to trauma G 89.21 [place] [address] [address] May, Essential hypertension I10 [place] [address] [address] May, Neuroforaminal stenosis of s pine M99.89 [place] [address] [address] Apr, Allergic reaction, initial e ncounter T78.40XA [place] [address] [phone] Apr, Low back pain, unspecified b ack pain laterality, unspecified chronicity, with sciatica presence unspecified M54.5 ; Acute cystitis with hematuria N30.01 ; 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 ; Bilateral acute serous otitis media, recurrence not specified H65.03 ; Mixed hyperlipidemia E78.2 ; Essential hypertension I10 ; Immunization counseling Z71.89 and Encounter for immunization Z23 [place] [address] [address] Apr, Neck pain M54.2 [facility] [address] [id number] [address] [place] [phone] Mar, Neuroforaminal stenosis of s pine M99.89 [facility] [address] [id number] [address] [place] [id number] Mar, Pharyngitis due to other org anism J02.8 [facility] [address] [id number] [address] [place] [id number] Feb, Neuroforaminal stenosis of s pine M99.89 [facility] [address] [id number] [address] [place] [address] Feb, UTI (urinary tract infection ) N39.0 [facility] [address] [id number] [address] [place] [id number] Feb, Recent urinary tract infecti on Z87.440 ; 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 ; Neck pain M54.2 ; Chronic pain due to trauma G89.21 and Recurrent UTI N39.0 [facility] [address] [id number] [address] [place] [phone] Feb, [facility] [address] [id number] [address] [place] [id number] Jan, Neuroforaminal stenosis of s pine M99.89 [facility] [address] [id number] [address] [place] [phone] Dec, Neuroforaminal stenosis of s pine M99.89 [facility] [address] [id number] [address] [place] [phone] 18 Dec, 2016 Acute seasonal allergic rhin itis due to pollen J30.1 [facility] [address] [id number] [address] [place] [id number] 08 Dec, 2016 [facility] [address] [id number] [address] [place] [phone] Dec, Acute seasonal allergic rhin itis, unspecified trigger J30.2 ; Allergic conjunctivitis of both eyes H10.13 and Dysfunction of both eustachian tubes H69.83 [place] [address] [facility] [id number] [address] [place] [id number] 07 Dec, 2016 [place] [address] [facility] [id number] [address] [place] [phone] Dec, Nevus D22.9 [place] [address] [facility] [id number] [address] [place] [phone] Nov, Chronic pain due to trauma G 89.21 and 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 [place] [address] [facility] [id number] [place] [address] Nov, Neuroforaminal stenosis of s pine M99.89 ; Essential hypertension I10 ; Mixed hyperlipidemia E78.2 ; Hypokalemia E87.6 ; Neck pain M54.2 and Nevus D22.9 [place] [address] [id number] [address] [place] [address] Oct, Neuroforaminal stenosis of s pine M99.89 [place] [address] [facility] [id number] [address] [place] [id number] Sep, Neuroforaminal stenosis of s pine M99.89 [place] [address] [facility] [id number] [address] [place] [id number] Sep, [place] [address] [facility] [id number] [address] [place] [id number] August, [place] [address] [facility] [id number] [address] [place] [phone] August, Neck pain M54.2 and Neurofor aminal stenosis of spine M99.89 [place] [address] [facility] [id number] [address] [place] [address] August, Routine gynecological examin ation Z01.419 and Screening breast examination Z12.39 [place] [address] [id number] [address] [place] [id number] Jul, [facility] [address] [id number] [address] [place] [id number] Jul, [facility] [address] [id number] [address] [place] [id number] Jul, Neuroforaminal stenosis of s pine M99.89 [facility] [address] [id number] [address] [place] [id number] Jul, [facility] [address] [id number] [address] [place] [id number] Jul, Neuroforaminal stenosis of l umbar 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 [facility] [address] [id number] [address] [place] [phone] Jul, [facility] [address] [id number] [address] [place] [id number] Jul, [facility] [address] [id number] [address] [place] [id number] Jun, Neuroforaminal stenosis of s pine M99.89 [facility] [address] [id number] [address] [place] [id number] Jun, Uterine leiomyoma, unspecifi ed location D25.9 and Allergic reaction caused by a drug, initial encounter T78.40XA [facility] [address] [id number] [address] [place] [id number] Jun, [facility] [address] [id number] [address] [place] [phone] May, UTI symptoms R39.9 and Pain of right sacroiliac joint M53.3 [facility] [address] [id number] [address] [place] [phone] May, Neuroforaminal stenosis of s pine M99.89 [facility] [address] [id number] [address] [place] [id number] May, [facility] [address] [facility] [id number] [address] [place] [id number] May, Acute mucoid otitis media of left ear H65.112 and Acute non- recurrent maxillary sinusitis J01.00 [place] [address] [facility] [id number] [address] [place] [id number] May, Acute bacterial conjunctivit is of both eyes H10.33 ; Left arm pain M79.602 and Hypokalemia E87.6 [place] [address] [id number] [address] [place] [id number] Apr, [place] [address] [facility] [id number] [address] [place] [id number] Apr, Neuroforaminal stenosis of s pine M99.89 ; Neck pain M54.2 ; Chronic pain due to trauma G89.21 ; Mixed hyperlipidemia E78.2 ; Essential hypertension I10 and Hypokalemia E87.6 [place] [address] [id number] [address] [place] [address] Mar, Oral candidiasis B37.0 ; Nathaniel roforaminal stenosis of spine M99.89 ; Neck pain M54.2 and Chronic pain due to trauma G89.21 [place] [address] [facility] [id number] [address] [place] [address] Feb, [place] [address] [facility] [id number] [address] [place] [id number] Feb, [place] [address] [id number] [address] [place] [address] Feb, UTI (urinary tract infection ) N39.0 [place] [address] [facility] [id number] [address] [place] [address] Feb, Dysuria R30.0 [place] [address] [facility] [id number] [address] [place] [address] Feb, Dysuria R30.0 [place] [address] [id number] [address] [place] [address] Feb, Neuroforaminal stenosis of s pine M99.89 ; Neck pain M54.2 ; Essential hypertension I10 ; Chronic pain due to trauma G89.21 ; Dysuria R30.0 ; Abnormal MRI, shoulder R93.8 and Acute cystitis without hematuria N30.00 [facility] [address] [id number] [address] [place] [address] Jan, [facility] [address] [id number] [address] [place] [address] Jan, [facility] [address] [id number] [address] [place] [address] Jan, [facility] [address] [id number] [address] [place] [address] Jan, Abnormal MRI R93.8 [facility] [address] [id number] [address] [place] [id number] 29 Dec, 2015 [facility] [address] [id number] [address] [place] [id number] 15 Dec, 2015 Acute pain of left shoulder M25.512 [facility] [address] [id number] [address] [place] [id number] 09 Dec, 2015 [facility] [address] [id number] [address] [place] [id number] 08 Dec, 2015 [facility] [address] [id number] [address] [place] [id number] 07 Dec, 2015 Acute pain of left shoulder M25.512 [facility] [address] [id number] [address] [place] [address] Nov, [facility] [address] [facility] [id number] [address] [place] [id number] 16 Nov, 2015 Neuroforaminal stenosis of s pine M99.89 ; Neck pain M54.2 ; Abnormal mammogram R92.8 ; Essential hypertension I10 and Chronic pain due to trauma G89.21 [facility] [address] [id number] [address] [place] [id number] Nov, [facility] [address] [id number] [address] [place] [id number] Oct, Acute stress disorder F43.0 [facility] [address] [id number] [address] [place] [address] Oct, [facility] [address] [id number] [address] [place] [address] Oct, [facility] [address] [id number] [address] [place] [id number] Oct, [facility] [address] [id number] [address] [place] [address] Sep, [facility] [address] [id number] [address] [place] [address] August, [facility] [address] [id number] [address] [place] [address] Jul, Neuroforaminal stenosis of s pine M99.89 ; Neck pain M54.2 ; Abnormal mammogram R92.8 and Essential hypertension I10 [facility] [address] [id number] [address] [place] [id number] Jul, [facility] [address] [id number] [address] [place] [id number] Jul, [facility] [address] [id number] [address] [place] [address] Jul, Abnormal mammogram R92.8 [facility] [address] [id number] [address] [place] [address] Jul, [facility] [address] [id number] [address] [place] [address] Jul, UTI (urinary tract infection ) N39.0 [facility] [address] [id number] [address] [place] [address] Jul, Dysuria R30.0 [facility] [address] [facility] [id number] [address] [place] [id number] Jun, [facility] [address] [facility] [id number] [address] [place] [id number] Jun, [facility] [address] [facility] [id number] [address] [place] [address] Jun, Hypokalemia E87.6 and Hematu martina R31.9 [facility] [address] [facility] [id number] [address] [place] [address] Jun, Hypokalemia E87.6 [place] [address] [facility] [id number] [address] [place] [phone] Jun, [place] [address] [place] [id number] [address] [place] [id number] Jun, Hypokalemia E87.6 [place] [address] [facility] [id number] [address] [place] [address] Jun, Hypokalemia E87.6 [place] [address] [facility] [id number] [address] [place] [phone] Jun, Neuroforaminal stenosis of s pine M99.89 ; Hypokalemia E87.6 ; Neck pain M54.2 ; Essential hypertension I10 ; Mixed hyperlipidemia E78.2 and Screening breast examination Z12.39 [place] [address] [facility] [id number] [address] [place] [phone] Jun, Dysuria R30.0 ; UTI (urinary tract infection) N39.0 and Hematuria R31.9 [place] [address] [facility] [id number] [address] [place] [id number] May, [place] [address] [facility] [id number] [address] [place] [address] May, High risk sexual behavior Z7 2.51 ; Hypokalemia E87.6 ; Neuroforaminal stenosis of spine M99.89 ; Neck pain M54.2 ; Essential hypertension I10 ; Mixed hyperlipidemia E78.2 ; STD exposure Z20.2 and Concern about STD in female without diagnosis Z71.1 [facility] [address] [id number] 16 May, 2015 Neuroforaminal stenosis of s pine M99.89 ; Neck pain M54.2 ; Hypokalemia E87.6 ; Essential hypertension I10 and Mixed hyperlipidemia E78.2 [facility] [address] [address] 11 May, 2015 [facility] [address] [place] [id number] [place] [phone] 08 May, 2015 High risk sexual behavior Z7 2.51 ; STD exposure Z20.2 and Concern about STD in female without diagnosis Z71.1 [place] [address] [id number] May, [place] [address] [address] Apr, Neuroforaminal stenosis of s pine M99.89 ; Mixed hyperlipidemia E78.2 ; Essential hypertension I10 and Hypokalemia E87.6 [place] [address] [address] Mar, [place] [address] [address] Mar, Hypokalemia E87.6 [place] [address] [place] [id number] [address] [place] [address] Mar, Neuroforaminal stenosis of s pine M99.89 ; Mixed hyperlipidemia E78.2 ; Neck pain M54.2 ; Essential hypertension I10 ; Abnormal fasting glucose R73.09 ; Hypokalemia E87.6 and Constipation K59.00 [place] [address] [address] Feb, Neuroforaminal stenosis of s 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 ; Mixed hyperlipidemia E78.2 ; Neck pain M54.2 ; Essential hypertension I10 ; Abnormal fasting glucose R73.09 ; Hypokalemia E87.6 and Constipation K59.00 [place] [address] [id number] [address] [place] [address] Feb, Elevated fasting blood sugar R73.01 [place] [address] [facility] [id number] [address] [place] [phone] Feb, Elevated fasting blood sugar R73.01 [place] [address] [facility] [id number] [address] [place] [address] Feb, Hair loss L65.9 [place] [address] [place] [id number] [address] [place] [address] Feb, Sinusitis J32.9 ; Essential hypertension I10 and Hair loss L65.9 [place] [address] [place] [id number] [address] [place] [phone] Jan, [place] [address] [place] [id number] [address] [place] [phone] Jan, Essential hypertension I10 ; Neuroforaminal stenosis of spine M99.89 ; Neck pain M54.2 ; Mixed hyperlipidemia E78.2 and Anxiety F41.9 [place] [address] [place] [id number] [address] [place] [id number] Jan, [place] [address] [place] [id number] [address] [place] [address] Jan, Mixed hyperlipidemia E78.2 ; Essential (primary) hypertension I10 ; Strain of muscle, fascia and tendon at neck level, subsequent encounter S16.1XXD and Tension-type headache, unspecified, not intractable G44.209 [place] [address] [facility] [id number] [address] [place] [address] Dec, Lumbar back pain 724.2 and N euroforaminal stenosis of spine 724.00 [place] [address] [place] [id number] [address] [place] [phone] Nov, [facility] [address] [id number] [address] [place] [id number] Nov, Lumbar back pain 724.2 and N euroforaminal stenosis of spine 724.00 [facility] [address] [id number] [address] [place] [address] Nov, Edema 782.3 ; Lumbar back pa in 724.2 ; Essential hypertension, benign 401.1 ; Hyperlipemia 272.4 ; Neuroforaminal stenosis of spine 724.00 and Post-concussion headache 339.20 [facility] [address] [id number] [address] [place] [id number] Nov, [facility] [address] [id number] [address] [place] [phone] Nov, [facility] [address] [id number] [address] [place] [address] Oct, Essential hypertension, sheridan gn 401.1 [facility] [address] [id number] [address] [place] [address] Oct, Edema 782.3 ; Lumbar back pa in 724.2 ; Essential hypertension, benign 401.1 ; Hyperlipemia 272.4 ; Neuroforaminal stenosis of spine 724.00 and Post-concussion headache 339.20 [facility] [address] [id number] [address] [place] [phone] Oct, [facility] [address] [id number] [address] [place] [phone] Oct, Edema 782.3 [facility] [address] [id number] [address] [place] [address] Oct, Lumbar back pain 724.2 [facility] [address] [id number] [address] [place] [address] Oct, Cervicalgia 723.1 ; Lumbar b ack pain 724.2 and High risk medication use V58.69 [facility] [address] [id number] [address] [place] [address] Sep, [facility] [address] [id number] [address] [place] [phone] Sep, Lumbar strain 847.2 [facility] [address] [facility] [id number] [address] [place] [address] August, Edema 782.3 and Eustachian t ube dysfunction 381.81 [facility] [address] [id number] [address] [place] [id number] August, [facility] [address] [id number] [address] [place] [address] August, Eustachian tube dysfunction 381.81 [facility] [address] [facility] [id number] [address] [place] [address] Jul, Otalgia 388.70 and Otitis me jonathon 382.9 [facility] [address] [id number] [address] [place] [id number] Jul, [facility] [address] [id number] [address] [place] [id number] Jul, [facility] [address] [id number] [address] [place] [address] Jul, [facility] [address] [id number] [address] [place] [phone] 14 Jul, 2014 [facility] [address] [id number] [address] [place] [id number] 13 Jul, 2014 [facility] [address] [id number] [address] [place] [phone] Jun, [facility] [address] [id number] [address] [place] [address] Jun, [facility] [address] [id number] [address] [place] [id number] Jun, [facility] [address] [id number] [address] [place] [address], [place] [address] May, 2014 [facility] [address] [id number] [address] [place] [address], [place] [address] May, 2014 [facility] [address] [id number] [address] [place] [address], [place] [address] May, 2014 [facility] [address] [id number] [address] [place] [address], [place] [address] May, 2014 [facility] [address] [id number] [address] [place] [address], [place] [address] May, 2014 [facility] [address] [id number] [address] [place] [address], [place] [address] May, 2014 [facility] [address] [id number] [address] [place] [address], [place] [address] May, 2014 [facility] [address] [id number] [address] [place] [address], [place] [address] May, 2014 [facility] [address] [id number] [address] [place] [address], [place] [address] May, [facility] [address] [id number] [address] [place] [address], [place] [address] May, [facility] [address] [id number] [address] [place] [address], [place] [address] Apr, [facility] [address] [id number] [address] [place] [address], [place] [address] Apr, [facility] [address] [id number] [address] [place] [address], [place] [address] Apr, [facility] [address] [id number] [address] [place] [address], [place] [address] Apr, [facility] [address] [id number] [address] [place] [address], [place] [address] Apr, [facility] [address] [id number] [address] [place] [address], [place] [address] Apr, [facility] [address] [id number] [address] [place] [address], [place] [address] Apr, [facility] [address] [id number] [address] [place] [address], [place] [address] Apr, [facility] [address] [id number] [address] [place] [address], [place] [address] Apr, [facility] [address] [id number] [address] [place] [address], [place] [address] Apr, [facility] [address] [id number] [address] [place] [address], [place] [address] Apr, [facility] [address] [id number] [address] [place] [address], [place] [address] Apr, [facility] [address] [id number] [address] [place] [address], [place] [address] Apr, [facility] [address] [id number] [address] [place] [address], [place] [address] Apr, [facility] [address] [id number] [address] [place] [address], [place] [address] Apr, [facility] [address] [id number] [address] [place] [address], [place] [address] Mar, [facility] [address] [id number] [address] [place] [address], [place] [address] Mar, [facility] [address] [id number] [address] [place] [address], [place] [address] Mar, [facility] [address] [id number] [address] [place] [address], [place] [address] Mar, [facility] [address] [id number] [address] [place] [address], [place] [address] Feb, [facility] [address] [id number] [address] [place] [address], [place] [address] Feb, [facility] [address] [id number] [address] [place] [address], [place] [address] Feb, [facility] [address] [id number] [address] [place] [address], [place] [address] Feb, [facility] [address] [id number] [address] [place] [address], [place] [address] Jan, [facility] [address] [id number] [address] [place] [address], [place] [address] Jan, [facility] [address] [id number] [address] [place] [address], [place] [address] Jan, [facility] [address] [id number] [address] [place] [address], [place] [address] Jan, [facility] [address] [id number] [address] [place] [address], [place] [address] Jan, [facility] [address] [id number] [address] [place] [address], [place] [address] Jan, [facility] [address] [id number] [address] [place] [address], [place] [address] Jan, [facility] [address] [id number] [address] [place] [address], [place] [address] Jan, [facility] [address] [id number] [address] [place] [address], [place] [address] Dec, [facility] [address] [id number] [address] [place] [address], [place] [address] 29 Dec, 2013 [facility] [address] [id number] [address] [place] [address], [place] [address] Dec, [facility] [address] [id number] [address] [place] [address], [place] [address] Dec, [facility] [address] [id number] [address] [place] [address], [place] [address] Oct, [facility] [address] [id number] [address] [place] [address], [place] [address] Oct, [facility] [address] [id number] [facility] [place] [address] Oct, 2013 [facility] [address] [id number] [address] [place] [address], [place] [address] Oct, 2013 [facility] [address] [id number] [address] [place] [address], [place] [address] Oct, 2013 [facility] [address] [id number] [address] [place] [address], [place] [address] Oct, 2013 [facility] [address] [id number] [address] [place] [address], [place] [address] Oct, 2013 [facility] [address] [id number] [address] [place] [address], [place] [address] Oct, 2013 [facility] [address] [id number] [address] [place] [address], [place] [address] Sep, [facility] [address] [id number] [address] [place] [address], [place] [address] Sep, [facility] [address] [id number] [address] [place] [address], [place] [address] Sep, [facility] [address] [id number] [address] [place] [address], [place] [address] Sep, [facility] [address] [id number] [address] [place] [address], [place] [address] Sep, [facility] [address] [id number] [address] [place] [address], [place] [address] Sep, [facility] [address] [id number] [address] [place] [address], [place] [address] Sep, [facility] [address] [id number] [address] [place] [address], [place] [address] Sep, [facility] [address] [id number] [address] [place] [address], [place] [address] Sep, [facility] [address] [id number] [address] [place] [address], [place] [address] Sep, [facility] [address] [id number] [address] [place] [address], [place] [address] August, [facility] [address] [id number] [address] [place] [address], [place] [address] August, [facility] [address] [id number] [address] [place] [address], [place] [address] August, [facility] [address] [id number] [address] [place] [address], [place] [address] August, [facility] [address] [id number] [address] [place] [address], [place] [address] August, [facility] [address] [id number] [address] [place] [address], [place] [address] August, [facility] [address] [id number] [address] [place] [address], [place] [address] August, [facility] [address] [id number] [address] [place] [address], [place] [address] August, [facility] [address] [id number] [address] [place] [address], [place] [address] August, [facility] [address] [id number] [address] [place] [address], [place] [address] August, [facility] [address] [id number] [address] [place] [address], [place] [address] August, [facility] [address] [id number] [address] [place] [address], [place] [address] August, [facility] [address] [id number] [address] [place] [address], [place] [address] Jul, [facility] [address] [id number] [address] [place] [address], [place] [address] Jul, [facility] [address] [id number] [address] [place] [address], [place] [address] Jul, [facility] [address] [id number] [facility] [place] [address] Jul, [facility] [address] [id number] [address] [place] [address], [place] [address] Jul, [facility] [address] [id number] [address] [place] [address], [place] [address] Jul, [facility] [address] [id number] [address] [place] [address], [place] [address] Jun, [facility] [address] [id number] [address] [place] [address], [place] [address] Jun, [facility] [address] [id number] [address] [place] [address], [place] [address] May, [facility] [address] [id number] [address] [place] [address], [place] [address] May, [facility] [address] [id number] [address] [place] [address], [place] [address] Apr, [facility] [address] [id number] [address] [place] [address], [place] [address] Apr, [facility] [address] [id number] [address] [place] [address], [place] [address] Apr, [facility] [address] [id number] [address] [place] [address], [place] [address] Apr, [facility] [address] [id number] [address] [place] [address], [place] [address] Apr, [facility] [address] [id number] [address] [place] [address], [place] [address] Apr, [facility] [address] [id number] [address] [place] [address], [place] [address] Apr, [facility] [address] [id number] [address] [place] [address], [place] [address] Apr, [facility] [address] [id number] [address] [place] [address], [place] [address] Apr, [facility] [address] [id number] [address] [place] [address], [place] [address] Apr, [facility] [address] [id number] [address] [place] [address], [place] [address] Apr, [facility] [address] [id number] [address] [place] [address], [place] [address] Apr, [facility] [address] [id number] [address] [place] [address], [place] [address] Apr, [facility] [address] [id number] [address] [place] [address], [place] [address] Mar, [facility] [address] [id number] [address] [place] [address], [place] [address] Mar, [facility] [address] [id number] [address] [place] [address], [place] [address] Mar, [facility] [address] [id number] [address] [place] [address], [place] [address] Mar, [facility] [address] [id number] [address] [place] [address], [place] [address] Feb, [facility] [address] [id number] [address] [place] [address], [place] [address] Feb, [facility] [address] [id number] [address] [place] [address], [place] [address] Feb, [facility] [address] [id number] [address] [place] [address], [place] [address] Feb, [facility] [address] [id number] [address] [place] [address], [place] [address] 14 Jan, 2013 [facility] [address] [id number] [address] [place] [address], [place] [address] 14 Jan, 2013 [facility] [address] [id number] [address] [place] [address], [place] [address] 11 Jan, 2013 [facility] [address] [id number] [address] [place] [address], [place] [address] Jan, [facility] [address] [id number] [address] [place] [address], [place] [address] Jan, [facility] [address] [id number] [address] [place] [address], [place] [address] Jan, [facility] [address] [id number] [address] [place] [address], [place] [address] Jan, [facility] [address] [id number] [address] [place] [address], [place] [address] Jan, [facility] [address] [id number] [address] [place] [address], [place] [address] Jan, [facility] [address] [id number] [address] [place] [address], [place] [address] 26 Dec, 2012 [facility] [address] [id number] [address] [place] [address], [place] [address] 16 Dec, 2012 [facility] [address] [id number] [address] [place] [address], [place] [address] 16 Dec, 2012 [facility] [address] [id number] [address] [place] [address], [place] [address] 13 Dec, 2012 [facility] [address] [id number] [address] [place] [address], [place] [address] Nov, [facility] [address] [id number] [address] [place] [address], [place] [address] 17 Nov, 2012 [facility] [address] [id number] [address] [place] [address], [place] [address] 14 Nov, 2012 [facility] [address] [id number] [address] [place] [address], [place] [address] 05 Nov, 2012 [facility] [address] [id number] [address] [place] [address], [place] [address] 18 Oct, 2012 [facility] [address] [id number] [address] [place] [address], [place] [address] Sep, [facility] [address] [id number] [address] [place] [address], [place] [address] August, [facility] [address] [id number] [address] [place] [address], [place] [address] August, [facility] [address] [id number] [address] [place] [address], [place] [address] August, [facility] [address] [id number] [address] [place] [address], [place] [address] August, [facility] [address] [id number] [address] [place] [address], [place] [address] August, [facility] [address] [id number] [address] [place] [address], [place] [address] August, [facility] [address] [id number] [address] [place] [address], [place] [address] August, [facility] [address] [id number] [address] [place] [address], [place] [address] August, [facility] [address] [id number] [address] [place] [address], [place] [address] August, [facility] [address] [id number] [address] [place] [address], [place] [address] August, [facility] [address] [id number] [address] [place] [address], [place] [address] August, [facility] [address] [id number] [address] [place] [address], [place] [address] August, [facility] [address] [id number] [address] [place] [address], [place] [address] Jul, [facility] [address] [id number] [address] [place] [address], [place] [address] Jul, [facility] [address] [id number] [address] [place] [address], [place] [address] Jul, [facility] [address] [id number] [address] [place] [address], [place] [address] 15 Jul, 2012 [facility] [address] [id number] [address] [place] [address], [place] [address] 09 Jul, 2012 [facility] [address] [id number] [address] [place] [address], [place] [address] 08 Jul, 2012 [facility] [address] [id number] [address] [place] [address], [place] [address] 04 Jul, 2012 [facility] [address] [id number] [address] [place] [address], [place] [address] Jul, [facility] [address] [id number] [address] [place] [address], [place] [address] Jul, [facility] [address] [id number] [address] [place] [address], [place] [address] Jul, [facility] [address] [id number] [address] [place] [address], [place] [address] Jul, [facility] [address] [id number] [address] [place] [address], [place] [address] Jun, [facility] [address] [id number] [address] [place] [address], [place] [address] Jun, [facility] [address] [id number] [address] [place] [address], [place] [address] Jun, [facility] [address] [id number] [address] [place] [address], [place] [address] Jun, [facility] [address] [id number] [address] [place] [address], [place] [address] 28 May, 2012 [facility] [address] [id number] [address] [place] [address], [place] [address] 14 May, 2012 [facility] [address] [id number] [address] [place] [address], [place] [address] 05 May, 2012 [facility] [address] [id number] [address] [place] [address], [place] [address] May, [facility] [address] [id number] [address] [place] [address], [place] [address] May, [facility] [address] [id number] [address] [place] [address], [place] [address] May, [facility] [address] [id number] [address] [place] [address], [place] [address] Apr, [facility] [address] [id number] [address] [place] [address], [place] [address] Apr, [facility] [address] [id number] [address] [place] [address], [place] [address] Apr, [facility] [address] [id number] [address] [place] [address], [place] [address] Apr, [facility] [address] [id number] [address] [place] [address], [place] [address] 15 Mar, 2012 [facility] [address] [id number] [address] [place] [address], [place] [address] 14 Mar, 2012 [facility] [address] [id number] [address] [place] [address], [place] [address] Mar, [facility] [address] [id number] [address] [place] [address], [place] [address] 14 Mar, 2012 [facility] [address] [id number] [address] [place] [address], [place] [address] Mar, [facility] [address] [id number] [address] [place] [address], [place] [address] 06 Mar, 2012 [facility] [address] [id number] [address] [place] [address], [place] [address] Mar, [facility] [address] [id number] [address] [place] [address], [place] [address] Feb, [facility] [address] [id number] [address] [place] [address], [place] [address] Feb, [facility] [address] [id number] [address] [place] [address], [place] [address] Feb, [facility] [address] [id number] [address] [place] [address], [place] [address] Feb, [facility] [address] [id number] [address] [place] [address], [place] [address] Jan, [facility] [address] [id number] [address] [place] [address], [place] [address] Jan, [facility] [address] [id number] [address] [place] [address], [place] [address] Jan, [facility] [address] [id number] [address] [place] [address], [place] [address] Jan, [facility] [address] [id number] [address] [place] [address], [place] [address] Jan, [facility] [address] [id number] [address] [place] [address], [place] [address] Jan, [facility] [address] [id number] [address] [place] [address], [place] [address] Dec, [facility] [address] [id number] [address] [place] [address], [place] [address] Dec, [facility] [address] [id number] [address] [place] [address], [place] [address] Nov, [facility] [address] [id number] [address] [place] [address], [place] [address] Sep, [facility] [address] [id number] [address] [place] [address], [place] [address] August, [facility] [address] [id number] [address] [place] [address], [place] [address] August, [facility] [address] [id number] [address] [place] [address], [place] [address] August, [facility] [address] [id number] [address] [place] [address], [place] [address] August, [facility] [address] [id number] [address] [place] [address], [place] [address] August, [facility] [address] [id number] [address] [place] [address], [place] [address] Jun, [facility] [address] [id number] [address] [place] [address], [place] [address] Jun, [facility] [address] [id number] [address] [place] [address], [place] [address] Apr, [facility] [address] [id number] [address] [place] [address], [place] [address] Apr, [facility] [address] [id number] [address] [place] [address], [place] [address] Mar, [facility] [address] [id number] [address] [place] [address], [place] [address] Feb, [facility] [address] [id number] [address] [place] [address], [place] [address] Feb, [facility] [address] [id number] [address] [place] [address], [place] [address] Feb, [facility] [address] [id number] [address] [place] [address], [place] [address] 17 Jan, 2011 [facility] [address] [id number] [address] [place] [address], [place] [address] 15 Jan, 2011 [facility] [address] [id number] [address] [place] [address] 15 Jan, 2011 [facility] [address] [id number] [address] [place] [address], [place] [address] 14 Jan, 2011 [facility] [address] [id number] [address] [place] [address], [place] [address] 15 May, 2010 [facility] [address] [id number] [address] [place] [address], [place] [address] 04 Mar, 2010 [facility] [address] [id number] [address] [place] [address] Oct, [facility] [address] [facility] [id number] [address] [place] [address] Sep, [facility] [address] [facility] [id number] [address] [place] [address] Mar, [facility] [address] [facility] [id number] [address] [place] [address] Jan, [facility] [address] [facility] [id number] [address] [place] [address] Jan, [facility] [address] [facility] [id number] [address] [place] [address] May, IMMUNIZATIONS No Known Immunizations SOCIAL HISTORY Never Assessed REASON FOR VISIT PLAN OF CARE VITAL SIGNS MEDICATIONS Unknown Medications RESULTS No Results PROCEDURES Procedure Date Ordered Result Body Site URINE CULTURE/COLONY COUNT August 16, 2012 INSTRUCTIONS MEDICATIONS ADMINISTERED No Known Medications MEDICAL (GENERAL) HISTORY Type Description Date Medical History hypertension Medical History Colposcopy with loop electro de excision of the cervix was performed 06/2012, mild squamous atypia (no definite dyplasia). Performed at [facility] Dr. Joy. Medical History Acute [...]
--- OUTSIDE RECORDS SUMMARY | 2019-11-23 05:38 | XMS REPORT ---
Author Author Liana JOY [facility] Address [address] [place] [address] Care Team Providers Care Complaint Operator Name Role Phone LESLIE ROSANNA Unavailable PROBLEMS Type Condition ICD9-CM Code [id number] Code Onset Dates Condition S tatus SNOMED Code Problem Hematuria, unspecified type R31.9 Ac tive 95206770 Problem Abnormal glucose R73.09 Active 102 282469 Problem Abnormal renal ultrasound R93.429 Acti ve [id number] Problem Neuroforaminal stenosis of spine M99.89 Active [id number] Problem Essential hypertension I10 Active 59764221 Problem Mixed hyperlipidemia E78.2 Active 32118718 Problem Other chronic pain G89.29 Active 8 1761484 Problem Neck pain M54.2 Active 71144786 Problem Slow transit constipation K59.01 Acti ve 18476127 Problem Anxiety F41.9 Active 10830167 Problem Hypokalemia E87.6 Active 61142530 Problem Chronic pain due to trauma G89.21 Act juanis 246901776 Problem Seasonal allergies J30.2 Active 4 28780082 Problem Rhinosinusitis J32.9 Active 21179 4004 ALLERGIES No Information ENCOUNTERS Encounter Location Date Diagnosis [place] [address] [facility] [id number] [address] [place] [phone] Jan, [facility] [address] [facility] [id number] [address] [place] [address] Oct, Neuroforaminal stenosis of s pine M99.89 [facility] [address] [facility] [id number] [address] [place] [address] Oct, [facility] [address] [facility] [id number] [address] [place] [address] Oct, Right flank pain R10.9 ; Low er abdominal pain R10.30 ; Slow transit constipation K59.01 and Neuroforaminal stenosis of spine M99.89 [facility] [address] [id number] [address] [place] [address] Oct, Neuroforaminal stenosis of s pine M99.89 [facility] [address] [id number] [address] [place] [address] Oct, Neuroforaminal stenosis of s pine M99.89 ; Screening breast examination Z12.39 and Other chronic pain G89.29 [facility] [address] [id number] [address] [place] [address] Sep, [place] [address] [facility] [id number] [address] [place] [address] Sep, Neuroforaminal stenosis of s pine M99.89 [facility] [address] [facility] [id number] [address] [place] [address] Sep, Encounter for laboratory luisa ting for COVID-19 virus V73.89 [place] [address] [facility] [id number] [address] [place] [address] August, Neuroforaminal stenosis of s pine M99.89 [place] [address] [facility] [id number] [address] [place] [address] August, Acute bacterial conjunctivit is of right eye H10.31 [facility] [address] [facility] [id number] [address] [place] [address] August, Low back pain M54.5 ; Other chronic pain G89.29 and Dysuria R30.0 [facility] [address] [facility] [id number] [address] [place] [address] August, [place] [address] [facility] [id number] [address] [place] [address] Jul, Neuroforaminal stenosis of s pine M99.89 [facility] [address] [facility] [id number] [address] [place] [address] Jul, Allergic conjunctivitis of b oth eyes H10.13 [facility] [address] [id number] [address] [place] [address] Jun, Hypokalemia E87.6 [facility] [address] [id number] [address] [place] [address] Jun, [facility] [address] [id number] [address] [place] [address] Jun, Neuroforaminal stenosis of s jose M99.89 [place] [address] [id number] [address] [place] [address] 19 Jun, 2019 Lateral epicondylitis, left elbow M77.12 and Medial epicondylitis, left elbow M77.02 [place] [address] [id number] [address] [place] [address] 16 Jun, 2019 Foraminal stenosis of lumbar region M48.061 ; Segmental dysfunction of thoracic region M99.02 ; Segmental dysfunction of lumbar region M99.03 and Segmental dysfunction of sacral region M99.04 [place] [address] [id number] [address] [place] [address] 28 May, 2019 Left elbow pain M25.522 [place] [address] [facility] [id number] [address] [place] [address] May, [place] [address] [id number] [address] [place] [address] May, Left elbow pain M25.522 [place] [address] [id number] [address] [place] [address] May, Neuroforaminal stenosis of s jose M99.89 [facility] [address] [facility] [id number] [address] [place] [address] 26 May, 2019 Rhinosinusitis J32.9 ; Left elbow pain M25.522 and Neck pain M54.2 [place] [address] [facility] [id number] [address] [place] [address] 14 May, 2019 Lateral epicondylitis of lef t elbow M77.12 [facility] [address] [id number] [address] [place] [address] Apr, Neuroforaminal stenosis of s pine M99.89 [facility] [address] [id number] [address] [place] [address] Apr, Essential hypertension I10 a nd Mixed hyperlipidemia E78.2 [facility] [address] [id number] [address] [place] [address] Mar, Neuroforaminal stenosis of s jose M99.89 [facility] [address] [id number] [address] [place] [address] Mar, Epicondylitis, lateral, left M77.12 [facility] [address] [id number] [address] [place] [address] Mar, [facility] [address] [id number] [address] [place] [address] Mar, Neuroforaminal stenosis of s jose M99.89 [facility] [address] [id number] [address] [place] [address] Feb, Neuroforaminal stenosis of ayla garcia M99.89 ; Essential hypertension I10 ; Mixed hyperlipidemia E78.2 ; Encounter for immunization Z23 and Seasonal allergies J30.2 [facility] [address] [id number] [address] [place] [address] Jan, Neuroforaminal stenosis of s pine M99.89 [facility] [address] [id number] [address] [place] [address] Dec, Neuroforaminal stenosis of s pine M99.89 [facility] [address] [id number] [address] [place] [address] Dec, Neuroforaminal stenosis of s pine M99.89 [facility] [address] [id number] [address] [place] [address] Nov, [facility] [address] [id number] [address] [place] [address] Nov, Neuroforaminal stenosis of s pine M99.89 [facility] [address] [id number] [address] [place] [address] Nov, Acute non-recurrent maxillar y sinusitis J01.00 [facility] [address] [id number] [address] [place] [address] Oct, Hypokalemia E87.6 [facility] [address] [id number] [address] [place] [address] Oct, Wasp sting, undetermined int ent, initial encounter T63.464A and Cellulitis of left lower extremity L03.116 [facility] [address] [id number] [address] [place] [address] Oct, Neuroforaminal stenosis of s pine M99.89 [facility] [address] [id number] [address] [place] [address] Sep, [facility] [address] [id number] [address] [place] [address] Sep, [facility] [address] [id number] [address] [place] [address] Sep, Routine screening for STI (s exually transmitted infection) Z11.3 [facility] [address] [id number] [address] [place] [address] Sep, Routine screening for STI (s exually transmitted infection) Z11.3 ; Well woman exam with routine gynecological exam Z01.419 and Breast cancer screening Z12.39 [facility] [address] [id number] [address] [place] [address] Sep, Neuroforaminal stenosis of s pine M99.89 [facility] [address] [id number] [address] [place] [address] August, Neuroforaminal stenosis of s pine M99.89 [facility] [address] [id number] [address] [place] [address] August, Neuroforaminal stenosis of s pine M99.89 ; Chronic pain due to trauma G89.21 and Mixed hyperlipidemia E78.2 [facility] [address] [id number] [address] [place] [address] Jul, Viral upper respiratory illn ess J06.9 and Acute non-recurrent frontal sinusitis J01.10 [facility] [address] [id number] [address] [place] [address] Jul, Congestion of nasal sinus R0 9.81 [facility] [address] [id number] [address] [place] [address] Jul, Neuroforaminal stenosis of s pine M99.89 and Essential hypertension I10 [facility] [address] [id number] [address] [place] [address] May, Neuroforaminal stenosis of s pine M99.89 [facility] [address] [id number] [address] [place] [address] May, [facility] [address] [id number] [address] [place] [address] May, Congestion of nasal sinus R0 9.81 [facility] [address] [id number] [address] [place] [address] May, [facility] [address] [id number] [address] [place] [address] Apr, Neuroforaminal stenosis of s pine M99.89 [facility] [address] [id number] [address] [place] [address] Apr, Neuroforaminal stenosis of s pine M99.89 and Chronic pain due to trauma G89.21 [facility] [address] [id number] [address] [place] [address] Mar, UTI (urinary tract infection ) N39.0 [facility] [address] [id number] [address] [place] [address] Mar, Vertigo R42 [facility] [address] [id number] [address] [place] [address] 03 Mar, 2018 Neuroforaminal stenosis of s jose M99.89 [facility] [address] [id number] [address] [place] [address] Feb, Extensor tendon disruption M 67.89 [facility] [address] [id number] [address] [place] [address] Feb, Neuroforaminal stenosis of s pine M99.89 and High risk medication use Z79.899 [facility] [address] [id number] [address] [place] [address] Jan, Hypokalemia E87.6 [facility] [address] [id number] [address] [place] [address] Jan, Flank pain R10.9 and Acute r ight-sided low back pain without sciatica M54.5 [facility] [address] [id number] [address] [place] [address] Jan, Hypokalemia E87.6 [facility] [address] [id number] [address] [place] [address] Jan, [facility] [address] [facility] [id number] [address] [place] [address] Jan, URI, acute J06.9 [facility] [address] [id number] [address] [place] [address] 05 Jan, 2018 Neuroforaminal stenosis of s jose M99.89 [facility] [address] [id number] [address] [place] [address] 13 Dec, 2017 Lateral epicondylitis, right elbow M77.11 [facility] [address] [facility] [id number] [address] [place] [address] 11 Dec, 2017 Allergic rhinitis due to monica rosalina, unspecified seasonality J30.1 and Allergic conjunctivitis of both eyes H10.13 [place] [address] [place] [id number] [address] [place] [address] Dec, Neuroforaminal stenosis of s pine M99.89 [place] [address] [place] [id number] [address] [place] [address] Dec, Mixed hyperlipidemia E78.2 [place] [address] [place] [id number] [place] [address] Dec, Abnormal glucose R73.09 ; Ab normal renal ultrasound R93.429 ; Dysuria R30.0 ; Cystitis without hematuria N30.90 ; Hypokalemia E87.6 ; Mixed hyperlipidemia E78.2 and Hematuria, unspecified type R31.9 [place] [address] [place] [id number] [place] [address] Nov, Hypokalemia E87.6 ; Mixed hy perlipidemia E78.2 and Hematuria, unspecified type R31.9 [place] [address] [place] [id number] [address] [place] [address] Nov, [place] [address] [place] [id number] [address] [place] [address] Nov, Hypokalemia E87.6 [place] [address] [place] [id number] [address] [place] [address] Nov, [place] [address] [place] [id number] [address] [place] [address] Nov, Abnormal renal ultrasound R9 3.429 [place] [address] [place] [id number] [address] [place] [address] Nov, Abnormal renal ultrasound R9 3.429 [place] [address] [facility] [id number] [address] [place] [address] Nov, Hematuria, unspecified type R31.9 and Neuroforaminal stenosis of spine M99.89 [place] [address] [place] [id number] [address] [place] [address] Nov, Dysuria R30.0 [facility] [address] [id number] [address] [place] [address] Oct, Lateral epicondylitis, right elbow M77.11 [facility] [address] [id number] [address] [place] [address] Oct, Neuroforaminal stenosis of s pine M99.89 ; Visit for TB skin test Z11.1 and Essential hypertension I10 [place] [address] [id number] [address] [place] [address] Oct, [place] [address] [id number] [address] [place] [address] Oct, Neuroforaminal stenosis of s pine M99.89 [place] [address] [id number] [address] [place] [address] Oct, Visit for TB skin test Z11.1 [place] [address] [id number] [address] [place] [address] Oct, Cystitis without hematuria N 30.90 [place] [address] [id number] [address] [place] [address] Sep, Screening breast examination Z12.39 [place] [address] [id number] [address] [place] [address] Sep, Dysuria R30.0 and Cystitis w ithout hematuria N30.90 [place] [address] [id number] [address] [place] [address] Sep, Essential hypertension I10 a nd 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 [place] [address] [id number] [address] [place] [address] Sep, Abnormal glucose R73.09 [place] [address] [id number] [address] [place] [address] August, Lateral epicondylitis, right elbow M77.11 [facility] [address] [id number] [address] [place] [address] August, Screen for STD (sexually tra nsmitted disease) Z11.3 [facility] [address] [id number] [address] [place] [address] August, Neuroforaminal stenosis of s jose M99.89 ; Mixed hyperlipidemia E78.2 ; Elevated fasting glucose R73.01 ; Screening mammogram, encounter for Z12.31 and Encounter for well woman exam without gynecological exam Z00.00 [facility] [address] [id number] [address] [place] [address] August, Neuroforaminal stenosis of s pine M99.89 [facility] [address] [id number] [address] [place] [address] August, Essential hypertension I10 ; Hypokalemia E87.6 and Mixed hyperlipidemia E78.2 [place] [address] [id number] [address] [place] [address] Jul, [facility] [address] [id number] [address] [place] [address] Jul, Neuroforaminal stenosis of s jose M99.89 [facility] [address] [id number] [address] [place] [address] Jul, Lateral epicondylitis, right elbow M77.11 [facility] [address] [id number] [address] [place] [address] Jul, [place] [address] [id number] [address] [place] [address] Jun, High ankle sprain of right l ower extremity, initial encounter S93.431A [place] [address] [id number] [address] [place] [address] Jun, Essential hypertension I10 [place] [address] [facility] [id number] [address] [place] [address] Jun, [place] [address] [place] [address] Jun, [place] [address] [place] [id number] [place] [address] Jun, Neuroforaminal stenosis of s pine M99.89 [place] [address] [address] Jun, Pain of right upper extremit y M79.601 and Essential hypertension I10 [place] [address] [place] [address] Jun, [place] [address] [address] Jun, Dysuria R30.0 ; Acute cystit is with hematuria N30.01 and Screen for STD (sexually transmitted disease) Z11.[address] [address] May, Chronic pain due to trauma G 89.21 [place] [address] [place] [id number] [address] [place] [address] May, Essential hypertension I10 [place] [address] [place] [address] May, Neuroforaminal stenosis of s pine M99.89 [place] [address] [place] [id number] [address] [place] [address] Apr, Allergic reaction, initial e ncounter T78.40XA [place] [address] [place] [id number] [address] [place] [address] Apr, Low back pain, unspecified b ack pain laterality, unspecified chronicity, with sciatica presence unspecified M54.5 ; Acute cystitis with hematuria N30.01 ; Neuroforaminal 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 ; Bilateral acute serous otitis media, recurrence not specified H65.03 ; Mixed hyperlipidemia E78.2 ; Essential hypertension I10 ; Immunization counseling Z71.89 and Encounter for immunization Z23 [facility] [address] [id number] [address] [place] [address] 08 Apr, 2017 Neck pain M54.2 [facility] [address] [id number] [address] [place] [address] Mar, Neuroforaminal stenosis of s pine M99.89 [facility] [address] [id number] [address] [place] [address] Mar, Pharyngitis due to other org anism J02.8 [facility] [address] [id number] [address] [place] [address] Feb, Neuroforaminal stenosis of s pine M99.89 [facility] [address] [id number] [address] [place] [address] 08 Feb, 2017 UTI (urinary tract infection ) N39.0 [facility] [address] [id number] [address] [place] [address] Feb, Recent urinary tract infecti on Z87.440 ; Neuroforaminal 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 ; Neck pain M54.2 ; Chronic pain due to trauma G89.21 and Recurrent UTI N39.0 [facility] [address] [id number] [address] [place] [address] Feb, [facility] [address] [id number] [address] [place] [address] Jan, Neuroforaminal stenosis of s pine M99.89 [facility] [address] [id number] [address] [place] [address] Dec, Neuroforaminal stenosis of s pine M99.89 [facility] [address] [id number] [address] [place] [address] 18 Dec, 2016 Acute seasonal allergic rhin itis due to pollen J30.1 [facility] [address] [id number] [address] [place] [id number] 08 Dec, 2016 [facility] [address] [id number] [address] [place] [phone] 08 Dec, 2016 Acute seasonal allergic rhin itis, unspecified trigger J30.2 ; Allergic conjunctivitis of both eyes H10.13 and Dysfunction of both eustachian tubes H69.83 [facility] [address] [id number] [address] [place] [id number] 07 Dec, 2016 [place] [address] [address] [facility] [id number] [address] [place] [phone] Dec, Nevus D22.9 [facility] [address] [id number] [address] [place] [phone] Nov, Chronic pain due to trauma G 89.21 and Neuroforaminal stenosis of spine M99.89 [facility] [address] [id number] [address] [place] [phone] Nov, Neuroforaminal stenosis of s pine M99.89 ; Essential hypertension I10 ; Mixed hyperlipidemia E78.2 ; Hypokalemia E87.6 ; Neck pain M54.2 and Nevus D22.9 [facility] [address] [id number] [address] [place] [id number] Oct, Neuroforaminal stenosis of s pine M99.89 [facility] [address] [id number] [address] [place] [id number] Sep, Neuroforaminal stenosis of s pine M99.89 [facility] [address] [id number] [address] [place] [phone] Sep, [facility] [address] [id number] [address] [place] [id number] August, [facility] [address] [address] [facility] [id number] [address] [place] [phone] August, Neck pain M54.2 and Neurofor aminal stenosis of spine M99.89 [facility] [address] [id number] [address] [place] [id number] August, Routine gynecological examin ation Z01.419 and Screening breast examination Z12.39 [facility] [address] [id number] [address] [place] [phone] Jul, [facility] [address] [id number] [address] [place] [phone] Jul, [facility] [address] [id number] [address] [place] [id number] Jul, Neuroforaminal stenosis of s pine M99.89 [facility] [address] [id number] [address] [place] [id number] Jul, [facility] [address] [id number] [address] [place] [id number] Jul, Neuroforaminal stenosis of l umbar 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 [facility] [address] [id number] [address] [place] [id number] Jul, [facility] [address] [id number] [address] [place] [id number] Jul, [facility] [address] [id number] [address] [place] [phone] Jun, Neuroforaminal stenosis of s pine M99.89 [facility] [address] [id number] [address] [place] [address] Jun, Uterine leiomyoma, unspecifi ed location D25.9 and Allergic reaction caused by a drug, initial encounter T78.40XA [facility] [address] [id number] [address] [place] [address] Jun, [facility] [address] [id number] [address] [place] [address] May, UTI symptoms R39.9 and Pain of right sacroiliac joint M53.3 [facility] [address] [id number] [address] [place] [address] May, Neuroforaminal stenosis of s pine M99.89 [place] [address] [id number] [address] [place] [address] May, [facility] [address] [facility] [id number] [address] [place] [address] May, Acute mucoid otitis media of left ear H65.112 and Acute non- recurrent maxillary sinusitis J01.00 [place] [address] [id number] [address] [place] [address] May, Acute bacterial conjunctivit is of both eyes H10.33 ; Left arm pain M79.602 and Hypokalemia E87.6 [place] [address] [id number] [address] [place] [address] Apr, [place] [address] [facility] [id number] [address] [place] [address] Apr, Neuroforaminal stenosis of s pine M99.89 ; Neck pain M54.2 ; Chronic pain due to trauma G89.21 ; Mixed hyperlipidemia E78.2 ; Essential hypertension I10 and Hypokalemia E87.6 [place] [address] [facility] [id number] [address] [place] [address] Mar, Oral candidiasis B37.0 ; Nathaniel roforaminal stenosis of spine M99.89 ; Neck pain M54.2 and Chronic pain due to trauma G89.21 [place] [address] [facility] [id number] [address] [place] [address] Feb, [place] [address] [id number] [address] [place] [address] Feb, [place] [address] [facility] [id number] [address] [place] [address] Feb, UTI (urinary tract infection ) N39.0 [place] [address] [facility] [id number] [address] [place] [address] Feb, Dysuria R30.0 [place] [address] [facility] [id number] [address] [place] [address] Feb, Dysuria R30.0 [facility] [address] [id number] [address] [place] [address] Feb, Neuroforaminal stenosis of s pine M99.89 ; Neck pain M54.2 ; Essential hypertension I10 ; Chronic pain due to trauma G89.21 ; Dysuria R30.0 ; Abnormal MRI, shoulder R93.8 and Acute cystitis without hematuria N30.00 [facility] [address] [id number] [address] [place] [address] Jan, [facility] [address] [id number] [address] [place] [address] Jan, [facility] [address] [id number] [address] [place] [address] Jan, [facility] [address] [id number] [address] [place] [address] Jan, Abnormal MRI R93.8 [facility] [address] [id number] [address] [place] [address] 29 Dec, 2015 [facility] [address] [id number] [address] [place] [address] 15 Dec, 2015 Acute pain of left shoulder M25.512 [facility] [address] [id number] [address] [place] [address] 09 Dec, 2015 [facility] [address] [id number] [address] [place] [address] 08 Dec, 2015 [facility] [address] [id number] [address] [place] [address] 07 Dec, 2015 Acute pain of left shoulder M25.512 [facility] [address] [id number] [address] [place] [address] Nov, [facility] [address] [id number] [address] [place] [address] Nov, Neuroforaminal stenosis of s pine M99.89 ; Neck pain M54.2 ; Abnormal mammogram R92.8 ; Essential hypertension I10 and Chronic pain due to trauma G89.21 [facility] [address] [id number] [address] [place] [address] Nov, [facility] [address] [id number] [address] [place] [address] Oct, Acute stress disorder F43.0 [facility] [address] [id number] [address] [place] [address] Oct, [facility] [address] [id number] [address] [place] [address] Oct, [facility] [address] [id number] [address] [place] [address] Oct, [facility] [address] [id number] [address] [place] [address] Sep, [facility] [address] [id number] [address] [place] [address] August, [facility] [address] [id number] [address] [place] [address] Jul, Neuroforaminal stenosis of s pine M99.89 ; Neck pain M54.2 ; Abnormal mammogram R92.8 and Essential hypertension I10 [facility] [address] [id number] [address] [place] [address] Jul, [facility] [address] [id number] [address] [place] [address] Jul, [facility] [address] [id number] [address] [place] [address] Jul, Abnormal mammogram R92.8 [facility] [address] [id number] [address] [place] [address] Jul, [facility] [address] [id number] [address] [place] [address] Jul, UTI (urinary tract infection ) N39.0 [facility] [address] [id number] [address] [place] [address] Jul, Dysuria R30.0 [facility] [address] [id number] [address] [place] [address] Jun, [facility] [address] [facility] [id number] [address] [place] [address] Jun, [facility] [address] [facility] [id number] [address] [place] [address] Jun, Hypokalemia E87.6 and Hematu martina R31.9 [facility] [address] [facility] [id number] [address] [place] [address] Jun, Hypokalemia E87.6 [facility] [address] [facility] [id number] [address] [place] [address] Jun, [facility] [address] [facility] [id number] [address] [place] [address] Jun, Hypokalemia E87.6 [facility] [address] [facility] [id number] [address] [place] [address] Jun, Hypokalemia E87.6 [facility] [address] [facility] [id number] [address] [place] [address] Jun, Neuroforaminal stenosis of s pine M99.89 ; Hypokalemia E87.6 ; Neck pain M54.2 ; Essential hypertension I10 ; Mixed hyperlipidemia E78.2 and Screening breast examination Z12.39 [facility] [address] [facility] [id number] [address] [place] [address] Jun, Dysuria R30.0 ; UTI (urinary tract infection) N39.0 and Hematuria R31.9 [facility] [address] [facility] [id number] [address] [place] [address] May, [facility] [address] [facility] [id number] [address] [place] [address] May, High risk sexual behavior Z7 2.51 ; Hypokalemia E87.6 ; Neuroforaminal stenosis of spine M99.89 ; Neck pain M54.2 ; Essential hypertension I10 ; Mixed hyperlipidemia E78.2 ; STD exposure Z20.2 and Concern about STD in female without diagnosis Z71.1 [facility] [address] [address] 16 May, 2015 Neuroforaminal stenosis of s pine M99.89 ; Neck pain M54.2 ; Hypokalemia E87.6 ; Essential hypertension I10 and Mixed hyperlipidemia E78.2 [facility] [address] [address] 11 May, 2015 [facility] [address] [place] [address] 08 May, 2015 High risk sexual behavior Z7 2.51 ; STD exposure Z20.2 and Concern about STD in female without diagnosis Z71.1 [place] [address] [address] May, [address] [address] Apr, Neuroforaminal stenosis of s pine M99.89 ; Mixed hyperlipidemia E78.2 ; Essential hypertension I10 and Hypokalemia E87.[address] [address] Mar, [address] [address] Mar, Hypokalemia E87.[address] [address] Mar, Neuroforaminal stenosis of s pine M99.89 ; Mixed hyperlipidemia E78.2 ; Neck pain M54.2 ; Essential hypertension I10 ; Abnormal fasting glucose R73.09 ; Hypokalemia E87.6 and Constipation K59.00 [place] [address] [facility] [id number] [address] [place] [address] Feb, Neuroforaminal stenosis of s pine M99.89 ; Mixed hyperlipidemia E78.2 ; Neck pain M54.2 ; Essential hypertension I10 ; Abnormal fasting glucose R73.09 ; Hypokalemia E87.6 and Constipation K59.00 [place] [address] [facility] [id number] [address] [place] [address] Feb, Elevated fasting blood sugar R73.01 [place] [address] [facility] [id number] [address] [place] [address] Feb, Elevated fasting blood sugar R73.01 [place] [address] [facility] [id number] [address] [place] [address] Feb, Hair loss L65.9 [place] [address] [place] [id number] [address] [place] [address] Feb, Sinusitis J32.9 ; Essential hypertension I10 and Hair loss L65.9 [place] [address] [facility] [id number] [address] [place] [address] Jan, [place] [address] [place] [id number] [address] [place] [address] Jan, Essential hypertension I10 ; Neuroforaminal stenosis of spine M99.89 ; Neck pain M54.2 ; Mixed hyperlipidemia E78.2 and Anxiety F41.9 [place] [address] [facility] [id number] [address] [place] [address] Jan, [place] [address] [facility] [id number] [address] [place] [address] Jan, Mixed hyperlipidemia E78.2 ; Essential (primary) hypertension I10 ; Strain of muscle, fascia and tendon at neck level, subsequent encounter S16.1XXD and Tension-type headache, unspecified, not intractable G44.209 [facility] [address] [facility] [id number] [address] [place] [address] Dec, Lumbar back pain 724.2 and N euroforaminal stenosis of spine 724.00 [facility] [address] [id number] [address] [place] [address] Nov, [facility] [address] [id number] [address] [place] [address] Nov, Lumbar back pain 724.2 and N euroforaminal stenosis of spine 724.00 [facility] [address] [id number] [address] [place] [address] Nov, Edema 782.3 ; Lumbar back pa in 724.2 ; Essential hypertension, benign 401.1 ; Hyperlipemia 272.4 ; Neuroforaminal stenosis of spine 724.00 and Post-concussion headache 339.20 [facility] [address] [id number] [address] [place] [address] Nov, [facility] [address] [id number] [address] [place] [address] Nov, [facility] [address] [id number] [address] [place] [address] Oct, Essential hypertension, sheridan gn 401.1 [facility] [address] [id number] [address] [place] [address] Oct, Edema 782.3 ; Lumbar back pa in 724.2 ; Essential hypertension, benign 401.1 ; Hyperlipemia 272.4 ; Neuroforaminal stenosis of spine 724.00 and Post-concussion headache 339.20 [facility] [address] [id number] [address] [place] [address] Oct, [facility] [address] [id number] [address] [place] [address] Oct, Edema 782.3 [facility] [address] [id number] [address] [place] [address] Oct, Lumbar back pain 724.2 [facility] [address] [id number] [address] [place] [address] Oct, Cervicalgia 723.1 ; Lumbar b ack pain 724.2 and High risk medication use V58.69 [facility] [address] [id number] [address] [place] [address] Sep, [facility] [address] [id number] [address] [place] [address] Sep, Lumbar strain 847.2 [facility] [address] [id number] [address] [place] [address] August, Edema 782.3 and Eustachian t ube dysfunction 381.81 [facility] [address] [id number] [address] [place] [address] August, [facility] [address] [facility] [id number] [address] [place] [address] August, Eustachian tube dysfunction 381.81 [facility] [address] [id number] [address] [place] [address] Jul, Otalgia 388.70 and Otitis me jonathon 382.9 [facility] [address] [id number] [address] [place] [address] Jul, [facility] [address] [id number] [address] [place] [address] Jul, [facility] [address] [id number] [address] [place] [address] Jul, [facility] [address] [id number] [address] [place] [address] Jul, [facility] [address] [id number] [address] [place] [address] Jul, [facility] [address] [id number] [address] [place] [address] Jun, [facility] [address] [id number] [address] [place] [address] Jun, [facility] [address] [id number] [address] [place] [address], [place] [address] Jun, [facility] [address] [id number] [address] [place] [address], [place] [address] May, 2014 [facility] [address] [id number] [address] [place] [address], [place] [address] May, 2014 [facility] [address] [id number] [address] [place] [address], [place] [address] May, 2014 [facility] [address] [id number] [address] [place] [address], [place] [address] May, 2014 [facility] [address] [id number] [address] [place] [address], [place] [address] May, 2014 [facility] [address] [id number] [address] [place] [address], [place] [address] May, [facility] [address] [id number] [address] [place] [address], [place] [address] May, [facility] [address] [id number] [address] [place] [address], [place] [address] May, [facility] [address] [id number] [address] [place] [address], [place] [address] May, [facility] [address] [id number] [address] [place] [address], [place] [address] May, [facility] [address] [id number] [address] [place] [address] Apr, [facility] [address] [id number] [address] [place] [address], [place] [address] Apr, [facility] [address] [id number] [address] [place] [address], [place] [address] Apr, [facility] [address] [id number] [address] [place] [address] Apr, [facility] [address] [id number] [address] [place] [address] Apr, [facility] [address] [id number] [address] [place] [address], [place] [address] Apr, [facility] [address] [id number] [address] [place] [address], [place] [address] Apr, [facility] [address] [id number] [address] [place] [address], [place] [address] Apr, [facility] [address] [id number] [address] [place] [address], [place] [address] Apr, [facility] [address] [id number] [address] [place] [address], [place] [address] Apr, [facility] [address] [id number] [address] [place] [address], [place] [address] Apr, [facility] [address] [id number] [address] [place] [address], [place] [address] Apr, [facility] [address] [id number] [address] [place] [address], [place] [address] Apr, [facility] [address] [id number] [address] [place] [address], [place] [address] Apr, [facility] [address] [id number] [address] [place] [address], [place] [address] Apr, [facility] [address] [id number] [address] [place] [address], [place] [address] Mar, [facility] [address] [id number] [address] [place] [address], [place] [address] Mar, [facility] [address] [id number] [address] [place] [address], [place] [address] Mar, [facility] [address] [id number] [address] [place] [address], [place] [address] Mar, [facility] [address] [id number] [address] [place] [address], [place] [address] Feb, [facility] [address] [id number] [address] [place] [address], [place] [address] 07 Feb, 2014 [facility] [address] [id number] [address] [place] [address], [place] [address] Feb, [facility] [address] [id number] [address] [place] [address], [place] [address] Feb, [facility] [address] [id number] [address] [place] [address], [place] [address] Jan, [facility] [address] [id number] [address] [place] [address], [place] [address] Jan, [facility] [address] [id number] [address] [place] [address], [place] [address] Jan, [facility] [address] [id number] [address] [place] [address], [place] [address] Jan, [facility] [address] [id number] [address] [place] [address], [place] [address] Jan, [facility] [address] [id number] [address] [place] [address], [place] [address] Jan, [facility] [address] [id number] [address] [place] [address], [place] [address] Jan, [facility] [address] [id number] [address] [place] [address], [place] [address] Jan, [facility] [address] [id number] [address] [place] [address], [place] [address] 29 Dec, 2013 [facility] [address] [id number] [address] [place] [address], [place] [address] 29 Dec, 2013 [facility] [address] [id number] [address] [place] [address], [place] [address] 04 Dec, 2013 [facility] [address] [id number] [address] [place] [address], [place] [address] 04 Dec, 2013 [facility] [address] [id number] [address] [place] [address], [place] [address] 14 Oct, 2013 [facility] [address] [id number] [facility] [place] [address] 14 Oct, 2013 [facility] [address] [id number] [facility] [address] Oct, 2013 [facility] [address] [id number] [facility] [place] [address] Oct, 2013 [facility] [address] [id number] [address] [place] [address], [place] [address] Oct, 2013 [facility] [address] [id number] [address] [place] [address], [place] [address] Oct, 2013 [facility] [address] [id number] [address] [place] [address], [place] [address] Oct, 2013 [facility] [address] [id number] [address] [place] [address], [place] [address] Oct, [facility] [address] [id number] [address] [place] [address], [place] [address] Sep, [facility] [address] [id number] [address] [place] [address], [place] [address] Sep, [facility] [address] [id number] [address] [place] [address], [place] [address] Sep, [facility] [address] [id number] [address] [place] [address], [place] [address] Sep, [facility] [address] [id number] [address] [place] [address], [place] [address] Sep, [facility] [address] [id number] [address] [place] [address], [place] [address] Sep, [facility] [address] [id number] [address] [place] [address], [place] [address] Sep, [facility] [address] [id number] [address] [place] [address], [place] [address] Sep, [facility] [address] [id number] [address] [place] [address], [place] [address] Sep, [facility] [address] [id number] [address] [place] [address], [place] [address] Sep, [facility] [address] [id number] [address] [place] [address], [place] [address] August, [facility] [address] [id number] [address] [place] [address], [place] [address] August, [facility] [address] [id number] [address] [place] [address], [place] [address] August, [facility] [address] [id number] [address] [place] [address], [place] [address] August, [facility] [address] [id number] [address] [place] [address], [place] [address] August, [facility] [address] [id number] [address] [place] [address], [place] [address] August, [facility] [address] [id number] [address] [place] [address], [place] [address] August, [facility] [address] [id number] [address] [place] [address], [place] [address] August, [facility] [address] [id number] [address] [place] [address], [place] [address] August, [facility] [address] [id number] [address] [place] [address], [place] [address] August, [facility] [address] [id number] [address] [place] [address], [place] [address] August, [facility] [address] [id number] [address] [place] [address], [place] [address] August, [facility] [address] [id number] [address] [place] [address], [place] [address] Jul, [facility] [address] [id number] [address] [place] [address], [place] [address] Jul, [facility] [address] [id number] [facility] [address] Jul, [facility] [address] [id number] [facility] [place] [address] Jul, [facility] [address] [address] [id number] [facility] [address] Jul, [facility] [address] [id number] [address] [place] [address], [place] [address] Jul, [facility] [address] [id number] [address] [place] [address], [place] [address] Jun, [facility] [address] [id number] [address] [place] [address], [place] [address] Jun, [facility] [address] [id number] [address] [place] [address], [place] [address] May, [facility] [address] [id number] [address] [place] [address], [place] [address] May, [facility] [address] [id number] [address] [place] [address], [place] [address] Apr, [facility] [address] [id number] [address] [place] [address], [place] [address] Apr, [facility] [address] [id number] [address] [place] [address], [place] [address] Apr, [facility] [address] [id number] [address] [place] [address], [place] [address] Apr, [facility] [address] [id number] [address] [place] [address], [place] [address] Apr, [facility] [address] [id number] [address] [place] [address], [place] [address] Apr, [facility] [address] [id number] [address] [place] [address], [place] [address] Apr, [facility] [address] [id number] [address] [place] [address], [place] [address] Apr, [facility] [address] [id number] [address] [place] [address], [place] [address] Apr, [facility] [address] [id number] [address] [place] [address], [place] [address] Apr, [facility] [address] [id number] [address] [place] [address], [place] [address] Apr, [facility] [address] [id number] [address] [place] [address], [place] [address] Apr, [facility] [address] [id number] [address] [place] [address], [place] [address] Apr, [facility] [address] [id number] [address] [place] [address], [place] [address] Mar, [facility] [address] [id number] [address] [place] [address], [place] [address] Mar, [facility] [address] [id number] [address] [place] [address], [place] [address] Mar, [facility] [address] [id number] [address] [place] [address], [place] [address] Mar, [facility] [address] [id number] [address] [place] [address], [place] [address] Feb, [facility] [address] [id number] [address] [place] [address], [place] [address] Feb, [facility] [address] [id number] [address] [place] [address], [place] [address] Feb, [facility] [address] [id number] [address] [place] [address], [place] [address] Feb, [facility] [address] [id number] [address] [place] [address], [place] [address] Jan, [facility] [address] [id number] [address] [place] [address], [place] [address] Jan, [facility] [address] [id number] [address] [place] [address], [place] [address] Jan, [facility] [address] [id number] [address] [place] [address], [place] [address] Jan, [facility] [address] [id number] [address] [place] [address], [place] [address] Jan, [facility] [address] [id number] [address] [place] [address], [place] [address] Jan, [facility] [address] [id number] [address] [place] [address], [place] [address] Jan, [facility] [address] [id number] [address] [place] [address], [place] [address] Jan, [facility] [address] [id number] [address] [place] [address], [place] [address] Jan, [facility] [address] [id number] [address] [place] [address], [place] [address] 26 Dec, 2012 [facility] [address] [id number] [address] [place] [address], [place] [address] 16 Dec, 2012 [facility] [address] [id number] [address] [place] [address], [place] [address] 16 Dec, 2012 [facility] [address] [id number] [address] [place] [address], [place] [address] 13 Dec, 2012 [facility] [address] [id number] [address] [place] [address], [place] [address] 17 Nov, 2012 [facility] [address] [id number] [address] [place] [address], [place] [address] 17 Nov, 2012 [facility] [address] [id number] [address] [place] [address], [place] [address] 14 Nov, 2012 [facility] [address] [id number] [address] [place] [address], [place] [address] 05 Nov, 2012 [facility] [address] [id number] [address] [place] [address], [place] [address] Oct, [facility] [address] [id number] [address] [place] [address], [place] [address] Sep, [facility] [address] [id number] [address] [place] [address], [place] [address] August, [facility] [address] [id number] [address] [place] [address], [place] [address] August, [facility] [address] [id number] [address] [place] [address], [place] [address] August, [facility] [address] [id number] [address] [place] [address], [place] [address] August, [facility] [address] [id number] [address] [place] [address], [place] [address] August, [facility] [address] [id number] [address] [place] [address], [place] [address] August, [facility] [address] [id number] [address] [place] [address], [place] [address] August, [facility] [address] [id number] [address] [place] [address], [place] [address] August, [facility] [address] [id number] [address] [place] [address], [place] [address] August, [facility] [address] [id number] [address] [place] [address], [place] [address] August, [facility] [address] [id number] [address] [place] [address], [place] [address] August, [facility] [address] [id number] [address] [place] [address], [place] [address] August, [facility] [address] [id number] [address] [place] [address], [place] [address] Jul, [facility] [address] [id number] [address] [place] [address], [place] [address] Jul, [facility] [address] [id number] [address] [place] [address] 18 Jul, 2012 [facility] [address] [id number] [address] [place] [address], [place] [address] 15 Jul, 2012 [facility] [address] [id number] [address] [place] [address], [place] [address] Jul, [facility] [address] [id number] [address] [place] [address], [place] [address] Jul, [facility] [address] [id number] [address] [place] [address], [place] [address] Jul, [facility] [address] [id number] [address] [place] [address], [place] [address] Jul, [facility] [address] [id number] [address] [place] [address], [place] [address] Jul, [facility] [address] [id number] [address] [place] [address], [place] [address] Jul, [facility] [address] [id number] [address] [place] [address], [place] [address] Jul, [facility] [address] [id number] [address] [place] [address], [place] [address] Jun, [facility] [address] [id number] [address] [place] [address], [place] [address] Jun, [facility] [address] [id number] [address] [place] [address], [place] [address] Jun, [facility] [address] [id number] [address] [place] [address], [place] [address] Jun, [facility] [address] [id number] [address] [place] [address], [place] [address] May, [facility] [address] [id number] [address] [place] [address], [place] [address] 14 May, 2012 [facility] [address] [id number] [address] [place] [address], [place] [address] 05 May, 2012 [facility] [address] [id number] [address] [place] [address], [place] [address] May, [facility] [address] [id number] [address] [place] [address], [place] [address] May, [facility] [address] [id number] [address] [place] [address], [place] [address] May, [facility] [address] [id number] [address] [place] [address], [place] [address] Apr, [facility] [address] [id number] [address] [place] [address], [place] [address] Apr, [facility] [address] [id number] [address] [place] [address], [place] [address] Apr, [facility] [address] [id number] [address] [place] [address], [place] [address] Apr, [facility] [address] [id number] [address] [place] [address], [place] [address] 15 Mar, 2012 [facility] [address] [id number] [address] [place] [address], [place] [address] Mar, [facility] [address] [id number] [address] [place] [address], [place] [address] 14 Mar, 2012 [facility] [address] [id number] [address] [place] [address], [place] [address] 14 Mar, 2012 [facility] [address] [id number] [address] [place] [address], [place] [address] 14 Mar, 2012 [facility] [address] [id number] [address] [place] [address], [place] [address] 06 Mar, 2012 [facility] [address] [id number] [address] [place] [address], [place] [address] 06 Mar, 2012 [facility] [address] [id number] [address] [place] [address], [place] [address] Feb, [facility] [address] [id number] [address] [place] [address] Feb, [facility] [address] [id number] [address] [place] [address], [place] [address] Feb, [facility] [address] [id number] [address] [place] [address], [place] [address] Feb, [facility] [address] [id number] [address] [place] [address], [place] [address] Jan, [facility] [address] [id number] [address] [place] [address], [place] [address] Jan, [facility] [address] [id number] [address] [place] [address], [place] [address] Jan, [facility] [address] [id number] [address] [place] [address], [place] [address] Jan, [facility] [address] [id number] [address] [place] [address], [place] [address] Jan, [facility] [address] [id number] [address] [place] [address], [place] [address] Jan, [facility] [address] [id number] [address] [place] [address], [place] [address] Dec, [facility] [address] [id number] [address] [place] [address], [place] [address] Dec, [facility] [address] [id number] [address] [place] [address], [place] [address] Nov, [facility] [address] [id number] [address] [place] [address], [place] [address] Sep, [facility] [address] [id number] [address] [place] [address], [place] [address] August, [facility] [address] [id number] [address] [place] [address], [place] [address] August, [facility] [address] [id number] [address] [place] [address], [place] [address] August, [facility] [address] [id number] [address] [place] [address], [place] [address] 10 Aug, 2011 [facility] [address] [id number] [address] [place] [address], [place] [address] August, [facility] [address] [id number] [address] [place] [address], [place] [address] Jun, [facility] [address] [id number] [address] [place] [address], [place] [address] Jun, [facility] [address] [id number] [address] [place] [address], [place] [address] Apr, [facility] [address] [id number] [address] [place] [address], [place] [address] Apr, [facility] [address] [id number] [address] [place] [address], [place] [address] Mar, [facility] [address] [id number] [address] [place] [address], [place] [address] Feb, [facility] [address] [id number] [address] [place] [address], [place] [address] Feb, [facility] [address] [id number] [address] [place] [address], [place] [address] Feb, [facility] [address] [id number] [address] [place] [address], [place] [address] 17 Jan, 2011 [facility] [address] [id number] [address] [place] [address], [place] [address] 15 Jan, 2011 [facility] [address] [id number] [address] [place] [address], [place] [address] 15 Jan, 2011 [facility] [address] [id number] [address] [place] [address], [place] [address] 14 Jan, 2011 [facility] [address] [id number] [address] [place] [address], [place] [address] 15 May, 2010 [facility] [address] [id number] [address] [place] [address], [place] [address] Mar, [facility] [address] [id number] [address] [place] [address] Oct, [facility] [address] [id number] [address] [place] [address] Sep, [facility] [address] [id number] [address] [place] [address] Mar, [facility] [address] [id number] [address] [place] [address] Jan, [facility] [address] [id number] [address] [place] [address] Jan, [facility] [address] [id number] [address] [place] [address] May, IMMUNIZATIONS No Known Immunizations SOCIAL HISTORY [...] squamous atypia (no definite dyplasia). Performed at [facility] Dr. Joy. Medical History Acute [...]
--- OUTSIDE RECORDS SUMMARY | 2019-11-23 05:38 | XMS REPORT ---
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 Active 188092348571 Problem Essential hypertension I10 Active 43431314 Problem Mixed hyperlipidemia E78.2 Active 32308734 Problem Other chronic pain G89.29 Active 8 4516012 Problem Neck pain M54.2 Active 96930136 Problem Slow transit constipation K59.01 Acti ve 39037142 Problem Anxiety F41.9 Active 01262530 Problem Hypokalemia E87.6 Active 85307841 Problem Chronic pain due to trauma G89.21 Act juanis 542294312 Problem Seasonal allergies J30.2 Active 4 98548069 Problem Rhinosinusitis J32.9 Active 23800 4004 ALLERGIES No Information ENCOUNTERS Encounter Location Date Diagnosis [facility] [address] [facility] [id number] [address] [place] [phone] Jan, [facility] [address] [facility] [id number] [address] [place] [address] Oct, Neuroforaminal stenosis of s pine M99.89 [facility] [address] [facility] [id number] [address] [place] [id number] Oct, [facility] [address] [facility] [id number] [address] [place] [address] Oct, Right flank pain R10.9 ; Low er abdominal pain R10.30 ; Slow transit constipation K59.01 and 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 [facility] [address] [id number] [address] [place] [address] Oct, Neuroforaminal stenosis of s pine M99.89 [facility] [address] [id number] [address] [place] [address] Oct, Neuroforaminal stenosis of s pine M99.89 ; Screening breast examination Z12.39 and Other chronic pain G89.29 [facility] [address] [id number] [address] [place] [address] Sep, [place] [address] [facility] [id number] [address] [place] [phone] Sep, Neuroforaminal stenosis of s pine M99.89 [facility] [address] [facility] [id number] [address] [place] [address] Sep, Encounter for laboratory luisa ting for COVID-19 virus V73.89 [place] [address] [facility] [id number] [address] [place] [address] August, Neuroforaminal stenosis of s pine M99.89 [place] [address] [facility] [id number] [address] [place] [address] August, Acute bacterial conjunctivit is of right eye H10.31 [facility] [address] [facility] [id number] [address] [place] [address] August, Low back pain M54.5 ; Other chronic pain G89.29 and Dysuria R30.0 [facility] [address] [id number] [address] [place] [address] August, [place] [address] [id number] [address] [place] [address] Jul, Neuroforaminal stenosis of s pine M99.89 [place] [address] [facility] [id number] [address] [place] [address] Jul, Allergic conjunctivitis of b oth eyes H10.13 [place] [address] [id number] [address] [place] [address] 27 Jun, 2019 Hypokalemia E87.6 [place] [address] [facility] [id number] [address] [place] [phone] 27 Jun, 2019 [facility] [address] [facility] [id number] [address] [place] [address] Jun, Neuroforaminal stenosis of s pine M99.89 [place] [address] [facility] [id number] [address] [place] [id number] 19 Jun, 2019 Lateral epicondylitis, left elbow M77.12 and Medial epicondylitis, left elbow M77.02 [place] [address] [facility] [id number] [place] [id number] 16 Jun, 2019 Foraminal stenosis of lumbar region M48.061 ; Segmental dysfunction of thoracic region M99.02 ; Segmental dysfunction of lumbar region M99.03 and Segmental dysfunction of sacral region M99.04 [place] [address] [place] [id number] [address] [place] [address] 28 May, 2019 Left elbow pain M25.522 [place] [address] [place] [id number] [address] [place] [address] May, [place] [address] [place] [id number] [address] [place] [address] May, Left elbow pain M25.522 [place] [address] [place] [id number] [address] [place] [address] May, Neuroforaminal stenosis of s pine M99.89 [facility] [address] [facility] [id number] [address] [place] [address] 26 May, 2019 Rhinosinusitis J32.9 ; Left elbow pain M25.522 and Neck pain M54.2 [place] [address] [facility] [id number] [address] [place] [address] 14 May, 2019 Lateral epicondylitis of lef t elbow M77.12 [facility] [address] [id number] [address] [place] [address] Apr, Neuroforaminal stenosis of s jose M99.89 [facility] [address] [id number] [address] [place] [address] Apr, Essential hypertension I10 a nd Mixed hyperlipidemia E78.2 [facility] [address] [id number] [address] [place] [address] Mar, Neuroforaminal stenosis of s jose M99.89 [facility] [address] [id number] [address] [place] [address] Mar, Epicondylitis, lateral, left M77.12 [facility] [address] [id number] [address] [place] [address] Mar, [facility] [address] [id number] [address] [place] [address] Mar, Neuroforaminal stenosis of s jose M99.89 [facility] [address] [id number] [address] [place] [address] Feb, Neuroforaminal stenosis of ayla garcia M99.89 ; Essential hypertension I10 ; Mixed hyperlipidemia E78.2 ; Encounter for immunization Z23 and Seasonal allergies J30.2 [facility] [address] [id number] [address] [place] [address] Jan, Neuroforaminal stenosis of s jose M99.89 [facility] [address] [id number] [address] [place] [address] Dec, Neuroforaminal stenosis of s jose M99.89 [facility] [address] [id number] [address] [place] [address] Dec, Neuroforaminal stenosis of s pine M99.89 [facility] [address] [id number] [address] [place] [address] Nov, [facility] [address] [id number] [address] [place] [address] Nov, Neuroforaminal stenosis of s pine M99.89 [facility] [address] [id number] [address] [place] [address] Nov, Acute non-recurrent maxillar y sinusitis J01.00 [facility] [address] [id number] [address] [place] [address] Oct, Hypokalemia E87.6 [facility] [address] [id number] [address] [place] [address] Oct, Wasp sting, undetermined int ent, initial encounter T63.464A and Cellulitis of left lower extremity L03.116 [place] [address] [id number] [address] [place] [address] Oct, Neuroforaminal stenosis of s pine M99.89 [place] [address] [id number] [address] [place] [address] Sep, [place] [address] [id number] [address] [place] [address] Sep, [place] [address] [id number] [address] [place] [address] Sep, Routine screening for STI (s exually transmitted infection) Z11.3 [place] [address] [id number] [address] [place] [address] Sep, Routine screening for STI (s exually transmitted infection) Z11.3 ; Well woman exam with routine gynecological exam Z01.419 and Breast cancer screening Z12.39 [facility] [address] [id number] [address] [place] [address] Sep, Neuroforaminal stenosis of s pine M99.89 [facility] [address] [id number] [address] [place] [address] August, Neuroforaminal stenosis of s pine M99.89 [place] [address] [id number] [address] [place] [address] August, Neuroforaminal stenosis of s pine M99.89 ; Chronic pain due to trauma G89.21 and Mixed hyperlipidemia E78.2 [facility] [address] [id number] [address] [place] [address] Jul, Viral upper respiratory illn ess J06.9 and Acute non-recurrent frontal sinusitis J01.10 [facility] [address] [id number] [address] [place] [address] Jul, Congestion of nasal sinus R0 9.81 [facility] [address] [id number] [address] [place] [address] Jul, Neuroforaminal stenosis of s pine M99.89 and Essential hypertension I10 [facility] [address] [id number] [address] [place] [address] May, Neuroforaminal stenosis of s pine M99.89 [facility] [address] [id number] [address] [place] [phone] May, [facility] [address] [id number] [address] [place] [address] May, Congestion of nasal sinus R0 9.81 [facility] [address] [id number] [address] [place] [address] May, [facility] [address] [id number] [address] [place] [address] Apr, Neuroforaminal stenosis of s pine M99.89 [facility] [address] [id number] [address] [place] [address] Apr, Neuroforaminal stenosis of s pine M99.89 and Chronic pain due to trauma G89.21 [facility] [address] [facility] [id number] [address] [place] [address] Mar, UTI (urinary tract infection ) N39.0 [facility] [address] [facility] [id number] [address] [place] [address] Mar, Vertigo R42 [facility] [address] [id number] [address] [place] [address] Mar, Neuroforaminal stenosis of s jose M99.89 [facility] [address] [facility] [id number] [address] [place] [address] Feb, Extensor tendon disruption M 67.89 [facility] [address] [facility] [id number] [address] [place] [address] Feb, Neuroforaminal stenosis of s jose M99.89 and High risk medication use Z79.899 [facility] [address] [id number] [address] [place] [address] Jan, Hypokalemia E87.6 [facility] [address] [facility] [id number] [address] [place] [address] Jan, Flank pain R10.9 and Acute r ight-sided low back pain without sciatica M54.5 [facility] [address] [facility] [id number] [address] [place] [address] Jan, Hypokalemia E87.6 [facility] [address] [facility] [id number] [address] [place] [address] Jan, [facility] [address] [facility] [id number] [address] [place] [address] Jan, URI, acute J06.9 [facility] [address] [facility] [id number] [address] [place] [address] 05 Jan, 2018 Neuroforaminal stenosis of s jose M99.89 [facility] [address] [facility] [id number] [address] [place] [address] 13 Dec, 2017 Lateral epicondylitis, right elbow M77.11 [facility] [address] [facility] [id number] [address] [place] [address] 11 Dec, 2017 Allergic rhinitis due to monica rosalina, unspecified seasonality J30.1 and Allergic conjunctivitis of both eyes H10.13 [facility] [address] [place] [id number] [address] [place] [address] 10 Dec, 2017 Neuroforaminal stenosis of s pine M99.89 [place] [address] [place] [id number] [address] [place] [address] 06 Dec, 2017 Mixed hyperlipidemia E78.2 [place] [address] [place] [id number] [address] [place] [phone] 05 Dec, 2017 Abnormal glucose R73.09 ; Ab normal renal ultrasound R93.429 ; Dysuria R30.0 ; Cystitis without hematuria N30.90 ; Hypokalemia E87.6 ; Mixed hyperlipidemia E78.2 and Hematuria, unspecified type R31.9 [place] [address] [place] [id number] [address] [place] [address] Nov, Hypokalemia E87.6 ; Mixed hy perlipidemia E78.2 and Hematuria, unspecified type R31.9 [place] [id number] [place] [address] Nov, [place] [address] [place] [id number] [address] [place] [address] Nov, Hypokalemia E87.6 [place] [address] [place] [id number] [address] [place] [address] Nov, [place] [address] [place] [id number] [address] [place] [address] Nov, Abnormal renal ultrasound R9 3.429 [place] [address] [place] [id number] [address] [place] [address] Nov, Abnormal renal ultrasound R9 3.429 [place] [address] [place] [id number] [address] [place] [address] Nov, Hematuria, unspecified type R31.9 and 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 [place] [address] [place] [id number] [address] [place] [address] Nov, Dysuria R30.0 [place] [address] [id number] [address] [place] [address] Oct, Lateral epicondylitis, right elbow M77.11 [place] [address] [id number] [address] [place] [address] Oct, Neuroforaminal stenosis of s pine M99.89 ; Visit for TB skin test Z11.1 and Essential hypertension I10 [place] [address] [id number] [address] [place] [address] Oct, [place] [address] [id number] [address] [place] [address] Oct, Neuroforaminal stenosis of s pine M99.89 [place] [address] [id number] [address] [place] [address] Oct, Visit for TB skin test Z11.1 [place] [address] [id number] [address] [place] [address] 05 Oct, 2017 Cystitis without hematuria N 30.90 [place] [address] [id number] [address] [place] [address] Sep, Screening breast examination Z12.39 [place] [address] [id number] [address] [place] [address] Sep, Dysuria R30.0 and Cystitis w ithout hematuria N30.90 [place] [address] [id number] [address] [place] [address] 14 Sep, 2017 Essential hypertension I10 a nd 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 [place] [address] [id number] [address] [place] [address] Sep, Abnormal glucose R73.09 [place] [address] [id number] [address] [place] [address] August, Lateral epicondylitis, right elbow M77.11 [place] [address] [id number] [address] [place] [address] August, Screen for STD (sexually tra nsmitted disease) Z11.3 [place] [address] [id number] [address] [place] [address] August, Neuroforaminal stenosis of ayla garcia M99.89 ; Mixed hyperlipidemia E78.2 ; Elevated fasting glucose R73.01 ; Screening mammogram, encounter for Z12.31 and Encounter for well woman exam without gynecological exam Z00.00 [place] [address] [id number] [address] [place] [address] August, Neuroforaminal stenosis of s jose M99.89 [place] [address] [id number] [address] [place] [address] August, Essential hypertension I10 ; Hypokalemia E87.6 and Mixed hyperlipidemia E78.2 [place] [address] [id number] [address] [place] [address] Jul, [place] [address] [id number] [address] [place] [address] Jul, Neuroforaminal stenosis of ayla garcia M99.89 [place] [address] [id number] [address] [place] [address] Jul, Lateral epicondylitis, right elbow M77.11 [place] [address] [id number] [address] [place] [address] Jul, [place] [address] [id number] [address] [place] [address] Jun, High ankle sprain of right l ower extremity, initial encounter S93.431A [place] [address] [id number] [address] [place] [address] Jun, Essential hypertension I10 [place] [address] [id number] [address] [place] [address] Jun, [place] [address] [facility] [id number] [address] [place] [address] Jun, [place] [address] [address] Jun, Neuroforaminal stenosis of s pine M99.89 [place] [address] [address] Jun, Pain of right upper extremit y M79.601 and Essential hypertension I10 [place] [address] [address] Jun, [place] [address] [address] Jun, Dysuria R30.0 ; Acute cystit is with hematuria N30.01 and Screen for STD (sexually transmitted disease) Z11.3 [place] [address] [address] May, Chronic pain due to trauma G 89.21 [place] [address] [address] May, Essential hypertension I10 [place] [address] [address] May, Neuroforaminal stenosis of s pine M99.89 [place] [address] [address] Apr, Allergic reaction, initial e ncounter T78.40XA [place] [address] [address] Apr, Low back pain, unspecified b ack pain laterality, unspecified chronicity, with sciatica presence unspecified M54.5 ; Acute cystitis with hematuria N30.01 ; 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 ; Bilateral acute serous otitis media, recurrence not specified H65.03 ; Mixed hyperlipidemia E78.2 ; Essential hypertension I10 ; Immunization counseling Z71.89 and Encounter for immunization Z23 [place] [address] [address] Apr, Neck pain M54.2 [facility] [address] [id number] [address] [place] [address] Mar, Neuroforaminal stenosis of s pine M99.89 [facility] [address] [id number] [address] [place] [address] Mar, Pharyngitis due to other org anism J02.8 [facility] [address] [id number] [address] [place] [address] Feb, Neuroforaminal stenosis of s pine M99.89 [facility] [address] [id number] [address] [place] [address] Feb, UTI (urinary tract infection ) N39.0 [facility] [address] [id number] [address] [place] [address] Feb, Recent urinary tract infecti on Z87.440 ; 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 ; Neck pain M54.2 ; Chronic pain due to trauma G89.21 and Recurrent UTI N39.0 [facility] [address] [id number] [address] [place] [address] Feb, [facility] [address] [id number] [address] [place] [address] Jan, Neuroforaminal stenosis of s pine M99.89 [facility] [address] [id number] [address] [place] [address] Dec, Neuroforaminal stenosis of s pine M99.89 [facility] [address] [id number] [address] [place] [address] 18 Dec, 2016 Acute seasonal allergic rhin itis due to pollen J30.1 [facility] [address] [id number] [address] [place] [id number] 08 Dec, 2016 [facility] [address] [id number] [address] [place] [address] Dec, Acute seasonal allergic rhin itis, unspecified trigger J30.2 ; Allergic conjunctivitis of both eyes H10.13 and Dysfunction of both eustachian tubes H69.83 [place] [address] [facility] [id number] [address] [place] [address] 07 Dec, 2016 [place] [address] [facility] [id number] [address] [place] [address] Dec, Nevus D22.9 [place] [address] [facility] [id number] [address] [place] [address] Nov, Chronic pain due to trauma G 89.21 and 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 [place] [address] [facility] [id number] [place] [address] Nov, Neuroforaminal stenosis of s pine M99.89 ; Essential hypertension I10 ; Mixed hyperlipidemia E78.2 ; Hypokalemia E87.6 ; Neck pain M54.2 and Nevus D22.9 [facility] [address] [id number] [address] [place] [address] Oct, Neuroforaminal stenosis of s pine M99.89 [place] [address] [facility] [id number] [address] [place] [address] Sep, Neuroforaminal stenosis of s pine M99.89 [place] [address] [facility] [id number] [address] [place] [address] Sep, [place] [address] [address] [facility] [id number] [address] [place] [id number] August, [place] [address] [address] [facility] [id number] [address] [place] [phone] August, Neck pain M54.2 and Neurofor aminal stenosis of spine M99.89 [place] [address] [address] [facility] [id number] [address] [place] [phone] August, Routine gynecological examin ation Z01.419 and Screening breast examination Z12.39 [place] [address] [id number] [address] [place] [phone] Jul, [facility] [address] [id number] [address] [place] [phone] Jul, [facility] [address] [id number] [address] [place] [phone] Jul, Neuroforaminal stenosis of s pine M99.89 [facility] [address] [id number] [address] [place] [phone] Jul, [facility] [address] [id number] [address] [place] [phone] Jul, Neuroforaminal stenosis of l umbar 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 [facility] [address] [id number] [address] [place] [phone] Jul, [facility] [address] [id number] [address] [place] [phone] Jul, [facility] [address] [id number] [address] [place] [phone] Jun, Neuroforaminal stenosis of s pine M99.89 [facility] [address] [id number] [address] [place] [phone] Jun, Uterine leiomyoma, unspecifi ed location D25.9 and Allergic reaction caused by a drug, initial encounter T78.40XA [facility] [address] [id number] [address] [place] [phone] Jun, [facility] [address] [id number] [address] [place] [phone] May, UTI symptoms R39.9 and Pain of right sacroiliac joint M53.3 [facility] [address] [id number] [address] [place] [id number] May, Neuroforaminal stenosis of s pine M99.89 [facility] [address] [id number] [address] [place] [id number] May, [facility] [address] [facility] [id number] [address] [place] [address] May, Acute mucoid otitis media of left ear H65.112 and Acute non- recurrent maxillary sinusitis J01.00 [place] [address] [facility] [id number] [address] [place] [address] May, Acute bacterial conjunctivit is of both eyes H10.33 ; Left arm pain M79.602 and Hypokalemia E87.6 [place] [address] [id number] [address] [place] [address] Apr, [place] [address] [address] [facility] [id number] [address] [place] [address] Apr, Neuroforaminal stenosis of s pine M99.89 ; Neck pain M54.2 ; Chronic pain due to trauma G89.21 ; Mixed hyperlipidemia E78.2 ; Essential hypertension I10 and Hypokalemia E87.6 [place] [address] [id number] [address] [place] [address] Mar, Oral candidiasis B37.0 ; Nathaniel roforaminal stenosis of spine M99.89 ; Neck pain M54.2 and Chronic pain due to trauma G89.21 [place] [address] [facility] [id number] [address] [place] [address] Feb, [place] [address] [facility] [id number] [address] [place] [address] Feb, [place] [address] [id number] [address] [place] [address] Feb, UTI (urinary tract infection ) N39.0 [place] [address] [facility] [id number] [address] [place] [id number] Feb, Dysuria R30.0 [place] [address] [facility] [id number] [address] [place] [id number] Feb, Dysuria R30.0 [place] [address] [id number] [address] [place] [address] Feb, Neuroforaminal stenosis of s pine M99.89 ; Neck pain M54.2 ; Essential hypertension I10 ; Chronic pain due to trauma G89.21 ; Dysuria R30.0 ; Abnormal MRI, shoulder R93.8 and Acute cystitis without hematuria N30.00 [facility] [address] [id number] [address] [place] [address] Jan, [facility] [address] [id number] [address] [place] [address] Jan, [facility] [address] [id number] [address] [place] [id number] Jan, [facility] [address] [id number] [address] [place] [id number] Jan, Abnormal MRI R93.8 [facility] [address] [id number] [address] [place] [phone] 29 Dec, 2015 [facility] [address] [id number] [address] [place] [id number] 15 Dec, 2015 Acute pain of left shoulder M25.512 [facility] [address] [id number] [address] [place] [id number] 09 Dec, 2015 [facility] [address] [id number] [address] [place] [id number] 08 Dec, 2015 [facility] [address] [id number] [address] [place] [id number] 07 Dec, 2015 Acute pain of left shoulder M25.512 [facility] [address] [id number] [address] [place] [address] Nov, [facility] [address] [facility] [id number] [address] [place] [id number] 16 Nov, 2015 Neuroforaminal stenosis of s pine M99.89 ; Neck pain M54.2 ; Abnormal mammogram R92.8 ; Essential hypertension I10 and Chronic pain due to trauma G89.21 [facility] [address] [id number] [address] [place] [address] Nov, [facility] [address] [id number] [address] [place] [id number] Oct, Acute stress disorder F43.0 [facility] [address] [id number] [address] [place] [id number] Oct, [facility] [address] [id number] [address] [place] [id number] Oct, [facility] [address] [id number] [address] [place] [id number] Oct, [facility] [address] [id number] [address] [place] [phone] Sep, [facility] [address] [id number] [address] [place] [address] August, [facility] [address] [id number] [address] [place] [address] Jul, Neuroforaminal stenosis of s pine M99.89 ; Neck pain M54.2 ; Abnormal mammogram R92.8 and Essential hypertension I10 [facility] [address] [id number] [address] [place] [address] Jul, [facility] [address] [id number] [address] [place] [id number] Jul, [facility] [address] [id number] [address] [place] [address] Jul, Abnormal mammogram R92.8 [facility] [address] [id number] [address] [place] [id number] Jul, [facility] [address] [id number] [address] [place] [address] Jul, UTI (urinary tract infection ) N39.0 [facility] [address] [id number] [address] [place] [phone] Jul, Dysuria R30.0 [facility] [address] [facility] [id number] [address] [place] [address] Jun, [facility] [address] [facility] [id number] [address] [place] [address] Jun, [facility] [address] [facility] [id number] [address] [place] [id number] Jun, Hypokalemia E87.6 and Hematu martina R31.9 [facility] [address] [facility] [id number] [address] [place] [phone] Jun, Hypokalemia E87.6 [place] [address] [facility] [id number] [address] [place] [address] Jun, [place] [address] [place] [id number] [address] [place] [id number] Jun, Hypokalemia E87.6 [place] [address] [facility] [id number] [address] [place] [address] Jun, Hypokalemia E87.6 [place] [address] [facility] [id number] [address] [place] [address] Jun, Neuroforaminal stenosis of s pine M99.89 ; Hypokalemia E87.6 ; Neck pain M54.2 ; Essential hypertension I10 ; Mixed hyperlipidemia E78.2 and Screening breast examination Z12.39 [place] [address] [facility] [id number] [address] [place] [phone] Jun, Dysuria R30.0 ; UTI (urinary tract infection) N39.0 and Hematuria R31.9 [place] [address] [facility] [id number] [address] [place] [address] May, [place] [address] [facility] [id number] [address] [place] [address] May, High risk sexual behavior Z7 2.51 ; Hypokalemia E87.6 ; Neuroforaminal stenosis of spine M99.89 ; Neck pain M54.2 ; Essential hypertension I10 ; Mixed hyperlipidemia E78.2 ; STD exposure Z20.2 and Concern about STD in female without diagnosis Z71.1 [facility] [address] [address] 16 May, 2015 Neuroforaminal stenosis of s pine M99.89 ; Neck pain M54.2 ; Hypokalemia E87.6 ; Essential hypertension I10 and Mixed hyperlipidemia E78.2 [facility] [address] [id number] 11 May, 2015 [facility] [address] [place] [id number] [place] [address] 08 May, 2015 High risk sexual behavior Z7 2.51 ; STD exposure Z20.2 and Concern about STD in female without diagnosis Z71.1 [place] [address] [address] May, [place] [address] [address] Apr, Neuroforaminal stenosis of s pine M99.89 ; Mixed hyperlipidemia E78.2 ; Essential hypertension I10 and Hypokalemia E87.6 [place] [address] [address] Mar, [place] [address] [address] Mar, Hypokalemia E87.6 [place] [address] [place] [id number] [address] [place] [address] Mar, Neuroforaminal stenosis of s pine M99.89 ; Mixed hyperlipidemia E78.2 ; Neck pain M54.2 ; Essential hypertension I10 ; Abnormal fasting glucose R73.09 ; Hypokalemia E87.6 and Constipation K59.00 [place] [address] [address] Feb, Neuroforaminal stenosis of s 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 ; Mixed hyperlipidemia E78.2 ; Neck pain M54.2 ; Essential hypertension I10 ; Abnormal fasting glucose R73.09 ; Hypokalemia E87.6 and Constipation K59.00 [place] [address] [id number] [address] [place] [id number] Feb, Elevated fasting blood sugar R73.01 [place] [address] [facility] [id number] [address] [place] [address] Feb, Elevated fasting blood sugar R73.01 [place] [address] [facility] [id number] [address] [place] [address] Feb, Hair loss L65.9 [place] [address] [place] [id number] [address] [place] [address] Feb, Sinusitis J32.9 ; Essential hypertension I10 and Hair loss L65.9 [place] [address] [place] [id number] [address] [place] [id number] Jan, [place] [address] [place] [id number] [address] [place] [id number] Jan, Essential hypertension I10 ; Neuroforaminal stenosis of spine M99.89 ; Neck pain M54.2 ; Mixed hyperlipidemia E78.2 and Anxiety F41.9 [place] [address] [place] [id number] [address] [place] [address] Jan, [place] [address] [place] [id number] [address] [place] [address] Jan, Mixed hyperlipidemia E78.2 ; Essential (primary) hypertension I10 ; Strain of muscle, fascia and tendon at neck level, subsequent encounter S16.1XXD and Tension-type headache, unspecified, not intractable G44.209 [place] [address] [facility] [id number] [address] [place] [address] Dec, Lumbar back pain 724.2 and N euroforaminal stenosis of spine 724.00 [place] [address] [place] [id number] [address] [place] [address] Nov, [facility] [address] [id number] [address] [place] [address] Nov, Lumbar back pain 724.2 and N euroforaminal stenosis of spine 724.00 [facility] [address] [id number] [address] [place] [address] Nov, Edema 782.3 ; Lumbar back pa in 724.2 ; Essential hypertension, benign 401.1 ; Hyperlipemia 272.4 ; Neuroforaminal stenosis of spine 724.00 and Post-concussion headache 339.20 [facility] [address] [id number] [address] [place] [address] Nov, [facility] [address] [id number] [address] [place] [id number] Nov, [facility] [address] [id number] [address] [place] [phone] Oct, Essential hypertension, sheridan gn 401.1 [facility] [address] [id number] [address] [place] [address] Oct, Edema 782.3 ; Lumbar back pa in 724.2 ; Essential hypertension, benign 401.1 ; Hyperlipemia 272.4 ; Neuroforaminal stenosis of spine 724.00 and Post-concussion headache 339.20 [facility] [address] [id number] [address] [place] [address] Oct, [facility] [address] [id number] [address] [place] [address] Oct, Edema 782.3 [facility] [address] [id number] [address] [place] [address] Oct, Lumbar back pain 724.2 [facility] [address] [id number] [address] [place] [address] Oct, Cervicalgia 723.1 ; Lumbar b ack pain 724.2 and High risk medication use V58.69 [facility] [address] [id number] [address] [place] [address] Sep, [facility] [address] [id number] [address] [place] [phone] Sep, Lumbar strain 847.2 [facility] [address] [facility] [id number] [address] [place] [address] August, Edema 782.3 and Eustachian t ube dysfunction 381.81 [facility] [address] [id number] [address] [place] [phone] August, [facility] [address] [id number] [address] [place] [address] August, Eustachian tube dysfunction 381.81 [facility] [address] [facility] [id number] [address] [place] [address] Jul, Otalgia 388.70 and Otitis me jonathon 382.9 [facility] [address] [id number] [address] [place] [phone] Jul, [facility] [address] [id number] [address] [place] [address] Jul, [facility] [address] [id number] [address] [place] [address] Jul, [facility] [address] [id number] [address] [place] [id number] 14 Jul, 2014 [facility] [address] [id number] [address] [place] [id number] 13 Jul, 2014 [facility] [address] [id number] [address] [place] [id number] Jun, [facility] [address] [id number] [address] [place] [address] Jun, [facility] [address] [id number] [address] [place] [address] Jun, [facility] [address] [id number] [address] [place] [address], [place] [address] May, 2014 [facility] [address] [id number] [address] [place] [address], [place] [address] May, 2014 [facility] [address] [id number] [address] [place] [address], [place] [address] May, 2014 [facility] [address] [id number] [address] [place] [address], [place] [address] May, 2014 [facility] [address] [id number] [address] [place] [address], [place] [address] May, 2014 [facility] [address] [id number] [address] [place] [address], [place] [address] May, 2014 [facility] [address] [id number] [address] [place] [address], [place] [address] May, 2014 [facility] [address] [id number] [address] [place] [address], [place] [address] May, 2014 [facility] [address] [id number] [address] [place] [address], [place] [address] May, [facility] [address] [id number] [address] [place] [address], [place] [address] May, [facility] [address] [id number] [address] [place] [address], [place] [address] Apr, [facility] [address] [id number] [address] [place] [address], [place] [address] Apr, [facility] [address] [id number] [address] [place] [address], [place] [address] Apr, [facility] [address] [id number] [address] [place] [address], [place] [address] Apr, [facility] [address] [id number] [address] [place] [address], [place] [address] Apr, [facility] [address] [id number] [address] [place] [address], [place] [address] Apr, [facility] [address] [id number] [address] [place] [address], [place] [address] Apr, [facility] [address] [id number] [address] [place] [address], [place] [id number] Apr, [facility] [address] [id number] [address] [place] [address], [place] [address] Apr, [facility] [address] [id number] [address] [place] [address], [place] [address] Apr, [facility] [address] [id number] [address] [place] [address], [place] [address] Apr, [facility] [address] [id number] [address] [place] [address], [place] [address] Apr, [facility] [address] [id number] [address] [place] [address], [place] [address] Apr, [facility] [address] [id number] [address] [place] [address], [place] [address] Apr, [facility] [address] [id number] [address] [place] [address], [place] [address] Apr, [facility] [address] [id number] [address] [place] [address], [place] [address] Mar, [facility] [address] [id number] [address] [place] [address], [place] [address] Mar, [facility] [address] [id number] [address] [place] [address], [place] [address] Mar, [facility] [address] [id number] [address] [place] [address], [place] [address] Mar, [facility] [address] [id number] [address] [place] [address], [place] [address] Feb, [facility] [address] [id number] [address] [place] [address], [place] [address] Feb, [facility] [address] [id number] [address] [place] [address], [place] [address] Feb, [facility] [address] [id number] [address] [place] [address], [place] [address] Feb, [facility] [address] [id number] [address] [place] [address], [place] [address] Jan, [facility] [address] [id number] [address] [place] [address], [place] [address] Jan, [facility] [address] [id number] [address] [place] [address], [place] [address] Jan, [facility] [address] [id number] [address] [place] [address], [place] [address] Jan, [facility] [address] [id number] [address] [place] [address], [place] [address] Jan, [facility] [address] [id number] [address] [place] [address], [place] [address] Jan, [facility] [address] [id number] [address] [place] [address], [place] [address] Jan, [facility] [address] [id number] [address] [place] [address], [place] [address] Jan, [facility] [address] [id number] [address] [place] [address], [place] [address] Dec, [facility] [address] [id number] [address] [place] [address], [place] [address] 29 Dec, 2013 [facility] [address] [id number] [address] [place] [address], [place] [address] Dec, [facility] [address] [id number] [address] [place] [address], [place] [address] Dec, [facility] [address] [id number] [address] [place] [address], [place] [address] Oct, [facility] [address] [id number] [address] [place] [address], [place] [address] Oct, [facility] [address] [id number] [facility] [place] [address] Oct, 2013 [facility] [address] [id number] [address] [place] [address], [place] [address] Oct, 2013 [facility] [address] [id number] [address] [place] [address], [place] [address] Oct, 2013 [facility] [address] [id number] [address] [place] [address], [place] [address] Oct, 2013 [facility] [address] [id number] [address] [place] [address], [place] [address] Oct, 2013 [facility] [address] [id number] [address] [place] [address], [place] [address] Oct, 2013 [facility] [address] [id number] [address] [place] [address], [place] [address] Sep, [facility] [address] [id number] [address] [place] [address], [place] [address] Sep, [facility] [address] [id number] [address] [place] [address], [place] [address] Sep, [facility] [address] [id number] [address] [place] [address], [place] [address] Sep, [facility] [address] [id number] [address] [place] [address], [place] [id number] Sep, [facility] [address] [id number] [address] [place] [address], [place] [address] Sep, [facility] [address] [id number] [address] [place] [address], [place] [id number] Sep, [facility] [address] [id number] [address] [place] [address], [place] [address] Sep, [facility] [address] [id number] [address] [place] [address], [place] [address] Sep, [facility] [address] [id number] [address] [place] [address], [place] [id number] Sep, [facility] [address] [id number] [address] [place] [address], [place] [address] August, [facility] [address] [id number] [address] [place] [address], [place] [address] August, [facility] [address] [id number] [address] [place] [address], [place] [address] August, [facility] [address] [id number] [address] [place] [address], [place] [address] August, [facility] [address] [id number] [address] [place] [address], [place] [address] August, [facility] [address] [id number] [address] [place] [address], [place] [address] August, [facility] [address] [id number] [address] [place] [address], [place] [address] August, [facility] [address] [id number] [address] [place] [address], [place] [address] August, [facility] [address] [id number] [address] [place] [address], [place] [address] August, [facility] [address] [id number] [address] [place] [address], [place] [id number] August, [facility] [address] [id number] [address] [place] [address], [place] [address] August, [facility] [address] [id number] [address] [place] [address], [place] [id number] August, [facility] [address] [id number] [address] [place] [address], [place] [id number] Jul, [facility] [address] [id number] [address] [place] [address], [place] [id number] Jul, [facility] [address] [id number] [address] [place] [address], [place] [id number] Jul, [facility] [address] [id number] [facility] [place] [id number] Jul, [facility] [address] [id number] [address] [place] [address], [place] [address] Jul, [facility] [address] [id number] [address] [place] [address], [place] [address] Jul, [facility] [address] [id number] [address] [place] [address], [place] [address] Jun, [facility] [address] [id number] [address] [place] [address], [place] [address] Jun, [facility] [address] [id number] [address] [place] [address], [place] [address] May, [facility] [address] [id number] [address] [place] [address], [place] [address] May, [facility] [address] [id number] [address] [place] [address], [place] [address] Apr, [facility] [address] [id number] [address] [place] [address], [place] [address] Apr, [facility] [address] [id number] [address] [place] [address], [place] [address] Apr, [facility] [address] [id number] [address] [place] [address], [place] [id number] Apr, [facility] [address] [id number] [address] [place] [address], [place] [address] Apr, [facility] [facility] [address] [id number] [address] [place] [address], [place] [address] Apr, [facility] [address] [id number] [address] [place] [address], [place] [address] Apr, [facility] [address] [id number] [address] [place] [address], [place] [address] Apr, [facility] [address] [id number] [address] [place] [address], [place] [address] Apr, [facility] [address] [id number] [address] [place] [address], [place] [address] Apr, [facility] [address] [id number] [address] [place] [address], [place] [address] Apr, [facility] [address] [id number] [address] [place] [address], [place] [address] Apr, [facility] [address] [id number] [address] [place] [address], [place] [address] Apr, [facility] [address] [id number] [address] [place] [address], [place] [address] Mar, [facility] [address] [id number] [address] [place] [address], [place] [address] Mar, [facility] [address] [id number] [address] [place] [address], [place] [address] Mar, [facility] [address] [id number] [address] [place] [address], [place] [address] Mar, [facility] [address] [id number] [address] [place] [address], [place] [address] Feb, [facility] [address] [id number] [address] [place] [address], [place] [address] Feb, [facility] [address] [id number] [address] [place] [address], [place] [address] Feb, [facility] [address] [id number] [address] [place] [address], [place] [address] Feb, [facility] [address] [id number] [address] [place] [address], [place] [address] 14 Jan, 2013 [facility] [address] [id number] [address] [place] [address], [place] [address] 14 Jan, 2013 [facility] [address] [id number] [address] [place] [address], [place] [address] 11 Jan, 2013 [facility] [address] [id number] [address] [place] [address], [place] [address] Jan, [facility] [address] [id number] [address] [place] [address], [place] [address] Jan, [facility] [address] [id number] [address] [place] [address], [place] [address] Jan, [facility] [address] [id number] [address] [place] [address], [place] [address] Jan, [facility] [address] [id number] [address] [place] [address], [place] [address] Jan, [facility] [address] [id number] [address] [place] [address], [place] [address] Jan, [facility] [address] [id number] [address] [place] [address], [place] [address] 26 Dec, 2012 [facility] [address] [id number] [address] [place] [address], [place] [address] 16 Dec, 2012 [facility] [address] [id number] [address] [place] [address], [place] [address] 16 Dec, 2012 [facility] [address] [id number] [address] [place] [address], [place] [address] 13 Dec, 2012 [facility] [address] [id number] [address] [place] [address], [place] [address] Nov, [facility] [address] [id number] [address] [place] [address], [place] [address] 17 Nov, 2012 [facility] [address] [id number] [address] [place] [address], [place] [address] 14 Nov, 2012 [facility] [address] [id number] [address] [place] [address], [place] [address] 05 Nov, 2012 [facility] [address] [id number] [address] [place] [address], [place] [address] 18 Oct, 2012 [facility] [address] [id number] [address] [place] [address], [place] [address] Sep, [facility] [address] [id number] [address] [place] [address], [place] [address] August, [facility] [address] [id number] [address] [place] [address], [place] [address] August, [facility] [address] [id number] [address] [place] [address], [place] [address] August, [facility] [address] [id number] [address] [place] [address], [place] [address] August, [facility] [address] [id number] [address] [place] [address], [place] [address] August, [facility] [address] [id number] [address] [place] [address], [place] [address] August, [facility] [address] [id number] [address] [place] [address], [place] [address] August, [facility] [address] [id number] [address] [place] [address], [place] [address] August, [facility] [address] [id number] [address] [place] [address], [place] [address] August, [facility] [address] [id number] [address] [place] [address], [place] [address] August, [facility] [address] [id number] [address] [place] [address], [place] [address] August, [facility] [address] [id number] [address] [place] [address], [place] [address] August, [facility] [address] [id number] [address] [place] [address], [place] [address] Jul, [facility] [address] [id number] [address] [place] [address], [place] [address] Jul, [facility] [address] [id number] [address] [place] [address], [place] [address] Jul, [facility] [address] [id number] [address] [place] [address], [place] [address] 15 Jul, 2012 [facility] [address] [id number] [address] [place] [address], [place] [address] 09 Jul, 2012 [facility] [address] [id number] [address] [place] [address], [place] [address] 08 Jul, 2012 [facility] [address] [id number] [address] [place] [address], [place] [address] 04 Jul, 2012 [facility] [address] [id number] [address] [place] [address], [place] [address] Jul, [facility] [address] [id number] [address] [place] [address], [place] [address] Jul, [facility] [address] [id number] [address] [place] [address], [place] [address] Jul, [facility] [address] [id number] [address] [place] [address], [place] [address] Jul, [facility] [address] [id number] [address] [place] [address], [place] [address] Jun, [facility] [address] [id number] [address] [place] [address], [place] [address] Jun, [facility] [address] [id number] [address] [place] [address], [place] [address] Jun, [facility] [address] [id number] [address] [place] [address], [place] [address] Jun, [facility] [address] [id number] [address] [place] [address], [place] [address] 28 May, 2012 [facility] [address] [id number] [address] [place] [address], [place] [address] 14 May, 2012 [facility] [address] [id number] [address] [place] [address], [place] [address] 05 May, 2012 [facility] [address] [id number] [address] [place] [address], [place] [address] May, [facility] [address] [id number] [address] [place] [address], [place] [address] May, [facility] [address] [id number] [address] [place] [address], [place] [address] May, [facility] [address] [id number] [address] [place] [address], [place] [address] Apr, [facility] [address] [id number] [address] [place] [address], [place] [address] Apr, [facility] [address] [id number] [address] [place] [address], [place] [address] Apr, [facility] [address] [id number] [address] [place] [address], [place] [address] Apr, [facility] [address] [id number] [address] [place] [address], [place] [address] 15 Mar, 2012 [facility] [address] [id number] [address] [place] [address], [place] [address] 14 Mar, 2012 [facility] [address] [id number] [address] [place] [address], [place] [address] Mar, [facility] [address] [id number] [address] [place] [address], [place] [address] 14 Mar, 2012 [facility] [address] [id number] [address] [place] [address], [place] [address] Mar, [facility] [address] [id number] [address] [place] [address], [place] [address] 06 Mar, 2012 [facility] [address] [id number] [address] [place] [address], [place] [address] Mar, [facility] [address] [id number] [address] [place] [address], [place] [address] Feb, [facility] [address] [id number] [address] [place] [address], [place] [address] Feb, [facility] [address] [id number] [address] [place] [address], [place] [address] Feb, [facility] [address] [id number] [address] [place] [address], [place] [address] Feb, [facility] [address] [id number] [address] [place] [address], [place] [address] Jan, [facility] [address] [id number] [address] [place] [address], [place] [address] Jan, [facility] [address] [id number] [address] [place] [address], [place] [address] Jan, [facility] [address] [id number] [address] [place] [address], [place] [address] Jan, [facility] [address] [id number] [address] [place] [address], [place] [address] Jan, [facility] [address] [id number] [address] [place] [address], [place] [address] Jan, [facility] [address] [id number] [address] [place] [address], [place] [address] Dec, [facility] [address] [id number] [address] [place] [address], [place] [address] Dec, [facility] [address] [id number] [address] [place] [address], [place] [address] Nov, [facility] [address] [id number] [address] [place] [address], [place] [address] Sep, [facility] [address] [id number] [address] [place] [address], [place] [address] August, [facility] [address] [id number] [address] [place] [address], [place] [address] August, [facility] [address] [id number] [address] [place] [address], [place] [address] August, [facility] [address] [id number] [address] [place] [address], [place] [address] August, [facility] [address] [id number] [address] [place] [address], [place] [address] August, [facility] [address] [id number] [address] [place] [address], [place] [address] Jun, [facility] [address] [id number] [address] [place] [address], [place] [address] Jun, [facility] [address] [id number] [address] [place] [address], [place] [address] Apr, [facility] [address] [id number] [address] [place] [address], [place] [address] Apr, [facility] [address] [id number] [address] [place] [address], [place] [address] Mar, [facility] [address] [id number] [address] [place] [address], [place] [address] Feb, [facility] [address] [id number] [address] [place] [address], [place] [address] Feb, [facility] [address] [id number] [address] [place] [address], [place] [address] Feb, [facility] [address] [id number] [address] [place] [address], [place] [address] 17 Jan, 2011 [facility] [address] [id number] [address] [place] [address], [place] [address] 15 Jan, 2011 [facility] [address] [id number] [address] [place] [id number] 15 Jan, 2011 [facility] [address] [id number] [address] [place] [address], [place] [address] 14 Jan, 2011 [facility] [address] [id number] [address] [place] [address], [place] [address] 15 May, 2010 [facility] [address] [id number] [address] [place] [address], [place] [address] 04 Mar, 2010 [facility] [address] [id number] [address] [place] [id number] Oct, [facility] [address] [facility] [id number] [address] [place] [id number] Sep, [facility] [address] [facility] [id number] [address] [place] [id number] Mar, [facility] [address] [facility] [id number] [address] [place] [id number] Jan, [facility] [address] [facility] [id number] [address] [place] [id number] Jan, [facility] [address] [facility] [id number] [address] [place] [id number] May, IMMUNIZATIONS No Known Immunizations SOCIAL HISTORY [...] squamous atypia (no definite dyplasia). Performed at [facility] Dr. Joy. Medical History Acute [...]
--- OUTSIDE RECORDS SUMMARY | 2019-11-23 05:39 | XMS REPORT ---
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 Active 824340025474 Problem Essential hypertension I10 Active 86509794 Problem Mixed hyperlipidemia E78.2 Active 97304556 Problem Other chronic pain G89.29 Active 8 2397155 Problem Neck pain M54.2 Active 75000639 Problem Slow transit constipation K59.01 Acti ve 34085850 Problem Anxiety F41.9 Active 44905033 Problem Hypokalemia E87.6 Active 68165009 Problem Chronic pain due to trauma G89.21 Act juanis 794575824 Problem Seasonal allergies J30.2 Active 4 28210318 Problem Rhinosinusitis J32.9 Active 97972 4004 ALLERGIES No Information ENCOUNTERS Encounter Location Date Diagnosis [place] [address] [facility] [id number] [address] [place] [phone] Jan, [facility] [address] [facility] [id number] [address] [place] [address] Oct, Neuroforaminal stenosis of s pine M99.89 [facility] [address] [facility] [id number] [address] [place] [phone] Oct, [facility] [address] [facility] [id number] [address] [place] [address] Oct, Right flank pain R10.9 ; Low er abdominal pain R10.30 ; Slow transit constipation K59.01 and 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 [facility] [address] [id number] [address] [place] [address] Oct, Neuroforaminal stenosis of s pine M99.89 [facility] [address] [id number] [address] [place] [phone] Oct, Neuroforaminal stenosis of s pine M99.89 ; Screening breast examination Z12.39 and Other chronic pain G89.29 [facility] [address] [id number] [address] [place] [phone] Sep, [place] [address] [facility] [id number] [address] [place] [id number] Sep, Neuroforaminal stenosis of s pine M99.89 [facility] [address] [facility] [id number] [address] [place] [phone] Sep, Encounter for laboratory luisa ting for COVID-19 virus V73.89 [place] [address] [facility] [id number] [address] [place] [address] August, Neuroforaminal stenosis of s pine M99.89 [place] [address] [facility] [id number] [address] [place] [address] August, Acute bacterial conjunctivit is of right eye H10.31 [facility] [address] [facility] [id number] [address] [place] [address] August, Low back pain M54.5 ; Other chronic pain G89.29 and Dysuria R30.0 [facility] [address] [facility] [id number] [address] [place] [address] August, [place] [address] [facility] [id number] [address] [place] [address] Jul, Neuroforaminal stenosis of s pine M99.89 [facility] [address] [facility] [id number] [address] [place] [address] Jul, Allergic conjunctivitis of b oth eyes H10.13 [facility] [address] [id number] [address] [place] [address] Jun, Hypokalemia E87.6 [facility] [address] [id number] [address] [place] [address] Jun, [facility] [address] [id number] [address] [place] [address] Jun, Neuroforaminal stenosis of s jose M99.89 [place] [address] [id number] [address] [place] [phone] 19 Jun, 2019 Lateral epicondylitis, left elbow M77.12 and Medial epicondylitis, left elbow M77.02 [place] [address] [id number] [address] [place] [address] 16 Jun, 2019 Foraminal stenosis of lumbar region M48.061 ; Segmental dysfunction of thoracic region M99.02 ; Segmental dysfunction of lumbar region M99.03 and Segmental dysfunction of sacral region M99.04 [place] [address] [id number] [address] [place] [address] 28 May, 2019 Left elbow pain M25.522 [place] [address] [facility] [id number] [address] [place] [address] May, [place] [address] [id number] [address] [place] [address] May, Left elbow pain M25.522 [place] [address] [id number] [address] [place] [address] May, Neuroforaminal stenosis of s jose M99.89 [facility] [address] [facility] [id number] [address] [place] [address] 26 May, 2019 Rhinosinusitis J32.9 ; Left elbow pain M25.522 and Neck pain M54.2 [place] [address] [facility] [id number] [address] [place] [address] 14 May, 2019 Lateral epicondylitis of lef t elbow M77.12 [facility] [address] [id number] [address] [place] [address] Apr, Neuroforaminal stenosis of s pine M99.89 [facility] [address] [id number] [address] [place] [address] Apr, Essential hypertension I10 a nd Mixed hyperlipidemia E78.2 [facility] [address] [id number] [address] [place] [phone] Mar, Neuroforaminal stenosis of s jose M99.89 [facility] [address] [id number] [address] [place] [address] Mar, Epicondylitis, lateral, left M77.12 [facility] [address] [id number] [address] [place] [phone] Mar, [facility] [address] [id number] [address] [place] [address] Mar, Neuroforaminal stenosis of s jose M99.89 [facility] [address] [id number] [address] [place] [address] Feb, Neuroforaminal stenosis of ayla garcia M99.89 ; Essential hypertension I10 ; Mixed hyperlipidemia E78.2 ; Encounter for immunization Z23 and Seasonal allergies J30.2 [facility] [address] [id number] [address] [place] [address] Jan, Neuroforaminal stenosis of s pine M99.89 [facility] [address] [id number] [address] [place] [address] Dec, Neuroforaminal stenosis of s pine M99.89 [facility] [address] [id number] [address] [place] [address] Dec, Neuroforaminal stenosis of s pine M99.89 [facility] [address] [id number] [address] [place] [address] Nov, [facility] [address] [id number] [address] [place] [address] Nov, Neuroforaminal stenosis of s pine M99.89 [facility] [address] [id number] [address] [place] [address] Nov, Acute non-recurrent maxillar y sinusitis J01.00 [facility] [address] [id number] [address] [place] [address] Oct, Hypokalemia E87.6 [facility] [address] [id number] [address] [place] [address] Oct, Wasp sting, undetermined int ent, initial encounter T63.464A and Cellulitis of left lower extremity L03.116 [facility] [address] [id number] [address] [place] [phone] Oct, Neuroforaminal stenosis of s pine M99.89 [facility] [address] [id number] [address] [place] [phone] Sep, [facility] [address] [id number] [address] [place] [phone] Sep, [facility] [address] [id number] [address] [place] [phone] Sep, Routine screening for STI (s exually transmitted infection) Z11.3 [facility] [address] [id number] [address] [place] [phone] Sep, Routine screening for STI (s exually transmitted infection) Z11.3 ; Well woman exam with routine gynecological exam Z01.419 and Breast cancer screening Z12.39 [facility] [address] [id number] [address] [place] [address] Sep, Neuroforaminal stenosis of s pine M99.89 [facility] [address] [id number] [address] [place] [address] August, Neuroforaminal stenosis of s pine M99.89 [facility] [address] [id number] [address] [place] [address] August, Neuroforaminal stenosis of s pine M99.89 ; Chronic pain due to trauma G89.21 and Mixed hyperlipidemia E78.2 [facility] [address] [id number] [address] [place] [address] Jul, Viral upper respiratory illn ess J06.9 and Acute non-recurrent frontal sinusitis J01.10 [facility] [address] [id number] [address] [place] [address] Jul, Congestion of nasal sinus R0 9.81 [facility] [address] [id number] [address] [place] [phone] Jul, Neuroforaminal stenosis of s pine M99.89 and Essential hypertension I10 [facility] [address] [id number] [address] [place] [address] May, Neuroforaminal stenosis of s pine M99.89 [facility] [address] [id number] [address] [place] [phone] May, [facility] [address] [id number] [address] [place] [address] May, Congestion of nasal sinus R0 9.81 [facility] [address] [id number] [address] [place] [phone] May, [facility] [address] [id number] [address] [place] [address] Apr, Neuroforaminal stenosis of s pine M99.89 [facility] [address] [id number] [address] [place] [address] Apr, Neuroforaminal stenosis of s pine M99.89 and Chronic pain due to trauma G89.21 [facility] [address] [id number] [address] [place] [address] Mar, UTI (urinary tract infection ) N39.0 [facility] [address] [id number] [address] [place] [phone] Mar, Vertigo R42 [facility] [address] [id number] [address] [place] [phone] 03 Mar, 2018 Neuroforaminal stenosis of s jose M99.89 [facility] [address] [id number] [address] [place] [address] Feb, Extensor tendon disruption M 67.89 [facility] [address] [id number] [address] [place] [address] Feb, Neuroforaminal stenosis of s pine M99.89 and High risk medication use Z79.899 [facility] [address] [id number] [address] [place] [phone] Jan, Hypokalemia E87.6 [facility] [address] [id number] [address] [place] [phone] Jan, Flank pain R10.9 and Acute r ight-sided low back pain without sciatica M54.5 [facility] [address] [id number] [address] [place] [address] Jan, Hypokalemia E87.6 [facility] [address] [id number] [address] [place] [phone] Jan, [facility] [address] [facility] [id number] [address] [place] [phone] Jan, URI, acute J06.9 [facility] [address] [id number] [address] [place] [phone] 05 Jan, 2018 Neuroforaminal stenosis of s jose M99.89 [facility] [address] [id number] [address] [place] [phone] 13 Dec, 2017 Lateral epicondylitis, right elbow M77.11 [facility] [address] [facility] [id number] [address] [place] [id number] 11 Dec, 2017 Allergic rhinitis due to monica rosalina, unspecified seasonality J30.1 and Allergic conjunctivitis of both eyes H10.13 [place] [address] [place] [id number] [address] [place] [phone] Dec, Neuroforaminal stenosis of s pine M99.89 [place] [address] [place] [id number] [address] [place] [address] Dec, Mixed hyperlipidemia E78.2 [place] [address] [place] [id number] [place] [address] Dec, Abnormal glucose R73.09 ; Ab normal renal ultrasound R93.429 ; Dysuria R30.0 ; Cystitis without hematuria N30.90 ; Hypokalemia E87.6 ; Mixed hyperlipidemia E78.2 and Hematuria, unspecified type R31.9 [place] [address] [place] [id number] [place] [address] Nov, Hypokalemia E87.6 ; Mixed hy perlipidemia E78.2 and Hematuria, unspecified type R31.9 [place] [address] [place] [id number] [address] [place] [address] Nov, [place] [address] [place] [id number] [address] [place] [address] Nov, Hypokalemia E87.6 [place] [address] [place] [id number] [address] [place] [phone] Nov, [place] [address] [place] [id number] [address] [place] [address] Nov, Abnormal renal ultrasound R9 3.429 [place] [address] [place] [id number] [address] [place] [address] Nov, Abnormal renal ultrasound R9 3.429 [place] [address] [facility] [id number] [address] [place] [phone] Nov, Hematuria, unspecified type R31.9 and 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 [place] [address] [place] [id number] [address] [place] [address] Nov, Dysuria R30.0 [facility] [address] [id number] [address] [place] [phone] Oct, Lateral epicondylitis, right elbow M77.11 [facility] [address] [id number] [address] [place] [phone] Oct, Neuroforaminal stenosis of s pine M99.89 ; Visit for TB skin test Z11.1 and Essential hypertension I10 [place] [address] [id number] [address] [place] [address] Oct, [place] [address] [id number] [address] [place] [address] Oct, Neuroforaminal stenosis of s pine M99.89 [place] [address] [id number] [address] [place] [address] Oct, Visit for TB skin test Z11.1 [place] [address] [id number] [address] [place] [address] Oct, Cystitis without hematuria N 30.90 [place] [address] [id number] [address] [place] [address] Sep, Screening breast examination Z12.39 [place] [address] [id number] [address] [place] [address] Sep, Dysuria R30.0 and Cystitis w ithout hematuria N30.90 [place] [address] [id number] [address] [place] [address] Sep, Essential hypertension I10 a nd 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 [place] [address] [id number] [address] [place] [address] Sep, Abnormal glucose R73.09 [place] [address] [id number] [address] [place] [address] August, Lateral epicondylitis, right elbow M77.11 [facility] [address] [id number] [address] [place] [address] August, Screen for STD (sexually tra nsmitted disease) Z11.3 [facility] [address] [id number] [address] [place] [address] August, Neuroforaminal stenosis of s jose M99.89 ; Mixed hyperlipidemia E78.2 ; Elevated fasting glucose R73.01 ; Screening mammogram, encounter for Z12.31 and Encounter for well woman exam without gynecological exam Z00.00 [facility] [address] [id number] [address] [place] [address] August, Neuroforaminal stenosis of s pine M99.89 [facility] [address] [id number] [address] [place] [address] August, Essential hypertension I10 ; Hypokalemia E87.6 and Mixed hyperlipidemia E78.2 [place] [address] [id number] [address] [place] [address] Jul, [facility] [address] [id number] [address] [place] [address] Jul, Neuroforaminal stenosis of s jose M99.89 [facility] [address] [id number] [address] [place] [address] Jul, Lateral epicondylitis, right elbow M77.11 [facility] [address] [id number] [address] [place] [address] Jul, [place] [address] [id number] [address] [place] [address] Jun, High ankle sprain of right l ower extremity, initial encounter S93.431A [place] [address] [id number] [address] [place] [address] Jun, Essential hypertension I10 [place] [address] [facility] [id number] [address] [place] [phone] Jun, [place] [id number] [place] [address] Jun, [place] [address] [place] [id number] [place] [address] Jun, Neuroforaminal stenosis of s pine M99.89 [place] [address] [address] Jun, Pain of right upper extremit y M79.601 and Essential hypertension I10 [place] [id number] [place] [address] Jun, [place] [address] [address] Jun, Dysuria R30.0 ; Acute cystit is with hematuria N30.01 and Screen for STD (sexually transmitted disease) Z11.[address] [address] May, Chronic pain due to trauma G 89.21 [place] [address] [place] [id number] [address] [place] [address] May, Essential hypertension I10 [place] [id number] [place] [address] May, Neuroforaminal stenosis of s pine M99.89 [place] [address] [place] [id number] [address] [place] [address] Apr, Allergic reaction, initial e ncounter T78.40XA [place] [address] [place] [id number] [address] [place] [address] Apr, Low back pain, unspecified b ack pain laterality, unspecified chronicity, with sciatica presence unspecified M54.5 ; Acute cystitis with hematuria N30.01 ; 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 ; Bilateral acute serous otitis media, recurrence not specified H65.03 ; Mixed hyperlipidemia E78.2 ; Essential hypertension I10 ; Immunization counseling Z71.89 and Encounter for immunization Z23 [facility] [address] [id number] [address] [place] [address] 08 Apr, 2017 Neck pain M54.2 [facility] [address] [id number] [address] [place] [address] Mar, Neuroforaminal stenosis of s pine M99.89 [facility] [address] [id number] [address] [place] [phone] Mar, Pharyngitis due to other org anism J02.8 [facility] [address] [id number] [address] [place] [address] Feb, Neuroforaminal stenosis of s pine M99.89 [facility] [address] [id number] [address] [place] [phone] 08 Feb, 2017 UTI (urinary tract infection ) N39.0 [facility] [address] [id number] [address] [place] [address] Feb, Recent urinary tract infecti on Z87.440 ; 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 ; Neck pain M54.2 ; Chronic pain due to trauma G89.21 and Recurrent UTI N39.0 [facility] [address] [id number] [address] [place] [address] Feb, [facility] [address] [id number] [address] [place] [phone] Jan, Neuroforaminal stenosis of s pine M99.89 [facility] [address] [id number] [address] [place] [address] Dec, Neuroforaminal stenosis of s pine M99.89 [facility] [address] [id number] [address] [place] [phone] 18 Dec, 2016 Acute seasonal allergic rhin itis due to pollen J30.1 [facility] [address] [id number] [address] [place] [phone] 08 Dec, 2016 [facility] [address] [id number] [address] [place] [phone] 08 Dec, 2016 Acute seasonal allergic rhin itis, unspecified trigger J30.2 ; Allergic conjunctivitis of both eyes H10.13 and Dysfunction of both eustachian tubes H69.83 [place] [address] [id number] [address] [place] [phone] 07 Dec, 2016 [place] [address] [facility] [id number] [address] [place] [address] Dec, Nevus D22.9 [place] [address] [id number] [address] [place] [address] Nov, Chronic pain due to trauma G 89.21 and 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 [place] [address] [id number] [address] [place] [address] Nov, Neuroforaminal stenosis of s pine M99.89 ; Essential hypertension I10 ; Mixed hyperlipidemia E78.2 ; Hypokalemia E87.6 ; Neck pain M54.2 and Nevus D22.9 [place] [address] [id number] [address] [place] [id number] Oct, Neuroforaminal stenosis of s pine M99.89 [place] [address] [id number] [address] [place] [id number] Sep, Neuroforaminal stenosis of s pine M99.89 [place] [address] [id number] [address] [place] [id number] Sep, [place] [address] [id number] [address] [place] [phone] August, [place] [address] [facility] [id number] [address] [place] [id number] August, Neck pain M54.2 and Neurofor aminal stenosis of spine M99.89 [place] [address] [id number] [address] [place] [id number] August, Routine gynecological examin ation Z01.419 and Screening breast examination Z12.39 [facility] [address] [id number] [address] [place] [id number] Jul, [facility] [address] [id number] [address] [place] [phone] Jul, [facility] [address] [id number] [address] [place] [address] Jul, Neuroforaminal stenosis of s pine M99.89 [facility] [address] [id number] [address] [place] [id number] Jul, [facility] [address] [id number] [address] [place] [phone] Jul, Neuroforaminal stenosis of l umbar 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 [facility] [address] [id number] [address] [place] [address] Jul, [facility] [address] [id number] [address] [place] [phone] Jul, [facility] [address] [id number] [address] [place] [address] Jun, Neuroforaminal stenosis of s pine M99.89 [facility] [address] [id number] [address] [place] [address] Jun, Uterine leiomyoma, unspecifi ed location D25.9 and Allergic reaction caused by a drug, initial encounter T78.40XA [facility] [address] [id number] [address] [place] [id number] Jun, [facility] [address] [id number] [address] [place] [phone] May, UTI symptoms R39.9 and Pain of right sacroiliac joint M53.3 [facility] [address] [id number] [address] [place] [address] May, Neuroforaminal stenosis of s pine M99.89 [place] [address] [id number] [address] [place] [phone] May, [facility] [address] [facility] [id number] [address] [place] [address] May, Acute mucoid otitis media of left ear H65.112 and Acute non- recurrent maxillary sinusitis J01.00 [facility] [address] [id number] [address] [place] [address] May, Acute bacterial conjunctivit is of both eyes H10.33 ; Left arm pain M79.602 and Hypokalemia E87.6 [facility] [address] [id number] [address] [place] [address] Apr, [facility] [address] [facility] [id number] [address] [place] [address] Apr, Neuroforaminal stenosis of s pine M99.89 ; Neck pain M54.2 ; Chronic pain due to trauma G89.21 ; Mixed hyperlipidemia E78.2 ; Essential hypertension I10 and Hypokalemia E87.6 [place] [address] [facility] [id number] [address] [place] [address] Mar, Oral candidiasis B37.0 ; Nathaniel roforaminal stenosis of spine M99.89 ; Neck pain M54.2 and Chronic pain due to trauma G89.21 [facility] [address] [facility] [id number] [address] [place] [phone] Feb, [facility] [address] [id number] [address] [place] [phone] Feb, [facility] [address] [facility] [id number] [address] [place] [phone] Feb, UTI (urinary tract infection ) N39.0 [place] [address] [facility] [id number] [address] [place] [address] Feb, Dysuria R30.0 [place] [address] [facility] [id number] [address] [place] [phone] Feb, Dysuria R30.0 [facility] [address] [id number] [address] [place] [address] Feb, Neuroforaminal stenosis of s pine M99.89 ; Neck pain M54.2 ; Essential hypertension I10 ; Chronic pain due to trauma G89.21 ; Dysuria R30.0 ; Abnormal MRI, shoulder R93.8 and Acute cystitis without hematuria N30.00 [facility] [address] [id number] [address] [place] [phone] Jan, [facility] [address] [id number] [address] [place] [phone] Jan, [facility] [address] [id number] [address] [place] [phone] Jan, [facility] [address] [id number] [address] [place] [address] Jan, Abnormal MRI R93.8 [facility] [address] [id number] [address] [place] [phone] 29 Dec, 2015 [facility] [address] [id number] [address] [place] [address] 15 Dec, 2015 Acute pain of left shoulder M25.512 [facility] [address] [id number] [address] [place] [phone] 09 Dec, 2015 [facility] [address] [id number] [address] [place] [address] 08 Dec, 2015 [facility] [address] [id number] [address] [place] [address] 07 Dec, 2015 Acute pain of left shoulder M25.512 [facility] [address] [id number] [address] [place] [address] Nov, [facility] [address] [id number] [address] [place] [address] Nov, Neuroforaminal stenosis of s pine M99.89 ; Neck pain M54.2 ; Abnormal mammogram R92.8 ; Essential hypertension I10 and Chronic pain due to trauma G89.21 [facility] [address] [id number] [address] [place] [address] Nov, [facility] [address] [id number] [address] [place] [phone] Oct, Acute stress disorder F43.0 [facility] [address] [id number] [address] [place] [phone] Oct, [facility] [address] [id number] [address] [place] [address] Oct, [facility] [address] [id number] [address] [place] [address] Oct, [facility] [address] [id number] [address] [place] [phone] Sep, [facility] [address] [id number] [address] [place] [phone] August, [facility] [address] [id number] [address] [place] [address] Jul, Neuroforaminal stenosis of s pine M99.89 ; Neck pain M54.2 ; Abnormal mammogram R92.8 and Essential hypertension I10 [facility] [address] [id number] [address] [place] [phone] Jul, [facility] [address] [id number] [address] [place] [phone] Jul, [facility] [address] [id number] [address] [place] [phone] Jul, Abnormal mammogram R92.8 [facility] [address] [id number] [address] [place] [phone] Jul, [facility] [address] [id number] [address] [place] [phone] Jul, UTI (urinary tract infection ) N39.0 [facility] [address] [id number] [address] [place] [address] Jul, Dysuria R30.0 [facility] [address] [id number] [address] [place] [phone] Jun, [facility] [address] [facility] [id number] [address] [place] [phone] Jun, [facility] [address] [facility] [id number] [address] [place] [phone] Jun, Hypokalemia E87.6 and Hematu martina R31.9 [facility] [address] [facility] [id number] [address] [place] [phone] Jun, Hypokalemia E87.6 [facility] [address] [facility] [id number] [address] [place] [phone] Jun, [facility] [address] [facility] [id number] [address] [place] [phone] Jun, Hypokalemia E87.6 [facility] [address] [facility] [id number] [address] [place] [phone] Jun, Hypokalemia E87.6 [facility] [address] [facility] [id number] [address] [place] [address] Jun, Neuroforaminal stenosis of s pine M99.89 ; Hypokalemia E87.6 ; Neck pain M54.2 ; Essential hypertension I10 ; Mixed hyperlipidemia E78.2 and Screening breast examination Z12.39 [facility] [address] [facility] [id number] [address] [place] [phone] Jun, Dysuria R30.0 ; UTI (urinary tract infection) N39.0 and Hematuria R31.9 [facility] [address] [facility] [id number] [address] [place] [phone] May, [facility] [address] [facility] [id number] [address] [place] [address] May, High risk sexual behavior Z7 2.51 ; Hypokalemia E87.6 ; Neuroforaminal stenosis of spine M99.89 ; Neck pain M54.2 ; Essential hypertension I10 ; Mixed hyperlipidemia E78.2 ; STD exposure Z20.2 and Concern about STD in female without diagnosis Z71.1 [facility] [address] [address] 16 May, 2015 Neuroforaminal stenosis of s pine M99.89 ; Neck pain M54.2 ; Hypokalemia E87.6 ; Essential hypertension I10 and Mixed hyperlipidemia E78.2 [facility] [address] [address] 11 May, 2015 [facility] [address] [place] [address] 08 May, 2015 High risk sexual behavior Z7 2.51 ; STD exposure Z20.2 and Concern about STD in female without diagnosis Z71.1 [facility] [address] [address] May, [address] [address] Apr, Neuroforaminal stenosis of s pine M99.89 ; Mixed hyperlipidemia E78.2 ; Essential hypertension I10 and Hypokalemia E87.[address] [address] Mar, [address] [address] Mar, Hypokalemia E87.[address] [address] Mar, Neuroforaminal stenosis of s pine M99.89 ; Mixed hyperlipidemia E78.2 ; Neck pain M54.2 ; Essential hypertension I10 ; Abnormal fasting glucose R73.09 ; Hypokalemia E87.6 and Constipation K59.00 [place] [address] [facility] [id number] [address] [place] [address] Feb, Neuroforaminal stenosis of s pine M99.89 ; Mixed hyperlipidemia E78.2 ; Neck pain M54.2 ; Essential hypertension I10 ; Abnormal fasting glucose R73.09 ; Hypokalemia E87.6 and Constipation K59.00 [place] [address] [facility] [id number] [address] [place] [address] Feb, Elevated fasting blood sugar R73.01 [place] [address] [facility] [id number] [address] [place] [address] Feb, Elevated fasting blood sugar R73.01 [place] [address] [facility] [id number] [address] [place] [address] Feb, Hair loss L65.9 [place] [address] [place] [id number] [address] [place] [address] Feb, Sinusitis J32.9 ; Essential hypertension I10 and Hair loss L65.9 [place] [address] [facility] [id number] [address] [place] [address] Jan, [place] [address] [place] [id number] [address] [place] [address] Jan, Essential hypertension I10 ; Neuroforaminal stenosis of spine M99.89 ; Neck pain M54.2 ; Mixed hyperlipidemia E78.2 and Anxiety F41.9 [place] [address] [facility] [id number] [address] [place] [phone] Jan, [place] [address] [facility] [id number] [address] [place] [phone] Jan, Mixed hyperlipidemia E78.2 ; Essential (primary) hypertension I10 ; Strain of muscle, fascia and tendon at neck level, subsequent encounter S16.1XXD and Tension-type headache, unspecified, not intractable G44.209 [facility] [address] [facility] [id number] [address] [place] [address] Dec, Lumbar back pain 724.2 and N euroforaminal stenosis of spine 724.00 [facility] [address] [id number] [address] [place] [phone] Nov, [facility] [address] [id number] [address] [place] [address] Nov, Lumbar back pain 724.2 and N euroforaminal stenosis of spine 724.00 [facility] [address] [id number] [address] [place] [address] Nov, Edema 782.3 ; Lumbar back pa in 724.2 ; Essential hypertension, benign 401.1 ; Hyperlipemia 272.4 ; Neuroforaminal stenosis of spine 724.00 and Post-concussion headache 339.20 [facility] [address] [id number] [address] [place] [address] Nov, [facility] [address] [id number] [address] [place] [address] Nov, [facility] [address] [id number] [address] [place] [address] Oct, Essential hypertension, sheridan gn 401.1 [facility] [address] [id number] [address] [place] [address] Oct, Edema 782.3 ; Lumbar back pa in 724.2 ; Essential hypertension, benign 401.1 ; Hyperlipemia 272.4 ; Neuroforaminal stenosis of spine 724.00 and Post-concussion headache 339.20 [facility] [address] [id number] [address] [place] [phone] Oct, [facility] [address] [id number] [address] [place] [address] Oct, Edema 782.3 [facility] [address] [id number] [address] [place] [address] Oct, Lumbar back pain 724.2 [facility] [address] [id number] [address] [place] [address] Oct, Cervicalgia 723.1 ; Lumbar b ack pain 724.2 and High risk medication use V58.69 [facility] [address] [id number] [address] [place] [address] Sep, [facility] [address] [id number] [address] [place] [id number] Sep, Lumbar strain 847.2 [facility] [address] [id number] [address] [place] [address] August, Edema 782.3 and Eustachian t ube dysfunction 381.81 [facility] [address] [id number] [address] [place] [phone] August, [facility] [address] [facility] [id number] [address] [place] [address] August, Eustachian tube dysfunction 381.81 [facility] [address] [id number] [address] [place] [address] Jul, Otalgia 388.70 and Otitis me jonathon 382.9 [facility] [address] [id number] [address] [place] [id number] Jul, [facility] [address] [id number] [address] [place] [phone] Jul, [facility] [address] [id number] [address] [place] [address] Jul, [facility] [address] [id number] [address] [place] [phone] Jul, [facility] [address] [id number] [address] [place] [phone] Jul, [facility] [address] [id number] [address] [place] [id number] Jun, [facility] [address] [id number] [address] [place] [id number] Jun, [facility] [address] [id number] [address] [place] [address], [place] [address] Jun, [facility] [address] [id number] [address] [place] [address], [place] [address] May, 2014 [facility] [address] [id number] [address] [place] [address], [place] [address] May, 2014 [facility] [address] [id number] [address] [place] [address], [place] [address] May, 2014 [facility] [address] [id number] [address] [place] [address], [place] [address] May, 2014 [facility] [address] [id number] [address] [place] [address], [place] [address] May, 2014 [facility] [address] [id number] [address] [place] [address], [place] [address] May, [facility] [address] [id number] [address] [place] [address], [place] [address] May, [facility] [address] [id number] [address] [place] [address], [place] [address] May, [facility] [address] [id number] [address] [place] [address], [place] [address] May, [facility] [address] [id number] [address] [place] [address], [place] [address] May, [facility] [address] [id number] [address] [place] [phone] Apr, [facility] [address] [id number] [address] [place] [address], [place] [address] Apr, [facility] [address] [id number] [address] [place] [address], [place] [address] Apr, [facility] [address] [id number] [address] [place] [phone] Apr, [facility] [address] [id number] [address] [place] [id number] Apr, [facility] [address] [id number] [address] [place] [address], [place] [address] Apr, [facility] [address] [id number] [address] [place] [address], [place] [address] Apr, [facility] [address] [id number] [address] [place] [address], [place] [address] Apr, [facility] [address] [id number] [address] [place] [address], [place] [address] Apr, [facility] [address] [id number] [address] [place] [address], [place] [address] Apr, [facility] [address] [id number] [address] [place] [address], [place] [address] Apr, [facility] [address] [id number] [address] [place] [address], [place] [address] Apr, [facility] [address] [id number] [address] [place] [address], [place] [address] Apr, [facility] [address] [id number] [address] [place] [address], [place] [address] Apr, [facility] [address] [id number] [address] [place] [address], [place] [address] Apr, [facility] [address] [id number] [address] [place] [address], [place] [address] Mar, [facility] [address] [id number] [address] [place] [address], [place] [address] Mar, [facility] [address] [id number] [address] [place] [address], [place] [address] Mar, [facility] [address] [id number] [address] [place] [address], [place] [address] Mar, [facility] [address] [id number] [address] [place] [address], [place] [address] Feb, [facility] [address] [id number] [address] [place] [address], [place] [id number] 07 Feb, 2014 [facility] [address] [id number] [address] [place] [address], [place] [address] Feb, [facility] [address] [id number] [address] [place] [address], [place] [address] Feb, [facility] [address] [id number] [address] [place] [address], [place] [address] Jan, [facility] [address] [id number] [address] [place] [address], [place] [address] Jan, [facility] [address] [id number] [address] [place] [address], [place] [address] Jan, [facility] [address] [id number] [address] [place] [address], [place] [address] Jan, [facility] [address] [id number] [address] [place] [address], [place] [address] Jan, [facility] [address] [id number] [address] [place] [address], [place] [address] Jan, [facility] [address] [id number] [address] [place] [address], [place] [address] Jan, [facility] [address] [id number] [address] [place] [address], [place] [address] Jan, [facility] [address] [id number] [address] [place] [address], [place] [address] 29 Dec, 2013 [facility] [address] [id number] [address] [place] [address], [place] [address] 29 Dec, 2013 [facility] [address] [id number] [address] [place] [address], [place] [address] 04 Dec, 2013 [facility] [address] [id number] [address] [place] [address], [place] [address] 04 Dec, 2013 [facility] [address] [id number] [address] [place] [address], [place] [address] 14 Oct, 2013 [facility] [address] [id number] [address] [place] [address] 14 Oct, 2013 [facility] [address] [id number] [facility] [place] [address] Oct, 2013 [facility] [address] [id number] [facility] [place] [address] Oct, 2013 [facility] [address] [id number] [address] [place] [address], [place] [address] Oct, 2013 [facility] [address] [id number] [address] [place] [address], [place] [address] Oct, 2013 [facility] [address] [id number] [address] [place] [address], [place] [address] Oct, 2013 [facility] [address] [id number] [address] [place] [address], [place] [address] Oct, [facility] [address] [id number] [address] [place] [address], [place] [address] Sep, [facility] [address] [id number] [address] [place] [address], [place] [address] Sep, [facility] [address] [id number] [address] [place] [address], [place] [address] Sep, [facility] [address] [id number] [address] [place] [address], [place] [address] Sep, [facility] [address] [id number] [address] [place] [address], [place] [address] Sep, [facility] [address] [id number] [address] [place] [address], [place] [address] Sep, [facility] [address] [id number] [address] [place] [address], [place] [address] Sep, [facility] [address] [id number] [address] [place] [address], [place] [address] Sep, [facility] [address] [id number] [address] [place] [address], [place] [address] Sep, [facility] [address] [id number] [address] [place] [address], [place] [address] Sep, [facility] [address] [id number] [address] [place] [address], [place] [address] August, [facility] [address] [id number] [address] [place] [address], [place] [address] August, [facility] [address] [id number] [address] [place] [address], [place] [address] August, [facility] [address] [id number] [address] [place] [address], [place] [address] August, [facility] [address] [id number] [address] [place] [address], [place] [address] August, [facility] [address] [id number] [address] [place] [address], [place] [address] August, [facility] [address] [id number] [address] [place] [address], [place] [address] August, [facility] [address] [id number] [address] [place] [address], [place] [address] August, [facility] [address] [id number] [address] [place] [address], [place] [address] August, [facility] [address] [id number] [address] [place] [address], [place] [address] August, [facility] [address] [id number] [address] [place] [address], [place] [address] August, [facility] [address] [id number] [address] [place] [address], [place] [address] August, [facility] [address] [id number] [address] [place] [address], [place] [address] Jul, [facility] [address] [id number] [address] [place] [address], [place] [address] Jul, [facility] [address] [id number] [facility] [place] [address] Jul, [facility] [address] [id number] [facility] [place] [address] Jul, [facility] [address] [id number] [facility] [place] [address] Jul, [facility] [address] [id number] [address] [place] [address], [place] [address] Jul, [facility] [address] [id number] [address] [place] [address], [place] [address] Jun, [facility] [address] [id number] [address] [place] [address], [place] [address] Jun, [facility] [address] [id number] [address] [place] [address], [place] [address] May, [facility] [address] [id number] [address] [place] [address], [place] [address] May, [facility] [address] [id number] [address] [place] [address], [place] [address] Apr, [facility] [address] [id number] [address] [place] [address], [place] [address] Apr, [facility] [address] [id number] [address] [place] [address], [place] [address] Apr, [facility] [address] [id number] [address] [place] [address], [place] [address] Apr, [facility] [address] [id number] [address] [place] [address], [place] [address] Apr, [facility] [address] [id number] [address] [place] [address], [place] [address] Apr, [facility] [address] [id number] [address] [place] [address], [place] [address] Apr, [facility] [address] [id number] [address] [place] [address], [place] [address] Apr, [facility] [address] [id number] [address] [place] [address], [place] [address] Apr, [facility] [address] [id number] [address] [place] [address], [place] [address] Apr, [facility] [address] [id number] [address] [place] [address], [place] [address] Apr, [facility] [address] [id number] [address] [place] [address], [place] [address] Apr, [facility] [address] [id number] [address] [place] [address], [place] [address] Apr, [facility] [address] [id number] [address] [place] [address], [place] [address] Mar, [facility] [address] [id number] [address] [place] [address], [place] [address] Mar, [facility] [address] [id number] [address] [place] [address], [place] [address] Mar, [facility] [address] [id number] [address] [place] [address], [place] [address] Mar, [facility] [address] [id number] [address] [place] [address], [place] [address] Feb, [facility] [address] [id number] [address] [place] [address], [place] [address] Feb, [facility] [address] [id number] [address] [place] [address], [place] [address] Feb, [facility] [address] [id number] [address] [place] [address], [place] [address] Feb, [facility] [address] [id number] [address] [place] [address], [place] [address] Jan, [facility] [address] [id number] [address] [place] [address], [place] [address] Jan, [facility] [address] [id number] [address] [place] [address], [place] [address] Jan, [facility] [address] [id number] [address] [place] [address], [place] [address] Jan, [facility] [address] [id number] [address] [place] [address], [place] [address] Jan, [facility] [address] [id number] [address] [place] [address], [place] [address] Jan, [facility] [address] [id number] [address] [place] [address], [place] [address] Jan, [facility] [address] [id number] [address] [place] [address], [place] [address] Jan, [facility] [address] [id number] [address] [place] [address], [place] [address] Jan, [facility] [address] [id number] [address] [place] [address], [place] [address] 26 Dec, 2012 [facility] [address] [id number] [address] [place] [address], [place] [address] 16 Dec, 2012 [facility] [address] [id number] [address] [place] [address], [place] [address] 16 Dec, 2012 [facility] [address] [id number] [address] [place] [address], [place] [address] 13 Dec, 2012 [facility] [address] [id number] [address] [place] [address], [place] [address] 17 Nov, 2012 [facility] [address] [id number] [address] [place] [address], [place] [address] 17 Nov, 2012 [facility] [address] [id number] [address] [place] [address], [place] [address] 14 Nov, 2012 [facility] [address] [id number] [address] [place] [address], [place] [address] 05 Nov, 2012 [facility] [address] [id number] [address] [place] [address], [place] [address] Oct, [facility] [address] [id number] [address] [place] [address], [place] [address] Sep, [facility] [address] [id number] [address] [place] [address], [place] [address] August, [facility] [address] [id number] [address] [place] [address], [place] [address] August, [facility] [address] [id number] [address] [place] [address], [place] [address] August, [facility] [address] [id number] [address] [place] [address], [place] [address] August, [facility] [address] [id number] [address] [place] [address], [place] [address] August, [facility] [address] [id number] [address] [place] [address], [place] [address] August, [facility] [address] [id number] [address] [place] [address], [place] [address] August, [facility] [address] [id number] [address] [place] [address], [place] [address] August, [facility] [address] [id number] [address] [place] [address], [place] [address] August, [facility] [address] [id number] [address] [place] [address], [place] [address] August, [facility] [address] [id number] [address] [place] [address], [place] [address] August, [facility] [address] [id number] [address] [place] [address], [place] [address] August, [facility] [address] [id number] [address] [place] [address], [place] [address] Jul, [facility] [address] [id number] [address] [place] [address], [place] [address] Jul, [facility] [address] [id number] [address] [place] [address] 18 Jul, 2012 [facility] [address] [id number] [address] [place] [address], [place] [address] 15 Jul, 2012 [facility] [address] [id number] [address] [place] [address], [place] [address] Jul, [facility] [address] [id number] [address] [place] [address], [place] [address] Jul, [facility] [address] [id number] [address] [place] [address], [place] [address] Jul, [facility] [address] [id number] [address] [place] [address], [place] [address] Jul, [facility] [address] [id number] [address] [place] [address], [place] [address] Jul, [facility] [address] [id number] [address] [place] [address], [place] [address] Jul, [facility] [address] [id number] [address] [place] [address], [place] [address] Jul, [facility] [address] [id number] [address] [place] [address], [place] [address] Jun, [facility] [address] [id number] [address] [place] [address], [place] [address] Jun, [facility] [address] [id number] [address] [place] [address], [place] [address] Jun, [facility] [address] [id number] [address] [place] [address], [place] [address] Jun, [facility] [address] [id number] [address] [place] [address], [place] [address] May, [facility] [address] [id number] [address] [place] [address], [place] [address] 14 May, 2012 [facility] [address] [id number] [address] [place] [address], [place] [address] 05 May, 2012 [facility] [address] [id number] [address] [place] [address], [place] [address] May, [facility] [address] [id number] [address] [place] [address], [place] [address] May, [facility] [address] [id number] [address] [place] [address], [place] [address] May, [facility] [address] [id number] [address] [place] [address], [place] [address] Apr, [facility] [address] [id number] [address] [place] [address], [place] [address] Apr, [facility] [address] [id number] [address] [place] [address], [place] [address] Apr, [facility] [address] [id number] [address] [place] [address], [place] [address] Apr, [facility] [address] [id number] [address] [place] [address], [place] [address] 15 Mar, 2012 [facility] [address] [id number] [address] [place] [address], [place] [address] Mar, [facility] [address] [id number] [address] [place] [address], [place] [address] 14 Mar, 2012 [facility] [address] [id number] [address] [place] [address], [place] [address] 14 Mar, 2012 [facility] [address] [id number] [address] [place] [address], [place] [address] 14 Mar, 2012 [facility] [address] [id number] [address] [place] [address], [place] [address] 06 Mar, 2012 [facility] [address] [id number] [address] [place] [address], [place] [address] 06 Mar, 2012 [facility] [address] [id number] [address] [place] [address], [place] [address] Feb, [facility] [address] [id number] [address] [place] [address] Feb, [facility] [address] [id number] [address] [place] [address], [place] [address] Feb, [facility] [address] [id number] [address] [place] [address], [place] [address] Feb, [facility] [address] [id number] [address] [place] [address], [place] [address] Jan, [facility] [address] [id number] [address] [place] [address], [place] [address] Jan, [facility] [address] [id number] [address] [place] [address], [place] [address] Jan, [facility] [address] [id number] [address] [place] [address], [place] [address] Jan, [facility] [address] [id number] [address] [place] [address], [place] [address] Jan, [facility] [address] [id number] [address] [place] [address], [place] [address] Jan, [facility] [address] [id number] [address] [place] [address], [place] [address] Dec, [facility] [address] [id number] [address] [place] [address], [place] [address] Dec, [facility] [address] [id number] [address] [place] [address], [place] [address] Nov, [facility] [address] [id number] [address] [place] [address], [place] [address] Sep, [facility] [address] [id number] [address] [place] [address], [place] [address] August, [facility] [address] [id number] [address] [place] [address], [place] [address] August, [facility] [address] [id number] [address] [place] [address], [place] [address] August, [facility] [address] [id number] [address] [place] [address], [place] [address] 10 Aug, 2011 [facility] [address] [id number] [address] [place] [address], [place] [address] August, [facility] [address] [id number] [address] [place] [address], [place] [address] Jun, [facility] [address] [id number] [address] [place] [address], [place] [address] Jun, [facility] [address] [id number] [address] [place] [address], [place] [address] Apr, [facility] [address] [id number] [address] [place] [address], [place] [address] Apr, [facility] [address] [id number] [address] [place] [address], [place] [address] Mar, [facility] [address] [id number] [address] [place] [address], [place] [address] Feb, [facility] [address] [id number] [address] [place] [address], [place] [address] Feb, [facility] [address] [id number] [address] [place] [address], [place] [address] Feb, [facility] [address] [id number] [address] [place] [address], [place] [address] 17 Jan, 2011 [facility] [address] [id number] [address] [place] [address], [place] [address] 15 Jan, 2011 [facility] [address] [id number] [address] [place] [address], [place] [address] 15 Jan, 2011 [facility] [address] [id number] [address] [place] [address], [place] [address] 14 Jan, 2011 [facility] [address] [id number] [address] [place] [address], [place] [address] 15 May, 2010 [facility] [address] [id number] [address] [place] [address], [place] [address] Mar, [facility] [address] [facility] [id number] [address] [place] [id number] Oct, [facility] [address] [facility] [id number] [address] [place] [address] Sep, [facility] [address] [facility] [id number] [address] [place] [id number] Mar, [facility] [address] [facility] [id number] [address] [place] [phone] Jan, [facility] [address] [facility] [id number] [address] [place] [phone] Jan, [facility] [address] [facility] [id number] [address] [place] [phone] May, IMMUNIZATIONS No Known Immunizations SOCIAL HISTORY [...]
--- OUTSIDE RECORDS SUMMARY | 2019-11-23 05:40 | XMS REPORT ---
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 Active 503154746243 Problem Essential hypertension I10 Active 33289936 Problem Mixed hyperlipidemia E78.2 Active 61758651 Problem Other chronic pain G89.29 Active 8 9418287 Problem Neck pain M54.2 Active 34807936 Problem Slow transit constipation K59.01 Acti ve 81323708 Problem Anxiety F41.9 Active 12598317 Problem Hypokalemia E87.6 Active 44803170 Problem Chronic pain due to trauma G89.21 Act juanis 752065091 Problem Seasonal allergies J30.2 Active 4 46431897 Problem Rhinosinusitis J32.9 Active 92384 4004 ALLERGIES No Information ENCOUNTERS Encounter Location Date Diagnosis [place] [address] [facility] [id number] [address] [place] [id number] Jan, [facility] [address] [facility] [id number] [address] [place] [id number] Oct, Neuroforaminal stenosis of s pine M99.89 [facility] [address] [facility] [id number] [address] [place] [id number] Oct, [facility] [address] [facility] [id number] [address] [place] [id number] Oct, Right flank pain R10.9 ; Low er abdominal pain R10.30 ; Slow transit constipation K59.01 and 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 [facility] [address] [id number] [address] [place] [address] Oct, Neuroforaminal stenosis of s pine M99.89 [facility] [address] [id number] [address] [place] [phone] Oct, Neuroforaminal stenosis of s pine M99.89 ; Screening breast examination Z12.39 and Other chronic pain G89.29 [facility] [address] [id number] [address] [place] [id number] Sep, [place] [address] [facility] [id number] [address] [place] [id number] Sep, Neuroforaminal stenosis of s pine M99.89 [facility] [address] [facility] [id number] [address] [place] [id number] Sep, Encounter for laboratory luisa ting for COVID-19 virus V73.89 [place] [address] [facility] [id number] [address] [place] [phone] August, Neuroforaminal stenosis of s pine M99.89 [place] [address] [facility] [id number] [address] [place] [phone] August, Acute bacterial conjunctivit is of right eye H10.31 [facility] [address] [facility] [id number] [address] [place] [phone] August, Low back pain M54.5 ; Other chronic pain G89.29 and Dysuria R30.0 [facility] [address] [facility] [id number] [address] [place] [id number] August, [place] [address] [facility] [id number] [address] [place] [id number] Jul, Neuroforaminal stenosis of s pine M99.89 [facility] [address] [facility] [id number] [address] [place] [id number] Jul, Allergic conjunctivitis of b oth eyes H10.13 [facility] [address] [id number] [address] [place] [id number] Jun, Hypokalemia E87.6 [facility] [address] [id number] [address] [place] [id number] Jun, [facility] [address] [id number] [address] [place] [id number] Jun, Neuroforaminal stenosis of s jose M99.89 [place] [address] [id number] [address] [place] [id number] 19 Jun, 2019 Lateral epicondylitis, left elbow M77.12 and Medial epicondylitis, left elbow M77.02 [place] [address] [id number] [address] [place] [id number] 16 Jun, 2019 Foraminal stenosis of lumbar region M48.061 ; Segmental dysfunction of thoracic region M99.02 ; Segmental dysfunction of lumbar region M99.03 and Segmental dysfunction of sacral region M99.04 [place] [address] [id number] [address] [place] [id number] 28 May, 2019 Left elbow pain M25.522 [place] [address] [facility] [id number] [address] [place] [phone] May, [place] [address] [id number] [address] [place] [id number] May, Left elbow pain M25.522 [place] [address] [id number] [address] [place] [id number] May, Neuroforaminal stenosis of s jose M99.89 [facility] [address] [facility] [id number] [address] [place] [id number] 26 May, 2019 Rhinosinusitis J32.9 ; Left elbow pain M25.522 and Neck pain M54.2 [place] [address] [facility] [id number] [address] [place] [id number] 14 May, 2019 Lateral epicondylitis of lef t elbow M77.12 [facility] [address] [id number] [address] [place] [id number] Apr, Neuroforaminal stenosis of s pine M99.89 [facility] [address] [id number] [address] [place] [id number] Apr, Essential hypertension I10 a nd Mixed hyperlipidemia E78.2 [facility] [address] [id number] [address] [place] [id number] Mar, Neuroforaminal stenosis of s jose M99.89 [facility] [address] [id number] [address] [place] [id number] Mar, Epicondylitis, lateral, left M77.12 [facility] [address] [id number] [address] [place] [phone] Mar, [facility] [address] [id number] [address] [place] [id number] Mar, Neuroforaminal stenosis of s jose M99.89 [facility] [address] [id number] [address] [place] [id number] Feb, Neuroforaminal stenosis of ayla garcia M99.89 ; Essential hypertension I10 ; Mixed hyperlipidemia E78.2 ; Encounter for immunization Z23 and Seasonal allergies J30.2 [facility] [address] [id number] [address] [place] [id number] Jan, Neuroforaminal stenosis of s pine M99.89 [facility] [address] [id number] [address] [place] [id number] Dec, Neuroforaminal stenosis of s pine M99.89 [facility] [address] [id number] [address] [place] [id number] Dec, Neuroforaminal stenosis of s pine M99.89 [facility] [address] [id number] [address] [place] [id number] Nov, [facility] [address] [id number] [address] [place] [id number] Nov, Neuroforaminal stenosis of s pine M99.89 [facility] [address] [id number] [address] [place] [id number] Nov, Acute non-recurrent maxillar y sinusitis J01.00 [facility] [address] [id number] [address] [place] [id number] Oct, Hypokalemia E87.6 [facility] [address] [id number] [address] [place] [id number] Oct, Wasp sting, undetermined int ent, initial encounter T63.464A and Cellulitis of left lower extremity L03.116 [facility] [address] [id number] [address] [place] [id number] Oct, Neuroforaminal stenosis of s pine M99.89 [facility] [address] [id number] [address] [place] [phone] Sep, [facility] [address] [id number] [address] [place] [id number] Sep, [facility] [address] [id number] [address] [place] [id number] Sep, Routine screening for STI (s exually transmitted infection) Z11.3 [facility] [address] [id number] [address] [place] [id number] Sep, Routine screening for STI (s exually transmitted infection) Z11.3 ; Well woman exam with routine gynecological exam Z01.419 and Breast cancer screening Z12.39 [facility] [address] [id number] [address] [place] [id number] Sep, Neuroforaminal stenosis of s pine M99.89 [facility] [address] [id number] [address] [place] [id number] August, Neuroforaminal stenosis of s pine M99.89 [facility] [address] [id number] [address] [place] [id number] August, Neuroforaminal stenosis of s pine M99.89 ; Chronic pain due to trauma G89.21 and Mixed hyperlipidemia E78.2 [facility] [address] [id number] [address] [place] [id number] Jul, Viral upper respiratory illn ess J06.9 and Acute non-recurrent frontal sinusitis J01.10 [facility] [address] [id number] [address] [place] [phone] Jul, Congestion of nasal sinus R0 9.81 [facility] [address] [id number] [address] [place] [id number] Jul, Neuroforaminal stenosis of s pine M99.89 and Essential hypertension I10 [facility] [address] [id number] [address] [place] [id number] May, Neuroforaminal stenosis of s pine M99.89 [facility] [address] [id number] [address] [place] [id number] May, [facility] [address] [id number] [address] [place] [id number] May, Congestion of nasal sinus R0 9.81 [facility] [address] [id number] [address] [place] [id number] May, [facility] [address] [id number] [address] [place] [id number] Apr, Neuroforaminal stenosis of s pine M99.89 [facility] [address] [id number] [address] [place] [id number] Apr, Neuroforaminal stenosis of s pine M99.89 and Chronic pain due to trauma G89.21 [facility] [address] [id number] [address] [place] [id number] Mar, UTI (urinary tract infection ) N39.0 [facility] [address] [id number] [address] [place] [id number] Mar, Vertigo R42 [facility] [address] [id number] [address] [place] [id number] 03 Mar, 2018 Neuroforaminal stenosis of s jose M99.89 [facility] [address] [id number] [address] [place] [phone] Feb, Extensor tendon disruption M 67.89 [facility] [address] [id number] [address] [place] [id number] Feb, Neuroforaminal stenosis of s pine M99.89 and High risk medication use Z79.899 [facility] [address] [id number] [address] [place] [id number] Jan, Hypokalemia E87.6 [facility] [address] [id number] [address] [place] [phone] Jan, Flank pain R10.9 and Acute r ight-sided low back pain without sciatica M54.5 [facility] [address] [id number] [address] [place] [id number] Jan, Hypokalemia E87.6 [facility] [address] [id number] [address] [place] [phone] Jan, [facility] [address] [facility] [id number] [address] [place] [id number] Jan, URI, acute J06.9 [facility] [address] [id number] [address] [place] [id number] 05 Jan, 2018 Neuroforaminal stenosis of s jose M99.89 [facility] [address] [id number] [address] [place] [id number] 13 Dec, 2017 Lateral epicondylitis, right elbow M77.11 [facility] [address] [facility] [id number] [address] [place] [id number] 11 Dec, 2017 Allergic rhinitis due to monica rosalina, unspecified seasonality J30.1 and Allergic conjunctivitis of both eyes H10.13 [place] [address] [place] [id number] [address] [place] [id number] Dec, Neuroforaminal stenosis of s pine M99.89 [place] [address] [place] [id number] [address] [place] [phone] Dec, Mixed hyperlipidemia E78.2 [place] [address] [place] [id number] [place] [phone] Dec, Abnormal glucose R73.09 ; Ab normal renal ultrasound R93.429 ; Dysuria R30.0 ; Cystitis without hematuria N30.90 ; Hypokalemia E87.6 ; Mixed hyperlipidemia E78.2 and Hematuria, unspecified type R31.9 [place] [address] [place] [id number] [place] [phone] Nov, Hypokalemia E87.6 ; Mixed hy perlipidemia E78.2 and Hematuria, unspecified type R31.9 [place] [address] [place] [id number] [address] [place] [id number] Nov, [place] [address] [place] [id number] [address] [place] [id number] Nov, Hypokalemia E87.6 [place] [address] [place] [id number] [address] [place] [id number] Nov, [place] [address] [place] [id number] [address] [place] [phone] Nov, Abnormal renal ultrasound R9 3.429 [place] [address] [place] [id number] [address] [place] [phone] Nov, Abnormal renal ultrasound R9 3.429 [place] [address] [facility] [id number] [address] [place] [id number] Nov, Hematuria, unspecified type R31.9 and 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 [place] [address] [place] [id number] [address] [place] [id number] Nov, Dysuria R30.0 [facility] [address] [id number] [address] [place] [id number] Oct, Lateral epicondylitis, right elbow M77.11 [facility] [address] [id number] [address] [place] [id number] Oct, Neuroforaminal stenosis of s pine M99.89 ; Visit for TB skin test Z11.1 and Essential hypertension I10 [place] [address] [id number] [address] [place] [id number] Oct, [place] [address] [id number] [address] [place] [id number] Oct, Neuroforaminal stenosis of s pine M99.89 [place] [address] [id number] [address] [place] [phone] Oct, Visit for TB skin test Z11.1 [place] [address] [id number] [address] [place] [phone] Oct, Cystitis without hematuria N 30.90 [place] [address] [id number] [address] [place] [phone] Sep, Screening breast examination Z12.39 [place] [address] [id number] [address] [place] [id number] Sep, Dysuria R30.0 and Cystitis w ithout hematuria N30.90 [place] [address] [id number] [address] [place] [id number] Sep, Essential hypertension I10 a nd 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 [place] [address] [id number] [address] [place] [id number] Sep, Abnormal glucose R73.09 [place] [address] [id number] [address] [place] [phone] August, Lateral epicondylitis, right elbow M77.11 [facility] [address] [id number] [address] [place] [id number] August, Screen for STD (sexually tra nsmitted disease) Z11.3 [facility] [address] [id number] [address] [place] [phone] August, Neuroforaminal stenosis of s jose M99.89 ; Mixed hyperlipidemia E78.2 ; Elevated fasting glucose R73.01 ; Screening mammogram, encounter for Z12.31 and Encounter for well woman exam without gynecological exam Z00.00 [facility] [address] [id number] [address] [place] [id number] August, Neuroforaminal stenosis of s pine M99.89 [facility] [address] [id number] [address] [place] [phone] August, Essential hypertension I10 ; Hypokalemia E87.6 and Mixed hyperlipidemia E78.2 [place] [address] [id number] [address] [place] [id number] Jul, [facility] [address] [id number] [address] [place] [id number] Jul, Neuroforaminal stenosis of s jose M99.89 [facility] [address] [id number] [address] [place] [id number] Jul, Lateral epicondylitis, right elbow M77.11 [facility] [address] [id number] [address] [place] [id number] Jul, [place] [address] [id number] [address] [place] [id number] Jun, High ankle sprain of right l ower extremity, initial encounter S93.431A [place] [address] [id number] [address] [place] [id number] Jun, Essential hypertension I10 [place] [address] [facility] [id number] [address] [place] [id number] Jun, [place] [id number] [place] [phone] Jun, [place] [address] [place] [id number] [place] [address] Jun, Neuroforaminal stenosis of s pine M99.89 [place] [address] [address] Jun, Pain of right upper extremit y M79.601 and Essential hypertension I10 [place] [id number] [place] [address] Jun, [place] [address] [address] Jun, Dysuria R30.0 ; Acute cystit is with hematuria N30.01 and Screen for STD (sexually transmitted disease) Z11.[address] [address] May, Chronic pain due to trauma G 89.21 [place] [address] [place] [id number] [address] [place] [id number] May, Essential hypertension I10 [place] [id number] [place] [address] May, Neuroforaminal stenosis of s pine M99.89 [place] [address] [place] [id number] [address] [place] [address] Apr, Allergic reaction, initial e ncounter T78.40XA [place] [address] [place] [id number] [address] [place] [id number] Apr, Low back pain, unspecified b ack pain laterality, unspecified chronicity, with sciatica presence unspecified M54.5 ; Acute cystitis with hematuria N30.01 ; 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 ; Bilateral acute serous otitis media, recurrence not specified H65.03 ; Mixed hyperlipidemia E78.2 ; Essential hypertension I10 ; Immunization counseling Z71.89 and Encounter for immunization Z23 [facility] [address] [id number] [address] [place] [id number] 08 Apr, 2017 Neck pain M54.2 [facility] [address] [id number] [address] [place] [id number] Mar, Neuroforaminal stenosis of s pine M99.89 [facility] [address] [id number] [address] [place] [id number] Mar, Pharyngitis due to other org anism J02.8 [facility] [address] [id number] [address] [place] [id number] Feb, Neuroforaminal stenosis of s pine M99.89 [facility] [address] [id number] [address] [place] [id number] 08 Feb, 2017 UTI (urinary tract infection ) N39.0 [facility] [address] [id number] [address] [place] [address] Feb, Recent urinary tract infecti on Z87.440 ; 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 ; Neck pain M54.2 ; Chronic pain due to trauma G89.21 and Recurrent UTI N39.0 [facility] [address] [id number] [address] [place] [address] Feb, [facility] [address] [id number] [address] [place] [id number] Jan, Neuroforaminal stenosis of s pine M99.89 [facility] [address] [id number] [address] [place] [id number] Dec, Neuroforaminal stenosis of s pine M99.89 [facility] [address] [id number] [address] [place] [id number] 18 Dec, 2016 Acute seasonal allergic rhin itis due to pollen J30.1 [facility] [address] [id number] [address] [place] [id number] 08 Dec, 2016 [facility] [address] [id number] [address] [place] [id number] 08 Dec, 2016 Acute seasonal allergic rhin itis, unspecified trigger J30.2 ; Allergic conjunctivitis of both eyes H10.13 and Dysfunction of both eustachian tubes H69.83 [place] [address] [id number] [address] [place] [phone] 07 Dec, 2016 [place] [address] [facility] [id number] [address] [place] [id number] Dec, Nevus D22.9 [place] [address] [id number] [address] [place] [id number] Nov, Chronic pain due to trauma G 89.21 and 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 [place] [address] [id number] [address] [place] [id number] Nov, Neuroforaminal stenosis of s pine M99.89 ; Essential hypertension I10 ; Mixed hyperlipidemia E78.2 ; Hypokalemia E87.6 ; Neck pain M54.2 and Nevus D22.9 [place] [address] [id number] [address] [place] [address] Oct, Neuroforaminal stenosis of s pine M99.89 [place] [address] [id number] [address] [place] [address] Sep, Neuroforaminal stenosis of s pine M99.89 [place] [address] [id number] [address] [place] [phone] Sep, [place] [address] [id number] [address] [place] [id number] August, [place] [address] [facility] [id number] [address] [place] [id number] August, Neck pain M54.2 and Neurofor aminal stenosis of spine M99.89 [place] [address] [id number] [address] [place] [phone] August, Routine gynecological examin ation Z01.419 and Screening breast examination Z12.39 [facility] [address] [id number] [address] [place] [phone] Jul, [facility] [address] [id number] [address] [place] [id number] Jul, [facility] [address] [id number] [address] [place] [phone] Jul, Neuroforaminal stenosis of s pine M99.89 [facility] [address] [id number] [address] [place] [phone] Jul, [facility] [address] [id number] [address] [place] [id number] Jul, Neuroforaminal stenosis of l umbar 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 [facility] [address] [id number] [address] [place] [phone] Jul, [facility] [address] [id number] [address] [place] [id number] Jul, [facility] [address] [id number] [address] [place] [id number] Jun, Neuroforaminal stenosis of s pine M99.89 [facility] [address] [id number] [address] [place] [id number] Jun, Uterine leiomyoma, unspecifi ed location D25.9 and Allergic reaction caused by a drug, initial encounter T78.40XA [facility] [address] [id number] [address] [place] [phone] Jun, [facility] [address] [id number] [address] [place] [id number] May, UTI symptoms R39.9 and Pain of right sacroiliac joint M53.3 [facility] [address] [id number] [address] [place] [id number] May, Neuroforaminal stenosis of s pine M99.89 [place] [address] [id number] [address] [place] [phone] May, [facility] [address] [facility] [place] [id number] [address] [place] [id number] May, Acute mucoid otitis media of left ear H65.112 and Acute non- recurrent maxillary sinusitis J01.00 [place] [address] [id number] [address] [place] [phone] May, Acute bacterial conjunctivit is of both eyes H10.33 ; Left arm pain M79.602 and Hypokalemia E87.6 [place] [address] [id number] [address] [place] [id number] Apr, [place] [address] [facility] [id number] [address] [place] [id number] Apr, Neuroforaminal stenosis of s pine M99.89 ; Neck pain M54.2 ; Chronic pain due to trauma G89.21 ; Mixed hyperlipidemia E78.2 ; Essential hypertension I10 and Hypokalemia E87.6 [place] [address] [facility] [id number] [address] [place] [id number] Mar, Oral candidiasis B37.0 ; Nathaniel roforaminal stenosis of spine M99.89 ; Neck pain M54.2 and Chronic pain due to trauma G89.21 [place] [address] [facility] [id number] [address] [place] [id number] Feb, [place] [address] [id number] [address] [place] [id number] Feb, [place] [address] [facility] [id number] [address] [place] [id number] Feb, UTI (urinary tract infection ) N39.0 [place] [address] [facility] [id number] [address] [place] [id number] Feb, Dysuria R30.0 [place] [address] [facility] [id number] [address] [place] [phone] Feb, Dysuria R30.0 [facility] [address] [id number] [address] [place] [id number] Feb, Neuroforaminal stenosis of s pine M99.89 ; Neck pain M54.2 ; Essential hypertension I10 ; Chronic pain due to trauma G89.21 ; Dysuria R30.0 ; Abnormal MRI, shoulder R93.8 and Acute cystitis without hematuria N30.00 [facility] [address] [id number] [address] [place] [id number] Jan, [facility] [address] [id number] [address] [place] [id number] Jan, [facility] [address] [id number] [address] [place] [id number] Jan, [facility] [address] [id number] [address] [place] [id number] Jan, Abnormal MRI R93.8 [facility] [address] [id number] [address] [place] [id number] 29 Dec, 2015 [facility] [address] [id number] [address] [place] [id number] 15 Dec, 2015 Acute pain of left shoulder M25.512 [facility] [address] [id number] [address] [place] [id number] 09 Dec, 2015 [facility] [address] [id number] [address] [place] [id number] 08 Dec, 2015 [facility] [address] [id number] [address] [place] [id number] 07 Dec, 2015 Acute pain of left shoulder M25.512 [facility] [address] [id number] [address] [place] [id number] Nov, [facility] [address] [id number] [address] [place] [id number] Nov, Neuroforaminal stenosis of s pine M99.89 ; Neck pain M54.2 ; Abnormal mammogram R92.8 ; Essential hypertension I10 and Chronic pain due to trauma G89.21 [facility] [address] [id number] [address] [place] [id number] Nov, [facility] [address] [id number] [address] [place] [id number] Oct, Acute stress disorder F43.0 [facility] [address] [id number] [address] [place] [id number] Oct, [facility] [address] [id number] [address] [place] [id number] Oct, [facility] [address] [id number] [address] [place] [id number] Oct, [facility] [address] [id number] [address] [place] [id number] Sep, [facility] [address] [id number] [address] [place] [id number] August, [facility] [address] [id number] [address] [place] [id number] Jul, Neuroforaminal stenosis of s pine M99.89 ; Neck pain M54.2 ; Abnormal mammogram R92.8 and Essential hypertension I10 [facility] [address] [id number] [address] [place] [id number] Jul, [facility] [address] [id number] [address] [place] [id number] Jul, [facility] [address] [id number] [address] [place] [id number] Jul, Abnormal mammogram R92.8 [facility] [address] [id number] [address] [place] [id number] Jul, [facility] [address] [id number] [address] [place] [id number] Jul, UTI (urinary tract infection ) N39.0 [facility] [address] [id number] [address] [place] [id number] Jul, Dysuria R30.0 [facility] [address] [id number] [address] [place] [id number] Jun, [facility] [address] [facility] [id number] [address] [place] [id number] Jun, [facility] [address] [facility] [id number] [address] [place] [id number] Jun, Hypokalemia E87.6 and Hematu martina R31.9 [facility] [address] [facility] [id number] [address] [place] [id number] Jun, Hypokalemia E87.6 [facility] [address] [facility] [id number] [address] [place] [id number] Jun, [facility] [address] [facility] [id number] [address] [place] [id number] Jun, Hypokalemia E87.6 [facility] [address] [facility] [id number] [address] [place] [id number] Jun, Hypokalemia E87.6 [facility] [address] [facility] [id number] [address] [place] [id number] Jun, Neuroforaminal stenosis of s pine M99.89 ; Hypokalemia E87.6 ; Neck pain M54.2 ; Essential hypertension I10 ; Mixed hyperlipidemia E78.2 and Screening breast examination Z12.39 [facility] [address] [facility] [id number] [address] [place] [id number] Jun, Dysuria R30.0 ; UTI (urinary tract infection) N39.0 and Hematuria R31.9 [facility] [address] [facility] [id number] [address] [place] [id number] May, [facility] [address] [facility] [id number] [address] [place] [id number] May, High risk sexual behavior Z7 2.51 ; Hypokalemia E87.6 ; Neuroforaminal stenosis of spine M99.89 ; Neck pain M54.2 ; Essential hypertension I10 ; Mixed hyperlipidemia E78.2 ; STD exposure Z20.2 and Concern about STD in female without diagnosis Z71.1 [facility] [address] [id number] 16 May, 2015 Neuroforaminal stenosis of s pine M99.89 ; Neck pain M54.2 ; Hypokalemia E87.6 ; Essential hypertension I10 and Mixed hyperlipidemia E78.2 [facility] [address] [address] 11 May, 2015 [facility] [address] [place] [phone] 08 May, 2015 High risk sexual behavior Z7 2.51 ; STD exposure Z20.2 and Concern about STD in female without diagnosis Z71.1 [place] [address] [id number] May, [address] [address] Apr, Neuroforaminal stenosis of s pine M99.89 ; Mixed hyperlipidemia E78.2 ; Essential hypertension I10 and Hypokalemia E87.[address] [address] Mar, [address] [address] Mar, Hypokalemia E87.[address] [address] Mar, Neuroforaminal stenosis of s pine M99.89 ; Mixed hyperlipidemia E78.2 ; Neck pain M54.2 ; Essential hypertension I10 ; Abnormal fasting glucose R73.09 ; Hypokalemia E87.6 and Constipation K59.00 [place] [address] [facility] [id number] [address] [place] [id number] Feb, Neuroforaminal stenosis of s pine M99.89 ; Mixed hyperlipidemia E78.2 ; Neck pain M54.2 ; Essential hypertension I10 ; Abnormal fasting glucose R73.09 ; Hypokalemia E87.6 and Constipation K59.00 [place] [id number] [facility] [id number] [address] [place] [id number] Feb, Elevated fasting blood sugar R73.01 [place] [address] [facility] [id number] [address] [place] [id number] Feb, Elevated fasting blood sugar R73.01 [place] [address] [facility] [id number] [address] [place] [id number] Feb, Hair loss L65.9 [place] [address] [place] [id number] [address] [place] [phone] Feb, Sinusitis J32.9 ; Essential hypertension I10 and Hair loss L65.9 [place] [address] [facility] [id number] [address] [place] [id number] Jan, [place] [address] [place] [id number] [address] [place] [id number] Jan, Essential hypertension I10 ; Neuroforaminal stenosis of spine M99.89 ; Neck pain M54.2 ; Mixed hyperlipidemia E78.2 and Anxiety F41.9 [place] [address] [facility] [id number] [address] [place] [id number] Jan, [place] [address] [facility] [id number] [address] [place] [id number] Jan, Mixed hyperlipidemia E78.2 ; Essential (primary) hypertension I10 ; Strain of muscle, fascia and tendon at neck level, subsequent encounter S16.1XXD and Tension-type headache, unspecified, not intractable G44.209 [facility] [address] [facility] [id number] [address] [place] [id number] Dec, Lumbar back pain 724.2 and N euroforaminal stenosis of spine 724.00 [facility] [address] [id number] [address] [place] [id number] Nov, [facility] [address] [id number] [address] [place] [id number] Nov, Lumbar back pain 724.2 and N euroforaminal stenosis of spine 724.00 [facility] [address] [id number] [address] [place] [id number] Nov, Edema 782.3 ; Lumbar back pa in 724.2 ; Essential hypertension, benign 401.1 ; Hyperlipemia 272.4 ; Neuroforaminal stenosis of spine 724.00 and Post-concussion headache 339.20 [facility] [address] [id number] [address] [place] [id number] Nov, [facility] [address] [id number] [address] [place] [id number] Nov, [facility] [address] [id number] [address] [place] [id number] Oct, Essential hypertension, sheridan gn 401.1 [facility] [address] [id number] [address] [place] [id number] Oct, Edema 782.3 ; Lumbar back pa in 724.2 ; Essential hypertension, benign 401.1 ; Hyperlipemia 272.4 ; Neuroforaminal stenosis of spine 724.00 and Post-concussion headache 339.20 [facility] [address] [id number] [address] [place] [id number] Oct, [facility] [address] [id number] [address] [place] [id number] Oct, Edema 782.3 [facility] [address] [id number] [address] [place] [id number] Oct, Lumbar back pain 724.2 [facility] [address] [id number] [address] [place] [id number] Oct, Cervicalgia 723.1 ; Lumbar b ack pain 724.2 and High risk medication use V58.69 [facility] [address] [id number] [address] [place] [id number] Sep, [facility] [address] [id number] [address] [place] [id number] Sep, Lumbar strain 847.2 [facility] [address] [id number] [address] [place] [id number] August, Edema 782.3 and Eustachian t ube dysfunction 381.81 [facility] [address] [id number] [address] [place] [id number] August, [facility] [address] [facility] [id number] [address] [place] [id number] August, Eustachian tube dysfunction 381.81 [facility] [address] [id number] [address] [place] [id number] Jul, Otalgia 388.70 and Otitis me jonathon 382.9 [facility] [address] [id number] [address] [place] [id number] Jul, [facility] [address] [id number] [address] [place] [id number] Jul, [facility] [address] [id number] [address] [place] [id number] Jul, [facility] [address] [id number] [address] [place] [phone] Jul, [facility] [address] [id number] [address] [place] [phone] Jul, [facility] [address] [id number] [address] [place] [id number] Jun, [facility] [address] [id number] [address] [place] [id number] Jun, [facility] [address] [id number] [address] [place] [address], [place] [address] Jun, [facility] [address] [id number] [address] [place] [address], [place] [address] May, 2014 [facility] [address] [id number] [address] [place] [address], [place] [address] May, 2014 [facility] [address] [id number] [address] [place] [address], [place] [address] May, 2014 [facility] [address] [id number] [address] [place] [address], [place] [address] May, 2014 [facility] [address] [id number] [address] [place] [address], [place] [address] May, 2014 [facility] [address] [id number] [address] [place] [address], [place] [address] May, [facility] [address] [id number] [address] [place] [address], [place] [address] May, [facility] [address] [id number] [address] [place] [address], [place] [address] May, [facility] [address] [id number] [address] [place] [address], [place] [address] May, [facility] [address] [id number] [address] [place] [address], [place] [address] May, [facility] [address] [id number] [address] [place] [id number] Apr, [facility] [address] [id number] [address] [place] [address], [place] [address] Apr, [facility] [address] [id number] [address] [place] [address], [place] [address] Apr, [facility] [address] [id number] [address] [place] [phone] Apr, [facility] [address] [id number] [address] [place] [id number] Apr, [facility] [address] [id number] [address] [place] [address], [place] [address] Apr, [facility] [address] [id number] [address] [place] [address], [place] [address] Apr, [facility] [address] [id number] [address] [place] [address], [place] [address] Apr, [facility] [address] [id number] [address] [place] [address], [place] [address] Apr, [facility] [address] [id number] [address] [place] [address], [place] [address] Apr, [facility] [address] [id number] [address] [place] [address], [place] [address] Apr, [facility] [address] [id number] [address] [place] [address], [place] [address] Apr, [facility] [address] [id number] [address] [place] [address], [place] [address] Apr, [facility] [address] [id number] [address] [place] [address], [place] [address] Apr, [facility] [address] [id number] [address] [place] [address], [place] [address] Apr, [facility] [address] [id number] [address] [place] [address], [place] [address] Mar, [facility] [address] [id number] [address] [place] [address], [place] [address] Mar, [facility] [address] [id number] [address] [place] [address], [place] [address] Mar, [facility] [address] [id number] [address] [place] [address], [place] [address] Mar, [facility] [address] [id number] [address] [place] [address], [place] [address] Feb, [facility] [address] [id number] [address] [place] [address], [place] [address] 07 Feb, 2014 [facility] [address] [id number] [address] [place] [address], [place] [address] Feb, [facility] [address] [id number] [address] [place] [address], [place] [address] Feb, [facility] [address] [id number] [address] [place] [address], [place] [address] Jan, [facility] [address] [id number] [address] [place] [address], [place] [address] Jan, [facility] [address] [id number] [address] [place] [address], [place] [address] Jan, [facility] [address] [id number] [address] [place] [address], [place] [address] Jan, [facility] [address] [id number] [address] [place] [address], [place] [address] Jan, [facility] [address] [id number] [address] [place] [address], [place] [address] Jan, [facility] [address] [id number] [address] [place] [address], [place] [address] Jan, [facility] [address] [id number] [address] [place] [address], [place] [address] Jan, [facility] [address] [id number] [address] [place] [address], [place] [address] 29 Dec, 2013 [facility] [address] [id number] [address] [place] [address], [place] [address] 29 Dec, 2013 [facility] [address] [id number] [address] [place] [address], [place] [address] 04 Dec, 2013 [facility] [address] [id number] [address] [place] [address], [place] [address] 04 Dec, 2013 [facility] [address] [id number] [address] [place] [address], [place] [address] 14 Oct, 2013 [facility] [address] [id number] [facility] [place] [address] 14 Oct, 2013 [facility] [address] [id number] [facility] [place] [address] Oct, 2013 [facility] [address] [id number] [facility] [place] [address] Oct, 2013 [facility] [address] [id number] [address] [place] [address], [place] [address] Oct, 2013 [facility] [address] [id number] [address] [place] [address], [place] [address] Oct, 2013 [facility] [address] [id number] [address] [place] [address], [place] [address] Oct, 2013 [facility] [address] [id number] [address] [place] [address], [place] [address] Oct, [facility] [address] [id number] [address] [place] [address], [place] [address] Sep, [facility] [address] [id number] [address] [place] [address], [place] [address] Sep, [facility] [address] [id number] [address] [place] [address], [place] [address] Sep, [facility] [address] [id number] [address] [place] [address], [place] [address] Sep, [facility] [address] [id number] [address] [place] [address], [place] [address] Sep, [facility] [address] [id number] [address] [place] [address], [place] [address] Sep, [facility] [address] [id number] [address] [place] [address], [place] [address] Sep, [facility] [address] [id number] [address] [place] [address], [place] [address] Sep, [facility] [address] [id number] [address] [place] [address], [place] [address] Sep, [facility] [address] [id number] [address] [place] [address], [place] [address] Sep, [facility] [address] [id number] [address] [place] [address], [place] [address] August, [facility] [address] [id number] [address] [place] [address], [place] [address] August, [facility] [address] [id number] [address] [place] [address], [place] [address] August, [facility] [address] [id number] [address] [place] [address], [place] [address] August, [facility] [address] [id number] [address] [place] [address], [place] [address] August, [facility] [address] [id number] [address] [place] [address], [place] [address] August, [facility] [address] [id number] [address] [place] [address], [place] [address] August, [facility] [address] [id number] [address] [place] [address], [place] [address] August, [facility] [address] [id number] [address] [place] [address], [place] [address] August, [facility] [address] [id number] [address] [place] [address], [place] [address] August, [facility] [address] [id number] [address] [place] [address], [place] [address] August, [facility] [address] [id number] [address] [place] [address], [place] [address] August, [facility] [address] [id number] [address] [place] [address], [place] [address] Jul, [facility] [address] [id number] [address] [place] [address], [place] [address] Jul, [facility] [address] [id number] [address] [place] [address] Jul, [facility] [address] [id number] [facility] [place] [address] Jul, [facility] [address] [id number] [facility] [place] [address] Jul, [facility] [address] [id number] [address] [place] [address], [place] [address] Jul, [facility] [address] [id number] [address] [place] [address], [place] [address] Jun, [facility] [address] [id number] [address] [place] [address], [place] [address] Jun, [facility] [address] [id number] [address] [place] [address], [place] [address] May, [facility] [address] [id number] [address] [place] [address], [place] [address] May, [facility] [address] [id number] [address] [place] [address], [place] [address] Apr, [facility] [address] [id number] [address] [place] [address], [place] [address] Apr, [facility] [address] [id number] [address] [place] [address], [place] [address] Apr, [facility] [address] [id number] [address] [place] [address], [place] [address] Apr, [facility] [address] [id number] [address] [place] [address], [place] [address] Apr, [facility] [address] [id number] [address] [place] [address], [place] [address] Apr, [facility] [address] [id number] [address] [place] [address], [place] [address] Apr, [facility] [address] [id number] [address] [place] [address], [place] [address] Apr, [facility] [address] [id number] [address] [place] [address], [place] [address] Apr, [facility] [address] [id number] [address] [place] [address], [place] [address] Apr, [facility] [address] [id number] [address] [place] [address], [place] [address] Apr, [facility] [address] [id number] [address] [place] [address], [place] [address] Apr, [facility] [address] [id number] [address] [place] [address], [place] [address] Apr, [facility] [address] [id number] [address] [place] [address], [place] [address] Mar, [facility] [address] [id number] [address] [place] [address], [place] [address] Mar, [facility] [address] [id number] [address] [place] [address], [place] [address] Mar, [facility] [address] [id number] [address] [place] [address], [place] [address] Mar, [facility] [address] [id number] [address] [place] [address], [place] [address] Feb, [facility] [address] [id number] [address] [place] [address], [place] [address] Feb, [facility] [address] [id number] [address] [place] [address], [place] [address] Feb, [facility] [address] [id number] [address] [place] [address], [place] [address] Feb, [facility] [address] [id number] [address] [place] [address], [place] [address] Jan, [facility] [address] [id number] [address] [place] [address], [place] [address] Jan, [facility] [address] [id number] [address] [place] [address], [place] [address] Jan, [facility] [address] [id number] [address] [place] [address], [place] [address] Jan, [facility] [address] [id number] [address] [place] [address], [place] [address] Jan, [facility] [address] [id number] [address] [place] [address], [place] [address] Jan, [facility] [address] [id number] [address] [place] [address], [place] [address] Jan, [facility] [address] [id number] [address] [place] [address], [place] [address] Jan, [facility] [address] [id number] [address] [place] [address], [place] [address] Jan, [facility] [address] [id number] [address] [place] [address], [place] [address] 26 Dec, 2012 [facility] [address] [id number] [address] [place] [address], [place] [address] 16 Dec, 2012 [facility] [address] [id number] [address] [place] [address], [place] [address] 16 Dec, 2012 [facility] [address] [id number] [address] [place] [address], [place] [address] 13 Dec, 2012 [facility] [address] [id number] [address] [place] [address], [place] [address] 17 Nov, 2012 [facility] [address] [id number] [address] [place] [address], [place] [address] 17 Nov, 2012 [facility] [address] [id number] [address] [place] [address], [place] [address] 14 Nov, 2012 [facility] [address] [id number] [address] [place] [address], [place] [address] 05 Nov, 2012 [facility] [address] [id number] [address] [place] [address], [place] [address] Oct, [facility] [address] [id number] [address] [place] [address], [place] [address] Sep, [facility] [address] [id number] [address] [place] [address], [place] [address] August, [facility] [address] [id number] [address] [place] [address], [place] [address] August, [facility] [address] [id number] [address] [place] [address], [place] [address] August, [facility] [address] [id number] [address] [place] [address], [place] [address] August, [facility] [address] [id number] [address] [place] [address], [place] [address] August, [facility] [address] [id number] [address] [place] [address], [place] [address] August, [facility] [address] [id number] [address] [place] [address], [place] [address] August, [facility] [address] [id number] [address] [place] [address], [place] [address] August, [facility] [address] [id number] [address] [place] [address], [place] [address] August, [facility] [address] [id number] [address] [place] [address], [place] [address] August, [facility] [address] [id number] [address] [place] [address], [place] [address] August, [facility] [address] [id number] [address] [place] [address], [place] [address] August, [facility] [address] [id number] [address] [place] [address], [place] [address] Jul, [facility] [address] [id number] [address] [place] [address], [place] [address] Jul, [facility] [address] [id number] [address] [place] [id number] 18 Jul, 2012 [facility] [address] [id number] [address] [place] [address], [place] [address] 15 Jul, 2012 [facility] [address] [id number] [address] [place] [address], [place] [address] Jul, [facility] [address] [id number] [address] [place] [address], [place] [address] Jul, [facility] [address] [id number] [address] [place] [address], [place] [address] Jul, [facility] [address] [id number] [address] [place] [address], [place] [address] Jul, [facility] [address] [id number] [address] [place] [address], [place] [address] Jul, [facility] [address] [id number] [address] [place] [address], [place] [address] Jul, [facility] [address] [id number] [address] [place] [address], [place] [address] Jul, [facility] [address] [id number] [address] [place] [address], [place] [address] Jun, [facility] [address] [id number] [address] [place] [address], [place] [address] Jun, [facility] [address] [id number] [address] [place] [address], [place] [address] Jun, [facility] [address] [id number] [address] [place] [address], [place] [address] Jun, [facility] [address] [id number] [address] [place] [address], [place] [address] May, [facility] [address] [id number] [address] [place] [address], [place] [address] 14 May, 2012 [facility] [address] [id number] [address] [place] [address], [place] [address] 05 May, 2012 [facility] [address] [id number] [address] [place] [address], [place] [address] May, [facility] [address] [id number] [address] [place] [address], [place] [address] May, [facility] [address] [id number] [address] [place] [address], [place] [address] May, [facility] [address] [id number] [address] [place] [address], [place] [address] Apr, [facility] [address] [id number] [address] [place] [address], [place] [address] Apr, [facility] [address] [id number] [address] [place] [address], [place] [address] Apr, [facility] [address] [id number] [address] [place] [address], [place] [address] Apr, [facility] [address] [id number] [address] [place] [address], [place] [address] 15 Mar, 2012 [facility] [address] [id number] [address] [place] [address], [place] [address] Mar, [facility] [address] [id number] [address] [place] [address], [place] [address] 14 Mar, 2012 [facility] [address] [id number] [address] [place] [address], [place] [address] 14 Mar, 2012 [facility] [address] [id number] [address] [place] [address], [place] [address] 14 Mar, 2012 [facility] [address] [id number] [address] [place] [address], [place] [address] 06 Mar, 2012 [facility] [address] [id number] [address] [place] [address], [place] [address] 06 Mar, 2012 [facility] [address] [id number] [address] [place] [address], [place] [address] Feb, [facility] [address] [id number] [address] [place] [address] Feb, [facility] [address] [id number] [address] [place] [address], [place] [address] Feb, [facility] [address] [id number] [address] [place] [address], [place] [address] Feb, [facility] [address] [id number] [address] [place] [address], [place] [address] Jan, [facility] [address] [id number] [address] [place] [address], [place] [address] Jan, [facility] [address] [id number] [address] [place] [address], [place] [address] Jan, [facility] [address] [id number] [address] [place] [address], [place] [address] Jan, [facility] [address] [id number] [address] [place] [address], [place] [address] Jan, [facility] [address] [id number] [address] [place] [address], [place] [address] Jan, [facility] [address] [id number] [address] [place] [address], [place] [address] Dec, [facility] [address] [id number] [address] [place] [address], [place] [address] Dec, [facility] [address] [id number] [address] [place] [address], [place] [address] Nov, [facility] [address] [id number] [address] [place] [address], [place] [address] Sep, [facility] [address] [id number] [address] [place] [address], [place] [address] August, [facility] [address] [id number] [address] [place] [address], [place] [address] August, [facility] [address] [id number] [address] [place] [address], [place] [address] August, [facility] [address] [id number] [address] [place] [address], [place] [address] 10 Aug, 2011 [facility] [address] [id number] [address] [place] [address], [place] [address] August, [facility] [address] [id number] [address] [place] [address], [place] [address] Jun, [facility] [address] [id number] [address] [place] [address], [place] [address] Jun, [facility] [address] [id number] [address] [place] [address], [place] [address] Apr, [facility] [address] [id number] [address] [place] [address], [place] [address] Apr, [facility] [address] [id number] [address] [place] [address], [place] [address] Mar, [facility] [address] [id number] [address] [place] [address], [place] [address] Feb, [facility] [address] [id number] [address] [place] [address], [place] [address] Feb, [facility] [address] [id number] [address] [place] [address], [place] [address] Feb, [facility] [address] [id number] [address] [place] [address], [place] [address] 17 Jan, 2011 [facility] [address] [id number] [address] [place] [address], [place] [address] 15 Jan, 2011 [facility] [address] [id number] [address] [place] [address], [place] [address] 15 Jan, 2011 [facility] [address] [id number] [address] [place] [address], [place] [address] 14 Jan, 2011 [facility] [address] [id number] [address] [place] [address], [place] [address] 15 May, 2010 [facility] [address] [id number] [address] [place] [address], [place] [address] Mar, [facility] [address] [facility] [id number] [address] [place] [id number] Oct, [facility] [address] [facility] [id number] [address] [place] [id number] Sep, [facility] [address] [facility] [id number] [address] [place] [address] Mar, [facility] [address] [facility] [id number] [address] [place] [id number] Jan, [facility] [address] [facility] [id number] [address] [place] [id number] Jan, [facility] [address] [facility] [id number] [address] [place] [id number] May, IMMUNIZATIONS No Known Immunizations SOCIAL HISTORY [...] squamous atypia (no definite dyplasia). Performed at [facility] Dr[facility] Joy. Medical History Acute suppurative otitis [...]
--- OUTSIDE RECORDS SUMMARY | 2019-11-23 05:40 | XMS REPORT ---
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 Active [id number] Problem Essential hypertension I10 Active 45086915 Problem Mixed hyperlipidemia E78.2 Active 56909628 Problem Other chronic pain G89.29 Active 8 9908788 Problem Neck pain M54.2 Active 88250037 Problem Slow transit constipation K59.01 Acti ve 38920366 Problem Anxiety F41.9 Active 65401402 Problem Hypokalemia E87.6 Active 39942988 Problem Chronic pain due to trauma G89.21 Act juanis 871302317 Problem Seasonal allergies J30.2 Active 4 09580306 Problem Rhinosinusitis J32.9 Active 76795 4004 ALLERGIES No Information ENCOUNTERS Encounter Location Date Diagnosis [place] [address] [facility] [id number] [address] [place] [phone] Jan, [facility] [address] [facility] [id number] [address] [place] [phone] Oct, Neuroforaminal stenosis of s pine M99.89 [facility] [address] [facility] [id number] [address] [place] [phone] Oct, [facility] [address] [facility] [id number] [address] [place] [address] Oct, Right flank pain R10.9 ; Low er abdominal pain R10.30 ; Slow transit constipation K59.01 and 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 [facility] [address] [id number] [address] [place] [address] Oct, Neuroforaminal stenosis of s pine M99.89 [facility] [address] [id number] [address] [place] [address] Oct, Neuroforaminal stenosis of s pine M99.89 ; Screening breast examination Z12.39 and Other chronic pain G89.29 [facility] [address] [id number] [address] [place] [phone] Sep, [place] [address] [facility] [id number] [address] [place] [address] Sep, Neuroforaminal stenosis of s pine M99.89 [facility] [address] [facility] [id number] [address] [place] [phone] Sep, Encounter for laboratory luisa ting for COVID-19 virus V73.89 [place] [address] [facility] [id number] [address] [place] [address] August, Neuroforaminal stenosis of s pine M99.89 [place] [address] [facility] [id number] [address] [place] [address] August, Acute bacterial conjunctivit is of right eye H10.31 [facility] [address] [facility] [id number] [address] [place] [address] August, Low back pain M54.5 ; Other chronic pain G89.29 and Dysuria R30.0 [facility] [address] [facility] [id number] [address] [place] [phone] August, [place] [address] [facility] [id number] [address] [place] [address] Jul, Neuroforaminal stenosis of s pine M99.89 [facility] [address] [facility] [id number] [address] [place] [phone] Jul, Allergic conjunctivitis of b oth eyes H10.13 [facility] [address] [id number] [address] [place] [address] Jun, Hypokalemia E87.6 [facility] [address] [id number] [address] [place] [phone] Jun, [facility] [address] [id number] [address] [place] [address] Jun, Neuroforaminal stenosis of s jose M99.89 [place] [address] [id number] [address] [place] [phone] 19 Jun, 2019 Lateral epicondylitis, left elbow M77.12 and Medial epicondylitis, left elbow M77.02 [place] [address] [id number] [address] [place] [phone] 16 Jun, 2019 Foraminal stenosis of lumbar region M48.061 ; Segmental dysfunction of thoracic region M99.02 ; Segmental dysfunction of lumbar region M99.03 and Segmental dysfunction of sacral region M99.04 [place] [address] [id number] [address] [place] [phone] 28 May, 2019 Left elbow pain M25.522 [place] [address] [facility] [id number] [address] [place] [phone] May, [place] [address] [id number] [address] [place] [phone] May, Left elbow pain M25.522 [place] [address] [id number] [address] [place] [address] May, Neuroforaminal stenosis of s jose M99.89 [facility] [address] [facility] [id number] [address] [place] [phone] 26 May, 2019 Rhinosinusitis J32.9 ; Left elbow pain M25.522 and Neck pain M54.2 [place] [address] [facility] [id number] [address] [place] [phone] 14 May, 2019 Lateral epicondylitis of lef t elbow M77.12 [facility] [address] [id number] [address] [place] [address] Apr, Neuroforaminal stenosis of s pine M99.89 [facility] [address] [id number] [address] [place] [phone] Apr, Essential hypertension I10 a nd Mixed hyperlipidemia E78.2 [facility] [address] [id number] [address] [place] [address] Mar, Neuroforaminal stenosis of s jose M99.89 [facility] [address] [id number] [address] [place] [address] Mar, Epicondylitis, lateral, left M77.12 [facility] [address] [id number] [address] [place] [address] Mar, [facility] [address] [id number] [address] [place] [address] Mar, Neuroforaminal stenosis of s jose M99.89 [facility] [address] [id number] [address] [place] [address] Feb, Neuroforaminal stenosis of ayla garcia M99.89 ; Essential hypertension I10 ; Mixed hyperlipidemia E78.2 ; Encounter for immunization Z23 and Seasonal allergies J30.2 [facility] [address] [id number] [address] [place] [phone] Jan, Neuroforaminal stenosis of s pine M99.89 [facility] [address] [id number] [address] [place] [address] Dec, Neuroforaminal stenosis of s pine M99.89 [facility] [address] [id number] [address] [place] [address] Dec, Neuroforaminal stenosis of s pine M99.89 [facility] [address] [id number] [address] [place] [phone] Nov, [facility] [address] [id number] [address] [place] [id number] Nov, Neuroforaminal stenosis of s pine M99.89 [facility] [address] [id number] [address] [place] [phone] Nov, Acute non-recurrent maxillar y sinusitis J01.00 [facility] [address] [id number] [address] [place] [address] Oct, Hypokalemia E87.6 [facility] [address] [id number] [address] [place] [phone] Oct, Wasp sting, undetermined int ent, initial encounter T63.464A and Cellulitis of left lower extremity L03.116 [facility] [address] [id number] [address] [place] [address] Oct, Neuroforaminal stenosis of s pine M99.89 [facility] [address] [id number] [address] [place] [phone] Sep, [facility] [address] [id number] [address] [place] [phone] Sep, [facility] [address] [id number] [address] [place] [phone] Sep, Routine screening for STI (s exually transmitted infection) Z11.3 [facility] [address] [id number] [address] [place] [phone] Sep, Routine screening for STI (s exually transmitted infection) Z11.3 ; Well woman exam with routine gynecological exam Z01.419 and Breast cancer screening Z12.39 [facility] [address] [id number] [address] [place] [phone] Sep, Neuroforaminal stenosis of s pine M99.89 [facility] [address] [id number] [address] [place] [phone] August, Neuroforaminal stenosis of s pine M99.89 [facility] [address] [id number] [address] [place] [address] August, Neuroforaminal stenosis of s pine M99.89 ; Chronic pain due to trauma G89.21 and Mixed hyperlipidemia E78.2 [facility] [address] [id number] [address] [place] [phone] Jul, Viral upper respiratory illn ess J06.9 and Acute non-recurrent frontal sinusitis J01.10 [facility] [address] [id number] [address] [place] [phone] Jul, Congestion of nasal sinus R0 9.81 [facility] [address] [id number] [address] [place] [phone] Jul, Neuroforaminal stenosis of s pine M99.89 and Essential hypertension I10 [facility] [address] [id number] [address] [place] [address] May, Neuroforaminal stenosis of s pine M99.89 [facility] [address] [id number] [address] [place] [id number] May, [facility] [address] [id number] [address] [place] [phone] May, Congestion of nasal sinus R0 9.81 [facility] [address] [id number] [address] [place] [phone] May, [facility] [address] [id number] [address] [place] [phone] Apr, Neuroforaminal stenosis of s pine M99.89 [facility] [address] [id number] [address] [place] [address] Apr, Neuroforaminal stenosis of s pine M99.89 and Chronic pain due to trauma G89.21 [facility] [address] [id number] [address] [place] [phone] Mar, UTI (urinary tract infection ) N39.0 [facility] [address] [id number] [address] [place] [phone] Mar, Vertigo R42 [facility] [address] [id number] [address] [place] [phone] 03 Mar, 2018 Neuroforaminal stenosis of s jose M99.89 [facility] [address] [id number] [address] [place] [phone] Feb, Extensor tendon disruption M 67.89 [facility] [address] [id number] [address] [place] [phone] Feb, Neuroforaminal stenosis of s pine M99.89 and High risk medication use Z79.899 [facility] [address] [id number] [address] [place] [phone] Jan, Hypokalemia E87.6 [facility] [address] [id number] [address] [place] [id number] Jan, Flank pain R10.9 and Acute r ight-sided low back pain without sciatica M54.5 [facility] [address] [id number] [address] [place] [phone] Jan, Hypokalemia E87.6 [facility] [address] [id number] [address] [place] [phone] Jan, [facility] [address] [facility] [id number] [address] [place] [phone] Jan, URI, acute J06.9 [facility] [address] [id number] [address] [place] [phone] 05 Jan, 2018 Neuroforaminal stenosis of s jose M99.89 [facility] [address] [id number] [address] [place] [id number] 13 Dec, 2017 Lateral epicondylitis, right elbow M77.11 [facility] [address] [facility] [id number] [address] [place] [phone] 11 Dec, 2017 Allergic rhinitis due to monica rosalina, unspecified seasonality J30.1 and Allergic conjunctivitis of both eyes H10.13 [place] [address] [place] [id number] [address] [place] [address] Dec, Neuroforaminal stenosis of s pine M99.89 [place] [address] [place] [id number] [address] [place] [address] Dec, Mixed hyperlipidemia E78.2 [place] [address] [place] [id number] [place] [address] Dec, Abnormal glucose R73.09 ; Ab normal renal ultrasound R93.429 ; Dysuria R30.0 ; Cystitis without hematuria N30.90 ; Hypokalemia E87.6 ; Mixed hyperlipidemia E78.2 and Hematuria, unspecified type R31.9 [place] [address] [place] [id number] [place] [address] Nov, Hypokalemia E87.6 ; Mixed hy perlipidemia E78.2 and Hematuria, unspecified type R31.9 [place] [address] [place] [id number] [address] [place] [phone] Nov, [place] [address] [place] [id number] [address] [place] [phone] Nov, Hypokalemia E87.6 [place] [address] [place] [id number] [address] [place] [phone] Nov, [place] [address] [place] [id number] [address] [place] [phone] Nov, Abnormal renal ultrasound R9 3.429 [place] [address] [place] [id number] [address] [place] [phone] Nov, Abnormal renal ultrasound R9 3.429 [place] [address] [facility] [id number] [address] [place] [phone] Nov, Hematuria, unspecified type R31.9 and Neuroforaminal stenosis of spine M99.89 [place] [address] [place] [id number] [address] [place] [phone] Nov, Dysuria R30.0 [facility] [address] [id number] [address] [place] [address] Oct, Lateral epicondylitis, right elbow M77.11 [facility] [address] [id number] [address] [place] [address] Oct, Neuroforaminal stenosis of s pine M99.89 ; Visit for TB skin test Z11.1 and Essential hypertension I10 [place] [address] [id number] [address] [place] [address] Oct, [place] [address] [id number] [address] [place] [phone] Oct, Neuroforaminal stenosis of s pine M99.89 [place] [address] [id number] [address] [place] [address] Oct, Visit for TB skin test Z11.1 [place] [address] [id number] [address] [place] [address] Oct, Cystitis without hematuria N 30.90 [place] [address] [id number] [address] [place] [address] Sep, Screening breast examination Z12.39 [place] [address] [id number] [address] [place] [phone] Sep, Dysuria R30.0 and Cystitis w ithout hematuria N30.90 [place] [address] [id number] [address] [place] [address] Sep, Essential hypertension I10 a nd 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 [place] [address] [id number] [address] [place] [phone] Sep, Abnormal glucose R73.09 [place] [address] [id number] [address] [place] [phone] August, Lateral epicondylitis, right elbow M77.11 [facility] [address] [id number] [address] [place] [address] August, Screen for STD (sexually tra nsmitted disease) Z11.3 [facility] [address] [id number] [address] [place] [phone] August, Neuroforaminal stenosis of s jose M99.89 ; Mixed hyperlipidemia E78.2 ; Elevated fasting glucose R73.01 ; Screening mammogram, encounter for Z12.31 and Encounter for well woman exam without gynecological exam Z00.00 [facility] [address] [id number] [address] [place] [phone] August, Neuroforaminal stenosis of s pine M99.89 [facility] [address] [id number] [address] [place] [address] August, Essential hypertension I10 ; Hypokalemia E87.6 and Mixed hyperlipidemia E78.2 [place] [address] [id number] [address] [place] [address] Jul, [facility] [address] [id number] [address] [place] [address] Jul, Neuroforaminal stenosis of s jose M99.89 [facility] [address] [id number] [address] [place] [address] Jul, Lateral epicondylitis, right elbow M77.11 [facility] [address] [id number] [address] [place] [phone] Jul, [place] [address] [id number] [address] [place] [address] Jun, High ankle sprain of right l ower extremity, initial encounter S93.431A [place] [address] [id number] [address] [place] [address] Jun, Essential hypertension I10 [place] [address] [facility] [id number] [address] [place] [address] Jun, [place] [id number] [place] [address] Jun, [place] [address] [place] [id number] [place] [address] Jun, Neuroforaminal stenosis of s pine M99.89 [place] [address] [address] Jun, Pain of right upper extremit y M79.601 and Essential hypertension I10 [place] [id number] [place] [address] Jun, [place] [address] [address] Jun, Dysuria R30.0 ; Acute cystit is with hematuria N30.01 and Screen for STD (sexually transmitted disease) Z11.[address] [address] May, Chronic pain due to trauma G 89.21 [place] [address] [place] [id number] [address] [place] [address] May, Essential hypertension I10 [place] [id number] [place] [address] May, Neuroforaminal stenosis of s pine M99.89 [place] [address] [place] [id number] [address] [place] [address] Apr, Allergic reaction, initial e ncounter T78.40XA [place] [address] [place] [id number] [address] [place] [address] Apr, Low back pain, unspecified b ack pain laterality, unspecified chronicity, with sciatica presence unspecified M54.5 ; Acute cystitis with hematuria N30.01 ; 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 ; Bilateral acute serous otitis media, recurrence not specified H65.03 ; Mixed hyperlipidemia E78.2 ; Essential hypertension I10 ; Immunization counseling Z71.89 and Encounter for immunization Z23 [facility] [address] [id number] [address] [place] [id number] 08 Apr, 2017 Neck pain M54.2 [facility] [address] [id number] [address] [place] [phone] Mar, Neuroforaminal stenosis of s pine M99.89 [facility] [address] [id number] [address] [place] [address] Mar, Pharyngitis due to other org anism J02.8 [facility] [address] [id number] [address] [place] [address] Feb, Neuroforaminal stenosis of s pine M99.89 [facility] [address] [id number] [address] [place] [phone] 08 Feb, 2017 UTI (urinary tract infection ) N39.0 [facility] [address] [id number] [address] [place] [address] Feb, Recent urinary tract infecti on Z87.440 ; 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 ; Neck pain M54.2 ; Chronic pain due to trauma G89.21 and Recurrent UTI N39.0 [facility] [address] [id number] [address] [place] [phone] Feb, [facility] [address] [id number] [address] [place] [phone] Jan, Neuroforaminal stenosis of s pine M99.89 [facility] [address] [id number] [address] [place] [phone] Dec, Neuroforaminal stenosis of s pine M99.89 [facility] [address] [id number] [address] [place] [id number] 18 Dec, 2016 Acute seasonal allergic rhin itis due to pollen J30.1 [facility] [address] [id number] [address] [place] [id number] 08 Dec, 2016 [facility] [address] [id number] [address] [place] [phone] 08 Dec, 2016 Acute seasonal allergic rhin itis, unspecified trigger J30.2 ; Allergic conjunctivitis of both eyes H10.13 and Dysfunction of both eustachian tubes H69.83 [place] [address] [id number] [address] [place] [id number] 07 Dec, 2016 [place] [address] [facility] [id number] [address] [place] [address] Dec, Nevus D22.9 [place] [address] [id number] [address] [place] [phone] Nov, Chronic pain due to trauma G 89.21 and 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 [place] [address] [id number] [address] [place] [phone] Nov, Neuroforaminal stenosis of s pine M99.89 ; Essential hypertension I10 ; Mixed hyperlipidemia E78.2 ; Hypokalemia E87.6 ; Neck pain M54.2 and Nevus D22.9 [place] [address] [id number] [address] [place] [phone] Oct, Neuroforaminal stenosis of s pine M99.89 [place] [address] [id number] [address] [place] [phone] Sep, Neuroforaminal stenosis of s pine M99.89 [place] [address] [id number] [address] [place] [phone] Sep, [place] [address] [id number] [address] [place] [phone] August, [place] [address] [facility] [id number] [address] [place] [phone] August, Neck pain M54.2 and Neurofor aminal stenosis of spine M99.89 [place] [address] [id number] [address] [place] [phone] August, Routine gynecological examin ation Z01.419 and Screening breast examination Z12.39 [facility] [address] [id number] [address] [place] [phone] Jul, [facility] [address] [id number] [address] [place] [phone] Jul, [facility] [address] [id number] [address] [place] [phone] Jul, Neuroforaminal stenosis of s pine M99.89 [facility] [address] [id number] [address] [place] [phone] Jul, [facility] [address] [id number] [address] [place] [phone] Jul, Neuroforaminal stenosis of l umbar 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 [facility] [address] [id number] [address] [place] [phone] Jul, [facility] [address] [id number] [address] [place] [phone] Jul, [facility] [address] [id number] [address] [place] [phone] Jun, Neuroforaminal stenosis of s pine M99.89 [facility] [address] [id number] [address] [place] [phone] Jun, Uterine leiomyoma, unspecifi ed location D25.9 and Allergic reaction caused by a drug, initial encounter T78.40XA [facility] [address] [id number] [address] [place] [id number] Jun, [facility] [address] [id number] [address] [place] [phone] May, UTI symptoms R39.9 and Pain of right sacroiliac joint M53.3 [facility] [address] [id number] [address] [place] [phone] May, Neuroforaminal stenosis of s pine M99.89 [place] [address] [id number] [address] [place] [address] May, [facility] [address] [facility] [id number] [address] [place] [phone] May, Acute mucoid otitis media of left ear H65.112 and Acute non- recurrent maxillary sinusitis J01.00 [place] [address] [id number] [address] [place] [phone] May, Acute bacterial conjunctivit is of both eyes H10.33 ; Left arm pain M79.602 and Hypokalemia E87.6 [place] [address] [id number] [address] [place] [address] Apr, [place] [address] [facility] [id number] [address] [place] [address] Apr, Neuroforaminal stenosis of s pine M99.89 ; Neck pain M54.2 ; Chronic pain due to trauma G89.21 ; Mixed hyperlipidemia E78.2 ; Essential hypertension I10 and Hypokalemia E87.6 [place] [address] [facility] [id number] [address] [place] [id number] Mar, Oral candidiasis B37.0 ; Nathaniel roforaminal stenosis of spine M99.89 ; Neck pain M54.2 and Chronic pain due to trauma G89.21 [place] [address] [facility] [id number] [address] [place] [phone] Feb, [place] [address] [id number] [address] [place] [phone] Feb, [place] [address] [facility] [id number] [address] [place] [address] Feb, UTI (urinary tract infection ) N39.0 [place] [address] [facility] [id number] [address] [place] [address] Feb, Dysuria R30.0 [place] [address] [facility] [id number] [address] [place] [address] Feb, Dysuria R30.0 [facility] [address] [id number] [address] [place] [address] Feb, Neuroforaminal stenosis of s pine M99.89 ; Neck pain M54.2 ; Essential hypertension I10 ; Chronic pain due to trauma G89.21 ; Dysuria R30.0 ; Abnormal MRI, shoulder R93.8 and Acute cystitis without hematuria N30.00 [facility] [address] [id number] [address] [place] [phone] Jan, [facility] [address] [id number] [address] [place] [phone] Jan, [facility] [address] [id number] [address] [place] [phone] Jan, [facility] [address] [id number] [address] [place] [address] Jan, Abnormal MRI R93.8 [facility] [address] [id number] [address] [place] [phone] 29 Dec, 2015 [facility] [address] [id number] [address] [place] [id number] 15 Dec, 2015 Acute pain of left shoulder M25.512 [facility] [address] [id number] [address] [place] [id number] 09 Dec, 2015 [facility] [address] [id number] [address] [place] [phone] 08 Dec, 2015 [facility] [address] [id number] [address] [place] [phone] 07 Dec, 2015 Acute pain of left shoulder M25.512 [facility] [address] [id number] [address] [place] [phone] Nov, [facility] [address] [id number] [address] [place] [address] Nov, Neuroforaminal stenosis of s pine M99.89 ; Neck pain M54.2 ; Abnormal mammogram R92.8 ; Essential hypertension I10 and Chronic pain due to trauma G89.21 [facility] [address] [id number] [address] [place] [address] Nov, [facility] [address] [id number] [address] [place] [phone] Oct, Acute stress disorder F43.0 [facility] [address] [id number] [address] [place] [phone] Oct, [facility] [address] [id number] [address] [place] [address] Oct, [facility] [address] [id number] [address] [place] [phone] Oct, [facility] [address] [id number] [address] [place] [address] Sep, [facility] [address] [id number] [address] [place] [phone] August, [facility] [address] [id number] [address] [place] [phone] Jul, Neuroforaminal stenosis of s pine M99.89 ; Neck pain M54.2 ; Abnormal mammogram R92.8 and Essential hypertension I10 [facility] [address] [id number] [address] [place] [phone] Jul, [facility] [address] [id number] [address] [place] [phone] Jul, [facility] [address] [id number] [address] [place] [phone] Jul, Abnormal mammogram R92.8 [facility] [address] [id number] [address] [place] [address] Jul, [facility] [address] [id number] [address] [place] [phone] Jul, UTI (urinary tract infection ) N39.0 [facility] [address] [id number] [address] [place] [phone] Jul, Dysuria R30.0 [facility] [address] [id number] [address] [place] [phone] Jun, [facility] [address] [facility] [id number] [address] [place] [phone] Jun, [facility] [address] [facility] [id number] [address] [place] [phone] Jun, Hypokalemia E87.6 and Hematu martina R31.9 [facility] [address] [facility] [id number] [address] [place] [address] Jun, Hypokalemia E87.6 [facility] [address] [facility] [id number] [address] [place] [phone] Jun, [facility] [address] [facility] [id number] [address] [place] [phone] Jun, Hypokalemia E87.6 [facility] [address] [facility] [id number] [address] [place] [phone] Jun, Hypokalemia E87.6 [facility] [address] [facility] [id number] [address] [place] [address] Jun, Neuroforaminal stenosis of s pine M99.89 ; Hypokalemia E87.6 ; Neck pain M54.2 ; Essential hypertension I10 ; Mixed hyperlipidemia E78.2 and Screening breast examination Z12.39 [facility] [address] [facility] [id number] [address] [place] [phone] Jun, Dysuria R30.0 ; UTI (urinary tract infection) N39.0 and Hematuria R31.9 [facility] [address] [facility] [id number] [address] [place] [phone] May, [facility] [address] [facility] [id number] [address] [place] [address] May, High risk sexual behavior Z7 2.51 ; Hypokalemia E87.6 ; Neuroforaminal stenosis of spine M99.89 ; Neck pain M54.2 ; Essential hypertension I10 ; Mixed hyperlipidemia E78.2 ; STD exposure Z20.2 and Concern about STD in female without diagnosis Z71.1 [facility] [address] [address] 16 May, 2015 Neuroforaminal stenosis of s pine M99.89 ; Neck pain M54.2 ; Hypokalemia E87.6 ; Essential hypertension I10 and Mixed hyperlipidemia E78.2 [facility] [address] [phone] 11 May, 2015 [facility] [address] [place] [address] 08 May, 2015 High risk sexual behavior Z7 2.51 ; STD exposure Z20.2 and Concern about STD in female without diagnosis Z71.1 [place] [address] [address] May, [address] [address] Apr, Neuroforaminal stenosis of s pine M99.89 ; Mixed hyperlipidemia E78.2 ; Essential hypertension I10 and Hypokalemia E87.[address] [address] Mar, [address] [address] Mar, Hypokalemia E87.[address] [address] Mar, Neuroforaminal stenosis of s pine M99.89 ; Mixed hyperlipidemia E78.2 ; Neck pain M54.2 ; Essential hypertension I10 ; Abnormal fasting glucose R73.09 ; Hypokalemia E87.6 and Constipation K59.00 [place] [address] [facility] [id number] [address] [place] [phone] Feb, Neuroforaminal stenosis of s pine M99.89 ; Mixed hyperlipidemia E78.2 ; Neck pain M54.2 ; Essential hypertension I10 ; Abnormal fasting glucose R73.09 ; Hypokalemia E87.6 and Constipation K59.00 [place] [address] [facility] [id number] [address] [place] [id number] Feb, Elevated fasting blood sugar R73.01 [place] [address] [facility] [id number] [address] [place] [phone] Feb, Elevated fasting blood sugar R73.01 [place] [address] [facility] [id number] [address] [place] [address] Feb, Hair loss L65.9 [place] [address] [place] [id number] [address] [place] [phone] Feb, Sinusitis J32.9 ; Essential hypertension I10 and Hair loss L65.9 [place] [address] [facility] [id number] [address] [place] [phone] Jan, [place] [address] [place] [id number] [address] [place] [address] Jan, Essential hypertension I10 ; Neuroforaminal stenosis of spine M99.89 ; Neck pain M54.2 ; Mixed hyperlipidemia E78.2 and Anxiety F41.9 [place] [address] [facility] [id number] [address] [place] [phone] Jan, [place] [address] [facility] [id number] [address] [place] [address] Jan, Mixed hyperlipidemia E78.2 ; Essential (primary) hypertension I10 ; Strain of muscle, fascia and tendon at neck level, subsequent encounter S16.1XXD and Tension-type headache, unspecified, not intractable G44.209 [facility] [address] [facility] [id number] [address] [place] [address] Dec, Lumbar back pain 724.2 and N euroforaminal stenosis of spine 724.00 [facility] [address] [id number] [address] [place] [address] Nov, [facility] [address] [id number] [address] [place] [address] Nov, Lumbar back pain 724.2 and N euroforaminal stenosis of spine 724.00 [facility] [address] [id number] [address] [place] [phone] Nov, Edema 782.3 ; Lumbar back pa in 724.2 ; Essential hypertension, benign 401.1 ; Hyperlipemia 272.4 ; Neuroforaminal stenosis of spine 724.00 and Post-concussion headache 339.20 [facility] [address] [id number] [address] [place] [phone] Nov, [facility] [address] [id number] [address] [place] [phone] Nov, [facility] [address] [id number] [address] [place] [phone] Oct, Essential hypertension, sheridan gn 401.1 [facility] [address] [id number] [address] [place] [phone] Oct, Edema 782.3 ; Lumbar back pa in 724.2 ; Essential hypertension, benign 401.1 ; Hyperlipemia 272.4 ; Neuroforaminal stenosis of spine 724.00 and Post-concussion headache 339.20 [facility] [address] [id number] [address] [place] [phone] Oct, [facility] [address] [id number] [address] [place] [id number] Oct, Edema 782.3 [facility] [address] [id number] [address] [place] [phone] Oct, Lumbar back pain 724.2 [facility] [address] [id number] [address] [place] [phone] Oct, Cervicalgia 723.1 ; Lumbar b ack pain 724.2 and High risk medication use V58.69 [facility] [address] [id number] [address] [place] [phone] Sep, [facility] [address] [id number] [address] [place] [id number] Sep, Lumbar strain 847.2 [facility] [address] [id number] [address] [place] [address] August, Edema 782.3 and Eustachian t ube dysfunction 381.81 [facility] [address] [id number] [address] [place] [id number] August, [facility] [address] [facility] [id number] [address] [place] [id number] August, Eustachian tube dysfunction 381.81 [facility] [address] [id number] [address] [place] [address] Jul, Otalgia 388.70 and Otitis me jonathon 382.9 [facility] [address] [id number] [address] [place] [phone] Jul, [facility] [address] [id number] [address] [place] [id number] Jul, [facility] [address] [id number] [address] [place] [phone] Jul, [facility] [address] [id number] [address] [place] [phone] Jul, [facility] [address] [id number] [address] [place] [phone] Jul, [facility] [address] [id number] [address] [place] [phone] Jun, [facility] [address] [id number] [address] [place] [phone] Jun, [facility] [address] [id number] [address] [place] [address], [place] [address] Jun, [facility] [address] [id number] [address] [place] [address], [place] [address] May, 2014 [facility] [address] [id number] [address] [place] [address], [place] [address] May, 2014 [facility] [address] [id number] [address] [place] [address], [place] [address] May, 2014 [facility] [address] [id number] [address] [place] [address], [place] [address] May, 2014 [facility] [address] [id number] [address] [place] [address], [place] [address] May, 2014 [facility] [address] [id number] [address] [place] [address], [place] [address] May, [facility] [address] [id number] [address] [place] [address], [place] [address] May, [facility] [address] [id number] [address] [place] [address], [place] [address] May, [facility] [address] [id number] [address] [place] [address], [place] [address] May, [facility] [address] [id number] [address] [place] [address], [place] [address] May, [facility] [address] [id number] [address] [place] [phone] Apr, [facility] [address] [id number] [address] [place] [address], [place] [address] Apr, [facility] [address] [id number] [address] [place] [address], [place] [address] Apr, [facility] [address] [id number] [address] [place] [phone] Apr, [facility] [address] [id number] [address] [place] [phone] Apr, [facility] [address] [id number] [address] [place] [address], [place] [address] Apr, [facility] [address] [id number] [address] [place] [address], [place] [address] Apr, [facility] [address] [id number] [address] [place] [address], [place] [address] Apr, [facility] [address] [id number] [address] [place] [address], [place] [address] Apr, [facility] [address] [id number] [address] [place] [address], [place] [address] Apr, [facility] [address] [id number] [address] [place] [address], [place] [address] Apr, [facility] [address] [id number] [address] [place] [address], [place] [address] Apr, [facility] [address] [id number] [address] [place] [address], [place] [address] Apr, [facility] [address] [id number] [address] [place] [address], [place] [address] Apr, [facility] [address] [id number] [address] [place] [address], [place] [address] Apr, [facility] [address] [id number] [address] [place] [address], [place] [address] Mar, [facility] [address] [id number] [address] [place] [address], [place] [address] Mar, [facility] [address] [id number] [address] [place] [address], [place] [address] Mar, [facility] [address] [id number] [address] [place] [address], [place] [address] Mar, [facility] [address] [id number] [address] [place] [address], [place] [address] Feb, [facility] [address] [id number] [address] [place] [address], [place] [address] 07 Feb, 2014 [facility] [address] [id number] [address] [place] [address], [place] [address] Feb, [facility] [address] [id number] [address] [place] [address], [place] [address] Feb, [facility] [address] [id number] [address] [place] [address], [place] [address] Jan, [facility] [address] [id number] [address] [place] [address], [place] [address] Jan, [facility] [address] [id number] [address] [place] [address], [place] [address] Jan, [facility] [address] [id number] [address] [place] [address], [place] [address] Jan, [facility] [address] [id number] [address] [place] [address], [place] [address] Jan, [facility] [address] [id number] [address] [place] [address], [place] [address] Jan, [facility] [address] [id number] [address] [place] [address], [place] [address] Jan, [facility] [address] [id number] [address] [place] [address], [place] [address] Jan, [facility] [address] [id number] [address] [place] [address], [place] [address] 29 Dec, 2013 [facility] [address] [id number] [address] [place] [address], [place] [address] 29 Dec, 2013 [facility] [address] [id number] [address] [place] [address], [place] [address] 04 Dec, 2013 [facility] [address] [id number] [address] [place] [address], [place] [address] 04 Dec, 2013 [facility] [address] [id number] [address] [place] [address], [place] [address] 14 Oct, 2013 [facility] [address] [id number] [facility] [place] [address] 14 Oct, 2013 [facility] [address] [id number] [facility] [place] [address] Oct, 2013 [facility] [address] [id number] [facility] [place] [address] Oct, 2013 [facility] [address] [id number] [address] [place] [address], [place] [address] Oct, 2013 [facility] [address] [id number] [address] [place] [address], [place] [address] Oct, 2013 [facility] [address] [id number] [address] [place] [address], [place] [address] Oct, 2013 [facility] [address] [id number] [address] [place] [address], [place] [address] Oct, [facility] [address] [id number] [address] [place] [address], [place] [address] Sep, [facility] [address] [id number] [address] [place] [address], [place] [address] Sep, [facility] [address] [id number] [address] [place] [address], [place] [address] Sep, [facility] [address] [id number] [address] [place] [address], [place] [address] Sep, [facility] [address] [id number] [address] [place] [address], [place] [address] Sep, [facility] [address] [id number] [address] [place] [address], [place] [address] Sep, [facility] [address] [id number] [address] [place] [address], [place] [address] Sep, [facility] [address] [id number] [address] [place] [address], [place] [address] Sep, [facility] [address] [id number] [address] [place] [address], [place] [address] Sep, [facility] [address] [id number] [address] [place] [address], [place] [address] Sep, [facility] [address] [id number] [address] [place] [address], [place] [address] August, [facility] [address] [id number] [address] [place] [address], [place] [address] August, [facility] [address] [id number] [address] [place] [address], [place] [address] August, [facility] [address] [id number] [address] [place] [address], [place] [address] August, [facility] [address] [id number] [address] [place] [address], [place] [address] August, [facility] [address] [id number] [address] [place] [address], [place] [address] August, [facility] [address] [id number] [address] [place] [address], [place] [address] August, [facility] [address] [id number] [address] [place] [address], [place] [address] August, [facility] [address] [id number] [address] [place] [address], [place] [address] August, [facility] [address] [id number] [address] [place] [address], [place] [address] August, [facility] [address] [id number] [address] [place] [address], [place] [address] August, [facility] [address] [id number] [address] [place] [address], [place] [address] August, [facility] [address] [id number] [address] [place] [address], [place] [address] Jul, [facility] [address] [id number] [address] [place] [address], [place] [address] Jul, [facility] [address] [id number] [facility] [place] [address] Jul, [facility] [address] [id number] [facility] [place] [address] Jul, [facility] [address] [id number] [facility] [place] [address] Jul, [facility] [address] [id number] [address] [place] [address], [place] [address] Jul, [facility] [address] [id number] [address] [place] [address], [place] [address] Jun, [facility] [address] [id number] [address] [place] [address], [place] [address] Jun, [facility] [address] [id number] [address] [place] [address], [place] [address] May, [facility] [address] [id number] [address] [place] [address], [place] [address] May, [facility] [address] [id number] [address] [place] [address], [place] [address] Apr, [facility] [address] [id number] [address] [place] [address], [place] [address] Apr, [facility] [address] [id number] [address] [place] [address], [place] [address] Apr, [facility] [address] [id number] [address] [place] [address], [place] [address] Apr, [facility] [address] [id number] [address] [place] [address], [place] [address] Apr, [facility] [address] [id number] [address] [place] [address], [place] [address] Apr, [facility] [address] [id number] [address] [place] [address], [place] [address] Apr, [facility] [address] [id number] [address] [place] [address], [place] [address] Apr, [facility] [address] [id number] [address] [place] [address], [place] [address] Apr, [facility] [address] [id number] [address] [place] [address], [place] [address] Apr, [facility] [address] [id number] [address] [place] [address], [place] [address] Apr, [facility] [address] [id number] [address] [place] [address], [place] [address] Apr, [facility] [address] [id number] [address] [place] [address], [place] [address] Apr, [facility] [address] [id number] [address] [place] [address], [place] [address] Mar, [facility] [address] [id number] [address] [place] [address], [place] [address] Mar, [facility] [address] [id number] [address] [place] [address], [place] [address] Mar, [facility] [address] [id number] [address] [place] [address], [place] [address] Mar, [facility] [address] [id number] [address] [place] [address], [place] [address] Feb, [facility] [address] [id number] [address] [place] [address], [place] [address] Feb, [facility] [address] [id number] [address] [place] [address], [place] [address] Feb, [facility] [address] [id number] [address] [place] [address], [place] [address] Feb, [facility] [address] [id number] [address] [place] [address], [place] [address] Jan, [facility] [address] [id number] [address] [place] [address], [place] [address] Jan, [facility] [address] [id number] [address] [place] [address], [place] [address] Jan, [facility] [address] [id number] [address] [place] [address], [place] [address] Jan, [facility] [address] [id number] [address] [place] [address], [place] [address] Jan, [facility] [address] [id number] [address] [place] [address], [place] [address] Jan, [facility] [address] [id number] [address] [place] [address], [place] [address] Jan, [facility] [address] [id number] [address] [place] [address], [place] [address] Jan, [facility] [address] [id number] [address] [place] [address], [place] [address] Jan, [facility] [address] [id number] [address] [place] [address], [place] [address] 26 Dec, 2012 [facility] [address] [id number] [address] [place] [address], [place] [address] 16 Dec, 2012 [facility] [address] [id number] [address] [place] [address], [place] [address] 16 Dec, 2012 [facility] [address] [id number] [address] [place] [address], [place] [address] 13 Dec, 2012 [facility] [address] [id number] [address] [place] [address], [place] [address] 17 Nov, 2012 [facility] [address] [id number] [address] [place] [address], [place] [address] 17 Nov, 2012 [facility] [address] [id number] [address] [place] [address], [place] [address] 14 Nov, 2012 [facility] [address] [id number] [address] [place] [address], [place] [address] 05 Nov, 2012 [facility] [address] [id number] [address] [place] [address], [place] [address] Oct, [facility] [address] [id number] [address] [place] [address], [place] [address] Sep, [facility] [address] [id number] [address] [place] [address], [place] [address] August, [facility] [address] [id number] [address] [place] [address], [place] [address] August, [facility] [address] [id number] [address] [place] [address], [place] [address] August, [facility] [address] [id number] [address] [place] [address], [place] [address] August, [facility] [address] [id number] [address] [place] [address], [place] [address] August, [facility] [address] [id number] [address] [place] [address], [place] [address] August, [facility] [address] [id number] [address] [place] [address], [place] [address] August, [facility] [address] [id number] [address] [place] [address], [place] [address] August, [facility] [address] [id number] [address] [place] [address], [place] [address] August, [facility] [address] [id number] [address] [place] [address], [place] [address] August, [facility] [address] [id number] [address] [place] [address], [place] [address] August, [facility] [address] [id number] [address] [place] [address], [place] [address] August, [facility] [address] [id number] [address] [place] [address], [place] [address] Jul, [facility] [address] [id number] [address] [place] [address], [place] [address] Jul, [facility] [address] [id number] [address] [place] [address] 18 Jul, 2012 [facility] [address] [id number] [address] [place] [address], [place] [address] 15 Jul, 2012 [facility] [address] [id number] [address] [place] [address], [place] [address] Jul, [facility] [address] [id number] [address] [place] [address], [place] [address] Jul, [facility] [address] [id number] [address] [place] [address], [place] [address] Jul, [facility] [address] [id number] [address] [place] [address], [place] [address] Jul, [facility] [address] [id number] [address] [place] [address], [place] [address] Jul, [facility] [address] [id number] [address] [place] [address], [place] [address] Jul, [facility] [address] [id number] [address] [place] [address], [place] [address] Jul, [facility] [address] [id number] [address] [place] [address], [place] [address] Jun, [facility] [address] [id number] [address] [place] [address], [place] [address] Jun, [facility] [address] [id number] [address] [place] [address], [place] [address] Jun, [facility] [address] [id number] [address] [place] [address], [place] [address] Jun, [facility] [address] [id number] [address] [place] [address], [place] [address] May, [facility] [address] [id number] [address] [place] [address], [place] [address] 14 May, 2012 [facility] [address] [id number] [address] [place] [address], [place] [address] 05 May, 2012 [facility] [address] [id number] [address] [place] [address], [place] [address] May, [facility] [address] [id number] [address] [place] [address], [place] [address] May, [facility] [address] [id number] [address] [place] [address], [place] [address] May, [facility] [address] [id number] [address] [place] [address], [place] [address] Apr, [facility] [address] [id number] [address] [place] [address], [place] [address] Apr, [facility] [address] [id number] [address] [place] [address], [place] [address] Apr, [facility] [address] [id number] [address] [place] [address], [place] [address] Apr, [facility] [address] [id number] [address] [place] [address], [place] [address] 15 Mar, 2012 [facility] [address] [id number] [address] [place] [address], [place] [address] Mar, [facility] [address] [id number] [address] [place] [address], [place] [address] 14 Mar, 2012 [facility] [address] [id number] [address] [place] [address], [place] [address] 14 Mar, 2012 [facility] [address] [id number] [address] [place] [address], [place] [address] 14 Mar, 2012 [facility] [address] [id number] [address] [place] [address], [place] [address] 06 Mar, 2012 [facility] [address] [id number] [address] [place] [address], [place] [address] 06 Mar, 2012 [facility] [address] [id number] [address] [place] [address], [place] [address] Feb, [facility] [address] [id number] [address] [place] [address] Feb, [facility] [address] [id number] [address] [place] [address], [place] [address] Feb, [facility] [address] [id number] [address] [place] [address], [place] [address] Feb, [facility] [address] [id number] [address] [place] [address], [place] [address] Jan, [facility] [address] [id number] [address] [place] [address], [place] [address] Jan, [facility] [address] [id number] [address] [place] [address], [place] [address] Jan, [facility] [address] [id number] [address] [place] [address], [place] [address] Jan, [facility] [address] [id number] [address] [place] [address], [place] [address] Jan, [facility] [address] [id number] [address] [place] [address], [place] [address] Jan, [facility] [address] [id number] [address] [place] [address], [place] [address] Dec, [facility] [address] [id number] [address] [place] [address], [place] [address] Dec, [facility] [address] [id number] [address] [place] [address], [place] [address] Nov, [facility] [address] [id number] [address] [place] [address], [place] [address] Sep, [facility] [address] [id number] [address] [place] [address], [place] [address] August, [facility] [address] [id number] [address] [place] [address], [place] [address] August, [facility] [address] [id number] [address] [place] [address], [place] [address] August, [facility] [address] [id number] [address] [place] [address], [place] [address] 10 Aug, 2011 [facility] [address] [id number] [address] [place] [address], [place] [address] August, [facility] [address] [id number] [address] [place] [address], [place] [address] Jun, [facility] [address] [id number] [address] [place] [address], [place] [address] Jun, [facility] [address] [id number] [address] [place] [address], [place] [address] Apr, [facility] [address] [id number] [address] [place] [address], [place] [address] Apr, [facility] [address] [id number] [address] [place] [address], [place] [address] Mar, [facility] [address] [id number] [address] [place] [address], [place] [address] Feb, [facility] [address] [id number] [address] [place] [address], [place] [address] Feb, [facility] [address] [id number] [address] [place] [address], [place] [address] Feb, [facility] [address] [id number] [address] [place] [address], [place] [address] 17 Jan, 2011 [facility] [address] [id number] [address] [place] [address], [place] [address] 15 Jan, 2011 [facility] [address] [id number] [address] [place] [address], [place] [address] 15 Jan, 2011 [facility] [address] [id number] [address] [place] [address], [place] [address] 14 Jan, 2011 [facility] [address] [id number] [address] [place] [address], [place] [address] 15 May, 2010 [facility] [address] [id number] [address] [place] [address], [place] [address] Mar, [facility] [address] [facility] [id number] [address] [place] [address] Oct, [facility] [address] [facility] [id number] [address] [place] [address] Sep, [facility] [address] [facility] [id number] [address] [place] [address] Mar, [facility] [address] [facility] [id number] [address] [place] [address] Jan, [facility] [address] [facility] [id number] [address] [place] [address] Jan, [facility] [address] [facility] [id number] [address] [place] [address] May, IMMUNIZATIONS No Known Immunizations SOCIAL HISTORY Never Assessed REASON FOR VISIT PLAN OF CARE VITAL SIGNS Height 62 in 2012-07-09 Weight 173.56 lbs 2012-07-09 Temperature 97.5 degrees Fahrenheit 2012-07-09 Heart Rate 78 bpm 2012-07-09 Respiratory Rate 18 2012-07-09 Blood pressure systolic 134 mmHg 2012-07-09 Blood pressure diastolic 90 mmHg 2012-07-09 MEDICATIONS Unknown Medications RESULTS No Results PROCEDURES Procedure Date Ordered Result Body Site CULTURE, BACTERIA, OTHER July 09, 2012 INSTRUCTIONS MEDICATIONS ADMINISTERED No Known Medications [...]
--- OUTSIDE RECORDS SUMMARY | 2019-11-23 05:41 | XMS REPORT ---
Author Author Liana Coe Doctor Organization [facility] Address Unknown Phone Unavailable Care Team Providers Care Associate Java Developer Name Role Phone Migration, Doctor Unavailable Unavailable PROBLEMS Type Condition ICD9-CM Code YUV80-LE Code Onset Dates Condition S tatus SNOMED Code Problem Hematuria, unspecified type R31.9 Ac tive 98218627 Problem Abnormal glucose R73.09 Active 102 620466 Problem Anxiety F41.9 Active 89062701 Problem Neck pain M54.2 Active 02178363 Problem Essential hypertension I10 Active 19212099 Problem Rhinosinusitis J32.9 Active 81042 4004 Problem Neuroforaminal stenosis of spine M99.89 Active [id number] Problem Other chronic pain G89.29 Active 8 0628328 Problem Abnormal renal ultrasound R93.429 Acti ve [id number] Problem Mixed hyperlipidemia E78.2 Active 23757471 Problem Hypokalemia E87.6 Active 90209669 Problem Chronic pain due to trauma G89.21 Act juanis 317952601 Problem Seasonal allergies J30.2 Active 4 [id number] ALLERGIES No Information ENCOUNTERS Encounter Location Date Diagnosis [facility] [address] [facility] [id number] [address] [place] [phone] 07 Jan, 2020 [facility] [address] [facility] [id number] [address] [place] [id number] 07 Oct, 2019 Neuroforaminal stenosis of s pine M99.89 ; Screening breast examination Z12.39 and Other chronic pain G89.29 [facility] [address] [facility] [id number] [address] [place] [phone] Sep, [facility] [address] [facility] [id number] [address] [place] [phone] Sep, Neuroforaminal stenosis of s pine M99.89 [facility] [address] [facility] [id number] [address] [place] [phone] Sep, Encounter for laboratory luisa hidalgo for COVID-19 virus V73.89 [facility] [address] [id number] [address] [place] [phone] August, Neuroforaminal stenosis of s jose M99.89 [facility] [address] [id number] [address] [place] [id number] August, Acute bacterial conjunctivit is of right eye H10.31 [facility] [address] [id number] [address] [place] [phone] August, Low back pain M54.5 ; Other chronic pain G89.29 and Dysuria R30.0 [place] [address] [id number] [address] [place] [phone] August, [place] [address] [facility] [id number] [address] [place] [phone] Jul, Neuroforaminal stenosis of s jose M99.89 [place] [address] [id number] [address] [place] [phone] Jul, Allergic conjunctivitis of b oth eyes H10.13 [place] [address] [id number] [address] [place] [phone] Jun, Hypokalemia E87.6 [place] [address] [id number] [address] [place] [id number] Jun, [place] [address] [id number] [address] [place] [phone] Jun, Neuroforaminal stenosis of s jose M99.89 [facility] [address] [id number] [address] [place] [id number] 19 Jun, 2019 Lateral epicondylitis, left elbow M77.12 and Medial epicondylitis, left elbow M77.02 [place] [address] [id number] [address] [place] [id number] 16 Jun, 2019 Foraminal stenosis of lumbar region M48.061 ; Segmental dysfunction of thoracic region M99.02 ; Segmental dysfunction of lumbar region M99.03 and Segmental dysfunction of sacral region M99.04 [facility] [address] [id number] [address] [place] [phone] 28 May, 2019 Left elbow pain M25.522 [facility] [address] [id number] [address] [place] [phone] May, [facility] [address] [id number] [address] [place] [id number] May, Left elbow pain M25.522 [facility] [address] [id number] [address] [place] [phone] May, Neuroforaminal stenosis of s pine M99.89 [place] [address] [id number] [address] [place] [phone] May, Rhinosinusitis J32.9 ; Left elbow pain M25.522 and Neck pain M54.2 [place] [address] [id number] [address] [place] [id number] 14 May, 2019 Lateral epicondylitis of lef t elbow M77.12 [place] [address] [id number] [address] [place] [phone] Apr, Neuroforaminal stenosis of s pine M99.89 [place] [address] [facility] [id number] [address] [place] [phone] Apr, Essential hypertension I10 a nd Mixed hyperlipidemia E78.2 [facility] [address] [id number] [address] [place] [phone] Mar, Neuroforaminal stenosis of s pine M99.89 [facility] [address] [id number] [address] [place] [phone] Mar, Epicondylitis, lateral, left M77.12 [facility] [address] [id number] [address] [place] [phone] Mar, [place] [address] [facility] [id number] [address] [place] [phone] Mar, Neuroforaminal stenosis of s pine M99.89 [facility] [address] [facility] [id number] [address] [place] [phone] Feb, Neuroforaminal stenosis of s pine M99.89 ; Essential hypertension I10 ; Mixed hyperlipidemia E78.2 ; Encounter for immunization Z23 and Seasonal allergies J30.2 [facility] [address] [facility] [id number] [address] [place] [phone] Jan, Neuroforaminal stenosis of s pine M99.89 [place] [address] [facility] [id number] [address] [place] [phone] Dec, Neuroforaminal stenosis of s pine M99.89 [place] [address] [place] [id number] [address] [place] [phone] Dec, Neuroforaminal stenosis of s pine M99.89 [facility] [address] [facility] [id number] [address] [place] [phone] Nov, [place] [address] [place] [id number] [address] [place] [id number] Nov, Neuroforaminal stenosis of s pine M99.89 [facility] [address] [place] [id number] [address] [place] [phone] Nov, Acute non-recurrent maxillar y sinusitis J01.00 [facility] [address] [place] [id number] [address] [place] [phone] Oct, Hypokalemia E87.6 [facility] [address] [facility] [id number] [address] [place] [phone] Oct, Wasp sting, undetermined int ent, initial encounter T63.464A and Cellulitis of left lower extremity L03.116 [facility] [address] [place] [id number] [address] [place] [phone] Oct, Neuroforaminal stenosis of s pine M99.89 [place] [address] [id number] [address] [place] [phone] Sep, [place] [address] [id number] [address] [place] [phone] 24 Sep, 2018 [place] [address] [facility] [id number] [address] [place] [phone] 18 Sep, 2018 Routine screening for STI (s exually transmitted infection) Z11.3 [place] [address] [id number] [address] [place] [phone] 14 Sep, 2018 Routine screening for STI (s exually transmitted infection) Z11.3 ; Well woman exam with routine gynecological exam Z01.419 and Breast cancer screening Z12.39 [place] [address] [facility] [id number] [address] [place] [phone] 10 Sep, 2018 Neuroforaminal stenosis of s pine M99.89 [place] [address] [facility] [id number] [address] [place] [phone] August, Neuroforaminal stenosis of s pine M99.89 [place] [address] [facility] [id number] [address] [place] [phone] August, Neuroforaminal stenosis of s pine M99.89 ; Chronic pain due to trauma G89.21 and Mixed hyperlipidemia E78.2 [place] [address] [facility] [id number] [address] [place] [phone] Jul, Viral upper respiratory illn ess J06.9 and Acute non-recurrent frontal sinusitis J01.10 [place] [address] [facility] [id number] [address] [place] [phone] Jul, Congestion of nasal sinus R0 9.81 [place] [address] [facility] [id number] [address] [place] [id number] Jul, Neuroforaminal stenosis of s pine M99.89 and Essential hypertension I10 [place] [address] [facility] [id number] [address] [place] [phone] May, Neuroforaminal stenosis of s pine M99.89 [facility] [address] [id number] [address] [place] [phone] May, [facility] [address] [id number] [address] [place] [phone] May, Congestion of nasal sinus R0 9.81 [facility] [address] [id number] [address] [place] [phone] May, [facility] [address] [id number] [address] [place] [id number] Apr, Neuroforaminal stenosis of s pine M99.89 [facility] [address] [id number] [address] [place] [phone] Apr, Neuroforaminal stenosis of s pine M99.89 and Chronic pain due to trauma G89.21 [facility] [address] [id number] [address] [place] [phone] Mar, UTI (urinary tract infection ) N39.0 [facility] [address] [id number] [address] [place] [phone] Mar, Vertigo R42 [facility] [address] [facility] [id number] [address] [place] [id number] Mar, Neuroforaminal stenosis of s pine M99.89 [facility] [address] [id number] [address] [place] [phone] Feb, Extensor tendon disruption M 67.89 [facility] [address] [id number] [address] [place] [phone] Feb, Neuroforaminal stenosis of s pine M99.89 and High risk medication use Z79.899 [facility] [address] [id number] [address] [place] [phone] Jan, Hypokalemia E87.6 [facility] [address] [facility] [id number] [address] [place] [phone] Jan, Flank pain R10.9 and Acute r ight-sided low back pain without sciatica M54.5 [place] [address] [phone] Jan, Hypokalemia E87.6 [place] [address] [id number] Jan, [place] [address] [phone] Jan, URI, acute J06.9 [place] [address] [phone] Jan, Neuroforaminal stenosis of s jose M99.89 [place] [address] [phone] 13 Dec, 2017 Lateral epicondylitis, right elbow M77.11 [place] [address] [phone] 11 Dec, 2017 Allergic rhinitis due to monica rosalnia, unspecified seasonality J30.1 and Allergic conjunctivitis of both eyes H10.13 [place] [address] [phone] 10 Dec, 2017 Neuroforaminal stenosis of s pine M99.89 [place] [address] [address] Dec, Mixed hyperlipidemia E78.2 [place] [address] [id number] 05 Dec, 2017 Abnormal glucose R73.09 ; Ab normal renal ultrasound R93.429 ; Dysuria R30.0 ; Cystitis without hematuria N30.90 ; Hypokalemia E87.6 ; Mixed hyperlipidemia E78.2 and Hematuria, unspecified type R31.9 [place] [address] [address] Nov, Hypokalemia E87.6 ; Mixed hy perlipidemia E78.2 and Hematuria, unspecified type R31.9 [facility] [address] [id number] [address] [place] [phone] Nov, [facility] [address] [id number] [address] [place] [phone] Nov, Hypokalemia E87.6 [facility] [address] [id number] [address] [place] [phone] Nov, [facility] [address] [id number] [address] [place] [phone] Nov, Abnormal renal ultrasound R9 3.429 [place] [address] [id number] [address] [place] [phone] Nov, Abnormal renal ultrasound R9 3.429 [place] [address] [id number] [address] [place] [phone] Nov, Hematuria, unspecified type R31.9 and 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 [place] [address] [id number] [address] [place] [phone] Nov, Dysuria R30.0 [place] [address] [id number] [address] [place] [phone] Oct, Lateral epicondylitis, right elbow M77.11 [place] [address] [id number] [address] [place] [phone] Oct, Neuroforaminal stenosis of s pine M99.89 ; Visit for TB skin test Z11.1 and Essential hypertension I10 [place] [address] [id number] [address] [place] [phone] Oct, [place] [address] [id number] [address] [place] [phone] Oct, Neuroforaminal stenosis of s pine M99.89 [place] [address] [facility] [id number] [address] [place] [phone] 10 Oct, 2017 Visit for TB skin test Z11.1 [place] [address] [id number] [address] [place] [phone] 05 Oct, 2017 Cystitis without hematuria N 30.90 [place] [address] [id number] [address] [place] [phone] 28 Sep, 2017 Screening breast examination Z12.39 [place] [address] [id number] [address] [place] [phone] 26 Sep, 2017 Dysuria R30.0 and Cystitis w ithout hematuria N30.90 [place] [address] [id number] [address] [place] [id number] 14 Sep, 2017 Essential hypertension I10 a nd 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 [place] [address] [id number] [address] [place] [phone] 04 Sep, 2017 Abnormal glucose R73.09 [place] [address] [facility] [id number] [address] [place] [phone] August, Lateral epicondylitis, right elbow M77.11 [place] [address] [facility] [id number] [address] [place] [phone] August, Screen for STD (sexually tra nsmitted disease) Z11.3 [place] [address] [facility] [id number] [address] [place] [phone] August, Neuroforaminal stenosis of s pine M99.89 ; Mixed hyperlipidemia E78.2 ; Elevated fasting glucose R73.01 ; Screening mammogram, encounter for Z12.31 and Encounter for well woman exam without gynecological exam Z00.00 [place] [address] [id number] [address] [place] [phone] August, Neuroforaminal stenosis of s pine M99.89 [place] [address] [facility] [id number] [address] [place] [phone] August, Essential hypertension I10 ; Hypokalemia E87.6 and Mixed hyperlipidemia E78.2 [facility] [address] [id number] [address] [place] [phone] Jul, [facility] [address] [id number] [address] [place] [phone] Jul, Neuroforaminal stenosis of s jose M99.89 [facility] [address] [id number] [address] [place] [phone] Jul, Lateral epicondylitis, right elbow M77.11 [facility] [address] [id number] [address] [place] [phone] Jul, [facility] [address] [id number] [address] [place] [phone] Jun, High ankle sprain of right l ower extremity, initial encounter S93.431A [place] [address] [id number] [address] [place] [phone] Jun, Essential hypertension I10 [facility] [address] [id number] [address] [place] [phone] Jun, [facility] [address] [id number] [address] [place] [phone] Jun, [facility] [address] [id number] [address] [place] [phone] Jun, Neuroforaminal stenosis of s pine M99.89 [facility] [address] [id number] [address] [place] [phone] Jun, Pain of right upper extremit y M79.601 and Essential hypertension I10 [facility] [address] [id number] [address] [place] [phone] Jun, [place] [address] [id number] [address] [place] [phone] Jun, Dysuria R30.0 ; Acute cystit is with hematuria N30.01 and Screen for STD (sexually transmitted disease) Z11.3 [place] [address] [phone] May, Chronic pain due to trauma G 89.21 [place] [address] [phone] May, Essential hypertension I10 [place] [address] [address] May, Neuroforaminal stenosis of s pine M99.89 [place] [address] [address] Apr, Allergic reaction, initial e ncounter T78.40XA [place] [address] [address] Apr, Low back pain, unspecified b ack pain laterality, unspecified chronicity, with sciatica presence unspecified M54.5 ; Acute cystitis with hematuria N30.01 ; Neuroforaminal stenosis of 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 ; Bilateral acute serous otitis media, recurrence not specified H65.03 ; Mixed hyperlipidemia E78.2 ; Essential hypertension I10 ; Immunization counseling Z71.89 and Encounter for immunization Z23 [place] [address] [address] Apr, Neck pain M54.2 [place] [address] [address] Mar, Neuroforaminal stenosis of s pine M99.89 [place] [address] [place] [id number] [address] [place] [phone] Mar, Pharyngitis due to other org anism J02.8 [place] [address] [address] Feb, Neuroforaminal stenosis of s pine M99.89 [place] [address] [id number] 08 Feb, 2017 UTI (urinary tract infection ) N39.0 [place] [address] [place] [id number] [address] [place] [id number] 07 Feb, 2017 Recent urinary tract infecti on Z87.440 ; Neuroforaminal stenosis of spine M99.89 ; Neck pain M54.2 ; Chronic pain due to trauma G89.21 and Recurrent UTI N39.0 [facility] [address] [id number] [address] [place] [phone] Feb, [facility] [address] [id number] [address] [place] [phone] Jan, Neuroforaminal stenosis of s pine M99.89 [facility] [address] [id number] [address] [place] [phone] Dec, Neuroforaminal stenosis of s pine M99.89 [facility] [address] [id number] [address] [place] [id number] 18 Dec, 2016 Acute seasonal allergic rhin itis due to pollen J30.1 [facility] [address] [id number] [address] [place] [phone] 08 Dec, 2016 [facility] [address] [id number] [address] [place] [id number] 08 Dec, 2016 Acute seasonal allergic rhin itis, unspecified trigger J30.2 ; Allergic conjunctivitis of both eyes H10.13 and Dysfunction of both eustachian tubes H69.83 [facility] [address] [id number] [address] [place] [phone] Dec, [facility] [address] [id number] [address] [place] [phone] Dec, Nevus D22.9 [facility] [address] [id number] [address] [place] [phone] Nov, Chronic pain due to trauma G 89.21 and Neuroforaminal stenosis of spine M99.89 [facility] [address] [id number] [address] [place] [phone] Nov, Neuroforaminal stenosis of s pine M99.89 ; Essential hypertension I10 ; Mixed hyperlipidemia E78.2 ; Hypokalemia E87.6 ; Neck pain M54.2 and Nevus D22.9 [facility] [address] [id number] [address] [place] [phone] Oct, Neuroforaminal stenosis of s pine M99.89 [facility] [address] [id number] [address] [place] [phone] Sep, Neuroforaminal stenosis of s pine M99.89 [facility] [address] [id number] [address] [place] [phone] Sep, [facility] [address] [id number] [address] [place] [phone] August, [facility] [address] [id number] [address] [place] [phone] August, Neck pain M54.2 and Neurofor aminal stenosis of spine M99.89 [facility] [address] [id number] [address] [place] [phone] August, Routine gynecological examin ation Z01.419 and Screening breast examination Z12.39 [facility] [address] [id number] [address] [place] [id number] Jul, [facility] [address] [id number] [address] [place] [id number] Jul, [facility] [address] [id number] [address] [place] [phone] Jul, Neuroforaminal stenosis of s pine M99.89 [facility] [address] [id number] [address] [place] [phone] Jul, [facility] [address] [id number] [address] [place] [phone] Jul, Neuroforaminal stenosis of l umbar 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 [facility] [address] [id number] [address] [place] [phone] Jul, [facility] [address] [facility] [id number] [address] [place] [phone] Jul, [facility] [address] [facility] [id number] [address] [place] [phone] Jun, Neuroforaminal stenosis of s jose M99.89 [facility] [address] [facility] [id number] [address] [place] [phone] Jun, Uterine leiomyoma, unspecifi ed location D25.9 and Allergic reaction caused by a drug, initial encounter T78.40XA [facility] [address] [facility] [id number] [address] [place] [phone] Jun, [facility] [address] [facility] [id number] [address] [place] [phone] May, UTI symptoms R39.9 and Pain of right sacroiliac joint M53.3 [place] [address] [address] [place] [id number] [address] [place] [phone] May, Neuroforaminal stenosis of s pine M99.89 [place] [address] [facility] [id number] [address] [place] [phone] May, [facility] [address] [facility] [id number] [address] [place] [phone] May, Acute mucoid otitis media of left ear H65.112 and Acute non- recurrent maxillary sinusitis J01.00 [place] [address] [address] [place] [id number] [address] [place] [id number] May, Acute bacterial conjunctivit is of both eyes H10.33 ; Left arm pain M79.602 and Hypokalemia E87.6 [place] [address] [address] [facility] [id number] [address] [place] [phone] Apr, [facility] [address] [facility] [id number] [address] [place] [id number] Apr, Neuroforaminal stenosis of s pine M99.89 ; Neck pain M54.2 ; Chronic pain due to trauma G89.21 ; Mixed hyperlipidemia E78.2 ; Essential hypertension I10 and Hypokalemia E87.6 [facility] [address] [facility] [id number] [address] [place] [phone] Mar, Oral candidiasis B37.0 ; Nathaniel roforaminal stenosis of spine M99.89 ; Neck pain M54.2 and Chronic pain due to trauma G89.21 [facility] [address] [id number] [address] [place] [phone] Feb, [facility] [address] [id number] [address] [place] [id number] Feb, [facility] [address] [facility] [id number] [address] [place] [phone] Feb, UTI (urinary tract infection ) N39.0 [facility] [address] [place] [id number] [address] [place] [address] Feb, Dysuria R30.0 [facility] [address] [facility] [id number] [address] [place] [phone] Feb, Dysuria R30.0 [facility] [address] [facility] [id number] [address] [place] [phone] Feb, Neuroforaminal stenosis of s pine M99.89 ; Neck pain M54.2 ; Essential hypertension I10 ; Chronic pain due to trauma G89.21 ; Dysuria R30.0 ; Abnormal MRI, shoulder R93.8 and Acute cystitis without hematuria N30.00 [facility] [address] [facility] [id number] [address] [place] [phone] Jan, [facility] [address] [facility] [id number] [address] [place] [phone] Jan, [facility] [address] [facility] [id number] [address] [place] [id number] Jan, [facility] [address] [facility] [id number] [address] [place] [phone] Jan, Abnormal MRI R93.8 [facility] [address] [id number] [address] [place] [id number] 29 Dec, 2015 [facility] [address] [id number] [address] [place] [id number] 15 Dec, 2015 Acute pain of left shoulder M25.512 [facility] [address] [id number] [address] [place] [phone] 09 Dec, 2015 [facility] [address] [id number] [address] [place] [id number] 08 Dec, 2015 [facility] [address] [id number] [address] [place] [phone] 07 Dec, 2015 Acute pain of left shoulder M25.512 [facility] [address] [id number] [address] [place] [phone] Nov, [facility] [address] [id number] [address] [place] [phone] Nov, Neuroforaminal stenosis of s pine M99.89 ; Neck pain M54.2 ; Abnormal mammogram R92.8 ; Essential hypertension I10 and Chronic pain due to trauma G89.21 [facility] [address] [id number] [address] [place] [phone] Nov, [facility] [address] [id number] [address] [place] [phone] Oct, Acute stress disorder F43.0 [facility] [address] [id number] [address] [place] [phone] Oct, [facility] [address] [id number] [address] [place] [phone] Oct, [facility] [address] [id number] [address] [place] [phone] Oct, [facility] [address] [id number] [address] [place] [phone] Sep, [facility] [address] [id number] [address] [place] [phone] August, [facility] [address] [id number] [address] [place] [id number] Jul, Neuroforaminal stenosis of s pine M99.89 ; Neck pain M54.2 ; Abnormal mammogram R92.8 and Essential hypertension I10 [facility] [address] [id number] [address] [place] [phone] Jul, [facility] [address] [id number] [address] [place] [phone] Jul, [facility] [address] [id number] [address] [place] [id number] Jul, Abnormal mammogram R92.8 [facility] [address] [id number] [address] [place] [phone] Jul, [facility] [address] [facility] [id number] [address] [place] [phone] Jul, UTI (urinary tract infection ) N39.0 [facility] [address] [id number] [address] [place] [phone] Jul, Dysuria R30.0 [facility] [address] [id number] [address] [place] [phone] Jun, [facility] [address] [id number] [address] [place] [phone] Jun, [facility] [address] [id number] [address] [place] [phone] Jun, Hypokalemia E87.6 and Hematu martina R31.9 [facility] [address] [id number] [address] [place] [phone] Jun, Hypokalemia E87.6 [facility] [address] [id number] [address] [place] [phone] Jun, [facility] [address] [address] Jun, Hypokalemia E87.6 [place] [address] [address] Jun, Hypokalemia E87.6 [place] [address] [address] Jun, Neuroforaminal stenosis of s pine M99.89 ; Hypokalemia E87.6 ; Neck pain M54.2 ; Essential hypertension I10 ; Mixed hyperlipidemia E78.2 and Screening breast examination Z12.39 [place] [address] [address] Jun, Dysuria R30.0 ; UTI (urinary tract infection) N39.0 and Hematuria R31.[address] [address] May, [facility] [address] [address] May, High risk sexual behavior Z7 2.51 ; Hypokalemia E87.6 ; Neuroforaminal stenosis of spine M99.89 ; Neck pain M54.2 ; Essential hypertension I10 ; Mixed hyperlipidemia E78.2 ; STD exposure Z20.2 and Concern about STD in female without diagnosis Z71.1 [place] [address] [phone] 16 May, 2015 Neuroforaminal stenosis of s pine M99.89 ; Neck pain M54.2 ; Hypokalemia E87.6 ; Essential hypertension I10 and Mixed hyperlipidemia E78.2 [place] [address] [address] May, [facility] [address] [place] [id number] [address] [place] [id number] 08 May, 2015 High risk sexual behavior Z7 2.51 ; STD exposure Z20.2 and Concern about STD in female without diagnosis Z71.1 [place] [address] [address] May, [place] [address] [address] Apr, Neuroforaminal stenosis of s pine M99.89 ; Mixed hyperlipidemia E78.2 ; Essential hypertension I10 and Hypokalemia E87.6 [place] [address] [address] Mar, [place] [address] [address] Mar, Hypokalemia E87.6 [place] [address] [address] Mar, Neuroforaminal stenosis of s pine M99.89 ; Mixed hyperlipidemia E78.2 ; Neck pain M54.2 ; Essential hypertension I10 ; Abnormal fasting glucose R73.09 ; Hypokalemia E87.6 and Constipation K59.00 [place] [address] [address] Feb, Neuroforaminal stenosis of s pine M99.89 ; Mixed hyperlipidemia E78.2 ; Neck pain M54.2 ; Essential hypertension I10 ; Abnormal fasting glucose R73.09 ; Hypokalemia E87.6 and Constipation K59.00 [place] [address] [address] Feb, Elevated fasting blood sugar R73.01 [place] [address] [address] Feb, Elevated fasting blood sugar R73.01 [place] [address] [address] Feb, Hair loss L65.9 [place] [address] [address] Feb, Sinusitis J32.9 ; Essential hypertension I10 and Hair loss L65.9 [facility] [address] [id number] [address] [place] [phone] Jan, [facility] [address] [id number] [address] [place] [phone] Jan, Essential hypertension I10 ; Neuroforaminal stenosis of spine M99.89 ; Neck pain M54.2 ; Mixed hyperlipidemia E78.2 and Anxiety F41.9 [place] [address] [id number] [address] [place] [phone] Jan, [place] [address] [facility] [id number] [place] [address] Jan, Mixed hyperlipidemia E78.2 ; Essential (primary) hypertension I10 ; Strain of muscle, fascia and tendon at neck level, subsequent encounter S16.1XXD and Tension-type headache, unspecified, not intractable G44.209 [place] [address] [id number] [address] [place] [phone] Dec, Lumbar back pain 724.2 and N euroforaminal stenosis of spine 724.00 [place] [address] [id number] [address] [place] [phone] Nov, [place] [address] [id number] [address] [place] [phone] Nov, Lumbar back pain 724.2 and N euroforaminal stenosis of spine 724.00 [place] [address] [id number] [address] [place] [phone] Nov, Edema 782.3 ; Lumbar back pa in 724.2 ; Essential hypertension, benign 401.1 ; Hyperlipemia 272.4 ; Neuroforaminal stenosis of spine 724.00 and Post-concussion headache 339.20 [place] [address] [id number] [address] [place] [phone] Nov, [place] [address] [id number] [address] [place] [phone] Nov, [facility] [address] [id number] [address] [place] [phone] Oct, Essential hypertension, sheridan gn 401.1 [facility] [address] [facility] [id number] [address] [place] [phone] Oct, Edema 782.3 ; Lumbar back pa in 724.2 ; Essential hypertension, benign 401.1 ; Hyperlipemia 272.4 ; Neuroforaminal stenosis of spine 724.00 and Post-concussion headache 339.20 [facility] [address] [id number] [address] [place] [phone] Oct, [place] [address] [facility] [id number] [address] [place] [phone] Oct, Edema 782.3 [place] [address] [facility] [id number] [address] [place] [phone] Oct, Lumbar back pain 724.2 [place] [address] [id number] [address] [place] [phone] Oct, Cervicalgia 723.1 ; Lumbar b ack pain 724.2 and High risk medication use V58.69 [place] [address] [address] [facility] [id number] [address] [place] [phone] Sep, [place] [address] [facility] [id number] [address] [place] [phone] Sep, Lumbar strain 847.2 [place] [address] [facility] [id number] [address] [place] [phone] August, Edema 782.3 and Eustachian t ube dysfunction 381.81 [place] [address] [facility] [id number] [address] [place] [phone] August, [place] [address] [facility] [id number] [address] [place] [phone] August, Eustachian tube dysfunction 381.81 [facility] [address] [id number] [address] [place] [address], [place] [address] 29 Jul, 2014 Otalgia 388.70 and Otitis me jonathon 382.9 [facility] [address] [id number] [address] [place] [address], [place] [address] Jul, [facility] [address] [id number] [address] [place] [address], [place] [address] Jul, [facility] [address] [id number] [address] [place] [address], [place] [address] Jul, [facility] [address] [id number] [address] [place] [address], [place] [address] 14 Jul, 2014 [facility] [address] [id number] [address] [place] [address], [place] [address] Jul, [facility] [address] [id number] [address] [place] [address], [place] [address] Jun, [facility] [address] [id number] [address] [place] [address], [place] [address] Jun, [facility] [address] [id number] [address] [place] [address], [place] [address] 16 Jun, 2014 [facility] [address] [id number] [address] [place] [address], [place] [address] May, [facility] [address] [id number] [address] [place] [address], [place] [address] May, [facility] [address] [id number] [address] [place] [address], [place] [address] 23 May, 2014 [facility] [address] [id number] [address] [place] [address], [place] [address] May, [facility] [address] [id number] [address] [place] [address], [place] [address] May, [facility] [address] [id number] [address] [place] [address], [place] [address] May, [facility] [address] [id number] [address] [place] [address], [place] [address] May, [facility] [address] [id number] [address] [place] [address], [place] [address] May, [facility] [address] [id number] [address] [place] [address], [place] [address] May, [facility] [address] [id number] [address] [place] [address], [place] [address] May, [facility] [address] [id number] [address] [place] [address], [place] [address] Apr, [facility] [address] [id number] [address] [place] [address], [place] [address] Apr, [facility] [address] [id number] [address] [place] [address], [place] [address] Apr, [facility] [address] [id number] [address] [place] [address], [place] [address] Apr, [facility] [address] [id number] [address] [place] [address], [place] [address] Apr, [facility] [address] [id number] [address] [place] [address], [place] [address] Apr, [facility] [address] [id number] [address] [place] [address], [place] [address] Apr, [facility] [address] [id number] [address] [place] [address], [place] [address] Apr, [facility] [address] [id number] [address] [place] [address], [place] [address] Apr, [facility] [address] [id number] [address] [place] [address], [place] [address] Apr, [facility] [address] [id number] [address] [place] [address], [place] [address] Apr, [facility] [address] [id number] [address] [place] [address], [place] [address] Apr, [facility] [address] [id number] [address] [place] [address], [place] [address] Apr, [facility] [address] [id number] [address] [place] [address], [place] [address] Apr, [facility] [address] [id number] [address] [place] [address], [place] [address] Apr, [facility] [address] [id number] [address] [place] [address], [place] [address] Mar, [facility] [address] [id number] [address] [place] [address], [place] [address] Mar, [facility] [address] [id number] [address] [place] [address], [place] [address] Mar, [facility] [address] [id number] [address] [place] [address], [place] [address] Mar, [facility] [address] [id number] [address] [place] [address], [place] [address] Feb, [facility] [address] [id number] [address] [place] [address], [place] [address] Feb, [facility] [address] [id number] [address] [place] [address], [place] [address] Feb, [facility] [address] [id number] [address] [place] [address], [place] [address] Feb, [facility] [address] [id number] [address] [place] [phone] Jan, [facility] [address] [id number] [address] [place] [address], [place] [address] Jan, [facility] [address] [id number] [address] [place] [address], [place] [address] Jan, [facility] [address] [id number] [address] [place] [address], [place] [address] Jan, [facility] [address] [id number] [address] [place] [address], [place] [address] Jan, [facility] [address] [id number] [address] [place] [address], [place] [address] Jan, [facility] [address] [id number] [address] [place] [address], [place] [address] Jan, [facility] [address] [id number] [address] [place] [address], [place] [address] Jan, [facility] [address] [id number] [address] [place] [address], [place] [address] Dec, [facility] [address] [id number] [address] [place] [address], [place] [address] Dec, [facility] [address] [id number] [address] [place] [address], [place] [address] Dec, [facility] [address] [id number] [address] [place] [address], [place] [address] Dec, [facility] [address] [id number] [address] [place] [address], [place] [address] Oct, [facility] [address] [id number] [address] [place] [address], [place] [address] Oct, [facility] [address] [id number] [address] [place] [address], [place] [address] Oct, [facility] [address] [id number] [address] [place] [address], [place] [address] Oct, 2013 [facility] [address] [id number] [address] [place] [address], [place] [address] Oct, [facility] [address] [id number] [address] [place] [address], [place] [address] Oct, 2013 [facility] [address] [id number] [address] [place] [address], [place] [address] Oct, 2013 [facility] [address] [id number] [address] [place] [address], [place] [address] Oct, [facility] [address] [id number] [address] [place] [address], [place] [address] Sep, [facility] [address] [id number] [address] [place] [address], [place] [address] Sep, [facility] [address] [id number] [address] [place] [address], [place] [address] Sep, [facility] [address] [id number] [address] [place] [address], [place] [address] Sep, [facility] [address] [id number] [address] [place] [address], [place] [address] Sep, [facility] [address] [id number] [address] [place] [address], [place] [address] Sep, [facility] [address] [id number] [address] [place] [address], [place] [address] Sep, [facility] [address] [id number] [address] [place] [address], [place] [address] Sep, [facility] [address] [id number] [address] [place] [address], [place] [address] Sep, [facility] [address] [id number] [address] [place] [address], [place] [address] Sep, [facility] [address] [id number] [address] [place] [address], [place] [address] August, [facility] [address] [id number] [address] [place] [address], [place] [address] August, [facility] [address] [id number] [address] [place] [address], [place] [address] August, [facility] [address] [id number] [address] [place] [address], [place] [address] August, [facility] [address] [id number] [address] [place] [address], [place] [address] August, [facility] [address] [id number] [address] [place] [address], [place] [address] August, [facility] [address] [id number] [address] [place] [address], [place] [address] August, [facility] [address] [id number] [address] [place] [address], [place] [address] August, [facility] [address] [id number] [address] [place] [address], [place] [address] August, [facility] [address] [id number] [address] [place] [address], [place] [address] August, [facility] [address] [id number] [address] [place] [address], [place] [address] August, [facility] [address] [id number] [address] [place] [address], [place] [address] August, [facility] [address] [id number] [address] [place] [address], [place] [address] Jul, [facility] [address] [id number] [address] [place] [address], [place] [address] Jul, [facility] [address] [id number] [address] [place] [address], [place] [address] Jul, [facility] [address] [id number] [address] [place] [address], [place] [address] Jul, [facility] [address] [id number] [address] [place] [address], [place] [address] Jul, [facility] [address] [id number] [address] [place] [address], [place] [address] Jul, [facility] [address] [id number] [address] [place] [address], [place] [address] Jun, [facility] [address] [id number] [address] [place] [address], [place] [address] Jun, [facility] [address] [id number] [address] [place] [address], [place] [address] May, [facility] [address] [id number] [address] [place] [address], [place] [address] 10 May, 2013 [facility] [address] [id number] [address] [place] [address], [place] [address] Apr, [facility] [address] [id number] [address] [place] [address], [place] [address] Apr, [facility] [address] [id number] [address] [place] [address], [place] [address] Apr, [facility] [address] [id number] [address] [place] [address], [place] [address] Apr, [facility] [address] [id number] [address] [place] [address], [place] [address] Apr, [facility] [address] [id number] [address] [place] [address], [place] [address] Apr, [facility] [address] [id number] [address] [place] [address], [place] [address] Apr, [facility] [address] [id number] [address] [place] [address], [place] [address] Apr, [facility] [address] [id number] [address] [place] [address], [place] [address] Apr, [facility] [address] [id number] [address] [place] [address], [place] [address] Apr, [facility] [address] [id number] [address] [place] [address], [place] [address] Apr, [facility] [address] [id number] [address] [place] [address], [place] [address] Apr, [facility] [address] [id number] [address] [place] [address], [place] [address] Apr, [facility] [address] [id number] [address] [place] [address], [place] [address] Mar, [facility] [address] [id number] [address] [place] [address] [address] Mar, [facility] [address] [id number] [address] [place] [address], [place] [address] Mar, [facility] [address] [id number] [address] [place] [address], [place] [address] Mar, [facility] [address] [id number] [address] [place] [address], [place] [address] Feb, [facility] [address] [id number] [address] [place] [address], [place] [address] Feb, [facility] [address] [id number] [address] [place] [address], [place] [address] Feb, [facility] [address] [id number] [address] [place] [address], [place] [address] Feb, [facility] [address] [id number] [address] [place] [address], [place] [address] Jan, [facility] [address] [id number] [address] [place] [address] Jan, [facility] [address] [id number] [address] [place] [id number] Jan, [facility] [address] [id number] [address] [place] [address] Jan, [facility] [address] [id number] [address] [place] [address] Jan, [facility] [address] [id number] [address] [place] [id number] Jan, [facility] [address] [id number] [address] [place] [address] Jan, [facility] [address] [id number] [address] [place] [phone] Jan, [facility] [address] [id number] [address] [place] [id number] Jan, [facility] [address] [id number] [address] [place] [address], [place] [address] 26 Dec, 2012 [facility] [address] [id number] [address] [place] [address], [place] [address] 16 Dec, 2012 [facility] [address] [id number] [address] [place] [address], [place] [address] 16 Dec, 2012 [facility] [address] [id number] [address] [place] [address], [place] [address] 13 Dec, 2012 [facility] [address] [id number] [address] [place] [address], [place] [address] 17 Nov, 2012 [facility] [address] [id number] [address] [place] [address], [place] [address] 17 Nov, 2012 [facility] [address] [id number] [address] [place] [address], [place] [address] Nov, [facility] [address] [id number] [address] [place] [address], [place] [address] 05 Nov, 2012 [facility] [address] [id number] [address] [place] [address], [place] [address] Oct, [facility] [address] [id number] [address] [place] [address], [place] [address] Sep, [facility] [address] [id number] [address] [place] [address], [place] [address] August, [facility] [address] [id number] [address] [place] [address], [place] [address] August, [facility] [address] [id number] [address] [place] [address], [place] [address] August, [facility] [address] [id number] [address] [place] [address], [place] [address] August, [facility] [address] [id number] [address] [place] [address], [place] [address] August, [facility] [address] [id number] [address] [place] [address], [place] [address] August, [facility] [address] [id number] [address] [place] [address], [place] [address] August, [facility] [address] [id number] [address] [place] [address], [place] [address] August, [facility] [address] [id number] [address] [place] [address], [place] [address] August, [facility] [address] [id number] [address] [place] [address], [place] [address] August, [facility] [address] [id number] [address] [place] [address], [place] [address] August, [facility] [address] [id number] [address] [place] [address], [place] [address] August, [facility] [address] [id number] [address] [place] [address], [place] [address] Jul, [facility] [address] [id number] [address] [place] [address], [place] [address] Jul, [facility] [address] [id number] [address] [place] [address], [place] [address] Jul, [facility] [address] [id number] [address] [place] [address], [place] [address] 15 Jul, 2012 [facility] [address] [id number] [address] [place] [address], [place] [address] Jul, [facility] [address] [id number] [address] [place] [address], [place] [address] Jul, [facility] [address] [id number] [address] [place] [address], [place] [address] Jul, [facility] [address] [id number] [address] [place] [address], [place] [address] Jul, [facility] [address] [id number] [address] [place] [address], [place] [address] Jul, [facility] [address] [id number] [address] [place] [address], [place] [address] Jul, [facility] [address] [id number] [address] [place] [address], [place] [address] Jul, [facility] [address] [id number] [address] [place] [address], [place] [address] Jun, [facility] [address] [id number] [address] [place] [address], [place] [address] Jun, [facility] [address] [id number] [address] [place] [address], [place] [address] Jun, [facility] [address] [id number] [address] [place] [address], [place] [address] Jun, [facility] [address] [id number] [address] [place] [address], [place] [address] May, [facility] [address] [id number] [address] [place] [address], [place] [address] May, [facility] [address] [id number] [address] [place] [address], [place] [address] May, [facility] [address] [id number] [address] [place] [address], [place] [address] May, [facility] [address] [id number] [address] [place] [address], [place] [address] May, [facility] [address] [id number] [address] [place] [address], [place] [address] May, [facility] [address] [id number] [address] [place] [address], [place] [address] Apr, [facility] [address] [id number] [address] [place] [address], [place] [address] Apr, [facility] [address] [id number] [address] [place] [address], [place] [address] Apr, [facility] [address] [id number] [address] [place] [address], [place] [address] Apr, [facility] [address] [id number] [address] [place] [address], [place] [address] 15 Mar, 2012 [facility] [address] [id number] [address] [place] [address], [place] [address] 14 Mar, 2012 [facility] [address] [id number] [address] [place] [address], [place] [address] 14 Mar, 2012 [facility] [address] [id number] [address] [place] [address], [place] [address] 14 Mar, 2012 [facility] [address] [id number] [address] [place] [address], [place] [address] 14 Mar, 2012 [facility] [address] [id number] [address] [place] [address], [place] [address] 06 Mar, 2012 [facility] [address] [id number] [address] [place] [address], [place] [address] Mar, [facility] [address] [id number] [address] [place] [address], [place] [address] Feb, [facility] [address] [id number] [address] [place] [address], [place] [address] Feb, [facility] [address] [id number] [address] [place] [address], [place] [address] Feb, [facility] [address] [id number] [address] [place] [address], [place] [address] Feb, [facility] [address] [id number] [address] [place] [address], [place] [address] Jan, [facility] [address] [id number] [address] [place] [address], [place] [address] 11 Jan, 2012 [facility] [address] [id number] [address] [place] [address], [place] [address] 10 Jan, 2012 [facility] [address] [id number] [address] [place] [address], [place] [address] 10 Jan, 2012 [facility] [address] [id number] [address] [place] [address], [place] [address] Jan, [facility] [address] [id number] [address] [place] [address], [place] [address] Jan, [facility] [address] [id number] [address] [place] [address], [place] [address] Dec, [facility] [address] [id number] [address] [place] [address], [place] [address] Dec, [facility] [address] [id number] [address] [place] [address], [place] [address] Nov, [facility] [address] [id number] [address] [place] [address], [place] [address] Sep, [facility] [address] [id number] [address] [place] [address], [place] [address] August, [facility] [address] [id number] [address] [place] [address], [place] [address] August, [facility] [address] [id number] [address] [place] [address], [place] [address] August, [facility] [address] [id number] [address] [place] [address], [place] [address] August, [facility] [address] [id number] [address] [place] [address], [place] [address] August, [facility] [address] [id number] [address] [place] [address], [place] [address] Jun, [facility] [address] [id number] [address] [place] [address], [place] [address] Jun, [facility] [address] [id number] [address] [place] [address], [place] [address] Apr, [facility] [address] [id number] [address] [place] [address], [place] [address] Apr, [facility] [address] [id number] [address] [place] [address], [place] [address] Mar, [facility] [address] [id number] [address] [place] [address] 22 Feb, 2011 [facility] [address] [id number] [address] [place] [id number] 14 Feb, 2011 [facility] [address] [id number] [address] [place] [id number] 14 Feb, 2011 [facility] [address] [id number] [address] [place] [id number] 17 Jan, 2011 [facility] [address] [id number] [address] [place] [id number] 15 Jan, 2011 [facility] [address] [id number] [address] [place] [id number] 15 Jan, 2011 [facility] [address] [id number] [address] [place] [address] Jan, [facility] [address] [id number] [address] [place] [id number] 15 May, 2010 [facility] [address] [id number] [address] [place] [id number] Mar, [facility] [address] [id number] [address] [place] [id number] Oct, [facility] [address] [id number] [address] [place] [id number] Sep, [facility] [address] [id number] [address] [place] [id number] Mar, [facility] [address] [id number] [address] [place] [id number] Jan, [facility] [address] [id number] [address] [place] [id number] Jan, [facility] [address] [id number] [address] [place] [id number] May, IMMUNIZATIONS No Known Immunizations SOCIAL HISTORY [...] squamous atypia (no definite dyplasia). Performed at [facility] Dr. Joy. Medical History Acute suppurative [...]
--- OUTSIDE RECORDS SUMMARY | 2019-11-23 05:41 | XMS REPORT ---
Author Author Liana Coe Doctor Organization [facility] Address Unknown Phone Unavailable Care Team Providers Care Net Developer Architect Name Role Phone Migration, Doctor Unavailable Unavailable PROBLEMS Type Condition ICD9-CM Code [id number] Code Onset Dates Condition S tatus SNOMED Code Problem Hematuria, unspecified type R31.9 Ac tive 42189641 Problem Abnormal glucose R73.09 Active 102 699594 Problem Anxiety F41.9 Active 23002382 Problem Neck pain M54.2 Active 67190290 Problem Essential hypertension I10 Active 47383498 Problem Rhinosinusitis J32.9 Active 91136 4004 Problem Neuroforaminal stenosis of spine M99.89 Active [id number] Problem Other chronic pain G89.29 Active 8 0349751 Problem Abnormal renal ultrasound R93.429 Acti ve [id number] Problem Mixed hyperlipidemia E78.2 Active 30428344 Problem Hypokalemia E87.6 Active 10565227 Problem Chronic pain due to trauma G89.21 Act juanis 801368521 Problem Seasonal allergies J30.2 Active 4 [id number] ALLERGIES No Information ENCOUNTERS Encounter Location Date Diagnosis [facility] [address] [facility] [id number] [address] [place] [address] 07 Jan, 2020 [facility] [address] [facility] [id number] [address] [place] [address] 07 Oct, 2019 Neuroforaminal stenosis of s pine M99.89 ; Screening breast examination Z12.39 and Other chronic pain G89.29 [facility] [address] [facility] [id number] [address] [place] [address] Sep, [facility] [address] [facility] [id number] [address] [place] [address] Sep, Neuroforaminal stenosis of s pine M99.89 [facility] [address] [facility] [id number] [address] [place] [address] Sep, Encounter for laboratory luisa hidalgo for COVID-19 virus V73.89 [facility] [address] [id number] [address] [place] [address] August, Neuroforaminal stenosis of s jose M99.89 [facility] [address] [id number] [address] [place] [address] August, Acute bacterial conjunctivit is of right eye H10.31 [facility] [address] [id number] [address] [place] [address] August, Low back pain M54.5 ; Other chronic pain G89.29 and Dysuria R30.0 [place] [address] [id number] [address] [place] [address] August, [place] [address] [facility] [id number] [address] [place] [address] Jul, Neuroforaminal stenosis of s jose M99.89 [place] [address] [id number] [address] [place] [address] Jul, Allergic conjunctivitis of b oth eyes H10.13 [place] [address] [id number] [address] [place] [address] Jun, Hypokalemia E87.6 [place] [address] [id number] [address] [place] [address] Jun, [place] [address] [id number] [address] [place] [address] Jun, Neuroforaminal stenosis of s jose M99.89 [facility] [address] [id number] [address] [place] [address] 19 Jun, 2019 Lateral epicondylitis, left elbow M77.12 and Medial epicondylitis, left elbow M77.02 [place] [address] [id number] [address] [place] [address] 16 Jun, 2019 Foraminal stenosis of lumbar region M48.061 ; Segmental dysfunction of thoracic region M99.02 ; Segmental dysfunction of lumbar region M99.03 and Segmental dysfunction of sacral region M99.04 [facility] [address] [id number] [address] [place] [address] 28 May, 2019 Left elbow pain M25.522 [facility] [address] [id number] [address] [place] [address] May, [facility] [address] [id number] [address] [place] [address] May, Left elbow pain M25.522 [facility] [address] [id number] [address] [place] [address] May, Neuroforaminal stenosis of s pine M99.89 [place] [address] [id number] [address] [place] [address] May, Rhinosinusitis J32.9 ; Left elbow pain M25.522 and Neck pain M54.2 [place] [address] [id number] [address] [place] [address] 14 May, 2019 Lateral epicondylitis of lef t elbow M77.12 [place] [address] [id number] [address] [place] [address] Apr, Neuroforaminal stenosis of s pine M99.89 [place] [address] [facility] [id number] [address] [place] [address] Apr, Essential hypertension I10 a nd Mixed hyperlipidemia E78.2 [facility] [address] [id number] [address] [place] [address] Mar, Neuroforaminal stenosis of s pine M99.89 [facility] [address] [id number] [address] [place] [address] Mar, Epicondylitis, lateral, left M77.12 [facility] [address] [id number] [address] [place] [address] Mar, [place] [address] [facility] [id number] [address] [place] [address] Mar, Neuroforaminal stenosis of s pine M99.89 [facility] [address] [facility] [id number] [address] [place] [address] Feb, Neuroforaminal stenosis of s pine M99.89 ; Essential hypertension I10 ; Mixed hyperlipidemia E78.2 ; Encounter for immunization Z23 and Seasonal allergies J30.2 [facility] [address] [facility] [id number] [address] [place] [address] Jan, Neuroforaminal stenosis of s pine M99.89 [place] [address] [facility] [id number] [address] [place] [address] Dec, Neuroforaminal stenosis of s pine M99.89 [place] [address] [place] [id number] [address] [place] [address] Dec, Neuroforaminal stenosis of s pine M99.89 [facility] [address] [facility] [id number] [address] [place] [address] Nov, [place] [address] [place] [id number] [address] [place] [address] Nov, Neuroforaminal stenosis of s pine M99.89 [facility] [address] [place] [id number] [address] [place] [address] Nov, Acute non-recurrent maxillar y sinusitis J01.00 [facility] [address] [place] [id number] [address] [place] [address] Oct, Hypokalemia E87.6 [facility] [address] [facility] [id number] [address] [place] [address] Oct, Wasp sting, undetermined int ent, initial encounter T63.464A and Cellulitis of left lower extremity L03.116 [facility] [address] [place] [id number] [address] [place] [address] Oct, Neuroforaminal stenosis of s pine M99.89 [place] [address] [id number] [address] [place] [address] Sep, [place] [address] [id number] [address] [place] [address] 24 Sep, 2018 [place] [address] [facility] [id number] [address] [place] [address] 18 Sep, 2018 Routine screening for STI (s exually transmitted infection) Z11.3 [place] [address] [id number] [address] [place] [address] 14 Sep, 2018 Routine screening for STI (s exually transmitted infection) Z11.3 ; Well woman exam with routine gynecological exam Z01.419 and Breast cancer screening Z12.39 [place] [address] [facility] [id number] [address] [place] [address] 10 Sep, 2018 Neuroforaminal stenosis of s pine M99.89 [place] [address] [facility] [id number] [address] [place] [address] August, Neuroforaminal stenosis of s pine M99.89 [place] [address] [facility] [id number] [address] [place] [address] August, Neuroforaminal stenosis of s pine M99.89 ; Chronic pain due to trauma G89.21 and Mixed hyperlipidemia E78.2 [place] [address] [facility] [id number] [address] [place] [address] Jul, Viral upper respiratory illn ess J06.9 and Acute non-recurrent frontal sinusitis J01.10 [place] [address] [facility] [id number] [address] [place] [address] Jul, Congestion of nasal sinus R0 9.81 [place] [address] [facility] [id number] [address] [place] [address] Jul, Neuroforaminal stenosis of s pine M99.89 and Essential hypertension I10 [place] [address] [facility] [id number] [address] [place] [address] May, Neuroforaminal stenosis of s pine M99.89 [facility] [address] [id number] [address] [place] [address] May, [facility] [address] [id number] [address] [place] [address] May, Congestion of nasal sinus R0 9.81 [facility] [address] [id number] [address] [place] [address] May, [facility] [address] [id number] [address] [place] [address] Apr, Neuroforaminal stenosis of s pine M99.89 [facility] [address] [id number] [address] [place] [address] Apr, Neuroforaminal stenosis of s pine M99.89 and Chronic pain due to trauma G89.21 [facility] [address] [id number] [address] [place] [address] Mar, UTI (urinary tract infection ) N39.0 [facility] [address] [id number] [address] [place] [address] Mar, Vertigo R42 [facility] [address] [facility] [id number] [address] [place] [address] Mar, Neuroforaminal stenosis of s pine M99.89 [facility] [address] [id number] [address] [place] [address] Feb, Extensor tendon disruption M 67.89 [facility] [address] [id number] [address] [place] [address] Feb, Neuroforaminal stenosis of s pine M99.89 and High risk medication use Z79.899 [facility] [address] [id number] [address] [place] [address] Jan, Hypokalemia E87.6 [facility] [address] [facility] [id number] [address] [place] [address] Jan, Flank pain R10.9 and Acute r ight-sided low back pain without sciatica M54.5 [place] [address] [address] Jan, Hypokalemia E87.6 [place] [address] [address] Jan, [place] [address] [address] Jan, URI, acute J06.9 [place] [address] [address] Jan, Neuroforaminal stenosis of s jose M99.89 [place] [address] [address] 13 Dec, 2017 Lateral epicondylitis, right elbow M77.11 [place] [address] [address] 11 Dec, 2017 Allergic rhinitis due to monica rosalina, unspecified seasonality J30.1 and Allergic conjunctivitis of both eyes H10.13 [place] [address] [address] 10 Dec, 2017 Neuroforaminal stenosis of s pine M99.89 [place] [address] [address] Dec, Mixed hyperlipidemia E78.2 [place] [address] [address] 05 Dec, 2017 Abnormal glucose R73.09 ; Ab normal renal ultrasound R93.429 ; Dysuria R30.0 ; Cystitis without hematuria N30.90 ; Hypokalemia E87.6 ; Mixed hyperlipidemia E78.2 and Hematuria, unspecified type R31.9 [place] [address] [address] Nov, Hypokalemia E87.6 ; Mixed hy perlipidemia E78.2 and Hematuria, unspecified type R31.9 [facility] [address] [id number] [address] [place] [address] Nov, [facility] [address] [id number] [address] [place] [address] Nov, Hypokalemia E87.6 [facility] [address] [id number] [address] [place] [address] Nov, [facility] [address] [id number] [address] [place] [address] Nov, Abnormal renal ultrasound R9 3.429 [place] [address] [id number] [address] [place] [address] Nov, Abnormal renal ultrasound R9 3.429 [place] [address] [id number] [address] [place] [address] Nov, Hematuria, unspecified type R31.9 and Neuroforaminal stenosis of spine M99.89 [place] [address] [id number] [address] [place] [address] Nov, Dysuria R30.0 [place] [address] [id number] [address] [place] [address] Oct, Lateral epicondylitis, right elbow M77.11 [place] [address] [id number] [address] [place] [address] Oct, Neuroforaminal stenosis of s pine M99.89 ; Visit for TB skin test Z11.1 and Essential hypertension I10 [place] [address] [id number] [address] [place] [address] Oct, [place] [address] [id number] [address] [place] [address] Oct, Neuroforaminal stenosis of s pine M99.89 [place] [address] [facility] [id number] [address] [place] [address] 10 Oct, 2017 Visit for TB skin test Z11.1 [place] [address] [id number] [address] [place] [address] 05 Oct, 2017 Cystitis without hematuria N 30.90 [place] [address] [id number] [address] [place] [address] 28 Sep, 2017 Screening breast examination Z12.39 [place] [address] [id number] [address] [place] [address] 26 Sep, 2017 Dysuria R30.0 and Cystitis w ithout hematuria N30.90 [place] [address] [id number] [address] [place] [address] 14 Sep, 2017 Essential hypertension I10 a nd Neuroforaminal stenosis of spine M99.89 [place] [address] [id number] [address] [place] [address] 04 Sep, 2017 Abnormal glucose R73.09 [place] [address] [facility] [id number] [address] [place] [address] August, Lateral epicondylitis, right elbow M77.11 [place] [address] [facility] [id number] [address] [place] [address] August, Screen for STD (sexually tra nsmitted disease) Z11.3 [place] [address] [facility] [id number] [address] [place] [address] August, Neuroforaminal stenosis of s pine M99.89 ; Mixed hyperlipidemia E78.2 ; Elevated fasting glucose R73.01 ; Screening mammogram, encounter for Z12.31 and Encounter for well woman exam without gynecological exam Z00.00 [place] [address] [id number] [address] [place] [address] August, Neuroforaminal stenosis of s pine M99.89 [place] [address] [facility] [id number] [address] [place] [address] August, Essential hypertension I10 ; Hypokalemia E87.6 and Mixed hyperlipidemia E78.2 [facility] [address] [id number] [address] [place] [address] Jul, [facility] [address] [id number] [address] [place] [address] Jul, Neuroforaminal stenosis of s jose M99.89 [facility] [address] [id number] [address] [place] [address] Jul, Lateral epicondylitis, right elbow M77.11 [facility] [address] [id number] [address] [place] [address] Jul, [facility] [address] [id number] [address] [place] [address] Jun, High ankle sprain of right l ower extremity, initial encounter S93.431A [place] [address] [id number] [address] [place] [address] Jun, Essential hypertension I10 [facility] [address] [id number] [address] [place] [address] Jun, [facility] [address] [id number] [address] [place] [address] Jun, [facility] [address] [id number] [address] [place] [address] Jun, Neuroforaminal stenosis of s pine M99.89 [facility] [address] [id number] [address] [place] [address] Jun, Pain of right upper extremit y M79.601 and Essential hypertension I10 [facility] [address] [id number] [address] [place] [address] Jun, [place] [address] [id number] [address] [place] [address] Jun, Dysuria R30.0 ; Acute cystit is with hematuria N30.01 and Screen for STD (sexually transmitted disease) Z11.3 [place] [address] [address] May, Chronic pain due to trauma G 89.21 [place] [address] [address] May, Essential hypertension I10 [place] [address] [address] May, Neuroforaminal stenosis of s pine M99.89 [place] [address] [address] Apr, Allergic reaction, initial e ncounter T78.40XA [place] [address] [address] Apr, Low back pain, unspecified b ack pain laterality, unspecified chronicity, with sciatica presence unspecified M54.5 ; Acute cystitis with hematuria N30.01 ; 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 ; Bilateral acute serous otitis media, recurrence not specified H65.03 ; Mixed hyperlipidemia E78.2 ; Essential hypertension I10 ; Immunization counseling Z71.89 and Encounter for immunization Z23 [place] [address] [address] Apr, Neck pain M54.2 [place] [address] [address] Mar, Neuroforaminal stenosis of s pine M99.89 [place] [address] [place] [id number] [address] [place] [address] Mar, Pharyngitis due to other org anism J02.8 [place] [address] [address] Feb, Neuroforaminal stenosis of s pine M99.89 [place] [address] [address] 08 Feb, 2017 UTI (urinary tract infection ) N39.0 [place] [address] [place] [id number] [address] [place] [address] 07 Feb, 2017 Recent urinary tract infecti on Z87.440 ; Neuroforaminal stenosis of 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 ; Neck pain M54.2 ; Chronic pain due to trauma G89.21 and Recurrent UTI N39.0 [facility] [address] [id number] [address] [place] [address] Feb, [facility] [address] [id number] [address] [place] [address] Jan, Neuroforaminal stenosis of s pine M99.89 [facility] [address] [id number] [address] [place] [address] Dec, Neuroforaminal stenosis of s pine M99.89 [facility] [address] [id number] [address] [place] [address] 18 Dec, 2016 Acute seasonal allergic rhin itis due to pollen J30.1 [facility] [address] [id number] [address] [place] [address] 08 Dec, 2016 [facility] [address] [id number] [address] [place] [address] 08 Dec, 2016 Acute seasonal allergic rhin itis, unspecified trigger J30.2 ; Allergic conjunctivitis of both eyes H10.13 and Dysfunction of both eustachian tubes H69.83 [facility] [address] [id number] [address] [place] [address] Dec, [facility] [address] [id number] [address] [place] [address] Dec, Nevus D22.9 [facility] [address] [id number] [address] [place] [address] Nov, Chronic pain due to trauma G 89.21 and Neuroforaminal stenosis of spine M99.89 [facility] [address] [id number] [address] [place] [address] Nov, Neuroforaminal stenosis of s pine M99.89 ; Essential hypertension I10 ; Mixed hyperlipidemia E78.2 ; Hypokalemia E87.6 ; Neck pain M54.2 and Nevus D22.9 [facility] [address] [id number] [address] [place] [address] Oct, Neuroforaminal stenosis of s pine M99.89 [facility] [address] [id number] [address] [place] [address] Sep, Neuroforaminal stenosis of s pine M99.89 [facility] [address] [id number] [address] [place] [address] Sep, [facility] [address] [id number] [address] [place] [address] August, [facility] [address] [id number] [address] [place] [address] August, Neck pain M54.2 and Neurofor aminal stenosis of spine M99.89 [facility] [address] [id number] [address] [place] [address] August, Routine gynecological examin ation Z01.419 and Screening breast examination Z12.39 [facility] [address] [id number] [address] [place] [address] Jul, [facility] [address] [id number] [address] [place] [address] Jul, [facility] [address] [id number] [address] [place] [address] Jul, Neuroforaminal stenosis of s pine M99.89 [facility] [address] [id number] [address] [place] [address] Jul, [facility] [address] [id number] [address] [place] [address] Jul, Neuroforaminal stenosis of l umbar 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 [facility] [address] [id number] [address] [place] [address] Jul, [facility] [address] [facility] [id number] [address] [place] [address] Jul, [facility] [address] [facility] [id number] [address] [place] [address] Jun, Neuroforaminal stenosis of s jose M99.89 [facility] [address] [facility] [id number] [address] [place] [phone] Jun, Uterine leiomyoma, unspecifi ed location D25.9 and Allergic reaction caused by a drug, initial encounter T78.40XA [facility] [address] [facility] [id number] [address] [place] [id number] Jun, [facility] [address] [facility] [id number] [address] [place] [phone] May, UTI symptoms R39.9 and Pain of right sacroiliac joint M53.3 [place] [address] [place] [id number] [address] [place] [phone] May, Neuroforaminal stenosis of s pine M99.89 [place] [address] [facility] [id number] [address] [place] [phone] May, [facility] [address] [facility] [id number] [address] [place] [phone] May, Acute mucoid otitis media of left ear H65.112 and Acute non- recurrent maxillary sinusitis J01.00 [place] [address] [place] [id number] [address] [place] [phone] May, Acute bacterial conjunctivit is of both eyes H10.33 ; Left arm pain M79.602 and Hypokalemia E87.6 [place] [address] [facility] [id number] [address] [place] [id number] Apr, [facility] [address] [facility] [id number] [address] [place] [phone] Apr, Neuroforaminal stenosis of s pine M99.89 ; Neck pain M54.2 ; Chronic pain due to trauma G89.21 ; Mixed hyperlipidemia E78.2 ; Essential hypertension I10 and Hypokalemia E87.6 [facility] [address] [facility] [id number] [address] [place] [id number] Mar, Oral candidiasis B37.0 ; Nathaniel roforaminal stenosis of spine M99.89 ; Neck pain M54.2 and Chronic pain due to trauma G89.21 [facility] [address] [id number] [address] [place] [address] Feb, [facility] [address] [id number] [address] [place] [address] Feb, [facility] [address] [facility] [id number] [address] [place] [address] Feb, UTI (urinary tract infection ) N39.0 [facility] [address] [place] [id number] [address] [place] [address] Feb, Dysuria R30.0 [facility] [address] [facility] [id number] [address] [place] [address] Feb, Dysuria R30.0 [facility] [address] [facility] [id number] [address] [place] [address] Feb, Neuroforaminal stenosis of s pine M99.89 ; Neck pain M54.2 ; Essential hypertension I10 ; Chronic pain due to trauma G89.21 ; Dysuria R30.0 ; Abnormal MRI, shoulder R93.8 and Acute cystitis without hematuria N30.00 [facility] [address] [facility] [id number] [address] [place] [address] Jan, [facility] [address] [facility] [id number] [address] [place] [address] Jan, [facility] [address] [facility] [id number] [address] [place] [address] Jan, [facility] [address] [facility] [id number] [address] [place] [address] Jan, Abnormal MRI R93.8 [facility] [address] [id number] [address] [place] [address] 29 Dec, 2015 [facility] [address] [id number] [address] [place] [address] 15 Dec, 2015 Acute pain of left shoulder M25.512 [facility] [address] [id number] [address] [place] [address] 09 Dec, 2015 [facility] [address] [id number] [address] [place] [address] 08 Dec, 2015 [facility] [address] [id number] [address] [place] [address] 07 Dec, 2015 Acute pain of left shoulder M25.512 [facility] [address] [id number] [address] [place] [address] Nov, [facility] [address] [id number] [address] [place] [address] Nov, Neuroforaminal stenosis of s pine M99.89 ; Neck pain M54.2 ; Abnormal mammogram R92.8 ; Essential hypertension I10 and Chronic pain due to trauma G89.21 [facility] [address] [id number] [address] [place] [address] Nov, [facility] [address] [id number] [address] [place] [address] Oct, Acute stress disorder F43.0 [facility] [address] [id number] [address] [place] [address] Oct, [facility] [address] [id number] [address] [place] [address] Oct, [facility] [address] [id number] [address] [place] [address] Oct, [facility] [address] [id number] [address] [place] [address] Sep, [facility] [address] [id number] [address] [place] [address] August, [facility] [address] [id number] [address] [place] [address] Jul, Neuroforaminal stenosis of s pine M99.89 ; Neck pain M54.2 ; Abnormal mammogram R92.8 and Essential hypertension I10 [facility] [address] [id number] [address] [place] [address] Jul, [facility] [address] [id number] [address] [place] [address] Jul, [facility] [address] [id number] [address] [place] [address] Jul, Abnormal mammogram R92.8 [facility] [address] [id number] [address] [place] [address] Jul, [facility] [address] [facility] [id number] [address] [place] [address] Jul, UTI (urinary tract infection ) N39.0 [facility] [address] [id number] [address] [place] [address] Jul, Dysuria R30.0 [facility] [address] [id number] [address] [place] [address] Jun, [facility] [address] [id number] [address] [place] [address] Jun, [facility] [address] [id number] [address] [place] [address] Jun, Hypokalemia E87.6 and Hematu martina R31.9 [facility] [address] [id number] [address] [place] [address] Jun, Hypokalemia E87.6 [facility] [address] [id number] [address] [place] [address] Jun, [facility] [address] [address] Jun, Hypokalemia E87.6 [place] [address] [address] Jun, Hypokalemia E87.6 [place] [address] [address] Jun, Neuroforaminal stenosis of s pine M99.89 ; Hypokalemia E87.6 ; Neck pain M54.2 ; Essential hypertension I10 ; Mixed hyperlipidemia E78.2 and Screening breast examination Z12.39 [place] [address] [address] Jun, Dysuria R30.0 ; UTI (urinary tract infection) N39.0 and Hematuria R31.[address] [address] May, [facility] [address] [address] May, High risk sexual behavior Z7 2.51 ; Hypokalemia E87.6 ; Neuroforaminal stenosis of spine M99.89 ; Neck pain M54.2 ; Essential hypertension I10 ; Mixed hyperlipidemia E78.2 ; STD exposure Z20.2 and Concern about STD in female without diagnosis Z71.1 [place] [address] [address] 16 May, 2015 Neuroforaminal stenosis of s pine M99.89 ; Neck pain M54.2 ; Hypokalemia E87.6 ; Essential hypertension I10 and Mixed hyperlipidemia E78.2 [place] [address] [address] May, [facility] [address] [place] [id number] [address] [place] [address] 08 May, 2015 High risk sexual behavior Z7 2.51 ; STD exposure Z20.2 and Concern about STD in female without diagnosis Z71.1 [place] [address] [address] May, [place] [address] [address] Apr, Neuroforaminal stenosis of s pine M99.89 ; Mixed hyperlipidemia E78.2 ; Essential hypertension I10 and Hypokalemia E87.6 [place] [address] [address] Mar, [place] [address] [address] Mar, Hypokalemia E87.6 [place] [address] [address] Mar, Neuroforaminal stenosis of s pine M99.89 ; Mixed hyperlipidemia E78.2 ; Neck pain M54.2 ; Essential hypertension I10 ; Abnormal fasting glucose R73.09 ; Hypokalemia E87.6 and Constipation K59.00 [place] [address] [address] Feb, Neuroforaminal stenosis of s pine M99.89 ; Mixed hyperlipidemia E78.2 ; Neck pain M54.2 ; Essential hypertension I10 ; Abnormal fasting glucose R73.09 ; Hypokalemia E87.6 and Constipation K59.00 [place] [address] [address] Feb, Elevated fasting blood sugar R73.01 [place] [address] [address] Feb, Elevated fasting blood sugar R73.01 [place] [address] [address] Feb, Hair loss L65.9 [place] [address] [address] Feb, Sinusitis J32.9 ; Essential hypertension I10 and Hair loss L65.9 [facility] [address] [id number] [address] [place] [address] Jan, [facility] [address] [id number] [address] [place] [address] Jan, Essential hypertension I10 ; Neuroforaminal stenosis of spine M99.89 ; Neck pain M54.2 ; Mixed hyperlipidemia E78.2 and Anxiety F41.9 [place] [address] [id number] [address] [place] [address] Jan, [place] [address] [facility] [id number] [place] [address] Jan, Mixed hyperlipidemia E78.2 ; Essential (primary) hypertension I10 ; Strain of muscle, fascia and tendon at neck level, subsequent encounter S16.1XXD and Tension-type headache, unspecified, not intractable G44.209 [place] [address] [id number] [address] [place] [address] Dec, Lumbar back pain 724.2 and N euroforaminal stenosis of spine 724.00 [place] [address] [id number] [address] [place] [address] Nov, [place] [address] [id number] [address] [place] [address] Nov, Lumbar back pain 724.2 and N euroforaminal stenosis of spine 724.00 [place] [address] [id number] [address] [place] [address] Nov, Edema 782.3 ; Lumbar back pa in 724.2 ; Essential hypertension, benign 401.1 ; Hyperlipemia 272.4 ; Neuroforaminal stenosis of spine 724.00 and Post-concussion headache 339.20 [place] [address] [id number] [address] [place] [address] Nov, [place] [address] [id number] [address] [place] [address] Nov, [facility] [address] [id number] [address] [place] [address] Oct, Essential hypertension, sheridan gn 401.1 [facility] [address] [facility] [id number] [address] [place] [address] Oct, Edema 782.3 ; Lumbar back pa in 724.2 ; Essential hypertension, benign 401.1 ; Hyperlipemia 272.4 ; Neuroforaminal stenosis of spine 724.00 and Post-concussion headache 339.20 [facility] [address] [id number] [address] [place] [address] Oct, [place] [address] [facility] [id number] [address] [place] [address] Oct, Edema 782.3 [place] [address] [facility] [id number] [address] [place] [address] Oct, Lumbar back pain 724.2 [place] [address] [id number] [address] [place] [address] Oct, Cervicalgia 723.1 ; Lumbar b ack pain 724.2 and High risk medication use V58.69 [place] [address] [facility] [id number] [address] [place] [address] Sep, [place] [address] [facility] [id number] [address] [place] [address] Sep, Lumbar strain 847.2 [place] [address] [facility] [id number] [address] [place] [address] August, Edema 782.3 and Eustachian t ube dysfunction 381.81 [place] [address] [facility] [id number] [address] [place] [address] August, [place] [address] [facility] [id number] [address] [place] [address] August, Eustachian tube dysfunction 381.81 [facility] [address] [id number] [address] [place] [address], [place] [address] 29 Jul, 2014 Otalgia 388.70 and Otitis me jonathon 382.9 [facility] [address] [id number] [address] [place] [address], [place] [address] Jul, [facility] [address] [id number] [address] [place] [address], [place] [address] Jul, [facility] [address] [id number] [address] [place] [address], [place] [address] Jul, [facility] [address] [id number] [address] [place] [address], [place] [address] 14 Jul, 2014 [facility] [address] [id number] [address] [place] [address], [place] [address] Jul, [facility] [address] [id number] [address] [place] [address], [place] [address] Jun, [facility] [address] [id number] [address] [place] [address], [place] [address] Jun, [facility] [address] [id number] [address] [place] [address], [place] [address] 16 Jun, 2014 [facility] [address] [id number] [address] [place] [address], [place] [address] May, [facility] [address] [id number] [address] [place] [address], [place] [address] May, [facility] [address] [id number] [address] [place] [address], [place] [address] 23 May, 2014 [facility] [address] [id number] [address] [place] [address], [place] [address] May, [facility] [address] [id number] [address] [place] [address], [place] [address] May, [facility] [address] [id number] [address] [place] [address], [place] [address] May, [facility] [address] [id number] [address] [place] [address], [place] [address] May, [facility] [address] [id number] [address] [place] [address], [place] [address] May, [facility] [address] [id number] [address] [place] [address], [place] [address] May, [facility] [address] [id number] [address] [place] [address], [place] [address] May, [facility] [address] [id number] [address] [place] [address], [place] [address] Apr, [facility] [address] [id number] [address] [place] [address], [place] [address] Apr, [facility] [address] [id number] [address] [place] [address], [place] [address] Apr, [facility] [address] [id number] [address] [place] [address], [place] [address] Apr, [facility] [address] [id number] [address] [place] [address], [place] [address] Apr, [facility] [address] [id number] [address] [place] [address], [place] [address] Apr, [facility] [address] [id number] [address] [place] [address], [place] [address] Apr, [facility] [address] [id number] [address] [place] [address], [place] [address] Apr, [facility] [address] [id number] [address] [place] [address], [place] [address] Apr, [facility] [address] [id number] [address] [place] [address], [place] [address] Apr, [facility] [address] [id number] [address] [place] [address], [place] [address] Apr, [facility] [address] [id number] [address] [place] [address], [place] [address] Apr, [facility] [address] [id number] [address] [place] [address], [place] [address] Apr, [facility] [address] [id number] [address] [place] [address], [place] [address] Apr, [facility] [address] [id number] [address] [place] [address], [place] [address] Apr, [facility] [address] [id number] [address] [place] [address], [place] [address] Mar, [facility] [address] [id number] [address] [place] [address], [place] [address] Mar, [facility] [address] [id number] [address] [place] [address], [place] [address] Mar, [facility] [address] [id number] [address] [place] [address], [place] [address] Mar, [facility] [address] [id number] [address] [place] [address], [place] [address] Feb, [facility] [address] [id number] [address] [place] [address], [place] [address] Feb, [facility] [address] [id number] [address] [place] [address], [place] [address] Feb, [facility] [address] [id number] [address] [place] [address], [place] [address] Feb, [facility] [address] [id number] [address] [place] [address] Jan, [facility] [address] [id number] [address] [place] [address], [place] [address] Jan, [facility] [address] [id number] [address] [place] [address], [place] [address] Jan, [facility] [address] [id number] [address] [place] [address], [place] [address] Jan, [facility] [address] [id number] [address] [place] [address], [place] [address] Jan, [facility] [address] [id number] [address] [place] [address], [place] [address] Jan, [facility] [address] [id number] [address] [place] [address], [place] [address] Jan, [facility] [address] [id number] [address] [place] [address], [place] [address] Jan, [facility] [address] [id number] [address] [place] [address], [place] [address] Dec, [facility] [address] [id number] [address] [place] [address], [place] [address] Dec, [facility] [address] [id number] [address] [place] [address], [place] [address] Dec, [facility] [address] [id number] [address] [place] [address], [place] [address] Dec, [facility] [address] [id number] [address] [place] [address], [place] [address] Oct, [facility] [address] [id number] [address] [place] [address], [place] [address] Oct, [facility] [address] [id number] [address] [place] [address], [place] [address] Oct, [facility] [address] [id number] [address] [place] [address], [place] [address] Oct, 2013 [facility] [address] [id number] [address] [place] [address], [place] [address] Oct, [facility] [address] [id number] [address] [place] [address], [place] [address] Oct, 2013 [facility] [address] [id number] [address] [place] [address], [place] [address] Oct, 2013 [facility] [address] [id number] [address] [place] [address], [place] [address] Oct, [facility] [address] [id number] [address] [place] [address], [place] [address] Sep, [facility] [address] [id number] [address] [place] [address], [place] [address] Sep, [facility] [address] [id number] [address] [place] [address], [place] [address] Sep, [facility] [address] [id number] [address] [place] [address], [place] [address] Sep, [facility] [address] [id number] [address] [place] [address], [place] [address] Sep, [facility] [address] [id number] [address] [place] [address], [place] [address] Sep, [facility] [address] [id number] [address] [place] [address], [place] [address] Sep, [facility] [address] [id number] [address] [place] [address], [place] [address] Sep, [facility] [address] [id number] [address] [place] [address], [place] [address] Sep, [facility] [address] [id number] [address] [place] [address], [place] [address] Sep, [facility] [address] [id number] [address] [place] [address], [place] [address] August, [facility] [address] [id number] [address] [place] [address], [place] [address] August, [facility] [address] [id number] [address] [place] [address], [place] [address] August, [facility] [address] [id number] [address] [place] [address], [place] [address] August, [facility] [address] [id number] [address] [place] [address], [place] [address] August, [facility] [address] [id number] [address] [place] [address], [place] [address] August, [facility] [address] [id number] [address] [place] [address], [place] [address] August, [facility] [address] [id number] [address] [place] [address], [place] [address] August, [facility] [address] [id number] [address] [place] [address], [place] [address] August, [facility] [address] [id number] [address] [place] [address], [place] [address] August, [facility] [address] [id number] [address] [place] [address], [place] [address] August, [facility] [address] [id number] [address] [place] [address], [place] [address] August, [facility] [address] [id number] [address] [place] [address], [place] [address] Jul, [facility] [address] [id number] [address] [place] [address], [place] [address] Jul, [facility] [address] [id number] [address] [place] [address], [place] [address] Jul, [facility] [address] [id number] [address] [place] [address], [place] [address] Jul, [facility] [address] [id number] [address] [place] [address], [place] [address] Jul, [facility] [address] [id number] [address] [place] [address], [place] [address] Jul, [facility] [address] [id number] [address] [place] [address], [place] [address] Jun, [facility] [address] [id number] [address] [place] [address], [place] [address] Jun, [facility] [address] [id number] [address] [place] [address], [place] [address] May, [facility] [address] [id number] [address] [place] [address], [place] [address] 10 May, 2013 [facility] [address] [id number] [address] [place] [address], [place] [address] Apr, [facility] [address] [id number] [address] [place] [address], [place] [address] Apr, [facility] [address] [id number] [address] [place] [address], [place] [address] Apr, [facility] [address] [id number] [address] [place] [address], [place] [address] Apr, [facility] [address] [id number] [address] [place] [address], [place] [address] Apr, [facility] [address] [id number] [address] [place] [address], [place] [address] Apr, [facility] [address] [id number] [address] [place] [address], [place] [address] Apr, [facility] [address] [id number] [address] [place] [address], [place] [address] Apr, [facility] [address] [id number] [address] [place] [address], [place] [address] Apr, [facility] [address] [id number] [address] [place] [address], [place] [address] Apr, [facility] [address] [id number] [address] [place] [address], [place] [address] Apr, [facility] [address] [id number] [address] [place] [address], [place] [address] Apr, [facility] [address] [id number] [address] [place] [address], [place] [address] Apr, [facility] [address] [id number] [address] [place] [address], [place] [address] Mar, [facility] [address] [id number] [address] [place] [address] [address] Mar, [facility] [address] [id number] [address] [place] [address], [place] [address] Mar, [facility] [address] [id number] [address] [place] [address], [place] [address] Mar, [facility] [address] [id number] [address] [place] [address], [place] [address] Feb, [facility] [address] [id number] [address] [place] [address], [place] [address] Feb, [facility] [address] [id number] [address] [place] [address], [place] [address] Feb, [facility] [address] [id number] [address] [place] [address], [place] [address] Feb, [facility] [address] [id number] [address] [place] [address], [place] [address] Jan, [facility] [address] [id number] [address] [place] [address] Jan, [facility] [address] [id number] [address] [place] [address] Jan, [facility] [address] [id number] [address] [place] [address] Jan, [facility] [address] [id number] [address] [place] [address] Jan, [facility] [address] [id number] [address] [place] [address] Jan, [facility] [address] [id number] [address] [place] [address] Jan, [facility] [address] [id number] [address] [place] [address] Jan, [facility] [address] [id number] [address] [place] [address] Jan, [facility] [address] [id number] [address] [place] [address], [place] [address] 26 Dec, 2012 [facility] [address] [id number] [address] [place] [address], [place] [address] 16 Dec, 2012 [facility] [address] [id number] [address] [place] [address], [place] [address] 16 Dec, 2012 [facility] [address] [id number] [address] [place] [address], [place] [address] 13 Dec, 2012 [facility] [address] [id number] [address] [place] [address], [place] [address] 17 Nov, 2012 [facility] [address] [id number] [address] [place] [address], [place] [address] 17 Nov, 2012 [facility] [address] [id number] [address] [place] [address], [place] [address] Nov, [facility] [address] [id number] [address] [place] [address], [place] [address] 05 Nov, 2012 [facility] [address] [id number] [address] [place] [address], [place] [address] Oct, [facility] [address] [id number] [address] [place] [address], [place] [address] Sep, [facility] [address] [id number] [address] [place] [address], [place] [address] August, [facility] [address] [id number] [address] [place] [address], [place] [address] August, [facility] [address] [id number] [address] [place] [address], [place] [address] August, [facility] [address] [id number] [address] [place] [address], [place] [address] August, [facility] [address] [id number] [address] [place] [address], [place] [address] August, [facility] [address] [id number] [address] [place] [address], [place] [address] August, [facility] [address] [id number] [address] [place] [address], [place] [address] August, [facility] [address] [id number] [address] [place] [address], [place] [address] August, [facility] [address] [id number] [address] [place] [address], [place] [address] August, [facility] [address] [id number] [address] [place] [address], [place] [address] August, [facility] [address] [id number] [address] [place] [address], [place] [address] August, [facility] [address] [id number] [address] [place] [address], [place] [address] August, [facility] [address] [id number] [address] [place] [address], [place] [address] Jul, [facility] [address] [id number] [address] [place] [address], [place] [address] Jul, [facility] [address] [id number] [address] [place] [address], [place] [address] Jul, [facility] [address] [id number] [address] [place] [address], [place] [address] 15 Jul, 2012 [facility] [address] [id number] [address] [place] [address], [place] [address] Jul, [facility] [address] [id number] [address] [place] [address], [place] [address] Jul, [facility] [address] [id number] [address] [place] [address], [place] [address] Jul, [facility] [address] [id number] [address] [place] [address], [place] [address] Jul, [facility] [address] [id number] [address] [place] [address], [place] [address] Jul, [facility] [address] [id number] [address] [place] [address], [place] [address] Jul, [facility] [address] [id number] [address] [place] [address], [place] [address] Jul, [facility] [address] [id number] [address] [place] [address], [place] [address] Jun, [facility] [address] [id number] [address] [place] [address], [place] [address] Jun, [facility] [address] [id number] [address] [place] [address], [place] [address] Jun, [facility] [address] [id number] [address] [place] [address], [place] [address] Jun, [facility] [address] [id number] [address] [place] [address], [place] [address] May, [facility] [address] [id number] [address] [place] [address], [place] [address] May, [facility] [address] [id number] [address] [place] [address], [place] [address] May, [facility] [address] [id number] [address] [place] [address], [place] [address] May, [facility] [address] [id number] [address] [place] [address], [place] [address] May, [facility] [address] [id number] [address] [place] [address], [place] [address] May, [facility] [address] [id number] [address] [place] [address], [place] [address] Apr, [facility] [address] [id number] [address] [place] [address], [place] [address] Apr, [facility] [address] [id number] [address] [place] [address], [place] [address] Apr, [facility] [address] [id number] [address] [place] [address], [place] [address] Apr, [facility] [address] [id number] [address] [place] [address], [place] [address] 15 Mar, 2012 [facility] [address] [id number] [address] [place] [address], [place] [address] 14 Mar, 2012 [facility] [address] [id number] [address] [place] [address], [place] [address] 14 Mar, 2012 [facility] [address] [id number] [address] [place] [address], [place] [address] 14 Mar, 2012 [facility] [address] [id number] [address] [place] [address], [place] [address] 14 Mar, 2012 [facility] [address] [id number] [address] [place] [address], [place] [address] 06 Mar, 2012 [facility] [address] [id number] [address] [place] [address], [place] [address] Mar, [facility] [address] [id number] [address] [place] [address], [place] [address] Feb, [facility] [address] [id number] [address] [place] [address], [place] [address] Feb, [facility] [address] [id number] [address] [place] [address], [place] [address] Feb, [facility] [address] [id number] [address] [place] [address], [place] [address] Feb, [facility] [address] [id number] [address] [place] [address], [place] [address] Jan, [facility] [address] [id number] [address] [place] [address], [place] [address] 11 Jan, 2012 [facility] [address] [id number] [address] [place] [address], [place] [address] 10 Jan, 2012 [facility] [address] [id number] [address] [place] [address], [place] [address] 10 Jan, 2012 [facility] [address] [id number] [address] [place] [address], [place] [address] Jan, [facility] [address] [id number] [address] [place] [address], [place] [address] Jan, [facility] [address] [id number] [address] [place] [address], [place] [address] Dec, [facility] [address] [id number] [address] [place] [address], [place] [address] Dec, [facility] [address] [id number] [address] [place] [address], [place] [address] Nov, [facility] [address] [id number] [address] [place] [address], [place] [address] Sep, [facility] [address] [id number] [address] [place] [address], [place] [address] August, [facility] [address] [id number] [address] [place] [address], [place] [address] August, [facility] [address] [id number] [address] [place] [address], [place] [address] August, [facility] [address] [id number] [address] [place] [address], [place] [address] August, [facility] [address] [id number] [address] [place] [address], [place] [address] August, [facility] [address] [id number] [address] [place] [address], [place] [address] Jun, [facility] [address] [id number] [address] [place] [address], [place] [address] Jun, [facility] [address] [id number] [address] [place] [address], [place] [address] Apr, [facility] [address] [id number] [address] [place] [address], [place] [address] Apr, [facility] [address] [id number] [address] [place] [address], [place] [address] Mar, [facility] [address] [id number] [address] [place] [address] 22 Feb, 2011 [facility] [address] [id number] [address] [place] [address] 14 Feb, 2011 [facility] [address] [id number] [address] [place] [address] 14 Feb, 2011 [facility] [address] [id number] [address] [place] [address] 17 Jan, 2011 [facility] [address] [id number] [address] [place] [address] 15 Jan, 2011 [facility] [address] [id number] [address] [place] [address] 15 Jan, 2011 [facility] [address] [id number] [address] [place] [address] Jan, [facility] [address] [id number] [address] [place] [address] 15 May, 2010 [facility] [address] [id number] [address] [place] [address] Mar, [facility] [address] [id number] [address] [place] [address] Oct, [facility] [address] [id number] [address] [place] [address] Sep, [facility] [address] [id number] [address] [place] [address] Mar, [facility] [address] [id number] [address] [place] [address] Jan, [facility] [address] [id number] [address] [place] [address] Jan, [facility] [address] [id number] [address] [place] [address] May, IMMUNIZATIONS No Known Immunizations SOCIAL HISTORY [...]
--- OUTSIDE RECORDS SUMMARY | 2019-11-23 05:42 | XMS REPORT ---
Author Author Liana Coe Doctor Organization [facility] Address Unknown Phone Unavailable Care Team Providers Care Open Die Inspector Name Role Phone Migration, Doctor Unavailable Unavailable PROBLEMS Type Condition ICD9-CM Code [id number] Code Onset Dates Condition S tatus SNOMED Code Problem Hematuria, unspecified type R31.9 Ac tive 82098959 Problem Abnormal glucose R73.09 Active 102 635187 Problem Anxiety F41.9 Active 71399042 Problem Neck pain M54.2 Active 33858532 Problem Essential hypertension I10 Active 35586406 Problem Rhinosinusitis J32.9 Active 72897 4004 Problem Neuroforaminal stenosis of spine M99.89 Active 688848388294 Problem Other chronic pain G89.29 Active 8 4720381 Problem Abnormal renal ultrasound R93.429 Acti ve 30863703094774001 Problem Mixed hyperlipidemia E78.2 Active 81976169 Problem Hypokalemia E87.6 Active 34524250 Problem Chronic pain due to trauma G89.21 Act juanis 675153318 Problem Seasonal allergies J30.2 Active 4 [id number] ALLERGIES No Information ENCOUNTERS Encounter Location Date Diagnosis [facility] [address] [facility] [id number] [address] [place] [address] 07 Jan, 2020 [facility] [address] [facility] [id number] [address] [place] [address] 07 Oct, 2019 Neuroforaminal stenosis of s pine M99.89 ; Screening breast examination Z12.39 and Other chronic pain G89.29 [facility] [address] [facility] [id number] [address] [place] [address] Sep, [facility] [address] [facility] [id number] [address] [place] [address] Sep, Neuroforaminal stenosis of s pine M99.89 [facility] [address] [facility] [id number] [address] [place] [address] Sep, Encounter for laboratory luisa hidalgo for COVID-19 virus V73.89 [facility] [address] [id number] [address] [place] [address] August, Neuroforaminal stenosis of s jose M99.89 [facility] [address] [id number] [address] [place] [address] August, Acute bacterial conjunctivit is of right eye H10.31 [facility] [address] [id number] [address] [place] [address] August, Low back pain M54.5 ; Other chronic pain G89.29 and Dysuria R30.0 [place] [address] [id number] [address] [place] [address] August, [place] [address] [facility] [id number] [address] [place] [address] Jul, Neuroforaminal stenosis of s jose M99.89 [place] [address] [id number] [address] [place] [address] Jul, Allergic conjunctivitis of b oth eyes H10.13 [place] [address] [id number] [address] [place] [address] Jun, Hypokalemia E87.6 [facility] [address] [id number] [address] [place] [address] Jun, [place] [address] [id number] [address] [place] [address] Jun, Neuroforaminal stenosis of s jose M99.89 [facility] [address] [id number] [address] [place] [address] 19 Jun, 2019 Lateral epicondylitis, left elbow M77.12 and Medial epicondylitis, left elbow M77.02 [place] [address] [id number] [address] [place] [address] 16 Jun, 2019 Foraminal stenosis of lumbar region M48.061 ; Segmental dysfunction of thoracic region M99.02 ; Segmental dysfunction of lumbar region M99.03 and Segmental dysfunction of sacral region M99.04 [facility] [address] [id number] [address] [place] [address] 28 May, 2019 Left elbow pain M25.522 [facility] [address] [id number] [address] [place] [address] May, [facility] [address] [id number] [address] [place] [address] May, Left elbow pain M25.522 [facility] [address] [id number] [address] [place] [address] May, Neuroforaminal stenosis of s pine M99.89 [place] [address] [id number] [address] [place] [address] May, Rhinosinusitis J32.9 ; Left elbow pain M25.522 and Neck pain M54.2 [place] [address] [id number] [address] [place] [address] 14 May, 2019 Lateral epicondylitis of lef t elbow M77.12 [place] [address] [id number] [address] [place] [address] Apr, Neuroforaminal stenosis of s pine M99.89 [place] [address] [facility] [id number] [address] [place] [address] Apr, Essential hypertension I10 a nd Mixed hyperlipidemia E78.2 [facility] [address] [id number] [address] [place] [address] Mar, Neuroforaminal stenosis of s pine M99.89 [facility] [address] [id number] [address] [place] [address] Mar, Epicondylitis, lateral, left M77.12 [facility] [address] [id number] [address] [place] [address] Mar, [place] [address] [facility] [id number] [address] [place] [address] Mar, Neuroforaminal stenosis of s pine M99.89 [facility] [address] [facility] [id number] [address] [place] [address] Feb, Neuroforaminal stenosis of s pine M99.89 ; Essential hypertension I10 ; Mixed hyperlipidemia E78.2 ; Encounter for immunization Z23 and Seasonal allergies J30.2 [facility] [address] [facility] [id number] [address] [place] [address] Jan, Neuroforaminal stenosis of s pine M99.89 [place] [address] [facility] [id number] [address] [place] [address] Dec, Neuroforaminal stenosis of s pine M99.89 [place] [address] [place] [id number] [address] [place] [address] Dec, Neuroforaminal stenosis of s pine M99.89 [facility] [address] [facility] [id number] [address] [place] [address] Nov, [place] [address] [place] [id number] [address] [place] [address] Nov, Neuroforaminal stenosis of s pine M99.89 [facility] [address] [place] [id number] [address] [place] [address] Nov, Acute non-recurrent maxillar y sinusitis J01.00 [facility] [address] [place] [id number] [address] [place] [address] Oct, Hypokalemia E87.6 [facility] [address] [facility] [id number] [address] [place] [address] Oct, Wasp sting, undetermined int ent, initial encounter T63.464A and Cellulitis of left lower extremity L03.116 [facility] [address] [place] [id number] [address] [place] [address] Oct, Neuroforaminal stenosis of s pine M99.89 [place] [address] [id number] [address] [place] [address] Sep, [place] [address] [id number] [address] [place] [address] 24 Sep, 2018 [place] [address] [facility] [id number] [address] [place] [phone] 18 Sep, 2018 Routine screening for STI (s exually transmitted infection) Z11.3 [place] [address] [id number] [address] [place] [address] 14 Sep, 2018 Routine screening for STI (s exually transmitted infection) Z11.3 ; Well woman exam with routine gynecological exam Z01.419 and Breast cancer screening Z12.39 [place] [address] [facility] [id number] [address] [place] [address] 10 Sep, 2018 Neuroforaminal stenosis of s pine M99.89 [place] [address] [facility] [id number] [address] [place] [address] August, Neuroforaminal stenosis of s pine M99.89 [place] [address] [facility] [id number] [address] [place] [address] August, Neuroforaminal stenosis of s pine M99.89 ; Chronic pain due to trauma G89.21 and Mixed hyperlipidemia E78.2 [place] [address] [facility] [id number] [address] [place] [address] Jul, Viral upper respiratory illn ess J06.9 and Acute non-recurrent frontal sinusitis J01.10 [place] [address] [facility] [id number] [address] [place] [address] Jul, Congestion of nasal sinus R0 9.81 [place] [address] [facility] [id number] [address] [place] [address] Jul, Neuroforaminal stenosis of s pine M99.89 and Essential hypertension I10 [place] [address] [facility] [id number] [address] [place] [address] May, Neuroforaminal stenosis of s pine M99.89 [facility] [address] [id number] [address] [place] [address] May, [facility] [address] [id number] [address] [place] [address] May, Congestion of nasal sinus R0 9.81 [facility] [address] [id number] [address] [place] [phone] May, [facility] [address] [id number] [address] [place] [address] Apr, Neuroforaminal stenosis of s pine M99.89 [facility] [address] [id number] [address] [place] [address] Apr, Neuroforaminal stenosis of s pine M99.89 and Chronic pain due to trauma G89.21 [facility] [address] [id number] [address] [place] [address] Mar, UTI (urinary tract infection ) N39.0 [facility] [address] [id number] [address] [place] [address] Mar, Vertigo R42 [facility] [address] [facility] [id number] [address] [place] [address] Mar, Neuroforaminal stenosis of s pine M99.89 [facility] [address] [id number] [address] [place] [address] Feb, Extensor tendon disruption M 67.89 [facility] [address] [id number] [address] [place] [address] Feb, Neuroforaminal stenosis of s pine M99.89 and High risk medication use Z79.899 [facility] [address] [id number] [address] [place] [address] Jan, Hypokalemia E87.6 [facility] [address] [facility] [id number] [address] [place] [address] Jan, Flank pain R10.9 and Acute r ight-sided low back pain without sciatica M54.5 [place] [address] [address] Jan, Hypokalemia E87.6 [place] [address] [address] Jan, [place] [address] [address] Jan, URI, acute J06.9 [place] [address] [address] Jan, Neuroforaminal stenosis of s jose M99.89 [place] [address] [address] 13 Dec, 2017 Lateral epicondylitis, right elbow M77.11 [place] [address] [address] 11 Dec, 2017 Allergic rhinitis due to monica rosalina, unspecified seasonality J30.1 and Allergic conjunctivitis of both eyes H10.13 [place] [address] [address] 10 Dec, 2017 Neuroforaminal stenosis of s pine M99.89 [place] [address] [address] Dec, Mixed hyperlipidemia E78.2 [place] [address] [address] 05 Dec, 2017 Abnormal glucose R73.09 ; Ab normal renal ultrasound R93.429 ; Dysuria R30.0 ; Cystitis without hematuria N30.90 ; Hypokalemia E87.6 ; Mixed hyperlipidemia E78.2 and Hematuria, unspecified type R31.9 [place] [address] [address] Nov, Hypokalemia E87.6 ; Mixed hy perlipidemia E78.2 and Hematuria, unspecified type R31.9 [facility] [address] [id number] [address] [place] [phone] Nov, [facility] [address] [id number] [address] [place] [address] Nov, Hypokalemia E87.6 [facility] [address] [id number] [address] [place] [phone] Nov, [facility] [address] [id number] [address] [place] [address] Nov, Abnormal renal ultrasound R9 3.429 [place] [address] [id number] [address] [place] [address] Nov, Abnormal renal ultrasound R9 3.429 [place] [address] [id number] [address] [place] [address] Nov, Hematuria, unspecified type R31.9 and Neuroforaminal stenosis of spine M99.89 [place] [address] [id number] [address] [place] [address] Nov, Dysuria R30.0 [place] [address] [id number] [address] [place] [address] Oct, Lateral epicondylitis, right elbow M77.11 [place] [address] [id number] [address] [place] [address] Oct, Neuroforaminal stenosis of s pine M99.89 ; Visit for TB skin test Z11.1 and Essential hypertension I10 [place] [address] [id number] [address] [place] [address] Oct, [place] [address] [id number] [address] [place] [address] Oct, Neuroforaminal stenosis of s pine M99.89 [place] [address] [facility] [id number] [address] [place] [address] 10 Oct, 2017 Visit for TB skin test Z11.1 [place] [address] [id number] [address] [place] [address] 05 Oct, 2017 Cystitis without hematuria N 30.90 [place] [address] [id number] [address] [place] [address] 28 Sep, 2017 Screening breast examination Z12.39 [place] [address] [id number] [address] [place] [address] 26 Sep, 2017 Dysuria R30.0 and Cystitis w ithout hematuria N30.90 [place] [address] [id number] [address] [place] [address] 14 Sep, 2017 Essential hypertension I10 a nd Neuroforaminal stenosis of spine M99.89 [place] [address] [id number] [address] [place] [address] 04 Sep, 2017 Abnormal glucose R73.09 [place] [address] [facility] [id number] [address] [place] [address] August, Lateral epicondylitis, right elbow M77.11 [place] [address] [facility] [id number] [address] [place] [address] August, Screen for STD (sexually tra nsmitted disease) Z11.3 [place] [address] [facility] [id number] [address] [place] [address] August, Neuroforaminal stenosis of s pine M99.89 ; Mixed hyperlipidemia E78.2 ; Elevated fasting glucose R73.01 ; Screening mammogram, encounter for Z12.31 and Encounter for well woman exam without gynecological exam Z00.00 [place] [address] [id number] [address] [place] [address] August, Neuroforaminal stenosis of s pine M99.89 [place] [address] [facility] [id number] [address] [place] [address] August, Essential hypertension I10 ; Hypokalemia E87.6 and Mixed hyperlipidemia E78.2 [facility] [address] [id number] [address] [place] [address] Jul, [facility] [address] [id number] [address] [place] [address] Jul, Neuroforaminal stenosis of s jose M99.89 [facility] [address] [id number] [address] [place] [phone] Jul, Lateral epicondylitis, right elbow M77.11 [facility] [address] [id number] [address] [place] [address] Jul, [facility] [address] [id number] [address] [place] [address] Jun, High ankle sprain of right l ower extremity, initial encounter S93.431A [place] [address] [id number] [address] [place] [address] Jun, Essential hypertension I10 [facility] [address] [id number] [address] [place] [address] Jun, [facility] [address] [id number] [address] [place] [address] Jun, [facility] [address] [id number] [address] [place] [address] Jun, Neuroforaminal stenosis of s pine M99.89 [facility] [address] [id number] [address] [place] [address] Jun, Pain of right upper extremit y M79.601 and Essential hypertension I10 [facility] [address] [id number] [address] [place] [address] Jun, [place] [address] [id number] [address] [place] [address] Jun, Dysuria R30.0 ; Acute cystit is with hematuria N30.01 and Screen for STD (sexually transmitted disease) Z11.3 [place] [address] [address] May, Chronic pain due to trauma G 89.21 [place] [address] [address] May, Essential hypertension I10 [place] [address] [address] May, Neuroforaminal stenosis of s pine M99.89 [place] [address] [address] Apr, Allergic reaction, initial e ncounter T78.40XA [place] [address] [address] Apr, Low back pain, unspecified b ack pain laterality, unspecified chronicity, with sciatica presence unspecified M54.5 ; Acute cystitis with hematuria N30.01 ; Neuroforaminal stenosis of spine M99.89 ; Bilateral acute serous otitis media, recurrence not specified H65.03 ; Mixed hyperlipidemia E78.2 ; Essential hypertension I10 ; Immunization counseling Z71.89 and Encounter for immunization Z23 [place] [address] [address] Apr, Neck pain M54.2 [place] [address] [address] Mar, Neuroforaminal stenosis of s pine M99.89 [place] [address] [place] [id number] [address] [place] [address] Mar, Pharyngitis due to other org anism J02.8 [place] [address] [address] Feb, Neuroforaminal stenosis of s pine M99.89 [place] [address] [address] 08 Feb, 2017 UTI (urinary tract infection ) N39.0 [place] [address] [place] [id number] [address] [place] [address] 07 Feb, 2017 Recent urinary tract infecti on Z87.440 ; Neuroforaminal stenosis of spine M99.89 ; Neck pain M54.2 ; Chronic pain due to trauma G89.21 and Recurrent UTI N39.0 [facility] [address] [id number] [address] [place] [address] Feb, [facility] [address] [id number] [address] [place] [address] Jan, Neuroforaminal stenosis of s pine M99.89 [facility] [address] [id number] [address] [place] [address] Dec, Neuroforaminal stenosis of s pine M99.89 [facility] [address] [id number] [address] [place] [address] 18 Dec, 2016 Acute seasonal allergic rhin itis due to pollen J30.1 [facility] [address] [id number] [address] [place] [phone] 08 Dec, 2016 [facility] [address] [id number] [address] [place] [address] 08 Dec, 2016 Acute seasonal allergic rhin itis, unspecified trigger J30.2 ; Allergic conjunctivitis of both eyes H10.13 and Dysfunction of both eustachian tubes H69.83 [facility] [address] [id number] [address] [place] [address] Dec, [facility] [address] [id number] [address] [place] [address] Dec, Nevus D22.9 [facility] [address] [id number] [address] [place] [address] Nov, Chronic pain due to trauma G 89.21 and Neuroforaminal stenosis of spine M99.89 [facility] [address] [id number] [address] [place] [address] Nov, Neuroforaminal stenosis of s pine M99.89 ; Essential hypertension I10 ; Mixed hyperlipidemia E78.2 ; Hypokalemia E87.6 ; Neck pain M54.2 and Nevus D22.9 [facility] [address] [id number] [address] [place] [address] Oct, Neuroforaminal stenosis of s pine M99.89 [facility] [address] [id number] [address] [place] [address] Sep, Neuroforaminal stenosis of s pine M99.89 [facility] [address] [id number] [address] [place] [address] Sep, [facility] [address] [id number] [address] [place] [address] August, [facility] [address] [id number] [address] [place] [address] August, Neck pain M54.2 and Neurofor aminal stenosis of spine M99.89 [facility] [address] [id number] [address] [place] [address] August, Routine gynecological examin ation Z01.419 and Screening breast examination Z12.39 [facility] [address] [id number] [address] [place] [address] Jul, [facility] [address] [id number] [address] [place] [id number] Jul, [facility] [address] [id number] [address] [place] [address] Jul, Neuroforaminal stenosis of s pine M99.89 [facility] [address] [id number] [address] [place] [address] Jul, [facility] [address] [id number] [address] [place] [address] Jul, Neuroforaminal stenosis of l umbar 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 [facility] [address] [id number] [address] [place] [address] Jul, [facility] [address] [facility] [id number] [address] [place] [address] Jul, [facility] [address] [facility] [id number] [address] [place] [address] Jun, Neuroforaminal stenosis of s jose M99.89 [facility] [address] [facility] [id number] [address] [place] [address] Jun, Uterine leiomyoma, unspecifi ed location D25.9 and Allergic reaction caused by a drug, initial encounter T78.40XA [facility] [address] [facility] [id number] [address] [place] [phone] Jun, [facility] [address] [facility] [id number] [address] [place] [phone] May, UTI symptoms R39.9 and Pain of right sacroiliac joint M53.3 [place] [address] [place] [id number] [address] [place] [phone] May, Neuroforaminal stenosis of s pine M99.89 [place] [address] [facility] [id number] [address] [place] [phone] May, [facility] [address] [facility] [id number] [address] [place] [phone] May, Acute mucoid otitis media of left ear H65.112 and Acute non- recurrent maxillary sinusitis J01.00 [place] [address] [place] [id number] [address] [place] [phone] May, Acute bacterial conjunctivit is of both eyes H10.33 ; Left arm pain M79.602 and Hypokalemia E87.6 [place] [address] [facility] [id number] [address] [place] [phone] Apr, [facility] [address] [facility] [id number] [address] [place] [phone] Apr, Neuroforaminal stenosis of s pine M99.89 ; Neck pain M54.2 ; Chronic pain due to trauma G89.21 ; Mixed hyperlipidemia E78.2 ; Essential hypertension I10 and Hypokalemia E87.6 [facility] [address] [facility] [id number] [address] [place] [phone] Mar, Oral candidiasis B37.0 ; Nathaniel roforaminal stenosis of spine M99.89 ; Neck pain M54.2 and Chronic pain due to trauma G89.21 [facility] [address] [id number] [address] [place] [phone] Feb, [facility] [address] [id number] [address] [place] [phone] Feb, [facility] [address] [facility] [id number] [address] [place] [phone] Feb, UTI (urinary tract infection ) N39.0 [facility] [address] [place] [id number] [address] [place] [address] Feb, Dysuria R30.0 [facility] [address] [facility] [id number] [address] [place] [address] Feb, Dysuria R30.0 [facility] [address] [facility] [id number] [address] [place] [id number] Feb, Neuroforaminal stenosis of s pine M99.89 ; Neck pain M54.2 ; Essential hypertension I10 ; Chronic pain due to trauma G89.21 ; Dysuria R30.0 ; Abnormal MRI, shoulder R93.8 and Acute cystitis without hematuria N30.00 [facility] [address] [facility] [id number] [address] [place] [id number] Jan, [facility] [address] [facility] [id number] [address] [place] [id number] Jan, [facility] [address] [facility] [id number] [address] [place] [address] Jan, [facility] [address] [facility] [id number] [address] [place] [address] Jan, Abnormal MRI R93.8 [facility] [address] [id number] [address] [place] [id number] 29 Dec, 2015 [facility] [address] [id number] [address] [place] [id number] 15 Dec, 2015 Acute pain of left shoulder M25.512 [facility] [address] [id number] [address] [place] [address] 09 Dec, 2015 [facility] [address] [id number] [address] [place] [id number] 08 Dec, 2015 [facility] [address] [id number] [address] [place] [address] 07 Dec, 2015 Acute pain of left shoulder M25.512 [facility] [address] [id number] [address] [place] [address] Nov, [facility] [address] [id number] [address] [place] [address] Nov, Neuroforaminal stenosis of s pine M99.89 ; Neck pain M54.2 ; Abnormal mammogram R92.8 ; Essential hypertension I10 and Chronic pain due to trauma G89.21 [facility] [address] [id number] [address] [place] [phone] Nov, [facility] [address] [id number] [address] [place] [phone] Oct, Acute stress disorder F43.0 [facility] [address] [id number] [address] [place] [address] Oct, [facility] [address] [id number] [address] [place] [phone] Oct, [facility] [address] [id number] [address] [place] [address] Oct, [facility] [address] [id number] [address] [place] [phone] Sep, [facility] [address] [id number] [address] [place] [address] August, [facility] [address] [id number] [address] [place] [address] Jul, Neuroforaminal stenosis of s pine M99.89 ; Neck pain M54.2 ; Abnormal mammogram R92.8 and Essential hypertension I10 [facility] [address] [id number] [address] [place] [phone] Jul, [facility] [address] [id number] [address] [place] [address] Jul, [facility] [address] [id number] [address] [place] [phone] Jul, Abnormal mammogram R92.8 [facility] [address] [id number] [address] [place] [address] Jul, [facility] [address] [facility] [id number] [address] [place] [address] Jul, UTI (urinary tract infection ) N39.0 [facility] [address] [id number] [address] [place] [phone] Jul, Dysuria R30.0 [facility] [address] [id number] [address] [place] [address] Jun, [facility] [address] [id number] [address] [place] [id number] Jun, [facility] [address] [id number] [address] [place] [address] Jun, Hypokalemia E87.6 and Hematu martina R31.9 [facility] [address] [id number] [address] [place] [id number] Jun, Hypokalemia E87.6 [facility] [address] [id number] [address] [place] [address] Jun, [facility] [address] [address] Jun, Hypokalemia E87.6 [place] [address] [address] Jun, Hypokalemia E87.6 [place] [address] [address] Jun, Neuroforaminal stenosis of s pine M99.89 ; Hypokalemia E87.6 ; Neck pain M54.2 ; Essential hypertension I10 ; Mixed hyperlipidemia E78.2 and Screening breast examination Z12.39 [place] [address] [address] Jun, Dysuria R30.0 ; UTI (urinary tract infection) N39.0 and Hematuria R31.[address] [address] May, [facility] [address] [address] May, High risk sexual behavior Z7 2.51 ; Hypokalemia E87.6 ; Neuroforaminal stenosis of spine M99.89 ; Neck pain M54.2 ; Essential hypertension I10 ; Mixed hyperlipidemia E78.2 ; STD exposure Z20.2 and Concern about STD in female without diagnosis Z71.1 [place] [address] [address] 16 May, 2015 Neuroforaminal stenosis of s pine M99.89 ; Neck pain M54.2 ; Hypokalemia E87.6 ; Essential hypertension I10 and Mixed hyperlipidemia E78.2 [place] [address] [address] May, [facility] [address] [place] [id number] [address] [place] [address] 08 May, 2015 High risk sexual behavior Z7 2.51 ; STD exposure Z20.2 and Concern about STD in female without diagnosis Z71.1 [place] [address] [address] May, [place] [address] [address] Apr, Neuroforaminal stenosis of s pine M99.89 ; Mixed hyperlipidemia E78.2 ; Essential hypertension I10 and Hypokalemia E87.6 [place] [address] [address] Mar, [place] [address] [address] Mar, Hypokalemia E87.6 [place] [address] [address] Mar, Neuroforaminal stenosis of s pine M99.89 ; Mixed hyperlipidemia E78.2 ; Neck pain M54.2 ; Essential hypertension I10 ; Abnormal fasting glucose R73.09 ; Hypokalemia E87.6 and Constipation K59.00 [place] [address] [address] Feb, Neuroforaminal stenosis of s pine M99.89 ; Mixed hyperlipidemia E78.2 ; Neck pain M54.2 ; Essential hypertension I10 ; Abnormal fasting glucose R73.09 ; Hypokalemia E87.6 and Constipation K59.00 [place] [address] [address] Feb, Elevated fasting blood sugar R73.01 [place] [address] [address] Feb, Elevated fasting blood sugar R73.01 [place] [address] [address] Feb, Hair loss L65.9 [place] [address] [address] Feb, Sinusitis J32.9 ; Essential hypertension I10 and Hair loss L65.9 [facility] [address] [id number] [address] [place] [address] Jan, [facility] [address] [id number] [address] [place] [address] Jan, Essential hypertension I10 ; Neuroforaminal stenosis of spine M99.89 ; Neck pain M54.2 ; Mixed hyperlipidemia E78.2 and Anxiety F41.9 [place] [address] [id number] [address] [place] [address] Jan, [place] [address] [facility] [id number] [place] [address] Jan, Mixed hyperlipidemia E78.2 ; Essential (primary) hypertension I10 ; Strain of muscle, fascia and tendon at neck level, subsequent encounter S16.1XXD and Tension-type headache, unspecified, not intractable G44.209 [place] [address] [id number] [address] [place] [address] Dec, Lumbar back pain 724.2 and N euroforaminal stenosis of spine 724.00 [place] [address] [id number] [address] [place] [address] Nov, [place] [address] [id number] [address] [place] [address] Nov, Lumbar back pain 724.2 and N euroforaminal stenosis of spine 724.00 [place] [address] [id number] [address] [place] [id number] Nov, Edema 782.3 ; Lumbar back pa in 724.2 ; Essential hypertension, benign 401.1 ; Hyperlipemia 272.4 ; Neuroforaminal stenosis of spine 724.00 and Post-concussion headache 339.20 [place] [address] [id number] [address] [place] [address] Nov, [place] [address] [id number] [address] [place] [address] Nov, [facility] [address] [id number] [address] [place] [id number] Oct, Essential hypertension, sheridan gn 401.1 [facility] [address] [facility] [id number] [address] [place] [address] Oct, Edema 782.3 ; Lumbar back pa in 724.2 ; Essential hypertension, benign 401.1 ; Hyperlipemia 272.4 ; Neuroforaminal stenosis of spine 724.00 and Post-concussion headache 339.20 [facility] [address] [id number] [address] [place] [address] Oct, [place] [address] [facility] [id number] [address] [place] [address] Oct, Edema 782.3 [place] [address] [facility] [id number] [address] [place] [address] Oct, Lumbar back pain 724.2 [place] [address] [id number] [address] [place] [address] Oct, Cervicalgia 723.1 ; Lumbar b ack pain 724.2 and High risk medication use V58.69 [place] [address] [facility] [id number] [address] [place] [phone] Sep, [place] [address] [facility] [id number] [address] [place] [address] Sep, Lumbar strain 847.2 [place] [address] [facility] [id number] [address] [place] [address] August, Edema 782.3 and Eustachian t ube dysfunction 381.81 [place] [address] [facility] [id number] [address] [place] [address] August, [place] [address] [facility] [id number] [address] [place] [address] August, Eustachian tube dysfunction 381.81 [facility] [address] [id number] [address] [place] [address], [place] [address] 29 Jul, 2014 Otalgia 388.70 and Otitis me jonathon 382.9 [facility] [address] [id number] [address] [place] [address], [place] [address] Jul, [facility] [address] [id number] [address] [place] [address], [place] [address] Jul, [facility] [address] [id number] [address] [place] [address], [place] [address] Jul, [facility] [address] [id number] [address] [place] [address], [place] [address] 14 Jul, 2014 [facility] [address] [id number] [address] [place] [address], [place] [address] Jul, [facility] [address] [id number] [address] [place] [address], [place] [address] Jun, [facility] [address] [id number] [address] [place] [address], [place] [address] Jun, [facility] [address] [id number] [address] [place] [address], [place] [address] 16 Jun, 2014 [facility] [address] [id number] [address] [place] [address], [place] [address] May, [facility] [address] [id number] [address] [place] [address], [place] [address] May, [facility] [address] [id number] [address] [place] [address], [place] [address] 23 May, 2014 [facility] [address] [id number] [address] [place] [address], [place] [address] May, [facility] [address] [id number] [address] [place] [address], [place] [address] May, [facility] [address] [id number] [address] [place] [address], [place] [address] May, [facility] [address] [id number] [address] [place] [address], [place] [address] May, [facility] [address] [id number] [address] [place] [address], [place] [address] May, [facility] [address] [id number] [address] [place] [address], [place] [address] May, [facility] [address] [id number] [address] [place] [address], [place] [address] May, [facility] [address] [id number] [address] [place] [address], [place] [address] Apr, [facility] [address] [id number] [address] [place] [address], [place] [address] Apr, [facility] [address] [id number] [address] [place] [address], [place] [address] Apr, [facility] [address] [id number] [address] [place] [address], [place] [address] Apr, [facility] [address] [id number] [address] [place] [address], [place] [address] Apr, [facility] [address] [id number] [address] [place] [address], [place] [address] Apr, [facility] [address] [id number] [address] [place] [address], [place] [address] Apr, [facility] [address] [id number] [address] [place] [address], [place] [address] Apr, [facility] [address] [id number] [address] [place] [address], [place] [address] Apr, [facility] [address] [id number] [address] [place] [address], [place] [address] Apr, [facility] [address] [id number] [address] [place] [address], [place] [address] Apr, [facility] [address] [id number] [address] [place] [address], [place] [address] Apr, [facility] [address] [id number] [address] [place] [address], [place] [address] Apr, [facility] [address] [id number] [address] [place] [address], [place] [address] Apr, [facility] [address] [id number] [address] [place] [address], [place] [address] Apr, [facility] [address] [id number] [address] [place] [address], [place] [address] Mar, [facility] [address] [id number] [address] [place] [address], [place] [address] Mar, [facility] [address] [id number] [address] [place] [address], [place] [address] Mar, [facility] [address] [id number] [address] [place] [address], [place] [address] Mar, [facility] [address] [id number] [address] [place] [address], [place] [address] Feb, [facility] [address] [id number] [address] [place] [address], [place] [address] Feb, [facility] [address] [id number] [address] [place] [address], [place] [address] Feb, [facility] [address] [id number] [address] [place] [address], [place] [address] Feb, [facility] [address] [id number] [address] [place] [address] Jan, [facility] [address] [id number] [address] [place] [address], [place] [address] Jan, [facility] [address] [id number] [address] [place] [address], [place] [address] Jan, [facility] [address] [id number] [address] [place] [address], [place] [address] Jan, [facility] [address] [id number] [address] [place] [address], [place] [address] Jan, [facility] [address] [id number] [address] [place] [address], [place] [address] Jan, [facility] [address] [id number] [address] [place] [address], [place] [address] Jan, [facility] [address] [id number] [address] [place] [address], [place] [address] Jan, [facility] [address] [id number] [address] [place] [address], [place] [address] Dec, [facility] [address] [id number] [address] [place] [address], [place] [address] Dec, [facility] [address] [id number] [address] [place] [address], [place] [address] Dec, [facility] [address] [id number] [address] [place] [address], [place] [address] Dec, [facility] [address] [id number] [address] [place] [address], [place] [address] Oct, [facility] [address] [id number] [address] [place] [address], [place] [address] Oct, [facility] [address] [id number] [address] [place] [address], [place] [address] Oct, [facility] [address] [id number] [address] [place] [address], [place] [address] Oct, 2013 [facility] [address] [id number] [address] [place] [address], [place] [address] Oct, [facility] [address] [id number] [address] [place] [address], [place] [address] Oct, 2013 [facility] [address] [id number] [address] [place] [address], [place] [address] Oct, 2013 [facility] [address] [id number] [address] [place] [address], [place] [address] Oct, [facility] [address] [id number] [address] [place] [address], [place] [address] Sep, [facility] [address] [id number] [address] [place] [address], [place] [address] Sep, [facility] [address] [id number] [address] [place] [address], [place] [address] Sep, [facility] [address] [id number] [address] [place] [address], [place] [address] Sep, [facility] [address] [id number] [address] [place] [address], [place] [address] Sep, [facility] [address] [id number] [address] [place] [address], [place] [address] Sep, [facility] [address] [id number] [address] [place] [address], [place] [address] Sep, [facility] [address] [id number] [address] [place] [address], [place] [address] Sep, [facility] [address] [id number] [address] [place] [address], [place] [address] Sep, [facility] [address] [id number] [address] [place] [address], [place] [address] Sep, [facility] [address] [id number] [address] [place] [address], [place] [address] August, [facility] [address] [id number] [address] [place] [address], [place] [address] August, [facility] [address] [id number] [address] [place] [address], [place] [address] August, [facility] [address] [id number] [address] [place] [address], [place] [address] August, [facility] [address] [id number] [address] [place] [address], [place] [address] August, [facility] [address] [id number] [address] [place] [address], [place] [address] August, [facility] [address] [id number] [address] [place] [address], [place] [address] August, [facility] [address] [id number] [address] [place] [address], [place] [address] August, [facility] [address] [id number] [address] [place] [address], [place] [address] August, [facility] [address] [id number] [address] [place] [address], [place] [address] August, [facility] [address] [id number] [address] [place] [address], [place] [address] August, [facility] [address] [id number] [address] [place] [address], [place] [address] August, [facility] [address] [id number] [address] [place] [address], [place] [address] Jul, [facility] [address] [id number] [address] [place] [address], [place] [address] Jul, [facility] [address] [id number] [address] [place] [address], [place] [address] Jul, [facility] [address] [id number] [address] [place] [address], [place] [address] Jul, [facility] [address] [id number] [address] [place] [address], [place] [address] Jul, [facility] [address] [id number] [address] [place] [address], [place] [address] Jul, [facility] [address] [id number] [address] [place] [address], [place] [address] Jun, [facility] [address] [id number] [address] [place] [address], [place] [address] Jun, [facility] [address] [id number] [address] [place] [address], [place] [address] May, [facility] [address] [id number] [address] [place] [address], [place] [address] 10 May, 2013 [facility] [address] [id number] [address] [place] [address], [place] [address] Apr, [facility] [address] [id number] [address] [place] [address], [place] [address] Apr, [facility] [address] [id number] [address] [place] [address], [place] [address] Apr, [facility] [address] [id number] [address] [place] [address], [place] [address] Apr, [facility] [address] [id number] [address] [place] [address], [place] [address] Apr, [facility] [address] [id number] [address] [place] [address], [place] [address] Apr, [facility] [address] [id number] [address] [place] [address], [place] [address] Apr, [facility] [address] [id number] [address] [place] [address], [place] [address] Apr, [facility] [address] [id number] [address] [place] [address], [place] [address] Apr, [facility] [address] [id number] [address] [place] [address], [place] [address] Apr, [facility] [address] [id number] [address] [place] [address], [place] [address] Apr, [facility] [address] [id number] [address] [place] [address], [place] [address] Apr, [facility] [address] [id number] [address] [place] [address], [place] [address] Apr, [facility] [address] [id number] [address] [place] [address], [place] [address] Mar, [facility] [address] [id number] [address] [place] [address] [address] Mar, [facility] [address] [id number] [address] [place] [address], [place] [address] Mar, [facility] [address] [id number] [address] [place], [place] [address], [place] [address] Mar, [facility] [address] [id number] [address] [place] [address], [place] [address] Feb, [facility] [address] [id number] [address] [place] [address], [place] [address] Feb, [facility] [address] [id number] [address] [place] [address], [place] [address] Feb, [facility] [address] [id number] [address] [place] [address], [place] [address] Feb, [facility] [address] [id number] [address] [place] [address], [place] [address] Jan, [facility] [address] [id number] [address] [place] [phone] Jan, [facility] [address] [id number] [address] [place] [phone] Jan, [facility] [address] [id number] [address] [place] [phone] Jan, [facility] [address] [id number] [address] [place] [phone] Jan, [facility] [address] [id number] [address] [place] [phone] Jan, [facility] [address] [id number] [address] [place] [phone] Jan, [facility] [address] [id number] [address] [place] [phone] Jan, [facility] [address] [id number] [address] [place] [phone] Jan, [facility] [address] [id number] [address] [place] [address], [place] [address] 26 Dec, 2012 [facility] [address] [id number] [address] [place] [address], [place] [address] 16 Dec, 2012 [facility] [address] [id number] [address] [place] [address], [place] [address] 16 Dec, 2012 [facility] [address] [id number] [address] [place] [address], [place] [address] 13 Dec, 2012 [facility] [address] [id number] [address] [place] [address], [place] [address] 17 Nov, 2012 [facility] [address] [id number] [address] [place] [address], [place] [address] 17 Nov, 2012 [facility] [address] [id number] [address] [place] [address], [place] [address] Nov, [facility] [address] [id number] [address] [place] [address], [place] [address] 05 Nov, 2012 [facility] [address] [id number] [address] [place] [address], [place] [address] Oct, [facility] [address] [id number] [address] [place] [address], [place] [address] Sep, [facility] [address] [id number] [address] [place] [address], [place] [address] August, [facility] [address] [id number] [address] [place] [address], [place] [address] August, [facility] [address] [id number] [address] [place] [address], [place] [address] August, [facility] [address] [id number] [address] [place] [address], [place] [address] August, [facility] [address] [id number] [address] [place] [address], [place] [address] August, [facility] [address] [id number] [address] [place] [address], [place] [address] August, [facility] [place] [address] [id number] [address] [place] [address], [place] [address] August, [facility] [address] [id number] [address] [place] [address], [place] [address] August, [facility] [address] [id number] [address] [place] [address], [place] [address] August, [facility] [address] [id number] [address] [place] [address], [place] [address] August, [facility] [address] [id number] [address] [place] [address], [place] [address] August, [facility] [address] [id number] [address] [place] [address], [place] [address] August, [facility] [address] [id number] [address] [place] [address], [place] [address] Jul, [facility] [address] [id number] [address] [place] [address], [place] [address] Jul, [facility] [address] [id number] [address] [place] [address], [place] [address] Jul, [facility] [address] [id number] [address] [place] [address], [place] [address] 15 Jul, 2012 [facility] [address] [id number] [address] [place] [address], [place] [address] Jul, [facility] [address] [id number] [address] [place] [address], [place] [address] Jul, [facility] [address] [id number] [address] [place] [address], [place] [address] Jul, [facility] [address] [id number] [address] [place] [address], [place] [address] Jul, [facility] [address] [id number] [address] [place] [address], [place] [address] Jul, [facility] [address] [id number] [address] [place] [address], [place] [address] Jul, [facility] [address] [id number] [address] [place] [address], [place] [address] Jul, [facility] [address] [id number] [address] [place] [address], [place] [address] Jun, [facility] [address] [id number] [address] [place] [address], [place] [address] Jun, [facility] [address] [id number] [address] [place] [address], [place] [address] Jun, [facility] [address] [id number] [address] [place] [address], [place] [address] Jun, [facility] [address] [id number] [address] [place] [address], [place] [address] May, [facility] [address] [id number] [address] [place] [address], [place] [address] May, [facility] [address] [id number] [address] [place] [address], [place] [address] May, [facility] [address] [id number] [address] [place] [address], [place] [address] May, [facility] [address] [id number] [address] [place] [address], [place] [address] May, [facility] [address] [id number] [address] [place] [address], [place] [address] May, [facility] [address] [id number] [address] [place] [address], [place] [address] Apr, [facility] [address] [id number] [address] [place] [address], [place] [address] Apr, [facility] [address] [id number] [address] [place] [address], [place] [address] Apr, [facility] [address] [id number] [address] [place] [address], [place] [address] Apr, [facility] [address] [id number] [address] [place] [address], [place] [address] 15 Mar, 2012 [facility] [address] [id number] [address] [place] [address], [place] [address] 14 Mar, 2012 [facility] [address] [id number] [address] [place] [address], [place] [address] 14 Mar, 2012 [facility] [address] [id number] [address] [place] [address], [place] [address] 14 Mar, 2012 [facility] [address] [id number] [address] [place] [address], [place] [address] 14 Mar, 2012 [facility] [address] [id number] [address] [place] [address], [place] [address] 06 Mar, 2012 [facility] [address] [id number] [address] [place] [address], [place] [address] Mar, [facility] [address] [id number] [address] [place] [address], [place] [address] Feb, [facility] [address] [id number] [address] [place] [address], [place] [address] Feb, [facility] [address] [id number] [address] [place] [address], [place] [address] Feb, [facility] [address] [id number] [address] [place] [address], [place] [address] Feb, [facility] [address] [id number] [address] [place] [address], [place] [address] Jan, [facility] [address] [id number] [address] [place] [address], [place] [address] 11 Jan, 2012 [facility] [address] [id number] [address] [place] [address], [place] [address] 10 Jan, 2012 [facility] [address] [id number] [address] [place] [address], [place] [address] 10 Jan, 2012 [facility] [address] [id number] [address] [place] [address], [place] [address] Jan, [facility] [address] [id number] [address] [place] [address], [place] [address] Jan, [facility] [address] [id number] [address] [place] [address], [place] [address] Dec, [facility] [address] [id number] [address] [place] [address], [place] [address] Dec, [facility] [address] [id number] [address] [place] [address], [place] [address] Nov, [facility] [address] [id number] [address] [place] [address], [place] [address] Sep, [facility] [address] [id number] [address] [place] [address], [place] [address] August, [facility] [address] [id number] [address] [place] [address], [place] [address] August, [facility] [address] [id number] [address] [place] [address], [place] [address] August, [facility] [address] [id number] [address] [place] [address], [place] [address] August, [facility] [address] [id number] [address] [place] [address], [place] [address] August, [facility] [address] [id number] [address] [place] [address], [place] [address] Jun, [facility] [address] [id number] [address] [place] [address], [place] [address] Jun, [facility] [address] [id number] [address] [place] [address], [place] [address] Apr, [facility] [address] [id number] [address] [place] [address], [place] [address] Apr, [facility] [address] [id number] [address] [place] [address], [place] [address] Mar, [facility] [address] [id number] [address] [place] [phone] 22 Feb, 2011 [facility] [address] [id number] [address] [place] [id number] 14 Feb, 2011 [facility] [address] [id number] [address] [place] [phone] 14 Feb, 2011 [facility] [address] [id number] [address] [place] [phone] 17 Jan, 2011 [facility] [address] [id number] [address] [place] [address] 15 Jan, 2011 [facility] [address] [id number] [address] [place] [phone] 15 Jan, 2011 [facility] [address] [id number] [address] [place] [phone] Jan, [facility] [address] [id number] [address] [place] [phone] 15 May, 2010 [facility] [address] [id number] [address] [place] [phone] Mar, [facility] [address] [id number] [address] [place] [phone] Oct, [facility] [address] [id number] [address] [place] [phone] Sep, [facility] [address] [id number] [address] [place] [phone] Mar, [facility] [address] [id number] [address] [place] [phone] Jan, [facility] [address] [id number] [address] [place] [phone] Jan, [facility] [address] [id number] [address] [place] [phone] May, IMMUNIZATIONS No Known Immunizations SOCIAL HISTORY [...] squamous atypia (no definite dyplasia). Performed at [facility] Dr. Joy. Medical History Acute [...]
--- OUTSIDE RECORDS SUMMARY | 2019-11-23 05:42 | XMS REPORT ---
Author Author Liana Coe Doctor Organization [facility] Address Unknown Phone Unavailable Care Team Providers Care Galley Boy Name Role Phone Migration, Doctor Unavailable Unavailable PROBLEMS Type Condition ICD9-CM Code CFM40-ZX Code Onset Dates Condition S tatus SNOMED Code Problem Hematuria, unspecified type R31.9 Ac tive 07196282 Problem Abnormal glucose R73.09 Active 102 406170 Problem Anxiety F41.9 Active 04779406 Problem Neck pain M54.2 Active 29935180 Problem Essential hypertension I10 Active 48266801 Problem Rhinosinusitis J32.9 Active 15846 4004 Problem Neuroforaminal stenosis of spine M99.89 Active [id number] Problem Other chronic pain G89.29 Active 8 4225783 Problem Abnormal renal ultrasound R93.429 Acti ve [id number] Problem Mixed hyperlipidemia E78.2 Active 02944633 Problem Hypokalemia E87.6 Active 84664177 Problem Chronic pain due to trauma G89.21 Act juanis 036432189 Problem Seasonal allergies J30.2 Active 4 30807940 ALLERGIES No Information ENCOUNTERS Encounter Location Date Diagnosis [facility] [address] [id number] [address] [place] [phone] 07 Jan, 2020 [facility] [address] [id number] [address] [place] [phone] 07 Oct, 2019 Neuroforaminal stenosis of s pine M99.89 ; Screening breast examination Z12.39 and Other chronic pain G89.29 [facility] [address] [id number] [address] [place] [phone] Sep, [facility] [address] [id number] [address] [place] [phone] Sep, Neuroforaminal stenosis of s pine M99.89 [facility] [address] [id number] [address] [place] [phone] Sep, Encounter for laboratory luisa hidalgo for COVID-19 virus V73.89 [facility] [address] [id number] [address] [place] [phone] August, Neuroforaminal stenosis of s jose M99.89 [facility] [address] [id number] [address] [place] [phone] August, Acute bacterial conjunctivit is of right eye H10.31 [facility] [address] [id number] [address] [place] [phone] August, Low back pain M54.5 ; Other chronic pain G89.29 and Dysuria R30.0 [place] [address] [id number] [address] [place] [address] August, [place] [address] [facility] [id number] [address] [place] [phone] Jul, Neuroforaminal stenosis of s jose M99.89 [facility] [address] [id number] [address] [place] [phone] Jul, Allergic conjunctivitis of b oth eyes H10.13 [facility] [address] [id number] [address] [place] [phone] Jun, Hypokalemia E87.6 [facility] [address] [id number] [address] [place] [phone] Jun, [place] [address] [id number] [address] [place] [address] Jun, Neuroforaminal stenosis of s jose M99.89 [facility] [address] [id number] [address] [place] [phone] 19 Jun, 2019 Lateral epicondylitis, left elbow M77.12 and Medial epicondylitis, left elbow M77.02 [place] [address] [id number] [address] [place] [phone] 16 Jun, 2019 Foraminal stenosis of lumbar region M48.061 ; Segmental dysfunction of thoracic region M99.02 ; Segmental dysfunction of lumbar region M99.03 and Segmental dysfunction of sacral region M99.04 [facility] [address] [id number] [address] [place] [phone] 28 May, 2019 Left elbow pain M25.522 [facility] [address] [id number] [address] [place] [address] May, [facility] [address] [id number] [address] [place] [phone] May, Left elbow pain M25.522 [facility] [address] [id number] [address] [place] [address] May, Neuroforaminal stenosis of s pine M99.89 [place] [address] [id number] [address] [place] [address] May, Rhinosinusitis J32.9 ; Left elbow pain M25.522 and Neck pain M54.2 [place] [address] [id number] [address] [place] [phone] 14 May, 2019 Lateral epicondylitis of lef t elbow M77.12 [place] [address] [id number] [address] [place] [address] Apr, Neuroforaminal stenosis of s pine M99.89 [place] [address] [facility] [id number] [address] [place] [phone] Apr, Essential hypertension I10 a nd Mixed hyperlipidemia E78.2 [facility] [address] [id number] [address] [place] [address] Mar, Neuroforaminal stenosis of s pine M99.89 [facility] [address] [id number] [address] [place] [address] Mar, Epicondylitis, lateral, left M77.12 [facility] [address] [id number] [address] [place] [phone] Mar, [place] [address] [facility] [id number] [address] [place] [address] Mar, Neuroforaminal stenosis of s pine M99.89 [facility] [address] [id number] [address] [place] [phone] Feb, Neuroforaminal stenosis of s pine M99.89 ; Essential hypertension I10 ; Mixed hyperlipidemia E78.2 ; Encounter for immunization Z23 and Seasonal allergies J30.2 [facility] [address] [id number] [address] [place] [phone] Jan, Neuroforaminal stenosis of s pine M99.89 [place] [address] [id number] [address] [place] [address] Dec, Neuroforaminal stenosis of s pine M99.89 [facility] [address] [place] [id number] [address] [place] [address] Dec, Neuroforaminal stenosis of s pine M99.89 [facility] [address] [id number] [address] [place] [phone] Nov, [place] [address] [place] [id number] [address] [place] [address] Nov, Neuroforaminal stenosis of s pine M99.89 [facility] [address] [place] [id number] [address] [place] [phone] Nov, Acute non-recurrent maxillar y sinusitis J01.00 [facility] [address] [place] [id number] [address] [place] [phone] Oct, Hypokalemia E87.6 [facility] [address] [id number] [address] [place] [address] Oct, Wasp sting, undetermined int ent, initial encounter T63.464A and Cellulitis of left lower extremity L03.116 [facility] [address] [place] [id number] [address] [place] [phone] Oct, Neuroforaminal stenosis of s pine M99.89 [place] [address] [id number] [address] [place] [phone] Sep, [place] [address] [id number] [address] [place] [address] 24 Sep, 2018 [place] [address] [facility] [id number] [address] [place] [phone] 18 Sep, 2018 Routine screening for STI (s exually transmitted infection) Z11.3 [place] [address] [id number] [address] [place] [phone] 14 Sep, 2018 Routine screening for STI (s exually transmitted infection) Z11.3 ; Well woman exam with routine gynecological exam Z01.419 and Breast cancer screening Z12.39 [place] [address] [facility] [facility] [id number] [address] [place] [phone] 10 Sep, 2018 Neuroforaminal stenosis of s pine M99.89 [place] [address] [facility] [id number] [address] [place] [address] August, Neuroforaminal stenosis of s pine M99.89 [place] [address] [facility] [id number] [address] [place] [phone] August, Neuroforaminal stenosis of s pine M99.89 ; Chronic pain due to trauma G89.21 and Mixed hyperlipidemia E78.2 [place] [address] [facility] [id number] [address] [place] [address] Jul, Viral upper respiratory illn ess J06.9 and Acute non-recurrent frontal sinusitis J01.10 [place] [address] [facility] [id number] [address] [place] [phone] Jul, Congestion of nasal sinus R0 9.81 [place] [address] [facility] [id number] [address] [place] [phone] Jul, Neuroforaminal stenosis of s pine M99.89 and Essential hypertension I10 [place] [address] [facility] [facility] [id number] [address] [place] [phone] May, Neuroforaminal stenosis of s pine M99.89 [facility] [address] [id number] [address] [place] [phone] May, [facility] [address] [id number] [address] [place] [phone] May, Congestion of nasal sinus R0 9.81 [facility] [address] [id number] [address] [place] [phone] May, [facility] [address] [id number] [address] [place] [phone] Apr, Neuroforaminal stenosis of s pine M99.89 [facility] [address] [id number] [address] [place] [phone] Apr, Neuroforaminal stenosis of s pine M99.89 and Chronic pain due to trauma G89.21 [facility] [address] [id number] [address] [place] [phone] Mar, UTI (urinary tract infection ) N39.0 [facility] [address] [id number] [address] [place] [phone] Mar, Vertigo R42 [facility] [address] [id number] [address] [place] [phone] Mar, Neuroforaminal stenosis of s pine M99.89 [facility] [address] [id number] [address] [place] [phone] Feb, Extensor tendon disruption M 67.89 [facility] [address] [id number] [address] [place] [address] Feb, Neuroforaminal stenosis of s pine M99.89 and High risk medication use Z79.899 [facility] [address] [id number] [address] [place] [phone] Jan, Hypokalemia E87.6 [facility] [address] [id number] [address] [place] [phone] Jan, Flank pain R10.9 and Acute r ight-sided low back pain without sciatica M54.5 [place] [address] [phone] Jan, Hypokalemia E87.6 [place] [address] [address] Jan, [place] [address] [phone] Jan, URI, acute J06.9 [place] [address] [address] Jan, Neuroforaminal stenosis of s jose M99.89 [place] [address] [address] 13 Dec, 2017 Lateral epicondylitis, right elbow M77.11 [place] [address] [phone] 11 Dec, 2017 Allergic rhinitis due to monica rosalina, unspecified seasonality J30.1 and Allergic conjunctivitis of both eyes H10.13 [place] [address] [id number] 10 Dec, 2017 Neuroforaminal stenosis of s pine M99.89 [place] [address] [address] Dec, Mixed hyperlipidemia E78.2 [place] [address] [address] 05 Dec, 2017 Abnormal glucose R73.09 ; Ab normal renal ultrasound R93.429 ; Dysuria R30.0 ; Cystitis without hematuria N30.90 ; Hypokalemia E87.6 ; Mixed hyperlipidemia E78.2 and Hematuria, unspecified type R31.9 [place] [address] [address] Nov, Hypokalemia E87.6 ; Mixed hy perlipidemia E78.2 and Hematuria, unspecified type R31.9 [facility] [address] [id number] [address] [place] [phone] Nov, [facility] [address] [id number] [address] [place] [address] Nov, Hypokalemia E87.6 [facility] [address] [id number] [address] [place] [address] Nov, [facility] [address] [id number] [address] [place] [address] Nov, Abnormal renal ultrasound R9 3.429 [place] [address] [id number] [address] [place] [address] Nov, Abnormal renal ultrasound R9 3.429 [place] [address] [id number] [address] [place] [phone] Nov, Hematuria, unspecified type R31.9 and Neuroforaminal stenosis of spine M99.89 [place] [address] [id number] [address] [place] [address] Nov, Dysuria R30.0 [place] [address] [id number] [address] [place] [phone] Oct, Lateral epicondylitis, right elbow M77.11 [place] [address] [id number] [address] [place] [phone] Oct, Neuroforaminal stenosis of s pine M99.89 ; Visit for TB skin test Z11.1 and Essential hypertension I10 [place] [address] [id number] [address] [place] [address] Oct, [place] [address] [id number] [address] [place] [address] Oct, Neuroforaminal stenosis of s pine M99.89 [place] [address] [facility] [id number] [address] [place] [phone] 10 Oct, 2017 Visit for TB skin test Z11.1 [place] [address] [id number] [address] [place] [phone] 05 Oct, 2017 Cystitis without hematuria N 30.90 [place] [address] [id number] [address] [place] [address] 28 Sep, 2017 Screening breast examination Z12.39 [place] [address] [id number] [address] [place] [phone] 26 Sep, 2017 Dysuria R30.0 and Cystitis w ithout hematuria N30.90 [place] [address] [id number] [address] [place] [address] 14 Sep, 2017 Essential hypertension I10 a nd Neuroforaminal stenosis of spine M99.89 [place] [address] [id number] [address] [place] [phone] 04 Sep, 2017 Abnormal glucose R73.09 [place] [address] [facility] [id number] [address] [place] [address] August, Lateral epicondylitis, right elbow M77.11 [place] [address] [facility] [id number] [address] [place] [phone] August, Screen for STD (sexually tra nsmitted disease) Z11.3 [place] [address] [facility] [id number] [address] [place] [phone] August, Neuroforaminal stenosis of s pine M99.89 ; Mixed hyperlipidemia E78.2 ; Elevated fasting glucose R73.01 ; Screening mammogram, encounter for Z12.31 and Encounter for well woman exam without gynecological exam Z00.00 [place] [address] [id number] [address] [place] [address] August, Neuroforaminal stenosis of s pine M99.89 [place] [address] [facility] [id number] [address] [place] [address] August, Essential hypertension I10 ; Hypokalemia E87.6 and Mixed hyperlipidemia E78.2 [facility] [address] [id number] [address] [place] [address] Jul, [facility] [address] [id number] [address] [place] [address] Jul, Neuroforaminal stenosis of s jose M99.89 [facility] [address] [id number] [address] [place] [address] Jul, Lateral epicondylitis, right elbow M77.11 [facility] [address] [id number] [address] [place] [address] Jul, [facility] [address] [id number] [address] [place] [address] Jun, High ankle sprain of right l ower extremity, initial encounter S93.431A [place] [address] [id number] [address] [place] [address] Jun, Essential hypertension I10 [facility] [address] [id number] [address] [place] [address] Jun, [facility] [address] [id number] [address] [place] [address] Jun, [facility] [address] [id number] [address] [place] [address] Jun, Neuroforaminal stenosis of s pine M99.89 [facility] [address] [id number] [address] [place] [address] Jun, Pain of right upper extremit y M79.601 and Essential hypertension I10 [facility] [address] [id number] [address] [place] [address] Jun, [place] [address] [id number] [address] [place] [address] Jun, Dysuria R30.0 ; Acute cystit is with hematuria N30.01 and Screen for STD (sexually transmitted disease) Z11.3 [place] [address] [id number] May, Chronic pain due to trauma G 89.21 [place] [address] [address] May, Essential hypertension I10 [place] [address] [address] May, Neuroforaminal stenosis of s pine M99.89 [place] [address] [address] Apr, Allergic reaction, initial e ncounter T78.40XA [place] [address] [address] Apr, Low back pain, unspecified b ack pain laterality, unspecified chronicity, with sciatica presence unspecified M54.5 ; Acute cystitis with hematuria N30.01 ; Neuroforaminal stenosis of 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 ; Bilateral acute serous otitis media, recurrence not specified H65.03 ; Mixed hyperlipidemia E78.2 ; Essential hypertension I10 ; Immunization counseling Z71.89 and Encounter for immunization Z23 [place] [address] [address] Apr, Neck pain M54.2 [place] [address] [address] Mar, Neuroforaminal stenosis of s pine M99.89 [place] [address] [place] [id number] [address] [place] [address] Mar, Pharyngitis due to other org anism J02.8 [place] [address] [address] Feb, Neuroforaminal stenosis of s pine M99.89 [place] [address] [address] 08 Feb, 2017 UTI (urinary tract infection ) N39.0 [place] [address] [place] [id number] [address] [place] [phone] 07 Feb, 2017 Recent urinary tract infecti on Z87.440 ; Neuroforaminal stenosis of spine M99.89 ; Neck pain M54.2 ; Chronic pain due to trauma G89.21 and Recurrent UTI N39.0 [facility] [address] [id number] [address] [place] [address] Feb, [facility] [address] [id number] [address] [place] [address] Jan, Neuroforaminal stenosis of s pine M99.89 [facility] [address] [id number] [address] [place] [address] Dec, Neuroforaminal stenosis of s pine M99.89 [facility] [address] [id number] [address] [place] [phone] 18 Dec, 2016 Acute seasonal allergic rhin itis due to pollen J30.1 [facility] [address] [id number] [address] [place] [address] 08 Dec, 2016 [facility] [address] [id number] [address] [place] [phone] 08 Dec, 2016 Acute seasonal allergic rhin itis, unspecified trigger J30.2 ; Allergic conjunctivitis of both eyes H10.13 and Dysfunction of both eustachian tubes H69.83 [facility] [address] [id number] [address] [place] [address] Dec, [facility] [address] [id number] [address] [place] [address] Dec, Nevus D22.9 [facility] [address] [id number] [address] [place] [phone] Nov, Chronic pain due to trauma G 89.21 and Neuroforaminal stenosis of spine M99.89 [facility] [address] [id number] [address] [place] [phone] Nov, Neuroforaminal stenosis of s pine M99.89 ; Essential hypertension I10 ; Mixed hyperlipidemia E78.2 ; Hypokalemia E87.6 ; Neck pain M54.2 and Nevus D22.9 [facility] [address] [id number] [address] [place] [address] Oct, Neuroforaminal stenosis of s pine M99.89 [facility] [address] [id number] [address] [place] [phone] Sep, Neuroforaminal stenosis of s pine M99.89 [facility] [address] [id number] [address] [place] [phone] Sep, [facility] [address] [id number] [address] [place] [phone] August, [facility] [address] [id number] [address] [place] [phone] August, Neck pain M54.2 and Neurofor aminal stenosis of spine M99.89 [facility] [address] [id number] [address] [place] [phone] August, Routine gynecological examin ation Z01.419 and Screening breast examination Z12.39 [facility] [address] [id number] [address] [place] [phone] Jul, [facility] [address] [id number] [address] [place] [phone] Jul, [facility] [address] [id number] [address] [place] [phone] Jul, Neuroforaminal stenosis of s pine M99.89 [facility] [address] [id number] [address] [place] [phone] Jul, [facility] [address] [id number] [address] [place] [phone] Jul, Neuroforaminal stenosis of l umbar 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 [facility] [address] [id number] [address] [place] [id number] Jul, [facility] [address] [facility] [id number] [address] [place] [phone] Jul, [facility] [address] [facility] [id number] [address] [place] [phone] Jun, Neuroforaminal stenosis of s jose M99.89 [facility] [address] [facility] [id number] [address] [place] [phone] Jun, Uterine leiomyoma, unspecifi ed location D25.9 and Allergic reaction caused by a drug, initial encounter T78.40XA [facility] [address] [facility] [id number] [address] [place] [phone] Jun, [facility] [address] [facility] [id number] [address] [place] [phone] May, UTI symptoms R39.9 and Pain of right sacroiliac joint M53.3 [place] [address] [place] [id number] [address] [place] [phone] May, Neuroforaminal stenosis of s pine M99.89 [place] [address] [facility] [id number] [address] [place] [phone] May, [facility] [address] [facility] [id number] [address] [place] [phone] May, Acute mucoid otitis media of left ear H65.112 and Acute non- recurrent maxillary sinusitis J01.00 [place] [address] [place] [id number] [address] [place] [phone] May, Acute bacterial conjunctivit is of both eyes H10.33 ; Left arm pain M79.602 and Hypokalemia E87.6 [place] [address] [facility] [id number] [address] [place] [phone] Apr, [facility] [address] [facility] [id number] [address] [place] [phone] Apr, Neuroforaminal stenosis of s pine M99.89 ; Neck pain M54.2 ; Chronic pain due to trauma G89.21 ; Mixed hyperlipidemia E78.2 ; Essential hypertension I10 and Hypokalemia E87.6 [facility] [address] [facility] [id number] [address] [place] [id number] Mar, Oral candidiasis B37.0 ; Nathaniel roforaminal stenosis of spine M99.89 ; Neck pain M54.2 and Chronic pain due to trauma G89.21 [facility] [address] [id number] [address] [place] [id number] Feb, [facility] [address] [id number] [address] [place] [address] Feb, [facility] [address] [facility] [id number] [address] [place] [address] Feb, UTI (urinary tract infection ) N39.0 [facility] [address] [place] [id number] [address] [place] [address] Feb, Dysuria R30.0 [facility] [address] [facility] [id number] [address] [place] [address] Feb, Dysuria R30.0 [facility] [address] [facility] [id number] [address] [place] [address] Feb, Neuroforaminal stenosis of s pine M99.89 ; Neck pain M54.2 ; Essential hypertension I10 ; Chronic pain due to trauma G89.21 ; Dysuria R30.0 ; Abnormal MRI, shoulder R93.8 and Acute cystitis without hematuria N30.00 [facility] [address] [facility] [id number] [address] [place] [address] Jan, [facility] [address] [facility] [id number] [address] [place] [phone] Jan, [facility] [address] [facility] [id number] [address] [place] [phone] Jan, [facility] [address] [facility] [id number] [address] [place] [address] Jan, Abnormal MRI R93.8 [facility] [address] [id number] [address] [place] [phone] 29 Dec, 2015 [facility] [address] [id number] [address] [place] [phone] 15 Dec, 2015 Acute pain of left shoulder M25.512 [facility] [address] [id number] [address] [place] [phone] 09 Dec, 2015 [facility] [address] [id number] [address] [place] [id number] 08 Dec, 2015 [facility] [address] [id number] [address] [place] [phone] 07 Dec, 2015 Acute pain of left shoulder M25.512 [facility] [address] [id number] [address] [place] [address] Nov, [facility] [address] [id number] [address] [place] [address] Nov, Neuroforaminal stenosis of s pine M99.89 ; Neck pain M54.2 ; Abnormal mammogram R92.8 ; Essential hypertension I10 and Chronic pain due to trauma G89.21 [facility] [address] [id number] [address] [place] [phone] Nov, [facility] [address] [id number] [address] [place] [phone] Oct, Acute stress disorder F43.0 [facility] [address] [id number] [address] [place] [phone] Oct, [facility] [address] [id number] [address] [place] [phone] Oct, [facility] [address] [id number] [address] [place] [phone] Oct, [facility] [address] [id number] [address] [place] [address] Sep, [facility] [address] [id number] [address] [place] [address] August, [facility] [address] [id number] [address] [place] [address] Jul, Neuroforaminal stenosis of s pine M99.89 ; Neck pain M54.2 ; Abnormal mammogram R92.8 and Essential hypertension I10 [facility] [address] [id number] [address] [place] [phone] Jul, [facility] [address] [id number] [address] [place] [address] Jul, [facility] [address] [id number] [address] [place] [address] Jul, Abnormal mammogram R92.8 [facility] [address] [id number] [address] [place] [address] Jul, [facility] [address] [facility] [id number] [address] [place] [phone] Jul, UTI (urinary tract infection ) N39.0 [facility] [address] [id number] [address] [place] [phone] Jul, Dysuria R30.0 [facility] [address] [id number] [address] [place] [address] Jun, [facility] [address] [id number] [address] [place] [phone] Jun, [facility] [address] [id number] [address] [place] [address] Jun, Hypokalemia E87.6 and Hematu martina R31.9 [facility] [address] [id number] [address] [place] [address] Jun, Hypokalemia E87.6 [facility] [address] [id number] [address] [place] [address] Jun, [facility] [address] [address] Jun, Hypokalemia E87.6 [place] [address] [address] Jun, Hypokalemia E87.6 [place] [address] [address] Jun, Neuroforaminal stenosis of s pine M99.89 ; Hypokalemia E87.6 ; Neck pain M54.2 ; Essential hypertension I10 ; Mixed hyperlipidemia E78.2 and Screening breast examination Z12.39 [place] [address] [address] Jun, Dysuria R30.0 ; UTI (urinary tract infection) N39.0 and Hematuria R31.[address] [address] May, [facility] [address] [address] May, High risk sexual behavior Z7 2.51 ; Hypokalemia E87.6 ; Neuroforaminal stenosis of spine M99.89 ; Neck pain M54.2 ; Essential hypertension I10 ; Mixed hyperlipidemia E78.2 ; STD exposure Z20.2 and Concern about STD in female without diagnosis Z71.1 [place] [address] [id number] 16 May, 2015 Neuroforaminal stenosis of s pine M99.89 ; Neck pain M54.2 ; Hypokalemia E87.6 ; Essential hypertension I10 and Mixed hyperlipidemia E78.2 [place] [address] [id number] May, [facility] [address] [place] [id number] [address] [place] [address] 08 May, 2015 High risk sexual behavior Z7 2.51 ; STD exposure Z20.2 and Concern about STD in female without diagnosis Z71.1 [place] [address] [address] May, [place] [address] [address] Apr, Neuroforaminal stenosis of s pine M99.89 ; Mixed hyperlipidemia E78.2 ; Essential hypertension I10 and Hypokalemia E87.6 [place] [address] [address] Mar, [place] [address] [address] Mar, Hypokalemia E87.6 [place] [address] [address] Mar, Neuroforaminal stenosis of s pine M99.89 ; Mixed hyperlipidemia E78.2 ; Neck pain M54.2 ; Essential hypertension I10 ; Abnormal fasting glucose R73.09 ; Hypokalemia E87.6 and Constipation K59.00 [place] [address] [address] Feb, Neuroforaminal stenosis of s pine M99.89 ; Mixed hyperlipidemia E78.2 ; Neck pain M54.2 ; Essential hypertension I10 ; Abnormal fasting glucose R73.09 ; Hypokalemia E87.6 and Constipation K59.00 [place] [address] [address] Feb, Elevated fasting blood sugar R73.01 [place] [address] [address] Feb, Elevated fasting blood sugar R73.01 [place] [address] [address] Feb, Hair loss L65.9 [place] [address] [address] Feb, Sinusitis J32.9 ; Essential hypertension I10 and Hair loss L65.9 [facility] [address] [id number] [address] [place] [phone] Jan, [facility] [address] [id number] [address] [place] [address] Jan, Essential hypertension I10 ; Neuroforaminal stenosis of spine M99.89 ; Neck pain M54.2 ; Mixed hyperlipidemia E78.2 and Anxiety F41.9 [place] [address] [id number] [address] [place] [address] Jan, [place] [address] [facility] [id number] [place] [address] Jan, Mixed hyperlipidemia E78.2 ; Essential (primary) hypertension I10 ; Strain of muscle, fascia and tendon at neck level, subsequent encounter S16.1XXD and Tension-type headache, unspecified, not intractable G44.209 [place] [address] [id number] [address] [place] [address] Dec, Lumbar back pain 724.2 and N euroforaminal stenosis of spine 724.00 [place] [address] [id number] [address] [place] [address] Nov, [place] [address] [id number] [address] [place] [address] Nov, Lumbar back pain 724.2 and N euroforaminal stenosis of spine 724.00 [place] [address] [id number] [address] [place] [address] Nov, Edema 782.3 ; Lumbar back pa in 724.2 ; Essential hypertension, benign 401.1 ; Hyperlipemia 272.4 ; Neuroforaminal stenosis of spine 724.00 and Post-concussion headache 339.20 [place] [address] [id number] [address] [place] [address] Nov, [place] [address] [id number] [address] [place] [address] Nov, [facility] [address] [id number] [address] [place] [address] Oct, Essential hypertension, sheridan gn 401.1 [facility] [address] [facility] [id number] [address] [place] [address] Oct, Edema 782.3 ; Lumbar back pa in 724.2 ; Essential hypertension, benign 401.1 ; Hyperlipemia 272.4 ; Neuroforaminal stenosis of 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.00 and Post-concussion headache 339.20 [facility] [address] [id number] [address] [place] [address] Oct, [place] [address] [facility] [id number] [address] [place] [address] Oct, Edema 782.3 [place] [address] [facility] [id number] [address] [place] [phone] Oct, Lumbar back pain 724.2 [place] [address] [id number] [address] [place] [phone] Oct, Cervicalgia 723.1 ; Lumbar b ack pain 724.2 and High risk medication use V58.69 [place] [address] [facility] [id number] [address] [place] [phone] Sep, [place] [address] [facility] [id number] [address] [place] [address] Sep, Lumbar strain 847.2 [place] [address] [facility] [id number] [address] [place] [address] August, Edema 782.3 and Eustachian t ube dysfunction 381.81 [place] [address] [facility] [id number] [address] [place] [address] August, [place] [address] [facility] [id number] [address] [place] [address] August, Eustachian tube dysfunction 381.81 [facility] [address] [id number] [address] [place] [address], [place] [address] 29 Jul, 2014 Otalgia 388.70 and Otitis me jonathon 382.9 [facility] [address] [id number] [address] [place] [address], [place] [address] Jul, [facility] [address] [id number] [address] [place] [address], [place] [address] Jul, [facility] [address] [id number] [address] [place] [address], [place] [address] Jul, [facility] [address] [id number] [address] [place] [address], [place] [address] 14 Jul, 2014 [facility] [address] [id number] [address] [place] [address], [place] [address] Jul, [facility] [address] [id number] [address] [place] [address], [place] [address] Jun, [facility] [address] [id number] [address] [place] [address], [place] [address] Jun, [facility] [address] [id number] [address] [place] [address], [place] [address] 16 Jun, 2014 [facility] [address] [id number] [address] [place] [address], [place] [address] May, [facility] [address] [id number] [address] [place] [address], [place] [address] May, [facility] [address] [id number] [address] [place] [address], [place] [address] 23 May, 2014 [facility] [address] [id number] [address] [place] [address], [place] [address] May, [facility] [address] [id number] [address] [place] [address], [place] [address] May, [facility] [address] [id number] [address] [place] [address], [place] [address] May, [facility] [address] [id number] [address] [place] [address], [place] [address] May, [facility] [address] [id number] [address] [place] [address], [place] [address] May, [facility] [address] [id number] [address] [place] [address], [place] [address] May, [facility] [address] [id number] [address] [place] [address], [place] [address] May, [facility] [address] [id number] [address] [place] [address], [place] [address] Apr, [facility] [address] [id number] [address] [place] [address], [place] [address] Apr, [facility] [address] [id number] [address] [place] [address], [place] [address] Apr, [facility] [address] [id number] [address] [place] [address], [place] [address] Apr, [facility] [address] [id number] [address] [place] [address], [place] [address] Apr, [facility] [address] [id number] [address] [place] [address], [place] [address] Apr, [facility] [address] [id number] [address] [place] [address], [place] [address] Apr, [facility] [address] [id number] [address] [place] [address], [place] [address] Apr, [facility] [address] [id number] [address] [place] [address], [place] [address] Apr, [facility] [address] [id number] [address] [place] [address], [place] [address] Apr, [facility] [address] [id number] [address] [place] [address], [place] [address] Apr, [facility] [address] [id number] [address] [place] [address], [place] [address] Apr, [facility] [address] [id number] [address] [place] [address], [place] [address] Apr, [facility] [address] [id number] [address] [place] [address], [place] [address] Apr, [facility] [address] [id number] [address] [place] [address], [place] [address] Apr, [facility] [address] [id number] [address] [place] [address], [place] [address] Mar, [facility] [address] [id number] [address] [place] [address], [place] [address] Mar, [facility] [address] [id number] [address] [place] [address], [place] [address] Mar, [facility] [address] [id number] [address] [place] [address], [place] [address] Mar, [facility] [address] [id number] [address] [place] [address], [place] [address] Feb, [facility] [address] [id number] [address] [place] [address], [place] [address] Feb, [facility] [address] [id number] [address] [place] [address], [place] [address] Feb, [facility] [address] [id number] [address] [place] [address], [place] [address] Feb, [facility] [address] [id number] [address] [place] [address] Jan, [facility] [address] [id number] [address] [place] [address], [place] [address] Jan, [facility] [address] [id number] [address] [place] [address], [place] [address] Jan, [facility] [address] [id number] [address] [place] [address], [place] [address] Jan, [facility] [address] [id number] [address] [place] [address], [place] [address] Jan, [facility] [address] [id number] [address] [place] [address], [place] [address] Jan, [facility] [address] [id number] [address] [place] [address], [place] [address] Jan, [facility] [address] [id number] [address] [place] [address], [place] [address] Jan, [facility] [address] [id number] [address] [place] [address], [place] [address] Dec, [facility] [address] [id number] [address] [place] [address], [place] [address] Dec, [facility] [address] [id number] [address] [place] [address], [place] [address] Dec, [facility] [address] [id number] [address] [place] [address], [place] [address] Dec, [facility] [address] [id number] [address] [place] [address], [place] [address] Oct, [facility] [address] [id number] [address] [place] [address], [place] [address] Oct, [facility] [address] [id number] [address] [place] [address], [place] [id number] Oct, [facility] [address] [id number] [address] [place] [address], [place] [address] Oct, 2013 [facility] [address] [id number] [address] [place] [address], [place] [id number] Oct, [facility] [address] [id number] [address] [place] [address], [place] [address] Oct, 2013 [facility] [address] [id number] [address] [place] [address], [place] [address] Oct, 2013 [facility] [address] [id number] [address] [place] [address], [place] [address] Oct, [facility] [address] [id number] [address] [place] [address], [place] [address] Sep, [facility] [address] [id number] [address] [place] [address], [place] [address] Sep, [facility] [address] [id number] [address] [place] [address], [place] [address] Sep, [facility] [address] [id number] [address] [place] [address], [place] [address] Sep, [facility] [address] [id number] [address] [place] [address], [place] [address] Sep, [facility] [address] [id number] [address] [place] [address], [place] [address] Sep, [facility] [address] [id number] [address] [place] [address], [place] [address] Sep, [facility] [address] [id number] [address] [place] [address], [place] [address] Sep, [facility] [address] [id number] [address] [place] [address], [place] [address] Sep, [facility] [address] [id number] [address] [place] [address], [place] [address] Sep, [facility] [address] [id number] [address] [place] [address], [place] [address] August, [facility] [address] [id number] [address] [place] [address], [place] [address] August, [facility] [address] [id number] [address] [place] [address], [place] [id number] August, [facility] [address] [id number] [address] [place] [address], [place] [id number] August, [facility] [address] [id number] [address] [place] [address], [place] [id number] August, [facility] [address] [id number] [address] [place] [address], [place] [id number] August, [facility] [address] [id number] [address] [place] [address], [place] [id number] August, [facility] [address] [id number] [address] [place] [address], [place] [id number] August, [facility] [address] [id number] [address] [place] [address], [place] [id number] August, [facility] [address] [id number] [address] [place] [address], [place] [address] August, [facility] [address] [id number] [address] [place] [address], [place] [address] August, [facility] [address] [id number] [address] [place] [address], [place] [id number] August, [facility] [address] [id number] [address] [place] [address], [place] [id number] Jul, [facility] [address] [id number] [address] [place] [address], [place] [id number] Jul, [facility] [address] [id number] [address] [place] [address], [place] [id number] Jul, [facility] [address] [id number] [address] [place] [address], [place] [id number] Jul, [facility] [address] [id number] [address] [place] [address], [place] [id number] Jul, [facility] [address] [id number] [address] [place] [address], [place] [id number] Jul, [facility] [address] [id number] [address] [place] [address], [place] [id number] Jun, [facility] [address] [id number] [address] [place] [address], [place] [id number] Jun, [facility] [address] [id number] [address] [place] [address], [place] [id number] May, [facility] [address] [id number] [address] [place] [address], [place] [id number] May, 2013 [facility] [address] [id number] [address] [place] [address], [place] [id number] Apr, [facility] [address] [id number] [address] [place] [address], [place] [id number] Apr, [facility] [address] [id number] [address] [place] [address], [place] [id number] Apr, [facility] [address] [id number] [address] [place] [address], [place] [id number] Apr, [facility] [address] [id number] [address] [place] [address], [place] [id number] Apr, [facility] [address] [id number] [address] [place] [address], [place] [id number] Apr, [facility] [address] [id number] [address] [place] [address], [place] [id number] Apr, [facility] [address] [id number] [address] [place] [address], [place] [id number] Apr, [facility] [address] [id number] [address] [place] [address], [place] [id number] Apr, [facility] [address] [id number] [address] [place] [address], [place] [id number] Apr, [facility] [address] [id number] [address] [place] [address], [place] [id number] Apr, [facility] [address] [id number] [address] [place] [address], [place] [id number] Apr, [facility] [address] [id number] [address] [place] [address], [place] [id number] Apr, [facility] [address] [id number] [address] [place] [address], [place] [id number] Mar, [facility] [address] [id number] [address] [place] [address] [address] Mar, [facility] [address] [id number] [address] [place] [address], [place] [id number] Mar, [facility] [address] [id number] [address] [place] [address], [place] [address] Mar, [facility] [address] [id number] [address] [place] [address], [place] [address] Feb, [facility] [address] [id number] [address] [place] [address], [place] [address] Feb, [facility] [address] [id number] [address] [place] [address], [place] [address] Feb, [facility] [address] [id number] [address] [place] [address], [place] [address] Feb, [facility] [address] [id number] [address] [place] [address], [place] [address] Jan, [facility] [address] [id number] [address] [place] [phone] Jan, [facility] [address] [id number] [address] [place] [address] Jan, [facility] [address] [id number] [address] [place] [address] Jan, [facility] [address] [id number] [address] [place] [address] Jan, [facility] [address] [id number] [address] [place] [phone] Jan, [facility] [address] [id number] [address] [place] [id number] Jan, [facility] [address] [id number] [address] [place] [phone] Jan, [facility] [address] [id number] [address] [place] [phone] Jan, [facility] [address] [id number] [address] [place] [address], [place] [id number] 26 Dec, 2012 [facility] [address] [id number] [address] [place] [address], [place] [id number] 16 Dec, 2012 [facility] [address] [id number] [address] [place] [address], [place] [id number] 16 Dec, 2012 [facility] [address] [id number] [address] [place] [address], [place] [id number] 13 Dec, 2012 [facility] [address] [id number] [address] [place] [address], [place] [id number] 17 Nov, 2012 [facility] [address] [id number] [address] [place] [address], [place] [id number] 17 Nov, 2012 [facility] [address] [id number] [address] [place] [address], [place] [address] Nov, [facility] [address] [id number] [address] [place] [address], [place] [id number] 05 Nov, 2012 [facility] [address] [id number] [address] [place] [address], [place] [address] Oct, [facility] [address] [id number] [address] [place] [address], [place] [address] Sep, [facility] [address] [id number] [address] [place] [address], [place] [address] August, [facility] [address] [id number] [address] [place] [address], [place] [address] August, [facility] [address] [id number] [address] [place] [address], [place] [address] August, [facility] [address] [id number] [address] [place] [address], [place] [address] August, [facility] [address] [id number] [address] [place] [address], [place] [address] August, [facility] [address] [id number] [address] [place] [address], [place] [id number] August, [facility] [address] [id number] [address] [place] [address], [place] [address] August, [facility] [address] [id number] [address] [place] [address], [place] [address] August, [facility] [address] [id number] [address] [place] [address], [place] [address] August, [facility] [address] [id number] [address] [place] [address], [place] [address] August, [facility] [address] [id number] [address] [place] [address], [place] [address] August, [facility] [address] [id number] [address] [place] [address], [place] [address] August, [facility] [address] [id number] [address] [place] [address], [place] [id number] Jul, [facility] [address] [id number] [address] [place] [address], [place] [address] Jul, [facility] [address] [id number] [address] [place] [address], [place] [address] Jul, [facility] [address] [id number] [address] [place] [address], [place] [id number] 15 Jul, 2012 [facility] [address] [id number] [address] [place] [address], [place] [address] Jul, [facility] [address] [id number] [address] [place] [address], [place] [address] Jul, [facility] [address] [id number] [address] [place] [address], [place] [address] Jul, [facility] [address] [id number] [address] [place] [address], [place] [address] Jul, [facility] [address] [id number] [address] [place] [address], [place] [address] Jul, [facility] [address] [id number] [address] [place] [address], [place] [id number] Jul, [facility] [address] [id number] [address] [place] [address], [place] [address] Jul, [facility] [address] [id number] [address] [place] [address], [place] [address] Jun, [facility] [address] [id number] [address] [place] [address], [place] [address] Jun, [facility] [address] [id number] [address] [place] [address], [place] [address] Jun, [facility] [address] [id number] [address] [place] [address], [place] [address] Jun, [facility] [address] [id number] [address] [place] [address], [place] [id number] May, [facility] [address] [id number] [address] [place] [address], [place] [address] May, [facility] [address] [id number] [address] [place] [address], [place] [address] May, [facility] [address] [id number] [address] [place] [address], [place] [id number] May, [facility] [address] [id number] [address] [place] [address], [place] [address] May, [facility] [address] [id number] [address] [place] [address], [place] [address] May, [facility] [address] [id number] [address] [place] [address], [place] [address] Apr, [facility] [address] [id number] [address] [place] [address], [place] [address] Apr, [facility] [address] [id number] [address] [place] [address], [place] [id number] Apr, [facility] [address] [id number] [address] [place] [address], [place] [id number] Apr, [facility] [address] [id number] [address] [place] [address], [place] [address] 15 Mar, 2012 [facility] [address] [id number] [address] [place] [address], [place] [id number] 14 Mar, 2012 [facility] [address] [id number] [address] [place] [address], [place] [address] 14 Mar, 2012 [facility] [address] [id number] [address] [place] [address], [place] [address] 14 Mar, 2012 [facility] [address] [id number] [address] [place] [address], [place] [id number] 14 Mar, 2012 [facility] [address] [id number] [address] [place] [address], [place] [id number] 06 Mar, 2012 [facility] [address] [id number] [address] [place] [address], [place] [address] Mar, [facility] [address] [id number] [address] [place] [address], [place] [address] Feb, [facility] [address] [id number] [address] [place] [address], [place] [address] Feb, [facility] [address] [id number] [address] [place] [address], [place] [id number] Feb, [facility] [address] [id number] [address] [place] [address], [place] [id number] Feb, [facility] [address] [id number] [address] [place] [address], [place] [address] Jan, [facility] [address] [id number] [address] [place] [address], [place] [address] 11 Jan, 2012 [facility] [address] [id number] [address] [place] [address], [place] [id number] 10 Jan, 2012 [facility] [address] [id number] [address] [place] [address], [place] [address] 10 Jan, 2012 [facility] [address] [id number] [address] [place] [address], [place] [address] Jan, [facility] [address] [id number] [address] [place] [address], [place] [address] Jan, [facility] [address] [id number] [address] [place] [address], [place] [id number] Dec, [facility] [address] [id number] [address] [place] [address], [place] [address] Dec, [facility] [address] [id number] [address] [place] [address], [place] [address] Nov, [facility] [address] [id number] [address] [place] [address], [place] [address] Sep, [facility] [address] [id number] [address] [place] [address], [place] [address] August, [facility] [address] [id number] [address] [place] [address], [place] [address] August, [facility] [address] [id number] [address] [place] [address], [place] [address] August, [facility] [address] [id number] [address] [place] [address], [place] [address] August, [facility] [address] [id number] [address] [place] [address], [place] [address] August, [facility] [address] [id number] [address] [place] [address], [place] [address] Jun, [facility] [address] [id number] [address] [place] [address], [place] [address] Jun, [facility] [address] [id number] [address] [place] [address], [place] [address] Apr, [facility] [address] [id number] [address] [place] [address], [place] [id number] Apr, [facility] [address] [id number] [address] [place] [address], [place] [address] Mar, [facility] [address] [id number] [address] [place] [id number] 22 Feb, 2011 [facility] [address] [id number] [address] [place] [id number] 14 Feb, 2011 [facility] [address] [id number] [address] [place] [id number] 14 Feb, 2011 [facility] [address] [id number] [address] [place] [id number] 17 Jan, 2011 [facility] [address] [id number] [address] [place] [id number] 15 Jan, 2011 [facility] [address] [id number] [address] [place] [id number] 15 Jan, 2011 [facility] [address] [id number] [address] [place] [phone] Jan, [facility] [address] [id number] [address] [place] [phone] 15 May, 2010 [facility] [address] [id number] [address] [place] [phone] Mar, [facility] [address] [id number] [address] [place] [id number] Oct, [facility] [address] [id number] [address] [place] [id number] Sep, [facility] [address] [id number] [address] [place] [id number] Mar, [facility] [address] [id number] [address] [place] [phone] Jan, [facility] [address] [id number] [address] [place] [phone] Jan, [facility] [address] [id number] [address] [place] [address] May, IMMUNIZATIONS No Known Immunizations SOCIAL HISTORY [...] squamous atypia (no definite dyplasia). Performed at [facility] Dr. Joy. Medical History [...]
--- OUTSIDE RECORDS SUMMARY | 2019-11-23 05:43 | XMS REPORT ---
Author Author Liana Coe Doctor Organization [facility] Address Unknown Phone Unavailable Care Team Providers Care [employer] Name Role Phone Migration, Doctor Unavailable Unavailable PROBLEMS Type Condition ICD9-CM Code ALF53-HY Code Onset Dates Condition S tatus SNOMED Code Problem Hematuria, unspecified type R31.9 Ac tive 94306113 Problem Abnormal glucose R73.09 Active 102 765700 Problem Anxiety F41.9 Active 79050310 Problem Neck pain M54.2 Active 25432901 Problem Essential hypertension I10 Active 63256038 Problem Rhinosinusitis J32.9 Active 21738 4004 Problem Neuroforaminal stenosis of spine M99.89 Active [id number] Problem Other chronic pain G89.29 Active 8 9755138 Problem Abnormal renal ultrasound R93.429 Acti ve [id number] Problem Mixed hyperlipidemia E78.2 Active 15423478 Problem Hypokalemia E87.6 Active 49816531 Problem Chronic pain due to trauma G89.21 Act juanis 372013812 Problem Seasonal allergies J30.2 Active 4 [id number] ALLERGIES No Information ENCOUNTERS Encounter Location Date Diagnosis [facility] [address] [facility] [place] [id number] [address] [place] [address] Oct, [facility] [address] [facility] [place] [id number] [address] [place] [address] Sep, [facility] [address] [facility] [place] [id number] [address] [place] [address] Sep, Neuroforaminal stenosis of s pine M99.89 [facility] [address] [facility] [place] [id number] [address] [place] [address] Sep, Encounter for laboratory luisa ting for COVID-19 virus V73.89 [facility] [address] [facility] [place] [id number] [address] [place] [address] August, Neuroforaminal stenosis of s pine M99.89 [facility] [address] [id number] [address] [place] [address] August, Acute bacterial conjunctivit is of right eye H10.31 [facility] [address] [id number] [address] [place] [address] August, Low back pain M54.5 ; Other chronic pain G89.29 and Dysuria R30.0 [facility] [address] [id number] [address] [place] [address] August, [facility] [address] [id number] [address] [place] [address] Jul, Neuroforaminal stenosis of ayla garcia M99.89 [facility] [address] [id number] [address] [place] [address] Jul, Allergic conjunctivitis of b oth eyes H10.13 [facility] [address] [id number] [address] [place] [address] Jun, Hypokalemia E87.6 [facility] [address] [id number] [address] [place] [address] Jun, [place] [address] [id number] [address] [place] [address] Jun, Neuroforaminal stenosis of ayla garcia M99.89 [facility] [address] [id number] [address] [place] [address] Jun, Lateral epicondylitis, left elbow M77.12 and Medial epicondylitis, left elbow M77.02 [facility] [address] [id number] [address] [place] [address] Jun, Foraminal stenosis of lumbar region M48.061 ; Segmental dysfunction of thoracic region M99.02 ; Segmental dysfunction of lumbar region M99.03 and Segmental dysfunction of sacral region M99.04 [facility] [address] [id number] [address] [place] [address] May, Left elbow pain M25.522 [facility] [address] [id number] [address] [place] [address] May, [facility] [address] [id number] [address] [place] [address] May, Left elbow pain M25.522 [facility] [address] [id number] [address] [place] [address] May, Neuroforaminal stenosis of s pine M99.89 [facility] [address] [id number] [address] [place] [address] May, Rhinosinusitis J32.9 ; Left elbow pain M25.522 and Neck pain M54.2 [facility] [address] [id number] [address] [place] [address] 14 May, 2019 Lateral epicondylitis of lef t elbow M77.12 [facility] [address] [id number] [address] [place] [address] Apr, Neuroforaminal stenosis of s pine M99.89 [facility] [address] [id number] [address] [place] [address] Apr, Essential hypertension I10 a nd Mixed hyperlipidemia E78.2 [facility] [address] [id number] [address] [place] [address] Mar, Neuroforaminal stenosis of s pine M99.89 [facility] [address] [id number] [address] [place] [address] Mar, Epicondylitis, lateral, left M77.12 [facility] [address] [id number] [address] [place] [address] Mar, [facility] [address] [id number] [address] [place] [address] Mar, Neuroforaminal stenosis of s pine M99.89 [facility] [address] [id number] [address] [place] [address] Feb, Neuroforaminal stenosis of s pine M99.89 ; Essential hypertension I10 ; Mixed hyperlipidemia E78.2 ; Encounter for immunization Z23 and Seasonal allergies J30.2 [facility] [address] [facility] [id number] [address] [place] [address] Jan, Neuroforaminal stenosis of s pine M99.89 [facility] [address] [facility] [place] [id number] [address] [place] [address] Dec, Neuroforaminal stenosis of s pine M99.89 [facility] [address] [facility] [place] [id number] [address] [place] [address] Dec, Neuroforaminal stenosis of s pine M99.89 [facility] [address] [facility] [id number] [address] [place] [address] Nov, [facility] [address] [facility] [place] [id number] [address] [place] [address] Nov, Neuroforaminal stenosis of s pine M99.89 [facility] [address] [facility] [place] [id number] [address] [place] [address] Nov, Acute non-recurrent maxillar y sinusitis J01.00 [facility] [address] [facility] [place] [id number] [address] [place] [address] Oct, Hypokalemia E87.6 [facility] [address] [facility] [place] [id number] [address] [place] [address] Oct, Wasp sting, undetermined int ent, initial encounter T63.464A and Cellulitis of left lower extremity L03.116 [facility] [address] [facility] [place] [id number] [address] [place] [address] Oct, Neuroforaminal stenosis of s pine M99.89 [facility] [address] [facility] [place] [id number] [address] [place] [address] Sep, [facility] [address] [facility] [place] [id number] [address] [place] [address] 24 Sep, 2018 [place] [address] [facility] [place] [id number] [address] [place] [address] 18 Sep, 2018 Routine screening for STI (s exually transmitted infection) Z11.3 [place] [address] [facility] [place] [id number] [address] [place] [address] 14 Sep, 2018 Routine screening for STI (s exually transmitted infection) Z11.3 ; Well woman exam with routine gynecological exam Z01.419 and Breast cancer screening Z12.39 [place] [address] [id number] [address] [place] [address] 10 Sep, 2018 Neuroforaminal stenosis of s pine M99.89 [place] [address] [facility] [place] [id number] [address] [place] [address] August, Neuroforaminal stenosis of s pine M99.89 [place] [address] [place] [id number] [address] [place] [address] August, Neuroforaminal stenosis of s pine M99.89 ; Chronic pain due to trauma G89.21 and Mixed hyperlipidemia E78.2 [place] [address] [facility] [place] [id number] [address] [place] [address] Jul, Viral upper respiratory illn ess J06.9 and Acute non-recurrent frontal sinusitis J01.10 [place] [address] [place] [id number] [address] [place] [address] Jul, Congestion of nasal sinus R0 9.81 [place] [address] [facility] [place] [id number] [address] [place] [address] Jul, Neuroforaminal stenosis of s pine M99.89 and Essential hypertension I10 [place] [address] [facility] [place] [id number] [address] [place] [address] May, Neuroforaminal stenosis of s pine M99.89 [place] [address] [facility] [place] [id number] [address] [place] [address] May, [place] [address] [id number] [address] [place] [address] May, Congestion of nasal sinus R0 9.81 [facility] [address] [id number] [address] [place] [address] May, [facility] [address] [id number] [address] [place] [address] Apr, Neuroforaminal stenosis of s pine M99.89 [place] [address] [id number] [address] [place] [address] Apr, Neuroforaminal stenosis of s pine M99.89 and Chronic pain due to trauma G89.21 [place] [address] [id number] [address] [place] [address] Mar, UTI (urinary tract infection ) N39.0 [place] [address] [id number] [address] [place] [address] Mar, Vertigo R42 [place] [address] [id number] [address] [place] [address] Mar, Neuroforaminal stenosis of s pine M99.89 [place] [address] [id number] [address] [place] [address] Feb, Extensor tendon disruption M 67.89 [place] [address] [id number] [address] [place] [address] Feb, Neuroforaminal stenosis of s pine M99.89 and High risk medication use Z79.899 [place] [address] [facility] [id number] [address] [place] [address] Jan, Hypokalemia E87.6 [place] [address] [facility] [id number] [address] [place] [address] Jan, Flank pain R10.9 and Acute r ight-sided low back pain without sciatica M54.5 [place] [address] [id number] [address] [place] [address] Jan, Hypokalemia E87.6 [place] [address] [address] Jan, [place] [address] [address] Jan, URI, acute J06.9 [place] [address] [address] Jan, Neuroforaminal stenosis of s jose M99.89 [place] [address] [address] 13 Dec, 2017 Lateral epicondylitis, right elbow M77.11 [place] [address] [address] 11 Dec, 2017 Allergic rhinitis due to monica rosalina, unspecified seasonality J30.1 and Allergic conjunctivitis of both eyes H10.13 [place] [address] [address] 10 Dec, 2017 Neuroforaminal stenosis of s pine M99.89 [place] [address] [address] Dec, Mixed hyperlipidemia E78.2 [place] [address] [address] 05 Dec, 2017 Abnormal glucose R73.09 ; Ab normal renal ultrasound R93.429 ; Dysuria R30.0 ; Cystitis without hematuria N30.90 ; Hypokalemia E87.6 ; Mixed hyperlipidemia E78.2 and Hematuria, unspecified type R31.9 [place] [address] [address] Nov, Hypokalemia E87.6 ; Mixed hy perlipidemia E78.2 and Hematuria, unspecified type R31.9 [place] [address] [address] Nov, [place] [address] [id number] [address] [place] [address] Nov, Hypokalemia E87.6 [place] [address] [id number] [address] [place] [address] Nov, [place] [address] [id number] [address] [place] [address] Nov, Abnormal renal ultrasound R9 3.429 [place] [address] [id number] [address] [place] [address] Nov, Abnormal renal ultrasound R9 3.429 [place] [address] [id number] [address] [place] [address] Nov, Hematuria, unspecified type R31.9 and Neuroforaminal stenosis of spine M99.89 [place] [address] [facility] [id number] [address] [place] [address] Nov, Dysuria R30.0 [place] [address] [id number] [address] [place] [address] Oct, Lateral epicondylitis, right elbow M77.11 [place] [address] [id number] [address] [place] [address] Oct, Neuroforaminal stenosis of s pine M99.89 ; Visit for TB skin test Z11.1 and Essential hypertension I10 [place] [address] [id number] [address] [place] [address] Oct, [place] [address] [id number] [address] [place] [address] Oct, Neuroforaminal stenosis of s pine M99.89 [place] [address] [facility] [id number] [address] [place] [address] Oct, Visit for TB skin test Z11.1 [place] [address] [facility] [place] [id number] [address] [place] [address] 05 Oct, 2017 Cystitis without hematuria N 30.90 [place] [address] [id number] [address] [place] [address] 28 Sep, 2017 Screening breast examination Z12.39 [place] [address] [id number] [address] [place] [address] 26 Sep, 2017 Dysuria R30.0 and Cystitis w ithout hematuria N30.90 [place] [address] [id number] [address] [place] [address] 14 Sep, 2017 Essential hypertension I10 a nd Neuroforaminal stenosis of spine M99.89 [place] [address] [id number] [address] [place] [address] 04 Sep, 2017 Abnormal glucose R73.09 [place] [address] [facility] [id number] [address] [place] [address] August, Lateral epicondylitis, right elbow M77.11 [place] [address] [facility] [id number] [address] [place] [address] August, Screen for STD (sexually tra nsmitted disease) Z11.3 [place] [address] [facility] [id number] [address] [place] [address] August, Neuroforaminal stenosis of s pine M99.89 ; Mixed hyperlipidemia E78.2 ; Elevated fasting glucose R73.01 ; Screening mammogram, encounter for Z12.31 and Encounter for well woman exam without gynecological exam Z00.00 [place] [address] [id number] [address] [place] [address] August, Neuroforaminal stenosis of s pine M99.89 [place] [address] [facility] [id number] [address] [place] [address] August, Essential hypertension I10 ; Hypokalemia E87.6 and Mixed hyperlipidemia E78.2 [place] [address] [id number] [address] [place] [address] Jul, [place] [address] [facility] [id number] [address] [place] [address] Jul, Neuroforaminal stenosis of s jose M99.89 [facility] [address] [id number] [address] [place] [address] Jul, Lateral epicondylitis, right elbow M77.11 [facility] [address] [id number] [address] [place] [address] Jul, [facility] [address] [facility] [id number] [address] [place] [address] Jun, High ankle sprain of right l ower extremity, initial encounter S93.431A [place] [address] [id number] [address] [place] [address] Jun, Essential hypertension I10 [place] [address] [id number] [address] [place] [address] Jun, [place] [address] [id number] [address] [place] [address] Jun, [place] [address] [id number] [address] [place] [address] Jun, Neuroforaminal stenosis of s jose M99.89 [place] [address] [id number] [address] [place] [address] Jun, Pain of right upper extremit y M79.601 and Essential hypertension I10 [place] [address] [id number] [address] [place] [address] Jun, [place] [address] [facility] [id number] [address] [place] [address] Jun, Dysuria R30.0 ; Acute cystit is with hematuria N30.01 and Screen for STD (sexually transmitted disease) Z11.3 [place] [address] [id number] [address] [place] [address] May, Chronic pain due to trauma G 89.21 [place] [address] [facility] [id number] [address] [place] [address] May, Essential hypertension I10 [place] [id number] [place] [address] May, Neuroforaminal stenosis of ayla garcia M99.89 [place] [address] [place] [id number] [address] [place] [address] Apr, Allergic reaction, initial e ncounter T78.40XA [place] [address] [address] Apr, Low back pain, unspecified b ack pain laterality, unspecified chronicity, with sciatica presence unspecified M54.5 ; Acute cystitis with hematuria N30.01 ; 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 ; Bilateral acute serous otitis media, recurrence not specified H65.03 ; Mixed hyperlipidemia E78.2 ; Essential hypertension I10 ; Immunization counseling Z71.89 and Encounter for immunization Z23 [place] [address] [address] Apr, Neck pain M54.2 [place] [address] [place] [id number] [address] [place] [address] Mar, Neuroforaminal stenosis of ayla garcia M99.89 [place] [address] [place] [id number] [address] [place] [address] Mar, Pharyngitis due to other org anism J02.8 [place] [address] [place] [id number] [address] [place] [address] Feb, Neuroforaminal stenosis of ayla garcia M99.89 [place] [address] [place] [id number] [address] [place] [address] 08 Feb, 2017 UTI (urinary tract infection ) N39.0 [place] [address] [place] [id number] [address] [place] [address] 07 Feb, 2017 Recent urinary tract infecti on Z87.440 ; Neuroforaminal stenosis of spine M99.89 ; Neck pain M54.2 ; Chronic pain due to trauma G89.21 and Recurrent UTI N39.0 [facility] [address] [id number] [address] [place] [address] Feb, [facility] [address] [id number] [address] [place] [address] Jan, Neuroforaminal stenosis of s pine M99.89 [facility] [address] [id number] [address] [place] [address] Dec, Neuroforaminal stenosis of s pine M99.89 [facility] [address] [id number] [address] [place] [address] 18 Dec, 2016 Acute seasonal allergic rhin itis due to pollen J30.1 [place] [address] [id number] [address] [place] [address] 08 Dec, 2016 [place] [address] [id number] [address] [place] [address] 08 Dec, 2016 Acute seasonal allergic rhin itis, unspecified trigger J30.2 ; Allergic conjunctivitis of both eyes H10.13 and Dysfunction of both eustachian tubes H69.83 [place] [address] [id number] [address] [place] [address] Dec, [place] [address] [id number] [address] [place] [address] Dec, Nevus D22.9 [facility] [address] [id number] [address] [place] [address] Nov, Chronic pain due to trauma G 89.21 and Neuroforaminal stenosis of spine M99.89 [facility] [address] [id number] [address] [place] [address] Nov, Neuroforaminal stenosis of s pine M99.89 ; Essential hypertension I10 ; Mixed hyperlipidemia E78.2 ; Hypokalemia E87.6 ; Neck pain M54.2 and Nevus D22.9 [facility] [address] [id number] [address] [place] [address] Oct, Neuroforaminal stenosis of s pine M99.89 [facility] [address] [id number] [address] [place] [address] Sep, Neuroforaminal stenosis of s pine M99.89 [facility] [address] [id number] [address] [place] [address] Sep, [facility] [address] [id number] [address] [place] [address] August, [facility] [address] [id number] [address] [place] [address] August, Neck pain M54.2 and Neurofor aminal stenosis of spine M99.89 [facility] [address] [id number] [address] [place] [id number] August, Routine gynecological examin ation Z01.419 and Screening breast examination Z12.39 [facility] [address] [id number] [address] [place] [id number] Jul, [facility] [address] [id number] [address] [place] [id number] Jul, [facility] [address] [id number] [address] [place] [id number] Jul, Neuroforaminal stenosis of s pine M99.89 [facility] [address] [id number] [address] [place] [id number] Jul, [facility] [address] [id number] [address] [place] [id number] Jul, Neuroforaminal stenosis of l umbar 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 [facility] [address] [id number] [address] [place] [id number] Jul, [facility] [address] [id number] [address] [place] [id number] Jul, [facility] [address] [id number] [address] [place] [id number] Jun, Neuroforaminal stenosis of ayla garcia M99.89 [place] [address] [address] [facility] [id number] [address] [place] [id number] Jun, Uterine leiomyoma, unspecifi ed location D25.9 and Allergic reaction caused by a drug, initial encounter T78.40XA [place] [address] [address] [facility] [id number] [address] [place] [id number] Jun, [place] [address] [address] [facility] [id number] [address] [place] [id number] May, UTI symptoms R39.9 and Pain of right sacroiliac joint M53.3 [place] [id number] [address] [place] [id number] May, Neuroforaminal stenosis of ayla garcia M99.89 [place] [address] [address] [place] [id number] [address] [place] [id number] May, [place] [address] [address] [place] [id number] [address] [place] [address] May, Acute mucoid otitis media of left ear H65.112 and Acute non- recurrent maxillary sinusitis J01.00 [place] [id number] [address] [place] [id number] May, Acute bacterial conjunctivit is of both eyes H10.33 ; Left arm pain M79.602 and Hypokalemia E87.6 [place] [address] [address] [place] [id number] [address] [place] [id number] Apr, [place] [address] [place] [id number] [address] [place] [id number] Apr, Neuroforaminal stenosis of ayla garcia M99.89 ; Neck pain M54.2 ; Chronic pain due to trauma G89.21 ; Mixed hyperlipidemia E78.2 ; Essential hypertension I10 and Hypokalemia E87.6 [place] [address] [address] [place] [id number] [address] [place] [address] Mar, Oral candidiasis B37.0 ; Nathaniel roforaminal stenosis of spine M99.89 ; Neck pain M54.2 and Chronic pain due to trauma G89.21 [facility] [address] [id number] [address] [place] [address] Feb, [facility] [address] [id number] [address] [place] [address] Feb, [facility] [address] [facility] [id number] [address] [place] [address] Feb, UTI (urinary tract infection ) N39.0 [facility] [address] [facility] [id number] [address] [place] [phone] Feb, Dysuria R30.0 [facility] [address] [facility] [id number] [address] [place] [address] Feb, Dysuria R30.0 [facility] [address] [facility] [id number] [address] [place] [address] Feb, Neuroforaminal stenosis of s pine M99.89 ; Neck pain M54.2 ; Essential hypertension I10 ; Chronic pain due to trauma G89.21 ; Dysuria R30.0 ; Abnormal MRI, shoulder R93.8 and Acute cystitis without hematuria N30.00 [facility] [address] [id number] [address] [place] [id number] Jan, [facility] [address] [facility] [id number] [address] [place] [address] Jan, [facility] [address] [facility] [id number] [address] [place] [phone] Jan, [facility] [address] [facility] [id number] [address] [place] [address] Jan, Abnormal MRI R93.8 [facility] [address] [facility] [id number] [address] [place] [phone] Dec, [facility] [address] [id number] [address] [place] [address] 15 Dec, 2015 Acute pain of left shoulder M25.512 [facility] [address] [id number] [address] [place] [address] 09 Dec, 2015 [facility] [address] [id number] [address] [place] [id number] 08 Dec, 2015 [facility] [address] [id number] [address] [place] [address] 07 Dec, 2015 Acute pain of left shoulder M25.512 [facility] [address] [id number] [address] [place] [address] 23 Nov, 2015 [facility] [address] [id number] [address] [place] [address] 16 Nov, 2015 Neuroforaminal stenosis of s pine M99.89 ; Neck pain M54.2 ; Abnormal mammogram R92.8 ; Essential hypertension I10 and Chronic pain due to trauma G89.21 [facility] [address] [id number] [address] [place] [address] Nov, [facility] [address] [id number] [address] [place] [address] Oct, Acute stress disorder F43.0 [facility] [address] [id number] [address] [place] [phone] Oct, [facility] [address] [id number] [address] [place] [address] Oct, [facility] [address] [id number] [address] [place] [address] Oct, [facility] [address] [id number] [address] [place] [address] Sep, [facility] [address] [id number] [address] [place] [address] August, [facility] [address] [id number] [address] [place] [address] Jul, Neuroforaminal stenosis of s pine M99.89 ; Neck pain M54.2 ; Abnormal mammogram R92.8 and Essential hypertension I10 [facility] [address] [id number] [address] [place] [address] Jul, [facility] [address] [id number] [address] [place] [address] Jul, [facility] [address] [id number] [address] [place] [id number] Jul, Abnormal mammogram R92.8 [facility] [address] [id number] [address] [place] [address] Jul, [facility] [address] [facility] [id number] [address] [place] [address] Jul, UTI (urinary tract infection ) N39.0 [facility] [address] [id number] [address] [place] [address] Jul, Dysuria R30.0 [facility] [address] [id number] [address] [place] [address] Jun, [facility] [address] [id number] [address] [place] [address] Jun, [facility] [address] [id number] [address] [place] [address] Jun, Hypokalemia E87.6 and Hematu martina R31.9 [facility] [address] [id number] [address] [place] [address] Jun, Hypokalemia E87.6 [facility] [address] [id number] [address] [place] [address] Jun, [facility] [address] [id number] [address] [place] [address] Jun, Hypokalemia E87.6 [facility] [address] [id number] [address] [place] [address] Jun, Hypokalemia E87.6 [facility] [address] [facility] [id number] [address] [place] [address] Jun, Neuroforaminal stenosis of s pine M99.89 ; Hypokalemia E87.6 ; Neck pain M54.2 ; Essential hypertension I10 ; Mixed hyperlipidemia E78.2 and Screening breast examination Z12.39 [facility] [address] [address] Jun, Dysuria R30.0 ; UTI (urinary tract infection) N39.0 and Hematuria R31.9 [facility] [address] [place] [id number] [place] [address] May, [facility] [address] [place] [id number] [place] [address] May, High risk sexual behavior Z7 2.51 ; Hypokalemia E87.6 ; Neuroforaminal stenosis of spine M99.89 ; Neck pain M54.2 ; Essential hypertension I10 ; Mixed hyperlipidemia E78.2 ; STD exposure Z20.2 and Concern about STD in female without diagnosis Z71.1 [facility] [address] [place] [id number] [address] [place] [address] 16 May, 2015 Neuroforaminal stenosis of s pine M99.89 ; Neck pain M54.2 ; Hypokalemia E87.6 ; Essential hypertension I10 and Mixed hyperlipidemia E78.2 [facility] [address] [place] [id number] [address] [place] [id number] May, [facility] [address] [facility] [id number] [address] [place] [address] 08 May, 2015 High risk sexual behavior Z7 2.51 ; STD exposure Z20.2 and Concern about STD in female without diagnosis Z71.1 [facility] [address] [place] [id number] [address] [place] [address] May, [facility] [address] [address] Apr, Neuroforaminal stenosis of s jose M99.89 ; Mixed hyperlipidemia E78.2 ; Essential hypertension I10 and Hypokalemia E87.6 [place] [address] [address] Mar, [facility] [address] [address] Mar, Hypokalemia E87.6 [place] [address] [address] Mar, Neuroforaminal stenosis of s jose M99.89 ; Mixed hyperlipidemia E78.2 ; Neck pain M54.2 ; Essential hypertension I10 ; Abnormal fasting glucose R73.09 ; Hypokalemia E87.6 and Constipation K59.00 [facility] [facility] [address] [address] Feb, Neuroforaminal stenosis of ayla garcia M99.89 ; Mixed hyperlipidemia E78.2 ; Neck pain M54.2 ; Essential hypertension I10 ; Abnormal fasting glucose R73.09 ; Hypokalemia E87.6 and Constipation K59.00 [place] [address] [address] Feb, Elevated fasting blood sugar R73.01 [facility] [address] [address] Feb, Elevated fasting blood sugar R73.01 [place] [address] [address] Feb, Hair loss L65.9 [place] [address] [address] Feb, Sinusitis J32.9 ; Essential hypertension I10 and Hair loss L65.9 [facility] [address] [address] Jan, [facility] [address] [id number] [address] [place] [address] Jan, Essential hypertension I10 ; Neuroforaminal stenosis of spine M99.89 ; Neck pain M54.2 ; Mixed hyperlipidemia E78.2 and Anxiety F41.9 [facility] [address] [id number] [address] [place] [address] Jan, [facility] [address] [id number] [address] [place] [address] Jan, Mixed hyperlipidemia E78.2 ; Essential (primary) hypertension I10 ; Strain of muscle, fascia and tendon at neck level, subsequent encounter S16.1XXD and Tension-type headache, unspecified, not intractable G44.209 [facility] [address] [id number] [address] [place] [address] Dec, Lumbar back pain 724.2 and N euroforaminal stenosis of spine 724.00 [facility] [address] [id number] [address] [place] [address] Nov, [facility] [address] [id number] [address] [place] [address] Nov, Lumbar back pain 724.2 and N euroforaminal stenosis of spine 724.00 [facility] [address] [id number] [address] [place] [address] Nov, Edema 782.3 ; Lumbar back pa in 724.2 ; Essential hypertension, benign 401.1 ; Hyperlipemia 272.4 ; Neuroforaminal stenosis of spine 724.00 and Post-concussion headache 339.20 [facility] [address] [id number] [address] [place] [address] Nov, [place] [address] [id number] [address] [place] [address] Nov, [facility] [address] [id number] [address] [place] [address] Oct, Essential hypertension, sheridan gn 401.1 [place] [address] [id number] [address] [place] [address] Oct, Edema 782.3 ; Lumbar back pa in 724.2 ; Essential hypertension, benign 401.1 ; Hyperlipemia 272.4 ; Neuroforaminal stenosis of spine 724.00 and Post-concussion headache 339.20 [place] [address] [id number] [address] [place] [address] Oct, [place] [address] [id number] [address] [place] [address] Oct, Edema 782.3 [place] [address] [id number] [address] [place] [address] Oct, Lumbar back pain 724.2 [place] [address] [id number] [address] [place] [address] Oct, Cervicalgia 723.1 ; Lumbar b ack pain 724.2 and High risk medication use V58.69 [place] [address] [id number] [address] [place] [address] Sep, [place] [address] [id number] [address] [place] [address] Sep, Lumbar strain 847.2 [place] [address] [id number] [address] [place] [id number] August, Edema 782.3 and Eustachian t ube dysfunction 381.81 [place] [address] [id number] [address] [place] [address] August, [place] [facility] [address] [id number] [address] [place] [address] August, Eustachian tube dysfunction 381.81 [place] [address] [id number] [address] [place] [address] Jul, Otalgia 388.70 and Otitis me jonathon 382.9 [place] [address] [id number] [address] [place] [id number] 28 Jul, 2014 [facility] [address] [id number] [address] [place] [address], [place] [address] 28 Jul, 2014 [facility] [address] [id number] [address] [place] [address], [place] [address] 28 Jul, 2014 [facility] [address] [id number] [address] [place] [address], [place] [address] 14 Jul, 2014 [facility] [address] [id number] [address] [place] [address], [place] [address] 13 Jul, 2014 [facility] [address] [id number] [address] [place] [address], [place] [address] 27 Jun, 2014 [facility] [address] [id number] [address] [place] [address], [place] [address] 27 Jun, 2014 [facility] [address] [id number] [address] [place] [address], [place] [address] 16 Jun, 2014 [facility] [address] [id number] [address] [place] [address], [place] [address] 26 May, 2014 [facility] [address] [id number] [address] [place] [address], [place] [address] May, [facility] [address] [id number] [address] [place] [address], [place] [address] 23 May, 2014 [facility] [address] [id number] [address] [place] [address], [place] [address] 17 May, 2014 [facility] [address] [id number] [address] [place] [address], [place] [address] 17 May, 2014 [facility] [address] [id number] [address] [place] [address], [place] [address] May, 2014 [facility] [address] [id number] [address] [place] [address], [place] [address] 09 May, 2014 [facility] [address] [id number] [address] [place] [id number] 05 May, 2014 [facility] [address] [id number] [address] [place] [address], [place] [address] May, [facility] [address] [id number] [address] [place] [address], [place] [address] May, [facility] [address] [id number] [address] [place] [address], [place] [address] Apr, [facility] [address] [id number] [address] [place] [address], [place] [address] Apr, [facility] [address] [id number] [address] [place] [address], [place] [address] Apr, [facility] [address] [id number] [address] [place] [address], [place] [address] Apr, [facility] [address] [id number] [address] [place] [address], [place] [address] Apr, [facility] [address] [id number] [address] [place] [address], [place] [address] Apr, [facility] [address] [id number] [address] [place] [address], [place] [address] Apr, [facility] [address] [id number] [address] [place] [address], [place] [address] Apr, [facility] [address] [id number] [address] [place] [address], [place] [address] Apr, [facility] [address] [id number] [address] [place] [address], [place] [address] Apr, [facility] [address] [id number] [address] [place] [address], [place] [address] Apr, [facility] [address] [id number] [address] [place] [address], [place] [address] Apr, [facility] [address] [id number] [address] [place] [address], [place] [address] Apr, [facility] [address] [id number] [address] [place] [address] Apr, [facility] [address] [id number] [address] [place] [address], [place] [address] Apr, [facility] [address] [id number] [address] [place] [address], [place] [address] Mar, [facility] [address] [id number] [address] [place] [address], [place] [address] Mar, [facility] [address] [id number] [address] [place] [address], [place] [address] Mar, [facility] [address] [id number] [address] [place] [address], [place] [address] Mar, [facility] [address] [id number] [address] [place] [address], [place] [address] Feb, [facility] [address] [id number] [address] [place] [address], [place] [address] Feb, [facility] [address] [id number] [address] [place] [address], [place] [address] Feb, [facility] [address] [id number] [address] [place] [address] Feb, [facility] [address] [id number] [address] [place] [address] Jan, [facility] [address] [id number] [address] [place] [address] Jan, [facility] [address] [id number] [address] [place] [address] Jan, [facility] [address] [id number] [address] [place] [address] Jan, [facility] [address] [id number] [address] [place] [address] Jan, [facility] [address] [id number] [address] [place] [address], [place] [address] Jan, [facility] [address] [id number] [address] [place] [address], [place] [address] Jan, [facility] [address] [id number] [address] [place] [address], [place] [address] Jan, [facility] [address] [id number] [address] [place] [address], [place] [address] Dec, [facility] [address] [id number] [address] [place] [address], [place] [address] Dec, [facility] [address] [id number] [address] [place] [address], [place] [address] Dec, [facility] [address] [id number] [address] [place] [address], [place] [address] Dec, [facility] [address] [id number] [address] [place] [address], [place] [address] Oct, [facility] [address] [id number] [address] [place] [address], [place] [address] Oct, [facility] [address] [id number] [address] [place] [address], [place] [address] Oct, [facility] [address] [id number] [address] [place] [address], [place] [address] Oct, [facility] [address] [id number] [address] [place] [address], [place] [address] Oct, [facility] [address] [id number] [address] [place] [address], [place] [address] Oct, [facility] [address] [id number] [address] [place] [address], [place] [address] Oct, [facility] [address] [id number] [address] [place] [address], [place] [address] Oct, [facility] [address] [id number] [address] [place] [address], [place] [address] Sep, [facility] [address] [id number] [address] [place] [address], [place] [address] Sep, [facility] [address] [id number] [facility] [place] [address] Sep, [facility] [address] [id number] [facility] [place] [address] Sep, [facility] [address] [id number] [address] [place] [address], [place] [address] Sep, [facility] [address] [id number] [address] [place] [address], [place] [address] Sep, [facility] [address] [id number] [address] [place] [address], [place] [address] Sep, [facility] [address] [id number] [address] [place] [address], [place] [address] Sep, [facility] [address] [id number] [address] [place] [address], [place] [address] Sep, [facility] [address] [id number] [address] [place] [address], [place] [address] Sep, [facility] [address] [id number] [address] [place] [address], [place] [address] August, [facility] [address] [id number] [address] [place] [address], [place] [address] August, [facility] [address] [id number] [address] [place] [address], [place] [address] August, [facility] [address] [id number] [address] [place] [address], [place] [address] August, [facility] [address] [id number] [address] [place] [address], [place] [address] August, [facility] [address] [id number] [address] [place] [address], [place] [address] August, [facility] [address] [id number] [address] [place] [address], [place] [address] August, [facility] [address] [id number] [address] [place] [address], [place] [address] August, [facility] [address] [id number] [address] [place] [address], [place] [address] August, [facility] [address] [id number] [address] [place] [address], [place] [address] August, [facility] [address] [id number] [address] [place] [address], [place] [address] August, [facility] [address] [id number] [address] [place] [address], [place] [address] August, [facility] [address] [id number] [address] [place] [address], [place] [address] Jul, [facility] [address] [id number] [address] [place] [address], [place] [address] Jul, [facility] [address] [id number] [address] [place] [address], [place] [address] Jul, [facility] [address] [id number] [address] [place] [address], [place] [address] Jul, [facility] [address] [id number] [address] [place] [address], [place] [address] Jul, [facility] [address] [id number] [address] [place] [address], [place] [address] Jul, [facility] [address] [id number] [address] [place] [address], [place] [address] Jun, [facility] [address] [id number] [address] [place] [address], [place] [address] Jun, [facility] [address] [id number] [address] [place] [address], [place] [address] May, [facility] [address] [id number] [address] [place] [address], [place] [address] May, [facility] [address] [id number] [address] [place] [address], [place] [address] Apr, [facility] [address] [id number] [address] [place] [address], [place] [address] Apr, [facility] [address] [id number] [address] [place] [address], [place] [address] Apr, [facility] [address] [id number] [address] [place] [address], [place] [address] Apr, [facility] [address] [id number] [address] [place] [address], [place] [address] Apr, [facility] [address] [id number] [address] [place] [address], [place] [address] Apr, [facility] [address] [id number] [address] [place] [address], [place] [address] Apr, [facility] [address] [id number] [address] [place] [address], [place] [address] Apr, [facility] [address] [id number] [address] [place] [address], [place] [address] Apr, [facility] [address] [id number] [address] [place] [address], [place] [address] Apr, [facility] [address] [id number] [address] [place] [address], [place] [address] Apr, [facility] [address] [id number] [address] [place] [address], [place] [address] Apr, [facility] [address] [id number] [address] [place] [address], [place] [address] Apr, [facility] [address] [id number] [address] [place] [address], [place] [address] Mar, [facility] [facility] [address] [id number] [address] [place] [address], [place] [address] Mar, [facility] [address] [id number] [address] [place] [address], [place] [address] Mar, [facility] [address] [id number] [address] [place] [id number] Mar, [facility] [address] [id number] [address] [place] [address], [place] [address] Feb, [facility] [address] [id number] [address] [place] [address], [place] [address] Feb, [facility] [address] [id number] [address] [place] [id number] Feb, [facility] [address] [id number] [address] [place] [id number] Feb, [facility] [address] [id number] [address] [place] [address], [place] [address] Jan, [facility] [address] [id number] [address] [place] [id number] 14 Jan, 2013 [facility] [address] [id number] [address] [place] [address] Jan, [facility] [address] [id number] [address] [place] [phone] Jan, [facility] [address] [id number] [address] [place] [address] Jan, [facility] [address] [id number] [address] [place] [phone] Jan, [facility] [address] [id number] [address] [place] [id number] Jan, [facility] [address] [id number] [address] [place] [phone] Jan, [facility] [address] [id number] [address] [place] [address], [place] [address] Jan, [facility] [address] [id number] [address] [place] [id number] 26 Dec, 2012 [facility] [address] [id number] [address] [place] [address], [place] [address] 16 Dec, 2012 [facility] [address] [id number] [address] [place] [address], [place] [address] 16 Dec, 2012 [facility] [address] [id number] [address] [place] [address], [place] [address] Dec, [facility] [address] [id number] [address] [place] [address], [place] [address] Nov, [facility] [address] [id number] [address] [place] [address], [place] [address] Nov, [facility] [address] [id number] [address] [place] [address], [place] [address] Nov, [facility] [address] [id number] [address] [place] [address], [place] [address] Nov, [facility] [address] [id number] [address] [place] [address], [place] [address] Oct, [facility] [address] [id number] [address] [place] [address], [place] [address] Sep, [facility] [address] [id number] [address] [place] [address], [place] [address] August, [facility] [address] [id number] [address] [place] [address], [place] [address] August, [facility] [address] [id number] [address] [place] [address], [place] [address] August, [facility] [address] [id number] [address] [place] [address], [place] [address] August, [facility] [address] [id number] [address] [place] [address], [place] [address] August, [facility] [address] [id number] [address] [place] [address], [place] [address] August, [facility] [address] [id number] [address] [place] [address], [place] [address] August, [facility] [address] [id number] [address] [place] [address], [place] [address] August, [facility] [address] [id number] [address] [place] [address], [place] [address] August, [facility] [address] [id number] [address] [place] [address], [place] [address] August, [facility] [address] [id number] [address] [place] [address], [place] [address] August, [facility] [address] [id number] [address] [place] [address], [place] [address] August, [facility] [address] [id number] [address] [place] [address], [place] [address] Jul, [facility] [address] [id number] [address] [place] [address], [place] [address] Jul, [facility] [address] [id number] [address] [place] [address], [place] [address] Jul, [facility] [address] [id number] [address] [place] [address], [place] [address] Jul, [facility] [address] [id number] [address] [place] [address], [place] [address] Jul, [facility] [address] [id number] [address] [place] [address], [place] [address] Jul, [facility] [address] [id number] [address] [place] [address], [place] [address] Jul, [facility] [address] [id number] [address] [place] [address], [place] [address] Jul, [facility] [address] [id number] [address] [place] [address], [place] [address] Jul, [facility] [address] [id number] [address] [place] [address], [place] [address] Jul, [facility] [address] [id number] [address] [place] [address], [place] [address] Jul, [facility] [address] [id number] [address] [place] [address], [place] [address] Jun, [facility] [address] [id number] [address] [place] [address], [place] [address] Jun, [facility] [address] [id number] [address] [place] [address], [place] [address] Jun, [facility] [address] [id number] [address] [place] [address], [place] [address] Jun, [facility] [address] [id number] [address] [place] [address], [place] [address] May, [facility] [address] [id number] [address] [place] [address], [place] [address] May, [facility] [address] [id number] [address] [place] [address], [place] [address] 05 May, 2012 [facility] [address] [id number] [address] [place] [address], [place] [address] May, [facility] [address] [id number] [address] [place] [address], [place] [address] May, [facility] [address] [id number] [address] [place] [address], [place] [address] May, [facility] [address] [id number] [address] [place] [address], [place] [address] Apr, [facility] [address] [id number] [address] [place] [address], [place] [address] Apr, [facility] [address] [id number] [address] [place] [address], [place] [address] 30 Apr, 2012 [facility] [address] [id number] [address] [place] [address], [place] [address] Apr, [facility] [address] [id number] [address] [place] [address], [place] [address] Mar, [facility] [address] [id number] [address] [place] [address], [place] [address] Mar, [facility] [address] [id number] [address] [place] [address], [place] [address] 14 Mar, 2012 [facility] [address] [id number] [address] [place] [address], [place] [address] 14 Mar, 2012 [facility] [address] [id number] [address] [place] [address], [place] [address] Mar, [facility] [address] [id number] [address] [place] [address], [place] [address] Mar, [facility] [address] [id number] [address] [place] [address], [place] [address] Mar, [facility] [address] [id number] [address] [place] [address], [place] [address] Feb, [facility] [address] [id number] [address] [place] [address], [place] [address] Feb, [facility] [address] [id number] [address] [place] [address], [place] [address] Feb, [facility] [address] [id number] [address] [place] [address], [place] [address] Feb, [facility] [address] [id number] [address] [place] [address] Jan, [facility] [address] [id number] [address] [place] [address] Jan, [facility] [address] [id number] [address] [place] [address] Jan, [facility] [address] [id number] [address] [place] [address], [place] [address] Jan, [facility] [address] [id number] [address] [place] [address] Jan, [facility] [address] [id number] [address] [place] [address] Jan, [facility] [address] [id number] [address] [place] [address] Dec, [facility] [address] [id number] [address] [place] [address], [place] [address] Dec, [facility] [address] [id number] [address] [place] [address], [place] [address] Nov, [facility] [address] [id number] [address] [place] [address], [place] [address] Sep, [facility] [address] [id number] [address] [place] [address], [place] [address] August, [facility] [address] [id number] [address] [place] [address], [place] [address] August, [facility] [address] [id number] [address] [place] [address], [place] [address] August, [facility] [address] [id number] [address] [place] [address], [place] [address] August, [facility] [address] [id number] [address] [place] [address], [place] [address] August, [facility] [address] [id number] [address] [place] [address], [place] [address] Jun, [facility] [address] [id number] [address] [place] [address], [place] [address] Jun, [facility] [address] [id number] [address] [place] [address], [place] [address] Apr, [facility] [address] [id number] [address] [place] [address], [place] [address] Apr, [facility] [address] [id number] [address] [place] [address], [place] [address] Mar, [facility] [address] [id number] [address] [place] [address], [place] [address] Feb, [facility] [address] [id number] [address] [place] [address], [place] [address] Feb, [facility] [address] [id number] [address] [place] [address] 14 Feb, 2011 [facility] [address] [id number] [address] [place] [id number] 17 Jan, 2011 [facility] [address] [id number] [address] [place] [address] 15 Jan, 2011 [facility] [address] [id number] [address] [place] [id number] Jan, [facility] [address] [id number] [address] [place] [address] Jan, [facility] [address] [id number] [address] [place] [address] May, [facility] [address] [id number] [address] [place] [address] Mar, [facility] [address] [id number] [address] [place] [address] Oct, [facility] [address] [id number] [address] [place] [address] Sep, [facility] [address] [id number] [address] [place] [address] Mar, [facility] [address] [id number] [address] [place] [address] Jan, [facility] [address] [id number] [address] [place] [address] Jan, [facility] [address] [id number] [address] [place] [address] May, IMMUNIZATIONS No Known Immunizations SOCIAL HISTORY [...]
--- OUTSIDE RECORDS SUMMARY | 2019-11-23 05:43 | XMS REPORT ---
Author Author Liana Coe Doctor Organization [facility] Address Unknown Phone Unavailable Care Team Providers Care Account Resolution Analyst Name Role Phone Migration, Doctor Unavailable Unavailable PROBLEMS Type Condition ICD9-CM Code WAN03-QA Code Onset Dates Condition S tatus SNOMED Code Problem Hematuria, unspecified type R31.9 Ac tive 49672014 Problem Abnormal glucose R73.09 Active 102 113236 Problem Anxiety F41.9 Active 67040691 Problem Neck pain M54.2 Active 46514170 Problem Essential hypertension I10 Active 42382385 Problem Rhinosinusitis J32.9 Active 02642 4004 Problem Neuroforaminal stenosis of spine M99.89 Active 905833282330 Problem Other chronic pain G89.29 Active 8 1499555 Problem Abnormal renal ultrasound R93.429 Acti ve [id number] Problem Mixed hyperlipidemia E78.2 Active 80968248 Problem Hypokalemia E87.6 Active 46358636 Problem Chronic pain due to trauma G89.21 Act juanis 550412226 Problem Seasonal allergies J30.2 Active 4 [id number] ALLERGIES No Information ENCOUNTERS Encounter Location Date Diagnosis [facility] [address] [facility] [id number] [address] [phone] 07 Jan, 2020 [facility] [address] [facility] [id number] [address] [id number] 07 Oct, 2019 Neuroforaminal stenosis of s pine M99.89 ; Screening breast examination Z12.39 and Other chronic pain G89.29 [facility] [address] [facility] [id number] [address] [phone] Sep, [facility] [address] [facility] [id number] [address] [address] Sep, Neuroforaminal stenosis of s pine M99.89 [facility] [address] [facility] [id number] [address] [id number] Sep, Encounter for laboratory luisa hidalgo for COVID-19 virus V73.89 [facility] [address] [id number] [address] [phone] August, Neuroforaminal stenosis of s jose M99.89 [facility] [address] [id number] [address] [phone] August, Acute bacterial conjunctivit is of right eye H10.31 [facility] [address] [id number] [address] [phone] August, Low back pain M54.5 ; Other chronic pain G89.29 and Dysuria R30.0 [place] [address] [id number] [address] [address] August, [place] [address] [facility] [id number] [address] [address] Jul, Neuroforaminal stenosis of s jose M99.89 [place] [address] [id number] [address] [phone] Jul, Allergic conjunctivitis of b oth eyes H10.13 [place] [address] [id number] [address] [address] Jun, Hypokalemia E87.6 [place] [address] [id number] [address] [phone] Jun, [place] [address] [id number] [address] [address] Jun, Neuroforaminal stenosis of s jose M99.89 [facility] [address] [id number] [address] [phone] 19 Jun, 2019 Lateral epicondylitis, left elbow M77.12 and Medial epicondylitis, left elbow M77.02 [place] [id number] [id number] [address] [address] 16 Jun, 2019 Foraminal stenosis of lumbar region M48.061 ; Segmental dysfunction of thoracic region M99.02 ; Segmental dysfunction of lumbar region M99.03 and Segmental dysfunction of sacral region M99.04 [facility] [address] [id number] [address] [phone] 28 May, 2019 Left elbow pain M25.522 [facility] [address] [id number] [address] [phone] May, [facility] [address] [id number] [address] [phone] May, Left elbow pain M25.522 [facility] [address] [id number] [address] [phone] May, Neuroforaminal stenosis of s pine M99.89 [place] [id number] [id number] [address] [address] May, Rhinosinusitis J32.9 ; Left elbow pain M25.522 and Neck pain M54.2 [place] [address] [id number] [address] [phone] 14 May, 2019 Lateral epicondylitis of lef t elbow M77.12 [place] [address] [id number] [address] [address] Apr, Neuroforaminal stenosis of s pine M99.89 [place] [address] [facility] [id number] [address] [address] Apr, Essential hypertension I10 a nd Mixed hyperlipidemia E78.2 [facility] [address] [id number] [address] [address] Mar, Neuroforaminal stenosis of s pine M99.89 [facility] [address] [id number] [address] [phone] Mar, Epicondylitis, lateral, left M77.12 [facility] [address] [id number] [address] [address] Mar, [place] [address] [facility] [id number] [address] [address] Mar, Neuroforaminal stenosis of s pine M99.89 [facility] [address] [facility] [id number] [address] [phone] Feb, Neuroforaminal stenosis of s pine M99.89 ; Essential hypertension I10 ; Mixed hyperlipidemia E78.2 ; Encounter for immunization Z23 and Seasonal allergies J30.2 [facility] [address] [facility] [id number] [address] [address] Jan, Neuroforaminal stenosis of s pine M99.89 [place] [address] [facility] [id number] [address] [address] Dec, Neuroforaminal stenosis of s pine M99.89 [place] [address] [place] [id number] [address] [address] Dec, Neuroforaminal stenosis of s pine M99.89 [facility] [address] [facility] [id number] [address] [address] Nov, [place] [address] [place] [id number] [address] [address] Nov, Neuroforaminal stenosis of s pine M99.89 [facility] [address] [place] [id number] [address] [phone] Nov, Acute non-recurrent maxillar y sinusitis J01.00 [facility] [address] [place] [id number] [address] [address] Oct, Hypokalemia E87.6 [facility] [address] [facility] [id number] [address] [address] Oct, Wasp sting, undetermined int ent, initial encounter T63.464A and Cellulitis of left lower extremity L03.116 [facility] [address] [place] [id number] [address] [address] Oct, Neuroforaminal stenosis of s pine M99.89 [place] [address] [id number] [address] [address] Sep, [place] [address] [id number] [address] [address] 24 Sep, 2018 [place] [address] [facility] [id number] [address] [phone] 18 Sep, 2018 Routine screening for STI (s exually transmitted infection) Z11.3 [place] [address] [id number] [address] [id number] 14 Sep, 2018 Routine screening for STI (s exually transmitted infection) Z11.3 ; Well woman exam with routine gynecological exam Z01.419 and Breast cancer screening Z12.39 [place] [address] [facility] [id number] [address] [phone] 10 Sep, 2018 Neuroforaminal stenosis of s pine M99.89 [place] [address] [facility] [id number] [address] [address] August, Neuroforaminal stenosis of s pine M99.89 [place] [address] [facility] [id number] [address] [address] August, Neuroforaminal stenosis of s pine M99.89 ; Chronic pain due to trauma G89.21 and Mixed hyperlipidemia E78.2 [place] [address] [facility] [id number] [address] [phone] Jul, Viral upper respiratory illn ess J06.9 and Acute non-recurrent frontal sinusitis J01.10 [place] [address] [facility] [id number] [address] [phone] Jul, Congestion of nasal sinus R0 9.81 [place] [address] [facility] [id number] [address] [address] Jul, Neuroforaminal stenosis of s pine M99.89 and Essential hypertension I10 [place] [address] [facility] [id number] [address] [address] May, Neuroforaminal stenosis of s pine M99.89 [facility] [address] [id number] [address] [address] May, [facility] [address] [id number] [address] [address] May, Congestion of nasal sinus R0 9.81 [facility] [address] [id number] [address] [address] May, [facility] [address] [id number] [address] [address] Apr, Neuroforaminal stenosis of s pine M99.89 [facility] [address] [id number] [address] [address] Apr, Neuroforaminal stenosis of s pine M99.89 and Chronic pain due to trauma G89.21 [facility] [address] [id number] [address] [address] Mar, UTI (urinary tract infection ) N39.0 [facility] [address] [id number] [address] [address] Mar, Vertigo R42 [facility] [address] [facility] [id number] [address] [phone] Mar, Neuroforaminal stenosis of s pine M99.89 [facility] [address] [id number] [address] [address] Feb, Extensor tendon disruption M 67.89 [facility] [address] [id number] [address] [address] Feb, Neuroforaminal stenosis of s pine M99.89 and High risk medication use Z79.899 [facility] [address] [id number] [address] [phone] Jan, Hypokalemia E87.6 [facility] [address] [facility] [id number] [address] [address] Jan, Flank pain R10.9 and Acute r ight-sided low back pain without sciatica M54.5 [place] [address] [address] Jan, Hypokalemia E87.6 [place] [address] [address] Jan, [place] [address] [address] Jan, URI, acute J06.9 [place] [address] [phone] Jan, Neuroforaminal stenosis of s jose M99.89 [place] [address] [address] 13 Dec, 2017 Lateral epicondylitis, right elbow M77.11 [place] [address] [id number] 11 Dec, 2017 Allergic rhinitis due to monica rosalina, unspecified seasonality J30.1 and Allergic conjunctivitis of both eyes H10.13 [place] [address] [address] 10 Dec, 2017 Neuroforaminal stenosis of s pine M99.89 [place] [address] [address] Dec, Mixed hyperlipidemia E78.2 [place] [address] [address] 05 Dec, 2017 Abnormal glucose R73.09 ; Ab normal renal ultrasound R93.429 ; Dysuria R30.0 ; Cystitis without hematuria N30.90 ; Hypokalemia E87.6 ; Mixed hyperlipidemia E78.2 and Hematuria, unspecified type R31.9 [place] [address] [address] Nov, Hypokalemia E87.6 ; Mixed hy perlipidemia E78.2 and Hematuria, unspecified type R31.9 [facility] [address] [id number] [address] [phone] Nov, [facility] [address] [id number] [address] [address] Nov, Hypokalemia E87.6 [facility] [address] [id number] [address] [address] Nov, [facility] [address] [id number] [address] [address] Nov, Abnormal renal ultrasound R9 3.429 [place] [address] [id number] [address] [phone] Nov, Abnormal renal ultrasound R9 3.429 [place] [address] [id number] [address] [phone] Nov, Hematuria, unspecified type R31.9 and Neuroforaminal stenosis of spine M99.89 [place] [address] [id number] [address] [address] Nov, Dysuria R30.0 [place] [address] [id number] [address] [phone] Oct, Lateral epicondylitis, right elbow M77.11 [place] [address] [id number] [address] [address] Oct, Neuroforaminal stenosis of s pine M99.89 ; Visit for TB skin test Z11.1 and Essential hypertension I10 [place] [address] [id number] [address] [address] Oct, [place] [address] [id number] [address] [address] Oct, Neuroforaminal stenosis of s pine M99.89 [place] [address] [facility] [id number] [address] [phone] 10 Oct, 2017 Visit for TB skin test Z11.1 [place] [address] [id number] [address] [phone] 05 Oct, 2017 Cystitis without hematuria N 30.90 [place] [address] [id number] [address] [place] [address] 28 Sep, 2017 Screening breast examination Z12.39 [place] [address] [id number] [address] [phone] 26 Sep, 2017 Dysuria R30.0 and Cystitis w ithout hematuria N30.90 [place] [address] [id number] [address] [address] 14 Sep, 2017 Essential hypertension I10 a nd Neuroforaminal stenosis of spine M99.89 [place] [address] [id number] [address] [phone] 04 Sep, 2017 Abnormal glucose R73.09 [place] [address] [facility] [id number] [address] [address] August, Lateral epicondylitis, right elbow M77.11 [place] [address] [facility] [id number] [address] [phone] August, Screen for STD (sexually tra nsmitted disease) Z11.3 [place] [address] [facility] [id number] [address] [address] August, Neuroforaminal stenosis of s pine M99.89 ; Mixed hyperlipidemia E78.2 ; Elevated fasting glucose R73.01 ; Screening mammogram, encounter for Z12.31 and Encounter for well woman exam without gynecological exam Z00.00 [place] [address] [id number] [address] [address] August, Neuroforaminal stenosis of s pine M99.89 [place] [address] [facility] [id number] [address] [phone] August, Essential hypertension I10 ; Hypokalemia E87.6 and Mixed hyperlipidemia E78.2 [facility] [address] [id number] [address] [address] Jul, [facility] [address] [id number] [address] [place] [phone] Jul, Neuroforaminal stenosis of s jose M99.89 [facility] [address] [id number] [address] [address] Jul, Lateral epicondylitis, right elbow M77.11 [facility] [address] [id number] [address] [address] Jul, [facility] [address] [id number] [address] [address] Jun, High ankle sprain of right l ower extremity, initial encounter S93.431A [place] [address] [id number] [address] [address] Jun, Essential hypertension I10 [facility] [address] [id number] [address] [address] Jun, [facility] [address] [id number] [address] [phone] Jun, [facility] [address] [id number] [address] [address] Jun, Neuroforaminal stenosis of s pine M99.89 [facility] [address] [id number] [address] [address] Jun, Pain of right upper extremit y M79.601 and Essential hypertension I10 [facility] [address] [id number] [address] [address] Jun, [place] [address] [id number] [address] [address] Jun, Dysuria R30.0 ; Acute cystit is with hematuria N30.01 and Screen for STD (sexually transmitted disease) Z11.3 [place] [address] [address] May, Chronic pain due to trauma G 89.21 [place] [address] [address] May, Essential hypertension I10 [place] [address] [address] May, Neuroforaminal stenosis of s pine M99.89 [place] [address] [address] Apr, Allergic reaction, initial e ncounter T78.40XA [place] [address] [address] Apr, Low back pain, unspecified b ack pain laterality, unspecified chronicity, with sciatica presence unspecified M54.5 ; Acute cystitis with hematuria N30.01 ; Neuroforaminal stenosis of spine M99.89 ; Bilateral acute serous otitis media, recurrence not specified H65.03 ; Mixed hyperlipidemia E78.2 ; Essential hypertension I10 ; Immunization counseling Z71.89 and Encounter for immunization Z23 [place] [address] [address] Apr, Neck pain M54.2 [place] [address] [address] Mar, Neuroforaminal stenosis of s pine M99.89 [place] [address] [place] [id number] [address] [address] Mar, Pharyngitis due to other org anism J02.8 [place] [address] [address] Feb, Neuroforaminal stenosis of s pine M99.89 [place] [address] [address] 08 Feb, 2017 UTI (urinary tract infection ) N39.0 [place] [address] [place] [id number] [address] [address] 07 Feb, 2017 Recent urinary tract infecti on Z87.440 ; Neuroforaminal stenosis of spine M99.89 ; Neck pain M54.2 ; Chronic pain due to trauma G89.21 and Recurrent UTI N39.0 [facility] [address] [id number] [address] [place] [address] Feb, [facility] [address] [id number] [address] [address] Jan, Neuroforaminal stenosis of s pine M99.89 [facility] [address] [id number] [address] [address] Dec, Neuroforaminal stenosis of s pine M99.89 [facility] [address] [id number] [address] [address] 18 Dec, 2016 Acute seasonal allergic rhin itis due to pollen J30.1 [facility] [address] [id number] [address] [phone] 08 Dec, 2016 [facility] [address] [id number] [address] [address] 08 Dec, 2016 Acute seasonal allergic rhin itis, unspecified trigger J30.2 ; Allergic conjunctivitis of both eyes H10.13 and Dysfunction of both eustachian tubes H69.83 [facility] [address] [id number] [address] [place] [address] Dec, [facility] [address] [id number] [address] [address] Dec, Nevus D22.9 [facility] [address] [id number] [address] [address] Nov, Chronic pain due to trauma G 89.21 and Neuroforaminal stenosis of spine M99.89 [facility] [address] [id number] [address] [phone] Nov, Neuroforaminal stenosis of s pine M99.89 ; Essential hypertension I10 ; Mixed hyperlipidemia E78.2 ; Hypokalemia E87.6 ; Neck pain M54.2 and Nevus D22.9 [facility] [address] [id number] [address] [phone] Oct, Neuroforaminal stenosis of s pine M99.89 [facility] [address] [id number] [address] [phone] Sep, Neuroforaminal stenosis of s pine M99.89 [facility] [address] [id number] [address] [id number] Sep, [facility] [address] [id number] [address] [address] August, [facility] [address] [id number] [address] [phone] August, Neck pain M54.2 and Neurofor aminal stenosis of spine M99.89 [facility] [address] [id number] [address] [address] August, Routine gynecological examin ation Z01.419 and Screening breast examination Z12.39 [facility] [address] [id number] [address] [phone] Jul, [facility] [address] [id number] [address] [phone] Jul, [facility] [address] [id number] [address] [place] [id number] Jul, Neuroforaminal stenosis of s pine M99.89 [facility] [address] [id number] [address] [place] [phone] Jul, [facility] [address] [id number] [address] [id number] Jul, Neuroforaminal stenosis of l umbar 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 [facility] [address] [id number] [address] [id number] Jul, [facility] [address] [facility] [id number] [address] [phone] Jul, [facility] [address] [facility] [id number] [address] [id number] Jun, Neuroforaminal stenosis of s jose M99.89 [facility] [address] [facility] [id number] [address] [place] [phone] Jun, Uterine leiomyoma, unspecifi ed location D25.9 and Allergic reaction caused by a drug, initial encounter T78.40XA [facility] [address] [facility] [id number] [address] [id number] Jun, [facility] [address] [facility] [id number] [address] [id number] May, UTI symptoms R39.9 and Pain of right sacroiliac joint M53.3 [place] [address] [place] [id number] [address] [phone] May, Neuroforaminal stenosis of s pine M99.89 [place] [address] [facility] [id number] [address] [place] [phone] May, [facility] [address] [facility] [id number] [address] [address] May, Acute mucoid otitis media of left ear H65.112 and Acute non- recurrent maxillary sinusitis J01.00 [place] [address] [place] [id number] [address] [address] May, Acute bacterial conjunctivit is of both eyes H10.33 ; Left arm pain M79.602 and Hypokalemia E87.6 [place] [address] [facility] [id number] [address] [address] Apr, [facility] [address] [facility] [id number] [address] [address] Apr, Neuroforaminal stenosis of s pine M99.89 ; Neck pain M54.2 ; Chronic pain due to trauma G89.21 ; Mixed hyperlipidemia E78.2 ; Essential hypertension I10 and Hypokalemia E87.6 [facility] [address] [facility] [id number] [address] [address] Mar, Oral candidiasis B37.0 ; Nathaniel roforaminal stenosis of spine M99.89 ; Neck pain M54.2 and Chronic pain due to trauma G89.21 [facility] [address] [id number] [address] [address] Feb, [facility] [address] [id number] [address] [address] Feb, [facility] [address] [facility] [id number] [address] [address] Feb, UTI (urinary tract infection ) N39.0 [facility] [address] [place] [id number] [address] [address] Feb, Dysuria R30.0 [facility] [address] [facility] [id number] [address] [address] Feb, Dysuria R30.0 [facility] [address] [facility] [id number] [address] [address] Feb, Neuroforaminal stenosis of s pine M99.89 ; Neck pain M54.2 ; Essential hypertension I10 ; Chronic pain due to trauma G89.21 ; Dysuria R30.0 ; Abnormal MRI, shoulder R93.8 and Acute cystitis without hematuria N30.00 [facility] [address] [facility] [id number] [address] [address] Jan, [facility] [address] [facility] [id number] [address] [address] Jan, [facility] [address] [facility] [id number] [address] [address] Jan, [facility] [address] [facility] [id number] [address] [address] Jan, Abnormal MRI R93.8 [facility] [address] [id number] [address] [address] 29 Dec, 2015 [facility] [address] [id number] [address] [id number] 15 Dec, 2015 Acute pain of left shoulder M25.512 [facility] [address] [id number] [address] [id number] 09 Dec, 2015 [facility] [address] [id number] [address] [id number] 08 Dec, 2015 [facility] [address] [id number] [address] [address] 07 Dec, 2015 Acute pain of left shoulder M25.512 [facility] [address] [id number] [address] [address] Nov, [facility] [address] [id number] [address] [address] Nov, Neuroforaminal stenosis of s pine M99.89 ; Neck pain M54.2 ; Abnormal mammogram R92.8 ; Essential hypertension I10 and Chronic pain due to trauma G89.21 [facility] [address] [id number] [address] [address] Nov, [facility] [address] [id number] [address] [place] [address] Oct, Acute stress disorder F43.0 [facility] [address] [id number] [address] [address] Oct, [facility] [address] [id number] [address] [address] Oct, [facility] [address] [id number] [address] [address] Oct, [facility] [address] [id number] [address] [address] Sep, [facility] [address] [id number] [address] [address] August, [facility] [address] [id number] [address] [address] Jul, Neuroforaminal stenosis of s pine M99.89 ; Neck pain M54.2 ; Abnormal mammogram R92.8 and Essential hypertension I10 [facility] [address] [id number] [address] [address] Jul, [facility] [address] [id number] [address] [address] Jul, [facility] [address] [id number] [address] [address] Jul, Abnormal mammogram R92.8 [facility] [address] [id number] [address] [address] Jul, [facility] [address] [facility] [id number] [address] [address] Jul, UTI (urinary tract infection ) N39.0 [facility] [address] [id number] [address] [address] Jul, Dysuria R30.0 [facility] [address] [id number] [address] [address] Jun, [facility] [address] [id number] [address] [address] Jun, [facility] [address] [id number] [address] [address] Jun, Hypokalemia E87.6 and Hematu martina R31.9 [facility] [address] [id number] [address] [address] Jun, Hypokalemia E87.6 [facility] [address] [id number] [address] [address] Jun, [facility] [address] [address] Jun, Hypokalemia E87.6 [place] [address] [address] Jun, Hypokalemia E87.6 [place] [address] [address] Jun, Neuroforaminal stenosis of s pine M99.89 ; Hypokalemia E87.6 ; Neck pain M54.2 ; Essential hypertension I10 ; Mixed hyperlipidemia E78.2 and Screening breast examination Z12.39 [place] [address] [address] Jun, Dysuria R30.0 ; UTI (urinary tract infection) N39.0 and Hematuria R31.[address] [address] May, [facility] [address] [address] May, High risk sexual behavior Z7 2.51 ; Hypokalemia E87.6 ; Neuroforaminal stenosis of spine M99.89 ; Neck pain M54.2 ; Essential hypertension I10 ; Mixed hyperlipidemia E78.2 ; STD exposure Z20.2 and Concern about STD in female without diagnosis Z71.1 [place] [address] [id number] 16 May, 2015 Neuroforaminal stenosis of s pine M99.89 ; Neck pain M54.2 ; Hypokalemia E87.6 ; Essential hypertension I10 and Mixed hyperlipidemia E78.2 [place] [address] [address] May, [facility] [address] [place] [id number] [address] [address] 08 May, 2015 High risk sexual behavior Z7 2.51 ; STD exposure Z20.2 and Concern about STD in female without diagnosis Z71.1 [place] [address] [address] May, [place] [address] [address] Apr, Neuroforaminal stenosis of s pine M99.89 ; Mixed hyperlipidemia E78.2 ; Essential hypertension I10 and Hypokalemia E87.6 [place] [address] [address] Mar, [place] [address] [address] Mar, Hypokalemia E87.6 [place] [address] [address] Mar, Neuroforaminal stenosis of s pine M99.89 ; Mixed hyperlipidemia E78.2 ; Neck pain M54.2 ; Essential hypertension I10 ; Abnormal fasting glucose R73.09 ; Hypokalemia E87.6 and Constipation K59.00 [place] [address] [address] Feb, Neuroforaminal stenosis of s pine M99.89 ; Mixed hyperlipidemia E78.2 ; Neck pain M54.2 ; Essential hypertension I10 ; Abnormal fasting glucose R73.09 ; Hypokalemia E87.6 and Constipation K59.00 [place] [address] [address] Feb, Elevated fasting blood sugar R73.01 [place] [address] [address] Feb, Elevated fasting blood sugar R73.01 [place] [address] [address] Feb, Hair loss L65.9 [place] [address] [address] Feb, Sinusitis J32.9 ; Essential hypertension I10 and Hair loss L65.9 [facility] [address] [id number] [address] [address] Jan, [facility] [address] [id number] [address] [address] Jan, Essential hypertension I10 ; Neuroforaminal stenosis of spine M99.89 ; Neck pain M54.2 ; Mixed hyperlipidemia E78.2 and Anxiety F41.9 [place] [address] [id number] [address] [place] [address] Jan, [place] [address] [facility] [id number] [place] [address] Jan, Mixed hyperlipidemia E78.2 ; Essential (primary) hypertension I10 ; Strain of muscle, fascia and tendon at neck level, subsequent encounter S16.1XXD and Tension-type headache, unspecified, not intractable G44.209 [place] [address] [id number] [address] [address] Dec, Lumbar back pain 724.2 and N euroforaminal stenosis of spine 724.00 [place] [address] [id number] [address] [address] Nov, [place] [address] [id number] [address] [address] Nov, Lumbar back pain 724.2 and N euroforaminal stenosis of spine 724.00 [place] [address] [id number] [address] [address] Nov, Edema 782.3 ; Lumbar back pa in 724.2 ; Essential hypertension, benign 401.1 ; Hyperlipemia 272.4 ; Neuroforaminal stenosis of spine 724.00 and Post-concussion headache 339.20 [place] [address] [id number] [address] [place] [address] Nov, [place] [address] [id number] [address] [address] Nov, [facility] [address] [id number] [address] [address] Oct, Essential hypertension, sheridan gn 401.1 [facility] [address] [facility] [id number] [address] [address] Oct, Edema 782.3 ; Lumbar back pa in 724.2 ; Essential hypertension, benign 401.1 ; Hyperlipemia 272.4 ; Neuroforaminal stenosis of spine 724.00 and Post-concussion headache 339.20 [facility] [address] [id number] [address] [address] Oct, [place] [address] [facility] [id number] [address] [address] Oct, Edema 782.3 [place] [address] [facility] [id number] [address] [address] Oct, Lumbar back pain 724.2 [place] [address] [id number] [address] [address] Oct, Cervicalgia 723.1 ; Lumbar b ack pain 724.2 and High risk medication use V58.69 [place] [address] [facility] [id number] [address] [address] Sep, [place] [address] [facility] [id number] [address] [address] Sep, Lumbar strain 847.2 [place] [address] [facility] [id number] [address] [address] August, Edema 782.3 and Eustachian t ube dysfunction 381.81 [place] [address] [facility] [id number] [address] [address] August, [place] [address] [facility] [id number] [address] [address] August, Eustachian tube dysfunction 381.81 [facility] [address] [id number] [address] [place] [address], [place] [address] 29 Jul, 2014 Otalgia 388.70 and Otitis me jonathon 382.9 [facility] [address] [id number] [address] [place] [address], [place] [address] Jul, [facility] [address] [id number] [address] [place] [address], [place] [address] Jul, [facility] [address] [id number] [address] [place] [address], [place] [address] Jul, [facility] [address] [id number] [address] [place] [address], [place] [address] 14 Jul, 2014 [facility] [address] [id number] [address] [place] [address], [place] [address] Jul, [facility] [address] [id number] [address] [place] [address], [place] [address] Jun, [facility] [address] [id number] [address] [place] [address], [place] [address] Jun, [facility] [address] [id number] [address] [place] [address], [place] [address] 16 Jun, 2014 [facility] [address] [id number] [address] [place] [address], [place] [address] May, [facility] [address] [id number] [address] [place] [address], [place] [address] May, [facility] [address] [id number] [address] [place] [address], [place] [address] 23 May, 2014 [facility] [address] [id number] [address] [place] [address], [place] [address] May, [facility] [address] [id number] [address] [place] [address], [place] [address] May, [facility] [address] [id number] [address] [place] [address], [place] [address] May, [facility] [address] [id number] [address] [place] [address], [place] [address] May, [facility] [address] [id number] [address] [place] [address], [place] [address] May, [facility] [address] [id number] [address] [place] [address], [place] [address] May, [facility] [address] [id number] [address] [place] [address], [place] [address] May, [facility] [address] [id number] [address] [place] [address], [place] [address] Apr, [facility] [address] [id number] [address] [place] [address], [place] [address] Apr, [facility] [address] [id number] [address] [place] [address], [place] [address] Apr, [facility] [address] [id number] [address] [place] [address], [place] [address] Apr, [facility] [address] [id number] [address] [place] [address], [place] [address] Apr, [facility] [address] [id number] [address] [place] [address], [place] [address] Apr, [facility] [address] [id number] [address] [place] [address], [place] [address] Apr, [facility] [address] [id number] [address] [place] [address], [place] [address] Apr, [facility] [address] [id number] [address] [place] [address], [place] [address] Apr, [facility] [address] [id number] [address] [place] [address], [place] [address] Apr, [facility] [address] [id number] [address] [place] [address], [place] [address] Apr, [facility] [address] [id number] [address] [place] [address], [place] [address] Apr, [facility] [address] [id number] [address] [place] [address], [place] [address] Apr, [facility] [address] [id number] [address] [place] [address], [place] [address] Apr, [facility] [address] [id number] [address] [place] [address], [place] [address] Apr, [facility] [address] [id number] [address] [place] [address], [place] [address] Mar, [facility] [address] [id number] [address] [place] [address], [place] [address] Mar, [facility] [address] [id number] [address] [place] [address], [place] [address] Mar, [facility] [address] [id number] [address] [place] [address], [place] [address] Mar, [facility] [address] [id number] [address] [place] [address], [place] [address] Feb, [facility] [address] [id number] [address] [place] [address], [place] [address] Feb, [facility] [address] [id number] [address] [place] [address], [place] [address] Feb, [facility] [address] [id number] [address] [place] [address], [place] [address] Feb, [facility] [address] [id number] [address] [address] Jan, [facility] [address] [id number] [address] [place] [address], [place] [address] Jan, [facility] [address] [id number] [address] [place] [address], [place] [address] Jan, [facility] [address] [id number] [address] [place] [address], [place] [address] Jan, [facility] [address] [id number] [address] [place] [address], [place] [address] Jan, [facility] [address] [id number] [address] [place] [address], [place] [address] Jan, [facility] [address] [id number] [address] [place] [address], [place] [address] Jan, [facility] [address] [id number] [address] [place] [address], [place] [address] Jan, [facility] [address] [id number] [address] [place] [address], [place] [address] Dec, [facility] [address] [id number] [address] [place] [address], [place] [address] Dec, [facility] [address] [id number] [address] [place] [address], [place] [address] Dec, [facility] [address] [id number] [address] [place] [address], [place] [address] Dec, [facility] [address] [id number] [address] [place] [address], [place] [address] Oct, [facility] [address] [id number] [address] [place] [address], [place] [address] Oct, [facility] [address] [id number] [address] [place] [address], [place] [address] Oct, [facility] [address] [id number] [address] [place] [address], [place] [address] Oct, 2013 [facility] [address] [id number] [address] [place] [address], [place] [address] Oct, [facility] [address] [id number] [address] [place] [address], [place] [address] Oct, 2013 [facility] [address] [id number] [address] [place] [address], [place] [address] Oct, 2013 [facility] [address] [id number] [address] [place] [address], [place] [address] Oct, [facility] [address] [id number] [address] [place] [address], [place] [address] Sep, [facility] [address] [id number] [address] [place] [address], [place] [address] Sep, [facility] [address] [id number] [address] [place] [address], [place] [address] Sep, [facility] [address] [id number] [address] [place] [address], [place] [address] Sep, [facility] [address] [id number] [address] [place] [address], [place] [address] Sep, [facility] [address] [id number] [address] [place] [address], [place] [address] Sep, [facility] [address] [id number] [address] [place] [address], [place] [address] Sep, [facility] [address] [id number] [address] [place] [address], [place] [address] Sep, [facility] [address] [id number] [address] [place] [address], [place] [address] Sep, [facility] [address] [id number] [address] [place] [address], [place] [address] Sep, [facility] [address] [id number] [address] [place] [address], [place] [address] August, [facility] [address] [id number] [address] [place] [address], [place] [address] August, [facility] [address] [id number] [address] [place] [address], [place] [address] August, [facility] [address] [id number] [address] [place] [address], [place] [address] August, [facility] [address] [id number] [address] [place] [address], [place] [address] August, [facility] [address] [id number] [address] [place] [address], [place] [address] August, [facility] [address] [id number] [address] [place] [address], [place] [address] August, [facility] [address] [id number] [address] [place] [address], [place] [address] August, [facility] [address] [id number] [address] [place] [address], [place] [address] August, [facility] [address] [id number] [address] [place] [address], [place] [address] August, [facility] [address] [id number] [address] [place] [address], [place] [address] August, [facility] [address] [id number] [address] [place] [address], [place] [address] August, [facility] [address] [id number] [address] [place] [address], [place] [address] Jul, [facility] [address] [id number] [address] [place] [address], [place] [address] Jul, [facility] [address] [id number] [address] [place] [address], [place] [address] Jul, [facility] [address] [id number] [address] [place] [address], [place] [address] Jul, [facility] [address] [id number] [address] [place] [address], [place] [address] Jul, [facility] [address] [id number] [address] [place] [address], [place] [address] Jul, [facility] [address] [id number] [address] [place] [address], [place] [address] Jun, [facility] [address] [id number] [address] [place] [address], [place] [address] Jun, [facility] [address] [id number] [address] [place] [address], [place] [address] May, [facility] [address] [id number] [address] [place] [address], [place] [address] 10 May, 2013 [facility] [address] [id number] [address] [place] [address], [place] [address] Apr, [facility] [address] [id number] [address] [place] [address], [place] [address] Apr, [facility] [address] [id number] [address] [place] [address], [place] [address] Apr, [facility] [address] [id number] [address] [place] [address], [place] [address] Apr, [facility] [address] [id number] [address] [place] [address], [place] [address] Apr, [facility] [address] [id number] [address] [place] [address], [place] [address] Apr, [facility] [address] [id number] [address] [place] [address], [place] [address] Apr, [facility] [address] [id number] [address] [place] [address], [place] [address] Apr, [facility] [address] [id number] [address] [place] [address], [place] [address] Apr, [facility] [address] [id number] [address] [place] [address], [place] [address] Apr, [facility] [address] [id number] [address] [place] [address], [place] [address] Apr, [facility] [address] [id number] [address] [place] [address], [place] [address] Apr, [facility] [address] [id number] [address] [place] [address], [place] [address] Apr, [facility] [address] [id number] [address] [place] [address], [place] [address] Mar, [facility] [address] [id number] [address] [place] [address] [address] Mar, [facility] [address] [id number] [address] [place] [address], [place] [address] Mar, [facility] [address] [id number] [address] [place] [address], [place] [address] Mar, [facility] [address] [id number] [address] [place] [address], [place] [address] Feb, [facility] [address] [id number] [address] [place] [address], [place] [address] Feb, [facility] [address] [id number] [address] [place] [address], [place] [address] Feb, [facility] [address] [id number] [address] [place] [address], [place] [address] Feb, [facility] [address] [id number] [address] [place] [address], [place] [address] Jan, [facility] [address] [id number] [address] [address] Jan, [facility] [address] [id number] [address] [address] Jan, [facility] [address] [id number] [address] [address] Jan, [facility] [address] [id number] [address] [address] Jan, [facility] [address] [id number] [address] [address] Jan, [facility] [address] [id number] [address] [address] Jan, [facility] [address] [id number] [address] [address] Jan, [facility] [address] [id number] [address] [address] Jan, [facility] [address] [id number] [address] [place] [address], [place] [address] 26 Dec, 2012 [facility] [address] [id number] [address] [place] [address], [place] [address] 16 Dec, 2012 [facility] [address] [id number] [address] [place] [address], [place] [address] 16 Dec, 2012 [facility] [address] [id number] [address] [place] [address], [place] [address] 13 Dec, 2012 [facility] [address] [id number] [address] [place] [address], [place] [address] 17 Nov, 2012 [facility] [address] [id number] [address] [place] [address], [place] [address] 17 Nov, 2012 [facility] [address] [id number] [address] [place] [address], [place] [address] Nov, [facility] [address] [id number] [address] [place] [address], [place] [address] 05 Nov, 2012 [facility] [address] [id number] [address] [place] [address], [place] [address] Oct, [facility] [address] [id number] [address] [place] [address], [place] [address] Sep, [facility] [address] [id number] [address] [place] [address], [place] [address] August, [facility] [address] [id number] [address] [place] [address], [place] [address] August, [facility] [address] [id number] [address] [place] [address], [place] [address] August, [facility] [address] [id number] [address] [place] [address], [place] [address] August, [facility] [address] [id number] [address] [place] [address], [place] [address] August, [facility] [address] [id number] [address] [place] [address], [place] [address] August, [facility] [address] [id number] [address] [place] [address], [place] [address] August, [facility] [address] [id number] [address] [place] [address], [place] [address] August, [facility] [address] [id number] [address] [place] [address], [place] [address] August, [facility] [address] [id number] [address] [place] [address], [place] [address] August, [facility] [address] [id number] [address] [place] [address], [place] [address] August, [facility] [address] [id number] [address] [place] [address], [place] [address] August, [facility] [address] [id number] [address] [place] [address], [place] [address] Jul, [facility] [address] [id number] [address] [place] [address], [place] [address] Jul, [facility] [address] [id number] [address] [place] [address], [place] [address] Jul, [facility] [address] [id number] [address] [place] [address], [place] [address] 15 Jul, 2012 [facility] [address] [id number] [address] [place] [address], [place] [address] Jul, [facility] [address] [id number] [address] [place] [address], [place] [address] Jul, [facility] [address] [id number] [address] [place] [address], [place] [address] Jul, [facility] [address] [id number] [address] [place] [address], [place] [address] Jul, [facility] [address] [id number] [address] [place] [address], [place] [address] Jul, [facility] [address] [id number] [address] [place] [address], [place] [address] Jul, [facility] [address] [id number] [address] [place] [address], [place] [address] Jul, [facility] [address] [id number] [address] [place] [address], [place] [address] Jun, [facility] [address] [id number] [address] [place] [address], [place] [address] Jun, [facility] [address] [id number] [address] [place] [address], [place] [address] Jun, [facility] [address] [id number] [address] [place] [address], [place] [address] Jun, [facility] [address] [id number] [address] [place] [address], [place] [address] May, [facility] [address] [id number] [address] [place] [address], [place] [address] May, [facility] [address] [id number] [address] [place] [address], [place] [address] May, [facility] [address] [id number] [address] [place] [address], [place] [address] May, [facility] [address] [id number] [address] [place] [address], [place] [address] May, [facility] [address] [id number] [address] [place] [address], [place] [address] May, [facility] [address] [id number] [address] [place] [address], [place] [address] Apr, [facility] [address] [id number] [address] [place] [address], [place] [address] Apr, [facility] [address] [id number] [address] [place] [address], [place] [address] Apr, [facility] [address] [id number] [address] [place] [address], [place] [address] Apr, [facility] [address] [id number] [address] [place] [address], [place] [address] 15 Mar, 2012 [facility] [address] [id number] [address] [place] [address], [place] [address] 14 Mar, 2012 [facility] [address] [id number] [address] [place] [address], [place] [address] 14 Mar, 2012 [facility] [address] [id number] [address] [place] [address], [place] [address] 14 Mar, 2012 [facility] [address] [id number] [address] [place] [address], [place] [address] 14 Mar, 2012 [facility] [address] [id number] [address] [place] [address], [place] [address] 06 Mar, 2012 [facility] [address] [id number] [address] [place] [address], [place] [address] Mar, [facility] [address] [id number] [address] [place] [address], [place] [address] Feb, [facility] [address] [id number] [address] [place] [address], [place] [address] Feb, [facility] [address] [id number] [address] [place] [address], [place] [address] Feb, [facility] [address] [id number] [address] [place] [address], [place] [address] Feb, [facility] [address] [id number] [address] [place] [address], [place] [address] Jan, [facility] [address] [id number] [address] [place] [address], [place] [address] 11 Jan, 2012 [facility] [address] [id number] [address] [place] [address], [place] [address] 10 Jan, 2012 [facility] [address] [id number] [address] [place] [address], [place] [address] 10 Jan, 2012 [facility] [address] [id number] [address] [place] [address], [place] [address] Jan, [facility] [address] [id number] [address] [place] [address], [place] [address] Jan, [facility] [address] [id number] [address] [place] [address], [place] [address] Dec, [facility] [address] [id number] [address] [place] [address], [place] [address] Dec, [facility] [address] [id number] [address] [place] [address], [place] [address] Nov, [facility] [address] [id number] [address] [place] [address], [place] [address] Sep, [facility] [address] [id number] [address] [place] [address], [place] [address] August, [facility] [address] [id number] [address] [place] [address], [place] [address] August, [facility] [address] [id number] [address] [place] [address], [place] [address] August, [facility] [address] [id number] [address] [place] [address], [place] [address] August, [facility] [address] [id number] [address] [place] [address], [place] [address] August, [facility] [address] [id number] [address] [place] [address], [place] [address] Jun, [facility] [address] [id number] [address] [place] [address], [place] [address] Jun, [facility] [address] [id number] [address] [place] [address], [place] [address] Apr, [facility] [address] [id number] [address] [place] [address], [place] [address] Apr, [facility] [address] [id number] [address] [place] [address], [place] [address] Mar, [facility] [address] [id number] [address] [place] [address] 22 Feb, 2011 [facility] [address] [id number] [address] [place] [address] 14 Feb, 2011 [facility] [address] [id number] [address] [place] [address] 14 Feb, 2011 [facility] [address] [id number] [address] [place] [address] 17 Jan, 2011 [facility] [address] [id number] [address] [place] [address] 15 Jan, 2011 [facility] [address] [id number] [address] [address] 15 Jan, 2011 [facility] [address] [id number] [address] [address] Jan, [facility] [address] [id number] [address] [place] [address] 15 May, 2010 [facility] [address] [id number] [address] [address] Mar, [facility] [address] [id number] [address] [address] Oct, [facility] [address] [id number] [address] [address] Sep, [facility] [address] [id number] [address] [address] Mar, [facility] [address] [id number] [address] [address] Jan, [facility] [address] [id number] [address] [address] Jan, [facility] [address] [id number] [address] [address] May, IMMUNIZATIONS No Known Immunizations SOCIAL HISTORY Never Assessed REASON FOR VISIT PLAN OF CARE VITAL SIGNS Height 62 in 2013-01-17 Weight 176 lbs 2013-01-17 Temperature 98 degrees Fahrenheit 2013-01-17 Heart Rate 80 bpm 2013-01-17 Respiratory Rate 14 2013-01-17 Blood pressure systolic 128 mmHg 2013-01-17 Blood pressure diastolic 70 mmHg 2013-01-17 MEDICATIONS Unknown Medications RESULTS No Results PROCEDURES Procedure Date Ordered Result Body Site LIPID PANEL Jan 17, 2013 COMPREHEN METABOLIC PANEL Jan 17, 2013 URINALYSIS, AUTO, W/O SCOPE Jan 17, 2013 VENIPUNCT, ROUTINE* Jan 17, 2013 INSTRUCTIONS MEDICATIONS ADMINISTERED No Known Medications MEDICAL (GENERAL) HISTORY Type Description Date Medical History hypertension Medical History Colposcopy with loop electro de excision of the cervix was performed 06/2012, mild squamous atypia (no definite dyplasia). Performed at [facility] Dr. Joy. Medical History Acute suppurative otitis [...]
--- OUTSIDE RECORDS SUMMARY | 2019-11-23 05:44 | XMS REPORT ---
Author Author Liana Fuchs Organization [facility] Address [address] [place] [address] Care Team Providers Care Stave Jointer Name Role Phone PACHECO Fuchs Unavailable PROBLEMS Type Condition ICD9-CM Code MSN48-DB Code Onset Dates Condition S tatus SNOMED Code Problem Hematuria, unspecified type R31.9 Ac tive 03246387 Problem Abnormal glucose R73.09 Active 102 670856 Problem Anxiety F41.9 Active 44071445 Problem Neck pain M54.2 Active 79607735 Problem Essential hypertension I10 Active 72533248 Problem Rhinosinusitis J32.9 Active 56780 4004 Problem Neuroforaminal stenosis of spine M99.89 Active 673305663031 Problem Other chronic pain G89.29 Active 8 8831028 Problem Abnormal renal ultrasound R93.429 Acti ve [id number] Problem Mixed hyperlipidemia E78.2 Active 14401865 Problem Hypokalemia E87.6 Active 44051749 Problem Chronic pain due to trauma G89.21 Act juanis 149900389 Problem Seasonal allergies J30.2 Active 4 [id number] ALLERGIES No Information ENCOUNTERS Encounter Location Date Diagnosis [facility] [address] [facility] [id number] [address] [place] [id number] Oct, [facility] [address] [facility] [id number] [address] [place] [id number] Sep, [facility] [address] [facility] [id number] [address] [place] [id number] Sep, Neuroforaminal stenosis of s pine M99.89 [facility] [address] [facility] [id number] [address] [place] [id number] Sep, Encounter for laboratory luisa ting for COVID-19 virus V73.89 [facility] [address] [id number] [address] [place] [id number] August, Neuroforaminal stenosis of s pine M99.89 [facility] [address] [id number] [address] [place] [id number] August, Acute bacterial conjunctivit is of right eye H10.31 [facility] [address] [id number] [address] [place] [id number] August, Low back pain M54.5 ; Other chronic pain G89.29 and Dysuria R30.0 [facility] [address] [id number] [address] [place] [id number] August, [place] [address] [id number] [address] [place] [id number] Jul, Neuroforaminal stenosis of s jose M99.89 [place] [address] [id number] [address] [place] [id number] Jul, Allergic conjunctivitis of b oth eyes H10.13 [facility] [address] [id number] [address] [place] [id number] Jun, Hypokalemia E87.6 [facility] [address] [id number] [address] [place] [id number] Jun, [place] [address] [id number] [address] [place] [id number] Jun, Neuroforaminal stenosis of s pine M99.89 [facility] [address] [id number] [address] [place] [id number] Jun, Lateral epicondylitis, left elbow M77.12 and Medial epicondylitis, left elbow M77.02 [place] [address] [id number] [address] [place] [id number] 16 Jun, 2019 Foraminal stenosis of lumbar region M48.061 ; Segmental dysfunction of thoracic region M99.02 ; Segmental dysfunction of lumbar region M99.03 and Segmental dysfunction of sacral region M99.04 [facility] [address] [id number] [address] [place] [id number] May, Left elbow pain M25.522 [facility] [address] [id number] [address] [place] [id number] May, [facility] [address] [id number] [address] [place] [id number] May, Left elbow pain M25.522 [facility] [address] [id number] [address] [place] [id number] May, Neuroforaminal stenosis of s pine M99.89 [facility] [address] [id number] [address] [place] [id number] May, Rhinosinusitis J32.9 ; Left elbow pain M25.522 and Neck pain M54.2 [facility] [address] [id number] [address] [place] [id number] 14 May, 2019 Lateral epicondylitis of lef t elbow M77.12 [facility] [address] [id number] [address] [place] [id number] Apr, Neuroforaminal stenosis of s pine M99.89 [facility] [address] [id number] [address] [place] [id number] Apr, Essential hypertension I10 a nd Mixed hyperlipidemia E78.2 [facility] [address] [id number] [address] [place] [id number] Mar, Neuroforaminal stenosis of s pine M99.89 [facility] [address] [id number] [address] [place] [id number] Mar, Epicondylitis, lateral, left M77.12 [facility] [address] [id number] [address] [place] [id number] Mar, [facility] [address] [id number] [address] [place] [id number] Mar, Neuroforaminal stenosis of s jose M99.89 [facility] [address] [facility] [id number] [address] [place] [id number] Feb, Neuroforaminal stenosis of s jose M99.89 ; Essential hypertension I10 ; Mixed hyperlipidemia E78.2 ; Encounter for immunization Z23 and Seasonal allergies J30.2 [facility] [address] [id number] [address] [place] [id number] Jan, Neuroforaminal stenosis of s pine M99.89 [facility] [address] [id number] [address] [place] [id number] Dec, Neuroforaminal stenosis of s pine M99.89 [facility] [address] [facility] [id number] [address] [place] [id number] Dec, Neuroforaminal stenosis of s jose M99.89 [facility] [address] [facility] [id number] [address] [place] [id number] Nov, [facility] [address] [facility] [id number] [address] [place] [id number] Nov, Neuroforaminal stenosis of s jose M99.89 [facility] [address] [facility] [id number] [address] [place] [id number] Nov, Acute non-recurrent maxillar y sinusitis J01.00 [facility] [address] [facility] [id number] [address] [place] [id number] Oct, Hypokalemia E87.6 [facility] [address] [facility] [id number] [address] [place] [id number] Oct, Wasp sting, undetermined int ent, initial encounter T63.464A and Cellulitis of left lower extremity L03.116 [facility] [address] [facility] [id number] [address] [place] [id number] Oct, Neuroforaminal stenosis of s jose M99.89 [facility] [address] [facility] [id number] [address] [place] [id number] Sep, [facility] [address] [id number] [address] [place] [id number] Sep, [place] [address] [id number] [address] [place] [id number] 18 Sep, 2018 Routine screening for STI (s exually transmitted infection) Z11.3 [place] [address] [id number] [address] [place] [id number] 14 Sep, 2018 Routine screening for STI (s exually transmitted infection) Z11.3 ; Well woman exam with routine gynecological exam Z01.419 and Breast cancer screening Z12.39 [place] [address] [id number] [address] [place] [id number] Sep, Neuroforaminal stenosis of s pine M99.89 [place] [address] [facility] [id number] [address] [place] [id number] August, Neuroforaminal stenosis of s pine M99.89 [place] [address] [id number] [address] [place] [id number] August, Neuroforaminal stenosis of s pine M99.89 ; Chronic pain due to trauma G89.21 and Mixed hyperlipidemia E78.2 [place] [address] [facility] [id number] [address] [place] [id number] 16 Jul, 2018 Viral upper respiratory illn ess J06.9 and Acute non-recurrent frontal sinusitis J01.10 [place] [address] [id number] [address] [place] [id number] Jul, Congestion of nasal sinus R0 9.81 [place] [address] [facility] [id number] [address] [place] [id number] Jul, Neuroforaminal stenosis of s pine M99.89 and Essential hypertension I10 [place] [address] [facility] [id number] [address] [place] [id number] May, Neuroforaminal stenosis of s pine M99.89 [place] [address] [id number] [address] [place] [id number] May, [facility] [address] [id number] [address] [place] [id number] May, Congestion of nasal sinus R0 9.81 [facility] [address] [id number] [address] [place] [id number] May, [facility] [address] [id number] [address] [place] [id number] Apr, Neuroforaminal stenosis of s pine M99.89 [facility] [address] [id number] [address] [place] [id number] Apr, Neuroforaminal stenosis of s pine M99.89 and Chronic pain due to trauma G89.21 [facility] [address] [id number] [address] [place] [id number] Mar, UTI (urinary tract infection ) N39.0 [facility] [address] [id number] [address] [place] [id number] Mar, Vertigo R42 [facility] [address] [id number] [address] [place] [id number] Mar, Neuroforaminal stenosis of s pine M99.89 [facility] [address] [facility] [id number] [address] [place] [id number] Feb, Extensor tendon disruption M 67.89 [facility] [address] [id number] [address] [place] [id number] Feb, Neuroforaminal stenosis of s pine M99.89 and High risk medication use Z79.899 [facility] [address] [facility] [id number] [address] [place] [id number] Jan, Hypokalemia E87.6 [facility] [address] [facility] [id number] [address] [place] [id number] Jan, Flank pain R10.9 and Acute r ight-sided low back pain without sciatica M54.5 [place] [address] [id number] Jan, Hypokalemia E87.6 [place] [address] [address] Jan, [place] [address] [address] Jan, URI, acute J06.9 [place] [address] [id number] 05 Jan, 2018 Neuroforaminal stenosis of s pine M99.89 [place] [address] [id number] 13 Dec, 2017 Lateral epicondylitis, right elbow M77.11 [place] [address] [id number] 11 Dec, 2017 Allergic rhinitis due to monica rosalina, unspecified seasonality J30.1 and Allergic conjunctivitis of both eyes H10.13 [place] [address] [id number] 10 Dec, 2017 Neuroforaminal stenosis of s jose M99.89 [place] [address] [id number] 06 Dec, 2017 Mixed hyperlipidemia E78.2 [place] [address] [address] 05 Dec, 2017 Abnormal glucose R73.09 ; Ab normal renal ultrasound R93.429 ; Dysuria R30.0 ; Cystitis without hematuria N30.90 ; Hypokalemia E87.6 ; Mixed hyperlipidemia E78.2 and Hematuria, unspecified type R31.9 [place] [address] [id number] Nov, Hypokalemia E87.6 ; Mixed hy perlipidemia E78.2 and Hematuria, unspecified type R31.9 [place] [address] [place] [id number] [address] [place] [id number] Nov, [facility] [address] [id number] [address] [place] [id number] Nov, Hypokalemia E87.6 [facility] [address] [id number] [address] [place] [id number] Nov, [facility] [address] [id number] [address] [place] [id number] Nov, Abnormal renal ultrasound R9 3.429 [facility] [address] [id number] [address] [place] [id number] Nov, Abnormal renal ultrasound R9 3.429 [facility] [address] [id number] [address] [place] [id number] Nov, Hematuria, unspecified type R31.9 and Neuroforaminal stenosis of spine M99.89 [place] [address] [id number] [address] [place] [id number] Nov, Dysuria R30.0 [place] [address] [id number] [address] [place] [id number] Oct, Lateral epicondylitis, right elbow M77.11 [place] [address] [id number] [address] [place] [id number] Oct, Neuroforaminal stenosis of s pine M99.89 ; Visit for TB skin test Z11.1 and Essential hypertension I10 [facility] [address] [id number] [address] [place] [id number] Oct, [place] [address] [id number] [address] [place] [id number] Oct, Neuroforaminal stenosis of s pine M99.89 [place] [address] [id number] [address] [place] [id number] Oct, Visit for TB skin test Z11.1 [place] [address] [id number] [address] [place] [id number] 05 Oct, 2017 Cystitis without hematuria N 30.90 [place] [address] [facility] [id number] [address] [place] [id number] 28 Sep, 2017 Screening breast examination Z12.39 [place] [address] [facility] [id number] [address] [place] [id number] 26 Sep, 2017 Dysuria R30.0 and Cystitis w ithout hematuria N30.90 [place] [address] [facility] [id number] [address] [place] [id number] 14 Sep, 2017 Essential hypertension I10 a nd Neuroforaminal stenosis of spine M99.89 [place] [address] [facility] [id number] [place] [id number] 04 Sep, 2017 Abnormal glucose R73.09 [place] [address] [place] [id number] [place] [id number] August, Lateral epicondylitis, right elbow M77.11 [place] [address] [place] [id number] [place] [phone] August, Screen for STD (sexually tra nsmitted disease) Z11.3 [place] [address] [place] [id number] [place] [address] August, Neuroforaminal stenosis of s pine M99.89 ; Mixed hyperlipidemia E78.2 ; Elevated fasting glucose R73.01 ; Screening mammogram, encounter for Z12.31 and Encounter for well woman exam without gynecological exam Z00.00 [place] [address] [place] [id number] [address] [place] [id number] August, Neuroforaminal stenosis of s pine M99.89 [place] [address] [place] [id number] [address] [place] [id number] August, Essential hypertension I10 ; Hypokalemia E87.6 and Mixed hyperlipidemia E78.2 [place] [address] [place] [id number] [address] [place] [id number] Jul, [facility] [address] [id number] [address] [place] [id number] Jul, Neuroforaminal stenosis of s jose M99.89 [facility] [address] [id number] [address] [place] [id number] Jul, Lateral epicondylitis, right elbow M77.11 [facility] [address] [id number] [address] [place] [id number] Jul, [facility] [address] [id number] [address] [place] [id number] Jun, High ankle sprain of right l ower extremity, initial encounter S93.431A [place] [address] [id number] [address] [place] [id number] Jun, Essential hypertension I10 [place] [address] [id number] [address] [place] [id number] Jun, [facility] [address] [id number] [address] [place] [id number] Jun, [facility] [address] [id number] [address] [place] [id number] Jun, Neuroforaminal stenosis of ayla garcia M99.89 [facility] [address] [id number] [address] [place] [id number] Jun, Pain of right upper extremit y M79.601 and Essential hypertension I10 [facility] [address] [id number] [address] [place] [id number] Jun, [facility] [address] [id number] [address] [place] [id number] Jun, Dysuria R30.0 ; Acute cystit is with hematuria N30.01 and Screen for STD (sexually transmitted disease) Z11.3 [facility] [address] [id number] [address] [place] [id number] May, Chronic pain due to trauma G 89.21 [place] [address] [facility] [id number] [address] [place] [id number] May, Essential hypertension I10 [place] [address] [facility] [id number] [address] [place] [id number] May, Neuroforaminal stenosis of s jose M99.89 [place] [address] [place] [id number] [address] [place] [id number] Apr, Allergic reaction, initial e ncounter T78.40XA [place] [address] [facility] [id number] [address] [place] [id number] Apr, Low back pain, unspecified b ack pain laterality, unspecified chronicity, with sciatica presence unspecified M54.5 ; Acute cystitis with hematuria N30.01 ; Neuroforaminal stenosis of spine M99.89 ; Bilateral acute serous otitis media, recurrence not specified H65.03 ; Mixed hyperlipidemia E78.2 ; Essential hypertension I10 ; Immunization counseling Z71.89 and Encounter for immunization Z23 [place] [id number] [place] [id number] Apr, Neck pain M54.2 [place] [address] [facility] [id number] [address] [place] [id number] Mar, Neuroforaminal stenosis of s jose M99.89 [place] [address] [facility] [id number] [address] [place] [id number] Mar, Pharyngitis due to other org anism J02.8 [place] [address] [facility] [id number] [address] [place] [id number] Feb, Neuroforaminal stenosis of s pine M99.89 [place] [address] [facility] [id number] [address] [place] [id number] 08 Feb, 2017 UTI (urinary tract infection ) N39.0 [place] [address] [facility] [id number] [address] [place] [id number] 07 Feb, 2017 Recent urinary tract infecti on Z87.440 ; Neuroforaminal stenosis of spine M99.89 ; Neck pain M54.2 ; Chronic pain due to trauma G89.21 and Recurrent UTI N39.0 [place] [address] [facility] [id number] [address] [place] [id number] Feb, [place] [address] [facility] [id number] [address] [place] [id number] Jan, Neuroforaminal stenosis of s pine M99.89 [place] [address] [facility] [id number] [address] [place] [id number] Dec, Neuroforaminal stenosis of s pine M99.89 [place] [address] [facility] [id number] [address] [place] [id number] 18 Dec, 2016 Acute seasonal allergic rhin itis due to pollen J30.1 [place] [address] [facility] [id number] [address] [place] [id number] 08 Dec, 2016 [place] [address] [facility] [id number] [address] [place] [id number] 08 Dec, 2016 Acute seasonal allergic rhin itis, unspecified trigger J30.2 ; Allergic conjunctivitis of both eyes H10.13 and Dysfunction of both eustachian tubes H69.83 [place] [address] [address] [facility] [id number] [address] [place] [id number] 07 Dec, 2016 [place] [address] [facility] [id number] [address] [place] [id number] Dec, Nevus D22.9 [place] [address] [facility] [id number] [address] [place] [id number] Nov, Chronic pain due to trauma G 89.21 and Neuroforaminal stenosis of spine M99.89 [place] [address] [facility] [id number] [address] [place] [id number] Nov, Neuroforaminal stenosis of s pine M99.89 ; Essential hypertension I10 ; Mixed hyperlipidemia E78.2 ; Hypokalemia E87.6 ; Neck pain M54.2 and Nevus D22.9 [facility] [address] [id number] [address] [place] [id number] Oct, Neuroforaminal stenosis of s pine M99.89 [facility] [address] [id number] [address] [place] [id number] Sep, Neuroforaminal stenosis of s pine M99.89 [facility] [address] [id number] [address] [place] [id number] Sep, [facility] [address] [id number] [address] [place] [id number] August, [facility] [address] [id number] [address] [place] [id number] August, Neck pain M54.2 and Neurofor aminal stenosis of spine M99.89 [facility] [address] [id number] [place] [id number] August, Routine gynecological examin ation Z01.419 and Screening breast examination Z12.39 [facility] [address] [id number] [place] [id number] Jul, [facility] [address] [id number] [place] [id number] Jul, [facility] [address] [id number] [place] [id number] Jul, Neuroforaminal stenosis of s pine M99.89 [facility] [address] [id number] [place] [id number] Jul, [facility] [address] [id number] [place] [id number] Jul, Neuroforaminal stenosis of l umbar 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 [facility] [address] [id number] [place] [id number] Jul, [facility] [address] [id number] [address] [place] [id number] Jul, [facility] [address] [id number] [place] [id number] Jun, Neuroforaminal stenosis of ayla garcia M99.89 [facility] [address] [id number] [place] [id number] Jun, Uterine leiomyoma, unspecifi ed location D25.9 and Allergic reaction caused by a drug, initial encounter T78.40XA [facility] [address] [id number] [place] [id number] Jun, [place] [id number] [id number] [place] [id number] May, UTI symptoms R39.9 and Pain of right sacroiliac joint M53.3 [place] [address] [address] [facility] [id number] [address] [place] [id number] May, Neuroforaminal stenosis of ayla garcia M99.89 [facility] [address] [id number] [address] [place] [id number] May, [place] [address] [address] [facility] [id number] [address] [place] [id number] May, Acute mucoid otitis media of left ear H65.112 and Acute non- recurrent maxillary sinusitis J01.00 [place] [address] [address] [facility] [id number] [address] [place] [id number] May, Acute bacterial conjunctivit is of both eyes H10.33 ; Left arm pain M79.602 and Hypokalemia E87.6 [place] [id number] [id number] [address] [place] [id number] Apr, [place] [address] [address] [facility] [id number] [address] [place] [id number] Apr, Neuroforaminal stenosis of ayla garcia M99.89 ; Neck pain M54.2 ; Chronic pain due to trauma G89.21 ; Mixed hyperlipidemia E78.2 ; Essential hypertension I10 and Hypokalemia E87.6 [facility] [address] [id number] [address] [place] [id number] Mar, Oral candidiasis B37.0 ; Nathaniel roforaminal stenosis of spine M99.89 ; Neck pain M54.2 and Chronic pain due to trauma G89.21 [facility] [address] [id number] [address] [place] [id number] Feb, [facility] [address] [id number] [address] [place] [id number] Feb, [facility] [address] [id number] [address] [place] [id number] Feb, UTI (urinary tract infection ) N39.0 [facility] [address] [id number] [address] [place] [id number] Feb, Dysuria R30.0 [facility] [address] [id number] [address] [place] [id number] Feb, Dysuria R30.0 [facility] [address] [id number] [address] [place] [id number] Feb, Neuroforaminal stenosis of s pine M99.89 ; Neck pain M54.2 ; Essential hypertension I10 ; Chronic pain due to trauma G89.21 ; Dysuria R30.0 ; Abnormal MRI, shoulder R93.8 and Acute cystitis without hematuria N30.00 [facility] [address] [id number] [address] [place] [id number] Jan, [facility] [address] [id number] [address] [place] [id number] Jan, [facility] [address] [id number] [address] [place] [id number] Jan, [facility] [address] [id number] [address] [place] [id number] Jan, Abnormal MRI R93.8 [facility] [address] [id number] [address] [place] [id number] 29 Dec, 2015 [facility] [address] [id number] [address] [place] [id number] 15 Dec, 2015 Acute pain of left shoulder M25.512 [facility] [address] [id number] [address] [place] [id number] 09 Dec, 2015 [facility] [address] [id number] [address] [place] [id number] 08 Dec, 2015 [facility] [address] [id number] [address] [place] [id number] 07 Dec, 2015 Acute pain of left shoulder M25.512 [facility] [address] [id number] [address] [place] [id number] 23 Nov, 2015 [facility] [address] [id number] [address] [place] [id number] 16 Nov, 2015 Neuroforaminal stenosis of s pine M99.89 ; Neck pain M54.2 ; Abnormal mammogram R92.8 ; Essential hypertension I10 and Chronic pain due to trauma G89.21 [facility] [address] [id number] [address] [place] [id number] Nov, [facility] [address] [id number] [address] [place] [id number] Oct, Acute stress disorder F43.0 [facility] [address] [id number] [address] [place] [id number] Oct, [facility] [address] [id number] [address] [place] [id number] Oct, [facility] [address] [id number] [address] [place] [id number] 05 Oct, 2015 [facility] [address] [id number] [address] [place] [id number] Sep, [facility] [address] [id number] [address] [place] [id number] August, [facility] [address] [id number] [address] [place] [id number] Jul, Neuroforaminal stenosis of s pine M99.89 ; Neck pain M54.2 ; Abnormal mammogram R92.8 and Essential hypertension I10 [facility] [address] [id number] [address] [place] [id number] Jul, [facility] [address] [id number] [address] [place] [id number] Jul, [facility] [address] [id number] [address] [place] [id number] Jul, Abnormal mammogram R92.8 [facility] [address] [id number] [address] [place] [id number] Jul, [facility] [address] [id number] [address] [place] [id number] Jul, UTI (urinary tract infection ) N39.0 [facility] [address] [id number] [address] [place] [id number] Jul, Dysuria R30.0 [facility] [address] [id number] [address] [place] [id number] Jun, [facility] [address] [id number] [address] [place] [id number] Jun, [facility] [address] [id number] [address] [place] [id number] Jun, Hypokalemia E87.6 and Hematu martina R31.9 [facility] [address] [id number] [address] [place] [id number] Jun, Hypokalemia E87.6 [facility] [address] [id number] [address] [place] [id number] Jun, [facility] [address] [id number] [address] [place] [id number] Jun, Hypokalemia E87.6 [facility] [address] [facility] [id number] [address] [place] [id number] Jun, Hypokalemia E87.6 [place] [address] [id number] 15 Jun, 2015 Neuroforaminal stenosis of s pine M99.89 ; Hypokalemia E87.6 ; Neck pain M54.2 ; Essential hypertension I10 ; Mixed hyperlipidemia E78.2 and Screening breast examination Z12.39 [place] [address] [id number] 08 Jun, 2015 Dysuria R30.0 ; UTI (urinary tract infection) N39.0 and Hematuria R31.9 [place] [address] [id number] 26 May, 2015 [place] [address] [id number] 18 May, 2015 High risk sexual behavior Z7 2.51 ; Hypokalemia E87.6 ; Neuroforaminal stenosis of spine M99.89 ; Neck pain M54.2 ; Essential hypertension I10 ; Mixed hyperlipidemia E78.2 ; STD exposure Z20.2 and Concern about STD in female without diagnosis Z71.1 [place] [address] [address] [place] [id number] [place] [id number] 16 May, 2015 Neuroforaminal stenosis of s pine M99.89 ; Neck pain M54.2 ; Hypokalemia E87.6 ; Essential hypertension I10 and Mixed hyperlipidemia E78.2 [place] [address] [id number] [place] [id number] 11 May, 2015 [facility] [address] [place] [id number] [place] [id number] 08 May, 2015 High risk sexual behavior Z7 2.51 ; STD exposure Z20.2 and Concern about STD in female without diagnosis Z71.1 [place] [address] [id number] May, [facility] [address] [id number] Apr, Neuroforaminal stenosis of ayla garcia M99.89 ; Mixed hyperlipidemia E78.2 ; Essential hypertension I10 and Hypokalemia E87.6 [place] [address] [id number] Mar, [place] [address] [id number] Mar, Hypokalemia E87.6 [place] [address] [id number] Mar, Neuroforaminal stenosis of s jose M99.89 ; Mixed hyperlipidemia E78.2 ; Neck pain M54.2 ; Essential hypertension I10 ; Abnormal fasting glucose R73.09 ; Hypokalemia E87.6 and Constipation K59.00 [place] [address] [id number] Feb, Neuroforaminal stenosis of ayla garcia M99.89 ; Mixed hyperlipidemia E78.2 ; Neck pain M54.2 ; Essential hypertension I10 ; Abnormal fasting glucose R73.09 ; Hypokalemia E87.6 and Constipation K59.00 [place] [address] [id number] Feb, Elevated fasting blood sugar R73.01 [place] [address] [id number] Feb, Elevated fasting blood sugar R73.01 [place] [address] [id number] Feb, Hair loss L65.9 [place] [address] [address] [place] [id number] [address] [place] [id number] Feb, Sinusitis J32.9 ; Essential hypertension I10 and Hair loss L65.9 [place] [address] [address] [place] [id number] [address] [place] [id number] Jan, [facility] [address] [id number] [address] [place] [id number] Jan, Essential hypertension I10 ; Neuroforaminal stenosis of spine M99.89 ; Neck pain M54.2 ; Mixed hyperlipidemia E78.2 and Anxiety F41.9 [facility] [address] [id number] [address] [place] [id number] Jan, [facility] [address] [id number] [address] [place] [id number] Jan, Mixed hyperlipidemia E78.2 ; Essential (primary) hypertension I10 ; Strain of muscle, fascia and tendon at neck level, subsequent encounter S16.1XXD and Tension-type headache, unspecified, not intractable G44.209 [facility] [address] [id number] [address] [place] [id number] Dec, Lumbar back pain 724.2 and N euroforaminal stenosis of spine 724.00 [facility] [address] [id number] [address] [place] [id number] Nov, [facility] [address] [id number] [address] [place] [id number] Nov, Lumbar back pain 724.2 and N euroforaminal stenosis of spine 724.00 [facility] [address] [id number] [address] [place] [id number] Nov, Edema 782.3 ; Lumbar back pa in 724.2 ; Essential hypertension, benign 401.1 ; Hyperlipemia 272.4 ; Neuroforaminal stenosis of spine 724.00 and Post-concussion headache 339.20 [facility] [address] [id number] [address] [place] [id number] Nov, [facility] [address] [id number] [address] [place] [id number] Nov, [facility] [address] [id number] [address] [place] [id number] Oct, Essential hypertension, sheridan gn 401.1 [place] [address] [address] [facility] [id number] [place] [id number] Oct, Edema 782.3 ; Lumbar back pa in 724.2 ; Essential hypertension, benign 401.1 ; Hyperlipemia 272.4 ; Neuroforaminal stenosis of spine 724.00 and Post-concussion headache 339.20 [place] [address] [address] [place] [id number] [address] [place] [id number] Oct, [place] [address] [address] [place] [id number] [address] [place] [id number] Oct, Edema 782.3 [place] [address] [address] [place] [id number] [place] [id number] Oct, Lumbar back pain 724.[address] [address] Oct, Cervicalgia 723.1 ; Lumbar b ack pain 724.2 and High risk medication use V58.69 [place] [address] [id number] Sep, [place] [address] [address] [place] [id number] [place] [id number] Sep, Lumbar strain 847.2 [place] [address] [address] [place] [id number] [address] [place] [id number] August, Edema 782.3 and Eustachian t ube dysfunction 381.81 [place] [address] [address] [place] [id number] [address] [place] [id number] August, [place] [address] [address] [place] [id number] [place] [id number] August, Eustachian tube dysfunction 381.81 [place] [address] [address] [place] [id number] [address] [place] [id number] 29 Apr, 2015 Otalgia 388.70 and Otitis me jonathon 382.9 [facility] [address] [id number] [address] [place] [address], [place] [id number] Jul, [facility] [address] [id number] [address] [place] [id number] Jul, [facility] [address] [id number] [address] [place] [address], [place] [address] Jul, [facility] [address] [id number] [address] [place] [id number] 14 Jul, 2014 [facility] [address] [id number] [address] [place] [address], [place] [address] Jul, [facility] [address] [id number] [address] [place] [id number] Jun, [facility] [address] [id number] [address] [place] [id number] Jun, [facility] [address] [id number] [address] [place] [id number] Jun, [facility] [address] [id number] [address] [place] [id number] May, [facility] [address] [id number] [address] [place] [id number] May, [facility] [address] [id number] [address] [place] [id number] May, 2014 [facility] [address] [id number] [address] [place] [id number] May, [facility] [address] [id number] [address] [place] [id number] May, [facility] [address] [id number] [address] [place] [id number] May, [facility] [address] [id number] [address] [place] [id number] May, [facility] [address] [id number] [address] [place] [address], [place] [address] May, [facility] [address] [id number] [address] [place] [address], [place] [address] May, [facility] [address] [id number] [address] [place] [address], [place] [address] May, [facility] [address] [id number] [address] [place] [address], [place] [address] Apr, [facility] [address] [id number] [address] [place] [address], [place] [address] Apr, [facility] [address] [id number] [address] [place] [address], [place] [address] Apr, [facility] [address] [id number] [address] [place] [address], [place] [address] Apr, [facility] [address] [id number] [address] [place] [address], [place] [address] Apr, [facility] [address] [id number] [address] [place] [address], [place] [address] Apr, [facility] [address] [id number] [address] [place] [address], [place] [address] Apr, [facility] [address] [id number] [address] [place] [address], [place] [address] Apr, [facility] [address] [id number] [address] [place] [address], [place] [id number] Apr, [facility] [address] [id number] [address] [place] [address], [place] [address] Apr, [facility] [address] [id number] [address] [place] [address], [place] [address] Apr, [facility] [address] [id number] [address] [place] [address], [place] [address] Apr, [facility] [address] [id number] [address] [place] [address], [place] [address] Apr, [facility] [address] [id number] [address] [place] [address], [place] [address] Apr, [facility] [address] [id number] [address] [place] [address], [place] [id number] Apr, [facility] [address] [id number] [address] [place] [address], [place] [address] Mar, [facility] [address] [id number] [address] [place] [address], [place] [id number] Mar, [facility] [address] [id number] [address] [place] [address], [place] [address] Mar, [facility] [address] [id number] [address] [place] [address], [place] [address] Mar, [facility] [address] [id number] [address] [place] [address], [place] [address] Feb, [facility] [address] [id number] [address] [place] [address], [place] [address] Feb, [facility] [address] [id number] [address] [place] [address], [place] [address] Feb, [facility] [address] [id number] [address] [place] [address], [place] [address] Feb, [facility] [address] [id number] [address] [place] [address], [place] [address] Jan, [facility] [address] [id number] [address] [place] [id number] Jan, [facility] [address] [id number] [address] [place] [address], [place] [address] Jan, [facility] [address] [id number] [address] [place] [address], [place] [address] Jan, [facility] [address] [id number] [address] [place] [address], [place] [address] Jan, [facility] [address] [id number] [address] [place] [address], [place] [address] Jan, [facility] [address] [id number] [address] [place] [address], [place] [address] Jan, [facility] [address] [id number] [address] [place] [address], [place] [address] Jan, [facility] [address] [id number] [address] [place] [address], [place] [address] Dec, [facility] [address] [id number] [address] [place] [address], [place] [address] Dec, [facility] [address] [id number] [address] [place] [address], [place] [address] Dec, [facility] [address] [id number] [address] [place] [address], [place] [address] Dec, [facility] [address] [id number] [address] [place] [address], [place] [address] Oct, [facility] [address] [id number] [address] [place] [address], [place] [address] Oct, [facility] [address] [id number] [address] [place] [address], [place] [address] Oct, [facility] [address] [id number] [address] [place] [address], [place] [address] Oct, [facility] [address] [id number] [address] [place] [address], [place] [address] Oct, [facility] [address] [id number] [address] [place] [address], [place] [address] Oct, [facility] [address] [id number] [address] [place] [address], [place] [address] Oct, [facility] [address] [id number] [address] [place] [address], [place] [address] Oct, [facility] [address] [id number] [address] [place] [address], [place] [address] Sep, [facility] [address] [id number] [address] [place] [address], [place] [address] Sep, [facility] [address] [id number] [address] [place] [address], [place] [address] Sep, [facility] [address] [id number] [address] [place] [address], [place] [address] Sep, [facility] [address] [id number] [address] [place] [address], [place] [address] Sep, [facility] [address] [id number] [address] [place] [address], [place] [address] Sep, [facility] [address] [id number] [address] [place] [address], [place] [address] Sep, [facility] [address] [id number] [address] [place] [address], [place] [address] Sep, [facility] [address] [id number] [address] [place] [address], [place] [address] Sep, [facility] [address] [id number] [address] [place] [address], [place] [address] Sep, [facility] [address] [id number] [address] [place] [address], [place] [address] August, [facility] [address] [id number] [address] [place] [address], [place] [id number] August, [facility] [address] [id number] [address] [place] [address], [place] [address] August, [facility] [address] [id number] [address] [place] [address], [place] [address] August, [facility] [address] [id number] [address] [place] [address], [place] [address] August, [facility] [address] [id number] [address] [place] [address], [place] [address] August, [facility] [address] [id number] [address] [place] [address], [place] [address] August, [facility] [address] [id number] [address] [place] [address], [place] [address] August, [facility] [address] [id number] [address] [place] [address], [place] [address] August, [facility] [address] [id number] [address] [place] [address], [place] [address] August, [facility] [address] [id number] [address] [place] [address], [place] [address] August, [facility] [address] [id number] [address] [place] [address], [place] [address] August, [facility] [address] [id number] [address] [place] [address], [place] [address] Jul, [facility] [address] [id number] [address] [place] [address], [place] [address] Jul, [facility] [address] [id number] [address] [place] [address], [place] [address] Jul, [facility] [address] [id number] [address] [place] [address], [place] [address] Jul, [facility] [address] [id number] [address] [place] [address], [place] [address] Jul, [facility] [address] [id number] [address] [place] [address], [place] [address] Jul, [facility] [address] [id number] [address] [place] [address], [place] [address] Jun, [facility] [address] [id number] [address] [place] [address], [place] [address] Jun, [facility] [address] [id number] [address] [place] [address], [place] [address] May, [facility] [address] [id number] [address] [place] [address], [place] [address] May, [facility] [address] [id number] [address] [place] [address], [place] [id number] Apr, [facility] [address] [id number] [address] [place] [address], [place] [address] Apr, [facility] [address] [id number] [address] [place] [address], [place] [address] Apr, [facility] [address] [id number] [address] [place] [address], [place] [address] Apr, [facility] [address] [id number] [address] [place] [address], [place] [address] Apr, [facility] [address] [id number] [address] [place] [address], [place] [address] Apr, [facility] [address] [id number] [address] [place] [address], [place] [address] Apr, [facility] [address] [id number] [address] [place] [address], [place] [address] Apr, [facility] [address] [id number] [address] [place] [address], [place] [address] Apr, [facility] [address] [id number] [address] [place] [address], [place] [address] Apr, [facility] [address] [id number] [address] [place] [address], [place] [address] Apr, [facility] [address] [id number] [address] [place] [address], [place] [address] Apr, [facility] [address] [id number] [address] [place] [address], [place] [address] Apr, [facility] [address] [id number] [address] [place] [address], [place] [address] Mar, [facility] [address] [id number] [address] [place] [address], [place] [address] Mar, [facility] [address] [id number] [address] [place] [address], [place] [address] Mar, [facility] [address] [id number] [address] [place] [address], [place] [address] Mar, [facility] [address] [id number] [address] [place] [address], [place] [address] Feb, [facility] [address] [id number] [address] [place] [address], [place] [address] Feb, [facility] [address] [id number] [address] [place] [id number] Feb, [facility] [address] [id number] [address] [place] [address], [place] [address] Feb, [facility] [address] [id number] [address] [place] [id number] Jan, [facility] [address] [id number] [address] [place] [address], [place] [address] Jan, [facility] [address] [id number] [address] [place] [id number] Jan, [facility] [address] [id number] [address] [place] [id number] Jan, [facility] [address] [id number] [address] [place] [id number] Jan, [facility] [address] [id number] [address] [place] [id number] Jan, [facility] [address] [id number] [address] [place] [id number] Jan, [facility] [address] [id number] [address] [place] [address], [place] [id number] Jan, [facility] [address] [id number] [address] [place] [id number] Jan, [facility] [address] [id number] [address] [place] [phone] Dec, [facility] [address] [id number] [address] [place] [address], [place] [id number] 16 Dec, 2012 [facility] [address] [id number] [address] [place] [address], [place] [id number] 16 Dec, 2012 [facility] [address] [id number] [address] [place] [address], [place] [id number] 13 Dec, 2012 [facility] [address] [id number] [address] [place] [address], [place] [address] Nov, [facility] [address] [id number] [address] [place] [address], [place] [address] Nov, [facility] [address] [id number] [address] [place] [address], [place] [id number] Nov, [facility] [address] [id number] [address] [place] [address], [place] [address] Nov, [facility] [address] [id number] [address] [place] [address], [place] [address] Oct, [facility] [address] [id number] [address] [place] [address], [place] [address] Sep, [facility] [address] [id number] [address] [place] [address], [place] [id number] August, [facility] [address] [id number] [address] [place] [address], [place] [address] August, [facility] [address] [id number] [address] [place] [address], [place] [address] August, [facility] [address] [id number] [address] [place] [address], [place] [address] August, [facility] [address] [id number] [address] [place] [address], [place] [address] August, [facility] [address] [id number] [address] [place] [address], [place] [address] August, [facility] [address] [id number] [address] [place] [address], [place] [address] August, [facility] [address] [id number] [address] [place] [address], [place] [address] August, [facility] [address] [id number] [address] [place] [address], [place] [address] August, [facility] [address] [id number] [address] [place] [address], [place] [address] August, [facility] [address] [id number] [address] [place] [address], [place] [address] August, [facility] [address] [id number] [address] [place] [address], [place] [id number] August, [facility] [address] [id number] [address] [place] [address], [place] [address] Jul, [facility] [address] [id number] [address] [place] [address], [place] [address] Jul, [facility] [address] [id number] [address] [place] [address], [place] [address] Jul, [facility] [address] [id number] [address] [place] [address], [place] [address] Jul, [facility] [address] [id number] [address] [place] [address], [place] [address] Jul, [facility] [address] [id number] [address] [place] [address], [place] [address] Jul, [facility] [address] [id number] [address] [place] [address], [place] [address] Jul, [facility] [address] [id number] [address] [place] [address], [place] [id number] Jul, [facility] [address] [id number] [address] [place] [address], [place] [address] Jul, [facility] [address] [id number] [address] [place] [address], [place] [address] Jul, [facility] [address] [id number] [address] [place] [id number] Jul, [facility] [address] [id number] [address] [place] [address], [place] [address] Jun, [facility] [address] [id number] [address] [place] [address], [place] [id number] Jun, [facility] [address] [id number] [address] [place] [address], [place] [id number] Jun, [facility] [address] [id number] [address] [place] [address], [place] [address] Jun, [facility] [address] [id number] [address] [place] [address], [place] [address] May, [facility] [address] [id number] [address] [place] [address], [place] [address] 14 May, 2012 [facility] [address] [id number] [address] [place] [address], [place] [id number] 05 May, 2012 [facility] [address] [id number] [address] [place] [address], [place] [address] 04 May, 2012 [facility] [address] [id number] [address] [place] [address], [place] [address] 04 May, 2012 [facility] [address] [id number] [address] [place] [address], [place] [address] May, [facility] [address] [id number] [address] [place] [address], [place] [address] Apr, [facility] [address] [id number] [address] [place] [address], [place] [address] Apr, [facility] [address] [id number] [address] [place] [address], [place] [address] 30 Apr, 2012 [facility] [address] [id number] [address] [place] [address], [place] [address] Apr, [facility] [address] [id number] [address] [place] [address], [place] [address] Mar, [facility] [address] [id number] [address] [place] [address], [place] [address] 14 Mar, 2012 [facility] [address] [id number] [address] [place] [address], [place] [address] Mar, [facility] [address] [id number] [address] [place] [address], [place] [address] Mar, [facility] [address] [id number] [address] [place] [address], [place] [address] Mar, [facility] [address] [id number] [address] [place] [address], [place] [address] Mar, [facility] [address] [id number] [address] [place] [address], [place] [address] Mar, [facility] [address] [id number] [address] [place] [address], [place] [address] Feb, [facility] [address] [id number] [address] [place] [address], [place] [address] Feb, [facility] [address] [id number] [address] [place] [address], [place] [address] Feb, [facility] [address] [id number] [address] [place] [address], [place] [address] Feb, [facility] [address] [id number] [address] [place] [address], [place] [address] Jan, [facility] [address] [id number] [address] [place] [address], [place] [address] Jan, [facility] [address] [id number] [address] [place] [address], [place] [address] Jan, [facility] [address] [id number] [address] [place] [address], [place] [address] Jan, [facility] [address] [id number] [address] [place] [address], [place] [address] Jan, [facility] [address] [id number] [address] [place] [address], [place] [address] Jan, [facility] [address] [id number] [address] [place] [address], [place] [address] Dec, [facility] [address] [id number] [address] [place] [address], [place] [address] Dec, [facility] [address] [id number] [address] [place] [address], [place] [address] Nov, [facility] [address] [id number] [address] [place] [address], [place] [address] Sep, [facility] [address] [id number] [address] [place] [address], [place] [address] August, [facility] [address] [id number] [address] [place] [address], [place] [address] August, [facility] [address] [id number] [address] [place] [address], [place] [address] August, [facility] [address] [id number] [address] [place] [address], [place] [address] August, [facility] [address] [id number] [address] [place] [address], [place] [address] August, [facility] [address] [id number] [address] [place] [address], [place] [address] Jun, [facility] [address] [id number] [address] [place] [address], [place] [address] Jun, [facility] [address] [id number] [address] [place] [address], [place] [address] Apr, [facility] [address] [id number] [address] [place] [address], [place] [address] Apr, [facility] [address] [id number] [address] [place] [address], [place] [address] Mar, [facility] [address] [id number] [address] [place] [address], [place] [address] Feb, [facility] [address] [id number] [address] [place] [id number] 14 Feb, 2011 [facility] [address] [id number] [address] [place] [id number] 14 Feb, 2011 [facility] [address] [id number] [address] [place] [id number] 17 Jan, 2011 [facility] [address] [id number] [address] [place] [id number] 15 Jan, 2011 [facility] [address] [id number] [address] [place] [id number] 15 Jan, 2011 [facility] [address] [id number] [address] [place] [id number] 14 Jan, 2011 [facility] [address] [id number] [address] [place] [id number] 15 May, 2010 [facility] [address] [id number] [address] [place] [id number] Mar, [facility] [address] [id number] [address] [place] [id number] Oct, [facility] [address] [id number] [address] [place] [id number] Sep, [facility] [address] [id number] [address] [place] [id number] Mar, [facility] [address] [id number] [address] [place] [id number] Jan, [facility] [address] [id number] [address] [place] [id number] Jan, [facility] [address] [id number] [address] [place] [id number] May, IMMUNIZATIONS No Known Immunizations SOCIAL HISTORY Never Assessed REASON FOR VISIT PLAN OF CARE VITAL SIGNS Height 62 in 2013-01-08 Weight 173.66 lbs 2013-01-08 Temperature 98.6 degrees Fahrenheit 2013-01-08 Heart Rate 82 bpm 2013-01-08 Respiratory Rate 18 2013-01-08 Blood pressure systolic 134 mmHg 2013-01-08 Blood pressure diastolic 82 mmHg 2013-01-08 MEDICATIONS Unknown Medications RESULTS No Results PROCEDURES Procedure Date Ordered Result Body Site SCR PAP SMER;NEW PT OBTAIN PREP&CONVY-LAB Jan 08, 2013 CYTOPATH C/V AUTO FLUID REDO Jan 08, 2013 INSTRUCTIONS MEDICATIONS ADMINISTERED No Known Medications MEDICAL (GENERAL) HISTORY Type Description Date Medical History hypertension Medical History Colposcopy with loop electro de excision of the cervix was performed 06/2012, mild squamous atypia (no definite dyplasia). Performed at [facility] Dr. Joy. Medical History Acute [...]
--- OUTSIDE RECORDS SUMMARY | 2019-11-23 05:44 | XMS REPORT ---
Author Author Liana Coe Doctor Organization [facility] Address Unknown Phone Unavailable Care Team Providers Care Manager Testing Name Role Phone Migration, Doctor Unavailable Unavailable PROBLEMS Type Condition ICD9-CM Code [id number] Code Onset Dates Condition S tatus SNOMED Code Problem Hematuria, unspecified type R31.9 Ac tive 45503798 Problem Abnormal glucose R73.09 Active 102 029706 Problem Anxiety F41.9 Active 00607964 Problem Neck pain M54.2 Active 69857160 Problem Essential hypertension I10 Active 21048191 Problem Rhinosinusitis J32.9 Active 63941 4004 Problem Neuroforaminal stenosis of spine M99.89 Active 846626028073 Problem Other chronic pain G89.29 Active 8 2657342 Problem Abnormal renal ultrasound R93.429 Acti ve [id number] Problem Mixed hyperlipidemia E78.2 Active 24237992 Problem Hypokalemia E87.6 Active 39130687 Problem Chronic pain due to trauma G89.21 Act juanis 272323328 Problem Seasonal allergies J30.2 Active 4 [id number] ALLERGIES No Information ENCOUNTERS Encounter Location Date Diagnosis [facility] [address] [facility] [id number] [address] [place] [address] Oct, [facility] [address] [facility] [id number] [address] [place] [address] Sep, [facility] [address] [facility] [id number] [address] [place] [address] Sep, Neuroforaminal stenosis of s pine M99.89 [facility] [address] [facility] [id number] [address] [place] [address] Sep, Encounter for laboratory luisa ting for COVID-19 virus V73.89 [facility] [address] [facility] [id number] [address] [place] [address] August, Neuroforaminal stenosis of s pine M99.89 [facility] [address] [id number] [address] [place] [address] August, Acute bacterial conjunctivit is of right eye H10.31 [facility] [address] [id number] [address] [place] [address] August, Low back pain M54.5 ; Other chronic pain G89.29 and Dysuria R30.0 [facility] [address] [id number] [address] [place] [address] August, [facility] [address] [id number] [address] [place] [address] Jul, Neuroforaminal stenosis of ayla garcia M99.89 [facility] [address] [id number] [address] [place] [address] Jul, Allergic conjunctivitis of b oth eyes H10.13 [facility] [address] [id number] [address] [place] [address] Jun, Hypokalemia E87.6 [facility] [address] [id number] [address] [place] [address] Jun, [place] [address] [id number] [address] [place] [address] Jun, Neuroforaminal stenosis of ayla garcia M99.89 [facility] [address] [id number] [address] [place] [address] Jun, Lateral epicondylitis, left elbow M77.12 and Medial epicondylitis, left elbow M77.02 [facility] [address] [id number] [address] [place] [address] Jun, Foraminal stenosis of lumbar region M48.061 ; Segmental dysfunction of thoracic region M99.02 ; Segmental dysfunction of lumbar region M99.03 and Segmental dysfunction of sacral region M99.04 [facility] [address] [id number] [address] [place] [address] May, Left elbow pain M25.522 [facility] [address] [id number] [address] [place] [address] May, [facility] [address] [id number] [address] [place] [address] May, Left elbow pain M25.522 [facility] [address] [id number] [address] [place] [address] May, Neuroforaminal stenosis of s pine M99.89 [facility] [address] [id number] [address] [place] [address] May, Rhinosinusitis J32.9 ; Left elbow pain M25.522 and Neck pain M54.2 [facility] [address] [id number] [address] [place] [address] 14 May, 2019 Lateral epicondylitis of lef t elbow M77.12 [facility] [address] [id number] [address] [place] [address] Apr, Neuroforaminal stenosis of s pine M99.89 [facility] [address] [id number] [address] [place] [address] Apr, Essential hypertension I10 a nd Mixed hyperlipidemia E78.2 [facility] [address] [id number] [address] [place] [address] Mar, Neuroforaminal stenosis of s pine M99.89 [facility] [address] [id number] [address] [place] [address] Mar, Epicondylitis, lateral, left M77.12 [facility] [address] [id number] [address] [place] [address] Mar, [facility] [address] [id number] [address] [place] [address] Mar, Neuroforaminal stenosis of s pine M99.89 [facility] [address] [id number] [address] [place] [address] Feb, Neuroforaminal stenosis of s pine M99.89 ; Essential hypertension I10 ; Mixed hyperlipidemia E78.2 ; Encounter for immunization Z23 and Seasonal allergies J30.2 [facility] [address] [facility] [id number] [address] [place] [address] Jan, Neuroforaminal stenosis of s pine M99.89 [facility] [address] [facility] [id number] [address] [place] [address] Dec, Neuroforaminal stenosis of s pine M99.89 [facility] [address] [facility] [id number] [address] [place] [address] Dec, Neuroforaminal stenosis of s pine M99.89 [facility] [address] [facility] [id number] [address] [place] [address] Nov, [facility] [address] [facility] [id number] [address] [place] [address] Nov, Neuroforaminal stenosis of s pine M99.89 [facility] [address] [facility] [id number] [address] [place] [address] Nov, Acute non-recurrent maxillar y sinusitis J01.00 [facility] [address] [facility] [id number] [address] [place] [address] Oct, Hypokalemia E87.6 [facility] [address] [facility] [id number] [address] [place] [address] Oct, Wasp sting, undetermined int ent, initial encounter T63.464A and Cellulitis of left lower extremity L03.116 [facility] [address] [facility] [id number] [address] [place] [address] Oct, Neuroforaminal stenosis of s pine M99.89 [facility] [address] [facility] [id number] [address] [place] [address] Sep, [facility] [address] [facility] [id number] [address] [place] [address] 24 Sep, 2018 [place] [address] [facility] [id number] [address] [place] [address] 18 Sep, 2018 Routine screening for STI (s exually transmitted infection) Z11.3 [facility] [address] [facility] [id number] [address] [place] [address] 14 Sep, 2018 Routine screening for STI (s exually transmitted infection) Z11.3 ; Well woman exam with routine gynecological exam Z01.419 and Breast cancer screening Z12.39 [place] [address] [id number] [address] [place] [address] 10 Sep, 2018 Neuroforaminal stenosis of s pine M99.89 [place] [address] [facility] [id number] [address] [place] [address] August, Neuroforaminal stenosis of s pine M99.89 [place] [address] [place] [id number] [address] [place] [address] August, Neuroforaminal stenosis of s pine M99.89 ; Chronic pain due to trauma G89.21 and Mixed hyperlipidemia E78.2 [place] [address] [facility] [id number] [address] [place] [address] Jul, Viral upper respiratory illn ess J06.9 and Acute non-recurrent frontal sinusitis J01.10 [place] [address] [place] [id number] [address] [place] [address] Jul, Congestion of nasal sinus R0 9.81 [place] [address] [facility] [id number] [address] [place] [address] Jul, Neuroforaminal stenosis of s pine M99.89 and Essential hypertension I10 [place] [address] [facility] [id number] [address] [place] [address] May, Neuroforaminal stenosis of s pine M99.89 [place] [address] [facility] [id number] [address] [place] [address] May, [place] [address] [id number] [address] [place] [address] May, Congestion of nasal sinus R0 9.81 [facility] [address] [id number] [address] [place] [address] May, [facility] [address] [id number] [address] [place] [address] Apr, Neuroforaminal stenosis of s pine M99.89 [place] [address] [id number] [address] [place] [address] Apr, Neuroforaminal stenosis of s pine M99.89 and Chronic pain due to trauma G89.21 [place] [address] [id number] [address] [place] [address] Mar, UTI (urinary tract infection ) N39.0 [place] [address] [id number] [address] [place] [address] Mar, Vertigo R42 [place] [address] [id number] [address] [place] [address] Mar, Neuroforaminal stenosis of s pine M99.89 [place] [address] [id number] [address] [place] [address] Feb, Extensor tendon disruption M 67.89 [place] [address] [id number] [address] [place] [address] Feb, Neuroforaminal stenosis of s pine M99.89 and High risk medication use Z79.899 [place] [address] [facility] [id number] [address] [place] [address] Jan, Hypokalemia E87.6 [place] [address] [facility] [id number] [address] [place] [address] Jan, Flank pain R10.9 and Acute r ight-sided low back pain without sciatica M54.5 [place] [address] [id number] [address] [place] [address] Jan, Hypokalemia E87.6 [place] [address] [address] Jan, [place] [address] [address] Jan, URI, acute J06.9 [place] [address] [address] Jan, Neuroforaminal stenosis of s jose M99.89 [place] [address] [address] 13 Dec, 2017 Lateral epicondylitis, right elbow M77.11 [place] [address] [address] 11 Dec, 2017 Allergic rhinitis due to monica rosalina, unspecified seasonality J30.1 and Allergic conjunctivitis of both eyes H10.13 [place] [address] [address] 10 Dec, 2017 Neuroforaminal stenosis of s pine M99.89 [place] [address] [address] Dec, Mixed hyperlipidemia E78.2 [place] [address] [address] 05 Dec, 2017 Abnormal glucose R73.09 ; Ab normal renal ultrasound R93.429 ; Dysuria R30.0 ; Cystitis without hematuria N30.90 ; Hypokalemia E87.6 ; Mixed hyperlipidemia E78.2 and Hematuria, unspecified type R31.9 [place] [address] [address] Nov, Hypokalemia E87.6 ; Mixed hy perlipidemia E78.2 and Hematuria, unspecified type R31.9 [place] [address] [address] Nov, [place] [address] [id number] [address] [place] [address] Nov, Hypokalemia E87.6 [place] [address] [id number] [address] [place] [address] Nov, [place] [address] [id number] [address] [place] [address] Nov, Abnormal renal ultrasound R9 3.429 [place] [address] [id number] [address] [place] [address] Nov, Abnormal renal ultrasound R9 3.429 [place] [address] [id number] [address] [place] [address] Nov, Hematuria, unspecified type R31.9 and Neuroforaminal stenosis of spine M99.89 [place] [address] [facility] [id number] [address] [place] [address] Nov, Dysuria R30.0 [place] [address] [id number] [address] [place] [address] Oct, Lateral epicondylitis, right elbow M77.11 [place] [address] [id number] [address] [place] [address] Oct, Neuroforaminal stenosis of s pine M99.89 ; Visit for TB skin test Z11.1 and Essential hypertension I10 [place] [address] [id number] [address] [place] [address] Oct, [place] [address] [id number] [address] [place] [address] Oct, Neuroforaminal stenosis of s pine M99.89 [place] [address] [facility] [id number] [address] [place] [address] Oct, Visit for TB skin test Z11.1 [place] [address] [facility] [id number] [address] [place] [address] 05 Oct, 2017 Cystitis without hematuria N 30.90 [place] [address] [id number] [address] [place] [address] 28 Sep, 2017 Screening breast examination Z12.39 [place] [address] [id number] [address] [place] [address] 26 Sep, 2017 Dysuria R30.0 and Cystitis w ithout hematuria N30.90 [place] [address] [id number] [address] [place] [address] 14 Sep, 2017 Essential hypertension I10 a nd 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 [place] [address] [id number] [address] [place] [address] 04 Sep, 2017 Abnormal glucose R73.09 [place] [address] [facility] [id number] [address] [place] [address] August, Lateral epicondylitis, right elbow M77.11 [place] [address] [facility] [id number] [address] [place] [address] August, Screen for STD (sexually tra nsmitted disease) Z11.3 [place] [address] [facility] [id number] [address] [place] [address] August, Neuroforaminal stenosis of s pine M99.89 ; Mixed hyperlipidemia E78.2 ; Elevated fasting glucose R73.01 ; Screening mammogram, encounter for Z12.31 and Encounter for well woman exam without gynecological exam Z00.00 [place] [address] [id number] [address] [place] [address] August, Neuroforaminal stenosis of s pine M99.89 [place] [address] [facility] [id number] [address] [place] [address] August, Essential hypertension I10 ; Hypokalemia E87.6 and Mixed hyperlipidemia E78.2 [place] [address] [id number] [address] [place] [address] Jul, [place] [address] [facility] [id number] [address] [place] [address] Jul, Neuroforaminal stenosis of s jose M99.89 [facility] [address] [id number] [address] [place] [address] Jul, Lateral epicondylitis, right elbow M77.11 [facility] [address] [id number] [address] [place] [address] Jul, [facility] [address] [facility] [id number] [address] [place] [address] Jun, High ankle sprain of right l ower extremity, initial encounter S93.431A [place] [address] [id number] [address] [place] [address] Jun, Essential hypertension I10 [place] [address] [id number] [address] [place] [address] Jun, [place] [address] [id number] [address] [place] [address] Jun, [place] [address] [id number] [address] [place] [address] Jun, Neuroforaminal stenosis of s jose M99.89 [place] [address] [id number] [address] [place] [address] Jun, Pain of right upper extremit y M79.601 and Essential hypertension I10 [place] [address] [id number] [address] [place] [address] Jun, [place] [address] [facility] [id number] [address] [place] [address] Jun, Dysuria R30.0 ; Acute cystit is with hematuria N30.01 and Screen for STD (sexually transmitted disease) Z11.3 [place] [address] [id number] [address] [place] [address] May, Chronic pain due to trauma G 89.21 [place] [address] [facility] [id number] [address] [place] [address] May, Essential hypertension I10 [place] [id number] [place] [address] May, Neuroforaminal stenosis of ayla garcia M99.89 [place] [address] [place] [id number] [address] [place] [address] Apr, Allergic reaction, initial e ncounter T78.40XA [place] [address] [address] Apr, Low back pain, unspecified b ack pain laterality, unspecified chronicity, with sciatica presence unspecified M54.5 ; Acute cystitis with hematuria N30.01 ; 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 ; Bilateral acute serous otitis media, recurrence not specified H65.03 ; Mixed hyperlipidemia E78.2 ; Essential hypertension I10 ; Immunization counseling Z71.89 and Encounter for immunization Z23 [place] [address] [address] Apr, Neck pain M54.2 [place] [address] [place] [id number] [address] [place] [address] Mar, Neuroforaminal stenosis of ayla garcia M99.89 [place] [address] [place] [id number] [address] [place] [address] Mar, Pharyngitis due to other org anism J02.8 [place] [address] [place] [id number] [address] [place] [address] Feb, Neuroforaminal stenosis of ayla garcia M99.89 [place] [address] [place] [id number] [address] [place] [address] 08 Feb, 2017 UTI (urinary tract infection ) N39.0 [place] [address] [place] [id number] [address] [place] [address] 07 Feb, 2017 Recent urinary tract infecti on Z87.440 ; 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 ; Neck pain M54.2 ; Chronic pain due to trauma G89.21 and Recurrent UTI N39.0 [facility] [address] [id number] [address] [place] [address] Feb, [facility] [address] [id number] [address] [place] [address] Jan, Neuroforaminal stenosis of s pine M99.89 [facility] [address] [id number] [address] [place] [address] Dec, Neuroforaminal stenosis of s pine M99.89 [facility] [address] [id number] [address] [place] [address] 18 Dec, 2016 Acute seasonal allergic rhin itis due to pollen J30.1 [place] [address] [id number] [address] [place] [address] 08 Dec, 2016 [place] [address] [id number] [address] [place] [address] 08 Dec, 2016 Acute seasonal allergic rhin itis, unspecified trigger J30.2 ; Allergic conjunctivitis of both eyes H10.13 and Dysfunction of both eustachian tubes H69.83 [place] [address] [id number] [address] [place] [address] Dec, [place] [address] [id number] [address] [place] [address] Dec, Nevus D22.9 [facility] [address] [id number] [address] [place] [address] Nov, Chronic pain due to trauma G 89.21 and Neuroforaminal stenosis of spine M99.89 [facility] [address] [id number] [address] [place] [address] Nov, Neuroforaminal stenosis of s pine M99.89 ; Essential hypertension I10 ; Mixed hyperlipidemia E78.2 ; Hypokalemia E87.6 ; Neck pain M54.2 and Nevus D22.9 [facility] [address] [id number] [address] [place] [address] Oct, Neuroforaminal stenosis of s pine M99.89 [facility] [address] [id number] [address] [place] [address] Sep, Neuroforaminal stenosis of s pine M99.89 [facility] [address] [id number] [address] [place] [address] Sep, [facility] [address] [id number] [address] [place] [address] August, [facility] [address] [id number] [address] [place] [address] August, Neck pain M54.2 and Neurofor aminal stenosis of spine M99.89 [facility] [address] [id number] [address] [place] [id number] August, Routine gynecological examin ation Z01.419 and Screening breast examination Z12.39 [facility] [address] [id number] [address] [place] [phone] Jul, [facility] [address] [id number] [address] [place] [id number] Jul, [facility] [address] [id number] [address] [place] [id number] Jul, Neuroforaminal stenosis of s pine M99.89 [facility] [address] [id number] [address] [place] [id number] Jul, [facility] [address] [id number] [address] [place] [id number] Jul, Neuroforaminal stenosis of l umbar 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 [facility] [address] [id number] [address] [place] [id number] Jul, [facility] [address] [id number] [address] [place] [id number] Jul, [facility] [address] [id number] [address] [place] [phone] Jun, Neuroforaminal stenosis of ayla garcia M99.89 [place] [address] [facility] [id number] [address] [place] [id number] Jun, Uterine leiomyoma, unspecifi ed location D25.9 and Allergic reaction caused by a drug, initial encounter T78.40XA [place] [address] [address] [facility] [id number] [address] [place] [id number] Jun, [place] [address] [address] [facility] [id number] [address] [place] [id number] May, UTI symptoms R39.9 and Pain of right sacroiliac joint M53.3 [place] [id number] [address] [place] [id number] May, Neuroforaminal stenosis of ayla garcia M99.89 [place] [address] [place] [id number] [address] [place] [id number] May, [place] [address] [place] [id number] [address] [place] [id number] May, Acute mucoid otitis media of left ear H65.112 and Acute non- recurrent maxillary sinusitis J01.00 [place] [id number] [address] [place] [phone] May, Acute bacterial conjunctivit is of both eyes H10.33 ; Left arm pain M79.602 and Hypokalemia E87.6 [place] [address] [place] [id number] [address] [place] [id number] Apr, [place] [address] [place] [id number] [address] [place] [id number] Apr, Neuroforaminal stenosis of ayla garcia M99.89 ; Neck pain M54.2 ; Chronic pain due to trauma G89.21 ; Mixed hyperlipidemia E78.2 ; Essential hypertension I10 and Hypokalemia E87.6 [place] [address] [place] [id number] [address] [place] [id number] Mar, Oral candidiasis B37.0 ; Nathaniel roforaminal stenosis of spine M99.89 ; Neck pain M54.2 and Chronic pain due to trauma G89.21 [facility] [address] [id number] [address] [place] [phone] Feb, [facility] [address] [id number] [address] [place] [id number] Feb, [facility] [address] [facility] [id number] [address] [place] [address] Feb, UTI (urinary tract infection ) N39.0 [facility] [address] [facility] [id number] [address] [place] [address] Feb, Dysuria R30.0 [facility] [address] [facility] [id number] [address] [place] [address] Feb, Dysuria R30.0 [facility] [address] [facility] [id number] [address] [place] [address] Feb, Neuroforaminal stenosis of s pine M99.89 ; Neck pain M54.2 ; Essential hypertension I10 ; Chronic pain due to trauma G89.21 ; Dysuria R30.0 ; Abnormal MRI, shoulder R93.8 and Acute cystitis without hematuria N30.00 [facility] [address] [id number] [address] [place] [address] Jan, [facility] [address] [facility] [id number] [address] [place] [address] Jan, [facility] [address] [facility] [id number] [address] [place] [address] Jan, [facility] [address] [facility] [id number] [address] [place] [address] Jan, Abnormal MRI R93.8 [facility] [address] [facility] [id number] [address] [place] [address] Dec, [facility] [address] [id number] [address] [place] [id number] 15 Dec, 2015 Acute pain of left shoulder M25.512 [facility] [address] [id number] [address] [place] [address] 09 Dec, 2015 [facility] [address] [id number] [address] [place] [address] 08 Dec, 2015 [facility] [address] [id number] [address] [place] [address] 07 Dec, 2015 Acute pain of left shoulder M25.512 [facility] [address] [id number] [address] [place] [address] 23 Nov, 2015 [facility] [address] [id number] [address] [place] [address] 16 Nov, 2015 Neuroforaminal stenosis of s pine M99.89 ; Neck pain M54.2 ; Abnormal mammogram R92.8 ; Essential hypertension I10 and Chronic pain due to trauma G89.21 [facility] [address] [id number] [address] [place] [address] Nov, [facility] [address] [id number] [address] [place] [address] Oct, Acute stress disorder F43.0 [facility] [address] [id number] [address] [place] [address] Oct, [facility] [address] [id number] [address] [place] [address] Oct, [facility] [address] [id number] [address] [place] [address] Oct, [facility] [address] [id number] [address] [place] [address] Sep, [facility] [address] [id number] [address] [place] [address] August, [facility] [address] [id number] [address] [place] [address] Jul, Neuroforaminal stenosis of s pine M99.89 ; Neck pain M54.2 ; Abnormal mammogram R92.8 and Essential hypertension I10 [facility] [address] [id number] [address] [place] [address] Jul, [facility] [address] [id number] [address] [place] [address] Jul, [facility] [address] [id number] [address] [place] [address] Jul, Abnormal mammogram R92.8 [facility] [address] [id number] [address] [place] [address] Jul, [facility] [address] [facility] [id number] [address] [place] [address] Jul, UTI (urinary tract infection ) N39.0 [facility] [address] [id number] [address] [place] [address] Jul, Dysuria R30.0 [facility] [address] [id number] [address] [place] [address] Jun, [facility] [address] [id number] [address] [place] [address] Jun, [facility] [address] [id number] [address] [place] [address] Jun, Hypokalemia E87.6 and Hematu martina R31.9 [facility] [address] [id number] [address] [place] [address] Jun, Hypokalemia E87.6 [facility] [address] [id number] [address] [place] [address] Jun, [facility] [address] [id number] [address] [place] [address] Jun, Hypokalemia E87.6 [facility] [address] [id number] [address] [place] [address] Jun, Hypokalemia E87.6 [facility] [address] [facility] [id number] [address] [place] [address] Jun, Neuroforaminal stenosis of s pine M99.89 ; Hypokalemia E87.6 ; Neck pain M54.2 ; Essential hypertension I10 ; Mixed hyperlipidemia E78.2 and Screening breast examination Z12.39 [facility] [address] [address] Jun, Dysuria R30.0 ; UTI (urinary tract infection) N39.0 and Hematuria R31.9 [facility] [address] [place] [id number] [place] [address] May, [facility] [address] [place] [id number] [place] [address] May, High risk sexual behavior Z7 2.51 ; Hypokalemia E87.6 ; Neuroforaminal stenosis of spine M99.89 ; Neck pain M54.2 ; Essential hypertension I10 ; Mixed hyperlipidemia E78.2 ; STD exposure Z20.2 and Concern about STD in female without diagnosis Z71.1 [facility] [address] [place] [id number] [address] [place] [address] 16 May, 2015 Neuroforaminal stenosis of s pine M99.89 ; Neck pain M54.2 ; Hypokalemia E87.6 ; Essential hypertension I10 and Mixed hyperlipidemia E78.2 [facility] [address] [place] [id number] [address] [place] [address] May, [facility] [address] [facility] [id number] [address] [place] [address] 08 May, 2015 High risk sexual behavior Z7 2.51 ; STD exposure Z20.2 and Concern about STD in female without diagnosis Z71.1 [facility] [address] [place] [id number] [address] [place] [address] May, [facility] [address] [address] Apr, Neuroforaminal stenosis of s jose M99.89 ; Mixed hyperlipidemia E78.2 ; Essential hypertension I10 and Hypokalemia E87.6 [place] [address] [address] Mar, [facility] [address] [address] Mar, Hypokalemia E87.6 [facility] [address] [address] Mar, Neuroforaminal stenosis of s jose M99.89 ; Mixed hyperlipidemia E78.2 ; Neck pain M54.2 ; Essential hypertension I10 ; Abnormal fasting glucose R73.09 ; Hypokalemia E87.6 and Constipation K59.00 [facility] [address] [address] Feb, Neuroforaminal stenosis of ayla garcia M99.89 ; Mixed hyperlipidemia E78.2 ; Neck pain M54.2 ; Essential hypertension I10 ; Abnormal fasting glucose R73.09 ; Hypokalemia E87.6 and Constipation K59.00 [facility] [address] [address] Feb, Elevated fasting blood sugar R73.01 [facility] [address] [address] Feb, Elevated fasting blood sugar R73.01 [facility] [address] [address] Feb, Hair loss L65.9 [facility] [address] [address] Feb, Sinusitis J32.9 ; Essential hypertension I10 and Hair loss L65.9 [facility] [address] [address] Jan, [facility] [address] [id number] [address] [place] [address] Jan, Essential hypertension I10 ; Neuroforaminal stenosis of spine M99.89 ; Neck pain M54.2 ; Mixed hyperlipidemia E78.2 and Anxiety F41.9 [facility] [address] [id number] [address] [place] [address] Jan, [facility] [address] [id number] [address] [place] [address] Jan, Mixed hyperlipidemia E78.2 ; Essential (primary) hypertension I10 ; Strain of muscle, fascia and tendon at neck level, subsequent encounter S16.1XXD and Tension-type headache, unspecified, not intractable G44.209 [facility] [address] [id number] [address] [place] [address] Dec, Lumbar back pain 724.2 and N euroforaminal stenosis of spine 724.00 [facility] [address] [id number] [address] [place] [address] Nov, [facility] [address] [id number] [address] [place] [address] Nov, Lumbar back pain 724.2 and N euroforaminal stenosis of spine 724.00 [facility] [address] [id number] [address] [place] [address] Nov, Edema 782.3 ; Lumbar back pa in 724.2 ; Essential hypertension, benign 401.1 ; Hyperlipemia 272.4 ; Neuroforaminal stenosis of spine 724.00 and Post-concussion headache 339.20 [facility] [address] [id number] [address] [place] [address] Nov, [facility] [address] [id number] [address] [place] [address] Nov, [facility] [address] [id number] [address] [place] [address] Oct, Essential hypertension, sheridan gn 401.1 [facility] [address] [id number] [address] [place] [address] Oct, Edema 782.3 ; Lumbar back pa in 724.2 ; Essential hypertension, benign 401.1 ; Hyperlipemia 272.4 ; Neuroforaminal stenosis of spine 724.00 and Post-concussion headache 339.20 [facility] [address] [id number] [address] [place] [address] Oct, [facility] [address] [id number] [address] [place] [address] Oct, Edema 782.3 [facility] [address] [id number] [address] [place] [address] Oct, Lumbar back pain 724.2 [facility] [address] [id number] [address] [place] [address] Oct, Cervicalgia 723.1 ; Lumbar b ack pain 724.2 and High risk medication use V58.69 [facility] [address] [id number] [address] [place] [address] Sep, [facility] [address] [id number] [address] [place] [address] Sep, Lumbar strain 847.2 [facility] [address] [id number] [address] [place] [address] August, Edema 782.3 and Eustachian t ube dysfunction 381.81 [facility] [address] [id number] [address] [place] [address] August, [facility] [address] [id number] [address] [place] [address] August, Eustachian tube dysfunction 381.81 [facility] [address] [id number] [address] [place] [address] Jul, Otalgia 388.70 and Otitis me jonathon 382.9 [facility] [place] [address] [id number] [address] [place] [address] 28 Jul, 2014 [facility] [address] [id number] [address] [place] [address], [place] [address] 28 Jul, 2014 [facility] [address] [id number] [address] [place] [address], [place] [address] 28 Jul, 2014 [facility] [address] [id number] [address] [place] [address], [place] [address] 14 Jul, 2014 [facility] [address] [id number] [address] [place] [address], [place] [address] 13 Jul, 2014 [facility] [address] [id number] [address] [place] [address], [place] [address] 27 Jun, 2014 [facility] [address] [id number] [address] [place] [address], [place] [address] 27 Jun, 2014 [facility] [address] [id number] [address] [place] [address], [place] [address] 16 Jun, 2014 [facility] [address] [id number] [address] [place] [address], [place] [address] 26 May, 2014 [facility] [address] [id number] [address] [place] [address], [place] [address] May, [facility] [address] [id number] [address] [place] [address], [place] [address] 23 May, 2014 [facility] [address] [id number] [address] [place] [address], [place] [address] 17 May, 2014 [facility] [address] [id number] [address] [place] [address], [place] [address] 17 May, 2014 [facility] [address] [id number] [address] [place] [address], [place] [address] May, 2014 [facility] [address] [id number] [address] [place] [address], [place] [address] 09 May, 2014 [facility] [address] [id number] [address] [place] [address] 05 May, 2014 [facility] [address] [id number] [address] [place] [address], [place] [address] May, [facility] [address] [id number] [address] [place] [address], [place] [address] May, [facility] [address] [id number] [address] [place] [address], [place] [address] Apr, [facility] [address] [id number] [address] [place] [address], [place] [address] Apr, [facility] [address] [id number] [address] [place] [address], [place] [address] Apr, [facility] [address] [id number] [address] [place] [address], [place] [address] Apr, [facility] [address] [id number] [address] [place] [address], [place] [address] Apr, [facility] [address] [id number] [address] [place] [address], [place] [address] Apr, [facility] [address] [id number] [address] [place] [address], [place] [address] Apr, [facility] [address] [id number] [address] [place] [address], [place] [address] Apr, [facility] [address] [id number] [address] [place] [address], [place] [address] Apr, [facility] [address] [id number] [address] [place] [address], [place] [address] Apr, [facility] [address] [id number] [address] [place] [address], [place] [address] Apr, [facility] [address] [id number] [address] [place] [address], [place] [address] Apr, [facility] [address] [id number] [address] [place] [address], [place] [address] Apr, [facility] [address] [id number] [address] [place] [address] Apr, [facility] [address] [id number] [address] [place] [address], [place] [address] Apr, [facility] [address] [id number] [address] [place] [address], [place] [address] Mar, [facility] [address] [id number] [address] [place] [address], [place] [address] Mar, [facility] [address] [id number] [address] [place] [address], [place] [address] Mar, [facility] [address] [id number] [address] [place] [address], [place] [address] Mar, [facility] [address] [id number] [address] [place] [address], [place] [address] Feb, [facility] [address] [id number] [address] [place] [address], [place] [address] Feb, [facility] [address] [id number] [address] [place] [address], [place] [address] Feb, [facility] [address] [id number] [address] [place] [address] Feb, [facility] [address] [id number] [address] [place] [address] Jan, [facility] [address] [id number] [address] [place] [address] Jan, [facility] [address] [id number] [address] [place] [address] Jan, [facility] [address] [id number] [address] [place] [address] Jan, [facility] [address] [id number] [address] [place] [address] Jan, [facility] [address] [id number] [address] [place] [address], [place] [address] Jan, [facility] [address] [id number] [address] [place] [address], [place] [address] Jan, [facility] [address] [id number] [address] [place] [address], [place] [address] Jan, [facility] [address] [id number] [address] [place] [address], [place] [address] Dec, [facility] [address] [id number] [address] [place] [address], [place] [address] Dec, [facility] [address] [id number] [address] [place] [address], [place] [address] Dec, [facility] [address] [id number] [address] [place] [address], [place] [address] Dec, [facility] [address] [id number] [address] [place] [address], [place] [address] Oct, [facility] [address] [id number] [address] [place] [address], [place] [address] Oct, [facility] [address] [id number] [address] [place] [address], [place] [address] Oct, [facility] [address] [id number] [address] [place] [address], [place] [address] Oct, [facility] [address] [id number] [address] [place] [address], [place] [address] Oct, [facility] [address] [id number] [address] [place] [address], [place] [address] Oct, [facility] [address] [id number] [address] [place] [address], [place] [address] Oct, [facility] [address] [id number] [address] [place] [address], [place] [address] Oct, [facility] [address] [id number] [address] [place] [address], [place] [address] Sep, [facility] [address] [id number] [address] [place] [address], [place] [address] Sep, [facility] [address] [id number] [facility] [place] [address] Sep, [facility] [address] [id number] [facility] [place] [address] Sep, [facility] [address] [id number] [address] [place] [address], [place] [address] Sep, [facility] [address] [id number] [address] [place] [address], [place] [address] Sep, [facility] [address] [id number] [address] [place] [address], [place] [address] Sep, [facility] [address] [id number] [address] [place] [address], [place] [address] Sep, [facility] [address] [id number] [address] [place] [address], [place] [address] Sep, [facility] [address] [id number] [address] [place] [address], [place] [address] Sep, [facility] [address] [id number] [address] [place] [address], [place] [address] August, [facility] [address] [id number] [address] [place] [address], [place] [address] August, [facility] [address] [id number] [address] [place] [address], [place] [address] August, [facility] [address] [id number] [address] [place] [address], [place] [address] August, [facility] [address] [id number] [address] [place] [address], [place] [address] August, [facility] [address] [id number] [address] [place] [address], [place] [address] August, [facility] [address] [id number] [address] [place] [address], [place] [address] August, [facility] [address] [id number] [address] [place] [address], [place] [address] August, [facility] [address] [id number] [address] [place] [address], [place] [address] August, [facility] [address] [id number] [address] [place] [address], [place] [address] August, [facility] [address] [id number] [address] [place] [address], [place] [address] August, [facility] [address] [id number] [address] [place] [address], [place] [address] August, [facility] [address] [id number] [address] [place] [address], [place] [address] Jul, [facility] [address] [id number] [address] [place] [address], [place] [address] Jul, [facility] [address] [id number] [address] [place] [address], [place] [address] Jul, [facility] [address] [id number] [address] [place] [address], [place] [address] Jul, [facility] [address] [id number] [address] [place] [address], [place] [address] Jul, [facility] [address] [id number] [address] [place] [address], [place] [address] Jul, [facility] [address] [id number] [address] [place] [address], [place] [address] Jun, [facility] [address] [id number] [address] [place] [address], [place] [address] Jun, [facility] [address] [id number] [address] [place] [address], [place] [address] May, [facility] [address] [id number] [address] [place] [address], [place] [address] May, [facility] [address] [id number] [address] [place] [address], [place] [address] Apr, [facility] [address] [id number] [address] [place] [address], [place] [address] Apr, [facility] [address] [id number] [address] [place] [address], [place] [address] Apr, [facility] [address] [id number] [address] [place] [address], [place] [address] Apr, [facility] [address] [id number] [address] [place] [address], [place] [address] Apr, [facility] [address] [id number] [address] [place] [address], [place] [address] Apr, [facility] [address] [id number] [address] [place] [address], [place] [address] Apr, [facility] [address] [id number] [address] [place] [address], [place] [address] Apr, [facility] [address] [id number] [address] [place] [address], [place] [address] Apr, [facility] [address] [id number] [address] [place] [address], [place] [address] Apr, [facility] [address] [id number] [address] [place] [address], [place] [address] Apr, [facility] [address] [id number] [address] [place] [address], [place] [address] Apr, [facility] [address] [id number] [address] [place] [address], [place] [address] Apr, [facility] [address] [id number] [address] [place] [address], [place] [address] Mar, [facility] [address] [id number] [address] [place] [address], [place] [address] Mar, [facility] [address] [id number] [address] [place] [address], [place] [address] Mar, [facility] [address] [id number] [address] [place] [id number] Mar, [facility] [address] [id number] [address] [place] [address], [place] [address] Feb, [facility] [address] [id number] [address] [place] [address], [place] [address] Feb, [facility] [address] [id number] [address] [place] [id number] Feb, [facility] [address] [id number] [address] [place] [id number] Feb, [facility] [address] [id number] [address] [place] [address], [place] [address] Jan, [facility] [address] [id number] [address] [place] [id number] 14 Jan, 2013 [facility] [address] [id number] [address] [place] [id number] Jan, [facility] [address] [id number] [address] [place] [id number] Jan, [facility] [address] [id number] [address] [place] [id number] Jan, [facility] [address] [id number] [place] [id number] Jan, [facility] [address] [id number] [address] [place] [id number] Jan, [facility] [address] [id number] [address] [place] [id number] Jan, [facility] [address] [id number] [address] [place] [address], [place] [address] Jan, [facility] [address] [id number] [address] [place] [address] 26 Dec, 2012 [facility] [address] [id number] [address] [place] [address], [place] [address] 16 Dec, 2012 [facility] [address] [id number] [address] [place] [address], [place] [address] 16 Dec, 2012 [facility] [address] [id number] [address] [place] [address], [place] [address] Dec, [facility] [address] [id number] [address] [place] [address], [place] [address] Nov, [facility] [address] [id number] [address] [place] [address], [place] [address] Nov, [facility] [address] [id number] [address] [place] [address], [place] [address] Nov, [facility] [address] [id number] [address] [place] [address], [place] [address] Nov, [facility] [address] [id number] [address] [place] [address], [place] [address] Oct, [facility] [address] [id number] [address] [place] [address], [place] [address] Sep, [facility] [address] [id number] [address] [place] [address], [place] [address] August, [facility] [address] [id number] [address] [place] [address], [place] [address] August, [facility] [address] [id number] [address] [place] [address], [place] [address] August, [facility] [address] [id number] [address] [place] [address], [place] [address] August, [facility] [address] [id number] [address] [place] [address], [place] [address] August, [facility] [address] [id number] [address] [place] [address], [place] [address] August, [facility] [address] [id number] [address] [place] [address], [place] [address] August, [facility] [address] [id number] [address] [place] [address], [place] [address] August, [facility] [address] [id number] [address] [place] [address], [place] [address] August, [facility] [address] [id number] [address] [place] [address], [place] [address] August, [facility] [address] [id number] [address] [place] [address], [place] [address] August, [facility] [address] [id number] [address] [place] [address], [place] [address] August, [facility] [address] [id number] [address] [place] [address], [place] [address] Jul, [facility] [address] [id number] [address] [place] [address], [place] [address] Jul, [facility] [address] [id number] [address] [place] [address], [place] [address] Jul, [facility] [address] [id number] [address] [place] [address], [place] [address] Jul, [facility] [address] [id number] [address] [place] [address], [place] [address] Jul, [facility] [address] [id number] [address] [place] [address], [place] [address] Jul, [facility] [address] [id number] [address] [place] [address], [place] [address] Jul, [facility] [address] [id number] [address] [place] [address], [place] [address] Jul, [facility] [address] [id number] [address] [place] [address], [place] [address] Jul, [facility] [address] [id number] [address] [place] [address], [place] [address] Jul, [facility] [address] [id number] [address] [place] [address], [place] [address] Jul, [facility] [address] [id number] [address] [place] [address], [place] [address] Jun, [facility] [address] [id number] [address] [place] [address], [place] [address] Jun, [facility] [address] [id number] [address] [place] [address], [place] [address] Jun, [facility] [address] [id number] [address] [place] [address], [place] [address] Jun, [facility] [address] [id number] [address] [place] [address], [place] [address] May, [facility] [address] [id number] [address] [place] [address], [place] [address] May, [facility] [address] [id number] [address] [place] [address], [place] [address] 05 May, 2012 [facility] [address] [id number] [address] [place] [address], [place] [address] May, [facility] [address] [id number] [address] [place] [address], [place] [address] May, [facility] [address] [id number] [address] [place] [address], [place] [address] May, [facility] [address] [id number] [address] [place] [address], [place] [address] Apr, [facility] [address] [id number] [address] [place] [address], [place] [address] Apr, [facility] [address] [id number] [address] [place] [address], [place] [address] 30 Apr, 2012 [facility] [address] [id number] [address] [place] [address], [place] [address] Apr, [facility] [address] [id number] [address] [place] [address], [place] [address] Mar, [facility] [address] [id number] [address] [place] [address], [place] [address] Mar, [facility] [address] [id number] [address] [place] [address], [place] [address] 14 Mar, 2012 [facility] [address] [id number] [address] [place] [address], [place] [address] 14 Mar, 2012 [facility] [address] [id number] [address] [place] [address], [place] [address] Mar, [facility] [address] [id number] [address] [place] [address], [place] [address] Mar, [facility] [address] [id number] [address] [place] [address], [place] [address] Mar, [facility] [address] [id number] [address] [place] [address], [place] [address] Feb, [facility] [address] [id number] [address] [place] [address], [place] [address] Feb, [facility] [address] [id number] [address] [place] [address], [place] [address] Feb, [facility] [address] [id number] [address] [place] [address], [place] [address] Feb, [facility] [address] [id number] [address] [place] [address] Jan, [facility] [address] [id number] [address] [place] [address] Jan, [facility] [address] [id number] [address] [place] [address] Jan, [facility] [address] [id number] [address] [place] [address], [place] [address] Jan, [facility] [address] [id number] [address] [place] [address] Jan, [facility] [address] [id number] [address] [place] [address] Jan, [facility] [address] [id number] [address] [place] [phone] Dec, [facility] [address] [id number] [address] [place] [address], [place] [address] Dec, [facility] [address] [id number] [address] [place] [address], [place] [address] Nov, [facility] [address] [id number] [address] [place] [address], [place] [address] Sep, [facility] [address] [id number] [address] [place] [address], [place] [address] August, [facility] [address] [id number] [address] [place] [address], [place] [address] August, [facility] [address] [id number] [address] [place] [address], [place] [address] August, [facility] [address] [id number] [address] [place] [address], [place] [address] August, [facility] [address] [id number] [address] [place] [address], [place] [address] August, [facility] [address] [id number] [address] [place] [address], [place] [address] Jun, [facility] [address] [id number] [address] [place] [address], [place] [address] Jun, [facility] [address] [id number] [address] [place] [address], [place] [address] Apr, [facility] [address] [id number] [address] [place] [address], [place] [address] Apr, [facility] [address] [id number] [address] [place] [address], [place] [address] Mar, [facility] [address] [id number] [address] [place] [address], [place] [address] Feb, [facility] [address] [id number] [address] [place] [address], [place] [address] Feb, [facility] [address] [id number] [address] [place] [id number] 14 Feb, 2011 [facility] [address] [id number] [address] [place] [address] 17 Jan, 2011 [facility] [address] [id number] [address] [place] [address] 15 Jan, 2011 [facility] [address] [id number] [address] [place] [id number] Jan, [facility] [address] [id number] [address] [place] [id number] Jan, [facility] [address] [id number] [address] [place] [address] May, [facility] [address] [id number] [address] [place] [address] Mar, [facility] [address] [id number] [address] [place] [address] Oct, [facility] [address] [id number] [address] [place] [address] Sep, [facility] [address] [id number] [address] [place] [address] Mar, [facility] [address] [id number] [address] [place] [address] Jan, [facility] [address] [id number] [address] [place] [address] Jan, [facility] [address] [id number] [address] [place] [address] May, IMMUNIZATIONS No Known Immunizations SOCIAL HISTORY [...] squamous atypia (no definite dyplasia). Performed at [facility] Dr. Joy. Medical History Acute [...]
--- OUTSIDE RECORDS SUMMARY | 2019-11-23 05:45 | XMS REPORT ---
Author Author Liana Coe Doctor Organization [facility] Address Unknown Phone Unavailable Care Team Providers Care Spray Mixer Name Role Phone Migration, Doctor Unavailable Unavailable PROBLEMS Type Condition ICD9-CM Code [id number] Code Onset Dates Condition S tatus SNOMED Code Problem Hematuria, unspecified type R31.9 Ac tive 96196757 Problem Abnormal glucose R73.09 Active 102 679275 Problem Anxiety F41.9 Active 85355356 Problem Neck pain M54.2 Active 89047254 Problem Essential hypertension I10 Active 77762797 Problem Rhinosinusitis J32.9 Active 64076 4004 Problem Neuroforaminal stenosis of spine M99.89 Active [id number] Problem Other chronic pain G89.29 Active 8 4148484 Problem Abnormal renal ultrasound R93.429 Acti ve [id number] Problem Mixed hyperlipidemia E78.2 Active 85140491 Problem Hypokalemia E87.6 Active 52730611 Problem Chronic pain due to trauma G89.21 Act juanis 455632313 Problem Seasonal allergies J30.2 Active 4 [id number] ALLERGIES No Information ENCOUNTERS Encounter Location Date Diagnosis [facility] [place] [address] [facility] [id number] [address] [place] [address] Oct, [facility] [place] [address] [facility] [id number] [address] [place] [id number] Sep, [facility] [place] [address] [facility] [id number] [address] [place] [address] Sep, Neuroforaminal stenosis of s pine M99.89 [facility] [address] [facility] [id number] [address] [place] [id number] Sep, Encounter for laboratory luisa ting for COVID-19 virus V73.89 [facility] [place] [address] [facility] [id number] [address] [place] [address] August, Neuroforaminal stenosis of s pine M99.89 [facility] [place] [address] [id number] [address] [place] [address] August, Acute bacterial conjunctivit is of right eye H10.31 [facility] [address] [id number] [address] [place] [address] August, Low back pain M54.5 ; Other chronic pain G89.29 and Dysuria R30.0 [facility] [place] [address] [id number] [address] [place] [id number] August, [facility] [place] [address] [id number] [address] [place] [id number] Jul, Neuroforaminal stenosis of ayla garcia M99.89 [facility] [place] [address] [id number] [address] [place] [address] Jul, Allergic conjunctivitis of b oth eyes H10.13 [facility] [place] [address] [id number] [address] [place] [address] Jun, Hypokalemia E87.6 [facility] [place] [address] [id number] [address] [place] [address] Jun, [place] [address] [id number] [address] [place] [address] Jun, Neuroforaminal stenosis of ayla garcia M99.89 [facility] [place] [address] [id number] [address] [place] [address] Jun, Lateral epicondylitis, left elbow M77.12 and Medial epicondylitis, left elbow M77.02 [facility] [place] [address] [id number] [address] [place] [address] Jun, Foraminal stenosis of lumbar region M48.061 ; Segmental dysfunction of thoracic region M99.02 ; Segmental dysfunction of lumbar region M99.03 and Segmental dysfunction of sacral region M99.04 [facility] [place] [address] [id number] [address] [place] [address] May, Left elbow pain M25.522 [facility] [place] [address] [id number] [address] [place] [id number] May, [facility] [place] [address] [id number] [address] [place] [address] May, Left elbow pain M25.522 [facility] [place] [address] [id number] [address] [place] [address] May, Neuroforaminal stenosis of s pine M99.89 [facility] [place] [address] [id number] [address] [place] [address] May, Rhinosinusitis J32.9 ; Left elbow pain M25.522 and Neck pain M54.2 [facility] [place] [address] [id number] [address] [place] [id number] 14 May, 2019 Lateral epicondylitis of lef t elbow M77.12 [facility] [place] [address] [id number] [address] [place] [id number] Apr, Neuroforaminal stenosis of s pine M99.89 [facility] [place] [address] [id number] [address] [place] [address] Apr, Essential hypertension I10 a nd Mixed hyperlipidemia E78.2 [facility] [place] [address] [id number] [address] [place] [address] Mar, Neuroforaminal stenosis of s pine M99.89 [facility] [place] [address] [id number] [address] [place] [address] Mar, Epicondylitis, lateral, left M77.12 [facility] [place] [address] [id number] [address] [place] [id number] Mar, [facility] [place] [address] [id number] [address] [place] [address] Mar, Neuroforaminal stenosis of s pine M99.89 [facility] [place] [address] [id number] [address] [place] [id number] Feb, Neuroforaminal stenosis of s pine M99.89 ; Essential hypertension I10 ; Mixed hyperlipidemia E78.2 ; Encounter for immunization Z23 and Seasonal allergies J30.2 [facility] [place] [address] [facility] [id number] [address] [place] [address] Jan, Neuroforaminal stenosis of s pine M99.89 [facility] [place] [address] [facility] [id number] [address] [place] [address] Dec, Neuroforaminal stenosis of s pine M99.89 [facility] [place] [address] [facility] [id number] [address] [place] [address] Dec, Neuroforaminal stenosis of s pine M99.89 [facility] [place] [address] [facility] [id number] [address] [place] [phone] Nov, [facility] [place] [address] [facility] [id number] [address] [place] [address] Nov, Neuroforaminal stenosis of s pine M99.89 [facility] [place] [address] [facility] [id number] [address] [place] [address] Nov, Acute non-recurrent maxillar y sinusitis J01.00 [facility] [place] [address] [facility] [id number] [address] [place] [address] Oct, Hypokalemia E87.6 [facility] [address] [facility] [id number] [address] [place] [id number] Oct, Wasp sting, undetermined int ent, initial encounter T63.464A and Cellulitis of left lower extremity L03.116 [facility] [place] [address] [facility] [id number] [address] [place] [id number] Oct, Neuroforaminal stenosis of s pine M99.89 [facility] [place] [address] [facility] [id number] [address] [place] [phone] Sep, [facility] [place] [address] [facility] [id number] [address] [place] [id number] 24 Sep, 2018 [place] [address] [facility] [id number] [address] [place] [id number] 18 Sep, 2018 Routine screening for STI (s exually transmitted infection) Z11.3 [place] [address] [facility] [id number] [address] [place] [id number] 14 Sep, 2018 Routine screening for STI (s exually transmitted infection) Z11.3 ; Well woman exam with routine gynecological exam Z01.419 and Breast cancer screening Z12.39 [place] [address] [id number] [address] [place] [phone] 10 Sep, 2018 Neuroforaminal stenosis of s pine M99.89 [place] [address] [facility] [id number] [address] [place] [address] August, Neuroforaminal stenosis of s pine M99.89 [place] [address] [place] [id number] [address] [place] [address] August, Neuroforaminal stenosis of s pine M99.89 ; Chronic pain due to trauma G89.21 and Mixed hyperlipidemia E78.2 [place] [address] [facility] [id number] [address] [place] [address] Jul, Viral upper respiratory illn ess J06.9 and Acute non-recurrent frontal sinusitis J01.10 [place] [address] [place] [id number] [address] [place] [address] Jul, Congestion of nasal sinus R0 9.81 [place] [address] [facility] [id number] [address] [place] [id number] Jul, Neuroforaminal stenosis of s pine M99.89 and Essential hypertension I10 [place] [address] [facility] [id number] [address] [place] [address] May, Neuroforaminal stenosis of s pine M99.89 [place] [address] [facility] [id number] [address] [place] [phone] May, [place] [address] [id number] [address] [place] [phone] May, Congestion of nasal sinus R0 9.81 [facility] [place] [address] [id number] [address] [place] [id number] May, [facility] [place] [address] [id number] [address] [place] [address] Apr, Neuroforaminal stenosis of s pine M99.89 [place] [address] [id number] [address] [place] [address] Apr, Neuroforaminal stenosis of s pine M99.89 and Chronic pain due to trauma G89.21 [place] [address] [id number] [address] [place] [address] Mar, UTI (urinary tract infection ) N39.0 [place] [address] [id number] [address] [place] [id number] Mar, Vertigo R42 [place] [address] [id number] [address] [place] [address] Mar, Neuroforaminal stenosis of s pine M99.89 [place] [address] [id number] [address] [place] [address] Feb, Extensor tendon disruption M 67.89 [place] [address] [id number] [address] [place] [address] Feb, Neuroforaminal stenosis of s pine M99.89 and High risk medication use Z79.899 [place] [address] [facility] [id number] [address] [place] [phone] Jan, Hypokalemia E87.6 [place] [address] [facility] [id number] [address] [place] [address] Jan, Flank pain R10.9 and Acute r ight-sided low back pain without sciatica M54.5 [place] [address] [id number] [address] [place] [address] Jan, Hypokalemia E87.6 [place] [address] [address] Jan, [place] [address] [id number] Jan, URI, acute J06.9 [place] [address] [phone] Jan, Neuroforaminal stenosis of s jose M99.89 [place] [address] [address] 13 Dec, 2017 Lateral epicondylitis, right elbow M77.11 [place] [address] [phone] 11 Dec, 2017 Allergic rhinitis due to monica rosalina, unspecified seasonality J30.1 and Allergic conjunctivitis of both eyes H10.13 [place] [address] [phone] 10 Dec, 2017 Neuroforaminal stenosis of s pine M99.89 [place] [address] [address] Dec, Mixed hyperlipidemia E78.2 [place] [address] [id number] 05 Dec, 2017 Abnormal glucose R73.09 ; Ab normal renal ultrasound R93.429 ; Dysuria R30.0 ; Cystitis without hematuria N30.90 ; Hypokalemia E87.6 ; Mixed hyperlipidemia E78.2 and Hematuria, unspecified type R31.9 [place] [address] [address] Nov, Hypokalemia E87.6 ; Mixed hy perlipidemia E78.2 and Hematuria, unspecified type R31.9 [place] [address] [phone] Nov, [place] [address] [id number] [address] [place] [address] Nov, Hypokalemia E87.6 [place] [address] [id number] [address] [place] [phone] Nov, [place] [address] [id number] [address] [place] [address] Nov, Abnormal renal ultrasound R9 3.429 [place] [address] [id number] [address] [place] [address] Nov, Abnormal renal ultrasound R9 3.429 [place] [address] [id number] [address] [place] [address] Nov, Hematuria, unspecified type R31.9 and Neuroforaminal stenosis of spine M99.89 [place] [address] [facility] [id number] [address] [place] [address] Nov, Dysuria R30.0 [place] [address] [id number] [address] [place] [address] Oct, Lateral epicondylitis, right elbow M77.11 [place] [address] [id number] [address] [place] [address] Oct, Neuroforaminal stenosis of s pine M99.89 ; Visit for TB skin test Z11.1 and Essential hypertension I10 [place] [address] [id number] [address] [place] [address] Oct, [place] [address] [id number] [address] [place] [address] Oct, Neuroforaminal stenosis of s pine M99.89 [place] [address] [facility] [id number] [address] [place] [address] Oct, Visit for TB skin test Z11.1 [place] [address] [facility] [id number] [address] [place] [id number] 05 Oct, 2017 Cystitis without hematuria N 30.90 [place] [address] [id number] [address] [place] [address] 28 Sep, 2017 Screening breast examination Z12.39 [place] [address] [id number] [address] [place] [address] 26 Sep, 2017 Dysuria R30.0 and Cystitis w ithout hematuria N30.90 [place] [address] [id number] [address] [place] [address] 14 Sep, 2017 Essential hypertension I10 a nd 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 [place] [address] [id number] [address] [place] [address] 04 Sep, 2017 Abnormal glucose R73.09 [place] [address] [facility] [id number] [address] [place] [address] August, Lateral epicondylitis, right elbow M77.11 [place] [address] [facility] [id number] [address] [place] [address] August, Screen for STD (sexually tra nsmitted disease) Z11.3 [place] [address] [facility] [id number] [address] [place] [address] August, Neuroforaminal stenosis of s pine M99.89 ; Mixed hyperlipidemia E78.2 ; Elevated fasting glucose R73.01 ; Screening mammogram, encounter for Z12.31 and Encounter for well woman exam without gynecological exam Z00.00 [place] [address] [id number] [address] [place] [address] August, Neuroforaminal stenosis of s pine M99.89 [place] [address] [facility] [id number] [address] [place] [address] August, Essential hypertension I10 ; Hypokalemia E87.6 and Mixed hyperlipidemia E78.2 [place] [address] [id number] [address] [place] [address] Jul, [place] [address] [facility] [id number] [address] [place] [address] Jul, Neuroforaminal stenosis of s jose M99.89 [facility] [place] [address] [id number] [address] [place] [address] Jul, Lateral epicondylitis, right elbow M77.11 [facility] [place] [address] [id number] [address] [place] [id number] Jul, [facility] [place] [address] [facility] [id number] [address] [place] [id number] Jun, High ankle sprain of right l ower extremity, initial encounter S93.431A [place] [address] [id number] [address] [place] [address] Jun, Essential hypertension I10 [place] [address] [id number] [address] [place] [phone] Jun, [place] [address] [id number] [address] [place] [address] Jun, [place] [address] [id number] [address] [place] [address] Jun, Neuroforaminal stenosis of s jose M99.89 [place] [address] [id number] [address] [place] [address] Jun, Pain of right upper extremit y M79.601 and Essential hypertension I10 [place] [address] [id number] [address] [place] [address] Jun, [place] [address] [facility] [id number] [address] [place] [address] Jun, Dysuria R30.0 ; Acute cystit is with hematuria N30.01 and Screen for STD (sexually transmitted disease) Z11.3 [place] [address] [id number] [address] [place] [address] May, Chronic pain due to trauma G 89.21 [place] [address] [facility] [id number] [address] [place] [address] May, Essential hypertension I10 [place] [id number] [place] [address] May, Neuroforaminal stenosis of ayla garcia M99.89 [place] [address] [place] [id number] [address] [place] [address] Apr, Allergic reaction, initial e ncounter T78.40XA [place] [address] [address] Apr, Low back pain, unspecified b ack pain laterality, unspecified chronicity, with sciatica presence unspecified M54.5 ; Acute cystitis with hematuria N30.01 ; Neuroforaminal stenosis of spine M99.89 ; Bilateral acute serous otitis media, recurrence not specified H65.03 ; Mixed hyperlipidemia E78.2 ; Essential hypertension I10 ; Immunization counseling Z71.89 and Encounter for immunization Z23 [place] [address] [address] Apr, Neck pain M54.2 [place] [address] [place] [id number] [address] [place] [address] Mar, Neuroforaminal stenosis of ayla garcia M99.89 [place] [address] [place] [id number] [address] [place] [address] Mar, Pharyngitis due to other org anism J02.8 [place] [address] [place] [id number] [address] [place] [address] Feb, Neuroforaminal stenosis of ayla garcia M99.89 [place] [address] [place] [id number] [address] [place] [id number] 08 Feb, 2017 UTI (urinary tract infection ) N39.0 [place] [address] [place] [id number] [address] [place] [address] 07 Feb, 2017 Recent urinary tract infecti on Z87.440 ; Neuroforaminal stenosis of spine M99.89 ; Neck pain M54.2 ; Chronic pain due to trauma G89.21 and Recurrent UTI N39.0 [facility] [place] [address] [id number] [address] [place] [id number] Feb, [facility] [place] [address] [id number] [address] [place] [address] Jan, Neuroforaminal stenosis of s pine M99.89 [facility] [place] [address] [id number] [address] [place] [id number] Dec, Neuroforaminal stenosis of s pine M99.89 [facility] [place] [address] [id number] [address] [place] [id number] 18 Dec, 2016 Acute seasonal allergic rhin itis due to pollen J30.1 [place] [address] [id number] [address] [place] [id number] 08 Dec, 2016 [place] [address] [id number] [address] [place] [address] 08 Dec, 2016 Acute seasonal allergic rhin itis, unspecified trigger J30.2 ; Allergic conjunctivitis of both eyes H10.13 and Dysfunction of both eustachian tubes H69.83 [place] [address] [id number] [address] [place] [address] Dec, [place] [address] [id number] [address] [place] [id number] Dec, Nevus D22.9 [facility] [place] [address] [id number] [address] [place] [id number] Nov, Chronic pain due to trauma G 89.21 and Neuroforaminal stenosis of spine M99.89 [facility] [place] [address] [id number] [address] [place] [id number] Nov, Neuroforaminal stenosis of s pine M99.89 ; Essential hypertension I10 ; Mixed hyperlipidemia E78.2 ; Hypokalemia E87.6 ; Neck pain M54.2 and Nevus D22.9 [facility] [place] [address] [id number] [address] [place] [phone] Oct, Neuroforaminal stenosis of s pine M99.89 [facility] [place] [address] [id number] [address] [place] [phone] Sep, Neuroforaminal stenosis of s pine M99.89 [facility] [place] [address] [id number] [address] [place] [id number] Sep, [facility] [place] [address] [id number] [address] [place] [id number] August, [facility] [place] [address] [id number] [address] [place] [id number] August, Neck pain M54.2 and Neurofor aminal stenosis of spine M99.89 [facility] [place] [address] [id number] [address] [place] [phone] August, Routine gynecological examin ation Z01.419 and Screening breast examination Z12.39 [facility] [place] [address] [id number] [address] [place] [id number] Jul, [facility] [place] [address] [id number] [address] [place] [address] Jul, [facility] [place] [address] [id number] [address] [place] [id number] Jul, Neuroforaminal stenosis of s pine M99.89 [facility] [place] [address] [id number] [address] [place] [id number] Jul, [facility] [place] [address] [id number] [address] [place] [address] Jul, Neuroforaminal stenosis of l umbar 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 [facility] [place] [address] [id number] [address] [place] [id number] Jul, [facility] [place] [address] [id number] [address] [place] [id number] Jul, [facility] [place] [address] [id number] [address] [place] [address] Jun, Neuroforaminal stenosis of ayla garcia M99.89 [place] [address] [address] [facility] [id number] [address] [place] [address] Jun, Uterine leiomyoma, unspecifi ed location D25.9 and Allergic reaction caused by a drug, initial encounter T78.40XA [place] [address] [address] [facility] [id number] [address] [place] [address] Jun, [place] [address] [address] [facility] [id number] [address] [place] [address] May, UTI symptoms R39.9 and Pain of right sacroiliac joint M53.3 [place] [id number] [address] [place] [address] May, Neuroforaminal stenosis of ayla garcia M99.89 [place] [address] [address] [place] [id number] [address] [place] [address] May, [place] [address] [address] [place] [id number] [address] [place] [address] May, Acute mucoid otitis media of left ear H65.112 and Acute non- recurrent maxillary sinusitis J01.00 [place] [id number] [address] [place] [address] May, Acute bacterial conjunctivit is of both eyes H10.33 ; Left arm pain M79.602 and Hypokalemia E87.6 [place] [address] [address] [place] [id number] [address] [place] [address] Apr, [place] [address] [address] [place] [id number] [address] [place] [address] Apr, Neuroforaminal stenosis of ayla garcia M99.89 ; Neck pain M54.2 ; Chronic pain due to trauma G89.21 ; Mixed hyperlipidemia E78.2 ; Essential hypertension I10 and Hypokalemia E87.6 [place] [address] [address] [place] [id number] [address] [place] [address] Mar, Oral candidiasis B37.0 ; Nathaniel roforaminal stenosis of spine M99.89 ; Neck pain M54.2 and Chronic pain due to trauma G89.21 [facility] [place] [address] [id number] [address] [place] [address] Feb, [facility] [place] [address] [id number] [address] [place] [address] Feb, [facility] [place] [address] [facility] [id number] [address] [place] [address] Feb, UTI (urinary tract infection ) N39.0 [facility] [place] [address] [facility] [id number] [address] [place] [address] Feb, Dysuria R30.0 [facility] [place] [address] [facility] [id number] [address] [place] [address] Feb, Dysuria R30.0 [facility] [place] [address] [facility] [id number] [address] [place] [address] Feb, Neuroforaminal stenosis of s pine M99.89 ; Neck pain M54.2 ; Essential hypertension I10 ; Chronic pain due to trauma G89.21 ; Dysuria R30.0 ; Abnormal MRI, shoulder R93.8 and Acute cystitis without hematuria N30.00 [facility] [place] [address] [id number] [address] [place] [id number] Jan, [facility] [place] [address] [facility] [id number] [address] [place] [id number] Jan, [facility] [place] [address] [facility] [id number] [address] [place] [phone] Jan, [facility] [place] [address] [facility] [id number] [address] [place] [address] Jan, Abnormal MRI R93.8 [facility] [place] [address] [facility] [id number] [address] [place] [id number] Dec, [facility] [address] [id number] [address] [place] [id number] 15 Dec, 2015 Acute pain of left shoulder M25.512 [facility] [place] [address] [id number] [address] [place] [id number] 09 Dec, 2015 [facility] [place] [address] [id number] [address] [place] [id number] 08 Dec, 2015 [facility] [place] [address] [id number] [address] [place] [id number] 07 Dec, 2015 Acute pain of left shoulder M25.512 [facility] [place] [address] [id number] [address] [place] [id number] 23 Nov, 2015 [facility] [place] [address] [id number] [address] [place] [id number] 16 Nov, 2015 Neuroforaminal stenosis of s pine M99.89 ; Neck pain M54.2 ; Abnormal mammogram R92.8 ; Essential hypertension I10 and Chronic pain due to trauma G89.21 [facility] [place] [address] [id number] [address] [place] [phone] Nov, [facility] [place] [address] [id number] [address] [place] [address] Oct, Acute stress disorder F43.0 [facility] [place] [address] [id number] [address] [place] [id number] Oct, [facility] [place] [address] [id number] [address] [place] [id number] Oct, [facility] [place] [address] [id number] [address] [place] [phone] Oct, [facility] [place] [address] [id number] [address] [place] [phone] Sep, [facility] [place] [address] [id number] [address] [place] [address] August, [facility] [place] [address] [id number] [address] [place] [address] Jul, Neuroforaminal stenosis of s pine M99.89 ; Neck pain M54.2 ; Abnormal mammogram R92.8 and Essential hypertension I10 [facility] [place] [address] [id number] [address] [place] [id number] Jul, [facility] [place] [address] [id number] [address] [place] [phone] Jul, [facility] [place] [address] [id number] [address] [place] [address] Jul, Abnormal mammogram R92.8 [facility] [place] [address] [id number] [address] [place] [id number] Jul, [facility] [place] [address] [facility] [id number] [address] [place] [id number] Jul, UTI (urinary tract infection ) N39.0 [facility] [place] [address] [id number] [address] [place] [id number] Jul, Dysuria R30.0 [facility] [place] [address] [id number] [address] [place] [phone] Jun, [facility] [place] [address] [id number] [address] [place] [phone] Jun, [facility] [place] [address] [id number] [address] [place] [phone] Jun, Hypokalemia E87.6 and Hematu martina R31.9 [facility] [place] [address] [id number] [address] [place] [address] Jun, Hypokalemia E87.6 [facility] [place] [address] [id number] [address] [place] [phone] Jun, [facility] [place] [address] [id number] [address] [place] [phone] Jun, Hypokalemia E87.6 [facility] [place] [address] [id number] [address] [place] [id number] Jun, Hypokalemia E87.6 [facility] [place] [address] [facility] [id number] [address] [place] [address] Jun, Neuroforaminal stenosis of s pine M99.89 ; Hypokalemia E87.6 ; Neck pain M54.2 ; Essential hypertension I10 ; Mixed hyperlipidemia E78.2 and Screening breast examination Z12.39 [facility] [place] [address] [address] Jun, Dysuria R30.0 ; UTI (urinary tract infection) N39.0 and Hematuria R31.9 [place] [address] [address] [place] [id number] [place] [address] May, [facility] [place] [address] [place] [id number] [place] [address] May, High risk sexual behavior Z7 2.51 ; Hypokalemia E87.6 ; Neuroforaminal stenosis of spine M99.89 ; Neck pain M54.2 ; Essential hypertension I10 ; Mixed hyperlipidemia E78.2 ; STD exposure Z20.2 and Concern about STD in female without diagnosis Z71.1 [place] [address] [address] [place] [id number] [address] [place] [id number] 16 May, 2015 Neuroforaminal stenosis of s pine M99.89 ; Neck pain M54.2 ; Hypokalemia E87.6 ; Essential hypertension I10 and Mixed hyperlipidemia E78.2 [facility] [place] [address] [place] [id number] [address] [place] [id number] May, [facility] [address] [facility] [id number] [address] [place] [id number] 08 May, 2015 High risk sexual behavior Z7 2.51 ; STD exposure Z20.2 and Concern about STD in female without diagnosis Z71.1 [facility] [place] [address] [place] [id number] [address] [place] [phone] May, [facility] [place] [address] [address] Apr, Neuroforaminal stenosis of s jose M99.89 ; Mixed hyperlipidemia E78.2 ; Essential hypertension I10 and Hypokalemia E87.6 [place] [address] [address] Mar, [facility] [place] [address] [address] Mar, Hypokalemia E87.6 [place] [address] [address] Mar, Neuroforaminal stenosis of s jose M99.89 ; Mixed hyperlipidemia E78.2 ; Neck pain M54.2 ; Essential hypertension I10 ; Abnormal fasting glucose R73.09 ; Hypokalemia E87.6 and Constipation K59.00 [place] [address] [address] Feb, Neuroforaminal stenosis of ayla garcia M99.89 ; Mixed hyperlipidemia E78.2 ; Neck pain M54.2 ; Essential hypertension I10 ; Abnormal fasting glucose R73.09 ; Hypokalemia E87.6 and Constipation K59.00 [place] [address] [address] Feb, Elevated fasting blood sugar R73.01 [place] [address] [id number] Feb, Elevated fasting blood sugar R73.01 [place] [address] [address] Feb, Hair loss L65.9 [place] [address] [address] Feb, Sinusitis J32.9 ; Essential hypertension I10 and Hair loss L65.9 [facility] [place] [address] [id number] Jan, [facility] [address] [id number] [address] [place] [address] Jan, Essential hypertension I10 ; Neuroforaminal stenosis of spine M99.89 ; Neck pain M54.2 ; Mixed hyperlipidemia E78.2 and Anxiety F41.9 [facility] [place] [address] [id number] [address] [place] [address] Jan, [facility] [place] [address] [id number] [address] [place] [address] Jan, Mixed hyperlipidemia E78.2 ; Essential (primary) hypertension I10 ; Strain of muscle, fascia and tendon at neck level, subsequent encounter S16.1XXD and Tension-type headache, unspecified, not intractable G44.209 [facility] [place] [address] [id number] [address] [place] [address] Dec, Lumbar back pain 724.2 and N euroforaminal stenosis of spine 724.00 [place] [address] [id number] [address] [place] [phone] Nov, [facility] [place] [address] [id number] [address] [place] [address] Nov, Lumbar back pain 724.2 and N euroforaminal stenosis of spine 724.00 [place] [address] [id number] [address] [place] [address] Nov, Edema 782.3 ; Lumbar back pa in 724.2 ; Essential hypertension, benign 401.1 ; Hyperlipemia 272.4 ; Neuroforaminal stenosis of spine 724.00 and Post-concussion headache 339.20 [facility] [place] [address] [id number] [address] [place] [address] Nov, [place] [address] [id number] [address] [place] [id number] Nov, [facility] [place] [address] [id number] [address] [place] [id number] Oct, Essential hypertension, sheridan gn 401.1 [place] [address] [id number] [address] [place] [address] Oct, Edema 782.3 ; Lumbar back pa in 724.2 ; Essential hypertension, benign 401.1 ; Hyperlipemia 272.4 ; Neuroforaminal stenosis of spine 724.00 and Post-concussion headache 339.20 [place] [address] [id number] [address] [place] [address] Oct, [place] [address] [id number] [address] [place] [phone] Oct, Edema 782.3 [place] [address] [id number] [address] [place] [id number] Oct, Lumbar back pain 724.2 [place] [address] [id number] [address] [place] [id number] Oct, Cervicalgia 723.1 ; Lumbar b ack pain 724.2 and High risk medication use V58.69 [place] [address] [id number] [address] [place] [address] Sep, [place] [address] [id number] [address] [place] [address] Sep, Lumbar strain 847.2 [place] [address] [id number] [address] [place] [address] August, Edema 782.3 and Eustachian t ube dysfunction 381.81 [place] [address] [id number] [address] [place] [address] August, [place] [address] [id number] [address] [place] [address] August, Eustachian tube dysfunction 381.81 [place] [address] [id number] [address] [place] [address] Jul, Otalgia 388.70 and Otitis me jonathon 382.9 [place] [address] [id number] [address] [place] [id number] 28 Jul, 2014 [facility] [address] [id number] [address] [place] [address], [place] [address] 28 Jul, 2014 [facility] [address] [id number] [address] [place] [address], [place] [address] 28 Jul, 2014 [facility] [address] [id number] [address] [place] [address], [place] [address] 14 Jul, 2014 [facility] [address] [id number] [address] [place] [address], [place] [address] 13 Jul, 2014 [facility] [address] [id number] [address] [place] [address], [place] [address] 27 Jun, 2014 [facility] [address] [id number] [address] [place] [address], [place] [address] 27 Jun, 2014 [facility] [address] [id number] [address] [place] [address], [place] [address] 16 Jun, 2014 [facility] [address] [id number] [address] [place] [address], [place] [address] 26 May, 2014 [facility] [address] [id number] [address] [place] [address], [place] [address] May, [facility] [address] [id number] [address] [place] [address], [place] [address] 23 May, 2014 [facility] [address] [id number] [address] [place] [address], [place] [address] 17 May, 2014 [facility] [address] [id number] [address] [place] [address], [place] [address] 17 May, 2014 [facility] [address] [id number] [address] [place] [address], [place] [address] May, 2014 [facility] [address] [id number] [address] [place] [address], [place] [address] 09 May, 2014 [facility] [address] [id number] [address] [place] [id number] 05 May, 2014 [facility] [address] [id number] [address] [place] [address], [place] [address] May, [facility] [address] [id number] [address] [place] [address], [place] [address] May, [facility] [address] [id number] [address] [place] [address], [place] [address] Apr, [facility] [address] [id number] [address] [place] [address], [place] [address] Apr, [facility] [address] [id number] [address] [place] [address], [place] [address] Apr, [facility] [address] [id number] [address] [place] [address], [place] [address] Apr, [facility] [address] [id number] [address] [place] [address], [place] [address] Apr, [facility] [address] [id number] [address] [place] [address], [place] [address] Apr, [facility] [address] [id number] [address] [place] [address], [place] [address] Apr, [facility] [address] [id number] [address] [place] [address], [place] [address] Apr, [facility] [address] [id number] [address] [place] [address], [place] [address] Apr, [facility] [address] [id number] [address] [place] [address], [place] [address] Apr, [facility] [address] [id number] [address] [place] [address], [place] [address] Apr, [facility] [address] [id number] [address] [place] [address], [place] [address] Apr, [facility] [address] [id number] [address] [place] [address], [place] [address] Apr, [facility] [address] [id number] [address] [place] [address] Apr, [facility] [address] [id number] [address] [place] [address], [place] [address] Apr, [facility] [address] [id number] [address] [place] [address], [place] [address] Mar, [facility] [address] [id number] [address] [place] [address], [place] [address] Mar, [facility] [address] [id number] [address] [place] [address], [place] [address] Mar, [facility] [address] [id number] [address] [place] [address], [place] [address] Mar, [facility] [address] [id number] [address] [place] [address], [place] [address] Feb, [facility] [address] [id number] [address] [place] [address], [place] [address] Feb, [facility] [address] [id number] [address] [place] [address], [place] [address] Feb, [facility] [address] [id number] [address] [place] [id number] Feb, [facility] [address] [id number] [address] [place] [id number] Jan, [facility] [address] [id number] [address] [place] [id number] Jan, [facility] [address] [id number] [address] [place] [id number] Jan, [facility] [address] [id number] [address] [place] [id number] Jan, [facility] [address] [id number] [address] [place] [id number] Jan, [facility] [address] [id number] [address] [place] [address], [place] [address] Jan, [facility] [address] [id number] [address] [place] [address], [place] [address] Jan, [facility] [address] [id number] [address] [place] [address], [place] [address] Jan, [facility] [address] [id number] [address] [place] [address], [place] [address] Dec, [facility] [address] [id number] [address] [place] [address], [place] [address] Dec, [facility] [address] [id number] [address] [place] [address], [place] [address] Dec, [facility] [address] [id number] [address] [place] [address], [place] [address] Dec, [facility] [address] [id number] [address] [place] [address], [place] [address] Oct, [facility] [address] [id number] [address] [place] [address], [place] [address] Oct, [facility] [address] [id number] [address] [place] [address], [place] [address] Oct, [facility] [address] [id number] [address] [place] [address], [place] [address] Oct, [facility] [address] [id number] [address] [place] [address], [place] [address] Oct, [facility] [address] [id number] [address] [place] [address], [place] [address] Oct, [facility] [address] [id number] [address] [place] [address], [place] [address] Oct, [facility] [address] [id number] [address] [place] [address], [place] [address] Oct, [facility] [address] [id number] [address] [place] [address], [place] [address] Sep, [facility] [address] [id number] [address] [place] [address], [place] [address] Sep, [facility] [address] [id number] [facility] [place] [address] Sep, [facility] [address] [id number] [facility] [place] [address] Sep, [facility] [address] [id number] [address] [place] [address], [place] [address] Sep, [facility] [address] [id number] [address] [place] [address], [place] [address] Sep, [facility] [address] [id number] [address] [place] [address], [place] [address] Sep, [facility] [address] [id number] [address] [place] [address], [place] [address] Sep, [facility] [address] [id number] [address] [place] [address], [place] [address] Sep, [facility] [address] [id number] [address] [place] [address], [place] [address] Sep, [facility] [address] [id number] [address] [place] [address], [place] [address] August, [facility] [address] [id number] [address] [place] [address], [place] [address] August, [facility] [address] [id number] [address] [place] [address], [place] [address] August, [facility] [address] [id number] [address] [place] [address], [place] [address] August, [facility] [address] [id number] [address] [place] [address], [place] [address] August, [facility] [address] [id number] [address] [place] [address], [place] [address] August, [facility] [address] [id number] [address] [place] [address], [place] [address] August, [facility] [address] [id number] [address] [place] [address], [place] [address] August, [facility] [address] [id number] [address] [place] [address], [place] [address] August, [facility] [address] [id number] [address] [place] [address], [place] [address] August, [facility] [address] [id number] [address] [place] [address], [place] [address] August, [facility] [address] [id number] [address] [place] [address], [place] [address] August, [facility] [address] [id number] [address] [place] [address], [place] [address] Jul, [facility] [address] [id number] [address] [place] [address], [place] [address] Jul, [facility] [address] [id number] [address] [place] [address], [place] [address] Jul, [facility] [address] [id number] [address] [place] [address], [place] [address] Jul, [facility] [address] [id number] [address] [place] [address], [place] [address] Jul, [facility] [address] [id number] [address] [place] [address], [place] [address] Jul, [facility] [address] [id number] [address] [place] [address], [place] [address] Jun, [facility] [address] [id number] [address] [place] [address], [place] [address] Jun, [facility] [address] [id number] [address] [place] [address], [place] [address] May, [facility] [address] [id number] [address] [place] [address], [place] [address] May, [facility] [address] [id number] [address] [place] [address], [place] [address] Apr, [facility] [address] [id number] [address] [place] [address], [place] [address] Apr, [facility] [address] [id number] [address] [place] [address], [place] [address] Apr, [facility] [address] [id number] [address] [place] [address], [place] [address] Apr, [facility] [address] [id number] [address] [place] [address], [place] [address] Apr, [facility] [address] [id number] [address] [place] [address], [place] [address] Apr, [facility] [address] [id number] [address] [place] [address], [place] [address] Apr, [facility] [address] [id number] [address] [place] [address], [place] [address] Apr, [facility] [address] [id number] [address] [place] [address], [place] [address] Apr, [facility] [address] [id number] [address] [place] [address], [place] [address] Apr, [facility] [address] [id number] [address] [place] [address], [place] [address] Apr, [facility] [address] [id number] [address] [place] [address], [place] [address] Apr, [facility] [address] [id number] [address] [place] [address], [place] [address] Apr, [facility] [address] [id number] [address] [place] [address], [place] [address] Mar, [facility] [address] [id number] [address] [place] [address], [place] [address] Mar, [facility] [address] [id number] [address] [place] [address], [place] [address] Mar, [facility] [address] [id number] [address] [place] [address] Mar, [facility] [address] [id number] [address] [place] [address], [place] [address] Feb, [facility] [address] [id number] [address] [place] [address], [place] [address] Feb, [facility] [address] [id number] [address] [place] [address] Feb, [facility] [address] [id number] [address] [place] [address] Feb, [facility] [address] [id number] [address] [place] [address], [place] [address] Jan, [facility] [address] [id number] [address] [place] [id number] 14 Jan, 2013 [facility] [address] [id number] [address] [place] [address] Jan, [facility] [address] [id number] [address] [place] [address] Jan, [facility] [address] [id number] [address] [place] [address] Jan, [facility] [address] [id number] [address] [place] [address] Jan, [facility] [address] [id number] [address] [place] [address] Jan, [facility] [address] [id number] [address] [place] [address] Jan, [facility] [address] [id number] [address] [place] [address], [place] [address] Jan, [facility] [address] [id number] [address] [place] [id number] 26 Dec, 2012 [facility] [address] [id number] [address] [place] [address], [place] [address] 16 Dec, 2012 [facility] [address] [id number] [address] [place] [address], [place] [address] 16 Dec, 2012 [facility] [address] [id number] [address] [place] [address], [place] [address] Dec, [facility] [address] [id number] [address] [place] [address], [place] [address] Nov, [facility] [address] [id number] [address] [place] [address], [place] [address] Nov, [facility] [address] [id number] [address] [place] [address], [place] [address] Nov, [facility] [address] [id number] [address] [place] [address], [place] [address] Nov, [facility] [address] [id number] [address] [place] [address], [place] [address] Oct, [facility] [address] [id number] [address] [place] [address], [place] [address] Sep, [facility] [address] [id number] [address] [place] [address], [place] [address] August, [facility] [address] [id number] [address] [place] [address], [place] [address] August, [facility] [address] [id number] [address] [place] [address], [place] [address] August, [facility] [address] [id number] [address] [place] [address], [place] [address] August, [facility] [address] [id number] [address] [place] [address], [place] [address] August, [facility] [address] [id number] [address] [place] [address], [place] [address] August, [facility] [address] [id number] [address] [place] [address], [place] [address] August, [facility] [address] [id number] [address] [place] [address], [place] [address] August, [facility] [address] [id number] [address] [place] [address], [place] [address] August, [facility] [address] [id number] [address] [place] [address], [place] [address] August, [facility] [address] [id number] [address] [place] [address], [place] [address] August, [facility] [address] [id number] [address] [place] [address], [place] [address] August, [facility] [address] [id number] [address] [place] [address], [place] [address] Jul, [facility] [address] [id number] [address] [place] [address], [place] [address] Jul, [facility] [address] [id number] [address] [place] [address], [place] [address] Jul, [facility] [address] [id number] [address] [place] [address], [place] [address] Jul, [facility] [address] [id number] [address] [place] [address], [place] [address] Jul, [facility] [address] [id number] [address] [place] [address], [place] [address] Jul, [facility] [address] [id number] [address] [place] [address], [place] [address] Jul, [facility] [address] [id number] [address] [place] [address], [place] [address] Jul, [facility] [address] [id number] [address] [place] [address], [place] [address] Jul, [facility] [address] [id number] [address] [place] [address], [place] [address] Jul, [facility] [address] [id number] [address] [place] [address], [place] [address] Jul, [facility] [address] [id number] [address] [place] [address], [place] [address] Jun, [facility] [address] [id number] [address] [place] [address], [place] [address] Jun, [facility] [address] [id number] [address] [place] [address], [place] [address] Jun, [facility] [address] [id number] [address] [place] [address], [place] [address] Jun, [facility] [address] [id number] [address] [place] [address], [place] [address] May, [facility] [address] [id number] [address] [place] [address], [place] [address] May, [facility] [address] [id number] [address] [place] [address], [place] [address] 05 May, 2012 [facility] [address] [id number] [address] [place] [address], [place] [address] May, [facility] [address] [id number] [address] [place] [address], [place] [address] May, [facility] [address] [id number] [address] [place] [address], [place] [address] May, [facility] [address] [id number] [address] [place] [address], [place] [address] Apr, [facility] [address] [id number] [address] [place] [address], [place] [address] Apr, [facility] [address] [id number] [address] [place] [address], [place] [address] 30 Apr, 2012 [facility] [address] [id number] [address] [place] [address], [place] [address] Apr, [facility] [address] [id number] [address] [place] [address], [place] [address] Mar, [facility] [address] [id number] [address] [place] [address], [place] [address] Mar, [facility] [address] [id number] [address] [place] [address], [place] [address] 14 Mar, 2012 [facility] [address] [id number] [address] [place] [address], [place] [address] 14 Mar, 2012 [facility] [address] [id number] [address] [place] [address], [place] [address] Mar, [facility] [address] [id number] [address] [place] [address], [place] [address] Mar, [facility] [address] [id number] [address] [place] [address], [place] [address] Mar, [facility] [address] [id number] [address] [place] [address], [place] [address] Feb, [facility] [address] [id number] [address] [place] [address], [place] [address] Feb, [facility] [address] [id number] [address] [place] [address], [place] [address] Feb, [facility] [address] [id number] [address] [place] [address], [place] [address] Feb, [facility] [address] [id number] [address] [place] [address] Jan, [facility] [address] [id number] [address] [place] [address] Jan, [facility] [address] [id number] [address] [place] [address] Jan, [facility] [address] [id number] [address] [place] [address], [place] [address] Jan, [facility] [address] [id number] [address] [place] [address] Jan, [facility] [address] [id number] [address] [place] [id number] Jan, [facility] [address] [id number] [address] [place] [address] Dec, [facility] [address] [id number] [address] [place] [address], [place] [address] Dec, [facility] [address] [id number] [address] [place] [address], [place] [address] Nov, [facility] [address] [id number] [address] [place] [address], [place] [address] Sep, [facility] [address] [id number] [address] [place] [address], [place] [address] August, [facility] [address] [id number] [address] [place] [address], [place] [address] August, [facility] [address] [id number] [address] [place] [address], [place] [address] August, [facility] [address] [id number] [address] [place] [address], [place] [address] August, [facility] [address] [id number] [address] [place] [address], [place] [address] August, [facility] [address] [id number] [address] [place] [address], [place] [address] Jun, [facility] [address] [id number] [address] [place] [address], [place] [address] Jun, [facility] [address] [id number] [address] [place] [address], [place] [address] Apr, [facility] [address] [id number] [address] [place] [address], [place] [address] Apr, [facility] [address] [id number] [address] [place] [address], [place] [address] Mar, [facility] [address] [id number] [address] [place] [address], [place] [address] Feb, [facility] [address] [id number] [address] [place] [address], [place] [address] Feb, [facility] [address] [id number] [address] [place] [id number] 14 Feb, 2011 [facility] [place] [address] [id number] [address] [place] [address] 17 Jan, 2011 [facility] [place] [address] [id number] [address] [place] [id number] 15 Jan, 2011 [facility] [place] [address] [id number] [address] [place] [address] Jan, [facility] [place] [address] [id number] [address] [place] [address] Jan, [facility] [place] [address] [id number] [address] [place] [address] May, [facility] [place] [address] [id number] [address] [place] [phone] Mar, [facility] [place] [address] [id number] [address] [place] [address] Oct, [facility] [place] [address] [id number] [address] [place] [phone] Sep, [facility], [place], [facility] [address] [id number] [address] [place] [id number] Mar, [facility], [place], [facility] [address] [id number] [address] [place] [id number] Jan, [facility], [place], [facility] [address] [id number] [address] [place] [id number] Jan, [facility], [place], [facility] [address] [id number] [address] [place] [id number] May, IMMUNIZATIONS No Known Immunizations SOCIAL HISTORY [...]
--- OUTSIDE RECORDS SUMMARY | 2019-11-23 05:46 | XMS REPORT ---
Author Author Liana STAUFFER [facility] Address [address] [place] [address] Care Team Providers Care Glass Polisher Name Role Phone BETI STAUFFER Unavailable PROBLEMS Type Condition ICD9-CM Code [id number] Code Onset Dates Condition S tatus SNOMED Code Problem Hematuria, unspecified type R31.9 Ac tive 00594607 Problem Abnormal glucose R73.09 Active 102 211562 Problem Anxiety F41.9 Active 57028555 Problem Neck pain M54.2 Active 07024068 Problem Essential hypertension I10 Active 59553162 Problem Rhinosinusitis J32.9 Active 15262 4004 Problem Neuroforaminal stenosis of spine M99.89 Active 227328569625 Problem Other chronic pain G89.29 Active 8 1430292 Problem Abnormal renal ultrasound R93.429 Acti ve [id number] Problem Mixed hyperlipidemia E78.2 Active 60913115 Problem Hypokalemia E87.6 Active 50907385 Problem Chronic pain due to trauma G89.21 Act juanis 022550638 Problem Seasonal allergies J30.2 Active 4 34819652 ALLERGIES No Information ENCOUNTERS Encounter Location Date Diagnosis [facility] [address] [id number] [address] [place] [address] Oct, [facility] [address] [id number] [address] [place] [address] Sep, [facility] [address] [id number] [address] [place] [address] Sep, Neuroforaminal stenosis of s pine M99.89 [facility] [address] [id number] [address] [place] [address] 18 Sep, 2019 Encounter for laboratory luisa ting for COVID-19 virus V73.89 [facility] [address] [id number] [address] [place] [address] August, Neuroforaminal stenosis of s pine M99.89 [facility] [address] [id number] [address] [place] [address] August, Acute bacterial conjunctivit is of right eye H10.31 [facility] [address] [id number] [address] [place] [address] August, Low back pain M54.5 ; Other chronic pain G89.29 and Dysuria R30.0 [facility] [address] [id number] [address] [place] [address] August, [facility] [address] [id number] [address] [place] [address] Jul, Neuroforaminal stenosis of s jose M99.89 [facility] [address] [id number] [address] [place] [address] Jul, Allergic conjunctivitis of b oth eyes H10.13 [facility] [address] [id number] [address] [place] [address] Jun, Hypokalemia E87.6 [facility] [address] [id number] [address] [place] [address] Jun, [facility] [address] [id number] [address] [place] [address] Jun, Neuroforaminal stenosis of s pine M99.89 [facility] [address] [id number] [address] [place] [address] Jun, Lateral epicondylitis, left elbow M77.12 and Medial epicondylitis, left elbow M77.02 [facility] [address] [id number] [address] [place] [address] 16 Jun, 2019 Foraminal stenosis of lumbar region M48.061 ; Segmental dysfunction of thoracic region M99.02 ; Segmental dysfunction of lumbar region M99.03 and Segmental dysfunction of sacral region M99.04 [facility] [address] [id number] [address] [place] [address] 28 May, 2019 Left elbow pain M25.522 [facility] [address] [id number] [address] [place] [address] May, [facility] [address] [id number] [address] [place] [address] May, Left elbow pain M25.522 [facility] [address] [id number] [address] [place] [address] May, Neuroforaminal stenosis of s pine M99.89 [facility] [address] [id number] [address] [place] [address] May, Rhinosinusitis J32.9 ; Left elbow pain M25.522 and Neck pain M54.2 [facility] [address] [id number] [address] [place] [address] 14 May, 2019 Lateral epicondylitis of lef t elbow M77.12 [facility] [address] [id number] [address] [place] [address] Apr, Neuroforaminal stenosis of s pine M99.89 [facility] [address] [id number] [address] [place] [address] Apr, Essential hypertension I10 a nd Mixed hyperlipidemia E78.2 [facility] [address] [id number] [address] [place] [address] Mar, Neuroforaminal stenosis of s pine M99.89 [facility] [address] [id number] [address] [place] [address] Mar, Epicondylitis, lateral, left M77.12 [facility] [address] [id number] [address] [place] [address] Mar, [facility] [address] [id number] [address] [place] [address] Mar, Neuroforaminal stenosis of s pine M99.89 [facility] [address] [id number] [address] [place] [address] Feb, Neuroforaminal stenosis of s jose M99.89 ; Essential hypertension I10 ; Mixed hyperlipidemia E78.2 ; Encounter for immunization Z23 and Seasonal allergies J30.2 [facility] [address] [id number] [address] [place] [address] Jan, Neuroforaminal stenosis of s pine M99.89 [facility] [address] [id number] [address] [place] [address] Dec, Neuroforaminal stenosis of s pine M99.89 [facility] [address] [place] [id number] [address] [place] [address] Dec, Neuroforaminal stenosis of s jose M99.89 [facility] [address] [place] [address] Nov, [facility] [address] [place] [id number] [address] [place] [address] Nov, Neuroforaminal stenosis of s jose M99.89 [facility] [address] [place] [id number] [address] [place] [address] Nov, Acute non-recurrent maxillar y sinusitis J01.00 [facility] [address] [place] [id number] [address] [place] [address] Oct, Hypokalemia E87.6 [facility] [address] [id number] [address] [place] [address] Oct, Wasp sting, undetermined int ent, initial encounter T63.464A and Cellulitis of left lower extremity L03.116 [facility] [address] [place] [id number] [address] [place] [address] Oct, Neuroforaminal stenosis of ayla garcia M99.89 [facility] [address] [place] [id number] [address] [place] [address] Sep, [facility] [address] [id number] [address] [place] [address] Sep, [facility] [address] [id number] [address] [place] [address] 18 Sep, 2018 Routine screening for STI (s exually transmitted infection) Z11.3 [facility] [address] [id number] [address] [place] [address] 14 Sep, 2018 Routine screening for STI (s exually transmitted infection) Z11.3 ; Well woman exam with routine gynecological exam Z01.419 and Breast cancer screening Z12.39 [facility] [address] [id number] [address] [place] [address] 10 Sep, 2018 Neuroforaminal stenosis of s pine M99.89 [facility] [place] [address] [id number] [address] [place] [address] August, Neuroforaminal stenosis of s pine M99.89 [facility] [address] [id number] [address] [place] [address] August, Neuroforaminal stenosis of s pine M99.89 ; Chronic pain due to trauma G89.21 and Mixed hyperlipidemia E78.2 [facility] [address] [id number] [address] [place] [address] 16 Jul, 2018 Viral upper respiratory illn ess J06.9 and Acute non-recurrent frontal sinusitis J01.10 [facility] [place] [address] [id number] [address] [place] [address] Jul, Congestion of nasal sinus R0 9.81 [facility] [place] [address] [id number] [address] [place] [address] Jul, Neuroforaminal stenosis of s pine M99.89 and Essential hypertension I10 [facility] [address] [id number] [address] [place] [address] May, Neuroforaminal stenosis of s pine M99.89 [facility] [address] [id number] [address] [place] [address] May, [facility] [address] [id number] [address] [place] [address] May, Congestion of nasal sinus R0 9.81 [facility] [address] [id number] [address] [place] [address] May, [facility] [address] [id number] [address] [place] [address] Apr, Neuroforaminal stenosis of s pine M99.89 [facility] [address] [id number] [address] [place] [address] Apr, Neuroforaminal stenosis of s pine M99.89 and Chronic pain due to trauma G89.21 [facility] [address] [place] [id number] [address] [place] [address] Mar, UTI (urinary tract infection ) N39.0 [facility] [address] [id number] [address] [place] [address] Mar, Vertigo R42 [facility] [address] [id number] [address] [place] [address] Mar, Neuroforaminal stenosis of s pine M99.89 [facility] [address] [place] [id number] [address] [place] [address] Feb, Extensor tendon disruption M 67.89 [facility] [address] [id number] [address] [place] [address] Feb, Neuroforaminal stenosis of s pine M99.89 and High risk medication use Z79.899 [facility] [address] [id number] [address] [place] [address] Jan, Hypokalemia E87.6 [facility] [address] [id number] [address] [place] [address] Jan, Flank pain R10.9 and Acute r ight-sided low back pain without sciatica M54.5 [facility] [address] [address] Jan, Hypokalemia E87.6 [place] [address] [address] Jan, [facility] [address] [address] Jan, URI, acute J06.9 [place] [address] [address] 05 Jan, 2018 Neuroforaminal stenosis of s jose M99.89 [place] [address] [place] [address] 13 Dec, 2017 Lateral epicondylitis, right elbow M77.11 [facility] [address] [address] 11 Dec, 2017 Allergic rhinitis due to monica rosalina, unspecified seasonality J30.1 and Allergic conjunctivitis of both eyes H10.13 [facility] [address] [address] 10 Dec, 2017 Neuroforaminal stenosis of s jose M99.89 [place] [address] [address] 06 Dec, 2017 Mixed hyperlipidemia E78.2 [facility] [place] [address] [address] 05 Dec, 2017 Abnormal glucose R73.09 ; Ab normal renal ultrasound R93.429 ; Dysuria R30.0 ; Cystitis without hematuria N30.90 ; Hypokalemia E87.6 ; Mixed hyperlipidemia E78.2 and Hematuria, unspecified type R31.9 [facility] [place] [address] [place] [id number] [address] [place] [address] Nov, Hypokalemia E87.6 ; Mixed hy perlipidemia E78.2 and Hematuria, unspecified type R31.9 [facility] [place] [address] [place] [address] Nov, [facility] [address] [id number] [address] [place] [address] Nov, Hypokalemia E87.6 [facility] [address] [id number] [address] [place] [address] Nov, [facility] [address] [id number] [address] [place] [address] Nov, Abnormal renal ultrasound R9 3.429 [facility] [address] [id number] [address] [place] [address] Nov, Abnormal renal ultrasound R9 3.429 [facility] [address] [id number] [address] [place] [address] Nov, Hematuria, unspecified type R31.9 and 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 [place] [address] [id number] [address] [place] [address] Nov, Dysuria R30.0 [facility] [address] [id number] [address] [place] [address] Oct, Lateral epicondylitis, right elbow M77.11 [facility] [address] [id number] [address] [place] [address] Oct, Neuroforaminal stenosis of s pine M99.89 ; Visit for TB skin test Z11.1 and Essential hypertension I10 [facility] [address] [id number] [address] [place] [address] Oct, [facility] [address] [id number] [address] [place] [address] Oct, Neuroforaminal stenosis of s pine M99.89 [facility] [address] [id number] [address] [place] [address] Oct, Visit for TB skin test Z11.1 [facility] [address] [id number] [address] [place] [address] 05 Oct, 2017 Cystitis without hematuria N 30.90 [place] [address] [id number] [address] [place] [address] 28 Sep, 2017 Screening breast examination Z12.39 [facility] [address] [id number] [address] [place] [address] 26 Sep, 2017 Dysuria R30.0 and Cystitis w ithout hematuria N30.90 [place] [address] [place] [id number] [address] [place] [address] 14 Sep, 2017 Essential hypertension I10 a nd 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 [facility] [address] [place] [id number] [place] [address] 04 Sep, 2017 Abnormal glucose R73.09 [facility] [address] [place] [id number] [place] [address] August, Lateral epicondylitis, right elbow M77.11 [place] [address] [place] [address] August, Screen for STD (sexually tra nsmitted disease) Z11.3 [facility] [address] [place] [id number] [address] [place] [address] August, Neuroforaminal stenosis of s pine M99.89 ; Mixed hyperlipidemia E78.2 ; Elevated fasting glucose R73.01 ; Screening mammogram, encounter for Z12.31 and Encounter for well woman exam without gynecological exam Z00.00 [facility] [address] [place] [id number] [address] [place] [address] August, Neuroforaminal stenosis of s pine M99.89 [place] [address] [place] [id number] [address] [place] [address] August, Essential hypertension I10 ; Hypokalemia E87.6 and Mixed hyperlipidemia E78.2 [place] [address] [place] [id number] [address] [place] [address] Jul, [place] [address] [id number] [address] [place] [address] Jul, Neuroforaminal stenosis of s jose M99.89 [facility] [address] [id number] [address] [place] [address] Jul, Lateral epicondylitis, right elbow M77.11 [place] [address] [id number] [address] [place] [address] Jul, [facility] [address] [id number] [address] [place] [address] Jun, High ankle sprain of right l ower extremity, initial encounter S93.431A [place] [address] [id number] [address] [place] [address] Jun, Essential hypertension I10 [facility] [address] [id number] [address] [place] [address] Jun, [place] [address] [id number] [address] [place] [address] Jun, [facility] [address] [id number] [address] [place] [address] Jun, Neuroforaminal stenosis of s jose M99.89 [place] [address] [id number] [address] [place] [address] Jun, Pain of right upper extremit y M79.601 and Essential hypertension I10 [place] [address] [id number] [address] [place] [address] Jun, [place] [address] [id number] [address] [place] [address] Jun, Dysuria R30.0 ; Acute cystit is with hematuria N30.01 and Screen for STD (sexually transmitted disease) Z11.3 [facility] [address] [id number] [address] [place] [address] May, Chronic pain due to trauma G 89.21 [place] [address] [id number] [address] [place] [address] May, Essential hypertension I10 [place] [address] [id number] [address] [place] [address] May, Neuroforaminal stenosis of s pine M99.89 [place] [address] [place] [id number] [address] [place] [address] Apr, Allergic reaction, initial e ncounter T78.40XA [place] [address] [id number] [address] [place] [address] Apr, Low back pain, unspecified b ack pain laterality, unspecified chronicity, with sciatica presence unspecified M54.5 ; Acute cystitis with hematuria N30.01 ; 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 ; Bilateral acute serous otitis media, recurrence not specified H65.03 ; Mixed hyperlipidemia E78.2 ; Essential hypertension I10 ; Immunization counseling Z71.89 and Encounter for immunization Z23 [place] [address] [place] [id number] [address] [place] [address] Apr, Neck pain M54.2 [place] [address] [id number] [address] [place] [address] Mar, Neuroforaminal stenosis of s jose M99.89 [place] [address] [id number] [address] [place] [address] Mar, Pharyngitis due to other org anism J02.8 [place] [address] [id number] [address] [place] [address] Feb, Neuroforaminal stenosis of s pine M99.89 [place] [address] [id number] [address] [place] [address] 08 Feb, 2017 UTI (urinary tract infection ) N39.0 [place] [address] [id number] [address] [place] [address] 07 Feb, 2017 Recent urinary tract infecti on Z87.440 ; Neuroforaminal stenosis of 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 ; Neck pain M54.2 ; Chronic pain due to trauma G89.21 and Recurrent UTI N39.0 [place] [address] [place] [id number] [place] [address] Feb, [place] [address] [id number] [address] [place] [address] Jan, Neuroforaminal stenosis of s pine M99.89 [place] [address] [id number] [address] [place] [address] Dec, Neuroforaminal stenosis of s pine M99.89 [place] [address] [id number] [address] [place] [address] 18 Dec, 2016 Acute seasonal allergic rhin itis due to pollen J30.1 [place] [id number] [place] [address] 08 Dec, 2016 [place] [address] [place] [id number] [address] [place] [address] 08 Dec, 2016 Acute seasonal allergic rhin itis, unspecified trigger J30.2 ; Allergic conjunctivitis of both eyes H10.13 and Dysfunction of both eustachian tubes H69.83 [place] [address] [id number] [address] [place] [address] 07 Dec, 2016 [place] [address] [place] [id number] [address] [place] [address] Dec, Nevus D22.9 [place] [address] [id number] [address] [place] [address] Nov, Chronic pain due to trauma G 89.21 and Neuroforaminal stenosis of spine M99.89 [place] [address] [id number] [address] [place] [address] Nov, Neuroforaminal stenosis of s pine M99.89 ; Essential hypertension I10 ; Mixed hyperlipidemia E78.2 ; Hypokalemia E87.6 ; Neck pain M54.2 and Nevus D22.9 [facility] [address] [id number] [address] [place] [address] Oct, Neuroforaminal stenosis of s pine M99.89 [facility] [address] [id number] [address] [place] [address] Sep, Neuroforaminal stenosis of s pine M99.89 [facility] [address] [id number] [address] [place] [address] Sep, [facility] [address] [id number] [address] [place] [address] August, [facility] [address] [id number] [address] [place] [address] August, Neck pain M54.2 and Neurofor aminal stenosis of spine M99.89 [facility] [address] [id number] [address] [place] [address] August, Routine gynecological examin ation Z01.419 and Screening breast examination Z12.39 [facility] [address] [id number] [address] [place] [address] Jul, [facility] [address] [id number] [address] [place] [address] Jul, [facility] [address] [id number] [address] [place] [address] Jul, Neuroforaminal stenosis of s pine M99.89 [facility] [address] [id number] [address] [place] [address] Jul, [facility] [address] [id number] [address] [place] [address] Jul, Neuroforaminal stenosis of l umbar 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 [facility] [address] [id number] [address] [place] [address] Jul, [facility] [address] [id number] [address] [place] [address] Jul, [facility] [address] [id number] [address] [place] [address] Jun, Neuroforaminal stenosis of ayla garcia M99.89 [facility] [address] [place] [id number] [address] [place] [address] Jun, Uterine leiomyoma, unspecifi ed location D25.9 and Allergic reaction caused by a drug, initial encounter T78.40XA [facility] [address] [place] [id number] [address] [place] [address] Jun, [facility] [address] [id number] [address] [place] [address] May, UTI symptoms R39.9 and Pain of right sacroiliac joint M53.3 [place] [address] [place] [id number] [place] [id number] May, Neuroforaminal stenosis of ayla garcia M99.89 [place] [id number] [place] [id number] [place] [id number] May, [place] [address] [place] [id number] [place] [address] May, Acute mucoid otitis media of left ear H65.112 and Acute non- recurrent maxillary sinusitis J01.00 [place] [address] [place] [id number] [place] [phone] May, Acute bacterial conjunctivit is of both eyes H10.33 ; Left arm pain M79.602 and Hypokalemia E87.6 [facility] [address] [place] [address] [id number] [place] [id number] Apr, [place] [address] [place] [id number] [place] [phone] Apr, Neuroforaminal stenosis of ayla garcia M99.89 ; Neck pain M54.2 ; Chronic pain due to trauma G89.21 ; Mixed hyperlipidemia E78.2 ; Essential hypertension I10 and Hypokalemia E87.6 [facility] [address] [id number] [address] [place] [phone] Mar, Oral candidiasis B37.0 ; Nathaniel roforaminal stenosis of spine M99.89 ; Neck pain M54.2 and Chronic pain due to trauma G89.21 [facility] [address] [id number] [address] [place] [id number] Feb, [facility] [address] [id number] [address] [place] [id number] Feb, [facility] [address] [id number] [address] [place] [id number] Feb, UTI (urinary tract infection ) N39.0 [facility] [address] [id number] [address] [place] [id number] 09 Feb, 2016 Dysuria R30.0 [facility] [address] [id number] [address] [place] [id number] Feb, Dysuria R30.0 [facility] [address] [id number] [address] [place] [id number] Feb, Neuroforaminal stenosis of s pine M99.89 ; Neck pain M54.2 ; Essential hypertension I10 ; Chronic pain due to trauma G89.21 ; Dysuria R30.0 ; Abnormal MRI, shoulder R93.8 and Acute cystitis without hematuria N30.00 [facility] [address] [id number] [address] [place] [address] Jan, [facility] [address] [id number] [address] [place] [address] Jan, [facility] [address] [id number] [address] [place] [address] Jan, [facility] [address] [id number] [address] [place] [address] Jan, Abnormal MRI R93.8 [facility] [address] [id number] [address] [place] [address] 29 Dec, 2015 [facility] [address] [id number] [address] [place] [address] 15 Dec, 2015 Acute pain of left shoulder M25.512 [facility] [address] [id number] [address] [place] [address] 09 Dec, 2015 [facility] [address] [id number] [address] [place] [address] 08 Dec, 2015 [facility] [address] [id number] [address] [place] [address] 07 Dec, 2015 Acute pain of left shoulder M25.512 [facility] [address] [id number] [address] [place] [address] 23 Nov, 2015 [facility] [address] [id number] [address] [place] [address] 16 Nov, 2015 Neuroforaminal stenosis of s pine M99.89 ; Neck pain M54.2 ; Abnormal mammogram R92.8 ; Essential hypertension I10 and Chronic pain due to trauma G89.21 [facility] [address] [id number] [address] [place] [address] Nov, [facility] [address] [id number] [address] [place] [address] Oct, Acute stress disorder F43.0 [facility] [address] [id number] [address] [place] [address] Oct, [facility] [address] [id number] [address] [place] [address] Oct, [facility] [address] [id number] [address] [place] [address] 05 Oct, 2015 [facility] [address] [id number] [address] [place] [address] Sep, [facility] [address] [id number] [address] [place] [address] August, [facility] [address] [id number] [address] [place] [address] Jul, Neuroforaminal stenosis of s pine M99.89 ; Neck pain M54.2 ; Abnormal mammogram R92.8 and Essential hypertension I10 [facility] [address] [id number] [address] [place] [address] Jul, [facility] [address] [id number] [address] [place] [address] Jul, [facility] [address] [id number] [address] [place] [address] Jul, Abnormal mammogram R92.8 [facility] [address] [id number] [address] [place] [address] Jul, [facility] [address] [id number] [address] [place] [address] Jul, UTI (urinary tract infection ) N39.0 [facility] [address] [id number] [address] [place] [address] Jul, Dysuria R30.0 [facility] [address] [id number] [address] [place] [address] Jun, [facility] [address] [id number] [address] [place] [address] Jun, [facility] [address] [id number] [address] [place] [address] Jun, Hypokalemia E87.6 and Hematu martina R31.9 [facility] [address] [id number] [address] [place] [address] Jun, Hypokalemia E87.6 [facility] [address] [id number] [address] [place] [address] Jun, [facility] [address] [id number] [address] [place] [address] 18 Jun, 2015 Hypokalemia E87.6 [facility] [place] [address] [address] 18 Jun, 2015 Hypokalemia E87.6 [place] [address] [address] 15 Jun, 2015 Neuroforaminal stenosis of s pine M99.89 ; Hypokalemia E87.6 ; Neck pain M54.2 ; Essential hypertension I10 ; Mixed hyperlipidemia E78.2 and Screening breast examination Z12.39 [facility] [address] [address] 08 Jun, 2015 Dysuria R30.0 ; UTI (urinary tract infection) N39.0 and Hematuria R31.9 [facility] [address] [address] 26 May, [address] [address] 18 May, 2015 High risk sexual behavior Z7 2.51 ; Hypokalemia E87.6 ; Neuroforaminal stenosis of spine M99.89 ; Neck pain M54.2 ; Essential hypertension I10 ; Mixed hyperlipidemia E78.2 ; STD exposure Z20.2 and Concern about STD in female without diagnosis Z71.1 [place] [address] [address] 16 May, 2015 Neuroforaminal stenosis of s pine M99.89 ; Neck pain M54.2 ; Hypokalemia E87.6 ; Essential hypertension I10 and Mixed hyperlipidemia E78.2 [place] [address] [address] 11 May, 2015 [facility] [address] [address] 08 May, 2015 High risk sexual behavior Z7 2.51 ; STD exposure Z20.2 and Concern about STD in female without diagnosis Z71.1 [place] [address] [address] May, [facility] [address] [address] Apr, Neuroforaminal stenosis of ayla garcia M99.89 ; Mixed hyperlipidemia E78.2 ; Essential hypertension I10 and Hypokalemia E87.6 [place] [address] [address] Mar, [place] [address] [address] Mar, Hypokalemia E87.6 [place] [address] [address] Mar, Neuroforaminal stenosis of ayla garcia M99.89 ; Mixed hyperlipidemia E78.2 ; Neck pain M54.2 ; Essential hypertension I10 ; Abnormal fasting glucose R73.09 ; Hypokalemia E87.6 and Constipation K59.00 [place] [address] [address] Feb, Neuroforaminal stenosis of ayla garcia M99.89 ; Mixed hyperlipidemia E78.2 ; Neck pain M54.2 ; Essential hypertension I10 ; Abnormal fasting glucose R73.09 ; Hypokalemia E87.6 and Constipation K59.00 [place] [address] [address] Feb, Elevated fasting blood sugar R73.01 [place] [id number] [place] [address] Feb, Elevated fasting blood sugar R73.01 [place] [address] [address] Feb, Hair loss L65.9 [place] [address] [address] Feb, Sinusitis J32.9 ; Essential hypertension I10 and Hair loss L65.9 [place] [address] [place] [address] Jan, [facility] [address] [id number] [address] [place] [address] Jan, Essential hypertension I10 ; Neuroforaminal stenosis of spine M99.89 ; Neck pain M54.2 ; Mixed hyperlipidemia E78.2 and Anxiety F41.9 [facility] [address] [id number] [address] [place] [address] Jan, [facility] [address] [id number] [address] [place] [address] Jan, Mixed hyperlipidemia E78.2 ; Essential (primary) hypertension I10 ; Strain of muscle, fascia and tendon at neck level, subsequent encounter S16.1XXD and Tension-type headache, unspecified, not intractable G44.209 [facility] [address] [id number] [address] [place] [address] Dec, Lumbar back pain 724.2 and N euroforaminal stenosis of spine 724.00 [facility] [address] [id number] [address] [place] [address] Nov, [facility] [address] [id number] [address] [place] [address] Nov, Lumbar back pain 724.2 and N euroforaminal stenosis of spine 724.00 [facility] [address] [id number] [address] [place] [address] Nov, Edema 782.3 ; Lumbar back pa in 724.2 ; Essential hypertension, benign 401.1 ; Hyperlipemia 272.4 ; Neuroforaminal stenosis of spine 724.00 and Post-concussion headache 339.20 [facility] [address] [id number] [address] [place] [address] Nov, [facility] [address] [id number] [address] [place] [address] Nov, [facility] [address] [id number] [address] [place] [address] Oct, Essential hypertension, [place] gn 401.1 [place] [address] [id number] [address] [place] [address] Oct, Edema 782.3 ; Lumbar back pa in 724.2 ; Essential hypertension, benign 401.1 ; Hyperlipemia 272.4 ; Neuroforaminal stenosis of 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.00 and Post-concussion headache 339.20 [facility] [address] [id number] [address] [place] [address] Oct, [facility] [address] [id number] [address] [place] [address] Oct, Edema 782.3 [place] [address] [address] [facility] [id number] [address] [place] [address] Oct, Lumbar back pain 724.2 [place] [address] [address] [facility] [id number] [address] [place] [address] Oct, Cervicalgia 723.1 ; Lumbar b ack pain 724.2 and High risk medication use V58.69 [place] [address] [id number] [address] [place] [address] Sep, [place] [address] [facility] [id number] [address] [place] [address] Sep, Lumbar strain 847.2 [place] [address] [facility] [id number] [address] [place] [address] August, Edema 782.3 and Eustachian t ube dysfunction 381.81 [place] [address] [id number] [address] [place] [address] August, [place] [address] [facility] [id number] [address] [place] [address] August, Eustachian tube dysfunction 381.81 [facility] [address] [facility] [id number] [address] [place] [address] Jul, Otalgia 388.70 and Otitis me jonathon 382.9 [facility] [address] [id number] [address] [place] [address], [place] [address] Jul, [facility] [address] [id number] [address] [place] [address], [place] [address] Jul, [facility] [address] [id number] [address] [place] [address], [place] [address] Jul, [facility] [address] [id number] [address] [place] [address], [place] [address] 14 Jul, 2014 [facility] [address] [id number] [address] [place] [address], [place] [address] Jul, [facility] [address] [id number] [address] [place] [address], [place] [address] Jun, [facility] [address] [id number] [address] [place] [address], [place] [address] Jun, [facility] [address] [id number] [address] [place] [address] 16 Jun, 2014 [facility] [address] [id number] [address] [place] [address], [place] [address] May, [facility] [address] [id number] [address] [place] [address], [place] [address] May, [facility] [address] [id number] [address] [place] [address], [place] [address] May, 2014 [facility] [address] [id number] [address] [place] [address] May, 2014 [facility] [address] [id number] [address] [place] [address], [place] [address] May, [facility] [address] [id number] [address] [place] [address] May, [facility] [address] [id number] [address] [place] [address] May, [facility] [address] [id number] [address] [place] [address], [place] [address] May, [facility] [address] [id number] [address] [place] [address], [place] [address] May, [facility] [address] [id number] [address] [place] [address], [place] [address] May, [facility] [address] [id number] [address] [place] [address], [place] [address] Apr, [facility] [address] [id number] [address] [place] [address], [place] [address] Apr, [facility] [address] [id number] [address] [place] [address], [place] [address] Apr, [facility] [address] [id number] [address] [place] [address], [place] [address] Apr, [facility] [address] [id number] [address] [place] [address], [place] [address] Apr, [facility] [address] [id number] [address] [place] [address], [place] [address] Apr, [facility] [address] [id number] [address] [place] [address], [place] [address] Apr, [facility] [address] [id number] [address] [place] [address], [place] [address] Apr, [facility] [address] [id number] [address] [place] [address], [place] [address] Apr, [facility] [address] [id number] [address] [place] [address], [place] [address] Apr, [facility] [address] [id number] [address] [place] [address], [place] [address] Apr, [facility] [address] [id number] [address] [place] [address], [place] [address] Apr, [facility] [address] [id number] [address] [place] [address], [place] [address] Apr, [facility] [address] [id number] [address] [place] [address], [place] [address] Apr, [facility] [address] [id number] [address] [place] [address], [place] [address] Apr, [facility] [address] [id number] [address] [place] [address], [place] [address] Mar, [facility] [address] [id number] [address] [place] [address], [place] [address] Mar, [facility] [address] [id number] [address] [place] [address], [place] [address] Mar, [facility] [address] [id number] [address] [place] [address], [place] [address] Mar, [facility] [address] [id number] [address] [place] [address], [place] [address] Feb, [facility] [address] [id number] [address] [place] [address], [place] [address] Feb, [facility] [address] [id number] [address] [place] [address], [place] [address] Feb, [facility] [address] [id number] [address] [place] [address], [place] [address] Feb, [facility] [address] [id number] [address] [place] [address], [place] [address] Jan, [facility] [address] [id number] [address] [place] [address] Jan, [facility] [address] [id number] [address] [place] [address], [place] [address] Jan, [facility] [address] [id number] [address] [place] [address], [place] [address] Jan, [facility] [address] [id number] [address] [place] [address], [place] [address] Jan, [facility] [address] [id number] [address] [place] [address], [place] [address] Jan, [facility] [address] [id number] [address] [place] [address], [place] [address] Jan, [facility] [address] [id number] [address] [place] [address], [place] [address] Jan, [facility] [address] [id number] [address] [place] [address], [place] [address] Dec, [facility] [address] [id number] [address] [place] [address], [place] [address] Dec, [facility] [address] [id number] [address] [place] [address], [place] [address] Dec, [facility] [address] [id number] [address] [place] [address], [place] [address] Dec, [facility] [address] [id number] [address] [place] [address], [place] [address] Oct, [facility] [address] [id number] [address] [place] [address], [place] [address] Oct, [facility] [address] [id number] [address] [place] [address], [place] [address] Oct, [facility] [address] [id number] [address] [place] [address], [place] [address] Oct, [facility] [address] [id number] [address] [place] [address], [place] [address] Oct, [facility] [address] [id number] [address] [place] [address], [place] [address] Oct, [facility] [address] [id number] [address] [place] [address], [place] [address] Oct, [facility] [address] [id number] [address] [place] [address], [place] [address] Oct, [facility] [address] [id number] [address] [place] [address], [place] [address] Sep, [facility] [address] [id number] [facility] [address] Sep, [facility] [address] [id number] [facility] [address] Sep, [facility] [address] [id number] [facility] [address] Sep, [facility] [address] [id number] [address] [place] [address], [place] [address] Sep, [facility] [address] [id number] [address] [place] [address], [place] [address] Sep, [facility] [address] [id number] [address] [place] [address], [place] [address] Sep, [facility] [address] [id number] [address] [place] [address], [place] [address] Sep, [facility] [address] [id number] [address] [place] [address], [place] [address] Sep, [facility] [address] [id number] [address] [place] [address], [place] [address] Sep, [facility] [address] [id number] [address] [place] [address], [place] [address] August, [facility] [address] [id number] [address] [place] [address], [place] [address] August, [facility] [address] [id number] [address] [place] [address], [place] [address] August, [facility] [address] [id number] [address] [place] [address], [place] [address] August, [facility] [address] [id number] [address] [place] [address], [place] [address] August, [facility] [address] [id number] [address] [place] [address], [place] [address] August, [facility] [address] [id number] [address] [place] [address], [place] [address] August, [facility] [address] [id number] [address] [place] [address], [place] [address] August, [facility] [address] [id number] [address] [place] [address], [place] [address] August, [facility] [address] [id number] [address] [place] [address], [place] [address] August, [facility] [address] [id number] [address] [place] [address], [place] [address] August, [facility] [address] [id number] [address] [place] [address], [place] [address] August, [facility] [address] [id number] [address] [place] [address], [place] [address] Jul, [facility] [address] [id number] [address] [place] [address], [place] [address] Jul, [facility] [address] [id number] [address] [place] [address], [place] [address] Jul, [facility] [address] [id number] [address] [place] [address], [place] [address] Jul, [facility] [address] [id number] [address] [place] [address], [place] [address] Jul, [facility] [address] [id number] [address] [place] [address], [place] [address] Jul, [facility] [address] [id number] [address] [place] [address], [place] [address] Jun, [facility] [address] [id number] [address] [place] [address], [place] [address] Jun, [facility] [address] [id number] [address] [place] [address], [place] [address] May, [facility] [address] [id number] [address] [place] [address], [place] [address] May, [facility] [address] [id number] [address] [place] [address], [place] [address] Apr, [facility] [address] [id number] [address] [place] [address], [place] [address] Apr, [facility] [address] [id number] [address] [place] [address], [place] [address] Apr, [facility] [address] [id number] [address] [place] [address], [place] [address] Apr, [facility] [address] [id number] [address] [place] [address], [place] [address] Apr, [facility] [address] [id number] [address] [place] [address], [place] [address] Apr, [facility] [address] [id number] [address] [place] [address], [place] [address] Apr, [facility] [address] [id number] [address] [place] [address], [place] [address] Apr, [facility] [address] [id number] [address] [place] [address], [place] [address] Apr, [facility] [address] [id number] [address] [place] [address], [place] [address] Apr, [facility] [address] [id number] [address] [place] [address], [place] [address] Apr, [facility] [address] [id number] [address] [place] [address], [place] [address] Apr, [facility] [address] [id number] [address] [place] [address], [place] [address] Apr, [facility] [address] [id number] [address] [place] [address], [place] [address] Mar, [facility] [address] [id number] [address] [place] [address], [place] [address] Mar, [facility] [address] [id number] [address] [place] [address], [place] [address] Mar, [facility] [address] [id number] [address] [place] [address], [place] [address] Mar, [facility] [address] [id number] [address] [place] [address], [place] [address] Feb, [facility] [address] [id number] [address] [place] [address], [place] [address] Feb, [facility] [address] [id number] [address] [place] [address], [place] [address] Feb, [facility] [address] [id number] [address] [place] [address], [place] [address] Feb, [facility] [address] [id number] [address] [place] [address], [place] [address] Jan, [facility] [address] [id number] [address] [place] [address], [place] [address] Jan, [facility] [address] [id number] [address] [place] [address], [place] [address] Jan, [facility] [address] [id number] [address] [place] [address], [place] [address] Jan, [facility] [address] [id number] [address] [place] [address] Jan, [facility] [address] [id number] [address] [place] [address] Jan, [facility] [address] [id number] [address] [place] [address] Jan, [facility] [address] [id number] [address] [place] [address], [place] [address] Jan, [facility] [address] [id number] [address] [place] [address], [place] [address] Jan, [facility] [address] [id number] [address] [place] [address], [place] [address] Dec, [facility] [address] [id number] [address] [place] [address] [place] [address] 16 Dec, 2012 [facility] [address] [id number] [address] [place] [address], [place] [address] 16 Dec, 2012 [facility] [address] [id number] [address] [place] [address], [place] [address] 13 Dec, 2012 [facility] [address] [id number] [address] [place] [address], [place] [address] Nov, [facility] [facility] [address] [id number] [address] [place] [address], [place] [address] Nov, [facility] [address] [id number] [address] [place] [address], [place] [address] Nov, [facility] [address] [id number] [address] [place] [address], [place] [address] Nov, [facility] [address] [id number] [address] [place] [address], [place] [address] Oct, [facility] [address] [id number] [address] [place] [address], [place] [address] Sep, [facility] [address] [id number] [address] [place] [address], [place] [address] August, [facility] [address] [id number] [address] [place] [address], [place] [address] August, [facility] [address] [id number] [address] [place] [address], [place] [address] August, [facility] [address] [id number] [address] [place] [address], [place] [address] August, [facility] [address] [id number] [address] [place] [address], [place] [address] August, [facility] [address] [id number] [address] [place] [address], [place] [address] August, [facility] [address] [id number] [address] [place] [address], [place] [address] August, [facility] [address] [id number] [address] [place] [address], [place] [address] August, [facility] [address] [id number] [address] [place] [address], [place] [address] August, [facility] [address] [id number] [address] [place] [address], [place] [address] August, [facility] [address] [id number] [address] [place] [address], [place] [address] August, [facility] [address] [id number] [address] [place] [address], [place] [address] August, [facility] [address] [id number] [address] [place] [address], [place] [address] Jul, [facility] [address] [id number] [address] [place] [address], [place] [address] Jul, [facility] [address] [id number] [address] [place] [address], [place] [address] Jul, [facility] [address] [id number] [address] [place] [address], [place] [address] Jul, [facility] [address] [id number] [address] [place] [address], [place] [address] Jul, [facility] [address] [id number] [address] [place] [address], [place] [address] Jul, [facility] [address] [id number] [address] [place] [address], [place] [address] Jul, [facility] [address] [id number] [address] [place] [address], [place] [address] Jul, [facility] [address] [id number] [address] [place] [address], [place] [address] Jul, [facility] [address] [id number] [address] [place] [address], [place] [address] Jul, [facility] [address] [id number] [address] [place] [address], [place] [address] Jul, [facility] [address] [id number] [address] [place] [address], [place] [address] Jun, [facility] [address] [id number] [address] [place] [address], [place] [address] Jun, [facility] [address] [id number] [address] [place] [address], [place] [address] Jun, [facility] [address] [id number] [address] [place] [address], [place] [address] Jun, [facility] [address] [id number] [address] [place] [address], [place] [address] May, [facility] [address] [id number] [address] [place] [address], [place] [address] May, [facility] [address] [id number] [address] [place] [address], [place] [address] 05 May, 2012 [facility] [address] [id number] [address] [place] [address], [place] [address] May, [facility] [address] [id number] [address] [place] [address], [place] [address] May, [facility] [address] [id number] [address] [place] [address], [place] [address] May, [facility] [address] [id number] [address] [place] [address], [place] [address] Apr, [facility] [address] [id number] [address] [place] [address], [place] [address] Apr, [facility] [address] [id number] [address] [place] [address], [place] [address] 30 Apr, 2012 [facility] [address] [id number] [address] [place] [address], [place] [address] Apr, [facility] [address] [id number] [address] [place] [address], [place] [address] Mar, [facility] [address] [id number] [address] [place] [address], [place] [address] 14 Mar, 2012 [facility] [address] [id number] [address] [place] [address], [place] [address] 14 Mar, 2012 [facility] [address] [id number] [address] [place] [address], [place] [address] 14 Mar, 2012 [facility] [address] [id number] [address] [place] [address], [place] [address] 14 Mar, 2012 [facility] [address] [id number] [address] [place] [address], [place] [address] 06 Mar, 2012 [facility] [address] [id number] [address] [place] [address], [place] [address] Mar, [facility] [address] [id number] [address] [place] [address], [place] [address] Feb, [facility] [address] [id number] [address] [place] [address], [place] [address] Feb, [facility] [address] [id number] [address] [place] [address], [place] [address] Feb, [facility] [address] [id number] [address] [place] [address], [place] [address] Feb, [facility] [address] [id number] [address] [place] [address], [place] [address] Jan, [facility] [address] [id number] [address] [place] [address], [place] [address] 11 Jan, 2012 [facility] [address] [id number] [address] [place] [address], [place] [address] 10 Jan, 2012 [facility] [address] [id number] [address] [place] [address], [place] [address] 10 Jan, 2012 [facility] [address] [id number] [address] [place] [address], [place] [address] 03 Jan, 2012 [facility] [address] [id number] [address] [place] [address], [place] [address] Jan, [facility] [address] [id number] [address] [place] [address], [place] [address] Dec, [facility] [address] [id number] [address] [place] [address], [place] [address] Dec, [facility] [address] [id number] [address] [place] [address], [place] [address] Nov, [facility] [address] [id number] [address] [place] [address], [place] [address] Sep, [facility] [address] [id number] [address] [place] [address], [place] [address] August, [facility] [address] [id number] [address] [place] [address], [place] [address] August, [facility] [address] [id number] [address] [place] [address], [place] [address] August, [facility] [address] [id number] [address] [place] [address], [place] [address] August, [facility] [address] [id number] [address] [place] [address], [place] [address] August, [facility] [address] [id number] [address] [place] [address], [place] [address] Jun, [facility] [address] [id number] [address] [place] [address], [place] [address] Jun, [facility] [address] [id number] [address] [place] [address], [place] [address] Apr, [facility] [address] [id number] [address] [place] [address], [place] [address] Apr, [facility] [address] [id number] [address] [place] [address], [place] [address] Mar, [facility] [address] [id number] [address] [place] [address], [place] [address] Feb, [facility] [address] [id number] [address] [place] [address] 14 Feb, 2011 [facility] [address] [id number] [address] [place] [address] 14 Feb, 2011 [facility] [address] [id number] [address] [place] [address] 17 Jan, 2011 [facility] [address] [id number] [address] [place] [address] 15 Jan, 2011 [facility] [address] [id number] [address] [place] [address] 15 Jan, 2011 [facility] [address] [id number] [address] [place] [address] 14 Jan, 2011 [facility] [address] [id number] [address] [place] [id number] 15 May, 2010 [facility] [address] [id number] [address] [place] [address] Mar, [facility] [address] [id number] [address] [place] [address] Oct, [facility] [address] [id number] [address] [place] [address] Sep, [facility] [address] [id number] [address] [place] [address] Mar, [facility] [address] [id number] [address] [place] [address] Jan, [facility] [address] [id number] [address] [place] [address] Jan, [facility] [address] [id number] [address] [place] [address] May, IMMUNIZATIONS No Known Immunizations SOCIAL HISTORY Never Assessed REASON FOR VISIT Controlled Med Refill PLAN OF CARE VITAL SIGNS MEDICATIONS Medication Instructions Dosage Frequency Start Date End Date Duration S tatus Amlodipine Besylate 5 mg Orally Once a day 1 tablet 24h 30 days Active Hydrocodone-Acetaminophen 5-325 MG Orally 3 -4 times a day prn. must last 4 weeks 1 tablet as needed Jul, 28 days Acti ve RESULTS No Results PROCEDURES No Known procedures INSTRUCTIONS MEDICATIONS ADMINISTERED No Known Medications MEDICAL (GENERAL) HISTORY Type Description Date Medical History hypertension Medical History Colposcopy with loop electro de excision of the cervix was performed 06/2012, mild squamous atypia (no definite dyplasia). Performed at [facility] Dr. Joy. Medical History Acute [...]
--- OUTSIDE RECORDS SUMMARY | 2019-11-23 05:46 | XMS REPORT ---
Author Author Liana PERRY Organization [facility] Address [address] [place] [address] Care Team Providers Care Chief Enterprise Architect Name Role Phone CHINTAN PERRY Unavailable PROBLEMS Type Condition ICD9-CM Code WBS52-US Code Onset Dates Condition S tatus SNOMED Code Problem Hematuria, unspecified type R31.9 Ac tive 76715447 Problem Abnormal glucose R73.09 Active 102 628244 Problem Anxiety F41.9 Active 91893250 Problem Neck pain M54.2 Active 46049936 Problem Essential hypertension I10 Active 34127211 Problem Rhinosinusitis J32.9 Active 64482 4004 Problem Neuroforaminal stenosis of spine M99.89 Active 471678221379 Problem Other chronic pain G89.29 Active 8 6005484 Problem Abnormal renal ultrasound R93.429 Acti ve [id number] Problem Mixed hyperlipidemia E78.2 Active 03331686 Problem Hypokalemia E87.6 Active 97157830 Problem Chronic pain due to trauma G89.21 Act juanis 872194270 Problem Seasonal allergies J30.2 Active 4 99940926 ALLERGIES No Information ENCOUNTERS Encounter Location Date Diagnosis [facility] [address] [facility] [id number] [address] [place] [phone] Oct, [facility] [address] [facility] [id number] [address] [place] [phone] Sep, [facility] [address] [facility] [id number] [address] [place] [address] Sep, Neuroforaminal stenosis of s pine M99.89 [facility] [address] [facility] [id number] [address] [place] [phone] Sep, Encounter for laboratory luisa ting for COVID-19 virus V73.89 [facility] [address] [facility] [id number] [address] [place] [phone] August, Neuroforaminal stenosis of s pine M99.89 [facility] [address] [id number] [address] [place] [address] August, Acute bacterial conjunctivit is of right eye H10.31 [facility] [address] [id number] [address] [place] [phone] August, Low back pain M54.5 ; Other chronic pain G89.29 and Dysuria R30.0 [facility] [address] [id number] [address] [place] [address] August, [facility] [address] [id number] [address] [place] [address] Jul, Neuroforaminal stenosis of s jose M99.89 [place] [id number] [id number] [address] [place] [address] Jul, Allergic conjunctivitis of b oth eyes H10.13 [facility] [address] [id number] [address] [place] [phone] Jun, Hypokalemia E87.6 [facility] [address] [id number] [address] [place] [phone] Jun, [facility] [address] [id number] [address] [place] [phone] Jun, Neuroforaminal stenosis of s pine M99.89 [facility] [address] [id number] [address] [place] [address] Jun, Lateral epicondylitis, left elbow M77.12 and Medial epicondylitis, left elbow M77.02 [facility] [address] [id number] [address] [place] [address] 16 Jun, 2019 Foraminal stenosis of lumbar region M48.061 ; Segmental dysfunction of thoracic region M99.02 ; Segmental dysfunction of lumbar region M99.03 and Segmental dysfunction of sacral region M99.04 [place] [address] [id number] [address] [place] [address] May, Left elbow pain M25.522 [facility] [address] [id number] [address] [place] [address] May, [facility] [address] [id number] [address] [place] [phone] May, Left elbow pain M25.522 [facility] [address] [id number] [address] [place] [address] May, Neuroforaminal stenosis of s pine M99.89 [facility] [address] [id number] [address] [place] [address] May, Rhinosinusitis J32.9 ; Left elbow pain M25.522 and Neck pain M54.2 [facility] [address] [id number] [address] [place] [address] 14 May, 2019 Lateral epicondylitis of lef t elbow M77.12 [facility] [address] [id number] [address] [place] [address] Apr, Neuroforaminal stenosis of s pine M99.89 [facility] [address] [facility] [id number] [address] [place] [phone] Apr, Essential hypertension I10 a nd Mixed hyperlipidemia E78.2 [facility] [address] [id number] [address] [place] [address] Mar, Neuroforaminal stenosis of s pine M99.89 [facility] [address] [id number] [address] [place] [address] Mar, Epicondylitis, lateral, left M77.12 [facility] [address] [id number] [address] [place] [phone] Mar, [facility] [address] [id number] [address] [place] [address] Mar, Neuroforaminal stenosis of s pine M99.89 [facility] [address] [facility] [id number] [address] [place] [phone] Feb, Neuroforaminal stenosis of s jose M99.89 ; Essential hypertension I10 ; Mixed hyperlipidemia E78.2 ; Encounter for immunization Z23 and Seasonal allergies J30.2 [facility] [address] [facility] [id number] [address] [place] [phone] Jan, Neuroforaminal stenosis of s pine M99.89 [facility] [address] [facility] [id number] [address] [place] [phone] Dec, Neuroforaminal stenosis of s pine M99.89 [facility] [address] [facility] [id number] [address] [place] [address] Dec, Neuroforaminal stenosis of s pine M99.89 [facility] [address] [place] [id number] [address] [place] [address] Nov, [facility] [address] [place] [id number] [address] [place] [address] Nov, Neuroforaminal stenosis of s pine M99.89 [facility] [address] [place] [id number] [address] [place] [phone] Nov, Acute non-recurrent maxillar y sinusitis J01.00 [facility] [address] [place] [id number] [address] [place] [phone] Oct, Hypokalemia E87.6 [facility] [address] [facility] [id number] [address] [place] [phone] Oct, Wasp sting, undetermined int ent, initial encounter T63.464A and Cellulitis of left lower extremity L03.116 [facility] [address] [facility] [id number] [address] [place] [phone] Oct, Neuroforaminal stenosis of s jose M99.89 [facility] [address] [place] [id number] [address] [place] [phone] Sep, [place] [address] [id number] [address] [place] [phone] Sep, [place] [address] [id number] [address] [place] [phone] 18 Sep, 2018 Routine screening for STI (s exually transmitted infection) Z11.3 [place] [address] [id number] [address] [place] [phone] 14 Sep, 2018 Routine screening for STI (s exually transmitted infection) Z11.3 ; Well woman exam with routine gynecological exam Z01.419 and Breast cancer screening Z12.39 [place] [address] [id number] [address] [place] [phone] Sep, Neuroforaminal stenosis of s pine M99.89 [place] [address] [id number] [address] [place] [address] August, Neuroforaminal stenosis of s pine M99.89 [place] [address] [id number] [address] [place] [address] August, Neuroforaminal stenosis of s pine M99.89 ; Chronic pain due to trauma G89.21 and Mixed hyperlipidemia E78.2 [place] [address] [id number] [address] [place] [phone] 16 Jul, 2018 Viral upper respiratory illn ess J06.9 and Acute non-recurrent frontal sinusitis J01.10 [place] [address] [id number] [address] [place] [id number] Jul, Congestion of nasal sinus R0 9.81 [place] [address] [id number] [address] [place] [address] Jul, Neuroforaminal stenosis of s pine M99.89 and Essential hypertension I10 [place] [address] [id number] [address] [place] [address] May, Neuroforaminal stenosis of s pine M99.89 [place] [address] [id number] [address] [place] [phone] May, [facility] [address] [id number] [address] [place] [phone] May, Congestion of nasal sinus R0 9.81 [facility] [address] [id number] [address] [place] [phone] May, [facility] [address] [id number] [address] [place] [address] Apr, Neuroforaminal stenosis of s pine M99.89 [facility] [address] [id number] [address] [place] [address] Apr, Neuroforaminal stenosis of s pine M99.89 and Chronic pain due to trauma G89.21 [facility] [address] [id number] [address] [place] [address] Mar, UTI (urinary tract infection ) N39.0 [facility] [address] [id number] [address] [place] [address] Mar, Vertigo R42 [facility] [address] [id number] [address] [place] [address] Mar, Neuroforaminal stenosis of s pine M99.89 [facility] [address] [id number] [address] [place] [phone] Feb, Extensor tendon disruption M 67.89 [facility] [address] [id number] [address] [place] [phone] Feb, Neuroforaminal stenosis of s pine M99.89 and High risk medication use Z79.899 [facility] [address] [facility] [id number] [address] [place] [phone] Jan, Hypokalemia E87.6 [facility] [address] [id number] [address] [place] [address] Jan, Flank pain R10.9 and Acute r ight-sided low back pain without sciatica M54.5 [place] [address] [address] Jan, Hypokalemia E87.6 [place] [address] [address] Jan, [place] [address] [address] Jan, URI, acute J06.9 [place] [address] [phone] 05 Jan, 2018 Neuroforaminal stenosis of s jose M99.89 [place] [address] [place] [address] 13 Dec, 2017 Lateral epicondylitis, right elbow M77.11 [place] [address] [address] 11 Dec, 2017 Allergic rhinitis due to monica rosalina, unspecified seasonality J30.1 and Allergic conjunctivitis of both eyes H10.13 [place] [address] [address] 10 Dec, 2017 Neuroforaminal stenosis of s jose M99.89 [place] [address] [address] 06 Dec, 2017 Mixed hyperlipidemia E78.2 [place] [address] [address] 05 Dec, 2017 Abnormal glucose R73.09 ; Ab normal renal ultrasound R93.429 ; Dysuria R30.0 ; Cystitis without hematuria N30.90 ; Hypokalemia E87.6 ; Mixed hyperlipidemia E78.2 and Hematuria, unspecified type R31.9 [place] [address] [address] Nov, Hypokalemia E87.6 ; Mixed hy perlipidemia E78.2 and Hematuria, unspecified type R31.9 [place] [address] [place] [address] Nov, [facility] [address] [id number] [address] [place] [phone] Nov, Hypokalemia E87.6 [facility] [address] [id number] [address] [place] [phone] Nov, [facility] [address] [id number] [address] [place] [address] Nov, Abnormal renal ultrasound R9 3.429 [place] [address] [id number] [address] [place] [address] Nov, Abnormal renal ultrasound R9 3.429 [place] [address] [id number] [address] [place] [phone] Nov, Hematuria, unspecified type R31.9 and 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 [place] [address] [id number] [address] [place] [address] Nov, Dysuria R30.0 [place] [address] [id number] [address] [place] [phone] Oct, Lateral epicondylitis, right elbow M77.11 [place] [address] [id number] [address] [place] [address] Oct, Neuroforaminal stenosis of s pine M99.89 ; Visit for TB skin test Z11.1 and Essential hypertension I10 [place] [address] [id number] [address] [place] [phone] Oct, [place] [address] [id number] [address] [place] [phone] Oct, Neuroforaminal stenosis of s pine M99.89 [facility] [address] [id number] [address] [place] [phone] Oct, Visit for TB skin test Z11.1 [place] [address] [id number] [address] [place] [phone] 05 Oct, 2017 Cystitis without hematuria N 30.90 [place] [address] [facility] [id number] [address] [place] [phone] 28 Sep, 2017 Screening breast examination Z12.39 [place] [address] [place] [id number] [address] [place] [phone] 26 Sep, 2017 Dysuria R30.0 and Cystitis w ithout hematuria N30.90 [place] [address] [place] [id number] [address] [place] [address] 14 Sep, 2017 Essential hypertension I10 a nd 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 [place] [address] [address] 04 Sep, 2017 Abnormal glucose R73.09 [place] [address] [address] August, Lateral epicondylitis, right elbow M77.11 [place] [address] [address] August, Screen for STD (sexually tra nsmitted disease) Z11.3 [place] [address] [address] August, Neuroforaminal stenosis of s pine M99.89 ; Mixed hyperlipidemia E78.2 ; Elevated fasting glucose R73.01 ; Screening mammogram, encounter for Z12.31 and Encounter for well woman exam without gynecological exam Z00.00 [place] [id number] [place] [address] August, Neuroforaminal stenosis of s pine M99.89 [place] [address] [address] August, Essential hypertension I10 ; Hypokalemia E87.6 and Mixed hyperlipidemia E78.2 [place] [address] [place] [id number] [address] [place] [phone] Jul, [place] [address] [id number] [address] [place] [address] Jul, Neuroforaminal stenosis of s jose M99.89 [facility] [address] [id number] [address] [place] [address] Jul, Lateral epicondylitis, right elbow M77.11 [facility] [address] [id number] [address] [place] [address] Jul, [facility] [address] [id number] [address] [place] [address] Jun, High ankle sprain of right l ower extremity, initial encounter S93.431A [place] [address] [id number] [address] [place] [address] Jun, Essential hypertension I10 [place] [address] [id number] [address] [place] [address] Jun, [place] [address] [id number] [address] [place] [address] Jun, [facility] [address] [id number] [address] [place] [phone] Jun, Neuroforaminal stenosis of s jose M99.89 [place] [address] [id number] [address] [place] [address] Jun, Pain of right upper extremit y M79.601 and Essential hypertension I10 [place] [address] [id number] [address] [place] [address] Jun, [facility] [address] [id number] [address] [place] [phone] Jun, Dysuria R30.0 ; Acute cystit is with hematuria N30.01 and Screen for STD (sexually transmitted disease) Z11.3 [facility] [address] [id number] [address] [place] [address] May, Chronic pain due to trauma G 89.21 [facility] [id number] [place] [address] May, Essential hypertension I10 [place] [id number] [place] [address] May, Neuroforaminal stenosis of s pine M99.89 [place] [address] [place] [id number] [address] [place] [address] Apr, Allergic reaction, initial e ncounter T78.40XA [place] [address] [address] Apr, Low back pain, unspecified b ack pain laterality, unspecified chronicity, with sciatica presence unspecified M54.5 ; Acute cystitis with hematuria N30.01 ; 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 ; Bilateral acute serous otitis media, recurrence not specified H65.03 ; Mixed hyperlipidemia E78.2 ; Essential hypertension I10 ; Immunization counseling Z71.89 and Encounter for immunization Z23 [place] [address] [address] Apr, Neck pain M54.2 [place] [id number] [place] [address] Mar, Neuroforaminal stenosis of s pine M99.89 [place] [address] [place] [id number] [address] [place] [address] Mar, Pharyngitis due to other org anism J02.8 [place] [address] [place] [id number] [address] [place] [address] Feb, Neuroforaminal stenosis of s pine M99.89 [place] [address] [place] [id number] [address] [place] [address] Feb, UTI (urinary tract infection ) N39.0 [place] [address] [place] [id number] [address] [place] [address] 07 Feb, 2017 Recent urinary tract infecti on Z87.440 ; 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 ; Neck pain M54.2 ; Chronic pain due to trauma G89.21 and Recurrent UTI N39.0 [place] [address] [id number] [address] [place] [address] Feb, [place] [address] [facility] [id number] [address] [place] [address] Jan, Neuroforaminal stenosis of s pine M99.89 [place] [address] [id number] [address] [place] [address] Dec, Neuroforaminal stenosis of s pine M99.89 [place] [address] [id number] [address] [place] [address] 18 Dec, 2016 Acute seasonal allergic rhin itis due to pollen J30.1 [place] [address] [facility] [id number] [address] [place] [address] 08 Dec, 2016 [place] [address] [id number] [address] [place] [address] 08 Dec, 2016 Acute seasonal allergic rhin itis, unspecified trigger J30.2 ; Allergic conjunctivitis of both eyes H10.13 and Dysfunction of both eustachian tubes H69.83 [place] [address] [id number] [address] [place] [address] 07 Dec, 2016 [place] [address] [id number] [address] [place] [address] Dec, Nevus D22.9 [place] [address] [id number] [address] [place] [address] Nov, Chronic pain due to trauma G 89.21 and 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 [place] [address] [id number] [address] [place] [address] Nov, Neuroforaminal stenosis of s pine M99.89 ; Essential hypertension I10 ; Mixed hyperlipidemia E78.2 ; Hypokalemia E87.6 ; Neck pain M54.2 and Nevus D22.9 [facility] [address] [id number] [address] [place] [address] Oct, Neuroforaminal stenosis of s pine M99.89 [facility] [address] [id number] [address] [place] [address] Sep, Neuroforaminal stenosis of s pine M99.89 [facility] [address] [id number] [address] [place] [phone] Sep, [facility] [address] [id number] [address] [place] [phone] August, [facility] [address] [id number] [address] [place] [phone] August, Neck pain M54.2 and Neurofor aminal stenosis of spine M99.89 [facility] [address] [id number] [address] [place] [address] August, Routine gynecological examin ation Z01.419 and Screening breast examination Z12.39 [facility] [address] [id number] [address] [place] [phone] Jul, [facility] [address] [id number] [address] [place] [phone] Jul, [facility] [address] [id number] [address] [place] [phone] Jul, Neuroforaminal stenosis of s pine M99.89 [facility] [address] [id number] [address] [place] [address] Jul, [facility] [address] [id number] [address] [place] [address] Jul, Neuroforaminal stenosis of l umbar 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 [facility] [address] [id number] [address] [place] [address] Jul, [facility] [address] [id number] [address] [place] [phone] Jul, [facility] [address] [facility] [id number] [address] [place] [phone] Jun, Neuroforaminal stenosis of ayla garcia M99.89 [facility] [address] [facility] [id number] [address] [place] [phone] Jun, Uterine leiomyoma, unspecifi ed location D25.9 and Allergic reaction caused by a drug, initial encounter T78.40XA [facility] [address] [facility] [id number] [address] [place] [phone] Jun, [facility] [address] [facility] [id number] [address] [place] [phone] May, UTI symptoms R39.9 and Pain of right sacroiliac joint M53.3 [place] [address] [address] [place] [id number] [address] [place] [phone] May, Neuroforaminal stenosis of ayla garcia M99.89 [place] [address] [address] [place] [id number] [address] [place] [phone] May, [place] [id number] [facility] [id number] [address] [place] [phone] May, Acute mucoid otitis media of left ear H65.112 and Acute non- recurrent maxillary sinusitis J01.00 [place] [address] [address] [place] [id number] [address] [place] [phone] May, Acute bacterial conjunctivit is of both eyes H10.33 ; Left arm pain M79.602 and Hypokalemia E87.6 [facility] [address] [facility] [id number] [address] [place] [phone] Apr, [place] [address] [address] [place] [id number] [address] [place] [phone] Apr, Neuroforaminal stenosis of ayla garcia M99.89 ; Neck pain M54.2 ; Chronic pain due to trauma G89.21 ; Mixed hyperlipidemia E78.2 ; Essential hypertension I10 and Hypokalemia E87.6 [facility] [address] [id number] [address] [place] [phone] Mar, Oral candidiasis B37.0 ; Nathaniel roforaminal stenosis of spine M99.89 ; Neck pain M54.2 and Chronic pain due to trauma G89.21 [facility] [address] [id number] [address] [place] [phone] Feb, [facility] [address] [id number] [address] [place] [phone] Feb, [facility] [address] [id number] [address] [place] [phone] Feb, UTI (urinary tract infection ) N39.0 [facility] [address] [id number] [address] [place] [phone] Feb, Dysuria R30.0 [facility] [address] [id number] [address] [place] [address] [id number] Feb, Dysuria R30.0 [facility] [address] [id number] [address] [place] [address] Feb, Neuroforaminal stenosis of s pine M99.89 ; Neck pain M54.2 ; Essential hypertension I10 ; Chronic pain due to trauma G89.21 ; Dysuria R30.0 ; Abnormal MRI, shoulder R93.8 and Acute cystitis without hematuria N30.00 [facility] [address] [id number] [address] [place] [address] Jan, [facility] [address] [id number] [address] [place] [phone] Jan, [facility] [address] [id number] [address] [place] [phone] Jan, [facility] [address] [id number] [address] [place] [address] Jan, Abnormal MRI R93.8 [facility] [address] [id number] [address] [place] [id number] 29 Dec, 2015 [facility] [address] [id number] [address] [place] [id number] 15 Dec, 2015 Acute pain of left shoulder M25.512 [facility] [address] [id number] [address] [place] [phone] 09 Dec, 2015 [facility] [address] [id number] [address] [place] [id number] 08 Dec, 2015 [facility] [address] [id number] [address] [place] [id number] 07 Dec, 2015 Acute pain of left shoulder M25.512 [facility] [address] [id number] [address] [place] [id number] 23 Nov, 2015 [facility] [address] [id number] [address] [place] [id number] 16 Nov, 2015 Neuroforaminal stenosis of s pine M99.89 ; Neck pain M54.2 ; Abnormal mammogram R92.8 ; Essential hypertension I10 and Chronic pain due to trauma G89.21 [facility] [address] [id number] [address] [place] [phone] Nov, [facility] [address] [id number] [address] [place] [address] Oct, Acute stress disorder F43.0 [facility] [address] [id number] [address] [place] [phone] Oct, [facility] [address] [id number] [address] [place] [phone] Oct, [facility] [address] [id number] [address] [place] [id number] 05 Oct, 2015 [facility] [address] [id number] [address] [place] [phone] Sep, [facility] [address] [id number] [address] [place] [phone] August, [facility] [address] [id number] [address] [place] [address] Jul, Neuroforaminal stenosis of s pine M99.89 ; Neck pain M54.2 ; Abnormal mammogram R92.8 and Essential hypertension I10 [facility] [address] [id number] [address] [place] [id number] Jul, [facility] [address] [id number] [address] [place] [phone] Jul, [facility] [address] [id number] [address] [place] [id number] Jul, Abnormal mammogram R92.8 [facility] [address] [id number] [address] [place] [phone] Jul, [facility] [address] [id number] [address] [place] [address] Jul, UTI (urinary tract infection ) N39.0 [facility] [address] [id number] [address] [place] [address] Jul, Dysuria R30.0 [facility] [address] [id number] [address] [place] [phone] Jun, [facility] [address] [id number] [address] [place] [phone] Jun, [facility] [address] [id number] [address] [place] [id number] Jun, Hypokalemia E87.6 and Hematu martina R31.9 [facility] [address] [id number] [address] [place] [id number] Jun, Hypokalemia E87.6 [facility] [address] [id number] [address] [place] [phone] Jun, [facility] [address] [id number] [address] [place] [id number] 18 Jun, 2015 Hypokalemia E87.6 [facility] [address] [address] Jun, Hypokalemia E87.[address] [address] 15 Jun, 2015 Neuroforaminal stenosis of s pine M99.89 ; Hypokalemia E87.6 ; Neck pain M54.2 ; Essential hypertension I10 ; Mixed hyperlipidemia E78.2 and Screening breast examination Z12.[address] [address] 08 Jun, 2015 Dysuria R30.0 ; UTI (urinary tract infection) N39.0 and Hematuria R31.[address] [address] May, [address] [address] 18 May, 2015 High risk sexual behavior Z7 2.51 ; Hypokalemia E87.6 ; Neuroforaminal stenosis of spine M99.89 ; Neck pain M54.2 ; Essential hypertension I10 ; Mixed hyperlipidemia E78.2 ; STD exposure Z20.2 and Concern about STD in female without diagnosis Z71.[address] [address] 16 May, 2015 Neuroforaminal stenosis of s pine M99.89 ; Neck pain M54.2 ; Hypokalemia E87.6 ; Essential hypertension I10 and Mixed hyperlipidemia E78.2 [facility] [facility] [id number] [address] [place] [address] 11 May, 2015 [facility] [address] [address] 08 May, 2015 High risk sexual behavior Z7 2.51 ; STD exposure Z20.2 and Concern about STD in female without diagnosis Z71.[address] [address] May, [facility] [address] [address] Apr, Neuroforaminal stenosis of ayla garcia M99.89 ; Mixed hyperlipidemia E78.2 ; Essential hypertension I10 and Hypokalemia E87.6 [facility] [facility] [address] [address] Mar, [facility] [address] [address] Mar, Hypokalemia E87.6 [facility] [address] [address] Mar, Neuroforaminal stenosis of ayla garcia M99.89 ; Mixed hyperlipidemia E78.2 ; Neck pain M54.2 ; Essential hypertension I10 ; Abnormal fasting glucose R73.09 ; Hypokalemia E87.6 and Constipation K59.00 [place] [facility] [address] [address] Feb, Neuroforaminal stenosis of ayla garcia M99.89 ; Mixed hyperlipidemia E78.2 ; Neck pain M54.2 ; Essential hypertension I10 ; Abnormal fasting glucose R73.09 ; Hypokalemia E87.6 and Constipation K59.00 [place] [address] [address] Feb, Elevated fasting blood sugar R73.01 [place] [address] [address] Feb, Elevated fasting blood sugar R73.01 [facility] [address] [address] Feb, Hair loss L65.9 [facility] [address] [address] Feb, Sinusitis J32.9 ; Essential hypertension I10 and Hair loss L65.9 [facility] [address] [address] Jan, [facility] [address] [id number] [address] [place] [address] Jan, Essential hypertension I10 ; Neuroforaminal stenosis of spine M99.89 ; Neck pain M54.2 ; Mixed hyperlipidemia E78.2 and Anxiety F41.9 [facility] [address] [id number] [address] [place] [address] Jan, [facility] [address] [id number] [address] [place] [address] Jan, Mixed hyperlipidemia E78.2 ; Essential (primary) hypertension I10 ; Strain of muscle, fascia and tendon at neck level, subsequent encounter S16.1XXD and Tension-type headache, unspecified, not intractable G44.209 [facility] [address] [id number] [address] [place] [address] Dec, Lumbar back pain 724.2 and N euroforaminal stenosis of spine 724.00 [facility] [address] [id number] [address] [place] [phone] Nov, [facility] [address] [id number] [address] [place] [address] Nov, Lumbar back pain 724.2 and N euroforaminal stenosis of spine 724.00 [facility] [address] [id number] [address] [place] [address] Nov, Edema 782.3 ; Lumbar back pa in 724.2 ; Essential hypertension, benign 401.1 ; Hyperlipemia 272.4 ; Neuroforaminal stenosis of 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.00 and Post-concussion headache 339.20 [facility] [address] [id number] [address] [place] [address] Nov, [facility] [address] [id number] [address] [place] [id number] Nov, [facility] [address] [id number] [address] [place] [id number] Oct, Essential hypertension, sheridan gn 401.1 [place] [address] [id number] [address] [place] [address] Oct, Edema 782.3 ; Lumbar back pa in 724.2 ; Essential hypertension, benign 401.1 ; Hyperlipemia 272.4 ; Neuroforaminal stenosis of 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.00 and Post-concussion headache 339.20 [place] [address] [id number] [address] [place] [address] Oct, [place] [address] [id number] [address] [place] [address] Oct, Edema 782.3 [place] [address] [address] [facility] [id number] [address] [place] [address] Oct, Lumbar back pain 724.2 [place] [address] [address] [facility] [id number] [address] [place] [phone] Oct, Cervicalgia 723.1 ; Lumbar b ack pain 724.2 and High risk medication use V58.69 [place] [address] [id number] [address] [place] [address] Sep, [place] [address] [id number] [address] [place] [address] Sep, Lumbar strain 847.2 [place] [address] [address] [facility] [id number] [address] [place] [address] August, Edema 782.3 and Eustachian t ube dysfunction 381.81 [place] [address] [id number] [address] [place] [id number] August, [place] [address] [address] [facility] [id number] [address] [place] [address] August, Eustachian tube dysfunction 381.81 [place] [address] [address] [facility] [id number] [address] [place] [address] Jul, Otalgia 388.70 and Otitis me jonathon 382.9 [facility] [address] [id number] [address] [place] [address], [place] [address] Jul, [facility] [address] [id number] [address] [place] [address], [place] [address] Jul, [facility] [address] [id number] [address] [place] [address], [place] [address] Jul, [facility] [address] [id number] [address] [place] [address], [place] [address] 14 Jul, 2014 [facility] [address] [id number] [address] [place] [address], [place] [address] Jul, [facility] [address] [id number] [address] [place] [address], [place] [address] Jun, [facility] [address] [id number] [address] [place] [address], [place] [address] Jun, [facility] [address] [id number] [address] [place] [id number] 16 Jun, 2014 [facility] [address] [id number] [address] [place] [address], [place] [address] May, [facility] [address] [id number] [address] [place] [phone] May, [facility] [address] [id number] [address] [place] [address], [place] [address] May, [facility] [address] [id number] [address] [place] [phone] May, [facility] [address] [id number] [address] [place] [address], [place] [address] May, [facility] [address] [id number] [address] [place] [phone] May, [facility] [address] [id number] [address] [place] [address], [place] [address] May, [facility] [address] [id number] [address] [place] [address], [place] [address] May, [facility] [address] [id number] [address] [place] [address], [place] [address] May, [facility] [address] [id number] [address] [place] [address], [place] [address] May, [facility] [address] [id number] [address] [place] [address], [place] [address] Apr, [facility] [address] [id number] [address] [place] [address], [place] [address] Apr, [facility] [address] [id number] [address] [place] [address], [place] [address] Apr, [facility] [address] [id number] [address] [place] [address], [place] [address] Apr, [facility] [address] [id number] [address] [place] [address], [place] [address] Apr, [facility] [address] [id number] [address] [place] [address], [place] [address] Apr, [facility] [address] [id number] [address] [place] [address], [place] [address] Apr, [facility] [address] [id number] [address] [place] [address], [place] [address] Apr, [facility] [address] [id number] [address] [place] [address], [place] [address] Apr, [facility] [address] [id number] [address] [place] [address], [place] [address] Apr, [facility] [address] [id number] [address] [place] [address], [place] [address] Apr, [facility] [address] [id number] [address] [place] [address], [place] [address] Apr, [facility] [address] [id number] [address] [place] [address], [place] [address] Apr, [facility] [address] [id number] [address] [place] [address], [place] [address] Apr, [facility] [address] [id number] [address] [place] [address], [place] [address] Apr, [facility] [address] [id number] [address] [place] [address], [place] [address] Mar, [facility] [address] [id number] [address] [place] [address], [place] [address] Mar, [facility] [address] [id number] [address] [place] [address], [place] [address] Mar, [facility] [address] [id number] [address] [place] [address], [place] [address] Mar, [facility] [address] [id number] [address] [place] [address], [place] [address] Feb, [facility] [address] [id number] [address] [place] [address], [place] [address] Feb, [facility] [address] [id number] [address] [place] [address], [place] [address] Feb, [facility] [address] [id number] [address] [place] [address] Feb, [facility] [address] [id number] [address] [place] [address] Jan, [facility] [address] [id number] [address] [place] [address] Jan, [facility] [address] [id number] [address] [place] [address], [place] [address] Jan, [facility] [address] [id number] [address] [place] [address], [place] [address] Jan, [facility] [address] [id number] [address] [place] [address] Jan, [facility] [address] [id number] [address] [place] [phone] Jan, [facility] [address] [id number] [address] [place] [address], [place] [address] Jan, [facility] [address] [id number] [address] [place] [address], [place] [address] Jan, [facility] [address] [id number] [address] [place] [address], [place] [address] Dec, [facility] [address] [id number] [address] [place] [address], [place] [address] Dec, [facility] [address] [id number] [address] [place] [address], [place] [address] Dec, [facility] [address] [id number] [address] [place] [address], [place] [address] Dec, [facility] [address] [id number] [address] [place] [address], [place] [address] Oct, [facility] [address] [id number] [address] [place] [address], [place] [address] Oct, [facility] [address] [id number] [address] [place] [address], [place] [address] Oct, [facility] [address] [id number] [address] [place] [address], [place] [address] Oct, [facility] [address] [id number] [address] [place] [address], [place] [address] Oct, [facility] [address] [id number] [address] [place] [address], [place] [address] Oct, [facility] [address] [id number] [address] [place] [address], [place] [address] Oct, [facility] [address] [id number] [address] [place] [address], [place] [address] Oct, [facility] [address] [id number] [address] [place] [address], [place] [address] Sep, [facility] [address] [id number] [facility] [place] [address] Sep, [facility] [address] [id number] [facility] [place] [address] Sep, [facility] [address] [id number] [facility] [place] [address] Sep, [facility] [address] [id number] [facility] [place] [address] Sep, [facility] [address] [id number] [facility] [place] [address] Sep, [facility] [address] [id number] [address] [place] [address], [place] [address] Sep, [facility] [address] [id number] [address] [place] [address], [place] [address] Sep, [facility] [address] [id number] [address] [place] [address], [place] [address] Sep, [facility] [address] [id number] [address] [place] [address], [place] [address] Sep, [facility] [address] [id number] [address] [place] [address], [place] [address] August, [facility] [address] [id number] [address] [place] [address], [place] [address] August, [facility] [address] [id number] [address] [place] [address], [place] [address] August, [facility] [address] [id number] [address] [place] [address], [place] [address] August, [facility] [address] [id number] [address] [place] [address], [place] [address] August, [facility] [address] [id number] [address] [place] [address], [place] [address] August, [facility] [address] [id number] [address] [place] [address] [address] August, [facility] [address] [id number] [address] [place] [address], [place] [address] August, [facility] [address] [id number] [address] [place] [address], [place] [address] August, [facility] [address] [id number] [address] [place] [address], [place] [address] August, [facility] [address] [id number] [address] [place] [address], [place] [address] August, [facility] [address] [id number] [address] [place] [address], [place] [address] August, [facility] [address] [id number] [address] [place] [address], [place] [id number] Jul, [facility] [address] [id number] [address] [place] [address], [place] [id number] Jul, [facility] [address] [id number] [address] [place] [address], [place] [id number] Jul, [facility] [address] [id number] [address] [place] [address], [place] [id number] Jul, [facility] [address] [id number] [address] [place] [address], [place] [id number] Jul, [facility] [address] [id number] [address] [place] [address], [place] [id number] Jul, [facility] [address] [id number] [address] [place] [address], [place] [id number] Jun, [facility] [address] [id number] [address] [place] [address], [place] [id number] Jun, [facility] [address] [id number] [address] [place] [address], [place] [id number] May, [facility] [address] [id number] [address] [place] [address], [place] [id number] May, [facility] [address] [id number] [address] [place] [address], [place] [id number] Apr, [facility] [address] [id number] [address] [place] [address], [place] [id number] Apr, [facility] [address] [id number] [address] [place] [address], [place] [id number] Apr, [facility] [address] [id number] [address] [place] [address], [place] [id number] Apr, [facility] [address] [id number] [address] [place] [address], [place] [id number] Apr, [facility] [address] [id number] [address] [place] [address], [place] [id number] Apr, [facility] [address] [id number] [address] [place] [address], [place] [address] Apr, [facility] [address] [id number] [address] [place] [address], [place] [id number] Apr, [facility] [address] [id number] [address] [place] [address], [place] [id number] Apr, [facility] [address] [id number] [address] [place] [address], [place] [id number] Apr, [facility] [address] [id number] [address] [place] [address], [place] [id number] Apr, [facility] [address] [id number] [address] [place] [address], [place] [id number] Apr, [facility] [address] [id number] [address] [place] [address], [place] [id number] Apr, [facility] [address] [id number] [address] [place] [address], [place] [id number] Mar, [facility] [address] [id number] [address] [place] [address], [place] [id number] Mar, [facility] [address] [id number] [address] [place] [address], [place] [id number] Mar, [facility] [address] [id number] [address] [place] [address], [place] [id number] Mar, [facility] [address] [id number] [address] [place] [address], [place] [id number] Feb, [facility] [address] [id number] [address] [place] [address], [place] [id number] Feb, [facility] [address] [id number] [address] [place] [address], [place] [id number] Feb, [facility] [address] [id number] [address] [place] [address], [place] [id number] Feb, [facility] [address] [id number] [address] [place] [address], [place] [id number] Jan, [facility] [address] [id number] [address] [place] [address], [place] [id number] Jan, [facility] [address] [id number] [address] [place] [id number] Jan, [facility] [address] [id number] [address] [place] [address], [place] [id number] Jan, [facility] [address] [id number] [address] [place] [id number] Jan, [facility] [address] [id number] [address] [place] [id number] Jan, [facility] [address] [id number] [address] [place] [id number] Jan, [facility] [address] [id number] [address] [place] [id number] Jan, [facility] [address] [id number] [address] [place] [address] [id number] Jan, [facility] [address] [id number] [address] [place] [id number] Dec, [facility] [address] [id number] [address] [place] [id number] 16 Dec, 2012 [facility] [address] [id number] [address] [place] [address], [place] [address] 16 Dec, 2012 [facility] [address] [id number] [address] [place] [address], [place] [id number] 13 Dec, 2012 [facility] [address] [id number] [address] [place] [address], [place] [address] Nov, [facility] [address] [id number] [address] [place] [address], [place] [address] Nov, [facility] [address] [id number] [address] [place] [address], [place] [id number] Nov, [facility] [address] [id number] [address] [place] [address], [place] [address] Nov, [facility] [address] [id number] [address] [place] [address], [place] [id number] Oct, [facility] [address] [id number] [address] [place] [address], [place] [id number] Sep, [facility] [address] [id number] [address] [place] [address], [place] [address] August, [facility] [address] [id number] [address] [place] [address], [place] [id number] August, [facility] [address] [id number] [address] [place] [address], [place] [address] August, [facility] [address] [id number] [address] [place] [address], [place] [address] August, [facility] [address] [id number] [address] [place] [address], [place] [address] August, [facility] [address] [id number] [address] [place] [address], [place] [id number] August, [facility] [address] [id number] [address] [place] [address], [place] [address] August, [facility] [address] [id number] [address] [place] [address], [place] [id number] August, [facility] [address] [id number] [address] [place] [address], [place] [address] August, [facility] [address] [id number] [address] [place] [address], [place] [address] August, [facility] [address] [id number] [address] [place] [address], [place] [address] August, [facility] [address] [id number] [address] [place] [address], [place] [address] August, [facility] [address] [id number] [address] [place] [address], [place] [address] Jul, [facility] [address] [id number] [address] [place] [address], [place] [address] Jul, [facility] [address] [id number] [address] [place] [address], [place] [address] Jul, [facility] [address] [id number] [address] [place] [address], [place] [address] Jul, [facility] [address] [id number] [address] [place] [address], [place] [id number] Jul, [facility] [address] [id number] [address] [place] [address], [place] [address] Jul, [facility] [address] [id number] [address] [place] [address], [place] [id number] Jul, [facility] [address] [id number] [address] [place] [address], [place] [address] Jul, [facility] [address] [id number] [address] [place] [address], [place] [address] Jul, [facility] [address] [id number] [address] [place] [address], [place] [address] Jul, [facility] [address] [id number] [address] [place] [address], [place] [address] Jul, [facility] [address] [id number] [address] [place] [address], [place] [address] Jun, [facility] [address] [id number] [address] [place] [address], [place] [address] Jun, [facility] [address] [id number] [address] [place] [address], [place] [address] Jun, [facility] [address] [id number] [address] [place] [address], [place] [address] Jun, [facility] [address] [id number] [address] [place] [address], [place] [address] May, [facility] [address] [id number] [address] [place] [address], [place] [address] May, [facility] [address] [id number] [address] [place] [address], [place] [address] May, [facility] [address] [id number] [address] [place] [address], [place] [address] May, [facility] [address] [id number] [address] [place] [address], [place] [address] May, [facility] [address] [id number] [address] [place] [address], [place] [address] May, [facility] [address] [id number] [address] [place] [address], [place] [address] Apr, [facility] [address] [id number] [address] [place] [address], [place] [address] Apr, [facility] [address] [id number] [address] [place] [address], [place] [address] Apr, [facility] [address] [id number] [address] [place] [address], [place] [address] Apr, [facility] [address] [id number] [address] [place] [address], [place] [address] Mar, [facility] [address] [id number] [address] [place] [address], [place] [id number] 14 Mar, 2012 [facility] [address] [id number] [address] [place] [address], [place] [address] 14 Mar, 2012 [facility] [address] [id number] [address] [place] [address], [place] [address] 14 Mar, 2012 [facility] [address] [id number] [address] [place] [address], [place] [address] Mar, [facility] [address] [id number] [address] [place] [address], [place] [address] Mar, [facility] [address] [id number] [address] [place] [address], [place] [address] Mar, [facility] [address] [id number] [address] [place] [address], [place] [address] Feb, [facility] [address] [id number] [address] [place] [address], [place] [id number] Feb, [facility] [address] [id number] [address] [place] [address], [place] [address] Feb, [facility] [address] [id number] [address] [place] [address], [place] [address] Feb, [facility] [address] [id number] [address] [place] [address], [place] [address] Jan, [facility] [address] [id number] [address] [place] [address], [place] [address] Jan, [facility] [address] [id number] [address] [place] [address], [place] [address] Jan, [facility] [address] [id number] [address] [place] [address], [place] [address] Jan, [facility] [address] [id number] [address] [place] [address], [place] [address] Jan, [facility] [address] [id number] [address] [place] [address], [place] [address] Jan, [facility] [address] [id number] [address] [place] [address], [place] [address] Dec, [facility] [address] [id number] [address] [place] [address], [place] [address] Dec, [facility] [address] [id number] [address] [place] [address], [place] [id number] Nov, [facility] [address] [id number] [address] [place] [address], [place] [address] Sep, [facility] [address] [id number] [address] [place] [address], [place] [address] August, [facility] [address] [id number] [address] [place] [address], [place] [address] August, [facility] [address] [id number] [address] [place] [address], [place] [address] August, [facility] [address] [id number] [address] [place] [address], [place] [address] August, [facility] [address] [id number] [address] [place] [address], [place] [address] August, [facility] [address] [id number] [address] [place] [address], [place] [address] Jun, [facility] [address] [id number] [address] [place] [address], [place] [address] Jun, [facility] [address] [id number] [address] [place] [address], [place] [address] Apr, [facility] [address] [id number] [address] [place] [address], [place] [address] Apr, [facility] [address] [id number] [address] [place] [address], [place] [address] Mar, [facility] [address] [id number] [address] [place] [address], [place] [address] Feb, [facility] [address] [id number] [address] [place] [id number] 14 Feb, 2011 [facility] [address] [id number] [address] [place] [id number] 14 Feb, 2011 [facility] [address] [id number] [address] [place] [id number] 17 Jan, 2011 [facility] [address] [id number] [address] [place] [id number] 15 Jan, 2011 [facility] [address] [id number] [address] [place] [id number] 15 Jan, 2011 [facility] [address] [id number] [address] [place] [id number] 14 Jan, 2011 [facility] [address] [id number] [address] [place] [id number] 15 May, 2010 [facility] [address] [id number] [address] [place] [id number] Mar, [facility] [address] [id number] [address] [place] [id number] Oct, [facility] [address] [id number] [address] [place] [id number] Sep, [facility] [address] [id number] [address] [place] [id number] Mar, [facility] [address] [id number] [address] [place] [id number] Jan, [facility] [address] [id number] [address] [place] [id number] Jan, [facility] [address] [id number] [address] [place] [id number] May, IMMUNIZATIONS No Known Immunizations SOCIAL HISTORY Never Assessed REASON FOR VISIT PLAN OF CARE VITAL SIGNS Height 62 in 2012-11-21 Weight 179.2 lbs 2012-11-21 Temperature 97.6 degrees Fahrenheit 2012-11-21 Heart Rate 80 bpm 2012-11-21 Respiratory Rate 18 2012-11-21 Blood pressure systolic 146 mmHg 2012-11-21 Blood pressure diastolic 80 mmHg 2012-11-21 MEDICATIONS Unknown Medications RESULTS No Results PROCEDURES [...]
--- OUTSIDE RECORDS SUMMARY | 2019-11-23 05:47 | XMS REPORT ---
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 Active 515958254513 Problem Neck pain M54.2 Active 46522412 Problem Chronic pain due to trauma G89.21 Act juanis [id number] Problem Hematuria, unspecified type R31.9 Ac tive 80125822 Problem Seasonal allergies J30.2 Active 4 49098093 Problem Abnormal glucose R73.09 Active 102 476026 Problem Anxiety F41.9 Active 38394026 Problem Essential hypertension I10 Active 76502082 Problem Mixed hyperlipidemia E78.2 Active 21227010 Problem Hypokalemia E87.6 Active 96550060 ALLERGIES No Information ENCOUNTERS Encounter Location Date Diagnosis [place] [address] [address] 14 May, 2019 [place] [address] [address] Apr, Neuroforaminal stenosis of spine M99.89 [place] [address] [address] Apr, Essential hypertension I10 and Mixed hyp erlipidemia E78.2 [place] [address] [address] Mar, Neuroforaminal stenosis of spine M99.89 [place] [address] [address] Mar, Epicondylitis, lateral, left M77.12 [facility] [address] [address] Mar, [place] [address] [address] Mar, Neuroforaminal stenosis of spine M99.89 [facility] [address] [address] Feb, Neuroforaminal stenosis of spine M99.89 ; Essential hypertension I10 ; Mixed hyperlipidemia E78.2 ; Encounter for immunization Z23 and Seasonal allergies J30.2 [place] [address] [address] Jan, Neuroforaminal stenosis of spine M99.89 [place] [address] [address] Dec, Neuroforaminal stenosis of spine M99.89 [place] [address] [address] Dec, Neuroforaminal stenosis of spine M99.89 [place] [address] [address] Nov, [place] [address] [address] Nov, Neuroforaminal stenosis of spine M99.89 [place] [address] [address] Nov, Acute non-recurrent maxillary sinusitis J01.00 [facility] [address] [address] Oct, Hypokalemia E87.6 [facility] [address] [facility] [id number] [address] [place] [address] Oct, Wasp sting, undetermined int ent, initial encounter T63.464A and Cellulitis of left lower extremity L03.116 [place] [address] [address] Oct, Neuroforaminal stenosis of spine M99.89 [place] [address] [address] Sep, [place] [address] [address] Sep, [place] [address] [address] 18 Sep, 2018 Routine screening for STI (sexually veronica smitted infection) Z11.3 [place] [address] [address] 14 Sep, 2018 Routine screening for STI (sexually veronica smitted infection) Z11.3 ; Well woman exam with routine gynecological exam Z01.419 and Breast cancer screening Z12.39 [place] [address] [address] 10 Sep, 2018 Neuroforaminal stenosis of spine M99.89 [place] [address] [address] August, Neuroforaminal stenosis of spine M99.89 [place] [address] [address] August, Neuroforaminal stenosis of spine M99.89 ; Chronic pain due to trauma G89.21 and Mixed hyperlipidemia E78.2 [place] [address] [address] Jul, Viral upper respiratory illness J06.9 an d Acute non-recurrent frontal sinusitis J01.10 [place] [address] [address] Jul, Congestion of nasal sinus R09.81 [place] [address] [address] Jul, Neuroforaminal stenosis of spine M99.89 and Essential hypertension I10 [place] [address] [address] May, Neuroforaminal stenosis of spine M99.89 [facility] [address] [address] May, [facility] [address] [address] May, Congestion of nasal sinus R09.81 [facility] [address] [address] May, [facility] [address] [address] Apr, Neuroforaminal stenosis of spine M99.89 [place] [address] [address] Apr, Neuroforaminal stenosis of spine M99.89 and Chronic pain due to trauma G89.21 [place] [address] [address] Mar, UTI (urinary tract infection) N39.0 [place] [address] [address] Mar, Vertigo R42 [place] [address] [address] Mar, Neuroforaminal stenosis of spine M99.89 [place] [address] [address] Feb, Extensor tendon disruption M67.89 [place] [address] [address] Feb, Neuroforaminal stenosis of spine M99.89 and High risk medication use Z79.899 [place] [address] [address] Jan, Hypokalemia E87.6 [place] [address] [address] Jan, Flank pain R10.9 and Acute right-sided l ow back pain without sciatica M54.5 [place] [address] [address] Jan, Hypokalemia E87.6 [place] [address] [address] Jan, [place] [address] [address] Jan, URI, acute J06.9 [place] [address] [address] Jan, Neuroforaminal stenosis of spine M99.89 [place] [address] [address] 13 Dec, 2017 Lateral epicondylitis, right elbow M77.1 1 [place] [address] [address] 11 Dec, 2017 Allergic rhinitis due to pollen, unspeci fied seasonality J30.1 and Allergic conjunctivitis of both eyes H10.13 [place] [address] [address] 10 Dec, 2017 Neuroforaminal stenosis of spine M99.89 [place] [address] [address] 06 Dec, 2017 Mixed hyperlipidemia E78.2 [place] [address] [address] 05 Dec, 2017 Abnormal glucose R73.09 ; Abnormal renal ultrasound R93.429 ; Dysuria R30.0 ; Cystitis without hematuria N30.90 ; Hypokalemia E87.6 ; Mixed hyperlipidemia E78.2 and Hematuria, unspecified type R31.9 [place] [address] [address] Nov, Hypokalemia E87.6 ; Mixed hyperlipidemia E78.2 and Hematuria, unspecified type R31.9 [place] [address] [address] Nov, [place] [address] [place] [id number] Nov, Hypokalemia E87.6 [place] [address] [address] Nov, [facility] [address] [address] Nov, Abnormal renal ultrasound R93.429 [place] [address] [address] Nov, Abnormal renal ultrasound R93.429 [place] [address] [address] Nov, Hematuria, unspecified type R31.9 and Ne uroforaminal stenosis of spine M99.89 [place] [address] [address] Nov, Dysuria R30.0 [place] [address] [address] Oct, Lateral epicondylitis, right elbow M77.1 1 [place] [address] [address] Oct, Neuroforaminal stenosis of spine M99.89 ; Visit for TB skin test Z11.1 and Essential hypertension I10 [place] [address] [address] Oct, [place] [address] [address] Oct, Neuroforaminal stenosis of spine M99.89 [place] [address] [address] Oct, Visit for TB skin test Z11.1 [place] [address] [address] 05 Oct, 2017 Cystitis without hematuria N30.90 [place] [address] [address] Sep, Screening breast examination Z12.[address] [address] Sep, Dysuria R30.0 and Cystitis without hemat uria N30.90 [place] [address] [address] Sep, Essential hypertension I10 and Neurofora ingrid stenosis of spine M99.[address] [address] Sep, Abnormal glucose R73.[address] [address] August, Lateral epicondylitis, right elbow M77.[address] [address] August, Screen for STD (sexually transmitted dis ease) Z11.[address] [address] August, Neuroforaminal stenosis of spine M99.89 ; Mixed hyperlipidemia E78.2 ; Elevated fasting glucose R73.01 ; Screening mammogram, encounter for Z12.31 and Encounter for well woman exam without gynecological exam Z00.[address] [address] August, Neuroforaminal stenosis of spine M99.[address] [address] August, Essential hypertension I10 ; Hypokalemia E87.6 and Mixed hyperlipidemia E78.[address] [address] Jul, [address] [address] Jul, Neuroforaminal stenosis of spine M99.[address] [address] Jul, Lateral epicondylitis, right elbow M77.[address] [address] Jul, [place] [address] [address] Jun, High ankle sprain of right lower extremi ty, initial encounter S93.431A [place] [address] [address] Jun, Essential hypertension I10 [place] [address] [address] Jun, [place] [address] [address] Jun, [place] [address] [address] Jun, Neuroforaminal stenosis of spine M99.89 [place] [address] [address] Jun, Pain of right upper extremity M79.601 an d Essential hypertension I10 [place] [address] [address] Jun, [place] [address] [address] Jun, Dysuria R30.0 ; Acute cystitis with keturah turia N30.01 and Screen for STD (sexually transmitted disease) Z11.3 [place] [address] [address] May, Chronic pain due to trauma G89.21 [place] [address] [address] May, Essential hypertension I10 [place] [address] [address] May, Neuroforaminal stenosis of spine M99.89 [place] [address] [address] Apr, Allergic reaction, initial encounter T78 .40XA [place] [address] [address] Apr, Low back pain, unspecified back pain lat erality, unspecified chronicity, with sciatica presence unspecified M54.5 ; Acute cystitis with hematuria N30.01 ; Neuroforaminal stenosis of spine M99.89 ; Bilateral acute serous otitis media, recurrence not specified H65.03 ; Mixed hyperlipidemia E78.2 ; Essential hypertension I10 ; Immunization counseling Z71.89 and Encounter for immunization Z23 [place] [address] [address] 08 Apr, 2017 Neck pain M54.2 [place] [address] [address] 26 Mar, 2017 Neuroforaminal stenosis of spine M99.89 [place] [address] [address] Mar, Pharyngitis due to other organism J02.8 [place] [address] [address] Feb, Neuroforaminal stenosis of spine M99.89 [place] [address] [address] 08 Feb, 2017 UTI (urinary tract infection) N39.0 [place] [address] [address] 07 Feb, 2017 Recent urinary tract infection Z87.440 ; Neuroforaminal stenosis of spine M99.89 ; Neck pain M54.2 ; Chronic pain due to trauma G89.21 and Recurrent UTI N39.0 [place] [address] [address] Feb, [place] [address] [address] Jan, Neuroforaminal stenosis of spine M99.89 [place] [address] [address] Dec, Neuroforaminal stenosis of spine M99.89 [place] [address] [address] 18 Dec, 2016 Acute seasonal allergic rhinitis due to pollen J30.1 [place] [address] [address] 08 Dec, 2016 [place] [address] [address] 08 Dec, 2016 Acute seasonal allergic rhinitis, unspec ified trigger J30.2 ; Allergic conjunctivitis of both eyes H10.13 and Dysfunction of both eustachian tubes H69.83 [place] [address] [address] 07 Dec, 2016 [place] [address] [address] Dec, Nevus D22.9 [place] [address] [address] Nov, Chronic pain due to trauma G89.21 and Ne uroforaminal stenosis of spine M99.89 [place] [address] [address] Nov, Neuroforaminal stenosis of spine M99.89 ; Essential hypertension I10 ; Mixed hyperlipidemia E78.2 ; Hypokalemia E87.6 ; Neck pain M54.2 and Nevus D22.9 [place] [address] [address] Oct, Neuroforaminal stenosis of spine M99.89 [place] [address] [address] Sep, Neuroforaminal stenosis of spine M99.89 [place] [address] [address] Sep, [place] [address] [address] August, [place] [address] [address] August, Neck pain M54.2 and Neuroforaminal steno sis of spine M99.89 [place] [address] [address] August, Routine gynecological examination Z01.41 9 and Screening breast examination Z12.39 [facility] [address] [address] Jul, [facility] [address] [address] Jul, [facility] [address] [address] Jul, Neuroforaminal stenosis of spine M99.89 [place] [address] [address] Jul, [place] [address] [address] Jul, 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 [place] [address] [address] Jul, [place] [address] [address] Jul, [place] [address] [address] Jun, Neuroforaminal stenosis of spine M99.89 [place] [address] [address] Jun, Uterine leiomyoma, unspecified location D25.9 and Allergic reaction caused by a drug, initial encounter T78.40XA [place] [address] [address] Jun, [place] [address] [address] May, UTI symptoms R39.9 and Pain of right sac roiliac joint M53.[address] [place] [address] May, Neuroforaminal stenosis of spine M99.89 [place] [address] [address] May, [place] [address] [address] May, Acute mucoid otitis media of left ear H6 5.112 and Acute non-recurrent maxillary sinusitis J01.00 [place] [address] [address] May, Acute bacterial conjunctivitis of both e yes H10.33 ; Left arm pain M79.602 and Hypokalemia E87.6 [place] [address] [address] Apr, [place] [address] [address] Apr, Neuroforaminal stenosis of spine M99.89 ; Neck pain M54.2 ; Chronic pain due to trauma G89.21 ; Mixed hyperlipidemia E78.2 ; Essential hypertension I10 and Hypokalemia E87.6 [place] [address] [address] Mar, Oral candidiasis B37.0 ; Neuroforaminal stenosis of spine M99.89 ; Neck pain M54.2 and Chronic pain due to trauma G89.21 [place] [address] [address] Feb, [place] [address] [address] Feb, [place] [address] [address] Feb, UTI (urinary tract infection) N39.0 [place] [address] [address] Feb, Dysuria R30.0 [place] [address] [address] 08 Feb, 2016 Dysuria R30.0 [facility] [address] [address] Feb, Neuroforaminal stenosis of spine M99.89 ; Neck pain M54.2 ; Essential hypertension I10 ; Chronic pain due to trauma G89.21 ; Dysuria R30.0 ; Abnormal MRI, shoulder R93.8 and Acute cystitis without hematuria N30.00 [facility] [address] [address] Jan, [facility] [address] [address] Jan, [facility] [address] [address] Jan, [facility] [address] [address] Jan, Abnormal MRI R93.8 [facility] [address] [address] 29 Dec, 2015 [facility] [address] [facility] [id number] [place] [address] 15 Dec, 2015 Acute pain of left shoulder M25.512 [facility] [address] [address] 09 Dec, 2015 [facility] [address] [address] 08 Dec, 2015 [facility] [address] [address] 07 Dec, 2015 Acute pain of left shoulder M25.512 [facility] [address] [address] Nov, [facility] [address] [address] Nov, Neuroforaminal stenosis of spine M99.89 ; Neck pain M54.2 ; Abnormal mammogram R92.8 ; Essential hypertension I10 and Chronic pain due to trauma G89.21 [facility] [address] [place] [id number] [place] [address] Nov, [facility] [address] [address] Oct, Acute stress disorder F43.0 [facility] [address] [place] [id number] [place] [address] Oct, [facility] [address] [address] Oct, [facility] [address] [address] Oct, [facility] [address] [address] Sep, [facility] [address] [address] August, [facility] [address] [address] Jul, Neuroforaminal stenosis of spine M99.89 ; Neck pain M54.2 ; Abnormal mammogram R92.8 and Essential hypertension I10 [facility] [address] [address] Jul, [facility] [address] [address] Jul, [facility] [address] [address] Jul, Abnormal mammogram R92.8 [facility] [address] [address] Jul, [facility] [address] [address] Jul, UTI (urinary tract infection) N39.0 [facility] [address] [place] [id number] [place] [address] Jul, Dysuria R30.0 [facility] [address] [place] [id number] [place] [address] 31 Jun, 2015 [facility] [address] [address] Jun, [facility] [address] [address] 28 Jun, 2015 Hypokalemia E87.6 and Hematuria R31.9 [place] [address] [address] Jun, Hypokalemia E87.6 [place] [address] [address] Jun, [place] [address] [address] Jun, Hypokalemia E87.6 [place] [address] [address] Jun, Hypokalemia E87.6 [place] [address] [address] 15 Jun, 2015 Neuroforaminal stenosis of spine M99.89 ; Hypokalemia E87.6 ; Neck pain M54.2 ; Essential hypertension I10 ; Mixed hyperlipidemia E78.2 and Screening breast examination Z12.39 [place] [address] [address] 08 Jun, 2015 Dysuria R30.0 ; UTI (urinary tract infec tion) N39.0 and Hematuria R31.9 [place] [address] [place] [id number] [place] [address] May, [place] [address] [address] 18 May, 2015 High risk sexual behavior Z72.51 ; Hypok alemia E87.6 ; Neuroforaminal stenosis of spine M99.89 ; Neck pain M54.2 ; Essential hypertension I10 ; Mixed hyperlipidemia E78.2 ; STD exposure Z20.2 and Concern about STD in female without diagnosis Z71.1 [facility] [address] [place] [id number] [place] [address] 16 May, 2015 Neuroforaminal stenosis of spine M99.89 ; Neck pain M54.2 ; Hypokalemia E87.6 ; Essential hypertension I10 and Mixed hyperlipidemia E78.2 [facility] [address] [place] [id number] [place] [address] 11 May, 2015 [facility] [address] [facility] [id number] [address] [address] 08 May, 2015 High risk sexual behavior Z7 2.51 ; STD exposure Z20.2 and Concern about STD in female without diagnosis Z71.1 [place] [address] [address] 05 May, 2015 [facility] [address] [address] Apr, Neuroforaminal stenosis of spine M99.89 ; Mixed hyperlipidemia E78.2 ; Essential hypertension I10 and Hypokalemia E87.6 [place] [address] [address] Mar, [place] [address] [address] Mar, Hypokalemia E87.6 [place] [address] [address] Mar, Neuroforaminal stenosis of spine M99.89 ; Mixed hyperlipidemia E78.2 ; Neck pain M54.2 ; Essential hypertension I10 ; Abnormal fasting glucose R73.09 ; Hypokalemia E87.6 and Constipation K59.00 [place] [address] [address] Feb, Neuroforaminal stenosis of spine M99.89 ; Mixed hyperlipidemia E78.2 ; Neck pain M54.2 ; Essential hypertension I10 ; Abnormal fasting glucose R73.09 ; Hypokalemia E87.6 and Constipation K59.00 [place] [address] [address] Feb, Elevated fasting blood sugar R73.01 [place] [address] [address] Feb, Elevated fasting blood sugar R73.01 [place] [address] [address] Feb, Hair loss L65.9 [place] [address] [address] Feb, Sinusitis J32.9 ; Essential hypertension I10 and Hair loss L65.[address] [address] Jan, [address] [address] Jan, Essential hypertension I10 ; Neuroforami nal stenosis of spine M99.89 ; Neck pain M54.2 ; Mixed hyperlipidemia E78.2 and Anxiety F41.[address] [address] Jan, [address] [address] Jan, Mixed hyperlipidemia E78.2 ; Essential ( primary) hypertension I10 ; Strain of muscle, fascia and tendon at neck level, subsequent encounter S16.1XXD and Tension-type headache, unspecified, not intractable G44.209 [place] [address] [address] Dec, Lumbar back pain 724.2 and Neuroforamina l stenosis of spine 724.[address] [address] Nov, [address] [address] Nov, Lumbar back pain 724.2 and Neuroforamina l stenosis of spine 724.00 [place] [address] [address] Nov, Edema 782.3 ; Lumbar back pain 724.2 ; E ssential hypertension, benign 401.1 ; Hyperlipemia 272.4 ; Neuroforaminal stenosis of spine 724.00 and Post- concussion headache 339.20 [facility] [address] [address] Nov, [facility] [address] [address] Nov, [place] [address] [address] Oct, Essential hypertension, benign 401.1 [place] [address] [address] Oct, Edema 782.3 ; Lumbar back pain 724.2 ; E ssential hypertension, benign 401.1 ; Hyperlipemia 272.4 ; Neuroforaminal stenosis of spine 724.00 and Post- concussion headache 339.20 [place] [address] [address] Oct, [place] [address] [address] Oct, Edema 782.3 [place] [address] [address] Oct, Lumbar back pain 724.2 [place] [address] [address] Oct, Cervicalgia 723.1 ; Lumbar back pain 724 .2 and High risk medication use V58.69 [place] [address] [address] Sep, [place] [address] [address] Sep, Lumbar strain 847.2 [place] [address] [address] August, Edema 782.3 and Eustachian tube dysfunct ion 381.81 [facility] [address] [place] [id number] [place] [address] August, [facility] [address] [place] [address] [id number] [place] [address] August, Eustachian tube dysfunction 381.81 [facility] [address] [place] [address] [id number] [place] [address] Jul, Otalgia 388.70 and Otitis media 382.9 [facility] [id number] [place] [address] Jul, [facility] [id number] [place] [address] Jul, [facility] [id number] [place] [address] Jul, [facility] [id number] [place] [address] Jul, [facility] [id number] [place] [address] Jul, [facility] [id number] [place] [address] Jun, [facility] [id number] [place] [address] Jun, [facility] [id number] [place] [address] 16 Jun, 2014 [facility] [address] [id number] [place] [address] May, [facility] [id number] [place] [address] May, [facility] [id number] [place] [address] May, [facility] [id number] [place] [address] May, [facility] [id number] [place] [address] 17 May, 2014 [facility] [place] [facility] [address] [facility] [id number] [place] [address] May, [facility] [place] [facility] [address] [id number] [place] [address] May, [facility] [place] [facility] [address] [id number] [place] [address] May, [facility] [place] [facility] [address] [id number] [place] [address] May, [facility] [place] [facility] [address] [id number] [place] [address] May, [facility] [place] [facility] [address] [id number] [place] [address] Apr, [facility] [place] [facility] [address] [id number] [place] [address] Apr, [facility] [place] [facility] [address] [id number] [place] [address] Apr, [facility] [place] [facility] [address] [id number] [place] [address] Apr, [facility] [place] [facility] [address] [id number] [place] [address] Apr, [facility] [place] [facility] [address] [id number] [place] [address] Apr, [facility] [place] [facility] [address] [id number] [place] [address] Apr, [facility] [place] [facility] [address] [id number] [place] [address] Apr, [facility] [place] [facility] [address] [id number] [place] [address] Apr, [facility] [place] [facility] [address] [id number] [place] [address] Apr, [facility] [place] [facility] [address] [id number] [place] [address] Apr, [facility] [place] [facility] [address] [id number] [place] [address] Apr, [facility] [place] [facility] [address] [id number] [place] [address] Apr, [facility] [place] [facility] [address] [id number] [place] [address] Apr, [facility] [place] [facility] [address] [id number] [place] [address] Apr, [facility] [place] [facility] [address] [id number] [place] [address] Mar, [facility] [place] [facility] [address] [id number] [place] [address] Mar, [facility] [place] [facility] [address] [id number] [place] [address] Mar, [facility] [place] [facility] [address] [id number] [place] [address] Mar, [facility] [place] [facility] [address] [id number] [place] [address] Feb, [facility] [place] [facility] [address] [id number] [place] [address] Feb, [facility] [place] [facility] [address] [id number] [place] [address] Feb, [facility] [place] [facility] [address] [id number] [place] [address] Feb, [facility] [place] [facility] [address] [id number] [place] [address] Jan, [facility] [place] [facility] [address] [id number] [place] [address] Jan, [facility] [place] [facility] [address] [id number] [place] [address] Jan, [facility] [place] [facility] [address] [id number] [place] [address] Jan, [facility] [place] [facility] [address] [id number] [facility] [address] Jan, [facility] [place] [facility] [address] [facility] [id number] [place] [address] Jan, [facility] [place] [facility] [address] [facility] [id number] [place] [address] Jan, [facility] [place] [facility] [address] [id number] [place] [address] Jan, [facility] [place] [facility] [address] [facility] [id number] [place] [address] Dec, [facility] [place] [facility] [address] [facility] [id number] [place] [address] Dec, [facility] [place] [facility] [address] [id number] [place] [address] Dec, [facility] [place] [facility] [address] [id number] [place] [address] Dec, [facility] [place] [facility] [address] [id number] [place] [address] Oct, [facility] [place] [facility] [address] [id number] [place] [address] Oct, [facility] [place] [facility] [address] [id number] [place] [address] Oct, [facility] [place] [facility] [address] [id number] [place] [address] Oct, 2013 [facility] [place] [facility] [address] [id number] [place] [address] Oct, 2013 [facility] [place] [facility] [address] [facility] [id number] [place] [address] Oct, [facility] [place] [facility] [address] [id number] [place] [address] Oct, 2013 [facility] [place] [facility] [address] [id number] [place] [address] Oct, 2013 [facility] [place] [facility] [address] [id number] [place] [address] Sep, [facility] [place] [facility] [address] [id number] [place] [address] Sep, [facility] [place] [facility] [address] [id number] [place] [address] Sep, [facility] [place] [facility] [address] [id number] [place] [address] Sep, [facility] [place] [facility] [address] [id number] [place] [address] Sep, [facility] [place] [facility] [address] [facility] [id number] [place] [address] Sep, [facility] [place] [facility] [address] [id number] [place] [address] Sep, [facility] [place] [facility] [address] [id number] [place] [address] Sep, [facility] [place] [facility] [address] [id number] [place] [address] Sep, [facility] [place] [facility] [address] [id number] [place] [address] Sep, [facility] [place] [facility] [address] [id number] [place] [address] August, [facility] [place] [facility] [address] [id number] [place] [address] August, [facility] [place] [facility] [address] [id number] [place] [address] August, [facility] [place] [facility] [address] [id number] [place] [address] August, [facility] [place] [facility] [address] [id number] [place] [address] August, [facility] [place] [facility] [address] [id number] [place] [address] August, [facility] [place] [facility] [address] [id number] [place] [address] August, [facility] [place] [facility] [address] [id number] [place] [address] August, [facility] [place] [facility] [address] [facility] [id number] [place] [address] August, [facility] [place] [facility] [address] [facility] [id number] [place] [address] August, [facility] [place] [facility] [address] [facility] [id number] [place] [address] August, [facility] [place] [facility] [address] [id number] [place] [address] August, [facility] [place] [facility] [address] [facility] [id number] [place] [place] [address] Jul, [facility] [place] [facility] [address] [id number] [place] [address] Jul, [facility] [place] [facility] [address] [id number] [place] [address] Jul, [facility] [place] [facility] [address] [id number] [place] [address] Jul, [facility] [place] [facility] [address] [facility] [id number] [place] [address] Jul, [facility] [place] [facility] [address] [id number] [place] [address] Jul, [facility] [place] [facility] [address] [id number] [place] [address] Jun, [facility] [place] [facility] [address] [id number] [place] [address] Jun, [facility] [place] [facility] [address] [id number] [place] [address] May, [facility] [place] [facility] [address] [id number] [place] [address] May, [facility] [place] [facility] [address] [id number] [place] [address] Apr, [facility] [place] [facility] [address] [id number] [place] [address] Apr, [facility] [place] [facility] [address] [id number] [place] [address] Apr, [facility] [place] [facility] [address] [id number] [place] [address] Apr, [facility] [place] [facility] [address] [id number] [place] [address] Apr, [facility] [place] [facility] [address] [id number] [place] [address] Apr, [facility] [place] [facility] [address] [id number] [place] [address] Apr, [facility] [place] [facility] [address] [id number] [place] [address] Apr, [facility] [place] [facility] [address] [id number] [place] [address] Apr, [facility] [place] [facility] [address] [id number] [place] [address] Apr, [facility] [place] [facility] [address] [id number] [place] [address] Apr, [facility] [place] [facility] [address] [id number] [place] [address] Apr, [facility] [place] [facility] [address] [id number] [place] [address] Apr, [facility] [place] [facility] [address] [id number] [place] [address] Mar, [facility] [place] [facility] [address] [id number] [place] [address] Mar, [facility] [place] [facility] [address] [id number] [place] [address] Mar, [facility] [place] [facility] [address] [id number] [place] [address] Mar, [facility] [place] [facility] [address] [id number] [place] [address] Feb, [facility] [place] [facility] [address] [id number] [place] [address] Feb, [facility] [place] [facility] [address] [id number] [place] [address] 08 Feb, 2013 [facility] [place] [facility] [address] [id number] [place] [address] 08 Feb, 2013 [facility] [place] [facility] [address] [id number] [place] [address] 14 Jan, 2013 [facility] [place] [facility] [address] [id number] [place] [address] 14 Jan, 2013 [facility] [place] [facility] [address] [id number] [place] [address] 11 Jan, 2013 [facility] [place] [facility] [address] [id number] [place] [address] Jan, [facility] [place] [facility] [address] [id number] [place] [address] 10 Jan, 2013 [facility] [place] [facility] [address] [id number] [place] [address] 10 Jan, 2013 [facility] [place] [facility] [address] [id number] [place] [address] 09 Jan, 2013 [facility] [place] [facility] [address] [id number] [place] [address] Jan, [facility] [place] [facility] [address] [id number] [place] [address] Jan, [facility] [place] [facility] [address] [id number] [place] [address] 26 Dec, 2012 [facility] [place] [facility] [address] [id number] [place] [address] 16 Dec, 2012 [facility] [place] [facility] [address] [id number] [place] [address] 16 Dec, 2012 [facility] [place] [facility] [address] [id number] [place] [address] 13 Dec, 2012 [facility] [place] [facility] [address] [id number] [place] [address] 17 Nov, 2012 [facility] [place] [facility] [address] [id number] [place] [address] Nov, [facility] [address] [id number] [place] [address] Nov, [facility] [place] [facility] [address] [facility] [id number] [place] [address] Nov, [facility] [place] [facility] [address] [id number] [place] [address] Oct, [facility] [place] [facility] [address] [id number] [place] [address] Sep, [facility] [place] [facility] [address] [facility] [id number] [place] [address] August, [facility] [place] [facility] [address] [id number] [place] [address] August, [facility] [place] [facility] [address] [id number] [place] [address] August, [facility] [place] [facility] [address] [id number] [place] [address] August, [facility] [address] [id number] [place] [address] August, [facility] [place] [facility] [address] [id number] [place] [address] August, [facility] [place] [facility] [address] [id number] [place] [address] August, [facility] [place] [facility] [address] [id number] [place] [address] August, [facility] [place] [facility] [address] [id number] [place] [address] August, [facility] [place] [facility] [address] [id number] [place] [address] August, [facility] [place] [facility] [address] [id number] [place] [address] August, [facility] [place] [facility] [address] [id number] [place] [address] August, [facility] [place] [facility] [address] [id number] [place] [address] Jul, [facility] [place] [facility] [address] [id number] [place] [address] Jul, [facility] [place] [facility] [address] [id number] [place] [address] 18 Jul, 2012 [facility] [place] [facility] [address] [id number] [place] [address] 15 Jul, 2012 [facility] [place] [facility] [address] [id number] [place] [address] Jul, [facility] [place] [facility] [address] [id number] [place] [address] Jul, [facility] [place] [facility] [address] [id number] [place] [address] Jul, [facility] [place] [facility] [address] [id number] [place] [address] Jul, [facility] [place] [facility] [address] [id number] [place] [address] Jul, [facility] [place] [facility] [address] [id number] [place] [address] Jul, [facility] [place] [facility] [address] [id number] [place] [address] Jul, [facility] [place] [facility] [address] [id number] [place] [address] Jun, [facility] [place] [facility] [address] [id number] [place] [address] Jun, [facility] [place] [facility] [address] [id number] [place] [address] Jun, [facility] [place] [facility] [address] [id number] [place] [address] Jun, [facility] [place] [facility] [address] [id number] [place] [address] May, [facility] [place] [facility] [address] [id number] [place] [address] 14 May, 2012 [facility] [place] [facility] [address] [id number] [place] [address] 05 May, 2012 [facility] [place] [facility] [address] [id number] [place] [address] 04 May, 2012 [facility] [place] [facility] [address] [id number] [place] [address] 04 May, 2012 [facility] [place] [facility] [address] [id number] [place] [address] May, [facility] [place] [facility] [address] [id number] [place] [address] Apr, [facility] [place] [facility] [address] [id number] [place] [address] Apr, [facility] [place] [facility] [address] [id number] [place] [address] Apr, [facility] [place] [facility] [address] [id number] [place] [address] Apr, [facility] [place] [facility] [address] [id number] [place] [address] 15 Mar, 2012 [facility] [place] [facility] [address] [id number] [place] [address] Mar, [facility] [place] [facility] [address] [id number] [place] [address] 14 Mar, 2012 [facility] [place] [facility] [address] [id number] [place] [address] Mar, [facility] [place] [facility] [address] [id number] [place] [address] 14 Mar, 2012 [facility] [place] [facility] [address] [id number] [place] [address] Mar, [facility] [place] [facility] [address] [id number] [place] [address] 06 Mar, 2012 [facility] [place] [facility] [address] [id number] [place] [address] Feb, [facility] [place] [facility] [address] [id number] [place] [address] Feb, [facility] [place] [facility] [address] [facility] [id number] [place] [address] Feb, [facility] [place] [facility] [address] [id number] [place] [address] Feb, [facility] [place] [facility] [address] [id number] [place] [address] Jan, [facility] [place] [facility] [address] [id number] [place] [address] Jan, [facility] [place] [facility] [address] [id number] [place] [address] Jan, [facility] [place] [facility] [address] [id number] [place] [address] Jan, [facility] [place] [facility] [address] [id number] [place] [address] Jan, [facility] [place] [facility] [address] [id number] [place] [address] Jan, [facility] [place] [facility] [address] [id number] [place] [address] Dec, [facility] [place] [facility] [address] [id number] [place] [address] Dec, [facility] [place] [facility] [address] [id number] [place] [address] Nov, [facility] [place] [facility] [address] [id number] [place] [address] Sep, [facility] [place] [facility] [address] [id number] [place] [address] August, [facility] [place] [facility] [address] [id number] [place] [address] August, [facility] [place] [facility] [address] [id number] [place] [address] August, [facility] [place] [facility] [address] [id number] [place] [address] August, [facility] [place] [facility] [address] [id number] [place] [address] August, [facility] [place] [facility] [address] [id number] [place] [address] Jun, [facility] [address] [id number] [place] [address] Jun, [facility] [address] [id number] [place] [address] Apr, [facility] [address] [id number] [place] [address] Apr, [facility] [address] [id number] [place] [address] Mar, [facility] [address] [id number] [place] [address] Feb, [facility] [id number] [place] [address] 14 Feb, 2011 [facility] [address] [id number] [place] [address] 14 Feb, 2011 [facility] [address] [id number] [place] [address] 17 Jan, 2011 [facility] [address] [id number] [place] [address] 15 Jan, 2011 [facility] [address] [id number] [place] [address] 15 Jan, 2011 [facility] [address] [id number] [place] [address] 14 Jan, 2011 [facility] [address] [id number] [place] [address] 15 May, 2010 [facility] [id number] [place] [address] 04 Mar, 2010 [facility] [address] [id number] [place] [address] Oct, [facility] [address] [id number] [place] [address] Sep, [facility] [address] [id number] [place] [address] Mar, [facility] [address] [id number] [place] [address] Jan, [facility] [address] [id number] [place] [address] Jan, [facility] [address] [id number] [place] [address] May, IMMUNIZATIONS No Known Immunizations SOCIAL HISTORY [...]
--- OUTSIDE RECORDS SUMMARY | 2019-11-23 05:47 | XMS REPORT ---
Author Author Liana Coe Doctor Organization 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 Active 124707082375 Problem Neck pain M54.2 Active 89637002 Problem Chronic pain due to trauma G89.21 Act juanis [id number] Problem Hematuria, unspecified type R31.9 Ac tive 31579560 Problem Seasonal allergies J30.2 Active 4 15218011 Problem Abnormal glucose R73.09 Active 102 900891 Problem Anxiety F41.9 Active 79316153 Problem Essential hypertension I10 Active 34413288 Problem Mixed hyperlipidemia E78.2 Active 54191668 Problem Hypokalemia E87.6 Active 63357899 ALLERGIES No Information ENCOUNTERS Encounter Location Date Diagnosis [place] [address] [address] 14 May, 2019 [place] [address] [address] Apr, Essential hypertension I10 and Mixed hyp erlipidemia E78.2 [place] [address] [address] Mar, Neuroforaminal stenosis of spine M99.89 [place] [address] [address] Mar, Epicondylitis, lateral, left M77.12 [place] [address] [address] Mar, [place] [address] [address] Mar, Neuroforaminal stenosis of spine M99.89 [facility] [address] [address] Feb, Neuroforaminal stenosis of spine M99.89 ; Essential hypertension I10 ; Mixed hyperlipidemia E78.2 ; Encounter for immunization Z23 and Seasonal allergies J30.2 [facility] [address] [address] Jan, Neuroforaminal stenosis of spine M99.89 [facility] [address] [address] Dec, Neuroforaminal stenosis of spine M99.89 [place] [address] [address] Dec, Neuroforaminal stenosis of spine M99.89 [place] [address] [address] Nov, [place] [address] [address] Nov, Neuroforaminal stenosis of spine M99.89 [facility] [address] [address] Nov, Acute non-recurrent maxillary sinusitis J01.00 [facility] [address] [address] Oct, Hypokalemia E87.6 [facility] [address] [facility] [id number] [address] [place] [address] Oct, Wasp sting, undetermined int ent, initial encounter T63.464A and Cellulitis of left lower extremity L03.116 [place] [address] [address] Oct, Neuroforaminal stenosis of spine M99.89 [facility] [address] [address] Sep, [facility] [address] [address] Sep, [place] [address] [address] 18 Sep, 2018 Routine screening for STI (sexually veronica smitted infection) Z11.3 [place] [address] [address] 14 Sep, 2018 Routine screening for STI (sexually veronica smitted infection) Z11.3 ; Well woman exam with routine gynecological exam Z01.419 and Breast cancer screening Z12.39 [place] [address] [address] 10 Sep, 2018 Neuroforaminal stenosis of spine M99.[address] [address] August, Neuroforaminal stenosis of spine M99.[address] [address] August, Neuroforaminal stenosis of spine M99.89 ; Chronic pain due to trauma G89.21 and Mixed hyperlipidemia E78.[address] [address] Jul, Viral upper respiratory illness J06.9 an d Acute non-recurrent frontal sinusitis J01.[address] [address] Jul, Congestion of nasal sinus R09.[address] [address] Jul, Neuroforaminal stenosis of spine M99.89 and Essential hypertension I10 [place] [address] [address] May, Neuroforaminal stenosis of spine M99.89 [place] [address] [address] May, [address] [address] May, Congestion of nasal sinus R09.81 [place] [address] [address] May, [place] [address] [address] Apr, Neuroforaminal stenosis of spine M99.89 [place] [address] [address] Apr, Neuroforaminal stenosis of spine M99.89 and Chronic pain due to trauma G89.21 [place] [address] [address] Mar, UTI (urinary tract infection) N39.0 [place] [address] [address] Mar, Vertigo R42 [place] [address] [address] Mar, Neuroforaminal stenosis of spine M99.89 [place] [address] [address] Feb, Extensor tendon disruption M67.89 [place] [address] [address] Feb, Neuroforaminal stenosis of spine M99.89 and High risk medication use Z79.899 [place] [address] [address] Jan, Hypokalemia E87.6 [place] [address] [address] Jan, Flank pain R10.9 and Acute right-sided l ow back pain without sciatica M54.5 [place] [address] [address] Jan, Hypokalemia E87.6 [place] [address] [address] Jan, [place] [address] [address] Jan, URI, acute J06.9 [place] [address] [place] [address] 05 Jan, 2018 Neuroforaminal stenosis of spine M99.89 [place] [address] [place] [address] 13 Dec, 2017 Lateral epicondylitis, right elbow M77.1 1 [place] [address] [place] [address] 11 Dec, 2017 Allergic rhinitis due to pollen, unspeci fied seasonality J30.1 and Allergic conjunctivitis of both eyes H10.13 [place] [address] [address] 10 Dec, 2017 Neuroforaminal stenosis of spine M99.89 [place] [address] [address] 06 Dec, 2017 Mixed hyperlipidemia E78.2 [place] [address] [address] 05 Dec, 2017 Abnormal glucose R73.09 ; Abnormal renal ultrasound R93.429 ; Dysuria R30.0 ; Cystitis without hematuria N30.90 ; Hypokalemia E87.6 ; Mixed hyperlipidemia E78.2 and Hematuria, unspecified type R31.9 [place] [address] [address] Nov, Hypokalemia E87.6 ; Mixed hyperlipidemia E78.2 and Hematuria, unspecified type R31.9 [place] [address] [address] Nov, [place] [address] [address] Nov, Hypokalemia E87.6 [place] [address] [address] Nov, [place] [address] [place] [id number] Nov, Abnormal renal ultrasound R93.429 [place] [address] [address] Nov, Abnormal renal ultrasound R93.429 [place] [address] [address] 09 Nov, 2017 Hematuria, unspecified type R31.9 and Ne uroforaminal stenosis of spine M99.89 [place] [address] [address] Nov, Dysuria R30.0 [place] [address] [address] Oct, Lateral epicondylitis, right elbow M77.1 1 [place] [address] [address] Oct, Neuroforaminal stenosis of spine M99.89 ; Visit for TB skin test Z11.1 and Essential hypertension I10 [place] [address] [address] Oct, [place] [address] [address] Oct, Neuroforaminal stenosis of spine M99.89 [place] [address] [address] Oct, Visit for TB skin test Z11.1 [place] [address] [address] 05 Oct, 2017 Cystitis without hematuria N30.90 [place] [address] [address] Sep, Screening breast examination Z12.39 [place] [address] [address] Sep, Dysuria R30.0 and Cystitis without hemat uria N30.90 [place] [address] [address] Sep, Essential hypertension I10 and Neurofora ingrid stenosis of spine M99.89 [place] [address] [address] Sep, Abnormal glucose R73.09 [facility] [address] [address] August, Lateral epicondylitis, right elbow M77.1 1 [place] [address] [address] August, Screen for STD (sexually transmitted dis ease) Z11.3 [place] [address] [address] August, Neuroforaminal stenosis of spine M99.89 ; Mixed hyperlipidemia E78.2 ; Elevated fasting glucose R73.01 ; Screening mammogram, encounter for Z12.31 and Encounter for well woman exam without gynecological exam Z00.00 [place] [address] [address] August, Neuroforaminal stenosis of spine M99.89 [place] [address] [address] August, Essential hypertension I10 ; Hypokalemia E87.6 and Mixed hyperlipidemia E78.2 [place] [address] [address] Jul, [place] [address] [address] Jul, Neuroforaminal stenosis of spine M99.89 [place] [address] [address] Jul, Lateral epicondylitis, right elbow M77.1 1 [place] [address] [address] Jul, [place] [address] [address] Jun, High ankle sprain of right lower extremi ty, initial encounter S93.431A [place] [address] [address] Jun, Essential hypertension I10 [place] [address] [address] Jun, [place] [address] [address] Jun, [place] [address] [address] Jun, Neuroforaminal stenosis of spine M99.89 [place] [address] [address] Jun, Pain of right upper extremity M79.601 an d Essential hypertension I10 [place] [address] [address] Jun, [place] [address] [address] Jun, Dysuria R30.0 ; Acute cystitis with keturah turia N30.01 and Screen for STD (sexually transmitted disease) Z11.3 [place] [address] [address] May, Chronic pain due to trauma G89.21 [place] [address] [address] May, Essential hypertension I10 [place] [address] [address] May, Neuroforaminal stenosis of spine M99.89 [place] [address] [address] Apr, Allergic reaction, initial encounter T78 .40XA [place] [address] [address] Apr, Low back pain, unspecified back pain lat erality, unspecified chronicity, with sciatica presence unspecified M54.5 ; Acute cystitis with hematuria N30.01 ; Neuroforaminal stenosis of spine M99.89 ; Bilateral acute serous otitis media, recurrence not specified H65.03 ; Mixed hyperlipidemia E78.2 ; Essential hypertension I10 ; Immunization counseling Z71.89 and Encounter for immunization Z23 [place] [address] [address] 08 Apr, 2017 Neck pain M54.2 [place] [address] [address] Mar, Neuroforaminal stenosis of spine M99.89 [place] [address] [address] Mar, Pharyngitis due to other organism J02.8 [place] [address] [address] Feb, Neuroforaminal stenosis of spine M99.89 [place] [address] [address] 08 Feb, 2017 UTI (urinary tract infection) N39.0 [place] [address] [address] 07 Feb, 2017 Recent urinary tract infection Z87.440 ; Neuroforaminal stenosis of spine M99.89 ; Neck pain M54.2 ; Chronic pain due to trauma G89.21 and Recurrent UTI N39.0 [place] [address] [address] Feb, [place] [address] [address] Jan, Neuroforaminal stenosis of spine M99.89 [place] [address] [address] Dec, Neuroforaminal stenosis of spine M99.89 [place] [address] [address] 18 Dec, 2016 Acute seasonal allergic rhinitis due to pollen J30.1 [place] [address] [address] 08 Dec, 2016 [place] [address] [address] 08 Dec, 2016 Acute seasonal allergic rhinitis, unspec ified trigger J30.2 ; Allergic conjunctivitis of both eyes H10.13 and Dysfunction of both eustachian tubes H69.83 [place] [address] [address] 07 Dec, 2016 [place] [address] [address] Dec, Nevus D22.9 [place] [address] [address] Nov, Chronic pain due to trauma G89.21 and Ne uroforaminal stenosis of spine M99.89 [place] [address] [address] Nov, Neuroforaminal stenosis of spine M99.89 ; Essential hypertension I10 ; Mixed hyperlipidemia E78.2 ; Hypokalemia E87.6 ; Neck pain M54.2 and Nevus D22.9 [place] [address] [address] Oct, Neuroforaminal stenosis of spine M99.89 [place] [address] [address] Sep, Neuroforaminal stenosis of spine M99.89 [place] [address] [address] Sep, [place] [address] [address] August, [place] [address] [address] August, Neck pain M54.2 and Neuroforaminal steno sis of spine M99.89 [place] [address] [address] August, Routine gynecological examination Z01.41 9 and Screening breast examination Z12.39 [facility] [address] [address] Jul, [facility] [address] [address] Jul, [facility] [address] [address] Jul, Neuroforaminal stenosis of spine M99.89 [facility] [address] [address] Jul, [facility] [address] [address] Jul, 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 [place] [address] [address] Jul, [place] [address] [address] Jul, [facility] [address] [address] Jun, Neuroforaminal stenosis of spine M99.89 [place] [address] [address] Jun, Uterine leiomyoma, unspecified location D25.9 and Allergic reaction caused by a drug, initial encounter T78.40XA [place] [address] [address] Jun, [facility] [address] [address] May, UTI symptoms R39.9 and Pain of right sac roiliac joint M53.3 [place] [address] [address] May, Neuroforaminal stenosis of spine M99.89 [facility] [address] [address] May, [place] [address] [address] May, Acute mucoid otitis media of left ear H6 5.112 and Acute non-recurrent maxillary sinusitis J01.00 [place] [address] [address] May, Acute bacterial conjunctivitis of both e yes H10.33 ; Left arm pain M79.602 and Hypokalemia E87.6 [place] [address] [address] Apr, [place] [address] [address] Apr, Neuroforaminal stenosis of spine M99.89 ; Neck pain M54.2 ; Chronic pain due to trauma G89.21 ; Mixed hyperlipidemia E78.2 ; Essential hypertension I10 and Hypokalemia E87.6 [place] [address] [address] Mar, Oral candidiasis B37.0 ; Neuroforaminal stenosis of spine M99.89 ; Neck pain M54.2 and Chronic pain due to trauma G89.21 [place] [address] [address] Feb, [place] [address] [address] Feb, [place] [address] [address] Feb, UTI (urinary tract infection) N39.0 [place] [address] [address] Feb, Dysuria R30.0 [place] [address] [address] Feb, Dysuria R30.0 [place] [address] [address] Feb, Neuroforaminal stenosis of spine M99.89 ; Neck pain M54.2 ; Essential hypertension I10 ; Chronic pain due to trauma G89.21 ; Dysuria R30.0 ; Abnormal MRI, shoulder R93.8 and Acute cystitis without hematuria N30.00 [facility] [address] [address] Jan, [facility] [address] [address] Jan, [facility] [address] [address] Jan, [facility] [address] [address] Jan, Abnormal MRI R93.8 [facility] [address] [address] 29 Dec, 2015 [facility] [address] [facility] [id number] [address] [place] [address] 15 Dec, 2015 Acute pain of left shoulder M25.512 [facility] [address] [address] 09 Dec, 2015 [facility] [address] [address] 08 Dec, 2015 [facility] [address] [address] 07 Dec, 2015 Acute pain of left shoulder M25.512 [place] [address] [address] Nov, [facility] [address] [address] Nov, Neuroforaminal stenosis of spine M99.89 ; Neck pain M54.2 ; Abnormal mammogram R92.8 ; Essential hypertension I10 and Chronic pain due to trauma G89.21 [facility] [address] [address] Nov, [facility] [address] [address] Oct, Acute stress disorder F43.0 [facility] [address] [place] [id number] [place] [address] Oct, [facility] [address] [place] [id number] [place] [address] Oct, [facility] [address] [place] [id number] [place] [address] Oct, [facility] [address] [place] [id number] [place] [address] Sep, [facility] [address] [place] [id number] [place] [address] August, [facility] [address] [address] Jul, Neuroforaminal stenosis of spine M99.89 ; Neck pain M54.2 ; Abnormal mammogram R92.8 and Essential hypertension I10 [facility] [address] [place] [id number] [place] [address] Jul, [facility] [address] [place] [id number] [place] [address] Jul, [facility] [address] [place] [id number] [place] [address] Jul, Abnormal mammogram R92.8 [facility] [address] [place] [id number] [place] [address] Jul, [facility] [address] [place] [id number] [place] [address] Jul, UTI (urinary tract infection) N39.0 [facility] [address] [place] [id number] [place] [address] Jul, Dysuria R30.0 [facility] [address] [place] [id number] [place] [address] Jun, [facility] [address] [place] [id number] [place] [address] Jun, [facility] [address] [place] [id number] [place] [address] Jun, Hypokalemia E87.6 and Hematuria R31.9 [place] [address] [address] Jun, Hypokalemia E87.6 [place] [address] [address] Jun, [place] [address] [address] Jun, Hypokalemia E87.6 [place] [address] [address] Jun, Hypokalemia E87.6 [place] [address] [address] Jun, Neuroforaminal stenosis of spine M99.89 ; Hypokalemia E87.6 ; Neck pain M54.2 ; Essential hypertension I10 ; Mixed hyperlipidemia E78.2 and Screening breast examination Z12.39 [place] [address] [address] 08 Jun, 2015 Dysuria R30.0 ; UTI (urinary tract infec tion) N39.0 and Hematuria R31.9 [place] [address] [address] May, [place] [address] [address] 18 May, 2015 High risk sexual behavior Z72.51 ; Hypok alemia E87.6 ; Neuroforaminal stenosis of spine M99.89 ; Neck pain M54.2 ; Essential hypertension I10 ; Mixed hyperlipidemia E78.2 ; STD exposure Z20.2 and Concern about STD in female without diagnosis Z71.1 [place] [address] [address] 16 May, 2015 Neuroforaminal stenosis of spine M99.89 ; Neck pain M54.2 ; Hypokalemia E87.6 ; Essential hypertension I10 and Mixed hyperlipidemia E78.2 [place] [address] [place] [id number] [place] [address] 11 May, 2015 [facility] [address] [facility] [id number] [address] [place] [address] 08 May, 2015 High risk sexual behavior Z7 2.51 ; STD exposure Z20.2 and Concern about STD in female without diagnosis Z71.1 [facility] [address] [address] 05 May, 2015 [facility] [address] [address] Apr, Neuroforaminal stenosis of spine M99.89 ; Mixed hyperlipidemia E78.2 ; Essential hypertension I10 and Hypokalemia E87.6 [facility] [address] [address] Mar, [place] [address] [address] Mar, Hypokalemia E87.6 [facility] [address] [address] Mar, Neuroforaminal stenosis of spine M99.89 ; Mixed hyperlipidemia E78.2 ; Neck pain M54.2 ; Essential hypertension I10 ; Abnormal fasting glucose R73.09 ; Hypokalemia E87.6 and Constipation K59.00 [place] [address] [address] Feb, Neuroforaminal stenosis of spine M99.89 ; Mixed hyperlipidemia E78.2 ; Neck pain M54.2 ; Essential hypertension I10 ; Abnormal fasting glucose R73.09 ; Hypokalemia E87.6 and Constipation K59.00 [place] [address] [address] Feb, Elevated fasting blood sugar R73.01 [place] [address] [address] Feb, Elevated fasting blood sugar R73.01 [place] [address] [address] Feb, Hair loss L65.9 [place] [address] [address] Feb, Sinusitis J32.9 ; Essential hypertension I10 and Hair loss L65.9 [place] [address] [address] Jan, [place] [address] [address] Jan, Essential hypertension I10 ; Neuroforami nal stenosis of spine M99.89 ; Neck pain M54.2 ; Mixed hyperlipidemia E78.2 and Anxiety F41.9 [place] [address] [address] Jan, [place] [address] [address] Jan, Mixed hyperlipidemia E78.2 ; Essential ( primary) hypertension I10 ; Strain of muscle, fascia and tendon at neck level, subsequent encounter S16.1XXD and Tension-type headache, unspecified, not intractable G44.209 [place] [address] [address] Dec, Lumbar back pain 724.2 and Neuroforamina l stenosis of spine 724.00 [place] [address] [address] Nov, [place] [address] [address] Nov, Lumbar back pain 724.2 and Neuroforamina l stenosis of spine 724.00 [place] [address] [address] Nov, Edema 782.3 ; Lumbar back pain 724.2 ; E ssential hypertension, benign 401.1 ; Hyperlipemia 272.4 ; Neuroforaminal stenosis of spine 724.00 and Post- concussion headache 339.20 [place] [address] [address] Nov, [facility] [address] [address] Nov, [facility] [address] [address] Oct, Essential hypertension, benign 401.1 [facility] [address] [address] Oct, Edema 782.3 ; Lumbar back pain 724.2 ; E ssential hypertension, benign 401.1 ; Hyperlipemia 272.4 ; Neuroforaminal stenosis of spine 724.00 and Post- concussion headache 339.20 [place] [address] [address] Oct, [facility] [address] [address] Oct, Edema 782.3 [facility] [address] [address] Oct, Lumbar back pain 724.2 [place] [address] [address] Oct, Cervicalgia 723.1 ; Lumbar back pain 724 .2 and High risk medication use V58.69 [place] [address] [address] Sep, [facility] [address] [address] Sep, Lumbar strain 847.2 [facility] [address] [address] August, Edema 782.3 and Eustachian tube dysfunct ion 381.81 [facility] [address] [address] August, [facility] [address] [address] August, Eustachian tube dysfunction 381.81 [facility] [address] [id number] [place] [address] Jul, Otalgia 388.70 and Otitis media 382.9 [facility] [address] [id number] [place] [address] Jul, [facility] [address] [id number] [place] [address] Jul, [facility] [address] [id number] [place] [address] Jul, [facility] [address] [id number] [place] [address] 14 Jul, 2014 [facility] [address] [id number] [place] [address] Jul, [facility] [address] [id number] [place] [address] Jun[facility] [address] [id number] [place] [address] Jun, [facility] [facility] [address] [id number] [place] [address] Jun, [facility] [address] [id number] [place] [address] May, [facility] [address] [id number] [place] [address] May, [facility] [address] [id number] [place] [address] May, [facility] [address] [id number] [place] [address] May, [facility] [address] [id number] [place] [address] May, [facility] [address] [id number] [place] [address] May, [facility] [address] [id number] [place] [address] May, [facility] [address] [facility] [id number] [place] [address] May, [facility] [address] [facility] [id number] [place] [address] May, [facility] [address] [id number] [place] [address] May, [facility] [address] [id number] [place] [address] Apr, [facility] [address] [facility] [id number] [place] [address] Apr, [facility] [address] [id number] [place] [address] Apr, [facility] [address] [id number] [place] [address] Apr, [facility] [address] [id number] [place] [address] Apr, [facility] [address] [id number] [place] [address] Apr, [facility] [address] [id number] [place] [address] Apr, [facility] [address] [id number] [place] [address] Apr, [facility] [address] [id number] [place] [address] Apr, [facility] [address] [id number] [place] [address] Apr, [facility] [address] [id number] [place] [address] Apr, [facility] [address] [id number] [place] [address] Apr, [facility] [address] [id number] [place] [address] Apr, [facility] [address] [id number] [place] [address] Apr, [facility] [address] [id number] [place] [address] Apr, [facility] [address] [id number] [place] [address] Mar, [facility] [address] [id number] [place] [address] Mar, [facility] [address] [id number] [place] [address] Mar, [facility] [address] [id number] [place] [address] Mar, [facility] [address] [id number] [place] [address] Feb, [facility] [address] [id number] [place] [address] Feb, [facility] [address] [id number] [place] [address] Feb, [facility] [address] [id number] [place] [address] Feb, [facility] [address] [id number] [place] [address] Jan, [facility] [address] [id number] [place] [address] Jan, [facility] [address] [id number] [place] [address] Jan, [facility] [address] [id number] [place] [address] Jan, [facility] [address] [id number] [place] [address] Jan, [facility] [address] [id number] [place] [address] Jan, [facility] [address] [id number] [place] [address] Jan, [facility] [address] [facility] [id number] [place] [address] Jan, [facility] [address] [facility] [id number] [place] [address] Dec, [facility] [address] [id number] [place] [address] Dec, 2013 [facility] [address] [id number] [place] [address] Dec, [facility] [address] [facility] [id number] [place] [address] Dec, 2013 [facility] [address] [id number] [place] [address] Oct, [facility] [address] [id number] [place] [address] Oct, 2013 [facility] [address] [id number] [place] [address] Oct, 2013 [facility] [address] [id number] [place] [address] Oct, 2013 [facility] [address] [id number] [place] [address] Oct, [facility] [address] [id number] [place] [address] Oct, 2013 [facility] [address] [id number] [place] [address] Oct, 2013 [facility] [address] [id number] [place] [address] Oct, 2013 [facility] [address] [id number] [place] [address] Sep, [facility] [address] [id number] [place] [address] Sep, [facility] [address] [id number] [place] [address] Sep, [facility] [address] [id number] [place] [address] Sep, [facility] [address] [facility] [id number] [place] [address] Sep, [facility] [address] [facility] [id number] [place] [address] Sep, [facility] [address] [id number] [place] [address] Sep, [facility] [address] [id number] [place] [address] Sep, [facility] [address] [facility] [id number] [place] [address] Sep, [facility] [address] [id number] [place] [address] Sep, [facility] [address] [id number] [place] [address] August, [facility] [address] [id number] [place] [address] August, [facility] [address] [id number] [place] [address] August, [facility] [address] [id number] [place] [address] August, [facility] [address] [id number] [place] [address] August, [facility] [address] [id number] [place] [address] August, [facility] [address] [id number] [place] [address] August, [facility] [address] [id number] [place] [address] August, [facility] [address] [id number] [place] [address] August, [facility] [address] [id number] [place] [address] August, [facility] [address] [id number] [place] [address] August, [facility] [address] [facility] [id number] [place] [address] August, [facility] [address] [facility] [id number] [place] [address] Jul, [facility] [address] [id number] [place] [address] Jul, [facility] [address] [id number] [place] [address] Jul, [facility] [address] [id number] [place] [address] Jul, [facility] [address] [id number] [place] [address] Jul, [facility] [address] [id number] [place] [address] Jul, [facility] [address] [id number] [place] [address] Jun, [facility] [address] [id number] [place] [address] Jun, [facility] [address] [id number] [place] [address] May, [facility] [address] [id number] [place] [address] May, [facility] [address] [id number] [place] [address] Apr, [facility] [address] [facility] [id number] [place] [address] Apr, [facility] [address] [id number] [place] [address] Apr, [facility] [address] [id number] [place] [address] Apr, [facility] [address] [id number] [place] [address] Apr, [facility] [address] [id number] [place] [address] Apr, [facility] [address] [id number] [place] [address] Apr, [facility] [address] [id number] [place] [address] Apr, [facility] [address] [id number] [place] [address] Apr, [facility] [address] [id number] [place] [address] Apr, [facility] [address] [id number] [place] [address] Apr, [facility] [address] [id number] [place] [address] Apr, [facility] [id number] [place] [address] Apr, [facility] [address] [id number] [place] [address] Mar, [facility] [address] [id number] [place] [address] Mar, [facility] [address] [id number] [place] [address] Mar, [facility] [address] [id number] [place] [address] Mar, [facility] [address] [id number] [place] [address] Feb, [facility] [address] [id number] [place] [address] Feb, [facility] [address] [id number] [place] [address] Feb, [facility] [address] [id number] [place] [address] Feb, [facility] [address] [id number] [place] [address] 14 Jan, 2013 [facility] [address] [facility] [id number] [place] [address] 14 Jan, 2013 [facility] [address] [facility] [id number] [place] [address] 11 Jan, 2013 [facility] [address] [id number] [place] [address] 11 Jan, 2013 [facility] [address] [facility] [id number] [place] [address] 10 Jan, 2013 [facility] [address] [facility] [id number] [place] [address] 10 Jan, 2013 [facility] [address] [id number] [place] [address] 09 Jan, 2013 [facility] [address] [id number] [place] [address] 09 Jan, 2013 [facility] [address] [id number] [place] [address] Jan, [facility] [address] [facility] [id number] [place] [address] 26 Dec, 2012 [facility] [address] [id number] [place] [address] 16 Dec, 2012 [facility] [address] [id number] [place] [address] 16 Dec, 2012 [facility] [address] [id number] [place] [address] 13 Dec, 2012 [facility] [address] [facility] [id number] [place] [address] 17 Nov, 2012 [facility] [address] [id number] [place] [address] Nov, [facility] [address] [facility] [id number] [place] [address] 14 Nov, 2012 [facility] [address] [id number] [place] [address] Nov, [facility] [address] [facility] [id number] [place] [address] Oct, [facility] [address] [id number] [place] [address] Sep, [facility] [address] [id number] [place] [address] August, [facility] [address] [id number] [place] [address] August, [facility] [address] [id number] [place] [address] August, [facility] [address] [id number] [place] [address] August, [facility] [address] [id number] [place] [address] August, [facility] [address] [id number] [place] [address] August, [facility] [address] [id number] [place] [address] August, [facility] [address] [id number] [place] [address] August, [facility] [address] [id number] [place] [address] August, [facility] [address] [id number] [place] [address] August, [facility] [address] [id number] [place] [address] August, [facility] [address] [id number] [place] [address] August, [facility] [address] [id number] [place] [address] Jul, [facility] [address] [id number] [place] [address] Jul, [facility] [address] [id number] [place] [address] Jul, [facility] [address] [id number] [place] [address] 15 Jul, 2012 [facility] [address] [id number] [place] [address] Jul, [facility] [address] [id number] [place] [address] 08 Jul, 2012 [facility] [address] [id number] [place] [address] Jul, [facility] [address] [id number] [place] [address] Jul, [facility] [address] [id number] [place] [address] Jul, [facility] [address] [id number] [place] [address] Jul, [facility] [address] [id number] [place] [address] Jul, [facility] [address] [id number] [place] [address] Jun, [facility] [address] [id number] [place] [address] Jun, [facility] [address] [id number] [place] [address] Jun, [facility] [address] [id number] [place] [address] Jun, [facility] [address] [id number] [place] [address] May, [facility] [address] [id number] [place] [address] 14 May, 2012 [facility] [address] [id number] [place] [address] 05 May, 2012 [facility] [address] [id number] [place] [address] 04 May, 2012 [facility] [address] [id number] [place] [address] May, [facility] [address] [id number] [place] [address] May, [facility] [address] [id number] [place] [address] Apr, [facility] [address] [id number] [place] [address] Apr, [facility] [address] [id number] [place] [address] Apr, [facility] [address] [id number] [place] [address] Apr, [facility] [address] [id number] [place] [address] Mar, [facility] [address] [id number] [place] [address] 14 Mar, 2012 [facility] [address] [id number] [place] [address] Mar, [facility] [address] [id number] [place] [address] Mar, [facility] [address] [id number] [place] [address] Mar, [facility] [address] [id number] [place] [address] Mar, [facility] [address] [id number] [place] [address] Mar, [facility] [address] [id number] [place] [address] Feb, [facility] [id number] [place] [address] Feb, [facility] [address] [id number] [place] [address] Feb, [facility] [address] [id number] [place] [address] Feb, [facility] [address] [id number] [place] [address] Jan, [facility] [address] [id number] [place] [address] Jan, [facility] [address] [id number] [place] [address] Jan, [facility] [address] [id number] [place] [address] Jan, [facility] [address] [id number] [place] [address] Jan, [facility] [address] [facility] [id number] [place] [address] Jan, [facility] [address] [id number] [place] [address] Dec, [facility] [address] [facility] [id number] [place] [address] Dec, [facility] [address] [facility] [id number] [place] [address] Nov, [facility] [address] [facility] [id number] [place] [address] Sep, [facility] [address] [facility] [id number] [place] [address] August, [facility] [address] [id number] [place] [address] August, [facility] [address] [facility] [id number] [place] [address] August, [facility] [address] [facility] [id number] [place] [address] August, [facility] [address] [facility] [id number] [place] [address] August, [facility] [address] [id number] [place] [address] Jun, [facility] [address] [id number] [place] [address] Jun, [facility] [address] [id number] [place] [address] Apr, [facility] [address] [facility] [id number] [place] [address] Apr, [facility] [address] [id number] [place] [address] Mar, [facility] [address] [id number] [place] [address] Feb, [facility] [address] [facility] [id number] [place] [address] Feb, [facility] [address] [facility] [id number] [place] [address] Feb, [facility] [address] [id number] [place] [address] 17 Jan, 2011 [facility] [address] [id number] [place] [address] 15 Jan, 2011 [facility] [address] [id number] [place] [address] 15 Jan, 2011 [facility] [address] [facility] [id number] [place] [address] 14 Jan, 2011 [facility] [address] [facility] [id number] [place] [address] 15 May, 2010 [facility] [address] [id number] [place] [address] Mar, [facility] [address] [id number] [place] [address] Oct, [facility] [address] [facility] [id number] [place] [address] Sep, [facility] [address] [facility] [id number] [place] [address] Mar, [facility] [address] [id number] [place] [address] Jan, [facility] [address] [id number] [place] [address] Jan, [facility] [address] [facility] [id number] [place] [address] May, IMMUNIZATIONS No Known Immunizations SOCIAL HISTORY [...]
--- OUTSIDE RECORDS SUMMARY | 2019-11-23 05:48 | XMS REPORT ---
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 Active 160403267264 Problem Neck pain M54.2 Active 23597450 Problem Chronic pain due to trauma G89.21 Act juanis 428825505 Problem Hematuria, unspecified type R31.9 Ac tive 54536768 Problem Seasonal allergies J30.2 Active 4 23282364 Problem Abnormal glucose R73.09 Active 102 129117 Problem Anxiety F41.9 Active 39851601 Problem Essential hypertension I10 Active 63044174 Problem Mixed hyperlipidemia E78.2 Active 07156464 Problem Hypokalemia E87.6 Active 01430982 ALLERGIES No Information ENCOUNTERS Encounter Location Date Diagnosis [place] [address] [address] Apr, Essential hypertension I10 and Mixed hyp erlipidemia E78.2 [place] [address] [address] Mar, Neuroforaminal stenosis of spine M99.89 [place] [address] [address] Mar, Epicondylitis, lateral, left M77.12 [place] [address] [address] Mar, [place] [address] [address] Mar, Neuroforaminal stenosis of spine M99.89 [place] [address] [address] Feb, Neuroforaminal stenosis of spine M99.89 ; Essential hypertension I10 ; Mixed hyperlipidemia E78.2 ; Encounter for immunization Z23 and Seasonal allergies J30.2 [facility] [address] [address] Jan, Neuroforaminal stenosis of spine M99.89 [facility] [address] [address] Dec, Neuroforaminal stenosis of spine M99.89 [facility] [address] [address] Dec, Neuroforaminal stenosis of spine M99.89 [place] [address] [address] Nov, [place] [address] [address] Nov, Neuroforaminal stenosis of spine M99.89 [place] [address] [address] Nov, Acute non-recurrent maxillary sinusitis J01.00 [place] [address] [address] Oct, Hypokalemia E87.6 [facility] [address] [facility] [id number] [address] [place] [address] Oct, Wasp sting, undetermined int ent, initial encounter T63.464A and Cellulitis of left lower extremity L03.116 [facility] [address] [address] Oct, Neuroforaminal stenosis of spine M99.89 [facility] [address] [address] Sep, [place] [address] [address] Sep, [place] [address] [address] Sep, Routine screening for STI (sexually veronica smitted infection) Z11.3 [place] [address] [address] 14 Sep, 2018 Routine screening for STI (sexually veronica smitted infection) Z11.3 ; Well woman exam with routine gynecological exam Z01.419 and Breast cancer screening Z12.39 [place] [address] [address] 10 Sep, 2018 Neuroforaminal stenosis of spine M99.89 [place] [address] [address] August, Neuroforaminal stenosis of spine M99.89 [place] [address] [address] August, Neuroforaminal stenosis of spine M99.89 ; Chronic pain due to trauma G89.21 and Mixed hyperlipidemia E78.2 [place] [address] [address] 16 Jul, 2018 Viral upper respiratory illness J06.9 an d Acute non-recurrent frontal sinusitis J01.10 [place] [address] [address] Jul, Congestion of nasal sinus R09.81 [place] [address] [address] Jul, Neuroforaminal stenosis of spine M99.89 and Essential hypertension I10 [place] [address] [address] May, Neuroforaminal stenosis of spine M99.89 [place] [address] [address] May, [place] [address] [address] May, Congestion of nasal sinus R09.81 [place] [address] [address] May, [place] [address] [address] Apr, Neuroforaminal stenosis of spine M99.89 [place] [address] [address] Apr, Neuroforaminal stenosis of spine M99.89 and Chronic pain due to trauma G89.21 [place] [address] [address] Mar, UTI (urinary tract infection) N39.0 [place] [address] [address] Mar, Vertigo R42 [place] [address] [address] Mar, Neuroforaminal stenosis of spine M99.89 [place] [address] [address] Feb, Extensor tendon disruption M67.89 [place] [address] [address] Feb, Neuroforaminal stenosis of spine M99.89 and High risk medication use Z79.899 [place] [address] [address] Jan, Hypokalemia E87.6 [place] [address] [address] Jan, Flank pain R10.9 and Acute right-sided l ow back pain without sciatica M54.5 [place] [address] [address] Jan, Hypokalemia E87.6 [place] [address] [address] Jan, [place] [address] [address] Jan, URI, acute J06.9 [place] [address] [address] 05 Jan, 2018 Neuroforaminal stenosis of spine M99.89 [place] [address] [address] 13 Dec, 2017 Lateral epicondylitis, right elbow M77.1 1 [place] [address] [address] 11 Dec, 2017 Allergic rhinitis due to pollen, unspeci fied seasonality J30.1 and Allergic conjunctivitis of both eyes H10.13 [place] [address] [address] 10 Dec, 2017 Neuroforaminal stenosis of spine M99.89 [place] [address] [address] 06 Dec, 2017 Mixed hyperlipidemia E78.2 [place] [address] [address] 05 Dec, 2017 Abnormal glucose R73.09 ; Abnormal renal ultrasound R93.429 ; Dysuria R30.0 ; Cystitis without hematuria N30.90 ; Hypokalemia E87.6 ; Mixed hyperlipidemia E78.2 and Hematuria, unspecified type R31.9 [place] [address] [address] Nov, Hypokalemia E87.6 ; Mixed hyperlipidemia E78.2 and Hematuria, unspecified type R31.9 [place] [address] [address] Nov, [place] [address] [address] Nov, Hypokalemia E87.6 [place] [address] [address] Nov, [place] [address] [address] Nov, Abnormal renal ultrasound R93.429 [place] [address] [place] [address] Nov, Abnormal renal ultrasound R93.429 [place] [address] [address] Nov, Hematuria, unspecified type R31.9 and Ne uroforaminal stenosis of spine M99.89 [place] [address] [address] Nov, Dysuria R30.0 [place] [address] [address] Oct, Lateral epicondylitis, right elbow M77.1 1 [place] [address] [address] Oct, Neuroforaminal stenosis of spine M99.89 ; Visit for TB skin test Z11.1 and Essential hypertension I10 [place] [address] [address] Oct, [place] [address] [address] Oct, Neuroforaminal stenosis of spine M99.89 [place] [address] [address] Oct, Visit for TB skin test Z11.1 [place] [address] [address] Oct, Cystitis without hematuria N30.90 [place] [address] [address] Sep, Screening breast examination Z12.39 [place] [address] [address] Sep, Dysuria R30.0 and Cystitis without hemat uria N30.90 [place] [address] [address] Sep, Essential hypertension I10 and Neurofora ingrid stenosis of spine M99.89 [place] [address] [address] Sep, Abnormal glucose R73.09 [place] [address] [address] August, Lateral epicondylitis, right elbow M77.1 1 [place] [address] [address] August, Screen for STD (sexually transmitted dis ease) Z11.3 [place] [address] [address] August, Neuroforaminal stenosis of spine M99.89 ; Mixed hyperlipidemia E78.2 ; Elevated fasting glucose R73.01 ; Screening mammogram, encounter for Z12.31 and Encounter for well woman exam without gynecological exam Z00.00 [place] [address] [address] August, Neuroforaminal stenosis of spine M99.89 [place] [address] [address] August, Essential hypertension I10 ; Hypokalemia E87.6 and Mixed hyperlipidemia E78.2 [place] [address] [address] Jul, [place] [address] [address] Jul, Neuroforaminal stenosis of spine M99.89 [place] [address] [address] Jul, Lateral epicondylitis, right elbow M77.1 1 [place] [address] [address] Jul, [place] [address] [address] Jun, High ankle sprain of right lower extremi ty, initial encounter S93.431A [place] [address] [address] Jun, Essential hypertension I10 [place] [address] [address] Jun, [place] [address] [address] Jun, [place] [address] [address] Jun, Neuroforaminal stenosis of spine M99.89 [place] [address] [address] Jun, Pain of right upper extremity M79.601 an d Essential hypertension I10 [place] [address] [address] Jun, [place] [address] [address] Jun, Dysuria R30.0 ; Acute cystitis with keturah turia N30.01 and Screen for STD (sexually transmitted disease) Z11.3 [place] [address] [address] May, Chronic pain due to trauma G89.21 [place] [address] [address] May, Essential hypertension I10 [address] [address] May, Neuroforaminal stenosis of spine M99.89 [place] [address] [address] Apr, Allergic reaction, initial encounter T78 .40XA [place] [address] [address] Apr, Low back pain, unspecified back pain lat erality, unspecified chronicity, with sciatica presence unspecified M54.5 ; Acute cystitis with hematuria N30.01 ; Neuroforaminal stenosis of spine M99.89 ; Bilateral acute serous otitis media, recurrence not specified H65.03 ; Mixed hyperlipidemia E78.2 ; Essential hypertension I10 ; Immunization counseling Z71.89 and Encounter for immunization Z23 [place] [address] [address] 08 Apr, 2017 Neck pain M54.2 [place] [address] [address] Mar, Neuroforaminal stenosis of spine M99.89 [place] [address] [address] Mar, Pharyngitis due to other organism J02.8 [place] [address] [address] Feb, Neuroforaminal stenosis of spine M99.89 [place] [address] [address] 08 Feb, 2017 UTI (urinary tract infection) N39.0 [place] [address] [address] Feb, Recent urinary tract infection Z87.440 ; Neuroforaminal stenosis of spine M99.89 ; Neck pain M54.2 ; Chronic pain due to trauma G89.21 and Recurrent UTI N39.0 [place] [address] [address] Feb, [place] [address] [address] Jan, Neuroforaminal stenosis of spine M99.89 [place] [address] [address] Dec, Neuroforaminal stenosis of spine M99.89 [place] [address] [address] 18 Dec, 2016 Acute seasonal allergic rhinitis due to pollen J30.1 [place] [address] [address] 08 Dec, 2016 [place] [address] [address] Dec, Acute seasonal allergic rhinitis, unspec ified trigger J30.2 ; Allergic conjunctivitis of both eyes H10.13 and Dysfunction of both eustachian tubes H69.83 [place] [address] [address] 07 Dec, 2016 [place] [address] [address] 06 Dec, 2016 Nevus D22.9 [place] [address] [address] Nov, Chronic pain due to trauma G89.21 and Ne uroforaminal stenosis of spine M99.[address] [address] Nov, Neuroforaminal stenosis of spine M99.89 ; Essential hypertension I10 ; Mixed hyperlipidemia E78.2 ; Hypokalemia E87.6 ; Neck pain M54.2 and Nevus D22.9 [place] [address] [address] Oct, Neuroforaminal stenosis of spine M99.[address] [address] Sep, Neuroforaminal stenosis of spine M99.89 [place] [address] [address] Sep, [place] [address] [address] August, [address] [address] August, Neck pain M54.2 and Neuroforaminal steno sis of spine M99.89 [place] [address] [address] August, Routine gynecological examination Z01.41 9 and Screening breast examination Z12.[address] [address] Jul, [facility] [address] [address] Jul, [facility] [address] [address] Jul, Neuroforaminal stenosis of spine M99.89 [facility] [address] [address] Jul, [facility] [address] [address] Jul, 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 [facility] [address] [address] Jul, [facility] [address] [address] Jul, [facility] [address] [address] Jun, Neuroforaminal stenosis of spine M99.89 [facility] [address] [address] Jun, Uterine leiomyoma, unspecified location D25.9 and Allergic reaction caused by a drug, initial encounter T78.40XA [facility] [address] [address] Jun, [facility] [address] [address] May, UTI symptoms R39.9 and Pain of right sac roiliac joint M53.3 [facility] [address] [address] May, Neuroforaminal stenosis of spine M99.89 [facility] [address] [address] May, [facility] [address] [address] May, Acute mucoid otitis media of left ear H6 5.112 and Acute non-recurrent maxillary sinusitis J01.00 [place] [address] [address] May, Acute bacterial conjunctivitis of both e yes H10.33 ; Left arm pain M79.602 and Hypokalemia E87.6 [place] [address] [address] Apr, [place] [address] [address] Apr, Neuroforaminal stenosis of spine M99.89 ; Neck pain M54.2 ; Chronic pain due to trauma G89.21 ; Mixed hyperlipidemia E78.2 ; Essential hypertension I10 and Hypokalemia E87.6 [place] [address] [address] Mar, Oral candidiasis B37.0 ; Neuroforaminal stenosis of spine M99.89 ; Neck pain M54.2 and Chronic pain due to trauma G89.21 [place] [address] [address] Feb, [place] [address] [address] Feb, [place] [address] [address] Feb, UTI (urinary tract infection) N39.0 [place] [address] [address] Feb, Dysuria R30.0 [place] [address] [address] 08 Feb, 2016 Dysuria R30.0 [place] [address] [address] 02 Feb, 2016 Neuroforaminal stenosis of spine M99.89 ; Neck pain M54.2 ; Essential hypertension I10 ; Chronic pain due to trauma G89.21 ; Dysuria R30.0 ; Abnormal MRI, shoulder R93.8 and Acute cystitis without hematuria N30.00 [facility] [address] [place] [id number] [place] [address] Jan, [facility] [address] [address] Jan, [facility] [address] [address] Jan, [facility] [address] [address] Jan, Abnormal MRI R93.8 [facility] [address] [address] 29 Dec, 2015 [facility] [address] [facility] [id number] [place] [address] 15 Dec, 2015 Acute pain of left shoulder M25.512 [facility] [address] [address] 09 Dec, 2015 [facility] [address] [address] 08 Dec, 2015 [facility] [address] [address] 07 Dec, 2015 Acute pain of left shoulder M25.512 [facility] [address] [address] Nov, [facility] [address] [address] Nov, Neuroforaminal stenosis of spine M99.89 ; Neck pain M54.2 ; Abnormal mammogram R92.8 ; Essential hypertension I10 and Chronic pain due to trauma G89.21 [facility] [address] [address] Nov, [facility] [address] [address] Oct, Acute stress disorder F43.0 [facility] [address] [address] Oct, [facility] [address] [place] [id number] [place] [address] Oct, [facility] [address] [place] [id number] [place] [address] Oct, [facility] [address] [place] [id number] [place] [address] Sep, [facility] [address] [place] [id number] [place] [address] August, [facility] [address] [place] [id number] [place] [address] Jul, Neuroforaminal stenosis of spine M99.89 ; Neck pain M54.2 ; Abnormal mammogram R92.8 and Essential hypertension I10 [facility] [address] [place] [id number] [place] [address] Jul, [facility] [address] [place] [id number] [place] [address] Jul, [facility] [address] [place] [id number] [place] [address] Jul, Abnormal mammogram R92.8 [facility] [address] [place] [id number] [place] [address] Jul, [facility] [address] [place] [id number] [place] [address] Jul, UTI (urinary tract infection) N39.0 [facility] [address] [place] [id number] [place] [address] Jul, Dysuria R30.0 [facility] [address] [place] [id number] [place] [address] Jun, [facility] [address] [place] [id number] [place] [address] Jun, [facility] [address] [place] [id number] [place] [address] Jun, Hypokalemia E87.6 and Hematuria R31.9 [facility] [address] [address] Jun, Hypokalemia E87.6 [place] [address] [address] Jun, [place] [address] [address] Jun, Hypokalemia E87.6 [place] [address] [address] Jun, Hypokalemia E87.6 [place] [address] [address] 15 Jun, 2015 Neuroforaminal stenosis of spine M99.89 ; Hypokalemia E87.6 ; Neck pain M54.2 ; Essential hypertension I10 ; Mixed hyperlipidemia E78.2 and Screening breast examination Z12.39 [place] [address] [address] 08 Jun, 2015 Dysuria R30.0 ; UTI (urinary tract infec tion) N39.0 and Hematuria R31.9 [place] [address] [address] May, [place] [address] [address] 18 May, 2015 High risk sexual behavior Z72.51 ; Hypok alemia E87.6 ; Neuroforaminal stenosis of spine M99.89 ; Neck pain M54.2 ; Essential hypertension I10 ; Mixed hyperlipidemia E78.2 ; STD exposure Z20.2 and Concern about STD in female without diagnosis Z71.1 [place] [address] [address] 16 May, 2015 Neuroforaminal stenosis of spine M99.89 ; Neck pain M54.2 ; Hypokalemia E87.6 ; Essential hypertension I10 and Mixed hyperlipidemia E78.2 [place] [address] [address] 11 May, 2015 [facility] [address] [facility] [id number] [address] [place] [address] 08 May, 2015 High risk sexual behavior Z7 2.51 ; STD exposure Z20.2 and Concern about STD in female without diagnosis Z71.1 [facility] [address] [address] 05 May, 2015 [facility] [address] [address] Apr, Neuroforaminal stenosis of spine M99.89 ; Mixed hyperlipidemia E78.2 ; Essential hypertension I10 and Hypokalemia E87.6 [place] [address] [address] Mar, [place] [address] [address] Mar, Hypokalemia E87.6 [place] [address] [address] Mar, Neuroforaminal stenosis of spine M99.89 ; Mixed hyperlipidemia E78.2 ; Neck pain M54.2 ; Essential hypertension I10 ; Abnormal fasting glucose R73.09 ; Hypokalemia E87.6 and Constipation K59.00 [place] [address] [address] Feb, Neuroforaminal stenosis of spine M99.89 ; Mixed hyperlipidemia E78.2 ; Neck pain M54.2 ; Essential hypertension I10 ; Abnormal fasting glucose R73.09 ; Hypokalemia E87.6 and Constipation K59.00 [place] [address] [address] Feb, Elevated fasting blood sugar R73.01 [place] [address] [address] Feb, Elevated fasting blood sugar R73.01 [place] [address] [address] Feb, Hair loss L65.9 [place] [address] [address] Feb, Sinusitis J32.9 ; Essential hypertension I10 and Hair loss L65.9 [place] [address] [address] Jan, [place] [address] [address] Jan, Essential hypertension I10 ; Neuroforami nal stenosis of spine M99.89 ; Neck pain M54.2 ; Mixed hyperlipidemia E78.2 and Anxiety F41.9 [place] [address] [address] Jan, [place] [address] [address] Jan, Mixed hyperlipidemia E78.2 ; Essential ( primary) hypertension I10 ; Strain of muscle, fascia and tendon at neck level, subsequent encounter S16.1XXD and Tension-type headache, unspecified, not intractable G44.209 [place] [address] [address] Dec, Lumbar back pain 724.2 and Neuroforamina l stenosis of spine 724.00 [place] [address] [address] Nov, [address] [address] Nov, Lumbar back pain 724.2 and Neuroforamina l stenosis of spine 724.00 [place] [address] [address] Nov, Edema 782.3 ; Lumbar back pain 724.2 ; E ssential hypertension, benign 401.1 ; Hyperlipemia 272.4 ; Neuroforaminal stenosis of spine 724.00 and Post- concussion headache 339.20 [place] [address] [address] Nov, [place] [id number] [place] [address] Nov, [place] [address] [address] Oct, Essential hypertension, benign 401.1 [place] [address] [address] Oct, Edema 782.3 ; Lumbar back pain 724.2 ; E ssential hypertension, benign 401.1 ; Hyperlipemia 272.4 ; Neuroforaminal stenosis of spine 724.00 and Post- concussion headache 339.20 [place] [address] [address] Oct, [place] [address] [address] Oct, Edema 782.3 [place] [address] [address] Oct, Lumbar back pain 724.2 [place] [address] [address] Oct, Cervicalgia 723.1 ; Lumbar back pain 724 .2 and High risk medication use V58.69 [place] [address] [address] Sep, [place] [address] [address] Sep, Lumbar strain 847.2 [place] [address] [address] August, Edema 782.3 and Eustachian tube dysfunct ion 381.81 [place] [address] [address] August, [place] [address] [address] August, Eustachian tube dysfunction 381.81 [place] [address] [address] 29 Jul, 2014 Otalgia 388.70 and Otitis media 382.9 [facility] [address] [place] [id number] [place] [address] Jul, [facility] [place] [facility] [id number] [place] [address] 28 Jul, 2014 [facility] [address] [id number] [place] [address] 28 Jul, 2014 [facility] [place] [facility] [id number] [place] [address] 14 Jul, 2014 [facility] [place] [facility] [id number] [place] [address] Jul, [facility] [place] [facility] [address] [place] [id number] [place] [address] Jun, [facility] [place] [facility] [address] [place] [id number] [place] [address] Jun, [facility] [place] [facility] [address] [id number] [place] [address] 16 Jun, 2014 [facility] [place] [facility] [address] [id number] [place] [address] May, [facility] [place] [facility] [address] [place] [id number] [place] [address] May, [facility] [place] [facility] [address] [place] [id number] [place] [address] May, [facility] [place] [facility] [id number] [place] [address] May, 2014 [facility] [id number] [place] [address] May, [facility] [id number] [place] [address] May, 2014 [facility] [id number] [place] [address] 09 May, 2014 [facility] [id number] [place] [address] May, [facility] [address] [facility] [id number] [place] [address] May, [facility] [address] [facility] [id number] [place] [address] May, [facility] [address] [id number] [place] [address] Apr, [facility] [address] [id number] [place] [address] Apr, [facility] [address] [facility] [id number] [place] [address] Apr, [facility] [address] [id number] [place] [address] Apr, [facility] [address] [id number] [place] [address] Apr, [facility] [address] [id number] [place] [address] Apr, [facility] [address] [id number] [place] [address] Apr, [facility] [address] [id number] [place] [address] Apr, [facility] [address] [id number] [place] [address] Apr, [facility] [address] [id number] [place] [address] Apr, [facility] [address] [id number] [place] [address] Apr, [facility] [address] [id number] [place] [address] Apr, [facility] [address] [id number] [place] [address] Apr, [facility] [address] [id number] [place] [address] Apr, [facility] [address] [id number] [place] [address] Apr, [facility] [address] [id number] [place] [address] Mar, [facility] [address] [id number] [place] [address] Mar, [facility] [address] [id number] [place] [address] Mar, [facility] [address] [id number] [place] [address] Mar, [facility] [address] [id number] [place] [address] Feb, [facility] [address] [id number] [place] [address] Feb, [facility] [address] [id number] [place] [address] Feb, [facility] [address] [id number] [place] [address] Feb, [facility] [address] [id number] [place] [address] Jan, [facility] [address] [id number] [place] [address] Jan, [facility] [address] [id number] [place] [address] Jan, [facility] [address] [id number] [place] [address] Jan, [facility] [address] [id number] [place] [address] Jan, [facility] [id number] [place] [address] Jan, [facility] [address] [id number] [place] [address] Jan, [facility] [address] [id number] [place] [address] Jan, [facility] [address] [id number] [place] [address] Dec, 2013 [facility] [address] [facility] [id number] [place] [address] Dec, 2013 [facility] [address] [facility] [id number] [place] [address] Dec, 2013 [facility] [address] [id number] [place] [address] Dec, 2013 [facility] [address] [facility] [id number] [place] [address] Oct, 2013 [facility] [address] [id number] [place] [address] Oct, 2013 [facility] [address] [id number] [place] [address] Oct, 2013 [facility] [address] [id number] [place] [address] Oct, 2013 [facility] [address] [id number] [place] [address] Oct, 2013 [facility] [address] [id number] [place] [address] Oct, 2013 [facility] [address] [id number] [place] [address] Oct, 2013 [facility] [address] [id number] [place] [address] Oct, 2013 [facility] [address] [id number] [place] [address] Sep, [facility] [address] [facility] [id number] [place] [address] Sep, [facility] [address] [id number] [place] [address] Sep, [facility] [address] [id number] [place] [address] Sep, [facility] [address] [id number] [place] [address] Sep, [facility] [address] [facility] [id number] [place] [address] Sep, [facility] [address] [facility] [id number] [place] [address] Sep, [facility] [address] [id number] [place] [address] Sep, [facility] [address] [id number] [place] [address] Sep, [facility] [address] [facility] [id number] [place] [address] Sep, [facility] [address] [id number] [place] [address] August, [facility] [address] [id number] [place] [address] August, [facility] [address] [id number] [place] [address] August, [facility] [address] [id number] [place] [address] August, [facility] [address] [id number] [place] [address] August, [facility] [address] [id number] [place] [address] August, [facility] [address] [id number] [place] [address] August, [facility] [address] [id number] [place] [address] August, [facility] [address] [id number] [place] [address] August, [facility] [address] [id number] [place] [address] August, [facility] [address] [id number] [place] [address] August, [facility] [address] [id number] [place] [address] August, [facility] [address] [id number] [place] [address] Jul, [facility] [address] [facility] [id number] [place] [address] Jul, [facility] [address] [id number] [place] [address] Jul, [facility] [address] [id number] [place] [address] Jul, [facility] [address] [facility] [id number] [place] [address] Jul, [facility] [address] [id number] [place] [address] Jul, [facility] [address] [id number] [place] [address] Jun, [facility] [address] [id number] [place] [address] Jun, [facility] [address] [id number] [place] [address] May, [facility] [address] [id number] [place] [address] May, [facility] [address] [id number] [place] [address] Apr, [facility] [address] [id number] [place] [address] Apr, [facility] [address] [id number] [place] [address] Apr, [facility] [address] [id number] [place] [address] Apr, [facility] [address] [id number] [place] [address] Apr, [facility] [address] [id number] [place] [address] Apr, [facility] [address] [id number] [place] [address] Apr, [facility] [address] [id number] [place] [address] Apr, [facility] [address] [id number] [place] [address] Apr, [facility] [address] [id number] [place] [address] Apr, [facility] [address] [id number] [place] [address] Apr, [facility] [address] [id number] [place] [address] Apr, [facility] [address] [id number] [place] [address] Apr, [facility] [id number] [place] [address] Mar, [facility] [address] [id number] [place] [address] Mar, [facility] [address] [id number] [place] [address] Mar, [facility] [address] [id number] [place] [address] Mar, [facility] [address] [id number] [place] [address] Feb, [facility] [address] [id number] [place] [address] Feb, [facility] [address] [id number] [place] [address] Feb, [facility] [address] [id number] [place] [address] 08 Feb, 2013 [facility] [address] [id number] [place] [address] 14 Jan, 2013 [facility] [address] [id number] [place] [address] 14 Jan, 2013 [facility] [address] [facility] [id number] [place] [address] Jan, [facility] [address] [facility] [id number] [place] [address] 11 Jan, 2013 [facility] [address] [id number] [place] [address] 10 Jan, 2013 [facility] [address] [id number] [place] [address] 10 Jan, 2013 [facility] [address] [facility] [id number] [place] [address] Jan, [facility] [address] [id number] [place] [address] Jan, [facility] [address] [id number] [place] [address] Jan, [facility] [address] [id number] [place] [address] 26 Dec, 2012 [facility] [address] [id number] [place] [address] 16 Dec, 2012 [facility] [address] [id number] [place] [address] 16 Dec, 2012 [facility] [address] [id number] [place] [address] 13 Dec, 2012 [facility] [address] [id number] [place] [address] 17 Nov, 2012 [facility] [address] [id number] [place] [address] 17 Nov, 2012 [facility] [address] [id number] [place] [address] 14 Nov, 2012 [facility] [address] [id number] [place] [address] 05 Nov, 2012 [facility] [address] [id number] [place] [address] 18 Oct, 2012 [facility] [address] [id number] [place] [address] Sep, [facility] [address] [id number] [place] [address] August, [facility] [address] [id number] [place] [address] August, [facility] [address] [id number] [place] [address] August, [facility] [address] [id number] [place] [address] August, [facility] [address] [id number] [place] [address] August, [facility] [address] [id number] [place] [address] August, [facility] [address] [id number] [place] [address] August, [facility] [address] [id number] [place] [address] August, [facility] [address] [id number] [place] [address] August, [facility] [address] [id number] [place] [address] August, [facility] [address] [id number] [place] [address] August, [facility] [address] [id number] [place] [address] August, [facility] [address] [id number] [place] [address] Jul, [facility] [address] [id number] [place] [address] Jul, [facility] [address] [id number] [place] [address] 18 Jul, 2012 [facility] [address] [id number] [place] [address] 15 Jul, 2012 [facility] [address] [id number] [place] [address] 09 Jul, 2012 [facility] [address] [id number] [place] [address] 08 Jul, 2012 [facility] [address] [id number] [place] [address] Jul, [facility] [address] [id number] [place] [address] Jul, [facility] [address] [id number] [place] [address] Jul, [facility] [address] [id number] [place] [address] Jul, [facility] [address] [id number] [place] [address] Jul, [facility] [address] [id number] [place] [address] Jun, [facility] [address] [id number] [place] [address] Jun, [facility] [address] [id number] [place] [address] Jun, [facility] [address] [id number] [place] [address] Jun, [facility] [address] [id number] [place] [address] May, [facility] [address] [id number] [place] [address] 14 May, 2012 [facility] [address] [id number] [place] [address] 05 May, 2012 [facility] [address] [id number] [place] [address] 04 May, 2012 [facility] [address] [id number] [place] [address] 04 May, 2012 [facility] [address] [id number] [place] [address] May, [facility] [address] [id number] [place] [address] Apr, [facility] [address] [id number] [place] [address] Apr, [facility] [address] [id number] [place] [address] Apr, [facility] [address] [id number] [place] [address] Apr, [facility] [address] [id number] [place] [address] Mar, [facility] [address] [id number] [place] [address] Mar, [facility] [address] [id number] [place] [address] Mar, [facility] [address] [id number] [place] [address] Mar, [facility] [address] [id number] [place] [address] Mar, [facility] [address] [id number] [place] [address] Mar, [facility] [address] [id number] [place] [address] Mar, [facility] [address] [id number] [place] [address] Feb, [facility] [address] [id number] [place] [address] Feb, [facility] [id number] [place] [address] Feb, [facility] [address] [id number] [place] [address] Feb, [facility] [address] [id number] [place] [address] Jan, [facility] [address] [id number] [place] [address] Jan, [facility] [address] [id number] [place] [address] Jan, [facility] [address] [id number] [place] [address] Jan, [facility] [address] [id number] [place] [address] Jan, [facility] [address] [id number] [place] [address] Jan, [facility] [address] [id number] [place] [address] Dec, [facility] [address] [id number] [place] [address] Dec, [facility] [address] [id number] [place] [address] Nov, [facility] [address] [id number] [place] [address] Sep, [facility] [address] [id number] [place] [address] August, [facility] [address] [id number] [place] [address] August, [facility] [address] [id number] [place] [address] August, [facility] [address] [id number] [place] [address] August, [facility] [address] [id number] [place] [address] August, [facility] [address] [id number] [place] [address] Jun, [facility] [address] [id number] [place] [address] Jun, [facility] [address] [id number] [place] [address] Apr, [facility] [address] [id number] [place] [address] Apr, [facility] [address] [id number] [place] [address] Mar, [facility] [address] [id number] [place] [address] Feb, [facility] [address] [id number] [place] [address] Feb, [facility] [address] [id number] [place] [address] 14 Feb, 2011 [facility] [address] [id number] [place] [address] 17 Jan, 2011 [facility] [address] [id number] [place] [address] 15 Jan, 2011 [facility] [address] [id number] [place] [address] 15 Jan, 2011 [facility] [address] [id number] [place] [address] 14 Jan, 2011 [facility] [address] [id number] [place] [address] 15 May, 2010 [facility] [address] [id number] [place] [address] Mar, [facility] [address] [id number] [place] [address] Oct, [facility] [address] [id number] [place] [address] Sep, [facility] [address] [id number] [place] [address] Mar, [facility] [address] [id number] [place] [address] Jan, [facility] [address] [id number] [place] [address] Jan, [facility] [address] [id number] [place] [address] May, IMMUNIZATIONS No Known Immunizations SOCIAL HISTORY [...]
--- OUTSIDE RECORDS SUMMARY | 2019-11-23 05:48 | XMS REPORT ---
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 Active 247969570543 Problem Neck pain M54.2 Active 16594667 Problem Chronic pain due to trauma G89.21 Act juanis [id number] Problem Hematuria, unspecified type R31.9 Ac tive 04600029 Problem Seasonal allergies J30.2 Active 4 78344647 Problem Abnormal glucose R73.09 Active 102 169514 Problem Anxiety F41.9 Active 89417539 Problem Essential hypertension I10 Active 34439260 Problem Mixed hyperlipidemia E78.2 Active 15667020 Problem Hypokalemia E87.6 Active 85254740 ALLERGIES No Information ENCOUNTERS Encounter Location Date Diagnosis [place] [address] [address] 14 May, 2019 [place] [address] [address] Apr, Essential hypertension I10 and Mixed hyp erlipidemia E78.2 [place] [address] [address] Mar, Neuroforaminal stenosis of 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 [place] [address] [address] Mar, Epicondylitis, lateral, left M77.12 [place] [address] [address] Mar, [place] [address] [address] Mar, Neuroforaminal stenosis of spine M99.89 [place] [address] [address] Feb, Neuroforaminal stenosis of spine M99.89 ; Essential hypertension I10 ; Mixed hyperlipidemia E78.2 ; Encounter for immunization Z23 and Seasonal allergies J30.2 [place] [address] [address] Jan, Neuroforaminal stenosis of spine M99.89 [place] [address] [address] Dec, Neuroforaminal stenosis of spine M99.89 [place] [address] [address] Dec, Neuroforaminal stenosis of spine M99.89 [place] [address] [address] Nov, [place] [address] [address] Nov, Neuroforaminal stenosis of spine M99.89 [place] [address] [address] Nov, Acute non-recurrent maxillary sinusitis J01.00 [place] [address] [address] Oct, Hypokalemia E87.6 [facility] [address] [facility] [id number] [place] [address] Oct, Wasp sting, undetermined int ent, initial encounter T63.464A and Cellulitis of left lower extremity L03.116 [place] [address] [address] Oct, Neuroforaminal stenosis of spine M99.89 [place] [address] [address] Sep, [place] [address] [address] 24 Sep, 2018 [place] [address] [address] 18 Sep, 2018 Routine screening for STI (sexually veronica smitted infection) Z11.3 [place] [address] [address] 14 Sep, 2018 Routine screening for STI (sexually veronica smitted infection) Z11.3 ; Well woman exam with routine gynecological exam Z01.419 and Breast cancer screening Z12.39 [place] [address] [address] 10 Sep, 2018 Neuroforaminal stenosis of spine M99.89 [place] [address] [address] August, Neuroforaminal stenosis of spine M99.89 [place] [address] [address] August, Neuroforaminal stenosis of spine M99.89 ; Chronic pain due to trauma G89.21 and Mixed hyperlipidemia E78.2 [place] [address] [address] Jul, Viral upper respiratory illness J06.9 an d Acute non-recurrent frontal sinusitis J01.10 [place] [address] [address] Jul, Congestion of nasal sinus R09.81 [place] [address] [address] Jul, Neuroforaminal stenosis of spine M99.89 and Essential hypertension I10 [place] [address] [address] May, Neuroforaminal stenosis of spine M99.89 [place] [address] [address] May, [place] [address] [address] May, Congestion of nasal sinus R09.81 [place] [address] [address] May, [facility] [address] [address] Apr, Neuroforaminal stenosis of spine M99.89 [place] [address] [address] Apr, Neuroforaminal stenosis of spine M99.89 and Chronic pain due to trauma G89.21 [place] [address] [address] Mar, UTI (urinary tract infection) N39.0 [place] [address] [address] Mar, Vertigo R42 [place] [address] [address] Mar, Neuroforaminal stenosis of spine M99.89 [place] [address] [address] Feb, Extensor tendon disruption M67.89 [place] [address] [address] Feb, Neuroforaminal stenosis of spine M99.89 and High risk medication use Z79.899 [place] [address] [address] Jan, Hypokalemia E87.6 [place] [address] [address] Jan, Flank pain R10.9 and Acute right-sided l ow back pain without sciatica M54.5 [place] [address] [address] Jan, Hypokalemia E87.6 [place] [address] [address] Jan, [place] [address] [place] [address] Jan, URI, acute J06.9 [place] [address] [address] 05 Jan, 2018 Neuroforaminal stenosis of spine M99.89 [place] [address] [place] [address] 13 Dec, 2017 Lateral epicondylitis, right elbow M77.1 1 [place] [address] [address] 11 Dec, 2017 Allergic rhinitis due to pollen, unspeci fied seasonality J30.1 and Allergic conjunctivitis of both eyes H10.13 [place] [address] [address] 10 Dec, 2017 Neuroforaminal stenosis of spine M99.89 [place] [address] [address] 06 Dec, 2017 Mixed hyperlipidemia E78.2 [place] [address] [address] 05 Dec, 2017 Abnormal glucose R73.09 ; Abnormal renal ultrasound R93.429 ; Dysuria R30.0 ; Cystitis without hematuria N30.90 ; Hypokalemia E87.6 ; Mixed hyperlipidemia E78.2 and Hematuria, unspecified type R31.9 [place] [address] [address] Nov, Hypokalemia E87.6 ; Mixed hyperlipidemia E78.2 and Hematuria, unspecified type R31.9 [place] [address] [address] Nov, [address] [address] Nov, Hypokalemia E87.6 [place] [address] [address] Nov, [place] [address] [address] Nov, Abnormal renal ultrasound R93.429 [place] [address] [address] Nov, Abnormal renal ultrasound R93.429 [place] [address] [address] Nov, Hematuria, unspecified type R31.9 and Ne uroforaminal stenosis of spine M99.89 [place] [address] [address] Nov, Dysuria R30.0 [place] [address] [address] Oct, Lateral epicondylitis, right elbow M77.1 1 [place] [address] [address] Oct, Neuroforaminal stenosis of spine M99.89 ; Visit for TB skin test Z11.1 and Essential hypertension I10 [place] [address] [address] Oct, [place] [address] [address] Oct, Neuroforaminal stenosis of spine M99.89 [place] [address] [address] Oct, Visit for TB skin test Z11.1 [place] [address] [address] Oct, Cystitis without hematuria N30.90 [place] [address] [address] Sep, Screening breast examination Z12.39 [place] [address] [address] Sep, Dysuria R30.0 and Cystitis without hemat uria N30.90 [place] [address] [address] 14 Sep, 2017 Essential hypertension I10 and Neurofora ingrid stenosis of spine M99.89 [place] [address] [address] 04 Sep, 2017 Abnormal glucose R73.[address] [address] August, Lateral epicondylitis, right elbow M77.1 1 [place] [address] [address] August, Screen for STD (sexually transmitted dis ease) Z11.[address] [address] August, Neuroforaminal stenosis of spine M99.89 ; Mixed hyperlipidemia E78.2 ; Elevated fasting glucose R73.01 ; Screening mammogram, encounter for Z12.31 and Encounter for well woman exam without gynecological exam Z00.[address] [address] August, Neuroforaminal stenosis of spine M99.[address] [address] August, Essential hypertension I10 ; Hypokalemia E87.6 and Mixed hyperlipidemia E78.[address] [address] Jul, [place] [address] [address] Jul, Neuroforaminal stenosis of spine M99.89 [place] [address] [address] Jul, Lateral epicondylitis, right elbow M77.1 1 [place] [address] [address] Jul, [place] [address] [address] Jun, High ankle sprain of right lower extremi ty, initial encounter S93.431A [place] [address] [address] Jun, Essential hypertension I10 [place] [address] [address] Jun, [place] [address] [address] Jun, [place] [address] [address] Jun, Neuroforaminal stenosis of spine M99.89 [place] [address] [address] Jun, Pain of right upper extremity M79.601 an d Essential hypertension I10 [place] [address] [address] Jun, [place] [address] [address] Jun, Dysuria R30.0 ; Acute cystitis with keutrah turia N30.01 and Screen for STD (sexually transmitted disease) Z11.3 [place] [address] [address] May, Chronic pain due to trauma G89.21 [place] [address] [address] May, Essential hypertension I10 [place] [address] [address] May, Neuroforaminal stenosis of spine M99.89 [place] [address] [address] Apr, Allergic reaction, initial encounter T78 .40XA [place] [address] [address] Apr, Low back pain, unspecified back pain lat erality, unspecified chronicity, with sciatica presence unspecified M54.5 ; Acute cystitis with hematuria N30.01 ; Neuroforaminal stenosis of spine M99.89 ; Bilateral acute serous otitis media, recurrence not specified H65.03 ; Mixed hyperlipidemia E78.2 ; Essential hypertension I10 ; Immunization counseling Z71.89 and Encounter for immunization Z23 [place] [address] [address] 08 Apr, 2017 Neck pain M54.2 [place] [address] [address] 26 Mar, 2017 Neuroforaminal stenosis of spine M99.89 [place] [address] [address] Mar, Pharyngitis due to other organism J02.8 [place] [address] [address] Feb, Neuroforaminal stenosis of spine M99.89 [place] [address] [address] 08 Feb, 2017 UTI (urinary tract infection) N39.0 [place] [address] [address] 07 Feb, 2017 Recent urinary tract infection Z87.440 ; Neuroforaminal stenosis of spine M99.89 ; Neck pain M54.2 ; Chronic pain due to trauma G89.21 and Recurrent UTI N39.0 [place] [address] [address] 03 Feb, 2017 [place] [address] [address] Jan, Neuroforaminal stenosis of spine M99.89 [place] [address] [address] Dec, Neuroforaminal stenosis of spine M99.89 [place] [address] [address] 18 Dec, 2016 Acute seasonal allergic rhinitis due to pollen J30.1 [place] [address] [address] 08 Dec, 2016 [place] [address] [address] 08 Dec, 2016 Acute seasonal allergic rhinitis, unspec ified trigger J30.2 ; Allergic conjunctivitis of both eyes H10.13 and Dysfunction of both eustachian tubes H69.83 [place] [address] [address] 07 Dec, 2016 [place] [address] [address] Dec, Nevus D22.[address] [address] Nov, Chronic pain due to trauma G89.21 and Ne uroforaminal stenosis of spine M99.[address] [address] Nov, Neuroforaminal stenosis of spine M99.89 ; Essential hypertension I10 ; Mixed hyperlipidemia E78.2 ; Hypokalemia E87.6 ; Neck pain M54.2 and Nevus D22.[address] [address] Oct, Neuroforaminal stenosis of spine M99.[address] [address] Sep, Neuroforaminal stenosis of spine M99.89 [place] [address] [address] Sep, [address] [address] August, [address] [address] August, Neck pain M54.2 and Neuroforaminal steno sis of spine M99.[address] [place] [address] August, Routine gynecological examination Z01.41 9 and Screening breast examination Z12.39 [facility] [address] [address] Jul, [facility] [address] [address] Jul, [facility] [address] [address] Jul, Neuroforaminal stenosis of spine M99.89 [facility] [address] [address] Jul, [place] [address] [address] Jul, 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 [place] [address] [address] Jul, [facility] [address] [address] Jul, [facility] [address] [address] Jun, Neuroforaminal stenosis of spine M99.89 [place] [address] [address] Jun, Uterine leiomyoma, unspecified location D25.9 and Allergic reaction caused by a drug, initial encounter T78.40XA [facility] [address] [address] Jun, [facility] [address] [address] May, UTI symptoms R39.9 and Pain of right sac roiliac joint M53.3 [place] [address] [address] May, Neuroforaminal stenosis of spine M99.89 [place] [address] [address] May, [place] [address] [address] May, Acute mucoid otitis media of left ear H6 5.112 and Acute non-recurrent maxillary sinusitis J01.00 [place] [address] [address] May, Acute bacterial conjunctivitis of both e yes H10.33 ; Left arm pain M79.602 and Hypokalemia E87.6 [place] [address] [address] Apr, [place] [address] [address] Apr, Neuroforaminal stenosis of spine M99.89 ; Neck pain M54.2 ; Chronic pain due to trauma G89.21 ; Mixed hyperlipidemia E78.2 ; Essential hypertension I10 and Hypokalemia E87.6 [place] [address] [address] Mar, Oral candidiasis B37.0 ; Neuroforaminal stenosis of spine M99.89 ; Neck pain M54.2 and Chronic pain due to trauma G89.21 [place] [address] [address] Feb, [place] [address] [address] Feb, [place] [address] [address] Feb, UTI (urinary tract infection) N39.0 [place] [address] [address] 09 Feb, 2016 Dysuria R30.0 [place] [address] [address] 08 Feb, 2016 Dysuria R30.0 [place] [address] [address] Feb, Neuroforaminal stenosis of spine M99.89 ; Neck pain M54.2 ; Essential hypertension I10 ; Chronic pain due to trauma G89.21 ; Dysuria R30.0 ; Abnormal MRI, shoulder R93.8 and Acute cystitis without hematuria N30.00 [facility] [address] [id number] [place] [address] Jan, [facility] [address] [address] Jan, [facility] [address] [address] Jan, [facility] [address] [address] Jan, Abnormal MRI R93.8 [facility] [address] [id number] [place] [address] Dec, [facility] [address] [facility] [address] [id number] [place] [address] 15 Dec, 2015 Acute pain of left shoulder M25.512 [facility] [address] [address] 09 Dec, 2015 [facility] [address] [address] 08 Dec, 2015 [facility] [address] [id number] [place] [address] Dec, Acute pain of left shoulder M25.512 [facility] [address] [address] Nov, [facility] [address] [address] Nov, Neuroforaminal stenosis of spine M99.89 ; Neck pain M54.2 ; Abnormal mammogram R92.8 ; Essential hypertension I10 and Chronic pain due to trauma G89.21 [facility] [address] [address] Nov, [facility] [address] [place] [id number] [place] [address] Oct, Acute stress disorder F43.0 [facility] [address] [place] [id number] [place] [address] Oct, [facility] [address] [id number] [place] [address] Oct, [facility] [address] [place] [id number] [place] [address] Oct, [facility] [address] [place] [id number] [place] [address] Sep, [facility] [address] [place] [id number] [place] [address] August, [facility] [address] [place] [id number] [place] [address] Jul, Neuroforaminal stenosis of spine M99.89 ; Neck pain M54.2 ; Abnormal mammogram R92.8 and Essential hypertension I10 [facility] [address] [place] [id number] [place] [address] Jul, [facility] [address] [place] [id number] [place] [address] Jul, [facility] [address] [place] [id number] [place] [address] Jul, Abnormal mammogram R92.8 [facility] [address] [place] [id number] [place] [address] Jul, [facility] [address] [place] [id number] [place] [address] Jul, UTI (urinary tract infection) N39.0 [facility] [address] [place] [id number] [place] [address] Jul, Dysuria R30.0 [facility] [address] [place] [id number] [place] [address] Jun, [facility] [address] [place] [id number] [place] [address] 31 Jun, 2015 [place] [address] [address] Jun, Hypokalemia E87.6 and Hematuria R31.9 [place] [address] [address] Jun, Hypokalemia E87.6 [place] [address] [address] Jun, [place] [address] [address] Jun, Hypokalemia E87.6 [place] [address] [address] Jun, Hypokalemia E87.6 [place] [address] [address] Jun, Neuroforaminal stenosis of spine M99.89 ; Hypokalemia E87.6 ; Neck pain M54.2 ; Essential hypertension I10 ; Mixed hyperlipidemia E78.2 and Screening breast examination Z12.39 [place] [address] [address] Jun, Dysuria R30.0 ; UTI (urinary tract infec tion) N39.0 and Hematuria R31.9 [place] [address] [address] May, [place] [address] [address] May, High risk sexual behavior Z72.51 ; Hypok alemia E87.6 ; Neuroforaminal stenosis of spine M99.89 ; Neck pain M54.2 ; Essential hypertension I10 ; Mixed hyperlipidemia E78.2 ; STD exposure Z20.2 and Concern about STD in female without diagnosis Z71.1 [place] [address] [address] 16 May, 2015 Neuroforaminal stenosis of spine M99.89 ; Neck pain M54.2 ; Hypokalemia E87.6 ; Essential hypertension I10 and Mixed hyperlipidemia E78.2 [facility] [address] [address] 11 May, 2015 [facility] [address] [facility] [id number] [place] [address] 08 May, 2015 High risk sexual behavior Z7 2.51 ; STD exposure Z20.2 and Concern about STD in female without diagnosis Z71.1 [facility] [address] [address] 05 May, 2015 [facility] [address] [address] Apr, Neuroforaminal stenosis of spine M99.89 ; Mixed hyperlipidemia E78.2 ; Essential hypertension I10 and Hypokalemia E87.6 [place] [address] [address] Mar, [facility] [address] [address] Mar, Hypokalemia E87.6 [place] [address] [address] Mar, Neuroforaminal stenosis of spine M99.89 ; Mixed hyperlipidemia E78.2 ; Neck pain M54.2 ; Essential hypertension I10 ; Abnormal fasting glucose R73.09 ; Hypokalemia E87.6 and Constipation K59.00 [facility] [address] [address] Feb, Neuroforaminal stenosis of spine M99.89 ; Mixed hyperlipidemia E78.2 ; Neck pain M54.2 ; Essential hypertension I10 ; Abnormal fasting glucose R73.09 ; Hypokalemia E87.6 and Constipation K59.00 [place] [address] [address] Feb, Elevated fasting blood sugar R73.01 [place] [address] [address] Feb, Elevated fasting blood sugar R73.01 [place] [address] [address] Feb, Hair loss L65.9 [place] [address] [address] Feb, Sinusitis J32.9 ; Essential hypertension I10 and Hair loss L65.9 [place] [address] [address] Jan, [place] [address] [address] Jan, Essential hypertension I10 ; Neuroforami nal stenosis of spine M99.89 ; Neck pain M54.2 ; Mixed hyperlipidemia E78.2 and Anxiety F41.[address] [address] Jan, [address] [address] Jan, Mixed hyperlipidemia E78.2 ; Essential ( primary) hypertension I10 ; Strain of muscle, fascia and tendon at neck level, subsequent encounter S16.1XXD and Tension-type headache, unspecified, not intractable G44.209 [place] [address] [address] Dec, Lumbar back pain 724.2 and Neuroforamina l stenosis of spine 724.00 [place] [address] [address] Nov, [address] [address] Nov, Lumbar back pain 724.2 and Neuroforamina l stenosis of spine 724.[address] [address] Nov, Edema 782.3 ; Lumbar back pain 724.2 ; E ssential hypertension, benign 401.1 ; Hyperlipemia 272.4 ; Neuroforaminal stenosis of spine 724.00 and Post- concussion headache 339.20 [place] [address] [address] Nov, [facility] [address] [address] Nov, [place] [address] [address] Oct, Essential hypertension, benign 401.1 [place] [address] [address] Oct, Edema 782.3 ; Lumbar back pain 724.2 ; E ssential hypertension, benign 401.1 ; Hyperlipemia 272.4 ; Neuroforaminal stenosis of spine 724.00 and Post- concussion headache 339.20 [place] [address] [address] Oct, [place] [address] [address] Oct, Edema 782.3 [place] [address] [address] Oct, Lumbar back pain 724.2 [place] [address] [address] Oct, Cervicalgia 723.1 ; Lumbar back pain 724 .2 and High risk medication use V58.69 [place] [address] [address] Sep, [place] [address] [address] Sep, Lumbar strain 847.2 [place] [address] [address] August, Edema 782.3 and Eustachian tube dysfunct ion 381.81 [place] [address] [address] August, [facility] [address] [id number] [place] [address] August, Eustachian tube dysfunction 381.81 [facility] [address] [facility] [id number] [place] [address] Jul, Otalgia 388.70 and Otitis media 382.9 [facility] [address] [id number] [place] [address] Jul, [facility] [id number] [place] [address] Jul, [facility] [id number] [place] [address] Jul, [facility] [id number] [place] [address] 14 Jul, 2014 [facility] [id number] [place] [address] Jul, [facility] [id number] [place] [address] Jun, [facility] [id number] [place] [address] Jun, [facility] [id number] [place] [address] Jun, [facility] [id number] [place] [address] May, [facility] [id number] [place] [address] May, [facility] [id number] [place] [address] May, [facility] [id number] [place] [address] May, [facility] [id number] [place] [address] May, [facility] [id number] [place] [address] May, [facility] [address] [facility] [id number] [facility] [place] [address] May, [facility] [place] [facility] [address] 2001 [id number] [facility] [place] [address] May, [facility] [place] [facility] [address] [id number] [facility] [place] [address] May, [facility] [place] [facility] [address] [id number] [facility] [place] [address] May, [facility] [place] [facility] [address] [facility] 2001 [id number] [facility] [place] [address] Apr, [facility] [place] [facility] [address] [id number] [place] [address] Apr, [facility] [place] [facility] [address] [id number] [place] [address] Apr, [facility] [place] [facility] [address] [id number] [facility] [place] [address] Apr, [facility] [place] [facility] [address] [id number] [place] [address] Apr, [facility] [place] [facility] [address] [id number] [place] [address] Apr, [facility] [place] [facility] [address] [id number] [place] [address] Apr, [facility] [place] [facility] [address] [id number] [place] [address] Apr, [facility] [place] [facility] [address] [id number] [place] [address] Apr, [facility] [place] [facility] [address] [id number] [place] [address] Apr, [facility] [place] [facility] [address] [id number] [place] [address] Apr, [facility] [place] [facility] [address] [id number] [place] [address] Apr, [facility] [place] [facility] [address] [id number] [place] [address] Apr, [facility] [place] [facility] [address] [id number] [place] [address] Apr, [facility] [place] [facility] [address] [id number] [place] [address] Apr, [facility] [place] [facility] [address] [id number] [place] [address] Mar, [facility] [place] [facility] [address] [id number] [place] [address] Mar, [facility] [place] [facility] [address] [id number] [place] [address] Mar, [facility] [place] [facility] [address] [id number] [place] [address] Mar, [facility] [place] [facility] [address] [id number] [place] [address] Feb, [facility] [place] [facility] [address] [id number] [place] [address] Feb, [facility] [place] [facility] [address] [id number] [place] [address] Feb, [facility] [place] [facility] [address] [id number] [place] [address] Feb, [facility] [place] [facility] [address] [id number] [place] [address] Jan, [facility] [place] [facility] [address] [id number] [place] [address] Jan, [facility] [place] [facility] [address] [id number] [place] [address] Jan, [facility] [place] [facility] [address] [id number] [place] [address] Jan, [facility] [place] [facility] [address] [id number] [place] [address] Jan, [facility] [place] [facility] [address] [id number] [place] [address] Jan, [facility] [place] [facility] [address] [facility] [facility] 2001 [id number] [place] [address] Jan, [facility] [place] [facility] [address] [facility] [facility] 2001 [id number] [place] [address] Jan, 2013 [facility] [place] [facility] [address] [facility] 2001 [id number] [place] [address] Dec, 2013 [facility] [place] [facility] [address] [id number] [place] [address] Dec, 2013 [facility] [place] [facility] [address] [facility] 2001 [id number] [place] [address] Dec, 2013 [facility] [place] [facility] [address] [id number] [place] [address] Dec, 2013 [facility] [place] [facility] [address] [id number] [place] [address] Oct, 2013 [facility] [place] [facility] [address] [id number] [place] [address] Oct, 2013 [facility] [place] [facility] [address] [id number] [place] [address] Oct, 2013 [facility] [place] [facility] [address] [id number] [place] [address] Oct, 2013 [facility] [place] [facility] [address] [id number] [place] [address] Oct, 2013 [facility] [place] [facility] [address] [id number] [place] [address] Oct, 2013 [facility] [place] [facility] [address] [id number] [place] [address] Oct, 2013 [facility] [place] [facility] [address] [id number] [place] [address] Oct, 2013 [facility] [place] [facility] [address] [id number] [place] [address] Sep, [facility] [place] [facility] [address] [id number] [place] [address] Sep, [facility] [place] [facility] [address] [id number] [place] [address] Sep, [facility] [place] [facility] [address] 2001 [id number] [facility] [place] [address] Sep, [facility] [place] [facility] [address] [facility] 2001 [id number] [facility] [place] [address] Sep, [facility] [place] [facility] [address] [id number] [facility] [place] [address] Sep, [facility] [place] [facility] [address] [id number] [facility] [place] [address] Sep, [facility] [place] [facility] [address] [facility] 2001 [id number] [facility] [place] [address] Sep, [facility] [place] [facility] [address] [id number] [place] [address] Sep, [facility] [place] [facility] [address] [id number] [place] [address] Sep, [facility] [place] [facility] [address] [id number] [place] [address] August, [facility] [place] [facility] [address] [id number] [place] [address] August, [facility] [place] [facility] [address] [id number] [place] [address] August, [facility] [place] [facility] [address] [id number] [place] [address] August, [facility] [place] [facility] [address] [id number] [place] [address] August, [facility] [place] [facility] [address] [id number] [place] [address] August, [facility] [place] [facility] [address] [id number] [place] [address] August, [facility] [place] [facility] [address] [id number] [place] [address] August, [facility] [place] [facility] [address] [id number] [place] [address] August, [facility] [place] [facility] [address] [id number] [facility] [place] [address] August, [facility] [place] [facility] [address] [facility] [facility] 2001 [id number] [place] [address] August, [facility] [place] [facility] [address] [facility] [facility] 2001 [id number] [place] [address] August, [facility] [place] [facility] [address] [id number] [place] [address] Jul, [facility] [place] [facility] [address] [id number] [place] [address] Jul, [facility] [place] [facility] [address] [facility] 2001 [id number] [place] [address] Jul, [facility] [place] [facility] [address] [id number] [place] [address] Jul, [facility] [place] [facility] [address] [id number] [place] [address] Jul, [facility] [place] [facility] [address] [id number] [place] [address] Jul, [facility] [place] [facility] [address] [id number] [place] [address] Jun, [facility] [place] [facility] [address] [id number] [place] [address] Jun, [facility] [place] [facility] [address] [id number] [place] [address] May, [facility] [place] [facility] [address] [id number] [place] [address] May, [facility] [place] [facility] [address] [facility] 2001 [id number] [place] [address] Apr, [facility] [place] [facility] [address] [id number] [place] [address] Apr, [facility] [place] [facility] [address] [id number] [place] [address] Apr, [facility] [place] [facility] [address] [id number] [place] [address] Apr, [facility] [address] [id number] [place] [address] Apr, [facility] [place] [facility] [address] [id number] [place] [address] Apr, [facility] [place] [facility] [address] [id number] [place] [address] Apr, [facility] [place] [facility] [address] [id number] [place] [address] Apr, [facility] [place] [facility] [address] [id number] [place] [address] Apr, [facility] [place] [facility] [address] [id number] [place] [address] Apr, [facility] [place] [facility] [address] [id number] [place] [address] Apr, [facility] [place] [facility] [id number] [place] [address] Apr, [facility] [place] [facility] [address] [id number] [place] [address] Apr, [facility] [place] [facility] [address] [id number] [place] [address] Mar, [facility] [place] [facility] [address] [id number] [place] [address] Mar, [facility] [place] [facility] [address] [id number] [place] [address] Mar, [facility] [place] [facility] [address] [id number] [place] [address] Mar, [facility] [place] [facility] [address] [id number] [place] [address] Feb, [facility] [place] [facility] [address] [id number] [place] [address] Feb, [facility] [place] [facility] [address] [id number] [place] [address] Feb, [facility] [place] [facility] [address] [id number] [place] [address] 08 Feb, 2013 [facility] [place] [facility] [address] 2001 [id number] [place] [address] 14 Jan, 2013 [facility] [place] [facility] [address] [facility] 2001 [id number] [place] [address] 14 Jan, 2013 [facility] [place] [facility] [address] [id number] [place] [address] Jan, [facility] [place] [facility] [address] [facility] 2001 [id number] [place] [address] 11 Jan, 2013 [facility] [place] [facility] [address] [facility] 2001 [id number] [facility] [place] [address] Jan, [facility] [place] [facility] [address] [id number] [place] [address] 10 Jan, 2013 [facility] [place] [facility] [address] [id number] [place] [address] Jan, [facility] [place] [facility] [address] [id number] [place] [address] 09 Jan, 2013 [facility] [place] [facility] [address] [facility] 2001 [id number] [place] [address] Jan, [facility] [place] [facility] [address] [id number] [place] [address] 26 Dec, 2012 [facility] [place] [facility] [address] [id number] [place] [address] 16 Dec, 2012 [facility] [place] [facility] [address] [id number] [place] [address] 16 Dec, 2012 [facility] [place] [facility] [address] [facility] 2001 [id number] [place] [address] 13 Dec, 2012 [facility] [place] [facility] [address] [id number] [place] [address] 17 Nov, 2012 [facility] [place] [facility] [address] [facility] 2001 [id number] [place] [address] 17 Nov, 2012 [facility] [place] [facility] [address] [id number] [place] [address] 14 Nov, 2012 [facility] [place] [facility] [address] [facility] 2001 [id number] [place] [address] Nov, [facility] [facility] [address] [id number] [place] [address] Oct, [facility] [place] [facility] [address] [id number] [place] [address] Sep, [facility] [place] [facility] [address] [id number] [place] [address] August, [facility] [place] [facility] [address] [id number] [place] [address] August, [facility] [place] [facility] [address] [id number] [place] [address] August, [facility] [place] [facility] [address] [id number] [place] [address] August, [facility] [place] [facility] [address] [id number] [place] [address] August, [facility] [place] [facility] [address] [id number] [place] [address] August, [facility] [place] [facility] [address] [id number] [place] [address] August, [facility] [place] [facility] [address] [id number] [place] [address] August, [facility] [place] [facility] [address] [id number] [place] [address] August, [facility] [place] [facility] [address] [id number] [place] [address] August, [facility] [place] [facility] [address] [id number] [place] [address] August, [facility] [place] [facility] [address] [id number] [place] [address] August, [facility] [place] [facility] [address] [id number] [place] [address] Jul, [facility] [place] [facility] [address] [id number] [place] [address] Jul, [facility] [facility] [address] [id number] [place] [address] 18 Jul, 2012 [facility] [place] [facility] [address] [id number] [place] [address] 15 Jul, 2012 [facility] [place] [facility] [address] [id number] [place] [address] Jul, [facility] [place] [facility] [address] [id number] [place] [address] Jul, [facility] [place] [facility] [address] [id number] [place] [address] Jul, [facility] [facility] [address] [id number] [place] [address] Jul, [facility] [place] [facility] [address] [id number] [place] [address] Jul, [facility] [place] [facility] [address] [id number] [place] [address] Jul, [facility] [place] [facility] [address] [id number] [place] [address] Jul, [facility] [place] [facility] [address] [id number] [place] [address] Jun, [facility] [place] [facility] [address] [id number] [place] [address] Jun, [facility] [place] [facility] [address] [id number] [place] [address] Jun, [facility] [place] [facility] [address] [id number] [place] [address] Jun, [facility] [place] [facility] [address] [id number] [place] [address] May, [facility] [place] [facility] [address] [id number] [place] [address] 14 May, 2012 [facility] [place] [facility] [address] [id number] [place] [address] 05 May, 2012 [facility] [place] [facility] [address] [id number] [place] [address] May, [facility] [place] [facility] [address] [id number] [place] [address] May, [facility] [place] [facility] [address] [id number] [place] [address] May, [facility] [place] [facility] [address] [id number] [place] [address] Apr, [facility] [place] [facility] [address] [id number] [place] [address] Apr, [facility] [place] [facility] [address] [id number] [place] [address] Apr, [facility] [place] [facility] [address] [id number] [place] [address] Apr, [facility] [place] [facility] [address] [id number] [place] [address] 15 Mar, 2012 [facility] [place] [facility] [address] [id number] [place] [address] 14 Mar, 2012 [facility] [place] [facility] [address] [id number] [place] [address] Mar, [facility] [place] [facility] [address] [id number] [place] [address] 14 Mar, 2012 [facility] [place] [facility] [address] [id number] [place] [address] Mar, [facility] [place] [facility] [address] [id number] [place] [address] Mar, [facility] [place] [facility] [address] [id number] [place] [address] Mar, [facility] [place] [facility] [id number] [place] [address] Feb, [facility] [place] [facility] [address] [id number] [place] [address] Feb, [facility] [place] [facility] [address] [id number] [place] [address] Feb, [facility] [place] [facility] [address] [id number] [place] [address] Feb, [facility] [place] [facility] [address] [id number] [place] [address] Jan, [facility] [place] [facility] [address] [id number] [place] [address] Jan, [facility] [place] [facility] [address] [id number] [place] [address] Jan, [facility] [place] [facility] [address] [id number] [place] [address] Jan, [facility] [place] [facility] [address] [id number] [place] [address] Jan, [facility] [place] [facility] [address] [id number] [place] [address] Jan, [facility] [place] [facility] [address] [id number] [place] [address] Dec, [facility] [place] [facility] [address] [id number] [place] [address] Dec, [facility] [place] [facility] [address] [id number] [place] [address] Nov, [facility] [place] [facility] [address] [id number] [place] [address] Sep, [facility] [place] [facility] [address] [id number] [place] [address] August, [facility] [place] [facility] [address] [id number] [place] [address] August, [facility] [place] [facility] [address] [id number] [place] [address] August, [facility] [place] [facility] [address] [facility] [id number] [place] [address] August, [facility] [place] [facility] [address] [id number] [place] [address] August, [facility] [place] [facility] [address] [id number] [place] [address] Jun, [facility] [place] [facility] [address] [id number] [place] [address] Jun, [facility] [place] [facility] [address] [id number] [place] [address] Apr, [facility] [place] [facility] [address] [id number] [place] [address] Apr, [facility] [place] [facility] [address] [facility] [id number] [place] [address] Mar, [facility] [place] [facility] [address] [facility] [address] [id number] [place] [address] Feb, [facility] [place] [facility] [address] [facility] [id number] [place] [address] Feb, [facility] [place] [facility] [address] [facility] [address] [id number] [place] [address] Feb, [facility] [place] [facility] [address] [facility] [address] [id number] [place] [address] Jan, [facility] [place] [facility] [address] [facility] [id number] [place] [address] Jan, [facility] [place] [facility] [address] [facility] [address] [id number] [place] [address] Jan, [facility] [place] [facility] [id number] [place] [address] Jan, [facility] [place] [facility] [address] [facility] [id number] [place] [address] 15 May, 2010 [facility] [place] [facility] [address] [facility] [address] [id number] [place] [address] Mar, [facility] [place] [id number] [place] [address] Oct, [facility] [id number] [place] [address] Sep, [facility] [id number] [place] [address] Mar, [facility] [id number] [place] [address] Jan, [facility] [id number] [place] [address] Jan, [facility] [id number] [place] [address] May, IMMUNIZATIONS No Known Immunizations SOCIAL HISTORY Never Assessed REASON FOR VISIT PLAN OF CARE VITAL SIGNS Height 62 in 2013-10-02 Weight 180.3 lbs 2013-10-02 Temperature 98.6 degrees Fahrenheit 2013-10-02 Heart Rate 78 bpm 2013-10-02 Respiratory Rate 18 2013-10-02 Blood pressure systolic 128 mmHg 2013-10-02 Blood pressure diastolic 76 mmHg 2013-10-02 MEDICATIONS Unknown Medications RESULTS No Results PROCEDURES Procedure Date Ordered Result Body Site TRICHOMONAS VAGIN, DIR PROBE October 02, 2013 CHYLMD TRACH, DNA, AMP PROBE October 02, 2013 CULTURE, BACTERIA, OTHER October 02, 2013 INSTRUCTIONS MEDICATIONS ADMINISTERED No Known Medications [...]
--- OUTSIDE RECORDS SUMMARY | 2019-11-23 05:49 | XMS REPORT ---
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 Active 110595271762 Problem Neck pain M54.2 Active 89003248 Problem Chronic pain due to trauma G89.21 Act juanis [id number] Problem Hematuria, unspecified type R31.9 Ac tive 06772799 Problem Seasonal allergies J30.2 Active 4 57175844 Problem Abnormal glucose R73.09 Active 102 946294 Problem Anxiety F41.9 Active 59418014 Problem Essential hypertension I10 Active 79162555 Problem Mixed hyperlipidemia E78.2 Active 36144424 Problem Hypokalemia E87.6 Active [id number] ALLERGIES No Information ENCOUNTERS Encounter Location Date Diagnosis [place] [address] [address] Mar, Neuroforaminal stenosis of spine M99.89 [place] [address] [address] Mar, Epicondylitis, lateral, left M77.12 [place] [address] [address] Mar, [place] [address] [address] Mar, Neuroforaminal stenosis of spine M99.89 [place] [address] [address] Feb, Neuroforaminal stenosis of spine M99.89 ; Essential hypertension I10 ; Mixed hyperlipidemia E78.2 ; Encounter for immunization Z23 and Seasonal allergies J30.2 [place] [address] [address] Jan, Neuroforaminal stenosis of spine M99.89 [facility] [place] [address] [address] Dec, Neuroforaminal stenosis of spine M99.89 [facility] [place] [address] [address] Dec, Neuroforaminal stenosis of spine M99.89 [facility] [place] [address] [address] Nov, [place] [address] [address] Nov, Neuroforaminal stenosis of spine M99.89 [place] [address] [address] Nov, Acute non-recurrent maxillary sinusitis J01.00 [place] [address] [address] Oct, Hypokalemia E87.6 [facility] [address] [facility] [place] [id number] [address] [place] [address] Oct, Wasp sting, undetermined int ent, initial encounter T63.464A and Cellulitis of left lower extremity L03.116 [place] [address] [address] Oct, Neuroforaminal stenosis of spine M99.89 [facility] [place] [address] [address] Sep, [place] [address] [address] Sep, [place] [address] [address] Sep, Routine screening for STI (sexually veronica smitted infection) Z11.3 [place] [address] [address] Sep, Routine screening for STI (sexually veronica smitted infection) Z11.3 ; Well woman exam with routine gynecological exam Z01.419 and Breast cancer screening Z12.39 [place] [address] [address] 10 Sep, 2018 Neuroforaminal stenosis of spine M99.89 [place] [address] [address] August, Neuroforaminal stenosis of spine M99.89 [place] [address] [address] August, Neuroforaminal stenosis of spine M99.89 ; Chronic pain due to trauma G89.21 and Mixed hyperlipidemia E78.2 [place] [address] [address] 16 Jul, 2018 Viral upper respiratory illness J06.9 an d Acute non-recurrent frontal sinusitis J01.10 [place] [address] [address] Jul, Congestion of nasal sinus R09.81 [place] [address] [address] Jul, Neuroforaminal stenosis of spine M99.89 and Essential hypertension I10 [place] [address] [address] May, Neuroforaminal stenosis of spine M99.89 [place] [address] [address] May, [place] [address] [address] May, Congestion of nasal sinus R09.81 [place] [address] [address] May, [place] [address] [address] Apr, Neuroforaminal stenosis of spine M99.89 [facility] [place] [address] [address] Apr, Neuroforaminal stenosis of spine M99.89 and Chronic pain due to trauma G89.21 [facility] [place] [address] [address] Mar, UTI (urinary tract infection) N39.0 [facility] [place] [address] [address] Mar, Vertigo R42 [place] [address] [address] Mar, Neuroforaminal stenosis of spine M99.89 [place] [address] [address] Feb, Extensor tendon disruption M67.89 [place] [address] [address] Feb, Neuroforaminal stenosis of spine M99.89 and High risk medication use Z79.899 [place] [address] [address] Jan, Hypokalemia E87.6 [place] [address] [address] Jan, Flank pain R10.9 and Acute right-sided l ow back pain without sciatica M54.5 [place] [address] [address] Jan, Hypokalemia E87.6 [place] [address] [address] Jan, [facility] [place] [address] [address] Jan, URI, acute J06.9 [facility] [place] [address] [address] Jan, Neuroforaminal stenosis of spine M99.89 [place] [address] [address] 13 Dec, 2017 Lateral epicondylitis, right elbow M77.1 1 [place] [address] [address] 11 Dec, 2017 Allergic rhinitis due to pollen, unspeci fied seasonality J30.1 and Allergic conjunctivitis of both eyes H10.13 [place] [address] [address] 10 Dec, 2017 Neuroforaminal stenosis of spine M99.89 [place] [address] [address] 06 Dec, 2017 Mixed hyperlipidemia E78.2 [place] [address] [address] 05 Dec, 2017 Abnormal glucose R73.09 ; Abnormal renal ultrasound R93.429 ; Dysuria R30.0 ; Cystitis without hematuria N30.90 ; Hypokalemia E87.6 ; Mixed hyperlipidemia E78.2 and Hematuria, unspecified type R31.9 [place] [address] [address] Nov, Hypokalemia E87.6 ; Mixed hyperlipidemia E78.2 and Hematuria, unspecified type R31.9 [place] [address] [address] Nov, [place] [address] [address] Nov, Hypokalemia E87.6 [place] [address] [address] Nov, [place] [address] [address] Nov, Abnormal renal ultrasound R93.429 [place] [address] [address] 16 Nov, 2017 Abnormal renal ultrasound R93.429 [place] [address] [address] Nov, Hematuria, unspecified type R31.9 and Ne uroforaminal stenosis of spine M99.89 [place] [address] [address] Nov, Dysuria R30.0 [place] [address] [address] Oct, Lateral epicondylitis, right elbow M77.1 1 [place] [address] [address] Oct, Neuroforaminal stenosis of spine M99.89 ; Visit for TB skin test Z11.1 and Essential hypertension I10 [place] [address] [address] Oct, [place] [address] [address] Oct, Neuroforaminal stenosis of spine M99.89 [place] [address] [address] Oct, Visit for TB skin test Z11.1 [place] [address] [address] Oct, Cystitis without hematuria N30.90 [place] [address] [address] Sep, Screening breast examination Z12.39 [place] [address] [address] Sep, Dysuria R30.0 and Cystitis without hemat uria N30.90 [place] [address] [address] Sep, Essential hypertension I10 and Neurofora ingrid stenosis of spine M99.89 [place] [address] [address] Sep, Abnormal glucose R73.09 [place] [address] [address] August, Lateral epicondylitis, right elbow M77.1 1 [place] [address] [address] August, Screen for STD (sexually transmitted dis ease) Z11.3 [place] [address] [address] August, Neuroforaminal stenosis of spine M99.89 ; Mixed hyperlipidemia E78.2 ; Elevated fasting glucose R73.01 ; Screening mammogram, encounter for Z12.31 and Encounter for well woman exam without gynecological exam Z00.00 [place] [address] [address] August, Neuroforaminal stenosis of spine M99.89 [place] [address] [address] August, Essential hypertension I10 ; Hypokalemia E87.6 and Mixed hyperlipidemia E78.2 [place] [address] [address] Jul, [place] [address] [address] Jul, Neuroforaminal stenosis of spine M99.89 [place] [address] [address] Jul, Lateral epicondylitis, right elbow M77.1 1 [place] [address] [address] Jul, [place] [address] [address] Jun, High ankle sprain of right lower extremi ty, initial encounter S93.431A [place] [address] [address] Jun, Essential hypertension I10 [place] [address] [address] Jun, [place] [address] [address] Jun, [place] [address] [address] Jun, Neuroforaminal stenosis of spine M99.89 [place] [address] [address] Jun, Pain of right upper extremity M79.601 an d Essential hypertension I10 [place] [address] [address] Jun, [place] [address] [address] Jun, Dysuria R30.0 ; Acute cystitis with keturah turia N30.01 and Screen for STD (sexually transmitted disease) Z11.3 [place] [address] [address] May, Chronic pain due to trauma G89.21 [place] [address] [address] May, Essential hypertension I10 [place] [address] [address] May, Neuroforaminal stenosis of spine M99.89 [place] [address] [address] Apr, Allergic reaction, initial encounter T78 .40XA [place] [address] [address] Apr, Low back pain, unspecified back pain lat erality, unspecified chronicity, with sciatica presence unspecified M54.5 ; Acute cystitis with hematuria N30.01 ; Neuroforaminal stenosis of spine M99.89 ; Bilateral acute serous otitis media, recurrence not specified H65.03 ; Mixed hyperlipidemia E78.2 ; Essential hypertension I10 ; Immunization counseling Z71.89 and Encounter for immunization Z23 [place] [address] [address] Apr, Neck pain M54.2 [facility] [place] [address] [address] Mar, Neuroforaminal stenosis of spine M99.89 [facility] [place] [address] [address] Mar, Pharyngitis due to other organism J02.8 [facility] [place] [address] [address] Feb, Neuroforaminal stenosis of spine M99.89 [facility] [place] [address] [address] Feb, UTI (urinary tract infection) N39.0 [place] [address] [address] Feb, Recent urinary tract infection Z87.440 ; Neuroforaminal stenosis of spine M99.89 ; Neck pain M54.2 ; Chronic pain due to trauma G89.21 and Recurrent UTI N39.0 [facility] [place] [address] [address] Feb, [facility] [place] [address] [address] Jan, Neuroforaminal stenosis of spine M99.89 [place] [address] [address] Dec, Neuroforaminal stenosis of spine M99.89 [place] [address] [address] 18 Dec, 2016 Acute seasonal allergic rhinitis due to pollen J30.1 [facility] [place] [address] [address] 08 Dec, 2016 [place] [address] [address] 08 Dec, 2016 Acute seasonal allergic rhinitis, unspec ified trigger J30.2 ; Allergic conjunctivitis of both eyes H10.13 and Dysfunction of both eustachian tubes H69.83 [place] [id number] [address] 07 Dec, 2016 [facility] [place] [address] [address] Dec, Nevus D22.9 [facility] [place] [address] [address] Nov, Chronic pain due to trauma G89.21 and Ne uroforaminal stenosis of spine M99.89 [facility] [place] [address] [address] Nov, Neuroforaminal stenosis of spine M99.89 ; Essential hypertension I10 ; Mixed hyperlipidemia E78.2 ; Hypokalemia E87.6 ; Neck pain M54.2 and Nevus D22.9 [place] [address] [address] Oct, Neuroforaminal stenosis of spine M99.89 [place] [address] [address] Sep, Neuroforaminal stenosis of spine M99.89 [facility] [place] [address] [address] Sep, [facility] [place] [address] [address] August, [facility] [place] [address] [address] August, Neck pain M54.2 and Neuroforaminal steno sis of spine M99.89 [facility] [place] [address] [address] August, Routine gynecological examination Z01.41 9 and Screening breast examination Z12.39 [facility] [place] [address] [address] Jul, [facility] [place] [address] [address] Jul, [facility] [place] [address] [place] [address] [place] [address] Jul, Neuroforaminal stenosis of spine M99.89 [facility] [place] [address] [address] Jul, [facility] [place] [address] [address] Jul, 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 [facility] [place] [address] [address] Jul, [facility] [place] [address] [address] Jul, [facility] [place] [address] [address] Jun, Neuroforaminal stenosis of spine M99.89 [place] [address] [address] Jun, Uterine leiomyoma, unspecified location D25.9 and Allergic reaction caused by a drug, initial encounter T78.40XA [facility] [place] [address] [address] Jun, [place] [address] [address] May, UTI symptoms R39.9 and Pain of right sac roiliac joint M53.3 [place] [address] [address] May, Neuroforaminal stenosis of spine M99.89 [facility] [place] [address] [address] May, [facility] [place] [address] [address] May, Acute mucoid otitis media of left ear H6 5.112 and Acute non-recurrent maxillary sinusitis J01.00 [place] [address] [address] May, Acute bacterial conjunctivitis of both e yes H10.33 ; Left arm pain M79.602 and Hypokalemia E87.6 [place] [address] [address] Apr, [place] [address] [address] Apr, Neuroforaminal stenosis of spine M99.89 ; Neck pain M54.2 ; Chronic pain due to trauma G89.21 ; Mixed hyperlipidemia E78.2 ; Essential hypertension I10 and Hypokalemia E87.6 [place] [address] [address] Mar, Oral candidiasis B37.0 ; Neuroforaminal stenosis of spine M99.89 ; Neck pain M54.2 and Chronic pain due to trauma G89.21 [place] [address] [address] Feb, [place] [address] [address] Feb, [place] [address] [address] Feb, UTI (urinary tract infection) N39.0 [place] [address] [address] 09 Feb, 2016 Dysuria R30.0 [place] [address] [address] 08 Feb, 2016 Dysuria R30.0 [place] [address] [address] 02 Feb, 2016 Neuroforaminal stenosis of spine M99.89 ; Neck pain M54.2 ; Essential hypertension I10 ; Chronic pain due to trauma G89.21 ; Dysuria R30.0 ; Abnormal MRI, shoulder R93.8 and Acute cystitis without hematuria N30.00 [place] [address] [address] Jan, [place] [address] [place] [id number] [place] [address] Jan, [facility] [place] [address] [address] Jan, [facility] [place] [address] [place] [id number] [place] [address] Jan, Abnormal MRI R93.8 [facility] [place] [address] [address] 29 Dec, 2015 [facility] [address] [facility] [place] [id number] [address] [place] [address] 15 Dec, 2015 Acute pain of left shoulder M25.512 [facility] [place] [address] [address] 09 Dec, 2015 [facility] [place] [address] [address] 08 Dec, 2015 [facility] [place] [address] [address] 07 Dec, 2015 Acute pain of left shoulder M25.512 [facility] [place] [address] [address] Nov, [facility] [place] [address] [address] 16 Nov, 2015 Neuroforaminal stenosis of spine M99.89 ; Neck pain M54.2 ; Abnormal mammogram R92.8 ; Essential hypertension I10 and Chronic pain due to trauma G89.21 [facility] [place] [address] [place] [id number] [place] [address] Nov, [facility] [place] [address] [address] Oct, Acute stress disorder F43.0 [facility] [place] [address] [address] Oct, [facility] [place] [address] [address] Oct, [facility] [place] [address] [place] [address] Oct, [facility] [place] [address] [address] Sep, [facility] [place] [address] [address] August, [facility] [place] [address] [address] Jul, Neuroforaminal stenosis of spine M99.89 ; Neck pain M54.2 ; Abnormal mammogram R92.8 and Essential hypertension I10 [facility] [place] [address] [address] Jul, [facility] [place] [address] [address] Jul, [facility] [place] [address] [address] Jul, Abnormal mammogram R92.8 [facility] [place] [address] [address] Jul, [facility] [place] [address] [address] Jul, UTI (urinary tract infection) N39.0 [facility] [place] [address] [address] Jul, Dysuria R30.0 [facility] [place] [address] [address] Jun, [facility] [place] [address] [address] Jun, [facility] [place] [address] [address] Jun, Hypokalemia E87.6 and Hematuria R31.9 [facility] [place] [address] [address] Jun, Hypokalemia E87.6 [facility] [place] [address] [address] Jun, [place] [address] [address] Jun, Hypokalemia E87.6 [place] [address] [address] Jun, Hypokalemia E87.6 [place] [address] [address] Jun, Neuroforaminal stenosis of spine M99.89 ; Hypokalemia E87.6 ; Neck pain M54.2 ; Essential hypertension I10 ; Mixed hyperlipidemia E78.2 and Screening breast examination Z12.[address] [address] 08 Jun, 2015 Dysuria R30.0 ; UTI (urinary tract infec tion) N39.0 and Hematuria R31.[address] [address] May, [address] [address] May, High risk sexual behavior Z72.51 ; Hypok alemia E87.6 ; Neuroforaminal stenosis of spine M99.89 ; Neck pain M54.2 ; Essential hypertension I10 ; Mixed hyperlipidemia E78.2 ; STD exposure Z20.2 and Concern about STD in female without diagnosis Z71.[address] [address] 16 May, 2015 Neuroforaminal stenosis of spine M99.89 ; Neck pain M54.2 ; Hypokalemia E87.6 ; Essential hypertension I10 and Mixed hyperlipidemia E78.[address] [address] May, [facility] N [facility] [id number] [address] [place] [address] 08 May, 2015 High risk sexual behavior Z7 2.51 ; STD exposure Z20.2 and Concern about STD in female without diagnosis Z71.1 [place] [address] [address] May, [place] [address] [address] Apr, Neuroforaminal stenosis of spine M99.89 ; Mixed hyperlipidemia E78.2 ; Essential hypertension I10 and Hypokalemia E87.6 [place] [address] [address] Mar, [place] [address] [address] Mar, Hypokalemia E87.6 [place] [address] [address] Mar, Neuroforaminal stenosis of spine M99.89 ; Mixed hyperlipidemia E78.2 ; Neck pain M54.2 ; Essential hypertension I10 ; Abnormal fasting glucose R73.09 ; Hypokalemia E87.6 and Constipation K59.00 [place] [address] [address] Feb, Neuroforaminal stenosis of spine M99.89 ; Mixed hyperlipidemia E78.2 ; Neck pain M54.2 ; Essential hypertension I10 ; Abnormal fasting glucose R73.09 ; Hypokalemia E87.6 and Constipation K59.00 [place] [address] [address] Feb, Elevated fasting blood sugar R73.01 [place] [address] [address] Feb, Elevated fasting blood sugar R73.01 [place] [address] [address] Feb, Hair loss L65.9 [place] [address] [address] Feb, Sinusitis J32.9 ; Essential hypertension I10 and Hair loss L65.9 [place] [address] [address] Jan, [place] [address] [address] Jan, Essential hypertension I10 ; Neuroforami nal stenosis of spine M99.89 ; Neck pain M54.2 ; Mixed hyperlipidemia E78.2 and Anxiety F41.9 [place] [address] [address] Jan, [place] [address] [address] Jan, Mixed hyperlipidemia E78.2 ; Essential ( primary) hypertension I10 ; Strain of muscle, fascia and tendon at neck level, subsequent encounter S16.1XXD and Tension-type headache, unspecified, not intractable G44.209 [place] [address] [address] Dec, Lumbar back pain 724.2 and Neuroforamina l stenosis of spine 724.00 [place] [address] [address] Nov, [place] [address] [address] Nov, Lumbar back pain 724.2 and Neuroforamina l stenosis of spine 724.00 [place] [address] [address] Nov, Edema 782.3 ; Lumbar back pain 724.2 ; E ssential hypertension, benign 401.1 ; Hyperlipemia 272.4 ; Neuroforaminal stenosis of spine 724.00 and Post- concussion headache 339.20 [place] [address] [address] Nov, [place] [address] [address] Nov, [place] [address] [address] Oct, Essential hypertension, benign 401.1 [place] [address] [address] Oct, Edema 782.3 ; Lumbar back pain 724.2 ; E ssential hypertension, benign 401.1 ; Hyperlipemia 272.4 ; Neuroforaminal stenosis of spine 724.00 and Post- concussion headache 339.20 [place] [address] [address] Oct, [place] [address] [address] Oct, Edema 782.3 [place] [address] [address] Oct, Lumbar back pain 724.2 [place] [address] [address] Oct, Cervicalgia 723.1 ; Lumbar back pain 724 .2 and High risk medication use V58.69 [place] [address] [address] Sep, [place] [address] [address] Sep, Lumbar strain 847.2 [place] [address] [address] August, Edema 782.3 and Eustachian tube dysfunct ion 381.81 [place] [address] [address] August, [place] [address] [address] August, Eustachian tube dysfunction 381.81 [place] [address] [address] Jul, Otalgia 388.70 and Otitis media 382.9 [place] [address] [address] 28 Jul, 2014 [facility] [address] [facility] [id number] [facility] [place] [address] 28 Jul, 2014 [facility] [address] [facility] [id number] [facility] [place] [address] 28 Jul, 2014 [facility] [id number] [facility] [place] [address] 14 Jul, 2014 [facility] [id number] [facility] [place] [address] 13 Jul, 2014 [facility] [address] [facility] [id number] [facility] [place] [address] 27 Jun, 2014 [facility] [id number] [facility] [place] [address] 27 Jun, 2014 [facility] [id number] [place] [address] 16 Jun, 2014 [facility] [id number] [place] [address] May, 2014 [facility] [id number] [place] [address] May, 2014 [facility] [id number] [place] [address] 23 May, 2014 [facility] [id number] [place] [address] May, 2014 [facility] [id number] [place] [address] 17 May, 2014 [facility] [id number] [place] [address] 11 May, 2014 [facility] [id number] [place] [address] 09 May, 2014 [facility] [id number] [place] [address] 05 May, 2014 [facility] [id number] [place] [address] 05 May, 2014 [facility] [id number] [place] [address] May, [facility] [id number] [place] [address] Apr, [facility] [id number] [place] [address] Apr, [facility] [id number] [place] [address] Apr, [facility] [id number] [place] [address] Apr, [facility] [id number] [place] [address] Apr, [facility] [id number] [place] [address] Apr, [facility] [id number] [place] [address] Apr, [facility] [id number] [place] [address] Apr, [facility] [id number] [place] [address] Apr, [facility] [id number] [place] [address] Apr, [facility] [id number] [place] [address] Apr, [facility] [id number] [place] [address] Apr, [facility] [id number] [place] [address] Apr, [facility] [id number] [place] [address] Apr, [facility] [id number] [place] [address] Apr, [facility] [id number] [place] [address] Mar, [facility] [id number] [place] [address] Mar, [facility] [id number] [place] [address] Mar, [facility] [id number] [place] [address] Mar, [facility] [id number] [place] [address] Feb, [facility] [id number] [place] [address] Feb, [facility] [id number] [place] [address] Feb, [facility] [id number] [place] [address] Feb, [facility] [id number] [place] [address] Jan, [facility] [id number] [place] [address] Jan, [facility] [id number] [place] [address] Jan, [facility] [id number] [place] [address] Jan, [facility] [id number] [place] [address] Jan, [facility] [id number] [place] [address] Jan, [facility] [id number] [place] [address] Jan, [facility] [id number] [place] [address] Jan, [facility] [id number] [place] [address] Dec, [facility] [id number] [place] [address] 29 Dec, 2013 [facility] [address] [id number] [facility] [place] [address] 04 Dec, 2013 [facility] [address] [facility] [id number] [place] [address] 04 Dec, 2013 [facility] [id number] [place] [address] Oct, 2013 [facility] [address] [facility] [id number] [place] [address] Oct, 2013 [facility] [address] [facility] [id number] [place] [address] Oct, [facility] [id number] [place] [address] Oct, 2013 [facility] [id number] [place] [address] Oct, 2013 [facility] [id number] [place] [address] Oct, 2013 [facility] [id number] [place] [address] Oct, [facility] [id number] [place] [address] Oct, 2013 [facility] [id number] [place] [address] Sep, [facility] [id number] [place] [address] Sep, [facility] [address] [id number] [place] [address] Sep, [facility] [id number] [place] [address] Sep, [facility] [id number] [place] [address] Sep, [facility] [id number] [place] [address] Sep, [facility] [address] [id number] [place] [address] Sep, [facility] [id number] [place] [address] Sep, [facility] [id number] [place] [address] Sep, [facility] [id number] [place] [address] Sep, [facility] [id number] [place] [address] August, [facility] [id number] [place] [address] August, [facility] [id number] [place] [address] August, [facility] [id number] [place] [address] August, [facility] [id number] [place] [address] August, [facility] [id number] [place] [address] August, [facility] [id number] [place] [address] August, [facility] [id number] [place] [address] August, [facility] [id number] [place] [address] August, [facility] [id number] [place] [address] August, [facility] [id number] [place] [address] August, [facility] [id number] [place] [address] August, [facility] [id number] [place] [address] Jul, [facility] [address] [facility] [id number] [facility] [place] [address] Jul, [facility] [address] [facility] [id number] [facility] [place] [address] Jul, [facility] [address] [facility] [id number] [place] [address] Jul, [facility] [address] [facility] [id number] [facility] [place] [address] Jul, [facility] [address] [facility] [id number] [facility] [place] [address] Jul, [facility] [address] [facility] [id number] [place] [address] Jun, [facility] [id number] [place] [address] Jun, [facility] [id number] [place] [address] May, [facility] [address] [facility] [id number] [place] [address] May, [facility] [id number] [place] [address] Apr, [facility] [id number] [place] [address] Apr, [facility] [id number] [place] [address] Apr, [facility] [address] [facility] [id number] [place] [address] Apr, [facility] [address] [facility] [id number] [place] [address] Apr, [facility] [address] [facility] [id number] [place] [address] Apr, [facility] [id number] [place] [address] Apr, [facility] [id number] [place] [address] Apr, [facility] [id number] [place] [address] Apr, [facility] [id number] [place] [address] Apr, [facility] [id number] [place] [address] Apr, [facility] [id number] [place] [address] Apr, [facility] [id number] [place] [address] Apr, [facility] [id number] [place] [address] Mar, [facility] [id number] [place] [address] Mar, [facility] [address] [place] [id number] [place] [address] Mar, [facility] [id number] [place] [address] Mar, [facility] [id number] [place] [address] Feb, [facility] [id number] [place] [address] Feb, [facility] [id number] [place] [address] Feb, [facility] [id number] [place] [address] 08 Feb, 2013 [facility] [address] [place] [id number] [place] [address] 14 Jan, 2013 [facility] [id number] [place] [address] 14 Jan, 2013 [facility] [id number] [place] [address] 11 Jan, 2013 [facility] [address] [facility] [id number] [place] [address] Jan, [facility] [id number] [place] [address] Jan, [facility] [id number] [place] [address] Jan, [facility] [id number] [place] [address] Jan, [facility] [id number] [place] [address] Jan, [facility] [id number] [place] [address] Jan, [facility] [id number] [place] [address] Dec, [facility] [id number] [place] [address] 16 Dec, 2012 [facility] [id number] [place] [address] 16 Dec, 2012 [facility] [id number] [place] [address] Dec, [facility] [id number] [place] [address] Nov, [facility] [id number] [place] [address] Nov, [facility] [id number] [place] [address] 14 Nov, 2012 [facility] [id number] [place] [address] Nov, [facility] [id number] [place] [address] Oct, [facility] [id number] [place] [address] Sep, [facility] [id number] [place] [address] August, [facility] [address] [id number] [facility] [address] August, [facility] [address] [facility] [id number] [facility] [place] [address] August, [facility] [id number] [facility] [place] [address] August, [facility] [address] [id number] [place] [address] August, [facility] [address] [id number] [facility] [place] [address] August, [facility] [address] [id number] [place] [address] August, [facility] [id number] [place] [address] August, [facility] [id number] [place] [address] August, [facility] [place] [facility] [id number] [place] [address] August, [facility] [address] [id number] [place] [address] August, [facility] [id number] [place] [address] August, [facility] [address] [id number] [place] [address] Jul, [facility] [address] [id number] [facility] [place] [address] Jul, [facility] [address] [id number] [place] [address] 18 Jul, 2012 [facility] [id number] [place] [address] 15 Jul, 2012 [facility] [id number] [place] [address] Jul, [facility] [id number] [place] [address] 08 Jul, 2012 [facility] [address] [id number] [place] [address] Jul, [facility] [id number] [place] [address] Jul, [facility] [id number] [place] [address] Jul, [facility] [id number] [place] [address] Jul, [facility] [id number] [place] [address] Jul, [facility] [id number] [place] [address] Jun, [facility] [id number] [place] [address] Jun, [facility] [id number] [place] [address] Jun, [facility] [id number] [place] [address] Jun, [facility] [id number] [place] [address] May, [facility] [id number] [place] [address] 14 May, 2012 [facility] [id number] [place] [address] 05 May, 2012 [facility] [id number] [place] [address] May, [facility] [id number] [place] [address] May, [facility] [id number] [place] [address] May, [facility] [id number] [place] [address] Apr, [facility] [id number] [place] [address] Apr, [facility] [id number] [place] [address] 30 Apr, 2012 [facility] [id number] [place] [address] 28 Apr, 2012 [facility] [id number] [place] [address] 15 Mar, 2012 [facility] [id number] [place] [address] 14 Mar, 2012 [facility] [id number] [place] [address] Mar, [facility] [id number] [place] [address] Mar, [facility] [id number] [place] [address] Mar, [facility] [id number] [place] [address] Mar, [facility] [id number] [place] [address] Mar, [facility] [id number] [place] [address] Feb, [facility] [id number] [place] [address] Feb, [facility] [id number] [place] [address] Feb, [facility] [id number] [place] [address] Feb, [facility] [id number] [place] [address] Jan, [facility] [id number] [place] [address] Jan, [facility] [id number] [place] [address] 10 Jan, 2012 [facility] [id number] [facility] [place] [address] Jan, [facility] [id number] [place] [address] Jan, [facility] [id number] [place] [address] Jan, [facility] [id number] [place] [address] Dec, [facility] [id number] [place] [address] Dec, [facility] [id number] [place] [address] Nov, [facility] [id number] [place] [address] Sep, [facility] [id number] [place] [address] August, [facility] [id number] [place] [address] August, [facility] [id number] [place] [address] August, [facility] [id number] [place] [address] August, [facility] [id number] [place] [address] August, [facility] [id number] [place] [address] Jun, [facility] [id number] [place] [address] Jun, [facility] [id number] [place] [address] Apr, [facility] [id number] [place] [address] Apr, [facility] [id number] [place] [address] 23 Mar, 2011 [facility] [place] [id number] [place] [address] Feb, [facility] [place] [id number] [place] [address] 14 Feb, 2011 [facility] [place] [id number] [place] [address] 14 Feb, 2011 [facility] [place] [id number] [place] [address] 17 Jan, 2011 [facility] [place] [id number] [place] [address] 15 Jan, 2011 [facility] [place] [id number] [place] [address] 15 Jan, 2011 [facility] [place] [id number] [place] [address] 14 Jan, 2011 [facility] [place] [id number] [place] [address] 15 May, 2010 [facility] [place] [id number] [place] [address] Mar, [facility] [place] [id number] [place] [address] Oct, [facility] [place] [id number] [place] [address] Sep, [facility] [place] [id number] [place] [address] Mar, [facility] [place] [id number] [place] [address] Jan, [facility] [place] [id number] [place] [address] Jan, [facility] [place] [id number] [place] [address] 19 May, 2008 IMMUNIZATIONS No Known Immunizations [...]
--- OUTSIDE RECORDS SUMMARY | 2019-11-23 05:49 | XMS REPORT ---
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 Name Role Phone Migration, Doctor Unavailable Unavailable PROBLEMS Type Condition ICD9-CM Code RAE92-LP Code Onset Dates Condition S tatus SNOMED Code Problem Hematuria, unspecified type R31.9 Ac tive 94266054 Problem Abnormal renal ultrasound R93.429 Acti ve [id number] Problem Anxiety F41.9 Active 67449334 Problem Hypokalemia E87.6 Active 25471365 Problem Abnormal glucose R73.09 Active 102 800591 Problem Chronic pain due to trauma G89.21 Act juanis 551723853 Problem Neuroforaminal stenosis of spine M99.89 Active 905216480773 Problem Neck pain M54.2 Active 90280948 Problem Essential hypertension I10 Active 73438691 Problem Mixed hyperlipidemia E78.2 Active 44919695 ALLERGIES No Information ENCOUNTERS Encounter Location Date Diagnosis [facility] [address] [facility] [id number] [address] [place] [address] Dec, Neuroforaminal stenosis of s pine M99.89 [facility] [address] [facility] [id number] [address] [place] [address] Dec, Neuroforaminal stenosis of s pine M99.89 [facility] [address] [facility] [id number] [address] [place] [address] Nov, [facility] [address] [facility] [id number] [address] [place] [address] Nov, Neuroforaminal stenosis of s pine M99.89 [facility] [address] [facility] [id number] [address] [place] [address] Nov, Acute non-recurrent maxillar y sinusitis J01.00 [facility] [address] [facility] [id number] [address] [place] [address] Oct, Hypokalemia E87.6 [facility] [address] [id number] [address] [place] [address] Oct, Wasp sting, undetermined int ent, initial encounter T63.464A and Cellulitis of left lower extremity L03.116 [place] [address] [facility] [id number] [address] [place] [address] Oct, Neuroforaminal stenosis of s pine M99.89 [place] [address] [id number] [address] [place] [address] Sep, [place] [address] [id number] [address] [place] [address] Sep, [place] [address] [facility] [id number] [address] [place] [address] 18 Sep, 2018 Routine screening for STI (s exually transmitted infection) Z11.3 [place] [address] [facility] [id number] [address] [place] [address] Sep, Routine screening for STI (s exually transmitted infection) Z11.3 ; Well woman exam with routine gynecological exam Z01.419 and Breast cancer screening Z12.39 [place] [address] [facility] [id number] [address] [place] [address] Sep, Neuroforaminal stenosis of s pine M99.89 [place] [address] [facility] [id number] [address] [place] [address] August, Neuroforaminal stenosis of s pine M99.89 [place] [address] [facility] [id number] [address] [place] [address] August, Neuroforaminal stenosis of s pine M99.89 ; Chronic pain due to trauma G89.21 and Mixed hyperlipidemia E78.2 [place] [address] [facility] [id number] [address] [place] [address] 16 Jul, 2018 Viral upper respiratory illn ess J06.9 and Acute non-recurrent frontal sinusitis J01.10 [place] [address] [id number] [address] [place] [address] Jul, Congestion of nasal sinus R0 9.81 [facility] [address] [id number] [address] [place] [address] Jul, Neuroforaminal stenosis of s pine M99.89 and Essential hypertension I10 [facility] [address] [id number] [address] [place] [address] May, Neuroforaminal stenosis of s pine M99.89 [facility] [address] [id number] [address] [place] [address] May, [facility] [address] [id number] [address] [place] [address] May, Congestion of nasal sinus R0 9.81 [facility] [address] [id number] [address] [place] [address] May, [facility] [address] [id number] [address] [place] [address] Apr, Neuroforaminal stenosis of s pine M99.89 [facility] [address] [facility] [id number] [address] [place] [address] Apr, Neuroforaminal stenosis of s pine M99.89 and Chronic pain due to trauma G89.21 [facility] [address] [facility] [id number] [address] [place] [address] Mar, UTI (urinary tract infection ) N39.0 [facility] [address] [id number] [address] [place] [address] Mar, Vertigo R42 [facility] [address] [facility] [id number] [address] [place] [address] Mar, Neuroforaminal stenosis of s pine M99.89 [facility] [address] [facility] [id number] [address] [place] [address] Feb, Extensor tendon disruption M 67.89 [facility] [address] [id number] [address] [place] [address] 02 Feb, 2018 Neuroforaminal stenosis of s pine M99.89 and High risk medication use Z79.899 [facility] [address] [id number] [address] [place] [address] Jan, Hypokalemia E87.6 [facility] [address] [id number] [address] [place] [address] Jan, Flank pain R10.9 and Acute r ight-sided low back pain without sciatica M54.5 [facility] [address] [id number] [address] [place] [address] Jan, Hypokalemia E87.6 [place] [address] [facility] [id number] [address] [place] [address] Jan, [facility] [address] [facility] [id number] [address] [place] [address] Jan, URI, acute J06.9 [facility] [address] [facility] [id number] [address] [place] [address] 05 Jan, 2018 Neuroforaminal stenosis of s jose M99.89 [facility] [address] [facility] [id number] [address] [place] [address] 13 Dec, 2017 Lateral epicondylitis, right elbow M77.11 [facility] [address] [facility] [id number] [address] [place] [address] 11 Dec, 2017 Allergic rhinitis due to monica rosalina, unspecified seasonality J30.1 and Allergic conjunctivitis of both eyes H10.13 [facility] [address] [id number] [address] [place] [address] 10 Dec, 2017 Neuroforaminal stenosis of s jose M99.89 [facility] [address] [facility] [id number] [address] [place] [address] 06 Dec, [address] [facility] [address] [facility] [id number] [address] [place] [address] Dec, Abnormal glucose R73.09 ; Ab normal renal ultrasound R93.429 ; Dysuria R30.0 ; Cystitis without hematuria N30.90 ; Hypokalemia E87.6 ; Mixed hyperlipidemia E78.2 and Hematuria, unspecified type R31.9 [place] [address] [id number] [address] [place] [address] Nov, Hypokalemia E87.6 ; Mixed hy perlipidemia E78.2 and Hematuria, unspecified type R31.9 [place] [address] [id number] [address] [place] [address] Nov, [place] [address] [id number] [address] [place] [address] Nov, Hypokalemia E87.6 [place] [address] [id number] [address] [place] [address] Nov, [place] [address] [id number] [address] [place] [address] Nov, Abnormal renal ultrasound R9 3.429 [place] [address] [facility] [id number] [address] [place] [address] Nov, Abnormal renal ultrasound R9 3.429 [place] [address] [id number] [address] [place] [address] Nov, Hematuria, unspecified type R31.9 and Neuroforaminal stenosis of spine M99.89 [place] [address] [id number] [address] [place] [address] Nov, Dysuria R30.0 [place] [address] [facility] [id number] [address] [place] [address] Oct, Lateral epicondylitis, right elbow M77.11 [place] [address] [facility] [id number] [address] [place] [address] Oct, Neuroforaminal stenosis of s pine M99.89 ; Visit for TB skin test Z11.1 and Essential hypertension I10 [place] [address] [id number] [address] [place] [address] Oct, [place] [address] [id number] [address] [place] [address] Oct, Neuroforaminal stenosis of s pine M99.89 [place] [address] [id number] [address] [place] [address] 10 Oct, 2017 Visit for TB skin test Z11.1 [place] [address] [id number] [address] [place] [address] 05 Oct, 2017 Cystitis without hematuria N 30.90 [place] [address] [id number] [address] [place] [address] 28 Sep, 2017 Screening breast examination Z12.39 [place] [address] [id number] [address] [place] [address] Sep, Dysuria R30.0 and Cystitis w ithout hematuria N30.90 [place] [address] [id number] [address] [place] [address] 14 Sep, 2017 Essential hypertension I10 a nd Neuroforaminal stenosis of spine M99.89 [place] [address] [id number] [address] [place] [address] 04 Sep, 2017 Abnormal glucose R73.09 [place] [address] [id number] [address] [place] [address] August, Lateral epicondylitis, right elbow M77.11 [place] [address] [id number] [address] [place] [address] August, Screen for STD (sexually tra nsmitted disease) Z11.3 [place] [address] [id number] [address] [place] [address] August, Neuroforaminal stenosis of s pine M99.89 ; Mixed hyperlipidemia E78.2 ; Elevated fasting glucose R73.01 ; Screening mammogram, encounter for Z12.31 and Encounter for well woman exam without gynecological exam Z00.00 [facility] [address] [id number] [address] [place] [address] August, Neuroforaminal stenosis of s pine M99.89 [facility] [address] [id number] [address] [place] [address] August, Essential hypertension I10 ; Hypokalemia E87.6 and Mixed hyperlipidemia E78.2 [facility] [address] [id number] [address] [place] [address] Jul, [facility] [address] [id number] [address] [place] [address] Jul, Neuroforaminal stenosis of s jose M99.89 [facility] [address] [id number] [address] [place] [address] Jul, Lateral epicondylitis, right elbow M77.11 [place] [address] [id number] [address] [place] [address] Jul, [facility] [address] [id number] [address] [place] [address] Jun, High ankle sprain of right l ower extremity, initial encounter S93.431A [facility] [address] [id number] [address] [place] [address] Jun, Essential hypertension I10 [facility] [address] [id number] [address] [place] [address] Jun, [facility] [address] [id number] [address] [place] [address] Jun, [facility] [address] [id number] [address] [place] [address] Jun, Neuroforaminal stenosis of s pine M99.89 [facility] [address] [id number] [address] [place] [address] Jun, Pain of right upper extremit y M79.601 and Essential hypertension I10 [place] [id number] [place] [address] Jun, [place] [address] [address] Jun, Dysuria R30.0 ; Acute cystit is with hematuria N30.01 and Screen for STD (sexually transmitted disease) Z11.3 [place] [address] [address] May, Chronic pain due to trauma G 89.21 [place] [address] [place] [id number] [address] [place] [address] May, Essential hypertension I10 [place] [address] [address] May, Neuroforaminal stenosis of s pine M99.89 [place] [address] [address] Apr, Allergic reaction, initial e ncounter T78.40XA [place] [address] [address] Apr, Low back pain, unspecified b ack pain laterality, unspecified chronicity, with sciatica presence unspecified M54.5 ; Acute cystitis with hematuria N30.01 ; Neuroforaminal stenosis of spine M99.89 ; Bilateral acute serous otitis media, recurrence not specified H65.03 ; Mixed hyperlipidemia E78.2 ; Essential hypertension I10 ; Immunization counseling Z71.89 and Encounter for immunization Z23 [place] [id number] [place] [address] Apr, Neck pain M54.2 [place] [address] [place] [id number] [place] [address] Mar, Neuroforaminal stenosis of s pine M99.89 [place] [address] [address] Mar, Pharyngitis due to other org anism J02.8 [facility] [address] [id number] [address] [place] [address] Feb, Neuroforaminal stenosis of s jose M99.89 [facility] [address] [id number] [address] [place] [address] 08 Feb, 2017 UTI (urinary tract infection ) N39.0 [facility] [address] [id number] [address] [place] [address] Feb, Recent urinary tract infecti on Z87.440 ; Neuroforaminal stenosis of spine M99.89 ; Neck pain M54.2 ; Chronic pain due to trauma G89.21 and Recurrent UTI N39.0 [facility] [address] [id number] [address] [place] [address] Feb, [facility] [address] [id number] [address] [place] [address] Jan, Neuroforaminal stenosis of s pine M99.89 [facility] [address] [id number] [address] [place] [address] Dec, Neuroforaminal stenosis of s pine M99.89 [facility] [address] [id number] [address] [place] [address] 18 Dec, 2016 Acute seasonal allergic rhin itis due to pollen J30.1 [facility] [address] [id number] [address] [place] [address] 08 Dec, 2016 [facility] [address] [id number] [address] [place] [address] 08 Dec, 2016 Acute seasonal allergic rhin itis, unspecified trigger J30.2 ; Allergic conjunctivitis of both eyes H10.13 and Dysfunction of both eustachian tubes H69.83 [facility] [address] [id number] [address] [place] [address] 07 Dec, 2016 [facility] [address] [id number] [address] [place] [address] Dec, Nevus D22.9 [facility] [address] [id number] [address] [place] [address] Nov, Chronic pain due to trauma G 89.21 and Neuroforaminal stenosis of spine M99.89 [facility] [address] [id number] [address] [place] [address] Nov, Neuroforaminal stenosis of s pine M99.89 ; Essential hypertension I10 ; Mixed hyperlipidemia E78.2 ; Hypokalemia E87.6 ; Neck pain M54.[address] [facility] [address] [id number] [address] [place] [address] Oct, Neuroforaminal stenosis of s pine M99.89 [facility] [address] [id number] [address] [place] [address] Sep, Neuroforaminal stenosis of s pine M99.89 [facility] [address] [id number] [address] [place] [address] Sep, [facility] [address] [id number] [address] [place] [address] August, [facility] [address] [id number] [address] [place] [address] August, Neck pain M54.2 and Neurofor aminal stenosis of spine M99.89 [facility] [address] [id number] [address] [place] [address] August, Routine gynecological examin ation Z01.419 and Screening breast examination Z12.39 [facility] [address] [id number] [address] [place] [address] Jul, [facility] [address] [id number] [address] [place] [address] Jul, [facility] [address] [id number] [address] [place] [address] Jul, Neuroforaminal stenosis of s pine M99.89 [facility] [address] [id number] [address] [place] [address] Jul, [facility] [address] [id number] [address] [place] [address] Jul, Neuroforaminal stenosis of l umbar 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 [facility] [address] [id number] [address] [place] [address] Jul, [facility] [address] [id number] [address] [place] [address] Jul, [facility] [address] [id number] [address] [place] [address] Jun, Neuroforaminal stenosis of s pine M99.89 [facility] [address] [facility] [id number] [address] [place] [address] Jun, Uterine leiomyoma, unspecifi ed location D25.9 and Allergic reaction caused by a drug, initial encounter T78.40XA [facility] [address] [facility] [id number] [address] [place] [address] Jun, [facility] [address] [facility] [id number] [address] [place] [address] May, UTI symptoms R39.9 and Pain of right sacroiliac joint M53.3 [facility] [address] [facility] [id number] [address] [place] [address] May, Neuroforaminal stenosis of s jose M99.89 [facility] [address] [facility] [id number] [address] [place] [address] May, [facility] [address] [facility] [id number] [address] [place] [address] May, Acute mucoid otitis media of left ear H65.112 and Acute non- recurrent maxillary sinusitis J01.00 [facility] [address] [facility] [id number] [address] [place] [address] May, Acute bacterial conjunctivit is of both eyes H10.33 ; Left arm pain M79.[address] [facility] [address] [facility] [id number] [address] [place] [address] Apr, [facility] [address] [facility] [id number] [address] [place] [phone] Apr, Neuroforaminal stenosis of s pine M99.89 ; Neck pain M54.2 ; Chronic pain due to trauma G89.21 ; Mixed hyperlipidemia E78.2 ; Essential hypertension I10 and Hypokalemia E87.6 [place] [address] [facility] [id number] [address] [place] [id number] Mar, Oral candidiasis B37.0 ; Nathaniel roforaminal stenosis of spine M99.89 ; Neck pain M54.2 and Chronic pain due to trauma G89.21 [place] [address] [address] [place] [id number] [address] [place] [id number] Feb, [place] [address] [facility] [id number] [address] [place] [phone] Feb, [facility] [address] [facility] [id number] [address] [place] [phone] Feb, UTI (urinary tract infection ) N39.0 [place] [place] [id number] [address] [place] [phone] Feb, Dysuria R30.0 [place] [address] [facility] [id number] [address] [place] [phone] Feb, Dysuria R30.0 [place] [address] [facility] [id number] [address] [place] [phone] 02 Feb, 2016 Neuroforaminal stenosis of s pine M99.89 ; Neck pain M54.2 ; Essential hypertension I10 ; Chronic pain due to trauma G89.21 ; Dysuria R30.0 ; Abnormal MRI, shoulder R93.8 and Acute cystitis without hematuria N30.00 [place] [address] [place] [id number] [address] [place] [phone] Jan, [facility] [address] [id number] [address] [place] [phone] Jan, [facility] [address] [id number] [address] [place] [phone] Jan, [facility] [address] [id number] [address] [place] [id number] Jan, Abnormal MRI R93.8 [facility] [address] [id number] [address] [place] [phone] 29 Dec, 2015 [facility] [address] [id number] [address] [place] [id number] 15 Dec, 2015 Acute pain of left shoulder M25.512 [facility] [address] [id number] [address] [place] [phone] 09 Dec, 2015 [facility] [address] [id number] [address] [place] [id number] 08 Dec, [facility] [facility] [address] [id number] [address] [place] [address] 07 Dec, 2015 Acute pain of left shoulder M25.512 [facility] [address] [id number] [address] [place] [address] Nov, [facility] [address] [id number] [address] [place] [address] 16 Nov, 2015 Neuroforaminal stenosis of s pine M99.89 ; Neck pain M54.2 ; Abnormal mammogram R92.8 ; Essential hypertension I10 and Chronic pain due to trauma G89.21 [facility] [address] [id number] [address] [place] [address] Nov, [facility] [address] [id number] [address] [place] [address] Oct, Acute stress disorder F43.0 [facility] [address] [id number] [address] [place] [address] Oct, [facility] [address] [id number] [address] [place] [address] Oct, [facility] [address] [id number] [address] [place] [address] Oct, [facility] [address] [id number] [address] [place] [address] Sep, [facility] [address] [id number] [address] [place] [address] August, [facility] [address] [id number] [address] [place] [address] Jul, Neuroforaminal stenosis of s pine M99.89 ; Neck pain M54.2 ; Abnormal mammogram R92.8 and Essential hypertension I10 [facility] [address] [id number] [address] [place] [address] Jul, [facility] [address] [id number] [address] [place] [address] Jul, [facility] [address] [id number] [address] [place] [address] Jul, Abnormal mammogram R92.8 [facility] [address] [id number] [address] [place] [address] Jul, [facility] [address] [id number] [address] [place] [address] Jul, UTI (urinary tract infection ) N39.0 [facility] [address] [id number] [address] [place] [address] Jul, Dysuria R30.0 [facility] [address] [id number] [address] [place] [address] Jun, [facility] [address] [id number] [address] [place] [address] Jun, [facility] [address] [id number] [address] [place] [address] Jun, Hypokalemia E87.6 and Hematu martina R31.9 [place] [address] [facility] [id number] [address] [place] [address] Jun, Hypokalemia E87.6 [place] [address] [facility] [id number] [address] [place] [address] Jun, [place] [address] [facility] [id number] [address] [place] [address] Jun, Hypokalemia E87.6 [place] [address] [facility] [id number] [address] [place] [address] Jun, Hypokalemia E87.6 [place] [address] [facility] [id number] [address] [place] [address] Jun, Neuroforaminal stenosis of s pine M99.89 ; Hypokalemia E87.6 ; Neck pain M54.2 ; Essential hypertension I10 ; Mixed hyperlipidemia E78.2 and Screening breast examination Z12.39 [place] [address] [address] [place] [id number] [address] [place] [address] Jun, Dysuria R30.0 ; UTI (urinary tract infection) N39.0 and Hematuria R31.9 [place] [address] [facility] [id number] [address] [place] [address] May, [place] [address] [facility] [id number] [address] [place] [address] May, High risk sexual behavior Z7 2.51 ; Hypokalemia E87.6 ; Neuroforaminal stenosis of spine M99.89 ; Neck pain M54.2 ; Essential hypertension I10 ; Mixed hyperlipidemia E78.2 ; STD exposure Z20.2 and Concern about STD in female without diagnosis Z71.1 [place] [address] [facility] [id number] [address] [place] [address] 16 May, 2015 Neuroforaminal stenosis of s pine M99.89 ; Neck pain M54.2 ; Hypokalemia E87.6 ; Essential hypertension I10 and Mixed hyperlipidemia E78.2 [facility] [address] [address] May, [facility] [address] [facility] [id number] [address] [place] [address] 08 May, 2015 High risk sexual behavior Z7 2.51 ; STD exposure Z20.2 and Concern about STD in female without diagnosis Z71.1 [facility] [address] [address] May, [facility] [address] [address] Apr, Neuroforaminal stenosis of s pine M99.89 ; Mixed hyperlipidemia E78.2 ; Essential hypertension I10 and Hypokalemia E87.6 [place] [address] [address] Mar, [facility] [address] [address] Mar, Hypokalemia E87.6 [place] [address] [address] Mar, Neuroforaminal stenosis of s pine M99.89 ; Mixed hyperlipidemia E78.2 ; Neck pain M54.2 ; Essential hypertension I10 ; Abnormal fasting glucose R73.09 ; Hypokalemia E87.[address] [facility] [id number] [place] [address] Feb, Neuroforaminal stenosis of s pine M99.89 ; Mixed hyperlipidemia E78.2 ; Neck pain M54.2 ; Essential hypertension I10 ; Abnormal fasting glucose R73.09 ; Hypokalemia E87.6 and Constipation K59.00 [place] [address] [address] [place] [id number] [address] [place] [address] Feb, Elevated fasting blood sugar R73.01 [facility] [address] [id number] [address] [place] [address] Feb, Elevated fasting blood sugar R73.01 [facility] [address] [id number] [address] [place] [address] Feb, Hair loss L65.9 [facility] [address] [facility] [id number] [address] [place] [address] Feb, Sinusitis J32.9 ; Essential hypertension I10 and Hair loss L65.9 [place] [address] [id number] [address] [place] [address] Jan, [place] [address] [facility] [id number] [address] [place] [address] Jan, Essential hypertension I10 ; Neuroforaminal stenosis of spine M99.89 ; Neck pain M54.2 ; Mixed hyperlipidemia E78.2 and Anxiety F41.9 [place] [address] [facility] [id number] [address] [place] [address] Jan, [place] [address] [facility] [id number] [address] [place] [address] Jan, Mixed hyperlipidemia E78.2 ; Essential (primary) hypertension I10 ; Strain of muscle, fascia and tendon at neck level, subsequent encounter S16.1XXD and Tension-type headache, unspecified, not intractable G44.209 [place] [address] [facility] [id number] [address] [place] [address] Dec, Lumbar back pain 724.2 and N euroforaminal stenosis of spine 724.00 [place] [address] [id number] [address] [place] [address] Nov, [place] [address] [facility] [id number] [address] [place] [address] Nov, Lumbar back pain 724.2 and N euroforaminal stenosis of spine 724.00 [place] [address] [facility] [id number] [address] [place] [address] Nov, Edema 782.3 ; Lumbar back pa in 724.2 ; Essential hypertension, benign 401.1 ; Hyperlipemia 272.4 ; Neuroforaminal stenosis of spine 724.00 and Post-concussion headache 339.20 [facility] [address] [id number] [address] [place] [address] Nov, [facility] [address] [id number] [address] [place] [address] Nov, [facility] [address] [id number] [address] [place] [address] Oct, Essential hypertension, [place] gn 401.1 [facility] [address] [id number] [address] [place] [address] Oct, Edema 782.3 ; Lumbar back pa in 724.2 ; Essential hypertension, benign 401.1 ; Hyperlipemia 272.4 ; Neuroforaminal stenosis of spine 724.00 and Post-concussion headache 339.20 [facility] [address] [id number] [address] [place] [address] Oct, [facility] [address] [id number] [address] [place] [address] Oct, Edema 782.3 [facility] [address] [id number] [address] [place] [address] Oct, Lumbar back pain 724.2 [facility] [address] [id number] [address] [place] [address] Oct, Cervicalgia 723.1 ; Lumbar b ack pain 724.2 and High risk medication use V58.69 [facility] [address] [id number] [address] [place] [address] Sep, [facility] [address] [id number] [address] [place] [address] Sep, Lumbar strain 847.2 [facility] [address] [id number] [address] [place] [address] August, Edema 782.3 and Eustachian t ube dysfunction 381.81 [facility] [address] [facility] [id number] [address] [place] [address] August, [facility] [address] [facility] [id number] [address] [place] [address] August, Eustachian tube dysfunction 381.81 [facility] [address] [facility] [id number] [address] [place] [address] Jul, Otalgia 388.70 and Otitis me jonathon 382.9 [facility] [address] [facility] [id number] [address] [place] [address] Jul, [facility] [address] [facility] [id number] [address] [place] [phone] Jul, [facility] [address] [place] [id number] [address] [place] [address] Jul, [facility] [address] [facility] [id number] [address] [place] [address] Jul, [facility] [address] [facility] [id number] [address] [place] [address] Jul, [facility] [address] [facility] [id number] [address] [place] [phone] Jun, [facility] [address] [facility] [id number] [address] [place] [phone] Jun, [facility] [address] [facility] [id number] [address] [place] [phone] Jun, [facility] [address] [facility] [id number] [address] [place] [phone] May, [facility] [address] [facility] [id number] [address] [place] [address] May, [facility] [address] [facility] [id number] [address] [place] [phone] May, [facility] [address] [id number] [address] [place] [address], [place] [address] May, [facility] [address] [id number] [address] [place] [address], [place] [address] May, [facility] [address] [id number] [address] [place] [address], [place] [address] May, 2014 [facility] [address] [id number] [address] [place] [address], [place] [address] May, [facility] [address] [id number] [address] [place] [address], [place] [address] May, [facility] [address] [id number] [address] [place] [address], [place] [address] May, [facility] [address] [id number] [address] [place] [address], [place] [address] May, [facility] [address] [id number] [address] [place] [address], [place] [address] Apr, [facility] [address] [id number] [address] [place] [address], [place] [address] Apr, [facility] [address] [id number] [address] [place] [address], [place] [address] Apr, [facility] [address] [id number] [address] [place] [address], [place] [address] Apr, [facility] [address] [id number] [address] [place] [address], [place] [address] Apr, [facility] [address] [id number] [address] [place] [address], [place] [address] Apr, [facility] [address] [id number] [address] [place] [address], [place] [address] Apr, [facility] [address] [id number] [address] [place] [address], [place] [address] Apr, [facility] [address] [id number] [address] [place] [address], [place] [address] Apr, [facility] [address] [id number] [address] [place] [address], [place] [address] Apr, [facility] [address] [id number] [address] [place] [address], [place] [address] Apr, [facility] [address] [id number] [address] [place] [address], [place] [address] Apr, [facility] [address] [id number] [address] [place] [address], [place] [address] Apr, [facility] [address] [id number] [address] [place] [address], [place] [address] Apr, [facility] [address] [id number] [address] [place] [address], [place] [address] Apr, [facility] [address] [id number] [address] [place] [address], [place] [address] Mar, [facility] [address] [id number] [address] [place] [address], [place] [address] Mar, [facility] [address] [id number] [address] [place] [address], [place] [address] Mar, [facility] [address] [id number] [address] [place] [address], [place] [address] Mar, [facility] [address] [id number] [address] [place] [address], [place] [address] Feb, [facility] [address] [id number] [address] [place] [address], [place] [address] Feb, [facility] [address] [id number] [address] [place] [address], [place] [address] Feb, [facility] [address] [id number] [address] [place] [address], [place] [address] Feb, [facility] [address] [id number] [address] [place] [address], [place] [address] Jan, [facility] [address] [id number] [address] [place] [address], [place] [address] Jan, [facility] [address] [id number] [address] [place] [address], [place] [address] Jan, [facility] [address] [id number] [address] [place] [address], [place] [address] Jan, [facility] [address] [id number] [address] [place] [address], [place] [address] Jan, [facility] [address] [id number] [address] [place] [address], [place] [address] Jan, [facility] [address] [id number] [address] [place] [address], [place] [address] Jan, [facility] [address] [id number] [address] [place] [address], [place] [address] Jan, [facility] [address] [id number] [address] [place] [address], [place] [address] Dec, 2013 [facility] [address] [id number] [address] [place] [address], [place] [address] 29 Dec, 2013 [facility] [address] [id number] [address] [place] [address], [place] [address] Dec, [facility] [address] [id number] [address] [place] [address], [place] [address] Dec, [facility] [address] [id number] [address] [place] [address] Oct, [facility] [address] [id number] [address] [place] [address], [place] [address] Oct, [facility] [address] [id number] [address] [place] [address], [place] [address] Oct, [facility] [address] [id number] [address] [place] [address], [place] [address] Oct, [facility] [address] [id number] [address] [place] [address], [place] [address] Oct, [facility] [address] [id number] [address] [place] [address], [place] [address] Oct, [facility] [address] [id number] [address] [place] [address], [place] [address] Oct, [facility] [address] [id number] [address] [place] [address], [place] [address] Oct, [facility] [address] [id number] [address] [place] [address], [place] [address] Sep, [facility] [address] [id number] [address] [place] [address], [place] [address] Sep, [facility] [address] [id number] [address] [place] [address], [place] [address] Sep, [facility] [address] [id number] [address] [place] [address], [place] [address] Sep, [facility] [address] [id number] [address] [place] [address], [place] [address] Sep, [facility] [address] [id number] [address] [place] [address], [place] [address] Sep, [facility] [address] [id number] [address] [place] [address], [place] [address] Sep, [facility] [address] [id number] [address] [place] [address], [place] [address] Sep, [facility] [address] [id number] [address] [place] [address], [place] [address] Sep, [facility] [address] [id number] [address] [place] [address], [place] [address] Sep, [facility] [address] [id number] [address] [place] [address], [place] [address] August, [facility] [address] [id number] [address] [place] [address], [place] [address] August, [facility] [address] [id number] [facility] [place] [address] August, [facility] [address] [id number] [facility] [place] [address] August, [facility] [address] [id number] [facility] [place] [address] August, [facility] [address] [id number] [address] [place] [address], [place] [address] August, [facility] [address] [id number] [address] [place] [address], [place] [address] August, [facility] [address] [id number] [address] [place] [address], [place] [address] August, [facility] [address] [id number] [address] [place] [address], [place] [address] August, [facility] [address] [id number] [address] [place] [address], [place] [address] August, [facility] [address] [id number] [address] [place] [address], [place] [address] August, [facility] [address] [id number] [address] [place] [address], [place] [address] August, [facility] [address] [id number] [address] [place] [address], [place] [address] Jul, [facility] [address] [id number] [address] [place] [address], [place] [address] Jul, [facility] [address] [id number] [address] [place] [address], [place] [address] Jul, [facility] [address] [id number] [address] [place] [address], [place] [address] Jul, [facility] [address] [id number] [address] [place] [address], [place] [address] Jul, [facility] [address] [id number] [address] [place] [address], [place] [address] Jul, [facility] [address] [id number] [facility] [place] [address] Jun, [facility] [address] [id number] [facility] [place] [address] Jun, [facility] [address] [id number] [facility] [place] [address] May, [facility] [address] [id number] [address] [place] [address], [place] [address] May, [facility] [address] [id number] [address] [place] [address], [place] [address] Apr, [facility] [address] [id number] [address] [place] [address], [place] [address] Apr, [facility] [address] [id number] [address] [place] [address], [place] [address] Apr, [facility] [address] [id number] [address] [place] [address], [place] [address] Apr, [facility] [address] [id number] [address] [place] [address], [place] [address] Apr, [facility] [address] [id number] [address] [place] [address], [place] [address] Apr, [facility] [address] [id number] [address] [place] [address], [place] [address] Apr, [facility] [address] [id number] [address] [place] [address], [place] [address] Apr, [facility] [address] [id number] [address] [place] [address], [place] [address] Apr, [facility] [address] [id number] [address] [place] [address], [place] [address] Apr, [facility] [address] [id number] [address] [place] [address], [place] [address] Apr, [facility] [address] [id number] [address] [place] [address], [place] [address] Apr, [facility] [address] [id number] [address] [place] [address], [place] [address] Apr, [facility] [address] [id number] [address] [place] [address], [place] [address] Mar, [facility] [address] [id number] [address] [place] [address], [place] [address] Mar, [facility] [address] [id number] [address] [place] [address], [place] [address] Mar, [facility] [address] [id number] [address] [place] [address], [place] [address] Mar, [facility] [address] [id number] [address] [place] [address], [place] [address] Feb, [facility] [facility] [address] [id number] [address] [place] [address], [place] [address] Feb, [facility] [address] [id number] [address] [place] [address], [place] [address] Feb, [facility] [address] [id number] [address] [place] [address], [place] [address] Feb, [facility] [address] [id number] [address] [place] [address], [place] [address] 14 Jan, 2013 [facility] [address] [id number] [address] [place] [address], [place] [address] 14 Jan, 2013 [facility] [address] [id number] [address] [place] [address], [place] [address] 11 Jan, 2013 [facility] [address] [id number] [address] [place] [address], [place] [address] 11 Jan, 2013 [facility] [address] [id number] [address] [place] [address], [place] [address] 10 Jan, 2013 [facility] [address] [id number] [address] [place] [address], [place] [address] Jan, [facility] [address] [id number] [address] [place] [address], [place] [address] Jan, [facility] [address] [id number] [address] [place] [address], [place] [address] Jan, [facility] [address] [id number] [address] [place] [address], [place] [address] Jan, [facility] [address] [id number] [address] [place] [address], [place] [address] Dec, [facility] [address] [id number] [address] [place] [address], [place] [address] 16 Dec, 2012 [facility] [address] [id number] [address] [place] [address], [place] [address] Dec, [facility] [address] [id number] [address] [place] [address], [place] [address] Dec, [facility] [address] [id number] [address] [place] [address], [place] [address] Nov, [facility] [address] [id number] [address] [place] [address], [place] [address] Nov, [facility] [address] [id number] [address] [place] [address], [place] [address] Nov, [facility] [address] [id number] [address] [place] [address], [place] [address] Nov, [facility] [address] [id number] [address] [place] [address], [place] [address] Oct, [facility] [address] [id number] [address] [place] [address], [place] [address] Sep, [facility] [address] [id number] [address] [place] [address], [place] [address] August, [facility] [address] [id number] [address] [place] [address], [place] [address] August, [facility] [address] [id number] [address] [place] [address], [place] [address] August, [facility] [address] [id number] [address] [place] [address], [place] [address] August, [facility] [address] [id number] [address] [place] [address], [place] [address] August, [facility] [address] [id number] [address] [place] [address], [place] [address] August, [facility] [address] [id number] [address] [place] [address], [place] [address] August, [facility] [address] [id number] [address] [place] [address], [place] [address] August, [facility] [address] [id number] [address] [place] [address], [place] [address] August, [facility] [address] [id number] [address] [place] [address], [place] [address] August, [facility] [address] [id number] [address] [place] [address], [place] [address] August, [facility] [address] [id number] [address] [place] [address], [place] [address] August, [facility] [address] [id number] [address] [place] [address], [place] [address] Jul, [facility] [address] [id number] [address] [place] [address], [place] [address] Jul, [facility] [address] [id number] [address] [place] [address], [place] [address] 18 Jul, 2012 [facility] [address] [id number] [address] [place] [address], [place] [address] 15 Jul, 2012 [facility] [address] [id number] [address] [place] [address], [place] [address] Jul, [facility] [address] [id number] [address] [place] [address], [place] [address] 08 Jul, 2012 [facility] [address] [id number] [address] [place] [address], [place] [address] Jul, [facility] [address] [id number] [address] [place] [address], [place] [address] Jul, [facility] [address] [id number] [address] [place] [address], [place] [address] Jul, [facility] [address] [id number] [address] [place] [address], [place] [address] Jul, [facility] [address] [id number] [address] [place] [address], [place] [address] Jul, [facility] [address] [id number] [address] [place] [address], [place] [address] Jun, [facility] [address] [id number] [address] [place] [address], [place] [address] Jun, [facility] [address] [id number] [address] [place] [address], [place] [address] Jun, [facility] [address] [id number] [address] [place] [address], [place] [address] Jun, [facility] [address] [id number] [address] [place] [address], [place] [address] May, [facility] [address] [id number] [address] [place] [address], [place] [address] 14 May, 2012 [facility] [address] [id number] [address] [place] [address], [place] [address] 05 May, 2012 [facility] [address] [id number] [address] [place] [address], [place] [address] May, [facility] [address] [id number] [address] [place] [address], [place] [address] May, [facility] [address] [id number] [address] [place] [address], [place] [address] May, [facility] [address] [id number] [address] [place] [address], [place] [address] 31 Apr, 2012 [facility] [address] [id number] [address] [place] [address], [place] [address] 31 Apr, 2012 [facility] [address] [id number] [address] [place] [address], [place] [address] 30 Apr, 2012 [facility] [address] [id number] [address] [place] [address], [place] [address] 28 Apr, 2012 [facility] [address] [id number] [address] [place] [address], [place] [address] 15 Mar, 2012 [facility] [address] [id number] [address] [place] [address], [place] [address] 14 Mar, 2012 [facility] [address] [id number] [address] [place] [address], [place] [address] 14 Mar, 2012 [facility] [address] [id number] [address] [place] [address], [place] [address] 14 Mar, 2012 [facility] [address] [id number] [address] [place] [address], [place] [address] 14 Mar, 2012 [facility] [address] [id number] [address] [place] [address], [place] [address] 06 Mar, 2012 [facility] [address] [id number] [address] [place] [address], [place] [address] 06 Mar, 2012 [facility] [address] [id number] [address] [place] [address], [place] [address] Feb, [facility] [address] [id number] [address] [place] [address], [place] [address] Feb, [facility] [address] [id number] [address] [place] [address], [place] [address] Feb, [facility] [address] [id number] [address] [place] [address], [place] [address] Feb, [facility] [address] [id number] [address] [place] [address], [place] [address] Jan, [facility] [address] [id number] [address] [place] [address], [place] [address] Jan, [facility] [address] [id number] [address] [place] [address], [place] [address] Jan, [facility] [address] [id number] [address] [place] [address], [place] [address] Jan, [facility] [address] [id number] [address] [place] [address], [place] [address] Jan, [facility] [address] [id number] [address] [place] [address], [place] [address] Jan, [facility] [address] [id number] [address] [place] [address], [place] [address] Dec, [facility] [address] [id number] [address] [place] [address], [place] [address] Dec, [facility] [address] [id number] [address] [place] [address], [place] [address] Nov, [facility] [address] [id number] [address] [place] [address], [place] [address] Sep, [facility] [address] [id number] [address] [place] [address], [place] [address] August, [facility] [address] [id number] [address] [place] [address], [place] [address] August, [facility] [address] [id number] [address] [place] [address], [place] [address] August, [facility] [address] [id number] [address] [place] [address], [place] [address] August, [facility] [address] [id number] [address] [place] [address], [place] [address] August, [facility] [address] [id number] [address] [place] [address], [place] [address] Jun, [facility] [address] [id number] [address] [place] [address], [place] [address] Jun, [facility] [address] [id number] [address] [place] [address], [place] [address] Apr, [facility] [address] [id number] [address] [place] [address], [place] [address] Apr, [facility] [address] [id number] [address] [place] [address], [place] [address] Mar, [facility] [address] [id number] [address] [place] [address], [place] [address] Feb, [facility] [address] [id number] [address] [place] [address], [place] [address] Feb, [facility] [address] [id number] [address] [place] [address], [place] [address] Feb, [facility] [address] [id number] [address] [place] [address], [place] [address] 17 Jan, 2011 [facility] [address] [id number] [address] [place] [address] 15 Jan, 2011 [facility] [address] [id number] [address] [place] [address], [place] [address] 15 Jan, 2011 [facility] [address] [id number] [address] [place] [address] 14 Jan, 2011 [facility] [address] [id number] [address] [place] [address] 15 May, 2010 [facility] [address] [id number] [address] [place] [address] Mar, [facility] [address] [id number] [address] [place] [address], [place] [address] Oct, [facility] [address] [id number] [address] [place] [address] Sep, [facility] [address] [id number] [address] [place] [address] Mar, [facility] [address] [id number] [address] [place] [address] Jan, [facility] [address] [facility] [id number] [address] [place] [address] Jan, [facility] [address] [facility] [id number] [address] [place] [address] May, IMMUNIZATIONS No Known Immunizations SOCIAL HISTORY Never Assessed REASON FOR VISIT PLAN OF CARE VITAL SIGNS Height 62 in 2013-09-30 Weight 181.6 lbs 2013-09-30 Temperature 97 degrees Fahrenheit 2013-09-30 Heart Rate 86 bpm 2013-09-30 Respiratory Rate 16 2013-09-30 Blood pressure systolic 122 mmHg 2013-09-30 Blood pressure diastolic 70 mmHg 2013-09-30 MEDICATIONS Unknown Medications RESULTS No Results PROCEDURES Procedure Date Ordered Result Body Site HIV-1 September 30, 2013 BLOOD SEROLOGY, QUALITATIVE September 30, 2013 LIPID PANEL September 30, 2013 COMPREHEN METABOLIC PANEL September 30, 2013 DRAIN/INJECT, JOINT/BURSA September 30, 2013 VENIPUNCT, ROUTINE* September 30, 2013 INSTRUCTIONS MEDICATIONS ADMINISTERED No Known Medications MEDICAL (GENERAL) HISTORY Type Description Date Medical History hypertension Medical History Colposcopy with loop electro de excision of the cervix was performed 06/2012, mild squamous atypia (no definite dyplasia). Performed at [facility] Dr. Joy. Medical History Acute [...]
--- OUTSIDE RECORDS SUMMARY | 2019-11-23 05:50 | XMS REPORT ---
Author Author Liana Coe Doctor Organization [facility] Address Unknown Phone Unavailable Care Team Providers Care Land Law Examiner Name Role Phone Migration, Doctor Unavailable Unavailable PROBLEMS Type Condition ICD9-CM Code ZIY41-AS Code Onset Dates Condition S tatus SNOMED Code Problem Hematuria, unspecified type R31.9 Ac tive 94619787 Problem Abnormal renal ultrasound R93.429 Acti ve [id number] Problem Anxiety F41.9 Active 36051787 Problem Hypokalemia E87.6 Active 80848651 Problem Abnormal glucose R73.09 Active 102 653351 Problem Chronic pain due to trauma G89.21 Act juanis [id number] Problem Neuroforaminal stenosis of spine M99.89 Active [id number] Problem Neck pain M54.2 Active 62753408 Problem Essential hypertension I10 Active 01270646 Problem Mixed hyperlipidemia E78.2 Active 59620819 ALLERGIES No Information ENCOUNTERS Encounter Location Date Diagnosis [facility] [address] [facility] [id number] [address] [place] [address] Dec, Neuroforaminal stenosis of s pine M99.89 [facility] [address] [facility] [id number] [address] [place] [address] Dec, Neuroforaminal stenosis of s pine M99.89 [facility] [address] [facility] [id number] [address] [place] [address] Nov, [facility] [address] [facility] [id number] [address] [place] [address] Nov, Neuroforaminal stenosis of s pine M99.89 [facility] [address] [facility] [id number] [address] [place] [address] Nov, Acute non-recurrent maxillar y sinusitis J01.00 [facility] [address] [facility] [id number] [address] [place] [address] Oct, Hypokalemia E87.6 [facility] [address] [id number] [address] [place] [address] Oct, Wasp sting, undetermined int ent, initial encounter T63.464A and Cellulitis of left lower extremity L03.116 [place] [address] [facility] [id number] [address] [place] [address] Oct, Neuroforaminal stenosis of s pine M99.89 [place] [address] [id number] [address] [place] [address] Sep, [place] [address] [id number] [address] [place] [address] Sep, [place] [address] [facility] [id number] [address] [place] [address] 18 Sep, 2018 Routine screening for STI (s exually transmitted infection) Z11.3 [place] [address] [facility] [id number] [address] [place] [address] Sep, Routine screening for STI (s exually transmitted infection) Z11.3 ; Well woman exam with routine gynecological exam Z01.419 and Breast cancer screening Z12.39 [place] [address] [facility] [id number] [address] [place] [address] Sep, Neuroforaminal stenosis of s pine M99.89 [place] [address] [facility] [id number] [address] [place] [address] August, Neuroforaminal stenosis of s pine M99.89 [place] [address] [facility] [id number] [address] [place] [address] August, Neuroforaminal stenosis of s pine M99.89 ; Chronic pain due to trauma G89.21 and Mixed hyperlipidemia E78.2 [place] [address] [facility] [id number] [address] [place] [address] 16 Jul, 2018 Viral upper respiratory illn ess J06.9 and Acute non-recurrent frontal sinusitis J01.10 [place] [address] [id number] [address] [place] [address] Jul, Congestion of nasal sinus R0 9.81 [facility] [address] [id number] [address] [place] [address] Jul, Neuroforaminal stenosis of s pine M99.89 and Essential hypertension I10 [facility] [address] [id number] [address] [place] [address] May, Neuroforaminal stenosis of s pine M99.89 [facility] [address] [id number] [address] [place] [address] May, [facility] [address] [id number] [address] [place] [address] May, Congestion of nasal sinus R0 9.81 [facility] [address] [id number] [address] [place] [address] May, [facility] [address] [id number] [address] [place] [address] Apr, Neuroforaminal stenosis of s pine M99.89 [facility] [address] [facility] [id number] [address] [place] [address] Apr, Neuroforaminal stenosis of s pine M99.89 and Chronic pain due to trauma G89.21 [facility] [address] [facility] [id number] [address] [place] [address] Mar, UTI (urinary tract infection ) N39.0 [facility] [address] [id number] [address] [place] [address] Mar, Vertigo R42 [facility] [address] [facility] [id number] [address] [place] [address] Mar, Neuroforaminal stenosis of s pine M99.89 [facility] [address] [facility] [id number] [address] [place] [address] Feb, Extensor tendon disruption M 67.89 [facility] [address] [id number] [address] [place] [address] 02 Feb, 2018 Neuroforaminal stenosis of s pine M99.89 and High risk medication use Z79.899 [facility] [address] [id number] [address] [place] [address] Jan, Hypokalemia E87.6 [facility] [address] [id number] [address] [place] [address] Jan, Flank pain R10.9 and Acute r ight-sided low back pain without sciatica M54.5 [facility] [address] [id number] [address] [place] [address] Jan, Hypokalemia E87.6 [place] [address] [facility] [id number] [address] [place] [address] Jan, [facility] [address] [facility] [id number] [address] [place] [address] Jan, URI, acute J06.9 [facility] [address] [facility] [id number] [address] [place] [address] 05 Jan, 2018 Neuroforaminal stenosis of s jose M99.89 [facility] [address] [facility] [id number] [address] [place] [address] 13 Dec, 2017 Lateral epicondylitis, right elbow M77.11 [facility] [address] [facility] [id number] [address] [place] [address] 11 Dec, 2017 Allergic rhinitis due to monica rosalina, unspecified seasonality J30.1 and Allergic conjunctivitis of both eyes H10.13 [facility] [address] [id number] [address] [place] [address] 10 Dec, 2017 Neuroforaminal stenosis of s jose M99.89 [facility] [address] [facility] [id number] [address] [place] [address] 06 Dec, 2017 Mixed hyperlipidemia E78.2 [facility] [address] [facility] [id number] [address] [place] [address] Dec, Abnormal glucose R73.09 ; Ab normal renal ultrasound R93.429 ; Dysuria R30.0 ; Cystitis without hematuria N30.90 ; Hypokalemia E87.6 ; Mixed hyperlipidemia E78.2 and Hematuria, unspecified type R31.9 [place] [address] [id number] [address] [place] [address] Nov, Hypokalemia E87.6 ; Mixed hy perlipidemia E78.2 and Hematuria, unspecified type R31.9 [place] [address] [id number] [address] [place] [address] Nov, [place] [address] [id number] [address] [place] [address] Nov, Hypokalemia E87.6 [place] [address] [id number] [address] [place] [address] Nov, [place] [address] [id number] [address] [place] [address] Nov, Abnormal renal ultrasound R9 3.429 [place] [address] [facility] [id number] [address] [place] [address] Nov, Abnormal renal ultrasound R9 3.429 [place] [address] [id number] [address] [place] [address] Nov, Hematuria, unspecified type R31.9 and Neuroforaminal stenosis of spine M99.89 [place] [address] [id number] [address] [place] [address] Nov, Dysuria R30.0 [place] [address] [facility] [id number] [address] [place] [address] Oct, Lateral epicondylitis, right elbow M77.11 [place] [address] [facility] [id number] [address] [place] [address] Oct, Neuroforaminal stenosis of s pine M99.89 ; Visit for TB skin test Z11.1 and Essential hypertension I10 [place] [address] [id number] [address] [place] [address] Oct, [place] [address] [id number] [address] [place] [address] Oct, Neuroforaminal stenosis of s pine M99.89 [place] [address] [id number] [address] [place] [address] 10 Oct, 2017 Visit for TB skin test Z11.1 [place] [address] [id number] [address] [place] [address] 05 Oct, 2017 Cystitis without hematuria N 30.90 [place] [address] [id number] [address] [place] [address] 28 Sep, 2017 Screening breast examination Z12.39 [place] [address] [id number] [address] [place] [address] Sep, Dysuria R30.0 and Cystitis w ithout hematuria N30.90 [place] [address] [id number] [address] [place] [address] 14 Sep, 2017 Essential hypertension I10 a nd Neuroforaminal stenosis of spine M99.89 [place] [address] [id number] [address] [place] [address] 04 Sep, 2017 Abnormal glucose R73.09 [place] [address] [id number] [address] [place] [address] August, Lateral epicondylitis, right elbow M77.11 [place] [address] [id number] [address] [place] [address] August, Screen for STD (sexually tra nsmitted disease) Z11.3 [place] [address] [id number] [address] [place] [address] August, Neuroforaminal stenosis of s pine M99.89 ; Mixed hyperlipidemia E78.2 ; Elevated fasting glucose R73.01 ; Screening mammogram, encounter for Z12.31 and Encounter for well woman exam without gynecological exam Z00.00 [facility] [address] [id number] [address] [place] [address] August, Neuroforaminal stenosis of s pine M99.89 [facility] [address] [id number] [address] [place] [address] August, Essential hypertension I10 ; Hypokalemia E87.6 and Mixed hyperlipidemia E78.2 [facility] [address] [id number] [address] [place] [address] Jul, [facility] [address] [id number] [address] [place] [address] Jul, Neuroforaminal stenosis of s jose M99.89 [facility] [address] [id number] [address] [place] [address] Jul, Lateral epicondylitis, right elbow M77.11 [place] [address] [id number] [address] [place] [address] Jul, [facility] [address] [id number] [address] [place] [address] Jun, High ankle sprain of right l ower extremity, initial encounter S93.431A [facility] [address] [id number] [address] [place] [address] Jun, Essential hypertension I10 [facility] [address] [id number] [address] [place] [address] Jun, [facility] [address] [id number] [address] [place] [address] Jun, [facility] [address] [id number] [address] [place] [address] Jun, Neuroforaminal stenosis of s pine M99.89 [facility] [address] [id number] [address] [place] [address] Jun, Pain of right upper extremit y M79.601 and Essential hypertension I10 [place] [id number] [place] [address] Jun, [place] [address] [address] Jun, Dysuria R30.0 ; Acute cystit is with hematuria N30.01 and Screen for STD (sexually transmitted disease) Z11.3 [place] [address] [address] May, Chronic pain due to trauma G 89.21 [place] [address] [place] [id number] [address] [place] [address] May, Essential hypertension I10 [place] [address] [address] May, Neuroforaminal stenosis of s pine M99.89 [place] [address] [address] Apr, Allergic reaction, initial e ncounter T78.40XA [place] [address] [address] Apr, Low back pain, unspecified b ack pain laterality, unspecified chronicity, with sciatica presence unspecified M54.5 ; Acute cystitis with hematuria N30.01 ; Neuroforaminal stenosis of spine M99.89 ; Bilateral acute serous otitis media, recurrence not specified H65.03 ; Mixed hyperlipidemia E78.2 ; Essential hypertension I10 ; Immunization counseling Z71.89 and Encounter for immunization Z23 [place] [id number] [place] [address] Apr, Neck pain M54.2 [place] [address] [place] [id number] [address] Mar, Neuroforaminal stenosis of s pine M99.89 [place] [address] [address] Mar, Pharyngitis due to other org anism J02.8 [facility] [address] [id number] [address] [place] [address] Feb, Neuroforaminal stenosis of s jose M99.89 [facility] [address] [id number] [address] [place] [address] 08 Feb, 2017 UTI (urinary tract infection ) N39.0 [facility] [address] [id number] [address] [place] [address] Feb, Recent urinary tract infecti on Z87.440 ; Neuroforaminal stenosis of spine M99.89 ; Neck pain M54.2 ; Chronic pain due to trauma G89.21 and Recurrent UTI N39.0 [facility] [address] [id number] [address] [place] [address] Feb, [facility] [address] [id number] [address] [place] [address] Jan, Neuroforaminal stenosis of s pine M99.89 [facility] [address] [id number] [address] [place] [address] Dec, Neuroforaminal stenosis of s pine M99.89 [facility] [address] [id number] [address] [place] [address] 18 Dec, 2016 Acute seasonal allergic rhin itis due to pollen J30.1 [facility] [address] [id number] [address] [place] [address] 08 Dec, 2016 [facility] [address] [id number] [address] [place] [address] 08 Dec, 2016 Acute seasonal allergic rhin itis, unspecified trigger J30.2 ; Allergic conjunctivitis of both eyes H10.13 and Dysfunction of both eustachian tubes H69.83 [facility] [address] [id number] [address] [place] [address] 07 Dec, 2016 [facility] [address] [id number] [address] [place] [address] Dec, Nevus D22.9 [facility] [address] [id number] [address] [place] [address] Nov, Chronic pain due to trauma G 89.21 and Neuroforaminal stenosis of spine M99.89 [facility] [address] [id number] [address] [place] [address] Nov, Neuroforaminal stenosis of s pine M99.89 ; Essential hypertension I10 ; Mixed hyperlipidemia E78.2 ; Hypokalemia E87.6 ; Neck pain M54.2 and Nevus D22.9 [facility] [address] [id number] [address] [place] [address] Oct, Neuroforaminal stenosis of s pine M99.89 [facility] [address] [id number] [address] [place] [address] Sep, Neuroforaminal stenosis of s pine M99.89 [facility] [address] [id number] [address] [place] [address] Sep, [facility] [address] [id number] [address] [place] [address] August, [facility] [address] [id number] [address] [place] [address] August, Neck pain M54.2 and Neurofor aminal stenosis of spine M99.89 [facility] [address] [id number] [address] [place] [address] August, Routine gynecological examin ation Z01.419 and Screening breast examination Z12.39 [facility] [address] [id number] [address] [place] [address] Jul, [facility] [address] [id number] [address] [place] [address] Jul, [facility] [address] [id number] [address] [place] [address] Jul, Neuroforaminal stenosis of s pine M99.89 [facility] [address] [id number] [address] [place] [address] Jul, [facility] [address] [id number] [address] [place] [address] Jul, Neuroforaminal stenosis of l umbar 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 [facility] [address] [id number] [address] [place] [address] Jul, [facility] [address] [id number] [address] [place] [address] Jul, [facility] [address] [id number] [address] [place] [address] Jun, Neuroforaminal stenosis of s pine M99.89 [facility] [address] [facility] [id number] [address] [place] [address] Jun, Uterine leiomyoma, unspecifi ed location D25.9 and Allergic reaction caused by a drug, initial encounter T78.40XA [facility] [address] [facility] [id number] [address] [place] [address] Jun, [facility] [address] [facility] [id number] [address] [place] [address] May, UTI symptoms R39.9 and Pain of right sacroiliac joint M53.3 [facility] [address] [facility] [id number] [address] [place] [address] May, Neuroforaminal stenosis of s jose M99.89 [facility] [address] [facility] [id number] [address] [place] [address] May, [facility] [address] [facility] [id number] [address] [place] [address] May, Acute mucoid otitis media of left ear H65.112 and Acute non- recurrent maxillary sinusitis J01.00 [facility] [address] [facility] [id number] [address] [place] [address] May, Acute bacterial conjunctivit is of both eyes H10.33 ; Left arm pain M79.602 and Hypokalemia E87.6 [facility] [address] [facility] [id number] [address] [place] [address] Apr, [facility] [address] [facility] [id number] [address] [place] [address] Apr, Neuroforaminal stenosis of s pine M99.89 ; Neck pain M54.2 ; Chronic pain due to trauma G89.21 ; Mixed hyperlipidemia E78.2 ; Essential hypertension I10 and Hypokalemia E87.6 [place] [address] [facility] [id number] [address] [place] [address] Mar, Oral candidiasis B37.0 ; Nathaniel roforaminal stenosis of spine M99.89 ; Neck pain M54.2 and Chronic pain due to trauma G89.21 [place] [address] [place] [id number] [address] [place] [address] Feb, [place] [address] [facility] [id number] [address] [place] [address] Feb, [facility] [address] [facility] [id number] [address] [place] [address] Feb, UTI (urinary tract infection ) N39.0 [place] [address] [place] [id number] [address] [place] [address] Feb, Dysuria R30.0 [place] [address] [facility] [id number] [address] [place] [address] Feb, Dysuria R30.0 [place] [address] [facility] [id number] [address] [place] [address] 02 Feb, 2016 Neuroforaminal stenosis of s pine M99.89 ; Neck pain M54.2 ; Essential hypertension I10 ; Chronic pain due to trauma G89.21 ; Dysuria R30.0 ; Abnormal MRI, shoulder R93.8 and Acute cystitis without hematuria N30.00 [place] [address] [place] [id number] [address] [place] [address] Jan, [facility] [address] [id number] [address] [place] [address] Jan, [facility] [address] [id number] [address] [place] [address] Jan, [facility] [address] [id number] [address] [place] [address] Jan, Abnormal MRI R93.8 [facility] [address] [id number] [address] [place] [address] 29 Dec, 2015 [facility] [address] [id number] [address] [place] [address] 15 Dec, 2015 Acute pain of left shoulder M25.512 [facility] [address] [id number] [address] [place] [address] 09 Dec, 2015 [facility] [address] [id number] [address] [place] [address] 08 Dec, 2015 [facility] [address] [id number] [address] [place] [address] 07 Dec, 2015 Acute pain of left shoulder M25.512 [facility] [address] [id number] [address] [place] [address] Nov, [facility] [address] [id number] [address] [place] [address] 16 Nov, 2015 Neuroforaminal stenosis of s pine M99.89 ; Neck pain M54.2 ; Abnormal mammogram R92.8 ; Essential hypertension I10 and Chronic pain due to trauma G89.21 [facility] [address] [id number] [address] [place] [id number] Nov, [facility] [address] [id number] [address] [place] [id number] Oct, Acute stress disorder F43.0 [facility] [address] [id number] [address] [place] [id number] Oct, [facility] [address] [id number] [address] [place] [id number] Oct, [facility] [address] [id number] [address] [place] [id number] Oct, [facility] [address] [id number] [address] [place] [id number] Sep, [facility] [address] [id number] [address] [place] [id number] August, [facility] [address] [id number] [address] [place] [id number] Jul, Neuroforaminal stenosis of s pine M99.89 ; Neck pain M54.2 ; Abnormal mammogram R92.8 and Essential hypertension I10 [facility] [address] [id number] [address] [place] [id number] Jul, [facility] [address] [id number] [address] [place] [id number] Jul, [facility] [address] [id number] [address] [place] [id number] Jul, Abnormal mammogram R92.8 [facility] [address] [id number] [address] [place] [id number] Jul, [facility] [address] [id number] [address] [place] [id number] Jul, UTI (urinary tract infection ) N39.0 [facility] [address] [id number] [address] [place] [address] Jul, Dysuria R30.0 [facility] [address] [id number] [address] [place] [address] Jun, [facility] [address] [id number] [address] [place] [address] Jun, [facility] [address] [id number] [address] [place] [address] Jun, Hypokalemia E87.6 and Hematu martina R31.9 [place] [address] [address] [facility] [id number] [address] [place] [address] Jun, Hypokalemia E87.6 [place] [address] [address] [facility] [id number] [address] [place] [address] Jun, [place] [address] [address] [facility] [id number] [address] [place] [address] Jun, Hypokalemia E87.6 [place] [address] [address] [facility] [id number] [address] [place] [address] Jun, Hypokalemia E87.6 [place] [address] [address] [facility] [id number] [address] [place] [address] Jun, Neuroforaminal stenosis of s pine M99.89 ; Hypokalemia E87.6 ; Neck pain M54.2 ; Essential hypertension I10 ; Mixed hyperlipidemia E78.2 and Screening breast examination Z12.39 [place] [address] [address] [place] [id number] [address] [place] [address] Jun, Dysuria R30.0 ; UTI (urinary tract infection) N39.0 and Hematuria R31.9 [place] [address] [address] [facility] [id number] [address] [place] [address] May, [place] [address] [address] [facility] [id number] [address] [place] [address] May, High risk sexual behavior Z7 2.51 ; Hypokalemia E87.6 ; Neuroforaminal stenosis of spine M99.89 ; Neck pain M54.2 ; Essential hypertension I10 ; Mixed hyperlipidemia E78.2 ; STD exposure Z20.2 and Concern about STD in female without diagnosis Z71.1 [place] [address] [address] [facility] [id number] [address] [place] [address] 16 May, 2015 Neuroforaminal stenosis of s pine M99.89 ; Neck pain M54.2 ; Hypokalemia E87.6 ; Essential hypertension I10 and Mixed hyperlipidemia E78.2 [facility] [address] [address] May, [facility] [address] [facility] [id number] [address] [place] [address] 08 May, 2015 High risk sexual behavior Z7 2.51 ; STD exposure Z20.2 and Concern about STD in female without diagnosis Z71.1 [facility] [address] [address] May, [facility] [address] [address] Apr, Neuroforaminal stenosis of s pine M99.89 ; Mixed hyperlipidemia E78.2 ; Essential hypertension I10 and Hypokalemia E87.6 [place] [address] [address] Mar, [facility] [address] [address] Mar, Hypokalemia E87.6 [place] [address] [address] Mar, Neuroforaminal stenosis of s pine M99.89 ; Mixed hyperlipidemia E78.2 ; Neck pain M54.2 ; Essential hypertension I10 ; Abnormal fasting glucose R73.09 ; Hypokalemia E87.6 and Constipation K59.00 [facility] [id number] [place] [address] Feb, Neuroforaminal stenosis of s pine M99.89 ; Mixed hyperlipidemia E78.2 ; Neck pain M54.2 ; Essential hypertension I10 ; Abnormal fasting glucose R73.09 ; Hypokalemia E87.6 and Constipation K59.00 [place] [address] [address] [place] [id number] [address] [place] [address] Feb, Elevated fasting blood sugar R73.01 [facility] [address] [id number] [address] [place] [address] Feb, Elevated fasting blood sugar R73.01 [facility] [address] [id number] [address] [place] [address] Feb, Hair loss L65.9 [facility] [address] [facility] [id number] [address] [place] [address] Feb, Sinusitis J32.9 ; Essential hypertension I10 and Hair loss L65.9 [place] [address] [id number] [address] [place] [address] Jan, [place] [address] [address] [facility] [id number] [address] [place] [address] Jan, Essential hypertension I10 ; Neuroforaminal stenosis of spine M99.89 ; Neck pain M54.2 ; Mixed hyperlipidemia E78.2 and Anxiety F41.9 [place] [address] [address] [facility] [id number] [address] [place] [address] Jan, [place] [address] [address] [facility] [id number] [address] [place] [address] Jan, Mixed hyperlipidemia E78.2 ; Essential (primary) hypertension I10 ; Strain of muscle, fascia and tendon at neck level, subsequent encounter S16.1XXD and Tension-type headache, unspecified, not intractable G44.209 [place] [address] [address] [facility] [id number] [address] [place] [address] Dec, Lumbar back pain 724.2 and N euroforaminal stenosis of spine 724.00 [place] [address] [id number] [address] [place] [address] Nov, [place] [address] [address] [facility] [id number] [address] [place] [address] Nov, Lumbar back pain 724.2 and N euroforaminal stenosis of spine 724.00 [place] [address] [address] [facility] [id number] [address] [place] [address] Nov, Edema 782.3 ; Lumbar back pa in 724.2 ; Essential hypertension, benign 401.1 ; Hyperlipemia 272.4 ; Neuroforaminal stenosis of spine 724.00 and Post-concussion headache 339.20 [facility] [address] [id number] [address] [place] [address] Nov, [facility] [address] [id number] [address] [place] [address] Nov, [facility] [address] [id number] [address] [place] [address] Oct, Essential hypertension, sheridan gn 401.1 [facility] [address] [id number] [address] [place] [address] Oct, Edema 782.3 ; Lumbar back pa in 724.2 ; Essential hypertension, benign 401.1 ; Hyperlipemia 272.4 ; Neuroforaminal stenosis of spine 724.00 and Post-concussion headache 339.20 [facility] [address] [id number] [address] [place] [address] Oct, [facility] [address] [id number] [address] [place] [address] Oct, Edema 782.3 [facility] [address] [id number] [address] [place] [address] Oct, Lumbar back pain 724.2 [facility] [address] [id number] [address] [place] [address] Oct, Cervicalgia 723.1 ; Lumbar b ack pain 724.2 and High risk medication use V58.69 [facility] [address] [id number] [address] [place] [address] Sep, [facility] [address] [id number] [address] [place] [address] Sep, Lumbar strain 847.2 [facility] [address] [id number] [address] [place] [address] August, Edema 782.3 and Eustachian t ube dysfunction 381.81 [facility] [address] [facility] [id number] [address] [place] [address] August, [facility] [address] [facility] [id number] [address] [place] [address] August, Eustachian tube dysfunction 381.81 [facility] [address] [facility] [id number] [address] [place] [address] Jul, Otalgia 388.70 and Otitis me jonathon 382.9 [facility] [address] [facility] [id number] [address] [place] [address] Jul, [facility] [address] [facility] [id number] [address] [place] [address] Jul, [facility] [address] [place] [id number] [address] [place] [address] Jul, [facility] [address] [facility] [id number] [address] [place] [address] Jul, [facility] [address] [facility] [id number] [address] [place] [address] Jul, [facility] [address] [facility] [id number] [address] [place] [address] Jun, [facility] [address] [facility] [id number] [address] [place] [address] Jun, [facility] [address] [facility] [id number] [address] [place] [address] Jun, [facility] [address] [facility] [id number] [address] [place] [address] May, [facility] [address] [facility] [id number] [address] [place] [address] May, [facility] [address] [facility] [id number] [address] [place] [address] May, [facility] [address] [id number] [address] [place] [address], [place] [address] May, [facility] [address] [id number] [address] [place] [address], [place] [address] May, [facility] [address] [id number] [address] [place] [address], [place] [address] May, 2014 [facility] [address] [id number] [address] [place] [address], [place] [address] May, [facility] [address] [id number] [address] [place] [address], [place] [address] May, [facility] [address] [id number] [address] [place] [address], [place] [address] May, [facility] [address] [id number] [address] [place] [address], [place] [address] May, [facility] [address] [id number] [address] [place] [address], [place] [address] Apr, [facility] [address] [id number] [address] [place] [address], [place] [address] Apr, [facility] [address] [id number] [address] [place] [address], [place] [address] Apr, [facility] [address] [id number] [address] [place] [address], [place] [address] Apr, [facility] [address] [id number] [address] [place] [address], [place] [address] Apr, [facility] [address] [id number] [address] [place] [address], [place] [address] Apr, [facility] [address] [id number] [address] [place] [address], [place] [address] Apr, [facility] [address] [id number] [address] [place] [address], [place] [address] Apr, [facility] [address] [id number] [address] [place] [address], [place] [address] Apr, [facility] [address] [id number] [address] [place] [address], [place] [address] Apr, [facility] [address] [id number] [address] [place] [address], [place] [address] Apr, [facility] [address] [id number] [address] [place] [address], [place] [address] Apr, [facility] [address] [id number] [address] [place] [address], [place] [address] Apr, [facility] [address] [id number] [address] [place] [address], [place] [address] Apr, [facility] [address] [id number] [address] [place] [address], [place] [address] Apr, [facility] [address] [id number] [address] [place] [address], [place] [address] Mar, [facility] [address] [id number] [address] [place] [address], [place] [address] Mar, [facility] [address] [id number] [address] [place] [address], [place] [address] Mar, [facility] [address] [id number] [address] [place] [address], [place] [address] Mar, [facility] [address] [id number] [address] [place] [address], [place] [address] Feb, [facility] [address] [id number] [address] [place] [address], [place] [address] Feb, [facility] [address] [id number] [address] [place] [address], [place] [address] Feb, [facility] [address] [id number] [address] [place] [address], [place] [address] Feb, [facility] [address] [id number] [address] [place] [address], [place] [address] Jan, [facility] [address] [id number] [address] [place] [address], [place] [address] Jan, [facility] [address] [id number] [address] [place] [address], [place] [address] Jan, [facility] [address] [id number] [address] [place] [address], [place] [address] Jan, [facility] [address] [id number] [address] [place] [address], [place] [address] Jan, [facility] [address] [id number] [address] [place] [address], [place] [address] Jan, [facility] [address] [id number] [address] [place] [address], [place] [address] Jan, [facility] [address] [id number] [address] [place] [address], [place] [address] Jan, [facility] [address] [id number] [address] [place] [address], [place] [address] Dec, 2013 [facility] [address] [id number] [address] [place] [address], [place] [address] 29 Dec, 2013 [facility] [address] [id number] [address] [place] [address], [place] [address] Dec, [facility] [address] [id number] [address] [place] [address], [place] [address] Dec, [facility] [address] [id number] [address] [place] [address] Oct, [facility] [address] [id number] [address] [place] [address], [place] [address] Oct, [facility] [address] [id number] [address] [place] [address], [place] [address] Oct, [facility] [address] [id number] [address] [place] [address], [place] [address] Oct, [facility] [address] [id number] [address] [place] [address], [place] [address] Oct, [facility] [address] [id number] [address] [place] [address], [place] [address] Oct, [facility] [address] [id number] [address] [place] [address], [place] [address] Oct, [facility] [address] [id number] [address] [place] [address], [place] [address] Oct, [facility] [address] [id number] [address] [place] [address], [place] [address] Sep, [facility] [address] [id number] [address] [place] [address], [place] [address] Sep, [facility] [address] [id number] [address] [place] [address], [place] [address] Sep, [facility] [address] [id number] [address] [place] [address], [place] [address] Sep, [facility] [address] [id number] [address] [place] [address], [place] [address] Sep, [facility] [address] [id number] [address] [place] [address], [place] [address] Sep, [facility] [address] [id number] [address] [place] [address], [place] [address] Sep, [facility] [address] [id number] [address] [place] [address], [place] [address] Sep, [facility] [address] [id number] [address] [place] [address], [place] [address] Sep, [facility] [address] [id number] [address] [place] [address], [place] [address] Sep, [facility] [address] [id number] [address] [place] [address], [place] [address] August, [facility] [address] [id number] [address] [place] [address], [place] [address] August, [facility] [address] [id number] [facility] [address] August, [facility] [address] [id number] [facility] [address] August, [facility] [address] [id number] [facility] [address] August, [facility] [address] [id number] [address] [place] [address], [place] [address] August, [facility] [address] [id number] [address] [place] [address], [place] [address] August, [facility] [address] [id number] [address] [place] [address], [place] [address] August, [facility] [address] [id number] [address] [place] [address], [place] [address] August, [facility] [address] [id number] [address] [place] [address], [place] [address] August, [facility] [address] [id number] [address] [place] [address], [place] [address] August, [facility] [address] [id number] [address] [place] [address], [place] [address] August, [facility] [address] [id number] [address] [place] [address], [place] [address] Jul, [facility] [address] [id number] [address] [place] [address], [place] [address] Jul, [facility] [address] [id number] [address] [place] [address], [place] [address] Jul, [facility] [address] [id number] [address] [place] [address], [place] [address] Jul, [facility] [address] [id number] [address] [place] [address], [place] [address] Jul, [facility] [address] [id number] [address] [place] [address], [place] [address] Jul, [facility] [address] [id number] [facility] [address] Jun, [facility] [address] [id number] [facility] [address] Jun, [facility] [address] [id number] [facility] [address] May, [facility] [address] [id number] [address] [place] [address], [place] [address] May, [facility] [address] [id number] [address] [place] [address], [place] [address] Apr, [facility] [address] [id number] [address] [place] [address], [place] [address] Apr, [facility] [address] [id number] [address] [place] [address], [place] [address] Apr, [facility] [address] [id number] [address] [place] [address], [place] [address] Apr, [facility] [address] [id number] [address] [place] [address], [place] [address] Apr, [facility] [address] [id number] [address] [place] [address], [place] [address] Apr, [facility] [address] [id number] [address] [place] [address], [place] [address] Apr, [facility] [address] [id number] [address] [place] [address], [place] [address] Apr, [facility] [address] [id number] [address] [place] [address], [place] [address] Apr, [facility] [address] [id number] [address] [place] [address], [place] [address] Apr, [facility] [address] [id number] [address] [place] [address], [place] [address] Apr, [facility] [address] [id number] [address] [place] [address], [place] [address] Apr, [facility] [address] [id number] [address] [place] [address], [place] [address] Apr, [facility] [address] [id number] [address] [place] [address], [place] [address] Mar, [facility] [address] [id number] [address] [place] [address], [place] [address] Mar, [facility] [address] [id number] [address] [place] [address], [place] [address] Mar, [facility] [address] [id number] [address] [place] [address], [place] [address] Mar, [facility] [address] [id number] [address] [place] [address], [place] [address] Feb, [facility] [address] [id number] [address] [place] [address], [place] [address] Feb, [facility] [address] [id number] [address] [place] [address], [place] [address] Feb, [facility] [address] [id number] [address] [place] [address], [place] [address] Feb, [facility] [address] [id number] [address] [place] [address], [place] [address] 14 Jan, 2013 [facility] [address] [id number] [address] [place] [address], [place] [address] 14 Jan, 2013 [facility] [address] [id number] [address] [place] [address], [place] [address] 11 Jan, 2013 [facility] [address] [id number] [address] [place] [address], [place] [address] 11 Jan, 2013 [facility] [address] [id number] [address] [place] [address], [place] [address] 10 Jan, 2013 [facility] [address] [id number] [address] [place] [address], [place] [address] Jan, [facility] [address] [id number] [address] [place] [address], [place] [address] Jan, [facility] [address] [id number] [address] [place] [address], [place] [address] Jan, [facility] [address] [id number] [address] [place] [address], [place] [address] Jan, [facility] [address] [id number] [address] [place] [address], [place] [address] Dec, [facility] [address] [id number] [address] [place] [address], [place] [address] 16 Dec, 2012 [facility] [address] [id number] [address] [place] [address], [place] [address] Dec, [facility] [address] [id number] [address] [place] [address], [place] [address] Dec, [facility] [address] [id number] [address] [place] [address], [place] [address] Nov, [facility] [address] [id number] [address] [place] [address], [place] [address] Nov, [facility] [address] [id number] [address] [place] [address], [place] [address] Nov, [facility] [address] [id number] [address] [place] [address], [place] [address] Nov, [facility] [address] [id number] [address] [place] [address], [place] [address] Oct, [facility] [address] [id number] [address] [place] [address], [place] [address] Sep, [facility] [address] [id number] [address] [place] [address], [place] [address] August, [facility] [address] [id number] [address] [place] [address], [place] [address] August, [facility] [address] [id number] [address] [place] [address], [place] [address] August, [facility] [address] [id number] [address] [place] [address], [place] [address] August, [facility] [address] [id number] [address] [place] [address], [place] [address] August, [facility] [address] [id number] [address] [place] [address], [place] [address] August, [facility] [facility] [address] [id number] [address] [place] [address], [place] [address] August, [facility] [address] [id number] [address] [place] [address], [place] [address] August, [facility] [address] [id number] [address] [place] [address], [place] [address] August, [facility] [address] [id number] [address] [place] [address], [place] [address] August, [facility] [address] [id number] [address] [place] [address], [place] [address] August, [facility] [address] [id number] [address] [place] [address], [place] [address] August, [facility] [address] [id number] [address] [place] [address], [place] [address] Jul, [facility] [address] [id number] [address] [place] [address], [place] [address] Jul, [facility] [address] [id number] [address] [place] [address], [place] [address] 18 Jul, 2012 [facility] [address] [id number] [address] [place] [address], [place] [address] 15 Jul, 2012 [facility] [address] [id number] [address] [place] [address], [place] [address] Jul, [facility] [address] [id number] [address] [place] [address], [place] [address] 08 Jul, 2012 [facility] [address] [id number] [address] [place] [address], [place] [address] Jul, [facility] [address] [id number] [address] [place] [address], [place] [address] Jul, [facility] [address] [id number] [address] [place] [address], [place] [address] Jul, [facility] [address] [id number] [address] [place] [address], [place] [address] Jul, [facility] [address] [id number] [address] [place] [address], [place] [address] Jul, [facility] [address] [id number] [address] [place] [address], [place] [address] Jun, [facility] [address] [id number] [address] [place] [address], [place] [address] Jun, [facility] [address] [id number] [address] [place] [address], [place] [address] Jun, [facility] [address] [id number] [address] [place] [address], [place] [address] Jun, [facility] [address] [id number] [address] [place] [address], [place] [address] May, [facility] [address] [id number] [address] [place] [address], [place] [address] 14 May, 2012 [facility] [address] [id number] [address] [place] [address], [place] [address] 05 May, 2012 [facility] [address] [id number] [address] [place] [address], [place] [address] May, [facility] [address] [id number] [address] [place] [address], [place] [address] May, [facility] [address] [id number] [address] [place] [address], [place] [address] May, [facility] [address] [id number] [address] [place] [address], [place] [address] 31 Apr, 2012 [facility] [address] [id number] [address] [place] [address], [place] [address] 31 Apr, 2012 [facility] [address] [id number] [address] [place] [address], [place] [address] 30 Apr, 2012 [facility] [address] [id number] [address] [place] [address], [place] [address] 28 Apr, 2012 [facility] [address] [id number] [address] [place] [address], [place] [address] 15 Mar, 2012 [facility] [address] [id number] [address] [place] [address], [place] [address] 14 Mar, 2012 [facility] [address] [id number] [address] [place] [address], [place] [address] 14 Mar, 2012 [facility] [address] [id number] [address] [place] [address], [place] [address] 14 Mar, 2012 [facility] [address] [id number] [address] [place] [address], [place] [address] 14 Mar, 2012 [facility] [address] [id number] [address] [place] [address], [place] [address] 06 Mar, 2012 [facility] [address] [id number] [address] [place] [address], [place] [address] 06 Mar, 2012 [facility] [address] [id number] [address] [place] [address], [place] [address] Feb, [facility] [address] [id number] [address] [place] [address], [place] [address] Feb, [facility] [address] [id number] [address] [place] [address], [place] [address] Feb, [facility] [address] [id number] [address] [place] [address], [place] [address] Feb, [facility] [address] [id number] [address] [place] [address], [place] [address] Jan, [facility] [address] [id number] [address] [place] [address], [place] [address] Jan, [facility] [address] [id number] [address] [place] [address], [place] [address] Jan, [facility] [address] [id number] [address] [place] [address], [place] [address] Jan, [facility] [address] [id number] [address] [place] [address], [place] [address] Jan, [facility] [address] [id number] [address] [place] [address], [place] [address] Jan, [facility] [address] [id number] [address] [place] [address], [place] [address] Dec, [facility] [address] [id number] [address] [place] [address], [place] [address] Dec, [facility] [address] [id number] [address] [place] [address], [place] [address] Nov, [facility] [address] [id number] [address] [place] [address], [place] [address] Sep, [facility] [address] [id number] [address] [place] [address], [place] [address] August, [facility] [address] [id number] [address] [place] [address], [place] [address] August, [facility] [address] [id number] [address] [place] [address], [place] [address] August, [facility] [address] [id number] [address] [place] [address], [place] [address] August, [facility] [address] [id number] [address] [place] [address], [place] [address] August, [facility] [address] [id number] [address] [place] [address], [place] [address] Jun, [facility] [address] [id number] [address] [place] [address], [place] [address] Jun, [facility] [address] [id number] [address] [place] [address], [place] [address] Apr, [facility] [address] [id number] [address] [place] [address], [place] [address] Apr, [facility] [address] [id number] [address] [place] [address], [place] [address] Mar, [facility] [address] [id number] [address] [place] [address], [place] [address] Feb, [facility] [address] [id number] [address] [place] [address], [place] [address] Feb, [facility] [address] [id number] [address] [place] [address], [place] [address] Feb, [facility] [address] [id number] [address] [place] [address], [place] [address] 17 Jan, 2011 [facility] [address] [id number] [address] [place] [address] 15 Jan, 2011 [facility] [address] [id number] [address] [place] [address], [place] [address] 15 Jan, 2011 [facility] [address] [id number] [address] [place] [address] 14 Jan, 2011 [facility] [address] [id number] [address] [place] [address] 15 May, 2010 [facility] [address] [id number] [address] [place] [address] Mar, [facility] [address] [id number] [address] [place] [address], [place] [address] Oct, [facility] [address] [id number] [address] [place] [address] Sep, [facility] [address] [id number] [address] [place] [address] Mar, [facility] [address] [id number] [address] [place] [address] Jan, [facility] [address] [facility] [id number] [address] [place] [address] Jan, [facility] [address] [facility] [id number] [address] [place] [address] May, IMMUNIZATIONS No Known Immunizations SOCIAL HISTORY [...]
--- OUTSIDE RECORDS SUMMARY | 2019-11-23 05:50 | XMS REPORT ---
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 Name Role Phone PACHECO Fuchs Unavailable PROBLEMS Type Condition ICD9-CM Code PFB29-ON Code Onset Dates Condition S tatus SNOMED Code Problem Hematuria, unspecified type R31.9 Ac tive 66145470 Problem Abnormal renal ultrasound R93.429 Acti ve [id number] Problem Anxiety F41.9 Active 46230895 Problem Hypokalemia E87.6 Active 69809961 Problem Abnormal glucose R73.09 Active 102 291159 Problem Chronic pain due to trauma G89.21 Act juanis [id number] Problem Neuroforaminal stenosis of spine M99.89 Active 867692140031 Problem Neck pain M54.2 Active 12456908 Problem Essential hypertension I10 Active 97250811 Problem Mixed hyperlipidemia E78.2 Active 28695846 ALLERGIES No Information ENCOUNTERS Encounter Location Date Diagnosis [place] [address] [facility] [id number] [address] [place] [phone] Dec, Neuroforaminal stenosis of s pine M99.89 [place] [address] [facility] [id number] [address] [place] [phone] Dec, Neuroforaminal stenosis of s pine M99.89 [facility] [address] [facility] [id number] [address] [place] [phone] Nov, [place] [address] [facility] [id number] [address] [place] [phone] Nov, Neuroforaminal stenosis of s pine M99.89 [facility] [address] [facility] [id number] [address] [place] [phone] Nov, Acute non-recurrent maxillar y sinusitis J01.00 [facility] [address] [id number] [address] [place] [phone] 30 Oct, 2018 Hypokalemia E87.6 [facility] [address] [id number] [address] [place] [phone] Oct, Wasp sting, undetermined int ent, initial encounter T63.464A and Cellulitis of left lower extremity L03.116 [place] [address] [id number] [address] [place] [phone] Oct, Neuroforaminal stenosis of s pine M99.89 [place] [address] [id number] [address] [place] [phone] Sep, [place] [address] [facility] [id number] [address] [place] [phone] Sep, [place] [address] [facility] [id number] [address] [place] [phone] Sep, Routine screening for STI (s exually transmitted infection) Z11.3 [place] [address] [facility] [id number] [address] [place] [phone] 14 Sep, 2018 Routine screening for STI (s exually transmitted infection) Z11.3 ; Well woman exam with routine gynecological exam Z01.419 and Breast cancer screening Z12.39 [place] [address] [facility] [id number] [address] [place] [phone] Sep, Neuroforaminal stenosis of s pine M99.89 [facility] [address] [id number] [address] [place] [phone] August, Neuroforaminal stenosis of s pine M99.89 [place] [address] [facility] [id number] [address] [place] [phone] August, Neuroforaminal stenosis of s pine M99.89 ; Chronic pain due to trauma G89.21 and Mixed hyperlipidemia E78.2 [place] [address] [facility] [id number] [address] [place] [phone] Jul, Viral upper respiratory illn ess J06.9 and Acute non-recurrent frontal sinusitis J01.10 [facility] [address] [id number] [address] [place] [phone] Jul, Congestion of nasal sinus R0 9.81 [facility] [address] [id number] [address] [place] [phone] Jul, Neuroforaminal stenosis of s pine M99.89 and Essential hypertension I10 [facility] [address] [id number] [address] [place] [phone] May, Neuroforaminal stenosis of s pine M99.89 [facility] [address] [id number] [address] [place] [phone] May, [facility] [address] [id number] [address] [place] [phone] May, Congestion of nasal sinus R0 9.81 [facility] [address] [id number] [address] [place] [phone] May, [facility] [address] [id number] [address] [place] [phone] Apr, Neuroforaminal stenosis of s pine M99.89 [facility] [address] [id number] [address] [place] [phone] Apr, Neuroforaminal stenosis of s pine M99.89 and Chronic pain due to trauma G89.21 [facility] [address] [id number] [address] [place] [address] Mar, UTI (urinary tract infection ) N39.0 [facility] [address] [facility] [id number] [address] [place] [phone] Mar, Vertigo R42 [facility] [address] [facility] [id number] [address] [place] [phone] Mar, Neuroforaminal stenosis of s pine M99.89 [facility] [address] [place] [id number] [address] [place] [phone] Feb, Extensor tendon disruption M 67.89 [facility] [address] [place] [id number] [address] [place] [phone] Feb, Neuroforaminal stenosis of s pine M99.89 and High risk medication use Z79.899 [facility] [address] [facility] [id number] [address] [place] [phone] Jan, Hypokalemia E87.6 [facility] [address] [facility] [id number] [address] [place] [phone] Jan, Flank pain R10.9 and Acute r ight-sided low back pain without sciatica M54.5 [place] [address] [place] [id number] [address] [place] [phone] Jan, Hypokalemia E87.6 [place] [address] [place] [id number] [address] [place] [phone] Jan, [place] [address] [place] [id number] [address] [place] [phone] Jan, URI, acute J06.9 [place] [address] [place] [id number] [address] [place] [phone] 05 Jan, 2018 Neuroforaminal stenosis of s pine M99.89 [place] [address] [place] [id number] [address] [place] [phone] 13 Dec, 2017 Lateral epicondylitis, right elbow M77.11 [place] [address] [place] [id number] [address] [place] [phone] 11 Dec, 2017 Allergic rhinitis due to monica rosalina, unspecified seasonality J30.1 and Allergic conjunctivitis of both eyes H10.13 [facility] [address] [place] [id number] [address] [place] [phone] 10 Dec, 2017 Neuroforaminal stenosis of s pine M99.89 [facility] [address] [place] [id number] [address] [place] [address] Dec, Mixed hyperlipidemia E78.2 [place] [address] [place] [id number] [address] [place] [address] Dec, Abnormal glucose R73.09 ; Ab normal renal ultrasound R93.429 ; Dysuria R30.0 ; Cystitis without hematuria N30.90 ; Hypokalemia E87.6 ; Mixed hyperlipidemia E78.2 and Hematuria, unspecified type R31.9 [place] [address] [place] [id number] [address] [place] [phone] Nov, Hypokalemia E87.6 ; Mixed hy perlipidemia E78.2 and Hematuria, unspecified type R31.9 [place] [address] [place] [id number] [place] [phone] Nov, [place] [address] [place] [id number] [place] [address] Nov, Hypokalemia E87.6 [place] [address] [place] [id number] [address] [place] [address] Nov, [place] [address] [address] Nov, Abnormal renal ultrasound R9 3.429 [place] [address] [place] [id number] [place] [address] Nov, Abnormal renal ultrasound R9 3.429 [place] [address] [place] [id number] [address] [place] [address] Nov, Hematuria, unspecified type R31.9 and Neuroforaminal stenosis of spine M99.89 [place] [address] [place] [id number] [address] [place] [address] Nov, Dysuria R30.0 [place] [address] [place] [id number] [address] [place] [phone] Oct, Lateral epicondylitis, right elbow M77.11 [place] [address] [place] [id number] [place] [address] Oct, Neuroforaminal stenosis of s pine M99.89 ; Visit for TB skin test Z11.1 and Essential hypertension I10 [place] [address] [id number] [address] [place] [phone] 16 Oct, 2017 [place] [address] [id number] [address] [place] [address] Oct, Neuroforaminal stenosis of s pine M99.89 [place] [address] [id number] [address] [place] [phone] 10 Oct, 2017 Visit for TB skin test Z11.1 [place] [address] [id number] [address] [place] [phone] 05 Oct, 2017 Cystitis without hematuria N 30.90 [place] [address] [id number] [address] [place] [phone] 28 Sep, 2017 Screening breast examination Z12.39 [place] [address] [id number] [address] [place] [phone] 26 Sep, 2017 Dysuria R30.0 and Cystitis w ithout hematuria N30.90 [place] [address] [id number] [address] [place] [phone] 14 Sep, 2017 Essential hypertension I10 a nd Neuroforaminal stenosis of spine M99.89 [place] [address] [id number] [address] [place] [address] Sep, Abnormal glucose R73.09 [place] [address] [id number] [address] [place] [phone] August, Lateral epicondylitis, right elbow M77.11 [place] [address] [id number] [address] [place] [phone] August, Screen for STD (sexually tra nsmitted disease) Z11.3 [place] [address] [id number] [address] [place] [address] August, Neuroforaminal stenosis of s pine M99.89 ; Mixed hyperlipidemia E78.2 ; Elevated fasting glucose R73.01 ; Screening mammogram, encounter for Z12.31 and Encounter for well woman exam without gynecological exam Z00.00 [facility] [address] [id number] [address] [place] [address] August, Neuroforaminal stenosis of s jose M99.89 [facility] [address] [id number] [address] [place] [phone] August, Essential hypertension I10 ; Hypokalemia E87.6 and Mixed hyperlipidemia E78.2 [facility] [address] [id number] [address] [place] [phone] Jul, [place] [address] [id number] [address] [place] [address] Jul, Neuroforaminal stenosis of s pine M99.89 [place] [address] [id number] [address] [place] [address] Jul, Lateral epicondylitis, right elbow M77.11 [facility] [address] [id number] [address] [place] [address] Jul, [facility] [address] [id number] [address] [place] [address] Jun, High ankle sprain of right l ower extremity, initial encounter S93.431A [place] [address] [id number] [address] [place] [address] Jun, Essential hypertension I10 [facility] [address] [id number] [address] [place] [phone] Jun, [facility] [address] [id number] [address] [place] [address] Jun, [facility] [address] [id number] [address] [place] [address] Jun, Neuroforaminal stenosis of s pine M99.89 [facility] [address] [id number] [address] [place] [address] Jun, Pain of right upper extremit y M79.601 and Essential hypertension I10 [place] [address] [address] Jun, [place] [address] [address] Jun, Dysuria R30.0 ; Acute cystit is with hematuria N30.01 and Screen for STD (sexually transmitted disease) Z11.3 [place] [address] [address] May, Chronic pain due to trauma G 89.21 [place] [address] [address] May, Essential hypertension I10 [place] [address] [address] May, Neuroforaminal stenosis of s pine M99.89 [place] [address] [address] Apr, Allergic reaction, initial e ncounter T78.40XA [place] [address] [address] Apr, Low back pain, unspecified b ack pain laterality, unspecified chronicity, with sciatica presence unspecified M54.5 ; Acute cystitis with hematuria N30.01 ; Neuroforaminal stenosis of spine M99.89 ; Bilateral acute serous otitis media, recurrence not specified H65.03 ; Mixed hyperlipidemia E78.2 ; Essential hypertension I10 ; Immunization counseling Z71.89 and Encounter for immunization Z23 [place] [address] [address] Apr, Neck pain M54.2 [place] [address] [place] [id number] [address] [place] [address] Mar, Neuroforaminal stenosis of s pine M99.89 [place] [address] [id number] [address] [place] [address] Mar, Pharyngitis due to other org anism J02.8 [facility] [address] [id number] [address] [place] [phone] Feb, Neuroforaminal stenosis of s pine M99.89 [facility] [address] [id number] [address] [place] [phone] 08 Feb, 2017 UTI (urinary tract infection ) N39.0 [facility] [address] [id number] [address] [place] [phone] 07 Feb, 2017 Recent urinary tract infecti on Z87.440 ; Neuroforaminal stenosis of spine M99.89 ; Neck pain M54.2 ; Chronic pain due to trauma G89.21 and Recurrent UTI N39.0 [place] [address] [id number] [address] [place] [phone] Feb, [place] [address] [id number] [address] [place] [phone] Jan, Neuroforaminal stenosis of s pine M99.89 [place] [address] [id number] [address] [place] [address] Dec, Neuroforaminal stenosis of s pine M99.89 [facility] [address] [id number] [address] [place] [phone] 18 Dec, 2016 Acute seasonal allergic rhin itis due to pollen J30.1 [facility] [address] [id number] [address] [place] [phone] Dec, [facility] [address] [id number] [address] [place] [address] Dec, Acute seasonal allergic rhin itis, unspecified trigger J30.2 ; Allergic conjunctivitis of both eyes H10.13 and Dysfunction of both eustachian tubes H69.83 [facility] [address] [id number] [address] [place] [phone] Dec, [facility] [address] [id number] [address] [place] [phone] Dec, Nevus D22.9 [facility] [address] [id number] [address] [place] [address] Nov, Chronic pain due to trauma G 89.21 and Neuroforaminal stenosis of spine M99.89 [facility] [address] [id number] [address] [place] [address] Nov, Neuroforaminal stenosis of s pine M99.89 ; Essential hypertension I10 ; Mixed hyperlipidemia E78.2 ; Hypokalemia E87.6 ; Neck pain M54.2 and Nevus D22.9 [facility] [address] [id number] [address] [place] [id number] Oct, Neuroforaminal stenosis of s pine M99.89 [facility] [address] [id number] [address] [place] [address] Sep, Neuroforaminal stenosis of s pine M99.89 [facility] [address] [id number] [address] [place] [address] Sep, [facility] [address] [id number] [address] [place] [address] August, [facility] [address] [id number] [address] [place] [phone] August, Neck pain M54.2 and Neurofor aminal stenosis of spine M99.89 [facility] [address] [id number] [address] [place] [address] August, Routine gynecological examin ation Z01.419 and Screening breast examination Z12.39 [facility] [address] [id number] [address] [place] [phone] Jul, [facility] [address] [id number] [address] [place] [address] Jul, [facility] [address] [id number] [address] [place] [phone] Jul, Neuroforaminal stenosis of s pine M99.89 [facility] [address] [id number] [address] [place] [address] Jul, [facility] [address] [facility] [id number] [address] [place] [address] Jul, Neuroforaminal stenosis of l umbar 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 [facility] [address] [id number] [address] [place] [phone] Jul, [facility] [address] [id number] [address] [place] [phone] Jul, [facility] [address] [facility] [id number] [address] [place] [id number] Jun, Neuroforaminal stenosis of s pine M99.89 [facility] [address] [facility] [id number] [address] [place] [phone] Jun, Uterine leiomyoma, unspecifi ed location D25.9 and Allergic reaction caused by a drug, initial encounter T78.40XA [facility] [address] [facility] [id number] [address] [place] [phone] Jun, [facility] [address] [facility] [id number] [address] [place] [phone] May, UTI symptoms R39.9 and Pain of right sacroiliac joint M53.3 [facility] [address] [facility] [id number] [address] [place] [address] May, Neuroforaminal stenosis of s pine M99.89 [facility] [address] [facility] [id number] [address] [place] [address] May, [facility] [address] [facility] [id number] [address] [place] [phone] May, Acute mucoid otitis media of left ear H65.112 and Acute non- recurrent maxillary sinusitis J01.00 [facility] [address] [id number] [address] [place] [address] May, Acute bacterial conjunctivit is of both eyes H10.33 ; Left arm pain M79.602 and Hypokalemia E87.6 [facility] [address] [id number] [address] [place] [phone] Apr, [facility] [address] [facility] [id number] [address] [place] [phone] Apr, Neuroforaminal stenosis of s pine M99.89 ; Neck pain M54.2 ; Chronic pain due to trauma G89.21 ; Mixed hyperlipidemia E78.2 ; Essential hypertension I10 and Hypokalemia E87.6 [place] [address] [id number] [address] [place] [address] Mar, Oral candidiasis B37.0 ; Nathaniel roforaminal stenosis of spine M99.89 ; Neck pain M54.2 and Chronic pain due to trauma G89.21 [place] [address] [id number] [address] [place] [address] Feb, [place] [address] [id number] [address] [place] [address] Feb, [place] [address] [facility] [id number] [address] [place] [phone] Feb, UTI (urinary tract infection ) N39.0 [facility] [address] [id number] [address] [place] [phone] Feb, Dysuria R30.0 [facility] [address] [id number] [address] [place] [phone] Feb, Dysuria R30.0 [facility] [address] [facility] [id number] [address] [place] [id number] Feb, Neuroforaminal stenosis of s pine M99.89 ; Neck pain M54.2 ; Essential hypertension I10 ; Chronic pain due to trauma G89.21 ; Dysuria R30.0 ; Abnormal MRI, shoulder R93.8 and Acute cystitis without hematuria N30.00 [facility] [address] [id number] [address] [place] [id number] Jan, [facility] [address] [id number] [address] [place] [phone] Jan, [facility] [address] [id number] [address] [place] [phone] Jan, [facility] [address] [id number] [address] [place] [phone] Jan, Abnormal MRI R93.8 [facility] [address] [id number] [address] [place] [phone] 29 Dec, 2015 [facility] [address] [id number] [address] [place] [address] 15 Dec, 2015 Acute pain of left shoulder M25.512 [facility] [address] [id number] [address] [place] [phone] 09 Dec, 2015 [facility] [address] [id number] [address] [place] [phone] 08 Dec, 2015 [facility] [address] [id number] [address] [place] [address] 07 Dec, 2015 Acute pain of left shoulder M25.512 [facility] [address] [id number] [address] [place] [phone] Nov, [facility] [address] [id number] [address] [place] [phone] Nov, Neuroforaminal stenosis of s pine M99.89 ; Neck pain M54.2 ; Abnormal mammogram R92.8 ; Essential hypertension I10 and Chronic pain due to trauma G89.21 [facility] [address] [id number] [address] [place] [id number] Nov, [facility] [address] [id number] [address] [place] [phone] Oct, Acute stress disorder F43.0 [facility] [address] [id number] [address] [place] [id number] Oct, [facility] [address] [id number] [address] [place] [id number] Oct, [facility] [address] [id number] [address] [place] [phone] Oct, [facility] [address] [id number] [address] [place] [id number] Sep, [facility] [address] [id number] [address] [place] [id number] August, [facility] [address] [id number] [address] [place] [id number] Jul, Neuroforaminal stenosis of s pine M99.89 ; Neck pain M54.2 ; Abnormal mammogram R92.8 and Essential hypertension I10 [facility] [address] [id number] [address] [place] [id number] Jul, [facility] [address] [id number] [address] [place] [id number] Jul, [facility] [address] [id number] [address] [place] [id number] Jul, Abnormal mammogram R92.8 [facility] [address] [id number] [address] [place] [id number] Jul, [facility] [address] [id number] [address] [place] [id number] Jul, UTI (urinary tract infection ) N39.0 [facility] [address] [id number] [address] [place] [id number] Jul, Dysuria R30.0 [facility] [address] [id number] [address] [place] [phone] Jun, [facility] [address] [id number] [address] [place] [id number] 31 Jun, 2015 [place] [address] [address] [facility] [id number] [address] [place] [id number] 28 Jun, 2015 Hypokalemia E87.6 and Hematu martina R31.9 [place] [address] [address] [facility] [id number] [address] [place] [phone] 28 Jun, 2015 Hypokalemia E87.6 [place] [address] [place] [id number] [address] [place] [phone] Jun, [place] [address] [id number] Jun, Hypokalemia E87.6 [place] [address] [id number] Jun, Hypokalemia E87.6 [place] [address] [id number] 15 Jun, 2015 Neuroforaminal stenosis of s pine M99.89 ; Hypokalemia E87.6 ; Neck pain M54.2 ; Essential hypertension I10 ; Mixed hyperlipidemia E78.2 and Screening breast examination Z12.39 [place] [address] [place] [id number] [address] [place] [phone] 08 Jun, 2015 Dysuria R30.0 ; UTI (urinary tract infection) N39.0 and Hematuria R31.9 [place] [address] [place] [id number] [address] [place] [phone] May, [place] [address] [place] [id number] [address] [place] [id number] 18 May, 2015 High risk sexual behavior Z7 2.51 ; Hypokalemia E87.6 ; Neuroforaminal stenosis of spine M99.89 ; Neck pain M54.2 ; Essential hypertension I10 ; Mixed hyperlipidemia E78.2 ; STD exposure Z20.2 and Concern about STD in female without diagnosis Z71.1 [place] [address] [id number] 16 May, 2015 Neuroforaminal stenosis of s pine M99.89 ; Neck pain M54.2 ; Hypokalemia E87.6 ; Essential hypertension I10 and Mixed hyperlipidemia E78.2 [facility] [address] [place] [id number] [address] [place] [id number] 11 May, 2015 [facility] [address] [place] [id number] [address] [place] [id number] 08 May, 2015 High risk sexual behavior Z7 2.51 ; STD exposure Z20.2 and Concern about STD in female without diagnosis Z71.1 [facility] [address] [id number] 05 May, 2015 [facility] [address] [id number] Apr, Neuroforaminal stenosis of s jose M99.89 ; Mixed hyperlipidemia E78.2 ; Essential hypertension I10 and Hypokalemia E87.6 [facility] [address] [place] [id number] [address] [place] [phone] Mar, [facility] [address] [address] Mar, Hypokalemia E87.6 [facility] [address] [address] Mar, Neuroforaminal stenosis of s pine M99.89 ; Mixed hyperlipidemia E78.2 ; Neck pain M54.2 ; Essential hypertension I10 ; Abnormal fasting glucose R73.09 ; Hypokalemia E87.6 and Constipation K59.00 [facility] [address] [id number] Feb, Neuroforaminal stenosis of s pine M99.89 ; Mixed hyperlipidemia E78.2 ; Neck pain M54.2 ; Essential hypertension I10 ; Abnormal fasting glucose R73.09 ; Hypokalemia E87.6 and Constipation K59.00 [facility] [address] [place] [id number] [address] [place] [phone] Feb, Elevated fasting blood sugar R73.01 [place] [address] [facility] [id number] [address] [place] [phone] Feb, Elevated fasting blood sugar R73.01 [place] [address] [facility] [id number] [address] [place] [phone] Feb, Hair loss L65.9 [facility] [address] [facility] [id number] [address] [place] [phone] Feb, Sinusitis J32.9 ; Essential hypertension I10 and Hair loss L65.9 [place] [address] [facility] [id number] [address] [place] [phone] Jan, [place] [address] [facility] [id number] [address] [place] [phone] Jan, Essential hypertension I10 ; Neuroforaminal stenosis of spine M99.89 ; Neck pain M54.2 ; Mixed hyperlipidemia E78.2 and Anxiety F41.9 [place] [address] [facility] [id number] [address] [place] [phone] Jan, [place] [address] [place] [id number] [address] [place] [address] Jan, Mixed hyperlipidemia E78.2 ; Essential (primary) hypertension I10 ; Strain of muscle, fascia and tendon at neck level, subsequent encounter S16.1XXD and Tension-type headache, unspecified, not intractable G44.209 [place] [address] [id number] [address] [place] [phone] Dec, Lumbar back pain 724.2 and N euroforaminal stenosis of spine 724.00 [place] [address] [facility] [id number] [address] [place] [phone] Nov, [place] [address] [facility] [id number] [address] [place] [id number] Nov, Lumbar back pain 724.2 and N euroforaminal stenosis of spine 724.00 [facility] [address] [id number] [address] [place] [phone] Nov, Edema 782.3 ; Lumbar back pa in 724.2 ; Essential hypertension, benign 401.1 ; Hyperlipemia 272.4 ; Neuroforaminal stenosis of spine 724.00 and Post-concussion headache 339.20 [facility] [address] [id number] [address] [place] [phone] Nov, [facility] [address] [id number] [address] [place] [phone] Nov, [facility] [address] [id number] [address] [place] [phone] Oct, Essential hypertension, sheridan gn 401.1 [facility] [address] [id number] [address] [place] [phone] Oct, Edema 782.3 ; Lumbar back pa in 724.2 ; Essential hypertension, benign 401.1 ; Hyperlipemia 272.4 ; Neuroforaminal stenosis of spine 724.00 and Post-concussion headache 339.20 [place] [address] [id number] [address] [place] [phone] Oct, [facility] [address] [id number] [address] [place] [phone] Oct, Edema 782.3 [facility] [address] [id number] [address] [place] [phone] Oct, Lumbar back pain 724.2 [facility] [address] [id number] [address] [place] [phone] Oct, Cervicalgia 723.1 ; Lumbar b ack pain 724.2 and High risk medication use V58.69 [facility] [address] [id number] [address] [place] [phone] Sep, [facility] [address] [id number] [address] [place] [id number] Sep, Lumbar strain 847.2 [facility] [address] [id number] [address] [place] [phone] August, Edema 782.3 and Eustachian t ube dysfunction 381.81 [facility] [address] [id number] [address] [place] [phone] August, [facility] [address] [id number] [address] [place] [address] August, Eustachian tube dysfunction 381.81 [facility] [address] [id number] [address] [place] [id number] Jul, Otalgia 388.70 and Otitis me jonathon 382.9 [facility] [address] [id number] [address] [place] [phone] Jul, [facility] [address] [id number] [address] [place] [id number] Jul, [facility] [address] [id number] [address] [place] [id number] Jul, [facility] [address] [id number] [address] [place] [id number] Jul, [facility] [address] [id number] [address] [place] [phone] Jul, [facility] [address] [id number] [address] [place] [id number] Jun, [facility] [address] [id number] [address] [place] [phone] Jun, [facility] [address] [id number] [address] [place] [phone] Jun, [facility] [address] [id number] [address] [place] [id number] May, [facility] [address] [id number] [address] [place] [id number] May, [facility] [address] [id number] [address] [place] [address], [place] [address] May, 2014 [facility] [address] [id number] [address] [place] [address], [place] [address] May, 2014 [facility] [address] [id number] [address] [place] [address], [place] [address] May, 2014 [facility] [address] [id number] [address] [place] [address], [place] [address] May, 2014 [facility] [address] [id number] [address] [place] [address], [place] [address] May, [facility] [address] [id number] [address] [place] [address], [place] [address] May, [facility] [address] [id number] [address] [place] [address], [place] [address] May, [facility] [address] [id number] [address] [place] [address], [place] [address] May, [facility] [address] [id number] [address] [place] [address], [place] [address] Apr, [facility] [address] [id number] [address] [place] [address], [place] [address] Apr, [facility] [address] [id number] [address] [place] [address], [place] [address] Apr, [facility] [address] [id number] [address] [place] [address], [place] [address] Apr, [facility] [address] [id number] [address] [place] [address], [place] [address] Apr, [facility] [address] [id number] [address] [place] [address], [place] [address] Apr, [facility] [address] [id number] [address] [place] [address], [place] [address] Apr, [facility] [address] [id number] [address] [place] [address], [place] [id number] Apr, [facility] [address] [id number] [address] [place] [address], [place] [address] Apr, [facility] [address] [id number] [address] [place] [address], [place] [address] Apr, [facility] [address] [id number] [address] [place] [address], [place] [address] Apr, [facility] [address] [id number] [address] [place] [address], [place] [id number] Apr, [facility] [address] [id number] [address] [place] [address], [place] [address] Apr, [facility] [address] [id number] [address] [place] [address], [place] [id number] Apr, [facility] [address] [id number] [address] [place] [address], [place] [address] Apr, [facility] [address] [id number] [address] [place] [address], [place] [address] Mar, [facility] [address] [id number] [address] [place] [address], [place] [address] Mar, [facility] [address] [id number] [address] [place] [address], [place] [address] Mar, [facility] [address] [id number] [address] [place] [address], [place] [address] Mar, [facility] [address] [id number] [address] [place] [address], [place] [id number] Feb, [facility] [address] [id number] [address] [place] [address], [place] [address] Feb, [facility] [address] [id number] [address] [place] [address], [place] [address] Feb, [facility] [address] [id number] [address] [place] [address], [place] [address] Feb, [facility] [address] [id number] [address] [place] [address], [place] [id number] Jan, 2013 [facility] [address] [id number] [address] [place] [address], [place] [address] Jan, [facility] [address] [id number] [address] [place] [address], [place] [address] Jan, [facility] [address] [id number] [address] [place] [address], [place] [address] Jan, [facility] [address] [id number] [address] [place] [address], [place] [address] Jan, [facility] [address] [id number] [address] [place] [address], [place] [address] Jan, [facility] [address] [id number] [address] [place] [address], [place] [address] Jan, [facility] [address] [id number] [address] [place] [address], [place] [address] Jan, [facility] [address] [id number] [address] [place] [address], [place] [address] Dec, [facility] [address] [id number] [address] [place] [address], [place] [address] 29 Dec, 2013 [facility] [address] [id number] [address] [place] [address], [place] [id number] Dec, [facility] [address] [id number] [address] [place] [address], [place] [address] Dec, 2013 [facility] [address] [id number] [address] [place] [address], [place] [address] Oct, [facility] [address] [id number] [address] [place] [address], [place] [address] Oct, [facility] [address] [id number] [address] [place] [address], [place] [address] Oct, [facility] [address] [id number] [address] [place] [address], [place] [address] Oct, [facility] [address] [id number] [facility] [place] [address] Oct, [facility] [address] [id number] [address] [place] [address], [place] [address] Oct, [facility] [address] [id number] [address] [place] [address], [place] [address] Oct, [facility] [address] [id number] [address] [place] [address], [place] [address] Oct, [facility] [address] [id number] [address] [place] [address], [place] [address] Sep, [facility] [address] [id number] [address] [place] [address], [place] [address] Sep, [facility] [address] [id number] [address] [place] [address], [place] [address] Sep, [facility] [address] [id number] [address] [place] [address], [place] [address] Sep, [facility] [address] [id number] [address] [place] [address], [place] [address] Sep, [facility] [address] [id number] [address] [place] [address], [place] [address] Sep, [facility] [address] [id number] [address] [place] [address], [place] [address] Sep, [facility] [address] [id number] [address] [place] [address], [place] [address] Sep, [facility] [address] [id number] [address] [place] [address], [place] [address] Sep, [facility] [address] [id number] [address] [place] [address], [place] [address] Sep, [facility] [address] [id number] [address] [place] [address], [place] [address] August, [facility] [address] [id number] [facility] [place] [address] August, [facility] [place] [address] [id number] [facility] [place] [address] August, [facility] [address] [id number] [address] [place] [address], [place] [address] August, [facility] [address] [id number] [address] [place] [address], [place] [address] August, [facility] [address] [id number] [address] [place] [address], [place] [address] August, [facility] [address] [id number] [address] [place] [address], [place] [address] August, [facility] [address] [id number] [address] [place] [address], [place] [address] August, [facility] [address] [id number] [address] [place] [address], [place] [address] August, [facility] [address] [id number] [address] [place] [address], [place] [address] August, [facility] [address] [id number] [address] [place] [address], [place] [address] August, [facility] [address] [id number] [address] [place] [address], [place] [address] August, [facility] [address] [id number] [address] [place] [address], [place] [address] Jul, [facility] [address] [id number] [address] [place] [address], [place] [address] Jul, [facility] [address] [id number] [address] [place] [address], [place] [address] Jul, [facility] [address] [id number] [address] [place] [address], [place] [address] Jul, [facility] [address] [id number] [address] [place] [address], [place] [address] Jul, [facility] [address] [id number] [facility] [place] [address] Jul, [facility] [address] [id number] [facility] [place] [address] Jun, [facility] [address] [id number] [facility] [place] [address] Jun, [facility] [address] [id number] [address] [place] [address], [place] [address] May, [facility] [address] [id number] [address] [place] [address], [place] [address] May, [facility] [address] [id number] [address] [place] [address], [place] [address] Apr, [facility] [address] [id number] [address] [place] [address], [place] [address] Apr, [facility] [address] [id number] [address] [place] [address], [place] [address] Apr, [facility] [address] [id number] [address] [place] [address], [place] [address] Apr, [facility] [address] [id number] [address] [place] [address], [place] [address] Apr, [facility] [address] [id number] [address] [place] [address], [place] [address] Apr, [facility] [address] [id number] [address] [place] [address], [place] [address] Apr, [facility] [address] [id number] [address] [place] [address], [place] [address] Apr, [facility] [address] [id number] [address] [place] [address], [place] [address] Apr, [facility] [address] [id number] [address] [place] [address], [place] [address] Apr, [facility] [address] [id number] [address] [place] [address], [place] [address] Apr, [facility] [address] [id number] [address] [place] [address], [place] [address] Apr, [facility] [address] [id number] [address] [place] [address], [place] [address] Apr, [facility] [address] [id number] [address] [place] [address], [place] [id number] Mar, [facility] [address] [id number] [address] [place] [address], [place] [id number] Mar, [facility] [address] [id number] [address] [place] [address], [place] [id number] Mar, [facility] [address] [id number] [address] [place] [address], [place] [id number] Mar, [facility] [address] [id number] [address] [place] [address], [place] [id number] Feb, [facility] [address] [id number] [address] [place] [address], [place] [id number] Feb, [facility] [address] [id number] [address] [place] [address], [place] [id number] Feb, [facility] [address] [id number] [address] [place] [address], [place] [id number] Feb, [facility] [address] [id number] [address] [place] [address], [place] [id number] 14 Jan, 2013 [facility] [address] [id number] [address] [place] [address], [place] [id number] 14 Jan, 2013 [facility] [address] [id number] [address] [place] [address], [place] [id number] 11 Jan, 2013 [facility] [address] [id number] [address] [place] [address], [place] [id number] 11 Jan, 2013 [facility] [address] [id number] [address] [place] [address], [place] [id number] 10 Jan, 2013 [facility] [address] [id number] [address] [place] [address], [place] [id number] Jan, [facility] [address] [id number] [address] [place] [address], [place] [id number] Jan, [facility] [address] [id number] [address] [place] [address], [place] [id number] Jan, [facility] [address] [id number] [address] [place] [address], [place] [id number] Jan, [facility] [address] [id number] [address] [place] [address], [place] [id number] 26 Dec, 2012 [facility] [address] [id number] [address] [place] [address], [place] [id number] 16 Dec, 2012 [facility] [address] [id number] [address] [place] [address], [place] [id number] 16 Dec, 2012 [facility] [address] [id number] [address] [place] [address], [place] [id number] Dec, [facility] [address] [id number] [address] [place] [address], [place] [id number] Nov, [facility] [address] [id number] [address] [place] [address], [place] [id number] Nov, [facility] [address] [id number] [address] [place] [address], [place] [id number] Nov, [facility] [address] [id number] [address] [place] [address], [place] [id number] Nov, [facility] [address] [id number] [address] [place] [address], [place] [id number] Oct, [facility] [address] [id number] [address] [place] [address], [place] [id number] Sep, [facility] [address] [id number] [address] [place] [address], [place] [id number] August, [facility] [address] [id number] [address] [place] [address], [place] [id number] August, [facility] [address] [id number] [address] [place] [address], [place] [id number] August, [facility] [place] [address] [id number] [address] [place] [address], [place] [id number] August, [facility] [address] [id number] [address] [place] [address], [place] [id number] August, [facility] [address] [id number] [address] [place] [address], [place] [id number] August, [facility] [address] [id number] [address] [place] [address], [place] [id number] August, [facility] [address] [id number] [address] [place] [address], [place] [id number] August, [facility] [address] [id number] [address] [place] [address], [place] [id number] August, [facility] [place] [address] [id number] [address] [place] [address], [place] [id number] August, [facility] [facility] [address] [id number] [address] [place] [address], [place] [id number] August, [facility] [address] [id number] [address] [place] [address], [place] [id number] August, [facility] [address] [id number] [address] [place] [address], [place] [id number] Jul, [facility] [address] [id number] [address] [place] [address], [place] [id number] Jul, [facility] [address] [id number] [address] [place] [address], [place] [id number] 18 Jul, 2012 [facility] [address] [id number] [address] [place] [address], [place] [id number] 15 Jul, 2012 [facility] [address] [id number] [address] [place] [address], [place] [id number] Jul, [facility] [address] [id number] [address] [place] [address], [place] [id number] 08 Jul, 2012 [facility] [place] [address] [id number] [address] [place] [address], [place] [id number] Jul, [facility] [place] [address] [id number] [address] [place] [address], [place] [id number] Jul, [facility] [place] [address] [id number] [address] [place] [address], [place] [id number] Jul, [facility] [address] [id number] [address] [place] [address], [place] [id number] Jul, [facility] [place] [address] [id number] [address] [place] [address], [place] [id number] Jul, [facility] [address] [id number] [address] [place] [address], [place] [id number] Jun, [facility] [place] [address] [id number] [address] [place] [address], [place] [id number] Jun, [facility] [address] [id number] [address] [place] [address], [place] [id number] Jun, [facility] [place] [address] [id number] [address] [place] [address], [place] [id number] Jun, [facility] [address] [id number] [address] [place] [address], [place] [id number] May, [facility] [place] [address] [id number] [address] [place] [address], [place] [id number] 14 May, 2012 [facility] [address] [id number] [address] [place] [address], [place] [id number] 05 May, 2012 [facility] [address] [id number] [address] [place] [address], [place] [id number] 04 May, 2012 [facility] [address] [id number] [address] [place] [address], [place] [id number] 04 May, 2012 [facility] [place] [address] [id number] [address] [place] [address] [address] May, [facility] [address] [id number] [address] [place] [address], [place] [id number] Apr, [facility] [address] [id number] [address] [place] [address], [place] [id number] Apr, [facility] [address] [id number] [address] [place] [address], [place] [id number] Apr, [facility] [address] [id number] [address] [place] [address], [place] [id number] Apr, [facility] [address] [id number] [address] [place] [address], [place] [id number] 15 Mar, 2012 [facility] [address] [id number] [address] [place] [address], [place] [id number] Mar, [facility] [address] [id number] [address] [place] [address], [place] [id number] Mar, [facility] [address] [id number] [address] [place] [address], [place] [id number] Mar, [facility] [address] [id number] [address] [place] [address], [place] [id number] Mar, [facility] [address] [id number] [address] [place] [address], [place] [id number] Mar, [facility] [address] [id number] [address] [place] [address], [place] [id number] Mar, [facility] [address] [id number] [address] [place] [address], [place] [id number] Feb, [facility] [address] [id number] [address] [place] [address], [place] [id number] Feb, [facility] [address] [id number] [address] [place] [address], [place] [id number] Feb, [facility] [address] [id number] [address] [place] [address], [place] [id number] Feb, [facility] [address] [id number] [address] [place] [address], [place] [id number] Jan, [facility] [address] [id number] [address] [place] [address], [place] [id number] Jan, [facility] [address] [id number] [address] [place] [address], [place] [id number] Jan, [facility] [address] [id number] [address] [place] [address], [place] [id number] Jan, [facility] [address] [id number] [address] [place] [address], [place] [id number] Jan, [facility] [address] [id number] [address] [place] [address], [place] [id number] Jan, [facility] [address] [id number] [address] [place] [address], [place] [id number] Dec, [facility] [address] [id number] [address] [place] [address], [place] [id number] Dec, [facility] [address] [id number] [address] [place] [address], [place] [id number] Nov, [facility] [address] [id number] [address] [place] [address], [place] [id number] Sep, [facility] [address] [id number] [address] [place] [address], [place] [id number] August, [facility] [address] [id number] [address] [place] [address], [place] [id number] August, [facility] [address] [id number] [address] [place] [address], [place] [id number] August, [facility] [address] [id number] [address] [place] [address], [place] [id number] August, [facility] [address] [id number] [address] [place] [address], [place] [id number] August, [facility] [address] [id number] [address] [place] [address], [place] [id number] Jun, [facility] [address] [id number] [address] [place] [address], [place] [id number] Jun, [facility] [address] [id number] [address] [place] [address], [place] [id number] Apr, [facility] [address] [id number] [address] [place] [address], [place] [id number] Apr, [facility] [address] [id number] [address] [place] [address], [place] [id number] Mar, [facility] [address] [id number] [address] [place] [address], [place] [id number] Feb, [facility] [address] [id number] [address] [place] [address], [place] [id number] Feb, [facility] [address] [id number] [address] [place] [address], [place] [id number] Feb, [facility] [address] [id number] [address] [place] [address], [place] [id number] Jan, [facility] [address] [id number] [address] [place] [address], [place] [address] Jan, [facility] [address] [id number] [address] [place] [address], [place] [id number] Jan, [facility] [address] [id number] [address] [place] [address], [place] [id number] Jan, [facility] [address] [id number] [address] [place] [address], [place] [id number] 15 May, 2010 [facility] [address] [id number] [address] [place] [address], [place] [id number] Mar, [facility] [address] [id number] [address] [place] [address], [place] [id number] Oct, [facility] [address] [id number] [address] [place] [address], [place] [id number] Sep, [facility] [address] [id number] [address] [place] [id number] Mar, [facility] [address] [facility] [id number] [address] [place] [id number] Jan, [facility] [address] [facility] [id number] [address] [place] [id number] Jan, [facility] [address] [facility] [id number] [address] [place] [id number] May, IMMUNIZATIONS No Known Immunizations SOCIAL HISTORY [...] squamous atypia (no definite dyplasia). Performed at [facility] Dr. Joy. Medical History Acute [...]
--- OUTSIDE RECORDS SUMMARY | 2019-11-23 05:51 | XMS REPORT ---
Author Author Liana Coe Doctor Organization [facility] Address Unknown Phone Unavailable Care Team Providers Care Clinical Sciences Professor Name Role Phone Migration, Doctor Unavailable Unavailable PROBLEMS Type Condition ICD9-CM Code [id number] Code Onset Dates Condition S tatus SNOMED Code Problem Hematuria, unspecified type R31.9 Ac tive 67251658 Problem Abnormal renal ultrasound R93.429 Acti ve [id number] Problem Anxiety F41.9 Active 31509563 Problem Hypokalemia E87.6 Active 27161940 Problem Abnormal glucose R73.09 Active 102 895154 Problem Chronic pain due to trauma G89.21 Act juanis 886174384 Problem Neuroforaminal stenosis of spine M99.89 Active 641394146002 Problem Neck pain M54.2 Active 77818437 Problem Essential hypertension I10 Active 35269110 Problem Mixed hyperlipidemia E78.2 Active 78164409 ALLERGIES No Information ENCOUNTERS Encounter Location Date Diagnosis [facility] [address] [facility] [id number] [address] [place] [address] Dec, Neuroforaminal stenosis of s pine M99.89 [facility] [address] [facility] [id number] [address] [place] [address] Nov, [facility] [address] [facility] [id number] [address] [place] [address] Nov, Neuroforaminal stenosis of s pine M99.89 [facility] [address] [facility] [id number] [address] [place] [address] Nov, Acute non-recurrent maxillar y sinusitis J01.00 [facility] [address] [facility] [id number] [address] [place] [address] Oct, Hypokalemia E87.6 [facility] [address] [facility] [id number] [address] [place] [address] Oct, Wasp sting, undetermined int ent, initial encounter T63.464A and Cellulitis of left lower extremity L03.116 [place] [address] [id number] [address] [place] [address] Oct, Neuroforaminal stenosis of s pine M99.89 [place] [id number] [id number] [address] [place] [address] Sep, [place] [address] [id number] [address] [place] [address] Sep, [place] [address] [id number] [address] [place] [address] 18 Sep, 2018 Routine screening for STI (s exually transmitted infection) Z11.3 [place] [address] [id number] [address] [place] [address] 14 Sep, 2018 Routine screening for STI (s exually transmitted infection) Z11.3 ; Well woman exam with routine gynecological exam Z01.419 and Breast cancer screening Z12.39 [place] [address] [id number] [address] [place] [address] Sep, Neuroforaminal stenosis of s pine M99.89 [place] [address] [id number] [address] [place] [address] August, Neuroforaminal stenosis of s pine M99.89 [place] [address] [id number] [address] [place] [address] August, Neuroforaminal stenosis of s pine M99.89 ; Chronic pain due to trauma G89.21 and Mixed hyperlipidemia E78.2 [place] [address] [id number] [address] [place] [address] 16 Jul, 2018 Viral upper respiratory illn ess J06.9 and Acute non-recurrent frontal sinusitis J01.10 [place] [address] [id number] [address] [place] [address] 15 Jul, 2018 Congestion of nasal sinus R0 9.81 [place] [address] [facility] [id number] [address] [place] [address] Jul, Neuroforaminal stenosis of s pine M99.89 and Essential hypertension I10 [facility] [address] [facility] [id number] [address] [place] [address] May, Neuroforaminal stenosis of s pine M99.89 [facility] [address] [id number] [address] [place] [address] May, [facility] [address] [facility] [id number] [address] [place] [address] May, Congestion of nasal sinus R0 9.81 [place] [address] [facility] [id number] [address] [place] [address] May, [place] [address] [facility] [id number] [address] [place] [address] Apr, Neuroforaminal stenosis of s pine M99.89 [place] [address] [facility] [id number] [address] [place] [address] Apr, Neuroforaminal stenosis of s pine M99.89 and Chronic pain due to trauma G89.21 [place] [address] [facility] [id number] [address] [place] [address] Mar, UTI (urinary tract infection ) N39.0 [place] [address] [facility] [id number] [address] [place] [address] Mar, Vertigo R42 [place] [address] [facility] [id number] [address] [place] [address] Mar, Neuroforaminal stenosis of s pine M99.89 [facility] [address] [facility] [id number] [address] [place] [address] Feb, Extensor tendon disruption M 67.89 [facility] [address] [facility] [id number] [address] [place] [address] Feb, Neuroforaminal stenosis of s pine M99.89 and High risk medication use Z79.899 [place] [address] [place] [id number] [address] [place] [address] Jan, Hypokalemia E87.6 [place] [address] [address] Jan, Flank pain R10.9 and Acute r ight-sided low back pain without sciatica M54.5 [place] [address] [address] Jan, Hypokalemia E87.6 [place] [address] [place] [id number] [place] [address] Jan, [place] [address] [address] Jan, URI, acute J06.9 [place] [address] [address] Jan, Neuroforaminal stenosis of s pine M99.89 [place] [address] [address] 13 Dec, 2017 Lateral epicondylitis, right elbow M77.11 [place] [address] [address] 11 Dec, 2017 Allergic rhinitis due to monica rosalina, unspecified seasonality J30.1 and Allergic conjunctivitis of both eyes H10.13 [place] [address] [address] 10 Dec, 2017 Neuroforaminal stenosis of s pine M99.89 [place] [address] [address] 06 Dec, 2017 Mixed hyperlipidemia E78.2 [place] [address] [place] [id number] [place] [address] 05 Dec, 2017 Abnormal glucose R73.09 ; Ab normal renal ultrasound R93.429 ; Dysuria R30.0 ; Cystitis without hematuria N30.90 ; Hypokalemia E87.6 ; Mixed hyperlipidemia E78.2 and Hematuria, unspecified type R31.9 [place] [id number] [facility] [id number] [address] [place] [address] Nov, Hypokalemia E87.6 ; Mixed hy perlipidemia E78.2 and Hematuria, unspecified type R31.9 [place] [address] [place] [id number] [address] [place] [address] Nov, [place] [address] [facility] [id number] [address] [place] [address] Nov, Hypokalemia E87.6 [place] [address] [place] [id number] [place] [address] Nov, [place] [address] [place] [id number] [place] [address] Nov, Abnormal renal ultrasound R9 3.429 [place] [address] [place] [id number] [address] [place] [address] Nov, Abnormal renal ultrasound R9 3.429 [place] [address] [address] Nov, Hematuria, unspecified type R31.9 and Neuroforaminal stenosis of spine M99.89 [place] [address] [place] [id number] [address] [place] [address] Nov, Dysuria R30.0 [place] [address] [place] [id number] [address] [place] [address] Oct, Lateral epicondylitis, right elbow M77.11 [place] [address] [place] [id number] [address] [place] [address] Oct, Neuroforaminal stenosis of s pine M99.89 ; Visit for TB skin test Z11.1 and Essential hypertension I10 [place] [address] [place] [id number] [address] [place] [address] Oct, [place] [address] [id number] [address] [place] [address] 12 Oct, 2017 Neuroforaminal stenosis of s pine M99.89 [place] [address] [id number] [address] [place] [address] 10 Oct, 2017 Visit for TB skin test Z11.1 [place] [address] [id number] [address] [place] [address] 05 Oct, 2017 Cystitis without hematuria N 30.90 [place] [address] [id number] [address] [place] [address] 28 Sep, 2017 Screening breast examination Z12.39 [place] [address] [id number] [address] [place] [address] 26 Sep, 2017 Dysuria R30.0 and Cystitis w ithout hematuria N30.90 [place] [address] [id number] [address] [place] [address] 14 Sep, 2017 Essential hypertension I10 a nd Neuroforaminal stenosis of spine M99.89 [place] [address] [id number] [address] [place] [address] 04 Sep, 2017 Abnormal glucose R73.09 [place] [address] [facility] [id number] [address] [place] [address] August, Lateral epicondylitis, right elbow M77.11 [place] [address] [facility] [id number] [address] [place] [address] August, Screen for STD (sexually tra nsmitted disease) Z11.3 [place] [address] [id number] [address] [place] [address] August, Neuroforaminal stenosis of s pine M99.89 ; Mixed hyperlipidemia E78.2 ; Elevated fasting glucose R73.01 ; Screening mammogram, encounter for Z12.31 and Encounter for well woman exam without gynecological exam Z00.00 [place] [address] [id number] [address] [place] [address] August, Neuroforaminal stenosis of s jose M99.89 [facility] [address] [id number] [address] [place] [address] August, Essential hypertension I10 ; Hypokalemia E87.6 and Mixed hyperlipidemia E78.2 [facility] [address] [id number] [address] [place] [address] Jul, [facility] [address] [id number] [address] [place] [address] Jul, Neuroforaminal stenosis of s jose M99.89 [facility] [address] [id number] [address] [place] [address] Jul, Lateral epicondylitis, right elbow M77.11 [facility] [address] [id number] [address] [place] [address] Jul, [facility] [address] [id number] [address] [place] [address] Jun, High ankle sprain of right l ower extremity, initial encounter S93.431A [facility] [address] [id number] [address] [place] [address] Jun, Essential hypertension I10 [facility] [address] [id number] [address] [place] [address] Jun, [facility] [address] [id number] [address] [place] [address] Jun, [facility] [address] [id number] [address] [place] [address] Jun, Neuroforaminal stenosis of s jose M99.89 [facility] [address] [id number] [address] [place] [address] Jun, Pain of right upper extremit y M79.601 and Essential hypertension I10 [facility] [address] [id number] [address] [place] [address] Jun, [facility] [address] [place] [address] Jun, Dysuria R30.0 ; Acute cystit is with hematuria N30.01 and Screen for STD (sexually transmitted disease) Z11.3 [place] [address] [place] [address] May, Chronic pain due to trauma G 89.21 [place] [address] [address] May, Essential hypertension I10 [address] [address] May, Neuroforaminal stenosis of s jose M99.[address] [address] Apr, Allergic reaction, initial e ncounter T78.40XA [address] [address] Apr, Low back pain, unspecified b ack pain laterality, unspecified chronicity, with sciatica presence unspecified M54.5 ; Acute cystitis with hematuria N30.01 ; Neuroforaminal stenosis of spine M99.89 ; Bilateral acute serous otitis media, recurrence not specified H65.03 ; Mixed hyperlipidemia E78.2 ; Essential hypertension I10 ; Immunization counseling Z71.89 and Encounter for immunization Z23 [address] [address] Apr, Neck pain M54.[address] [address] Mar, Neuroforaminal stenosis of s pine M99.89 [place] [address] [address] Mar, Pharyngitis due to other org anism J02.[address] [address] Feb, Neuroforaminal stenosis of s pine M99.89 [facility] [address] [id number] [address] [place] [address] Feb, UTI (urinary tract infection ) N39.0 [facility] [address] [id number] [address] [place] [address] Feb, Recent urinary tract infecti on Z87.440 ; Neuroforaminal stenosis of spine M99.89 ; Neck pain M54.2 ; Chronic pain due to trauma G89.21 and Recurrent UTI N39.0 [facility] [address] [id number] [address] [place] [address] Feb, [facility] [address] [id number] [address] [place] [address] Jan, Neuroforaminal stenosis of s pine M99.89 [facility] [address] [id number] [address] [place] [address] Dec, Neuroforaminal stenosis of s pine M99.89 [facility] [address] [id number] [address] [place] [address] Dec, Acute seasonal allergic rhin itis due to pollen J30.1 [facility] [address] [id number] [address] [place] [address] Dec, [facility] [address] [id number] [address] [place] [address] Dec, Acute seasonal allergic rhin itis, unspecified trigger J30.2 ; Allergic conjunctivitis of both eyes H10.13 and Dysfunction of both eustachian tubes H69.83 [facility] [address] [id number] [address] [place] [address] Dec, [facility] [address] [id number] [address] [place] [address] Dec, Nevus D22.9 [facility] [address] [id number] [address] [place] [address] Nov, Chronic pain due to trauma G 89.21 and Neuroforaminal stenosis of spine M99.89 [facility] [address] [id number] [address] [place] [address] Nov, Neuroforaminal stenosis of s pine M99.89 ; Essential hypertension I10 ; Mixed hyperlipidemia E78.2 ; Hypokalemia E87.6 ; Neck pain M54.2 and Nevus D22.9 [facility] [address] [id number] [address] [place] [address] Oct, Neuroforaminal stenosis of s pine M99.89 [facility] [address] [id number] [address] [place] [address] Sep, Neuroforaminal stenosis of s pine M99.89 [facility] [address] [id number] [address] [place] [address] Sep, [facility] [address] [id number] [address] [place] [address] August, [facility] [address] [id number] [address] [place] [address] August, Neck pain M54.2 and Neurofor aminal stenosis of spine M99.89 [facility] [address] [id number] [address] [place] [address] August, Routine gynecological examin ation Z01.419 and Screening breast examination Z12.39 [facility] [address] [id number] [address] [place] [address] Jul, [facility] [address] [id number] [address] [place] [address] Jul, [facility] [address] [id number] [address] [place] [address] Jul, Neuroforaminal stenosis of s pine M99.89 [facility] [address] [id number] [address] [place] [address] Jul, [facility] [address] [facility] [id number] [address] [place] [address] Jul, Neuroforaminal stenosis of l umbar 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 [facility] [address] [facility] [id number] [address] [place] [address] Jul, [facility] [address] [place] [id number] [address] [place] [address] Jul, [facility] [address] [facility] [id number] [address] [place] [address] Jun, Neuroforaminal stenosis of s jose M99.89 [place] [address] [place] [id number] [address] [place] [address] Jun, Uterine leiomyoma, unspecifi ed location D25.9 and Allergic reaction caused by a drug, initial encounter T78.40XA [place] [address] [place] [address] Jun, [place] [address] [facility] [id number] [address] [place] [address] May, UTI symptoms R39.9 and Pain of right sacroiliac joint M53.3 [place] [address] [place] [id number] [address] [place] [address] May, Neuroforaminal stenosis of s jose M99.89 [place] [id number] [place] [address] May, [place] [address] [place] [id number] [address] [place] [address] May, Acute mucoid otitis media of left ear H65.112 and Acute non- recurrent maxillary sinusitis J01.00 [place] [address] [place] [id number] [address] [place] [address] May, Acute bacterial conjunctivit is of both eyes H10.33 ; Left arm pain M79.602 and Hypokalemia E87.6 [place] [address] [place] [id number] [address] [place] [address] Apr, [place] [address] [facility] [id number] [address] [place] [address] Apr, Neuroforaminal stenosis of s pine M99.89 ; Neck pain M54.2 ; Chronic pain due to trauma G89.21 ; Mixed hyperlipidemia E78.2 ; Essential hypertension I10 and Hypokalemia E87.6 [place] [address] [id number] [address] [place] [address] Mar, Oral candidiasis B37.0 ; Nathaniel roforaminal stenosis of spine M99.89 ; Neck pain M54.2 and Chronic pain due to trauma G89.21 [place] [address] [place] [id number] [address] [place] [address] Feb, [place] [address] [place] [id number] [address] [place] [address] Feb, [place] [address] [place] [id number] [address] [place] [address] Feb, UTI (urinary tract infection ) N39.0 [place] [address] [place] [id number] [address] [place] [address] Feb, Dysuria R30.0 [place] [address] [place] [id number] [address] [place] [address] Feb, Dysuria R30.0 [place] [address] [place] [id number] [address] [place] [address] 02 Feb, 2016 Neuroforaminal stenosis of s pine M99.89 ; Neck pain M54.2 ; Essential hypertension I10 ; Chronic pain due to trauma G89.21 ; Dysuria R30.0 ; Abnormal MRI, shoulder R93.8 and Acute cystitis without hematuria N30.00 [place] [address] [place] [id number] [address] [place] [address] Jan, [place] [address] [place] [id number] [address] [place] [address] Jan, [facility] [address] [id number] [address] [place] [address] Jan, [facility] [address] [id number] [address] [place] [address] Jan, Abnormal MRI R93.8 [facility] [address] [id number] [address] [place] [address] 29 Dec, 2015 [facility] [address] [id number] [address] [place] [address] 15 Dec, 2015 Acute pain of left shoulder M25.512 [facility] [address] [id number] [address] [place] [address] 09 Dec, 2015 [facility] [address] [id number] [address] [place] [address] 08 Dec, 2015 [facility] [address] [id number] [address] [place] [address] 07 Dec, 2015 Acute pain of left shoulder M25.512 [facility] [address] [id number] [address] [place] [address] Nov, [facility] [address] [id number] [address] [place] [id number] 16 Nov, 2015 Neuroforaminal stenosis of s pine M99.89 ; Neck pain M54.2 ; Abnormal mammogram R92.8 ; Essential hypertension I10 and Chronic pain due to trauma G89.21 [facility] [address] [id number] [address] [place] [id number] Nov, [facility] [address] [id number] [address] [place] [id number] Oct, Acute stress disorder F43.0 [facility] [address] [id number] [address] [place] [id number] Oct, [facility] [address] [id number] [address] [place] [id number] 14 Oct, 2015 [facility] [address] [id number] [address] [place] [id number] Oct, [facility] [address] [id number] [address] [place] [id number] Sep, [facility] [address] [id number] [address] [place] [id number] August, [facility] [address] [id number] [address] [place] [id number] Jul, Neuroforaminal stenosis of s pine M99.89 ; Neck pain M54.2 ; Abnormal mammogram R92.8 and Essential hypertension I10 [facility] [address] [id number] [address] [place] [id number] Jul, [facility] [address] [id number] [address] [place] [id number] Jul, [facility] [address] [id number] [address] [place] [id number] Jul, Abnormal mammogram R92.8 [facility] [address] [id number] [address] [place] [id number] Jul, [facility] [address] [id number] [address] [place] [phone] Jul, UTI (urinary tract infection ) N39.0 [facility] [address] [id number] [address] [place] [phone] Jul, Dysuria R30.0 [facility] [address] [id number] [address] [place] [id number] Jun, [facility] [address] [id number] [address] [place] [id number] Jun, [facility] [address] [id number] [address] [place] [id number] Jun, Hypokalemia E87.6 and Hematu martina R31.9 [facility] [address] [id number] Jun, Hypokalemia E87.6 [place] [address] [id number] Jun, [place] [address] [id number] Jun, Hypokalemia E87.6 [place] [address] [id number] Jun, Hypokalemia E87.6 [place] [address] [address] Jun, Neuroforaminal stenosis of s pine M99.89 ; Hypokalemia E87.6 ; Neck pain M54.2 ; Essential hypertension I10 ; Mixed hyperlipidemia E78.2 and Screening breast examination Z12.39 [place] [address] [address] Jun, Dysuria R30.0 ; UTI (urinary tract infection) N39.0 and Hematuria R31.9 [place] [address] [address] May, [place] [address] [address] May, High risk sexual behavior Z7 2.51 ; Hypokalemia E87.6 ; Neuroforaminal stenosis of spine M99.89 ; Neck pain M54.2 ; Essential hypertension I10 ; Mixed hyperlipidemia E78.2 ; STD exposure Z20.2 and Concern about STD in female without diagnosis Z71.[address] [address] 16 May, 2015 Neuroforaminal stenosis of s pine M99.89 ; Neck pain M54.2 ; Hypokalemia E87.6 ; Essential hypertension I10 and Mixed hyperlipidemia E78.2 [place] [address] [address] 11 May, 2015 [facility] [address] [place] [id number] [address] [place] [address] 08 May, 2015 High risk sexual behavior Z7 2.51 ; STD exposure Z20.2 and Concern about STD in female without diagnosis Z71.1 [facility] [address] [place] [id number] [address] [place] [address] May, [place] [address] [address] Apr, Neuroforaminal stenosis of s pine M99.89 ; Mixed hyperlipidemia E78.2 ; Essential hypertension I10 and Hypokalemia E87.6 [place] [address] [address] Mar, [place] [address] [address] Mar, Hypokalemia E87.6 [place] [address] [address] Mar, Neuroforaminal stenosis of s pine M99.89 ; Mixed hyperlipidemia E78.2 ; Neck pain M54.2 ; Essential hypertension I10 ; Abnormal fasting glucose R73.09 ; Hypokalemia E87.6 and Constipation K59.00 [place] [address] [place] [id number] [address] [place] [address] Feb, Neuroforaminal stenosis of s pine M99.89 ; Mixed hyperlipidemia E78.2 ; Neck pain M54.2 ; Essential hypertension I10 ; Abnormal fasting glucose R73.09 ; Hypokalemia E87.6 and Constipation K59.00 [place] [address] [address] Feb, Elevated fasting blood sugar R73.01 [place] [address] [address] Feb, Elevated fasting blood sugar R73.01 [place] [address] [id number] [address] [place] [address] Feb, Hair loss L65.9 [place] [address] [address] [facility] [id number] [address] [place] [address] Feb, Sinusitis J32.9 ; Essential hypertension I10 and Hair loss L65.9 [place] [address] [address] [facility] [id number] [address] [place] [address] Jan, [place] [address] [address] [facility] [id number] [address] [place] [address] Jan, Essential hypertension I10 ; Neuroforaminal stenosis of spine M99.89 ; Neck pain M54.2 ; Mixed hyperlipidemia E78.2 and Anxiety F41.9 [place] [address] [address] [facility] [id number] [address] [place] [address] Jan, [place] [address] [address] [place] [id number] [place] [address] Jan, Mixed hyperlipidemia E78.2 ; Essential (primary) hypertension I10 ; Strain of muscle, fascia and tendon at neck level, subsequent encounter S16.1XXD and Tension-type headache, unspecified, not intractable G44.209 [place] [address] [id number] [address] [place] [address] Dec, Lumbar back pain 724.2 and N euroforaminal stenosis of spine 724.00 [place] [address] [id number] [address] [place] [address] Nov, [place] [address] [id number] [address] [place] [address] Nov, Lumbar back pain 724.2 and N euroforaminal stenosis of spine 724.00 [place] [address] [address] [facility] [id number] [address] [place] [address] Nov, Edema 782.3 ; Lumbar back pa in 724.2 ; Essential hypertension, benign 401.1 ; Hyperlipemia 272.4 ; Neuroforaminal stenosis of spine 724.00 and Post-concussion headache 339.20 [facility] [address] [id number] [address] [place] [address] Nov, [facility] [address] [id number] [address] [place] [address] Nov, [facility] [address] [id number] [address] [place] [address] Oct, Essential hypertension, sheridan gn 401.1 [facility] [address] [id number] [address] [place] [address] Oct, Edema 782.3 ; Lumbar back pa in 724.2 ; Essential hypertension, benign 401.1 ; Hyperlipemia 272.4 ; Neuroforaminal stenosis of spine 724.00 and Post-concussion headache 339.20 [facility] [address] [id number] [address] [place] [address] Oct, [facility] [address] [id number] [address] [place] [address] Oct, Edema 782.3 [facility] [address] [id number] [address] [place] [address] Oct, Lumbar back pain 724.2 [place] [address] [id number] [address] [place] [address] Oct, Cervicalgia 723.1 ; Lumbar b ack pain 724.2 and High risk medication use V58.69 [facility] [address] [id number] [address] [place] [address] Sep, [facility] [address] [id number] [address] [place] [address] Sep, Lumbar strain 847.2 [facility] [address] [id number] [address] [place] [address] August, Edema 782.3 and Eustachian t ube dysfunction 381.81 [place] [id number] [id number] [address] [place] [address] August, [facility] [place] [address] [id number] [address] [place] [address] August, Eustachian tube dysfunction 381.81 [facility] [place] [address] [id number] [address] [place] [address] Jul, Otalgia 388.70 and Otitis me jonathon 382.9 [facility] [address] [id number] [address] [place] [address] Jul, [facility] [address] [id number] [address] [place] [address] Jul, [facility] [address] [id number] [address] [place] [address] Jul, [facility] [place] [address] [id number] [address] [place] [address] Jul, [facility] [address] [id number] [address] [place] [address] Jul, [facility] [address] [id number] [address] [place] [address] Jun, [facility] [address] [id number] [address] [place] [address] Jun, [facility] [address] [id number] [address] [place] [address] Jun, [facility] [address] [id number] [address] [place] [address] May, [facility] [address] [id number] [address] [place] [address] May, [facility] [address] [id number] [address] [place] [address] May, [facility] [address] [id number] [address] [place] [address] May, [facility] [address] [id number] [address] [place] [address], [place] [address] 17 May, 2014 [facility] [address] [id number] [address] [place] [address], [place] [address] May, 2014 [facility] [address] [id number] [address] [place] [address], [place] [address] May, 2014 [facility] [address] [id number] [address] [place] [address], [place] [address] May, 2014 [facility] [address] [id number] [address] [place] [address], [place] [address] May, 2014 [facility] [address] [id number] [address] [place] [address], [place] [address] May, [facility] [address] [id number] [address] [place] [address], [place] [address] Apr, [facility] [address] [id number] [address] [place] [address], [place] [address] Apr, [facility] [address] [id number] [address] [place] [address], [place] [address] Apr, [facility] [address] [id number] [address] [place] [address], [place] [address] Apr, [facility] [address] [id number] [address] [place] [address], [place] [address] Apr, [facility] [address] [id number] [address] [place] [address], [place] [address] Apr, [facility] [address] [id number] [address] [place] [address], [place] [address] Apr, [facility] [address] [id number] [address] [place] [address], [place] [address] Apr, [facility] [address] [id number] [address] [place] [address], [place] [address] Apr, [facility] [address] [id number] [address] [place] [address], [place] [address] Apr, [facility] [address] [id number] [address] [place] [address], [place] [address] Apr, [facility] [address] [id number] [address] [place] [address], [place] [address] Apr, [facility] [address] [id number] [address] [place] [address], [place] [address] Apr, [facility] [address] [id number] [address] [place] [address], [place] [address] Apr, [facility] [address] [id number] [address] [place] [address], [place] [address] Apr, [facility] [address] [id number] [address] [place] [address], [place] [address] Mar, [facility] [address] [id number] [address] [place] [address], [place] [address] Mar, [facility] [address] [id number] [address] [place] [address], [place] [address] Mar, [facility] [address] [id number] [address] [place] [address], [place] [address] Mar, [facility] [address] [id number] [address] [place] [address], [place] [address] Feb, [facility] [address] [id number] [address] [place] [address] Feb, [facility] [address] [id number] [address] [place] [address] Feb, [facility] [address] [id number] [address] [place] [address], [place] [address] Feb, [facility] [address] [id number] [address] [place] [address], [place] [address] Jan, [facility] [address] [id number] [address] [place] [address] Jan, [facility] [address] [id number] [address] [place] [address], [place] [address] Jan, [facility] [address] [id number] [address] [place] [address], [place] [address] Jan, [facility] [address] [id number] [address] [place] [address], [place] [address] Jan, [facility] [address] [id number] [address] [place] [address], [place] [address] Jan, [facility] [address] [id number] [address] [place] [address], [place] [address] Jan, [facility] [address] [id number] [address] [place] [address], [place] [address] Jan, [facility] [address] [id number] [address] [place] [address], [place] [address] Dec, [facility] [address] [id number] [address] [place] [address], [place] [address] Dec, [facility] [address] [id number] [address] [place] [address], [place] [address] Dec, [facility] [address] [id number] [address] [place] [address], [place] [address] Dec, [facility] [address] [id number] [address] [place] [address], [place] [address] Oct, [facility] [address] [id number] [address] [place] [address], [place] [address] Oct, [facility] [address] [id number] [address] [place] [address], [place] [address] Oct, [facility] [address] [id number] [address] [place] [address], [place] [address] Oct, [facility] [address] [id number] [address] [place] [address], [place] [address] Oct, [facility] [address] [id number] [address] [place] [address], [place] [address] Oct, [facility] [address] [id number] [address] [place] [address], [place] [address] Oct, [facility] [address] [id number] [address] [place] [address], [place] [address] Oct, [facility] [address] [id number] [address] [place] [address], [place] [address] Sep, [facility] [address] [id number] [address] [place] [address], [place] [address] Sep, [facility] [address] [id number] [address] [place] [address], [place] [address] Sep, [facility] [address] [id number] [address] [place] [address], [place] [address] Sep, [facility] [address] [id number] [address] [place] [address], [place] [address] Sep, [facility] [address] [id number] [address] [place] [address], [place] [address] Sep, [facility] [address] [id number] [address] [place] [address], [place] [address] Sep, [facility] [address] [id number] [address] [place] [address], [place] [address] Sep, [facility] [address] [id number] [address] [place] [address], [place] [address] Sep, [facility] [address] [id number] [address] [place] [address], [place] [address] Sep, [facility] [address] [id number] [address] [place] [address], [place] [address] August, [facility] [address] [id number] [address] [place] [address], [place] [address] August, [facility] [address] [id number] [address] [place] [address], [place] [address] August, [facility] [address] [id number] [address] [place] [address], [place] [address] August, [facility] [address] [id number] [address] [place] [address], [place] [address] August, [facility] [address] [id number] [address] [place] [address], [place] [address] August, [facility] [address] [id number] [address] [place] [address], [place] [address] August, [facility] [address] [id number] [address] [place] [address], [place] [address] August, [facility] [address] [id number] [address] [place] [address], [place] [address] August, [facility] [address] [id number] [address] [place] [address], [place] [address] August, [facility] [address] [id number] [address] [place] [address], [place] [address] August, [facility] [address] [id number] [address] [place] [address], [place] [address] August, [facility] [address] [id number] [address] [place] [address], [place] [address] Jul, [facility] [address] [id number] [address] [place] [address], [place] [address] Jul, [facility] [address] [id number] [address] [place] [address], [place] [address] Jul, [facility] [address] [id number] [address] [place] [address], [place] [address] Jul, [facility] [address] [id number] [address] [place] [address], [place] [address] Jul, [facility] [address] [id number] [address] [place] [address], [place] [address] Jul, [facility] [address] [id number] [address] [place] [address], [place] [address] Jun, [facility] [address] [id number] [address] [place] [address], [place] [address] Jun, [facility] [address] [id number] [address] [place] [address], [place] [address] May, [facility] [address] [id number] [address] [place] [address], [place] [address] May, [facility] [address] [id number] [address] [place] [address], [place] [address] Apr, [facility] [address] [id number] [address] [place] [address], [place] [address] Apr, [facility] [address] [id number] [address] [place] [address], [place] [address] Apr, [facility] [address] [id number] [address] [place] [address], [place] [address] Apr, [facility] [address] [id number] [address] [place] [address], [place] [address] Apr, [facility] [address] [id number] [address] [place] [address], [place] [address] Apr, [facility] [address] [id number] [address] [place] [address], [place] [address] Apr, [facility] [address] [id number] [address] [place] [address], [place] [address] Apr, [facility] [address] [id number] [address] [place] [address], [place] [address] Apr, [facility] [address] [id number] [address] [place] [address], [place] [address] Apr, [facility] [address] [id number] [address] [place] [address], [place] [address] Apr, [facility] [address] [id number] [address] [place] [address], [place] [address] Apr, [facility] [address] [id number] [address] [place] [address], [place] [address] Apr, [facility] [address] [id number] [address] [place] [address], [place] [address] Mar, [facility] [address] [id number] [address] [place] [address], [place] [address] Mar, [facility] [address] [id number] [address] [place] [address], [place] [address] Mar, [facility] [address] [id number] [address] [place] [address], [place] [address] Mar, [facility] [address] [id number] [address] [place] [address], [place] [address] Feb, [facility] [address] [id number] [address] [place] [address], [place] [address] Feb, [facility] [address] [id number] [address] [place] [address], [place] [address] Feb, [facility] [address] [id number] [address] [place] [id number] Feb, [facility] [address] [id number] [address] [place] [address], [place] [address] 14 Jan, 2013 [facility] [address] [id number] [address] [place] [id number] 14 Jan, 2013 [facility] [address] [id number] [address] [place] [id number] Jan, [facility] [address] [id number] [address] [place] [id number] 11 Jan, 2013 [facility] [address] [id number] [address] [place] [address], [place] [address] 10 Jan, 2013 [facility] [address] [id number] [address] [place] [id number] 10 Jan, 2013 [facility] [address] [id number] [address] [place] [id number] 09 Jan, 2013 [facility] [address] [id number] [address] [place] [address], [place] [address] Jan, [facility] [place] [address] [id number] [address] [place] [address], [place] [address] Jan, [facility] [address] [id number] [address] [place] [address], [place] [address] 26 Dec, 2012 [facility] [address] [id number] [address] [place] [address], [place] [address] 16 Dec, 2012 [facility] [address] [id number] [address] [place] [address], [place] [address] 16 Dec, 2012 [facility] [address] [id number] [address] [place] [address], [place] [address] Dec, [facility] [address] [id number] [address] [place] [address], [place] [address] Nov, [facility] [address] [id number] [address] [place] [address], [place] [address] Nov, [facility] [place] [address] [id number] [address] [place] [address], [place] [address] Nov, [facility] [place] [address] [id number] [address] [place] [address], [place] [address] Nov, [facility] [address] [id number] [address] [place] [address], [place] [address] Oct, [facility] [place] [address] [id number] [address] [place] [address], [place] [address] Sep, [facility] [address] [id number] [address] [place] [address], [place] [address] August, [facility] [address] [id number] [address] [place] [address], [place] [address] August, [facility] [address] [id number] [address] [place] [address], [place] [address] August, [facility] [address] [id number] [address] [place] [address], [place] [address] August, [facility] [place] [address] [id number] [address] [place] [address], [place] [address] August, [facility] [place] [address] [id number] [address] [place] [address], [place] [address] August, [facility] [place] [address] [id number] [address] [place] [address], [place] [address] August, [facility] [address] [id number] [address] [place] [address], [place] [address] August, [facility] [address] [id number] [address] [place] [address], [place] [address] August, [facility] [address] [id number] [address] [place] [address], [place] [address] August, [facility] [address] [id number] [address] [place] [address], [place] [address] August, [facility] [address] [id number] [address] [place] [address], [place] [address] August, [facility] [address] [id number] [address] [place] [place] [address], [place] [address] Jul, [facility] [address] [id number] [address] [place] [address], [place] [address] Jul, [facility] [address] [id number] [address] [place] [address], [place] [address] Jul, [facility] [address] [id number] [address] [place] [address], [place] [address] Jul, [facility] [address] [id number] [address] [place] [address], [place] [address] Jul, [facility] [address] [id number] [address] [place] [address], [place] [address] Jul, [facility] [address] [id number] [address] [place] [address], [place] [address] 04 Jul, 2012 [facility] [address] [id number] [address] [place] [address] Jul, [facility] [address] [id number] [address] [place] [address], [place] [address] Jul, [facility] [address] [id number] [address] [place] [address], [place] [address] Jul, [facility] [address] [id number] [address] [place] [address], [place] [address] Jul, [facility] [address] [id number] [address] [place] [address], [place] [address] Jun, [facility] [address] [id number] [address] [place] [address], [place] [address] Jun, [facility] [address] [id number] [address] [place] [address], [place] [address] Jun, [facility] [place] [address] [id number] [address] [place] [address], [place] [address] Jun, [facility] [address] [id number] [address] [place] [address], [place] [address] May, [facility] [place] [address] [id number] [address] [place] [address], [place] [address] May, [facility] [place] [address] [id number] [address] [place] [address], [place] [address] May, [facility] [place] [address] [id number] [address] [place] [address], [place] [address] May, [facility] [address] [id number] [address] [place] [address] May, [facility] [address] [id number] [address] [place] [address], [place] [address] May, [facility] [address] [id number] [address] [place] [address] Apr, [facility] [address] [id number] [address] [place] [address] Apr, [facility] [address] [id number] [address] [place] [address], [place] [address] 30 Apr, 2012 [facility] [address] [id number] [address] [place] [address], [place] [address] Apr, [facility] [address] [id number] [address] [place] [address], [place] [address] 15 Mar, 2012 [facility] [address] [id number] [address] [place] [address], [place] [address] 14 Mar, 2012 [facility] [address] [id number] [address] [place] [address], [place] [address] 14 Mar, 2012 [facility] [address] [id number] [address] [place] [address], [place] [address] Mar, [facility] [address] [id number] [address] [place] [address], [place] [address] Mar, [facility] [address] [id number] [address] [place] [address], [place] [address] Mar, [facility] [address] [id number] [address] [place] [address], [place] [address] Mar, [facility] [address] [id number] [address] [place] [address], [place] [address] Feb, [facility] [address] [id number] [address] [place] [address], [place] [address] Feb, [facility] [address] [id number] [address] [place] [address], [place] [address] Feb, [facility] [address] [id number] [address] [place] [address], [place] [address] Feb, [facility] [address] [id number] [address] [place] [address], [place] [address] Jan, [facility] [address] [id number] [address] [place] [address], [place] [address] Jan, [facility] [address] [id number] [address] [place] [address], [place] [address] Jan, [facility] [address] [id number] [address] [place] [address], [place] [address] Jan, [facility] [address] [id number] [address] [place] [address], [place] [address] Jan, [facility] [address] [id number] [address] [place] [address], [place] [address] Jan, [facility] [address] [id number] [address] [place] [address], [place] [address] Dec, [facility] [address] [id number] [address] [place] [address], [place] [address] Dec, [facility] [address] [id number] [address] [place] [address], [place] [address] Nov, [facility] [address] [id number] [address] [place] [address], [place] [address] Sep, [facility] [address] [id number] [address] [place] [address], [place] [address] August, [facility] [address] [id number] [address] [place] [address], [place] [address] August, [facility] [address] [id number] [address] [place] [address], [place] [address] August, [facility] [address] [id number] [address] [place] [address], [place] [address] August, [facility] [address] [id number] [address] [place] [address], [place] [address] August, [facility] [address] [id number] [address] [place] [address], [place] [address] Jun, [facility] [address] [id number] [address] [place] [address], [place] [address] Jun, [facility] [address] [id number] [address] [place] [address], [place] [address] Apr, [facility] [address] [id number] [address] [place] [address], [place] [address] 20 Apr, 2011 [facility] [address] [id number] [address] [place] [address], [place] [address] 23 Mar, 2011 [facility] [address] [id number] [address] [place] [address], [place] [address] Feb, [facility] [address] [id number] [address] [place] [address], [place] [address] 14 Feb, 2011 [facility] [address] [id number] [address] [place] [address], [place] [address] 14 Feb, 2011 [facility] [address] [id number] [address] [place] [address], [place] [address] 17 Jan, 2011 [facility] [address] [id number] [address] [place] [address], [place] [address] 15 Jan, 2011 [facility] [address] [id number] [address] [place] [address], [place] [address] 15 Jan, 2011 [facility] [address] [id number] [address] [place] [address], [place] [address] 14 Jan, 2011 [facility] [address] [id number] [address] [place] [address], [place] [address] 15 May, 2010 [facility] [place] [address] [id number] [address] [place] [address], [place] [address] 04 Mar, 2010 [facility] [address] [id number] [address] [place] [address], [place] [address] Oct, [facility] [address] [id number] [address] [place] [address], [place] [address] Sep, [facility] [address] [id number] [address] [place] [address], [place] [address] Mar, [facility] [address] [id number] [address] [place] [address], [place] [address] Jan, [facility] [address] [id number] [address] [place] [address], [place] [address] Jan, [facility] [address] [facility] [id number] [address] [place] [address] May, IMMUNIZATIONS No Known Immunizations SOCIAL HISTORY [...] (no definite dyplasia). Performed at [facility] Dr. Joy. Medical History Acute suppurative [...]
--- OUTSIDE RECORDS SUMMARY | 2019-11-23 05:51 | XMS REPORT ---
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 Role Phone Migration, Doctor Unavailable Unavailable PROBLEMS Type Condition ICD9-CM Code AMQ26-GX Code Onset Dates Condition S tatus SNOMED Code Problem Hematuria, unspecified type R31.9 Ac tive 53939747 Problem Abnormal renal ultrasound R93.429 Acti ve [id number] Problem Anxiety F41.9 Active 07642968 Problem Hypokalemia E87.6 Active 28143101 Problem Abnormal glucose R73.09 Active 102 219466 Problem Chronic pain due to trauma G89.21 Act juanis 342135966 Problem Neuroforaminal stenosis of spine M99.89 Active 908777146741 Problem Neck pain M54.2 Active 04656597 Problem Essential hypertension I10 Active 31115170 Problem Mixed hyperlipidemia E78.2 Active 96683739 ALLERGIES No Information ENCOUNTERS Encounter Location Date Diagnosis [facility] [address] [facility] [id number] [address] [place] [id number] Dec, Neuroforaminal stenosis of s pine M99.89 [facility] [address] [facility] [id number] [address] [place] [phone] Dec, Neuroforaminal stenosis of s pine M99.89 [facility] [address] [facility] [id number] [address] [place] [phone] Nov, [facility] [address] [facility] [id number] [address] [place] [id number] Nov, Neuroforaminal stenosis of s pine M99.89 [facility] [address] [facility] [id number] [address] [place] [phone] Nov, Acute non-recurrent maxillar y sinusitis J01.00 [facility] [address] [facility] [id number] [address] [place] [phone] Oct, Hypokalemia E87.6 [facility] [address] [id number] [address] [place] [id number] Oct, Wasp sting, undetermined int ent, initial encounter T63.464A and Cellulitis of left lower extremity L03.116 [place] [address] [facility] [id number] [address] [place] [id number] Oct, Neuroforaminal stenosis of s pine M99.89 [place] [address] [id number] [address] [place] [phone] Sep, [place] [address] [id number] [address] [place] [phone] Sep, [place] [address] [facility] [id number] [address] [place] [id number] 18 Sep, 2018 Routine screening for STI (s exually transmitted infection) Z11.3 [place] [address] [facility] [id number] [address] [place] [phone] Sep, Routine screening for STI (s exually transmitted infection) Z11.3 ; Well woman exam with routine gynecological exam Z01.419 and Breast cancer screening Z12.39 [place] [address] [facility] [id number] [address] [place] [address] Sep, Neuroforaminal stenosis of s pine M99.89 [place] [address] [facility] [id number] [address] [place] [address] August, Neuroforaminal stenosis of s pine M99.89 [place] [address] [facility] [id number] [address] [place] [id number] August, Neuroforaminal stenosis of s pine M99.89 ; Chronic pain due to trauma G89.21 and Mixed hyperlipidemia E78.2 [place] [address] [facility] [id number] [address] [place] [id number] 16 Jul, 2018 Viral upper respiratory illn ess J06.9 and Acute non-recurrent frontal sinusitis J01.10 [place] [address] [id number] [address] [place] [phone] Jul, Congestion of nasal sinus R0 9.81 [facility] [address] [id number] [address] [place] [phone] Jul, Neuroforaminal stenosis of s pine M99.89 and Essential hypertension I10 [facility] [address] [id number] [address] [place] [address] May, Neuroforaminal stenosis of s pine M99.89 [facility] [address] [id number] [address] [place] [phone] May, [facility] [address] [id number] [address] [place] [phone] May, Congestion of nasal sinus R0 9.81 [facility] [address] [id number] [address] [place] [phone] May, [facility] [address] [id number] [address] [place] [phone] Apr, Neuroforaminal stenosis of s pine M99.89 [facility] [address] [facility] [id number] [address] [place] [address] Apr, Neuroforaminal stenosis of s pine M99.89 and Chronic pain due to trauma G89.21 [facility] [address] [facility] [id number] [address] [place] [address] Mar, UTI (urinary tract infection ) N39.0 [facility] [address] [id number] [address] [place] [address] Mar, Vertigo R42 [facility] [address] [facility] [id number] [address] [place] [address] Mar, Neuroforaminal stenosis of s pine M99.89 [facility] [address] [facility] [id number] [address] [place] [address] Feb, Extensor tendon disruption M 67.89 [facility] [address] [id number] [address] [place] [id number] 02 Feb, 2018 Neuroforaminal stenosis of s pine M99.89 and High risk medication use Z79.899 [facility] [address] [id number] [address] [place] [address] Jan, Hypokalemia E87.6 [facility] [address] [id number] [address] [place] [phone] Jan, Flank pain R10.9 and Acute r ight-sided low back pain without sciatica M54.5 [facility] [address] [id number] [address] [place] [phone] Jan, Hypokalemia E87.6 [place] [address] [facility] [id number] [address] [place] [address] Jan, [facility] [address] [facility] [id number] [address] [place] [address] Jan, URI, acute J06.9 [facility] [address] [facility] [id number] [address] [place] [phone] 05 Jan, 2018 Neuroforaminal stenosis of s jose M99.89 [facility] [address] [facility] [id number] [address] [place] [phone] 13 Dec, 2017 Lateral epicondylitis, right elbow M77.11 [facility] [address] [facility] [id number] [address] [place] [id number] 11 Dec, 2017 Allergic rhinitis due to monica rosalina, unspecified seasonality J30.1 and Allergic conjunctivitis of both eyes H10.13 [facility] [address] [id number] [address] [place] [id number] 10 Dec, 2017 Neuroforaminal stenosis of s jose M99.89 [facility] [address] [facility] [id number] [address] [place] [id number] 06 Dec, 2017 Mixed hyperlipidemia E78.2 [facility] [address] [facility] [id number] [address] [place] [address] Dec, Abnormal glucose R73.09 ; Ab normal renal ultrasound R93.429 ; Dysuria R30.0 ; Cystitis without hematuria N30.90 ; Hypokalemia E87.6 ; Mixed hyperlipidemia E78.2 and Hematuria, unspecified type R31.9 [place] [address] [id number] [address] [place] [phone] Nov, Hypokalemia E87.6 ; Mixed hy perlipidemia E78.2 and Hematuria, unspecified type R31.9 [place] [address] [id number] [address] [place] [address] Nov, [place] [address] [id number] [address] [place] [phone] Nov, Hypokalemia E87.6 [place] [address] [id number] [address] [place] [phone] Nov, [place] [address] [id number] [address] [place] [address] Nov, Abnormal renal ultrasound R9 3.429 [place] [address] [facility] [id number] [address] [place] [address] Nov, Abnormal renal ultrasound R9 3.429 [place] [address] [id number] [address] [place] [phone] Nov, Hematuria, unspecified type R31.9 and Neuroforaminal stenosis of spine M99.89 [place] [address] [id number] [address] [place] [address] Nov, Dysuria R30.0 [place] [address] [facility] [id number] [address] [place] [phone] Oct, Lateral epicondylitis, right elbow M77.11 [place] [address] [facility] [id number] [address] [place] [address] Oct, Neuroforaminal stenosis of s pine M99.89 ; Visit for TB skin test Z11.1 and Essential hypertension I10 [place] [address] [id number] [address] [place] [phone] Oct, [place] [address] [id number] [address] [place] [phone] Oct, Neuroforaminal stenosis of s pine M99.89 [place] [address] [id number] [address] [place] [address] 10 Oct, 2017 Visit for TB skin test Z11.1 [place] [address] [id number] [address] [place] [address] 05 Oct, 2017 Cystitis without hematuria N 30.90 [place] [address] [id number] [address] [place] [id number] 28 Sep, 2017 Screening breast examination Z12.39 [place] [address] [id number] [address] [place] [address] Sep, Dysuria R30.0 and Cystitis w ithout hematuria N30.90 [place] [address] [id number] [address] [place] [id number] 14 Sep, 2017 Essential hypertension I10 a nd Neuroforaminal stenosis of spine M99.89 [place] [address] [id number] [address] [place] [id number] 04 Sep, 2017 Abnormal glucose R73.09 [place] [address] [id number] [address] [place] [address] August, Lateral epicondylitis, right elbow M77.11 [place] [address] [id number] [address] [place] [phone] August, Screen for STD (sexually tra nsmitted disease) Z11.3 [place] [address] [id number] [address] [place] [address] August, Neuroforaminal stenosis of s pine M99.89 ; Mixed hyperlipidemia E78.2 ; Elevated fasting glucose R73.01 ; Screening mammogram, encounter for Z12.31 and Encounter for well woman exam without gynecological exam Z00.00 [facility] [address] [id number] [address] [place] [id number] August, Neuroforaminal stenosis of s pine M99.89 [facility] [address] [id number] [address] [place] [address] August, Essential hypertension I10 ; Hypokalemia E87.6 and Mixed hyperlipidemia E78.2 [facility] [address] [id number] [address] [place] [address] Jul, [facility] [address] [id number] [address] [place] [phone] Jul, Neuroforaminal stenosis of s jose M99.89 [facility] [address] [id number] [address] [place] [id number] Jul, Lateral epicondylitis, right elbow M77.11 [place] [address] [id number] [address] [place] [address] Jul, [facility] [address] [id number] [address] [place] [phone] Jun, High ankle sprain of right l ower extremity, initial encounter S93.431A [facility] [address] [id number] [address] [place] [address] Jun, Essential hypertension I10 [facility] [address] [id number] [address] [place] [phone] Jun, [facility] [address] [id number] [address] [place] [phone] Jun, [facility] [address] [id number] [address] [place] [id number] Jun, Neuroforaminal stenosis of s pine M99.89 [facility] [address] [id number] [address] [place] [address] Jun, Pain of right upper extremit y M79.601 and Essential hypertension I10 [place] [id number] [place] [address] Jun, [place] [address] [address] Jun, Dysuria R30.0 ; Acute cystit is with hematuria N30.01 and Screen for STD (sexually transmitted disease) Z11.3 [place] [address] [address] May, Chronic pain due to trauma G 89.21 [place] [address] [place] [id number] [address] [place] [address] May, Essential hypertension I10 [place] [address] [address] May, Neuroforaminal stenosis of s pine M99.89 [place] [address] [address] Apr, Allergic reaction, initial e ncounter T78.40XA [place] [address] [address] Apr, Low back pain, unspecified b ack pain laterality, unspecified chronicity, with sciatica presence unspecified M54.5 ; Acute cystitis with hematuria N30.01 ; Neuroforaminal stenosis of spine M99.89 ; Bilateral acute serous otitis media, recurrence not specified H65.03 ; Mixed hyperlipidemia E78.2 ; Essential hypertension I10 ; Immunization counseling Z71.89 and Encounter for immunization Z23 [place] [id number] [place] [address] Apr, Neck pain M54.2 [place] [address] [place] [id number] [place] [address] Mar, Neuroforaminal stenosis of s pine M99.89 [place] [address] [address] Mar, Pharyngitis due to other org anism J02.8 [facility] [address] [id number] [address] [place] [address] Feb, Neuroforaminal stenosis of s jose M99.89 [facility] [address] [id number] [address] [place] [address] 08 Feb, 2017 UTI (urinary tract infection ) N39.0 [facility] [address] [id number] [address] [place] [address] Feb, Recent urinary tract infecti on Z87.440 ; Neuroforaminal stenosis of spine M99.89 ; Neck pain M54.2 ; Chronic pain due to trauma G89.21 and Recurrent UTI N39.0 [facility] [address] [id number] [address] [place] [id number] Feb, [facility] [address] [id number] [address] [place] [address] Jan, Neuroforaminal stenosis of s pine M99.89 [facility] [address] [id number] [address] [place] [address] Dec, Neuroforaminal stenosis of s pine M99.89 [facility] [address] [id number] [address] [place] [phone] 18 Dec, 2016 Acute seasonal allergic rhin itis due to pollen J30.1 [facility] [address] [id number] [address] [place] [address] 08 Dec, 2016 [facility] [address] [id number] [address] [place] [address] 08 Dec, 2016 Acute seasonal allergic rhin itis, unspecified trigger J30.2 ; Allergic conjunctivitis of both eyes H10.13 and Dysfunction of both eustachian tubes H69.83 [facility] [address] [id number] [address] [place] [address] 07 Dec, 2016 [facility] [address] [id number] [address] [place] [address] Dec, Nevus D22.9 [facility] [address] [id number] [address] [place] [address] Nov, Chronic pain due to trauma G 89.21 and Neuroforaminal stenosis of spine M99.89 [facility] [address] [id number] [address] [place] [address] Nov, Neuroforaminal stenosis of s pine M99.89 ; Essential hypertension I10 ; Mixed hyperlipidemia E78.2 ; Hypokalemia E87.6 ; Neck pain M54.2 and Nevus D22.9 [facility] [address] [id number] [address] [place] [address] Oct, Neuroforaminal stenosis of s pine M99.89 [facility] [address] [id number] [address] [place] [address] Sep, Neuroforaminal stenosis of s pine M99.89 [facility] [address] [id number] [address] [place] [address] Sep, [facility] [address] [id number] [address] [place] [address] August, [facility] [address] [id number] [address] [place] [address] August, Neck pain M54.2 and Neurofor aminal stenosis of spine M99.89 [facility] [address] [id number] [address] [place] [address] August, Routine gynecological examin ation Z01.419 and Screening breast examination Z12.39 [facility] [address] [id number] [address] [place] [address] Jul, [facility] [address] [id number] [address] [place] [address] Jul, [facility] [address] [id number] [address] [place] [address] Jul, Neuroforaminal stenosis of s pine M99.89 [facility] [address] [id number] [address] [place] [address] Jul, [facility] [address] [id number] [address] [place] [address] Jul, Neuroforaminal stenosis of l umbar 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 [facility] [address] [id number] [address] [place] [address] Jul, [facility] [address] [id number] [address] [place] [address] Jul, [facility] [address] [id number] [address] [place] [address] Jun, Neuroforaminal stenosis of s pine M99.89 [facility] [address] [facility] [id number] [address] [place] [address] Jun, Uterine leiomyoma, unspecifi ed location D25.9 and Allergic reaction caused by a drug, initial encounter T78.40XA [facility] [address] [facility] [id number] [address] [place] [address] Jun, [facility] [address] [facility] [id number] [address] [place] [address] May, UTI symptoms R39.9 and Pain of right sacroiliac joint M53.3 [facility] [address] [facility] [id number] [address] [place] [address] May, Neuroforaminal stenosis of s jose M99.89 [facility] [address] [facility] [id number] [address] [place] [address] May, [facility] [address] [facility] [id number] [address] [place] [address] May, Acute mucoid otitis media of left ear H65.112 and Acute non- recurrent maxillary sinusitis J01.00 [facility] [address] [facility] [id number] [address] [place] [address] May, Acute bacterial conjunctivit is of both eyes H10.33 ; Left arm pain M79.602 and Hypokalemia E87.6 [facility] [address] [facility] [id number] [address] [place] [address] Apr, [facility] [address] [facility] [id number] [address] [place] [address] Apr, Neuroforaminal stenosis of s pine M99.89 ; Neck pain M54.2 ; Chronic pain due to trauma G89.21 ; Mixed hyperlipidemia E78.2 ; Essential hypertension I10 and Hypokalemia E87.6 [place] [address] [facility] [id number] [address] [place] [address] Mar, Oral candidiasis B37.0 ; Nathaniel roforaminal stenosis of spine M99.89 ; Neck pain M54.2 and Chronic pain due to trauma G89.21 [place] [address] [place] [id number] [address] [place] [address] Feb, [place] [address] [facility] [id number] [address] [place] [phone] Feb, [facility] [address] [facility] [id number] [address] [place] [address] Feb, UTI (urinary tract infection ) N39.0 [place] [address] [place] [id number] [address] [place] [address] Feb, Dysuria R30.0 [place] [address] [facility] [id number] [address] [place] [address] Feb, Dysuria R30.0 [place] [address] [facility] [id number] [address] [place] [id number] 02 Feb, 2016 Neuroforaminal stenosis of s pine M99.89 ; Neck pain M54.2 ; Essential hypertension I10 ; Chronic pain due to trauma G89.21 ; Dysuria R30.0 ; Abnormal MRI, shoulder R93.8 and Acute cystitis without hematuria N30.00 [place] [address] [place] [id number] [address] [place] [address] Jan, [facility] [address] [id number] [address] [place] [address] Jan, [facility] [address] [id number] [address] [place] [id number] Jan, [facility] [address] [id number] [address] [place] [address] Jan, Abnormal MRI R93.8 [facility] [address] [id number] [address] [place] [address] 29 Dec, 2015 [facility] [address] [id number] [address] [place] [address] 15 Dec, 2015 Acute pain of left shoulder M25.512 [facility] [address] [id number] [address] [place] [id number] 09 Dec, 2015 [facility] [address] [id number] [address] [place] [phone] 08 Dec, 2015 [facility] [address] [id number] [address] [place] [address] 07 Dec, 2015 Acute pain of left shoulder M25.512 [facility] [address] [id number] [address] [place] [phone] Nov, [facility] [address] [id number] [address] [place] [id number] 16 Nov, 2015 Neuroforaminal stenosis of s pine M99.89 ; Neck pain M54.2 ; Abnormal mammogram R92.8 ; Essential hypertension I10 and Chronic pain due to trauma G89.21 [facility] [address] [id number] [place] [id number] Nov, [facility] [address] [id number] [place] [id number] Oct, Acute stress disorder F43.0 [facility] [address] [id number] [place] [phone] Oct, [facility] [address] [id number] [address] [place] [id number] Oct, [facility] [address] [id number] [address] [place] [phone] Oct, [facility] [address] [id number] [place] [phone] Sep, [facility] [address] [id number] [place] [id number] August, [facility] [address] [id number] [place] [id number] Jul, Neuroforaminal stenosis of s pine M99.89 ; Neck pain M54.2 ; Abnormal mammogram R92.8 and Essential hypertension I10 [facility] [address] [id number] [place] [id number] Jul, [facility] [address] [id number] [address] [place] [id number] Jul, [facility] [address] [id number] [address] [place] [id number] Jul, Abnormal mammogram R92.8 [facility] [address] [id number] [address] [place] [id number] Jul, [facility] [address] [id number] [place] [id number] Jul, UTI (urinary tract infection ) N39.0 [facility] [address] [id number] [address] [place] [phone] Jul, Dysuria R30.0 [facility] [address] [id number] [address] [place] [id number] Jun, [facility] [address] [id number] [address] [place] [id number] Jun, [facility] [address] [id number] [address] [place] [id number] Jun, Hypokalemia E87.6 and Hematu martina R31.9 [facility] [place] [address] [address] [facility] [id number] [address] [place] [address] Jun, Hypokalemia E87.6 [place] [address] [address] [facility] [id number] [address] [place] [address] Jun, [place] [address] [address] [facility] [id number] [address] [place] [address] Jun, Hypokalemia E87.6 [place] [address] [address] [facility] [id number] [address] [place] [address] Jun, Hypokalemia E87.6 [place] [address] [address] [facility] [id number] [address] [place] [address] Jun, Neuroforaminal stenosis of s pine M99.89 ; Hypokalemia E87.6 ; Neck pain M54.2 ; Essential hypertension I10 ; Mixed hyperlipidemia E78.2 and Screening breast examination Z12.39 [place] [address] [address] [place] [id number] [address] [place] [address] Jun, Dysuria R30.0 ; UTI (urinary tract infection) N39.0 and Hematuria R31.9 [place] [address] [address] [facility] [id number] [address] [place] [address] May, [place] [address] [address] [facility] [id number] [address] [place] [address] May, High risk sexual behavior Z7 2.51 ; Hypokalemia E87.6 ; Neuroforaminal stenosis of spine M99.89 ; Neck pain M54.2 ; Essential hypertension I10 ; Mixed hyperlipidemia E78.2 ; STD exposure Z20.2 and Concern about STD in female without diagnosis Z71.1 [place] [address] [address] [facility] [id number] [address] [place] [address] 16 May, 2015 Neuroforaminal stenosis of s pine M99.89 ; Neck pain M54.2 ; Hypokalemia E87.6 ; Essential hypertension I10 and Mixed hyperlipidemia E78.2 [facility] [address] [address] May, [facility] [address] [facility] [id number] [address] [place] [address] 08 May, 2015 High risk sexual behavior Z7 2.51 ; STD exposure Z20.2 and Concern about STD in female without diagnosis Z71.1 [facility] [address] [address] May, [facility] [address] [address] Apr, Neuroforaminal stenosis of s pine M99.89 ; Mixed hyperlipidemia E78.2 ; Essential hypertension I10 and Hypokalemia E87.6 [place] [address] [address] Mar, [facility] [address] [address] Mar, Hypokalemia E87.6 [place] [address] [address] Mar, Neuroforaminal stenosis of s pine M99.89 ; Mixed hyperlipidemia E78.2 ; Neck pain M54.2 ; Essential hypertension I10 ; Abnormal fasting glucose R73.09 ; Hypokalemia E87.6 and Constipation K59.00 [facility] [id number] [place] [address] Feb, Neuroforaminal stenosis of s pine M99.89 ; Mixed hyperlipidemia E78.2 ; Neck pain M54.2 ; Essential hypertension I10 ; Abnormal fasting glucose R73.09 ; Hypokalemia E87.6 and Constipation K59.00 [place] [address] [address] [place] [id number] [address] [place] [address] Feb, Elevated fasting blood sugar R73.01 [facility] [address] [id number] [address] [place] [address] Feb, Elevated fasting blood sugar R73.01 [facility] [address] [id number] [address] [place] [address] Feb, Hair loss L65.9 [facility] [address] [facility] [id number] [address] [place] [address] Feb, Sinusitis J32.9 ; Essential hypertension I10 and Hair loss L65.9 [place] [address] [id number] [address] [place] [address] Jan, [place] [address] [address] [facility] [id number] [address] [place] [address] Jan, Essential hypertension I10 ; Neuroforaminal stenosis of spine M99.89 ; Neck pain M54.2 ; Mixed hyperlipidemia E78.2 and Anxiety F41.9 [place] [address] [address] [facility] [id number] [address] [place] [address] Jan, [place] [address] [address] [facility] [id number] [address] [place] [address] Jan, Mixed hyperlipidemia E78.2 ; Essential (primary) hypertension I10 ; Strain of muscle, fascia and tendon at neck level, subsequent encounter S16.1XXD and Tension-type headache, unspecified, not intractable G44.209 [place] [address] [address] [facility] [id number] [address] [place] [address] Dec, Lumbar back pain 724.2 and N euroforaminal stenosis of spine 724.00 [place] [address] [id number] [address] [place] [address] Nov, [place] [address] [address] [facility] [id number] [address] [place] [address] Nov, Lumbar back pain 724.2 and N euroforaminal stenosis of spine 724.00 [place] [address] [address] [facility] [id number] [address] [place] [address] Nov, Edema 782.3 ; Lumbar back pa in 724.2 ; Essential hypertension, benign 401.1 ; Hyperlipemia 272.4 ; Neuroforaminal stenosis of spine 724.00 and Post-concussion headache 339.20 [facility] [address] [id number] [address] [place] [address] Nov, [facility] [address] [id number] [address] [place] [address] Nov, [facility] [address] [id number] [address] [place] [address] Oct, Essential hypertension, [place] gn 401.1 [facility] [address] [id number] [address] [place] [address] Oct, Edema 782.3 ; Lumbar back pa in 724.2 ; Essential hypertension, benign 401.1 ; Hyperlipemia 272.4 ; Neuroforaminal stenosis of spine 724.00 and Post-concussion headache 339.20 [facility] [address] [id number] [address] [place] [address] Oct, [facility] [address] [id number] [address] [place] [address] Oct, Edema 782.3 [facility] [address] [id number] [address] [place] [address] Oct, Lumbar back pain 724.2 [facility] [address] [id number] [address] [place] [address] Oct, Cervicalgia 723.1 ; Lumbar b ack pain 724.2 and High risk medication use V58.69 [facility] [address] [id number] [address] [place] [address] Sep, [facility] [address] [id number] [address] [place] [address] Sep, Lumbar strain 847.2 [facility] [address] [id number] [address] [place] [address] August, Edema 782.3 and Eustachian t ube dysfunction 381.81 [facility] [address] [facility] [id number] [address] [place] [address] August, [facility] [address] [facility] [id number] [address] [place] [address] August, Eustachian tube dysfunction 381.81 [facility] [address] [facility] [id number] [address] [place] [address] Jul, Otalgia 388.70 and Otitis me jonathon 382.9 [facility] [address] [facility] [id number] [address] [place] [address] Jul, [facility] [address] [facility] [id number] [address] [place] [address] Jul, [facility] [address] [place] [id number] [address] [place] [address] Jul, [facility] [address] [facility] [id number] [address] [place] [address] Jul, [facility] [address] [facility] [id number] [address] [place] [address] Jul, [facility] [address] [facility] [id number] [address] [place] [address] Jun, [facility] [address] [facility] [id number] [address] [place] [address] Jun, [facility] [address] [facility] [id number] [address] [place] [address] Jun, [facility] [address] [facility] [id number] [address] [place] [address] May, [facility] [address] [facility] [id number] [address] [place] [address] May, [facility] [address] [facility] [id number] [address] [place] [address] May, [facility] [address] [id number] [address] [place] [address], [place] [address] May, [facility] [address] [id number] [address] [place] [address], [place] [address] May, [facility] [address] [id number] [address] [place] [address], [place] [address] May, 2014 [facility] [address] [id number] [address] [place] [address], [place] [address] May, [facility] [address] [id number] [address] [place] [address], [place] [address] May, [facility] [address] [id number] [address] [place] [address], [place] [address] May, [facility] [address] [id number] [address] [place] [address], [place] [address] May, [facility] [address] [id number] [address] [place] [address], [place] [address] Apr, [facility] [address] [id number] [address] [place] [address], [place] [address] Apr, [facility] [address] [id number] [address] [place] [address], [place] [address] Apr, [facility] [address] [id number] [address] [place] [address], [place] [address] Apr, [facility] [address] [id number] [address] [place] [address], [place] [address] Apr, [facility] [address] [id number] [address] [place] [address], [place] [address] Apr, [facility] [address] [id number] [address] [place] [address], [place] [address] Apr, [facility] [address] [id number] [address] [place] [address], [place] [address] Apr, [facility] [address] [id number] [address] [place] [address], [place] [address] Apr, [facility] [address] [id number] [address] [place] [address], [place] [address] Apr, [facility] [address] [id number] [address] [place] [address], [place] [address] Apr, [facility] [address] [id number] [address] [place] [address], [place] [address] Apr, [facility] [address] [id number] [address] [place] [address], [place] [address] Apr, [facility] [address] [id number] [address] [place] [address], [place] [address] Apr, [facility] [address] [id number] [address] [place] [address], [place] [address] Apr, [facility] [address] [id number] [address] [place] [address], [place] [address] Mar, [facility] [address] [id number] [address] [place] [address], [place] [address] Mar, [facility] [address] [id number] [address] [place] [address], [place] [address] Mar, [facility] [address] [id number] [address] [place] [address], [place] [address] Mar, [facility] [address] [id number] [address] [place] [address], [place] [address] Feb, [facility] [address] [id number] [address] [place] [address], [place] [address] Feb, [facility] [address] [id number] [address] [place] [address], [place] [address] Feb, [facility] [address] [id number] [address] [place] [address], [place] [address] Feb, [facility] [address] [id number] [address] [place] [address], [place] [address] Jan, [facility] [address] [id number] [address] [place] [address], [place] [address] Jan, [facility] [address] [id number] [address] [place] [address], [place] [address] Jan, [facility] [address] [id number] [address] [place] [address], [place] [address] Jan, [facility] [address] [id number] [address] [place] [address], [place] [address] Jan, [facility] [address] [id number] [address] [place] [address], [place] [address] Jan, [facility] [address] [id number] [address] [place] [address], [place] [address] Jan, [facility] [address] [id number] [address] [place] [address], [place] [address] Jan, [facility] [address] [id number] [address] [place] [address], [place] [address] Dec, 2013 [facility] [address] [id number] [address] [place] [address], [place] [address] 29 Dec, 2013 [facility] [address] [id number] [address] [place] [address], [place] [address] Dec, [facility] [address] [id number] [address] [place] [address], [place] [address] Dec, [facility] [address] [id number] [address] [place] [address] Oct, [facility] [address] [id number] [address] [place] [address], [place] [address] Oct, [facility] [address] [id number] [address] [place] [address], [place] [address] Oct, [facility] [address] [id number] [address] [place] [address], [place] [address] Oct, [facility] [address] [id number] [address] [place] [address], [place] [address] Oct, [facility] [address] [id number] [address] [place] [address], [place] [address] Oct, [facility] [address] [id number] [address] [place] [address], [place] [address] Oct, [facility] [address] [id number] [address] [place] [address], [place] [address] Oct, [facility] [address] [id number] [address] [place] [address], [place] [address] Sep, [facility] [address] [id number] [address] [place] [address], [place] [address] Sep, [facility] [address] [id number] [address] [place] [address], [place] [address] Sep, [facility] [address] [id number] [address] [place] [address], [place] [address] Sep, [facility] [address] [id number] [address] [place] [address], [place] [address] Sep, [facility] [address] [id number] [address] [place] [address], [place] [address] Sep, [facility] [address] [id number] [address] [place] [address], [place] [address] Sep, [facility] [address] [id number] [address] [place] [address], [place] [address] Sep, [facility] [address] [id number] [address] [place] [address], [place] [address] Sep, [facility] [address] [id number] [address] [place] [address], [place] [address] Sep, [facility] [address] [id number] [address] [place] [address], [place] [address] August, [facility] [address] [id number] [address] [place] [address], [place] [address] August, [facility] [address] [id number] [facility] [place] [address] August, [facility] [address] [id number] [facility] [place] [address] August, [facility] [address] [id number] [facility] [place] [address] August, [facility] [address] [id number] [address] [place] [address], [place] [address] August, [facility] [address] [id number] [address] [place] [address], [place] [address] August, [facility] [address] [id number] [address] [place] [address], [place] [address] August, [facility] [address] [id number] [address] [place] [address], [place] [address] August, [facility] [address] [id number] [address] [place] [address], [place] [address] August, [facility] [address] [id number] [address] [place] [address], [place] [address] August, [facility] [address] [id number] [address] [place] [address], [place] [address] August, [facility] [address] [id number] [address] [place] [address], [place] [address] Jul, [facility] [address] [id number] [address] [place] [address], [place] [address] Jul, [facility] [address] [id number] [address] [place] [address], [place] [address] Jul, [facility] [address] [id number] [address] [place] [address], [place] [address] Jul, [facility] [address] [id number] [address] [place] [address], [place] [address] Jul, [facility] [address] [id number] [address] [place] [address], [place] [address] Jul, [facility] [address] [id number] [facility] [place] [address] Jun, [facility] [address] [id number] [facility] [place] [address] Jun, [facility] [address] [id number] [facility] [place] [address] May, [facility] [address] [id number] [address] [place] [address], [place] [address] May, [facility] [address] [id number] [address] [place] [address], [place] [address] Apr, [facility] [address] [id number] [address] [place] [address], [place] [address] Apr, [facility] [address] [id number] [address] [place] [address], [place] [address] Apr, [facility] [address] [id number] [address] [place] [address], [place] [address] Apr, [facility] [address] [id number] [address] [place] [address], [place] [address] Apr, [facility] [address] [id number] [address] [place] [address], [place] [address] Apr, [facility] [address] [id number] [address] [place] [address], [place] [address] Apr, [facility] [address] [id number] [address] [place] [address], [place] [address] Apr, [facility] [address] [id number] [address] [place] [address], [place] [address] Apr, [facility] [address] [id number] [address] [place] [address], [place] [address] Apr, [facility] [address] [id number] [address] [place] [address], [place] [address] Apr, [facility] [address] [id number] [address] [place] [address], [place] [address] Apr, [facility] [address] [id number] [address] [place] [address], [place] [address] Apr, [facility] [address] [id number] [address] [place] [address], [place] [address] Mar, [facility] [address] [id number] [address] [place] [address], [place] [address] Mar, [facility] [address] [id number] [address] [place] [address], [place] [address] Mar, [facility] [address] [id number] [address] [place] [address], [place] [address] Mar, [facility] [address] [id number] [address] [place] [address], [place] [address] Feb, [facility] [address] [id number] [address] [place] [address], [place] [address] Feb, [facility] [address] [id number] [address] [place] [address], [place] [address] Feb, [facility] [address] [id number] [address] [place] [address], [place] [address] Feb, [facility] [address] [id number] [address] [place] [address], [place] [address] 14 Jan, 2013 [facility] [address] [id number] [address] [place] [address], [place] [address] 14 Jan, 2013 [facility] [address] [id number] [address] [place] [address], [place] [address] 11 Jan, 2013 [facility] [address] [id number] [address] [place] [address], [place] [address] 11 Jan, 2013 [facility] [address] [id number] [address] [place] [address], [place] [address] 10 Jan, 2013 [facility] [address] [id number] [address] [place] [address], [place] [address] Jan, [facility] [address] [id number] [address] [place] [address], [place] [address] Jan, [facility] [address] [id number] [address] [place] [address], [place] [address] Jan, [facility] [address] [id number] [address] [place] [address], [place] [address] Jan, [facility] [address] [id number] [address] [place] [address], [place] [address] Dec, [facility] [address] [id number] [address] [place] [address], [place] [address] 16 Dec, 2012 [facility] [address] [id number] [address] [place] [address], [place] [address] Dec, [facility] [address] [id number] [address] [place] [address], [place] [address] Dec, [facility] [address] [id number] [address] [place] [address], [place] [address] Nov, [facility] [address] [id number] [address] [place] [address], [place] [address] Nov, [facility] [address] [id number] [address] [place] [address], [place] [address] Nov, [facility] [address] [id number] [address] [place] [address], [place] [address] Nov, [facility] [address] [id number] [address] [place] [address], [place] [address] Oct, [facility] [address] [id number] [address] [place] [address], [place] [address] Sep, [facility] [address] [id number] [address] [place] [address], [place] [address] August, [facility] [address] [id number] [address] [place] [address], [place] [address] August, [facility] [address] [id number] [address] [place] [address], [place] [address] August, [facility] [address] [id number] [address] [place] [address], [place] [address] August, [facility] [address] [id number] [address] [place] [address], [place] [address] August, [facility] [facility] [address] [id number] [address] [place] [address], [place] [address] August, [facility] [address] [id number] [address] [place] [address], [place] [address] August, [facility] [address] [id number] [address] [place] [address], [place] [address] August, [facility] [address] [id number] [address] [place] [address], [place] [address] August, [facility] [address] [id number] [address] [place] [address], [place] [address] August, [facility] [address] [id number] [address] [place] [address], [place] [address] August, [facility] [address] [id number] [address] [place] [address], [place] [address] August, [facility] [address] [id number] [address] [place] [address], [place] [address] Jul, [facility] [address] [id number] [address] [place] [address], [place] [address] Jul, [facility] [address] [id number] [address] [place] [address], [place] [address] 18 Jul, 2012 [facility] [address] [id number] [address] [place] [address], [place] [address] 15 Jul, 2012 [facility] [address] [id number] [address] [place] [address], [place] [address] Jul, [facility] [address] [id number] [address] [place] [address], [place] [address] 08 Jul, 2012 [facility] [address] [id number] [address] [place] [address], [place] [address] Jul, [facility] [address] [id number] [address] [place] [address], [place] [address] Jul, [facility] [address] [id number] [address] [place] [address], [place] [address] Jul, [facility] [address] [id number] [address] [place] [address], [place] [address] Jul, [facility] [address] [id number] [address] [place] [address], [place] [address] Jul, [facility] [address] [id number] [address] [place] [address], [place] [address] Jun, [facility] [address] [id number] [address] [place] [address], [place] [address] Jun, [facility] [address] [id number] [address] [place] [address], [place] [address] Jun, [facility] [address] [id number] [address] [place] [address], [place] [address] Jun, [facility] [address] [id number] [address] [place] [address], [place] [address] May, [facility] [address] [id number] [address] [place] [address], [place] [address] 14 May, 2012 [facility] [address] [id number] [address] [place] [address], [place] [address] 05 May, 2012 [facility] [address] [id number] [address] [place] [address], [place] [address] May, [facility] [address] [id number] [address] [place] [address], [place] [address] May, [facility] [address] [id number] [address] [place] [address], [place] [address] May, [facility] [address] [id number] [address] [place] [address], [place] [address] 31 Apr, 2012 [facility] [address] [id number] [address] [place] [address], [place] [address] 31 Apr, 2012 [facility] [address] [id number] [address] [place] [address], [place] [address] 30 Apr, 2012 [facility] [address] [id number] [address] [place] [address], [place] [address] 28 Apr, 2012 [facility] [address] [id number] [address] [place] [address], [place] [address] 15 Mar, 2012 [facility] [address] [id number] [address] [place] [address], [place] [address] 14 Mar, 2012 [facility] [address] [id number] [address] [place] [address], [place] [address] 14 Mar, 2012 [facility] [address] [id number] [address] [place] [address], [place] [address] 14 Mar, 2012 [facility] [address] [id number] [address] [place] [address], [place] [address] 14 Mar, 2012 [facility] [address] [id number] [address] [place] [address], [place] [address] 06 Mar, 2012 [facility] [address] [id number] [address] [place] [address], [place] [address] 06 Mar, 2012 [facility] [address] [id number] [address] [place] [address], [place] [address] Feb, [facility] [address] [id number] [address] [place] [address], [place] [address] Feb, [facility] [address] [id number] [address] [place] [address], [place] [address] Feb, [facility] [address] [id number] [address] [place] [address], [place] [address] Feb, [facility] [address] [id number] [address] [place] [address], [place] [address] Jan, [facility] [address] [id number] [address] [place] [address], [place] [address] Jan, [facility] [address] [id number] [address] [place] [address], [place] [address] Jan, [facility] [address] [id number] [address] [place] [address], [place] [address] Jan, [facility] [address] [id number] [address] [place] [address], [place] [address] Jan, [facility] [address] [id number] [address] [place] [address], [place] [address] Jan, [facility] [address] [id number] [address] [place] [address], [place] [address] Dec, [facility] [address] [id number] [address] [place] [address], [place] [address] Dec, [facility] [address] [id number] [address] [place] [address], [place] [address] Nov, [facility] [address] [id number] [address] [place] [address], [place] [address] Sep, [facility] [address] [id number] [address] [place] [address], [place] [address] August, [facility] [address] [id number] [address] [place] [address], [place] [address] August, [facility] [address] [id number] [address] [place] [address], [place] [address] August, [facility] [address] [id number] [address] [place] [address], [place] [address] August, [facility] [address] [id number] [address] [place] [address], [place] [address] August, [facility] [address] [id number] [address] [place] [address], [place] [address] Jun, [facility] [address] [id number] [address] [place] [address], [place] [address] Jun, [facility] [address] [id number] [address] [place] [address], [place] [address] Apr, [facility] [address] [id number] [address] [place] [address], [place] [address] Apr, [facility] [address] [id number] [address] [place] [address], [place] [address] Mar, [facility] [address] [id number] [address] [place] [address], [place] [address] Feb, [facility] [address] [id number] [address] [place] [address], [place] [address] Feb, [facility] [address] [id number] [address] [place] [address], [place] [address] Feb, [facility] [address] [id number] [address] [place] [address], [place] [address] 17 Jan, 2011 [facility] [address] [id number] [address] [place] [address] 15 Jan, 2011 [facility] [address] [id number] [address] [place] [address], [place] [address] 15 Jan, 2011 [facility] [address] [id number] [address] [place] [address] 14 Jan, 2011 [facility] [address] [id number] [address] [place] [address] 15 May, 2010 [facility] [address] [id number] [address] [place] [address] Mar, [facility] [address] [id number] [address] [place] [address], [place] [address] Oct, [facility] [address] [id number] [address] [place] [id number] Sep, [facility] [address] [id number] [address] [place] [address] Mar, [facility] [address] [id number] [address] [place] [address] Jan, [facility] [address] [facility] [id number] [address] [place] [address] Jan, [facility] [address] [facility] [id number] [address] [place] [address] May, IMMUNIZATIONS No Known Immunizations SOCIAL HISTORY Never Assessed REASON FOR VISIT PLAN OF CARE VITAL SIGNS Height 62 in 2013-10-18 Weight 181.01 lbs 2013-10-18 Temperature 97 degrees Fahrenheit 2013-10-18 Heart Rate 84 bpm 2013-10-18 Respiratory Rate 18 2013-10-18 Blood pressure systolic 122 mmHg 2013-10-18 Blood pressure diastolic 86 mmHg 2013-10-18 MEDICATIONS Unknown Medications RESULTS No Results PROCEDURES [...]
--- OUTSIDE RECORDS SUMMARY | 2019-11-23 05:52 | XMS REPORT ---
Author Author Liana Coe Doctor Organization [facility] Address Unknown Phone Unavailable Care Team Providers Care Unpaid Intern Name Role Phone Migration, Doctor Unavailable Unavailable PROBLEMS Type Condition ICD9-CM Code OFZ52-VD Code Onset Dates Condition S tatus SNOMED Code Problem Hematuria, unspecified type R31.9 Ac tive 07545008 Problem Abnormal renal ultrasound R93.429 Acti ve [id number] Problem Anxiety F41.9 Active 32812816 Problem Hypokalemia E87.6 Active 53038837 Problem Abnormal glucose R73.09 Active 102 086771 Problem Chronic pain due to trauma G89.21 Act juanis [id number] Problem Neuroforaminal stenosis of spine M99.89 Active 540337879376 Problem Neck pain M54.2 Active 83144604 Problem Essential hypertension I10 Active 69400225 Problem Mixed hyperlipidemia E78.2 Active 52143207 ALLERGIES No Information ENCOUNTERS Encounter Location Date Diagnosis [facility] [address] [facility] [id number] [address] [place] [phone] Dec, Neuroforaminal stenosis of s pine M99.89 [facility] [address] [facility] [id number] [address] [place] [phone] Nov, [facility] [address] [facility] [id number] [address] [place] [phone] Nov, Neuroforaminal stenosis of s pine M99.89 [facility] [address] [facility] [id number] [address] [place] [phone] Nov, Acute non-recurrent maxillar y sinusitis J01.00 [facility] [address] [facility] [id number] [address] [place] [phone] Oct, Hypokalemia E87.6 [facility] [address] [facility] [id number] [address] [place] [phone] Oct, Wasp sting, undetermined int ent, initial encounter T63.464A and Cellulitis of left lower extremity L03.116 [place] [address] [id number] [address] [place] [phone] Oct, Neuroforaminal stenosis of s pine M99.89 [place] [address] [id number] [address] [place] [phone] Sep, [place] [address] [id number] [address] [place] [phone] Sep, [place] [address] [id number] [address] [place] [phone] 18 Sep, 2018 Routine screening for STI (s exually transmitted infection) Z11.3 [place] [address] [id number] [address] [place] [phone] 14 Sep, 2018 Routine screening for STI (s exually transmitted infection) Z11.3 ; Well woman exam with routine gynecological exam Z01.419 and Breast cancer screening Z12.39 [place] [address] [id number] [address] [place] [address] Sep, Neuroforaminal stenosis of s pine M99.89 [place] [address] [id number] [address] [place] [phone] August, Neuroforaminal stenosis of s pine M99.89 [place] [address] [id number] [address] [place] [phone] August, Neuroforaminal stenosis of s pine M99.89 ; Chronic pain due to trauma G89.21 and Mixed hyperlipidemia E78.2 [place] [address] [id number] [address] [place] [phone] 16 Jul, 2018 Viral upper respiratory illn ess J06.9 and Acute non-recurrent frontal sinusitis J01.10 [place] [address] [id number] [address] [place] [phone] 15 Jul, 2018 Congestion of nasal sinus R0 9.81 [place] [address] [facility] [id number] [address] [place] [phone] Jul, Neuroforaminal stenosis of s pine M99.89 and Essential hypertension I10 [facility] [address] [facility] [id number] [address] [place] [phone] May, Neuroforaminal stenosis of s pine M99.89 [facility] [address] [id number] [address] [place] [phone] May, [facility] [address] [facility] [id number] [address] [place] [phone] May, Congestion of nasal sinus R0 9.81 [place] [address] [facility] [id number] [address] [place] [address] May, [place] [address] [facility] [id number] [address] [place] [address] Apr, Neuroforaminal stenosis of s pine M99.89 [place] [address] [facility] [id number] [address] [place] [address] Apr, Neuroforaminal stenosis of s pine M99.89 and Chronic pain due to trauma G89.21 [place] [address] [facility] [id number] [address] [place] [phone] Mar, UTI (urinary tract infection ) N39.0 [place] [address] [facility] [id number] [address] [place] [address] Mar, Vertigo R42 [place] [address] [facility] [id number] [address] [place] [phone] Mar, Neuroforaminal stenosis of s pine M99.89 [facility] [address] [facility] [id number] [address] [place] [address] Feb, Extensor tendon disruption M 67.89 [facility] [address] [facility] [id number] [address] [place] [phone] Feb, Neuroforaminal stenosis of s pine M99.89 and High risk medication use Z79.899 [place] [address] [place] [id number] [address] [place] [address] Jan, Hypokalemia E87.6 [place] [address] [phone] Jan, Flank pain R10.9 and Acute r ight-sided low back pain without sciatica M54.5 [place] [address] [address] Jan, Hypokalemia E87.6 [place] [address] [place] [id number] [place] [address] Jan, [place] [address] [address] Jan, URI, acute J06.9 [place] [address] [address] Jan, Neuroforaminal stenosis of s pine M99.89 [place] [address] [phone] 13 Dec, 2017 Lateral epicondylitis, right elbow M77.11 [place] [address] [address] 11 Dec, 2017 Allergic rhinitis due to monica rosalina, unspecified seasonality J30.1 and Allergic conjunctivitis of both eyes H10.13 [place] [address] [address] 10 Dec, 2017 Neuroforaminal stenosis of s pine M99.89 [place] [address] [address] 06 Dec, 2017 Mixed hyperlipidemia E78.2 [place] [address] [place] [id number] [place] [phone] 05 Dec, 2017 Abnormal glucose R73.09 ; Ab normal renal ultrasound R93.429 ; Dysuria R30.0 ; Cystitis without hematuria N30.90 ; Hypokalemia E87.6 ; Mixed hyperlipidemia E78.2 and Hematuria, unspecified type R31.9 [place] [address] [facility] [id number] [address] [place] [phone] Nov, Hypokalemia E87.6 ; Mixed hy perlipidemia E78.2 and Hematuria, unspecified type R31.9 [place] [address] [place] [id number] [address] [place] [phone] Nov, [place] [address] [facility] [id number] [address] [place] [phone] Nov, Hypokalemia E87.6 [place] [address] [place] [id number] [place] [phone] Nov, [place] [address] [place] [id number] [place] [address] Nov, Abnormal renal ultrasound R9 3.429 [place] [address] [place] [id number] [address] [place] [address] Nov, Abnormal renal ultrasound R9 3.429 [place] [address] [address] Nov, Hematuria, unspecified type R31.9 and Neuroforaminal stenosis of spine M99.89 [place] [address] [place] [id number] [address] [place] [phone] Nov, Dysuria R30.0 [place] [address] [place] [id number] [address] [place] [phone] Oct, Lateral epicondylitis, right elbow M77.11 [place] [address] [place] [id number] [address] [place] [phone] Oct, Neuroforaminal stenosis of s pine M99.89 ; Visit for TB skin test Z11.1 and Essential hypertension I10 [place] [address] [place] [id number] [address] [place] [address] Oct, [place] [address] [id number] [address] [place] [phone] 12 Oct, 2017 Neuroforaminal stenosis of s pine M99.89 [place] [address] [id number] [address] [place] [phone] 10 Oct, 2017 Visit for TB skin test Z11.1 [place] [address] [id number] [address] [place] [phone] 05 Oct, 2017 Cystitis without hematuria N 30.90 [place] [address] [id number] [address] [place] [phone] 28 Sep, 2017 Screening breast examination Z12.39 [place] [address] [id number] [address] [place] [phone] 26 Sep, 2017 Dysuria R30.0 and Cystitis w ithout hematuria N30.90 [place] [address] [id number] [address] [place] [phone] 14 Sep, 2017 Essential hypertension I10 a nd Neuroforaminal stenosis of spine M99.89 [place] [address] [id number] [address] [place] [phone] 04 Sep, 2017 Abnormal glucose R73.09 [place] [address] [facility] [id number] [address] [place] [phone] August, Lateral epicondylitis, right elbow M77.11 [place] [address] [facility] [id number] [address] [place] [phone] August, Screen for STD (sexually tra nsmitted disease) Z11.3 [place] [address] [id number] [address] [place] [address] August, Neuroforaminal stenosis of s pine M99.89 ; Mixed hyperlipidemia E78.2 ; Elevated fasting glucose R73.01 ; Screening mammogram, encounter for Z12.31 and Encounter for well woman exam without gynecological exam Z00.00 [place] [address] [id number] [address] [place] [address] August, Neuroforaminal stenosis of s jose M99.89 [facility] [address] [id number] [address] [place] [address] August, Essential hypertension I10 ; Hypokalemia E87.6 and Mixed hyperlipidemia E78.2 [facility] [address] [id number] [address] [place] [address] Jul, [facility] [address] [id number] [address] [place] [phone] Jul, Neuroforaminal stenosis of s jose M99.89 [facility] [address] [id number] [address] [place] [address] Jul, Lateral epicondylitis, right elbow M77.11 [facility] [address] [id number] [address] [place] [phone] Jul, [facility] [address] [id number] [address] [place] [address] Jun, High ankle sprain of right l ower extremity, initial encounter S93.431A [facility] [address] [id number] [address] [place] [address] Jun, Essential hypertension I10 [facility] [address] [id number] [address] [place] [phone] Jun, [facility] [address] [id number] [address] [place] [phone] Jun, [facility] [address] [id number] [address] [place] [address] Jun, Neuroforaminal stenosis of s jose M99.89 [facility] [address] [id number] [address] [place] [address] Jun, Pain of right upper extremit y M79.601 and Essential hypertension I10 [facility] [address] [id number] [address] [place] [phone] Jun, [facility] [id number] [place] [phone] Jun, Dysuria R30.0 ; Acute cystit is with hematuria N30.01 and Screen for STD (sexually transmitted disease) Z11.3 [place] [id number] [place] [address] May, Chronic pain due to trauma G 89.21 [place] [address] [address] May, Essential hypertension I10 [address] [address] May, Neuroforaminal stenosis of s jose M99.[address] [address] Apr, Allergic reaction, initial e ncounter T78.40XA [address] [address] Apr, Low back pain, unspecified b ack pain laterality, unspecified chronicity, with sciatica presence unspecified M54.5 ; Acute cystitis with hematuria N30.01 ; Neuroforaminal stenosis of spine M99.89 ; Bilateral acute serous otitis media, recurrence not specified H65.03 ; Mixed hyperlipidemia E78.2 ; Essential hypertension I10 ; Immunization counseling Z71.89 and Encounter for immunization Z23 [address] [address] Apr, Neck pain M54.[address] [address] Mar, Neuroforaminal stenosis of s pine M99.89 [place] [address] [address] Mar, Pharyngitis due to other org anism J02.[address] [address] Feb, Neuroforaminal stenosis of s pine M99.89 [facility] [address] [id number] [address] [place] [address] Feb, UTI (urinary tract infection ) N39.0 [facility] [address] [id number] [address] [place] [address] Feb, Recent urinary tract infecti on Z87.440 ; Neuroforaminal stenosis of spine M99.89 ; Neck pain M54.2 ; Chronic pain due to trauma G89.21 and Recurrent UTI N39.0 [facility] [address] [id number] [address] [place] [phone] Feb, [facility] [address] [id number] [address] [place] [address] Jan, Neuroforaminal stenosis of s pine M99.89 [facility] [address] [id number] [address] [place] [address] Dec, Neuroforaminal stenosis of s pine M99.89 [facility] [address] [id number] [address] [place] [address] Dec, Acute seasonal allergic rhin itis due to pollen J30.1 [facility] [address] [id number] [address] [place] [phone] Dec, [facility] [address] [id number] [address] [place] [phone] Dec, Acute seasonal allergic rhin itis, unspecified trigger J30.2 ; Allergic conjunctivitis of both eyes H10.13 and Dysfunction of both eustachian tubes H69.83 [facility] [address] [id number] [address] [place] [address] Dec, [facility] [address] [id number] [address] [place] [address] Dec, Nevus D22.9 [facility] [address] [id number] [address] [place] [address] Nov, Chronic pain due to trauma G 89.21 and Neuroforaminal stenosis of spine M99.89 [facility] [address] [id number] [address] [place] [address] Nov, Neuroforaminal stenosis of s pine M99.89 ; Essential hypertension I10 ; Mixed hyperlipidemia E78.2 ; Hypokalemia E87.6 ; Neck pain M54.[address] [facility] [address] [id number] [address] [place] [address] Oct, Neuroforaminal stenosis of s pine M99.89 [facility] [address] [id number] [address] [place] [address] Sep, Neuroforaminal stenosis of s pine M99.89 [facility] [address] [id number] [address] [place] [phone] Sep, [facility] [address] [id number] [address] [place] [phone] August, [facility] [address] [id number] [address] [place] [address] August, Neck pain M54.2 and Neurofor aminal stenosis of spine M99.89 [facility] [address] [id number] [address] [place] [address] August, Routine gynecological examin ation Z01.419 and Screening breast examination Z12.39 [facility] [address] [id number] [address] [place] [address] Jul, [facility] [address] [id number] [address] [place] [address] Jul, [facility] [address] [id number] [address] [place] [address] Jul, Neuroforaminal stenosis of s pine M99.89 [facility] [address] [id number] [address] [place] [address] Jul, [facility] [address] [facility] [id number] [address] [place] [address] Jul, Neuroforaminal stenosis of l umbar 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 [facility] [address] [facility] [id number] [address] [place] [address] Jul, [facility] [address] [place] [id number] [address] [place] [address] Jul, [facility] [address] [facility] [id number] [address] [place] [address] Jun, Neuroforaminal stenosis of s jose M99.89 [place] [address] [place] [id number] [address] [place] [address] Jun, Uterine leiomyoma, unspecifi ed location D25.9 and Allergic reaction caused by a drug, initial encounter T78.40XA [place] [address] [place] [address] Jun, [place] [address] [facility] [id number] [address] [place] [address] May, UTI symptoms R39.9 and Pain of right sacroiliac joint M53.3 [place] [address] [place] [id number] [address] [place] [address] May, Neuroforaminal stenosis of s jose M99.89 [place] [id number] [place] [address] May, [place] [address] [place] [id number] [address] [place] [phone] May, Acute mucoid otitis media of left ear H65.112 and Acute non- recurrent maxillary sinusitis J01.00 [place] [address] [place] [id number] [address] [place] [address] May, Acute bacterial conjunctivit is of both eyes H10.33 ; Left arm pain M79.602 and Hypokalemia E87.6 [place] [address] [place] [id number] [address] [place] [phone] Apr, [place] [address] [facility] [id number] [address] [place] [address] Apr, Neuroforaminal stenosis of s pine M99.89 ; Neck pain M54.2 ; Chronic pain due to trauma G89.21 ; Mixed hyperlipidemia E78.2 ; Essential hypertension I10 and Hypokalemia E87.6 [place] [address] [id number] [address] [place] [address] Mar, Oral candidiasis B37.0 ; Nathaniel roforaminal stenosis of spine M99.89 ; Neck pain M54.2 and Chronic pain due to trauma G89.21 [place] [address] [place] [id number] [address] [place] [phone] Feb, [place] [address] [place] [id number] [address] [place] [phone] Feb, [place] [address] [place] [id number] [address] [place] [address] Feb, UTI (urinary tract infection ) N39.0 [place] [address] [place] [id number] [address] [place] [address] Feb, Dysuria R30.0 [place] [address] [place] [id number] [address] [place] [phone] Feb, Dysuria R30.0 [place] [address] [place] [id number] [address] [place] [phone] 02 Feb, 2016 Neuroforaminal stenosis of s pine M99.89 ; Neck pain M54.2 ; Essential hypertension I10 ; Chronic pain due to trauma G89.21 ; Dysuria R30.0 ; Abnormal MRI, shoulder R93.8 and Acute cystitis without hematuria N30.00 [place] [address] [place] [id number] [address] [place] [address] Jan, [place] [address] [place] [id number] [address] [place] [address] Jan, [facility] [address] [id number] [address] [place] [phone] Jan, [facility] [address] [id number] [address] [place] [phone] Jan, Abnormal MRI R93.8 [facility] [address] [id number] [address] [place] [phone] 29 Dec, 2015 [facility] [address] [id number] [address] [place] [phone] 15 Dec, 2015 Acute pain of left shoulder M25.512 [facility] [address] [id number] [address] [place] [phone] 09 Dec, 2015 [facility] [address] [id number] [address] [place] [phone] 08 Dec, 2015 [facility] [address] [id number] [address] [place] [phone] 07 Dec, 2015 Acute pain of left shoulder M25.512 [facility] [address] [id number] [address] [place] [phone] Nov, [facility] [address] [id number] [address] [place] [id number] 16 Nov, 2015 Neuroforaminal stenosis of s pine M99.89 ; Neck pain M54.2 ; Abnormal mammogram R92.8 ; Essential hypertension I10 and Chronic pain due to trauma G89.21 [facility] [address] [id number] [address] [place] [phone] Nov, [facility] [address] [id number] [address] [place] [phone] Oct, Acute stress disorder F43.0 [facility] [address] [id number] [address] [place] [id number] Oct, [facility] [address] [id number] [address] [place] [phone] 14 Oct, 2015 [facility] [address] [id number] [address] [place] [phone] Oct, [facility] [address] [address] [id number] [address] [place] [phone] Sep, [facility] [address] [id number] [address] [place] [address] August, [facility] [address] [id number] [address] [place] [address] Jul, Neuroforaminal stenosis of s pine M99.89 ; Neck pain M54.2 ; Abnormal mammogram R92.8 and Essential hypertension I10 [facility] [address] [id number] [address] [place] [address] Jul, [facility] [address] [id number] [address] [place] [address] Jul, [facility] [address] [id number] [address] [place] [address] Jul, Abnormal mammogram R92.8 [facility] [address] [id number] [address] [place] [address] Jul, [facility] [address] [id number] [address] [place] [address] Jul, UTI (urinary tract infection ) N39.0 [facility] [address] [id number] [address] [place] [address] Jul, Dysuria R30.0 [facility] [address] [id number] [address] [place] [address] Jun, [facility] [address] [id number] [address] [place] [address] Jun, [facility] [address] [id number] [address] [place] [address] Jun, Hypokalemia E87.6 [address]ematu [address] R31.9 [facility] [address] [address] Jun, Hypokalemia E87.6 [place] [address] [address] Jun, [place] [address] [address] Jun, Hypokalemia E87.6 [place] [address] [address] Jun, Hypokalemia E87.6 [place] [address] [address] Jun, Neuroforaminal stenosis of s pine M99.89 ; Hypokalemia E87.6 ; Neck pain M54.2 ; Essential hypertension I10 ; Mixed hyperlipidemia E78.2 and Screening breast examination Z12.39 [place] [address] [address] Jun, Dysuria R30.0 ; UTI (urinary tract infection) N39.0 and Hematuria R31.9 [place] [address] [address] May, [place] [address] [address] May, High risk sexual behavior Z7 2.51 ; Hypokalemia E87.6 ; Neuroforaminal stenosis of spine M99.89 ; Neck pain M54.2 ; Essential hypertension I10 ; Mixed hyperlipidemia E78.2 ; STD exposure Z20.2 and Concern about STD in female without diagnosis Z71.[address] [address] 16 May, 2015 Neuroforaminal stenosis of s pine M99.89 ; Neck pain M54.2 ; Hypokalemia E87.6 ; Essential hypertension I10 and Mixed hyperlipidemia E78.2 [place] [address] [address] 11 May, 2015 [facility] [address] [place] [id number] [address] [place] [address] 08 May, 2015 High risk sexual behavior Z7 2.51 ; STD exposure Z20.2 and Concern about STD in female without diagnosis Z71.1 [facility] [address] [place] [id number] [address] [place] [address] May, [place] [address] [address] Apr, Neuroforaminal stenosis of s pine M99.89 ; Mixed hyperlipidemia E78.2 ; Essential hypertension I10 and Hypokalemia E87.6 [place] [address] [address] Mar, [place] [address] [address] Mar, Hypokalemia E87.6 [place] [address] [address] Mar, Neuroforaminal stenosis of s pine M99.89 ; Mixed hyperlipidemia E78.2 ; Neck pain M54.2 ; Essential hypertension I10 ; Abnormal fasting glucose R73.09 ; Hypokalemia E87.6 and Constipation K59.00 [place] [address] [place] [id number] [address] [place] [address] Feb, Neuroforaminal stenosis of s pine M99.89 ; Mixed hyperlipidemia E78.2 ; Neck pain M54.2 ; Essential hypertension I10 ; Abnormal fasting glucose R73.09 ; Hypokalemia E87.6 and Constipation K59.00 [place] [address] [address] Feb, Elevated fasting blood sugar R73.01 [place] [address] [address] Feb, Elevated fasting blood sugar R73.01 [place] [address] [id number] [address] [place] [address] Feb, Hair loss L65.9 [place] [address] [facility] [id number] [address] [place] [address] Feb, Sinusitis J32.9 ; Essential hypertension I10 and Hair loss L65.9 [place] [address] [facility] [id number] [address] [place] [address] Jan, [place] [address] [facility] [id number] [address] [place] [address] Jan, Essential hypertension I10 ; Neuroforaminal stenosis of spine M99.89 ; Neck pain M54.2 ; Mixed hyperlipidemia E78.2 and Anxiety F41.9 [place] [address] [id number] [address] [place] [address] Jan, [place] [address] [place] [id number] [place] [address] Jan, Mixed hyperlipidemia E78.2 ; Essential (primary) hypertension I10 ; Strain of muscle, fascia and tendon at neck level, subsequent encounter S16.1XXD and Tension-type headache, unspecified, not intractable G44.209 [place] [address] [id number] [address] [place] [address] Dec, Lumbar back pain 724.2 and N euroforaminal stenosis of spine 724.00 [place] [address] [id number] [address] [place] [address] Nov, [place] [address] [id number] [address] [place] [address] Nov, Lumbar back pain 724.2 and N euroforaminal stenosis of spine 724.00 [place] [address] [facility] [id number] [address] [place] [address] Nov, Edema 782.3 ; Lumbar back pa in 724.2 ; Essential hypertension, benign 401.1 ; Hyperlipemia 272.4 ; Neuroforaminal stenosis of spine 724.00 and Post-concussion headache 339.20 [facility] [address] [id number] [address] [place] [address] Nov, [facility] [address] [id number] [address] [place] [address] Nov, [facility] [address] [id number] [address] [place] [address] Oct, Essential hypertension, sheridan gn 401.1 [facility] [address] [id number] [address] [place] [address] Oct, Edema 782.3 ; Lumbar back pa in 724.2 ; Essential hypertension, benign 401.1 ; Hyperlipemia 272.4 ; Neuroforaminal stenosis of spine 724.00 and Post-concussion headache 339.20 [facility] [address] [id number] [address] [place] [address] Oct, [facility] [address] [id number] [address] [place] [address] Oct, Edema 782.3 [facility] [address] [id number] [address] [place] [address] Oct, Lumbar back pain 724.2 [place] [address] [id number] [address] [place] [address] Oct, Cervicalgia 723.1 ; Lumbar b ack pain 724.2 and High risk medication use V58.69 [facility] [address] [id number] [address] [place] [address] Sep, [facility] [address] [id number] [address] [place] [address] Sep, Lumbar strain 847.2 [facility] [address] [id number] [address] [place] [address] August, Edema 782.3 and Eustachian t ube dysfunction 381.81 [place] [address] [id number] [address] [place] [address] August, [facility] [address] [id number] [address] [place] [address] August, Eustachian tube dysfunction 381.81 [facility] [address] [id number] [address] [place] [address] Jul, Otalgia 388.70 and Otitis me jonathon 382.9 [facility] [address] [id number] [address] [place] [address] Jul, [facility] [address] [id number] [address] [place] [address] Jul, [facility] [address] [id number] [address] [place] [address] Jul, [facility] [address] [id number] [address] [place] [address] Jul, [facility] [address] [id number] [address] [place] [address] Jul, [facility] [address] [id number] [address] [place] [address] Jun, [facility] [address] [id number] [address] [place] [address] Jun, [facility] [address] [id number] [address] [place] [address] Jun, [facility] [address] [id number] [address] [place] [address] May, [facility] [address] [id number] [address] [place] [address] May, [facility] [address] [id number] [address] [place] [address] May, [facility] [address] [id number] [address] [place] [address] May, [facility] [address] [id number] [address] [place] [address], [place] [address] 17 May, 2014 [facility] [address] [id number] [address] [place] [address], [place] [address] May, 2014 [facility] [address] [id number] [address] [place] [address], [place] [address] May, 2014 [facility] [address] [id number] [address] [place] [address], [place] [address] May, 2014 [facility] [address] [id number] [address] [place] [address], [place] [address] May, 2014 [facility] [address] [id number] [address] [place] [address], [place] [address] May, [facility] [address] [id number] [address] [place] [address], [place] [address] Apr, [facility] [address] [id number] [address] [place] [address], [place] [address] Apr, [facility] [address] [id number] [address] [place] [address], [place] [address] Apr, [facility] [address] [id number] [address] [place] [address], [place] [address] Apr, [facility] [address] [id number] [address] [place] [address], [place] [address] Apr, [facility] [address] [id number] [address] [place] [address], [place] [address] Apr, [facility] [address] [id number] [address] [place] [address], [place] [address] Apr, [facility] [address] [id number] [address] [place] [address], [place] [address] Apr, [facility] [address] [id number] [address] [place] [address], [place] [address] Apr, [facility] [address] [id number] [address] [place] [address], [place] [address] Apr, [facility] [address] [id number] [address] [place] [address], [place] [address] Apr, [facility] [address] [id number] [address] [place] [address], [place] [address] Apr, [facility] [address] [id number] [address] [place] [address], [place] [address] Apr, [facility] [address] [id number] [address] [place] [address], [place] [address] Apr, [facility] [address] [id number] [address] [place] [address], [place] [address] Apr, [facility] [address] [id number] [address] [place] [address], [place] [address] Mar, [facility] [address] [id number] [address] [place] [address], [place] [address] Mar, [facility] [address] [id number] [address] [place] [address], [place] [address] Mar, [facility] [address] [id number] [address] [place] [address], [place] [address] Mar, [facility] [address] [id number] [address] [place] [address], [place] [address] Feb, [facility] [address] [id number] [address] [place] [address] Feb, [facility] [address] [id number] [address] [place] [address] Feb, [facility] [address] [id number] [address] [place] [address], [place] [address] Feb, [facility] [address] [id number] [address] [place] [address], [place] [address] Jan, [facility] [address] [id number] [address] [place] [address] Jan, [facility] [address] [id number] [address] [place] [address], [place] [address] Jan, [facility] [address] [id number] [address] [place] [address], [place] [address] Jan, [facility] [address] [id number] [address] [place] [address], [place] [address] Jan, [facility] [address] [id number] [address] [place] [address], [place] [address] Jan, [facility] [address] [id number] [address] [place] [address], [place] [address] Jan, [facility] [address] [id number] [address] [place] [address], [place] [address] Jan, [facility] [address] [id number] [address] [place] [address], [place] [address] Dec, [facility] [address] [id number] [address] [place] [address], [place] [address] Dec, [facility] [address] [id number] [address] [place] [address], [place] [address] Dec, [facility] [address] [id number] [address] [place] [address], [place] [address] Dec, [facility] [address] [id number] [address] [place] [address], [place] [address] Oct, [facility] [address] [id number] [address] [place] [address], [place] [address] Oct, [facility] [address] [id number] [address] [place] [address], [place] [address] Oct, [facility] [address] [id number] [address] [place] [address], [place] [address] Oct, [facility] [address] [id number] [address] [place] [address], [place] [address] Oct, [facility] [address] [id number] [address] [place] [address], [place] [address] Oct, [facility] [address] [id number] [address] [place] [address], [place] [address] Oct, [facility] [address] [id number] [address] [place] [address], [place] [address] Oct, [facility] [address] [id number] [address] [place] [address], [place] [address] Sep, [facility] [address] [id number] [address] [place] [address], [place] [address] Sep, [facility] [address] [id number] [address] [place] [address], [place] [address] Sep, [facility] [address] [id number] [address] [place] [address], [place] [address] Sep, [facility] [address] [id number] [address] [place] [address], [place] [address] Sep, [facility] [address] [id number] [address] [place] [address], [place] [address] Sep, [facility] [address] [id number] [address] [place] [address], [place] [address] Sep, [facility] [address] [id number] [address] [place] [address], [place] [address] Sep, [facility] [address] [id number] [address] [place] [address], [place] [address] Sep, [facility] [address] [id number] [address] [place] [address], [place] [address] Sep, [facility] [address] [id number] [address] [place] [address], [place] [address] August, [facility] [address] [id number] [address] [place] [address], [place] [address] August, [facility] [address] [id number] [address] [place] [address], [place] [address] August, [facility] [address] [id number] [address] [place] [address], [place] [address] August, [facility] [address] [id number] [address] [place] [address], [place] [address] August, [facility] [address] [id number] [address] [place] [address], [place] [address] August, [facility] [address] [id number] [address] [place] [address], [place] [address] August, [facility] [address] [id number] [address] [place] [address], [place] [address] August, [facility] [address] [id number] [address] [place] [address], [place] [address] August, [facility] [address] [id number] [address] [place] [address], [place] [address] August, [facility] [address] [id number] [address] [place] [address], [place] [address] August, [facility] [address] [id number] [address] [place] [address], [place] [address] August, [facility] [address] [id number] [address] [place] [address], [place] [address] Jul, [facility] [address] [id number] [address] [place] [address], [place] [address] Jul, [facility] [address] [id number] [address] [place] [address], [place] [address] Jul, [facility] [address] [id number] [address] [place] [address], [place] [address] Jul, [facility] [address] [id number] [address] [place] [address], [place] [address] Jul, [facility] [address] [id number] [address] [place] [address], [place] [address] Jul, [facility] [address] [id number] [address] [place] [address], [place] [address] Jun, [facility] [address] [id number] [address] [place] [address], [place] [address] Jun, [facility] [address] [id number] [address] [place] [address], [place] [address] May, [facility] [address] [id number] [address] [place] [address], [place] [address] May, [facility] [address] [id number] [address] [place] [address], [place] [address] Apr, [facility] [address] [id number] [address] [place] [address], [place] [address] Apr, [facility] [address] [id number] [address] [place] [address], [place] [address] Apr, [facility] [address] [id number] [address] [place] [address], [place] [address] Apr, [facility] [address] [id number] [address] [place] [address], [place] [address] Apr, [facility] [address] [id number] [address] [place] [address], [place] [address] Apr, [facility] [address] [id number] [address] [place] [address], [place] [address] Apr, [facility] [address] [id number] [address] [place] [address], [place] [address] Apr, [facility] [address] [id number] [address] [place] [address], [place] [address] Apr, [facility] [address] [id number] [address] [place] [address], [place] [address] Apr, [facility] [address] [id number] [address] [place] [address], [place] [address] Apr, [facility] [address] [id number] [address] [place] [address], [place] [address] Apr, [facility] [address] [id number] [address] [place] [address], [place] [address] Apr, [facility] [address] [id number] [address] [place] [address], [place] [address] Mar, [facility] [address] [id number] [address] [place] [address], [place] [address] Mar, [facility] [address] [id number] [address] [place] [address], [place] [address] Mar, [facility] [address] [id number] [address] [place] [address], [place] [address] Mar, [facility] [address] [id number] [address] [place] [address], [place] [address] Feb, [facility] [address] [id number] [address] [place] [address], [place] [address] Feb, [facility] [address] [id number] [address] [place] [address], [place] [address] Feb, [facility] [address] [id number] [address] [place] [id number] Feb, [facility] [address] [id number] [address] [place] [address], [place] [address] 14 Jan, 2013 [facility] [address] [id number] [address] [place] [id number] 14 Jan, 2013 [facility] [address] [id number] [address] [place] [id number] Jan, [facility] [address] [id number] [address] [place] [id number] 11 Jan, 2013 [facility] [address] [id number] [address] [place] [address], [place] [address] 10 Jan, 2013 [facility] [address] [id number] [address] [place] [id number] 10 Jan, 2013 [facility] [address] [id number] [address] [place] [id number] 09 Jan, 2013 [facility] [address] [id number] [address] [place] [address], [place] [address] Jan, [facility] [address] [id number] [address] [place] [address], [place] [address] Jan, [facility] [address] [id number] [address] [place] [address], [place] [address] 26 Dec, 2012 [facility] [address] [id number] [address] [place] [address], [place] [address] 16 Dec, 2012 [facility] [address] [id number] [address] [place] [address], [place] [address] 16 Dec, 2012 [facility] [address] [id number] [address] [place] [address], [place] [address] Dec, [facility] [address] [id number] [address] [place] [address], [place] [address] Nov, [facility] [address] [id number] [address] [place] [address], [place] [address] Nov, [facility] [address] [id number] [address] [place] [address], [place] [address] Nov, [facility] [address] [id number] [address] [place] [address], [place] [address] Nov, [facility] [address] [id number] [address] [place] [address], [place] [address] Oct, [facility] [address] [id number] [address] [place] [address], [place] [address] Sep, [facility] [address] [id number] [address] [place] [address], [place] [address] August, [facility] [address] [id number] [address] [place] [address], [place] [address] August, [facility] [address] [id number] [address] [place] [address], [place] [address] August, [facility] [address] [id number] [address] [place] [address], [place] [address] August, [facility] [address] [id number] [address] [place] [address] [place] [address] August, [facility] [address] [id number] [address] [place] [address], [place] [address] August, [facility] [address] [id number] [address] [place] [address], [place] [address] August, [facility] [address] [id number] [address] [place] [address], [place] [address] August, [facility] [address] [id number] [address] [place] [address], [place] [address] August, [facility] [address] [id number] [address] [place] [address], [place] [address] August, [facility] [address] [id number] [address] [place] [address], [place] [address] August, [facility] [address] [id number] [address] [place] [address], [place] [address] August, [facility] [address] [id number] [address] [place] [address], [place] [address] Jul, [facility] [address] [id number] [address] [place] [address], [place] [address] Jul, [facility] [address] [id number] [address] [place] [address], [place] [address] Jul, [facility] [address] [id number] [address] [place] [address], [place] [address] Jul, [facility] [address] [id number] [address] [place] [address], [place] [address] Jul, [facility] [address] [id number] [address] [place] [address], [place] [address] Jul, [facility] [address] [id number] [address] [place] [address], [place] [address] 04 Jul, 2012 [facility] [address] [id number] [address] [place] [address] Jul, [facility] [address] [id number] [address] [place] [address], [place] [address] Jul, [facility] [address] [id number] [address] [place] [address], [place] [address] Jul, [facility] [address] [id number] [address] [place] [address], [place] [address] Jul, [facility] [address] [id number] [address] [place] [address], [place] [address] Jun, [facility] [address] [id number] [address] [place] [address], [place] [address] Jun, [facility] [address] [id number] [address] [place] [address], [place] [address] Jun, [facility] [address] [id number] [address] [place] [address], [place] [address] Jun, [facility] [address] [id number] [address] [place] [address], [place] [address] May, [facility] [address] [id number] [address] [place] [address], [place] [address] May, [facility] [address] [id number] [address] [place] [address], [place] [address] May, [facility] [address] [id number] [address] [place] [address], [place] [address] May, [facility] [address] [id number] [address] [place] [address] May, [facility] [address] [id number] [address] [place] [address], [place] [address] May, [facility] [address] [id number] [address] [place] [address] Apr, [facility] [address] [id number] [address] [place] [address] Apr, [facility] [address] [id number] [address] [place] [address], [place] [address] 30 Apr, 2012 [facility] [address] [id number] [address] [place] [address], [place] [address] Apr, [facility] [address] [id number] [address] [place] [address], [place] [address] 15 Mar, 2012 [facility] [address] [id number] [address] [place] [address], [place] [address] 14 Mar, 2012 [facility] [address] [id number] [address] [place] [address], [place] [address] 14 Mar, 2012 [facility] [address] [id number] [address] [place] [address], [place] [address] Mar, [facility] [address] [id number] [address] [place] [address], [place] [address] Mar, [facility] [address] [id number] [address] [place] [address], [place] [address] Mar, [facility] [address] [id number] [address] [place] [address], [place] [address] Mar, [facility] [address] [id number] [address] [place] [address], [place] [address] Feb, [facility] [address] [id number] [address] [place] [address], [place] [address] Feb, [facility] [address] [id number] [address] [place] [address], [place] [address] Feb, [facility] [address] [id number] [address] [place] [address], [place] [address] Feb, [facility] [address] [id number] [address] [place] [address], [place] [address] Jan, [facility] [address] [id number] [address] [place] [address], [place] [address] Jan, [facility] [address] [id number] [address] [place] [address], [place] [address] Jan, [facility] [address] [id number] [address] [place] [address], [place] [address] Jan, [facility] [address] [id number] [address] [place] [address], [place] [address] Jan, [facility] [address] [id number] [address] [place] [address], [place] [address] Jan, [facility] [address] [id number] [address] [place] [address], [place] [address] Dec, [facility] [address] [id number] [address] [place] [address], [place] [address] Dec, [facility] [address] [id number] [address] [place] [address], [place] [address] Nov, [facility] [address] [id number] [address] [place] [address], [place] [address] Sep, [facility] [address] [id number] [address] [place] [address], [place] [address] August, [facility] [address] [id number] [address] [place] [address], [place] [address] August, [facility] [address] [id number] [address] [place] [address], [place] [address] August, [facility] [address] [id number] [address] [place] [address], [place] [address] August, [facility] [address] [id number] [address] [place] [address], [place] [address] August, [facility] [address] [id number] [address] [place] [address], [place] [address] Jun, [facility] [address] [id number] [address] [place] [address], [place] [address] Jun, [facility] [address] [id number] [address] [place] [address], [place] [address] Apr, [facility] [address] [id number] [address] [place] [address], [place] [address] 20 Apr, 2011 [facility] [address] [id number] [address] [place] [address], [place] [address] 23 Mar, 2011 [facility] [address] [id number] [address] [place] [address], [place] [address] Feb, [facility] [address] [id number] [address] [place] [address], [place] [address] 14 Feb, 2011 [facility] [address] [id number] [address] [place] [address], [place] [address] 14 Feb, 2011 [facility] [address] [id number] [address] [place] [address], [place] [address] 17 Jan, 2011 [facility] [address] [id number] [address] [place] [address], [place] [address] 15 Jan, 2011 [facility] [address] [id number] [address] [place] [address], [place] [address] 15 Jan, 2011 [facility] [address] [id number] [address] [place] [address], [place] [address] 14 Jan, 2011 [facility] [address] [id number] [address] [place] [address], [place] [address] 15 May, 2010 [facility] [address] [id number] [address] [place] [address], [place] [address] 04 Mar, 2010 [facility] [address] [id number] [address] [place] [address], [place] [address] Oct, [facility] [address] [id number] [address] [place] [address], [place] [address] Sep, [facility] [address] [id number] [address] [place] [address], [place] [address] Mar, [facility] [address] [id number] [address] [place] [address], [place] [address] Jan, [facility] [address] [id number] [address] [place] [address], [place] [address] Jan, [facility] [address] [facility] [id number] [address] [place] [address] May, IMMUNIZATIONS No Known Immunizations SOCIAL HISTORY [...] squamous atypia (no definite dyplasia). Performed at [facility] Dr. Joy. Medical History Acute [...]
--- OUTSIDE RECORDS SUMMARY | 2019-11-23 05:52 | XMS REPORT ---
Author Author Liana Fuchs Organization [facility] Address [address] [place] [address] Care Team Providers Care Set Painter Name Role Phone PACHECO Fuchs Unavailable PROBLEMS Type Condition ICD9-CM Code XOU31-BO Code Onset Dates Condition S tatus SNOMED Code Problem Hematuria, unspecified type R31.9 Ac tive 74925832 Problem Abnormal renal ultrasound R93.429 Acti ve [id number] Problem Anxiety F41.9 Active 73798106 Problem Hypokalemia E87.6 Active 28754644 Problem Abnormal glucose R73.09 Active 102 493781 Problem Chronic pain due to trauma G89.21 Act juanis [id number] Problem Neuroforaminal stenosis of spine M99.89 Active [id number] Problem Neck pain M54.2 Active 23628737 Problem Essential hypertension I10 Active 58840685 Problem Mixed hyperlipidemia E78.2 Active 22126283 ALLERGIES No Information ENCOUNTERS Encounter Location Date Diagnosis [place] [address] [facility] [id number] [address] [place] [phone] Dec, Neuroforaminal stenosis of s pine M99.89 [place] [address] [facility] [id number] [address] [place] [id number] Nov, [place] [address] [facility] [id number] [address] [place] [phone] Nov, Neuroforaminal stenosis of s pine M99.89 [place] [id number] [facility] [id number] [address] [place] [id number] Nov, Acute non-recurrent maxillar y sinusitis J01.00 [facility] [address] [facility] [id number] [address] [place] [phone] Oct, Hypokalemia E87.[address] [facility] [address] [id number] [address] [place] [phone] Oct, Wasp sting, undetermined int ent, initial encounter T63.464A and Cellulitis of left lower extremity L03.116 [facility] [address] [facility] [id number] [address] [place] [phone] Oct, Neuroforaminal stenosis of s pine M99.89 [facility] [address] [id number] [address] [place] [phone] Sep, [place] [address] [facility] [id number] [address] [place] [phone] Sep, [place] [address] [facility] [id number] [address] [place] [phone] 18 Sep, 2018 Routine screening for STI (s exually transmitted infection) Z11.3 [place] [address] [place] [id number] [address] [place] [phone] 14 Sep, 2018 Routine screening for STI (s exually transmitted infection) Z11.3 ; Well woman exam with routine gynecological exam Z01.419 and Breast cancer screening Z12.39 [place] [address] [facility] [id number] [address] [place] [phone] Sep, Neuroforaminal stenosis of s pine M99.89 [place] [address] [facility] [id number] [address] [place] [id number] August, Neuroforaminal stenosis of s pine M99.89 [place] [address] [facility] [id number] [address] [place] [phone] August, Neuroforaminal stenosis of s pine M99.89 ; Chronic pain due to trauma G89.21 and Mixed hyperlipidemia E78.2 [place] [address] [facility] [id number] [address] [place] [id number] 16 Jul, 2018 Viral upper respiratory illn ess J06.9 and Acute non-recurrent frontal sinusitis J01.10 [place] [address] [facility] [id number] [address] [place] [phone] Jul, Congestion of nasal sinus R0 9.81 [facility] [address] [id number] [address] [place] [phone] Jul, Neuroforaminal stenosis of s jose M99.89 and Essential hypertension I10 [facility] [address] [id number] [address] [place] [phone] May, Neuroforaminal stenosis of s jose M99.89 [facility] [address] [id number] [address] [place] [phone] May, [facility] [address] [id number] [address] [place] [phone] May, Congestion of nasal sinus R0 9.81 [facility] [address] [id number] [address] [place] [phone] May, [facility] [address] [id number] [address] [place] [phone] Apr, Neuroforaminal stenosis of s jose M99.89 [facility] [address] [id number] [address] [place] [id number] Apr, Neuroforaminal stenosis of s jose M99.89 and Chronic pain due to trauma G89.21 [facility] [address] [id number] [address] [place] [phone] Mar, UTI (urinary tract infection ) N39.0 [facility] [address] [id number] [address] [place] [phone] Mar, Vertigo R42 [facility] [address] [id number] [address] [place] [phone] Mar, Neuroforaminal stenosis of s jose M99.89 [facility] [address] [id number] [address] [place] [phone] Feb, Extensor tendon disruption M 67.89 [facility] [address] [id number] [address] [place] [phone] Feb, Neuroforaminal stenosis of s pine M99.89 and High risk medication use Z79.899 [facility] [address] [id number] [address] [place] [phone] Jan, Hypokalemia E87.6 [facility] [address] [id number] [address] [place] [phone] Jan, Flank pain R10.9 and Acute r ight-sided low back pain without sciatica M54.5 [place] [address] [id number] [address] [place] [phone] Jan, Hypokalemia E87.6 [place] [address] [facility] [id number] [address] [place] [phone] Jan, [place] [address] [facility] [id number] [address] [place] [phone] Jan, URI, acute J06.9 [place] [address] [id number] [address] [place] [address] Jan, Neuroforaminal stenosis of s jose M99.89 [place] [address] [facility] [id number] [address] [place] [id number] 13 Dec, 2017 Lateral epicondylitis, right elbow M77.11 [place] [address] [id number] [address] [place] [phone] 11 Dec, 2017 Allergic rhinitis due to monica rosalina, unspecified seasonality J30.1 and Allergic conjunctivitis of both eyes H10.13 [place] [address] [id number] [address] [place] [phone] 10 Dec, 2017 Neuroforaminal stenosis of s pine M99.89 [facility] [address] [facility] [id number] [address] [place] [id number] 06 Dec, 2017 Mixed hyperlipidemia E78.2 [place] [address] [facility] [id number] [address] [place] [phone] Dec, Abnormal glucose R73.09 ; Ab normal renal ultrasound R93.429 ; Dysuria R30.0 ; Cystitis without hematuria N30.90 ; Hypokalemia E87.6 ; Mixed hyperlipidemia E78.2 and Hematuria, unspecified type R31.9 [place] [address] [facility] [id number] [address] [place] [id number] Nov, Hypokalemia E87.6 ; Mixed hy perlipidemia E78.2 and Hematuria, unspecified type R31.9 [place] [address] [facility] [id number] [address] [place] [phone] Nov, [place] [address] [facility] [id number] [address] [place] [phone] Nov, Hypokalemia E87.6 [place] [address] [facility] [id number] [address] [place] [phone] Nov, [place] [address] [place] [id number] [address] [place] [phone] Nov, Abnormal renal ultrasound R9 3.429 [place] [address] [id number] [address] [place] [phone] Nov, Abnormal renal ultrasound R9 3.429 [place] [address] [facility] [id number] [address] [place] [phone] Nov, Hematuria, unspecified type R31.9 and Neuroforaminal stenosis of spine M99.89 [place] [address] [facility] [id number] [address] [place] [id number] Nov, Dysuria R30.0 [place] [address] [facility] [id number] [address] [place] [phone] Oct, Lateral epicondylitis, right elbow M77.11 [place] [address] [facility] [id number] [address] [place] [phone] Oct, Neuroforaminal stenosis of s pine M99.89 ; Visit for TB skin test Z11.1 and Essential hypertension I10 [place] [address] [facility] [id number] [address] [place] [phone] 16 Oct, 2017 [place] [address] [facility] [id number] [address] [place] [phone] 12 Oct, 2017 Neuroforaminal stenosis of s pine M99.89 [place] [address] [facility] [id number] [address] [place] [id number] 10 Oct, 2017 Visit for TB skin test Z11.1 [place] [address] [facility] [id number] [address] [place] [phone] 05 Oct, 2017 Cystitis without hematuria N 30.90 [place] [address] [facility] [id number] [address] [place] [id number] 28 Sep, 2017 Screening breast examination Z12.39 [place] [address] [place] [id number] [address] [place] [id number] 26 Sep, 2017 Dysuria R30.0 and Cystitis w ithout hematuria N30.90 [place] [address] [facility] [id number] [address] [place] [phone] 14 Sep, 2017 Essential hypertension I10 a nd Neuroforaminal stenosis of spine M99.89 [place] [address] [facility] [id number] [address] [place] [id number] 04 Sep, 2017 Abnormal glucose R73.09 [place] [address] [facility] [id number] [address] [place] [id number] August, Lateral epicondylitis, right elbow M77.11 [place] [address] [facility] [id number] [address] [place] [id number] August, Screen for STD (sexually tra nsmitted disease) Z11.3 [place] [address] [facility] [id number] [address] [place] [phone] August, Neuroforaminal stenosis of s pine M99.89 ; Mixed hyperlipidemia E78.2 ; Elevated fasting glucose R73.01 ; Screening mammogram, encounter for Z12.31 and Encounter for well woman exam without gynecological exam Z00.00 [facility] [address] [id number] [address] [place] [id number] August, Neuroforaminal stenosis of s jose M99.89 [facility] [address] [id number] [address] [place] [phone] August, Essential hypertension I10 ; Hypokalemia E87.6 and Mixed hyperlipidemia E78.2 [facility] [address] [id number] [address] [place] [id number] Jul, [facility] [address] [id number] [address] [place] [phone] Jul, Neuroforaminal stenosis of s jose M99.89 [place] [address] [facility] [id number] [address] [place] [phone] Jul, Lateral epicondylitis, right elbow M77.11 [place] [address] [id number] [address] [place] [phone] Jul, [facility] [address] [id number] [address] [place] [phone] Jun, High ankle sprain of right l ower extremity, initial encounter S93.431A [facility] [address] [id number] [address] [place] [phone] Jun, Essential hypertension I10 [facility] [address] [id number] [address] [place] [phone] Jun, [facility] [address] [id number] [address] [place] [phone] Jun, [facility] [address] [id number] [address] [place] [phone] Jun, Neuroforaminal stenosis of s jose M99.89 [facility] [address] [id number] [address] [place] [phone] Jun, Pain of right upper extremit y M79.601 and Essential hypertension I10 [facility] [id number] [place] [phone] Jun, [place] [address] [address] Jun, Dysuria R30.0 ; Acute cystit is with hematuria N30.01 and Screen for STD (sexually transmitted disease) Z11.3 [place] [address] [phone] May, Chronic pain due to trauma G 89.21 [place] [address] [place] [id number] [place] [phone] May, Essential hypertension I10 [place] [address] [phone] May, Neuroforaminal stenosis of s pine M99.89 [place] [address] [phone] Apr, Allergic reaction, initial e ncounter T78.40XA [place] [address] [address] Apr, Low back pain, unspecified b ack pain laterality, unspecified chronicity, with sciatica presence unspecified M54.5 ; Acute cystitis with hematuria N30.01 ; Neuroforaminal stenosis of spine M99.89 ; Bilateral acute serous otitis media, recurrence not specified H65.03 ; Mixed hyperlipidemia E78.2 ; Essential hypertension I10 ; Immunization counseling Z71.89 and Encounter for immunization Z23 [place] [address] [place] [id number] [address] [place] [address] Apr, Neck pain M54.2 [place] [address] [id number] Mar, Neuroforaminal stenosis of s pine M99.89 [place] [address] [phone] Mar, Pharyngitis due to other org anism J02.8 [facility] [address] [id number] [address] [place] [phone] Feb, Neuroforaminal stenosis of s pine M99.89 [facility] [address] [id number] [address] [place] [id number] 08 Feb, 2017 UTI (urinary tract infection ) N39.0 [facility] [address] [id number] [address] [place] [phone] 07 Feb, 2017 Recent urinary tract infecti on Z87.440 ; Neuroforaminal stenosis of spine M99.89 ; Neck pain M54.2 ; Chronic pain due to trauma G89.21 and Recurrent UTI N39.0 [facility] [address] [id number] [address] [place] [phone] Feb, [facility] [address] [id number] [address] [place] [phone] Jan, Neuroforaminal stenosis of s pine M99.89 [facility] [address] [id number] [address] [place] [id number] Dec, Neuroforaminal stenosis of s pine M99.89 [facility] [address] [id number] [address] [place] [phone] 18 Dec, 2016 Acute seasonal allergic rhin itis due to pollen J30.1 [facility] [address] [id number] [address] [place] [phone] Dec, [facility] [address] [id number] [address] [place] [id number] 08 Dec, 2016 Acute seasonal allergic rhin itis, unspecified trigger J30.2 ; Allergic conjunctivitis of both eyes H10.13 and Dysfunction of both eustachian tubes H69.83 [facility] [address] [id number] [address] [place] [phone] 07 Dec, 2016 [facility] [address] [id number] [address] [place] [phone] 06 Dec, 2016 Nevus D22.9 [facility] [address] [id number] [address] [place] [address] Nov, Chronic pain due to trauma G 89.21 and Neuroforaminal stenosis of spine M99.89 [facility] [address] [id number] [address] [place] [address] Nov, Neuroforaminal stenosis of s pine M99.89 ; Essential hypertension I10 ; Mixed hyperlipidemia E78.2 ; Hypokalemia E87.6 ; Neck pain M54.2 and Nevus D22.9 [facility] [address] [id number] [address] [place] [phone] Oct, Neuroforaminal stenosis of s pine M99.89 [facility] [address] [id number] [address] [place] [address] Sep, Neuroforaminal stenosis of s pine M99.89 [facility] [address] [id number] [address] [place] [phone] Sep, [facility] [address] [id number] [address] [place] [id number] August, [facility] [address] [id number] [address] [place] [id number] August, Neck pain M54.2 and Neurofor aminal stenosis of spine M99.89 [facility] [address] [id number] [address] [place] [phone] August, Routine gynecological examin ation Z01.419 and Screening breast examination Z12.39 [facility] [address] [id number] [address] [place] [phone] Jul, [facility] [address] [id number] [address] [place] [phone] Jul, [facility] [address] [id number] [address] [place] [phone] Jul, Neuroforaminal stenosis of s pine M99.89 [facility] [address] [id number] [address] [place] [id number] Jul, [facility] [address] [id number] [address] [place] [id number] Jul, Neuroforaminal stenosis of l umbar 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 [facility] [address] [id number] [address] [place] [phone] Jul, [facility] [address] [id number] [address] [place] [phone] Jul, [facility] [address] [id number] [address] [place] [phone] Jun, Neuroforaminal stenosis of s jose M99.89 [facility] [address] [id number] [address] [place] [phone] Jun, Uterine leiomyoma, unspecifi ed location D25.9 and Allergic reaction caused by a drug, initial encounter T78.40XA [facility] [address] [id number] [address] [place] [id number] Jun, [facility] [address] [id number] [address] [place] [phone] May, UTI symptoms R39.9 and Pain of right sacroiliac joint M53.3 [facility] [address] [id number] [address] [place] [phone] May, Neuroforaminal stenosis of s jose M99.89 [facility] [address] [id number] [address] [place] [phone] May, [facility] [address] [id number] [address] [place] [phone] May, Acute mucoid otitis media of left ear H65.112 and Acute non- recurrent maxillary sinusitis J01.00 [facility] [address] [id number] [address] [place] [id number] May, Acute bacterial conjunctivit is of both eyes H10.33 ; Left arm pain M79.602 and Hypokalemia E87.6 [facility] [address] [id number] [address] [place] [phone] Apr, [facility] [address] [facility] [id number] [address] [place] [phone] Apr, Neuroforaminal stenosis of s pine M99.89 ; Neck pain M54.2 ; Chronic pain due to trauma G89.21 ; Mixed hyperlipidemia E78.2 ; Essential hypertension I10 and Hypokalemia E87.6 [place] [address] [id number] [address] [place] [id number] Mar, Oral candidiasis B37.0 ; Nathaniel roforaminal stenosis of spine M99.89 ; Neck pain M54.2 and Chronic pain due to trauma G89.21 [place] [address] [facility] [id number] [address] [place] [id number] Feb, [place] [address] [id number] [address] [place] [phone] Feb, [facility] [address] [id number] [address] [place] [phone] Feb, UTI (urinary tract infection ) N39.0 [place] [id number] [facility] [id number] [address] [place] [phone] 09 Feb, 2016 Dysuria R30.0 [place] [address] [id number] [address] [place] [id number] 08 Feb, 2016 Dysuria R30.0 [place] [id number] [facility] [id number] [address] [place] [id number] 02 Feb, 2016 Neuroforaminal stenosis of s pine M99.89 ; Neck pain M54.2 ; Essential hypertension I10 ; Chronic pain due to trauma G89.21 ; Dysuria R30.0 ; Abnormal MRI, shoulder R93.8 and Acute cystitis without hematuria N30.00 [place] [address] [id number] [address] [place] [phone] Jan, [facility] [address] [id number] [address] [place] [phone] Jan, [facility] [address] [id number] [address] [place] [phone] Jan, [facility] [address] [id number] [address] [place] [phone] Jan, Abnormal MRI R93.8 [facility] [address] [id number] [address] [place] [phone] 29 Dec, [address] [facility] [address] [id number] [address] [place] [id number] 15 Dec, 2015 Acute pain of left shoulder M25.512 [facility] [address] [id number] [address] [place] [phone] 09 Dec, 2015 [facility] [address] [id number] [address] [place] [id number] 08 Dec, 2015 [facility] [address] [id number] [address] [place] [id number] 07 Dec, 2015 Acute pain of left shoulder M25.512 [facility] [address] [id number] [address] [place] [id number] 23 Nov, 2015 [facility] [address] [id number] [address] [place] [phone] 16 Nov, 2015 Neuroforaminal stenosis of s pine M99.89 ; Neck pain M54.2 ; Abnormal mammogram R92.8 ; Essential hypertension I10 and Chronic pain due to trauma G89.21 [facility] [address] [id number] [address] [place] [id number] Nov, [facility] [address] [id number] [address] [place] [id number] Oct, Acute stress disorder F43.0 [facility] [address] [id number] [address] [place] [phone] Oct, [facility] [address] [id number] [address] [place] [id number] Oct, [facility] [address] [id number] [address] [place] [phone] Oct, [facility] [address] [id number] [address] [place] [phone] Sep, [facility] [address] [id number] [address] [place] [phone] August, [facility] [address] [id number] [address] [place] [phone] Jul, Neuroforaminal stenosis of s pine M99.89 ; Neck pain M54.2 ; Abnormal mammogram R92.8 and Essential hypertension I10 [facility] [address] [id number] [address] [place] [phone] Jul, [facility] [address] [id number] [address] [place] [id number] Jul, [facility] [address] [id number] [address] [place] [address] Jul, Abnormal mammogram R92.8 [facility] [address] [id number] [address] [place] [id number] Jul, [facility] [address] [id number] [address] [place] [id number] Jul, UTI (urinary tract infection ) N39.0 [facility] [address] [id number] [address] [place] [id number] Jul, Dysuria R30.0 [facility] [address] [id number] [address] [place] [id number] Jun, [facility] [address] [id number] [address] [place] [address] Jun, [facility] [address] [id number] [address] [place] [address] Jun, Hypokalemia E87.6 and Hematu martina R31.9 [place] [address] [address] Jun, Hypokalemia E87.6 [place] [address] [facility] [id number] [address] [place] [address] Jun, [place] [address] [address] Jun, Hypokalemia E87.6 [place] [address] [place] [id number] [place] [address] Jun, Hypokalemia E87.6 [place] [address] [address] Jun, Neuroforaminal stenosis of s pine M99.89 ; Hypokalemia E87.6 ; Neck pain M54.2 ; Essential hypertension I10 ; Mixed hyperlipidemia E78.2 and Screening breast examination Z12.39 [place] [address] [address] Jun, Dysuria R30.0 ; UTI (urinary tract infection) N39.0 and Hematuria R31.9 [place] [address] [address] May, [place] [address] [address] May, High risk sexual behavior Z7 2.51 ; Hypokalemia E87.6 ; Neuroforaminal stenosis of spine M99.89 ; Neck pain M54.2 ; Essential hypertension I10 ; Mixed hyperlipidemia E78.2 ; STD exposure Z20.2 and Concern about STD in female without diagnosis Z71.1 [place] [address] [id number] 16 May, 2015 Neuroforaminal stenosis of s pine M99.89 ; Neck pain M54.2 ; Hypokalemia E87.6 ; Essential hypertension I10 and Mixed hyperlipidemia E78.2 [facility] [address] [place] [id number] [address] [place] [address] 11 May, 2015 [facility] [address] [id number] 08 May, 2015 High risk sexual behavior Z7 2.51 ; STD exposure Z20.2 and Concern about STD in female without diagnosis Z71.1 [facility] [address] [address] 05 May, 2015 [facility] [address] [address] Apr, Neuroforaminal stenosis of s pine M99.89 ; Mixed hyperlipidemia E78.2 ; Essential hypertension I10 and Hypokalemia E87.6 [place] [address] [address] Mar, [facility] [address] [address] Mar, Hypokalemia E87.[address] [address] Mar, Neuroforaminal stenosis of s pine M99.89 ; Mixed hyperlipidemia E78.2 ; Neck pain M54.2 ; Essential hypertension I10 ; Abnormal fasting glucose R73.09 ; Hypokalemia E87.6 and Constipation K59.00 [facility] [address] [place] [id number] [address] [place] [address] Feb, Neuroforaminal stenosis of s pine M99.89 ; Mixed hyperlipidemia E78.2 ; Neck pain M54.2 ; Essential hypertension I10 ; Abnormal fasting glucose R73.09 ; Hypokalemia E87.6 and Constipation K59.00 [place] [address] [address] Feb, Elevated fasting blood sugar R73.01 [place] [address] [place] [id number] [address] Feb, Elevated fasting blood sugar R73.01 [facility] [address] [facility] [id number] [address] [place] [address] Feb, Hair loss L65.9 [facility] [address] [facility] [id number] [address] [place] [address] Feb, Sinusitis J32.9 ; Essential hypertension I10 and Hair loss L65.9 [facility] [address] [facility] [id number] [address] [place] [address] Jan, [place] [address] [facility] [id number] [place] [address] Jan, Essential hypertension I10 ; Neuroforaminal stenosis of spine M99.89 ; Neck pain M54.2 ; Mixed hyperlipidemia E78.2 and Anxiety F41.9 [place] [address] [place] [id number] [address] [place] [address] Jan, [place] [address] [place] [id number] [address] [place] [address] Jan, Mixed hyperlipidemia E78.2 ; Essential (primary) hypertension I10 ; Strain of muscle, fascia and tendon at neck level, subsequent encounter S16.1XXD and Tension-type headache, unspecified, not intractable G44.209 [place] [address] [facility] [id number] [address] [place] [address] Dec, Lumbar back pain 724.2 and N euroforaminal stenosis of spine 724.00 [place] [address] [facility] [id number] [address] [place] [address] Nov, [place] [address] [place] [id number] [place] [address] Nov, Lumbar back pain 724.2 and N euroforaminal stenosis of spine 724.00 [place] [address] [place] [id number] [address] [place] [address] Nov, Edema 782.3 ; Lumbar back pa in 724.2 ; Essential hypertension, benign 401.1 ; Hyperlipemia 272.4 ; Neuroforaminal stenosis of spine 724.00 and Post-concussion headache 339.20 [facility] [address] [id number] [address] [place] [address] Nov, [facility] [address] [id number] [address] [place] [address] Nov, [facility] [address] [id number] [address] [place] [address] Oct, Essential hypertension, sheridan gn 401.1 [facility] [address] [id number] [address] [place] [address] Oct, Edema 782.3 ; Lumbar back pa in 724.2 ; Essential hypertension, benign 401.1 ; Hyperlipemia 272.4 ; Neuroforaminal stenosis of spine 724.00 and Post-concussion headache 339.20 [place] [id number] [id number] [address] [place] [address] Oct, [facility] [address] [id number] [address] [place] [address] Oct, Edema 782.3 [place] [address] [facility] [id number] [address] [place] [address] Oct, Lumbar back pain 724.2 [place] [address] [id number] [address] [place] [address] Oct, Cervicalgia 723.1 ; Lumbar b ack pain 724.2 and High risk medication use V58.69 [place] [address] [id number] [address] [place] [address] Sep, [place] [address] [facility] [id number] [address] [place] [address] Sep, Lumbar strain 847.2 [place] [address] [facility] [id number] [address] [place] [address] August, Edema 782.3 and Eustachian t ube dysfunction 381.81 [facility] [address] [id number] [address] [place] [address] August, [facility] [address] [facility] [id number] [address] [place] [address] August, Eustachian tube dysfunction 381.81 [facility] [address] [facility] [id number] [address] [place] [address] Jul, Otalgia 388.70 and Otitis me jonathon 382.9 [facility] [address] [facility] [id number] [address] [place] [address] Jul, [facility] [address] [facility] [id number] [address] [place] [address] Jul, [facility] [address] [facility] [id number] [address] [place] [address] Jul, [facility] [address] [facility] [id number] [address] [place] [address] Jul, [facility] [address] [facility] [id number] [address] [place] [address] Jul, [facility] [address] [facility] [id number] [address] [place] [address] Jun, [facility] [address] [facility] [id number] [address] [place] [address] Jun, [facility] [address] [id number] [address] [place] [id number] Jun, [facility] [address] [id number] [address] [place] [id number] May, [facility] [address] [facility] [id number] [address] [place] [address] May, [facility] [address] [facility] [id number] [address] [place] [id number] May, [facility] [place] [facility] [address] [id number] [address] [place] [address], [place] [address] May, 2014 [facility] [address] [id number] [address] [place] [address], [place] [address] May, 2014 [facility] [place] [facility] [address] [id number] [address] [place] [address], [place] [address] May, 2014 [facility] [place] [facility] [address] [id number] [address] [place] [address], [place] [address] May, 2014 [facility] [place] [facility] [address] [id number] [address] [place] [address], [place] [address] May, 2014 [facility] [place] [facility] [address] [id number] [address] [place] [address], [place] [address] May, 2014 [facility] [place] [facility] [address] [id number] [address] [place] [address], [place] [address] May, [facility] [place] [facility] [address] [id number] [address] [place] [address], [place] [address] Apr, [facility] [address] [id number] [address] [place] [address], [place] [address] Apr, [facility] [address] [id number] [address] [place] [address], [place] [address] Apr, [facility] [address] [id number] [address] [place] [address], [place] [address] Apr, [facility] [place] [facility] [address] [id number] [address] [place] [address], [place] [address] Apr, [facility] [place] [facility] [address] [id number] [address] [place] [address], [place] [address] Apr, [facility] [place] [facility] [address] [id number] [address] [place] [address], [place] [address] Apr, [facility] [place] [facility] [address] [id number] [address] [place] [address], [place] [address] Apr, [facility] [place] [facility] [address] [id number] [address] [place] [address], [place] [address] Apr, [facility] [address] [id number] [address] [place] [address], [place] [address] Apr, [facility] [address] [id number] [address] [place] [address], [place] [address] Apr, [facility] [address] [id number] [address] [place] [address], [place] [address] Apr, [facility] [address] [id number] [address] [place] [address], [place] [address] Apr, [facility] [address] [id number] [address] [place] [address], [place] [address] Apr, [facility] [address] [id number] [address] [place] [address], [place] [address] Apr, [facility] [address] [id number] [address] [place] [address], [place] [address] Mar, [facility] [place] [facility] [address] [id number] [address] [place] [address], [place] [address] Mar, [facility] [address] [id number] [address] [place] [address], [place] [address] Mar, [facility] [address] [id number] [address] [place] [address], [place] [address] Mar, [facility] [address] [id number] [address] [place] [address], [place] [address] Feb, [facility] [place] [facility] [address] [id number] [address] [place] [address] Feb, [facility] [place] [facility] [address] [id number] [address] [place] [address], [place] [address] Feb, [facility] [place] [facility] [address] [id number] [address] [place] [address], [place] [address] Feb, [facility] [place] [facility] [address] [id number] [address] [place] [address], [place] [address] Jan, [facility] [place] [facility] [address] [id number] [address] [place] [address], [place] [address] 07 Jan, 2014 [facility] [address] [id number] [address] [place] [address], [place] [address] Jan, [facility] [place] [facility] [address] [id number] [address] [place] [address], [place] [address] Jan, [facility] [place] [facility] [address] [id number] [address] [place] [address], [place] [address] Jan, [facility] [place] [facility] [address] [id number] [address] [place] [address], [place] [address] Jan, [facility] [address] [id number] [address] [place] [address], [place] [address] Jan, [facility] [place] [facility] [address] [id number] [address] [place] [address], [place] [address] Jan, [facility] [address] [id number] [address] [place] [address], [place] [address] 29 Dec, 2013 [facility] [place] [facility] [address] [id number] [address] [place] [address], [place] [address] 29 Dec, 2013 [facility] [place] [facility] [address] [id number] [address] [place] [address], [place] [address] 04 Dec, 2013 [facility] [place] [facility] [address] [id number] [address] [place] [address], [place] [address] 04 Dec, 2013 [facility] [place] [facility] [address] [id number] [address] [place] [address], [place] [address] 14 Oct, 2013 [facility] [place] [facility] [address] [id number] [address] [place] [address], [place] [address] 14 Oct, 2013 [facility] [place] [facility] [address] [id number] [address] [place] [address], [place] [address] Oct, [facility] [place] [facility] [address] [id number] [address] [place] [address], [place] [address] Oct, 2013 [facility] [place] [facility] [address] [id number] [address] [place] [address], [place] [address] Oct, 2013 [facility] [place] [facility] [address] [id number] [address] [place] [address], [place] [address] Oct, 2013 [facility] [address] [id number] [address] [place] [address], [place] [address] Oct, [facility] [address] [id number] [address] [place] [address], [place] [address] Oct, [facility] [address] [id number] [address] [place] [address], [place] [address] Sep, [facility] [address] [id number] [address] [place] [address], [place] [address] Sep, [facility] [address] [id number] [address] [place] [address], [place] [address] Sep, [facility] [address] [id number] [address] [place] [address], [place] [address] Sep, [facility] [address] [id number] [address] [place] [address], [place] [address] Sep, [facility] [address] [id number] [address] [place] [address], [place] [address] Sep, [facility] [address] [id number] [address] [place] [address], [place] [address] Sep, [facility] [address] [id number] [address] [place] [address], [place] [address] Sep, [facility] [address] [id number] [address] [place] [address], [place] [address] Sep, [facility] [address] [id number] [address] [place] [address], [place] [address] Sep, [facility] [place] [facility] [address] [id number] [address] [place] [address], [place] [address] August, [facility] [address] [id number] [address] [place] [address], [place] [address] August, [facility] [address] [id number] [address] [place] [address], [place] [address] August, [facility] [address] [id number] [address] [place] [address], [place] [address] August, [facility] [address] [id number] [address] [place] [address], [place] [address] August, [facility] [address] [id number] [address] [place] [address], [place] [address] August, [facility] [address] [id number] [address] [place] [address], [place] [address] August, [facility] [address] [id number] [address] [place] [address], [place] [address] August, [facility] [address] [id number] [address] [place] [address], [place] [address] August, [facility] [address] [id number] [address] [place] [address], [place] [address] August, [facility] [address] [id number] [address] [place] [address], [place] [address] August, [facility] [address] [id number] [address] [place] [address], [place] [address] August, [facility] [address] [id number] [address] [place] [address], [place] [address] Jul, [facility] [address] [id number] [address] [place] [address], [place] [address] Jul, [facility] [address] [id number] [address] [place] [address], [place] [address] Jul, [facility] [address] [id number] [address] [place] [address], [place] [address] Jul, [facility] [place] [facility] [address] [id number] [address] [place] [address], [place] [address] Jul, [facility] [address] [id number] [address] [place] [address], [place] [address] Jul, [facility] [place] [facility] [address] [id number] [address] [address] Jun, [facility] [address] [id number] [address] [place] [address], [place] [address] Jun, [facility] [address] [id number] [address] [place] [address], [place] [address] May, [facility] [address] [id number] [address] [place] [address], [place] [address] May, [facility] [address] [id number] [address] [place] [address], [place] [address] Apr, [facility] [address] [id number] [address] [place] [address], [place] [address] Apr, [facility] [address] [id number] [address] [place] [address], [place] [address] Apr, [facility] [address] [id number] [address] [place] [address], [place] [address] Apr, [facility] [address] [id number] [address] [place] [address], [place] [address] Apr, [facility] [address] [id number] [address] [place] [address], [place] [address] Apr, [facility] [address] [id number] [address] [place] [address], [place] [address] Apr, [facility] [address] [id number] [address] [place] [address], [place] [address] Apr, [facility] [address] [id number] [address] [place] [address], [place] [address] Apr, [facility] [address] [id number] [address] [place] [address], [place] [address] Apr, [facility] [address] [id number] [address] [place] [address], [place] [address] Apr, [facility] [address] [id number] [address] [place] [address], [place] [address] Apr, [facility] [address] [id number] [address] [place] [address], [place] [address] Apr, [facility] [address] [id number] [address] [place] [address], [place] [address] Mar, [facility] [address] [id number] [address] [place] [address], [place] [address] Mar, [facility] [address] [id number] [address] [place] [address], [place] [address] Mar, [facility] [address] [id number] [address] [place] [address], [place] [address] Mar, [facility] [address] [id number] [address] [place] [address], [place] [address] Feb, [facility] [address] [id number] [address] [place] [address], [place] [address] Feb, [facility] [address] [id number] [address] [place] [address], [place] [address] Feb, [facility] [address] [id number] [address] [place] [address], [place] [address] Feb, [facility] [address] [id number] [address] [place] [id number] 14 Jan, 2013 [facility] [address] [id number] [address] [place] [id number] 14 Jan, 2013 [facility] [address] [id number] [address] [place] [id number] 11 Jan, 2013 [facility] [address] [id number] [address] [place] [address], [place] [address] 11 Jan, 2013 [facility] [address] [id number] [address] [place] [id number] 10 Jan, 2013 [facility] [address] [id number] [address] [place] [id number] 10 Jan, 2013 [facility] [address] [id number] [address] [place] [address], [place] [address] Jan, [facility] [address] [id number] [address] [place] [address], [place] [address] Jan, [facility] [address] [id number] [address] [place] [address], [place] [address] Jan, [facility] [address] [id number] [address] [place] [address], [place] [address] 26 Dec, 2012 [facility] [address] [id number] [address] [place] [address], [place] [address] 16 Dec, 2012 [facility] [address] [id number] [address] [place] [address], [place] [address] 16 Dec, 2012 [facility] [address] [id number] [address] [place] [address], [place] [address] Dec, [facility] [address] [id number] [address] [place] [address], [place] [address] Nov, [facility] [address] [id number] [address] [place] [address], [place] [address] Nov, [facility] [address] [id number] [address] [place] [address], [place] [address] Nov, [facility] [address] [id number] [address] [place] [address], [place] [address] Nov, [facility] [address] [id number] [address] [place] [address], [place] [address] Oct, [facility] [address] [id number] [address] [place] [address], [place] [address] Sep, [facility] [address] [id number] [address] [place] [address], [place] [address] August, [facility] [address] [id number] [address] [place] [address], [place] [address] August, [facility] [address] [id number] [address] [place] [address], [place] [address] August, [facility] [address] [id number] [address] [place] [address], [place] [address] August, [facility] [address] [id number] [address] [place] [address], [place] [address] August, [facility] [address] [id number] [address] [place] [address], [place] [address] August, [facility] [address] [id number] [address] [place] [address], [place] [address] August, [facility] [address] [id number] [address] [place] [address], [place] [address] August, [facility] [address] [id number] [address] [place] [address], [place] [address] August, [facility] [address] [id number] [address] [place] [address], [place] [address] August, [facility] [address] [id number] [address] [place] [address], [place] [address] August, [facility] [address] [id number] [address] [place] [address], [place] [address] August, [facility] [address] [id number] [address] [place] [address], [place] [address] Jul, [facility] [address] [id number] [address] [place] [address], [place] [address] Jul, [facility] [address] [id number] [address] [place] [address], [place] [address] 18 Jul, 2012 [facility] [address] [id number] [address] [place] [address], [place] [address] Jul, [facility] [address] [id number] [address] [place] [address], [place] [address] Jul, [facility] [address] [id number] [address] [place] [address], [place] [address] 08 Jul, 2012 [facility] [address] [id number] [place] [address] Jul, [facility] [address] [id number] [address] [place] [address], [place] [address] Jul, [facility] [address] [id number] [address] [place] [address], [place] [address] Jul, [facility] [address] [id number] [address] [place] [address], [place] [address] Jul, [facility] [address] [id number] [address] [place] [address], [place] [address] Jul, [facility] [address] [id number] [address] [place] [address], [place] [address] Jun, [facility] [address] [id number] [address] [place] [address], [place] [address] Jun, [facility] [address] [id number] [address] [place] [address], [place] [address] Jun, [facility] [address] [id number] [address] [place] [address], [place] [address] Jun, [facility] [address] [id number] [address] [place] [address], [place] [address] May, [facility] [address] [id number] [address] [place] [address], [place] [address] May, [facility] [address] [id number] [address] [place] [address], [place] [address] 05 May, 2012 [facility] [address] [id number] [address] [place] [address] May, [facility] [address] [id number] [address] [place] [address], [place] [address] May, [facility] [address] [id number] [address] [place] [address], [place] [address] May, [facility] [address] [id number] [address] [place] [address], [place] [address] Apr, [facility] [address] [id number] [address] [place] [address], [place] [address] 31 Apr, 2012 [facility] [address] [id number] [address] [place] [address], [place] [address] 30 Apr, 2012 [facility] [address] [id number] [address] [place] [address], [place] [address] 28 Apr, 2012 [facility] [address] [id number] [address] [place] [address], [place] [address] 15 Mar, 2012 [facility] [address] [id number] [address] [place] [address], [place] [address] 14 Mar, 2012 [facility] [address] [id number] [address] [place] [address], [place] [address] 14 Mar, 2012 [facility] [address] [id number] [address] [place] [address], [place] [address] 14 Mar, 2012 [facility] [address] [id number] [address] [place] [address], [place] [address] 14 Mar, 2012 [facility] [address] [id number] [address] [place] [address], [place] [address] 06 Mar, 2012 [facility] [address] [id number] [address] [place] [address], [place] [address] 06 Mar, 2012 [facility] [address] [id number] [address] [place] [address], [place] [address] Feb, [facility] [address] [id number] [address] [place] [address], [place] [address] Feb, [facility] [address] [id number] [address] [place] [address], [place] [address] Feb, [facility] [address] [id number] [address] [place] [address], [place] [address] Feb, [facility] [address] [id number] [address] [place] [address], [place] [address] Jan, [facility] [address] [id number] [address] [place] [address], [place] [address] Jan, [facility] [address] [id number] [address] [place] [address], [place] [address] Jan, [facility] [address] [id number] [address] [place] [address], [place] [address] Jan, [facility] [address] [id number] [address] [place] [address], [place] [address] Jan, [facility] [address] [id number] [address] [place] [address], [place] [address] Jan, [facility] [address] [id number] [address] [place] [address], [place] [address] Dec, [facility] [address] [id number] [address] [place] [address], [place] [address] Dec, [facility] [address] [id number] [address] [place] [address], [place] [address] Nov, [facility] [address] [id number] [address] [place] [address], [place] [address] Sep, [facility] [address] [id number] [address] [place] [address], [place] [address] August, [facility] [address] [id number] [address] [place] [address], [place] [address] August, [facility] [address] [id number] [address] [place] [address], [place] [address] August, [facility] [address] [id number] [address] [place] [address], [place] [address] August, [facility] [address] [id number] [address] [place] [address], [place] [address] August, [facility] [address] [id number] [address] [place] [address], [place] [address] Jun, [facility] [address] [id number] [address] [place] [address], [place] [address] Jun, [facility] [address] [id number] [address] [place] [address], [place] [address] Apr, [facility] [address] [id number] [address] [place] [address], [place] [address] Apr, [facility] [address] [id number] [address] [place] [address], [place] [address] 23 Mar, 2011 [facility] [address] [id number] [address] [place] [address], [place] [address] Feb, [facility] [address] [id number] [address] [place] [address], [place] [address] 14 Feb, 2011 [facility] [address] [id number] [address] [place] [address], [place] [address] 14 Feb, 2011 [facility] [address] [id number] [address] [place] [address], [place] [address] 17 Jan, 2011 [facility] [address] [id number] [address] [place] [address], [place] [address] 15 Jan, 2011 [facility] [address] [id number] [address] [place] [address], [place] [address] 15 Jan, 2011 [facility] [address] [id number] [address] [place] [address], [place] [address] 14 Jan, 2011 [facility] [address] [id number] [address] [place] [address], [place] [address] 15 May, 2010 [facility] [address] [id number] [address] [place] [address], [place] [address] 04 Mar, 2010 [facility] [address] [id number] [address] [place] [address], [place] [address] Oct, [facility] [address] [id number] [address] [place] [address], [place] [address] 14 Sep, 2009 [facility] [address] [id number] [address] [place] [address], [place] [address] 09 Mar, 2009 [facility] [address] [id number] [address] [place] [address], [place] [address] Jan, [facility] [address] [facility] [id number] [address] [place] [address] Jan, [facility] [address] [facility] [id number] [address] [place] [address] May, IMMUNIZATIONS No Known Immunizations SOCIAL HISTORY [...]
--- OUTSIDE RECORDS SUMMARY | 2019-11-23 05:53 | XMS REPORT ---
Author Author Liana Coe Doctor Organization [facility] Address Unknown Phone Unavailable Care Team Providers Care Manager Of School Name Role Phone Migration, Doctor Unavailable Unavailable PROBLEMS Type Condition ICD9-CM Code [id number] Code Onset Dates Condition S tatus SNOMED Code Problem Hematuria, unspecified type R31.9 Ac tive 91750257 Problem Abnormal renal ultrasound R93.429 Acti ve [id number] Problem Anxiety F41.9 Active 68427402 Problem Hypokalemia E87.6 Active 50236293 Problem Abnormal glucose R73.09 Active 102 634591 Problem Chronic pain due to trauma G89.21 Act juanis 740932734 Problem Neuroforaminal stenosis of spine M99.89 Active [id number] Problem Neck pain M54.2 Active 65060030 Problem Essential hypertension I10 Active 64697223 Problem Mixed hyperlipidemia E78.2 Active 82179912 ALLERGIES No Information ENCOUNTERS Encounter Location Date Diagnosis [facility] [address] [facility] [id number] [address] [place] [address] Dec, Neuroforaminal stenosis of s pine M99.89 [facility] [address] [facility] [id number] [address] [place] [phone] Nov, [facility] [address] [facility] [id number] [address] [place] [address] Nov, Neuroforaminal stenosis of s pine M99.89 [facility] [address] [facility] [id number] [address] [place] [phone] Nov, Acute non-recurrent maxillar y sinusitis J01.00 [facility] [address] [facility] [id number] [address] [place] [phone] Oct, Hypokalemia E87.6 [facility] [address] [facility] [id number] [address] [place] [phone] Oct, Wasp sting, undetermined int ent, initial encounter T63.464A and Cellulitis of left lower extremity L03.116 [place] [address] [id number] [address] [place] [address] Oct, Neuroforaminal stenosis of s pine M99.89 [place] [id number] [id number] [address] [place] [phone] Sep, [place] [address] [id number] [address] [place] [phone] Sep, [place] [address] [id number] [address] [place] [phone] 18 Sep, 2018 Routine screening for STI (s exually transmitted infection) Z11.3 [place] [address] [id number] [address] [place] [address] 14 Sep, 2018 Routine screening for STI (s exually transmitted infection) Z11.3 ; Well woman exam with routine gynecological exam Z01.419 and Breast cancer screening Z12.39 [place] [address] [id number] [address] [place] [address] Sep, Neuroforaminal stenosis of s pine M99.89 [place] [address] [id number] [address] [place] [address] August, Neuroforaminal stenosis of s pine M99.89 [place] [address] [id number] [address] [place] [address] August, Neuroforaminal stenosis of s pine M99.89 ; Chronic pain due to trauma G89.21 and Mixed hyperlipidemia E78.2 [place] [address] [id number] [address] [place] [phone] 16 Jul, 2018 Viral upper respiratory illn ess J06.9 and Acute non-recurrent frontal sinusitis J01.10 [place] [address] [id number] [address] [place] [phone] 15 Jul, 2018 Congestion of nasal sinus R0 9.81 [place] [address] [facility] [id number] [address] [place] [address] Jul, Neuroforaminal stenosis of s pine M99.89 and Essential hypertension I10 [facility] [address] [facility] [id number] [address] [place] [address] May, Neuroforaminal stenosis of s pine M99.89 [facility] [address] [id number] [address] [place] [phone] May, [facility] [address] [facility] [id number] [address] [place] [address] May, Congestion of nasal sinus R0 9.81 [place] [address] [facility] [id number] [address] [place] [address] May, [place] [address] [facility] [id number] [address] [place] [address] Apr, Neuroforaminal stenosis of s pine M99.89 [place] [address] [facility] [id number] [address] [place] [phone] Apr, Neuroforaminal stenosis of s pine M99.89 and Chronic pain due to trauma G89.21 [place] [address] [facility] [id number] [address] [place] [address] Mar, UTI (urinary tract infection ) N39.0 [place] [address] [facility] [id number] [address] [place] [address] Mar, Vertigo R42 [place] [address] [facility] [id number] [address] [place] [address] Mar, Neuroforaminal stenosis of s pine M99.89 [facility] [address] [facility] [id number] [address] [place] [address] Feb, Extensor tendon disruption M 67.89 [facility] [address] [facility] [id number] [address] [place] [address] Feb, Neuroforaminal stenosis of s pine M99.89 and High risk medication use Z79.899 [place] [address] [place] [id number] [address] [place] [address] Jan, Hypokalemia E87.6 [place] [address] [address] Jan, Flank pain R10.9 and Acute r ight-sided low back pain without sciatica M54.5 [place] [address] [address] Jan, Hypokalemia E87.6 [place] [address] [place] [id number] [place] [address] Jan, [place] [address] [address] Jan, URI, acute J06.9 [place] [address] [address] Jan, Neuroforaminal stenosis of s pine M99.89 [place] [address] [address] 13 Dec, 2017 Lateral epicondylitis, right elbow M77.11 [place] [address] [address] 11 Dec, 2017 Allergic rhinitis due to monica rosalina, unspecified seasonality J30.1 and Allergic conjunctivitis of both eyes H10.13 [place] [address] [address] 10 Dec, 2017 Neuroforaminal stenosis of s pine M99.89 [place] [address] [address] 06 Dec, 2017 Mixed hyperlipidemia E78.2 [place] [address] [place] [id number] [place] [address] 05 Dec, 2017 Abnormal glucose R73.09 ; Ab normal renal ultrasound R93.429 ; Dysuria R30.0 ; Cystitis without hematuria N30.90 ; Hypokalemia E87.6 ; Mixed hyperlipidemia E78.2 and Hematuria, unspecified type R31.9 [place] [address] [facility] [id number] [address] [place] [address] Nov, Hypokalemia E87.6 ; Mixed hy perlipidemia E78.2 and Hematuria, unspecified type R31.9 [place] [address] [place] [id number] [address] [place] [address] Nov, [place] [address] [facility] [id number] [address] [place] [address] Nov, Hypokalemia E87.6 [place] [address] [place] [id number] [place] [address] Nov, [place] [address] [place] [id number] [place] [address] Nov, Abnormal renal ultrasound R9 3.429 [place] [address] [place] [id number] [address] [place] [address] Nov, Abnormal renal ultrasound R9 3.429 [place] [address] [address] Nov, Hematuria, unspecified type R31.9 and Neuroforaminal stenosis of spine M99.89 [place] [address] [place] [id number] [address] [place] [address] Nov, Dysuria R30.0 [place] [address] [place] [id number] [address] [place] [address] Oct, Lateral epicondylitis, right elbow M77.11 [place] [address] [place] [id number] [address] [place] [address] Oct, Neuroforaminal stenosis of s pine M99.89 ; Visit for TB skin test Z11.1 and Essential hypertension I10 [place] [address] [place] [id number] [address] [place] [address] Oct, [place] [address] [id number] [address] [place] [address] 12 Oct, 2017 Neuroforaminal stenosis of s pine M99.89 [place] [address] [id number] [address] [place] [address] 10 Oct, 2017 Visit for TB skin test Z11.1 [place] [address] [id number] [address] [place] [phone] 05 Oct, 2017 Cystitis without hematuria N 30.90 [place] [address] [id number] [address] [place] [address] 28 Sep, 2017 Screening breast examination Z12.39 [place] [address] [id number] [address] [place] [phone] 26 Sep, 2017 Dysuria R30.0 and Cystitis w ithout hematuria N30.90 [place] [address] [id number] [address] [place] [address] 14 Sep, 2017 Essential hypertension I10 a nd Neuroforaminal stenosis of spine M99.89 [place] [address] [id number] [address] [place] [address] 04 Sep, 2017 Abnormal glucose R73.09 [place] [address] [facility] [id number] [address] [place] [address] August, Lateral epicondylitis, right elbow M77.11 [place] [address] [facility] [id number] [address] [place] [address] August, Screen for STD (sexually tra nsmitted disease) Z11.3 [place] [address] [id number] [address] [place] [phone] August, Neuroforaminal stenosis of s pine M99.89 ; Mixed hyperlipidemia E78.2 ; Elevated fasting glucose R73.01 ; Screening mammogram, encounter for Z12.31 and Encounter for well woman exam without gynecological exam Z00.00 [place] [address] [id number] [address] [place] [address] August, Neuroforaminal stenosis of s jose M99.89 [facility] [address] [id number] [address] [place] [address] August, Essential hypertension I10 ; Hypokalemia E87.6 and Mixed hyperlipidemia E78.2 [facility] [address] [id number] [address] [place] [address] Jul, [facility] [address] [id number] [address] [place] [address] Jul, Neuroforaminal stenosis of s jose M99.89 [facility] [address] [id number] [address] [place] [address] Jul, Lateral epicondylitis, right elbow M77.11 [facility] [address] [id number] [address] [place] [address] Jul, [facility] [address] [id number] [address] [place] [address] Jun, High ankle sprain of right l ower extremity, initial encounter S93.431A [facility] [address] [id number] [address] [place] [address] Jun, Essential hypertension I10 [facility] [address] [id number] [address] [place] [address] Jun, [facility] [address] [id number] [address] [place] [address] Jun, [facility] [address] [id number] [address] [place] [address] Jun, Neuroforaminal stenosis of s jose M99.89 [facility] [address] [id number] [address] [place] [address] Jun, Pain of right upper extremit y M79.601 and Essential hypertension I10 [facility] [address] [id number] [address] [place] [address] Jun, [facility] [id number] [place] [address] Jun, Dysuria R30.0 ; Acute cystit is with hematuria N30.01 and Screen for STD (sexually transmitted disease) Z11.3 [place] [id number] [place] [address] May, Chronic pain due to trauma G 89.21 [place] [address] [address] May, Essential hypertension I10 [address] [address] May, Neuroforaminal stenosis of s jose M99.[address] [address] Apr, Allergic reaction, initial e ncounter T78.40XA [address] [address] Apr, Low back pain, unspecified b ack pain laterality, unspecified chronicity, with sciatica presence unspecified M54.5 ; Acute cystitis with hematuria N30.01 ; Neuroforaminal stenosis of spine M99.89 ; Bilateral acute serous otitis media, recurrence not specified H65.03 ; Mixed hyperlipidemia E78.2 ; Essential hypertension I10 ; Immunization counseling Z71.89 and Encounter for immunization Z23 [address] [address] Apr, Neck pain M54.[address] [address] Mar, Neuroforaminal stenosis of s pine M99.89 [place] [address] [address] Mar, Pharyngitis due to other org anism J02.[address] [address] Feb, Neuroforaminal stenosis of s pine M99.89 [facility] [address] [id number] [address] [place] [address] Feb, UTI (urinary tract infection ) N39.0 [facility] [address] [id number] [address] [place] [address] Feb, Recent urinary tract infecti on Z87.440 ; Neuroforaminal stenosis of spine M99.89 ; Neck pain M54.2 ; Chronic pain due to trauma G89.21 and Recurrent UTI N39.0 [facility] [address] [id number] [address] [place] [address] Feb, [facility] [address] [id number] [address] [place] [address] Jan, Neuroforaminal stenosis of s pine M99.89 [facility] [address] [id number] [address] [place] [address] Dec, Neuroforaminal stenosis of s pine M99.89 [facility] [address] [id number] [address] [place] [address] Dec, Acute seasonal allergic rhin itis due to pollen J30.1 [facility] [address] [id number] [address] [place] [address] Dec, [facility] [address] [id number] [address] [place] [address] Dec, Acute seasonal allergic rhin itis, unspecified trigger J30.2 ; Allergic conjunctivitis of both eyes H10.13 and Dysfunction of both eustachian tubes H69.83 [facility] [address] [id number] [address] [place] [address] Dec, [facility] [address] [id number] [address] [place] [address] Dec, Nevus D22.9 [facility] [address] [id number] [address] [place] [address] Nov, Chronic pain due to trauma G 89.21 and Neuroforaminal stenosis of spine M99.89 [facility] [address] [id number] [address] [place] [address] Nov, Neuroforaminal stenosis of s pine M99.89 ; Essential hypertension I10 ; Mixed hyperlipidemia E78.2 ; Hypokalemia E87.6 ; Neck pain M54.2 and Nevus D22.9 [facility] [address] [id number] [address] [place] [address] Oct, Neuroforaminal stenosis of s pine M99.89 [facility] [address] [id number] [address] [place] [address] Sep, Neuroforaminal stenosis of s pine M99.89 [facility] [address] [id number] [address] [place] [address] Sep, [facility] [address] [id number] [address] [place] [address] August, [facility] [address] [id number] [address] [place] [address] August, Neck pain M54.2 and Neurofor aminal stenosis of spine M99.89 [facility] [address] [id number] [address] [place] [address] August, Routine gynecological examin ation Z01.419 and Screening breast examination Z12.39 [facility] [address] [id number] [address] [place] [address] Jul, [facility] [address] [id number] [address] [place] [address] Jul, [facility] [address] [id number] [address] [place] [address] Jul, Neuroforaminal stenosis of s pine M99.89 [facility] [address] [id number] [address] [place] [address] Jul, [facility] [address] [facility] [id number] [address] [place] [address] Jul, Neuroforaminal stenosis of l umbar 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 [facility] [address] [facility] [id number] [address] [place] [address] Jul, [facility] [address] [place] [id number] [address] [place] [address] Jul, [facility] [address] [facility] [id number] [address] [place] [address] Jun, Neuroforaminal stenosis of s jose M99.89 [place] [address] [place] [id number] [address] [place] [address] Jun, Uterine leiomyoma, unspecifi ed location D25.9 and Allergic reaction caused by a drug, initial encounter T78.40XA [place] [address] [place] [address] Jun, [place] [address] [facility] [id number] [address] [place] [address] May, UTI symptoms R39.9 and Pain of right sacroiliac joint M53.3 [place] [address] [place] [id number] [address] [place] [address] May, Neuroforaminal stenosis of s jose M99.89 [place] [address] [place] [address] May, [place] [address] [place] [id number] [address] [place] [address] May, Acute mucoid otitis media of left ear H65.112 and Acute non- recurrent maxillary sinusitis J01.00 [place] [address] [place] [id number] [address] [place] [address] May, Acute bacterial conjunctivit is of both eyes H10.33 ; Left arm pain M79.602 and Hypokalemia E87.6 [place] [address] [place] [id number] [address] [place] [address] Apr, [place] [address] [facility] [id number] [address] [place] [address] Apr, Neuroforaminal stenosis of s pine M99.89 ; Neck pain M54.2 ; Chronic pain due to trauma G89.21 ; Mixed hyperlipidemia E78.2 ; Essential hypertension I10 and Hypokalemia E87.6 [place] [address] [id number] [address] [place] [address] Mar, Oral candidiasis B37.0 ; Nathaniel roforaminal stenosis of spine M99.89 ; Neck pain M54.2 and Chronic pain due to trauma G89.21 [place] [address] [place] [id number] [address] [place] [address] Feb, [place] [address] [place] [id number] [address] [place] [address] Feb, [place] [address] [place] [id number] [address] [place] [address] Feb, UTI (urinary tract infection ) N39.0 [place] [address] [place] [id number] [address] [place] [address] Feb, Dysuria R30.0 [place] [address] [place] [id number] [address] [place] [address] Feb, Dysuria R30.0 [place] [address] [place] [id number] [address] [place] [phone] 02 Feb, 2016 Neuroforaminal stenosis of s pine M99.89 ; Neck pain M54.2 ; Essential hypertension I10 ; Chronic pain due to trauma G89.21 ; Dysuria R30.0 ; Abnormal MRI, shoulder R93.8 and Acute cystitis without hematuria N30.00 [place] [address] [place] [id number] [address] [place] [phone] Jan, [place] [address] [place] [id number] [address] [place] [phone] Jan, [facility] [address] [id number] [address] [place] [id number] Jan, [facility] [address] [id number] [address] [place] [phone] Jan, Abnormal MRI R93.8 [facility] [address] [id number] [address] [place] [id number] 29 Dec, 2015 [facility] [address] [id number] [address] [place] [phone] 15 Dec, 2015 Acute pain of left shoulder M25.512 [facility] [address] [id number] [address] [place] [phone] 09 Dec, 2015 [facility] [address] [id number] [address] [place] [id number] 08 Dec, 2015 [facility] [address] [id number] [address] [place] [id number] 07 Dec, 2015 Acute pain of left shoulder M25.512 [facility] [address] [id number] [address] [place] [phone] Nov, [facility] [address] [id number] [address] [place] [id number] 16 Nov, 2015 Neuroforaminal stenosis of s pine M99.89 ; Neck pain M54.2 ; Abnormal mammogram R92.8 ; Essential hypertension I10 and Chronic pain due to trauma G89.21 [facility] [address] [id number] [address] [place] [id number] Nov, [facility] [address] [id number] [address] [place] [phone] Oct, Acute stress disorder F43.0 [facility] [address] [id number] [address] [place] [phone] Oct, [facility] [address] [id number] [address] [place] [id number] 14 Oct, 2015 [facility] [address] [id number] [address] [place] [phone] Oct, [facility] [address] [id number] [address] [place] [phone] Sep, [facility] [address] [id number] [address] [place] [phone] August, [facility] [address] [id number] [address] [place] [id number] Jul, Neuroforaminal stenosis of s pine M99.89 ; Neck pain M54.2 ; Abnormal mammogram R92.8 and Essential hypertension I10 [facility] [address] [id number] [address] [place] [phone] Jul, [facility] [address] [id number] [address] [place] [phone] Jul, [facility] [address] [id number] [address] [place] [phone] Jul, Abnormal mammogram R92.8 [facility] [address] [id number] [address] [place] [phone] Jul, [facility] [address] [id number] [address] [place] [phone] Jul, UTI (urinary tract infection ) N39.0 [facility] [address] [id number] [address] [place] [id number] Jul, Dysuria R30.0 [facility] [address] [id number] [address] [place] [id number] Jun, [facility] [address] [id number] [address] [place] [phone] Jun, [facility] [address] [id number] [address] [place] [address] Jun, Hypokalemia E87.6 and Hematu martina R31.9 [facility] [address] [address] Jun, Hypokalemia E87.6 [place] [address] [address] Jun, [place] [address] [address] Jun, Hypokalemia E87.6 [place] [address] [address] Jun, Hypokalemia E87.6 [place] [address] [address] Jun, Neuroforaminal stenosis of s pine M99.89 ; Hypokalemia E87.6 ; Neck pain M54.2 ; Essential hypertension I10 ; Mixed hyperlipidemia E78.2 and Screening breast examination Z12.39 [place] [address] [address] Jun, Dysuria R30.0 ; UTI (urinary tract infection) N39.0 and Hematuria R31.9 [place] [address] [address] May, [place] [address] [address] May, High risk sexual behavior Z7 2.51 ; Hypokalemia E87.6 ; Neuroforaminal stenosis of spine M99.89 ; Neck pain M54.2 ; Essential hypertension I10 ; Mixed hyperlipidemia E78.2 ; STD exposure Z20.2 and Concern about STD in female without diagnosis Z71.[address] [address] 16 May, 2015 Neuroforaminal stenosis of s pine M99.89 ; Neck pain M54.2 ; Hypokalemia E87.6 ; Essential hypertension I10 and Mixed hyperlipidemia E78.2 [place] [address] [address] 11 May, 2015 [facility] [address] [place] [id number] [address] [place] [id number] 08 May, 2015 High risk sexual behavior Z7 2.51 ; STD exposure Z20.2 and Concern about STD in female without diagnosis Z71.1 [facility] [address] [place] [id number] [address] [place] [address] May, [place] [address] [address] Apr, Neuroforaminal stenosis of s pine M99.89 ; Mixed hyperlipidemia E78.2 ; Essential hypertension I10 and Hypokalemia E87.6 [place] [address] [address] Mar, [place] [address] [address] Mar, Hypokalemia E87.6 [place] [address] [address] Mar, Neuroforaminal stenosis of s pine M99.89 ; Mixed hyperlipidemia E78.2 ; Neck pain M54.2 ; Essential hypertension I10 ; Abnormal fasting glucose R73.09 ; Hypokalemia E87.6 and Constipation K59.00 [place] [address] [place] [id number] [address] [place] [address] Feb, Neuroforaminal stenosis of s pine M99.89 ; Mixed hyperlipidemia E78.2 ; Neck pain M54.2 ; Essential hypertension I10 ; Abnormal fasting glucose R73.09 ; Hypokalemia E87.6 and Constipation K59.00 [place] [address] [address] Feb, Elevated fasting blood sugar R73.01 [place] [address] [address] Feb, Elevated fasting blood sugar R73.01 [place] [address] [id number] [address] [place] [address] Feb, Hair loss L65.9 [place] [address] [facility] [id number] [address] [place] [address] Feb, Sinusitis J32.9 ; Essential hypertension I10 and Hair loss L65.9 [place] [address] [facility] [id number] [address] [place] [address] Jan, [place] [address] [facility] [id number] [address] [place] [address] Jan, Essential hypertension I10 ; Neuroforaminal stenosis of spine M99.89 ; Neck pain M54.2 ; Mixed hyperlipidemia E78.2 and Anxiety F41.9 [place] [address] [facility] [id number] [address] [place] [phone] Jan, [place] [address] [place] [id number] [place] [address] Jan, Mixed hyperlipidemia E78.2 ; Essential (primary) hypertension I10 ; Strain of muscle, fascia and tendon at neck level, subsequent encounter S16.1XXD and Tension-type headache, unspecified, not intractable G44.209 [place] [address] [id number] [address] [place] [address] Dec, Lumbar back pain 724.2 and N euroforaminal stenosis of spine 724.00 [place] [address] [id number] [address] [place] [address] Nov, [place] [address] [id number] [address] [place] [address] Nov, Lumbar back pain 724.2 and N euroforaminal stenosis of spine 724.00 [place] [address] [facility] [id number] [address] [place] [address] Nov, Edema 782.3 ; Lumbar back pa in 724.2 ; Essential hypertension, benign 401.1 ; Hyperlipemia 272.4 ; Neuroforaminal stenosis of spine 724.00 and Post-concussion headache 339.20 [facility] [address] [id number] [address] [place] [phone] Nov, [facility] [address] [id number] [address] [place] [id number] Nov, [facility] [address] [id number] [address] [place] [phone] Oct, Essential hypertension, sheridan gn 401.1 [facility] [address] [id number] [address] [place] [address] Oct, Edema 782.3 ; Lumbar back pa in 724.2 ; Essential hypertension, benign 401.1 ; Hyperlipemia 272.4 ; Neuroforaminal stenosis of spine 724.00 and Post-concussion headache 339.20 [facility] [address] [id number] [address] [place] [address] Oct, [facility] [address] [id number] [address] [place] [address] Oct, Edema 782.3 [facility] [address] [id number] [address] [place] [address] Oct, Lumbar back pain 724.2 [place] [address] [id number] [address] [place] [id number] Oct, Cervicalgia 723.1 ; Lumbar b ack pain 724.2 and High risk medication use V58.69 [facility] [address] [id number] [address] [place] [address] Sep, [facility] [address] [id number] [address] [place] [address] Sep, Lumbar strain 847.2 [facility] [address] [id number] [address] [place] [address] August, Edema 782.3 and Eustachian t ube dysfunction 381.81 [place] [address] [id number] [address] [place] [address] August, [facility] [address] [id number] [address] [place] [phone] August, Eustachian tube dysfunction 381.81 [facility] [address] [id number] [address] [place] [address] Jul, Otalgia 388.70 and Otitis me jonathon 382.9 [facility] [address] [id number] [address] [place] [address] Jul, [facility] [address] [id number] [address] [place] [phone] Jul, [facility] [address] [id number] [address] [place] [address] Jul, [facility] [address] [id number] [address] [place] [phone] Jul, [facility] [address] [id number] [address] [place] [address] Jul, [facility] [address] [id number] [address] [place] [phone] Jun, [facility] [address] [id number] [address] [place] [address] Jun, [facility] [address] [id number] [address] [place] [address] Jun, [facility] [address] [id number] [address] [place] [phone] May, [facility] [address] [id number] [address] [place] [address] May, [facility] [address] [id number] [address] [place] [phone] May, [facility] [address] [id number] [address] [place] [address] May, [facility] [address] [id number] [address] [place] [address], [place] [address] 17 May, 2014 [facility] [address] [id number] [address] [place] [address], [place] [address] May, 2014 [facility] [address] [id number] [address] [place] [address], [place] [address] May, 2014 [facility] [address] [id number] [address] [place] [address], [place] [address] May, 2014 [facility] [address] [id number] [address] [place] [address], [place] [address] May, 2014 [facility] [address] [id number] [address] [place] [address], [place] [address] May, [facility] [address] [id number] [address] [place] [address], [place] [address] Apr, [facility] [address] [id number] [address] [place] [address], [place] [address] Apr, [facility] [address] [id number] [address] [place] [address], [place] [address] Apr, [facility] [address] [id number] [address] [place] [address], [place] [address] Apr, [facility] [address] [id number] [address] [place] [address], [place] [address] Apr, [facility] [address] [id number] [address] [place] [address], [place] [address] Apr, [facility] [address] [id number] [address] [place] [address], [place] [address] Apr, [facility] [address] [id number] [address] [place] [address], [place] [address] Apr, [facility] [address] [id number] [address] [place] [address], [place] [address] Apr, [facility] [address] [id number] [address] [place] [address], [place] [address] Apr, [facility] [address] [id number] [address] [place] [address], [place] [address] Apr, [facility] [address] [id number] [address] [place] [address], [place] [address] Apr, [facility] [address] [id number] [address] [place] [address], [place] [address] Apr, [facility] [address] [id number] [address] [place] [address], [place] [address] Apr, [facility] [address] [id number] [address] [place] [address], [place] [address] Apr, [facility] [address] [id number] [address] [place] [address], [place] [address] Mar, [facility] [address] [id number] [address] [place] [address], [place] [address] Mar, [facility] [address] [id number] [address] [place] [address], [place] [address] Mar, [facility] [address] [id number] [address] [place] [address], [place] [address] Mar, [facility] [address] [id number] [address] [place] [address], [place] [address] Feb, [facility] [address] [id number] [address] [place] [id number] Feb, [facility] [address] [id number] [address] [place] [address] Feb, [facility] [address] [id number] [address] [place] [address], [place] [address] Feb, [facility] [address] [id number] [address] [place] [address], [place] [address] Jan, [facility] [address] [id number] [address] [place] [id number] Jan, [facility] [address] [id number] [address] [place] [address], [place] [address] Jan, [facility] [address] [id number] [address] [place] [address], [place] [address] Jan, [facility] [address] [id number] [address] [place] [address], [place] [address] Jan, [facility] [address] [id number] [address] [place] [address], [place] [address] Jan, [facility] [address] [id number] [address] [place] [address], [place] [address] Jan, [facility] [address] [id number] [address] [place] [address], [place] [address] Jan, [facility] [address] [id number] [address] [place] [address], [place] [address] Dec, [facility] [address] [id number] [address] [place] [address], [place] [address] Dec, [facility] [address] [id number] [address] [place] [address], [place] [address] Dec, [facility] [address] [id number] [address] [place] [address], [place] [address] Dec, [facility] [address] [id number] [address] [place] [address], [place] [address] Oct, [facility] [address] [id number] [address] [place] [address], [place] [address] Oct, [facility] [address] [id number] [address] [place] [address], [place] [address] Oct, [facility] [address] [id number] [address] [place] [address], [place] [address] Oct, [facility] [address] [id number] [address] [place] [address], [place] [address] Oct, [facility] [address] [id number] [address] [place] [address], [place] [address] Oct, [facility] [address] [id number] [address] [place] [address], [place] [address] Oct, [facility] [address] [id number] [address] [place] [address], [place] [address] Oct, [facility] [address] [id number] [address] [place] [address], [place] [address] Sep, [facility] [address] [id number] [address] [place] [address], [place] [address] Sep, [facility] [address] [id number] [address] [place] [address], [place] [address] Sep, [facility] [address] [id number] [address] [place] [address], [place] [address] Sep, [facility] [address] [id number] [address] [place] [address], [place] [address] Sep, [facility] [address] [id number] [address] [place] [address], [place] [address] Sep, [facility] [address] [id number] [address] [place] [address], [place] [address] Sep, [facility] [address] [id number] [address] [place] [address], [place] [address] Sep, [facility] [address] [id number] [address] [place] [address], [place] [address] Sep, [facility] [address] [id number] [address] [place] [address], [place] [address] Sep, [facility] [address] [id number] [address] [place] [address], [place] [address] August, [facility] [address] [id number] [address] [place] [address], [place] [address] August, [facility] [address] [id number] [address] [place] [address], [place] [address] August, [facility] [address] [id number] [address] [place] [address], [place] [address] August, [facility] [address] [id number] [address] [place] [address], [place] [address] August, [facility] [address] [id number] [address] [place] [address], [place] [address] August, [facility] [address] [id number] [address] [place] [address], [place] [address] August, [facility] [address] [id number] [address] [place] [address], [place] [address] August, [facility] [address] [id number] [address] [place] [address], [place] [address] August, [facility] [address] [id number] [address] [place] [address], [place] [address] August, [facility] [address] [id number] [address] [place] [address], [place] [address] August, [facility] [address] [id number] [address] [place] [address], [place] [address] August, [facility] [address] [id number] [address] [place] [address], [place] [address] Jul, [facility] [address] [id number] [address] [place] [address], [place] [address] Jul, [facility] [address] [id number] [address] [place] [address], [place] [address] Jul, [facility] [address] [id number] [address] [place] [address], [place] [address] Jul, [facility] [address] [id number] [address] [place] [address], [place] [address] Jul, [facility] [address] [id number] [address] [place] [address], [place] [address] Jul, [facility] [address] [id number] [address] [place] [address], [place] [address] Jun, [facility] [address] [id number] [address] [place] [address], [place] [address] Jun, [facility] [address] [id number] [address] [place] [address], [place] [address] May, [facility] [address] [id number] [address] [place] [address], [place] [address] May, [facility] [address] [id number] [address] [place] [address], [place] [address] Apr, [facility] [address] [id number] [address] [place] [address], [place] [address] Apr, [facility] [address] [id number] [address] [place] [address], [place] [address] Apr, [facility] [address] [id number] [address] [place] [address], [place] [address] Apr, [facility] [address] [id number] [address] [place] [address], [place] [address] Apr, [facility] [address] [id number] [address] [place] [address], [place] [address] Apr, [facility] [address] [id number] [address] [place] [address], [place] [address] Apr, [facility] [address] [id number] [address] [place] [address], [place] [address] Apr, [facility] [address] [id number] [address] [place] [address], [place] [address] Apr, [facility] [address] [id number] [address] [place] [address], [place] [address] Apr, [facility] [address] [id number] [address] [place] [address], [place] [address] Apr, [facility] [address] [id number] [address] [place] [address], [place] [address] Apr, [facility] [address] [id number] [address] [place] [address], [place] [address] Apr, [facility] [address] [id number] [address] [place] [address], [place] [address] Mar, [facility] [address] [id number] [address] [place] [address], [place] [address] Mar, [facility] [address] [id number] [address] [place] [address], [place] [address] Mar, [facility] [address] [id number] [address] [place] [address], [place] [address] Mar, [facility] [address] [id number] [address] [place] [address], [place] [address] Feb, [facility] [address] [id number] [address] [place] [address], [place] [address] Feb, [facility] [address] [id number] [address] [place] [address], [place] [address] Feb, [facility] [address] [id number] [address] [place] [id number] Feb, [facility] [address] [id number] [address] [place] [address], [place] [address] 14 Jan, 2013 [facility] [address] [id number] [address] [place] [id number] 14 Jan, 2013 [facility] [address] [id number] [address] [place] [id number] Jan, [facility] [address] [id number] [address] [place] [id number] 11 Jan, 2013 [facility] [address] [id number] [address] [place] [address], [place] [address] 10 Jan, 2013 [facility] [address] [id number] [address] [place] [id number] 10 Jan, 2013 [facility] [address] [id number] [address] [place] [id number] 09 Jan, 2013 [facility] [address] [id number] [address] [place] [address], [place] [address] Jan, [facility] [address] [id number] [address] [place] [address], [place] [address] Jan, [facility] [address] [id number] [address] [place] [address], [place] [address] 26 Dec, 2012 [facility] [address] [id number] [address] [place] [address], [place] [address] 16 Dec, 2012 [facility] [address] [id number] [address] [place] [address], [place] [address] 16 Dec, 2012 [facility] [address] [id number] [address] [place] [address], [place] [address] Dec, [facility] [address] [id number] [address] [place] [address], [place] [address] Nov, [facility] [address] [id number] [address] [place] [address], [place] [address] Nov, [facility] [address] [id number] [address] [place] [address], [place] [address] Nov, [facility] [address] [id number] [address] [place] [address], [place] [address] Nov, [facility] [address] [id number] [address] [place] [address], [place] [address] Oct, [facility] [address] [id number] [address] [place] [address], [place] [address] Sep, [facility] [address] [id number] [address] [place] [address], [place] [address] August, [facility] [address] [id number] [address] [place] [address], [place] [address] August, [facility] [address] [id number] [address] [place] [address], [place] [address] August, [facility] [address] [id number] [address] [place] [address], [place] [address] August, [facility] [address] [id number] [address] [place] [address], [place] [address] August, [facility] [address] [id number] [address] [place] [address], [place] [address] August, [facility] [address] [id number] [address] [place] [address], [place] [address] August, [facility] [address] [id number] [address] [place] [address], [place] [address] August, [facility] [address] [id number] [address] [place] [address], [place] [address] August, [facility] [address] [id number] [address] [place] [address], [place] [address] August, [facility] [address] [id number] [address] [place] [address], [place] [address] August, [facility] [address] [id number] [address] [place] [address], [place] [address] August, [facility] [address] [id number] [address] [place] [address], [place] [address] Jul, [facility] [address] [id number] [address] [place] [address], [place] [address] Jul, [facility] [address] [id number] [address] [place] [address], [place] [address] Jul, [facility] [address] [id number] [address] [place] [address], [place] [address] Jul, [facility] [address] [id number] [address] [place] [address], [place] [address] Jul, [facility] [address] [id number] [address] [place] [address], [place] [address] Jul, [facility] [address] [id number] [address] [place] [address], [place] [address] 04 Jul, 2012 [facility] [address] [id number] [address] [place] [id number] Jul, [facility] [address] [id number] [address] [place] [address], [place] [address] Jul, [facility] [address] [id number] [address] [place] [address], [place] [address] Jul, [facility] [address] [id number] [address] [place] [address], [place] [address] Jul, [facility] [address] [id number] [address] [place] [address], [place] [address] Jun, [facility] [address] [id number] [address] [place] [address], [place] [address] Jun, [facility] [address] [id number] [address] [place] [address], [place] [address] Jun, [facility] [address] [id number] [address] [place] [address], [place] [address] Jun, [facility] [address] [id number] [address] [place] [address], [place] [address] May, [facility] [address] [id number] [address] [place] [address], [place] [address] May, [facility] [address] [id number] [address] [place] [address], [place] [address] May, [facility] [address] [id number] [address] [place] [address], [place] [address] May, [facility] [address] [id number] [address] [place] [id number] May, [facility] [address] [id number] [address] [place] [address], [place] [address] May, [facility] [address] [id number] [address] [place] [id number] Apr, [facility] [address] [id number] [address] [place] [address] Apr, [facility] [address] [id number] [address] [place] [address], [place] [address] 30 Apr, 2012 [facility] [address] [id number] [address] [place] [address], [place] [address] Apr, [facility] [address] [id number] [address] [place] [address], [place] [address] 15 Mar, 2012 [facility] [address] [id number] [address] [place] [address], [place] [address] 14 Mar, 2012 [facility] [address] [id number] [address] [place] [address], [place] [address] 14 Mar, 2012 [facility] [address] [id number] [address] [place] [address], [place] [address] Mar, [facility] [address] [id number] [address] [place] [address], [place] [address] Mar, [facility] [address] [id number] [address] [place] [address], [place] [address] Mar, [facility] [address] [id number] [address] [place] [address], [place] [address] Mar, [facility] [address] [id number] [address] [place] [address], [place] [address] Feb, [facility] [address] [id number] [address] [place] [address], [place] [address] Feb, [facility] [address] [id number] [address] [place] [address], [place] [address] Feb, [facility] [address] [id number] [address] [place] [address], [place] [address] Feb, [facility] [address] [id number] [address] [place] [address], [place] [address] Jan, [facility] [address] [id number] [address] [place] [address], [place] [address] Jan, [facility] [address] [id number] [address] [place] [address], [place] [address] Jan, [facility] [address] [id number] [address] [place] [address], [place] [address] Jan, [facility] [address] [id number] [address] [place] [address], [place] [address] Jan, [facility] [address] [id number] [address] [place] [address], [place] [address] Jan, [facility] [address] [id number] [address] [place] [address], [place] [address] Dec, [facility] [address] [id number] [address] [place] [address], [place] [address] Dec, [facility] [address] [id number] [address] [place] [address], [place] [address] Nov, [facility] [address] [id number] [address] [place] [address], [place] [address] Sep, [facility] [address] [id number] [address] [place] [address], [place] [address] August, [facility] [address] [id number] [address] [place] [address], [place] [address] August, [facility] [address] [id number] [address] [place] [address], [place] [address] August, [facility] [address] [id number] [address] [place] [address], [place] [address] August, [facility] [address] [id number] [address] [place] [address], [place] [address] August, [facility] [address] [id number] [address] [place] [address], [place] [address] Jun, [facility] [address] [id number] [address] [place] [address], [place] [address] Jun, [facility] [address] [id number] [address] [place] [address], [place] [address] Apr, [facility] [address] [id number] [address] [place] [address], [place] [address] 20 Apr, 2011 [facility] [address] [id number] [address] [place] [address], [place] [address] 23 Mar, 2011 [facility] [address] [id number] [address] [place] [address], [place] [address] Feb, [facility] [address] [id number] [address] [place] [address], [place] [address] 14 Feb, 2011 [facility] [address] [id number] [address] [place] [address], [place] [address] 14 Feb, 2011 [facility] [address] [id number] [address] [place] [address], [place] [address] 17 Jan, 2011 [facility] [address] [id number] [address] [place] [address], [place] [address] 15 Jan, 2011 [facility] [address] [id number] [address] [place] [address], [place] [address] 15 Jan, 2011 [facility] [address] [id number] [address] [place] [address], [place] [address] 14 Jan, 2011 [facility] [address] [id number] [address] [place] [address], [place] [address] 15 May, 2010 [facility] [address] [id number] [address] [place] [address], [place] [address] 04 Mar, 2010 [facility] [address] [id number] [address] [place] [address], [place] [address] Oct, [facility] [address] [id number] [address] [place] [address], [place] [address] Sep, [facility] [address] [id number] [address] [place] [address], [place] [address] Mar, [facility] [address] [id number] [address] [place] [address], [place] [address] Jan, [facility] [address] [id number] [address] [place] [address], [place] [address] Jan, [facility] [address] [facility] [id number] [address] [place] [address] May, IMMUNIZATIONS No Known Immunizations SOCIAL HISTORY Never Assessed REASON FOR VISIT PLAN OF CARE VITAL SIGNS Height 62 in 2014-05-27 Weight 179.31 lbs 2014-05-27 Temperature 97.9 degrees Fahrenheit 2014-05-27 Heart Rate 84 bpm 2014-05-27 Respiratory Rate 20 2014-05-27 Blood pressure systolic 146 mmHg 2014-05-27 Blood pressure diastolic 98 mmHg 2014-05-27 MEDICATIONS Unknown Medications RESULTS No Results PROCEDURES No Known procedures INSTRUCTIONS MEDICATIONS ADMINISTERED No Known Medications MEDICAL (GENERAL) HISTORY Type Description Date Medical History hypertension Medical History Colposcopy with loop electro de excision of the cervix was performed 06/2012, mild squamous atypia (no definite dyplasia). Performed at [facility] Dr. Joy. Medical History Acute suppurative [...]
--- OUTSIDE RECORDS SUMMARY | 2019-11-23 05:53 | XMS REPORT ---
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 Name Role Phone PACHECO Fuchs Unavailable PROBLEMS Type Condition ICD9-CM Code GOQ87-XS Code Onset Dates Condition S tatus SNOMED Code Problem Hematuria, unspecified type R31.9 Ac tive 56524518 Problem Abnormal renal ultrasound R93.429 Acti ve [id number] Problem Anxiety F41.9 Active 70280531 Problem Hypokalemia E87.6 Active 20494257 Problem Abnormal glucose R73.09 Active 102 928339 Problem Chronic pain due to trauma G89.21 Act juanis 008598827 Problem Neuroforaminal stenosis of spine M99.89 Active 844180046564 Problem Neck pain M54.2 Active 14819043 Problem Essential hypertension I10 Active 07470981 Problem Mixed hyperlipidemia E78.2 Active 89619591 ALLERGIES No Information ENCOUNTERS Encounter Location Date Diagnosis [place] [address] [facility] [id number] [address] [place] [id number] Dec, Neuroforaminal stenosis of s pine M99.89 [place] [address] [facility] [id number] [address] [place] [id number] Nov, [place] [address] [facility] [id number] [address] [place] [phone] Nov, Neuroforaminal stenosis of s pine M99.89 [place] [address] [facility] [id number] [address] [place] [phone] Nov, Acute non-recurrent maxillar y sinusitis J01.00 [facility] [address] [facility] [id number] [address] [place] [id number] Oct, Hypokalemia E87.6 [facility] [address] [id number] [address] [place] [phone] Oct, Wasp sting, undetermined int ent, initial encounter T63.464A and Cellulitis of left lower extremity L03.116 [facility] [address] [facility] [id number] [address] [place] [id number] Oct, Neuroforaminal stenosis of s pine M99.89 [facility] [address] [id number] [address] [place] [id number] Sep, [place] [address] [facility] [id number] [address] [place] [phone] Sep, [place] [address] [facility] [id number] [address] [place] [id number] 18 Sep, 2018 Routine screening for STI (s exually transmitted infection) Z11.3 [place] [address] [address] [place] [id number] [address] [place] [id number] 14 Sep, 2018 Routine screening for STI (s exually transmitted infection) Z11.3 ; Well woman exam with routine gynecological exam Z01.419 and Breast cancer screening Z12.39 [place] [address] [facility] [id number] [address] [place] [id number] Sep, Neuroforaminal stenosis of s pine M99.89 [place] [address] [facility] [id number] [address] [place] [id number] August, Neuroforaminal stenosis of s pine M99.89 [place] [address] [facility] [id number] [address] [place] [address] August, Neuroforaminal stenosis of s pine M99.89 ; Chronic pain due to trauma G89.21 and Mixed hyperlipidemia E78.2 [place] [address] [facility] [id number] [address] [place] [phone] 16 Jul, 2018 Viral upper respiratory illn ess J06.9 and Acute non-recurrent frontal sinusitis J01.10 [place] [address] [facility] [id number] [address] [place] [phone] Jul, Congestion of nasal sinus R0 9.81 [facility] [address] [id number] [address] [place] [phone] Jul, Neuroforaminal stenosis of s jose M99.89 and Essential hypertension I10 [facility] [address] [id number] [address] [place] [phone] May, Neuroforaminal stenosis of s jose M99.89 [facility] [address] [id number] [address] [place] [phone] May, [facility] [address] [id number] [address] [place] [phone] May, Congestion of nasal sinus R0 9.81 [facility] [address] [id number] [address] [place] [id number] May, [facility] [address] [id number] [address] [place] [id number] Apr, Neuroforaminal stenosis of s jose M99.89 [facility] [address] [id number] [address] [place] [phone] Apr, Neuroforaminal stenosis of s jose M99.89 and Chronic pain due to trauma G89.21 [facility] [address] [id number] [address] [place] [id number] Mar, UTI (urinary tract infection ) N39.0 [facility] [address] [id number] [address] [place] [id number] Mar, Vertigo R42 [facility] [address] [id number] [address] [place] [phone] Mar, Neuroforaminal stenosis of s jose M99.89 [facility] [address] [id number] [address] [place] [phone] Feb, Extensor tendon disruption M 67.89 [facility] [address] [id number] [address] [place] [id number] Feb, Neuroforaminal stenosis of s pine M99.89 and High risk medication use Z79.899 [facility] [address] [id number] [address] [place] [phone] Jan, Hypokalemia E87.6 [facility] [address] [id number] [address] [place] [phone] Jan, Flank pain R10.9 and Acute r ight-sided low back pain without sciatica M54.5 [place] [address] [id number] [address] [place] [phone] Jan, Hypokalemia E87.6 [place] [address] [facility] [id number] [address] [place] [phone] Jan, [place] [address] [facility] [id number] [address] [place] [phone] Jan, URI, acute J06.9 [place] [address] [id number] [address] [place] [phone] Jan, Neuroforaminal stenosis of s jose M99.89 [place] [address] [facility] [id number] [address] [place] [id number] 13 Dec, 2017 Lateral epicondylitis, right elbow M77.11 [place] [address] [id number] [address] [place] [id number] 11 Dec, 2017 Allergic rhinitis due to monica rosalina, unspecified seasonality J30.1 and Allergic conjunctivitis of both eyes H10.13 [place] [address] [id number] [address] [place] [address] 10 Dec, 2017 Neuroforaminal stenosis of s pine M99.89 [facility] [address] [facility] [id number] [address] [place] [id number] 06 Dec, 2017 Mixed hyperlipidemia E78.2 [place] [address] [facility] [id number] [address] [place] [id number] Dec, Abnormal glucose R73.09 ; Ab normal renal ultrasound R93.429 ; Dysuria R30.0 ; Cystitis without hematuria N30.90 ; Hypokalemia E87.6 ; Mixed hyperlipidemia E78.2 and Hematuria, unspecified type R31.9 [place] [address] [facility] [id number] [address] [place] [id number] Nov, Hypokalemia E87.6 ; Mixed hy perlipidemia E78.2 and Hematuria, unspecified type R31.9 [place] [address] [facility] [id number] [address] [place] [phone] Nov, [place] [address] [facility] [id number] [address] [place] [id number] Nov, Hypokalemia E87.6 [place] [address] [facility] [id number] [address] [place] [id number] Nov, [place] [address] [place] [id number] [address] [place] [phone] Nov, Abnormal renal ultrasound R9 3.429 [place] [address] [id number] [address] [place] [phone] Nov, Abnormal renal ultrasound R9 3.429 [place] [address] [facility] [id number] [address] [place] [phone] Nov, Hematuria, unspecified type R31.9 and Neuroforaminal stenosis of spine M99.89 [place] [address] [facility] [id number] [address] [place] [address] Nov, Dysuria R30.0 [place] [address] [facility] [id number] [address] [place] [address] Oct, Lateral epicondylitis, right elbow M77.11 [place] [address] [facility] [id number] [address] [place] [phone] Oct, Neuroforaminal stenosis of s pine M99.89 ; Visit for TB skin test Z11.1 and Essential hypertension I10 [place] [address] [facility] [id number] [address] [place] [id number] 16 Oct, 2017 [place] [address] [facility] [id number] [address] [place] [id number] 12 Oct, 2017 Neuroforaminal stenosis of s pine M99.89 [place] [address] [facility] [id number] [address] [place] [address] 10 Oct, 2017 Visit for TB skin test Z11.1 [place] [address] [facility] [id number] [address] [place] [phone] 05 Oct, 2017 Cystitis without hematuria N 30.90 [place] [address] [facility] [id number] [address] [place] [id number] 28 Sep, 2017 Screening breast examination Z12.39 [place] [address] [address] [place] [id number] [address] [place] [id number] 26 Sep, 2017 Dysuria R30.0 and Cystitis w ithout hematuria N30.90 [place] [address] [facility] [id number] [address] [place] [address] 14 Sep, 2017 Essential hypertension I10 a nd Neuroforaminal stenosis of spine M99.89 [place] [address] [facility] [id number] [address] [place] [id number] 04 Sep, 2017 Abnormal glucose R73.09 [place] [address] [facility] [id number] [address] [place] [id number] August, Lateral epicondylitis, right elbow M77.11 [place] [address] [facility] [id number] [address] [place] [phone] August, Screen for STD (sexually tra nsmitted disease) Z11.3 [place] [address] [facility] [id number] [address] [place] [address] August, Neuroforaminal stenosis of s pine M99.89 ; Mixed hyperlipidemia E78.2 ; Elevated fasting glucose R73.01 ; Screening mammogram, encounter for Z12.31 and Encounter for well woman exam without gynecological exam Z00.00 [facility] [address] [id number] [address] [place] [id number] August, Neuroforaminal stenosis of s jose M99.89 [facility] [address] [id number] [address] [place] [id number] August, Essential hypertension I10 ; Hypokalemia E87.6 and Mixed hyperlipidemia E78.2 [facility] [address] [id number] [address] [place] [id number] Jul, [facility] [address] [id number] [address] [place] [address] Jul, Neuroforaminal stenosis of s jose M99.89 [place] [address] [facility] [id number] [address] [place] [id number] Jul, Lateral epicondylitis, right elbow M77.11 [place] [address] [id number] [address] [place] [id number] Jul, [facility] [address] [id number] [address] [place] [address] Jun, High ankle sprain of right l ower extremity, initial encounter S93.431A [facility] [address] [id number] [address] [place] [address] Jun, Essential hypertension I10 [facility] [address] [id number] [address] [place] [id number] Jun, [facility] [address] [id number] [address] [place] [id number] Jun, [facility] [address] [id number] [address] [place] [id number] Jun, Neuroforaminal stenosis of s jose M99.89 [facility] [address] [id number] [address] [place] [id number] Jun, Pain of right upper extremit y M79.601 and Essential hypertension I10 [facility] [id number] [place] [address] Jun, [place] [address] [address] Jun, Dysuria R30.0 ; Acute cystit is with hematuria N30.01 and Screen for STD (sexually transmitted disease) Z11.3 [place] [address] [address] May, Chronic pain due to trauma G 89.21 [place] [address] [place] [id number] [place] [address] May, Essential hypertension I10 [place] [address] [address] May, Neuroforaminal stenosis of s pine M99.89 [place] [address] [address] Apr, Allergic reaction, initial e ncounter T78.40XA [place] [address] [address] Apr, Low back pain, unspecified b ack pain laterality, unspecified chronicity, with sciatica presence unspecified M54.5 ; Acute cystitis with hematuria N30.01 ; Neuroforaminal stenosis of spine M99.89 ; Bilateral acute serous otitis media, recurrence not specified H65.03 ; Mixed hyperlipidemia E78.2 ; Essential hypertension I10 ; Immunization counseling Z71.89 and Encounter for immunization Z23 [place] [address] [place] [id number] [address] [place] [address] Apr, Neck pain M54.2 [place] [address] [address] Mar, Neuroforaminal stenosis of s pine M99.89 [place] [address] [address] Mar, Pharyngitis due to other org anism J02.8 [facility] [address] [id number] [address] [place] [address] Feb, Neuroforaminal stenosis of s pine M99.89 [facility] [address] [id number] [address] [place] [address] 08 Feb, 2017 UTI (urinary tract infection ) N39.0 [facility] [address] [id number] [address] [place] [address] 07 Feb, 2017 Recent urinary tract infecti on Z87.440 ; Neuroforaminal stenosis of spine M99.89 ; Neck pain M54.2 ; Chronic pain due to trauma G89.21 and Recurrent UTI N39.0 [facility] [address] [id number] [address] [place] [id number] Feb, [facility] [address] [id number] [address] [place] [address] Jan, Neuroforaminal stenosis of s pine M99.89 [facility] [address] [id number] [address] [place] [address] Dec, Neuroforaminal stenosis of s pine M99.89 [facility] [address] [id number] [address] [place] [id number] 18 Dec, 2016 Acute seasonal allergic rhin itis due to pollen J30.1 [facility] [address] [id number] [address] [place] [id number] Dec, [facility] [address] [id number] [address] [place] [id number] 08 Dec, 2016 Acute seasonal allergic rhin itis, unspecified trigger J30.2 ; Allergic conjunctivitis of both eyes H10.13 and Dysfunction of both eustachian tubes H69.83 [facility] [address] [id number] [address] [place] [id number] 07 Dec, 2016 [facility] [address] [id number] [address] [place] [id number] 06 Dec, 2016 Nevus D22.9 [facility] [address] [id number] [address] [place] [address] Nov, Chronic pain due to trauma G 89.21 and Neuroforaminal stenosis of spine M99.89 [facility] [address] [id number] [address] [place] [address] Nov, Neuroforaminal stenosis of s pine M99.89 ; Essential hypertension I10 ; Mixed hyperlipidemia E78.2 ; Hypokalemia E87.6 ; Neck pain M54.2 and Nevus D22.9 [facility] [address] [id number] [address] [place] [address] Oct, Neuroforaminal stenosis of s pine M99.89 [facility] [address] [id number] [address] [place] [address] Sep, Neuroforaminal stenosis of s pine M99.89 [facility] [address] [id number] [address] [place] [id number] Sep, [facility] [address] [id number] [address] [place] [address] August, [facility] [address] [id number] [address] [place] [id number] August, Neck pain M54.2 and Neurofor aminal stenosis of spine M99.89 [facility] [address] [id number] [address] [place] [id number] August, Routine gynecological examin ation Z01.419 and Screening breast examination Z12.39 [facility] [address] [id number] [address] [place] [id number] Jul, [facility] [address] [id number] [address] [place] [id number] Jul, [facility] [address] [id number] [address] [place] [address] Jul, Neuroforaminal stenosis of s pine M99.89 [facility] [address] [id number] [address] [place] [id number] Jul, [facility] [address] [id number] [address] [place] [id number] Jul, Neuroforaminal stenosis of l umbar 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 [facility] [address] [id number] [address] [place] [id number] Jul, [facility] [address] [id number] [address] [place] [id number] Jul, [facility] [address] [id number] [address] [place] [id number] Jun, Neuroforaminal stenosis of s jose M99.89 [facility] [address] [id number] [address] [place] [id number] Jun, Uterine leiomyoma, unspecifi ed location D25.9 and Allergic reaction caused by a drug, initial encounter T78.40XA [facility] [address] [id number] [address] [place] [address] Jun, [facility] [address] [id number] [address] [place] [address] May, UTI symptoms R39.9 and Pain of right sacroiliac joint M53.3 [facility] [address] [id number] [address] [place] [id number] May, Neuroforaminal stenosis of s jose M99.89 [facility] [address] [id number] [address] [place] [id number] May, [facility] [address] [id number] [address] [place] [address] May, Acute mucoid otitis media of left ear H65.112 and Acute non- recurrent maxillary sinusitis J01.00 [facility] [address] [id number] [address] [place] [id number] May, Acute bacterial conjunctivit is of both eyes H10.33 ; Left arm pain M79.602 and Hypokalemia E87.6 [facility] [address] [id number] [address] [place] [id number] Apr, [facility] [address] [facility] [id number] [address] [place] [phone] Apr, Neuroforaminal stenosis of s pine M99.89 ; Neck pain M54.2 ; Chronic pain due to trauma G89.21 ; Mixed hyperlipidemia E78.2 ; Essential hypertension I10 and Hypokalemia E87.6 [place] [address] [id number] [address] [place] [address] Mar, Oral candidiasis B37.0 ; Nathaniel roforaminal stenosis of spine M99.89 ; Neck pain M54.2 and Chronic pain due to trauma G89.21 [place] [address] [facility] [id number] [address] [place] [phone] Feb, [place] [address] [id number] [address] [place] [id number] Feb, [facility] [address] [id number] [address] [place] [phone] Feb, UTI (urinary tract infection ) N39.0 [place] [address] [facility] [id number] [address] [place] [id number] 09 Feb, 2016 Dysuria R30.0 [place] [address] [id number] [address] [place] [id number] 08 Feb, 2016 Dysuria R30.0 [place] [address] [facility] [id number] [address] [place] [address] 02 Feb, 2016 Neuroforaminal stenosis of s pine M99.89 ; Neck pain M54.2 ; Essential hypertension I10 ; Chronic pain due to trauma G89.21 ; Dysuria R30.0 ; Abnormal MRI, shoulder R93.8 and Acute cystitis without hematuria N30.00 [place] [address] [id number] [address] [place] [phone] Jan, [facility] [address] [id number] [address] [place] [id number] Jan, [facility] [address] [id number] [address] [place] [id number] Jan, [facility] [address] [id number] [address] [place] [phone] Jan, Abnormal MRI R93.8 [facility] [address] [id number] [address] [place] [id number] 29 Dec, 2015 [facility] [address] [id number] [address] [place] [id number] 15 Dec, 2015 Acute pain of left shoulder M25.512 [facility] [address] [id number] [address] [place] [id number] 09 Dec, 2015 [facility] [address] [id number] [address] [place] [id number] 08 Dec, 2015 [facility] [address] [id number] [address] [place] [id number] 07 Dec, 2015 Acute pain of left shoulder M25.512 [facility] [address] [id number] [address] [place] [id number] 23 Nov, 2015 [facility] [address] [id number] [address] [place] [id number] 16 Nov, 2015 Neuroforaminal stenosis of s pine M99.89 ; Neck pain M54.2 ; Abnormal mammogram R92.8 ; Essential hypertension I10 and Chronic pain due to trauma G89.21 [facility] [address] [id number] [address] [place] [id number] Nov, [facility] [address] [id number] [address] [place] [id number] Oct, Acute stress disorder F43.0 [facility] [address] [id number] [address] [place] [id number] Oct, [facility] [address] [id number] [address] [place] [phone] Oct, [facility] [address] [id number] [address] [place] [phone] Oct, [facility] [address] [id number] [address] [place] [phone] Sep, [facility] [address] [id number] [address] [place] [id number] August, [facility] [address] [id number] [address] [place] [id number] Jul, Neuroforaminal stenosis of s pine M99.89 ; Neck pain M54.2 ; Abnormal mammogram R92.8 and Essential hypertension I10 [facility] [address] [id number] [address] [place] [address] Jul, [facility] [address] [id number] [address] [place] [id number] Jul, [facility] [address] [id number] [address] [place] [id number] Jul, Abnormal mammogram R92.8 [facility] [address] [id number] [address] [place] [phone] Jul, [facility] [address] [id number] [address] [place] [id number] Jul, UTI (urinary tract infection ) N39.0 [facility] [address] [id number] [address] [place] [address] Jul, Dysuria R30.0 [facility] [address] [id number] [address] [place] [address] Jun, [facility] [address] [id number] [address] [place] [address] Jun, [facility] [address] [id number] [address] [place] [address] Jun, Hypokalemia E87.6 and Hematu martina R31.9 [place] [address] [address] Jun, Hypokalemia E87.6 [place] [address] [facility] [id number] [address] [place] [phone] Jun, [place] [address] [address] Jun, Hypokalemia E87.6 [place] [address] [address] [place] [id number] [place] [address] Jun, Hypokalemia E87.6 [place] [address] [address] Jun, Neuroforaminal stenosis of s pine M99.89 ; Hypokalemia E87.6 ; Neck pain M54.2 ; Essential hypertension I10 ; Mixed hyperlipidemia E78.2 and Screening breast examination Z12.39 [place] [address] [address] Jun, Dysuria R30.0 ; UTI (urinary tract infection) N39.0 and Hematuria R31.9 [place] [address] [address] May, [place] [address] [address] May, High risk sexual behavior Z7 2.51 ; Hypokalemia E87.6 ; Neuroforaminal stenosis of spine M99.89 ; Neck pain M54.2 ; Essential hypertension I10 ; Mixed hyperlipidemia E78.2 ; STD exposure Z20.2 and Concern about STD in female without diagnosis Z71.1 [place] [address] [address] 16 May, 2015 Neuroforaminal stenosis of s pine M99.89 ; Neck pain M54.2 ; Hypokalemia E87.6 ; Essential hypertension I10 and Mixed hyperlipidemia E78.2 [facility] [address] [place] [id number] [address] [place] [address] 11 May, 2015 [facility] [address] [address] 08 May, 2015 High risk sexual behavior Z7 2.51 ; STD exposure Z20.2 and Concern about STD in female without diagnosis Z71.1 [facility] [address] [address] 05 May, 2015 [facility] [address] [address] Apr, Neuroforaminal stenosis of s pine M99.89 ; Mixed hyperlipidemia E78.2 ; Essential hypertension I10 and Hypokalemia E87.6 [place] [address] [address] Mar, [facility] [address] [address] Mar, Hypokalemia E87.[address] [address] Mar, Neuroforaminal stenosis of s pine M99.89 ; Mixed hyperlipidemia E78.2 ; Neck pain M54.2 ; Essential hypertension I10 ; Abnormal fasting glucose R73.09 ; Hypokalemia E87.6 and Constipation K59.00 [facility] [address] [place] [id number] [address] [place] [address] Feb, Neuroforaminal stenosis of s pine M99.89 ; Mixed hyperlipidemia E78.2 ; Neck pain M54.2 ; Essential hypertension I10 ; Abnormal fasting glucose R73.09 ; Hypokalemia E87.6 and Constipation K59.00 [place] [address] [address] Feb, Elevated fasting blood sugar R73.01 [place] [address] [place] [id number] [address] Feb, Elevated fasting blood sugar R73.01 [facility] [address] [facility] [id number] [address] [place] [address] Feb, Hair loss L65.9 [facility] [address] [facility] [id number] [address] [place] [address] Feb, Sinusitis J32.9 ; Essential hypertension I10 and Hair loss L65.9 [facility] [address] [facility] [id number] [address] [place] [address] Jan, [place] [address] [facility] [id number] [place] [address] Jan, Essential hypertension I10 ; Neuroforaminal stenosis of spine M99.89 ; Neck pain M54.2 ; Mixed hyperlipidemia E78.2 and Anxiety F41.9 [place] [address] [address] [place] [id number] [address] [place] [address] Jan, [place] [address] [address] [place] [id number] [address] [place] [address] Jan, Mixed hyperlipidemia E78.2 ; Essential (primary) hypertension I10 ; Strain of muscle, fascia and tendon at neck level, subsequent encounter S16.1XXD and Tension-type headache, unspecified, not intractable G44.209 [place] [address] [facility] [id number] [address] [place] [address] Dec, Lumbar back pain 724.2 and N euroforaminal stenosis of spine 724.00 [place] [address] [facility] [id number] [address] [place] [address] Nov, [place] [address] [address] [place] [id number] [place] [address] Nov, Lumbar back pain 724.2 and N euroforaminal stenosis of spine 724.00 [place] [address] [address] [place] [id number] [address] [place] [address] Nov, Edema 782.3 ; Lumbar back pa in 724.2 ; Essential hypertension, benign 401.1 ; Hyperlipemia 272.4 ; Neuroforaminal stenosis of spine 724.00 and Post-concussion headache 339.20 [facility] [address] [id number] [address] [place] [address] Nov, [facility] [address] [id number] [address] [place] [address] Nov, [facility] [address] [id number] [address] [place] [address] Oct, Essential hypertension, sheridan gn 401.1 [facility] [address] [id number] [address] [place] [address] Oct, Edema 782.3 ; Lumbar back pa in 724.2 ; Essential hypertension, benign 401.1 ; Hyperlipemia 272.4 ; Neuroforaminal stenosis of spine 724.00 and Post-concussion headache 339.20 [place] [address] [id number] [address] [place] [address] Oct, [facility] [address] [id number] [address] [place] [address] Oct, Edema 782.3 [place] [address] [facility] [id number] [address] [place] [address] Oct, Lumbar back pain 724.2 [place] [address] [id number] [address] [place] [address] Oct, Cervicalgia 723.1 ; Lumbar b ack pain 724.2 and High risk medication use V58.69 [place] [address] [id number] [address] [place] [address] Sep, [place] [address] [facility] [id number] [address] [place] [address] Sep, Lumbar strain 847.2 [place] [address] [facility] [id number] [address] [place] [address] August, Edema 782.3 and Eustachian t ube dysfunction 381.81 [facility] [address] [id number] [address] [place] [address] August, [facility] [address] [facility] [id number] [address] [place] [address] August, Eustachian tube dysfunction 381.81 [facility] [address] [facility] [id number] [address] [place] [address] Jul, Otalgia 388.70 and Otitis me jonathon 382.9 [facility] [address] [facility] [id number] [address] [place] [address] Jul, [facility] [address] [facility] [id number] [address] [place] [address] Jul, [facility] [address] [facility] [id number] [address] [place] [address] Jul, [facility] [address] [facility] [id number] [address] [place] [address] Jul, [facility] [address] [facility] [id number] [address] [place] [address] Jul, [facility] [address] [facility] [id number] [address] [place] [address] Jun, [facility] [address] [facility] [id number] [address] [place] [address] Jun, [facility] [address] [id number] [address] [place] [address] Jun, [facility] [address] [id number] [address] [place] [address] May, [facility] [address] [facility] [id number] [address] [place] [address] May, [facility] [address] [facility] [id number] [address] [place] [phone] May, [facility] [place] [facility] [address] [id number] [address] [place] [address], [place] [address] May, 2014 [facility] [address] [id number] [address] [place] [address], [place] [address] May, 2014 [facility] [place] [facility] [address] [id number] [address] [place] [address], [place] [address] May, 2014 [facility] [place] [facility] [address] [id number] [address] [place] [address], [place] [address] May, 2014 [facility] [place] [facility] [address] [id number] [address] [place] [address], [place] [address] May, 2014 [facility] [place] [facility] [address] [id number] [address] [place] [address], [place] [address] May, 2014 [facility] [place] [facility] [address] [id number] [address] [place] [address], [place] [address] May, [facility] [place] [facility] [address] [id number] [address] [place] [address], [place] [address] Apr, [facility] [address] [id number] [address] [place] [address], [place] [address] Apr, [facility] [address] [id number] [address] [place] [address], [place] [address] Apr, [facility] [address] [id number] [address] [place] [address], [place] [address] Apr, [facility] [place] [facility] [address] [id number] [address] [place] [address], [place] [address] Apr, [facility] [place] [facility] [address] [id number] [address] [place] [address], [place] [address] Apr, [facility] [place] [facility] [address] [id number] [address] [place] [address], [place] [address] Apr, [facility] [place] [facility] [address] [id number] [address] [place] [address], [place] [address] Apr, [facility] [place] [facility] [address] [id number] [address] [place] [address], [place] [address] Apr, [facility] [address] [id number] [address] [place] [address], [place] [address] Apr, [facility] [address] [id number] [address] [place] [address], [place] [address] Apr, [facility] [address] [id number] [address] [place] [address], [place] [address] Apr, [facility] [address] [id number] [address] [place] [address], [place] [address] Apr, [facility] [address] [id number] [address] [place] [address], [place] [address] Apr, [facility] [address] [id number] [address] [place] [address], [place] [address] Apr, [facility] [address] [id number] [address] [place] [address], [place] [address] Mar, [facility] [place] [facility] [address] [id number] [address] [place] [address], [place] [address] Mar, [facility] [address] [id number] [address] [place] [address], [place] [address] Mar, [facility] [address] [id number] [address] [place] [address], [place] [address] Mar, [facility] [address] [id number] [address] [place] [address], [place] [address] Feb, [facility] [place] [facility] [address] [id number] [address] [place] [address] Feb, [facility] [place] [facility] [address] [id number] [address] [place] [address], [place] [address] Feb, [facility] [place] [facility] [address] [id number] [address] [place] [address], [place] [address] Feb, [facility] [place] [facility] [address] [id number] [address] [place] [address], [place] [address] Jan, [facility] [place] [facility] [address] [id number] [address] [place] [address], [place] [address] 07 Jan, 2014 [facility] [address] [id number] [address] [place] [address], [place] [address] Jan, [facility] [place] [facility] [address] [id number] [address] [place] [address], [place] [address] Jan, [facility] [place] [facility] [address] [id number] [address] [place] [address], [place] [address] Jan, [facility] [place] [facility] [address] [id number] [address] [place] [address], [place] [address] Jan, [facility] [address] [id number] [address] [place] [address], [place] [address] Jan, [facility] [place] [facility] [address] [id number] [address] [place] [address], [place] [address] Jan, [facility] [address] [id number] [address] [place] [address], [place] [address] 29 Dec, 2013 [facility] [place] [facility] [address] [id number] [address] [place] [address], [place] [address] 29 Dec, 2013 [facility] [place] [facility] [address] [id number] [address] [place] [address], [place] [address] 04 Dec, 2013 [facility] [place] [facility] [address] [id number] [address] [place] [address], [place] [address] 04 Dec, 2013 [facility] [place] [facility] [address] [id number] [address] [place] [address], [place] [address] 14 Oct, 2013 [facility] [place] [facility] [address] [id number] [address] [place] [address], [place] [address] 14 Oct, 2013 [facility] [place] [facility] [address] [id number] [address] [place] [address], [place] [address] Oct, [facility] [place] [facility] [address] [id number] [address] [place] [address], [place] [address] Oct, 2013 [facility] [place] [facility] [address] [id number] [address] [place] [address], [place] [address] Oct, 2013 [facility] [place] [facility] [address] [id number] [address] [place] [address], [place] [address] Oct, 2013 [facility] [address] [id number] [address] [place] [address], [place] [address] Oct, [facility] [address] [id number] [address] [place] [address], [place] [address] Oct, [facility] [address] [id number] [address] [place] [address], [place] [address] Sep, [facility] [address] [id number] [address] [place] [address], [place] [address] Sep, [facility] [address] [id number] [address] [place] [address], [place] [address] Sep, [facility] [address] [id number] [address] [place] [address], [place] [address] Sep, [facility] [address] [id number] [address] [place] [address], [place] [address] Sep, [facility] [address] [id number] [address] [place] [address], [place] [address] Sep, [facility] [address] [id number] [address] [place] [address], [place] [address] Sep, [facility] [address] [id number] [address] [place] [address], [place] [address] Sep, [facility] [address] [id number] [address] [place] [address], [place] [address] Sep, [facility] [address] [id number] [address] [place] [address], [place] [address] Sep, [facility] [place] [facility] [address] [id number] [address] [place] [address], [place] [address] August, [facility] [address] [id number] [address] [place] [address], [place] [address] August, [facility] [address] [id number] [address] [place] [address], [place] [address] August, [facility] [address] [id number] [address] [place] [address], [place] [address] August, [facility] [address] [id number] [address] [place] [address], [place] [address] August, [facility] [address] [id number] [address] [place] [address], [place] [address] August, [facility] [address] [id number] [address] [place] [address], [place] [address] August, [facility] [address] [id number] [address] [place] [address], [place] [address] August, [facility] [address] [id number] [address] [place] [address], [place] [address] August, [facility] [address] [id number] [address] [place] [address], [place] [address] August, [facility] [address] [id number] [address] [place] [address], [place] [address] August, [facility] [address] [id number] [address] [place] [address], [place] [address] August, [facility] [address] [id number] [address] [place] [address], [place] [address] Jul, [facility] [address] [id number] [address] [place] [address], [place] [address] Jul, [facility] [address] [id number] [address] [place] [address], [place] [address] Jul, [facility] [address] [id number] [address] [place] [address], [place] [address] Jul, [facility] [place] [facility] [address] [id number] [address] [place] [address], [place] [address] Jul, [facility] [address] [id number] [address] [place] [address], [place] [address] Jul, [facility] [place] [facility] [address] [id number] [facility] [place] [address] Jun, [facility] [address] [id number] [address] [place] [address], [place] [address] Jun, [facility] [address] [id number] [address] [place] [address], [place] [address] May, [facility] [address] [id number] [address] [place] [address], [place] [address] May, [facility] [address] [id number] [address] [place] [address], [place] [address] Apr, [facility] [address] [id number] [address] [place] [address], [place] [address] Apr, [facility] [address] [id number] [address] [place] [address], [place] [address] Apr, [facility] [address] [id number] [address] [place] [address], [place] [address] Apr, [facility] [address] [id number] [address] [place] [address], [place] [address] Apr, [facility] [address] [id number] [address] [place] [address], [place] [address] Apr, [facility] [address] [id number] [address] [place] [address], [place] [address] Apr, [facility] [address] [id number] [address] [place] [address], [place] [address] Apr, [facility] [address] [id number] [address] [place] [address], [place] [address] Apr, [facility] [address] [id number] [address] [place] [address], [place] [address] Apr, [facility] [address] [id number] [address] [place] [address], [place] [address] Apr, [facility] [address] [id number] [address] [place] [address], [place] [address] Apr, [facility] [address] [id number] [address] [place] [address], [place] [address] Apr, [facility] [address] [id number] [address] [place] [address], [place] [address] Mar, [facility] [address] [id number] [address] [place] [address], [place] [address] Mar, [facility] [address] [id number] [address] [place] [address], [place] [address] Mar, [facility] [address] [id number] [address] [place] [address], [place] [address] Mar, [facility] [address] [id number] [address] [place] [address], [place] [address] Feb, [facility] [address] [id number] [address] [place] [address], [place] [address] Feb, [facility] [address] [id number] [address] [place] [address], [place] [address] Feb, [facility] [address] [id number] [address] [place] [address], [place] [address] Feb, [facility] [address] [id number] [address] [place] [id number] 14 Jan, 2013 [facility] [address] [id number] [address] [place] [id number] 14 Jan, 2013 [facility] [address] [id number] [address] [place] [id number] 11 Jan, 2013 [facility] [address] [id number] [address] [place] [address], [place] [address] 11 Jan, 2013 [facility] [address] [id number] [address] [place] [id number] 10 Jan, 2013 [facility] [address] [id number] [address] [place] [id number] 10 Jan, 2013 [facility] [address] [id number] [address] [place] [address], [place] [address] Jan, [facility] [address] [id number] [address] [place] [address], [place] [address] Jan, [facility] [address] [id number] [address] [place] [address], [place] [address] Jan, [facility] [address] [id number] [address] [place] [address], [place] [address] 26 Dec, 2012 [facility] [address] [id number] [address] [place] [address], [place] [address] 16 Dec, 2012 [facility] [address] [id number] [address] [place] [address], [place] [address] 16 Dec, 2012 [facility] [address] [id number] [address] [place] [address], [place] [address] Dec, [facility] [address] [id number] [address] [place] [address], [place] [address] Nov, [facility] [address] [id number] [address] [place] [address], [place] [address] Nov, [facility] [address] [id number] [address] [place] [address], [place] [address] Nov, [facility] [address] [id number] [address] [place] [address], [place] [address] Nov, [facility] [address] [id number] [address] [place] [address], [place] [address] Oct, [facility] [address] [id number] [address] [place] [address], [place] [address] Sep, [facility] [address] [id number] [address] [place] [address], [place] [address] August, [facility] [address] [id number] [address] [place] [address], [place] [address] August, [facility] [address] [id number] [address] [place] [address], [place] [address] August, [facility] [address] [id number] [address] [place] [address], [place] [address] August, [facility] [address] [id number] [address] [place] [address], [place] [address] August, [facility] [address] [id number] [address] [place] [address], [place] [address] August, [facility] [address] [id number] [address] [place] [address], [place] [address] August, [facility] [address] [id number] [address] [place] [address], [place] [address] August, [facility] [address] [id number] [address] [place] [address], [place] [address] August, [facility] [address] [id number] [address] [place] [address], [place] [address] August, [facility] [address] [id number] [address] [place] [address], [place] [address] August, [facility] [address] [id number] [address] [place] [address], [place] [address] August, [facility] [address] [id number] [address] [place] [address], [place] [address] Jul, [facility] [address] [id number] [address] [place] [address], [place] [address] Jul, [facility] [address] [id number] [address] [place] [address], [place] [address] 18 Jul, 2012 [facility] [address] [id number] [address] [place] [address], [place] [address] Jul, [facility] [address] [id number] [address] [place] [address], [place] [address] Jul, [facility] [address] [id number] [address] [place] [address], [place] [address] 08 Jul, 2012 [facility] [address] [id number] [place] [address] Jul, [facility] [address] [id number] [address] [place] [address], [place] [address] Jul, [facility] [address] [id number] [address] [place] [address], [place] [address] Jul, [facility] [address] [id number] [address] [place] [address], [place] [address] Jul, [facility] [address] [id number] [address] [place] [address], [place] [address] Jul, [facility] [address] [id number] [address] [place] [address], [place] [address] Jun, [facility] [address] [id number] [address] [place] [address], [place] [address] Jun, [facility] [address] [id number] [address] [place] [address], [place] [address] Jun, [facility] [address] [id number] [address] [place] [address], [place] [address] Jun, [facility] [address] [id number] [address] [place] [address], [place] [address] May, [facility] [address] [id number] [address] [place] [address], [place] [address] May, [facility] [address] [id number] [address] [place] [address], [place] [address] 05 May, 2012 [facility] [address] [id number] [address] [place] [address] May, [facility] [address] [id number] [address] [place] [address], [place] [address] May, [facility] [address] [id number] [address] [place] [address], [place] [address] May, [facility] [address] [id number] [address] [place] [address], [place] [address] Apr, [facility] [address] [id number] [address] [place] [address], [place] [address] 31 Apr, 2012 [facility] [address] [id number] [address] [place] [address], [place] [address] 30 Apr, 2012 [facility] [address] [id number] [address] [place] [address], [place] [address] 28 Apr, 2012 [facility] [address] [id number] [address] [place] [address], [place] [address] 15 Mar, 2012 [facility] [address] [id number] [address] [place] [address], [place] [address] 14 Mar, 2012 [facility] [address] [id number] [address] [place] [address], [place] [address] 14 Mar, 2012 [facility] [address] [id number] [address] [place] [address], [place] [address] 14 Mar, 2012 [facility] [address] [id number] [address] [place] [address], [place] [address] 14 Mar, 2012 [facility] [address] [id number] [address] [place] [address], [place] [address] 06 Mar, 2012 [facility] [address] [id number] [address] [place] [address], [place] [address] 06 Mar, 2012 [facility] [address] [id number] [address] [place] [address], [place] [address] Feb, [facility] [address] [id number] [address] [place] [address], [place] [address] Feb, [facility] [address] [id number] [address] [place] [address], [place] [address] Feb, [facility] [address] [id number] [address] [place] [address], [place] [address] Feb, [facility] [address] [id number] [address] [place] [address], [place] [address] Jan, [facility] [address] [id number] [address] [place] [address], [place] [address] Jan, [facility] [address] [id number] [address] [place] [address], [place] [address] Jan, [facility] [address] [id number] [address] [place] [address], [place] [address] Jan, [facility] [address] [id number] [address] [place] [address], [place] [address] Jan, [facility] [address] [id number] [address] [place] [address], [place] [address] Jan, [facility] [address] [id number] [address] [place] [address], [place] [address] Dec, [facility] [address] [id number] [address] [place] [address], [place] [address] Dec, [facility] [address] [id number] [address] [place] [address], [place] [address] Nov, [facility] [address] [id number] [address] [place] [address], [place] [address] Sep, [facility] [address] [id number] [address] [place] [address], [place] [address] August, [facility] [address] [id number] [address] [place] [address], [place] [address] August, [facility] [address] [id number] [address] [place] [address], [place] [address] August, [facility] [address] [id number] [address] [place] [address], [place] [address] August, [facility] [address] [id number] [address] [place] [address], [place] [address] August, [facility] [address] [id number] [address] [place] [address], [place] [address] Jun, [facility] [address] [id number] [address] [place] [address], [place] [address] Jun, [facility] [address] [id number] [address] [place] [address], [place] [address] Apr, [facility] [address] [id number] [address] [place] [address], [place] [address] Apr, [facility] [address] [id number] [address] [place] [address], [place] [address] 23 Mar, 2011 [facility] [address] [id number] [address] [place] [address], [place] [address] Feb, [facility] [address] [id number] [address] [place] [address], [place] [address] 14 Feb, 2011 [facility] [address] [id number] [address] [place] [address], [place] [address] 14 Feb, 2011 [facility] [address] [id number] [address] [place] [address], [place] [address] 17 Jan, 2011 [facility] [address] [id number] [address] [place] [address], [place] [address] 15 Jan, 2011 [facility] [address] [id number] [address] [place] [address], [place] [address] 15 Jan, 2011 [facility] [address] [id number] [address] [place] [address], [place] [address] 14 Jan, 2011 [facility] [address] [id number] [address] [place] [address], [place] [address] 15 May, 2010 [facility] [address] [id number] [address] [place] [address], [place] [address] 04 Mar, 2010 [facility] [address] [id number] [address] [place] [address], [place] [address] Oct, [facility] [address] [id number] [address] [place] [address], [place] [address] 14 Sep, 2009 [facility] [address] [id number] [address] [place] [address], [place] [address] 09 Mar, 2009 [facility] [address] [id number] [address] [place] [address], [place] [address] Jan, [facility] [address] [facility] [id number] [address] [place] [address] Jan, [facility] [address] [facility] [id number] [address] [place] [address] May, IMMUNIZATIONS No Known Immunizations SOCIAL HISTORY [...]
--- OUTSIDE RECORDS SUMMARY | 2019-11-23 05:54 | XMS REPORT ---
Author Author Liana Coe Doctor Organization [facility] Address Unknown Phone Unavailable Care Team Providers Care Senior Abap Developer Name Role Phone Migration, Doctor Unavailable Unavailable PROBLEMS Type Condition ICD9-CM Code [id number] Code Onset Dates Condition S tatus SNOMED Code Problem Hematuria, unspecified type R31.9 Ac tive 47673898 Problem Abnormal renal ultrasound R93.429 Acti ve [id number] Problem Anxiety F41.9 Active 16365884 Problem Hypokalemia E87.6 Active 88449568 Problem Abnormal glucose R73.09 Active 102 507798 Problem Chronic pain due to trauma G89.21 Act juanis 341046794 Problem Neuroforaminal stenosis of spine M99.89 Active 582836332393 Problem Neck pain M54.2 Active 37127540 Problem Essential hypertension I10 Active 48732652 Problem Mixed hyperlipidemia E78.2 Active 22438625 ALLERGIES No Information ENCOUNTERS Encounter Location Date Diagnosis [facility] [address] [facility] [id number] [address] [place] [id number] Dec, Neuroforaminal stenosis of s pine M99.89 [facility] [address] [facility] [id number] [address] [place] [id number] Nov, [facility] [address] [facility] [id number] [address] [place] [phone] Nov, Neuroforaminal stenosis of s pine M99.89 [facility] [address] [facility] [id number] [address] [place] [id number] Nov, Acute non-recurrent maxillar y sinusitis J01.00 [facility] [address] [facility] [id number] [address] [place] [phone] Oct, Hypokalemia E87.6 [facility] [address] [facility] [id number] [address] [place] [address] Oct, Wasp sting, undetermined int ent, initial encounter T63.464A and Cellulitis of left lower extremity L03.116 [place] [address] [id number] [address] [place] [id number] Oct, Neuroforaminal stenosis of s pine M99.89 [place] [id number] [id number] [address] [place] [id number] Sep, [place] [address] [id number] [address] [place] [id number] Sep, [place] [address] [id number] [address] [place] [id number] 18 Sep, 2018 Routine screening for STI (s exually transmitted infection) Z11.3 [place] [address] [id number] [address] [place] [id number] 14 Sep, 2018 Routine screening for STI (s exually transmitted infection) Z11.3 ; Well woman exam with routine gynecological exam Z01.419 and Breast cancer screening Z12.39 [place] [address] [id number] [address] [place] [id number] Sep, Neuroforaminal stenosis of s pine M99.89 [place] [address] [id number] [address] [place] [id number] August, Neuroforaminal stenosis of s pine M99.89 [place] [address] [id number] [address] [place] [phone] August, Neuroforaminal stenosis of s pine M99.89 ; Chronic pain due to trauma G89.21 and Mixed hyperlipidemia E78.2 [place] [address] [id number] [address] [place] [id number] 16 Jul, 2018 Viral upper respiratory illn ess J06.9 and Acute non-recurrent frontal sinusitis J01.10 [place] [address] [id number] [address] [place] [id number] 15 Jul, 2018 Congestion of nasal sinus R0 9.81 [place] [address] [facility] [id number] [address] [place] [id number] Jul, Neuroforaminal stenosis of s pine M99.89 and Essential hypertension I10 [facility] [address] [facility] [id number] [address] [place] [address] May, Neuroforaminal stenosis of s pine M99.89 [facility] [address] [id number] [address] [place] [id number] May, [facility] [address] [facility] [id number] [address] [place] [phone] May, Congestion of nasal sinus R0 9.81 [place] [address] [facility] [id number] [address] [place] [id number] May, [place] [address] [facility] [id number] [address] [place] [id number] Apr, Neuroforaminal stenosis of s pine M99.89 [place] [address] [facility] [id number] [address] [place] [address] Apr, Neuroforaminal stenosis of s pine M99.89 and Chronic pain due to trauma G89.21 [place] [address] [facility] [id number] [address] [place] [address] Mar, UTI (urinary tract infection ) N39.0 [place] [address] [facility] [id number] [address] [place] [id number] Mar, Vertigo R42 [place] [address] [facility] [id number] [address] [place] [address] Mar, Neuroforaminal stenosis of s pine M99.89 [facility] [address] [facility] [id number] [address] [place] [phone] Feb, Extensor tendon disruption M 67.89 [facility] [address] [facility] [id number] [address] [place] [address] Feb, Neuroforaminal stenosis of s pine M99.89 and High risk medication use Z79.899 [place] [address] [place] [id number] [address] [place] [address] Jan, Hypokalemia E87.6 [place] [address] [address] Jan, Flank pain R10.9 and Acute r ight-sided low back pain without sciatica M54.5 [place] [address] [address] Jan, Hypokalemia E87.6 [place] [address] [place] [id number] [place] [address] Jan, [place] [address] [address] Jan, URI, acute J06.9 [place] [address] [address] Jan, Neuroforaminal stenosis of s pine M99.89 [place] [address] [address] 13 Dec, 2017 Lateral epicondylitis, right elbow M77.11 [place] [address] [address] 11 Dec, 2017 Allergic rhinitis due to monica rosalina, unspecified seasonality J30.1 and Allergic conjunctivitis of both eyes H10.13 [place] [address] [address] 10 Dec, 2017 Neuroforaminal stenosis of s pine M99.89 [place] [address] [address] 06 Dec, 2017 Mixed hyperlipidemia E78.2 [place] [address] [place] [id number] [place] [address] 05 Dec, 2017 Abnormal glucose R73.09 ; Ab normal renal ultrasound R93.429 ; Dysuria R30.0 ; Cystitis without hematuria N30.90 ; Hypokalemia E87.6 ; Mixed hyperlipidemia E78.2 and Hematuria, unspecified type R31.9 [place] [id number] [facility] [id number] [address] [place] [address] Nov, Hypokalemia E87.6 ; Mixed hy perlipidemia E78.2 and Hematuria, unspecified type R31.9 [place] [address] [place] [id number] [address] [place] [address] Nov, [place] [address] [facility] [id number] [address] [place] [phone] Nov, Hypokalemia E87.6 [place] [address] [place] [id number] [place] [address] Nov, [place] [address] [place] [id number] [place] [address] Nov, Abnormal renal ultrasound R9 3.429 [place] [address] [place] [id number] [address] [place] [address] Nov, Abnormal renal ultrasound R9 3.429 [place] [address] [address] Nov, Hematuria, unspecified type R31.9 and Neuroforaminal stenosis of spine M99.89 [place] [address] [place] [id number] [address] [place] [id number] Nov, Dysuria R30.0 [place] [address] [place] [id number] [address] [place] [phone] Oct, Lateral epicondylitis, right elbow M77.11 [place] [address] [place] [id number] [address] [place] [address] Oct, Neuroforaminal stenosis of s pine M99.89 ; Visit for TB skin test Z11.1 and Essential hypertension I10 [place] [address] [place] [id number] [address] [place] [phone] Oct, [place] [address] [id number] [address] [place] [address] 12 Oct, 2017 Neuroforaminal stenosis of s pine M99.89 [place] [address] [id number] [address] [place] [phone] 10 Oct, 2017 Visit for TB skin test Z11.1 [place] [address] [id number] [address] [place] [id number] 05 Oct, 2017 Cystitis without hematuria N 30.90 [place] [address] [id number] [address] [place] [id number] 28 Sep, 2017 Screening breast examination Z12.39 [place] [address] [id number] [address] [place] [address] 26 Sep, 2017 Dysuria R30.0 and Cystitis w ithout hematuria N30.90 [place] [address] [id number] [address] [place] [address] 14 Sep, 2017 Essential hypertension I10 a nd Neuroforaminal stenosis of spine M99.89 [place] [address] [id number] [address] [place] [address] 04 Sep, 2017 Abnormal glucose R73.09 [place] [address] [facility] [id number] [address] [place] [address] August, Lateral epicondylitis, right elbow M77.11 [place] [address] [facility] [id number] [address] [place] [address] August, Screen for STD (sexually tra nsmitted disease) Z11.3 [place] [address] [id number] [address] [place] [id number] August, Neuroforaminal stenosis of s pine M99.89 ; Mixed hyperlipidemia E78.2 ; Elevated fasting glucose R73.01 ; Screening mammogram, encounter for Z12.31 and Encounter for well woman exam without gynecological exam Z00.00 [place] [address] [id number] [address] [place] [address] August, Neuroforaminal stenosis of s jose M99.89 [facility] [address] [id number] [address] [place] [address] August, Essential hypertension I10 ; Hypokalemia E87.6 and Mixed hyperlipidemia E78.2 [facility] [address] [id number] [address] [place] [id number] Jul, [facility] [address] [id number] [address] [place] [address] Jul, Neuroforaminal stenosis of s jose M99.89 [facility] [address] [id number] [address] [place] [address] Jul, Lateral epicondylitis, right elbow M77.11 [facility] [address] [id number] [address] [place] [address] Jul, [facility] [address] [id number] [address] [place] [address] Jun, High ankle sprain of right l ower extremity, initial encounter S93.431A [facility] [address] [id number] [address] [place] [address] Jun, Essential hypertension I10 [facility] [address] [id number] [address] [place] [phone] Jun, [facility] [address] [id number] [address] [place] [id number] Jun, [facility] [address] [id number] [address] [place] [phone] Jun, Neuroforaminal stenosis of s jose M99.89 [facility] [address] [id number] [address] [place] [address] Jun, Pain of right upper extremit y M79.601 and Essential hypertension I10 [facility] [address] [id number] [address] [place] [phone] Jun, [facility] [address] [place] [address] Jun, Dysuria R30.0 ; Acute cystit is with hematuria N30.01 and Screen for STD (sexually transmitted disease) Z11.3 [place] [address] [place] [address] May, Chronic pain due to trauma G 89.21 [place] [address] [address] May, Essential hypertension I10 [address] [address] May, Neuroforaminal stenosis of s jose M99.[address] [address] Apr, Allergic reaction, initial e ncounter T78.40XA [address] [address] Apr, Low back pain, unspecified b ack pain laterality, unspecified chronicity, with sciatica presence unspecified M54.5 ; Acute cystitis with hematuria N30.01 ; Neuroforaminal stenosis of spine M99.89 ; Bilateral acute serous otitis media, recurrence not specified H65.03 ; Mixed hyperlipidemia E78.2 ; Essential hypertension I10 ; Immunization counseling Z71.89 and Encounter for immunization Z23 [address] [address] Apr, Neck pain M54.[address] [address] Mar, Neuroforaminal stenosis of s pine M99.89 [place] [address] [address] Mar, Pharyngitis due to other org anism J02.[address] [address] Feb, Neuroforaminal stenosis of s pine M99.89 [facility] [address] [id number] [address] [place] [address] Feb, UTI (urinary tract infection ) N39.0 [facility] [address] [id number] [address] [place] [address] Feb, Recent urinary tract infecti on Z87.440 ; Neuroforaminal stenosis of spine M99.89 ; Neck pain M54.2 ; Chronic pain due to trauma G89.21 and Recurrent UTI N39.0 [facility] [address] [id number] [address] [place] [address] Feb, [facility] [address] [id number] [address] [place] [address] Jan, Neuroforaminal stenosis of s pine M99.89 [facility] [address] [id number] [address] [place] [address] Dec, Neuroforaminal stenosis of s pine M99.89 [facility] [address] [id number] [address] [place] [address] Dec, Acute seasonal allergic rhin itis due to pollen J30.1 [facility] [address] [id number] [address] [place] [id number] Dec, [facility] [address] [id number] [address] [place] [address] Dec, Acute seasonal allergic rhin itis, unspecified trigger J30.2 ; Allergic conjunctivitis of both eyes H10.13 and Dysfunction of both eustachian tubes H69.83 [facility] [address] [id number] [address] [place] [id number] Dec, [facility] [address] [id number] [address] [place] [address] Dec, Nevus D22.9 [facility] [address] [id number] [address] [place] [address] Nov, Chronic pain due to trauma G 89.21 and Neuroforaminal stenosis of spine M99.89 [facility] [address] [id number] [address] [place] [address] Nov, Neuroforaminal stenosis of s pine M99.89 ; Essential hypertension I10 ; Mixed hyperlipidemia E78.2 ; Hypokalemia E87.6 ; Neck pain M54.2 and Nevus D22.9 [facility] [address] [id number] [address] [place] [address] Oct, Neuroforaminal stenosis of s pine M99.89 [facility] [address] [id number] [address] [place] [address] Sep, Neuroforaminal stenosis of s pine M99.89 [facility] [address] [id number] [address] [place] [address] Sep, [facility] [address] [id number] [address] [place] [address] August, [facility] [address] [id number] [address] [place] [address] August, Neck pain M54.2 and Neurofor aminal stenosis of spine M99.89 [facility] [address] [id number] [address] [place] [id number] August, Routine gynecological examin ation Z01.419 and Screening breast examination Z12.39 [facility] [address] [id number] [address] [place] [id number] Jul, [facility] [address] [id number] [address] [place] [phone] Jul, [facility] [address] [id number] [address] [place] [address] Jul, Neuroforaminal stenosis of s pine M99.89 [facility] [address] [id number] [address] [place] [id number] Jul, [facility] [address] [facility] [id number] [address] [place] [address] Jul, Neuroforaminal stenosis of l umbar 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 [facility] [address] [facility] [id number] [address] [place] [id number] Jul, [facility] [address] [place] [id number] [address] [place] [address] Jul, [facility] [address] [facility] [id number] [address] [place] [address] Jun, Neuroforaminal stenosis of s jose M99.89 [place] [address] [place] [id number] [address] [place] [address] Jun, Uterine leiomyoma, unspecifi ed location D25.9 and Allergic reaction caused by a drug, initial encounter T78.40XA [place] [address] [place] [address] Jun, [place] [address] [facility] [id number] [address] [place] [address] May, UTI symptoms R39.9 and Pain of right sacroiliac joint M53.3 [place] [address] [place] [id number] [address] [place] [address] May, Neuroforaminal stenosis of s jose M99.89 [place] [address] [place] [address] May, [place] [address] [place] [id number] [address] [place] [address] May, Acute mucoid otitis media of left ear H65.112 and Acute non- recurrent maxillary sinusitis J01.00 [place] [address] [place] [id number] [address] [place] [address] May, Acute bacterial conjunctivit is of both eyes H10.33 ; Left arm pain M79.602 and Hypokalemia E87.6 [place] [address] [place] [id number] [address] [place] [address] Apr, [place] [address] [facility] [id number] [address] [place] [address] Apr, Neuroforaminal stenosis of s pine M99.89 ; Neck pain M54.2 ; Chronic pain due to trauma G89.21 ; Mixed hyperlipidemia E78.2 ; Essential hypertension I10 and Hypokalemia E87.6 [place] [address] [id number] [address] [place] [address] Mar, Oral candidiasis B37.0 ; Nathaniel roforaminal stenosis of spine M99.89 ; Neck pain M54.2 and Chronic pain due to trauma G89.21 [place] [address] [place] [id number] [address] [place] [address] Feb, [place] [address] [place] [id number] [address] [place] [id number] Feb, [place] [address] [place] [id number] [address] [place] [address] Feb, UTI (urinary tract infection ) N39.0 [place] [address] [place] [id number] [address] [place] [address] Feb, Dysuria R30.0 [place] [address] [place] [id number] [address] [place] [address] Feb, Dysuria R30.0 [place] [address] [place] [id number] [address] [place] [address] 02 Feb, 2016 Neuroforaminal stenosis of s pine M99.89 ; Neck pain M54.2 ; Essential hypertension I10 ; Chronic pain due to trauma G89.21 ; Dysuria R30.0 ; Abnormal MRI, shoulder R93.8 and Acute cystitis without hematuria N30.00 [place] [address] [place] [id number] [address] [place] [address] Jan, [place] [address] [place] [id number] [address] [place] [address] Jan, [facility] [address] [id number] [address] [place] [phone] Jan, [facility] [address] [id number] [address] [place] [address] Jan, Abnormal MRI R93.8 [facility] [address] [id number] [address] [place] [id number] 29 Dec, 2015 [facility] [address] [id number] [address] [place] [id number] 15 Dec, 2015 Acute pain of left shoulder M25.512 [facility] [address] [id number] [address] [place] [phone] 09 Dec, 2015 [facility] [address] [id number] [address] [place] [id number] 08 Dec, 2015 [facility] [address] [id number] [address] [place] [id number] 07 Dec, 2015 Acute pain of left shoulder M25.512 [facility] [address] [id number] [address] [place] [id number] Nov, [facility] [address] [id number] [address] [place] [id number] 16 Nov, 2015 Neuroforaminal stenosis of s pine M99.89 ; Neck pain M54.2 ; Abnormal mammogram R92.8 ; Essential hypertension I10 and Chronic pain due to trauma G89.21 [facility] [address] [id number] [address] [place] [id number] Nov, [facility] [address] [id number] [address] [place] [id number] Oct, Acute stress disorder F43.0 [facility] [address] [id number] [address] [place] [id number] Oct, [facility] [address] [id number] [address] [place] [id number] 14 Oct, 2015 [facility] [address] [id number] [address] [place] [id number] Oct, [facility] [address] [id number] [address] [place] [phone] Sep, [facility] [address] [id number] [address] [place] [id number] August, [facility] [address] [id number] [address] [place] [id number] Jul, Neuroforaminal stenosis of s pine M99.89 ; Neck pain M54.2 ; Abnormal mammogram R92.8 and Essential hypertension I10 [facility] [address] [id number] [address] [place] [id number] Jul, [facility] [address] [id number] [address] [place] [id number] Jul, [facility] [address] [id number] [address] [place] [phone] Jul, Abnormal mammogram R92.8 [facility] [address] [id number] [address] [place] [id number] Jul, [facility] [address] [id number] [address] [place] [id number] Jul, UTI (urinary tract infection ) N39.0 [facility] [address] [id number] [address] [place] [id number] Jul, Dysuria R30.0 [facility] [address] [id number] [address] [place] [id number] Jun, [facility] [address] [id number] [address] [place] [id number] Jun, [facility] [address] [id number] [address] [place] [phone] Jun, Hypokalemia E87.6 and Hematu martina R31.9 [facility] [address] [id number] Jun, Hypokalemia E87.6 [place] [address] [id number] Jun, [place] [address] [phone] Jun, Hypokalemia E87.6 [place] [address] [address] Jun, Hypokalemia E87.6 [place] [address] [address] Jun, Neuroforaminal stenosis of s pine M99.89 ; Hypokalemia E87.6 ; Neck pain M54.2 ; Essential hypertension I10 ; Mixed hyperlipidemia E78.2 and Screening breast examination Z12.39 [place] [address] [address] Jun, Dysuria R30.0 ; UTI (urinary tract infection) N39.0 and Hematuria R31.9 [place] [address] [address] May, [place] [address] [address] May, High risk sexual behavior Z7 2.51 ; Hypokalemia E87.6 ; Neuroforaminal stenosis of spine M99.89 ; Neck pain M54.2 ; Essential hypertension I10 ; Mixed hyperlipidemia E78.2 ; STD exposure Z20.2 and Concern about STD in female without diagnosis Z71.[address] [address] 16 May, 2015 Neuroforaminal stenosis of s pine M99.89 ; Neck pain M54.2 ; Hypokalemia E87.6 ; Essential hypertension I10 and Mixed hyperlipidemia E78.2 [place] [address] [address] 11 May, 2015 [facility] [address] [place] [id number] [address] [place] [address] 08 May, 2015 High risk sexual behavior Z7 2.51 ; STD exposure Z20.2 and Concern about STD in female without diagnosis Z71.1 [facility] [address] [place] [id number] [address] [place] [address] May, [place] [address] [address] Apr, Neuroforaminal stenosis of s pine M99.89 ; Mixed hyperlipidemia E78.2 ; Essential hypertension I10 and Hypokalemia E87.6 [place] [address] [address] Mar, [place] [address] [address] Mar, Hypokalemia E87.6 [place] [address] [address] Mar, Neuroforaminal stenosis of s pine M99.89 ; Mixed hyperlipidemia E78.2 ; Neck pain M54.2 ; Essential hypertension I10 ; Abnormal fasting glucose R73.09 ; Hypokalemia E87.6 and Constipation K59.00 [place] [address] [place] [id number] [address] [place] [address] Feb, Neuroforaminal stenosis of s pine M99.89 ; Mixed hyperlipidemia E78.2 ; Neck pain M54.2 ; Essential hypertension I10 ; Abnormal fasting glucose R73.09 ; Hypokalemia E87.6 and Constipation K59.00 [place] [address] [address] Feb, Elevated fasting blood sugar R73.01 [place] [address] [address] Feb, Elevated fasting blood sugar R73.01 [place] [address] [id number] [address] [place] [address] Feb, Hair loss L65.9 [place] [address] [facility] [id number] [address] [place] [address] Feb, Sinusitis J32.9 ; Essential hypertension I10 and Hair loss L65.9 [place] [address] [facility] [id number] [address] [place] [address] Jan, [place] [address] [facility] [id number] [address] [place] [address] Jan, Essential hypertension I10 ; Neuroforaminal stenosis of spine M99.89 ; Neck pain M54.2 ; Mixed hyperlipidemia E78.2 and Anxiety F41.9 [place] [address] [facility] [id number] [address] [place] [address] Jan, [place] [address] [place] [id number] [place] [address] Jan, Mixed hyperlipidemia E78.2 ; Essential (primary) hypertension I10 ; Strain of muscle, fascia and tendon at neck level, subsequent encounter S16.1XXD and Tension-type headache, unspecified, not intractable G44.209 [place] [address] [id number] [address] [place] [address] Dec, Lumbar back pain 724.2 and N euroforaminal stenosis of spine 724.00 [place] [address] [id number] [address] [place] [address] Nov, [place] [address] [id number] [address] [place] [address] Nov, Lumbar back pain 724.2 and N euroforaminal stenosis of spine 724.00 [place] [address] [facility] [id number] [address] [place] [address] Nov, Edema 782.3 ; Lumbar back pa in 724.2 ; Essential hypertension, benign 401.1 ; Hyperlipemia 272.4 ; Neuroforaminal stenosis of spine 724.00 and Post-concussion headache 339.20 [facility] [address] [id number] [address] [place] [address] Nov, [facility] [address] [id number] [address] [place] [address] Nov, [facility] [address] [id number] [address] [place] [address] Oct, Essential hypertension, sheridan gn 401.1 [facility] [address] [id number] [address] [place] [address] Oct, Edema 782.3 ; Lumbar back pa in 724.2 ; Essential hypertension, benign 401.1 ; Hyperlipemia 272.4 ; Neuroforaminal stenosis of spine 724.00 and Post-concussion headache 339.20 [facility] [address] [id number] [address] [place] [address] Oct, [facility] [address] [id number] [address] [place] [address] Oct, Edema 782.3 [facility] [address] [id number] [address] [place] [address] Oct, Lumbar back pain 724.2 [place] [address] [id number] [address] [place] [address] Oct, Cervicalgia 723.1 ; Lumbar b ack pain 724.2 and High risk medication use V58.69 [facility] [address] [id number] [address] [place] [address] Sep, [facility] [address] [id number] [address] [place] [address] Sep, Lumbar strain 847.2 [facility] [address] [id number] [address] [place] [address] August, Edema 782.3 and Eustachian t ube dysfunction 381.81 [place] [id number] [id number] [address] [place] [address] August, [facility] [place] [address] [id number] [address] [place] [address] August, Eustachian tube dysfunction 381.81 [facility] [place] [address] [id number] [address] [place] [address] Jul, Otalgia 388.70 and Otitis me jonathon 382.9 [facility] [address] [id number] [address] [place] [address] Jul, [facility] [address] [id number] [address] [place] [address] Jul, [facility] [address] [id number] [address] [place] [address] Jul, [facility] [place] [address] [id number] [address] [place] [address] Jul, [facility] [address] [id number] [address] [place] [address] Jul, [facility] [address] [id number] [address] [place] [address] Jun, [facility] [address] [id number] [address] [place] [address] Jun, [facility] [address] [id number] [address] [place] [address] Jun, [facility] [address] [id number] [address] [place] [address] May, [facility] [address] [id number] [address] [place] [address] May, [facility] [address] [id number] [address] [place] [address] May, [facility] [address] [id number] [address] [place] [address] May, [facility] [address] [id number] [address] [place] [address], [place] [address] 17 May, 2014 [facility] [address] [id number] [address] [place] [address], [place] [address] May, 2014 [facility] [address] [id number] [address] [place] [address], [place] [address] May, 2014 [facility] [address] [id number] [address] [place] [address], [place] [address] May, 2014 [facility] [address] [id number] [address] [place] [address], [place] [address] May, 2014 [facility] [address] [id number] [address] [place] [address], [place] [address] May, [facility] [address] [id number] [address] [place] [address], [place] [address] Apr, [facility] [address] [id number] [address] [place] [address], [place] [address] Apr, [facility] [address] [id number] [address] [place] [address], [place] [address] Apr, [facility] [address] [id number] [address] [place] [address], [place] [address] Apr, [facility] [address] [id number] [address] [place] [address], [place] [address] Apr, [facility] [address] [id number] [address] [place] [address], [place] [address] Apr, [facility] [address] [id number] [address] [place] [address], [place] [address] Apr, [facility] [address] [id number] [address] [place] [address], [place] [address] Apr, [facility] [address] [id number] [address] [place] [address], [place] [address] Apr, [facility] [address] [id number] [address] [place] [address], [place] [address] Apr, [facility] [address] [id number] [address] [place] [address], [place] [address] Apr, [facility] [address] [id number] [address] [place] [address], [place] [address] Apr, [facility] [address] [id number] [address] [place] [address], [place] [address] Apr, [facility] [address] [id number] [address] [place] [address], [place] [address] Apr, [facility] [address] [id number] [address] [place] [address], [place] [address] Apr, [facility] [address] [id number] [address] [place] [address], [place] [address] Mar, [facility] [address] [id number] [address] [place] [address], [place] [address] Mar, [facility] [address] [id number] [address] [place] [address], [place] [address] Mar, [facility] [address] [id number] [address] [place] [address], [place] [address] Mar, [facility] [address] [id number] [address] [place] [address], [place] [address] Feb, [facility] [address] [id number] [address] [place] [address] Feb, [facility] [address] [id number] [address] [place] [address] Feb, [facility] [address] [id number] [address] [place] [address], [place] [address] Feb, [facility] [address] [id number] [address] [place] [address], [place] [address] Jan, [facility] [address] [id number] [address] [place] [address] Jan, [facility] [address] [id number] [address] [place] [address], [place] [address] Jan, [facility] [address] [id number] [address] [place] [address], [place] [address] Jan, [facility] [address] [id number] [address] [place] [address], [place] [address] Jan, [facility] [address] [id number] [address] [place] [address], [place] [address] Jan, [facility] [address] [id number] [address] [place] [address], [place] [address] Jan, [facility] [address] [id number] [address] [place] [address], [place] [address] Jan, [facility] [address] [id number] [address] [place] [address], [place] [address] Dec, [facility] [address] [id number] [address] [place] [address], [place] [address] Dec, [facility] [address] [id number] [address] [place] [address], [place] [address] Dec, [facility] [address] [id number] [address] [place] [address], [place] [address] Dec, [facility] [address] [id number] [address] [place] [address], [place] [address] Oct, [facility] [address] [id number] [address] [place] [address], [place] [address] Oct, [facility] [address] [id number] [address] [place] [address], [place] [address] Oct, [facility] [address] [id number] [address] [place] [address], [place] [address] Oct, [facility] [address] [id number] [address] [place] [address], [place] [address] Oct, [facility] [address] [id number] [address] [place] [address], [place] [address] Oct, [facility] [address] [id number] [address] [place] [address], [place] [address] Oct, [facility] [address] [id number] [address] [place] [address], [place] [address] Oct, [facility] [address] [id number] [address] [place] [address], [place] [address] Sep, [facility] [address] [id number] [address] [place] [address], [place] [address] Sep, [facility] [address] [id number] [address] [place] [address], [place] [address] Sep, [facility] [address] [id number] [address] [place] [address], [place] [address] Sep, [facility] [address] [id number] [address] [place] [address], [place] [address] Sep, [facility] [address] [id number] [address] [place] [address], [place] [address] Sep, [facility] [address] [id number] [address] [place] [address], [place] [address] Sep, [facility] [address] [id number] [address] [place] [address], [place] [address] Sep, [facility] [address] [id number] [address] [place] [address], [place] [address] Sep, [facility] [address] [id number] [address] [place] [address], [place] [address] Sep, [facility] [address] [id number] [address] [place] [address], [place] [address] August, [facility] [address] [id number] [address] [place] [address], [place] [address] August, [facility] [address] [id number] [address] [place] [address], [place] [address] August, [facility] [address] [id number] [address] [place] [address], [place] [address] August, [facility] [address] [id number] [address] [place] [address], [place] [address] August, [facility] [address] [id number] [address] [place] [address], [place] [address] August, [facility] [address] [id number] [address] [place] [address], [place] [address] August, [facility] [address] [id number] [address] [place] [address], [place] [address] August, [facility] [address] [id number] [address] [place] [address], [place] [address] August, [facility] [address] [id number] [address] [place] [address], [place] [address] August, [facility] [address] [id number] [address] [place] [address], [place] [address] August, [facility] [address] [id number] [address] [place] [address], [place] [address] August, [facility] [address] [id number] [address] [place] [address], [place] [address] Jul, [facility] [address] [id number] [address] [place] [address], [place] [address] Jul, [facility] [address] [id number] [address] [place] [address], [place] [address] Jul, [facility] [address] [id number] [address] [place] [address], [place] [address] Jul, [facility] [address] [id number] [address] [place] [address], [place] [address] Jul, [facility] [address] [id number] [address] [place] [address], [place] [address] Jul, [facility] [address] [id number] [address] [place] [address], [place] [address] Jun, [facility] [address] [id number] [address] [place] [address], [place] [address] Jun, [facility] [address] [id number] [address] [place] [address], [place] [address] May, [facility] [address] [id number] [address] [place] [address], [place] [address] May, [facility] [address] [id number] [address] [place] [address], [place] [address] Apr, [facility] [address] [id number] [address] [place] [address], [place] [address] Apr, [facility] [address] [id number] [address] [place] [address], [place] [address] Apr, [facility] [address] [id number] [address] [place] [address], [place] [address] Apr, [facility] [address] [id number] [address] [place] [address], [place] [address] Apr, [facility] [address] [id number] [address] [place] [address], [place] [address] Apr, [facility] [address] [id number] [address] [place] [address], [place] [address] Apr, [facility] [address] [id number] [address] [place] [address], [place] [address] Apr, [facility] [address] [id number] [address] [place] [address], [place] [address] Apr, [facility] [address] [id number] [address] [place] [address], [place] [address] Apr, [facility] [address] [id number] [address] [place] [address], [place] [address] Apr, [facility] [address] [id number] [address] [place] [address], [place] [address] Apr, [facility] [address] [id number] [address] [place] [address], [place] [address] Apr, [facility] [address] [id number] [address] [place] [address], [place] [address] Mar, [facility] [address] [id number] [address] [place] [address], [place] [address] Mar, [facility] [address] [id number] [address] [place] [address], [place] [address] Mar, [facility] [address] [id number] [address] [place] [address], [place] [address] Mar, [facility] [address] [id number] [address] [place] [address], [place] [address] Feb, [facility] [address] [id number] [address] [place] [address], [place] [address] Feb, [facility] [address] [id number] [address] [place] [address], [place] [address] Feb, [facility] [address] [id number] [address] [place] [address] Feb, [facility] [address] [id number] [address] [place] [address], [place] [address] 14 Jan, 2013 [facility] [address] [id number] [address] [place] [address] 14 Jan, 2013 [facility] [address] [id number] [address] [place] [address] Jan, [facility] [address] [id number] [address] [place] [id number] 11 Jan, 2013 [facility] [address] [id number] [address] [place] [address], [place] [address] 10 Jan, 2013 [facility] [address] [id number] [address] [place] [id number] 10 Jan, 2013 [facility] [address] [id number] [address] [place] [id number] 09 Jan, 2013 [facility] [address] [id number] [address] [place] [address], [place] [address] Jan, [facility] [address] [id number] [address] [place] [address], [place] [address] Jan, [facility] [address] [id number] [address] [place] [address], [place] [address] 26 Dec, 2012 [facility] [address] [id number] [address] [place] [address], [place] [address] 16 Dec, 2012 [facility] [address] [id number] [address] [place] [address], [place] [address] 16 Dec, 2012 [facility] [address] [id number] [address] [place] [address], [place] [address] Dec, [facility] [address] [id number] [address] [place] [address], [place] [address] Nov, [facility] [address] [id number] [address] [place] [address], [place] [address] Nov, [facility] [address] [id number] [address] [place] [address], [place] [address] Nov, [facility] [address] [id number] [address] [place] [address], [place] [address] Nov, [facility] [address] [id number] [address] [place] [address], [place] [address] Oct, [facility] [address] [id number] [address] [place] [address], [place] [address] Sep, [facility] [address] [id number] [address] [place] [address], [place] [address] August, [facility] [address] [id number] [address] [place] [address], [place] [address] August, [facility] [address] [id number] [address] [place] [address], [place] [address] August, [facility] [address] [id number] [address] [place] [address], [place] [address] August, [facility] [place] [address] [id number] [address] [place] [address], [place] [address] August, [facility] [place] [address] [id number] [address] [place] [address], [place] [address] August, [facility] [place] [address] [id number] [address] [place] [address], [place] [address] August, [facility] [address] [id number] [address] [place] [address], [place] [address] August, [facility] [address] [id number] [address] [place] [address], [place] [address] August, [facility] [address] [id number] [address] [place] [address], [place] [address] August, [facility] [address] [id number] [address] [place] [address], [place] [address] August, [facility] [address] [id number] [address] [place] [address], [place] [address] August, [facility] [address] [id number] [address] [place] [address], [place] [address] Jul, [facility] [address] [id number] [address] [place] [address], [place] [address] Jul, [facility] [address] [id number] [address] [place] [address], [place] [address] Jul, [facility] [address] [id number] [address] [place] [address], [place] [address] Jul, [facility] [address] [id number] [address] [place] [address], [place] [address] Jul, [facility] [address] [id number] [address] [place] [address], [place] [address] Jul, [facility] [address] [id number] [address] [place] [address], [place] [address] 04 Jul, 2012 [facility] [address] [id number] [address] [place] [phone] Jul, [facility] [address] [id number] [address] [place] [address], [place] [address] Jul, [facility] [address] [id number] [address] [place] [address], [place] [address] Jul, [facility] [address] [address] [id number] [address] [place] [address], [place] [address] Jul, [facility] [address] [id number] [address] [place] [address], [place] [address] Jun, [facility] [address] [id number] [address] [place] [address], [place] [address] Jun, [facility] [address] [id number] [address] [place] [address], [place] [address] Jun, [facility] [address] [id number] [address] [place] [address], [place] [address] Jun, [facility] [address] [id number] [address] [place] [address], [place] [address] May, [facility] [address] [id number] [address] [place] [address], [place] [address] May, [facility] [address] [id number] [address] [place] [address], [place] [address] May, [facility] [address] [id number] [address] [place] [address], [place] [address] May, [facility] [address] [id number] [address] [place] [address] May, [facility] [address] [id number] [address] [place] [address], [place] [address] May, [facility] [address] [id number] [address] [place] [address] Apr, [facility] [address] [id number] [address] [address] Apr, [facility] [address] [id number] [address] [place] [address], [place] [address] 30 Apr, 2012 [facility] [address] [id number] [address] [place] [address], [place] [address] Apr, [facility] [address] [id number] [address] [place] [address], [place] [address] 15 Mar, 2012 [facility] [address] [id number] [address] [place] [address], [place] [address] 14 Mar, 2012 [facility] [address] [id number] [address] [place] [address], [place] [address] 14 Mar, 2012 [facility] [address] [id number] [address] [place] [address], [place] [address] Mar, [facility] [address] [id number] [address] [place] [address], [place] [address] Mar, [facility] [address] [id number] [address] [place] [address], [place] [address] Mar, [facility] [address] [id number] [address] [place] [address], [place] [address] Mar, [facility] [address] [id number] [address] [place] [address], [place] [address] Feb, [facility] [address] [id number] [address] [place] [address], [place] [address] Feb, [facility] [address] [id number] [address] [place] [address], [place] [address] Feb, [facility] [address] [id number] [address] [place] [address], [place] [address] Feb, [facility] [address] [id number] [address] [place] [address], [place] [address] Jan, [facility] [address] [id number] [address] [place] [address], [place] [address] Jan, [facility] [address] [id number] [address] [place] [address], [place] [address] Jan, [facility] [address] [id number] [address] [place] [address], [place] [address] Jan, [facility] [address] [id number] [address] [place] [address], [place] [address] Jan, [facility] [address] [id number] [address] [place] [address], [place] [address] Jan, [facility] [address] [id number] [address] [place] [address], [place] [address] Dec, [facility] [address] [id number] [address] [place] [address], [place] [address] Dec, [facility] [address] [id number] [address] [place] [address], [place] [address] Nov, [facility] [address] [id number] [address] [place] [address], [place] [address] Sep, [facility] [address] [id number] [address] [place] [address], [place] [address] August, [facility] [address] [id number] [address] [place] [address], [place] [address] August, [facility] [address] [id number] [address] [place] [address], [place] [address] August, [facility] [address] [id number] [address] [place] [address], [place] [address] August, [facility] [address] [id number] [address] [place] [address], [place] [address] August, [facility] [address] [id number] [address] [place] [address], [place] [address] Jun, [facility] [address] [id number] [address] [place] [address], [place] [address] Jun, [facility] [address] [id number] [address] [place] [address], [place] [address] Apr, [facility] [address] [id number] [address] [place] [address], [place] [address] 20 Apr, 2011 [facility] [address] [id number] [address] [place] [address], [place] [address] 23 Mar, 2011 [facility] [address] [id number] [address] [place] [address], [place] [address] Feb, [facility] [address] [id number] [address] [place] [address], [place] [address] 14 Feb, 2011 [facility] [address] [id number] [address] [place] [address], [place] [address] 14 Feb, 2011 [facility] [address] [id number] [address] [place] [address], [place] [address] 17 Jan, 2011 [facility] [address] [id number] [address] [place] [address], [place] [address] 15 Jan, 2011 [facility] [address] [id number] [address] [place] [address], [place] [address] 15 Jan, 2011 [facility] [address] [id number] [address] [place] [address], [place] [address] 14 Jan, 2011 [facility] [address] [id number] [address] [place] [address], [place] [address] 15 May, 2010 [facility] [address] [id number] [address] [place] [address], [place] [address] 04 Mar, 2010 [facility] [address] [id number] [address] [place] [address], [place] [address] Oct, [facility] [address] [id number] [address] [place] [address], [place] [address] Sep, [facility] [address] [id number] [address] [place] [address], [place] [address] Mar, [facility] [address] [id number] [address] [place] [address], [place] [address] Jan, [facility] [address] [id number] [address] [place] [address], [place] [address] Jan, [facility] [address] [facility] [id number] [address] [place] [address] May, IMMUNIZATIONS No Known Immunizations SOCIAL HISTORY Never Assessed REASON FOR VISIT PLAN OF CARE VITAL SIGNS Blood pressure systolic 142 mmHg 2014-01-10 Blood pressure diastolic 84 mmHg 2014-01-10 MEDICATIONS Unknown Medications RESULTS No Results PROCEDURES Procedure Date Ordered Result Body Site BLOOD PRESSURE, MEASURED Jan 10, 2014 INSTRUCTIONS MEDICATIONS ADMINISTERED No Known Medications MEDICAL [...]
--- OUTSIDE RECORDS SUMMARY | 2019-11-23 05:54 | XMS REPORT ---
Author Author Liana Coe Doctor Organization [facility] Address Unknown Phone Unavailable Care Team Providers Care Hospital Security Officer Name Role Phone Migration, Doctor Unavailable Unavailable PROBLEMS Type Condition ICD9-CM Code PLF37-TK Code Onset Dates Condition S tatus SNOMED Code Problem Hematuria, unspecified type R31.9 Ac tive 67736883 Problem Abnormal renal ultrasound R93.429 Acti ve [id number] Problem Anxiety F41.9 Active 68419908 Problem Hypokalemia E87.6 Active 05112230 Problem Abnormal glucose R73.09 Active 102 210292 Problem Chronic pain due to trauma G89.21 Act juanis [id number] Problem Neuroforaminal stenosis of spine M99.89 Active 087606148126 Problem Neck pain M54.2 Active 65163405 Problem Essential hypertension I10 Active 03210425 Problem Mixed hyperlipidemia E78.2 Active 41062858 ALLERGIES No Information ENCOUNTERS Encounter Location Date Diagnosis [facility] [address] [facility] [id number] [address] [place] [address] Dec, Neuroforaminal stenosis of s pine M99.89 [facility] [address] [facility] [id number] [address] [place] [address] Nov, [facility] [address] [facility] [id number] [address] [place] [address] Nov, Neuroforaminal stenosis of s pine M99.89 [facility] [address] [facility] [id number] [address] [place] [address] Nov, Acute non-recurrent maxillar y sinusitis J01.00 [facility] [address] [facility] [id number] [address] [place] [address] Oct, Hypokalemia E87.6 [facility] [address] [facility] [id number] [address] [place] [address] Oct, Wasp sting, undetermined int ent, initial encounter T63.464A and Cellulitis of left lower extremity L03.116 [place] [address] [id number] [address] [place] [address] Oct, Neuroforaminal stenosis of s pine M99.89 [place] [address] [id number] [address] [place] [address] Sep, [place] [address] [id number] [address] [place] [address] Sep, [place] [address] [id number] [address] [place] [address] 18 Sep, 2018 Routine screening for STI (s exually transmitted infection) Z11.3 [place] [address] [id number] [address] [place] [address] 14 Sep, 2018 Routine screening for STI (s exually transmitted infection) Z11.3 ; Well woman exam with routine gynecological exam Z01.419 and Breast cancer screening Z12.39 [place] [address] [id number] [address] [place] [address] Sep, Neuroforaminal stenosis of s pine M99.89 [place] [address] [id number] [address] [place] [address] August, Neuroforaminal stenosis of s pine M99.89 [place] [address] [id number] [address] [place] [address] August, Neuroforaminal stenosis of s pine M99.89 ; Chronic pain due to trauma G89.21 and Mixed hyperlipidemia E78.2 [place] [address] [id number] [address] [place] [address] 16 Jul, 2018 Viral upper respiratory illn ess J06.9 and Acute non-recurrent frontal sinusitis J01.10 [place] [address] [id number] [address] [place] [address] 15 Jul, 2018 Congestion of nasal sinus R0 9.81 [place] [address] [facility] [id number] [address] [place] [address] Jul, Neuroforaminal stenosis of s pine M99.89 and Essential hypertension I10 [facility] [address] [facility] [id number] [address] [place] [address] May, Neuroforaminal stenosis of s pine M99.89 [facility] [address] [id number] [address] [place] [address] May, [facility] [address] [facility] [id number] [address] [place] [address] May, Congestion of nasal sinus R0 9.81 [place] [address] [facility] [id number] [address] [place] [address] May, [place] [address] [facility] [id number] [address] [place] [address] Apr, Neuroforaminal stenosis of s pine M99.89 [place] [address] [facility] [id number] [address] [place] [address] Apr, Neuroforaminal stenosis of s pine M99.89 and Chronic pain due to trauma G89.21 [place] [address] [facility] [id number] [address] [place] [address] Mar, UTI (urinary tract infection ) N39.0 [place] [address] [facility] [id number] [address] [place] [address] Mar, Vertigo R42 [place] [address] [facility] [id number] [address] [place] [address] Mar, Neuroforaminal stenosis of s pine M99.89 [facility] [address] [facility] [id number] [address] [place] [address] Feb, Extensor tendon disruption M 67.89 [facility] [address] [facility] [id number] [address] [place] [address] Feb, Neuroforaminal stenosis of s pine M99.89 and High risk medication use Z79.899 [place] [address] [place] [id number] [address] [place] [address] Jan, Hypokalemia E87.6 [place] [address] [address] Jan, Flank pain R10.9 and Acute r ight-sided low back pain without sciatica M54.5 [place] [address] [address] Jan, Hypokalemia E87.6 [place] [address] [place] [id number] [place] [phone] Jan, [place] [address] [address] Jan, URI, acute J06.9 [place] [address] [address] Jan, Neuroforaminal stenosis of s pine M99.89 [place] [address] [address] 13 Dec, 2017 Lateral epicondylitis, right elbow M77.11 [place] [address] [address] 11 Dec, 2017 Allergic rhinitis due to monica rosalina, unspecified seasonality J30.1 and Allergic conjunctivitis of both eyes H10.13 [place] [address] [address] 10 Dec, 2017 Neuroforaminal stenosis of s pine M99.89 [place] [address] [address] 06 Dec, 2017 Mixed hyperlipidemia E78.2 [place] [address] [place] [id number] [place] [address] 05 Dec, 2017 Abnormal glucose R73.09 ; Ab normal renal ultrasound R93.429 ; Dysuria R30.0 ; Cystitis without hematuria N30.90 ; Hypokalemia E87.6 ; Mixed hyperlipidemia E78.2 and Hematuria, unspecified type R31.9 [place] [address] [facility] [id number] [address] [place] [address] Nov, Hypokalemia E87.6 ; Mixed hy perlipidemia E78.2 and Hematuria, unspecified type R31.9 [place] [address] [place] [id number] [address] [place] [address] Nov, [place] [address] [facility] [id number] [address] [place] [address] Nov, Hypokalemia E87.6 [place] [address] [place] [id number] [place] [address] Nov, [place] [address] [place] [id number] [place] [address] Nov, Abnormal renal ultrasound R9 3.429 [place] [address] [place] [id number] [address] [place] [address] Nov, Abnormal renal ultrasound R9 3.429 [place] [address] [address] Nov, Hematuria, unspecified type R31.9 and Neuroforaminal stenosis of spine M99.89 [place] [address] [place] [id number] [address] [place] [address] Nov, Dysuria R30.0 [place] [address] [place] [id number] [address] [place] [address] Oct, Lateral epicondylitis, right elbow M77.11 [place] [address] [place] [id number] [address] [place] [address] Oct, Neuroforaminal stenosis of s pine M99.89 ; Visit for TB skin test Z11.1 and Essential hypertension I10 [place] [address] [place] [id number] [address] [place] [address] Oct, [place] [address] [id number] [address] [place] [address] 12 Oct, 2017 Neuroforaminal stenosis of s pine M99.89 [place] [address] [id number] [address] [place] [address] 10 Oct, 2017 Visit for TB skin test Z11.1 [place] [address] [id number] [address] [place] [address] 05 Oct, 2017 Cystitis without hematuria N 30.90 [place] [address] [id number] [address] [place] [address] 28 Sep, 2017 Screening breast examination Z12.39 [place] [address] [id number] [address] [place] [address] 26 Sep, 2017 Dysuria R30.0 and Cystitis w ithout hematuria N30.90 [place] [address] [id number] [address] [place] [address] 14 Sep, 2017 Essential hypertension I10 a nd Neuroforaminal stenosis of spine M99.89 [place] [address] [id number] [address] [place] [address] 04 Sep, 2017 Abnormal glucose R73.09 [place] [address] [facility] [id number] [address] [place] [address] August, Lateral epicondylitis, right elbow M77.11 [place] [address] [facility] [id number] [address] [place] [address] August, Screen for STD (sexually tra nsmitted disease) Z11.3 [place] [address] [id number] [address] [place] [address] August, Neuroforaminal stenosis of s pine M99.89 ; Mixed hyperlipidemia E78.2 ; Elevated fasting glucose R73.01 ; Screening mammogram, encounter for Z12.31 and Encounter for well woman exam without gynecological exam Z00.00 [place] [address] [id number] [address] [place] [address] August, Neuroforaminal stenosis of s jose M99.89 [facility] [address] [id number] [address] [place] [address] August, Essential hypertension I10 ; Hypokalemia E87.6 and Mixed hyperlipidemia E78.2 [facility] [address] [id number] [address] [place] [address] Jul, [facility] [address] [id number] [address] [place] [address] Jul, Neuroforaminal stenosis of s jose M99.89 [facility] [address] [id number] [address] [place] [address] Jul, Lateral epicondylitis, right elbow M77.11 [facility] [address] [id number] [address] [place] [address] Jul, [facility] [address] [id number] [address] [place] [address] Jun, High ankle sprain of right l ower extremity, initial encounter S93.431A [facility] [address] [id number] [address] [place] [address] Jun, Essential hypertension I10 [facility] [address] [id number] [address] [place] [address] Jun, [facility] [address] [id number] [address] [place] [address] Jun, [facility] [address] [id number] [address] [place] [address] Jun, Neuroforaminal stenosis of s jose M99.89 [facility] [address] [id number] [address] [place] [address] Jun, Pain of right upper extremit y M79.601 and Essential hypertension I10 [facility] [address] [id number] [address] [place] [address] Jun, [facility] [id number] [place] [address] Jun, Dysuria R30.0 ; Acute cystit is with hematuria N30.01 and Screen for STD (sexually transmitted disease) Z11.3 [place] [address] [place] [address] May, Chronic pain due to trauma G 89.21 [place] [address] [address] May, Essential hypertension I10 [address] [address] May, Neuroforaminal stenosis of s jose M99.[address] [address] Apr, Allergic reaction, initial e ncounter T78.40XA [address] [address] Apr, Low back pain, unspecified b ack pain laterality, unspecified chronicity, with sciatica presence unspecified M54.5 ; Acute cystitis with hematuria N30.01 ; Neuroforaminal stenosis of spine M99.89 ; Bilateral acute serous otitis media, recurrence not specified H65.03 ; Mixed hyperlipidemia E78.2 ; Essential hypertension I10 ; Immunization counseling Z71.89 and Encounter for immunization Z23 [address] [address] Apr, Neck pain M54.[address] [address] Mar, Neuroforaminal stenosis of s pine M99.89 [place] [address] [address] Mar, Pharyngitis due to other org anism J02.[address] [address] Feb, Neuroforaminal stenosis of s pine M99.89 [facility] [address] [id number] [address] [place] [address] Feb, UTI (urinary tract infection ) N39.0 [facility] [address] [id number] [address] [place] [address] Feb, Recent urinary tract infecti on Z87.440 ; Neuroforaminal stenosis of spine M99.89 ; Neck pain M54.2 ; Chronic pain due to trauma G89.21 and Recurrent UTI N39.0 [facility] [address] [id number] [address] [place] [address] Feb, [facility] [address] [id number] [address] [place] [address] Jan, Neuroforaminal stenosis of s pine M99.89 [facility] [address] [id number] [address] [place] [address] Dec, Neuroforaminal stenosis of s pine M99.89 [facility] [address] [id number] [address] [place] [address] Dec, Acute seasonal allergic rhin itis due to pollen J30.1 [facility] [address] [id number] [address] [place] [address] Dec, [facility] [address] [id number] [address] [place] [address] Dec, Acute seasonal allergic rhin itis, unspecified trigger J30.2 ; Allergic conjunctivitis of both eyes H10.13 and Dysfunction of both eustachian tubes H69.83 [facility] [address] [id number] [address] [place] [address] Dec, [facility] [address] [id number] [address] [place] [address] Dec, Nevus D22.9 [facility] [address] [id number] [address] [place] [address] Nov, Chronic pain due to trauma G 89.21 and Neuroforaminal stenosis of spine M99.89 [facility] [address] [id number] [address] [place] [address] Nov, Neuroforaminal stenosis of s pine M99.89 ; Essential hypertension I10 ; Mixed hyperlipidemia E78.2 ; Hypokalemia E87.6 ; Neck pain M54.2 and Nevus D22.9 [facility] [address] [id number] [address] [place] [address] Oct, Neuroforaminal stenosis of s pine M99.89 [facility] [address] [id number] [address] [place] [address] Sep, Neuroforaminal stenosis of s pine M99.89 [facility] [address] [id number] [address] [place] [address] Sep, [facility] [address] [id number] [address] [place] [address] August, [facility] [address] [id number] [address] [place] [address] August, Neck pain M54.2 and Neurofor aminal stenosis of spine M99.89 [facility] [address] [id number] [address] [place] [address] August, Routine gynecological examin ation Z01.419 and Screening breast examination Z12.39 [facility] [address] [id number] [address] [place] [address] Jul, [facility] [address] [id number] [address] [place] [address] Jul, [facility] [address] [id number] [address] [place] [address] Jul, Neuroforaminal stenosis of s pine M99.89 [facility] [address] [id number] [address] [place] [address] Jul, [facility] [address] [facility] [id number] [address] [place] [address] Jul, Neuroforaminal stenosis of l umbar 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 [facility] [address] [facility] [id number] [address] [place] [address] Jul, [facility] [address] [place] [id number] [address] [place] [address] Jul, [facility] [address] [facility] [id number] [address] [place] [address] Jun, Neuroforaminal stenosis of s jose M99.89 [place] [address] [place] [id number] [address] [place] [address] Jun, Uterine leiomyoma, unspecifi ed location D25.9 and Allergic reaction caused by a drug, initial encounter T78.40XA [place] [address] [place] [address] Jun, [place] [address] [facility] [id number] [address] [place] [address] May, UTI symptoms R39.9 and Pain of right sacroiliac joint M53.3 [place] [address] [place] [id number] [address] [place] [address] May, Neuroforaminal stenosis of s jose M99.89 [place] [address] [place] [address] May, [place] [address] [place] [id number] [address] [place] [address] May, Acute mucoid otitis media of left ear H65.112 and Acute non- recurrent maxillary sinusitis J01.00 [place] [address] [place] [id number] [address] [place] [address] May, Acute bacterial conjunctivit is of both eyes H10.33 ; Left arm pain M79.602 and Hypokalemia E87.6 [place] [address] [place] [id number] [address] [place] [address] Apr, [place] [address] [facility] [id number] [address] [place] [address] Apr, Neuroforaminal stenosis of s pine M99.89 ; Neck pain M54.2 ; Chronic pain due to trauma G89.21 ; Mixed hyperlipidemia E78.2 ; Essential hypertension I10 and Hypokalemia E87.6 [place] [address] [id number] [address] [place] [address] Mar, Oral candidiasis B37.0 ; Nathaniel roforaminal stenosis of spine M99.89 ; Neck pain M54.2 and Chronic pain due to trauma G89.21 [place] [address] [place] [id number] [address] [place] [address] Feb, [place] [address] [place] [id number] [address] [place] [address] Feb, [place] [address] [place] [id number] [address] [place] [address] Feb, UTI (urinary tract infection ) N39.0 [place] [address] [place] [id number] [address] [place] [address] Feb, Dysuria R30.0 [place] [address] [place] [id number] [address] [place] [address] Feb, Dysuria R30.0 [place] [address] [place] [id number] [address] [place] [address] 02 Feb, 2016 Neuroforaminal stenosis of s pine M99.89 ; Neck pain M54.2 ; Essential hypertension I10 ; Chronic pain due to trauma G89.21 ; Dysuria R30.0 ; Abnormal MRI, shoulder R93.8 and Acute cystitis without hematuria N30.00 [place] [address] [place] [id number] [address] [place] [address] Jan, [place] [address] [place] [id number] [address] [place] [address] Jan, [facility] [address] [id number] [address] [place] [address] Jan, [facility] [address] [id number] [address] [place] [address] Jan, Abnormal MRI R93.8 [facility] [address] [id number] [address] [place] [address] 29 Dec, 2015 [facility] [address] [id number] [address] [place] [address] 15 Dec, 2015 Acute pain of left shoulder M25.512 [facility] [address] [id number] [address] [place] [address] 09 Dec, 2015 [facility] [address] [id number] [address] [place] [address] 08 Dec, 2015 [facility] [address] [id number] [address] [place] [address] 07 Dec, 2015 Acute pain of left shoulder M25.512 [facility] [address] [id number] [address] [place] [address] Nov, [facility] [address] [id number] [address] [place] [address] 16 Nov, 2015 Neuroforaminal stenosis of s pine M99.89 ; Neck pain M54.2 ; Abnormal mammogram R92.8 ; Essential hypertension I10 and Chronic pain due to trauma G89.21 [facility] [address] [id number] [address] [place] [address] Nov, [facility] [address] [id number] [address] [place] [address] Oct, Acute stress disorder F43.0 [facility] [address] [id number] [address] [place] [address] Oct, [facility] [address] [id number] [address] [place] [address] 14 Oct, 2015 [facility] [address] [id number] [address] [place] [address] Oct, [facility] [address] [id number] [address] [place] [id number] Sep, [facility] [address] [id number] [address] [place] [id number] August, [facility] [address] [id number] [address] [place] [id number] Jul, Neuroforaminal stenosis of s pine M99.89 ; Neck pain M54.2 ; Abnormal mammogram R92.8 and Essential hypertension I10 [facility] [address] [id number] [address] [place] [id number] Jul, [facility] [address] [id number] [address] [place] [id number] Jul, [facility] [address] [id number] [address] [place] [id number] Jul, Abnormal mammogram R92.8 [facility] [address] [id number] [address] [place] [id number] Jul, [facility] [address] [id number] [address] [place] [id number] Jul, UTI (urinary tract infection ) N39.0 [facility] [address] [id number] [address] [place] [id number] Jul, Dysuria R30.0 [facility] [address] [id number] [address] [place] [id number] Jun, [facility] [address] [id number] [address] [place] [id number] Jun, [facility] [address] [id number] [address] [place] [id number] Jun, Hypokalemia E87.6 and Hematu martina R31.9 [facility] [address] [id number] Jun, Hypokalemia E87.6 [place] [address] [id number] Jun, [place] [address] [id number] Jun, Hypokalemia E87.6 [place] [address] [id number] Jun, Hypokalemia E87.6 [place] [address] [id number] Jun, Neuroforaminal stenosis of s pine M99.89 ; Hypokalemia E87.6 ; Neck pain M54.2 ; Essential hypertension I10 ; Mixed hyperlipidemia E78.2 and Screening breast examination Z12.39 [place] [address] [id number] Jun, Dysuria R30.0 ; UTI (urinary tract infection) N39.0 and Hematuria R31.9 [place] [address] [id number] May, [place] [address] [id number] May, High risk sexual behavior Z7 2.51 ; Hypokalemia E87.6 ; Neuroforaminal stenosis of spine M99.89 ; Neck pain M54.2 ; Essential hypertension I10 ; Mixed hyperlipidemia E78.2 ; STD exposure Z20.2 and Concern about STD in female without diagnosis Z71.[address] [id number] 16 May, 2015 Neuroforaminal stenosis of s pine M99.89 ; Neck pain M54.2 ; Hypokalemia E87.6 ; Essential hypertension I10 and Mixed hyperlipidemia E78.2 [place] [address] [id number] 11 May, 2015 [facility] [address] [id number] [address] [place] [address] 08 May, 2015 High risk sexual behavior Z7 2.51 ; STD exposure Z20.2 and Concern about STD in female without diagnosis Z71.1 [facility] [address] [id number] [address] [place] [address] May, [place] [address] [id number] Apr, Neuroforaminal stenosis of s pine M99.89 ; Mixed hyperlipidemia E78.2 ; Essential hypertension I10 and Hypokalemia E87.6 [place] [address] [address] Mar, [place] [address] [id number] Mar, Hypokalemia E87.6 [place] [address] [address] Mar, Neuroforaminal stenosis of s pine M99.89 ; Mixed hyperlipidemia E78.2 ; Neck pain M54.2 ; Essential hypertension I10 ; Abnormal fasting glucose R73.09 ; Hypokalemia E87.6 and Constipation K59.00 [place] [address] [place] [id number] [address] [place] [address] Feb, Neuroforaminal stenosis of s pine M99.89 ; Mixed hyperlipidemia E78.2 ; Neck pain M54.2 ; Essential hypertension I10 ; Abnormal fasting glucose R73.09 ; Hypokalemia E87.6 and Constipation K59.00 [place] [address] [address] Feb, Elevated fasting blood sugar R73.01 [place] [address] [address] Feb, Elevated fasting blood sugar R73.01 [place] [address] [id number] [address] [place] [address] Feb, Hair loss L65.9 [place] [address] [facility] [id number] [address] [place] [address] Feb, Sinusitis J32.9 ; Essential hypertension I10 and Hair loss L65.9 [place] [address] [facility] [id number] [address] [place] [address] Jan, [place] [address] [facility] [id number] [address] [place] [address] Jan, Essential hypertension I10 ; Neuroforaminal stenosis of spine M99.89 ; Neck pain M54.2 ; Mixed hyperlipidemia E78.2 and Anxiety F41.9 [place] [address] [facility] [id number] [address] [place] [address] Jan, [place] [address] [place] [id number] [place] [address] Jan, Mixed hyperlipidemia E78.2 ; Essential (primary) hypertension I10 ; Strain of muscle, fascia and tendon at neck level, subsequent encounter S16.1XXD and Tension-type headache, unspecified, not intractable G44.209 [place] [address] [id number] [address] [place] [address] Dec, Lumbar back pain 724.2 and N euroforaminal stenosis of spine 724.00 [place] [address] [id number] [address] [place] [address] Nov, [place] [address] [id number] [address] [place] [address] Nov, Lumbar back pain 724.2 and N euroforaminal stenosis of spine 724.00 [place] [address] [facility] [id number] [address] [place] [address] Nov, Edema 782.3 ; Lumbar back pa in 724.2 ; Essential hypertension, benign 401.1 ; Hyperlipemia 272.4 ; Neuroforaminal stenosis of spine 724.00 and Post-concussion headache 339.20 [facility] [address] [id number] [address] [place] [address] Nov, [facility] [address] [id number] [address] [place] [address] Nov, [facility] [address] [id number] [address] [place] [address] Oct, Essential hypertension, sheridan gn 401.1 [facility] [address] [id number] [address] [place] [address] Oct, Edema 782.3 ; Lumbar back pa in 724.2 ; Essential hypertension, benign 401.1 ; Hyperlipemia 272.4 ; Neuroforaminal stenosis of spine 724.00 and Post-concussion headache 339.20 [facility] [address] [id number] [address] [place] [address] Oct, [facility] [address] [id number] [address] [place] [address] Oct, Edema 782.3 [facility] [address] [id number] [address] [place] [address] Oct, Lumbar back pain 724.2 [place] [address] [id number] [address] [place] [address] Oct, Cervicalgia 723.1 ; Lumbar b ack pain 724.2 and High risk medication use V58.69 [facility] [address] [id number] [address] [place] [address] Sep, [facility] [address] [id number] [address] [place] [address] Sep, Lumbar strain 847.2 [facility] [address] [id number] [address] [place] [address] August, Edema 782.3 and Eustachian t ube dysfunction 381.81 [place] [address] [id number] [address] [place] [address] August, [facility] [address] [id number] [address] [place] [address] August, Eustachian tube dysfunction 381.81 [facility] [address] [id number] [address] [place] [address] Jul, Otalgia 388.70 and Otitis me jonathon 382.9 [facility] [address] [id number] [address] [place] [address] Jul, [facility] [address] [id number] [address] [place] [address] Jul, [facility] [address] [id number] [address] [place] [address] Jul, [facility] [address] [id number] [address] [place] [address] Jul, [facility] [address] [id number] [address] [place] [address] Jul, [facility] [address] [id number] [address] [place] [address] Jun, [facility] [address] [id number] [address] [place] [address] Jun, [facility] [address] [id number] [address] [place] [address] Jun, [facility] [address] [id number] [address] [place] [address] May, [facility] [address] [id number] [address] [place] [address] May, [facility] [address] [id number] [address] [place] [address] May, [facility] [address] [id number] [address] [place] [address] May, [facility] [address] [id number] [address] [place] [address], [place] [address] 17 May, 2014 [facility] [address] [id number] [address] [place] [address], [place] [address] May, 2014 [facility] [address] [id number] [address] [place] [address], [place] [address] May, 2014 [facility] [address] [id number] [address] [place] [address], [place] [address] May, 2014 [facility] [address] [id number] [address] [place] [address], [place] [address] May, 2014 [facility] [address] [id number] [address] [place] [address], [place] [address] May, [facility] [address] [id number] [address] [place] [address], [place] [address] Apr, [facility] [address] [id number] [address] [place] [address], [place] [address] Apr, [facility] [address] [id number] [address] [place] [address], [place] [address] Apr, [facility] [address] [id number] [address] [place] [address], [place] [address] Apr, [facility] [address] [id number] [address] [place] [address], [place] [address] Apr, [facility] [address] [id number] [address] [place] [address], [place] [address] Apr, [facility] [address] [id number] [address] [place] [address], [place] [address] Apr, [facility] [address] [id number] [address] [place] [address], [place] [address] Apr, [facility] [address] [id number] [address] [place] [address], [place] [address] Apr, [facility] [address] [id number] [address] [place] [address], [place] [address] Apr, [facility] [address] [id number] [address] [place] [address], [place] [address] Apr, [facility] [address] [id number] [address] [place] [address], [place] [address] Apr, [facility] [address] [id number] [address] [place] [address], [place] [address] Apr, [facility] [address] [id number] [address] [place] [address], [place] [address] Apr, [facility] [address] [id number] [address] [place] [address], [place] [address] Apr, [facility] [address] [id number] [address] [place] [address], [place] [address] Mar, [facility] [address] [id number] [address] [place] [address], [place] [address] Mar, [facility] [address] [id number] [address] [place] [address], [place] [address] Mar, [facility] [address] [id number] [address] [place] [address], [place] [address] Mar, [facility] [address] [id number] [address] [place] [address], [place] [address] Feb, [facility] [address] [id number] [address] [place] [address] Feb, [facility] [address] [id number] [address] [place] [address] Feb, [facility] [address] [id number] [address] [place] [address], [place] [address] Feb, [facility] [address] [id number] [address] [place] [address], [place] [address] Jan, [facility] [address] [id number] [address] [place] [address] Jan, [facility] [address] [id number] [address] [place] [address], [place] [address] Jan, [facility] [address] [id number] [address] [place] [address], [place] [address] Jan, [facility] [address] [id number] [address] [place] [address], [place] [address] Jan, [facility] [address] [id number] [address] [place] [address], [place] [address] Jan, [facility] [address] [id number] [address] [place] [address], [place] [address] Jan, [facility] [address] [id number] [address] [place] [address], [place] [address] Jan, [facility] [address] [id number] [address] [place] [address], [place] [address] Dec, [facility] [address] [id number] [address] [place] [address], [place] [address] Dec, [facility] [address] [id number] [address] [place] [address], [place] [address] Dec, [facility] [address] [id number] [address] [place] [address], [place] [address] Dec, [facility] [address] [id number] [address] [place] [address], [place] [address] Oct, [facility] [address] [id number] [address] [place] [address], [place] [address] Oct, [facility] [address] [id number] [address] [place] [address], [place] [address] Oct, [facility] [address] [id number] [address] [place] [address], [place] [address] Oct, [facility] [address] [id number] [address] [place] [address], [place] [address] Oct, [facility] [address] [id number] [address] [place] [address], [place] [address] Oct, [facility] [address] [id number] [address] [place] [address], [place] [address] Oct, [facility] [address] [id number] [address] [place] [address], [place] [address] Oct, [facility] [address] [id number] [address] [place] [address], [place] [address] Sep, [facility] [address] [id number] [address] [place] [address], [place] [address] Sep, [facility] [address] [id number] [address] [place] [address], [place] [address] Sep, [facility] [address] [id number] [address] [place] [address], [place] [address] Sep, [facility] [address] [id number] [address] [place] [address], [place] [address] Sep, [facility] [address] [id number] [address] [place] [address], [place] [address] Sep, [facility] [address] [id number] [address] [place] [address], [place] [address] Sep, [facility] [address] [id number] [address] [place] [address], [place] [address] Sep, [facility] [address] [id number] [address] [place] [address], [place] [address] Sep, [facility] [address] [id number] [address] [place] [address], [place] [address] Sep, [facility] [address] [id number] [address] [place] [address], [place] [address] August, [facility] [address] [id number] [address] [place] [address], [place] [address] August, [facility] [address] [id number] [address] [place] [address], [place] [address] August, [facility] [address] [id number] [address] [place] [address], [place] [address] August, [facility] [address] [id number] [address] [place] [address], [place] [address] August, [facility] [address] [id number] [address] [place] [address], [place] [address] August, [facility] [address] [id number] [address] [place] [address], [place] [address] August, [facility] [address] [id number] [address] [place] [address], [place] [address] August, [facility] [address] [id number] [address] [place] [address], [place] [address] August, [facility] [address] [id number] [address] [place] [address], [place] [address] August, [facility] [address] [id number] [address] [place] [address], [place] [address] August, [facility] [address] [id number] [address] [place] [address], [place] [address] August, [facility] [address] [id number] [address] [place] [address], [place] [address] Jul, [facility] [address] [id number] [address] [place] [address], [place] [address] Jul, [facility] [address] [id number] [address] [place] [address], [place] [address] Jul, [facility] [address] [id number] [address] [place] [address], [place] [address] Jul, [facility] [address] [id number] [address] [place] [address], [place] [address] Jul, [facility] [address] [id number] [address] [place] [address], [place] [address] Jul, [facility] [address] [id number] [address] [place] [address], [place] [address] Jun, [facility] [address] [id number] [address] [place] [address], [place] [address] Jun, [facility] [address] [id number] [address] [place] [address], [place] [address] May, [facility] [address] [id number] [address] [place] [address], [place] [address] May, [facility] [address] [id number] [address] [place] [address], [place] [address] Apr, [facility] [address] [id number] [address] [place] [address], [place] [address] Apr, [facility] [address] [id number] [address] [place] [address], [place] [address] Apr, [facility] [address] [id number] [address] [place] [address], [place] [address] Apr, [facility] [address] [id number] [address] [place] [address], [place] [address] Apr, [facility] [address] [id number] [address] [place] [address], [place] [address] Apr, [facility] [address] [id number] [address] [place] [address], [place] [address] Apr, [facility] [address] [id number] [address] [place] [address], [place] [address] Apr, [facility] [address] [id number] [address] [place] [address], [place] [address] Apr, [facility] [address] [id number] [address] [place] [address], [place] [address] Apr, [facility] [address] [id number] [address] [place] [address], [place] [address] Apr, [facility] [address] [id number] [address] [place] [address], [place] [address] Apr, [facility] [address] [id number] [address] [place] [address], [place] [address] Apr, [facility] [address] [id number] [address] [place] [address], [place] [address] Mar, [facility] [address] [id number] [address] [place] [address], [place] [address] Mar, [facility] [address] [id number] [address] [place] [address], [place] [address] Mar, [facility] [address] [id number] [address] [place] [address], [place] [address] Mar, [facility] [address] [id number] [address] [place] [address], [place] [address] Feb, [facility] [address] [id number] [address] [place] [address], [place] [id number] Feb, [facility] [address] [id number] [address] [place] [address], [place] [address] Feb, [facility] [address] [id number] [address] [place] [address] Feb, [facility] [address] [id number] [address] [place] [address], [place] [address] 14 Jan, 2013 [facility] [address] [id number] [address] [place] [id number] 14 Jan, 2013 [facility] [address] [id number] [address] [place] [id number] Jan, [facility] [address] [id number] [address] [place] [id number] 11 Jan, 2013 [facility] [address] [id number] [address] [place] [address], [place] [id number] 10 Jan, 2013 [facility] [address] [id number] [address] [place] [id number] 10 Jan, 2013 [facility] [address] [id number] [address] [place] [id number] 09 Jan, 2013 [facility] [address] [id number] [address] [place] [address], [place] [address] Jan, [facility] [address] [id number] [address] [place] [address], [place] [address] Jan, [facility] [address] [id number] [address] [place] [address], [place] [id number] 26 Dec, 2012 [facility] [address] [id number] [address] [place] [address], [place] [id number] 16 Dec, 2012 [facility] [address] [id number] [address] [place] [address], [place] [id number] 16 Dec, 2012 [facility] [address] [id number] [address] [place] [address], [place] [id number] Dec, [facility] [address] [id number] [address] [place] [address], [place] [id number] Nov, [facility] [address] [id number] [address] [place] [address], [place] [address] Nov, [facility] [address] [id number] [address] [place] [address], [place] [id number] Nov, [facility] [address] [id number] [address] [place] [address], [place] [address] Nov, [facility] [address] [id number] [address] [place] [address], [place] [address] Oct, [facility] [address] [id number] [address] [place] [address], [place] [address] Sep, [facility] [address] [id number] [address] [place] [address], [place] [address] August, [facility] [address] [id number] [address] [place] [address], [place] [address] August, [facility] [address] [id number] [address] [place] [address], [place] [id number] August, [facility] [address] [id number] [address] [place] [address], [place] [address] August, [facility] [address] [id number] [address] [place] [address], [place] [address] August, [facility] [address] [id number] [address] [place] [address], [place] [id number] August, [facility] [address] [id number] [address] [place] [address], [place] [address] August, [facility] [address] [id number] [address] [place] [address], [place] [address] August, [facility] [address] [id number] [address] [place] [address], [place] [id number] August, [facility] [address] [id number] [address] [place] [address], [place] [address] August, [facility] [address] [id number] [address] [place] [address], [place] [address] August, [facility] [address] [id number] [address] [place] [address], [place] [address] August, [facility] [address] [id number] [address] [place] [address], [place] [address] Jul, [facility] [address] [id number] [address] [place] [address], [place] [address] Jul, [facility] [address] [id number] [address] [place] [address], [place] [address] Jul, [facility] [address] [id number] [address] [place] [address], [place] [address] Jul, [facility] [address] [id number] [address] [place] [address], [place] [address] Jul, [facility] [address] [id number] [address] [place] [address], [place] [address] Jul, [facility] [address] [id number] [address] [place] [address], [place] [id number] 04 Jul, 2012 [facility] [address] [id number] [address] [place] [id number] Jul, [facility] [address] [id number] [address] [place] [address], [place] [address] Jul, [facility] [address] [id number] [address] [place] [address], [place] [address] Jul, [facility] [address] [id number] [address] [place] [address], [place] [address] Jul, [facility] [address] [id number] [address] [place] [address], [place] [address] Jun, [facility] [address] [id number] [address] [place] [address], [place] [address] Jun, [facility] [address] [id number] [address] [place] [address], [place] [address] Jun, [facility] [address] [id number] [address] [place] [address], [place] [address] Jun, [facility] [address] [id number] [address] [place] [address], [place] [address] May, [facility] [address] [id number] [address] [place] [address], [place] [address] May, [facility] [address] [id number] [address] [place] [address], [place] [address] May, [facility] [address] [id number] [address] [place] [address], [place] [address] May, [facility] [address] [id number] [address] [place] [id number] May, [facility] [address] [id number] [address] [place] [address], [place] [address] May, [facility] [address] [id number] [address] [place] [id number] Apr, [facility] [address] [id number] [address] [place] [address] Apr, [facility] [address] [id number] [address] [place] [address], [place] [address] 30 Apr, 2012 [facility] [address] [id number] [address] [place] [address], [place] [address] Apr, [facility] [address] [id number] [address] [place] [address], [place] [address] 15 Mar, 2012 [facility] [address] [id number] [address] [place] [address], [place] [address] 14 Mar, 2012 [facility] [address] [id number] [address] [place] [address], [place] [address] 14 Mar, 2012 [facility] [address] [id number] [address] [place] [address], [place] [address] Mar, [facility] [address] [id number] [address] [place] [address], [place] [address] Mar, [facility] [address] [id number] [address] [place] [address], [place] [address] Mar, [facility] [address] [id number] [address] [place] [address], [place] [address] Mar, [facility] [address] [id number] [address] [place] [address], [place] [address] Feb, [facility] [address] [id number] [address] [place] [address], [place] [address] Feb, [facility] [address] [id number] [address] [place] [address], [place] [address] Feb, [facility] [address] [id number] [address] [place] [address], [place] [address] Feb, [facility] [address] [id number] [address] [place] [address], [place] [address] Jan, [facility] [address] [id number] [address] [place] [address], [place] [address] Jan, [facility] [address] [id number] [address] [place] [address], [place] [address] Jan, [facility] [address] [id number] [address] [place] [address], [place] [address] Jan, [facility] [address] [id number] [address] [place] [address], [place] [address] Jan, [facility] [address] [id number] [address] [place] [address], [place] [address] Jan, [facility] [address] [id number] [address] [place] [address], [place] [address] Dec, [facility] [address] [id number] [address] [place] [address], [place] [address] Dec, [facility] [address] [id number] [address] [place] [address], [place] [address] Nov, [facility] [address] [id number] [address] [place] [address], [place] [address] Sep, [facility] [address] [id number] [address] [place] [address], [place] [address] August, [facility] [address] [id number] [address] [place] [address], [place] [address] August, [facility] [address] [id number] [address] [place] [address], [place] [address] August, [facility] [address] [id number] [address] [place] [address], [place] [address] August, [facility] [address] [id number] [address] [place] [address], [place] [address] August, [facility] [address] [id number] [address] [place] [address], [place] [address] Jun, [facility] [address] [id number] [address] [place] [address], [place] [address] Jun, [facility] [address] [id number] [address] [place] [address], [place] [address] Apr, [facility] [address] [id number] [address] [place] [address], [place] [address] 20 Apr, 2011 [facility] [address] [id number] [address] [place] [address], [place] [address] 23 Mar, 2011 [facility] [address] [id number] [address] [place] [address], [place] [address] Feb, [facility] [address] [id number] [address] [place] [address], [place] [address] 14 Feb, 2011 [facility] [address] [id number] [address] [place] [address], [place] [address] 14 Feb, 2011 [facility] [address] [id number] [address] [place] [address], [place] [address] 17 Jan, 2011 [facility] [address] [id number] [address] [place] [address], [place] [address] 15 Jan, 2011 [facility] [address] [id number] [address] [place] [address], [place] [address] 15 Jan, 2011 [facility] [address] [id number] [address] [place] [address], [place] [address] 14 Jan, 2011 [facility] [address] [id number] [address] [place] [address], [place] [address] 15 May, 2010 [facility] [address] [id number] [address] [place] [address], [place] [address] 04 Mar, 2010 [facility] [address] [id number] [address] [place] [address], [place] [address] Oct, [facility] [address] [id number] [address] [place] [address], [place] [address] Sep, [facility] [address] [id number] [address] [place] [address], [place] [address] Mar, [facility] [address] [id number] [address] [place] [address], [place] [address] Jan, [facility] [address] [id number] [address] [place] [address], [place] [address] Jan, [facility] [address] [facility] [id number] [address] [place] [address] May, IMMUNIZATIONS No Known Immunizations SOCIAL HISTORY [...] squamous atypia (no definite dyplasia). Performed at [facility] Dr. Joy. Medical History Acute [...]
--- OUTSIDE RECORDS SUMMARY | 2019-11-23 05:55 | XMS REPORT ---
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 Name Role Phone Migration, Doctor Unavailable Unavailable PROBLEMS Type Condition ICD9-CM Code NZM08-UL Code Onset Dates Condition S tatus SNOMED Code Problem Hematuria, unspecified type R31.9 Ac tive 65307880 Problem Abnormal renal ultrasound R93.429 Acti ve [id number] Problem Anxiety F41.9 Active 58209017 Problem Hypokalemia E87.6 Active 47557170 Problem Abnormal glucose R73.09 Active 102 025972 Problem Chronic pain due to trauma G89.21 Act juanis [id number] Problem Neuroforaminal stenosis of spine M99.89 Active 109076051571 Problem Neck pain M54.2 Active 63107043 Problem Essential hypertension I10 Active 58171184 Problem Mixed hyperlipidemia E78.2 Active 20186279 ALLERGIES No Information ENCOUNTERS Encounter Location Date Diagnosis [facility] [id number] [place] [address] Nov, [facility] [address] [address] Nov, Neuroforaminal stenosis of s pine M99.89 [facility] [id number] [place] [address] Nov, Acute non-recurrent maxillar y sinusitis J01.00 [facility] [id number] [place] [address] Oct, Hypokalemia E87.6 [facility] [id number] [place] [address] Oct, Wasp sting, undetermined int ent, initial encounter T63.464A and Cellulitis of left lower extremity L03.116 [facility] [id number] [place] [address] Oct, Neuroforaminal stenosis of s pine M99.89 [facility] [address] [id number] [address] [place] [address] Sep, [facility] [address] [id number] [address] [place] [address] Sep, [facility] [address] [id number] [address] [place] [address] Sep, Routine screening for STI (s exually transmitted infection) Z11.3 [place] [address] [id number] [address] [place] [address] 14 Sep, 2018 Routine screening for STI (s exually transmitted infection) Z11.3 ; Well woman exam with routine gynecological exam Z01.419 and Breast cancer screening Z12.39 [place] [address] [id number] [address] [place] [address] Sep, Neuroforaminal stenosis of s pine M99.89 [place] [address] [id number] [address] [place] [address] August, Neuroforaminal stenosis of s pine M99.89 [place] [address] [facility] [id number] [address] [place] [address] August, Neuroforaminal stenosis of s pine M99.89 ; Chronic pain due to trauma G89.21 and Mixed hyperlipidemia E78.2 [place] [address] [id number] [address] [place] [address] Jul, Viral upper respiratory illn ess J06.9 and Acute non-recurrent frontal sinusitis J01.10 [facility] [address] [id number] [address] [place] [address] Jul, Congestion of nasal sinus R0 9.81 [place] [address] [facility] [id number] [address] [place] [address] Jul, Neuroforaminal stenosis of s pine M99.89 and Essential hypertension I10 [place] [address] [id number] [address] [place] [address] May, Neuroforaminal stenosis of s pine M99.89 [facility] [address] [id number] [address] [place] [address] May, [facility] [address] [id number] [address] [place] [address] May, Congestion of nasal sinus R0 9.81 [facility] [address] [id number] [address] [place] [address] May, [facility] [address] [id number] [address] [place] [address] Apr, Neuroforaminal stenosis of s pine M99.89 [facility] [address] [id number] [address] [place] [address] Apr, Neuroforaminal stenosis of s pine M99.89 and Chronic pain due to trauma G89.21 [facility] [address] [id number] [address] [place] [address] Mar, UTI (urinary tract infection ) N39.0 [facility] [address] [id number] [address] [place] [address] Mar, Vertigo R42 [facility] [address] [id number] [address] [place] [address] Mar, Neuroforaminal stenosis of s pine M99.89 [facility] [address] [id number] [address] [place] [address] Feb, Extensor tendon disruption M 67.89 [facility] [address] [id number] [address] [place] [address] Feb, Neuroforaminal stenosis of s pine M99.89 and High risk medication use Z79.899 [facility] [address] [id number] [address] [place] [address] Jan, Hypokalemia E87.6 [place] [address] [facility] [id number] [address] [place] [address] Jan, Flank pain R10.9 and Acute r ight-sided low back pain without sciatica M54.5 [place] [address] [facility] [id number] [address] [place] [address] Jan, Hypokalemia E87.6 [place] [address] [id number] [address] [place] [address] Jan, [place] [id number] [place] [address] Jan, URI, acute J06.9 [place] [id number] [place] [address] Jan, Neuroforaminal stenosis of s pine M99.89 [place] [address] [address] 13 Dec, 2017 Lateral epicondylitis, right elbow M77.11 [place] [address] [address] 11 Dec, 2017 Allergic rhinitis due to monica rosalina, unspecified seasonality J30.1 and Allergic conjunctivitis of both eyes H10.13 [place] [address] [address] 10 Dec, 2017 Neuroforaminal stenosis of s pine M99.89 [place] [address] [id number] [address] [place] [address] 06 Dec, 2017 Mixed hyperlipidemia E78.2 [place] [address] [id number] [address] [place] [address] 05 Dec, 2017 Abnormal glucose R73.09 ; Ab normal renal ultrasound R93.429 ; Dysuria R30.0 ; Cystitis without hematuria N30.90 ; Hypokalemia E87.6 ; Mixed hyperlipidemia E78.2 and Hematuria, unspecified type R31.9 [place] [address] [id number] [address] [place] [address] Nov, Hypokalemia E87.6 ; Mixed hy perlipidemia E78.2 and Hematuria, unspecified type R31.9 [place] [address] [facility] [id number] [address] [place] [address] Nov, [place] [address] [facility] [id number] [address] [place] [address] Nov, Hypokalemia E87.6 [place] [address] [facility] [id number] [address] [place] [address] Nov, [place] [address] [facility] [id number] [address] [place] [address] Nov, Abnormal renal ultrasound R9 3.429 [place] [address] [facility] [id number] [address] [place] [address] Nov, Abnormal renal ultrasound R9 3.429 [place] [address] [id number] [address] [place] [address] Nov, Hematuria, unspecified type R31.9 and Neuroforaminal stenosis of spine M99.89 [place] [address] [id number] [address] [place] [address] Nov, Dysuria R30.0 [place] [address] [facility] [id number] [address] [place] [address] Oct, Lateral epicondylitis, right elbow M77.11 [place] [address] [facility] [id number] [address] [place] [address] Oct, Neuroforaminal stenosis of s pine M99.89 ; Visit for TB skin test Z11.1 and Essential hypertension I10 [place] [address] [facility] [id number] [address] [place] [address] Oct, [place] [address] [facility] [id number] [address] [place] [address] Oct, Neuroforaminal stenosis of s pine M99.89 [place] [address] [id number] [address] [place] [address] 10 Oct, 2017 Visit for TB skin test Z11.1 [place] [address] [id number] [address] [place] [address] 05 Oct, 2017 Cystitis without hematuria N 30.90 [place] [address] [facility] [id number] [address] [place] [address] 28 Sep, 2017 Screening breast examination Z12.39 [place] [address] [facility] [id number] [address] [place] [address] 26 Sep, 2017 Dysuria R30.0 and Cystitis w ithout hematuria N30.90 [place] [address] [facility] [id number] [address] [place] [address] 14 Sep, 2017 Essential hypertension I10 a nd Neuroforaminal stenosis of spine M99.89 [place] [address] [facility] [id number] [address] [place] [address] 04 Sep, 2017 Abnormal glucose R73.09 [place] [address] [facility] [id number] [address] [place] [address] August, Lateral epicondylitis, right elbow M77.11 [place] [address] [facility] [id number] [address] [place] [address] August, Screen for STD (sexually tra nsmitted disease) Z11.3 [place] [address] [facility] [id number] [address] [place] [address] August, Neuroforaminal stenosis of s pine M99.89 ; Mixed hyperlipidemia E78.2 ; Elevated fasting glucose R73.01 ; Screening mammogram, encounter for Z12.31 and Encounter for well woman exam without gynecological exam Z00.00 [place] [address] [facility] [id number] [address] [place] [address] 17 Aug, 2017 Neuroforaminal stenosis of s pine M99.89 [place] [address] [facility] [id number] [address] [place] [address] August, Essential hypertension I10 ; Hypokalemia E87.6 and Mixed hyperlipidemia E78.2 [facility] [address] [id number] [address] [place] [address] Jul, [facility] [address] [id number] [address] [place] [address] Jul, Neuroforaminal stenosis of s pine M99.89 [facility] [address] [id number] [address] [place] [address] Jul, Lateral epicondylitis, right elbow M77.11 [facility] [address] [id number] [address] [place] [address] Jul, [place] [address] [id number] [address] [place] [address] Jun, High ankle sprain of right l ower extremity, initial encounter S93.431A [place] [address] [id number] [address] [place] [address] Jun, Essential hypertension I10 [facility] [address] [id number] [address] [place] [address] Jun, [facility] [address] [id number] [address] [place] [address] Jun, [facility] [address] [id number] [address] [place] [address] Jun, Neuroforaminal stenosis of s pine M99.89 [facility] [address] [id number] [address] [place] [address] Jun, Pain of right upper extremit y M79.601 and Essential hypertension I10 [facility] [address] [id number] [address] [place] [address] Jun, [facility] [address] [id number] [address] [place] [address] Jun, Dysuria R30.0 ; Acute cystit is with hematuria N30.01 and Screen for STD (sexually transmitted disease) Z11.3 [place] [id number] [place] [address] May, Chronic pain due to trauma G 89.21 [place] [address] [id number] [address] [place] [address] May, Essential hypertension I10 [place] [address] [address] May, Neuroforaminal stenosis of s pine M99.89 [place] [address] [address] Apr, Allergic reaction, initial e ncounter T78.40XA [place] [address] [address] Apr, Low back pain, unspecified b ack pain laterality, unspecified chronicity, with sciatica presence unspecified M54.5 ; Acute cystitis with hematuria N30.01 ; Neuroforaminal stenosis of spine M99.89 ; Bilateral acute serous otitis media, recurrence not specified H65.03 ; Mixed hyperlipidemia E78.2 ; Essential hypertension I10 ; Immunization counseling Z71.89 and Encounter for immunization Z23 [place] [address] [address] Apr, Neck pain M54.2 [place] [address] [address] Mar, Neuroforaminal stenosis of s pine M99.89 [place] [id number] [place] [address] Mar, Pharyngitis due to other org anism J02.8 [place] [address] [address] [id number] [address] [place] [address] Feb, Neuroforaminal stenosis of s pine M99.89 [place] [id number] [address] [place] [address] 08 Feb, 2017 UTI (urinary tract infection ) N39.0 [facility] [address] [id number] [address] [place] [address] Feb, Recent urinary tract infecti on Z87.440 ; Neuroforaminal stenosis of spine M99.89 ; Neck pain M54.2 ; Chronic pain due to trauma G89.21 and Recurrent UTI N39.0 [facility] [address] [id number] [address] [place] [address] Feb, [facility] [address] [id number] [address] [place] [address] Jan, Neuroforaminal stenosis of s pine M99.89 [facility] [address] [id number] [address] [place] [phone] Dec, Neuroforaminal stenosis of s pine M99.89 [facility] [address] [id number] [address] [place] [address] Dec, Acute seasonal allergic rhin itis due to pollen J30.1 [facility] [address] [id number] [address] [place] [address] Dec, [facility] [address] [id number] [address] [place] [address] Dec, Acute seasonal allergic rhin itis, unspecified trigger J30.2 ; Allergic conjunctivitis of both eyes H10.13 and Dysfunction of both eustachian tubes H69.83 [facility] [address] [id number] [address] [place] [address] Dec, [facility] [address] [id number] [address] [place] [address] Dec, Nevus D22.9 [facility] [address] [id number] [address] [place] [address] Nov, Chronic pain due to trauma G 89.21 and Neuroforaminal stenosis of spine M99.89 [facility] [address] [id number] [address] [place] [address] Nov, Neuroforaminal stenosis of s pine M99.89 ; Essential hypertension I10 ; Mixed hyperlipidemia E78.2 ; Hypokalemia E87.6 ; Neck pain M54.2 and Nevus D22.9 [facility] [address] [id number] [address] [place] [address] Oct, Neuroforaminal stenosis of s pine M99.89 [facility] [address] [id number] [address] [place] [address] Sep, Neuroforaminal stenosis of s pine M99.89 [facility] [address] [id number] [address] [place] [address] Sep, [facility] [address] [id number] [address] [place] [address] August, [facility] [address] [id number] [address] [place] [address] August, Neck pain M54.2 and Neurofor aminal stenosis of spine M99.89 [facility] [address] [id number] [address] [place] [address] August, Routine gynecological examin ation Z01.419 and Screening breast examination Z12.39 [facility] [address] [id number] [address] [place] [address] Jul, [facility] [address] [id number] [address] [place] [address] Jul, [facility] [address] [id number] [address] [place] [address] Jul, Neuroforaminal stenosis of s pine M99.89 [facility] [address] [id number] [address] [place] [address] Jul, [facility] [address] [id number] [address] [place] [address] Jul, Neuroforaminal stenosis of l umbar 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 [facility] [address] [id number] [address] [place] [address] Jul, [facility] [address] [id number] [address] [place] [address] Jul, [facility] [address] [id number] [address] [place] [address] Jun, Neuroforaminal stenosis of ayla garcia M99.89 [facility] [address] [id number] [address] [place] [address] Jun, Uterine leiomyoma, unspecifi ed location D25.9 and Allergic reaction caused by a drug, initial encounter T78.40XA [facility] [address] [id number] [address] [place] [address] Jun, [facility] [address] [facility] [id number] [address] [place] [address] May, UTI symptoms R39.9 and Pain of right sacroiliac joint M53.3 [facility] [address] [id number] [address] [place] [address] May, Neuroforaminal stenosis of ayla garcia M99.89 [facility] [address] [facility] [id number] [address] [place] [address] May, [facility] [address] [id number] [address] [place] [address] May, Acute mucoid otitis media of left ear H65.112 and Acute non- recurrent maxillary sinusitis J01.00 [facility] [address] [facility] [id number] [address] [place] [address] May, Acute bacterial conjunctivit is of both eyes H10.33 ; Left arm pain M79.602 and Hypokalemia E87.6 [facility] [address] [id number] [address] [place] [address] Apr, [facility] [address] [facility] [id number] [address] [place] [address] Apr, Neuroforaminal stenosis of s pine M99.89 ; Neck pain M54.2 ; Chronic pain due to trauma G89.21 ; Mixed hyperlipidemia E78.2 ; Essential hypertension I10 and Hypokalemia E87.6 [facility] [address] [id number] [address] [place] [address] Mar, Oral candidiasis B37.0 ; Nathaniel roforaminal stenosis of spine M99.89 ; Neck pain M54.2 and Chronic pain due to trauma G89.21 [facility] [address] [id number] [address] [place] [address] Feb, [facility] [address] [id number] [address] [place] [address] Feb, [facility] [address] [facility] [id number] [address] [place] [address] Feb, UTI (urinary tract infection ) N39.0 [facility] [address] [facility] [id number] [address] [place] [address] Feb, Dysuria R30.0 [facility] [address] [facility] [id number] [address] [place] [address] Feb, Dysuria R30.0 [facility] [address] [id number] [address] [place] [address] Feb, Neuroforaminal stenosis of s pine M99.89 ; Neck pain M54.2 ; Essential hypertension I10 ; Chronic pain due to trauma G89.21 ; Dysuria R30.0 ; Abnormal MRI, shoulder R93.8 and Acute cystitis without hematuria N30.00 [facility] [address] [id number] [address] [place] [address] Jan, [facility] [address] [id number] [address] [place] [address] Jan, [facility] [address] [facility] [id number] [address] [place] [address] Jan, [facility] [address] [id number] [address] [place] [address] Jan, Abnormal MRI R93.8 [facility] [address] [id number] [address] [place] [phone] 29 Dec, 2015 [facility] [address] [id number] [address] [place] [address] 15 Dec, 2015 Acute pain of left shoulder M25.512 [facility] [address] [id number] [address] [place] [id number] 09 Dec, 2015 [facility] [address] [id number] [address] [place] [id number] 08 Dec, 2015 [facility] [address] [id number] [address] [place] [phone] 07 Dec, 2015 Acute pain of left shoulder M25.512 [facility] [address] [id number] [address] [place] [id number] Nov, [facility] [address] [id number] [address] [place] [id number] 16 Nov, 2015 Neuroforaminal stenosis of s pine M99.89 ; Neck pain M54.2 ; Abnormal mammogram R92.8 ; Essential hypertension I10 and Chronic pain due to trauma G89.21 [facility] [address] [id number] [address] [place] [phone] Nov, [facility] [address] [id number] [address] [place] [id number] Oct, Acute stress disorder F43.0 [facility] [address] [id number] [address] [place] [id number] Oct, [facility] [address] [id number] [address] [place] [id number] Oct, [facility] [address] [id number] [address] [place] [phone] Oct, [facility] [address] [id number] [address] [place] [phone] Sep, [facility] [address] [id number] [address] [place] [id number] August, [facility] [address] [id number] [address] [place] [id number] Jul, Neuroforaminal stenosis of s pine M99.89 ; Neck pain M54.2 ; Abnormal mammogram R92.8 and Essential hypertension I10 [facility] [address] [id number] [address] [place] [phone] Jul, [facility] [address] [id number] [address] [place] [id number] Jul, [facility] [address] [facility] [id number] [address] [place] [id number] Jul, Abnormal mammogram R92.8 [facility] [address] [id number] [address] [place] [phone] Jul, [facility] [address] [id number] [address] [place] [id number] Jul, UTI (urinary tract infection ) N39.0 [facility] [address] [facility] [id number] [address] [place] [id number] Jul, Dysuria R30.0 [facility] [address] [address] [id number] [address] [place] [address] Jun, [facility] [address] [id number] [address] [place] [address] Jun, [facility] [address] [id number] [address] [place] [address] Jun, Hypokalemia E87.6 and Hematu martina R31.9 [facility] [address] [id number] [address] [place] [address] Jun, Hypokalemia E87.6 [facility] [address] [id number] [address] [place] [address] Jun, [place] [address] [address] Jun, Hypokalemia E87.6 [place] [address] [address] Jun, Hypokalemia E87.6 [place] [address] [address] Jun, Neuroforaminal stenosis of s pine M99.89 ; Hypokalemia E87.6 ; Neck pain M54.2 ; Essential hypertension I10 ; Mixed hyperlipidemia E78.2 and Screening breast examination Z12.39 [place] [address] [address] Jun, Dysuria R30.0 ; UTI (urinary tract infection) N39.0 and Hematuria R31.9 [place] [address] [address] May, [place] [address] [address] 18 May, 2015 High risk sexual behavior Z7 2.51 ; Hypokalemia E87.6 ; Neuroforaminal stenosis of spine M99.89 ; Neck pain M54.2 ; Essential hypertension I10 ; Mixed hyperlipidemia E78.2 ; STD exposure Z20.2 and Concern about STD in female without diagnosis Z71.1 [place] [address] [address] 16 May, 2015 Neuroforaminal stenosis of s pine M99.89 ; Neck pain M54.2 ; Hypokalemia E87.6 ; Essential hypertension I10 and Mixed hyperlipidemia E78.2 [place] [address] [address] May, [facility] [address] [address] 08 May, 2015 High risk sexual behavior Z7 2.51 ; STD exposure Z20.2 and Concern about STD in female without diagnosis Z71.1 [place] [address] [address] 05 May, 2015 [place] [address] [address] [place] [id number] [address] [place] [address] Apr, Neuroforaminal stenosis of s jose M99.89 ; Mixed hyperlipidemia E78.2 ; Essential hypertension I10 and Hypokalemia E87.6 [place] [address] [place] [id number] [address] [place] [address] Mar, [place] [address] [address] Mar, Hypokalemia E87.6 [place] [address] [address] Mar, Neuroforaminal stenosis of s jose M99.89 ; Mixed hyperlipidemia E78.2 ; Neck pain M54.2 ; Essential hypertension I10 ; Abnormal fasting glucose R73.09 ; Hypokalemia E87.6 and Constipation K59.00 [place] [address] [address] Feb, Neuroforaminal stenosis of s jose M99.89 ; Mixed hyperlipidemia E78.2 ; Neck pain M54.2 ; Essential hypertension I10 ; Abnormal fasting glucose R73.09 ; Hypokalemia E87.6 and Constipation K59.00 [place] [id number] [place] [address] Feb, Elevated fasting blood sugar R73.01 [place] [address] [address] Feb, Elevated fasting blood sugar R73.01 [place] [address] [address] Feb, Hair loss L65.9 [place] [address] [place] [id number] [address] [place] [address] Feb, Sinusitis J32.9 ; Essential hypertension I10 and Hair loss L65.9 [facility] [address] [id number] [address] [place] [address] Jan, [facility] [address] [id number] [address] [place] [address] Jan, Essential hypertension I10 ; Neuroforaminal stenosis of spine M99.89 ; Neck pain M54.2 ; Mixed hyperlipidemia E78.2 and Anxiety F41.9 [place] [address] [id number] [address] [place] [address] Jan, [place] [address] [id number] [address] [place] [address] Jan, Mixed hyperlipidemia E78.2 ; Essential (primary) hypertension I10 ; Strain of muscle, fascia and tendon at neck level, subsequent encounter S16.1XXD and Tension-type headache, unspecified, not intractable G44.209 [place] [address] [id number] [address] [place] [address] Dec, Lumbar back pain 724.2 and N euroforaminal stenosis of spine 724.00 [place] [address] [id number] [address] [place] [address] Nov, [place] [address] [id number] [address] [place] [address] Nov, Lumbar back pain 724.2 and N euroforaminal stenosis of spine 724.00 [place] [address] [id number] [address] [place] [address] Nov, Edema 782.3 ; Lumbar back pa in 724.2 ; Essential hypertension, benign 401.1 ; Hyperlipemia 272.4 ; Neuroforaminal stenosis of spine 724.00 and Post-concussion headache 339.20 [place] [address] [id number] [address] [place] [address] Nov, [facility] [address] [id number] [address] [place] [address] Nov, [facility] [address] [id number] [address] [place] [address] Oct, Essential hypertension, sheridan gn 401.1 [facility] [address] [id number] [address] [place] [address] Oct, Edema 782.3 ; Lumbar back pa in 724.2 ; Essential hypertension, benign 401.1 ; Hyperlipemia 272.4 ; Neuroforaminal stenosis of spine 724.00 and Post-concussion headache 339.20 [facility] [address] [id number] [address] [place] [address] Oct, [facility] [address] [id number] [address] [place] [address] Oct, Edema 782.3 [facility] [address] [id number] [address] [place] [address] Oct, Lumbar back pain 724.2 [place] [address] [id number] [address] [place] [address] Oct, Cervicalgia 723.1 ; Lumbar b ack pain 724.2 and High risk medication use V58.69 [facility] [address] [id number] [address] [place] [address] Sep, [facility] [address] [id number] [address] [place] [address] Sep, Lumbar strain 847.2 [facility] [address] [id number] [address] [place] [address] August, Edema 782.3 and Eustachian t ube dysfunction 381.81 [facility] [address] [id number] [address] [place] [address] August, [facility] [address] [facility] [id number] [address] [place] [address] August, Eustachian tube dysfunction 381.81 [facility] [address] [id number] [address] [place] [address] Jul, Otalgia 388.70 and Otitis me jonathon 382.9 [facility] [address] [id number] [address] [place] [address] Jul, [facility] [address] [id number] [address] [place] [address] Jul, [facility] [address] [id number] [address] [place] [address] Jul, [facility] [address] [id number] [address] [place] [address] Jul, [facility] [address] [id number] [address] [place] [address] Jul, [facility] [address] [id number] [address] [place] [address] Jun, [facility] [address] [id number] [address] [place] [address] Jun, [facility] [address] [id number] [address] [place] [address] Jun, [facility] [address] [id number] [address] [place] [address] May, [facility] [address] [id number] [address] [place] [address] May, [facility] [address] [id number] [address] [place] [address] May, [facility] [address] [id number] [address] [place] [address] May, [facility] [address] [id number] [address] [place] [address] May, [facility] [address] [id number] [address] [place] [address] May, [facility] [address] [id number] [address] [place] [address], [place] [address] May, [facility] [address] [id number] [address] [place] [address], [place] [address] May, [facility] [address] [id number] [address] [place] [address], [place] [address] May, [facility] [address] [id number] [address] [place] [address], [place] [address] May, [facility] [address] [id number] [address] [place] [address], [place] [address] Apr, [facility] [address] [id number] [address] [place] [address], [place] [address] Apr, [facility] [address] [id number] [address] [place] [address], [place] [address] Apr, [facility] [address] [id number] [address] [place] [address], [place] [address] Apr, [facility] [address] [id number] [address] [place] [address], [place] [address] Apr, [facility] [address] [id number] [address] [place] [address], [place] [address] Apr, [facility] [address] [id number] [address] [place] [address], [place] [address] Apr, [facility] [address] [id number] [address] [place] [address], [place] [address] Apr, [facility] [address] [id number] [address] [place] [address], [place] [address] Apr, [facility] [address] [id number] [address] [place] [address], [place] [address] Apr, [facility] [address] [id number] [address] [place] [address], [place] [address] Apr, [facility] [address] [id number] [address] [place] [address], [place] [address] Apr, [facility] [address] [id number] [address] [place] [address], [place] [address] Apr, [facility] [address] [id number] [address] [place] [address], [place] [id number] Apr, [facility] [address] [id number] [address] [place] [address], [place] [address] Apr, [facility] [address] [id number] [address] [place] [address], [place] [address] Mar, [facility] [address] [id number] [address] [place] [address], [place] [address] Mar, [facility] [address] [id number] [address] [place] [address], [place] [address] Mar, [facility] [address] [id number] [address] [place] [address], [place] [address] Mar, [facility] [address] [id number] [address] [place] [address], [place] [address] Feb, [facility] [address] [id number] [address] [place] [address], [place] [address] Feb, [facility] [address] [id number] [address] [place] [address], [place] [address] Feb, [facility] [address] [id number] [address] [place] [address], [place] [address] Feb, [facility] [address] [id number] [address] [place] [address], [place] [address] Jan, [facility] [address] [id number] [address] [place] [address], [place] [address] Jan, [facility] [address] [id number] [address] [place] [address], [place] [address] Jan, [facility] [address] [id number] [address] [place] [address], [place] [address] Jan, [facility] [address] [id number] [address] [place] [address], [place] [address] Jan, [facility] [address] [id number] [address] [place] [address], [place] [address] Jan, [facility] [address] [id number] [address] [place] [address], [place] [address] Jan, [facility] [address] [id number] [address] [place] [address], [place] [address] Jan, [facility] [address] [id number] [address] [place] [address], [place] [address] Dec, [facility] [address] [id number] [address] [place] [address], [place] [address] Dec, [facility] [address] [id number] [address] [place] [address], [place] [address] Dec, [facility] [address] [id number] [address] [place] [address], [place] [address] Dec, [facility] [address] [id number] [address] [place] [address], [place] [address] Oct, [facility] [address] [id number] [address] [place] [address], [place] [address] Oct, [facility] [address] [id number] [address] [place] [address], [place] [address] Oct, [facility] [address] [id number] [address] [place] [address], [place] [address] Oct, [facility] [address] [id number] [address] [place] [address], [place] [address] Oct, [facility] [address] [id number] [address] [place] [address], [place] [address] Oct, [facility] [address] [id number] [address] [place] [address], [place] [address] Oct, [facility] [address] [id number] [facility] [place] [address] Oct, [facility] [address] [id number] [address] [place] [address], [place] [address] Sep, [facility] [address] [id number] [facility] [place] [address] Sep, [facility] [address] [id number] [address] [place] [address], [place] [address] Sep, [facility] [address] [id number] [address] [place] [address], [place] [address] Sep, [facility] [address] [id number] [address] [place] [address], [place] [address] Sep, [facility] [address] [id number] [address] [place] [address], [place] [address] Sep, [facility] [address] [id number] [address] [place] [address], [place] [address] Sep, [facility] [address] [id number] [address] [place] [address], [place] [address] Sep, [facility] [address] [id number] [address] [place] [address], [place] [address] Sep, [facility] [address] [id number] [address] [place] [address], [place] [address] Sep, [facility] [address] [id number] [address] [place] [address], [place] [address] August, [facility] [address] [id number] [address] [place] [address], [place] [address] August, [facility] [address] [id number] [address] [place] [address], [place] [address] August, [facility] [address] [id number] [address] [place] [address], [place] [address] August, [facility] [address] [id number] [address] [place] [address], [place] [address] August, [facility] [address] [id number] [address] [place] [address], [place] [address] August, [facility] [address] [id number] [address] [place] [address], [place] [address] August, [facility] [address] [id number] [address] [place] [address], [place] [address] August, [facility] [address] [id number] [address] [place] [address], [place] [address] August, [facility] [address] [id number] [address] [place] [address], [place] [address] August, [facility] [address] [id number] [address] [place] [address], [place] [address] August, [facility] [address] [id number] [address] [place] [address], [place] [address] August, [facility] [address] [id number] [address] [place] [address], [place] [address] Jul, [facility] [address] [id number] [address] [place] [address], [place] [address] Jul, [facility] [address] [id number] [address] [place] [address], [place] [address] Jul, [facility] [address] [id number] [address] [place] [address], [place] [address] Jul, [facility] [address] [id number] [address] [place] [address], [place] [address] Jul, [facility] [address] [id number] [address] [place] [address], [place] [address] Jul, [facility] [address] [id number] [address] [place] [address], [place] [address] Jun, [facility] [address] [id number] [address] [place] [address], [place] [address] Jun, [facility] [address] [id number] [address] [place] [address] 10 May, 2013 [facility] [address] [id number] [address] [place] [address], [place] [address] May, [facility] [address] [id number] [address] [place] [address], [place] [address] Apr, [facility] [address] [id number] [address] [place] [address], [place] [address] Apr, [facility] [address] [id number] [address] [place] [address], [place] [address] Apr, [facility] [address] [id number] [address] [place] [address], [place] [address] Apr, [facility] [address] [id number] [address] [place] [address], [place] [address] Apr, [facility] [address] [id number] [address] [place] [address], [place] [address] Apr, [facility] [address] [id number] [address] [place] [address], [place] [address] Apr, [facility] [address] [id number] [address] [place] [address], [place] [id number] Apr, [facility] [address] [id number] [address] [place] [address], [place] [id number] Apr, [facility] [address] [id number] [address] [place] [address], [place] [id number] Apr, [facility] [address] [id number] [address] [place] [address], [place] [address] Apr, [facility] [address] [id number] [address] [place] [address], [place] [id number] Apr, [facility] [address] [id number] [address] [place] [address], [place] [id number] Apr, [facility] [address] [id number] [address] [place] [address], [place] [id number] Mar, [facility] [address] [id number] [address] [place] [address], [place] [id number] Mar, [facility] [address] [id number] [address] [place] [address], [place] [id number] Mar, [facility] [address] [id number] [address] [place] [address], [place] [id number] Mar, [facility] [address] [id number] [address] [place] [address], [place] [id number] Feb, [facility] [address] [id number] [address] [place] [address], [place] [id number] Feb, [facility] [address] [id number] [address] [place] [address], [place] [id number] Feb, [facility] [address] [id number] [address] [place] [address], [place] [id number] Feb, [facility] [address] [id number] [address] [place] [address], [place] [id number] Jan, [facility] [address] [id number] [address] [place] [address], [place] [id number] Jan, [facility] [address] [id number] [address] [place] [address], [place] [id number] Jan, [facility] [address] [id number] [address] [place] [address], [place] [id number] Jan, [facility] [address] [id number] [address] [place] [address], [place] [id number] Jan, [facility] [address] [id number] [address] [place] [address], [place] [id number] Jan, [facility] [address] [id number] [address] [place] [address], [place] [id number] Jan, [facility] [address] [id number] [address] [place] [id number] Jan, [facility] [address] [id number] [address] [place] [id number] Jan, [facility] [address] [id number] [address] [place] [address], [place] [id number] 26 Dec, 2012 [facility] [address] [id number] [address] [place] [address], [place] [id number] 16 Dec, 2012 [facility] [address] [id number] [address] [place] [address], [place] [id number] 16 Dec, 2012 [facility] [address] [id number] [address] [place] [address], [place] [id number] 13 Dec, 2012 [facility] [address] [id number] [address] [place] [address], [place] [id number] Nov, [facility] [address] [id number] [address] [place] [address], [place] [id number] Nov, [facility] [address] [id number] [address] [place] [address], [place] [id number] Nov, [facility] [address] [id number] [address] [place] [address], [place] [address] Nov, [facility] [address] [id number] [address] [place] [address], [place] [id number] Oct, [facility] [address] [id number] [address] [place] [address], [place] [id number] Sep, [facility] [address] [id number] [address] [place] [address], [place] [id number] August, [facility] [address] [id number] [address] [place] [address], [place] [id number] August, [facility] [address] [id number] [address] [place] [address], [place] [id number] August, [facility] [address] [id number] [address] [place] [address], [place] [id number] August, [facility] [address] [id number] [address] [place] [address], [place] [id number] August, [facility] [address] [id number] [address] [place] [address], [place] [address] 14 Aug, 2012 [facility] [address] [id number] [address] [place] [address], [place] [id number] August, [facility] [address] [id number] [address] [place] [address], [place] [address] August, [facility] [address] [id number] [address] [place] [address], [place] [id number] August, [facility] [address] [id number] [address] [place] [address], [place] [id number] August, [facility] [address] [id number] [address] [place] [address], [place] [id number] August, [facility] [address] [id number] [address] [place] [address], [place] [id number] August, [facility] [address] [id number] [address] [place] [address], [place] [id number] Jul, [facility] [address] [id number] [address] [place] [address], [place] [id number] Jul, [facility] [address] [id number] [address] [place] [address], [place] [id number] 18 Jul, 2012 [facility] [address] [id number] [address] [place] [address], [place] [id number] 15 Jul, 2012 [facility] [address] [id number] [address] [place] [address], [place] [id number] Jul, [facility] [address] [id number] [address] [place] [address], [place] [id number] Jul, [facility] [address] [id number] [address] [place] [address], [place] [id number] 04 Jul, 2012 [facility] [address] [id number] [address] [place] [address], [place] [address] Jul, [facility] [address] [id number] [address] [place] [address], [place] [address] Jul, [facility] [address] [id number] [address] [place] [address], [place] [id number] Jul, [facility] [address] [id number] [address] [place] [address], [place] [address] Jul, [facility] [address] [id number] [address] [place] [address], [place] [address] Jun, [facility] [address] [id number] [address] [place] [address], [place] [address] Jun, [facility] [address] [id number] [address] [place] [address], [place] [id number] Jun, [facility] [address] [id number] [address] [place] [address], [place] [address] Jun, [facility] [address] [id number] [address] [place] [address], [place] [address] May, [facility] [address] [id number] [address] [place] [address], [place] [id number] 14 May, 2012 [facility] [address] [id number] [address] [place] [address], [place] [address] May, [facility] [address] [id number] [address] [place] [address], [place] [id number] May, [facility] [address] [id number] [address] [place] [address], [place] [address] May, [facility] [address] [id number] [address] [place] [address], [place] [address] May, [facility] [address] [id number] [address] [place] [address], [place] [id number] Apr, [facility] [address] [id number] [address] [place] [address], [place] [address] Apr, [facility] [address] [id number] [address] [place] [address], [place] [id number] Apr, [facility] [address] [id number] [address] [place] [address], [place] [id number] 28 Apr, 2012 [facility] [address] [id number] [address] [place] [address], [place] [id number] 15 Mar, 2012 [facility] [address] [id number] [address] [place] [address], [place] [id number] 14 Mar, 2012 [facility] [address] [id number] [address] [place] [address], [place] [id number] 14 Mar, 2012 [facility] [address] [id number] [address] [place] [address], [place] [id number] 14 Mar, 2012 [facility] [address] [id number] [address] [place] [address], [place] [id number] 14 Mar, 2012 [facility] [address] [id number] [address] [place] [address], [place] [id number] 06 Mar, 2012 [facility] [address] [id number] [address] [place] [address], [place] [id number] Mar, [facility] [address] [id number] [address] [place] [address], [place] [id number] Feb, [facility] [address] [id number] [address] [place] [address], [place] [address] Feb, [facility] [address] [id number] [address] [place] [address], [place] [id number] Feb, [facility] [address] [id number] [address] [place] [address], [place] [id number] Feb, [facility] [address] [id number] [address] [place] [address], [place] [address] Jan, [facility] [address] [id number] [address] [place] [address], [place] [id number] Jan, [facility] [address] [id number] [address] [place] [address], [place] [id number] Jan, [facility] [address] [id number] [address] [place] [address], [place] [id number] 10 Jan, 2012 [facility] [address] [id number] [address] [place] [address], [place] [id number] Jan, [facility] [address] [id number] [address] [place] [address], [place] [id number] Jan, [facility] [address] [id number] [address] [place] [address], [place] [address] Dec, [facility] [address] [id number] [address] [place] [address], [place] [id number] Dec, [facility] [address] [id number] [address] [place] [address], [place] [address] Nov, [facility] [address] [id number] [address] [place] [address], [place] [id number] Sep, [facility] [address] [id number] [address] [place] [address], [place] [address] August, [facility] [address] [id number] [address] [place] [address], [place] [address] August, [facility] [address] [id number] [address] [place] [address], [place] [address] August, [facility] [address] [id number] [address] [place] [address], [place] [address] August, [facility] [address] [id number] [address] [place] [address], [place] [address] August, [facility] [address] [id number] [address] [place] [address], [place] [address] Jun, [facility] [address] [id number] [address] [place] [address], [place] [address] Jun, [facility] [address] [id number] [address] [place] [address], [place] [id number] Apr, [facility] [address] [id number] [address] [place] [address], [place] [id number] Apr, [facility] [address] [id number] [address] [address] Mar, [facility] [address] [id number] [address] [place] [id number] Feb, [facility] [address] [id number] [address] [place] [id number] 14 Feb, 2011 [facility] [address] [id number] [address] [place] [id number] 14 Feb, 2011 [facility] [address] [id number] [address] [place] [id number] 17 Jan, 2011 [facility] [address] [id number] [address] [place] [id number] 15 Jan, 2011 [facility] [address] [id number] [address] [place] [id number] 15 Jan, 2011 [facility] [address] [id number] [address] [place] [id number] 14 Jan, 2011 [facility] [address] [id number] [address] [place] [id number] 15 May, 2010 [facility] [address] [id number] [address] [place] [id number] Mar, [facility] [address] [id number] [address] [place] [id number] Oct, [facility] [address] [id number] [address] [place] [id number] Sep, [facility] [address] [id number] [address] [place] [id number] Mar, [facility] [address] [id number] [address] [place] [id number] Jan, [facility] [address] [id number] [address] [place] [id number] Jan, [facility] [address] [id number] [address] [place] [id number] May, IMMUNIZATIONS No Known Immunizations SOCIAL HISTORY [...]
--- OUTSIDE RECORDS SUMMARY | 2019-11-23 05:55 | XMS REPORT ---
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 Name Role Phone Migration, Doctor Unavailable Unavailable PROBLEMS Type Condition ICD9-CM Code [id number] Code Onset Dates Condition S tatus SNOMED Code Problem Hematuria, unspecified type R31.9 Ac tive 20049772 Problem Abnormal renal ultrasound R93.429 Acti ve [id number] Problem Anxiety F41.9 Active 02862278 Problem Hypokalemia E87.6 Active 59759550 Problem Abnormal glucose R73.09 Active 102 942628 Problem Chronic pain due to trauma G89.21 Act juanis [id number] Problem Neuroforaminal stenosis of spine M99.89 Active [id number] Problem Neck pain M54.2 Active 86450455 Problem Essential hypertension I10 Active 87140474 Problem Mixed hyperlipidemia E78.2 Active 41454565 ALLERGIES No Information ENCOUNTERS Encounter Location Date Diagnosis [facility] [address] [facility] [id number] [address] [place] [address] Dec, Neuroforaminal stenosis of s pine M99.89 [facility] [address] [facility] [id number] [address] [place] [address] Nov, [facility] [address] [facility] [id number] [address] [place] [address] Nov, Neuroforaminal stenosis of s pine M99.89 [facility] [address] [facility] [id number] [address] [place] [address] Nov, Acute non-recurrent maxillar y sinusitis J01.00 [facility] [address] [facility] [id number] [address] [place] [address] Oct, Hypokalemia E87.6 [facility] [address] [facility] [id number] [address] [place] [address] Oct, Wasp sting, undetermined int ent, initial encounter T63.464A and Cellulitis of left lower extremity L03.116 [place] [address] [id number] [address] [place] [address] Oct, Neuroforaminal stenosis of s pine M99.89 [place] [address] [id number] [address] [place] [address] Sep, [place] [address] [id number] [address] [place] [address] Sep, [place] [address] [id number] [address] [place] [address] 18 Sep, 2018 Routine screening for STI (s exually transmitted infection) Z11.3 [place] [address] [id number] [address] [place] [address] 14 Sep, 2018 Routine screening for STI (s exually transmitted infection) Z11.3 ; Well woman exam with routine gynecological exam Z01.419 and Breast cancer screening Z12.39 [place] [address] [id number] [address] [place] [address] Sep, Neuroforaminal stenosis of s pine M99.89 [place] [address] [id number] [address] [place] [address] August, Neuroforaminal stenosis of s pine M99.89 [place] [address] [id number] [address] [place] [address] August, Neuroforaminal stenosis of s pine M99.89 ; Chronic pain due to trauma G89.21 and Mixed hyperlipidemia E78.2 [place] [address] [id number] [address] [place] [address] 16 Jul, 2018 Viral upper respiratory illn ess J06.9 and Acute non-recurrent frontal sinusitis J01.10 [place] [address] [id number] [address] [place] [id number] 15 Jul, 2018 Congestion of nasal sinus R0 9.81 [place] [address] [facility] [id number] [address] [place] [address] Jul, Neuroforaminal stenosis of s pine M99.89 and Essential hypertension I10 [facility] [address] [facility] [id number] [address] [place] [address] May, Neuroforaminal stenosis of s pine M99.89 [facility] [address] [id number] [address] [place] [address] May, [facility] [address] [facility] [id number] [address] [place] [address] May, Congestion of nasal sinus R0 9.81 [place] [address] [facility] [id number] [address] [place] [address] May, [place] [address] [facility] [id number] [address] [place] [address] Apr, Neuroforaminal stenosis of s pine M99.89 [place] [address] [facility] [id number] [address] [place] [address] Apr, Neuroforaminal stenosis of s pine M99.89 and Chronic pain due to trauma G89.21 [place] [address] [facility] [id number] [address] [place] [address] Mar, UTI (urinary tract infection ) N39.0 [place] [address] [facility] [id number] [address] [place] [address] Mar, Vertigo R42 [place] [address] [facility] [id number] [address] [place] [address] Mar, Neuroforaminal stenosis of s pine M99.89 [facility] [address] [facility] [id number] [address] [place] [address] Feb, Extensor tendon disruption M 67.89 [facility] [address] [facility] [id number] [address] [place] [address] Feb, Neuroforaminal stenosis of s pine M99.89 and High risk medication use Z79.899 [place] [address] [place] [id number] [address] [place] [address] Jan, Hypokalemia E87.6 [place] [address] [address] Jan, Flank pain R10.9 and Acute r ight-sided low back pain without sciatica M54.5 [place] [address] [address] Jan, Hypokalemia E87.6 [place] [address] [place] [id number] [place] [address] Jan, [place] [address] [address] Jan, URI, acute J06.9 [place] [address] [address] Jan, Neuroforaminal stenosis of s pine M99.89 [place] [address] [address] 13 Dec, 2017 Lateral epicondylitis, right elbow M77.11 [place] [address] [address] 11 Dec, 2017 Allergic rhinitis due to monica rosalina, unspecified seasonality J30.1 and Allergic conjunctivitis of both eyes H10.13 [place] [address] [address] 10 Dec, 2017 Neuroforaminal stenosis of s pine M99.89 [place] [address] [address] 06 Dec, 2017 Mixed hyperlipidemia E78.2 [place] [address] [place] [id number] [place] [address] 05 Dec, 2017 Abnormal glucose R73.09 ; Ab normal renal ultrasound R93.429 ; Dysuria R30.0 ; Cystitis without hematuria N30.90 ; Hypokalemia E87.6 ; Mixed hyperlipidemia E78.2 and Hematuria, unspecified type R31.9 [place] [address] [facility] [id number] [address] [place] [address] Nov, Hypokalemia E87.6 ; Mixed hy perlipidemia E78.2 and Hematuria, unspecified type R31.9 [place] [address] [place] [id number] [address] [place] [address] Nov, [place] [address] [facility] [id number] [address] [place] [address] Nov, Hypokalemia E87.6 [place] [address] [place] [id number] [place] [address] Nov, [place] [address] [place] [id number] [place] [address] Nov, Abnormal renal ultrasound R9 3.429 [place] [address] [place] [id number] [address] [place] [address] Nov, Abnormal renal ultrasound R9 3.429 [place] [address] [address] Nov, Hematuria, unspecified type R31.9 and Neuroforaminal stenosis of spine M99.89 [place] [address] [place] [id number] [address] [place] [address] Nov, Dysuria R30.0 [place] [address] [place] [id number] [address] [place] [address] Oct, Lateral epicondylitis, right elbow M77.11 [place] [address] [place] [id number] [address] [place] [address] Oct, Neuroforaminal stenosis of s pine M99.89 ; Visit for TB skin test Z11.1 and Essential hypertension I10 [place] [address] [place] [id number] [address] [place] [address] Oct, [place] [address] [id number] [address] [place] [address] 12 Oct, 2017 Neuroforaminal stenosis of s pine M99.89 [place] [address] [id number] [address] [place] [address] 10 Oct, 2017 Visit for TB skin test Z11.1 [place] [address] [id number] [address] [place] [address] 05 Oct, 2017 Cystitis without hematuria N 30.90 [place] [address] [id number] [address] [place] [address] 28 Sep, 2017 Screening breast examination Z12.39 [place] [address] [id number] [address] [place] [address] 26 Sep, 2017 Dysuria R30.0 and Cystitis w ithout hematuria N30.90 [place] [address] [id number] [address] [place] [address] 14 Sep, 2017 Essential hypertension I10 a nd Neuroforaminal stenosis of spine M99.89 [place] [address] [id number] [address] [place] [address] 04 Sep, 2017 Abnormal glucose R73.09 [place] [address] [facility] [id number] [address] [place] [address] August, Lateral epicondylitis, right elbow M77.11 [place] [address] [facility] [id number] [address] [place] [address] August, Screen for STD (sexually tra nsmitted disease) Z11.3 [place] [address] [id number] [address] [place] [address] August, Neuroforaminal stenosis of s pine M99.89 ; Mixed hyperlipidemia E78.2 ; Elevated fasting glucose R73.01 ; Screening mammogram, encounter for Z12.31 and Encounter for well woman exam without gynecological exam Z00.00 [place] [address] [id number] [address] [place] [address] August, Neuroforaminal stenosis of s jose M99.89 [facility] [address] [id number] [address] [place] [address] August, Essential hypertension I10 ; Hypokalemia E87.6 and Mixed hyperlipidemia E78.2 [facility] [address] [id number] [address] [place] [address] Jul, [facility] [address] [id number] [address] [place] [address] Jul, Neuroforaminal stenosis of s jose M99.89 [facility] [address] [id number] [address] [place] [address] Jul, Lateral epicondylitis, right elbow M77.11 [facility] [address] [id number] [address] [place] [address] Jul, [facility] [address] [id number] [address] [place] [address] Jun, High ankle sprain of right l ower extremity, initial encounter S93.431A [facility] [address] [id number] [address] [place] [address] Jun, Essential hypertension I10 [facility] [address] [id number] [address] [place] [address] Jun, [facility] [address] [id number] [address] [place] [address] Jun, [facility] [address] [id number] [address] [place] [address] Jun, Neuroforaminal stenosis of s jose M99.89 [facility] [address] [id number] [address] [place] [address] Jun, Pain of right upper extremit y M79.601 and Essential hypertension I10 [facility] [address] [id number] [address] [place] [address] Jun, [facility] [id number] [place] [address] Jun, Dysuria R30.0 ; Acute cystit is with hematuria N30.01 and Screen for STD (sexually transmitted disease) Z11.3 [place] [address] [place] [address] May, Chronic pain due to trauma G 89.21 [place] [address] [address] May, Essential hypertension I10 [address] [address] May, Neuroforaminal stenosis of s jose M99.[address] [address] Apr, Allergic reaction, initial e ncounter T78.40XA [address] [address] Apr, Low back pain, unspecified b ack pain laterality, unspecified chronicity, with sciatica presence unspecified M54.5 ; Acute cystitis with hematuria N30.01 ; Neuroforaminal stenosis of spine M99.89 ; Bilateral acute serous otitis media, recurrence not specified H65.03 ; Mixed hyperlipidemia E78.2 ; Essential hypertension I10 ; Immunization counseling Z71.89 and Encounter for immunization Z23 [address] [address] Apr, Neck pain M54.[address] [address] Mar, Neuroforaminal stenosis of s pine M99.89 [place] [address] [address] Mar, Pharyngitis due to other org anism J02.[address] [address] Feb, Neuroforaminal stenosis of s pine M99.89 [facility] [address] [id number] [address] [place] [address] Feb, UTI (urinary tract infection ) N39.0 [facility] [address] [id number] [address] [place] [address] Feb, Recent urinary tract infecti on Z87.440 ; Neuroforaminal stenosis of spine M99.89 ; Neck pain M54.2 ; Chronic pain due to trauma G89.21 and Recurrent UTI N39.0 [facility] [address] [id number] [address] [place] [address] Feb, [facility] [address] [id number] [address] [place] [address] Jan, Neuroforaminal stenosis of s pine M99.89 [facility] [address] [id number] [address] [place] [address] Dec, Neuroforaminal stenosis of s pine M99.89 [facility] [address] [id number] [address] [place] [address] Dec, Acute seasonal allergic rhin itis due to pollen J30.1 [facility] [address] [id number] [address] [place] [address] Dec, [facility] [address] [id number] [address] [place] [address] Dec, Acute seasonal allergic rhin itis, unspecified trigger J30.2 ; Allergic conjunctivitis of both eyes H10.13 and Dysfunction of both eustachian tubes H69.83 [facility] [address] [id number] [address] [place] [address] Dec, [facility] [address] [id number] [address] [place] [address] Dec, Nevus D22.9 [facility] [address] [id number] [address] [place] [address] Nov, Chronic pain due to trauma G 89.21 and Neuroforaminal stenosis of spine M99.89 [facility] [address] [id number] [address] [place] [address] Nov, Neuroforaminal stenosis of s pine M99.89 ; Essential hypertension I10 ; Mixed hyperlipidemia E78.2 ; Hypokalemia E87.6 ; Neck pain M54.2 and Nevus D22.9 [facility] [address] [id number] [address] [place] [address] Oct, Neuroforaminal stenosis of s pine M99.89 [facility] [address] [id number] [address] [place] [address] Sep, Neuroforaminal stenosis of s pine M99.89 [facility] [address] [id number] [address] [place] [address] Sep, [facility] [address] [id number] [address] [place] [address] August, [facility] [address] [id number] [address] [place] [address] August, Neck pain M54.2 and Neurofor aminal stenosis of spine M99.89 [facility] [address] [id number] [address] [place] [address] August, Routine gynecological examin ation Z01.419 and Screening breast examination Z12.39 [facility] [address] [id number] [address] [place] [address] Jul, [facility] [address] [id number] [address] [place] [address] Jul, [facility] [address] [id number] [address] [place] [address] Jul, Neuroforaminal stenosis of s pine M99.89 [facility] [address] [id number] [address] [place] [address] Jul, [facility] [address] [facility] [id number] [address] [place] [address] Jul, Neuroforaminal stenosis of l umbar 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 [facility] [address] [facility] [id number] [address] [place] [address] Jul, [facility] [address] [place] [id number] [address] [place] [address] Jul, [facility] [address] [facility] [id number] [address] [place] [address] Jun, Neuroforaminal stenosis of s jose M99.89 [place] [address] [place] [id number] [address] [place] [address] Jun, Uterine leiomyoma, unspecifi ed location D25.9 and Allergic reaction caused by a drug, initial encounter T78.40XA [place] [address] [place] [address] Jun, [place] [address] [facility] [id number] [address] [place] [address] May, UTI symptoms R39.9 and Pain of right sacroiliac joint M53.3 [place] [address] [place] [id number] [address] [place] [address] May, Neuroforaminal stenosis of s jose M99.89 [place] [address] [place] [address] May, [place] [address] [place] [id number] [address] [place] [address] May, Acute mucoid otitis media of left ear H65.112 and Acute non- recurrent maxillary sinusitis J01.00 [place] [address] [place] [id number] [address] [place] [address] May, Acute bacterial conjunctivit is of both eyes H10.33 ; Left arm pain M79.602 and Hypokalemia E87.6 [place] [address] [place] [id number] [address] [place] [address] Apr, [place] [address] [facility] [id number] [address] [place] [address] Apr, Neuroforaminal stenosis of s pine M99.89 ; Neck pain M54.2 ; Chronic pain due to trauma G89.21 ; Mixed hyperlipidemia E78.2 ; Essential hypertension I10 and Hypokalemia E87.6 [place] [address] [id number] [address] [place] [address] Mar, Oral candidiasis B37.0 ; Nathaniel roforaminal stenosis of spine M99.89 ; Neck pain M54.2 and Chronic pain due to trauma G89.21 [place] [address] [place] [id number] [address] [place] [address] Feb, [place] [address] [place] [id number] [address] [place] [address] Feb, [place] [address] [place] [id number] [address] [place] [address] Feb, UTI (urinary tract infection ) N39.0 [place] [address] [place] [id number] [address] [place] [address] Feb, Dysuria R30.0 [place] [address] [place] [id number] [address] [place] [address] Feb, Dysuria R30.0 [place] [address] [place] [id number] [address] [place] [address] 02 Feb, 2016 Neuroforaminal stenosis of s pine M99.89 ; Neck pain M54.2 ; Essential hypertension I10 ; Chronic pain due to trauma G89.21 ; Dysuria R30.0 ; Abnormal MRI, shoulder R93.8 and Acute cystitis without hematuria N30.00 [place] [address] [place] [id number] [address] [place] [address] Jan, [place] [address] [place] [id number] [address] [place] [address] Jan, [facility] [address] [id number] [address] [place] [address] Jan, [facility] [address] [id number] [address] [place] [address] Jan, Abnormal MRI R93.8 [facility] [address] [id number] [address] [place] [address] 29 Dec, 2015 [facility] [address] [id number] [address] [place] [address] 15 Dec, 2015 Acute pain of left shoulder M25.512 [facility] [address] [id number] [address] [place] [address] 09 Dec, 2015 [facility] [address] [id number] [address] [place] [address] 08 Dec, 2015 [facility] [address] [id number] [address] [place] [address] 07 Dec, 2015 Acute pain of left shoulder M25.512 [facility] [address] [id number] [address] [place] [address] Nov, [facility] [address] [id number] [address] [place] [address] 16 Nov, 2015 Neuroforaminal stenosis of s pine M99.89 ; Neck pain M54.2 ; Abnormal mammogram R92.8 ; Essential hypertension I10 and Chronic pain due to trauma G89.21 [facility] [address] [id number] [address] [place] [address] Nov, [facility] [address] [id number] [address] [place] [address] Oct, Acute stress disorder F43.0 [facility] [address] [id number] [address] [place] [address] Oct, [facility] [address] [id number] [address] [place] [address] 14 Oct, 2015 [facility] [address] [id number] [address] [place] [address] Oct, [facility] [address] [id number] [address] [place] [address] Sep, [facility] [address] [id number] [address] [place] [address] August, [facility] [address] [id number] [address] [place] [address] Jul, Neuroforaminal stenosis of s pine M99.89 ; Neck pain M54.2 ; Abnormal mammogram R92.8 and Essential hypertension I10 [facility] [address] [id number] [address] [place] [address] Jul, [facility] [address] [id number] [address] [place] [address] Jul, [facility] [address] [id number] [address] [place] [address] Jul, Abnormal mammogram R92.8 [facility] [address] [id number] [address] [place] [address] Jul, [facility] [address] [id number] [address] [place] [id number] Jul, UTI (urinary tract infection ) N39.0 [facility] [address] [id number] [address] [place] [id number] Jul, Dysuria R30.0 [facility] [address] [id number] [address] [place] [id number] Jun, [facility] [address] [id number] [address] [place] [id number] Jun, [facility] [address] [id number] [address] [place] [id number] Jun, Hypokalemia E87.6 and Hematu martina R31.9 [facility] [address] [id number] Jun, Hypokalemia E87.6 [place] [address] [id number] Jun, [place] [address] [address] Jun, Hypokalemia E87.6 [place] [address] [id number] Jun, Hypokalemia E87.6 [place] [address] [id number] Jun, Neuroforaminal stenosis of s pine M99.89 ; Hypokalemia E87.6 ; Neck pain M54.2 ; Essential hypertension I10 ; Mixed hyperlipidemia E78.2 and Screening breast examination Z12.39 [place] [address] [id number] Jun, Dysuria R30.0 ; UTI (urinary tract infection) N39.0 and Hematuria R31.9 [place] [address] [id number] May, [place] [address] [id number] May, High risk sexual behavior Z7 2.51 ; Hypokalemia E87.6 ; Neuroforaminal stenosis of spine M99.89 ; Neck pain M54.2 ; Essential hypertension I10 ; Mixed hyperlipidemia E78.2 ; STD exposure Z20.2 and Concern about STD in female without diagnosis Z71.[address] [id number] 16 May, 2015 Neuroforaminal stenosis of s pine M99.89 ; Neck pain M54.2 ; Hypokalemia E87.6 ; Essential hypertension I10 and Mixed hyperlipidemia E78.2 [place] [address] [id number] 11 May, 2015 [facility] [address] [id number] [address] [place] [address] 08 May, 2015 High risk sexual behavior Z7 2.51 ; STD exposure Z20.2 and Concern about STD in female without diagnosis Z71.1 [facility] [address] [id number] [address] [place] [address] May, [place] [address] [address] Apr, Neuroforaminal stenosis of s pine M99.89 ; Mixed hyperlipidemia E78.2 ; Essential hypertension I10 and Hypokalemia E87.6 [place] [address] [address] Mar, [place] [address] [address] Mar, Hypokalemia E87.6 [place] [address] [address] Mar, Neuroforaminal stenosis of s pine M99.89 ; Mixed hyperlipidemia E78.2 ; Neck pain M54.2 ; Essential hypertension I10 ; Abnormal fasting glucose R73.09 ; Hypokalemia E87.6 and Constipation K59.00 [place] [id number] [place] [address] Feb, Neuroforaminal stenosis of s pine M99.89 ; Mixed hyperlipidemia E78.2 ; Neck pain M54.2 ; Essential hypertension I10 ; Abnormal fasting glucose R73.09 ; Hypokalemia E87.6 and Constipation K59.00 [place] [address] [address] Feb, Elevated fasting blood sugar R73.01 [place] [address] [address] Feb, Elevated fasting blood sugar R73.01 [place] [address] [id number] [address] [place] [address] Feb, Hair loss L65.9 [place] [address] [facility] [id number] [address] [place] [address] Feb, Sinusitis J32.9 ; Essential hypertension I10 and Hair loss L65.9 [place] [address] [facility] [id number] [address] [place] [address] Jan, [place] [address] [facility] [id number] [address] [place] [address] Jan, Essential hypertension I10 ; Neuroforaminal stenosis of spine M99.89 ; Neck pain M54.2 ; Mixed hyperlipidemia E78.2 and Anxiety F41.9 [place] [address] [facility] [id number] [address] [place] [address] Jan, [place] [address] [place] [id number] [place] [address] Jan, Mixed hyperlipidemia E78.2 ; Essential (primary) hypertension I10 ; Strain of muscle, fascia and tendon at neck level, subsequent encounter S16.1XXD and Tension-type headache, unspecified, not intractable G44.209 [place] [address] [id number] [address] [place] [address] Dec, Lumbar back pain 724.2 and N euroforaminal stenosis of spine 724.00 [place] [address] [id number] [address] [place] [address] Nov, [place] [address] [id number] [address] [place] [address] Nov, Lumbar back pain 724.2 and N euroforaminal stenosis of spine 724.00 [place] [address] [facility] [id number] [address] [place] [address] Nov, Edema 782.3 ; Lumbar back pa in 724.2 ; Essential hypertension, benign 401.1 ; Hyperlipemia 272.4 ; Neuroforaminal stenosis of spine 724.00 and Post-concussion headache 339.20 [facility] [address] [id number] [address] [place] [address] Nov, [facility] [address] [id number] [address] [place] [address] Nov, [facility] [address] [id number] [address] [place] [address] Oct, Essential hypertension, sheridan gn 401.1 [facility] [address] [id number] [address] [place] [address] Oct, Edema 782.3 ; Lumbar back pa in 724.2 ; Essential hypertension, benign 401.1 ; Hyperlipemia 272.4 ; Neuroforaminal stenosis of spine 724.00 and Post-concussion headache 339.20 [facility] [address] [id number] [address] [place] [address] Oct, [facility] [address] [id number] [address] [place] [address] Oct, Edema 782.3 [facility] [address] [id number] [address] [place] [address] Oct, Lumbar back pain 724.2 [place] [address] [id number] [address] [place] [address] Oct, Cervicalgia 723.1 ; Lumbar b ack pain 724.2 and High risk medication use V58.69 [facility] [address] [id number] [address] [place] [address] Sep, [facility] [address] [id number] [address] [place] [address] Sep, Lumbar strain 847.2 [facility] [address] [id number] [address] [place] [address] August, Edema 782.3 and Eustachian t ube dysfunction 381.81 [place] [address] [id number] [address] [place] [address] August, [facility] [address] [id number] [address] [place] [address] August, Eustachian tube dysfunction 381.81 [facility] [address] [id number] [address] [place] [address] Jul, Otalgia 388.70 and Otitis me jonathon 382.9 [facility] [place] [address] [id number] [address] [place] [address] Jul, [facility] [address] [id number] [address] [place] [address] Jul, [facility] [address] [id number] [address] [place] [address] Jul, [facility] [address] [id number] [address] [place] [address] Jul, [facility] [address] [id number] [address] [place] [address] Jul, [facility] [address] [id number] [address] [place] [address] Jun, [facility] [address] [id number] [address] [place] [address] Jun, [facility] [address] [id number] [address] [place] [address] Jun, [facility] [address] [id number] [address] [place] [address] May, [facility] [address] [id number] [address] [place] [address] May, [facility] [address] [id number] [address] [place] [address] May, [facility] [address] [id number] [address] [place] [address] May, [facility] [address] [id number] [address] [place] [address], [place] [address] 17 May, 2014 [facility] [address] [id number] [address] [place] [address], [place] [address] May, 2014 [facility] [address] [id number] [address] [place] [address], [place] [address] May, 2014 [facility] [address] [id number] [address] [place] [address], [place] [address] May, 2014 [facility] [address] [id number] [address] [place] [address], [place] [address] May, 2014 [facility] [address] [id number] [address] [place] [address], [place] [address] May, [facility] [address] [id number] [address] [place] [address], [place] [address] Apr, [facility] [address] [id number] [address] [place] [address], [place] [address] Apr, [facility] [address] [id number] [address] [place] [address], [place] [address] Apr, [facility] [address] [id number] [address] [place] [address], [place] [address] Apr, [facility] [address] [id number] [address] [place] [address], [place] [address] Apr, [facility] [address] [id number] [address] [place] [address], [place] [address] Apr, [facility] [address] [id number] [address] [place] [address], [place] [address] Apr, [facility] [address] [id number] [address] [place] [address], [place] [address] Apr, [facility] [address] [id number] [address] [place] [address], [place] [address] Apr, [facility] [address] [id number] [address] [place] [address], [place] [address] Apr, [facility] [address] [id number] [address] [place] [address], [place] [address] Apr, [facility] [address] [id number] [address] [place] [address], [place] [address] Apr, [facility] [address] [id number] [address] [place] [address], [place] [address] Apr, [facility] [address] [id number] [address] [place] [address], [place] [address] Apr, [facility] [address] [id number] [address] [place] [address], [place] [address] Apr, [facility] [address] [id number] [address] [place] [address], [place] [address] Mar, [facility] [address] [id number] [address] [place] [address], [place] [address] Mar, [facility] [address] [id number] [address] [place] [address], [place] [address] Mar, [facility] [address] [id number] [address] [place] [address], [place] [address] Mar, [facility] [address] [id number] [address] [place] [address], [place] [address] Feb, [facility] [address] [id number] [address] [place] [address] Feb, [facility] [address] [id number] [address] [place] [address] Feb, [facility] [address] [id number] [address] [place] [address], [place] [address] Feb, [facility] [address] [id number] [address] [place] [address], [place] [address] Jan, [facility] [address] [id number] [address] [place] [address] Jan, [facility] [address] [id number] [address] [place] [address], [place] [address] Jan, [facility] [address] [id number] [address] [place] [address], [place] [address] Jan, [facility] [address] [id number] [address] [place] [address], [place] [address] Jan, [facility] [address] [id number] [address] [place] [address], [place] [address] Jan, [facility] [address] [id number] [address] [place] [address], [place] [address] Jan, [facility] [address] [id number] [address] [place] [address], [place] [address] Jan, [facility] [address] [id number] [address] [place] [address], [place] [address] Dec, [facility] [address] [id number] [address] [place] [address], [place] [address] Dec, [facility] [address] [id number] [address] [place] [address], [place] [address] Dec, [facility] [address] [id number] [address] [place] [address], [place] [address] Dec, [facility] [address] [id number] [address] [place] [address], [place] [address] Oct, [facility] [address] [id number] [address] [place] [address], [place] [address] Oct, [facility] [address] [id number] [address] [place] [address], [place] [address] Oct, [facility] [address] [id number] [address] [place] [address], [place] [address] Oct, [facility] [address] [id number] [address] [place] [address], [place] [address] Oct, [facility] [address] [id number] [address] [place] [address], [place] [address] Oct, [facility] [address] [id number] [address] [place] [address], [place] [address] Oct, [facility] [address] [id number] [address] [place] [address], [place] [address] Oct, [facility] [address] [id number] [address] [place] [address], [place] [address] Sep, [facility] [address] [id number] [address] [place] [address], [place] [address] Sep, [facility] [address] [id number] [address] [place] [address], [place] [address] Sep, [facility] [address] [id number] [address] [place] [address], [place] [address] Sep, [facility] [address] [id number] [address] [place] [address], [place] [address] Sep, [facility] [address] [id number] [address] [place] [address], [place] [address] Sep, [facility] [address] [id number] [address] [place] [address], [place] [address] Sep, [facility] [address] [id number] [address] [place] [address], [place] [address] Sep, [facility] [address] [id number] [address] [place] [address], [place] [address] Sep, [facility] [address] [id number] [address] [place] [address], [place] [address] Sep, [facility] [address] [id number] [address] [place] [address], [place] [address] August, [facility] [address] [id number] [address] [place] [address], [place] [address] August, [facility] [address] [id number] [address] [place] [address], [place] [address] August, [facility] [address] [id number] [address] [place] [address], [place] [address] August, [facility] [address] [id number] [address] [place] [address], [place] [address] August, [facility] [address] [id number] [address] [place] [address], [place] [address] August, [facility] [address] [id number] [address] [place] [address], [place] [address] August, [facility] [address] [id number] [address] [place] [address], [place] [address] August, [facility] [address] [id number] [address] [place] [address], [place] [address] August, [facility] [address] [id number] [address] [place] [address], [place] [address] August, [facility] [address] [id number] [address] [place] [address], [place] [address] August, [facility] [address] [id number] [address] [place] [address], [place] [address] August, [facility] [address] [id number] [address] [place] [address], [place] [address] Jul, [facility] [address] [id number] [address] [place] [address], [place] [address] Jul, [facility] [address] [id number] [address] [place] [address], [place] [address] Jul, [facility] [address] [id number] [address] [place] [address], [place] [address] Jul, [facility] [address] [id number] [address] [place] [address], [place] [address] Jul, [facility] [address] [id number] [address] [place] [address], [place] [address] Jul, [facility] [address] [id number] [address] [place] [address], [place] [address] Jun, [facility] [address] [id number] [address] [place] [address], [place] [address] Jun, [facility] [address] [id number] [address] [place] [address], [place] [address] May, [facility] [address] [id number] [address] [place] [address], [place] [address] May, [facility] [address] [id number] [address] [place] [address], [place] [address] Apr, [facility] [address] [id number] [address] [place] [address], [place] [address] Apr, [facility] [address] [id number] [address] [place] [address], [place] [address] Apr, [facility] [address] [id number] [address] [place] [address], [place] [address] Apr, [facility] [address] [id number] [address] [place] [address], [place] [address] Apr, [facility] [address] [id number] [address] [place] [address], [place] [address] Apr, [facility] [address] [id number] [address] [place] [address], [place] [address] Apr, [facility] [address] [id number] [address] [place] [address], [place] [address] Apr, [facility] [address] [id number] [address] [place] [address], [place] [address] Apr, [facility] [address] [id number] [address] [place] [address], [place] [address] Apr, [facility] [address] [id number] [address] [place] [address], [place] [address] Apr, [facility] [address] [id number] [address] [place] [address], [place] [address] Apr, [facility] [address] [id number] [address] [place] [address], [place] [address] Apr, [facility] [address] [id number] [address] [place] [address], [place] [address] Mar, [facility] [address] [id number] [address] [place] [address], [place] [address] Mar, [facility] [address] [id number] [address] [place] [address], [place] [address] Mar, [facility] [address] [id number] [address] [place] [address], [place] [address] Mar, [facility] [address] [id number] [address] [place] [address], [place] [address] Feb, [facility] [address] [id number] [address] [place] [address], [place] [address] Feb, [facility] [address] [id number] [address] [place] [address], [place] [address] Feb, [facility] [address] [id number] [address] [place] [address] Feb, [facility] [address] [id number] [address] [place] [address], [place] [address] 14 Jan, 2013 [facility] [address] [id number] [address] [place] [id number] 14 Jan, 2013 [facility] [address] [id number] [address] [place] [address] Jan, [facility] [address] [id number] [address] [place] [address] 11 Jan, 2013 [facility] [address] [id number] [address] [place] [address], [place] [address] 10 Jan, 2013 [facility] [address] [id number] [address] [place] [id number] 10 Jan, 2013 [facility] [address] [id number] [address] [place] [id number] 09 Jan, 2013 [facility] [address] [id number] [address] [place] [address], [place] [address] Jan, [facility] [address] [id number] [address] [place] [address], [place] [address] Jan, [facility] [address] [id number] [address] [place] [address], [place] [address] 26 Dec, 2012 [facility] [address] [id number] [address] [place] [address], [place] [address] 16 Dec, 2012 [facility] [address] [id number] [address] [place] [address], [place] [address] 16 Dec, 2012 [facility] [address] [id number] [address] [place] [address], [place] [address] Dec, [facility] [address] [id number] [address] [place] [address], [place] [address] Nov, [facility] [address] [id number] [address] [place] [address], [place] [address] Nov, [facility] [address] [id number] [address] [place] [address], [place] [address] Nov, [facility] [address] [id number] [address] [place] [address], [place] [address] Nov, [facility] [address] [id number] [address] [place] [address], [place] [address] Oct, [facility] [address] [id number] [address] [place] [address], [place] [address] Sep, [facility] [address] [id number] [address] [place] [address], [place] [address] August, [facility] [address] [id number] [address] [place] [address], [place] [address] August, [facility] [address] [id number] [address] [place] [address], [place] [address] August, [facility] [address] [id number] [address] [place] [address], [place] [address] August, [facility] [address] [id number] [address] [place] [address], [place] [address] August, [facility] [address] [id number] [address] [place] [address], [place] [address] August, [facility] [address] [id number] [address] [place] [address], [place] [address] August, [facility] [address] [id number] [address] [place] [address], [place] [address] August, [facility] [address] [id number] [address] [place] [address], [place] [address] August, [facility] [address] [id number] [address] [place] [address], [place] [address] August, [facility] [address] [id number] [address] [place] [address], [place] [address] August, [facility] [address] [id number] [address] [place] [address], [place] [address] August, [facility] [address] [id number] [address] [place] [address], [place] [address] Jul, [facility] [address] [id number] [address] [place] [address], [place] [address] Jul, [facility] [address] [id number] [address] [place] [address], [place] [address] Jul, [facility] [address] [id number] [address] [place] [address], [place] [address] Jul, [facility] [address] [id number] [address] [place] [address], [place] [address] Jul, [facility] [address] [id number] [address] [place] [address], [place] [address] Jul, [facility] [address] [id number] [address] [place] [address], [place] [address] 04 Jul, 2012 [facility] [address] [id number] [address] [place] [id number] Jul, [facility] [address] [id number] [address] [place] [address], [place] [address] Jul, [facility] [address] [id number] [address] [place] [address], [place] [address] Jul, [facility] [address] [id number] [address] [place] [address], [place] [address] Jul, [facility] [address] [id number] [address] [place] [address], [place] [address] Jun, [facility] [address] [id number] [address] [place] [address], [place] [address] Jun, [facility] [address] [id number] [address] [place] [address], [place] [address] Jun, [facility] [address] [id number] [address] [place], [place] [address], [place] [address] Jun, [facility] [address] [id number] [address] [place] [address], [place] [address] May, [facility] [address] [id number] [address] [place] [address], [place] [address] May, [facility] [address] [id number] [address] [place] [address], [place] [address] May, [facility] [address] [id number] [address] [place] [address], [place] [address] May, [facility] [address] [id number] [address] [place] [address] May, [facility] [address] [id number] [address] [place] [address], [place] [address] May, [facility] [address] [id number] [address] [place] [address] Apr, [facility] [address] [id number] [address] [place] [address] Apr, [facility] [address] [id number] [address] [place] [address], [place] [address] 30 Apr, 2012 [facility] [address] [id number] [address] [place] [address], [place] [address] Apr, [facility] [address] [id number] [address] [place] [address], [place] [address] 15 Mar, 2012 [facility] [address] [id number] [address] [place] [address], [place] [address] 14 Mar, 2012 [facility] [address] [id number] [address] [place] [address], [place] [address] 14 Mar, 2012 [facility] [address] [id number] [address] [place] [address], [place] [address] Mar, [facility] [address] [id number] [address] [place] [address], [place] [address] Mar, [facility] [address] [id number] [address] [place] [address], [place] [address] Mar, [facility] [address] [id number] [address] [place] [address], [place] [address] Mar, [facility] [address] [id number] [address] [place] [address], [place] [address] Feb, [facility] [address] [id number] [address] [place] [address], [place] [address] Feb, [facility] [address] [id number] [address] [place] [address], [place] [address] Feb, [facility] [address] [id number] [address] [place] [address], [place] [address] Feb, [facility] [address] [id number] [address] [place] [address], [place] [address] Jan, [facility] [address] [id number] [address] [place] [address], [place] [address] Jan, [facility] [address] [id number] [address] [place] [address], [place] [address] Jan, [facility] [address] [id number] [address] [place] [address], [place] [address] Jan, [facility] [address] [id number] [address] [place] [address], [place] [address] Jan, [facility] [address] [id number] [address] [place] [address], [place] [address] Jan, [facility] [address] [id number] [address] [place] [address], [place] [address] Dec, [facility] [address] [id number] [address] [place] [address], [place] [address] Dec, [facility] [address] [id number] [address] [place] [address], [place] [address] Nov, [facility] [address] [id number] [address] [place] [address], [place] [address] Sep, [facility] [address] [id number] [address] [place] [address], [place] [address] August, [facility] [address] [id number] [address] [place] [address], [place] [address] August, [facility] [address] [id number] [address] [place] [address], [place] [address] August, [facility] [address] [id number] [address] [place] [address], [place] [address] August, [facility] [address] [id number] [address] [place] [address], [place] [address] August, [facility] [address] [id number] [address] [place] [address], [place] [address] Jun, [facility] [address] [id number] [address] [place] [address], [place] [address] Jun, [facility] [address] [id number] [address] [place] [address], [place] [address] Apr, [facility] [address] [id number] [address] [place] [address], [place] [address] 20 Apr, 2011 [facility] [address] [id number] [address] [place] [address], [place] [address] 23 Mar, 2011 [facility] [address] [id number] [address] [place] [address], [place] [address] Feb, [facility] [address] [id number] [address] [place] [address], [place] [address] 14 Feb, 2011 [facility] [address] [id number] [address] [place] [address], [place] [address] 14 Feb, 2011 [facility] [address] [id number] [address] [place] [address], [place] [address] 17 Jan, 2011 [facility] [address] [id number] [address] [place] [address], [place] [address] 15 Jan, 2011 [facility] [address] [id number] [address] [place] [address], [place] [address] 15 Jan, 2011 [facility] [address] [id number] [address] [place] [address], [place] [address] 14 Jan, 2011 [facility] [address] [id number] [address] [place] [address], [place] [address] 15 May, 2010 [facility] [address] [id number] [address] [place] [address], [place] [address] 04 Mar, 2010 [facility] [address] [id number] [address] [place] [address], [place] [address] Oct, [facility] [address] [id number] [address] [place] [address], [place] [address] Sep, [facility] [address] [id number] [address] [place] [address], [place] [address] Mar, [facility] [address] [id number] [address] [place] [address], [place] [address] Jan, [facility] [address] [id number] [address] [place] [address], [place] [address] Jan, [facility] [address] [facility] [id number] [address] [place] [address] May, IMMUNIZATIONS No Known Immunizations SOCIAL HISTORY [...] squamous atypia (no definite dyplasia). Performed at [facility] Dr. Joy. Medical History Acute [...]
--- OUTSIDE RECORDS SUMMARY | 2019-11-23 05:56 | XMS REPORT ---
Author Author Liana Coe Doctor Organization [facility] Address Unknown Phone Unavailable Care Team Providers Care Planning Associate Name Role Phone Migration, Doctor Unavailable Unavailable PROBLEMS Type Condition ICD9-CM Code NUD46-PZ Code Onset Dates Condition S tatus SNOMED Code Problem Hematuria, unspecified type R31.9 Ac tive 52666817 Problem Abnormal renal ultrasound R93.429 Acti ve [id number] Problem Anxiety F41.9 Active 44581438 Problem Hypokalemia E87.6 Active 32411767 Problem Abnormal glucose R73.09 Active 102 464297 Problem Chronic pain due to trauma G89.21 Act juanis 814341422 Problem Neuroforaminal stenosis of spine M99.89 Active [id number] Problem Neck pain M54.2 Active 28823031 Problem Essential hypertension I10 Active 92857872 Problem Mixed hyperlipidemia E78.2 Active 19708731 ALLERGIES No Information ENCOUNTERS Encounter Location Date Diagnosis [place] [address] [address] Nov, Neuroforaminal stenosis of s pine M99.89 [facility] [address] [place] [id number] [address] [place] [id number] Nov, Acute non-recurrent maxillar y sinusitis J01.00 [facility] [address] [place] [id number] [address] [place] [phone] Oct, Hypokalemia E87.6 [facility] [address] [facility] [id number] [address] [place] [phone] Oct, Wasp sting, undetermined int ent, initial encounter T63.464A and Cellulitis of left lower extremity L03.116 [facility] [address] [place] [id number] [address] [place] [phone] Oct, Neuroforaminal stenosis of s pine M99.89 [facility] [address] [facility] [id number] [address] [place] [phone] Sep, [place] [address] [facility] [id number] [address] [place] [phone] Sep, [facility] [address] [facility] [id number] [address] [place] [id number] 18 Sep, 2018 Routine screening for STI (s exually transmitted infection) Z11.3 [place] [address] [facility] [id number] [address] [place] [id number] 14 Sep, 2018 Routine screening for STI (s exually transmitted infection) Z11.3 ; Well woman exam with routine gynecological exam Z01.419 and Breast cancer screening Z12.39 [place] [address] [address] [facility] [id number] [address] [place] [phone] 10 Sep, 2018 Neuroforaminal stenosis of s pine M99.89 [place] [address] [facility] [id number] [address] [place] [phone] August, Neuroforaminal stenosis of s pine M99.89 [place] [address] [facility] [id number] [address] [place] [phone] August, Neuroforaminal stenosis of s pine M99.89 ; Chronic pain due to trauma G89.21 and Mixed hyperlipidemia E78.2 [place] [address] [facility] [id number] [address] [place] [phone] Jul, Viral upper respiratory illn ess J06.9 and Acute non-recurrent frontal sinusitis J01.10 [place] [address] [address] [facility] [id number] [address] [place] [phone] Jul, Congestion of nasal sinus R0 9.81 [place] [address] [facility] [id number] [address] [place] [phone] Jul, Neuroforaminal stenosis of s pine M99.89 and Essential hypertension I10 [place] [address] [address] [facility] [id number] [address] [place] [phone] May, Neuroforaminal stenosis of s pine M99.89 [facility] [address] [id number] [address] [place] [phone] May, [facility] [address] [id number] [address] [place] [phone] May, Congestion of nasal sinus R0 9.81 [facility] [address] [id number] [address] [place] [phone] May, [facility] [address] [id number] [address] [place] [phone] Apr, Neuroforaminal stenosis of s pine M99.89 [facility] [address] [id number] [address] [place] [id number] Apr, Neuroforaminal stenosis of s pine M99.89 and Chronic pain due to trauma G89.21 [facility] [address] [facility] [id number] [address] [place] [id number] Mar, UTI (urinary tract infection ) N39.0 [facility] [address] [facility] [id number] [address] [place] [id number] Mar, Vertigo R42 [facility] [address] [facility] [id number] [address] [place] [id number] Mar, Neuroforaminal stenosis of s pine M99.89 [facility] [address] [facility] [id number] [address] [place] [phone] Feb, Extensor tendon disruption M 67.89 [facility] [address] [id number] [address] [place] [phone] Feb, Neuroforaminal stenosis of s pine M99.89 and High risk medication use Z79.899 [facility] [address] [facility] [id number] [address] [place] [phone] Jan, Hypokalemia E87.6 [facility] [address] [facility] [id number] [address] [place] [phone] Jan, Flank pain R10.9 and Acute r ight-sided low back pain without sciatica M54.5 [place] [address] [phone] Jan, Hypokalemia E87.6 [place] [address] [place] [id number] [place] [phone] Jan, [place] [address] [address] Jan, URI, acute J06.9 [place] [address] [address] Jan, Neuroforaminal stenosis of s pine M99.89 [place] [address] [address] 13 Dec, 2017 Lateral epicondylitis, right elbow M77.11 [place] [address] [address] 11 Dec, 2017 Allergic rhinitis due to monica rosalina, unspecified seasonality J30.1 and Allergic conjunctivitis of both eyes H10.13 [place] [address] [address] 10 Dec, 2017 Neuroforaminal stenosis of s pine M99.89 [place] [address] [address] Dec, Mixed hyperlipidemia E78.2 [place] [address] [address] 05 Dec, 2017 Abnormal glucose R73.09 ; Ab normal renal ultrasound R93.429 ; Dysuria R30.0 ; Cystitis without hematuria N30.90 ; Hypokalemia E87.6 ; Mixed hyperlipidemia E78.2 and Hematuria, unspecified type R31.9 [place] [address] [place] [id number] [address] [place] [phone] Nov, Hypokalemia E87.6 ; Mixed hy perlipidemia E78.2 and Hematuria, unspecified type R31.9 [facility] [address] [id number] [address] [place] [phone] Nov, [facility] [address] [id number] [address] [place] [phone] Nov, Hypokalemia E87.6 [facility] [address] [id number] [address] [place] [phone] Nov, [facility] [address] [id number] [address] [place] [phone] Nov, Abnormal renal ultrasound R9 3.429 [place] [address] [id number] [address] [place] [phone] Nov, Abnormal renal ultrasound R9 3.429 [place] [address] [id number] [address] [place] [phone] Nov, Hematuria, unspecified type R31.9 and Neuroforaminal stenosis of spine M99.89 [place] [address] [id number] [address] [place] [id number] Nov, Dysuria R30.0 [place] [address] [id number] [address] [place] [phone] Oct, Lateral epicondylitis, right elbow M77.11 [place] [address] [id number] [address] [place] [phone] Oct, Neuroforaminal stenosis of s pine M99.89 ; Visit for TB skin test Z11.1 and Essential hypertension I10 [facility] [address] [id number] [address] [place] [phone] Oct, [facility] [address] [id number] [address] [place] [address] Oct, Neuroforaminal stenosis of s pine M99.89 [facility] [address] [id number] [address] [place] [id number] 10 Jarred, 2018 Visit for TB skin test Z11.1 [place] [address] [id number] [address] [place] [phone] 05 Oct, 2017 Cystitis without hematuria N 30.90 [place] [address] [id number] [address] [place] [phone] 28 Sep, 2017 Screening breast examination Z12.39 [place] [address] [id number] [address] [place] [phone] 26 Sep, 2017 Dysuria R30.0 and Cystitis w ithout hematuria N30.90 [place] [address] [id number] [address] [place] [phone] 14 Sep, 2017 Essential hypertension I10 a nd Neuroforaminal stenosis of spine M99.89 [place] [address] [id number] [address] [place] [phone] 04 Sep, 2017 Abnormal glucose R73.09 [place] [address] [id number] [address] [place] [phone] August, Lateral epicondylitis, right elbow M77.11 [place] [address] [id number] [address] [place] [phone] August, Screen for STD (sexually tra nsmitted disease) Z11.3 [place] [address] [facility] [id number] [address] [place] [phone] August, Neuroforaminal stenosis of s pine M99.89 ; Mixed hyperlipidemia E78.2 ; Elevated fasting glucose R73.01 ; Screening mammogram, encounter for Z12.31 and Encounter for well woman exam without gynecological exam Z00.00 [place] [address] [id number] [address] [place] [phone] August, Neuroforaminal stenosis of s pine M99.89 [place] [address] [id number] [address] [place] [phone] August, Essential hypertension I10 ; Hypokalemia E87.6 and Mixed hyperlipidemia E78.2 [place] [address] [id number] [address] [place] [id number] Jul, [facility] [address] [id number] [address] [place] [phone] Jul, Neuroforaminal stenosis of s jose M99.89 [facility] [address] [id number] [address] [place] [id number] Jul, Lateral epicondylitis, right elbow M77.11 [facility] [address] [id number] [address] [place] [id number] Jul, [facility] [address] [id number] [address] [place] [phone] Jun, High ankle sprain of right l ower extremity, initial encounter S93.431A [facility] [address] [id number] [address] [place] [phone] Jun, Essential hypertension I10 [facility] [address] [id number] [address] [place] [phone] Jun, [facility] [address] [id number] [address] [place] [phone] Jun, [facility] [address] [id number] [address] [place] [phone] Jun, Neuroforaminal stenosis of s jose M99.89 [facility] [address] [id number] [address] [place] [id number] Jun, Pain of right upper extremit y M79.601 and Essential hypertension I10 [facility] [address] [id number] [address] [place] [phone] Jun, [facility] [address] [facility] [id number] [address] [place] [phone] Jun, Dysuria R30.0 ; Acute cystit is with hematuria N30.01 and Screen for STD (sexually transmitted disease) Z11.3 [facility] [address] [id number] [address] [place] [phone] May, Chronic pain due to trauma G 89.21 [place] [address] [facility] [id number] [address] [place] [phone] May, Essential hypertension I10 [place] [address] [facility] [id number] [address] [place] [phone] May, Neuroforaminal stenosis of s pine M99.89 [place] [address] [place] [id number] [address] [place] [address] Apr, Allergic reaction, initial e ncounter T78.40XA [place] [address] [address] Apr, Low back pain, unspecified b ack pain laterality, unspecified chronicity, with sciatica presence unspecified M54.5 ; Acute cystitis with hematuria N30.01 ; Neuroforaminal stenosis of spine M99.89 ; Bilateral acute serous otitis media, recurrence not specified H65.03 ; Mixed hyperlipidemia E78.2 ; Essential hypertension I10 ; Immunization counseling Z71.89 and Encounter for immunization Z23 [place] [address] [phone] Apr, Neck pain M54.2 [place] [address] [place] [id number] [address] [place] [phone] Mar, Neuroforaminal stenosis of s pine M99.89 [place] [address] [place] [id number] [address] [place] [phone] Mar, Pharyngitis due to other org anism J02.8 [place] [address] [place] [id number] [address] [place] [phone] Feb, Neuroforaminal stenosis of s pine M99.89 [place] [address] [place] [id number] [address] [place] [id number] 08 Feb, 2017 UTI (urinary tract infection ) N39.0 [place] [address] [place] [id number] [address] [place] [address] Feb, Recent urinary tract infecti on Z87.440 ; Neuroforaminal stenosis of spine M99.89 ; Neck pain M54.2 ; Chronic pain due to trauma G89.21 and Recurrent UTI N39.0 [facility] [address] [id number] [address] [place] [id number] Feb, [facility] [address] [id number] [address] [place] [phone] Jan, Neuroforaminal stenosis of s pine M99.89 [facility] [address] [id number] [address] [place] [id number] Dec, Neuroforaminal stenosis of s pine M99.89 [facility] [address] [id number] [address] [place] [id number] 18 Dec, 2016 Acute seasonal allergic rhin itis due to pollen J30.1 [facility] [address] [id number] [address] [place] [phone] 08 Dec, 2016 [facility] [address] [id number] [address] [place] [phone] 08 Dec, 2016 Acute seasonal allergic rhin itis, unspecified trigger J30.2 ; Allergic conjunctivitis of both eyes H10.13 and Dysfunction of both eustachian tubes H69.83 [facility] [address] [id number] [address] [place] [phone] 07 Dec, 2016 [facility] [address] [id number] [address] [place] [id number] Dec, Nevus D22.9 [facility] [address] [id number] [address] [place] [phone] Nov, Chronic pain due to trauma G 89.21 and Neuroforaminal stenosis of spine M99.89 [facility] [address] [id number] [address] [place] [phone] Nov, Neuroforaminal stenosis of s pine M99.89 ; Essential hypertension I10 ; Mixed hyperlipidemia E78.2 ; Hypokalemia E87.6 ; Neck pain M54.2 and Nevus D22.9 [facility] [address] [id number] [address] [place] [phone] Oct, Neuroforaminal stenosis of s pine M99.89 [facility] [address] [id number] [address] [place] [id number] Sep, Neuroforaminal stenosis of s pine M99.89 [facility] [address] [id number] [address] [place] [phone] Sep, [facility] [address] [id number] [address] [place] [id number] August, [facility] [address] [id number] [address] [place] [id number] August, Neck pain M54.2 and Neurofor aminal stenosis of spine M99.89 [facility] [address] [id number] [address] [place] [phone] August, Routine gynecological examin ation Z01.419 and Screening breast examination Z12.39 [facility] [address] [id number] [address] [place] [phone] Jul, [facility] [address] [id number] [address] [place] [phone] Jul, [facility] [address] [id number] [address] [place] [id number] Jul, Neuroforaminal stenosis of s pine M99.89 [facility] [address] [id number] [address] [place] [id number] Jul, [facility] [address] [id number] [address] [place] [phone] Jul, Neuroforaminal stenosis of l umbar 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 [facility] [address] [id number] [address] [place] [id number] Jul, [facility] [address] [facility] [id number] [address] [place] [id number] Jul, [facility] [address] [facility] [id number] [address] [place] [phone] Jun, Neuroforaminal stenosis of s jose M99.89 [facility] [address] [place] [id number] [address] [place] [phone] Jun, Uterine leiomyoma, unspecifi ed location D25.9 and Allergic reaction caused by a drug, initial encounter T78.40XA [facility] [address] [facility] [id number] [address] [place] [phone] Jun, [place] [address] [facility] [id number] [address] [place] [phone] May, UTI symptoms R39.9 and Pain of right sacroiliac joint M53.3 [place] [address] [place] [id number] [address] [place] [address] May, Neuroforaminal stenosis of s jose M99.89 [place] [address] [facility] [id number] [address] [place] [phone] May, [place] [address] [facility] [id number] [address] [place] [id number] May, Acute mucoid otitis media of left ear H65.112 and Acute non- recurrent maxillary sinusitis J01.00 [place] [address] [place] [id number] [address] [place] [phone] May, Acute bacterial conjunctivit is of both eyes H10.33 ; Left arm pain M79.602 and Hypokalemia E87.6 [place] [address] [facility] [id number] [address] [place] [phone] Apr, [place] [address] [facility] [id number] [address] [place] [address] Apr, Neuroforaminal stenosis of s pine M99.89 ; Neck pain M54.2 ; Chronic pain due to trauma G89.21 ; Mixed hyperlipidemia E78.2 ; Essential hypertension I10 and Hypokalemia E87.6 [facility] [address] [facility] [id number] [address] [place] [phone] Mar, Oral candidiasis B37.0 ; Nathaniel roforaminal stenosis of spine M99.89 ; Neck pain M54.2 and Chronic pain due to trauma G89.21 [place] [address] [id number] [address] [place] [id number] Feb, [facility] [address] [id number] [address] [place] [phone] Feb, [facility] [address] [facility] [id number] [address] [place] [phone] Feb, UTI (urinary tract infection ) N39.0 [place] [address] [facility] [id number] [address] [place] [phone] Feb, Dysuria R30.0 [place] [address] [facility] [id number] [address] [place] [id number] Feb, Dysuria R30.0 [place] [address] [facility] [id number] [address] [place] [phone] Feb, Neuroforaminal stenosis of s pine M99.89 ; Neck pain M54.2 ; Essential hypertension I10 ; Chronic pain due to trauma G89.21 ; Dysuria R30.0 ; Abnormal MRI, shoulder R93.8 and Acute cystitis without hematuria N30.00 [facility] [address] [id number] [address] [place] [phone] Jan, [facility] [address] [id number] [address] [place] [phone] Jan, [facility] [address] [facility] [id number] [address] [place] [phone] Jan, [facility] [address] [facility] [id number] [address] [place] [phone] Jan, Abnormal MRI R93.8 [facility] [address] [id number] [address] [place] [phone] 29 Dec, 2015 [facility] [address] [id number] [address] [place] [phone] 15 Dec, 2015 Acute pain of left shoulder M25.512 [facility] [address] [id number] [address] [place] [id number] 09 Dec, 2015 [facility] [address] [id number] [address] [place] [phone] 08 Dec, 2015 [facility] [address] [id number] [address] [place] [phone] 07 Dec, 2015 Acute pain of left shoulder M25.512 [facility] [address] [id number] [address] [place] [phone] Nov, [facility] [address] [id number] [address] [place] [id number] Nov, Neuroforaminal stenosis of s pine M99.89 ; Neck pain M54.2 ; Abnormal mammogram R92.8 ; Essential hypertension I10 and Chronic pain due to trauma G89.21 [facility] [address] [id number] [address] [place] [phone] Nov, [facility] [address] [id number] [address] [place] [phone] Oct, Acute stress disorder F43.0 [facility] [address] [id number] [address] [place] [phone] Oct, [facility] [address] [id number] [address] [place] [phone] Oct, [facility] [address] [id number] [address] [place] [id number] 05 Oct, 2015 [facility] [address] [id number] [address] [place] [phone] Sep, [facility] [address] [id number] [address] [place] [phone] August, [facility] [address] [id number] [address] [place] [id number] Jul, Neuroforaminal stenosis of s pine M99.89 ; Neck pain M54.2 ; Abnormal mammogram R92.8 and Essential hypertension I10 [facility] [address] [id number] [address] [place] [id number] Jul, [facility] [address] [id number] [address] [place] [id number] Jul, [facility] [address] [id number] [address] [place] [id number] Jul, Abnormal mammogram R92.8 [facility] [address] [id number] [address] [place] [id number] Jul, [facility] [address] [id number] [address] [place] [id number] Jul, UTI (urinary tract infection ) N39.0 [facility] [address] [id number] [address] [place] [id number] Jul, Dysuria R30.0 [facility] [address] [id number] [address] [place] [id number] Jun, [facility] [address] [id number] [address] [place] [id number] Jun, [facility] [address] [id number] [address] [place] [id number] Jun, Hypokalemia E87.6 and Hematu martina R31.9 [facility] [address] [id number] [address] [place] [id number] Jun, Hypokalemia E87.6 [facility] [address] [id number] [address] [place] [id number] Jun, [facility] [address] [place] [id number] Jun, Hypokalemia E87.6 [facility] [address] [id number] Jun, Hypokalemia E87.6 [place] [facility] [address] [place] [id number] [place] [id number] 15 Jun, 2015 Neuroforaminal stenosis of s pine M99.89 ; Hypokalemia E87.6 ; Neck pain M54.2 ; Essential hypertension I10 ; Mixed hyperlipidemia E78.2 and Screening breast examination Z12.39 [place] [address] [address] Jun, Dysuria R30.0 ; UTI (urinary tract infection) N39.0 and Hematuria R31.9 [place] [address] [address] May, [facility] [address] [address] 18 May, 2015 High risk sexual behavior Z7 2.51 ; Hypokalemia E87.6 ; Neuroforaminal stenosis of spine M99.89 ; Neck pain M54.2 ; Essential hypertension I10 ; Mixed hyperlipidemia E78.2 ; STD exposure Z20.2 and Concern about STD in female without diagnosis Z71.1 [place] [address] [address] 16 May, 2015 Neuroforaminal stenosis of s pine M99.89 ; Neck pain M54.2 ; Hypokalemia E87.6 ; Essential hypertension I10 and Mixed hyperlipidemia E78.2 [place] [address] [address] 11 May, 2015 [facility] [address] [place] [id number] [address] [place] [address] 08 May, 2015 High risk sexual behavior Z7 2.51 ; STD exposure Z20.2 and Concern about STD in female without diagnosis Z71.1 [place] [address] [address] May, [place] [address] [address] Apr, Neuroforaminal stenosis of s pine M99.89 ; Mixed hyperlipidemia E78.2 ; Essential hypertension I10 and Hypokalemia E87.6 [place] [address] [address] Mar, [place] [address] [address] Mar, Hypokalemia E87.6 [place] [address] [address] Mar, Neuroforaminal stenosis of s pine M99.89 ; Mixed hyperlipidemia E78.2 ; Neck pain M54.2 ; Essential hypertension I10 ; Abnormal fasting glucose R73.09 ; Hypokalemia E87.6 and Constipation K59.00 [place] [address] [address] Feb, Neuroforaminal stenosis of s jose M99.89 ; Mixed hyperlipidemia E78.2 ; Neck pain M54.2 ; Essential hypertension I10 ; Abnormal fasting glucose R73.09 ; Hypokalemia E87.6 and Constipation K59.00 [place] [address] [address] Feb, Elevated fasting blood sugar R73.01 [place] [address] [address] Feb, Elevated fasting blood sugar R73.01 [place] [address] [address] Feb, Hair loss L65.9 [place] [address] [address] Feb, Sinusitis J32.9 ; Essential hypertension I10 and Hair loss L65.9 [place] [address] [id number] [address] [place] [address] Jan, [place] [address] [id number] [address] [place] [address] Jan, Essential hypertension I10 ; Neuroforaminal stenosis of spine M99.89 ; Neck pain M54.2 ; Mixed hyperlipidemia E78.2 and Anxiety F41.9 [place] [address] [id number] [address] [place] [address] Jan, [place] [address] [id number] [address] [place] [address] Jan, Mixed hyperlipidemia E78.2 ; Essential (primary) hypertension I10 ; Strain of muscle, fascia and tendon at neck level, subsequent encounter S16.1XXD and Tension-type headache, unspecified, not intractable G44.209 [place] [address] [id number] [address] [place] [address] Dec, Lumbar back pain 724.2 and N euroforaminal stenosis of spine 724.00 [place] [address] [id number] [address] [place] [address] Nov, [place] [address] [id number] [address] [place] [address] Nov, Lumbar back pain 724.2 and N euroforaminal stenosis of spine 724.00 [place] [address] [id number] [address] [place] [address] Nov, Edema 782.3 ; Lumbar back pa in 724.2 ; Essential hypertension, benign 401.1 ; Hyperlipemia 272.4 ; Neuroforaminal stenosis of spine 724.00 and Post-concussion headache 339.20 [place] [address] [id number] [address] [place] [address] Nov, [place] [address] [address] [facility] [id number] [address] [place] [address] Nov, [facility] [address] [id number] [address] [place] [address] Oct, Essential hypertension, sheridan gn 401.1 [facility] [address] [id number] [address] [place] [address] Oct, Edema 782.3 ; Lumbar back pa in 724.2 ; Essential hypertension, benign 401.1 ; Hyperlipemia 272.4 ; Neuroforaminal stenosis of spine 724.00 and Post-concussion headache 339.20 [place] [address] [id number] [address] [place] [address] Oct, [place] [address] [address] [facility] [id number] [address] [place] [address] Oct, Edema 782.3 [place] [address] [address] [facility] [id number] [place] [address] Oct, Lumbar back pain 724.2 [place] [address] [address] [facility] [id number] [address] [place] [address] Oct, Cervicalgia 723.1 ; Lumbar b ack pain 724.2 and High risk medication use V58.69 [place] [address] [address] [facility] [id number] [address] [place] [address] Sep, [place] [address] [address] [facility] [id number] [address] [place] [address] Sep, Lumbar strain 847.2 [place] [address] [address] [facility] [id number] [address] [place] [address] August, Edema 782.3 and Eustachian t ube dysfunction 381.81 [place] [address] [address] [facility] [id number] [address] [place] [address] August, [place] [address] [address] [facility] [id number] [address] [place] [address] August, Eustachian tube dysfunction 381.81 [place] [address] [address] [facility] [id number] [address] [place] [address] Jul, Otalgia 388.70 and Otitis me jonathon 382.9 [facility] [address] [id number] [address] [place] [address] Jul, [facility] [address] [id number] [address] [place] [address] Jul, [facility] [address] [id number] [address] [place] [address] Jul, [facility] [address] [id number] [address] [place] [address] Jul, [facility] [address] [id number] [address] [place] [address] Jul, [facility] [address] [id number] [address] [place] [address] Jun, [facility] [address] [id number] [address] [place] [address] Jun, [facility] [address] [id number] [address] [place] [address] Jun, [facility] [address] [id number] [address] [place] [address] May, [facility] [address] [id number] [address] [place] [address] May, [facility] [address] [id number] [address] [place] [address] May, [facility] [address] [id number] [address] [place] [address] May, [facility] [address] [id number] [address] [place] [address] May, [facility] [address] [id number] [address] [place] [address] May, [facility] [address] [id number] [address] [place] [address] May, [facility] [address] [id number] [address] [place] [address], [place] [address] May, [facility] [address] [id number] [address] [place] [address], [place] [address] May, [facility] [address] [id number] [address] [place] [address], [place] [address] May, [facility] [address] [id number] [address] [place] [address], [place] [address] Apr, [facility] [address] [id number] [address] [place] [address], [place] [address] Apr, [facility] [address] [id number] [address] [place] [address], [place] [address] Apr, [facility] [address] [id number] [address] [place] [address], [place] [address] Apr, [facility] [address] [id number] [address] [place] [address], [place] [address] Apr, [facility] [address] [id number] [address] [place] [address], [place] [address] Apr, [facility] [address] [id number] [address] [place] [address], [place] [address] Apr, [facility] [address] [id number] [address] [place] [address], [place] [address] Apr, [facility] [address] [id number] [address] [place] [address], [place] [address] Apr, [facility] [address] [id number] [address] [place] [address], [place] [address] Apr, [facility] [address] [id number] [address] [place] [address], [place] [address] Apr, [facility] [address] [id number] [address] [place] [address], [place] [address] Apr, [facility] [address] [id number] [address] [place] [address], [place] [address] Apr, [facility] [address] [id number] [address] [place] [address], [place] [address] Apr, [facility] [address] [id number] [address] [place] [address], [place] [address] Apr, [facility] [address] [id number] [address] [place] [address], [place] [address] Mar, [facility] [address] [id number] [address] [place] [address], [place] [address] Mar, [facility] [address] [id number] [address] [place] [address], [place] [address] Mar, [facility] [address] [id number] [address] [place] [address], [place] [address] Mar, [facility] [address] [id number] [address] [place] [address], [place] [address] Feb, [facility] [address] [id number] [address] [place] [address], [place] [address] Feb, [facility] [address] [id number] [address] [place] [address], [place] [address] Feb, [facility] [address] [id number] [address] [place] [address], [place] [address] Feb, [facility] [address] [id number] [address] [place] [address], [place] [address] Jan, [facility] [address] [id number] [address] [place] [address], [place] [address] Jan, [facility] [address] [id number] [address] [place] [address], [place] [address] Jan, [facility] [address] [id number] [address] [place] [address], [place] [address] Jan, [facility] [address] [id number] [address] [place] [address], [place] [address] Jan, [facility] [address] [id number] [address] [place] [address], [place] [address] Jan, [facility] [address] [id number] [address] [place] [address], [place] [address] Jan, [facility] [address] [id number] [address] [place] [address], [place] [address] Jan, [facility] [address] [id number] [address] [place] [address], [place] [address] Dec, [facility] [address] [id number] [address] [place] [address], [place] [address] Dec, [facility] [address] [id number] [address] [place] [address], [place] [address] Dec, [facility] [address] [id number] [address] [place] [address], [place] [address] Dec, [facility] [address] [id number] [address] [place] [address], [place] [address] Oct, [facility] [address] [id number] [address] [place] [address], [place] [address] Oct, [facility] [address] [id number] [address] [place] [address], [place] [address] Oct, [facility] [address] [id number] [address] [place] [address], [place] [address] Oct, [facility] [address] [id number] [address] [place] [address], [place] [address] Oct, [facility] [address] [id number] [address] [place] [address], [place] [address] Oct, [facility] [address] [id number] [address] [place] [address], [place] [address] Oct, [facility] [address] [id number] [address] [place] [address], [place] [address] Oct, [facility] [address] [id number] [facility] [address] Sep, [facility] [address] [id number] [facility] [place] [address] Sep, [facility] [address] [id number] [facility] [address] Sep, [facility] [address] [id number] [address] [place] [address], [place] [address] Sep, [facility] [address] [id number] [address] [place] [address], [place] [address] Sep, [facility] [address] [id number] [address] [place] [address], [place] [address] Sep, [facility] [address] [id number] [address] [place] [address], [place] [address] Sep, [facility] [address] [id number] [address] [place] [address], [place] [address] Sep, [facility] [address] [id number] [address] [place] [address], [place] [address] Sep, [facility] [address] [id number] [address] [place] [address], [place] [address] Sep, [facility] [address] [id number] [address] [place] [address], [place] [address] August, [facility] [address] [id number] [address] [place] [address], [place] [address] August, [facility] [address] [id number] [address] [place] [address], [place] [address] August, [facility] [address] [id number] [address] [place] [address], [place] [address] August, [facility] [address] [id number] [address] [place] [address], [place] [address] August, [facility] [address] [id number] [address] [place] [address], [place] [address] August, [facility] [address] [id number] [address] [place] [address], [place] [address] August, [facility] [address] [id number] [address] [place] [address], [place] [address] August, [facility] [address] [id number] [address] [place] [address], [place] [address] August, [facility] [address] [id number] [address] [place] [address], [place] [address] August, [facility] [address] [id number] [address] [place] [address], [place] [address] August, [facility] [address] [id number] [address] [place] [address], [place] [address] August, [facility] [address] [id number] [address] [place] [address], [place] [address] Jul, [facility] [address] [id number] [address] [place] [address], [place] [address] Jul, [facility] [address] [id number] [address] [place] [address], [place] [address] Jul, [facility] [address] [id number] [address] [place] [address], [place] [address] Jul, [facility] [address] [id number] [address] [place] [address], [place] [address] Jul, [facility] [address] [id number] [address] [place] [address], [place] [address] Jul, [facility] [address] [id number] [address] [place] [address], [place] [address] Jun, [facility] [address] [id number] [address] [place] [address], [place] [address] Jun, [facility] [address] [id number] [address] [place] [address], [place] [address] May, [facility] [address] [id number] [address] [place] [address] 10 May, 2013 [facility] [address] [id number] [address] [place] [address], [place] [address] Apr, [facility] [address] [id number] [address] [place] [address], [place] [address] Apr, [facility] [address] [id number] [address] [place] [address], [place] [address] Apr, [facility] [address] [id number] [address] [place] [address], [place] [address] Apr, [facility] [address] [id number] [address] [place] [address], [place] [address] Apr, [facility] [address] [id number] [address] [place] [address], [place] [address] Apr, [facility] [address] [id number] [address] [place] [address], [place] [address] Apr, [facility] [address] [id number] [address] [place] [address], [place] [address] Apr, [facility] [address] [id number] [address] [place] [address], [place] [address] Apr, [facility] [address] [id number] [address] [place] [address], [place] [address] Apr, [facility] [address] [id number] [address] [place] [address], [place] [address] Apr, [facility] [address] [id number] [address] [place] [address], [place] [address] Apr, [facility] [address] [id number] [address] [place] [address], [place] [address] Apr, [facility] [address] [id number] [address] [place] [address], [place] [address] Mar, [facility] [address] [id number] [address] [place] [address], [place] [address] Mar, [facility] [address] [id number] [address] [place] [address], [place] [address] Mar, [facility] [address] [id number] [address] [place] [address], [place] [address] Mar, [facility] [address] [id number] [address] [place] [address], [place] [address] Feb, [facility] [address] [id number] [address] [place] [address], [place] [address] Feb, [facility] [address] [id number] [address] [place] [address], [place] [address] Feb, [facility] [address] [id number] [address] [place] [address], [place] [address] Feb, [facility] [address] [id number] [address] [place] [address], [place] [address] Jan, [facility] [address] [id number] [address] [place] [address], [place] [address] Jan, [facility] [address] [id number] [address] [place] [address], [place] [address] Jan, [facility] [address] [id number] [address] [place] [address], [place] [address] Jan, [facility] [address] [id number] [address] [place] [address], [place] [address] Jan, [facility] [address] [id number] [address] [place] [address], [place] [address] Jan, [facility] [address] [id number] [address] [place] [address], [place] [address] Jan, [facility] [address] [id number] [address] [place] [address], [place] [address] Jan, [facility] [address] [id number] [address] [place] [address], [place] [address] Jan, [facility] [address] [id number] [address] [place] [id number] 26 Dec, 2012 [facility] [address] [id number] [address] [place] [address], [place] [address] 16 Dec, 2012 [facility] [address] [id number] [address] [place] [address], [place] [address] 16 Dec, 2012 [facility] [address] [id number] [address] [place] [address], [place] [address] 13 Dec, 2012 [facility] [address] [id number] [address] [place] [address], [place] [address] Nov, [facility] [address] [id number] [address] [place] [address], [place] [address] Nov, [facility] [address] [id number] [address] [place] [address], [place] [address] Nov, [facility] [address] [id number] [address] [place] [address], [place] [address] Nov, [facility] [address] [id number] [address] [place] [address], [place] [address] Oct, [facility] [address] [id number] [address] [place] [address], [place] [address] Sep, [facility] [address] [id number] [address] [place] [address], [place] [address] August, [facility] [address] [id number] [address] [place] [address], [place] [address] August, [facility] [address] [id number] [address] [place] [address], [place] [address] August, [facility] [address] [id number] [address] [place] [address], [place] [address] August, [facility] [address] [id number] [address] [place] [address], [place] [address] August, [facility] [address] [id number] [address] [place] [address], [place] [address] August, [facility] [address] [id number] [address] [place] [address], [place] [address] August, [facility] [address] [id number] [address] [place] [address], [place] [address] August, [facility] [address] [id number] [address] [place] [address], [place] [address] August, [facility] [address] [id number] [address] [place] [address], [place] [address] August, [facility] [address] [id number] [address] [place] [address], [place] [address] August, [facility] [address] [id number] [address] [place] [address], [place] [address] August, [facility] [address] [id number] [address] [place] [address], [place] [address] Jul, [facility] [address] [id number] [address] [place] [address], [place] [address] Jul, [facility] [address] [id number] [address] [place] [address], [place] [address] Jul, [facility] [address] [id number] [address] [place] [address], [place] [address] Jul, [facility] [address] [id number] [address] [place] [place] [address], [place] [address] Jul, [facility] [address] [id number] [address] [place] [address], [place] [address] Jul, [facility] [address] [id number] [address] [place] [address], [place] [address] Jul, [facility] [address] [id number] [address] [place] [address], [place] [address] Jul, [facility] [address] [id number] [address] [place] [address], [place] [address] Jul, [facility] [address] [id number] [address] [place] [address], [place] [address] Jul, [facility] [address] [id number] [address] [place] [address], [place] [address] Jul, [facility] [address] [id number] [address] [place] [address], [place] [address] Jun, [facility] [address] [id number] [address] [place] [address], [place] [address] Jun, [facility] [address] [id number] [address] [place] [address], [place] [address] Jun, [facility] [address] [id number] [address] [place] [address], [place] [address] Jun, [facility] [address] [id number] [address] [place] [address], [place] [address] May, [facility] [address] [id number] [address] [place] [address], [place] [address] May, [facility] [address] [id number] [address] [place] [address], [place] [address] 05 May, 2012 [facility] [address] [id number] [address] [place] [address], [place] [address] May, [facility] [address] [id number] [address] [place] [address], [place] [address] May, [facility] [address] [id number] [address] [place] [address], [place] [address] May, [facility] [address] [id number] [address] [place] [address], [place] [address] Apr, [facility] [address] [id number] [address] [place] [address], [place] [address] Apr, [facility] [address] [id number] [address] [place] [address], [place] [address] Apr, [facility] [address] [id number] [address] [place] [address], [place] [address] Apr, [facility] [address] [id number] [address] [place] [address], [place] [address] 15 Mar, 2012 [facility] [address] [id number] [address] [place] [address], [place] [address] 14 Mar, 2012 [facility] [address] [id number] [address] [place] [address], [place] [address] 14 Mar, 2012 [facility] [address] [id number] [address] [place] [address], [place] [address] 14 Mar, 2012 [facility] [address] [id number] [address] [place] [address], [place] [address] 14 Mar, 2012 [facility] [address] [id number] [address] [place] [address], [place] [address] 06 Mar, 2012 [facility] [address] [id number] [address] [place] [address], [place] [address] 06 Mar, 2012 [facility] [address] [id number] [address] [place] [address], [place] [address] Feb, [facility] [address] [id number] [address] [place] [address], [place] [address] Feb, [facility] [address] [id number] [address] [place] [address], [place] [address] Feb, [facility] [address] [id number] [address] [place] [address], [place] [address] Feb, [facility] [address] [id number] [address] [place] [address], [place] [address] Jan, [facility] [address] [id number] [address] [place] [address], [place] [address] Jan, [facility] [address] [id number] [address] [place] [address], [place] [address] 10 Jan, 2012 [facility] [address] [id number] [address] [place] [address], [place] [address] 10 Jan, 2012 [facility] [address] [id number] [address] [place] [address], [place] [address] 03 Jan, 2012 [facility] [address] [id number] [address] [place] [address], [place] [address] Jan, [facility] [address] [id number] [address] [place] [address], [place] [address] Dec, [facility] [address] [id number] [address] [place] [address], [place] [address] Dec, [facility] [address] [id number] [address] [place] [address], [place] [address] Nov, [facility] [address] [id number] [address] [place] [address], [place] [address] Sep, [facility] [address] [id number] [address] [place] [address], [place] [address] August, [facility] [address] [id number] [address] [place] [address], [place] [address] August, [facility] [address] [id number] [address] [place] [address], [place] [address] August, [facility] [address] [id number] [address] [place] [address], [place] [address] August, [facility] [address] [id number] [address] [place] [address], [place] [address] August, [facility] [address] [id number] [address] [place] [address], [place] [address] Jun, [facility] [address] [id number] [address] [place] [address], [place] [address] Jun, [facility] [address] [id number] [address] [place] [address], [place] [address] Apr, [facility] [address] [id number] [address] [place] [address], [place] [address] Apr, [facility] [address] [id number] [address] [place] [address], [place] [address] Mar, [facility] [address] [id number] [address] [address] Feb, [facility] [address] [id number] [address] [place] [id number] 14 Feb, 2011 [facility] [address] [id number] [address] [place] [phone] 14 Feb, 2011 [facility] [address] [id number] [address] [place] [id number] 17 Jan, 2011 [facility] [address] [id number] [address] [place] [phone] 15 Jan, 2011 [facility] [address] [id number] [address] [place] [phone] 15 Jan, 2011 [facility] [address] [id number] [address] [place] [phone] 14 Jan, 2011 [facility] [address] [id number] [address] [place] [phone] 15 May, 2010 [facility] [address] [id number] [address] [place] [phone] Mar, [facility] [address] [id number] [address] [place] [phone] Oct, [facility] [address] [id number] [address] [place] [phone] Sep, [facility] [address] [id number] [address] [place] [address] Mar, [facility] [address] [id number] [address] [place] [phone] Jan, [facility] [address] [id number] [address] [place] [phone] Jan, [facility] [address] [id number] [address] [place] [phone] May, IMMUNIZATIONS No Known Immunizations SOCIAL HISTORY Never Assessed REASON FOR VISIT PLAN OF CARE VITAL SIGNS Blood pressure systolic 124 mmHg 2014-02-12 Blood pressure diastolic 76 mmHg 2014-02-12 MEDICATIONS Unknown Medications RESULTS No Results PROCEDURES Procedure Date Ordered Result Body Site BLOOD PRESSURE, MEASURED Feb 12, 2014 INSTRUCTIONS MEDICATIONS ADMINISTERED No Known Medications [...]
--- OUTSIDE RECORDS SUMMARY | 2019-11-23 05:56 | XMS REPORT ---
Author Author Liana Coe Doctor Organization [facility] Address Unknown Phone Unavailable Care Team Providers Care Sink Maker Name Role Phone Migration, Doctor Unavailable Unavailable PROBLEMS Type Condition ICD9-CM Code [id number] Code Onset Dates Condition S tatus SNOMED Code Problem Hematuria, unspecified type R31.9 Ac tive 91596250 Problem Abnormal renal ultrasound R93.429 Acti ve [id number] Problem Anxiety F41.9 Active 04590866 Problem Hypokalemia E87.6 Active 50774000 Problem Abnormal glucose R73.09 Active 102 131055 Problem Chronic pain due to trauma G89.21 Act juanis 650682218 Problem Neuroforaminal stenosis of spine M99.89 Active 842285474118 Problem Neck pain M54.2 Active 09915668 Problem Essential hypertension I10 Active 40665081 Problem Mixed hyperlipidemia E78.2 Active 97264194 ALLERGIES No Information ENCOUNTERS Encounter Location Date Diagnosis [facility] [id number] [place] [address] Nov, [facility] [address] [address] Nov, Neuroforaminal stenosis of s pine M99.89 [facility] [id number] [place] [phone] Nov, Acute non-recurrent maxillar y sinusitis J01.00 [facility] [id number] [place] [address] Oct, Hypokalemia E87.6 [facility] [id number] [place] [address] Oct, Wasp sting, undetermined int ent, initial encounter T63.464A and Cellulitis of left lower extremity L03.116 [facility] [id number] [place] [address] Oct, Neuroforaminal stenosis of s pine M99.89 [facility] [address] [id number] [address] [place] [address] Sep, [facility] [address] [id number] [address] [place] [phone] Sep, [facility] [address] [id number] [address] [place] [address] Sep, Routine screening for STI (s exually transmitted infection) Z11.3 [place] [address] [id number] [address] [place] [phone] 14 Sep, 2018 Routine screening for STI (s exually transmitted infection) Z11.3 ; Well woman exam with routine gynecological exam Z01.419 and Breast cancer screening Z12.39 [place] [address] [id number] [address] [place] [address] Sep, Neuroforaminal stenosis of s pine M99.89 [place] [id number] [id number] [address] [place] [address] August, Neuroforaminal stenosis of s pine M99.89 [place] [address] [facility] [id number] [address] [place] [address] August, Neuroforaminal stenosis of s pine M99.89 ; Chronic pain due to trauma G89.21 and Mixed hyperlipidemia E78.2 [place] [address] [id number] [address] [place] [phone] Jul, Viral upper respiratory illn ess J06.9 and Acute non-recurrent frontal sinusitis J01.10 [place] [address] [id number] [address] [place] [address] Jul, Congestion of nasal sinus R0 9.81 [place] [address] [facility] [id number] [address] [place] [address] Jul, Neuroforaminal stenosis of s pine M99.89 and Essential hypertension I10 [place] [address] [id number] [address] [place] [phone] May, Neuroforaminal stenosis of s pine M99.89 [facility] [address] [id number] [address] [place] [phone] May, [facility] [address] [id number] [address] [place] [phone] May, Congestion of nasal sinus R0 9.81 [facility] [address] [id number] [address] [place] [address] May, [facility] [address] [id number] [address] [place] [phone] Apr, Neuroforaminal stenosis of s pine M99.89 [facility] [address] [id number] [address] [place] [address] Apr, Neuroforaminal stenosis of s pine M99.89 and Chronic pain due to trauma G89.21 [facility] [address] [id number] [address] [place] [address] Mar, UTI (urinary tract infection ) N39.0 [facility] [address] [id number] [address] [place] [phone] Mar, Vertigo R42 [facility] [address] [id number] [address] [place] [address] Mar, Neuroforaminal stenosis of s pine M99.89 [facility] [address] [id number] [address] [place] [phone] Feb, Extensor tendon disruption M 67.89 [facility] [address] [id number] [address] [place] [phone] Feb, Neuroforaminal stenosis of s pine M99.89 and High risk medication use Z79.899 [facility] [address] [id number] [address] [place] [address] Jan, Hypokalemia E87.6 [place] [address] [facility] [id number] [address] [place] [address] Jan, Flank pain R10.9 and Acute r ight-sided low back pain without sciatica M54.5 [place] [address] [facility] [id number] [address] [place] [address] Jan, Hypokalemia E87.6 [place] [address] [place] [address] [id number] [address] [place] [address] Jan, [place] [address] [id number] [place] [address] Jan, URI, acute J06.9 [place] [id number] [place] [phone] Jan, Neuroforaminal stenosis of s pine M99.89 [place] [address] [address] 13 Dec, 2017 Lateral epicondylitis, right elbow M77.11 [place] [address] [address] 11 Dec, 2017 Allergic rhinitis due to monica rosalina, unspecified seasonality J30.1 and Allergic conjunctivitis of both eyes H10.13 [place] [address] [address] 10 Dec, 2017 Neuroforaminal stenosis of s pine M99.89 [place] [address] [place] [address] [id number] [address] [place] [phone] 06 Dec, 2017 Mixed hyperlipidemia E78.2 [place] [address] [place] [address] [id number] [address] [place] [phone] 05 Dec, 2017 Abnormal glucose R73.09 ; Ab normal renal ultrasound R93.429 ; Dysuria R30.0 ; Cystitis without hematuria N30.90 ; Hypokalemia E87.6 ; Mixed hyperlipidemia E78.2 and Hematuria, unspecified type R31.9 [place] [address] [place] [address] [id number] [address] [place] [phone] Nov, Hypokalemia E87.6 ; Mixed hy perlipidemia E78.2 and Hematuria, unspecified type R31.9 [place] [address] [facility] [id number] [address] [place] [address] Nov, [place] [address] [facility] [id number] [address] [place] [phone] Nov, Hypokalemia E87.6 [place] [address] [facility] [id number] [address] [place] [address] Nov, [place] [address] [facility] [id number] [address] [place] [phone] Nov, Abnormal renal ultrasound R9 3.429 [place] [address] [facility] [id number] [address] [place] [address] Nov, Abnormal renal ultrasound R9 3.429 [place] [address] [place] [address] [id number] [address] [place] [phone] Nov, Hematuria, unspecified type R31.9 and Neuroforaminal stenosis of spine M99.89 [place] [address] [id number] [address] [place] [phone] Nov, Dysuria R30.0 [place] [address] [facility] [id number] [address] [place] [phone] Oct, Lateral epicondylitis, right elbow M77.11 [place] [address] [facility] [id number] [address] [place] [address] Oct, Neuroforaminal stenosis of s pine M99.89 ; Visit for TB skin test Z11.1 and Essential hypertension I10 [place] [address] [facility] [id number] [address] [place] [phone] Oct, [place] [address] [facility] [id number] [address] [place] [address] Oct, Neuroforaminal stenosis of s pine M99.89 [place] [address] [id number] [address] [place] [phone] 10 Oct, 2017 Visit for TB skin test Z11.1 [place] [address] [id number] [address] [place] [phone] 05 Oct, 2017 Cystitis without hematuria N 30.90 [place] [address] [facility] [id number] [address] [place] [address] 28 Sep, 2017 Screening breast examination Z12.39 [place] [address] [facility] [id number] [address] [place] [phone] 26 Sep, 2017 Dysuria R30.0 and Cystitis w ithout hematuria N30.90 [place] [address] [facility] [id number] [address] [place] [phone] 14 Sep, 2017 Essential hypertension I10 a nd Neuroforaminal stenosis of spine M99.89 [place] [address] [facility] [id number] [address] [place] [address] 04 Sep, 2017 Abnormal glucose R73.09 [place] [address] [facility] [id number] [address] [place] [address] August, Lateral epicondylitis, right elbow M77.11 [place] [address] [facility] [id number] [address] [place] [address] August, Screen for STD (sexually tra nsmitted disease) Z11.3 [place] [address] [facility] [id number] [address] [place] [address] August, Neuroforaminal stenosis of s pine M99.89 ; Mixed hyperlipidemia E78.2 ; Elevated fasting glucose R73.01 ; Screening mammogram, encounter for Z12.31 and Encounter for well woman exam without gynecological exam Z00.00 [place] [address] [facility] [id number] [address] [place] [phone] 17 Aug, 2017 Neuroforaminal stenosis of s pine M99.89 [place] [address] [facility] [id number] [address] [place] [address] August, Essential hypertension I10 ; Hypokalemia E87.6 and Mixed hyperlipidemia E78.2 [facility] [address] [id number] [address] [place] [address] Jul, [facility] [address] [id number] [address] [place] [phone] Jul, Neuroforaminal stenosis of s pine M99.89 [facility] [address] [id number] [address] [place] [address] Jul, Lateral epicondylitis, right elbow M77.11 [facility] [address] [id number] [address] [place] [address] Jul, [place] [address] [id number] [address] [place] [address] Jun, High ankle sprain of right l ower extremity, initial encounter S93.431A [place] [address] [id number] [address] [place] [address] Jun, Essential hypertension I10 [facility] [address] [id number] [address] [place] [phone] Jun, [facility] [address] [id number] [address] [place] [address] Jun, [facility] [address] [id number] [address] [place] [address] Jun, Neuroforaminal stenosis of s pine M99.89 [facility] [address] [id number] [address] [place] [address] Jun, Pain of right upper extremit y M79.601 and Essential hypertension I10 [facility] [address] [id number] [address] [place] [phone] Jun, [facility] [address] [id number] [address] [place] [phone] Jun, Dysuria R30.0 ; Acute cystit is with hematuria N30.01 and Screen for STD (sexually transmitted disease) Z11.3 [place] [id number] [place] [address] May, Chronic pain due to trauma G 89.21 [place] [address] [place] [id number] [address] [place] [address] May, Essential hypertension I10 [place] [address] [address] May, Neuroforaminal stenosis of s pine M99.89 [place] [address] [address] Apr, Allergic reaction, initial e ncounter T78.40XA [place] [address] [address] Apr, Low back pain, unspecified b ack pain laterality, unspecified chronicity, with sciatica presence unspecified M54.5 ; Acute cystitis with hematuria N30.01 ; Neuroforaminal stenosis of spine M99.89 ; Bilateral acute serous otitis media, recurrence not specified H65.03 ; Mixed hyperlipidemia E78.2 ; Essential hypertension I10 ; Immunization counseling Z71.89 and Encounter for immunization Z23 [place] [address] [address] Apr, Neck pain M54.2 [place] [address] [address] Mar, Neuroforaminal stenosis of s pine M99.89 [place] [id number] [place] [address] Mar, Pharyngitis due to other org anism J02.8 [place] [address] [place] [id number] [address] [place] [address] Feb, Neuroforaminal stenosis of s pine M99.89 [place] [address] [place] [id number] [address] [place] [address] 08 Feb, 2017 UTI (urinary tract infection ) N39.0 [facility] [address] [id number] [address] [place] [address] Feb, Recent urinary tract infecti on Z87.440 ; Neuroforaminal stenosis of spine M99.89 ; Neck pain M54.2 ; Chronic pain due to trauma G89.21 and Recurrent UTI N39.0 [facility] [address] [id number] [address] [place] [address] Feb, [facility] [address] [id number] [address] [place] [address] Jan, Neuroforaminal stenosis of s pine M99.89 [facility] [address] [id number] [address] [place] [address] Dec, Neuroforaminal stenosis of s pine M99.89 [facility] [address] [id number] [address] [place] [phone] Dec, Acute seasonal allergic rhin itis due to pollen J30.1 [facility] [address] [id number] [address] [place] [address] Dec, [facility] [address] [id number] [address] [place] [address] Dec, Acute seasonal allergic rhin itis, unspecified trigger J30.2 ; Allergic conjunctivitis of both eyes H10.13 and Dysfunction of both eustachian tubes H69.83 [facility] [address] [id number] [address] [place] [address] Dec, [facility] [address] [id number] [address] [place] [phone] Dec, Nevus D22.9 [facility] [address] [id number] [address] [place] [address] Nov, Chronic pain due to trauma G 89.21 and Neuroforaminal stenosis of spine M99.89 [facility] [address] [id number] [address] [place] [address] Nov, Neuroforaminal stenosis of s pine M99.89 ; Essential hypertension I10 ; Mixed hyperlipidemia E78.2 ; Hypokalemia E87.6 ; Neck pain M54.2 and Nevus D22.9 [facility] [address] [id number] [address] [place] [address] Oct, Neuroforaminal stenosis of s pine M99.89 [facility] [address] [id number] [address] [place] [address] Sep, Neuroforaminal stenosis of s pine M99.89 [facility] [address] [id number] [address] [place] [phone] Sep, [facility] [address] [id number] [address] [place] [address] August, [facility] [address] [id number] [address] [place] [address] August, Neck pain M54.2 and Neurofor aminal stenosis of spine M99.89 [facility] [address] [id number] [address] [place] [address] August, Routine gynecological examin ation Z01.419 and Screening breast examination Z12.39 [facility] [address] [id number] [address] [place] [address] Jul, [facility] [address] [id number] [address] [place] [address] Jul, [facility] [address] [id number] [address] [place] [address] Jul, Neuroforaminal stenosis of s pine M99.89 [facility] [address] [id number] [address] [place] [address] Jul, [facility] [address] [id number] [address] [place] [address] Jul, Neuroforaminal stenosis of l umbar 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 [facility] [address] [id number] [address] [place] [address] Jul, [facility] [address] [id number] [address] [place] [address] Jul, [facility] [address] [id number] [address] [place] [phone] Jun, Neuroforaminal stenosis of ayla garcia M99.89 [facility] [address] [id number] [address] [place] [address] Jun, Uterine leiomyoma, unspecifi ed location D25.9 and Allergic reaction caused by a drug, initial encounter T78.40XA [facility] [address] [id number] [address] [place] [phone] Jun, [facility] [address] [facility] [id number] [address] [place] [phone] May, UTI symptoms R39.9 and Pain of right sacroiliac joint M53.3 [facility] [address] [id number] [address] [place] [phone] May, Neuroforaminal stenosis of ayla garcia M99.89 [facility] [address] [facility] [id number] [address] [place] [phone] May, [facility] [address] [id number] [address] [place] [address] May, Acute mucoid otitis media of left ear H65.112 and Acute non- recurrent maxillary sinusitis J01.00 [facility] [address] [facility] [id number] [address] [place] [address] May, Acute bacterial conjunctivit is of both eyes H10.33 ; Left arm pain M79.602 and Hypokalemia E87.6 [facility] [address] [id number] [address] [place] [phone] Apr, [facility] [address] [facility] [id number] [address] [place] [address] Apr, Neuroforaminal stenosis of s pine M99.89 ; Neck pain M54.2 ; Chronic pain due to trauma G89.21 ; Mixed hyperlipidemia E78.2 ; Essential hypertension I10 and Hypokalemia E87.6 [facility] [address] [id number] [address] [place] [address] Mar, Oral candidiasis B37.0 ; Nathaniel roforaminal stenosis of spine M99.89 ; Neck pain M54.2 and Chronic pain due to trauma G89.21 [facility] [address] [id number] [address] [place] [phone] Feb, [facility] [address] [id number] [address] [place] [phone] Feb, [facility] [address] [facility] [id number] [address] [place] [phone] Feb, UTI (urinary tract infection ) N39.0 [facility] [address] [facility] [id number] [address] [place] [phone] Feb, Dysuria R30.0 [facility] [address] [facility] [id number] [address] [place] [phone] Feb, Dysuria R30.0 [facility] [address] [id number] [address] [place] [phone] Feb, Neuroforaminal stenosis of s pine M99.89 ; Neck pain M54.2 ; Essential hypertension I10 ; Chronic pain due to trauma G89.21 ; Dysuria R30.0 ; Abnormal MRI, shoulder R93.8 and Acute cystitis without hematuria N30.00 [facility] [address] [id number] [address] [place] [phone] Jan, [facility] [address] [id number] [address] [place] [phone] Jan, [facility] [address] [facility] [id number] [address] [place] [phone] Jan, [facility] [address] [id number] [address] [place] [phone] Jan, Abnormal MRI R93.8 [facility] [address] [id number] [address] [place] [phone] 29 Dec, 2015 [facility] [address] [id number] [address] [place] [phone] 15 Dec, 2015 Acute pain of left shoulder M25.512 [facility] [address] [id number] [address] [place] [phone] 09 Dec, 2015 [facility] [address] [id number] [address] [place] [phone] 08 Dec, 2015 [facility] [address] [id number] [address] [place] [phone] 07 Dec, 2015 Acute pain of left shoulder M25.512 [facility] [address] [id number] [address] [place] [phone] Nov, [facility] [address] [id number] [address] [place] [phone] 16 Nov, 2015 Neuro[facility] stenosis of s pine M99.89 ; Neck pain M54.2 ; Abnormal mammogram R92.8 ; Essential hypertension I10 and Chronic pain due to trauma G89.21 [facility] [address] [id number] [address] [place] [id number] Nov, [facility] [address] [id number] [address] [place] [phone] Oct, Acute stress disorder F43.0 [facility] [address] [id number] [address] [place] [phone] Oct, [facility] [address] [id number] [address] [place] [phone] Oct, [facility] [address] [id number] [address] [place] [phone] Oct, [facility] [address] [id number] [address] [place] [phone] Sep, [facility] [address] [id number] [address] [place] [phone] August, [facility] [address] [id number] [address] [place] [id number] Jul, Neuroforaminal stenosis of s pine M99.89 ; Neck pain M54.2 ; Abnormal mammogram R92.8 and Essential hypertension I10 [facility] [address] [id number] [address] [place] [phone] Jul, [facility] [address] [id number] [address] [place] [phone] Jul, [facility] [address] [facility] [id number] [address] [place] [phone] Jul, Abnormal mammogram R92.8 [facility] [address] [id number] [address] [place] [phone] Jul, [facility] [address] [id number] [address] [place] [phone] Jul, UTI (urinary tract infection ) N39.0 [facility] [address] [facility] [id number] [address] [place] [phone] Jul, Dysuria R30.0 [facility] [address] [id number] [address] [place] [phone] Jun, [facility] [address] [id number] [address] [place] [phone] Jun, [facility] [address] [id number] [address] [place] [phone] Jun, Hypokalemia E87.6 and Hematu martina R31.9 [facility] [address] [id number] [address] [place] [phone] Jun, Hypokalemia E87.6 [facility] [address] [id number] [address] [place] [phone] Jun, [place] [address] [address] Jun, Hypokalemia E87.6 [place] [address] [address] Jun, Hypokalemia E87.6 [place] [address] [address] Jun, Neuroforaminal stenosis of s pine M99.89 ; Hypokalemia E87.6 ; Neck pain M54.2 ; Essential hypertension I10 ; Mixed hyperlipidemia E78.2 and Screening breast examination Z12.39 [place] [address] [address] Jun, Dysuria R30.0 ; UTI (urinary tract infection) N39.0 and Hematuria R31.9 [place] [address] [id number] May, [place] [address] [id number] 18 May, 2015 High risk sexual behavior Z7 2.51 ; Hypokalemia E87.6 ; Neuroforaminal stenosis of spine M99.89 ; Neck pain M54.2 ; Essential hypertension I10 ; Mixed hyperlipidemia E78.2 ; STD exposure Z20.2 and Concern about STD in female without diagnosis Z71.1 [place] [address] [id number] 16 May, 2015 Neuroforaminal stenosis of s pine M99.89 ; Neck pain M54.2 ; Hypokalemia E87.6 ; Essential hypertension I10 and Mixed hyperlipidemia E78.2 [place] [address] [address] May, [facility] [address] [id number] 08 May, 2015 High risk sexual behavior Z7 2.51 ; STD exposure Z20.2 and Concern about STD in female without diagnosis Z71.1 [place] [address] [address] 05 May, 2015 [place] [address] [place] [id number] [address] [place] [address] Apr, Neuroforaminal stenosis of s jose M99.89 ; Mixed hyperlipidemia E78.2 ; Essential hypertension I10 and Hypokalemia E87.6 [place] [address] [place] [id number] [address] [place] [address] Mar, [place] [address] [address] Mar, Hypokalemia E87.6 [place] [address] [address] Mar, Neuroforaminal stenosis of s jose M99.89 ; Mixed hyperlipidemia E78.2 ; Neck pain M54.2 ; Essential hypertension I10 ; Abnormal fasting glucose R73.09 ; Hypokalemia E87.6 and Constipation K59.00 [place] [address] [address] Feb, Neuroforaminal stenosis of s jose M99.89 ; Mixed hyperlipidemia E78.2 ; Neck pain M54.2 ; Essential hypertension I10 ; Abnormal fasting glucose R73.09 ; Hypokalemia E87.6 and Constipation K59.00 [place] [id number] [place] [address] Feb, Elevated fasting blood sugar R73.01 [place] [address] [address] Feb, Elevated fasting blood sugar R73.01 [place] [address] [address] Feb, Hair loss L65.9 [place] [address] [place] [id number] [address] [place] [address] Feb, Sinusitis J32.9 ; Essential hypertension I10 and Hair loss L65.9 [facility] [address] [id number] [address] [place] [address] Jan, [facility] [address] [id number] [address] [place] [phone] Jan, Essential hypertension I10 ; Neuroforaminal stenosis of spine M99.89 ; Neck pain M54.2 ; Mixed hyperlipidemia E78.2 and Anxiety F41.9 [place] [address] [id number] [address] [place] [address] Jan, [place] [address] [id number] [address] [place] [address] Jan, Mixed hyperlipidemia E78.2 ; Essential (primary) hypertension I10 ; Strain of muscle, fascia and tendon at neck level, subsequent encounter S16.1XXD and Tension-type headache, unspecified, not intractable G44.209 [place] [address] [id number] [address] [place] [address] Dec, Lumbar back pain 724.2 and N euroforaminal stenosis of spine 724.00 [place] [address] [id number] [address] [place] [address] Nov, [place] [address] [id number] [address] [place] [phone] Nov, Lumbar back pain 724.2 and N euroforaminal stenosis of spine 724.00 [place] [address] [id number] [address] [place] [address] Nov, Edema 782.3 ; Lumbar back pa in 724.2 ; Essential hypertension, benign 401.1 ; Hyperlipemia 272.4 ; Neuroforaminal stenosis of spine 724.00 and Post-concussion headache 339.20 [place] [address] [id number] [address] [place] [address] Nov, [facility] [address] [id number] [address] [place] [phone] Nov, [facility] [address] [id number] [address] [place] [address] Oct, Essential hypertension, sheridan gn 401.1 [facility] [address] [id number] [address] [place] [address] Oct, Edema 782.3 ; Lumbar back pa in 724.2 ; Essential hypertension, benign 401.1 ; Hyperlipemia 272.4 ; Neuroforaminal stenosis of spine 724.00 and Post-concussion headache 339.20 [facility] [address] [id number] [address] [place] [phone] Oct, [facility] [address] [id number] [address] [place] [phone] Oct, Edema 782.3 [facility] [address] [id number] [address] [place] [address] Oct, Lumbar back pain 724.2 [place] [address] [id number] [address] [place] [address] Oct, Cervicalgia 723.1 ; Lumbar b ack pain 724.2 and High risk medication use V58.69 [facility] [address] [id number] [address] [place] [address] Sep, [facility] [address] [id number] [address] [place] [address] Sep, Lumbar strain 847.2 [facility] [address] [id number] [address] [place] [address] August, Edema 782.3 and Eustachian t ube dysfunction 381.81 [facility] [address] [id number] [address] [place] [phone] August, [facility] [address] [facility] [id number] [address] [place] [address] August, Eustachian tube dysfunction 381.81 [facility] [address] [id number] [address] [place] [address] Jul, Otalgia 388.70 and Otitis me jonathon 382.9 [facility] [address] [id number] [address] [place] [phone] Jul, [facility] [address] [id number] [address] [place] [phone] Jul, [facility] [address] [id number] [address] [place] [phone] Jul, [facility] [address] [id number] [address] [place] [phone] Jul, [facility] [address] [id number] [address] [place] [phone] Jul, [facility] [address] [id number] [address] [place] [phone] Jun, [facility] [address] [id number] [address] [place] [phone] Jun, [facility] [address] [id number] [address] [place] [phone] Jun, [facility] [address] [id number] [address] [place] [phone] May, [facility] [address] [id number] [address] [place] [phone] May, [facility] [address] [id number] [address] [place] [phone] May, [facility] [address] [id number] [address] [place] [phone] May, [facility] [address] [id number] [address] [place] [phone] May, [facility] [address] [id number] [address] [place] [phone] May, [facility] [address] [id number] [address] [place] [address], [place] [id number] May, [facility] [address] [id number] [address] [place] [address], [place] [id number] May, [facility] [address] [id number] [address] [place] [address], [place] [id number] May, [facility] [address] [id number] [address] [place] [address], [place] [id number] May, [facility] [address] [id number] [address] [place] [address], [place] [id number] Apr, [facility] [address] [id number] [address] [place] [address], [place] [id number] Apr, [facility] [address] [id number] [address] [place] [address], [place] [id number] Apr, [facility] [address] [id number] [address] [place] [address], [place] [id number] Apr, [facility] [address] [id number] [address] [place] [address], [place] [id number] Apr, [facility] [address] [id number] [address] [place] [address], [place] [id number] Apr, [facility] [address] [id number] [address] [place] [address], [place] [id number] Apr, [facility] [address] [id number] [address] [place] [address], [place] [id number] Apr, [facility] [address] [id number] [address] [place] [address], [place] [id number] Apr, [facility] [address] [id number] [address] [place] [address], [place] [id number] Apr, [facility] [address] [id number] [address] [place] [address], [place] [id number] Apr, [facility] [address] [id number] [address] [place] [address], [place] [id number] Apr, [facility] [address] [id number] [address] [place] [address], [place] [id number] Apr, [facility] [address] [id number] [address] [place] [address], [place] [id number] Apr, [facility] [address] [id number] [address] [place] [address], [place] [id number] Apr, [facility] [address] [id number] [address] [place] [address], [place] [id number] Mar, [facility] [address] [id number] [address] [place] [address], [place] [id number] Mar, [facility] [address] [id number] [address] [place] [address], [place] [id number] Mar, [facility] [address] [id number] [address] [place] [address], [place] [id number] Mar, [facility] [address] [id number] [address] [place] [address], [place] [id number] Feb, [facility] [address] [id number] [address] [place] [address], [place] [id number] Feb, [facility] [address] [id number] [address] [place] [address], [place] [id number] Feb, [facility] [address] [id number] [address] [place] [address], [place] [id number] Feb, [facility] [address] [id number] [address] [place] [address], [place] [id number] Jan, [facility] [address] [id number] [address] [place] [address], [place] [id number] Jan, [facility] [address] [id number] [address] [place] [address], [place] [id number] Jan, [facility] [address] [id number] [address] [place] [address], [place] [id number] Jan, [facility] [address] [id number] [address] [place] [address], [place] [id number] Jan, [facility] [address] [id number] [address] [place] [address], [place] [id number] Jan, [facility] [address] [id number] [address] [place] [address], [place] [id number] Jan, [facility] [address] [id number] [address] [place] [address], [place] [id number] Jan, [facility] [address] [id number] [address] [place] [address], [place] [id number] Dec, [facility] [address] [id number] [address] [place] [address], [place] [id number] Dec, [facility] [address] [id number] [address] [place] [address], [place] [id number] Dec, [facility] [address] [id number] [address] [place] [address], [place] [id number] Dec, [facility] [address] [id number] [address] [place] [address], [place] [id number] Oct, [facility] [address] [id number] [address] [place] [address], [place] [id number] Oct, [facility] [address] [id number] [address] [place] [address], [place] [id number] Oct, [facility] [address] [id number] [address] [place] [address], [place] [id number] Oct, [facility] [address] [id number] [address] [place] [address], [place] [id number] Oct, [facility] [address] [id number] [address] [place] [address], [place] [id number] Oct, [facility] [address] [id number] [address] [place] [address], [place] [id number] Oct, [facility] [address] [id number] [facility] [place] [id number] Oct, [facility] [address] [id number] [address] [place] [address], [place] [id number] Sep, [facility] [address] [id number] [facility] [place] [id number] Sep, [facility] [address] [id number] [address] [place] [address], [place] [id number] Sep, [facility] [address] [id number] [address] [place] [address], [place] [id number] Sep, [facility] [address] [id number] [address] [place] [address], [place] [id number] Sep, [facility] [address] [id number] [address] [place] [address], [place] [id number] Sep, [facility] [address] [id number] [address] [place] [address], [place] [id number] Sep, [facility] [address] [id number] [address] [place] [address], [place] [id number] Sep, [facility] [address] [id number] [address] [place] [address], [place] [id number] Sep, [facility] [address] [id number] [address] [place] [address], [place] [id number] Sep, [facility] [address] [id number] [address] [place] [address], [place] [id number] August, [facility] [address] [id number] [address] [place] [address], [place] [id number] August, [facility] [address] [id number] [address] [place] [address], [place] [id number] August, [facility] [address] [id number] [address] [place] [address], [place] [id number] August, [facility] [address] [id number] [address] [place] [address], [place] [id number] August, [facility] [address] [id number] [address] [place] [address], [place] [id number] August, [facility] [address] [id number] [address] [place] [address], [place] [id number] August, [facility] [address] [id number] [address] [place] [address], [place] [id number] August, [facility] [address] [id number] [address] [place] [address], [place] [id number] August, [facility] [address] [id number] [address] [place] [address], [place] [id number] August, [facility] [address] [id number] [address] [place] [address], [place] [id number] August, [facility] [address] [id number] [address] [place] [address], [place] [id number] August, [facility] [address] [id number] [address] [place] [address], [place] [id number] Jul, [facility] [address] [id number] [address] [place] [address], [place] [id number] Jul, [facility] [address] [id number] [address] [place] [address], [place] [id number] Jul, [facility] [address] [id number] [address] [place] [address], [place] [id number] Jul, [facility] [address] [id number] [address] [place] [address], [place] [id number] Jul, [facility] [address] [id number] [address] [place] [address], [place] [id number] Jul, [facility] [address] [id number] [address] [place] [address], [place] [id number] Jun, [facility] [address] [id number] [address] [place] [address], [place] [id number] Jun, [facility] [address] [id number] [address] [place] [id number] 10 May, 2013 [facility] [address] [id number] [address] [place] [address], [place] [id number] May, [facility] [address] [id number] [address] [place] [address], [place] [id number] Apr, [facility] [address] [id number] [address] [place] [address], [place] [id number] Apr, [facility] [address] [id number] [address] [place] [address], [place] [id number] Apr, [facility] [address] [id number] [address] [place] [address], [place] [id number] Apr, [facility] [address] [id number] [address] [place] [address], [place] [id number] Apr, [facility] [address] [id number] [address] [place] [address], [place] [id number] Apr, [facility] [address] [id number] [address] [place] [address], [place] [id number] Apr, [facility] [address] [id number] [address] [place] [address], [place] [id number] Apr, [facility] [address] [id number] [address] [place] [address], [place] [id number] Apr, [facility] [address] [id number] [address] [place] [address], [place] [id number] Apr, [facility] [address] [id number] [address] [place] [address], [place] [id number] Apr, [facility] [address] [id number] [address] [place] [address], [place] [id number] Apr, [facility] [address] [id number] [address] [place] [address], [place] [id number] Apr, [facility] [address] [id number] [address] [place] [address], [place] [id number] Mar, [facility] [address] [id number] [address] [place] [address], [place] [id number] Mar, [facility] [address] [id number] [address] [place] [address], [place] [id number] Mar, [facility] [address] [id number] [address] [place] [address], [place] [id number] Mar, [facility] [address] [id number] [address] [place] [address], [place] [id number] Feb, [facility] [address] [id number] [address] [place] [address], [place] [id number] Feb, [facility] [address] [id number] [address] [place] [address], [place] [id number] Feb, [facility] [address] [id number] [address] [place] [address], [place] [id number] Feb, [facility] [address] [id number] [address] [place] [address], [place] [id number] Jan, [facility] [address] [id number] [address] [place] [address], [place] [id number] Jan, [facility] [address] [id number] [address] [place] [address], [place] [id number] Jan, [facility] [address] [id number] [address] [place] [address], [place] [id number] Jan, [facility] [address] [id number] [address] [place] [address], [place] [id number] Jan, [facility] [address] [id number] [address] [place] [address], [place] [id number] Jan, [facility] [address] [id number] [address] [place] [address], [place] [id number] Jan, [facility] [address] [id number] [address] [place] [id number] Jan, [facility] [address] [id number] [address] [place] [phone] Jan, [facility] [address] [id number] [address] [place] [address], [place] [id number] 26 Dec, 2012 [facility] [address] [id number] [address] [place] [address], [place] [id number] 16 Dec, 2012 [facility] [address] [id number] [address] [place] [address], [place] [id number] 16 Dec, 2012 [facility] [address] [id number] [address] [place] [address], [place] [id number] 13 Dec, 2012 [facility] [address] [id number] [address] [place] [address], [place] [id number] Nov, [facility] [address] [id number] [address] [place] [address], [place] [id number] Nov, [facility] [address] [id number] [address] [place] [address], [place] [id number] Nov, [facility] [address] [id number] [address] [place] [address], [place] [id number] Nov, [facility] [address] [id number] [address] [place] [address], [place] [id number] Oct, [facility] [address] [id number] [address] [place] [address], [place] [id number] Sep, [facility] [address] [id number] [address] [place] [address], [place] [id number] August, [facility] [address] [id number] [address] [place] [address], [place] [id number] August, [facility] [address] [id number] [address] [place] [address], [place] [id number] August, [facility] [address] [id number] [address] [place] [address], [place] [id number] August, [facility] [address] [id number] [address] [place] [address], [place] [id number] August, [facility] [address] [id number] [address] [place] [address], [place] [id number] 14 Aug, 2012 [facility] [address] [id number] [address] [place] [address], [place] [id number] August, [facility] [address] [id number] [address] [place] [address], [place] [id number] August, [facility] [address] [id number] [address] [place] [address], [place] [id number] August, [facility] [address] [id number] [address] [place] [address], [place] [phone] August, [facility] [address] [id number] [address] [place] [address], [place] [id number] August, [facility] [address] [id number] [address] [place] [address], [place] [id number] August, [facility] [address] [id number] [address] [place] [address], [place] [id number] Jul, [facility] [address] [id number] [address] [place] [address], [place] [id number] Jul, [facility] [address] [id number] [address] [place] [address], [place] [id number] 18 Jul, 2012 [facility] [address] [id number] [address] [place] [address], [place] [id number] 15 Jul, 2012 [facility] [address] [id number] [address] [place] [address], [place] [id number] Jul, [facility] [address] [id number] [address] [place] [address], [place] [id number] Jul, [facility] [address] [id number] [address] [place] [address], [place] [id number] 04 Jul, 2012 [facility] [address] [id number] [address] [place] [address], [place] [id number] Jul, [facility] [address] [id number] [address] [place] [address], [place] [id number] Jul, [facility] [address] [id number] [address] [place] [address], [place] [id number] Jul, [facility] [address] [id number] [address] [place] [address], [place] [id number] Jul, [facility] [address] [id number] [address] [place] [address], [place] [id number] Jun, [facility] [address] [id number] [address] [place] [address], [place] [id number] Jun, [facility] [address] [id number] [address] [place] [address], [place] [id number] Jun, [facility] [address] [id number] [address] [place] [address], [place] [id number] Jun, [facility] [address] [id number] [address] [place] [address], [place] [id number] May, [facility] [address] [id number] [address] [place] [address], [place] [id number] 14 May, 2012 [facility] [address] [id number] [address] [place] [address], [place] [id number] May, [facility] [address] [id number] [address] [place] [address], [place] [id number] May, [facility] [address] [id number] [address] [place] [address], [place] [id number] May, [facility] [address] [id number] [address] [place] [address], [place] [phone] May, [facility] [address] [id number] [address] [place] [address], [place] [id number] Apr, [facility] [address] [id number] [address] [place] [address], [place] [id number] Apr, [facility] [address] [id number] [address] [place] [address], [place] [id number] Apr, [facility] [address] [id number] [address] [place] [address], [place] [id number] 28 Apr, 2012 [facility] [address] [id number] [address] [place] [address], [place] [id number] 15 Mar, 2012 [facility] [address] [id number] [address] [place] [address], [place] [id number] 14 Mar, 2012 [facility] [address] [id number] [address] [place] [address], [place] [id number] 14 Mar, 2012 [facility] [address] [id number] [address] [place] [address], [place] [id number] 14 Mar, 2012 [facility] [address] [id number] [address] [place] [address], [place] [id number] 14 Mar, 2012 [facility] [address] [id number] [address] [place] [address], [place] [id number] 06 Mar, 2012 [facility] [address] [id number] [address] [place] [address], [place] [id number] Mar, [facility] [address] [id number] [address] [place] [address], [place] [id number] Feb, [facility] [address] [id number] [address] [place] [address], [place] [id number] Feb, [facility] [address] [id number] [address] [place] [address], [place] [id number] Feb, [facility] [address] [id number] [address] [place] [address], [place] [id number] Feb, [facility] [address] [id number] [address] [place] [address], [place] [id number] Jan, [facility] [address] [id number] [address] [place] [address], [place] [id number] Jan, [facility] [address] [id number] [address] [place] [address], [place] [id number] Jan, [facility] [address] [id number] [address] [place] [address], [place] [id number] 10 Jan, 2012 [facility] [address] [id number] [address] [place] [address], [place] [id number] Jan, [facility] [address] [id number] [address] [place] [address], [place] [id number] Jan, [facility] [address] [id number] [address] [place] [address], [place] [id number] Dec, [facility] [address] [id number] [address] [place] [address], [place] [id number] Dec, [facility] [address] [id number] [address] [place] [address], [place] [id number] Nov, [facility] [address] [id number] [address] [place] [address], [place] [id number] Sep, [facility] [address] [id number] [address] [place] [address], [place] [id number] August, [facility] [address] [id number] [address] [place] [address], [place] [id number] August, [facility] [address] [id number] [address] [place] [address], [place] [id number] August, [facility] [address] [id number] [address] [place] [address], [place] [id number] August, [facility] [address] [id number] [address] [place] [address], [place] [id number] August, [facility] [address] [id number] [address] [place] [address], [place] [phone] Jun, [facility] [address] [id number] [address] [place] [address], [place] [id number] Jun, [facility] [address] [id number] [address] [place] [address], [place] [id number] Apr, [facility] [address] [id number] [address] [place] [address], [place] [id number] Apr, [facility] [address] [id number] [place] [address] Mar, [facility] [address] [id number] [address] [place] [phone] Feb, [facility] [address] [id number] [address] [place] [phone] 14 Feb, 2011 [facility] [address] [id number] [address] [place] [phone] 14 Feb, 2011 [facility] [address] [id number] [address] [place] [phone] 17 Jan, 2011 [facility] [address] [id number] [address] [place] [phone] 15 Jan, 2011 [facility] [address] [id number] [address] [place] [id number] 15 Jan, 2011 [facility] [address] [id number] [address] [place] [id number] 14 Jan, 2011 [facility] [address] [id number] [address] [place] [phone] 15 May, 2010 [facility] [address] [id number] [address] [place] [phone] Mar, [facility] [address] [id number] [address] [place] [phone] Oct, [facility] [address] [id number] [address] [place] [phone] Sep, [facility] [address] [id number] [address] [place] [phone] Mar, [facility] [address] [id number] [address] [place] [phone] Jan, [facility] [address] [id number] [address] [place] [phone] Jan, [facility] [address] [id number] [address] [place] [phone] May, IMMUNIZATIONS No Known Immunizations SOCIAL HISTORY [...]
--- OUTSIDE RECORDS SUMMARY | 2019-11-23 05:57 | XMS REPORT ---
Author Author Liana Coe Doctor Organization [facility] Address Unknown Phone Unavailable Care Team Providers Care Motor Vehicle Salesperson Name Role Phone Migration, Doctor Unavailable Unavailable PROBLEMS Type Condition ICD9-CM Code OIW56-[place] Code Onset Dates Condition S tatus SNOMED Code Problem Hematuria, unspecified type R31.9 Ac tive 80526889 Problem Abnormal renal ultrasound R93.429 Acti ve [id number] Problem Anxiety F41.9 Active 93782243 Problem Hypokalemia E87.6 Active 90749180 Problem Abnormal glucose R73.09 Active 102 624674 Problem Chronic pain due to trauma G89.21 Act juanis [id number] Problem Neuroforaminal stenosis of spine M99.89 Active [id number] Problem Neck pain M54.2 Active 05079857 Problem Essential hypertension I10 Active 53646908 Problem Mixed hyperlipidemia E78.2 Active 98182009 ALLERGIES No Information ENCOUNTERS Encounter Location Date Diagnosis [place] [address] [id number] Nov, Neuroforaminal stenosis of s pine M99.89 [facility] [address] [place] [id number] [address] [place] [address] Nov, Acute non-recurrent maxillar y sinusitis J01.00 [facility] [address] [place] [id number] [address] [place] [address] Oct, Hypokalemia E87.6 [facility] [address] [facility] [id number] [address] [place] [address] Oct, Wasp sting, undetermined int ent, initial encounter T63.464A and Cellulitis of left lower extremity L03.116 [facility] [address] [place] [id number] [address] [place] [address] Oct, Neuroforaminal stenosis of s pine M99.89 [facility] [address] [facility] [id number] [address] [place] [address] Sep, [place] [address] [facility] [id number] [address] [place] [address] Sep, [facility] [address] [facility] [id number] [address] [place] [address] 18 Sep, 2018 Routine screening for STI (s exually transmitted infection) Z11.3 [place] [address] [facility] [id number] [address] [place] [address] 14 Sep, 2018 Routine screening for STI (s exually transmitted infection) Z11.3 ; Well woman exam with routine gynecological exam Z01.419 and Breast cancer screening Z12.39 [place] [address] [facility] [id number] [address] [place] [phone] 10 Sep, 2018 Neuroforaminal stenosis of s pine M99.89 [place] [address] [facility] [id number] [address] [place] [address] August, Neuroforaminal stenosis of s pine M99.89 [place] [address] [facility] [id number] [address] [place] [address] August, Neuroforaminal stenosis of s pine M99.89 ; Chronic pain due to trauma G89.21 and Mixed hyperlipidemia E78.2 [place] [address] [facility] [id number] [address] [place] [phone] Jul, Viral upper respiratory illn ess J06.9 and Acute non-recurrent frontal sinusitis J01.10 [place] [address] [facility] [id number] [address] [place] [id number] Jul, Congestion of nasal sinus R0 9.81 [place] [address] [facility] [id number] [address] [place] [address] Jul, Neuroforaminal stenosis of s pine M99.89 and Essential hypertension I10 [place] [address] [facility] [id number] [address] [place] [address] May, Neuroforaminal stenosis of s pine M99.89 [facility] [address] [id number] [address] [place] [address] May, [facility] [address] [id number] [address] [place] [address] May, Congestion of nasal sinus R0 9.81 [facility] [address] [id number] [address] [place] [address] May, [facility] [address] [id number] [address] [place] [address] Apr, Neuroforaminal stenosis of s pine M99.89 [facility] [address] [id number] [address] [place] [address] Apr, Neuroforaminal stenosis of s pine M99.89 and Chronic pain due to trauma G89.21 [facility] [address] [facility] [id number] [address] [place] [address] Mar, UTI (urinary tract infection ) N39.0 [facility] [address] [facility] [id number] [address] [place] [address] Mar, Vertigo R42 [facility] [address] [facility] [id number] [address] [place] [address] Mar, Neuroforaminal stenosis of s pine M99.89 [facility] [address] [facility] [id number] [address] [place] [address] Feb, Extensor tendon disruption M 67.89 [facility] [address] [id number] [address] [place] [address] Feb, Neuroforaminal stenosis of s pine M99.89 and High risk medication use Z79.899 [facility] [address] [facility] [id number] [address] [place] [address] Jan, Hypokalemia E87.6 [facility] [address] [facility] [id number] [address] [place] [address] Jan, Flank pain R10.9 and Acute r ight-sided low back pain without sciatica M54.5 [place] [address] [address] Jan, Hypokalemia E87.6 [place] [address] [place] [id number] [place] [address] Jan, [place] [address] [address] Jan, URI, acute J06.9 [place] [address] [address] Jan, Neuroforaminal stenosis of s pine M99.89 [place] [address] [address] 13 Dec, 2017 Lateral epicondylitis, right elbow M77.11 [place] [address] [address] 11 Dec, 2017 Allergic rhinitis due to monica rosalina, unspecified seasonality J30.1 and Allergic conjunctivitis of both eyes H10.13 [place] [address] [address] 10 Dec, 2017 Neuroforaminal stenosis of s pine M99.89 [place] [address] [address] Dec, Mixed hyperlipidemia E78.2 [place] [address] [address] 05 Dec, 2017 Abnormal glucose R73.09 ; Ab normal renal ultrasound R93.429 ; Dysuria R30.0 ; Cystitis without hematuria N30.90 ; Hypokalemia E87.6 ; Mixed hyperlipidemia E78.2 and Hematuria, unspecified type R31.9 [place] [address] [place] [id number] [address] [place] [address] Nov, Hypokalemia E87.6 ; Mixed hy perlipidemia E78.2 and Hematuria, unspecified type R31.9 [facility] [address] [id number] [address] [place] [address] Nov, [facility] [address] [id number] [address] [place] [address] Nov, Hypokalemia E87.6 [facility] [address] [id number] [address] [place] [address] Nov, [facility] [address] [id number] [address] [place] [address] Nov, Abnormal renal ultrasound R9 3.429 [place] [address] [id number] [address] [place] [address] Nov, Abnormal renal ultrasound R9 3.429 [place] [address] [id number] [address] [place] [address] Nov, Hematuria, unspecified type R31.9 and Neuroforaminal stenosis of spine M99.89 [place] [address] [id number] [address] [place] [address] Nov, Dysuria R30.0 [place] [address] [id number] [address] [place] [address] Oct, Lateral epicondylitis, right elbow M77.11 [place] [address] [id number] [address] [place] [address] Oct, Neuroforaminal stenosis of s pine M99.89 ; Visit for TB skin test Z11.1 and Essential hypertension I10 [facility] [address] [id number] [address] [place] [address] Oct, [facility] [address] [id number] [address] [place] [address] Oct, Neuroforaminal stenosis of s pine M99.89 [facility] [address] [id number] [address] [place] [address] 10 Jarred, 2018 Visit for TB skin test Z11.1 [place] [address] [id number] [address] [place] [address] 05 Oct, 2017 Cystitis without hematuria N 30.90 [place] [address] [id number] [address] [place] [address] 28 Sep, 2017 Screening breast examination Z12.39 [place] [address] [id number] [address] [place] [address] 26 Sep, 2017 Dysuria R30.0 and Cystitis w ithout hematuria N30.90 [place] [address] [id number] [address] [place] [address] 14 Sep, 2017 Essential hypertension I10 a nd Neuroforaminal stenosis of spine M99.89 [place] [address] [id number] [address] [place] [address] 04 Sep, 2017 Abnormal glucose R73.09 [place] [address] [id number] [address] [place] [address] August, Lateral epicondylitis, right elbow M77.11 [place] [address] [id number] [address] [place] [address] August, Screen for STD (sexually tra nsmitted disease) Z11.3 [place] [address] [facility] [id number] [address] [place] [address] August, Neuroforaminal stenosis of s pine M99.89 ; Mixed hyperlipidemia E78.2 ; Elevated fasting glucose R73.01 ; Screening mammogram, encounter for Z12.31 and Encounter for well woman exam without gynecological exam Z00.00 [place] [address] [id number] [address] [place] [address] August, Neuroforaminal stenosis of s pine M99.89 [place] [address] [id number] [address] [place] [address] August, Essential hypertension I10 ; Hypokalemia E87.6 and Mixed hyperlipidemia E78.2 [place] [address] [id number] [address] [place] [address] Jul, [facility] [address] [id number] [address] [place] [address] Jul, Neuroforaminal stenosis of s jose M99.89 [facility] [address] [id number] [address] [place] [address] Jul, Lateral epicondylitis, right elbow M77.11 [facility] [address] [id number] [address] [place] [address] Jul, [facility] [address] [id number] [address] [place] [address] Jun, High ankle sprain of right l ower extremity, initial encounter S93.431A [facility] [address] [id number] [address] [place] [address] Jun, Essential hypertension I10 [facility] [address] [id number] [address] [place] [address] Jun, [facility] [address] [id number] [address] [place] [address] Jun, [facility] [address] [id number] [address] [place] [address] Jun, Neuroforaminal stenosis of s jose M99.89 [facility] [address] [id number] [address] [place] [address] Jun, Pain of right upper extremit y M79.601 and Essential hypertension I10 [facility] [address] [id number] [address] [place] [address] Jun, [facility] [address] [facility] [id number] [address] [place] [address] Jun, Dysuria R30.0 ; Acute cystit is with hematuria N30.01 and Screen for STD (sexually transmitted disease) Z11.3 [facility] [address] [id number] [address] [place] [address] May, Chronic pain due to trauma G 89.21 [place] [address] [facility] [id number] [address] [place] [address] May, Essential hypertension I10 [place] [address] [facility] [id number] [address] [place] [address] May, Neuroforaminal stenosis of s pine M99.89 [place] [address] [place] [id number] [address] [place] [address] Apr, Allergic reaction, initial e ncounter T78.40XA [place] [address] [address] Apr, Low back pain, unspecified b ack pain laterality, unspecified chronicity, with sciatica presence unspecified M54.5 ; Acute cystitis with hematuria N30.01 ; Neuroforaminal stenosis of spine M99.89 ; Bilateral acute serous otitis media, recurrence not specified H65.03 ; Mixed hyperlipidemia E78.2 ; Essential hypertension I10 ; Immunization counseling Z71.89 and Encounter for immunization Z23 [place] [address] [address] Apr, Neck pain M54.2 [place] [address] [place] [id number] [address] [place] [address] Mar, Neuroforaminal stenosis of s pine M99.89 [place] [address] [place] [id number] [address] [place] [address] Mar, Pharyngitis due to other org anism J02.8 [place] [address] [place] [id number] [address] [place] [address] Feb, Neuroforaminal stenosis of s pine M99.89 [place] [address] [place] [id number] [address] [place] [address] 08 Feb, 2017 UTI (urinary tract infection ) N39.0 [place] [address] [place] [id number] [address] [place] [address] Feb, Recent urinary tract infecti on Z87.440 ; Neuroforaminal stenosis of spine M99.89 ; Neck pain M54.2 ; Chronic pain due to trauma G89.21 and Recurrent UTI N39.0 [facility] [address] [id number] [address] [place] [address] Feb, [facility] [address] [id number] [address] [place] [address] Jan, Neuroforaminal stenosis of s pine M99.89 [facility] [address] [id number] [address] [place] [address] Dec, Neuroforaminal stenosis of s pine M99.89 [facility] [address] [id number] [address] [place] [address] 18 Dec, 2016 Acute seasonal allergic rhin itis due to pollen J30.1 [facility] [address] [id number] [address] [place] [address] 08 Dec, 2016 [facility] [address] [id number] [address] [place] [address] 08 Dec, 2016 Acute seasonal allergic rhin itis, unspecified trigger J30.2 ; Allergic conjunctivitis of both eyes H10.13 and Dysfunction of both eustachian tubes H69.83 [facility] [address] [id number] [address] [place] [address] 07 Dec, 2016 [facility] [address] [id number] [address] [place] [address] Dec, Nevus D22.9 [facility] [address] [id number] [address] [place] [address] Nov, Chronic pain due to trauma G 89.21 and Neuroforaminal stenosis of spine M99.89 [facility] [address] [id number] [address] [place] [address] Nov, Neuroforaminal stenosis of s pine M99.89 ; Essential hypertension I10 ; Mixed hyperlipidemia E78.2 ; Hypokalemia E87.6 ; Neck pain M54.2 and Nevus D22.9 [facility] [address] [id number] [address] [place] [address] Oct, Neuroforaminal stenosis of s pine M99.89 [facility] [address] [id number] [address] [place] [address] Sep, Neuroforaminal stenosis of s pine M99.89 [facility] [address] [id number] [address] [place] [address] Sep, [facility] [address] [id number] [address] [place] [address] August, [facility] [address] [id number] [address] [place] [address] August, Neck pain M54.2 and Neurofor aminal stenosis of spine M99.89 [facility] [address] [id number] [address] [place] [address] August, Routine gynecological examin ation Z01.419 and Screening breast examination Z12.39 [facility] [address] [id number] [address] [place] [address] Jul, [facility] [address] [id number] [address] [place] [address] Jul, [facility] [address] [id number] [address] [place] [address] Jul, Neuroforaminal stenosis of s pine M99.89 [facility] [address] [id number] [address] [place] [address] Jul, [facility] [address] [id number] [address] [place] [address] Jul, Neuroforaminal stenosis of l umbar 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 [facility] [address] [id number] [address] [place] [address] Jul, [facility] [address] [facility] [id number] [address] [place] [address] Jul, [facility] [address] [facility] [id number] [address] [place] [address] Jun, Neuroforaminal stenosis of s jose M99.89 [facility] [address] [place] [id number] [address] [place] [address] Jun, Uterine leiomyoma, unspecifi ed location D25.9 and Allergic reaction caused by a drug, initial encounter T78.40XA [facility] [address] [facility] [id number] [address] [place] [address] Jun, [place] [address] [facility] [id number] [address] [place] [address] May, UTI symptoms R39.9 and Pain of right sacroiliac joint M53.3 [place] [address] [place] [id number] [address] [place] [address] May, Neuroforaminal stenosis of s jose M99.89 [place] [address] [facility] [id number] [address] [place] [address] May, [place] [address] [facility] [id number] [address] [place] [address] May, Acute mucoid otitis media of left ear H65.112 and Acute non- recurrent maxillary sinusitis J01.00 [place] [address] [place] [id number] [address] [place] [address] May, Acute bacterial conjunctivit is of both eyes H10.33 ; Left arm pain M79.602 and Hypokalemia E87.6 [place] [address] [facility] [id number] [address] [place] [address] Apr, [place] [address] [facility] [id number] [address] [place] [address] Apr, Neuroforaminal stenosis of s pine M99.89 ; Neck pain M54.2 ; Chronic pain due to trauma G89.21 ; Mixed hyperlipidemia E78.2 ; Essential hypertension I10 and Hypokalemia E87.6 [facility] [address] [facility] [id number] [address] [place] [address] Mar, Oral candidiasis B37.0 ; Nathaniel roforaminal stenosis of spine M99.89 ; Neck pain M54.2 and Chronic pain due to trauma G89.21 [place] [address] [id number] [address] [place] [address] Feb, [facility] [address] [id number] [address] [place] [address] Feb, [facility] [address] [facility] [id number] [address] [place] [address] Feb, UTI (urinary tract infection ) N39.0 [place] [address] [facility] [id number] [address] [place] [address] Feb, Dysuria R30.0 [place] [address] [facility] [id number] [address] [place] [address] Feb, Dysuria R30.0 [place] [address] [facility] [id number] [address] [place] [address] Feb, Neuroforaminal stenosis of s pine M99.89 ; Neck pain M54.2 ; Essential hypertension I10 ; Chronic pain due to trauma G89.21 ; Dysuria R30.0 ; Abnormal MRI, shoulder R93.8 and Acute cystitis without hematuria N30.00 [facility] [address] [id number] [address] [place] [address] Jan, [facility] [address] [id number] [address] [place] [address] Jan, [facility] [address] [facility] [id number] [address] [place] [address] Jan, [facility] [address] [facility] [id number] [address] [place] [address] Jan, Abnormal MRI R93.8 [facility] [address] [id number] [address] [place] [address] 29 Dec, 2015 [facility] [address] [id number] [address] [place] [address] 15 Dec, 2015 Acute pain of left shoulder M25.512 [facility] [address] [id number] [address] [place] [address] 09 Dec, 2015 [facility] [address] [id number] [address] [place] [address] 08 Dec, 2015 [facility] [address] [id number] [address] [place] [address] 07 Dec, 2015 Acute pain of left shoulder M25.512 [facility] [address] [id number] [address] [place] [address] Nov, [facility] [address] [id number] [address] [place] [address] Nov, Neuroforaminal stenosis of s pine M99.89 ; Neck pain M54.2 ; Abnormal mammogram R92.8 ; Essential hypertension I10 and Chronic pain due to trauma G89.21 [facility] [address] [id number] [address] [place] [address] Nov, [facility] [address] [id number] [address] [place] [address] Oct, Acute stress disorder F43.0 [facility] [address] [id number] [address] [place] [address] Oct, [facility] [address] [id number] [address] [place] [address] Oct, [facility] [address] [id number] [address] [place] [id number] 05 Oct, 2015 [facility] [address] [id number] [address] [place] [address] Sep, [facility] [address] [id number] [address] [place] [id number] August, [facility] [address] [id number] [address] [place] [id number] Jul, Neuroforaminal stenosis of s pine M99.89 ; Neck pain M54.2 ; Abnormal mammogram R92.8 and Essential hypertension I10 [facility] [address] [id number] [address] [place] [id number] Jul, [facility] [address] [id number] [address] [place] [id number] Jul, [facility] [address] [id number] [address] [place] [id number] Jul, Abnormal mammogram R92.8 [facility] [address] [id number] [address] [place] [id number] Jul, [facility] [address] [id number] [address] [place] [id number] Jul, UTI (urinary tract infection ) N39.0 [facility] [address] [id number] [address] [place] [id number] Jul, Dysuria R30.0 [facility] [address] [id number] [address] [place] [id number] Jun, [facility] [address] [id number] [address] [place] [id number] Jun, [facility] [address] [id number] [address] [place] [id number] Jun, Hypokalemia E87.6 and Hematu martina R31.9 [facility] [address] [id number] [address] [place] [id number] Jun, Hypokalemia E87.6 [facility] [address] [id number] [address] [place] [id number] Jun, [facility] [address] [place] [id number] Jun, Hypokalemia E87.6 [facility] [address] [id number] Jun, Hypokalemia E87.6 [place] [address] [place] [address] [id number] [place] [address] 15 Jun, 2015 Neuroforaminal stenosis of s pine M99.89 ; Hypokalemia E87.6 ; Neck pain M54.2 ; Essential hypertension I10 ; Mixed hyperlipidemia E78.2 and Screening breast examination Z12.39 [place] [address] [address] Jun, Dysuria R30.0 ; UTI (urinary tract infection) N39.0 and Hematuria R31.9 [place] [address] [address] May, [facility] [address] [address] 18 May, 2015 High risk sexual behavior Z7 2.51 ; Hypokalemia E87.6 ; Neuroforaminal stenosis of spine M99.89 ; Neck pain M54.2 ; Essential hypertension I10 ; Mixed hyperlipidemia E78.2 ; STD exposure Z20.2 and Concern about STD in female without diagnosis Z71.1 [place] [address] [address] 16 May, 2015 Neuroforaminal stenosis of s pine M99.89 ; Neck pain M54.2 ; Hypokalemia E87.6 ; Essential hypertension I10 and Mixed hyperlipidemia E78.2 [place] [address] [address] 11 May, 2015 [facility] [address] [id number] [address] [place] [address] 08 May, 2015 High risk sexual behavior Z7 2.51 ; STD exposure Z20.2 and Concern about STD in female without diagnosis Z71.1 [place] [address] [address] May, [place] [address] [address] Apr, Neuroforaminal stenosis of s pine M99.89 ; Mixed hyperlipidemia E78.2 ; Essential hypertension I10 and Hypokalemia E87.6 [place] [address] [address] Mar, [place] [address] [address] Mar, Hypokalemia E87.6 [place] [address] [address] Mar, Neuroforaminal stenosis of s pine M99.89 ; Mixed hyperlipidemia E78.2 ; Neck pain M54.2 ; Essential hypertension I10 ; Abnormal fasting glucose R73.09 ; Hypokalemia E87.6 and Constipation K59.00 [place] [address] [address] Feb, Neuroforaminal stenosis of s jose M99.89 ; Mixed hyperlipidemia E78.2 ; Neck pain M54.2 ; Essential hypertension I10 ; Abnormal fasting glucose R73.09 ; Hypokalemia E87.6 and Constipation K59.00 [place] [address] [address] Feb, Elevated fasting blood sugar R73.01 [place] [address] [address] Feb, Elevated fasting blood sugar R73.01 [place] [address] [address] Feb, Hair loss L65.9 [place] [address] [address] Feb, Sinusitis J32.9 ; Essential hypertension I10 and Hair loss L65.9 [place] [address] [id number] [address] [place] [address] Jan, [place] [address] [id number] [address] [place] [address] Jan, Essential hypertension I10 ; Neuroforaminal stenosis of spine M99.89 ; Neck pain M54.2 ; Mixed hyperlipidemia E78.2 and Anxiety F41.9 [place] [address] [id number] [address] [place] [address] Jan, [place] [address] [id number] [address] [place] [address] Jan, Mixed hyperlipidemia E78.2 ; Essential (primary) hypertension I10 ; Strain of muscle, fascia and tendon at neck level, subsequent encounter S16.1XXD and Tension-type headache, unspecified, not intractable G44.209 [place] [address] [id number] [address] [place] [address] Dec, Lumbar back pain 724.2 and N euroforaminal stenosis of spine 724.00 [place] [address] [id number] [address] [place] [address] Nov, [place] [address] [id number] [address] [place] [address] Nov, Lumbar back pain 724.2 and N euroforaminal stenosis of spine 724.00 [place] [address] [id number] [address] [place] [address] Nov, Edema 782.3 ; Lumbar back pa in 724.2 ; Essential hypertension, benign 401.1 ; Hyperlipemia 272.4 ; Neuroforaminal stenosis of spine 724.00 and Post-concussion headache 339.20 [place] [address] [id number] [address] [place] [address] Nov, [place] [address] [facility] [id number] [address] [place] [address] Nov, [facility] [address] [id number] [address] [place] [address] Oct, Essential hypertension, sheridan gn 401.1 [facility] [address] [id number] [address] [place] [address] Oct, Edema 782.3 ; Lumbar back pa in 724.2 ; Essential hypertension, benign 401.1 ; Hyperlipemia 272.4 ; Neuroforaminal stenosis of spine 724.00 and Post-concussion headache 339.20 [place] [address] [id number] [address] [place] [address] Oct, [place] [address] [facility] [id number] [address] [place] [address] Oct, Edema 782.3 [place] [address] [facility] [id number] [place] [address] Oct, Lumbar back pain 724.2 [place] [address] [facility] [id number] [address] [place] [address] Oct, Cervicalgia 723.1 ; Lumbar b ack pain 724.2 and High risk medication use V58.69 [place] [address] [facility] [id number] [address] [place] [address] Sep, [place] [address] [facility] [id number] [address] [place] [address] Sep, Lumbar strain 847.2 [place] [address] [facility] [id number] [address] [place] [address] August, Edema 782.3 and Eustachian t ube dysfunction 381.81 [place] [address] [facility] [id number] [address] [place] [address] August, [place] [address] [facility] [id number] [address] [place] [address] August, Eustachian tube dysfunction 381.81 [place] [address] [facility] [id number] [address] [place] [address] Jul, Otalgia 388.70 and Otitis me jonathon 382.9 [facility] [address] [id number] [address] [place] [address] Jul, [facility] [address] [id number] [address] [place] [address] Jul, [facility] [address] [id number] [address] [place] [address] Jul, [facility] [address] [id number] [address] [place] [address] Jul, [facility] [address] [id number] [address] [place] [address] Jul, [facility] [address] [id number] [address] [place] [address] Jun, [facility] [address] [id number] [address] [place] [address] Jun, [facility] [address] [id number] [address] [place] [address] Jun, [facility] [address] [id number] [address] [place] [address] May, [facility] [address] [id number] [address] [place] [address] May, [facility] [address] [id number] [address] [place] [address] May, [facility] [address] [id number] [address] [place] [address] May, [facility] [address] [id number] [address] [place] [address] May, [facility] [address] [id number] [address] [place] [address] May, [facility] [address] [id number] [address] [place] [address] May, [facility] [address] [id number] [address] [place] [address], [place] [address] May, [facility] [address] [id number] [address] [place] [address], [place] [address] May, [facility] [address] [id number] [address] [place] [address], [place] [address] May, [facility] [address] [id number] [address] [place] [address], [place] [address] Apr, [facility] [address] [id number] [address] [place] [address], [place] [address] Apr, [facility] [address] [id number] [address] [place] [address], [place] [address] Apr, [facility] [address] [id number] [address] [place] [address], [place] [address] Apr, [facility] [address] [id number] [address] [place] [address], [place] [address] Apr, [facility] [address] [id number] [address] [place] [address], [place] [address] Apr, [facility] [address] [id number] [address] [place] [address], [place] [address] Apr, [facility] [address] [id number] [address] [place] [address], [place] [address] Apr, [facility] [address] [id number] [address] [place] [address], [place] [address] Apr, [facility] [address] [id number] [address] [place] [address], [place] [address] Apr, [facility] [address] [id number] [address] [place] [address], [place] [address] Apr, [facility] [address] [id number] [address] [place] [address], [place] [address] Apr, [facility] [address] [id number] [address] [place] [address], [place] [address] Apr, [facility] [address] [id number] [address] [place] [address], [place] [address] Apr, [facility] [address] [id number] [address] [place] [address], [place] [address] Apr, [facility] [address] [id number] [address] [place] [address], [place] [address] Mar, [facility] [address] [id number] [address] [place] [address], [place] [address] Mar, [facility] [address] [id number] [address] [place] [address], [place] [address] Mar, [facility] [address] [id number] [address] [place] [address], [place] [address] Mar, [facility] [address] [id number] [address] [place] [address], [place] [address] Feb, [facility] [address] [id number] [address] [place] [address], [place] [address] Feb, [facility] [address] [id number] [address] [place] [address], [place] [address] Feb, [facility] [address] [id number] [address] [place] [address], [place] [address] Feb, [facility] [address] [id number] [address] [place] [address], [place] [address] Jan, [facility] [address] [id number] [address] [place] [address], [place] [address] Jan, [facility] [address] [id number] [address] [place] [address], [place] [address] Jan, [facility] [address] [id number] [address] [place] [address], [place] [address] Jan, [facility] [address] [id number] [address] [place] [address], [place] [address] Jan, [facility] [address] [id number] [address] [place] [address], [place] [address] Jan, [facility] [address] [id number] [address] [place] [address], [place] [address] Jan, [facility] [address] [id number] [address] [place] [address], [place] [address] Jan, [facility] [address] [id number] [address] [place] [address], [place] [address] Dec, [facility] [address] [id number] [address] [place] [address], [place] [address] Dec, [facility] [address] [id number] [address] [place] [address], [place] [address] Dec, [facility] [address] [id number] [address] [place] [address], [place] [address] Dec, [facility] [address] [id number] [address] [place] [address], [place] [address] Oct, [facility] [address] [id number] [address] [place] [address], [place] [address] Oct, [facility] [address] [id number] [address] [place] [address], [place] [address] Oct, [facility] [address] [id number] [address] [place] [address], [place] [address] Oct, [facility] [address] [id number] [address] [place] [address], [place] [address] Oct, [facility] [address] [id number] [address] [place] [address], [place] [address] Oct, [facility] [address] [id number] [address] [place] [address], [place] [address] Oct, [facility] [address] [id number] [address] [place] [address], [place] [address] Oct, [facility] [address] [id number] [facility] [place] [address] Sep, [facility] [address] [id number] [facility] [place] [address] Sep, [facility] [address] [id number] [facility] [place] [address] Sep, [facility] [address] [id number] [address] [place] [address], [place] [address] Sep, [facility] [address] [id number] [address] [place] [address], [place] [address] Sep, [facility] [address] [id number] [address] [place] [address], [place] [address] Sep, [facility] [address] [id number] [address] [place] [address], [place] [address] Sep, [facility] [address] [id number] [address] [place] [address], [place] [address] Sep, [facility] [address] [id number] [address] [place] [address], [place] [address] Sep, [facility] [address] [id number] [address] [place] [address], [place] [address] Sep, [facility] [address] [id number] [address] [place] [address], [place] [address] August, [facility] [address] [id number] [address] [place] [address], [place] [address] August, [facility] [address] [id number] [address] [place] [address], [place] [address] August, [facility] [address] [id number] [address] [place] [address], [place] [address] August, [facility] [address] [id number] [address] [place] [address], [place] [address] August, [facility] [address] [id number] [address] [place] [address], [place] [address] August, [facility] [address] [id number] [address] [place] [address], [place] [address] August, [facility] [address] [id number] [address] [place] [address], [place] [address] August, [facility] [address] [id number] [address] [place] [address], [place] [address] August, [facility] [address] [id number] [address] [place] [address], [place] [address] August, [facility] [address] [id number] [address] [place] [address], [place] [address] August, [facility] [address] [id number] [address] [place] [address], [place] [address] August, [facility] [address] [id number] [address] [place] [address], [place] [address] Jul, [facility] [address] [id number] [address] [place] [address], [place] [address] Jul, [facility] [address] [id number] [address] [place] [address], [place] [address] Jul, [facility] [address] [id number] [address] [place] [address], [place] [address] Jul, [facility] [address] [id number] [address] [place] [address], [place] [address] Jul, [facility] [address] [id number] [address] [place] [address], [place] [address] Jul, [facility] [address] [id number] [address] [place] [address], [place] [address] Jun, [facility] [address] [id number] [address] [place] [address], [place] [address] Jun, [facility] [address] [id number] [address] [place] [address], [place] [address] May, [facility] [address] [id number] [address] [place] [address] 10 May, 2013 [facility] [address] [id number] [address] [place] [address], [place] [address] Apr, [facility] [address] [id number] [address] [place] [address], [place] [address] Apr, [facility] [address] [id number] [address] [place] [address], [place] [address] Apr, [facility] [address] [id number] [address] [place] [address], [place] [address] Apr, [facility] [address] [id number] [address] [place] [address], [place] [address] Apr, [facility] [address] [id number] [address] [place] [address], [place] [address] Apr, [facility] [address] [id number] [address] [place] [address], [place] [address] Apr, [facility] [address] [id number] [address] [place] [address], [place] [address] Apr, [facility] [address] [id number] [address] [place] [address], [place] [address] Apr, [facility] [address] [id number] [address] [place] [address], [place] [address] Apr, [facility] [address] [id number] [address] [place] [address], [place] [address] Apr, [facility] [address] [id number] [address] [place] [address], [place] [address] Apr, [facility] [address] [id number] [address] [place] [address], [place] [address] Apr, [facility] [address] [id number] [address] [place] [address], [place] [address] Mar, [facility] [address] [id number] [address] [place] [address], [place] [address] Mar, [facility] [address] [id number] [address] [place] [address], [place] [address] Mar, [facility] [address] [id number] [address] [place] [address], [place] [address] Mar, [facility] [address] [id number] [address] [place] [address], [place] [address] Feb, [facility] [address] [id number] [address] [place] [address], [place] [address] Feb, [facility] [address] [id number] [address] [place] [address], [place] [address] Feb, [facility] [address] [id number] [address] [place] [address], [place] [address] Feb, [facility] [address] [id number] [address] [place] [address], [place] [address] Jan, [facility] [address] [id number] [address] [place] [address], [place] [address] Jan, [facility] [address] [id number] [address] [place] [address], [place] [address] Jan, [facility] [address] [id number] [address] [place] [address], [place] [address] Jan, [facility] [address] [id number] [address] [place] [address], [place] [address] Jan, [facility] [address] [id number] [address] [place] [address], [place] [address] Jan, [facility] [address] [id number] [address] [place] [address], [place] [address] Jan, [facility] [address] [id number] [address] [place] [address], [place] [address] Jan, [facility] [address] [id number] [address] [place] [address], [place] [address] Jan, [facility] [address] [id number] [address] [place] [id number] 26 Dec, 2012 [facility] [address] [id number] [address] [place] [address], [place] [address] 16 Dec, 2012 [facility] [address] [id number] [address] [place] [address], [place] [address] 16 Dec, 2012 [facility] [address] [id number] [address] [place] [address], [place] [address] 13 Dec, 2012 [facility] [address] [id number] [address] [place] [address], [place] [address] Nov, [facility] [address] [id number] [address] [place] [address], [place] [address] Nov, [facility] [address] [id number] [address] [place] [address], [place] [address] Nov, [facility] [address] [id number] [address] [place] [address], [place] [address] Nov, [facility] [address] [id number] [address] [place] [address], [place] [address] Oct, [facility] [address] [id number] [address] [place] [address], [place] [address] Sep, [facility] [address] [id number] [address] [place] [address], [place] [address] August, [facility] [address] [id number] [address] [place] [address], [place] [address] August, [facility] [address] [id number] [address] [place] [address], [place] [address] August, [facility] [address] [id number] [address] [place] [address], [place] [address] August, [facility] [address] [id number] [address] [place] [address], [place] [address] August, [facility] [address] [id number] [address] [place] [address], [place] [address] August, [facility] [address] [id number] [address] [place] [address], [place] [address] August, [facility] [address] [id number] [address] [place] [address], [place] [address] August, [facility] [address] [id number] [address] [place] [address], [place] [address] August, [facility] [address] [id number] [address] [place] [address], [place] [address] August, [facility] [address] [id number] [address] [place] [address], [place] [address] August, [facility] [address] [id number] [address] [place] [address], [place] [address] August, [facility] [address] [id number] [address] [place] [address], [place] [address] Jul, [facility] [address] [id number] [address] [place] [address], [place] [address] Jul, [facility] [address] [id number] [address] [place] [address], [place] [address] Jul, [facility] [address] [id number] [address] [place] [address], [place] [address] Jul, [facility] [address] [id number] [address] [place] [address], [place] [address] Jul, [facility] [address] [id number] [address] [place] [address], [place] [address] Jul, [facility] [address] [id number] [address] [place] [address], [place] [address] Jul, [facility] [address] [id number] [address] [place] [address], [place] [address] Jul, [facility] [address] [id number] [address] [place] [address], [place] [address] Jul, [facility] [address] [id number] [address] [place] [address], [place] [address] Jul, [facility] [address] [id number] [address] [place] [address], [place] [address] Jul, [facility] [address] [id number] [address] [place] [address], [place] [address] Jun, [facility] [address] [id number] [address] [place] [address], [place] [address] Jun, [facility] [address] [id number] [address] [place] [address], [place] [address] Jun, [facility] [address] [id number] [address] [place] [address], [place] [address] Jun, [facility] [address] [id number] [address] [place] [address], [place] [address] May, [facility] [address] [id number] [address] [place] [address], [place] [address] May, [facility] [address] [id number] [address] [place] [address], [place] [address] 05 May, 2012 [facility] [address] [id number] [address] [place] [address], [place] [address] May, [facility] [address] [id number] [address] [place] [address], [place] [address] May, [facility] [address] [id number] [address] [place] [address], [place] [address] May, [facility] [address] [id number] [address] [place] [address], [place] [address] Apr, [facility] [address] [id number] [address] [place] [address], [place] [address] Apr, [facility] [address] [id number] [address] [place] [address], [place] [address] Apr, [facility] [address] [id number] [address] [place] [address], [place] [address] Apr, [facility] [address] [id number] [address] [place] [address], [place] [address] 15 Mar, 2012 [facility] [address] [id number] [address] [place] [address], [place] [address] 14 Mar, 2012 [facility] [address] [id number] [address] [place] [address], [place] [address] 14 Mar, 2012 [facility] [address] [id number] [address] [place] [address], [place] [address] 14 Mar, 2012 [facility] [address] [id number] [address] [place] [address], [place] [address] 14 Mar, 2012 [facility] [address] [id number] [address] [place] [address], [place] [address] 06 Mar, 2012 [facility] [address] [id number] [address] [place] [address], [place] [address] 06 Mar, 2012 [facility] [address] [id number] [address] [place] [address], [place] [address] Feb, [facility] [address] [id number] [address] [place] [address], [place] [address] Feb, [facility] [address] [id number] [address] [place] [address], [place] [address] Feb, [facility] [address] [id number] [address] [place] [address], [place] [address] Feb, [facility] [address] [id number] [address] [place] [address], [place] [address] Jan, [facility] [address] [id number] [address] [place] [address], [place] [address] Jan, [facility] [address] [id number] [address] [place] [address], [place] [address] 10 Jan, 2012 [facility] [address] [id number] [address] [place] [address], [place] [address] 10 Jan, 2012 [facility] [address] [id number] [address] [place] [address], [place] [address] 03 Jan, 2012 [facility] [address] [id number] [address] [place] [address], [place] [address] Jan, [facility] [address] [id number] [address] [place] [address], [place] [address] Dec, [facility] [address] [id number] [address] [place] [address], [place] [address] Dec, [facility] [address] [id number] [address] [place] [address], [place] [address] Nov, [facility] [address] [id number] [address] [place] [address], [place] [address] Sep, [facility] [address] [id number] [address] [place] [address], [place] [address] August, [facility] [address] [id number] [address] [place] [address], [place] [address] August, [facility] [address] [id number] [address] [place] [address], [place] [address] August, [facility] [address] [id number] [address] [place] [address], [place] [address] August, [facility] [address] [id number] [address] [place] [address], [place] [address] August, [facility] [address] [id number] [address] [place] [address], [place] [address] Jun, [facility] [address] [id number] [address] [place] [address], [place] [address] Jun, [facility] [address] [id number] [address] [place] [address], [place] [address] Apr, [facility] [address] [id number] [address] [place] [address], [place] [address] Apr, [facility] [address] [id number] [address] [place] [address], [place] [address] Mar, [facility] [address] [id number] [address] [address] Feb, [facility] [address] [id number] [address] [place] [address] 14 Feb, 2011 [facility] [address] [id number] [address] [place] [address] Feb, [facility] [address] [id number] [address] [place] [address] 17 Jan, 2011 [facility] [address] [id number] [address] [place] [address] 15 Jan, 2011 [facility] [address] [id number] [address] [place] [address] Jan, [facility] [address] [id number] [address] [place] [address] Jan, [facility] [address] [id number] [address] [place] [address] 15 May, 2010 [facility] [address] [id number] [address] [place] [address] Mar, [facility] [address] [id number] [address] [place] [address] Oct, [facility] [address] [id number] [address] [place] [address] Sep, [facility] [address] [id number] [address] [place] [phone] Mar, [facility] [address] [id number] [address] [place] [address] Jan, [facility] [address] [id number] [address] [place] [address] Jan, [facility] [address] [id number] [address] [place] [phone] May, IMMUNIZATIONS No Known Immunizations SOCIAL HISTORY Never Assessed REASON FOR VISIT PLAN OF CARE VITAL SIGNS Height 62 in 2014-02-14 Weight 181.6 lbs 2014-02-14 Temperature 96.9 degrees Fahrenheit 2014-02-14 Heart Rate 76 bpm 2014-02-14 Respiratory Rate 18 2014-02-14 Blood pressure systolic 136 mmHg 2014-02-14 Blood pressure diastolic 88 mmHg 2014-02-14 MEDICATIONS Unknown Medications RESULTS No Results PROCEDURES [...]
--- OUTSIDE RECORDS SUMMARY | 2019-11-23 05:57 | XMS REPORT ---
Author Author Liana Coe Doctor Organization [facility] Address Unknown Phone Unavailable Care Team Providers Care Land Development Project Manager Name Role Phone Migration, Doctor Unavailable Unavailable PROBLEMS Type Condition ICD9-CM Code AHB79-VY Code Onset Dates Condition S tatus SNOMED Code Problem Hematuria, unspecified type R31.9 Ac tive 43303895 Problem Abnormal renal ultrasound R93.429 Acti ve [id number] Problem Anxiety F41.9 Active 99058995 Problem Hypokalemia E87.6 Active 83054526 Problem Abnormal glucose R73.09 Active 102 203162 Problem Chronic pain due to trauma G89.21 Act juanis 087858396 Problem Neuroforaminal stenosis of spine M99.89 Active [id number] Problem Neck pain M54.2 Active 00875301 Problem Essential hypertension I10 Active 43145534 Problem Mixed hyperlipidemia E78.2 Active 83066844 ALLERGIES No Information ENCOUNTERS Encounter Location Date Diagnosis [place] [address] [facility] [id number] [address] [place] [address] Oct, Neuroforaminal stenosis of s pine M99.89 [facility] [address] [facility] [id number] [address] [place] [address] 24 Sep, 2018 [facility] [address] [facility] [id number] [address] [place] [address] Sep, [place] [address] [facility] [id number] [address] [place] [id number] 18 Sep, 2018 Routine screening for STI (s exually transmitted infection) Z11.3 [place] [address] [facility] [id number] [address] [place] [address] 14 Sep, 2018 Routine screening for STI (s exually transmitted infection) Z11.3 ; Well woman exam with routine gynecological exam Z01.419 and Breast cancer screening Z12.39 [place] [address] [id number] [address] [place] [address] Sep, Neuroforaminal stenosis of s pine M99.89 [facility] [address] [place] [id number] [address] [place] [address] August, Neuroforaminal stenosis of s pine M99.89 [facility] [address] [place] [id number] [address] [place] [address] August, Neuroforaminal stenosis of s pine M99.89 ; Chronic pain due to trauma G89.21 and Mixed hyperlipidemia E78.2 [facility] [address] [place] [id number] [address] [place] [address] Jul, Viral upper respiratory illn ess J06.9 and Acute non-recurrent frontal sinusitis J01.10 [place] [address] [place] [id number] [place] [address] Jul, Congestion of nasal sinus R0 9.81 [place] [address] [place] [id number] [place] [address] Jul, Neuroforaminal stenosis of s pine M99.89 and Essential hypertension I10 [place] [address] [place] [id number] [address] [place] [address] May, Neuroforaminal stenosis of s pine M99.89 [place] [address] [place] [id number] [address] [place] [address] May, [facility] [address] [place] [id number] [address] [place] [address] May, Congestion of nasal sinus R0 9.81 [facility] [address] [facility] [id number] [address] [place] [address] May, [facility] [address] [place] [id number] [address] [place] [address] Apr, Neuroforaminal stenosis of s pine M99.89 [facility] [address] [place] [id number] [address] [place] [address] Apr, Neuroforaminal stenosis of ayla garcia M99.89 and Chronic pain due to trauma G89.21 [facility] [address] [id number] [address] [place] [address] Mar, UTI (urinary tract infection ) N39.0 [facility] [address] [id number] [address] [place] [address] Mar, Vertigo R42 [facility] [address] [id number] [address] [place] [address] Mar, Neuroforaminal stenosis of ayla garcia M99.89 [facility] [address] [facility] [id number] [address] [place] [address] Feb, Extensor tendon disruption M 67.89 [facility] [address] [facility] [id number] [address] [place] [address] Feb, Neuroforaminal stenosis of ayla garcia M99.89 and High risk medication use Z79.899 [facility] [address] [id number] [address] [place] [address] Jan, Hypokalemia E87.6 [facility] [address] [facility] [id number] [address] [place] [address] Jan, Flank pain R10.9 and Acute r ight-sided low back pain without sciatica M54.5 [facility] [address] [facility] [id number] [address] [place] [address] Jan, Hypokalemia E87.6 [facility] [address] [facility] [id number] [address] [place] [address] Jan, [facility] [address] [facility] [id number] [address] [place] [address] Jan, URI, acute J06.9 [facility] [address] [facility] [id number] [address] [place] [address] Jan, Neuroforaminal stenosis of ayla garcia M99.89 [facility] [address] [address] 13 Dec, 2017 Lateral epicondylitis, right elbow M77.11 [place] [address] [address] 11 Dec, 2017 Allergic rhinitis due to monica rosalina, unspecified seasonality J30.1 and Allergic conjunctivitis of both eyes H10.13 [place] [address] [address] 10 Dec, 2017 Neuroforaminal stenosis of s pine M99.89 [place] [address] [address] 06 Dec, 2017 Mixed hyperlipidemia E78.2 [place] [address] [address] 05 Dec, 2017 Abnormal glucose R73.09 ; Ab normal renal ultrasound R93.429 ; Dysuria R30.0 ; Cystitis without hematuria N30.90 ; Hypokalemia E87.6 ; Mixed hyperlipidemia E78.2 and Hematuria, unspecified type R31.9 [place] [address] [address] Nov, Hypokalemia E87.6 ; Mixed hy perlipidemia E78.2 and Hematuria, unspecified type R31.9 [place] [address] [address] Nov, [place] [address] [address] Nov, Hypokalemia E87.6 [place] [address] [address] Nov, [place] [address] [address] Nov, Abnormal renal ultrasound R9 3.429 [place] [address] [address] Nov, Abnormal renal ultrasound R9 3.429 [place] [address] [id number] [address] [place] [address] Nov, Hematuria, unspecified type R31.9 and Neuroforaminal stenosis of spine M99.89 [place] [address] [id number] [address] [place] [address] Nov, Dysuria R30.0 [place] [address] [id number] [address] [place] [address] Oct, Lateral epicondylitis, right elbow M77.11 [place] [address] [id number] [address] [place] [address] Oct, Neuroforaminal stenosis of s pine M99.89 ; Visit for TB skin test Z11.1 and Essential hypertension I10 [place] [address] [id number] [address] [place] [address] Oct, [place] [address] [id number] [address] [place] [address] Oct, Neuroforaminal stenosis of s pine M99.89 [place] [address] [id number] [address] [place] [address] Oct, Visit for TB skin test Z11.1 [place] [address] [id number] [address] [place] [address] 05 Oct, 2017 Cystitis without hematuria N 30.90 [place] [address] [id number] [address] [place] [address] Sep, Screening breast examination Z12.39 [place] [address] [id number] [address] [place] [address] Sep, Dysuria R30.0 and Cystitis w ithout hematuria N30.90 [place] [address] [id number] [address] [place] [address] 14 Sep, 2017 Essential hypertension I10 a nd Neuroforaminal stenosis of spine M99.89 [place] [address] [id number] [address] [place] [address] Sep, Abnormal glucose R73.09 [place] [address] [id number] [address] [place] [address] August, Lateral epicondylitis, right elbow M77.11 [place] [address] [id number] [address] [place] [address] August, Screen for STD (sexually tra nsmitted disease) Z11.3 [place] [address] [id number] [address] [place] [address] August, Neuroforaminal stenosis of ayla garcia M99.89 ; Mixed hyperlipidemia E78.2 ; Elevated fasting glucose R73.01 ; Screening mammogram, encounter for Z12.31 and Encounter for well woman exam without gynecological exam Z00.00 [place] [address] [id number] [address] [place] [address] August, Neuroforaminal stenosis of ayla garcia M99.89 [place] [address] [id number] [address] [place] [address] August, Essential hypertension I10 ; Hypokalemia E87.6 and Mixed hyperlipidemia E78.2 [place] [address] [id number] [address] [place] [address] Jul, [place] [address] [id number] [address] [place] [address] Jul, Neuroforaminal stenosis of ayla garcia M99.89 [place] [address] [id number] [address] [place] [address] Jul, Lateral epicondylitis, right elbow M77.11 [place] [address] [id number] [address] [place] [address] Jul, [place] [address] [id number] [address] [place] [address] Jun, High ankle sprain of right l ower extremity, initial encounter S93.431A [facility] [address] [id number] [address] [place] [address] Jun, Essential hypertension I10 [facility] [address] [id number] [address] [place] [address] Jun, [facility] [address] [id number] [address] [place] [address] Jun, [place] [address] [id number] [address] [place] [address] Jun, Neuroforaminal stenosis of s pine M99.89 [place] [address] [id number] [address] [place] [address] Jun, Pain of right upper extremit y M79.601 and Essential hypertension I10 [place] [address] [facility] [id number] [address] [place] [address] Jun, [place] [address] [facility] [id number] [address] [place] [address] Jun, Dysuria R30.0 ; Acute cystit is with hematuria N30.01 and Screen for STD (sexually transmitted disease) Z11.3 [place] [address] [facility] [id number] [address] [place] [address] May, Chronic pain due to trauma G 89.21 [place] [address] [id number] [address] [place] [address] May, Essential hypertension I10 [place] [address] [id number] [address] [place] [address] May, Neuroforaminal stenosis of s pine M99.89 [place] [address] [facility] [id number] [address] [place] [address] Apr, Allergic reaction, initial e ncounter T78.40XA [facility] [address] [facility] [id number] [address] [place] [address] Apr, Low back pain, unspecified b ack pain laterality, unspecified chronicity, with sciatica presence unspecified M54.5 ; Acute cystitis with hematuria N30.01 ; Neuroforaminal stenosis of spine M99.89 ; Bilateral acute serous otitis media, recurrence not specified H65.03 ; Mixed hyperlipidemia E78.2 ; Essential hypertension I10 ; Immunization counseling Z71.89 and Encounter for immunization Z23 [facility] [address] [id number] [address] [place] [address] 08 Apr, 2017 Neck pain M54.2 [facility] [address] [id number] [address] [place] [address] Mar, Neuroforaminal stenosis of s jose M99.89 [facility] [address] [id number] [address] [place] [address] Mar, Pharyngitis due to other org anism J02.8 [facility] [address] [id number] [address] [place] [address] Feb, Neuroforaminal stenosis of s jose M99.89 [facility] [address] [id number] [address] [place] [address] 08 Feb, 2017 UTI (urinary tract infection ) N39.0 [facility] [address] [id number] [address] [place] [address] 07 Feb, 2017 Recent urinary tract infecti on Z87.440 ; Neuroforaminal stenosis of spine M99.89 ; Neck pain M54.2 ; Chronic pain due to trauma G89.21 and Recurrent UTI N39.0 [facility] [address] [id number] [address] [place] [address] Feb, [facility] [address] [id number] [address] [place] [address] Jan, Neuroforaminal stenosis of s jose M99.89 [facility] [address] [id number] [address] [place] [address] Dec, Neuroforaminal stenosis of s jose M99.89 [facility] [address] [id number] [address] [place] [address] 18 Dec, 2016 Acute seasonal allergic rhin itis due to pollen J30.1 [facility] [address] [id number] [address] [place] [address] 08 Dec, 2016 [facility] [address] [id number] [address] [place] [address] 08 Dec, 2016 Acute seasonal allergic rhin itis, unspecified trigger J30.2 ; Allergic conjunctivitis of both eyes H10.13 and Dysfunction of both eustachian tubes H69.83 [facility] [address] [id number] [address] [place] [address] 07 Dec, 2016 [facility] [address] [id number] [address] [place] [address] Dec, Nevus D22.9 [place] [address] [facility] [id number] [address] [place] [address] Nov, Chronic pain due to trauma G 89.21 and Neuroforaminal stenosis of spine M99.89 [facility] [address] [id number] [address] [place] [address] Nov, Neuroforaminal stenosis of s pine M99.89 ; Essential hypertension I10 ; Mixed hyperlipidemia E78.2 ; Hypokalemia E87.6 ; Neck pain M54.2 and Nevus D22.9 [place] [address] [id number] [address] [place] [address] Oct, Neuroforaminal stenosis of s pine M99.89 [facility] [address] [id number] [address] [place] [address] Sep, Neuroforaminal stenosis of s pine M99.89 [facility] [address] [facility] [id number] [address] [place] [address] Sep, [facility] [address] [facility] [id number] [address] [place] [address] August, [facility] [address] [id number] [address] [place] [address] August, Neck pain M54.2 and Neurofor aminal stenosis of spine M99.89 [facility] [address] [id number] [address] [place] [address] August, Routine gynecological examin ation Z01.419 and Screening breast examination Z12.39 [facility] [address] [id number] [address] [place] [address] Jul, [facility] [address] [id number] [address] [place] [address] Jul, [facility] [address] [id number] [address] [place] [address] Jul, Neuroforaminal stenosis of s pine M99.89 [facility] [address] [id number] [address] [place] [address] Jul, [facility] [address] [id number] [address] [place] [address] Jul, Neuroforaminal stenosis of l umbar 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 [facility] [address] [id number] [address] [place] [address] Jul, [facility] [address] [id number] [address] [place] [address] Jul, [facility] [address] [id number] [address] [place] [address] Jun, Neuroforaminal stenosis of s pine M99.89 [facility] [address] [id number] [address] [place] [address] Jun, Uterine leiomyoma, unspecifi ed location D25.9 and Allergic reaction caused by a drug, initial encounter T78.40XA [facility] [address] [id number] [address] [place] [address] Jun, [facility] [address] [id number] [address] [place] [address] May, UTI symptoms R39.9 and Pain of right sacroiliac joint M53.3 [place] [address] [address] May, Neuroforaminal stenosis of s pine M99.89 [place] [address] [address] May, [place] [address] [address] May, Acute mucoid otitis media of left ear H65.112 and Acute non- recurrent maxillary sinusitis J01.[address] [address] May, Acute bacterial conjunctivit is of both eyes H10.33 ; Left arm pain M79.602 and Hypokalemia E87.6 [place] [address] [address] Apr, [place] [address] [address] Apr, Neuroforaminal stenosis of s pine M99.89 ; Neck pain M54.2 ; Chronic pain due to trauma G89.21 ; Mixed hyperlipidemia E78.2 ; Essential hypertension I10 and Hypokalemia E87.6 [place] [id number] [place] [address] Mar, Oral candidiasis B37.0 ; Nathaniel roforaminal stenosis of spine M99.89 ; Neck pain M54.2 and Chronic pain due to trauma G89.21 [place] [address] [address] Feb, [place] [id number] [place] [address] Feb, [address] [address] Feb, UTI (urinary tract infection ) N39.0 [facility] [address] [id number] [address] [place] [address] Feb, Dysuria R30.0 [facility] [address] [id number] [address] [place] [address] 08 Feb, 2016 Dysuria R30.0 [facility] [address] [id number] [address] [place] [address] Feb, Neuroforaminal stenosis of s pine M99.89 ; Neck pain M54.2 ; Essential hypertension I10 ; Chronic pain due to trauma G89.21 ; Dysuria R30.0 ; Abnormal MRI, shoulder R93.8 and Acute cystitis without hematuria N30.00 [facility] [address] [id number] [address] [place] [address] Jan, [facility] [address] [id number] [address] [place] [address] Jan, [facility] [address] [id number] [address] [place] [address] Jan, [facility] [address] [id number] [address] [place] [address] Jan, Abnormal MRI R93.8 [facility] [address] [id number] [address] [place] [address] Dec, [facility] [address] [id number] [address] [place] [address] 15 Dec, 2015 Acute pain of left shoulder M25.512 [facility] [address] [id number] [address] [place] [address] Dec, [facility] [address] [id number] [address] [place] [address] 08 Dec, 2015 [facility] [address] [id number] [address] [place] [address] 07 Dec, 2015 Acute pain of left shoulder M25.512 [facility] [address] [id number] [address] [place] [address] Nov, [facility] [address] [id number] [address] [place] [address] Nov, Neuroforaminal stenosis of s pine M99.89 ; Neck pain M54.2 ; Abnormal mammogram R92.8 ; Essential hypertension I10 and Chronic pain due to trauma G89.21 [facility] [address] [id number] [address] [place] [address] Nov, [facility] [address] [id number] [address] [place] [address] Oct, Acute stress disorder F43.0 [facility] [address] [id number] [address] [place] [address] Oct, [facility] [address] [id number] [address] [place] [address] Oct, [facility] [address] [id number] [address] [place] [address] Oct, [facility] [address] [id number] [address] [place] [address] Sep, [facility] [address] [id number] [address] [place] [address] August, [facility] [address] [id number] [address] [place] [address] Jul, Neuroforaminal stenosis of s pine M99.89 ; Neck pain M54.2 ; Abnormal mammogram R92.8 and Essential hypertension I10 [facility] [address] [id number] [address] [place] [address] Jul, [facility] [address] [id number] [address] [place] [address] Jul, [facility] [address] [id number] [address] [place] [address] Jul, Abnormal mammogram R92.8 [facility] [address] [id number] [address] [place] [address] 08 Jul, 2015 [facility] [address] [facility] [id number] [address] [place] [id number] Jul, UTI (urinary tract infection ) N39.0 [facility] [address] [facility] [id number] [address] [place] [id number] Jul, Dysuria R30.0 [facility] [address] [id number] [address] [place] [id number] Jun, [facility] [address] [id number] [address] [place] [id number] Jun, [facility] [address] [facility] [id number] [address] [place] [id number] Jun, Hypokalemia E87.6 and Hematu martina R31.9 [facility] [address] [facility] [id number] [address] [place] [id number] Jun, Hypokalemia E87.6 [facility] [address] [id number] [address] [place] [id number] Jun, [facility] [address] [facility] [id number] [address] [place] [id number] Jun, Hypokalemia E87.6 [place] [id number] [facility] [id number] [address] [place] [id number] Jun, Hypokalemia E87.6 [facility] [address] [facility] [id number] [address] [place] [id number] 15 Jun, 2015 Neuroforaminal stenosis of s pine M99.89 ; Hypokalemia E87.6 ; Neck pain M54.2 ; Essential hypertension I10 ; Mixed hyperlipidemia E78.2 and Screening breast examination Z12.39 [facility] [address] [facility] [id number] [address] [place] [id number] Jun, Dysuria R30.0 ; UTI (urinary tract infection) N39.0 and Hematuria R31.9 [facility] [address] [place] [id number] [address] [place] [id number] May, [facility] [address] [place] [id number] [place] [id number] 18 May, 2015 High risk sexual behavior Z7 2.51 ; Hypokalemia E87.6 ; Neuroforaminal stenosis of spine M99.89 ; Neck pain M54.2 ; Essential hypertension I10 ; Mixed hyperlipidemia E78.2 ; STD exposure Z20.2 and Concern about STD in female without diagnosis Z71.1 [place] [address] [address] 16 May, 2015 Neuroforaminal stenosis of s pine M99.89 ; Neck pain M54.2 ; Hypokalemia E87.6 ; Essential hypertension I10 and Mixed hyperlipidemia E78.2 [place] [address] [place] [id number] [place] [address] 11 May, 2015 [facility] [address] [place] [id number] [place] [address] 08 May, 2015 High risk sexual behavior Z7 2.51 ; STD exposure Z20.2 and Concern about STD in female without diagnosis Z71.1 [place] [address] [address] May, [facility] [address] [place] [id number] [address] [place] [address] Apr, Neuroforaminal stenosis of s pine M99.89 ; Mixed hyperlipidemia E78.2 ; Essential hypertension I10 and Hypokalemia E87.6 [facility] [address] [place] [id number] [address] [place] [address] Mar, [facility] [address] [place] [id number] [address] [place] [address] Mar, Hypokalemia E87.6 [facility] [address] [place] [id number] [address] [place] [address] Mar, Neuroforaminal stenosis of s pine M99.89 ; Mixed hyperlipidemia E78.2 ; Neck pain M54.2 ; Essential hypertension I10 ; Abnormal fasting glucose R73.09 ; Hypokalemia E87.6 and Constipation K59.00 [facility] [address] [place] [id number] [address] [place] [address] Feb, Neuroforaminal stenosis of s pine M99.89 ; Mixed hyperlipidemia E78.2 ; Neck pain M54.2 ; Essential hypertension I10 ; Abnormal fasting glucose R73.09 ; Hypokalemia E87.6 and Constipation K59.00 [place] [address] [place] [id number] [place] [address] Feb, Elevated fasting blood sugar R73.01 [place] [address] [place] [id number] [address] [place] [address] Feb, Elevated fasting blood sugar R73.01 [place] [address] [place] [id number] [address] [place] [address] Feb, Hair loss L65.[address] [address] Feb, Sinusitis J32.9 ; Essential hypertension I10 and Hair loss L65.9 [place] [address] [place] [id number] [address] [place] [address] Jan, [place] [address] [place] [id number] [place] [address] Jan, Essential hypertension I10 ; Neuroforaminal stenosis of spine M99.89 ; Neck pain M54.2 ; Mixed hyperlipidemia E78.2 and Anxiety F41.9 [place] [address] [place] [id number] [address] [place] [address] Jan, [place] [address] [place] [id number] [place] [address] Jan, Mixed hyperlipidemia E78.2 ; Essential (primary) hypertension I10 ; Strain of muscle, fascia and tendon at neck level, subsequent encounter S16.1XXD and Tension-type headache, unspecified, not intractable G44.209 [facility] [address] [id number] [address] [place] [address] Dec, Lumbar back pain 724.2 and N euroforaminal stenosis of spine 724.00 [place] [address] [id number] [address] [place] [address] Nov, [facility] [address] [id number] [address] [place] [address] Nov, Lumbar back pain 724.2 and N euroforaminal stenosis of spine 724.00 [place] [address] [facility] [id number] [address] [place] [address] Nov, Edema 782.3 ; Lumbar back pa in 724.2 ; Essential hypertension, benign 401.1 ; Hyperlipemia 272.4 ; Neuroforaminal stenosis of spine 724.00 and Post-concussion headache 339.20 [place] [address] [id number] [address] [place] [address] Nov, [place] [address] [id number] [address] [place] [address] Nov, [facility] [address] [id number] [address] [place] [address] Oct, Essential hypertension, sheridan gn 401.1 [facility] [address] [id number] [address] [place] [address] Oct, Edema 782.3 ; Lumbar back pa in 724.2 ; Essential hypertension, benign 401.1 ; Hyperlipemia 272.4 ; Neuroforaminal stenosis of spine 724.00 and Post-concussion headache 339.20 [facility] [address] [id number] [address] [place] [address] Oct, [facility] [address] [id number] [address] [place] [address] Oct, Edema 782.3 [facility] [address] [id number] [address] [place] [address] Oct, Lumbar back pain 724.2 [facility] [address] [id number] [address] [place] [address] Oct, Cervicalgia 723.1 ; Lumbar b ack pain 724.2 and High risk medication use V58.69 [facility] [address] [id number] [address] [place] [address] Sep, [facility] [address] [id number] [address] [place] [address] Sep, Lumbar strain 847.2 [facility] [address] [place] [id number] [address] [place] [address] August, Edema 782.3 and Eustachian t ube dysfunction 381.81 [facility] [address] [facility] [id number] [address] [place] [address] August, [facility] [address] [id number] [address] [place] [address] August, Eustachian tube dysfunction 381.81 [facility] [address] [facility] [id number] [address] [place] [address] Jul, Otalgia 388.70 and Otitis me jonathon 382.9 [facility] [address] [facility] [id number] [address] [place] [address] Jul, [facility] [address] [id number] [address] [place] [address] Jul, [facility] [address] [facility] [id number] [address] [place] [address] Jul, [facility] [address] [facility] [id number] [address] [place] [address] Jul, [facility] [address] [facility] [id number] [address] [place] [address] Jul, [facility] [address] [id number] [address] [place] [address], [place] [address] Jun, [facility] [address] [id number] [address] [place] [address], [place] [address] 27 Jun, 2014 [facility] [address] [id number] [address] [place] [address], [place] [address] Jun, [facility] [address] [id number] [address] [place] [address], [place] [address] May, 2014 [facility] [address] [id number] [address] [place] [address], [place] [address] May, [facility] [address] [id number] [address] [place] [address], [place] [address] May, 2014 [facility] [address] [id number] [address] [place] [address], [place] [address] May, [facility] [address] [id number] [address] [place] [address], [place] [address] May, 2014 [facility] [address] [id number] [address] [place] [address], [place] [address] May, [facility] [address] [id number] [address] [place] [address], [place] [address] May, [facility] [address] [id number] [address] [place] [address], [place] [address] May, [facility] [address] [id number] [address] [place] [address], [place] [address] May, [facility] [address] [id number] [address] [place] [address], [place] [address] May, [facility] [address] [id number] [address] [place] [address], [place] [address] Apr, [facility] [address] [id number] [address] [place] [address], [place] [address] Apr, [facility] [address] [id number] [address] [place] [address], [place] [address] Apr, [facility] [address] [id number] [address] [place] [address], [place] [address] Apr, [facility] [address] [id number] [address] [place] [address], [place] [address] Apr, [facility] [address] [id number] [address] [place] [address], [place] [address] Apr, [facility] [address] [id number] [address] [place] [address], [place] [address] Apr, [facility] [address] [id number] [address] [place] [address], [place] [address] Apr, [facility] [address] [id number] [address] [place] [address], [place] [address] Apr, [facility] [address] [id number] [address] [place] [address], [place] [address] Apr, [facility] [address] [id number] [address] [place] [address], [place] [address] Apr, [facility] [address] [id number] [address] [place] [address], [place] [address] Apr, [facility] [address] [id number] [address] [place] [address], [place] [address] Apr, [facility] [address] [id number] [address] [place] [address], [place] [address] Apr, [facility] [address] [id number] [address] [place] [address], [place] [address] Apr, [facility] [address] [id number] [address] [place] [address], [place] [address] Mar, [facility] [address] [id number] [address] [place] [address], [place] [address] Mar, [facility] [address] [id number] [address] [place] [address], [place] [address] Mar, [facility] [address] [id number] [address] [place] [address], [place] [address] Mar, [facility] [address] [id number] [address] [place] [address], [place] [address] Feb, [facility] [address] [id number] [address] [place] [address], [place] [address] Feb, [facility] [address] [id number] [address] [place] [address], [place] [address] Feb, [facility] [address] [id number] [address] [place] [address], [place] [address] Feb, [facility] [address] [id number] [address] [place] [address], [place] [address] Jan, [facility] [address] [id number] [address] [place] [address], [place] [address] Jan, [facility] [address] [id number] [address] [place] [address], [place] [address] Jan, [facility] [address] [id number] [address] [place] [address], [place] [address] Jan, [facility] [address] [id number] [address] [place] [address] Jan, [facility] [address] [id number] [address] [place] [address] Jan, [facility] [address] [id number] [address] [place] [address] Jan, [facility] [address] [id number] [address] [place] [address], [place] [address] Jan, [facility] [address] [id number] [address] [place] [address], [place] [address] Dec, [facility] [address] [id number] [address] [place] [address] Dec, [facility] [address] [id number] [address] [place] [address] 04 Dec, 2013 [facility] [address] [id number] [address] [place] [address], [place] [address] Dec, 2013 [facility] [address] [id number] [address] [place] [address], [place] [address] Oct, 2013 [facility] [address] [id number] [address] [place] [address], [place] [address] Oct, 2013 [facility] [address] [id number] [address] [place] [address], [place] [address] Oct, 2013 [facility] [address] [id number] [address] [place] [address], [place] [address] Oct, [facility] [address] [id number] [address] [place] [address], [place] [address] Oct, 2013 [facility] [address] [id number] [address] [place] [address], [place] [address] Oct, 2013 [facility] [address] [id number] [address] [place] [address], [place] [address] Oct, [facility] [address] [id number] [address] [place] [address], [place] [address] Oct, [facility] [address] [id number] [address] [place] [address], [place] [address] Sep, [facility] [address] [id number] [address] [place] [address], [place] [address] Sep, [facility] [address] [id number] [address] [place] [address], [place] [address] Sep, [facility] [address] [id number] [address] [place] [address], [place] [address] Sep, [facility] [address] [id number] [address] [place] [address], [place] [address] Sep, [facility] [address] [id number] [address] [place] [address], [place] [address] Sep, [facility] [address] [id number] [facility] [place] [address] Sep, [facility] [address] [id number] [facility] [place] [address] Sep, [facility] [address] [id number] [address] [place] [address], [place] [address] Sep, [facility] [address] [id number] [address] [place] [address], [place] [address] Sep, [facility] [address] [id number] [address] [place] [address], [place] [address] August, [facility] [address] [id number] [address] [place] [address], [place] [address] August, [facility] [address] [id number] [address] [place] [address], [place] [address] August, [facility] [address] [id number] [address] [place] [address], [place] [address] August, [facility] [address] [id number] [address] [place] [address], [place] [address] August, [facility] [address] [id number] [address] [place] [address], [place] [address] August, [facility] [address] [id number] [address] [place] [address], [place] [address] August, [facility] [address] [id number] [address] [place] [address], [place] [address] August, [facility] [address] [id number] [address] [place] [address], [place] [address] August, [facility] [address] [id number] [address] [place] [address], [place] [address] August, [facility] [address] [id number] [address] [place] [address], [place] [address] August, [facility] [address] [id number] [address] [place] [address] [address] August, [facility] [address] [id number] [facility] [place] [place] [address] Jul, [facility] [address] [id number] [address] [place] [address], [place] [address] Jul, [facility] [address] [id number] [address] [place] [address], [place] [address] Jul, [facility] [address] [id number] [address] [place] [address], [place] [address] Jul, [facility] [address] [id number] [address] [place] [address], [place] [address] Jul, [facility] [address] [id number] [address] [place] [address], [place] [address] Jul, [facility] [address] [id number] [address] [place] [address], [place] [address] Jun, [facility] [address] [id number] [address] [place] [address], [place] [address] Jun, [facility] [address] [id number] [address] [place] [address], [place] [address] May, [facility] [address] [id number] [address] [place] [address], [place] [address] May, [facility] [address] [id number] [address] [place] [address], [place] [address] Apr, [facility] [address] [id number] [address] [place] [address], [place] [address] Apr, [facility] [address] [id number] [address] [place] [address], [place] [address] Apr, [facility] [address] [id number] [address] [place] [address], [place] [address] Apr, [facility] [address] [id number] [address] [place] [address], [place] [address] Apr, [facility] [address] [id number] [address] [place] [address], [place] [address] Apr, [facility] [address] [id number] [address] [place] [address], [place] [address] Apr, [facility] [address] [id number] [address] [place] [address], [place] [address] Apr, [facility] [address] [id number] [address] [place] [address], [place] [address] Apr, [facility] [address] [id number] [address] [place] [address], [place] [address] Apr, [facility] [address] [id number] [address] [place] [address], [place] [address] Apr, [facility] [address] [id number] [address] [place] [address], [place] [address] Apr, [facility] [address] [id number] [address] [place] [address], [place] [address] Apr, [facility] [address] [id number] [address] [place] [address], [place] [address] Mar, [facility] [address] [id number] [address] [place] [address], [place] [address] Mar, [facility] [address] [id number] [address] [place] [address], [place] [address] Mar, [facility] [address] [id number] [address] [place] [address], [place] [address] Mar, [facility] [address] [id number] [address] [place] [address], [place] [address] Feb, [facility] [address] [id number] [address] [place] [address], [place] [address] Feb, [facility] [address] [id number] [address] [place] [address], [place] [address] Feb, [facility] [address] [id number] [address] [place] [address], [place] [address] Feb, [facility] [address] [id number] [address] [place] [address], [place] [address] 14 Jan, 2013 [facility] [address] [id number] [address] [place] [address], [place] [id number] 14 Jan, 2013 [facility] [address] [id number] [address] [place] [address], [place] [id number] 11 Jan, 2013 [facility] [address] [id number] [address] [place] [address], [place] [id number] 11 Jan, 2013 [facility] [address] [id number] [address] [place] [address], [place] [id number] Jan, [facility] [address] [id number] [address] [place] [address], [place] [id number] 10 Jan, 2013 [facility] [address] [id number] [address] [place] [address], [place] [id number] Jan, [facility] [address] [id number] [address] [place] [address], [place] [id number] 09 Jan, 2013 [facility] [address] [id number] [address] [place] [address], [place] [id number] Jan, [facility] [address] [id number] [address] [place] [address], [place] [id number] 26 Dec, 2012 [facility] [address] [id number] [address] [place] [id number] 16 Dec, 2012 [facility] [address] [id number] [address] [place] [id number] 16 Dec, 2012 [facility] [address] [id number] [address] [place] [address], [place] [id number] 13 Dec, 2012 [facility] [address] [id number] [address] [place] [address], [place] [id number] 17 Nov, 2012 [facility] [address] [id number] [address] [place] [id number] 17 Nov, 2012 [facility] [address] [id number] [address] [place] [id number] Nov, [facility] [address] [id number] [address] [place] [address], [place] [address] Nov, [facility] [address] [id number] [address] [place] [address], [place] [id number] Oct, [facility] [address] [id number] [address] [place] [address], [place] [id number] Sep, [facility] [address] [id number] [address] [place] [address], [place] [id number] August, [facility] [address] [id number] [address] [place] [address], [place] [id number] August, [facility] [address] [id number] [address] [place] [address], [place] [address] August, [facility] [address] [id number] [address] [place] [address], [place] [address] August, [facility] [address] [id number] [address] [place] [address], [place] [id number] August, [facility] [address] [id number] [address] [place] [address], [place] [id number] August, [facility] [address] [id number] [address] [place] [address], [place] [id number] August, [facility] [address] [id number] [address] [place] [address], [place] [address] August, [facility] [address] [id number] [address] [place] [address], [place] [id number] August, [facility] [address] [id number] [address] [place] [address], [place] [address] August, [facility] [address] [id number] [address] [place] [address], [place] [id number] August, [facility] [address] [id number] [address] [place] [address], [place] [id number] August, [facility] [address] [id number] [address] [place] [address], [place] [id number] Jul, [facility] [address] [id number] [address] [place] [address], [place] [id number] Jul, [facility] [address] [id number] [address] [place] [address], [place] [address] Jul, [facility] [address] [id number] [address] [place] [address], [place] [id number] 15 Jul, 2012 [facility] [address] [id number] [address] [place] [address], [place] [address] Jul, [facility] [address] [id number] [address] [place] [address], [place] [id number] Jul, [facility] [address] [id number] [address] [place] [address], [place] [address] Jul, [facility] [address] [id number] [address] [place] [address], [place] [id number] Jul, [facility] [address] [id number] [address] [place] [address], [place] [id number] Jul, [facility] [address] [id number] [address] [place] [address], [place] [id number] Jul, [facility] [address] [id number] [address] [place] [address], [place] [id number] Jul, [facility] [address] [id number] [address] [place] [address], [place] [address] Jun, [facility] [address] [id number] [address] [place] [address], [place] [address] Jun, [facility] [address] [id number] [address] [place] [address], [place] [id number] Jun, [facility] [address] [id number] [address] [place] [address], [place] [id number] Jun, [facility] [address] [id number] [address] [place] [address], [place] [id number] 28 May, 2012 [facility] [address] [id number] [address] [place] [address], [place] [id number] 14 May, 2012 [facility] [address] [id number] [address] [place] [address], [place] [id number] 05 May, 2012 [facility] [address] [id number] [address] [place] [address], [place] [address] May, [facility] [address] [id number] [address] [place] [address], [place] [address] May, [facility] [address] [id number] [address] [place] [address], [place] [address] May, [facility] [address] [id number] [address] [place] [address], [place] [address] Apr, [facility] [address] [id number] [address] [place] [address], [place] [address] Apr, [facility] [address] [id number] [address] [place] [address], [place] [address] Apr, [facility] [address] [id number] [address] [place] [address], [place] [address] Apr, [facility] [address] [id number] [address] [place] [address], [place] [address] 15 Mar, 2012 [facility] [address] [id number] [address] [place] [address], [place] [id number] 14 Mar, 2012 [facility] [address] [id number] [address] [place] [address], [place] [address] 14 Mar, 2012 [facility] [address] [id number] [address] [place] [address], [place] [address] 14 Mar, 2012 [facility] [address] [id number] [address] [place] [address], [place] [address] 14 Mar, 2012 [facility] [address] [id number] [address] [place] [address], [place] [id number] 06 Mar, 2012 [facility] [address] [id number] [address] [place] [address], [place] [address] Mar, [facility] [address] [id number] [address] [place] [address], [place] [address] Feb, [facility] [address] [id number] [address] [place] [address], [place] [address] Feb, [facility] [address] [id number] [address] [place] [address], [place] [address] Feb, [facility] [address] [id number] [address] [place] [address], [place] [address] Feb, [facility] [address] [id number] [address] [place] [address], [place] [address] Jan, [facility] [address] [id number] [address] [place] [address], [place] [address] Jan, [facility] [address] [id number] [address] [place] [address], [place] [address] Jan, [facility] [address] [id number] [address] [place] [address], [place] [address] Jan, [facility] [address] [id number] [address] [place] [address], [place] [address] Jan, [facility] [address] [id number] [address] [place] [address], [place] [address] Jan, [facility] [address] [id number] [address] [place] [address], [place] [address] Dec, [facility] [address] [id number] [address] [place] [address], [place] [address] Dec, [facility] [address] [id number] [address] [place] [address], [place] [address] Nov, [facility] [address] [id number] [address] [place] [address], [place] [address] Sep, [facility] [address] [id number] [address] [place] [address], [place] [address] August, [facility] [address] [id number] [address] [place] [address], [place] [address] August, [facility] [address] [id number] [address] [place] [address], [place] [address] August, [facility] [address] [id number] [address] [place] [address], [place] [address] August, [facility] [address] [id number] [address] [place] [address], [place] [address] August, [facility] [address] [id number] [address] [place] [address], [place] [address] Jun, [facility] [address] [id number] [address] [place] [address], [place] [address] Jun, [facility] [address] [id number] [address] [place] [address], [place] [address] Apr, [facility] [address] [id number] [address] [place] [address], [place] [address] Apr, [facility] [address] [id number] [address] [place] [address], [place] [address] Mar, [facility] [address] [id number] [address] [place] [id number] Feb, [facility] [address] [id number] [address] [place] [address], [place] [address] Feb, [facility] [address] [id number] [address] [place] [id number] 14 Feb, 2011 [facility] [address] [id number] [address] [place] [address], [place] [address] 17 Jan, 2011 [facility] [address] [id number] [address] [place] [address], [place] [address] 15 Jan, 2011 [facility] [address] [id number] [address] [place] [address], [place] [address] 15 Jan, 2011 [facility] [address] [id number] [address] [place] [id number] 14 Jan, 2011 [facility] [address] [facility] [id number] [address] [place] [id number] 15 May, 2010 [facility] [address] [facility] [id number] [address] [place] [id number] Mar, [facility] [address] [facility] [id number] [address] [place] [id number] Oct, [facility] [address] [facility] [id number] [address] [place] [id number] Sep, [facility] [address] [facility] [id number] [address] [place] [id number] Mar, [facility] [address] [facility] [id number] [address] [place] [id number] Jan, [facility] [address] [facility] [id number] [address] [place] [id number] Jan, [facility] [address] [facility] [id number] [address] [place] [id number] May, IMMUNIZATIONS No Known Immunizations SOCIAL HISTORY Never Assessed REASON FOR VISIT PLAN OF CARE VITAL SIGNS Height 62 in 2014-07-04 Weight 175.79 lbs 2014-07-04 Temperature 98.3 degrees Fahrenheit 2014-07-04 Heart Rate 80 bpm 2014-07-04 Respiratory Rate 22 2014-07-04 Blood pressure systolic 144 mmHg 2014-07-04 Blood pressure diastolic 98 mmHg 2014-07-04 MEDICATIONS Unknown Medications RESULTS No Results PROCEDURES No Known procedures INSTRUCTIONS MEDICATIONS ADMINISTERED No Known Medications MEDICAL (GENERAL) HISTORY Type Description Date Medical History hypertension Medical History Colposcopy with loop electro de excision of the cervix was performed 06/2012, mild squamous atypia (no definite dyplasia). Performed at [facility] Dr. Joy. Medical History Acute [...]
--- OUTSIDE RECORDS SUMMARY | 2019-11-23 05:57 | XMS REPORT ---
Author Author Liana Coe Doctor Organization [facility] Address Unknown Phone Unavailable Care Team Providers Care Fitter/Welder Name Role Phone Migration, Doctor Unavailable Unavailable PROBLEMS Type Condition ICD9-CM Code DGE47-DP Code Onset Dates Condition S tatus SNOMED Code Problem Hematuria, unspecified type R31.9 Ac tive 55042269 Problem Abnormal renal ultrasound R93.429 Acti ve [id number] Problem Anxiety F41.9 Active 95536575 Problem Hypokalemia E87.6 Active 76556443 Problem Abnormal glucose R73.09 Active 102 747038 Problem Chronic pain due to trauma G89.21 Act juanis [id number] Problem Neuroforaminal stenosis of spine M99.89 Active 393217425921 Problem Neck pain M54.2 Active 19664078 Problem Essential hypertension I10 Active 83213829 Problem Mixed hyperlipidemia E78.2 Active 78364488 ALLERGIES No Information ENCOUNTERS Encounter Location Date Diagnosis [place] [address] [address] Nov, Neuroforaminal stenosis of s pine M99.89 [facility] [address] [place] [id number] [address] [place] [address] Nov, Acute non-recurrent maxillar y sinusitis J01.00 [facility] [address] [place] [id number] [address] [place] [address] Oct, Hypokalemia E87.6 [facility] [address] [facility] [id number] [address] [place] [address] Oct, Wasp sting, undetermined int ent, initial encounter T63.464A and Cellulitis of left lower extremity L03.116 [facility] [address] [place] [id number] [address] [place] [address] Oct, Neuroforaminal stenosis of s pine M99.89 [facility] [address] [facility] [id number] [address] [place] [address] Sep, [place] [address] [facility] [id number] [address] [place] [address] Sep, [facility] [address] [facility] [id number] [address] [place] [address] 18 Sep, 2018 Routine screening for STI (s exually transmitted infection) Z11.3 [place] [address] [facility] [id number] [address] [place] [address] 14 Sep, 2018 Routine screening for STI (s exually transmitted infection) Z11.3 ; Well woman exam with routine gynecological exam Z01.419 and Breast cancer screening Z12.39 [place] [address] [facility] [id number] [address] [place] [address] 10 Sep, 2018 Neuroforaminal stenosis of s pine M99.89 [place] [address] [facility] [id number] [address] [place] [address] August, Neuroforaminal stenosis of s pine M99.89 [place] [address] [facility] [id number] [address] [place] [address] August, Neuroforaminal stenosis of s pine M99.89 ; Chronic pain due to trauma G89.21 and Mixed hyperlipidemia E78.2 [place] [address] [facility] [id number] [address] [place] [address] Jul, Viral upper respiratory illn ess J06.9 and Acute non-recurrent frontal sinusitis J01.10 [place] [address] [facility] [id number] [address] [place] [address] Jul, Congestion of nasal sinus R0 9.81 [place] [address] [facility] [id number] [address] [place] [address] Jul, Neuroforaminal stenosis of s pine M99.89 and Essential hypertension I10 [place] [address] [facility] [id number] [address] [place] [address] May, Neuroforaminal stenosis of s pine M99.89 [facility] [address] [id number] [address] [place] [address] May, [facility] [address] [id number] [address] [place] [address] May, Congestion of nasal sinus R0 9.81 [facility] [address] [id number] [address] [place] [address] May, [facility] [address] [id number] [address] [place] [address] Apr, Neuroforaminal stenosis of s pine M99.89 [facility] [address] [id number] [address] [place] [address] Apr, Neuroforaminal stenosis of s pine M99.89 and Chronic pain due to trauma G89.21 [facility] [address] [facility] [id number] [address] [place] [address] Mar, UTI (urinary tract infection ) N39.0 [facility] [address] [facility] [id number] [address] [place] [address] Mar, Vertigo R42 [facility] [address] [facility] [id number] [address] [place] [address] Mar, Neuroforaminal stenosis of s pine M99.89 [facility] [address] [facility] [id number] [address] [place] [address] Feb, Extensor tendon disruption M 67.89 [facility] [address] [id number] [address] [place] [address] Feb, Neuroforaminal stenosis of s pine M99.89 and High risk medication use Z79.899 [facility] [address] [facility] [id number] [address] [place] [address] Jan, Hypokalemia E87.6 [facility] [address] [facility] [id number] [address] [place] [address] Jan, Flank pain R10.9 and Acute r ight-sided low back pain without sciatica M54.5 [place] [address] [address] Jan, Hypokalemia E87.6 [place] [address] [place] [id number] [place] [address] Jan, [place] [address] [address] Jan, URI, acute J06.9 [place] [address] [address] Jan, Neuroforaminal stenosis of s pine M99.89 [place] [address] [address] 13 Dec, 2017 Lateral epicondylitis, right elbow M77.11 [place] [address] [address] 11 Dec, 2017 Allergic rhinitis due to monica rosalina, unspecified seasonality J30.1 and Allergic conjunctivitis of both eyes H10.13 [place] [address] [address] 10 Dec, 2017 Neuroforaminal stenosis of s pine M99.89 [place] [address] [address] Dec, Mixed hyperlipidemia E78.2 [place] [address] [address] 05 Dec, 2017 Abnormal glucose R73.09 ; Ab normal renal ultrasound R93.429 ; Dysuria R30.0 ; Cystitis without hematuria N30.90 ; Hypokalemia E87.6 ; Mixed hyperlipidemia E78.2 and Hematuria, unspecified type R31.9 [place] [address] [place] [id number] [address] [place] [address] Nov, Hypokalemia E87.6 ; Mixed hy perlipidemia E78.2 and Hematuria, unspecified type R31.9 [facility] [address] [id number] [address] [place] [address] Nov, [facility] [address] [id number] [address] [place] [address] Nov, Hypokalemia E87.6 [facility] [address] [id number] [address] [place] [address] Nov, [facility] [address] [id number] [address] [place] [address] Nov, Abnormal renal ultrasound R9 3.429 [place] [address] [id number] [address] [place] [address] Nov, Abnormal renal ultrasound R9 3.429 [place] [address] [id number] [address] [place] [address] Nov, Hematuria, unspecified type R31.9 and Neuroforaminal stenosis of spine M99.89 [place] [address] [id number] [address] [place] [address] Nov, Dysuria R30.0 [place] [address] [id number] [address] [place] [address] Oct, Lateral epicondylitis, right elbow M77.11 [place] [address] [id number] [address] [place] [address] Oct, Neuroforaminal stenosis of s pine M99.89 ; Visit for TB skin test Z11.1 and Essential hypertension I10 [facility] [address] [id number] [address] [place] [address] Oct, [facility] [address] [id number] [address] [place] [address] Oct, Neuroforaminal stenosis of s pine M99.89 [facility] [address] [id number] [address] [place] [address] 10 Jarred, 2018 Visit for TB skin test Z11.1 [place] [id number] [id number] [address] [place] [address] 05 Oct, 2017 Cystitis without hematuria N 30.90 [place] [address] [id number] [address] [place] [address] 28 Sep, 2017 Screening breast examination Z12.39 [place] [address] [id number] [address] [place] [address] 26 Sep, 2017 Dysuria R30.0 and Cystitis w ithout hematuria N30.90 [place] [address] [id number] [address] [place] [address] 14 Sep, 2017 Essential hypertension I10 a nd Neuroforaminal stenosis of spine M99.89 [place] [address] [id number] [address] [place] [address] 04 Sep, 2017 Abnormal glucose R73.09 [place] [address] [id number] [address] [place] [address] August, Lateral epicondylitis, right elbow M77.11 [place] [address] [id number] [address] [place] [address] August, Screen for STD (sexually tra nsmitted disease) Z11.3 [place] [address] [facility] [id number] [address] [place] [address] August, Neuroforaminal stenosis of s pine M99.89 ; Mixed hyperlipidemia E78.2 ; Elevated fasting glucose R73.01 ; Screening mammogram, encounter for Z12.31 and Encounter for well woman exam without gynecological exam Z00.00 [place] [address] [id number] [address] [place] [address] August, Neuroforaminal stenosis of s pine M99.89 [place] [address] [id number] [address] [place] [address] August, Essential hypertension I10 ; Hypokalemia E87.6 and Mixed hyperlipidemia E78.2 [place] [address] [id number] [address] [place] [address] Jul, [facility] [address] [id number] [address] [place] [address] Jul, Neuroforaminal stenosis of s jose M99.89 [facility] [address] [id number] [address] [place] [address] Jul, Lateral epicondylitis, right elbow M77.11 [facility] [address] [id number] [address] [place] [address] Jul, [facility] [address] [id number] [address] [place] [address] Jun, High ankle sprain of right l ower extremity, initial encounter S93.431A [facility] [address] [id number] [address] [place] [address] Jun, Essential hypertension I10 [facility] [address] [id number] [address] [place] [address] Jun, [facility] [address] [id number] [address] [place] [address] Jun, [facility] [address] [id number] [address] [place] [address] Jun, Neuroforaminal stenosis of s jose M99.89 [facility] [address] [id number] [address] [place] [address] Jun, Pain of right upper extremit y M79.601 and Essential hypertension I10 [facility] [address] [id number] [address] [place] [address] Jun, [facility] [address] [facility] [id number] [address] [place] [address] Jun, Dysuria R30.0 ; Acute cystit is with hematuria N30.01 and Screen for STD (sexually transmitted disease) Z11.3 [facility] [address] [id number] [address] [place] [address] May, Chronic pain due to trauma G 89.21 [place] [address] [facility] [id number] [address] [place] [address] May, Essential hypertension I10 [place] [address] [facility] [id number] [address] [place] [address] May, Neuroforaminal stenosis of s pine M99.89 [place] [address] [place] [id number] [address] [place] [address] Apr, Allergic reaction, initial e ncounter T78.40XA [place] [address] [address] Apr, Low back pain, unspecified b ack pain laterality, unspecified chronicity, with sciatica presence unspecified M54.5 ; Acute cystitis with hematuria N30.01 ; Neuroforaminal stenosis of spine M99.89 ; Bilateral acute serous otitis media, recurrence not specified H65.03 ; Mixed hyperlipidemia E78.2 ; Essential hypertension I10 ; Immunization counseling Z71.89 and Encounter for immunization Z23 [place] [address] [address] Apr, Neck pain M54.2 [place] [address] [place] [id number] [address] [place] [address] Mar, Neuroforaminal stenosis of s pine M99.89 [place] [address] [place] [id number] [address] [place] [address] Mar, Pharyngitis due to other org anism J02.8 [place] [address] [place] [id number] [address] [place] [address] Feb, Neuroforaminal stenosis of s pine M99.89 [place] [address] [place] [id number] [address] [place] [address] 08 Feb, 2017 UTI (urinary tract infection ) N39.0 [place] [address] [place] [id number] [address] [place] [address] Feb, Recent urinary tract infecti on Z87.440 ; Neuroforaminal stenosis of spine M99.89 ; Neck pain M54.2 ; Chronic pain due to trauma G89.21 and Recurrent UTI N39.0 [facility] [address] [id number] [address] [place] [address] Feb, [facility] [address] [id number] [address] [place] [address] Jan, Neuroforaminal stenosis of s pine M99.89 [facility] [address] [id number] [address] [place] [address] Dec, Neuroforaminal stenosis of s pine M99.89 [facility] [address] [id number] [address] [place] [address] 18 Dec, 2016 Acute seasonal allergic rhin itis due to pollen J30.1 [facility] [address] [id number] [address] [place] [address] 08 Dec, 2016 [facility] [address] [id number] [address] [place] [address] 08 Dec, 2016 Acute seasonal allergic rhin itis, unspecified trigger J30.2 ; Allergic conjunctivitis of both eyes H10.13 and Dysfunction of both eustachian tubes H69.83 [facility] [address] [id number] [address] [place] [address] 07 Dec, 2016 [facility] [address] [id number] [address] [place] [address] Dec, Nevus D22.9 [facility] [address] [id number] [address] [place] [address] Nov, Chronic pain due to trauma G 89.21 and Neuroforaminal stenosis of spine M99.89 [facility] [address] [id number] [address] [place] [address] Nov, Neuroforaminal stenosis of s pine M99.89 ; Essential hypertension I10 ; Mixed hyperlipidemia E78.2 ; Hypokalemia E87.6 ; Neck pain M54.2 and Nevus D22.9 [facility] [address] [id number] [address] [place] [address] Oct, Neuroforaminal stenosis of s pine M99.89 [facility] [address] [id number] [address] [place] [address] Sep, Neuroforaminal stenosis of s pine M99.89 [facility] [address] [id number] [address] [place] [address] Sep, [facility] [address] [id number] [address] [place] [address] August, [facility] [address] [id number] [address] [place] [address] August, Neck pain M54.2 and Neurofor aminal stenosis of spine M99.89 [facility] [address] [id number] [address] [place] [address] August, Routine gynecological examin ation Z01.419 and Screening breast examination Z12.39 [facility] [address] [id number] [address] [place] [address] Jul, [facility] [address] [id number] [address] [place] [address] Jul, [facility] [address] [id number] [address] [place] [address] Jul, Neuroforaminal stenosis of s pine M99.89 [facility] [address] [id number] [address] [place] [address] Jul, [facility] [address] [id number] [address] [place] [address] Jul, Neuroforaminal stenosis of l umbar 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 [facility] [address] [id number] [address] [place] [address] Jul, [facility] [address] [facility] [id number] [address] [place] [address] Jul, [facility] [address] [facility] [id number] [address] [place] [address] Jun, Neuroforaminal stenosis of s jose M99.89 [facility] [address] [place] [id number] [address] [place] [address] Jun, Uterine leiomyoma, unspecifi ed location D25.9 and Allergic reaction caused by a drug, initial encounter T78.40XA [facility] [address] [facility] [id number] [address] [place] [address] Jun, [place] [address] [facility] [id number] [address] [place] [address] May, UTI symptoms R39.9 and Pain of right sacroiliac joint M53.3 [place] [address] [place] [id number] [address] [place] [address] May, Neuroforaminal stenosis of s jose M99.89 [place] [address] [facility] [id number] [address] [place] [address] May, [place] [address] [facility] [id number] [address] [place] [address] May, Acute mucoid otitis media of left ear H65.112 and Acute non- recurrent maxillary sinusitis J01.00 [place] [address] [place] [id number] [address] [place] [address] May, Acute bacterial conjunctivit is of both eyes H10.33 ; Left arm pain M79.602 and Hypokalemia E87.6 [place] [address] [facility] [id number] [address] [place] [address] Apr, [place] [address] [facility] [id number] [address] [place] [address] Apr, Neuroforaminal stenosis of s pine M99.89 ; Neck pain M54.2 ; Chronic pain due to trauma G89.21 ; Mixed hyperlipidemia E78.2 ; Essential hypertension I10 and Hypokalemia E87.6 [facility] [address] [facility] [id number] [address] [place] [address] Mar, Oral candidiasis B37.0 ; Nathaniel roforaminal stenosis of spine M99.89 ; Neck pain M54.2 and Chronic pain due to trauma G89.21 [place] [address] [id number] [address] [place] [address] Feb, [facility] [address] [id number] [address] [place] [address] Feb, [facility] [address] [facility] [id number] [address] [place] [address] Feb, UTI (urinary tract infection ) N39.0 [place] [address] [facility] [id number] [address] [place] [address] Feb, Dysuria R30.0 [place] [address] [facility] [id number] [address] [place] [address] Feb, Dysuria R30.0 [place] [address] [facility] [id number] [address] [place] [address] Feb, Neuroforaminal stenosis of s pine M99.89 ; Neck pain M54.2 ; Essential hypertension I10 ; Chronic pain due to trauma G89.21 ; Dysuria R30.0 ; Abnormal MRI, shoulder R93.8 and Acute cystitis without hematuria N30.00 [facility] [address] [id number] [address] [place] [address] Jan, [facility] [address] [id number] [address] [place] [phone] Jan, [facility] [address] [facility] [id number] [address] [place] [address] Jan, [facility] [address] [facility] [id number] [address] [place] [address] Jan, Abnormal MRI R93.8 [facility] [address] [id number] [address] [place] [address] 29 Dec, 2015 [facility] [address] [id number] [address] [place] [address] 15 Dec, 2015 Acute pain of left shoulder M25.512 [facility] [address] [id number] [address] [place] [address] 09 Dec, 2015 [facility] [address] [id number] [address] [place] [address] 08 Dec, 2015 [facility] [address] [id number] [address] [place] [address] 07 Dec, 2015 Acute pain of left shoulder M25.512 [facility] [address] [id number] [address] [place] [address] Nov, [facility] [address] [id number] [address] [place] [address] Nov, Neuroforaminal stenosis of s pine M99.89 ; Neck pain M54.2 ; Abnormal mammogram R92.8 ; Essential hypertension I10 and Chronic pain due to trauma G89.21 [facility] [address] [id number] [address] [place] [phone] Nov, [facility] [address] [id number] [address] [place] [id number] Oct, Acute stress disorder F43.0 [facility] [address] [id number] [address] [place] [phone] Oct, [facility] [address] [id number] [address] [place] [id number] Oct, [facility] [address] [id number] [address] [place] [id number] 05 Oct, 2015 [facility] [address] [id number] [address] [place] [phone] Sep, [facility] [address] [id number] [address] [place] [id number] August, [facility] [address] [id number] [address] [place] [phone] Jul, Neuroforaminal stenosis of s pine M99.89 ; Neck pain M54.2 ; Abnormal mammogram R92.8 and Essential hypertension I10 [facility] [address] [id number] [address] [place] [id number] Jul, [facility] [address] [id number] [address] [place] [phone] Jul, [facility] [address] [id number] [address] [place] [phone] Jul, Abnormal mammogram R92.8 [facility] [address] [id number] [address] [place] [id number] Jul, [facility] [address] [id number] [address] [place] [id number] Jul, UTI (urinary tract infection ) N39.0 [facility] [address] [id number] [address] [place] [id number] Jul, Dysuria R30.0 [facility] [address] [id number] [address] [place] [id number] Jun, [facility] [address] [id number] [address] [place] [phone] Jun, [facility] [address] [id number] [address] [place] [id number] Jun, Hypokalemia E87.6 and Hematu martina R31.9 [facility] [address] [id number] [address] [place] [address] Jun, Hypokalemia E87.6 [facility] [address] [id number] [address] [place] [address] Jun, [facility] [address] [place] [address] Jun, Hypokalemia E87.6 [facility] [address] [address] Jun, Hypokalemia E87.6 [place] [address] [place] [id number] [place] [address] 15 Jun, 2015 Neuroforaminal stenosis of s pine M99.89 ; Hypokalemia E87.6 ; Neck pain M54.2 ; Essential hypertension I10 ; Mixed hyperlipidemia E78.2 and Screening breast examination Z12.39 [place] [address] [address] Jun, Dysuria R30.0 ; UTI (urinary tract infection) N39.0 and Hematuria R31.9 [place] [address] [address] May, [facility] [address] [address] 18 May, 2015 High risk sexual behavior Z7 2.51 ; Hypokalemia E87.6 ; Neuroforaminal stenosis of spine M99.89 ; Neck pain M54.2 ; Essential hypertension I10 ; Mixed hyperlipidemia E78.2 ; STD exposure Z20.2 and Concern about STD in female without diagnosis Z71.1 [place] [address] [address] 16 May, 2015 Neuroforaminal stenosis of s pine M99.89 ; Neck pain M54.2 ; Hypokalemia E87.6 ; Essential hypertension I10 and Mixed hyperlipidemia E78.2 [place] [address] [address] 11 May, 2015 [facility] [address] [place] [id number] [address] [place] [address] 08 May, 2015 High risk sexual behavior Z7 2.51 ; STD exposure Z20.2 and Concern about STD in female without diagnosis Z71.1 [place] [address] [address] May, [place] [address] [address] Apr, Neuroforaminal stenosis of s pine M99.89 ; Mixed hyperlipidemia E78.2 ; Essential hypertension I10 and Hypokalemia E87.6 [place] [address] [address] Mar, [place] [address] [address] Mar, Hypokalemia E87.6 [place] [address] [address] Mar, Neuroforaminal stenosis of s pine M99.89 ; Mixed hyperlipidemia E78.2 ; Neck pain M54.2 ; Essential hypertension I10 ; Abnormal fasting glucose R73.09 ; Hypokalemia E87.6 and Constipation K59.00 [place] [address] [address] Feb, Neuroforaminal stenosis of s jose M99.89 ; Mixed hyperlipidemia E78.2 ; Neck pain M54.2 ; Essential hypertension I10 ; Abnormal fasting glucose R73.09 ; Hypokalemia E87.6 and Constipation K59.00 [place] [address] [address] Feb, Elevated fasting blood sugar R73.01 [place] [address] [address] Feb, Elevated fasting blood sugar R73.01 [place] [address] [address] Feb, Hair loss L65.9 [place] [address] [address] Feb, Sinusitis J32.9 ; Essential hypertension I10 and Hair loss L65.9 [place] [id number] [id number] [address] [place] [address] Jan, [place] [address] [id number] [address] [place] [address] Jan, Essential hypertension I10 ; Neuroforaminal stenosis of spine M99.89 ; Neck pain M54.2 ; Mixed hyperlipidemia E78.2 and Anxiety F41.9 [place] [address] [id number] [address] [place] [address] Jan, [place] [address] [id number] [address] [place] [address] Jan, Mixed hyperlipidemia E78.2 ; Essential (primary) hypertension I10 ; Strain of muscle, fascia and tendon at neck level, subsequent encounter S16.1XXD and Tension-type headache, unspecified, not intractable G44.209 [place] [address] [id number] [address] [place] [address] Dec, Lumbar back pain 724.2 and N euroforaminal stenosis of spine 724.00 [place] [address] [id number] [address] [place] [address] Nov, [place] [address] [id number] [address] [place] [address] Nov, Lumbar back pain 724.2 and N euroforaminal stenosis of spine 724.00 [place] [address] [id number] [address] [place] [address] Nov, Edema 782.3 ; Lumbar back pa in 724.2 ; Essential hypertension, benign 401.1 ; Hyperlipemia 272.4 ; Neuroforaminal stenosis of spine 724.00 and Post-concussion headache 339.20 [place] [address] [id number] [address] [place] [address] Nov, [place] [address] [facility] [id number] [address] [place] [address] Nov, [facility] [address] [id number] [address] [place] [address] Oct, Essential hypertension, sheridan gn 401.1 [facility] [address] [id number] [address] [place] [address] Oct, Edema 782.3 ; Lumbar back pa in 724.2 ; Essential hypertension, benign 401.1 ; Hyperlipemia 272.4 ; Neuroforaminal stenosis of spine 724.00 and Post-concussion headache 339.20 [place] [address] [id number] [address] [place] [address] Oct, [place] [address] [facility] [id number] [address] [place] [address] Oct, Edema 782.3 [place] [address] [facility] [id number] [place] [address] Oct, Lumbar back pain 724.2 [place] [address] [facility] [id number] [address] [place] [address] Oct, Cervicalgia 723.1 ; Lumbar b ack pain 724.2 and High risk medication use V58.69 [place] [address] [facility] [id number] [address] [place] [address] Sep, [place] [address] [facility] [id number] [address] [place] [address] Sep, Lumbar strain 847.2 [place] [address] [facility] [id number] [address] [place] [address] August, Edema 782.3 and Eustachian t ube dysfunction 381.81 [place] [address] [facility] [id number] [address] [place] [address] August, [place] [address] [facility] [id number] [address] [place] [address] August, Eustachian tube dysfunction 381.81 [place] [address] [facility] [id number] [address] [place] [address] Jul, Otalgia 388.70 and Otitis me jonathon 382.9 [facility] [address] [id number] [address] [place] [address] Jul, [facility] [address] [id number] [address] [place] [address] Jul, [facility] [address] [id number] [address] [place] [address] Jul, [facility] [address] [id number] [address] [place] [address] Jul, [facility] [address] [id number] [address] [place] [address] Jul, [facility] [address] [id number] [address] [place] [address] Jun, [facility] [address] [id number] [address] [place] [address] Jun, [facility] [address] [id number] [address] [place] [address] Jun, [facility] [address] [id number] [address] [place] [address] May, [facility] [address] [id number] [address] [place] [address] May, [facility] [address] [id number] [address] [place] [address] May, [facility] [address] [id number] [address] [place] [address] May, [facility] [address] [id number] [address] [place] [address] May, [facility] [address] [id number] [address] [place] [address] May, [facility] [address] [id number] [address] [place] [address] May, [facility] [address] [id number] [address] [place] [address], [place] [address] May, [facility] [address] [id number] [address] [place] [address], [place] [address] May, [facility] [address] [id number] [address] [place] [address], [place] [address] May, [facility] [address] [id number] [address] [place] [address], [place] [address] Apr, [facility] [address] [id number] [address] [place] [address], [place] [address] Apr, [facility] [address] [id number] [address] [place] [address], [place] [address] Apr, [facility] [address] [id number] [address] [place] [address], [place] [address] Apr, [facility] [address] [id number] [address] [place] [address], [place] [address] Apr, [facility] [address] [id number] [address] [place] [address], [place] [address] Apr, [facility] [address] [id number] [address] [place] [address], [place] [address] Apr, [facility] [address] [id number] [address] [place] [address], [place] [address] Apr, [facility] [address] [id number] [address] [place] [address], [place] [address] Apr, [facility] [address] [id number] [address] [place] [address], [place] [address] Apr, [facility] [address] [id number] [address] [place] [address], [place] [address] Apr, [facility] [address] [id number] [address] [place] [address], [place] [address] Apr, [facility] [address] [id number] [address] [place] [address], [place] [address] Apr, [facility] [address] [id number] [address] [place] [address], [place] [address] Apr, [facility] [address] [id number] [address] [place] [address], [place] [address] Apr, [facility] [address] [id number] [address] [place] [address], [place] [address] Mar, [facility] [address] [id number] [address] [place] [address], [place] [address] Mar, [facility] [address] [id number] [address] [place] [address], [place] [address] Mar, [facility] [address] [id number] [address] [place] [address], [place] [address] Mar, [facility] [address] [id number] [address] [place] [address], [place] [address] Feb, [facility] [address] [id number] [address] [place] [address], [place] [address] Feb, [facility] [address] [id number] [address] [place] [address], [place] [address] Feb, [facility] [address] [id number] [address] [place] [address], [place] [address] Feb, [facility] [address] [id number] [address] [place] [address], [place] [address] Jan, [facility] [address] [id number] [address] [place] [address], [place] [address] Jan, [facility] [address] [id number] [address] [place] [address], [place] [address] Jan, [facility] [address] [id number] [address] [place] [address], [place] [address] Jan, [facility] [address] [id number] [address] [place] [address], [place] [address] Jan, [facility] [address] [id number] [address] [place] [address], [place] [address] Jan, [facility] [address] [id number] [address] [place] [address], [place] [address] Jan, [facility] [address] [id number] [address] [place] [address], [place] [address] Jan, [facility] [address] [id number] [address] [place] [address], [place] [address] Dec, [facility] [address] [id number] [address] [place] [address], [place] [address] Dec, [facility] [address] [id number] [address] [place] [address], [place] [address] Dec, [facility] [address] [id number] [address] [place] [address], [place] [address] Dec, [facility] [address] [id number] [address] [place] [address], [place] [address] Oct, [facility] [address] [id number] [address] [place] [address], [place] [address] Oct, [facility] [address] [id number] [address] [place] [address], [place] [address] Oct, [facility] [address] [id number] [address] [place] [address], [place] [address] Oct, [facility] [address] [id number] [address] [place] [address], [place] [address] Oct, [facility] [address] [id number] [address] [place] [address], [place] [address] Oct, [facility] [address] [id number] [address] [place] [address], [place] [address] Oct, [facility] [address] [id number] [address] [place] [address], [place] [address] Oct, [facility] [address] [id number] [facility] [place] [address] Sep, [facility] [address] [id number] [facility] [place] [address] Sep, [facility] [address] [id number] [facility] [place] [address] Sep, [facility] [address] [id number] [address] [place] [address], [place] [address] Sep, [facility] [address] [id number] [address] [place] [address], [place] [address] Sep, [facility] [address] [id number] [address] [place] [address], [place] [address] Sep, [facility] [address] [id number] [address] [place] [address], [place] [address] Sep, [facility] [address] [id number] [address] [place] [address], [place] [address] Sep, [facility] [address] [id number] [address] [place] [address], [place] [address] Sep, [facility] [address] [id number] [address] [place] [address], [place] [address] Sep, [facility] [address] [id number] [address] [place] [address], [place] [address] August, [facility] [address] [id number] [address] [place] [address], [place] [address] August, [facility] [address] [id number] [address] [place] [address], [place] [address] August, [facility] [address] [id number] [address] [place] [address], [place] [address] August, [facility] [address] [id number] [address] [place] [address], [place] [address] August, [facility] [address] [id number] [address] [place] [address], [place] [address] August, [facility] [address] [id number] [address] [place] [address], [place] [address] August, [facility] [address] [id number] [address] [place] [address], [place] [address] August, [facility] [address] [id number] [address] [place] [address], [place] [address] August, [facility] [address] [id number] [address] [place] [address], [place] [address] August, [facility] [address] [id number] [address] [place] [address], [place] [address] August, [facility] [address] [id number] [address] [place] [address], [place] [address] August, [facility] [address] [id number] [address] [place] [address], [place] [address] Jul, [facility] [address] [id number] [address] [place] [address], [place] [address] Jul, [facility] [address] [id number] [address] [place] [address], [place] [address] Jul, [facility] [address] [id number] [address] [place] [address], [place] [address] Jul, [facility] [address] [id number] [address] [place] [address], [place] [address] Jul, [facility] [address] [id number] [address] [place] [address], [place] [address] Jul, [facility] [address] [id number] [address] [place] [address], [place] [address] Jun, [facility] [address] [id number] [address] [place] [address], [place] [address] Jun, [facility] [address] [id number] [address] [place] [address], [place] [address] May, [facility] [address] [id number] [address] [place] [address] 10 May, 2013 [facility] [address] [id number] [address] [place] [address], [place] [address] Apr, [facility] [address] [id number] [address] [place] [address], [place] [address] Apr, [facility] [address] [id number] [address] [place] [address], [place] [address] Apr, [facility] [address] [id number] [address] [place] [address], [place] [address] Apr, [facility] [address] [id number] [address] [place] [address], [place] [address] Apr, [facility] [address] [id number] [address] [place] [address], [place] [address] Apr, [facility] [address] [id number] [address] [place] [address], [place] [address] Apr, [facility] [address] [id number] [address] [place] [address], [place] [address] Apr, [facility] [address] [id number] [address] [place] [address], [place] [address] Apr, [facility] [address] [id number] [address] [place] [address], [place] [address] Apr, [facility] [address] [id number] [address] [place] [address], [place] [address] Apr, [facility] [address] [id number] [address] [place] [address], [place] [address] Apr, [facility] [address] [id number] [address] [place] [address], [place] [address] Apr, [facility] [address] [id number] [address] [place] [address], [place] [address] Mar, [facility] [address] [id number] [address] [place] [address], [place] [address] Mar, [facility] [address] [id number] [address] [place] [address], [place] [address] Mar, [facility] [address] [id number] [address] [place] [address], [place] [address] Mar, [facility] [address] [id number] [address] [place] [address], [place] [address] Feb, [facility] [address] [id number] [address] [place] [address], [place] [address] Feb, [facility] [address] [id number] [address] [place] [address], [place] [address] Feb, [facility] [address] [id number] [address] [place] [address], [place] [address] Feb, [facility] [address] [id number] [address] [place] [address], [place] [address] Jan, [facility] [address] [id number] [address] [place] [address], [place] [address] Jan, [facility] [address] [id number] [address] [place] [address], [place] [address] Jan, [facility] [address] [id number] [address] [place] [address], [place] [address] Jan, [facility] [address] [id number] [address] [place] [address], [place] [address] Jan, [facility] [address] [id number] [address] [place] [address], [place] [address] Jan, [facility] [address] [id number] [address] [place] [address], [place] [address] Jan, [facility] [address] [id number] [address] [place] [address], [place] [address] Jan, [facility] [address] [id number] [address] [place] [address], [place] [address] Jan, [facility] [address] [id number] [address] [place] [id number] 26 Dec, 2012 [facility] [address] [id number] [address] [place] [address], [place] [address] 16 Dec, 2012 [facility] [address] [id number] [address] [place] [address], [place] [address] 16 Dec, 2012 [facility] [address] [id number] [address] [place] [address], [place] [address] 13 Dec, 2012 [facility] [address] [id number] [address] [place] [address], [place] [address] Nov, [facility] [address] [id number] [address] [place] [address], [place] [address] Nov, [facility] [address] [id number] [address] [place] [address], [place] [address] Nov, [facility] [address] [id number] [address] [place] [address], [place] [address] Nov, [facility] [address] [id number] [address] [place] [address], [place] [address] Oct, [facility] [address] [id number] [address] [place] [address], [place] [address] Sep, [facility] [address] [id number] [address] [place] [address], [place] [address] August, [facility] [address] [id number] [address] [place] [address], [place] [address] August, [facility] [address] [id number] [address] [place] [address], [place] [address] August, [facility] [address] [id number] [address] [place] [address], [place] [address] August, [facility] [address] [id number] [address] [place] [address], [place] [address] August, [facility] [address] [id number] [address] [place] [address], [place] [address] August, [facility] [address] [id number] [address] [place] [address], [place] [address] August, [facility] [address] [id number] [address] [place] [address], [place] [address] August, [facility] [address] [id number] [address] [place] [address], [place] [address] August, [facility] [address] [id number] [address] [place] [address], [place] [address] August, [facility] [address] [id number] [address] [place] [address], [place] [address] August, [facility] [address] [id number] [address] [place] [address], [place] [address] August, [facility] [address] [id number] [address] [place] [address], [place] [address] Jul, [facility] [address] [id number] [address] [place] [address], [place] [address] Jul, [facility] [address] [id number] [address] [place] [address], [place] [address] Jul, [facility] [address] [id number] [address] [place] [address], [place] [address] Jul, [facility] [address] [id number] [address] [place] [address], [place] [address] Jul, [facility] [address] [id number] [address] [place] [address], [place] [address] Jul, [facility] [address] [id number] [address] [place] [address], [place] [address] Jul, [facility] [address] [id number] [address] [place] [address], [place] [address] Jul, [facility] [address] [id number] [address] [place] [address], [place] [address] Jul, [facility] [address] [id number] [address] [place] [address], [place] [address] Jul, [facility] [address] [id number] [address] [place] [address], [place] [address] Jul, [facility] [address] [id number] [address] [place] [address], [place] [address] Jun, [facility] [address] [id number] [address] [place] [address], [place] [address] Jun, [facility] [address] [id number] [address] [place] [address], [place] [address] Jun, [facility] [address] [id number] [address] [place] [address], [place] [address] Jun, [facility] [address] [id number] [address] [place] [address], [place] [address] May, [facility] [address] [id number] [address] [place] [address], [place] [address] May, [facility] [address] [id number] [address] [place] [address], [place] [address] 05 May, 2012 [facility] [address] [id number] [address] [place] [address], [place] [address] May, [facility] [address] [id number] [address] [place] [address], [place] [address] May, [facility] [address] [id number] [address] [place] [address], [place] [address] May, [facility] [address] [id number] [address] [place] [address], [place] [address] Apr, [facility] [address] [id number] [address] [place] [address], [place] [address] Apr, [facility] [address] [id number] [address] [place] [address], [place] [address] Apr, [facility] [address] [id number] [address] [place] [address], [place] [address] Apr, [facility] [address] [id number] [address] [place] [address], [place] [address] 15 Mar, 2012 [facility] [address] [id number] [address] [place] [address], [place] [address] 14 Mar, 2012 [facility] [address] [id number] [address] [place] [address], [place] [address] 14 Mar, 2012 [facility] [address] [id number] [address] [place] [address], [place] [address] 14 Mar, 2012 [facility] [address] [id number] [address] [place] [address], [place] [address] 14 Mar, 2012 [facility] [address] [id number] [address] [place] [address], [place] [address] 06 Mar, 2012 [facility] [address] [id number] [address] [place] [address], [place] [address] 06 Mar, 2012 [facility] [address] [id number] [address] [place] [address], [place] [address] Feb, [facility] [address] [id number] [address] [place] [address], [place] [address] Feb, [facility] [address] [id number] [address] [place] [address], [place] [address] Feb, [facility] [address] [id number] [address] [place] [address], [place] [address] Feb, [facility] [address] [id number] [address] [place] [address], [place] [address] Jan, [facility] [address] [id number] [address] [place] [address], [place] [address] Jan, [facility] [address] [id number] [address] [place] [address], [place] [address] 10 Jan, 2012 [facility] [address] [id number] [address] [place] [address], [place] [address] 10 Jan, 2012 [facility] [address] [id number] [address] [place] [address], [place] [address] 03 Jan, 2012 [facility] [address] [id number] [address] [place] [address], [place] [address] Jan, [facility] [address] [id number] [address] [place] [address], [place] [address] Dec, [facility] [address] [id number] [address] [place] [address], [place] [address] Dec, [facility] [address] [id number] [address] [place] [address], [place] [address] Nov, [facility] [address] [id number] [address] [place] [address], [place] [address] Sep, [facility] [address] [id number] [address] [place] [address], [place] [address] August, [facility] [address] [id number] [address] [place] [address], [place] [address] August, [facility] [address] [id number] [address] [place] [address], [place] [address] August, [facility] [address] [id number] [address] [place] [address], [place] [address] August, [facility] [address] [id number] [address] [place] [address], [place] [address] August, [facility] [address] [id number] [address] [place] [address], [place] [address] Jun, [facility] [address] [id number] [address] [place] [address], [place] [address] Jun, [facility] [address] [id number] [address] [place] [address], [place] [address] Apr, [facility] [address] [id number] [address] [place] [address], [place] [address] Apr, [facility] [address] [id number] [address] [place] [address], [place] [address] Mar, [facility] [address] [id number] [place] [address] Feb, [facility] [address] [id number] [address] [place] [address] 14 Feb, 2011 [facility] [address] [id number] [address] [place] [address] 14 Feb, 2011 [facility] [address] [id number] [address] [place] [address] 17 Jan, 2011 [facility] [address] [id number] [address] [place] [address] 15 Jan, 2011 [facility] [address] [id number] [address] [place] [id number] 15 Jan, 2011 [facility] [address] [id number] [address] [place] [address] 14 Jan, 2011 [facility] [address] [id number] [address] [place] [address] 15 May, 2010 [facility] [address] [id number] [address] [place] [address] Mar, [facility] [address] [id number] [address] [place] [address] Oct, [facility] [address] [id number] [address] [place] [address] Sep, [facility] [address] [id number] [address] [place] [address] Mar, [facility] [address] [id number] [address] [place] [address] Jan, [facility] [address] [id number] [address] [place] [address] Jan, [facility] [address] [id number] [address] [place] [address] May, IMMUNIZATIONS No Known Immunizations SOCIAL HISTORY Never Assessed REASON FOR VISIT PLAN OF CARE VITAL SIGNS Blood pressure systolic 158 mmHg 2014-01-09 Blood pressure diastolic 82 mmHg 2014-01-09 MEDICATIONS Unknown Medications RESULTS No Results PROCEDURES Procedure Date Ordered Result Body Site BLOOD PRESSURE, MEASURED Jan 09, 2014 INSTRUCTIONS MEDICATIONS ADMINISTERED No Known Medications MEDICAL (GENERAL) HISTORY Type Description Date Medical History hypertension Medical History Colposcopy with loop electro de excision of the cervix was performed 06/2012, mild squamous atypia (no definite dyplasia). Performed at [facility] Dr. Joy. Medical History [...]
--- OUTSIDE RECORDS SUMMARY | 2019-11-23 05:58 | XMS REPORT ---
Author Author Liana Coe Doctor Organization [facility] Address Unknown Phone Unavailable Care Team Providers Care Pi/Senior Research Associate Name Role Phone Migration, Doctor Unavailable Unavailable PROBLEMS Type Condition ICD9-CM Code [id number] Code Onset Dates Condition S tatus SNOMED Code Problem Hematuria, unspecified type R31.9 Ac tive 46619491 Problem Abnormal renal ultrasound R93.429 Acti ve [id number] Problem Anxiety F41.9 Active 20439878 Problem Hypokalemia E87.6 Active 74626682 Problem Abnormal glucose R73.09 Active 102 360563 Problem Chronic pain due to trauma G89.21 Act juanis 554643259 Problem Neuroforaminal stenosis of spine M99.89 Active [id number] Problem Neck pain M54.2 Active 14894044 Problem Essential hypertension I10 Active 26460256 Problem Mixed hyperlipidemia E78.2 Active 55542517 ALLERGIES No Information ENCOUNTERS Encounter Location Date Diagnosis [place] [id number] [facility] [id number] [address] [place] [phone] Oct, Neuroforaminal stenosis of s pine M99.89 [facility] [address] [facility] [id number] [address] [place] [id number] 24 Sep, 2018 [facility] [address] [facility] [id number] [address] [place] [phone] Sep, [place] [address] [facility] [id number] [address] [place] [id number] 18 Sep, 2018 Routine screening for STI (s exually transmitted infection) Z11.3 [place] [address] [facility] [id number] [address] [place] [phone] 14 Sep, 2018 Routine screening for STI (s exually transmitted infection) Z11.3 ; Well woman exam with routine gynecological exam Z01.419 and Breast cancer screening Z12.39 [place] [address] [id number] [address] [place] [phone] Sep, Neuroforaminal stenosis of s pine M99.89 [facility] [address] [place] [id number] [address] [place] [id number] August, Neuroforaminal stenosis of s pine M99.89 [facility] [address] [place] [id number] [address] [place] [phone] August, Neuroforaminal stenosis of s pine M99.89 ; Chronic pain due to trauma G89.21 and Mixed hyperlipidemia E78.2 [facility] [address] [place] [id number] [address] [place] [address] Jul, Viral upper respiratory illn ess J06.9 and Acute non-recurrent frontal sinusitis J01.10 [place] [address] [place] [id number] [place] [phone] Jul, Congestion of nasal sinus R0 9.81 [place] [address] [place] [id number] [place] [phone] Jul, Neuroforaminal stenosis of s pine M99.89 and Essential hypertension I10 [place] [address] [place] [id number] [address] [place] [phone] May, Neuroforaminal stenosis of s pine M99.89 [place] [address] [place] [id number] [address] [place] [phone] May, [facility] [address] [place] [id number] [address] [place] [phone] May, Congestion of nasal sinus R0 9.81 [facility] [address] [facility] [id number] [address] [place] [phone] May, [facility] [address] [place] [id number] [address] [place] [phone] Apr, Neuroforaminal stenosis of s pine M99.89 [facility] [address] [place] [id number] [address] [place] [phone] Apr, Neuroforaminal stenosis of ayla garcia M99.89 and Chronic pain due to trauma G89.21 [facility] [address] [id number] [address] [place] [phone] Mar, UTI (urinary tract infection ) N39.0 [facility] [address] [id number] [address] [place] [address] Mar, Vertigo R42 [facility] [address] [id number] [address] [place] [id number] Mar, Neuroforaminal stenosis of ayla garcia M99.89 [facility] [address] [facility] [id number] [address] [place] [phone] Feb, Extensor tendon disruption M 67.89 [facility] [address] [facility] [id number] [address] [place] [phone] Feb, Neuroforaminal stenosis of ayla garcia M99.89 and High risk medication use Z79.899 [facility] [address] [id number] [address] [place] [address] Jan, Hypokalemia E87.6 [facility] [address] [facility] [id number] [address] [place] [phone] Jan, Flank pain R10.9 and Acute r ight-sided low back pain without sciatica M54.5 [facility] [address] [facility] [id number] [address] [place] [phone] Jan, Hypokalemia E87.6 [facility] [address] [facility] [id number] [address] [place] [phone] Jan, [facility] [address] [facility] [id number] [address] [place] [phone] Jan, URI, acute J06.9 [facility] [address] [facility] [id number] [address] [place] [phone] Jan, Neuroforaminal stenosis of ayla garcia M99.89 [facility] [address] [address] 13 Dec, 2017 Lateral epicondylitis, right elbow M77.11 [place] [address] [id number] 11 Dec, 2017 Allergic rhinitis due to monica rosalina, unspecified seasonality J30.1 and Allergic conjunctivitis of both eyes H10.13 [place] [address] [address] 10 Dec, 2017 Neuroforaminal stenosis of s pine M99.89 [place] [address] [address] 06 Dec, 2017 Mixed hyperlipidemia E78.2 [place] [address] [address] 05 Dec, 2017 Abnormal glucose R73.09 ; Ab normal renal ultrasound R93.429 ; Dysuria R30.0 ; Cystitis without hematuria N30.90 ; Hypokalemia E87.6 ; Mixed hyperlipidemia E78.2 and Hematuria, unspecified type R31.9 [place] [address] [address] Nov, Hypokalemia E87.6 ; Mixed hy perlipidemia E78.2 and Hematuria, unspecified type R31.9 [place] [address] [address] Nov, [place] [address] [address] Nov, Hypokalemia E87.6 [place] [address] [address] Nov, [place] [address] [address] Nov, Abnormal renal ultrasound R9 3.429 [place] [address] [address] Nov, Abnormal renal ultrasound R9 3.429 [place] [address] [id number] [address] [place] [phone] Nov, Hematuria, unspecified type R31.9 and Neuroforaminal stenosis of spine M99.89 [place] [address] [id number] [address] [place] [phone] Nov, Dysuria R30.0 [place] [address] [id number] [address] [place] [address] Oct, Lateral epicondylitis, right elbow M77.11 [place] [address] [id number] [address] [place] [address] Oct, Neuroforaminal stenosis of s pine M99.89 ; Visit for TB skin test Z11.1 and Essential hypertension I10 [place] [address] [id number] [address] [place] [phone] Oct, [place] [address] [id number] [address] [place] [phone] Oct, Neuroforaminal stenosis of s pine M99.89 [place] [address] [id number] [address] [place] [phone] Oct, Visit for TB skin test Z11.1 [place] [address] [id number] [address] [place] [id number] 05 Oct, 2017 Cystitis without hematuria N 30.90 [place] [address] [id number] [address] [place] [address] Sep, Screening breast examination Z12.39 [place] [address] [id number] [address] [place] [phone] Sep, Dysuria R30.0 and Cystitis w ithout hematuria N30.90 [place] [address] [id number] [address] [place] [address] 14 Sep, 2017 Essential hypertension I10 a nd Neuroforaminal stenosis of spine M99.89 [place] [address] [id number] [address] [place] [address] Sep, Abnormal glucose R73.09 [place] [address] [id number] [address] [place] [address] August, Lateral epicondylitis, right elbow M77.11 [place] [address] [id number] [address] [place] [phone] August, Screen for STD (sexually tra nsmitted disease) Z11.3 [place] [address] [id number] [address] [place] [phone] August, Neuroforaminal stenosis of ayla garcia M99.89 ; Mixed hyperlipidemia E78.2 ; Elevated fasting glucose R73.01 ; Screening mammogram, encounter for Z12.31 and Encounter for well woman exam without gynecological exam Z00.00 [place] [address] [id number] [address] [place] [address] August, Neuroforaminal stenosis of ayla garcia M99.89 [place] [address] [id number] [address] [place] [id number] August, Essential hypertension I10 ; Hypokalemia E87.6 and Mixed hyperlipidemia E78.2 [place] [address] [id number] [address] [place] [address] Jul, [place] [address] [id number] [address] [place] [address] Jul, Neuroforaminal stenosis of ayla garcia M99.89 [place] [address] [id number] [address] [place] [address] Jul, Lateral epicondylitis, right elbow M77.11 [place] [address] [id number] [address] [place] [address] Jul, [place] [address] [id number] [address] [place] [id number] Jun, High ankle sprain of right l ower extremity, initial encounter S93.431A [facility] [address] [id number] [address] [place] [address] Jun, Essential hypertension I10 [facility] [address] [id number] [address] [place] [phone] Jun, [facility] [address] [id number] [address] [place] [phone] Jun, [place] [address] [id number] [address] [place] [address] Jun, Neuroforaminal stenosis of s pine M99.89 [place] [address] [id number] [address] [place] [address] Jun, Pain of right upper extremit y M79.601 and Essential hypertension I10 [place] [address] [facility] [id number] [address] [place] [phone] Jun, [place] [address] [facility] [id number] [address] [place] [address] Jun, Dysuria R30.0 ; Acute cystit is with hematuria N30.01 and Screen for STD (sexually transmitted disease) Z11.3 [place] [address] [facility] [id number] [address] [place] [address] May, Chronic pain due to trauma G 89.21 [place] [address] [id number] [address] [place] [address] May, Essential hypertension I10 [place] [address] [id number] [address] [place] [address] May, Neuroforaminal stenosis of s pine M99.89 [place] [address] [facility] [id number] [address] [place] [address] Apr, Allergic reaction, initial e ncounter T78.40XA [facility] [address] [facility] [id number] [address] [place] [id number] Apr, Low back pain, unspecified b ack pain laterality, unspecified chronicity, with sciatica presence unspecified M54.5 ; Acute cystitis with hematuria N30.01 ; Neuroforaminal stenosis of spine M99.89 ; Bilateral acute serous otitis media, recurrence not specified H65.03 ; Mixed hyperlipidemia E78.2 ; Essential hypertension I10 ; Immunization counseling Z71.89 and Encounter for immunization Z23 [facility] [address] [id number] [address] [place] [id number] 08 Apr, 2017 Neck pain M54.2 [facility] [address] [id number] [address] [place] [id number] Mar, Neuroforaminal stenosis of s jose M99.89 [facility] [address] [id number] [address] [place] [id number] Mar, Pharyngitis due to other org anism J02.8 [facility] [address] [id number] [address] [place] [phone] Feb, Neuroforaminal stenosis of s jose M99.89 [facility] [address] [id number] [address] [place] [id number] 08 Feb, 2017 UTI (urinary tract infection ) N39.0 [facility] [address] [id number] [address] [place] [address] 07 Feb, 2017 Recent urinary tract infecti on Z87.440 ; Neuroforaminal stenosis of spine M99.89 ; Neck pain M54.2 ; Chronic pain due to trauma G89.21 and Recurrent UTI N39.0 [facility] [address] [id number] [address] [place] [id number] Feb, [facility] [address] [id number] [address] [place] [phone] Jan, Neuroforaminal stenosis of s jose M99.89 [facility] [address] [id number] [address] [place] [address] Dec, Neuroforaminal stenosis of s jose M99.89 [facility] [address] [id number] [address] [place] [phone] 18 Dec, 2016 Acute seasonal allergic rhin itis due to pollen J30.1 [facility] [address] [id number] [address] [place] [id number] 08 Dec, 2016 [facility] [address] [id number] [address] [place] [id number] 08 Dec, 2016 Acute seasonal allergic rhin itis, unspecified trigger J30.2 ; Allergic conjunctivitis of both eyes H10.13 and Dysfunction of both eustachian tubes H69.83 [facility] [address] [id number] [address] [place] [id number] 07 Dec, 2016 [facility] [address] [id number] [address] [place] [address] Dec, Nevus D22.9 [place] [address] [facility] [id number] [address] [place] [address] Nov, Chronic pain due to trauma G 89.21 and Neuroforaminal stenosis of spine M99.89 [facility] [address] [id number] [address] [place] [address] Nov, Neuroforaminal stenosis of s pine M99.89 ; Essential hypertension I10 ; Mixed hyperlipidemia E78.2 ; Hypokalemia E87.6 ; Neck pain M54.2 and Nevus D22.9 [place] [address] [id number] [address] [place] [address] Oct, Neuroforaminal stenosis of s pine M99.89 [facility] [address] [id number] [address] [place] [address] Sep, Neuroforaminal stenosis of s pine M99.89 [facility] [address] [facility] [id number] [address] [place] [phone] Sep, [facility] [address] [facility] [id number] [address] [place] [phone] August, [facility] [address] [id number] [address] [place] [address] August, Neck pain M54.2 and Neurofor aminal stenosis of spine M99.89 [facility] [address] [id number] [address] [place] [address] August, Routine gynecological examin ation Z01.419 and Screening breast examination Z12.39 [facility] [address] [id number] [address] [place] [phone] Jul, [facility] [address] [id number] [address] [place] [phone] Jul, [facility] [address] [id number] [address] [place] [address] Jul, Neuroforaminal stenosis of s pine M99.89 [facility] [address] [id number] [address] [place] [address] Jul, [facility] [address] [id number] [address] [place] [phone] Jul, Neuroforaminal stenosis of l umbar 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 [facility] [address] [id number] [address] [place] [id number] Jul, [facility] [address] [id number] [address] [place] [address] Jul, [facility] [address] [id number] [address] [place] [address] Jun, Neuroforaminal stenosis of s pine M99.89 [facility] [address] [id number] [address] [place] [id number] Jun, Uterine leiomyoma, unspecifi ed location D25.9 and Allergic reaction caused by a drug, initial encounter T78.40XA [facility] [address] [id number] [address] [place] [address] Jun, [facility] [address] [id number] [address] [place] [address] May, UTI symptoms R39.9 and Pain of right sacroiliac joint M53.3 [place] [address] [address] May, Neuroforaminal stenosis of s pine M99.89 [place] [address] [address] May, [place] [address] [address] May, Acute mucoid otitis media of left ear H65.112 and Acute non- recurrent maxillary sinusitis J01.[address] [address] May, Acute bacterial conjunctivit is of both eyes H10.33 ; Left arm pain M79.602 and Hypokalemia E87.6 [place] [address] [address] Apr, [place] [address] [address] Apr, Neuroforaminal stenosis of s pine M99.89 ; Neck pain M54.2 ; Chronic pain due to trauma G89.21 ; Mixed hyperlipidemia E78.2 ; Essential hypertension I10 and Hypokalemia E87.6 [place] [id number] [place] [address] Mar, Oral candidiasis B37.0 ; [place] roforaminal stenosis of spine M99.89 ; Neck pain M54.2 and Chronic pain due to trauma G89.21 [place] [address] [address] Feb, [place] [id number] [place] [phone] Feb, [address] [address] Feb, UTI (urinary tract infection ) N39.0 [facility] [address] [id number] [address] [place] [address] Feb, Dysuria R30.0 [facility] [address] [id number] [address] [place] [id number] 08 Feb, 2016 Dysuria R30.0 [facility] [address] [id number] [address] [place] [address] Feb, Neuroforaminal stenosis of s pine M99.89 ; Neck pain M54.2 ; Essential hypertension I10 ; Chronic pain due to trauma G89.21 ; Dysuria R30.0 ; Abnormal MRI, shoulder R93.8 and Acute cystitis without hematuria N30.00 [facility] [address] [id number] [address] [place] [id number] Jan, [facility] [address] [id number] [address] [place] [address] Jan, [facility] [address] [id number] [address] [place] [phone] Jan, [facility] [address] [id number] [address] [place] [phone] Jan, Abnormal MRI R93.8 [facility] [address] [id number] [address] [place] [phone] Dec, [facility] [address] [id number] [address] [place] [id number] 15 Dec, 2015 Acute pain of left shoulder M25.512 [facility] [address] [id number] [address] [place] [id number] Dec, [facility] [address] [id number] [address] [place] [address] 08 Dec, 2015 [facility] [address] [id number] [address] [place] [address] 07 Dec, 2015 Acute pain of left shoulder M25.512 [facility] [address] [id number] [address] [place] [phone] Nov, [facility] [address] [id number] [address] [place] [address] Nov, Neuroforaminal stenosis of s pine M99.89 ; Neck pain M54.2 ; Abnormal mammogram R92.8 ; Essential hypertension I10 and Chronic pain due to trauma G89.21 [facility] [address] [id number] [address] [place] [address] Nov, [facility] [address] [id number] [address] [place] [address] Oct, Acute stress disorder F43.0 [facility] [address] [id number] [address] [place] [phone] Oct, [facility] [address] [id number] [address] [place] [phone] Oct, [facility] [address] [id number] [address] [place] [phone] Oct, [facility] [address] [id number] [address] [place] [phone] Sep, [facility] [address] [id number] [address] [place] [phone] August, [facility] [address] [id number] [address] [place] [address] Jul, Neuroforaminal stenosis of s pine M99.89 ; Neck pain M54.2 ; Abnormal mammogram R92.8 and Essential hypertension I10 [facility] [address] [id number] [address] [place] [phone] Jul, [facility] [address] [id number] [address] [place] [id number] Jul, [facility] [address] [id number] [address] [place] [phone] Jul, Abnormal mammogram R92.8 [facility] [address] [id number] [address] [place] [id number] 08 Jul, 2015 [facility] [address] [facility] [id number] [address] [place] [address] Jul, UTI (urinary tract infection ) N39.0 [facility] [address] [facility] [id number] [address] [place] [phone] Jul, Dysuria R30.0 [facility] [address] [id number] [address] [place] [phone] Jun, [facility] [address] [id number] [address] [place] [phone] Jun, [facility] [address] [facility] [id number] [address] [place] [phone] Jun, Hypokalemia E87.6 and Hematu martina R31.9 [facility] [address] [facility] [id number] [address] [place] [id number] Jun, Hypokalemia E87.6 [facility] [address] [id number] [address] [place] [phone] Jun, [facility] [address] [facility] [id number] [address] [place] [phone] Jun, Hypokalemia E87.6 [place] [address] [facility] [id number] [address] [place] [phone] Jun, Hypokalemia E87.6 [facility] [address] [facility] [id number] [address] [place] [phone] 15 Jun, 2015 Neuroforaminal stenosis of s pine M99.89 ; Hypokalemia E87.6 ; Neck pain M54.2 ; Essential hypertension I10 ; Mixed hyperlipidemia E78.2 and Screening breast examination Z12.39 [facility] [address] [facility] [id number] [address] [place] [id number] Jun, Dysuria R30.0 ; UTI (urinary tract infection) N39.0 and Hematuria R31.9 [facility] [address] [place] [id number] [address] [place] [phone] May, [facility] [address] [place] [id number] [place] [phone] 18 May, 2015 High risk sexual behavior Z7 2.51 ; Hypokalemia E87.6 ; Neuroforaminal stenosis of spine M99.89 ; Neck pain M54.2 ; Essential hypertension I10 ; Mixed hyperlipidemia E78.2 ; STD exposure Z20.2 and Concern about STD in female without diagnosis Z71.1 [place] [address] [phone] 16 May, 2015 Neuroforaminal stenosis of s pine M99.89 ; Neck pain M54.2 ; Hypokalemia E87.6 ; Essential hypertension I10 and Mixed hyperlipidemia E78.2 [place] [address] [place] [id number] [place] [id number] 11 May, 2015 [facility] [id number] [place] [id number] 08 May, 2015 High risk sexual behavior Z7 2.51 ; STD exposure Z20.2 and Concern about STD in female without diagnosis Z71.1 [place] [address] [address] May, [facility] [address] [id number] [address] [place] [address] Apr, Neuroforaminal stenosis of s pine M99.89 ; Mixed hyperlipidemia E78.2 ; Essential hypertension I10 and Hypokalemia E87.6 [facility] [address] [id number] [address] [place] [phone] Mar, [facility] [address] [id number] [address] [place] [phone] Mar, Hypokalemia E87.6 [facility] [address] [id number] [address] [place] [address] Mar, Neuroforaminal stenosis of s pine M99.89 ; Mixed hyperlipidemia E78.2 ; Neck pain M54.2 ; Essential hypertension I10 ; Abnormal fasting glucose R73.09 ; Hypokalemia E87.6 and Constipation K59.00 [facility] [address] [id number] [address] [place] [address] Feb, Neuroforaminal stenosis of s pine M99.89 ; Mixed hyperlipidemia E78.2 ; Neck pain M54.2 ; Essential hypertension I10 ; Abnormal fasting glucose R73.09 ; Hypokalemia E87.6 and Constipation K59.00 [place] [id number] [place] [address] Feb, Elevated fasting blood sugar R73.01 [place] [address] [id number] [address] [place] [phone] Feb, Elevated fasting blood sugar R73.01 [place] [address] [id number] [address] [place] [address] Feb, Hair loss L65.[address] [address] Feb, Sinusitis J32.9 ; Essential hypertension I10 and Hair loss L65.9 [place] [address] [address] [id number] [address] [place] [id number] Jan, [place] [id number] [place] [id number] Jan, Essential hypertension I10 ; Neuroforaminal stenosis of spine M99.89 ; Neck pain M54.2 ; Mixed hyperlipidemia E78.2 and Anxiety F41.9 [place] [address] [id number] [address] [place] [address] Jan, [place] [address] [place] [address] [id number] [address] [place] [address] Jan, Mixed hyperlipidemia E78.2 ; Essential (primary) hypertension I10 ; Strain of muscle, fascia and tendon at neck level, subsequent encounter S16.1XXD and Tension-type headache, unspecified, not intractable G44.209 [facility] [address] [id number] [address] [place] [id number] Dec, Lumbar back pain 724.2 and N euroforaminal stenosis of spine 724.00 [place] [address] [id number] [address] [place] [phone] Nov, [facility] [address] [id number] [address] [place] [address] Nov, Lumbar back pain 724.2 and N euroforaminal stenosis of spine 724.00 [place] [address] [facility] [id number] [address] [place] [phone] Nov, Edema 782.3 ; Lumbar back pa in 724.2 ; Essential hypertension, benign 401.1 ; Hyperlipemia 272.4 ; Neuroforaminal stenosis of spine 724.00 and Post-concussion headache 339.20 [place] [address] [id number] [address] [place] [phone] Nov, [place] [address] [id number] [address] [place] [phone] Nov, [facility] [address] [id number] [address] [place] [address] Oct, Essential hypertension, [place] gn 401.1 [facility] [address] [id number] [address] [place] [address] Oct, Edema 782.3 ; Lumbar back pa in 724.2 ; Essential hypertension, benign 401.1 ; Hyperlipemia 272.4 ; Neuroforaminal stenosis of spine 724.00 and Post-concussion headache 339.20 [facility] [address] [id number] [address] [place] [phone] Oct, [facility] [address] [id number] [address] [place] [phone] Oct, Edema 782.3 [facility] [address] [id number] [address] [place] [phone] Oct, Lumbar back pain 724.2 [facility] [address] [id number] [address] [place] [phone] Oct, Cervicalgia 723.1 ; Lumbar b ack pain 724.2 and High risk medication use V58.69 [facility] [address] [id number] [address] [place] [phone] Sep, [facility] [address] [id number] [address] [place] [phone] Sep, Lumbar strain 847.2 [facility] [address] [address] [id number] [address] [place] [phone] August, Edema 782.3 and Eustachian t ube dysfunction 381.81 [facility] [address] [facility] [id number] [address] [place] [phone] August, [facility] [address] [id number] [address] [place] [address] August, Eustachian tube dysfunction 381.81 [facility] [address] [facility] [id number] [address] [place] [phone] Jul, Otalgia 388.70 and Otitis me jonathon 382.9 [facility] [address] [facility] [id number] [address] [place] [phone] Jul, [facility] [address] [id number] [address] [place] [phone] Jul, [facility] [address] [facility] [id number] [address] [place] [phone] Jul, [facility] [address] [facility] [id number] [address] [place] [phone] Jul, [facility] [address] [facility] [id number] [address] [place] [phone] Jul, [facility] [address] [id number] [address] [place] [address], [place] [address] Jun, [facility] [address] [id number] [address] [place] [address], [place] [address] 27 Jun, 2014 [facility] [address] [id number] [address] [place] [address], [place] [address] Jun, [facility] [address] [id number] [address] [place] [address], [place] [address] May, 2014 [facility] [address] [id number] [address] [place] [address], [place] [address] May, [facility] [address] [id number] [address] [place] [address], [place] [address] May, 2014 [facility] [address] [id number] [address] [place] [address], [place] [address] May, [facility] [address] [id number] [address] [place] [address], [place] [address] May, 2014 [facility] [address] [id number] [address] [place] [address], [place] [address] May, [facility] [address] [id number] [address] [place] [address], [place] [address] May, [facility] [address] [id number] [address] [place] [address], [place] [address] May, [facility] [address] [id number] [address] [place] [address], [place] [address] May, [facility] [address] [id number] [address] [place] [address], [place] [address] May, [facility] [address] [id number] [address] [place] [address], [place] [address] Apr, [facility] [address] [id number] [address] [place] [address], [place] [address] Apr, [facility] [address] [id number] [address] [place] [address], [place] [address] Apr, [facility] [address] [id number] [address] [place] [address], [place] [address] Apr, [facility] [address] [id number] [address] [place] [address], [place] [address] Apr, [facility] [address] [id number] [address] [place] [address], [place] [address] Apr, [facility] [address] [id number] [address] [place] [address], [place] [address] Apr, [facility] [address] [id number] [address] [place] [address], [place] [address] Apr, [facility] [address] [id number] [address] [place] [address], [place] [address] Apr, [facility] [address] [id number] [address] [place] [address], [place] [address] Apr, [facility] [address] [id number] [address] [place] [address], [place] [address] Apr, [facility] [address] [id number] [address] [place] [address], [place] [address] Apr, [facility] [address] [id number] [address] [place] [address], [place] [address] Apr, [facility] [address] [id number] [address] [place] [address], [place] [address] Apr, [facility] [address] [id number] [address] [place] [address], [place] [address] Apr, [facility] [address] [id number] [address] [place] [address], [place] [address] Mar, [facility] [address] [id number] [address] [place] [address], [place] [address] Mar, [facility] [address] [id number] [address] [place] [address], [place] [address] Mar, [facility] [address] [id number] [address] [place] [address], [place] [address] Mar, [facility] [address] [id number] [address] [place] [address], [place] [address] Feb, [facility] [address] [id number] [address] [place] [address], [place] [address] Feb, [facility] [address] [id number] [address] [place] [address], [place] [address] Feb, [facility] [address] [id number] [address] [place] [address], [place] [address] Feb, [facility] [address] [id number] [address] [place] [address], [place] [address] Jan, [facility] [address] [id number] [address] [place] [address], [place] [address] Jan, [facility] [address] [id number] [address] [place] [address], [place] [address] Jan, [facility] [address] [id number] [address] [place] [address], [place] [address] Jan, [facility] [address] [id number] [address] [place] [phone] Jan, [facility] [address] [id number] [address] [place] [phone] Jan, [facility] [address] [id number] [address] [place] [phone] Jan, [facility] [address] [id number] [address] [place] [address], [place] [address] Jan, [facility] [address] [id number] [address] [place] [address], [place] [address] Dec, [facility] [address] [id number] [address] [place] [phone] Dec, [facility] [address] [id number] [address] [place] [id number] 04 Dec, 2013 [facility] [address] [id number] [address] [place] [address], [place] [address] Dec, 2013 [facility] [address] [id number] [address] [place] [address], [place] [address] Oct, 2013 [facility] [address] [id number] [address] [place] [address], [place] [address] Oct, 2013 [facility] [address] [id number] [address] [place] [address], [place] [address] Oct, 2013 [facility] [address] [id number] [address] [place] [address], [place] [address] Oct, [facility] [address] [id number] [address] [place] [address], [place] [address] Oct, 2013 [facility] [address] [id number] [address] [place] [address], [place] [address] Oct, 2013 [facility] [address] [id number] [address] [place] [address], [place] [address] Oct, [facility] [address] [id number] [address] [place] [address], [place] [address] Oct, [facility] [address] [id number] [address] [place] [address], [place] [address] Sep, [facility] [address] [id number] [address] [place] [address], [place] [address] Sep, [facility] [address] [id number] [address] [place] [address], [place] [address] Sep, [facility] [address] [id number] [address] [place] [address], [place] [address] Sep, [facility] [address] [id number] [address] [place] [address], [place] [address] Sep, [facility] [address] [id number] [address] [place] [address], [place] [address] Sep, [facility] [address] [id number] [facility] [place] [address] Sep, [facility] [address] [id number] [facility] [place] [address] Sep, [facility] [address] [id number] [address] [place] [address], [place] [address] Sep, [facility] [address] [id number] [address] [place] [address], [place] [address] Sep, [facility] [address] [id number] [address] [place] [address], [place] [address] August, [facility] [address] [id number] [address] [place] [address], [place] [address] August, [facility] [address] [id number] [address] [place] [address], [place] [address] August, [facility] [address] [id number] [address] [place] [address], [place] [address] August, [facility] [address] [id number] [address] [place] [address], [place] [address] August, [facility] [address] [id number] [address] [place] [address], [place] [address] August, [facility] [address] [id number] [address] [place] [address], [place] [address] August, [facility] [address] [id number] [address] [place] [address], [place] [address] August, [facility] [address] [id number] [address] [place] [address], [place] [address] August, [facility] [address] [id number] [address] [place] [address], [place] [address] August, [facility] [address] [id number] [address] [place] [address], [place] [address] August, [facility] [address] [id number] [address] [place] [address] [address] August, [facility] [address] [id number] [facility] [place] [address] Jul, [facility] [address] [id number] [address] [place] [address], [place] [address] Jul, [facility] [address] [id number] [address] [place] [address], [place] [address] Jul, [facility] [address] [id number] [address] [place] [address], [place] [address] Jul, [facility] [address] [id number] [address] [place] [address], [place] [address] Jul, [facility] [address] [id number] [address] [place] [address], [place] [address] Jul, [facility] [address] [id number] [address] [place] [address], [place] [address] Jun, [facility] [address] [id number] [address] [place] [address], [place] [address] Jun, [facility] [address] [id number] [address] [place] [address], [place] [address] May, [facility] [address] [id number] [address] [place] [address], [place] [address] May, [facility] [address] [id number] [address] [place] [address], [place] [address] Apr, [facility] [address] [id number] [address] [place] [address], [place] [address] Apr, [facility] [address] [id number] [address] [place] [address], [place] [address] Apr, [facility] [address] [id number] [address] [place] [address], [place] [address] Apr, [facility] [address] [id number] [address] [place] [address], [place] [address] Apr, [facility] [address] [id number] [address] [place] [address], [place] [address] Apr, [facility] [address] [id number] [address] [place] [address], [place] [address] Apr, [facility] [address] [id number] [address] [place] [address], [place] [address] Apr, [facility] [address] [id number] [address] [place] [address], [place] [address] Apr, [facility] [address] [id number] [address] [place] [address], [place] [address] Apr, [facility] [address] [id number] [address] [place] [address], [place] [address] Apr, [facility] [address] [id number] [address] [place] [address], [place] [address] Apr, [facility] [address] [id number] [address] [place] [address], [place] [address] Apr, [facility] [address] [id number] [address] [place] [address], [place] [address] Mar, [facility] [address] [id number] [address] [place] [address], [place] [address] Mar, [facility] [address] [id number] [address] [place] [address], [place] [address] Mar, [facility] [address] [id number] [address] [place] [address], [place] [address] Mar, [facility] [address] [id number] [address] [place] [address], [place] [address] Feb, [facility] [address] [id number] [address] [place] [address], [place] [address] Feb, [facility] [address] [id number] [address] [place] [address], [place] [address] Feb, [facility] [address] [id number] [address] [place] [address], [place] [address] Feb, [facility] [address] [id number] [address] [place] [address], [place] [address] 14 Jan, 2013 [facility] [address] [id number] [address] [place] [address], [place] [address] 14 Jan, 2013 [facility] [address] [id number] [address] [place] [address], [place] [address] 11 Jan, 2013 [facility] [address] [id number] [address] [place] [address], [place] [address] 11 Jan, 2013 [facility] [address] [id number] [address] [place] [address], [place] [address] Jan, [facility] [address] [id number] [address] [place] [address], [place] [address] 10 Jan, 2013 [facility] [address] [id number] [address] [place] [address], [place] [address] Jan, [facility] [address] [id number] [address] [place] [address], [place] [address] 09 Jan, 2013 [facility] [address] [id number] [address] [place] [address], [place] [address] Jan, [facility] [address] [id number] [address] [place] [address], [place] [id number] 26 Dec, 2012 [facility] [address] [id number] [address] [place] [id number] 16 Dec, 2012 [facility] [address] [id number] [address] [place] [id number] 16 Dec, 2012 [facility] [address] [id number] [address] [place] [address], [place] [id number] 13 Dec, 2012 [facility] [address] [id number] [address] [place] [address], [place] [id number] 17 Nov, 2012 [facility] [address] [id number] [address] [place] [id number] 17 Nov, 2012 [facility] [address] [id number] [address] [place] [id number] Nov, [facility] [address] [id number] [address] [place] [address], [place] [address] Nov, [facility] [address] [id number] [address] [place] [address], [place] [address] Oct, [facility] [address] [id number] [address] [place] [address], [place] [address] Sep, [facility] [address] [id number] [address] [place] [address], [place] [address] August, [facility] [address] [id number] [address] [place] [address], [place] [id number] August, [facility] [address] [id number] [address] [place] [address], [place] [address] August, [facility] [address] [id number] [address] [place] [address], [place] [address] August, [facility] [address] [id number] [address] [place] [address], [place] [address] August, [facility] [address] [id number] [address] [place] [address], [place] [address] August, [facility] [address] [id number] [address] [place] [address], [place] [address] August, [facility] [address] [id number] [address] [place] [address], [place] [address] August, [facility] [address] [id number] [address] [place] [address], [place] [address] August, [facility] [address] [id number] [address] [place] [address], [place] [address] August, [facility] [address] [id number] [address] [place] [address], [place] [address] August, [facility] [address] [id number] [address] [place] [address], [place] [address] August, [facility] [address] [id number] [address] [place] [address], [place] [address] Jul, [facility] [address] [id number] [address] [place] [address], [place] [address] Jul, [facility] [address] [id number] [address] [place] [address], [place] [id number] Jul, [facility] [address] [id number] [address] [place] [address], [place] [id number] 15 Jul, 2012 [facility] [address] [id number] [address] [place] [address], [place] [address] Jul, [facility] [address] [id number] [address] [place] [address], [place] [address] Jul, [facility] [address] [id number] [address] [place] [address], [place] [address] Jul, [facility] [address] [id number] [address] [place] [address], [place] [address] Jul, [facility] [address] [id number] [address] [place] [address], [place] [address] Jul, [facility] [address] [id number] [address] [place] [address], [place] [address] Jul, [facility] [address] [id number] [address] [place] [address], [place] [id number] Jul, [facility] [address] [id number] [address] [place] [address], [place] [address] Jun, [facility] [address] [address] [id number] [address] [place] [address], [place] [address] Jun, [facility] [address] [id number] [address] [place] [address], [place] [address] Jun, [facility] [address] [id number] [address] [place] [address], [place] [address] Jun, [facility] [address] [id number] [address] [place] [address], [place] [address] 28 May, 2012 [facility] [address] [id number] [address] [place] [address], [place] [address] 14 May, 2012 [facility] [address] [id number] [address] [place] [address], [place] [id number] 05 May, 2012 [facility] [address] [id number] [address] [place] [address], [place] [address] May, [facility] [address] [id number] [address] [place] [address], [place] [address] May, [facility] [address] [id number] [address] [place] [address], [place] [address] May, [facility] [address] [id number] [address] [place] [address], [place] [address] Apr, [facility] [address] [id number] [address] [place] [address], [place] [address] Apr, [facility] [address] [id number] [address] [place] [address], [place] [address] Apr, [facility] [address] [id number] [address] [place] [address], [place] [address] Apr, [facility] [address] [id number] [address] [place] [address], [place] [address] 15 Mar, 2012 [facility] [address] [id number] [address] [place] [address], [place] [address] 14 Mar, 2012 [facility] [address] [id number] [address] [place] [address], [place] [address] 14 Mar, 2012 [facility] [address] [id number] [address] [place] [address], [place] [address] 14 Mar, 2012 [facility] [address] [id number] [address] [place] [address], [place] [address] 14 Mar, 2012 [facility] [address] [id number] [address] [place] [address], [place] [address] 06 Mar, 2012 [facility] [address] [id number] [address] [place] [address], [place] [address] Mar, [facility] [address] [id number] [address] [place] [address], [place] [address] Feb, [facility] [address] [id number] [address] [place] [address], [place] [address] Feb, [facility] [address] [id number] [address] [place] [address], [place] [address] Feb, [facility] [address] [id number] [address] [place] [address], [place] [address] Feb, [facility] [address] [id number] [address] [place] [address], [place] [address] Jan, [facility] [address] [id number] [address] [place] [address], [place] [address] Jan, [facility] [address] [id number] [address] [place] [address], [place] [address] Jan, [facility] [address] [id number] [address] [place] [address], [place] [address] Jan, [facility] [address] [id number] [address] [place] [address], [place] [address] Jan, [facility] [address] [id number] [address] [place] [address], [place] [address] Jan, [facility] [address] [id number] [address] [place] [address], [place] [address] Dec, [facility] [address] [id number] [address] [place] [address], [place] [address] Dec, [facility] [address] [id number] [address] [place] [address], [place] [address] Nov, [facility] [address] [id number] [address] [place] [address], [place] [address] Sep, [facility] [address] [id number] [address] [place] [address], [place] [address] August, [facility] [address] [id number] [address] [place] [address], [place] [address] August, [facility] [address] [id number] [address] [place] [address], [place] [address] August, [facility] [address] [id number] [address] [place] [address], [place] [address] August, [facility] [address] [id number] [address] [place] [address], [place] [address] August, [facility] [address] [id number] [address] [place] [address], [place] [address] Jun, [facility] [address] [id number] [address] [place] [address], [place] [address] Jun, [facility] [address] [id number] [address] [place] [address], [place] [address] Apr, [facility] [address] [id number] [address] [place] [address], [place] [address] Apr, [facility] [address] [id number] [address] [place] [address], [place] [address] Mar, [facility] [address] [id number] [address] [place] [id number] Feb, [facility] [address] [id number] [address] [place] [address], [place] [address] Feb, [facility] [address] [id number] [address] [place] [id number] 14 Feb, 2011 [facility] [address] [id number] [address] [place] [address], [place] [address] 17 Jan, 2011 [facility] [address] [id number] [address] [place] [address], [place] [address] 15 Jan, 2011 [facility] [address] [id number] [address] [place] [address], [place] [address] 15 Jan, 2011 [facility] [address] [id number] [address] [place] [id number] 14 Jan, 2011 [facility] [address] [facility] [id number] [address] [place] [id number] 15 May, 2010 [facility] [address] [facility] [id number] [address] [place] [id number] Mar, [facility] [address] [facility] [id number] [address] [place] [id number] Oct, [facility] [address] [facility] [id number] [address] [place] [id number] Sep, [facility] [address] [facility] [id number] [address] [place] [id number] Mar, [facility] [address] [facility] [id number] [address] [place] [id number] Jan, [facility] [address] [facility] [id number] [address] [place] [id number] Jan, [facility] [address] [facility] [id number] [address] [place] [id number] May, IMMUNIZATIONS No Known Immunizations SOCIAL HISTORY [...]
--- OUTSIDE RECORDS SUMMARY | 2019-11-23 05:58 | XMS REPORT ---
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 Name Role Phone PACHECO Fuchs Unavailable PROBLEMS Type Condition ICD9-CM Code RPU12-GV Code Onset Dates Condition S tatus SNOMED Code Problem Hematuria, unspecified type R31.9 Ac tive 62031836 Problem Abnormal renal ultrasound R93.429 Acti ve [id number] Problem Anxiety F41.9 Active 79434471 Problem Hypokalemia E87.6 Active 58054516 Problem Abnormal glucose R73.09 Active 102 843206 Problem Chronic pain due to trauma G89.21 Act juanis [id number] Problem Neuroforaminal stenosis of spine M99.89 Active 601439091880 Problem Neck pain M54.2 Active 66950380 Problem Essential hypertension I10 Active 98741294 Problem Mixed hyperlipidemia E78.2 Active 81276328 ALLERGIES No Information ENCOUNTERS Encounter Location Date Diagnosis [place] [address] [address] [facility] [id number] [address] [place] [id number] 24 Sep, 2018 [place] [address] [address] [facility] [id number] [address] [place] [phone] Sep, [place] [address] [address] [facility] [id number] [address] [place] [id number] 18 Sep, 2018 Routine screening for STI (s exually transmitted infection) Z11.3 [place] [address] [address] [facility] [id number] [address] [place] [id number] 14 Sep, 2018 Routine screening for STI (s exually transmitted infection) Z11.3 ; Well woman exam with routine gynecological exam Z01.419 and Breast cancer screening Z12.39 [place] [address] [address] [facility] [id number] [address] [place] [id number] Sep, Neuroforaminal stenosis of s pine M99.89 [facility] [address] [id number] [address] [place] [id number] August, Neuroforaminal stenosis of s pine M99.89 [facility] [address] [id number] [address] [place] [id number] August, Neuroforaminal stenosis of s pine M99.89 ; Chronic pain due to trauma G89.21 and Mixed hyperlipidemia E78.2 [facility] [address] [id number] [address] [place] [phone] Jul, Viral upper respiratory illn ess J06.9 and Acute non-recurrent frontal sinusitis J01.10 [facility] [address] [id number] [address] [place] [id number] Jul, Congestion of nasal sinus R0 9.81 [facility] [address] [id number] [address] [place] [id number] Jul, Neuroforaminal stenosis of s pine M99.89 and Essential hypertension I10 [facility] [address] [id number] [address] [place] [phone] May, Neuroforaminal stenosis of s pine M99.89 [facility] [address] [id number] [address] [place] [id number] May, [facility] [address] [id number] [address] [place] [id number] May, Congestion of nasal sinus R0 9.81 [facility] [address] [id number] [address] [place] [id number] May, [facility] [address] [id number] [address] [place] [phone] Apr, Neuroforaminal stenosis of s pine M99.89 [facility] [address] [facility] [id number] [address] [place] [phone] Apr, Neuroforaminal stenosis of s pine M99.89 and Chronic pain due to trauma G89.21 [facility] [address] [id number] [address] [place] [phone] Mar, UTI (urinary tract infection ) N39.0 [facility] [address] [id number] [address] [place] [id number] Mar, Vertigo R42 [facility] [address] [id number] [address] [place] [phone] Mar, Neuroforaminal stenosis of s jose M99.89 [facility] [address] [id number] [address] [place] [id number] Feb, Extensor tendon disruption M 67.89 [facility] [address] [id number] [address] [place] [phone] Feb, Neuroforaminal stenosis of ayla garcia M99.89 and High risk medication use Z79.899 [facility] [address] [id number] [address] [place] [phone] Jan, Hypokalemia E87.6 [facility] [address] [id number] [address] [place] [phone] Jan, Flank pain R10.9 and Acute r ight-sided low back pain without sciatica M54.5 [facility] [address] [id number] [address] [place] [id number] Jan, Hypokalemia E87.6 [facility] [address] [id number] [address] [place] [phone] Jan, [facility] [address] [id number] [address] [place] [phone] Jan, URI, acute J06.9 [facility] [address] [id number] [address] [place] [phone] Jan, Neuroforaminal stenosis of ayla garcia M99.89 [facility] [address] [id number] [address] [place] [id number] 13 Dec, 2017 Lateral epicondylitis, right elbow M77.11 [place] [address] [id number] 11 Dec, 2017 Allergic rhinitis due to monica rosalina, unspecified seasonality J30.1 and Allergic conjunctivitis of both eyes H10.13 [place] [address] [id number] 10 Dec, 2017 Neuroforaminal stenosis of s pine M99.89 [place] [address] [address] 06 Dec, 2017 Mixed hyperlipidemia E78.2 [place] [address] [id number] 05 Dec, 2017 Abnormal glucose R73.09 ; Ab normal renal ultrasound R93.429 ; Dysuria R30.0 ; Cystitis without hematuria N30.90 ; Hypokalemia E87.6 ; Mixed hyperlipidemia E78.2 and Hematuria, unspecified type R31.9 [place] [address] [address] Nov, Hypokalemia E87.6 ; Mixed hy perlipidemia E78.2 and Hematuria, unspecified type R31.9 [place] [address] [id number] Nov, [place] [address] [address] Nov, Hypokalemia E87.6 [place] [address] [id number] Nov, [place] [address] [id number] Nov, Abnormal renal ultrasound R9 3.429 [place] [address] [id number] Nov, Abnormal renal ultrasound R9 3.429 [place] [address] [id number] [address] [place] [id number] 09 Nov, 2017 Hematuria, unspecified type R31.9 and Neuroforaminal stenosis of spine M99.89 [facility] [address] [id number] [address] [place] [phone] Nov, Dysuria R30.0 [place] [address] [id number] [address] [place] [id number] Oct, Lateral epicondylitis, right elbow M77.11 [place] [address] [id number] [address] [place] [id number] Oct, Neuroforaminal stenosis of s jose M99.89 ; Visit for TB skin test Z11.1 and Essential hypertension I10 [place] [address] [id number] [address] [place] [phone] Oct, [place] [address] [id number] [address] [place] [id number] Oct, Neuroforaminal stenosis of s pine M99.89 [place] [address] [id number] [address] [place] [id number] Oct, Visit for TB skin test Z11.1 [place] [address] [id number] [address] [place] [id number] 05 Oct, 2017 Cystitis without hematuria N 30.90 [place] [address] [id number] [address] [place] [id number] Sep, Screening breast examination Z12.39 [place] [address] [id number] [address] [place] [id number] Sep, Dysuria R30.0 and Cystitis w ithout hematuria N30.90 [place] [address] [id number] [address] [place] [id number] 14 Sep, 2017 Essential hypertension I10 a nd Neuroforaminal stenosis of spine M99.89 [place] [address] [id number] [address] [place] [id number] Sep, Abnormal glucose R73.09 [place] [address] [id number] [address] [place] [id number] August, Lateral epicondylitis, right elbow M77.11 [place] [address] [id number] [address] [place] [id number] August, Screen for STD (sexually tra nsmitted disease) Z11.3 [place] [address] [id number] [address] [place] [id number] August, Neuroforaminal stenosis of s jose M99.89 ; Mixed hyperlipidemia E78.2 ; Elevated fasting glucose R73.01 ; Screening mammogram, encounter for Z12.31 and Encounter for well woman exam without gynecological exam Z00.00 [place] [address] [id number] [address] [place] [id number] August, Neuroforaminal stenosis of s pine M99.89 [place] [address] [id number] [address] [place] [id number] August, Essential hypertension I10 ; Hypokalemia E87.6 and Mixed hyperlipidemia E78.2 [place] [address] [id number] [address] [place] [id number] Jul, [place] [address] [id number] [address] [place] [id number] Jul, Neuroforaminal stenosis of s pine M99.89 [place] [address] [id number] [address] [place] [id number] Jul, Lateral epicondylitis, right elbow M77.11 [place] [address] [id number] [address] [place] [id number] Jul, [place] [address] [id number] [address] [place] [address] Jun, High ankle sprain of right l ower extremity, initial encounter S93.431A [place] [address] [id number] [address] [place] [id number] Jun, Essential hypertension I10 [facility] [address] [id number] [address] [place] [id number] Jun, [facility] [address] [id number] [address] [place] [id number] Jun, [facility] [address] [id number] [address] [place] [address] Jun, Neuroforaminal stenosis of s pine M99.89 [facility] [address] [id number] [address] [place] [id number] Jun, Pain of right upper extremit y M79.601 and Essential hypertension I10 [place] [address] [id number] [address] [place] [id number] Jun, [place] [address] [address] [facility] [id number] [address] [place] [address] Jun, Dysuria R30.0 ; Acute cystit is with hematuria N30.01 and Screen for STD (sexually transmitted disease) Z11.3 [place] [address] [id number] [address] [place] [id number] May, Chronic pain due to trauma G 89.21 [place] [address] [id number] [address] [place] [address] May, Essential hypertension I10 [facility] [address] [id number] [address] [place] [id number] May, Neuroforaminal stenosis of s pine M99.89 [facility] [address] [id number] [address] [place] [address] Apr, Allergic reaction, initial e ncounter T78.40XA [facility] [address] [id number] [address] [place] [id number] Apr, Low back pain, unspecified b ack pain laterality, unspecified chronicity, with sciatica presence unspecified M54.5 ; Acute cystitis with hematuria N30.01 ; Neuroforaminal stenosis of spine M99.89 ; Bilateral acute serous otitis media, recurrence not specified H65.03 ; Mixed hyperlipidemia E78.2 ; Essential hypertension I10 ; Immunization counseling Z71.89 and Encounter for immunization Z23 [facility] [address] [id number] [address] [place] [id number] 08 Apr, 2017 Neck pain M54.2 [facility] [address] [id number] [address] [place] [id number] 26 Mar, 2017 Neuroforaminal stenosis of s pine M99.89 [place] [address] [id number] [address] [place] [phone] Mar, Pharyngitis due to other org anism J02.8 [facility] [address] [id number] [address] [place] [id number] Feb, Neuroforaminal stenosis of s pine M99.89 [facility] [address] [id number] [address] [place] [id number] 08 Feb, 2017 UTI (urinary tract infection ) N39.0 [facility] [address] [id number] [address] [place] [id number] 07 Feb, 2017 Recent urinary tract infecti on Z87.440 ; Neuroforaminal stenosis of spine M99.89 ; Neck pain M54.2 ; Chronic pain due to trauma G89.21 and Recurrent UTI N39.0 [facility] [address] [id number] [address] [place] [id number] 03 Feb, 2017 [facility] [address] [id number] [address] [place] [id number] Jan, Neuroforaminal stenosis of s pine M99.89 [facility] [address] [id number] [address] [place] [id number] 28 Dec, 2016 Neuroforaminal stenosis of s pine M99.89 [facility] [address] [id number] [address] [place] [phone] 18 Dec, 2016 Acute seasonal allergic rhin itis due to pollen J30.1 [facility] [address] [id number] [address] [place] [id number] 08 Dec, 2016 [facility] [address] [id number] [address] [place] [id number] 08 Dec, 2016 Acute seasonal allergic rhin itis, unspecified trigger J30.2 ; Allergic conjunctivitis of both eyes H10.13 and Dysfunction of both eustachian tubes H69.83 [facility] [address] [id number] [address] [place] [id number] 07 Dec, 2016 [place] [address] [id number] [address] [place] [id number] Dec, Nevus D22.9 [place] [address] [address] [facility] [id number] [address] [place] [id number] Nov, Chronic pain due to trauma G 89.21 and Neuroforaminal stenosis of spine M99.89 [place] [address] [id number] [address] [place] [id number] Nov, Neuroforaminal stenosis of s pine M99.89 ; Essential hypertension I10 ; Mixed hyperlipidemia E78.2 ; Hypokalemia E87.6 ; Neck pain M54.2 and Nevus D22.9 [place] [address] [id number] [address] [place] [id number] Oct, Neuroforaminal stenosis of s pine M99.89 [facility] [address] [id number] [address] [place] [id number] Sep, Neuroforaminal stenosis of s pine M99.89 [place] [address] [id number] [address] [place] [id number] Sep, [place] [address] [id number] [address] [place] [phone] August, [facility] [address] [facility] [id number] [address] [place] [id number] August, Neck pain M54.2 and Neurofor aminal stenosis of spine M99.89 [facility] [address] [id number] [address] [place] [id number] August, Routine gynecological examin ation Z01.419 and Screening breast examination Z12.39 [facility] [address] [id number] [address] [place] [id number] Jul, [facility] [address] [id number] [address] [place] [id number] Jul, [facility] [address] [id number] [address] [place] [id number] Jul, Neuroforaminal stenosis of s pine M99.89 [facility] [address] [id number] [address] [place] [id number] Jul, [facility] [address] [id number] [address] [place] [id number] Jul, Neuroforaminal stenosis of l umbar 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 [facility] [address] [id number] [address] [place] [id number] Jul, [facility] [address] [id number] [address] [place] [id number] Jul, [facility] [address] [id number] [address] [place] [id number] Jun, Neuroforaminal stenosis of s pine M99.89 [facility] [address] [id number] [address] [place] [id number] Jun, Uterine leiomyoma, unspecifi ed location D25.9 and Allergic reaction caused by a drug, initial encounter T78.40XA [facility] [address] [id number] [address] [place] [id number] Jun, [facility] [address] [id number] [address] [place] [id number] May, UTI symptoms R39.9 and Pain of right sacroiliac joint M53.3 [place] [address] [id number] [address] [place] [address] May, Neuroforaminal stenosis of s jose M99.89 [place] [address] [id number] [address] [place] [id number] May, [place] [address] [address] [facility] [id number] [address] [place] [id number] May, Acute mucoid otitis media of left ear H65.112 and Acute non- recurrent maxillary sinusitis J01.00 [place] [address] [address] [facility] [id number] [address] [place] [address] May, Acute bacterial conjunctivit is of both eyes H10.33 ; Left arm pain M79.602 and Hypokalemia E87.6 [place] [address] [address] [facility] [id number] [address] [place] [phone] Apr, [place] [address] [id number] [address] [place] [id number] Apr, Neuroforaminal stenosis of s pine M99.89 ; Neck pain M54.2 ; Chronic pain due to trauma G89.21 ; Mixed hyperlipidemia E78.2 ; Essential hypertension I10 and Hypokalemia E87.6 [place] [address] [facility] [id number] [address] [place] [id number] Mar, Oral candidiasis B37.0 ; Nathaniel roforaminal stenosis of spine M99.89 ; Neck pain M54.2 and Chronic pain due to trauma G89.21 [place] [address] [facility] [id number] [address] [place] [id number] Feb, [place] [address] [facility] [id number] [address] [place] [phone] Feb, [place] [address] [facility] [id number] [address] [place] [id number] Feb, UTI (urinary tract infection ) N39.0 [facility] [address] [id number] [address] [place] [id number] 09 Feb, 2016 Dysuria R30.0 [facility] [address] [id number] [address] [place] [phone] 08 Feb, 2016 Dysuria R30.0 [facility] [address] [id number] [address] [place] [id number] Feb, Neuroforaminal stenosis of s pine M99.89 ; Neck pain M54.2 ; Essential hypertension I10 ; Chronic pain due to trauma G89.21 ; Dysuria R30.0 ; Abnormal MRI, shoulder R93.8 and Acute cystitis without hematuria N30.00 [facility] [address] [id number] [address] [place] [phone] Jan, [facility] [address] [id number] [address] [place] [phone] Jan, [facility] [address] [id number] [address] [place] [id number] Jan, [facility] [address] [id number] [address] [place] [phone] Jan, Abnormal MRI R93.8 [facility] [address] [id number] [address] [place] [id number] 29 Dec, 2015 [facility] [address] [id number] [address] [place] [id number] 15 Dec, 2015 Acute pain of left shoulder M25.512 [facility] [address] [id number] [address] [place] [id number] 09 Dec, 2015 [facility] [address] [id number] [address] [place] [id number] 08 Dec, 2015 [facility] [address] [id number] [address] [place] [id number] 07 Dec, 2015 Acute pain of left shoulder M25.512 [facility] [address] [id number] [address] [place] [phone] Nov, [facility] [address] [id number] [address] [place] [id number] Nov, Neuroforaminal stenosis of s pine M99.89 ; Neck pain M54.2 ; Abnormal mammogram R92.8 ; Essential hypertension I10 and Chronic pain due to trauma G89.21 [facility] [address] [id number] [address] [place] [id number] Nov, [facility] [address] [id number] [address] [place] [phone] Oct, Acute stress disorder F43.0 [facility] [address] [id number] [address] [place] [phone] Oct, [facility] [address] [id number] [address] [place] [id number] Oct, [facility] [address] [id number] [address] [place] [phone] Oct, [facility] [address] [id number] [address] [place] [phone] Sep, [facility] [address] [id number] [address] [place] [phone] August, [facility] [address] [id number] [address] [place] [id number] Jul, Neuroforaminal stenosis of s pine M99.89 ; Neck pain M54.2 ; Abnormal mammogram R92.8 and Essential hypertension I10 [facility] [address] [id number] [address] [place] [phone] Jul, [facility] [address] [id number] [address] [place] [phone] Jul, [facility] [address] [id number] [address] [place] [phone] Jul, Abnormal mammogram R92.8 [facility] [address] [id number] [address] [place] [id number] 08 Jul, 2015 [facility] [address] [facility] [id number] [address] [place] [id number] Jul, UTI (urinary tract infection ) N39.0 [facility] [address] [facility] [id number] [address] [place] [id number] Jul, Dysuria R30.0 [facility] [address] [facility] [id number] [address] [place] [phone] Jun, [facility] [address] [facility] [id number] [address] [place] [phone] Jun, [facility] [address] [place] [id number] [address] [place] [id number] Jun, Hypokalemia E87.6 and Hematu martina R31.9 [place] [address] [place] [id number] [address] [place] [address] [id number] Jun, Hypokalemia E87.6 [facility] [address] [facility] [id number] [address] [place] [id number] Jun, [facility] [address] [place] [id number] [address] [place] [id number] Jun, Hypokalemia E87.6 [facility] [address] [place] [id number] [address] [place] [phone] Jun, Hypokalemia E87.6 [facility] [address] [place] [id number] [address] [place] [id number] 15 Jun, 2015 Neuroforaminal stenosis of s pine M99.89 ; Hypokalemia E87.6 ; Neck pain M54.2 ; Essential hypertension I10 ; Mixed hyperlipidemia E78.2 and Screening breast examination Z12.39 [place] [id number] [facility] [id number] [address] [place] [id number] 08 Jun, 2015 Dysuria R30.0 ; UTI (urinary tract infection) N39.0 and Hematuria R31.9 [place] [address] [facility] [id number] [address] [place] [id number] May, [facility] [address] [place] [id number] [place] [id number] 18 May, 2015 High risk sexual behavior Z7 2.51 ; Hypokalemia E87.6 ; Neuroforaminal stenosis of spine M99.89 ; Neck pain M54.2 ; Essential hypertension I10 ; Mixed hyperlipidemia E78.2 ; STD exposure Z20.2 and Concern about STD in female without diagnosis Z71.1 [facility] [address] [facility] [id number] [address] [place] [id number] 16 May, 2015 Neuroforaminal stenosis of s pine M99.89 ; Neck pain M54.2 ; Hypokalemia E87.6 ; Essential hypertension I10 and Mixed hyperlipidemia E78.2 [facility] [address] [place] [id number] [address] [place] [id number] May, [facility] [address] [facility] [id number] [address] [place] [id number] 08 May, 2015 High risk sexual behavior Z7 2.51 ; STD exposure Z20.2 and Concern about STD in female without diagnosis Z71.1 [facility] [address] [facility] [id number] [address] [place] [phone] May, [facility] [address] [facility] [id number] [address] [place] [phone] Apr, Neuroforaminal stenosis of s pine M99.89 ; Mixed hyperlipidemia E78.2 ; Essential hypertension I10 and Hypokalemia E87.6 [facility] [address] [facility] [id number] [address] [place] [phone] Mar, [facility] [address] [facility] [id number] [address] [place] [phone] Mar, Hypokalemia E87.6 [facility] [address] [facility] [id number] [address] [place] [phone] Mar, Neuroforaminal stenosis of s pine M99.89 ; Mixed hyperlipidemia E78.2 ; Neck pain M54.2 ; Essential hypertension I10 ; Abnormal fasting glucose R73.09 ; Hypokalemia E87.6 and Constipation K59.00 [facility] [address] [facility] [id number] [address] [place] [phone] Feb, Neuroforaminal stenosis of s pine M99.89 ; Mixed hyperlipidemia E78.2 ; Neck pain M54.2 ; Essential hypertension I10 ; Abnormal fasting glucose R73.09 ; Hypokalemia E87.6 and Constipation K59.00 [facility] [address] [facility] [id number] [address] [place] [phone] Feb, Elevated fasting blood sugar R73.01 [place] [address] [facility] [id number] [address] [place] [phone] Feb, Elevated fasting blood sugar R73.01 [place] [address] [facility] [id number] [address] [place] [phone] Feb, Hair loss L65.9 [place] [address] [facility] [id number] [address] [place] [phone] Feb, Sinusitis J32.9 ; Essential hypertension I10 and Hair loss L65.9 [facility] [address] [facility] [id number] [address] [place] [phone] Jan, [facility] [address] [facility] [id number] [address] [place] [id number] Jan, Essential hypertension I10 ; Neuroforaminal stenosis of spine M99.89 ; Neck pain M54.2 ; Mixed hyperlipidemia E78.2 and Anxiety F41.9 [facility] [address] [facility] [id number] [address] [place] [phone] Jan, [facility] [address] [facility] [id number] [address] [place] [phone] Jan, Mixed hyperlipidemia E78.2 ; Essential (primary) hypertension I10 ; Strain of muscle, fascia and tendon at neck level, subsequent encounter S16.1XXD and Tension-type headache, unspecified, not intractable G44.209 [facility] [address] [id number] [address] [place] [phone] Dec, Lumbar back pain 724.2 and N euroforaminal stenosis of spine 724.00 [facility] [address] [id number] [address] [place] [phone] Nov, [facility] [address] [id number] [address] [place] [phone] Nov, Lumbar back pain 724.2 and N euroforaminal stenosis of spine 724.00 [place] [address] [facility] [id number] [address] [place] [id number] Nov, Edema 782.3 ; Lumbar back pa in 724.2 ; Essential hypertension, benign 401.1 ; Hyperlipemia 272.4 ; Neuroforaminal stenosis of spine 724.00 and Post-concussion headache 339.20 [facility] [address] [id number] [address] [place] [phone] Nov, [facility] [address] [facility] [id number] [address] [place] [phone] Nov, [facility] [address] [facility] [id number] [address] [place] [phone] Oct, Essential hypertension, sheridan gn 401.1 [facility] [address] [facility] [id number] [address] [place] [id number] Oct, Edema 782.3 ; Lumbar back pa in 724.2 ; Essential hypertension, benign 401.1 ; Hyperlipemia 272.4 ; Neuroforaminal stenosis of spine 724.00 and Post-concussion headache 339.20 [facility] [address] [facility] [id number] [address] [place] [phone] Oct, [facility] [address] [facility] [id number] [address] [place] [phone] Oct, Edema 782.3 [facility] [address] [id number] [address] [place] [phone] Oct, Lumbar back pain 724.2 [facility] [address] [id number] [address] [place] [id number] Oct, Cervicalgia 723.1 ; Lumbar b ack pain 724.2 and High risk medication use V58.69 [facility] [address] [id number] [address] [place] [phone] Sep, [facility] [address] [id number] [address] [place] [phone] Sep, Lumbar strain 847.2 [facility] [address] [facility] [id number] [address] [place] [phone] August, Edema 782.3 and Eustachian t ube dysfunction 381.81 [facility] [address] [facility] [id number] [address] [place] [phone] August, [facility] [address] [id number] [address] [place] [phone] August, Eustachian tube dysfunction 381.81 [facility] [address] [id number] [address] [place] [phone] Jul, Otalgia 388.70 and Otitis me jonathon 382.9 [facility] [address] [id number] [address] [place] [phone] Jul, [facility] [address] [id number] [address] [place] [id number] Jul, [facility] [address] [id number] [address] [place] [phone] Jul, [facility] [address] [facility] [id number] [address] [place] [phone] Jul, [facility] [address] [facility] [id number] [address] [place] [phone] Jul, [facility] [address] [id number] [address] [place] [address], [place] [address] Jun, [facility] [address] [id number] [address] [place] [address], [place] [address] 27 Jun, 2014 [facility] [address] [id number] [address] [place] [address], [place] [address] Jun, [facility] [address] [id number] [address] [place] [address], [place] [address] May, 2014 [facility] [address] [id number] [address] [place] [address], [place] [address] May, 2014 [facility] [address] [id number] [address] [place] [address], [place] [address] May, 2014 [facility] [address] [id number] [address] [place] [address], [place] [address] May, 2014 [facility] [place] [address] [id number] [address] [place] [address], [place] [address] May, 2014 [facility] [address] [id number] [address] [place] [address], [place] [address] May, [facility] [place] [facility] [address] [id number] [address] [place] [address], [place] [address] May, [facility] [address] [id number] [address] [place] [address], [place] [address] May, [facility] [place] [facility] [address] [id number] [address] [place] [address], [place] [address] May, [facility] [place] [address] [id number] [address] [place] [address], [place] [address] May, [facility] [place] [facility] [address] [id number] [address] [place] [address], [place] [address] Apr, [facility] [place] [address] [id number] [address] [place] [address], [place] [address] Apr, [facility] [place] [address] [id number] [address] [place] [phone] Apr, [facility] [address] [id number] [address] [place] [address], [place] [address] Apr, [facility] [address] [id number] [address] [place] [address], [place] [address] Apr, [facility] [address] [id number] [address] [place] [address], [place] [address] Apr, [facility] [address] [id number] [address] [place] [address], [place] [address] Apr, [facility] [address] [id number] [address] [place] [address], [place] [address] Apr, [facility] [address] [id number] [address] [place] [address], [place] [address] Apr, [facility] [address] [id number] [address] [place] [address], [place] [address] Apr, [facility] [address] [id number] [address] [place] [address], [place] [address] Apr, [facility] [address] [id number] [address] [place] [address], [place] [address] Apr, [facility] [address] [id number] [address] [place] [address], [place] [address] Apr, [facility] [address] [id number] [address] [place] [address], [place] [address] Apr, [facility] [address] [id number] [address] [place] [address], [place] [address] Apr, [facility] [address] [id number] [address] [place] [address], [place] [address] Mar, [facility] [address] [id number] [address] [place] [address], [place] [address] Mar, [facility] [address] [id number] [address] [place] [address], [place] [address] Mar, [facility] [address] [id number] [address] [place] [address], [place] [address] Mar, [facility] [address] [id number] [address] [place] [address], [place] [address] Feb, [facility] [address] [id number] [address] [place] [address], [place] [address] Feb, [facility] [address] [id number] [address] [place] [address], [place] [address] Feb, [facility] [address] [id number] [address] [place] [address], [place] [address] Feb, [facility] [address] [id number] [address] [place] [address], [place] [address] Jan, [facility] [address] [id number] [address] [place] [address], [place] [address] Jan, [facility] [address] [id number] [address] [place] [address], [place] [address] Jan, [facility] [address] [id number] [address] [place] [address], [place] [address] Jan, [facility] [address] [id number] [address] [place] [address], [place] [address] Jan, [facility] [address] [id number] [address] [place] [address], [place] [address] Jan, [facility] [address] [id number] [address] [place] [address], [place] [address] Jan, [facility] [address] [id number] [address] [place] [address], [place] [address] Jan, [facility] [place] [facility] [address] [id number] [address] [place] [address], [place] [address] Dec, [facility] [place] [facility] [address] [id number] [address] [place] [address], [place] [address] Dec, [facility] [place] [facility] [address] [id number] [address] [place] [address], [place] [address] Dec, [facility] [place] [facility] [address] [id number] [address] [place] [address], [place] [address] Dec, 2013 [facility] [place] [facility] [address] [id number] [address] [place] [address], [place] [address] Oct, 2013 [facility] [place] [facility] [address] [id number] [address] [place] [address], [place] [address] Oct, 2013 [facility] [place] [facility] [address] [id number] [address] [place] [address], [place] [address] Oct, 2013 [facility] [address] [id number] [address] [place] [address], [place] [address] Oct, 2013 [facility] [place] [facility] [address] [id number] [address] [place] [address], [place] [address] Oct, 2013 [facility] [address] [id number] [address] [place] [address], [place] [address] Oct, 2013 [facility] [address] [id number] [address] [place] [address], [place] [address] Oct, 2013 [facility] [address] [id number] [address] [place] [address], [place] [address] Oct, [facility] [address] [id number] [address] [place] [address], [place] [address] Sep, [facility] [place] [facility] [address] [id number] [address] [place] [address], [place] [address] Sep, [facility] [place] [facility] [address] [id number] [address] [place] [address], [place] [address] Sep, [facility] [place] [facility] [address] [id number] [address] [place] [address], [place] [address] Sep, [facility] [place] [facility] [address] [id number] [address] [place] [address], [place] [address] Sep, [facility] [place] [facility] [address] [id number] [address] [place] [address], [place] [address] Sep, [facility] [place] [facility] [address] [id number] [address] [place] [address], [place] [address] Sep, [facility] [address] [id number] [address] [place] [address], [place] [address] Sep, [facility] [address] [id number] [address] [place] [address], [place] [address] Sep, [facility] [address] [id number] [address] [place] [address], [place] [address] Sep, [facility] [address] [id number] [address] [place] [address], [place] [address] August, [facility] [address] [id number] [address] [place] [address], [place] [address] August, [facility] [address] [id number] [address] [place] [address], [place] [address] August, [facility] [address] [id number] [address] [place] [address], [place] [address] August, [facility] [address] [id number] [address] [place] [address], [place] [address] August, [facility] [address] [id number] [address] [place] [address], [place] [address] August, [facility] [address] [id number] [address] [place] [address], [place] [address] August, [facility] [address] [id number] [address] [place] [address], [place] [address] August, [facility] [address] [id number] [address] [place] [address], [place] [address] August, [facility] [address] [id number] [address] [place] [address], [place] [address] August, [facility] [address] [id number] [address] [place] [address], [place] [address] August, [facility] [address] [id number] [address] [place] [address], [place] [address] August, [facility] [address] [id number] [address] [place] [address], [place] [address] Jul, [facility] [address] [id number] [facility] [place] [address] Jul, [facility] [address] [id number] [address] [place] [address], [place] [address] Jul, [facility] [address] [id number] [address] [place] [address], [place] [address] Jul, [facility] [address] [id number] [address] [place] [address], [place] [address] Jul, [facility] [address] [id number] [address] [place] [address], [place] [address] Jul, [facility] [address] [id number] [address] [place] [address], [place] [address] Jun, [facility] [address] [id number] [address] [place] [address], [place] [address] Jun, [facility] [address] [id number] [address] [place] [address], [place] [address] May, [facility] [address] [id number] [address] [place] [address], [place] [address] May, [facility] [address] [id number] [address] [place] [address], [place] [address] Apr, [facility] [address] [id number] [address] [place] [address], [place] [address] Apr, [facility] [address] [id number] [address] [place] [address], [place] [address] Apr, [facility] [place] [facility] [address] [id number] [address] [place] [address], [place] [address] Apr, [facility] [address] [id number] [address] [place] [address], [place] [address] Apr, [facility] [address] [id number] [address] [place] [address] [address] Apr, [facility] [address] [id number] [address] [place] [address], [place] [address] Apr, [facility] [address] [id number] [address] [place] [address], [place] [address] Apr, [facility] [address] [id number] [address] [place] [address], [place] [address] Apr, [facility] [address] [id number] [address] [place] [address], [place] [address] Apr, [facility] [address] [id number] [address] [place] [address], [place] [address] Apr, [facility] [address] [id number] [address] [place] [address], [place] [address] Apr, [facility] [address] [id number] [address] [place] [address], [place] [address] Apr, [facility] [address] [id number] [address] [place] [address], [place] [address] Mar, [facility] [address] [id number] [address] [place] [address], [place] [address] Mar, [facility] [address] [id number] [address] [place] [address], [place] [address] Mar, [facility] [address] [id number] [address] [place] [address], [place] [address] Mar, [facility] [place] [facility] [address] [id number] [address] [place] [address] Feb, [facility] [address] [id number] [address] [place] [address], [place] [address] Feb, [facility] [address] [id number] [address] [place] [address], [place] [address] Feb, [facility] [address] [id number] [address] [place] [address], [place] [address] Feb, [facility] [address] [id number] [address] [place] [address], [place] [address] 14 Jan, 2013 [facility] [address] [id number] [address] [place] [address], [place] [address] 14 Jan, 2013 [facility] [address] [id number] [address] [place] [address], [place] [address] 11 Jan, 2013 [facility] [address] [id number] [address] [place] [address], [place] [address] 11 Jan, 2013 [facility] [address] [id number] [address] [place] [address], [place] [address] 10 Jan, 2012 [facility] [address] [id number] [address] [place] [address], [place] [address] 10 Jan, 2013 [facility] [address] [id number] [address] [place] [address], [place] [address] 09 Jan, 2013 [facility] [address] [id number] [address] [place] [address], [place] [address] 09 Jan, 2013 [facility] [address] [id number] [address] [place] [address], [place] [address] Jan, [facility] [address] [id number] [address] [place] [address], [place] [address] 26 Dec, 2012 [facility] [address] [id number] [address] [place] [address], [place] [address] 16 Dec, 2012 [facility] [address] [id number] [address] [place] [address], [place] [address] 16 Dec, 2012 [facility] [address] [id number] [address] [place] [address], [place] [address] 13 Dec, 2012 [facility] [address] [id number] [address] [place] [address], [place] [address] 17 Nov, 2012 [facility] [address] [id number] [address] [place] [address], [place] [address] 17 Nov, 2012 [facility] [address] [id number] [address] [place] [address], [place] [address] Nov, [facility] [address] [id number] [address] [place] [address], [place] [address] Nov, [facility] [address] [id number] [address] [place] [address], [place] [address] Oct, [facility] [address] [id number] [address] [place] [address], [place] [address] Sep, [facility] [address] [id number] [address] [place] [address], [place] [address] August, [facility] [address] [id number] [address] [place] [address], [place] [address] August, [facility] [address] [id number] [address] [place] [address], [place] [address] August, [facility] [address] [id number] [address] [place] [address], [place] [address] August, [facility] [address] [id number] [address] [place] [address], [place] [id number] August, [facility] [address] [id number] [address] [place] [address], [place] [address] August, [facility] [address] [id number] [address] [place] [address], [place] [address] August, [facility] [address] [id number] [address] [place] [address], [place] [address] August, [facility] [address] [id number] [address] [place] [address], [place] [address] August, [facility] [address] [id number] [address] [place] [address], [place] [address] August, [facility] [address] [id number] [address] [place] [address], [place] [address] August, [facility] [address] [id number] [address] [place] [address], [place] [address] August, [facility] [address] [id number] [address] [place] [address], [place] [address] Jul, [facility] [address] [id number] [address] [place] [address], [place] [address] Jul, [facility] [address] [id number] [address] [place] [address], [place] [address] Jul, [facility] [address] [id number] [address] [place] [address], [place] [address] Jul, [facility] [address] [id number] [address] [place] [address], [place] [address] Jul, [facility] [address] [id number] [address] [place] [address], [place] [address] Jul, [facility] [address] [id number] [address] [place] [address], [place] [address] Jul, [facility] [address] [id number] [address] [place] [address], [place] [address] Jul, [facility] [address] [id number] [address] [place] [address], [place] [address] Jul, [facility] [address] [id number] [address] [place] [address], [place] [address] Jul, [facility] [address] [id number] [address] [place] [address], [place] [address] Jul, [facility] [address] [id number] [address] [place] [address], [place] [address] Jun, [facility] [address] [id number] [address] [place] [address], [place] [address] Jun, [facility] [address] [id number] [address] [place] [address], [place] [address] Jun, [facility] [address] [id number] [address] [place] [address], [place] [address] Jun, [facility] [address] [id number] [address] [place] [address], [place] [address] May, [facility] [address] [id number] [address] [place] [address], [place] [address] 14 May, 2012 [facility] [address] [id number] [address] [place] [address], [place] [address] 05 May, 2012 [facility] [address] [id number] [address] [place] [address], [place] [address] 04 May, 2012 [facility] [address] [id number] [address] [place] [address], [place] [address] 04 May, 2012 [facility] [address] [id number] [address] [place] [address], [place] [address] May, [facility] [address] [id number] [address] [place] [address], [place] [address] Apr, [facility] [address] [id number] [address] [place] [address], [place] [address] Apr, [facility] [address] [id number] [address] [place] [address], [place] [address] 30 Apr, 2012 [facility] [address] [id number] [address] [place] [address], [place] [address] Apr, [facility] [address] [id number] [address] [place] [address], [place] [address] 15 Mar, 2012 [facility] [address] [id number] [address] [place] [address], [place] [address] 14 Mar, 2012 [facility] [address] [id number] [address] [place] [address], [place] [address] 14 Mar, 2012 [facility] [address] [id number] [address] [place] [address], [place] [address] 14 Mar, 2012 [facility] [address] [id number] [address] [place] [address], [place] [address] 14 Mar, 2012 [facility] [address] [id number] [address] [place] [address], [place] [address] 06 Mar, 2012 [facility] [address] [id number] [address] [place] [address], [place] [address] Mar, [facility] [address] [id number] [address] [place] [address], [place] [address] Feb, [facility] [address] [id number] [address] [place] [address], [place] [address] Feb, [facility] [address] [id number] [address] [place] [address], [place] [address] Feb, [facility] [address] [id number] [address] [place] [address], [place] [address] Feb, [facility] [address] [id number] [address] [place] [address], [place] [address] Jan, [facility] [address] [id number] [address] [place] [address], [place] [address] Jan, [facility] [address] [id number] [address] [place] [address], [place] [address] Jan, [facility] [address] [id number] [address] [place] [address], [place] [address] Jan, [facility] [address] [id number] [address] [place] [address], [place] [address] Jan, [facility] [address] [id number] [address] [place] [address], [place] [address] Jan, [facility] [address] [id number] [address] [place] [address], [place] [address] Dec, [facility] [address] [id number] [address] [place] [address] Dec, [facility] [address] [id number] [address] [place] [address], [place] [address] Nov, [facility] [address] [id number] [address] [place] [address], [place] [address] Sep, [facility] [address] [id number] [address] [place] [address], [place] [address] August, [facility] [address] [id number] [address] [place] [address], [place] [address] August, [facility] [address] [id number] [address] [place] [address], [place] [address] August, [facility] [address] [id number] [address] [place] [address], [place] [address] August, [facility] [address] [id number] [address] [place] [address], [place] [address] August, [facility] [address] [id number] [address] [place] [address], [place] [address] Jun, [facility] [address] [id number] [address] [place] [address], [place] [address] Jun, [facility] [address] [id number] [address] [place] [address], [place] [address] Apr, [facility] [address] [id number] [address] [place] [address], [place] [address] Apr, [facility] [address] [id number] [address] [place] [address], [place] [address] Mar, [facility] [address] [id number] [address] [place] [address], [place] [address] 22 Feb, 2011 [facility] [address] [id number] [address] [place] [address], [place] [address] 14 Feb, 2011 [facility] [address] [id number] [address] [place] [address], [place] [address] 14 Feb, 2011 [facility] [address] [id number] [address] [place] [address], [place] [address] 17 Jan, 2011 [facility] [address] [id number] [address] [place] [address], [place] [address] 15 Jan, 2011 [facility] [address] [id number] [address] [place] [address], [place] [address] 15 Jan, 2011 [facility] [address] [id number] [address] [place] [address], [place] [address] 14 Jan, 2011 [facility] [address] [facility] [id number] [address] [place] [address] 15 May, 2010 [facility] [address] [facility] [id number] [address] [place] [id number] Mar, [facility] [address] [facility] [id number] [address] [place] [id number] Oct, [facility] [address] [facility] [id number] [address] [place] [id number] Sep, [facility] [address] [facility] [id number] [address] [place] [id number] Mar, [facility] [address] [facility] [id number] [address] [place] [id number] Jan, [facility] [address] [facility] [id number] [address] [place] [id number] Jan, [facility] [address] [facility] [id number] [address] [place] [id number] May, IMMUNIZATIONS No Known Immunizations SOCIAL HISTORY [...] squamous atypia (no definite dyplasia). Performed at [facility] Dr. Joy. Medical History Acute [...]
--- OUTSIDE RECORDS SUMMARY | 2019-11-23 05:59 | XMS REPORT ---
Author Author Liana Coe Doctor Organization [facility] Address Unknown Phone Unavailable Care Team Providers Care Retail Business Analyst Name Role Phone Migration, Doctor Unavailable Unavailable PROBLEMS Type Condition ICD9-CM Code [id number] Code Onset Dates Condition S tatus SNOMED Code Problem Hematuria, unspecified type R31.9 Ac tive 77905232 Problem Abnormal renal ultrasound R93.429 Acti ve [id number] Problem Anxiety F41.9 Active 22703733 Problem Hypokalemia E87.6 Active 72918031 Problem Abnormal glucose R73.09 Active 102 631849 Problem Chronic pain due to trauma G89.21 Act juanis 716205765 Problem Neuroforaminal stenosis of spine M99.89 Active [id number] Problem Neck pain M54.2 Active 25370681 Problem Essential hypertension I10 Active 13039563 Problem Mixed hyperlipidemia E78.2 Active 06778745 ALLERGIES Substance Reaction Event Type Date Status Peanut Unknown Non Drug Allergy Jul, Active Amitriptyline 25 Mg Tablet Unknown Non Drug Allergy Jul, 15 Active Flagyl 500 Mg Tablet took 3 days then quit r/t hives on arms Non Drug Allergy Jul, Active Macrobid Unknown Drug Allergy Jul, Active Cipro Unknown Drug Allergy Jul, Active ENCOUNTERS Encounter Location Date Diagnosis [place] [id number] [facility] [id number] [address] [place] [address] Sep, [place] [id number] [facility] [id number] [address] [place] [address] Sep, [place] [id number] [facility] [id number] [address] [place] [id number] 18 Sep, 2018 Routine screening for STI (s exually transmitted infection) Z11.3 [place] [id number] [facility] [id number] [address] [place] [address] Sep, Routine screening for STI (s exually transmitted infection) Z11.3 ; Well woman exam with routine gynecological exam Z01.419 and Breast cancer screening Z12.39 [facility] [address] [id number] [address] [place] [address] Sep, Neuroforaminal stenosis of s pine M99.89 [facility] [address] [id number] [address] [place] [address] August, Neuroforaminal stenosis of s pine M99.89 [place] [address] [id number] [address] [place] [address] August, Neuroforaminal stenosis of s pine M99.89 ; Chronic pain due to trauma G89.21 and Mixed hyperlipidemia E78.2 [place] [address] [id number] [address] [place] [address] Jul, Viral upper respiratory illn ess J06.9 and Acute non-recurrent frontal sinusitis J01.10 [place] [address] [id number] [address] [place] [address] Jul, Congestion of nasal sinus R0 9.81 [place] [address] [id number] [address] [place] [id number] Jul, Neuroforaminal stenosis of s pine M99.89 and Essential hypertension I10 [place] [address] [facility] [id number] [address] [place] [address] May, Neuroforaminal stenosis of s pine M99.89 [place] [address] [id number] [address] [place] [address] May, [facility] [address] [id number] [address] [place] [address] May, Congestion of nasal sinus R0 9.81 [facility] [address] [id number] [address] [place] [address] May, [facility] [address] [facility] [id number] [address] [place] [address] Apr, Neuroforaminal stenosis of s pine M99.89 [facility] [address] [id number] [address] [place] [address] Apr, Neuroforaminal stenosis of s jose M99.89 and Chronic pain due to trauma G89.21 [facility] [address] [id number] [address] [place] [address] Mar, UTI (urinary tract infection ) N39.0 [facility] [address] [id number] [address] [place] [address] Mar, Vertigo R42 [facility] [address] [id number] [address] [place] [address] Mar, Neuroforaminal stenosis of s jose M99.89 [facility] [address] [id number] [address] [place] [address] Feb, Extensor tendon disruption M 67.89 [facility] [address] [id number] [address] [place] [address] Feb, Neuroforaminal stenosis of ayla garcia M99.89 and High risk medication use Z79.899 [facility] [address] [id number] [address] [place] [address] Jan, Hypokalemia E87.6 [facility] [address] [facility] [id number] [address] [place] [address] Jan, Flank pain R10.9 and Acute r ight-sided low back pain without sciatica M54.5 [facility] [address] [id number] [address] [place] [address] Jan, Hypokalemia E87.6 [facility] [address] [facility] [id number] [address] [place] [address] Jan, [facility] [address] [id number] [address] [place] [address] Jan, URI, acute J06.9 [facility] [address] [id number] [address] [place] [address] 05 Jan, 2018 Neuroforaminal stenosis of s jose M99.89 [place] [address] [address] 13 Dec, 2017 Lateral epicondylitis, right elbow M77.11 [place] [address] [place] [id number] [place] [address] 11 Dec, 2017 Allergic rhinitis due to monica rosalina, unspecified seasonality J30.1 and Allergic conjunctivitis of both eyes H10.13 [place] [address] [place] [id number] [place] [address] 10 Dec, 2017 Neuroforaminal stenosis of s jose M99.89 [place] [address] [address] 06 Dec, 2017 Mixed hyperlipidemia E78.2 [place] [address] [address] 05 Dec, 2017 Abnormal glucose R73.09 ; Ab normal renal ultrasound R93.429 ; Dysuria R30.0 ; Cystitis without hematuria N30.90 ; Hypokalemia E87.6 ; Mixed hyperlipidemia E78.2 and Hematuria, unspecified type R31.9 [place] [address] [address] Nov, Hypokalemia E87.6 ; Mixed hy perlipidemia E78.2 and Hematuria, unspecified type R31.9 [place] [id number] [place] [address] Nov, [place] [address] [place] [id number] [place] [address] Nov, Hypokalemia E87.6 [place] [address] [place] [id number] [place] [address] Nov, [place] [address] [place] [id number] [place] [address] Nov, Abnormal renal ultrasound R9 3.429 [facility] [address] [id number] [address] [place] [address] 16 Nov, 2017 Abnormal renal ultrasound R9 3.429 [facility] [address] [id number] [address] [place] [address] 09 Nov, 2017 Hematuria, unspecified type R31.9 and Neuroforaminal stenosis of spine M99.89 [facility] [address] [id number] [address] [place] [address] Nov, Dysuria R30.0 [place] [address] [id number] [address] [place] [address] Oct, Lateral epicondylitis, right elbow M77.11 [place] [address] [id number] [address] [place] [address] Oct, Neuroforaminal stenosis of s pine M99.89 ; Visit for TB skin test Z11.1 and Essential hypertension I10 [place] [address] [id number] [address] [place] [address] Oct, [place] [address] [id number] [address] [place] [address] Oct, Neuroforaminal stenosis of s pine M99.89 [place] [address] [id number] [address] [place] [address] Oct, Visit for TB skin test Z11.1 [place] [address] [id number] [address] [place] [address] Oct, Cystitis without hematuria N 30.90 [place] [address] [id number] [address] [place] [address] Sep, Screening breast examination Z12.39 [place] [address] [id number] [address] [place] [address] Sep, Dysuria R30.0 and Cystitis w ithout hematuria N30.90 [place] [address] [id number] [address] [place] [address] 14 Sep, 2017 Essential hypertension I10 a nd Neuroforaminal stenosis of spine M99.89 [place] [id number] [id number] [address] [place] [address] 04 Sep, 2017 Abnormal glucose R73.09 [place] [address] [id number] [address] [place] [address] August, Lateral epicondylitis, right elbow M77.11 [place] [address] [id number] [address] [place] [address] August, Screen for STD (sexually tra nsmitted disease) Z11.3 [place] [address] [facility] [id number] [address] [place] [address] August, Neuroforaminal stenosis of s pine M99.89 ; Mixed hyperlipidemia E78.2 ; Elevated fasting glucose R73.01 ; Screening mammogram, encounter for Z12.31 and Encounter for well woman exam without gynecological exam Z00.00 [place] [address] [id number] [address] [place] [address] August, Neuroforaminal stenosis of s pine M99.89 [place] [address] [id number] [address] [place] [address] August, Essential hypertension I10 ; Hypokalemia E87.6 and Mixed hyperlipidemia E78.2 [place] [address] [id number] [address] [place] [address] Jul, [place] [address] [id number] [address] [place] [address] Jul, Neuroforaminal stenosis of s pine M99.89 [place] [address] [id number] [address] [place] [address] Jul, Lateral epicondylitis, right elbow M77.11 [place] [address] [id number] [address] [place] [address] Jul, [place] [address] [place] [id number] [address] [place] [address] Jun, High ankle sprain of right l ower extremity, initial encounter S93.431A [place] [address] [place] [id number] [place] [address] Jun, Essential hypertension I10 [place] [address] [place] [id number] [address] [place] [address] Jun, [place] [address] [facility] [id number] [address] [place] [address] Jun, [place] [address] [place] [id number] [address] [place] [address] Jun, Neuroforaminal stenosis of s pine M99.89 [place] [address] [place] [id number] [place] [address] Jun, Pain of right upper extremit y M79.601 and Essential hypertension I10 [place] [address] [address] Jun, [place] [address] [place] [id number] [place] [address] Jun, Dysuria R30.0 ; Acute cystit is with hematuria N30.01 and Screen for STD (sexually transmitted disease) Z11.3 [place] [address] [place] [id number] [address] [place] [address] May, Chronic pain due to trauma G 89.21 [place] [address] [facility] [id number] [address] [place] [address] May, Essential hypertension I10 [place] [address] [facility] [id number] [address] [place] [address] May, Neuroforaminal stenosis of s pine M99.89 [place] [address] [place] [id number] [address] [place] [address] Apr, Allergic reaction, initial e ncounter T78.40XA [place] [address] [facility] [id number] [address] [place] [address] Apr, Low back pain, unspecified b ack pain laterality, unspecified chronicity, with sciatica presence unspecified M54.5 ; Acute cystitis with hematuria N30.01 ; Neuroforaminal stenosis of spine M99.89 ; Bilateral acute serous otitis media, recurrence not specified H65.03 ; Mixed hyperlipidemia E78.2 ; Essential hypertension I10 ; Immunization counseling Z71.89 and Encounter for immunization Z23 [place] [address] [facility] [id number] [address] [place] [address] 08 Apr, 2017 Neck pain M54.2 [place] [address] [facility] [id number] [address] [place] [address] Mar, Neuroforaminal stenosis of s pine M99.89 [place] [address] [place] [id number] [address] [place] [address] Mar, Pharyngitis due to other org anism J02.8 [place] [address] [facility] [id number] [address] [place] [address] Feb, Neuroforaminal stenosis of s pine M99.89 [place] [address] [facility] [id number] [address] [place] [address] Feb, UTI (urinary tract infection ) N39.0 [place] [address] [facility] [id number] [address] [place] [address] Feb, Recent urinary tract infecti on Z87.440 ; Neuroforaminal stenosis of spine M99.89 ; Neck pain M54.2 ; Chronic pain due to trauma G89.21 and Recurrent UTI N39.0 [place] [address] [facility] [id number] [address] [place] [address] Feb, [place] [address] [facility] [id number] [address] [place] [address] Jan, Neuroforaminal stenosis of s pine M99.89 [place] [address] [facility] [id number] [address] [place] [address] Dec, Neuroforaminal stenosis of s pine M99.89 [facility] [address] [id number] [address] [place] [address] Dec, Acute seasonal allergic rhin itis due to pollen J30.1 [facility] [address] [id number] [address] [place] [address] Dec, [facility] [address] [id number] [address] [place] [address] Dec, Acute seasonal allergic rhin itis, unspecified trigger J30.2 ; Allergic conjunctivitis of both eyes H10.13 and Dysfunction of both eustachian tubes H69.83 [place] [address] [facility] [id number] [address] [place] [address] Dec, [place] [address] [facility] [id number] [address] [place] [address] Dec, Nevus D22.9 [place] [address] [facility] [id number] [address] [place] [address] Nov, Chronic pain due to trauma G 89.21 and Neuroforaminal stenosis of spine M99.89 [place] [address] [facility] [id number] [address] [place] [address] Nov, Neuroforaminal stenosis of s pine M99.89 ; Essential hypertension I10 ; Mixed hyperlipidemia E78.2 ; Hypokalemia E87.6 ; Neck pain M54.2 and Nevus D22.9 [place] [id number] [id number] [address] [place] [address] Oct, Neuroforaminal stenosis of s pine M99.89 [place] [address] [id number] [address] [place] [address] Sep, Neuroforaminal stenosis of s pine M99.89 [facility] [address] [facility] [id number] [address] [place] [address] Sep, [place] [address] [place] [id number] [address] [place] [address] August, [facility] [address] [id number] [address] [place] [address] August, Neck pain M54.2 and Neurofor aminal stenosis of spine M99.89 [facility] [address] [id number] [address] [place] [address] August, Routine gynecological examin ation Z01.419 and Screening breast examination Z12.39 [facility] [address] [id number] [address] [place] [address] Jul, [facility] [address] [id number] [address] [place] [address] Jul, [facility] [address] [id number] [address] [place] [address] Jul, Neuroforaminal stenosis of s pine M99.89 [facility] [address] [id number] [address] [place] [address] Jul, [facility] [address] [id number] [address] [place] [address] Jul, Neuroforaminal stenosis of l umbar 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 [facility] [address] [id number] [address] [place] [address] Jul, [facility] [address] [id number] [address] [place] [address] Jul, [facility] [address] [id number] [address] [place] [address] Jun, Neuroforaminal stenosis of s pine M99.89 [facility] [address] [id number] [address] [place] [address] Jun, Uterine leiomyoma, unspecifi ed location D25.9 and Allergic reaction caused by a drug, initial encounter T78.40XA [facility] [address] [id number] [address] [place] [address] Jun, [place] [id number] [facility] [id number] [address] [place] [address] May, UTI symptoms R39.9 and Pain of right sacroiliac joint M53.3 [place] [address] [facility] [id number] [address] [place] [address] May, Neuroforaminal stenosis of s pine M99.89 [place] [address] [id number] [address] [place] [address] May, [place] [address] [facility] [id number] [address] [place] [address] May, Acute mucoid otitis media of left ear H65.112 and Acute non- recurrent maxillary sinusitis J01.00 [place] [address] [place] [id number] [address] [place] [address] May, Acute bacterial conjunctivit is of both eyes H10.33 ; Left arm pain M79.602 and Hypokalemia E87.6 [place] [address] [facility] [id number] [address] [place] [address] Apr, [place] [address] [place] [id number] [address] [place] [address] Apr, Neuroforaminal stenosis of s pine M99.89 ; Neck pain M54.2 ; Chronic pain due to trauma G89.21 ; Mixed hyperlipidemia E78.2 ; Essential hypertension I10 and Hypokalemia E87.6 [place] [address] [id number] [address] [place] [address] Mar, Oral candidiasis B37.0 ; Nathaniel roforaminal stenosis of spine M99.89 ; Neck pain M54.2 and Chronic pain due to trauma G89.21 [place] [address] [facility] [id number] [address] [place] [address] Feb, [place] [address] [place] [id number] [address] [place] [address] Feb, [facility] [address] [id number] [address] [place] [address] Feb, UTI (urinary tract infection ) N39.0 [facility] [address] [id number] [address] [place] [address] 09 Feb, 2016 Dysuria R30.0 [facility] [address] [id number] [address] [place] [address] 08 Feb, 2016 Dysuria R30.0 [facility] [address] [id number] [address] [place] [address] Feb, Neuroforaminal stenosis of s pine M99.89 ; Neck pain M54.2 ; Essential hypertension I10 ; Chronic pain due to trauma G89.21 ; Dysuria R30.0 ; Abnormal MRI, shoulder R93.8 and Acute cystitis without hematuria N30.00 [facility] [address] [id number] [address] [place] [address] Jan, [facility] [address] [id number] [address] [place] [address] Jan, [facility] [address] [id number] [address] [place] [address] Jan, [facility] [address] [id number] [address] [place] [id number] Jan, Abnormal MRI R93.8 [facility] [address] [id number] [address] [place] [id number] Dec, [facility] [address] [id number] [address] [place] [id number] 15 Dec, 2015 Acute pain of left shoulder M25.512 [facility] [address] [id number] [address] [place] [id number] 09 Dec, 2015 [facility] [address] [id number] [address] [place] [id number] Dec, [facility] [address] [id number] [address] [place] [id number] 07 Dec, 2015 Acute pain of left shoulder M25.512 [facility] [address] [id number] [address] [place] [id number] Nov, [facility] [address] [id number] [address] [place] [id number] Nov, Neuroforaminal stenosis of s pine M99.89 ; Neck pain M54.2 ; Abnormal mammogram R92.8 ; Essential hypertension I10 and Chronic pain due to trauma G89.21 [facility] [address] [id number] [address] [place] [id number] Nov, [facility] [address] [id number] [address] [place] [id number] Oct, Acute stress disorder F43.0 [facility] [address] [id number] [address] [place] [address] [address] Oct, [facility] [address] [id number] [address] [place] [address] Oct, [facility] [address] [id number] [address] [place] [address] Oct, [facility] [address] [id number] [address] [place] [address] Sep, [facility] [address] [id number] [address] [place] [address] August, [facility] [address] [id number] [address] [place] [address] Jul, Neuroforaminal stenosis of s pine M99.89 ; Neck pain M54.2 ; Abnormal mammogram R92.8 and Essential hypertension I10 [facility] [address] [id number] [address] [place] [address] Jul, [facility] [address] [id number] [address] [place] [address] Jul, [facility] [address] [facility] [id number] [address] [place] [address] Jul, Abnormal mammogram R92.8 [facility] [address] [facility] [id number] [address] [place] [address] Jul, [facility] [address] [facility] [id number] [address] [place] [address] Jul, UTI (urinary tract infection ) N39.0 [facility] [address] [facility] [id number] [address] [place] [address] Jul, Dysuria R30.0 [facility] [address] [facility] [id number] [address] [place] [address] Jun, [facility] [address] [facility] [id number] [address] [place] [address] Jun, [facility] [address] [facility] [id number] [address] [place] [address] Jun, Hypokalemia E87.6 and Hematu martina R31.9 [facility] [address] [facility] [id number] [address] [place] [address] Jun, Hypokalemia E87.6 [facility] [address] [facility] [id number] [address] [place] [address] Jun, [place] [address] [facility] [id number] [address] [place] [address] Jun, Hypokalemia E87.6 [facility] [address] [facility] [id number] [address] [place] [address] Jun, Hypokalemia E87.6 [facility] [address] [facility] [id number] [address] [place] [address] 15 Jun, 2015 Neuroforaminal stenosis of s pine M99.89 ; Hypokalemia E87.6 ; Neck pain M54.2 ; Essential hypertension I10 ; Mixed hyperlipidemia E78.2 and Screening breast examination Z12.39 [facility] [address] [facility] [id number] [address] [place] [address] 08 Jun, 2015 Dysuria R30.0 ; UTI (urinary tract infection) N39.0 and Hematuria R31.9 [facility] [address] [facility] [id number] [address] [place] [address] May, [facility] [address] [place] [id number] [place] [address] May, High risk sexual behavior Z7 2.51 ; Hypokalemia E87.6 ; Neuroforaminal stenosis of spine M99.89 ; Neck pain M54.2 ; Essential hypertension I10 ; Mixed hyperlipidemia E78.2 ; STD exposure Z20.2 and Concern about STD in female without diagnosis Z71.1 [facility] [address] [place] [id number] [address] [place] [address] 16 May, 2015 Neuroforaminal stenosis of s pine M99.89 ; Neck pain M54.2 ; Hypokalemia E87.6 ; Essential hypertension I10 and Mixed hyperlipidemia E78.2 [facility] [address] [place] [id number] [address] [place] [address] May, [facility] [address] [place] [place] [id number] [address] [place] [address] 08 May, 2015 High risk sexual behavior Z7 2.51 ; STD exposure Z20.2 and Concern about STD in female without diagnosis Z71.1 [facility] [id number] [place] [address] May, [facility] [address] [place] [id number] [address] [place] [address] Apr, Neuroforaminal stenosis of s pine M99.89 ; Mixed hyperlipidemia E78.2 ; Essential hypertension I10 and Hypokalemia E87.6 [facility] [address] [facility] [id number] [address] [place] [address] Mar, [facility] [address] [place] [id number] [address] [place] [address] Mar, Hypokalemia E87.6 [facility] [address] [facility] [id number] [address] [place] [address] Mar, Neuroforaminal stenosis of s pine M99.89 ; Mixed hyperlipidemia E78.2 ; Neck pain M54.2 ; Essential hypertension I10 ; Abnormal fasting glucose R73.09 ; Hypokalemia E87.6 and Constipation K59.00 [place] [address] [facility] [id number] [address] [place] [address] Feb, Neuroforaminal stenosis of s pine M99.89 ; Mixed hyperlipidemia E78.2 ; Neck pain M54.2 ; Essential hypertension I10 ; Abnormal fasting glucose R73.09 ; Hypokalemia E87.6 and Constipation K59.00 [place] [address] [place] [id number] [address] [place] [address] Feb, Elevated fasting blood sugar R73.01 [place] [address] [place] [id number] [address] [place] [address] Feb, Elevated fasting blood sugar R73.01 [place] [address] [place] [id number] [address] [place] [address] Feb, Hair loss L65.9 [place] [address] [place] [id number] [address] [place] [address] Feb, Sinusitis J32.9 ; Essential hypertension I10 and Hair loss L65.9 [place] [id number] [place] [id number] [address] [place] [address] Jan, [place] [address] [facility] [id number] [address] [place] [address] Jan, Essential hypertension I10 ; Neuroforaminal stenosis of spine M99.89 ; Neck pain M54.2 ; Mixed hyperlipidemia E78.2 and Anxiety F41.9 [facility] [address] [place] [id number] [address] [place] [address] Jan, [place] [address] [place] [id number] [address] [place] [address] Jan, Mixed hyperlipidemia E78.2 ; Essential (primary) hypertension I10 ; Strain of muscle, fascia and tendon at neck level, subsequent encounter S16.1XXD and Tension-type headache, unspecified, not intractable G44.209 [facility] [address] [id number] [address] [place] [address] Dec, Lumbar back pain 724.2 and N euroforaminal stenosis of spine 724.00 [facility] [address] [id number] [address] [place] [address] Nov, [facility] [address] [id number] [address] [place] [address] Nov, Lumbar back pain 724.2 and N euroforaminal stenosis of spine 724.00 [facility] [address] [id number] [address] [place] [address] Nov, Edema 782.3 ; Lumbar back pa in 724.2 ; Essential hypertension, benign 401.1 ; Hyperlipemia 272.4 ; Neuroforaminal stenosis of spine 724.00 and Post-concussion headache 339.20 [facility] [address] [id number] [address] [place] [address] Nov, [facility] [address] [id number] [address] [place] [address] Nov, [facility] [address] [id number] [address] [place] [address] Oct, Essential hypertension, sheridan gn 401.1 [facility] [address] [id number] [address] [place] [address] Oct, Edema 782.3 ; Lumbar back pa in 724.2 ; Essential hypertension, benign 401.1 ; Hyperlipemia 272.4 ; Neuroforaminal stenosis of spine 724.00 and Post-concussion headache 339.20 [facility] [address] [id number] [address] [place] [address] Oct, [facility] [address] [id number] [address] [place] [address] Oct, Edema 782.3 [facility] [address] [id number] [address] [place] [address] Oct, Lumbar back pain 724.2 [facility] [address] [id number] [address] [place] [address] Oct, Cervicalgia 723.1 ; Lumbar b ack pain 724.2 and High risk medication use V58.69 [facility] [address] [id number] [address] [place] [address] Sep, [facility] [address] [facility] [id number] [address] [place] [address] Sep, Lumbar strain 847.2 [facility] [address] [facility] [id number] [address] [place] [address] August, Edema 782.3 and Eustachian t ube dysfunction 381.81 [facility] [address] [id number] [address] [place] [address] August, [facility] [address] [facility] [id number] [address] [place] [address] August, Eustachian tube dysfunction 381.81 [facility] [address] [id number] [address] [place] [address] Jul, Otalgia 388.70 and Otitis me jonathon 382.9 [facility] [address] [id number] [address] [place] [address] Jul, [facility] [address] [facility] [id number] [address] [place] [address] Jul, [facility] [address] [facility] [id number] [address] [place] [address] Jul, [facility] [address] [facility] [id number] [address] [place] [address] Jul, [facility] [address] [id number] [address] [place] [address], [place] [address] 13 Jul, 2014 [facility] [address] [id number] [address] [place] [address], [place] [address] 27 Jun, 2014 [facility] [address] [id number] [address] [place] [address], [place] [address] Jun, [facility] [address] [id number] [address] [place] [address], [place] [address] 16 Jun, 2014 [facility] [address] [id number] [address] [place] [address], [place] [address] May, [facility] [address] [id number] [address] [place] [address], [place] [address] May, 2014 [facility] [address] [id number] [address] [place] [address], [place] [address] May, 2014 [facility] [address] [id number] [address] [place] [address], [place] [address] May, 2014 [facility] [address] [id number] [address] [place] [address], [place] [address] May, 2014 [facility] [address] [id number] [address] [place] [address], [place] [address] May, [facility] [address] [id number] [address] [place] [address], [place] [address] May, 2014 [facility] [address] [id number] [address] [place] [address], [place] [address] May, 2014 [facility] [address] [id number] [address] [place] [address], [place] [address] May, 2014 [facility] [address] [id number] [address] [place] [address], [place] [address] May, 2014 [facility] [address] [id number] [address] [place] [address], [place] [address] Apr, [facility] [address] [id number] [address] [place] [address], [place] [address] Apr, [facility] [address] [id number] [address] [place] [address], [place] [address] Apr, [facility] [address] [id number] [address] [place] [address], [place] [address] Apr, [facility] [address] [id number] [address] [place] [address], [place] [address] Apr, [facility] [address] [id number] [address] [place] [address], [place] [address] Apr, [facility] [address] [id number] [address] [place] [address], [place] [address] Apr, [facility] [address] [id number] [address] [place] [address], [place] [address] Apr, [facility] [address] [id number] [address] [place] [address], [place] [address] Apr, [facility] [address] [id number] [address] [place] [address], [place] [address] Apr, [facility] [address] [id number] [address] [place] [address], [place] [address] Apr, [facility] [address] [id number] [address] [place] [address], [place] [address] Apr, [facility] [address] [id number] [address] [place] [address], [place] [address] Apr, [facility] [address] [id number] [address] [place] [address], [place] [address] Apr, [facility] [address] [id number] [address] [place] [address], [place] [address] Apr, [facility] [address] [id number] [address] [place] [address], [place] [address] Mar, [facility] [address] [id number] [address] [place] [address], [place] [address] Mar, [facility] [address] [id number] [address] [place] [address], [place] [address] Mar, [facility] [address] [id number] [address] [place] [address], [place] [address] Mar, [facility] [address] [id number] [address] [place] [address], [place] [address] Feb, [facility] [address] [id number] [address] [place] [address], [place] [address] Feb, [facility] [address] [id number] [address] [place] [address], [place] [address] Feb, [facility] [address] [id number] [address] [place] [address], [place] [address] Feb, [facility] [address] [id number] [address] [place] [address], [place] [address] Jan, [facility] [address] [id number] [address] [place] [address], [place] [address] Jan, [facility] [address] [id number] [address] [place] [address], [place] [address] Jan, [facility] [address] [id number] [address] [place] [address], [place] [address] Jan, [facility] [address] [id number] [address] [place] [address], [place] [address] Jan, [facility] [address] [id number] [address] [place] [address] Jan, [facility] [address] [id number] [address] [place] [address], [place] [address] Jan, [facility] [address] [id number] [address] [place] [address], [place] [address] Jan, [facility] [address] [id number] [address] [place] [address], [place] [address] Dec, [facility] [address] [id number] [address] [place] [address] [place] [address] 29 Dec, 2013 [facility] [address] [id number] [facility] [place] [address] 04 Dec, 2013 [facility] [address] [id number] [address] [place] [address], [place] [address] Dec, 2013 [facility] [address] [id number] [address] [place] [address], [place] [address] Oct, 2013 [facility] [address] [id number] [address] [place] [address], [place] [address] Oct, 2013 [facility] [address] [id number] [address] [place] [address], [place] [address] Oct, [facility] [address] [id number] [address] [place] [address], [place] [address] Oct, 2013 [facility] [address] [id number] [address] [place] [address], [place] [address] Oct, 2013 [facility] [address] [id number] [address] [place] [address], [place] [address] Oct, 2013 [facility] [address] [id number] [address] [place] [address], [place] [address] Oct, [facility] [address] [id number] [address] [place] [address], [place] [address] Oct, [facility] [address] [id number] [address] [place] [address], [place] [address] Sep, [facility] [address] [id number] [address] [place] [address], [place] [address] Sep, [facility] [address] [id number] [address] [place] [address], [place] [address] Sep, [facility] [address] [id number] [address] [place] [address], [place] [address] Sep, [facility] [address] [id number] [address] [place] [address], [place] [address] Sep, [facility] [address] [id number] [address] [place] [address], [place] [address] Sep, [facility] [address] [id number] [address] [place] [address], [place] [address] Sep, [facility] [address] [id number] [address] [place] [address], [place] [address] Sep, [facility] [address] [id number] [address] [place] [address], [place] [address] Sep, [facility] [address] [id number] [address] [place] [address], [place] [address] Sep, [facility] [address] [id number] [address] [place] [address], [place] [address] August, [facility] [address] [id number] [address] [place] [address], [place] [address] August, [facility] [address] [id number] [address] [place] [address], [place] [address] August, [facility] [address] [id number] [address] [place] [address], [place] [address] August, [facility] [address] [id number] [address] [place] [address], [place] [address] August, [facility] [address] [id number] [address] [place] [address], [place] [address] August, [facility] [address] [id number] [address] [place] [address], [place] [address] August, [facility] [address] [id number] [address] [place] [address], [place] [address] August, [facility] [address] [id number] [address] [place] [address], [place] [address] August, [facility] [address] [id number] [address] [place] [address], [place] [address] August, [facility] [address] [id number] [address] [place] [address], [place] [address] August, [facility] [address] [id number] [facility] [place] [address] August, [facility] [address] [id number] [address] [place] [address], [place] [address] Jul, [facility] [address] [id number] [facility] [place] [address] Jul, [facility] [address] [id number] [address] [place] [address], [place] [address] Jul, [facility] [address] [id number] [address] [place] [address], [place] [address] Jul, [facility] [address] [id number] [address] [place] [address], [place] [address] Jul, [facility] [address] [id number] [address] [place] [address], [place] [address] Jul, [facility] [address] [id number] [address] [place] [address], [place] [address] Jun, [facility] [address] [id number] [address] [place] [address], [place] [address] Jun, [facility] [address] [id number] [address] [place] [address], [place] [address] May, [facility] [address] [id number] [address] [place] [address], [place] [address] May, [facility] [address] [id number] [address] [place] [address], [place] [address] Apr, [facility] [address] [id number] [address] [place] [address], [place] [address] Apr, [facility] [address] [id number] [address] [place] [address], [place] [address] Apr, [facility] [address] [id number] [address] [place] [address], [place] [address] Apr, [facility] [address] [id number] [address] [place] [address], [place] [address] Apr, [facility] [address] [id number] [address] [place] [address], [place] [address] Apr, [facility] [address] [id number] [address] [place] [address], [place] [address] Apr, [facility] [address] [id number] [address] [place] [address], [place] [address] Apr, [facility] [address] [id number] [address] [place] [address], [place] [address] Apr, [facility] [address] [id number] [address] [place] [address], [place] [address] Apr, [facility] [address] [id number] [address] [place] [address], [place] [address] Apr, [facility] [address] [id number] [address] [place] [address], [place] [address] Apr, [facility] [address] [id number] [address] [place] [address], [place] [address] Apr, [facility] [address] [id number] [address] [place] [address], [place] [address] Mar, [facility] [address] [id number] [address] [place] [address], [place] [address] Mar, [facility] [address] [id number] [address] [place] [address], [place] [address] Mar, [facility] [address] [id number] [address] [place] [address] [address] Mar, [facility] [address] [id number] [address] [place] [address], [place] [address] Feb, [facility] [address] [id number] [address] [place] [address], [place] [address] Feb, [facility] [address] [id number] [address] [place] [address], [place] [address] Feb, [facility] [address] [id number] [address] [place] [address], [place] [address] 08 Feb, 2013 [facility] [address] [id number] [address] [place] [address], [place] [address] 14 Jan, 2013 [facility] [address] [id number] [address] [place] [address], [place] [address] 14 Jan, 2013 [facility] [address] [id number] [address] [place] [address], [place] [address] Jan, [facility] [address] [id number] [address] [place] [address], [place] [address] Jan, [facility] [address] [id number] [address] [place] [address], [place] [address] Jan, [facility] [address] [id number] [address] [place] [address], [place] [address] Jan, [facility] [address] [id number] [address] [place] [address] Jan, [facility] [address] [id number] [address] [place] [address], [place] [address] Jan, [facility] [address] [id number] [address] [place] [address] Jan, [facility] [address] [id number] [address] [place] [address] 26 Dec, 2012 [facility] [address] [id number] [address] [place] [address] 16 Dec, 2012 [facility] [address] [id number] [address] [place] [address] 16 Dec, 2012 [facility] [address] [id number] [address] [place] [address] 13 Dec, 2012 [facility] [address] [id number] [address] [place] [address] 17 Nov, 2012 [facility] [address] [id number] [address] [place] [address] Nov, [facility] [address] [id number] [address] [place] [address], [place] [address] Nov, [facility] [address] [id number] [address] [place] [address], [place] [address] Nov, [facility] [address] [id number] [address] [place] [address], [place] [address] Oct, [facility] [address] [id number] [address] [place] [address], [place] [address] Sep, [facility] [address] [id number] [address] [place] [address], [place] [address] August, [facility] [address] [id number] [address] [place] [address], [place] [address] August, [facility] [address] [id number] [address] [place] [address], [place] [address] August, [facility] [address] [id number] [address] [place] [address], [place] [address] August, [facility] [address] [id number] [address] [place] [address], [place] [address] August, [facility] [address] [id number] [address] [place] [address], [place] [address] August, [facility] [address] [id number] [address] [place] [address], [place] [address] August, [facility] [address] [id number] [address] [place] [address], [place] [address] August, [facility] [address] [id number] [address] [place] [address], [place] [address] August, [facility] [address] [id number] [address] [place] [address], [place] [address] August, [facility] [address] [id number] [address] [place] [address], [place] [address] August, [facility] [address] [id number] [facility] [place] [address] August, [facility] [address] [id number] [address] [place] [address], [place] [address] Jul, [facility] [address] [id number] [address] [place] [address], [place] [address] Jul, [facility] [address] [id number] [address] [place] [address], [place] [address] Jul, [facility] [address] [id number] [address] [place] [address], [place] [address] 15 Jul, 2012 [facility] [address] [id number] [address] [place] [address], [place] [address] Jul, [facility] [address] [id number] [address] [place] [address], [place] [address] Jul, [facility] [address] [id number] [address] [place] [address], [place] [address] Jul, [facility] [address] [id number] [address] [place] [address], [place] [address] Jul, [facility] [address] [id number] [address] [place] [address], [place] [address] Jul, [facility] [address] [id number] [address] [place] [address], [place] [address] Jul, [facility] [address] [id number] [address] [place] [address], [place] [address] Jul, [facility] [address] [id number] [address] [place] [address], [place] [address] Jun, [facility] [address] [id number] [address] [place] [address], [place] [address] Jun, [facility] [address] [id number] [address] [place] [address], [place] [address] Jun, [facility] [address] [id number] [address] [place] [address], [place] [address] Jun, [facility] [address] [id number] [address] [place] [address], [place] [address] May, [facility] [address] [id number] [address] [place] [address], [place] [address] May, [facility] [address] [id number] [address] [place] [address], [place] [address] May, [facility] [address] [id number] [address] [place] [address], [place] [address] May, [facility] [address] [id number] [address] [place] [address], [place] [address] May, [facility] [address] [id number] [address] [place] [address], [place] [address] May, [facility] [address] [id number] [address] [place] [address], [place] [address] Apr, [facility] [address] [id number] [address] [place] [address], [place] [address] Apr, [facility] [address] [id number] [address] [place] [address], [place] [address] Apr, [facility] [address] [id number] [address] [place] [address], [place] [address] Apr, [facility] [address] [id number] [address] [place] [address], [place] [address] 15 Mar, 2012 [facility] [address] [id number] [address] [place] [address], [place] [address] 14 Mar, 2012 [facility] [address] [id number] [address] [place] [address], [place] [address] 14 Mar, 2012 [facility] [address] [id number] [address] [place] [address], [place] [address] 14 Mar, 2012 [facility] [address] [id number] [address] [place] [address], [place] [address] 14 Mar, 2012 [facility] [address] [id number] [address] [place] [address], [place] [address] Mar, [facility] [address] [id number] [address] [place] [address], [place] [address] Mar, [facility] [address] [id number] [address] [place] [address], [place] [address] Feb, [facility] [address] [id number] [address] [place] [address], [place] [address] Feb, [facility] [address] [id number] [address] [place] [address], [place] [address] Feb, [facility] [address] [id number] [address] [place] [address], [place] [address] Feb, [facility] [address] [id number] [address] [place] [address], [place] [address] Jan, [facility] [address] [id number] [address] [place] [address], [place] [address] Jan, [facility] [address] [id number] [address] [place] [address], [place] [address] Jan, [facility] [address] [id number] [address] [place] [address], [place] [address] Jan, [facility] [address] [id number] [address] [place] [address], [place] [address] Jan, [facility] [address] [id number] [address] [place] [address], [place] [address] Jan, [facility] [address] [id number] [address] [place] [address], [place] [address] Dec, [facility] [address] [id number] [address] [place] [address], [place] [address] Dec, [facility] [address] [id number] [address] [place] [address], [place] [address] Nov, [facility] [address] [id number] [address] [place] [address], [place] [address] Sep, [facility] [address] [id number] [address] [place] [address], [place] [address] August, [facility] [address] [id number] [address] [place] [address], [place] [address] August, [facility] [address] [id number] [address] [place] [address], [place] [address] August, [facility] [address] [id number] [address] [place] [address], [place] [address] August, [facility] [address] [id number] [address] [place] [address], [place] [address] August, [facility] [address] [id number] [address] [place] [address], [place] [address] Jun, [facility] [address] [id number] [address] [place] [address], [place] [address] Jun, [facility] [address] [id number] [address] [place] [address], [place] [address] Apr, [facility] [address] [id number] [address] [place] [address], [place] [address] Apr, [facility] [address] [id number] [address] [place] [address], [place] [address] Mar, [facility] [address] [id number] [address] [place] [address], [place] [address] Feb, [facility] [address] [id number] [address] [place] [address], [place] [address] 14 Feb, 2011 [facility] [address] [id number] [address] [place] [address], [place] [address] 14 Feb, 2011 [facility] [address] [id number] [address] [place] [address], [place] [address] 17 Jan, 2011 [facility] [address] [id number] [address] [place] [address], [place] [address] 15 Jan, 2011 [facility] [address] [id number] [address] [place] [address] 15 Jan, 2011 [facility] [address] [id number] [address] [place] [address] 14 Jan, 2011 [facility] [address] [id number] [address] [place] [address] 15 May, 2010 [facility] [address] [id number] [address] [place] [address] Mar, [facility] [address] [id number] [address] [place] [address] Oct, [facility] [address] [id number] [address] [place] [address] Sep, [facility] [address] [id number] [address] [place] [address] Mar, [facility] [address] [id number] [address] [place] [address] Jan, [facility] [address] [id number] [address] [place] [address] Jan, [facility] [address] [id number] [address] [place] [address] May, IMMUNIZATIONS No Known Immunizations SOCIAL HISTORY Never Assessed REASON FOR VISIT EMR-[facility] [place] PLAN OF CARE VITAL SIGNS MEDICATIONS Medication Instructions Dosage Frequency Start Date End Date Duration S tatus Augmentin 875-125 mg 1 tablet by Oral route 2 times pe r day for 10 day(s) Jun, Active amlodipine 10 mg 1 tablet by Oral route 1 time per day 2 Jun, Active Doxycycline Hyclate 100 mg take 1 tablet (100 mg) by oral route 2 times per day for 7 days Jun, Active Macrobid 100 mg 1 capsule by Oral route 2 times per da y for 7 day(s) Jul, Active MiraLax 17 gram/dose take 8.5 g mixed wi th 8 oz. water or juice by Oral route 1 time per day Sep, Active PredniSONE 10 mg 1 Tablet 2 times per day for 5 days T viv at 8 am and noon. Jul, Active Amoxicillin 500 mg 2 capsule by Oral route 2 times per day for 10 day(s) August, Active HydrOXYzine HCl 10 mg 1 tablet by Oral route 4-6 times per day PRN Jun, Active tramadol 50 mg take 1 tablet by Ora l route every 4-6 hours as needed PRN pain. Must last 30 days. May, Act juanis Aciphex 20 mg 1 tablet by Oral route 1 time per day PRN Sep, Active gentamicin 0.3 % 1 drop by Ophthalmic route 4 times pe r day for 7 day(s) Nov, Active cyclobenzaprine 10 mg 1 tablet 3 times per day PRN 2013 Active Clindamycin Phosphate 2 % insert 1 appli catorful by Vaginal route at bedtime 1 time per day for 7 days [employer]ER Apr, Active pravastatin 40 mg 1 tablet by Oral rou te 1 time per day QHS. Avoid grapefruit juice and products with grapefruit. August, Active PredniSONE 20 mg 2 tablet by Oral route 1 time per day for 5 day(s) Apr, Active Neurontin 100 mg 1 capsule by Oral route 3 times per d ay PRN for pain May, Active Amoxicillin 875 mg 1 tablet by Oral route 2 times per day for 7 day(s) August, Active Flagyl 500 mg 1 tablet by Oral route 2 times per day f or 7 days May, Active Ibuprofen 800 mg take 1 tablet (800 m g) by oral route 3 times per day with food Apr, Active Cipro 500 mg 1 tablet by Oral route every 12 hours for 10 day(s) Jul, Active Otogesic 5.4-1.4 % 5 drop by Otic route every 1-2 hour s for 2 day(s) PRN August, Active Ciprofloxacin 500 mg 1 tablet by Oral route every 12 h ours for 5 day(s) Dec, Active RESULTS No Results PROCEDURES No Known procedures INSTRUCTIONS MEDICATIONS ADMINISTERED No Known Medications MEDICAL (GENERAL) HISTORY Type Description Date Medical History hypertension Medical History Colposcopy with loop electro de excision of the cervix was performed 06/2012, mild squamous atypia (no definite dyplasia). Performed at [facility] Dr. Joy. Medical History Acute [...]
--- OUTSIDE RECORDS SUMMARY | 2019-11-23 05:59 | XMS REPORT ---
Author Author Liana Fuchs Organization [facility] Address [address] [place] [address] Care Team Providers Care Signs And Displays Sales Representative Name Role Phone PACHECO Fuchs Unavailable PROBLEMS Type Condition ICD9-CM Code VAK82-FM Code Onset Dates Condition S tatus SNOMED Code Problem Hematuria, unspecified type R31.9 Ac tive 19554807 Problem Abnormal renal ultrasound R93.429 Acti ve [id number] Problem Anxiety F41.9 Active 30827616 Problem Hypokalemia E87.6 Active 29038168 Problem Abnormal glucose R73.09 Active 102 113115 Problem Chronic pain due to trauma G89.21 Act juanis 517028911 Problem Neuroforaminal stenosis of spine M99.89 Active 766734034157 Problem Neck pain M54.2 Active 99266215 Problem Essential hypertension I10 Active 89119052 Problem Mixed hyperlipidemia E78.2 Active 00093192 ALLERGIES No Information ENCOUNTERS Encounter Location Date Diagnosis [place] [address] [address] [facility] [id number] [address] [place] [id number] 24 Sep, 2018 [place] [address] [address] [facility] [id number] [address] [place] [phone] Sep, [place] [address] [address] [facility] [id number] [address] [place] [id number] 18 Sep, 2018 Routine screening for STI (s exually transmitted infection) Z11.3 [place] [address] [address] [facility] [id number] [address] [place] [address] 14 Sep, 2018 Routine screening for STI (s exually transmitted infection) Z11.3 ; Well woman exam with routine gynecological exam Z01.419 and Breast cancer screening Z12.39 [place] [address] [address] [facility] [id number] [address] [place] [phone] Sep, Neuroforaminal stenosis of s pine M99.89 [facility] [address] [id number] [address] [place] [phone] August, Neuroforaminal stenosis of s pine M99.89 [facility] [address] [id number] [address] [place] [phone] August, Neuroforaminal stenosis of s pine M99.89 ; Chronic pain due to trauma G89.21 and Mixed hyperlipidemia E78.2 [facility] [address] [id number] [address] [place] [phone] Jul, Viral upper respiratory illn ess J06.9 and Acute non-recurrent frontal sinusitis J01.10 [facility] [address] [id number] [address] [place] [phone] Jul, Congestion of nasal sinus R0 9.81 [facility] [address] [id number] [address] [place] [phone] Jul, Neuroforaminal stenosis of s pine M99.89 and Essential hypertension I10 [facility] [address] [id number] [address] [place] [phone] May, Neuroforaminal stenosis of s pine M99.89 [facility] [address] [id number] [address] [place] [phone] May, [facility] [address] [id number] [address] [place] [address] May, Congestion of nasal sinus R0 9.81 [facility] [address] [id number] [address] [place] [phone] May, [facility] [address] [id number] [address] [place] [phone] Apr, Neuroforaminal stenosis of s pine M99.89 [facility] [address] [facility] [id number] [address] [place] [address] Apr, Neuroforaminal stenosis of s pine M99.89 and Chronic pain due to trauma G89.21 [facility] [address] [id number] [address] [place] [phone] Mar, UTI (urinary tract infection ) N39.0 [facility] [address] [id number] [address] [place] [phone] Mar, Vertigo R42 [facility] [address] [id number] [address] [place] [phone] Mar, Neuroforaminal stenosis of s jose M99.89 [facility] [address] [id number] [address] [place] [phone] Feb, Extensor tendon disruption M 67.89 [facility] [address] [id number] [address] [place] [phone] Feb, Neuroforaminal stenosis of ayla garcia M99.89 and High risk medication use Z79.899 [facility] [address] [id number] [address] [place] [address] Jan, Hypokalemia E87.6 [facility] [address] [id number] [address] [place] [phone] Jan, Flank pain R10.9 and Acute r ight-sided low back pain without sciatica M54.5 [facility] [address] [id number] [address] [place] [phone] Jan, Hypokalemia E87.6 [facility] [address] [id number] [address] [place] [phone] Jan, [facility] [address] [id number] [address] [place] [address] Jan, URI, acute J06.9 [facility] [address] [id number] [address] [place] [address] Jan, Neuroforaminal stenosis of ayla garcia M99.89 [facility] [address] [id number] [address] [place] [phone] 13 Dec, 2017 Lateral epicondylitis, right elbow M77.11 [place] [address] [phone] 11 Dec, 2017 Allergic rhinitis due to monica rosalina, unspecified seasonality J30.1 and Allergic conjunctivitis of both eyes H10.13 [place] [address] [address] 10 Dec, 2017 Neuroforaminal stenosis of s pine M99.89 [place] [address] [address] 06 Dec, 2017 Mixed hyperlipidemia E78.2 [place] [address] [address] 05 Dec, 2017 Abnormal glucose R73.09 ; Ab normal renal ultrasound R93.429 ; Dysuria R30.0 ; Cystitis without hematuria N30.90 ; Hypokalemia E87.6 ; Mixed hyperlipidemia E78.2 and Hematuria, unspecified type R31.9 [place] [address] [address] Nov, Hypokalemia E87.6 ; Mixed hy perlipidemia E78.2 and Hematuria, unspecified type R31.9 [place] [address] [address] Nov, [place] [address] [address] Nov, Hypokalemia E87.6 [place] [address] [address] Nov, [place] [address] [address] Nov, Abnormal renal ultrasound R9 3.429 [place] [address] [address] Nov, Abnormal renal ultrasound R9 3.429 [place] [address] [id number] [address] [place] [phone] 09 Nov, 2017 Hematuria, unspecified type R31.9 and Neuroforaminal stenosis of spine M99.89 [facility] [address] [id number] [address] [place] [phone] Nov, Dysuria R30.0 [place] [address] [id number] [address] [place] [phone] Oct, Lateral epicondylitis, right elbow M77.11 [place] [address] [id number] [address] [place] [phone] Oct, Neuroforaminal stenosis of s jose M99.89 ; Visit for TB skin test Z11.1 and Essential hypertension I10 [place] [address] [id number] [address] [place] [phone] Oct, [place] [address] [id number] [address] [place] [address] Oct, Neuroforaminal stenosis of s pine M99.89 [place] [address] [id number] [address] [place] [address] Oct, Visit for TB skin test Z11.1 [place] [address] [id number] [address] [place] [phone] 05 Oct, 2017 Cystitis without hematuria N 30.90 [place] [address] [id number] [address] [place] [address] Sep, Screening breast examination Z12.39 [place] [address] [id number] [address] [place] [address] Sep, Dysuria R30.0 and Cystitis w ithout hematuria N30.90 [place] [address] [id number] [address] [place] [address] 14 Sep, 2017 Essential hypertension I10 a nd Neuroforaminal stenosis of spine M99.89 [place] [address] [id number] [address] [place] [address] Sep, Abnormal glucose R73.09 [place] [address] [id number] [address] [place] [phone] August, Lateral epicondylitis, right elbow M77.11 [place] [address] [id number] [address] [place] [address] August, Screen for STD (sexually tra nsmitted disease) Z11.3 [place] [address] [id number] [address] [place] [phone] August, Neuroforaminal stenosis of s jose M99.89 ; Mixed hyperlipidemia E78.2 ; Elevated fasting glucose R73.01 ; Screening mammogram, encounter for Z12.31 and Encounter for well woman exam without gynecological exam Z00.00 [place] [address] [id number] [address] [place] [address] August, Neuroforaminal stenosis of s pine M99.89 [place] [address] [id number] [address] [place] [address] August, Essential hypertension I10 ; Hypokalemia E87.6 and Mixed hyperlipidemia E78.2 [place] [address] [id number] [address] [place] [phone] Jul, [place] [address] [id number] [address] [place] [address] Jul, Neuroforaminal stenosis of s pine M99.89 [place] [address] [id number] [address] [place] [phone] Jul, Lateral epicondylitis, right elbow M77.11 [place] [address] [id number] [address] [place] [phone] Jul, [place] [address] [id number] [address] [place] [address] Jun, High ankle sprain of right l ower extremity, initial encounter S93.431A [place] [address] [id number] [address] [place] [address] Jun, Essential hypertension I10 [facility] [address] [id number] [address] [place] [address] Jun, [facility] [address] [id number] [address] [place] [phone] Jun, [facility] [address] [id number] [address] [place] [address] Jun, Neuroforaminal stenosis of s pine M99.89 [facility] [address] [id number] [address] [place] [address] Jun, Pain of right upper extremit y M79.601 and Essential hypertension I10 [place] [address] [id number] [address] [place] [address] Jun, [place] [address] [address] [facility] [id number] [address] [place] [phone] Jun, Dysuria R30.0 ; Acute cystit is with hematuria N30.01 and Screen for STD (sexually transmitted disease) Z11.3 [place] [address] [id number] [address] [place] [address] May, Chronic pain due to trauma G 89.21 [place] [address] [id number] [address] [place] [address] May, Essential hypertension I10 [facility] [address] [id number] [address] [place] [address] May, Neuroforaminal stenosis of s pine M99.89 [facility] [address] [id number] [address] [place] [address] Apr, Allergic reaction, initial e ncounter T78.40XA [facility] [address] [id number] [address] [place] [address] Apr, Low back pain, unspecified b ack pain laterality, unspecified chronicity, with sciatica presence unspecified M54.5 ; Acute cystitis with hematuria N30.01 ; Neuroforaminal stenosis of spine M99.89 ; Bilateral acute serous otitis media, recurrence not specified H65.03 ; Mixed hyperlipidemia E78.2 ; Essential hypertension I10 ; Immunization counseling Z71.89 and Encounter for immunization Z23 [facility] [address] [id number] [address] [place] [phone] 08 Apr, 2017 Neck pain M54.2 [facility] [address] [id number] [address] [place] [address] 26 Mar, 2017 Neuroforaminal stenosis of s pine M99.89 [place] [address] [id number] [address] [place] [phone] Mar, Pharyngitis due to other org anism J02.8 [facility] [address] [id number] [address] [place] [address] Feb, Neuroforaminal stenosis of s pine M99.89 [facility] [address] [id number] [address] [place] [phone] 08 Feb, 2017 UTI (urinary tract infection ) N39.0 [facility] [address] [id number] [address] [place] [phone] 07 Feb, 2017 Recent urinary tract infecti on Z87.440 ; Neuroforaminal stenosis of spine M99.89 ; Neck pain M54.2 ; Chronic pain due to trauma G89.21 and Recurrent UTI N39.0 [facility] [address] [id number] [address] [place] [phone] 03 Feb, 2017 [facility] [address] [id number] [address] [place] [phone] Jan, Neuroforaminal stenosis of s pine M99.89 [facility] [address] [id number] [address] [place] [phone] 28 Dec, 2016 Neuroforaminal stenosis of s pine M99.89 [facility] [address] [id number] [address] [place] [phone] 18 Dec, 2016 Acute seasonal allergic rhin itis due to pollen J30.1 [facility] [address] [id number] [address] [place] [phone] 08 Dec, 2016 [facility] [address] [id number] [address] [place] [address] 08 Dec, 2016 Acute seasonal allergic rhin itis, unspecified trigger J30.2 ; Allergic conjunctivitis of both eyes H10.13 and Dysfunction of both eustachian tubes H69.83 [facility] [address] [id number] [address] [place] [phone] 07 Dec, 2016 [place] [address] [id number] [address] [place] [address] Dec, Nevus D22.9 [place] [address] [address] [facility] [id number] [address] [place] [phone] Nov, Chronic pain due to trauma G 89.21 and Neuroforaminal stenosis of spine M99.89 [place] [address] [id number] [address] [place] [address] Nov, Neuroforaminal stenosis of s pine M99.89 ; Essential hypertension I10 ; Mixed hyperlipidemia E78.2 ; Hypokalemia E87.6 ; Neck pain M54.2 and Nevus D22.9 [place] [address] [id number] [address] [place] [phone] Oct, Neuroforaminal stenosis of s pine M99.89 [facility] [address] [id number] [address] [place] [address] Sep, Neuroforaminal stenosis of s pine M99.89 [place] [address] [id number] [address] [place] [phone] Sep, [place] [address] [id number] [address] [place] [address] August, [facility] [address] [facility] [id number] [address] [place] [address] August, Neck pain M54.2 and Neurofor aminal stenosis of spine M99.89 [facility] [address] [id number] [address] [place] [phone] August, Routine gynecological examin ation Z01.419 and Screening breast examination Z12.39 [facility] [address] [id number] [address] [place] [address] Jul, [facility] [address] [id number] [address] [place] [address] Jul, [facility] [address] [id number] [address] [place] [phone] Jul, Neuroforaminal stenosis of s pine M99.89 [facility] [address] [id number] [address] [place] [phone] Jul, [facility] [address] [id number] [address] [place] [address] Jul, Neuroforaminal stenosis of l umbar 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 [facility] [address] [id number] [address] [place] [address] Jul, [facility] [address] [id number] [address] [place] [address] Jul, [facility] [address] [id number] [address] [place] [address] Jun, Neuroforaminal stenosis of s pine M99.89 [facility] [address] [id number] [address] [place] [address] Jun, Uterine leiomyoma, unspecifi ed location D25.9 and Allergic reaction caused by a drug, initial encounter T78.40XA [facility] [address] [id number] [address] [place] [phone] Jun, [facility] [address] [id number] [address] [place] [address] May, UTI symptoms R39.9 and Pain of right sacroiliac joint M53.3 [place] [address] [id number] [address] [place] [address] May, Neuroforaminal stenosis of s jose M99.89 [place] [address] [id number] [address] [place] [address] May, [place] [address] [address] [facility] [id number] [address] [place] [phone] May, Acute mucoid otitis media of left ear H65.112 and Acute non- recurrent maxillary sinusitis J01.00 [place] [address] [address] [facility] [id number] [address] [place] [address] May, Acute bacterial conjunctivit is of both eyes H10.33 ; Left arm pain M79.602 and Hypokalemia E87.6 [place] [address] [address] [facility] [id number] [address] [place] [address] Apr, [place] [address] [id number] [address] [place] [address] Apr, Neuroforaminal stenosis of s pine M99.89 ; Neck pain M54.2 ; Chronic pain due to trauma G89.21 ; Mixed hyperlipidemia E78.2 ; Essential hypertension I10 and Hypokalemia E87.6 [place] [address] [facility] [id number] [address] [place] [address] Mar, Oral candidiasis B37.0 ; Nathaniel roforaminal stenosis of spine M99.89 ; Neck pain M54.2 and Chronic pain due to trauma G89.21 [place] [address] [address] [facility] [id number] [address] [place] [phone] Feb, [place] [address] [facility] [id number] [address] [place] [phone] Feb, [place] [address] [address] [facility] [id number] [address] [place] [address] Feb, UTI (urinary tract infection ) N39.0 [facility] [address] [id number] [address] [place] [phone] 09 Feb, 2016 Dysuria R30.0 [facility] [address] [id number] [address] [place] [address] 08 Feb, 2016 Dysuria R30.0 [facility] [address] [id number] [address] [place] [address] Feb, Neuroforaminal stenosis of s pine M99.89 ; Neck pain M54.2 ; Essential hypertension I10 ; Chronic pain due to trauma G89.21 ; Dysuria R30.0 ; Abnormal MRI, shoulder R93.8 and Acute cystitis without hematuria N30.00 [facility] [address] [id number] [address] [place] [phone] Jan, [facility] [address] [id number] [address] [place] [phone] Jan, [facility] [address] [id number] [address] [place] [phone] Jan, [facility] [address] [id number] [address] [place] [phone] Jan, Abnormal MRI R93.8 [facility] [address] [id number] [address] [place] [phone] 29 Dec, 2015 [facility] [address] [id number] [address] [place] [phone] 15 Dec, 2015 Acute pain of left shoulder M25.512 [facility] [address] [id number] [address] [place] [phone] 09 Dec, 2015 [facility] [address] [id number] [address] [place] [phone] 08 Dec, 2015 [facility] [address] [id number] [address] [place] [address] 07 Dec, 2015 Acute pain of left shoulder M25.512 [facility] [address] [id number] [address] [place] [phone] Nov, [facility] [address] [id number] [address] [place] [id number] Nov, Neuroforaminal stenosis of s pine M99.89 ; Neck pain M54.2 ; Abnormal mammogram R92.8 ; Essential hypertension I10 and Chronic pain due to trauma G89.21 [facility] [address] [id number] [address] [place] [id number] Nov, [facility] [address] [id number] [address] [place] [phone] Oct, Acute stress disorder F43.0 [facility] [address] [id number] [address] [place] [id number] Oct, [facility] [address] [id number] [address] [place] [id number] Oct, [facility] [address] [id number] [address] [place] [id number] Oct, [facility] [address] [id number] [address] [place] [id number] Sep, [facility] [address] [id number] [address] [place] [id number] August, [facility] [address] [id number] [address] [place] [id number] Jul, Neuroforaminal stenosis of s pine M99.89 ; Neck pain M54.2 ; Abnormal mammogram R92.8 and Essential hypertension I10 [facility] [address] [id number] [address] [place] [id number] Jul, [facility] [address] [id number] [address] [place] [id number] Jul, [facility] [address] [id number] [address] [place] [id number] Jul, Abnormal mammogram R92.8 [facility] [address] [id number] [address] [place] [id number] 08 Jul, 2015 [facility] [address] [facility] [id number] [address] [place] [id number] Jul, UTI (urinary tract infection ) N39.0 [facility] [address] [facility] [id number] [address] [place] [id number] Jul, Dysuria R30.0 [facility] [address] [facility] [id number] [address] [place] [id number] Jun, [facility] [address] [facility] [id number] [address] [place] [phone] Jun, [facility] [facility] [address] [id number] [address] [place] [id number] Jun, Hypokalemia E87.6 and Hematu martina R31.9 [place] [address] [id number] [address] [place] [id number] Jun, Hypokalemia E87.6 [facility] [address] [facility] [id number] [address] [place] [id number] Jun, [facility] [address] [id number] [address] [place] [id number] Jun, Hypokalemia E87.6 [facility] [address] [id number] [address] [place] [id number] Jun, Hypokalemia E87.6 [facility] [address] [id number] [address] [place] [id number] 15 Jun, 2015 Neuroforaminal stenosis of s pine M99.89 ; Hypokalemia E87.6 ; Neck pain M54.2 ; Essential hypertension I10 ; Mixed hyperlipidemia E78.2 and Screening breast examination Z12.39 [place] [address] [facility] [id number] [address] [place] [id number] 08 Jun, 2015 Dysuria R30.0 ; UTI (urinary tract infection) N39.0 and Hematuria R31.9 [place] [address] [facility] [id number] [address] [place] [id number] May, [facility] [id number] [place] [id number] 18 May, 2015 High risk sexual behavior Z7 2.51 ; Hypokalemia E87.6 ; Neuroforaminal stenosis of spine M99.89 ; Neck pain M54.2 ; Essential hypertension I10 ; Mixed hyperlipidemia E78.2 ; STD exposure Z20.2 and Concern about STD in female without diagnosis Z71.1 [facility] [address] [facility] [id number] [address] [place] [id number] 16 May, 2015 Neuroforaminal stenosis of s pine M99.89 ; Neck pain M54.2 ; Hypokalemia E87.6 ; Essential hypertension I10 and Mixed hyperlipidemia E78.2 [facility] [address] [id number] [address] [place] [id number] May, [facility] [address] [facility] [id number] [address] [place] [phone] 08 May, 2015 High risk sexual behavior Z7 2.51 ; STD exposure Z20.2 and Concern about STD in female without diagnosis Z71.1 [facility] [address] [facility] [id number] [address] [place] [phone] May, [facility] [address] [facility] [id number] [address] [place] [address] Apr, Neuroforaminal stenosis of s pine M99.89 ; Mixed hyperlipidemia E78.2 ; Essential hypertension I10 and Hypokalemia E87.6 [facility] [address] [facility] [id number] [address] [place] [id number] Mar, [facility] [address] [facility] [id number] [address] [place] [phone] Mar, Hypokalemia E87.6 [facility] [address] [facility] [id number] [address] [place] [id number] Mar, Neuroforaminal stenosis of s pine M99.89 ; Mixed hyperlipidemia E78.2 ; Neck pain M54.2 ; Essential hypertension I10 ; Abnormal fasting glucose R73.09 ; Hypokalemia E87.6 and Constipation K59.00 [facility] [address] [facility] [id number] [address] [place] [id number] Feb, Neuroforaminal stenosis of s pine M99.89 ; Mixed hyperlipidemia E78.2 ; Neck pain M54.2 ; Essential hypertension I10 ; Abnormal fasting glucose R73.09 ; Hypokalemia E87.6 and Constipation K59.00 [facility] [address] [facility] [id number] [address] [place] [phone] Feb, Elevated fasting blood sugar R73.01 [place] [address] [facility] [id number] [address] [place] [id number] Feb, Elevated fasting blood sugar R73.01 [place] [address] [facility] [id number] [address] [place] [id number] Feb, Hair loss L65.9 [place] [address] [facility] [id number] [address] [place] [id number] Feb, Sinusitis J32.9 ; Essential hypertension I10 and Hair loss L65.9 [facility] [address] [facility] [id number] [address] [place] [phone] Jan, [facility] [address] [facility] [id number] [address] [place] [phone] Jan, Essential hypertension I10 ; Neuroforaminal stenosis of spine M99.89 ; Neck pain M54.2 ; Mixed hyperlipidemia E78.2 and Anxiety F41.9 [facility] [address] [facility] [id number] [address] [place] [id number] Jan, [facility] [address] [facility] [id number] [address] [place] [phone] Jan, Mixed hyperlipidemia E78.2 ; Essential (primary) hypertension I10 ; Strain of muscle, fascia and tendon at neck level, subsequent encounter S16.1XXD and Tension-type headache, unspecified, not intractable G44.209 [facility] [address] [id number] [address] [place] [id number] Dec, Lumbar back pain 724.2 and N euroforaminal stenosis of spine 724.00 [facility] [address] [id number] [address] [place] [phone] Nov, [facility] [address] [id number] [address] [place] [phone] Nov, Lumbar back pain 724.2 and N euroforaminal stenosis of spine 724.00 [place] [address] [facility] [id number] [address] [place] [phone] Nov, Edema 782.3 ; Lumbar back pa in 724.2 ; Essential hypertension, benign 401.1 ; Hyperlipemia 272.4 ; Neuroforaminal stenosis of spine 724.00 and Post-concussion headache 339.20 [facility] [address] [id number] [address] [place] [phone] Nov, [facility] [address] [facility] [id number] [address] [place] [phone] Nov, [facility] [address] [facility] [id number] [address] [place] [phone] Oct, Essential hypertension, sheridan gn 401.1 [facility] [address] [facility] [id number] [address] [place] [phone] Oct, Edema 782.3 ; Lumbar back pa in 724.2 ; Essential hypertension, benign 401.1 ; Hyperlipemia 272.4 ; Neuroforaminal stenosis of spine 724.00 and Post-concussion headache 339.20 [facility] [address] [facility] [id number] [address] [place] [id number] Oct, [facility] [address] [facility] [id number] [address] [place] [phone] Oct, Edema 782.3 [facility] [address] [id number] [address] [place] [phone] Oct, Lumbar back pain 724.2 [facility] [address] [id number] [address] [place] [id number] Oct, Cervicalgia 723.1 ; Lumbar b ack pain 724.2 and High risk medication use V58.69 [facility] [address] [id number] [address] [place] [phone] Sep, [facility] [address] [id number] [address] [place] [phone] Sep, Lumbar strain 847.2 [facility] [address] [facility] [id number] [address] [place] [address] August, Edema 782.3 and Eustachian t ube dysfunction 381.81 [facility] [address] [facility] [id number] [address] [place] [id number] August, [facility] [address] [id number] [address] [place] [phone] August, Eustachian tube dysfunction 381.81 [facility] [address] [id number] [address] [place] [id number] Jul, Otalgia 388.70 and Otitis me jonathon 382.9 [facility] [address] [id number] [address] [place] [id number] Jul, [facility] [address] [id number] [address] [place] [phone] Jul, [facility] [address] [id number] [address] [place] [id number] Jul, [facility] [address] [facility] [id number] [address] [place] [id number] Jul, [facility] [address] [facility] [id number] [address] [place] [phone] Jul, [facility] [address] [id number] [address] [place] [address], [place] [address] Jun, [facility] [address] [id number] [address] [place] [address], [place] [address] 27 Jun, 2014 [facility] [address] [id number] [address] [place] [address], [place] [address] Jun, [facility] [address] [id number] [address] [place] [address], [place] [address] May, 2014 [facility] [address] [id number] [address] [place] [address], [place] [address] May, 2014 [facility] [address] [id number] [address] [place] [address], [place] [address] May, 2014 [facility] [address] [id number] [address] [place] [address], [place] [address] May, 2014 [facility] [address] [id number] [address] [place] [address], [place] [address] May, 2014 [facility] [address] [id number] [address] [place] [address], [place] [address] May, [facility] [address] [id number] [address] [place] [address], [place] [address] May, [facility] [address] [id number] [address] [place] [address], [place] [address] May, [facility] [address] [id number] [address] [place] [address], [place] [address] May, [facility] [address] [id number] [address] [place] [address], [place] [address] May, [facility] [address] [id number] [address] [place] [address], [place] [address] Apr, [facility] [address] [id number] [address] [place] [address], [place] [address] Apr, [facility] [address] [id number] [address] [place] [id number] Apr, [facility] [address] [id number] [address] [place] [address], [place] [address] Apr, [facility] [address] [id number] [address] [place] [address], [place] [address] Apr, [facility] [address] [id number] [address] [place] [address], [place] [address] Apr, [facility] [address] [id number] [address] [place] [address], [place] [address] Apr, [facility] [address] [id number] [address] [place] [address], [place] [address] Apr, [facility] [address] [id number] [address] [place] [address], [place] [address] Apr, [facility] [address] [id number] [address] [place] [address], [place] [address] Apr, [facility] [address] [id number] [address] [place] [address], [place] [address] Apr, [facility] [address] [id number] [address] [place] [address], [place] [address] Apr, [facility] [address] [id number] [address] [place] [address], [place] [address] Apr, [facility] [address] [id number] [address] [place] [address], [place] [address] Apr, [facility] [address] [id number] [address] [place] [address], [place] [address] Apr, [facility] [address] [id number] [address] [place] [address], [place] [address] Mar, [facility] [address] [id number] [address] [place] [address], [place] [address] Mar, [facility] [address] [id number] [address] [place] [address], [place] [address] Mar, [facility] [address] [id number] [address] [place] [address], [place] [address] Mar, [facility] [address] [id number] [address] [place] [address], [place] [address] Feb, [facility] [address] [id number] [address] [place] [address], [place] [address] Feb, [facility] [address] [id number] [address] [place] [address], [place] [address] Feb, [facility] [address] [id number] [address] [place] [address], [place] [address] Feb, [facility] [address] [id number] [address] [place] [address], [place] [address] Jan, [facility] [address] [id number] [address] [place] [address], [place] [address] Jan, [facility] [address] [id number] [address] [place] [address], [place] [address] Jan, [facility] [address] [id number] [address] [place] [address], [place] [address] Jan, [facility] [address] [id number] [address] [place] [address], [place] [address] Jan, [facility] [address] [id number] [address] [place] [address], [place] [address] Jan, [facility] [address] [id number] [address] [place] [address], [place] [address] Jan, [facility] [address] [id number] [address] [place] [address], [place] [address] Jan, [facility] [address] [id number] [address] [place] [address], [place] [address] Dec, [facility] [address] [id number] [address] [place] [address], [place] [address] Dec, [facility] [address] [id number] [address] [place] [address], [place] [address] Dec, [facility] [address] [id number] [address] [place] [address], [place] [address] Dec, 2013 [facility] [address] [id number] [address] [place] [address], [place] [address] Oct, 2013 [facility] [address] [id number] [address] [place] [address], [place] [address] Oct, 2013 [facility] [address] [id number] [address] [place] [address], [place] [address] Oct, 2013 [facility] [address] [id number] [address] [place] [address], [place] [address] Oct, 2013 [facility] [address] [id number] [address] [place] [address], [place] [address] Oct, 2013 [facility] [address] [id number] [address] [place] [address], [place] [address] Oct, 2013 [facility] [address] [id number] [address] [place] [address], [place] [address] Oct, 2013 [facility] [address] [id number] [address] [place] [address], [place] [address] Oct, [facility] [address] [id number] [address] [place] [address], [place] [address] Sep, [facility] [address] [id number] [address] [place] [address], [place] [address] Sep, [facility] [address] [id number] [address] [place] [address], [place] [address] Sep, [facility] [address] [id number] [address] [place] [address], [place] [address] Sep, [facility] [address] [id number] [address] [place] [address], [place] [address] Sep, [facility] [address] [id number] [address] [place] [address], [place] [address] Sep, [facility] [address] [id number] [address] [place] [address], [place] [address] Sep, [facility] [address] [id number] [address] [place] [address], [place] [address] Sep, [facility] [address] [id number] [address] [place] [address], [place] [address] Sep, [facility] [address] [id number] [address] [place] [address], [place] [address] Sep, [facility] [address] [id number] [address] [place] [address], [place] [address] August, [facility] [address] [id number] [address] [place] [address], [place] [address] August, [facility] [address] [id number] [address] [place] [address], [place] [address] August, [facility] [address] [id number] [address] [place] [address], [place] [address] August, [facility] [address] [id number] [address] [place] [address], [place] [address] August, [facility] [address] [id number] [address] [place] [address], [place] [address] August, [facility] [address] [id number] [address] [place] [address], [place] [address] August, [facility] [address] [id number] [address] [place] [address], [place] [address] August, [facility] [address] [id number] [address] [place] [address], [place] [address] August, [facility] [address] [id number] [address] [place] [address], [place] [address] August, [facility] [address] [id number] [address] [place] [address], [place] [address] August, [facility] [address] [id number] [address] [place] [address], [place] [address] August, [facility] [address] [id number] [address] [place] [address], [place] [address] Jul, [facility] [address] [id number] [facility] [address] Jul, [facility] [address] [id number] [address] [place] [address], [place] [address] Jul, [facility] [address] [id number] [address] [place] [address], [place] [address] Jul, [facility] [address] [id number] [address] [place] [address], [place] [address] Jul, [facility] [address] [id number] [address] [place] [address], [place] [address] Jul, [facility] [address] [id number] [address] [place] [address], [place] [address] Jun, [facility] [address] [id number] [address] [place] [address], [place] [address] Jun, [facility] [address] [id number] [address] [place] [address], [place] [address] May, [facility] [address] [id number] [address] [place] [address], [place] [address] May, [facility] [address] [id number] [address] [place] [address], [place] [address] Apr, [facility] [address] [id number] [address] [place] [address], [place] [address] Apr, [facility] [address] [id number] [address] [place] [address], [place] [address] Apr, [facility] [address] [id number] [address] [place] [address], [place] [address] Apr, [facility] [address] [id number] [address] [place] [address], [place] [address] Apr, [facility] [address] [id number] [address] [place], [place] [address] [address] Apr, [facility] [address] [id number] [address] [place] [address], [place] [address] Apr, [facility] [address] [id number] [address] [place] [address], [place] [address] Apr, [facility] [address] [id number] [address] [place] [address], [place] [address] Apr, [facility] [address] [id number] [address] [place] [address], [place] [address] Apr, [facility] [address] [id number] [address] [place] [address], [place] [address] Apr, [facility] [address] [id number] [address] [place] [address], [place] [address] Apr, [facility] [address] [id number] [address] [place] [address], [place] [address] Apr, [facility] [address] [id number] [address] [place] [address], [place] [id number] Mar, [facility] [address] [id number] [address] [place] [address], [place] [address] Mar, [facility] [address] [id number] [address] [place] [address], [place] [address] Mar, [facility] [address] [id number] [address] [place] [address], [place] [address] Mar, [facility] [address] [id number] [address] [place] [id number] Feb, [facility] [address] [id number] [address] [place] [address], [place] [address] Feb, [facility] [address] [id number] [address] [place] [address], [place] [address] Feb, [facility] [address] [id number] [address] [place] [address], [place] [address] Feb, [facility] [address] [id number] [address] [place] [address], [place] [address] 14 Jan, 2013 [facility] [address] [id number] [address] [place] [address], [place] [address] 14 Jan, 2013 [facility] [address] [id number] [address] [place] [address], [place] [address] 11 Jan, 2013 [facility] [address] [id number] [address] [place] [address], [place] [address] 11 Jan, 2013 [facility] [address] [id number] [address] [place] [address], [place] [address] 10 Jan, 2012 [facility] [address] [id number] [address] [place] [address], [place] [address] 10 Jan, 2013 [facility] [address] [id number] [address] [place] [address], [place] [address] 09 Jan, 2013 [facility] [address] [id number] [address] [place] [address], [place] [address] 09 Jan, 2013 [facility] [address] [id number] [address] [place] [address], [place] [address] Jan, [facility] [address] [id number] [address] [place] [address], [place] [address] 26 Dec, 2012 [facility] [address] [id number] [address] [place] [address], [place] [id number] 16 Dec, 2012 [facility] [address] [id number] [address] [place] [address], [place] [address] 16 Dec, 2012 [facility] [address] [id number] [address] [place] [address], [place] [address] 13 Dec, 2012 [facility] [address] [id number] [address] [place] [address], [place] [address] 17 Nov, 2012 [facility] [address] [id number] [address] [place] [address], [place] [address] 17 Nov, 2012 [facility] [address] [id number] [address] [place] [address], [place] [address] Nov, [facility] [address] [id number] [address] [place] [address], [place] [address] Nov, [facility] [address] [id number] [address] [place] [address], [place] [address] Oct, [facility] [address] [id number] [address] [place] [address], [place] [address] Sep, [facility] [address] [id number] [address] [place] [address], [place] [address] August, [facility] [address] [id number] [address] [place] [address], [place] [address] August, [facility] [address] [id number] [address] [place] [address], [place] [address] August, [facility] [address] [id number] [address] [place] [address], [place] [address] August, [facility] [address] [id number] [address] [place] [address], [place] [address] August, [facility] [address] [id number] [address] [place] [address], [place] [address] August, [facility] [address] [id number] [address] [place] [address], [place] [address] August, [facility] [address] [id number] [address] [place] [address], [place] [address] August, [facility] [address] [id number] [address] [place] [address], [place] [address] August, [facility] [address] [id number] [address] [place] [address], [place] [address] August, [facility] [address] [id number] [address] [place] [address], [place] [address] August, [facility] [address] [id number] [address] [place] [address], [place] [address] August, [facility] [address] [id number] [address] [place] [address], [place] [address] Jul, [facility] [address] [id number] [address] [place] [address], [place] [address] Jul, [facility] [address] [id number] [address] [place] [address], [place] [address] Jul, [facility] [address] [id number] [address] [place] [address], [place] [address] Jul, [facility] [address] [id number] [address] [place] [address], [place] [address] Jul, [facility] [address] [id number] [address] [place] [address], [place] [address] Jul, [facility] [address] [id number] [address] [place] [address], [place] [address] Jul, [facility] [address] [id number] [address] [place] [address], [place] [address] Jul, [facility] [address] [id number] [address] [place] [address], [place] [address] Jul, [facility] [address] [id number] [address] [place] [address], [place] [address] Jul, [facility] [address] [id number] [address] [place] [address], [place] [address] Jul, [facility] [address] [id number] [address] [place] [address], [place] [address] Jun, [facility] [address] [id number] [address] [place] [address], [place] [address] Jun, [facility] [address] [id number] [address] [place] [address], [place] [address] Jun, [facility] [address] [id number] [address] [place] [address], [place] [address] Jun, [facility] [address] [id number] [address] [place] [address], [place] [address] May, [facility] [address] [id number] [address] [place] [address], [place] [address] 14 May, 2012 [facility] [address] [id number] [address] [place] [address], [place] [address] 05 May, 2012 [facility] [address] [id number] [address] [place] [address], [place] [address] 04 May, 2012 [facility] [address] [id number] [address] [place] [address], [place] [address] 04 May, 2012 [facility] [address] [id number] [address] [place] [address], [place] [address] May, [facility] [address] [id number] [address] [place] [address], [place] [address] Apr, [facility] [address] [id number] [address] [place] [address], [place] [address] Apr, [facility] [address] [id number] [address] [place] [address], [place] [address] 30 Apr, 2012 [facility] [address] [id number] [address] [place] [address], [place] [address] Apr, [facility] [address] [id number] [address] [place] [address], [place] [address] 15 Mar, 2012 [facility] [address] [id number] [address] [place] [address], [place] [address] 14 Mar, 2012 [facility] [address] [id number] [address] [place] [address], [place] [address] 14 Mar, 2012 [facility] [address] [id number] [address] [place] [address], [place] [address] 14 Mar, 2012 [facility] [address] [id number] [address] [place] [address], [place] [address] 14 Mar, 2012 [facility] [address] [id number] [address] [place] [address], [place] [address] 06 Mar, 2012 [facility] [address] [id number] [address] [place] [address], [place] [address] Mar, [facility] [address] [id number] [address] [place] [address], [place] [address] Feb, [facility] [address] [id number] [address] [place] [address], [place] [address] Feb, [facility] [address] [id number] [address] [place] [address], [place] [address] Feb, [facility] [address] [id number] [address] [place] [address], [place] [address] Feb, [facility] [address] [id number] [address] [place] [address], [place] [address] Jan, [facility] [address] [id number] [address] [place] [address], [place] [address] Jan, [facility] [address] [id number] [address] [place] [address], [place] [address] Jan, [facility] [address] [id number] [address] [place] [address], [place] [address] Jan, [facility] [address] [id number] [address] [place] [address], [place] [address] Jan, [facility] [address] [id number] [address] [place] [address], [place] [address] Jan, [facility] [address] [id number] [address] [place] [address], [place] [address] Dec, [facility] [address] [id number] [address] [place] [address] Dec, [facility] [address] [id number] [address] [place] [address], [place] [address] Nov, [facility] [address] [id number] [address] [place] [address], [place] [address] Sep, [facility] [address] [id number] [address] [place] [address], [place] [address] August, [facility] [address] [id number] [address] [place] [address], [place] [address] August, [facility] [address] [id number] [address] [place] [address], [place] [address] August, [facility] [address] [id number] [address] [place] [address], [place] [address] August, [facility] [address] [id number] [address] [place] [address], [place] [address] August, [facility] [address] [id number] [address] [place] [address], [place] [address] Jun, [facility] [address] [id number] [address] [place] [address], [place] [address] Jun, [facility] [address] [id number] [address] [place] [address], [place] [address] Apr, [facility] [address] [id number] [address] [place] [address], [place] [address] Apr, [facility] [address] [id number] [address] [place] [address], [place] [address] Mar, [facility] [address] [id number] [address] [place] [address], [place] [address] 22 Feb, 2011 [facility] [address] [id number] [address] [place] [address], [place] [address] 14 Feb, 2011 [facility] [address] [id number] [address] [place] [address], [place] [address] 14 Feb, 2011 [facility] [address] [id number] [address] [place] [address], [place] [address] 17 Jan, 2011 [facility] [address] [id number] [address] [place] [address], [place] [address] 15 Jan, 2011 [facility] [address] [id number] [address] [place] [address], [place] [address] 15 Jan, 2011 [facility] [address] [id number] [address] [place] [address], [place] [address] 14 Jan, 2011 [facility] [address] [facility] [id number] [address] [place] [id number] 15 May, 2010 [facility] [address] [facility] [id number] [address] [place] [id number] Mar, [facility] [address] [facility] [id number] [address] [place] [id number] Oct, [facility] [address] [facility] [id number] [address] [place] [id number] Sep, [facility] [address] [facility] [id number] [address] [place] [id number] Mar, [facility] [address] [facility] [id number] [address] [place] [id number] Jan, [facility] [address] [facility] [id number] [address] [place] [id number] Jan, [facility] [address] [facility] [id number] [address] [place] [id number] May, IMMUNIZATIONS No Known Immunizations SOCIAL HISTORY [...]
--- OUTSIDE RECORDS SUMMARY | 2019-11-23 06:00 | XMS REPORT ---
Author Author Liana Coe Doctor Organization [facility] Address Unknown Phone Unavailable Care Team Providers Care Manager Field Services Name Role Phone Migration, Doctor Unavailable Unavailable PROBLEMS Type Condition ICD9-CM Code HXP85-KS Code Onset Dates Condition S tatus SNOMED Code Problem Hematuria, unspecified type R31.9 Ac tive 19802785 Problem Abnormal renal ultrasound R93.429 Acti ve [id number] Problem Anxiety F41.9 Active 03612380 Problem Hypokalemia E87.6 Active 76533132 Problem Abnormal glucose R73.09 Active 102 734187 Problem Chronic pain due to trauma G89.21 Act juanis [id number] Problem Neuroforaminal stenosis of spine M99.89 Active [id number] Problem Neck pain M54.2 Active 23424898 Problem Essential hypertension I10 Active 58145356 Problem Mixed hyperlipidemia E78.2 Active 94829246 ALLERGIES No Information ENCOUNTERS Encounter Location Date Diagnosis [place] [address] [address] 14 Sep, 2018 [place] [address] [address] 10 Aug, 2018 Neuroforaminal stenosis of s pine M99.89 [place] [address] [address] 07 Aug, 2018 Neuroforaminal stenosis of s pine M99.89 ; Chronic pain due to trauma G89.21 and Mixed hyperlipidemia E78.2 [place] [address] [place] [id number] [address] [place] [address] 16 Jul, 2018 Viral upper respiratory illn ess J06.9 and Acute non-recurrent frontal sinusitis J01.10 [place] [address] [place] [id number] [place] [id number] 15 Jul, 2018 Congestion of nasal sinus R0 9.81 [place] [address] [id number] [address] [place] [address] Jul, Neuroforaminal stenosis of s pine M99.89 and Essential hypertension I10 [facility] [address] [id number] [address] [place] [address] May, Neuroforaminal stenosis of s pine M99.89 [facility] [address] [id number] [address] [place] [address] May, [facility] [address] [id number] [address] [place] [address] May, Congestion of nasal sinus R0 9.81 [facility] [address] [facility] [id number] [address] [place] [phone] May, [facility] [address] [facility] [id number] [address] [place] [address] Apr, Neuroforaminal stenosis of s pine M99.89 [place] [address] [facility] [id number] [address] [place] [address] Apr, Neuroforaminal stenosis of s pine M99.89 and Chronic pain due to trauma G89.21 [place] [address] [facility] [id number] [address] [place] [address] Mar, UTI (urinary tract infection ) N39.0 [facility] [address] [facility] [id number] [address] [place] [address] Mar, Vertigo R42 [facility] [address] [facility] [id number] [address] [place] [address] Mar, Neuroforaminal stenosis of s pine M99.89 [facility] [address] [facility] [id number] [address] [place] [address] Feb, Extensor tendon disruption M 67.89 [facility] [address] [facility] [id number] [address] [place] [address] Feb, Neuroforaminal stenosis of s pine M99.89 and High risk medication use Z79.899 [place] [address] [place] [id number] [place] [address] Jan, Hypokalemia E87.6 [place] [address] [place] [id number] [place] [phone] Jan, Flank pain R10.9 and Acute r ight-sided low back pain without sciatica M54.5 [place] [address] [place] [id number] [place] [address] Jan, Hypokalemia E87.6 [place] [address] [place] [id number] [place] [address] Jan, [place] [address] [address] Jan, URI, acute J06.9 [place] [address] [address] Jan, Neuroforaminal stenosis of s pine M99.89 [place] [address] [address] 13 Dec, 2017 Lateral epicondylitis, right elbow M77.11 [place] [address] [address] 11 Dec, 2017 Allergic rhinitis due to monica rosalina, unspecified seasonality J30.1 and Allergic conjunctivitis of both eyes H10.13 [place] [address] [address] 10 Dec, 2017 Neuroforaminal stenosis of s pine M99.89 [place] [address] [address] 06 Dec, 2017 Mixed hyperlipidemia E78.2 [place] [address] [place] [id number] [place] [address] 05 Dec, 2017 Abnormal glucose R73.09 ; Ab normal renal ultrasound R93.429 ; Dysuria R30.0 ; Cystitis without hematuria N30.90 ; Hypokalemia E87.6 ; Mixed hyperlipidemia E78.2 and Hematuria, unspecified type R31.9 [place] [address] [facility] [id number] [address] [place] [address] Nov, Hypokalemia E87.6 ; Mixed hy perlipidemia E78.2 and Hematuria, unspecified type R31.9 [place] [address] [facility] [id number] [address] [place] [address] Nov, [place] [address] [id number] [address] [place] [address] Nov, Hypokalemia E87.6 [place] [address] [facility] [id number] [address] [place] [address] Nov, [place] [address] [place] [id number] [address] [place] [address] Nov, Abnormal renal ultrasound R9 3.429 [place] [address] [place] [id number] [address] [place] [address] Nov, Abnormal renal ultrasound R9 3.429 [place] [address] [place] [id number] [address] [place] [address] Nov, Hematuria, unspecified type R31.9 and Neuroforaminal stenosis of spine M99.89 [place] [address] [place] [id number] [address] [place] [address] Nov, Dysuria R30.0 [place] [address] [place] [id number] [address] [place] [address] Oct, Lateral epicondylitis, right elbow M77.11 [place] [address] [place] [id number] [address] [place] [address] Oct, Neuroforaminal stenosis of s pine M99.89 ; Visit for TB skin test Z11.1 and Essential hypertension I10 [place] [address] [place] [id number] [address] [place] [address] Oct, [place] [address] [id number] [address] [place] [address] 12 Oct, 2017 Neuroforaminal stenosis of s pine M99.89 [place] [address] [id number] [address] [place] [address] 10 Oct, 2017 Visit for TB skin test Z11.1 [place] [address] [id number] [address] [place] [id number] 05 Oct, 2017 Cystitis without hematuria N 30.90 [place] [address] [id number] [address] [place] [address] 28 Sep, 2017 Screening breast examination Z12.39 [place] [address] [facility] [id number] [address] [place] [address] 26 Sep, 2017 Dysuria R30.0 and Cystitis w ithout hematuria N30.90 [place] [address] [facility] [id number] [address] [place] [address] 14 Sep, 2017 Essential hypertension I10 a nd Neuroforaminal stenosis of spine M99.89 [place] [address] [id number] [address] [place] [address] 04 Sep, 2017 Abnormal glucose R73.09 [place] [address] [facility] [id number] [address] [place] [address] August, Lateral epicondylitis, right elbow M77.11 [place] [address] [facility] [id number] [address] [place] [address] August, Screen for STD (sexually tra nsmitted disease) Z11.3 [place] [address] [id number] [address] [place] [address] August, Neuroforaminal stenosis of s pine M99.89 ; Mixed hyperlipidemia E78.2 ; Elevated fasting glucose R73.01 ; Screening mammogram, encounter for Z12.31 and Encounter for well woman exam without gynecological exam Z00.00 [place] [address] [facility] [id number] [address] [place] [address] August, Neuroforaminal stenosis of s jose M99.89 [facility] [address] [id number] [address] [place] [address] August, Essential hypertension I10 ; Hypokalemia E87.6 and Mixed hyperlipidemia E78.2 [facility] [address] [id number] [address] [place] [address] Jul, [facility] [address] [id number] [address] [place] [address] Jul, Neuroforaminal stenosis of s jose M99.89 [facility] [address] [id number] [address] [place] [address] Jul, Lateral epicondylitis, right elbow M77.11 [facility] [address] [id number] [address] [place] [address] Jul, [facility] [address] [id number] [address] [place] [address] Jun, High ankle sprain of right l ower extremity, initial encounter S93.431A [facility] [address] [id number] [address] [place] [address] Jun, Essential hypertension I10 [facility] [address] [id number] [address] [place] [id number] Jun, [facility] [address] [id number] [address] [place] [id number] Jun, [facility] [address] [id number] [address] [place] [address] Jun, Neuroforaminal stenosis of s jose M99.89 [facility] [address] [id number] [address] [place] [address] Jun, Pain of right upper extremit y M79.601 and Essential hypertension I10 [facility] [address] [id number] [address] [place] [address] Jun, [facility] [address] [place] [id number] [address] [place] [address] Jun, Dysuria R30.0 ; Acute cystit is with hematuria N30.01 and Screen for STD (sexually transmitted disease) Z11.3 [place] [id number] [place] [address] May, Chronic pain due to trauma G 89.21 [place] [address] [address] May, Essential hypertension I10 [address] [address] May, Neuroforaminal stenosis of s jose M99.[address] [address] Apr, Allergic reaction, initial e ncounter T78.40XA [address] [address] Apr, Low back pain, unspecified b ack pain laterality, unspecified chronicity, with sciatica presence unspecified M54.5 ; Acute cystitis with hematuria N30.01 ; Neuroforaminal stenosis of spine M99.89 ; Bilateral acute serous otitis media, recurrence not specified H65.03 ; Mixed hyperlipidemia E78.2 ; Essential hypertension I10 ; Immunization counseling Z71.89 and Encounter for immunization Z23 [place] [id number] [address] [place] [address] Apr, Neck pain M54.[address] [address] Mar, Neuroforaminal stenosis of s pine M99.89 [place] [address] [address] Mar, Pharyngitis due to other org anism J02.8 [place] [id number] [address] [place] [address] Feb, Neuroforaminal stenosis of s pine M99.89 [facility] [address] [id number] [address] [place] [address] Feb, UTI (urinary tract infection ) N39.0 [facility] [address] [id number] [address] [place] [address] Feb, Recent urinary tract infecti on Z87.440 ; Neuroforaminal stenosis of spine M99.89 ; Neck pain M54.2 ; Chronic pain due to trauma G89.21 and Recurrent UTI N39.0 [facility] [address] [id number] [address] [place] [address] Feb, [facility] [address] [id number] [address] [place] [address] Jan, Neuroforaminal stenosis of s pine M99.89 [facility] [address] [id number] [address] [place] [address] Dec, Neuroforaminal stenosis of s pine M99.89 [facility] [address] [id number] [address] [place] [address] Dec, Acute seasonal allergic rhin itis due to pollen J30.1 [facility] [address] [id number] [address] [place] [address] Dec, [facility] [address] [id number] [address] [place] [address] Dec, Acute seasonal allergic rhin itis, unspecified trigger J30.2 ; Allergic conjunctivitis of both eyes H10.13 and Dysfunction of both eustachian tubes H69.83 [facility] [address] [id number] [address] [place] [address] Dec, [facility] [address] [id number] [address] [place] [address] Dec, Nevus D22.9 [facility] [address] [id number] [address] [place] [address] Nov, Chronic pain due to trauma G 89.21 and Neuroforaminal stenosis of spine M99.89 [facility] [address] [id number] [address] [place] [address] Nov, Neuroforaminal stenosis of s pine M99.89 ; Essential hypertension I10 ; Mixed hyperlipidemia E78.2 ; Hypokalemia E87.6 ; Neck pain M54.2 and Nevus D22.9 [facility] [address] [id number] [address] [place] [address] Oct, Neuroforaminal stenosis of s pine M99.89 [facility] [address] [id number] [address] [place] [address] Sep, Neuroforaminal stenosis of s pine M99.89 [facility] [address] [id number] [address] [place] [address] Sep, [facility] [address] [id number] [address] [place] [address] August, [facility] [address] [id number] [address] [place] [address] August, Neck pain M54.2 and Neurofor aminal stenosis of spine M99.89 [facility] [address] [id number] [address] [place] [address] August, Routine gynecological examin ation Z01.419 and Screening breast examination Z12.39 [facility] [address] [id number] [address] [place] [address] Jul, [facility] [address] [id number] [address] [place] [address] Jul, [facility] [address] [facility] [id number] [address] [place] [address] Jul, Neuroforaminal stenosis of s pine M99.89 [facility] [address] [id number] [address] [place] [address] Jul, [place] [id number] [facility] [id number] [address] [place] [address] Jul, Neuroforaminal stenosis of l umbar 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 [place] [address] [facility] [id number] [address] [place] [address] Jul, [place] [address] [facility] [id number] [address] [place] [address] Jul, [place] [address] [facility] [id number] [address] [place] [address] Jun, Neuroforaminal stenosis of s jose M99.89 [place] [address] [place] [id number] [address] [place] [address] Jun, Uterine leiomyoma, unspecifi ed location D25.9 and Allergic reaction caused by a drug, initial encounter T78.40XA [place] [address] [place] [id number] [address] [place] [address] Jun, [place] [address] [facility] [id number] [address] [place] [address] May, UTI symptoms R39.9 and Pain of right sacroiliac joint M53.3 [place] [address] [place] [id number] [place] [address] May, Neuroforaminal stenosis of ayla garcia M99.89 [place] [id number] [place] [address] May, [place] [address] [facility] [id number] [address] [place] [address] May, Acute mucoid otitis media of left ear H65.112 and Acute non- recurrent maxillary sinusitis J01.00 [place] [address] [place] [id number] [address] [place] [address] May, Acute bacterial conjunctivit is of both eyes H10.33 ; Left arm pain M79.602 and Hypokalemia E87.6 [place] [address] [place] [id number] [address] [place] [address] Apr, [place] [address] [place] [id number] [address] [place] [address] Apr, Neuroforaminal stenosis of s pine M99.89 ; Neck pain M54.2 ; Chronic pain due to trauma G89.21 ; Mixed hyperlipidemia E78.2 ; Essential hypertension I10 and Hypokalemia E87.6 [place] [address] [place] [id number] [address] [place] [address] Mar, Oral candidiasis B37.0 ; Nathaniel roforaminal stenosis of spine M99.89 ; Neck pain M54.2 and Chronic pain due to trauma G89.21 [place] [address] [place] [id number] [address] [place] [address] Feb, [place] [address] [place] [id number] [address] [place] [address] Feb, [place] [address] [place] [id number] [address] [place] [address] Feb, UTI (urinary tract infection ) N39.0 [place] [address] [place] [id number] [address] [place] [address] Feb, Dysuria R30.0 [place] [address] [place] [id number] [address] [place] [address] Feb, Dysuria R30.0 [place] [address] [place] [id number] [address] [place] [address] 02 Feb, 2016 Neuroforaminal stenosis of s pine M99.89 ; Neck pain M54.2 ; Essential hypertension I10 ; Chronic pain due to trauma G89.21 ; Dysuria R30.0 ; Abnormal MRI, shoulder R93.8 and Acute cystitis without hematuria N30.00 [place] [address] [place] [id number] [address] [place] [address] Jan, [place] [address] [place] [id number] [address] [place] [address] Jan, [facility] [address] [id number] [address] [place] [id number] Jan, [facility] [address] [id number] [address] [place] [address] Jan, Abnormal MRI R93.8 [facility] [address] [id number] [address] [place] [id number] 29 Dec, 2015 [facility] [address] [id number] [address] [place] [address] 15 Dec, 2015 Acute pain of left shoulder M25.512 [facility] [address] [id number] [address] [place] [address] 09 Dec, 2015 [facility] [address] [id number] [address] [place] [id number] 08 Dec, 2015 [facility] [address] [id number] [address] [place] [id number] 07 Dec, 2015 Acute pain of left shoulder M25.512 [facility] [address] [id number] [address] [place] [phone] Nov, [facility] [address] [id number] [address] [place] [id number] 16 Nov, 2015 Neuroforaminal stenosis of s pine M99.89 ; Neck pain M54.2 ; Abnormal mammogram R92.8 ; Essential hypertension I10 and Chronic pain due to trauma G89.21 [facility] [address] [id number] [address] [place] [address] Nov, [facility] [address] [id number] [address] [place] [id number] Oct, Acute stress disorder F43.0 [facility] [address] [id number] [address] [place] [id number] Oct, [facility] [address] [facility] [id number] [address] [place] [address] Oct, [facility] [address] [id number] [address] [place] [id number] 05 Oct, 2015 [facility] [address] [id number] [address] [place] [id number] Sep, [facility] [address] [id number] [address] [place] [address] August, [facility] [address] [id number] [address] [place] [id number] Jul, Neuroforaminal stenosis of s pine M99.89 ; Neck pain M54.2 ; Abnormal mammogram R92.8 and Essential hypertension I10 [facility] [address] [id number] [address] [place] [id number] Jul, [facility] [address] [facility] [id number] [address] [place] [id number] Jul, [facility] [address] [id number] [address] [place] [id number] Jul, Abnormal mammogram R92.8 [facility] [address] [id number] [address] [place] [id number] Jul, [facility] [address] [id number] [address] [place] [id number] Jul, UTI (urinary tract infection ) N39.0 [facility] [address] [facility] [id number] [address] [place] [id number] Jul, Dysuria R30.0 [facility] [address] [id number] [address] [place] [id number] Jun, [facility] [address] [id number] [address] [place] [id number] Jun, [facility] [address] [id number] [address] [place] [id number] Jun, Hypokalemia E87.6 and Hematu martina R31.9 [facility] [address] [id number] Jun, Hypokalemia E87.6 [place] [address] [id number] Jun, [place] [address] [id number] Jun, Hypokalemia E87.6 [place] [address] [id number] Jun, Hypokalemia E87.6 [place] [address] [id number] Jun, Neuroforaminal stenosis of s pine M99.89 ; Hypokalemia E87.6 ; Neck pain M54.2 ; Essential hypertension I10 ; Mixed hyperlipidemia E78.2 and Screening breast examination Z12.[address] [id number] Jun, Dysuria R30.0 ; UTI (urinary tract infection) N39.0 and Hematuria R31.[address] [id number] May, [address] [id number] May, High risk sexual behavior Z7 2.51 ; Hypokalemia E87.6 ; Neuroforaminal stenosis of spine M99.89 ; Neck pain M54.2 ; Essential hypertension I10 ; Mixed hyperlipidemia E78.2 ; STD exposure Z20.2 and Concern about STD in female without diagnosis Z71.[address] [address] 16 May, 2015 Neuroforaminal stenosis of s pine M99.89 ; Neck pain M54.2 ; Hypokalemia E87.6 ; Essential hypertension I10 and Mixed hyperlipidemia E78.[address] [place] [address] 11 May, 2015 [facility] [address] [address] 08 May, 2015 High risk sexual behavior Z7 2.51 ; STD exposure Z20.2 and Concern about STD in female without diagnosis Z71.1 [place] [address] [address] May, [place] [address] [address] Apr, Neuroforaminal stenosis of s pine M99.89 ; Mixed hyperlipidemia E78.2 ; Essential hypertension I10 and Hypokalemia E87.6 [place] [address] [address] Mar, [place] [address] [address] Mar, Hypokalemia E87.6 [place] [address] [address] Mar, Neuroforaminal stenosis of s pine M99.89 ; Mixed hyperlipidemia E78.2 ; Neck pain M54.2 ; Essential hypertension I10 ; Abnormal fasting glucose R73.09 ; Hypokalemia E87.6 and Constipation K59.00 [place] [address] [address] Feb, Neuroforaminal stenosis of s pine M99.89 ; Mixed hyperlipidemia E78.2 ; Neck pain M54.2 ; Essential hypertension I10 ; Abnormal fasting glucose R73.09 ; Hypokalemia E87.6 and Constipation K59.00 [place] [address] [address] Feb, Elevated fasting blood sugar R73.01 [place] [address] [address] Feb, Elevated fasting blood sugar R73.01 [place] [address] [id number] [address] [place] [address] Feb, Hair loss L65.9 [place] [address] [address] [facility] [id number] [address] [place] [address] Feb, Sinusitis J32.9 ; Essential hypertension I10 and Hair loss L65.9 [place] [address] [address] [facility] [id number] [address] [place] [address] Jan, [place] [address] [id number] [address] [place] [address] Jan, Essential hypertension I10 ; Neuroforaminal stenosis of spine M99.89 ; Neck pain M54.2 ; Mixed hyperlipidemia E78.2 and Anxiety F41.9 [place] [address] [address] [facility] [id number] [address] [place] [address] Jan, [place] [address] [address] [place] [id number] [place] [address] Jan, Mixed hyperlipidemia E78.2 ; Essential (primary) hypertension I10 ; Strain of muscle, fascia and tendon at neck level, subsequent encounter S16.1XXD and Tension-type headache, unspecified, not intractable G44.209 [place] [address] [address] [facility] [id number] [address] [place] [address] Dec, Lumbar back pain 724.2 and N euroforaminal stenosis of spine 724.00 [place] [address] [id number] [address] [place] [address] Nov, [place] [address] [id number] [address] [place] [address] Nov, Lumbar back pain 724.2 and N euroforaminal stenosis of spine 724.00 [place] [address] [address] [facility] [id number] [address] [place] [address] Nov, Edema 782.3 ; Lumbar back pa in 724.2 ; Essential hypertension, benign 401.1 ; Hyperlipemia 272.4 ; Neuroforaminal stenosis of spine 724.00 and Post-concussion headache 339.20 [facility] [address] [id number] [address] [place] [address] Nov, [facility] [address] [id number] [address] [place] [address] Nov, [facility] [address] [id number] [address] [place] [address] Oct, Essential hypertension, sheridan gn 401.1 [facility] [address] [id number] [address] [place] [address] Oct, Edema 782.3 ; Lumbar back pa in 724.2 ; Essential hypertension, benign 401.1 ; Hyperlipemia 272.4 ; Neuroforaminal stenosis of spine 724.00 and Post-concussion headache 339.20 [facility] [address] [id number] [address] [place] [address] Oct, [facility] [address] [id number] [address] [place] [address] Oct, Edema 782.3 [facility] [address] [facility] [id number] [address] [place] [address] Oct, Lumbar back pain 724.2 [place] [address] [address] [facility] [id number] [address] [place] [address] Oct, Cervicalgia 723.1 ; Lumbar b ack pain 724.2 and High risk medication use V58.69 [facility] [address] [id number] [address] [place] [address] Sep, [facility] [address] [id number] [address] [place] [address] Sep, Lumbar strain 847.2 [facility] [address] [facility] [id number] [address] [place] [address] August, Edema 782.3 and Eustachian t ube dysfunction 381.81 [facility] [address] [id number] [address] [place] [address] August, [facility] [address] [id number] [address] [place] [address] August, Eustachian tube dysfunction 381.81 [facility] [address] [id number] [address] [place] [address] Jul, Otalgia 388.70 and Otitis me jonathon 382.9 [facility] [address] [id number] [address] [place] [address] Jul, [facility] [address] [id number] [address] [place] [address] Jul, [facility] [address] [id number] [address] [place] [address] Jul, [facility] [address] [id number] [address] [place] [address] Jul, [facility] [address] [id number] [address] [place] [address] Jul, [facility] [address] [id number] [address] [place] [address] Jun, [facility] [address] [id number] [address] [place] [address] Jun, [facility] [address] [id number] [address] [place] [address] Jun, [facility] [address] [id number] [address] [place] [address] May, [facility] [address] [id number] [address] [place] [address] May, [facility] [address] [id number] [address] [place] [address] May, [facility] [address] [id number] [address] [place] [address] May, [facility] [address] [id number] [address] [place] [address], [place] [address] 17 May, 2014 [facility] [address] [id number] [address] [place] [address], [place] [address] May, 2014 [facility] [address] [id number] [address] [place] [address], [place] [address] May, 2014 [facility] [address] [id number] [address] [place] [address], [place] [address] May, 2014 [facility] [address] [id number] [address] [place] [address], [place] [address] May, [facility] [address] [id number] [address] [place] [address], [place] [address] May, [facility] [address] [id number] [address] [place] [address], [place] [address] Apr, [facility] [address] [id number] [address] [place] [address], [place] [address] Apr, [facility] [address] [id number] [address] [place] [address], [place] [address] Apr, [facility] [address] [id number] [address] [place] [address], [place] [address] Apr, [facility] [address] [id number] [address] [place] [address], [place] [address] Apr, [facility] [address] [id number] [address] [place] [address], [place] [address] Apr, [facility] [address] [id number] [address] [place] [address], [place] [address] Apr, [facility] [address] [id number] [address] [place] [address], [place] [address] Apr, [facility] [address] [id number] [address] [place] [address], [place] [address] Apr, [facility] [address] [id number] [address] [place] [address], [place] [address] Apr, [facility] [address] [id number] [address] [place] [address], [place] [address] Apr, [facility] [address] [id number] [address] [place] [address], [place] [address] Apr, [facility] [address] [id number] [address] [place] [address], [place] [address] Apr, [facility] [address] [id number] [address] [place] [address], [place] [address] Apr, [facility] [address] [id number] [address] [place] [address], [place] [address] Apr, [facility] [address] [id number] [address] [place] [address], [place] [address] Mar, [facility] [address] [id number] [address] [place] [address], [place] [address] Mar, [facility] [address] [id number] [address] [place] [address], [place] [address] Mar, [facility] [address] [id number] [address] [place] [address], [place] [address] Mar, [facility] [address] [id number] [address] [place] [address], [place] [address] Feb, [facility] [address] [id number] [address] [place] [address], [place] [address] Feb, [facility] [address] [id number] [address] [place] [address] Feb, [facility] [address] [id number] [address] [place] [address], [place] [address] Feb, [facility] [address] [id number] [address] [place] [address] Jan, [facility] [address] [id number] [address] [place] [address], [place] [address] Jan, [facility] [address] [id number] [address] [place] [address], [place] [address] Jan, [facility] [address] [id number] [address] [place] [address], [place] [address] Jan, [facility] [address] [id number] [address] [place] [address], [place] [address] Jan, [facility] [address] [id number] [address] [place] [address], [place] [address] Jan, [facility] [address] [id number] [address] [place] [address], [place] [address] Jan, [facility] [address] [id number] [address] [place] [address], [place] [address] Jan, [facility] [address] [id number] [address] [place] [address], [place] [address] Dec, [facility] [address] [id number] [address] [place] [address], [place] [address] Dec, 2013 [facility] [address] [id number] [address] [place] [address], [place] [address] Dec, [facility] [address] [id number] [address] [place] [address], [place] [address] Dec, [facility] [address] [id number] [address] [place] [address], [place] [address] Oct, [facility] [address] [id number] [address] [place] [address], [place] [address] Oct, [facility] [address] [id number] [address] [place] [address], [place] [address] Oct, [facility] [address] [id number] [address] [place] [address], [place] [address] Oct, [facility] [address] [id number] [address] [place] [address], [place] [address] Oct, [facility] [address] [id number] [address] [place] [address], [place] [address] Oct, [facility] [address] [id number] [facility] [place] [address] Oct, [facility] [address] [id number] [address] [place] [address], [place] [address] Oct, [facility] [address] [id number] [address] [place] [address], [place] [address] Sep, [facility] [address] [id number] [address] [place] [address], [place] [address] Sep, [facility] [address] [id number] [address] [place] [address], [place] [address] Sep, [facility] [address] [id number] [address] [place] [address], [place] [address] Sep, [facility] [address] [id number] [address] [place] [address], [place] [address] Sep, [facility] [address] [id number] [address] [place] [address], [place] [address] Sep, [facility] [address] [id number] [address] [place] [address], [place] [address] Sep, [facility] [address] [id number] [address] [place] [address], [place] [address] Sep, [facility] [address] [id number] [address] [place] [address], [place] [address] Sep, [facility] [address] [id number] [address] [place] [address], [place] [address] Sep, [facility] [address] [id number] [address] [place] [address], [place] [address] August, [facility] [address] [id number] [address] [place] [address], [place] [address] August, [facility] [address] [id number] [address] [place] [address], [place] [address] August, [facility] [address] [id number] [address] [place] [address], [place] [address] August, [facility] [address] [id number] [address] [place] [address], [place] [address] August, [facility] [address] [id number] [address] [place] [address], [place] [address] August, [facility] [address] [id number] [address] [place] [address], [place] [address] August, [facility] [address] [id number] [address] [place] [address], [place] [address] August, [facility] [address] [id number] [address] [place] [address], [place] [address] August, [facility] [address] [id number] [address] [place] [address], [place] [address] August, [facility] [address] [id number] [address] [place] [address], [place] [address] August, [facility] [address] [id number] [address] [place] [address], [place] [address] August, [facility] [address] [id number] [address] [place] [address], [place] [address] Jul, [facility] [address] [id number] [address] [place] [address], [place] [address] Jul, [facility] [address] [id number] [address] [place] [address], [place] [address] Jul, [facility] [address] [id number] [address] [place] [address], [place] [address] Jul, [facility] [address] [id number] [address] [place] [address], [place] [address] Jul, [facility] [address] [id number] [address] [place] [address], [place] [address] Jul, [facility] [address] [id number] [address] [place] [address], [place] [address] Jun, [facility] [address] [id number] [address] [place] [address], [place] [address] Jun, [facility] [address] [id number] [address] [place] [address], [place] [address] May, [facility] [address] [id number] [address] [place] [address], [place] [address] May, [facility] [address] [id number] [address] [place] [address], [place] [address] Apr, [facility] [address] [id number] [address] [place] [address], [place] [address] Apr, [facility] [address] [id number] [address] [place] [address], [place] [address] Apr, [facility] [address] [id number] [address] [place] [address], [place] [address] Apr, [facility] [address] [id number] [address] [place] [address], [place] [address] Apr, [facility] [address] [id number] [address] [place] [address], [place] [address] Apr, [facility] [address] [id number] [address] [place] [address], [place] [address] Apr, [facility] [address] [id number] [address] [place] [address], [place] [address] Apr, [facility] [address] [id number] [address] [place] [address], [place] [address] Apr, [facility] [address] [id number] [address] [place] [address], [place] [address] Apr, [facility] [address] [id number] [address] [place] [address], [place] [address] Apr, [facility] [address] [id number] [address] [place] [address], [place] [address] Apr, [facility] [address] [id number] [address] [place] [address], [place] [address] Apr, [facility] [address] [id number] [address] [place] [address], [place] [address] Mar, [facility] [address] [id number] [address] [place] [address], [place] [address] Mar, [facility] [address] [id number] [address] [place] [address], [place] [address] Mar, [facility] [address] [id number] [address] [place] [address], [place] [address] Mar, [facility] [address] [id number] [address] [place] [address], [place] [address] Feb, [facility] [address] [id number] [address] [place] [address], [place] [address] Feb, [facility] [address] [id number] [address] [place] [address], [place] [address] Feb, [facility] [address] [id number] [address] [place] [address], [place] [address] Feb, [facility] [address] [id number] [address] [place] [address], [place] [address] 14 Jan, 2013 [facility] [address] [id number] [address] [place] [address], [place] [address] 14 Jan, 2013 [facility] [address] [id number] [address] [place] [address] Jan, [facility] [address] [id number] [address] [place] [address] 11 Jan, 2013 [facility] [address] [id number] [address] [place] [address], [place] [address] 10 Jan, 2013 [facility] [address] [id number] [address] [place] [address], [place] [address] 10 Jan, 2013 [facility] [address] [id number] [address] [place] [address], [place] [address] 09 Jan, 2013 [facility] [address] [id number] [address] [place] [address], [place] [address] Jan, [facility] [address] [id number] [address] [place] [address], [place] [address] Jan, [facility] [address] [id number] [address] [place] [address], [place] [address] Dec, [facility] [address] [id number] [address] [place] [address], [place] [address] 16 Dec, 2012 [facility] [address] [id number] [address] [place] [address], [place] [id number] 16 Dec, 2012 [facility] [address] [id number] [address] [place] [address], [place] [address] Dec, [facility] [address] [id number] [address] [place] [address], [place] [address] Nov, [facility] [address] [id number] [address] [place] [address], [place] [address] Nov, [facility] [address] [id number] [address] [place] [address], [place] [address] Nov, [facility] [address] [id number] [address] [place] [address], [place] [address] Nov, [facility] [address] [id number] [address] [place] [address], [place] [address] Oct, [facility] [address] [id number] [address] [place] [address], [place] [address] Sep, [facility] [address] [id number] [address] [place] [address], [place] [address] August, [facility] [address] [id number] [address] [place] [address], [place] [address] August, [facility] [address] [id number] [address] [place] [address], [place] [address] August, [facility] [address] [id number] [address] [place] [address], [place] [address] August, [facility] [address] [id number] [address] [place] [address], [place] [address] August, [facility] [address] [id number] [address] [place] [address], [place] [address] August, [facility] [address] [id number] [address] [place] [address], [place] [address] August, [facility] [address] [id number] [address] [place] [address], [place] [address] August, [facility] [address] [id number] [address] [place] [address], [place] [address] August, [facility] [address] [id number] [address] [place] [address], [place] [address] August, [facility] [address] [id number] [address] [place] [address], [place] [address] August, [facility] [address] [id number] [address] [place] [address], [place] [address] August, [facility] [address] [id number] [address] [place] [address], [place] [address] Jul, [facility] [address] [id number] [address] [place] [address], [place] [address] Jul, [facility] [address] [id number] [address] [place] [address], [place] [address] Jul, [facility] [address] [id number] [address] [place] [address], [place] [address] Jul, [facility] [address] [id number] [address] [place] [address], [place] [address] Jul, [facility] [address] [id number] [address] [place] [address], [place] [address] Jul, [facility] [address] [id number] [address] [place] [address], [place] [address] 04 Jul, 2012 [facility] [address] [id number] [address] [place] [address], [place] [address] Jul, [facility] [address] [id number] [address] [place] [address], [place] [address] Jul, [facility] [address] [id number] [address] [place] [address], [place] [address] Jul, [facility] [address] [id number] [address] [place] [address], [place] [address] Jul, [facility] [address] [id number] [address] [place] [address], [place] [address] Jun, [facility] [address] [id number] [address] [place] [address], [place] [address] Jun, [facility] [address] [id number] [address] [place] [address], [place] [address] Jun, [facility] [address] [id number] [address] [place] [address], [place] [address] Jun, [facility] [address] [id number] [address] [place] [address], [place] [address] May, [facility] [address] [id number] [address] [place] [address], [place] [address] May, [facility] [address] [id number] [address] [place] [address], [place] [address] May, [facility] [address] [id number] [address] [place] [address], [place] [address] May, [facility] [address] [id number] [address] [place] [address], [place] [address] May, [facility] [address] [id number] [address] [place] [address], [place] [address] May, [facility] [address] [id number] [address] [place] [address], [place] [address] Apr, [facility] [address] [id number] [address] [place] [address], [place] [address] Apr, [facility] [address] [id number] [address] [place] [address], [place] [address] 30 Apr, 2012 [facility] [address] [id number] [address] [place] [address], [place] [address] 28 Apr, 2012 [facility] [address] [id number] [address] [place] [address], [place] [address] 15 Mar, 2012 [facility] [address] [id number] [address] [place] [address], [place] [address] 14 Mar, 2012 [facility] [address] [id number] [address] [place] [address], [place] [address] Mar, [facility] [address] [id number] [address] [place] [address], [place] [address] Mar, [facility] [address] [id number] [address] [place] [address], [place] [address] Mar, [facility] [address] [id number] [address] [place] [address], [place] [address] 06 Mar, 2012 [facility] [address] [id number] [address] [place] [address], [place] [address] Mar, [facility] [address] [id number] [address] [place] [address], [place] [address] Feb, [facility] [address] [id number] [address] [place] [address], [place] [address] Feb, [facility] [address] [id number] [address] [place] [address], [place] [address] Feb, [facility] [address] [id number] [address] [place] [address], [place] [address] Feb, [facility] [address] [id number] [address] [place] [address], [place] [address] Jan, [facility] [address] [id number] [address] [place] [address], [place] [address] Jan, [facility] [address] [id number] [address] [place] [address] Jan, [facility] [address] [id number] [address] [place] [address], [place] [address] Jan, [facility] [address] [id number] [address] [place] [address], [place] [address] Jan, [facility] [address] [id number] [address] [place] [address], [place] [address] Jan, [facility] [address] [id number] [address] [place] [address], [place] [address] Dec, [facility] [address] [id number] [address] [place] [address], [place] [address] Dec, [facility] [address] [id number] [address] [place] [address], [place] [address] Nov, [facility] [address] [id number] [address] [place] [address], [place] [address] Sep, [facility] [address] [id number] [address] [place] [address], [place] [address] August, [facility] [address] [id number] [address] [place] [address], [place] [address] August, [facility] [address] [id number] [address] [place] [address], [place] [address] August, [facility] [address] [id number] [address] [place] [address], [place] [address] August, [facility] [address] [id number] [address] [place] [address], [place] [address] August, [facility] [address] [id number] [address] [place] [address], [place] [address] Jun, [facility] [address] [id number] [address] [place] [address], [place] [address] Jun, [facility] [address] [id number] [address] [place] [address], [place] [address] Apr, [facility] [address] [id number] [address] [place] [address], [place] [address] 20 Apr, 2011 [facility] [address] [id number] [address] [place] [address], [place] [address] 23 Mar, 2011 [facility] [address] [id number] [address] [place] [address], [place] [address] Feb, [facility] [address] [id number] [address] [place] [address], [place] [address] 14 Feb, 2011 [facility] [address] [id number] [address] [place] [address], [place] [address] 14 Feb, 2011 [facility] [address] [id number] [address] [place] [address], [place] [address] 17 Jan, 2011 [facility] [address] [id number] [address] [place] [address], [place] [address] 15 Jan, 2011 [facility] [address] [id number] [address] [place] [address], [place] [address] 15 Jan, 2011 [facility] [address] [id number] [address] [place] [address], [place] [address] 14 Jan, 2011 [facility] [address] [id number] [address] [place] [address], [place] [address] 15 May, 2010 [facility] [address] [id number] [address] [place] [address], [place] [address] 04 Mar, 2010 [facility] [address] [id number] [address] [place] [address], [place] [address] Oct, [facility] [address] [id number] [address] [place] [address], [place] [address] Sep, [facility] [address] [id number] [address] [place] [address], [place] [address] Mar, [facility] [address] [id number] [address] [place] [address], [place] [address] Jan, [facility] [address] [id number] [address] [place] [address], [place] [address] Jan, [facility] [address] [facility] [id number] [address] [place] [address] May, IMMUNIZATIONS No Known Immunizations SOCIAL HISTORY Never Assessed REASON FOR VISIT [facility] PLAN OF CARE VITAL SIGNS MEDICATIONS Unknown Medications RESULTS No Results PROCEDURES No Known procedures INSTRUCTIONS MEDICATIONS ADMINISTERED No Known Medications MEDICAL (GENERAL) HISTORY Type Description Date Medical History hypertension Medical History Colposcopy with loop electro de excision of the cervix was performed 06/2012, mild squamous atypia (no definite dyplasia). Performed at [facility] Dr. Joy. Medical History Acute suppurative [...]
--- OUTSIDE RECORDS SUMMARY | 2019-11-23 06:01 | XMS REPORT ---
Author Author Liana Coe Doctor Organization [facility] Address Unknown Phone Unavailable Care Team Providers Care Pricing Analyst Name Role Phone Migration, Doctor Unavailable Unavailable PROBLEMS Type Condition ICD9-CM Code KVL83-SZ Code Onset Dates Condition S tatus SNOMED Code Problem Hematuria, unspecified type R31.9 Ac tive 49467604 Problem Abnormal renal ultrasound R93.429 Acti ve [id number] Problem Anxiety F41.9 Active 36533965 Problem Hypokalemia E87.6 Active 29843173 Problem Abnormal glucose R73.09 Active 102 469180 Problem Chronic pain due to trauma G89.21 Act juanis [id number] Problem Neuroforaminal stenosis of spine M99.89 Active [id number] Problem Neck pain M54.2 Active 42818293 Problem Essential hypertension I10 Active 52121405 Problem Mixed hyperlipidemia E78.2 Active 09862214 ALLERGIES No Information ENCOUNTERS Encounter Location Date Diagnosis [place] [id number] [facility] [id number] [address] [place] [phone] Jul, Neuroforaminal stenosis of s pine M99.89 and Essential hypertension I10 [facility] [address] [facility] [id number] [address] [place] [address] May, Neuroforaminal stenosis of s pine M99.89 [facility] [address] [facility] [id number] [address] [place] [phone] May, [facility] [address] [facility] [id number] [address] [place] [phone] May, Congestion of nasal sinus R0 9.81 [facility] [address] [facility] [id number] [address] [place] [phone] May, [facility] [address] [facility] [id number] [address] [place] [id number] Apr, Neuroforaminal stenosis of s pine M99.89 [facility] [address] [id number] [address] [place] [id number] Apr, Neuroforaminal stenosis of s pine M99.89 and Chronic pain due to trauma G89.21 [facility] [address] [id number] [address] [place] [id number] Mar, UTI (urinary tract infection ) N39.0 [facility] [address] [id number] [address] [place] [id number] Mar, Vertigo R42 [facility] [address] [id number] [address] [place] [id number] Mar, Neuroforaminal stenosis of s jose M99.89 [facility] [address] [id number] [address] [place] [id number] Feb, Extensor tendon disruption M 67.89 [facility] [address] [id number] [address] [place] [id number] Feb, Neuroforaminal stenosis of ayla garcia M99.89 and High risk medication use Z79.899 [facility] [address] [id number] [address] [place] [id number] Jan, Hypokalemia E87.6 [facility] [address] [id number] [address] [place] [id number] Jan, Flank pain R10.9 and Acute r ight-sided low back pain without sciatica M54.5 [facility] [address] [id number] [address] [place] [phone] Jan, Hypokalemia E87.6 [facility] [address] [id number] [address] [place] [phone] Jan, [facility] [address] [id number] [address] [place] [id number] Jan, URI, acute J06.9 [facility] [address] [id number] 05 Jan, 2018 Neuroforaminal stenosis of s jose M99.89 [place] [address] [id number] 13 Dec, 2017 Lateral epicondylitis, right elbow M77.11 [place] [address] [address] 11 Dec, 2017 Allergic rhinitis due to monica rosalina, unspecified seasonality J30.1 and Allergic conjunctivitis of both eyes H10.13 [place] [address] [address] 10 Dec, 2017 Neuroforaminal stenosis of s jose M99.89 [place] [address] [address] 06 Dec, 2017 Mixed hyperlipidemia E78.2 [place] [address] [address] 05 Dec, 2017 Abnormal glucose R73.09 ; Ab normal renal ultrasound R93.429 ; Dysuria R30.0 ; Cystitis without hematuria N30.90 ; Hypokalemia E87.6 ; Mixed hyperlipidemia E78.2 and Hematuria, unspecified type R31.9 [place] [address] [address] Nov, Hypokalemia E87.6 ; Mixed hy perlipidemia E78.2 and Hematuria, unspecified type R31.9 [place] [address] [address] Nov, [place] [address] [address] Nov, Hypokalemia E87.6 [place] [address] [address] Nov, [place] [address] [address] Nov, Abnormal renal ultrasound R9 3.429 [facility] [address] [id number] [address] [place] [address] 16 Nov, 2017 Abnormal renal ultrasound R9 3.429 [facility] [address] [id number] [address] [place] [id number] 09 Nov, 2017 Hematuria, unspecified type R31.9 and Neuroforaminal stenosis of spine M99.89 [facility] [address] [id number] [address] [place] [address] Nov, Dysuria R30.0 [place] [address] [id number] [address] [place] [address] Oct, Lateral epicondylitis, right elbow M77.11 [place] [address] [id number] [address] [place] [phone] Oct, Neuroforaminal stenosis of s pine M99.89 ; Visit for TB skin test Z11.1 and Essential hypertension I10 [place] [address] [id number] [address] [place] [id number] Oct, [place] [address] [id number] [address] [place] [id number] Oct, Neuroforaminal stenosis of s pine M99.89 [place] [address] [id number] [address] [place] [id number] Oct, Visit for TB skin test Z11.1 [place] [address] [id number] [address] [place] [address] Oct, Cystitis without hematuria N 30.90 [place] [address] [id number] [address] [place] [address] Sep, Screening breast examination Z12.39 [place] [address] [id number] [address] [place] [phone] Sep, Dysuria R30.0 and Cystitis w ithout hematuria N30.90 [place] [address] [id number] [address] [place] [address] 14 Sep, 2017 Essential hypertension I10 a nd Neuroforaminal stenosis of spine M99.89 [place] [address] [id number] [address] [place] [id number] 04 Sep, 2017 Abnormal glucose R73.09 [place] [address] [id number] [address] [place] [address] August, Lateral epicondylitis, right elbow M77.11 [place] [address] [id number] [address] [place] [address] August, Screen for STD (sexually tra nsmitted disease) Z11.3 [place] [address] [id number] [address] [place] [id number] August, Neuroforaminal stenosis of s pine M99.89 ; Mixed hyperlipidemia E78.2 ; Elevated fasting glucose R73.01 ; Screening mammogram, encounter for Z12.31 and Encounter for well woman exam without gynecological exam Z00.00 [place] [address] [id number] [address] [place] [address] August, Neuroforaminal stenosis of s pine M99.89 [place] [address] [id number] [address] [place] [id number] August, Essential hypertension I10 ; Hypokalemia E87.6 and Mixed hyperlipidemia E78.2 [place] [address] [id number] [address] [place] [address] Jul, [place] [address] [id number] [address] [place] [address] Jul, Neuroforaminal stenosis of s pine M99.89 [place] [address] [id number] [address] [place] [phone] Jul, Lateral epicondylitis, right elbow M77.11 [place] [address] [id number] [address] [place] [address] Jul, [place] [address] [place] [id number] [address] [place] [address] Jun, High ankle sprain of right l ower extremity, initial encounter S93.431A [place] [address] [place] [id number] [address] [place] [address] Jun, Essential hypertension I10 [place] [address] [place] [id number] [address] [place] [address] Jun, [place] [address] [place] [id number] [address] [place] [phone] Jun, [place] [address] [facility] [id number] [address] [place] [address] Jun, Neuroforaminal stenosis of s pine M99.89 [place] [address] [address] Jun, Pain of right upper extremit y M79.601 and Essential hypertension I10 [place] [id number] [place] [address] Jun, [place] [address] [address] Jun, Dysuria R30.0 ; Acute cystit is with hematuria N30.01 and Screen for STD (sexually transmitted disease) Z11.3 [place] [address] [place] [address] May, Chronic pain due to trauma G 89.21 [place] [address] [facility] [id number] [address] [place] [address] May, Essential hypertension I10 [place] [address] [facility] [id number] [address] [place] [address] May, Neuroforaminal stenosis of s pine M99.89 [place] [address] [place] [id number] [address] [place] [address] Apr, Allergic reaction, initial e ncounter T78.40XA [place] [address] [id number] [address] [place] [address] Apr, Low back pain, unspecified b ack pain laterality, unspecified chronicity, with sciatica presence unspecified M54.5 ; Acute cystitis with hematuria N30.01 ; Neuroforaminal stenosis of spine M99.89 ; Bilateral acute serous otitis media, recurrence not specified H65.03 ; Mixed hyperlipidemia E78.2 ; Essential hypertension I10 ; Immunization counseling Z71.89 and Encounter for immunization Z23 [facility] [address] [id number] [address] [place] [id number] 08 Apr, 2017 Neck pain M54.2 [place] [address] [facility] [id number] [address] [place] [id number] Mar, Neuroforaminal stenosis of s jose M99.89 [place] [address] [facility] [id number] [address] [place] [address] Mar, Pharyngitis due to other org anism J02.8 [place] [address] [id number] [address] [place] [address] Feb, Neuroforaminal stenosis of s jose M99.89 [place] [address] [facility] [id number] [address] [place] [address] Feb, UTI (urinary tract infection ) N39.0 [place] [address] [id number] [address] [place] [address] Feb, Recent urinary tract infecti on Z87.440 ; Neuroforaminal stenosis of spine M99.89 ; Neck pain M54.2 ; Chronic pain due to trauma G89.21 and Recurrent UTI N39.0 [place] [address] [id number] [address] [place] [phone] Feb, [place] [address] [id number] [address] [place] [phone] Jan, Neuroforaminal stenosis of s pine M99.89 [place] [address] [id number] [address] [place] [address] Dec, Neuroforaminal stenosis of s pine M99.89 [facility] [address] [facility] [id number] [address] [place] [id number] Dec, Acute seasonal allergic rhin itis due to pollen J30.1 [facility] [address] [facility] [id number] [address] [place] [phone] Dec, [facility] [address] [facility] [id number] [address] [place] [address] 08 Dec, 2016 Acute seasonal allergic rhin itis, unspecified trigger J30.2 ; Allergic conjunctivitis of both eyes H10.13 and Dysfunction of both eustachian tubes H69.83 [place] [address] [facility] [id number] [address] [place] [address] Dec, [place] [address] [facility] [id number] [address] [place] [address] Dec, Nevus D22.9 [place] [address] [facility] [id number] [address] [place] [address] Nov, Chronic pain due to trauma G 89.21 and Neuroforaminal stenosis of spine M99.89 [place] [address] [facility] [id number] [address] [place] [address] Nov, Neuroforaminal stenosis of s pine M99.89 ; Essential hypertension I10 ; Mixed hyperlipidemia E78.2 ; Hypokalemia E87.6 ; Neck pain M54.2 and Nevus D22.9 [facility] [address] [id number] [address] [place] [address] Oct, Neuroforaminal stenosis of s pine M99.89 [place] [address] [facility] [id number] [address] [place] [address] Sep, Neuroforaminal stenosis of s pine M99.89 [facility] [address] [facility] [id number] [address] [place] [address] Sep, [facility] [address] [id number] [address] [place] [phone] August, [facility] [address] [id number] [address] [place] [address] August, Neck pain M54.2 and Neurofor aminal stenosis of spine M99.89 [facility] [address] [id number] [address] [place] [address] August, Routine gynecological examin ation Z01.419 and Screening breast examination Z12.39 [facility] [address] [id number] [address] [place] [address] Jul, [facility] [address] [id number] [address] [place] [phone] Jul, [facility] [address] [id number] [address] [place] [address] Jul, Neuroforaminal stenosis of s pine M99.89 [facility] [address] [id number] [address] [place] [address] Jul, [facility] [address] [id number] [address] [place] [address] Jul, Neuroforaminal stenosis of l umbar 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 [facility] [address] [id number] [address] [place] [id number] Jul, [facility] [address] [id number] [address] [place] [id number] Jul, [facility] [address] [id number] [address] [place] [address] Jun, Neuroforaminal stenosis of s pine M99.89 [facility] [address] [id number] [address] [place] [address] Jun, Uterine leiomyoma, unspecifi ed location D25.9 and Allergic reaction caused by a drug, initial encounter T78.40XA [facility] [address] [id number] [address] [place] [phone] Jun, [place] [address] [id number] [address] [place] [address] May, UTI symptoms R39.9 and Pain of right sacroiliac joint M53.3 [place] [address] [id number] [address] [place] [address] May, Neuroforaminal stenosis of s pine M99.89 [place] [address] [id number] [address] [place] [id number] May, [place] [address] [facility] [id number] [address] [place] [address] May, Acute mucoid otitis media of left ear H65.112 and Acute non- recurrent maxillary sinusitis J01.00 [place] [address] [facility] [id number] [address] [place] [address] May, Acute bacterial conjunctivit is of both eyes H10.33 ; Left arm pain M79.602 and Hypokalemia E87.6 [place] [address] [facility] [id number] [address] [place] [id number] Apr, [place] [address] [place] [id number] [address] [place] [address] Apr, Neuroforaminal stenosis of s pine M99.89 ; Neck pain M54.2 ; Chronic pain due to trauma G89.21 ; Mixed hyperlipidemia E78.2 ; Essential hypertension I10 and Hypokalemia E87.6 [place] [address] [id number] [address] [place] [address] Mar, Oral candidiasis B37.0 ; Nathaniel roforaminal stenosis of spine M99.89 ; Neck pain M54.2 and Chronic pain due to trauma G89.21 [place] [address] [facility] [id number] [address] [place] [address] Feb, [place] [address] [facility] [id number] [address] [place] [phone] Feb, [facility] [address] [id number] [address] [place] [address] Feb, UTI (urinary tract infection ) N39.0 [facility] [address] [id number] [address] [place] [id number] 09 Feb, 2016 Dysuria R30.0 [facility] [address] [id number] [address] [place] [id number] 08 Feb, 2016 Dysuria R30.0 [facility] [address] [id number] [address] [place] [address] Feb, Neuroforaminal stenosis of s pine M99.89 ; Neck pain M54.2 ; Essential hypertension I10 ; Chronic pain due to trauma G89.21 ; Dysuria R30.0 ; Abnormal MRI, shoulder R93.8 and Acute cystitis without hematuria N30.00 [facility] [address] [id number] [address] [place] [phone] Jan, [facility] [address] [id number] [address] [place] [id number] Jan, [facility] [address] [id number] [address] [place] [phone] Jan, [facility] [address] [id number] [address] [place] [phone] Jan, Abnormal MRI R93.8 [facility] [address] [id number] [address] [place] [id number] 29 Dec, 2015 [facility] [address] [id number] [address] [place] [id number] 15 Dec, 2015 Acute pain of left shoulder M25.512 [facility] [address] [id number] [address] [place] [id number] Dec, [facility] [address] [id number] [address] [place] [id number] Dec, [facility] [address] [id number] [address] [place] [id number] 07 Dec, 2015 Acute pain of left shoulder M25.512 [facility] [address] [id number] [address] [place] [phone] Nov, [facility] [address] [id number] [address] [place] [id number] 16 Nov, 2015 Neuroforaminal stenosis of s pine M99.89 ; Neck pain M54.2 ; Abnormal mammogram R92.8 ; Essential hypertension I10 and Chronic pain due to trauma G89.21 [facility] [address] [id number] [address] [place] [phone] Nov, [facility] [address] [id number] [address] [place] [phone] Oct, Acute stress disorder F43.0 [facility] [address] [id number] [address] [place] [phone] Oct, [facility] [address] [id number] [address] [place] [phone] Oct, [facility] [address] [id number] [address] [place] [phone] Oct, [facility] [address] [id number] [address] [place] [phone] Sep, [facility] [address] [id number] [address] [place] [phone] August, [facility] [address] [id number] [address] [place] [address] Jul, Neuroforaminal stenosis of s pine M99.89 ; Neck pain M54.2 ; Abnormal mammogram R92.8 and Essential hypertension I10 [facility] [address] [id number] [address] [place] [id number] Jul, [facility] [address] [id number] [address] [place] [phone] Jul, [facility] [address] [id number] [address] [place] [address] Jul, Abnormal mammogram R92.8 [facility] [address] [facility] [id number] [address] [place] [id number] Jul, [facility] [address] [facility] [id number] [address] [place] [id number] Jul, UTI (urinary tract infection ) N39.0 [facility] [address] [facility] [id number] [address] [place] [id number] Jul, Dysuria R30.0 [facility] [address] [facility] [id number] [address] [place] [id number] Jun, [facility] [address] [facility] [id number] [address] [place] [id number] Jun, [facility] [address] [place] [id number] [place] [phone] Jun, Hypokalemia E87.6 and Hematu martina R31.9 [facility] [address] [facility] [id number] [address] [place] [phone] Jun, Hypokalemia E87.6 [facility] [address] [facility] [id number] [address] [place] [phone] Jun, [facility] [id number] [place] [phone] Jun, Hypokalemia E87.6 [facility] [address] [facility] [id number] [address] [place] [id number] 18 Jun, 2015 Hypokalemia E87.6 [facility] [address] [place] [id number] [address] [place] [id number] 15 Jun, 2015 Neuroforaminal stenosis of s pine M99.89 ; Hypokalemia E87.6 ; Neck pain M54.2 ; Essential hypertension I10 ; Mixed hyperlipidemia E78.2 and Screening breast examination Z12.39 [facility] [address] [place] [id number] [address] [place] [id number] Jun, Dysuria R30.0 ; UTI (urinary tract infection) N39.0 and Hematuria R31.9 [facility] [address] [place] [id number] [address] [place] [id number] May, [facility] [address] [place] [id number] [place] [address] May, High risk sexual behavior Z7 2.51 ; Hypokalemia E87.6 ; Neuroforaminal stenosis of spine M99.89 ; Neck pain M54.2 ; Essential hypertension I10 ; Mixed hyperlipidemia E78.2 ; STD exposure Z20.2 and Concern about STD in female without diagnosis Z71.1 [facility] [id number] [place] [id number] 16 May, 2015 Neuroforaminal stenosis of s pine M99.89 ; Neck pain M54.2 ; Hypokalemia E87.6 ; Essential hypertension I10 and Mixed hyperlipidemia E78.2 [facility] [address] [id number] May, [facility] [id number] [place] [phone] 08 May, 2015 High risk sexual behavior Z7 2.51 ; STD exposure Z20.2 and Concern about STD in female without diagnosis Z71.1 [facility] [id number] [place] [id number] May, [facility] [id number] [place] [id number] Apr, Neuroforaminal stenosis of s pine M99.89 ; Mixed hyperlipidemia E78.2 ; Essential hypertension I10 and Hypokalemia E87.6 [facility] [address] [facility] [id number] [address] [place] [phone] Mar, [facility] [address] [id number] Mar, Hypokalemia E87.6 [facility] [id number] [place] [phone] Mar, Neuroforaminal stenosis of s pine M99.89 ; Mixed hyperlipidemia E78.2 ; Neck pain M54.2 ; Essential hypertension I10 ; Abnormal fasting glucose R73.09 ; Hypokalemia E87.6 and Constipation K59.00 [place] [address] [address] Feb, Neuroforaminal stenosis of s pine M99.89 ; Mixed hyperlipidemia E78.2 ; Neck pain M54.2 ; Essential hypertension I10 ; Abnormal fasting glucose R73.09 ; Hypokalemia E87.6 and Constipation K59.00 [place] [address] [address] Feb, Elevated fasting blood sugar R73.01 [place] [address] [address] Feb, Elevated fasting blood sugar R73.01 [place] [address] [address] Feb, Hair loss L65.9 [place] [address] [address] Feb, Sinusitis J32.9 ; Essential hypertension I10 and Hair loss L65.9 [place] [place] [id number] [address] [place] [address] Jan, [place] [address] [place] [id number] [place] [address] Jan, Essential hypertension I10 ; Neuroforaminal stenosis of spine M99.89 ; Neck pain M54.2 ; Mixed hyperlipidemia E78.2 and Anxiety F41.9 [facility] [address] [place] [id number] [address] [place] [address] Jan, [place] [address] [address] [place] [id number] [address] [place] [address] Jan, Mixed hyperlipidemia E78.2 ; Essential (primary) hypertension I10 ; Strain of muscle, fascia and tendon at neck level, subsequent encounter S16.1XXD and Tension-type headache, unspecified, not intractable G44.209 [facility] [address] [id number] [address] [place] [address] Dec, Lumbar back pain 724.2 and N euroforaminal stenosis of spine 724.00 [place] [address] [id number] [address] [place] [address] Nov, [place] [address] [id number] [address] [place] [address] Nov, Lumbar back pain 724.2 and N euroforaminal stenosis of spine 724.00 [place] [address] [id number] [address] [place] [address] Nov, Edema 782.3 ; Lumbar back pa in 724.2 ; Essential hypertension, benign 401.1 ; Hyperlipemia 272.4 ; Neuroforaminal stenosis of spine 724.00 and Post-concussion headache 339.20 [place] [address] [id number] [address] [place] [address] Nov, [place] [address] [id number] [address] [place] [address] Nov, [place] [address] [id number] [address] [place] [address] Oct, Essential hypertension, sheridan gn 401.1 [facility] [address] [id number] [address] [place] [address] Oct, Edema 782.3 ; Lumbar back pa in 724.2 ; Essential hypertension, benign 401.1 ; Hyperlipemia 272.4 ; Neuroforaminal stenosis of spine 724.00 and Post-concussion headache 339.20 [place] [address] [id number] [address] [place] [address] Oct, [facility] [address] [id number] [address] [place] [address] Oct, Edema 782.3 [facility] [address] [id number] [address] [place] [address] Oct, Lumbar back pain 724.2 [facility] [address] [id number] [address] [place] [address] Oct, Cervicalgia 723.1 ; Lumbar b ack pain 724.2 and High risk medication use V58.69 [facility] [address] [id number] [address] [place] [address] Sep, [facility] [address] [facility] [id number] [address] [place] [address] Sep, Lumbar strain 847.2 [facility] [address] [facility] [id number] [address] [place] [address] August, Edema 782.3 and Eustachian t ube dysfunction 381.81 [facility] [address] [id number] [address] [place] [address] August, [facility] [address] [id number] [address] [place] [address] August, Eustachian tube dysfunction 381.81 [facility] [address] [id number] [address] [place] [address] Jul, Otalgia 388.70 and Otitis me jonathon 382.9 [facility] [address] [id number] [address] [place] [address] Jul, [facility] [address] [id number] [address] [place] [address] Jul, [facility] [address] [facility] [id number] [address] [place] [address] Jul, [facility] [address] [facility] [id number] [address] [place] [address] Jul, [facility] [address] [id number] [address] [place] [address], [place] [address] 13 Jul, 2014 [facility] [address] [id number] [address] [place] [address], [place] [address] Jun, [facility] [address] [id number] [address] [place] [address], [place] [address] 27 Jun, 2014 [facility] [address] [id number] [address] [place] [address], [place] [address] 16 Jun, 2014 [facility] [address] [id number] [address] [place] [address], [place] [address] May, [facility] [address] [id number] [address] [place] [address], [place] [address] May, [facility] [address] [id number] [address] [place] [address], [place] [address] May, [facility] [address] [id number] [address] [place] [address], [place] [address] May, [facility] [address] [id number] [address] [place] [address], [place] [address] May, 2014 [facility] [address] [id number] [address] [place] [address], [place] [address] May, [facility] [address] [id number] [address] [place] [address], [place] [address] May, 2014 [facility] [address] [id number] [address] [place] [address], [place] [address] May, 2014 [facility] [address] [id number] [address] [place] [address], [place] [address] May, 2014 [facility] [address] [id number] [address] [place] [address], [place] [address] May, 2014 [facility] [address] [id number] [address] [place] [address], [place] [address] Apr, [facility] [address] [id number] [address] [place] [address], [place] [address] Apr, [facility] [address] [id number] [address] [place] [address], [place] [address] Apr, [facility] [address] [id number] [address] [place] [address], [place] [address] Apr, [facility] [address] [id number] [address] [place] [address], [place] [address] Apr, [facility] [address] [id number] [address] [place] [address], [place] [address] Apr, [facility] [address] [id number] [address] [place] [address], [place] [address] Apr, [facility] [address] [id number] [address] [place] [address], [place] [address] Apr, [facility] [address] [id number] [address] [place] [address], [place] [address] Apr, [facility] [address] [id number] [address] [place] [address], [place] [address] Apr, [facility] [address] [id number] [address] [place] [address], [place] [address] Apr, [facility] [address] [id number] [address] [place] [address], [place] [address] Apr, [facility] [address] [id number] [address] [place] [address], [place] [address] Apr, [facility] [address] [id number] [address] [place] [address], [place] [address] Apr, [facility] [address] [id number] [address] [place] [address], [place] [address] Apr, [facility] [address] [id number] [address] [place] [address], [place] [address] Mar, [facility] [address] [id number] [address] [place] [address], [place] [address] Mar, [facility] [address] [id number] [address] [place] [address], [place] [address] Mar, [facility] [address] [id number] [address] [place] [address], [place] [address] Mar, [facility] [address] [id number] [address] [place] [address], [place] [address] Feb, [facility] [address] [id number] [address] [place] [address], [place] [address] Feb, [facility] [address] [id number] [address] [place] [address], [place] [address] Feb, [facility] [address] [id number] [address] [place] [address], [place] [address] Feb, [facility] [address] [id number] [address] [place] [address], [place] [address] Jan, [facility] [address] [id number] [address] [place] [address], [place] [address] Jan, [facility] [address] [id number] [address] [place] [address], [place] [address] Jan, [facility] [address] [id number] [address] [place] [address] Jan, [facility] [address] [id number] [address] [place] [address] Jan, [facility] [address] [id number] [address] [place] [address] Jan, [facility] [address] [id number] [address] [place] [address], [place] [address] Jan, [facility] [address] [id number] [address] [place] [address], [place] [address] Jan, [facility] [address] [id number] [address] [place] [address], [place] [address] Dec, [facility] [address] [id number] [facility] [place] [address] 29 Dec, 2013 [facility] [address] [id number] [address] [place] [address], [place] [address] 04 Dec, 2013 [facility] [address] [id number] [address] [place] [address], [place] [address] 04 Dec, 2013 [facility] [address] [id number] [address] [place] [address], [place] [address] 14 Oct, 2013 [facility] [address] [id number] [address] [place] [address], [place] [address] 14 Oct, 2013 [facility] [address] [id number] [address] [place] [address], [place] [address] Oct, [facility] [address] [id number] [address] [place] [address], [place] [address] Oct, 2013 [facility] [address] [id number] [address] [place] [address], [place] [address] Oct, 2013 [facility] [address] [id number] [address] [place] [address], [place] [address] Oct, 2013 [facility] [address] [id number] [address] [place] [address], [place] [address] Oct, [facility] [address] [id number] [address] [place] [address], [place] [address] Oct, [facility] [address] [id number] [address] [place] [address], [place] [address] Sep, [facility] [address] [id number] [address] [place] [address], [place] [address] Sep, [facility] [address] [id number] [address] [place] [address], [place] [address] Sep, [facility] [address] [id number] [address] [place] [address], [place] [address] Sep, [facility] [address] [id number] [address] [place] [address], [place] [address] Sep, [facility] [address] [id number] [address] [place] [address], [place] [address] Sep, [facility] [address] [id number] [address] [place] [address], [place] [address] Sep, [facility] [address] [id number] [address] [place] [address], [place] [address] Sep, [facility] [address] [id number] [address] [place] [address], [place] [address] Sep, [facility] [address] [id number] [address] [place] [address], [place] [address] Sep, [facility] [address] [id number] [address] [place] [address], [place] [address] August, [facility] [address] [id number] [address] [place] [address], [place] [address] August, [facility] [address] [id number] [address] [place] [address], [place] [address] August, [facility] [address] [id number] [address] [place] [address], [place] [address] August, [facility] [address] [id number] [address] [place] [address], [place] [address] August, [facility] [address] [id number] [address] [place] [address], [place] [address] August, [facility] [address] [id number] [address] [place] [address], [place] [address] August, [facility] [address] [id number] [address] [place] [address], [place] [address] August, [facility] [address] [id number] [address] [place] [address], [place] [address] August, [facility] [address] [id number] [address] [place] [address], [place] [address] August, [facility] [address] [id number] [address] [place] [address], [place] [address] August, [facility] [address] [id number] [address] [place] [address], [place] [address] August, [facility] [address] [id number] [address] [place] [address], [place] [address] Jul, [facility] [address] [id number] [address] [place] [address], [place] [address] Jul, [facility] [address] [id number] [address] [place] [address], [place] [address] Jul, [facility] [address] [id number] [address] [place] [address], [place] [address] Jul, [facility] [address] [id number] [address] [place] [address], [place] [address] Jul, [facility] [address] [id number] [address] [place] [address], [place] [address] Jul, [facility] [address] [id number] [address] [place] [address], [place] [address] Jun, [facility] [address] [id number] [address] [place] [address], [place] [address] Jun, [facility] [address] [id number] [address] [place] [address], [place] [address] May, [facility] [address] [id number] [address] [place] [address], [place] [address] May, [facility] [address] [id number] [address] [place] [address], [place] [address] Apr, [facility] [address] [id number] [address] [place] [address], [place] [address] Apr, [facility] [address] [id number] [address] [place] [address], [place] [address] Apr, [facility] [address] [id number] [address] [place] [address], [place] [address] Apr, [facility] [address] [id number] [address] [place] [address], [place] [address] Apr, [facility] [address] [id number] [address] [place] [address], [place] [address] Apr, [facility] [address] [id number] [address] [place] [address], [place] [address] Apr, [facility] [address] [id number] [address] [place] [address], [place] [address] Apr, [facility] [address] [id number] [address] [place] [address], [place] [address] Apr, [facility] [address] [id number] [address] [place] [address], [place] [address] Apr, [facility] [address] [id number] [address] [place] [address], [place] [address] Apr, [facility] [address] [id number] [address] [place] [address], [place] [address] Apr, [facility] [address] [id number] [address] [place] [address], [place] [address] Apr, [facility] [address] [id number] [address] [place] [address], [place] [address] Mar, [facility] [address] [id number] [address] [place] [address], [place] [address] Mar, [facility] [address] [id number] [address] [place] [address], [place] [address] Mar, [facility] [address] [id number] [address] [place] [address], [place] [address] Mar, [facility] [address] [id number] [address] [place] [address], [place] [address] Feb, [facility] [address] [id number] [address] [place] [address], [place] [address] Feb, [facility] [address] [id number] [address] [place] [address], [place] [address] Feb, [facility] [address] [id number] [address] [place] [address], [place] [address] 08 Feb, 2013 [facility] [address] [id number] [address] [place] [address], [place] [address] 14 Jan, 2013 [facility] [address] [id number] [address] [place] [address], [place] [address] 14 Jan, 2013 [facility] [address] [id number] [address] [place] [address], [place] [address] Jan, [facility] [address] [id number] [address] [place] [address], [place] [address] Jan, [facility] [address] [id number] [address] [place] [address], [place] [address] Jan, [facility] [address] [id number] [address] [place] [address], [place] [address] Jan, [facility] [address] [id number] [address] [place] [address], [place] [address] Jan, [facility] [address] [id number] [address] [place] [address], [place] [address] Jan, [facility] [address] [id number] [address] [place] [address], [place] [address] Jan, [facility] [address] [id number] [address] [place] [address], [place] [address] 26 Dec, 2012 [facility] [address] [id number] [address] [place] [address], [place] [address] 16 Dec, 2012 [facility] [address] [id number] [address] [place] [address], [place] [address] 16 Dec, 2012 [facility] [address] [id number] [address] [place] [address], [place] [address] 13 Dec, 2012 [facility] [address] [id number] [address] [place] [address], [place] [address] 17 Nov, 2012 [facility] [address] [id number] [address] [place] [address] [place] [address] Nov, [facility] [address] [id number] [address] [place] [address], [place] [address] Nov, [facility] [address] [id number] [address] [place] [address], [place] [address] Nov, [facility] [address] [id number] [address] [place] [address], [place] [address] Oct, [facility] [address] [id number] [address] [place] [address], [place] [address] Sep, [facility] [address] [id number] [address] [place] [address], [place] [address] August, [facility] [address] [id number] [address] [place] [address], [place] [address] August, [facility] [address] [id number] [address] [place] [address], [place] [address] August, [facility] [address] [id number] [address] [place] [address], [place] [address] August, [facility] [address] [id number] [address] [place] [address], [place] [address] August, [facility] [address] [id number] [address] [place] [address], [place] [address] August, [facility] [address] [id number] [address] [place] [address], [place] [address] August, [facility] [address] [id number] [address] [place] [address], [place] [address] August, [facility] [address] [id number] [address] [place] [address], [place] [address] August, [facility] [address] [id number] [address] [place] [address], [place] [address] August, [facility] [address] [id number] [address] [place] [address], [place] [address] August, [facility] [address] [id number] [address] [place] [address], [place] [address] August, [facility] [address] [id number] [address] [place] [address], [place] [address] Jul, [facility] [address] [id number] [address] [place] [address], [place] [address] Jul, [facility] [address] [id number] [address] [place] [address], [place] [address] Jul, [facility] [address] [id number] [address] [place] [address], [place] [address] 15 Jul, 2012 [facility] [address] [id number] [address] [place] [address], [place] [address] Jul, [facility] [address] [id number] [address] [place] [address], [place] [address] Jul, [facility] [address] [id number] [address] [place] [address], [place] [address] Jul, [facility] [address] [id number] [address] [place] [address], [place] [address] Jul, [facility] [address] [id number] [address] [place] [address], [place] [address] Jul, [facility] [address] [id number] [address] [place] [address], [place] [address] Jul, [facility] [address] [id number] [address] [place] [address], [place] [address] Jul, [facility] [address] [id number] [address] [place] [address], [place] [address] Jun, [facility] [address] [id number] [address] [place] [address], [place] [address] Jun, [facility] [address] [id number] [address] [place] [address], [place] [address] Jun, [facility] [address] [id number] [address] [place] [address], [place] [address] Jun, [facility] [address] [id number] [address] [place] [address], [place] [address] May, [facility] [address] [id number] [address] [place] [address], [place] [address] 14 May, 2012 [facility] [address] [id number] [address] [place] [address], [place] [address] May, [facility] [address] [id number] [address] [place] [address], [place] [address] May, [facility] [address] [id number] [address] [place] [address], [place] [address] May, [facility] [address] [id number] [address] [place] [address], [place] [address] May, [facility] [address] [id number] [address] [place] [address], [place] [address] Apr, [facility] [address] [id number] [address] [place] [address], [place] [address] Apr, [facility] [address] [id number] [address] [place] [address], [place] [address] Apr, [facility] [address] [id number] [address] [place] [address], [place] [address] Apr, [facility] [address] [id number] [address] [place] [address], [place] [address] 15 Mar, 2012 [facility] [address] [id number] [address] [place] [address], [place] [address] 14 Mar, 2012 [facility] [address] [id number] [address] [place] [address], [place] [address] 14 Mar, 2012 [facility] [address] [id number] [address] [place] [address], [place] [address] 14 Mar, 2012 [facility] [address] [id number] [address] [place] [address], [place] [address] 14 Mar, 2012 [facility] [address] [id number] [address] [place] [address], [place] [address] Mar, [facility] [address] [id number] [address] [place] [address], [place] [address] Mar, [facility] [address] [id number] [address] [place] [address], [place] [address] Feb, [facility] [address] [id number] [address] [place] [address], [place] [address] Feb, [facility] [address] [id number] [address] [place] [address], [place] [address] Feb, [facility] [address] [id number] [address] [place] [address], [place] [address] Feb, [facility] [address] [id number] [address] [place] [address], [place] [address] Jan, [facility] [address] [id number] [address] [place] [address], [place] [address] Jan, [facility] [address] [id number] [address] [place] [address], [place] [address] Jan, [facility] [address] [id number] [address] [place] [address], [place] [address] Jan, [facility] [address] [id number] [address] [place] [address], [place] [address] Jan, [facility] [address] [id number] [address] [place] [address], [place] [address] Jan, [facility] [address] [id number] [address] [place] [address], [place] [address] Dec, [facility] [address] [id number] [address] [place] [address], [place] [address] Dec, [facility] [address] [id number] [address] [place] [address], [place] [address] Nov, [facility] [address] [id number] [address] [place] [address], [place] [address] Sep, [facility] [address] [id number] [address] [place] [address], [place] [address] August, [facility] [address] [id number] [address] [place] [address], [place] [address] August, [facility] [address] [id number] [address] [place] [address], [place] [address] August, [facility] [address] [id number] [address] [place] [address], [place] [address] August, [facility] [address] [id number] [address] [place] [address], [place] [address] August, [facility] [address] [id number] [address] [place] [address], [place] [address] Jun, [facility] [address] [id number] [address] [place] [address], [place] [address] Jun, [facility] [address] [id number] [address] [place] [address], [place] [address] Apr, [facility] [address] [id number] [address] [place] [address], [place] [address] Apr, [facility] [address] [id number] [address] [place] [address], [place] [address] Mar, [facility] [address] [id number] [address] [place] [address], [place] [address] Feb, [facility] [address] [id number] [address] [place] [address], [place] [address] 14 Feb, 2011 [facility] [address] [id number] [address] [place] [address], [place] [address] 14 Feb, 2011 [facility] [address] [id number] [address] [place] [address], [place] [address] 17 Jan, 2011 [facility] [address] [id number] [address] [place] [address], [place] [address] 15 Jan, 2011 [facility] [address] [id number] [address] [place] [address] 15 Jan, 2011 [facility] [address] [id number] [address] [place] [address] 14 Jan, 2011 [facility] [address] [id number] [address] [place] [address] 15 May, 2010 [facility] [address] [id number] [address] [place] [address] Mar, [facility] [address] [id number] [address] [place] [address] Oct, [facility] [address] [facility] [id number] [address] [place] [address] Sep, [facility] [address] [facility] [id number] [address] [place] [address] Mar, [facility] [address] [facility] [id number] [address] [place] [address] Jan, [facility] [address] [facility] [id number] [address] [place] [address] Jan, [facility] [address] [facility] [id number] [address] [place] [address] May, IMMUNIZATIONS No Known Immunizations SOCIAL HISTORY Never Assessed REASON FOR VISIT [facility] PLAN OF CARE VITAL SIGNS MEDICATIONS Unknown Medications RESULTS No Results PROCEDURES No Known procedures INSTRUCTIONS MEDICATIONS ADMINISTERED No Known Medications MEDICAL (GENERAL) HISTORY Type Description Date Medical History hypertension Medical History Colposcopy with loop electro de excision of the cervix was performed 06/2012, mild squamous atypia (no definite dyplasia). Performed at [facility] Dr. Joy. Medical History Acute suppurative otitis [...]
--- OUTSIDE RECORDS SUMMARY | 2019-11-23 06:01 | XMS REPORT ---
Author Author Liana Coe Doctor Organization [facility] Address Unknown Phone Unavailable Care Team Providers Care Payroll Auditor Name Role Phone Migration, Doctor Unavailable Unavailable PROBLEMS Type Condition ICD9-CM Code CBM84-QX Code Onset Dates Condition S tatus SNOMED Code Problem Hematuria, unspecified type R31.9 Ac tive 06358537 Problem Abnormal renal ultrasound R93.429 Acti ve [id number] Problem Anxiety F41.9 Active 40737036 Problem Hypokalemia E87.6 Active 69088231 Problem Abnormal glucose R73.09 Active 102 448727 Problem Chronic pain due to trauma G89.21 Act juanis 502142446 Problem Neuroforaminal stenosis of spine M99.89 Active 784379457644 Problem Neck pain M54.2 Active 85164357 Problem Essential hypertension I10 Active 61436239 Problem Mixed hyperlipidemia E78.2 Active 36185332 ALLERGIES No Information ENCOUNTERS Encounter Location Date Diagnosis [place] [address] [place] [id number] [place] [address] Jul, Viral upper respiratory illn ess J06.9 and Acute non-recurrent frontal sinusitis J01.10 [place] [address] [place] [address] Jul, Congestion of nasal sinus R0 9.81 [facility] [address] [place] [address] [id number] [address] [place] [address] Jul, Neuroforaminal stenosis of s pine M99.89 and Essential hypertension I10 [facility] [address] [place] [address] [id number] [address] [place] [address] May, Neuroforaminal stenosis of s pine M99.89 [place] [address] [place] [id number] [address] [place] [address] May, [place] [address] [place] [id number] [address] [place] [address] May, Congestion of nasal sinus R0 9.81 [facility] [address] [id number] [address] [place] [address] May, [facility] [address] [id number] [address] [place] [address] Apr, Neuroforaminal stenosis of s pine M99.89 [facility] [address] [id number] [address] [place] [phone] Apr, Neuroforaminal stenosis of s pine M99.89 and Chronic pain due to trauma G89.21 [place] [address] [id number] [address] [place] [address] Mar, UTI (urinary tract infection ) N39.0 [place] [address] [id number] [address] [place] [phone] Mar, Vertigo R42 [place] [address] [id number] [address] [place] [address] Mar, Neuroforaminal stenosis of s pine M99.89 [place] [address] [id number] [address] [place] [address] Feb, Extensor tendon disruption M 67.89 [facility] [address] [id number] [address] [place] [address] Feb, Neuroforaminal stenosis of s pine M99.89 and High risk medication use Z79.899 [place] [address] [id number] [address] [place] [address] Jan, Hypokalemia E87.6 [place] [address] [facility] [id number] [address] [place] [address] Jan, Flank pain R10.9 and Acute r ight-sided low back pain without sciatica M54.5 [facility] [address] [id number] [address] [place] [phone] Jan, Hypokalemia E87.6 [place] [address] [facility] [id number] [address] [place] [address] Jan, [place] [address] [facility] [id number] [address] [place] [phone] Jan, URI, acute J06.9 [place] [address] [place] [id number] [address] [place] [phone] 05 Jan, 2018 Neuroforaminal stenosis of s pine M99.89 [place] [address] [place] [id number] [place] [address] 13 Dec, 2017 Lateral epicondylitis, right elbow M77.11 [place] [address] [place] [address] [id number] [place] [address] 11 Dec, 2017 Allergic rhinitis due to monica rosalina, unspecified seasonality J30.1 and Allergic conjunctivitis of both eyes H10.13 [place] [address] [place] [id number] [place] [phone] 10 Dec, 2017 Neuroforaminal stenosis of s jose M99.89 [place] [address] [place] [id number] [place] [address] Dec, Mixed hyperlipidemia E78.2 [place] [address] [place] [address] [id number] [place] [address] 05 Dec, 2017 Abnormal glucose R73.09 ; Ab normal renal ultrasound R93.429 ; Dysuria R30.0 ; Cystitis without hematuria N30.90 ; Hypokalemia E87.6 ; Mixed hyperlipidemia E78.2 and Hematuria, unspecified type R31.9 [place] [address] [place] [id number] [address] [place] [address] Nov, Hypokalemia E87.6 ; Mixed hy perlipidemia E78.2 and Hematuria, unspecified type R31.9 [place] [address] [place] [id number] [address] [place] [phone] Nov, [place] [address] [place] [address] [id number] [place] [address], [place] [address] Nov, Hypokalemia E87.6 [facility] [address] [id number] [address] [place] [address] Nov, [facility] [address] [id number] [address] [place] [address] Nov, Abnormal renal ultrasound R9 3.429 [facility] [address] [id number] [address] [place] [address] Nov, Abnormal renal ultrasound R9 3.429 [facility] [address] [id number] [address] [place] [address] Nov, Hematuria, unspecified type R31.9 and Neuroforaminal stenosis of spine M99.89 [place] [address] [place] [id number] [address] [place] [address] Nov, Dysuria R30.0 [place] [address] [id number] [address] [place] [address] Oct, Lateral epicondylitis, right elbow M77.11 [place] [address] [facility] [id number] [address] [place] [address] Oct, Neuroforaminal stenosis of s pine M99.89 ; Visit for TB skin test Z11.1 and Essential hypertension I10 [place] [address] [id number] [address] [place] [phone] Oct, [facility] [address] [facility] [id number] [address] [place] [address] Oct, Neuroforaminal stenosis of s pine M99.89 [place] [address] [facility] [id number] [address] [place] [phone] Oct, Visit for TB skin test Z11.1 [place] [address] [facility] [id number] [address] [place] [phone] 05 Oct, 2017 Cystitis without hematuria N 30.90 [facility] [address] [id number] [address] [place] [phone] 28 Sep, 2017 Screening breast examination Z12.39 [place] [address] [id number] [address] [place] [address] 26 Sep, 2017 Dysuria R30.0 and Cystitis w ithout hematuria N30.90 [place] [address] [id number] [address] [place] [phone] 14 Sep, 2017 Essential hypertension I10 a nd Neuroforaminal stenosis of spine M99.89 [place] [address] [id number] [address] [place] [address] 04 Sep, 2017 Abnormal glucose R73.09 [place] [address] [facility] [id number] [address] [place] [address] August, Lateral epicondylitis, right elbow M77.11 [place] [address] [facility] [id number] [address] [place] [address] August, Screen for STD (sexually tra nsmitted disease) Z11.3 [place] [address] [facility] [id number] [address] [place] [address] August, Neuroforaminal stenosis of s jose M99.89 ; Mixed hyperlipidemia E78.2 ; Elevated fasting glucose R73.01 ; Screening mammogram, encounter for Z12.31 and Encounter for well woman exam without gynecological exam Z00.00 [place] [address] [facility] [id number] [address] [place] [address] August, Neuroforaminal stenosis of s pine M99.89 [place] [address] [id number] [address] [place] [phone] August, Essential hypertension I10 ; Hypokalemia E87.6 and Mixed hyperlipidemia E78.2 [place] [address] [id number] [address] [place] [address] Jul, [place] [address] [facility] [id number] [address] [place] [address] Jul, Neuroforaminal stenosis of s jose M99.89 [facility] [address] [id number] [address] [place] [address] Jul, Lateral epicondylitis, right elbow M77.11 [facility] [address] [id number] [address] [place] [address] Jul, [facility] [address] [id number] [address] [place] [address] Jun, High ankle sprain of right l ower extremity, initial encounter S93.431A [facility] [address] [id number] [address] [place] [address] Jun, Essential hypertension I10 [place] [address] [id number] [address] [place] [phone] Jun, [place] [address] [facility] [id number] [address] [place] [address] Jun, [facility] [address] [facility] [id number] [address] [place] [address] Jun, Neuroforaminal stenosis of s jose M99.89 [facility] [address] [facility] [id number] [address] [place] [address] Jun, Pain of right upper extremit y M79.601 and Essential hypertension I10 [facility] [address] [facility] [id number] [address] [place] [address] Jun, [place] [address] [facility] [id number] [address] [place] [address] Jun, Dysuria R30.0 ; Acute cystit is with hematuria N30.01 and Screen for STD (sexually transmitted disease) Z11.3 [place] [address] [id number] [address] [place] [address] May, Chronic pain due to trauma G 89.21 [facility] [address] [facility] [id number] [address] [place] [address] May, Essential hypertension I10 [place] [address] [place] [id number] [address] [place] [address] May, Neuroforaminal stenosis of ayla garcia M99.89 [place] [address] [place] [id number] [address] [place] [address] Apr, Allergic reaction, initial e ncounter T78.40XA [place] [address] [place] [id number] [place] [address] Apr, Low back pain, unspecified b ack pain laterality, unspecified chronicity, with sciatica presence unspecified M54.5 ; Acute cystitis with hematuria N30.01 ; Neuroforaminal stenosis of spine M99.89 ; Bilateral acute serous otitis media, recurrence not specified H65.03 ; Mixed hyperlipidemia E78.2 ; Essential hypertension I10 ; Immunization counseling Z71.89 and Encounter for immunization Z23 [place] [id number] [place] [address] Apr, Neck pain M54.2 [place] [address] [place] [id number] [address] [place] [address] Mar, Neuroforaminal stenosis of ayla garcia M99.89 [place] [address] [place] [id number] [address] [place] [address] Mar, Pharyngitis due to other org anism J02.8 [place] [address] [place] [id number] [address] [place] [address] Feb, Neuroforaminal stenosis of ayla garcia M99.89 [place] [address] [place] [id number] [place] [address] 08 Feb, 2017 UTI (urinary tract infection ) N39.0 [place] [address] [place] [id number] [address] [place] [address] 07 Feb, 2017 Recent urinary tract infecti on Z87.440 ; Neuroforaminal stenosis of spine M99.89 ; Neck pain M54.2 ; Chronic pain due to trauma G89.21 and Recurrent UTI N39.0 [facility] [address] [id number] [address] [place] [phone] Feb, [facility] [address] [id number] [address] [place] [address] Jan, Neuroforaminal stenosis of s pine M99.89 [facility] [address] [id number] [address] [place] [address] 28 Dec, 2016 Neuroforaminal stenosis of s pine M99.89 [facility] [address] [id number] [address] [place] [address] 18 Dec, 2016 Acute seasonal allergic rhin itis due to pollen J30.1 [facility] [address] [id number] [address] [place] [phone] 08 Dec, 2016 [facility] [address] [id number] [address] [place] [id number] 08 Dec, 2016 Acute seasonal allergic rhin itis, unspecified trigger J30.2 ; Allergic conjunctivitis of both eyes H10.13 and Dysfunction of both eustachian tubes H69.83 [facility] [address] [id number] [address] [place] [address] 07 Dec, 2016 [place] [address] [id number] [address] [place] [address] Dec, Nevus D22.9 [facility] [address] [id number] [address] [place] [address] Nov, Chronic pain due to trauma G 89.21 and Neuroforaminal stenosis of spine M99.89 [facility] [address] [id number] [address] [place] [address] Nov, Neuroforaminal stenosis of s pine M99.89 ; Essential hypertension I10 ; Mixed hyperlipidemia E78.2 ; Hypokalemia E87.6 ; Neck pain M54.2 and Nevus D22.9 [facility] [address] [id number] [address] [place] [address] Oct, Neuroforaminal stenosis of s pine M99.89 [facility] [address] [id number] [address] [place] [address] Sep, Neuroforaminal stenosis of s pine M99.89 [facility] [address] [id number] [address] [place] [address] Sep, [facility] [address] [id number] [address] [place] [address] August, [facility] [address] [id number] [address] [place] [address] August, Neck pain M54.2 and Neurofor aminal stenosis of spine M99.89 [facility] [address] [id number] [address] [place] [address] August, Routine gynecological examin ation Z01.419 and Screening breast examination Z12.39 [facility] [address] [id number] [address] [place] [phone] Jul, [facility] [address] [id number] [address] [place] [address] Jul, [facility] [address] [id number] [address] [place] [address] Jul, Neuroforaminal stenosis of s pine M99.89 [facility] [address] [id number] [address] [place] [address] Jul, [facility] [address] [id number] [address] [place] [address] Jul, Neuroforaminal stenosis of l umbar 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 [facility] [address] [id number] [address] [place] [address] Jul, [facility] [address] [id number] [address] [place] [address] Jul, [facility] [address] [id number] [address] [place] [address] Jun, Neuroforaminal stenosis of s jose M99.89 [place] [address] [place] [id number] [place] [address] Jun, Uterine leiomyoma, unspecifi ed location D25.9 and Allergic reaction caused by a drug, initial encounter T78.40XA [facility] [address] [place] [id number] [place] [phone] Jun, [place] [address] [place] [id number] [place] [address] May, UTI symptoms R39.9 and Pain of right sacroiliac joint M53.3 [place] [id number] [place] [address] May, Neuroforaminal stenosis of ayla garcia M99.89 [place] [address] [place] [id number] [place] [address] May, [place] [address] [address] May, Acute mucoid otitis media of left ear H65.112 and Acute non- recurrent maxillary sinusitis J01.[address] [address] May, Acute bacterial conjunctivit is of both eyes H10.33 ; Left arm pain M79.602 and Hypokalemia E87.6 [place] [address] [place] [id number] [place] [address] Apr, [place] [address] [place] [id number] [address] [place] [address] Apr, Neuroforaminal stenosis of s pine M99.89 ; Neck pain M54.2 ; Chronic pain due to trauma G89.21 ; Mixed hyperlipidemia E78.2 ; Essential hypertension I10 and Hypokalemia E87.6 [place] [address] [place] [id number] [address] [place] [id number] Mar, Oral candidiasis B37.0 ; Nathaniel roforaminal stenosis of spine M99.89 ; Neck pain M54.2 and Chronic pain due to trauma G89.21 [facility] [address] [facility] [id number] [address] [place] [phone] Feb, [facility] [address] [facility] [id number] [address] [place] [address] Feb, [facility] [address] [facility] [id number] [address] [place] [id number] Feb, UTI (urinary tract infection ) N39.0 [facility] [address] [facility] [id number] [address] [place] [address] Feb, Dysuria R30.0 [facility] [address] [facility] [id number] [address] [place] [address] Feb, Dysuria R30.0 [facility] [address] [place] [id number] [place] [address] Feb, Neuroforaminal stenosis of s pine M99.89 ; Neck pain M54.2 ; Essential hypertension I10 ; Chronic pain due to trauma G89.21 ; Dysuria R30.0 ; Abnormal MRI, shoulder R93.8 and Acute cystitis without hematuria N30.00 [facility] [address] [place] [address] [id number] [address] [place] [id number] Jan, [facility] [address] [place] [id number] [address] [place] [address] Jan, [facility] [address] [facility] [id number] [address] [place] [phone] Jan, [facility] [address] [facility] [id number] [address] [place] [address] Jan, Abnormal MRI R93.8 [facility] [address] [facility] [id number] [address] [place] [address] Dec, [facility] [address] [facility] [id number] [address] [place] [address] 15 Dec, 2015 Acute pain of left shoulder M25.512 [facility] [address] [id number] [address] [place] [id number] 09 Dec, 2015 [facility] [address] [id number] [address] [place] [address] 08 Dec, 2015 [facility] [address] [id number] [address] [place] [address] 07 Dec, 2015 Acute pain of left shoulder M25.512 [facility] [address] [id number] [address] [place] [address] 23 Nov, 2015 [facility] [address] [id number] [address] [place] [address] Nov, Neuroforaminal stenosis of s pine M99.89 ; Neck pain M54.2 ; Abnormal mammogram R92.8 ; Essential hypertension I10 and Chronic pain due to trauma G89.21 [facility] [address] [id number] [address] [place] [address] Nov, [facility] [address] [id number] [address] [place] [address] Oct, Acute stress disorder F43.0 [facility] [address] [id number] [address] [place] [phone] Oct, [facility] [address] [id number] [address] [place] [phone] Oct, [facility] [address] [id number] [address] [place] [address] Oct, [facility] [address] [id number] [address] [place] [phone] Sep, [facility] [address] [id number] [address] [place] [id number] August, [facility] [address] [id number] [address] [place] [address] Jul, Neuroforaminal stenosis of s pine M99.89 ; Neck pain M54.2 ; Abnormal mammogram R92.8 and Essential hypertension I10 [facility] [address] [id number] [address] [place] [phone] Jul, [facility] [address] [id number] [address] [place] [phone] Jul, [facility] [address] [id number] [address] [place] [phone] Jul, Abnormal mammogram R92.8 [facility] [address] [id number] [address] [place] [id number] Jul, [facility] [address] [id number] [address] [place] [id number] Jul, UTI (urinary tract infection ) N39.0 [facility] [address] [id number] [address] [place] [id number] Jul, Dysuria R30.0 [facility] [address] [id number] [address] [place] [id number] Jun, [facility] [address] [id number] [address] [place] [id number] Jun, [facility] [address] [id number] [address] [place] [phone] Jun, Hypokalemia E87.6 and Hematu martina R31.9 [facility] [address] [id number] [address] [place] [id number] Jun, Hypokalemia E87.6 [facility] [address] [id number] [address] [place] [id number] Jun, [facility] [address] [id number] [address] [place] [id number] Jun, Hypokalemia E87.6 [facility] [address] [id number] [address] [place] [id number] Jun, Hypokalemia E87.6 [facility] [address] [facility] [id number] [address] [place] [id number] 15 Jun, 2015 Neuroforaminal stenosis of s pine M99.89 ; Hypokalemia E87.6 ; Neck pain M54.2 ; Essential hypertension I10 ; Mixed hyperlipidemia E78.2 and Screening breast examination Z12.39 [facility] [address] [id number] Jun, Dysuria R30.0 ; UTI (urinary tract infection) N39.0 and Hematuria R31.9 [place] [address] [place] [id number] [place] [phone] May, [facility] [address] [id number] 18 May, 2015 High risk sexual behavior Z7 2.51 ; Hypokalemia E87.6 ; Neuroforaminal stenosis of spine M99.89 ; Neck pain M54.2 ; Essential hypertension I10 ; Mixed hyperlipidemia E78.2 ; STD exposure Z20.2 and Concern about STD in female without diagnosis Z71.1 [place] [address] [id number] 16 May, 2015 Neuroforaminal stenosis of s pine M99.89 ; Neck pain M54.2 ; Hypokalemia E87.6 ; Essential hypertension I10 and Mixed hyperlipidemia E78.2 [facility] [address] [place] [id number] [address] [place] [address] May, [facility] [address] [id number] [address] [place] [address] 08 May, 2015 High risk sexual behavior Z7 2.51 ; STD exposure Z20.2 and Concern about STD in female without diagnosis Z71.1 [facility] [address] [id number] [address] [place] [address] 05 May, 2015 [facility] [address] [id number] [address] [place] [address] Apr, Neuroforaminal stenosis of ayla garcia M99.89 ; Mixed hyperlipidemia E78.2 ; Essential hypertension I10 and Hypokalemia E87.6 [facility] [address] [id number] [address] [place] [address] Mar, [facility] [id number] [place] [address] Mar, Hypokalemia E87.6 [facility] [id number] [place] [address] Mar, Neuroforaminal stenosis of s jose M99.89 ; Mixed hyperlipidemia E78.2 ; Neck pain M54.2 ; Essential hypertension I10 ; Abnormal fasting glucose R73.09 ; Hypokalemia E87.6 and Constipation K59.00 [place] [address] [address] Feb, Neuroforaminal stenosis of ayla garcia M99.89 ; Mixed hyperlipidemia E78.2 ; Neck pain M54.2 ; Essential hypertension I10 ; Abnormal fasting glucose R73.09 ; Hypokalemia E87.6 and Constipation K59.00 [place] [address] [address] Feb, Elevated fasting blood sugar R73.01 [place] [address] [address] Feb, Elevated fasting blood sugar R73.01 [facility] [address] [id number] [address] [place] [address] Feb, Hair loss L65.9 [place] [address] [address] Feb, Sinusitis J32.9 ; Essential hypertension I10 and Hair loss L65.9 [facility] [address] [id number] [address] [place] [address] Jan, [facility] [id number] [place] [address] [place] [address] Jan, Essential hypertension I10 ; Neuroforaminal stenosis of spine M99.89 ; Neck pain M54.2 ; Mixed hyperlipidemia E78.2 and Anxiety F41.9 [facility] [address] [id number] [address] [place] [address] Jan, [facility] [address] [id number] [address] [place] [address] Jan, Mixed hyperlipidemia E78.2 ; Essential (primary) hypertension I10 ; Strain of muscle, fascia and tendon at neck level, subsequent encounter S16.1XXD and Tension-type headache, unspecified, not intractable G44.209 [facility] [address] [id number] [address] [place] [address] Dec, Lumbar back pain 724.2 and N euroforaminal stenosis of spine 724.00 [facility] [address] [id number] [address] [place] [address] Nov, [facility] [address] [id number] [address] [place] [address] Nov, Lumbar back pain 724.2 and N euroforaminal stenosis of spine 724.00 [facility] [address] [id number] [address] [place] [address] Nov, Edema 782.3 ; Lumbar back pa in 724.2 ; Essential hypertension, benign 401.1 ; Hyperlipemia 272.4 ; Neuroforaminal stenosis of spine 724.00 and Post-concussion headache 339.20 [facility] [address] [id number] [address] [place] [address] Nov, [facility] [address] [id number] [address] [place] [address] Nov, [facility] [address] [id number] [address] [place] [address] Oct, Essential hypertension, sheridan gn 401.1 [facility] [address] [id number] [address] [place] [address] Oct, Edema 782.3 ; Lumbar back pa in 724.2 ; Essential hypertension, benign 401.1 ; Hyperlipemia 272.4 ; Neuroforaminal stenosis of spine 724.00 and Post-concussion headache 339.20 [facility] [address] [id number] [address] [place] [address] Oct, [facility] [address] [id number] [address] [place] [address] Oct, Edema 782.3 [place] [address] [id number] [address] [place] [address] Oct, Lumbar back pain 724.2 [place] [address] [facility] [id number] [address] [place] [address] Oct, Cervicalgia 723.1 ; Lumbar b ack pain 724.2 and High risk medication use V58.69 [place] [address] [id number] [address] [place] [address] Sep, [place] [address] [id number] [address] [place] [address] Sep, Lumbar strain 847.2 [place] [address] [facility] [id number] [address] [place] [address] August, Edema 782.3 and Eustachian t ube dysfunction 381.81 [place] [address] [id number] [address] [place] [address] August, [place] [address] [facility] [id number] [address] [place] [address] August, Eustachian tube dysfunction 381.81 [place] [address] [facility] [id number] [address] [place] [address] Jul, Otalgia 388.70 and Otitis me jonathon 382.9 [place] [address] [facility] [id number] [address] [place] [address] Jul, [facility] [address] [id number] [address] [place] [address], [place] [address] 28 Jul, 2014 [facility] [address] [id number] [address] [place] [address], [place] [address] 28 Jul, 2014 [facility] [address] [id number] [address] [place] [address], [place] [address] 14 Jul, 2014 [facility] [address] [id number] [address] [place] [address], [place] [address] 13 Jul, 2014 [facility] [address] [id number] [address] [place] [address], [place] [address] 27 Jun, 2014 [facility] [address] [id number] [address] [place] [address], [place] [address] 27 Jun, 2014 [facility] [address] [id number] [address] [place] [address], [place] [address] 16 Jun, 2014 [facility] [address] [id number] [address] [place] [address], [place] [address] May, 2014 [facility] [address] [id number] [address] [place] [address], [place] [address] May, [facility] [address] [id number] [address] [place] [address], [place] [address] 23 May, 2014 [facility] [address] [id number] [address] [place] [address], [place] [address] May, 2014 [facility] [address] [id number] [address] [place] [address], [place] [address] May, 2014 [facility] [address] [id number] [address] [place] [address], [place] [address] May, 2014 [facility] [address] [id number] [address] [place] [address], [place] [address] 09 May, 2014 [facility] [address] [id number] [address] [place] [address], [place] [address] 05 May, 2014 [facility] [address] [id number] [address] [place] [address], [place] [address] May, [facility] [address] [id number] [address] [place] [address], [place] [address] May, [facility] [address] [id number] [address] [place] [address], [place] [address] Apr, [facility] [address] [id number] [address] [place] [address], [place] [address] Apr, [facility] [address] [id number] [address] [place] [address], [place] [address] Apr, [facility] [address] [id number] [address] [place] [address], [place] [address] Apr, [facility] [address] [id number] [address] [place] [address], [place] [address] Apr, [facility] [address] [id number] [address] [place] [address], [place] [address] Apr, [facility] [address] [id number] [address] [place] [address], [place] [address] Apr, [facility] [address] [id number] [address] [place] [address], [place] [address] Apr, [facility] [address] [id number] [address] [place] [address], [place] [address] Apr, [facility] [address] [id number] [address] [place] [address], [place] [address] Apr, [facility] [address] [id number] [address] [place] [address], [place] [address] Apr, [facility] [address] [id number] [address] [place] [address], [place] [address] Apr, [facility] [address] [id number] [address] [place] [address], [place] [address] Apr, [facility] [address] [id number] [address] [place] [address], [place] [address] Apr, [facility] [address] [id number] [address] [place] [address], [place] [address] Apr, [facility] [address] [id number] [address] [place] [address], [place] [address] Mar, [facility] [address] [id number] [address] [place] [address], [place] [address] Mar, [facility] [address] [id number] [address] [place] [address], [place] [address] Mar, [facility] [address] [id number] [address] [place] [address], [place] [address] Mar, [facility] [address] [id number] [address] [place] [address], [place] [address] Feb, [facility] [address] [id number] [address] [place] [address], [place] [address] Feb, [facility] [address] [id number] [address] [place] [address], [place] [address] Feb, [facility] [address] [id number] [address] [place] [address], [place] [address] Feb, [facility] [address] [id number] [address] [place] [address], [place] [address] Jan, [facility] [address] [id number] [address] [place] [address], [place] [address] Jan, [facility] [address] [id number] [address] [place] [address] Jan, [facility] [address] [id number] [address] [place] [address], [place] [address] Jan, [facility] [address] [id number] [address] [place] [address], [place] [address] Jan, [facility] [address] [id number] [address] [place] [address], [place] [address] Jan, [facility] [address] [id number] [address] [place] [address] [place] [address] Jan, [facility] [address] [id number] [address] [place] [address], [place] [address] Jan, [facility] [address] [id number] [address] [place] [address], [place] [address] Dec, [facility] [address] [id number] [address] [place] [address], [place] [address] Dec, [facility] [address] [id number] [address] [place] [address], [place] [address] Dec, [facility] [address] [id number] [address] [place] [address], [place] [address] Dec, [facility] [address] [id number] [address] [place] [address], [place] [address] Oct, [facility] [address] [id number] [address] [place] [address], [place] [address] Oct, [facility] [address] [id number] [address] [place] [address], [place] [address] Oct, [facility] [address] [id number] [address] [place] [address], [place] [address] Oct, [facility] [address] [id number] [address] [place] [address], [place] [address] Oct, [facility] [address] [id number] [address] [place] [address], [place] [address] Oct, [facility] [address] [id number] [address] [place] [address], [place] [address] Oct, [facility] [address] [id number] [address] [place] [address], [place] [address] Oct, [facility] [address] [id number] [address] [place] [address], [place] [address] Sep, [facility] [address] [id number] [address] [place] [address], [place] [address] Sep, [facility] [address] [id number] [facility] [place] [address] Sep, [facility] [address] [id number] [facility] [address] Sep, [facility] [address] [id number] [address] [place] [address], [place] [address] Sep, [facility] [address] [id number] [address] [place] [address], [place] [address] Sep, [facility] [address] [id number] [address] [place] [address], [place] [address] Sep, [facility] [address] [id number] [address] [place] [address], [place] [address] Sep, [facility] [address] [id number] [address] [place] [address], [place] [address] Sep, [facility] [address] [id number] [address] [place] [address], [place] [address] Sep, [facility] [address] [id number] [address] [place] [address], [place] [address] August, [facility] [address] [id number] [address] [place] [address], [place] [address] August, [facility] [address] [id number] [address] [place] [address], [place] [address] August, [facility] [address] [id number] [address] [place] [address], [place] [address] August, [facility] [address] [id number] [address] [place] [address], [place] [address] August, [facility] [address] [id number] [address] [place] [address], [place] [address] August, [facility] [address] [id number] [address] [place] [address], [place] [address] August, [facility] [address] [id number] [address] [place] [address], [place] [address] August, [facility] [address] [id number] [facility] [place] [address] August, [facility] [address] [id number] [address] [place] [address], [place] [address] August, [facility] [address] [id number] [address] [place] [address], [place] [address] August, [facility] [address] [id number] [address] [place] [address], [place] [address] August, [facility] [address] [id number] [address] [place] [address], [place] [address] Jul, [facility] [address] [id number] [address] [place] [address], [place] [address] Jul, [facility] [address] [id number] [address] [place] [address], [place] [address] Jul, [facility] [address] [id number] [address] [place] [address], [place] [address] Jul, [facility] [address] [id number] [address] [place] [address], [place] [address] Jul, [facility] [address] [id number] [address] [place] [address], [place] [address] Jul, [facility] [address] [id number] [address] [place] [address], [place] [address] Jun, [facility] [address] [id number] [address] [place] [address], [place] [address] Jun, [facility] [address] [id number] [address] [place] [address], [place] [address] May, [facility] [address] [id number] [address] [place] [address], [place] [address] May, [facility] [address] [id number] [address] [place] [address], [place] [address] Apr, [facility] [address] [id number] [address] [place] [address], [place] [address] Apr, [facility] [address] [id number] [address] [place] [address], [place] [address] Apr, [facility] [address] [id number] [address] [place] [address], [place] [address] Apr, [facility] [address] [id number] [address] [place] [address], [place] [address] Apr, [facility] [address] [id number] [address] [place] [address], [place] [address] Apr, [facility] [address] [id number] [address] [place] [address], [place] [address] Apr, [facility] [address] [id number] [address] [place] [address], [place] [address] Apr, [facility] [address] [id number] [address] [place] [address], [place] [address] Apr, [facility] [address] [id number] [address] [place] [address], [place] [address] Apr, [facility] [address] [id number] [address] [place] [address], [place] [address] Apr, [facility] [address] [id number] [address] [place] [address], [place] [address] Apr, [facility] [address] [id number] [address] [place] [address], [place] [address] Apr, [facility] [address] [id number] [address] [place] [address], [place] [address] Mar, [facility] [address] [id number] [address] [place] [address], [place] [address] Mar, [facility] [address] [id number] [address] [place] [address], [place] [address] Mar, [facility] [address] [id number] [address] [place] [address], [place] [address] Mar, [facility] [address] [id number] [address] [place] [address], [place] [address] Feb, [facility] [address] [id number] [address] [place] [address], [place] [address] Feb, [facility] [address] [id number] [address] [place] [address], [place] [address] Feb, [facility] [address] [id number] [address] [place] [address], [place] [address] Feb, [facility] [address] [id number] [address] [place] [address], [place] [address] Jan, [facility] [address] [id number] [address] [place] [address], [place] [address] Jan, [facility] [address] [id number] [address] [place] [address], [place] [address] Jan, [facility] [address] [id number] [address] [place] [address] Jan, [facility] [address] [id number] [address] [place] [address], [place] [address] Jan, [facility] [address] [id number] [address] [place] [address] Jan, [facility] [address] [id number] [address] [place] [id number] Jan, [facility] [address] [id number] [address] [place] [id number] Jan, [facility] [address] [id number] [address] [place] [id number] Jan, [facility] [address] [id number] [address] [place] [id number] 26 Dec, 2012 [facility] [address] [id number] [address] [place] [id number] 16 Dec, 2012 [facility] [address] [id number] [address] [place] [id number] 16 Dec, 2012 [facility] [address] [id number] [address] [place] [address], [place] [address] Dec, [facility] [address] [id number] [address] [place] [address], [place] [address] Nov, [facility] [address] [id number] [address] [place] [address], [place] [address] Nov, [facility] [address] [id number] [address] [place] [address], [place] [address] Nov, [facility] [address] [id number] [address] [place] [address], [place] [address] Nov, [facility] [address] [id number] [address] [place] [address], [place] [address] Oct, [facility] [address] [id number] [address] [place] [address], [place] [address] Sep, [facility] [address] [id number] [address] [place] [address], [place] [address] August, [facility] [address] [id number] [address] [place] [address], [place] [address] August, [facility] [address] [id number] [address] [place] [address], [place] [address] August, [facility] [address] [id number] [address] [place] [address], [place] [address] August, [facility] [address] [id number] [address] [place] [address], [place] [address] August, [facility] [address] [id number] [address] [place] [address], [place] [address] August, [facility] [address] [id number] [address] [place] [address], [place] [address] August, [facility] [address] [id number] [address] [place] [address], [place] [address] August, [facility] [address] [id number] [address] [place] [address], [place] [address] August, [facility] [address] [id number] [address] [place] [address], [place] [address] August, [facility] [address] [id number] [address] [place] [address], [place] [address] August, [facility] [address] [id number] [address] [place] [address], [place] [address] August, [facility] [address] [id number] [address] [place] [address], [place] [address] Jul, [facility] [address] [id number] [address] [place] [address], [place] [address] Jul, [facility] [address] [id number] [address] [place] [address], [place] [address] Jul, [facility] [address] [id number] [address] [place] [address], [place] [address] Jul, [facility] [address] [id number] [address] [place] [address], [place] [address] Jul, [facility] [address] [id number] [address] [place] [address], [place] [address] Jul, [facility] [address] [id number] [address] [place] [address], [place] [address] Jul, [facility] [address] [id number] [address] [place] [address], [place] [address] Jul, [facility] [address] [id number] [address] [place] [address], [place] [address] Jul, [facility] [address] [id number] [address] [place] [address], [place] [address] Jul, [facility] [address] [id number] [address] [place] [address], [place] [address] Jul, [facility] [address] [id number] [address] [place] [address], [place] [address] Jun, [facility] [address] [id number] [address] [place] [address], [place] [address] Jun, [facility] [address] [id number] [address] [place] [address], [place] [address] Jun, [facility] [address] [id number] [address] [place] [address], [place] [address] Jun, [facility] [address] [id number] [address] [place] [address], [place] [address] May, [facility] [address] [id number] [address] [place] [address], [place] [address] May, [facility] [address] [id number] [address] [place] [address], [place] [address] May, [facility] [address] [id number] [address] [place] [address], [place] [address] May, [facility] [address] [id number] [address] [place] [address], [place] [address] May, [facility] [address] [id number] [address] [place] [address], [place] [address] May, [facility] [address] [id number] [address] [place] [address], [place] [address] Apr, [facility] [address] [id number] [address] [place] [address], [place] [address] Apr, [facility] [address] [id number] [address] [place] [address], [place] [id number] 30 Apr, 2012 [facility] [address] [id number] [address] [place] [address], [place] [address] Apr, [facility] [address] [id number] [address] [place] [address], [place] [address] Mar, [facility] [address] [id number] [address] [place] [address], [place] [address] Mar, [facility] [address] [id number] [address] [place] [address], [place] [address] 14 Mar, 2012 [facility] [address] [id number] [address] [place] [address], [place] [address] 14 Mar, 2012 [facility] [address] [id number] [address] [place] [address], [place] [address] Mar, [facility] [address] [id number] [address] [place] [address], [place] [address] Mar, [facility] [address] [id number] [address] [place] [address], [place] [address] Mar, [facility] [address] [id number] [address] [place] [address], [place] [address] Feb, [facility] [address] [id number] [address] [place] [address], [place] [address] Feb, [facility] [address] [id number] [address] [place] [address], [place] [address] Feb, [facility] [address] [id number] [address] [place] [address], [place] [address] Feb, [facility] [address] [id number] [address] [place] [address], [place] [address] Jan, [facility] [address] [id number] [address] [place] [address], [place] [address] Jan, [facility] [address] [id number] [address] [place] [address], [place] [address] Jan, [facility] [address] [id number] [address] [place] [address], [place] [address] Jan, [facility] [address] [id number] [address] [place] [address], [place] [address] Jan, [facility] [address] [id number] [address] [place] [address], [place] [address] Jan, [facility] [address] [id number] [address] [place] [address], [place] [address] Dec, [facility] [address] [id number] [address] [place] [address], [place] [address] Dec, [facility] [address] [id number] [address] [place] [address], [place] [address] Nov, [facility] [address] [id number] [address] [place] [address], [place] [address] Sep, [facility] [address] [id number] [address] [place] [address], [place] [address] August, [facility] [address] [id number] [address] [place] [address], [place] [address] August, [facility] [address] [id number] [address] [place] [address], [place] [address] August, [facility] [address] [id number] [address] [place] [address], [place] [address] August, [facility] [address] [id number] [address] [place] [address], [place] [address] August, [facility] [address] [id number] [address] [place] [address], [place] [address] Jun, [facility] [address] [id number] [address] [place] [address], [place] [address] Jun, [facility] [address] [id number] [address] [place] [address], [place] [address] Apr, [facility] [address] [id number] [address] [place] [address], [place] [address] Apr, [facility] [address] [id number] [address] [place] [address], [place] [address] Mar, [facility] [address] [id number] [address] [place] [address], [place] [address] Feb, [facility] [address] [id number] [address] [place] [address], [place] [address] Feb, [facility] [address] [id number] [address] [place] [id number] 14 Feb, 2011 [facility] [address] [id number] [address] [place] [id number] 17 Jan, 2011 [facility] [address] [id number] [address] [place] [id number] 15 Jan, 2011 [facility] [address] [id number] [address] [place] [id number] 15 Jan, 2011 [facility] [address] [id number] [address] [place] [id number] 14 Jan, 2011 [facility] [address] [id number] [address] [place] [id number] May, [facility] [address] [id number] [address] [place] [address] Mar, [facility] [address] [id number] [address] [place] [id number] Oct, [facility] [address] [id number] [address] [place] [id number] Sep, [facility] [address] [id number] [address] [place] [id number] Mar, [facility] [address] [id number] [address] [place] [id number] Jan, [facility] [address] [id number] [address] [place] [id number] Jan, [facility] [address] [id number] [address] [place] [id number] May, IMMUNIZATIONS No Known Immunizations SOCIAL HISTORY Never Assessed REASON FOR VISIT EMR-[facility] [place] PLAN OF CARE VITAL SIGNS MEDICATIONS No Known Medications RESULTS No Results PROCEDURES No Known [...]
--- OUTSIDE RECORDS SUMMARY | 2019-11-23 06:01 | XMS REPORT ---
Author Author Liana Coe Doctor Organization [facility] Address Unknown Phone Unavailable Care Team Providers Care Bioinformatician Name Role Phone Migration, Doctor Unavailable Unavailable PROBLEMS Type Condition ICD9-CM Code [id number] Code Onset Dates Condition S tatus SNOMED Code Problem Hematuria, unspecified type R31.9 Ac tive 28375124 Problem Abnormal renal ultrasound R93.429 Acti ve [id number] Problem Anxiety F41.9 Active 35320473 Problem Hypokalemia E87.6 Active 11666497 Problem Abnormal glucose R73.09 Active 102 492783 Problem Chronic pain due to trauma G89.21 Act juanis 468592598 Problem Neuroforaminal stenosis of spine M99.89 Active 515270067650 Problem Neck pain M54.2 Active 80889155 Problem Essential hypertension I10 Active 07631054 Problem Mixed hyperlipidemia E78.2 Active 79011406 ALLERGIES No Information ENCOUNTERS Encounter Location Date Diagnosis [place] [address] [place] [id number] [place] [address] Jul, Viral upper respiratory illn ess J06.9 and Acute non-recurrent frontal sinusitis J01.10 [place] [id number] [place] [address] Jul, Congestion of nasal sinus R0 9.81 [facility] [address] [place] [id number] [address] [place] [address] Jul, Neuroforaminal stenosis of s pine M99.89 and Essential hypertension I10 [facility] [address] [place] [id number] [address] [place] [address] May, Neuroforaminal stenosis of s pine M99.89 [place] [address] [place] [id number] [place] [address] May, [place] [address] [place] [id number] [address] [place] [address] May, Congestion of nasal sinus R0 9.81 [facility] [address] [id number] [address] [place] [address] May, [facility] [address] [id number] [address] [place] [address] Apr, Neuroforaminal stenosis of s pine M99.89 [facility] [address] [id number] [address] [place] [address] Apr, Neuroforaminal stenosis of s pine M99.89 and Chronic pain due to trauma G89.21 [place] [address] [id number] [address] [place] [address] Mar, UTI (urinary tract infection ) N39.0 [place] [address] [id number] [address] [place] [address] Mar, Vertigo R42 [place] [address] [id number] [address] [place] [address] Mar, Neuroforaminal stenosis of s pine M99.89 [place] [address] [id number] [address] [place] [address] Feb, Extensor tendon disruption M 67.89 [facility] [address] [id number] [address] [place] [address] Feb, Neuroforaminal stenosis of s pine M99.89 and High risk medication use Z79.899 [place] [address] [id number] [address] [place] [address] Jan, Hypokalemia E87.6 [place] [address] [facility] [id number] [address] [place] [address] Jan, Flank pain R10.9 and Acute r ight-sided low back pain without sciatica M54.5 [facility] [address] [id number] [address] [place] [address] Jan, Hypokalemia E87.6 [place] [address] [facility] [id number] [address] [place] [address] Jan, [place] [address] [facility] [id number] [address] [place] [address] Jan, URI, acute J06.9 [place] [address] [place] [id number] [address] [place] [address] 05 Jan, 2018 Neuroforaminal stenosis of s pine M99.89 [place] [address] [place] [id number] [place] [address] 13 Dec, 2017 Lateral epicondylitis, right elbow M77.11 [place] [address] [place] [id number] [place] [address] 11 Dec, 2017 Allergic rhinitis due to monica rosalina, unspecified seasonality J30.1 and Allergic conjunctivitis of both eyes H10.13 [place] [address] [place] [id number] [place] [address] 10 Dec, 2017 Neuroforaminal stenosis of s jose M99.89 [place] [address] [place] [id number] [address] [place] [address] Dec, Mixed hyperlipidemia E78.2 [place] [address] [place] [id number] [place] [address] 05 Dec, 2017 Abnormal glucose R73.09 ; Ab normal renal ultrasound R93.429 ; Dysuria R30.0 ; Cystitis without hematuria N30.90 ; Hypokalemia E87.6 ; Mixed hyperlipidemia E78.2 and Hematuria, unspecified type R31.9 [place] [address] [place] [id number] [place] [address] Nov, Hypokalemia E87.6 ; Mixed hy perlipidemia E78.2 and Hematuria, unspecified type R31.9 [place] [address] [place] [id number] [place] [address] Nov, [place] [address] [place] [id number] [place] [address], [place] [address] Nov, Hypokalemia E87.6 [facility] [address] [id number] [address] [place] [address] Nov, [facility] [address] [id number] [address] [place] [address] Nov, Abnormal renal ultrasound R9 3.429 [facility] [address] [id number] [address] [place] [address] Nov, Abnormal renal ultrasound R9 3.429 [facility] [address] [id number] [address] [place] [address] Nov, Hematuria, unspecified type R31.9 and Neuroforaminal stenosis of spine M99.89 [place] [address] [place] [id number] [place] [address] Nov, Dysuria R30.0 [place] [address] [id number] [address] [place] [address] Oct, Lateral epicondylitis, right elbow M77.11 [place] [address] [facility] [id number] [address] [place] [address] Oct, Neuroforaminal stenosis of s pine M99.89 ; Visit for TB skin test Z11.1 and Essential hypertension I10 [place] [address] [id number] [address] [place] [address] Oct, [facility] [address] [facility] [id number] [address] [place] [address] Oct, Neuroforaminal stenosis of s pine M99.89 [place] [address] [facility] [id number] [address] [place] [address] Oct, Visit for TB skin test Z11.1 [place] [address] [facility] [id number] [address] [place] [address] 05 Oct, 2017 Cystitis without hematuria N 30.90 [facility] [address] [id number] [address] [place] [address] 28 Sep, 2017 Screening breast examination Z12.39 [place] [address] [id number] [address] [place] [address] 26 Sep, 2017 Dysuria R30.0 and Cystitis w ithout hematuria N30.90 [place] [address] [id number] [address] [place] [address] 14 Sep, 2017 Essential hypertension I10 a nd Neuroforaminal stenosis of spine M99.89 [place] [address] [id number] [address] [place] [address] 04 Sep, 2017 Abnormal glucose R73.09 [place] [address] [facility] [id number] [address] [place] [address] August, Lateral epicondylitis, right elbow M77.11 [place] [address] [facility] [id number] [address] [place] [address] August, Screen for STD (sexually tra nsmitted disease) Z11.3 [place] [address] [facility] [id number] [address] [place] [address] August, Neuroforaminal stenosis of s jose M99.89 ; Mixed hyperlipidemia E78.2 ; Elevated fasting glucose R73.01 ; Screening mammogram, encounter for Z12.31 and Encounter for well woman exam without gynecological exam Z00.00 [place] [address] [facility] [id number] [address] [place] [address] August, Neuroforaminal stenosis of s pine M99.89 [place] [address] [id number] [address] [place] [address] August, Essential hypertension I10 ; Hypokalemia E87.6 and Mixed hyperlipidemia E78.2 [place] [address] [id number] [address] [place] [address] Jul, [place] [address] [facility] [id number] [address] [place] [address] Jul, Neuroforaminal stenosis of s jose M99.89 [facility] [address] [id number] [address] [place] [address] Jul, Lateral epicondylitis, right elbow M77.11 [facility] [address] [id number] [address] [place] [address] Jul, [facility] [address] [id number] [address] [place] [address] Jun, High ankle sprain of right l ower extremity, initial encounter S93.431A [facility] [address] [id number] [address] [place] [address] Jun, Essential hypertension I10 [place] [address] [id number] [address] [place] [address] Jun, [place] [address] [facility] [id number] [address] [place] [address] Jun, [facility] [address] [facility] [id number] [address] [place] [address] Jun, Neuroforaminal stenosis of s jose M99.89 [facility] [address] [facility] [id number] [address] [place] [address] Jun, Pain of right upper extremit y M79.601 and Essential hypertension I10 [facility] [address] [facility] [id number] [address] [place] [address] Jun, [place] [address] [facility] [id number] [address] [place] [address] Jun, Dysuria R30.0 ; Acute cystit is with hematuria N30.01 and Screen for STD (sexually transmitted disease) Z11.3 [place] [address] [id number] [address] [place] [address] May, Chronic pain due to trauma G 89.21 [facility] [address] [facility] [id number] [address] [place] [address] May, Essential hypertension I10 [place] [address] [place] [id number] [place] [address] May, Neuroforaminal stenosis of ayla garcia M99.89 [place] [address] [place] [id number] [place] [address] Apr, Allergic reaction, initial e ncounter T78.40XA [place] [address] [place] [id number] [place] [address] Apr, Low back pain, unspecified b ack pain laterality, unspecified chronicity, with sciatica presence unspecified M54.5 ; Acute cystitis with hematuria N30.01 ; Neuroforaminal stenosis of spine M99.89 ; Bilateral acute serous otitis media, recurrence not specified H65.03 ; Mixed hyperlipidemia E78.2 ; Essential hypertension I10 ; Immunization counseling Z71.89 and Encounter for immunization Z23 [place] [id number] [place] [address] Apr, Neck pain M54.2 [place] [address] [place] [id number] [place] [address] Mar, Neuroforaminal stenosis of ayla garcia M99.89 [place] [address] [place] [id number] [place] [address] Mar, Pharyngitis due to other org anism J02.8 [place] [address] [place] [id number] [place] [address] Feb, Neuroforaminal stenosis of ayla garcia M99.89 [place] [address] [place] [id number] [place] [address] 08 Feb, 2017 UTI (urinary tract infection ) N39.0 [place] [address] [place] [id number] [place] [address] 07 Feb, 2017 Recent urinary tract infecti on Z87.440 ; Neuroforaminal stenosis of spine M99.89 ; Neck pain M54.2 ; Chronic pain due to trauma G89.21 and Recurrent UTI N39.0 [facility] [address] [id number] [address] [place] [address] Feb, [facility] [address] [id number] [address] [place] [address] Jan, Neuroforaminal stenosis of s pine M99.89 [facility] [address] [id number] [address] [place] [address] 28 Dec, 2016 Neuroforaminal stenosis of s pine M99.89 [facility] [address] [id number] [address] [place] [address] 18 Dec, 2016 Acute seasonal allergic rhin itis due to pollen J30.1 [facility] [address] [id number] [address] [place] [address] 08 Dec, 2016 [facility] [address] [id number] [address] [place] [address] 08 Dec, 2016 Acute seasonal allergic rhin itis, unspecified trigger J30.2 ; Allergic conjunctivitis of both eyes H10.13 and Dysfunction of both eustachian tubes H69.83 [facility] [address] [id number] [address] [place] [address] 07 Dec, 2016 [place] [address] [id number] [address] [place] [address] Dec, Nevus D22.9 [facility] [address] [id number] [address] [place] [address] Nov, Chronic pain due to trauma G 89.21 and Neuroforaminal stenosis of spine M99.89 [facility] [address] [id number] [address] [place] [address] Nov, Neuroforaminal stenosis of s pine M99.89 ; Essential hypertension I10 ; Mixed hyperlipidemia E78.2 ; Hypokalemia E87.6 ; Neck pain M54.2 and Nevus D22.9 [facility] [address] [id number] [address] [place] [address] Oct, Neuroforaminal stenosis of s pine M99.89 [facility] [address] [id number] [address] [place] [address] Sep, Neuroforaminal stenosis of s pine M99.89 [facility] [address] [id number] [address] [place] [address] Sep, [facility] [address] [id number] [address] [place] [address] August, [facility] [address] [id number] [address] [place] [address] August, Neck pain M54.2 and Neurofor aminal stenosis of spine M99.89 [facility] [address] [id number] [address] [place] [address] August, Routine gynecological examin ation Z01.419 and Screening breast examination Z12.39 [facility] [address] [id number] [address] [place] [address] Jul, [facility] [address] [id number] [address] [place] [address] Jul, [facility] [address] [id number] [address] [place] [address] Jul, Neuroforaminal stenosis of s pine M99.89 [facility] [address] [id number] [address] [place] [address] Jul, [facility] [address] [id number] [address] [place] [address] Jul, Neuroforaminal stenosis of l umbar 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 [facility] [address] [id number] [address] [place] [address] Jul, [facility] [address] [id number] [address] [place] [address] Jul, [facility] [address] [id number] [address] [place] [address] Jun, Neuroforaminal stenosis of s jose M99.89 [place] [address] [place] [id number] [place] [address] Jun, Uterine leiomyoma, unspecifi ed location D25.9 and Allergic reaction caused by a drug, initial encounter T78.40XA [facility] [address] [place] [id number] [place] [address] Jun, [place] [address] [place] [id number] [place] [address] May, UTI symptoms R39.9 and Pain of right sacroiliac joint M53.3 [place] [id number] [place] [address] May, Neuroforaminal stenosis of ayla garcia M99.89 [place] [address] [place] [id number] [place] [address] May, [place] [address] [address] May, Acute mucoid otitis media of left ear H65.112 and Acute non- recurrent maxillary sinusitis J01.[address] [address] May, Acute bacterial conjunctivit is of both eyes H10.33 ; Left arm pain M79.602 and Hypokalemia E87.6 [place] [address] [place] [id number] [place] [address] Apr, [place] [address] [place] [id number] [place] [address] Apr, Neuroforaminal stenosis of s pine M99.89 ; Neck pain M54.2 ; Chronic pain due to trauma G89.21 ; Mixed hyperlipidemia E78.2 ; Essential hypertension I10 and Hypokalemia E87.6 [place] [address] [place] [id number] [place] [address] Mar, Oral candidiasis B37.0 ; Nathaniel roforaminal stenosis of spine M99.89 ; Neck pain M54.2 and Chronic pain due to trauma G89.21 [facility] [address] [facility] [id number] [address] [place] [address] Feb, [facility] [address] [facility] [id number] [address] [place] [address] Feb, [facility] [address] [facility] [id number] [address] [place] [address] Feb, UTI (urinary tract infection ) N39.0 [facility] [address] [facility] [id number] [address] [place] [address] Feb, Dysuria R30.0 [facility] [address] [facility] [id number] [address] [place] [address] Feb, Dysuria R30.0 [facility] [address] [place] [id number] [place] [address] Feb, Neuroforaminal stenosis of s pine M99.89 ; Neck pain M54.2 ; Essential hypertension I10 ; Chronic pain due to trauma G89.21 ; Dysuria R30.0 ; Abnormal MRI, shoulder R93.8 and Acute cystitis without hematuria N30.00 [facility] [address] [place] [id number] [place] [address] Jan, [facility] [address] [place] [id number] [address] [place] [address] Jan, [facility] [address] [facility] [id number] [address] [place] [address] Jan, [facility] [address] [facility] [id number] [address] [place] [address] Jan, Abnormal MRI R93.8 [facility] [address] [facility] [id number] [address] [place] [address] Dec, [facility] [address] [facility] [id number] [address] [place] [address] 15 Dec, 2015 Acute pain of left shoulder M25.512 [facility] [address] [id number] [address] [place] [address] 09 Dec, 2015 [facility] [address] [id number] [address] [place] [address] 08 Dec, 2015 [facility] [address] [id number] [address] [place] [address] 07 Dec, 2015 Acute pain of left shoulder M25.512 [facility] [address] [id number] [address] [place] [address] 23 Nov, 2015 [facility] [address] [id number] [address] [place] [address] Nov, Neuroforaminal stenosis of s pine M99.89 ; Neck pain M54.2 ; Abnormal mammogram R92.8 ; Essential hypertension I10 and Chronic pain due to trauma G89.21 [facility] [address] [id number] [address] [place] [address] Nov, [facility] [address] [id number] [address] [place] [address] Oct, Acute stress disorder F43.0 [facility] [address] [id number] [address] [place] [address] Oct, [facility] [address] [id number] [address] [place] [address] Oct, [facility] [address] [id number] [address] [place] [address] Oct, [facility] [address] [id number] [address] [place] [address] Sep, [facility] [address] [id number] [address] [place] [address] August, [facility] [address] [id number] [address] [place] [address] Jul, Neuroforaminal stenosis of s pine M99.89 ; Neck pain M54.2 ; Abnormal mammogram R92.8 and Essential hypertension I10 [facility] [address] [id number] [address] [place] [address] Jul, [facility] [address] [id number] [address] [place] [address] Jul, [facility] [address] [id number] [address] [place] [address] Jul, Abnormal mammogram R92.8 [facility] [address] [id number] [address] [place] [address] Jul, [facility] [address] [id number] [address] [place] [address] Jul, UTI (urinary tract infection ) N39.0 [facility] [address] [id number] [address] [place] [address] Jul, Dysuria R30.0 [facility] [address] [id number] [address] [place] [address] Jun, [facility] [address] [id number] [address] [place] [address] Jun, [facility] [address] [id number] [address] [place] [id number] Jun, Hypokalemia E87.6 and Hematu martina R31.9 [facility] [address] [id number] [address] [place] [id number] Jun, Hypokalemia E87.6 [facility] [address] [id number] [address] [place] [id number] Jun, [facility] [address] [id number] [address] [place] [id number] Jun, Hypokalemia E87.6 [facility] [address] [id number] [address] [place] [id number] Jun, Hypokalemia E87.6 [facility] [address] [facility] [id number] [address] [place] [id number] 15 Jun, 2015 Neuroforaminal stenosis of s pine M99.89 ; Hypokalemia E87.6 ; Neck pain M54.2 ; Essential hypertension I10 ; Mixed hyperlipidemia E78.2 and Screening breast examination Z12.39 [facility] [address] [id number] Jun, Dysuria R30.0 ; UTI (urinary tract infection) N39.0 and Hematuria R31.9 [place] [address] [place] [id number] [place] [id number] May, [facility] [address] [id number] 18 May, 2015 High risk sexual behavior Z7 2.51 ; Hypokalemia E87.6 ; Neuroforaminal stenosis of spine M99.89 ; Neck pain M54.2 ; Essential hypertension I10 ; Mixed hyperlipidemia E78.2 ; STD exposure Z20.2 and Concern about STD in female without diagnosis Z71.1 [place] [address] [id number] 16 May, 2015 Neuroforaminal stenosis of s pine M99.89 ; Neck pain M54.2 ; Hypokalemia E87.6 ; Essential hypertension I10 and Mixed hyperlipidemia E78.2 [facility] [address] [place] [id number] [address] [place] [phone] May, [facility] [address] [place] [id number] [address] [place] [address] 08 May, 2015 High risk sexual behavior Z7 2.51 ; STD exposure Z20.2 and Concern about STD in female without diagnosis Z71.1 [facility] [address] [id number] [address] [place] [address] 05 May, 2015 [facility] [address] [id number] [address] [place] [address] Apr, Neuroforaminal stenosis of ayla garcia M99.89 ; Mixed hyperlipidemia E78.2 ; Essential hypertension I10 and Hypokalemia E87.6 [facility] [address] [id number] [address] [place] [address] Mar, [facility] [id number] [place] [address] Mar, Hypokalemia E87.6 [facility] [id number] [place] [address] Mar, Neuroforaminal stenosis of s jose M99.89 ; Mixed hyperlipidemia E78.2 ; Neck pain M54.2 ; Essential hypertension I10 ; Abnormal fasting glucose R73.09 ; Hypokalemia E87.6 and Constipation K59.00 [place] [address] [address] Feb, Neuroforaminal stenosis of ayla garcia M99.89 ; Mixed hyperlipidemia E78.2 ; Neck pain M54.2 ; Essential hypertension I10 ; Abnormal fasting glucose R73.09 ; Hypokalemia E87.6 and Constipation K59.00 [place] [address] [address] Feb, Elevated fasting blood sugar R73.01 [place] [address] [address] Feb, Elevated fasting blood sugar R73.01 [facility] [address] [id number] [address] [place] [address] Feb, Hair loss L65.9 [place] [address] [address] Feb, Sinusitis J32.9 ; Essential hypertension I10 and Hair loss L65.9 [facility] [address] [id number] [address] [place] [address] Jan, [facility] [id number] [place] [address] [place] [address] Jan, Essential hypertension I10 ; Neuroforaminal stenosis of spine M99.89 ; Neck pain M54.2 ; Mixed hyperlipidemia E78.2 and Anxiety F41.9 [facility] [address] [id number] [address] [place] [address] Jan, [facility] [address] [id number] [address] [place] [address] Jan, Mixed hyperlipidemia E78.2 ; Essential (primary) hypertension I10 ; Strain of muscle, fascia and tendon at neck level, subsequent encounter S16.1XXD and Tension-type headache, unspecified, not intractable G44.209 [facility] [address] [id number] [address] [place] [address] Dec, Lumbar back pain 724.2 and N euroforaminal stenosis of spine 724.00 [facility] [address] [id number] [address] [place] [address] Nov, [facility] [address] [id number] [address] [place] [address] Nov, Lumbar back pain 724.2 and N euroforaminal stenosis of spine 724.00 [facility] [address] [id number] [address] [place] [address] Nov, Edema 782.3 ; Lumbar back pa in 724.2 ; Essential hypertension, benign 401.1 ; Hyperlipemia 272.4 ; Neuroforaminal stenosis of spine 724.00 and Post-concussion headache 339.20 [facility] [address] [id number] [address] [place] [address] Nov, [facility] [address] [id number] [address] [place] [address] Nov, [facility] [address] [id number] [address] [place] [address] Oct, Essential hypertension, sheridan gn 401.1 [facility] [address] [id number] [address] [place] [address] Oct, Edema 782.3 ; Lumbar back pa in 724.2 ; Essential hypertension, benign 401.1 ; Hyperlipemia 272.4 ; Neuroforaminal stenosis of spine 724.00 and Post-concussion headache 339.20 [facility] [address] [id number] [address] [place] [address] Oct, [facility] [address] [id number] [address] [place] [address] Oct, Edema 782.3 [place] [address] [id number] [address] [place] [address] Oct, Lumbar back pain 724.2 [place] [address] [facility] [id number] [address] [place] [address] Oct, Cervicalgia 723.1 ; Lumbar b ack pain 724.2 and High risk medication use V58.69 [place] [address] [id number] [address] [place] [address] Sep, [place] [address] [id number] [address] [place] [address] Sep, Lumbar strain 847.2 [place] [address] [facility] [id number] [address] [place] [address] August, Edema 782.3 and Eustachian t ube dysfunction 381.81 [place] [address] [id number] [address] [place] [address] August, [place] [address] [facility] [id number] [address] [place] [address] August, Eustachian tube dysfunction 381.81 [place] [address] [facility] [id number] [address] [place] [address] Jul, Otalgia 388.70 and Otitis me jonathon 382.9 [place] [address] [facility] [id number] [address] [place] [address] Jul, [facility] [address] [id number] [address] [place] [address], [place] [address] 28 Jul, 2014 [facility] [address] [id number] [address] [place] [address], [place] [address] 28 Jul, 2014 [facility] [address] [id number] [address] [place] [address], [place] [address] 14 Jul, 2014 [facility] [address] [id number] [address] [place] [address], [place] [address] 13 Jul, 2014 [facility] [address] [id number] [address] [place] [address], [place] [address] 27 Jun, 2014 [facility] [address] [id number] [address] [place] [address], [place] [address] 27 Jun, 2014 [facility] [address] [id number] [address] [place] [address], [place] [address] 16 Jun, 2014 [facility] [address] [id number] [address] [place] [address], [place] [address] May, 2014 [facility] [address] [id number] [address] [place] [address], [place] [address] May, [facility] [address] [id number] [address] [place] [address], [place] [address] 23 May, 2014 [facility] [address] [id number] [address] [place] [address], [place] [address] May, 2014 [facility] [address] [id number] [address] [place] [address], [place] [address] May, 2014 [facility] [address] [id number] [address] [place] [address], [place] [address] May, 2014 [facility] [address] [id number] [address] [place] [address], [place] [address] 09 May, 2014 [facility] [address] [id number] [address] [place] [address], [place] [address] 05 May, 2014 [facility] [address] [id number] [address] [place] [address], [place] [address] May, [facility] [place] [address] [id number] [address] [place] [address], [place] [address] May, [facility] [place] [address] [id number] [address] [place] [address], [place] [address] Apr, [facility] [place] [address] [id number] [address] [place] [address], [place] [address] Apr, [facility] [address] [id number] [address] [place] [address], [place] [address] Apr, [facility] [address] [id number] [address] [place] [address], [place] [address] Apr, [facility] [address] [id number] [address] [place] [address], [place] [address] Apr, [facility] [address] [id number] [address] [place] [address], [place] [address] Apr, [facility] [address] [id number] [address] [place] [address], [place] [address] Apr, [facility] [place] [address] [id number] [address] [place] [address], [place] [address] Apr, [facility] [address] [id number] [address] [place] [address], [place] [address] Apr, [facility] [address] [id number] [address] [place] [address], [place] [address] Apr, [facility] [address] [id number] [address] [place] [address], [place] [address] Apr, [facility] [address] [id number] [address] [place] [address], [place] [address] Apr, [facility] [address] [id number] [address] [place] [address], [place] [address] Apr, [facility] [address] [id number] [address] [place] [address], [place] [address] Apr, [facility] [address] [id number] [address] [place] [address], [place] [address] Apr, [facility] [address] [id number] [address] [place] [address], [place] [address] Mar, [facility] [address] [id number] [address] [place] [address], [place] [address] Mar, [facility] [address] [id number] [address] [place] [address], [place] [address] Mar, [facility] [address] [id number] [address] [place] [address], [place] [address] Mar, [facility] [address] [id number] [address] [place] [address], [place] [address] Feb, [facility] [address] [id number] [address] [place] [address], [place] [address] Feb, [facility] [address] [id number] [address] [place] [address], [place] [address] Feb, [facility] [address] [id number] [address] [place] [address], [place] [address] Feb, [facility] [address] [id number] [address] [place] [address], [place] [address] Jan, [facility] [address] [id number] [address] [place] [address], [place] [address] Jan, [facility] [address] [id number] [address] [place] [address] Jan, [facility] [address] [id number] [address] [place] [address], [place] [address] Jan, [facility] [address] [id number] [address] [place] [address], [place] [address] Jan, [facility] [address] [id number] [address] [place] [address], [place] [address] Jan, [facility] [address] [id number] [address] [place] [address] [place] [address] Jan, [facility] [address] [id number] [address] [place] [address], [place] [address] Jan, [facility] [address] [id number] [address] [place] [address], [place] [address] Dec, [facility] [address] [id number] [address] [place] [address], [place] [address] Dec, [facility] [address] [id number] [address] [place] [address], [place] [address] Dec, [facility] [address] [id number] [address] [place] [address], [place] [address] Dec, [facility] [address] [id number] [address] [place] [address], [place] [address] Oct, [facility] [address] [id number] [address] [place] [address], [place] [address] Oct, [facility] [address] [id number] [address] [place] [address], [place] [address] Oct, [facility] [address] [id number] [address] [place] [address], [place] [address] Oct, [facility] [address] [id number] [address] [place] [address], [place] [address] Oct, [facility] [address] [id number] [address] [place] [address], [place] [address] Oct, [facility] [address] [id number] [address] [place] [address], [place] [address] Oct, [facility] [address] [id number] [address] [place] [address], [place] [address] Oct, [facility] [address] [id number] [address] [place] [address], [place] [address] Sep, [facility] [address] [id number] [address] [place] [address], [place] [address] Sep, [facility] [address] [id number] [facility] [address] Sep, [facility] [address] [id number] [facility] [address] Sep, [facility] [address] [id number] [address] [place] [address], [place] [address] Sep, [facility] [address] [id number] [address] [place] [address], [place] [address] Sep, [facility] [address] [id number] [address] [place] [address], [place] [address] Sep, [facility] [address] [id number] [address] [place] [address], [place] [address] Sep, [facility] [address] [id number] [address] [place] [address], [place] [address] Sep, [facility] [address] [id number] [address] [place] [address], [place] [address] Sep, [facility] [address] [id number] [address] [place] [address], [place] [address] August, [facility] [address] [id number] [address] [place] [address], [place] [address] August, [facility] [address] [id number] [address] [place] [address], [place] [address] August, [facility] [address] [id number] [address] [place] [address], [place] [address] August, [facility] [address] [id number] [address] [place] [address], [place] [address] August, [facility] [address] [id number] [address] [place] [address], [place] [address] August, [facility] [address] [id number] [address] [place] [address], [place] [address] August, [facility] [address] [id number] [address] [place] [address], [place] [address] August, [facility] [address] [id number] [facility] [address] August, [facility] [address] [id number] [address] [place] [address], [place] [address] August, [facility] [address] [id number] [address] [place] [address], [place] [address] August, [facility] [address] [id number] [address] [place] [address], [place] [address] August, [facility] [address] [id number] [address] [place] [address], [place] [address] Jul, [facility] [address] [id number] [address] [place] [address], [place] [address] Jul, [facility] [address] [id number] [address] [place] [address], [place] [address] Jul, [facility] [address] [id number] [address] [place] [address], [place] [address] Jul, [facility] [address] [id number] [address] [place] [address], [place] [address] Jul, [facility] [address] [id number] [address] [place] [address], [place] [address] Jul, [facility] [address] [id number] [address] [place] [address], [place] [address] Jun, [facility] [address] [id number] [address] [place] [address], [place] [address] Jun, [facility] [address] [id number] [address] [place] [address], [place] [address] May, [facility] [address] [id number] [address] [place] [address], [place] [address] May, [facility] [address] [id number] [address] [place] [address], [place] [address] Apr, [facility] [address] [id number] [address] [place] [address], [place] [address] Apr, [facility] [place] [address] [id number] [address] [place] [address], [place] [address] Apr, [facility] [address] [id number] [address] [place] [address], [place] [address] Apr, [facility] [address] [id number] [address] [place] [address], [place] [address] Apr, [facility] [place] [address] [id number] [address] [place] [address], [place] [address] Apr, [facility] [address] [id number] [address] [place] [address], [place] [address] Apr, [facility] [address] [id number] [address] [place] [address], [place] [address] Apr, [facility] [address] [id number] [address] [place] [address], [place] [address] Apr, [facility] [address] [id number] [address] [place] [address], [place] [address] Apr, [facility] [address] [id number] [address] [place] [address], [place] [address] Apr, [facility] [address] [id number] [address] [place] [address], [place] [address] Apr, [facility] [address] [id number] [address] [place] [address], [place] [address] Apr, [facility] [address] [id number] [address] [place] [address], [place] [address] Mar, [facility] [address] [id number] [address] [place] [address], [place] [address] Mar, [facility] [address] [id number] [address] [place] [address], [place] [address] Mar, [facility] [address] [id number] [address] [place] [address], [place] [address] Mar, [facility] [address] [id number] [address] [place] [address], [place] [address] Feb, [facility] [address] [id number] [address] [place] [address], [place] [address] Feb, [facility] [address] [id number] [address] [place] [address], [place] [address] Feb, [facility] [address] [id number] [address] [place] [address], [place] [address] Feb, [facility] [address] [id number] [address] [place] [address], [place] [address] Jan, [facility] [address] [id number] [address] [place] [address], [place] [address] Jan, [facility] [address] [id number] [address] [place] [address], [place] [address] Jan, [facility] [address] [id number] [address] [place] [address] Jan, [facility] [address] [id number] [address] [place] [address], [place] [address] Jan, [facility] [address] [id number] [address] [place] [address] Jan, [facility] [address] [id number] [address] [place] [address] Jan, [facility] [address] [id number] [address] [place] [address] Jan, [facility] [address] [id number] [address] [place] [address] Jan, [facility] [address] [id number] [address] [place] [id number] 26 Dec, 2012 [facility] [address] [id number] [address] [place] [id number] 16 Dec, 2012 [facility] [address] [id number] [address] [place] [id number] 16 Dec, 2012 [facility] [place] [address] [id number] [address] [place] [address], [place] [address] Dec, [facility] [address] [id number] [address] [place] [address], [place] [address] Nov, [facility] [address] [id number] [address] [place] [address], [place] [address] Nov, [facility] [address] [id number] [address] [place] [address], [place] [address] Nov, [facility] [address] [id number] [address] [place] [address], [place] [address] Nov, [facility] [address] [id number] [address] [place] [address], [place] [address] Oct, [facility] [address] [id number] [address] [place] [address], [place] [address] Sep, [facility] [address] [id number] [address] [place] [address], [place] [address] August, [facility] [address] [id number] [address] [place] [address], [place] [address] August, [facility] [address] [id number] [address] [place] [address], [place] [address] August, [facility] [address] [id number] [address] [place] [address], [place] [address] August, [facility] [address] [id number] [address] [place] [address], [place] [address] August, [facility] [address] [id number] [address] [place] [address], [place] [address] August, [facility] [address] [id number] [address] [place] [address], [place] [address] August, [facility] [address] [id number] [address] [place] [address], [place] [address] August, [facility] [address] [id number] [address] [place] [address], [place] [address] August, [facility] [address] [id number] [address] [place] [address], [place] [address] August, [facility] [address] [id number] [address] [place] [address], [place] [address] August, [facility] [address] [id number] [address] [place] [address], [place] [address] August, [facility] [address] [id number] [address] [place] [address], [place] [address] Jul, [facility] [address] [id number] [address] [place] [address], [place] [address] Jul, [facility] [address] [id number] [address] [place] [address], [place] [address] Jul, [facility] [address] [id number] [address] [place] [address], [place] [address] Jul, [facility] [address] [id number] [address] [place] [address], [place] [address] Jul, [facility] [address] [id number] [address] [place] [address], [place] [address] Jul, [facility] [address] [id number] [address] [place] [address], [place] [address] Jul, [facility] [facility] [address] [id number] [address] [place] [address], [place] [address] Jul, [facility] [address] [id number] [address] [place] [address], [place] [address] Jul, [facility] [address] [id number] [address] [place] [address], [place] [address] Jul, [facility] [address] [id number] [address] [place] [address], [place] [address] Jul, [facility] [address] [id number] [address] [place] [address], [place] [address] Jun, [facility] [address] [id number] [address] [place] [address], [place] [address] Jun, [facility] [address] [id number] [address] [place] [address], [place] [address] Jun, [facility] [address] [id number] [address] [place] [address], [place] [address] Jun, [facility] [address] [id number] [address] [place] [address], [place] [address] May, [facility] [address] [id number] [address] [place] [address], [place] [address] May, [facility] [address] [id number] [address] [place] [address], [place] [address] May, [facility] [address] [id number] [address] [place] [address], [place] [address] May, [facility] [address] [id number] [address] [place] [address], [place] [address] May, [facility] [address] [id number] [address] [place] [address], [place] [address] May, [facility] [address] [id number] [address] [place] [address], [place] [address] Apr, [facility] [address] [id number] [address] [place] [address], [place] [address] Apr, [facility] [address] [id number] [address] [place] [address], [place] [address] 30 Apr, 2012 [facility] [address] [id number] [address] [place] [address], [place] [address] Apr, [facility] [address] [id number] [address] [place] [address], [place] [address] Mar, [facility] [address] [id number] [address] [place] [address], [place] [address] Mar, [facility] [address] [id number] [address] [place] [address], [place] [address] 14 Mar, 2012 [facility] [address] [id number] [address] [place] [address], [place] [address] 14 Mar, 2012 [facility] [address] [id number] [address] [place] [address], [place] [address] Mar, [facility] [address] [id number] [address] [place] [address], [place] [address] Mar, [facility] [address] [id number] [address] [place] [address], [place] [address] Mar, [facility] [address] [id number] [address] [place] [address], [place] [address] Feb, [facility] [address] [id number] [address] [place] [address], [place] [address] Feb, [facility] [address] [id number] [address] [place] [address], [place] [address] Feb, [facility] [address] [id number] [address] [place] [address], [place] [address] Feb, [facility] [address] [id number] [address] [place] [address], [place] [address] Jan, [facility] [address] [id number] [address] [place] [address], [place] [address] Jan, [facility] [address] [id number] [address] [place] [address], [place] [address] Jan, [facility] [address] [id number] [address] [place] [address], [place] [address] Jan, [facility] [address] [id number] [address] [place] [address], [place] [address] Jan, [facility] [address] [id number] [address] [place] [address], [place] [address] Jan, [facility] [address] [id number] [address] [place] [address], [place] [address] Dec, [facility] [address] [id number] [address] [place] [address], [place] [address] Dec, [facility] [address] [id number] [address] [place] [address], [place] [address] Nov, [facility] [address] [id number] [address] [place] [address], [place] [address] Sep, [facility] [address] [id number] [address] [place] [address], [place] [address] August, [facility] [address] [id number] [address] [place] [address], [place] [address] August, [facility] [address] [id number] [address] [place] [address], [place] [address] August, [facility] [address] [id number] [address] [place] [address], [place] [address] August, [facility] [address] [id number] [address] [place] [address], [place] [address] August, [facility] [address] [id number] [address] [place] [address], [place] [address] Jun, [facility] [address] [id number] [address] [place] [address], [place] [address] Jun, [facility] [address] [id number] [address] [place] [address], [place] [address] Apr, [facility] [address] [id number] [address] [place] [address], [place] [address] Apr, [facility] [address] [id number] [address] [place] [address], [place] [address] Mar, [facility] [address] [id number] [address] [place] [address], [place] [address] Feb, [facility] [address] [id number] [address] [place] [address], [place] [address] Feb, [facility] [address] [id number] [address] [place] [address] 14 Feb, 2011 [facility] [address] [id number] [address] [place] [address] 17 Jan, 2011 [facility] [address] [id number] [address] [place] [address] 15 Jan, 2011 [facility] [address] [id number] [address] [place] [id number] 15 Jan, 2011 [facility] [address] [id number] [address] [place] [address] 14 Jan, 2011 [facility] [address] [id number] [address] [place] [address] May, [facility] [address] [id number] [address] [place] [address] Mar, [facility] [address] [id number] [address] [place] [address] Oct, [facility] [address] [id number] [address] [place] [address] Sep, [facility] [address] [id number] [address] [place] [address] Mar, [facility] [address] [id number] [address] [place] [address] Jan, [facility] [address] [id number] [address] [place] [address] Jan, [facility] [address] [id number] [address] [place] [address] May, IMMUNIZATIONS No Known Immunizations SOCIAL HISTORY Never Assessed REASON FOR VISIT EMR-[facility] PLAN OF CARE VITAL SIGNS MEDICATIONS No [...]
--- OUTSIDE RECORDS SUMMARY | 2019-11-23 06:02 | XMS REPORT ---
Author Author Liana Coe Doctor Organization [facility] Address Unknown Phone Unavailable Care Team Providers [employer] Journalist Name Role Phone Migration, Doctor Unavailable Unavailable PROBLEMS Type Condition ICD9-CM Code GLI85-BB Code Onset Dates Condition S tatus SNOMED Code Problem Hematuria, unspecified type R31.9 Ac tive 54199919 Problem Abnormal renal ultrasound R93.429 Acti ve [id number] Problem Anxiety F41.9 Active 08208677 Problem Hypokalemia E87.6 Active 47821340 Problem Abnormal glucose R73.09 Active 102 056119 Problem Chronic pain due to trauma G89.21 Act juanis 677778346 Problem Neuroforaminal stenosis of spine M99.89 Active 410405087077 Problem Neck pain M54.2 Active 82923157 Problem Essential hypertension I10 Active 88284966 Problem Mixed hyperlipidemia E78.2 Active [id number] ALLERGIES No Information ENCOUNTERS Encounter Location Date Diagnosis [place] [facility] [id number] [place] [address] Jul, Neuroforaminal stenosis of s pine M99.89 and Essential hypertension I10 [facility] [address] [facility] [id number] [place] [address] May, Neuroforaminal stenosis of s pine M99.89 [facility] [address] [facility] [id number] [place] [address] May, [facility] [address] [facility] [id number] [place] [address] May, Congestion of nasal sinus R0 9.81 [facility] [address] [facility] [id number] [place] [address] May, [facility] [address] [facility] [id number] [place] [address] Apr, Neuroforaminal stenosis of s pine M99.89 [facility] [address] [id number] [address] [place] [address] Apr, Neuroforaminal stenosis of s pine M99.89 and Chronic pain due to trauma G89.21 [facility] [address] [id number] [address] [place] [address] Mar, UTI (urinary tract infection ) N39.0 [facility] [address] [id number] [address] [place] [address] Mar, Vertigo R42 [facility] [address] [id number] [address] [place] [address] Mar, Neuroforaminal stenosis of s jose M99.89 [facility] [address] [id number] [address] [place] [address] Feb, Extensor tendon disruption M 67.89 [facility] [address] [id number] [address] [place] [address] Feb, Neuroforaminal stenosis of ayla garcia M99.89 and High risk medication use Z79.899 [facility] [address] [id number] [address] [place] [address] Jan, Hypokalemia E87.6 [facility] [address] [id number] [address] [place] [address] Jan, Flank pain R10.9 and Acute r ight-sided low back pain without sciatica M54.5 [facility] [address] [id number] [address] [place] [address] Jan, Hypokalemia E87.6 [facility] [address] [id number] [address] [place] [address] Jan, [facility] [address] [id number] [address] [place] [address] Jan, URI, acute J06.9 [facility] [address] [address] 05 Jan, 2018 Neuroforaminal stenosis of s jose M99.89 [place] [address] [address] 13 Dec, 2017 Lateral epicondylitis, right elbow M77.11 [place] [address] [address] 11 Dec, 2017 Allergic rhinitis due to monica rosalina, unspecified seasonality J30.1 and Allergic conjunctivitis of both eyes H10.13 [place] [address] [address] 10 Dec, 2017 Neuroforaminal stenosis of s jose M99.89 [place] [address] [address] 06 Dec, 2017 Mixed hyperlipidemia E78.2 [place] [address] [address] 05 Dec, 2017 Abnormal glucose R73.09 ; Ab normal renal ultrasound R93.429 ; Dysuria R30.0 ; Cystitis without hematuria N30.90 ; Hypokalemia E87.6 ; Mixed hyperlipidemia E78.2 and Hematuria, unspecified type R31.9 [place] [address] [address] Nov, Hypokalemia E87.6 ; Mixed hy perlipidemia E78.2 and Hematuria, unspecified type R31.9 [place] [address] [address] Nov, [place] [address] [address] Nov, Hypokalemia E87.6 [place] [address] [address] Nov, [place] [address] [address] Nov, Abnormal renal ultrasound R9 3.429 [facility] [address] [id number] [address] [place] [address] 16 Nov, 2017 Abnormal renal ultrasound R9 3.429 [facility] [address] [id number] [address] [place] [address] 09 Nov, 2017 Hematuria, unspecified type R31.9 and Neuroforaminal stenosis of spine M99.89 [facility] [address] [id number] [address] [place] [address] Nov, Dysuria R30.0 [place] [address] [id number] [address] [place] [address] Oct, Lateral epicondylitis, right elbow M77.11 [place] [address] [id number] [address] [place] [address] Oct, Neuroforaminal stenosis of s pine M99.89 ; Visit for TB skin test Z11.1 and Essential hypertension I10 [place] [address] [id number] [address] [place] [address] Oct, [place] [address] [id number] [address] [place] [address] Oct, Neuroforaminal stenosis of s pine M99.89 [place] [address] [id number] [address] [place] [address] Oct, Visit for TB skin test Z11.1 [place] [address] [id number] [address] [place] [address] Oct, Cystitis without hematuria N 30.90 [place] [address] [id number] [address] [place] [address] Sep, Screening breast examination Z12.39 [place] [address] [id number] [address] [place] [address] Sep, Dysuria R30.0 and Cystitis w ithout hematuria N30.90 [place] [address] [id number] [address] [place] [address] 14 Sep, 2017 Essential hypertension I10 a nd Neuroforaminal stenosis of spine M99.89 [place] [address] [id number] [address] [place] [address] 04 Sep, 2017 Abnormal glucose R73.09 [place] [address] [id number] [address] [place] [address] August, Lateral epicondylitis, right elbow M77.11 [place] [address] [id number] [address] [place] [address] August, Screen for STD (sexually tra nsmitted disease) Z11.3 [place] [address] [id number] [address] [place] [address] August, Neuroforaminal stenosis of s pine M99.89 ; Mixed hyperlipidemia E78.2 ; Elevated fasting glucose R73.01 ; Screening mammogram, encounter for Z12.31 and Encounter for well woman exam without gynecological exam Z00.00 [place] [address] [id number] [address] [place] [address] August, Neuroforaminal stenosis of s pine M99.89 [place] [address] [id number] [address] [place] [address] August, Essential hypertension I10 ; Hypokalemia E87.6 and Mixed hyperlipidemia E78.2 [place] [address] [id number] [address] [place] [address] Jul, [place] [address] [id number] [address] [place] [address] Jul, Neuroforaminal stenosis of s pine M99.89 [place] [address] [id number] [address] [place] [address] Jul, Lateral epicondylitis, right elbow M77.11 [place] [address] [id number] [address] [place] [address] Jul, [place] [address] [place] [id number] [address] [place] [address] Jun, High ankle sprain of right l ower extremity, initial encounter S93.431A [place] [address] [place] [id number] [address] [place] [address] Jun, Essential hypertension I10 [place] [address] [place] [id number] [address] [place] [address] Jun, [place] [address] [place] [id number] [address] [place] [address] Jun, [place] [address] [id number] [place] [address] Jun, Neuroforaminal stenosis of s pine M99.89 [place] [address] [address] Jun, Pain of right upper extremit y M79.601 and Essential hypertension I10 [place] [address] [place] [address] Jun, [place] [address] [address] Jun, Dysuria R30.0 ; Acute cystit is with hematuria N30.01 and Screen for STD (sexually transmitted disease) Z11.3 [place] [address] [place] [address] May, Chronic pain due to trauma G 89.21 [place] [address] [facility] [id number] [place] [address] May, Essential hypertension I10 [place] [address] [facility] [id number] [place] [address] May, Neuroforaminal stenosis of s pine M99.89 [place] [address] [place] [id number] [address] [place] [address] Apr, Allergic reaction, initial e ncounter T78.40XA [place] [address] [id number] [address] [place] [address] Apr, Low back pain, unspecified b ack pain laterality, unspecified chronicity, with sciatica presence unspecified M54.5 ; Acute cystitis with hematuria N30.01 ; Neuroforaminal stenosis of spine M99.89 ; Bilateral acute serous otitis media, recurrence not specified H65.03 ; Mixed hyperlipidemia E78.2 ; Essential hypertension I10 ; Immunization counseling Z71.89 and Encounter for immunization Z23 [facility] [address] [id number] [address] [place] [address] 08 Apr, 2017 Neck pain M54.2 [place] [address] [facility] [id number] [place] [address] Mar, Neuroforaminal stenosis of s jose M99.89 [place] [address] [facility] [id number] [place] [address] Mar, Pharyngitis due to other org anism J02.8 [place] [address] [id number] [address] [place] [address] Feb, Neuroforaminal stenosis of s jose M99.89 [place] [address] [facility] [id number] [place] [address] Feb, UTI (urinary tract infection ) N39.0 [place] [address] [id number] [address] [place] [address] Feb, Recent urinary tract infecti on Z87.440 ; Neuroforaminal stenosis of spine M99.89 ; Neck pain M54.2 ; Chronic pain due to trauma G89.21 and Recurrent UTI N39.0 [place] [address] [id number] [address] [place] [address] Feb, [place] [address] [id number] [address] [place] [address] Jan, Neuroforaminal stenosis of s pine M99.89 [place] [address] [id number] [address] [place] [address] Dec, Neuroforaminal stenosis of s pine M99.89 [facility] [address] [facility] [id number] [place] [address] Dec, Acute seasonal allergic rhin itis due to pollen J30.1 [facility] [address] [facility] [id number] [place] [address] Dec, [facility] [address] [facility] [id number] [place] [address] 08 Dec, 2016 Acute seasonal allergic rhin itis, unspecified trigger J30.2 ; Allergic conjunctivitis of both eyes H10.13 and Dysfunction of both eustachian tubes H69.83 [place] [address] [facility] [id number] [place] [address] Dec, [place] [address] [facility] [id number] [place] [address] Dec, Nevus D22.9 [place] [address] [facility] [id number] [place] [address] Nov, Chronic pain due to trauma G 89.21 and Neuroforaminal stenosis of spine M99.89 [place] [address] [facility] [id number] [place] [address] Nov, Neuroforaminal stenosis of s pine M99.89 ; Essential hypertension I10 ; Mixed hyperlipidemia E78.2 ; Hypokalemia E87.6 ; Neck pain M54.2 and Nevus D22.9 [facility] [address] [id number] [address] [place] [address] Oct, Neuroforaminal stenosis of s pine M99.89 [place] [address] [facility] [id number] [place] [address] Sep, Neuroforaminal stenosis of s pine M99.89 [facility] [address] [facility] [id number] [place] [address] Sep, [facility] [address] [id number] [address] [place] [address] August, [facility] [address] [id number] [address] [place] [address] August, Neck pain M54.2 and Neurofor aminal stenosis of spine M99.89 [facility] [address] [id number] [address] [place] [address] August, Routine gynecological examin ation Z01.419 and Screening breast examination Z12.39 [facility] [address] [id number] [address] [place] [address] Jul, [facility] [address] [id number] [address] [place] [address] Jul, [facility] [address] [id number] [address] [place] [address] Jul, Neuroforaminal stenosis of s pine M99.89 [facility] [address] [id number] [address] [place] [address] Jul, [facility] [address] [id number] [address] [place] [address] Jul, Neuroforaminal stenosis of l umbar 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 [facility] [address] [id number] [address] [place] [address] Jul, [facility] [address] [id number] [address] [place] [address] Jul, [facility] [address] [id number] [address] [place] [address] Jun, Neuroforaminal stenosis of s pine M99.89 [facility] [address] [id number] [address] [place] [address] Jun, Uterine leiomyoma, unspecifi ed location D25.9 and Allergic reaction caused by a drug, initial encounter T78.40XA [facility] [address] [id number] [address] [place] [address] Jun, [place] [address] [id number] [address] [place] [address] May, UTI symptoms R39.9 and Pain of right sacroiliac joint M53.3 [place] [address] [id number] [address] [place] [address] May, Neuroforaminal stenosis of s pine M99.89 [place] [address] [id number] [address] [place] [address] May, [place] [address] [facility] [id number] [place] [address] May, Acute mucoid otitis media of left ear H65.112 and Acute non- recurrent maxillary sinusitis J01.00 [place] [address] [facility] [id number] [place] [address] May, Acute bacterial conjunctivit is of both eyes H10.33 ; Left arm pain M79.602 and Hypokalemia E87.6 [place] [address] [facility] [id number] [place] [address] Apr, [place] [address] [place] [id number] [address] [place] [address] Apr, Neuroforaminal stenosis of s pine M99.89 ; Neck pain M54.2 ; Chronic pain due to trauma G89.21 ; Mixed hyperlipidemia E78.2 ; Essential hypertension I10 and Hypokalemia E87.6 [place] [address] [id number] [address] [place] [address] Mar, Oral candidiasis B37.0 ; Nathaniel roforaminal stenosis of spine M99.89 ; Neck pain M54.2 and Chronic pain due to trauma G89.21 [place] [facility] [id number] [place] [address] Feb, [place] [address] [facility] [id number] [place] [address] Feb, [facility] [address] [id number] [address] [place] [address] Feb, UTI (urinary tract infection ) N39.0 [facility] [address] [id number] [address] [place] [address] 09 Feb, 2016 Dysuria R30.0 [facility] [address] [id number] [address] [place] [address] 08 Feb, 2016 Dysuria R30.0 [facility] [address] [id number] [address] [place] [address] Feb, Neuroforaminal stenosis of s pine M99.89 ; Neck pain M54.2 ; Essential hypertension I10 ; Chronic pain due to trauma G89.21 ; Dysuria R30.0 ; Abnormal MRI, shoulder R93.8 and Acute cystitis without hematuria N30.00 [facility] [address] [id number] [address] [place] [address] Jan, [facility] [address] [id number] [address] [place] [address] Jan, [facility] [address] [id number] [address] [place] [address] Jan, [facility] [address] [id number] [address] [place] [address] Jan, Abnormal MRI R93.8 [facility] [address] [id number] [address] [place] [address] 29 Dec, 2015 [facility] [address] [id number] [address] [place] [address] 15 Dec, 2015 Acute pain of left shoulder M25.512 [facility] [address] [id number] [address] [place] [address] Dec, [facility] [address] [id number] [address] [place] [address] Dec, [facility] [address] [id number] [address] [place] [address] 07 Dec, 2015 Acute pain of left shoulder M25.512 [facility] [address] [id number] [address] [place] [address] Nov, [facility] [address] [id number] [address] [place] [address] 16 Nov, 2015 Neuroforaminal stenosis of s pine M99.89 ; Neck pain M54.2 ; Abnormal mammogram R92.8 ; Essential hypertension I10 and Chronic pain due to trauma G89.21 [facility] [address] [id number] [address] [place] [address] Nov, [facility] [address] [id number] [address] [place] [address] Oct, Acute stress disorder F43.0 [facility] [address] [id number] [address] [place] [address] Oct, [facility] [address] [id number] [address] [place] [address] Oct, [facility] [address] [id number] [address] [place] [address] Oct, [facility] [address] [id number] [address] [place] [address] Sep, [facility] [address] [id number] [address] [place] [address] August, [facility] [address] [id number] [address] [place] [address] Jul, Neuroforaminal stenosis of s pine M99.89 ; Neck pain M54.2 ; Abnormal mammogram R92.8 and Essential hypertension I10 [facility] [address] [id number] [address] [place] [address] Jul, [facility] [address] [id number] [address] [place] [address] Jul, [facility] [address] [id number] [address] [place] [address] Jul, Abnormal mammogram R92.8 [facility] [address] [facility] [id number] [place] [address] Jul, [facility] [address] [facility] [id number] [place] [address] Jul, UTI (urinary tract infection ) N39.0 [facility] [address] [facility] [id number] [place] [address] Jul, Dysuria R30.0 [facility] [address] [facility] [id number] [place] [address] Jun, [facility] [address] [facility] [id number] [place] [address] Jun, [facility] [address] [place] [id number] [address] [place] [address] Jun, Hypokalemia E87.6 and Hematu martina R31.9 [facility] [address] [facility] [id number] [place] [address] Jun, Hypokalemia E87.6 [facility] [address] [facility] [id number] [place] [address] Jun, [facility] [id number] [place] [id number] Jun, Hypokalemia E87.6 [facility] [address] [facility] [id number] [place] [id number] 18 Jun, 2015 Hypokalemia E87.6 [facility] [address] [place] [id number] [place] [id number] 15 Jun, 2015 Neuroforaminal stenosis of s pine M99.89 ; Hypokalemia E87.6 ; Neck pain M54.2 ; Essential hypertension I10 ; Mixed hyperlipidemia E78.2 and Screening breast examination Z12.39 [facility] [address] [place] [id number] [place] [id number] Jun, Dysuria R30.0 ; UTI (urinary tract infection) N39.0 and Hematuria R31.9 [facility] [address] [place] [id number] [place] [id number] May, [facility] [address] [place] [id number] [place] [id number] May, High risk sexual behavior Z7 2.51 ; Hypokalemia E87.6 ; Neuroforaminal stenosis of spine M99.89 ; Neck pain M54.2 ; Essential hypertension I10 ; Mixed hyperlipidemia E78.2 ; STD exposure Z20.2 and Concern about STD in female without diagnosis Z71.1 [facility] [address] [place] [id number] [place] [id number] 16 May, 2015 Neuroforaminal stenosis of s pine M99.89 ; Neck pain M54.2 ; Hypokalemia E87.6 ; Essential hypertension I10 and Mixed hyperlipidemia E78.2 [facility] [address] [id number] May, [facility] [address] [place] [id number] [place] [phone] 08 May, 2015 High risk sexual behavior Z7 2.51 ; STD exposure Z20.2 and Concern about STD in female without diagnosis Z71.1 [facility] [address] [place] [phone] May, [facility] [address] [place] [id number] [place] [id number] Apr, Neuroforaminal stenosis of s pine M99.89 ; Mixed hyperlipidemia E78.2 ; Essential hypertension I10 and Hypokalemia E87.6 [facility] [address] [facility] [id number] [place] [id number] Mar, [facility] [address] [address] [address] Mar, Hypokalemia E87.6 [facility] [id number] [place] [address] Mar, Neuroforaminal stenosis of s pine M99.89 ; Mixed hyperlipidemia E78.2 ; Neck pain M54.2 ; Essential hypertension I10 ; Abnormal fasting glucose R73.09 ; Hypokalemia E87.6 and Constipation K59.00 [place] [address] [address] Feb, Neuroforaminal stenosis of s pine M99.89 ; Mixed hyperlipidemia E78.2 ; Neck pain M54.2 ; Essential hypertension I10 ; Abnormal fasting glucose R73.09 ; Hypokalemia E87.6 and Constipation K59.00 [place] [address] [address] Feb, Elevated fasting blood sugar R73.01 [place] [address] [address] Feb, Elevated fasting blood sugar R73.01 [place] [address] [address] Feb, Hair loss L65.9 [place] [address] [address] Feb, Sinusitis J32.9 ; Essential hypertension I10 and Hair loss L65.9 [place] [id number] [place] [address] Jan, [place] [id number] [place] [address] Jan, Essential hypertension I10 ; Neuroforaminal stenosis of spine M99.89 ; Neck pain M54.2 ; Mixed hyperlipidemia E78.2 and Anxiety F41.9 [facility] [id number] [address] [place] [address] Jan, [place] [address] [place] [id number] [place] [address] Jan, Mixed hyperlipidemia E78.2 ; Essential (primary) hypertension I10 ; Strain of muscle, fascia and tendon at neck level, subsequent encounter S16.1XXD and Tension-type headache, unspecified, not intractable G44.209 [facility] [address] [id number] [address] [place] [address] Dec, Lumbar back pain 724.2 and N euroforaminal stenosis of spine 724.00 [place] [address] [id number] [address] [place] [address] Nov, [place] [address] [id number] [address] [place] [address] Nov, Lumbar back pain 724.2 and N euroforaminal stenosis of spine 724.00 [place] [address] [id number] [address] [place] [address] Nov, Edema 782.3 ; Lumbar back pa in 724.2 ; Essential hypertension, benign 401.1 ; Hyperlipemia 272.4 ; Neuroforaminal stenosis of spine 724.00 and Post-concussion headache 339.20 [place] [address] [id number] [address] [place] [address] Nov, [place] [address] [id number] [address] [place] [address] Nov, [place] [address] [id number] [address] [place] [address] Oct, Essential hypertension, sheridan gn 401.1 [facility] [address] [id number] [address] [place] [address] Oct, Edema 782.3 ; Lumbar back pa in 724.2 ; Essential hypertension, benign 401.1 ; Hyperlipemia 272.4 ; Neuroforaminal stenosis of spine 724.00 and Post-concussion headache 339.20 [place] [address] [id number] [address] [place] [address] Oct, [facility] [address] [id number] [address] [place] [address] Oct, Edema 782.3 [facility] [address] [id number] [address] [place] [address] Oct, Lumbar back pain 724.2 [facility] [address] [id number] [address] [place] [address] Oct, Cervicalgia 723.1 ; Lumbar b ack pain 724.2 and High risk medication use V58.69 [facility] [address] [id number] [address] [place] [address] Sep, [facility] [address] [facility] [id number] [place] [address] Sep, Lumbar strain 847.2 [facility] [address] [facility] [id number] [place] [address] August, Edema 782.3 and Eustachian t ube dysfunction 381.81 [facility] [address] [id number] [address] [place] [address] August, [facility] [address] [id number] [address] [place] [address] August, Eustachian tube dysfunction 381.81 [facility] [address] [id number] [address] [place] [address] Jul, Otalgia 388.70 and Otitis me jonathon 382.9 [facility] [address] [id number] [address] [place] [address] Jul, [facility] [address] [id number] [address] [place] [address] Jul, [facility] [address] [facility] [id number] [place] [address] Jul, [facility] [address] [facility] [id number] [place] [address] Jul, [facility] [address] [id number] [address] [place] [address], [place] [address] 13 Jul, 2014 [facility] [address] [id number] [address] [place] [address], [place] [address] Jun, [facility] [address] [id number] [address] [place] [address], [place] [address] 27 Jun, 2014 [facility] [address] [id number] [address] [place] [address], [place] [address] 16 Jun, 2014 [facility] [address] [id number] [address] [place] [address], [place] [address] May, [facility] [address] [id number] [address] [place] [address], [place] [address] May, [facility] [address] [id number] [address] [place] [address], [place] [address] May, [facility] [address] [id number] [address] [place] [address], [place] [address] May, [facility] [address] [id number] [address] [place] [address], [place] [address] May, 2014 [facility] [address] [id number] [address] [place] [address], [place] [address] May, [facility] [address] [id number] [address] [place] [address], [place] [address] May, 2014 [facility] [address] [id number] [address] [place] [address], [place] [address] May, 2014 [facility] [address] [id number] [address] [place] [address], [place] [address] May, 2014 [facility] [address] [id number] [address] [place] [address], [place] [address] May, 2014 [facility] [address] [id number] [address] [place] [address], [place] [address] Apr, [facility] [address] [id number] [address] [place] [address], [place] [address] Apr, [facility] [address] [id number] [address] [place] [address], [place] [address] Apr, [facility] [address] [id number] [address] [place] [address], [place] [address] Apr, [facility] [address] [id number] [address] [place] [address], [place] [address] Apr, [facility] [address] [id number] [address] [place] [address], [place] [address] Apr, [facility] [address] [id number] [address] [place] [address], [place] [address] Apr, [facility] [address] [id number] [address] [place] [address], [place] [address] Apr, [facility] [address] [id number] [address] [place] [address], [place] [address] Apr, [facility] [address] [id number] [address] [place] [address], [place] [address] Apr, [facility] [address] [id number] [address] [place] [address], [place] [address] Apr, [facility] [address] [id number] [address] [place] [address], [place] [address] Apr, [facility] [address] [id number] [address] [place] [address], [place] [address] Apr, [facility] [address] [id number] [address] [place] [address], [place] [address] Apr, [facility] [address] [id number] [address] [place] [address], [place] [address] Apr, [facility] [address] [id number] [address] [place] [address], [place] [address] Mar, [facility] [address] [id number] [address] [place] [address], [place] [address] Mar, [facility] [address] [id number] [address] [place] [address], [place] [address] Mar, [facility] [address] [id number] [address] [place] [address], [place] [address] Mar, [facility] [address] [id number] [address] [place] [address], [place] [address] Feb, [facility] [address] [id number] [address] [place] [address], [place] [address] Feb, [facility] [address] [id number] [address] [place] [address], [place] [address] Feb, [facility] [address] [id number] [address] [place] [address], [place] [address] Feb, [facility] [address] [id number] [address] [place] [address], [place] [address] Jan, [facility] [address] [id number] [address] [place] [address], [place] [address] Jan, [facility] [address] [id number] [address] [place] [address], [place] [address] Jan, [facility] [address] [id number] [address] [place] [address] Jan, [facility] [address] [id number] [address] [place] [address] Jan, [facility] [address] [id number] [address] [place] [address] Jan, [facility] [address] [id number] [address] [place] [address], [place] [address] Jan, [facility] [address] [id number] [address] [place] [address], [place] [address] Jan, [facility] [address] [id number] [address] [place] [address], [place] [address] Dec, [facility] [address] [id number] [facility] [place] [address] 29 Dec, 2013 [facility] [address] [id number] [address] [place] [address], [place] [address] 04 Dec, 2013 [facility] [address] [id number] [address] [place] [address], [place] [address] 04 Dec, 2013 [facility] [address] [id number] [address] [place] [address], [place] [address] 14 Oct, 2013 [facility] [address] [id number] [address] [place] [address], [place] [address] 14 Oct, 2013 [facility] [address] [id number] [address] [place] [address], [place] [address] Oct, [facility] [address] [id number] [address] [place] [address], [place] [address] Oct, 2013 [facility] [address] [id number] [address] [place] [address], [place] [address] Oct, 2013 [facility] [address] [id number] [address] [place] [address], [place] [address] Oct, 2013 [facility] [address] [id number] [address] [place] [address], [place] [address] Oct, [facility] [address] [id number] [address] [place] [address], [place] [address] Oct, [facility] [address] [id number] [address] [place] [address], [place] [address] Sep, [facility] [address] [id number] [address] [place] [address], [place] [address] Sep, [facility] [address] [id number] [address] [place] [address], [place] [address] Sep, [facility] [address] [id number] [address] [place] [address], [place] [address] Sep, [facility] [address] [id number] [address] [place] [address], [place] [address] Sep, [facility] [address] [id number] [address] [place] [address], [place] [address] Sep, [facility] [address] [id number] [address] [place] [address], [place] [address] Sep, [facility] [address] [id number] [address] [place] [address], [place] [address] Sep, [facility] [address] [id number] [address] [place] [address], [place] [address] Sep, [facility] [address] [id number] [address] [place] [address], [place] [address] Sep, [facility] [address] [id number] [address] [place] [address], [place] [address] August, [facility] [address] [id number] [address] [place] [address], [place] [address] August, [facility] [address] [id number] [address] [place] [address], [place] [address] August, [facility] [address] [id number] [address] [place] [address], [place] [address] August, [facility] [address] [id number] [address] [place] [address], [place] [address] August, [facility] [address] [id number] [address] [place] [address], [place] [address] August, [facility] [address] [id number] [address] [place] [address], [place] [address] August, [facility] [address] [id number] [address] [place] [address], [place] [address] August, [facility] [address] [id number] [address] [place] [address], [place] [address] August, [facility] [address] [id number] [address] [place] [address], [place] [address] August, [facility] [address] [id number] [address] [place] [address], [place] [address] August, [facility] [address] [id number] [address] [place] [address], [place] [address] August, [facility] [address] [id number] [address] [place] [address], [place] [address] Jul, [facility] [address] [id number] [address] [place] [address], [place] [address] Jul, [facility] [address] [id number] [address] [place] [address], [place] [address] Jul, [facility] [address] [id number] [address] [place] [address], [place] [address] Jul, [facility] [address] [id number] [address] [place] [address], [place] [address] Jul, [facility] [address] [id number] [address] [place] [address], [place] [address] Jul, [facility] [address] [id number] [address] [place] [address], [place] [address] Jun, [facility] [address] [id number] [address] [place] [address], [place] [address] Jun, [facility] [address] [id number] [address] [place] [address], [place] [address] May, [facility] [address] [id number] [address] [place] [address], [place] [address] May, [facility] [address] [id number] [address] [place] [address], [place] [address] Apr, [facility] [address] [id number] [address] [place] [address], [place] [address] Apr, [facility] [address] [id number] [address] [place] [address], [place] [address] Apr, [facility] [address] [id number] [address] [place] [address], [place] [address] Apr, [facility] [address] [id number] [address] [place] [address], [place] [address] Apr, [facility] [address] [id number] [address] [place] [address], [place] [address] Apr, [facility] [address] [id number] [address] [place] [address], [place] [address] Apr, [facility] [address] [id number] [address] [place] [address], [place] [address] Apr, [facility] [address] [id number] [address] [place] [address], [place] [address] Apr, [facility] [address] [id number] [address] [place] [address], [place] [address] Apr, [facility] [address] [id number] [address] [place] [address], [place] [address] Apr, [facility] [address] [id number] [address] [place] [address], [place] [address] Apr, [facility] [address] [id number] [address] [place] [address], [place] [address] Apr, [facility] [address] [id number] [address] [place] [address], [place] [address] Mar, [facility] [address] [id number] [address] [place] [address], [place] [address] Mar, [facility] [address] [id number] [address] [place] [address], [place] [address] Mar, [facility] [address] [id number] [address] [place] [address], [place] [address] Mar, [facility] [address] [id number] [address] [place] [address], [place] [address] Feb, [facility] [address] [id number] [address] [place] [address], [place] [address] Feb, [facility] [address] [id number] [address] [place] [address], [place] [address] Feb, [facility] [address] [id number] [address] [place] [address], [place] [address] 08 Feb, 2013 [facility] [address] [id number] [address] [place] [address], [place] [address] 14 Jan, 2013 [facility] [address] [id number] [address] [place] [address], [place] [address] 14 Jan, 2013 [facility] [address] [id number] [address] [place] [address], [place] [address] Jan, [facility] [address] [id number] [address] [place] [address], [place] [address] Jan, [facility] [address] [id number] [address] [place] [address], [place] [address] Jan, [facility] [address] [id number] [address] [place] [address], [place] [address] Jan, [facility] [address] [id number] [address] [place] [address], [place] [address] Jan, [facility] [address] [id number] [address] [place] [address], [place] [address] Jan, [facility] [address] [id number] [address] [place] [address], [place] [address] Jan, [facility] [address] [id number] [address] [place] [address], [place] [address] 26 Dec, 2012 [facility] [address] [id number] [address] [place] [address], [place] [address] 16 Dec, 2012 [facility] [address] [id number] [address] [place] [address], [place] [address] 16 Dec, 2012 [facility] [address] [id number] [address] [place] [address], [place] [address] 13 Dec, 2012 [facility] [address] [id number] [address] [place] [address], [place] [address] 17 Nov, 2012 [facility] [address] [id number] [address] [place] [address] [place] [address] Nov, [facility] [address] [id number] [address] [place] [address], [place] [address] Nov, [facility] [address] [id number] [address] [place] [address], [place] [address] Nov, [facility] [address] [id number] [address] [place] [address], [place] [address] Oct, [facility] [address] [id number] [address] [place] [address], [place] [address] Sep, [facility] [address] [id number] [address] [place] [address], [place] [address] August, [facility] [address] [id number] [address] [place] [address], [place] [address] August, [facility] [address] [id number] [address] [place] [address], [place] [address] August, [facility] [address] [id number] [address] [place] [address], [place] [address] August, [facility] [address] [id number] [address] [place] [address], [place] [address] August, [facility] [address] [id number] [address] [place] [address], [place] [address] August, [facility] [address] [id number] [address] [place] [address], [place] [address] August, [facility] [address] [id number] [address] [place] [address], [place] [address] August, [facility] [address] [id number] [address] [place] [address], [place] [address] August, [facility] [address] [id number] [address] [place] [address], [place] [address] August, [facility] [address] [id number] [address] [place] [address], [place] [address] August, [facility] [address] [id number] [address] [place] [address], [place] [address] August, [facility] [address] [id number] [address] [place] [address], [place] [address] Jul, [facility] [address] [id number] [address] [place] [address], [place] [address] Jul, [facility] [address] [id number] [address] [place] [address], [place] [address] Jul, [facility] [address] [id number] [address] [place] [address], [place] [address] 15 Jul, 2012 [facility] [address] [id number] [address] [place] [address], [place] [address] Jul, [facility] [address] [id number] [address] [place] [address], [place] [address] Jul, [facility] [address] [id number] [address] [place] [address], [place] [address] Jul, [facility] [address] [id number] [address] [place] [address], [place] [address] Jul, [facility] [address] [id number] [address] [place] [address], [place] [address] Jul, [facility] [address] [id number] [address] [place] [address], [place] [address] Jul, [facility] [address] [id number] [address] [place] [address], [place] [address] Jul, [facility] [address] [id number] [address] [place] [address], [place] [address] Jun, [facility] [address] [id number] [address] [place] [address], [place] [address] Jun, [facility] [address] [id number] [address] [place] [address], [place] [address] Jun, [facility] [address] [id number] [address] [place] [address], [place] [address] Jun, [facility] [address] [id number] [address] [place] [address], [place] [address] May, [facility] [address] [id number] [address] [place] [address], [place] [address] 14 May, 2012 [facility] [address] [address] [id number] [address] [place] [address], [place] [address] May, [facility] [address] [id number] [address] [place] [address], [place] [address] May, [facility] [address] [id number] [address] [place] [address], [place] [address] May, [facility] [address] [id number] [address] [place] [address], [place] [address] May, [facility] [address] [id number] [address] [place] [address], [place] [address] Apr, [facility] [address] [id number] [address] [place] [address], [place] [address] Apr, [facility] [address] [id number] [address] [place] [address], [place] [address] Apr, [facility] [address] [id number] [address] [place] [address], [place] [address] Apr, [facility] [address] [id number] [address] [place] [address], [place] [address] 15 Mar, 2012 [facility] [address] [id number] [address] [place] [address], [place] [address] 14 Mar, 2012 [facility] [address] [id number] [address] [place] [address], [place] [address] 14 Mar, 2012 [facility] [address] [id number] [address] [place] [address], [place] [address] 14 Mar, 2012 [facility] [address] [id number] [address] [place] [address], [place] [address] 14 Mar, 2012 [facility] [address] [id number] [address] [place] [address], [place] [address] Mar, [facility] [address] [id number] [address] [place] [address], [place] [address] Mar, [facility] [address] [id number] [address] [place] [address], [place] [address] Feb, [facility] [address] [id number] [address] [place] [address], [place] [address] Feb, [facility] [address] [id number] [address] [place] [address], [place] [address] Feb, [facility] [address] [id number] [address] [place] [address], [place] [address] Feb, [facility] [address] [id number] [address] [place] [address], [place] [address] Jan, [facility] [address] [id number] [address] [place] [address], [place] [address] Jan, [facility] [address] [id number] [address] [place] [address], [place] [address] Jan, [facility] [address] [id number] [address] [place] [address], [place] [address] Jan, [facility] [address] [id number] [address] [place] [address], [place] [address] Jan, [facility] [address] [id number] [address] [place] [address], [place] [address] Jan, [facility] [address] [id number] [address] [place] [address], [place] [address] Dec, [facility] [address] [id number] [address] [place] [address], [place] [address] Dec, [facility] [address] [id number] [address] [place] [address], [place] [address] Nov, [facility] [address] [id number] [address] [place] [address], [place] [address] Sep, [facility] [address] [id number] [address] [place] [address], [place] [address] August, [facility] [address] [id number] [address] [place] [address], [place] [address] August, [facility] [address] [id number] [address] [place] [address], [place] [address] August, [facility] [address] [id number] [address] [place] [address], [place] [address] August, [facility] [address] [id number] [address] [place] [address], [place] [address] August, [facility] [address] [id number] [address] [place] [address], [place] [address] Jun, [facility] [address] [id number] [address] [place] [address], [place] [address] Jun, [facility] [address] [id number] [address] [place] [address], [place] [address] Apr, [facility] [address] [id number] [address] [place] [address], [place] [address] Apr, [facility] [address] [id number] [address] [place] [address], [place] [address] Mar, [facility] [address] [id number] [address] [place] [address], [place] [address] Feb, [facility] [address] [id number] [address] [place] [address], [place] [address] 14 Feb, 2011 [facility] [address] [id number] [address] [place] [address], [place] [address] 14 Feb, 2011 [facility] [address] [id number] [address] [place] [address], [place] [address] 17 Jan, 2011 [facility] [address] [id number] [address] [place] [address], [place] [address] 15 Jan, 2011 [facility] [address] [id number] [address] [place] [id number] 15 Jan, 2011 [facility] [address] [id number] [address] [place] [address] 14 Jan, 2011 [facility] [address] [id number] [address] [place] [id number] 15 May, 2010 [facility] [address] [id number] [address] [place] [address] Mar, [facility] [address] [id number] [address] [place] [address] Oct, [facility] [address] [facility] [id number] [place] [id number] Sep, [facility] [address] [facility] [id number] [place] [address] Mar, [facility] [address] [facility] [id number] [place] [address] Jan, [facility] [address] [facility] [id number] [place] [id number] Jan, [facility] [address] [facility] [id number] [place] [id number] May, IMMUNIZATIONS No Known Immunizations SOCIAL HISTORY Never Assessed REASON FOR VISIT [facility] PLAN OF CARE VITAL SIGNS MEDICATIONS Unknown [...]
--- OUTSIDE RECORDS SUMMARY | 2019-11-23 06:02 | XMS REPORT ---
Author Author Liana Coe Doctor Organization [facility] Address Unknown Phone Unavailable Care Team Providers Care District Wildlife Manager Name Role Phone Migration, Doctor Unavailable Unavailable PROBLEMS Type Condition ICD9-CM Code [id number] Code Onset Dates Condition S tatus SNOMED Code Problem Hematuria, unspecified type R31.9 Ac tive 48957221 Problem Abnormal renal ultrasound R93.429 Acti ve [id number] Problem Anxiety F41.9 Active 54742417 Problem Hypokalemia E87.6 Active 73984551 Problem Abnormal glucose R73.09 Active 102 398617 Problem Chronic pain due to trauma G89.21 Act juanis 778397424 Problem Neuroforaminal stenosis of spine M99.89 Active [id number] Problem Neck pain M54.2 Active 55033721 Problem Essential hypertension I10 Active 13602138 Problem Mixed hyperlipidemia E78.2 Active [id number] ALLERGIES No Information ENCOUNTERS Encounter Location Date Diagnosis [place] [id number] [facility] [id number] [address] [place] [address] May, Neuroforaminal stenosis of s pine M99.89 [place] [address] [facility] [id number] [address] [place] [phone] May, [facility] [address] [facility] [id number] [address] [place] [phone] May, Congestion of nasal sinus R0 9.81 [facility] [address] [facility] [id number] [address] [place] [phone] May, [facility] [address] [facility] [id number] [address] [place] [phone] Apr, Neuroforaminal stenosis of s pine M99.89 [facility] [address] [facility] [id number] [address] [place] [phone] Apr, Neuroforaminal stenosis of s pine M99.89 and Chronic pain due to trauma G89.21 [facility] [address] [id number] [address] [place] [phone] Mar, UTI (urinary tract infection ) N39.0 [facility] [address] [id number] [address] [place] [phone] Mar, Vertigo R42 [facility] [address] [id number] [address] [place] [phone] Mar, Neuroforaminal stenosis of s jose M99.89 [facility] [address] [id number] [address] [place] [phone] Feb, Extensor tendon disruption M 67.89 [facility] [address] [id number] [address] [place] [phone] Feb, Neuroforaminal stenosis of ayla garcia M99.89 and High risk medication use Z79.899 [facility] [address] [id number] [address] [place] [phone] Jan, Hypokalemia E87.6 [facility] [address] [id number] [address] [place] [phone] Jan, Flank pain R10.9 and Acute r ight-sided low back pain without sciatica M54.5 [facility] [address] [id number] [address] [place] [phone] Jan, Hypokalemia E87.6 [facility] [address] [id number] [address] [place] [phone] Jan, [facility] [address] [id number] [address] [place] [phone] Jan, URI, acute J06.9 [facility] [address] [id number] [address] [place] [phone] Jan, Neuroforaminal stenosis of ayla garcia M99.89 [facility] [address] [id number] [address] [place] [phone] 13 Dec, 2017 Lateral epicondylitis, right elbow M77.11 [place] [address] [address] 11 Dec, 2017 Allergic rhinitis due to monica rosalina, unspecified seasonality J30.1 and Allergic conjunctivitis of both eyes H10.13 [place] [address] [address] 10 Dec, 2017 Neuroforaminal stenosis of s pine M99.89 [place] [address] [address] 06 Dec, 2017 Mixed hyperlipidemia E78.2 [place] [address] [address] 05 Dec, 2017 Abnormal glucose R73.09 ; Ab normal renal ultrasound R93.429 ; Dysuria R30.0 ; Cystitis without hematuria N30.90 ; Hypokalemia E87.6 ; Mixed hyperlipidemia E78.2 and Hematuria, unspecified type R31.9 [place] [address] [address] Nov, Hypokalemia E87.6 ; Mixed hy perlipidemia E78.2 and Hematuria, unspecified type R31.9 [place] [address] [phone] Nov, [place] [address] [phone] Nov, Hypokalemia E87.6 [place] [address] [id number] Nov, [place] [address] [address] Nov, Abnormal renal ultrasound R9 3.429 [place] [address] [phone] Nov, Abnormal renal ultrasound R9 3.429 [place] [address] [id number] [address] [place] [id number] 09 Nov, 2017 Hematuria, unspecified type R31.9 and Neuroforaminal stenosis of spine M99.89 [facility] [address] [id number] [address] [place] [phone] Nov, Dysuria R30.0 [place] [address] [id number] [address] [place] [phone] Oct, Lateral epicondylitis, right elbow M77.11 [place] [address] [id number] [address] [place] [phone] Oct, Neuroforaminal stenosis of s jose M99.89 ; Visit for TB skin test Z11.1 and Essential hypertension I10 [place] [address] [id number] [address] [place] [phone] Oct, [place] [address] [id number] [address] [place] [phone] Oct, Neuroforaminal stenosis of s pine M99.89 [place] [address] [id number] [address] [place] [phone] Oct, Visit for TB skin test Z11.1 [place] [address] [id number] [address] [place] [phone] 05 Oct, 2017 Cystitis without hematuria N 30.90 [place] [address] [id number] [address] [place] [phone] Sep, Screening breast examination Z12.39 [place] [address] [id number] [address] [place] [phone] Sep, Dysuria R30.0 and Cystitis w ithout hematuria N30.90 [place] [address] [id number] [address] [place] [phone] 14 Sep, 2017 Essential hypertension I10 a nd Neuroforaminal stenosis of spine M99.89 [place] [address] [id number] [address] [place] [phone] Sep, Abnormal glucose R73.09 [place] [address] [id number] [address] [place] [phone] August, Lateral epicondylitis, right elbow M77.11 [place] [address] [id number] [address] [place] [phone] August, Screen for STD (sexually tra nsmitted disease) Z11.3 [place] [address] [id number] [address] [place] [id number] August, Neuroforaminal stenosis of s jose M99.89 ; Mixed hyperlipidemia E78.2 ; Elevated fasting glucose R73.01 ; Screening mammogram, encounter for Z12.31 and Encounter for well woman exam without gynecological exam Z00.00 [place] [address] [id number] [address] [place] [address] August, Neuroforaminal stenosis of s pine M99.89 [place] [address] [id number] [address] [place] [phone] August, Essential hypertension I10 ; Hypokalemia E87.6 and Mixed hyperlipidemia E78.2 [place] [address] [id number] [address] [place] [phone] Jul, [place] [address] [id number] [address] [place] [phone] Jul, Neuroforaminal stenosis of s pine M99.89 [place] [address] [id number] [address] [place] [phone] Jul, Lateral epicondylitis, right elbow M77.11 [place] [address] [id number] [address] [place] [address] Jul, [place] [address] [id number] [address] [place] [phone] Jun, High ankle sprain of right l ower extremity, initial encounter S93.431A [place] [address] [id number] [address] [place] [id number] Jun, Essential hypertension I10 [facility] [address] [id number] [address] [place] [phone] Jun, [facility] [address] [id number] [address] [place] [phone] Jun, [facility] [address] [id number] [address] [place] [phone] Jun, Neuroforaminal stenosis of s pine M99.89 [facility] [address] [id number] [address] [place] [phone] Jun, Pain of right upper extremit y M79.601 and Essential hypertension I10 [place] [address] [id number] [address] [place] [address] Jun, [place] [address] [facility] [id number] [address] [place] [phone] Jun, Dysuria R30.0 ; Acute cystit is with hematuria N30.01 and Screen for STD (sexually transmitted disease) Z11.3 [place] [address] [id number] [address] [place] [address] May, Chronic pain due to trauma G 89.21 [place] [address] [id number] [address] [place] [phone] May, Essential hypertension I10 [facility] [address] [id number] [address] [place] [address] May, Neuroforaminal stenosis of s pine M99.89 [facility] [address] [id number] [address] [place] [phone] Apr, Allergic reaction, initial e ncounter T78.40XA [facility] [address] [id number] [address] [place] [phone] Apr, Low back pain, unspecified b ack pain laterality, unspecified chronicity, with sciatica presence unspecified M54.5 ; Acute cystitis with hematuria N30.01 ; Neuroforaminal stenosis of spine M99.89 ; Bilateral acute serous otitis media, recurrence not specified H65.03 ; Mixed hyperlipidemia E78.2 ; Essential hypertension I10 ; Immunization counseling Z71.89 and Encounter for immunization Z23 [facility] [address] [id number] [address] [place] [phone] 08 Apr, 2017 Neck pain M54.2 [facility] [address] [id number] [address] [place] [phone] 26 Mar, 2017 Neuroforaminal stenosis of s pine M99.89 [place] [address] [id number] [address] [place] [phone] Mar, Pharyngitis due to other org anism J02.8 [facility] [address] [id number] [address] [place] [phone] Feb, Neuroforaminal stenosis of s pine M99.89 [facility] [address] [id number] [address] [place] [phone] 08 Feb, 2017 UTI (urinary tract infection ) N39.0 [facility] [address] [id number] [address] [place] [phone] 07 Feb, 2017 Recent urinary tract infecti on Z87.440 ; Neuroforaminal stenosis of spine M99.89 ; Neck pain M54.2 ; Chronic pain due to trauma G89.21 and Recurrent UTI N39.0 [facility] [address] [id number] [address] [place] [id number] 03 Feb, 2017 [facility] [address] [id number] [address] [place] [phone] Jan, Neuroforaminal stenosis of s pine M99.89 [facility] [address] [id number] [address] [place] [phone] 28 Dec, 2016 Neuroforaminal stenosis of s pine M99.89 [facility] [address] [id number] [address] [place] [phone] 18 Dec, 2016 Acute seasonal allergic rhin itis due to pollen J30.1 [facility] [address] [id number] [address] [place] [phone] 08 Dec, 2016 [facility] [address] [id number] [address] [place] [phone] 08 Dec, 2016 Acute seasonal allergic rhin itis, unspecified trigger J30.2 ; Allergic conjunctivitis of both eyes H10.13 and Dysfunction of both eustachian tubes H69.83 [facility] [address] [id number] [address] [place] [phone] 07 Dec, 2016 [place] [address] [id number] [address] [place] [phone] Dec, Nevus D22.9 [place] [address] [facility] [id number] [address] [place] [phone] Nov, Chronic pain due to trauma G 89.21 and Neuroforaminal stenosis of spine M99.89 [place] [address] [id number] [address] [place] [phone] Nov, Neuroforaminal stenosis of s pine M99.89 ; Essential hypertension I10 ; Mixed hyperlipidemia E78.2 ; Hypokalemia E87.6 ; Neck pain M54.2 and Nevus D22.9 [place] [address] [id number] [address] [place] [phone] Oct, Neuroforaminal stenosis of s pine M99.89 [facility] [address] [id number] [address] [place] [phone] Sep, Neuroforaminal stenosis of s pine M99.89 [place] [address] [id number] [address] [place] [phone] Sep, [place] [address] [id number] [address] [place] [phone] August, [facility] [address] [facility] [id number] [address] [place] [phone] August, Neck pain M54.2 and Neurofor aminal stenosis of spine M99.89 [facility] [address] [id number] [address] [place] [phone] August, Routine gynecological examin ation Z01.419 and Screening breast examination Z12.39 [facility] [address] [id number] [address] [place] [phone] Jul, [facility] [address] [id number] [address] [place] [phone] Jul, [facility] [address] [id number] [address] [place] [phone] Jul, Neuroforaminal stenosis of s pine M99.89 [facility] [address] [id number] [address] [place] [id number] Jul, [facility] [address] [id number] [address] [place] [phone] Jul, Neuroforaminal stenosis of l umbar 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 [facility] [address] [id number] [address] [place] [phone] Jul, [facility] [address] [id number] [address] [place] [phone] Jul, [facility] [address] [id number] [address] [place] [phone] Jun, Neuroforaminal stenosis of s pine M99.89 [facility] [address] [id number] [address] [place] [phone] Jun, Uterine leiomyoma, unspecifi ed location D25.9 and Allergic reaction caused by a drug, initial encounter T78.40XA [facility] [address] [id number] [address] [place] [id number] Jun, [facility] [address] [id number] [address] [place] [address] May, UTI symptoms R39.9 and Pain of right sacroiliac joint M53.3 [place] [address] [id number] [address] [place] [phone] May, Neuroforaminal stenosis of s jose M99.89 [place] [address] [id number] [address] [place] [phone] May, [place] [address] [facility] [id number] [address] [place] [phone] May, Acute mucoid otitis media of left ear H65.112 and Acute non- recurrent maxillary sinusitis J01.00 [place] [address] [facility] [id number] [address] [place] [phone] May, Acute bacterial conjunctivit is of both eyes H10.33 ; Left arm pain M79.602 and Hypokalemia E87.6 [place] [address] [facility] [id number] [address] [place] [phone] Apr, [place] [address] [id number] [address] [place] [address] Apr, Neuroforaminal stenosis of s pine M99.89 ; Neck pain M54.2 ; Chronic pain due to trauma G89.21 ; Mixed hyperlipidemia E78.2 ; Essential hypertension I10 and Hypokalemia E87.6 [place] [address] [facility] [id number] [address] [place] [phone] Mar, Oral candidiasis B37.0 ; Nathaniel roforaminal stenosis of spine M99.89 ; Neck pain M54.2 and Chronic pain due to trauma G89.21 [place] [address] [facility] [id number] [address] [place] [phone] Feb, [place] [address] [facility] [id number] [address] [place] [phone] Feb, [place] [address] [facility] [id number] [address] [place] [phone] Feb, UTI (urinary tract infection ) N39.0 [facility] [address] [id number] [address] [place] [phone] 09 Feb, 2016 Dysuria R30.0 [facility] [address] [id number] [address] [place] [phone] 08 Feb, 2016 Dysuria R30.0 [facility] [address] [id number] [address] [place] [phone] Feb, Neuroforaminal stenosis of s pine M99.89 ; Neck pain M54.2 ; Essential hypertension I10 ; Chronic pain due to trauma G89.21 ; Dysuria R30.0 ; Abnormal MRI, shoulder R93.8 and Acute cystitis without hematuria N30.00 [facility] [address] [id number] [address] [place] [phone] Jan, [facility] [address] [id number] [address] [place] [phone] Jan, [facility] [address] [id number] [address] [place] [phone] Jan, [facility] [address] [id number] [address] [place] [phone] Jan, Abnormal MRI R93.8 [facility] [address] [id number] [address] [place] [phone] 29 Dec, 2015 [facility] [address] [id number] [address] [place] [id number] 15 Dec, 2015 Acute pain of left shoulder M25.512 [facility] [address] [id number] [address] [place] [phone] 09 Dec, 2015 [facility] [address] [id number] [address] [place] [phone] 08 Dec, 2015 [facility] [address] [id number] [address] [place] [phone] 07 Dec, 2015 Acute pain of left shoulder M25.512 [facility] [address] [id number] [address] [place] [phone] Nov, [facility] [address] [id number] [address] [place] [phone] Nov, Neuroforaminal stenosis of s pine M99.89 ; Neck pain M54.2 ; Abnormal mammogram R92.8 ; Essential hypertension I10 and Chronic pain due to trauma G89.21 [facility] [address] [id number] [address] [place] [phone] Nov, [facility] [address] [id number] [address] [place] [phone] Oct, Acute stress disorder F43.0 [facility] [address] [id number] [address] [place] [phone] Oct, [facility] [address] [id number] [address] [place] [phone] Oct, [facility] [address] [id number] [address] [place] [phone] Oct, [facility] [address] [id number] [address] [place] [phone] Sep, [facility] [address] [id number] [address] [place] [phone] August, [facility] [address] [id number] [address] [place] [phone] Jul, Neuroforaminal stenosis of s pine M99.89 ; Neck pain M54.2 ; Abnormal mammogram R92.8 and Essential hypertension I10 [facility] [address] [id number] [address] [place] [phone] Jul, [facility] [address] [id number] [address] [place] [phone] Jul, [facility] [address] [id number] [address] [place] [phone] Jul, Abnormal mammogram R92.8 [facility] [address] [id number] [address] [place] [phone] 08 Jul, 2015 [facility] [address] [facility] [id number] [address] [place] [phone] Jul, UTI (urinary tract infection ) N39.0 [facility] [address] [facility] [id number] [address] [place] [phone] Jul, Dysuria R30.0 [facility] [address] [facility] [id number] [address] [place] [phone] Jun, [facility] [address] [facility] [id number] [address] [place] [phone] Jun, [facility] [address] [place] [id number] [address] [place] [phone] Jun, Hypokalemia E87.6 and Hematu martina R31.9 [place] [address] [place] [id number] [address] [place] [phone] Jun, Hypokalemia E87.6 [facility] [address] [facility] [id number] [address] [place] [phone] Jun, [facility] [address] [place] [id number] [address] [place] [phone] Jun, Hypokalemia E87.6 [facility] [address] [place] [id number] [address] [place] [phone] Jun, Hypokalemia E87.6 [facility] [address] [place] [id number] [address] [place] [id number] 15 Jun, 2015 Neuroforaminal stenosis of s pine M99.89 ; Hypokalemia E87.6 ; Neck pain M54.2 ; Essential hypertension I10 ; Mixed hyperlipidemia E78.2 and Screening breast examination Z12.39 [place] [id number] [facility] [id number] [address] [place] [phone] 08 Jun, 2015 Dysuria R30.0 ; UTI (urinary tract infection) N39.0 and Hematuria R31.9 [place] [id number] [facility] [id number] [address] [place] [id number] May, [facility] [id number] [place] [id number] 18 May, 2015 High risk sexual behavior Z7 2.51 ; Hypokalemia E87.6 ; Neuroforaminal stenosis of spine M99.89 ; Neck pain M54.2 ; Essential hypertension I10 ; Mixed hyperlipidemia E78.2 ; STD exposure Z20.2 and Concern about STD in female without diagnosis Z71.1 [facility] [address] [facility] [id number] [address] [place] [phone] 16 May, 2015 Neuroforaminal stenosis of s pine M99.89 ; Neck pain M54.2 ; Hypokalemia E87.6 ; Essential hypertension I10 and Mixed hyperlipidemia E78.2 [facility] [id number] [place] [phone] May, [facility] [address] [facility] [id number] [address] [place] [phone] 08 May, 2015 High risk sexual behavior Z7 2.51 ; STD exposure Z20.2 and Concern about STD in female without diagnosis Z71.1 [facility] [address] [facility] [id number] [address] [place] [phone] May, [facility] [address] [facility] [id number] [address] [place] [phone] Apr, Neuroforaminal stenosis of s pine M99.89 ; Mixed hyperlipidemia E78.2 ; Essential hypertension I10 and Hypokalemia E87.6 [facility] [address] [facility] [id number] [address] [place] [phone] Mar, [facility] [address] [facility] [id number] [address] [place] [phone] Mar, Hypokalemia E87.6 [facility] [address] [facility] [id number] [address] [place] [phone] Mar, Neuroforaminal stenosis of s pine M99.89 ; Mixed hyperlipidemia E78.2 ; Neck pain M54.2 ; Essential hypertension I10 ; Abnormal fasting glucose R73.09 ; Hypokalemia E87.6 and Constipation K59.00 [facility] [address] [facility] [id number] [address] [place] [address] Feb, Neuroforaminal stenosis of s pine M99.89 ; Mixed hyperlipidemia E78.2 ; Neck pain M54.2 ; Essential hypertension I10 ; Abnormal fasting glucose R73.09 ; Hypokalemia E87.6 and Constipation K59.00 [facility] [address] [facility] [id number] [address] [place] [address] Feb, Elevated fasting blood sugar R73.01 [place] [address] [facility] [id number] [address] [place] [address] Feb, Elevated fasting blood sugar R73.01 [place] [address] [facility] [id number] [address] [place] [address] Feb, Hair loss L65.9 [place] [address] [facility] [id number] [address] [place] [address] Feb, Sinusitis J32.9 ; Essential hypertension I10 and Hair loss L65.9 [facility] [address] [facility] [id number] [address] [place] [address] Jan, [facility] [address] [facility] [id number] [address] [place] [address] Jan, Essential hypertension I10 ; Neuroforaminal stenosis of spine M99.89 ; Neck pain M54.2 ; Mixed hyperlipidemia E78.2 and Anxiety F41.9 [facility] [address] [facility] [id number] [address] [place] [address] Jan, [facility] [address] [facility] [id number] [address] [place] [address] Jan, Mixed hyperlipidemia E78.2 ; Essential (primary) hypertension I10 ; Strain of muscle, fascia and tendon at neck level, subsequent encounter S16.1XXD and Tension-type headache, unspecified, not intractable G44.209 [facility] [address] [id number] [address] [place] [address] Dec, Lumbar back pain 724.2 and N euroforaminal stenosis of spine 724.00 [facility] [address] [id number] [address] [place] [address] Nov, [facility] [address] [id number] [address] [place] [address] Nov, Lumbar back pain 724.2 and N euroforaminal stenosis of spine 724.00 [place] [address] [facility] [id number] [address] [place] [address] Nov, Edema 782.3 ; Lumbar back pa in 724.2 ; Essential hypertension, benign 401.1 ; Hyperlipemia 272.4 ; Neuroforaminal stenosis of spine 724.00 and Post-concussion headache 339.20 [facility] [address] [id number] [address] [place] [address] Nov, [facility] [address] [facility] [id number] [address] [place] [address] Nov, [facility] [address] [facility] [id number] [address] [place] [address] Oct, Essential hypertension, sheridan gn 401.1 [facility] [address] [facility] [id number] [address] [place] [address] Oct, Edema 782.3 ; Lumbar back pa in 724.2 ; Essential hypertension, benign 401.1 ; Hyperlipemia 272.4 ; Neuroforaminal stenosis of spine 724.00 and Post-concussion headache 339.20 [facility] [address] [facility] [id number] [address] [place] [address] Oct, [facility] [address] [facility] [id number] [address] [place] [address] Oct, Edema 782.3 [facility] [address] [id number] [address] [place] [address] Oct, Lumbar back pain 724.2 [facility] [address] [id number] [address] [place] [address] Oct, Cervicalgia 723.1 ; Lumbar b ack pain 724.2 and High risk medication use V58.69 [facility] [address] [id number] [address] [place] [address] Sep, [facility] [address] [id number] [address] [place] [address] Sep, Lumbar strain 847.2 [facility] [address] [facility] [id number] [address] [place] [address] August, Edema 782.3 and Eustachian t ube dysfunction 381.81 [facility] [address] [facility] [id number] [address] [place] [address] August, [facility] [address] [id number] [address] [place] [address] August, Eustachian tube dysfunction 381.81 [facility] [address] [id number] [address] [place] [address] Jul, Otalgia 388.70 and Otitis me jonathon 382.9 [facility] [address] [id number] [address] [place] [address] Jul, [facility] [address] [id number] [address] [place] [address] Jul, [facility] [address] [id number] [address] [place] [address] Jul, [facility] [address] [facility] [id number] [address] [place] [address] Jul, [facility] [address] [facility] [id number] [address] [place] [address] Jul, [facility] [address] [id number] [address] [place] [address], [place] [address] Jun, [facility] [address] [id number] [address] [place] [address], [place] [address] 27 Jun, 2014 [facility] [address] [id number] [address] [place] [address], [place] [address] Jun, [facility] [address] [id number] [address] [place] [address], [place] [address] May, 2014 [facility] [address] [id number] [address] [place] [address], [place] [address] May, 2014 [facility] [address] [id number] [address] [place] [address], [place] [address] May, 2014 [facility] [address] [id number] [address] [place] [address], [place] [address] May, 2014 [facility] [address] [id number] [address] [place] [address], [place] [address] May, 2014 [facility] [address] [id number] [address] [place] [address], [place] [address] May, [facility] [address] [id number] [address] [place] [address], [place] [address] May, [facility] [address] [id number] [address] [place] [address], [place] [address] May, [facility] [address] [id number] [address] [place] [address], [place] [address] May, [facility] [address] [id number] [address] [place] [address], [place] [address] May, [facility] [address] [id number] [address] [place] [address], [place] [address] Apr, [facility] [address] [id number] [address] [place] [address], [place] [address] Apr, [facility] [address] [id number] [address] [place] [address] Apr, [facility] [address] [id number] [address] [place] [address], [place] [address] Apr, [facility] [address] [id number] [address] [place] [address], [place] [address] Apr, [facility] [address] [id number] [address] [place] [address], [place] [address] Apr, [facility] [address] [id number] [address] [place] [address], [place] [address] Apr, [facility] [address] [id number] [address] [place] [address], [place] [address] Apr, [facility] [address] [id number] [address] [place] [address], [place] [address] Apr, [facility] [address] [id number] [address] [place] [address], [place] [address] Apr, [facility] [address] [id number] [address] [place] [address], [place] [address] Apr, [facility] [address] [id number] [address] [place] [address], [place] [address] Apr, [facility] [address] [id number] [address] [place] [address], [place] [address] Apr, [facility] [address] [id number] [address] [place] [address], [place] [address] Apr, [facility] [address] [id number] [address] [place] [address], [place] [address] Apr, [facility] [address] [id number] [address] [place] [address], [place] [address] Mar, [facility] [address] [id number] [address] [place] [address], [place] [address] Mar, [facility] [address] [id number] [address] [place] [address], [place] [address] Mar, [facility] [address] [id number] [address] [place] [address], [place] [address] Mar, [facility] [address] [id number] [address] [place] [address], [place] [address] Feb, [facility] [address] [id number] [address] [place] [address], [place] [address] Feb, [facility] [address] [id number] [address] [place] [address], [place] [address] Feb, [facility] [address] [id number] [address] [place] [address], [place] [address] Feb, [facility] [address] [id number] [address] [place] [address], [place] [address] Jan, [facility] [address] [id number] [address] [place] [address], [place] [address] Jan, [facility] [address] [id number] [address] [place] [address], [place] [address] Jan, [facility] [address] [id number] [address] [place] [address], [place] [address] Jan, [facility] [address] [id number] [address] [place] [address], [place] [address] Jan, [facility] [address] [id number] [address] [place] [address], [place] [address] Jan, [facility] [address] [id number] [address] [place] [address], [place] [address] Jan, [facility] [address] [id number] [address] [place] [address], [place] [address] Jan, [facility] [address] [id number] [address] [place] [address], [place] [address] Dec, [facility] [address] [id number] [address] [place] [address], [place] [address] Dec, [facility] [address] [id number] [address] [place] [address], [place] [address] Dec, [facility] [address] [id number] [address] [place] [address], [place] [address] Dec, 2013 [facility] [address] [id number] [address] [place] [address], [place] [address] Oct, 2013 [facility] [address] [id number] [address] [place] [address], [place] [address] Oct, 2013 [facility] [address] [id number] [address] [place] [address], [place] [address] Oct, 2013 [facility] [address] [id number] [address] [place] [address], [place] [address] Oct, 2013 [facility] [address] [id number] [address] [place] [address], [place] [address] Oct, 2013 [facility] [address] [id number] [address] [place] [address], [place] [address] Oct, 2013 [facility] [address] [id number] [address] [place] [address], [place] [address] Oct, 2013 [facility] [address] [id number] [address] [place] [address], [place] [address] Oct, [facility] [address] [id number] [address] [place] [address], [place] [address] Sep, [facility] [address] [id number] [address] [place] [address], [place] [address] Sep, [facility] [address] [id number] [address] [place] [address], [place] [address] Sep, [facility] [address] [id number] [address] [place] [address], [place] [address] Sep, [facility] [address] [id number] [address] [place] [address], [place] [address] Sep, [facility] [address] [id number] [address] [place] [address], [place] [address] Sep, [facility] [address] [id number] [address] [place] [address], [place] [address] Sep, [facility] [address] [id number] [address] [place] [address], [place] [address] Sep, [facility] [address] [id number] [address] [place] [address], [place] [address] Sep, [facility] [address] [id number] [address] [place] [address], [place] [address] Sep, [facility] [address] [id number] [address] [place] [address], [place] [address] August, [facility] [address] [id number] [address] [place] [address], [place] [address] August, [facility] [address] [id number] [address] [place] [address], [place] [address] August, [facility] [address] [id number] [address] [place] [address], [place] [address] August, [facility] [address] [id number] [address] [place] [address], [place] [address] August, [facility] [address] [id number] [address] [place] [address], [place] [address] August, [facility] [address] [id number] [address] [place] [address], [place] [address] August, [facility] [address] [id number] [address] [place] [address], [place] [address] August, [facility] [address] [id number] [address] [place] [address], [place] [address] August, [facility] [address] [id number] [address] [place] [address], [place] [address] August, [facility] [address] [id number] [address] [place] [address], [place] [address] August, [facility] [address] [id number] [address] [place] [address], [place] [address] August, [facility] [address] [id number] [address] [place] [address], [place] [address] Jul, [facility] [address] [id number] [facility] [place] [address] Jul, [facility] [address] [id number] [address] [place] [address], [place] [address] Jul, [facility] [address] [id number] [address] [place] [address], [place] [address] Jul, [facility] [address] [id number] [address] [place] [address], [place] [address] Jul, [facility] [address] [id number] [address] [place] [address], [place] [address] Jul, [facility] [address] [id number] [address] [place] [address], [place] [address] Jun, [facility] [address] [id number] [address] [place] [address], [place] [address] Jun, [facility] [address] [id number] [address] [place] [address], [place] [address] May, [facility] [address] [id number] [address] [place] [address], [place] [address] May, [facility] [address] [id number] [address] [place] [address], [place] [address] Apr, [facility] [address] [id number] [address] [place] [address], [place] [address] Apr, [facility] [address] [id number] [address] [place] [address], [place] [address] Apr, [facility] [address] [id number] [address] [place] [address], [place] [address] Apr, [facility] [address] [id number] [address] [place] [address], [place] [address] Apr, [facility] [address] [id number] [address] [place] [address] [address] Apr, [facility] [address] [id number] [address] [place] [address], [place] [address] Apr, [facility] [address] [id number] [address] [place] [address], [place] [address] Apr, [facility] [address] [id number] [address] [place] [address], [place] [address] Apr, [facility] [address] [id number] [address] [place] [address], [place] [address] Apr, [facility] [address] [id number] [address] [place] [address], [place] [address] Apr, [facility] [address] [id number] [address] [place] [address], [place] [address] Apr, [facility] [address] [id number] [address] [place] [address], [place] [address] Apr, [facility] [address] [id number] [address] [place] [address], [place] [address] Mar, [facility] [address] [id number] [address] [place] [address], [place] [address] Mar, [facility] [address] [id number] [address] [place] [address], [place] [address] Mar, [facility] [address] [id number] [address] [place] [address], [place] [address] Mar, [facility] [address] [id number] [address] [place] [address] Feb, [facility] [address] [id number] [address] [place] [address], [place] [address] Feb, [facility] [address] [id number] [address] [place] [address], [place] [address] Feb, [facility] [address] [id number] [address] [place] [address], [place] [address] Feb, [facility] [address] [id number] [address] [place] [address], [place] [address] 14 Jan, 2013 [facility] [address] [id number] [address] [place] [address], [place] [address] 14 Jan, 2013 [facility] [address] [id number] [address] [place] [address], [place] [address] 11 Jan, 2013 [facility] [address] [id number] [address] [place] [address], [place] [address] 11 Jan, 2013 [facility] [address] [id number] [address] [place] [address], [place] [address] 10 Jan, 2012 [facility] [address] [id number] [address] [place] [address], [place] [address] 10 Jan, 2013 [facility] [address] [id number] [address] [place] [address], [place] [address] 09 Jan, 2013 [facility] [address] [id number] [address] [place] [address], [place] [address] 09 Jan, 2013 [facility] [address] [id number] [address] [place] [address], [place] [address] Jan, [facility] [address] [id number] [address] [place] [address], [place] [address] 26 Dec, 2012 [facility] [address] [id number] [address] [place] [address], [place] [address] 16 Dec, 2012 [facility] [address] [id number] [address] [place] [address], [place] [address] 16 Dec, 2012 [facility] [address] [id number] [address] [place] [address], [place] [address] 13 Dec, 2012 [facility] [address] [id number] [address] [place] [address], [place] [address] 17 Nov, 2012 [facility] [address] [id number] [address] [place] [address], [place] [address] 17 Nov, 2012 [facility] [address] [id number] [address] [place] [address], [place] [address] Nov, [facility] [address] [id number] [address] [place] [address], [place] [address] Nov, [facility] [address] [id number] [address] [place] [address], [place] [address] Oct, [facility] [address] [id number] [address] [place] [address], [place] [address] Sep, [facility] [address] [id number] [address] [place] [address], [place] [address] August, [facility] [address] [id number] [address] [place] [address], [place] [address] August, [facility] [address] [id number] [address] [place] [address], [place] [address] August, [facility] [address] [id number] [address] [place] [address], [place] [address] August, [facility] [address] [id number] [address] [place] [address], [place] [address] August, [facility] [address] [id number] [address] [place] [address], [place] [address] August, [facility] [address] [id number] [address] [place] [address], [place] [address] August, [facility] [address] [id number] [address] [place] [address], [place] [address] August, [facility] [address] [id number] [address] [place] [address], [place] [address] August, [facility] [address] [id number] [address] [place] [address], [place] [address] August, [facility] [address] [id number] [address] [place] [address], [place] [address] August, [facility] [address] [id number] [address] [place] [address], [place] [address] August, [facility] [address] [id number] [address] [place] [address], [place] [address] Jul, [facility] [address] [id number] [address] [place] [address], [place] [address] Jul, [facility] [address] [id number] [address] [place] [address], [place] [address] Jul, [facility] [address] [id number] [address] [place] [address], [place] [address] Jul, [facility] [address] [id number] [address] [place] [address], [place] [address] Jul, [facility] [address] [id number] [address] [place] [address], [place] [address] Jul, [facility] [address] [id number] [address] [place] [address], [place] [address] Jul, [facility] [address] [id number] [address] [place] [address], [place] [address] Jul, [facility] [address] [id number] [address] [place] [address], [place] [address] Jul, [facility] [address] [id number] [address] [place] [address], [place] [address] Jul, [facility] [address] [id number] [address] [place] [address], [place] [address] Jul, [facility] [address] [id number] [address] [place] [address], [place] [address] Jun, [facility] [address] [id number] [address] [place] [address], [place] [address] Jun, [facility] [address] [id number] [address] [place] [address], [place] [address] Jun, [facility] [address] [id number] [address] [place] [address], [place] [address] Jun, [facility] [address] [id number] [address] [place] [address], [place] [address] May, [facility] [address] [id number] [address] [place] [address], [place] [address] 14 May, 2012 [facility] [address] [id number] [address] [place] [address], [place] [address] 05 May, 2012 [facility] [address] [id number] [address] [place] [address], [place] [address] 04 May, 2012 [facility] [address] [id number] [address] [place] [address], [place] [address] 04 May, 2012 [facility] [address] [id number] [address] [place] [address], [place] [address] May, [facility] [address] [id number] [address] [place] [address], [place] [address] Apr, [facility] [address] [id number] [address] [place] [address], [place] [address] Apr, [facility] [address] [id number] [address] [place] [address], [place] [address] 30 Apr, 2012 [facility] [address] [id number] [address] [place] [address], [place] [address] Apr, [facility] [address] [id number] [address] [place] [address], [place] [address] 15 Mar, 2012 [facility] [address] [id number] [address] [place] [address], [place] [address] 14 Mar, 2012 [facility] [address] [id number] [address] [place] [address], [place] [address] 14 Mar, 2012 [facility] [address] [id number] [address] [place] [address], [place] [address] 14 Mar, 2012 [facility] [address] [id number] [address] [place] [address], [place] [address] 14 Mar, 2012 [facility] [address] [id number] [address] [place] [address], [place] [address] 06 Mar, 2012 [facility] [address] [id number] [address] [place] [address], [place] [address] Mar, [facility] [address] [id number] [address] [place] [address], [place] [address] Feb, [facility] [address] [id number] [address] [place] [address], [place] [address] Feb, [facility] [address] [id number] [address] [place] [address], [place] [address] Feb, [facility] [address] [id number] [address] [place] [address], [place] [address] Feb, [facility] [address] [id number] [address] [place] [address], [place] [address] Jan, [facility] [address] [id number] [address] [place] [address], [place] [address] Jan, [facility] [address] [id number] [address] [place] [address], [place] [address] Jan, [facility] [address] [id number] [address] [place] [address], [place] [address] Jan, [facility] [address] [id number] [address] [place] [address], [place] [address] Jan, [facility] [address] [id number] [address] [place] [address], [place] [address] Jan, [facility] [address] [id number] [address] [place] [address], [place] [address] Dec, [facility] [address] [id number] [address] [place] [address] Dec, [facility] [address] [id number] [address] [place] [address], [place] [address] Nov, [facility] [address] [id number] [address] [place] [address], [place] [address] Sep, [facility] [address] [id number] [address] [place] [address], [place] [address] August, [facility] [address] [id number] [address] [place] [address], [place] [address] August, [facility] [address] [id number] [address] [place] [address], [place] [address] August, [facility] [address] [id number] [address] [place] [address], [place] [address] August, [facility] [address] [id number] [address] [place] [address], [place] [address] August, [facility] [address] [id number] [address] [place] [address], [place] [address] Jun, [facility] [address] [id number] [address] [place] [address], [place] [address] Jun, [facility] [address] [id number] [address] [place] [address], [place] [address] Apr, [facility] [address] [id number] [address] [place] [address], [place] [address] Apr, [facility] [address] [id number] [address] [place] [address], [place] [address] Mar, [facility] [address] [id number] [address] [place] [address], [place] [address] 22 Feb, 2011 [facility] [address] [id number] [address] [place] [address], [place] [address] 14 Feb, 2011 [facility] [address] [id number] [address] [place] [address], [place] [address] 14 Feb, 2011 [facility] [address] [id number] [address] [place] [address], [place] [address] 17 Jan, 2011 [facility] [address] [id number] [address] [place] [address], [place] [address] 15 Jan, 2011 [facility] [address] [id number] [address] [place] [address], [place] [address] 15 Jan, 2011 [facility] [address] [id number] [address] [place] [address], [place] [address] 14 Jan, 2011 [facility] [address] [facility] [id number] [address] [place] [address] 15 May, 2010 [facility] [address] [facility] [id number] [address] [place] [address] Mar, [facility] [address] [facility] [id number] [address] [place] [address] Oct, [facility] [address] [facility] [id number] [address] [place] [address] Sep, [facility] [address] [facility] [id number] [address] [place] [address] Mar, [facility] [address] [facility] [id number] [address] [place] [phone] Jan, [facility] [address] [facility] [id number] [address] [place] [address] Jan, [facility] [address] [facility] [id number] [address] [place] [address] May, IMMUNIZATIONS No Known Immunizations SOCIAL HISTORY Never Assessed REASON FOR VISIT EMR-[facility] [place] PLAN OF CARE [...]
--- OUTSIDE RECORDS SUMMARY | 2019-11-23 06:03 | XMS REPORT ---
Author Author Liana Coe Doctor Organization [facility] Address Unknown Phone Unavailable Care Team Providers Care [employer] Manager Name Role Phone Migration, Doctor Unavailable Unavailable PROBLEMS Type Condition ICD9-CM Code [id number] Code Onset Dates Condition S tatus SNOMED Code Problem Hematuria, unspecified type R31.9 Ac tive 63913767 Problem Abnormal renal ultrasound R93.429 Acti ve [id number] Problem Anxiety F41.9 Active 47283757 Problem Hypokalemia E87.6 Active 21049602 Problem Abnormal glucose R73.09 Active 102 720520 Problem Chronic pain due to trauma G89.21 Act juanis 547364879 Problem Neuroforaminal stenosis of spine M99.89 Active 905496311215 Problem Neck pain M54.2 Active 63644895 Problem Essential hypertension I10 Active 21704675 Problem Mixed hyperlipidemia E78.2 Active 77735562 ALLERGIES No Information ENCOUNTERS Encounter Location Date Diagnosis [place] [address] [facility] [id number] [address] [place] [id number] May, Neuroforaminal stenosis of s pine M99.89 [place] [address] [facility] [id number] [address] [place] [phone] May, [facility] [address] [facility] [id number] [address] [place] [phone] May, Congestion of nasal sinus R0 9.81 [facility] [address] [facility] [id number] [address] [place] [phone] May, [facility] [address] [facility] [id number] [address] [place] [id number] Apr, Neuroforaminal stenosis of s pine M99.89 [facility] [address] [facility] [id number] [address] [place] [id number] Apr, Neuroforaminal stenosis of s pine M99.89 and Chronic pain due to trauma G89.21 [facility] [address] [id number] [address] [place] [phone] Mar, UTI (urinary tract infection ) N39.0 [facility] [address] [id number] [address] [place] [id number] Mar, Vertigo R42 [facility] [address] [id number] [address] [place] [id number] Mar, Neuroforaminal stenosis of s jose M99.89 [facility] [address] [id number] [address] [place] [phone] Feb, Extensor tendon disruption M 67.89 [facility] [address] [id number] [address] [place] [phone] Feb, Neuroforaminal stenosis of ayla garcia M99.89 and High risk medication use Z79.899 [facility] [address] [id number] [address] [place] [phone] Jan, Hypokalemia E87.6 [facility] [address] [id number] [address] [place] [phone] Jan, Flank pain R10.9 and Acute r ight-sided low back pain without sciatica M54.5 [facility] [address] [id number] [address] [place] [id number] Jan, Hypokalemia E87.6 [facility] [address] [id number] [address] [place] [phone] Jan, [facility] [address] [id number] [address] [place] [phone] Jan, URI, acute J06.9 [facility] [address] [id number] [address] [place] [id number] Jan, Neuroforaminal stenosis of ayla garcia M99.89 [facility] [address] [id number] [address] [place] [phone] 13 Dec, 2017 Lateral epicondylitis, right elbow M77.11 [place] [address] [phone] 11 Dec, 2017 Allergic rhinitis due to monica rosalina, unspecified seasonality J30.1 and Allergic conjunctivitis of both eyes H10.13 [place] [address] [address] 10 Dec, 2017 Neuroforaminal stenosis of s pine M99.89 [place] [address] [address] 06 Dec, 2017 Mixed hyperlipidemia E78.2 [place] [address] [address] 05 Dec, 2017 Abnormal glucose R73.09 ; Ab normal renal ultrasound R93.429 ; Dysuria R30.0 ; Cystitis without hematuria N30.90 ; Hypokalemia E87.6 ; Mixed hyperlipidemia E78.2 and Hematuria, unspecified type R31.9 [place] [address] [address] Nov, Hypokalemia E87.6 ; Mixed hy perlipidemia E78.2 and Hematuria, unspecified type R31.9 [place] [address] [address] Nov, [place] [address] [address] Nov, Hypokalemia E87.6 [place] [address] [address] Nov, [place] [address] [address] Nov, Abnormal renal ultrasound R9 3.429 [place] [address] [address] Nov, Abnormal renal ultrasound R9 3.429 [place] [address] [id number] [address] [place] [phone] 09 Nov, 2017 Hematuria, unspecified type R31.9 and Neuroforaminal stenosis of spine M99.89 [facility] [address] [id number] [address] [place] [address] Nov, Dysuria R30.0 [place] [address] [id number] [address] [place] [phone] Oct, Lateral epicondylitis, right elbow M77.11 [place] [address] [id number] [address] [place] [phone] Oct, Neuroforaminal stenosis of s jose M99.89 ; Visit for TB skin test Z11.1 and Essential hypertension I10 [place] [address] [id number] [address] [place] [phone] Oct, [place] [address] [id number] [address] [place] [phone] Oct, Neuroforaminal stenosis of s pine M99.89 [place] [address] [id number] [address] [place] [phone] Oct, Visit for TB skin test Z11.1 [place] [address] [id number] [address] [place] [id number] 05 Oct, 2017 Cystitis without hematuria N 30.90 [place] [address] [id number] [address] [place] [phone] Sep, Screening breast examination Z12.39 [place] [address] [id number] [address] [place] [phone] Sep, Dysuria R30.0 and Cystitis w ithout hematuria N30.90 [place] [address] [id number] [address] [place] [phone] 14 Sep, 2017 Essential hypertension I10 a nd Neuroforaminal stenosis of spine M99.89 [place] [address] [id number] [address] [place] [phone] Sep, Abnormal glucose R73.09 [place] [address] [id number] [address] [place] [phone] August, Lateral epicondylitis, right elbow M77.11 [place] [address] [id number] [address] [place] [phone] August, Screen for STD (sexually tra nsmitted disease) Z11.3 [place] [address] [id number] [address] [place] [phone] August, Neuroforaminal stenosis of s jose M99.89 ; Mixed hyperlipidemia E78.2 ; Elevated fasting glucose R73.01 ; Screening mammogram, encounter for Z12.31 and Encounter for well woman exam without gynecological exam Z00.00 [place] [address] [id number] [address] [place] [address] August, Neuroforaminal stenosis of s pine M99.89 [place] [address] [id number] [address] [place] [id number] August, Essential hypertension I10 ; Hypokalemia E87.6 and Mixed hyperlipidemia E78.2 [place] [address] [id number] [address] [place] [phone] Jul, [place] [address] [id number] [address] [place] [address] Jul, Neuroforaminal stenosis of s pine M99.89 [place] [address] [id number] [address] [place] [address] Jul, Lateral epicondylitis, right elbow M77.11 [place] [address] [id number] [address] [place] [address] Jul, [place] [address] [id number] [address] [place] [address] Jun, High ankle sprain of right l ower extremity, initial encounter S93.431A [place] [address] [id number] [address] [place] [address] Jun, Essential hypertension I10 [facility] [address] [id number] [address] [place] [phone] Jun, [facility] [address] [id number] [address] [place] [phone] Jun, [facility] [address] [id number] [address] [place] [address] Jun, Neuroforaminal stenosis of s pine M99.89 [facility] [address] [id number] [address] [place] [phone] Jun, Pain of right upper extremit y M79.601 and Essential hypertension I10 [place] [address] [id number] [address] [place] [phone] Jun, [place] [address] [facility] [id number] [address] [place] [address] Jun, Dysuria R30.0 ; Acute cystit is with hematuria N30.01 and Screen for STD (sexually transmitted disease) Z11.3 [place] [address] [id number] [address] [place] [address] May, Chronic pain due to trauma G 89.21 [place] [address] [id number] [address] [place] [phone] May, Essential hypertension I10 [facility] [address] [id number] [address] [place] [id number] May, Neuroforaminal stenosis of s pine M99.89 [facility] [address] [id number] [address] [place] [address] Apr, Allergic reaction, initial e ncounter T78.40XA [facility] [address] [id number] [address] [place] [address] Apr, Low back pain, unspecified b ack pain laterality, unspecified chronicity, with sciatica presence unspecified M54.5 ; Acute cystitis with hematuria N30.01 ; Neuroforaminal stenosis of spine M99.89 ; Bilateral acute serous otitis media, recurrence not specified H65.03 ; Mixed hyperlipidemia E78.2 ; Essential hypertension I10 ; Immunization counseling Z71.89 and Encounter for immunization Z23 [facility] [address] [id number] [address] [place] [id number] 08 Apr, 2017 Neck pain M54.2 [facility] [address] [id number] [address] [place] [id number] 26 Mar, 2017 Neuroforaminal stenosis of s pine M99.89 [place] [address] [id number] [address] [place] [address] Mar, Pharyngitis due to other org anism J02.8 [facility] [address] [id number] [address] [place] [address] Feb, Neuroforaminal stenosis of s pine M99.89 [facility] [address] [id number] [address] [place] [id number] 08 Feb, 2017 UTI (urinary tract infection ) N39.0 [facility] [address] [id number] [address] [place] [address] 07 Feb, 2017 Recent urinary tract infecti on Z87.440 ; Neuroforaminal stenosis of spine M99.89 ; Neck pain M54.2 ; Chronic pain due to trauma G89.21 and Recurrent UTI N39.0 [facility] [address] [id number] [address] [place] [phone] 03 Feb, 2017 [facility] [address] [id number] [address] [place] [phone] Jan, Neuroforaminal stenosis of s pine M99.89 [facility] [address] [id number] [address] [place] [id number] 28 Dec, 2016 Neuroforaminal stenosis of s pine M99.89 [facility] [address] [id number] [address] [place] [id number] 18 Dec, 2016 Acute seasonal allergic rhin itis due to pollen J30.1 [facility] [address] [id number] [address] [place] [address] 08 Dec, 2016 [facility] [address] [id number] [address] [place] [address] 08 Dec, 2016 Acute seasonal allergic rhin itis, unspecified trigger J30.2 ; Allergic conjunctivitis of both eyes H10.13 and Dysfunction of both eustachian tubes H69.83 [facility] [address] [id number] [address] [place] [phone] 07 Dec, 2016 [place] [address] [id number] [address] [place] [address] Dec, Nevus D22.9 [place] [address] [facility] [id number] [address] [place] [phone] Nov, Chronic pain due to trauma G 89.21 and Neuroforaminal stenosis of spine M99.89 [place] [address] [id number] [address] [place] [phone] Nov, Neuroforaminal stenosis of s pine M99.89 ; Essential hypertension I10 ; Mixed hyperlipidemia E78.2 ; Hypokalemia E87.6 ; Neck pain M54.2 and Nevus D22.9 [place] [address] [id number] [address] [place] [phone] Oct, Neuroforaminal stenosis of s pine M99.89 [facility] [address] [id number] [address] [place] [id number] Sep, Neuroforaminal stenosis of s pine M99.89 [place] [address] [id number] [address] [place] [address] Sep, [place] [address] [id number] [address] [place] [phone] August, [facility] [address] [facility] [id number] [address] [place] [phone] August, Neck pain M54.2 and Neurofor aminal stenosis of spine M99.89 [facility] [address] [id number] [address] [place] [address] August, Routine gynecological examin ation Z01.419 and Screening breast examination Z12.39 [facility] [address] [id number] [address] [place] [address] Jul, [facility] [address] [id number] [address] [place] [address] Jul, [facility] [address] [id number] [address] [place] [address] Jul, Neuroforaminal stenosis of s pine M99.89 [facility] [address] [id number] [address] [place] [address] Jul, [facility] [address] [id number] [address] [place] [id number] Jul, Neuroforaminal stenosis of l umbar 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 [facility] [address] [id number] [address] [place] [address] Jul, [facility] [address] [id number] [address] [place] [address] Jul, [facility] [address] [id number] [address] [place] [address] Jun, Neuroforaminal stenosis of s pine M99.89 [facility] [address] [id number] [address] [place] [id number] Jun, Uterine leiomyoma, unspecifi ed location D25.9 and Allergic reaction caused by a drug, initial encounter T78.40XA [facility] [address] [id number] [address] [place] [address] Jun, [facility] [address] [id number] [address] [place] [address] May, UTI symptoms R39.9 and Pain of right sacroiliac joint M53.3 [place] [address] [id number] [address] [place] [phone] May, Neuroforaminal stenosis of s jose M99.89 [place] [address] [id number] [address] [place] [phone] May, [place] [address] [facility] [id number] [address] [place] [address] May, Acute mucoid otitis media of left ear H65.112 and Acute non- recurrent maxillary sinusitis J01.00 [place] [address] [facility] [id number] [address] [place] [address] May, Acute bacterial conjunctivit is of both eyes H10.33 ; Left arm pain M79.602 and Hypokalemia E87.6 [place] [address] [facility] [id number] [address] [place] [address] Apr, [place] [address] [id number] [address] [place] [address] Apr, Neuroforaminal stenosis of s pine M99.89 ; Neck pain M54.2 ; Chronic pain due to trauma G89.21 ; Mixed hyperlipidemia E78.2 ; Essential hypertension I10 and Hypokalemia E87.6 [place] [address] [facility] [id number] [address] [place] [address] Mar, Oral candidiasis B37.0 ; Nathaniel roforaminal stenosis of spine M99.89 ; Neck pain M54.2 and Chronic pain due to trauma G89.21 [place] [address] [facility] [id number] [address] [place] [phone] Feb, [place] [address] [facility] [id number] [address] [place] [address] Feb, [place] [address] [facility] [id number] [address] [place] [id number] Feb, UTI (urinary tract infection ) N39.0 [facility] [address] [id number] [address] [place] [id number] 09 Feb, 2016 Dysuria R30.0 [facility] [address] [id number] [address] [place] [address] 08 Feb, 2016 Dysuria R30.0 [facility] [address] [id number] [address] [place] [phone] Feb, Neuroforaminal stenosis of s pine M99.89 ; Neck pain M54.2 ; Essential hypertension I10 ; Chronic pain due to trauma G89.21 ; Dysuria R30.0 ; Abnormal MRI, shoulder R93.8 and Acute cystitis without hematuria N30.00 [facility] [address] [id number] [address] [place] [phone] Jan, [facility] [address] [id number] [address] [place] [phone] Jan, [facility] [address] [id number] [address] [place] [address] Jan, [facility] [address] [id number] [address] [place] [phone] Jan, Abnormal MRI R93.8 [facility] [address] [id number] [address] [place] [id number] 29 Dec, 2015 [facility] [address] [id number] [address] [place] [phone] 15 Dec, 2015 Acute pain of left shoulder M25.512 [facility] [address] [id number] [address] [place] [phone] 09 Dec, 2015 [facility] [address] [id number] [address] [place] [address] 08 Dec, 2015 [facility] [address] [id number] [address] [place] [address] 07 Dec, 2015 Acute pain of left shoulder M25.512 [facility] [address] [id number] [address] [place] [address] Nov, [facility] [address] [id number] [address] [place] [id number] Nov, Neuroforaminal stenosis of s pine M99.89 ; Neck pain M54.2 ; Abnormal mammogram R92.8 ; Essential hypertension I10 and Chronic pain due to trauma G89.21 [facility] [address] [id number] [address] [place] [phone] Nov, [facility] [address] [id number] [address] [place] [address] Oct, Acute stress disorder F43.0 [facility] [address] [id number] [address] [place] [phone] Oct, [facility] [address] [id number] [address] [place] [phone] Oct, [facility] [address] [id number] [address] [place] [phone] Oct, [facility] [address] [id number] [address] [place] [phone] Sep, [facility] [address] [id number] [address] [place] [address] August, [facility] [address] [id number] [address] [place] [id number] Jul, Neuroforaminal stenosis of s pine M99.89 ; Neck pain M54.2 ; Abnormal mammogram R92.8 and Essential hypertension I10 [facility] [address] [id number] [address] [place] [phone] Jul, [facility] [address] [id number] [address] [place] [id number] Jul, [facility] [address] [id number] [address] [place] [phone] Jul, Abnormal mammogram R92.8 [facility] [address] [id number] [address] [place] [id number] 08 Jul, 2015 [facility] [address] [facility] [id number] [address] [place] [phone] Jul, UTI (urinary tract infection ) N39.0 [facility] [address] [facility] [id number] [address] [place] [address] Jul, Dysuria R30.0 [facility] [address] [facility] [id number] [address] [place] [phone] Jun, [facility] [address] [facility] [id number] [address] [place] [id number] Jun, [facility] [address] [place] [id number] [address] [place] [phone] Jun, Hypokalemia E87.6 and Hematu martina R31.9 [place] [address] [place] [id number] [address] [place] [phone] Jun, Hypokalemia E87.6 [facility] [address] [facility] [id number] [address] [place] [phone] Jun, [facility] [address] [place] [id number] [address] [place] [phone] Jun, Hypokalemia E87.6 [facility] [address] [place] [id number] [address] [place] [phone] Jun, Hypokalemia E87.6 [facility] [address] [place] [id number] [address] [place] [id number] 15 Jun, 2015 Neuroforaminal stenosis of s pine M99.89 ; Hypokalemia E87.6 ; Neck pain M54.2 ; Essential hypertension I10 ; Mixed hyperlipidemia E78.2 and Screening breast examination Z12.39 [place] [address] [facility] [id number] [address] [place] [id number] 08 Jun, 2015 Dysuria R30.0 ; UTI (urinary tract infection) N39.0 and Hematuria R31.9 [place] [address] [facility] [id number] [address] [place] [phone] May, [facility] [address] [place] [id number] [place] [phone] 18 May, 2015 High risk sexual behavior Z7 2.51 ; Hypokalemia E87.6 ; Neuroforaminal stenosis of spine M99.89 ; Neck pain M54.2 ; Essential hypertension I10 ; Mixed hyperlipidemia E78.2 ; STD exposure Z20.2 and Concern about STD in female without diagnosis Z71.1 [facility] [address] [facility] [id number] [address] [place] [phone] 16 May, 2015 Neuroforaminal stenosis of s pine M99.89 ; Neck pain M54.2 ; Hypokalemia E87.6 ; Essential hypertension I10 and Mixed hyperlipidemia E78.2 [facility] [address] [place] [id number] [address] [place] [phone] May, [facility] [address] [facility] [id number] [address] [place] [phone] 08 May, 2015 High risk sexual behavior Z7 2.51 ; STD exposure Z20.2 and Concern about STD in female without diagnosis Z71.1 [facility] [address] [facility] [id number] [address] [place] [id number] May, [facility] [address] [facility] [id number] [address] [place] [phone] Apr, Neuroforaminal stenosis of s pine M99.89 ; Mixed hyperlipidemia E78.2 ; Essential hypertension I10 and Hypokalemia E87.6 [facility] [address] [facility] [id number] [address] [place] [phone] Mar, [facility] [address] [facility] [id number] [address] [place] [phone] Mar, Hypokalemia E87.6 [facility] [address] [facility] [id number] [address] [place] [phone] Mar, Neuroforaminal stenosis of s pine M99.89 ; Mixed hyperlipidemia E78.2 ; Neck pain M54.2 ; Essential hypertension I10 ; Abnormal fasting glucose R73.09 ; Hypokalemia E87.6 and Constipation K59.00 [facility] [address] [facility] [id number] [address] [place] [phone] Feb, Neuroforaminal stenosis of s pine M99.89 ; Mixed hyperlipidemia E78.2 ; Neck pain M54.2 ; Essential hypertension I10 ; Abnormal fasting glucose R73.09 ; Hypokalemia E87.6 and Constipation K59.00 [facility] [address] [facility] [id number] [address] [place] [phone] Feb, Elevated fasting blood sugar R73.01 [facility] [address] [facility] [id number] [address] [place] [phone] Feb, Elevated fasting blood sugar R73.01 [facility] [address] [facility] [id number] [address] [place] [phone] Feb, Hair loss L65.9 [facility] [place] [address] [facility] [id number] [address] [place] [id number] Feb, Sinusitis J32.9 ; Essential hypertension I10 and Hair loss L65.9 [facility] [address] [facility] [id number] [address] [place] [phone] Jan, [facility] [address] [facility] [id number] [address] [place] [phone] Jan, Essential hypertension I10 ; Neuroforaminal stenosis of spine M99.89 ; Neck pain M54.2 ; Mixed hyperlipidemia E78.2 and Anxiety F41.9 [facility] [address] [facility] [id number] [address] [place] [id number] Jan, [facility] [address] [facility] [id number] [address] [place] [address] Jan, Mixed hyperlipidemia E78.2 ; Essential (primary) hypertension I10 ; Strain of muscle, fascia and tendon at neck level, subsequent encounter S16.1XXD and Tension-type headache, unspecified, not intractable G44.209 [facility] [address] [id number] [address] [place] [phone] Dec, Lumbar back pain 724.2 and N euroforaminal stenosis of spine 724.00 [facility] [address] [id number] [address] [place] [id number] Nov, [facility] [address] [id number] [address] [place] [phone] Nov, Lumbar back pain 724.2 and N euroforaminal stenosis of spine 724.00 [place] [address] [facility] [id number] [address] [place] [phone] Nov, Edema 782.3 ; Lumbar back pa in 724.2 ; Essential hypertension, benign 401.1 ; Hyperlipemia 272.4 ; Neuroforaminal stenosis of spine 724.00 and Post-concussion headache 339.20 [facility] [address] [id number] [address] [place] [address] Nov, [facility] [address] [facility] [id number] [address] [place] [phone] Nov, [facility] [address] [facility] [id number] [address] [place] [address] Oct, Essential hypertension, sheridan gn 401.1 [facility] [address] [facility] [id number] [address] [place] [phone] Oct, Edema 782.3 ; Lumbar back pa in 724.2 ; Essential hypertension, benign 401.1 ; Hyperlipemia 272.4 ; Neuroforaminal stenosis of spine 724.00 and Post-concussion headache 339.20 [facility] [address] [facility] [id number] [address] [place] [id number] Oct, [facility] [address] [facility] [id number] [address] [place] [phone] Oct, Edema 782.3 [facility] [address] [id number] [address] [place] [phone] Oct, Lumbar back pain 724.2 [facility] [address] [id number] [address] [place] [phone] Oct, Cervicalgia 723.1 ; Lumbar b ack pain 724.2 and High risk medication use V58.69 [facility] [address] [id number] [address] [place] [phone] Sep, [facility] [address] [id number] [address] [place] [phone] Sep, Lumbar strain 847.2 [facility] [address] [facility] [id number] [address] [place] [phone] August, Edema 782.3 and Eustachian t ube dysfunction 381.81 [facility] [address] [facility] [id number] [address] [place] [phone] August, [facility] [address] [id number] [address] [place] [phone] August, Eustachian tube dysfunction 381.81 [facility] [address] [id number] [address] [place] [phone] Jul, Otalgia 388.70 and Otitis me jonathon 382.9 [facility] [address] [id number] [address] [place] [phone] Jul, [facility] [address] [id number] [address] [place] [id number] Jul, [facility] [address] [id number] [address] [place] [phone] Jul, [facility] [address] [facility] [id number] [address] [place] [phone] Jul, [facility] [address] [facility] [id number] [address] [place] [id number] Jul, [facility] [address] [id number] [address] [place] [address], [place] [address] Jun, [facility] [address] [id number] [address] [place] [address], [place] [address] 27 Jun, 2014 [facility] [address] [id number] [address] [place] [address], [place] [address] Jun, [facility] [address] [id number] [address] [place] [address], [place] [address] May, 2014 [facility] [address] [id number] [address] [place] [address], [place] [address] May, 2014 [facility] [address] [id number] [address] [place] [address], [place] [address] May, 2014 [facility] [address] [id number] [address] [place] [address], [place] [address] May, 2014 [facility] [address] [id number] [address] [place] [address], [place] [address] May, 2014 [facility] [address] [id number] [address] [place] [address], [place] [address] May, [facility] [address] [id number] [address] [place] [address], [place] [address] May, [facility] [address] [id number] [address] [place] [address], [place] [address] May, [facility] [address] [id number] [address] [place] [address], [place] [address] May, [facility] [address] [id number] [address] [place] [address], [place] [address] May, [facility] [address] [id number] [address] [place] [address], [place] [address] Apr, [facility] [address] [id number] [address] [place] [address], [place] [address] Apr, [facility] [address] [id number] [address] [place] [phone] Apr, [facility] [address] [id number] [address] [place] [address], [place] [address] Apr, [facility] [address] [id number] [address] [place] [address], [place] [address] Apr, [facility] [address] [id number] [address] [place] [address], [place] [address] Apr, [facility] [address] [id number] [address] [place] [address], [place] [address] Apr, [facility] [address] [id number] [address] [place] [address], [place] [address] Apr, [facility] [address] [id number] [address] [place] [address], [place] [address] Apr, [facility] [address] [id number] [address] [place] [address], [place] [address] Apr, [facility] [address] [id number] [address] [place] [address], [place] [address] Apr, [facility] [address] [id number] [address] [place] [address], [place] [address] Apr, [facility] [address] [id number] [address] [place] [address], [place] [address] Apr, [facility] [address] [id number] [address] [place] [address], [place] [address] Apr, [facility] [address] [id number] [address] [place] [address], [place] [address] Apr, [facility] [address] [id number] [address] [place] [address], [place] [address] Mar, [facility] [address] [id number] [address] [place] [address], [place] [address] Mar, [facility] [address] [id number] [address] [place] [address], [place] [address] Mar, [facility] [address] [id number] [address] [place] [address], [place] [address] Mar, [facility] [address] [id number] [address] [place] [address], [place] [address] Feb, [facility] [address] [id number] [address] [place] [address], [place] [address] Feb, [facility] [address] [id number] [address] [place] [address], [place] [address] Feb, [facility] [address] [id number] [address] [place] [address], [place] [address] Feb, [facility] [address] [id number] [address] [place] [address], [place] [address] Jan, [facility] [address] [id number] [address] [place] [address], [place] [address] Jan, [facility] [address] [id number] [address] [place] [address], [place] [address] Jan, [facility] [address] [id number] [address] [place] [address], [place] [address] Jan, [facility] [address] [id number] [address] [place] [address], [place] [address] Jan, [facility] [address] [id number] [address] [place] [address], [place] [address] Jan, [facility] [address] [id number] [address] [place] [address], [place] [address] Jan, [facility] [address] [id number] [address] [place] [address], [place] [address] Jan, [facility] [address] [id number] [address] [place] [address], [place] [address] Dec, [facility] [address] [id number] [address] [place] [address], [place] [address] Dec, [facility] [address] [id number] [address] [place] [address], [place] [address] Dec, [facility] [address] [id number] [address] [place] [address], [place] [address] Dec, 2013 [facility] [address] [id number] [address] [place] [address], [place] [address] Oct, 2013 [facility] [address] [id number] [address] [place] [address], [place] [address] Oct, 2013 [facility] [address] [id number] [address] [place] [address], [place] [address] Oct, 2013 [facility] [address] [id number] [address] [place] [address], [place] [address] Oct, 2013 [facility] [address] [id number] [address] [place] [address], [place] [address] Oct, 2013 [facility] [address] [id number] [address] [place] [address], [place] [address] Oct, 2013 [facility] [address] [id number] [address] [place] [address], [place] [address] Oct, 2013 [facility] [address] [id number] [address] [place] [address], [place] [address] Oct, [facility] [address] [id number] [address] [place] [address], [place] [address] Sep, [facility] [address] [id number] [address] [place] [address], [place] [address] Sep, [facility] [address] [id number] [address] [place] [address], [place] [address] Sep, [facility] [address] [id number] [address] [place] [address], [place] [address] Sep, [facility] [address] [id number] [address] [place] [address], [place] [address] Sep, [facility] [address] [id number] [address] [place] [address], [place] [address] Sep, [facility] [address] [id number] [address] [place] [address], [place] [address] Sep, [facility] [address] [id number] [address] [place] [address], [place] [address] Sep, [facility] [address] [id number] [address] [place] [address], [place] [address] Sep, [facility] [address] [id number] [address] [place] [address], [place] [address] Sep, [facility] [address] [id number] [address] [place] [address], [place] [address] August, [facility] [address] [id number] [address] [place] [address], [place] [address] August, [facility] [address] [id number] [address] [place] [address], [place] [address] August, [facility] [address] [id number] [address] [place] [address], [place] [address] August, [facility] [address] [id number] [address] [place] [address], [place] [address] August, [facility] [address] [id number] [address] [place] [address], [place] [address] August, [facility] [address] [id number] [address] [place] [address], [place] [address] August, [facility] [address] [id number] [address] [place] [address], [place] [address] August, [facility] [address] [id number] [address] [place] [address], [place] [address] August, [facility] [address] [id number] [address] [place] [address], [place] [address] August, [facility] [address] [id number] [address] [place] [address], [place] [address] August, [facility] [address] [id number] [address] [place] [address], [place] [address] August, [facility] [address] [id number] [address] [place] [address], [place] [address] Jul, [facility] [address] [id number] [facility] [place] [address] Jul, [facility] [address] [id number] [address] [place] [address], [place] [address] Jul, [facility] [address] [id number] [address] [place] [address], [place] [address] Jul, [facility] [address] [id number] [address] [place] [address], [place] [address] Jul, [facility] [address] [id number] [address] [place] [address], [place] [address] Jul, [facility] [address] [id number] [address] [place] [address], [place] [address] Jun, [facility] [address] [id number] [address] [place] [address], [place] [address] Jun, [facility] [address] [id number] [address] [place] [address], [place] [address] May, [facility] [address] [id number] [address] [place] [address], [place] [address] May, [facility] [address] [id number] [address] [place] [address], [place] [address] Apr, [facility] [address] [id number] [address] [place] [address], [place] [address] Apr, [facility] [address] [id number] [address] [place] [address], [place] [address] Apr, [facility] [address] [id number] [address] [place] [address], [place] [address] Apr, [facility] [address] [id number] [address] [place] [address], [place] [address] Apr, [facility] [address] [id number] [address] [place] [address] [address] Apr, [facility] [address] [id number] [address] [place] [address], [place] [address] Apr, [facility] [address] [id number] [address] [place] [address], [place] [address] Apr, [facility] [address] [id number] [address] [place] [address], [place] [address] Apr, [facility] [address] [id number] [address] [place] [address], [place] [address] Apr, [facility] [address] [id number] [address] [place] [address], [place] [address] Apr, [facility] [address] [id number] [address] [place] [address], [place] [address] Apr, [facility] [address] [id number] [address] [place] [address], [place] [address] Apr, [facility] [address] [id number] [address] [place] [address], [place] [address] Mar, [facility] [address] [id number] [address] [place] [address], [place] [address] Mar, [facility] [address] [id number] [address] [place] [address], [place] [address] Mar, [facility] [address] [id number] [address] [place] [address], [place] [address] Mar, [facility] [address] [id number] [address] [place] [address] Feb, [facility] [address] [id number] [address] [place] [address], [place] [address] Feb, [facility] [address] [id number] [address] [place] [address], [place] [address] Feb, [facility] [address] [id number] [address] [place] [address], [place] [address] Feb, [facility] [address] [id number] [address] [place] [address], [place] [address] 14 Jan, 2013 [facility] [address] [id number] [address] [place] [address], [place] [address] 14 Jan, 2013 [facility] [address] [id number] [address] [place] [address], [place] [address] 11 Jan, 2013 [facility] [address] [id number] [address] [place] [address], [place] [address] 11 Jan, 2013 [facility] [address] [id number] [address] [place] [address], [place] [address] 10 Jan, 2012 [facility] [address] [id number] [address] [place] [address], [place] [address] 10 Jan, 2013 [facility] [address] [id number] [address] [place] [address], [place] [address] 09 Jan, 2013 [facility] [address] [id number] [address] [place] [address], [place] [address] 09 Jan, 2013 [facility] [address] [id number] [address] [place] [address], [place] [address] Jan, [facility] [address] [id number] [address] [place] [address], [place] [address] 26 Dec, 2012 [facility] [address] [id number] [address] [place] [address], [place] [address] 16 Dec, 2012 [facility] [address] [id number] [address] [place] [address], [place] [address] 16 Dec, 2012 [facility] [address] [id number] [address] [place] [address], [place] [address] 13 Dec, 2012 [facility] [address] [id number] [address] [place] [address], [place] [address] 17 Nov, 2012 [facility] [address] [id number] [address] [place] [address], [place] [address] 17 Nov, 2012 [facility] [address] [id number] [address] [place] [address], [place] [address] Nov, [facility] [address] [id number] [address] [place] [address], [place] [address] Nov, [facility] [address] [id number] [address] [place] [address], [place] [address] Oct, [facility] [address] [id number] [address] [place] [address], [place] [address] Sep, [facility] [address] [id number] [address] [place] [address], [place] [address] August, [facility] [address] [id number] [address] [place] [address], [place] [address] August, [facility] [address] [id number] [address] [place] [address], [place] [address] August, [facility] [address] [id number] [address] [place] [address], [place] [address] August, [facility] [address] [id number] [address] [place] [address], [place] [address] August, [facility] [address] [id number] [address] [place] [address], [place] [address] August, [facility] [address] [id number] [address] [place] [address], [place] [address] August, [facility] [address] [id number] [address] [place] [address], [place] [address] August, [facility] [address] [id number] [address] [place] [address], [place] [address] August, [facility] [address] [id number] [address] [place] [address], [place] [address] August, [facility] [address] [id number] [address] [place] [address], [place] [address] August, [facility] [address] [id number] [address] [place] [address], [place] [address] August, [facility] [address] [id number] [address] [place] [address], [place] [address] Jul, [facility] [address] [id number] [address] [place] [address], [place] [address] Jul, [facility] [address] [id number] [address] [place] [address], [place] [address] Jul, [facility] [address] [id number] [address] [place] [address], [place] [address] Jul, [facility] [address] [id number] [address] [place] [address], [place] [address] Jul, [facility] [address] [id number] [address] [place] [address], [place] [address] Jul, [facility] [address] [id number] [address] [place] [address], [place] [address] Jul, [facility] [address] [id number] [address] [place] [address], [place] [address] Jul, [facility] [address] [id number] [address] [place] [address], [place] [address] Jul, [facility] [address] [id number] [address] [place] [address], [place] [address] Jul, [facility] [address] [id number] [address] [place] [address], [place] [address] Jul, [facility] [address] [id number] [address] [place] [address], [place] [address] Jun, [facility] [address] [id number] [address] [place] [address], [place] [address] Jun, [facility] [address] [id number] [address] [place] [address], [place] [address] Jun, [facility] [address] [id number] [address] [place] [address], [place] [address] Jun, [facility] [address] [id number] [address] [place] [address], [place] [address] May, [facility] [address] [id number] [address] [place] [address], [place] [address] 14 May, 2012 [facility] [address] [id number] [address] [place] [address], [place] [address] 05 May, 2012 [facility] [address] [id number] [address] [place] [address], [place] [address] 04 May, 2012 [facility] [address] [id number] [address] [place] [address], [place] [address] 04 May, 2012 [facility] [address] [id number] [address] [place] [address], [place] [address] May, [facility] [address] [id number] [address] [place] [address], [place] [address] Apr, [facility] [address] [id number] [address] [place] [address], [place] [address] Apr, [facility] [address] [id number] [address] [place] [address], [place] [address] 30 Apr, 2012 [facility] [address] [id number] [address] [place] [address], [place] [address] Apr, [facility] [address] [id number] [address] [place] [address], [place] [address] 15 Mar, 2012 [facility] [address] [id number] [address] [place] [address], [place] [address] 14 Mar, 2012 [facility] [address] [id number] [address] [place] [address], [place] [address] 14 Mar, 2012 [facility] [address] [id number] [address] [place] [address], [place] [address] 14 Mar, 2012 [facility] [address] [id number] [address] [place] [address], [place] [address] 14 Mar, 2012 [facility] [address] [id number] [address] [place] [address], [place] [address] 06 Mar, 2012 [facility] [address] [id number] [address] [place] [address], [place] [address] Mar, [facility] [address] [id number] [address] [place] [address], [place] [address] Feb, [facility] [address] [id number] [address] [place] [address], [place] [address] Feb, [facility] [address] [id number] [address] [place] [address], [place] [address] Feb, [facility] [address] [id number] [address] [place] [address], [place] [address] Feb, [facility] [address] [id number] [address] [place] [address], [place] [address] Jan, [facility] [address] [id number] [address] [place] [address], [place] [address] Jan, [facility] [address] [id number] [address] [place] [address], [place] [address] Jan, [facility] [address] [id number] [address] [place] [address], [place] [address] Jan, [facility] [address] [id number] [address] [place] [address], [place] [address] Jan, [facility] [address] [id number] [address] [place] [address], [place] [address] Jan, [facility] [address] [id number] [address] [place] [address], [place] [address] Dec, [facility] [address] [id number] [address] [place] [phone] Dec, [facility] [address] [id number] [address] [place] [address], [place] [address] Nov, [facility] [address] [id number] [address] [place] [address], [place] [address] Sep, [facility] [address] [id number] [address] [place] [address], [place] [address] August, [facility] [address] [id number] [address] [place] [address], [place] [address] August, [facility] [address] [id number] [address] [place] [address], [place] [address] August, [facility] [address] [id number] [address] [place] [address], [place] [address] August, [facility] [address] [id number] [address] [place] [address], [place] [address] August, [facility] [address] [id number] [address] [place] [address], [place] [address] Jun, [facility] [address] [id number] [address] [place] [address], [place] [address] Jun, [facility] [address] [id number] [address] [place] [address], [place] [address] Apr, [facility] [address] [id number] [address] [place] [address], [place] [address] Apr, [facility] [address] [id number] [address] [place] [address], [place] [address] Mar, [facility] [address] [id number] [address] [place] [address], [place] [address] 22 Feb, 2011 [facility] [address] [id number] [address] [place] [address], [place] [address] 14 Feb, 2011 [facility] [address] [id number] [address] [place] [address], [place] [address] 14 Feb, 2011 [facility] [address] [id number] [address] [place] [address], [place] [address] 17 Jan, 2011 [facility] [address] [id number] [address] [place] [address], [place] [address] 15 Jan, 2011 [facility] [address] [id number] [address] [place] [address], [place] [address] 15 Jan, 2011 [facility] [address] [id number] [address] [place] [address], [place] [address] 14 Jan, 2011 [facility] [address] [facility] [id number] [address] [place] [id number] 15 May, 2010 [facility] [address] [facility] [id number] [address] [place] [address] Mar, [facility] [address] [facility] [id number] [address] [place] [address] Oct, [facility] [address] [facility] [id number] [address] [place] [address] Sep, [facility] [address] [facility] [id number] [address] [place] [phone] Mar, [facility] [address] [facility] [id number] [address] [place] [phone] Jan, [facility] [address] [facility] [id number] [address] [place] [phone] Jan, [facility] [address] [facility] [id number] [address] [place] [phone] May, IMMUNIZATIONS No Known Immunizations SOCIAL HISTORY Never Assessed REASON FOR VISIT EMR-[facility] PLAN OF CARE VITAL SIGNS MEDICATIONS Unknown Medications RESULTS No Results PROCEDURES No Known procedures INSTRUCTIONS MEDICATIONS ADMINISTERED No Known Medications MEDICAL (GENERAL) HISTORY Type Description Date Medical History hypertension Medical History Colposcopy with loop electro de excision of the cervix was performed 06/2012, mild squamous atypia (no definite dyplasia). Performed at [facility] Dr. Joy. Medical History Acute suppurative [...]
--- OUTSIDE RECORDS SUMMARY | 2019-11-23 06:03 | XMS REPORT ---
Author Author Liana Coe Doctor Organization [facility] Address Unknown Phone Unavailable Care Team Providers Care Immigration Law Specialist Name Role Phone Migration, Doctor Unavailable Unavailable PROBLEMS Type Condition ICD9-CM Code WOV30-XB Code Onset Dates Condition S tatus SNOMED Code Problem Hematuria, unspecified type R31.9 Ac tive 92572631 Problem Abnormal renal ultrasound R93.429 Acti ve [id number] Problem Anxiety F41.9 Active 20680769 Problem Hypokalemia E87.6 Active 44797209 Problem Abnormal glucose R73.09 Active 102 136305 Problem Chronic pain due to trauma G89.21 Act juanis 344087005 Problem Neuroforaminal stenosis of spine M99.89 Active 600809360630 Problem Neck pain M54.2 Active 74755278 Problem Essential hypertension I10 Active 04485243 Problem Mixed hyperlipidemia E78.2 Active 80624131 ALLERGIES No Information ENCOUNTERS Encounter Location Date Diagnosis [place] [address] [facility] [id number] [address] [place] [id number] May, Neuroforaminal stenosis of s pine M99.89 [place] [address] [facility] [id number] [address] [place] [phone] May, [facility] [address] [facility] [id number] [address] [place] [phone] May, Congestion of nasal sinus R0 9.81 [facility] [address] [facility] [id number] [address] [place] [phone] May, [facility] [address] [facility] [id number] [address] [place] [address] Apr, Neuroforaminal stenosis of s pine M99.89 [facility] [address] [facility] [id number] [address] [place] [phone] Apr, Neuroforaminal stenosis of s pine M99.89 and Chronic pain due to trauma G89.21 [facility] [address] [id number] [address] [place] [phone] Mar, UTI (urinary tract infection ) N39.0 [facility] [address] [id number] [address] [place] [phone] Mar, Vertigo R42 [facility] [address] [id number] [address] [place] [phone] Mar, Neuroforaminal stenosis of s jose M99.89 [facility] [address] [id number] [address] [place] [phone] Feb, Extensor tendon disruption M 67.89 [facility] [address] [id number] [address] [place] [phone] Feb, Neuroforaminal stenosis of ayla garcia M99.89 and High risk medication use Z79.899 [facility] [address] [id number] [address] [place] [phone] Jan, Hypokalemia E87.6 [facility] [address] [id number] [address] [place] [phone] Jan, Flank pain R10.9 and Acute r ight-sided low back pain without sciatica M54.5 [facility] [address] [id number] [address] [place] [phone] Jan, Hypokalemia E87.6 [facility] [address] [id number] [address] [place] [phone] Jan, [facility] [address] [id number] [address] [place] [phone] Jan, URI, acute J06.9 [facility] [address] [id number] [address] [place] [id number] Jan, Neuroforaminal stenosis of ayla garcia M99.89 [facility] [address] [id number] [address] [place] [id number] 13 Dec, 2017 Lateral epicondylitis, right elbow M77.11 [place] [address] [address] 11 Dec, 2017 Allergic rhinitis due to monica rosalina, unspecified seasonality J30.1 and Allergic conjunctivitis of both eyes H10.13 [place] [address] [id number] 10 Dec, 2017 Neuroforaminal stenosis of s pine M99.89 [place] [address] [address] 06 Dec, 2017 Mixed hyperlipidemia E78.2 [place] [address] [address] 05 Dec, 2017 Abnormal glucose R73.09 ; Ab normal renal ultrasound R93.429 ; Dysuria R30.0 ; Cystitis without hematuria N30.90 ; Hypokalemia E87.6 ; Mixed hyperlipidemia E78.2 and Hematuria, unspecified type R31.9 [place] [address] [address] Nov, Hypokalemia E87.6 ; Mixed hy perlipidemia E78.2 and Hematuria, unspecified type R31.9 [place] [address] [address] Nov, [place] [address] [address] Nov, Hypokalemia E87.6 [place] [address] [address] Nov, [place] [address] [address] Nov, Abnormal renal ultrasound R9 3.429 [place] [address] [address] Nov, Abnormal renal ultrasound R9 3.429 [place] [address] [id number] [address] [place] [id number] 09 Nov, 2017 Hematuria, unspecified type R31.9 and Neuroforaminal stenosis of spine M99.89 [facility] [address] [id number] [address] [place] [phone] Nov, Dysuria R30.0 [place] [address] [id number] [address] [place] [phone] Oct, Lateral epicondylitis, right elbow M77.11 [place] [address] [id number] [address] [place] [phone] Oct, Neuroforaminal stenosis of s jose M99.89 ; Visit for TB skin test Z11.1 and Essential hypertension I10 [place] [address] [id number] [address] [place] [phone] Oct, [place] [address] [id number] [address] [place] [phone] Oct, Neuroforaminal stenosis of s pine M99.89 [place] [address] [id number] [address] [place] [phone] Oct, Visit for TB skin test Z11.1 [place] [address] [id number] [address] [place] [id number] 05 Oct, 2017 Cystitis without hematuria N 30.90 [place] [address] [id number] [address] [place] [id number] Sep, Screening breast examination Z12.39 [place] [address] [id number] [address] [place] [phone] Sep, Dysuria R30.0 and Cystitis w ithout hematuria N30.90 [place] [address] [id number] [address] [place] [id number] 14 Sep, 2017 Essential hypertension I10 a nd Neuroforaminal stenosis of spine M99.89 [place] [address] [id number] [address] [place] [address] Sep, Abnormal glucose R73.09 [place] [address] [id number] [address] [place] [id number] August, Lateral epicondylitis, right elbow M77.11 [place] [address] [id number] [address] [place] [phone] August, Screen for STD (sexually tra nsmitted disease) Z11.3 [place] [address] [id number] [address] [place] [address] August, Neuroforaminal stenosis of s jose M99.89 ; Mixed hyperlipidemia E78.2 ; Elevated fasting glucose R73.01 ; Screening mammogram, encounter for Z12.31 and Encounter for well woman exam without gynecological exam Z00.00 [place] [address] [id number] [address] [place] [id number] August, Neuroforaminal stenosis of s pine M99.89 [place] [address] [id number] [address] [place] [id number] August, Essential hypertension I10 ; Hypokalemia E87.6 and Mixed hyperlipidemia E78.2 [place] [address] [id number] [address] [place] [phone] Jul, [place] [address] [id number] [address] [place] [id number] Jul, Neuroforaminal stenosis of s pine M99.89 [place] [address] [id number] [address] [place] [id number] Jul, Lateral epicondylitis, right elbow M77.11 [place] [address] [id number] [address] [place] [phone] Jul, [place] [address] [id number] [address] [place] [phone] Jun, High ankle sprain of right l ower extremity, initial encounter S93.431A [place] [address] [id number] [address] [place] [phone] Jun, Essential hypertension I10 [facility] [address] [id number] [address] [place] [phone] Jun, [facility] [address] [id number] [address] [place] [id number] Jun, [facility] [address] [id number] [address] [place] [id number] Jun, Neuroforaminal stenosis of s pine M99.89 [facility] [address] [id number] [address] [place] [phone] Jun, Pain of right upper extremit y M79.601 and Essential hypertension I10 [place] [address] [id number] [address] [place] [address] Jun, [place] [address] [facility] [id number] [address] [place] [id number] Jun, Dysuria R30.0 ; Acute cystit is with hematuria N30.01 and Screen for STD (sexually transmitted disease) Z11.3 [place] [address] [id number] [address] [place] [address] May, Chronic pain due to trauma G 89.21 [place] [address] [id number] [address] [place] [address] May, Essential hypertension I10 [facility] [address] [id number] [address] [place] [id number] May, Neuroforaminal stenosis of s pine M99.89 [facility] [address] [id number] [address] [place] [id number] Apr, Allergic reaction, initial e ncounter T78.40XA [facility] [address] [id number] [address] [place] [id number] Apr, Low back pain, unspecified b ack pain laterality, unspecified chronicity, with sciatica presence unspecified M54.5 ; Acute cystitis with hematuria N30.01 ; Neuroforaminal stenosis of spine M99.89 ; Bilateral acute serous otitis media, recurrence not specified H65.03 ; Mixed hyperlipidemia E78.2 ; Essential hypertension I10 ; Immunization counseling Z71.89 and Encounter for immunization Z23 [facility] [address] [id number] [address] [place] [id number] 08 Apr, 2017 Neck pain M54.2 [facility] [address] [id number] [address] [place] [id number] 26 Mar, 2017 Neuroforaminal stenosis of s pine M99.89 [place] [address] [id number] [address] [place] [address] Mar, Pharyngitis due to other org anism J02.8 [facility] [address] [id number] [address] [place] [id number] Feb, Neuroforaminal stenosis of s pine M99.89 [facility] [address] [id number] [address] [place] [id number] 08 Feb, 2017 UTI (urinary tract infection ) N39.0 [facility] [address] [id number] [address] [place] [phone] 07 Feb, 2017 Recent urinary tract infecti on Z87.440 ; Neuroforaminal stenosis of spine M99.89 ; Neck pain M54.2 ; Chronic pain due to trauma G89.21 and Recurrent UTI N39.0 [facility] [address] [id number] [address] [place] [id number] 03 Feb, 2017 [facility] [address] [id number] [address] [place] [id number] Jan, Neuroforaminal stenosis of s pine M99.89 [facility] [address] [id number] [address] [place] [id number] 28 Dec, 2016 Neuroforaminal stenosis of s pine M99.89 [facility] [address] [id number] [address] [place] [id number] 18 Dec, 2016 Acute seasonal allergic rhin itis due to pollen J30.1 [facility] [address] [id number] [address] [place] [phone] 08 Dec, 2016 [facility] [address] [id number] [address] [place] [phone] 08 Dec, 2016 Acute seasonal allergic rhin itis, unspecified trigger J30.2 ; Allergic conjunctivitis of both eyes H10.13 and Dysfunction of both eustachian tubes H69.83 [facility] [address] [id number] [address] [place] [phone] 07 Dec, 2016 [place] [address] [id number] [address] [place] [phone] Dec, Nevus D22.9 [place] [address] [facility] [id number] [address] [place] [phone] Nov, Chronic pain due to trauma G 89.21 and Neuroforaminal stenosis of spine M99.89 [place] [address] [id number] [address] [place] [address] Nov, Neuroforaminal stenosis of s pine M99.89 ; Essential hypertension I10 ; Mixed hyperlipidemia E78.2 ; Hypokalemia E87.6 ; Neck pain M54.2 and Nevus D22.9 [place] [address] [id number] [address] [place] [phone] Oct, Neuroforaminal stenosis of s pine M99.89 [facility] [address] [id number] [address] [place] [phone] Sep, Neuroforaminal stenosis of s pine M99.89 [place] [address] [id number] [address] [place] [address] Sep, [place] [address] [id number] [address] [place] [phone] August, [facility] [address] [facility] [id number] [address] [place] [phone] August, Neck pain M54.2 and Neurofor aminal stenosis of spine M99.89 [facility] [address] [id number] [address] [place] [phone] August, Routine gynecological examin ation Z01.419 and Screening breast examination Z12.39 [facility] [address] [id number] [address] [place] [phone] Jul, [facility] [address] [id number] [address] [place] [phone] Jul, [facility] [address] [id number] [address] [place] [id number] Jul, Neuroforaminal stenosis of s pine M99.89 [facility] [address] [id number] [address] [place] [id number] Jul, [facility] [address] [id number] [address] [place] [address] Jul, Neuroforaminal stenosis of l umbar 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 [facility] [address] [id number] [address] [place] [phone] Jul, [facility] [address] [id number] [address] [place] [phone] Jul, [facility] [address] [id number] [address] [place] [address] Jun, Neuroforaminal stenosis of s pine M99.89 [facility] [address] [id number] [address] [place] [id number] Jun, Uterine leiomyoma, unspecifi ed location D25.9 and Allergic reaction caused by a drug, initial encounter T78.40XA [facility] [address] [id number] [address] [place] [phone] Jun, [facility] [address] [id number] [address] [place] [address] May, UTI symptoms R39.9 and Pain of right sacroiliac joint M53.3 [place] [address] [id number] [address] [place] [address] May, Neuroforaminal stenosis of s jose M99.89 [place] [address] [id number] [address] [place] [phone] May, [place] [address] [facility] [id number] [address] [place] [address] May, Acute mucoid otitis media of left ear H65.112 and Acute non- recurrent maxillary sinusitis J01.00 [place] [address] [facility] [id number] [address] [place] [phone] May, Acute bacterial conjunctivit is of both eyes H10.33 ; Left arm pain M79.602 and Hypokalemia E87.6 [place] [address] [facility] [id number] [address] [place] [phone] Apr, [place] [address] [id number] [address] [place] [address] Apr, Neuroforaminal stenosis of s pine M99.89 ; Neck pain M54.2 ; Chronic pain due to trauma G89.21 ; Mixed hyperlipidemia E78.2 ; Essential hypertension I10 and Hypokalemia E87.6 [place] [address] [facility] [id number] [address] [place] [phone] Mar, Oral candidiasis B37.0 ; Nathaniel roforaminal stenosis of spine M99.89 ; Neck pain M54.2 and Chronic pain due to trauma G89.21 [place] [address] [facility] [id number] [address] [place] [phone] Feb, [place] [address] [facility] [id number] [address] [place] [phone] Feb, [place] [address] [facility] [id number] [address] [place] [id number] Feb, UTI (urinary tract infection ) N39.0 [facility] [address] [id number] [address] [place] [id number] 09 Feb, 2016 Dysuria R30.0 [facility] [address] [id number] [address] [place] [id number] 08 Feb, 2016 Dysuria R30.0 [facility] [address] [id number] [address] [place] [id number] Feb, Neuroforaminal stenosis of s pine M99.89 ; Neck pain M54.2 ; Essential hypertension I10 ; Chronic pain due to trauma G89.21 ; Dysuria R30.0 ; Abnormal MRI, shoulder R93.8 and Acute cystitis without hematuria N30.00 [facility] [address] [id number] [address] [place] [phone] Jan, [facility] [address] [id number] [address] [place] [phone] Jan, [facility] [address] [id number] [address] [place] [phone] Jan, [facility] [address] [id number] [address] [place] [phone] Jan, Abnormal MRI R93.8 [facility] [address] [id number] [address] [place] [phone] 29 Dec, 2015 [facility] [address] [id number] [address] [place] [id number] 15 Dec, 2015 Acute pain of left shoulder M25.512 [facility] [address] [id number] [address] [place] [phone] 09 Dec, 2015 [facility] [address] [id number] [address] [place] [phone] 08 Dec, 2015 [facility] [address] [id number] [address] [place] [id number] 07 Dec, 2015 Acute pain of left shoulder M25.512 [facility] [address] [id number] [address] [place] [phone] Nov, [facility] [address] [id number] [address] [place] [address] Nov, Neuroforaminal stenosis of s pine M99.89 ; Neck pain M54.2 ; Abnormal mammogram R92.8 ; Essential hypertension I10 and Chronic pain due to trauma G89.21 [facility] [address] [id number] [address] [place] [phone] Nov, [facility] [address] [id number] [address] [place] [phone] Oct, Acute stress disorder F43.0 [facility] [address] [id number] [address] [place] [phone] Oct, [facility] [address] [id number] [address] [place] [phone] Oct, [facility] [address] [id number] [address] [place] [phone] Oct, [facility] [address] [id number] [address] [place] [phone] Sep, [facility] [address] [id number] [address] [place] [phone] August, [facility] [address] [id number] [address] [place] [phone] Jul, Neuroforaminal stenosis of s pine M99.89 ; Neck pain M54.2 ; Abnormal mammogram R92.8 and Essential hypertension I10 [facility] [address] [id number] [address] [place] [phone] Jul, [facility] [address] [id number] [address] [place] [phone] Jul, [facility] [address] [id number] [address] [place] [phone] Jul, Abnormal mammogram R92.8 [facility] [address] [id number] [address] [place] [phone] 08 Jul, 2015 [facility] [address] [facility] [id number] [address] [place] [phone] Jul, UTI (urinary tract infection ) N39.0 [facility] [address] [facility] [id number] [address] [place] [phone] Jul, Dysuria R30.0 [facility] [address] [facility] [id number] [address] [place] [id number] Jun, [facility] [address] [facility] [id number] [address] [place] [phone] Jun, [facility] [address] [place] [id number] [address] [place] [phone] Jun, Hypokalemia E87.6 and Hematu martina R31.9 [place] [address] [place] [id number] [address] [place] [phone] Jun, Hypokalemia E87.6 [facility] [address] [facility] [id number] [address] [place] [id number] Jun, [facility] [address] [place] [id number] [address] [place] [id number] Jun, Hypokalemia E87.6 [facility] [address] [place] [id number] [address] [place] [id number] Jun, Hypokalemia E87.6 [facility] [address] [place] [id number] [address] [place] [id number] 15 Jun, 2015 Neuroforaminal stenosis of s pine M99.89 ; Hypokalemia E87.6 ; Neck pain M54.2 ; Essential hypertension I10 ; Mixed hyperlipidemia E78.2 and Screening breast examination Z12.39 [place] [address] [facility] [id number] [address] [place] [id number] 08 Jun, 2015 Dysuria R30.0 ; UTI (urinary tract infection) N39.0 and Hematuria R31.9 [place] [address] [facility] [id number] [address] [place] [phone] May, [facility] [address] [place] [id number] [place] [phone] 18 May, 2015 High risk sexual behavior Z7 2.51 ; Hypokalemia E87.6 ; Neuroforaminal stenosis of spine M99.89 ; Neck pain M54.2 ; Essential hypertension I10 ; Mixed hyperlipidemia E78.2 ; STD exposure Z20.2 and Concern about STD in female without diagnosis Z71.1 [facility] [address] [facility] [id number] [address] [place] [id number] 16 May, 2015 Neuroforaminal stenosis of s pine M99.89 ; Neck pain M54.2 ; Hypokalemia E87.6 ; Essential hypertension I10 and Mixed hyperlipidemia E78.2 [facility] [address] [place] [id number] [address] [place] [address] May, [facility] [address] [facility] [id number] [address] [place] [id number] 08 May, 2015 High risk sexual behavior Z7 2.51 ; STD exposure Z20.2 and Concern about STD in female without diagnosis Z71.1 [facility] [address] [facility] [id number] [address] [place] [phone] May, [facility] [address] [facility] [id number] [address] [place] [id number] Apr, Neuroforaminal stenosis of s pine M99.89 ; Mixed hyperlipidemia E78.2 ; Essential hypertension I10 and Hypokalemia E87.6 [facility] [address] [facility] [id number] [address] [place] [id number] Mar, [facility] [address] [facility] [id number] [address] [place] [id number] Mar, Hypokalemia E87.6 [facility] [address] [facility] [id number] [address] [place] [address] Mar, Neuroforaminal stenosis of s pine M99.89 ; Mixed hyperlipidemia E78.2 ; Neck pain M54.2 ; Essential hypertension I10 ; Abnormal fasting glucose R73.09 ; Hypokalemia E87.6 and Constipation K59.00 [facility] [address] [facility] [id number] [address] [place] [address] Feb, Neuroforaminal stenosis of s pine M99.89 ; Mixed hyperlipidemia E78.2 ; Neck pain M54.2 ; Essential hypertension I10 ; Abnormal fasting glucose R73.09 ; Hypokalemia E87.6 and Constipation K59.00 [facility] [address] [facility] [id number] [address] [place] [phone] Feb, Elevated fasting blood sugar R73.01 [place] [address] [facility] [id number] [address] [place] [address] Feb, Elevated fasting blood sugar R73.01 [place] [address] [facility] [id number] [address] [place] [address] Feb, Hair loss L65.9 [place] [address] [facility] [id number] [address] [place] [id number] Feb, Sinusitis J32.9 ; Essential hypertension I10 and Hair loss L65.9 [facility] [address] [facility] [id number] [address] [place] [address] Jan, [facility] [address] [facility] [id number] [address] [place] [phone] Jan, Essential hypertension I10 ; Neuroforaminal stenosis of spine M99.89 ; Neck pain M54.2 ; Mixed hyperlipidemia E78.2 and Anxiety F41.9 [facility] [address] [facility] [id number] [address] [place] [address] Jan, [facility] [address] [facility] [id number] [address] [place] [id number] Jan, Mixed hyperlipidemia E78.2 ; Essential (primary) hypertension I10 ; Strain of muscle, fascia and tendon at neck level, subsequent encounter S16.1XXD and Tension-type headache, unspecified, not intractable G44.209 [facility] [address] [id number] [address] [place] [address] Dec, Lumbar back pain 724.2 and N euroforaminal stenosis of spine 724.00 [facility] [address] [id number] [address] [place] [id number] Nov, [facility] [address] [id number] [address] [place] [address] Nov, Lumbar back pain 724.2 and N euroforaminal stenosis of spine 724.00 [place] [address] [facility] [id number] [address] [place] [id number] Nov, Edema 782.3 ; Lumbar back pa in 724.2 ; Essential hypertension, benign 401.1 ; Hyperlipemia 272.4 ; Neuroforaminal stenosis of spine 724.00 and Post-concussion headache 339.20 [facility] [address] [id number] [address] [place] [phone] Nov, [facility] [address] [facility] [id number] [address] [place] [phone] Nov, [facility] [address] [facility] [id number] [address] [place] [id number] Oct, Essential hypertension, sheridan gn 401.1 [facility] [address] [facility] [id number] [address] [place] [address] Oct, Edema 782.3 ; Lumbar back pa in 724.2 ; Essential hypertension, benign 401.1 ; Hyperlipemia 272.4 ; Neuroforaminal stenosis of spine 724.00 and Post-concussion headache 339.20 [facility] [address] [facility] [id number] [address] [place] [phone] Oct, [facility] [address] [facility] [id number] [address] [place] [address] Oct, Edema 782.3 [facility] [address] [id number] [address] [place] [id number] Oct, Lumbar back pain 724.2 [facility] [address] [id number] [address] [place] [phone] Oct, Cervicalgia 723.1 ; Lumbar b ack pain 724.2 and High risk medication use V58.69 [facility] [address] [id number] [address] [place] [phone] Sep, [facility] [address] [id number] [address] [place] [address] Sep, Lumbar strain 847.2 [facility] [address] [facility] [id number] [address] [place] [address] August, Edema 782.3 and Eustachian t ube dysfunction 381.81 [facility] [address] [facility] [id number] [address] [place] [id number] August, [facility] [address] [id number] [address] [place] [phone] August, Eustachian tube dysfunction 381.81 [facility] [address] [id number] [address] [place] [phone] Jul, Otalgia 388.70 and Otitis me jonathon 382.9 [facility] [address] [id number] [address] [place] [id number] Jul, [facility] [address] [id number] [address] [place] [id number] Jul, [facility] [address] [id number] [address] [place] [phone] Jul, [facility] [address] [facility] [id number] [address] [place] [phone] Jul, [facility] [address] [facility] [id number] [address] [place] [phone] Jul, [facility] [address] [id number] [address] [place] [address], [place] [address] Jun, [facility] [address] [id number] [address] [place] [address], [place] [address] 27 Jun, 2014 [facility] [address] [id number] [address] [place] [address], [place] [address] Jun, [facility] [address] [id number] [address] [place] [address], [place] [address] May, 2014 [facility] [address] [id number] [address] [place] [address], [place] [address] May, 2014 [facility] [address] [id number] [address] [place] [address], [place] [address] May, 2014 [facility] [address] [id number] [address] [place] [address], [place] [address] May, 2014 [facility] [address] [id number] [address] [place] [address], [place] [address] May, 2014 [facility] [address] [id number] [address] [place] [address], [place] [address] May, [facility] [address] [id number] [address] [place] [address], [place] [address] May, [facility] [address] [id number] [address] [place] [address], [place] [address] May, [facility] [address] [id number] [address] [place] [address], [place] [address] May, [facility] [address] [id number] [address] [place] [address], [place] [address] May, [facility] [address] [id number] [address] [place] [address], [place] [address] Apr, [facility] [address] [id number] [address] [place] [address], [place] [address] Apr, [facility] [address] [id number] [address] [place] [id number] Apr, [facility] [address] [id number] [address] [place] [address], [place] [address] Apr, [facility] [address] [id number] [address] [place] [address], [place] [address] Apr, [facility] [address] [id number] [address] [place] [address], [place] [address] Apr, [facility] [address] [id number] [address] [place] [address], [place] [address] Apr, [facility] [address] [id number] [address] [place] [address], [place] [address] Apr, [facility] [address] [id number] [address] [place] [address], [place] [address] Apr, [facility] [address] [id number] [address] [place] [address], [place] [address] Apr, [facility] [address] [id number] [address] [place] [address], [place] [address] Apr, [facility] [address] [id number] [address] [place] [address], [place] [address] Apr, [facility] [address] [id number] [address] [place] [address], [place] [address] Apr, [facility] [address] [id number] [address] [place] [address], [place] [address] Apr, [facility] [address] [id number] [address] [place] [address], [place] [address] Apr, [facility] [address] [id number] [address] [place] [address], [place] [address] Mar, [facility] [address] [id number] [address] [place] [address], [place] [address] Mar, [facility] [address] [id number] [address] [place] [address], [place] [address] Mar, [facility] [address] [id number] [address] [place] [address], [place] [address] Mar, [facility] [address] [id number] [address] [place] [address], [place] [address] Feb, [facility] [address] [id number] [address] [place] [address], [place] [address] Feb, [facility] [address] [id number] [address] [place] [address], [place] [address] Feb, [facility] [address] [id number] [address] [place] [address], [place] [address] Feb, [facility] [address] [id number] [address] [place] [address], [place] [address] Jan, [facility] [address] [id number] [address] [place] [address], [place] [address] Jan, [facility] [address] [id number] [address] [place] [address], [place] [address] Jan, [facility] [address] [id number] [address] [place] [address], [place] [address] Jan, [facility] [address] [id number] [address] [place] [address], [place] [address] Jan, [facility] [address] [id number] [address] [place] [address], [place] [address] Jan, [facility] [address] [id number] [address] [place] [address], [place] [address] Jan, [facility] [address] [id number] [address] [place] [address], [place] [address] Jan, [facility] [address] [id number] [address] [place] [address], [place] [address] Dec, [facility] [address] [id number] [address] [place] [address], [place] [address] Dec, [facility] [address] [id number] [address] [place] [address], [place] [address] Dec, [facility] [address] [id number] [address] [place] [address], [place] [address] Dec, 2013 [facility] [address] [id number] [address] [place] [address], [place] [address] Oct, 2013 [facility] [address] [id number] [address] [place] [address], [place] [address] Oct, 2013 [facility] [address] [id number] [address] [place] [address], [place] [address] Oct, 2013 [facility] [address] [id number] [address] [place] [address], [place] [address] Oct, 2013 [facility] [address] [id number] [address] [place] [address], [place] [address] Oct, 2013 [facility] [address] [id number] [address] [place] [address], [place] [address] Oct, 2013 [facility] [address] [id number] [address] [place] [address], [place] [address] Oct, 2013 [facility] [address] [id number] [address] [place] [address], [place] [address] Oct, [facility] [address] [id number] [address] [place] [address], [place] [address] Sep, [facility] [address] [id number] [address] [place] [address], [place] [address] Sep, [facility] [address] [id number] [address] [place] [address], [place] [address] Sep, [facility] [address] [id number] [address] [place] [address], [place] [address] Sep, [facility] [address] [id number] [address] [place] [address], [place] [address] Sep, [facility] [address] [id number] [address] [place] [address], [place] [address] Sep, [facility] [address] [id number] [address] [place] [address], [place] [address] Sep, [facility] [address] [id number] [address] [place] [address], [place] [address] Sep, [facility] [address] [id number] [address] [place] [address], [place] [address] Sep, [facility] [address] [id number] [address] [place] [address], [place] [address] Sep, [facility] [address] [id number] [address] [place] [address], [place] [address] August, [facility] [address] [id number] [address] [place] [address], [place] [address] August, [facility] [address] [id number] [address] [place] [address], [place] [address] August, [facility] [address] [id number] [address] [place] [address], [place] [address] August, [facility] [address] [id number] [address] [place] [address], [place] [address] August, [facility] [address] [id number] [address] [place] [address], [place] [address] August, [facility] [address] [id number] [address] [place] [address], [place] [address] August, [facility] [address] [id number] [address] [place] [address], [place] [address] August, [facility] [address] [id number] [address] [place] [address], [place] [address] August, [facility] [address] [id number] [address] [place] [address], [place] [address] August, [facility] [address] [id number] [address] [place] [address], [place] [address] August, [facility] [address] [id number] [address] [place] [address], [place] [address] August, [facility] [address] [id number] [address] [place] [address], [place] [address] Jul, [facility] [address] [id number] [facility] [place] [address] Jul, [facility] [address] [id number] [address] [place] [address], [place] [address] Jul, [facility] [address] [id number] [address] [place] [address], [place] [address] Jul, [facility] [address] [id number] [address] [place] [address], [place] [address] Jul, [facility] [address] [id number] [address] [place] [address], [place] [address] Jul, [facility] [address] [id number] [address] [place] [address], [place] [address] Jun, [facility] [address] [id number] [address] [place] [address], [place] [address] Jun, [facility] [address] [id number] [address] [place] [address], [place] [address] May, [facility] [address] [id number] [address] [place] [address], [place] [address] May, [facility] [address] [id number] [address] [place] [address], [place] [address] Apr, [facility] [address] [id number] [address] [place] [address], [place] [address] Apr, [facility] [address] [id number] [address] [place] [address], [place] [address] Apr, [facility] [address] [id number] [address] [place] [address], [place] [address] Apr, [facility] [address] [id number] [address] [place] [address], [place] [address] Apr, [facility] [address] [id number] [address] [place] [address] [address] Apr, [facility] [address] [id number] [address] [place] [address], [place] [address] Apr, [facility] [address] [id number] [address] [place] [address], [place] [address] Apr, [facility] [address] [id number] [address] [place] [address], [place] [address] Apr, [facility] [address] [id number] [address] [place] [address], [place] [address] Apr, [facility] [address] [id number] [address] [place] [address], [place] [address] Apr, [facility] [address] [id number] [address] [place] [address], [place] [address] Apr, [facility] [address] [id number] [address] [place] [address], [place] [address] Apr, [facility] [address] [id number] [address] [place] [address], [place] [address] Mar, [facility] [address] [id number] [address] [place] [address], [place] [address] Mar, [facility] [address] [id number] [address] [place] [address], [place] [address] Mar, [facility] [address] [id number] [address] [place] [address], [place] [address] Mar, [facility] [address] [id number] [address] [place] [address] Feb, [facility] [address] [id number] [address] [place] [address], [place] [address] Feb, [facility] [address] [id number] [address] [place] [address], [place] [address] Feb, [facility] [address] [id number] [address] [place] [address], [place] [address] Feb, [facility] [address] [id number] [address] [place] [address], [place] [address] 14 Jan, 2013 [facility] [address] [id number] [address] [place] [address], [place] [address] 14 Jan, 2013 [facility] [address] [id number] [address] [place] [address], [place] [address] 11 Jan, 2013 [facility] [address] [id number] [address] [place] [address], [place] [address] 11 Jan, 2013 [facility] [address] [id number] [address] [place] [address], [place] [address] 10 Jan, 2012 [facility] [address] [id number] [address] [place] [address], [place] [address] 10 Jan, 2013 [facility] [address] [id number] [address] [place] [address], [place] [address] 09 Jan, 2013 [facility] [address] [id number] [address] [place] [address], [place] [address] 09 Jan, 2013 [facility] [address] [id number] [address] [place] [address], [place] [address] Jan, [facility] [address] [id number] [address] [place] [address], [place] [address] 26 Dec, 2012 [facility] [address] [id number] [address] [place] [address], [place] [address] 16 Dec, 2012 [facility] [address] [id number] [address] [place] [address], [place] [address] 16 Dec, 2012 [facility] [address] [id number] [address] [place] [address], [place] [address] 13 Dec, 2012 [facility] [address] [id number] [address] [place] [address], [place] [address] 17 Nov, 2012 [facility] [address] [id number] [address] [place] [address], [place] [address] 17 Nov, 2012 [facility] [address] [id number] [address] [place] [address], [place] [address] Nov, [facility] [address] [id number] [address] [place] [address], [place] [address] Nov, [facility] [address] [id number] [address] [place] [address], [place] [address] Oct, [facility] [address] [id number] [address] [place] [address], [place] [address] Sep, [facility] [address] [id number] [address] [place] [address], [place] [address] August, [facility] [address] [id number] [address] [place] [address], [place] [address] August, [facility] [address] [id number] [address] [place] [address], [place] [address] August, [facility] [address] [id number] [address] [place] [address], [place] [address] August, [facility] [address] [id number] [address] [place] [address], [place] [address] August, [facility] [address] [id number] [address] [place] [address], [place] [address] August, [facility] [address] [id number] [address] [place] [address], [place] [address] August, [facility] [address] [id number] [address] [place] [address], [place] [address] August, [facility] [address] [id number] [address] [place] [address], [place] [address] August, [facility] [address] [id number] [address] [place] [address], [place] [address] August, [facility] [address] [id number] [address] [place] [address], [place] [address] August, [facility] [address] [id number] [address] [place] [address], [place] [address] August, [facility] [address] [id number] [address] [place] [address], [place] [address] Jul, [facility] [address] [id number] [address] [place] [address], [place] [address] Jul, [facility] [address] [id number] [address] [place] [address], [place] [address] Jul, [facility] [address] [id number] [address] [place] [address], [place] [address] Jul, [facility] [address] [id number] [address] [place] [address], [place] [address] Jul, [facility] [address] [id number] [address] [place] [address], [place] [address] Jul, [facility] [address] [id number] [address] [place] [address], [place] [address] Jul, [facility] [address] [id number] [address] [place] [address], [place] [address] Jul, [facility] [address] [id number] [address] [place] [address], [place] [address] Jul, [facility] [address] [id number] [address] [place] [address], [place] [address] Jul, [facility] [address] [id number] [address] [place] [address], [place] [address] Jul, [facility] [address] [id number] [address] [place] [address], [place] [address] Jun, [facility] [address] [id number] [address] [place] [address], [place] [address] Jun, [facility] [address] [id number] [address] [place] [address], [place] [address] Jun, [facility] [address] [id number] [address] [place] [address], [place] [address] Jun, [facility] [address] [id number] [address] [place] [address], [place] [address] May, [facility] [address] [id number] [address] [place] [address], [place] [address] 14 May, 2012 [facility] [address] [id number] [address] [place] [address], [place] [address] 05 May, 2012 [facility] [address] [id number] [address] [place] [address], [place] [address] 04 May, 2012 [facility] [address] [id number] [address] [place] [address], [place] [address] 04 May, 2012 [facility] [address] [id number] [address] [place] [address], [place] [address] May, [facility] [address] [id number] [address] [place] [address], [place] [address] Apr, [facility] [address] [id number] [address] [place] [address], [place] [address] Apr, [facility] [address] [id number] [address] [place] [address], [place] [address] 30 Apr, 2012 [facility] [address] [id number] [address] [place] [address], [place] [address] Apr, [facility] [address] [id number] [address] [place] [address], [place] [address] 15 Mar, 2012 [facility] [address] [id number] [address] [place] [address], [place] [address] 14 Mar, 2012 [facility] [address] [id number] [address] [place] [address], [place] [address] 14 Mar, 2012 [facility] [address] [id number] [address] [place] [address], [place] [address] 14 Mar, 2012 [facility] [address] [id number] [address] [place] [address], [place] [address] 14 Mar, 2012 [facility] [address] [id number] [address] [place] [address], [place] [address] 06 Mar, 2012 [facility] [address] [id number] [address] [place] [address], [place] [address] Mar, [facility] [address] [id number] [address] [place] [address], [place] [address] Feb, [facility] [address] [id number] [address] [place] [address], [place] [address] Feb, [facility] [address] [id number] [address] [place] [address], [place] [address] Feb, [facility] [address] [id number] [address] [place] [address], [place] [address] Feb, [facility] [address] [id number] [address] [place] [address], [place] [address] Jan, [facility] [address] [id number] [address] [place] [address], [place] [address] Jan, [facility] [address] [id number] [address] [place] [address], [place] [address] Jan, [facility] [address] [id number] [address] [place] [address], [place] [address] Jan, [facility] [address] [id number] [address] [place] [address], [place] [address] Jan, [facility] [address] [id number] [address] [place] [address], [place] [address] Jan, [facility] [address] [id number] [address] [place] [address], [place] [address] Dec, [facility] [address] [id number] [address] [place] [phone] Dec, [facility] [address] [id number] [address] [place] [address], [place] [address] Nov, [facility] [address] [id number] [address] [place] [address], [place] [address] Sep, [facility] [address] [id number] [address] [place] [address], [place] [address] August, [facility] [address] [id number] [address] [place] [address], [place] [address] August, [facility] [address] [id number] [address] [place] [address], [place] [address] August, [facility] [address] [id number] [address] [place] [address], [place] [address] August, [facility] [address] [id number] [address] [place] [address], [place] [address] August, [facility] [address] [id number] [address] [place] [address], [place] [address] Jun, [facility] [address] [id number] [address] [place] [address], [place] [address] Jun, [facility] [address] [id number] [address] [place] [address], [place] [address] Apr, [facility] [address] [id number] [address] [place] [address], [place] [address] Apr, [facility] [address] [id number] [address] [place] [address], [place] [address] Mar, [facility] [address] [id number] [address] [place] [address], [place] [address] 22 Feb, 2011 [facility] [address] [id number] [address] [place] [address], [place] [address] 14 Feb, 2011 [facility] [address] [id number] [address] [place] [address], [place] [address] 14 Feb, 2011 [facility] [address] [id number] [address] [place] [address], [place] [address] 17 Jan, 2011 [facility] [address] [id number] [address] [place] [address], [place] [address] 15 Jan, 2011 [facility] [address] [id number] [address] [place] [address], [place] [address] 15 Jan, 2011 [facility] [address] [id number] [address] [place] [address], [place] [address] 14 Jan, 2011 [facility] [address] [facility] [id number] [address] [place] [phone] 15 May, 2010 [facility] [address] [facility] [id number] [address] [place] [phone] Mar, [facility] [address] [facility] [id number] [address] [place] [id number] Oct, [facility] [address] [facility] [id number] [address] [place] [phone] Sep, [facility] [address] [facility] [id number] [address] [place] [phone] Mar, [facility] [address] [facility] [id number] [address] [place] [phone] Jan, [facility] [address] [facility] [id number] [address] [place] [phone] Jan, [facility] [address] [facility] [id number] [address] [place] [phone] May, IMMUNIZATIONS No Known Immunizations SOCIAL HISTORY Never Assessed REASON FOR VISIT EMR-[facility] [place] PLAN OF CARE VITAL [...]
--- OUTSIDE RECORDS SUMMARY | 2019-11-23 06:04 | XMS REPORT ---
Author Author Liana Coe Doctor Organization [facility] Address Unknown Phone Unavailable Care Team Providers Care Airplane Technician Name Role Phone Migration, Doctor Unavailable Unavailable PROBLEMS Type Condition ICD9-CM Code UKN61-YD Code Onset Dates Condition S tatus SNOMED Code Problem Hematuria, unspecified type R31.9 Ac tive 22480076 Problem Abnormal renal ultrasound R93.429 Acti ve [id number] Problem Anxiety F41.9 Active 31286137 Problem Hypokalemia E87.6 Active 09441046 Problem Abnormal glucose R73.09 Active 102 423721 Problem Chronic pain due to trauma G89.21 Act juanis 842214841 Problem Neuroforaminal stenosis of spine M99.89 Active 131739298550 Problem Neck pain M54.2 Active 00406281 Problem Essential hypertension I10 Active 22124893 Problem Mixed hyperlipidemia E78.2 Active 17344712 ALLERGIES No Information ENCOUNTERS Encounter Location Date Diagnosis [place] [address] [facility] [id number] [address] [place] [address] May, Neuroforaminal stenosis of s pine M99.89 [place] [address] [facility] [id number] [address] [place] [address] May, [facility] [address] [facility] [id number] [address] [place] [address] May, Congestion of nasal sinus R0 9.81 [facility] [address] [facility] [id number] [address] [place] [address] May, [facility] [address] [facility] [id number] [address] [place] [address] Apr, Neuroforaminal stenosis of s pine M99.89 [facility] [address] [facility] [id number] [address] [place] [address] Apr, Neuroforaminal stenosis of s pine M99.89 and Chronic pain due to trauma G89.21 [facility] [address] [id number] [address] [place] [address] Mar, UTI (urinary tract infection ) N39.0 [facility] [address] [id number] [address] [place] [address] Mar, Vertigo R42 [facility] [address] [id number] [address] [place] [address] Mar, Neuroforaminal stenosis of s jose M99.89 [facility] [address] [id number] [address] [place] [address] Feb, Extensor tendon disruption M 67.89 [facility] [address] [id number] [address] [place] [address] Feb, Neuroforaminal stenosis of ayla garcia M99.89 and High risk medication use Z79.899 [facility] [address] [id number] [address] [place] [address] Jan, Hypokalemia E87.6 [facility] [address] [id number] [address] [place] [address] Jan, Flank pain R10.9 and Acute r ight-sided low back pain without sciatica M54.5 [facility] [address] [id number] [address] [place] [address] Jan, Hypokalemia E87.6 [facility] [address] [id number] [address] [place] [address] Jan, [facility] [address] [id number] [address] [place] [address] Jan, URI, acute J06.9 [facility] [address] [id number] [address] [place] [address] Jan, Neuroforaminal stenosis of ayla garcia M99.89 [facility] [address] [id number] [address] [place] [address] 13 Dec, 2017 Lateral epicondylitis, right elbow M77.11 [place] [address] [address] 11 Dec, 2017 Allergic rhinitis due to monica rosalina, unspecified seasonality J30.1 and Allergic conjunctivitis of both eyes H10.13 [place] [address] [address] 10 Dec, 2017 Neuroforaminal stenosis of s pine M99.89 [place] [address] [address] 06 Dec, 2017 Mixed hyperlipidemia E78.2 [place] [address] [address] 05 Dec, 2017 Abnormal glucose R73.09 ; Ab normal renal ultrasound R93.429 ; Dysuria R30.0 ; Cystitis without hematuria N30.90 ; Hypokalemia E87.6 ; Mixed hyperlipidemia E78.2 and Hematuria, unspecified type R31.9 [place] [address] [address] Nov, Hypokalemia E87.6 ; Mixed hy perlipidemia E78.2 and Hematuria, unspecified type R31.9 [place] [address] [address] Nov, [place] [address] [address] Nov, Hypokalemia E87.6 [place] [address] [address] Nov, [place] [address] [address] Nov, Abnormal renal ultrasound R9 3.429 [place] [address] [address] Nov, Abnormal renal ultrasound R9 3.429 [place] [address] [id number] [address] [place] [address] 09 Nov, 2017 Hematuria, unspecified type R31.9 and Neuroforaminal stenosis of spine M99.89 [facility] [address] [id number] [address] [place] [address] Nov, Dysuria R30.0 [place] [address] [id number] [address] [place] [address] Oct, Lateral epicondylitis, right elbow M77.11 [place] [address] [id number] [address] [place] [address] Oct, Neuroforaminal stenosis of s jose M99.89 ; Visit for TB skin test Z11.1 and Essential hypertension I10 [place] [address] [id number] [address] [place] [address] Oct, [place] [address] [id number] [address] [place] [address] Oct, Neuroforaminal stenosis of s pine M99.89 [place] [address] [id number] [address] [place] [address] Oct, Visit for TB skin test Z11.1 [place] [address] [id number] [address] [place] [address] 05 Oct, 2017 Cystitis without hematuria N 30.90 [place] [address] [id number] [address] [place] [address] Sep, Screening breast examination Z12.39 [place] [address] [id number] [address] [place] [address] Sep, Dysuria R30.0 and Cystitis w ithout hematuria N30.90 [place] [address] [id number] [address] [place] [address] 14 Sep, 2017 Essential hypertension I10 a nd Neuroforaminal stenosis of spine M99.89 [place] [address] [id number] [address] [place] [address] Sep, Abnormal glucose R73.09 [place] [address] [id number] [address] [place] [address] August, Lateral epicondylitis, right elbow M77.11 [place] [address] [id number] [address] [place] [address] August, Screen for STD (sexually tra nsmitted disease) Z11.3 [place] [address] [id number] [address] [place] [address] August, Neuroforaminal stenosis of s jose M99.89 ; Mixed hyperlipidemia E78.2 ; Elevated fasting glucose R73.01 ; Screening mammogram, encounter for Z12.31 and Encounter for well woman exam without gynecological exam Z00.00 [place] [address] [id number] [address] [place] [address] August, Neuroforaminal stenosis of s pine M99.89 [place] [address] [id number] [address] [place] [address] August, Essential hypertension I10 ; Hypokalemia E87.6 and Mixed hyperlipidemia E78.2 [place] [address] [id number] [address] [place] [address] Jul, [place] [address] [id number] [address] [place] [address] Jul, Neuroforaminal stenosis of s pine M99.89 [place] [address] [id number] [address] [place] [address] Jul, Lateral epicondylitis, right elbow M77.11 [place] [address] [id number] [address] [place] [address] Jul, [place] [address] [id number] [address] [place] [address] Jun, High ankle sprain of right l ower extremity, initial encounter S93.431A [place] [address] [id number] [address] [place] [address] Jun, Essential hypertension I10 [facility] [address] [id number] [address] [place] [address] Jun, [facility] [address] [id number] [address] [place] [address] Jun, [facility] [address] [id number] [address] [place] [address] Jun, Neuroforaminal stenosis of s pine M99.89 [facility] [address] [id number] [address] [place] [address] Jun, Pain of right upper extremit y M79.601 and Essential hypertension I10 [place] [address] [id number] [address] [place] [address] Jun, [place] [address] [facility] [id number] [address] [place] [address] Jun, Dysuria R30.0 ; Acute cystit is with hematuria N30.01 and Screen for STD (sexually transmitted disease) Z11.3 [place] [address] [id number] [address] [place] [address] May, Chronic pain due to trauma G 89.21 [place] [address] [id number] [address] [place] [address] May, Essential hypertension I10 [facility] [address] [id number] [address] [place] [address] May, Neuroforaminal stenosis of s pine M99.89 [facility] [address] [id number] [address] [place] [address] Apr, Allergic reaction, initial e ncounter T78.40XA [facility] [address] [id number] [address] [place] [address] Apr, Low back pain, unspecified b ack pain laterality, unspecified chronicity, with sciatica presence unspecified M54.5 ; Acute cystitis with hematuria N30.01 ; Neuroforaminal stenosis of spine M99.89 ; Bilateral acute serous otitis media, recurrence not specified H65.03 ; Mixed hyperlipidemia E78.2 ; Essential hypertension I10 ; Immunization counseling Z71.89 and Encounter for immunization Z23 [facility] [address] [id number] [address] [place] [address] 08 Apr, 2017 Neck pain M54.2 [facility] [address] [id number] [address] [place] [address] 26 Mar, 2017 Neuroforaminal stenosis of s pine M99.89 [place] [address] [id number] [address] [place] [address] Mar, Pharyngitis due to other org anism J02.8 [facility] [address] [id number] [address] [place] [address] Feb, Neuroforaminal stenosis of s pine M99.89 [facility] [address] [id number] [address] [place] [address] 08 Feb, 2017 UTI (urinary tract infection ) N39.0 [facility] [address] [id number] [address] [place] [address] 07 Feb, 2017 Recent urinary tract infecti on Z87.440 ; Neuroforaminal stenosis of spine M99.89 ; Neck pain M54.2 ; Chronic pain due to trauma G89.21 and Recurrent UTI N39.0 [facility] [address] [id number] [address] [place] [address] 03 Feb, 2017 [facility] [address] [id number] [address] [place] [address] Jan, Neuroforaminal stenosis of s pine M99.89 [facility] [address] [id number] [address] [place] [address] 28 Dec, 2016 Neuroforaminal stenosis of s pine M99.89 [facility] [address] [id number] [address] [place] [address] 18 Dec, 2016 Acute seasonal allergic rhin itis due to pollen J30.1 [facility] [address] [id number] [address] [place] [address] 08 Dec, 2016 [facility] [address] [id number] [address] [place] [address] 08 Dec, 2016 Acute seasonal allergic rhin itis, unspecified trigger J30.2 ; Allergic conjunctivitis of both eyes H10.13 and Dysfunction of both eustachian tubes H69.83 [facility] [address] [id number] [address] [place] [address] 07 Dec, 2016 [place] [address] [id number] [address] [place] [address] Dec, Nevus D22.9 [place] [address] [facility] [id number] [address] [place] [address] Nov, Chronic pain due to trauma G 89.21 and Neuroforaminal stenosis of spine M99.89 [place] [address] [id number] [address] [place] [address] Nov, Neuroforaminal stenosis of s pine M99.89 ; Essential hypertension I10 ; Mixed hyperlipidemia E78.2 ; Hypokalemia E87.6 ; Neck pain M54.2 and Nevus D22.9 [place] [address] [id number] [address] [place] [address] Oct, Neuroforaminal stenosis of s pine M99.89 [facility] [address] [id number] [address] [place] [address] Sep, Neuroforaminal stenosis of s pine M99.89 [place] [address] [id number] [address] [place] [address] Sep, [place] [address] [id number] [address] [place] [address] August, [facility] [address] [facility] [id number] [address] [place] [address] August, Neck pain M54.2 and Neurofor aminal stenosis of spine M99.89 [facility] [address] [id number] [address] [place] [address] August, Routine gynecological examin ation Z01.419 and Screening breast examination Z12.39 [facility] [address] [id number] [address] [place] [address] Jul, [facility] [address] [id number] [address] [place] [address] Jul, [facility] [address] [id number] [address] [place] [address] Jul, Neuroforaminal stenosis of s pine M99.89 [facility] [address] [id number] [address] [place] [address] Jul, [facility] [address] [id number] [address] [place] [address] Jul, Neuroforaminal stenosis of l umbar 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 [facility] [address] [id number] [address] [place] [address] Jul, [facility] [address] [id number] [address] [place] [address] Jul, [facility] [address] [id number] [address] [place] [address] Jun, Neuroforaminal stenosis of s pine M99.89 [facility] [address] [id number] [address] [place] [address] Jun, Uterine leiomyoma, unspecifi ed location D25.9 and Allergic reaction caused by a drug, initial encounter T78.40XA [facility] [address] [id number] [address] [place] [address] Jun, [facility] [address] [id number] [address] [place] [address] May, UTI symptoms R39.9 and Pain of right sacroiliac joint M53.3 [place] [address] [id number] [address] [place] [address] May, Neuroforaminal stenosis of s jose M99.89 [place] [address] [id number] [address] [place] [address] May, [place] [address] [facility] [id number] [address] [place] [address] May, Acute mucoid otitis media of left ear H65.112 and Acute non- recurrent maxillary sinusitis J01.00 [place] [address] [facility] [id number] [address] [place] [address] May, Acute bacterial conjunctivit is of both eyes H10.33 ; Left arm pain M79.602 and Hypokalemia E87.6 [place] [address] [facility] [id number] [address] [place] [address] Apr, [place] [address] [id number] [address] [place] [address] Apr, Neuroforaminal stenosis of s pine M99.89 ; Neck pain M54.2 ; Chronic pain due to trauma G89.21 ; Mixed hyperlipidemia E78.2 ; Essential hypertension I10 and Hypokalemia E87.6 [place] [address] [facility] [id number] [address] [place] [address] Mar, Oral candidiasis B37.0 ; Nathaniel roforaminal stenosis of spine M99.89 ; Neck pain M54.2 and Chronic pain due to trauma G89.21 [place] [address] [facility] [id number] [address] [place] [address] Feb, [place] [address] [facility] [id number] [address] [place] [address] Feb, [place] [address] [facility] [id number] [address] [place] [address] Feb, UTI (urinary tract infection ) N39.0 [facility] [address] [id number] [address] [place] [address] 09 Feb, 2016 Dysuria R30.0 [facility] [address] [id number] [address] [place] [address] 08 Feb, 2016 Dysuria R30.0 [facility] [address] [id number] [address] [place] [address] Feb, Neuroforaminal stenosis of s pine M99.89 ; Neck pain M54.2 ; Essential hypertension I10 ; Chronic pain due to trauma G89.21 ; Dysuria R30.0 ; Abnormal MRI, shoulder R93.8 and Acute cystitis without hematuria N30.00 [facility] [address] [id number] [address] [place] [address] Jan, [facility] [address] [id number] [address] [place] [address] Jan, [facility] [address] [id number] [address] [place] [address] Jan, [facility] [address] [id number] [address] [place] [address] Jan, Abnormal MRI R93.8 [facility] [address] [id number] [address] [place] [address] 29 Dec, 2015 [facility] [address] [id number] [address] [place] [address] 15 Dec, 2015 Acute pain of left shoulder M25.512 [facility] [address] [id number] [address] [place] [address] 09 Dec, 2015 [facility] [address] [id number] [address] [place] [address] 08 Dec, 2015 [facility] [address] [id number] [address] [place] [address] 07 Dec, 2015 Acute pain of left shoulder M25.512 [facility] [address] [id number] [address] [place] [address] Nov, [facility] [address] [id number] [address] [place] [address] Nov, Neuroforaminal stenosis of s pine M99.89 ; Neck pain M54.2 ; Abnormal mammogram R92.8 ; Essential hypertension I10 and Chronic pain due to trauma G89.21 [facility] [address] [id number] [address] [place] [address] Nov, [facility] [address] [id number] [address] [place] [address] Oct, Acute stress disorder F43.0 [facility] [address] [id number] [address] [place] [address] Oct, [facility] [address] [id number] [address] [place] [address] Oct, [facility] [address] [id number] [address] [place] [address] Oct, [facility] [address] [id number] [address] [place] [address] Sep, [facility] [address] [id number] [address] [place] [address] August, [facility] [address] [id number] [address] [place] [address] Jul, Neuroforaminal stenosis of s pine M99.89 ; Neck pain M54.2 ; Abnormal mammogram R92.8 and Essential hypertension I10 [facility] [address] [id number] [address] [place] [address] Jul, [facility] [address] [id number] [address] [place] [address] Jul, [facility] [address] [id number] [address] [place] [address] Jul, Abnormal mammogram R92.8 [facility] [address] [id number] [address] [place] [address] 08 Jul, 2015 [facility] [address] [facility] [id number] [address] [place] [address] Jul, UTI (urinary tract infection ) N39.0 [facility] [address] [facility] [id number] [address] [place] [address] Jul, Dysuria R30.0 [facility] [address] [facility] [id number] [address] [place] [address] Jun, [facility] [address] [facility] [id number] [address] [place] [address] Jun, [facility] [address] [place] [id number] [address] [place] [address] Jun, Hypokalemia E87.6 and Hematu martina R31.9 [place] [address] [place] [id number] [address] [place] [address] Jun, Hypokalemia E87.6 [facility] [address] [facility] [id number] [address] [place] [address] Jun, [facility] [address] [place] [id number] [address] [place] [address] Jun, Hypokalemia E87.6 [facility] [address] [place] [id number] [address] [place] [address] Jun, Hypokalemia E87.6 [facility] [address] [place] [id number] [address] [place] [address] 15 Jun, 2015 Neuroforaminal stenosis of s pine M99.89 ; Hypokalemia E87.6 ; Neck pain M54.2 ; Essential hypertension I10 ; Mixed hyperlipidemia E78.2 and Screening breast examination Z12.39 [place] [address] [facility] [id number] [address] [place] [address] 08 Jun, 2015 Dysuria R30.0 ; UTI (urinary tract infection) N39.0 and Hematuria R31.9 [place] [address] [facility] [id number] [address] [place] [phone] May, [facility] [address] [place] [id number] [place] [phone] 18 May, 2015 High risk sexual behavior Z7 2.51 ; Hypokalemia E87.6 ; Neuroforaminal stenosis of spine M99.89 ; Neck pain M54.2 ; Essential hypertension I10 ; Mixed hyperlipidemia E78.2 ; STD exposure Z20.2 and Concern about STD in female without diagnosis Z71.1 [facility] [address] [facility] [id number] [address] [place] [phone] 16 May, 2015 Neuroforaminal stenosis of s pine M99.89 ; Neck pain M54.2 ; Hypokalemia E87.6 ; Essential hypertension I10 and Mixed hyperlipidemia E78.2 [facility] [address] [place] [id number] [address] [place] [phone] May, [facility] [address] [facility] [id number] [address] [place] [phone] 08 May, 2015 High risk sexual behavior Z7 2.51 ; STD exposure Z20.2 and Concern about STD in female without diagnosis Z71.1 [facility] [address] [facility] [id number] [address] [place] [phone] May, [facility] [address] [facility] [id number] [address] [place] [phone] Apr, Neuroforaminal stenosis of s pine M99.89 ; Mixed hyperlipidemia E78.2 ; Essential hypertension I10 and Hypokalemia E87.6 [facility] [address] [facility] [id number] [address] [place] [phone] Mar, [facility] [address] [facility] [id number] [address] [place] [phone] Mar, Hypokalemia E87.6 [facility] [address] [facility] [id number] [address] [place] [phone] Mar, Neuroforaminal stenosis of s pine M99.89 ; Mixed hyperlipidemia E78.2 ; Neck pain M54.2 ; Essential hypertension I10 ; Abnormal fasting glucose R73.09 ; Hypokalemia E87.6 and Constipation K59.00 [facility] [address] [facility] [id number] [address] [place] [phone] Feb, Neuroforaminal stenosis of s pine M99.89 ; Mixed hyperlipidemia E78.2 ; Neck pain M54.2 ; Essential hypertension I10 ; Abnormal fasting glucose R73.09 ; Hypokalemia E87.6 and Constipation K59.00 [facility] [address] [facility] [id number] [address] [place] [phone] Feb, Elevated fasting blood sugar R73.01 [place] [address] [facility] [id number] [address] [place] [address] [address] Feb, Elevated fasting blood sugar R73.01 [place] [address] [facility] [id number] [address] [place] [address] Feb, Hair loss L65.9 [place] [address] [facility] [id number] [address] [place] [address] Feb, Sinusitis J32.9 ; Essential hypertension I10 and Hair loss L65.9 [facility] [address] [facility] [id number] [address] [place] [address] Jan, [facility] [address] [facility] [id number] [address] [place] [address] Jan, Essential hypertension I10 ; Neuroforaminal stenosis of spine M99.89 ; Neck pain M54.2 ; Mixed hyperlipidemia E78.2 and Anxiety F41.9 [facility] [address] [facility] [id number] [address] [place] [address] Jan, [facility] [address] [facility] [id number] [address] [place] [address] Jan, Mixed hyperlipidemia E78.2 ; Essential (primary) hypertension I10 ; Strain of muscle, fascia and tendon at neck level, subsequent encounter S16.1XXD and Tension-type headache, unspecified, not intractable G44.209 [facility] [address] [id number] [address] [place] [address] Dec, Lumbar back pain 724.2 and N euroforaminal stenosis of spine 724.00 [facility] [address] [id number] [address] [place] [address] Nov, [facility] [address] [id number] [address] [place] [address] Nov, Lumbar back pain 724.2 and N euroforaminal stenosis of spine 724.00 [place] [address] [facility] [id number] [address] [place] [address] Nov, Edema 782.3 ; Lumbar back pa in 724.2 ; Essential hypertension, benign 401.1 ; Hyperlipemia 272.4 ; Neuroforaminal stenosis of spine 724.00 and Post-concussion headache 339.20 [facility] [address] [id number] [address] [place] [address] Nov, [facility] [address] [facility] [id number] [address] [place] [address] Nov, [facility] [address] [facility] [id number] [address] [place] [address] Oct, Essential hypertension, sheridan gn 401.1 [facility] [address] [facility] [id number] [address] [place] [address] Oct, Edema 782.3 ; Lumbar back pa in 724.2 ; Essential hypertension, benign 401.1 ; Hyperlipemia 272.4 ; Neuroforaminal stenosis of spine 724.00 and Post-concussion headache 339.20 [facility] [address] [facility] [id number] [address] [place] [address] Oct, [facility] [address] [facility] [id number] [address] [place] [address] Oct, Edema 782.3 [facility] [address] [id number] [address] [place] [address] Oct, Lumbar back pain 724.2 [facility] [address] [id number] [address] [place] [address] Oct, Cervicalgia 723.1 ; Lumbar b ack pain 724.2 and High risk medication use V58.69 [facility] [address] [id number] [address] [place] [address] Sep, [facility] [address] [id number] [address] [place] [address] Sep, Lumbar strain 847.2 [facility] [address] [facility] [id number] [address] [place] [address] August, Edema 782.3 and Eustachian t ube dysfunction 381.81 [facility] [address] [facility] [id number] [address] [place] [address] August, [facility] [address] [id number] [address] [place] [address] August, Eustachian tube dysfunction 381.81 [facility] [address] [id number] [address] [place] [address] Jul, Otalgia 388.70 and Otitis me jonathon 382.9 [facility] [address] [id number] [address] [place] [address] Jul, [facility] [address] [id number] [address] [place] [address] Jul, [facility] [address] [id number] [address] [place] [address] Jul, [facility] [address] [facility] [id number] [address] [place] [address] Jul, [facility] [address] [facility] [id number] [address] [place] [address] Jul, [facility] [address] [id number] [address] [place] [address], [place] [address] Jun, [facility] [address] [id number] [address] [place] [address], [place] [address] 27 Jun, 2014 [facility] [address] [id number] [address] [place] [address], [place] [address] Jun, [facility] [address] [id number] [address] [place] [address], [place] [address] May, 2014 [facility] [address] [id number] [address] [place] [address], [place] [address] May, 2014 [facility] [address] [id number] [address] [place] [address], [place] [address] May, 2014 [facility] [address] [id number] [address] [place] [address], [place] [address] May, 2014 [facility] [address] [id number] [address] [place] [address], [place] [address] May, 2014 [facility] [address] [id number] [address] [place] [address], [place] [address] May, [facility] [address] [id number] [address] [place] [address], [place] [address] May, [facility] [address] [id number] [address] [place] [address], [place] [address] May, [facility] [address] [id number] [address] [place] [address], [place] [address] May, [facility] [address] [id number] [address] [place] [address], [place] [address] May, [facility] [address] [id number] [address] [place] [address], [place] [address] Apr, [facility] [address] [id number] [address] [place] [address], [place] [address] Apr, [facility] [address] [id number] [address] [place] [address] Apr, [facility] [address] [id number] [address] [place] [address], [place] [address] Apr, [facility] [address] [id number] [address] [place] [address], [place] [address] Apr, [facility] [address] [id number] [address] [place] [address], [place] [address] Apr, [facility] [address] [id number] [address] [place] [address], [place] [address] Apr, [facility] [address] [id number] [address] [place] [address], [place] [address] Apr, [facility] [address] [id number] [address] [place] [address], [place] [address] Apr, [facility] [address] [id number] [address] [place] [address], [place] [address] Apr, [facility] [address] [id number] [address] [place] [address], [place] [address] Apr, [facility] [address] [id number] [address] [place] [address], [place] [address] Apr, [facility] [address] [id number] [address] [place] [address], [place] [address] Apr, [facility] [address] [id number] [address] [place] [address], [place] [address] Apr, [facility] [address] [id number] [address] [place] [address], [place] [address] Apr, [facility] [address] [id number] [address] [place] [address], [place] [address] Mar, [facility] [address] [id number] [address] [place] [address], [place] [address] Mar, [facility] [address] [id number] [address] [place] [address], [place] [address] Mar, [facility] [address] [id number] [address] [place] [address], [place] [address] Mar, [facility] [address] [id number] [address] [place] [address], [place] [address] Feb, [facility] [address] [id number] [address] [place] [address], [place] [address] Feb, [facility] [address] [id number] [address] [place] [address], [place] [address] Feb, [facility] [address] [id number] [address] [place] [address], [place] [address] Feb, [facility] [address] [id number] [address] [place] [address], [place] [address] Jan, [facility] [address] [id number] [address] [place] [address], [place] [address] Jan, [facility] [address] [id number] [address] [place] [address], [place] [address] Jan, [facility] [address] [id number] [address] [place] [address], [place] [address] Jan, [facility] [address] [id number] [address] [place] [address], [place] [address] Jan, [facility] [address] [id number] [address] [place] [address], [place] [address] Jan, [facility] [address] [id number] [address] [place] [address], [place] [address] Jan, [facility] [address] [id number] [address] [place] [address], [place] [address] Jan, [facility] [address] [id number] [address] [place] [address], [place] [address] Dec, [facility] [address] [id number] [address] [place] [address], [place] [address] Dec, [facility] [address] [id number] [address] [place] [address], [place] [address] Dec, [facility] [address] [id number] [address] [place] [address], [place] [address] Dec, 2013 [facility] [address] [id number] [address] [place] [address], [place] [address] Oct, 2013 [facility] [address] [id number] [address] [place] [address], [place] [address] Oct, 2013 [facility] [address] [id number] [address] [place] [address], [place] [address] Oct, 2013 [facility] [address] [id number] [address] [place] [address], [place] [address] Oct, 2013 [facility] [address] [id number] [address] [place] [address], [place] [address] Oct, 2013 [facility] [address] [id number] [address] [place] [address], [place] [address] Oct, 2013 [facility] [address] [id number] [address] [place] [address], [place] [address] Oct, 2013 [facility] [address] [id number] [address] [place] [address], [place] [address] Oct, [facility] [address] [id number] [address] [place] [address], [place] [address] Sep, [facility] [address] [id number] [address] [place] [address], [place] [address] Sep, [facility] [address] [id number] [address] [place] [address], [place] [address] Sep, [facility] [address] [id number] [address] [place] [address], [place] [address] Sep, [facility] [address] [id number] [address] [place] [address], [place] [address] Sep, [facility] [address] [id number] [address] [place] [address], [place] [address] Sep, [facility] [address] [id number] [address] [place] [address], [place] [address] Sep, [facility] [address] [id number] [address] [place] [address], [place] [address] Sep, [facility] [address] [id number] [address] [place] [address], [place] [address] Sep, [facility] [address] [id number] [address] [place] [address], [place] [address] Sep, [facility] [address] [id number] [address] [place] [address], [place] [address] August, [facility] [address] [id number] [address] [place] [address], [place] [address] August, [facility] [address] [id number] [address] [place] [address], [place] [address] August, [facility] [address] [id number] [address] [place] [address], [place] [address] August, [facility] [address] [id number] [address] [place] [address], [place] [address] August, [facility] [address] [id number] [address] [place] [address], [place] [address] August, [facility] [address] [id number] [address] [place] [address], [place] [address] August, [facility] [address] [id number] [address] [place] [address], [place] [address] August, [facility] [address] [id number] [address] [place] [address], [place] [address] August, [facility] [address] [id number] [address] [place] [address], [place] [address] August, [facility] [address] [id number] [address] [place] [address], [place] [address] August, [facility] [address] [id number] [address] [place] [address], [place] [address] August, [facility] [address] [id number] [address] [place] [address], [place] [address] Jul, [facility] [address] [id number] [facility] [place] [address] Jul, [facility] [address] [id number] [address] [place] [address], [place] [address] Jul, [facility] [address] [id number] [address] [place] [address], [place] [address] Jul, [facility] [address] [id number] [address] [place] [address], [place] [address] Jul, [facility] [address] [id number] [address] [place] [address], [place] [address] Jul, [facility] [address] [id number] [address] [place] [address], [place] [address] Jun, [facility] [address] [id number] [address] [place] [address], [place] [address] Jun, [facility] [address] [id number] [address] [place] [address], [place] [address] May, [facility] [address] [id number] [address] [place] [address], [place] [address] May, [facility] [address] [id number] [address] [place] [address], [place] [address] Apr, [facility] [address] [id number] [address] [place] [address], [place] [address] Apr, [facility] [address] [id number] [address] [place] [address], [place] [address] Apr, [facility] [address] [id number] [address] [place] [address], [place] [address] Apr, [facility] [address] [id number] [address] [place] [address], [place] [address] Apr, [facility] [address] [id number] [address] [place] [address] [address] Apr, [facility] [address] [id number] [address] [place] [address], [place] [address] Apr, [facility] [address] [id number] [address] [place] [address], [place] [address] Apr, [facility] [address] [id number] [address] [place] [address], [place] [address] Apr, [facility] [address] [id number] [address] [place] [address], [place] [address] Apr, [facility] [address] [id number] [address] [place] [address], [place] [address] Apr, [facility] [address] [id number] [address] [place] [address], [place] [address] Apr, [facility] [address] [id number] [address] [place] [address], [place] [address] Apr, [facility] [address] [id number] [address] [place] [address], [place] [address] Mar, [facility] [address] [id number] [address] [place] [address], [place] [address] Mar, [facility] [address] [id number] [address] [place] [address], [place] [address] Mar, [facility] [address] [id number] [address] [place] [address], [place] [address] Mar, [facility] [address] [id number] [address] [place] [address] Feb, [facility] [address] [id number] [address] [place] [address], [place] [address] Feb, [facility] [address] [id number] [address] [place] [address], [place] [address] Feb, [facility] [address] [id number] [address] [place] [address], [place] [address] Feb, [facility] [address] [id number] [address] [place] [address], [place] [address] 14 Jan, 2013 [facility] [address] [id number] [address] [place] [address], [place] [address] 14 Jan, 2013 [facility] [address] [id number] [address] [place] [address], [place] [address] 11 Jan, 2013 [facility] [address] [id number] [address] [place] [address], [place] [address] 11 Jan, 2013 [facility] [address] [id number] [address] [place] [address], [place] [address] 10 Jan, 2012 [facility] [address] [id number] [address] [place] [address], [place] [address] 10 Jan, 2013 [facility] [address] [id number] [address] [place] [address], [place] [address] 09 Jan, 2013 [facility] [address] [id number] [address] [place] [address], [place] [address] 09 Jan, 2013 [facility] [address] [id number] [address] [place] [address], [place] [address] Jan, [facility] [address] [id number] [address] [place] [address], [place] [address] 26 Dec, 2012 [facility] [address] [id number] [address] [place] [address], [place] [address] 16 Dec, 2012 [facility] [address] [id number] [address] [place] [address], [place] [address] 16 Dec, 2012 [facility] [address] [id number] [address] [place] [address], [place] [address] 13 Dec, 2012 [facility] [address] [id number] [address] [place] [address], [place] [address] 17 Nov, 2012 [facility] [address] [id number] [address] [place] [address], [place] [address] 17 Nov, 2012 [facility] [address] [id number] [address] [place] [address], [place] [address] Nov, [facility] [address] [id number] [address] [place] [address], [place] [address] Nov, [facility] [address] [id number] [address] [place] [address], [place] [address] Oct, [facility] [address] [id number] [address] [place] [address], [place] [address] Sep, [facility] [address] [id number] [address] [place] [address], [place] [address] August, [facility] [address] [id number] [address] [place] [address], [place] [address] August, [facility] [address] [id number] [address] [place] [address], [place] [address] August, [facility] [address] [id number] [address] [place] [address], [place] [address] August, [facility] [address] [id number] [address] [place] [address], [place] [address] August, [facility] [address] [id number] [address] [place] [address], [place] [address] August, [facility] [address] [id number] [address] [place] [address], [place] [address] August, [facility] [address] [id number] [address] [place] [address], [place] [address] August, [facility] [address] [id number] [address] [place] [address], [place] [address] August, [facility] [address] [id number] [address] [place] [address], [place] [address] August, [facility] [address] [id number] [address] [place] [address], [place] [address] August, [facility] [address] [id number] [address] [place] [address], [place] [address] August, [facility] [address] [id number] [address] [place] [address], [place] [address] Jul, [facility] [address] [id number] [address] [place] [address], [place] [address] Jul, [facility] [address] [id number] [address] [place] [address], [place] [address] Jul, [facility] [address] [id number] [address] [place] [address], [place] [address] Jul, [facility] [address] [id number] [address] [place] [address], [place] [address] Jul, [facility] [address] [id number] [address] [place] [address], [place] [address] Jul, [facility] [address] [id number] [address] [place] [address], [place] [address] Jul, [facility] [address] [id number] [address] [place] [address], [place] [address] Jul, [facility] [address] [id number] [address] [place] [address], [place] [address] Jul, [facility] [address] [id number] [address] [place] [address], [place] [address] Jul, [facility] [address] [id number] [address] [place] [address], [place] [address] Jul, [facility] [address] [id number] [address] [place] [address], [place] [address] Jun, [facility] [address] [id number] [address] [place] [address], [place] [address] Jun, [facility] [address] [id number] [address] [place] [address], [place] [address] Jun, [facility] [address] [id number] [address] [place] [address], [place] [address] Jun, [facility] [address] [id number] [address] [place] [address], [place] [address] May, [facility] [address] [id number] [address] [place] [address], [place] [address] 14 May, 2012 [facility] [address] [id number] [address] [place] [address], [place] [address] 05 May, 2012 [facility] [address] [id number] [address] [place] [address], [place] [address] 04 May, 2012 [facility] [address] [id number] [address] [place] [address], [place] [address] 04 May, 2012 [facility] [address] [id number] [address] [place] [address], [place] [address] May, [facility] [address] [id number] [address] [place] [address], [place] [address] Apr, [facility] [address] [id number] [address] [place] [address], [place] [address] Apr, [facility] [address] [id number] [address] [place] [address], [place] [address] 30 Apr, 2012 [facility] [address] [id number] [address] [place] [address], [place] [address] Apr, [facility] [address] [id number] [address] [place] [address], [place] [address] 15 Mar, 2012 [facility] [address] [id number] [address] [place] [address], [place] [address] 14 Mar, 2012 [facility] [address] [id number] [address] [place] [address], [place] [address] 14 Mar, 2012 [facility] [address] [id number] [address] [place] [address], [place] [address] 14 Mar, 2012 [facility] [address] [id number] [address] [place] [address], [place] [address] 14 Mar, 2012 [facility] [address] [id number] [address] [place] [address], [place] [address] 06 Mar, 2012 [facility] [address] [id number] [address] [place] [address], [place] [address] Mar, [facility] [address] [id number] [address] [place] [address], [place] [address] Feb, [facility] [address] [id number] [address] [place] [address], [place] [address] Feb, [facility] [address] [id number] [address] [place] [address], [place] [address] Feb, [facility] [address] [id number] [address] [place] [address], [place] [address] Feb, [facility] [address] [id number] [address] [place] [address], [place] [address] Jan, [facility] [address] [id number] [address] [place] [address], [place] [address] Jan, [facility] [address] [id number] [address] [place] [address], [place] [address] Jan, [facility] [address] [id number] [address] [place] [address], [place] [address] Jan, [facility] [address] [id number] [address] [place] [address], [place] [address] Jan, [facility] [address] [id number] [address] [place] [address], [place] [address] Jan, [facility] [address] [id number] [address] [place] [address], [place] [address] Dec, [facility] [address] [id number] [address] [place] [address] Dec, [facility] [address] [id number] [address] [place] [address], [place] [address] Nov, [facility] [address] [id number] [address] [place] [address], [place] [address] Sep, [facility] [address] [id number] [address] [place] [address], [place] [address] August, [facility] [address] [id number] [address] [place] [address], [place] [address] August, [facility] [address] [id number] [address] [place] [address], [place] [address] August, [facility] [address] [id number] [address] [place] [address], [place] [address] August, [facility] [address] [id number] [address] [place] [address], [place] [address] August, [facility] [address] [id number] [address] [place] [address], [place] [address] Jun, [facility] [address] [id number] [address] [place] [address], [place] [address] Jun, [facility] [address] [id number] [address] [place] [address], [place] [address] Apr, [facility] [address] [id number] [address] [place] [address], [place] [address] Apr, [facility] [address] [id number] [address] [place] [address], [place] [address] Mar, [facility] [address] [id number] [address] [place] [address], [place] [address] 22 Feb, 2011 [facility] [address] [id number] [address] [place] [address], [place] [address] 14 Feb, 2011 [facility] [address] [id number] [address] [place] [address], [place] [address] 14 Feb, 2011 [facility] [address] [id number] [address] [place] [address], [place] [address] 17 Jan, 2011 [facility] [address] [id number] [address] [place] [address], [place] [address] 15 Jan, 2011 [facility] [address] [id number] [address] [place] [address], [place] [address] 15 Jan, 2011 [facility] [address] [id number] [address] [place] [address], [place] [address] 14 Jan, 2011 [facility] [address] [facility] [id number] [address] [place] [address] 15 May, 2010 [facility] [address] [facility] [id number] [address] [place] [address] Mar, [facility] [address] [facility] [id number] [address] [place] [address] Oct, [facility] [address] [facility] [id number] [address] [place] [address] Sep, [facility] [address] [facility] [id number] [address] [place] [address] Mar, [facility] [address] [facility] [id number] [address] [place] [address] Jan, [facility] [address] [facility] [id number] [address] [place] [address] Jan, [facility] [address] [facility] [id number] [address] [place] [address] May, IMMUNIZATIONS No Known Immunizations SOCIAL HISTORY Never Assessed REASON FOR VISIT [place] [place] VITAL SIGNS MEDICATIONS Unknown Medications RESULTS No Results PROCEDURES No Known procedures INSTRUCTIONS MEDICATIONS ADMINISTERED No Known Medications MEDICAL (GENERAL) HISTORY Type Description Date Medical History hypertension Medical History Colposcopy with loop electro de excision of the cervix was performed 06/2012, mild squamous atypia (no definite dyplasia). Performed at [facility] Dr. Joy. Medical History [...]
--- OUTSIDE RECORDS SUMMARY | 2019-11-23 06:04 | XMS REPORT ---
Author Author Liana Coe Doctor Organization 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 [employer] Programmer Name Role Phone Migration, Doctor Unavailable Unavailable PROBLEMS Type Condition ICD9-CM Code HGZ79-LV Code Onset Dates Condition S tatus SNOMED Code Problem Hematuria, unspecified type R31.9 Ac tive 78311986 Problem Abnormal renal ultrasound R93.429 Acti ve [id number] Problem Anxiety F41.9 Active 85523927 Problem Hypokalemia E87.6 Active 63105669 Problem Abnormal glucose R73.09 Active 102 852227 Problem Chronic pain due to trauma G89.21 Act juanis 889093616 Problem Neuroforaminal stenosis of spine M99.89 Active 313787477206 Problem Neck pain M54.2 Active 90069276 Problem Essential hypertension I10 Active 35703396 Problem Mixed hyperlipidemia E78.2 Active 53339605 ALLERGIES No Information ENCOUNTERS Encounter Location Date Diagnosis [place] [address] [facility] [id number] [address] [place] [id number] May, Neuroforaminal stenosis of s pine M99.89 [place] [address] [facility] [id number] [address] [place] [address] May, [facility] [address] [facility] [id number] [address] [place] [address] May, Congestion of nasal sinus R0 9.81 [facility] [address] [facility] [id number] [address] [place] [address] May, [facility] [address] [facility] [id number] [address] [place] [address] Apr, Neuroforaminal stenosis of s pine M99.89 [facility] [address] [facility] [id number] [address] [place] [address] Apr, Neuroforaminal stenosis of s pine M99.89 and Chronic pain due to trauma G89.21 [facility] [address] [id number] [address] [place] [address] Mar, UTI (urinary tract infection ) N39.0 [facility] [address] [id number] [address] [place] [address] Mar, Vertigo R42 [facility] [address] [id number] [address] [place] [address] Mar, Neuroforaminal stenosis of s jose M99.89 [facility] [address] [id number] [address] [place] [address] Feb, Extensor tendon disruption M 67.89 [facility] [address] [id number] [address] [place] [address] Feb, Neuroforaminal stenosis of ayla garcia M99.89 and High risk medication use Z79.899 [facility] [address] [id number] [address] [place] [address] Jan, Hypokalemia E87.6 [facility] [address] [id number] [address] [place] [phone] Jan, Flank pain R10.9 and Acute r ight-sided low back pain without sciatica M54.5 [facility] [address] [id number] [address] [place] [phone] Jan, Hypokalemia E87.6 [facility] [address] [id number] [address] [place] [phone] Jan, [facility] [address] [id number] [address] [place] [phone] Jan, URI, acute J06.9 [facility] [address] [id number] [address] [place] [address] Jan, Neuroforaminal stenosis of ayla garcia M99.89 [facility] [address] [id number] [address] [place] [address] 13 Dec, 2017 Lateral epicondylitis, right elbow M77.11 [place] [address] [address] 11 Dec, 2017 Allergic rhinitis due to monica rosalina, unspecified seasonality J30.1 and Allergic conjunctivitis of both eyes H10.13 [place] [address] [address] 10 Dec, 2017 Neuroforaminal stenosis of s pine M99.89 [place] [address] [address] 06 Dec, 2017 Mixed hyperlipidemia E78.2 [place] [address] [address] 05 Dec, 2017 Abnormal glucose R73.09 ; Ab normal renal ultrasound R93.429 ; Dysuria R30.0 ; Cystitis without hematuria N30.90 ; Hypokalemia E87.6 ; Mixed hyperlipidemia E78.2 and Hematuria, unspecified type R31.9 [place] [address] [address] Nov, Hypokalemia E87.6 ; Mixed hy perlipidemia E78.2 and Hematuria, unspecified type R31.9 [place] [address] [address] Nov, [place] [address] [address] Nov, Hypokalemia E87.6 [place] [address] [address] Nov, [place] [address] [address] Nov, Abnormal renal ultrasound R9 3.429 [place] [address] [address] Nov, Abnormal renal ultrasound R9 3.429 [place] [address] [id number] [address] [place] [phone] 09 Nov, 2017 Hematuria, unspecified type R31.9 and Neuroforaminal stenosis of spine M99.89 [facility] [address] [id number] [address] [place] [address] Nov, Dysuria R30.0 [place] [address] [id number] [address] [place] [address] Oct, Lateral epicondylitis, right elbow M77.11 [place] [address] [id number] [address] [place] [address] Oct, Neuroforaminal stenosis of s jose M99.89 ; Visit for TB skin test Z11.1 and Essential hypertension I10 [place] [address] [id number] [address] [place] [phone] Oct, [place] [address] [id number] [address] [place] [address] Oct, Neuroforaminal stenosis of s pine M99.89 [place] [address] [id number] [address] [place] [address] Oct, Visit for TB skin test Z11.1 [place] [address] [id number] [address] [place] [address] 05 Oct, 2017 Cystitis without hematuria N 30.90 [place] [address] [id number] [address] [place] [address] Sep, Screening breast examination Z12.39 [place] [address] [id number] [address] [place] [address] Sep, Dysuria R30.0 and Cystitis w ithout hematuria N30.90 [place] [address] [id number] [address] [place] [address] 14 Sep, 2017 Essential hypertension I10 a nd Neuroforaminal stenosis of spine M99.89 [place] [address] [id number] [address] [place] [address] Sep, Abnormal glucose R73.09 [place] [address] [id number] [address] [place] [address] August, Lateral epicondylitis, right elbow M77.11 [place] [address] [id number] [address] [place] [address] August, Screen for STD (sexually tra nsmitted disease) Z11.3 [place] [address] [id number] [address] [place] [address] August, Neuroforaminal stenosis of s jose M99.89 ; Mixed hyperlipidemia E78.2 ; Elevated fasting glucose R73.01 ; Screening mammogram, encounter for Z12.31 and Encounter for well woman exam without gynecological exam Z00.00 [place] [address] [id number] [address] [place] [address] August, Neuroforaminal stenosis of s pine M99.89 [place] [address] [id number] [address] [place] [address] August, Essential hypertension I10 ; Hypokalemia E87.6 and Mixed hyperlipidemia E78.2 [place] [address] [id number] [address] [place] [address] Jul, [place] [address] [id number] [address] [place] [address] Jul, Neuroforaminal stenosis of s pine M99.89 [place] [address] [id number] [address] [place] [address] Jul, Lateral epicondylitis, right elbow M77.11 [place] [address] [id number] [address] [place] [address] Jul, [place] [address] [id number] [address] [place] [address] Jun, High ankle sprain of right l ower extremity, initial encounter S93.431A [place] [address] [id number] [address] [place] [address] Jun, Essential hypertension I10 [facility] [address] [id number] [address] [place] [address] Jun, [facility] [address] [id number] [address] [place] [address] Jun, [facility] [address] [id number] [address] [place] [address] Jun, Neuroforaminal stenosis of s pine M99.89 [facility] [address] [id number] [address] [place] [address] Jun, Pain of right upper extremit y M79.601 and Essential hypertension I10 [place] [address] [id number] [address] [place] [address] Jun, [place] [address] [facility] [id number] [address] [place] [address] Jun, Dysuria R30.0 ; Acute cystit is with hematuria N30.01 and Screen for STD (sexually transmitted disease) Z11.3 [place] [address] [id number] [address] [place] [address] May, Chronic pain due to trauma G 89.21 [place] [address] [id number] [address] [place] [address] May, Essential hypertension I10 [facility] [address] [id number] [address] [place] [address] May, Neuroforaminal stenosis of s pine M99.89 [facility] [address] [id number] [address] [place] [address] Apr, Allergic reaction, initial e ncounter T78.40XA [facility] [address] [id number] [address] [place] [address] Apr, Low back pain, unspecified b ack pain laterality, unspecified chronicity, with sciatica presence unspecified M54.5 ; Acute cystitis with hematuria N30.01 ; Neuroforaminal stenosis of spine M99.89 ; Bilateral acute serous otitis media, recurrence not specified H65.03 ; Mixed hyperlipidemia E78.2 ; Essential hypertension I10 ; Immunization counseling Z71.89 and Encounter for immunization Z23 [facility] [address] [id number] [address] [place] [address] 08 Apr, 2017 Neck pain M54.2 [facility] [address] [id number] [address] [place] [address] 26 Mar, 2017 Neuroforaminal stenosis of s pine M99.89 [place] [address] [id number] [address] [place] [address] Mar, Pharyngitis due to other org anism J02.8 [facility] [address] [id number] [address] [place] [address] Feb, Neuroforaminal stenosis of s pine M99.89 [facility] [address] [id number] [address] [place] [id number] 08 Feb, 2017 UTI (urinary tract infection ) N39.0 [facility] [address] [id number] [address] [place] [address] 07 Feb, 2017 Recent urinary tract infecti on Z87.440 ; Neuroforaminal stenosis of spine M99.89 ; Neck pain M54.2 ; Chronic pain due to trauma G89.21 and Recurrent UTI N39.0 [facility] [address] [id number] [address] [place] [id number] 03 Feb, 2017 [facility] [address] [id number] [address] [place] [address] Jan, Neuroforaminal stenosis of s pine M99.89 [facility] [address] [id number] [address] [place] [address] 28 Dec, 2016 Neuroforaminal stenosis of s pine M99.89 [facility] [address] [id number] [address] [place] [address] 18 Dec, 2016 Acute seasonal allergic rhin itis due to pollen J30.1 [facility] [address] [id number] [address] [place] [address] 08 Dec, 2016 [facility] [address] [id number] [address] [place] [id number] 08 Dec, 2016 Acute seasonal allergic rhin itis, unspecified trigger J30.2 ; Allergic conjunctivitis of both eyes H10.13 and Dysfunction of both eustachian tubes H69.83 [facility] [address] [id number] [address] [place] [phone] 07 Dec, 2016 [place] [address] [id number] [address] [place] [address] Dec, Nevus D22.9 [place] [address] [facility] [id number] [address] [place] [address] Nov, Chronic pain due to trauma G 89.21 and Neuroforaminal stenosis of spine M99.89 [place] [address] [id number] [address] [place] [address] Nov, Neuroforaminal stenosis of s pine M99.89 ; Essential hypertension I10 ; Mixed hyperlipidemia E78.2 ; Hypokalemia E87.6 ; Neck pain M54.2 and Nevus D22.9 [place] [address] [id number] [address] [place] [address] Oct, Neuroforaminal stenosis of s pine M99.89 [facility] [address] [id number] [address] [place] [address] Sep, Neuroforaminal stenosis of s pine M99.89 [place] [address] [id number] [address] [place] [address] Sep, [place] [address] [id number] [address] [place] [address] August, [facility] [address] [facility] [id number] [address] [place] [address] August, Neck pain M54.2 and Neurofor aminal stenosis of spine M99.89 [facility] [address] [id number] [address] [place] [address] August, Routine gynecological examin ation Z01.419 and Screening breast examination Z12.39 [facility] [address] [id number] [address] [place] [address] Jul, [facility] [address] [id number] [address] [place] [address] Jul, [facility] [address] [id number] [address] [place] [address] Jul, Neuroforaminal stenosis of s pine M99.89 [facility] [address] [id number] [address] [place] [address] Jul, [facility] [address] [id number] [address] [place] [address] Jul, Neuroforaminal stenosis of l umbar 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 [facility] [address] [id number] [address] [place] [address] Jul, [facility] [address] [id number] [address] [place] [phone] Jul, [facility] [address] [id number] [address] [place] [address] Jun, Neuroforaminal stenosis of s pine M99.89 [facility] [address] [id number] [address] [place] [address] Jun, Uterine leiomyoma, unspecifi ed location D25.9 and Allergic reaction caused by a drug, initial encounter T78.40XA [facility] [address] [id number] [address] [place] [address] Jun, [facility] [address] [id number] [address] [place] [address] May, UTI symptoms R39.9 and Pain of right sacroiliac joint M53.3 [place] [address] [id number] [address] [place] [address] May, Neuroforaminal stenosis of s jose M99.89 [place] [address] [id number] [address] [place] [address] May, [place] [address] [facility] [id number] [address] [place] [address] May, Acute mucoid otitis media of left ear H65.112 and Acute non- recurrent maxillary sinusitis J01.00 [place] [address] [facility] [id number] [address] [place] [address] May, Acute bacterial conjunctivit is of both eyes H10.33 ; Left arm pain M79.602 and Hypokalemia E87.6 [place] [address] [facility] [id number] [address] [place] [address] Apr, [place] [address] [id number] [address] [place] [address] Apr, Neuroforaminal stenosis of s pine M99.89 ; Neck pain M54.2 ; Chronic pain due to trauma G89.21 ; Mixed hyperlipidemia E78.2 ; Essential hypertension I10 and Hypokalemia E87.6 [place] [address] [facility] [id number] [address] [place] [address] Mar, Oral candidiasis B37.0 ; Nathaniel roforaminal stenosis of spine M99.89 ; Neck pain M54.2 and Chronic pain due to trauma G89.21 [place] [address] [facility] [id number] [address] [place] [address] Feb, [place] [address] [facility] [id number] [address] [place] [phone] Feb, [place] [address] [facility] [id number] [address] [place] [address] Feb, UTI (urinary tract infection ) N39.0 [facility] [address] [id number] [address] [place] [id number] 09 Feb, 2016 Dysuria R30.0 [facility] [address] [id number] [address] [place] [address] 08 Feb, 2016 Dysuria R30.0 [facility] [address] [id number] [address] [place] [address] Feb, Neuroforaminal stenosis of s pine M99.89 ; Neck pain M54.2 ; Essential hypertension I10 ; Chronic pain due to trauma G89.21 ; Dysuria R30.0 ; Abnormal MRI, shoulder R93.8 and Acute cystitis without hematuria N30.00 [facility] [address] [id number] [address] [place] [address] Jan, [facility] [address] [id number] [address] [place] [address] Jan, [facility] [address] [id number] [address] [place] [address] Jan, [facility] [address] [id number] [address] [place] [address] Jan, Abnormal MRI R93.8 [facility] [address] [id number] [address] [place] [id number] 29 Dec, 2015 [facility] [address] [id number] [address] [place] [address] 15 Dec, 2015 Acute pain of left shoulder M25.512 [facility] [address] [id number] [address] [place] [address] 09 Dec, 2015 [facility] [address] [id number] [address] [place] [id number] 08 Dec, 2015 [facility] [address] [id number] [address] [place] [address] 07 Dec, 2015 Acute pain of left shoulder M25.512 [facility] [address] [id number] [address] [place] [address] Nov, [facility] [address] [id number] [address] [place] [address] Nov, Neuroforaminal stenosis of s pine M99.89 ; Neck pain M54.2 ; Abnormal mammogram R92.8 ; Essential hypertension I10 and Chronic pain due to trauma G89.21 [facility] [address] [id number] [address] [place] [address] Nov, [facility] [address] [id number] [address] [place] [address] Oct, Acute stress disorder F43.0 [facility] [address] [id number] [address] [place] [address] Oct, [facility] [address] [id number] [address] [place] [address] Oct, [facility] [address] [id number] [address] [place] [address] Oct, [facility] [address] [id number] [address] [place] [phone] Sep, [facility] [address] [id number] [address] [place] [id number] August, [facility] [address] [id number] [address] [place] [address] Jul, Neuroforaminal stenosis of s pine M99.89 ; Neck pain M54.2 ; Abnormal mammogram R92.8 and Essential hypertension I10 [facility] [address] [id number] [address] [place] [address] Jul, [facility] [address] [id number] [address] [place] [address] Jul, [facility] [address] [id number] [address] [place] [address] Jul, Abnormal mammogram R92.8 [facility] [address] [id number] [address] [place] [id number] 08 Jul, 2015 [facility] [address] [facility] [id number] [address] [place] [id number] Jul, UTI (urinary tract infection ) N39.0 [facility] [address] [facility] [id number] [address] [place] [address] Jul, Dysuria R30.0 [facility] [address] [facility] [id number] [address] [place] [address] Jun, [facility] [address] [facility] [id number] [address] [place] [phone] Jun, [facility] [address] [place] [id number] [address] [place] [phone] Jun, Hypokalemia E87.6 and Hematu martina R31.9 [place] [address] [place] [id number] [address] [place] [address] Jun, Hypokalemia E87.6 [facility] [address] [facility] [id number] [address] [place] [address] Jun, [facility] [address] [place] [id number] [address] [place] [id number] Jun, Hypokalemia E87.6 [facility] [address] [place] [id number] [address] [place] [address] Jun, Hypokalemia E87.6 [facility] [address] [place] [id number] [address] [place] [id number] 15 Jun, 2015 Neuroforaminal stenosis of s pine M99.89 ; Hypokalemia E87.6 ; Neck pain M54.2 ; Essential hypertension I10 ; Mixed hyperlipidemia E78.2 and Screening breast examination Z12.39 [place] [address] [facility] [id number] [address] [place] [address] 08 Jun, 2015 Dysuria R30.0 ; UTI (urinary tract infection) N39.0 and Hematuria R31.9 [place] [address] [facility] [id number] [address] [place] [address] May, [facility] [address] [place] [id number] [place] [id number] 18 May, 2015 High risk sexual behavior Z7 2.51 ; Hypokalemia E87.6 ; Neuroforaminal stenosis of spine M99.89 ; Neck pain M54.2 ; Essential hypertension I10 ; Mixed hyperlipidemia E78.2 ; STD exposure Z20.2 and Concern about STD in female without diagnosis Z71.1 [facility] [address] [facility] [id number] [address] [place] [id number] 16 May, 2015 Neuroforaminal stenosis of s pine M99.89 ; Neck pain M54.2 ; Hypokalemia E87.6 ; Essential hypertension I10 and Mixed hyperlipidemia E78.2 [facility] [address] [place] [id number] [address] [place] [id number] May, [facility] [address] [facility] [id number] [address] [place] [id number] 08 May, 2015 High risk sexual behavior Z7 2.51 ; STD exposure Z20.2 and Concern about STD in female without diagnosis Z71.1 [facility] [address] [facility] [id number] [address] [place] [address] May, [facility] [address] [facility] [id number] [address] [place] [address] Apr, Neuroforaminal stenosis of s pine M99.89 ; Mixed hyperlipidemia E78.2 ; Essential hypertension I10 and Hypokalemia E87.6 [facility] [address] [facility] [id number] [address] [place] [address] Mar, [facility] [address] [facility] [id number] [address] [place] [address] Mar, Hypokalemia E87.6 [facility] [address] [facility] [id number] [address] [place] [address] Mar, Neuroforaminal stenosis of s pine M99.89 ; Mixed hyperlipidemia E78.2 ; Neck pain M54.2 ; Essential hypertension I10 ; Abnormal fasting glucose R73.09 ; Hypokalemia E87.6 and Constipation K59.00 [facility] [address] [facility] [id number] [address] [place] [address] Feb, Neuroforaminal stenosis of s pine M99.89 ; Mixed hyperlipidemia E78.2 ; Neck pain M54.2 ; Essential hypertension I10 ; Abnormal fasting glucose R73.09 ; Hypokalemia E87.6 and Constipation K59.00 [facility] [address] [facility] [id number] [address] [place] [address] Feb, Elevated fasting blood sugar R73.01 [place] [address] [facility] [id number] [address] [place] [address] Feb, Elevated fasting blood sugar R73.01 [place] [address] [facility] [id number] [address] [place] [address] Feb, Hair loss L65.9 [place] [address] [facility] [id number] [address] [place] [address] Feb, Sinusitis J32.9 ; Essential hypertension I10 and Hair loss L65.9 [facility] [address] [facility] [id number] [address] [place] [address] Jan, [facility] [address] [facility] [id number] [address] [place] [address] Jan, Essential hypertension I10 ; Neuroforaminal stenosis of spine M99.89 ; Neck pain M54.2 ; Mixed hyperlipidemia E78.2 and Anxiety F41.9 [facility] [address] [facility] [id number] [address] [place] [address] Jan, [facility] [address] [facility] [id number] [address] [place] [address] Jan, Mixed hyperlipidemia E78.2 ; Essential (primary) hypertension I10 ; Strain of muscle, fascia and tendon at neck level, subsequent encounter S16.1XXD and Tension-type headache, unspecified, not intractable G44.209 [facility] [address] [id number] [address] [place] [address] Dec, Lumbar back pain 724.2 and N euroforaminal stenosis of spine 724.00 [facility] [address] [id number] [address] [place] [phone] Nov, [facility] [address] [id number] [address] [place] [address] Nov, Lumbar back pain 724.2 and N euroforaminal stenosis of spine 724.00 [place] [address] [facility] [id number] [address] [place] [address] Nov, Edema 782.3 ; Lumbar back pa in 724.2 ; Essential hypertension, benign 401.1 ; Hyperlipemia 272.4 ; Neuroforaminal stenosis of spine 724.00 and Post-concussion headache 339.20 [facility] [address] [id number] [address] [place] [phone] Nov, [facility] [address] [facility] [id number] [address] [place] [address] Nov, [facility] [address] [facility] [id number] [address] [place] [address] Oct, Essential hypertension, sheridan gn 401.1 [facility] [address] [facility] [id number] [address] [place] [address] Oct, Edema 782.3 ; Lumbar back pa in 724.2 ; Essential hypertension, benign 401.1 ; Hyperlipemia 272.4 ; Neuroforaminal stenosis of spine 724.00 and Post-concussion headache 339.20 [facility] [address] [facility] [id number] [address] [place] [address] Oct, [facility] [address] [facility] [id number] [address] [place] [address] Oct, Edema 782.3 [facility] [address] [id number] [address] [place] [address] Oct, Lumbar back pain 724.2 [facility] [address] [id number] [address] [place] [address] Oct, Cervicalgia 723.1 ; Lumbar b ack pain 724.2 and High risk medication use V58.69 [facility] [address] [id number] [address] [place] [phone] Sep, [facility] [address] [id number] [address] [place] [address] Sep, Lumbar strain 847.2 [facility] [address] [facility] [id number] [address] [place] [address] August, Edema 782.3 and Eustachian t ube dysfunction 381.81 [facility] [address] [facility] [id number] [address] [place] [address] August, [facility] [address] [id number] [address] [place] [address] August, Eustachian tube dysfunction 381.81 [facility] [address] [id number] [address] [place] [address] Jul, Otalgia 388.70 and Otitis me jonathon 382.9 [facility] [address] [id number] [address] [place] [phone] Jul, [facility] [address] [id number] [address] [place] [id number] Jul, [facility] [address] [id number] [address] [place] [address] Jul, [facility] [address] [facility] [id number] [address] [place] [phone] Jul, [facility] [address] [facility] [id number] [address] [place] [phone] Jul, [facility] [address] [id number] [address] [place] [address], [place] [address] Jun, [facility] [address] [id number] [address] [place] [address], [place] [address] 27 Jun, 2014 [facility] [address] [id number] [address] [place] [address], [place] [address] Jun, [facility] [address] [id number] [address] [place] [address], [place] [address] May, 2014 [facility] [address] [id number] [address] [place] [address], [place] [address] May, 2014 [facility] [address] [id number] [address] [place] [address], [place] [address] May, 2014 [facility] [address] [id number] [address] [place] [address], [place] [address] May, 2014 [facility] [address] [id number] [address] [place] [address], [place] [address] May, 2014 [facility] [address] [id number] [address] [place] [address], [place] [address] May, [facility] [address] [id number] [address] [place] [address], [place] [address] May, [facility] [address] [id number] [address] [place] [address], [place] [address] May, [facility] [address] [id number] [address] [place] [address], [place] [address] May, [facility] [address] [id number] [address] [place] [address], [place] [address] May, [facility] [address] [id number] [address] [place] [address], [place] [address] Apr, [facility] [address] [id number] [address] [place] [address], [place] [address] Apr, [facility] [address] [id number] [address] [place] [address] Apr, [facility] [address] [id number] [address] [place] [address], [place] [address] Apr, [facility] [address] [id number] [address] [place] [address], [place] [address] Apr, [facility] [address] [id number] [address] [place] [address], [place] [address] Apr, [facility] [address] [id number] [address] [place] [address], [place] [address] Apr, [facility] [address] [id number] [address] [place] [address], [place] [address] Apr, [facility] [address] [id number] [address] [place] [address], [place] [address] Apr, [facility] [address] [id number] [address] [place] [address], [place] [address] Apr, [facility] [address] [id number] [address] [place] [address], [place] [address] Apr, [facility] [address] [id number] [address] [place] [address], [place] [address] Apr, [facility] [address] [id number] [address] [place] [address], [place] [address] Apr, [facility] [address] [id number] [address] [place] [address], [place] [address] Apr, [facility] [address] [id number] [address] [place] [address], [place] [address] Apr, [facility] [address] [id number] [address] [place] [address], [place] [address] Mar, [facility] [address] [id number] [address] [place] [address], [place] [address] Mar, [facility] [address] [id number] [address] [place] [address], [place] [address] Mar, [facility] [address] [id number] [address] [place] [address], [place] [address] Mar, [facility] [address] [id number] [address] [place] [address], [place] [address] Feb, [facility] [address] [id number] [address] [place] [address], [place] [address] Feb, [facility] [address] [id number] [address] [place] [address], [place] [address] Feb, [facility] [address] [id number] [address] [place] [address], [place] [address] Feb, [facility] [address] [id number] [address] [place] [address], [place] [address] Jan, [facility] [address] [id number] [address] [place] [address], [place] [address] Jan, [facility] [address] [id number] [address] [place] [address], [place] [address] Jan, [facility] [address] [id number] [address] [place] [address], [place] [address] Jan, [facility] [address] [id number] [address] [place] [address], [place] [address] Jan, [facility] [address] [id number] [address] [place] [address], [place] [address] Jan, [facility] [address] [id number] [address] [place] [address], [place] [address] Jan, [facility] [address] [id number] [address] [place] [address], [place] [address] Jan, [facility] [address] [id number] [address] [place] [address], [place] [address] Dec, [facility] [address] [id number] [address] [place] [address], [place] [address] Dec, [facility] [address] [id number] [address] [place] [address], [place] [address] Dec, [facility] [address] [id number] [address] [place] [address], [place] [address] Dec, 2013 [facility] [address] [id number] [address] [place] [address], [place] [address] Oct, 2013 [facility] [address] [id number] [address] [place] [address], [place] [address] Oct, 2013 [facility] [address] [id number] [address] [place] [address], [place] [address] Oct, 2013 [facility] [address] [id number] [address] [place] [address], [place] [address] Oct, 2013 [facility] [address] [id number] [address] [place] [address], [place] [address] Oct, 2013 [facility] [address] [id number] [address] [place] [address], [place] [address] Oct, 2013 [facility] [address] [id number] [address] [place] [address], [place] [address] Oct, 2013 [facility] [address] [id number] [address] [place] [address], [place] [address] Oct, [facility] [address] [id number] [address] [place] [address], [place] [address] Sep, [facility] [address] [id number] [address] [place] [address], [place] [address] Sep, [facility] [address] [id number] [address] [place] [address], [place] [address] Sep, [facility] [address] [id number] [address] [place] [address], [place] [address] Sep, [facility] [address] [id number] [address] [place] [address], [place] [address] Sep, [facility] [address] [id number] [address] [place] [address], [place] [address] Sep, [facility] [address] [id number] [address] [place] [address], [place] [address] Sep, [facility] [address] [id number] [address] [place] [address], [place] [address] Sep, [facility] [address] [id number] [address] [place] [address], [place] [address] Sep, [facility] [address] [id number] [address] [place] [address], [place] [address] Sep, [facility] [address] [id number] [address] [place] [address], [place] [address] August, [facility] [address] [id number] [address] [place] [address], [place] [address] August, [facility] [address] [id number] [address] [place] [address], [place] [address] August, [facility] [address] [id number] [address] [place] [address], [place] [address] August, [facility] [address] [id number] [address] [place] [address], [place] [address] August, [facility] [address] [id number] [address] [place] [address], [place] [address] August, [facility] [address] [id number] [address] [place] [address], [place] [address] August, [facility] [address] [id number] [address] [place] [address], [place] [address] August, [facility] [address] [id number] [address] [place] [address], [place] [address] August, [facility] [address] [id number] [address] [place] [address], [place] [address] August, [facility] [address] [id number] [address] [place] [address], [place] [address] August, [facility] [address] [id number] [address] [place] [address], [place] [address] August, [facility] [address] [id number] [address] [place] [address], [place] [address] Jul, [facility] [address] [id number] [facility] [place] [address] Jul, [facility] [address] [id number] [address] [place] [address], [place] [address] Jul, [facility] [address] [id number] [address] [place] [address], [place] [address] Jul, [facility] [address] [id number] [address] [place] [address], [place] [address] Jul, [facility] [address] [id number] [address] [place] [address], [place] [address] Jul, [facility] [address] [id number] [address] [place] [address], [place] [address] Jun, [facility] [address] [id number] [address] [place] [address], [place] [address] Jun, [facility] [address] [id number] [address] [place] [address], [place] [address] May, [facility] [address] [id number] [address] [place] [address], [place] [address] May, [facility] [address] [id number] [address] [place] [address], [place] [address] Apr, [facility] [address] [id number] [address] [place] [address], [place] [address] Apr, [facility] [address] [id number] [address] [place] [address], [place] [address] Apr, [facility] [address] [id number] [address] [place] [address], [place] [address] Apr, [facility] [address] [id number] [address] [place] [address], [place] [address] Apr, [facility] [address] [id number] [address] [place] [address] [address] Apr, [facility] [address] [id number] [address] [place] [address], [place] [address] Apr, [facility] [address] [id number] [address] [place] [address], [place] [address] Apr, [facility] [address] [id number] [address] [place] [address], [place] [address] Apr, [facility] [address] [id number] [address] [place] [address], [place] [address] Apr, [facility] [address] [id number] [address] [place] [address], [place] [address] Apr, [facility] [address] [id number] [address] [place] [address], [place] [address] Apr, [facility] [address] [id number] [address] [place] [address], [place] [address] Apr, [facility] [address] [id number] [address] [place] [address], [place] [address] Mar, [facility] [address] [id number] [address] [place] [address], [place] [address] Mar, [facility] [address] [id number] [address] [place] [address], [place] [address] Mar, [facility] [address] [id number] [address] [place] [address], [place] [address] Mar, [facility] [address] [id number] [address] [place] [address] Feb, [facility] [address] [id number] [address] [place] [address], [place] [address] Feb, [facility] [address] [id number] [address] [place] [address], [place] [address] Feb, [facility] [address] [id number] [address] [place] [address], [place] [address] Feb, [facility] [address] [id number] [address] [place] [address], [place] [address] 14 Jan, 2013 [facility] [address] [id number] [address] [place] [address], [place] [address] 14 Jan, 2013 [facility] [address] [id number] [address] [place] [address], [place] [address] 11 Jan, 2013 [facility] [address] [id number] [address] [place] [address], [place] [address] 11 Jan, 2013 [facility] [address] [id number] [address] [place] [address], [place] [id number] 10 Jan, 2012 [facility] [address] [id number] [address] [place] [address], [place] [id number] 10 Jan, 2013 [facility] [address] [id number] [address] [place] [address], [place] [id number] 09 Jan, 2013 [facility] [address] [id number] [address] [place] [address], [place] [id number] 09 Jan, 2013 [facility] [address] [id number] [address] [place] [address], [place] [id number] Jan, [facility] [address] [id number] [address] [place] [address], [place] [id number] 26 Dec, 2012 [facility] [address] [id number] [address] [place] [address], [place] [id number] 16 Dec, 2012 [facility] [address] [id number] [address] [place] [address], [place] [id number] 16 Dec, 2012 [facility] [address] [id number] [address] [place] [address], [place] [id number] 13 Dec, 2012 [facility] [address] [id number] [address] [place] [address], [place] [id number] 17 Nov, 2012 [facility] [address] [id number] [address] [place] [address], [place] [id number] 17 Nov, 2012 [facility] [address] [id number] [address] [place] [address], [place] [id number] Nov, [facility] [address] [id number] [address] [place] [address], [place] [address] Nov, [facility] [address] [id number] [address] [place] [address], [place] [id number] Oct, [facility] [address] [id number] [address] [place] [address], [place] [id number] Sep, [facility] [address] [id number] [address] [place] [address], [place] [id number] August, [facility] [address] [id number] [address] [place] [address], [place] [address] August, [facility] [address] [id number] [address] [place] [address], [place] [address] August, [facility] [address] [id number] [address] [place] [address], [place] [address] August, [facility] [address] [id number] [address] [place] [address], [place] [address] August, [facility] [address] [id number] [address] [place] [address], [place] [address] August, [facility] [address] [id number] [address] [place] [address], [place] [address] August, [facility] [address] [id number] [address] [place] [address], [place] [id number] August, [facility] [address] [id number] [address] [place] [address], [place] [id number] August, [facility] [address] [id number] [address] [place] [address], [place] [id number] August, [facility] [address] [id number] [address] [place] [address], [place] [address] August, [facility] [address] [id number] [address] [place] [address], [place] [address] August, [facility] [address] [id number] [address] [place] [address], [place] [id number] Jul, [facility] [address] [id number] [address] [place] [address], [place] [address] Jul, [facility] [address] [id number] [address] [place] [address], [place] [address] Jul, [facility] [address] [id number] [address] [place] [address], [place] [address] Jul, [facility] [address] [id number] [address] [place] [address], [place] [id number] Jul, [facility] [address] [id number] [address] [place] [address], [place] [address] Jul, [facility] [address] [id number] [address] [place] [address], [place] [id number] Jul, [facility] [address] [id number] [address] [place] [address], [place] [address] Jul, [facility] [address] [id number] [address] [place] [address], [place] [address] Jul, [facility] [address] [id number] [address] [place] [address], [place] [address] Jul, [facility] [address] [id number] [address] [place] [address], [place] [address] Jul, [facility] [address] [id number] [address] [place] [address], [place] [address] Jun, [facility] [address] [id number] [address] [place] [address], [place] [address] Jun, [facility] [address] [id number] [address] [place] [address], [place] [address] Jun, [facility] [address] [id number] [address] [place] [address], [place] [address] Jun, [facility] [address] [id number] [address] [place] [address], [place] [address] May, [facility] [address] [id number] [address] [place] [address], [place] [address] 14 May, [address] [facility] [address] [id number] [address] [place] [address], [place] [address] 05 May, [address] [facility] [address] [id number] [address] [place] [address], [place] [address] 04 May, [address] [facility] [address] [id number] [address] [place] [address], [place] [address] 04 May, [address] [facility] [address] [id number] [address] [place] [address], [place] [address] May, [facility] [address] [id number] [address] [place] [address], [place] [address] Apr, [facility] [address] [id number] [address] [place] [address], [place] [address] Apr, [facility] [address] [id number] [address] [place] [address], [place] [address] 30 Apr, 2012 [facility] [address] [id number] [address] [place] [address], [place] [address] Apr, [facility] [address] [id number] [address] [place] [address], [place] [address] 15 Mar, [address] [facility] [address] [id number] [address] [place] [address], [place] [address] 14 Mar, 2012 [facility] [address] [id number] [address] [place] [address], [place] [address] 14 Mar, [address] [facility] [address] [id number] [address] [place] [address], [place] [address] 14 Mar, [address] [facility] [address] [id number] [address] [place] [address], [place] [address] 14 Mar, 2012 [facility] [address] [id number] [address] [place] [address], [place] [address] 06 Mar, [address] [facility] [address] [id number] [address] [place] [address], [place] [address] Mar, [facility] [address] [id number] [address] [place] [address], [place] [address] Feb, [facility] [address] [id number] [address] [place] [address], [place] [address] Feb, [facility] [address] [id number] [address] [place] [address], [place] [address] Feb, [facility] [address] [id number] [address] [place] [address], [place] [address] Feb, [facility] [address] [id number] [address] [place] [address], [place] [address] Jan, [facility] [address] [id number] [address] [place] [address], [place] [address] Jan, [facility] [address] [id number] [address] [place] [address], [place] [address] Jan, [facility] [address] [id number] [address] [place] [address], [place] [address] Jan, [facility] [address] [id number] [address] [place] [address], [place] [address] Jan, [facility] [address] [id number] [address] [place] [address], [place] [address] Jan, [facility] [address] [id number] [address] [place] [address], [place] [address] Dec, [facility] [address] [id number] [address] [place] [id number] Dec, [facility] [address] [id number] [address] [place] [address], [place] [address] Nov, [facility] [address] [id number] [address] [place] [address], [place] [address] Sep, [facility] [address] [id number] [address] [place] [address], [place] [address] August, [facility] [address] [id number] [address] [place] [address], [place] [address] August, [facility] [address] [id number] [address] [place] [address], [place] [address] August, [facility] [address] [id number] [address] [place] [address], [place] [address] August, [facility] [address] [id number] [address] [place] [address], [place] [address] August, [facility] [address] [id number] [address] [place] [address], [place] [address] Jun, [facility] [address] [id number] [address] [place] [address], [place] [address] Jun, [facility] [address] [id number] [address] [place] [address], [place] [address] Apr, [facility] [address] [id number] [address] [place] [address], [place] [address] Apr, [facility] [address] [id number] [address] [place] [address], [place] [address] Mar, [facility] [address] [id number] [address] [place] [address], [place] [address] 22 Feb, [address] [facility] [address] [id number] [address] [place] [address], [place] [address] 14 Feb, 2011 [facility] [address] [id number] [address] [place] [address], [place] [address] 14 Feb, [address] [facility] [address] [id number] [address] [place] [address], [place] [address] 17 Jan, 2011 [facility] [address] [id number] [address] [place] [address], [place] [address] 15 Jan, [address] [facility] [address] [id number] [address] [place] [address], [place] [address] 15 Jan, [address] [facility] [address] [id number] [address] [place] [address], [place] [address] 14 Jan, 2011 [facility] [address] [facility] [id number] [address] [place] [id number] 15 May, 2010 [facility] [address] [facility] [id number] [address] [place] [id number] Mar, [facility] [address] [facility] [id number] [address] [place] [id number] Oct, [facility] [address] [facility] [id number] [address] [place] [id number] Sep, [facility] [address] [facility] [id number] [address] [place] [id number] Mar, [facility] [address] [facility] [id number] [address] [place] [id number] Jan, [facility] [address] [facility] [id number] [address] [place] [id number] Jan, [facility] [address] [facility] [id number] [address] [place] [id number] May, IMMUNIZATIONS No Known Immunizations SOCIAL HISTORY Never Assessed REASON FOR VISIT EMR-[facility] PLAN OF CARE VITAL SIGNS MEDICATIONS Unknown Medications RESULTS No Results PROCEDURES No Known procedures INSTRUCTIONS MEDICATIONS ADMINISTERED No Known Medications MEDICAL (GENERAL) HISTORY Type Description Date Medical History hypertension Medical History Colposcopy with loop electro de excision of the cervix was performed 06/2012, mild squamous atypia (no definite dyplasia). Performed at [facility] Dr. Joy. Medical History Acute suppurative [...]
--- OUTSIDE RECORDS SUMMARY | 2019-11-23 06:05 | XMS REPORT ---
Author Author Liana Coe Doctor Organization [facility] Address Unknown Phone Unavailable Care Team Providers Care Application Infrastructure Engineer Name Role Phone Migration, Doctor Unavailable Unavailable PROBLEMS Type Condition ICD9-CM Code KSB36-FU Code Onset Dates Condition S tatus SNOMED Code Problem Hematuria, unspecified type R31.9 Ac tive 48667272 Problem Abnormal renal ultrasound R93.429 Acti ve [id number] Problem Anxiety F41.9 Active 90523824 Problem Hypokalemia E87.6 Active 89594398 Problem Abnormal glucose R73.09 Active 102 009727 Problem Chronic pain due to trauma G89.21 Act juanis [id number] Problem Neuroforaminal stenosis of spine M99.89 Active [id number] Problem Neck pain M54.2 Active 97328405 Problem Essential hypertension I10 Active 30356634 Problem Mixed hyperlipidemia E78.2 Active 03265100 ALLERGIES No Information ENCOUNTERS Encounter Location Date Diagnosis [id number] [address] [facility] [id number] [address] [place] [address] May, Neuroforaminal stenosis of s pine M99.89 [place] [address] [facility] [id number] [address] [place] [address] May, [facility] [address] [facility] [id number] [address] [place] [address] May, Congestion of nasal sinus R0 9.81 [facility] [address] [facility] [id number] [address] [place] [address] May, [facility] [address] [facility] [id number] [address] [place] [address] Apr, Neuroforaminal stenosis of s pine M99.89 [facility] [address] [facility] [id number] [address] [place] [address] Apr, Neuroforaminal stenosis of s pine M99.89 and Chronic pain due to trauma G89.21 [facility] [address] [id number] [address] [place] [address] Mar, UTI (urinary tract infection ) N39.0 [facility] [address] [id number] [address] [place] [address] Mar, Vertigo R42 [facility] [address] [id number] [address] [place] [address] Mar, Neuroforaminal stenosis of s jose M99.89 [facility] [address] [id number] [address] [place] [address] Feb, Extensor tendon disruption M 67.89 [facility] [address] [id number] [address] [place] [address] Feb, Neuroforaminal stenosis of ayla garcia M99.89 and High risk medication use Z79.899 [facility] [address] [id number] [address] [place] [address] Jan, Hypokalemia E87.6 [facility] [address] [id number] [address] [place] [address] Jan, Flank pain R10.9 and Acute r ight-sided low back pain without sciatica M54.5 [facility] [address] [id number] [address] [place] [address] Jan, Hypokalemia E87.6 [facility] [address] [id number] [address] [place] [address] Jan, [facility] [address] [id number] [address] [place] [address] Jan, URI, acute J06.9 [facility] [address] [id number] [address] [place] [address] Jan, Neuroforaminal stenosis of ayla garcia M99.89 [facility] [address] [id number] [address] [place] [address] 13 Dec, 2017 Lateral epicondylitis, right elbow M77.11 [place] [address] [address] 11 Dec, 2017 Allergic rhinitis due to monica rosalina, unspecified seasonality J30.1 and Allergic conjunctivitis of both eyes H10.13 [place] [address] [address] 10 Dec, 2017 Neuroforaminal stenosis of s pine M99.89 [place] [address] [address] 06 Dec, 2017 Mixed hyperlipidemia E78.2 [place] [address] [address] 05 Dec, 2017 Abnormal glucose R73.09 ; Ab normal renal ultrasound R93.429 ; Dysuria R30.0 ; Cystitis without hematuria N30.90 ; Hypokalemia E87.6 ; Mixed hyperlipidemia E78.2 and Hematuria, unspecified type R31.9 [place] [address] [address] Nov, Hypokalemia E87.6 ; Mixed hy perlipidemia E78.2 and Hematuria, unspecified type R31.9 [place] [address] [address] Nov, [place] [address] [address] Nov, Hypokalemia E87.6 [place] [address] [address] Nov, [place] [address] [address] Nov, Abnormal renal ultrasound R9 3.429 [place] [address] [address] Nov, Abnormal renal ultrasound R9 3.429 [place] [address] [id number] [address] [place] [address] 09 Nov, 2017 Hematuria, unspecified type R31.9 and Neuroforaminal stenosis of spine M99.89 [facility] [address] [id number] [address] [place] [address] Nov, Dysuria R30.0 [place] [id number] [id number] [address] [place] [address] Oct, Lateral epicondylitis, right elbow M77.11 [place] [address] [id number] [address] [place] [address] Oct, Neuroforaminal stenosis of s jose M99.89 ; Visit for TB skin test Z11.1 and Essential hypertension I10 [place] [address] [id number] [address] [place] [address] Oct, [place] [address] [id number] [address] [place] [address] Oct, Neuroforaminal stenosis of s pine M99.89 [place] [address] [id number] [address] [place] [address] Oct, Visit for TB skin test Z11.1 [place] [address] [id number] [address] [place] [address] 05 Oct, 2017 Cystitis without hematuria N 30.90 [place] [address] [id number] [address] [place] [address] Sep, Screening breast examination Z12.39 [place] [address] [id number] [address] [place] [address] Sep, Dysuria R30.0 and Cystitis w ithout hematuria N30.90 [place] [address] [id number] [address] [place] [address] 14 Sep, 2017 Essential hypertension I10 a nd Neuroforaminal stenosis of spine M99.89 [place] [address] [id number] [address] [place] [address] Sep, Abnormal glucose R73.09 [place] [address] [id number] [address] [place] [address] August, Lateral epicondylitis, right elbow M77.11 [place] [address] [id number] [address] [place] [address] August, Screen for STD (sexually tra nsmitted disease) Z11.3 [place] [address] [id number] [address] [place] [address] August, Neuroforaminal stenosis of s jose M99.89 ; Mixed hyperlipidemia E78.2 ; Elevated fasting glucose R73.01 ; Screening mammogram, encounter for Z12.31 and Encounter for well woman exam without gynecological exam Z00.00 [place] [address] [id number] [address] [place] [address] August, Neuroforaminal stenosis of s pine M99.89 [place] [address] [id number] [address] [place] [address] August, Essential hypertension I10 ; Hypokalemia E87.6 and Mixed hyperlipidemia E78.2 [place] [address] [id number] [address] [place] [address] Jul, [place] [address] [id number] [address] [place] [address] Jul, Neuroforaminal stenosis of s pine M99.89 [place] [address] [id number] [address] [place] [address] Jul, Lateral epicondylitis, right elbow M77.11 [place] [address] [id number] [address] [place] [address] Jul, [place] [address] [id number] [address] [place] [address] Jun, High ankle sprain of right l ower extremity, initial encounter S93.431A [place] [address] [id number] [address] [place] [address] Jun, Essential hypertension I10 [facility] [address] [id number] [address] [place] [address] Jun, [facility] [address] [id number] [address] [place] [address] Jun, [facility] [address] [id number] [address] [place] [address] Jun, Neuroforaminal stenosis of s pine M99.89 [facility] [address] [id number] [address] [place] [address] Jun, Pain of right upper extremit y M79.601 and Essential hypertension I10 [place] [address] [id number] [address] [place] [address] Jun, [place] [address] [facility] [id number] [address] [place] [address] Jun, Dysuria R30.0 ; Acute cystit is with hematuria N30.01 and Screen for STD (sexually transmitted disease) Z11.3 [place] [address] [id number] [address] [place] [address] May, Chronic pain due to trauma G 89.21 [place] [address] [id number] [address] [place] [address] May, Essential hypertension I10 [facility] [address] [id number] [address] [place] [address] May, Neuroforaminal stenosis of s pine M99.89 [facility] [address] [id number] [address] [place] [address] Apr, Allergic reaction, initial e ncounter T78.40XA [facility] [address] [id number] [address] [place] [address] Apr, Low back pain, unspecified b ack pain laterality, unspecified chronicity, with sciatica presence unspecified M54.5 ; Acute cystitis with hematuria N30.01 ; Neuroforaminal stenosis of spine M99.89 ; Bilateral acute serous otitis media, recurrence not specified H65.03 ; Mixed hyperlipidemia E78.2 ; Essential hypertension I10 ; Immunization counseling Z71.89 and Encounter for immunization Z23 [facility] [address] [id number] [address] [place] [address] 08 Apr, 2017 Neck pain M54.2 [facility] [address] [id number] [address] [place] [address] 26 Mar, 2017 Neuroforaminal stenosis of s pine M99.89 [place] [address] [id number] [address] [place] [address] Mar, Pharyngitis due to other org anism J02.8 [facility] [address] [id number] [address] [place] [address] Feb, Neuroforaminal stenosis of s pine M99.89 [facility] [address] [id number] [address] [place] [address] 08 Feb, 2017 UTI (urinary tract infection ) N39.0 [facility] [address] [id number] [address] [place] [address] 07 Feb, 2017 Recent urinary tract infecti on Z87.440 ; Neuroforaminal stenosis of spine M99.89 ; Neck pain M54.2 ; Chronic pain due to trauma G89.21 and Recurrent UTI N39.0 [facility] [address] [id number] [address] [place] [address] 03 Feb, 2017 [facility] [address] [id number] [address] [place] [address] Jan, Neuroforaminal stenosis of s pine M99.89 [facility] [address] [id number] [address] [place] [address] 28 Dec, 2016 Neuroforaminal stenosis of s pine M99.89 [facility] [address] [id number] [address] [place] [address] 18 Dec, 2016 Acute seasonal allergic rhin itis due to pollen J30.1 [facility] [address] [id number] [address] [place] [address] 08 Dec, 2016 [facility] [address] [id number] [address] [place] [address] 08 Dec, 2016 Acute seasonal allergic rhin itis, unspecified trigger J30.2 ; Allergic conjunctivitis of both eyes H10.13 and Dysfunction of both eustachian tubes H69.83 [facility] [address] [id number] [address] [place] [address] 07 Dec, 2016 [place] [address] [id number] [address] [place] [address] Dec, Nevus D22.9 [place] [address] [facility] [id number] [address] [place] [address] Nov, Chronic pain due to trauma G 89.21 and Neuroforaminal stenosis of spine M99.89 [place] [address] [id number] [address] [place] [address] Nov, Neuroforaminal stenosis of s pine M99.89 ; Essential hypertension I10 ; Mixed hyperlipidemia E78.2 ; Hypokalemia E87.6 ; Neck pain M54.2 and Nevus D22.9 [place] [address] [id number] [address] [place] [address] Oct, Neuroforaminal stenosis of s pine M99.89 [facility] [address] [id number] [address] [place] [address] Sep, Neuroforaminal stenosis of s pine M99.89 [place] [address] [id number] [address] [place] [address] Sep, [place] [address] [id number] [address] [place] [address] August, [facility] [address] [facility] [id number] [address] [place] [address] August, Neck pain M54.2 and Neurofor aminal stenosis of spine M99.89 [facility] [address] [id number] [address] [place] [address] August, Routine gynecological examin ation Z01.419 and Screening breast examination Z12.39 [facility] [address] [id number] [address] [place] [address] Jul, [facility] [address] [id number] [address] [place] [address] Jul, [facility] [address] [id number] [address] [place] [address] Jul, Neuroforaminal stenosis of s pine M99.89 [facility] [address] [id number] [address] [place] [address] Jul, [facility] [address] [id number] [address] [place] [address] Jul, Neuroforaminal stenosis of l umbar 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 [facility] [address] [id number] [address] [place] [address] Jul, [facility] [address] [id number] [address] [place] [address] Jul, [facility] [address] [id number] [address] [place] [address] Jun, Neuroforaminal stenosis of s pine M99.89 [facility] [address] [id number] [address] [place] [address] Jun, Uterine leiomyoma, unspecifi ed location D25.9 and Allergic reaction caused by a drug, initial encounter T78.40XA [facility] [address] [id number] [address] [place] [address] Jun, [facility] [address] [id number] [address] [place] [address] May, UTI symptoms R39.9 and Pain of right sacroiliac joint M53.3 [place] [address] [id number] [address] [place] [address] May, Neuroforaminal stenosis of s jose M99.89 [place] [address] [id number] [address] [place] [address] May, [place] [address] [facility] [id number] [address] [place] [address] May, Acute mucoid otitis media of left ear H65.112 and Acute non- recurrent maxillary sinusitis J01.00 [place] [address] [facility] [id number] [address] [place] [address] May, Acute bacterial conjunctivit is of both eyes H10.33 ; Left arm pain M79.602 and Hypokalemia E87.6 [place] [address] [facility] [id number] [address] [place] [address] Apr, [place] [address] [id number] [address] [place] [address] Apr, Neuroforaminal stenosis of s pine M99.89 ; Neck pain M54.2 ; Chronic pain due to trauma G89.21 ; Mixed hyperlipidemia E78.2 ; Essential hypertension I10 and Hypokalemia E87.6 [place] [address] [facility] [id number] [address] [place] [address] Mar, Oral candidiasis B37.0 ; Nathaniel roforaminal stenosis of spine M99.89 ; Neck pain M54.2 and Chronic pain due to trauma G89.21 [place] [address] [facility] [id number] [address] [place] [address] Feb, [place] [address] [facility] [id number] [address] [place] [address] Feb, [place] [address] [facility] [id number] [address] [place] [address] Feb, UTI (urinary tract infection ) N39.0 [facility] [address] [id number] [address] [place] [address] 09 Feb, 2016 Dysuria R30.0 [facility] [address] [id number] [address] [place] [address] 08 Feb, 2016 Dysuria R30.0 [facility] [address] [id number] [address] [place] [address] Feb, Neuroforaminal stenosis of s pine M99.89 ; Neck pain M54.2 ; Essential hypertension I10 ; Chronic pain due to trauma G89.21 ; Dysuria R30.0 ; Abnormal MRI, shoulder R93.8 and Acute cystitis without hematuria N30.00 [facility] [address] [id number] [address] [place] [address] Jan, [facility] [address] [id number] [address] [place] [address] Jan, [facility] [address] [id number] [address] [place] [address] Jan, [facility] [address] [id number] [address] [place] [address] Jan, Abnormal MRI R93.8 [facility] [address] [id number] [address] [place] [address] 29 Dec, 2015 [facility] [address] [id number] [address] [place] [address] 15 Dec, 2015 Acute pain of left shoulder M25.512 [facility] [address] [id number] [address] [place] [address] 09 Dec, 2015 [facility] [address] [id number] [address] [place] [address] 08 Dec, 2015 [facility] [address] [id number] [address] [place] [address] 07 Dec, 2015 Acute pain of left shoulder M25.512 [facility] [address] [id number] [address] [place] [address] Nov, [facility] [address] [id number] [address] [place] [address] Nov, Neuroforaminal stenosis of s pine M99.89 ; Neck pain M54.2 ; Abnormal mammogram R92.8 ; Essential hypertension I10 and Chronic pain due to trauma G89.21 [facility] [address] [id number] [address] [place] [address] Nov, [facility] [address] [id number] [address] [place] [address] Oct, Acute stress disorder F43.0 [facility] [address] [id number] [address] [place] [address] Oct, [facility] [address] [id number] [address] [place] [address] Oct, [facility] [address] [id number] [address] [place] [address] Oct, [facility] [address] [id number] [address] [place] [address] Sep, [facility] [address] [id number] [address] [place] [address] August, [facility] [address] [id number] [address] [place] [address] Jul, Neuroforaminal stenosis of s pine M99.89 ; Neck pain M54.2 ; Abnormal mammogram R92.8 and Essential hypertension I10 [facility] [address] [id number] [address] [place] [address] Jul, [facility] [address] [id number] [address] [place] [address] Jul, [facility] [address] [id number] [address] [place] [address] Jul, Abnormal mammogram R92.8 [facility] [address] [id number] [address] [place] [address] 08 Jul, 2015 [facility] [address] [facility] [id number] [address] [place] [address] Jul, UTI (urinary tract infection ) N39.0 [facility] [address] [facility] [id number] [address] [place] [address] Jul, Dysuria R30.0 [facility] [address] [facility] [id number] [address] [place] [id number] Jun, [facility] [address] [facility] [id number] [address] [place] [phone] Jun, [facility] [address] [place] [id number] [address] [place] [phone] Jun, Hypokalemia E87.6 and Hematu martina R31.9 [place] [address] [place] [id number] [address] [place] [id number] Jun, Hypokalemia E87.6 [facility] [address] [facility] [id number] [address] [place] [id number] Jun, [facility] [address] [place] [id number] [address] [place] [id number] Jun, Hypokalemia E87.6 [facility] [address] [place] [id number] [address] [place] [id number] Jun, Hypokalemia E87.6 [facility] [address] [place] [id number] [address] [place] [id number] 15 Jun, 2015 Neuroforaminal stenosis of s pine M99.89 ; Hypokalemia E87.6 ; Neck pain M54.2 ; Essential hypertension I10 ; Mixed hyperlipidemia E78.2 and Screening breast examination Z12.39 [place] [id number] [facility] [id number] [address] [place] [id number] 08 Jun, 2015 Dysuria R30.0 ; UTI (urinary tract infection) N39.0 and Hematuria R31.9 [place] [id number] [facility] [id number] [address] [place] [phone] May, [facility] [address] [place] [id number] [place] [phone] 18 May, 2015 High risk sexual behavior Z7 2.51 ; Hypokalemia E87.6 ; Neuroforaminal stenosis of spine M99.89 ; Neck pain M54.2 ; Essential hypertension I10 ; Mixed hyperlipidemia E78.2 ; STD exposure Z20.2 and Concern about STD in female without diagnosis Z71.1 [facility] [address] [facility] [id number] [address] [place] [phone] 16 May, 2015 Neuroforaminal stenosis of s pine M99.89 ; Neck pain M54.2 ; Hypokalemia E87.6 ; Essential hypertension I10 and Mixed hyperlipidemia E78.2 [facility] [address] [place] [id number] [address] [place] [phone] May, [facility] [address] [facility] [id number] [place] [address] 08 May, 2015 High risk sexual behavior Z7 2.51 ; STD exposure Z20.2 and Concern about STD in female without diagnosis Z71.1 [facility] [address] [facility] [id number] [address] [place] [address] May, [facility] [address] [facility] [id number] [address] [place] [address] Apr, Neuroforaminal stenosis of s pine M99.89 ; Mixed hyperlipidemia E78.2 ; Essential hypertension I10 and Hypokalemia E87.6 [facility] [address] [facility] [id number] [address] [place] [address] Mar, [facility] [address] [facility] [id number] [address] [place] [address] Mar, Hypokalemia E87.6 [facility] [address] [facility] [id number] [address] [place] [address] Mar, Neuroforaminal stenosis of s pine M99.89 ; Mixed hyperlipidemia E78.2 ; Neck pain M54.2 ; Essential hypertension I10 ; Abnormal fasting glucose R73.09 ; Hypokalemia E87.6 and Constipation K59.00 [facility] [address] [facility] [id number] [address] [place] [address] Feb, Neuroforaminal stenosis of s pine M99.89 ; Mixed hyperlipidemia E78.2 ; Neck pain M54.2 ; Essential hypertension I10 ; Abnormal fasting glucose R73.09 ; Hypokalemia E87.6 and Constipation K59.00 [facility] [address] [facility] [id number] [address] [place] [address] Feb, Elevated fasting blood sugar R73.01 [facility] [address] [facility] [id number] [address] [place] [address] Feb, Elevated fasting blood sugar R73.01 [facility] [address] [facility] [id number] [address] [place] [address] Feb, Hair loss L65.9 [facility] [address] [facility] [id number] [address] [place] [address] Feb, Sinusitis J32.9 ; Essential hypertension I10 and Hair loss L65.9 [facility] [address] [facility] [id number] [address] [place] [address] Jan, [facility] [address] [facility] [id number] [address] [place] [address] Jan, Essential hypertension I10 ; Neuroforaminal stenosis of spine M99.89 ; Neck pain M54.2 ; Mixed hyperlipidemia E78.2 and Anxiety F41.9 [facility] [address] [facility] [id number] [address] [place] [address] Jan, [facility] [address] [facility] [id number] [address] [place] [address] Jan, Mixed hyperlipidemia E78.2 ; Essential (primary) hypertension I10 ; Strain of muscle, fascia and tendon at neck level, subsequent encounter S16.1XXD and Tension-type headache, unspecified, not intractable G44.209 [facility] [address] [id number] [address] [place] [address] Dec, Lumbar back pain 724.2 and N euroforaminal stenosis of spine 724.00 [facility] [address] [id number] [address] [place] [address] Nov, [facility] [address] [id number] [address] [place] [address] Nov, Lumbar back pain 724.2 and N euroforaminal stenosis of spine 724.00 [place] [address] [facility] [id number] [address] [place] [address] Nov, Edema 782.3 ; Lumbar back pa in 724.2 ; Essential hypertension, benign 401.1 ; Hyperlipemia 272.4 ; Neuroforaminal stenosis of spine 724.00 and Post-concussion headache 339.20 [facility] [address] [id number] [address] [place] [address] Nov, [facility] [address] [facility] [id number] [address] [place] [address] Nov, [facility] [address] [facility] [id number] [address] [place] [address] Oct, Essential hypertension, sheridan gn 401.1 [facility] [address] [facility] [id number] [address] [place] [address] Oct, Edema 782.3 ; Lumbar back pa in 724.2 ; Essential hypertension, benign 401.1 ; Hyperlipemia 272.4 ; Neuroforaminal stenosis of spine 724.00 and Post-concussion headache 339.20 [facility] [address] [facility] [id number] [address] [place] [address] Oct, [facility] [address] [facility] [id number] [address] [place] [address] Oct, Edema 782.3 [facility] [address] [id number] [address] [place] [address] Oct, Lumbar back pain 724.2 [facility] [address] [id number] [address] [place] [address] Oct, Cervicalgia 723.1 ; Lumbar b ack pain 724.2 and High risk medication use V58.69 [facility] [address] [id number] [address] [place] [address] Sep, [facility] [address] [id number] [address] [place] [address] Sep, Lumbar strain 847.2 [facility] [address] [facility] [id number] [address] [place] [address] August, Edema 782.3 and Eustachian t ube dysfunction 381.81 [facility] [address] [facility] [id number] [address] [place] [address] August, [facility] [address] [id number] [address] [place] [address] August, Eustachian tube dysfunction 381.81 [facility] [address] [id number] [address] [place] [address] Jul, Otalgia 388.70 and Otitis me jonathon 382.9 [facility] [address] [id number] [address] [place] [address] Jul, [facility] [address] [id number] [address] [place] [address] Jul, [facility] [address] [id number] [address] [place] [address] Jul, [facility] [address] [facility] [id number] [address] [place] [address] Jul, [facility] [address] [facility] [id number] [address] [place] [address] Jul, [facility] [address] [id number] [address] [place] [address], [place] [address] Jun, [facility] [address] [id number] [address] [place] [address], [place] [address] 27 Jun, 2014 [facility] [place] [facility] [address] [id number] [address] [place] [address], [place] [address] Jun, [facility] [address] [id number] [address] [place] [address], [place] [address] May, 2014 [facility] [address] [id number] [address] [place] [address], [place] [address] May, 2014 [facility] [address] [id number] [address] [place] [address], [place] [address] May, 2014 [facility] [address] [id number] [address] [place] [address], [place] [address] May, 2014 [facility] [place] [address] [id number] [address] [place] [address], [place] [address] May, 2014 [facility] [address] [id number] [address] [place] [address], [place] [address] May, [facility] [place] [facility] [address] [id number] [address] [place] [address], [place] [address] May, [facility] [address] [id number] [address] [place] [address], [place] [address] May, [facility] [place] [facility] [address] [id number] [address] [place] [address], [place] [address] May, [facility] [place] [address] [id number] [address] [place] [address], [place] [address] May, [facility] [place] [address] [id number] [address] [place] [address], [place] [address] Apr, [facility] [place] [address] [id number] [address] [place] [address], [place] [address] Apr, [facility] [place] [address] [id number] [address] [place] [address] Apr, [facility] [address] [id number] [address] [place] [address], [place] [address] Apr, [facility] [address] [id number] [address] [place] [address], [place] [address] Apr, [facility] [address] [id number] [address] [place] [address], [place] [address] Apr, [facility] [address] [id number] [address] [place] [address], [place] [address] Apr, [facility] [address] [id number] [address] [place] [address], [place] [address] Apr, [facility] [address] [id number] [address] [place] [address], [place] [address] Apr, [facility] [address] [id number] [address] [place] [address], [place] [address] Apr, [facility] [address] [id number] [address] [place] [address], [place] [address] Apr, [facility] [address] [id number] [address] [place] [address], [place] [address] Apr, [facility] [address] [id number] [address] [place] [address], [place] [address] Apr, [facility] [address] [id number] [address] [place] [address], [place] [address] Apr, [facility] [address] [id number] [address] [place] [address], [place] [address] Apr, [facility] [address] [id number] [address] [place] [address], [place] [address] Mar, [facility] [address] [id number] [address] [place] [address], [place] [address] Mar, [facility] [address] [id number] [address] [place] [address], [place] [address] Mar, [facility] [address] [id number] [address] [place] [address], [place] [address] Mar, [facility] [address] [id number] [address] [place] [address], [place] [address] Feb, [facility] [address] [id number] [address] [place] [address], [place] [address] Feb, [facility] [address] [id number] [address] [place] [address], [place] [address] Feb, [facility] [place] [facility] [address] [id number] [address] [place] [address], [place] [address] Feb, [facility] [address] [id number] [address] [place] [address], [place] [address] Jan, [facility] [address] [id number] [address] [place] [address], [place] [address] Jan, [facility] [address] [id number] [address] [place] [address], [place] [address] Jan, [facility] [address] [id number] [address] [place] [address], [place] [address] Jan, [facility] [address] [id number] [address] [place] [address], [place] [address] Jan, [facility] [address] [id number] [address] [place] [address], [place] [address] Jan, [facility] [place] [facility] [address] [id number] [address] [place] [address], [place] [address] Jan, [facility] [address] [id number] [address] [place] [address], [place] [address] Jan, [facility] [place] [facility] [address] [id number] [address] [place] [address], [place] [address] Dec, [facility] [place] [facility] [address] [id number] [address] [place] [address], [place] [address] Dec, [facility] [place] [facility] [address] [id number] [address] [place] [address], [place] [address] Dec, [facility] [place] [facility] [address] [id number] [address] [place] [address], [place] [address] Dec, 2013 [facility] [place] [facility] [address] [id number] [address] [place] [address], [place] [address] Oct, 2013 [facility] [place] [facility] [address] [id number] [address] [place] [address], [place] [address] Oct, 2013 [facility] [place] [facility] [address] [id number] [address] [place] [address], [place] [address] Oct, 2013 [facility] [address] [id number] [address] [place] [address], [place] [address] Oct, 2013 [facility] [place] [facility] [address] [id number] [address] [place] [address], [place] [address] Oct, 2013 [facility] [address] [id number] [address] [place] [address], [place] [address] Oct, 2013 [facility] [address] [id number] [address] [place] [address], [place] [address] Oct, 2013 [facility] [address] [id number] [address] [place] [address], [place] [address] Oct, [facility] [address] [id number] [address] [place] [address], [place] [address] Sep, [facility] [place] [facility] [address] [id number] [address] [place] [address], [place] [address] Sep, [facility] [place] [facility] [address] [id number] [address] [place] [address], [place] [address] Sep, [facility] [place] [facility] [address] [id number] [address] [place] [address], [place] [address] Sep, [facility] [place] [facility] [address] [id number] [address] [place] [address], [place] [address] Sep, [facility] [place] [facility] [address] [id number] [address] [place] [address], [place] [address] Sep, [facility] [place] [facility] [address] [id number] [address] [place] [address], [place] [address] Sep, [facility] [address] [id number] [address] [place] [address], [place] [address] Sep, [facility] [address] [id number] [address] [place] [address], [place] [address] Sep, [facility] [address] [id number] [address] [place] [address], [place] [address] Sep, [facility] [address] [id number] [address] [place] [address], [place] [address] August, [facility] [address] [id number] [address] [place] [address], [place] [address] August, [facility] [address] [id number] [address] [place] [address], [place] [address] August, [facility] [address] [id number] [address] [place] [address], [place] [address] August, [facility] [address] [id number] [address] [place] [address], [place] [address] August, [facility] [address] [id number] [address] [place] [address], [place] [address] August, [facility] [address] [id number] [address] [place] [address], [place] [address] August, [facility] [address] [id number] [address] [place] [address], [place] [address] August, [facility] [address] [id number] [address] [place] [address], [place] [address] August, [facility] [address] [id number] [address] [place] [address], [place] [address] August, [facility] [address] [id number] [address] [place] [address], [place] [address] August, [facility] [address] [id number] [address] [place] [address], [place] [address] August, [facility] [address] [id number] [address] [place] [address], [place] [address] Jul, [facility] [address] [id number] [facility] [place] [address] Jul, [facility] [address] [id number] [address] [place] [address], [place] [address] Jul, [facility] [address] [id number] [address] [place] [address], [place] [address] Jul, [facility] [address] [id number] [address] [place] [address], [place] [address] Jul, [facility] [address] [id number] [address] [place] [address], [place] [address] Jul, [facility] [address] [id number] [address] [place] [address], [place] [address] Jun, [facility] [address] [id number] [address] [place] [address], [place] [address] Jun, [facility] [address] [id number] [address] [place] [address], [place] [address] May, [facility] [address] [id number] [address] [place] [address], [place] [address] May, [facility] [address] [id number] [address] [place] [address], [place] [address] Apr, [facility] [address] [id number] [address] [place] [address], [place] [address] Apr, [facility] [address] [id number] [address] [place] [address], [place] [address] Apr, [facility] [place] [facility] [address] [id number] [address] [place] [address], [place] [address] Apr, [facility] [address] [id number] [address] [place] [address], [place] [address] Apr, [facility] [address] [id number] [address] [place] [address] [address] Apr, [facility] [address] [id number] [address] [place] [address], [place] [address] Apr, [facility] [address] [id number] [address] [place] [address], [place] [address] Apr, [facility] [address] [id number] [address] [place] [address], [place] [address] Apr, [facility] [address] [id number] [address] [place] [address], [place] [address] Apr, [facility] [address] [id number] [address] [place] [address], [place] [address] Apr, [facility] [address] [id number] [address] [place] [address], [place] [address] Apr, [facility] [address] [id number] [address] [place] [address], [place] [address] Apr, [facility] [address] [id number] [address] [place] [address], [place] [address] Mar, [facility] [address] [id number] [address] [place] [address], [place] [address] Mar, [facility] [address] [id number] [address] [place] [address], [place] [address] Mar, [facility] [address] [id number] [address] [place] [address], [place] [address] Mar, [facility] [address] [id number] [address] [place] [address] Feb, [facility] [address] [id number] [address] [place] [address], [place] [address] Feb, [facility] [address] [id number] [address] [place] [address], [place] [address] Feb, [facility] [address] [id number] [address] [place] [address], [place] [address] Feb, [facility] [address] [id number] [address] [place] [address], [place] [address] 14 Jan, 2013 [facility] [address] [id number] [address] [place] [address], [place] [address] 14 Jan, 2013 [facility] [address] [id number] [address] [place] [address], [place] [address] 11 Jan, 2013 [facility] [address] [id number] [address] [place] [address], [place] [address] 11 Jan, 2013 [facility] [address] [id number] [address] [place] [address], [place] [address] 10 Jan, 2012 [facility] [address] [id number] [address] [place] [address], [place] [address] 10 Jan, 2013 [facility] [address] [id number] [address] [place] [address], [place] [address] 09 Jan, 2013 [facility] [address] [id number] [address] [place] [address], [place] [address] 09 Jan, 2013 [facility] [address] [id number] [address] [place] [address], [place] [address] Jan, [facility] [address] [id number] [address] [place] [address], [place] [address] 26 Dec, 2012 [facility] [address] [id number] [address] [place] [address], [place] [address] 16 Dec, 2012 [facility] [address] [id number] [address] [place] [address], [place] [address] 16 Dec, 2012 [facility] [address] [id number] [address] [place] [address], [place] [address] 13 Dec, 2012 [facility] [address] [id number] [address] [place] [address], [place] [address] 17 Nov, 2012 [facility] [address] [id number] [address] [place] [address], [place] [address] 17 Nov, 2012 [facility] [address] [id number] [address] [place] [address], [place] [address] Nov, [facility] [address] [id number] [address] [place] [address], [place] [address] Nov, [facility] [address] [id number] [address] [place] [address], [place] [address] Oct, [facility] [address] [id number] [address] [place] [address], [place] [address] Sep, [facility] [address] [id number] [address] [place] [address], [place] [address] August, [facility] [address] [id number] [address] [place] [address], [place] [address] August, [facility] [address] [id number] [address] [place] [address], [place] [address] August, [facility] [address] [id number] [address] [place] [address], [place] [address] August, [facility] [address] [id number] [address] [place] [address], [place] [address] August, [facility] [address] [id number] [address] [place] [address], [place] [address] August, [facility] [address] [id number] [address] [place] [address], [place] [address] August, [facility] [address] [id number] [address] [place] [address], [place] [address] August, [facility] [address] [id number] [address] [place] [address], [place] [address] August, [facility] [address] [id number] [address] [place] [address], [place] [address] August, [facility] [address] [id number] [address] [place] [address], [place] [address] August, [facility] [address] [id number] [address] [place] [address], [place] [address] August, [facility] [address] [id number] [address] [place] [address], [place] [address] Jul, [facility] [address] [id number] [address] [place] [address], [place] [address] Jul, [facility] [address] [id number] [address] [place] [address], [place] [address] Jul, [facility] [address] [id number] [address] [place] [address], [place] [address] Jul, [facility] [address] [id number] [address] [place] [address], [place] [address] Jul, [facility] [address] [id number] [address] [place] [address], [place] [address] Jul, [facility] [address] [id number] [address] [place] [address], [place] [address] Jul, [facility] [address] [id number] [address] [place] [address], [place] [address] Jul, [facility] [address] [id number] [address] [place] [address], [place] [address] Jul, [facility] [address] [id number] [address] [place] [address], [place] [address] Jul, [facility] [address] [id number] [address] [place] [address], [place] [address] Jul, [facility] [address] [id number] [address] [place] [address], [place] [address] Jun, [facility] [address] [id number] [address] [place] [address], [place] [address] Jun, [facility] [address] [id number] [address] [place] [address], [place] [address] Jun, [facility] [address] [id number] [address] [place] [address], [place] [address] Jun, [facility] [address] [id number] [address] [place] [address], [place] [address] May, [facility] [place] [facility] [address] [id number] [address] [place] [address], [place] [address] 14 May, 2012 [facility] [address] [id number] [address] [place] [address], [place] [address] 05 May, 2012 [facility] [address] [id number] [address] [place] [address], [place] [address] 04 May, 2012 [facility] [address] [id number] [address] [place] [address], [place] [address] 04 May, 2012 [facility] [address] [id number] [address] [place] [address], [place] [address] May, [facility] [address] [id number] [address] [place] [address], [place] [address] Apr, [facility] [address] [id number] [address] [place] [address], [place] [address] Apr, [facility] [address] [id number] [address] [place] [address], [place] [address] 30 Apr, 2012 [facility] [address] [id number] [address] [place] [address], [place] [address] Apr, [facility] [address] [id number] [address] [place] [address], [place] [address] 15 Mar, 2012 [facility] [address] [id number] [address] [place] [address], [place] [address] 14 Mar, 2012 [facility] [address] [id number] [address] [place] [address], [place] [address] 14 Mar, 2012 [facility] [address] [id number] [address] [place] [address], [place] [address] 14 Mar, 2012 [facility] [address] [id number] [address] [place] [address], [place] [address] 14 Mar, 2012 [facility] [address] [id number] [address] [place] [address], [place] [address] 06 Mar, 2012 [facility] [address] [id number] [address] [place] [address], [place] [address] Mar, [facility] [place] [facility] [address] [id number] [address] [place] [address], [place] [address] Feb, [facility] [place] [facility] [address] [id number] [address] [place] [address], [place] [address] Feb, [facility] [place] [facility] [address] [id number] [address] [place] [address], [place] [address] Feb, [facility] [place] [facility] [address] [id number] [address] [place] [address], [place] [address] Feb, [facility] [address] [id number] [address] [place] [address], [place] [address] Jan, [facility] [place] [facility] [address] [id number] [address] [place] [address], [place] [address] Jan, [facility] [place] [facility] [address] [id number] [address] [place] [address], [place] [address] Jan, [facility] [place] [facility] [address] [id number] [address] [place] [address], [place] [address] Jan, [facility] [place] [facility] [address] [id number] [address] [place] [address], [place] [address] Jan, [facility] [place] [facility] [address] [id number] [address] [place] [address], [place] [address] Jan, [facility] [place] [facility] [address] [id number] [address] [place] [address], [place] [address] Dec, [facility] [place] [facility] [address] [id number] [address] [place] [address] Dec, [facility] [place] [facility] [address] [id number] [address] [place] [address], [place] [address] Nov, [facility] [place] [facility] [address] [id number] [address] [place] [address], [place] [address] Sep, [facility] [place] [facility] [address] [id number] [address] [place] [address], [place] [address] August, [facility] [place] [facility] [address] [id number] [address] [place] [address], [place] [address] August, [facility] [address] [id number] [address] [place] [address], [place] [address] August, [facility] [address] [id number] [address] [place] [address], [place] [address] August, [facility] [address] [id number] [address] [place] [address], [place] [address] August, [facility] [address] [id number] [address] [place] [address], [place] [address] Jun, [facility] [address] [id number] [address] [place] [address], [place] [address] Jun, [facility] [address] [id number] [address] [place] [address], [place] [address] Apr, [facility] [address] [id number] [address] [place] [address], [place] [address] Apr, [facility] [address] [id number] [address] [place] [address], [place] [address] Mar, [facility] [address] [id number] [address] [place] [address], [place] [address] 22 Feb, 2011 [facility] [address] [id number] [address] [place] [address], [place] [address] 14 Feb, 2011 [facility] [address] [id number] [address] [place] [address], [place] [address] 14 Feb, 2011 [facility] [address] [id number] [address] [place] [address], [place] [address] 17 Jan, 2011 [facility] [address] [id number] [address] [place] [address], [place] [address] 15 Jan, 2011 [facility] [address] [id number] [address] [place] [address], [place] [address] 15 Jan, 2011 [facility] [address] [id number] [address] [place] [address], [place] [address] 14 Jan, 2011 [facility] [address] [facility] [id number] [address] [place] [address] 15 May, 2010 [facility] [address] [facility] [id number] [address] [place] [address] Mar, [facility] [address] [facility] [id number] [address] [place] [address] Oct, [facility] [address] [facility] [id number] [address] [place] [address] Sep, [facility] [address] [facility] [id number] [address] [place] [address] Mar, [facility] [address] [facility] [id number] [address] [place] [address] Jan, [facility] [address] [facility] [id number] [address] [place] [address] Jan, [facility] [address] [facility] [id number] [address] [place] [address] May, IMMUNIZATIONS No Known Immunizations SOCIAL HISTORY Never Assessed REASON FOR VISIT EMR-[facility] PLAN OF CARE VITAL SIGNS MEDICATIONS Unknown Medications RESULTS No Results PROCEDURES No Known procedures INSTRUCTIONS MEDICATIONS ADMINISTERED No Known Medications MEDICAL (GENERAL) HISTORY Type Description Date Medical History hypertension Medical History Colposcopy with loop electro de excision of the cervix was performed 06/2012, mild squamous atypia (no definite dyplasia). Performed at [facility] Dr. Joy. Medical History Acute suppurative otitis [...]
--- OUTSIDE RECORDS SUMMARY | 2019-11-23 06:05 | XMS REPORT ---
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 Role Phone Migration, Doctor Unavailable Unavailable PROBLEMS Type Condition ICD9-CM Code [id number] Code Onset Dates Condition S tatus SNOMED Code Problem Hematuria, unspecified type R31.9 Ac tive 82760292 Problem Abnormal renal ultrasound R93.429 Acti ve [id number] Problem Anxiety F41.9 Active 84602759 Problem Hypokalemia E87.6 Active 05804572 Problem Abnormal glucose R73.09 Active 102 252255 Problem Chronic pain due to trauma G89.21 Act juanis 305689021 Problem Neuroforaminal stenosis of spine M99.89 Active 575598981792 Problem Neck pain M54.2 Active 79562252 Problem Essential hypertension I10 Active 20755071 Problem Mixed hyperlipidemia E78.2 Active 96068383 ALLERGIES No Information ENCOUNTERS Encounter Location Date Diagnosis [place] [id number] [facility] [id number] [address] [place] [phone] May, Neuroforaminal stenosis of s pine M99.89 [place] [address] [facility] [id number] [address] [place] [phone] May, [facility] [address] [facility] [id number] [address] [place] [phone] May, Congestion of nasal sinus R0 9.81 [facility] [address] [facility] [id number] [address] [place] [phone] May, [facility] [address] [facility] [id number] [address] [place] [phone] Apr, Neuroforaminal stenosis of s pine M99.89 [facility] [address] [facility] [id number] [address] [place] [phone] Apr, Neuroforaminal stenosis of s pine M99.89 and Chronic pain due to trauma G89.21 [facility] [address] [id number] [address] [place] [phone] Mar, UTI (urinary tract infection ) N39.0 [facility] [address] [id number] [address] [place] [phone] Mar, Vertigo R42 [facility] [address] [id number] [address] [place] [id number] Mar, Neuroforaminal stenosis of s jose M99.89 [facility] [address] [id number] [address] [place] [phone] Feb, Extensor tendon disruption M 67.89 [facility] [address] [id number] [address] [place] [phone] Feb, Neuroforaminal stenosis of ayla garcia M99.89 and High risk medication use Z79.899 [facility] [address] [id number] [address] [place] [phone] Jan, Hypokalemia E87.6 [facility] [address] [id number] [address] [place] [phone] Jan, Flank pain R10.9 and Acute r ight-sided low back pain without sciatica M54.5 [facility] [address] [id number] [address] [place] [phone] Jan, Hypokalemia E87.6 [facility] [address] [id number] [address] [place] [phone] Jan, [facility] [address] [id number] [address] [place] [phone] Jan, URI, acute J06.9 [facility] [address] [id number] [address] [place] [phone] Jan, Neuroforaminal stenosis of ayla garcia M99.89 [facility] [address] [id number] [address] [place] [id number] 13 Dec, 2017 Lateral epicondylitis, right elbow M77.11 [place] [address] [id number] 11 Dec, 2017 Allergic rhinitis due to monica rosalina, unspecified seasonality J30.1 and Allergic conjunctivitis of both eyes H10.13 [place] [address] [id number] 10 Dec, 2017 Neuroforaminal stenosis of s pine M99.89 [place] [address] [id number] 06 Dec, 2017 Mixed hyperlipidemia E78.2 [place] [address] [address] 05 Dec, 2017 Abnormal glucose R73.09 ; Ab normal renal ultrasound R93.429 ; Dysuria R30.0 ; Cystitis without hematuria N30.90 ; Hypokalemia E87.6 ; Mixed hyperlipidemia E78.2 and Hematuria, unspecified type R31.9 [place] [address] [phone] Nov, Hypokalemia E87.6 ; Mixed hy perlipidemia E78.2 and Hematuria, unspecified type R31.9 [place] [address] [phone] Nov, [place] [address] [id number] Nov, Hypokalemia E87.6 [place] [address] [address] Nov, [place] [address] [address] Nov, Abnormal renal ultrasound R9 3.429 [place] [address] [address] Nov, Abnormal renal ultrasound R9 3.429 [place] [address] [id number] [address] [place] [id number] 09 Nov, 2017 Hematuria, unspecified type R31.9 and Neuroforaminal stenosis of spine M99.89 [facility] [address] [id number] [address] [place] [phone] Nov, Dysuria R30.0 [place] [address] [id number] [address] [place] [id number] Oct, Lateral epicondylitis, right elbow M77.11 [place] [address] [id number] [address] [place] [id number] Oct, Neuroforaminal stenosis of s jose M99.89 ; Visit for TB skin test Z11.1 and Essential hypertension I10 [place] [address] [id number] [address] [place] [phone] Oct, [place] [address] [id number] [address] [place] [phone] Oct, Neuroforaminal stenosis of s pine M99.89 [place] [address] [id number] [address] [place] [phone] Oct, Visit for TB skin test Z11.1 [place] [address] [id number] [address] [place] [id number] 05 Oct, 2017 Cystitis without hematuria N 30.90 [place] [address] [id number] [address] [place] [phone] Sep, Screening breast examination Z12.39 [place] [address] [id number] [address] [place] [phone] Sep, Dysuria R30.0 and Cystitis w ithout hematuria N30.90 [place] [address] [id number] [address] [place] [phone] 14 Sep, 2017 Essential hypertension I10 a nd Neuroforaminal stenosis of spine M99.89 [place] [address] [id number] [address] [place] [phone] Sep, Abnormal glucose R73.09 [place] [address] [id number] [address] [place] [id number] August, Lateral epicondylitis, right elbow M77.11 [place] [address] [id number] [address] [place] [phone] August, Screen for STD (sexually tra nsmitted disease) Z11.3 [place] [address] [id number] [address] [place] [phone] August, Neuroforaminal stenosis of s jose M99.89 ; Mixed hyperlipidemia E78.2 ; Elevated fasting glucose R73.01 ; Screening mammogram, encounter for Z12.31 and Encounter for well woman exam without gynecological exam Z00.00 [place] [address] [id number] [address] [place] [id number] August, Neuroforaminal stenosis of s pine M99.89 [place] [address] [id number] [address] [place] [id number] August, Essential hypertension I10 ; Hypokalemia E87.6 and Mixed hyperlipidemia E78.2 [place] [address] [id number] [address] [place] [id number] Jul, [place] [address] [id number] [address] [place] [phone] Jul, Neuroforaminal stenosis of s pine M99.89 [place] [address] [id number] [address] [place] [phone] Jul, Lateral epicondylitis, right elbow M77.11 [place] [address] [id number] [address] [place] [id number] Jul, [place] [address] [id number] [address] [place] [phone] Jun, High ankle sprain of right l ower extremity, initial encounter S93.431A [place] [address] [id number] [address] [place] [phone] Jun, Essential hypertension I10 [facility] [address] [id number] [address] [place] [phone] Jun, [facility] [address] [id number] [address] [place] [phone] Jun, [facility] [address] [id number] [address] [place] [id number] Jun, Neuroforaminal stenosis of s pine M99.89 [facility] [address] [id number] [address] [place] [phone] Jun, Pain of right upper extremit y M79.601 and Essential hypertension I10 [place] [address] [id number] [address] [place] [id number] Jun, [place] [address] [facility] [id number] [address] [place] [id number] Jun, Dysuria R30.0 ; Acute cystit is with hematuria N30.01 and Screen for STD (sexually transmitted disease) Z11.3 [place] [address] [id number] [address] [place] [phone] May, Chronic pain due to trauma G 89.21 [place] [address] [id number] [address] [place] [phone] May, Essential hypertension I10 [facility] [address] [id number] [address] [place] [phone] May, Neuroforaminal stenosis of s pine M99.89 [facility] [address] [id number] [address] [place] [id number] Apr, Allergic reaction, initial e ncounter T78.40XA [facility] [address] [id number] [address] [place] [phone] Apr, Low back pain, unspecified b ack pain laterality, unspecified chronicity, with sciatica presence unspecified M54.5 ; Acute cystitis with hematuria N30.01 ; Neuroforaminal stenosis of spine M99.89 ; Bilateral acute serous otitis media, recurrence not specified H65.03 ; Mixed hyperlipidemia E78.2 ; Essential hypertension I10 ; Immunization counseling Z71.89 and Encounter for immunization Z23 [facility] [address] [id number] [address] [place] [id number] 08 Apr, 2017 Neck pain M54.2 [facility] [address] [id number] [address] [place] [id number] 26 Mar, 2017 Neuroforaminal stenosis of s pine M99.89 [place] [address] [id number] [address] [place] [phone] Mar, Pharyngitis due to other org anism J02.8 [facility] [address] [id number] [address] [place] [phone] Feb, Neuroforaminal stenosis of s pine M99.89 [facility] [address] [id number] [address] [place] [id number] 08 Feb, 2017 UTI (urinary tract infection ) N39.0 [facility] [address] [id number] [address] [place] [id number] 07 Feb, 2017 Recent urinary tract infecti on Z87.440 ; Neuroforaminal stenosis of spine M99.89 ; Neck pain M54.2 ; Chronic pain due to trauma G89.21 and Recurrent UTI N39.0 [facility] [address] [id number] [address] [place] [id number] 03 Feb, 2017 [facility] [address] [id number] [address] [place] [phone] Jan, Neuroforaminal stenosis of s pine M99.89 [facility] [address] [id number] [address] [place] [id number] 28 Dec, 2016 Neuroforaminal stenosis of s pine M99.89 [facility] [address] [id number] [address] [place] [id number] 18 Dec, 2016 Acute seasonal allergic rhin itis due to pollen J30.1 [facility] [address] [id number] [address] [place] [id number] 08 Dec, 2016 [facility] [address] [id number] [address] [place] [phone] 08 Dec, 2016 Acute seasonal allergic rhin itis, unspecified trigger J30.2 ; Allergic conjunctivitis of both eyes H10.13 and Dysfunction of both eustachian tubes H69.83 [facility] [address] [id number] [address] [place] [id number] 07 Dec, 2016 [place] [address] [id number] [address] [place] [phone] Dec, Nevus D22.9 [place] [address] [facility] [id number] [address] [place] [phone] Nov, Chronic pain due to trauma G 89.21 and Neuroforaminal stenosis of spine M99.89 [place] [address] [id number] [address] [place] [phone] Nov, Neuroforaminal stenosis of s pine M99.89 ; Essential hypertension I10 ; Mixed hyperlipidemia E78.2 ; Hypokalemia E87.6 ; Neck pain M54.2 and Nevus D22.9 [place] [address] [id number] [address] [place] [id number] Oct, Neuroforaminal stenosis of s pine M99.89 [facility] [address] [id number] [address] [place] [phone] Sep, Neuroforaminal stenosis of s pine M99.89 [place] [address] [id number] [address] [place] [id number] Sep, [place] [address] [id number] [address] [place] [phone] August, [facility] [address] [facility] [id number] [address] [place] [id number] August, Neck pain M54.2 and Neurofor aminal stenosis of spine M99.89 [facility] [address] [id number] [address] [place] [phone] August, Routine gynecological examin ation Z01.419 and Screening breast examination Z12.39 [facility] [address] [id number] [address] [place] [id number] Jul, [facility] [address] [id number] [address] [place] [phone] Jul, [facility] [address] [id number] [address] [place] [id number] Jul, Neuroforaminal stenosis of s pine M99.89 [facility] [address] [id number] [address] [place] [phone] Jul, [facility] [address] [id number] [address] [place] [phone] Jul, Neuroforaminal stenosis of l umbar 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 [facility] [address] [id number] [address] [place] [phone] Jul, [facility] [address] [id number] [address] [place] [phone] Jul, [facility] [address] [id number] [address] [place] [id number] Jun, Neuroforaminal stenosis of s pine M99.89 [facility] [address] [id number] [address] [place] [id number] Jun, Uterine leiomyoma, unspecifi ed location D25.9 and Allergic reaction caused by a drug, initial encounter T78.40XA [facility] [address] [id number] [address] [place] [phone] Jun, [facility] [address] [id number] [address] [place] [phone] May, UTI symptoms R39.9 and Pain of right sacroiliac joint M53.3 [place] [address] [id number] [address] [place] [phone] May, Neuroforaminal stenosis of s jose M99.89 [place] [address] [id number] [address] [place] [address] May, [place] [address] [facility] [id number] [address] [place] [id number] May, Acute mucoid otitis media of left ear H65.112 and Acute non- recurrent maxillary sinusitis J01.00 [place] [address] [facility] [id number] [address] [place] [phone] May, Acute bacterial conjunctivit is of both eyes H10.33 ; Left arm pain M79.602 and Hypokalemia E87.6 [place] [address] [facility] [id number] [address] [place] [phone] Apr, [place] [address] [id number] [address] [place] [phone] Apr, Neuroforaminal stenosis of s pine M99.89 ; Neck pain M54.2 ; Chronic pain due to trauma G89.21 ; Mixed hyperlipidemia E78.2 ; Essential hypertension I10 and Hypokalemia E87.6 [place] [address] [facility] [id number] [address] [place] [id number] Mar, Oral candidiasis B37.0 ; Nathaniel roforaminal stenosis of spine M99.89 ; Neck pain M54.2 and Chronic pain due to trauma G89.21 [place] [address] [facility] [id number] [address] [place] [id number] Feb, [place] [address] [facility] [id number] [address] [place] [phone] Feb, [place] [address] [facility] [id number] [address] [place] [phone] Feb, UTI (urinary tract infection ) N39.0 [facility] [address] [id number] [address] [place] [phone] 09 Feb, 2016 Dysuria R30.0 [facility] [address] [id number] [address] [place] [id number] 08 Feb, 2016 Dysuria R30.0 [facility] [address] [id number] [address] [place] [phone] Feb, Neuroforaminal stenosis of s pine M99.89 ; Neck pain M54.2 ; Essential hypertension I10 ; Chronic pain due to trauma G89.21 ; Dysuria R30.0 ; Abnormal MRI, shoulder R93.8 and Acute cystitis without hematuria N30.00 [facility] [address] [id number] [address] [place] [phone] Jan, [facility] [address] [id number] [address] [place] [phone] Jan, [facility] [address] [id number] [address] [place] [phone] Jan, [facility] [address] [id number] [address] [place] [phone] Jan, Abnormal MRI R93.8 [facility] [address] [id number] [address] [place] [phone] 29 Dec, 2015 [facility] [address] [id number] [address] [place] [phone] 15 Dec, 2015 Acute pain of left shoulder M25.512 [facility] [address] [id number] [address] [place] [phone] 09 Dec, 2015 [facility] [address] [id number] [address] [place] [id number] 08 Dec, 2015 [facility] [address] [id number] [address] [place] [id number] 07 Dec, 2015 Acute pain of left shoulder M25.512 [facility] [address] [id number] [address] [place] [phone] Nov, [facility] [address] [id number] [address] [place] [phone] Nov, Neuroforaminal stenosis of s pine M99.89 ; Neck pain M54.2 ; Abnormal mammogram R92.8 ; Essential hypertension I10 and Chronic pain due to trauma G89.21 [facility] [address] [id number] [address] [place] [phone] Nov, [facility] [address] [id number] [address] [place] [phone] Oct, Acute stress disorder F43.0 [facility] [address] [id number] [address] [place] [phone] Oct, [facility] [address] [id number] [address] [place] [phone] Oct, [facility] [address] [id number] [address] [place] [phone] Oct, [facility] [address] [id number] [address] [place] [phone] Sep, [facility] [address] [id number] [address] [place] [id number] August, [facility] [address] [id number] [address] [place] [id number] Jul, Neuroforaminal stenosis of s pine M99.89 ; Neck pain M54.2 ; Abnormal mammogram R92.8 and Essential hypertension I10 [facility] [address] [id number] [address] [place] [phone] Jul, [facility] [address] [id number] [address] [place] [phone] Jul, [facility] [address] [id number] [address] [place] [phone] Jul, Abnormal mammogram R92.8 [facility] [address] [id number] [address] [place] [phone] 08 Jul, 2015 [facility] [address] [facility] [id number] [address] [place] [phone] Jul, UTI (urinary tract infection ) N39.0 [facility] [address] [facility] [id number] [address] [place] [phone] Jul, Dysuria R30.0 [facility] [address] [facility] [id number] [address] [place] [phone] Jun, [facility] [address] [facility] [id number] [address] [place] [phone] Jun, [facility] [address] [place] [id number] [address] [place] [phone] Jun, Hypokalemia E87.6 and Hematu martina R31.9 [place] [address] [place] [id number] [address] [place] [phone] Jun, Hypokalemia E87.6 [facility] [address] [facility] [id number] [address] [place] [phone] Jun, [facility] [address] [place] [id number] [address] [place] [phone] Jun, Hypokalemia E87.6 [facility] [address] [place] [id number] [address] [place] [phone] Jun, Hypokalemia E87.6 [facility] [address] [place] [id number] [address] [place] [phone] 15 Jun, 2015 Neuroforaminal stenosis of s pine M99.89 ; Hypokalemia E87.6 ; Neck pain M54.2 ; Essential hypertension I10 ; Mixed hyperlipidemia E78.2 and Screening breast examination Z12.39 [place] [id number] [facility] [id number] [address] [place] [phone] 08 Jun, 2015 Dysuria R30.0 ; UTI (urinary tract infection) N39.0 and Hematuria R31.9 [place] [id number] [facility] [id number] [address] [place] [phone] May, [facility] [address] [place] [id number] [place] [phone] 18 May, 2015 High risk sexual behavior Z7 2.51 ; Hypokalemia E87.6 ; Neuroforaminal stenosis of spine M99.89 ; Neck pain M54.2 ; Essential hypertension I10 ; Mixed hyperlipidemia E78.2 ; STD exposure Z20.2 and Concern about STD in female without diagnosis Z71.1 [facility] [address] [facility] [id number] [address] [place] [phone] 16 May, 2015 Neuroforaminal stenosis of s pine M99.89 ; Neck pain M54.2 ; Hypokalemia E87.6 ; Essential hypertension I10 and Mixed hyperlipidemia E78.2 [facility] [address] [place] [id number] [address] [place] [phone] May, [facility] [address] [facility] [id number] [address] [place] [address] 08 May, 2015 High risk sexual behavior Z7 2.51 ; STD exposure Z20.2 and Concern about STD in female without diagnosis Z71.1 [facility] [address] [facility] [id number] [address] [place] [address] May, [facility] [address] [facility] [id number] [address] [place] [address] Apr, Neuroforaminal stenosis of s pine M99.89 ; Mixed hyperlipidemia E78.2 ; Essential hypertension I10 and Hypokalemia E87.6 [facility] [address] [facility] [id number] [address] [place] [address] Mar, [facility] [address] [facility] [id number] [address] [place] [address] Mar, Hypokalemia E87.6 [facility] [address] [facility] [id number] [address] [place] [address] Mar, Neuroforaminal stenosis of s pine M99.89 ; Mixed hyperlipidemia E78.2 ; Neck pain M54.2 ; Essential hypertension I10 ; Abnormal fasting glucose R73.09 ; Hypokalemia E87.6 and Constipation K59.00 [facility] [address] [facility] [id number] [address] [place] [address] Feb, Neuroforaminal stenosis of s pine M99.89 ; Mixed hyperlipidemia E78.2 ; Neck pain M54.2 ; Essential hypertension I10 ; Abnormal fasting glucose R73.09 ; Hypokalemia E87.6 and Constipation K59.00 [facility] [address] [facility] [id number] [address] [place] [address] Feb, Elevated fasting blood sugar R73.01 [facility] [address] [facility] [id number] [address] [place] [address] Feb, Elevated fasting blood sugar R73.01 [facility] [address] [facility] [id number] [address] [place] [address] Feb, Hair loss L65.9 [facility] [address] [facility] [id number] [address] [place] [address] Feb, Sinusitis J32.9 ; Essential hypertension I10 and Hair loss L65.9 [facility] [address] [facility] [id number] [address] [place] [address] Jan, [facility] [address] [facility] [id number] [address] [place] [address] Jan, Essential hypertension I10 ; Neuroforaminal stenosis of spine M99.89 ; Neck pain M54.2 ; Mixed hyperlipidemia E78.2 and Anxiety F41.9 [facility] [address] [facility] [id number] [address] [place] [address] Jan, [facility] [address] [facility] [id number] [address] [place] [address] Jan, Mixed hyperlipidemia E78.2 ; Essential (primary) hypertension I10 ; Strain of muscle, fascia and tendon at neck level, subsequent encounter S16.1XXD and Tension-type headache, unspecified, not intractable G44.209 [facility] [address] [id number] [address] [place] [id number] Dec, Lumbar back pain 724.2 and N euroforaminal stenosis of spine 724.00 [facility] [address] [id number] [address] [place] [address] Nov, [facility] [address] [id number] [address] [place] [address] Nov, Lumbar back pain 724.2 and N euroforaminal stenosis of spine 724.00 [facility] [address] [facility] [id number] [address] [place] [address] Nov, Edema 782.3 ; Lumbar back pa in 724.2 ; Essential hypertension, benign 401.1 ; Hyperlipemia 272.4 ; Neuroforaminal stenosis of spine 724.00 and Post-concussion headache 339.20 [facility] [address] [id number] [address] [place] [address] Nov, [facility] [address] [facility] [id number] [address] [place] [address] Nov, [facility] [address] [facility] [id number] [address] [place] [phone] Oct, Essential hypertension, sheridan gn 401.1 [facility] [address] [facility] [id number] [address] [place] [address] Oct, Edema 782.3 ; Lumbar back pa in 724.2 ; Essential hypertension, benign 401.1 ; Hyperlipemia 272.4 ; Neuroforaminal stenosis of spine 724.00 and Post-concussion headache 339.20 [facility] [address] [facility] [id number] [address] [place] [phone] Oct, [facility] [address] [facility] [id number] [address] [place] [id number] Oct, Edema 782.3 [facility] [address] [id number] [address] [place] [id number] Oct, Lumbar back pain 724.2 [facility] [address] [id number] [address] [place] [id number] Oct, Cervicalgia 723.1 ; Lumbar b ack pain 724.2 and High risk medication use V58.69 [facility] [address] [id number] [address] [place] [phone] Sep, [facility] [address] [id number] [address] [place] [address] Sep, Lumbar strain 847.2 [facility] [address] [facility] [id number] [address] [place] [address] August, Edema 782.3 and Eustachian t ube dysfunction 381.81 [facility] [address] [facility] [id number] [address] [place] [address] August, [facility] [address] [id number] [address] [place] [address] August, Eustachian tube dysfunction 381.81 [facility] [address] [id number] [address] [place] [phone] Jul, Otalgia 388.70 and Otitis me jonathon 382.9 [facility] [address] [id number] [address] [place] [phone] Jul, [facility] [address] [id number] [address] [place] [phone] Jul, [facility] [address] [id number] [address] [place] [id number] Jul, [facility] [address] [facility] [id number] [address] [place] [id number] Jul, [facility] [address] [facility] [id number] [address] [place] [id number] Jul, [facility] [address] [id number] [address] [place] [address], [place] [address] Jun, [facility] [address] [id number] [address] [place] [address], [place] [address] 27 Jun, 2014 [facility] [address] [id number] [address] [place] [address], [place] [address] Jun, [facility] [address] [id number] [address] [place] [address], [place] [address] May, 2014 [facility] [address] [id number] [address] [place] [address], [place] [address] May, 2014 [facility] [address] [id number] [address] [place] [address], [place] [address] May, 2014 [facility] [address] [id number] [address] [place] [address], [place] [address] May, 2014 [facility] [address] [id number] [address] [place] [address], [place] [address] May, 2014 [facility] [address] [id number] [address] [place] [address], [place] [address] May, [facility] [address] [id number] [address] [place] [address], [place] [address] May, [facility] [address] [id number] [address] [place] [address], [place] [address] May, [facility] [address] [id number] [address] [place] [address], [place] [address] May, [facility] [address] [id number] [address] [place] [address], [place] [address] May, [facility] [address] [id number] [address] [place] [address], [place] [address] Apr, [facility] [address] [id number] [address] [place] [address], [place] [address] Apr, [facility] [address] [id number] [address] [place] [phone] Apr, [facility] [address] [id number] [address] [place] [address], [place] [address] Apr, [facility] [address] [id number] [address] [place] [address], [place] [address] Apr, [facility] [address] [id number] [address] [place] [address], [place] [address] Apr, [facility] [address] [id number] [address] [place] [address], [place] [address] Apr, [facility] [address] [id number] [address] [place] [address], [place] [address] Apr, [facility] [address] [id number] [address] [place] [address], [place] [address] Apr, [facility] [address] [id number] [address] [place] [address], [place] [address] Apr, [facility] [address] [id number] [address] [place] [address], [place] [address] Apr, [facility] [address] [id number] [address] [place] [address], [place] [address] Apr, [facility] [address] [id number] [address] [place] [address], [place] [address] Apr, [facility] [address] [id number] [address] [place] [address], [place] [address] Apr, [facility] [address] [id number] [address] [place] [address], [place] [address] Apr, [facility] [address] [id number] [address] [place] [address], [place] [address] Mar, [facility] [address] [id number] [address] [place] [address], [place] [address] Mar, [facility] [address] [id number] [address] [place] [address], [place] [address] Mar, [facility] [address] [id number] [address] [place] [address], [place] [address] Mar, [facility] [address] [id number] [address] [place] [address], [place] [address] Feb, [facility] [address] [id number] [address] [place] [address], [place] [address] Feb, [facility] [address] [id number] [address] [place] [address], [place] [address] Feb, [facility] [address] [id number] [address] [place] [address], [place] [address] Feb, [facility] [address] [id number] [address] [place] [address], [place] [address] Jan, [facility] [address] [id number] [address] [place] [address], [place] [address] Jan, [facility] [address] [id number] [address] [place] [address], [place] [address] Jan, [facility] [address] [id number] [address] [place] [address], [place] [address] Jan, [facility] [address] [id number] [address] [place] [address], [place] [address] Jan, [facility] [address] [id number] [address] [place] [address], [place] [address] Jan, [facility] [address] [id number] [address] [place] [address], [place] [address] Jan, [facility] [address] [id number] [address] [place] [address], [place] [address] Jan, [facility] [address] [id number] [address] [place] [address], [place] [address] Dec, [facility] [address] [id number] [address] [place] [address], [place] [address] Dec, [facility] [address] [id number] [address] [place] [address], [place] [address] Dec, [facility] [address] [id number] [address] [place] [address], [place] [address] Dec, 2013 [facility] [address] [id number] [address] [place] [address], [place] [address] Oct, 2013 [facility] [address] [id number] [address] [place] [address], [place] [address] Oct, 2013 [facility] [address] [id number] [address] [place] [address], [place] [address] Oct, 2013 [facility] [address] [id number] [address] [place] [address], [place] [address] Oct, 2013 [facility] [address] [id number] [address] [place] [address], [place] [address] Oct, 2013 [facility] [address] [id number] [address] [place] [address], [place] [address] Oct, 2013 [facility] [address] [id number] [address] [place] [address], [place] [address] Oct, 2013 [facility] [address] [id number] [address] [place] [address], [place] [address] Oct, [facility] [address] [id number] [address] [place] [address], [place] [address] Sep, [facility] [address] [id number] [address] [place] [address], [place] [address] Sep, [facility] [address] [id number] [address] [place] [address], [place] [address] Sep, [facility] [address] [id number] [address] [place] [address], [place] [address] Sep, [facility] [address] [id number] [address] [place] [address], [place] [address] Sep, [facility] [address] [id number] [address] [place] [address], [place] [address] Sep, [facility] [address] [id number] [address] [place] [address], [place] [address] Sep, [facility] [address] [id number] [address] [place] [address], [place] [address] Sep, [facility] [address] [id number] [address] [place] [address], [place] [address] Sep, [facility] [address] [id number] [address] [place] [address], [place] [address] Sep, [facility] [address] [id number] [address] [place] [address], [place] [address] August, [facility] [address] [id number] [address] [place] [address], [place] [address] August, [facility] [address] [id number] [address] [place] [address], [place] [address] August, [facility] [address] [id number] [address] [place] [address], [place] [address] August, [facility] [address] [id number] [address] [place] [address], [place] [address] August, [facility] [address] [id number] [address] [place] [address], [place] [address] August, [facility] [address] [id number] [address] [place] [address], [place] [address] August, [facility] [address] [id number] [address] [place] [address], [place] [address] August, [facility] [address] [id number] [address] [place] [address], [place] [address] August, [facility] [address] [id number] [address] [place] [address], [place] [address] August, [facility] [address] [id number] [address] [place] [address], [place] [address] August, [facility] [address] [id number] [address] [place] [address], [place] [address] August, [facility] [address] [id number] [address] [place] [address], [place] [address] Jul, [facility] [address] [id number] [facility] [place] [address] Jul, [facility] [address] [id number] [address] [place] [address], [place] [address] Jul, [facility] [address] [id number] [address] [place] [address], [place] [address] Jul, [facility] [address] [id number] [address] [place] [address], [place] [address] Jul, [facility] [address] [id number] [address] [place] [address], [place] [address] Jul, [facility] [address] [id number] [address] [place] [address], [place] [address] Jun, [facility] [address] [id number] [address] [place] [address], [place] [address] Jun, [facility] [address] [id number] [address] [place] [address], [place] [address] May, [facility] [address] [id number] [address] [place] [address], [place] [address] May, [facility] [address] [id number] [address] [place] [address], [place] [address] Apr, [facility] [address] [id number] [address] [place] [address], [place] [address] Apr, [facility] [address] [id number] [address] [place] [address], [place] [address] Apr, [facility] [address] [id number] [address] [place] [address], [place] [address] Apr, [facility] [address] [id number] [address] [place] [address], [place] [address] Apr, [facility] [address] [id number] [address] [place] [address] [address] Apr, [facility] [address] [id number] [address] [place] [address], [place] [address] Apr, [facility] [address] [id number] [address] [place] [address], [place] [address] Apr, [facility] [address] [id number] [address] [place] [address], [place] [address] Apr, [facility] [address] [id number] [address] [place] [address], [place] [address] Apr, [facility] [address] [id number] [address] [place] [address], [place] [address] Apr, [facility] [address] [id number] [address] [place] [address], [place] [address] Apr, [facility] [address] [id number] [address] [place] [address], [place] [address] Apr, [facility] [address] [id number] [address] [place] [address], [place] [address] Mar, [facility] [address] [id number] [address] [place] [address], [place] [address] Mar, [facility] [address] [id number] [address] [place] [address], [place] [address] Mar, [facility] [address] [id number] [address] [place] [address], [place] [address] Mar, [facility] [address] [id number] [address] [place] [address] Feb, [facility] [address] [id number] [address] [place] [address], [place] [address] Feb, [facility] [address] [id number] [address] [place] [address], [place] [address] Feb, [facility] [address] [id number] [address] [place] [address], [place] [address] Feb, [facility] [address] [id number] [address] [place] [address], [place] [address] 14 Jan, 2013 [facility] [address] [id number] [address] [place] [address], [place] [address] 14 Jan, 2013 [facility] [address] [id number] [address] [place] [address], [place] [address] 11 Jan, 2013 [facility] [address] [id number] [address] [place] [address], [place] [address] 11 Jan, 2013 [facility] [address] [id number] [address] [place] [address], [place] [address] 10 Jan, 2012 [facility] [address] [id number] [address] [place] [address], [place] [address] 10 Jan, 2013 [facility] [address] [id number] [address] [place] [address], [place] [address] 09 Jan, 2013 [facility] [address] [id number] [address] [place] [address], [place] [address] 09 Jan, 2013 [facility] [address] [id number] [address] [place] [address], [place] [address] Jan, [facility] [address] [id number] [address] [place] [address], [place] [address] 26 Dec, 2012 [facility] [address] [id number] [address] [place] [address], [place] [address] 16 Dec, 2012 [facility] [address] [id number] [address] [place] [address], [place] [address] 16 Dec, 2012 [facility] [address] [id number] [address] [place] [address], [place] [address] 13 Dec, 2012 [facility] [address] [id number] [address] [place] [address], [place] [address] 17 Nov, 2012 [facility] [address] [id number] [address] [place] [address], [place] [address] 17 Nov, 2012 [facility] [address] [id number] [address] [place] [address], [place] [address] Nov, [facility] [address] [id number] [address] [place] [address], [place] [address] Nov, [facility] [address] [id number] [address] [place] [address], [place] [address] Oct, [facility] [address] [id number] [address] [place] [address], [place] [address] Sep, [facility] [address] [id number] [address] [place] [address], [place] [address] August, [facility] [address] [id number] [address] [place] [address], [place] [address] August, [facility] [address] [id number] [address] [place] [address], [place] [address] August, [facility] [address] [id number] [address] [place] [address], [place] [address] August, [facility] [address] [id number] [address] [place] [address], [place] [address] August, [facility] [address] [id number] [address] [place] [address], [place] [address] August, [facility] [address] [id number] [address] [place] [address], [place] [address] August, [facility] [address] [id number] [address] [place] [address], [place] [address] August, [facility] [address] [id number] [address] [place] [address], [place] [address] August, [facility] [address] [id number] [address] [place] [address], [place] [address] August, [facility] [address] [id number] [address] [place] [address], [place] [address] August, [facility] [address] [id number] [address] [place] [address], [place] [address] August, [facility] [address] [id number] [address] [place] [address], [place] [address] Jul, [facility] [address] [id number] [address] [place] [address], [place] [address] Jul, [facility] [address] [id number] [address] [place] [address], [place] [address] Jul, [facility] [address] [id number] [address] [place] [address], [place] [address] Jul, [facility] [address] [id number] [address] [place] [address], [place] [address] Jul, [facility] [address] [id number] [address] [place] [address], [place] [address] Jul, [facility] [address] [id number] [address] [place] [address], [place] [address] Jul, [facility] [address] [id number] [address] [place] [address], [place] [address] Jul, [facility] [address] [id number] [address] [place] [address], [place] [address] Jul, [facility] [address] [id number] [address] [place] [address], [place] [address] Jul, [facility] [address] [id number] [address] [place] [address], [place] [address] Jul, [facility] [address] [id number] [address] [place] [address], [place] [address] Jun, [facility] [address] [id number] [address] [place] [address], [place] [address] Jun, [facility] [address] [id number] [address] [place] [address], [place] [address] Jun, [facility] [address] [id number] [address] [place] [address], [place] [address] Jun, [facility] [address] [id number] [address] [place] [address], [place] [address] May, [facility] [address] [id number] [address] [place] [address], [place] [address] 14 May, 2012 [facility] [address] [id number] [address] [place] [address], [place] [address] 05 May, 2012 [facility] [address] [id number] [address] [place] [address], [place] [address] 04 May, 2012 [facility] [address] [id number] [address] [place] [address], [place] [address] 04 May, 2012 [facility] [address] [id number] [address] [place] [address], [place] [address] May, [facility] [address] [id number] [address] [place] [address], [place] [address] Apr, [facility] [address] [id number] [address] [place] [address], [place] [address] Apr, [facility] [address] [id number] [address] [place] [address], [place] [address] 30 Apr, 2012 [facility] [address] [id number] [address] [place] [address], [place] [address] Apr, [facility] [address] [id number] [address] [place] [address], [place] [address] 15 Mar, 2012 [facility] [address] [id number] [address] [place] [address], [place] [address] 14 Mar, 2012 [facility] [address] [id number] [address] [place] [address], [place] [address] 14 Mar, 2012 [facility] [address] [id number] [address] [place] [address], [place] [address] 14 Mar, 2012 [facility] [address] [id number] [address] [place] [address], [place] [address] 14 Mar, 2012 [facility] [address] [id number] [address] [place] [address], [place] [address] 06 Mar, 2012 [facility] [address] [id number] [address] [place] [address], [place] [address] Mar, [facility] [address] [id number] [address] [place] [address], [place] [address] Feb, [facility] [address] [id number] [address] [place] [address], [place] [address] Feb, [facility] [address] [id number] [address] [place] [address], [place] [address] Feb, [facility] [address] [id number] [address] [place] [address], [place] [address] Feb, [facility] [address] [id number] [address] [place] [address], [place] [address] Jan, [facility] [address] [id number] [address] [place] [address], [place] [address] Jan, [facility] [address] [id number] [address] [place] [address], [place] [address] Jan, [facility] [address] [id number] [address] [place] [address], [place] [address] Jan, [facility] [address] [id number] [address] [place] [address], [place] [address] Jan, [facility] [address] [id number] [address] [place] [address], [place] [address] Jan, [facility] [address] [id number] [address] [place] [address], [place] [address] Dec, [facility] [address] [id number] [address] [place] [address] Dec, [facility] [address] [id number] [address] [place] [address], [place] [address] Nov, [facility] [address] [id number] [address] [place] [address], [place] [address] Sep, [facility] [address] [id number] [address] [place] [address], [place] [address] August, [facility] [address] [id number] [address] [place] [address], [place] [address] August, [facility] [address] [id number] [address] [place] [address], [place] [address] August, [facility] [address] [id number] [address] [place] [address], [place] [address] August, [facility] [address] [id number] [address] [place] [address], [place] [address] August, [facility] [address] [id number] [address] [place] [address], [place] [address] Jun, [facility] [address] [id number] [address] [place] [address], [place] [address] Jun, [facility] [address] [id number] [address] [place] [address], [place] [address] Apr, [facility] [address] [id number] [address] [place] [address], [place] [address] Apr, [facility] [address] [id number] [address] [place] [address], [place] [address] Mar, [facility] [address] [id number] [address] [place] [address], [place] [address] 22 Feb, 2011 [facility] [address] [id number] [address] [place] [address], [place] [address] 14 Feb, 2011 [facility] [address] [id number] [address] [place] [address], [place] [address] 14 Feb, 2011 [facility] [address] [id number] [address] [place] [address], [place] [address] 17 Jan, 2011 [facility] [address] [id number] [address] [place] [address], [place] [address] 15 Jan, 2011 [facility] [address] [id number] [address] [place] [address], [place] [address] 15 Jan, 2011 [facility] [address] [id number] [address] [place] [address], [place] [address] 14 Jan, 2011 [facility] [address] [facility] [id number] [address] [place] [address] 15 May, 2010 [facility] [address] [facility] [id number] [address] [place] [address] Mar, [facility] [address] [facility] [id number] [address] [place] [address] Oct, [facility] [address] [facility] [id number] [address] [place] [address] Sep, [facility] [address] [facility] [id number] [address] [place] [address] Mar, [facility] [address] [facility] [id number] [address] [place] [address] Jan, [facility] [address] [facility] [id number] [address] [place] [phone] Jan, [facility] [address] [facility] [id number] [address] [place] [address] May, IMMUNIZATIONS No Known Immunizations SOCIAL HISTORY Never Assessed [place]AS[place] [place] VITAL SIGNS MEDICATIONS Unknown Medications RESULTS No Results PROCEDURES No Known procedures INSTRUCTIONS MEDICATIONS ADMINISTERED No Known Medications MEDICAL (GENERAL) HISTORY Type Description Date Medical History hypertension Medical History Colposcopy with loop electro de excision of the cervix was performed 06/2012, mild squamous atypia (no definite dyplasia). Performed at [facility] Dr. Joy. Medical History Acute [...]
--- OUTSIDE RECORDS SUMMARY | 2019-11-23 06:06 | XMS REPORT ---
Author Author Liana Coe Doctor Organization [facility] Address Unknown Phone Unavailable Care Team Providers Care Garland Maker Name Role Phone Migration, Doctor Unavailable Unavailable PROBLEMS Type Condition ICD9-CM Code OCG27-TS Code Onset Dates Condition S tatus SNOMED Code Problem Hematuria, unspecified type R31.9 Ac tive 12238268 Problem Abnormal renal ultrasound R93.429 Acti ve [id number] Problem Anxiety F41.9 Active 22610813 Problem Hypokalemia E87.6 Active 09532235 Problem Abnormal glucose R73.09 Active 102 623911 Problem Chronic pain due to trauma G89.21 Act juanis [id number] Problem Neuroforaminal stenosis of spine M99.89 Active 428008473012 Problem Neck pain M54.2 Active 03233584 Problem Essential hypertension I10 Active 24431475 Problem Mixed hyperlipidemia E78.2 Active [id number] ALLERGIES No Information ENCOUNTERS Encounter Location Date Diagnosis [place] [address] [facility] [id number] [address] [place] [address] May, Neuroforaminal stenosis of s pine M99.89 [place] [address] [facility] [id number] [address] [place] [address] May, [facility] [address] [facility] [id number] [address] [place] [phone] May, Congestion of nasal sinus R0 9.81 [facility] [address] [facility] [id number] [address] [place] [phone] May, [facility] [address] [facility] [id number] [address] [place] [address] Apr, Neuroforaminal stenosis of s pine M99.89 [facility] [address] [facility] [id number] [address] [place] [address] Apr, Neuroforaminal stenosis of s pine M99.89 and Chronic pain due to trauma G89.21 [facility] [address] [id number] [address] [place] [address] Mar, UTI (urinary tract infection ) N39.0 [facility] [address] [id number] [address] [place] [address] Mar, Vertigo R42 [facility] [address] [id number] [address] [place] [address] Mar, Neuroforaminal stenosis of s jose M99.89 [facility] [address] [id number] [address] [place] [phone] Feb, Extensor tendon disruption M 67.89 [facility] [address] [id number] [address] [place] [phone] Feb, Neuroforaminal stenosis of ayla garcia M99.89 and High risk medication use Z79.899 [facility] [address] [id number] [address] [place] [address] Jan, Hypokalemia E87.6 [facility] [address] [id number] [address] [place] [address] Jan, Flank pain R10.9 and Acute r ight-sided low back pain without sciatica M54.5 [facility] [address] [id number] [address] [place] [address] Jan, Hypokalemia E87.6 [facility] [address] [id number] [address] [place] [phone] Jan, [facility] [address] [id number] [address] [place] [id number] Jan, URI, acute J06.9 [facility] [address] [id number] [address] [place] [address] Jan, Neuroforaminal stenosis of ayla garcia M99.89 [facility] [address] [id number] [address] [place] [address] 13 Dec, 2017 Lateral epicondylitis, right elbow M77.11 [place] [address] [address] 11 Dec, 2017 Allergic rhinitis due to monica rosalina, unspecified seasonality J30.1 and Allergic conjunctivitis of both eyes H10.13 [place] [address] [address] 10 Dec, 2017 Neuroforaminal stenosis of s pine M99.89 [place] [address] [address] 06 Dec, 2017 Mixed hyperlipidemia E78.2 [place] [address] [address] 05 Dec, 2017 Abnormal glucose R73.09 ; Ab normal renal ultrasound R93.429 ; Dysuria R30.0 ; Cystitis without hematuria N30.90 ; Hypokalemia E87.6 ; Mixed hyperlipidemia E78.2 and Hematuria, unspecified type R31.9 [place] [address] [address] Nov, Hypokalemia E87.6 ; Mixed hy perlipidemia E78.2 and Hematuria, unspecified type R31.9 [place] [address] [address] Nov, [place] [address] [address] Nov, Hypokalemia E87.6 [place] [address] [address] Nov, [place] [address] [address] Nov, Abnormal renal ultrasound R9 3.429 [place] [address] [address] Nov, Abnormal renal ultrasound R9 3.429 [place] [address] [id number] [address] [place] [address] 09 Nov, 2017 Hematuria, unspecified type R31.9 and Neuroforaminal stenosis of spine M99.89 [facility] [address] [id number] [address] [place] [address] Nov, Dysuria R30.0 [place] [address] [id number] [address] [place] [address] Oct, Lateral epicondylitis, right elbow M77.11 [place] [address] [id number] [address] [place] [address] Oct, Neuroforaminal stenosis of s jose M99.89 ; Visit for TB skin test Z11.1 and Essential hypertension I10 [place] [address] [id number] [address] [place] [address] Oct, [place] [address] [id number] [address] [place] [address] Oct, Neuroforaminal stenosis of s pine M99.89 [place] [address] [id number] [address] [place] [address] Oct, Visit for TB skin test Z11.1 [place] [address] [id number] [address] [place] [address] 05 Oct, 2017 Cystitis without hematuria N 30.90 [place] [address] [id number] [address] [place] [address] Sep, Screening breast examination Z12.39 [place] [address] [id number] [address] [place] [address] Sep, Dysuria R30.0 and Cystitis w ithout hematuria N30.90 [place] [address] [id number] [address] [place] [address] 14 Sep, 2017 Essential hypertension I10 a nd Neuroforaminal stenosis of spine M99.89 [place] [address] [id number] [address] [place] [address] Sep, Abnormal glucose R73.09 [place] [address] [id number] [address] [place] [address] August, Lateral epicondylitis, right elbow M77.11 [place] [address] [id number] [address] [place] [phone] August, Screen for STD (sexually tra nsmitted disease) Z11.3 [place] [address] [id number] [address] [place] [address] August, Neuroforaminal stenosis of s jose M99.89 ; Mixed hyperlipidemia E78.2 ; Elevated fasting glucose R73.01 ; Screening mammogram, encounter for Z12.31 and Encounter for well woman exam without gynecological exam Z00.00 [place] [address] [id number] [address] [place] [address] August, Neuroforaminal stenosis of s pine M99.89 [place] [address] [id number] [address] [place] [address] August, Essential hypertension I10 ; Hypokalemia E87.6 and Mixed hyperlipidemia E78.2 [place] [address] [id number] [address] [place] [id number] Jul, [place] [address] [id number] [address] [place] [address] Jul, Neuroforaminal stenosis of s pine M99.89 [place] [address] [id number] [address] [place] [address] Jul, Lateral epicondylitis, right elbow M77.11 [place] [address] [id number] [address] [place] [address] Jul, [place] [address] [id number] [address] [place] [address] Jun, High ankle sprain of right l ower extremity, initial encounter S93.431A [place] [address] [id number] [address] [place] [address] Jun, Essential hypertension I10 [facility] [address] [id number] [address] [place] [address] Jun, [facility] [address] [id number] [address] [place] [address] Jun, [facility] [address] [id number] [address] [place] [address] Jun, Neuroforaminal stenosis of s pine M99.89 [facility] [address] [id number] [address] [place] [address] Jun, Pain of right upper extremit y M79.601 and Essential hypertension I10 [place] [address] [id number] [address] [place] [address] Jun, [place] [address] [facility] [id number] [address] [place] [address] Jun, Dysuria R30.0 ; Acute cystit is with hematuria N30.01 and Screen for STD (sexually transmitted disease) Z11.3 [place] [address] [id number] [address] [place] [address] May, Chronic pain due to trauma G 89.21 [place] [address] [id number] [address] [place] [address] May, Essential hypertension I10 [facility] [address] [id number] [address] [place] [address] May, Neuroforaminal stenosis of s pine M99.89 [facility] [address] [id number] [address] [place] [address] Apr, Allergic reaction, initial e ncounter T78.40XA [facility] [address] [id number] [address] [place] [address] Apr, Low back pain, unspecified b ack pain laterality, unspecified chronicity, with sciatica presence unspecified M54.5 ; Acute cystitis with hematuria N30.01 ; Neuroforaminal stenosis of spine M99.89 ; Bilateral acute serous otitis media, recurrence not specified H65.03 ; Mixed hyperlipidemia E78.2 ; Essential hypertension I10 ; Immunization counseling Z71.89 and Encounter for immunization Z23 [facility] [address] [id number] [address] [place] [address] 08 Apr, 2017 Neck pain M54.2 [facility] [address] [id number] [address] [place] [address] 26 Mar, 2017 Neuroforaminal stenosis of s pine M99.89 [place] [address] [id number] [address] [place] [address] Mar, Pharyngitis due to other org anism J02.8 [facility] [address] [id number] [address] [place] [address] Feb, Neuroforaminal stenosis of s pine M99.89 [facility] [address] [id number] [address] [place] [address] 08 Feb, 2017 UTI (urinary tract infection ) N39.0 [facility] [address] [id number] [address] [place] [address] 07 Feb, 2017 Recent urinary tract infecti on Z87.440 ; Neuroforaminal stenosis of spine M99.89 ; Neck pain M54.2 ; Chronic pain due to trauma G89.21 and Recurrent UTI N39.0 [facility] [address] [id number] [address] [place] [address] 03 Feb, 2017 [facility] [address] [id number] [address] [place] [address] Jan, Neuroforaminal stenosis of s pine M99.89 [facility] [address] [id number] [address] [place] [address] 28 Dec, 2016 Neuroforaminal stenosis of s pine M99.89 [facility] [address] [id number] [address] [place] [address] 18 Dec, 2016 Acute seasonal allergic rhin itis due to pollen J30.1 [facility] [address] [id number] [address] [place] [address] 08 Dec, 2016 [facility] [address] [id number] [address] [place] [address] 08 Dec, 2016 Acute seasonal allergic rhin itis, unspecified trigger J30.2 ; Allergic conjunctivitis of both eyes H10.13 and Dysfunction of both eustachian tubes H69.83 [facility] [address] [id number] [address] [place] [address] 07 Dec, 2016 [place] [address] [id number] [address] [place] [address] Dec, Nevus D22.9 [place] [address] [facility] [id number] [address] [place] [address] Nov, Chronic pain due to trauma G 89.21 and Neuroforaminal stenosis of spine M99.89 [place] [address] [id number] [address] [place] [address] Nov, Neuroforaminal stenosis of s pine M99.89 ; Essential hypertension I10 ; Mixed hyperlipidemia E78.2 ; Hypokalemia E87.6 ; Neck pain M54.2 and Nevus D22.9 [place] [address] [id number] [address] [place] [address] Oct, Neuroforaminal stenosis of s pine M99.89 [facility] [address] [id number] [address] [place] [address] Sep, Neuroforaminal stenosis of s pine M99.89 [place] [address] [id number] [address] [place] [address] Sep, [place] [address] [id number] [address] [place] [address] August, [facility] [address] [facility] [id number] [address] [place] [address] August, Neck pain M54.2 and Neurofor aminal stenosis of spine M99.89 [facility] [address] [id number] [address] [place] [address] August, Routine gynecological examin ation Z01.419 and Screening breast examination Z12.39 [facility] [address] [id number] [address] [place] [address] Jul, [facility] [address] [id number] [address] [place] [address] Jul, [facility] [address] [id number] [address] [place] [address] Jul, Neuroforaminal stenosis of s pine M99.89 [facility] [address] [id number] [address] [place] [address] Jul, [facility] [address] [id number] [address] [place] [address] Jul, Neuroforaminal stenosis of l umbar 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 [facility] [address] [id number] [address] [place] [address] Jul, [facility] [address] [id number] [address] [place] [address] Jul, [facility] [address] [id number] [address] [place] [address] Jun, Neuroforaminal stenosis of s pine M99.89 [facility] [address] [id number] [address] [place] [address] Jun, Uterine leiomyoma, unspecifi ed location D25.9 and Allergic reaction caused by a drug, initial encounter T78.40XA [facility] [address] [id number] [address] [place] [address] Jun, [facility] [address] [id number] [address] [place] [address] May, UTI symptoms R39.9 and Pain of right sacroiliac joint M53.3 [place] [address] [id number] [address] [place] [address] May, Neuroforaminal stenosis of s jose M99.89 [place] [address] [id number] [address] [place] [address] May, [place] [address] [facility] [id number] [address] [place] [address] May, Acute mucoid otitis media of left ear H65.112 and Acute non- recurrent maxillary sinusitis J01.00 [place] [address] [facility] [id number] [address] [place] [address] May, Acute bacterial conjunctivit is of both eyes H10.33 ; Left arm pain M79.602 and Hypokalemia E87.6 [place] [address] [facility] [id number] [address] [place] [address] Apr, [place] [address] [id number] [address] [place] [address] Apr, Neuroforaminal stenosis of s pine M99.89 ; Neck pain M54.2 ; Chronic pain due to trauma G89.21 ; Mixed hyperlipidemia E78.2 ; Essential hypertension I10 and Hypokalemia E87.6 [place] [address] [facility] [id number] [address] [place] [address] Mar, Oral candidiasis B37.0 ; Nathaniel roforaminal stenosis of spine M99.89 ; Neck pain M54.2 and Chronic pain due to trauma G89.21 [place] [address] [facility] [id number] [address] [place] [address] Feb, [place] [address] [facility] [id number] [address] [place] [address] Feb, [place] [address] [facility] [id number] [address] [place] [address] Feb, UTI (urinary tract infection ) N39.0 [facility] [address] [id number] [address] [place] [address] 09 Feb, 2016 Dysuria R30.0 [facility] [address] [id number] [address] [place] [address] 08 Feb, 2016 Dysuria R30.0 [facility] [address] [id number] [address] [place] [address] Feb, Neuroforaminal stenosis of s pine M99.89 ; Neck pain M54.2 ; Essential hypertension I10 ; Chronic pain due to trauma G89.21 ; Dysuria R30.0 ; Abnormal MRI, shoulder R93.8 and Acute cystitis without hematuria N30.00 [facility] [address] [id number] [address] [place] [address] Jan, [facility] [address] [id number] [address] [place] [address] Jan, [facility] [address] [id number] [address] [place] [address] Jan, [facility] [address] [id number] [address] [place] [address] Jan, Abnormal MRI R93.8 [facility] [address] [id number] [address] [place] [address] 29 Dec, 2015 [facility] [address] [id number] [address] [place] [address] 15 Dec, 2015 Acute pain of left shoulder M25.512 [facility] [address] [id number] [address] [place] [id number] 09 Dec, 2015 [facility] [address] [id number] [address] [place] [address] 08 Dec, 2015 [facility] [address] [id number] [address] [place] [address] 07 Dec, 2015 Acute pain of left shoulder M25.512 [facility] [address] [id number] [address] [place] [address] Nov, [facility] [address] [id number] [address] [place] [address] Nov, Neuroforaminal stenosis of s pine M99.89 ; Neck pain M54.2 ; Abnormal mammogram R92.8 ; Essential hypertension I10 and Chronic pain due to trauma G89.21 [facility] [address] [id number] [address] [place] [address] Nov, [facility] [address] [id number] [address] [place] [address] Oct, Acute stress disorder F43.0 [facility] [address] [id number] [address] [place] [address] Oct, [facility] [address] [id number] [address] [place] [address] Oct, [facility] [address] [id number] [address] [place] [address] Oct, [facility] [address] [id number] [address] [place] [address] Sep, [facility] [address] [id number] [address] [place] [address] August, [facility] [address] [id number] [address] [place] [id number] Jul, Neuroforaminal stenosis of s pine M99.89 ; Neck pain M54.2 ; Abnormal mammogram R92.8 and Essential hypertension I10 [facility] [address] [id number] [address] [place] [address] Jul, [facility] [address] [id number] [address] [place] [address] Jul, [facility] [address] [id number] [address] [place] [address] Jul, Abnormal mammogram R92.8 [facility] [address] [id number] [address] [place] [address] 08 Jul, 2015 [facility] [address] [facility] [id number] [address] [place] [address] Jul, UTI (urinary tract infection ) N39.0 [facility] [address] [facility] [id number] [address] [place] [address] Jul, Dysuria R30.0 [facility] [address] [facility] [id number] [address] [place] [phone] Jun, [facility] [address] [facility] [id number] [address] [place] [address] Jun, [facility] [address] [place] [id number] [address] [place] [address] Jun, Hypokalemia E87.6 and Hematu martina R31.9 [place] [address] [place] [id number] [address] [place] [address] Jun, Hypokalemia E87.6 [facility] [address] [facility] [id number] [address] [place] [phone] Jun, [facility] [address] [id number] [address] [place] [phone] Jun, Hypokalemia E87.6 [facility] [address] [id number] [address] [place] [phone] Jun, Hypokalemia E87.6 [facility] [address] [id number] [address] [place] [phone] 15 Jun, 2015 Neuroforaminal stenosis of s pine M99.89 ; Hypokalemia E87.6 ; Neck pain M54.2 ; Essential hypertension I10 ; Mixed hyperlipidemia E78.2 and Screening breast examination Z12.39 [place] [id number] [facility] [id number] [address] [place] [id number] 08 Jun, 2015 Dysuria R30.0 ; UTI (urinary tract infection) N39.0 and Hematuria R31.9 [place] [address] [facility] [id number] [address] [place] [phone] May, [facility] [id number] [place] [phone] 18 May, 2015 High risk sexual behavior Z7 2.51 ; Hypokalemia E87.6 ; Neuroforaminal stenosis of spine M99.89 ; Neck pain M54.2 ; Essential hypertension I10 ; Mixed hyperlipidemia E78.2 ; STD exposure Z20.2 and Concern about STD in female without diagnosis Z71.1 [facility] [address] [facility] [id number] [address] [place] [phone] 16 May, 2015 Neuroforaminal stenosis of s pine M99.89 ; Neck pain M54.2 ; Hypokalemia E87.6 ; Essential hypertension I10 and Mixed hyperlipidemia E78.2 [facility] [address] [place] [id number] [address] [place] [phone] May, [facility] [address] [facility] [id number] [address] [place] [phone] 08 May, 2015 High risk sexual behavior Z7 2.51 ; STD exposure Z20.2 and Concern about STD in female without diagnosis Z71.1 [facility] [address] [facility] [id number] [address] [place] [phone] May, [facility] [address] [facility] [id number] [address] [place] [phone] Apr, Neuroforaminal stenosis of s pine M99.89 ; Mixed hyperlipidemia E78.2 ; Essential hypertension I10 and Hypokalemia E87.6 [facility] [address] [facility] [id number] [address] [place] [phone] Mar, [facility] [address] [facility] [id number] [address] [place] [phone] Mar, Hypokalemia E87.6 [facility] [address] [facility] [id number] [address] [place] [address] Mar, Neuroforaminal stenosis of s pine M99.89 ; Mixed hyperlipidemia E78.2 ; Neck pain M54.2 ; Essential hypertension I10 ; Abnormal fasting glucose R73.09 ; Hypokalemia E87.6 and Constipation K59.00 [facility] [address] [facility] [id number] [address] [place] [address] Feb, Neuroforaminal stenosis of s pine M99.89 ; Mixed hyperlipidemia E78.2 ; Neck pain M54.2 ; Essential hypertension I10 ; Abnormal fasting glucose R73.09 ; Hypokalemia E87.6 and Constipation K59.00 [facility] [address] [facility] [id number] [address] [place] [address] Feb, Elevated fasting blood sugar R73.01 [place] [address] [address] [facility] [id number] [address] [place] [address] Feb, Elevated fasting blood sugar R73.01 [place] [address] [address] [facility] [id number] [address] [place] [address] Feb, Hair loss L65.9 [place] [address] [address] [facility] [id number] [address] [place] [address] Feb, Sinusitis J32.9 ; Essential hypertension I10 and Hair loss L65.9 [facility] [address] [facility] [id number] [address] [place] [address] Jan, [facility] [address] [facility] [id number] [address] [place] [address] Jan, Essential hypertension I10 ; Neuroforaminal stenosis of spine M99.89 ; Neck pain M54.2 ; Mixed hyperlipidemia E78.2 and Anxiety F41.9 [facility] [address] [facility] [id number] [address] [place] [address] Jan, [facility] [address] [facility] [id number] [address] [place] [address] Jan, Mixed hyperlipidemia E78.2 ; Essential (primary) hypertension I10 ; Strain of muscle, fascia and tendon at neck level, subsequent encounter S16.1XXD and Tension-type headache, unspecified, not intractable G44.209 [facility] [address] [id number] [address] [place] [id number] Dec, Lumbar back pain 724.2 and N euroforaminal stenosis of spine 724.00 [facility] [address] [id number] [address] [place] [address] Nov, [facility] [address] [id number] [address] [place] [address] Nov, Lumbar back pain 724.2 and N euroforaminal stenosis of spine 724.00 [place] [address] [address] [facility] [id number] [address] [place] [address] Nov, Edema 782.3 ; Lumbar back pa in 724.2 ; Essential hypertension, benign 401.1 ; Hyperlipemia 272.4 ; Neuroforaminal stenosis of spine 724.00 and Post-concussion headache 339.20 [facility] [address] [id number] [address] [place] [address] Nov, [facility] [address] [facility] [id number] [address] [place] [phone] Nov, [facility] [address] [facility] [id number] [address] [place] [address] Oct, Essential hypertension, sheridan gn 401.1 [facility] [address] [facility] [id number] [address] [place] [address] Oct, Edema 782.3 ; Lumbar back pa in 724.2 ; Essential hypertension, benign 401.1 ; Hyperlipemia 272.4 ; Neuroforaminal stenosis of spine 724.00 and Post-concussion headache 339.20 [facility] [address] [facility] [id number] [address] [place] [address] Oct, [facility] [address] [facility] [id number] [address] [place] [address] Oct, Edema 782.3 [facility] [address] [id number] [address] [place] [address] Oct, Lumbar back pain 724.2 [facility] [address] [id number] [address] [place] [address] Oct, Cervicalgia 723.1 ; Lumbar b ack pain 724.2 and High risk medication use V58.69 [facility] [address] [id number] [address] [place] [address] Sep, [facility] [address] [id number] [address] [place] [address] Sep, Lumbar strain 847.2 [facility] [address] [facility] [id number] [address] [place] [address] August, Edema 782.3 and Eustachian t ube dysfunction 381.81 [facility] [address] [facility] [id number] [address] [place] [address] August, [facility] [address] [id number] [address] [place] [address] August, Eustachian tube dysfunction 381.81 [facility] [address] [id number] [address] [place] [address] Jul, Otalgia 388.70 and Otitis me jonathon 382.9 [facility] [address] [id number] [address] [place] [address] Jul, [facility] [address] [id number] [address] [place] [phone] Jul, [facility] [address] [id number] [address] [place] [phone] Jul, [facility] [address] [facility] [id number] [address] [place] [phone] Jul, [facility] [address] [facility] [id number] [address] [place] [phone] Jul, [facility] [address] [id number] [address] [place] [address], [place] [address] Jun, [facility] [address] [id number] [address] [place] [address], [place] [address] 27 Jun, 2014 [facility] [address] [id number] [address] [place] [address], [place] [address] Jun, [facility] [address] [id number] [address] [place] [address], [place] [address] May, 2014 [facility] [address] [id number] [address] [place] [address], [place] [address] May, 2014 [facility] [address] [id number] [address] [place] [address], [place] [address] May, 2014 [facility] [address] [id number] [address] [place] [address], [place] [address] May, 2014 [facility] [address] [id number] [address] [place] [address], [place] [address] May, 2014 [facility] [address] [id number] [address] [place] [address], [place] [address] May, [facility] [address] [id number] [address] [place] [address], [place] [address] May, [facility] [address] [id number] [address] [place] [address], [place] [address] May, [facility] [address] [id number] [address] [place] [address], [place] [address] May, [facility] [address] [id number] [address] [place] [address], [place] [address] May, [facility] [address] [id number] [address] [place] [address], [place] [address] Apr, [facility] [address] [id number] [address] [place] [address], [place] [address] Apr, [facility] [address] [id number] [address] [place] [phone] Apr, [facility] [address] [id number] [address] [place] [address], [place] [address] Apr, [facility] [address] [id number] [address] [place] [address], [place] [address] Apr, [facility] [address] [id number] [address] [place] [address], [place] [address] Apr, [facility] [address] [id number] [address] [place] [address], [place] [address] Apr, [facility] [address] [id number] [address] [place] [address], [place] [address] Apr, [facility] [address] [id number] [address] [place] [address], [place] [address] Apr, [facility] [address] [id number] [address] [place] [address], [place] [address] Apr, [facility] [address] [id number] [address] [place] [address], [place] [address] Apr, [facility] [address] [id number] [address] [place] [address], [place] [address] Apr, [facility] [address] [id number] [address] [place] [address], [place] [address] Apr, [facility] [address] [id number] [address] [place] [address], [place] [address] Apr, [facility] [address] [id number] [address] [place] [address], [place] [address] Apr, [facility] [address] [id number] [address] [place] [address], [place] [address] Mar, [facility] [address] [id number] [address] [place] [address], [place] [address] Mar, [facility] [address] [id number] [address] [place] [address], [place] [address] Mar, [facility] [address] [id number] [address] [place] [address], [place] [address] Mar, [facility] [address] [id number] [address] [place] [address], [place] [address] Feb, [facility] [address] [id number] [address] [place] [address], [place] [address] Feb, [facility] [address] [id number] [address] [place] [address], [place] [address] Feb, [facility] [address] [id number] [address] [place] [address], [place] [address] Feb, [facility] [address] [id number] [address] [place] [address], [place] [address] Jan, [facility] [address] [id number] [address] [place] [address], [place] [address] Jan, [facility] [address] [id number] [address] [place] [address], [place] [address] Jan, [facility] [address] [id number] [address] [place] [address], [place] [address] Jan, [facility] [address] [id number] [address] [place] [address], [place] [address] Jan, [facility] [address] [id number] [address] [place] [address], [place] [address] Jan, [facility] [address] [id number] [address] [place] [address], [place] [address] Jan, [facility] [address] [id number] [address] [place] [address], [place] [address] Jan, [facility] [address] [id number] [address] [place] [address], [place] [address] Dec, [facility] [address] [id number] [address] [place] [address], [place] [address] Dec, [facility] [address] [id number] [address] [place] [address], [place] [address] Dec, [facility] [address] [id number] [address] [place] [address], [place] [address] Dec, 2013 [facility] [address] [id number] [address] [place] [address], [place] [address] Oct, 2013 [facility] [address] [id number] [address] [place] [address], [place] [address] Oct, 2013 [facility] [address] [id number] [address] [place] [address], [place] [address] Oct, 2013 [facility] [address] [id number] [address] [place] [address], [place] [address] Oct, 2013 [facility] [address] [id number] [address] [place] [address], [place] [address] Oct, 2013 [facility] [address] [id number] [address] [place] [address], [place] [address] Oct, 2013 [facility] [address] [id number] [address] [place] [address], [place] [address] Oct, 2013 [facility] [address] [id number] [address] [place] [address], [place] [address] Oct, [facility] [address] [id number] [address] [place] [address], [place] [address] Sep, [facility] [address] [id number] [address] [place] [address], [place] [address] Sep, [facility] [address] [id number] [address] [place] [address], [place] [address] Sep, [facility] [address] [id number] [address] [place] [address], [place] [address] Sep, [facility] [address] [id number] [address] [place] [address], [place] [address] Sep, [facility] [address] [id number] [address] [place] [address], [place] [address] Sep, [facility] [address] [id number] [address] [place] [address], [place] [address] Sep, [facility] [address] [id number] [address] [place] [address], [place] [address] Sep, [facility] [address] [id number] [address] [place] [address], [place] [address] Sep, [facility] [address] [id number] [address] [place] [address], [place] [address] Sep, [facility] [address] [id number] [address] [place] [address], [place] [address] August, [facility] [address] [id number] [address] [place] [address], [place] [address] August, [facility] [address] [id number] [address] [place] [address], [place] [address] August, [facility] [address] [id number] [address] [place] [address], [place] [address] August, [facility] [address] [id number] [address] [place] [address], [place] [address] August, [facility] [address] [id number] [address] [place] [address], [place] [address] August, [facility] [address] [id number] [address] [place] [address], [place] [address] August, [facility] [address] [id number] [address] [place] [address], [place] [address] August, [facility] [address] [id number] [address] [place] [address], [place] [address] August, [facility] [address] [id number] [address] [place] [address], [place] [address] August, [facility] [address] [id number] [address] [place] [address], [place] [address] August, [facility] [address] [id number] [address] [place] [address], [place] [address] August, [facility] [address] [id number] [address] [place] [address], [place] [address] Jul, [facility] [address] [id number] [facility] [place] [address] Jul, [facility] [address] [id number] [address] [place] [address], [place] [address] Jul, [facility] [address] [id number] [address] [place] [address], [place] [address] Jul, [facility] [address] [id number] [address] [place] [address], [place] [address] Jul, [facility] [address] [id number] [address] [place] [address], [place] [address] Jul, [facility] [address] [id number] [address] [place] [address], [place] [address] Jun, [facility] [address] [id number] [address] [place] [address], [place] [address] Jun, [facility] [address] [id number] [address] [place] [address], [place] [address] May, [facility] [address] [id number] [address] [place] [address], [place] [address] May, [facility] [address] [id number] [address] [place] [address], [place] [address] Apr, [facility] [address] [id number] [address] [place] [address], [place] [address] Apr, [facility] [address] [id number] [address] [place] [address], [place] [address] Apr, [facility] [address] [id number] [address] [place] [address], [place] [address] Apr, [facility] [address] [id number] [address] [place] [address], [place] [address] Apr, [facility] [address] [id number] [address] [place], [place] [address] [address] Apr, [facility] [address] [id number] [address] [place] [address], [place] [address] Apr, [facility] [address] [id number] [address] [place] [address], [place] [address] Apr, [facility] [address] [id number] [address] [place] [address], [place] [address] Apr, [facility] [address] [id number] [address] [place] [address], [place] [address] Apr, [facility] [address] [id number] [address] [place] [address], [place] [address] Apr, [facility] [address] [id number] [address] [place] [address], [place] [address] Apr, [facility] [address] [id number] [address] [place] [address], [place] [address] Apr, [facility] [address] [id number] [address] [place] [address], [place] [address] Mar, [facility] [address] [id number] [address] [place] [address], [place] [address] Mar, [facility] [address] [id number] [address] [place] [address], [place] [address] Mar, [facility] [address] [id number] [address] [place] [address], [place] [address] Mar, [facility] [address] [id number] [address] [place] [address] Feb, [facility] [address] [id number] [address] [place] [address], [place] [address] Feb, [facility] [address] [id number] [address] [place] [address], [place] [address] Feb, [facility] [address] [id number] [address] [place] [address], [place] [address] Feb, [facility] [address] [id number] [address] [place] [address], [place] [address] 14 Jan, 2013 [facility] [address] [id number] [address] [place] [address], [place] [address] 14 Jan, 2013 [facility] [address] [id number] [address] [place] [address], [place] [address] 11 Jan, 2013 [facility] [address] [id number] [address] [place] [address], [place] [address] 11 Jan, 2013 [facility] [address] [id number] [address] [place] [address], [place] [address] 10 Jan, 2012 [facility] [address] [id number] [address] [place] [address], [place] [address] 10 Jan, 2013 [facility] [address] [id number] [address] [place] [address], [place] [address] 09 Jan, 2013 [facility] [address] [id number] [address] [place] [address], [place] [address] 09 Jan, 2013 [facility] [address] [id number] [address] [place] [address], [place] [address] Jan, [facility] [address] [id number] [address] [place] [address], [place] [address] 26 Dec, 2012 [facility] [address] [id number] [address] [place] [address], [place] [address] 16 Dec, 2012 [facility] [address] [id number] [address] [place] [address], [place] [address] 16 Dec, 2012 [facility] [address] [id number] [address] [place] [address], [place] [address] 13 Dec, 2012 [facility] [address] [id number] [address] [place] [address], [place] [address] 17 Nov, 2012 [facility] [address] [id number] [address] [place] [address], [place] [address] 17 Nov, 2012 [facility] [address] [id number] [address] [place] [address], [place] [address] Nov, [facility] [address] [id number] [address] [place] [address], [place] [address] Nov, [facility] [address] [id number] [address] [place] [address], [place] [address] Oct, [facility] [address] [id number] [address] [place] [address], [place] [address] Sep, [facility] [address] [id number] [address] [place] [address], [place] [address] August, [facility] [address] [id number] [address] [place] [address], [place] [address] August, [facility] [address] [id number] [address] [place] [address], [place] [address] August, [facility] [address] [id number] [address] [place] [address], [place] [address] August, [facility] [address] [id number] [address] [place] [address], [place] [address] August, [facility] [address] [id number] [address] [place] [address], [place] [address] August, [facility] [address] [id number] [address] [place] [address], [place] [address] August, [facility] [address] [id number] [address] [place] [address], [place] [address] August, [facility] [address] [id number] [address] [place] [address], [place] [address] August, [facility] [address] [id number] [address] [place] [address], [place] [address] August, [facility] [address] [id number] [address] [place] [address], [place] [address] August, [facility] [address] [id number] [address] [place] [address], [place] [address] August, [facility] [address] [id number] [address] [place] [address], [place] [address] Jul, [facility] [address] [id number] [address] [place] [address], [place] [address] Jul, [facility] [address] [id number] [address] [place] [address], [place] [address] Jul, [facility] [address] [id number] [address] [place] [address], [place] [address] Jul, [facility] [address] [id number] [address] [place] [address], [place] [address] Jul, [facility] [address] [id number] [address] [place] [address], [place] [address] Jul, [facility] [address] [id number] [address] [place] [address], [place] [address] Jul, [facility] [address] [id number] [address] [place] [address], [place] [address] Jul, [facility] [address] [id number] [address] [place] [address], [place] [address] Jul, [facility] [address] [id number] [address] [place] [address], [place] [address] Jul, [facility] [address] [id number] [address] [place] [address], [place] [address] Jul, [facility] [address] [id number] [address] [place] [address], [place] [address] Jun, [facility] [address] [id number] [address] [place] [address], [place] [address] Jun, [facility] [address] [id number] [address] [place] [address], [place] [address] Jun, [facility] [address] [id number] [address] [place] [address], [place] [address] Jun, [facility] [address] [id number] [address] [place] [address], [place] [address] May, [facility] [address] [id number] [address] [place] [address], [place] [address] 14 May, 2012 [facility] [address] [id number] [address] [place] [address], [place] [address] 05 May, 2012 [facility] [address] [id number] [address] [place] [address], [place] [address] 04 May, 2012 [facility] [address] [id number] [address] [place] [address], [place] [address] 04 May, 2012 [facility] [address] [id number] [address] [place] [address], [place] [address] May, [facility] [address] [id number] [address] [place] [address], [place] [address] Apr, [facility] [address] [id number] [address] [place] [address], [place] [address] Apr, [facility] [address] [id number] [address] [place] [address], [place] [address] 30 Apr, 2012 [facility] [address] [id number] [address] [place] [address], [place] [address] Apr, [facility] [address] [id number] [address] [place] [address], [place] [address] 15 Mar, 2012 [facility] [address] [id number] [address] [place] [address], [place] [address] 14 Mar, 2012 [facility] [address] [id number] [address] [place] [address], [place] [address] 14 Mar, 2012 [facility] [address] [id number] [address] [place] [address], [place] [address] 14 Mar, 2012 [facility] [address] [id number] [address] [place] [address], [place] [address] 14 Mar, 2012 [facility] [address] [id number] [address] [place] [address], [place] [address] 06 Mar, 2012 [facility] [address] [id number] [address] [place] [address], [place] [address] Mar, [facility] [address] [id number] [address] [place] [address], [place] [address] Feb, [facility] [address] [id number] [address] [place] [address], [place] [address] Feb, [facility] [address] [id number] [address] [place] [address], [place] [address] Feb, [facility] [address] [id number] [address] [place] [address], [place] [address] Feb, [facility] [address] [id number] [address] [place] [address], [place] [address] Jan, [facility] [address] [id number] [address] [place] [address], [place] [address] Jan, [facility] [address] [id number] [address] [place] [address], [place] [address] Jan, [facility] [address] [id number] [address] [place] [address], [place] [address] Jan, [facility] [address] [id number] [address] [place] [address], [place] [address] Jan, [facility] [address] [id number] [address] [place] [address], [place] [address] Jan, [facility] [address] [id number] [address] [place] [address], [place] [address] Dec, [facility] [address] [id number] [address] [place] [id number] Dec, [facility] [address] [id number] [address] [place] [address], [place] [address] Nov, [facility] [address] [id number] [address] [place] [address], [place] [address] Sep, [facility] [address] [id number] [address] [place] [address], [place] [address] August, [facility] [address] [id number] [address] [place] [address], [place] [address] August, [facility] [address] [id number] [address] [place] [address], [place] [address] August, [facility] [address] [id number] [address] [place] [address], [place] [address] August, [facility] [address] [id number] [address] [place] [address], [place] [address] August, [facility] [address] [id number] [address] [place] [address], [place] [address] Jun, [facility] [address] [id number] [address] [place] [address], [place] [address] Jun, [facility] [address] [id number] [address] [place] [address], [place] [address] Apr, [facility] [address] [id number] [address] [place] [address], [place] [address] Apr, [facility] [address] [id number] [address] [place] [address], [place] [address] Mar, [facility] [address] [id number] [address] [place] [address], [place] [address] 22 Feb, 2011 [facility] [address] [id number] [address] [place] [address], [place] [address] 14 Feb, 2011 [facility] [address] [id number] [address] [place] [address], [place] [address] 14 Feb, 2011 [facility] [address] [id number] [address] [place] [address], [place] [address] 17 Jan, 2011 [facility] [address] [id number] [address] [place] [address], [place] [address] 15 Jan, 2011 [facility] [address] [id number] [address] [place] [address], [place] [address] 15 Jan, 2011 [facility] [address] [id number] [address] [place] [address], [place] [address] 14 Jan, 2011 [facility] [address] [facility] [id number] [address] [place] [address] 15 May, 2010 [facility] [address] [facility] [id number] [address] [place] [address] Mar, [facility] [address] [facility] [id number] [address] [place] [address] Oct, [facility] [address] [facility] [id number] [address] [place] [address] Sep, [facility] [address] [facility] [id number] [address] [place] [address] Mar, [facility] [address] [facility] [id number] [address] [place] [address] Jan, [facility] [address] [facility] [id number] [address] [place] [id number] Jan, [facility] [address] [facility] [id number] [address] [place] [address] May, IMMUNIZATIONS No Known Immunizations SOCIAL HISTORY Never Assessed REASON FOR VISIT EMR-[facility] [place] PLAN OF CARE VITAL SIGNS MEDICATIONS Unknown Medications RESULTS No Results PROCEDURES No Known procedures INSTRUCTIONS MEDICATIONS ADMINISTERED No Known Medications MEDICAL (GENERAL) HISTORY Type Description Date Medical History hypertension Medical History Colposcopy with loop electro de excision of the cervix was performed 06/2012, mild squamous atypia (no definite dyplasia). Performed at [facility] Dr. Joy. Medical History Acute [...]
--- OUTSIDE RECORDS SUMMARY | 2019-11-23 06:06 | XMS REPORT ---
Author Author Liana Coe Doctor Organization [facility] Address Unknown Phone Unavailable Care Team Providers Care Ui Programmer Name Role Phone Migration, Doctor Unavailable Unavailable PROBLEMS Type Condition ICD9-CM Code GYN00-OA Code Onset Dates Condition S tatus SNOMED Code Problem Hematuria, unspecified type R31.9 Ac tive 71882457 Problem Abnormal renal ultrasound R93.429 Acti ve [id number] Problem Anxiety F41.9 Active 17612018 Problem Hypokalemia E87.6 Active 86343202 Problem Abnormal glucose R73.09 Active 102 554634 Problem Chronic pain due to trauma G89.21 Act juanis [id number] Problem Neuroforaminal stenosis of spine M99.89 Active [id number] Problem Neck pain M54.2 Active 14716039 Problem Essential hypertension I10 Active 01162452 Problem Mixed hyperlipidemia E78.2 Active [id number] ALLERGIES No Information ENCOUNTERS Encounter Location Date Diagnosis [place] [id number] [facility] [id number] [address] [place] [address] May, Neuroforaminal stenosis of s pine M99.89 [place] [address] [facility] [id number] [address] [place] [address] May, [facility] [address] [facility] [id number] [address] [place] [address] May, Congestion of nasal sinus R0 9.81 [facility] [address] [facility] [id number] [address] [place] [address] May, [facility] [address] [facility] [id number] [address] [place] [address] Apr, Neuroforaminal stenosis of s pine M99.89 [facility] [address] [facility] [id number] [address] [place] [address] Apr, Neuroforaminal stenosis of s pine M99.89 and Chronic pain due to trauma G89.21 [facility] [address] [id number] [address] [place] [address] Mar, UTI (urinary tract infection ) N39.0 [facility] [address] [id number] [address] [place] [address] Mar, Vertigo R42 [facility] [address] [id number] [address] [place] [address] Mar, Neuroforaminal stenosis of s jose M99.89 [facility] [address] [id number] [address] [place] [address] Feb, Extensor tendon disruption M 67.89 [facility] [address] [id number] [address] [place] [address] Feb, Neuroforaminal stenosis of ayla garcia M99.89 and High risk medication use Z79.899 [facility] [address] [id number] [address] [place] [address] Jan, Hypokalemia E87.6 [facility] [address] [id number] [address] [place] [address] Jan, Flank pain R10.9 and Acute r ight-sided low back pain without sciatica M54.5 [facility] [address] [id number] [address] [place] [address] Jan, Hypokalemia E87.6 [facility] [address] [id number] [address] [place] [address] Jan, [facility] [address] [id number] [address] [place] [address] Jan, URI, acute J06.9 [facility] [address] [id number] [address] [place] [address] Jan, Neuroforaminal stenosis of ayla garcia M99.89 [facility] [address] [id number] [address] [place] [address] 13 Dec, 2017 Lateral epicondylitis, right elbow M77.11 [place] [address] [address] 11 Dec, 2017 Allergic rhinitis due to monica rosalina, unspecified seasonality J30.1 and Allergic conjunctivitis of both eyes H10.13 [place] [address] [address] 10 Dec, 2017 Neuroforaminal stenosis of s pine M99.89 [place] [address] [address] 06 Dec, 2017 Mixed hyperlipidemia E78.2 [place] [address] [address] 05 Dec, 2017 Abnormal glucose R73.09 ; Ab normal renal ultrasound R93.429 ; Dysuria R30.0 ; Cystitis without hematuria N30.90 ; Hypokalemia E87.6 ; Mixed hyperlipidemia E78.2 and Hematuria, unspecified type R31.9 [place] [address] [address] Nov, Hypokalemia E87.6 ; Mixed hy perlipidemia E78.2 and Hematuria, unspecified type R31.9 [place] [address] [address] Nov, [place] [address] [address] Nov, Hypokalemia E87.6 [place] [address] [address] Nov, [place] [address] [address] Nov, Abnormal renal ultrasound R9 3.429 [place] [address] [address] Nov, Abnormal renal ultrasound R9 3.429 [place] [address] [id number] [address] [place] [address] 09 Nov, 2017 Hematuria, unspecified type R31.9 and Neuroforaminal stenosis of spine M99.89 [facility] [address] [id number] [address] [place] [address] Nov, Dysuria R30.0 [place] [address] [id number] [address] [place] [address] Oct, Lateral epicondylitis, right elbow M77.11 [place] [address] [id number] [address] [place] [address] Oct, Neuroforaminal stenosis of s jose M99.89 ; Visit for TB skin test Z11.1 and Essential hypertension I10 [place] [address] [id number] [address] [place] [address] Oct, [place] [address] [id number] [address] [place] [address] Oct, Neuroforaminal stenosis of s pine M99.89 [place] [address] [id number] [address] [place] [address] Oct, Visit for TB skin test Z11.1 [place] [address] [id number] [address] [place] [address] 05 Oct, 2017 Cystitis without hematuria N 30.90 [place] [address] [id number] [address] [place] [address] Sep, Screening breast examination Z12.39 [place] [address] [id number] [address] [place] [address] Sep, Dysuria R30.0 and Cystitis w ithout hematuria N30.90 [place] [address] [id number] [address] [place] [address] 14 Sep, 2017 Essential hypertension I10 a nd Neuroforaminal stenosis of spine M99.89 [place] [address] [id number] [address] [place] [address] Sep, Abnormal glucose R73.09 [place] [address] [id number] [address] [place] [address] August, Lateral epicondylitis, right elbow M77.11 [place] [address] [id number] [address] [place] [address] August, Screen for STD (sexually tra nsmitted disease) Z11.3 [place] [address] [id number] [address] [place] [address] August, Neuroforaminal stenosis of s jose M99.89 ; Mixed hyperlipidemia E78.2 ; Elevated fasting glucose R73.01 ; Screening mammogram, encounter for Z12.31 and Encounter for well woman exam without gynecological exam Z00.00 [place] [address] [id number] [address] [place] [address] August, Neuroforaminal stenosis of s pine M99.89 [place] [address] [id number] [address] [place] [address] August, Essential hypertension I10 ; Hypokalemia E87.6 and Mixed hyperlipidemia E78.2 [place] [address] [id number] [address] [place] [address] Jul, [place] [address] [id number] [address] [place] [address] Jul, Neuroforaminal stenosis of s pine M99.89 [place] [address] [id number] [address] [place] [address] Jul, Lateral epicondylitis, right elbow M77.11 [place] [address] [id number] [address] [place] [address] Jul, [place] [address] [id number] [address] [place] [address] Jun, High ankle sprain of right l ower extremity, initial encounter S93.431A [place] [address] [id number] [address] [place] [address] Jun, Essential hypertension I10 [facility] [address] [id number] [address] [place] [address] Jun, [facility] [address] [id number] [address] [place] [address] Jun, [facility] [address] [id number] [address] [place] [address] Jun, Neuroforaminal stenosis of s pine M99.89 [facility] [address] [id number] [address] [place] [address] Jun, Pain of right upper extremit y M79.601 and Essential hypertension I10 [place] [address] [id number] [address] [place] [address] Jun, [place] [address] [facility] [id number] [address] [place] [address] Jun, Dysuria R30.0 ; Acute cystit is with hematuria N30.01 and Screen for STD (sexually transmitted disease) Z11.3 [place] [address] [id number] [address] [place] [address] May, Chronic pain due to trauma G 89.21 [place] [address] [id number] [address] [place] [address] May, Essential hypertension I10 [facility] [address] [id number] [address] [place] [address] May, Neuroforaminal stenosis of s pine M99.89 [facility] [address] [id number] [address] [place] [address] Apr, Allergic reaction, initial e ncounter T78.40XA [facility] [address] [id number] [address] [place] [address] Apr, Low back pain, unspecified b ack pain laterality, unspecified chronicity, with sciatica presence unspecified M54.5 ; Acute cystitis with hematuria N30.01 ; Neuroforaminal stenosis of spine M99.89 ; Bilateral acute serous otitis media, recurrence not specified H65.03 ; Mixed hyperlipidemia E78.2 ; Essential hypertension I10 ; Immunization counseling Z71.89 and Encounter for immunization Z23 [facility] [address] [id number] [address] [place] [address] 08 Apr, 2017 Neck pain M54.2 [facility] [address] [id number] [address] [place] [address] 26 Mar, 2017 Neuroforaminal stenosis of s pine M99.89 [place] [address] [id number] [address] [place] [address] Mar, Pharyngitis due to other org anism J02.8 [facility] [address] [id number] [address] [place] [address] Feb, Neuroforaminal stenosis of s pine M99.89 [facility] [address] [id number] [address] [place] [address] 08 Feb, 2017 UTI (urinary tract infection ) N39.0 [facility] [address] [id number] [address] [place] [address] 07 Feb, 2017 Recent urinary tract infecti on Z87.440 ; Neuroforaminal stenosis of spine M99.89 ; Neck pain M54.2 ; Chronic pain due to trauma G89.21 and Recurrent UTI N39.0 [facility] [address] [id number] [address] [place] [address] 03 Feb, 2017 [facility] [address] [id number] [address] [place] [address] Jan, Neuroforaminal stenosis of s pine M99.89 [facility] [address] [id number] [address] [place] [address] 28 Dec, 2016 Neuroforaminal stenosis of s pine M99.89 [facility] [address] [id number] [address] [place] [address] 18 Dec, 2016 Acute seasonal allergic rhin itis due to pollen J30.1 [facility] [address] [id number] [address] [place] [address] 08 Dec, 2016 [facility] [address] [id number] [address] [place] [address] 08 Dec, 2016 Acute seasonal allergic rhin itis, unspecified trigger J30.2 ; Allergic conjunctivitis of both eyes H10.13 and Dysfunction of both eustachian tubes H69.83 [facility] [address] [id number] [address] [place] [address] 07 Dec, 2016 [place] [address] [id number] [address] [place] [address] Dec, Nevus D22.9 [place] [address] [facility] [id number] [address] [place] [address] Nov, Chronic pain due to trauma G 89.21 and Neuroforaminal stenosis of spine M99.89 [place] [address] [id number] [address] [place] [address] Nov, Neuroforaminal stenosis of s pine M99.89 ; Essential hypertension I10 ; Mixed hyperlipidemia E78.2 ; Hypokalemia E87.6 ; Neck pain M54.2 and Nevus D22.9 [place] [address] [id number] [address] [place] [address] Oct, Neuroforaminal stenosis of s pine M99.89 [facility] [address] [id number] [address] [place] [address] Sep, Neuroforaminal stenosis of s pine M99.89 [place] [address] [id number] [address] [place] [address] Sep, [place] [address] [id number] [address] [place] [address] August, [facility] [address] [facility] [id number] [address] [place] [address] August, Neck pain M54.2 and Neurofor aminal stenosis of spine M99.89 [facility] [address] [id number] [address] [place] [address] August, Routine gynecological examin ation Z01.419 and Screening breast examination Z12.39 [facility] [address] [id number] [address] [place] [address] Jul, [facility] [address] [id number] [address] [place] [address] Jul, [facility] [address] [id number] [address] [place] [address] Jul, Neuroforaminal stenosis of s pine M99.89 [facility] [address] [id number] [address] [place] [address] Jul, [facility] [address] [id number] [address] [place] [address] Jul, Neuroforaminal stenosis of l umbar 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 [facility] [address] [id number] [address] [place] [address] Jul, [facility] [address] [id number] [address] [place] [address] Jul, [facility] [address] [id number] [address] [place] [address] Jun, Neuroforaminal stenosis of s pine M99.89 [facility] [address] [id number] [address] [place] [address] Jun, Uterine leiomyoma, unspecifi ed location D25.9 and Allergic reaction caused by a drug, initial encounter T78.40XA [facility] [address] [id number] [address] [place] [address] Jun, [facility] [address] [id number] [address] [place] [address] May, UTI symptoms R39.9 and Pain of right sacroiliac joint M53.3 [place] [address] [id number] [address] [place] [address] May, Neuroforaminal stenosis of s jose M99.89 [place] [address] [id number] [address] [place] [address] May, [place] [address] [facility] [id number] [address] [place] [address] May, Acute mucoid otitis media of left ear H65.112 and Acute non- recurrent maxillary sinusitis J01.00 [place] [address] [facility] [id number] [address] [place] [address] May, Acute bacterial conjunctivit is of both eyes H10.33 ; Left arm pain M79.602 and Hypokalemia E87.6 [place] [address] [facility] [id number] [address] [place] [address] Apr, [place] [address] [id number] [address] [place] [address] Apr, Neuroforaminal stenosis of s pine M99.89 ; Neck pain M54.2 ; Chronic pain due to trauma G89.21 ; Mixed hyperlipidemia E78.2 ; Essential hypertension I10 and Hypokalemia E87.6 [place] [address] [facility] [id number] [address] [place] [address] Mar, Oral candidiasis B37.0 ; Nathaniel roforaminal stenosis of spine M99.89 ; Neck pain M54.2 and Chronic pain due to trauma G89.21 [place] [address] [facility] [id number] [address] [place] [address] Feb, [place] [address] [facility] [id number] [address] [place] [address] Feb, [place] [address] [facility] [id number] [address] [place] [address] Feb, UTI (urinary tract infection ) N39.0 [facility] [address] [id number] [address] [place] [address] 09 Feb, 2016 Dysuria R30.0 [facility] [address] [id number] [address] [place] [address] 08 Feb, 2016 Dysuria R30.0 [facility] [address] [id number] [address] [place] [address] Feb, Neuroforaminal stenosis of s pine M99.89 ; Neck pain M54.2 ; Essential hypertension I10 ; Chronic pain due to trauma G89.21 ; Dysuria R30.0 ; Abnormal MRI, shoulder R93.8 and Acute cystitis without hematuria N30.00 [facility] [address] [id number] [address] [place] [address] Jan, [facility] [address] [id number] [address] [place] [address] Jan, [facility] [address] [id number] [address] [place] [address] Jan, [facility] [address] [id number] [address] [place] [address] Jan, Abnormal MRI R93.8 [facility] [address] [id number] [address] [place] [address] 29 Dec, 2015 [facility] [address] [id number] [address] [place] [address] 15 Dec, 2015 Acute pain of left shoulder M25.512 [facility] [address] [id number] [address] [place] [address] 09 Dec, 2015 [facility] [address] [id number] [address] [place] [address] 08 Dec, 2015 [facility] [address] [id number] [address] [place] [address] 07 Dec, 2015 Acute pain of left shoulder M25.512 [facility] [address] [id number] [address] [place] [address] Nov, [facility] [address] [id number] [address] [place] [address] Nov, Neuroforaminal stenosis of s pine M99.89 ; Neck pain M54.2 ; Abnormal mammogram R92.8 ; Essential hypertension I10 and Chronic pain due to trauma G89.21 [facility] [address] [id number] [address] [place] [address] Nov, [facility] [address] [id number] [address] [place] [address] Oct, Acute stress disorder F43.0 [facility] [address] [id number] [address] [place] [address] Oct, [facility] [address] [id number] [address] [place] [address] Oct, [facility] [address] [id number] [address] [place] [address] Oct, [facility] [address] [id number] [address] [place] [address] Sep, [facility] [address] [id number] [address] [place] [address] August, [facility] [address] [id number] [address] [place] [address] Jul, Neuroforaminal stenosis of s pine M99.89 ; Neck pain M54.2 ; Abnormal mammogram R92.8 and Essential hypertension I10 [facility] [address] [id number] [address] [place] [address] Jul, [facility] [address] [id number] [address] [place] [address] Jul, [facility] [address] [id number] [address] [place] [address] Jul, Abnormal mammogram R92.8 [facility] [address] [id number] [address] [place] [phone] 08 Jul, 2015 [facility] [address] [facility] [id number] [address] [place] [address] Jul, UTI (urinary tract infection ) N39.0 [facility] [address] [facility] [id number] [address] [place] [address] Jul, Dysuria R30.0 [facility] [address] [facility] [id number] [address] [place] [address] Jun, [facility] [address] [facility] [id number] [address] [place] [address] Jun, [facility] [address] [place] [id number] [address] [place] [address] Jun, Hypokalemia E87.6 and Hematu martina R31.9 [place] [address] [place] [id number] [address] [place] [address] Jun, Hypokalemia E87.6 [facility] [address] [facility] [id number] [address] [place] [phone] Jun, [facility] [address] [place] [id number] [address] [place] [phone] Jun, Hypokalemia E87.6 [facility] [address] [place] [id number] [address] [place] [phone] Jun, Hypokalemia E87.6 [facility] [address] [place] [id number] [address] [place] [id number] 15 Jun, 2015 Neuroforaminal stenosis of s pine M99.89 ; Hypokalemia E87.6 ; Neck pain M54.2 ; Essential hypertension I10 ; Mixed hyperlipidemia E78.2 and Screening breast examination Z12.39 [place] [id number] [facility] [id number] [address] [place] [phone] 08 Jun, 2015 Dysuria R30.0 ; UTI (urinary tract infection) N39.0 and Hematuria R31.9 [place] [id number] [facility] [id number] [address] [place] [phone] May, [facility] [address] [place] [id number] [place] [phone] 18 May, 2015 High risk sexual behavior Z7 2.51 ; Hypokalemia E87.6 ; Neuroforaminal stenosis of spine M99.89 ; Neck pain M54.2 ; Essential hypertension I10 ; Mixed hyperlipidemia E78.2 ; STD exposure Z20.2 and Concern about STD in female without diagnosis Z71.1 [facility] [address] [facility] [id number] [address] [place] [phone] 16 May, 2015 Neuroforaminal stenosis of s pine M99.89 ; Neck pain M54.2 ; Hypokalemia E87.6 ; Essential hypertension I10 and Mixed hyperlipidemia E78.2 [facility] [address] [place] [id number] [address] [place] [phone] May, [facility] [address] [facility] [id number] [address] [place] [phone] 08 May, 2015 High risk sexual behavior Z7 2.51 ; STD exposure Z20.2 and Concern about STD in female without diagnosis Z71.1 [facility] [address] [facility] [id number] [address] [place] [phone] May, [facility] [address] [facility] [id number] [address] [place] [phone] Apr, Neuroforaminal stenosis of s pine M99.89 ; Mixed hyperlipidemia E78.2 ; Essential hypertension I10 and Hypokalemia E87.6 [facility] [address] [facility] [id number] [address] [place] [phone] Mar, [facility] [address] [facility] [id number] [address] [place] [phone] Mar, Hypokalemia E87.6 [facility] [address] [facility] [id number] [address] [place] [address] Mar, Neuroforaminal stenosis of s pine M99.89 ; Mixed hyperlipidemia E78.2 ; Neck pain M54.2 ; Essential hypertension I10 ; Abnormal fasting glucose R73.09 ; Hypokalemia E87.6 and Constipation K59.00 [facility] [address] [facility] [id number] [address] [place] [address] Feb, Neuroforaminal stenosis of s pine M99.89 ; Mixed hyperlipidemia E78.2 ; Neck pain M54.2 ; Essential hypertension I10 ; Abnormal fasting glucose R73.09 ; Hypokalemia E87.6 and Constipation K59.00 [facility] [address] [facility] [id number] [address] [place] [address] Feb, Elevated fasting blood sugar R73.01 [facility] [address] [facility] [id number] [address] [place] [address] Feb, Elevated fasting blood sugar R73.01 [place] [address] [facility] [id number] [address] [place] [address] Feb, Hair loss L65.9 [facility] [place] [address] [facility] [id number] [address] [place] [address] Feb, Sinusitis J32.9 ; Essential hypertension I10 and Hair loss L65.9 [facility] [address] [facility] [id number] [address] [place] [address] Jan, [facility] [address] [facility] [id number] [address] [place] [address] Jan, Essential hypertension I10 ; Neuroforaminal stenosis of spine M99.89 ; Neck pain M54.2 ; Mixed hyperlipidemia E78.2 and Anxiety F41.9 [facility] [address] [facility] [id number] [address] [place] [address] Jan, [facility] [address] [facility] [id number] [address] [place] [address] Jan, Mixed hyperlipidemia E78.2 ; Essential (primary) hypertension I10 ; Strain of muscle, fascia and tendon at neck level, subsequent encounter S16.1XXD and Tension-type headache, unspecified, not intractable G44.209 [facility] [address] [id number] [address] [place] [address] Dec, Lumbar back pain 724.2 and N euroforaminal stenosis of spine 724.00 [facility] [address] [id number] [address] [place] [address] Nov, [facility] [address] [id number] [address] [place] [address] Nov, Lumbar back pain 724.2 and N euroforaminal stenosis of spine 724.00 [place] [address] [facility] [id number] [address] [place] [address] Nov, Edema 782.3 ; Lumbar back pa in 724.2 ; Essential hypertension, benign 401.1 ; Hyperlipemia 272.4 ; Neuroforaminal stenosis of spine 724.00 and Post-concussion headache 339.20 [facility] [address] [id number] [address] [place] [address] Nov, [facility] [address] [facility] [id number] [address] [place] [address] Nov, [facility] [address] [facility] [id number] [address] [place] [address] Oct, Essential hypertension, sheridan gn 401.1 [facility] [address] [facility] [id number] [address] [place] [address] Oct, Edema 782.3 ; Lumbar back pa in 724.2 ; Essential hypertension, benign 401.1 ; Hyperlipemia 272.4 ; Neuroforaminal stenosis of spine 724.00 and Post-concussion headache 339.20 [facility] [address] [facility] [id number] [address] [place] [address] Oct, [facility] [address] [facility] [id number] [address] [place] [address] Oct, Edema 782.3 [facility] [address] [id number] [address] [place] [address] Oct, Lumbar back pain 724.2 [facility] [address] [id number] [address] [place] [address] Oct, Cervicalgia 723.1 ; Lumbar b ack pain 724.2 and High risk medication use V58.69 [facility] [address] [id number] [address] [place] [address] Sep, [facility] [address] [id number] [address] [place] [address] Sep, Lumbar strain 847.2 [facility] [address] [facility] [id number] [address] [place] [address] August, Edema 782.3 and Eustachian t ube dysfunction 381.81 [facility] [address] [facility] [id number] [address] [place] [address] August, [facility] [address] [id number] [address] [place] [address] August, Eustachian tube dysfunction 381.81 [facility] [address] [id number] [address] [place] [address] Jul, Otalgia 388.70 and Otitis me jonathon 382.9 [facility] [address] [id number] [address] [place] [address] Jul, [facility] [address] [id number] [address] [place] [address] Jul, [facility] [address] [id number] [address] [place] [address] Jul, [facility] [address] [facility] [id number] [address] [place] [address] Jul, [facility] [address] [facility] [id number] [address] [place] [address] Jul, [facility] [address] [id number] [address] [place] [address], [place] [address] Jun, [facility] [address] [id number] [address] [place] [address], [place] [address] 27 Jun, 2014 [facility] [address] [id number] [address] [place] [address], [place] [address] Jun, [facility] [address] [id number] [address] [place] [address], [place] [address] May, 2014 [facility] [address] [id number] [address] [place] [address], [place] [address] May, 2014 [facility] [address] [id number] [address] [place] [address], [place] [address] May, 2014 [facility] [address] [id number] [address] [place] [address], [place] [address] May, 2014 [facility] [address] [id number] [address] [place] [address], [place] [address] May, 2014 [facility] [address] [id number] [address] [place] [address], [place] [address] May, [facility] [address] [id number] [address] [place] [address], [place] [address] May, [facility] [address] [id number] [address] [place] [address], [place] [address] May, [facility] [address] [id number] [address] [place] [address], [place] [address] May, [facility] [address] [id number] [address] [place] [address], [place] [address] May, [facility] [address] [id number] [address] [place] [address], [place] [address] Apr, [facility] [address] [id number] [address] [place] [address], [place] [address] Apr, [facility] [address] [id number] [address] [place] [address] Apr, [facility] [address] [id number] [address] [place] [address], [place] [address] Apr, [facility] [address] [id number] [address] [place] [address], [place] [address] Apr, [facility] [address] [id number] [address] [place] [address], [place] [address] Apr, [facility] [address] [id number] [address] [place] [address], [place] [address] Apr, [facility] [address] [id number] [address] [place] [address], [place] [address] Apr, [facility] [address] [id number] [address] [place] [address], [place] [address] Apr, [facility] [address] [id number] [address] [place] [address], [place] [address] Apr, [facility] [address] [id number] [address] [place] [address], [place] [address] Apr, [facility] [address] [id number] [address] [place] [address], [place] [address] Apr, [facility] [address] [id number] [address] [place] [address], [place] [address] Apr, [facility] [address] [id number] [address] [place] [address], [place] [address] Apr, [facility] [address] [id number] [address] [place] [address], [place] [address] Apr, [facility] [address] [id number] [address] [place] [address], [place] [address] Mar, [facility] [address] [id number] [address] [place] [address], [place] [address] Mar, [facility] [address] [id number] [address] [place] [address], [place] [address] Mar, [facility] [address] [id number] [address] [place] [address], [place] [address] Mar, [facility] [address] [id number] [address] [place] [address], [place] [address] Feb, [facility] [address] [id number] [address] [place] [address], [place] [address] Feb, [facility] [address] [id number] [address] [place] [address], [place] [address] Feb, [facility] [address] [id number] [address] [place] [address], [place] [address] Feb, [facility] [address] [id number] [address] [place] [address], [place] [address] Jan, [facility] [address] [id number] [address] [place] [address], [place] [address] Jan, [facility] [address] [id number] [address] [place] [address], [place] [address] Jan, [facility] [address] [id number] [address] [place] [address], [place] [address] Jan, [facility] [address] [id number] [address] [place] [address], [place] [address] Jan, [facility] [address] [id number] [address] [place] [address], [place] [address] Jan, [facility] [address] [id number] [address] [place] [address], [place] [address] Jan, [facility] [address] [id number] [address] [place] [address], [place] [address] Jan, [facility] [address] [id number] [address] [place] [address], [place] [address] Dec, [facility] [address] [id number] [address] [place] [address], [place] [address] Dec, [facility] [address] [id number] [address] [place] [address], [place] [address] Dec, [facility] [address] [id number] [address] [place] [address], [place] [address] Dec, 2013 [facility] [address] [id number] [address] [place] [address], [place] [address] Oct, 2013 [facility] [address] [id number] [address] [place] [address], [place] [address] Oct, 2013 [facility] [address] [id number] [address] [place] [address], [place] [address] Oct, 2013 [facility] [address] [id number] [address] [place] [address], [place] [address] Oct, 2013 [facility] [address] [id number] [address] [place] [address], [place] [address] Oct, 2013 [facility] [address] [id number] [address] [place] [address], [place] [address] Oct, 2013 [facility] [address] [id number] [address] [place] [address], [place] [address] Oct, 2013 [facility] [address] [id number] [address] [place] [address], [place] [address] Oct, [facility] [address] [id number] [address] [place] [address], [place] [address] Sep, [facility] [address] [id number] [address] [place] [address], [place] [address] Sep, [facility] [address] [id number] [address] [place] [address], [place] [address] Sep, [facility] [address] [id number] [address] [place] [address], [place] [address] Sep, [facility] [address] [id number] [address] [place] [address], [place] [address] Sep, [facility] [address] [id number] [address] [place] [address], [place] [address] Sep, [facility] [address] [id number] [address] [place] [address], [place] [address] Sep, [facility] [address] [id number] [address] [place] [address], [place] [address] Sep, [facility] [address] [id number] [address] [place] [address], [place] [address] Sep, [facility] [address] [id number] [address] [place] [address], [place] [address] Sep, [facility] [address] [id number] [address] [place] [address], [place] [address] August, [facility] [address] [id number] [address] [place] [address], [place] [address] August, [facility] [address] [id number] [address] [place] [address], [place] [address] August, [facility] [address] [id number] [address] [place] [address], [place] [address] August, [facility] [address] [id number] [address] [place] [address], [place] [address] August, [facility] [address] [id number] [address] [place] [address], [place] [address] August, [facility] [address] [id number] [address] [place] [address], [place] [address] August, [facility] [address] [id number] [address] [place] [address], [place] [address] August, [facility] [address] [id number] [address] [place] [address], [place] [address] August, [facility] [address] [id number] [address] [place] [address], [place] [address] August, [facility] [address] [id number] [address] [place] [address], [place] [address] August, [facility] [address] [id number] [address] [place] [address], [place] [address] August, [facility] [address] [id number] [address] [place] [address], [place] [address] Jul, [facility] [address] [id number] [facility] [place] [address] Jul, [facility] [address] [id number] [address] [place] [address], [place] [address] Jul, [facility] [address] [id number] [address] [place] [address], [place] [address] Jul, [facility] [address] [id number] [address] [place] [address], [place] [address] Jul, [facility] [address] [id number] [address] [place] [address], [place] [address] Jul, [facility] [address] [id number] [address] [place] [address], [place] [address] Jun, [facility] [address] [id number] [address] [place] [address], [place] [address] Jun, [facility] [address] [id number] [address] [place] [address], [place] [address] May, [facility] [address] [id number] [address] [place] [address], [place] [address] May, [facility] [address] [id number] [address] [place] [address], [place] [address] Apr, [facility] [address] [id number] [address] [place] [address], [place] [address] Apr, [facility] [address] [id number] [address] [place] [address], [place] [address] Apr, [facility] [address] [id number] [address] [place] [address], [place] [address] Apr, [facility] [address] [id number] [address] [place] [address], [place] [address] Apr, [facility] [address] [id number] [address] [place] [address] [address] Apr, [facility] [address] [id number] [address] [place] [address], [place] [address] Apr, [facility] [address] [id number] [address] [place] [address], [place] [address] Apr, [facility] [address] [id number] [address] [place] [address], [place] [address] Apr, [facility] [address] [id number] [address] [place] [address], [place] [address] Apr, [facility] [address] [id number] [address] [place] [address], [place] [address] Apr, [facility] [address] [id number] [address] [place] [address], [place] [address] Apr, [facility] [address] [id number] [address] [place] [address], [place] [address] Apr, [facility] [address] [id number] [address] [place] [address], [place] [address] Mar, [facility] [address] [id number] [address] [place] [address], [place] [address] Mar, [facility] [address] [id number] [address] [place] [address], [place] [address] Mar, [facility] [address] [id number] [address] [place] [address], [place] [address] Mar, [facility] [address] [id number] [address] [place] [address] Feb, [facility] [address] [id number] [address] [place] [address], [place] [address] Feb, [facility] [address] [id number] [address] [place] [address], [place] [address] Feb, [facility] [address] [id number] [address] [place] [address], [place] [address] Feb, [facility] [address] [id number] [address] [place] [address], [place] [address] 14 Jan, 2013 [facility] [address] [id number] [address] [place] [address], [place] [address] 14 Jan, 2013 [facility] [address] [id number] [address] [place] [address], [place] [address] 11 Jan, 2013 [facility] [address] [id number] [address] [place] [address], [place] [address] 11 Jan, 2013 [facility] [address] [id number] [address] [place] [address], [place] [address] 10 Jan, 2012 [facility] [address] [id number] [address] [place] [address], [place] [address] 10 Jan, 2013 [facility] [address] [id number] [address] [place] [address], [place] [address] 09 Jan, 2013 [facility] [address] [id number] [address] [place] [address], [place] [address] 09 Jan, 2013 [facility] [address] [id number] [address] [place] [address], [place] [address] Jan, [facility] [address] [id number] [address] [place] [address], [place] [address] 26 Dec, 2012 [facility] [address] [id number] [address] [place] [address], [place] [address] 16 Dec, 2012 [facility] [address] [id number] [address] [place] [address], [place] [address] 16 Dec, 2012 [facility] [address] [id number] [address] [place] [address], [place] [address] 13 Dec, 2012 [facility] [address] [id number] [address] [place] [address], [place] [address] 17 Nov, 2012 [facility] [address] [id number] [address] [place] [address], [place] [address] 17 Nov, 2012 [facility] [address] [id number] [address] [place] [address], [place] [address] Nov, [facility] [address] [id number] [address] [place] [address], [place] [address] Nov, [facility] [address] [id number] [address] [place] [address], [place] [address] Oct, [facility] [address] [id number] [address] [place] [address], [place] [address] Sep, [facility] [address] [id number] [address] [place] [address], [place] [address] August, [facility] [address] [id number] [address] [place] [address], [place] [address] August, [facility] [address] [id number] [address] [place] [address], [place] [address] August, [facility] [address] [id number] [address] [place] [address], [place] [address] August, [facility] [address] [id number] [address] [place] [address], [place] [address] August, [facility] [address] [id number] [address] [place] [address], [place] [address] August, [facility] [address] [id number] [address] [place] [address], [place] [address] August, [facility] [address] [id number] [address] [place] [address], [place] [address] August, [facility] [address] [id number] [address] [place] [address], [place] [address] August, [facility] [address] [id number] [address] [place] [address], [place] [address] August, [facility] [address] [id number] [address] [place] [address], [place] [address] August, [facility] [address] [id number] [address] [place] [address], [place] [address] August, [facility] [address] [id number] [address] [place] [address], [place] [address] Jul, [facility] [address] [id number] [address] [place] [address], [place] [address] Jul, [facility] [address] [id number] [address] [place] [address], [place] [address] Jul, [facility] [address] [id number] [address] [place] [address], [place] [address] Jul, [facility] [address] [id number] [address] [place] [address], [place] [address] Jul, [facility] [address] [id number] [address] [place] [address], [place] [address] Jul, [facility] [address] [id number] [address] [place] [address], [place] [address] Jul, [facility] [address] [id number] [address] [place] [address], [place] [address] Jul, [facility] [address] [id number] [address] [place] [address], [place] [address] Jul, [facility] [address] [id number] [address] [place] [address], [place] [address] Jul, [facility] [address] [id number] [address] [place] [address], [place] [address] Jul, [facility] [address] [id number] [address] [place] [address], [place] [address] Jun, [facility] [address] [id number] [address] [place] [address], [place] [address] Jun, [facility] [address] [id number] [address] [place] [address], [place] [address] Jun, [facility] [address] [id number] [address] [place] [address], [place] [address] Jun, [facility] [address] [id number] [address] [place] [address], [place] [address] May, [facility] [address] [id number] [address] [place] [address], [place] [address] 14 May, 2012 [facility] [address] [id number] [address] [place] [address], [place] [address] 05 May, 2012 [facility] [address] [id number] [address] [place] [address], [place] [address] 04 May, 2012 [facility] [address] [id number] [address] [place] [address], [place] [address] 04 May, 2012 [facility] [address] [id number] [address] [place] [address], [place] [address] May, [facility] [address] [id number] [address] [place] [address], [place] [address] Apr, [facility] [address] [id number] [address] [place] [address], [place] [address] Apr, [facility] [address] [id number] [address] [place] [address], [place] [address] 30 Apr, 2012 [facility] [address] [id number] [address] [place] [address], [place] [address] Apr, [facility] [address] [id number] [address] [place] [address], [place] [address] 15 Mar, 2012 [facility] [address] [id number] [address] [place] [address], [place] [address] 14 Mar, 2012 [facility] [address] [id number] [address] [place] [address], [place] [address] 14 Mar, 2012 [facility] [address] [id number] [address] [place] [address], [place] [address] 14 Mar, 2012 [facility] [address] [id number] [address] [place] [address], [place] [address] 14 Mar, 2012 [facility] [address] [id number] [address] [place] [address], [place] [address] 06 Mar, 2012 [facility] [address] [id number] [address] [place] [address], [place] [address] Mar, [facility] [address] [id number] [address] [place] [address], [place] [address] Feb, [facility] [address] [id number] [address] [place] [address], [place] [address] Feb, [facility] [address] [id number] [address] [place] [address], [place] [address] Feb, [facility] [address] [id number] [address] [place] [address], [place] [address] Feb, [facility] [address] [id number] [address] [place] [address], [place] [address] Jan, [facility] [address] [id number] [address] [place] [address], [place] [address] Jan, [facility] [address] [id number] [address] [place] [address], [place] [address] Jan, [facility] [address] [id number] [address] [place] [address], [place] [address] Jan, [facility] [address] [id number] [address] [place] [address], [place] [address] Jan, [facility] [address] [id number] [address] [place] [address], [place] [address] Jan, [facility] [address] [id number] [address] [place] [address], [place] [address] Dec, [facility] [address] [id number] [address] [place] [address] Dec, [facility] [address] [id number] [address] [place] [address], [place] [address] Nov, [facility] [address] [id number] [address] [place] [address], [place] [address] Sep, [facility] [address] [id number] [address] [place] [address], [place] [address] August, [facility] [address] [id number] [address] [place] [address], [place] [address] August, [facility] [address] [id number] [address] [place] [address], [place] [address] August, [facility] [address] [id number] [address] [place] [address], [place] [address] August, [facility] [address] [id number] [address] [place] [address], [place] [address] August, [facility] [address] [id number] [address] [place] [address], [place] [address] Jun, [facility] [address] [id number] [address] [place] [address], [place] [address] Jun, [facility] [address] [id number] [address] [place] [address], [place] [address] Apr, [facility] [address] [id number] [address] [place] [address], [place] [address] Apr, [facility] [address] [id number] [address] [place] [address], [place] [address] Mar, [facility] [address] [id number] [address] [place] [address], [place] [address] 22 Feb, 2011 [facility] [address] [id number] [address] [place] [address], [place] [address] 14 Feb, 2011 [facility] [address] [id number] [address] [place] [address], [place] [address] 14 Feb, 2011 [facility] [address] [id number] [address] [place] [address], [place] [address] 17 Jan, 2011 [facility] [address] [id number] [address] [place] [address], [place] [address] 15 Jan, 2011 [facility] [address] [id number] [address] [place] [address], [place] [address] 15 Jan, 2011 [facility] [address] [id number] [address] [place] [address], [place] [address] 14 Jan, 2011 [facility] [address] [facility] [id number] [address] [place] [address] 15 May, 2010 [facility] [address] [facility] [id number] [address] [place] [address] Mar, [facility] [address] [facility] [id number] [address] [place] [address] Oct, [facility] [address] [facility] [id number] [address] [place] [address] Sep, [facility] [address] [facility] [id number] [address] [place] [address] Mar, [facility] [address] [facility] [id number] [address] [place] [address] Jan, [facility] [address] [facility] [id number] [address] [place] [address] Jan, [facility] [address] [facility] [id number] [address] [place] [address] May, IMMUNIZATIONS No Known Immunizations SOCIAL HISTORY Never Assessed REASON FOR VISIT EMR-[facility] PLAN OF CARE VITAL SIGNS MEDICATIONS Unknown [...]
--- OUTSIDE RECORDS SUMMARY | 2019-11-23 06:09 | XMS REPORT ---
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 Name Role Phone PACHECO Fuchs Unavailable PROBLEMS Type Condition ICD9-CM Code ZNF09-MO Code Onset Dates Condition S tatus SNOMED Code Problem Hematuria, unspecified type R31.9 Ac tive 39460513 Problem Abnormal glucose R73.09 Active 102 083461 Problem Anxiety F41.9 Active 67366591 Problem Neck pain M54.2 Active 95611793 Problem Essential hypertension I10 Active 87445389 Problem Rhinosinusitis J32.9 Active 72802 4004 Problem Neuroforaminal stenosis of spine M99.89 Active 604621541358 Problem Other chronic pain G89.29 Active 8 5854990 Problem Abnormal renal ultrasound R93.429 Acti ve [id number] Problem Mixed hyperlipidemia E78.2 Active 76646154 Problem Hypokalemia E87.6 Active 47081062 Problem Chronic pain due to trauma G89.21 Act juanis 868280860 Problem Seasonal allergies J30.2 Active 4 [id number] ALLERGIES No Information ENCOUNTERS Encounter Location Date Diagnosis [facility] [address] [facility] [id number] [address] [place] [address] August, [facility] [address] [facility] [id number] [address] [place] [address] August, Low back pain M54.5 ; Other chronic pain G89.29 and Dysuria R30.0 [facility] [address] [facility] [id number] [address] [place] [address] 04 Aug, 2019 [facility] [address] [facility] [id number] [address] [place] [address] Jul, Neuroforaminal stenosis of s pine M99.89 [place] [address] [facility] [id number] [address] [place] [address] Jul, Allergic conjunctivitis of b oth eyes H10.13 [place] [address] [facility] [id number] [address] [place] [address] 27 Jun, 2019 Hypokalemia E87.6 [place] [address] [facility] [id number] [address] [place] [address] Jun, [place] [address] [place] [id number] [place] [address] 25 Jun, 2019 Neuroforaminal stenosis of s pine M99.89 [place] [address] [place] [id number] [place] [address] 19 Jun, 2019 Lateral epicondylitis, left elbow M77.12 and Medial epicondylitis, left elbow M77.02 [place] [address] [place] [id number] [place] [address] 16 Jun, 2019 Foraminal stenosis of lumbar region M48.061 ; Segmental dysfunction of thoracic region M99.02 ; Segmental dysfunction of lumbar region M99.03 and Segmental dysfunction of sacral region M99.04 [place] [address] [place] [id number] [address] [place] [address] May, Left elbow pain M25.522 [place] [address] [place] [id number] [address] [place] [address] May, [place] [address] [place] [id number] [address] [place] [address] May, Left elbow pain M25.522 [place] [address] [facility] [id number] [address] [place] [address] May, Neuroforaminal stenosis of s pine M99.89 [place] [address] [facility] [id number] [address] [place] [address] May, Rhinosinusitis J32.9 ; Left elbow pain M25.522 and Neck pain M54.2 [facility] [address] [id number] [address] [place] [phone] 14 May, 2019 Lateral epicondylitis of lef t elbow M77.12 [facility] [address] [id number] [address] [place] [address] Apr, Neuroforaminal stenosis of s pine M99.89 [facility] [address] [id number] [address] [place] [address] Apr, Essential hypertension I10 a nd Mixed hyperlipidemia E78.2 [facility] [address] [id number] [address] [place] [address] Mar, Neuroforaminal stenosis of s pine M99.89 [facility] [address] [id number] [address] [place] [address] Mar, Epicondylitis, lateral, left M77.12 [facility] [address] [id number] [address] [place] [address] Mar, [facility] [address] [id number] [address] [place] [address] Mar, Neuroforaminal stenosis of s pine M99.89 [facility] [address] [id number] [address] [place] [address] Feb, Neuroforaminal stenosis of s pine M99.89 ; Essential hypertension I10 ; Mixed hyperlipidemia E78.2 ; Encounter for immunization Z23 and Seasonal allergies J30.2 [facility] [address] [id number] [address] [place] [address] Jan, Neuroforaminal stenosis of s pine M99.89 [facility] [address] [id number] [address] [place] [address] Dec, Neuroforaminal stenosis of s pine M99.89 [facility] [address] [id number] [address] [place] [address] Dec, Neuroforaminal stenosis of s pine M99.89 [facility] [address] [id number] [address] [place] [address] Nov, [facility] [address] [id number] [address] [place] [address] Nov, Neuroforaminal stenosis of s pine M99.89 [facility] [address] [id number] [address] [place] [address] Nov, Acute non-recurrent maxillar y sinusitis J01.00 [facility] [address] [id number] [address] [place] [address] Oct, Hypokalemia E87.6 [facility] [address] [id number] [address] [place] [address] Oct, Wasp sting, undetermined int ent, initial encounter T63.464A and Cellulitis of left lower extremity L03.116 [place] [address] [id number] [address] [place] [address] Oct, Neuroforaminal stenosis of s pine M99.89 [place] [address] [id number] [address] [place] [address] Sep, [place] [address] [id number] [address] [place] [address] Sep, [facility] [address] [id number] [address] [place] [address] Sep, Routine screening for STI (s exually transmitted infection) Z11.3 [place] [id number] [id number] [address] [place] [address] 14 Sep, 2018 Routine screening for STI (s exually transmitted infection) Z11.3 ; Well woman exam with routine gynecological exam Z01.419 and Breast cancer screening Z12.39 [place] [address] [id number] [address] [place] [address] Sep, Neuroforaminal stenosis of s pine M99.89 [place] [address] [id number] [address] [place] [address] August, Neuroforaminal stenosis of s pine M99.89 [facility] [address] [id number] [address] [place] [address] August, Neuroforaminal stenosis of s pine M99.89 ; Chronic pain due to trauma G89.21 and Mixed hyperlipidemia E78.2 [facility] [address] [id number] [address] [place] [address] Jul, Viral upper respiratory illn ess J06.9 and Acute non-recurrent frontal sinusitis J01.10 [facility] [address] [id number] [address] [place] [address] Jul, Congestion of nasal sinus R0 9.81 [facility] [address] [id number] [address] [place] [address] Jul, Neuroforaminal stenosis of s pine M99.89 and Essential hypertension I10 [facility] [address] [id number] [address] [place] [address] May, Neuroforaminal stenosis of s pine M99.89 [facility] [address] [id number] [address] [place] [address] May, [facility] [address] [id number] [address] [place] [address] May, Congestion of nasal sinus R0 9.81 [facility] [address] [id number] [address] [place] [address] May, [facility] [address] [id number] [address] [place] [address] Apr, Neuroforaminal stenosis of s pine M99.89 [facility] [address] [id number] [address] [place] [address] Apr, Neuroforaminal stenosis of s pine M99.89 and Chronic pain due to trauma G89.21 [facility] [address] [id number] [address] [place] [address] Mar, UTI (urinary tract infection ) N39.0 [facility] [address] [id number] [address] [place] [address] Mar, Vertigo R42 [facility] [address] [id number] [address] [place] [address] Mar, Neuroforaminal stenosis of s jose M99.89 [facility] [address] [id number] [address] [place] [address] Feb, Extensor tendon disruption M 67.89 [facility] [address] [id number] [address] [place] [address] Feb, Neuroforaminal stenosis of ayla garcia M99.89 and High risk medication use Z79.899 [facility] [address] [id number] [address] [place] [address] Jan, Hypokalemia E87.6 [facility] [address] [id number] [address] [place] [address] Jan, Flank pain R10.9 and Acute r ight-sided low back pain without sciatica M54.5 [facility] [address] [id number] [address] [place] [address] Jan, Hypokalemia E87.6 [facility] [address] [id number] [address] [place] [address] Jan, [facility] [address] [id number] [address] [place] [address] Jan, URI, acute J06.9 [facility] [address] [id number] [address] [place] [address] 05 Jan, 2018 Neuroforaminal stenosis of ayla garcia M99.89 [facility] [address] [id number] [address] [place] [address] 13 Dec, 2017 Lateral epicondylitis, right elbow M77.11 [facility] [address] [address] 11 Dec, 2017 Allergic rhinitis due to monica rosalina, unspecified seasonality J30.1 and Allergic conjunctivitis of both eyes H10.13 [place] [address] [address] 10 Dec, 2017 Neuroforaminal stenosis of s pine M99.89 [place] [address] [place] [phone] 06 Dec, 2017 Mixed hyperlipidemia E78.2 [place] [address] [address] 05 Dec, 2017 Abnormal glucose R73.09 ; Ab normal renal ultrasound R93.429 ; Dysuria R30.0 ; Cystitis without hematuria N30.90 ; Hypokalemia E87.6 ; Mixed hyperlipidemia E78.2 and Hematuria, unspecified type R31.9 [place] [address] [address] Nov, Hypokalemia E87.6 ; Mixed hy perlipidemia E78.2 and Hematuria, unspecified type R31.9 [place] [address] [address] Nov, [place] [address] [address] Nov, Hypokalemia E87.6 [place] [address] [address] Nov, [place] [address] [address] Nov, Abnormal renal ultrasound R9 3.429 [place] [address] [address] Nov, Abnormal renal ultrasound R9 3.429 [place] [address] [address] Nov, Hematuria, unspecified type R31.9 and Neuroforaminal stenosis of spine M99.89 [facility] [address] [id number] [address] [place] [address] Nov, Dysuria R30.0 [facility] [address] [id number] [address] [place] [address] Oct, Lateral epicondylitis, right elbow M77.11 [facility] [address] [id number] [address] [place] [address] Oct, Neuroforaminal stenosis of s pine M99.89 ; Visit for TB skin test Z11.1 and Essential hypertension I10 [place] [address] [id number] [address] [place] [address] 16 Oct, 2017 [place] [address] [id number] [address] [place] [address] Oct, Neuroforaminal stenosis of s pine M99.89 [place] [address] [id number] [address] [place] [address] Oct, Visit for TB skin test Z11.1 [place] [address] [id number] [address] [place] [address] 05 Oct, 2017 Cystitis without hematuria N 30.90 [place] [address] [id number] [address] [place] [address] Sep, Screening breast examination Z12.39 [facility] [address] [id number] [address] [place] [address] Sep, Dysuria R30.0 and Cystitis w ithout hematuria N30.90 [place] [address] [id number] [address] [place] [address] 14 Sep, 2017 Essential hypertension I10 a nd Neuroforaminal stenosis of spine M99.89 [place] [address] [id number] [address] [place] [address] 04 Sep, 2017 Abnormal glucose R73.09 [place] [address] [id number] [address] [place] [address] August, Lateral epicondylitis, right elbow M77.11 [facility] [address] [id number] [address] [place] [address] August, Screen for STD (sexually tra nsmitted disease) Z11.3 [facility] [address] [id number] [address] [place] [address] August, Neuroforaminal stenosis of s jose M99.89 ; Mixed hyperlipidemia E78.2 ; Elevated fasting glucose R73.01 ; Screening mammogram, encounter for Z12.31 and Encounter for well woman exam without gynecological exam Z00.00 [place] [address] [id number] [address] [place] [address] August, Neuroforaminal stenosis of s pine M99.89 [place] [address] [id number] [address] [place] [address] August, Essential hypertension I10 ; Hypokalemia E87.6 and Mixed hyperlipidemia E78.2 [place] [address] [id number] [address] [place] [address] Jul, [place] [address] [id number] [address] [place] [address] Jul, Neuroforaminal stenosis of s jose M99.89 [facility] [address] [id number] [address] [place] [address] Jul, Lateral epicondylitis, right elbow M77.11 [facility] [address] [id number] [address] [place] [address] Jul, [place] [address] [facility] [id number] [address] [place] [address] Jun, High ankle sprain of right l ower extremity, initial encounter S93.431A [place] [address] [facility] [id number] [address] [place] [address] Jun, Essential hypertension I10 [place] [address] [facility] [id number] [address] [place] [address] Jun, [place] [address] [facility] [id number] [address] [place] [address] Jun, [place] [address] [facility] [id number] [address] [place] [address] Jun, Neuroforaminal stenosis of s pine M99.89 [place] [address] [place] [id number] [address] [place] [address] Jun, Pain of right upper extremit y M79.601 and Essential hypertension I10 [place] [address] [place] [id number] [address] [place] [address] Jun, [place] [address] [place] [id number] [place] [address] Jun, Dysuria R30.0 ; Acute cystit is with hematuria N30.01 and Screen for STD (sexually transmitted disease) Z11.3 [place] [address] [place] [id number] [address] [place] [address] May, Chronic pain due to trauma G 89.21 [place] [address] [facility] [id number] [address] [place] [address] May, Essential hypertension I10 [place] [address] [place] [id number] [address] [place] [address] May, Neuroforaminal stenosis of s pine M99.89 [place] [address] [facility] [id number] [address] [place] [address] Apr, Allergic reaction, initial e ncounter T78.40XA [place] [address] [facility] [id number] [address] [place] [address] Apr, Low back pain, unspecified b ack pain laterality, unspecified chronicity, with sciatica presence unspecified M54.5 ; Acute cystitis with hematuria N30.01 ; Neuroforaminal stenosis of spine M99.89 ; Bilateral acute serous otitis media, recurrence not specified H65.03 ; Mixed hyperlipidemia E78.2 ; Essential hypertension I10 ; Immunization counseling Z71.89 and Encounter for immunization Z23 [facility] [address] [facility] [id number] [address] [place] [address] 08 Apr, 2017 Neck pain M54.2 [facility] [address] [facility] [id number] [address] [place] [address] Mar, Neuroforaminal stenosis of s pine M99.89 [facility] [address] [facility] [id number] [address] [place] [address] Mar, Pharyngitis due to other org anism J02.8 [place] [address] [facility] [id number] [address] [place] [address] Feb, Neuroforaminal stenosis of s pine M99.89 [place] [address] [facility] [id number] [address] [place] [address] Feb, UTI (urinary tract infection ) N39.0 [facility] [address] [id number] [address] [place] [address] Feb, Recent urinary tract infecti on Z87.440 ; Neuroforaminal stenosis of spine M99.89 ; Neck pain M54.2 ; Chronic pain due to trauma G89.21 and Recurrent UTI N39.0 [facility] [address] [facility] [id number] [address] [place] [address] Feb, [facility] [address] [facility] [id number] [address] [place] [address] Jan, Neuroforaminal stenosis of s pine M99.89 [facility] [address] [id number] [address] [place] [address] 28 Dec, 2016 Neuroforaminal stenosis of s pine M99.89 [facility] [address] [facility] [id number] [address] [place] [address] 18 Dec, 2016 Acute seasonal allergic rhin itis due to pollen J30.1 [facility] [address] [facility] [id number] [address] [place] [address] 08 Dec, 2016 [facility] [address] [facility] [id number] [address] [place] [address] Dec, Acute seasonal allergic rhin itis, unspecified trigger J30.2 ; Allergic conjunctivitis of both eyes H10.13 and Dysfunction of both eustachian tubes H69.83 [place] [address] [facility] [id number] [address] [place] [address] Dec, [place] [address] [facility] [id number] [address] [place] [address] Dec, Nevus D22.9 [place] [address] [facility] [id number] [place] [address] Nov, Chronic pain due to trauma G 89.21 and Neuroforaminal stenosis of spine M99.89 [place] [address] [place] [id number] [place] [address] Nov, Neuroforaminal stenosis of s pine M99.89 ; Essential hypertension I10 ; Mixed hyperlipidemia E78.2 ; Hypokalemia E87.6 ; Neck pain M54.2 and Nevus D22.9 [place] [address] [facility] [id number] [address] [place] [address] Oct, Neuroforaminal stenosis of s pine M99.89 [place] [address] [facility] [id number] [address] [place] [address] Sep, Neuroforaminal stenosis of s pine M99.89 [place] [address] [facility] [id number] [address] [place] [address] Sep, [place] [address] [place] [id number] [address] [place] [address] August, [place] [address] [facility] [id number] [address] [place] [phone] August, Neck pain M54.2 and Neurofor aminal stenosis of spine M99.89 [place] [address] [id number] [address] [place] [phone] August, Routine gynecological examin ation Z01.419 and Screening breast examination Z12.39 [facility] [address] [id number] [address] [place] [phone] Jul, [facility] [address] [id number] [address] [place] [phone] Jul, [facility] [address] [id number] [address] [place] [phone] Jul, Neuroforaminal stenosis of s pine M99.89 [facility] [address] [id number] [address] [place] [phone] Jul, [facility] [address] [id number] [address] [place] [phone] Jul, Neuroforaminal stenosis of l umbar 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 [facility] [address] [id number] [address] [place] [phone] Jul, [facility] [address] [id number] [address] [place] [phone] Jul, [facility] [address] [facility] [id number] [address] [place] [phone] Jun, Neuroforaminal stenosis of s pine M99.89 [facility] [address] [facility] [id number] [address] [place] [phone] Jun, Uterine leiomyoma, unspecifi ed location D25.9 and Allergic reaction caused by a drug, initial encounter T78.40XA [facility] [address] [id number] [address] [place] [phone] Jun, [facility] [address] [facility] [id number] [address] [place] [phone] May, UTI symptoms R39.9 and Pain of right sacroiliac joint M53.3 [facility] [address] [id number] [address] [place] [phone] May, Neuroforaminal stenosis of s pine M99.89 [place] [address] [address] [facility] [id number] [address] [place] [phone] May, [place] [address] [address] [facility] [id number] [address] [place] [phone] May, Acute mucoid otitis media of left ear H65.112 and Acute non- recurrent maxillary sinusitis J01.00 [place] [address] [address] [place] [id number] [address] [place] [phone] May, Acute bacterial conjunctivit is of both eyes H10.33 ; Left arm pain M79.602 and Hypokalemia E87.6 [place] [address] [address] [place] [id number] [address] [place] [phone] Apr, [place] [address] [phone] Apr, Neuroforaminal stenosis of s pine M99.89 ; Neck pain M54.2 ; Chronic pain due to trauma G89.21 ; Mixed hyperlipidemia E78.2 ; Essential hypertension I10 and Hypokalemia E87.6 [place] [address] [place] [id number] [address] [place] [address] Mar, Oral candidiasis B37.0 ; Nathaniel roforaminal stenosis of spine M99.89 ; Neck pain M54.2 and Chronic pain due to trauma G89.21 [place] [address] [place] [id number] [address] [place] [address] Feb, [place] [address] [facility] [id number] [address] [place] [address] Feb, [place] [address] [place] [id number] [address] [place] [id number] Feb, UTI (urinary tract infection ) N39.0 [place] [address] [place] [id number] [address] [place] [phone] Feb, Dysuria R30.0 [facility] [address] [id number] [address] [place] [address] Feb, Dysuria R30.0 [facility] [address] [id number] [address] [place] [address] Feb, Neuroforaminal stenosis of s pine M99.89 ; Neck pain M54.2 ; Essential hypertension I10 ; Chronic pain due to trauma G89.21 ; Dysuria R30.0 ; Abnormal MRI, shoulder R93.8 and Acute cystitis without hematuria N30.00 [facility] [address] [id number] [address] [place] [id number] Jan, [facility] [address] [id number] [address] [place] [phone] Jan, [facility] [address] [id number] [address] [place] [address] Jan, [facility] [address] [id number] [address] [place] [address] Jan, Abnormal MRI R93.8 [facility] [address] [id number] [address] [place] [phone] 29 Dec, 2015 [facility] [address] [id number] [address] [place] [phone] 15 Dec, 2015 Acute pain of left shoulder M25.512 [facility] [address] [id number] [address] [place] [id number] 09 Dec, 2015 [facility] [address] [id number] [address] [place] [id number] 08 Dec, 2015 [facility] [address] [id number] [address] [place] [id number] 07 Dec, 2015 Acute pain of left shoulder M25.512 [facility] [address] [id number] [address] [place] [phone] Nov, [facility] [address] [id number] [address] [place] [address] Nov, Neuroforaminal stenosis of s pine M99.89 ; Neck pain M54.2 ; Abnormal mammogram R92.8 ; Essential hypertension I10 and Chronic pain due to trauma G89.21 [facility] [address] [id number] [address] [place] [id number] Nov, [facility] [address] [id number] [address] [place] [phone] Oct, Acute stress disorder F43.0 [facility] [address] [id number] [address] [place] [phone] Oct, [facility] [address] [id number] [address] [place] [phone] Oct, [facility] [address] [id number] [address] [place] [address] Oct, [facility] [address] [id number] [address] [place] [id number] Sep, [facility] [address] [id number] [address] [place] [phone] August, [facility] [address] [id number] [address] [place] [id number] Jul, Neuroforaminal stenosis of s pine M99.89 ; Neck pain M54.2 ; Abnormal mammogram R92.8 and Essential hypertension I10 [facility] [address] [id number] [address] [place] [address] Jul, [facility] [address] [id number] [address] [place] [phone] Jul, [facility] [address] [id number] [address] [place] [address] Jul, Abnormal mammogram R92.8 [facility] [address] [id number] [address] [place] [address] Jul, [facility] [address] [place] [id number] [address] [place] [address] Jul, UTI (urinary tract infection ) N39.0 [facility] [address] [address] Jul, Dysuria R30.0 [facility] [address] [place] [id number] [address] [place] [address] Jun, [facility] [address] [place] [id number] [place] [phone] Jun, [facility] [address] [place] [id number] [place] [address] Jun, Hypokalemia E87.6 and Hematu martina R31.9 [facility] [address] [place] [id number] [place] [phone] Jun, Hypokalemia E87.6 [facility] [address] [address] Jun, [facility] [address] [address] Jun, Hypokalemia E87.6 [facility] [address] [place] [id number] [address] [place] [address] Jun, Hypokalemia E87.6 [place] [address] [place] [id number] [address] [place] [address] Jun, Neuroforaminal stenosis of s pine M99.89 ; Hypokalemia E87.6 ; Neck pain M54.2 ; Essential hypertension I10 ; Mixed hyperlipidemia E78.2 and Screening breast examination Z12.39 [facility] [address] [address] Jun, Dysuria R30.0 ; UTI (urinary tract infection) N39.0 and Hematuria R31.9 [facility] [address] [place] [id number] [address] [place] [address] May, [facility] [address] [facility] [id number] [address] [place] [address] 18 May, 2015 High risk sexual behavior Z7 2.51 ; Hypokalemia E87.6 ; Neuroforaminal stenosis of spine M99.89 ; Neck pain M54.2 ; Essential hypertension I10 ; Mixed hyperlipidemia E78.2 ; STD exposure Z20.2 and Concern about STD in female without diagnosis Z71.1 [facility] [address] [facility] [id number] [place] [id number] 16 May, 2015 Neuroforaminal stenosis of s pine M99.89 ; Neck pain M54.2 ; Hypokalemia E87.6 ; Essential hypertension I10 and Mixed hyperlipidemia E78.2 [facility] [address] [place] [id number] [address] [place] [address] 11 May, 2015 [facility] [address] [place] [id number] [place] [address] 08 May, 2015 High risk sexual behavior Z7 2.51 ; STD exposure Z20.2 and Concern about STD in female without diagnosis Z71.1 [place] [address] [address] 05 May, 2015 [facility] [address] [place] [id number] [address] [place] [address] Apr, Neuroforaminal stenosis of s pine M99.89 ; Mixed hyperlipidemia E78.2 ; Essential hypertension I10 and Hypokalemia E87.6 [facility] [address] [facility] [id number] [address] [place] [address] Mar, [place] [address] [place] [id number] [place] [address] Mar, Hypokalemia E87.6 [facility] [address] [facility] [id number] [address] [place] [address] Mar, Neuroforaminal stenosis of s pine M99.89 ; Mixed hyperlipidemia E78.2 ; Neck pain M54.2 ; Essential hypertension I10 ; Abnormal fasting glucose R73.09 ; Hypokalemia E87.6 and Constipation K59.00 [place] [address] [address] Feb, Neuroforaminal stenosis of s pine M99.89 ; Mixed hyperlipidemia E78.2 ; Neck pain M54.2 ; Essential hypertension I10 ; Abnormal fasting glucose R73.09 ; Hypokalemia E87.6 and Constipation K59.00 [place] [address] [address] Feb, Elevated fasting blood sugar R73.01 [place] [address] [address] Feb, Elevated fasting blood sugar R73.01 [place] [address] [address] Feb, Hair loss L65.9 [place] [address] [address] Feb, Sinusitis J32.9 ; Essential hypertension I10 and Hair loss L65.9 [place] [address] [address] Jan, [place] [address] [address] Jan, Essential hypertension I10 ; Neuroforaminal stenosis of spine M99.89 ; Neck pain M54.2 ; Mixed hyperlipidemia E78.2 and Anxiety F41.9 [place] [address] [address] Jan, [place] [address] [address] Jan, Mixed hyperlipidemia E78.2 ; Essential (primary) hypertension I10 ; Strain of muscle, fascia and tendon at neck level, subsequent encounter S16.1XXD and Tension-type headache, unspecified, not intractable G44.209 [place] [address] [place] [id number] [address] [place] [address] Dec, Lumbar back pain 724.2 and N euroforaminal stenosis of spine 724.00 [facility] [address] [id number] [address] [place] [address] Nov, [facility] [address] [id number] [address] [place] [address] Nov, Lumbar back pain 724.2 and N euroforaminal stenosis of spine 724.00 [facility] [address] [id number] [address] [place] [address] Nov, Edema 782.3 ; Lumbar back pa in 724.2 ; Essential hypertension, benign 401.1 ; Hyperlipemia 272.4 ; Neuroforaminal stenosis of spine 724.00 and Post-concussion headache 339.20 [facility] [address] [id number] [address] [place] [address] Nov, [facility] [address] [id number] [address] [place] [address] Nov, [facility] [address] [id number] [address] [place] [address] Oct, Essential hypertension, sheridan gn 401.1 [facility] [address] [id number] [address] [place] [address] Oct, Edema 782.3 ; Lumbar back pa in 724.2 ; Essential hypertension, benign 401.1 ; Hyperlipemia 272.4 ; Neuroforaminal stenosis of spine 724.00 and Post-concussion headache 339.20 [facility] [address] [id number] [address] [place] [address] Oct, [facility] [address] [id number] [address] [place] [address] Oct, Edema 782.3 [facility] [address] [id number] [address] [place] [address] Oct, Lumbar back pain 724.2 [facility] [address] [id number] [address] [place] [address] Oct, Cervicalgia 723.1 ; Lumbar b ack pain 724.2 and High risk medication use V58.69 [facility] [address] [id number] [address] [place] [address] Sep, [facility] [address] [id number] [address] [place] [address] Sep, Lumbar strain 847.2 [facility] [address] [id number] [address] [place] [address] August, Edema 782.3 and Eustachian t ube dysfunction 381.81 [facility] [address] [id number] [address] [place] [address] August, [facility] [address] [id number] [address] [place] [address] August, Eustachian tube dysfunction 381.81 [facility] [address] [id number] [address] [place] [address] Jul, Otalgia 388.70 and Otitis me jonathon 382.9 [facility] [address] [id number] [address] [place] [address] Jul, [facility] [address] [id number] [address] [place] [address] Jul, [facility] [address] [id number] [address] [place] [address] Jul, [facility] [address] [id number] [address] [place] [address] Jul, [facility] [address] [id number] [address] [place] [phone] Jul, [facility] [address] [id number] [address] [place] [address] Jun, [facility] [address] [id number] [address] [place] [address], [place] [address] Jun, [facility] [address] [id number] [address] [place] [address], [place] [address] Jun, [facility] [address] [id number] [address] [place] [address], [place] [address] May, 2014 [facility] [address] [id number] [address] [place] [address], [place] [address] May, 2014 [facility] [address] [id number] [address] [place] [address], [place] [address] May, 2014 [facility] [address] [id number] [address] [place] [address], [place] [address] May, 2014 [facility] [address] [id number] [address] [place] [address], [place] [address] May, 2014 [facility] [address] [id number] [address] [place] [address], [place] [address] May, 2014 [facility] [address] [id number] [address] [place] [address], [place] [address] May, [facility] [address] [id number] [address] [place] [address], [place] [address] May, [facility] [address] [id number] [address] [place] [address], [place] [address] May, [facility] [address] [id number] [address] [place] [address], [place] [address] May, [facility] [address] [id number] [address] [place] [address], [place] [address] Apr, [facility] [address] [id number] [address] [place] [address], [place] [address] Apr, [facility] [address] [id number] [address] [place] [address], [place] [address] Apr, [facility] [address] [id number] [address] [place] [address], [place] [address] Apr, [facility] [address] [id number] [address] [place] [address], [place] [address] Apr, [facility] [address] [id number] [address] [place] [address], [place] [address] Apr, [facility] [address] [id number] [address] [place] [address], [place] [address] Apr, [facility] [address] [id number] [address] [place] [address], [place] [address] Apr, [facility] [address] [id number] [address] [place] [address], [place] [address] Apr, [facility] [address] [id number] [address] [place] [address], [place] [address] Apr, [facility] [address] [id number] [address] [place] [address], [place] [address] Apr, [facility] [address] [id number] [address] [place] [address], [place] [address] Apr, [facility] [address] [id number] [address] [place] [address], [place] [address] Apr, [facility] [address] [id number] [address] [place] [address], [place] [address] Apr, [facility] [address] [id number] [address] [place] [address], [place] [address] Apr, [facility] [address] [id number] [address] [place] [address], [place] [address] Mar, [facility] [address] [id number] [address] [place] [address], [place] [address] Mar, [facility] [address] [id number] [address] [place] [address], [place] [address] Mar, [facility] [address] [id number] [address] [place] [address], [place] [address] Mar, [facility] [address] [id number] [address] [place] [address], [place] [address] 07 Feb, 2013 [facility] [address] [id number] [address] [place] [address], [place] [address] Feb, 2013 [facility] [address] [id number] [address] [place] [address], [place] [address] Feb, [facility] [address] [id number] [address] [place] [address], [place] [address] Feb, [facility] [address] [id number] [address] [place] [address], [place] [address] Jan, [facility] [address] [id number] [address] [place] [address], [place] [address] Jan, [facility] [address] [id number] [address] [place] [address], [place] [address] Jan, [facility] [address] [id number] [address] [place] [address], [place] [address] Jan, [facility] [address] [id number] [address] [place] [address], [place] [address] Jan, [facility] [address] [id number] [address] [place] [address], [place] [address] Jan, [facility] [address] [id number] [address] [place] [address], [place] [address] Jan, [facility] [address] [id number] [address] [place] [address], [place] [address] Jan, [facility] [address] [id number] [address] [place] [address], [place] [address] Dec, [facility] [address] [id number] [address] [place] [address], [place] [address] Dec, 2013 [facility] [address] [id number] [address] [place] [address], [place] [address] Dec, 2013 [facility] [address] [id number] [address] [place] [address], [place] [address] Dec, [facility] [address] [id number] [address] [place] [address], [place] [address] Oct, 2013 [facility] [address] [id number] [address] [place] [address], [place] [address] Oct, [facility] [address] [id number] [address] [place] [address], [place] [address] Oct, 2013 [facility] [address] [id number] [address] [place] [address], [place] [address] Oct, 2013 [facility] [address] [id number] [address] [place] [address], [place] [address] Oct, [facility] [address] [id number] [address] [place] [address], [place] [address] Oct, 2013 [facility] [address] [id number] [address] [place] [address], [place] [address] Oct, 2013 [facility] [address] [id number] [address] [place] [address], [place] [address] Oct, [facility] [address] [id number] [address] [place] [address], [place] [address] Sep, [facility] [address] [id number] [address] [place] [address], [place] [address] Sep, [facility] [address] [id number] [address] [place] [address], [place] [address] Sep, [facility] [address] [id number] [address] [place] [address], [place] [id number] Sep, [facility] [address] [id number] [address] [place] [address], [place] [id number] Sep, [facility] [address] [id number] [address] [place] [address], [place] [address] Sep, [facility] [address] [id number] [address] [place] [address], [place] [id number] Sep, [facility] [address] [id number] [address] [place] [address], [place] [id number] Sep, [facility] [address] [id number] [address] [place] [address], [place] [address] Sep, [facility] [address] [id number] [address] [place] [address], [place] [id number] Sep, [facility] [address] [id number] [address] [place] [address], [place] [address] August, [facility] [address] [id number] [address] [place] [address], [place] [id number] August, [facility] [address] [id number] [address] [place] [address], [place] [id number] August, [facility] [address] [id number] [address] [place] [address], [place] [id number] August, [facility] [address] [id number] [address] [place] [address], [place] [address] August, [facility] [address] [id number] [address] [place] [address], [place] [id number] August, [facility] [address] [id number] [address] [place] [address], [place] [address] August, [facility] [address] [id number] [address] [place] [address], [place] [address] August, [facility] [address] [id number] [address] [place] [address], [place] [address] August, [facility] [address] [id number] [address] [place] [address], [place] [id number] August, [facility] [address] [id number] [address] [place] [address], [place] [id number] August, [facility] [address] [id number] [address] [place] [address], [place] [address] August, [facility] [address] [id number] [address] [place] [address], [place] [address] Jul, [facility] [address] [id number] [facility] [place] [id number] 11 Jul, 2013 [facility] [address] [id number] [address] [place] [address], [place] [id number] Jul, [facility] [address] [id number] [address] [place] [address], [place] [address] Jul, [facility] [address] [id number] [address] [place] [address], [place] [id number] Jul, [facility] [address] [id number] [address] [place] [address], [place] [address] Jul, [facility] [address] [id number] [address] [place] [address], [place] [address] Jun, [facility] [address] [id number] [address] [place] [address], [place] [id number] Jun, [facility] [address] [id number] [address] [place] [address], [place] [address] May, [facility] [address] [id number] [address] [place] [address], [place] [address] May, [facility] [address] [id number] [address] [place] [address], [place] [id number] Apr, [facility] [address] [id number] [address] [place] [address], [place] [address] Apr, [facility] [address] [id number] [address] [place] [address], [place] [address] Apr, [facility] [address] [id number] [address] [place] [address], [place] [address] Apr, [facility] [address] [id number] [address] [place] [address], [place] [address] Apr, [facility] [address] [id number] [address] [place] [address], [place] [id number] Apr, [facility] [address] [id number] [address] [place] [address], [place] [address] Apr, [facility] [address] [id number] [address] [place] [address], [place] [address] Apr, [facility] [address] [id number] [address] [place] [address], [place] [address] Apr, [facility] [address] [id number] [address] [place] [address], [place] [id number] Apr, [facility] [address] [id number] [address] [place] [address], [place] [id number] Apr, [facility] [address] [id number] [address] [place] [address], [place] [address] Apr, [facility] [address] [id number] [address] [place] [address], [place] [address] Apr, [facility] [address] [id number] [address] [place] [address], [place] [id number] Mar, [facility] [address] [id number] [address] [place] [address], [place] [id number] Mar, [facility] [address] [id number] [address] [place] [address], [place] [id number] Mar, [facility] [address] [id number] [address] [place] [address], [place] [id number] Mar, [facility] [address] [id number] [address] [place] [id number] Feb, [facility] [address] [id number] [address] [place] [id number] Feb, [facility] [address] [id number] [address] [place] [address], [place] [id number] Feb, [facility] [address] [id number] [address] [place] [address], [place] [id number] Feb, [facility] [address] [id number] [address] [place] [address], [place] [id number] Jan, [facility] [address] [id number] [address] [place] [address], [place] [id number] 14 Jan, 2013 [facility] [address] [id number] [address] [place] [address], [place] [id number] 11 Jan, 2013 [facility] [address] [id number] [address] [place] [address], [place] [id number] 11 Jan, 2013 [facility] [address] [id number] [address] [place] [address], [place] [id number] 10 Jan, 2013 [facility] [address] [id number] [address] [place] [address], [place] [id number] 10 Jan, 2013 [facility] [address] [id number] [address] [place] [address], [place] [address] Jan, [facility] [address] [id number] [address] [place] [address], [place] [id number] 09 Jan, 2013 [facility] [address] [id number] [address] [place] [address], [place] [address] Jan, [facility] [address] [id number] [address] [place] [address], [place] [id number] 26 Dec, 2012 [facility] [address] [id number] [address] [place] [address], [place] [id number] 16 Dec, 2012 [facility] [address] [id number] [address] [place] [address], [place] [id number] 16 Dec, 2012 [facility] [address] [id number] [address] [place] [address], [place] [id number] 13 Dec, 2012 [facility] [address] [id number] [address] [place] [address], [place] [id number] 17 Nov, 2012 [facility] [address] [id number] [address] [place] [address], [place] [id number] 17 Nov, 2012 [facility] [address] [id number] [address] [place] [address], [place] [id number] 14 Nov, 2012 [facility] [address] [id number] [address] [place] [address], [place] [id number] Nov, [facility] [address] [id number] [address] [place] [address], [place] [address] Oct, [facility] [address] [id number] [address] [place] [address], [place] [address] Sep, [facility] [address] [id number] [address] [place] [address], [place] [address] August, [facility] [address] [id number] [address] [place] [address], [place] [address] August, [facility] [address] [id number] [address] [place] [address], [place] [id number] August, [facility] [address] [id number] [address] [place] [address], [place] [address] August, [facility] [address] [id number] [address] [place] [address], [place] [address] August, [facility] [address] [id number] [address] [place] [address], [place] [address] August, [facility] [address] [id number] [address] [place] [address], [place] [address] August, [facility] [address] [id number] [address] [place] [address], [place] [address] August, [facility] [address] [id number] [address] [place] [address], [place] [address] August, [facility] [address] [id number] [address] [place] [address], [place] [address] August, [facility] [address] [id number] [address] [place] [address], [place] [address] August, [facility] [address] [id number] [address] [place] [address], [place] [address] August, [facility] [address] [id number] [address] [place] [address], [place] [address] Jul, [facility] [address] [id number] [address] [place] [address], [place] [address] Jul, [facility] [address] [id number] [address] [place] [address], [place] [address] Jul, [facility] [address] [id number] [address] [place] [address], [place] [address] Jul, [facility] [address] [id number] [address] [place] [address], [place] [id number] Jul, [facility] [address] [id number] [address] [place] [address], [place] [id number] Jul, [facility] [address] [id number] [address] [place] [address], [place] [address] Jul, [facility] [address] [id number] [address] [place] [address], [place] [address] Jul, [facility] [address] [id number] [address] [place] [address], [place] [address] Jul, [facility] [address] [id number] [address] [place] [address], [place] [address] Jul, [facility] [address] [id number] [address] [place] [address], [place] [address] Jul, [facility] [address] [id number] [address] [place] [address], [place] [address] Jun, [facility] [address] [id number] [address] [place] [address], [place] [address] Jun, [facility] [address] [id number] [address] [place] [address], [place] [id number] Jun, [facility] [address] [id number] [address] [place] [address], [place] [address] Jun, [facility] [address] [id number] [address] [place] [address], [place] [address] May, [facility] [address] [id number] [address] [place] [address], [place] [address] 14 May, 2012 [facility] [address] [id number] [address] [place] [address], [place] [address] 05 May, 2012 [facility] [address] [id number] [address] [place] [address], [place] [address] May, [facility] [address] [id number] [address] [place] [address], [place] [address] May, [facility] [address] [id number] [address] [place] [address], [place] [id number] May, [facility] [address] [id number] [address] [place] [address], [place] [address] Apr, [facility] [address] [id number] [address] [place] [address], [place] [address] Apr, [facility] [address] [id number] [address] [place] [address], [place] [address] Apr, [facility] [address] [id number] [address] [place] [address], [place] [address] Apr, [facility] [address] [id number] [address] [place] [address], [place] [address] 15 Mar, 2012 [facility] [address] [id number] [address] [place] [address], [place] [address] 14 Mar, 2012 [facility] [address] [id number] [address] [place] [address], [place] [address] 14 Mar, 2012 [facility] [address] [id number] [address] [place] [address], [place] [address] 14 Mar, 2012 [facility] [address] [id number] [address] [place] [address], [place] [address] 14 Mar, 2012 [facility] [address] [id number] [address] [place] [address], [place] [address] 06 Mar, 2012 [facility] [address] [id number] [address] [place] [address], [place] [address] 06 Mar, 2012 [facility] [address] [id number] [address] [place] [address], [place] [address] Feb, [facility] [address] [id number] [address] [place] [address], [place] [address] Feb, [facility] [address] [id number] [address] [place] [address], [place] [address] Feb, [facility] [address] [id number] [address] [place] [address], [place] [address] Feb, [facility] [address] [id number] [address] [place] [address], [place] [address] Jan, [facility] [address] [id number] [address] [place] [address], [place] [address] Jan, [facility] [address] [id number] [address] [place] [address], [place] [address] Jan, [facility] [address] [id number] [address] [place] [address], [place] [address] Jan, [facility] [address] [id number] [address] [place] [address], [place] [address] Jan, [facility] [address] [id number] [address] [place] [address], [place] [address] Jan, [facility] [address] [id number] [address] [place] [address], [place] [address] Dec, [facility] [address] [id number] [address] [place] [address], [place] [address] Dec, [facility] [address] [id number] [address] [place] [address], [place] [address] Nov, [facility] [address] [id number] [address] [place] [address], [place] [address] Sep, [facility] [address] [id number] [address] [place] [address], [place] [address] August, [facility] [address] [id number] [address] [place] [address], [place] [address] August, [facility] [address] [id number] [address] [place] [address], [place] [address] August, [facility] [address] [id number] [address] [place] [address], [place] [address] August, [facility] [address] [id number] [address] [place] [address], [place] [address] August, [facility] [address] [id number] [address] [place] [address], [place] [address] Jun, [facility] [address] [id number] [address] [place] [address], [place] [address] Jun, [facility] [address] [id number] [address] [place] [address], [place] [address] Apr, [facility] [address] [id number] [address] [place] [address], [place] [address] Apr, [facility] [address] [id number] [address] [place] [address], [place] [address] Mar, [facility] [address] [id number] [address] [place] [address], [place] [address] Feb, [facility] [address] [id number] [address] [place] [address], [place] [address] Feb, [facility] [address] [id number] [address] [place] [address], [place] [address] Feb, [facility] [address] [id number] [address] [place] [address], [place] [address] 17 Jan, 2011 [facility] [address] [id number] [address] [place] [address], [place] [address] 15 Jan, 2011 [facility] [address] [id number] [address] [place] [address], [place] [address] 15 Jan, 2011 [facility] [address] [id number] [address] [place] [address], [place] [address] 14 Jan, 2011 [facility] [address] [id number] [address] [place] [address], [place] [address] 15 May, 2010 [facility] [address] [facility] [id number] [address] [place] [id number] Mar, [facility] [address] [facility] [id number] [address] [place] [id number] Oct, [facility] [address] [facility] [id number] [address] [place] [id number] Sep, [facility] [address] [facility] [id number] [address] [place] [id number] Mar, [facility] [address] [facility] [id number] [address] [place] [id number] Jan, [facility] [address] [facility] [id number] [address] [place] [id number] Jan, [facility] [address] [facility] [id number] [address] [place] [id number] May, IMMUNIZATIONS No Known Immunizations SOCIAL HISTORY [...]
--- OUTSIDE RECORDS SUMMARY | 2019-11-23 06:10 | XMS REPORT ---
Author Author Liana Fuchs Organization [facility] Address [address] [place] [address] Care Team Providers Care Agricultural Service Technician Name Role Phone PACHECO Fuchs Unavailable PROBLEMS Type Condition ICD9-CM Code XQU06-LA Code Onset Dates Condition S tatus SNOMED Code Problem Anxiety F41.9 Active 82638041 Problem Neck pain M54.2 Active 95283466 Problem Neuroforaminal stenosis of spine M99.89 Active 157711894585 Problem Hematuria, unspecified type R31.9 Ac tive 29117788 Problem Seasonal allergies J30.2 Active 4 76590175 Problem Abnormal glucose R73.09 Active 102 242587 Problem Rhinosinusitis J32.9 Active 48599 4004 Problem Abnormal renal ultrasound R93.429 Acti ve [id number] Problem Essential hypertension I10 Active 32628344 Problem Mixed hyperlipidemia E78.2 Active 80736390 Problem Hypokalemia E87.6 Active 50514061 Problem Chronic pain due to trauma G89.21 Act juanis [id number] ALLERGIES No Information ENCOUNTERS Encounter Location Date Diagnosis [place] [address] [facility] [id number] [address] [place] [address] August, [place] [address] [address] [facility] [id number] [address] [place] [address] Jul, Neuroforaminal stenosis of s pine M99.89 [facility] [address] [facility] [id number] [address] [place] [address] Jul, Allergic conjunctivitis of b oth eyes H10.13 [place] [id number] [facility] [id number] [address] [place] [address] Jun, Hypokalemia E87.6 [place] [address] [address] [facility] [id number] [address] [place] [address] Jun, [facility] [address] [id number] [address] [place] [address] 25 Jun, 2019 Neuroforaminal stenosis of s pine M99.89 [facility] [address] [id number] [address] [place] [address] 19 Jun, 2019 Lateral epicondylitis, left elbow M77.12 and Medial epicondylitis, left elbow M77.02 [facility] [address] [id number] [address] [place] [address] 16 Jun, 2019 Foraminal stenosis of lumbar region M48.061 ; Segmental dysfunction of thoracic region M99.02 ; Segmental dysfunction of lumbar region M99.03 and Segmental dysfunction of sacral region M99.04 [facility] [address] [id number] [address] [place] [address] 28 May, 2019 Left elbow pain M25.522 [facility] [address] [id number] [address] [place] [address] May, [facility] [address] [id number] [address] [place] [address] May, Left elbow pain M25.522 [facility] [address] [id number] [address] [place] [address] May, Neuroforaminal stenosis of s pine M99.89 [facility] [address] [id number] [address] [place] [address] May, Rhinosinusitis J32.9 ; Left elbow pain M25.522 and Neck pain M54.2 [facility] [address] [id number] [address] [place] [address] 14 May, 2019 Lateral epicondylitis of lef t elbow M77.12 [facility] [address] [id number] [address] [place] [address] Apr, Neuroforaminal stenosis of s pine M99.89 [facility] [address] [id number] [address] [place] [address] Apr, Essential hypertension I10 a nd Mixed hyperlipidemia E78.2 [facility] [address] [id number] [address] [place] [address] Mar, Neuroforaminal stenosis of s pine M99.89 [facility] [address] [id number] [address] [place] [address] Mar, Epicondylitis, lateral, left M77.12 [facility] [address] [id number] [address] [place] [address] Mar, [facility] [address] [facility] [id number] [address] [place] [address] Mar, Neuroforaminal stenosis of s pine M99.89 [facility] [address] [id number] [address] [place] [address] Feb, Neuroforaminal stenosis of s pine M99.89 ; Essential hypertension I10 ; Mixed hyperlipidemia E78.2 ; Encounter for immunization Z23 and Seasonal allergies J30.2 [facility] [address] [id number] [address] [place] [address] Jan, Neuroforaminal stenosis of s pine M99.89 [facility] [address] [id number] [address] [place] [address] Dec, Neuroforaminal stenosis of s pine M99.89 [facility] [address] [id number] [address] [place] [address] Dec, Neuroforaminal stenosis of s pine M99.89 [facility] [address] [id number] [address] [place] [address] Nov, [facility] [address] [id number] [address] [place] [address] Nov, Neuroforaminal stenosis of s pine M99.89 [facility] [address] [id number] [address] [place] [address] Nov, Acute non-recurrent maxillar y sinusitis J01.00 [facility] [address] [id number] [address] [place] [address] Oct, Hypokalemia E87.6 [facility] [address] [facility] [id number] [address] [place] [address] Oct, Wasp sting, undetermined int ent, initial encounter T63.464A and Cellulitis of left lower extremity L03.116 [facility] [address] [facility] [id number] [address] [place] [address] Oct, Neuroforaminal stenosis of s pine M99.89 [place] [address] [address] [facility] [id number] [address] [place] [address] Sep, [place] [address] [address] [facility] [id number] [address] [place] [address] Sep, [place] [address] [address] [facility] [id number] [address] [place] [address] Sep, Routine screening for STI (s exually transmitted infection) Z11.3 [place] [address] [address] [facility] [id number] [address] [place] [address] 14 Sep, 2018 Routine screening for STI (s exually transmitted infection) Z11.3 ; Well woman exam with routine gynecological exam Z01.419 and Breast cancer screening Z12.39 [place] [address] [address] [facility] [id number] [address] [place] [address] Sep, Neuroforaminal stenosis of s pine M99.89 [facility] [address] [facility] [id number] [address] [place] [address] August, Neuroforaminal stenosis of s pine M99.89 [place] [address] [address] [facility] [id number] [address] [place] [address] August, Neuroforaminal stenosis of s pine M99.89 ; Chronic pain due to trauma G89.21 and Mixed hyperlipidemia E78.2 [place] [address] [place] [id number] [address] [place] [address] Jul, Viral upper respiratory illn ess J06.9 and Acute non-recurrent frontal sinusitis J01.10 [facility] [address] [id number] [address] [place] [address] Jul, Congestion of nasal sinus R0 9.81 [facility] [address] [id number] [address] [place] [address] Jul, Neuroforaminal stenosis of s pine M99.89 and Essential hypertension I10 [facility] [address] [id number] [address] [place] [address] May, Neuroforaminal stenosis of s pine M99.89 [facility] [address] [id number] [address] [place] [address] May, [facility] [address] [id number] [address] [place] [address] May, Congestion of nasal sinus R0 9.81 [facility] [address] [id number] [address] [place] [address] May, [facility] [address] [id number] [address] [place] [address] Apr, Neuroforaminal stenosis of s pine M99.89 [facility] [address] [id number] [address] [place] [address] Apr, Neuroforaminal stenosis of s pine M99.89 and Chronic pain due to trauma G89.21 [facility] [address] [id number] [address] [place] [address] Mar, UTI (urinary tract infection ) N39.0 [facility] [address] [id number] [address] [place] [address] Mar, Vertigo R42 [facility] [address] [id number] [address] [place] [address] Mar, Neuroforaminal stenosis of s pine M99.89 [facility] [address] [id number] [address] [place] [address] Feb, Extensor tendon disruption M 67.89 [facility] [address] [id number] [address] [place] [address] Feb, Neuroforaminal stenosis of s pine M99.89 and High risk medication use Z79.899 [facility] [address] [id number] [address] [place] [address] Jan, Hypokalemia E87.6 [facility] [address] [id number] [address] [place] [address] Jan, Flank pain R10.9 and Acute r ight-sided low back pain without sciatica M54.5 [facility] [address] [id number] [address] [place] [address] Jan, Hypokalemia E87.6 [facility] [address] [id number] [address] [place] [address] Jan, [facility] [address] [id number] [address] [place] [address] Jan, URI, acute J06.9 [facility] [address] [id number] [address] [place] [address] 05 Jan, 2018 Neuroforaminal stenosis of s jose M99.89 [facility] [address] [id number] [address] [place] [address] 13 Dec, 2017 Lateral epicondylitis, right elbow M77.11 [facility] [address] [id number] [address] [place] [address] 11 Dec, 2017 Allergic rhinitis due to monica rosalina, unspecified seasonality J30.1 and Allergic conjunctivitis of both eyes H10.13 [facility] [address] [id number] [address] [place] [address] 10 Dec, 2017 Neuroforaminal stenosis of s pine M99.89 [facility] [address] [place] [id number] [address] [place] [address] Dec, Mixed hyperlipidemia E78.2 [place] [address] [place] [id number] [address] [place] [address] 05 Dec, 2017 Abnormal glucose R73.09 ; Ab normal renal ultrasound R93.429 ; Dysuria R30.0 ; Cystitis without hematuria N30.90 ; Hypokalemia E87.6 ; Mixed hyperlipidemia E78.2 and Hematuria, unspecified type R31.9 [place] [address] [place] [id number] [address] [place] [address] Nov, Hypokalemia E87.6 ; Mixed hy perlipidemia E78.2 and Hematuria, unspecified type R31.9 [place] [address] [place] [id number] [place] [address] Nov, [place] [address] [address] Nov, Hypokalemia E87.6 [place] [address] [place] [id number] [address] [place] [address] Nov, [place] [address] [address] Nov, Abnormal renal ultrasound R9 3.429 [place] [address] [place] [id number] [address] [place] [address] Nov, Abnormal renal ultrasound R9 3.429 [place] [address] [place] [id number] [address] [place] [address] Nov, Hematuria, unspecified type R31.9 and Neuroforaminal stenosis of spine M99.89 [place] [address] [place] [id number] [address] [place] [address] Nov, Dysuria R30.0 [place] [address] [place] [id number] [address] [place] [address] Oct, Lateral epicondylitis, right elbow M77.11 [place] [address] [id number] [address] [place] [address] Oct, Neuroforaminal stenosis of s pine M99.89 ; Visit for TB skin test Z11.1 and Essential hypertension I10 [facility] [address] [id number] [address] [place] [address] 16 Oct, 2017 [place] [address] [id number] [address] [place] [address] Oct, Neuroforaminal stenosis of s pine M99.89 [place] [address] [id number] [address] [place] [address] 10 Oct, 2017 Visit for TB skin test Z11.1 [place] [address] [id number] [address] [place] [address] 05 Oct, 2017 Cystitis without hematuria N 30.90 [place] [address] [id number] [address] [place] [address] 28 Sep, 2017 Screening breast examination Z12.39 [place] [address] [id number] [address] [place] [address] 26 Sep, 2017 Dysuria R30.0 and Cystitis w ithout hematuria N30.90 [place] [address] [id number] [address] [place] [address] 14 Sep, 2017 Essential hypertension I10 a nd 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 [place] [address] [id number] [address] [place] [address] Sep, Abnormal glucose R73.09 [place] [address] [id number] [address] [place] [address] August, Lateral epicondylitis, right elbow M77.11 [place] [address] [id number] [address] [place] [address] August, Screen for STD (sexually tra nsmitted disease) Z11.3 [place] [address] [id number] [address] [place] [address] August, Neuroforaminal stenosis of s jose M99.89 ; Mixed hyperlipidemia E78.2 ; Elevated fasting glucose R73.01 ; Screening mammogram, encounter for Z12.31 and Encounter for well woman exam without gynecological exam Z00.00 [facility] [address] [id number] [address] [place] [address] August, Neuroforaminal stenosis of s jose M99.89 [facility] [address] [id number] [address] [place] [address] August, Essential hypertension I10 ; Hypokalemia E87.6 and Mixed hyperlipidemia E78.2 [place] [address] [id number] [address] [place] [address] Jul, [place] [address] [id number] [address] [place] [address] Jul, Neuroforaminal stenosis of s jose M99.89 [facility] [address] [id number] [address] [place] [address] Jul, Lateral epicondylitis, right elbow M77.11 [place] [address] [id number] [address] [place] [address] Jul, [facility] [address] [id number] [address] [place] [address] Jun, High ankle sprain of right l ower extremity, initial encounter S93.431A [facility] [address] [id number] [address] [place] [address] Jun, Essential hypertension I10 [facility] [address] [id number] [address] [place] [address] Jun, [facility] [address] [id number] [address] [place] [address] Jun, [facility] [address] [id number] [address] [place] [address] Jun, Neuroforaminal stenosis of s jose M99.89 [place] [address] [facility] [id number] [address] [place] [address] Jun, Pain of right upper extremit y M79.601 and Essential hypertension I10 [place] [address] [facility] [id number] [address] [place] [address] Jun, [place] [address] [facility] [id number] [address] [place] [address] Jun, Dysuria R30.0 ; Acute cystit is with hematuria N30.01 and Screen for STD (sexually transmitted disease) Z11.3 [place] [address] [facility] [id number] [address] [place] [address] May, Chronic pain due to trauma G 89.21 [place] [address] [address] [facility] [id number] [address] [place] [address] May, Essential hypertension I10 [place] [address] [place] [id number] [address] [place] [address] May, Neuroforaminal stenosis of ayla garcia M99.89 [place] [address] [place] [id number] [place] [address] Apr, Allergic reaction, initial e ncounter T78.40XA [place] [address] [place] [id number] [address] [place] [address] Apr, Low back pain, unspecified b ack pain laterality, unspecified chronicity, with sciatica presence unspecified M54.5 ; Acute cystitis with hematuria N30.01 ; 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 ; Bilateral acute serous otitis media, recurrence not specified H65.03 ; Mixed hyperlipidemia E78.2 ; Essential hypertension I10 ; Immunization counseling Z71.89 and Encounter for immunization Z23 [place] [address] [place] [id number] [address] [place] [address] Apr, Neck pain M54.2 [place] [address] [place] [id number] [place] [address] Mar, Neuroforaminal stenosis of s pine M99.89 [facility] [address] [id number] [address] [place] [address] Mar, Pharyngitis due to other org anism J02.8 [facility] [address] [id number] [address] [place] [address] Feb, Neuroforaminal stenosis of s pine M99.89 [facility] [address] [id number] [address] [place] [address] Feb, UTI (urinary tract infection ) N39.0 [facility] [address] [id number] [address] [place] [address] Feb, Recent urinary tract infecti on Z87.440 ; Neuroforaminal 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 ; Neck pain M54.2 ; Chronic pain due to trauma G89.21 and Recurrent UTI N39.0 [facility] [address] [id number] [address] [place] [address] Feb, [facility] [address] [id number] [address] [place] [address] Jan, Neuroforaminal stenosis of s pine M99.89 [facility] [address] [id number] [address] [place] [address] Dec, Neuroforaminal stenosis of s pine M99.89 [facility] [address] [id number] [address] [place] [address] 18 Dec, 2016 Acute seasonal allergic rhin itis due to pollen J30.1 [facility] [address] [id number] [address] [place] [address] Dec, [facility] [address] [id number] [address] [place] [address] 08 Dec, 2016 Acute seasonal allergic rhin itis, unspecified trigger J30.2 ; Allergic conjunctivitis of both eyes H10.13 and Dysfunction of both eustachian tubes H69.83 [facility] [address] [id number] [address] [place] [address] Dec, [facility] [address] [id number] [address] [place] [address] Dec, Nevus D22.9 [facility] [address] [id number] [address] [place] [address] Nov, Chronic pain due to trauma G 89.21 and 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 [facility] [address] [id number] [address] [place] [address] Nov, Neuroforaminal stenosis of s pine M99.89 ; Essential hypertension I10 ; Mixed hyperlipidemia E78.2 ; Hypokalemia E87.6 ; Neck pain M54.2 and Nevus D22.9 [place] [address] [id number] [address] [place] [address] Oct, Neuroforaminal stenosis of s pine M99.89 [place] [address] [id number] [address] [place] [address] Sep, Neuroforaminal stenosis of s pine M99.89 [place] [address] [id number] [address] [place] [address] Sep, [place] [address] [id number] [address] [place] [address] August, [place] [address] [id number] [address] [place] [address] August, Neck pain M54.2 and Neurofor aminal stenosis of spine M99.89 [place] [address] [id number] [address] [place] [address] August, Routine gynecological examin ation Z01.419 and Screening breast examination Z12.39 [place] [address] [id number] [address] [place] [address] Jul, [facility] [address] [id number] [address] [place] [address] Jul, [facility] [address] [id number] [address] [place] [address] Jul, Neuroforaminal stenosis of s pine M99.89 [facility] [address] [id number] [address] [place] [id number] Jul, [facility] ([facility] [address] [id number] [address] [place] [phone] Jul, Neuroforaminal stenosis of l umbar 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 [facility] ([facility] [address] [id number] [address] [place] [phone] Jul, [facility] ([facility] [address] [id number] [address] [place] [phone] Jul, [facility] ([facility] [address] [id number] [address] [place] [phone] Jun, Neuroforaminal stenosis of s pine M99.89 [facility] ([facility] [address] [id number] [address] [place] [id number] Jun, Uterine leiomyoma, unspecifi ed location D25.9 and Allergic reaction caused by a drug, initial encounter T78.40XA [facility] ([facility] [address] [id number] [address] [place] [phone] Jun, [facility] ([facility] [address] [id number] [address] [place] [phone] May, UTI symptoms R39.9 and Pain of right sacroiliac joint M53.3 [facility] ([facility] [address] [id number] [address] [place] [phone] May, Neuroforaminal stenosis of s pine M99.89 [facility] ([facility] [address] [id number] [address] [place] [phone] May, [facility] ([facility] [address] [id number] [address] [place] [phone] May, Acute mucoid otitis media of left ear H65.112 and Acute non- recurrent maxillary sinusitis J01.00 [facility] ([facility] [address] [id number] [address] [place] [phone] May, Acute bacterial conjunctivit is of both eyes H10.33 ; Left arm pain M79.602 and Hypokalemia E87.6 [facility] ([facility] [address] [id number] [address] [place] [phone] Apr, [facility] ([facility] [address] [id number] [address] [place] [phone] Apr, Neuroforaminal stenosis of s pine M99.89 ; Neck pain M54.2 ; Chronic pain due to trauma G89.21 ; Mixed hyperlipidemia E78.2 ; Essential hypertension I10 and Hypokalemia E87.6 [place] [id number] [id number] [address] [place] [phone] Mar, Oral candidiasis B37.0 ; Nathaniel roforaminal stenosis of spine M99.89 ; Neck pain M54.2 and Chronic pain due to trauma G89.21 [place] [id number] [id number] [address] [place] [address] Feb, [place] [id number] [id number] [address] [place] [address] Feb, [facility] [address] [id number] [address] [place] [address] Feb, UTI (urinary tract infection ) N39.0 [facility] [address] [id number] [address] [place] [address] Feb, Dysuria R30.0 [place] [address] [facility] [id number] [address] [place] [address] Feb, Dysuria R30.0 [facility] [address] [id number] [address] [place] [address] Feb, Neuroforaminal stenosis of s pine M99.89 ; Neck pain M54.2 ; Essential hypertension I10 ; Chronic pain due to trauma G89.21 ; Dysuria R30.0 ; Abnormal MRI, shoulder R93.8 and Acute cystitis without hematuria N30.00 [facility] [address] [id number] [address] [place] [address] Jan, [facility] [address] [id number] [address] [place] [address] Jan, [facility] [address] [id number] [address] [place] [address] Jan, [facility] [address] [id number] [address] [place] [address] Jan, Abnormal MRI R93.8 [facility] [address] [id number] [address] [place] [address] 29 Dec, 2015 [facility] [address] [id number] [address] [place] [address] 15 Dec, 2015 Acute pain of left shoulder M25.512 [facility] [address] [id number] [address] [place] [address] 09 Dec, 2015 [facility] [address] [id number] [address] [place] [address] 08 Dec, 2015 [facility] [address] [id number] [address] [place] [address] 07 Dec, 2015 Acute pain of left shoulder M25.512 [facility] [address] [id number] [address] [place] [address] Nov, [facility] [address] [id number] [address] [place] [address] Nov, Neuroforaminal stenosis of s pine M99.89 ; Neck pain M54.2 ; Abnormal mammogram R92.8 ; Essential hypertension I10 and Chronic pain due to trauma G89.21 [facility] [address] [id number] [address] [place] [address] Nov, [facility] [address] [id number] [address] [place] [address] Oct, Acute stress disorder F43.0 [facility] [address] [id number] [address] [place] [address] Oct, [facility] [address] [id number] [address] [place] [address] Oct, [facility] [address] [id number] [address] [place] [address] Oct, [facility] [address] [id number] [address] [place] [address] Sep, [facility] [address] [id number] [address] [place] [address] August, [facility] [address] [id number] [address] [place] [address] Jul, Neuroforaminal stenosis of s pine M99.89 ; Neck pain M54.2 ; Abnormal mammogram R92.8 and Essential hypertension I10 [facility] [address] [id number] [address] [place] [address] Jul, [facility] [address] [id number] [address] [place] [address] Jul, [facility] [address] [id number] [address] [place] [address] Jul, Abnormal mammogram R92.8 [facility] [address] [id number] [address] [place] [address] Jul, [facility] [address] [id number] [address] [place] [address] Jul, UTI (urinary tract infection ) N39.0 [facility] [address] [id number] [address] [place] [address] Jul, Dysuria R30.0 [facility] [address] [id number] [address] [place] [address] Jun, [facility] [address] [facility] [id number] [address] [place] [address] Jun, [place] [address] [address] [facility] [id number] [address] [place] [address] Jun, Hypokalemia E87.6 and Hematu martina R31.9 [place] [address] [address] [facility] [id number] [address] [place] [address] Jun, Hypokalemia E87.6 [place] [address] [address] [facility] [id number] [address] [place] [address] Jun, [place] [address] [address] [facility] [id number] [address] [place] [address] Jun, Hypokalemia E87.6 [place] [address] [address] [facility] [id number] [address] [place] [address] Jun, Hypokalemia E87.6 [place] [address] [address] [facility] [id number] [address] [place] [address] Jun, Neuroforaminal stenosis of s pine M99.89 ; Hypokalemia E87.6 ; Neck pain M54.2 ; Essential hypertension I10 ; Mixed hyperlipidemia E78.2 and Screening breast examination Z12.39 [place] [address] [address] [place] [id number] [address] [place] [address] Jun, Dysuria R30.0 ; UTI (urinary tract infection) N39.0 and Hematuria R31.9 [place] [address] [address] [facility] [id number] [address] [place] [address] May, [place] [address] [place] [id number] [place] [address] May, High risk sexual behavior Z7 2.51 ; Hypokalemia E87.6 ; Neuroforaminal stenosis of spine M99.89 ; Neck pain M54.2 ; Essential hypertension I10 ; Mixed hyperlipidemia E78.2 ; STD exposure Z20.2 and Concern about STD in female without diagnosis Z71.1 [facility] [id number] [place] [address] 16 May, 2015 Neuroforaminal stenosis of s pine M99.89 ; Neck pain M54.2 ; Hypokalemia E87.6 ; Essential hypertension I10 and Mixed hyperlipidemia E78.2 [facility] [address] [place] [id number] [address] [place] [address] 11 May, 2015 [facility] [address] [address] 08 May, 2015 High risk sexual behavior Z7 2.51 ; STD exposure Z20.2 and Concern about STD in female without diagnosis Z71.1 [place] [address] [address] 05 May, 2015 [facility] [address] [address] Apr, Neuroforaminal stenosis of s pine M99.89 ; Mixed hyperlipidemia E78.2 ; Essential hypertension I10 and Hypokalemia E87.6 [place] [address] [address] Mar, [place] [address] [address] Mar, Hypokalemia E87.6 [place] [address] [address] Mar, Neuroforaminal stenosis of s pine M99.89 ; Mixed hyperlipidemia E78.2 ; Neck pain M54.2 ; Essential hypertension I10 ; Abnormal fasting glucose R73.09 ; Hypokalemia E87.6 and Constipation K59.00 [place] [address] [address] Feb, Neuroforaminal stenosis of s pine M99.89 ; Mixed hyperlipidemia E78.2 ; Neck pain M54.2 ; Essential hypertension I10 ; Abnormal fasting glucose R73.09 ; Hypokalemia E87.6 and Constipation K59.00 [facility] [address] [facility] [id number] [address] [place] [address] Feb, Elevated fasting blood sugar R73.01 [facility] [address] [facility] [id number] [address] [place] [address] Feb, Elevated fasting blood sugar R73.01 [place] [address] [address] [facility] [id number] [address] [place] [address] Feb, Hair loss L65.9 [place] [address] [place] [id number] [place] [address] Feb, Sinusitis J32.9 ; Essential hypertension I10 and Hair loss L65.9 [place] [address] [address] [facility] [id number] [address] [place] [address] Jan, [place] [address] [place] [id number] [place] [address] Jan, Essential hypertension I10 ; Neuroforaminal stenosis of spine M99.89 ; Neck pain M54.2 ; Mixed hyperlipidemia E78.2 and Anxiety F41.9 [place] [address] [place] [id number] [place] [address] Jan, [place] [address] [place] [id number] [place] [address] Jan, Mixed hyperlipidemia E78.2 ; Essential (primary) hypertension I10 ; Strain of muscle, fascia and tendon at neck level, subsequent encounter S16.1XXD and Tension-type headache, unspecified, not intractable G44.209 [place] [address] [address] [facility] [id number] [address] [place] [address] Dec, Lumbar back pain 724.2 and N euroforaminal stenosis of spine 724.00 [place] [address] [address] [facility] [id number] [address] [place] [address] Nov, [place] [address] [place] [id number] [place] [address] Nov, Lumbar back pain 724.2 and N euroforaminal stenosis of spine 724.00 [facility] [address] [id number] [address] [place] [address] Nov, Edema 782.3 ; Lumbar back pa in 724.2 ; Essential hypertension, benign 401.1 ; Hyperlipemia 272.4 ; Neuroforaminal stenosis of spine 724.00 and Post-concussion headache 339.20 [facility] [address] [id number] [address] [place] [address] Nov, [facility] [address] [id number] [address] [place] [address] Nov, [facility] [address] [id number] [address] [place] [address] Oct, Essential hypertension, sheridan gn 401.1 [facility] [address] [id number] [address] [place] [address] Oct, Edema 782.3 ; Lumbar back pa in 724.2 ; Essential hypertension, benign 401.1 ; Hyperlipemia 272.4 ; Neuroforaminal stenosis of spine 724.00 and Post-concussion headache 339.20 [facility] [address] [id number] [address] [place] [address] Oct, [facility] [address] [id number] [address] [place] [address] Oct, Edema 782.3 [facility] [address] [id number] [address] [place] [address] Oct, Lumbar back pain 724.2 [facility] [address] [id number] [address] [place] [address] Oct, Cervicalgia 723.1 ; Lumbar b ack pain 724.2 and High risk medication use V58.69 [facility] [address] [id number] [address] [place] [address] Sep, [facility] [address] [id number] [address] [place] [address] Sep, Lumbar strain 847.2 [facility] [address] [id number] [address] [place] [address] August, Edema 782.3 and Eustachian t ube dysfunction 381.81 [facility] [address] [id number] [address] [place] [address] August, [facility] [address] [id number] [address] [place] [address] August, Eustachian tube dysfunction 381.81 [facility] [address] [id number] [address] [place] [address] Jul, Otalgia 388.70 and Otitis me jonathon 382.9 [facility] [address] [id number] [address] [place] [address] Jul, [facility] [address] [id number] [address] [place] [address] Jul, [facility] [address] [id number] [address] [place] [address] Jul, [facility] [address] [id number] [address] [place] [address] Jul, [facility] [address] [id number] [address] [place] [address] Jul, [facility] [address] [id number] [address] [place] [address] Jun, [facility] [address] [id number] [address] [place] [address] Jun, [facility] [address] [id number] [address] [place] [address] Jun, [facility] [address] [id number] [address] [place] [address] May, [facility] [address] [id number] [address] [place] [address], [place] [address] May, 2014 [facility] [address] [id number] [address] [place] [address], [place] [address] May, 2014 [facility] [address] [id number] [address] [place] [address], [place] [address] May, 2014 [facility] [address] [id number] [address] [place] [address], [place] [address] May, 2014 [facility] [address] [id number] [address] [place] [address], [place] [address] May, 2014 [facility] [address] [id number] [address] [place] [address], [place] [address] May, 2014 [facility] [address] [id number] [address] [place] [address], [place] [address] May, 2014 [facility] [address] [id number] [address] [place] [address], [place] [address] May, 2014 [facility] [address] [id number] [address] [place] [address], [place] [address] May, [facility] [address] [id number] [address] [place] [address], [place] [address] Apr, [facility] [address] [id number] [address] [place] [address], [place] [address] Apr, [facility] [address] [id number] [address] [place] [address], [place] [address] Apr, [facility] [address] [id number] [address] [place] [address], [place] [address] Apr, [facility] [address] [id number] [address] [place] [address], [place] [address] Apr, [facility] [address] [id number] [address] [place] [address], [place] [address] Apr, [facility] [address] [id number] [address] [place] [address], [place] [address] Apr, [facility] [address] [id number] [address] [place] [address], [place] [address] Apr, [facility] [address] [id number] [address] [place] [address], [place] [address] Apr, [facility] [address] [id number] [address] [place] [address], [place] [address] Apr, [facility] [address] [id number] [address] [place] [address], [place] [address] Apr, [facility] [address] [id number] [address] [place] [address], [place] [address] Apr, [facility] [address] [id number] [address] [place] [address], [place] [address] Apr, [facility] [address] [id number] [address] [place] [address], [place] [address] Apr, [facility] [address] [id number] [address] [place] [address], [place] [address] Apr, [facility] [address] [id number] [address] [place] [address], [place] [address] Mar, [facility] [address] [id number] [address] [place] [address], [place] [address] Mar, [facility] [address] [id number] [address] [place] [address], [place] [address] Mar, [facility] [address] [id number] [address] [place] [address], [place] [address] Mar, [facility] [address] [id number] [address] [place] [address], [place] [address] Feb, [facility] [address] [id number] [address] [place] [address], [place] [address] Feb, [facility] [address] [id number] [address] [place] [address], [place] [address] Feb, [facility] [address] [id number] [address] [place] [address], [place] [address] 05 Feb, 2014 [facility] [address] [id number] [address] [place] [address], [place] [address] Jan, [facility] [address] [id number] [address] [place] [address], [place] [address] Jan, [facility] [address] [id number] [address] [place] [address], [place] [address] Jan, [facility] [address] [id number] [address] [place] [address], [place] [address] Jan, [facility] [address] [id number] [address] [place] [address], [place] [address] Jan, [facility] [address] [id number] [address] [place] [address], [place] [address] Jan, [facility] [address] [id number] [address] [place] [address], [place] [address] Jan, [facility] [address] [id number] [address] [place] [address], [place] [address] Jan, [facility] [address] [id number] [address] [place] [address], [place] [address] Dec, [facility] [address] [id number] [address] [place] [address], [place] [address] 29 Dec, 2013 [facility] [address] [id number] [address] [place] [address], [place] [address] Dec, [facility] [address] [id number] [address] [place] [address], [place] [address] Dec, 2013 [facility] [address] [id number] [address] [place] [address], [place] [address] Oct, [facility] [address] [id number] [address] [place] [address], [place] [address] Oct, [facility] [address] [id number] [address] [place] [address], [place] [address] Oct, [facility] [address] [id number] [facility] [place] [address] Oct, 2013 [facility] [address] [id number] [facility] [place] [address] Oct, 2013 [facility] [address] [id number] [facility] [place] [address] Oct, 2013 [facility] [address] [id number] [address] [place] [address], [place] [address] Oct, 2013 [facility] [address] [id number] [facility] [place] [address] Oct, [facility] [address] [id number] [address] [place] [address], [place] [address] Sep, [facility] [address] [id number] [address] [place] [address], [place] [address] Sep, [facility] [address] [id number] [address] [place] [address], [place] [address] Sep, [facility] [address] [id number] [address] [place] [address], [place] [address] Sep, [facility] [address] [id number] [address] [place] [address], [place] [address] Sep, [facility] [address] [id number] [address] [place] [address], [place] [address] Sep, [facility] [address] [id number] [address] [place] [address], [place] [address] Sep, [facility] [address] [id number] [address] [place] [address], [place] [address] Sep, [facility] [address] [id number] [address] [place] [address], [place] [address] Sep, [facility] [address] [id number] [address] [place] [address], [place] [address] Sep, [facility] [address] [id number] [address] [place] [address], [place] [address] August, [facility] [address] [id number] [address] [place] [address], [place] [address] August, [facility] [address] [id number] [address] [place] [address], [place] [address] August, [facility] [address] [id number] [address] [place] [address], [place] [address] August, [facility] [address] [id number] [address] [place] [address], [place] [address] August, [facility] [address] [id number] [address] [place] [address], [place] [address] August, [facility] [address] [id number] [address] [place] [address], [place] [address] August, [facility] [address] [id number] [address] [place] [address], [place] [address] August, [facility] [address] [id number] [address] [place] [address], [place] [address] August, [facility] [address] [id number] [address] [place] [address], [place] [address] August, [facility] [address] [id number] [address] [place] [address], [place] [address] August, [facility] [address] [id number] [address] [place] [address], [place] [address] August, [facility] [address] [id number] [address] [place] [address], [place] [address] Jul, [facility] [address] [id number] [address] [place] [address], [place] [address] Jul, [facility] [address] [id number] [address] [place] [address], [place] [address] Jul, [facility] [address] [id number] [address] [place] [address], [place] [address] Jul, [facility] [address] [id number] [address] [place] [address], [place] [address] Jul, [facility] [address] [id number] [address] [place] [address], [place] [address] Jul, [facility] [address] [id number] [address] [place] [address], [place] [address] Jun, [facility] [address] [id number] [address] [place] [address], [place] [address] Jun, [facility] [address] [id number] [address] [place] [address], [place] [address] May, [facility] [address] [id number] [address] [place] [address], [place] [address] May, [facility] [address] [id number] [address] [place] [address], [place] [address] Apr, [facility] [address] [id number] [address] [place] [address], [place] [address] Apr, [facility] [address] [id number] [address] [place] [address], [place] [address] Apr, [facility] [address] [id number] [address] [place] [address], [place] [address] Apr, [facility] [address] [id number] [address] [place] [address], [place] [address] Apr, [facility] [address] [id number] [address] [place] [address], [place] [address] Apr, [facility] [address] [id number] [address] [place] [address], [place] [address] Apr, [facility] [address] [id number] [address] [place] [address], [place] [address] Apr, [facility] [address] [id number] [address] [place] [address], [place] [address] Apr, [facility] [address] [id number] [address] [place] [address], [place] [address] Apr, [facility] [address] [id number] [address] [place] [address], [place] [address] Apr, [facility] [address] [id number] [address] [place] [address], [place] [address] Apr, [facility] [address] [id number] [address] [place] [address], [place] [address] Apr, [facility] [address] [id number] [address] [place] [address], [place] [address] Mar, [facility] [address] [id number] [address] [place] [address], [place] [address] Mar, [facility] [address] [id number] [address] [place] [address], [place] [address] Mar, [facility] [address] [id number] [address] [place] [address], [place] [address] Mar, [facility] [address] [id number] [address] [place] [address], [place] [address] Feb, [facility] [address] [id number] [address] [place] [address], [place] [address] Feb, [facility] [address] [id number] [address] [place] [address], [place] [address] Feb, [facility] [address] [id number] [address] [place] [address], [place] [address] Feb, [facility] [address] [id number] [address] [place] [address], [place] [address] Jan, [facility] [address] [id number] [address] [place] [address], [place] [address] Jan, [facility] [address] [id number] [address] [place] [address], [place] [address] Jan, [facility] [address] [id number] [address] [place] [address], [place] [address] Jan, [facility] [address] [id number] [address] [place] [address] [place] [address] Jan, [facility] [address] [id number] [address] [place] [address], [place] [address] Jan, [facility] [address] [id number] [address] [place] [address], [place] [address] Jan, [facility] [address] [id number] [address] [place] [address], [place] [address] Jan, [facility] [address] [id number] [address] [place] [address], [place] [address] Jan, [facility] [address] [id number] [address] [place] [address], [place] [address] 26 Dec, 2012 [facility] [address] [id number] [address] [place] [address], [place] [address] 16 Dec, 2012 [facility] [address] [id number] [address] [place] [address], [place] [address] 16 Dec, 2012 [facility] [address] [id number] [address] [place] [address], [place] [address] 13 Dec, 2012 [facility] [address] [id number] [address] [place] [address], [place] [address] Nov, [facility] [address] [id number] [address] [place] [address], [place] [address] Nov, [facility] [address] [id number] [address] [place] [address], [place] [address] Nov, [facility] [address] [id number] [address] [place] [address], [place] [address] Nov, [facility] [address] [id number] [address] [place] [address], [place] [address] Oct, [facility] [address] [id number] [address] [place] [address], [place] [address] Sep, [facility] [address] [id number] [address] [place] [address], [place] [address] August, [facility] [address] [id number] [address] [place] [address], [place] [address] August, [facility] [address] [id number] [address] [place] [address], [place] [address] August, [facility] [address] [id number] [address] [place] [address], [place] [address] August, [facility] [address] [id number] [address] [place] [address], [place] [address] August, [facility] [address] [id number] [address] [place] [address], [place] [address] August, [facility] [address] [id number] [address] [place] [address], [place] [address] August, [facility] [address] [id number] [address] [place] [address], [place] [address] August, [facility] [address] [id number] [address] [place] [address], [place] [address] August, [facility] [address] [id number] [address] [place] [address], [place] [address] August, [facility] [address] [id number] [address] [place] [address], [place] [address] August, [facility] [address] [id number] [address] [place] [address], [place] [address] August, [facility] [address] [id number] [address] [place] [address], [place] [address] Jul, [facility] [address] [id number] [address] [place] [address], [place] [address] Jul, [facility] [address] [id number] [address] [place] [address], [place] [address] 18 Jul, 2012 [facility] [address] [id number] [address] [place] [address], [place] [address] 15 Jul, 2012 [facility] [address] [id number] [address] [place] [address], [place] [address] Jul, [facility] [address] [id number] [address] [place] [address], [place] [address] Jul, [facility] [address] [id number] [address] [place] [address], [place] [address] Jul, [facility] [address] [id number] [address] [place] [address], [place] [address] Jul, [facility] [address] [id number] [address] [place] [address], [place] [address] Jul, [facility] [address] [id number] [address] [place] [address], [place] [address] Jul, [facility] [address] [id number] [address] [place] [address], [place] [address] Jul, [facility] [address] [id number] [address] [place] [address], [place] [address] Jun, [facility] [address] [id number] [address] [place] [address], [place] [address] Jun, [facility] [address] [id number] [address] [place] [address], [place] [address] Jun, [facility] [address] [id number] [address] [place] [address], [place] [address] Jun, [facility] [address] [id number] [address] [place] [address], [place] [address] May, [facility] [address] [id number] [address] [place] [address], [place] [address] 14 May, 2012 [facility] [address] [id number] [address] [place] [address], [place] [address] 05 May, 2012 [facility] [address] [id number] [address] [place] [address], [place] [address] May, [facility] [address] [id number] [address] [place] [address], [place] [address] May, [facility] [address] [id number] [address] [place] [address], [place] [address] May, [facility] [address] [id number] [address] [place] [address], [place] [address] Apr, [facility] [address] [id number] [address] [place] [address], [place] [address] Apr, [facility] [address] [id number] [address] [place] [address], [place] [address] Apr, [facility] [address] [id number] [address] [place] [address], [place] [address] Apr, [facility] [address] [id number] [address] [place] [address], [place] [address] 15 Mar, 2012 [facility] [address] [id number] [address] [place] [address], [place] [address] 14 Mar, 2012 [facility] [address] [id number] [address] [place] [address], [place] [address] Mar, [facility] [address] [id number] [address] [place] [address], [place] [address] Mar, [facility] [address] [id number] [address] [place] [address], [place] [address] Mar, [facility] [address] [id number] [address] [place] [address], [place] [address] Mar, [facility] [address] [id number] [address] [place] [address], [place] [address] Mar, [facility] [address] [id number] [address] [place] [address], [place] [address] Feb, [facility] [address] [id number] [address] [place] [address], [place] [address] Feb, [facility] [address] [id number] [address] [place] [address], [place] [address] Feb, [facility] [address] [id number] [address] [place] [address], [place] [address] Feb, [facility] [address] [id number] [address] [place] [address], [place] [address] Jan, [facility] [address] [id number] [address] [place] [address], [place] [address] Jan, [facility] [address] [id number] [address] [place] [address], [place] [address] Jan, [facility] [address] [id number] [address] [place] [address], [place] [address] Jan, [facility] [address] [id number] [address] [place] [address], [place] [address] Jan, [facility] [address] [id number] [address] [place] [address], [place] [address] Jan, [facility] [address] [id number] [address] [place] [address], [place] [address] Dec, [facility] [address] [id number] [address] [place] [address], [place] [address] Dec, [facility] [address] [id number] [address] [place] [address], [place] [address] Nov, [facility] [address] [id number] [address] [place] [address], [place] [address] Sep, [facility] [address] [id number] [address] [place] [address], [place] [address] August, [facility] [address] [id number] [address] [place] [address] August, [facility] [address] [id number] [address] [place] [address], [place] [address] August, [facility] [address] [id number] [address] [place] [address], [place] [address] August, [facility] [address] [id number] [address] [place] [address], [place] [address] August, [facility] [address] [id number] [address] [place] [address], [place] [address] 06 Jun, 2011 [facility] [address] [id number] [address] [place] [address], [place] [address] Jun, [facility] [address] [id number] [address] [place] [address], [place] [address] Apr, [facility] [address] [id number] [address] [place] [address], [place] [address] Apr, [facility] [address] [id number] [address] [place] [address], [place] [address] Mar, [facility] [address] [id number] [address] [place] [address], [place] [address] Feb, [facility] [address] [id number] [address] [place] [address], [place] [address] Feb, [facility] [address] [id number] [address] [place] [address], [place] [address] Feb, [facility] [address] [id number] [address] [place] [address], [place] [address] 17 Jan, 2011 [facility] [address] [id number] [address] [place] [address], [place] [address] 15 Jan, 2011 [facility] [address] [id number] [address] [place] [address], [place] [address] 15 Jan, 2011 [facility] [address] [id number] [address] [place] [address], [place] [address] 14 Jan, 2011 [facility] [address] [id number] [address] [place] [address], [place] [address] 15 May, 2010 [facility] [address] [id number] [address] [place] [address], [place] [address] 04 Mar, 2010 [facility] [address] [id number] [address] [place] [address], [place] [address] Oct, [facility] [address] [id number] [address] [place] [address], [place] [address] 14 Sep, 2009 [facility] [address] [facility] [id number] [address] [place] [address] Mar, [facility] [address] [facility] [id number] [address] [place] [address] Jan, [facility] [address] [facility] [id number] [address] [place] [address] Jan, [facility] [address] [facility] [id number] [address] [place] [address] May, IMMUNIZATIONS No Known Immunizations SOCIAL HISTORY Never Assessed REASON FOR VISIT PLAN OF CARE VITAL SIGNS Height 62 in 2012-11-12 Weight 174.47 lbs 2012-11-12 Temperature 97.2 degrees Fahrenheit 2012-11-12 Heart Rate 78 bpm 2012-11-12 Respiratory Rate 16 2012-11-12 Blood pressure systolic 118 mmHg 2012-11-12 Blood pressure diastolic 80 mmHg 2012-11-12 MEDICATIONS Unknown Medications RESULTS No Results PROCEDURES Procedure Date Ordered Result Body Site URINALYSIS, AUTO, W/O SCOPE Nov 12, 2012 INSTRUCTIONS MEDICATIONS ADMINISTERED No Known Medications [...]
--- OUTSIDE RECORDS SUMMARY | 2019-11-23 06:10 | XMS REPORT ---
Author Author Liana Coe Doctor Organization [facility] Address Unknown Phone Unavailable Care Team Providers Care Clinical Support Manager Name Role Phone Migration, Doctor Unavailable Unavailable PROBLEMS Type Condition ICD9-CM Code LMH90-HP Code Onset Dates Condition S tatus SNOMED Code Problem Anxiety F41.9 Active 51452695 Problem Neck pain M54.2 Active 20004791 Problem Neuroforaminal stenosis of spine M99.89 Active 027377691748 Problem Hematuria, unspecified type R31.9 Ac tive 11994452 Problem Seasonal allergies J30.2 Active 4 57546323 Problem Abnormal glucose R73.09 Active 102 375324 Problem Rhinosinusitis J32.9 Active 67860 4004 Problem Abnormal renal ultrasound R93.429 Acti ve [id number] Problem Essential hypertension I10 Active 01244445 Problem Mixed hyperlipidemia E78.2 Active 36399026 Problem Hypokalemia E87.6 Active 10299832 Problem Chronic pain due to trauma G89.21 Act juanis [id number] ALLERGIES No Information ENCOUNTERS Encounter Location Date Diagnosis [facility] [address] [facility] [id number] [address] [place] [address] August, [facility] [address] [place] [id number] [address] [place] [address] August, [facility] [address] [place] [id number] [address] [place] [address] Jul, Neuroforaminal stenosis of s pine M99.89 [facility] [address] [facility] [id number] [address] [place] [address] Jul, Allergic conjunctivitis of b oth eyes H10.13 [facility] [address] [facility] [id number] [address] [place] [address] Jun, Hypokalemia E87.6 [facility] [address] [facility] [id number] [address] [place] [address] 27 Jun, 2019 [facility] [address] [id number] [address] [place] [address] 25 Jun, 2019 Neuroforaminal stenosis of s pine M99.89 [facility] [address] [id number] [address] [place] [address] 19 Jun, 2019 Lateral epicondylitis, left elbow M77.12 and Medial epicondylitis, left elbow M77.02 [facility] [address] [id number] [address] [place] [address] 16 Jun, 2019 Foraminal stenosis of lumbar region M48.061 ; Segmental dysfunction of thoracic region M99.02 ; Segmental dysfunction of lumbar region M99.03 and Segmental dysfunction of sacral region M99.04 [place] [address] [id number] [address] [place] [address] 28 May, 2019 Left elbow pain M25.522 [facility] [address] [id number] [address] [place] [address] May, [facility] [address] [id number] [address] [place] [address] May, Left elbow pain M25.522 [facility] [address] [id number] [address] [place] [address] May, Neuroforaminal stenosis of s pine M99.89 [facility] [address] [id number] [address] [place] [address] May, Rhinosinusitis J32.9 ; Left elbow pain M25.522 and Neck pain M54.2 [facility] [address] [id number] [address] [place] [address] 14 May, 2019 Lateral epicondylitis of lef t elbow M77.12 [facility] [address] [id number] [address] [place] [address] Apr, Neuroforaminal stenosis of s pine M99.89 [facility] [address] [id number] [address] [place] [address] Apr, Essential hypertension I10 a nd Mixed hyperlipidemia E78.2 [facility] [address] [id number] [address] [place] [address] Mar, Neuroforaminal stenosis of s pine M99.89 [facility] [address] [id number] [address] [place] [address] Mar, Epicondylitis, lateral, left M77.12 [facility] [address] [id number] [address] [place] [address] Mar, [facility] [address] [facility] [id number] [address] [place] [address] Mar, Neuroforaminal stenosis of s pine M99.89 [facility] [address] [id number] [address] [place] [address] Feb, Neuroforaminal stenosis of s pine M99.89 ; Essential hypertension I10 ; Mixed hyperlipidemia E78.2 ; Encounter for immunization Z23 and Seasonal allergies J30.2 [facility] [address] [id number] [address] [place] [address] Jan, Neuroforaminal stenosis of s pine M99.89 [facility] [address] [id number] [address] [place] [address] Dec, Neuroforaminal stenosis of s pine M99.89 [facility] [address] [id number] [address] [place] [address] Dec, Neuroforaminal stenosis of s pine M99.89 [facility] [address] [id number] [address] [place] [address] Nov, [facility] [address] [id number] [address] [place] [address] Nov, Neuroforaminal stenosis of s pine M99.89 [facility] [address] [id number] [address] [place] [address] Nov, Acute non-recurrent maxillar y sinusitis J01.00 [facility] [address] [id number] [address] [place] [address] Oct, Hypokalemia E87.6 [facility] [address] [id number] [address] [place] [address] Oct, Wasp sting, undetermined int ent, initial encounter T63.464A and Cellulitis of left lower extremity L03.116 [facility] [address] [id number] [address] [place] [address] Oct, Neuroforaminal stenosis of s pine M99.89 [place] [address] [id number] [address] [place] [address] Sep, [place] [address] [id number] [address] [place] [address] Sep, [facility] [address] [id number] [address] [place] [address] Sep, Routine screening for STI (s exually transmitted infection) Z11.3 [place] [address] [id number] [address] [place] [address] 14 Sep, 2018 Routine screening for STI (s exually transmitted infection) Z11.3 ; Well woman exam with routine gynecological exam Z01.419 and Breast cancer screening Z12.39 [place] [address] [id number] [address] [place] [address] Sep, Neuroforaminal stenosis of s pine M99.89 [facility] [address] [id number] [address] [place] [address] August, Neuroforaminal stenosis of s pine M99.89 [place] [address] [id number] [address] [place] [address] August, Neuroforaminal stenosis of s pine M99.89 ; Chronic pain due to trauma G89.21 and Mixed hyperlipidemia E78.2 [place] [address] [id number] [address] [place] [address] Jul, Viral upper respiratory illn ess J06.9 and Acute non-recurrent frontal sinusitis J01.10 [facility] [address] [id number] [address] [place] [address] Jul, Congestion of nasal sinus R0 9.81 [facility] [address] [id number] [address] [place] [address] Jul, Neuroforaminal stenosis of s pine M99.89 and Essential hypertension I10 [facility] [address] [id number] [address] [place] [address] May, Neuroforaminal stenosis of s pine M99.89 [facility] [address] [id number] [address] [place] [address] May, [facility] [address] [id number] [address] [place] [address] May, Congestion of nasal sinus R0 9.81 [facility] [address] [id number] [address] [place] [address] May, [facility] [address] [id number] [address] [place] [address] Apr, Neuroforaminal stenosis of s pine M99.89 [facility] [address] [id number] [address] [place] [address] Apr, Neuroforaminal stenosis of s pine M99.89 and Chronic pain due to trauma G89.21 [facility] [address] [id number] [address] [place] [address] Mar, UTI (urinary tract infection ) N39.0 [facility] [address] [facility] [id number] [address] [place] [address] Mar, Vertigo R42 [facility] [address] [facility] [id number] [address] [place] [address] Mar, Neuroforaminal stenosis of s pine M99.89 [facility] [address] [id number] [address] [place] [address] Feb, Extensor tendon disruption M 67.89 [facility] [address] [id number] [address] [place] [address] Feb, Neuroforaminal stenosis of s pine M99.89 and High risk medication use Z79.899 [facility] [address] [id number] [address] [place] [address] Jan, Hypokalemia E87.6 [facility] [address] [id number] [address] [place] [address] Jan, Flank pain R10.9 and Acute r ight-sided low back pain without sciatica M54.5 [facility] [address] [facility] [id number] [address] [place] [address] Jan, Hypokalemia E87.6 [facility] [address] [facility] [id number] [address] [place] [address] Jan, [facility] [address] [id number] [address] [place] [address] Jan, URI, acute J06.9 [facility] [address] [id number] [address] [place] [address] Jan, Neuroforaminal stenosis of s pine M99.89 [facility] [address] [facility] [id number] [address] [place] [address] 13 Dec, 2017 Lateral epicondylitis, right elbow M77.11 [facility] [address] [id number] [address] [place] [address] 11 Dec, 2017 Allergic rhinitis due to monica rosalina, unspecified seasonality J30.1 and Allergic conjunctivitis of both eyes H10.13 [facility] [address] [facility] [id number] [address] [place] [address] 10 Dec, 2017 Neuroforaminal stenosis of s pine M99.89 [place] [address] [facility] [id number] [address] [place] [address] Dec, Mixed hyperlipidemia E78.2 [place] [address] [facility] [id number] [address] [place] [address] 05 Dec, 2017 Abnormal glucose R73.09 ; Ab normal renal ultrasound R93.429 ; Dysuria R30.0 ; Cystitis without hematuria N30.90 ; Hypokalemia E87.6 ; Mixed hyperlipidemia E78.2 and Hematuria, unspecified type R31.9 [place] [address] [facility] [id number] [address] [place] [address] Nov, Hypokalemia E87.6 ; Mixed hy perlipidemia E78.2 and Hematuria, unspecified type R31.9 [place] [address] [facility] [id number] [address] [place] [address] Nov, [place] [address] [place] [id number] [address] [place] [address] Nov, Hypokalemia E87.6 [place] [address] [facility] [id number] [address] [place] [address] Nov, [place] [address] [facility] [id number] [address] [place] [address] Nov, Abnormal renal ultrasound R9 3.429 [place] [address] [place] [id number] [address] [place] [address] Nov, Abnormal renal ultrasound R9 3.429 [place] [address] [facility] [id number] [address] [place] [address] Nov, Hematuria, unspecified type R31.9 and Neuroforaminal stenosis of spine M99.89 [place] [address] [facility] [id number] [address] [place] [address] Nov, Dysuria R30.0 [place] [address] [facility] [id number] [address] [place] [address] Oct, Lateral epicondylitis, right elbow M77.11 [facility] [address] [id number] [address] [place] [address] Oct, Neuroforaminal stenosis of s pine M99.89 ; Visit for TB skin test Z11.1 and Essential hypertension I10 [facility] [address] [id number] [address] [place] [address] 16 Oct, 2017 [place] [address] [id number] [address] [place] [address] Oct, Neuroforaminal stenosis of s pine M99.89 [place] [address] [id number] [address] [place] [address] 10 Oct, 2017 Visit for TB skin test Z11.1 [place] [address] [id number] [address] [place] [address] 05 Oct, 2017 Cystitis without hematuria N 30.90 [place] [address] [id number] [address] [place] [address] 28 Sep, 2017 Screening breast examination Z12.39 [place] [address] [id number] [address] [place] [address] 26 Sep, 2017 Dysuria R30.0 and Cystitis w ithout hematuria N30.90 [place] [address] [id number] [address] [place] [address] 14 Sep, 2017 Essential hypertension I10 a nd 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 [place] [address] [id number] [address] [place] [address] 04 Sep, 2017 Abnormal glucose R73.09 [place] [address] [id number] [address] [place] [address] August, Lateral epicondylitis, right elbow M77.11 [place] [address] [id number] [address] [place] [address] August, Screen for STD (sexually tra nsmitted disease) Z11.3 [place] [address] [id number] [address] [place] [address] August, Neuroforaminal stenosis of s jose M99.89 ; Mixed hyperlipidemia E78.2 ; Elevated fasting glucose R73.01 ; Screening mammogram, encounter for Z12.31 and Encounter for well woman exam without gynecological exam Z00.00 [facility] [address] [id number] [address] [place] [address] August, Neuroforaminal stenosis of s jose M99.89 [facility] [address] [id number] [address] [place] [address] August, Essential hypertension I10 ; Hypokalemia E87.6 and Mixed hyperlipidemia E78.2 [place] [address] [id number] [address] [place] [address] Jul, [place] [address] [id number] [address] [place] [address] Jul, Neuroforaminal stenosis of s jose M99.89 [place] [address] [id number] [address] [place] [address] Jul, Lateral epicondylitis, right elbow M77.11 [place] [address] [id number] [address] [place] [address] Jul, [place] [address] [id number] [address] [place] [address] Jun, High ankle sprain of right l ower extremity, initial encounter S93.431A [facility] [address] [id number] [address] [place] [address] Jun, Essential hypertension I10 [facility] [address] [id number] [address] [place] [address] Jun, [place] [address] [id number] [address] [place] [address] Jun, [facility] [address] [id number] [address] [place] [address] Jun, Neuroforaminal stenosis of s jose M99.89 [place] [address] [place] [id number] [address] [place] [address] Jun, Pain of right upper extremit y M79.601 and Essential hypertension I10 [place] [address] [facility] [id number] [address] [place] [address] Jun, [place] [address] [place] [id number] [place] [address] Jun, Dysuria R30.0 ; Acute cystit is with hematuria N30.01 and Screen for STD (sexually transmitted disease) Z11.3 [place] [id number] [place] [address] May, Chronic pain due to trauma G 89.21 [place] [address] [place] [id number] [address] [place] [address] May, Essential hypertension I10 [place] [address] [place] [address] May, Neuroforaminal stenosis of s jose M99.89 [place] [address] [address] Apr, Allergic reaction, initial e ncounter T78.40XA [place] [address] [place] [id number] [place] [address] Apr, Low back pain, unspecified b ack pain laterality, unspecified chronicity, with sciatica presence unspecified M54.5 ; Acute cystitis with hematuria N30.01 ; 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 ; Bilateral acute serous otitis media, recurrence not specified H65.03 ; Mixed hyperlipidemia E78.2 ; Essential hypertension I10 ; Immunization counseling Z71.89 and Encounter for immunization Z23 [place] [address] [place] [id number] [address] [place] [address] Apr, Neck pain M54.2 [place] [address] [place] [id number] [place] [address] Mar, Neuroforaminal stenosis of s pine M99.89 [facility] [address] [id number] [address] [place] [address] Mar, Pharyngitis due to other org anism J02.8 [facility] [address] [id number] [address] [place] [address] Feb, Neuroforaminal stenosis of s pine M99.89 [facility] [address] [id number] [address] [place] [address] Feb, UTI (urinary tract infection ) N39.0 [facility] [address] [id number] [address] [place] [address] Feb, Recent urinary tract infecti on Z87.440 ; Neuroforaminal 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 ; Neck pain M54.2 ; Chronic pain due to trauma G89.21 and Recurrent UTI N39.0 [facility] [address] [id number] [address] [place] [address] Feb, [facility] [address] [id number] [address] [place] [address] Jan, Neuroforaminal stenosis of s pine M99.89 [facility] [address] [id number] [address] [place] [address] Dec, Neuroforaminal stenosis of s pine M99.89 [facility] [address] [id number] [address] [place] [address] 18 Dec, 2016 Acute seasonal allergic rhin itis due to pollen J30.1 [facility] [address] [id number] [address] [place] [address] Dec, [facility] [address] [id number] [address] [place] [address] 08 Dec, 2016 Acute seasonal allergic rhin itis, unspecified trigger J30.2 ; Allergic conjunctivitis of both eyes H10.13 and Dysfunction of both eustachian tubes H69.83 [facility] [address] [id number] [address] [place] [address] Dec, [facility] [address] [id number] [address] [place] [address] Dec, Nevus D22.9 [facility] [address] [id number] [address] [place] [address] Nov, Chronic pain due to trauma G 89.21 and Neuroforaminal stenosis of spine M99.89 [facility] [address] [id number] [address] [place] [address] Nov, Neuroforaminal stenosis of s pine M99.89 ; Essential hypertension I10 ; Mixed hyperlipidemia E78.2 ; Hypokalemia E87.6 ; Neck pain M54.2 and Nevus D22.9 [place] [address] [id number] [address] [place] [address] Oct, Neuroforaminal stenosis of s pine M99.89 [place] [address] [id number] [address] [place] [address] Sep, Neuroforaminal stenosis of s pine M99.89 [place] [address] [id number] [address] [place] [address] Sep, [place] [address] [id number] [address] [place] [address] August, [place] [address] [id number] [address] [place] [address] August, Neck pain M54.2 and Neurofor aminal stenosis of spine M99.89 [facility] [address] [id number] [address] [place] [address] August, Routine gynecological examin ation Z01.419 and Screening breast examination Z12.39 [facility] [address] [id number] [address] [place] [address] Jul, [facility] [address] [id number] [address] [place] [address] Jul, [facility] [address] [id number] [address] [place] [address] Jul, Neuroforaminal stenosis of s jose M99.89 [facility] [address] [id number] [address] [place] [address] Jul, [facility] [address] [id number] [address] [place] [address] Jul, Neuroforaminal stenosis of l umbar 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 [facility] [address] [id number] [address] [place] [address] Jul, [facility] [address] [id number] [address] [place] [address] Jul, [facility] [address] [id number] [address] [place] [address] Jun, Neuroforaminal stenosis of s jose M99.89 [facility] [address] [id number] [address] [place] [address] Jun, Uterine leiomyoma, unspecifi ed location D25.9 and Allergic reaction caused by a drug, initial encounter T78.40XA [facility] [address] [id number] [address] [place] [id number] Jun, [facility] [address] [id number] [address] [place] [phone] May, UTI symptoms R39.9 and Pain of right sacroiliac joint M53.3 [facility] [address] [id number] [address] [place] [id number] May, Neuroforaminal stenosis of s jose M99.89 [facility] [address] [id number] [address] [place] [id number] May, [facility] [address] [id number] [address] [place] [id number] May, Acute mucoid otitis media of left ear H65.112 and Acute non- recurrent maxillary sinusitis J01.00 [place] [address] [facility] [id number] [address] [place] [id number] May, Acute bacterial conjunctivit is of both eyes H10.33 ; Left arm pain M79.602 and Hypokalemia E87.6 [place] [address] [id number] [address] [place] [id number] Apr, [place] [address] [address] [facility] [id number] [address] [place] [id number] Apr, Neuroforaminal stenosis of s pine M99.89 ; Neck pain M54.2 ; Chronic pain due to trauma G89.21 ; Mixed hyperlipidemia E78.2 ; Essential hypertension I10 and Hypokalemia E87.6 [place] [address] [address] [place] [id number] [address] [place] [id number] Mar, Oral candidiasis B37.0 ; Nathaniel roforaminal stenosis of spine M99.89 ; Neck pain M54.2 and Chronic pain due to trauma G89.21 [place] [address] [id number] [address] [place] [id number] Feb, [place] [address] [id number] [address] [place] [id number] Feb, [place] [address] [facility] [id number] [address] [place] [id number] Feb, UTI (urinary tract infection ) N39.0 [facility] [facility] [address] [id number] [address] [place] [address] Feb, Dysuria R30.0 [place] [address] [address] [facility] [id number] [address] [place] [address] Feb, Dysuria R30.0 [facility] [address] [facility] [id number] [address] [place] [address] Feb, Neuroforaminal stenosis of s pine M99.89 ; Neck pain M54.2 ; Essential hypertension I10 ; Chronic pain due to trauma G89.21 ; Dysuria R30.0 ; Abnormal MRI, shoulder R93.8 and Acute cystitis without hematuria N30.00 [facility] [address] [id number] [address] [place] [address] Jan, [facility] [address] [id number] [address] [place] [address] Jan, [facility] [address] [id number] [address] [place] [address] Jan, [facility] [address] [id number] [address] [place] [address] Jan, Abnormal MRI R93.8 [facility] [address] [id number] [address] [place] [address] 29 Dec, 2015 [facility] [address] [id number] [address] [place] [address] 15 Dec, 2015 Acute pain of left shoulder M25.512 [facility] [address] [id number] [address] [place] [address] 09 Dec, 2015 [facility] [address] [id number] [address] [place] [address] 08 Dec, 2015 [facility] [address] [id number] [address] [place] [address] 07 Dec, 2015 Acute pain of left shoulder M25.512 [facility] [address] [id number] [address] [place] [address] Nov, [facility] [address] [id number] [address] [place] [address] Nov, Neuroforaminal stenosis of s pine M99.89 ; Neck pain M54.2 ; Abnormal mammogram R92.8 ; Essential hypertension I10 and Chronic pain due to trauma G89.21 [facility] [address] [id number] [address] [place] [address] Nov, [facility] [address] [id number] [address] [place] [address] Oct, Acute stress disorder F43.0 [facility] [address] [id number] [address] [place] [address] Oct, [facility] [address] [id number] [address] [place] [address] Oct, [facility] [address] [id number] [address] [place] [address] Oct, [facility] [address] [id number] [address] [place] [address] Sep, [facility] [address] [id number] [address] [place] [address] August, [facility] [address] [id number] [address] [place] [address] Jul, Neuroforaminal stenosis of s pine M99.89 ; Neck pain M54.2 ; Abnormal mammogram R92.8 and Essential hypertension I10 [facility] [address] [id number] [address] [place] [address] Jul, [facility] [address] [id number] [address] [place] [address] Jul, [facility] [address] [id number] [address] [place] [address] Jul, Abnormal mammogram R92.8 [facility] [address] [id number] [address] [place] [address] Jul, [facility] [address] [id number] [address] [place] [address] Jul, UTI (urinary tract infection ) N39.0 [facility] [address] [id number] [address] [place] [address] Jul, Dysuria R30.0 [facility] [address] [id number] [address] [place] [address] Jun, [place] [facility] [id number] [address] [place] [address] Jun, [place] [address] [address] [facility] [id number] [address] [place] [address] Jun, Hypokalemia E87.6 and Hematu martina R31.9 [place] [address] [address] [facility] [id number] [address] [place] [address] Jun, Hypokalemia E87.6 [place] [address] [address] [facility] [id number] [address] [place] [address] Jun, [place] [address] [address] [facility] [id number] [address] [place] [address] Jun, Hypokalemia E87.6 [place] [address] [address] [facility] [id number] [address] [place] [address] Jun, Hypokalemia E87.6 [place] [address] [address] [facility] [id number] [address] [place] [address] 15 Jun, 2015 Neuroforaminal stenosis of s pine M99.89 ; Hypokalemia E87.6 ; Neck pain M54.2 ; Essential hypertension I10 ; Mixed hyperlipidemia E78.2 and Screening breast examination Z12.39 [place] [address] [address] [place] [id number] [address] [place] [address] 08 Jun, 2015 Dysuria R30.0 ; UTI (urinary tract infection) N39.0 and Hematuria R31.9 [place] [address] [address] [facility] [id number] [address] [place] [address] May, [place] [address] [address] [facility] [id number] [address] [place] [address] May, High risk sexual behavior Z7 2.51 ; Hypokalemia E87.6 ; Neuroforaminal stenosis of spine M99.89 ; Neck pain M54.2 ; Essential hypertension I10 ; Mixed hyperlipidemia E78.2 ; STD exposure Z20.2 and Concern about STD in female without diagnosis Z71.1 [facility] [address] [place] [id number] [address] [place] [address] 16 May, 2015 Neuroforaminal stenosis of s pine M99.89 ; Neck pain M54.2 ; Hypokalemia E87.6 ; Essential hypertension I10 and Mixed hyperlipidemia E78.2 [facility] [address] [place] [id number] [address] [place] [address] 11 May, 2015 [facility] [address] [id number] 08 May, 2015 High risk sexual behavior Z7 2.51 ; STD exposure Z20.2 and Concern about STD in female without diagnosis Z71.1 [place] [address] [address] 05 May, 2015 [facility] [address] [address] Apr, Neuroforaminal stenosis of s pine M99.89 ; Mixed hyperlipidemia E78.2 ; Essential hypertension I10 and Hypokalemia E87.6 [place] [address] [address] Mar, [facility] [address] [address] Mar, Hypokalemia E87.6 [place] [address] [address] Mar, Neuroforaminal stenosis of s pine M99.89 ; Mixed hyperlipidemia E78.2 ; Neck pain M54.2 ; Essential hypertension I10 ; Abnormal fasting glucose R73.09 ; Hypokalemia E87.6 and Constipation K59.00 [place] [address] [address] [place] [id number] [address] [place] [address] Feb, Neuroforaminal stenosis of s pine M99.89 ; Mixed hyperlipidemia E78.2 ; Neck pain M54.2 ; Essential hypertension I10 ; Abnormal fasting glucose R73.09 ; Hypokalemia E87.6 and Constipation K59.00 [facility] [address] [facility] [id number] [address] [place] [address] Feb, Elevated fasting blood sugar R73.01 [facility] [address] [facility] [id number] [address] [place] [address] Feb, Elevated fasting blood sugar R73.01 [place] [address] [address] [facility] [id number] [address] [place] [address] Feb, Hair loss L65.9 [place] [address] [address] [place] [id number] [address] [place] [address] Feb, Sinusitis J32.9 ; Essential hypertension I10 and Hair loss L65.9 [place] [address] [address] [facility] [id number] [address] [place] [address] Jan, [place] [address] [address] [place] [id number] [place] [address] Jan, Essential hypertension I10 ; Neuroforaminal stenosis of spine M99.89 ; Neck pain M54.2 ; Mixed hyperlipidemia E78.2 and Anxiety F41.9 [place] [address] [address] [place] [id number] [place] [address] Jan, [place] [address] [address] [place] [id number] [place] [address] Jan, Mixed hyperlipidemia E78.2 ; Essential (primary) hypertension I10 ; Strain of muscle, fascia and tendon at neck level, subsequent encounter S16.1XXD and Tension-type headache, unspecified, not intractable G44.209 [place] [address] [address] [facility] [id number] [address] [place] [address] Dec, Lumbar back pain 724.2 and N euroforaminal stenosis of spine 724.00 [place] [address] [address] [facility] [id number] [address] [place] [address] Nov, [place] [address] [address] [place] [id number] [place] [address] Nov, Lumbar back pain 724.2 and N euroforaminal stenosis of spine 724.00 [facility] [address] [id number] [address] [place] [address] Nov, Edema 782.3 ; Lumbar back pa in 724.2 ; Essential hypertension, benign 401.1 ; Hyperlipemia 272.4 ; Neuroforaminal stenosis of spine 724.00 and Post-concussion headache 339.20 [facility] [address] [id number] [address] [place] [address] Nov, [facility] [address] [id number] [address] [place] [address] Nov, [facility] [address] [id number] [address] [place] [address] Oct, Essential hypertension, sheridan gn 401.1 [facility] [address] [id number] [address] [place] [address] Oct, Edema 782.3 ; Lumbar back pa in 724.2 ; Essential hypertension, benign 401.1 ; Hyperlipemia 272.4 ; Neuroforaminal stenosis of spine 724.00 and Post-concussion headache 339.20 [facility] [address] [id number] [address] [place] [address] Oct, [facility] [address] [id number] [address] [place] [address] Oct, Edema 782.3 [facility] [address] [id number] [address] [place] [address] Oct, Lumbar back pain 724.2 [facility] [address] [id number] [address] [place] [address] Oct, Cervicalgia 723.1 ; Lumbar b ack pain 724.2 and High risk medication use V58.69 [facility] [address] [id number] [address] [place] [address] Sep, [facility] [address] [id number] [address] [place] [address] Sep, Lumbar strain 847.2 [facility] [address] [id number] [address] [place] [address] August, Edema 782.3 and Eustachian t ube dysfunction 381.81 [facility] [address] [id number] [address] [place] [address] August, [facility] [address] [id number] [address] [place] [address] August, Eustachian tube dysfunction 381.81 [facility] [address] [id number] [address] [place] [address] Jul, Otalgia 388.70 and Otitis me jonathon 382.9 [facility] [address] [id number] [address] [place] [address] Jul, [facility] [address] [id number] [address] [place] [address] Jul, [facility] [address] [id number] [address] [place] [address] Jul, [facility] [address] [id number] [address] [place] [address] Jul, [facility] [address] [id number] [address] [place] [address] Jul, [facility] [address] [id number] [address] [place] [address] Jun, [facility] [address] [id number] [address] [place] [address] Jun, [facility] [address] [id number] [address] [place] [address] Jun, [facility] [address] [id number] [address] [place] [address] May, [facility] [address] [id number] [address] [place] [address], [place] [address] May, 2014 [facility] [address] [id number] [address] [place] [address], [place] [address] May, 2014 [facility] [address] [id number] [address] [place] [address], [place] [address] May, 2014 [facility] [address] [id number] [address] [place] [address], [place] [address] May, 2014 [facility] [address] [id number] [address] [place] [address], [place] [address] May, 2014 [facility] [address] [id number] [address] [place] [address], [place] [address] May, 2014 [facility] [address] [id number] [address] [place] [address], [place] [address] May, 2014 [facility] [address] [id number] [address] [place] [address], [place] [address] May, 2014 [facility] [address] [id number] [address] [place] [address], [place] [address] May, [facility] [address] [id number] [address] [place] [address], [place] [address] Apr, [facility] [address] [id number] [address] [place] [address], [place] [address] Apr, [facility] [address] [id number] [address] [place] [address], [place] [address] Apr, [facility] [address] [id number] [address] [place] [address], [place] [address] Apr, [facility] [address] [id number] [address] [place] [address], [place] [address] Apr, [facility] [address] [id number] [address] [place] [address], [place] [address] Apr, [facility] [address] [id number] [address] [place] [address], [place] [address] Apr, [facility] [address] [id number] [address] [place] [address], [place] [address] Apr, [facility] [address] [id number] [address] [place] [address], [place] [address] Apr, [facility] [address] [id number] [address] [place] [address], [place] [address] Apr, [facility] [address] [id number] [address] [place] [address], [place] [address] Apr, [facility] [address] [id number] [address] [place] [address], [place] [address] Apr, [facility] [address] [id number] [address] [place] [address], [place] [address] Apr, [facility] [address] [id number] [address] [place] [address], [place] [address] Apr, [facility] [address] [id number] [address] [place] [address], [place] [address] Apr, [facility] [address] [id number] [address] [place] [address], [place] [address] Mar, [facility] [address] [id number] [address] [place] [address], [place] [address] Mar, [facility] [address] [id number] [address] [place] [address], [place] [address] Mar, [facility] [address] [id number] [address] [place] [address], [place] [address] Mar, [facility] [address] [id number] [address] [place] [address], [place] [address] Feb, [facility] [address] [id number] [address] [place] [address], [place] [address] Feb, [facility] [address] [id number] [address] [place] [address], [place] [address] Feb, [facility] [address] [id number] [address] [place] [address], [place] [address] 05 Feb, 2014 [facility] [address] [id number] [address] [place] [address], [place] [address] Jan, [facility] [address] [id number] [address] [place] [address], [place] [address] Jan, [facility] [address] [id number] [address] [place] [address], [place] [address] Jan, [facility] [address] [id number] [address] [place] [address], [place] [address] Jan, [facility] [address] [id number] [address] [place] [address], [place] [address] Jan, [facility] [address] [id number] [address] [place] [address], [place] [address] Jan, [facility] [address] [id number] [address] [place] [address], [place] [address] Jan, [facility] [address] [id number] [address] [place] [address], [place] [address] Jan, [facility] [address] [id number] [address] [place] [address], [place] [address] 29 Dec, 2013 [facility] [address] [id number] [address] [place] [address], [place] [address] 29 Dec, 2013 [facility] [address] [id number] [address] [place] [address], [place] [address] Dec, 2013 [facility] [address] [id number] [address] [place] [address], [place] [address] Dec, 2013 [facility] [address] [id number] [address] [place] [address], [place] [address] Oct, [facility] [address] [id number] [address] [place] [address], [place] [address] Oct, [facility] [address] [id number] [address] [place] [address], [place] [address] Oct, [facility] [address] [id number] [address] [place] [address], [place] [address] Oct, 2013 [facility] [address] [id number] [address] [place] [address], [place] [address] Oct, 2013 [facility] [address] [id number] [address] [place] [address], [place] [address] Oct, 2013 [facility] [address] [id number] [address] [place] [address], [place] [address] Oct, [facility] [address] [id number] [address] [place] [address], [place] [address] Oct, [facility] [address] [id number] [address] [place] [address], [place] [address] Sep, [facility] [address] [id number] [address] [place] [address], [place] [address] Sep, [facility] [address] [id number] [address] [place] [address], [place] [address] Sep, [facility] [address] [id number] [address] [place] [address], [place] [address] Sep, [facility] [address] [id number] [address] [place] [address], [place] [address] Sep, [facility] [address] [id number] [address] [place] [address], [place] [address] Sep, [facility] [address] [id number] [address] [place] [address], [place] [address] Sep, [facility] [address] [id number] [address] [place] [address], [place] [address] Sep, [facility] [address] [id number] [address] [place] [address], [place] [address] Sep, [facility] [address] [id number] [address] [place] [address], [place] [address] Sep, [facility] [address] [id number] [address] [place] [address], [place] [address] August, [facility] [address] [id number] [facility] [place] [address] August, [facility] [address] [id number] [address] [place] [address], [place] [address] August, [facility] [address] [id number] [address] [place] [address], [place] [address] August, [facility] [address] [id number] [address] [place] [address], [place] [address] August, [facility] [address] [id number] [address] [place] [address], [place] [address] August, [facility] [address] [id number] [address] [place] [address], [place] [address] August, [facility] [address] [id number] [address] [place] [address], [place] [address] August, [facility] [address] [id number] [address] [place] [address], [place] [address] August, [facility] [address] [id number] [address] [place] [address], [place] [address] August, [facility] [address] [id number] [address] [place] [address], [place] [address] August, [facility] [address] [id number] [address] [place] [address], [place] [address] August, [facility] [address] [id number] [address] [place] [address], [place] [address] Jul, [facility] [address] [id number] [address] [place] [address], [place] [address] Jul, [facility] [address] [id number] [address] [place] [address], [place] [address] Jul, [facility] [address] [id number] [address] [place] [address], [place] [address] Jul, [facility] [address] [id number] [address] [place] [address], [place] [address] Jul, [facility] [address] [id number] [address] [place] [address], [place] [address] Jul, [facility] [address] [id number] [address] [place] [address], [place] [address] Jun, [facility] [address] [id number] [address] [place] [address], [place] [address] Jun, [facility] [address] [id number] [address] [place] [address], [place] [address] May, [facility] [address] [id number] [address] [place] [address], [place] [address] May, [facility] [address] [id number] [address] [place] [address], [place] [address] Apr, [facility] [address] [id number] [address] [place] [address], [place] [address] Apr, [facility] [address] [id number] [address] [place] [address], [place] [address] Apr, [facility] [address] [id number] [address] [place] [address], [place] [address] Apr, [facility] [address] [id number] [address] [place] [address], [place] [address] Apr, [facility] [address] [id number] [address] [place] [address], [place] [address] Apr, [facility] [address] [id number] [address] [place] [address], [place] [address] Apr, [facility] [address] [id number] [address] [place] [address], [place] [address] Apr, [facility] [address] [id number] [address] [place] [address], [place] [address] Apr, [facility] [address] [id number] [address] [place] [address], [place] [address] Apr, [facility] [address] [id number] [address] [place] [address], [place] [address] Apr, [facility] [address] [id number] [address] [place] [address], [place] [address] Apr, [facility] [address] [id number] [address] [place] [address], [place] [address] Apr, [facility] [address] [id number] [address] [place] [address], [place] [address] Mar, [facility] [address] [id number] [address] [place] [address], [place] [address] Mar, [facility] [address] [id number] [address] [place] [address], [place] [address] Mar, [facility] [address] [id number] [address] [place] [address], [place] [address] Mar, [facility] [address] [id number] [address] [place] [address], [place] [address] Feb, [facility] [address] [id number] [address] [place] [address], [place] [address] Feb, [facility] [address] [id number] [address] [place] [address], [place] [address] Feb, [facility] [address] [id number] [address] [place] [address], [place] [address] Feb, [facility] [address] [id number] [address] [place] [address] 14 Jan, 2013 [facility] [address] [id number] [address] [place] [address], [place] [address] Jan, [facility] [address] [id number] [address] [place] [address], [place] [address] Jan, [facility] [address] [id number] [address] [place] [address], [place] [address] Jan, [facility] [address] [id number] [address] [place] [address], [place] [address] 10 Jan, 2013 [facility] [address] [id number] [address] [place] [address], [place] [address] 10 Jan, 2013 [facility] [address] [id number] [address] [place] [address], [place] [address] Jan, [facility] [address] [id number] [address] [place] [address], [place] [address] Jan, [facility] [address] [id number] [address] [place] [address], [place] [address] Jan, [facility] [address] [id number] [address] [place] [address], [place] [address] 26 Dec, 2012 [facility] [address] [id number] [address] [place] [address], [place] [address] 16 Dec, 2012 [facility] [address] [id number] [address] [place] [address], [place] [address] 16 Dec, 2012 [facility] [address] [id number] [address] [place] [address], [place] [address] 13 Dec, 2012 [facility] [address] [id number] [address] [place] [address], [place] [address] Nov, [facility] [address] [id number] [address] [place] [address], [place] [address] Nov, [facility] [address] [id number] [address] [place] [address], [place] [address] 14 Nov, 2012 [facility] [address] [id number] [address] [place] [address], [place] [address] Nov, [facility] [address] [id number] [address] [place] [address], [place] [address] Oct, [facility] [address] [id number] [address] [place] [address], [place] [address] Sep, [facility] [address] [id number] [address] [place] [address], [place] [address] August, [facility] [address] [id number] [address] [place] [address], [place] [address] August, [facility] [address] [id number] [address] [place] [address], [place] [address] August, [facility] [address] [id number] [address] [place] [address], [place] [address] August, [facility] [address] [id number] [address] [place] [address], [place] [address] August, [facility] [address] [id number] [address] [place] [address], [place] [address] August, [facility] [address] [id number] [address] [place] [address], [place] [address] August, [facility] [address] [id number] [address] [place] [address], [place] [address] August, [facility] [address] [id number] [address] [place] [address], [place] [address] August, [facility] [address] [id number] [address] [place] [address], [place] [address] August, [facility] [address] [id number] [address] [place] [address], [place] [address] August, [facility] [address] [id number] [address] [place] [address], [place] [address] August, [facility] [address] [id number] [address] [place] [address], [place] [address] Jul, [facility] [address] [id number] [address] [place] [address], [place] [address] Jul, [facility] [address] [id number] [address] [place] [address], [place] [address] 18 Jul, 2012 [facility] [address] [id number] [address] [place] [address], [place] [address] 15 Jul, 2012 [facility] [address] [id number] [address] [place] [address], [place] [address] Jul, [facility] [address] [id number] [address] [place] [address], [place] [address] Jul, [facility] [address] [id number] [address] [place] [address], [place] [address] Jul, [facility] [address] [id number] [address] [place] [address], [place] [address] Jul, [facility] [address] [id number] [address] [place] [address], [place] [address] Jul, [facility] [address] [id number] [address] [place] [address], [place] [address] Jul, [facility] [address] [id number] [address] [place] [address], [place] [address] Jul, [facility] [address] [id number] [address] [place] [address], [place] [address] Jun, [facility] [address] [id number] [address] [place] [address], [place] [address] Jun, [facility] [address] [id number] [address] [place] [address], [place] [address] Jun, [facility] [address] [id number] [address] [place] [address], [place] [address] Jun, [facility] [address] [id number] [address] [place] [address], [place] [address] May, [facility] [address] [id number] [address] [place] [address], [place] [address] 14 May, 2012 [facility] [address] [id number] [address] [place] [address], [place] [address] 05 May, 2012 [facility] [address] [id number] [address] [place] [address], [place] [address] May, [facility] [address] [id number] [address] [place] [address], [place] [address] May, [facility] [address] [id number] [address] [place] [address], [place] [address] May, [facility] [address] [id number] [address] [place] [address], [place] [address] Apr, [facility] [address] [id number] [address] [place] [address], [place] [address] Apr, [facility] [address] [id number] [address] [place] [address], [place] [address] Apr, [facility] [address] [id number] [address] [place] [address], [place] [address] Apr, [facility] [address] [id number] [address] [place] [address], [place] [address] 15 Mar, 2012 [facility] [address] [id number] [address] [place] [address], [place] [address] Mar, [facility] [address] [id number] [address] [place] [address], [place] [address] Mar, [facility] [address] [id number] [address] [place] [address], [place] [address] Mar, [facility] [address] [id number] [address] [place] [address], [place] [address] Mar, [facility] [address] [id number] [address] [place] [address], [place] [address] Mar, [facility] [address] [id number] [address] [place] [address], [place] [address] Mar, [facility] [address] [id number] [address] [place] [address], [place] [address] Feb, [facility] [address] [id number] [address] [place] [address], [place] [address] Feb, [facility] [address] [id number] [address] [place] [address], [place] [address] Feb, [facility] [address] [id number] [address] [place] [address], [place] [address] Feb, [facility] [address] [id number] [address] [place] [address], [place] [address] Jan, [facility] [address] [id number] [address] [place] [address], [place] [address] Jan, [facility] [address] [id number] [address] [place] [address], [place] [address] Jan, [facility] [address] [id number] [address] [place] [address], [place] [address] Jan, [facility] [address] [id number] [address] [place] [address], [place] [address] Jan, [facility] [address] [id number] [address] [place] [address], [place] [address] Jan, [facility] [address] [id number] [address] [place] [address], [place] [address] Dec, [facility] [address] [id number] [address] [place] [address], [place] [address] Dec, [facility] [address] [id number] [address] [place] [address], [place] [address] Nov, [facility] [address] [id number] [address] [place] [address], [place] [address] Sep, [facility] [address] [id number] [address] [place] [address], [place] [address] August, [facility] [address] [id number] [address] [place] [address] August, [facility] [address] [id number] [address] [place] [address], [place] [address] August, [facility] [address] [id number] [address] [place] [address], [place] [address] August, [facility] [address] [id number] [address] [place] [address], [place] [address] August, [facility] [address] [id number] [address] [place] [address], [place] [address] 06 Jun, 2011 [facility] [address] [id number] [address] [place] [address], [place] [address] Jun, [facility] [address] [id number] [address] [place] [address], [place] [address] Apr, [facility] [address] [id number] [address] [place] [address], [place] [address] Apr, [facility] [address] [id number] [address] [place] [address], [place] [address] Mar, [facility] [address] [id number] [address] [place] [address], [place] [address] Feb, [facility] [address] [id number] [address] [place] [address], [place] [address] Feb, [facility] [address] [id number] [address] [place] [address], [place] [address] 14 Feb, 2011 [facility] [address] [id number] [address] [place] [address], [place] [address] 17 Jan, 2011 [facility] [address] [id number] [address] [place] [address], [place] [address] 15 Jan, 2011 [facility] [address] [id number] [address] [place] [address], [place] [address] 15 Jan, 2011 [facility] [address] [id number] [address] [place] [address], [place] [address] 14 Jan, 2011 [facility] [address] [id number] [address] [place] [address], [place] [address] 15 May, 2010 [facility] [address] [id number] [address] [place] [address], [place] [address] 04 Mar, 2010 [facility] [address] [id number] [address] [place] [address], [place] [address] Oct, [facility] [address] [id number] [address] [place] [address], [place] [address] 14 Sep, 2009 [facility] [address] [facility] [id number] [address] [place] [address] Mar, [facility] [address] [facility] [id number] [address] [place] [address] Jan, [facility] [address] [facility] [id number] [address] [place] [address] Jan, [facility] [address] [facility] [id number] [address] [place] [address] May, IMMUNIZATIONS No Known Immunizations SOCIAL HISTORY [...]
--- OUTSIDE RECORDS SUMMARY | 2019-11-23 06:11 | XMS REPORT ---
Author Author Liana Valerio [facility] [employer] Address [address] [place] [address] Care Team Providers Care Medical Communication Specialist Name Role Phone JOAN Valerio Unavailable PROBLEMS Type Condition ICD9-CM Code OUE67-ZY Code Onset Dates Condition S tatus SNOMED Code Problem Anxiety F41.9 Active 63483432 Problem Neck pain M54.2 Active 21938194 Problem Neuroforaminal stenosis of spine M99.89 Active 478846925916 Problem Hematuria, unspecified type R31.9 Ac tive 21737174 Problem Seasonal allergies J30.2 Active 4 66302600 Problem Abnormal glucose R73.09 Active 102 713028 Problem Rhinosinusitis J32.9 Active 62875 4004 Problem Abnormal renal ultrasound R93.429 Acti ve [id number] Problem Essential hypertension I10 Active 62602678 Problem Mixed hyperlipidemia E78.2 Active 78378544 Problem Hypokalemia E87.6 Active 60939181 Problem Chronic pain due to trauma G89.21 Act juanis [id number] ALLERGIES No Information ENCOUNTERS Encounter Location Date Diagnosis [place] [address] [facility] [id number] [address] [place] [phone] August, [facility] [address] [facility] [id number] [address] [place] [phone] Jul, Neuroforaminal stenosis of s pine M99.89 [facility] [address] [facility] [id number] [address] [place] [phone] Jul, Allergic conjunctivitis of b oth eyes H10.13 [facility] [address] [facility] [id number] [address] [place] [address] Jun, Hypokalemia E87.6 [place] [address] [id number] [address] [place] [id number] 27 Jun, 2019 [facility] [address] [id number] [address] [place] [phone] 25 Jun, 2019 Neuroforaminal stenosis of s pine M99.89 [facility] [address] [id number] [address] [place] [phone] 19 Jun, 2019 Lateral epicondylitis, left elbow M77.12 and Medial epicondylitis, left elbow M77.02 [facility] [address] [id number] [address] [place] [phone] 16 Jun, 2019 Foraminal stenosis of lumbar region M48.061 ; Segmental dysfunction of thoracic region M99.02 ; Segmental dysfunction of lumbar region M99.03 and Segmental dysfunction of sacral region M99.04 [place] [address] [id number] [address] [place] [phone] 28 May, 2019 Left elbow pain M25.522 [facility] [address] [facility] [id number] [address] [place] [phone] May, [facility] [address] [id number] [address] [place] [phone] May, Left elbow pain M25.522 [facility] [address] [id number] [address] [place] [phone] May, Neuroforaminal stenosis of s pine M99.89 [facility] [address] [facility] [id number] [address] [place] [phone] May, Rhinosinusitis J32.9 ; Left elbow pain M25.522 and Neck pain M54.2 [facility] [address] [id number] [address] [place] [phone] 14 May, 2019 Lateral epicondylitis of lef t elbow M77.12 [facility] [address] [id number] [address] [place] [phone] Apr, Neuroforaminal stenosis of s pine M99.89 [facility] [address] [id number] [address] [place] [phone] Apr, Essential hypertension I10 a nd Mixed hyperlipidemia E78.2 [facility] [address] [id number] [address] [place] [phone] Mar, Neuroforaminal stenosis of s pine M99.89 [facility] [address] [id number] [address] [place] [phone] Mar, Epicondylitis, lateral, left M77.12 [facility] [address] [id number] [address] [place] [phone] Mar, [facility] [address] [facility] [id number] [address] [place] [phone] Mar, Neuroforaminal stenosis of s pine M99.89 [facility] [address] [id number] [address] [place] [address] Feb, Neuroforaminal stenosis of s pine M99.89 ; Essential hypertension I10 ; Mixed hyperlipidemia E78.2 ; Encounter for immunization Z23 and Seasonal allergies J30.2 [facility] [address] [id number] [address] [place] [phone] Jan, Neuroforaminal stenosis of s pine M99.89 [facility] [address] [id number] [address] [place] [phone] Dec, Neuroforaminal stenosis of s pine M99.89 [facility] [address] [id number] [address] [place] [phone] Dec, Neuroforaminal stenosis of s pine M99.89 [facility] [address] [id number] [address] [place] [phone] Nov, [facility] [address] [id number] [address] [place] [phone] Nov, Neuroforaminal stenosis of s pine M99.89 [facility] [address] [id number] [address] [place] [phone] Nov, Acute non-recurrent maxillar y sinusitis J01.00 [facility] [address] [facility] [id number] [address] [place] [phone] Oct, Hypokalemia E87.6 [facility] [address] [facility] [id number] [address] [place] [phone] Oct, Wasp sting, undetermined int ent, initial encounter T63.464A and Cellulitis of left lower extremity L03.116 [facility] [address] [id number] [address] [place] [phone] Oct, Neuroforaminal stenosis of s pine M99.89 [place] [address] [facility] [id number] [address] [place] [address] Sep, [place] [address] [facility] [id number] [address] [place] [phone] Sep, [facility] [address] [facility] [id number] [address] [place] [phone] Sep, Routine screening for STI (s exually transmitted infection) Z11.3 [place] [address] [facility] [id number] [address] [place] [phone] 14 Sep, 2018 Routine screening for STI (s exually transmitted infection) Z11.3 ; Well woman exam with routine gynecological exam Z01.419 and Breast cancer screening Z12.39 [place] [address] [facility] [id number] [address] [place] [address] Sep, Neuroforaminal stenosis of s pine M99.89 [facility] [address] [facility] [id number] [address] [place] [phone] August, Neuroforaminal stenosis of s pine M99.89 [place] [address] [facility] [id number] [address] [place] [address] August, Neuroforaminal stenosis of s pine M99.89 ; Chronic pain due to trauma G89.21 and Mixed hyperlipidemia E78.2 [place] [address] [id number] [address] [place] [phone] Jul, Viral upper respiratory illn ess J06.9 and Acute non-recurrent frontal sinusitis J01.10 [facility] [address] [id number] [address] [place] [phone] Jul, Congestion of nasal sinus R0 9.81 [facility] [address] [id number] [address] [place] [address] Jul, Neuroforaminal stenosis of s pine M99.89 and Essential hypertension I10 [facility] [address] [id number] [address] [place] [address] May, Neuroforaminal stenosis of s pine M99.89 [facility] [address] [id number] [address] [place] [phone] May, [facility] [address] [id number] [address] [place] [address] May, Congestion of nasal sinus R0 9.81 [facility] [address] [id number] [address] [place] [address] May, [facility] [address] [id number] [address] [place] [address] Apr, Neuroforaminal stenosis of s pine M99.89 [facility] [address] [id number] [address] [place] [id number] Apr, Neuroforaminal stenosis of s pine M99.89 and Chronic pain due to trauma G89.21 [facility] [address] [id number] [address] [place] [address] Mar, UTI (urinary tract infection ) N39.0 [facility] [address] [id number] [address] [place] [phone] Mar, Vertigo R42 [facility] [address] [id number] [address] [place] [address] Mar, Neuroforaminal stenosis of s pine M99.89 [facility] [address] [id number] [address] [place] [address] Feb, Extensor tendon disruption M 67.89 [facility] [address] [id number] [address] [place] [phone] Feb, Neuroforaminal stenosis of s pine M99.89 and High risk medication use Z79.899 [facility] [address] [id number] [address] [place] [address] Jan, Hypokalemia E87.6 [facility] [address] [id number] [address] [place] [phone] Jan, Flank pain R10.9 and Acute r ight-sided low back pain without sciatica M54.5 [facility] [address] [id number] [address] [place] [phone] Jan, Hypokalemia E87.6 [facility] [address] [id number] [address] [place] [phone] Jan, [facility] [address] [id number] [address] [place] [phone] Jan, URI, acute J06.9 [facility] [address] [id number] [address] [place] [id number] 05 Jan, 2018 Neuroforaminal stenosis of s pine M99.89 [facility] [address] [id number] [address] [place] [id number] 13 Dec, 2017 Lateral epicondylitis, right elbow M77.11 [facility] [address] [id number] [address] [place] [phone] 11 Dec, 2017 Allergic rhinitis due to monica rosalina, unspecified seasonality J30.1 and Allergic conjunctivitis of both eyes H10.13 [facility] [address] [id number] [address] [place] [phone] 10 Dec, 2017 Neuroforaminal stenosis of s pine M99.89 [place] [address] [facility] [id number] [address] [place] [address] Dec, Mixed hyperlipidemia E78.2 [place] [address] [facility] [id number] [address] [place] [address] 05 Dec, 2017 Abnormal glucose R73.09 ; Ab normal renal ultrasound R93.429 ; Dysuria R30.0 ; Cystitis without hematuria N30.90 ; Hypokalemia E87.6 ; Mixed hyperlipidemia E78.2 and Hematuria, unspecified type R31.9 [place] [address] [facility] [id number] [address] [place] [address] Nov, Hypokalemia E87.6 ; Mixed hy perlipidemia E78.2 and Hematuria, unspecified type R31.9 [place] [address] [facility] [id number] [address] [place] [phone] Nov, [place] [address] [facility] [id number] [address] [place] [address] Nov, Hypokalemia E87.6 [place] [address] [facility] [id number] [address] [place] [phone] Nov, [place] [address] [facility] [id number] [address] [place] [phone] Nov, Abnormal renal ultrasound R9 3.429 [place] [address] [facility] [id number] [address] [place] [address] Nov, Abnormal renal ultrasound R9 3.429 [place] [address] 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 [id number] [address] [place] [phone] Nov, Dysuria R30.0 [place] [address] [facility] [id number] [address] [place] [address] Oct, Lateral epicondylitis, right elbow M77.11 [facility] [address] [id number] [address] [place] [phone] Oct, Neuroforaminal stenosis of s pine M99.89 ; Visit for TB skin test Z11.1 and Essential hypertension I10 [facility] [address] [id number] [address] [place] [phone] 16 Oct, 2017 [facility] [address] [id number] [address] [place] [address] Oct, Neuroforaminal stenosis of s pine M99.89 [facility] [address] [id number] [address] [place] [phone] 10 Oct, 2017 Visit for TB skin test Z11.1 [place] [id number] [id number] [address] [place] [phone] 05 Oct, 2017 Cystitis without hematuria N 30.90 [place] [address] [id number] [address] [place] [address] 28 Sep, 2017 Screening breast examination Z12.39 [place] [id number] [id number] [address] [place] [phone] 26 Sep, 2017 Dysuria R30.0 and Cystitis w ithout hematuria N30.90 [place] [address] [id number] [address] [place] [address] 14 Sep, 2017 Essential hypertension I10 a nd 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 [facility] [address] [id number] [address] [place] [address] Sep, Abnormal glucose R73.09 [place] [address] [id number] [address] [place] [address] August, Lateral epicondylitis, right elbow M77.11 [facility] [address] [id number] [address] [place] [phone] August, Screen for STD (sexually tra nsmitted disease) Z11.3 [place] [id number] [id number] [address] [place] [address] August, Neuroforaminal stenosis of s jose M99.89 ; Mixed hyperlipidemia E78.2 ; Elevated fasting glucose R73.01 ; Screening mammogram, encounter for Z12.31 and Encounter for well woman exam without gynecological exam Z00.00 [facility] [address] [id number] [address] [place] [address] August, Neuroforaminal stenosis of s jose M99.89 [place] [address] [id number] [address] [place] [address] August, Essential hypertension I10 ; Hypokalemia E87.6 and Mixed hyperlipidemia E78.2 [place] [address] [id number] [address] [place] [address] Jul, [place] [address] [id number] [address] [place] [address] Jul, Neuroforaminal stenosis of s jose M99.89 [place] [address] [id number] [address] [place] [address] Jul, Lateral epicondylitis, right elbow M77.11 [place] [address] [id number] [address] [place] [address] Jul, [place] [address] [id number] [address] [place] [address] Jun, High ankle sprain of right l ower extremity, initial encounter S93.431A [place] [address] [id number] [address] [place] [address] Jun, Essential hypertension I10 [place] [address] [id number] [address] [place] [address] Jun, [place] [address] [id number] [address] [place] [address] Jun, [place] [address] [id number] [address] [place] [id number] Jun, Neuroforaminal stenosis of s pine M99.89 [place] [address] [facility] [id number] [address] [place] [phone] Jun, Pain of right upper extremit y M79.601 and Essential hypertension I10 [place] [address] [facility] [id number] [address] [place] [address] Jun, [place] [address] [place] [id number] [place] [address] Jun, Dysuria R30.0 ; Acute cystit is with hematuria N30.01 and Screen for STD (sexually transmitted disease) Z11.3 [place] [address] [facility] [id number] [address] [place] [address] May, Chronic pain due to trauma G 89.21 [place] [address] [place] [id number] [address] [place] [address] May, Essential hypertension I10 [place] [address] [place] [id number] [address] [place] [address] May, Neuroforaminal stenosis of s jose M99.89 [place] [address] [place] [id number] [address] [place] [address] Apr, Allergic reaction, initial e ncounter T78.40XA [place] [address] [place] [id number] [address] [place] [address] Apr, Low back pain, unspecified b ack pain laterality, unspecified chronicity, with sciatica presence unspecified M54.5 ; Acute cystitis with hematuria N30.01 ; 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 ; Bilateral acute serous otitis media, recurrence not specified H65.03 ; Mixed hyperlipidemia E78.2 ; Essential hypertension I10 ; Immunization counseling Z71.89 and Encounter for immunization Z23 [place] [address] [place] [id number] [address] [place] [address] Apr, Neck pain M54.2 [place] [address] [place] [id number] [address] [place] [address] Mar, Neuroforaminal stenosis of s pine M99.89 [facility] [address] [id number] [address] [place] [address] Mar, Pharyngitis due to other org anism J02.8 [facility] [address] [id number] [address] [place] [address] Feb, Neuroforaminal stenosis of s pine M99.89 [facility] [address] [id number] [address] [place] [address] Feb, UTI (urinary tract infection ) N39.0 [facility] [address] [id number] [address] [place] [address] Feb, Recent urinary tract infecti on Z87.440 ; 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 ; Neck pain M54.2 ; Chronic pain due to trauma G89.21 and Recurrent UTI N39.0 [facility] [address] [id number] [address] [place] [address] Feb, [facility] [address] [id number] [address] [place] [phone] Jan, Neuroforaminal stenosis of s pine M99.89 [facility] [address] [id number] [address] [place] [address] Dec, Neuroforaminal stenosis of s pine M99.89 [facility] [address] [id number] [address] [place] [phone] 18 Dec, 2016 Acute seasonal allergic rhin itis due to pollen J30.1 [facility] [address] [id number] [address] [place] [phone] 08 Dec, 2016 [facility] [address] [id number] [address] [place] [phone] 08 Dec, 2016 Acute seasonal allergic rhin itis, unspecified trigger J30.2 ; Allergic conjunctivitis of both eyes H10.13 and Dysfunction of both eustachian tubes H69.83 [place] [address] [id number] [address] [place] [phone] 07 Dec, 2016 [facility] [address] [id number] [address] [place] [phone] Dec, Nevus D22.9 [facility] [address] [id number] [address] [place] [address] Nov, Chronic pain due to trauma G 89.21 and 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 [facility] [address] [id number] [address] [place] [address] Nov, Neuroforaminal stenosis of s pine M99.89 ; Essential hypertension I10 ; Mixed hyperlipidemia E78.2 ; Hypokalemia E87.6 ; Neck pain M54.2 and Nevus D22.9 [place] [address] [id number] [address] [place] [address] Oct, Neuroforaminal stenosis of s pine M99.89 [place] [address] [id number] [address] [place] [phone] Sep, Neuroforaminal stenosis of s pine M99.89 [place] [address] [id number] [address] [place] [address] Sep, [place] [address] [id number] [address] [place] [address] August, [place] [address] [id number] [address] [place] [phone] August, Neck pain M54.2 and Neurofor aminal stenosis of spine M99.89 [place] [address] [id number] [address] [place] [address] August, Routine gynecological examin ation Z01.419 and Screening breast examination Z12.39 [facility] [address] [id number] [address] [place] [phone] Jul, [place] [address] [id number] [address] [place] [phone] Jul, [facility] [address] [id number] [address] [place] [address] Jul, Neuroforaminal stenosis of s jose M99.89 [facility] [address] [id number] [address] [place] [id number] Jul, [facility] [address] [id number] [address] [place] [phone] Jul, Neuroforaminal stenosis of l umbar 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 [facility] [address] [id number] [address] [place] [address] Jul, [facility] [address] [id number] [address] [place] [phone] Jul, [facility] [address] [id number] [address] [place] [id number] Jun, Neuroforaminal stenosis of s jose M99.89 [facility] [address] [id number] [address] [place] [phone] Jun, Uterine leiomyoma, unspecifi ed location D25.9 and Allergic reaction caused by a drug, initial encounter T78.40XA [facility] [address] [id number] [address] [place] [id number] Jun, [facility] [address] [id number] [address] [place] [id number] May, UTI symptoms R39.9 and Pain of right sacroiliac joint M53.3 [facility] [address] [id number] [address] [place] [phone] May, Neuroforaminal stenosis of s jose M99.89 [facility] [address] [id number] [address] [place] [phone] May, [facility] [address] [id number] [address] [place] [id number] May, Acute mucoid otitis media of left ear H65.112 and Acute non- recurrent maxillary sinusitis J01.00 [place] [address] [facility] [id number] [address] [place] [id number] May, Acute bacterial conjunctivit is of both eyes H10.33 ; Left arm pain M79.602 and Hypokalemia E87.6 [place] [address] [id number] [address] [place] [phone] Apr, [place] [address] [id number] [address] [place] [phone] Apr, Neuroforaminal stenosis of s pine M99.89 ; Neck pain M54.2 ; Chronic pain due to trauma G89.21 ; Mixed hyperlipidemia E78.2 ; Essential hypertension I10 and Hypokalemia E87.6 [place] [address] [id number] [address] [place] [id number] Mar, Oral candidiasis B37.0 ; Nathaniel roforaminal stenosis of spine M99.89 ; Neck pain M54.2 and Chronic pain due to trauma G89.21 [place] [address] [id number] [address] [place] [id number] Feb, [place] [address] [id number] [address] [place] [phone] Feb, [place] [address] [id number] [address] [place] [id number] Feb, UTI (urinary tract infection ) N39.0 [place] [id number] [id number] [address] [place] [phone] Feb, Dysuria R30.0 [place] [address] [facility] [id number] [address] [place] [address] Feb, Dysuria R30.0 [facility] [address] [id number] [address] [place] [address] Feb, Neuroforaminal stenosis of s pine M99.89 ; Neck pain M54.2 ; Essential hypertension I10 ; Chronic pain due to trauma G89.21 ; Dysuria R30.0 ; Abnormal MRI, shoulder R93.8 and Acute cystitis without hematuria N30.00 [facility] [address] [id number] [address] [place] [phone] Jan, [facility] [address] [id number] [address] [place] [phone] Jan, [facility] [address] [id number] [address] [place] [phone] Jan, [facility] [address] [id number] [address] [place] [phone] Jan, Abnormal MRI R93.8 [facility] [address] [id number] [address] [place] [phone] 29 Dec, 2015 [facility] [address] [id number] [address] [place] [id number] 15 Dec, 2015 Acute pain of left shoulder M25.512 [facility] [address] [id number] [address] [place] [phone] 09 Dec, 2015 [facility] [address] [id number] [address] [place] [address] 08 Dec, 2015 [facility] [address] [id number] [address] [place] [address] 07 Dec, 2015 Acute pain of left shoulder M25.512 [facility] [address] [id number] [address] [place] [phone] Nov, [facility] [address] [id number] [address] [place] [address] Nov, Neuroforaminal stenosis of s pine M99.89 ; Neck pain M54.2 ; Abnormal mammogram R92.8 ; Essential hypertension I10 and Chronic pain due to trauma G89.21 [facility] [address] [id number] [address] [place] [phone] Nov, [facility] [address] [id number] [address] [place] [address] Oct, Acute stress disorder F43.0 [facility] [address] [id number] [address] [place] [phone] Oct, [facility] [address] [id number] [address] [place] [phone] Oct, [facility] [address] [id number] [address] [place] [phone] Oct, [facility] [address] [id number] [address] [place] [phone] Sep, [facility] [address] [id number] [address] [place] [address] August, [facility] [address] [id number] [address] [place] [address] Jul, Neuroforaminal stenosis of s pine M99.89 ; Neck pain M54.2 ; Abnormal mammogram R92.8 and Essential hypertension I10 [facility] [address] [id number] [address] [place] [address] Jul, [facility] [address] [id number] [address] [place] [phone] Jul, [facility] [address] [id number] [address] [place] [address] Jul, Abnormal mammogram R92.8 [facility] [address] [id number] [address] [place] [phone] Jul, [facility] [address] [id number] [address] [place] [phone] Jul, UTI (urinary tract infection ) N39.0 [facility] [address] [id number] [address] [place] [phone] Jul, Dysuria R30.0 [facility] [address] [id number] [address] [place] [phone] Jun, [facility] [address] [facility] [id number] [address] [place] [phone] Jun, [facility] [address] [facility] [id number] [address] [place] [address] Jun, Hypokalemia E87.6 and Hematu martina R31.9 [place] [address] [facility] [id number] [address] [place] [phone] Jun, Hypokalemia E87.6 [place] [address] [facility] [id number] [address] [place] [phone] Jun, [place] [address] [facility] [id number] [address] [place] [phone] Jun, Hypokalemia E87.6 [place] [address] [facility] [id number] [address] [place] [address] Jun, Hypokalemia E87.6 [place] [address] [facility] [id number] [address] [place] [address] 15 Jun, 2015 Neuroforaminal stenosis of s pine M99.89 ; Hypokalemia E87.6 ; Neck pain M54.2 ; Essential hypertension I10 ; Mixed hyperlipidemia E78.2 and Screening breast examination Z12.39 [place] [address] [address] [place] [id number] [address] [place] [phone] Jun, Dysuria R30.0 ; UTI (urinary tract infection) N39.0 and Hematuria R31.9 [place] [address] [facility] [id number] [address] [place] [phone] May, [place] [address] [place] [id number] [address] [place] [address] May, High risk sexual behavior Z7 2.51 ; Hypokalemia E87.6 ; Neuroforaminal stenosis of spine M99.89 ; Neck pain M54.2 ; Essential hypertension I10 ; Mixed hyperlipidemia E78.2 ; STD exposure Z20.2 and Concern about STD in female without diagnosis Z71.1 [facility] [address] [place] [id number] [address] [place] [address] 16 May, 2015 Neuroforaminal stenosis of s pine M99.89 ; Neck pain M54.2 ; Hypokalemia E87.6 ; Essential hypertension I10 and Mixed hyperlipidemia E78.2 [facility] [address] [place] [id number] [address] [place] [phone] 11 May, 2015 [facility] [address] [address] 08 May, 2015 High risk sexual behavior Z7 2.51 ; STD exposure Z20.2 and Concern about STD in female without diagnosis Z71.1 [facility] [address] [phone] 05 May, 2015 [facility] [address] [address] Apr, Neuroforaminal stenosis of s pine M99.89 ; Mixed hyperlipidemia E78.2 ; Essential hypertension I10 and Hypokalemia E87.6 [place] [address] [phone] Mar, [facility] [address] [address] Mar, Hypokalemia E87.6 [place] [address] [address] Mar, Neuroforaminal stenosis of s pine M99.89 ; Mixed hyperlipidemia E78.2 ; Neck pain M54.2 ; Essential hypertension I10 ; Abnormal fasting glucose R73.09 ; Hypokalemia E87.6 and Constipation K59.00 [facility] [address] [place] [id number] [address] [place] [address] Feb, Neuroforaminal stenosis of s pine M99.89 ; Mixed hyperlipidemia E78.2 ; Neck pain M54.2 ; Essential hypertension I10 ; Abnormal fasting glucose R73.09 ; Hypokalemia E87.6 and Constipation K59.00 [place] [id number] [facility] [id number] [address] [place] [phone] Feb, Elevated fasting blood sugar R73.01 [place] [id number] [facility] [id number] [address] [place] [phone] Feb, Elevated fasting blood sugar R73.01 [place] [address] [place] [id number] [address] [place] [phone] Feb, Hair loss L65.9 [place] [address] [place] [id number] [place] [address] Feb, Sinusitis J32.9 ; Essential hypertension I10 and Hair loss L65.9 [place] [address] [place] [id number] [address] [place] [phone] Jan, [place] [address] [place] [id number] [place] [address] Jan, Essential hypertension I10 ; Neuroforaminal stenosis of spine M99.89 ; Neck pain M54.2 ; Mixed hyperlipidemia E78.2 and Anxiety F41.9 [place] [address] [place] [id number] [place] [address] Jan, [place] [address] [place] [id number] [place] [address] Jan, Mixed hyperlipidemia E78.2 ; Essential (primary) hypertension I10 ; Strain of muscle, fascia and tendon at neck level, subsequent encounter S16.1XXD and Tension-type headache, unspecified, not intractable G44.209 [place] [address] [facility] [id number] [address] [place] [phone] Dec, Lumbar back pain 724.2 and N euroforaminal stenosis of spine 724.00 [place] [address] [place] [id number] [address] [place] [phone] Nov, [place] [address] [place] [id number] [place] [address] Nov, Lumbar back pain 724.2 and N euroforaminal stenosis of spine 724.00 [facility] [address] [id number] [address] [place] [address] Nov, Edema 782.3 ; Lumbar back pa in 724.2 ; Essential hypertension, benign 401.1 ; Hyperlipemia 272.4 ; Neuroforaminal stenosis of spine 724.00 and Post-concussion headache 339.20 [facility] [address] [id number] [address] [place] [phone] Nov, [facility] [address] [id number] [address] [place] [phone] Nov, [facility] [address] [id number] [address] [place] [phone] Oct, Essential hypertension, [place] gn 401.1 [facility] [address] [id number] [address] [place] [address] Oct, Edema 782.3 ; Lumbar back pa in 724.2 ; Essential hypertension, benign 401.1 ; Hyperlipemia 272.4 ; Neuroforaminal stenosis of spine 724.00 and Post-concussion headache 339.20 [facility] [address] [id number] [address] [place] [phone] Oct, [facility] [address] [id number] [address] [place] [phone] Oct, Edema 782.3 [facility] [address] [id number] [address] [place] [phone] Oct, Lumbar back pain 724.2 [facility] [address] [id number] [address] [place] [phone] Oct, Cervicalgia 723.1 ; Lumbar b ack pain 724.2 and High risk medication use V58.69 [facility] [address] [id number] [address] [place] [phone] Sep, [place] [id number] [id number] [address] [place] [address] Sep, Lumbar strain 847.2 [facility] [address] [id number] [address] [place] [phone] August, Edema 782.3 and Eustachian t ube dysfunction 381.81 [facility] [address] [id number] [address] [place] [address] August, [facility] [address] [id number] [address] [place] [id number] August, Eustachian tube dysfunction 381.81 [facility] [address] [id number] [address] [place] [phone] Jul, Otalgia 388.70 and Otitis me jonathon 382.9 [facility] [address] [id number] [address] [place] [phone] Jul, [facility] [address] [id number] [address] [place] [phone] Jul, [facility] [address] [id number] [address] [place] [phone] Jul, [facility] [address] [id number] [address] [place] [phone] Jul, [facility] [address] [id number] [address] [place] [phone] Jul, [facility] [address] [id number] [address] [place] [phone] Jun, [facility] [address] [id number] [address] [place] [phone] Jun, [facility] [address] [id number] [address] [place] [phone] Jun, [facility] [address] [id number] [address] [place] [phone] May, [facility] [address] [id number] [address] [place] [address], [place] [address] May, 2014 [facility] [address] [id number] [address] [place] [address], [place] [address] May, 2014 [facility] [address] [id number] [address] [place] [address], [place] [address] May, 2014 [facility] [address] [id number] [address] [place] [address], [place] [address] May, 2014 [facility] [address] [id number] [address] [place] [address], [place] [address] May, 2014 [facility] [address] [id number] [address] [place] [address], [place] [address] May, 2014 [facility] [address] [id number] [address] [place] [address], [place] [address] May, 2014 [facility] [address] [id number] [address] [place] [address], [place] [address] May, [facility] [address] [id number] [address] [place] [address], [place] [address] May, [facility] [address] [id number] [address] [place] [address], [place] [address] Apr, [facility] [address] [id number] [address] [place] [address], [place] [address] Apr, [facility] [address] [id number] [address] [place] [address], [place] [address] Apr, [facility] [address] [id number] [address] [place] [address], [place] [address] Apr, [facility] [address] [id number] [address] [place] [address], [place] [address] Apr, [facility] [address] [id number] [address] [place] [address], [place] [address] Apr, [facility] [address] [id number] [address] [place] [address], [place] [address] Apr, [facility] [address] [id number] [address] [place] [address], [place] [address] Apr, [facility] [address] [id number] [address] [place] [address], [place] [address] Apr, [facility] [address] [id number] [address] [place] [address], [place] [address] Apr, [facility] [address] [id number] [address] [place] [address], [place] [address] Apr, [facility] [address] [id number] [address] [place] [address], [place] [address] Apr, [facility] [address] [id number] [address] [place] [address], [place] [address] Apr, [facility] [address] [id number] [address] [place] [address], [place] [address] Apr, [facility] [address] [id number] [address] [place] [address], [place] [address] Apr, [facility] [address] [id number] [address] [place] [address], [place] [address] Mar, [facility] [address] [id number] [address] [place] [address], [place] [address] Mar, [facility] [address] [id number] [address] [place] [address], [place] [address] Mar, [facility] [address] [id number] [address] [place] [address], [place] [address] Mar, [facility] [address] [id number] [address] [place] [address], [place] [address] Feb, [facility] [address] [id number] [address] [place] [address], [place] [address] Feb, [facility] [address] [id number] [address] [place] [address], [place] [address] Feb, [facility] [address] [id number] [address] [place] [address], [place] [address] 05 Feb, 2014 [facility] [address] [id number] [address] [place] [address], [place] [address] Jan, [facility] [address] [id number] [address] [place] [address], [place] [address] Jan, [facility] [address] [id number] [address] [place] [address], [place] [address] Jan, [facility] [address] [id number] [address] [place] [address], [place] [address] Jan, [facility] [address] [id number] [address] [place] [address], [place] [address] Jan, [facility] [address] [id number] [address] [place] [address], [place] [address] Jan, [facility] [address] [id number] [address] [place] [address], [place] [address] Jan, [facility] [address] [id number] [address] [place] [address], [place] [address] Jan, [facility] [address] [id number] [address] [place] [address], [place] [address] Dec, [facility] [address] [id number] [address] [place] [address], [place] [address] 29 Dec, 2013 [facility] [address] [id number] [address] [place] [address], [place] [address] Dec, [facility] [address] [id number] [address] [place] [address], [place] [address] Dec, [facility] [address] [id number] [address] [place] [address], [place] [address] Oct, [facility] [address] [id number] [address] [place] [address], [place] [address] 14 Oct, 2013 [facility] [address] [id number] [address] [place] [address], [place] [address] Oct, [facility] [address] [id number] [facility] [address] Oct, [facility] [address] [id number] [address] [place] [address], [place] [address] Oct, [facility] [address] [id number] [address] [place] [address], [place] [address] Oct, 2013 [facility] [address] [id number] [address] [place] [address], [place] [address] Oct, [facility] [address] [id number] [address] [place] [address], [place] [address] Oct, [facility] [address] [id number] [address] [place] [address], [place] [address] Sep, [facility] [address] [id number] [address] [place] [address], [place] [address] Sep, [facility] [address] [id number] [address] [place] [address], [place] [address] Sep, [facility] [address] [id number] [address] [place] [address], [place] [address] Sep, [facility] [address] [id number] [address] [place] [address], [place] [address] Sep, [facility] [address] [id number] [address] [place] [address], [place] [address] Sep, [facility] [address] [id number] [address] [place] [address], [place] [address] Sep, [facility] [address] [id number] [address] [place] [address], [place] [address] Sep, [facility] [address] [id number] [address] [place] [address], [place] [address] Sep, [facility] [address] [id number] [address] [place] [address], [place] [address] Sep, [facility] [address] [id number] [address] [place] [address], [place] [address] August, [facility] [address] [id number] [address] [place] [address], [place] [address] August, [facility] [address] [id number] [address] [place] [address], [place] [address] August, [facility] [address] [id number] [address] [place] [address], [place] [address] August, [facility] [address] [id number] [address] [place] [address], [place] [address] August, [facility] [address] [id number] [address] [place] [address], [place] [address] August, [facility] [address] [id number] [address] [place] [address], [place] [address] August, [facility] [address] [id number] [address] [place] [address], [place] [address] August, [facility] [address] [id number] [address] [place] [address], [place] [address] August, [facility] [address] [id number] [address] [place] [address], [place] [address] August, [facility] [address] [id number] [address] [place] [address], [place] [address] August, [facility] [address] [id number] [address] [place] [address], [place] [address] August, [facility] [address] [id number] [address] [place] [address], [place] [address] Jul, [facility] [address] [id number] [address] [place] [address], [place] [address] Jul, [facility] [address] [id number] [address] [place] [address], [place] [address] Jul, [facility] [address] [id number] [address] [place] [address], [place] [address] Jul, [facility] [address] [id number] [address] [place] [address], [place] [address] Jul, [facility] [address] [id number] [address] [place] [address], [place] [address] Jul, [facility] [address] [id number] [address] [place] [address], [place] [address] Jun, [facility] [address] [id number] [address] [place] [address], [place] [address] Jun, [facility] [address] [id number] [address] [place] [address], [place] [address] May, [facility] [address] [id number] [address] [place] [address], [place] [address] May, [facility] [address] [id number] [address] [place] [address], [place] [address] Apr, [facility] [address] [id number] [address] [place] [address], [place] [address] Apr, [facility] [address] [id number] [address] [place] [address], [place] [address] Apr, [facility] [address] [id number] [address] [place] [address], [place] [address] Apr, [facility] [address] [id number] [address] [place] [address], [place] [address] Apr, [facility] [address] [id number] [address] [place] [address], [place] [address] Apr, [facility] [address] [id number] [address] [place] [address], [place] [address] Apr, [facility] [address] [id number] [address] [place] [address], [place] [address] Apr, [facility] [address] [id number] [address] [place] [address], [place] [address] Apr, [facility] [address] [id number] [address] [place] [address], [place] [address] Apr, [facility] [address] [id number] [address] [place] [address], [place] [address] Apr, [facility] [address] [id number] [address] [place] [address], [place] [address] Apr, [facility] [address] [id number] [address] [place] [address], [place] [address] Apr, [facility] [address] [id number] [address] [place] [address], [place] [address] Mar, [facility] [address] [id number] [address] [place] [address], [place] [address] Mar, [facility] [address] [id number] [address] [place] [address], [place] [address] Mar, [facility] [address] [id number] [address] [place] [address], [place] [address] Mar, [facility] [address] [id number] [address] [place] [address], [place] [address] Feb, [facility] [address] [id number] [address] [place] [address], [place] [address] Feb, [facility] [address] [id number] [address] [place] [address], [place] [address] Feb, [facility] [address] [id number] [place] [address] Feb, [facility] [address] [id number] [address] [place] [address] Jan, [facility] [address] [id number] [address] [place] [address], [place] [address] Jan, [facility] [address] [id number] [address] [place] [address], [place] [address] Jan, [facility] [address] [id number] [address] [place] [address], [place] [address] Jan, [facility] [address] [id number] [address] [place] [address], [place] [address] Jan, [facility] [address] [id number] [address] [place] [address], [place] [address] Jan, [facility] [address] [id number] [address] [place] [address], [place] [address] Jan, [facility] [address] [id number] [address] [place] [address], [place] [address] Jan, [facility] [address] [id number] [address] [place] [address], [place] [address] Jan, [facility] [address] [id number] [address] [place] [address], [place] [address] 26 Dec, 2012 [facility] [address] [id number] [address] [place] [address], [place] [address] 16 Dec, 2012 [facility] [address] [id number] [address] [place] [address], [place] [address] 16 Dec, 2012 [facility] [address] [id number] [address] [place] [address], [place] [address] 13 Dec, 2012 [facility] [address] [id number] [address] [place] [address], [place] [address] Nov, [facility] [address] [id number] [address] [place] [address], [place] [address] 17 Nov, 2012 [facility] [address] [id number] [address] [place] [address], [place] [address] 14 Nov, 2012 [facility] [address] [id number] [address] [place] [address], [place] [address] Nov, [facility] [address] [id number] [address] [place] [address], [place] [address] Oct, [facility] [address] [id number] [address] [place] [address], [place] [address] Sep, [facility] [address] [id number] [address] [place] [address], [place] [address] August, [facility] [address] [id number] [address] [place] [address], [place] [address] August, [facility] [address] [id number] [address] [place] [address], [place] [address] August, [facility] [address] [id number] [address] [place] [address], [place] [address] August, [facility] [address] [id number] [address] [place] [address], [place] [address] August, [facility] [address] [id number] [address] [place] [address], [place] [address] August, [facility] [address] [id number] [address] [place] [address], [place] [address] August, [facility] [address] [id number] [address] [place] [address], [place] [address] August, [facility] [address] [id number] [address] [place] [address], [place] [address] August, [facility] [address] [id number] [address] [place] [address], [place] [address] August, [facility] [address] [id number] [address] [place] [address], [place] [address] August, [facility] [address] [id number] [address] [place] [address], [place] [address] August, [facility] [address] [id number] [address] [place] [address], [place] [address] Jul, [facility] [address] [id number] [address] [place] [address], [place] [address] Jul, [facility] [address] [id number] [address] [place] [address], [place] [address] Jul, [facility] [address] [id number] [address] [place] [address], [place] [address] Jul, [facility] [address] [id number] [address] [place] [address], [place] [address] Jul, [facility] [address] [id number] [address] [place] [address], [place] [address] Jul, [facility] [address] [id number] [address] [place] [address], [place] [address] Jul, [facility] [address] [id number] [address] [place] [address], [place] [address] Jul, [facility] [address] [id number] [address] [place] [address], [place] [address] Jul, [facility] [address] [id number] [address] [place] [address], [place] [address] Jul, [facility] [address] [id number] [address] [place] [address], [place] [address] Jul, [facility] [address] [id number] [address] [place] [address], [place] [address] Jun, [facility] [address] [id number] [address] [place] [address], [place] [address] Jun, [facility] [address] [id number] [address] [place] [address], [place] [address] Jun, [facility] [address] [id number] [address] [place] [address], [place] [address] Jun, [facility] [address] [id number] [address] [place] [address], [place] [address] May, [facility] [address] [id number] [address] [place] [address], [place] [address] 14 May, 2012 [facility] [address] [id number] [address] [place] [address], [place] [address] 05 May, 2012 [facility] [address] [id number] [address] [place] [address], [place] [address] May, [facility] [address] [id number] [address] [place] [address], [place] [address] May, [facility] [address] [id number] [address] [place] [address], [place] [address] May, [facility] [address] [id number] [address] [place] [address], [place] [address] Apr, [facility] [address] [id number] [address] [place] [address], [place] [address] Apr, [facility] [address] [id number] [address] [place] [address], [place] [address] Apr, [facility] [address] [id number] [address] [place] [address], [place] [address] Apr, [facility] [address] [id number] [address] [place] [address], [place] [address] Mar, [facility] [address] [id number] [address] [place] [address], [place] [address] Mar, [facility] [address] [id number] [address] [place] [address], [place] [address] Mar, [facility] [address] [id number] [address] [place] [address], [place] [address] Mar, [facility] [address] [id number] [address] [place] [address], [place] [address] Mar, [facility] [address] [id number] [address] [place] [address], [place] [address] Mar, [facility] [address] [id number] [address] [place] [address], [place] [address] Mar, [facility] [address] [id number] [address] [place] [address], [place] [address] Feb, [facility] [address] [id number] [address] [place] [address], [place] [address] Feb, [facility] [address] [id number] [address] [place] [address], [place] [address] Feb, [facility] [address] [id number] [place] [address] Feb, [facility] [address] [id number] [address] [place] [address], [place] [address] Jan, [facility] [address] [id number] [address] [place] [address], [place] [address] Jan, [facility] [address] [id number] [address] [place] [address], [place] [address] Jan, [facility] [address] [id number] [address] [place] [address], [place] [address] Jan, [facility] [address] [id number] [address] [place] [address], [place] [address] Jan, [facility] [address] [id number] [address] [place] [address], [place] [address] Jan, [facility] [address] [id number] [address] [place] [address], [place] [address] Dec, [facility] [address] [id number] [address] [place] [address], [place] [address] Dec, [facility] [address] [id number] [address] [place] [address], [place] [address] Nov, [facility] [address] [id number] [address] [place] [address], [place] [address] Sep, [facility] [address] [id number] [address] [place] [address], [place] [address] August, [facility] [address] [id number] [address] [place] [address] August, [facility] [address] [id number] [address] [place] [address], [place] [address] August, [facility] [address] [id number] [address] [place] [address], [place] [address] August, [facility] [address] [id number] [address] [place] [address], [place] [address] August, [facility] [address] [id number] [address] [place] [address], [place] [address] Jun, [facility] [address] [id number] [address] [place] [address], [place] [address] Jun, [facility] [address] [id number] [address] [place] [address], [place] [address] Apr, [facility] [address] [id number] [address] [place] [address], [place] [address] Apr, [facility] [address] [id number] [address] [place] [address], [place] [address] Mar, [facility] [address] [id number] [address] [place] [address], [place] [address] Feb, [facility] [address] [id number] [address] [place] [address], [place] [address] Feb, [facility] [address] [id number] [address] [place] [address], [place] [address] Feb, [facility] [address] [id number] [address] [place] [address], [place] [address] 17 Jan, 2011 [facility] [address] [id number] [address] [place] [address], [place] [address] 15 Jan, 2011 [facility] [address] [id number] [address] [place] [address], [place] [address] 15 Jan, 2011 [facility] [address] [id number] [address] [place] [address], [place] [address] 14 Jan, 2011 [facility] [address] [id number] [address] [place] [address], [place] [address] 15 May, 2010 [facility] [address] [id number] [address] [place] [address], [place] [address] 04 Mar, 2010 [facility] [address] [id number] [address] [place] [address], [place] [address] Oct, [facility] [address] [id number] [address] [place] [address], [place] [address] Sep, [facility] [address] [facility] [id number] [address] [place] [address] Mar, [facility] [address] [facility] [id number] [address] [place] [address] Jan, [facility] [address] [facility] [id number] [address] [place] [address] Jan, [facility] [address] [facility] [id number] [address] [place] [address] May, IMMUNIZATIONS No Known Immunizations SOCIAL HISTORY [...]
--- OUTSIDE RECORDS SUMMARY | 2019-11-23 06:11 | XMS REPORT ---
Author Author Liana Madsen Organization [facility] [place] Address [address] [place] [address] Care Team Providers Care Dike Supervisor Name Role Phone RAFA Madsen Unavailable PROBLEMS Type Condition ICD9-CM Code EVL29-MP Code Onset Dates Condition S tatus SNOMED Code Problem Anxiety F41.9 Active 68652493 Problem Neck pain M54.2 Active 48668359 Problem Neuroforaminal stenosis of spine M99.89 Active [id number] Problem Hematuria, unspecified type R31.9 Ac tive 42217861 Problem Seasonal allergies J30.2 Active 4 18601312 Problem Abnormal glucose R73.09 Active 102 127573 Problem Rhinosinusitis J32.9 Active 31458 4004 Problem Abnormal renal ultrasound R93.429 Acti ve [id number] Problem Essential hypertension I10 Active 52106330 Problem Mixed hyperlipidemia E78.2 Active 62238294 Problem Hypokalemia E87.6 Active 99386667 Problem Chronic pain due to trauma G89.21 Act juanis [id number] ALLERGIES No Information ENCOUNTERS Encounter Location Date Diagnosis [place] [address] [facility] [id number] [address] [place] [phone] August, [facility] [place] [address] [facility] [id number] [address] [place] [phone] Jul, Neuroforaminal stenosis of s pine M99.89 [facility] [place] [address] [facility] [id number] [address] [place] [phone] Jul, Allergic conjunctivitis of b oth eyes H10.13 [facility] [place] [address] [facility] [id number] [address] [place] [phone] Jun, Hypokalemia E87.6 [place] [address] [id number] [address] [place] [phone] 27 Jun, 2019 [facility] [place] [address] [id number] [address] [place] [id number] 25 Jun, 2019 Neuroforaminal stenosis of s pine M99.89 [facility] [place] [address] [id number] [address] [place] [id number] 19 Jun, 2019 Lateral epicondylitis, left elbow M77.12 and Medial epicondylitis, left elbow M77.02 [facility] [place] [address] [id number] [address] [place] [phone] 16 Jun, 2019 Foraminal stenosis of lumbar region M48.061 ; Segmental dysfunction of thoracic region M99.02 ; Segmental dysfunction of lumbar region M99.03 and Segmental dysfunction of sacral region M99.04 [place] [address] [id number] [address] [place] [phone] 28 May, 2019 Left elbow pain M25.522 [facility] [place] [address] [facility] [id number] [address] [place] [phone] May, [facility] [place] [address] [id number] [address] [place] [phone] May, Left elbow pain M25.522 [facility] [place] [address] [id number] [address] [place] [phone] May, Neuroforaminal stenosis of s pine M99.89 [facility] [place] [address] [facility] [id number] [address] [place] [phone] May, Rhinosinusitis J32.9 ; Left elbow pain M25.522 and Neck pain M54.2 [facility] [place] [address] [id number] [address] [place] [id number] 14 May, 2019 Lateral epicondylitis of lef t elbow M77.12 [facility] [place] [address] [id number] [address] [place] [phone] Apr, Neuroforaminal stenosis of s pine M99.89 [facility] [place] [address] [id number] [address] [place] [phone] Apr, Essential hypertension I10 a nd Mixed hyperlipidemia E78.2 [facility] [place] [address] [id number] [address] [place] [phone] Mar, Neuroforaminal stenosis of s pine M99.89 [facility] [place] [address] [id number] [address] [place] [phone] Mar, Epicondylitis, lateral, left M77.12 [facility] [place] [address] [id number] [address] [place] [id number] Mar, [facility] [place] [address] [facility] [id number] [address] [place] [phone] Mar, Neuroforaminal stenosis of s pine M99.89 [facility] [place] [address] [id number] [address] [place] [phone] Feb, Neuroforaminal stenosis of s pine M99.89 ; Essential hypertension I10 ; Mixed hyperlipidemia E78.2 ; Encounter for immunization Z23 and Seasonal allergies J30.2 [facility] [place] [address] [id number] [address] [place] [phone] Jan, Neuroforaminal stenosis of s pine M99.89 [facility] [place] [address] [id number] [address] [place] [id number] Dec, Neuroforaminal stenosis of s pine M99.89 [facility] [place] [address] [id number] [address] [place] [id number] Dec, Neuroforaminal stenosis of s pine M99.89 [facility] [place] [address] [id number] [address] [place] [id number] Nov, [facility] [place] [address] [id number] [address] [place] [phone] Nov, Neuroforaminal stenosis of s pine M99.89 [facility] [place] [address] [id number] [address] [place] [phone] Nov, Acute non-recurrent maxillar y sinusitis J01.00 [facility] [place] [address] [facility] [id number] [address] [place] [id number] Oct, Hypokalemia E87.6 [facility] [address] [facility] [id number] [address] [place] [phone] Oct, Wasp sting, undetermined int ent, initial encounter T63.464A and Cellulitis of left lower extremity L03.116 [facility] [place] [address] [id number] [address] [place] [phone] Oct, Neuroforaminal stenosis of s pine M99.89 [place] [address] [facility] [id number] [address] [place] [phone] Sep, [place] [address] [facility] [id number] [address] [place] [phone] Sep, [facility] [place] [address] [facility] [id number] [address] [place] [phone] Sep, Routine screening for STI (s exually transmitted infection) Z11.3 [place] [address] [facility] [id number] [address] [place] [phone] 14 Sep, 2018 Routine screening for STI (s exually transmitted infection) Z11.3 ; Well woman exam with routine gynecological exam Z01.419 and Breast cancer screening Z12.39 [place] [address] [facility] [id number] [address] [place] [phone] Sep, Neuroforaminal stenosis of s pine M99.89 [facility] [place] [address] [facility] [id number] [address] [place] [id number] August, Neuroforaminal stenosis of s pine M99.89 [place] [address] [facility] [id number] [address] [place] [phone] August, Neuroforaminal stenosis of s pine M99.89 ; Chronic pain due to trauma G89.21 and Mixed hyperlipidemia E78.2 [place] [address] [id number] [address] [place] [phone] Jul, Viral upper respiratory illn ess J06.9 and Acute non-recurrent frontal sinusitis J01.10 [facility] [place] [address] [id number] [address] [place] [phone] Jul, Congestion of nasal sinus R0 9.81 [facility] [place] [address] [id number] [address] [place] [phone] Jul, Neuroforaminal stenosis of s pine M99.89 and Essential hypertension I10 [facility] [place] [address] [id number] [address] [place] [id number] May, Neuroforaminal stenosis of s pine M99.89 [facility] [place] [address] [id number] [address] [place] [phone] May, [facility] [place] [address] [id number] [address] [place] [id number] May, Congestion of nasal sinus R0 9.81 [facility] [place] [address] [id number] [address] [place] [phone] May, [facility] [place] [address] [id number] [address] [place] [phone] Apr, Neuroforaminal stenosis of s pine M99.89 [facility] [place] [address] [id number] [address] [place] [phone] Apr, Neuroforaminal stenosis of s pine M99.89 and Chronic pain due to trauma G89.21 [facility] [place] [address] [id number] [address] [place] [id number] Mar, UTI (urinary tract infection ) N39.0 [facility] [place] [address] [id number] [address] [place] [phone] Mar, Vertigo R42 [facility] [place] [address] [id number] [address] [place] [phone] Mar, Neuroforaminal stenosis of s pine M99.89 [facility] [place] [address] [id number] [address] [place] [phone] Feb, Extensor tendon disruption M 67.89 [facility] [place] [address] [id number] [address] [place] [id number] Feb, Neuroforaminal stenosis of s pine M99.89 and High risk medication use Z79.899 [facility] [place] [address] [id number] [address] [place] [phone] Jan, Hypokalemia E87.6 [facility] [place] [address] [id number] [address] [place] [phone] Jan, Flank pain R10.9 and Acute r ight-sided low back pain without sciatica M54.5 [facility] [place] [address] [id number] [address] [place] [phone] Jan, Hypokalemia E87.6 [facility] [place] [address] [id number] [address] [place] [phone] Jan, [facility] [place] [address] [id number] [address] [place] [phone] Jan, URI, acute J06.9 [facility] [place] [address] [id number] [address] [place] [id number] 05 Jan, 2018 Neuroforaminal stenosis of s pine M99.89 [facility] [place] [address] [id number] [address] [place] [phone] 13 Dec, 2017 Lateral epicondylitis, right elbow M77.11 [facility] [place] [address] [id number] [address] [place] [phone] 11 Dec, 2017 Allergic rhinitis due to monica rosalina, unspecified seasonality J30.1 and Allergic conjunctivitis of both eyes H10.13 [facility] [place] [address] [id number] [address] [place] [phone] 10 Dec, 2017 Neuroforaminal stenosis of s pine M99.89 [place] [address] [facility] [id number] [address] [place] [phone] Dec, Mixed hyperlipidemia E78.2 [place] [address] [facility] [id number] [address] [place] [phone] 05 Dec, 2017 Abnormal glucose R73.09 ; Ab normal renal ultrasound R93.429 ; Dysuria R30.0 ; Cystitis without hematuria N30.90 ; Hypokalemia E87.6 ; Mixed hyperlipidemia E78.2 and Hematuria, unspecified type R31.9 [place] [address] [facility] [id number] [address] [place] [phone] Nov, Hypokalemia E87.6 ; Mixed hy perlipidemia E78.2 and Hematuria, unspecified type R31.9 [place] [address] [facility] [id number] [address] [place] [phone] Nov, [place] [address] [facility] [id number] [address] [place] [phone] Nov, Hypokalemia E87.6 [place] [address] [facility] [id number] [address] [place] [phone] Nov, [place] [address] [facility] [id number] [address] [place] [phone] Nov, Abnormal renal ultrasound R9 3.429 [place] [address] [facility] [id number] [address] [place] [phone] Nov, Abnormal renal ultrasound R9 3.429 [place] [address] [facility] [id number] [address] [place] [phone] Nov, Hematuria, unspecified type R31.9 and Neuroforaminal stenosis of spine M99.89 [place] [address] [facility] [id number] [address] [place] [phone] Nov, Dysuria R30.0 [place] [address] [facility] [id number] [address] [place] [phone] Oct, Lateral epicondylitis, right elbow M77.11 [facility] [place] [address] [id number] [address] [place] [phone] Oct, Neuroforaminal stenosis of s pine M99.89 ; Visit for TB skin test Z11.1 and Essential hypertension I10 [facility] [address] [id number] [address] [place] [phone] 16 Oct, 2017 [facility] [address] [id number] [address] [place] [phone] Oct, Neuroforaminal stenosis of s pine M99.89 [facility] [place] [address] [id number] [address] [place] [phone] 10 Oct, 2017 Visit for TB skin test Z11.1 [place] [address] [id number] [address] [place] [phone] 05 Oct, 2017 Cystitis without hematuria N 30.90 [place] [address] [id number] [address] [place] [phone] 28 Sep, 2017 Screening breast examination Z12.39 [place] [address] [id number] [address] [place] [phone] 26 Sep, 2017 Dysuria R30.0 and Cystitis w ithout hematuria N30.90 [place] [address] [id number] [address] [place] [phone] 14 Sep, 2017 Essential hypertension I10 a nd 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 [facility] [place] [address] [id number] [address] [place] [phone] Sep, Abnormal glucose R73.09 [place] [address] [id number] [address] [place] [phone] August, Lateral epicondylitis, right elbow M77.11 [facility] [address] [id number] [address] [place] [phone] August, Screen for STD (sexually tra nsmitted disease) Z11.3 [place] [address] [id number] [address] [place] [phone] August, Neuroforaminal stenosis of s jose M99.89 ; Mixed hyperlipidemia E78.2 ; Elevated fasting glucose R73.01 ; Screening mammogram, encounter for Z12.31 and Encounter for well woman exam without gynecological exam Z00.00 [facility] [address] [id number] [address] [place] [id number] August, Neuroforaminal stenosis of s jose M99.89 [place] [address] [id number] [address] [place] [id number] August, Essential hypertension I10 ; Hypokalemia E87.6 and Mixed hyperlipidemia E78.2 [place] [address] [id number] [address] [place] [phone] Jul, [place] [address] [id number] [address] [place] [id number] Jul, Neuroforaminal stenosis of s jose M99.89 [place] [address] [id number] [address] [place] [phone] Jul, Lateral epicondylitis, right elbow M77.11 [place] [address] [id number] [address] [place] [phone] Jul, [place] [address] [id number] [address] [place] [id number] Jun, High ankle sprain of right l ower extremity, initial encounter S93.431A [place] [address] [id number] [address] [place] [phone] Jun, Essential hypertension I10 [place] [address] [id number] [address] [place] [phone] Jun, [place] [address] [id number] [address] [place] [phone] Jun, [place] [address] [id number] [address] [place] [id number] Jun, Neuroforaminal stenosis of s pine M99.89 [place] [address] [facility] [id number] [address] [place] [phone] Jun, Pain of right upper extremit y M79.601 and Essential hypertension I10 [place] [address] [facility] [id number] [address] [place] [phone] Jun, [place] [address] [place] [id number] [place] [phone] Jun, Dysuria R30.0 ; Acute cystit is with hematuria N30.01 and Screen for STD (sexually transmitted disease) Z11.3 [place] [address] [facility] [id number] [address] [place] [phone] May, Chronic pain due to trauma G 89.21 [place] [address] [place] [id number] [address] [place] [id number] May, Essential hypertension I10 [place] [address] [place] [id number] [address] [place] [phone] May, Neuroforaminal stenosis of s jose M99.89 [place] [address] [place] [id number] [address] [place] [id number] Apr, Allergic reaction, initial e ncounter T78.40XA [place] [address] [place] [id number] [address] [place] [id number] Apr, Low back pain, unspecified b ack pain laterality, unspecified chronicity, with sciatica presence unspecified M54.5 ; Acute cystitis with hematuria N30.01 ; 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 ; Bilateral acute serous otitis media, recurrence not specified H65.03 ; Mixed hyperlipidemia E78.2 ; Essential hypertension I10 ; Immunization counseling Z71.89 and Encounter for immunization Z23 [place] [address] [place] [id number] [address] [place] [phone] Apr, Neck pain M54.2 [place] [address] [place] [id number] [address] [place] [id number] Mar, Neuroforaminal stenosis of s pine M99.89 [facility] [address] [id number] [address] [place] [phone] Mar, Pharyngitis due to other org anism J02.8 [facility] [address] [id number] [address] [place] [phone] Feb, Neuroforaminal stenosis of s pine M99.89 [facility] [address] [id number] [address] [place] [phone] Feb, UTI (urinary tract infection ) N39.0 [facility] [address] [id number] [address] [place] [address] Feb, Recent urinary tract infecti on Z87.440 ; Neuroforaminal stenosis of spine M99.89 ; Neck pain M54.2 ; Chronic pain due to trauma G89.21 and Recurrent UTI N39.0 [facility] [address] [id number] [address] [place] [phone] Feb, [facility] [address] [id number] [address] [place] [phone] Jan, Neuroforaminal stenosis of s pine M99.89 [facility] [address] [id number] [address] [place] [id number] Dec, Neuroforaminal stenosis of s pine M99.89 [facility] [address] [id number] [address] [place] [id number] 18 Dec, 2016 Acute seasonal allergic rhin itis due to pollen J30.1 [facility] [place] [address] [id number] [address] [place] [id number] 08 Dec, 2016 [facility] [place] [address] [id number] [address] [place] [phone] 08 Dec, 2016 Acute seasonal allergic rhin itis, unspecified trigger J30.2 ; Allergic conjunctivitis of both eyes H10.13 and Dysfunction of both eustachian tubes H69.83 [place] [address] [id number] [address] [place] [id number] 07 Dec, 2016 [facility] [place] [address] [id number] [address] [place] [phone] Dec, Nevus D22.9 [facility] [place] [address] [id number] [address] [place] [id number] Nov, Chronic pain due to trauma G 89.21 and 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 [facility] [place] [address] [id number] [address] [place] [phone] Nov, Neuroforaminal stenosis of s pine M99.89 ; Essential hypertension I10 ; Mixed hyperlipidemia E78.2 ; Hypokalemia E87.6 ; Neck pain M54.2 and Nevus D22.9 [place] [address] [id number] [address] [place] [phone] Oct, Neuroforaminal stenosis of s pine M99.89 [place] [address] [id number] [address] [place] [phone] Sep, Neuroforaminal stenosis of s pine M99.89 [place] [address] [id number] [address] [place] [phone] Sep, [place] [address] [id number] [address] [place] [phone] August, [place] [address] [id number] [address] [place] [phone] August, Neck pain M54.2 and Neurofor aminal stenosis of spine M99.89 [place] [address] [id number] [address] [place] [phone] August, Routine gynecological examin ation Z01.419 and Screening breast examination Z12.39 [facility] [place] [address] [address] [id number] [address] [place] [phone] Jul, [place] [address] [id number] [address] [place] [phone] Jul, [facility] [place] [address] [id number] [address] [place] [phone] Jul, Neuroforaminal stenosis of s jose M99.89 [facility] [place] [address] [id number] [address] [place] [phone] Jul, [facility] [place] [address] [id number] [address] [place] [phone] Jul, Neuroforaminal stenosis of l umbar 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 [facility] [place] [address] [id number] [address] [place] [id number] Jul, [facility] [place] [address] [id number] [address] [place] [id number] Jul, [facility] [place] [address] [id number] [address] [place] [phone] Jun, Neuroforaminal stenosis of s jose M99.89 [facility] [place] [address] [id number] [address] [place] [phone] Jun, Uterine leiomyoma, unspecifi ed location D25.9 and Allergic reaction caused by a drug, initial encounter T78.40XA [facility] [place] [address] [id number] [address] [place] [phone] Jun, [facility] [place] [address] [id number] [address] [place] [phone] May, UTI symptoms R39.9 and Pain of right sacroiliac joint M53.3 [facility] [place] [address] [id number] [address] [place] [phone] May, Neuroforaminal stenosis of s jose M99.89 [facility] [place] [address] [id number] [address] [place] [phone] May, [facility] [place] [address] [id number] [address] [place] [phone] May, Acute mucoid otitis media of left ear H65.112 and Acute non- recurrent maxillary sinusitis J01.00 [place] [address] [facility] [id number] [address] [place] [phone] May, Acute bacterial conjunctivit is of both eyes H10.33 ; Left arm pain M79.602 and Hypokalemia E87.6 [place] [address] [id number] [address] [place] [phone] Apr, [place] [address] [id number] [address] [place] [phone] Apr, Neuroforaminal stenosis of s pine M99.89 ; Neck pain M54.2 ; Chronic pain due to trauma G89.21 ; Mixed hyperlipidemia E78.2 ; Essential hypertension I10 and Hypokalemia E87.6 [place] [address] [id number] [address] [place] [phone] Mar, Oral candidiasis B37.0 ; Nathainel roforaminal stenosis of spine M99.89 ; Neck pain M54.2 and Chronic pain due to trauma G89.21 [place] [address] [id number] [address] [place] [phone] Feb, [place] [address] [id number] [address] [place] [id number] Feb, [place] [address] [id number] [address] [place] [phone] Feb, UTI (urinary tract infection ) N39.0 [place] [address] [id number] [address] [place] [phone] Feb, Dysuria R30.0 [place] [address] [facility] [id number] [address] [place] [phone] Feb, Dysuria R30.0 [facility] [place] [address] [id number] [address] [place] [phone] Feb, Neuroforaminal stenosis of s pine M99.89 ; Neck pain M54.2 ; Essential hypertension I10 ; Chronic pain due to trauma G89.21 ; Dysuria R30.0 ; Abnormal MRI, shoulder R93.8 and Acute cystitis without hematuria N30.00 [facility] [place] [address] [id number] [address] [place] [id number] Jan, [facility] [place] [address] [id number] [address] [place] [phone] Jan, [facility] [place] [address] [id number] [address] [place] [phone] Jan, [facility] [place] [address] [id number] [address] [place] [phone] Jan, Abnormal MRI R93.8 [facility] [place] [address] [id number] [address] [place] [phone] 29 Dec, 2015 [facility] [address] [id number] [address] [place] [id number] 15 Dec, 2015 Acute pain of left shoulder M25.512 [facility] [place] [address] [id number] [address] [place] [phone] 09 Dec, 2015 [facility] [place] [address] [id number] [address] [place] [phone] 08 Dec, 2015 [facility] [place] [address] [id number] [address] [place] [phone] 07 Dec, 2015 Acute pain of left shoulder M25.512 [facility] [place] [address] [id number] [address] [place] [phone] Nov, [facility] [place] [address] [id number] [address] [place] [phone] Nov, Neuroforaminal stenosis of s pine M99.89 ; Neck pain M54.2 ; Abnormal mammogram R92.8 ; Essential hypertension I10 and Chronic pain due to trauma G89.21 [facility] [place] [address] [id number] [address] [place] [phone] Nov, [facility] [place] [address] [id number] [address] [place] [phone] Oct, Acute stress disorder F43.0 [facility] [place] [address] [id number] [address] [place] [phone] Oct, [facility] [place] [address] [id number] [address] [place] [phone] Oct, [facility] [place] [address] [id number] [address] [place] [phone] Oct, [facility] [place] [address] [id number] [address] [place] [phone] Sep, [facility] [place] [address] [id number] [address] [place] [phone] August, [facility] [place] [address] [id number] [address] [place] [phone] Jul, Neuroforaminal stenosis of s pine M99.89 ; Neck pain M54.2 ; Abnormal mammogram R92.8 and Essential hypertension I10 [facility] [place] [address] [id number] [address] [place] [phone] Jul, [facility] [place] [address] [id number] [address] [place] [phone] Jul, [facility] [place] [address] [id number] [address] [place] [phone] Jul, Abnormal mammogram R92.8 [facility] [place] [address] [id number] [address] [place] [phone] Jul, [facility] [place] [address] [id number] [address] [place] [id number] Jul, UTI (urinary tract infection ) N39.0 [facility] [place] [address] [id number] [address] [place] [phone] Jul, Dysuria R30.0 [facility] [place] [address] [id number] [address] [place] [phone] Jun, [facility] [place] [address] [facility] [id number] [address] [place] [phone] Jun, [facility] [place] [address] [facility] [id number] [address] [place] [phone] Jun, Hypokalemia E87.6 and Hematu martina R31.9 [place] [address] [facility] [id number] [address] [place] [phone] Jun, Hypokalemia E87.6 [place] [address] [facility] [id number] [address] [place] [phone] Jun, [place] [address] [facility] [id number] [address] [place] [phone] Jun, Hypokalemia E87.6 [place] [address] [facility] [id number] [address] [place] [phone] Jun, Hypokalemia E87.6 [place] [address] [facility] [id number] [address] [place] [phone] 15 Jun, 2015 Neuroforaminal stenosis of s pine M99.89 ; Hypokalemia E87.6 ; Neck pain M54.2 ; Essential hypertension I10 ; Mixed hyperlipidemia E78.2 and Screening breast examination Z12.39 [place] [address] [place] [id number] [address] [place] [id number] Jun, Dysuria R30.0 ; UTI (urinary tract infection) N39.0 and Hematuria R31.9 [place] [address] [facility] [id number] [address] [place] [phone] May, [place] [address] [place] [id number] [address] [place] [phone] May, High risk sexual behavior Z7 2.51 ; Hypokalemia E87.6 ; Neuroforaminal stenosis of spine M99.89 ; Neck pain M54.2 ; Essential hypertension I10 ; Mixed hyperlipidemia E78.2 ; STD exposure Z20.2 and Concern about STD in female without diagnosis Z71.1 [facility] [place] [address] [place] [id number] [address] [place] [phone] 16 May, 2015 Neuroforaminal stenosis of s pine M99.89 ; Neck pain M54.2 ; Hypokalemia E87.6 ; Essential hypertension I10 and Mixed hyperlipidemia E78.2 [facility] [place] [address] [place] [id number] [address] [place] [phone] 11 May, 2015 [facility] [address] [phone] 08 May, 2015 High risk sexual behavior Z7 2.51 ; STD exposure Z20.2 and Concern about STD in female without diagnosis Z71.1 [facility] [place] [address] [id number] 05 May, 2015 [facility] [place] [address] [phone] Apr, Neuroforaminal stenosis of s pine M99.89 ; Mixed hyperlipidemia E78.2 ; Essential hypertension I10 and Hypokalemia E87.6 [place] [address] [phone] Mar, [facility] [place] [address] [phone] Mar, Hypokalemia E87.6 [place] [address] [id number] Mar, Neuroforaminal stenosis of s pine M99.89 ; Mixed hyperlipidemia E78.2 ; Neck pain M54.2 ; Essential hypertension I10 ; Abnormal fasting glucose R73.09 ; Hypokalemia E87.6 and Constipation K59.00 [facility] [place] [address] [place] [id number] [address] [place] [id number] Feb, Neuroforaminal stenosis of s pine M99.89 ; Mixed hyperlipidemia E78.2 ; Neck pain M54.2 ; Essential hypertension I10 ; Abnormal fasting glucose R73.09 ; Hypokalemia E87.6 and Constipation K59.00 [place] [address] [facility] [id number] [address] [place] [phone] Feb, Elevated fasting blood sugar R73.01 [place] [address] [facility] [id number] [address] [place] [phone] Feb, Elevated fasting blood sugar R73.01 [place] [address] [place] [id number] [address] [place] [phone] Feb, Hair loss L65.9 [place] [address] [place] [id number] [place] [phone] Feb, Sinusitis J32.9 ; Essential hypertension I10 and Hair loss L65.9 [place] [address] [place] [id number] [address] [place] [phone] Jan, [place] [address] [place] [id number] [place] [phone] Jan, Essential hypertension I10 ; Neuroforaminal stenosis of spine M99.89 ; Neck pain M54.2 ; Mixed hyperlipidemia E78.2 and Anxiety F41.9 [place] [address] [place] [id number] [place] [phone] Jan, [place] [address] [place] [id number] [place] [phone] Jan, Mixed hyperlipidemia E78.2 ; Essential (primary) hypertension I10 ; Strain of muscle, fascia and tendon at neck level, subsequent encounter S16.1XXD and Tension-type headache, unspecified, not intractable G44.209 [place] [address] [facility] [id number] [address] [place] [phone] Dec, Lumbar back pain 724.2 and N euroforaminal stenosis of spine 724.00 [place] [address] [place] [id number] [address] [place] [phone] Nov, [place] [address] [place] [id number] [place] [phone] Nov, Lumbar back pain 724.2 and N euroforaminal stenosis of spine 724.00 [facility] [place] [address] [id number] [address] [place] [phone] Nov, Edema 782.3 ; Lumbar back pa in 724.2 ; Essential hypertension, benign 401.1 ; Hyperlipemia 272.4 ; Neuroforaminal stenosis of spine 724.00 and Post-concussion headache 339.20 [facility] [place] [address] [id number] [address] [place] [phone] Nov, [facility] [place] [address] [id number] [address] [place] [phone] Nov, [facility] [place] [address] [id number] [address] [place] [phone] Oct, Essential hypertension, sheridan gn 401.1 [facility] [place] [address] [id number] [address] [place] [phone] Oct, Edema 782.3 ; Lumbar back pa in 724.2 ; Essential hypertension, benign 401.1 ; Hyperlipemia 272.4 ; Neuroforaminal stenosis of spine 724.00 and Post-concussion headache 339.20 [facility] [place] [address] [id number] [address] [place] [phone] Oct, [facility] [place] [address] [id number] [address] [place] [phone] Oct, Edema 782.3 [facility] [place] [address] [id number] [address] [place] [phone] Oct, Lumbar back pain 724.2 [facility] [place] [address] [id number] [address] [place] [phone] Oct, Cervicalgia 723.1 ; Lumbar b ack pain 724.2 and High risk medication use V58.69 [facility] [place] [address] [id number] [address] [place] [phone] Sep, [place] [address] [id number] [address] [place] [phone] Sep, Lumbar strain 847.2 [facility] [place] [address] [id number] [address] [place] [phone] August, Edema 782.3 and Eustachian t ube dysfunction 381.81 [facility] [place] [address] [id number] [address] [place] [id number] August, [facility] [place] [address] [id number] [address] [place] [phone] August, Eustachian tube dysfunction 381.81 [facility] [place] [address] [id number] [address] [place] [phone] Jul, Otalgia 388.70 and Otitis me jonathon 382.9 [facility] [place] [address] [id number] [address] [place] [phone] Jul, [facility] [place] [address] [id number] [address] [place] [phone] Jul, [facility] [place] [address] [id number] [address] [place] [phone] Jul, [facility] [place] [address] [id number] [address] [place] [phone] Jul, [facility] [place] [address] [id number] [address] [place] [phone] Jul, [facility] [place] [address] [id number] [address] [place] [phone] Jun, [facility] [place] [address] [id number] [address] [place] [phone] Jun, [facility] [place] [address] [id number] [address] [place] [phone] Jun, [facility] [place] [address] [id number] [address] [place] [phone] May, [facility] [address] [id number] [address] [place] [address], [place] [phone] May, 2014 [facility] [address] [id number] [address] [place] [address], [place] [address] May, 2014 [facility] [address] [id number] [address] [place] [address], [place] [address] May, 2014 [facility] [address] [id number] [address] [place] [address], [place] [address] May, 2014 [facility] [address] [id number] [address] [place] [address], [place] [address] May, 2014 [facility] [address] [id number] [address] [place] [address], [place] [address] May, 2014 [facility] [address] [id number] [address] [place] [address], [place] [address] May, 2014 [facility] [address] [id number] [address] [place] [address], [place] [address] May, [facility] [address] [id number] [address] [place] [address], [place] [address] May, [facility] [address] [id number] [address] [place] [address], [place] [address] Apr, [facility] [address] [id number] [address] [place] [address], [place] [address] Apr, [facility] [address] [id number] [address] [place] [address], [place] [address] Apr, [facility] [address] [id number] [address] [place] [address], [place] [address] Apr, [facility] [address] [id number] [address] [place] [address], [place] [address] Apr, [facility] [address] [id number] [address] [place] [address], [place] [address] Apr, [facility] [address] [id number] [address] [place] [address], [place] [address] Apr, [facility] [address] [id number] [address] [place] [address], [place] [address] Apr, [facility] [address] [id number] [address] [place] [address], [place] [address] Apr, [facility] [address] [id number] [address] [place] [address], [place] [address] Apr, [facility] [address] [id number] [address] [place] [address], [place] [address] Apr, [facility] [address] [id number] [address] [place] [address], [place] [address] Apr, [facility] [address] [id number] [address] [place] [address], [place] [address] Apr, [facility] [address] [id number] [address] [place] [address], [place] [address] Apr, [facility] [address] [id number] [address] [place] [address], [place] [address] Apr, [facility] [address] [id number] [address] [place] [address], [place] [address] Mar, [facility] [address] [id number] [address] [place] [address], [place] [address] Mar, [facility] [address] [id number] [address] [place] [address], [place] [address] Mar, [facility] [address] [id number] [address] [place] [address], [place] [address] Mar, [facility] [address] [id number] [address] [place] [address], [place] [address] Feb, [facility] [address] [id number] [address] [place] [address], [place] [address] Feb, [facility] [address] [id number] [address] [place] [address], [place] [address] Feb, [facility] [address] [id number] [address] [place] [address], [place] [address] 05 Feb, 2014 [facility] [address] [id number] [address] [place] [address], [place] [address] Jan, [facility] [address] [id number] [address] [place] [address], [place] [address] Jan, [facility] [address] [id number] [address] [place] [address], [place] [address] Jan, [facility] [address] [id number] [address] [place] [address], [place] [address] Jan, [facility] [address] [id number] [address] [place] [address], [place] [address] Jan, [facility] [address] [id number] [address] [place] [address], [place] [address] Jan, [facility] [address] [id number] [address] [place] [address], [place] [address] Jan, [facility] [address] [id number] [address] [place] [address], [place] [address] Jan, [facility] [address] [id number] [address] [place] [address], [place] [address] Dec, [facility] [address] [id number] [address] [place] [address], [place] [address] 29 Dec, 2013 [facility] [address] [id number] [address] [place] [address], [place] [address] Dec, [facility] [address] [id number] [address] [place] [address], [place] [address] Dec, [facility] [address] [id number] [address] [place] [address], [place] [address] Oct, [facility] [address] [id number] [address] [place] [address], [place] [address] 14 Oct, 2013 [facility] [address] [id number] [address] [place] [address], [place] [address] Oct, [facility] [address] [id number] [facility] [address] Oct, [facility] [address] [id number] [address] [place] [address], [place] [address] Oct, [facility] [address] [id number] [address] [place] [address], [place] [address] Oct, 2013 [facility] [address] [id number] [address] [place] [address], [place] [address] Oct, [facility] [address] [id number] [address] [place] [address], [place] [address] Oct, [facility] [address] [id number] [address] [place] [address], [place] [address] Sep, [facility] [address] [id number] [address] [place] [address], [place] [address] Sep, [facility] [address] [id number] [address] [place] [address], [place] [address] Sep, [facility] [address] [id number] [address] [place] [address], [place] [address] Sep, [facility] [address] [id number] [address] [place] [address], [place] [address] Sep, [facility] [address] [id number] [address] [place] [address], [place] [address] Sep, [facility] [address] [id number] [address] [place] [address], [place] [address] Sep, [facility] [address] [id number] [address] [place] [address], [place] [address] Sep, [facility] [address] [id number] [address] [place] [address], [place] [address] Sep, [facility] [address] [id number] [address] [place] [address], [place] [address] Sep, [facility] [address] [id number] [address] [place] [address], [place] [address] August, [facility] [address] [id number] [address] [place] [address], [place] [address] August, [facility] [address] [id number] [address] [place] [address], [place] [address] August, [facility] [address] [id number] [address] [place] [address], [place] [address] August, [facility] [address] [id number] [address] [place] [address], [place] [address] August, [facility] [address] [id number] [address] [place] [address], [place] [address] August, [facility] [address] [id number] [address] [place] [address], [place] [address] August, [facility] [address] [id number] [address] [place] [address], [place] [address] August, [facility] [address] [id number] [address] [place] [address], [place] [address] August, [facility] [address] [id number] [address] [place] [address], [place] [address] August, [facility] [address] [id number] [address] [place] [address], [place] [address] August, [facility] [address] [id number] [address] [place] [address], [place] [address] August, [facility] [address] [id number] [address] [place] [address], [place] [address] Jul, [facility] [address] [id number] [address] [place] [address], [place] [address] Jul, [facility] [address] [id number] [address] [place] [address], [place] [address] Jul, [facility] [address] [id number] [address] [place] [address], [place] [address] Jul, [facility] [address] [id number] [address] [place] [address], [place] [address] Jul, [facility] [address] [id number] [address] [place] [address], [place] [address] Jul, [facility] [address] [id number] [address] [place] [address], [place] [address] Jun, [facility] [address] [id number] [address] [place] [address], [place] [address] Jun, [facility] [address] [id number] [address] [place] [address], [place] [address] May, [facility] [address] [id number] [address] [place] [address], [place] [address] May, [facility] [address] [id number] [address] [place] [address], [place] [address] Apr, [facility] [address] [id number] [address] [place] [address], [place] [address] Apr, [facility] [address] [id number] [address] [place] [address], [place] [address] Apr, [facility] [address] [id number] [address] [place] [address], [place] [address] Apr, [facility] [address] [id number] [address] [place] [address], [place] [address] Apr, [facility] [address] [id number] [address] [place] [address], [place] [address] Apr, [facility] [address] [id number] [address] [place] [address], [place] [address] Apr, [facility] [address] [id number] [address] [place] [address], [place] [address] Apr, [facility] [address] [id number] [address] [place] [address], [place] [address] Apr, [facility] [address] [id number] [address] [place] [address], [place] [address] Apr, [facility] [address] [id number] [address] [place] [address], [place] [address] Apr, [facility] [address] [id number] [address] [place] [address], [place] [address] Apr, [facility] [address] [id number] [address] [place] [address], [place] [address] Apr, [facility] [address] [id number] [address] [place] [address], [place] [address] Mar, [facility] [address] [id number] [address] [place] [address], [place] [address] Mar, [facility] [address] [id number] [address] [place] [address], [place] [address] Mar, [facility] [address] [id number] [address] [place] [address], [place] [address] Mar, [facility] [address] [id number] [address] [place] [address], [place] [address] Feb, [facility] [address] [id number] [address] [place] [address], [place] [address] Feb, [facility] [address] [id number] [address] [place] [address], [place] [address] Feb, [facility] [address] [id number] [address] [place] [address] Feb, [facility] [address] [id number] [address] [place] [address] Jan, [facility] [address] [id number] [address] [place] [address], [place] [address] Jan, [facility] [address] [id number] [address] [place] [address], [place] [address] Jan, [facility] [address] [id number] [address] [place] [address], [place] [address] Jan, [facility] [address] [id number] [address] [place] [address], [place] [address] Jan, [facility] [address] [id number] [address] [place] [address], [place] [address] Jan, [facility] [address] [id number] [address] [place] [address], [place] [address] Jan, [facility] [address] [id number] [address] [place] [address], [place] [address] Jan, [facility] [address] [id number] [address] [place] [address], [place] [address] Jan, [facility] [address] [id number] [address] [place] [address], [place] [address] 26 Dec, 2012 [facility] [address] [id number] [address] [place] [address], [place] [address] 16 Dec, 2012 [facility] [address] [id number] [address] [place] [address], [place] [address] 16 Dec, 2012 [facility] [address] [id number] [address] [place] [address], [place] [address] 13 Dec, 2012 [facility] [address] [id number] [address] [place] [address], [place] [address] Nov, [facility] [address] [id number] [address] [place] [address], [place] [address] 17 Nov, 2012 [facility] [address] [id number] [address] [place] [address], [place] [address] 14 Nov, 2012 [facility] [address] [id number] [address] [place] [address], [place] [address] Nov, [facility] [address] [id number] [address] [place] [address], [place] [address] Oct, [facility] [address] [id number] [address] [place] [address], [place] [address] Sep, [facility] [address] [id number] [address] [place] [address], [place] [address] August, [facility] [address] [id number] [address] [place] [address], [place] [address] August, [facility] [address] [id number] [address] [place] [address], [place] [address] August, [facility] [address] [id number] [address] [place] [address], [place] [address] August, [facility] [address] [id number] [address] [place] [address], [place] [address] August, [facility] [address] [id number] [address] [place] [address], [place] [address] August, [facility] [address] [id number] [address] [place] [address], [place] [address] August, [facility] [address] [id number] [address] [place] [address], [place] [address] August, [facility] [address] [id number] [address] [place] [address], [place] [address] August, [facility] [address] [id number] [address] [place] [address], [place] [address] August, [facility] [address] [id number] [address] [place] [address], [place] [address] August, [facility] [address] [id number] [address] [place] [address], [place] [address] August, [facility] [address] [id number] [address] [place] [address], [place] [address] Jul, [facility] [address] [id number] [address] [place] [address], [place] [address] Jul, [facility] [address] [id number] [address] [place] [address], [place] [address] Jul, [facility] [address] [id number] [address] [place] [address], [place] [address] Jul, [facility] [address] [id number] [address] [place] [address], [place] [address] Jul, [facility] [address] [id number] [address] [place] [address], [place] [address] Jul, [facility] [address] [id number] [address] [place] [address], [place] [address] Jul, [facility] [address] [id number] [address] [place] [address], [place] [address] Jul, [facility] [address] [id number] [address] [place] [address], [place] [address] Jul, [facility] [address] [id number] [address] [place] [address], [place] [address] Jul, [facility] [address] [id number] [address] [place] [address], [place] [address] Jul, [facility] [address] [id number] [address] [place] [address], [place] [address] Jun, [facility] [address] [id number] [address] [place] [address], [place] [address] Jun, [facility] [address] [id number] [address] [place] [address], [place] [address] Jun, [facility] [address] [id number] [address] [place] [address], [place] [address] Jun, [facility] [address] [id number] [address] [place] [address], [place] [address] May, [facility] [address] [id number] [address] [place] [address], [place] [address] 14 May, 2012 [facility] [address] [id number] [address] [place] [address], [place] [address] 05 May, 2012 [facility] [address] [id number] [address] [place] [address], [place] [address] May, [facility] [address] [id number] [address] [place] [address], [place] [address] May, [facility] [address] [id number] [address] [place] [address], [place] [address] May, [facility] [address] [id number] [address] [place] [address], [place] [address] Apr, [facility] [address] [id number] [address] [place] [address], [place] [address] Apr, [facility] [address] [id number] [address] [place] [address], [place] [address] Apr, [facility] [address] [id number] [address] [place] [address], [place] [address] Apr, [facility] [address] [id number] [address] [place] [address], [place] [address] Mar, [facility] [address] [id number] [address] [place] [address], [place] [address] Mar, [facility] [address] [id number] [address] [place] [address], [place] [address] Mar, [facility] [address] [id number] [address] [place] [address], [place] [address] Mar, [facility] [address] [id number] [address] [place] [address], [place] [address] Mar, [facility] [address] [id number] [address] [place] [address], [place] [address] Mar, [facility] [address] [id number] [address] [place] [address], [place] [address] Mar, [facility] [address] [id number] [address] [place] [address], [place] [address] Feb, [facility] [address] [id number] [address] [place] [address], [place] [address] Feb, [facility] [address] [id number] [address] [place] [address], [place] [address] Feb, [facility] [address] [id number] [address] [address] Feb, [facility] [address] [id number] [address] [place] [address], [place] [address] Jan, [facility] [address] [id number] [address] [place] [address], [place] [address] Jan, [facility] [address] [id number] [address] [place] [address], [place] [address] Jan, [facility] [address] [id number] [address] [place] [address], [place] [address] Jan, [facility] [address] [id number] [address] [place] [address], [place] [address] Jan, [facility] [address] [id number] [address] [place] [address], [place] [address] Jan, [facility] [address] [id number] [address] [place] [address], [place] [address] Dec, [facility] [address] [id number] [address] [place] [address], [place] [address] Dec, [facility] [address] [id number] [address] [place] [address], [place] [address] Nov, [facility] [address] [id number] [address] [place] [address], [place] [address] Sep, [facility] [address] [id number] [address] [place] [address], [place] [address] August, [facility] [address] [id number] [address] [place] [address] August, [facility] [address] [id number] [address] [place] [address], [place] [address] August, [facility] [address] [id number] [address] [place] [address], [place] [address] August, [facility] [address] [id number] [address] [place] [address], [place] [address] August, [facility] [address] [id number] [address] [place] [address], [place] [address] Jun, [facility] [address] [id number] [address] [place] [address], [place] [address] Jun, [facility] [address] [id number] [address] [place] [address], [place] [address] Apr, [facility] [address] [id number] [address] [place] [address], [place] [address] Apr, [facility] [address] [id number] [address] [place] [address], [place] [address] Mar, [facility] [address] [id number] [address] [place] [address], [place] [address] Feb, [facility] [address] [id number] [address] [place] [address], [place] [address] Feb, [facility] [address] [id number] [address] [place] [address], [place] [address] Feb, [facility] [address] [id number] [address] [place] [address], [place] [address] 17 Jan, 2011 [facility] [address] [id number] [address] [place] [address], [place] [address] 15 Jan, 2011 [facility] [address] [id number] [address] [place] [address], [place] [address] 15 Jan, 2011 [facility] [address] [id number] [address] [place] [address], [place] [address] 14 Jan, 2011 [facility] [address] [id number] [address] [place] [address], [place] [address] 15 May, 2010 [facility] [address] [id number] [address] [place] [address], [place] [address] 04 Mar, 2010 [facility] [address] [id number] [address] [place] [address], [place] [address] Oct, [facility] [address] [id number] [address] [place] [address], [place] [address] Sep, [facility] [address] [facility] [id number] [address] [place] [address] Mar, [facility] [address] [facility] [id number] [address] [place] [address] Jan, [facility] [address] [facility] [id number] [address] [place] [address] Jan, [facility] [address] [facility] [id number] [address] [place] [address] May, IMMUNIZATIONS No Known Immunizations SOCIAL HISTORY [...] squamous atypia (no definite dyplasia). Performed at [facility] Dr. Joy. Medical History Acute [...]
--- OUTSIDE RECORDS SUMMARY | 2019-11-23 06:12 | XMS REPORT ---
Author Author Liana Coe Doctor Organization [facility] Address Unknown Phone Unavailable Care Team Providers Care Machine Feeder Raw Stock Name Role Phone Migration, Doctor Unavailable Unavailable PROBLEMS Type Condition ICD9-CM Code QXO68-IP Code Onset Dates Condition S tatus SNOMED Code Problem Anxiety F41.9 Active 63299601 Problem Neck pain M54.2 Active 75954974 Problem Neuroforaminal stenosis of spine M99.89 Active 785723437692 Problem Hematuria, unspecified type R31.9 Ac tive 72545217 Problem Seasonal allergies J30.2 Active 4 89309632 Problem Abnormal glucose R73.09 Active 102 301409 Problem Rhinosinusitis J32.9 Active 35399 4004 Problem Abnormal renal ultrasound R93.429 Acti ve [id number] Problem Essential hypertension I10 Active 32358295 Problem Mixed hyperlipidemia E78.2 Active 12865481 Problem Hypokalemia E87.6 Active 41381562 Problem Chronic pain due to trauma G89.21 Act juanis [id number] ALLERGIES No Information ENCOUNTERS Encounter Location Date Diagnosis [place] [address] [facility] [id number] [address] [place] [phone] Jul, Neuroforaminal stenosis of s pine M99.89 [place] [address] [facility] [id number] [address] [place] [phone] Jul, Allergic conjunctivitis of b oth eyes H10.13 [place] [address] [facility] [id number] [address] [place] [phone] Jun, Hypokalemia E87.6 [place] [address] [facility] [id number] [address] [place] [phone] Jun, [place] [address] [place] [id number] [address] [place] [phone] Jun, Neuroforaminal stenosis of s pine M99.89 [place] [address] [facility] [id number] [address] [place] [phone] 19 Jun, 2019 Lateral epicondylitis, left elbow M77.12 and Medial epicondylitis, left elbow M77.02 [place] [address] [facility] [id number] [address] [place] [address] 16 Jun, 2019 Foraminal stenosis of lumbar region M48.061 ; Segmental dysfunction of thoracic region M99.02 ; Segmental dysfunction of lumbar region M99.03 and Segmental dysfunction of sacral region M99.04 [place] [address] [id number] [address] [place] [phone] 28 May, 2019 Left elbow pain M25.522 [place] [address] [facility] [id number] [address] [place] [phone] 27 May, 2019 [place] [address] [place] [id number] [address] [place] [phone] May, Left elbow pain M25.522 [place] [address] [place] [id number] [address] [place] [phone] May, Neuroforaminal stenosis of s pine M99.89 [place] [address] [facility] [id number] [address] [place] [phone] 26 May, 2019 Rhinosinusitis J32.9 ; Left elbow pain M25.522 and Neck pain M54.2 [place] [address] [place] [id number] [address] [place] [phone] 14 May, 2019 Lateral epicondylitis of lef t elbow M77.12 [place] [address] [facility] [id number] [address] [place] [phone] Apr, Neuroforaminal stenosis of s pine M99.89 [place] [address] [facility] [id number] [address] [place] [phone] 13 Apr, 2019 Essential hypertension I10 a nd Mixed hyperlipidemia E78.2 [place] [address] [place] [id number] [address] [place] [phone] Mar, Neuroforaminal stenosis of s pine M99.89 [facility] [address] [id number] [address] [place] [phone] Mar, Epicondylitis, lateral, left M77.12 [facility] [address] [id number] [address] [place] [phone] Mar, [facility] [address] [facility] [id number] [address] [place] [phone] Mar, Neuroforaminal stenosis of s pine M99.89 [facility] [address] [id number] [address] [place] [phone] Feb, Neuroforaminal stenosis of s pine M99.89 ; Essential hypertension I10 ; Mixed hyperlipidemia E78.2 ; Encounter for immunization Z23 and Seasonal allergies J30.2 [facility] [address] [id number] [address] [place] [phone] Jan, Neuroforaminal stenosis of s pine M99.89 [facility] [address] [id number] [address] [place] [phone] Dec, Neuroforaminal stenosis of s pine M99.89 [facility] [address] [id number] [address] [place] [phone] Dec, Neuroforaminal stenosis of s pine M99.89 [facility] [address] [facility] [id number] [address] [place] [phone] Nov, [facility] [address] [id number] [address] [place] [phone] Nov, Neuroforaminal stenosis of s pine M99.89 [facility] [address] [facility] [id number] [address] [place] [phone] Nov, Acute non-recurrent maxillar y sinusitis J01.00 [facility] [address] [id number] [address] [place] [phone] Oct, Hypokalemia E87.6 [facility] [address] [id number] [address] [place] [phone] Oct, Wasp sting, undetermined int ent, initial encounter T63.464A and Cellulitis of left lower extremity L03.116 [facility] [address] [facility] [id number] [address] [place] [phone] Oct, Neuroforaminal stenosis of s pine M99.89 [facility] [address] [id number] [address] [place] [phone] Sep, [place] [address] [facility] [id number] [address] [place] [phone] Sep, [place] [address] [facility] [id number] [address] [place] [phone] 18 Sep, 2018 Routine screening for STI (s exually transmitted infection) Z11.3 [place] [address] [place] [id number] [address] [place] [phone] 14 Sep, 2018 Routine screening for STI (s exually transmitted infection) Z11.3 ; Well woman exam with routine gynecological exam Z01.419 and Breast cancer screening Z12.39 [place] [address] [facility] [id number] [address] [place] [phone] Sep, Neuroforaminal stenosis of s pine M99.89 [place] [address] [facility] [id number] [address] [place] [phone] August, Neuroforaminal stenosis of s pine M99.89 [place] [address] [facility] [id number] [address] [place] [phone] August, Neuroforaminal stenosis of s pine M99.89 ; Chronic pain due to trauma G89.21 and Mixed hyperlipidemia E78.2 [place] [address] [facility] [id number] [address] [place] [phone] 16 Jul, 2018 Viral upper respiratory illn ess J06.9 and Acute non-recurrent frontal sinusitis J01.10 [place] [address] [facility] [id number] [address] [place] [phone] Jul, Congestion of nasal sinus R0 9.81 [facility] [address] [id number] [address] [place] [phone] Jul, Neuroforaminal stenosis of s jose M99.89 and Essential hypertension I10 [facility] [address] [id number] [address] [place] [phone] May, Neuroforaminal stenosis of s jose M99.89 [facility] [address] [id number] [address] [place] [phone] May, [facility] [address] [id number] [address] [place] [phone] May, Congestion of nasal sinus R0 9.81 [facility] [address] [id number] [address] [place] [phone] May, [facility] [address] [id number] [address] [place] [phone] Apr, Neuroforaminal stenosis of s jose M99.89 [facility] [address] [id number] [address] [place] [phone] Apr, Neuroforaminal stenosis of s jose M99.89 and Chronic pain due to trauma G89.21 [facility] [address] [id number] [address] [place] [phone] Mar, UTI (urinary tract infection ) N39.0 [facility] [address] [id number] [address] [place] [phone] Mar, Vertigo R42 [facility] [address] [id number] [address] [place] [phone] Mar, Neuroforaminal stenosis of s jose M99.89 [facility] [address] [id number] [address] [place] [phone] Feb, Extensor tendon disruption M 67.89 [facility] [address] [id number] [address] [place] [phone] Feb, Neuroforaminal stenosis of s pine M99.89 and High risk medication use Z79.899 [facility] [address] [id number] [address] [place] [phone] Jan, Hypokalemia E87.6 [facility] [address] [id number] [address] [place] [phone] Jan, Flank pain R10.9 and Acute r ight-sided low back pain without sciatica M54.5 [place] [address] [id number] [address] [place] [phone] Jan, Hypokalemia E87.6 [place] [address] [facility] [id number] [address] [place] [phone] Jan, [place] [address] [facility] [id number] [address] [place] [phone] Jan, URI, acute J06.9 [place] [address] [id number] [address] [place] [phone] Jan, Neuroforaminal stenosis of s jose M99.89 [place] [address] [facility] [id number] [address] [place] [phone] 13 Dec, 2017 Lateral epicondylitis, right elbow M77.11 [place] [address] [id number] [address] [place] [phone] 11 Dec, 2017 Allergic rhinitis due to monica rosalina, unspecified seasonality J30.1 and Allergic conjunctivitis of both eyes H10.13 [place] [id number] [id number] [address] [place] [phone] 10 Dec, 2017 Neuroforaminal stenosis of s pine M99.89 [facility] [address] [facility] [id number] [address] [place] [phone] 06 Dec, 2017 Mixed hyperlipidemia E78.2 [place] [address] [facility] [id number] [address] [place] [phone] Dec, Abnormal glucose R73.09 ; Ab normal renal ultrasound R93.429 ; Dysuria R30.0 ; Cystitis without hematuria N30.90 ; Hypokalemia E87.6 ; Mixed hyperlipidemia E78.2 and Hematuria, unspecified type R31.9 [place] [address] [facility] [id number] [address] [place] [phone] Nov, Hypokalemia E87.6 ; Mixed hy perlipidemia E78.2 and Hematuria, unspecified type R31.9 [place] [address] [facility] [id number] [address] [place] [phone] Nov, [place] [address] [facility] [id number] [address] [place] [phone] Nov, Hypokalemia E87.6 [place] [address] [facility] [id number] [address] [place] [phone] Nov, [place] [address] [place] [id number] [address] [place] [phone] Nov, Abnormal renal ultrasound R9 3.429 [place] [address] [id number] [address] [place] [phone] Nov, Abnormal renal ultrasound R9 3.429 [place] [address] [facility] [id number] [address] [place] [phone] Nov, Hematuria, unspecified type R31.9 and Neuroforaminal stenosis of spine M99.89 [place] [address] [facility] [id number] [address] [place] [phone] Nov, Dysuria R30.0 [place] [address] [facility] [id number] [address] [place] [phone] Oct, Lateral epicondylitis, right elbow M77.11 [place] [address] [facility] [id number] [address] [place] [address] Oct, Neuroforaminal stenosis of s pine M99.89 ; Visit for TB skin test Z11.1 and Essential hypertension I10 [place] [address] [facility] [id number] [address] [place] [phone] 16 Oct, 2017 [place] [address] [facility] [id number] [address] [place] [phone] 12 Oct, 2017 Neuroforaminal stenosis of s pine M99.89 [place] [address] [facility] [id number] [address] [place] [phone] 10 Oct, 2017 Visit for TB skin test Z11.1 [place] [address] [facility] [id number] [address] [place] [phone] 05 Oct, 2017 Cystitis without hematuria N 30.90 [place] [address] [facility] [id number] [address] [place] [phone] 28 Sep, 2017 Screening breast examination Z12.39 [place] [address] [place] [id number] [address] [place] [phone] 26 Sep, 2017 Dysuria R30.0 and Cystitis w ithout hematuria N30.90 [place] [address] [facility] [id number] [address] [place] [phone] 14 Sep, 2017 Essential hypertension I10 a nd Neuroforaminal stenosis of spine M99.89 [place] [address] [facility] [id number] [address] [place] [phone] 04 Sep, 2017 Abnormal glucose R73.09 [place] [address] [facility] [id number] [address] [place] [phone] August, Lateral epicondylitis, right elbow M77.11 [place] [address] [facility] [id number] [address] [place] [phone] August, Screen for STD (sexually tra nsmitted disease) Z11.3 [place] [address] [facility] [id number] [address] [place] [address] August, Neuroforaminal stenosis of s pine M99.89 ; Mixed hyperlipidemia E78.2 ; Elevated fasting glucose R73.01 ; Screening mammogram, encounter for Z12.31 and Encounter for well woman exam without gynecological exam Z00.00 [facility] [address] [id number] [address] [place] [phone] August, Neuroforaminal stenosis of s jose M99.89 [facility] [address] [id number] [address] [place] [phone] August, Essential hypertension I10 ; Hypokalemia E87.6 and Mixed hyperlipidemia E78.2 [facility] [address] [id number] [address] [place] [phone] Jul, [facility] [address] [id number] [address] [place] [address] Jul, Neuroforaminal stenosis of s jose M99.89 [place] [address] [facility] [id number] [address] [place] [phone] Jul, Lateral epicondylitis, right elbow M77.11 [place] [address] [id number] [address] [place] [phone] Jul, [facility] [address] [id number] [address] [place] [phone] Jun, High ankle sprain of right l ower extremity, initial encounter S93.431A [facility] [address] [id number] [address] [place] [address] Jun, Essential hypertension I10 [facility] [address] [id number] [address] [place] [phone] Jun, [facility] [address] [id number] [address] [place] [phone] Jun, [facility] [address] [id number] [address] [place] [phone] Jun, Neuroforaminal stenosis of s jose M99.89 [facility] [address] [id number] [address] [place] [address] Jun, Pain of right upper extremit y M79.601 and Essential hypertension I10 [facility] [id number] [place] [phone] Jun, [place] [address] [phone] Jun, Dysuria R30.0 ; Acute cystit is with hematuria N30.01 and Screen for STD (sexually transmitted disease) Z11.3 [place] [address] [address] May, Chronic pain due to trauma G 89.21 [place] [address] [place] [id number] [place] [address] May, Essential hypertension I10 [place] [address] [address] May, Neuroforaminal stenosis of s pine M99.89 [place] [address] [address] Apr, Allergic reaction, initial e ncounter T78.40XA [place] [address] [address] Apr, Low back pain, unspecified b ack pain laterality, unspecified chronicity, with sciatica presence unspecified M54.5 ; Acute cystitis with hematuria N30.01 ; Neuroforaminal stenosis of spine M99.89 ; Bilateral acute serous otitis media, recurrence not specified H65.03 ; Mixed hyperlipidemia E78.2 ; Essential hypertension I10 ; Immunization counseling Z71.89 and Encounter for immunization Z23 [place] [address] [place] [id number] [address] [place] [address] Apr, Neck pain M54.2 [place] [address] [address] Mar, Neuroforaminal stenosis of s pine M99.89 [place] [address] [address] Mar, Pharyngitis due to other org anism J02.8 [facility] [address] [id number] [address] [place] [address] Feb, Neuroforaminal stenosis of s pine M99.89 [facility] [address] [id number] [address] [place] [phone] 08 Feb, 2017 UTI (urinary tract infection ) N39.0 [facility] [address] [id number] [address] [place] [phone] 07 Feb, 2017 Recent urinary tract infecti on Z87.440 ; Neuroforaminal stenosis of spine M99.89 ; Neck pain M54.2 ; Chronic pain due to trauma G89.21 and Recurrent UTI N39.0 [facility] [address] [id number] [address] [place] [phone] Feb, [facility] [address] [id number] [address] [place] [address] Jan, Neuroforaminal stenosis of s pine M99.89 [facility] [address] [id number] [address] [place] [address] Dec, Neuroforaminal stenosis of s pine M99.89 [facility] [address] [id number] [address] [place] [id number] 18 Dec, 2016 Acute seasonal allergic rhin itis due to pollen J30.1 [facility] [address] [id number] [address] [place] [phone] Dec, [facility] [address] [id number] [address] [place] [phone] 08 Dec, 2016 Acute seasonal allergic rhin itis, unspecified trigger J30.2 ; Allergic conjunctivitis of both eyes H10.13 and Dysfunction of both eustachian tubes H69.83 [facility] [address] [id number] [address] [place] [phone] 07 Dec, 2016 [facility] [address] [id number] [address] [place] [phone] 06 Dec, 2016 Nevus D22.9 [facility] [address] [id number] [address] [place] [phone] Nov, Chronic pain due to trauma G 89.21 and Neuroforaminal stenosis of spine M99.89 [facility] [address] [id number] [address] [place] [phone] Nov, Neuroforaminal stenosis of s pine M99.89 ; Essential hypertension I10 ; Mixed hyperlipidemia E78.2 ; Hypokalemia E87.6 ; Neck pain M54.2 and Nevus D22.9 [facility] [address] [id number] [address] [place] [address] Oct, Neuroforaminal stenosis of s pine M99.89 [facility] [address] [id number] [address] [place] [address] Sep, Neuroforaminal stenosis of s pine M99.89 [facility] [address] [id number] [address] [place] [phone] Sep, [facility] [address] [id number] [address] [place] [phone] August, [facility] [address] [id number] [address] [place] [phone] August, Neck pain M54.2 and Neurofor aminal stenosis of spine M99.89 [facility] [address] [id number] [address] [place] [phone] August, Routine gynecological examin ation Z01.419 and Screening breast examination Z12.39 [facility] [address] [id number] [address] [place] [phone] Jul, [facility] [address] [id number] [address] [place] [address] Jul, [facility] [address] [id number] [address] [place] [phone] Jul, Neuroforaminal stenosis of s pine M99.89 [facility] [address] [id number] [address] [place] [phone] Jul, [facility] [address] [id number] [address] [place] [phone] Jul, Neuroforaminal stenosis of l umbar 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 [facility] [address] [id number] [address] [place] [phone] Jul, [facility] [address] [id number] [address] [place] [phone] Jul, [facility] [address] [id number] [address] [place] [id number] Jun, Neuroforaminal stenosis of s jose M99.89 [facility] [address] [id number] [address] [place] [phone] Jun, Uterine leiomyoma, unspecifi ed location D25.9 and Allergic reaction caused by a drug, initial encounter T78.40XA [facility] [address] [id number] [address] [place] [phone] Jun, [facility] [address] [id number] [address] [place] [phone] May, UTI symptoms R39.9 and Pain of right sacroiliac joint M53.3 [facility] [address] [id number] [address] [place] [id number] May, Neuroforaminal stenosis of s ojse M99.89 [facility] [address] [id number] [address] [place] [id number] May, [facility] [address] [id number] [address] [place] [phone] May, Acute mucoid otitis media of left ear H65.112 and Acute non- recurrent maxillary sinusitis J01.00 [facility] [address] [id number] [address] [place] [phone] May, Acute bacterial conjunctivit is of both eyes H10.33 ; Left arm pain M79.602 and Hypokalemia E87.6 [facility] [address] [id number] [address] [place] [id number] Apr, [facility] [address] [facility] [id number] [address] [place] [phone] Apr, Neuroforaminal stenosis of s pine M99.89 ; Neck pain M54.2 ; Chronic pain due to trauma G89.21 ; Mixed hyperlipidemia E78.2 ; Essential hypertension I10 and Hypokalemia E87.6 [place] [id number] [id number] [address] [place] [id number] Mar, Oral candidiasis B37.0 ; Nathaniel roforaminal stenosis of spine M99.89 ; Neck pain M54.2 and Chronic pain due to trauma G89.21 [place] [address] [facility] [id number] [address] [place] [id number] Feb, [place] [facility] [address] [id number] [address] [place] [phone] Feb, [facility] [address] [id number] [address] [place] [phone] Feb, UTI (urinary tract infection ) N39.0 [place] [id number] N [facility] [id number] [address] [place] [id number] 09 Feb, 2016 Dysuria R30.0 [place] [address] [id number] [address] [place] [id number] 08 Feb, 2016 Dysuria R30.0 [place] [id number] N [facility] [id number] [address] [place] [phone] 02 Feb, 2016 Neuroforaminal stenosis of s pine M99.89 ; Neck pain M54.2 ; Essential hypertension I10 ; Chronic pain due to trauma G89.21 ; Dysuria R30.0 ; Abnormal MRI, shoulder R93.8 and Acute cystitis without hematuria N30.00 [place] [id number] [id number] [address] [place] [id number] Jan, [facility] [address] [id number] [address] [place] [phone] Jan, [facility] [address] [id number] [address] [place] [phone] Jan, [facility] [address] [id number] [address] [place] [phone] Jan, Abnormal MRI R93.8 [facility] [address] [id number] [address] [place] [phone] 29 Dec, 2015 [facility] [address] [id number] [address] [place] [phone] 15 Dec, 2015 Acute pain of left shoulder M25.512 [facility] [address] [id number] [address] [place] [id number] 09 Dec, 2015 [facility] [address] [id number] [address] [place] [id number] 08 Dec, 2015 [facility] [address] [id number] [address] [place] [id number] 07 Dec, 2015 Acute pain of left shoulder M25.512 [facility] [address] [id number] [address] [place] [id number] 23 Nov, 2015 [facility] [address] [id number] [address] [place] [id number] 16 Nov, 2015 Neuroforaminal stenosis of s pine M99.89 ; Neck pain M54.2 ; Abnormal mammogram R92.8 ; Essential hypertension I10 and Chronic pain due to trauma G89.21 [facility] [address] [id number] [address] [place] [phone] Nov, [facility] [address] [id number] [address] [place] [id number] Oct, Acute stress disorder F43.0 [facility] [address] [id number] [address] [place] [phone] Oct, [facility] [address] [id number] [address] [place] [phone] Oct, [facility] [address] [id number] [address] [place] [phone] Oct, [facility] [address] [id number] [address] [place] [phone] Sep, [facility] [address] [id number] [address] [place] [address] August, [facility] [address] [id number] [address] [place] [phone] Jul, Neuroforaminal stenosis of s pine M99.89 ; Neck pain M54.2 ; Abnormal mammogram R92.8 and Essential hypertension I10 [facility] [address] [id number] [address] [place] [phone] Jul, [facility] [address] [id number] [address] [place] [phone] Jul, [facility] [address] [id number] [address] [place] [phone] Jul, Abnormal mammogram R92.8 [facility] [address] [id number] [address] [place] [id number] Jul, [facility] [address] [id number] [address] [place] [phone] Jul, UTI (urinary tract infection ) N39.0 [facility] [address] [id number] [address] [place] [phone] Jul, Dysuria R30.0 [facility] [address] [id number] [address] [place] [phone] Jun, [facility] [address] [id number] [address] [place] [phone] Jun, [facility] [address] [id number] [address] [place] [address] Jun, Hypokalemia E87.6 and Hematu martina R31.9 [place] [address] [address] Jun, Hypokalemia E87.6 [place] [address] [facility] [id number] [address] [place] [address] Jun, [place] [address] [address] Jun, Hypokalemia E87.6 [place] [address] [place] [id number] [place] [address] Jun, Hypokalemia E87.6 [place] [address] [id number] Jun, Neuroforaminal stenosis of s pine M99.89 ; Hypokalemia E87.6 ; Neck pain M54.2 ; Essential hypertension I10 ; Mixed hyperlipidemia E78.2 and Screening breast examination Z12.39 [place] [address] [address] Jun, Dysuria R30.0 ; UTI (urinary tract infection) N39.0 and Hematuria R31.9 [place] [address] [address] May, [place] [address] [address] May, High risk sexual behavior Z7 2.51 ; Hypokalemia E87.6 ; Neuroforaminal stenosis of spine M99.89 ; Neck pain M54.2 ; Essential hypertension I10 ; Mixed hyperlipidemia E78.2 ; STD exposure Z20.2 and Concern about STD in female without diagnosis Z71.1 [place] [address] [address] 16 May, 2015 Neuroforaminal stenosis of s pine M99.89 ; Neck pain M54.2 ; Hypokalemia E87.6 ; Essential hypertension I10 and Mixed hyperlipidemia E78.2 [facility] [address] [place] [id number] [address] [place] [address] 11 May, 2015 [facility] [address] [address] 08 May, 2015 High risk sexual behavior Z7 2.51 ; STD exposure Z20.2 and Concern about STD in female without diagnosis Z71.1 [facility] [address] [address] 05 May, 2015 [facility] [address] [address] Apr, Neuroforaminal stenosis of s pine M99.89 ; Mixed hyperlipidemia E78.2 ; Essential hypertension I10 and Hypokalemia E87.6 [place] [address] [address] Mar, [facility] [address] [address] Mar, Hypokalemia E87.[address] [address] Mar, Neuroforaminal stenosis of s pine M99.89 ; Mixed hyperlipidemia E78.2 ; Neck pain M54.2 ; Essential hypertension I10 ; Abnormal fasting glucose R73.09 ; Hypokalemia E87.6 and Constipation K59.00 [facility] [address] [place] [id number] [address] [place] [address] Feb, Neuroforaminal stenosis of s pine M99.89 ; Mixed hyperlipidemia E78.2 ; Neck pain M54.2 ; Essential hypertension I10 ; Abnormal fasting glucose R73.09 ; Hypokalemia E87.6 and Constipation K59.00 [place] [address] [address] Feb, Elevated fasting blood sugar R73.01 [place] [address] [place] [address] [address] Feb, Elevated fasting blood sugar R73.01 [facility] [address] [facility] [id number] [address] [place] [phone] Feb, Hair loss L65.9 [facility] [address] [facility] [id number] [address] [place] [phone] Feb, Sinusitis J32.9 ; Essential hypertension I10 and Hair loss L65.9 [facility] [address] [facility] [id number] [address] [place] [address] Jan, [place] [address] [facility] [id number] [place] [address] Jan, Essential hypertension I10 ; Neuroforaminal stenosis of spine M99.89 ; Neck pain M54.2 ; Mixed hyperlipidemia E78.2 and Anxiety F41.9 [place] [address] [place] [id number] [address] [place] [address] Jan, [place] [address] [place] [id number] [address] [place] [address] Jan, Mixed hyperlipidemia E78.2 ; Essential (primary) hypertension I10 ; Strain of muscle, fascia and tendon at neck level, subsequent encounter S16.1XXD and Tension-type headache, unspecified, not intractable G44.209 [place] [address] [facility] [id number] [address] [place] [address] Dec, Lumbar back pain 724.2 and N euroforaminal stenosis of spine 724.00 [place] [address] [facility] [id number] [address] [place] [address] Nov, [place] [address] [place] [id number] [place] [address] Nov, Lumbar back pain 724.2 and N euroforaminal stenosis of spine 724.00 [place] [address] [place] [id number] [address] [place] [address] Nov, Edema 782.3 ; Lumbar back pa in 724.2 ; Essential hypertension, benign 401.1 ; Hyperlipemia 272.4 ; Neuroforaminal stenosis of spine 724.00 and Post-concussion headache 339.20 [facility] [address] [id number] [address] [place] [phone] Nov, [facility] [address] [id number] [address] [place] [address] Nov, [facility] [address] [id number] [address] [place] [address] Oct, Essential hypertension, sheridan gn 401.1 [facility] [address] [id number] [address] [place] [address] Oct, Edema 782.3 ; Lumbar back pa in 724.2 ; Essential hypertension, benign 401.1 ; Hyperlipemia 272.4 ; Neuroforaminal stenosis of spine 724.00 and Post-concussion headache 339.20 [place] [address] [id number] [address] [place] [address] Oct, [facility] [address] [id number] [address] [place] [address] Oct, Edema 782.3 [place] [address] [facility] [id number] [address] [place] [phone] Oct, Lumbar back pain 724.2 [place] [address] [id number] [address] [place] [address] Oct, Cervicalgia 723.1 ; Lumbar b ack pain 724.2 and High risk medication use V58.69 [place] [address] [id number] [address] [place] [address] Sep, [place] [address] [facility] [id number] [address] [place] [address] Sep, Lumbar strain 847.2 [place] [address] [facility] [id number] [address] [place] [address] August, Edema 782.3 and Eustachian t ube dysfunction 381.81 [facility] [address] [id number] [address] [place] [id number] August, [facility] [place] [facility] [address] [facility] [id number] [address] [place] [address] August, Eustachian tube dysfunction 381.81 [facility] [address] [facility] [id number] [address] [place] [address] Jul, Otalgia 388.70 and Otitis me jonathon 382.9 [facility] [address] [facility] [id number] [address] [place] [address] Jul, [facility] [address] [facility] [id number] [address] [place] [phone] Jul, [facility] [address] [facility] [id number] [address] [place] [id number] Jul, [facility] [address] [facility] [id number] [address] [place] [phone] Jul, [facility] [address] [facility] [id number] [address] [place] [phone] Jul, [facility] [address] [facility] [id number] [address] [place] [phone] Jun, [facility] [address] [facility] [id number] [address] [place] [phone] Jun, [facility] [address] [id number] [address] [place] [address] Jun, [facility] [address] [id number] [address] [place] [phone] May, [facility] [address] [facility] [id number] [address] [place] [phone] May, [facility] [address] [facility] [id number] [address] [place] [phone] May, [facility] [place] [facility] [address] [id number] [address] [place] [address], [place] [address] May, 2014 [facility] [address] [id number] [address] [place] [address], [place] [address] May, 2014 [facility] [place] [facility] [address] [id number] [address] [place] [address], [place] [address] May, 2014 [facility] [place] [facility] [address] [id number] [address] [place] [address], [place] [address] May, 2014 [facility] [place] [facility] [address] [id number] [address] [place] [address], [place] [address] May, 2014 [facility] [place] [facility] [address] [id number] [address] [place] [address], [place] [address] May, 2014 [facility] [place] [facility] [address] [id number] [address] [place] [address], [place] [address] May, [facility] [place] [facility] [address] [id number] [address] [place] [address], [place] [address] Apr, [facility] [address] [id number] [address] [place] [address], [place] [address] Apr, [facility] [address] [id number] [address] [place] [address], [place] [address] Apr, [facility] [address] [id number] [address] [place] [address], [place] [address] Apr, [facility] [place] [facility] [address] [id number] [address] [place] [address], [place] [address] Apr, [facility] [place] [facility] [address] [id number] [address] [place] [address], [place] [address] Apr, [facility] [place] [facility] [address] [id number] [address] [place] [address], [place] [address] Apr, [facility] [place] [facility] [address] [id number] [address] [place] [address], [place] [address] Apr, [facility] [place] [facility] [address] [id number] [address] [place] [address], [place] [address] Apr, [facility] [address] [id number] [address] [place] [address], [place] [address] Apr, [facility] [address] [id number] [address] [place] [address], [place] [address] Apr, [facility] [address] [id number] [address] [place] [address], [place] [address] Apr, [facility] [address] [id number] [address] [place] [address], [place] [address] Apr, [facility] [address] [id number] [address] [place] [address], [place] [address] Apr, [facility] [address] [id number] [address] [place] [address], [place] [address] Apr, [facility] [address] [id number] [address] [place] [address], [place] [address] Mar, [facility] [place] [facility] [address] [id number] [address] [place] [address], [place] [address] Mar, [facility] [address] [id number] [address] [place] [address], [place] [address] Mar, [facility] [address] [id number] [address] [place] [address], [place] [address] Mar, [facility] [address] [id number] [address] [place] [address], [place] [address] Feb, [facility] [place] [facility] [address] [id number] [address] [place] [phone] Feb, [facility] [place] [facility] [address] [id number] [address] [place] [address], [place] [address] Feb, [facility] [place] [facility] [address] [id number] [address] [place] [address], [place] [address] Feb, [facility] [place] [facility] [address] [id number] [address] [place] [address], [place] [address] Jan, [facility] [place] [facility] [address] [id number] [address] [place] [address], [place] [address] 07 Jan, 2014 [facility] [address] [id number] [address] [place] [address], [place] [address] Jan, [facility] [place] [facility] [address] [id number] [address] [place] [address], [place] [address] Jan, [facility] [place] [facility] [address] [id number] [address] [place] [address], [place] [id number] Jan, [facility] [place] [facility] [address] [id number] [address] [place] [address], [place] [address] Jan, [facility] [address] [id number] [address] [place] [address], [place] [address] Jan, [facility] [place] [facility] [address] [id number] [address] [place] [address], [place] [address] Jan, [facility] [address] [id number] [address] [place] [address], [place] [address] 29 Dec, 2013 [facility] [place] [facility] [address] [id number] [address] [place] [address], [place] [address] 29 Dec, 2013 [facility] [place] [facility] [address] [id number] [address] [place] [address], [place] [address] 04 Dec, 2013 [facility] [place] [facility] [address] [id number] [address] [place] [address], [place] [address] 04 Dec, 2013 [facility] [place] [facility] [address] [id number] [address] [place] [address], [place] [address] 14 Oct, 2013 [facility] [place] [facility] [address] [id number] [address] [place] [address], [place] [address] 14 Oct, 2013 [facility] [place] [facility] [address] [id number] [address] [place] [address], [place] [address] Oct, [facility] [place] [facility] [address] [id number] [address] [place] [address], [place] [address] Oct, 2013 [facility] [place] [facility] [address] [id number] [address] [place] [address], [place] [address] Oct, 2013 [facility] [place] [facility] [address] [id number] [address] [place] [address], [place] [address] Oct, 2013 [facility] [address] [id number] [address] [place] [address], [place] [address] Oct, [facility] [address] [id number] [address] [place] [address], [place] [address] Oct, [facility] [address] [id number] [address] [place] [address], [place] [address] Sep, [facility] [address] [id number] [address] [place] [address], [place] [address] Sep, [facility] [address] [id number] [address] [place] [address], [place] [address] Sep, [facility] [address] [id number] [address] [place] [address], [place] [address] Sep, [facility] [address] [id number] [address] [place] [address], [place] [address] Sep, [facility] [address] [id number] [address] [place] [address], [place] [address] Sep, [facility] [address] [id number] [address] [place] [address], [place] [address] Sep, [facility] [address] [id number] [address] [place] [address], [place] [address] Sep, [facility] [address] [id number] [address] [place] [address], [place] [address] Sep, [facility] [address] [id number] [address] [place] [address], [place] [address] Sep, [facility] [place] [facility] [address] [id number] [address] [place] [address], [place] [address] August, [facility] [address] [id number] [address] [place] [address], [place] [address] August, [facility] [address] [id number] [address] [place] [address], [place] [address] August, [facility] [address] [id number] [address] [place] [address], [place] [address] August, [facility] [address] [id number] [address] [place] [address], [place] [address] August, [facility] [address] [id number] [address] [place] [address], [place] [address] August, [facility] [address] [id number] [address] [place] [address], [place] [address] August, [facility] [address] [id number] [address] [place] [address], [place] [address] August, [facility] [address] [id number] [address] [place] [address], [place] [address] August, [facility] [address] [id number] [address] [place] [address], [place] [address] August, [facility] [address] [id number] [address] [place] [address], [place] [address] August, [facility] [address] [id number] [address] [place] [address], [place] [address] August, [facility] [address] [id number] [address] [place] [address], [place] [address] Jul, [facility] [address] [id number] [address] [place] [address], [place] [address] Jul, [facility] [address] [id number] [address] [place] [address], [place] [address] Jul, [facility] [address] [id number] [address] [place] [address], [place] [address] Jul, [facility] [address] [id number] [address] [place] [address], [place] [address] Jul, [facility] [address] [id number] [address] [place] [address], [place] [address] Jul, [facility] [address] [id number] [facility] [place] [address] Jun, [facility] [address] [id number] [address] [place] [address], [place] [address] Jun, [facility] [address] [id number] [address] [place] [address], [place] [address] May, [facility] [address] [id number] [address] [place] [address], [place] [address] May, [facility] [address] [id number] [address] [place] [address], [place] [address] Apr, [facility] [address] [id number] [address] [place] [address], [place] [address] Apr, [facility] [address] [id number] [address] [place] [address], [place] [address] Apr, [facility] [address] [id number] [address] [place] [address], [place] [address] Apr, [facility] [address] [id number] [address] [place] [address], [place] [address] Apr, [facility] [address] [id number] [address] [place] [address], [place] [address] Apr, [facility] [address] [id number] [address] [place] [address], [place] [address] Apr, [facility] [address] [id number] [address] [place] [address], [place] [address] Apr, [facility] [address] [id number] [address] [place] [address], [place] [address] Apr, [facility] [address] [id number] [address] [place] [address], [place] [address] Apr, [facility] [address] [id number] [address] [place] [address], [place] [address] Apr, [facility] [address] [id number] [address] [place] [address], [place] [address] Apr, [facility] [address] [id number] [address] [place] [address], [place] [address] Apr, [facility] [address] [id number] [address] [place] [address], [place] [address] Mar, [facility] [address] [id number] [address] [place] [address], [place] [address] Mar, [facility] [address] [id number] [address] [place] [address], [place] [address] Mar, [facility] [address] [id number] [address] [place] [address], [place] [address] Mar, [facility] [address] [id number] [address] [place] [address], [place] [address] Feb, [facility] [facility] [address] [id number] [address] [place] [address], [place] [address] Feb, [facility] [address] [id number] [address] [place] [address], [place] [address] Feb, [facility] [address] [id number] [address] [place] [address], [place] [address] Feb, [facility] [address] [id number] [address] [place] [id number] 14 Jan, 2013 [facility] [address] [id number] [address] [place] [id number] 14 Jan, 2013 [facility] [address] [id number] [address] [place] [id number] 11 Jan, 2013 [facility] [address] [id number] [address] [place] [address], [place] [address] 11 Jan, 2013 [facility] [address] [id number] [address] [place] [id number] 10 Jan, 2013 [facility] [address] [id number] [address] [place] [id number] 10 Jan, 2013 [facility] [address] [id number] [address] [place] [address], [place] [address] Jan, [facility] [address] [id number] [address] [place] [address], [place] [address] Jan, [facility] [address] [id number] [address] [place] [address], [place] [address] Jan, [facility] [address] [id number] [address] [place] [address], [place] [address] 26 Dec, 2012 [facility] [address] [id number] [address] [place] [address], [place] [address] 16 Dec, 2012 [facility] [address] [id number] [address] [place] [address], [place] [address] 16 Dec, 2012 [facility] [address] [id number] [address] [place] [address], [place] [address] Dec, [facility] [address] [id number] [address] [place] [address], [place] [address] Nov, [facility] [address] [id number] [address] [place] [address], [place] [address] Nov, [facility] [address] [id number] [address] [place] [address], [place] [address] Nov, [facility] [address] [id number] [address] [place] [address], [place] [address] Nov, [facility] [address] [id number] [address] [place] [address], [place] [address] Oct, [facility] [address] [id number] [address] [place] [address], [place] [address] Sep, [facility] [address] [id number] [address] [place] [address], [place] [address] August, [facility] [address] [id number] [address] [place] [address], [place] [address] August, [facility] [address] [id number] [address] [place] [address], [place] [address] August, [facility] [address] [id number] [address] [place] [address], [place] [address] August, [facility] [address] [id number] [address] [place] [address], [place] [address] August, [facility] [address] [id number] [address] [place] [address], [place] [address] August, [facility] [address] [id number] [address] [place] [address], [place] [address] August, [facility] [address] [id number] [address] [place] [address], [place] [address] August, [facility] [address] [id number] [address] [place] [address], [place] [address] August, [facility] [address] [id number] [address] [place] [address], [place] [address] August, [facility] [address] [id number] [address] [place] [address], [place] [address] August, [facility] [address] [id number] [address] [place] [address], [place] [address] August, [facility] [address] [id number] [address] [place] [address], [place] [address] Jul, [facility] [address] [id number] [address] [place] [address], [place] [address] Jul, [facility] [address] [id number] [address] [place] [address], [place] [address] 18 Jul, 2012 [facility] [address] [id number] [address] [place] [address], [place] [address] Jul, [facility] [address] [id number] [address] [place] [address], [place] [address] Jul, [facility] [address] [id number] [address] [place] [address], [place] [address] 08 Jul, 2012 [facility] [address] [id number] [address] [address] Jul, [facility] [address] [id number] [address] [place] [address], [place] [address] Jul, [facility] [address] [id number] [address] [place] [address], [place] [address] Jul, [facility] [address] [id number] [address] [place] [address], [place] [address] Jul, [facility] [address] [id number] [address] [place] [address], [place] [address] Jul, [facility] [address] [id number] [address] [place] [address], [place] [address] Jun, [facility] [address] [id number] [address] [place] [address], [place] [address] Jun, [facility] [address] [id number] [address] [place] [address], [place] [address] Jun, [facility] [address] [id number] [address] [place] [address], [place] [address] Jun, [facility] [address] [id number] [address] [place] [address], [place] [address] May, [facility] [address] [id number] [address] [place] [address], [place] [address] May, [facility] [address] [id number] [address] [place] [address], [place] [address] 05 May, 2012 [facility] [address] [id number] [address] [place] [address] May, [facility] [address] [id number] [address] [place] [address], [place] [address] May, [facility] [address] [id number] [address] [place] [address], [place] [address] May, [facility] [address] [id number] [address] [place] [address], [place] [address] Apr, [facility] [address] [id number] [address] [place] [address], [place] [address] 31 Apr, 2012 [facility] [address] [id number] [address] [place] [address], [place] [address] 30 Apr, 2012 [facility] [address] [id number] [address] [place] [address], [place] [address] 28 Apr, 2012 [facility] [address] [id number] [address] [place] [address], [place] [address] 15 Mar, 2012 [facility] [address] [id number] [address] [place] [address], [place] [address] 14 Mar, 2012 [facility] [address] [id number] [address] [place] [address], [place] [address] 14 Mar, 2012 [facility] [address] [id number] [address] [place] [address], [place] [address] 14 Mar, 2012 [facility] [address] [id number] [address] [place] [address], [place] [address] 14 Mar, 2012 [facility] [address] [id number] [address] [place] [address], [place] [address] 06 Mar, 2012 [facility] [address] [id number] [address] [place] [address], [place] [address] 06 Mar, 2012 [facility] [address] [id number] [address] [place] [address], [place] [address] Feb, [facility] [address] [id number] [address] [place] [address], [place] [address] Feb, [facility] [address] [id number] [address] [place] [address], [place] [address] Feb, [facility] [address] [id number] [address] [place] [address], [place] [address] Feb, [facility] [address] [id number] [address] [place] [address], [place] [address] Jan, [facility] [address] [id number] [address] [place] [address], [place] [address] Jan, [facility] [address] [id number] [address] [place] [address], [place] [address] Jan, [facility] [address] [id number] [address] [place] [address], [place] [address] Jan, [facility] [address] [id number] [address] [place] [address], [place] [address] Jan, [facility] [address] [id number] [address] [place] [address], [place] [address] Jan, [facility] [address] [id number] [address] [place] [address], [place] [address] Dec, [facility] [address] [id number] [address] [place] [address], [place] [address] Dec, [facility] [address] [id number] [address] [place] [address], [place] [address] Nov, [facility] [address] [id number] [address] [place] [address], [place] [address] Sep, [facility] [address] [id number] [address] [place] [address], [place] [address] August, [facility] [address] [id number] [address] [place] [address], [place] [address] August, [facility] [address] [id number] [address] [place] [address], [place] [address] August, [facility] [address] [id number] [address] [place] [address], [place] [address] August, [facility] [address] [id number] [address] [place] [address], [place] [address] August, [facility] [address] [id number] [address] [place] [address], [place] [address] Jun, [facility] [address] [id number] [address] [place] [address], [place] [address] Jun, [facility] [address] [id number] [address] [place] [address], [place] [address] Apr, [facility] [address] [id number] [address] [place] [address], [place] [address] Apr, [facility] [address] [id number] [address] [place] [address], [place] [address] 23 Mar, 2011 [facility] [address] [id number] [address] [place] [address], [place] [address] Feb, [facility] [address] [id number] [address] [place] [address], [place] [address] 14 Feb, 2011 [facility] [address] [id number] [address] [place] [address], [place] [address] 14 Feb, 2011 [facility] [address] [id number] [address] [place] [address], [place] [address] 17 Jan, 2011 [facility] [address] [id number] [address] [place] [address], [place] [address] 15 Jan, 2011 [facility] [address] [id number] [address] [place] [address], [place] [address] 15 Jan, 2011 [facility] [address] [id number] [address] [place] [address], [place] [address] 14 Jan, 2011 [facility] [address] [id number] [address] [place] [address], [place] [address] 15 May, 2010 [facility] [address] [id number] [address] [place] [address], [place] [address] 04 Mar, 2010 [facility] [address] [id number] [address] [place] [address], [place] [address] Oct, [facility] [address] [id number] [address] [place] [address], [place] [address] 14 Sep, 2009 [facility] [address] [id number] [address] [place] [address], [place] [address] 09 Mar, 2009 [facility] [address] [id number] [address] [place] [address], [place] [address] Jan, [facility] [address] [facility] [id number] [address] [place] [address] Jan, [facility] [address] [facility] [id number] [address] [place] [address] May, IMMUNIZATIONS No Known Immunizations SOCIAL HISTORY [...] squamous atypia (no definite dyplasia). Performed at [facility] Dr. Joy. Medical History [...]
--- OUTSIDE RECORDS SUMMARY | 2019-11-23 06:13 | XMS REPORT ---
Author Author Liana Fuchs Organization 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 Active 447109028887 Problem Hematuria, unspecified type R31.9 Ac tive 81792055 Problem Seasonal allergies J30.2 Active 4 06633489 Problem Abnormal glucose R73.09 Active 102 923086 Problem Rhinosinusitis J32.9 Active 36551 4004 Problem Abnormal renal ultrasound R93.429 Acti ve [id number] Problem Essential hypertension I10 Active 42239806 Problem Mixed hyperlipidemia E78.2 Active 43925675 Problem Hypokalemia E87.6 Active 24836343 Problem Chronic pain due to trauma G89.21 Act juanis [id number] ALLERGIES No Information ENCOUNTERS Encounter Location Date Diagnosis [place] [address] [address] [facility] [id number] [address] [place] [phone] Jul, [place] [address] [address] [facility] [id number] [address] [place] [phone] Jul, Allergic conjunctivitis of b oth eyes H10.13 [place] [address] [facility] [id number] [address] [place] [address] Jun, Hypokalemia E87.6 [place] [address] [address] [facility] [id number] [address] [place] [phone] Jun, [place] [address] [address] [facility] [id number] [address] [place] [address] Jun, Neuroforaminal stenosis of s pine M99.89 [facility] [address] [id number] [address] [place] [phone] Jun, Lateral epicondylitis, left elbow M77.12 and Medial epicondylitis, left elbow M77.02 [facility] [address] [id number] [address] [place] [address] 16 Jun, 2019 Foraminal stenosis of lumbar region M48.061 ; Segmental dysfunction of thoracic region M99.02 ; Segmental dysfunction of lumbar region M99.03 and Segmental dysfunction of sacral region M99.04 [facility] [address] [id number] [address] [place] [phone] 28 May, 2019 Left elbow pain M25.522 [facility] [address] [id number] [address] [place] [phone] May, [facility] [address] [id number] [address] [place] [address] May, Left elbow pain M25.522 [facility] [address] [id number] [address] [place] [phone] May, Neuroforaminal stenosis of s pine M99.89 [facility] [address] [id number] [address] [place] [address] 26 May, 2019 Rhinosinusitis J32.9 ; Left elbow pain M25.522 and Neck pain M54.2 [facility] [address] [id number] [address] [place] [phone] 14 May, 2019 Lateral epicondylitis of lef t elbow M77.12 [facility] [address] [id number] [address] [place] [phone] Apr, Neuroforaminal stenosis of s pine M99.89 [facility] [address] [id number] [address] [place] [phone] 13 Apr, 2019 Essential hypertension I10 a nd Mixed hyperlipidemia E78.2 [place] [address] [id number] [address] [place] [phone] Mar, Neuroforaminal stenosis of s pine M99.89 [facility] [address] [id number] [address] [place] [phone] Mar, Epicondylitis, lateral, left M77.12 [facility] [address] [facility] [id number] [address] [place] [phone] Mar, [facility] [address] [facility] [id number] [address] [place] [phone] Mar, Neuroforaminal stenosis of s pine M99.89 [facility] [address] [facility] [id number] [address] [place] [phone] Feb, Neuroforaminal stenosis of s pine M99.89 ; Essential hypertension I10 ; Mixed hyperlipidemia E78.2 ; Encounter for immunization Z23 and Seasonal allergies J30.2 [facility] [address] [id number] [address] [place] [phone] Jan, Neuroforaminal stenosis of s pine M99.89 [facility] [address] [id number] [address] [place] [address] Dec, Neuroforaminal stenosis of s pine M99.89 [facility] [address] [facility] [id number] [address] [place] [phone] Dec, Neuroforaminal stenosis of s pine M99.89 [facility] [address] [id number] [address] [place] [phone] Nov, [facility] [address] [id number] [address] [place] [address] Nov, Neuroforaminal stenosis of s pine M99.89 [facility] [address] [facility] [id number] [address] [place] [phone] Nov, Acute non-recurrent maxillar y sinusitis J01.00 [facility] [address] [id number] [address] [place] [phone] Oct, Hypokalemia E87.6 [facility] [address] [id number] [address] [place] [address] Oct, Wasp sting, undetermined int ent, initial encounter T63.464A and Cellulitis of left lower extremity L03.116 [facility] [address] [id number] [address] [place] [address] Oct, Neuroforaminal stenosis of s pine M99.89 [facility] [address] [id number] [address] [place] [phone] Sep, [place] [address] [id number] [address] [place] [phone] Sep, [facility] [address] [id number] [address] [place] [phone] Sep, Routine screening for STI (s exually transmitted infection) Z11.3 [place] [address] [id number] [address] [place] [phone] 14 Sep, 2018 Routine screening for STI (s exually transmitted infection) Z11.3 ; Well woman exam with routine gynecological exam Z01.419 and Breast cancer screening Z12.39 [facility] [address] [id number] [address] [place] [phone] Sep, Neuroforaminal stenosis of s pine M99.89 [facility] [address] [id number] [address] [place] [address] August, Neuroforaminal stenosis of s pine M99.89 [facility] [address] [id number] [address] [place] [phone] August, Neuroforaminal stenosis of s pine M99.89 ; Chronic pain due to trauma G89.21 and Mixed hyperlipidemia E78.2 [facility] [address] [id number] [address] [place] [phone] 16 Jul, 2018 Viral upper respiratory illn ess J06.9 and Acute non-recurrent frontal sinusitis J01.10 [facility] [address] [id number] [address] [place] [phone] Jul, Congestion of nasal sinus R0 9.81 [facility] [address] [id number] [address] [place] [phone] Jul, Neuroforaminal stenosis of s pine M99.89 and Essential hypertension I10 [facility] [address] [id number] [address] [place] [phone] May, Neuroforaminal stenosis of s pine M99.89 [facility] [address] [id number] [address] [place] [phone] May, [facility] [address] [id number] [address] [place] [phone] May, Congestion of nasal sinus R0 9.81 [facility] [address] [id number] [address] [place] [phone] May, [facility] [address] [id number] [address] [place] [phone] Apr, Neuroforaminal stenosis of s pine M99.89 [facility] [address] [id number] [address] [place] [phone] Apr, Neuroforaminal stenosis of s pine M99.89 and Chronic pain due to trauma G89.21 [facility] [address] [id number] [address] [place] [phone] Mar, UTI (urinary tract infection ) N39.0 [facility] [address] [id number] [address] [place] [phone] Mar, Vertigo R42 [facility] [address] [facility] [id number] [address] [place] [phone] Mar, Neuroforaminal stenosis of s pine M99.89 [facility] [address] [facility] [id number] [address] [place] [phone] Feb, Extensor tendon disruption M 67.89 [facility] [address] [id number] [address] [place] [phone] 02 Feb, 2018 Neuroforaminal stenosis of s jose M99.89 and High risk medication use Z79.899 [facility] [address] [id number] [address] [place] [phone] Jan, Hypokalemia E87.6 [facility] [address] [id number] [address] [place] [phone] Jan, Flank pain R10.9 and Acute r ight-sided low back pain without sciatica M54.5 [place] [address] [address] [facility] [id number] [address] [place] [phone] Jan, Hypokalemia E87.6 [place] [address] [address] [facility] [id number] [address] [place] [phone] Jan, [place] [address] [address] [facility] [id number] [address] [place] [phone] Jan, URI, acute J06.9 [facility] [address] [facility] [id number] [address] [place] [phone] 05 Jan, 2018 Neuroforaminal stenosis of s jose M99.89 [place] [address] [facility] [id number] [address] [place] [address] 13 Dec, 2017 Lateral epicondylitis, right elbow M77.11 [place] [address] [id number] [address] [place] [phone] 11 Dec, 2017 Allergic rhinitis due to monica rosalina, unspecified seasonality J30.1 and Allergic conjunctivitis of both eyes H10.13 [place] [address] [address] [facility] [id number] [address] [place] [phone] 10 Dec, 2017 Neuroforaminal stenosis of s jose M99.89 [facility] [address] [facility] [id number] [address] [place] [phone] 06 Dec, 2017 Mixed hyperlipidemia E78.2 [place] [address] [address] [facility] [id number] [address] [place] [address] Dec, Abnormal glucose R73.09 ; Ab normal renal ultrasound R93.429 ; Dysuria R30.0 ; Cystitis without hematuria N30.90 ; Hypokalemia E87.6 ; Mixed hyperlipidemia E78.2 and Hematuria, unspecified type R31.9 [place] [address] [id number] [address] [place] [address] Nov, Hypokalemia E87.6 ; Mixed hy perlipidemia E78.2 and Hematuria, unspecified type R31.9 [place] [address] [id number] [address] [place] [phone] Nov, [place] [address] [id number] [address] [place] [address] Nov, Hypokalemia E87.6 [place] [address] [id number] [address] [place] [address] Nov, [place] [address] [id number] [address] [place] [address] Nov, Abnormal renal ultrasound R9 3.429 [place] [address] [address] [facility] [id number] [address] [place] [address] Nov, Abnormal renal ultrasound R9 3.429 [place] [address] [address] [facility] [id number] [address] [place] [address] Nov, Hematuria, unspecified type R31.9 and 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 [address] [id number] [address] [place] [phone] 16 Oct, 2017 [place] [address] [id number] [address] [place] [address] Oct, Neuroforaminal stenosis of s pine M99.89 [place] [address] [id number] [address] [place] [address] 10 Oct, 2017 Visit for TB skin test Z11.1 [place] [address] [id number] [address] [place] [phone] 05 Oct, 2017 Cystitis without hematuria N 30.90 [place] [address] [id number] [address] [place] [phone] 28 Sep, 2017 Screening breast examination Z12.39 [place] [address] [id number] [address] [place] [phone] 26 Sep, 2017 Dysuria R30.0 and Cystitis w ithout hematuria N30.90 [place] [address] [id number] [address] [place] [phone] 14 Sep, 2017 Essential hypertension I10 a nd 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 [place] [address] [id number] [address] [place] [address] Sep, Abnormal glucose R73.09 [place] [address] [id number] [address] [place] [address] August, Lateral epicondylitis, right elbow M77.11 [place] [address] [id number] [address] [place] [address] August, Screen for STD (sexually tra nsmitted disease) Z11.3 [place] [address] [id number] [address] [place] [address] August, Neuroforaminal stenosis of s pine M99.89 ; Mixed hyperlipidemia E78.2 ; Elevated fasting glucose R73.01 ; Screening mammogram, encounter for Z12.31 and Encounter for well woman exam without gynecological exam Z00.00 [facility] [address] [id number] [address] [place] [address] August, Neuroforaminal stenosis of s pine M99.89 [facility] [address] [id number] [address] [place] [address] August, Essential hypertension I10 ; Hypokalemia E87.6 and Mixed hyperlipidemia E78.2 [facility] [address] [id number] [address] [place] [address] Jul, [place] [address] [id number] [address] [place] [address] Jul, Neuroforaminal stenosis of s jose M99.89 [place] [address] [id number] [address] [place] [address] Jul, Lateral epicondylitis, right elbow M77.11 [place] [address] [id number] [address] [place] [address] Jul, [facility] [address] [id number] [address] [place] [address] Jun, High ankle sprain of right l ower extremity, initial encounter S93.431A [facility] [address] [id number] [address] [place] [address] Jun, Essential hypertension I10 [facility] [address] [id number] [address] [place] [phone] Jun, [facility] [address] [id number] [address] [place] [address] Jun, [facility] [address] [id number] [address] [place] [address] Jun, Neuroforaminal stenosis of s jose M99.89 [facility] [address] [id number] [address] [place] [address] Jun, Pain of right upper extremit y M79.601 and Essential hypertension I10 [place] [id number] [place] [address] Jun, [place] [address] [address] Jun, Dysuria R30.0 ; Acute cystit is with hematuria N30.01 and Screen for STD (sexually transmitted disease) Z11.3 [place] [address] [address] May, Chronic pain due to trauma G 89.21 [place] [address] [address] May, Essential hypertension I10 [address] [address] May, Neuroforaminal stenosis of s pine M99.[address] [address] Apr, Allergic reaction, initial e ncounter T78.40XA [address] [address] Apr, Low back pain, unspecified b ack pain laterality, unspecified chronicity, with sciatica presence unspecified M54.5 ; Acute cystitis with hematuria N30.01 ; 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 [address] [id number] [address] [place] [address] Feb, Neuroforaminal stenosis of s jose M99.89 [facility] [address] [id number] [address] [place] [phone] Feb, UTI (urinary tract infection ) N39.0 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 [address] [id number] [address] [place] [phone] Feb, [facility] [address] [id number] [address] [place] [address] Jan, Neuroforaminal stenosis of s pine M99.89 [facility] [address] [id number] [address] [place] [address] Dec, Neuroforaminal stenosis of s pine M99.89 [facility] [address] [id number] [address] [place] [phone] 18 Dec, 2016 Acute seasonal allergic rhin itis due to pollen J30.1 [facility] [address] [id number] [address] [place] [phone] Dec, [facility] [address] [id number] [address] [place] [phone] 08 Dec, 2016 Acute seasonal allergic rhin itis, unspecified trigger J30.2 ; Allergic conjunctivitis of both eyes H10.13 and Dysfunction of both eustachian tubes H69.83 [facility] [address] [id number] [address] [place] [phone] 07 Dec, 2016 [facility] [address] [id number] [address] [place] [address] Dec, Nevus D22.9 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 [address] [id number] [address] [place] [address] Nov, Neuroforaminal stenosis of s pine M99.89 ; Essential hypertension I10 ; Mixed hyperlipidemia E78.2 ; Hypokalemia E87.6 ; Neck pain M54.2 and Nevus D22.9 [facility] [address] [id number] [address] [place] [phone] Oct, Neuroforaminal stenosis of s pine M99.89 [facility] [address] [id number] [address] [place] [phone] Sep, Neuroforaminal stenosis of s pine M99.89 [facility] [address] [id number] [address] [place] [phone] Sep, [facility] [address] [id number] [address] [place] [phone] August, [facility] [address] [id number] [address] [place] [phone] August, Neck pain M54.2 and Neurofor aminal stenosis of spine M99.89 [facility] [address] [id number] [address] [place] [phone] August, Routine gynecological examin ation Z01.419 and Screening breast examination Z12.39 [facility] [address] [id number] [address] [place] [phone] Jul, [facility] [address] [id number] [address] [place] [phone] Jul, [facility] [address] [id number] [address] [place] [phone] Jul, Neuroforaminal stenosis of s pine M99.89 [facility] [address] [id number] [address] [place] [phone] Jul, [facility] [address] [id number] [address] [place] [phone] Jul, Neuroforaminal stenosis of l umbar 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 [facility] [address] [id number] [address] [place] [phone] Jul, [facility] [address] [id number] [address] [place] [phone] Jul, [facility] [address] [id number] [address] [place] [phone] Jun, Neuroforaminal stenosis of s pine M99.89 [facility] [address] [facility] [id number] [address] [place] [phone] Jun, Uterine leiomyoma, unspecifi ed location D25.9 and Allergic reaction caused by a drug, initial encounter T78.40XA [facility] [address] [id number] [address] [place] [phone] Jun, [facility] [address] [facility] [id number] [address] [place] [phone] May, UTI symptoms R39.9 and Pain of right sacroiliac joint M53.3 [facility] [address] [id number] [address] [place] [phone] May, Neuroforaminal stenosis of s pine M99.89 [facility] [address] [id number] [address] [place] [phone] May, [facility] [address] [facility] [id number] [address] [place] [phone] May, Acute mucoid otitis media of left ear H65.112 and Acute non- recurrent maxillary sinusitis J01.00 [facility] [address] [facility] [id number] [address] [place] [phone] May, Acute bacterial conjunctivit is of both eyes H10.33 ; Left arm pain M79.602 and Hypokalemia E87.6 [place] [address] [address] [facility] [id number] [address] [place] [phone] Apr, [place] [id number] [facility] [id number] [address] [place] [phone] Apr, Neuroforaminal stenosis of s pine M99.89 ; Neck pain M54.2 ; Chronic pain due to trauma G89.21 ; Mixed hyperlipidemia E78.2 ; Essential hypertension I10 and Hypokalemia E87.6 [place] [address] [address] [facility] [id number] [address] [place] [address] Mar, Oral candidiasis B37.0 ; Nathaniel roforaminal stenosis of spine M99.89 ; Neck pain M54.2 and Chronic pain due to trauma G89.21 [place] [address] [address] [place] [id number] [address] [place] [phone] Feb, [place] [address] [address] [facility] [id number] [address] [place] [address] Feb, [place] [address] [address] [facility] [id number] [address] [place] [phone] Feb, UTI (urinary tract infection ) N39.0 [place] [address] [address] [facility] [id number] [address] [place] [address] Feb, Dysuria R30.0 [place] [address] [address] [facility] [id number] [address] [place] [address] Feb, Dysuria R30.0 [place] [address] [address] [facility] [id number] [address] [place] [phone] Feb, Neuroforaminal stenosis of s pine M99.89 ; Neck pain M54.2 ; Essential hypertension I10 ; Chronic pain due to trauma G89.21 ; Dysuria R30.0 ; Abnormal MRI, shoulder R93.8 and Acute cystitis without hematuria N30.00 [place] [address] [id number] [address] [place] [phone] Jan, [facility] [address] [id number] [address] [place] [phone] Jan, [facility] [address] [id number] [address] [place] [phone] Jan, [facility] [address] [id number] [address] [place] [phone] Jan, Abnormal MRI R93.8 [facility] [address] [id number] [address] [place] [phone] 29 Dec, 2015 [facility] [address] [id number] [address] [place] [phone] 15 Dec, 2015 Acute pain of left shoulder M25.512 [facility] [address] [id number] [address] [place] [phone] 09 Dec, 2015 [facility] [address] [id number] [address] [place] [phone] 08 Dec, 2015 [facility] [address] [id number] [address] [place] [phone] 07 Dec, 2015 Acute pain of left shoulder M25.512 [facility] [address] [id number] [address] [place] [phone] Nov, [facility] [address] [id number] [address] [place] [phone] 16 Nov, 2015 Neuroforaminal stenosis of s pine M99.89 ; Neck pain M54.2 ; Abnormal mammogram R92.8 ; Essential hypertension I10 and Chronic pain due to trauma G89.21 [facility] [address] [id number] [address] [place] [phone] Nov, [facility] [address] [id number] [address] [place] [phone] Oct, Acute stress disorder F43.0 [facility] [address] [id number] [address] [place] [phone] Oct, [facility] [address] [id number] [address] [place] [phone] Oct, [facility] [address] [id number] [address] [place] [phone] Oct, [facility] [address] [id number] [address] [place] [phone] Sep, [facility] [address] [id number] [address] [place] [phone] August, [facility] [address] [id number] [address] [place] [address] Jul, Neuroforaminal stenosis of s pine M99.89 ; Neck pain M54.2 ; Abnormal mammogram R92.8 and Essential hypertension I10 [facility] [address] [id number] [address] [place] [phone] Jul, [facility] [address] [id number] [address] [place] [phone] Jul, [facility] [address] [id number] [address] [place] [phone] Jul, Abnormal mammogram R92.8 [facility] [address] [id number] [address] [place] [phone] Jul, [facility] [address] [id number] [address] [place] [id number] Jul, UTI (urinary tract infection ) N39.0 [facility] [address] [id number] [address] [place] [phone] Jul, Dysuria R30.0 [facility] [address] [id number] [address] [place] [phone] Jun, [facility] [address] [id number] [address] [place] [phone] Jun, [facility] [address] [id number] [address] [place] [address] Jun, Hypokalemia E87.6 and Hematu martina R31.9 [place] [address] [address] [facility] [id number] [address] [place] [phone] Jun, Hypokalemia E87.6 [facility] [address] [facility] [id number] [address] [place] [phone] Jun, [place] [address] [address] [facility] [id number] [place] [phone] Jun, Hypokalemia E87.6 [place] [address] [address] [facility] [id number] [place] [phone] Jun, Hypokalemia E87.6 [place] [address] [address] [place] [id number] [place] [phone] Jun, Neuroforaminal stenosis of s pine M99.89 ; Hypokalemia E87.6 ; Neck pain M54.2 ; Essential hypertension I10 ; Mixed hyperlipidemia E78.2 and Screening breast examination Z12.39 [place] [address] [address] Jun, Dysuria R30.0 ; UTI (urinary tract infection) N39.0 and Hematuria R31.9 [place] [address] [address] [place] [id number] [place] [phone] May, [place] [address] [phone] May, High risk sexual behavior Z7 2.51 ; Hypokalemia E87.6 ; Neuroforaminal stenosis of spine M99.89 ; Neck pain M54.2 ; Essential hypertension I10 ; Mixed hyperlipidemia E78.2 ; STD exposure Z20.2 and Concern about STD in female without diagnosis Z71.1 [place] [address] [address] [place] [id number] [address] [place] [phone] 16 May, 2015 Neuroforaminal stenosis of s pine M99.89 ; Neck pain M54.2 ; Hypokalemia E87.6 ; Essential hypertension I10 and Mixed hyperlipidemia E78.2 [facility] [address] [address] May, [facility] [address] [place] [id number] [address] [place] [phone] 08 May, 2015 High risk sexual behavior Z7 2.51 ; STD exposure Z20.2 and Concern about STD in female without diagnosis Z71.1 [facility] [address] [address] May, [facility] [address] [address] Apr, Neuroforaminal stenosis of s pine M99.89 ; Mixed hyperlipidemia E78.2 ; Essential hypertension I10 and Hypokalemia E87.6 [place] [address] [address] Mar, [facility] [address] [address] Mar, Hypokalemia E87.6 [place] [address] [address] Mar, Neuroforaminal stenosis of s pine M99.89 ; Mixed hyperlipidemia E78.2 ; Neck pain M54.2 ; Essential hypertension I10 ; Abnormal fasting glucose R73.09 ; Hypokalemia E87.6 and Constipation K59.00 [facility] [address] [place] [id number] [address] [place] [address] Feb, Neuroforaminal stenosis of s pine M99.89 ; Mixed hyperlipidemia E78.2 ; Neck pain M54.2 ; Essential hypertension I10 ; Abnormal fasting glucose R73.09 ; Hypokalemia E87.6 and Constipation K59.00 [place] [address] [address] Feb, Elevated fasting blood sugar R73.01 [facility] [address] [id number] [address] [place] [phone] Feb, Elevated fasting blood sugar R73.01 [facility] [address] [id number] [address] [place] [address] Feb, Hair loss L65.9 [place] [address] [id number] [address] [place] [phone] Feb, Sinusitis J32.9 ; Essential hypertension I10 and Hair loss L65.9 [facility] [address] [id number] [address] [place] [phone] Jan, [place] [address] [address] [facility] [id number] [address] [place] [phone] Jan, Essential hypertension I10 ; Neuroforaminal stenosis of spine M99.89 ; Neck pain M54.2 ; Mixed hyperlipidemia E78.2 and Anxiety F41.9 [place] [address] [id number] [address] [place] [address] Jan, [place] [address] [id number] [address] [place] [address] Jan, Mixed hyperlipidemia E78.2 ; Essential (primary) hypertension I10 ; Strain of muscle, fascia and tendon at neck level, subsequent encounter S16.1XXD and Tension-type headache, unspecified, not intractable G44.209 [place] [address] [id number] [address] [place] [address] Dec, Lumbar back pain 724.2 and N euroforaminal stenosis of spine 724.00 [place] [address] [id number] [address] [place] [phone] Nov, [place] [address] [address] [facility] [id number] [address] [place] [address] Nov, Lumbar back pain 724.2 and N euroforaminal stenosis of spine 724.00 [place] [address] [address] [facility] [id number] [address] [place] [address] Nov, Edema 782.3 ; Lumbar back pa in 724.2 ; Essential hypertension, benign 401.1 ; Hyperlipemia 272.4 ; Neuroforaminal stenosis of spine 724.00 and Post-concussion headache 339.20 [facility] [address] [facility] [id number] [address] [place] [phone] Nov, [facility] [address] [id number] [address] [place] [phone] Nov, [facility] [address] [id number] [address] [place] [phone] Oct, Essential hypertension, sheridan gn 401.1 [facility] [address] [facility] [id number] [address] [place] [address] Oct, Edema 782.3 ; Lumbar back pa in 724.2 ; Essential hypertension, benign 401.1 ; Hyperlipemia 272.4 ; Neuroforaminal stenosis of spine 724.00 and Post-concussion headache 339.20 [facility] [address] [facility] [id number] [address] [place] [phone] Oct, [facility] [address] [facility] [id number] [address] [place] [address] Oct, Edema 782.3 [facility] [address] [facility] [id number] [address] [place] [phone] Oct, Lumbar back pain 724.2 [facility] [address] [facility] [id number] [address] [place] [phone] Oct, Cervicalgia 723.1 ; Lumbar b ack pain 724.2 and High risk medication use V58.69 [facility] [address] [facility] [id number] [address] [place] [phone] Sep, [facility] [address] [facility] [id number] [address] [place] [phone] Sep, Lumbar strain 847.2 [facility] [address] [facility] [id number] [address] [place] [address] August, Edema 782.3 and Eustachian t ube dysfunction 381.81 [facility] [address] [facility] [id number] [address] [place] [phone] August, [facility] [address] [facility] [id number] [address] [place] [phone] August, Eustachian tube dysfunction 381.81 [facility] [address] [facility] [id number] [address] [place] [phone] Jul, Otalgia 388.70 and Otitis me jonathon 382.9 [facility] [address] [place] [id number] [address] [place] [phone] Jul, [facility] [address] [place] [id number] [address] [place] [phone] Jul, [facility] [address] [place] [id number] [address] [place] [phone] Jul, [facility] [address] [facility] [id number] [address] [place] [phone] Jul, [facility] [address] [place] [id number] [address] [place] [phone] Jul, [facility] [address] [place] [id number] [address] [place] [phone] Jun, [facility] [address] [facility] [id number] [address] [place] [phone] Jun, [facility] [address] [facility] [id number] [address] [place] [phone] Jun, [facility] [address] [facility] [id number] [address] [place] [phone] May, [facility] [address] [facility] [id number] [address] [place] [phone] May, [facility] [address] [facility] [id number] [address] [place] [phone] May, [facility] [address] [id number] [address] [place] [address], [place] [address] May, [facility] [address] [id number] [address] [place] [address], [place] [address] May, [facility] [address] [id number] [address] [place] [address], [place] [address] May, [facility] [address] [id number] [address] [place] [address], [place] [address] May, [facility] [address] [id number] [address] [place] [address], [place] [address] May, [facility] [address] [id number] [address] [place] [address], [place] [address] May, [facility] [address] [id number] [address] [place] [address], [place] [address] May, [facility] [address] [id number] [address] [place] [address], [place] [address] Apr, [facility] [address] [id number] [address] [place] [address], [place] [address] Apr, [facility] [address] [id number] [address] [place] [address], [place] [address] Apr, [facility] [address] [id number] [address] [place] [address], [place] [address] Apr, [facility] [address] [id number] [address] [place] [address], [place] [address] Apr, [facility] [address] [id number] [address] [place] [address], [place] [address] Apr, [facility] [address] [id number] [address] [place] [address], [place] [address] Apr, [facility] [address] [id number] [address] [place] [address], [place] [address] Apr, [facility] [address] [id number] [address] [place] [address], [place] [address] Apr, [facility] [address] [id number] [address] [place] [address], [place] [address] Apr, [facility] [address] [id number] [address] [place] [address], [place] [address] Apr, [facility] [address] [id number] [address] [place] [address], [place] [address] Apr, [facility] [address] [id number] [address] [place] [address], [place] [address] Apr, [facility] [address] [id number] [address] [place] [address], [place] [address] Apr, [facility] [address] [id number] [address] [place] [address], [place] [address] Apr, [facility] [address] [id number] [address] [place] [address], [place] [address] Mar, [facility] [address] [id number] [address] [place] [address], [place] [address] Mar, [facility] [address] [id number] [address] [place] [address], [place] [address] Mar, [facility] [address] [id number] [address] [place] [address], [place] [address] Mar, [facility] [address] [id number] [address] [place] [address], [place] [address] Feb, [facility] [address] [id number] [address] [place] [address], [place] [address] Feb, [facility] [address] [id number] [address] [place] [address], [place] [address] Feb, [facility] [address] [id number] [address] [place] [address], [place] [address] Feb, [facility] [address] [id number] [address] [place] [address], [place] [address] Jan, [facility] [address] [id number] [address] [place] [address], [place] [address] Jan, [facility] [address] [id number] [address] [place] [address], [place] [address] Jan, [facility] [address] [id number] [address] [place] [address], [place] [address] Jan, [facility] [address] [id number] [address] [place] [address], [place] [address] Jan, [facility] [address] [id number] [address] [place] [address], [place] [address] Jan, [facility] [address] [id number] [address] [place] [address], [place] [address] Jan, [facility] [address] [id number] [address] [place] [address], [place] [address] Jan, [facility] [address] [id number] [address] [place] [address], [place] [address] Dec, [facility] [address] [id number] [address] [place] [address], [place] [address] 29 Dec, 2013 [facility] [address] [id number] [address] [place] [address], [place] [address] Dec, [facility] [address] [id number] [address] [place] [address], [place] [address] Dec, [facility] [address] [id number] [address] [place] [address], [place] [address] Oct, [facility] [address] [id number] [address] [place] [address], [place] [address] Oct, [facility] [address] [id number] [address] [place] [address], [place] [address] Oct, [facility] [address] [id number] [address] [place] [address], [place] [address] Oct, [facility] [address] [id number] [facility] [place] [address] Oct, [facility] [address] [id number] [address] [place] [address], [place] [address] Oct, [facility] [address] [id number] [address] [place] [address], [place] [address] Oct, [facility] [address] [id number] [address] [place] [address], [place] [address] Oct, [facility] [address] [id number] [address] [place] [address], [place] [address] Sep, [facility] [address] [id number] [address] [place] [address], [place] [address] Sep, [facility] [address] [id number] [address] [place] [address], [place] [address] Sep, [facility] [address] [id number] [address] [place] [address], [place] [address] Sep, [facility] [address] [id number] [address] [place] [address], [place] [address] Sep, [facility] [address] [id number] [address] [place] [address], [place] [address] Sep, [facility] [address] [id number] [address] [place] [address], [place] [address] Sep, [facility] [address] [id number] [address] [place] [address], [place] [address] Sep, [facility] [address] [id number] [address] [place] [address], [place] [address] Sep, [facility] [address] [id number] [address] [place] [address], [place] [address] Sep, [facility] [address] [id number] [address] [place] [address], [place] [address] August, [facility] [address] [id number] [address] [place] [address], [place] [address] August, [facility] [address] [id number] [facility] [place] [address] August, [facility] [address] [id number] [address] [place] [address], [place] [address] August, [facility] [address] [id number] [address] [place] [address], [place] [address] August, [facility] [address] [id number] [address] [place] [address], [place] [address] August, [facility] [address] [id number] [address] [place] [address], [place] [address] August, [facility] [address] [id number] [address] [place] [address], [place] [address] August, [facility] [address] [id number] [address] [place] [address], [place] [address] August, [facility] [address] [id number] [address] [place] [address], [place] [address] August, [facility] [address] [id number] [address] [place] [address], [place] [address] August, [facility] [address] [id number] [address] [place] [address], [place] [address] August, [facility] [address] [id number] [address] [place] [address], [place] [address] Jul, [facility] [address] [id number] [address] [place] [address], [place] [address] Jul, [facility] [address] [id number] [address] [place] [address], [place] [address] Jul, [facility] [address] [id number] [address] [place] [address], [place] [address] Jul, [facility] [address] [id number] [address] [place] [address], [place] [address] Jul, [facility] [address] [id number] [address] [address] Jul, [facility] [address] [id number] [address] [place] [address], [place] [address] Jun, [facility] [address] [id number] [address] [place] [address], [place] [address] Jun, [facility] [address] [id number] [address] [place] [address], [place] [address] May, [facility] [address] [id number] [address] [place] [address], [place] [address] May, [facility] [address] [id number] [address] [place] [address], [place] [address] Apr, [facility] [address] [id number] [address] [place] [address], [place] [address] Apr, [facility] [address] [id number] [address] [place] [address], [place] [address] Apr, [facility] [address] [id number] [address] [place] [address], [place] [address] Apr, [facility] [address] [id number] [address] [place] [address], [place] [address] Apr, [facility] [address] [id number] [address] [place] [address], [place] [address] Apr, [facility] [address] [id number] [address] [place] [address], [place] [address] Apr, [facility] [address] [id number] [address] [place] [address] Apr, [facility] [address] [id number] [address] [place] [address], [place] [address] Apr, [facility] [address] [id number] [address] [place] [address], [place] [address] Apr, [facility] [address] [id number] [address] [place] [address], [place] [address] Apr, [facility] [address] [id number] [address] [place] [address], [place] [address] Apr, [facility] [address] [id number] [address] [place] [address], [place] [address] Apr, [facility] [address] [id number] [address] [place] [address], [place] [address] Mar, [facility] [address] [id number] [address] [place] [address], [place] [address] Mar, [facility] [address] [id number] [address] [place] [address], [place] [address] Mar, [facility] [address] [id number] [address] [place] [address], [place] [address] Mar, [facility] [address] [id number] [address] [place] [address], [place] [address] Feb, [facility] [address] [id number] [address] [place] [address], [place] [address] Feb, [facility] [address] [id number] [address] [place] [address], [place] [address] Feb, [facility] [address] [id number] [address] [place] [address], [place] [address] Feb, [facility] [address] [id number] [address] [place] [address], [place] [address] 14 Jan, 2013 [facility] [address] [id number] [address] [place] [address], [place] [address] 14 Jan, 2013 [facility] [address] [id number] [address] [place] [address], [place] [address] 11 Jan, 2013 [facility] [address] [id number] [address] [place] [address], [place] [address] 11 Jan, 2013 [facility] [address] [id number] [address] [place] [address], [place] [address] 10 Jan, 2013 [facility] [address] [id number] [address] [place] [address], [place] [address] Jan, [facility] [address] [id number] [address] [place] [address], [place] [address] Jan, [facility] [address] [id number] [address] [place] [address], [place] [address] Jan, [facility] [address] [id number] [address] [place] [address], [place] [address] Jan, [facility] [address] [id number] [address] [place] [address], [place] [address] Dec, [facility] [address] [id number] [address] [place] [address], [place] [address] Dec, [facility] [address] [id number] [address] [place] [address], [place] [address] 16 Dec, 2012 [facility] [address] [id number] [address] [place] [address], [place] [address] Dec, [facility] [address] [id number] [address] [place] [address], [place] [address] Nov, [facility] [address] [id number] [address] [place] [address], [place] [address] Nov, [facility] [address] [id number] [address] [place] [address], [place] [address] Nov, [facility] [address] [id number] [address] [place] [address], [place] [address] Nov, [facility] [address] [id number] [address] [place] [address], [place] [address] Oct, [facility] [address] [id number] [address] [place] [address], [place] [address] Sep, [facility] [address] [id number] [address] [place] [address], [place] [address] August, [facility] [address] [id number] [address] [place] [address], [place] [address] August, [facility] [address] [id number] [address] [place] [address] [place] [address] August, [facility] [address] [id number] [address] [place] [address], [place] [address] August, [facility] [address] [id number] [address] [place] [address], [place] [address] August, [facility] [address] [id number] [address] [place] [address], [place] [address] August, [facility] [address] [id number] [address] [place] [address], [place] [address] August, [facility] [address] [id number] [address] [place] [address], [place] [address] August, [facility] [address] [id number] [address] [place] [address], [place] [address] August, [facility] [address] [id number] [address] [place] [address], [place] [address] August, [facility] [address] [id number] [address] [place] [address], [place] [address] August, [facility] [address] [id number] [address] [place] [address], [place] [address] August, [facility] [address] [id number] [address] [place] [address], [place] [address] Jul, [facility] [address] [id number] [address] [place] [address], [place] [address] Jul, [facility] [address] [id number] [address] [place] [address], [place] [address] 18 Jul, 2012 [facility] [address] [id number] [address] [place] [address], [place] [address] 15 Jul, 2012 [facility] [address] [id number] [address] [place] [address], [place] [address] Jul, [facility] [address] [id number] [address] [place] [address], [place] [address] 08 Jul, 2012 [facility] [address] [id number] [address] [place] [address], [place] [address] Jul, [facility] [address] [id number] [address] [place] [address], [place] [address] Jul, [facility] [address] [id number] [address] [place] [address], [place] [address] Jul, [facility] [address] [id number] [address] [place] [address], [place] [address] Jul, [facility] [address] [id number] [address] [place] [address], [place] [address] Jul, [facility] [address] [id number] [address] [place] [address], [place] [address] Jun, [facility] [address] [id number] [address] [place] [address], [place] [address] Jun, [facility] [address] [id number] [address] [place] [address], [place] [address] Jun, [facility] [address] [id number] [address] [place] [address], [place] [address] Jun, [facility] [address] [id number] [address] [place] [address], [place] [address] May, [facility] [address] [id number] [address] [place] [address], [place] [address] 14 May, 2012 [facility] [address] [id number] [address] [place] [address], [place] [address] 05 May, 2012 [facility] [address] [id number] [address] [place] [address], [place] [address] May, [facility] [address] [id number] [address] [place] [address], [place] [address] May, [facility] [address] [id number] [address] [place] [address], [place] [address] May, [facility] [address] [id number] [address] [place] [address], [place] [address] 31 Apr, 2012 [facility] [address] [id number] [address] [place] [address], [place] [address] 31 Apr, 2012 [facility] [address] [id number] [address] [place] [address], [place] [address] 30 Apr, 2012 [facility] [address] [id number] [address] [place] [address], [place] [address] 28 Apr, 2012 [facility] [address] [id number] [address] [place] [address], [place] [address] 15 Mar, 2012 [facility] [address] [id number] [address] [place] [address], [place] [address] 14 Mar, 2012 [facility] [address] [id number] [address] [place] [address], [place] [address] 14 Mar, 2012 [facility] [address] [id number] [address] [place] [address], [place] [address] 14 Mar, 2012 [facility] [address] [id number] [address] [place] [address], [place] [address] 14 Mar, 2012 [facility] [address] [id number] [address] [place] [address], [place] [address] 06 Mar, 2012 [facility] [address] [id number] [address] [place] [address], [place] [address] 06 Mar, 2012 [facility] [address] [id number] [address] [place] [address], [place] [address] Feb, [facility] [address] [id number] [address] [place] [address], [place] [address] Feb, [facility] [address] [id number] [address] [place] [address], [place] [address] Feb, [facility] [address] [id number] [address] [place] [address], [place] [address] Feb, [facility] [address] [id number] [address] [place] [address], [place] [address] Jan, [facility] [address] [id number] [address] [place] [address], [place] [address] Jan, [facility] [address] [id number] [address] [place] [address], [place] [address] Jan, [facility] [address] [id number] [address] [place] [address], [place] [address] Jan, [facility] [address] [id number] [address] [place] [address], [place] [address] Jan, [facility] [address] [id number] [address] [place] [address], [place] [address] Jan, [facility] [address] [id number] [address] [place] [address], [place] [address] Dec, [facility] [address] [id number] [address] [place] [address], [place] [address] Dec, [facility] [address] [id number] [address] [place] [address], [place] [address] Nov, [facility] [address] [id number] [address] [place] [address], [place] [address] Sep, [facility] [address] [id number] [address] [place] [address], [place] [address] August, [facility] [address] [id number] [address] [place] [address], [place] [address] August, [facility] [address] [id number] [address] [place] [address], [place] [address] August, [facility] [address] [id number] [address] [place] [address], [place] [address] August, [facility] [address] [id number] [address] [place] [address], [place] [address] August, [facility] [address] [id number] [address] [place] [address], [place] [address] Jun, [facility] [address] [id number] [address] [place] [address], [place] [address] Jun, [facility] [address] [id number] [address] [place] [address], [place] [address] Apr, [facility] [address] [id number] [address] [place] [address], [place] [address] Apr, [facility] [address] [id number] [address] [place] [address], [place] [address] Mar, [facility] [address] [id number] [address] [place] [address], [place] [address] Feb, [facility] [address] [id number] [address] [place] [address], [place] [address] Feb, [facility] [address] [id number] [address] [place] [address], [place] [address] Feb, [facility] [address] [id number] [address] [place] [address], [place] [address] 17 Jan, 2011 [facility] [address] [id number] [address] [place] [address], [place] [address] 15 Jan, 2011 [facility] [address] [id number] [address] [place] [address], [place] [address] 15 Jan, 2011 [facility] [address] [id number] [address] [place] [address], [place] [address] 14 Jan, 2011 [facility] [address] [id number] [address] [place] [address], [place] [address] 15 May, 2010 [facility] [address] [id number] [address] [place] [address] Mar, [facility] [address] [id number] [address] [place] [address], [place] [address] Oct, [facility] [address] [id number] [address] [place] [address], [place] [address] Sep, [facility] [address] [id number] [address] [place] [address], [place] [address] Mar, [facility] [address] [id number] [address] [place] [address] Jan, [facility] [address] [facility] [id number] [address] [place] [address] Jan, [facility] [address] [facility] [id number] [address] [place] [address] May, IMMUNIZATIONS No Known Immunizations SOCIAL HISTORY Never Assessed REASON FOR VISIT PLAN OF CARE VITAL SIGNS Height 62 in 2014-05-01 Weight 175.59 lbs 2014-05-01 Temperature 98.1 degrees Fahrenheit 2014-05-01 Heart Rate 80 bpm 2014-05-01 Respiratory Rate 20 2014-05-01 Blood pressure systolic 142 mmHg 2014-05-01 Blood pressure diastolic 86 mmHg 2014-05-01 MEDICATIONS Unknown Medications RESULTS No Results PROCEDURES Procedure Date Ordered Result Body Site MAMMOGRAM, SCREENING May 01, 2014 TRICHOMONAS VAGIN, DIR PROBE May 01, 2014 SCR PAP SMER;NEW PT OBTAIN PREP&CONVY-LAB May 01, 2014 CYTOPATH C/V AUTO FLUID REDO May 01, 2014 CHYLMD TRACH, DNA, AMP PROBE May 01, 2014 HIV-1 May 01, 2014 BLOOD SEROLOGY, QUALITATIVE May 01, 2014 CULTURE, BACTERIA, OTHER May 01, 2014 INSTRUCTIONS MEDICATIONS ADMINISTERED No Known Medications [...]
--- OUTSIDE RECORDS SUMMARY | 2019-11-23 06:13 | XMS REPORT ---
Author Author Liana Coe Doctor Organization [facility] Address Unknown Phone Unavailable Care Team Providers Care Entry Processor Name Role Phone Migration, Doctor Unavailable Unavailable PROBLEMS Type Condition ICD9-CM Code ADN18-YO Code Onset Dates Condition S tatus SNOMED Code Problem Anxiety F41.9 Active 16659332 Problem Neck pain M54.2 Active 20280790 Problem Neuroforaminal stenosis of spine M99.89 Active 240230167294 Problem Hematuria, unspecified type R31.9 Ac tive 37736684 Problem Seasonal allergies J30.2 Active 4 42819350 Problem Abnormal glucose R73.09 Active 102 233382 Problem Rhinosinusitis J32.9 Active 10075 4004 Problem Abnormal renal ultrasound R93.429 Acti ve 99644272096204015 Problem Essential hypertension I10 Active 75013283 Problem Mixed hyperlipidemia E78.2 Active 69843503 Problem Hypokalemia E87.6 Active 70051299 Problem Chronic pain due to trauma G89.21 Act juanis [id number] ALLERGIES No Information ENCOUNTERS Encounter Location Date Diagnosis [place] [address] [id number] [place] [address] Jul, [place] [address] [id number] [address] [place] [address] Jul, Allergic conjunctivitis of b oth eyes H10.13 [facility] [address] [facility] [id number] [address] [place] [address] Jun, Hypokalemia E87.6 [place] [address] [place] [id number] [address] [place] [address] Jun, [place] [address] [place] [id number] [address] [place] [address] Jun, Neuroforaminal stenosis of s pine M99.89 [facility] [address] [place] [id number] [address] [place] [address] Jun, Lateral epicondylitis, left elbow M77.12 and Medial epicondylitis, left elbow M77.02 [place] [address] [facility] [id number] [address] [place] [address] 16 Jun, 2019 Foraminal stenosis of lumbar region M48.061 ; Segmental dysfunction of thoracic region M99.02 ; Segmental dysfunction of lumbar region M99.03 and Segmental dysfunction of sacral region M99.04 [place] [address] [place] [id number] [address] [place] [address] May, Left elbow pain M25.522 [place] [address] [place] [id number] [place] [address] May, [place] [address] [facility] [id number] [address] [place] [address] May, Left elbow pain M25.522 [place] [address] [place] [id number] [address] [place] [address] May, Neuroforaminal stenosis of s pine M99.89 [place] [address] [place] [id number] [address] [place] [address] May, Rhinosinusitis J32.9 ; Left elbow pain M25.522 and Neck pain M54.2 [place] [address] [place] [id number] [address] [place] [address] 14 May, 2019 Lateral epicondylitis of lef t elbow M77.12 [place] [address] [facility] [id number] [address] [place] [address] Apr, Neuroforaminal stenosis of s pine M99.89 [place] [address] [facility] [id number] [address] [place] [address] Apr, Essential hypertension I10 a nd Mixed hyperlipidemia E78.2 [place] [id number] [facility] [id number] [address] [place] [address] Mar, Neuroforaminal stenosis of s pine M99.89 [facility] [address] [id number] [address] [place] [address] Mar, Epicondylitis, lateral, left M77.12 [facility] [address] [id number] [address] [place] [address] Mar, [facility] [address] [id number] [address] [place] [address] Mar, Neuroforaminal stenosis of s pine M99.89 [facility] [address] [id number] [address] [place] [address] Feb, Neuroforaminal stenosis of s pine M99.89 ; Essential hypertension I10 ; Mixed hyperlipidemia E78.2 ; Encounter for immunization Z23 and Seasonal allergies J30.2 [facility] [address] [facility] [id number] [address] [place] [address] Jan, Neuroforaminal stenosis of s pine M99.89 [facility] [address] [id number] [address] [place] [address] Dec, Neuroforaminal stenosis of s pine M99.89 [facility] [address] [id number] [address] [place] [address] Dec, Neuroforaminal stenosis of s pine M99.89 [facility] [address] [id number] [address] [place] [address] Nov, [facility] [address] [id number] [address] [place] [address] Nov, Neuroforaminal stenosis of s pine M99.89 [facility] [address] [facility] [id number] [address] [place] [address] Nov, Acute non-recurrent maxillar y sinusitis J01.00 [facility] [address] [id number] [address] [place] [address] Oct, Hypokalemia E87.6 [facility] [address] [id number] [address] [place] [address] Oct, Wasp sting, undetermined int ent, initial encounter T63.464A and Cellulitis of left lower extremity L03.116 [place] [address] [facility] [id number] [address] [place] [address] Oct, Neuroforaminal stenosis of s pine M99.89 [place] [address] [id number] [address] [place] [address] Sep, [place] [address] [id number] [address] [place] [address] Sep, [place] [address] [facility] [id number] [address] [place] [address] 18 Sep, 2018 Routine screening for STI (s exually transmitted infection) Z11.3 [place] [address] [facility] [id number] [address] [place] [address] 14 Sep, 2018 Routine screening for STI (s exually transmitted infection) Z11.3 ; Well woman exam with routine gynecological exam Z01.419 and Breast cancer screening Z12.39 [place] [address] [id number] [address] [place] [address] Sep, Neuroforaminal stenosis of s pine M99.89 [place] [address] [facility] [id number] [address] [place] [address] August, Neuroforaminal stenosis of s pine M99.89 [place] [address] [facility] [id number] [address] [place] [address] August, Neuroforaminal stenosis of s pine M99.89 ; Chronic pain due to trauma G89.21 and Mixed hyperlipidemia E78.2 [place] [address] [facility] [id number] [address] [place] [address] 16 Jul, 2018 Viral upper respiratory illn ess J06.9 and Acute non-recurrent frontal sinusitis J01.10 [place] [address] [facility] [id number] [address] [place] [address] Jul, Congestion of nasal sinus R0 9.81 [facility] [address] [id number] [address] [place] [address] Jul, Neuroforaminal stenosis of s pine M99.89 and Essential hypertension I10 [facility] [address] [id number] [address] [place] [address] May, Neuroforaminal stenosis of s pine M99.89 [facility] [address] [id number] [address] [place] [address] May, [facility] [address] [id number] [address] [place] [address] May, Congestion of nasal sinus R0 9.81 [facility] [address] [id number] [address] [place] [address] May, [facility] [address] [id number] [address] [place] [address] Apr, Neuroforaminal stenosis of s pine M99.89 [facility] [address] [id number] [address] [place] [address] Apr, Neuroforaminal stenosis of s pine M99.89 and Chronic pain due to trauma G89.21 [facility] [address] [id number] [address] [place] [address] Mar, UTI (urinary tract infection ) N39.0 [facility] [address] [id number] [address] [place] [address] Mar, Vertigo R42 [facility] [address] [id number] [address] [place] [address] Mar, Neuroforaminal stenosis of s pine M99.89 [facility] [address] [id number] [address] [place] [address] Feb, Extensor tendon disruption M 67.89 [facility] [address] [id number] [address] [place] [address] Feb, Neuroforaminal stenosis of s pine M99.89 and High risk medication use Z79.899 [facility] [address] [id number] [address] [place] [address] Jan, Hypokalemia E87.6 [facility] [address] [id number] [address] [place] [address] Jan, Flank pain R10.9 and Acute r ight-sided low back pain without sciatica M54.5 [facility] [address] [id number] [address] [place] [address] Jan, Hypokalemia E87.6 [place] [address] [facility] [id number] [address] [place] [address] Jan, [place] [address] [facility] [id number] [address] [place] [address] Jan, URI, acute J06.9 [place] [address] [facility] [id number] [address] [place] [address] Jan, Neuroforaminal stenosis of s jose M99.89 [place] [address] [facility] [id number] [address] [place] [address] 13 Dec, 2017 Lateral epicondylitis, right elbow M77.11 [place] [address] [facility] [id number] [address] [place] [address] 11 Dec, 2017 Allergic rhinitis due to monica rosalina, unspecified seasonality J30.1 and Allergic conjunctivitis of both eyes H10.13 [facility] [address] [id number] [address] [place] [address] 10 Dec, 2017 Neuroforaminal stenosis of s pine M99.89 [facility] [address] [facility] [id number] [address] [place] [address] 06 Dec, 2017 Mixed hyperlipidemia E78.2 [facility] [address] [facility] [id number] [address] [place] [address] 05 Dec, 2017 Abnormal glucose R73.09 ; Ab normal renal ultrasound R93.429 ; Dysuria R30.0 ; Cystitis without hematuria N30.90 ; Hypokalemia E87.6 ; Mixed hyperlipidemia E78.2 and Hematuria, unspecified type R31.9 [place] [address] [facility] [id number] [address] [place] [address] Nov, Hypokalemia E87.6 ; Mixed hy perlipidemia E78.2 and Hematuria, unspecified type R31.9 [place] [address] [id number] [address] [place] [address] Nov, [place] [address] [id number] [address] [place] [address] Nov, Hypokalemia E87.6 [place] [address] [facility] [id number] [address] [place] [address] Nov, [place] [address] [place] [id number] [address] [place] [address] Nov, Abnormal renal ultrasound R9 3.429 [place] [address] [facility] [id number] [address] [place] [address] Nov, Abnormal renal ultrasound R9 3.429 [place] [address] [place] [id number] [place] [address] Nov, Hematuria, unspecified type R31.9 and Neuroforaminal stenosis of spine M99.89 [place] [address] [place] [id number] [place] [address] Nov, Dysuria R30.0 [place] [address] [place] [id number] [place] [address] Oct, Lateral epicondylitis, right elbow M77.11 [place] [address] [place] [id number] [place] [address] Oct, Neuroforaminal stenosis of s pine M99.89 ; Visit for TB skin test Z11.1 and Essential hypertension I10 [place] [address] [place] [id number] [place] [address] 16 Oct, 2017 [place] [address] [id number] [address] [place] [address] 12 Oct, 2017 Neuroforaminal stenosis of s pine M99.89 [place] [address] [facility] [id number] [address] [place] [address] 10 Oct, 2017 Visit for TB skin test Z11.1 [place] [address] [id number] [address] [place] [address] 05 Oct, 2017 Cystitis without hematuria N 30.90 [place] [address] [id number] [address] [place] [address] 28 Sep, 2017 Screening breast examination Z12.39 [place] [address] [facility] [id number] [address] [place] [address] 26 Sep, 2017 Dysuria R30.0 and Cystitis w ithout hematuria N30.90 [place] [address] [facility] [id number] [address] [place] [address] 14 Sep, 2017 Essential hypertension I10 a nd Neuroforaminal stenosis of spine M99.89 [place] [address] [facility] [id number] [address] [place] [address] 04 Sep, 2017 Abnormal glucose R73.09 [place] [address] [place] [id number] [place] [address] August, Lateral epicondylitis, right elbow M77.11 [place] [address] [facility] [id number] [address] [place] [address] August, Screen for STD (sexually tra nsmitted disease) Z11.3 [place] [address] [facility] [id number] [address] [place] [address] August, Neuroforaminal stenosis of s pine M99.89 ; Mixed hyperlipidemia E78.2 ; Elevated fasting glucose R73.01 ; Screening mammogram, encounter for Z12.31 and Encounter for well woman exam without gynecological exam Z00.00 [place] [address] [place] [id number] [place] [address] August, Neuroforaminal stenosis of s pine M99.89 [facility] [address] [id number] [address] [place] [address] August, Essential hypertension I10 ; Hypokalemia E87.6 and Mixed hyperlipidemia E78.2 [facility] [address] [id number] [address] [place] [address] Jul, [facility] [address] [id number] [address] [place] [address] Jul, Neuroforaminal stenosis of s jose M99.89 [facility] [address] [id number] [address] [place] [address] Jul, Lateral epicondylitis, right elbow M77.11 [facility] [address] [id number] [address] [place] [address] Jul, [facility] [address] [facility] [id number] [address] [place] [address] Jun, High ankle sprain of right l ower extremity, initial encounter S93.431A [facility] [address] [id number] [address] [place] [address] Jun, Essential hypertension I10 [facility] [address] [id number] [address] [place] [address] Jun, [facility] [address] [id number] [address] [place] [address] Jun, [facility] [address] [id number] [address] [place] [address] Jun, Neuroforaminal stenosis of s jose M99.89 [facility] [address] [facility] [id number] [address] [place] [address] Jun, Pain of right upper extremit y M79.601 and Essential hypertension I10 [facility] [address] [id number] [address] [place] [address] Jun, [place] [address] [facility] [id number] [address] [place] [address] Jun, Dysuria R30.0 ; Acute cystit is with hematuria N30.01 and Screen for STD (sexually transmitted disease) Z11.3 [place] [address] [facility] [id number] [address] [place] [address] May, Chronic pain due to trauma G 89.21 [place] [address] [facility] [id number] [address] [place] [address] May, Essential hypertension I10 [place] [id number] [place] [address] May, Neuroforaminal stenosis of s pine M99.89 [place] [address] [place] [id number] [place] [address] Apr, Allergic reaction, initial e ncounter T78.40XA [place] [address] [place] [id number] [place] [address] Apr, Low back pain, unspecified b ack pain laterality, unspecified chronicity, with sciatica presence unspecified M54.5 ; Acute cystitis with hematuria N30.01 ; Neuroforaminal stenosis of spine M99.89 ; Bilateral acute serous otitis media, recurrence not specified H65.03 ; Mixed hyperlipidemia E78.2 ; Essential hypertension I10 ; Immunization counseling Z71.89 and Encounter for immunization Z23 [place] [address] [facility] [id number] [address] [place] [address] Apr, Neck pain M54.2 [place] [address] [facility] [id number] [address] [place] [address] Mar, Neuroforaminal stenosis of s pine M99.89 [place] [address] [facility] [id number] [address] [place] [address] Mar, Pharyngitis due to other org anism J02.8 [place] [address] [place] [id number] [address] [place] [address] Feb, Neuroforaminal stenosis of s pine M99.89 [facility] [address] [id number] [address] [place] [address] 08 Feb, 2017 UTI (urinary tract infection ) N39.0 [facility] [address] [id number] [address] [place] [address] Feb, Recent urinary tract infecti on Z87.440 ; Neuroforaminal stenosis of spine M99.89 ; Neck pain M54.2 ; Chronic pain due to trauma G89.21 and Recurrent UTI N39.0 [facility] [address] [id number] [address] [place] [address] Feb, [facility] [address] [id number] [address] [place] [address] Jan, Neuroforaminal stenosis of s pine M99.89 [facility] [address] [id number] [address] [place] [address] Dec, Neuroforaminal stenosis of s pine M99.89 [facility] [address] [id number] [address] [place] [address] Dec, Acute seasonal allergic rhin itis due to pollen J30.1 [facility] [address] [id number] [address] [place] [address] Dec, [facility] [address] [id number] [address] [place] [address] Dec, Acute seasonal allergic rhin itis, unspecified trigger J30.2 ; Allergic conjunctivitis of both eyes H10.13 and Dysfunction of both eustachian tubes H69.83 [facility] [address] [id number] [address] [place] [address] 07 Dec, 2016 [facility] [address] [id number] [address] [place] [address] 06 Dec, 2016 Nevus D22.9 [facility] [address] [id number] [address] [place] [address] Nov, Chronic pain due to trauma G 89.21 and Neuroforaminal stenosis of spine M99.89 [facility] [address] [id number] [address] [place] [address] Nov, Neuroforaminal stenosis of s pine M99.89 ; Essential hypertension I10 ; Mixed hyperlipidemia E78.2 ; Hypokalemia E87.6 ; Neck pain M54.2 and Nevus D22.9 [facility] [address] [id number] [address] [place] [address] Oct, Neuroforaminal stenosis of s pine M99.89 [facility] [address] [id number] [address] [place] [address] Sep, Neuroforaminal stenosis of s pine M99.89 [place] [address] [id number] [address] [place] [address] Sep, [facility] [address] [id number] [address] [place] [address] August, [facility] [address] [id number] [address] [place] [address] August, Neck pain M54.2 and Neurofor aminal stenosis of spine M99.89 [facility] [address] [id number] [address] [place] [id number] August, Routine gynecological examin ation Z01.419 and Screening breast examination Z12.39 [facility] [address] [id number] [address] [place] [phone] Jul, [facility] [address] [id number] [address] [place] [id number] Jul, [facility] [address] [facility] [id number] [address] [place] [id number] Jul, Neuroforaminal stenosis of s pine M99.89 [facility] [address] [id number] [address] [place] [id number] Jul, [facility] [address] [id number] [address] [place] [id number] Jul, Neuroforaminal stenosis of l umbar 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 [facility] [address] [id number] [address] [place] [id number] Jul, [facility] [address] [id number] [address] [place] [id number] Jul, [facility] [address] [id number] [address] [place] [id number] Jun, Neuroforaminal stenosis of s jose M99.89 [facility] [address] [id number] [address] [place] [id number] Jun, Uterine leiomyoma, unspecifi ed location D25.9 and Allergic reaction caused by a drug, initial encounter T78.40XA [facility] [address] [id number] [address] [place] [id number] Jun, [facility] [address] [id number] [address] [place] [phone] May, UTI symptoms R39.9 and Pain of right sacroiliac joint M53.3 [facility] [address] [id number] [address] [place] [id number] May, Neuroforaminal stenosis of ayla garcia M99.89 [facility] [address] [id number] [address] [place] [id number] May, [facility] [address] [id number] [address] [place] [id number] May, Acute mucoid otitis media of left ear H65.112 and Acute non- recurrent maxillary sinusitis J01.00 [facility] [address] [id number] [address] [place] [id number] May, Acute bacterial conjunctivit is of both eyes H10.33 ; Left arm pain M79.602 and Hypokalemia E87.6 [facility] [address] [facility] [id number] [address] [place] [id number] Apr, [facility] [address] [facility] [id number] [address] [place] [phone] Apr, Neuroforaminal stenosis of s pine M99.89 ; Neck pain M54.2 ; Chronic pain due to trauma G89.21 ; Mixed hyperlipidemia E78.2 ; Essential hypertension I10 and Hypokalemia E87.6 [facility] [address] [address] [id number] [address] [place] [address] Mar, Oral candidiasis B37.0 ; Nathaniel roforaminal stenosis of spine M99.89 ; Neck pain M54.2 and Chronic pain due to trauma G89.21 [place] [address] [place] [id number] [address] [place] [address] Feb, [place] [address] [facility] [id number] [address] [place] [address] Feb, [place] [id number] N [facility] [id number] [address] [place] [address] Feb, UTI (urinary tract infection ) N39.0 [place] [id number] N [facility] [id number] [address] [place] [address] 09 Feb, 2016 Dysuria R30.0 [place] [address] [place] [id number] [address] [place] [address] Feb, Dysuria R30.0 [facility] [address] N [facility] [id number] [address] [place] [address] 02 Feb, 2016 Neuroforaminal stenosis of s pine M99.89 ; Neck pain M54.2 ; Essential hypertension I10 ; Chronic pain due to trauma G89.21 ; Dysuria R30.0 ; Abnormal MRI, shoulder R93.8 and Acute cystitis without hematuria N30.00 [facility] [address] [facility] [id number] [address] [place] [address] Jan, [facility] [address] [id number] [address] [place] [address] Jan, [facility] [address] [id number] [address] [place] [address] Jan, [facility] [address] [id number] [address] [place] [address] Jan, Abnormal MRI R93.8 [facility] [address] [id number] [address] [place] [address] 29 Dec, 2015 [facility] [address] [id number] [address] [place] [address] 15 Dec, 2015 Acute pain of left shoulder M25.512 [facility] [address] [id number] [address] [place] [address] 09 Dec, 2015 [facility] [address] [id number] [address] [place] [id number] 08 Dec, 2015 [facility] [address] [id number] [address] [place] [address] 07 Dec, 2015 Acute pain of left shoulder M25.512 [facility] [address] [id number] [address] [place] [address] Nov, [facility] [address] [id number] [address] [place] [id number] 16 Nov, 2015 Neuroforaminal stenosis of s pine M99.89 ; Neck pain M54.2 ; Abnormal mammogram R92.8 ; Essential hypertension I10 and Chronic pain due to trauma G89.21 [facility] [address] [id number] [address] [place] [address] Nov, [facility] [address] [id number] [address] [place] [address] Oct, Acute stress disorder F43.0 [facility] [address] [id number] [address] [place] [address] Oct, [facility] [address] [id number] [address] [place] [address] 14 Oct, 2015 [facility] [address] [id number] [address] [place] [id number] 05 Oct, 2015 [facility] [address] [id number] [address] [place] [address] Sep, [facility] [address] [id number] [address] [place] [address] August, [facility] [address] [id number] [address] [place] [address] Jul, Neuroforaminal stenosis of s pine M99.89 ; Neck pain M54.2 ; Abnormal mammogram R92.8 and Essential hypertension I10 [facility] [address] [id number] [address] [place] [address] Jul, [facility] [address] [id number] [address] [place] [address] Jul, [facility] [address] [id number] [address] [place] [address] Jul, Abnormal mammogram R92.8 [facility] [address] [id number] [address] [place] [address] Jul, [facility] [address] [id number] [address] [place] [address] Jul, UTI (urinary tract infection ) N39.0 [facility] [address] [id number] [address] [place] [address] Jul, Dysuria R30.0 [facility] [address] [id number] [address] [place] [address] Jun, [facility] [address] [id number] [address] [place] [address] Jun, [facility] [address] [id number] [address] [place] [address] Jun, Hypokalemia E87.6 and Hematu martina R31.9 [place] [address] [address] 28 Jun, 2015 Hypokalemia E87.6 [place] [address] [address] Jun, [place] [address] [address] Jun, Hypokalemia E87.6 [place] [address] [address] Jun, Hypokalemia E87.6 [place] [address] [address] Jun, Neuroforaminal stenosis of s pine M99.89 ; Hypokalemia E87.6 ; Neck pain M54.2 ; Essential hypertension I10 ; Mixed hyperlipidemia E78.2 and Screening breast examination Z12.39 [place] [address] [address] 08 Jun, 2015 Dysuria R30.0 ; UTI (urinary tract infection) N39.0 and Hematuria R31.9 [place] [address] [address] 26 May, 2015 [place] [address] [address] 18 May, 2015 High risk sexual behavior Z7 2.51 ; Hypokalemia E87.6 ; Neuroforaminal stenosis of spine M99.89 ; Neck pain M54.2 ; Essential hypertension I10 ; Mixed hyperlipidemia E78.2 ; STD exposure Z20.2 and Concern about STD in female without diagnosis Z71.[address] [address] 16 May, 2015 Neuroforaminal stenosis of s pine M99.89 ; Neck pain M54.2 ; Hypokalemia E87.6 ; Essential hypertension I10 and Mixed hyperlipidemia E78.2 [facility] [id number] [place] [address] 11 May, 2015 [facility] [address] [address] 08 May, 2015 High risk sexual behavior Z7 2.51 ; STD exposure Z20.2 and Concern about STD in female without diagnosis Z71.1 [place] [address] [address] May, [place] [address] [address] Apr, Neuroforaminal stenosis of s pine M99.89 ; Mixed hyperlipidemia E78.2 ; Essential hypertension I10 and Hypokalemia E87.[address] [address] Mar, [address] [address] Mar, Hypokalemia E87.[address] [address] Mar, Neuroforaminal stenosis of s pine M99.89 ; Mixed hyperlipidemia E78.2 ; Neck pain M54.2 ; Essential hypertension I10 ; Abnormal fasting glucose R73.09 ; Hypokalemia E87.6 and Constipation K59.00 [place] [address] [place] [id number] [address] [place] [address] Feb, Neuroforaminal stenosis of s pine M99.89 ; Mixed hyperlipidemia E78.2 ; Neck pain M54.2 ; Essential hypertension I10 ; Abnormal fasting glucose R73.09 ; Hypokalemia E87.6 and Constipation K59.[address] [address] Feb, Elevated fasting blood sugar R73.01 [place] [address] [address] Feb, Elevated fasting blood sugar R73.01 [facility] [address] [id number] [address] [place] [address] Feb, Hair loss L65.9 [facility] [address] [id number] [address] [place] [address] Feb, Sinusitis J32.9 ; Essential hypertension I10 and Hair loss L65.9 [place] [address] [id number] [address] [place] [address] Jan, [place] [address] [id number] [address] [place] [address] Jan, Essential hypertension I10 ; Neuroforaminal stenosis of spine M99.89 ; Neck pain M54.2 ; Mixed hyperlipidemia E78.2 and Anxiety F41.9 [place] [address] [id number] [address] [place] [address] Jan, [place] [address] [id number] [address] [place] [address] Jan, Mixed hyperlipidemia E78.2 ; Essential (primary) hypertension I10 ; Strain of muscle, fascia and tendon at neck level, subsequent encounter S16.1XXD and Tension-type headache, unspecified, not intractable G44.209 [place] [address] [id number] [address] [place] [address] Dec, Lumbar back pain 724.2 and N euroforaminal stenosis of spine 724.00 [place] [address] [id number] [address] [place] [address] Nov, [place] [address] [id number] [address] [place] [address] Nov, Lumbar back pain 724.2 and N euroforaminal stenosis of spine 724.00 [place] [address] [id number] [address] [place] [address] Nov, Edema 782.3 ; Lumbar back pa in 724.2 ; Essential hypertension, benign 401.1 ; Hyperlipemia 272.4 ; Neuroforaminal stenosis of spine 724.00 and Post-concussion headache 339.20 [facility] [address] [id number] [address] [place] [address] Nov, [facility] [address] [id number] [address] [place] [address] Nov, [facility] [address] [id number] [address] [place] [address] Oct, Essential hypertension, sheridan gn 401.1 [facility] [address] [id number] [address] [place] [address] Oct, Edema 782.3 ; Lumbar back pa in 724.2 ; Essential hypertension, benign 401.1 ; Hyperlipemia 272.4 ; Neuroforaminal stenosis of spine 724.00 and Post-concussion headache 339.20 [facility] [address] [facility] [id number] [address] [place] [address] Oct, [facility] [address] [id number] [address] [place] [address] Oct, Edema 782.3 [place] [address] [facility] [id number] [address] [place] [address] Oct, Lumbar back pain 724.2 [place] [address] [facility] [id number] [address] [place] [address] Oct, Cervicalgia 723.1 ; Lumbar b ack pain 724.2 and High risk medication use V58.69 [place] [address] [id number] [address] [place] [address] Sep, [place] [address] [facility] [id number] [address] [place] [address] Sep, Lumbar strain 847.2 [facility] [address] [facility] [id number] [address] [place] [address] August, Edema 782.3 and Eustachian t ube dysfunction 381.81 [facility] [address] [id number] [address] [place] [address] August, [facility] [address] [id number] [address] [place] [address] August, Eustachian tube dysfunction 381.81 [facility] [address] [id number] [address] [place] [address] Jul, Otalgia 388.70 and Otitis me jonathon 382.9 [facility] [address] [id number] [address] [place] [address] Jul, [facility] [address] [id number] [address] [place] [address] Jul, [facility] [address] [facility] [id number] [address] [place] [address] Jul, [facility] [address] [id number] [address] [place] [address] Jul, [facility] [address] [id number] [address] [place] [address] Jul, [facility] [address] [id number] [address] [place] [address] Jun, [facility] [address] [facility] [id number] [address] [place] [address] Jun, [facility] [address] [id number] [address] [place] [address] Jun, [facility] [address] [id number] [address] [place] [address] May, [facility] [address] [id number] [address] [place] [address] May, [facility] [address] [id number] [address] [place] [address] May, [facility] [address] [id number] [address] [place] [address] May, 2014 [facility] [address] [id number] [address] [place] [address], [place] [address] May, [facility] [address] [id number] [address] [place] [address], [place] [address] May, 2014 [facility] [address] [id number] [address] [place] [address], [place] [address] May, 2014 [facility] [address] [id number] [address] [place] [address], [place] [address] May, 2014 [facility] [address] [id number] [address] [place] [address], [place] [address] May, [facility] [address] [id number] [address] [place] [address], [place] [address] May, [facility] [address] [id number] [address] [place] [address], [place] [address] Apr, [facility] [address] [id number] [address] [place] [address], [place] [address] Apr, [facility] [address] [id number] [address] [place] [address], [place] [address] Apr, [facility] [address] [id number] [address] [place] [address], [place] [address] Apr, [facility] [address] [id number] [address] [place] [address], [place] [address] Apr, [facility] [address] [id number] [address] [place] [address], [place] [address] Apr, [facility] [address] [id number] [address] [place] [address], [place] [address] Apr, [facility] [address] [id number] [address] [place] [address], [place] [address] Apr, [facility] [address] [id number] [address] [place] [address], [place] [address] Apr, [facility] [address] [id number] [address] [place] [address], [place] [address] Apr, [facility] [address] [id number] [address] [place] [address], [place] [address] Apr, [facility] [address] [id number] [address] [place] [address], [place] [address] Apr, [facility] [address] [id number] [address] [place] [address], [place] [address] Apr, [facility] [address] [id number] [address] [place] [address], [place] [address] Apr, [facility] [address] [id number] [address] [place] [address], [place] [address] Apr, [facility] [address] [id number] [address] [place] [address], [place] [address] Mar, [facility] [address] [id number] [address] [place] [address], [place] [address] Mar, [facility] [address] [id number] [address] [place] [address], [place] [address] Mar, [facility] [address] [id number] [address] [place] [address], [place] [address] Mar, [facility] [address] [id number] [address] [place] [address], [place] [address] Feb, [facility] [address] [id number] [address] [place] [address], [place] [address] Feb, [facility] [address] [id number] [address] [place] [address], [place] [address] Feb, [facility] [address] [id number] [address] [place] [address], [place] [address] Feb, [facility] [address] [id number] [address] [place] [address], [place] [address] Jan, [facility] [address] [id number] [address] [place] [address], [place] [address] Jan, [facility] [address] [id number] [address] [place] [address], [place] [address] Jan, [facility] [address] [id number] [address] [place] [address], [place] [address] Jan, [facility] [address] [id number] [address] [place] [address], [place] [address] Jan, [facility] [address] [id number] [address] [place] [address], [place] [address] Jan, [facility] [address] [id number] [address] [place] [address], [place] [address] Jan, [facility] [address] [id number] [address] [place] [address], [place] [address] Jan, [facility] [address] [id number] [address] [place] [address], [place] [address] 29 Dec, 2013 [facility] [address] [id number] [address] [place] [address], [place] [address] 29 Dec, 2013 [facility] [address] [id number] [address] [place] [address], [place] [address] 04 Dec, 2013 [facility] [address] [id number] [address] [place] [address], [place] [address] 04 Dec, 2013 [facility] [address] [id number] [address] [place] [address], [place] [address] 14 Oct, 2013 [facility] [address] [id number] [address] [place] [address], [place] [address] Oct, [facility] [address] [id number] [address] [place] [address], [place] [address] Oct, [facility] [address] [id number] [address] [place] [address], [place] [address] Oct, [facility] [address] [id number] [address] [place] [address], [place] [address] Oct, [facility] [address] [id number] [facility] [address] Oct, [facility] [address] [id number] [address] [place] [address], [place] [address] Oct, [facility] [address] [id number] [facility] [place] [address] Oct, [facility] [address] [id number] [address] [place] [address], [place] [address] Sep, [facility] [address] [id number] [address] [place] [address], [place] [address] Sep, [facility] [address] [id number] [address] [place] [address], [place] [address] Sep, [facility] [address] [id number] [address] [place] [address], [place] [address] Sep, [facility] [address] [id number] [address] [place] [address], [place] [address] Sep, [facility] [address] [id number] [address] [place] [address], [place] [address] Sep, [facility] [address] [id number] [address] [place] [address], [place] [address] Sep, [facility] [address] [id number] [address] [place] [address], [place] [address] Sep, [facility] [address] [id number] [address] [place] [address], [place] [address] Sep, [facility] [address] [id number] [address] [place] [address], [place] [address] Sep, [facility] [address] [id number] [address] [place] [address], [place] [address] August, [facility] [address] [id number] [address] [place] [address], [place] [address] August, [facility] [address] [id number] [address] [place] [address], [place] [address] August, [facility] [address] [id number] [address] [place] [address], [place] [address] August, [facility] [address] [id number] [address] [place] [address], [place] [address] August, [facility] [address] [id number] [address] [place] [address], [place] [address] August, [facility] [address] [id number] [address] [place] [address], [place] [address] August, [facility] [address] [id number] [address] [place] [address], [place] [address] August, [facility] [address] [id number] [address] [place] [address], [place] [address] August, [facility] [address] [id number] [address] [place] [address], [place] [address] August, [facility] [address] [id number] [address] [place] [address], [place] [address] August, [facility] [address] [id number] [address] [place] [address], [place] [address] August, [facility] [address] [id number] [address] [place] [address], [place] [address] Jul, [facility] [address] [id number] [address] [place] [address], [place] [address] Jul, [facility] [address] [id number] [address] [place] [address], [place] [address] Jul, [facility] [address] [id number] [address] [place] [address], [place] [address] Jul, [facility] [address] [id number] [address] [place] [address], [place] [address] Jul, [facility] [address] [id number] [address] [place] [address], [place] [address] Jul, [facility] [address] [id number] [address] [place] [address], [place] [address] Jun, [facility] [address] [id number] [address] [place] [address], [place] [address] Jun, [facility] [address] [id number] [address] [place] [address], [place] [address] May, [facility] [address] [id number] [address] [place] [address], [place] [address] May, [facility] [address] [id number] [address] [place] [address], [place] [address] Apr, [facility] [address] [id number] [address] [place] [address], [place] [address] Apr, [facility] [address] [id number] [address] [place] [address], [place] [address] Apr, [facility] [address] [id number] [address] [place] [address], [place] [address] Apr, [facility] [address] [id number] [address] [place] [address], [place] [address] Apr, [facility] [address] [id number] [address] [place] [address], [place] [address] Apr, [facility] [address] [id number] [address] [place] [address], [place] [address] Apr, [facility] [address] [id number] [address] [place] [address], [place] [address] Apr, [facility] [address] [id number] [address] [place] [address], [place] [address] Apr, [facility] [address] [id number] [address] [place] [address], [place] [address] Apr, [facility] [address] [id number] [address] [place] [address], [place] [address] Apr, [facility] [address] [id number] [address] [place] [address], [place] [address] Apr, [facility] [address] [id number] [address] [place] [address], [place] [address] Apr, [facility] [address] [id number] [address] [place] [address], [place] [address] Mar, [facility] [address] [id number] [address] [place] [address], [place] [address] Mar, [facility] [address] [id number] [address] [place] [address], [place] [address] Mar, [facility] [address] [id number] [address] [place] [address], [place] [address] Mar, [facility] [address] [id number] [address] [place] [address], [place] [address] Feb, [facility] [address] [id number] [address] [place] [address], [place] [address] Feb, [facility] [address] [id number] [address] [place] [address], [place] [address] Feb, [facility] [address] [id number] [address] [place] [address], [place] [address] Feb, [facility] [address] [id number] [address] [place] [address], [place] [address] 14 Jan, 2013 [facility] [address] [id number] [address] [place] [address], [place] [address] 14 Jan, 2013 [facility] [address] [id number] [address] [place] [address], [place] [address] 11 Jan, 2013 [facility] [address] [id number] [address] [place] [address], [place] [address] 11 Jan, 2013 [facility] [address] [id number] [address] [place] [address], [place] [address] 10 Jan, 2013 [facility] [address] [id number] [address] [place] [address], [place] [address] 10 Jan, 2013 [facility] [address] [id number] [address] [place] [address], [place] [address] Jan, [facility] [address] [id number] [address] [place] [address], [place] [address] Jan, [facility] [address] [id number] [address] [place] [address], [place] [address] Jan, [facility] [address] [id number] [address] [place] [address], [place] [address] Dec, [facility] [address] [id number] [address] [place] [address], [place] [address] 16 Dec, 2012 [facility] [address] [id number] [address] [place] [address], [place] [address] Dec, [facility] [address] [id number] [address] [place] [address], [place] [address] Dec, [facility] [address] [id number] [address] [place] [address], [place] [address] Nov, [facility] [address] [id number] [address] [place] [address], [place] [address] Nov, [facility] [address] [id number] [address] [place] [address], [place] [address] Nov, [facility] [address] [id number] [address] [place] [address], [place] [address] Nov, [facility] [address] [id number] [address] [place] [address], [place] [address] Oct, [facility] [address] [id number] [address] [place] [address], [place] [address] Sep, [facility] [address] [id number] [address] [place] [address], [place] [address] August, [facility] [address] [id number] [address] [place] [address], [place] [address] August, [facility] [address] [id number] [address] [place] [address], [place] [address] August, [facility] [address] [id number] [address] [place] [address], [place] [address] August, [facility] [address] [id number] [address] [place] [address], [place] [address] August, [facility] [address] [id number] [address] [place] [address], [place] [address] August, [facility] [address] [id number] [address] [place] [address], [place] [address] August, [facility] [address] [id number] [address] [place] [address], [place] [address] August, [facility] [address] [id number] [address] [place] [address], [place] [address] August, [facility] [address] [id number] [address] [place] [address], [place] [address] August, [facility] [address] [id number] [address] [place] [address], [place] [address] August, [facility] [address] [id number] [address] [place] [address], [place] [address] August, [facility] [address] [id number] [address] [place] [address], [place] [address] Jul, [facility] [address] [id number] [address] [place] [address], [place] [address] Jul, [facility] [address] [id number] [address] [place] [address], [place] [address] 18 Jul, 2012 [facility] [address] [id number] [address] [place] [address], [place] [address] 15 Jul, 2012 [facility] [address] [id number] [address] [place] [address], [place] [address] Jul, [facility] [address] [id number] [address] [place] [address], [place] [address] 08 Jul, 2012 [facility] [address] [id number] [address] [place] [address], [place] [address] 04 Jul, 2012 [facility] [address] [id number] [address] [place] [address], [place] [address] Jul, [facility] [address] [id number] [address] [place] [address], [place] [address] Jul, [facility] [address] [id number] [address] [place] [address], [place] [address] Jul, [facility] [address] [id number] [address] [place] [address], [place] [address] Jul, [facility] [address] [id number] [address] [place] [address], [place] [address] Jun, [facility] [address] [id number] [address] [place] [address], [place] [address] Jun, [facility] [address] [id number] [address] [place] [address], [place] [address] Jun, [facility] [address] [id number] [address] [place] [address], [place] [address] Jun, [facility] [address] [id number] [address] [place] [address], [place] [address] May, [facility] [address] [id number] [address] [place] [address], [place] [address] May, [facility] [address] [id number] [address] [place] [address], [place] [address] May, [facility] [address] [id number] [address] [place] [address], [place] [address] May, [facility] [address] [id number] [address] [place] [address], [place] [address] May, [facility] [address] [id number] [address] [place] [address], [place] [address] May, [facility] [address] [id number] [address] [place] [address], [place] [address] Apr, [facility] [address] [id number] [address] [place] [address], [place] [address] 31 Apr, 2012 [facility] [address] [id number] [address] [place] [address], [place] [address] 30 Apr, 2012 [facility] [address] [id number] [address] [place] [address], [place] [address] 28 Apr, 2012 [facility] [address] [id number] [address] [place] [address], [place] [address] 15 Mar, 2012 [facility] [address] [id number] [address] [place] [address], [place] [address] 14 Mar, 2012 [facility] [address] [id number] [address] [place] [address], [place] [address] 14 Mar, 2012 [facility] [address] [id number] [address] [place] [address], [place] [address] Mar, [facility] [address] [id number] [address] [place] [address], [place] [address] Mar, [facility] [address] [id number] [address] [place] [address], [place] [address] 06 Mar, 2012 [facility] [address] [id number] [address] [place] [address], [place] [address] 06 Mar, 2012 [facility] [address] [id number] [address] [place] [address], [place] [address] Feb, [facility] [address] [id number] [address] [place] [address], [place] [address] Feb, [facility] [address] [id number] [address] [place] [address], [place] [address] Feb, [facility] [address] [id number] [address] [place] [address], [place] [address] Feb, [facility] [address] [id number] [address] [place] [address], [place] [address] Jan, [facility] [address] [id number] [address] [place] [address], [place] [address] Jan, [facility] [address] [id number] [address] [place] [address], [place] [address] Jan, [facility] [address] [id number] [address] [place] [address], [place] [address] Jan, [facility] [address] [id number] [address] [place] [address], [place] [address] Jan, [facility] [address] [id number] [address] [place] [address], [place] [address] Jan, [facility] [address] [id number] [address] [place] [address], [place] [address] Dec, [facility] [address] [id number] [address] [place] [address], [place] [address] Dec, [facility] [address] [id number] [address] [place] [address], [place] [address] Nov, [facility] [address] [id number] [address] [place] [address], [place] [address] Sep, [facility] [address] [id number] [address] [place] [address], [place] [address] August, [facility] [address] [id number] [address] [place] [address], [place] [address] August, [facility] [address] [id number] [address] [place] [address], [place] [address] August, [facility] [address] [id number] [address] [place] [address], [place] [address] August, [facility] [address] [id number] [address] [place] [address], [place] [address] August, [facility] [address] [id number] [address] [place] [address], [place] [address] Jun, [facility] [address] [id number] [address] [place] [address], [place] [address] Jun, [facility] [address] [id number] [address] [place] [address], [place] [address] Apr, [facility] [address] [id number] [address] [place] [address], [place] [address] Apr, [facility] [address] [id number] [address] [place] [address], [place] [address] Mar, [facility] [address] [id number] [address] [place] [address], [place] [address] Feb, [facility] [address] [id number] [address] [place] [address], [place] [address] 14 Feb, 2011 [facility] [address] [id number] [address] [place] [address], [place] [address] 14 Feb, 2011 [facility] [address] [id number] [address] [place] [address], [place] [address] 17 Jan, 2011 [facility] [address] [id number] [address] [place] [address], [place] [address] 15 Jan, 2011 [facility] [address] [id number] [address] [place] [address], [place] [address] 15 Jan, 2011 [facility] [address] [id number] [address] [place] [address], [place] [address] 14 Jan, 2011 [facility] [address] [id number] [address] [place] [address] 15 May, 2010 [facility] [address] [id number] [address] [place] [address] Mar, [facility] [address] [id number] [address] [place] [address] Oct, [facility] [address] [id number] [address] [place] [address], [place] [address] Sep, [facility] [address] [id number] [address] [place] [address], [place] [address] Mar, [facility] [address] [id number] [address] [place] [address], [place] [address] Jan, [facility] [address] [id number] [address] [place] [address] Jan, [facility] [address] [facility] [id number] [address] [place] [address] May, IMMUNIZATIONS No Known Immunizations SOCIAL HISTORY [...]
--- OUTSIDE RECORDS SUMMARY | 2019-11-23 06:14 | XMS REPORT ---
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 Name Role Phone Migration, Doctor Unavailable Unavailable PROBLEMS Type Condition ICD9-CM Code EIZ92-MS Code Onset Dates Condition S tatus SNOMED Code Problem Anxiety F41.9 Active 71096108 Problem Neck pain M54.2 Active 86366125 Problem Neuroforaminal stenosis of spine M99.89 Active 609144252000 Problem Hematuria, unspecified type R31.9 Ac tive 32752454 Problem Seasonal allergies J30.2 Active 4 01006904 Problem Abnormal glucose R73.09 Active 102 540699 Problem Rhinosinusitis J32.9 Active 22638 4004 Problem Abnormal renal ultrasound R93.429 Acti ve [id number] Problem Essential hypertension I10 Active 66137028 Problem Mixed hyperlipidemia E78.2 Active 89736566 Problem Hypokalemia E87.6 Active 36553008 Problem Chronic pain due to trauma G89.21 Act juanis [id number] ALLERGIES No Information ENCOUNTERS Encounter Location Date Diagnosis [place] [address] [facility] [id number] [address] [place] [phone] Jul, [facility] [address] [place] [id number] [address] [place] [phone] Jun, Hypokalemia E87.6 [facility] [address] [facility] [id number] [address] [place] [phone] Jun, [facility] [address] [facility] [id number] [address] [place] [phone] Jun, Neuroforaminal stenosis of s pine M99.89 [facility] [address] [place] [id number] [address] [place] [phone] Jun, Lateral epicondylitis, left elbow M77.12 and Medial epicondylitis, left elbow M77.02 [facility] [address] [id number] [address] [place] [phone] 16 Jun, 2019 Foraminal stenosis of lumbar region M48.061 ; Segmental dysfunction of thoracic region M99.02 ; Segmental dysfunction of lumbar region M99.03 and Segmental dysfunction of sacral region M99.04 [place] [address] [id number] [address] [place] [phone] May, Left elbow pain M25.522 [place] [address] [id number] [address] [place] [phone] May, [place] [address] [id number] [address] [place] [phone] May, Left elbow pain M25.522 [place] [address] [id number] [address] [place] [phone] May, Neuroforaminal stenosis of s pine M99.89 [place] [address] [facility] [id number] [address] [place] [phone] May, Rhinosinusitis J32.9 ; Left elbow pain M25.522 and Neck pain M54.2 [place] [address] [facility] [id number] [address] [place] [phone] 14 May, 2019 Lateral epicondylitis of lef t elbow M77.12 [place] [address] [facility] [id number] [address] [place] [phone] Apr, Neuroforaminal stenosis of s pine M99.89 [place] [address] [id number] [address] [place] [phone] Apr, Essential hypertension I10 a nd Mixed hyperlipidemia E78.2 [place] [address] [facility] [id number] [address] [place] [phone] Mar, Neuroforaminal stenosis of s pine M99.89 [place] [address] [facility] [id number] [address] [place] [phone] Mar, Epicondylitis, lateral, left M77.12 [facility] [address] [facility] [id number] [address] [place] [phone] Mar, [facility] [address] [facility] [id number] [address] [place] [phone] Mar, Neuroforaminal stenosis of s pine M99.89 [facility] [address] [facility] [id number] [address] [place] [phone] Feb, Neuroforaminal stenosis of s pine M99.89 ; Essential hypertension I10 ; Mixed hyperlipidemia E78.2 ; Encounter for immunization Z23 and Seasonal allergies J30.2 [facility] [address] [facility] [id number] [address] [place] [phone] Jan, Neuroforaminal stenosis of s pine M99.89 [facility] [address] [place] [id number] [address] [place] [phone] Dec, Neuroforaminal stenosis of s pine M99.89 [facility] [address] [place] [id number] [address] [place] [phone] Dec, Neuroforaminal stenosis of s pine M99.89 [facility] [address] [place] [id number] [address] [place] [phone] Nov, [facility] [address] [place] [id number] [address] [place] [phone] Nov, Neuroforaminal stenosis of s pine M99.89 [facility] [address] [place] [id number] [address] [place] [phone] Nov, Acute non-recurrent maxillar y sinusitis J01.00 [facility] [address] [facility] [id number] [address] [place] [phone] Oct, Hypokalemia E87.6 [facility] [address] [facility] [id number] [address] [place] [phone] Oct, Wasp sting, undetermined int ent, initial encounter T63.464A and Cellulitis of left lower extremity L03.116 [place] [address] [id number] [address] [place] [phone] Oct, Neuroforaminal stenosis of s pine M99.89 [place] [address] [id number] [address] [place] [phone] Sep, [place] [address] [id number] [address] [place] [phone] Sep, [place] [address] [id number] [address] [place] [phone] Sep, Routine screening for STI (s exually transmitted infection) Z11.3 [place] [address] [id number] [address] [place] [phone] 14 Sep, 2018 Routine screening for STI (s exually transmitted infection) Z11.3 ; Well woman exam with routine gynecological exam Z01.419 and Breast cancer screening Z12.39 [place] [address] [id number] [address] [place] [phone] Sep, Neuroforaminal stenosis of s pine M99.89 [place] [address] [id number] [address] [place] [phone] August, Neuroforaminal stenosis of s pine M99.89 [place] [address] [id number] [address] [place] [phone] August, Neuroforaminal stenosis of s pine M99.89 ; Chronic pain due to trauma G89.21 and Mixed hyperlipidemia E78.2 [place] [address] [id number] [address] [place] [phone] Jul, Viral upper respiratory illn ess J06.9 and Acute non-recurrent frontal sinusitis J01.10 [place] [address] [facility] [id number] [address] [place] [phone] Jul, Congestion of nasal sinus R0 9.81 [place] [address] [facility] [id number] [address] [place] [phone] Jul, Neuroforaminal stenosis of s pine M99.89 and Essential hypertension I10 [facility] [address] [id number] [address] [place] [phone] May, Neuroforaminal stenosis of s pine M99.89 [facility] [address] [id number] [address] [place] [phone] May, [facility] [address] [id number] [address] [place] [phone] May, Congestion of nasal sinus R0 9.81 [facility] [address] [id number] [address] [place] [phone] May, [facility] [address] [id number] [address] [place] [phone] Apr, Neuroforaminal stenosis of s pine M99.89 [facility] [address] [id number] [address] [place] [phone] Apr, Neuroforaminal stenosis of s pine M99.89 and Chronic pain due to trauma G89.21 [facility] [address] [id number] [address] [place] [phone] Mar, UTI (urinary tract infection ) N39.0 [facility] [address] [id number] [address] [place] [phone] Mar, Vertigo R42 [facility] [address] [id number] [address] [place] [phone] Mar, Neuroforaminal stenosis of s pine M99.89 [facility] [address] [id number] [address] [place] [phone] Feb, Extensor tendon disruption M 67.89 [facility] [address] [id number] [address] [place] [phone] Feb, Neuroforaminal stenosis of s pine M99.89 and High risk medication use Z79.899 [facility] [address] [id number] [address] [place] [phone] Jan, Hypokalemia E87.6 [place] [address] [facility] [id number] [address] [place] [phone] Jan, Flank pain R10.9 and Acute r ight-sided low back pain without sciatica M54.5 [facility] [address] [facility] [id number] [address] [place] [phone] Jan, Hypokalemia E87.6 [place] [address] [facility] [id number] [address] [place] [phone] Jan, [place] [address] [facility] [id number] [place] [phone] Jan, URI, acute J06.9 [place] [address] [facility] [id number] [address] [place] [phone] Jan, Neuroforaminal stenosis of s pine M99.89 [place] [address] [place] [id number] [address] [place] [phone] 13 Dec, 2017 Lateral epicondylitis, right elbow M77.11 [place] [address] [place] [id number] [address] [place] [phone] 11 Dec, 2017 Allergic rhinitis due to monica rosalina, unspecified seasonality J30.1 and Allergic conjunctivitis of both eyes H10.13 [place] [address] [place] [id number] [address] [place] [phone] 10 Dec, 2017 Neuroforaminal stenosis of s pine M99.89 [place] [address] [facility] [id number] [address] [place] [phone] 06 Dec, 2017 Mixed hyperlipidemia E78.2 [place] [address] [place] [id number] [place] [phone] 05 Dec, 2017 Abnormal glucose R73.09 ; Ab normal renal ultrasound R93.429 ; Dysuria R30.0 ; Cystitis without hematuria N30.90 ; Hypokalemia E87.6 ; Mixed hyperlipidemia E78.2 and Hematuria, unspecified type R31.9 [place] [address] [id number] [address] [place] [phone] Nov, Hypokalemia E87.6 ; Mixed hy perlipidemia E78.2 and Hematuria, unspecified type R31.9 [facility] [address] [id number] [address] [place] [phone] Nov, [facility] [address] [id number] [address] [place] [phone] Nov, Hypokalemia E87.6 [place] [address] [id number] [address] [place] [phone] Nov, [place] [address] [id number] [address] [place] [phone] Nov, Abnormal renal ultrasound R9 3.429 [place] [address] [id number] [address] [place] [phone] Nov, Abnormal renal ultrasound R9 3.429 [place] [address] [id number] [address] [place] [phone] Nov, Hematuria, unspecified type R31.9 and 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 [place] [address] [facility] [id number] [address] [place] [phone] Nov, Dysuria R30.0 [place] [address] [id number] [address] [place] [phone] Oct, Lateral epicondylitis, right elbow M77.11 [place] [address] [id number] [address] [place] [phone] Oct, Neuroforaminal stenosis of s pine M99.89 ; Visit for TB skin test Z11.1 and Essential hypertension I10 [place] [address] [id number] [address] [place] [phone] Oct, [place] [address] [facility] [id number] [address] [place] [phone] Oct, Neuroforaminal stenosis of s pine M99.89 [place] [address] [id number] [address] [place] [phone] 10 Oct, 2017 Visit for TB skin test Z11.1 [place] [address] [id number] [address] [place] [phone] 05 Oct, 2017 Cystitis without hematuria N 30.90 [place] [address] [id number] [address] [place] [phone] 28 Sep, 2017 Screening breast examination Z12.39 [place] [address] [id number] [address] [place] [phone] 26 Sep, 2017 Dysuria R30.0 and Cystitis w ithout hematuria N30.90 [place] [address] [id number] [address] [place] [phone] 14 Sep, 2017 Essential hypertension I10 a nd 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 [place] [address] [id number] [address] [place] [id number] 04 Sep, 2017 Abnormal glucose R73.09 [place] [address] [id number] [address] [place] [phone] August, Lateral epicondylitis, right elbow M77.11 [place] [address] [id number] [address] [place] [phone] August, Screen for STD (sexually tra nsmitted disease) Z11.3 [place] [address] [id number] [address] [place] [phone] August, Neuroforaminal stenosis of s pine M99.89 ; Mixed hyperlipidemia E78.2 ; Elevated fasting glucose R73.01 ; Screening mammogram, encounter for Z12.31 and Encounter for well woman exam without gynecological exam Z00.00 [place] [address] [id number] [address] [place] [phone] August, Neuroforaminal stenosis of s pine M99.89 [place] [address] [id number] [address] [place] [phone] August, Essential hypertension I10 ; Hypokalemia E87.6 and Mixed hyperlipidemia E78.2 [facility] [address] [id number] [address] [place] [id number] Jul, [facility] [address] [facility] [id number] [address] [place] [phone] Jul, Neuroforaminal stenosis of s pine M99.89 [facility] [address] [id number] [address] [place] [phone] Jul, Lateral epicondylitis, right elbow M77.11 [facility] [address] [facility] [id number] [address] [place] [phone] Jul, [facility] [address] [facility] [id number] [address] [place] [phone] Jun, High ankle sprain of right l ower extremity, initial encounter S93.431A [facility] [address] [id number] [address] [place] [phone] Jun, Essential hypertension I10 [facility] [address] [id number] [address] [place] [phone] Jun, [facility] [address] [id number] [address] [place] [phone] Jun, [facility] [address] [id number] [address] [place] [phone] Jun, Neuroforaminal stenosis of s jose M99.89 [facility] [address] [id number] [address] [place] [phone] Jun, Pain of right upper extremit y M79.601 and Essential hypertension I10 [facility] [address] [id number] [address] [place] [phone] Jun, [facility] [address] [facility] [id number] [address] [place] [phone] 07 Mar, 2018 Dysuria R30.0 ; Acute cystit is with hematuria N30.01 and Screen for STD (sexually transmitted disease) Z11.3 [place] [address] [place] [id number] [address] [place] [phone] May, Chronic pain due to trauma G 89.21 [place] [address] [facility] [id number] [address] [place] [phone] May, Essential hypertension I10 [place] [address] [facility] [id number] [address] [place] [phone] May, Neuroforaminal stenosis of s pine M99.89 [place] [address] [id number] Apr, Allergic reaction, initial e ncounter T78.40XA [place] [address] [place] [id number] [place] [phone] Apr, Low back pain, unspecified b ack pain laterality, unspecified chronicity, with sciatica presence unspecified M54.5 ; Acute cystitis with hematuria N30.01 ; Neuroforaminal stenosis of spine M99.89 ; Bilateral acute serous otitis media, recurrence not specified H65.03 ; Mixed hyperlipidemia E78.2 ; Essential hypertension I10 ; Immunization counseling Z71.89 and Encounter for immunization Z23 [place] [address] [place] [id number] [address] [place] [phone] Apr, Neck pain M54.2 [place] [address] [place] [id number] [address] [place] [phone] Mar, Neuroforaminal stenosis of s pine M99.89 [place] [address] [place] [id number] [address] [place] [phone] Mar, Pharyngitis due to other org anism J02.8 [place] [address] [facility] [id number] [address] [place] [phone] Feb, Neuroforaminal stenosis of s pine M99.89 [place] [address] [place] [id number] [address] [place] [phone] 08 Feb, 2017 UTI (urinary tract infection ) N39.0 [facility] [address] [id number] [address] [place] [phone] 07 Feb, 2017 Recent urinary tract infecti on Z87.440 ; Neuroforaminal stenosis of spine M99.89 ; Neck pain M54.2 ; Chronic pain due to trauma G89.21 and Recurrent UTI N39.0 [facility] [address] [id number] [address] [place] [phone] Feb, [facility] [address] [id number] [address] [place] [phone] Jan, Neuroforaminal stenosis of s pine M99.89 [facility] [address] [id number] [address] [place] [phone] Dec, Neuroforaminal stenosis of s pine M99.89 [facility] [address] [id number] [address] [place] [phone] Dec, Acute seasonal allergic rhin itis due to pollen J30.1 [facility] [address] [id number] [address] [place] [phone] 08 Dec, 2016 [facility] [address] [id number] [address] [place] [phone] Dec, Acute seasonal allergic rhin itis, unspecified trigger J30.2 ; Allergic conjunctivitis of both eyes H10.13 and Dysfunction of both eustachian tubes H69.83 [facility] [address] [id number] [address] [place] [id number] Dec, [facility] [address] [id number] [address] [place] [phone] Dec, Nevus D22.9 [facility] [address] [id number] [address] [place] [phone] Nov, Chronic pain due to trauma G 89.21 and 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 [place] [address] [id number] [address] [place] [phone] Nov, Neuroforaminal stenosis of s pine M99.89 ; Essential hypertension I10 ; Mixed hyperlipidemia E78.2 ; Hypokalemia E87.6 ; Neck pain M54.2 and Nevus D22.9 [facility] [address] [id number] [address] [place] [phone] Oct, Neuroforaminal stenosis of s pine M99.89 [facility] [address] [id number] [address] [place] [phone] Sep, Neuroforaminal stenosis of s pine M99.89 [facility] [address] [id number] [address] [place] [phone] Sep, [facility] [address] [id number] [address] [place] [phone] August, [facility] [address] [id number] [address] [place] [phone] August, Neck pain M54.2 and Neurofor aminal stenosis of spine M99.89 [facility] [address] [id number] [address] [place] [phone] August, Routine gynecological examin ation Z01.419 and Screening breast examination Z12.39 [facility] [address] [id number] [address] [place] [phone] Jul, [facility] [address] [id number] [address] [place] [phone] Jul, [facility] [address] [id number] [address] [place] [phone] Jul, Neuroforaminal stenosis of s pine M99.89 [facility] [address] [id number] [address] [place] [phone] Jul, [facility] [address] [id number] [address] [place] [phone] Jul, Neuroforaminal stenosis of l umbar 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 [facility] [address] [id number] [address] [place] [phone] Jul, [facility] [address] [id number] [address] [place] [phone] Jul, [facility] [address] [id number] [address] [place] [phone] Jun, Neuroforaminal stenosis of ayla garcia M99.89 [facility] [address] [id number] [address] [place] [phone] Jun, Uterine leiomyoma, unspecifi ed location D25.9 and Allergic reaction caused by a drug, initial encounter T78.40XA [facility] [address] [facility] [id number] [address] [place] [phone] Jun, [facility] [address] [facility] [id number] [address] [place] [phone] May, UTI symptoms R39.9 and Pain of right sacroiliac joint M53.3 [place] [address] [facility] [id number] [address] [place] [phone] May, Neuroforaminal stenosis of ayla garcia M99.89 [facility] [address] [facility] [id number] [address] [place] [phone] May, [facility] [address] [facility] [id number] [address] [place] [phone] May, Acute mucoid otitis media of left ear H65.112 and Acute non- recurrent maxillary sinusitis J01.00 [place] [id number] [facility] [id number] [address] [place] [phone] May, Acute bacterial conjunctivit is of both eyes H10.33 ; Left arm pain M79.602 and Hypokalemia E87.6 [facility] [address] [facility] [id number] [address] [place] [phone] Apr, [place] [address] [id number] [address] [place] [phone] Apr, Neuroforaminal stenosis of s pine M99.89 ; Neck pain M54.2 ; Chronic pain due to trauma G89.21 ; Mixed hyperlipidemia E78.2 ; Essential hypertension I10 and Hypokalemia E87.6 [facility] [address] [address] [id number] [address] [place] [phone] Mar, Oral candidiasis B37.0 ; Nathaniel roforaminal stenosis of spine M99.89 ; Neck pain M54.2 and Chronic pain due to trauma G89.21 [facility] [address] [id number] [address] [place] [phone] Feb, [facility] [address] [id number] [address] [place] [phone] Feb, [facility] [address] [facility] [id number] [address] [place] [phone] Feb, UTI (urinary tract infection ) N39.0 [facility] [address] [id number] [address] [place] [phone] Feb, Dysuria R30.0 [facility] [address] [facility] [id number] [address] [place] [phone] Feb, Dysuria R30.0 [facility] [address] [id number] [address] [place] [id number] Feb, Neuroforaminal stenosis of s pine M99.89 ; Neck pain M54.2 ; Essential hypertension I10 ; Chronic pain due to trauma G89.21 ; Dysuria R30.0 ; Abnormal MRI, shoulder R93.8 and Acute cystitis without hematuria N30.00 [facility] [address] [id number] [address] [place] [id number] Jan, [facility] [address] [id number] [address] [place] [phone] Jan, [facility] [address] [id number] [address] [place] [phone] Jan, [facility] [address] [id number] [address] [place] [phone] Jan, Abnormal MRI R93.8 [facility] [address] [id number] [address] [place] [phone] 29 Dec, 2015 [facility] [address] [id number] [address] [place] [id number] 15 Dec, 2015 Acute pain of left shoulder M25.512 [facility] [address] [id number] [address] [place] [id number] 09 Dec, 2015 [facility] [address] [id number] [address] [place] [id number] 08 Dec, 2015 [facility] [address] [id number] [address] [place] [id number] 07 Dec, 2015 Acute pain of left shoulder M25.512 [facility] [address] [id number] [address] [place] [phone] Nov, [facility] [address] [id number] [address] [place] [phone] Nov, Neuroforaminal stenosis of s pine M99.89 ; Neck pain M54.2 ; Abnormal mammogram R92.8 ; Essential hypertension I10 and Chronic pain due to trauma G89.21 [facility] [address] [id number] [address] [place] [id number] Nov, [facility] [address] [id number] [address] [place] [phone] Oct, Acute stress disorder F43.0 [facility] [address] [id number] [address] [place] [phone] Oct, [facility] [address] [id number] [address] [place] [phone] Oct, [facility] [address] [id number] [address] [place] [phone] Oct, [facility] [address] [id number] [address] [place] [phone] Sep, [facility] [address] [id number] [address] [place] [phone] August, [facility] [address] [id number] [address] [place] [phone] Jul, Neuroforaminal stenosis of s pine M99.89 ; Neck pain M54.2 ; Abnormal mammogram R92.8 and Essential hypertension I10 [facility] [address] [id number] [address] [place] [phone] Jul, [facility] [address] [id number] [address] [place] [phone] Jul, [facility] [address] [id number] [address] [place] [phone] Jul, Abnormal mammogram R92.8 [facility] [address] [id number] [address] [place] [phone] Jul, [facility] [address] [id number] [address] [place] [phone] Jul, UTI (urinary tract infection ) N39.0 [facility] [address] [id number] [address] [place] [phone] Jul, Dysuria R30.0 [facility] [address] [id number] [address] [place] [id number] Jun, [facility] [address] [id number] [address] [place] [phone] Jun, [facility] [address] [id number] [address] [place] [phone] Jun, Hypokalemia E87.6 and Hematu martina R31.9 [facility] [address] [id number] [address] [place] [phone] Jun, Hypokalemia E87.6 [place] [address] [place] [id number] [address] [place] [phone] Jun, [facility] [address] [id number] Jun, Hypokalemia E87.6 [facility] [address] [address] Jun, Hypokalemia E87.6 [facility] [address] [id number] 15 Jun, 2015 Neuroforaminal stenosis of s pine M99.89 ; Hypokalemia E87.6 ; Neck pain M54.2 ; Essential hypertension I10 ; Mixed hyperlipidemia E78.2 and Screening breast examination Z12.39 [facility] [address] [phone] 08 Jun, 2015 Dysuria R30.0 ; UTI (urinary tract infection) N39.0 and Hematuria R31.9 [facility] [place] [address] [id number] May, [facility] [place] [address] [id number] 18 May, 2015 High risk sexual behavior Z7 2.51 ; Hypokalemia E87.6 ; Neuroforaminal stenosis of spine M99.89 ; Neck pain M54.2 ; Essential hypertension I10 ; Mixed hyperlipidemia E78.2 ; STD exposure Z20.2 and Concern about STD in female without diagnosis Z71.1 [facility] [address] [place] [id number] [address] [place] [id number] 16 May, 2015 Neuroforaminal stenosis of s pine M99.89 ; Neck pain M54.2 ; Hypokalemia E87.6 ; Essential hypertension I10 and Mixed hyperlipidemia E78.2 [place] [address] [place] [id number] [address] [place] [phone] May, [facility] [address] [id number] 08 May, 2015 High risk sexual behavior Z7 2.51 ; STD exposure Z20.2 and Concern about STD in female without diagnosis Z71.1 [facility] [address] [place] [id number] [address] [place] [phone] 05 May, 2015 [facility] [address] [address] Apr, Neuroforaminal stenosis of ayla garcia M99.89 ; Mixed hyperlipidemia E78.2 ; Essential hypertension I10 and Hypokalemia E87.6 [place] [address] [address] Mar, [facility] [place] [address] [address] Mar, Hypokalemia E87.6 [facility] [address] [address] Mar, Neuroforaminal stenosis of s jose M99.89 ; Mixed hyperlipidemia E78.2 ; Neck pain M54.2 ; Essential hypertension I10 ; Abnormal fasting glucose R73.09 ; Hypokalemia E87.6 and Constipation K59.00 [place] [address] [place] [id number] [address] [place] [phone] Feb, Neuroforaminal stenosis of s jose M99.89 ; Mixed hyperlipidemia E78.2 ; Neck pain M54.2 ; Essential hypertension I10 ; Abnormal fasting glucose R73.09 ; Hypokalemia E87.6 and Constipation K59.00 [place] [address] [place] [id number] [address] [place] [phone] Feb, Elevated fasting blood sugar R73.01 [place] [address] [address] Feb, Elevated fasting blood sugar R73.01 [place] [address] [id number] Feb, Hair loss L65.9 [facility] [address] [facility] [id number] [address] [place] [phone] Feb, Sinusitis J32.9 ; Essential hypertension I10 and Hair loss L65.9 [facility] [address] [id number] [address] [place] [phone] Jan, [facility] [address] [facility] [id number] [address] [place] [phone] Jan, Essential hypertension I10 ; Neuroforaminal stenosis of spine M99.89 ; Neck pain M54.2 ; Mixed hyperlipidemia E78.2 and Anxiety F41.9 [facility] [address] [facility] [id number] [address] [place] [phone] Jan, [place] [address] [place] [id number] [address] [place] [phone] Jan, Mixed hyperlipidemia E78.2 ; Essential (primary) hypertension I10 ; Strain of muscle, fascia and tendon at neck level, subsequent encounter S16.1XXD and Tension-type headache, unspecified, not intractable G44.209 [place] [id number] [facility] [id number] [address] [place] [phone] Dec, Lumbar back pain 724.2 and N euroforaminal stenosis of spine 724.00 [place] [address] [place] [id number] [address] [place] [phone] Nov, [place] [address] [facility] [id number] [address] [place] [phone] Nov, Lumbar back pain 724.2 and N euroforaminal stenosis of spine 724.00 [place] [address] [place] [id number] [address] [place] [phone] Nov, Edema 782.3 ; Lumbar back pa in 724.2 ; Essential hypertension, benign 401.1 ; Hyperlipemia 272.4 ; Neuroforaminal stenosis of spine 724.00 and Post-concussion headache 339.20 [place] [address] [facility] [id number] [address] [place] [phone] Nov, [facility] [address] [id number] [address] [place] [phone] Nov, [facility] [address] [id number] [address] [place] [phone] Oct, Essential hypertension, sher[place] gn 401.1 [facility] [address] [id number] [address] [place] [phone] Oct, Edema 782.3 ; Lumbar back pa in 724.2 ; Essential hypertension, benign 401.1 ; Hyperlipemia 272.4 ; Neuroforaminal stenosis of 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.00 and Post-concussion headache 339.20 [facility] [address] [id number] [address] [place] [phone] Oct, [place] [address] [facility] [id number] [address] [place] [phone] Oct, Edema 782.3 [facility] [address] [id number] [address] [place] [phone] Oct, Lumbar back pain 724.2 [place] [address] [facility] [id number] [address] [place] [phone] Oct, Cervicalgia 723.1 ; Lumbar b ack pain 724.2 and High risk medication use V58.69 [place] [address] [facility] [id number] [address] [place] [phone] Sep, [facility] [address] [id number] [address] [place] [phone] Sep, Lumbar strain 847.2 [place] [address] [facility] [id number] [address] [place] [phone] August, Edema 782.3 and Eustachian t ube dysfunction 381.81 [facility] [address] [facility] [id number] [address] [place] [phone] August, [place] [address] [id number] [address] [place] [phone] August, Eustachian tube dysfunction 381.81 [facility] [address] [id number] [address] [place] [phone] Jul, Otalgia 388.70 and Otitis me jonathon 382.9 [facility] [address] [id number] [address] [place] [id number] Jul, [facility] [address] [id number] [address] [place] [phone] Jul, [facility] [address] [id number] [address] [place] [phone] Jul, [facility] [address] [id number] [address] [place] [phone] Jul, [facility] [address] [id number] [address] [place] [phone] Jul, [facility] [address] [id number] [address] [place] [phone] Jun, [facility] [address] [id number] [address] [place] [phone] Jun, [facility] [address] [id number] [address] [place] [phone] Jun, [facility] [address] [id number] [address] [place] [phone] May, [facility] [address] [id number] [address] [place] [phone] May, [facility] [address] [id number] [address] [place] [phone] May, [facility] [address] [id number] [address] [place] [phone] May, [facility] [address] [id number] [address] [place] [phone] May, [facility] [address] [id number] [address] [place] [address], [place] [address] May, [facility] [address] [id number] [address] [place] [address], [place] [address] May, [facility] [address] [id number] [address] [place] [address], [place] [address] May, [facility] [address] [id number] [address] [place] [address], [place] [address] May, [facility] [address] [id number] [address] [place] [address], [place] [address] May, [facility] [address] [id number] [address] [place] [address], [place] [address] Apr, [facility] [address] [id number] [address] [place] [address], [place] [address] Apr, [facility] [address] [id number] [address] [place] [address], [place] [address] Apr, [facility] [address] [id number] [address] [place] [address], [place] [address] Apr, [facility] [address] [id number] [address] [place] [address], [place] [address] Apr, [facility] [address] [id number] [address] [place] [address], [place] [address] Apr, [facility] [address] [id number] [address] [place] [address], [place] [address] Apr, [facility] [address] [id number] [address] [place] [address], [place] [address] Apr, [facility] [address] [id number] [address] [place] [address], [place] [address] Apr, [facility] [address] [id number] [address] [place] [address], [place] [address] Apr, [facility] [address] [id number] [address] [place] [address], [place] [address] Apr, [facility] [address] [id number] [address] [place] [address], [place] [address] Apr, [facility] [address] [id number] [address] [place] [address], [place] [address] Apr, [facility] [address] [id number] [address] [place] [address], [place] [address] Apr, [facility] [address] [id number] [address] [place] [address], [place] [address] Apr, [facility] [address] [id number] [address] [place] [address], [place] [address] Mar, [facility] [address] [id number] [address] [place] [address], [place] [address] Mar, [facility] [address] [id number] [address] [place] [address], [place] [address] Mar, [facility] [address] [id number] [address] [place] [address], [place] [address] Mar, [facility] [address] [id number] [address] [place] [address], [place] [address] Feb, [facility] [address] [id number] [address] [place] [address], [place] [address] Feb, [facility] [address] [id number] [address] [place] [address], [place] [address] Feb, [facility] [address] [id number] [address] [place] [address], [place] [address] Feb, [facility] [address] [id number] [address] [place] [address], [place] [address] Jan, [facility] [address] [id number] [address] [place] [address], [place] [address] Jan, [facility] [address] [id number] [address] [place] [address], [place] [address] Jan, [facility] [address] [id number] [address] [place] [address], [place] [address] Jan, [facility] [address] [id number] [address] [place] [address], [place] [address] Jan, [facility] [address] [id number] [address] [place] [address], [place] [address] Jan, [facility] [address] [id number] [address] [place] [address], [place] [address] Jan, [facility] [address] [id number] [address] [place] [address], [place] [address] Jan, [facility] [address] [id number] [address] [place] [address], [place] [address] Dec, [facility] [address] [id number] [address] [place] [address], [place] [address] Dec, [facility] [address] [id number] [address] [place] [address], [place] [address] Dec, [facility] [address] [id number] [address] [place] [address], [place] [address] Dec, [facility] [address] [id number] [address] [place] [address], [place] [address] Oct, [facility] [address] [id number] [address] [place] [address], [place] [address] Oct, [facility] [address] [id number] [address] [place] [address], [place] [address] Oct, [facility] [address] [id number] [address] [place] [address], [place] [address] Oct, [facility] [address] [id number] [address] [place] [address], [place] [address] Oct, [facility] [address] [id number] [address] [place] [address], [place] [address] Oct, 2013 [facility] [address] [id number] [address] [place] [address], [place] [address] Oct, [facility] [address] [id number] [facility] [address] Oct, [facility] [address] [id number] [address] [place] [address], [place] [address] Sep, [facility] [address] [id number] [address] [place] [address], [place] [address] Sep, [facility] [address] [id number] [address] [place] [address], [place] [address] Sep, [facility] [address] [id number] [address] [place] [address], [place] [address] Sep, [facility] [address] [id number] [address] [place] [address], [place] [address] Sep, [facility] [address] [id number] [address] [place] [address], [place] [address] Sep, [facility] [address] [id number] [address] [place] [address], [place] [address] Sep, [facility] [address] [id number] [address] [place] [address], [place] [address] Sep, [facility] [address] [id number] [address] [place] [address], [place] [address] Sep, [facility] [address] [id number] [address] [place] [address], [place] [address] Sep, [facility] [address] [id number] [address] [place] [address], [place] [address] August, [facility] [address] [id number] [address] [place] [address], [place] [address] August, [facility] [address] [id number] [address] [place] [address], [place] [address] August, [facility] [address] [id number] [address] [place] [address], [place] [address] August, [facility] [address] [id number] [facility] [address] August, [facility] [address] [id number] [address] [place] [address], [place] [address] August, [facility] [address] [id number] [address] [place] [address], [place] [address] August, [facility] [address] [id number] [address] [place] [address], [place] [address] August, [facility] [address] [id number] [address] [place] [address], [place] [address] August, [facility] [address] [id number] [address] [place] [address], [place] [address] August, [facility] [address] [id number] [address] [place] [address], [place] [address] August, [facility] [address] [id number] [address] [place] [address], [place] [address] August, [facility] [address] [id number] [address] [place] [address], [place] [address] Jul, [facility] [address] [id number] [address] [place] [address], [place] [address] Jul, [facility] [address] [id number] [address] [place] [address], [place] [address] Jul, [facility] [address] [id number] [address] [place] [address], [place] [address] Jul, [facility] [address] [id number] [address] [place] [address], [place] [address] Jul, [facility] [address] [id number] [address] [place] [address], [place] [address] Jul, [facility] [address] [id number] [address] [place] [address], [place] [address] Jun, [facility] [address] [id number] [address] [place] [address], [place] [address] Jun, [facility] [address] [id number] [address] [place] [address], [place] [address] May, [facility] [address] [id number] [address] [place] [address], [place] [address] May, [facility] [address] [id number] [address] [place] [address], [place] [address] Apr, [facility] [address] [id number] [address] [place] [address], [place] [address] Apr, [facility] [address] [id number] [address] [place] [address], [place] [address] Apr, [facility] [address] [id number] [address] [place] [address], [place] [address] Apr, [facility] [address] [id number] [address] [place] [address], [place] [address] Apr, [facility] [address] [id number] [address] [place] [address], [place] [address] Apr, [facility] [address] [id number] [address] [place] [address], [place] [address] Apr, [facility] [address] [id number] [address] [place] [address], [place] [address] Apr, [facility] [address] [id number] [address] [place] [address], [place] [address] Apr, [facility] [address] [id number] [address] [place] [address], [place] [address] Apr, [facility] [address] [id number] [address] [place] [address], [place] [address] Apr, [facility] [address] [id number] [address] [place] [address], [place] [address] Apr, [facility] [address] [id number] [address] [place] [address], [place] [address] Apr, [facility] [address] [id number] [address] [place] [address] Mar, [facility] [address] [id number] [address] [place] [address], [place] [address] Mar, [facility] [address] [id number] [address] [place] [address] Mar, [facility] [address] [id number] [address] [place] [address], [place] [address] Mar, [facility] [address] [id number] [address] [place] [address], [place] [address] Feb, [facility] [address] [id number] [address] [place] [address], [place] [address] Feb, [facility] [address] [id number] [address] [place] [address], [place] [address] Feb, [facility] [address] [id number] [address] [place] [address] Feb, [facility] [address] [id number] [address] [place] [address], [place] [address] Jan, [facility] [address] [id number] [address] [place] [address] 14 Jan, 2013 [facility] [address] [id number] [address] [place] [phone] Jan, [facility] [address] [id number] [address] [place] [address] Jan, [facility] [address] [id number] [address] [place] [address] Jan, [facility] [address] [id number] [address] [place] [address] Jan, [facility] [address] [id number] [address] [place] [phone] Jan, [facility] [address] [id number] [address] [place] [id number] 09 Jan, 2013 [facility] [address] [id number] [address] [place] [address], [place] [address] Jan, [facility] [address] [id number] [address] [place] [address], [place] [address] 26 Dec, 2012 [facility] [address] [id number] [address] [place] [address], [place] [address] 16 Dec, 2012 [facility] [address] [id number] [address] [place] [address], [place] [address] 16 Dec, 2012 [facility] [address] [id number] [address] [place] [address], [place] [address] 13 Dec, 2012 [facility] [address] [id number] [address] [place] [address], [place] [address] Nov, [facility] [address] [id number] [address] [place] [address], [place] [address] Nov, [facility] [address] [id number] [address] [place] [address], [place] [address] Nov, [facility] [address] [id number] [address] [place] [address], [place] [address] Nov, [facility] [address] [id number] [address] [place] [address], [place] [address] Oct, [facility] [address] [id number] [address] [place] [address], [place] [address] Sep, [facility] [address] [id number] [address] [place] [address], [place] [address] August, [facility] [address] [id number] [address] [place] [address], [place] [address] August, [facility] [address] [id number] [address] [place] [address], [place] [address] August, [facility] [address] [id number] [address] [place] [address], [place] [address] August, [facility] [address] [id number] [address] [place] [address], [place] [address] 15 Aug, 2012 [facility] [address] [id number] [address] [place] [address], [place] [address] August, [facility] [address] [id number] [address] [place] [address], [place] [address] August, [facility] [address] [id number] [address] [place] [address], [place] [address] August, [facility] [address] [id number] [address] [place] [address], [place] [address] August, [facility] [address] [id number] [address] [place] [address], [place] [address] August, [facility] [address] [id number] [address] [place] [address], [place] [address] August, [facility] [address] [id number] [address] [place] [address], [place] [address] August, [facility] [address] [id number] [address] [place] [address], [place] [address] Jul, [facility] [address] [id number] [address] [place] [address], [place] [address] Jul, [facility] [address] [id number] [address] [place] [address], [place] [address] 18 Jul, 2012 [facility] [address] [id number] [address] [place] [address], [place] [address] 15 Jul, 2012 [facility] [address] [id number] [address] [place] [address], [place] [address] Jul, [facility] [address] [id number] [address] [place] [address], [place] [address] Jul, [facility] [address] [id number] [address] [place] [address], [place] [address] 04 Jul, 2012 [facility] [address] [id number] [address] [place] [address], [place] [address] Jul, [facility] [address] [id number] [address] [place] [address], [place] [address] Jul, [facility] [address] [id number] [address] [place] [address], [place] [address] Jul, [facility] [address] [id number] [address] [place] [address], [place] [address] Jul, [facility] [address] [id number] [address] [place] [address], [place] [address] Jun, [facility] [address] [id number] [address] [place] [address], [place] [address] Jun, [facility] [address] [id number] [address] [place] [address], [place] [address] Jun, [facility] [address] [id number] [address] [place] [address], [place] [address] Jun, [facility] [address] [id number] [address] [place] [address], [place] [address] May, [facility] [address] [id number] [address] [place] [address], [place] [address] 14 May, 2012 [facility] [address] [id number] [address] [place] [address], [place] [address] 05 May, 2012 [facility] [address] [id number] [address] [place] [address], [place] [address] May, [facility] [address] [id number] [address] [place] [address], [place] [address] May, [facility] [address] [id number] [address] [place] [address], [place] [address] May, [facility] [address] [id number] [address] [place] [address], [place] [address] Apr, [facility] [address] [id number] [address] [place] [address], [place] [address] Apr, [facility] [address] [id number] [address] [place] [address], [place] [address] Apr, [facility] [address] [id number] [address] [place] [address], [place] [address] Apr, [facility] [address] [id number] [address] [place] [address], [place] [address] 15 Mar, 2012 [facility] [address] [id number] [address] [place] [address], [place] [address] 14 Mar, 2012 [facility] [address] [id number] [address] [place] [address], [place] [address] Mar, [facility] [address] [id number] [address] [place] [address], [place] [address] Mar, [facility] [address] [id number] [address] [place] [address], [place] [address] Mar, [facility] [address] [id number] [address] [place] [address], [place] [address] Mar, [facility] [address] [id number] [address] [place] [address], [place] [address] Mar, [facility] [address] [id number] [address] [place] [address], [place] [address] Feb, [facility] [address] [id number] [address] [place] [address], [place] [address] Feb, [facility] [address] [id number] [address] [place] [address], [place] [address] Feb, [facility] [address] [id number] [address] [place] [address], [place] [address] Feb, [facility] [address] [id number] [address] [place] [address], [place] [address] Jan, [facility] [address] [id number] [address] [place] [address], [place] [address] Jan, [facility] [address] [id number] [address] [place] [address], [place] [address] Jan, [facility] [address] [id number] [address] [place] [address] [place] [address] Jan, [facility] [address] [id number] [address] [place] [address], [place] [address] Jan, [facility] [address] [id number] [address] [place] [address], [place] [address] Jan, [facility] [address] [id number] [address] [place] [address], [place] [address] Dec, [facility] [address] [id number] [address] [place] [address], [place] [address] Dec, [facility] [address] [id number] [address] [place] [address], [place] [address] Nov, [facility] [address] [id number] [address] [place] [address], [place] [address] Sep, [facility] [address] [id number] [address] [place] [address], [place] [address] August, [facility] [address] [id number] [address] [place] [address], [place] [address] August, [facility] [address] [id number] [address] [place] [address], [place] [address] August, [facility] [address] [id number] [address] [place] [address], [place] [address] August, [facility] [address] [id number] [address] [place] [address], [place] [address] August, [facility] [address] [id number] [address] [place] [address], [place] [address] Jun, [facility] [address] [id number] [address] [place] [address], [place] [address] Jun, [facility] [address] [id number] [address] [place] [address], [place] [address] Apr, [facility] [address] [id number] [address] [place] [address], [place] [address] Apr, [facility] [address] [id number] [address] [place] [address], [place] [address] 23 Mar, 2011 [facility] [address] [id number] [address] [place] [address], [place] [address] 22 Feb, 2011 [facility] [address] [id number] [address] [place] [address], [place] [address] 14 Feb, 2011 [facility] [address] [id number] [address] [place] [address], [place] [address] 14 Feb, 2011 [facility] [address] [id number] [address] [place] [address], [place] [address] 17 Jan, 2011 [facility] [address] [id number] [address] [place] [address], [place] [address] 15 Jan, 2011 [facility] [address] [id number] [address] [place] [address], [place] [address] 15 Jan, 2011 [facility] [address] [id number] [address] [place] [address], [place] [address] 14 Jan, 2011 [facility] [address] [id number] [address] [place] [address], [place] [address] 15 May, 2010 [facility] [address] [id number] [address] [place] [address], [place] [address] 04 Mar, 2010 [facility] [address] [id number] [address] [place] [address], [place] [address] Oct, [facility] [address] [id number] [address] [place] [address], [place] [address] Sep, [facility] [address] [id number] [address] [place] [address], [place] [address] Mar, [facility] [address] [id number] [address] [place] [address], [place] [address] Jan, [facility] [address] [id number] [address] [place] [address], [place] [address] Jan, [facility] [address] [id number] [address] [place] [address] May, IMMUNIZATIONS No Known Immunizations SOCIAL HISTORY Never Assessed REASON FOR VISIT PLAN OF CARE VITAL SIGNS Blood pressure systolic 170 mmHg 2014-01-08 Blood pressure diastolic 98 mmHg 2014-01-08 MEDICATIONS Unknown Medications RESULTS No Results PROCEDURES Procedure Date Ordered Result Body Site BLOOD PRESSURE, MEASURED Jan 08, 2014 LIPID PANEL Jan 08, 2014 VENIPUNCT, ROUTINE* Jan 08, 2014 INSTRUCTIONS MEDICATIONS ADMINISTERED No Known Medications [...]
--- OUTSIDE RECORDS SUMMARY | 2019-11-23 06:14 | XMS REPORT ---
Author Author Liana Coe Doctor Organization [facility] Address Unknown Phone Unavailable Care Team Providers Care Superintendent Drivers Name Role Phone Migration, Doctor Unavailable Unavailable PROBLEMS Type Condition ICD9-CM Code [id number] Code Onset Dates Condition S tatus SNOMED Code Problem Anxiety F41.9 Active 52149125 Problem Neck pain M54.2 Active 61564047 Problem Neuroforaminal stenosis of spine M99.89 Active [id number] Problem Hematuria, unspecified type R31.9 Ac tive 46379678 Problem Seasonal allergies J30.2 Active 4 61197494 Problem Abnormal glucose R73.09 Active 102 692754 Problem Rhinosinusitis J32.9 Active 14503 4004 Problem Abnormal renal ultrasound R93.429 Acti ve [id number] Problem Essential hypertension I10 Active 67344666 Problem Mixed hyperlipidemia E78.2 Active 43109843 Problem Hypokalemia E87.6 Active 55162841 Problem Chronic pain due to trauma G89.21 Act juanis [id number] ALLERGIES No Information ENCOUNTERS Encounter Location Date Diagnosis [place] [address] [facility] [id number] [address] [place] [address] Jul, [facility] [address] [facility] [id number] [address] [place] [address] Jun, Hypokalemia E87.6 [facility] [address] [facility] [id number] [address] [place] [address] Jun, [facility] [address] [facility] [id number] [address] [place] [address] Jun, Neuroforaminal stenosis of s pine M99.89 [facility] [address] [place] [id number] [address] [place] [address] Jun, Lateral epicondylitis, left elbow M77.12 and Medial epicondylitis, left elbow M77.02 [facility] [address] [id number] [address] [place] [address] 16 Jun, 2019 Foraminal stenosis of lumbar region M48.061 ; Segmental dysfunction of thoracic region M99.02 ; Segmental dysfunction of lumbar region M99.03 and Segmental dysfunction of sacral region M99.04 [place] [address] [id number] [address] [place] [address] May, Left elbow pain M25.522 [place] [address] [id number] [address] [place] [address] May, [place] [address] [id number] [address] [place] [address] May, Left elbow pain M25.522 [place] [address] [id number] [address] [place] [address] May, Neuroforaminal stenosis of s pine M99.89 [place] [address] [facility] [id number] [address] [place] [address] May, Rhinosinusitis J32.9 ; Left elbow pain M25.522 and Neck pain M54.2 [place] [address] [facility] [id number] [address] [place] [address] 14 May, 2019 Lateral epicondylitis of lef t elbow M77.12 [place] [address] [facility] [id number] [address] [place] [address] Apr, Neuroforaminal stenosis of s pine M99.89 [place] [address] [id number] [address] [place] [address] Apr, Essential hypertension I10 a nd Mixed hyperlipidemia E78.2 [place] [address] [facility] [id number] [address] [place] [address] Mar, Neuroforaminal stenosis of s pine M99.89 [place] [address] [facility] [id number] [address] [place] [address] Mar, Epicondylitis, lateral, left M77.12 [facility] [address] [facility] [id number] [address] [place] [address] Mar, [facility] [address] [facility] [id number] [address] [place] [address] Mar, Neuroforaminal stenosis of s pine M99.89 [facility] [address] [facility] [id number] [address] [place] [address] Feb, Neuroforaminal stenosis of s pine M99.89 ; Essential hypertension I10 ; Mixed hyperlipidemia E78.2 ; Encounter for immunization Z23 and Seasonal allergies J30.2 [facility] [address] [facility] [id number] [address] [place] [address] Jan, Neuroforaminal stenosis of s pine M99.89 [facility] [address] [place] [id number] [address] [place] [address] Dec, Neuroforaminal stenosis of s pine M99.89 [facility] [address] [place] [id number] [address] [place] [address] Dec, Neuroforaminal stenosis of s pine M99.89 [facility] [address] [place] [id number] [address] [place] [address] Nov, [facility] [address] [place] [id number] [address] [place] [address] Nov, Neuroforaminal stenosis of s pine M99.89 [facility] [address] [place] [id number] [address] [place] [address] Nov, Acute non-recurrent maxillar y sinusitis J01.00 [facility] [address] [facility] [id number] [address] [place] [address] Oct, Hypokalemia E87.6 [facility] [address] [facility] [id number] [address] [place] [address] Oct, Wasp sting, undetermined int ent, initial encounter T63.464A and Cellulitis of left lower extremity L03.116 [place] [address] [id number] [address] [place] [address] Oct, Neuroforaminal stenosis of s pine M99.89 [place] [address] [id number] [address] [place] [address] Sep, [place] [address] [id number] [address] [place] [address] Sep, [place] [address] [id number] [address] [place] [address] Sep, Routine screening for STI (s exually transmitted infection) Z11.3 [place] [address] [id number] [address] [place] [address] 14 Sep, 2018 Routine screening for STI (s exually transmitted infection) Z11.3 ; Well woman exam with routine gynecological exam Z01.419 and Breast cancer screening Z12.39 [place] [address] [id number] [address] [place] [address] Sep, Neuroforaminal stenosis of s pine M99.89 [place] [address] [id number] [address] [place] [address] August, Neuroforaminal stenosis of s pine M99.89 [place] [address] [id number] [address] [place] [address] August, Neuroforaminal stenosis of s pine M99.89 ; Chronic pain due to trauma G89.21 and Mixed hyperlipidemia E78.2 [place] [address] [id number] [address] [place] [address] Jul, Viral upper respiratory illn ess J06.9 and Acute non-recurrent frontal sinusitis J01.10 [place] [address] [facility] [id number] [address] [place] [address] Jul, Congestion of nasal sinus R0 9.81 [place] [address] [facility] [id number] [address] [place] [address] Jul, Neuroforaminal stenosis of s pine M99.89 and Essential hypertension I10 [facility] [address] [id number] [address] [place] [address] May, Neuroforaminal stenosis of s pine M99.89 [facility] [address] [id number] [address] [place] [address] May, [facility] [address] [id number] [address] [place] [address] May, Congestion of nasal sinus R0 9.81 [facility] [address] [id number] [address] [place] [address] May, [facility] [address] [id number] [address] [place] [address] Apr, Neuroforaminal stenosis of s pine M99.89 [facility] [address] [id number] [address] [place] [address] Apr, Neuroforaminal stenosis of s pine M99.89 and Chronic pain due to trauma G89.21 [facility] [address] [id number] [address] [place] [address] Mar, UTI (urinary tract infection ) N39.0 [facility] [address] [id number] [address] [place] [address] Mar, Vertigo R42 [facility] [address] [id number] [address] [place] [address] Mar, Neuroforaminal stenosis of s pine M99.89 [facility] [address] [id number] [address] [place] [address] Feb, Extensor tendon disruption M 67.89 [facility] [address] [id number] [address] [place] [address] Feb, Neuroforaminal stenosis of s pine M99.89 and High risk medication use Z79.899 [facility] [address] [id number] [address] [place] [address] Jan, Hypokalemia E87.6 [place] [address] [facility] [id number] [address] [place] [address] Jan, Flank pain R10.9 and Acute r ight-sided low back pain without sciatica M54.5 [facility] [address] [facility] [id number] [address] [place] [address] Jan, Hypokalemia E87.6 [place] [address] [facility] [id number] [address] [place] [address] Jan, [place] [address] [facility] [id number] [place] [address] Jan, URI, acute J06.9 [place] [address] [facility] [id number] [address] [place] [address] Jan, Neuroforaminal stenosis of s pine M99.89 [place] [address] [place] [id number] [address] [place] [address] 13 Dec, 2017 Lateral epicondylitis, right elbow M77.11 [place] [address] [place] [id number] [address] [place] [address] 11 Dec, 2017 Allergic rhinitis due to monica rosalina, unspecified seasonality J30.1 and Allergic conjunctivitis of both eyes H10.13 [place] [address] [place] [id number] [address] [place] [address] 10 Dec, 2017 Neuroforaminal stenosis of s pine M99.89 [place] [id number] [facility] [id number] [address] [place] [address] 06 Dec, 2017 Mixed hyperlipidemia E78.2 [place] [address] [place] [id number] [place] [address] 05 Dec, 2017 Abnormal glucose R73.09 ; Ab normal renal ultrasound R93.429 ; Dysuria R30.0 ; Cystitis without hematuria N30.90 ; Hypokalemia E87.6 ; Mixed hyperlipidemia E78.2 and Hematuria, unspecified type R31.9 [place] [address] [id number] [address] [place] [address] Nov, Hypokalemia E87.6 ; Mixed hy perlipidemia E78.2 and Hematuria, unspecified type R31.9 [facility] [address] [id number] [address] [place] [address] Nov, [facility] [address] [id number] [address] [place] [address] Nov, Hypokalemia E87.6 [place] [address] [id number] [address] [place] [address] Nov, [place] [address] [id number] [address] [place] [address] Nov, Abnormal renal ultrasound R9 3.429 [place] [address] [id number] [address] [place] [address] Nov, Abnormal renal ultrasound R9 3.429 [place] [address] [id number] [address] [place] [address] Nov, Hematuria, unspecified type R31.9 and 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 [place] [address] [facility] [id number] [address] [place] [address] Nov, Dysuria R30.0 [place] [address] [id number] [address] [place] [address] Oct, Lateral epicondylitis, right elbow M77.11 [place] [address] [id number] [address] [place] [address] Oct, Neuroforaminal stenosis of s pine M99.89 ; Visit for TB skin test Z11.1 and Essential hypertension I10 [place] [address] [id number] [address] [place] [address] Oct, [place] [address] [facility] [id number] [address] [place] [address] Oct, Neuroforaminal stenosis of s pine M99.89 [place] [address] [id number] [address] [place] [address] 10 Oct, 2017 Visit for TB skin test Z11.1 [place] [address] [id number] [address] [place] [address] 05 Oct, 2017 Cystitis without hematuria N 30.90 [place] [address] [id number] [address] [place] [address] 28 Sep, 2017 Screening breast examination Z12.39 [place] [address] [id number] [address] [place] [address] 26 Sep, 2017 Dysuria R30.0 and Cystitis w ithout hematuria N30.90 [place] [address] [id number] [address] [place] [address] 14 Sep, 2017 Essential hypertension I10 a nd 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 [place] [address] [id number] [address] [place] [address] 04 Sep, 2017 Abnormal glucose R73.09 [place] [address] [id number] [address] [place] [address] August, Lateral epicondylitis, right elbow M77.11 [place] [address] [id number] [address] [place] [address] August, Screen for STD (sexually tra nsmitted disease) Z11.3 [place] [address] [id number] [address] [place] [address] August, Neuroforaminal stenosis of s pine M99.89 ; Mixed hyperlipidemia E78.2 ; Elevated fasting glucose R73.01 ; Screening mammogram, encounter for Z12.31 and Encounter for well woman exam without gynecological exam Z00.00 [place] [address] [id number] [address] [place] [address] August, Neuroforaminal stenosis of s pine M99.89 [place] [address] [id number] [address] [place] [address] August, Essential hypertension I10 ; Hypokalemia E87.6 and Mixed hyperlipidemia E78.2 [facility] [address] [id number] [address] [place] [address] Jul, [facility] [address] [facility] [id number] [address] [place] [address] Jul, Neuroforaminal stenosis of s pine M99.89 [facility] [address] [id number] [address] [place] [address] Jul, Lateral epicondylitis, right elbow M77.11 [facility] [address] [facility] [id number] [address] [place] [address] Jul, [facility] [address] [facility] [id number] [address] [place] [address] Jun, High ankle sprain of right l ower extremity, initial encounter S93.431A [facility] [address] [id number] [address] [place] [address] Jun, Essential hypertension I10 [facility] [address] [id number] [address] [place] [address] Jun, [facility] [address] [id number] [address] [place] [address] Jun, [facility] [address] [id number] [address] [place] [address] Jun, Neuroforaminal stenosis of s jose M99.89 [facility] [address] [id number] [address] [place] [address] Jun, Pain of right upper extremit y M79.601 and Essential hypertension I10 [facility] [address] [id number] [address] [place] [address] Jun, [facility] [address] [facility] [id number] [address] [place] [address] 07 Mar, 2018 Dysuria R30.0 ; Acute cystit is with hematuria N30.01 and Screen for STD (sexually transmitted disease) Z11.3 [place] [address] [place] [id number] [address] [place] [address] May, Chronic pain due to trauma G 89.21 [place] [address] [facility] [id number] [address] [place] [address] May, Essential hypertension I10 [place] [address] [facility] [id number] [address] [place] [address] May, Neuroforaminal stenosis of s pine M99.89 [place] [address] [address] Apr, Allergic reaction, initial e ncounter T78.40XA [place] [address] [place] [id number] [place] [address] Apr, Low back pain, unspecified b ack pain laterality, unspecified chronicity, with sciatica presence unspecified M54.5 ; Acute cystitis with hematuria N30.01 ; Neuroforaminal stenosis of spine M99.89 ; Bilateral acute serous otitis media, recurrence not specified H65.03 ; Mixed hyperlipidemia E78.2 ; Essential hypertension I10 ; Immunization counseling Z71.89 and Encounter for immunization Z23 [place] [address] [place] [id number] [address] [place] [address] Apr, Neck pain M54.2 [place] [address] [place] [id number] [address] [place] [address] Mar, Neuroforaminal stenosis of s pine M99.89 [place] [address] [place] [id number] [address] [place] [address] Mar, Pharyngitis due to other org anism J02.8 [place] [address] [facility] [id number] [address] [place] [address] Feb, Neuroforaminal stenosis of s pine M99.89 [place] [address] [place] [id number] [address] [place] [address] 08 Feb, 2017 UTI (urinary tract infection ) N39.0 [facility] [address] [id number] [address] [place] [address] 07 Feb, 2017 Recent urinary tract infecti on Z87.440 ; 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 ; Neck pain M54.2 ; Chronic pain due to trauma G89.21 and Recurrent UTI N39.0 [facility] [address] [id number] [address] [place] [address] Feb, [facility] [address] [id number] [address] [place] [address] Jan, Neuroforaminal stenosis of s pine M99.89 [facility] [address] [id number] [address] [place] [address] Dec, Neuroforaminal stenosis of s pine M99.89 [facility] [address] [id number] [address] [place] [address] Dec, Acute seasonal allergic rhin itis due to pollen J30.1 [facility] [address] [id number] [address] [place] [address] 08 Dec, 2016 [facility] [address] [id number] [address] [place] [address] Dec, Acute seasonal allergic rhin itis, unspecified trigger J30.2 ; Allergic conjunctivitis of both eyes H10.13 and Dysfunction of both eustachian tubes H69.83 [facility] [address] [id number] [address] [place] [address] Dec, [facility] [address] [id number] [address] [place] [address] Dec, Nevus D22.9 [facility] [address] [id number] [address] [place] [address] Nov, Chronic pain due to trauma G 89.21 and 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 [place] [address] [id number] [address] [place] [address] Nov, Neuroforaminal stenosis of s pine M99.89 ; Essential hypertension I10 ; Mixed hyperlipidemia E78.2 ; Hypokalemia E87.6 ; Neck pain M54.2 and Nevus D22.9 [facility] [address] [id number] [address] [place] [address] Oct, Neuroforaminal stenosis of s pine M99.89 [facility] [address] [id number] [address] [place] [address] Sep, Neuroforaminal stenosis of s pine M99.89 [facility] [address] [id number] [address] [place] [address] Sep, [facility] [address] [id number] [address] [place] [address] August, [facility] [address] [id number] [address] [place] [address] August, Neck pain M54.2 and Neurofor aminal stenosis of spine M99.89 [facility] [address] [id number] [address] [place] [address] August, Routine gynecological examin ation Z01.419 and Screening breast examination Z12.39 [facility] [address] [id number] [address] [place] [address] Jul, [facility] [address] [id number] [address] [place] [address] Jul, [facility] [address] [id number] [address] [place] [address] Jul, Neuroforaminal stenosis of s pine M99.89 [facility] [address] [id number] [address] [place] [address] Jul, [facility] [address] [id number] [address] [place] [address] Jul, Neuroforaminal stenosis of l umbar 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 [facility] [address] [id number] [address] [place] [address] Jul, [facility] [address] [id number] [address] [place] [address] Jul, [facility] [address] [id number] [address] [place] [address] Jun, Neuroforaminal stenosis of ayla garcia M99.89 [facility] [address] [id number] [address] [place] [address] Jun, Uterine leiomyoma, unspecifi ed location D25.9 and Allergic reaction caused by a drug, initial encounter T78.40XA [facility] [address] [facility] [id number] [address] [place] [address] Jun, [facility] [address] [facility] [id number] [address] [place] [address] May, UTI symptoms R39.9 and Pain of right sacroiliac joint M53.3 [place] [address] [facility] [id number] [address] [place] [address] May, Neuroforaminal stenosis of ayla garcia M99.89 [facility] [address] [facility] [id number] [address] [place] [address] May, [facility] [address] [facility] [id number] [address] [place] [address] May, Acute mucoid otitis media of left ear H65.112 and Acute non- recurrent maxillary sinusitis J01.00 [place] [address] [facility] [id number] [address] [place] [address] May, Acute bacterial conjunctivit is of both eyes H10.33 ; Left arm pain M79.602 and Hypokalemia E87.6 [facility] [address] [facility] [id number] [address] [place] [address] Apr, [place] [address] [id number] [address] [place] [address] Apr, Neuroforaminal stenosis of s pine M99.89 ; Neck pain M54.2 ; Chronic pain due to trauma G89.21 ; Mixed hyperlipidemia E78.2 ; Essential hypertension I10 and Hypokalemia E87.6 [facility] [address] [id number] [address] [place] [address] Mar, Oral candidiasis B37.0 ; Nathaniel roforaminal stenosis of spine M99.89 ; Neck pain M54.2 and Chronic pain due to trauma G89.21 [facility] [address] [id number] [address] [place] [id number] Feb, [facility] [address] [id number] [address] [place] [phone] Feb, [facility] [address] [facility] [id number] [address] [place] [phone] Feb, UTI (urinary tract infection ) N39.0 [facility] [address] [id number] [address] [place] [id number] Feb, Dysuria R30.0 [facility] [address] [facility] [id number] [address] [place] [phone] Feb, Dysuria R30.0 [facility] [address] [id number] [address] [place] [phone] Feb, Neuroforaminal stenosis of s pine M99.89 ; Neck pain M54.2 ; Essential hypertension I10 ; Chronic pain due to trauma G89.21 ; Dysuria R30.0 ; Abnormal MRI, shoulder R93.8 and Acute cystitis without hematuria N30.00 [facility] [address] [id number] [address] [place] [id number] Jan, [facility] [address] [id number] [address] [place] [id number] Jan, [facility] [address] [id number] [address] [place] [phone] Jan, [facility] [address] [id number] [address] [place] [id number] Jan, Abnormal MRI R93.8 [facility] [address] [id number] [address] [place] [phone] 29 Dec, 2015 [facility] [address] [id number] [address] [place] [id number] 15 Dec, 2015 Acute pain of left shoulder M25.512 [facility] [address] [id number] [address] [place] [id number] 09 Dec, 2015 [facility] [address] [id number] [address] [place] [id number] 08 Dec, 2015 [facility] [address] [id number] [address] [place] [id number] 07 Dec, 2015 Acute pain of left shoulder M25.512 [facility] [address] [id number] [address] [place] [address] Nov, [facility] [address] [id number] [address] [place] [address] Nov, Neuroforaminal stenosis of s pine M99.89 ; Neck pain M54.2 ; Abnormal mammogram R92.8 ; Essential hypertension I10 and Chronic pain due to trauma G89.21 [facility] [address] [id number] [address] [place] [address] Nov, [facility] [address] [id number] [address] [place] [address] Oct, Acute stress disorder F43.0 [facility] [address] [id number] [address] [place] [address] Oct, [facility] [address] [id number] [address] [place] [address] Oct, [facility] [address] [id number] [address] [place] [address] Oct, [facility] [address] [id number] [address] [place] [address] Sep, [facility] [address] [id number] [address] [place] [address] August, [facility] [address] [id number] [address] [place] [address] Jul, Neuroforaminal stenosis of s pine M99.89 ; Neck pain M54.2 ; Abnormal mammogram R92.8 and Essential hypertension I10 [facility] [address] [id number] [address] [place] [address] Jul, [facility] [address] [id number] [address] [place] [address] Jul, [facility] [address] [id number] [address] [place] [address] Jul, Abnormal mammogram R92.8 [facility] [address] [id number] [address] [place] [address] Jul, [facility] [address] [id number] [address] [place] [address] Jul, UTI (urinary tract infection ) N39.0 [facility] [address] [id number] [address] [place] [address] Jul, Dysuria R30.0 [facility] [address] [id number] [address] [place] [address] Jun, [facility] [address] [id number] [address] [place] [address] Jun, [facility] [address] [id number] [address] [place] [address] Jun, Hypokalemia E87.6 and Hematu martina R31.9 [facility] [address] [id number] [address] [place] [address] Jun, Hypokalemia E87.6 [place] [address] [place] [id number] [address] [place] [address] Jun, [facility] [address] [address] Jun, Hypokalemia E87.6 [facility] [address] [address] Jun, Hypokalemia E87.6 [place] [address] [id number] 15 Jun, 2015 Neuroforaminal stenosis of s pine M99.89 ; Hypokalemia E87.6 ; Neck pain M54.2 ; Essential hypertension I10 ; Mixed hyperlipidemia E78.2 and Screening breast examination Z12.39 [facility] [address] [address] 08 Jun, 2015 Dysuria R30.0 ; UTI (urinary tract infection) N39.0 and Hematuria R31.9 [facility] [address] [address] May, [facility] [address] [id number] 18 May, 2015 High risk sexual behavior Z7 2.51 ; Hypokalemia E87.6 ; Neuroforaminal stenosis of spine M99.89 ; Neck pain M54.2 ; Essential hypertension I10 ; Mixed hyperlipidemia E78.2 ; STD exposure Z20.2 and Concern about STD in female without diagnosis Z71.1 [place] [address] [place] [id number] [address] [place] [address] 16 May, 2015 Neuroforaminal stenosis of s pine M99.89 ; Neck pain M54.2 ; Hypokalemia E87.6 ; Essential hypertension I10 and Mixed hyperlipidemia E78.2 [place] [address] [place] [id number] [address] [place] [address] May, [facility] [address] [id number] 08 May, 2015 High risk sexual behavior Z7 2.51 ; STD exposure Z20.2 and Concern about STD in female without diagnosis Z71.1 [facility] [address] [place] [id number] [address] [place] [address] 05 May, 2015 [facility] [address] [address] Apr, Neuroforaminal stenosis of ayla garcia M99.89 ; Mixed hyperlipidemia E78.2 ; Essential hypertension I10 and Hypokalemia E87.6 [place] [address] [address] Mar, [place] [address] [address] Mar, Hypokalemia E87.6 [place] [address] [address] Mar, Neuroforaminal stenosis of s jose M99.89 ; Mixed hyperlipidemia E78.2 ; Neck pain M54.2 ; Essential hypertension I10 ; Abnormal fasting glucose R73.09 ; Hypokalemia E87.6 and Constipation K59.00 [place] [address] [place] [id number] [address] [place] [address] Feb, Neuroforaminal stenosis of s jose M99.89 ; Mixed hyperlipidemia E78.2 ; Neck pain M54.2 ; Essential hypertension I10 ; Abnormal fasting glucose R73.09 ; Hypokalemia E87.6 and Constipation K59.00 [place] [address] [place] [id number] [address] [place] [address] Feb, Elevated fasting blood sugar R73.01 [place] [address] [address] Feb, Elevated fasting blood sugar R73.01 [place] [address] [address] Feb, Hair loss L65.9 [facility] [address] [facility] [id number] [address] [place] [address] Feb, Sinusitis J32.9 ; Essential hypertension I10 and Hair loss L65.9 [facility] [address] [id number] [address] [place] [address] Jan, [facility] [address] [facility] [id number] [address] [place] [address] Jan, Essential hypertension I10 ; Neuroforaminal stenosis of spine M99.89 ; Neck pain M54.2 ; Mixed hyperlipidemia E78.2 and Anxiety F41.9 [place] [address] [facility] [id number] [address] [place] [address] Jan, [place] [address] [place] [id number] [address] [place] [address] Jan, Mixed hyperlipidemia E78.2 ; Essential (primary) hypertension I10 ; Strain of muscle, fascia and tendon at neck level, subsequent encounter S16.1XXD and Tension-type headache, unspecified, not intractable G44.209 [place] [id number] [facility] [id number] [address] [place] [address] Dec, Lumbar back pain 724.2 and N euroforaminal stenosis of spine 724.00 [place] [address] [place] [id number] [address] [place] [address] Nov, [place] [address] [facility] [id number] [address] [place] [address] Nov, Lumbar back pain 724.2 and N euroforaminal stenosis of spine 724.00 [place] [address] [place] [id number] [address] [place] [address] Nov, Edema 782.3 ; Lumbar back pa in 724.2 ; Essential hypertension, benign 401.1 ; Hyperlipemia 272.4 ; Neuroforaminal stenosis of spine 724.00 and Post-concussion headache 339.20 [place] [address] [facility] [id number] [address] [place] [address] Nov, [facility] [address] [id number] [address] [place] [address] Nov, [facility] [address] [id number] [address] [place] [address] Oct, Essential hypertension, sheridan gn 401.1 [facility] [address] [id number] [address] [place] [address] Oct, Edema 782.3 ; Lumbar back pa in 724.2 ; Essential hypertension, benign 401.1 ; Hyperlipemia 272.4 ; Neuroforaminal stenosis of spine 724.00 and Post-concussion headache 339.20 [facility] [address] [id number] [address] [place] [address] Oct, [place] [address] [facility] [id number] [address] [place] [address] Oct, Edema 782.3 [facility] [address] [id number] [address] [place] [address] Oct, Lumbar back pain 724.2 [place] [address] [facility] [id number] [address] [place] [address] Oct, Cervicalgia 723.1 ; Lumbar b ack pain 724.2 and High risk medication use V58.69 [place] [address] [facility] [id number] [address] [place] [address] Sep, [facility] [address] [id number] [address] [place] [address] Sep, Lumbar strain 847.2 [place] [address] [facility] [id number] [address] [place] [address] August, Edema 782.3 and Eustachian t ube dysfunction 381.81 [facility] [address] [facility] [id number] [address] [place] [address] August, [place] [address] [id number] [address] [place] [address] August, Eustachian tube dysfunction 381.81 [facility] [address] [id number] [address] [place] [address] Jul, Otalgia 388.70 and Otitis me jonathon 382.9 [facility] [address] [id number] [address] [place] [address] Jul, [facility] [address] [id number] [address] [place] [address] Jul, [facility] [address] [id number] [address] [place] [address] Jul, [facility] [address] [id number] [address] [place] [address] Jul, [facility] [address] [id number] [address] [place] [address] Jul, [facility] [address] [id number] [address] [place] [address] Jun, [facility] [address] [id number] [address] [place] [address] Jun, [facility] [address] [id number] [address] [place] [address] Jun, [facility] [address] [id number] [address] [place] [address] May, [facility] [address] [id number] [address] [place] [address] May, [facility] [address] [id number] [address] [place] [address] May, [facility] [address] [id number] [address] [place] [address] May, [facility] [address] [id number] [address] [place] [address] May, [facility] [address] [id number] [address] [place] [address], [place] [address] May, [facility] [address] [id number] [address] [place] [address], [place] [address] May, [facility] [address] [id number] [address] [place] [address], [place] [address] May, [facility] [address] [id number] [address] [place] [address], [place] [address] May, [facility] [address] [id number] [address] [place] [address], [place] [address] May, [facility] [address] [id number] [address] [place] [address], [place] [address] Apr, [facility] [address] [id number] [address] [place] [address], [place] [address] Apr, [facility] [address] [id number] [address] [place] [address], [place] [address] Apr, [facility] [address] [id number] [address] [place] [address], [place] [address] Apr, [facility] [address] [id number] [address] [place] [address], [place] [address] Apr, [facility] [address] [id number] [address] [place] [address], [place] [address] Apr, [facility] [address] [id number] [address] [place] [address], [place] [address] Apr, [facility] [address] [id number] [address] [place] [address], [place] [address] Apr, [facility] [address] [id number] [address] [place] [address], [place] [address] Apr, [facility] [address] [id number] [address] [place] [address], [place] [address] Apr, [facility] [address] [id number] [address] [place] [address], [place] [address] Apr, [facility] [address] [id number] [address] [place] [address], [place] [address] Apr, [facility] [address] [id number] [address] [place] [address], [place] [address] Apr, [facility] [address] [id number] [address] [place] [address], [place] [address] Apr, [facility] [address] [id number] [address] [place] [address], [place] [address] Apr, [facility] [address] [id number] [address] [place] [address], [place] [address] Mar, [facility] [address] [id number] [address] [place] [address], [place] [address] Mar, [facility] [address] [id number] [address] [place] [address], [place] [address] Mar, [facility] [address] [id number] [address] [place] [address], [place] [address] Mar, [facility] [address] [id number] [address] [place] [address], [place] [address] Feb, [facility] [address] [id number] [address] [place] [address], [place] [address] Feb, [facility] [address] [id number] [address] [place] [address], [place] [address] Feb, [facility] [address] [id number] [address] [place] [address], [place] [address] Feb, [facility] [address] [id number] [address] [place] [address], [place] [address] Jan, [facility] [address] [id number] [address] [place] [address], [place] [address] Jan, [facility] [address] [id number] [address] [place] [address], [place] [address] Jan, [facility] [address] [id number] [address] [place] [address], [place] [address] Jan, [facility] [address] [id number] [address] [place] [address], [place] [address] Jan, [facility] [address] [id number] [address] [place] [address], [place] [address] Jan, [facility] [address] [id number] [address] [place] [address], [place] [address] Jan, [facility] [address] [id number] [address] [place] [address], [place] [address] Jan, [facility] [address] [id number] [address] [place] [address], [place] [address] Dec, [facility] [address] [id number] [address] [place] [address], [place] [address] Dec, [facility] [address] [id number] [address] [place] [address], [place] [address] Dec, [facility] [address] [id number] [address] [place] [address], [place] [address] Dec, [facility] [address] [id number] [address] [place] [address], [place] [address] Oct, [facility] [address] [id number] [address] [place] [address], [place] [address] Oct, [facility] [address] [id number] [address] [place] [address], [place] [address] Oct, [facility] [address] [id number] [address] [place] [address], [place] [address] Oct, [facility] [address] [id number] [address] [place] [address], [place] [address] Oct, [facility] [address] [id number] [address] [place] [address], [place] [address] Oct, 2013 [facility] [address] [id number] [address] [place] [address], [place] [address] Oct, [facility] [address] [id number] [facility] [place] [address] Oct, [facility] [address] [id number] [address] [place] [address], [place] [address] Sep, [facility] [address] [id number] [address] [place] [address], [place] [address] Sep, [facility] [address] [id number] [address] [place] [address], [place] [address] Sep, [facility] [address] [id number] [address] [place] [address], [place] [address] Sep, [facility] [address] [id number] [address] [place] [address], [place] [address] Sep, [facility] [address] [id number] [address] [place] [address], [place] [address] Sep, [facility] [address] [id number] [address] [place] [address], [place] [address] Sep, [facility] [address] [id number] [address] [place] [address], [place] [address] Sep, [facility] [address] [id number] [address] [place] [address], [place] [address] Sep, [facility] [address] [id number] [address] [place] [address], [place] [address] Sep, [facility] [address] [id number] [address] [place] [address], [place] [address] August, [facility] [address] [id number] [address] [place] [address], [place] [address] August, [facility] [address] [id number] [address] [place] [address], [place] [address] August, [facility] [address] [id number] [address] [place] [address], [place] [address] August, [facility] [address] [id number] [facility] [place] [address] August, [facility] [address] [id number] [address] [place] [address], [place] [address] August, [facility] [address] [id number] [address] [place] [address], [place] [address] August, [facility] [address] [id number] [address] [place] [address], [place] [address] August, [facility] [address] [id number] [address] [place] [address], [place] [address] August, [facility] [address] [id number] [address] [place] [address], [place] [address] August, [facility] [address] [id number] [address] [place] [address], [place] [address] August, [facility] [address] [id number] [address] [place] [address], [place] [address] August, [facility] [address] [id number] [address] [place] [address], [place] [address] Jul, [facility] [address] [id number] [address] [place] [address], [place] [address] Jul, [facility] [address] [id number] [address] [place] [address], [place] [address] Jul, [facility] [address] [id number] [address] [place] [address], [place] [address] Jul, [facility] [address] [id number] [address] [place] [address], [place] [address] Jul, [facility] [address] [id number] [address] [place] [address], [place] [address] Jul, [facility] [address] [id number] [address] [place] [address], [place] [address] Jun, [facility] [address] [id number] [address] [place] [address], [place] [address] Jun, [facility] [address] [id number] [address] [place] [address], [place] [address] May, [facility] [address] [id number] [address] [place] [address], [place] [address] May, [facility] [address] [id number] [address] [place] [address], [place] [address] Apr, [facility] [address] [id number] [address] [place] [address], [place] [address] Apr, [facility] [address] [id number] [address] [place] [address], [place] [address] Apr, [facility] [address] [id number] [address] [place] [address], [place] [address] Apr, [facility] [address] [id number] [address] [place] [address], [place] [address] Apr, [facility] [address] [id number] [address] [place] [address], [place] [address] Apr, [facility] [address] [id number] [address] [place] [address], [place] [address] Apr, [facility] [address] [id number] [address] [place] [address], [place] [address] Apr, [facility] [address] [id number] [address] [place] [address], [place] [address] Apr, [facility] [address] [id number] [address] [place] [address], [place] [address] Apr, [facility] [address] [id number] [address] [place] [address], [place] [address] Apr, [facility] [address] [id number] [address] [place] [address], [place] [address] Apr, [facility] [address] [id number] [address] [place] [address], [place] [address] Apr, [facility] [address] [id number] [address] [place] [address] Mar, [facility] [address] [id number] [address] [place] [address], [place] [address] Mar, [facility] [address] [id number] [address] [place] [address] Mar, [facility] [address] [id number] [address] [place] [address], [place] [address] Mar, [facility] [address] [id number] [address] [place] [address], [place] [address] Feb, [facility] [address] [id number] [address] [place] [address], [place] [address] Feb, [facility] [address] [id number] [address] [place] [address], [place] [address] Feb, [facility] [address] [id number] [address] [place] [address] Feb, [facility] [address] [id number] [address] [place] [address], [place] [address] Jan, [facility] [address] [id number] [address] [place] [id number] 14 Jan, 2013 [facility] [address] [id number] [address] [place] [address] Jan, [facility] [address] [id number] [address] [place] [address] Jan, [facility] [address] [id number] [address] [place] [address] Jan, [facility] [address] [id number] [address] [place] [address] Jan, [facility] [address] [id number] [address] [place] [id number] Jan, [facility] [address] [id number] [address] [place] [id number] 09 Jan, 2013 [facility] [address] [id number] [address] [place] [address], [place] [address] Jan, [facility] [address] [id number] [address] [place] [address], [place] [address] 26 Dec, 2012 [facility] [address] [id number] [address] [place] [address], [place] [address] 16 Dec, 2012 [facility] [address] [id number] [address] [place] [address], [place] [address] 16 Dec, 2012 [facility] [address] [id number] [address] [place] [address], [place] [address] 13 Dec, 2012 [facility] [address] [id number] [address] [place] [address], [place] [address] Nov, [facility] [address] [id number] [address] [place] [address], [place] [address] Nov, [facility] [address] [id number] [address] [place] [address], [place] [address] Nov, [facility] [address] [id number] [address] [place] [address], [place] [address] Nov, [facility] [address] [id number] [address] [place] [address], [place] [address] Oct, [facility] [address] [id number] [address] [place] [address], [place] [address] Sep, [facility] [address] [id number] [address] [place] [address], [place] [address] August, [facility] [address] [id number] [address] [place] [address], [place] [address] August, [facility] [address] [id number] [address] [place] [address], [place] [address] August, [facility] [address] [id number] [address] [place] [address], [place] [address] August, [facility] [address] [id number] [address] [place] [address], [place] [address] 15 Aug, 2012 [facility] [address] [id number] [address] [place] [address], [place] [address] August, [facility] [address] [id number] [address] [place] [address], [place] [address] August, [facility] [address] [id number] [address] [place] [address], [place] [address] August, [facility] [address] [id number] [address] [place] [address], [place] [address] August, [facility] [address] [id number] [address] [place] [address], [place] [address] August, [facility] [address] [id number] [address] [place] [address], [place] [address] August, [facility] [place] [address] [id number] [address] [place] [address], [place] [address] August, [facility] [place] [address] [id number] [address] [place] [address], [place] [address] Jul, [facility] [place] [address] [id number] [address] [place] [address], [place] [address] Jul, [facility] [place] [address] [id number] [address] [place] [address], [place] [address] 18 Jul, 2012 [facility] [place] [address] [id number] [address] [place] [address], [place] [address] 15 Jul, 2012 [facility] [address] [id number] [address] [place] [address], [place] [address] Jul, [facility] [address] [id number] [address] [place] [address], [place] [address] Jul, [facility] [address] [id number] [address] [place] [address], [place] [address] 04 Jul, 2012 [facility] [address] [id number] [address] [place] [address], [place] [address] Jul, [facility] [address] [id number] [address] [place] [address], [place] [address] Jul, [facility] [place] [address] [id number] [address] [place] [address], [place] [address] Jul, [facility] [address] [id number] [address] [place] [address], [place] [address] Jul, [facility] [place] [address] [id number] [address] [place] [address], [place] [address] Jun, [facility] [address] [id number] [address] [place] [address], [place] [address] Jun, [facility] [place] [address] [id number] [address] [place] [address], [place] [address] Jun, [facility] [place] [address] [id number] [address] [place] [address], [place] [address] Jun, [facility] [place] [address] [id number] [address] [place] [address], [place] [address] May, [facility] [address] [id number] [address] [place] [address], [place] [address] 14 May, 2012 [facility] [place] [address] [id number] [address] [place] [address], [place] [address] 05 May, 2012 [facility] [address] [id number] [address] [place] [address], [place] [address] May, [facility] [place] [address] [id number] [address] [place] [address], [place] [address] May, [facility] [place] [address] [id number] [address] [place] [address], [place] [address] May, [facility] [address] [id number] [address] [place] [address], [place] [address] Apr, [facility] [address] [id number] [address] [place] [address], [place] [address] Apr, [facility] [address] [id number] [address] [place] [address], [place] [address] Apr, [facility] [address] [id number] [address] [place] [address], [place] [address] Apr, [facility] [address] [id number] [address] [place] [address], [place] [address] 15 Mar, 2012 [facility] [address] [id number] [address] [place] [address], [place] [address] 14 Mar, 2012 [facility] [address] [id number] [address] [place] [address], [place] [address] Mar, [facility] [address] [id number] [address] [place] [address], [place] [address] Mar, [facility] [address] [id number] [address] [place] [address], [place] [address] Mar, [facility] [address] [id number] [address] [place] [address], [place] [address] Mar, [facility] [address] [id number] [address] [place] [address], [place] [address] Mar, [facility] [address] [id number] [address] [place] [address], [place] [address] Feb, [facility] [address] [id number] [address] [place] [address], [place] [address] Feb, [facility] [address] [id number] [address] [place] [address], [place] [address] Feb, [facility] [address] [id number] [address] [place] [address], [place] [address] Feb, [facility] [address] [id number] [address] [place] [address], [place] [address] Jan, [facility] [address] [id number] [address] [place] [address], [place] [address] Jan, [facility] [address] [id number] [address] [place] [address], [place] [address] Jan, [facility] [address] [id number] [address] [place] [address] [place] [address] Jan, [facility] [address] [id number] [address] [place] [address], [place] [address] Jan, [facility] [address] [id number] [address] [place] [address], [place] [address] Jan, [facility] [address] [id number] [address] [place] [address], [place] [address] Dec, [facility] [address] [id number] [address] [place] [address], [place] [address] Dec, [facility] [address] [id number] [address] [place] [address], [place] [address] Nov, [facility] [address] [id number] [address] [place] [address], [place] [address] Sep, [facility] [address] [id number] [address] [place] [address], [place] [address] August, [facility] [address] [id number] [address] [place] [address], [place] [address] August, [facility] [address] [id number] [address] [place] [address], [place] [address] August, [facility] [address] [id number] [address] [place] [address], [place] [address] August, [facility] [address] [id number] [address] [place] [address], [place] [address] August, [facility] [address] [id number] [address] [place] [address], [place] [address] Jun, [facility] [address] [id number] [address] [place] [address], [place] [address] Jun, [facility] [address] [id number] [address] [place] [address], [place] [address] Apr, [facility] [address] [id number] [address] [place] [address], [place] [address] Apr, [facility] [address] [id number] [address] [place] [address], [place] [address] 23 Mar, 2011 [facility] [address] [id number] [address] [place] [address], [place] [address] 22 Feb, 2011 [facility] [address] [id number] [address] [place] [address], [place] [address] 14 Feb, 2011 [facility] [address] [id number] [address] [place] [address], [place] [address] 14 Feb, 2011 [facility] [address] [id number] [address] [place] [address], [place] [address] 17 Jan, 2011 [facility] [address] [id number] [address] [place] [address], [place] [address] 15 Jan, 2011 [facility] [address] [id number] [address] [place] [address], [place] [address] 15 Jan, 2011 [facility] [address] [id number] [address] [place] [address], [place] [address] 14 Jan, 2011 [facility] [address] [id number] [address] [place] [address], [place] [address] 15 May, 2010 [facility] [address] [id number] [address] [place] [address], [place] [address] 04 Mar, 2010 [facility] [address] [id number] [address] [place] [address], [place] [address] Oct, [facility] [address] [id number] [address] [place] [address], [place] [address] Sep, [facility] [address] [id number] [address] [place] [address], [place] [address] Mar, [facility] [address] [id number] [address] [place] [address], [place] [address] Jan, [facility] [address] [id number] [address] [place] [address], [place] [address] Jan, [facility] [address] [id number] [address] [place] [address] May, IMMUNIZATIONS No Known Immunizations SOCIAL HISTORY Never Assessed REASON FOR VISIT PLAN OF CARE VITAL SIGNS Height 62 in 2014-01-14 Weight 181 lbs 2014-01-14 Temperature 96.9 degrees Fahrenheit 2014-01-14 Heart Rate 80 bpm 2014-01-14 Respiratory Rate 20 2014-01-14 Blood pressure systolic 152 mmHg 2014-01-14 Blood pressure diastolic 94 mmHg 2014-01-14 MEDICATIONS Unknown Medications RESULTS No Results PROCEDURES [...]
--- OUTSIDE RECORDS SUMMARY | 2019-11-23 06:15 | XMS REPORT ---
Author Author Liana Coe Doctor Organization [facility] Address Unknown Phone Unavailable Care Team Providers Care Naval Inspector Name Role Phone Migration, Doctor Unavailable Unavailable PROBLEMS Type Condition ICD9-CM Code [id number] Code Onset Dates Condition S tatus SNOMED Code Problem Anxiety F41.9 Active 94804670 Problem Neck pain M54.2 Active 16378660 Problem Neuroforaminal stenosis of spine M99.89 Active 772718080563 Problem Hematuria, unspecified type R31.9 Ac tive 98698018 Problem Seasonal allergies J30.2 Active 4 68757415 Problem Abnormal glucose R73.09 Active 102 969160 Problem Rhinosinusitis J32.9 Active 40182 4004 Problem Abnormal renal ultrasound R93.429 Acti ve [id number] Problem Essential hypertension I10 Active 61134510 Problem Mixed hyperlipidemia E78.2 Active 19388535 Problem Hypokalemia E87.6 Active 47953224 Problem Chronic pain due to trauma G89.21 Act juanis [id number] ALLERGIES No Information ENCOUNTERS Encounter Location Date Diagnosis [place] [address] [facility] [id number] [address] [place] [phone] Jul, [facility] [address] [place] [id number] [address] [place] [phone] Jun, Hypokalemia E87.6 [facility] [address] [facility] [id number] [address] [place] [phone] Jun, [facility] [address] [facility] [id number] [address] [place] [phone] Jun, Neuroforaminal stenosis of s pine M99.89 [facility] [address] [place] [id number] [address] [place] [phone] Jun, Lateral epicondylitis, left elbow M77.12 and Medial epicondylitis, left elbow M77.02 [facility] [address] [id number] [address] [place] [id number] 16 Jun, 2019 Foraminal stenosis of lumbar region M48.061 ; Segmental dysfunction of thoracic region M99.02 ; Segmental dysfunction of lumbar region M99.03 and Segmental dysfunction of sacral region M99.04 [place] [address] [id number] [address] [place] [address] May, Left elbow pain M25.522 [place] [address] [id number] [address] [place] [address] May, [place] [address] [id number] [address] [place] [address] May, Left elbow pain M25.522 [place] [address] [id number] [address] [place] [address] May, Neuroforaminal stenosis of s pine M99.89 [place] [address] [facility] [id number] [address] [place] [address] May, Rhinosinusitis J32.9 ; Left elbow pain M25.522 and Neck pain M54.2 [place] [address] [facility] [id number] [address] [place] [phone] 14 May, 2019 Lateral epicondylitis of lef t elbow M77.12 [place] [address] [facility] [id number] [address] [place] [phone] Apr, Neuroforaminal stenosis of s pine M99.89 [place] [address] [id number] [address] [place] [phone] Apr, Essential hypertension I10 a nd Mixed hyperlipidemia E78.2 [place] [address] [facility] [id number] [address] [place] [phone] Mar, Neuroforaminal stenosis of s pine M99.89 [place] [address] [facility] [id number] [address] [place] [phone] Mar, Epicondylitis, lateral, left M77.12 [facility] [address] [facility] [id number] [address] [place] [phone] Mar, [facility] [address] [facility] [id number] [address] [place] [phone] Mar, Neuroforaminal stenosis of s pine M99.89 [facility] [address] [facility] [id number] [address] [place] [address] Feb, Neuroforaminal stenosis of s pine M99.89 ; Essential hypertension I10 ; Mixed hyperlipidemia E78.2 ; Encounter for immunization Z23 and Seasonal allergies J30.2 [facility] [address] [facility] [id number] [address] [place] [phone] Jan, Neuroforaminal stenosis of s pine M99.89 [facility] [address] [place] [id number] [address] [place] [phone] Dec, Neuroforaminal stenosis of s pine M99.89 [facility] [address] [place] [id number] [address] [place] [phone] Dec, Neuroforaminal stenosis of s pine M99.89 [facility] [address] [place] [id number] [address] [place] [phone] Nov, [facility] [address] [place] [id number] [address] [place] [phone] Nov, Neuroforaminal stenosis of s pine M99.89 [facility] [address] [place] [id number] [address] [place] [address] Nov, Acute non-recurrent maxillar y sinusitis J01.00 [facility] [address] [facility] [id number] [address] [place] [phone] Oct, Hypokalemia E87.6 [facility] [address] [facility] [id number] [address] [place] [phone] Oct, Wasp sting, undetermined int ent, initial encounter T63.464A and Cellulitis of left lower extremity L03.116 [place] [address] [id number] [address] [place] [address] Oct, Neuroforaminal stenosis of s pine M99.89 [place] [address] [id number] [address] [place] [phone] Sep, [place] [address] [id number] [address] [place] [phone] Sep, [place] [address] [id number] [address] [place] [phone] Sep, Routine screening for STI (s exually transmitted infection) Z11.3 [place] [address] [id number] [address] [place] [phone] 14 Sep, 2018 Routine screening for STI (s exually transmitted infection) Z11.3 ; Well woman exam with routine gynecological exam Z01.419 and Breast cancer screening Z12.39 [place] [address] [id number] [address] [place] [address] Sep, Neuroforaminal stenosis of s pine M99.89 [place] [address] [id number] [address] [place] [address] August, Neuroforaminal stenosis of s pine M99.89 [place] [address] [id number] [address] [place] [phone] August, Neuroforaminal stenosis of s pine M99.89 ; Chronic pain due to trauma G89.21 and Mixed hyperlipidemia E78.2 [place] [address] [id number] [address] [place] [phone] Jul, Viral upper respiratory illn ess J06.9 and Acute non-recurrent frontal sinusitis J01.10 [place] [address] [facility] [id number] [address] [place] [phone] Jul, Congestion of nasal sinus R0 9.81 [place] [address] [facility] [id number] [address] [place] [phone] Jul, Neuroforaminal stenosis of s pine M99.89 and Essential hypertension I10 [facility] [address] [id number] [address] [place] [phone] May, Neuroforaminal stenosis of s pine M99.89 [facility] [address] [id number] [address] [place] [phone] May, [facility] [address] [id number] [address] [place] [phone] May, Congestion of nasal sinus R0 9.81 [facility] [address] [id number] [address] [place] [phone] May, [facility] [address] [id number] [address] [place] [address] Apr, Neuroforaminal stenosis of s pine M99.89 [facility] [address] [id number] [address] [place] [id number] Apr, Neuroforaminal stenosis of s pine M99.89 and Chronic pain due to trauma G89.21 [facility] [address] [id number] [address] [place] [phone] Mar, UTI (urinary tract infection ) N39.0 [facility] [address] [id number] [address] [place] [phone] Mar, Vertigo R42 [facility] [address] [id number] [address] [place] [id number] Mar, Neuroforaminal stenosis of s pine M99.89 [facility] [address] [id number] [address] [place] [phone] Feb, Extensor tendon disruption M 67.89 [facility] [address] [id number] [address] [place] [phone] Feb, Neuroforaminal stenosis of s pine M99.89 and High risk medication use Z79.899 [facility] [address] [id number] [address] [place] [phone] Jan, Hypokalemia E87.6 [place] [address] [facility] [id number] [address] [place] [address] Jan, Flank pain R10.9 and Acute r ight-sided low back pain without sciatica M54.5 [facility] [address] [facility] [id number] [address] [place] [phone] Jan, Hypokalemia E87.6 [place] [address] [facility] [id number] [address] [place] [phone] Jan, [place] [address] [facility] [id number] [place] [phone] Jan, URI, acute J06.9 [place] [address] [facility] [id number] [address] [place] [address] Jan, Neuroforaminal stenosis of s pine M99.89 [place] [address] [place] [id number] [address] [place] [phone] 13 Dec, 2017 Lateral epicondylitis, right elbow M77.11 [place] [address] [place] [id number] [address] [place] [phone] 11 Dec, 2017 Allergic rhinitis due to monica rosalina, unspecified seasonality J30.1 and Allergic conjunctivitis of both eyes H10.13 [place] [address] [place] [id number] [address] [place] [address] 10 Dec, 2017 Neuroforaminal stenosis of s pine M99.89 [place] [address] [facility] [id number] [address] [place] [phone] 06 Dec, 2017 Mixed hyperlipidemia E78.2 [place] [address] [place] [id number] [place] [phone] 05 Dec, 2017 Abnormal glucose R73.09 ; Ab normal renal ultrasound R93.429 ; Dysuria R30.0 ; Cystitis without hematuria N30.90 ; Hypokalemia E87.6 ; Mixed hyperlipidemia E78.2 and Hematuria, unspecified type R31.9 [place] [address] [id number] [address] [place] [phone] Nov, Hypokalemia E87.6 ; Mixed hy perlipidemia E78.2 and Hematuria, unspecified type R31.9 [facility] [address] [id number] [address] [place] [phone] Nov, [facility] [address] [id number] [address] [place] [phone] Nov, Hypokalemia E87.6 [place] [address] [id number] [address] [place] [address] Nov, [place] [address] [id number] [address] [place] [address] Nov, Abnormal renal ultrasound R9 3.429 [place] [address] [id number] [address] [place] [phone] Nov, Abnormal renal ultrasound R9 3.429 [place] [address] [id number] [address] [place] [address] Nov, Hematuria, unspecified type R31.9 and Neuroforaminal stenosis of spine M99.89 [place] [address] [facility] [id number] [address] [place] [address] Nov, Dysuria R30.0 [place] [address] [id number] [address] [place] [address] Oct, Lateral epicondylitis, right elbow M77.11 [place] [address] [id number] [address] [place] [address] Oct, Neuroforaminal stenosis of s pine M99.89 ; Visit for TB skin test Z11.1 and Essential hypertension I10 [place] [address] [id number] [address] [place] [address] Oct, [place] [address] [facility] [id number] [address] [place] [phone] Oct, Neuroforaminal stenosis of s pine M99.89 [place] [address] [id number] [address] [place] [phone] 10 Oct, 2017 Visit for TB skin test Z11.1 [place] [address] [id number] [address] [place] [phone] 05 Oct, 2017 Cystitis without hematuria N 30.90 [place] [address] [id number] [address] [place] [phone] 28 Sep, 2017 Screening breast examination Z12.39 [place] [address] [id number] [address] [place] [phone] 26 Sep, 2017 Dysuria R30.0 and Cystitis w ithout hematuria N30.90 [place] [address] [id number] [address] [place] [address] 14 Sep, 2017 Essential hypertension I10 a nd 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 [place] [address] [id number] [address] [place] [address] 04 Sep, 2017 Abnormal glucose R73.09 [place] [address] [id number] [address] [place] [phone] August, Lateral epicondylitis, right elbow M77.11 [place] [address] [id number] [address] [place] [address] August, Screen for STD (sexually tra nsmitted disease) Z11.3 [place] [address] [id number] [address] [place] [address] August, Neuroforaminal stenosis of s pine M99.89 ; Mixed hyperlipidemia E78.2 ; Elevated fasting glucose R73.01 ; Screening mammogram, encounter for Z12.31 and Encounter for well woman exam without gynecological exam Z00.00 [place] [address] [id number] [address] [place] [phone] August, Neuroforaminal stenosis of s pine M99.89 [place] [address] [id number] [address] [place] [address] August, Essential hypertension I10 ; Hypokalemia E87.6 and Mixed hyperlipidemia E78.2 [facility] [address] [id number] [address] [place] [phone] Jul, [facility] [address] [facility] [id number] [address] [place] [address] Jul, Neuroforaminal stenosis of s pine M99.89 [facility] [address] [id number] [address] [place] [phone] Jul, Lateral epicondylitis, right elbow M77.11 [facility] [address] [facility] [id number] [address] [place] [address] Jul, [facility] [address] [facility] [id number] [address] [place] [phone] Jun, High ankle sprain of right l ower extremity, initial encounter S93.431A [facility] [address] [id number] [address] [place] [address] Jun, Essential hypertension I10 [facility] [address] [id number] [address] [place] [id number] Jun, [facility] [address] [id number] [address] [place] [phone] Jun, [facility] [address] [id number] [address] [place] [phone] Jun, Neuroforaminal stenosis of s jose M99.89 [facility] [address] [id number] [address] [place] [address] Jun, Pain of right upper extremit y M79.601 and Essential hypertension I10 [facility] [address] [id number] [address] [place] [phone] Jun, [facility] [address] [facility] [id number] [address] [place] [phone] 07 Mar, 2018 Dysuria R30.0 ; Acute cystit is with hematuria N30.01 and Screen for STD (sexually transmitted disease) Z11.3 [place] [address] [place] [id number] [address] [place] [address] May, Chronic pain due to trauma G 89.21 [place] [address] [facility] [id number] [address] [place] [address] May, Essential hypertension I10 [place] [address] [facility] [id number] [address] [place] [address] May, Neuroforaminal stenosis of s pine M99.89 [place] [address] [address] Apr, Allergic reaction, initial e ncounter T78.40XA [place] [address] [place] [id number] [place] [address] Apr, Low back pain, unspecified b ack pain laterality, unspecified chronicity, with sciatica presence unspecified M54.5 ; Acute cystitis with hematuria N30.01 ; 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 ; Bilateral acute serous otitis media, recurrence not specified H65.03 ; Mixed hyperlipidemia E78.2 ; Essential hypertension I10 ; Immunization counseling Z71.89 and Encounter for immunization Z23 [place] [address] [place] [id number] [address] [place] [phone] Apr, Neck pain M54.2 [place] [address] [place] [id number] [address] [place] [address] Mar, Neuroforaminal stenosis of s pine M99.89 [place] [address] [place] [id number] [address] [place] [address] Mar, Pharyngitis due to other org anism J02.8 [place] [address] [facility] [id number] [address] [place] [address] Feb, Neuroforaminal stenosis of s pine M99.89 [place] [address] [place] [id number] [address] [place] [phone] 08 Feb, 2017 UTI (urinary tract infection ) N39.0 [facility] [address] [id number] [address] [place] [phone] 07 Feb, 2017 Recent urinary tract infecti on Z87.440 ; Neuroforaminal stenosis of spine M99.89 ; Neck pain M54.2 ; Chronic pain due to trauma G89.21 and Recurrent UTI N39.0 [facility] [address] [id number] [address] [place] [address] Feb, [facility] [address] [id number] [address] [place] [address] Jan, Neuroforaminal stenosis of s pine M99.89 [facility] [address] [id number] [address] [place] [address] Dec, Neuroforaminal stenosis of s pine M99.89 [facility] [address] [id number] [address] [place] [address] Dec, Acute seasonal allergic rhin itis due to pollen J30.1 [facility] [address] [id number] [address] [place] [phone] 08 Dec, 2016 [facility] [address] [id number] [address] [place] [phone] Dec, Acute seasonal allergic rhin itis, unspecified trigger J30.2 ; Allergic conjunctivitis of both eyes H10.13 and Dysfunction of both eustachian tubes H69.83 [facility] [address] [id number] [address] [place] [phone] Dec, [facility] [address] [id number] [address] [place] [phone] Dec, Nevus D22.9 [facility] [address] [id number] [address] [place] [phone] Nov, Chronic pain due to trauma G 89.21 and 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 [place] [address] [id number] [address] [place] [phone] Nov, Neuroforaminal stenosis of s pine M99.89 ; Essential hypertension I10 ; Mixed hyperlipidemia E78.2 ; Hypokalemia E87.6 ; Neck pain M54.2 and Nevus D22.9 [facility] [address] [id number] [address] [place] [address] Oct, Neuroforaminal stenosis of s pine M99.89 [facility] [address] [id number] [address] [place] [address] Sep, Neuroforaminal stenosis of s pine M99.89 [facility] [address] [id number] [address] [place] [phone] Sep, [facility] [address] [id number] [address] [place] [phone] August, [facility] [address] [id number] [address] [place] [phone] August, Neck pain M54.2 and Neurofor aminal stenosis of spine M99.89 [facility] [address] [id number] [address] [place] [phone] August, Routine gynecological examin ation Z01.419 and Screening breast examination Z12.39 [facility] [address] [id number] [address] [place] [phone] Jul, [facility] [address] [id number] [address] [place] [id number] Jul, [facility] [address] [id number] [address] [place] [id number] Jul, Neuroforaminal stenosis of s pine M99.89 [facility] [address] [id number] [address] [place] [id number] Jul, [facility] [address] [id number] [address] [place] [id number] Jul, Neuroforaminal stenosis of l umbar 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 [facility] [address] [id number] [address] [place] [id number] Jul, [facility] [address] [id number] [address] [place] [id number] Jul, [facility] [address] [id number] [address] [place] [id number] Jun, Neuroforaminal stenosis of ayla garcia M99.89 [facility] [address] [id number] [address] [place] [id number] Jun, Uterine leiomyoma, unspecifi ed location D25.9 and Allergic reaction caused by a drug, initial encounter T78.40XA [facility] [address] [facility] [id number] [address] [place] [id number] Jun, [facility] [address] [facility] [id number] [address] [place] [id number] May, UTI symptoms R39.9 and Pain of right sacroiliac joint M53.3 [place] [address] [facility] [id number] [address] [place] [id number] May, Neuroforaminal stenosis of ayla garcia M99.89 [facility] [address] [facility] [id number] [address] [place] [id number] May, [facility] [address] [facility] [id number] [address] [place] [id number] May, Acute mucoid otitis media of left ear H65.112 and Acute non- recurrent maxillary sinusitis J01.00 [place] [id number] [facility] [id number] [address] [place] [place] [address] May, Acute bacterial conjunctivit is of both eyes H10.33 ; Left arm pain M79.602 and Hypokalemia E87.6 [facility] [address] [facility] [id number] [address] [place] [phone] Apr, [place] [address] [id number] [address] [place] [id number] Apr, Neuroforaminal stenosis of s pine M99.89 ; Neck pain M54.2 ; Chronic pain due to trauma G89.21 ; Mixed hyperlipidemia E78.2 ; Essential hypertension I10 and Hypokalemia E87.6 [facility] [address] [id number] [address] [place] [phone] Mar, Oral candidiasis B37.0 ; Nathaniel roforaminal stenosis of spine M99.89 ; Neck pain M54.2 and Chronic pain due to trauma G89.21 [facility] [address] [id number] [address] [place] [id number] Feb, [facility] [address] [id number] [address] [place] [id number] Feb, [facility] [address] [facility] [id number] [address] [place] [id number] Feb, UTI (urinary tract infection ) N39.0 [facility] [address] [id number] [address] [place] [address] Feb, Dysuria R30.0 [facility] [address] [facility] [id number] [address] [place] [phone] Feb, Dysuria R30.0 [facility] [address] [id number] [address] [place] [address] Feb, Neuroforaminal stenosis of s pine M99.89 ; Neck pain M54.2 ; Essential hypertension I10 ; Chronic pain due to trauma G89.21 ; Dysuria R30.0 ; Abnormal MRI, shoulder R93.8 and Acute cystitis without hematuria N30.00 [facility] [address] [id number] [address] [place] [phone] Jan, [facility] [address] [id number] [address] [place] [id number] Jan, [facility] [address] [id number] [address] [place] [phone] Jan, [facility] [address] [id number] [address] [place] [address] Jan, Abnormal MRI R93.8 [facility] [address] [id number] [address] [place] [id number] 29 Dec, 2015 [facility] [address] [id number] [address] [place] [id number] 15 Dec, 2015 Acute pain of left shoulder M25.512 [facility] [address] [id number] [address] [place] [id number] 09 Dec, 2015 [facility] [address] [id number] [address] [place] [id number] 08 Dec, 2015 [facility] [address] [id number] [address] [place] [id number] 07 Dec, 2015 Acute pain of left shoulder M25.512 [facility] [address] [id number] [address] [place] [id number] Nov, [facility] [address] [id number] [address] [place] [id number] Nov, Neuroforaminal stenosis of s pine M99.89 ; Neck pain M54.2 ; Abnormal mammogram R92.8 ; Essential hypertension I10 and Chronic pain due to trauma G89.21 [facility] [address] [id number] [address] [place] [id number] Nov, [facility] [address] [id number] [address] [place] [phone] Oct, Acute stress disorder F43.0 [facility] [address] [id number] [address] [place] [phone] Oct, [facility] [address] [id number] [address] [place] [id number] Oct, [facility] [address] [id number] [address] [place] [phone] Oct, [facility] [address] [id number] [address] [place] [id number] Sep, [facility] [address] [id number] [address] [place] [address] August, [facility] [address] [id number] [address] [place] [id number] Jul, Neuroforaminal stenosis of s pine M99.89 ; Neck pain M54.2 ; Abnormal mammogram R92.8 and Essential hypertension I10 [facility] [address] [id number] [address] [place] [id number] Jul, [facility] [address] [id number] [address] [place] [id number] Jul, [facility] [address] [id number] [address] [place] [phone] Jul, Abnormal mammogram R92.8 [facility] [address] [id number] [address] [place] [phone] Jul, [facility] [address] [id number] [address] [place] [id number] Jul, UTI (urinary tract infection ) N39.0 [facility] [address] [id number] [address] [place] [id number] Jul, Dysuria R30.0 [facility] [address] [id number] [address] [place] [id number] Jun, [facility] [address] [id number] [address] [place] [phone] Jun, [facility] [address] [id number] [address] [place] [address] Jun, Hypokalemia E87.6 and Hematu martina R31.9 [facility] [address] [id number] [address] [place] [id number] Jun, Hypokalemia E87.6 [place] [address] [place] [id number] [address] [place] [phone] Jun, [place] [address] [address] Jun, Hypokalemia E87.6 [place] [address] [address] Jun, Hypokalemia E87.6 [place] [address] [id number] 15 Jun, 2015 Neuroforaminal stenosis of s pine M99.89 ; Hypokalemia E87.6 ; Neck pain M54.2 ; Essential hypertension I10 ; Mixed hyperlipidemia E78.2 and Screening breast examination Z12.39 [place] [address] [id number] 08 Jun, 2015 Dysuria R30.0 ; UTI (urinary tract infection) N39.0 and Hematuria R31.9 [place] [address] [address] May, [place] [address] [id number] 18 May, 2015 High risk sexual behavior Z7 2.51 ; Hypokalemia E87.6 ; Neuroforaminal stenosis of spine M99.89 ; Neck pain M54.2 ; Essential hypertension I10 ; Mixed hyperlipidemia E78.2 ; STD exposure Z20.2 and Concern about STD in female without diagnosis Z71.1 [place] [address] [place] [id number] [address] [place] [id number] 16 May, 2015 Neuroforaminal stenosis of s pine M99.89 ; Neck pain M54.2 ; Hypokalemia E87.6 ; Essential hypertension I10 and Mixed hyperlipidemia E78.2 [place] [address] [place] [id number] [address] [place] [address] May, [facility] [address] [id number] 08 May, 2015 High risk sexual behavior Z7 2.51 ; STD exposure Z20.2 and Concern about STD in female without diagnosis Z71.1 [facility] [address] [place] [id number] [address] [place] [id number] 05 May, 2015 [facility] [address] [address] Apr, Neuroforaminal stenosis of ayla garcia M99.89 ; Mixed hyperlipidemia E78.2 ; Essential hypertension I10 and Hypokalemia E87.6 [place] [address] [address] Mar, [place] [address] [address] Mar, Hypokalemia E87.6 [place] [address] [address] Mar, Neuroforaminal stenosis of s jose M99.89 ; Mixed hyperlipidemia E78.2 ; Neck pain M54.2 ; Essential hypertension I10 ; Abnormal fasting glucose R73.09 ; Hypokalemia E87.6 and Constipation K59.00 [place] [address] [place] [id number] [address] [place] [address] Feb, Neuroforaminal stenosis of s jose M99.89 ; Mixed hyperlipidemia E78.2 ; Neck pain M54.2 ; Essential hypertension I10 ; Abnormal fasting glucose R73.09 ; Hypokalemia E87.6 and Constipation K59.00 [place] [address] [place] [id number] [address] [place] [address] Feb, Elevated fasting blood sugar R73.01 [place] [address] [address] Feb, Elevated fasting blood sugar R73.01 [place] [address] [address] Feb, Hair loss L65.9 [facility] [address] [facility] [id number] [address] [place] [address] Feb, Sinusitis J32.9 ; Essential hypertension I10 and Hair loss L65.9 [facility] [address] [id number] [address] [place] [phone] Jan, [facility] [address] [facility] [id number] [address] [place] [phone] Jan, Essential hypertension I10 ; Neuroforaminal stenosis of spine M99.89 ; Neck pain M54.2 ; Mixed hyperlipidemia E78.2 and Anxiety F41.9 [place] [address] [facility] [id number] [address] [place] [id number] Jan, [place] [address] [place] [id number] [address] [place] [address] Jan, Mixed hyperlipidemia E78.2 ; Essential (primary) hypertension I10 ; Strain of muscle, fascia and tendon at neck level, subsequent encounter S16.1XXD and Tension-type headache, unspecified, not intractable G44.209 [place] [id number] [facility] [id number] [address] [place] [id number] Dec, Lumbar back pain 724.2 and N euroforaminal stenosis of spine 724.00 [place] [address] [place] [id number] [address] [place] [id number] Nov, [place] [address] [facility] [id number] [address] [place] [id number] Nov, Lumbar back pain 724.2 and N euroforaminal stenosis of spine 724.00 [place] [address] [place] [id number] [address] [place] [id number] Nov, Edema 782.3 ; Lumbar back pa in 724.2 ; Essential hypertension, benign 401.1 ; Hyperlipemia 272.4 ; Neuroforaminal stenosis of spine 724.00 and Post-concussion headache 339.20 [place] [address] [facility] [id number] [address] [place] [id number] Nov, [facility] [address] [id number] [address] [place] [phone] Nov, [facility] [address] [id number] [address] [place] [id number] Oct, Essential hypertension, sheridan gn 401.1 [facility] [address] [id number] [address] [place] [phone] Oct, Edema 782.3 ; Lumbar back pa in 724.2 ; Essential hypertension, benign 401.1 ; Hyperlipemia 272.4 ; Neuroforaminal stenosis of spine 724.00 and Post-concussion headache 339.20 [facility] [address] [id number] [address] [place] [id number] Oct, [place] [address] [facility] [id number] [address] [place] [phone] Oct, Edema 782.3 [facility] [address] [id number] [address] [place] [id number] Oct, Lumbar back pain 724.2 [place] [address] [facility] [id number] [address] [place] [id number] Oct, Cervicalgia 723.1 ; Lumbar b ack pain 724.2 and High risk medication use V58.69 [place] [address] [facility] [id number] [address] [place] [id number] Sep, [facility] [address] [id number] [address] [place] [phone] Sep, Lumbar strain 847.2 [place] [address] [facility] [id number] [address] [place] [address] August, Edema 782.3 and Eustachian t ube dysfunction 381.81 [facility] [address] [facility] [id number] [address] [place] [phone] August, [place] [address] [id number] [address] [place] [id number] August, Eustachian tube dysfunction 381.81 [facility] [address] [id number] [address] [place] [address] Jul, Otalgia 388.70 and Otitis me jonathon 382.9 [facility] [address] [id number] [address] [place] [phone] Jul, [facility] [address] [id number] [address] [place] [id number] Jul, [facility] [address] [id number] [address] [place] [id number] Jul, [facility] [address] [id number] [address] [place] [id number] Jul, [facility] [address] [id number] [address] [place] [id number] Jul, [facility] [address] [id number] [address] [place] [id number] Jun, [facility] [address] [id number] [address] [place] [id number] Jun, [facility] [address] [id number] [address] [place] [id number] Jun, [facility] [address] [id number] [address] [place] [phone] May, [facility] [address] [id number] [address] [place] [phone] May, [facility] [address] [id number] [address] [place] [id number] May, [facility] [address] [id number] [address] [place] [id number] May, [facility] [address] [id number] [address] [place] [phone] May, [facility] [address] [id number] [address] [place] [address], [place] [address] May, [facility] [address] [id number] [address] [place] [address], [place] [address] May, [facility] [address] [id number] [address] [place] [address], [place] [address] May, [facility] [address] [id number] [address] [place] [address], [place] [address] May, [facility] [address] [id number] [address] [place] [address], [place] [address] May, [facility] [address] [id number] [address] [place] [address], [place] [address] Apr, [facility] [address] [id number] [address] [place] [address], [place] [address] Apr, [facility] [address] [id number] [address] [place] [address], [place] [address] Apr, [facility] [address] [id number] [address] [place] [address], [place] [address] Apr, [facility] [address] [id number] [address] [place] [address], [place] [address] Apr, [facility] [address] [id number] [address] [place] [address], [place] [address] Apr, [facility] [address] [id number] [address] [place] [address], [place] [address] Apr, [facility] [address] [id number] [address] [place] [address], [place] [address] Apr, [facility] [address] [id number] [address] [place] [address], [place] [address] Apr, [facility] [address] [id number] [address] [place] [address], [place] [address] Apr, [facility] [address] [id number] [address] [place] [address], [place] [address] Apr, [facility] [address] [id number] [address] [place] [address], [place] [address] Apr, [facility] [address] [id number] [address] [place] [address], [place] [address] Apr, [facility] [address] [id number] [address] [place] [address], [place] [address] Apr, [facility] [address] [id number] [address] [place] [address], [place] [address] Apr, [facility] [address] [id number] [address] [place] [address], [place] [address] Mar, [facility] [address] [id number] [address] [place] [address], [place] [address] Mar, [facility] [address] [id number] [address] [place] [address], [place] [address] Mar, [facility] [address] [id number] [address] [place] [address], [place] [address] Mar, [facility] [address] [id number] [address] [place] [address], [place] [address] Feb, [facility] [address] [id number] [address] [place] [address], [place] [address] Feb, [facility] [address] [id number] [address] [place] [address], [place] [address] Feb, [facility] [address] [id number] [address] [place] [address], [place] [address] Feb, [facility] [address] [id number] [address] [place] [address], [place] [address] Jan, [facility] [address] [id number] [address] [place] [address], [place] [address] Jan, [facility] [address] [id number] [address] [place] [address], [place] [address] Jan, [facility] [address] [id number] [address] [place] [address], [place] [address] Jan, [facility] [address] [id number] [address] [place] [address], [place] [address] Jan, [facility] [address] [id number] [address] [place] [address], [place] [address] Jan, [facility] [address] [id number] [address] [place] [address], [place] [address] Jan, [facility] [address] [id number] [address] [place] [address], [place] [address] Jan, [facility] [address] [id number] [address] [place] [address], [place] [address] Dec, [facility] [address] [id number] [address] [place] [address], [place] [address] Dec, [facility] [address] [id number] [address] [place] [address], [place] [address] Dec, [facility] [address] [id number] [address] [place] [address], [place] [address] Dec, [facility] [address] [id number] [address] [place] [address], [place] [address] Oct, [facility] [address] [id number] [address] [place] [address], [place] [address] Oct, [facility] [address] [id number] [address] [place] [address], [place] [address] Oct, [facility] [address] [id number] [address] [place] [address], [place] [address] Oct, [facility] [address] [id number] [address] [place] [address], [place] [address] Oct, [facility] [address] [id number] [address] [place] [address], [place] [address] Oct, 2013 [facility] [address] [id number] [address] [place] [address], [place] [address] Oct, [facility] [address] [id number] [address] [place] [address] Oct, [facility] [address] [id number] [address] [place] [address], [place] [address] Sep, [facility] [address] [id number] [address] [place] [address], [place] [address] Sep, [facility] [address] [id number] [address] [place] [address], [place] [address] Sep, [facility] [address] [id number] [address] [place] [address], [place] [address] Sep, [facility] [address] [id number] [address] [place] [address], [place] [address] Sep, [facility] [address] [id number] [address] [place] [address], [place] [address] Sep, [facility] [address] [id number] [address] [place] [address], [place] [address] Sep, [facility] [address] [id number] [address] [place] [address], [place] [address] Sep, [facility] [address] [id number] [address] [place] [address], [place] [address] Sep, [facility] [address] [id number] [address] [place] [address], [place] [address] Sep, [facility] [address] [id number] [address] [place] [address], [place] [address] August, [facility] [address] [id number] [address] [place] [address], [place] [address] August, [facility] [address] [id number] [address] [place] [address], [place] [address] August, [facility] [address] [id number] [address] [place] [address], [place] [address] August, [facility] [address] [id number] [address] [place] [address] August, [facility] [address] [id number] [address] [place] [address], [place] [address] August, [facility] [address] [id number] [address] [place] [address], [place] [address] August, [facility] [address] [id number] [address] [place] [address], [place] [address] August, [facility] [address] [id number] [address] [place] [address], [place] [address] August, [facility] [address] [id number] [address] [place] [address], [place] [address] August, [facility] [address] [id number] [address] [place] [address], [place] [address] August, [facility] [address] [id number] [address] [place] [address], [place] [address] August, [facility] [address] [id number] [address] [place] [address], [place] [address] Jul, [facility] [address] [id number] [address] [place] [address], [place] [address] Jul, [facility] [address] [id number] [address] [place] [address], [place] [address] Jul, [facility] [address] [id number] [address] [place] [address], [place] [address] Jul, [facility] [address] [id number] [address] [place] [address], [place] [address] Jul, [facility] [address] [id number] [address] [place] [address], [place] [address] Jul, [facility] [address] [id number] [address] [place] [address], [place] [address] Jun, [facility] [address] [id number] [address] [place] [address], [place] [address] Jun, [facility] [address] [id number] [address] [place] [address], [place] [address] May, [facility] [address] [id number] [address] [place] [address], [place] [address] May, [facility] [address] [id number] [address] [place] [address], [place] [address] Apr, [facility] [address] [id number] [address] [place] [address], [place] [address] Apr, [facility] [address] [id number] [address] [place] [address], [place] [address] Apr, [facility] [address] [id number] [address] [place] [address], [place] [address] Apr, [facility] [facility] [address] [id number] [address] [place] [address], [place] [address] Apr, [facility] [address] [id number] [address] [place] [address], [place] [address] Apr, [facility] [address] [id number] [address] [place] [address], [place] [address] Apr, [facility] [address] [id number] [address] [place] [address], [place] [address] Apr, [facility] [address] [id number] [address] [place] [address], [place] [address] Apr, [facility] [address] [id number] [address] [place] [address], [place] [address] Apr, [facility] [address] [id number] [address] [place] [address], [place] [address] Apr, [facility] [address] [id number] [address] [place] [address], [place] [address] Apr, [facility] [address] [id number] [address] [place] [address], [place] [address] Apr, [facility] [address] [id number] [address] [place] [address] Mar, [facility] [address] [id number] [address] [place] [address], [place] [address] Mar, [facility] [address] [id number] [address] [place] [address] Mar, [facility] [address] [id number] [address] [place] [address], [place] [address] Mar, [facility] [address] [id number] [address] [place] [address], [place] [address] Feb, [facility] [address] [id number] [address] [place] [address], [place] [address] Feb, [facility] [address] [id number] [address] [place] [address], [place] [address] Feb, [facility] [address] [id number] [address] [place] [address] Feb, [facility] [address] [id number] [address] [place] [address], [place] [address] Jan, [facility] [address] [id number] [address] [place] [address] 14 Jan, 2013 [facility] [address] [id number] [address] [place] [address] Jan, [facility] [address] [id number] [address] [place] [address] Jan, [facility] [address] [id number] [address] [place] [address] Jan, [facility] [address] [id number] [address] [place] [address] Jan, [facility] [address] [id number] [address] [place] [address] Jan, [facility] [address] [id number] [address] [place] [address] 09 Jan, 2013 [facility] [address] [id number] [address] [place] [address], [place] [address] Jan, [facility] [address] [id number] [address] [place] [address], [place] [address] 26 Dec, 2012 [facility] [address] [id number] [address] [place] [address], [place] [address] 16 Dec, 2012 [facility] [address] [id number] [address] [place] [address], [place] [address] 16 Dec, 2012 [facility] [address] [id number] [address] [place] [address], [place] [address] 13 Dec, 2012 [facility] [address] [id number] [address] [place] [address], [place] [address] Nov, [facility] [address] [id number] [address] [place] [address], [place] [address] Nov, [facility] [address] [id number] [address] [place] [address], [place] [address] Nov, [facility] [address] [id number] [address] [place] [address], [place] [address] Nov, [facility] [address] [id number] [address] [place] [address], [place] [address] Oct, [facility] [address] [id number] [address] [place] [address], [place] [address] Sep, [facility] [address] [id number] [address] [place] [address], [place] [address] August, [facility] [address] [id number] [address] [place] [address], [place] [address] August, [facility] [address] [id number] [address] [place] [address], [place] [address] August, [facility] [address] [id number] [address] [place] [address], [place] [address] August, [facility] [address] [id number] [address] [place] [address], [place] [address] 15 Aug, 2012 [facility] [address] [id number] [address] [place] [address], [place] [address] August, [facility] [address] [id number] [address] [place] [address], [place] [address] August, [facility] [address] [id number] [address] [place] [address], [place] [address] August, [facility] [address] [id number] [address] [place] [address], [place] [address] August, [facility] [address] [id number] [address] [place] [address], [place] [address] August, [facility] [address] [id number] [address] [place] [address], [place] [address] August, [facility] [address] [id number] [address] [place] [address], [place] [address] August, [facility] [address] [id number] [address] [place] [address], [place] [address] Jul, [facility] [address] [id number] [address] [place] [address], [place] [address] Jul, [facility] [address] [id number] [address] [place] [address], [place] [address] 18 Jul, 2012 [facility] [address] [id number] [address] [place] [address], [place] [address] 15 Jul, 2012 [facility] [address] [id number] [address] [place] [address], [place] [address] Jul, [facility] [address] [id number] [address] [place] [address], [place] [address] Jul, [facility] [address] [id number] [address] [place] [address], [place] [address] 04 Jul, 2012 [facility] [address] [id number] [address] [place] [address], [place] [address] Jul, [facility] [address] [id number] [address] [place] [address], [place] [address] Jul, [facility] [address] [id number] [address] [place] [address], [place] [address] Jul, [facility] [address] [id number] [address] [place] [address], [place] [address] Jul, [facility] [address] [id number] [address] [place] [address], [place] [address] Jun, [facility] [address] [id number] [address] [place] [address], [place] [address] Jun, [facility] [address] [id number] [address] [place] [address], [place] [address] Jun, [facility] [address] [id number] [address] [place] [address], [place] [address] Jun, [facility] [address] [id number] [address] [place] [address], [place] [address] May, [facility] [address] [id number] [address] [place] [address], [place] [address] 14 May, 2012 [facility] [address] [id number] [address] [place] [address], [place] [address] 05 May, 2012 [facility] [address] [id number] [address] [place] [address], [place] [address] May, [facility] [address] [id number] [address] [place] [address], [place] [address] May, [facility] [address] [id number] [address] [place] [address], [place] [address] May, [facility] [address] [id number] [address] [place] [address], [place] [address] Apr, [facility] [address] [id number] [address] [place] [address], [place] [address] Apr, [facility] [address] [id number] [address] [place] [address], [place] [address] Apr, [facility] [address] [id number] [address] [place] [address], [place] [address] Apr, [facility] [address] [id number] [address] [place] [address], [place] [address] 15 Mar, 2012 [facility] [address] [id number] [address] [place] [address], [place] [address] 14 Mar, 2012 [facility] [address] [id number] [address] [place] [address], [place] [address] Mar, [facility] [address] [id number] [address] [place] [address], [place] [address] Mar, [facility] [address] [id number] [address] [place] [address], [place] [address] Mar, [facility] [address] [id number] [address] [place] [address], [place] [address] Mar, [facility] [address] [id number] [address] [place] [address], [place] [address] Mar, [facility] [address] [id number] [address] [place] [address], [place] [address] Feb, [facility] [address] [id number] [address] [place] [address], [place] [address] Feb, [facility] [address] [id number] [address] [place] [address], [place] [address] Feb, [facility] [address] [id number] [address] [place] [address], [place] [address] Feb, [facility] [address] [id number] [address] [place] [address], [place] [address] Jan, [facility] [address] [id number] [address] [place] [address], [place] [address] Jan, [facility] [address] [id number] [address] [place] [address], [place] [address] Jan, [facility] [address] [id number] [address] [place] [address] [place] [address] Jan, [facility] [address] [id number] [address] [place] [address], [place] [address] Jan, [facility] [address] [id number] [address] [place] [address], [place] [address] Jan, [facility] [address] [id number] [address] [place] [address], [place] [address] Dec, [facility] [address] [id number] [address] [place] [address], [place] [address] Dec, [facility] [address] [id number] [address] [place] [address], [place] [address] Nov, [facility] [address] [id number] [address] [place] [address], [place] [address] Sep, [facility] [address] [id number] [address] [place] [address], [place] [address] August, [facility] [address] [id number] [address] [place] [address], [place] [address] August, [facility] [address] [id number] [address] [place] [address], [place] [address] August, [facility] [address] [id number] [address] [place] [address], [place] [address] August, [facility] [address] [id number] [address] [place] [address], [place] [address] August, [facility] [address] [id number] [address] [place] [address], [place] [address] Jun, [facility] [address] [id number] [address] [place] [address], [place] [address] Jun, [facility] [address] [id number] [address] [place] [address], [place] [address] Apr, [facility] [address] [id number] [address] [place] [address], [place] [address] Apr, [facility] [address] [id number] [address] [place] [address], [place] [address] 23 Mar, 2011 [facility] [address] [id number] [address] [place] [address], [place] [address] 22 Feb, 2011 [facility] [address] [id number] [address] [place] [address], [place] [address] 14 Feb, 2011 [facility] [address] [id number] [address] [place] [address], [place] [address] 14 Feb, 2011 [facility] [address] [id number] [address] [place] [address], [place] [address] 17 Jan, 2011 [facility] [address] [id number] [address] [place] [address], [place] [address] 15 Jan, 2011 [facility] [address] [id number] [address] [place] [address], [place] [address] 15 Jan, 2011 [facility] [address] [id number] [address] [place] [address], [place] [address] 14 Jan, 2011 [facility] [address] [id number] [address] [place] [address], [place] [address] 15 May, 2010 [facility] [address] [id number] [address] [place] [address], [place] [address] 04 Mar, 2010 [facility] [address] [id number] [address] [place] [address], [place] [address] Oct, [facility] [address] [id number] [address] [place] [address], [place] [address] Sep, [facility] [address] [id number] [address] [place] [address], [place] [address] Mar, [facility] [address] [id number] [address] [place] [address], [place] [address] Jan, [facility] [address] [id number] [address] [place] [address], [place] [address] Jan, [facility] [address] [id number] [address] [place] [address] May, IMMUNIZATIONS No Known Immunizations SOCIAL HISTORY [...]
--- OUTSIDE RECORDS SUMMARY | 2019-11-23 06:15 | XMS REPORT ---
Author Author Liana Coe Doctor Organization [facility] Address Unknown Phone Unavailable Care Team Providers Care Assessment Expert Name Role Phone Migration, Doctor Unavailable Unavailable PROBLEMS Type Condition ICD9-CM Code [id number] Code Onset Dates Condition S tatus SNOMED Code Problem Anxiety F41.9 Active 85545072 Problem Neck pain M54.2 Active 00346810 Problem Neuroforaminal stenosis of spine M99.89 Active 278208436220 Problem Hematuria, unspecified type R31.9 Ac tive 48109609 Problem Seasonal allergies J30.2 Active 4 83921530 Problem Abnormal glucose R73.09 Active 102 853419 Problem Rhinosinusitis J32.9 Active 75898 4004 Problem Abnormal renal ultrasound R93.429 Acti ve 26002058562220195 Problem Essential hypertension I10 Active 69458590 Problem Mixed hyperlipidemia E78.2 Active 65940054 Problem Hypokalemia E87.6 Active 03346592 Problem Chronic pain due to trauma G89.21 Act juanis [id number] ALLERGIES No Information ENCOUNTERS Encounter Location Date Diagnosis [place] [facility] [id number] [place] [address] Jul, [facility] [address] [place] [id number] [address] [place] [address] Jun, Hypokalemia E87.6 [facility] [address] [facility] [id number] [place] [address] Jun, [facility] [address] [facility] [id number] [place] [address] Jun, Neuroforaminal stenosis of s pine M99.89 [facility] [address] [place] [id number] [address] [place] [address] Jun, Lateral epicondylitis, left elbow M77.12 and Medial epicondylitis, left elbow M77.02 [facility] [address] [id number] [address] [place] [address] 16 Jun, 2019 Foraminal stenosis of lumbar region M48.061 ; Segmental dysfunction of thoracic region M99.02 ; Segmental dysfunction of lumbar region M99.03 and Segmental dysfunction of sacral region M99.04 [place] [address] [id number] [address] [place] [address] May, Left elbow pain M25.522 [place] [address] [id number] [address] [place] [address] May, [place] [address] [id number] [address] [place] [address] May, Left elbow pain M25.522 [place] [address] [id number] [address] [place] [address] May, Neuroforaminal stenosis of s pine M99.89 [place] [facility] [id number] [place] [address] May, Rhinosinusitis J32.9 ; Left elbow pain M25.522 and Neck pain M54.2 [place] [facility] [id number] [place] [address] 14 May, 2019 Lateral epicondylitis of lef t elbow M77.12 [place] [facility] [id number] [place] [address] Apr, Neuroforaminal stenosis of s pine M99.89 [place] [address] [id number] [address] [place] [address] Apr, Essential hypertension I10 a nd Mixed hyperlipidemia E78.2 [place] [facility] [id number] [place] [address] Mar, Neuroforaminal stenosis of s pine M99.89 [place] [address] [id number] [place] [address] Mar, Epicondylitis, lateral, left M77.12 [facility] [address] [facility] [id number] [place] [address] Mar, [facility] [address] [facility] [id number] [place] [address] Mar, Neuroforaminal stenosis of s pine M99.89 [facility] [address] [facility] [id number] [place] [address] Feb, Neuroforaminal stenosis of s pine M99.89 ; Essential hypertension I10 ; Mixed hyperlipidemia E78.2 ; Encounter for immunization Z23 and Seasonal allergies J30.2 [facility] [address] [facility] [id number] [place] [address] Jan, Neuroforaminal stenosis of s pine M99.89 [facility] [address] [place] [id number] [address] [place] [address] Dec, Neuroforaminal stenosis of s pine M99.89 [facility] [address] [place] [id number] [address] [place] [address] Dec, Neuroforaminal stenosis of s pine M99.89 [facility] [address] [place] [id number] [address] [place] [address] Nov, [facility] [address] [place] [id number] [address] [place] [address] Nov, Neuroforaminal stenosis of s pine M99.89 [facility] [address] [place] [id number] [address] [place] [address] Nov, Acute non-recurrent maxillar y sinusitis J01.00 [facility] [address] [facility] [id number] [place] [address] Oct, Hypokalemia E87.6 [facility] [address] [facility] [id number] [place] [address] Oct, Wasp sting, undetermined int ent, initial encounter T63.464A and Cellulitis of left lower extremity L03.116 [place] [address] [id number] [address] [place] [address] Oct, Neuroforaminal stenosis of s pine M99.89 [place] [address] [id number] [address] [place] [phone] Sep, [place] [address] [id number] [address] [place] [address] Sep, [place] [address] [id number] [address] [place] [address] Sep, Routine screening for STI (s exually transmitted infection) Z11.3 [place] [address] [id number] [address] [place] [address] 14 Sep, 2018 Routine screening for STI (s exually transmitted infection) Z11.3 ; Well woman exam with routine gynecological exam Z01.419 and Breast cancer screening Z12.39 [place] [address] [id number] [address] [place] [address] Sep, Neuroforaminal stenosis of s pine M99.89 [place] [address] [id number] [address] [place] [address] August, Neuroforaminal stenosis of s pine M99.89 [place] [address] [id number] [address] [place] [address] August, Neuroforaminal stenosis of s pine M99.89 ; Chronic pain due to trauma G89.21 and Mixed hyperlipidemia E78.2 [place] [address] [id number] [address] [place] [address] Jul, Viral upper respiratory illn ess J06.9 and Acute non-recurrent frontal sinusitis J01.10 [place] [facility] [id number] [place] [address] Jul, Congestion of nasal sinus R0 9.81 [place] [facility] [id number] [place] [address] Jul, Neuroforaminal stenosis of s pine M99.89 and Essential hypertension I10 [facility] [address] [id number] [address] [place] [address] May, Neuroforaminal stenosis of s pine M99.89 [facility] [address] [id number] [address] [place] [address] May, [facility] [address] [id number] [address] [place] [address] May, Congestion of nasal sinus R0 9.81 [facility] [address] [id number] [address] [place] [address] May, [facility] [address] [id number] [address] [place] [address] Apr, Neuroforaminal stenosis of s pine M99.89 [facility] [address] [id number] [address] [place] [address] Apr, Neuroforaminal stenosis of s pine M99.89 and Chronic pain due to trauma G89.21 [facility] [address] [id number] [address] [place] [address] Mar, UTI (urinary tract infection ) N39.0 [facility] [address] [id number] [address] [place] [address] Mar, Vertigo R42 [facility] [address] [id number] [address] [place] [address] Mar, Neuroforaminal stenosis of s pine M99.89 [facility] [address] [id number] [address] [place] [address] Feb, Extensor tendon disruption M 67.89 [facility] [address] [id number] [address] [place] [address] Feb, Neuroforaminal stenosis of s pine M99.89 and High risk medication use Z79.899 [facility] [address] [id number] [address] [place] [address] Jan, Hypokalemia E87.6 [place] [facility] [id number] [place] [address] Jan, Flank pain R10.9 and Acute r ight-sided low back pain without sciatica M54.5 [facility] [address] [facility] [id number] [place] [address] Jan, Hypokalemia E87.6 [place] [facility] [facility] [id number] [place] [address] Jan, [place] [facility] [facility] [id number] [place] [address] Jan, URI, acute J06.9 [place] [facility] [facility] [id number] [place] [address] Jan, Neuroforaminal stenosis of s pine M99.89 [place] [address] [place] [id number] [address] [place] [address] 13 Dec, 2017 Lateral epicondylitis, right elbow M77.11 [place] [address] [place] [id number] [address] [place] [address] 11 Dec, 2017 Allergic rhinitis due to monica rosalina, unspecified seasonality J30.1 and Allergic conjunctivitis of both eyes H10.13 [place] [address] [place] [id number] [address] [place] [address] 10 Dec, 2017 Neuroforaminal stenosis of s pine M99.89 [place] [facility] [id number] [place] [address] 06 Dec, 2017 Mixed hyperlipidemia E78.2 [place] [address] [place] [id number] [place] [address] 05 Dec, 2017 Abnormal glucose R73.09 ; Ab normal renal ultrasound R93.429 ; Dysuria R30.0 ; Cystitis without hematuria N30.90 ; Hypokalemia E87.6 ; Mixed hyperlipidemia E78.2 and Hematuria, unspecified type R31.9 [place] [address] [id number] [address] [place] [address] Nov, Hypokalemia E87.6 ; Mixed hy perlipidemia E78.2 and Hematuria, unspecified type R31.9 [facility] [address] [id number] [address] [place] [address] Nov, [facility] [address] [id number] [address] [place] [address] Nov, Hypokalemia E87.6 [place] [address] [id number] [address] [place] [address] Nov, [place] [address] [id number] [address] [place] [address] Nov, Abnormal renal ultrasound R9 3.429 [place] [address] [id number] [address] [place] [address] Nov, Abnormal renal ultrasound R9 3.429 [place] [address] [id number] [address] [place] [address] Nov, Hematuria, unspecified type R31.9 and Neuroforaminal stenosis of spine M99.89 [place] [facility] [id number] [place] [address] Nov, Dysuria R30.0 [place] [address] [id number] [address] [place] [address] Oct, Lateral epicondylitis, right elbow M77.11 [place] [address] [id number] [address] [place] [address] Oct, Neuroforaminal stenosis of s pine M99.89 ; Visit for TB skin test Z11.1 and Essential hypertension I10 [place] [address] [id number] [address] [place] [address] Oct, [place] [facility] [id number] [place] [address] Oct, Neuroforaminal stenosis of s pine M99.89 [place] [address] [id number] [address] [place] [address] 10 Oct, 2017 Visit for TB skin test Z11.1 [place] [address] [id number] [address] [place] [address] 05 Oct, 2017 Cystitis without hematuria N 30.90 [place] [address] [id number] [address] [place] [address] 28 Sep, 2017 Screening breast examination Z12.39 [place] [address] [id number] [address] [place] [address] 26 Sep, 2017 Dysuria R30.0 and Cystitis w ithout hematuria N30.90 [place] [address] [id number] [address] [place] [address] 14 Sep, 2017 Essential hypertension I10 a nd Neuroforaminal stenosis of spine M99.89 [place] [address] [id number] [address] [place] [address] 04 Sep, 2017 Abnormal glucose R73.09 [place] [address] [id number] [address] [place] [address] August, Lateral epicondylitis, right elbow M77.11 [place] [address] [id number] [address] [place] [address] August, Screen for STD (sexually tra nsmitted disease) Z11.3 [place] [address] [id number] [address] [place] [address] August, Neuroforaminal stenosis of s pine M99.89 ; Mixed hyperlipidemia E78.2 ; Elevated fasting glucose R73.01 ; Screening mammogram, encounter for Z12.31 and Encounter for well woman exam without gynecological exam Z00.00 [place] [address] [id number] [address] [place] [address] August, Neuroforaminal stenosis of s pine M99.89 [place] [address] [id number] [address] [place] [address] August, Essential hypertension I10 ; Hypokalemia E87.6 and Mixed hyperlipidemia E78.2 [facility] [address] [id number] [address] [place] [address] Jul, [facility] [address] [facility] [id number] [place] [address] Jul, Neuroforaminal stenosis of s pine M99.89 [facility] [address] [id number] [address] [place] [address] Jul, Lateral epicondylitis, right elbow M77.11 [facility] [address] [facility] [id number] [place] [address] Jul, [facility] [address] [facility] [id number] [place] [address] Jun, High ankle sprain of right l ower extremity, initial encounter S93.431A [facility] [address] [id number] [address] [place] [address] Jun, Essential hypertension I10 [facility] [address] [id number] [address] [place] [address] Jun, [facility] [address] [id number] [address] [place] [address] Jun, [facility] [address] [id number] [address] [place] [address] Jun, Neuroforaminal stenosis of s jose M99.89 [facility] [address] [id number] [address] [place] [address] Jun, Pain of right upper extremit y M79.601 and Essential hypertension I10 [facility] [address] [id number] [address] [place] [address] Jun, [facility] [address] [facility] [id number] [place] [address] 07 Mar, 2018 Dysuria R30.0 ; Acute cystit is with hematuria N30.01 and Screen for STD (sexually transmitted disease) Z11.3 [place] [address] [place] [id number] [place] [address] May, Chronic pain due to trauma G 89.21 [place] [address] [id number] [place] [address] May, Essential hypertension I10 [place] [address] [id number] [place] [address] May, Neuroforaminal stenosis of s pine M99.89 [place] [address] [address] Apr, Allergic reaction, initial e ncounter T78.40XA [place] [address] [place] [id number] [place] [address] Apr, Low back pain, unspecified b ack pain laterality, unspecified chronicity, with sciatica presence unspecified M54.5 ; Acute cystitis with hematuria N30.01 ; Neuroforaminal stenosis of spine M99.89 ; Bilateral acute serous otitis media, recurrence not specified H65.03 ; Mixed hyperlipidemia E78.2 ; Essential hypertension I10 ; Immunization counseling Z71.89 and Encounter for immunization Z23 [place] [address] [place] [id number] [place] [address] Apr, Neck pain M54.2 [place] [address] [place] [id number] [place] [address] Mar, Neuroforaminal stenosis of s pine M99.89 [place] [address] [place] [id number] [place] [address] Mar, Pharyngitis due to other org anism J02.8 [place] [address] [facility] [id number] [place] [address] Feb, Neuroforaminal stenosis of s pine M99.89 [place] [address] [place] [id number] [place] [address] 08 Feb, 2017 UTI (urinary tract infection ) N39.0 [facility] [address] [id number] [address] [place] [address] 07 Feb, 2017 Recent urinary tract infecti on Z87.440 ; Neuroforaminal stenosis of spine M99.89 ; Neck pain M54.2 ; Chronic pain due to trauma G89.21 and Recurrent UTI N39.0 [facility] [address] [id number] [address] [place] [address] Feb, [facility] [address] [id number] [address] [place] [address] Jan, Neuroforaminal stenosis of s pine M99.89 [facility] [address] [id number] [address] [place] [address] Dec, Neuroforaminal stenosis of s pine M99.89 [facility] [address] [id number] [address] [place] [address] Dec, Acute seasonal allergic rhin itis due to pollen J30.1 [facility] [address] [id number] [address] [place] [id number] 08 Dec, 2016 [facility] [address] [id number] [address] [place] [address] Dec, Acute seasonal allergic rhin itis, unspecified trigger J30.2 ; Allergic conjunctivitis of both eyes H10.13 and Dysfunction of both eustachian tubes H69.83 [facility] [address] [id number] [address] [place] [address] Dec, [facility] [address] [id number] [address] [place] [address] Dec, Nevus D22.9 [facility] [address] [id number] [address] [place] [address] Nov, Chronic pain due to trauma G 89.21 and Neuroforaminal stenosis of spine M99.89 [place] [address] [id number] [address] [place] [address] Nov, Neuroforaminal stenosis of s pine M99.89 ; Essential hypertension I10 ; Mixed hyperlipidemia E78.2 ; Hypokalemia E87.6 ; Neck pain M54.2 and Nevus D22.9 [facility] [address] [id number] [address] [place] [address] Oct, Neuroforaminal stenosis of s pine M99.89 [facility] [address] [id number] [address] [place] [address] Sep, Neuroforaminal stenosis of s pine M99.89 [facility] [address] [id number] [address] [place] [address] Sep, [facility] [address] [id number] [address] [place] [id number] August, [facility] [address] [id number] [address] [place] [address] August, Neck pain M54.2 and Neurofor aminal stenosis of spine M99.89 [facility] [address] [id number] [address] [place] [address] August, Routine gynecological examin ation Z01.419 and Screening breast examination Z12.39 [facility] [address] [id number] [address] [place] [address] Jul, [facility] [address] [id number] [address] [place] [address] Jul, [facility] [address] [id number] [address] [place] [address] Jul, Neuroforaminal stenosis of s pine M99.89 [facility] [address] [id number] [address] [place] [address] Jul, [facility] [address] [id number] [address] [place] [address] Jul, Neuroforaminal stenosis of l umbar 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 [facility] [address] [id number] [address] [place] [address] Jul, [facility] [address] [id number] [address] [place] [address] Jul, [facility] [address] [id number] [address] [place] [id number] Jun, Neuroforaminal stenosis of ayla garcia M99.89 [facility] [address] [id number] [address] [place] [id number] Jun, Uterine leiomyoma, unspecifi ed location D25.9 and Allergic reaction caused by a drug, initial encounter T78.40XA [facility] [address] [facility] [id number] [place] [id number] Jun, [facility] [address] [facility] [id number] [place] [phone] May, UTI symptoms R39.9 and Pain of right sacroiliac joint M53.3 [place] [address] [facility] [id number] [place] [id number] May, Neuroforaminal stenosis of ayla garcia M99.89 [facility] [address] [facility] [id number] [place] [id number] May, [facility] [address] [facility] [id number] [place] [id number] May, Acute mucoid otitis media of left ear H65.112 and Acute non- recurrent maxillary sinusitis J01.00 [place] [facility] [id number] [place] [id number] May, Acute bacterial conjunctivit is of both eyes H10.33 ; Left arm pain M79.602 and Hypokalemia E87.6 [facility] [address] [facility] [id number] [place] [id number] Apr, [place] [address] [id number] [address] [place] [id number] Apr, Neuroforaminal stenosis of s pine M99.89 ; Neck pain M54.2 ; Chronic pain due to trauma G89.21 ; Mixed hyperlipidemia E78.2 ; Essential hypertension I10 and Hypokalemia E87.6 [facility] [address] [id number] [address] [place] [id number] Mar, Oral candidiasis B37.0 ; Nathaniel roforaminal stenosis of spine M99.89 ; Neck pain M54.2 and Chronic pain due to trauma G89.21 [facility] [address] [id number] [address] [place] [id number] Feb, [facility] [address] [id number] [address] [place] [phone] Feb, [facility] [address] [facility] [id number] [place] [id number] Feb, UTI (urinary tract infection ) N39.0 [facility] [address] [id number] [address] [place] [id number] Feb, Dysuria R30.0 [facility] [facility] [address] [facility] [id number] [place] [address] Feb, Dysuria R30.0 [facility] [address] [id number] [address] [place] [address] Feb, Neuroforaminal stenosis of s pine M99.89 ; Neck pain M54.2 ; Essential hypertension I10 ; Chronic pain due to trauma G89.21 ; Dysuria R30.0 ; Abnormal MRI, shoulder R93.8 and Acute cystitis without hematuria N30.00 [facility] [address] [id number] [address] [place] [address] Jan, [facility] [address] [id number] [address] [place] [address] Jan, [facility] [address] [id number] [address] [place] [address] Jan, [facility] [address] [id number] [address] [place] [address] Jan, Abnormal MRI R93.8 [facility] [address] [id number] [address] [place] [address] 29 Dec, 2015 [facility] [address] [id number] [address] [place] [address] 15 Dec, 2015 Acute pain of left shoulder M25.512 [facility] [address] [id number] [address] [place] [address] 09 Dec, 2015 [facility] [address] [id number] [address] [place] [address] 08 Dec, 2015 [facility] [address] [id number] [address] [place] [address] 07 Dec, 2015 Acute pain of left shoulder M25.512 [facility] [address] [id number] [address] [place] [address] Nov, [facility] [address] [id number] [address] [place] [address] Nov, Neuroforaminal stenosis of s pine M99.89 ; Neck pain M54.2 ; Abnormal mammogram R92.8 ; Essential hypertension I10 and Chronic pain due to trauma G89.21 [facility] [address] [id number] [address] [place] [address] Nov, [facility] [address] [id number] [address] [place] [address] Oct, Acute stress disorder F43.0 [facility] [address] [id number] [address] [place] [address] Oct, [facility] [address] [id number] [address] [place] [address] Oct, [facility] [address] [id number] [address] [place] [address] Oct, [facility] [address] [id number] [address] [place] [address] Sep, [facility] [address] [id number] [address] [place] [address] August, [facility] [address] [id number] [address] [place] [address] Jul, Neuroforaminal stenosis of s pine M99.89 ; Neck pain M54.2 ; Abnormal mammogram R92.8 and Essential hypertension I10 [facility] [address] [id number] [address] [place] [address] Jul, [facility] [address] [id number] [address] [place] [address] Jul, [facility] [address] [id number] [address] [place] [address] Jul, Abnormal mammogram R92.8 [facility] [address] [id number] [address] [place] [address] Jul, [facility] [address] [id number] [address] [place] [address] Jul, UTI (urinary tract infection ) N39.0 [facility] [address] [id number] [address] [place] [address] Jul, Dysuria R30.0 [facility] [address] [id number] [address] [place] [address] Jun, [facility] [address] [id number] [address] [place] [address] Jun, [facility] [address] [id number] [address] [place] [address] Jun, Hypokalemia E87.6 and Hematu martina R31.9 [facility] [address] [id number] [address] [place] [address] Jun, Hypokalemia E87.6 [place] [address] [place] [id number] [address] [place] [address] Jun, [place] [address] [address] Jun, Hypokalemia E87.6 [place] [address] [address] Jun, Hypokalemia E87.6 [place] [address] [address] 15 Jun, 2015 Neuroforaminal stenosis of s pine M99.89 ; Hypokalemia E87.6 ; Neck pain M54.2 ; Essential hypertension I10 ; Mixed hyperlipidemia E78.2 and Screening breast examination Z12.39 [place] [address] [address] 08 Jun, 2015 Dysuria R30.0 ; UTI (urinary tract infection) N39.0 and Hematuria R31.9 [place] [address] [address] May, [place] [address] [address] 18 May, 2015 High risk sexual behavior Z7 2.51 ; Hypokalemia E87.6 ; Neuroforaminal stenosis of spine M99.89 ; Neck pain M54.2 ; Essential hypertension I10 ; Mixed hyperlipidemia E78.2 ; STD exposure Z20.2 and Concern about STD in female without diagnosis Z71.1 [place] [address] [place] [id number] [address] [place] [address] 16 May, 2015 Neuroforaminal stenosis of s pine M99.89 ; Neck pain M54.2 ; Hypokalemia E87.6 ; Essential hypertension I10 and Mixed hyperlipidemia E78.2 [place] [address] [place] [id number] [address] [place] [address] May, [facility] [address] [address] 08 May, 2015 High risk sexual behavior Z7 2.51 ; STD exposure Z20.2 and Concern about STD in female without diagnosis Z71.1 [facility] [address] [place] [id number] [address] [place] [address] 05 May, 2015 [facility] [address] [address] Apr, Neuroforaminal stenosis of ayla garcia M99.89 ; Mixed hyperlipidemia E78.2 ; Essential hypertension I10 and Hypokalemia E87.6 [place] [address] [address] Mar, [place] [address] [address] Mar, Hypokalemia E87.6 [place] [address] [address] Mar, Neuroforaminal stenosis of s jose M99.89 ; Mixed hyperlipidemia E78.2 ; Neck pain M54.2 ; Essential hypertension I10 ; Abnormal fasting glucose R73.09 ; Hypokalemia E87.6 and Constipation K59.00 [place] [address] [place] [id number] [address] [place] [address] Feb, Neuroforaminal stenosis of s jose M99.89 ; Mixed hyperlipidemia E78.2 ; Neck pain M54.2 ; Essential hypertension I10 ; Abnormal fasting glucose R73.09 ; Hypokalemia E87.6 and Constipation K59.00 [place] [address] [place] [id number] [address] [place] [address] Feb, Elevated fasting blood sugar R73.01 [place] [address] [address] Feb, Elevated fasting blood sugar R73.01 [place] [address] [address] Feb, Hair loss L65.9 [facility] [address] [facility] [id number] [place] [address] Feb, Sinusitis J32.9 ; Essential hypertension I10 and Hair loss L65.9 [facility] [address] [id number] [address] [place] [address] Jan, [facility] [address] [facility] [id number] [place] [address] Jan, Essential hypertension I10 ; Neuroforaminal stenosis of spine M99.89 ; Neck pain M54.2 ; Mixed hyperlipidemia E78.2 and Anxiety F41.9 [facility] [address] [facility] [id number] [place] [address] Jan, [place] [address] [place] [id number] [address] [place] [address] Jan, Mixed hyperlipidemia E78.2 ; Essential (primary) hypertension I10 ; Strain of muscle, fascia and tendon at neck level, subsequent encounter S16.1XXD and Tension-type headache, unspecified, not intractable G44.209 [place] [address] [facility] [id number] [place] [address] Dec, Lumbar back pain 724.2 and N euroforaminal stenosis of spine 724.00 [place] [address] [place] [id number] [address] [place] [address] Nov, [place] [address] [facility] [id number] [place] [address] Nov, Lumbar back pain 724.2 and N euroforaminal stenosis of spine 724.00 [place] [address] [place] [id number] [address] [place] [address] Nov, Edema 782.3 ; Lumbar back pa in 724.2 ; Essential hypertension, benign 401.1 ; Hyperlipemia 272.4 ; Neuroforaminal stenosis of spine 724.00 and Post-concussion headache 339.20 [place] [address] [facility] [id number] [place] [address] Nov, [facility] [address] [id number] [address] [place] [address] Nov, [facility] [address] [id number] [address] [place] [address] Oct, Essential hypertension, sheridan gn 401.1 [facility] [address] [id number] [address] [place] [address] Oct, Edema 782.3 ; Lumbar back pa in 724.2 ; Essential hypertension, benign 401.1 ; Hyperlipemia 272.4 ; Neuroforaminal stenosis of spine 724.00 and Post-concussion headache 339.20 [facility] [address] [id number] [address] [place] [address] Oct, [place] [address] [facility] [id number] [place] [address] Oct, Edema 782.3 [facility] [address] [id number] [address] [place] [address] Oct, Lumbar back pain 724.2 [place] [address] [facility] [id number] [place] [address] Oct, Cervicalgia 723.1 ; Lumbar b ack pain 724.2 and High risk medication use V58.69 [place] [address] [facility] [id number] [place] [address] Sep, [facility] [address] [id number] [address] [place] [address] Sep, Lumbar strain 847.2 [place] [address] [facility] [id number] [place] [address] August, Edema 782.3 and Eustachian t ube dysfunction 381.81 [facility] [address] [facility] [id number] [place] [address] August, [place] [address] [id number] [address] [place] [address] August, Eustachian tube dysfunction 381.81 [facility] [address] [id number] [address] [place] [address] Jul, Otalgia 388.70 and Otitis me jonathon 382.9 [facility] [address] [id number] [address] [place] [address] Jul, [facility] [address] [id number] [address] [place] [address] Jul, [facility] [address] [id number] [address] [place] [address] Jul, [facility] [address] [id number] [address] [place] [address] Jul, [facility] [address] [id number] [address] [place] [address] Jul, [facility] [address] [id number] [address] [place] [address] Jun, [facility] [address] [id number] [address] [place] [address] Jun, [facility] [address] [id number] [address] [place] [address] Jun, [facility] [address] [id number] [address] [place] [address] May, [facility] [address] [id number] [address] [place] [address] May, [facility] [address] [id number] [address] [place] [address] May, [facility] [address] [id number] [address] [place] [address] May, [facility] [address] [id number] [address] [place] [address] May, [facility] [address] [id number] [address] [place] [address], [place] [address] May, [facility] [address] [id number] [address] [place] [address], [place] [address] May, [facility] [address] [id number] [address] [place] [address], [place] [address] May, [facility] [address] [id number] [address] [place] [address], [place] [address] May, [facility] [address] [id number] [address] [place] [address], [place] [address] May, [facility] [address] [id number] [address] [place] [address], [place] [address] Apr, [facility] [address] [id number] [address] [place] [address], [place] [address] Apr, [facility] [address] [id number] [address] [place] [address], [place] [address] Apr, [facility] [address] [id number] [address] [place] [address], [place] [address] Apr, [facility] [address] [id number] [address] [place] [address], [place] [address] Apr, [facility] [address] [id number] [address] [place] [address], [place] [address] Apr, [facility] [address] [id number] [address] [place] [address], [place] [address] Apr, [facility] [address] [id number] [address] [place] [address], [place] [address] Apr, [facility] [address] [id number] [address] [place] [address], [place] [address] Apr, [facility] [address] [id number] [address] [place] [address], [place] [address] Apr, [facility] [address] [id number] [address] [place] [address], [place] [address] Apr, [facility] [address] [id number] [address] [place] [address], [place] [address] Apr, [facility] [address] [id number] [address] [place] [address], [place] [address] Apr, [facility] [address] [id number] [address] [place] [address], [place] [address] Apr, [facility] [address] [id number] [address] [place] [address], [place] [address] Apr, [facility] [address] [id number] [address] [place] [address], [place] [address] Mar, [facility] [address] [id number] [address] [place] [address], [place] [address] Mar, [facility] [address] [id number] [address] [place] [address], [place] [address] Mar, [facility] [address] [id number] [address] [place] [address], [place] [address] Mar, [facility] [address] [id number] [address] [place] [address], [place] [address] Feb, [facility] [address] [id number] [address] [place] [address], [place] [address] Feb, [facility] [address] [id number] [address] [place] [address], [place] [address] Feb, [facility] [address] [id number] [address] [place] [address], [place] [address] Feb, [facility] [address] [id number] [address] [place] [address], [place] [address] Jan, [facility] [address] [id number] [address] [place] [address], [place] [address] Jan, [facility] [address] [id number] [address] [place] [address], [place] [address] Jan, [facility] [address] [id number] [address] [place] [address], [place] [address] Jan, [facility] [address] [id number] [address] [place] [address], [place] [address] Jan, [facility] [address] [id number] [address] [place] [address], [place] [address] Jan, [facility] [address] [id number] [address] [place] [address], [place] [address] Jan, [facility] [address] [id number] [address] [place] [address], [place] [address] Jan, [facility] [address] [id number] [address] [place] [address], [place] [address] Dec, [facility] [address] [id number] [address] [place] [address], [place] [address] Dec, [facility] [address] [id number] [address] [place] [address], [place] [address] Dec, [facility] [address] [id number] [address] [place] [address], [place] [address] Dec, [facility] [address] [id number] [address] [place] [address], [place] [address] Oct, [facility] [address] [id number] [address] [place] [address], [place] [address] Oct, [facility] [address] [id number] [address] [place] [address], [place] [address] Oct, [facility] [address] [id number] [address] [place] [address], [place] [address] Oct, [facility] [address] [id number] [address] [place] [address], [place] [address] Oct, [facility] [address] [id number] [address] [place] [address], [place] [address] Oct, 2013 [facility] [address] [id number] [address] [place] [address], [place] [address] Oct, [facility] [address] [id number] [facility] [place] [address] Oct, [facility] [address] [id number] [address] [place] [address], [place] [address] Sep, [facility] [address] [id number] [address] [place] [address], [place] [address] Sep, [facility] [address] [id number] [address] [place] [address], [place] [address] Sep, [facility] [address] [id number] [address] [place] [address], [place] [address] Sep, [facility] [address] [id number] [address] [place] [address], [place] [address] Sep, [facility] [address] [id number] [address] [place] [address], [place] [address] Sep, [facility] [address] [id number] [address] [place] [address], [place] [address] Sep, [facility] [address] [id number] [address] [place] [address], [place] [address] Sep, [facility] [address] [id number] [address] [place] [address], [place] [address] Sep, [facility] [address] [id number] [address] [place] [address], [place] [address] Sep, [facility] [address] [id number] [address] [place] [address], [place] [address] August, [facility] [address] [id number] [address] [place] [address], [place] [address] August, [facility] [address] [id number] [address] [place] [address], [place] [address] August, [facility] [address] [id number] [address] [place] [address], [place] [address] August, [facility] [address] [id number] [facility] [place] [address] August, [facility] [address] [id number] [address] [place] [address], [place] [address] August, [facility] [address] [id number] [address] [place] [address], [place] [address] August, [facility] [address] [id number] [address] [place] [address], [place] [address] August, [facility] [address] [id number] [address] [place] [address], [place] [address] August, [facility] [address] [id number] [address] [place] [address], [place] [address] August, [facility] [address] [id number] [address] [place] [address], [place] [address] August, [facility] [address] [id number] [address] [place] [address], [place] [address] August, [facility] [address] [id number] [address] [place] [address], [place] [address] Jul, [facility] [address] [id number] [address] [place] [address], [place] [address] Jul, [facility] [address] [id number] [address] [place] [address], [place] [address] Jul, [facility] [address] [id number] [address] [place] [address], [place] [address] Jul, [facility] [address] [id number] [address] [place] [address], [place] [address] Jul, [facility] [address] [id number] [address] [place] [address], [place] [address] Jul, [facility] [address] [id number] [address] [place] [address], [place] [address] Jun, [facility] [address] [id number] [address] [place] [address], [place] [address] Jun, [facility] [address] [id number] [address] [place] [address], [place] [address] May, [facility] [address] [id number] [address] [place] [address], [place] [address] May, [facility] [address] [id number] [address] [place] [address], [place] [address] Apr, [facility] [address] [id number] [address] [place] [address], [place] [address] Apr, [facility] [address] [id number] [address] [place] [address], [place] [address] Apr, [facility] [address] [id number] [address] [place] [address], [place] [address] Apr, [facility] [address] [id number] [address] [place] [address], [place] [address] Apr, [facility] [address] [id number] [address] [place] [address], [place] [address] Apr, [facility] [address] [id number] [address] [place] [address], [place] [address] Apr, [facility] [address] [id number] [address] [place] [address], [place] [address] Apr, [facility] [address] [id number] [address] [place] [address], [place] [address] Apr, [facility] [address] [id number] [address] [place] [address], [place] [address] Apr, [facility] [address] [id number] [address] [place] [address], [place] [address] Apr, [facility] [address] [id number] [address] [place] [address], [place] [address] Apr, [facility] [address] [id number] [address] [place] [address], [place] [address] Apr, [facility] [address] [id number] [address] [place] [address] Mar, [facility] [address] [id number] [address] [place] [address], [place] [address] Mar, [facility] [address] [id number] [address] [place] [address] Mar, [facility] [address] [id number] [address] [place] [address], [place] [address] Mar, [facility] [address] [id number] [address] [place] [address], [place] [address] Feb, [facility] [address] [id number] [address] [place] [address], [place] [address] Feb, [facility] [address] [id number] [address] [place] [address], [place] [address] Feb, [facility] [address] [id number] [address] [place] [address] Feb, [facility] [address] [id number] [address] [place] [address], [place] [address] Jan, [facility] [address] [id number] [address] [place] [address] Jan, 2013 [facility] [address] [id number] [address] [place] [address] Jan, [facility] [address] [id number] [address] [place] [address] Jan, [facility] [address] [id number] [address] [place] [address] Jan, [facility] [address] [id number] [address] [place] [address] Jan, [facility] [address] [id number] [address] [place] [address] Jan, [facility] [address] [id number] [address] [place] [address] 09 Jan, 2013 [facility] [address] [id number] [address] [place] [address], [place] [address] Jan, [facility] [address] [id number] [address] [place] [address], [place] [address] 26 Dec, 2012 [facility] [address] [id number] [address] [place] [address], [place] [address] 16 Dec, 2012 [facility] [address] [id number] [address] [place] [address], [place] [address] 16 Dec, 2012 [facility] [address] [id number] [address] [place] [address], [place] [address] 13 Dec, 2012 [facility] [address] [id number] [address] [place] [address], [place] [address] Nov, [facility] [address] [id number] [address] [place] [address], [place] [address] Nov, [facility] [address] [id number] [address] [place] [address], [place] [address] Nov, [facility] [address] [id number] [address] [place] [address], [place] [address] Nov, [facility] [address] [id number] [address] [place] [address], [place] [address] Oct, [facility] [address] [id number] [address] [place] [address], [place] [address] Sep, [facility] [address] [id number] [address] [place] [address], [place] [address] August, [facility] [address] [id number] [address] [place] [address], [place] [address] August, [facility] [address] [id number] [address] [place] [address], [place] [address] August, [facility] [address] [id number] [address] [place] [address], [place] [address] August, [facility] [address] [id number] [address] [place] [address], [place] [address] 15 Aug, 2012 [facility] [address] [id number] [address] [place] [address], [place] [address] August, [facility] [address] [id number] [address] [place] [address], [place] [address] August, [facility] [address] [id number] [address] [place] [address], [place] [address] August, [facility] [address] [id number] [address] [place] [address], [place] [address] August, [facility] [address] [id number] [address] [place] [address], [place] [address] August, [facility] [address] [id number] [address] [place] [address], [place] [address] August, [facility] [address] [id number] [address] [place] [address], [place] [address] August, [facility] [address] [id number] [address] [place] [address], [place] [address] Jul, [facility] [address] [id number] [address] [place] [address], [place] [address] Jul, [facility] [address] [id number] [address] [place] [address], [place] [address] 18 Jul, 2012 [facility] [address] [id number] [address] [place] [address], [place] [address] 15 Jul, 2012 [facility] [address] [id number] [address] [place] [address], [place] [address] Jul, [facility] [address] [id number] [address] [place] [address], [place] [address] Jul, [facility] [address] [id number] [address] [place] [address], [place] [address] 04 Jul, 2012 [facility] [address] [id number] [address] [place] [address], [place] [address] Jul, [facility] [address] [id number] [address] [place] [address], [place] [address] Jul, [facility] [address] [id number] [address] [place] [address], [place] [address] Jul, [facility] [address] [id number] [address] [place] [address], [place] [address] Jul, [facility] [address] [id number] [address] [place] [address], [place] [address] Jun, [facility] [address] [id number] [address] [place] [address], [place] [address] Jun, [facility] [address] [id number] [address] [place] [address], [place] [address] Jun, [facility] [address] [id number] [address] [place] [address], [place] [address] Jun, [facility] [address] [id number] [address] [place] [address], [place] [address] May, [facility] [address] [id number] [address] [place] [address], [place] [address] 14 May, 2012 [facility] [address] [id number] [address] [place] [address], [place] [address] 05 May, 2012 [facility] [address] [id number] [address] [place] [address], [place] [address] May, [facility] [address] [id number] [address] [place] [address], [place] [address] May, [facility] [address] [id number] [address] [place] [address], [place] [address] May, [facility] [address] [id number] [address] [place] [address], [place] [address] Apr, [facility] [address] [id number] [address] [place] [address], [place] [address] Apr, [facility] [address] [id number] [address] [place] [address], [place] [address] Apr, [facility] [address] [id number] [address] [place] [address], [place] [address] Apr, [facility] [address] [id number] [address] [place] [address], [place] [address] 15 Mar, 2012 [facility] [address] [id number] [address] [place] [address], [place] [address] 14 Mar, 2012 [facility] [address] [id number] [address] [place] [address], [place] [address] Mar, [facility] [address] [id number] [address] [place] [address], [place] [address] Mar, [facility] [address] [id number] [address] [place] [address], [place] [address] Mar, [facility] [address] [id number] [address] [place] [address], [place] [address] Mar, [facility] [address] [id number] [address] [place] [address], [place] [address] Mar, [facility] [address] [id number] [address] [place] [address], [place] [address] Feb, [facility] [address] [id number] [address] [place] [address], [place] [address] Feb, [facility] [address] [id number] [address] [place] [address], [place] [address] Feb, [facility] [address] [id number] [address] [place] [address], [place] [address] Feb, [facility] [address] [id number] [address] [place] [address], [place] [address] Jan, [facility] [address] [id number] [address] [place] [address], [place] [address] Jan, [facility] [address] [id number] [address] [place] [address], [place] [address] Jan, [facility] [address] [id number] [address] [place] [address] [place] [address] Jan, [facility] [address] [id number] [address] [place] [address], [place] [address] Jan, [facility] [address] [id number] [address] [place] [address], [place] [address] Jan, [facility] [address] [id number] [address] [place] [address], [place] [address] Dec, [facility] [address] [id number] [address] [place] [address], [place] [address] Dec, [facility] [address] [id number] [address] [place] [address], [place] [address] Nov, [facility] [address] [id number] [address] [place] [address], [place] [address] Sep, [facility] [address] [id number] [address] [place] [address], [place] [address] August, [facility] [address] [id number] [address] [place] [address], [place] [address] August, [facility] [address] [id number] [address] [place] [address], [place] [address] August, [facility] [address] [id number] [address] [place] [address], [place] [address] August, [facility] [address] [id number] [address] [place] [address], [place] [address] August, [facility] [address] [id number] [address] [place] [address], [place] [address] Jun, [facility] [address] [id number] [address] [place] [address], [place] [address] Jun, [facility] [address] [id number] [address] [place] [address], [place] [address] Apr, [facility] [address] [id number] [address] [place] [address], [place] [address] Apr, [facility] [address] [id number] [address] [place] [address], [place] [address] 23 Mar, 2011 [facility] [address] [id number] [address] [place] [address], [place] [address] 22 Feb, 2011 [facility] [address] [id number] [address] [place] [address], [place] [address] 14 Feb, 2011 [facility] [address] [id number] [address] [place] [address], [place] [address] 14 Feb, 2011 [facility] [address] [id number] [address] [place] [address], [place] [address] 17 Jan, 2011 [facility] [address] [id number] [address] [place] [address], [place] [address] 15 Jan, 2011 [facility] [address] [id number] [address] [place] [address], [place] [address] 15 Jan, 2011 [facility] [address] [id number] [address] [place] [address], [place] [address] 14 Jan, 2011 [facility] [address] [id number] [address] [place] [address], [place] [address] 15 May, 2010 [facility] [address] [id number] [address] [place] [address], [place] [address] 04 Mar, 2010 [facility] [address] [id number] [address] [place] [address], [place] [address] Oct, [facility] [address] [id number] [address] [place] [address], [place] [address] Sep, [facility] [address] [id number] [address] [place] [address], [place] [address] Mar, [facility] [address] [id number] [address] [place] [address], [place] [address] Jan, [facility] [address] [id number] [address] [place] [address], [place] [address] Jan, [facility] [address] [id number] [address] [place] [address] May, IMMUNIZATIONS No Known Immunizations SOCIAL HISTORY [...]
--- OUTSIDE RECORDS SUMMARY | 2019-11-23 06:16 | XMS REPORT ---
Author Author Liana Fuchs Organization [facility] Address [address] [place] [address] Care Team Providers Care Finisher Brush Name Role Phone PACHECO Fuchs Unavailable PROBLEMS Type Condition ICD9-CM Code [id number] Code Onset Dates Condition S tatus SNOMED Code Problem Anxiety F41.9 Active 53157439 Problem Neck pain M54.2 Active 52104387 Problem Neuroforaminal stenosis of spine M99.89 Active 100952534874 Problem Hematuria, unspecified type R31.9 Ac tive 56893372 Problem Seasonal allergies J30.2 Active 4 55561643 Problem Abnormal glucose R73.09 Active 102 952175 Problem Rhinosinusitis J32.9 Active 79619 4004 Problem Abnormal renal ultrasound R93.429 Acti ve [id number] Problem Essential hypertension I10 Active 95139194 Problem Mixed hyperlipidemia E78.2 Active 94303042 Problem Hypokalemia E87.6 Active 95721899 Problem Chronic pain due to trauma G89.21 Act juanis [id number] ALLERGIES No Information ENCOUNTERS Encounter Location Date Diagnosis [place] [address] [facility] [id number] [address] [place] [phone] Jul, [facility] [address] [facility] [id number] [address] [place] [phone] Jun, Hypokalemia E87.6 [facility] [address] [facility] [id number] [address] [place] [phone] Jun, [facility] [address] [facility] [id number] [address] [place] [phone] Jun, Neuroforaminal stenosis of s pine M99.89 [facility] [address] [facility] [id number] [address] [place] [phone] Jun, Lateral epicondylitis, left elbow M77.12 and Medial epicondylitis, left elbow M77.02 [place] [address] [id number] [address] [place] [id number] 16 Jun, 2019 Foraminal stenosis of lumbar region M48.061 ; Segmental dysfunction of thoracic region M99.02 ; Segmental dysfunction of lumbar region M99.03 and Segmental dysfunction of sacral region M99.04 [place] [address] [id number] [address] [place] [id number] May, Left elbow pain M25.522 [place] [address] [id number] [address] [place] [phone] May, [place] [address] [id number] [address] [place] [phone] May, Left elbow pain M25.522 [place] [address] [id number] [address] [place] [phone] May, Neuroforaminal stenosis of s pine M99.89 [place] [address] [id number] [address] [place] [id number] May, Rhinosinusitis J32.9 ; Left elbow pain M25.522 and Neck pain M54.2 [place] [address] [id number] [address] [place] [phone] 14 May, 2019 Lateral epicondylitis of lef t elbow M77.12 [place] [address] [id number] [address] [place] [phone] Apr, Neuroforaminal stenosis of s pine M99.89 [place] [address] [id number] [address] [place] [phone] Apr, Essential hypertension I10 a nd Mixed hyperlipidemia E78.2 [place] [address] [id number] [address] [place] [phone] Mar, Neuroforaminal stenosis of s pine M99.89 [place] [address] [facility] [id number] [address] [place] [phone] Mar, Epicondylitis, lateral, left M77.12 [facility] [address] [facility] [id number] [address] [place] [phone] Mar, [facility] [address] [facility] [id number] [address] [place] [phone] Mar, Neuroforaminal stenosis of s pine M99.89 [facility] [address] [facility] [id number] [address] [place] [phone] Feb, Neuroforaminal stenosis of s pine M99.89 ; Essential hypertension I10 ; Mixed hyperlipidemia E78.2 ; Encounter for immunization Z23 and Seasonal allergies J30.2 [facility] [address] [facility] [id number] [address] [place] [id number] Jan, Neuroforaminal stenosis of s pine M99.89 [place] [address] [facility] [id number] [address] [place] [phone] Dec, Neuroforaminal stenosis of s pine M99.89 [place] [address] [facility] [id number] [address] [place] [phone] Dec, Neuroforaminal stenosis of s pine M99.89 [facility] [address] [facility] [id number] [address] [place] [phone] Nov, [facility] [address] [facility] [id number] [address] [place] [phone] Nov, Neuroforaminal stenosis of s pine M99.89 [facility] [address] [facility] [id number] [address] [place] [phone] Nov, Acute non-recurrent maxillar y sinusitis J01.00 [facility] [address] [facility] [id number] [address] [place] [phone] Oct, Hypokalemia E87.6 [facility] [address] [facility] [id number] [address] [place] [phone] Oct, Wasp sting, undetermined int ent, initial encounter T63.464A and Cellulitis of left lower extremity L03.116 [place] [address] [id number] [address] [place] [phone] Oct, Neuroforaminal stenosis of s pine M99.89 [place] [address] [id number] [address] [place] [phone] Sep, [place] [address] [id number] [address] [place] [phone] Sep, [place] [address] [id number] [address] [place] [id number] 18 Sep, 2018 Routine screening for STI (s exually transmitted infection) Z11.3 [place] [address] [id number] [address] [place] [phone] 14 Sep, 2018 Routine screening for STI (s exually transmitted infection) Z11.3 ; Well woman exam with routine gynecological exam Z01.419 and Breast cancer screening Z12.39 [place] [address] [id number] [address] [place] [phone] 10 Sep, 2018 Neuroforaminal stenosis of s pine M99.89 [place] [address] [id number] [address] [place] [phone] August, Neuroforaminal stenosis of s pine M99.89 [place] [address] [facility] [id number] [address] [place] [phone] August, Neuroforaminal stenosis of s pine M99.89 ; Chronic pain due to trauma G89.21 and Mixed hyperlipidemia E78.2 [place] [address] [id number] [address] [place] [phone] 16 Jul, 2018 Viral upper respiratory illn ess J06.9 and Acute non-recurrent frontal sinusitis J01.10 [place] [address] [id number] [address] [place] [phone] 15 Jul, 2018 Congestion of nasal sinus R0 9.81 [place] [address] [id number] [address] [place] [phone] Jul, Neuroforaminal stenosis of s pine M99.89 and Essential hypertension I10 [facility] [address] [id number] [address] [place] [phone] May, Neuroforaminal stenosis of s pine M99.89 [facility] [address] [id number] [address] [place] [id number] May, [facility] [address] [id number] [address] [place] [phone] May, Congestion of nasal sinus R0 9.81 [facility] [address] [facility] [id number] [address] [place] [phone] May, [facility] [address] [facility] [id number] [address] [place] [phone] Apr, Neuroforaminal stenosis of s pine M99.89 [place] [address] [facility] [id number] [address] [place] [phone] Apr, Neuroforaminal stenosis of s pine M99.89 and Chronic pain due to trauma G89.21 [facility] [address] [facility] [id number] [address] [place] [phone] Mar, UTI (urinary tract infection ) N39.0 [facility] [address] [facility] [id number] [address] [place] [phone] Mar, Vertigo R42 [facility] [address] [facility] [id number] [address] [place] [phone] Mar, Neuroforaminal stenosis of s pine M99.89 [facility] [address] [id number] [address] [place] [phone] Feb, Extensor tendon disruption M 67.89 [facility] [address] [facility] [id number] [address] [place] [phone] Feb, Neuroforaminal stenosis of s pine M99.89 and High risk medication use Z79.899 [place] [place] [id number] [address] [place] [phone] Jan, Hypokalemia E87.6 [place] [address] [facility] [id number] [address] [place] [phone] Jan, Flank pain R10.9 and Acute r ight-sided low back pain without sciatica M54.5 [place] [address] [facility] [id number] [address] [place] [phone] Jan, Hypokalemia E87.6 [place] [address] [facility] [id number] [address] [place] [phone] Jan, [place] [address] [place] [id number] [place] [phone] Jan, URI, acute J06.9 [place] [address] [place] [id number] [place] [phone] Jan, Neuroforaminal stenosis of s pine M99.89 [place] [address] [place] [id number] [place] [phone] 13 Dec, 2017 Lateral epicondylitis, right elbow M77.11 [place] [address] [place] [id number] [place] [phone] 11 Dec, 2017 Allergic rhinitis due to monica rosalnia, unspecified seasonality J30.1 and Allergic conjunctivitis of both eyes H10.13 [place] [address] [place] [id number] [address] [place] [phone] 10 Dec, 2017 Neuroforaminal stenosis of s pine M99.89 [place] [address] [place] [id number] [address] [place] [phone] 06 Dec, 2017 Mixed hyperlipidemia E78.2 [place] [address] [place] [id number] [address] [place] [id number] 05 Dec, 2017 Abnormal glucose R73.09 ; Ab normal renal ultrasound R93.429 ; Dysuria R30.0 ; Cystitis without hematuria N30.90 ; Hypokalemia E87.6 ; Mixed hyperlipidemia E78.2 and Hematuria, unspecified type R31.9 [place] [address] [facility] [id number] [place] [phone] Nov, Hypokalemia E87.6 ; Mixed hy perlipidemia E78.2 and Hematuria, unspecified type R31.9 [place] [address] [facility] [id number] [address] [place] [phone] Nov, [place] [address] [id number] [address] [place] [phone] Nov, Hypokalemia E87.6 [place] [address] [facility] [id number] [address] [place] [phone] Nov, [place] [address] [place] [id number] [place] [phone] Nov, Abnormal renal ultrasound R9 3.429 [place] [address] [place] [id number] [address] [place] [phone] Nov, Abnormal renal ultrasound R9 3.429 [place] [address] [place] [id number] [place] [address] Nov, Hematuria, unspecified type R31.9 and 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 [place] [address] [phone] Nov, Dysuria R30.0 [place] [address] [place] [id number] [address] [place] [phone] Oct, Lateral epicondylitis, right elbow M77.11 [place] [address] [place] [id number] [place] [phone] Oct, Neuroforaminal stenosis of s pine M99.89 ; Visit for TB skin test Z11.1 and Essential hypertension I10 [place] [address] [place] [id number] [address] [place] [phone] Oct, [place] [address] [id number] [address] [place] [phone] 12 Oct, 2017 Neuroforaminal stenosis of s pine M99.89 [place] [address] [id number] [address] [place] [id number] 10 Oct, 2017 Visit for TB skin test Z11.1 [place] [address] [id number] [address] [place] [phone] 05 Oct, 2017 Cystitis without hematuria N 30.90 [place] [address] [id number] [address] [place] [phone] 28 Sep, 2017 Screening breast examination Z12.39 [place] [address] [id number] [address] [place] [phone] 26 Sep, 2017 Dysuria R30.0 and Cystitis w ithout hematuria N30.90 [place] [address] [id number] [address] [place] [id number] 14 Sep, 2017 Essential hypertension I10 a nd 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 [place] [address] [id number] [address] [place] [id number] 04 Sep, 2017 Abnormal glucose R73.09 [place] [address] [facility] [id number] [address] [place] [phone] August, Lateral epicondylitis, right elbow M77.11 [place] [address] [facility] [id number] [address] [place] [phone] August, Screen for STD (sexually tra nsmitted disease) Z11.3 [place] [address] [id number] [address] [place] [phone] August, Neuroforaminal stenosis of s pine M99.89 ; Mixed hyperlipidemia E78.2 ; Elevated fasting glucose R73.01 ; Screening mammogram, encounter for Z12.31 and Encounter for well woman exam without gynecological exam Z00.00 [place] [address] [id number] [address] [place] [phone] August, Neuroforaminal stenosis of s jose M99.89 [facility] [address] [id number] [address] [place] [phone] August, Essential hypertension I10 ; Hypokalemia E87.6 and Mixed hyperlipidemia E78.2 [facility] [address] [id number] [address] [place] [phone] Jul, [facility] [address] [id number] [address] [place] [phone] Jul, Neuroforaminal stenosis of s jose M99.89 [facility] [address] [id number] [address] [place] [id number] Jul, Lateral epicondylitis, right elbow M77.11 [facility] [address] [id number] [address] [place] [phone] Jul, [facility] [address] [id number] [address] [place] [phone] Jun, High ankle sprain of right l ower extremity, initial encounter S93.431A [facility] [address] [id number] [address] [place] [id number] Jun, Essential hypertension I10 [facility] [address] [id number] [address] [place] [phone] Jun, [facility] [address] [id number] [address] [place] [phone] Jun, [facility] [address] [id number] [address] [place] [phone] Jun, Neuroforaminal stenosis of s jose M99.89 [facility] [address] [id number] [address] [place] [phone] Jun, Pain of right upper extremit y M79.601 and Essential hypertension I10 [facility] [address] [id number] [address] [place] [phone] Jun, [place] [address] [phone] Jun, Dysuria R30.0 ; Acute cystit is with hematuria N30.01 and Screen for STD (sexually transmitted disease) Z11.3 [place] [address] [address] May, Chronic pain due to trauma G 89.[address] [address] May, Essential hypertension I10 [address] [address] May, Neuroforaminal stenosis of s jose M99.[address] [address] Apr, Allergic reaction, initial e ncounter T78.40XA [address] [address] Apr, Low back pain, unspecified b ack pain laterality, unspecified chronicity, with sciatica presence unspecified M54.5 ; Acute cystitis with hematuria N30.01 ; 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 ; Bilateral acute serous otitis media, recurrence not specified H65.03 ; Mixed hyperlipidemia E78.2 ; Essential hypertension I10 ; Immunization counseling Z71.89 and Encounter for immunization Z23 [address] [address] Apr, Neck pain M54.[address] [address] Mar, Neuroforaminal stenosis of s pine M99.89 [place] [address] [address] Mar, Pharyngitis due to other org anism J02.[address] [address] Feb, Neuroforaminal stenosis of s pine M99.89 [facility] [address] [id number] [address] [place] [phone] Feb, UTI (urinary tract infection ) N39.0 [facility] [address] [id number] [address] [place] [id number] Feb, Recent urinary tract infecti on Z87.440 ; 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 ; Neck pain M54.2 ; Chronic pain due to trauma G89.21 and Recurrent UTI N39.0 [facility] [address] [id number] [address] [place] [id number] Feb, [facility] [address] [id number] [address] [place] [phone] Jan, Neuroforaminal stenosis of s pine M99.89 [facility] [address] [id number] [address] [place] [id number] Dec, Neuroforaminal stenosis of s pine M99.89 [facility] [address] [id number] [address] [place] [phone] Dec, Acute seasonal allergic rhin itis due to pollen J30.1 [facility] [address] [id number] [address] [place] [phone] Dec, [facility] [address] [id number] [address] [place] [id number] Dec, Acute seasonal allergic rhin itis, unspecified trigger J30.2 ; Allergic conjunctivitis of both eyes H10.13 and Dysfunction of both eustachian tubes H69.83 [facility] [address] [id number] [address] [place] [phone] Dec, [facility] [address] [id number] [address] [place] [phone] Dec, Nevus D22.9 [facility] [address] [id number] [address] [place] [phone] Nov, Chronic pain due to trauma G 89.21 and 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 [facility] [address] [id number] [address] [place] [phone] Nov, Neuroforaminal stenosis of s pine M99.89 ; Essential hypertension I10 ; Mixed hyperlipidemia E78.2 ; Hypokalemia E87.6 ; Neck pain M54.2 and Nevus D22.9 [facility] [address] [id number] [address] [place] [id number] Oct, Neuroforaminal stenosis of s pine M99.89 [facility] [address] [id number] [address] [place] [phone] Sep, Neuroforaminal stenosis of s pine M99.89 [facility] [address] [id number] [address] [place] [id number] Sep, [facility] [address] [id number] [address] [place] [phone] August, [facility] [address] [id number] [address] [place] [phone] August, Neck pain M54.2 and Neurofor aminal stenosis of spine M99.89 [facility] [address] [id number] [address] [place] [id number] August, Routine gynecological examin ation Z01.419 and Screening breast examination Z12.39 [facility] [address] [id number] [address] [place] [id number] Jul, [facility] [address] [id number] [address] [place] [phone] Jul, [facility] [address] [facility] [id number] [address] [place] [phone] Jul, Neuroforaminal stenosis of s pine M99.89 [facility] [address] [id number] [address] [place] [phone] Jul, [place] [address] [id number] [address] [place] [phone] Jul, Neuroforaminal stenosis of l umbar 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 [place] [address] [id number] [address] [place] [phone] Jul, [place] [address] [facility] [id number] [address] [place] [phone] Jul, [place] [address] [id number] [address] [place] [phone] Jun, Neuroforaminal stenosis of s jose M99.89 [place] [address] [facility] [id number] [address] [place] [id number] Jun, Uterine leiomyoma, unspecifi ed location D25.9 and Allergic reaction caused by a drug, initial encounter T78.40XA [place] [address] [facility] [id number] [address] [place] [phone] Jun, [place] [address] [facility] [id number] [address] [place] [phone] May, UTI symptoms R39.9 and Pain of right sacroiliac joint M53.3 [place] [address] [facility] [id number] [address] [place] [phone] May, Neuroforaminal stenosis of s jose M99.89 [place] [address] [facility] [id number] [address] [place] [id number] May, [place] [address] [facility] [id number] [address] [place] [phone] May, Acute mucoid otitis media of left ear H65.112 and Acute non- recurrent maxillary sinusitis J01.00 [place] [address] [facility] [id number] [address] [place] [phone] May, Acute bacterial conjunctivit is of both eyes H10.33 ; Left arm pain M79.602 and Hypokalemia E87.6 [place] [address] [address] [place] [id number] [address] [place] [id number] Apr, [place] [address] [address] [place] [id number] [address] [place] [id number] Apr, Neuroforaminal stenosis of s pine M99.89 ; Neck pain M54.2 ; Chronic pain due to trauma G89.21 ; Mixed hyperlipidemia E78.2 ; Essential hypertension I10 and Hypokalemia E87.6 [place] [address] [address] [place] [id number] [address] [place] [phone] Mar, Oral candidiasis B37.0 ; Nathaniel roforaminal stenosis of spine M99.89 ; Neck pain M54.2 and Chronic pain due to trauma G89.21 [place] [address] [address] [place] [id number] [address] [place] [phone] Feb, [place] [address] [place] [id number] [address] [place] [id number] Feb, [place] [address] [address] [place] [id number] [address] [place] [phone] Feb, UTI (urinary tract infection ) N39.0 [place] [address] [place] [id number] [address] [place] [phone] Feb, Dysuria R30.0 [place] [address] [place] [id number] [address] [place] [phone] Feb, Dysuria R30.0 [place] [address] [address] [place] [id number] [address] [place] [phone] 02 Feb, 2016 Neuroforaminal stenosis of s pine M99.89 ; Neck pain M54.2 ; Essential hypertension I10 ; Chronic pain due to trauma G89.21 ; Dysuria R30.0 ; Abnormal MRI, shoulder R93.8 and Acute cystitis without hematuria N30.00 [place] [address] [place] [id number] [address] [place] [phone] Jan, [place] [address] [place] [id number] [address] [place] [phone] Jan, [facility] [address] [id number] [address] [place] [id number] Jan, [facility] [address] [id number] [address] [place] [phone] Jan, Abnormal MRI R93.8 [facility] [address] [id number] [address] [place] [phone] 29 Dec, 2015 [facility] [address] [id number] [address] [place] [address] 15 Dec, 2015 Acute pain of left shoulder M25.512 [facility] [address] [id number] [address] [place] [id number] 09 Dec, 2015 [facility] [address] [id number] [address] [place] [id number] 08 Dec, 2015 [facility] [address] [id number] [address] [place] [id number] 07 Dec, 2015 Acute pain of left shoulder M25.512 [facility] [address] [id number] [address] [place] [address] Nov, [facility] [address] [id number] [address] [place] [id number] 16 Nov, 2015 Neuroforaminal stenosis of s pine M99.89 ; Neck pain M54.2 ; Abnormal mammogram R92.8 ; Essential hypertension I10 and Chronic pain due to trauma G89.21 [facility] [address] [id number] [address] [place] [address] Nov, [facility] [address] [id number] [address] [place] [address] Oct, Acute stress disorder F43.0 [facility] [address] [id number] [address] [place] [id number] Oct, [facility] [address] [id number] [address] [place] [phone] Oct, [facility] [address] [id number] [address] [place] [id number] 05 Oct, 2015 [facility] [address] [id number] [address] [place] [id number] Sep, [facility] [address] [id number] [address] [place] [address] August, [facility] [address] [id number] [address] [place] [address] Jul, Neuroforaminal stenosis of s pine M99.89 ; Neck pain M54.2 ; Abnormal mammogram R92.8 and Essential hypertension I10 [facility] [address] [id number] [address] [place] [id number] Jul, [facility] [address] [id number] [address] [place] [id number] Jul, [facility] [address] [id number] [address] [place] [address] Jul, Abnormal mammogram R92.8 [facility] [address] [id number] [address] [place] [address] Jul, [facility] [address] [id number] [address] [place] [id number] Jul, UTI (urinary tract infection ) N39.0 [facility] [address] [id number] [address] [place] [address] Jul, Dysuria R30.0 [facility] [address] [id number] [address] [place] [address] Jun, [facility] [address] [id number] [address] [place] [address] Jun, [facility] [address] [id number] [address] [place] [address] Jun, Hypokalemia E87.6 and Hematu martina R31.9 [facility] [address] [address] Jun, Hypokalemia E87.6 [place] [address] [address] Jun, [place] [address] [address] Jun, Hypokalemia E87.6 [place] [address] [address] Jun, Hypokalemia E87.6 [place] [address] [address] Jun, Neuroforaminal stenosis of s pine M99.89 ; Hypokalemia E87.6 ; Neck pain M54.2 ; Essential hypertension I10 ; Mixed hyperlipidemia E78.2 and Screening breast examination Z12.[address] [address] Jun, Dysuria R30.0 ; UTI (urinary tract infection) N39.0 and Hematuria R31.[address] [address] May, [address] [address] May, High risk sexual behavior Z7 2.51 ; Hypokalemia E87.6 ; Neuroforaminal stenosis of spine M99.89 ; Neck pain M54.2 ; Essential hypertension I10 ; Mixed hyperlipidemia E78.2 ; STD exposure Z20.2 and Concern about STD in female without diagnosis Z71.[address] [address] 16 May, 2015 Neuroforaminal stenosis of s pine M99.89 ; Neck pain M54.2 ; Hypokalemia E87.6 ; Essential hypertension I10 and Mixed hyperlipidemia E78.[address] [place] [address] 11 May, 2015 [facility] [address] [address] 08 May, 2015 High risk sexual behavior Z7 2.51 ; STD exposure Z20.2 and Concern about STD in female without diagnosis Z71.1 [place] [address] [address] May, [place] [address] [address] Apr, Neuroforaminal stenosis of s pine M99.89 ; Mixed hyperlipidemia E78.2 ; Essential hypertension I10 and Hypokalemia E87.6 [place] [address] [address] Mar, [place] [address] [address] Mar, Hypokalemia E87.6 [place] [address] [address] Mar, Neuroforaminal stenosis of s pine M99.89 ; Mixed hyperlipidemia E78.2 ; Neck pain M54.2 ; Essential hypertension I10 ; Abnormal fasting glucose R73.09 ; Hypokalemia E87.6 and Constipation K59.00 [place] [address] [address] Feb, Neuroforaminal stenosis of s pine M99.89 ; Mixed hyperlipidemia E78.2 ; Neck pain M54.2 ; Essential hypertension I10 ; Abnormal fasting glucose R73.09 ; Hypokalemia E87.6 and Constipation K59.00 [place] [address] [address] Feb, Elevated fasting blood sugar R73.01 [place] [address] [address] Feb, Elevated fasting blood sugar R73.01 [place] [address] [id number] [address] [place] [address] Feb, Hair loss L65.9 [place] [address] [facility] [id number] [address] [place] [id number] Feb, Sinusitis J32.9 ; Essential hypertension I10 and Hair loss L65.9 [place] [address] [facility] [id number] [address] [place] [address] Jan, [place] [address] [id number] [address] [place] [id number] Jan, Essential hypertension I10 ; Neuroforaminal stenosis of spine M99.89 ; Neck pain M54.2 ; Mixed hyperlipidemia E78.2 and Anxiety F41.9 [place] [address] [facility] [id number] [address] [place] [address] Jan, [place] [address] [place] [id number] [place] [address] Jan, Mixed hyperlipidemia E78.2 ; Essential (primary) hypertension I10 ; Strain of muscle, fascia and tendon at neck level, subsequent encounter S16.1XXD and Tension-type headache, unspecified, not intractable G44.209 [place] [address] [facility] [id number] [address] [place] [address] Dec, Lumbar back pain 724.2 and N euroforaminal stenosis of spine 724.00 [place] [address] [id number] [address] [place] [address] Nov, [place] [address] [id number] [address] [place] [address] Nov, Lumbar back pain 724.2 and N euroforaminal stenosis of spine 724.00 [place] [address] [facility] [id number] [address] [place] [address] Nov, Edema 782.3 ; Lumbar back pa in 724.2 ; Essential hypertension, benign 401.1 ; Hyperlipemia 272.4 ; Neuroforaminal stenosis of spine 724.00 and Post-concussion headache 339.20 [facility] [address] [id number] [address] [place] [address] Nov, [facility] [address] [id number] [address] [place] [address] Nov, [facility] [address] [id number] [address] [place] [address] Oct, Essential hypertension, sheridan gn 401.1 [facility] [address] [id number] [address] [place] [address] Oct, Edema 782.3 ; Lumbar back pa in 724.2 ; Essential hypertension, benign 401.1 ; Hyperlipemia 272.4 ; Neuroforaminal stenosis of spine 724.00 and Post-concussion headache 339.20 [facility] [address] [id number] [address] [place] [address] Oct, [facility] [address] [id number] [address] [place] [address] Oct, Edema 782.3 [facility] [address] [facility] [id number] [address] [place] [address] Oct, Lumbar back pain 724.2 [place] [address] [facility] [id number] [address] [place] [address] Oct, Cervicalgia 723.1 ; Lumbar b ack pain 724.2 and High risk medication use V58.69 [facility] [address] [id number] [address] [place] [address] Sep, [facility] [address] [id number] [address] [place] [address] Sep, Lumbar strain 847.2 [facility] [address] [facility] [id number] [address] [place] [address] August, Edema 782.3 and Eustachian t ube dysfunction 381.81 [facility] [address] [id number] [address] [place] [address] August, [facility] [address] [id number] [address] [place] [address] August, Eustachian tube dysfunction 381.81 [facility] [address] [id number] [address] [place] [address] Jul, Otalgia 388.70 and Otitis me jonathon 382.9 [facility] [address] [id number] [address] [place] [address] Jul, [facility] [address] [id number] [address] [place] [id number] Jul, [facility] [address] [id number] [address] [place] [id number] Jul, [facility] [address] [id number] [address] [place] [id number] Jul, [facility] [address] [id number] [address] [place] [id number] Jul, [facility] [address] [id number] [address] [place] [phone] Jun, [facility] [address] [id number] [address] [place] [id number] Jun, [facility] [address] [id number] [address] [place] [id number] Jun, [facility] [address] [id number] [address] [place] [address] May, [facility] [address] [id number] [address] [place] [phone] May, [facility] [address] [id number] [address] [place] [phone] May, [facility] [address] [id number] [address] [place] [phone] May, [facility] [address] [id number] [address] [place] [address], [place] [address] 17 May, 2014 [facility] [address] [id number] [address] [place] [address], [place] [address] May, 2014 [facility] [address] [id number] [address] [place] [address], [place] [address] May, 2014 [facility] [address] [id number] [address] [place] [address], [place] [address] May, 2014 [facility] [address] [id number] [address] [place] [address], [place] [address] May, [facility] [address] [id number] [address] [place] [address], [place] [address] May, [facility] [address] [id number] [address] [place] [address], [place] [address] Apr, [facility] [address] [id number] [address] [place] [address], [place] [address] Apr, [facility] [address] [id number] [address] [place] [address], [place] [address] Apr, [facility] [address] [id number] [address] [place] [address], [place] [address] Apr, [facility] [address] [id number] [address] [place] [id number] Apr, [facility] [address] [id number] [address] [place] [id number] Apr, [facility] [address] [id number] [address] [place] [address], [place] [address] Apr, [facility] [address] [id number] [address] [place] [address], [place] [address] Apr, [facility] [address] [id number] [address] [place] [id number] Apr, [facility] [address] [id number] [address] [place] [address], [place] [address] Apr, [facility] [address] [id number] [address] [place] [address], [place] [address] Apr, [facility] [address] [id number] [address] [place] [address], [place] [address] Apr, [facility] [address] [id number] [address] [place] [address], [place] [address] Apr, [facility] [address] [id number] [address] [place] [address], [place] [address] Apr, [facility] [address] [id number] [address] [place] [address], [place] [address] Apr, [facility] [address] [id number] [address] [place] [address], [place] [address] Mar, [facility] [address] [id number] [address] [place] [address], [place] [address] Mar, [facility] [address] [id number] [address] [place] [address], [place] [address] Mar, [facility] [address] [id number] [address] [place] [address], [place] [address] Mar, [facility] [address] [id number] [address] [place] [address], [place] [address] Feb, [facility] [address] [id number] [address] [place] [address], [place] [address] Feb, [facility] [address] [id number] [address] [place] [address], [place] [address] Feb, [facility] [address] [id number] [address] [place] [address], [place] [address] Feb, [facility] [address] [id number] [address] [place] [address], [place] [address] Jan, [facility] [address] [id number] [address] [place] [address], [place] [address] Jan, [facility] [address] [id number] [facility] [place] [address] Jan, [facility] [address] [id number] [address] [place] [address], [place] [address] Jan, [facility] [address] [id number] [address] [place] [address], [place] [address] Jan, [facility] [address] [id number] [address] [place] [address], [place] [address] Jan, [facility] [address] [id number] [address] [place] [address], [place] [address] Jan, [facility] [address] [id number] [address] [place] [address], [place] [address] Jan, [facility] [address] [id number] [address] [place] [address], [place] [address] Dec, [facility] [address] [id number] [address] [place] [address], [place] [address] Dec, 2013 [facility] [address] [id number] [address] [place] [address], [place] [address] Dec, [facility] [address] [id number] [address] [place] [address], [place] [address] Dec, [facility] [address] [id number] [address] [place] [address], [place] [address] Oct, [facility] [address] [id number] [address] [place] [address], [place] [address] 14 Oct, 2013 [facility] [address] [id number] [address] [place] [address], [place] [address] Oct, [facility] [address] [id number] [address] [place] [address], [place] [address] Oct, [facility] [address] [id number] [address] [place] [address], [place] [address] Oct, [facility] [address] [id number] [address] [place] [address], [place] [address] Oct, [facility] [address] [id number] [facility] [place] [address] Oct, [facility] [address] [id number] [facility] [place] [address] Oct, [facility] [address] [id number] [facility] [place] [address] Sep, [facility] [address] [id number] [address] [place] [address], [place] [address] Sep, [facility] [address] [id number] [address] [place] [address], [place] [address] Sep, [facility] [address] [id number] [address] [place] [address], [place] [address] Sep, [facility] [address] [id number] [address] [place] [address], [place] [address] Sep, [facility] [address] [id number] [address] [place] [address], [place] [address] Sep, [facility] [address] [id number] [address] [place] [address], [place] [address] Sep, [facility] [address] [id number] [address] [place] [address], [place] [address] Sep, [facility] [address] [id number] [address] [place] [address], [place] [address] Sep, [facility] [address] [id number] [address] [place] [address], [place] [address] Sep, [facility] [address] [id number] [address] [place] [address], [place] [address] August, [facility] [address] [id number] [address] [place] [address], [place] [address] August, [facility] [address] [id number] [address] [place] [address], [place] [address] August, [facility] [address] [id number] [address] [place] [address], [place] [address] August, [facility] [address] [id number] [address] [place] [address], [place] [address] August, [facility] [address] [id number] [address] [place] [address], [place] [address] August, [facility] [address] [id number] [address] [place] [address], [place] [address] August, [facility] [address] [id number] [address] [place] [address], [place] [address] August, [facility] [address] [id number] [address] [place] [address], [place] [address] August, [facility] [address] [id number] [address] [place] [address], [place] [address] August, [facility] [address] [id number] [address] [place] [address], [place] [address] August, [facility] [address] [id number] [address] [place] [address], [place] [address] August, [facility] [address] [id number] [address] [place] [address], [place] [address] Jul, [facility] [address] [id number] [address] [place] [address], [place] [address] Jul, [facility] [address] [id number] [address] [place] [address], [place] [address] Jul, [facility] [address] [id number] [address] [place] [address], [place] [address] Jul, [facility] [address] [id number] [address] [place] [address], [place] [address] Jul, [facility] [address] [id number] [address] [place] [address], [place] [address] Jul, [facility] [address] [id number] [address] [place] [address], [place] [address] Jun, [facility] [address] [id number] [address] [place] [address], [place] [address] Jun, [facility] [address] [id number] [address] [place] [address], [place] [address] May, [facility] [address] [id number] [address] [place] [address], [place] [address] May, [facility] [address] [id number] [address] [place] [address], [place] [address] Apr, [facility] [address] [id number] [address] [place] [address], [place] [address] Apr, [facility] [address] [id number] [address] [place] [address], [place] [address] Apr, [facility] [address] [id number] [address] [place] [address], [place] [address] Apr, [facility] [address] [id number] [address] [place] [address], [place] [address] Apr, [facility] [address] [id number] [address] [place] [address], [place] [address] Apr, [facility] [address] [id number] [address] [place] [address], [place] [address] Apr, [facility] [address] [id number] [address] [place] [address], [place] [address] Apr, [facility] [address] [id number] [address] [place] [address], [place] [address] Apr, [facility] [address] [id number] [address] [place] [address], [place] [address] Apr, [facility] [address] [id number] [address] [place] [address], [place] [address] Apr, [facility] [address] [id number] [address] [place] [address], [place] [address] Apr, [facility] [address] [id number] [address] [place] [id number] Apr, [facility] [address] [id number] [address] [place] [address], [place] [address] Mar, [facility] [address] [id number] [address] [place] [id number] Mar, [facility] [address] [id number] [address] [place] [address], [place] [address] Mar, [facility] [address] [id number] [address] [place] [id number] Mar, [facility] [address] [id number] [address] [place] [address], [place] [address] Feb, [facility] [address] [id number] [address] [place] [address], [place] [address] Feb, [facility] [address] [id number] [address] [place] [address], [place] [address] Feb, [facility] [address] [id number] [address] [place] [address], [place] [address] Feb, [facility] [address] [id number] [address] [place] [id number] 14 Jan, 2013 [facility] [address] [id number] [address] [place] [id number] 14 Jan, 2013 [facility] [address] [id number] [address] [place] [id number] Jan, [facility] [address] [id number] [address] [place] [id number] 11 Jan, 2013 [facility] [address] [id number] [address] [place] [id number] 10 Jan, 2013 [facility] [address] [id number] [address] [place] [id number] 10 Jan, 2013 [facility] [address] [id number] [address] [place] [id number] 09 Jan, 2013 [facility] [address] [id number] [address] [place] [address], [place] [address] Jan, [facility] [address] [id number] [address] [place] [address], [place] [address] Jan, [facility] [address] [id number] [address] [place] [address], [place] [address] Dec, [facility] [address] [id number] [address] [place] [address], [place] [address] Dec, [facility] [address] [id number] [address] [place] [address], [place] [address] 16 Dec, 2012 [facility] [address] [id number] [address] [place] [address], [place] [address] Dec, [facility] [address] [id number] [address] [place] [address], [place] [address] Nov, [facility] [address] [id number] [address] [place] [address], [place] [address] Nov, [facility] [address] [id number] [address] [place] [address], [place] [address] Nov, [facility] [address] [id number] [address] [place] [address], [place] [address] Nov, [facility] [address] [id number] [address] [place] [address], [place] [address] Oct, [facility] [address] [id number] [address] [place] [address], [place] [address] Sep, [facility] [address] [id number] [address] [place] [address], [place] [address] August, [facility] [address] [id number] [address] [place] [address], [place] [address] August, [facility] [address] [id number] [address] [place] [address], [place] [address] August, [facility] [address] [id number] [address] [place] [address], [place] [address] August, [facility] [address] [id number] [address] [place] [address], [place] [address] August, [facility] [address] [id number] [address] [place] [address], [place] [address] August, [facility] [address] [id number] [address] [place] [address], [place] [address] August, [facility] [address] [id number] [address] [place] [address], [place] [address] August, [facility] [address] [id number] [address] [place] [address], [place] [address] August, [facility] [address] [id number] [address] [place] [address], [place] [address] August, [facility] [address] [id number] [address] [place] [address], [place] [address] August, [facility] [address] [id number] [address] [place] [address], [place] [address] August, [facility] [address] [id number] [address] [place] [address], [place] [address] Jul, [facility] [address] [id number] [address] [place] [address], [place] [address] Jul, [facility] [address] [id number] [address] [place] [address], [place] [address] 18 Jul, 2012 [facility] [address] [id number] [address] [place] [address], [place] [address] Jul, [facility] [address] [id number] [address] [place] [address], [place] [address] Jul, [facility] [address] [id number] [address] [place] [address], [place] [address] Jul, [facility] [address] [id number] [address] [place] [address], [place] [address] 04 Jul, 2012 [facility] [address] [id number] [address] [place] [address], [place] [address] Jul, [facility] [address] [id number] [address] [place] [address], [place] [address] Jul, [facility] [address] [id number] [address] [place] [address], [place] [address] Jul, [facility] [address] [id number] [address] [place] [address], [place] [address] Jul, [facility] [address] [id number] [address] [place] [address], [place] [address] Jun, [facility] [address] [id number] [address] [place] [address], [place] [address] Jun, [facility] [address] [id number] [address] [place] [address], [place] [address] Jun, [facility] [address] [id number] [address] [place] [address], [place] [address] Jun, [facility] [address] [id number] [address] [place] [address], [place] [address] May, [facility] [address] [id number] [address] [place] [address], [place] [address] May, [facility] [address] [id number] [address] [place] [address], [place] [address] May, [facility] [address] [id number] [address] [place] [address], [place] [address] May, [facility] [address] [id number] [address] [place] [address], [place] [address] May, [facility] [address] [id number] [address] [place] [address], [place] [address] May, [facility] [address] [id number] [address] [place] [address], [place] [address] Apr, [facility] [address] [id number] [address] [place] [address], [place] [address] Apr, [facility] [address] [id number] [address] [place] [address], [place] [address] 30 Apr, 2012 [facility] [address] [id number] [address] [place] [address], [place] [address] 28 Apr, 2012 [facility] [address] [id number] [address] [place] [address], [place] [address] 15 Mar, 2012 [facility] [address] [id number] [address] [place] [address], [place] [address] 14 Mar, 2012 [facility] [address] [id number] [address] [place] [address], [place] [address] Mar, [facility] [address] [id number] [address] [place] [address], [place] [address] Mar, [facility] [address] [id number] [address] [place] [address], [place] [address] Mar, [facility] [address] [id number] [address] [place] [address], [place] [address] Mar, [facility] [address] [id number] [address] [place] [address], [place] [address] Mar, [facility] [address] [id number] [address] [place] [address], [place] [address] Feb, [facility] [address] [id number] [address] [place] [address], [place] [address] Feb, [facility] [address] [id number] [address] [place] [address] Feb, [facility] [address] [id number] [address] [place] [address], [place] [address] Feb, [facility] [address] [id number] [address] [place] [address], [place] [address] Jan, [facility] [address] [id number] [address] [place] [address] Jan, [facility] [address] [id number] [address] [place] [address] Jan, [facility] [address] [id number] [address] [place] [address], [place] [address] Jan, [facility] [address] [id number] [address] [place] [address], [place] [address] Jan, [facility] [address] [id number] [address] [place] [address], [place] [address] Jan, [facility] [address] [id number] [address] [place] [address], [place] [address] Dec, [facility] [address] [id number] [address] [place] [address], [place] [address] Dec, [facility] [address] [id number] [address] [place] [address], [place] [address] Nov, [facility] [address] [id number] [address] [place] [address], [place] [address] Sep, [facility] [address] [id number] [address] [place] [address], [place] [address] August, [facility] [address] [id number] [address] [place] [address], [place] [address] August, [facility] [address] [id number] [address] [place] [address], [place] [address] August, [facility] [address] [id number] [address] [place] [address], [place] [address] August, [facility] [address] [id number] [address] [place] [address], [place] [address] August, [facility] [address] [id number] [address] [place] [address], [place] [address] Jun, [facility] [address] [id number] [address] [place] [address], [place] [address] Jun, [facility] [address] [id number] [address] [place] [address], [place] [address] Apr, [facility] [address] [id number] [address] [place] [address], [place] [address] 20 Apr, 2011 [facility] [address] [id number] [address] [place] [address], [place] [address] 23 Mar, 2011 [facility] [address] [id number] [address] [place] [address], [place] [address] 22 Feb, 2011 [facility] [address] [id number] [address] [place] [address], [place] [address] 14 Feb, 2011 [facility] [address] [id number] [address] [place] [address], [place] [address] 14 Feb, 2011 [facility] [address] [id number] [address] [place] [address], [place] [address] 17 Jan, 2011 [facility] [address] [id number] [address] [place] [address], [place] [address] 15 Jan, 2011 [facility] [address] [id number] [address] [place] [address], [place] [address] 15 Jan, 2011 [facility] [address] [id number] [address] [place] [address], [place] [address] 14 Jan, 2011 [facility] [address] [id number] [address] [place] [address], [place] [address] 15 May, 2010 [facility] [address] [id number] [address] [place] [address], [place] [address] 04 Mar, 2010 [facility] [address] [id number] [address] [place] [address], [place] [address] Oct, [facility] [address] [id number] [address] [place] [address], [place] [address] 14 Sep, 2009 [facility] [address] [id number] [address] [place] [address], [place] [address] 09 Mar, 2009 [facility] [address] [id number] [address] [place] [address], [place] [address] 27 Jan, 2009 [facility] [address] [id number] [address] [place] [address] [address] Jan, [facility] [address] [facility] [id number] [address] [place] [address] May, IMMUNIZATIONS No Known Immunizations SOCIAL HISTORY Never Assessed REASON FOR VISIT PLAN OF CARE VITAL SIGNS Height 62 in 2013-04-18 Weight 181 lbs 2013-04-18 Temperature 97.3 degrees Fahrenheit 2013-04-18 Heart Rate 80 bpm 2013-04-18 Respiratory Rate 20 2013-04-18 Blood pressure systolic 110 mmHg 2013-04-18 Blood pressure diastolic 70 mmHg 2013-04-18 MEDICATIONS Unknown Medications RESULTS No Results PROCEDURES Procedure Date Ordered Result Body Site TRICHOMONAS VAGIN, DIR PROBE Apr 18, 2013 CHYLMD TRACH, DNA, AMP PROBE Apr 18, 2013 CULTURE, BACTERIA, OTHER Apr 18, 2013 INSTRUCTIONS MEDICATIONS ADMINISTERED No Known Medications [...]
--- OUTSIDE RECORDS SUMMARY | 2019-11-23 06:16 | XMS REPORT ---
Author Author Liana Coe Doctor Organization [facility] Address Unknown Phone Unavailable Care Team Providers Care Giving Officer Name Role Phone Migration, Doctor Unavailable Unavailable PROBLEMS Type Condition ICD9-CM Code SHD39-TR Code Onset Dates Condition S tatus SNOMED Code Problem Anxiety F41.9 Active 91003842 Problem Neck pain M54.2 Active 11358075 Problem Neuroforaminal stenosis of spine M99.89 Active 657577618179 Problem Hematuria, unspecified type R31.9 Ac tive 53382465 Problem Seasonal allergies J30.2 Active 4 02963275 Problem Abnormal glucose R73.09 Active 102 985564 Problem Rhinosinusitis J32.9 Active 52267 4004 Problem Abnormal renal ultrasound R93.429 Acti ve [id number] Problem Essential hypertension I10 Active 90503504 Problem Mixed hyperlipidemia E78.2 Active 33428584 Problem Hypokalemia E87.6 Active 41994767 Problem Chronic pain due to trauma G89.21 Act juanis [id number] ALLERGIES No Information ENCOUNTERS Encounter Location Date Diagnosis [place] [address] [facility] [id number] [address] [place] [id number] Jul, [facility] [place] [address] [place] [id number] [address] [place] [address] Jun, Hypokalemia E87.6 [facility] [place] [address] [facility] [id number] [address] [place] [id number] Jun, [facility] [place] [address] [facility] [id number] [address] [place] [address] Jun, Neuroforaminal stenosis of s pine M99.89 [facility] [place] [address] [place] [id number] [address] [place] [id number] Jun, Lateral epicondylitis, left elbow M77.12 and Medial epicondylitis, left elbow M77.02 [facility] [place] [address] [id number] [address] [place] [address] 16 Jun, 2019 Foraminal stenosis of lumbar region M48.061 ; Segmental dysfunction of thoracic region M99.02 ; Segmental dysfunction of lumbar region M99.03 and Segmental dysfunction of sacral region M99.04 [place] [address] [id number] [address] [place] [address] May, Left elbow pain M25.522 [place] [address] [id number] [address] [place] [id number] May, [place] [address] [id number] [address] [place] [address] May, Left elbow pain M25.522 [place] [address] [id number] [address] [place] [id number] May, Neuroforaminal stenosis of s pine M99.89 [place] [address] [facility] [id number] [address] [place] [address] May, Rhinosinusitis J32.9 ; Left elbow pain M25.522 and Neck pain M54.2 [place] [address] [facility] [id number] [address] [place] [address] 14 May, 2019 Lateral epicondylitis of lef t elbow M77.12 [place] [address] [facility] [id number] [address] [place] [address] Apr, Neuroforaminal stenosis of s pine M99.89 [place] [address] [id number] [address] [place] [address] Apr, Essential hypertension I10 a nd Mixed hyperlipidemia E78.2 [place] [address] [facility] [id number] [address] [place] [phone] Mar, Neuroforaminal stenosis of s pine M99.89 [place] [address] [facility] [id number] [address] [place] [address] Mar, Epicondylitis, lateral, left M77.12 [facility] [place] [address] [facility] [id number] [address] [place] [id number] Mar, [facility] [place] [address] [facility] [id number] [address] [place] [address] Mar, Neuroforaminal stenosis of s pine M99.89 [facility] [place] [address] [facility] [id number] [address] [place] [address] Feb, Neuroforaminal stenosis of s pine M99.89 ; Essential hypertension I10 ; Mixed hyperlipidemia E78.2 ; Encounter for immunization Z23 and Seasonal allergies J30.2 [facility] [place] [address] [facility] [id number] [address] [place] [phone] Jan, Neuroforaminal stenosis of s pine M99.89 [facility] [place] [address] [place] [id number] [address] [place] [id number] Dec, Neuroforaminal stenosis of s pine M99.89 [facility] [place] [address] [place] [id number] [address] [place] [id number] Dec, Neuroforaminal stenosis of s pine M99.89 [facility] [place] [address] [place] [id number] [address] [place] [id number] Nov, [facility] [place] [address] [place] [id number] [address] [place] [address] Nov, Neuroforaminal stenosis of s pine M99.89 [facility] [place] [address] [place] [id number] [address] [place] [id number] Nov, Acute non-recurrent maxillar y sinusitis J01.00 [facility] [place] [address] [facility] [id number] [address] [place] [id number] Oct, Hypokalemia E87.6 [facility] [address] [facility] [id number] [address] [place] [address] Oct, Wasp sting, undetermined int ent, initial encounter T63.464A and Cellulitis of left lower extremity L03.116 [place] [address] [id number] [address] [place] [address] Oct, Neuroforaminal stenosis of s pine M99.89 [place] [address] [id number] [address] [place] [address] Sep, [place] [address] [id number] [address] [place] [phone] Sep, [place] [address] [id number] [address] [place] [id number] Sep, Routine screening for STI (s exually transmitted infection) Z11.3 [place] [address] [id number] [address] [place] [id number] 14 Sep, 2018 Routine screening for STI (s exually transmitted infection) Z11.3 ; Well woman exam with routine gynecological exam Z01.419 and Breast cancer screening Z12.39 [place] [address] [id number] [address] [place] [address] Sep, Neuroforaminal stenosis of s pine M99.89 [place] [address] [id number] [address] [place] [id number] August, Neuroforaminal stenosis of s pine M99.89 [place] [address] [id number] [address] [place] [address] August, Neuroforaminal stenosis of s pine M99.89 ; Chronic pain due to trauma G89.21 and Mixed hyperlipidemia E78.2 [place] [address] [id number] [address] [place] [address] Jul, Viral upper respiratory illn ess J06.9 and Acute non-recurrent frontal sinusitis J01.10 [place] [address] [facility] [id number] [address] [place] [address] Jul, Congestion of nasal sinus R0 9.81 [place] [address] [facility] [id number] [address] [place] [address] Jul, Neuroforaminal stenosis of s pine M99.89 and Essential hypertension I10 [facility] [place] [address] [id number] [address] [place] [id number] May, Neuroforaminal stenosis of s pine M99.89 [facility] [place] [address] [id number] [address] [place] [address] May, [facility] [place] [address] [id number] [address] [place] [id number] May, Congestion of nasal sinus R0 9.81 [facility] [place] [address] [id number] [address] [place] [address] May, [facility] [place] [address] [id number] [address] [place] [address] Apr, Neuroforaminal stenosis of s pine M99.89 [facility] [place] [address] [id number] [address] [place] [address] Apr, Neuroforaminal stenosis of s pine M99.89 and Chronic pain due to trauma G89.21 [facility] [place] [address] [id number] [address] [place] [id number] Mar, UTI (urinary tract infection ) N39.0 [facility] [place] [address] [id number] [address] [place] [id number] Mar, Vertigo R42 [facility] [place] [address] [id number] [address] [place] [address] Mar, Neuroforaminal stenosis of s pine M99.89 [facility] [place] [address] [id number] [address] [place] [phone] Feb, Extensor tendon disruption M 67.89 [facility] [place] [address] [id number] [address] [place] [address] Feb, Neuroforaminal stenosis of s pine M99.89 and High risk medication use Z79.899 [facility] [place] [address] [id number] [address] [place] [phone] Jan, Hypokalemia E87.6 [place] [address] [facility] [id number] [address] [place] [address] Jan, Flank pain R10.9 and Acute r ight-sided low back pain without sciatica M54.5 [facility] [place] [address] [facility] [id number] [address] [place] [phone] Jan, Hypokalemia E87.6 [place] [address] [facility] [id number] [address] [place] [id number] Jan, [place] [address] [facility] [id number] [place] [address] Jan, URI, acute J06.9 [place] [address] [facility] [id number] [address] [place] [address] Jan, Neuroforaminal stenosis of s pine M99.89 [place] [address] [place] [id number] [address] [place] [id number] 13 Dec, 2017 Lateral epicondylitis, right elbow M77.11 [place] [address] [place] [id number] [address] [place] [id number] 11 Dec, 2017 Allergic rhinitis due to monica rosalina, unspecified seasonality J30.1 and Allergic conjunctivitis of both eyes H10.13 [place] [address] [place] [id number] [address] [place] [address] 10 Dec, 2017 Neuroforaminal stenosis of s pine M99.89 [place] [address] [facility] [id number] [address] [place] [address] 06 Dec, 2017 Mixed hyperlipidemia E78.2 [place] [address] [place] [id number] [place] [address] 05 Dec, 2017 Abnormal glucose R73.09 ; Ab normal renal ultrasound R93.429 ; Dysuria R30.0 ; Cystitis without hematuria N30.90 ; Hypokalemia E87.6 ; Mixed hyperlipidemia E78.2 and Hematuria, unspecified type R31.9 [place] [address] [id number] [address] [place] [address] Nov, Hypokalemia E87.6 ; Mixed hy perlipidemia E78.2 and Hematuria, unspecified type R31.9 [facility] [place] [address] [id number] [address] [place] [address] Nov, [facility] [place] [address] [id number] [address] [place] [address] Nov, Hypokalemia E87.6 [place] [address] [id number] [address] [place] [phone] Nov, [place] [address] [id number] [address] [place] [address] Nov, Abnormal renal ultrasound R9 3.429 [place] [address] [id number] [address] [place] [address] Nov, Abnormal renal ultrasound R9 3.429 [place] [address] [id number] [address] [place] [phone] Nov, Hematuria, unspecified type R31.9 and Neuroforaminal stenosis of spine M99.89 [place] [address] [facility] [id number] [address] [place] [address] Nov, Dysuria R30.0 [place] [address] [id number] [address] [place] [address] Oct, Lateral epicondylitis, right elbow M77.11 [place] [address] [id number] [address] [place] [address] Oct, Neuroforaminal stenosis of s pine M99.89 ; Visit for TB skin test Z11.1 and Essential hypertension I10 [place] [address] [id number] [address] [place] [id number] Oct, [place] [address] [facility] [id number] [address] [place] [address] Oct, Neuroforaminal stenosis of s pine M99.89 [place] [address] [id number] [address] [place] [id number] 10 Oct, 2017 Visit for TB skin test Z11.1 [place] [address] [id number] [address] [place] [id number] 05 Oct, 2017 Cystitis without hematuria N 30.90 [place] [address] [id number] [address] [place] [address] 28 Sep, 2017 Screening breast examination Z12.39 [place] [address] [id number] [address] [place] [address] 26 Sep, 2017 Dysuria R30.0 and Cystitis w ithout hematuria N30.90 [place] [address] [id number] [address] [place] [address] 14 Sep, 2017 Essential hypertension I10 a nd 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 [place] [address] [id number] [address] [place] [address] 04 Sep, 2017 Abnormal glucose R73.09 [place] [address] [id number] [address] [place] [address] August, Lateral epicondylitis, right elbow M77.11 [place] [address] [id number] [address] [place] [phone] August, Screen for STD (sexually tra nsmitted disease) Z11.3 [place] [address] [id number] [address] [place] [address] August, Neuroforaminal stenosis of s pine M99.89 ; Mixed hyperlipidemia E78.2 ; Elevated fasting glucose R73.01 ; Screening mammogram, encounter for Z12.31 and Encounter for well woman exam without gynecological exam Z00.00 [place] [address] [id number] [address] [place] [address] August, Neuroforaminal stenosis of s pine M99.89 [place] [address] [id number] [address] [place] [address] August, Essential hypertension I10 ; Hypokalemia E87.6 and Mixed hyperlipidemia E78.2 [facility] [place] [address] [id number] [address] [place] [phone] Jul, [facility] [place] [address] [facility] [id number] [address] [place] [address] Jul, Neuroforaminal stenosis of s pine M99.89 [facility] [place] [address] [id number] [address] [place] [address] Jul, Lateral epicondylitis, right elbow M77.11 [facility] [place] [address] [facility] [id number] [address] [place] [address] Jul, [facility] [place] [address] [facility] [id number] [address] [place] [address] Jun, High ankle sprain of right l ower extremity, initial encounter S93.431A [facility] [place] [address] [id number] [address] [place] [id number] Jun, Essential hypertension I10 [facility] [place] [address] [id number] [address] [place] [id number] Jun, [facility] [place] [address] [id number] [address] [place] [phone] Jun, [facility] [place] [address] [id number] [address] [place] [id number] Jun, Neuroforaminal stenosis of s jose M99.89 [facility] [place] [address] [id number] [address] [place] [id number] Jun, Pain of right upper extremit y M79.601 and Essential hypertension I10 [facility] [place] [address] [id number] [address] [place] [id number] Jun, [facility] [place] [address] [facility] [id number] [address] [place] [id number] 07 Mar, 2018 Dysuria R30.0 ; Acute cystit is with hematuria N30.01 and Screen for STD (sexually transmitted disease) Z11.3 [place] [address] [place] [id number] [address] [place] [address] May, Chronic pain due to trauma G 89.21 [place] [address] [facility] [id number] [address] [place] [address] May, Essential hypertension I10 [place] [address] [facility] [id number] [address] [place] [address] May, Neuroforaminal stenosis of s pine M99.89 [place] [address] [address] Apr, Allergic reaction, initial e ncounter T78.40XA [place] [address] [place] [id number] [place] [address] Apr, Low back pain, unspecified b ack pain laterality, unspecified chronicity, with sciatica presence unspecified M54.5 ; Acute cystitis with hematuria N30.01 ; 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 ; Bilateral acute serous otitis media, recurrence not specified H65.03 ; Mixed hyperlipidemia E78.2 ; Essential hypertension I10 ; Immunization counseling Z71.89 and Encounter for immunization Z23 [place] [address] [place] [id number] [address] [place] [address] Apr, Neck pain M54.2 [place] [address] [place] [id number] [address] [place] [address] Mar, Neuroforaminal stenosis of s pine M99.89 [place] [address] [place] [id number] [address] [place] [address] Mar, Pharyngitis due to other org anism J02.8 [place] [address] [facility] [id number] [address] [place] [address] Feb, Neuroforaminal stenosis of s pine M99.89 [place] [address] [place] [id number] [address] [place] [id number] 08 Feb, 2017 UTI (urinary tract infection ) N39.0 [facility] [place] [address] [id number] [address] [place] [id number] 07 Feb, 2017 Recent urinary tract infecti on Z87.440 ; 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 ; Neck pain M54.2 ; Chronic pain due to trauma G89.21 and Recurrent UTI N39.0 [facility] [place] [address] [id number] [address] [place] [phone] Feb, [facility] [place] [address] [id number] [address] [place] [phone] Jan, Neuroforaminal stenosis of s pine M99.89 [facility] [place] [address] [id number] [address] [place] [address] Dec, Neuroforaminal stenosis of s pine M99.89 [facility] [place] [address] [id number] [address] [place] [phone] Dec, Acute seasonal allergic rhin itis due to pollen J30.1 [facility] [place] [address] [id number] [address] [place] [phone] 08 Dec, 2016 [facility] [place] [address] [id number] [address] [place] [id number] Dec, Acute seasonal allergic rhin itis, unspecified trigger J30.2 ; Allergic conjunctivitis of both eyes H10.13 and Dysfunction of both eustachian tubes H69.83 [facility] [place] [address] [id number] [address] [place] [id number] Dec, [facility] [place] [address] [id number] [address] [place] [id number] Dec, Nevus D22.9 [facility] [place] [address] [id number] [address] [place] [id number] Nov, Chronic pain due to trauma G 89.21 and Neuroforaminal stenosis of spine M99.89 [place] [id number] [id number] [address] [place] [id number] Nov, Neuroforaminal stenosis of s pine M99.89 ; Essential hypertension I10 ; Mixed hyperlipidemia E78.2 ; Hypokalemia E87.6 ; Neck pain M54.2 and Nevus D22.9 [facility] [place] [address] [id number] [address] [place] [id number] Oct, Neuroforaminal stenosis of s pine M99.89 [facility] [place] [address] [id number] [address] [place] [id number] Sep, Neuroforaminal stenosis of s pine M99.89 [facility] [place] [address] [id number] [address] [place] [id number] Sep, [facility] [place] [address] [id number] [address] [place] [id number] August, [facility] [place] [address] [id number] [address] [place] [id number] August, Neck pain M54.2 and Neurofor aminal stenosis of spine M99.89 [facility] [place] [address] [id number] [address] [place] [id number] August, Routine gynecological examin ation Z01.419 and Screening breast examination Z12.39 [facility] [place] [address] [id number] [address] [place] [phone] Jul, [facility] [place] [address] [id number] [address] [place] [phone] Jul, [facility] [place] [address] [id number] [address] [place] [id number] Jul, Neuroforaminal stenosis of s pine M99.89 [facility] [place] [address] [id number] [address] [place] [id number] Jul, [facility] [place] [address] [id number] [address] [place] [id number] Jul, Neuroforaminal stenosis of l umbar 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 [facility] [place] [address] [id number] [address] [place] [id number] Jul, [facility] [place] [address] [id number] [address] [place] [id number] Jul, [facility] [place] [address] [id number] [address] [place] [address] Jun, Neuroforaminal stenosis of ayla garcia M99.89 [facility] [place] [address] [id number] [address] [place] [id number] Jun, Uterine leiomyoma, unspecifi ed location D25.9 and Allergic reaction caused by a drug, initial encounter T78.40XA [facility] [place] [address] [facility] [id number] [address] [place] [id number] Jun, [facility] [place] [address] [facility] [id number] [address] [place] [address] May, UTI symptoms R39.9 and Pain of right sacroiliac joint M53.3 [place] [address] [address] [facility] [id number] [address] [place] [id number] May, Neuroforaminal stenosis of ayla garcia M99.89 [facility] [place] [address] [facility] [id number] [address] [place] [id number] May, [facility] [place] [address] [facility] [id number] [address] [place] [id number] May, Acute mucoid otitis media of left ear H65.112 and Acute non- recurrent maxillary sinusitis J01.00 [place] [address] [facility] [id number] [address] [place] [address] May, Acute bacterial conjunctivit is of both eyes H10.33 ; Left arm pain M79.602 and Hypokalemia E87.6 [facility] [place] [address] [facility] [id number] [address] [place] [address] Apr, [place] [address] [id number] [address] [place] [address] Apr, Neuroforaminal stenosis of s pine M99.89 ; Neck pain M54.2 ; Chronic pain due to trauma G89.21 ; Mixed hyperlipidemia E78.2 ; Essential hypertension I10 and Hypokalemia E87.6 [facility] [place] [address] [id number] [address] [place] [address] Mar, Oral candidiasis B37.0 ; Nathaniel roforaminal stenosis of spine M99.89 ; Neck pain M54.2 and Chronic pain due to trauma G89.21 [facility] [place] [address] [id number] [address] [place] [phone] Feb, [facility] [place] [address] [id number] [address] [place] [id number] Feb, [facility] [place] [address] [facility] [id number] [address] [place] [id number] Feb, UTI (urinary tract infection ) N39.0 [facility] [place] [address] [id number] [address] [place] [address] Feb, Dysuria R30.0 [facility] [place] [address] [facility] [id number] [address] [place] [address] Feb, Dysuria R30.0 [facility] [place] [address] [id number] [address] [place] [id number] Feb, Neuroforaminal stenosis of s pine M99.89 ; Neck pain M54.2 ; Essential hypertension I10 ; Chronic pain due to trauma G89.21 ; Dysuria R30.0 ; Abnormal MRI, shoulder R93.8 and Acute cystitis without hematuria N30.00 [facility] [place] [address] [id number] [address] [place] [id number] Jan, [facility] [place] [address] [id number] [address] [place] [phone] Jan, [facility] [place] [address] [id number] [address] [place] [id number] Jan, [facility] [place] [address] [id number] [address] [place] [address] Jan, Abnormal MRI R93.8 [facility] [place] [address] [id number] [address] [place] [id number] 29 Dec, 2015 [facility] [address] [id number] [address] [place] [id number] 15 Dec, 2015 Acute pain of left shoulder M25.512 [facility] [place] [address] [id number] [address] [place] [id number] 09 Dec, 2015 [facility] [place] [address] [id number] [address] [place] [phone] 08 Dec, 2015 [facility] [place] [address] [id number] [address] [place] [id number] 07 Dec, 2015 Acute pain of left shoulder M25.512 [facility] [place] [address] [id number] [address] [place] [id number] Nov, [facility] [place] [address] [id number] [address] [place] [id number] Nov, Neuroforaminal stenosis of s pine M99.89 ; Neck pain M54.2 ; Abnormal mammogram R92.8 ; Essential hypertension I10 and Chronic pain due to trauma G89.21 [facility] [place] [address] [id number] [address] [place] [id number] Nov, [facility] [place] [address] [id number] [address] [place] [id number] Oct, Acute stress disorder F43.0 [facility] [place] [address] [id number] [address] [place] [phone] Oct, [facility] [place] [address] [id number] [address] [place] [id number] Oct, [facility] [place] [address] [id number] [address] [place] [id number] Oct, [facility] [place] [address] [id number] [address] [place] [phone] Sep, [facility] [place] [address] [id number] [address] [place] [phone] August, [facility] [place] [address] [id number] [address] [place] [id number] Jul, Neuroforaminal stenosis of s pine M99.89 ; Neck pain M54.2 ; Abnormal mammogram R92.8 and Essential hypertension I10 [facility] [place] [address] [id number] [address] [place] [id number] Jul, [facility] [place] [address] [id number] [address] [place] [id number] Jul, [facility] [place] [address] [id number] [address] [place] [id number] Jul, Abnormal mammogram R92.8 [facility] [place] [address] [id number] [address] [place] [id number] Jul, [facility] [place] [address] [id number] [address] [place] [id number] Jul, UTI (urinary tract infection ) N39.0 [facility] [place] [address] [id number] [address] [place] [id number] Jul, Dysuria R30.0 [facility] [place] [address] [id number] [address] [place] [id number] Jun, [facility] [place] [address] [id number] [address] [place] [phone] Jun, [facility] [place] [address] [id number] [address] [place] [id number] Jun, Hypokalemia E87.6 and Hematu martina R31.9 [facility] [place] [address] [id number] [address] [place] [id number] Jun, Hypokalemia E87.6 [place] [address] [address] [place] [id number] [address] [place] [phone] Jun, [place] [address] [address] Jun, Hypokalemia E87.6 [place] [address] [address] Jun, Hypokalemia E87.6 [place] [address] [id number] 15 Jun, 2015 Neuroforaminal stenosis of s pine M99.89 ; Hypokalemia E87.6 ; Neck pain M54.2 ; Essential hypertension I10 ; Mixed hyperlipidemia E78.2 and Screening breast examination Z12.39 [place] [address] [id number] 08 Jun, 2015 Dysuria R30.0 ; UTI (urinary tract infection) N39.0 and Hematuria R31.9 [place] [address] [address] May, [place] [address] [id number] 18 May, 2015 High risk sexual behavior Z7 2.51 ; Hypokalemia E87.6 ; Neuroforaminal stenosis of spine M99.89 ; Neck pain M54.2 ; Essential hypertension I10 ; Mixed hyperlipidemia E78.2 ; STD exposure Z20.2 and Concern about STD in female without diagnosis Z71.1 [place] [address] [address] [place] [id number] [address] [place] [address] 16 May, 2015 Neuroforaminal stenosis of s pine M99.89 ; Neck pain M54.2 ; Hypokalemia E87.6 ; Essential hypertension I10 and Mixed hyperlipidemia E78.2 [place] [address] [address] [place] [id number] [address] [place] [address] May, [facility] [address] [address] 08 May, 2015 High risk sexual behavior Z7 2.51 ; STD exposure Z20.2 and Concern about STD in female without diagnosis Z71.1 [facility] [place] [address] [place] [id number] [address] [place] [id number] 05 May, 2015 [facility] [place] [address] [address] Apr, Neuroforaminal stenosis of ayla garcia M99.89 ; Mixed hyperlipidemia E78.2 ; Essential hypertension I10 and Hypokalemia E87.6 [place] [address] [address] Mar, [place] [address] [address] Mar, Hypokalemia E87.6 [place] [address] [address] Mar, Neuroforaminal stenosis of s jose M99.89 ; Mixed hyperlipidemia E78.2 ; Neck pain M54.2 ; Essential hypertension I10 ; Abnormal fasting glucose R73.09 ; Hypokalemia E87.6 and Constipation K59.00 [place] [address] [address] [place] [id number] [address] [place] [address] Feb, Neuroforaminal stenosis of s jose M99.89 ; Mixed hyperlipidemia E78.2 ; Neck pain M54.2 ; Essential hypertension I10 ; Abnormal fasting glucose R73.09 ; Hypokalemia E87.6 and Constipation K59.00 [place] [address] [address] [place] [id number] [address] [place] [address] Feb, Elevated fasting blood sugar R73.01 [place] [address] [address] Feb, Elevated fasting blood sugar R73.01 [place] [address] [address] Feb, Hair loss L65.9 [facility] [place] [address] [facility] [id number] [address] [place] [id number] Feb, Sinusitis J32.9 ; Essential hypertension I10 and Hair loss L65.9 [facility] [place] [address] [id number] [address] [place] [address] Jan, [facility] [place] [address] [facility] [id number] [address] [place] [address] Jan, Essential hypertension I10 ; Neuroforaminal stenosis of spine M99.89 ; Neck pain M54.2 ; Mixed hyperlipidemia E78.2 and Anxiety F41.9 [place] [address] [address] [facility] [id number] [address] [place] [address] Jan, [place] [address] [address] [place] [id number] [address] [place] [id number] Jan, Mixed hyperlipidemia E78.2 ; Essential (primary) hypertension I10 ; Strain of muscle, fascia and tendon at neck level, subsequent encounter S16.1XXD and Tension-type headache, unspecified, not intractable G44.209 [place] [address] [facility] [id number] [address] [place] [address] Dec, Lumbar back pain 724.2 and N euroforaminal stenosis of spine 724.00 [place] [address] [address] [place] [id number] [address] [place] [phone] Nov, [place] [address] [address] [facility] [id number] [address] [place] [address] Nov, Lumbar back pain 724.2 and N euroforaminal stenosis of spine 724.00 [place] [address] [address] [place] [id number] [address] [place] [id number] Nov, Edema 782.3 ; Lumbar back pa in 724.2 ; Essential hypertension, benign 401.1 ; Hyperlipemia 272.4 ; Neuroforaminal stenosis of spine 724.00 and Post-concussion headache 339.20 [place] [address] [address] [facility] [id number] [address] [place] [id number] Nov, [facility] [place] [address] [id number] [address] [place] [id number] Nov, [facility] [place] [address] [id number] [address] [place] [address] Oct, Essential hypertension, sheridan gn 401.1 [facility] [place] [address] [id number] [address] [place] [address] Oct, Edema 782.3 ; Lumbar back pa in 724.2 ; Essential hypertension, benign 401.1 ; Hyperlipemia 272.4 ; Neuroforaminal stenosis of spine 724.00 and Post-concussion headache 339.20 [facility] [place] [address] [id number] [address] [place] [id number] Oct, [place] [address] [address] [facility] [id number] [address] [place] [address] Oct, Edema 782.3 [facility] [place] [address] [id number] [address] [place] [address] Oct, Lumbar back pain 724.2 [place] [address] [address] [facility] [id number] [address] [place] [phone] Oct, Cervicalgia 723.1 ; Lumbar b ack pain 724.2 and High risk medication use V58.69 [place] [address] [address] [facility] [id number] [address] [place] [phone] Sep, [facility] [place] [address] [id number] [address] [place] [address] Sep, Lumbar strain 847.2 [place] [address] [address] [facility] [id number] [address] [place] [address] August, Edema 782.3 and Eustachian t ube dysfunction 381.81 [facility] [place] [address] [facility] [id number] [address] [place] [address] August, [place] [address] [id number] [address] [place] [address] August, Eustachian tube dysfunction 381.81 [facility] [address] [id number] [address] [place] [address] Jul, Otalgia 388.70 and Otitis me jonathon 382.9 [facility] [address] [id number] [address] [place] [id number] Jul, [facility] [address] [id number] [address] [place] [id number] Jul, [facility] [place] [address] [id number] [address] [place] [id number] Jul, [facility] [place] [address] [id number] [address] [place] [id number] Jul, [facility] [place] [address] [id number] [address] [place] [id number] Jul, [facility] [place] [address] [id number] [address] [place] [id number] Jun, [facility] [place] [address] [id number] [address] [place] [phone] Jun, [facility] [place] [address] [id number] [address] [place] [phone] Jun, [facility] [place] [address] [id number] [address] [place] [id number] May, [facility] [place] [address] [id number] [address] [place] [phone] May, [facility] [place] [address] [id number] [address] [place] [id number] May, [facility] [place] [address] [id number] [address] [place] [id number] May, [facility] [place] [address] [id number] [address] [place] [address] May, [facility] [address] [id number] [address] [place] [address], [place] [address] May, [facility] [address] [id number] [address] [place] [address], [place] [address] May, [facility] [address] [id number] [address] [place] [address], [place] [address] May, [facility] [address] [id number] [address] [place] [address], [place] [address] May, [facility] [address] [id number] [address] [place] [address], [place] [address] May, [facility] [address] [id number] [address] [place] [address], [place] [address] Apr, [facility] [address] [id number] [address] [place] [address], [place] [address] Apr, [facility] [address] [id number] [address] [place] [address], [place] [address] Apr, [facility] [address] [id number] [address] [place] [address], [place] [address] Apr, [facility] [address] [id number] [address] [place] [address], [place] [address] Apr, [facility] [address] [id number] [address] [place] [address], [place] [address] Apr, [facility] [address] [id number] [address] [place] [address], [place] [address] Apr, [facility] [address] [id number] [address] [place] [address], [place] [address] Apr, [facility] [address] [id number] [address] [place] [address], [place] [address] Apr, [facility] [address] [id number] [address] [place] [address], [place] [address] Apr, [facility] [address] [id number] [address] [place] [address], [place] [address] Apr, [facility] [address] [id number] [address] [place] [address], [place] [address] Apr, [facility] [address] [id number] [address] [place] [address], [place] [address] Apr, [facility] [address] [id number] [address] [place] [address], [place] [address] Apr, [facility] [address] [id number] [address] [place] [address], [place] [address] Apr, [facility] [address] [id number] [address] [place] [address], [place] [address] Mar, [facility] [address] [id number] [address] [place] [address], [place] [address] Mar, [facility] [address] [id number] [address] [place] [address], [place] [address] Mar, [facility] [address] [id number] [address] [place] [address], [place] [address] Mar, [facility] [address] [id number] [address] [place] [address], [place] [address] Feb, [facility] [address] [id number] [address] [place] [address], [place] [address] Feb, [facility] [address] [id number] [address] [place] [address], [place] [address] Feb, [facility] [address] [id number] [address] [place] [address], [place] [address] Feb, [facility] [address] [id number] [address] [place] [address], [place] [address] Jan, [facility] [address] [id number] [address] [place] [address], [place] [address] Jan, [facility] [address] [id number] [address] [place] [address], [place] [address] Jan, [facility] [address] [id number] [address] [place] [address], [place] [address] Jan, [facility] [address] [id number] [address] [place] [address], [place] [address] Jan, [facility] [address] [id number] [address] [place] [address], [place] [address] Jan, [facility] [address] [id number] [address] [place] [address], [place] [address] Jan, [facility] [address] [id number] [address] [place] [address], [place] [address] Jan, [facility] [address] [id number] [address] [place] [address], [place] [address] Dec, [facility] [address] [id number] [address] [place] [address], [place] [address] Dec, [facility] [address] [id number] [address] [place] [address], [place] [address] Dec, [facility] [address] [id number] [address] [place] [address], [place] [address] Dec, [facility] [address] [id number] [address] [place] [address], [place] [address] Oct, [facility] [address] [id number] [address] [place] [address], [place] [address] Oct, [facility] [address] [id number] [address] [place] [address], [place] [address] Oct, [facility] [address] [id number] [address] [place] [address], [place] [address] Oct, [facility] [address] [id number] [address] [place] [address], [place] [address] Oct, [facility] [address] [id number] [address] [place] [address], [place] [address] Oct, 2013 [facility] [address] [id number] [address] [place] [address], [place] [address] Oct, [facility] [address] [id number] [address] [address] Oct, [facility] [address] [id number] [address] [place] [address], [place] [address] Sep, [facility] [address] [id number] [address] [place] [address], [place] [address] Sep, [facility] [address] [address] [id number] [address] [place] [address], [place] [address] Sep, [facility] [address] [id number] [address] [place] [address], [place] [address] Sep, [facility] [address] [id number] [address] [place] [address], [place] [address] Sep, [facility] [address] [id number] [address] [place] [address], [place] [address] Sep, [facility] [address] [id number] [address] [place] [address], [place] [address] Sep, [facility] [address] [id number] [address] [place] [address], [place] [address] Sep, [facility] [address] [id number] [address] [place] [address], [place] [address] Sep, [facility] [address] [id number] [address] [place] [address], [place] [address] Sep, [facility] [address] [id number] [address] [place] [address], [place] [address] August, [facility] [address] [id number] [address] [place] [address], [place] [address] August, [facility] [address] [id number] [address] [place] [address], [place] [address] August, [facility] [address] [id number] [address] [place] [address], [place] [address] August, [facility] [address] [id number] [address] [address] August, [facility] [address] [id number] [address] [place] [address], [place] [address] August, [facility] [address] [id number] [address] [place] [address], [place] [address] August, [facility] [address] [id number] [address] [place] [address], [place] [address] August, [facility] [address] [id number] [address] [place] [address], [place] [address] August, [facility] [address] [id number] [address] [place] [address], [place] [address] August, [facility] [address] [id number] [address] [place] [address], [place] [address] August, [facility] [address] [id number] [address] [place] [address], [place] [address] August, [facility] [address] [id number] [address] [place] [address], [place] [address] Jul, [facility] [address] [id number] [address] [place] [address], [place] [address] Jul, [facility] [address] [id number] [address] [place] [address], [place] [address] Jul, [facility] [address] [id number] [address] [place] [address], [place] [address] Jul, [facility] [address] [id number] [address] [place] [address], [place] [address] Jul, [facility] [address] [id number] [address] [place] [address], [place] [address] Jul, [facility] [address] [id number] [address] [place] [address], [place] [address] Jun, [facility] [address] [id number] [address] [place] [address], [place] [address] Jun, [facility] [address] [id number] [address] [place] [address], [place] [address] May, [facility] [address] [id number] [address] [place] [address], [place] [address] May, [facility] [address] [id number] [address] [place] [address], [place] [address] Apr, [facility] [address] [id number] [address] [place] [address], [place] [address] Apr, [facility] [address] [id number] [address] [place] [address], [place] [address] Apr, [facility] [address] [id number] [address] [place] [address], [place] [address] Apr, [facility] [address] [id number] [address] [place] [address], [place] [address] Apr, [facility] [address] [id number] [address] [place] [address], [place] [address] Apr, [facility] [address] [id number] [address] [place] [address], [place] [address] Apr, [facility] [address] [id number] [address] [place] [address], [place] [address] Apr, [facility] [address] [id number] [address] [place] [address], [place] [address] Apr, [facility] [address] [id number] [address] [place] [address], [place] [address] Apr, [facility] [address] [id number] [address] [place] [address], [place] [address] Apr, [facility] [address] [id number] [address] [place] [address], [place] [address] Apr, [facility] [address] [id number] [address] [place] [address], [place] [address] Apr, [facility] [address] [id number] [address] [place] [address] Mar, [facility] [address] [id number] [address] [place] [address], [place] [address] Mar, [facility] [address] [id number] [address] [place] [address] Mar, [facility] [address] [id number] [address] [place] [address], [place] [address] Mar, [facility] [address] [id number] [address] [place] [address], [place] [address] Feb, [facility] [address] [id number] [address] [place] [address], [place] [address] Feb, [facility] [address] [id number] [address] [place] [address], [place] [address] Feb, [facility] [address] [id number] [address] [place] [address] Feb, [facility] [address] [id number] [address] [place] [address], [place] [address] Jan, [facility] [address] [id number] [address] [place] [address] 14 Jan, 2013 [facility] [address] [id number] [address] [place] [address] Jan, [facility] [address] [id number] [address] [place] [address] Jan, [facility] [address] [id number] [address] [place] [address] Jan, [facility] [address] [id number] [address] [place] [address] Jan, [facility] [address] [id number] [address] [place] [address] Jan, [facility] [address] [id number] [address] [place] [address] 09 Jan, 2013 [facility] [address] [id number] [address] [place] [address], [place] [address] Jan, [facility] [address] [id number] [address] [place] [address], [place] [address] 26 Dec, 2012 [facility] [address] [id number] [address] [place] [address], [place] [address] 16 Dec, 2012 [facility] [address] [id number] [address] [place] [address], [place] [address] 16 Dec, 2012 [facility] [address] [id number] [address] [place] [address], [place] [address] 13 Dec, 2012 [facility] [address] [id number] [address] [place] [address], [place] [address] Nov, [facility] [address] [id number] [address] [place] [address], [place] [address] Nov, [facility] [address] [id number] [address] [place] [address], [place] [address] Nov, [facility] [address] [id number] [address] [place] [address], [place] [address] Nov, [facility] [address] [id number] [address] [place] [address], [place] [address] Oct, [facility] [address] [id number] [address] [place] [address], [place] [address] Sep, [facility] [address] [id number] [address] [place] [address], [place] [address] August, [facility] [address] [id number] [address] [place] [address], [place] [address] August, [facility] [address] [id number] [address] [place] [address], [place] [address] August, [facility] [address] [id number] [address] [place] [address], [place] [address] August, [facility] [address] [id number] [address] [place] [address], [place] [address] 15 Aug, 2012 [facility] [address] [id number] [address] [place] [address], [place] [address] August, [facility] [address] [id number] [address] [place] [address], [place] [address] August, [facility] [address] [id number] [address] [place] [address], [place] [address] August, [facility] [address] [id number] [address] [place] [address], [place] [address] August, [facility] [address] [id number] [address] [place] [address], [place] [address] August, [facility] [address] [id number] [address] [place] [address], [place] [address] August, [facility] [address] [id number] [address] [place] [address], [place] [address] August, [facility] [address] [id number] [address] [place] [address], [place] [address] Jul, [facility] [address] [id number] [address] [place] [address], [place] [address] Jul, [facility] [address] [id number] [address] [place] [address], [place] [address] 18 Jul, 2012 [facility] [address] [id number] [address] [place] [address], [place] [address] 15 Jul, 2012 [facility] [address] [id number] [address] [place] [address], [place] [address] Jul, [facility] [address] [id number] [address] [place] [address], [place] [address] Jul, [facility] [address] [id number] [address] [place] [address], [place] [address] 04 Jul, 2012 [facility] [address] [id number] [address] [place] [address], [place] [address] Jul, [facility] [address] [id number] [address] [place] [address], [place] [address] Jul, [facility] [address] [id number] [address] [place] [address], [place] [address] Jul, [facility] [address] [id number] [address] [place] [address], [place] [address] Jul, [facility] [address] [id number] [address] [place] [address], [place] [address] Jun, [facility] [address] [id number] [address] [place] [address], [place] [address] Jun, [facility] [address] [id number] [address] [place] [address], [place] [address] Jun, [facility] [address] [id number] [address] [place] [address], [place] [address] Jun, [facility] [address] [id number] [address] [place] [address], [place] [address] May, [facility] [address] [id number] [address] [place] [address], [place] [address] 14 May, 2012 [facility] [address] [id number] [address] [place] [address], [place] [address] 05 May, 2012 [facility] [address] [id number] [address] [place] [address], [place] [address] May, [facility] [address] [id number] [address] [place] [address], [place] [address] May, [facility] [address] [id number] [address] [place] [address], [place] [address] May, [facility] [address] [id number] [address] [place] [address], [place] [address] Apr, [facility] [address] [id number] [address] [place] [address], [place] [address] Apr, [facility] [address] [id number] [address] [place] [address], [place] [address] Apr, [facility] [address] [id number] [address] [place] [address], [place] [address] Apr, [facility] [address] [id number] [address] [place] [address], [place] [address] 15 Mar, 2012 [facility] [address] [id number] [address] [place] [address], [place] [address] 14 Mar, 2012 [facility] [address] [id number] [address] [place] [address], [place] [address] Mar, [facility] [address] [id number] [address] [place] [address], [place] [address] Mar, [facility] [address] [id number] [address] [place] [address], [place] [address] Mar, [facility] [address] [id number] [address] [place] [address], [place] [address] Mar, [facility] [address] [id number] [address] [place] [address], [place] [address] Mar, [facility] [address] [id number] [address] [place] [address], [place] [address] Feb, [facility] [address] [id number] [address] [place] [address], [place] [address] Feb, [facility] [address] [id number] [address] [place] [address], [place] [address] Feb, [facility] [address] [id number] [address] [place] [address], [place] [address] Feb, [facility] [address] [id number] [address] [place] [address], [place] [address] Jan, [facility] [address] [id number] [address] [place] [address], [place] [address] Jan, [facility] [address] [id number] [address] [place] [address], [place] [address] Jan, [facility] [address] [id number] [address] [place] [address] [place] [address] Jan, [facility] [address] [id number] [address] [place] [address], [place] [address] Jan, [facility] [address] [id number] [address] [place] [address], [place] [address] Jan, [facility] [address] [id number] [address] [place] [address], [place] [address] Dec, [facility] [address] [id number] [address] [place] [address], [place] [address] Dec, [facility] [address] [id number] [address] [place] [address], [place] [address] Nov, [facility] [address] [id number] [address] [place] [address], [place] [address] Sep, [facility] [address] [id number] [address] [place] [address], [place] [address] August, [facility] [address] [id number] [address] [place] [address], [place] [address] August, [facility] [address] [id number] [address] [place] [address], [place] [address] August, [facility] [address] [id number] [address] [place] [address], [place] [address] August, [facility] [address] [id number] [address] [place] [address], [place] [address] August, [facility] [address] [id number] [address] [place] [address], [place] [address] Jun, [facility] [address] [id number] [address] [place] [address], [place] [address] Jun, [facility] [address] [id number] [address] [place] [address], [place] [address] Apr, [facility] [address] [id number] [address] [place] [address], [place] [address] Apr, [facility] [address] [id number] [address] [place] [address], [place] [address] 23 Mar, 2011 [facility] [address] [id number] [address] [place] [address], [place] [address] 22 Feb, 2011 [facility] [address] [id number] [address] [place] [address], [place] [address] 14 Feb, 2011 [facility] [address] [id number] [address] [place] [address], [place] [address] 14 Feb, 2011 [facility] [address] [id number] [address] [place] [address], [place] [address] 17 Jan, 2011 [facility] [address] [id number] [address] [place] [address], [place] [address] 15 Jan, 2011 [facility] [address] [id number] [address] [place] [address], [place] [address] 15 Jan, 2011 [facility] [address] [id number] [address] [place] [address], [place] [address] 14 Jan, 2011 [facility] [address] [id number] [address] [place] [address], [place] [address] 15 May, 2010 [facility] [address] [id number] [address] [place] [address], [place] [address] 04 Mar, 2010 [facility] [address] [id number] [address] [place] [address], [place] [address] Oct, [facility] [address] [id number] [address] [place] [address], [place] [address] Sep, [facility] [address] [id number] [address] [place] [address], [place] [address] Mar, [facility] [address] [id number] [address] [place] [address], [place] [address] Jan, [facility] [address] [id number] [address] [place] [address], [place] [address] Jan, [facility] [address] [id number] [address] [place] [address] May, IMMUNIZATIONS No Known Immunizations SOCIAL HISTORY [...] squamous atypia (no definite dyplasia). Performed at [facility] Dr. Joy. Medical History Acute [...]
--- OUTSIDE RECORDS SUMMARY | 2019-11-23 06:17 | XMS REPORT ---
Author Author Liana oCe Doctor Organization [facility] Address Unknown Phone Unavailable Care Team Providers Care Esthetic Dermatologist Name Role Phone Migration, Doctor Unavailable Unavailable PROBLEMS Type Condition ICD9-CM Code DPI25-NT Code Onset Dates Condition S tatus SNOMED Code Problem Anxiety F41.9 Active 41631699 Problem Neck pain M54.2 Active 58161128 Problem Neuroforaminal stenosis of spine M99.89 Active 649453591566 Problem Hematuria, unspecified type R31.9 Ac tive 84421141 Problem Seasonal allergies J30.2 Active 4 28725619 Problem Abnormal glucose R73.09 Active 102 808265 Problem Rhinosinusitis J32.9 Active 47651 4004 Problem Abnormal renal ultrasound R93.429 Acti ve [id number] Problem Essential hypertension I10 Active 71082374 Problem Mixed hyperlipidemia E78.2 Active 29050535 Problem Hypokalemia E87.6 Active 25450105 Problem Chronic pain due to trauma G89.21 Act juanis [id number] ALLERGIES No Information ENCOUNTERS Encounter Location Date Diagnosis [place] [address] [address] [facility] [id number] [address] [place] [id number] Jul, [facility] [address] [facility] [id number] [address] [place] [phone] Jun, Hypokalemia E87.6 [facility] [address] [facility] [id number] [address] [place] [phone] Jun, [facility] [address] [facility] [id number] [address] [place] [id number] Jun, Neuroforaminal stenosis of s pine M99.89 [facility] [address] [place] [id number] [address] [place] [id number] Jun, Lateral epicondylitis, left elbow M77.12 and Medial epicondylitis, left elbow M77.02 [facility] [address] [id number] [address] [place] [address] 16 Jun, 2019 Foraminal stenosis of lumbar region M48.061 ; Segmental dysfunction of thoracic region M99.02 ; Segmental dysfunction of lumbar region M99.03 and Segmental dysfunction of sacral region M99.04 [place] [address] [id number] [address] [place] [id number] May, Left elbow pain M25.522 [place] [address] [id number] [address] [place] [phone] May, [place] [address] [id number] [address] [place] [address] May, Left elbow pain M25.522 [place] [address] [id number] [address] [place] [phone] May, Neuroforaminal stenosis of s pine M99.89 [place] [address] [facility] [id number] [address] [place] [id number] May, Rhinosinusitis J32.9 ; Left elbow pain M25.522 and Neck pain M54.2 [place] [address] [facility] [id number] [address] [place] [id number] 14 May, 2019 Lateral epicondylitis of lef t elbow M77.12 [place] [address] [facility] [id number] [address] [place] [id number] Apr, Neuroforaminal stenosis of s pine M99.89 [place] [address] [id number] [address] [place] [id number] Apr, Essential hypertension I10 a nd Mixed hyperlipidemia E78.2 [place] [address] [facility] [id number] [address] [place] [id number] Mar, Neuroforaminal stenosis of s pine M99.89 [place] [address] [facility] [id number] [address] [place] [address] Mar, Epicondylitis, lateral, left M77.12 [facility] [address] [facility] [id number] [address] [place] [id number] Mar, [facility] [address] [facility] [id number] [address] [place] [id number] Mar, Neuroforaminal stenosis of s pine M99.89 [facility] [address] [facility] [id number] [address] [place] [phone] Feb, Neuroforaminal stenosis of s pine M99.89 ; Essential hypertension I10 ; Mixed hyperlipidemia E78.2 ; Encounter for immunization Z23 and Seasonal allergies J30.2 [facility] [address] [facility] [id number] [address] [place] [id number] Jan, Neuroforaminal stenosis of s pine M99.89 [facility] [address] [place] [id number] [address] [place] [address] Dec, Neuroforaminal stenosis of s pine M99.89 [facility] [address] [place] [id number] [address] [place] [address] Dec, Neuroforaminal stenosis of s pine M99.89 [facility] [address] [place] [id number] [address] [place] [address] Nov, [facility] [address] [place] [id number] [address] [place] [id number] Nov, Neuroforaminal stenosis of s pine M99.89 [facility] [address] [place] [id number] [address] [place] [address] Nov, Acute non-recurrent maxillar y sinusitis J01.00 [facility] [address] [facility] [id number] [address] [place] [address] Oct, Hypokalemia E87.6 [facility] [address] [facility] [id number] [address] [place] [id number] Oct, Wasp sting, undetermined int ent, initial encounter T63.464A and Cellulitis of left lower extremity L03.116 [place] [address] [id number] [address] [place] [address] Oct, Neuroforaminal stenosis of s pine M99.89 [place] [address] [id number] [address] [place] [id number] Sep, [place] [address] [id number] [address] [place] [phone] Sep, [place] [address] [id number] [address] [place] [phone] Sep, Routine screening for STI (s exually transmitted infection) Z11.3 [place] [address] [id number] [address] [place] [id number] 14 Sep, 2018 Routine screening for STI (s exually transmitted infection) Z11.3 ; Well woman exam with routine gynecological exam Z01.419 and Breast cancer screening Z12.39 [place] [address] [id number] [address] [place] [address] Sep, Neuroforaminal stenosis of s pine M99.89 [place] [address] [id number] [address] [place] [id number] August, Neuroforaminal stenosis of s pine M99.89 [place] [address] [id number] [address] [place] [phone] August, Neuroforaminal stenosis of s pine M99.89 ; Chronic pain due to trauma G89.21 and Mixed hyperlipidemia E78.2 [place] [address] [id number] [address] [place] [phone] Jul, Viral upper respiratory illn ess J06.9 and Acute non-recurrent frontal sinusitis J01.10 [place] [address] [facility] [id number] [address] [place] [phone] Jul, Congestion of nasal sinus R0 9.81 [place] [address] [facility] [id number] [address] [place] [phone] Jul, Neuroforaminal stenosis of s pine M99.89 and Essential hypertension I10 [facility] [address] [id number] [address] [place] [address] May, Neuroforaminal stenosis of s pine M99.89 [facility] [address] [id number] [address] [place] [id number] May, [facility] [address] [id number] [address] [place] [id number] May, Congestion of nasal sinus R0 9.81 [facility] [address] [id number] [address] [place] [address] May, [facility] [address] [id number] [address] [place] [address] Apr, Neuroforaminal stenosis of s pine M99.89 [facility] [address] [id number] [address] [place] [address] Apr, Neuroforaminal stenosis of s pine M99.89 and Chronic pain due to trauma G89.21 [facility] [address] [id number] [address] [place] [phone] Mar, UTI (urinary tract infection ) N39.0 [facility] [address] [id number] [address] [place] [phone] Mar, Vertigo R42 [facility] [address] [id number] [address] [place] [id number] Mar, Neuroforaminal stenosis of s pine M99.89 [facility] [address] [id number] [address] [place] [address] Feb, Extensor tendon disruption M 67.89 [facility] [address] [id number] [address] [place] [id number] Feb, Neuroforaminal stenosis of s pine M99.89 and High risk medication use Z79.899 [facility] [address] [id number] [address] [place] [phone] Jan, Hypokalemia E87.6 [place] [address] [facility] [id number] [address] [place] [id number] Jan, Flank pain R10.9 and Acute r ight-sided low back pain without sciatica M54.5 [facility] [address] [facility] [id number] [address] [place] [phone] Jan, Hypokalemia E87.6 [place] [address] [facility] [id number] [address] [place] [phone] Jan, [place] [address] [facility] [id number] [address] [place] [address] Jan, URI, acute J06.9 [place] [address] [facility] [id number] [address] [place] [address] Jan, Neuroforaminal stenosis of s pine M99.89 [place] [address] [place] [id number] [address] [place] [phone] 13 Dec, 2017 Lateral epicondylitis, right elbow M77.11 [place] [address] [place] [id number] [address] [place] [phone] 11 Dec, 2017 Allergic rhinitis due to monica rosalina, unspecified seasonality J30.1 and Allergic conjunctivitis of both eyes H10.13 [place] [address] [place] [id number] [address] [place] [address] 10 Dec, 2017 Neuroforaminal stenosis of s pine M99.89 [place] [address] [facility] [id number] [address] [place] [id number] 06 Dec, 2017 Mixed hyperlipidemia E78.2 [place] [address] [place] [id number] [address] [place] [address] 05 Dec, 2017 Abnormal glucose R73.09 ; Ab normal renal ultrasound R93.429 ; Dysuria R30.0 ; Cystitis without hematuria N30.90 ; Hypokalemia E87.6 ; Mixed hyperlipidemia E78.2 and Hematuria, unspecified type R31.9 [place] [address] [id number] [address] [place] [address] Nov, Hypokalemia E87.6 ; Mixed hy perlipidemia E78.2 and Hematuria, unspecified type R31.9 [facility] [address] [id number] [address] [place] [phone] Nov, [facility] [address] [id number] [address] [place] [phone] Nov, Hypokalemia E87.6 [place] [address] [id number] [address] [place] [phone] Nov, [place] [address] [id number] [address] [place] [phone] Nov, Abnormal renal ultrasound R9 3.429 [place] [address] [id number] [address] [place] [phone] Nov, Abnormal renal ultrasound R9 3.429 [place] [address] [id number] [address] [place] [phone] Nov, Hematuria, unspecified type R31.9 and 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 [place] [address] [facility] [id number] [address] [place] [address] Nov, Dysuria R30.0 [place] [address] [id number] [address] [place] [address] Oct, Lateral epicondylitis, right elbow M77.11 [place] [address] [id number] [address] [place] [address] Oct, Neuroforaminal stenosis of s pine M99.89 ; Visit for TB skin test Z11.1 and Essential hypertension I10 [place] [address] [id number] [address] [place] [phone] Oct, [place] [address] [facility] [id number] [address] [place] [id number] Oct, Neuroforaminal stenosis of s pine M99.89 [place] [address] [id number] [address] [place] [address] 10 Oct, 2017 Visit for TB skin test Z11.1 [place] [address] [id number] [address] [place] [id number] 05 Oct, 2017 Cystitis without hematuria N 30.90 [place] [address] [id number] [address] [place] [id number] 28 Sep, 2017 Screening breast examination Z12.39 [place] [address] [id number] [address] [place] [id number] 26 Sep, 2017 Dysuria R30.0 and Cystitis w ithout hematuria N30.90 [place] [address] [id number] [address] [place] [phone] 14 Sep, 2017 Essential hypertension I10 a nd 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 [place] [address] [id number] [address] [place] [id number] 04 Sep, 2017 Abnormal glucose R73.09 [place] [address] [id number] [address] [place] [id number] August, Lateral epicondylitis, right elbow M77.11 [place] [address] [id number] [address] [place] [id number] August, Screen for STD (sexually tra nsmitted disease) Z11.3 [place] [address] [id number] [address] [place] [address] August, Neuroforaminal stenosis of s pine M99.89 ; Mixed hyperlipidemia E78.2 ; Elevated fasting glucose R73.01 ; Screening mammogram, encounter for Z12.31 and Encounter for well woman exam without gynecological exam Z00.00 [place] [address] [id number] [address] [place] [address] August, Neuroforaminal stenosis of s pine M99.89 [place] [address] [id number] [address] [place] [phone] August, Essential hypertension I10 ; Hypokalemia E87.6 and Mixed hyperlipidemia E78.2 [facility] [address] [id number] [address] [place] [phone] Jul, [facility] [address] [facility] [id number] [address] [place] [address] Jul, Neuroforaminal stenosis of s pine M99.89 [facility] [address] [id number] [address] [place] [address] Jul, Lateral epicondylitis, right elbow M77.11 [facility] [address] [facility] [id number] [address] [place] [address] Jul, [facility] [address] [facility] [id number] [address] [place] [address] Jun, High ankle sprain of right l ower extremity, initial encounter S93.431A [facility] [address] [id number] [address] [place] [address] Jun, Essential hypertension I10 [facility] [address] [id number] [address] [place] [address] Jun, [facility] [address] [id number] [place] [phone] Jun, [facility] [address] [id number] [address] [place] [id number] Jun, Neuroforaminal stenosis of s jose M99.89 [facility] [address] [id number] [address] [place] [id number] Jun, Pain of right upper extremit y M79.601 and Essential hypertension I10 [facility] [address] [id number] [address] [place] [id number] Jun, [facility] [address] [facility] [id number] [address] [place] [phone] 07 Mar, 2018 Dysuria R30.0 ; Acute cystit is with hematuria N30.01 and Screen for STD (sexually transmitted disease) Z11.3 [place] [address] [place] [id number] [address] [place] [address] May, Chronic pain due to trauma G 89.21 [place] [address] [facility] [id number] [address] [place] [address] May, Essential hypertension I10 [place] [address] [facility] [id number] [address] [place] [address] May, Neuroforaminal stenosis of s pine M99.89 [place] [address] [address] Apr, Allergic reaction, initial e ncounter T78.40XA [place] [address] [place] [id number] [place] [address] Apr, Low back pain, unspecified b ack pain laterality, unspecified chronicity, with sciatica presence unspecified M54.5 ; Acute cystitis with hematuria N30.01 ; 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 ; Bilateral acute serous otitis media, recurrence not specified H65.03 ; Mixed hyperlipidemia E78.2 ; Essential hypertension I10 ; Immunization counseling Z71.89 and Encounter for immunization Z23 [place] [address] [place] [id number] [address] [place] [address] Apr, Neck pain M54.2 [place] [address] [place] [id number] [address] [place] [id number] Mar, Neuroforaminal stenosis of s pine M99.89 [place] [address] [place] [id number] [address] [place] [phone] Mar, Pharyngitis due to other org anism J02.8 [place] [address] [facility] [id number] [address] [place] [id number] Feb, Neuroforaminal stenosis of s pine M99.89 [place] [address] [place] [id number] [address] [place] [id number] 08 Feb, 2017 UTI (urinary tract infection ) N39.0 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 [address] [id number] [address] [place] [address] Feb, [facility] [address] [id number] [address] [place] [id number] Jan, Neuroforaminal stenosis of s pine M99.89 [facility] [address] [id number] [address] [place] [address] Dec, Neuroforaminal stenosis of s pine M99.89 [facility] [address] [id number] [address] [place] [id number] Dec, Acute seasonal allergic rhin itis due to pollen J30.1 [facility] [address] [id number] [address] [place] [id number] 08 Dec, 2016 [facility] [address] [id number] [address] [place] [id number] Dec, Acute seasonal allergic rhin itis, unspecified trigger J30.2 ; Allergic conjunctivitis of both eyes H10.13 and Dysfunction of both eustachian tubes H69.83 [facility] [address] [id number] [address] [place] [address] Dec, [facility] [address] [id number] [address] [place] [id number] Dec, Nevus D22.9 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 [address] [id number] [address] [place] [id number] Oct, Neuroforaminal stenosis of s pine M99.89 [facility] [address] [id number] [address] [place] [address] Sep, Neuroforaminal stenosis of s pine M99.89 [facility] [address] [id number] [address] [place] [phone] Sep, [facility] [address] [id number] [address] [place] [address] August, [facility] [address] [id number] [address] [place] [id number] August, Neck pain M54.2 and Neurofor aminal stenosis of spine M99.89 [facility] [address] [id number] [address] [place] [address] August, Routine gynecological examin ation Z01.419 and Screening breast examination Z12.39 [facility] [address] [id number] [address] [place] [id number] Jul, [facility] [address] [id number] [address] [place] [id number] Jul, [facility] [address] [id number] [address] [place] [id number] Jul, Neuroforaminal stenosis of s pine M99.89 [facility] [address] [id number] [address] [place] [phone] Jul, [facility] [address] [id number] [address] [place] [phone] Jul, Neuroforaminal stenosis of l umbar 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 [facility] [address] [id number] [address] [place] [id number] Jul, [facility] [address] [id number] [address] [place] [id number] Jul, [facility] [address] [id number] [address] [place] [address] Jun, Neuroforaminal stenosis of ayla garcia M99.89 [facility] [address] [id number] [address] [place] [id number] Jun, Uterine leiomyoma, unspecifi ed location D25.9 and Allergic reaction caused by a drug, initial encounter T78.40XA [facility] [address] [facility] [id number] [address] [place] [id number] Jun, [facility] [address] [facility] [id number] [address] [place] [id number] May, UTI symptoms R39.9 and Pain of right sacroiliac joint M53.3 [place] [address] [address] [facility] [id number] [address] [place] [phone] May, Neuroforaminal stenosis of ayla garcia M99.89 [facility] [address] [facility] [id number] [address] [place] [id number] May, [facility] [address] [facility] [id number] [address] [place] [id number] May, Acute mucoid otitis media of left ear H65.112 and Acute non- recurrent maxillary sinusitis J01.00 [place] [id number] [facility] [id number] [address] [place] [id number] May, Acute bacterial conjunctivit is of both eyes H10.33 ; Left arm pain M79.[address] [facility] [address] [facility] [id number] [address] [place] [id number] Apr, [place] [address] [id number] [address] [place] [id number] Apr, Neuroforaminal stenosis of s pine M99.89 ; Neck pain M54.2 ; Chronic pain due to trauma G89.21 ; Mixed hyperlipidemia E78.2 ; Essential hypertension I10 and Hypokalemia E87.6 [facility] [address] [id number] [address] [place] [id number] Mar, Oral candidiasis B37.0 ; Nathaniel roforaminal stenosis of spine M99.89 ; Neck pain M54.2 and Chronic pain due to trauma G89.21 [facility] [address] [id number] [address] [place] [id number] Feb, [facility] [address] [id number] [address] [place] [phone] Feb, [facility] [address] [facility] [id number] [address] [place] [id number] Feb, UTI (urinary tract infection ) N39.0 [facility] [address] [id number] [address] [place] [id number] Feb, Dysuria R30.0 [facility] [address] [facility] [id number] [address] [place] [id number] Feb, Dysuria R30.0 [facility] [address] [id number] [address] [place] [id number] Feb, Neuroforaminal stenosis of s pine M99.89 ; Neck pain M54.2 ; Essential hypertension I10 ; Chronic pain due to trauma G89.21 ; Dysuria R30.0 ; Abnormal MRI, shoulder R93.8 and Acute cystitis without hematuria N30.00 [facility] [address] [id number] [address] [place] [id number] Jan, [facility] [address] [id number] [address] [place] [id number] Jan, [facility] [address] [id number] [address] [place] [id number] Jan, [facility] [address] [id number] [address] [place] [id number] Jan, Abnormal MRI R93.8 [facility] [address] [id number] [address] [place] [id number] 29 Dec, 2015 [facility] [address] [id number] [address] [place] [id number] 15 Dec, 2015 Acute pain of left shoulder M25.512 [facility] [address] [id number] [address] [place] [id number] 09 Dec, 2015 [facility] [address] [id number] [address] [place] [id number] [address], 2015 [facility] [address] [id number] [address] [place] [id number] 07 Dec, 2015 Acute pain of left shoulder M25.512 [facility] [address] [id number] [address] [place] [id number] Nov, [facility] [address] [id number] [address] [place] [id number] Nov, Neuroforaminal stenosis of s pine M99.89 ; Neck pain M54.2 ; Abnormal mammogram R92.8 ; Essential hypertension I10 and Chronic pain due to trauma G89.21 [facility] [address] [id number] [address] [place] [id number] Nov, [facility] [address] [id number] [address] [place] [phone] Oct, Acute stress disorder F43.0 [facility] [address] [id number] [address] [place] [phone] Oct, [facility] [address] [id number] [address] [place] [id number] Oct, [facility] [address] [id number] [address] [place] [phone] Oct, [facility] [address] [id number] [address] [place] [phone] Sep, [facility] [address] [id number] [address] [place] [address] August, [facility] [address] [id number] [address] [place] [id number] Jul, Neuroforaminal stenosis of s pine M99.89 ; Neck pain M54.2 ; Abnormal mammogram R92.8 and Essential hypertension I10 [facility] [address] [id number] [address] [place] [id number] Jul, [facility] [address] [id number] [address] [place] [id number] Jul, [facility] [address] [id number] [address] [place] [id number] Jul, Abnormal mammogram R92.8 [facility] [address] [id number] [address] [place] [id number] Jul, [facility] [address] [id number] [address] [place] [id number] Jul, UTI (urinary tract infection ) N39.0 [facility] [address] [id number] [address] [place] [id number] Jul, Dysuria R30.0 [facility] [address] [id number] [address] [place] [id number] Jun, [facility] [address] [id number] [address] [place] [phone] Jun, [facility] [address] [id number] [address] [place] [address] Jun, Hypokalemia E87.6 and Hematu martina R31.9 [facility] [address] [id number] [address] [place] [id number] Jun, Hypokalemia E87.6 [place] [address] [place] [id number] [address] [place] [id number] Jun, [place] [address] [address] Jun, Hypokalemia E87.6 [place] [address] [address] Jun, Hypokalemia E87.6 [place] [address] [id number] 15 Jun, 2015 Neuroforaminal stenosis of s pine M99.89 ; Hypokalemia E87.6 ; Neck pain M54.2 ; Essential hypertension I10 ; Mixed hyperlipidemia E78.2 and Screening breast examination Z12.39 [facility] [address] [id number] 08 Jun, 2015 Dysuria R30.0 ; UTI (urinary tract infection) N39.0 and Hematuria R31.9 [place] [address] [address] May, [facility] [facility] [address] [id number] 18 May, 2015 High risk sexual behavior Z7 2.51 ; Hypokalemia E87.6 ; Neuroforaminal stenosis of spine M99.89 ; Neck pain M54.2 ; Essential hypertension I10 ; Mixed hyperlipidemia E78.2 ; STD exposure Z20.2 and Concern about STD in female without diagnosis Z71.1 [place] [address] [place] [id number] [address] [place] [id number] 16 May, 2015 Neuroforaminal stenosis of s pine M99.89 ; Neck pain M54.2 ; Hypokalemia E87.6 ; Essential hypertension I10 and Mixed hyperlipidemia E78.2 [place] [address] [place] [id number] [address] [place] [address] May, [facility] [address] [id number] 08 May, 2015 High risk sexual behavior Z7 2.51 ; STD exposure Z20.2 and Concern about STD in female without diagnosis Z71.1 [facility] [address] [place] [id number] [address] [place] [phone] 05 May, 2015 [facility] [address] [id number] Apr, Neuroforaminal stenosis of ayla garcia M99.89 ; Mixed hyperlipidemia E78.2 ; Essential hypertension I10 and Hypokalemia E87.6 [place] [address] [address] Mar, [place] [address] [address] Mar, Hypokalemia E87.6 [place] [address] [address] Mar, Neuroforaminal stenosis of s jose M99.89 ; Mixed hyperlipidemia E78.2 ; Neck pain M54.2 ; Essential hypertension I10 ; Abnormal fasting glucose R73.09 ; Hypokalemia E87.6 and Constipation K59.00 [place] [address] [place] [id number] [address] [place] [address] Feb, Neuroforaminal stenosis of s jose M99.89 ; Mixed hyperlipidemia E78.2 ; Neck pain M54.2 ; Essential hypertension I10 ; Abnormal fasting glucose R73.09 ; Hypokalemia E87.6 and Constipation K59.00 [place] [address] [place] [id number] [address] [place] [id number] Feb, Elevated fasting blood sugar R73.01 [place] [address] [address] Feb, Elevated fasting blood sugar R73.01 [place] [address] [address] Feb, Hair loss L65.9 [facility] [address] [facility] [id number] [address] [place] [phone] Feb, Sinusitis J32.9 ; Essential hypertension I10 and Hair loss L65.9 [facility] [address] [id number] [address] [place] [id number] Jan, [facility] [address] [facility] [id number] [address] [place] [address] Jan, Essential hypertension I10 ; Neuroforaminal stenosis of spine M99.89 ; Neck pain M54.2 ; Mixed hyperlipidemia E78.2 and Anxiety F41.9 [place] [address] [facility] [id number] [address] [place] [phone] Jan, [place] [address] [place] [id number] [address] [place] [address] Jan, Mixed hyperlipidemia E78.2 ; Essential (primary) hypertension I10 ; Strain of muscle, fascia and tendon at neck level, subsequent encounter S16.1XXD and Tension-type headache, unspecified, not intractable G44.209 [place] [id number] [facility] [id number] [address] [place] [id number] Dec, Lumbar back pain 724.2 and N euroforaminal stenosis of spine 724.00 [place] [address] [place] [id number] [address] [place] [phone] Nov, [place] [address] [facility] [id number] [address] [place] [id number] Nov, Lumbar back pain 724.2 and N euroforaminal stenosis of spine 724.00 [place] [address] [place] [id number] [address] [place] [address] Nov, Edema 782.3 ; Lumbar back pa in 724.2 ; Essential hypertension, benign 401.1 ; Hyperlipemia 272.4 ; Neuroforaminal stenosis of spine 724.00 and Post-concussion headache 339.20 [place] [address] [facility] [id number] [address] [place] [phone] Nov, [facility] [address] [id number] [address] [place] [id number] Nov, [facility] [address] [id number] [address] [place] [address] Oct, Essential hypertension, sheridan gn 401.1 [facility] [address] [id number] [address] [place] [id number] Oct, Edema 782.3 ; Lumbar back pa in 724.2 ; Essential hypertension, benign 401.1 ; Hyperlipemia 272.4 ; Neuroforaminal stenosis of spine 724.00 and Post-concussion headache 339.20 [facility] [address] [id number] [address] [place] [address] Oct, [place] [address] [facility] [id number] [address] [place] [address] Oct, Edema 782.3 [facility] [address] [id number] [address] [place] [address] Oct, Lumbar back pain 724.2 [place] [address] [facility] [id number] [address] [place] [id number] Oct, Cervicalgia 723.1 ; Lumbar b ack pain 724.2 and High risk medication use V58.69 [place] [address] [facility] [id number] [address] [place] [phone] Sep, [facility] [address] [id number] [address] [place] [id number] Sep, Lumbar strain 847.2 [place] [address] [facility] [id number] [address] [place] [phone] August, Edema 782.3 and Eustachian t ube dysfunction 381.81 [facility] [address] [facility] [id number] [address] [place] [id number] August, [place] [address] [id number] [address] [place] [address] August, Eustachian tube dysfunction 381.81 [facility] [address] [id number] [address] [place] [id number] Jul, Otalgia 388.70 and Otitis me jonathon 382.9 [facility] [address] [id number] [address] [place] [id number] Jul, [facility] [address] [id number] [address] [place] [phone] Jul, [facility] [address] [id number] [address] [place] [phone] Jul, [facility] [address] [id number] [address] [place] [address] Jul, [facility] [address] [id number] [address] [place] [address] Jul, [facility] [address] [id number] [address] [place] [phone] Jun, [facility] [address] [id number] [address] [place] [phone] Jun, [facility] [address] [id number] [address] [place] [phone] Jun, [facility] [address] [id number] [address] [place] [phone] May, [facility] [address] [id number] [address] [place] [phone] May, [facility] [address] [id number] [address] [place] [phone] May, [facility] [address] [id number] [address] [place] [id number] May, [facility] [address] [id number] [address] [place] [phone] May, [facility] [address] [id number] [address] [place] [address], [place] [address] May, [facility] [address] [id number] [address] [place] [address], [place] [address] May, [facility] [address] [id number] [address] [place] [address], [place] [address] May, [facility] [address] [id number] [address] [place] [address], [place] [address] May, [facility] [address] [id number] [address] [place] [address], [place] [address] May, [facility] [address] [id number] [address] [place] [address], [place] [address] Apr, [facility] [address] [id number] [address] [place] [address], [place] [address] Apr, [facility] [address] [id number] [address] [place] [address], [place] [address] Apr, [facility] [address] [id number] [address] [place] [address], [place] [address] Apr, [facility] [address] [id number] [address] [place] [address], [place] [address] Apr, [facility] [address] [id number] [address] [place] [address], [place] [address] Apr, [facility] [address] [id number] [address] [place] [address], [place] [address] Apr, [facility] [address] [id number] [address] [place] [address], [place] [address] Apr, [facility] [address] [id number] [address] [place] [address], [place] [address] Apr, [facility] [address] [id number] [address] [place] [address], [place] [address] Apr, [facility] [address] [id number] [address] [place] [address], [place] [address] Apr, [facility] [address] [id number] [address] [place] [address], [place] [address] Apr, [facility] [address] [id number] [address] [place] [address], [place] [address] Apr, [facility] [address] [id number] [address] [place] [address], [place] [address] Apr, [facility] [address] [id number] [address] [place] [address], [place] [address] Apr, [facility] [address] [id number] [address] [place] [address], [place] [address] Mar, [facility] [address] [id number] [address] [place] [address], [place] [address] Mar, [facility] [address] [id number] [address] [place] [address], [place] [address] Mar, [facility] [address] [id number] [address] [place] [address], [place] [address] Mar, [facility] [address] [id number] [address] [place] [address], [place] [address] Feb, [facility] [address] [id number] [address] [place] [address], [place] [address] Feb, [facility] [address] [id number] [address] [place] [address], [place] [address] Feb, [facility] [address] [id number] [address] [place] [address], [place] [address] Feb, [facility] [address] [id number] [address] [place] [address], [place] [address] Jan, [facility] [address] [id number] [address] [place] [address], [place] [address] Jan, [facility] [address] [id number] [address] [place] [address], [place] [address] Jan, [facility] [address] [id number] [address] [place] [address], [place] [address] Jan, [facility] [address] [id number] [address] [place] [address], [place] [address] Jan, [facility] [address] [id number] [address] [place] [address], [place] [address] Jan, [facility] [address] [id number] [address] [place] [address], [place] [address] Jan, [facility] [address] [id number] [address] [place] [address], [place] [address] Jan, [facility] [address] [id number] [address] [place] [address], [place] [address] Dec, [facility] [address] [id number] [address] [place] [address], [place] [address] Dec, [facility] [address] [id number] [address] [place] [address], [place] [address] Dec, [facility] [address] [id number] [address] [place] [address], [place] [address] Dec, [facility] [address] [id number] [address] [place] [address], [place] [address] Oct, [facility] [address] [id number] [address] [place] [address], [place] [address] Oct, [facility] [address] [id number] [address] [place] [address], [place] [address] Oct, [facility] [address] [id number] [address] [place] [address], [place] [address] Oct, [facility] [address] [id number] [address] [place] [address], [place] [address] Oct, [facility] [address] [id number] [address] [place] [address], [place] [address] Oct, 2013 [facility] [address] [id number] [address] [place] [address], [place] [address] Oct, [facility] [address] [id number] [facility] [place] [address] Oct, [facility] [address] [id number] [address] [place] [address], [place] [address] Sep, [facility] [address] [id number] [address] [place] [address], [place] [address] Sep, [facility] [address] [id number] [address] [place] [address], [place] [address] Sep, [facility] [address] [id number] [address] [place] [address], [place] [address] Sep, [facility] [address] [id number] [address] [place] [address], [place] [address] Sep, [facility] [address] [id number] [address] [place] [address], [place] [address] Sep, [facility] [address] [id number] [address] [place] [address], [place] [address] Sep, [facility] [address] [id number] [address] [place] [address], [place] [address] Sep, [facility] [address] [id number] [address] [place] [address], [place] [address] Sep, [facility] [address] [id number] [address] [place] [address], [place] [address] Sep, [facility] [address] [id number] [address] [place] [address], [place] [address] August, [facility] [address] [id number] [address] [place] [address], [place] [address] August, [facility] [address] [id number] [address] [place] [address], [place] [address] August, [facility] [address] [id number] [address] [place] [address], [place] [address] August, [facility] [address] [id number] [facility] [place] [address] August, [facility] [address] [id number] [address] [place] [address], [place] [address] August, [facility] [address] [id number] [address] [place] [address], [place] [address] August, [facility] [address] [id number] [address] [place] [address], [place] [address] August, [facility] [address] [id number] [address] [place] [address], [place] [address] August, [facility] [address] [id number] [address] [place] [address], [place] [address] August, [facility] [address] [id number] [address] [place] [address], [place] [address] August, [facility] [address] [id number] [address] [place] [address], [place] [address] August, [facility] [address] [id number] [address] [place] [address], [place] [address] Jul, [facility] [address] [id number] [address] [place] [address], [place] [address] Jul, [facility] [address] [id number] [address] [place] [address], [place] [address] Jul, [facility] [address] [id number] [address] [place] [address], [place] [address] Jul, [facility] [address] [id number] [address] [place] [address], [place] [address] Jul, [facility] [address] [id number] [address] [place] [address], [place] [address] Jul, [facility] [address] [id number] [address] [place] [address], [place] [address] Jun, [facility] [address] [id number] [address] [place] [address], [place] [address] Jun, [facility] [address] [id number] [address] [place] [address], [place] [address] May, [facility] [address] [id number] [address] [place] [address], [place] [address] May, [facility] [address] [id number] [address] [place] [address], [place] [address] Apr, [facility] [address] [id number] [address] [place] [address], [place] [address] Apr, [facility] [address] [id number] [address] [place] [address], [place] [address] Apr, [facility] [address] [id number] [address] [place] [address], [place] [address] Apr, [facility] [address] [id number] [address] [place] [address], [place] [address] Apr, [facility] [address] [id number] [address] [place] [address], [place] [address] Apr, [facility] [address] [id number] [address] [place] [address], [place] [address] Apr, [facility] [address] [id number] [address] [place] [address], [place] [address] Apr, [facility] [address] [id number] [address] [place] [address], [place] [address] Apr, [facility] [address] [id number] [address] [place] [address], [place] [address] Apr, [facility] [address] [id number] [address] [place] [address], [place] [address] Apr, [facility] [address] [id number] [address] [place] [address], [place] [address] Apr, [facility] [facility] [address] [id number] [address] [place] [address], [place] [address] Apr, [facility] [address] [id number] [address] [place] [address] Mar, [facility] [address] [id number] [address] [place] [address], [place] [address] Mar, [facility] [address] [id number] [address] [place] [address] Mar, [facility] [address] [id number] [address] [place] [address], [place] [address] Mar, [facility] [address] [id number] [address] [place] [address], [place] [address] Feb, [facility] [address] [id number] [address] [place] [address], [place] [address] Feb, [facility] [address] [id number] [address] [place] [address], [place] [address] Feb, [facility] [address] [id number] [address] [place] [id number] Feb, [facility] [address] [id number] [address] [place] [address], [place] [address] Jan, [facility] [address] [id number] [address] [place] [id number] 14 Jan, 2013 [facility] [address] [id number] [address] [place] [id number] Jan, [facility] [address] [id number] [address] [place] [id number] Jan, [facility] [address] [id number] [address] [place] [id number] Jan, [facility] [address] [id number] [address] [place] [id number] Jan, [facility] [address] [id number] [address] [place] [id number] Jan, [facility] [address] [id number] [address] [place] [id number] 09 Jan, 2013 [facility] [address] [id number] [address] [place] [address], [place] [address] Jan, [facility] [address] [id number] [address] [place] [address], [place] [address] 26 Dec, 2012 [facility] [address] [id number] [address] [place] [address], [place] [address] 16 Dec, 2012 [facility] [address] [id number] [address] [place] [address], [place] [address] 16 Dec, 2012 [facility] [address] [id number] [address] [place] [address], [place] [address] 13 Dec, 2012 [facility] [address] [id number] [address] [place] [address], [place] [address] Nov, [facility] [address] [id number] [address] [place] [address], [place] [address] Nov, [facility] [address] [id number] [address] [place] [address], [place] [address] Nov, [facility] [address] [id number] [address] [place] [address], [place] [address] Nov, [facility] [address] [id number] [address] [place] [address], [place] [address] Oct, [facility] [address] [id number] [address] [place] [address], [place] [address] Sep, [facility] [address] [id number] [address] [place] [address], [place] [address] August, [facility] [address] [id number] [address] [place] [address], [place] [address] August, [facility] [address] [id number] [address] [place] [address], [place] [address] August, [facility] [address] [id number] [address] [place] [address], [place] [address] August, [facility] [address] [id number] [address] [place] [address], [place] [address] 15 Aug, 2012 [facility] [address] [id number] [address] [place] [address], [place] [address] August, [facility] [address] [id number] [address] [place] [address], [place] [address] August, [facility] [address] [id number] [address] [place] [address], [place] [address] August, [facility] [address] [id number] [address] [place] [address], [place] [address] August, [facility] [address] [id number] [address] [place] [address], [place] [address] August, [facility] [address] [id number] [address] [place] [address], [place] [address] August, [facility] [address] [id number] [address] [place] [address], [place] [address] August, [facility] [address] [id number] [address] [place] [address], [place] [address] Jul, [facility] [address] [id number] [address] [place] [address], [place] [address] Jul, [facility] [address] [id number] [address] [place] [address], [place] [address] 18 Jul, 2012 [facility] [address] [id number] [address] [place] [address], [place] [address] 15 Jul, 2012 [facility] [address] [id number] [address] [place] [address], [place] [address] Jul, [facility] [address] [id number] [address] [place] [address], [place] [address] Jul, [facility] [address] [id number] [address] [place] [address], [place] [address] 04 Jul, 2012 [facility] [address] [id number] [address] [place] [address], [place] [address] Jul, [facility] [address] [id number] [address] [place] [address], [place] [address] Jul, [facility] [address] [id number] [address] [place] [address], [place] [address] Jul, [facility] [address] [id number] [address] [place] [address], [place] [address] Jul, [facility] [address] [id number] [address] [place] [address], [place] [address] Jun, [facility] [address] [id number] [address] [place] [address], [place] [address] Jun, [facility] [address] [id number] [address] [place] [address], [place] [address] Jun, [facility] [address] [id number] [address] [place] [address], [place] [address] Jun, [facility] [address] [id number] [address] [place] [address], [place] [address] May, [facility] [address] [id number] [address] [place] [address], [place] [address] 14 May, 2012 [facility] [address] [id number] [address] [place] [address], [place] [address] 05 May, 2012 [facility] [address] [id number] [address] [place] [address], [place] [address] May, [facility] [address] [id number] [address] [place] [address], [place] [address] May, [facility] [address] [id number] [address] [place] [address], [place] [address] May, [facility] [address] [id number] [address] [place] [address], [place] [address] Apr, [facility] [address] [id number] [address] [place] [address], [place] [address] Apr, [facility] [address] [id number] [address] [place] [address], [place] [address] Apr, [facility] [address] [id number] [address] [place] [address], [place] [address] Apr, [facility] [address] [id number] [address] [place] [address], [place] [address] 15 Mar, 2012 [facility] [address] [id number] [address] [place] [address], [place] [address] 14 Mar, 2012 [facility] [address] [id number] [address] [place] [address], [place] [address] Mar, [facility] [address] [id number] [address] [place] [address], [place] [address] Mar, [facility] [address] [id number] [address] [place] [address], [place] [address] Mar, [facility] [address] [id number] [address] [place] [address], [place] [address] Mar, [facility] [address] [id number] [address] [place] [address], [place] [address] Mar, [facility] [address] [id number] [address] [place] [address], [place] [address] Feb, [facility] [address] [id number] [address] [place] [address], [place] [address] Feb, [facility] [address] [id number] [address] [place] [address], [place] [address] Feb, [facility] [address] [id number] [address] [place] [address], [place] [address] Feb, [facility] [address] [id number] [address] [place] [address], [place] [address] Jan, [facility] [address] [id number] [address] [place] [address], [place] [address] Jan, [facility] [address] [id number] [address] [place] [address], [place] [address] Jan, [facility] [address] [id number] [address] [place] [address] [place] [address] Jan, [facility] [address] [id number] [address] [place] [address], [place] [address] Jan, [facility] [address] [id number] [address] [place] [address], [place] [address] Jan, [facility] [address] [id number] [address] [place] [address], [place] [address] Dec, [facility] [address] [id number] [address] [place] [address], [place] [address] Dec, [facility] [address] [id number] [address] [place] [address], [place] [address] Nov, [facility] [address] [id number] [address] [place] [address], [place] [address] Sep, [facility] [address] [id number] [address] [place] [address], [place] [address] August, [facility] [address] [id number] [address] [place] [address], [place] [address] August, [facility] [address] [id number] [address] [place] [address], [place] [address] August, [facility] [address] [id number] [address] [place] [address], [place] [address] August, [facility] [address] [id number] [address] [place] [address], [place] [address] August, [facility] [address] [id number] [address] [place] [address], [place] [address] Jun, [facility] [address] [id number] [address] [place] [address], [place] [address] Jun, [facility] [address] [id number] [address] [place] [address], [place] [address] Apr, [facility] [address] [id number] [address] [place] [address], [place] [address] Apr, [facility] [address] [id number] [address] [place] [address], [place] [address] 23 Mar, 2011 [facility] [address] [id number] [address] [place] [address], [place] [address] 22 Feb, 2011 [facility] [address] [id number] [address] [place] [address], [place] [address] 14 Feb, 2011 [facility] [address] [id number] [address] [place] [address], [place] [address] 14 Feb, 2011 [facility] [address] [id number] [address] [place] [address], [place] [address] 17 Jan, 2011 [facility] [address] [id number] [address] [place] [address], [place] [address] 15 Jan, 2011 [facility] [address] [id number] [address] [place] [address], [place] [address] 15 Jan, 2011 [facility] [address] [id number] [address] [place] [address], [place] [address] 14 Jan, 2011 [facility] [address] [id number] [address] [place] [address], [place] [address] 15 May, 2010 [facility] [address] [id number] [address] [place] [address], [place] [address] 04 Mar, 2010 [facility] [address] [id number] [address] [place] [address], [place] [address] Oct, [facility] [address] [id number] [address] [place] [address], [place] [address] Sep, [facility] [address] [id number] [address] [place] [address], [place] [address] Mar, [facility] [address] [id number] [address] [place] [address], [place] [address] Jan, [facility] [address] [id number] [address] [place] [address], [place] [address] Jan, [facility] [address] [id number] [address] [place] [address] May, IMMUNIZATIONS No Known Immunizations SOCIAL HISTORY Never Assessed REASON FOR VISIT PLAN OF CARE VITAL SIGNS Height 62 in 2012-05-09 Weight 170 lbs 2012-05-09 Temperature 96.9 degrees Fahrenheit 2012-05-09 Heart Rate 80 bpm 2012-05-09 Respiratory Rate 18 2012-05-09 Blood pressure systolic 110 mmHg 2012-05-09 Blood pressure diastolic 70 mmHg 2012-05-09 MEDICATIONS Unknown Medications RESULTS No Results PROCEDURES Procedure Date Ordered Result Body Site ECHO TRANSTHORACIC May 09, 2012 INSTRUCTIONS MEDICATIONS ADMINISTERED No Known [...]
--- OUTSIDE RECORDS SUMMARY | 2019-11-23 06:17 | XMS REPORT ---
Author Author Liana Coe Doctor Organization [facility] Address Unknown Phone Unavailable Care Team Providers Care Computer Forensics Examiner Name Role Phone Migration, Doctor Unavailable Unavailable PROBLEMS Type Condition ICD9-CM Code [id number] Code Onset Dates Condition S tatus SNOMED Code Problem Anxiety F41.9 Active 01047059 Problem Neck pain M54.2 Active 46549724 Problem Neuroforaminal stenosis of spine M99.89 Active 170080798131 Problem Hematuria, unspecified type R31.9 Ac tive 40276945 Problem Seasonal allergies J30.2 Active 4 79291953 Problem Abnormal glucose R73.09 Active 102 732401 Problem Rhinosinusitis J32.9 Active 44675 4004 Problem Abnormal renal ultrasound R93.429 Acti ve [id number] Problem Essential hypertension I10 Active 22130283 Problem Mixed hyperlipidemia E78.2 Active 03024545 Problem Hypokalemia E87.6 Active 68163024 Problem Chronic pain due to trauma G89.21 Act juanis [id number] ALLERGIES No Information ENCOUNTERS Encounter Location Date Diagnosis [place] [address] [facility] [id number] [address] [place] [address] Jul, [facility] [address] [place] [id number] [address] [place] [address] Jun, Hypokalemia E87.6 [facility] [address] [facility] [id number] [address] [place] [address] Jun, [facility] [address] [facility] [id number] [address] [place] [address] Jun, Neuroforaminal stenosis of s pine M99.89 [facility] [address] [place] [id number] [address] [place] [address] Jun, Lateral epicondylitis, left elbow M77.12 and Medial epicondylitis, left elbow M77.02 [facility] [address] [id number] [address] [place] [address] 16 Jun, 2019 Foraminal stenosis of lumbar region M48.061 ; Segmental dysfunction of thoracic region M99.02 ; Segmental dysfunction of lumbar region M99.03 and Segmental dysfunction of sacral region M99.04 [place] [address] [id number] [address] [place] [address] May, Left elbow pain M25.522 [place] [address] [id number] [address] [place] [address] May, [place] [address] [id number] [address] [place] [address] May, Left elbow pain M25.522 [place] [address] [id number] [address] [place] [address] May, Neuroforaminal stenosis of s pine M99.89 [place] [address] [facility] [id number] [address] [place] [address] May, Rhinosinusitis J32.9 ; Left elbow pain M25.522 and Neck pain M54.2 [place] [address] [facility] [id number] [address] [place] [address] 14 May, 2019 Lateral epicondylitis of lef t elbow M77.12 [place] [address] [facility] [id number] [address] [place] [address] Apr, Neuroforaminal stenosis of s pine M99.89 [place] [address] [id number] [address] [place] [address] Apr, Essential hypertension I10 a nd Mixed hyperlipidemia E78.2 [place] [address] [facility] [id number] [address] [place] [address] Mar, Neuroforaminal stenosis of s pine M99.89 [place] [address] [facility] [id number] [address] [place] [address] Mar, Epicondylitis, lateral, left M77.12 [facility] [address] [facility] [id number] [address] [place] [address] Mar, [facility] [address] [facility] [id number] [address] [place] [address] Mar, Neuroforaminal stenosis of s pine M99.89 [facility] [address] [facility] [id number] [address] [place] [address] Feb, Neuroforaminal stenosis of s pine M99.89 ; Essential hypertension I10 ; Mixed hyperlipidemia E78.2 ; Encounter for immunization Z23 and Seasonal allergies J30.2 [facility] [address] [facility] [id number] [address] [place] [address] Jan, Neuroforaminal stenosis of s pine M99.89 [facility] [address] [place] [id number] [address] [place] [address] Dec, Neuroforaminal stenosis of s pine M99.89 [facility] [address] [place] [id number] [address] [place] [address] Dec, Neuroforaminal stenosis of s pine M99.89 [facility] [address] [place] [id number] [address] [place] [address] Nov, [facility] [address] [place] [id number] [address] [place] [address] Nov, Neuroforaminal stenosis of s pine M99.89 [facility] [address] [place] [id number] [address] [place] [address] Nov, Acute non-recurrent maxillar y sinusitis J01.00 [facility] [address] [facility] [id number] [address] [place] [address] Oct, Hypokalemia E87.6 [facility] [address] [facility] [id number] [address] [place] [address] Oct, Wasp sting, undetermined int ent, initial encounter T63.464A and Cellulitis of left lower extremity L03.116 [place] [address] [id number] [address] [place] [address] Oct, Neuroforaminal stenosis of s pine M99.89 [place] [address] [id number] [address] [place] [address] Sep, [place] [address] [id number] [address] [place] [address] Sep, [place] [address] [id number] [address] [place] [address] Sep, Routine screening for STI (s exually transmitted infection) Z11.3 [place] [address] [id number] [address] [place] [address] 14 Sep, 2018 Routine screening for STI (s exually transmitted infection) Z11.3 ; Well woman exam with routine gynecological exam Z01.419 and Breast cancer screening Z12.39 [place] [address] [id number] [address] [place] [address] Sep, Neuroforaminal stenosis of s pine M99.89 [place] [address] [id number] [address] [place] [address] August, Neuroforaminal stenosis of s pine M99.89 [place] [address] [id number] [address] [place] [address] August, Neuroforaminal stenosis of s pine M99.89 ; Chronic pain due to trauma G89.21 and Mixed hyperlipidemia E78.2 [place] [address] [id number] [address] [place] [address] Jul, Viral upper respiratory illn ess J06.9 and Acute non-recurrent frontal sinusitis J01.10 [place] [address] [facility] [id number] [address] [place] [address] Jul, Congestion of nasal sinus R0 9.81 [place] [address] [facility] [id number] [address] [place] [address] Jul, Neuroforaminal stenosis of s pine M99.89 and Essential hypertension I10 [facility] [address] [id number] [address] [place] [address] May, Neuroforaminal stenosis of s pine M99.89 [facility] [address] [id number] [address] [place] [address] May, [facility] [address] [id number] [address] [place] [address] May, Congestion of nasal sinus R0 9.81 [facility] [address] [id number] [address] [place] [address] May, [facility] [address] [id number] [address] [place] [address] Apr, Neuroforaminal stenosis of s pine M99.89 [facility] [address] [id number] [address] [place] [address] Apr, Neuroforaminal stenosis of s pine M99.89 and Chronic pain due to trauma G89.21 [facility] [address] [id number] [address] [place] [address] Mar, UTI (urinary tract infection ) N39.0 [facility] [address] [id number] [address] [place] [address] Mar, Vertigo R42 [facility] [address] [id number] [address] [place] [address] Mar, Neuroforaminal stenosis of s pine M99.89 [facility] [address] [id number] [address] [place] [address] Feb, Extensor tendon disruption M 67.89 [facility] [address] [id number] [address] [place] [address] Feb, Neuroforaminal stenosis of s pine M99.89 and High risk medication use Z79.899 [facility] [address] [id number] [address] [place] [address] Jan, Hypokalemia E87.6 [place] [address] [facility] [id number] [address] [place] [address] Jan, Flank pain R10.9 and Acute r ight-sided low back pain without sciatica M54.5 [facility] [address] [facility] [id number] [address] [place] [address] Jan, Hypokalemia E87.6 [place] [address] [facility] [id number] [address] [place] [address] Jan, [place] [address] [facility] [id number] [place] [address] Jan, URI, acute J06.9 [place] [address] [facility] [id number] [address] [place] [address] Jan, Neuroforaminal stenosis of s pine M99.89 [place] [address] [place] [id number] [address] [place] [address] 13 Dec, 2017 Lateral epicondylitis, right elbow M77.11 [place] [address] [place] [id number] [address] [place] [address] 11 Dec, 2017 Allergic rhinitis due to monica rosalina, unspecified seasonality J30.1 and Allergic conjunctivitis of both eyes H10.13 [place] [address] [place] [id number] [address] [place] [address] 10 Dec, 2017 Neuroforaminal stenosis of s pine M99.89 [place] [address] [facility] [id number] [address] [place] [address] 06 Dec, 2017 Mixed hyperlipidemia E78.2 [place] [address] [place] [id number] [place] [address] 05 Dec, 2017 Abnormal glucose R73.09 ; Ab normal renal ultrasound R93.429 ; Dysuria R30.0 ; Cystitis without hematuria N30.90 ; Hypokalemia E87.6 ; Mixed hyperlipidemia E78.2 and Hematuria, unspecified type R31.9 [place] [address] [id number] [address] [place] [address] Nov, Hypokalemia E87.6 ; Mixed hy perlipidemia E78.2 and Hematuria, unspecified type R31.9 [facility] [address] [id number] [address] [place] [address] Nov, [facility] [address] [id number] [address] [place] [address] Nov, Hypokalemia E87.6 [place] [address] [id number] [address] [place] [address] Nov, [place] [address] [id number] [address] [place] [address] Nov, Abnormal renal ultrasound R9 3.429 [place] [address] [id number] [address] [place] [address] Nov, Abnormal renal ultrasound R9 3.429 [place] [address] [id number] [address] [place] [address] Nov, Hematuria, unspecified type R31.9 and 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 [place] [address] [facility] [id number] [address] [place] [address] Nov, Dysuria R30.0 [place] [address] [id number] [address] [place] [address] Oct, Lateral epicondylitis, right elbow M77.11 [place] [address] [id number] [address] [place] [address] Oct, Neuroforaminal stenosis of s pine M99.89 ; Visit for TB skin test Z11.1 and Essential hypertension I10 [place] [address] [id number] [address] [place] [address] Oct, [place] [address] [facility] [id number] [address] [place] [address] Oct, Neuroforaminal stenosis of s pine M99.89 [place] [address] [id number] [address] [place] [address] 10 Oct, 2017 Visit for TB skin test Z11.1 [place] [address] [id number] [address] [place] [address] 05 Oct, 2017 Cystitis without hematuria N 30.90 [place] [address] [id number] [address] [place] [address] 28 Sep, 2017 Screening breast examination Z12.39 [place] [address] [id number] [address] [place] [address] 26 Sep, 2017 Dysuria R30.0 and Cystitis w ithout hematuria N30.90 [place] [address] [id number] [address] [place] [address] 14 Sep, 2017 Essential hypertension I10 a nd Neuroforaminal stenosis of spine M99.89 [place] [address] [id number] [address] [place] [address] 04 Sep, 2017 Abnormal glucose R73.09 [place] [address] [id number] [address] [place] [address] August, Lateral epicondylitis, right elbow M77.11 [place] [address] [id number] [address] [place] [address] August, Screen for STD (sexually tra nsmitted disease) Z11.3 [place] [address] [id number] [address] [place] [address] August, Neuroforaminal stenosis of [place] pine M99.89 ; Mixed hyperlipidemia E78.2 ; Elevated fasting glucose R73.01 ; Screening mammogram, encounter for Z12.31 and Encounter for well woman exam without gynecological exam Z00.00 [place] [address] [id number] [address] [place] [address] August, Neuroforaminal stenosis of s pine M99.89 [place] [address] [id number] [address] [place] [address] August, Essential hypertension I10 ; Hypokalemia E87.6 and Mixed hyperlipidemia E78.2 [facility] [address] [id number] [address] [place] [address] Jul, [facility] [address] [facility] [id number] [address] [place] [address] Jul, Neuroforaminal stenosis of s pine M99.89 [facility] [address] [id number] [address] [place] [address] Jul, Lateral epicondylitis, right elbow M77.11 [facility] [address] [facility] [id number] [address] [place] [address] Jul, [facility] [address] [facility] [id number] [address] [place] [address] Jun, High ankle sprain of right l ower extremity, initial encounter S93.431A [facility] [address] [id number] [address] [place] [address] Jun, Essential hypertension I10 [facility] [address] [id number] [address] [place] [address] Jun, [facility] [address] [id number] [address] [place] [address] Jun, [facility] [address] [id number] [address] [place] [address] Jun, Neuroforaminal stenosis of s jose M99.89 [facility] [address] [id number] [address] [place] [address] Jun, Pain of right upper extremit y M79.601 and Essential hypertension I10 [facility] [address] [id number] [address] [place] [address] Jun, [facility] [address] [facility] [id number] [address] [place] [address] 07 Mar, 2018 Dysuria R30.0 ; Acute cystit is with hematuria N30.01 and Screen for STD (sexually transmitted disease) Z11.3 [place] [address] [place] [id number] [address] [place] [address] May, Chronic pain due to trauma G 89.21 [place] [address] [facility] [id number] [address] [place] [address] May, Essential hypertension I10 [place] [address] [facility] [id number] [address] [place] [address] May, Neuroforaminal stenosis of s pine M99.89 [place] [address] [address] Apr, Allergic reaction, initial e ncounter T78.40XA [place] [address] [place] [id number] [place] [address] Apr, Low back pain, unspecified b ack pain laterality, unspecified chronicity, with sciatica presence unspecified M54.5 ; Acute cystitis with hematuria N30.01 ; Neuroforaminal stenosis of spine M99.89 ; Bilateral acute serous otitis media, recurrence not specified H65.03 ; Mixed hyperlipidemia E78.2 ; Essential hypertension I10 ; Immunization counseling Z71.89 and Encounter for immunization Z23 [place] [address] [place] [id number] [address] [place] [address] Apr, Neck pain M54.2 [place] [address] [place] [id number] [address] [place] [address] Mar, Neuroforaminal stenosis of s pine M99.89 [place] [address] [place] [id number] [address] [place] [address] Mar, Pharyngitis due to other org anism J02.8 [place] [address] [facility] [id number] [address] [place] [address] Feb, Neuroforaminal stenosis of s pine M99.89 [place] [address] [place] [id number] [address] [place] [address] 08 Feb, 2017 UTI (urinary tract infection ) N39.0 [facility] [address] [id number] [address] [place] [address] 07 Feb, 2017 Recent urinary tract infecti on Z87.440 ; Neuroforaminal stenosis of spine M99.89 ; Neck pain M54.2 ; Chronic pain due to trauma G89.21 and Recurrent UTI N39.0 [facility] [address] [id number] [address] [place] [address] Feb, [facility] [address] [id number] [address] [place] [address] Jan, Neuroforaminal stenosis of s pine M99.89 [facility] [address] [id number] [address] [place] [address] Dec, Neuroforaminal stenosis of s pine M99.89 [facility] [address] [id number] [address] [place] [address] Dec, Acute seasonal allergic rhin itis due to pollen J30.1 [facility] [address] [id number] [address] [place] [address] 08 Dec, 2016 [facility] [address] [id number] [address] [place] [address] Dec, Acute seasonal allergic rhin itis, unspecified trigger J30.2 ; Allergic conjunctivitis of both eyes H10.13 and Dysfunction of both eustachian tubes H69.83 [facility] [address] [id number] [address] [place] [address] Dec, [facility] [address] [id number] [address] [place] [address] Dec, Nevus D22.9 [facility] [address] [id number] [address] [place] [address] Nov, Chronic pain due to trauma G 89.21 and Neuroforaminal stenosis of spine M99.89 [place] [address] [id number] [address] [place] [address] Nov, Neuroforaminal stenosis of s pine M99.89 ; Essential hypertension I10 ; Mixed hyperlipidemia E78.2 ; Hypokalemia E87.6 ; Neck pain M54.2 and Nevus D22.9 [facility] [address] [id number] [address] [place] [address] Oct, Neuroforaminal stenosis of s pine M99.89 [facility] [address] [id number] [address] [place] [address] Sep, Neuroforaminal stenosis of s pine M99.89 [facility] [address] [id number] [address] [place] [address] Sep, [facility] [address] [id number] [address] [place] [address] August, [facility] [address] [id number] [address] [place] [address] August, Neck pain M54.2 and Neurofor aminal stenosis of spine M99.89 [facility] [address] [id number] [address] [place] [address] August, Routine gynecological examin ation Z01.419 and Screening breast examination Z12.39 [facility] [address] [id number] [address] [place] [address] Jul, [facility] [address] [id number] [address] [place] [address] Jul, [facility] [address] [id number] [address] [place] [address] Jul, Neuroforaminal stenosis of s pine M99.89 [facility] [address] [id number] [address] [place] [address] Jul, [facility] [address] [id number] [address] [place] [address] Jul, Neuroforaminal stenosis of l umbar 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 [facility] [address] [id number] [address] [place] [address] Jul, [facility] [address] [id number] [address] [place] [address] Jul, [facility] [address] [id number] [address] [place] [address] Jun, Neuroforaminal stenosis of ayla garcia M99.89 [facility] [address] [id number] [address] [place] [address] Jun, Uterine leiomyoma, unspecifi ed location D25.9 and Allergic reaction caused by a drug, initial encounter T78.40XA [facility] [address] [facility] [id number] [address] [place] [address] Jun, [facility] [address] [facility] [id number] [address] [place] [address] May, UTI symptoms R39.9 and Pain of right sacroiliac joint M53.3 [place] [address] [facility] [id number] [address] [place] [address] May, Neuroforaminal stenosis of ayla garcia M99.89 [facility] [address] [facility] [id number] [address] [place] [address] May, [facility] [address] [facility] [id number] [address] [place] [address] May, Acute mucoid otitis media of left ear H65.112 and Acute non- recurrent maxillary sinusitis J01.00 [place] [address] [facility] [id number] [address] [place] [address] May, Acute bacterial conjunctivit is of both eyes H10.33 ; Left arm pain M79.602 and Hypokalemia E87.6 [facility] [address] [facility] [id number] [address] [place] [phone] Apr, [place] [address] [id number] [address] [place] [phone] Apr, Neuroforaminal stenosis of s pine M99.89 ; Neck pain M54.2 ; Chronic pain due to trauma G89.21 ; Mixed hyperlipidemia E78.2 ; Essential hypertension I10 and Hypokalemia E87.6 [facility] [address] [id number] [address] [place] [id number] Mar, Oral candidiasis B37.0 ; Nathaniel roforaminal stenosis of spine M99.89 ; Neck pain M54.2 and Chronic pain due to trauma G89.21 [facility] [address] [id number] [address] [place] [phone] Feb, [facility] [address] [id number] [address] [place] [phone] Feb, [facility] [address] [facility] [id number] [address] [place] [phone] Feb, UTI (urinary tract infection ) N39.0 [facility] [address] [id number] [address] [place] [phone] Feb, Dysuria R30.0 [facility] [address] [facility] [id number] [address] [place] [id number] Feb, Dysuria R30.0 [facility] [address] [id number] [address] [place] [phone] Feb, Neuroforaminal stenosis of s pine M99.89 ; Neck pain M54.2 ; Essential hypertension I10 ; Chronic pain due to trauma G89.21 ; Dysuria R30.0 ; Abnormal MRI, shoulder R93.8 and Acute cystitis without hematuria N30.00 [facility] [address] [id number] [address] [place] [phone] Jan, [facility] [address] [id number] [address] [place] [phone] Jan, [facility] [address] [id number] [place] [address] Jan, [facility] [address] [id number] [address] [place] [address] Jan, Abnormal MRI R93.8 [facility] [address] [id number] [address] [place] [address] 29 Dec, 2015 [facility] [address] [id number] [address] [place] [address] 15 Dec, 2015 Acute pain of left shoulder M25.512 [facility] [address] [id number] [address] [place] [address] 09 Dec, 2015 [facility] [address] [id number] [address] [place] [id number] 08 Dec, 2015 [facility] [address] [id number] [address] [place] [address] 07 Dec, 2015 Acute pain of left shoulder M25.512 [facility] [address] [id number] [address] [place] [address] Nov, [facility] [address] [id number] [address] [place] [address] Nov, Neuroforaminal stenosis of s pine M99.89 ; Neck pain M54.2 ; Abnormal mammogram R92.8 ; Essential hypertension I10 and Chronic pain due to trauma G89.21 [facility] [address] [id number] [address] [place] [address] Nov, [facility] [address] [id number] [address] [place] [address] Oct, Acute stress disorder F43.0 [facility] [address] [id number] [address] [place] [address] Oct, [facility] [address] [id number] [address] [place] [address] Oct, [facility] [address] [id number] [address] [place] [address] Oct, [facility] [address] [id number] [address] [place] [address] Sep, [facility] [address] [id number] [address] [place] [address] August, [facility] [address] [id number] [address] [place] [address] Jul, Neuroforaminal stenosis of s pine M99.89 ; Neck pain M54.2 ; Abnormal mammogram R92.8 and Essential hypertension I10 [facility] [address] [id number] [address] [place] [address] Jul, [facility] [address] [id number] [address] [place] [address] Jul, [facility] [address] [id number] [address] [place] [address] Jul, Abnormal mammogram R92.8 [facility] [address] [id number] [address] [place] [address] Jul, [facility] [address] [id number] [address] [place] [address] Jul, UTI (urinary tract infection ) N39.0 [facility] [address] [id number] [address] [place] [address] Jul, Dysuria R30.0 [facility] [address] [id number] [address] [place] [address] Jun, [facility] [address] [id number] [address] [place] [address] Jun, [facility] [address] [id number] [address] [place] [address] Jun, Hypokalemia E87.6 and Hematu martina R31.9 [facility] [address] [id number] [address] [place] [address] Jun, Hypokalemia E87.6 [place] [address] [place] [id number] [address] [place] [address] Jun, [place] [address] [address] Jun, Hypokalemia E87.6 [place] [address] [address] Jun, Hypokalemia E87.6 [place] [address] [address] 15 Jun, 2015 Neuroforaminal stenosis of s pine M99.89 ; Hypokalemia E87.6 ; Neck pain M54.2 ; Essential hypertension I10 ; Mixed hyperlipidemia E78.2 and Screening breast examination Z12.39 [place] [place] [address] [id number] 08 Jun, 2015 Dysuria R30.0 ; UTI (urinary tract infection) N39.0 and Hematuria R31.9 [place] [address] [address] May, [place] [address] [address] 18 May, 2015 High risk sexual behavior Z7 2.51 ; Hypokalemia E87.6 ; Neuroforaminal stenosis of spine M99.89 ; Neck pain M54.2 ; Essential hypertension I10 ; Mixed hyperlipidemia E78.2 ; STD exposure Z20.2 and Concern about STD in female without diagnosis Z71.1 [place] [address] [place] [id number] [address] [place] [address] 16 May, 2015 Neuroforaminal stenosis of s pine M99.89 ; Neck pain M54.2 ; Hypokalemia E87.6 ; Essential hypertension I10 and Mixed hyperlipidemia E78.2 [place] [address] [place] [id number] [address] [place] [address] May, [facility] [address] [address] 08 May, 2015 High risk sexual behavior Z7 2.51 ; STD exposure Z20.2 and Concern about STD in female without diagnosis Z71.1 [facility] [address] [place] [id number] [address] [place] [address] 05 May, 2015 [facility] [address] [address] Apr, Neuroforaminal stenosis of ayla garcia M99.89 ; Mixed hyperlipidemia E78.2 ; Essential hypertension I10 and Hypokalemia E87.6 [place] [address] [address] Mar, [place] [address] [address] Mar, Hypokalemia E87.6 [place] [address] [address] Mar, Neuroforaminal stenosis of s jose M99.89 ; Mixed hyperlipidemia E78.2 ; Neck pain M54.2 ; Essential hypertension I10 ; Abnormal fasting glucose R73.09 ; Hypokalemia E87.6 and Constipation K59.00 [place] [address] [place] [id number] [address] [place] [address] Feb, Neuroforaminal stenosis of s jose M99.89 ; Mixed hyperlipidemia E78.2 ; Neck pain M54.2 ; Essential hypertension I10 ; Abnormal fasting glucose R73.09 ; Hypokalemia E87.6 and Constipation K59.00 [place] [address] [place] [id number] [address] [place] [address] Feb, Elevated fasting blood sugar R73.01 [place] [address] [address] Feb, Elevated fasting blood sugar R73.01 [place] [address] [address] Feb, Hair loss L65.9 [facility] [address] [facility] [id number] [address] [place] [address] Feb, Sinusitis J32.9 ; Essential hypertension I10 and Hair loss L65.9 [facility] [address] [id number] [address] [place] [address] Jan, [facility] [address] [facility] [id number] [address] [place] [address] Jan, Essential hypertension I10 ; Neuroforaminal stenosis of spine M99.89 ; Neck pain M54.2 ; Mixed hyperlipidemia E78.2 and Anxiety F41.9 [place] [address] [facility] [id number] [address] [place] [address] Jan, [place] [address] [place] [id number] [address] [place] [address] Jan, Mixed hyperlipidemia E78.2 ; Essential (primary) hypertension I10 ; Strain of muscle, fascia and tendon at neck level, subsequent encounter S16.1XXD and Tension-type headache, unspecified, not intractable G44.209 [place] [address] [facility] [id number] [address] [place] [address] Dec, Lumbar back pain 724.2 and N euroforaminal stenosis of spine 724.00 [place] [address] [place] [id number] [address] [place] [address] Nov, [place] [address] [facility] [id number] [address] [place] [address] Nov, Lumbar back pain 724.2 and N euroforaminal stenosis of spine 724.00 [place] [address] [place] [id number] [address] [place] [address] Nov, Edema 782.3 ; Lumbar back pa in 724.2 ; Essential hypertension, benign 401.1 ; Hyperlipemia 272.4 ; Neuroforaminal stenosis of spine 724.00 and Post-concussion headache 339.20 [place] [address] [facility] [id number] [address] [place] [address] Nov, [facility] [address] [id number] [address] [place] [address] Nov, [facility] [address] [id number] [address] [place] [address] Oct, Essential hypertension, sheridan gn 401.1 [facility] [address] [id number] [address] [place] [address] Oct, Edema 782.3 ; Lumbar back pa in 724.2 ; Essential hypertension, benign 401.1 ; Hyperlipemia 272.4 ; Neuroforaminal stenosis of spine 724.00 and Post-concussion headache 339.20 [facility] [address] [id number] [address] [place] [address] Oct, [place] [address] [facility] [id number] [address] [place] [address] Oct, Edema 782.3 [facility] [address] [id number] [address] [place] [address] Oct, Lumbar back pain 724.2 [place] [address] [facility] [id number] [address] [place] [address] Oct, Cervicalgia 723.1 ; Lumbar b ack pain 724.2 and High risk medication use V58.69 [place] [address] [facility] [id number] [address] [place] [address] Sep, [facility] [address] [id number] [address] [place] [address] Sep, Lumbar strain 847.2 [place] [address] [facility] [id number] [address] [place] [address] August, Edema 782.3 and Eustachian t ube dysfunction 381.81 [facility] [address] [facility] [id number] [address] [place] [address] August, [place] [address] [id number] [address] [place] [address] August, Eustachian tube dysfunction 381.81 [facility] [address] [id number] [address] [place] [address] Jul, Otalgia 388.70 and Otitis me jonathon 382.9 [facility] [address] [id number] [address] [place] [address] Jul, [facility] [address] [id number] [address] [place] [address] Jul, [facility] [address] [id number] [address] [place] [address] Jul, [facility] [address] [id number] [address] [place] [address] Jul, [facility] [address] [id number] [address] [place] [address] Jul, [facility] [address] [id number] [address] [place] [address] Jun, [facility] [address] [id number] [address] [place] [address] Jun, [facility] [address] [id number] [address] [place] [address] Jun, [facility] [address] [id number] [address] [place] [address] May, [facility] [address] [id number] [address] [place] [address] May, [facility] [address] [id number] [address] [place] [address] May, [facility] [address] [id number] [address] [place] [address] May, [facility] [address] [id number] [address] [place] [address] May, [facility] [address] [id number] [address] [place] [address], [place] [address] May, [facility] [address] [id number] [address] [place] [address], [place] [address] May, [facility] [address] [id number] [address] [place] [address], [place] [address] May, [facility] [address] [id number] [address] [place] [address], [place] [address] May, [facility] [address] [id number] [address] [place] [address], [place] [address] May, [facility] [address] [id number] [address] [place] [address], [place] [address] Apr, [facility] [address] [id number] [address] [place] [address], [place] [address] Apr, [facility] [address] [id number] [address] [place] [address], [place] [address] Apr, [facility] [address] [id number] [address] [place] [address], [place] [address] Apr, [facility] [address] [id number] [address] [place] [address], [place] [address] Apr, [facility] [address] [id number] [address] [place] [address], [place] [address] Apr, [facility] [address] [id number] [address] [place] [address], [place] [address] Apr, [facility] [address] [id number] [address] [place] [address], [place] [address] Apr, [facility] [address] [id number] [address] [place] [address], [place] [address] Apr, [facility] [address] [id number] [address] [place] [address], [place] [address] Apr, [facility] [address] [id number] [address] [place] [address], [place] [address] Apr, [facility] [address] [id number] [address] [place] [address], [place] [address] Apr, [facility] [address] [id number] [address] [place] [address], [place] [address] Apr, [facility] [address] [id number] [address] [place] [address], [place] [address] Apr, [facility] [address] [id number] [address] [place] [address], [place] [address] Apr, [facility] [address] [id number] [address] [place] [address], [place] [address] Mar, [facility] [address] [id number] [address] [place] [address], [place] [address] Mar, [facility] [address] [id number] [address] [place] [address], [place] [address] Mar, [facility] [address] [id number] [address] [place] [address], [place] [address] Mar, [facility] [address] [id number] [address] [place] [address], [place] [address] Feb, [facility] [address] [id number] [address] [place] [address], [place] [address] Feb, [facility] [address] [id number] [address] [place] [address], [place] [address] Feb, [facility] [address] [id number] [address] [place] [address], [place] [address] Feb, [facility] [address] [id number] [address] [place] [address], [place] [address] Jan, [facility] [address] [id number] [address] [place] [address], [place] [address] Jan, [facility] [address] [id number] [address] [place] [address], [place] [address] Jan, [facility] [address] [id number] [address] [place] [address], [place] [address] Jan, [facility] [address] [id number] [address] [place] [address], [place] [address] Jan, [facility] [address] [id number] [address] [place] [address], [place] [address] Jan, [facility] [address] [id number] [address] [place] [address], [place] [address] Jan, [facility] [address] [id number] [address] [place] [address], [place] [address] Jan, [facility] [address] [id number] [address] [place] [address], [place] [address] Dec, [facility] [address] [id number] [address] [place] [address], [place] [address] Dec, [facility] [address] [id number] [address] [place] [address], [place] [address] Dec, [facility] [address] [id number] [address] [place] [address], [place] [address] Dec, [facility] [address] [id number] [address] [place] [address], [place] [address] Oct, [facility] [address] [id number] [address] [place] [address], [place] [address] Oct, [facility] [address] [id number] [address] [place] [address], [place] [address] Oct, [facility] [address] [id number] [address] [place] [address], [place] [address] Oct, [facility] [address] [id number] [address] [place] [address], [place] [address] Oct, [facility] [address] [id number] [address] [place] [address], [place] [address] Oct, 2013 [facility] [address] [id number] [address] [place] [address], [place] [address] Oct, [facility] [address] [id number] [facility] [place] [address] Oct, [facility] [address] [id number] [address] [place] [address], [place] [address] Sep, [facility] [address] [id number] [address] [place] [address], [place] [address] Sep, [facility] [address] [id number] [address] [place] [address], [place] [address] Sep, [facility] [address] [id number] [address] [place] [address], [place] [address] Sep, [facility] [address] [id number] [address] [place] [address], [place] [address] Sep, [facility] [address] [id number] [address] [place] [address], [place] [address] Sep, [facility] [address] [id number] [address] [place] [address], [place] [address] Sep, [facility] [address] [id number] [address] [place] [address], [place] [address] Sep, [facility] [address] [id number] [address] [place] [address], [place] [address] Sep, [facility] [address] [id number] [address] [place] [address], [place] [address] Sep, [facility] [address] [id number] [address] [place] [address], [place] [address] August, [facility] [address] [id number] [address] [place] [address], [place] [address] August, [facility] [address] [id number] [address] [place] [address], [place] [address] August, [facility] [address] [id number] [address] [place] [address], [place] [address] August, [facility] [address] [id number] [facility] [place] [address] August, [facility] [address] [id number] [address] [place] [address], [place] [address] August, [facility] [address] [id number] [address] [place] [address], [place] [address] August, [facility] [address] [id number] [address] [place] [address], [place] [address] August, [facility] [address] [id number] [address] [place] [address], [place] [address] August, [facility] [address] [id number] [address] [place] [address], [place] [address] August, [facility] [address] [id number] [address] [place] [address], [place] [address] August, [facility] [address] [id number] [address] [place] [address], [place] [address] August, [facility] [address] [id number] [address] [place] [address], [place] [address] Jul, [facility] [address] [id number] [address] [place] [address], [place] [address] Jul, [facility] [address] [id number] [address] [place] [address], [place] [address] Jul, [facility] [address] [id number] [address] [place] [address], [place] [address] Jul, [facility] [address] [id number] [address] [place] [address], [place] [address] Jul, [facility] [address] [id number] [address] [place] [address], [place] [address] Jul, [facility] [address] [id number] [address] [place] [address], [place] [address] Jun, [facility] [address] [id number] [address] [place] [address], [place] [address] Jun, [facility] [address] [id number] [address] [place] [address], [place] [address] May, [facility] [address] [id number] [address] [place] [address], [place] [address] May, [facility] [address] [id number] [address] [place] [address], [place] [address] Apr, [facility] [address] [id number] [address] [place] [address], [place] [address] Apr, [facility] [address] [id number] [address] [place] [address], [place] [address] Apr, [facility] [address] [id number] [address] [place] [address], [place] [address] Apr, [facility] [address] [id number] [address] [place] [address], [place] [address] Apr, [facility] [address] [id number] [address] [place] [address], [place] [address] Apr, [facility] [address] [id number] [address] [place] [address], [place] [address] Apr, [facility] [address] [id number] [address] [place] [address], [place] [address] Apr, [facility] [address] [id number] [address] [place] [address], [place] [address] Apr, [facility] [address] [id number] [address] [place] [address], [place] [address] Apr, [facility] [address] [id number] [address] [place] [address], [place] [address] Apr, [facility] [address] [id number] [address] [place] [address], [place] [address] Apr, [facility] [address] [id number] [address] [place] [address], [place] [address] Apr, [facility] [address] [id number] [address] [place] [address] Mar, [facility] [address] [id number] [address] [place] [address], [place] [address] Mar, [facility] [address] [id number] [address] [place] [address] Mar, [facility] [address] [id number] [address] [place] [address], [place] [address] Mar, [facility] [address] [id number] [address] [place] [address], [place] [address] Feb, [facility] [address] [id number] [address] [place] [address], [place] [address] Feb, [facility] [address] [id number] [address] [place] [address], [place] [address] Feb, [facility] [address] [id number] [address] [place] [address] Feb, [facility] [address] [id number] [address] [place] [address], [place] [address] Jan, [facility] [address] [id number] [address] [place] [id number] 14 Jan, 2013 [facility] [address] [id number] [address] [place] [address] Jan, [facility] [address] [id number] [address] [place] [address] Jan, [facility] [address] [id number] [address] [place] [address] Jan, [facility] [address] [id number] [address] [place] [address] Jan, [facility] [address] [id number] [address] [place] [address] Jan, [facility] [address] [id number] [address] [place] [address] 09 Jan, 2013 [facility] [address] [id number] [address] [place] [address], [place] [address] Jan, [facility] [address] [id number] [address] [place] [address], [place] [address] 26 Dec, 2012 [facility] [address] [id number] [address] [place] [address], [place] [address] 16 Dec, 2012 [facility] [address] [id number] [address] [place] [address], [place] [address] 16 Dec, 2012 [facility] [address] [id number] [address] [place] [address], [place] [address] 13 Dec, 2012 [facility] [address] [id number] [address] [place] [address], [place] [address] Nov, [facility] [address] [id number] [address] [place] [address], [place] [address] Nov, [facility] [address] [id number] [address] [place] [address], [place] [address] Nov, [facility] [address] [id number] [address] [place] [address], [place] [address] Nov, [facility] [address] [id number] [address] [place] [address], [place] [address] Oct, [facility] [address] [id number] [address] [place] [address], [place] [address] Sep, [facility] [address] [id number] [address] [place] [address], [place] [address] August, [facility] [address] [id number] [address] [place] [address], [place] [address] August, [facility] [address] [id number] [address] [place] [address], [place] [address] August, [facility] [address] [id number] [address] [place] [address], [place] [address] August, [facility] [address] [id number] [address] [place] [address], [place] [address] 15 Aug, 2012 [facility] [address] [id number] [address] [place] [address], [place] [address] August, [facility] [address] [id number] [address] [place] [address], [place] [address] August, [facility] [address] [id number] [address] [place] [address], [place] [address] August, [facility] [address] [id number] [address] [place] [address], [place] [address] August, [facility] [address] [id number] [address] [place] [address], [place] [address] August, [facility] [address] [id number] [address] [place] [address], [place] [address] August, [facility] [address] [id number] [address] [place] [address], [place] [address] August, [facility] [address] [id number] [address] [place] [address], [place] [address] Jul, [facility] [address] [id number] [address] [place] [address], [place] [address] Jul, [facility] [address] [id number] [address] [place] [address], [place] [address] 18 Jul, 2012 [facility] [address] [id number] [address] [place] [address], [place] [address] 15 Jul, 2012 [facility] [address] [id number] [address] [place] [address], [place] [address] Jul, [facility] [address] [id number] [address] [place] [address], [place] [address] Jul, [facility] [address] [id number] [address] [place] [address], [place] [address] 04 Jul, 2012 [facility] [address] [id number] [address] [place] [address], [place] [address] Jul, [facility] [address] [id number] [address] [place] [address], [place] [address] Jul, [facility] [address] [id number] [address] [place] [address], [place] [address] Jul, [facility] [address] [id number] [address] [place] [address], [place] [address] Jul, [facility] [address] [id number] [address] [place] [address], [place] [address] Jun, [facility] [address] [id number] [address] [place] [address], [place] [address] Jun, [facility] [address] [id number] [address] [place] [address], [place] [address] Jun, [facility] [address] [id number] [address] [place] [address], [place] [address] Jun, [facility] [address] [id number] [address] [place] [address], [place] [address] May, [facility] [address] [id number] [address] [place] [address], [place] [address] 14 May, 2012 [facility] [address] [id number] [address] [place] [address], [place] [address] 05 May, 2012 [facility] [address] [id number] [address] [place] [address], [place] [address] May, [facility] [address] [id number] [address] [place] [address], [place] [address] May, [facility] [address] [id number] [address] [place] [address], [place] [address] May, [facility] [address] [id number] [address] [place] [address], [place] [address] Apr, [facility] [address] [id number] [address] [place] [address], [place] [address] Apr, [facility] [address] [id number] [address] [place] [address], [place] [address] Apr, [facility] [address] [id number] [address] [place] [address], [place] [address] Apr, [facility] [address] [id number] [address] [place] [address], [place] [address] 15 Mar, 2012 [facility] [address] [id number] [address] [place] [address], [place] [address] 14 Mar, 2012 [facility] [address] [id number] [address] [place] [address], [place] [address] Mar, [facility] [address] [id number] [address] [place] [address], [place] [address] Mar, [facility] [address] [id number] [address] [place] [address], [place] [address] Mar, [facility] [address] [id number] [address] [place] [address], [place] [address] Mar, [facility] [address] [id number] [address] [place] [address], [place] [address] Mar, [facility] [address] [id number] [address] [place] [address], [place] [address] Feb, [facility] [address] [id number] [address] [place] [address], [place] [address] Feb, [facility] [address] [id number] [address] [place] [address], [place] [address] Feb, [facility] [address] [id number] [address] [place] [address], [place] [address] Feb, [facility] [address] [id number] [address] [place] [address], [place] [address] Jan, [facility] [address] [id number] [address] [place] [address], [place] [address] Jan, [facility] [address] [id number] [address] [place] [address], [place] [address] Jan, [facility] [address] [id number] [address] [place] [address] [place] [address] Jan, [facility] [address] [id number] [address] [place] [address], [place] [address] Jan, [facility] [address] [id number] [address] [place] [address], [place] [address] Jan, [facility] [address] [id number] [address] [place] [address], [place] [address] Dec, [facility] [address] [id number] [address] [place] [address], [place] [address] Dec, [facility] [address] [id number] [address] [place] [address], [place] [address] Nov, [facility] [address] [id number] [address] [place] [address], [place] [address] Sep, [facility] [address] [id number] [address] [place] [address], [place] [address] August, [facility] [address] [id number] [address] [place] [address], [place] [address] August, [facility] [address] [id number] [address] [place] [address], [place] [address] August, [facility] [address] [id number] [address] [place] [address], [place] [address] August, [facility] [address] [id number] [address] [place] [address], [place] [address] August, [facility] [address] [id number] [address] [place] [address], [place] [address] Jun, [facility] [address] [id number] [address] [place] [address], [place] [address] Jun, [facility] [address] [id number] [address] [place] [address], [place] [address] Apr, [facility] [address] [id number] [address] [place] [address], [place] [address] Apr, [facility] [address] [id number] [address] [place] [address], [place] [address] 23 Mar, 2011 [facility] [address] [id number] [address] [place] [address], [place] [address] 22 Feb, 2011 [facility] [address] [id number] [address] [place] [address], [place] [address] 14 Feb, 2011 [facility] [address] [id number] [address] [place] [address], [place] [address] 14 Feb, 2011 [facility] [address] [id number] [address] [place] [address], [place] [address] 17 Jan, 2011 [facility] [address] [id number] [address] [place] [address], [place] [address] 15 Jan, 2011 [facility] [address] [id number] [address] [place] [address], [place] [address] 15 Jan, 2011 [facility] [address] [id number] [address] [place] [address], [place] [address] 14 Jan, 2011 [facility] [address] [id number] [address] [place] [address], [place] [address] 15 May, 2010 [facility] [address] [id number] [address] [place] [address], [place] [address] 04 Mar, 2010 [facility] [address] [id number] [address] [place] [address], [place] [address] Oct, [facility] [address] [id number] [address] [place] [address], [place] [address] Sep, [facility] [address] [id number] [address] [place] [address], [place] [address] Mar, [facility] [address] [id number] [address] [place] [address], [place] [address] Jan, [facility] [address] [id number] [address] [place] [address], [place] [address] Jan, [facility] [address] [id number] [address] [place] [address] May, IMMUNIZATIONS No Known Immunizations SOCIAL HISTORY [...]
--- OUTSIDE RECORDS SUMMARY | 2019-11-23 06:18 | XMS REPORT ---
Author Author Liana Fuchs Organization [facility] Address [address] [place] [address] Care Team Providers Care Professor Of Philosophy Name Role Phone PACHECO Fuchs Unavailable PROBLEMS Type Condition ICD9-CM Code DAZ18-MA Code Onset Dates Condition S tatus SNOMED Code Problem Anxiety F41.9 Active 65442808 Problem Neck pain M54.2 Active 97104382 Problem Neuroforaminal stenosis of spine M99.89 Active 137676150428 Problem Hematuria, unspecified type R31.9 Ac tive 50792758 Problem Seasonal allergies J30.2 Active 4 11039651 Problem Abnormal glucose R73.09 Active 102 989250 Problem Rhinosinusitis J32.9 Active 87770 4004 Problem Abnormal renal ultrasound R93.429 Acti ve [id number] Problem Essential hypertension I10 Active 42020512 Problem Mixed hyperlipidemia E78.2 Active 87138265 Problem Hypokalemia E87.6 Active 96035687 Problem Chronic pain due to trauma G89.21 Act juanis [id number] ALLERGIES No Information ENCOUNTERS Encounter Location Date Diagnosis [place] [id number] [facility] [id number] [address] [place] [phone] Jul, [facility] [address] [facility] [id number] [address] [place] [address] Jun, Hypokalemia E87.6 [facility] [address] [facility] [id number] [address] [place] [address] Jun, [facility] [address] [facility] [id number] [address] [place] [address] Jun, Neuroforaminal stenosis of s pine M99.89 [facility] [address] [facility] [id number] [address] [place] [address] Jun, Lateral epicondylitis, left elbow M77.12 and Medial epicondylitis, left elbow M77.02 [place] [address] [id number] [address] [place] [address] 16 Jun, 2019 Foraminal stenosis of lumbar region M48.061 ; Segmental dysfunction of thoracic region M99.02 ; Segmental dysfunction of lumbar region M99.03 and Segmental dysfunction of sacral region M99.04 [place] [address] [id number] [address] [place] [address] May, Left elbow pain M25.522 [place] [address] [id number] [address] [place] [address] May, [place] [address] [id number] [address] [place] [address] May, Left elbow pain M25.522 [place] [address] [id number] [address] [place] [address] May, Neuroforaminal stenosis of s pine M99.89 [place] [address] [id number] [address] [place] [address] May, Rhinosinusitis J32.9 ; Left elbow pain M25.522 and Neck pain M54.2 [place] [address] [id number] [address] [place] [address] 14 May, 2019 Lateral epicondylitis of lef t elbow M77.12 [place] [address] [id number] [address] [place] [address] Apr, Neuroforaminal stenosis of s pine M99.89 [place] [address] [id number] [address] [place] [address] Apr, Essential hypertension I10 a nd Mixed hyperlipidemia E78.2 [place] [address] [id number] [address] [place] [address] Mar, Neuroforaminal stenosis of s pine M99.89 [place] [address] [facility] [id number] [address] [place] [address] Mar, Epicondylitis, lateral, left M77.12 [facility] [address] [facility] [id number] [address] [place] [address] Mar, [facility] [address] [facility] [id number] [address] [place] [address] Mar, Neuroforaminal stenosis of s pine M99.89 [facility] [address] [facility] [id number] [address] [place] [address] Feb, Neuroforaminal stenosis of s pine M99.89 ; Essential hypertension I10 ; Mixed hyperlipidemia E78.2 ; Encounter for immunization Z23 and Seasonal allergies J30.2 [facility] [address] [facility] [id number] [address] [place] [phone] Jan, Neuroforaminal stenosis of s pine M99.89 [place] [address] [facility] [id number] [address] [place] [address] Dec, Neuroforaminal stenosis of s pine M99.89 [place] [address] [facility] [id number] [address] [place] [address] Dec, Neuroforaminal stenosis of s pine M99.89 [facility] [address] [facility] [id number] [address] [place] [address] Nov, [facility] [address] [facility] [id number] [address] [place] [address] Nov, Neuroforaminal stenosis of s pine M99.89 [facility] [address] [facility] [id number] [address] [place] [address] Nov, Acute non-recurrent maxillar y sinusitis J01.00 [facility] [address] [facility] [id number] [address] [place] [id number] Oct, Hypokalemia E87.6 [facility] [address] [facility] [id number] [address] [place] [address] Oct, Wasp sting, undetermined int ent, initial encounter T63.464A and Cellulitis of left lower extremity L03.116 [place] [address] [id number] [address] [place] [address] Oct, Neuroforaminal stenosis of s pine M99.89 [place] [address] [id number] [address] [place] [address] Sep, [place] [address] [id number] [address] [place] [address] Sep, [place] [address] [id number] [address] [place] [address] 18 Sep, 2018 Routine screening for STI (s exually transmitted infection) Z11.3 [place] [address] [id number] [address] [place] [address] 14 Sep, 2018 Routine screening for STI (s exually transmitted infection) Z11.3 ; Well woman exam with routine gynecological exam Z01.419 and Breast cancer screening Z12.39 [place] [address] [id number] [address] [place] [address] 10 Sep, 2018 Neuroforaminal stenosis of s pine M99.89 [place] [address] [id number] [address] [place] [address] August, Neuroforaminal stenosis of s pine M99.89 [place] [address] [facility] [id number] [address] [place] [address] August, Neuroforaminal stenosis of s pine M99.89 ; Chronic pain due to trauma G89.21 and Mixed hyperlipidemia E78.2 [place] [address] [id number] [address] [place] [address] 16 Jul, 2018 Viral upper respiratory illn ess J06.9 and Acute non-recurrent frontal sinusitis J01.10 [place] [address] [id number] [address] [place] [id number] 15 Jul, 2018 Congestion of nasal sinus R0 9.81 [place] [address] [id number] [address] [place] [address] Jul, Neuroforaminal stenosis of s pine M99.89 and Essential hypertension I10 [facility] [address] [id number] [address] [place] [address] May, Neuroforaminal stenosis of s pine M99.89 [facility] [address] [id number] [address] [place] [address] May, [facility] [address] [id number] [address] [place] [address] May, Congestion of nasal sinus R0 9.81 [facility] [address] [facility] [id number] [address] [place] [address] May, [facility] [address] [facility] [id number] [address] [place] [address] Apr, Neuroforaminal stenosis of s pine M99.89 [place] [address] [facility] [id number] [address] [place] [address] Apr, Neuroforaminal stenosis of s pine M99.89 and Chronic pain due to trauma G89.21 [facility] [address] [facility] [id number] [address] [place] [address] Mar, UTI (urinary tract infection ) N39.0 [facility] [address] [facility] [id number] [address] [place] [address] Mar, Vertigo R42 [facility] [address] [facility] [id number] [address] [place] [address] Mar, Neuroforaminal stenosis of s pine M99.89 [facility] [address] [id number] [address] [place] [id number] Feb, Extensor tendon disruption M 67.89 [facility] [address] [facility] [id number] [address] [place] [address] Feb, Neuroforaminal stenosis of s pine M99.89 and High risk medication use Z79.899 [place] [address] [place] [id number] [address] [place] [address] Jan, Hypokalemia E87.6 [place] [address] [facility] [id number] [address] [place] [address] Jan, Flank pain R10.9 and Acute r ight-sided low back pain without sciatica M54.5 [place] [address] [facility] [id number] [address] [place] [address] Jan, Hypokalemia E87.6 [place] [address] [facility] [id number] [address] [place] [address] Jan, [place] [address] [place] [id number] [place] [address] Jan, URI, acute J06.9 [place] [address] [place] [id number] [place] [address] Jan, Neuroforaminal stenosis of s pine M99.89 [place] [address] [place] [id number] [place] [address] 13 Dec, 2017 Lateral epicondylitis, right elbow M77.11 [place] [address] [place] [id number] [place] [address] 11 Dec, 2017 Allergic rhinitis due to monica rosalina, unspecified seasonality J30.1 and Allergic conjunctivitis of both eyes H10.13 [place] [address] [place] [id number] [address] [place] [address] 10 Dec, 2017 Neuroforaminal stenosis of s pine M99.89 [place] [address] [place] [id number] [address] [place] [address] 06 Dec, 2017 Mixed hyperlipidemia E78.2 [place] [address] [place] [id number] [address] [place] [id number] 05 Dec, 2017 Abnormal glucose R73.09 ; Ab normal renal ultrasound R93.429 ; Dysuria R30.0 ; Cystitis without hematuria N30.90 ; Hypokalemia E87.6 ; Mixed hyperlipidemia E78.2 and Hematuria, unspecified type R31.9 [place] [address] [facility] [id number] [place] [address] Nov, Hypokalemia E87.6 ; Mixed hy perlipidemia E78.2 and Hematuria, unspecified type R31.9 [place] [address] [facility] [id number] [address] [place] [address] Nov, [place] [address] [id number] [address] [place] [address] Nov, Hypokalemia E87.6 [place] [address] [facility] [id number] [address] [place] [phone] Nov, [place] [address] [place] [id number] [place] [address] Nov, Abnormal renal ultrasound R9 3.429 [place] [address] [place] [id number] [address] [place] [phone] Nov, Abnormal renal ultrasound R9 3.429 [place] [address] [place] [id number] [place] [address] Nov, Hematuria, unspecified type R31.9 and 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 [place] [address] [address] Nov, Dysuria R30.0 [place] [address] [place] [id number] [address] [place] [address] Oct, Lateral epicondylitis, right elbow M77.11 [place] [address] [place] [id number] [place] [address] Oct, Neuroforaminal stenosis of s pine M99.89 ; Visit for TB skin test Z11.1 and Essential hypertension I10 [place] [address] [place] [id number] [address] [place] [address] Oct, [place] [address] [id number] [address] [place] [address] 12 Oct, 2017 Neuroforaminal stenosis of s pine M99.89 [place] [address] [id number] [address] [place] [address] 10 Oct, 2017 Visit for TB skin test Z11.1 [place] [address] [id number] [address] [place] [address] 05 Oct, 2017 Cystitis without hematuria N 30.90 [place] [address] [id number] [address] [place] [phone] 28 Sep, 2017 Screening breast examination Z12.39 [place] [address] [id number] [address] [place] [address] 26 Sep, 2017 Dysuria R30.0 and Cystitis w ithout hematuria N30.90 [place] [address] [id number] [address] [place] [address] 14 Sep, 2017 Essential hypertension I10 a nd 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 [place] [address] [id number] [address] [place] [phone] 04 Sep, 2017 Abnormal glucose R73.09 [place] [address] [facility] [id number] [address] [place] [address] August, Lateral epicondylitis, right elbow M77.11 [place] [address] [facility] [id number] [address] [place] [address] August, Screen for STD (sexually tra nsmitted disease) Z11.3 [place] [address] [id number] [address] [place] [id number] August, Neuroforaminal stenosis of s pine M99.89 ; Mixed hyperlipidemia E78.2 ; Elevated fasting glucose R73.01 ; Screening mammogram, encounter for Z12.31 and Encounter for well woman exam without gynecological exam Z00.00 [place] [address] [id number] [address] [place] [address] August, Neuroforaminal stenosis of s jose M99.89 [facility] [address] [id number] [address] [place] [address] August, Essential hypertension I10 ; Hypokalemia E87.6 and Mixed hyperlipidemia E78.2 [facility] [address] [id number] [address] [place] [address] Jul, [facility] [address] [id number] [address] [place] [address] Jul, Neuroforaminal stenosis of s jose M99.89 [facility] [address] [id number] [address] [place] [address] Jul, Lateral epicondylitis, right elbow M77.11 [facility] [address] [id number] [address] [place] [address] Jul, [facility] [address] [id number] [address] [place] [address] Jun, High ankle sprain of right l ower extremity, initial encounter S93.431A [facility] [address] [id number] [address] [place] [address] Jun, Essential hypertension I10 [facility] [address] [id number] [address] [place] [address] Jun, [facility] [address] [id number] [address] [place] [address] Jun, [facility] [address] [id number] [address] [place] [address] Jun, Neuroforaminal stenosis of s jose M99.89 [facility] [address] [id number] [address] [place] [address] Jun, Pain of right upper extremit y M79.601 and Essential hypertension I10 [facility] [address] [id number] [address] [place] [address] Jun, [place] [address] [address] Jun, Dysuria R30.0 ; Acute cystit is with hematuria N30.01 and Screen for STD (sexually transmitted disease) Z11.3 [place] [address] [address] May, Chronic pain due to trauma G 89.[address] [address] May, Essential hypertension I10 [address] [address] May, Neuroforaminal stenosis of s jose M99.[address] [address] Apr, Allergic reaction, initial e ncounter T78.40XA [address] [address] Apr, Low back pain, unspecified b ack pain laterality, unspecified chronicity, with sciatica presence unspecified M54.5 ; Acute cystitis with hematuria N30.01 ; 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 ; Bilateral acute serous otitis media, recurrence not specified H65.03 ; Mixed hyperlipidemia E78.2 ; Essential hypertension I10 ; Immunization counseling Z71.89 and Encounter for immunization Z23 [address] [address] Apr, Neck pain M54.[address] [address] Mar, Neuroforaminal stenosis of s pine M99.89 [place] [address] [address] Mar, Pharyngitis due to other org anism J02.[address] [address] Feb, Neuroforaminal stenosis of s pine M99.89 [facility] [address] [id number] [address] [place] [address] Feb, UTI (urinary tract infection ) N39.0 [facility] [address] [id number] [address] [place] [address] Feb, Recent urinary tract infecti on Z87.440 ; 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 ; Neck pain M54.2 ; Chronic pain due to trauma G89.21 and Recurrent UTI N39.0 [facility] [address] [id number] [address] [place] [address] Feb, [facility] [address] [id number] [address] [place] [address] Jan, Neuroforaminal stenosis of s pine M99.89 [facility] [address] [id number] [address] [place] [address] Dec, Neuroforaminal stenosis of s pine M99.89 [facility] [address] [id number] [address] [place] [address] Dec, Acute seasonal allergic rhin itis due to pollen J30.1 [facility] [address] [id number] [address] [place] [address] Dec, [facility] [address] [id number] [address] [place] [address] Dec, Acute seasonal allergic rhin itis, unspecified trigger J30.2 ; Allergic conjunctivitis of both eyes H10.13 and Dysfunction of both eustachian tubes H69.83 [facility] [address] [id number] [address] [place] [address] Dec, [facility] [address] [id number] [address] [place] [address] Dec, Nevus D22.9 [facility] [address] [id number] [address] [place] [address] Nov, Chronic pain due to trauma G 89.21 and 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 [facility] [address] [id number] [address] [place] [address] Nov, Neuroforaminal stenosis of s pine M99.89 ; Essential hypertension I10 ; Mixed hyperlipidemia E78.2 ; Hypokalemia E87.6 ; Neck pain M54.2 and Nevus D22.9 [facility] [address] [id number] [address] [place] [address] Oct, Neuroforaminal stenosis of s pine M99.89 [facility] [address] [id number] [address] [place] [address] Sep, Neuroforaminal stenosis of s pine M99.89 [facility] [address] [id number] [address] [place] [address] Sep, [facility] [address] [id number] [address] [place] [address] August, [facility] [address] [id number] [address] [place] [address] August, Neck pain M54.2 and Neurofor aminal stenosis of spine M99.89 [facility] [address] [id number] [address] [place] [address] August, Routine gynecological examin ation Z01.419 and Screening breast examination Z12.39 [facility] [address] [id number] [address] [place] [address] Jul, [facility] [address] [id number] [address] [place] [address] Jul, [facility] [address] [facility] [id number] [address] [place] [address] Jul, Neuroforaminal stenosis of s pine M99.89 [facility] [address] [id number] [address] [place] [address] Jul, [place] [address] [id number] [address] [place] [address] Jul, Neuroforaminal stenosis of l umbar 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 [place] [address] [id number] [address] [place] [address] Jul, [place] [address] [facility] [id number] [address] [place] [address] Jul, [place] [address] [id number] [address] [place] [address] Jun, Neuroforaminal stenosis of s jose M99.89 [place] [address] [facility] [id number] [address] [place] [address] Jun, Uterine leiomyoma, unspecifi ed location D25.9 and Allergic reaction caused by a drug, initial encounter T78.40XA [place] [address] [facility] [id number] [address] [place] [address] Jun, [place] [address] [facility] [id number] [address] [place] [address] May, UTI symptoms R39.9 and Pain of right sacroiliac joint M53.3 [place] [address] [facility] [id number] [address] [place] [address] May, Neuroforaminal stenosis of s jose M99.89 [place] [address] [facility] [id number] [address] [place] [address] May, [place] [address] [facility] [id number] [address] [place] [id number] May, Acute mucoid otitis media of left ear H65.112 and Acute non- recurrent maxillary sinusitis J01.00 [place] [address] [address] [facility] [id number] [address] [place] [phone] May, Acute bacterial conjunctivit is of both eyes H10.33 ; Left arm pain M79.602 and Hypokalemia E87.6 [place] [address] [address] [place] [id number] [address] [place] [id number] Apr, [place] [address] [address] [place] [id number] [address] [place] [id number] Apr, Neuroforaminal stenosis of s pine M99.89 ; Neck pain M54.2 ; Chronic pain due to trauma G89.21 ; Mixed hyperlipidemia E78.2 ; Essential hypertension I10 and Hypokalemia E87.6 [place] [address] [address] [place] [id number] [address] [place] [id number] Mar, Oral candidiasis B37.0 ; Nathaniel roforaminal stenosis of spine M99.89 ; Neck pain M54.2 and Chronic pain due to trauma G89.21 [place] [address] [address] [place] [id number] [address] [place] [id number] Feb, [place] [address] [address] [place] [id number] [address] [place] [id number] Feb, [place] [address] [address] [place] [id number] [address] [place] [id number] Feb, UTI (urinary tract infection ) N39.0 [place] [address] [address] [place] [id number] [address] [place] [phone] Feb, Dysuria R30.0 [place] [address] [address] [place] [id number] [address] [place] [phone] Feb, Dysuria R30.0 [place] [address] [address] [place] [id number] [address] [place] [phone] 02 Feb, 2016 Neuroforaminal stenosis of s pine M99.89 ; Neck pain M54.2 ; Essential hypertension I10 ; Chronic pain due to trauma G89.21 ; Dysuria R30.0 ; Abnormal MRI, shoulder R93.8 and Acute cystitis without hematuria N30.00 [place] [address] [address] [place] [id number] [address] [place] [phone] Jan, [place] [address] [address] [place] [id number] [address] [place] [address] Jan, [facility] [address] [id number] [address] [place] [address] Jan, [facility] [address] [id number] [address] [place] [address] Jan, Abnormal MRI R93.8 [facility] [address] [id number] [address] [place] [address] 29 Dec, 2015 [facility] [address] [id number] [address] [place] [address] 15 Dec, 2015 Acute pain of left shoulder M25.512 [facility] [address] [id number] [address] [place] [address] 09 Dec, 2015 [facility] [address] [id number] [address] [place] [address] 08 Dec, 2015 [facility] [address] [id number] [address] [place] [address] 07 Dec, 2015 Acute pain of left shoulder M25.512 [facility] [address] [id number] [address] [place] [address] Nov, [facility] [address] [id number] [address] [place] [address] 16 Nov, 2015 Neuroforaminal stenosis of s pine M99.89 ; Neck pain M54.2 ; Abnormal mammogram R92.8 ; Essential hypertension I10 and Chronic pain due to trauma G89.21 [facility] [address] [id number] [address] [place] [address] Nov, [facility] [address] [id number] [address] [place] [address] Oct, Acute stress disorder F43.0 [facility] [address] [id number] [address] [place] [address] Oct, [facility] [address] [id number] [address] [place] [address] Oct, [facility] [address] [id number] [address] [place] [id number] 05 Oct, 2015 [facility] [address] [id number] [address] [place] [id number] Sep, [facility] [address] [id number] [address] [place] [address] August, [facility] [address] [id number] [address] [place] [address] Jul, Neuroforaminal stenosis of s pine M99.89 ; Neck pain M54.2 ; Abnormal mammogram R92.8 and Essential hypertension I10 [facility] [address] [id number] [address] [place] [address] Jul, [facility] [address] [id number] [address] [place] [address] Jul, [facility] [address] [id number] [address] [place] [address] Jul, Abnormal mammogram R92.8 [facility] [address] [id number] [address] [place] [address] Jul, [facility] [address] [id number] [address] [place] [address] Jul, UTI (urinary tract infection ) N39.0 [facility] [address] [id number] [address] [place] [address] Jul, Dysuria R30.0 [facility] [address] [id number] [address] [place] [address] Jun, [facility] [address] [id number] [address] [place] [address] Jun, [facility] [address] [id number] [address] [place] [address] Jun, Hypokalemia E87.6 and Hematu martina R31.9 [facility] [address] [address] Jun, Hypokalemia E87.6 [place] [address] [address] Jun, [place] [address] [address] Jun, Hypokalemia E87.6 [place] [address] [address] Jun, Hypokalemia E87.6 [place] [address] [address] Jun, Neuroforaminal stenosis of s pine M99.89 ; Hypokalemia E87.6 ; Neck pain M54.2 ; Essential hypertension I10 ; Mixed hyperlipidemia E78.2 and Screening breast examination Z12.[address] [address] Jun, Dysuria R30.0 ; UTI (urinary tract infection) N39.0 and Hematuria R31.[address] [address] May, [address] [address] May, High risk sexual behavior Z7 2.51 ; Hypokalemia E87.6 ; Neuroforaminal stenosis of spine M99.89 ; Neck pain M54.2 ; Essential hypertension I10 ; Mixed hyperlipidemia E78.2 ; STD exposure Z20.2 and Concern about STD in female without diagnosis Z71.[address] [address] 16 May, 2015 Neuroforaminal stenosis of s pine M99.89 ; Neck pain M54.2 ; Hypokalemia E87.6 ; Essential hypertension I10 and Mixed hyperlipidemia E78.[address] [place] [address] 11 May, 2015 [facility] [address] [address] 08 May, 2015 High risk sexual behavior Z7 2.51 ; STD exposure Z20.2 and Concern about STD in female without diagnosis Z71.1 [place] [address] [address] May, [place] [address] [address] Apr, Neuroforaminal stenosis of s pine M99.89 ; Mixed hyperlipidemia E78.2 ; Essential hypertension I10 and Hypokalemia E87.6 [place] [address] [address] Mar, [place] [address] [address] Mar, Hypokalemia E87.6 [place] [address] [address] Mar, Neuroforaminal stenosis of [place] pine M99.89 ; Mixed hyperlipidemia E78.2 ; Neck pain M54.2 ; Essential hypertension I10 ; Abnormal fasting glucose R73.09 ; Hypokalemia E87.6 and Constipation K59.00 [place] [address] [address] Feb, Neuroforaminal stenosis of s pine M99.89 ; Mixed hyperlipidemia E78.2 ; Neck pain M54.2 ; Essential hypertension I10 ; Abnormal fasting glucose R73.09 ; Hypokalemia E87.6 and Constipation K59.00 [place] [address] [address] Feb, Elevated fasting blood sugar R73.01 [place] [address] [address] Feb, Elevated fasting blood sugar R73.01 [place] [id number] [id number] [address] [place] [address] Feb, Hair loss L65.9 [place] [address] [facility] [id number] [address] [place] [address] Feb, Sinusitis J32.9 ; Essential hypertension I10 and Hair loss L65.9 [place] [address] [facility] [id number] [address] [place] [address] Jan, [place] [address] [id number] [address] [place] [address] Jan, Essential hypertension I10 ; Neuroforaminal stenosis of spine M99.89 ; Neck pain M54.2 ; Mixed hyperlipidemia E78.2 and Anxiety F41.9 [place] [address] [facility] [id number] [address] [place] [address] Jan, [place] [address] [place] [id number] [place] [address] Jan, Mixed hyperlipidemia E78.2 ; Essential (primary) hypertension I10 ; Strain of muscle, fascia and tendon at neck level, subsequent encounter S16.1XXD and Tension-type headache, unspecified, not intractable G44.209 [place] [address] [facility] [id number] [address] [place] [address] Dec, Lumbar back pain 724.2 and N euroforaminal stenosis of spine 724.00 [place] [address] [id number] [address] [place] [address] Nov, [place] [address] [id number] [address] [place] [address] Nov, Lumbar back pain 724.2 and N euroforaminal stenosis of spine 724.00 [place] [address] [facility] [id number] [address] [place] [address] Nov, Edema 782.3 ; Lumbar back pa in 724.2 ; Essential hypertension, benign 401.1 ; Hyperlipemia 272.4 ; Neuroforaminal stenosis of spine 724.00 and Post-concussion headache 339.20 [facility] [address] [id number] [address] [place] [address] Nov, [facility] [address] [id number] [address] [place] [address] Nov, [facility] [address] [id number] [address] [place] [address] Oct, Essential hypertension, sheridan gn 401.1 [facility] [address] [id number] [address] [place] [address] Oct, Edema 782.3 ; Lumbar back pa in 724.2 ; Essential hypertension, benign 401.1 ; Hyperlipemia 272.4 ; Neuroforaminal stenosis of spine 724.00 and Post-concussion headache 339.20 [facility] [address] [id number] [address] [place] [address] Oct, [facility] [address] [id number] [address] [place] [address] Oct, Edema 782.3 [facility] [address] [facility] [id number] [address] [place] [address] Oct, Lumbar back pain 724.2 [place] [address] [facility] [id number] [address] [place] [address] Oct, Cervicalgia 723.1 ; Lumbar b ack pain 724.2 and High risk medication use V58.69 [facility] [address] [id number] [address] [place] [address] Sep, [facility] [address] [id number] [address] [place] [address] Sep, Lumbar strain 847.2 [facility] [address] [facility] [id number] [address] [place] [address] August, Edema 782.3 and Eustachian t ube dysfunction 381.81 [facility] [address] [id number] [address] [place] [address] August, [facility] [address] [id number] [address] [place] [address] August, Eustachian tube dysfunction 381.81 [facility] [address] [id number] [address] [place] [address] Jul, Otalgia 388.70 and Otitis me jonathon 382.9 [facility] [address] [id number] [address] [place] [address] Jul, [facility] [address] [id number] [address] [place] [address] Jul, [facility] [address] [id number] [address] [place] [address] Jul, [facility] [address] [id number] [address] [place] [address] Jul, [facility] [address] [id number] [address] [place] [address] Jul, [facility] [address] [id number] [address] [place] [address] Jun, [facility] [address] [id number] [address] [place] [address] Jun, [facility] [address] [id number] [address] [place] [address] Jun, [facility] [address] [id number] [address] [place] [id number] May, [facility] [address] [id number] [address] [place] [address] May, [facility] [address] [id number] [address] [place] [address] May, [facility] [address] [id number] [address] [place] [address] May, [facility] [address] [id number] [address] [place] [address], [place] [address] 17 May, 2014 [facility] [address] [id number] [address] [place] [address], [place] [address] May, 2014 [facility] [address] [id number] [address] [place] [address], [place] [address] May, 2014 [facility] [address] [id number] [address] [place] [address], [place] [address] May, 2014 [facility] [address] [id number] [address] [place] [address], [place] [address] May, [facility] [address] [id number] [address] [place] [address], [place] [address] May, [facility] [address] [id number] [address] [place] [address], [place] [address] Apr, [facility] [address] [id number] [address] [place] [address], [place] [address] Apr, [facility] [address] [id number] [address] [place] [address], [place] [address] Apr, [facility] [address] [id number] [address] [place] [address], [place] [address] Apr, [facility] [address] [id number] [address] [place] [address] Apr, [facility] [address] [id number] [address] [place] [address] Apr, [facility] [address] [id number] [address] [place] [address], [place] [address] Apr, [facility] [address] [id number] [address] [place] [address], [place] [address] Apr, [facility] [address] [id number] [address] [place] [address] Apr, [facility] [address] [id number] [address] [place] [address], [place] [address] Apr, [facility] [address] [id number] [address] [place] [address], [place] [address] Apr, [facility] [address] [id number] [address] [place] [address], [place] [address] Apr, [facility] [address] [id number] [address] [place] [address], [place] [address] Apr, [facility] [address] [id number] [address] [place] [address], [place] [address] Apr, [facility] [address] [id number] [address] [place] [address], [place] [address] Apr, [facility] [address] [id number] [address] [place] [address], [place] [address] Mar, [facility] [address] [id number] [address] [place] [address], [place] [address] Mar, [facility] [address] [id number] [address] [place] [address], [place] [address] Mar, [facility] [address] [id number] [address] [place] [address], [place] [address] Mar, [facility] [address] [id number] [address] [place] [address], [place] [address] Feb, [facility] [address] [id number] [address] [place] [address], [place] [address] Feb, [facility] [address] [id number] [address] [place] [address], [place] [address] Feb, [facility] [address] [id number] [address] [place] [address], [place] [address] Feb, [facility] [address] [id number] [address] [place] [address], [place] [address] Jan, [facility] [address] [id number] [address] [place] [address], [place] [address] Jan, [facility] [address] [id number] [facility] [place] [address] Jan, [facility] [address] [id number] [address] [place] [address], [place] [address] Jan, [facility] [address] [id number] [address] [place] [address], [place] [address] Jan, [facility] [address] [id number] [address] [place] [address], [place] [address] Jan, [facility] [address] [id number] [address] [place] [address], [place] [address] Jan, [facility] [address] [id number] [address] [place] [address], [place] [address] Jan, [facility] [address] [id number] [address] [place] [address], [place] [address] Dec, [facility] [address] [id number] [address] [place] [address], [place] [address] Dec, 2013 [facility] [address] [id number] [address] [place] [address], [place] [address] Dec, [facility] [address] [id number] [address] [place] [address], [place] [address] Dec, [facility] [address] [id number] [address] [place] [address], [place] [address] Oct, [facility] [address] [id number] [address] [place] [address], [place] [address] 14 Oct, 2013 [facility] [address] [id number] [address] [place] [address], [place] [address] Oct, [facility] [address] [id number] [address] [place] [address], [place] [address] Oct, [facility] [address] [id number] [address] [place] [address], [place] [address] Oct, [facility] [address] [id number] [address] [place] [address], [place] [address] Oct, [facility] [address] [id number] [facility] [place] [address] Oct, [facility] [address] [id number] [facility] [address] Oct, [facility] [address] [id number] [facility] [place] [address] Sep, [facility] [address] [id number] [address] [place] [address], [place] [address] Sep, [facility] [address] [id number] [address] [place] [address], [place] [address] Sep, [facility] [address] [id number] [address] [place] [address], [place] [address] Sep, [facility] [address] [id number] [address] [place] [address], [place] [address] Sep, [facility] [address] [id number] [address] [place] [address], [place] [address] Sep, [facility] [address] [id number] [address] [place] [address], [place] [address] Sep, [facility] [address] [id number] [address] [place] [address], [place] [address] Sep, [facility] [address] [id number] [address] [place] [address], [place] [address] Sep, [facility] [address] [id number] [address] [place] [address], [place] [address] Sep, [facility] [address] [id number] [address] [place] [address], [place] [address] August, [facility] [address] [id number] [address] [place] [address], [place] [address] August, [facility] [address] [id number] [address] [place] [address], [place] [address] August, [facility] [address] [id number] [address] [place] [address], [place] [address] August, [facility] [address] [id number] [address] [place] [address], [place] [address] August, [facility] [address] [id number] [address] [place] [address], [place] [address] August, [facility] [address] [id number] [address] [place] [address], [place] [address] August, [facility] [address] [id number] [address] [place] [address], [place] [address] August, [facility] [address] [id number] [address] [place] [address], [place] [address] August, [facility] [address] [id number] [address] [place] [address], [place] [address] August, [facility] [address] [id number] [address] [place] [address], [place] [address] August, [facility] [address] [id number] [address] [place] [address], [place] [address] August, [facility] [address] [id number] [address] [place] [address], [place] [address] Jul, [facility] [address] [id number] [address] [place] [address], [place] [address] Jul, [facility] [address] [id number] [address] [place] [address], [place] [address] Jul, [facility] [address] [id number] [address] [place] [address], [place] [address] Jul, [facility] [address] [id number] [address] [place] [address], [place] [address] Jul, [facility] [address] [id number] [address] [place] [address], [place] [address] Jul, [facility] [address] [id number] [address] [place] [address], [place] [address] Jun, [facility] [address] [id number] [address] [place] [address], [place] [address] Jun, [facility] [address] [id number] [address] [place] [address], [place] [address] May, [facility] [address] [id number] [address] [place] [address], [place] [address] May, [facility] [address] [id number] [address] [place] [address], [place] [address] Apr, [facility] [address] [id number] [address] [place] [address], [place] [address] Apr, [facility] [address] [id number] [address] [place] [address], [place] [address] Apr, [facility] [address] [id number] [address] [place] [address], [place] [address] Apr, [facility] [address] [id number] [address] [place] [address], [place] [address] Apr, [facility] [address] [id number] [address] [place] [address], [place] [address] Apr, [facility] [address] [id number] [address] [place] [address], [place] [address] Apr, [facility] [address] [id number] [address] [place] [address], [place] [address] Apr, [facility] [address] [id number] [address] [place] [address], [place] [address] Apr, [facility] [address] [id number] [address] [place] [address], [place] [address] Apr, [facility] [address] [id number] [address] [place] [address], [place] [address] Apr, [facility] [address] [id number] [address] [place] [address], [place] [address] Apr, [facility] [address] [id number] [address] [place] [address] Apr, [facility] [address] [id number] [address] [place] [address], [place] [address] Mar, [facility] [address] [id number] [address] [place] [id number] Mar, [facility] [address] [id number] [address] [place] [address], [place] [address] Mar, [facility] [address] [id number] [address] [place] [id number] Mar, [facility] [address] [id number] [address] [place] [address], [place] [address] Feb, [facility] [address] [id number] [address] [place] [address], [place] [address] Feb, [facility] [address] [id number] [address] [place] [address], [place] [address] Feb, [facility] [address] [id number] [address] [place] [address], [place] [address] Feb, [facility] [address] [id number] [address] [place] [id number] 14 Jan, 2013 [facility] [address] [id number] [address] [place] [id number] 14 Jan, 2013 [facility] [address] [id number] [address] [place] [id number] Jan, [facility] [address] [id number] [address] [place] [id number] 11 Jan, 2013 [facility] [address] [id number] [address] [place] [id number] 10 Jan, 2013 [facility] [address] [id number] [address] [place] [id number] 10 Jan, 2013 [facility] [address] [id number] [address] [place] [id number] 09 Jan, 2013 [facility] [address] [id number] [address] [place] [address], [place] [address] Jan, [facility] [address] [id number] [address] [place] [address], [place] [address] Jan, [facility] [address] [id number] [address] [place] [address], [place] [address] Dec, [facility] [address] [id number] [address] [place] [address], [place] [address] Dec, [facility] [address] [id number] [address] [place] [address], [place] [address] 16 Dec, 2012 [facility] [address] [id number] [address] [place] [address], [place] [address] Dec, [facility] [address] [id number] [address] [place] [address], [place] [address] Nov, [facility] [address] [id number] [address] [place] [address], [place] [address] Nov, [facility] [address] [id number] [address] [place] [address], [place] [address] Nov, [facility] [address] [id number] [address] [place] [address], [place] [address] Nov, [facility] [address] [id number] [address] [place] [address], [place] [address] Oct, [facility] [address] [id number] [address] [place] [address], [place] [address] Sep, [facility] [address] [id number] [address] [place] [address], [place] [address] August, [facility] [address] [id number] [address] [place] [address], [place] [address] August, [facility] [address] [id number] [address] [place] [address], [place] [address] August, [facility] [address] [id number] [address] [place] [address], [place] [address] August, [facility] [address] [id number] [address] [place] [address], [place] [address] August, [facility] [address] [id number] [address] [place] [address], [place] [address] August, [facility] [address] [id number] [address] [place] [address], [place] [address] August, [facility] [address] [id number] [address] [place] [address], [place] [address] August, [facility] [address] [id number] [address] [place] [address], [place] [address] August, [facility] [address] [id number] [address] [place] [address], [place] [address] August, [facility] [address] [id number] [address] [place] [address], [place] [address] August, [facility] [address] [id number] [address] [place] [address], [place] [address] August, [facility] [address] [id number] [address] [place] [address], [place] [address] Jul, [facility] [address] [id number] [address] [place] [address], [place] [address] Jul, [facility] [address] [id number] [address] [place] [address], [place] [address] 18 Jul, 2012 [facility] [address] [id number] [address] [place] [address], [place] [address] Jul, [facility] [address] [id number] [address] [place] [address], [place] [address] Jul, [facility] [address] [id number] [address] [place] [address], [place] [address] Jul, [facility] [address] [id number] [address] [place] [address], [place] [address] 04 Jul, 2012 [facility] [address] [id number] [address] [place] [address], [place] [address] Jul, [facility] [address] [id number] [address] [place] [address], [place] [address] Jul, [facility] [address] [id number] [address] [place] [address], [place] [address] Jul, [facility] [address] [id number] [address] [place] [address], [place] [address] Jul, [facility] [address] [id number] [address] [place] [address], [place] [address] Jun, [facility] [address] [id number] [address] [place] [address], [place] [address] Jun, [facility] [address] [id number] [address] [place] [address], [place] [address] Jun, [facility] [address] [id number] [address] [place] [address], [place] [address] Jun, [facility] [address] [id number] [address] [place] [address], [place] [address] May, [facility] [address] [id number] [address] [place] [address], [place] [address] May, [facility] [address] [id number] [address] [place] [address], [place] [address] May, [facility] [address] [id number] [address] [place] [address], [place] [address] May, [facility] [address] [id number] [address] [place] [address], [place] [address] May, [facility] [address] [id number] [address] [place] [address], [place] [address] May, [facility] [address] [id number] [address] [place] [address], [place] [address] Apr, [facility] [address] [id number] [address] [place] [address], [place] [address] Apr, [facility] [address] [id number] [address] [place] [address], [place] [address] 30 Apr, 2012 [facility] [address] [id number] [address] [place] [address], [place] [address] 28 Apr, 2012 [facility] [address] [id number] [address] [place] [address], [place] [address] 15 Mar, 2012 [facility] [address] [id number] [address] [place] [address], [place] [address] 14 Mar, 2012 [facility] [address] [id number] [address] [place] [address], [place] [address] Mar, [facility] [address] [id number] [address] [place] [address], [place] [address] Mar, [facility] [address] [id number] [address] [place] [address], [place] [address] Mar, [facility] [address] [id number] [address] [place] [address], [place] [address] Mar, [facility] [address] [id number] [address] [place] [address], [place] [address] Mar, [facility] [address] [id number] [address] [place] [address], [place] [address] Feb, [facility] [address] [id number] [address] [place] [address], [place] [address] Feb, [facility] [address] [id number] [address] [place] [address] Feb, [facility] [address] [id number] [address] [place] [address], [place] [address] Feb, [facility] [address] [id number] [address] [place] [address], [place] [address] Jan, [facility] [address] [id number] [address] [place] [address] Jan, [facility] [address] [id number] [address] [place] [address] Jan, [facility] [address] [id number] [address] [place] [address], [place] [address] Jan, [facility] [address] [id number] [address] [place] [address], [place] [address] Jan, [facility] [address] [id number] [address] [place] [address], [place] [address] Jan, [facility] [address] [id number] [address] [place] [address], [place] [address] Dec, [facility] [address] [id number] [address] [place] [address], [place] [address] Dec, [facility] [address] [id number] [address] [place] [address], [place] [address] Nov, [facility] [address] [id number] [address] [place] [address], [place] [address] Sep, [facility] [address] [id number] [address] [place] [address], [place] [address] August, [facility] [address] [id number] [address] [place] [address], [place] [address] August, [facility] [address] [id number] [address] [place] [address], [place] [address] August, [facility] [address] [id number] [address] [place] [address], [place] [address] August, [facility] [address] [id number] [address] [place] [address], [place] [address] August, [facility] [address] [id number] [address] [place] [address], [place] [address] Jun, [facility] [address] [id number] [address] [place] [address], [place] [address] Jun, [facility] [address] [id number] [address] [place] [address], [place] [address] Apr, [facility] [address] [id number] [address] [place] [address], [place] [address] 20 Apr, 2011 [facility] [address] [id number] [address] [place] [address], [place] [address] 23 Mar, 2011 [facility] [address] [id number] [address] [place] [address], [place] [address] 22 Feb, 2011 [facility] [address] [id number] [address] [place] [address], [place] [address] 14 Feb, 2011 [facility] [address] [id number] [address] [place] [address], [place] [address] 14 Feb, 2011 [facility] [address] [id number] [address] [place] [address], [place] [address] 17 Jan, 2011 [facility] [address] [id number] [address] [place] [address], [place] [address] 15 Jan, 2011 [facility] [address] [id number] [address] [place] [address], [place] [address] 15 Jan, 2011 [facility] [address] [id number] [address] [place] [address], [place] [address] 14 Jan, 2011 [facility] [address] [id number] [address] [place] [address], [place] [address] 15 May, 2010 [facility] [address] [id number] [address] [place] [address], [place] [address] 04 Mar, 2010 [facility] [address] [id number] [address] [place] [address], [place] [address] Oct, [facility] [address] [id number] [address] [place] [address], [place] [address] 14 Sep, 2009 [facility] [address] [id number] [address] [place] [address], [place] [address] 09 Mar, 2009 [facility] [address] [id number] [address] [place] [address], [place] [address] 27 Jan, 2009 [facility] [address] [id number] [address] [place], [place] [address] [address] Jan, [facility] [address] [facility] [id number] [address] [place] [address] May, IMMUNIZATIONS No Known Immunizations SOCIAL HISTORY [...]
--- OUTSIDE RECORDS SUMMARY | 2019-11-23 06:18 | XMS REPORT ---
Author Author Liana Fuchs Organization [facility] Address [address] [place] [address] Care Team Providers Care Train Announcer Name Role Phone PACHECO Fuchs Unavailable PROBLEMS Type Condition ICD9-CM Code REX26-IQ Code Onset Dates Condition S tatus SNOMED Code Problem Anxiety F41.9 Active 14574663 Problem Neck pain M54.2 Active 81314164 Problem Neuroforaminal stenosis of spine M99.89 Active 302590738494 Problem Hematuria, unspecified type R31.9 Ac tive 49815343 Problem Seasonal allergies J30.2 Active 4 26777710 Problem Abnormal glucose R73.09 Active 102 737898 Problem Rhinosinusitis J32.9 Active 33248 4004 Problem Abnormal renal ultrasound R93.429 Acti ve [id number] Problem Essential hypertension I10 Active 92793673 Problem Mixed hyperlipidemia E78.2 Active 93402741 Problem Hypokalemia E87.6 Active 83577116 Problem Chronic pain due to trauma G89.21 Act juanis [id number] ALLERGIES No Information ENCOUNTERS Encounter Location Date Diagnosis [place] [id number] [facility] [id number] [address] [place] [phone] Jul, [facility] [address] [facility] [id number] [address] [place] [address] Jun, Hypokalemia E87.6 [facility] [address] [facility] [id number] [address] [place] [address] Jun, [facility] [address] [facility] [id number] [address] [place] [address] Jun, Neuroforaminal stenosis of s pine M99.89 [facility] [address] [facility] [id number] [address] [place] [address] Jun, Lateral epicondylitis, left elbow M77.12 and Medial epicondylitis, left elbow M77.02 [place] [address] [id number] [address] [place] [address] 16 Jun, 2019 Foraminal stenosis of lumbar region M48.061 ; Segmental dysfunction of thoracic region M99.02 ; Segmental dysfunction of lumbar region M99.03 and Segmental dysfunction of sacral region M99.04 [place] [address] [id number] [address] [place] [address] May, Left elbow pain M25.522 [place] [address] [id number] [address] [place] [address] May, [place] [address] [id number] [address] [place] [address] May, Left elbow pain M25.522 [place] [address] [id number] [address] [place] [address] May, Neuroforaminal stenosis of s pine M99.89 [place] [address] [id number] [address] [place] [address] May, Rhinosinusitis J32.9 ; Left elbow pain M25.522 and Neck pain M54.2 [place] [address] [id number] [address] [place] [address] 14 May, 2019 Lateral epicondylitis of lef t elbow M77.12 [place] [address] [id number] [address] [place] [address] Apr, Neuroforaminal stenosis of s pine M99.89 [place] [address] [id number] [address] [place] [address] Apr, Essential hypertension I10 a nd Mixed hyperlipidemia E78.2 [place] [address] [id number] [address] [place] [address] Mar, Neuroforaminal stenosis of s pine M99.89 [place] [address] [facility] [id number] [address] [place] [address] Mar, Epicondylitis, lateral, left M77.12 [facility] [address] [facility] [id number] [address] [place] [address] Mar, [facility] [address] [facility] [id number] [address] [place] [address] Mar, Neuroforaminal stenosis of s pine M99.89 [facility] [address] [facility] [id number] [address] [place] [address] Feb, Neuroforaminal stenosis of s pine M99.89 ; Essential hypertension I10 ; Mixed hyperlipidemia E78.2 ; Encounter for immunization Z23 and Seasonal allergies J30.2 [facility] [address] [facility] [id number] [address] [place] [address] Jan, Neuroforaminal stenosis of s pine M99.89 [place] [address] [facility] [id number] [address] [place] [address] Dec, Neuroforaminal stenosis of s pine M99.89 [place] [address] [facility] [id number] [address] [place] [address] Dec, Neuroforaminal stenosis of s pine M99.89 [facility] [address] [facility] [id number] [address] [place] [address] Nov, [facility] [address] [facility] [id number] [address] [place] [address] Nov, Neuroforaminal stenosis of s pine M99.89 [facility] [address] [facility] [id number] [address] [place] [address] Nov, Acute non-recurrent maxillar y sinusitis J01.00 [facility] [address] [facility] [id number] [address] [place] [address] Oct, Hypokalemia E87.6 [facility] [address] [facility] [id number] [address] [place] [address] Oct, Wasp sting, undetermined int ent, initial encounter T63.464A and Cellulitis of left lower extremity L03.116 [place] [address] [id number] [address] [place] [address] Oct, Neuroforaminal stenosis of s pine M99.89 [place] [address] [id number] [address] [place] [address] Sep, [place] [address] [id number] [address] [place] [address] Sep, [place] [address] [id number] [address] [place] [address] 18 Sep, 2018 Routine screening for STI (s exually transmitted infection) Z11.3 [place] [address] [id number] [address] [place] [address] 14 Sep, 2018 Routine screening for STI (s exually transmitted infection) Z11.3 ; Well woman exam with routine gynecological exam Z01.419 and Breast cancer screening Z12.39 [place] [address] [id number] [address] [place] [address] 10 Sep, 2018 Neuroforaminal stenosis of s pine M99.89 [place] [address] [id number] [address] [place] [address] August, Neuroforaminal stenosis of s pine M99.89 [place] [address] [facility] [id number] [address] [place] [address] August, Neuroforaminal stenosis of s pine M99.89 ; Chronic pain due to trauma G89.21 and Mixed hyperlipidemia E78.2 [place] [address] [id number] [address] [place] [address] 16 Jul, 2018 Viral upper respiratory illn ess J06.9 and Acute non-recurrent frontal sinusitis J01.10 [place] [address] [id number] [address] [place] [address] 15 Jul, 2018 Congestion of nasal sinus R0 9.81 [place] [address] [id number] [address] [place] [address] Jul, Neuroforaminal stenosis of s pine M99.89 and Essential hypertension I10 [facility] [address] [id number] [address] [place] [address] May, Neuroforaminal stenosis of s pine M99.89 [facility] [address] [id number] [address] [place] [address] May, [facility] [address] [id number] [address] [place] [address] May, Congestion of nasal sinus R0 9.81 [facility] [address] [facility] [id number] [address] [place] [address] May, [facility] [address] [facility] [id number] [address] [place] [address] Apr, Neuroforaminal stenosis of s pine M99.89 [place] [address] [facility] [id number] [address] [place] [address] Apr, Neuroforaminal stenosis of s pine M99.89 and Chronic pain due to trauma G89.21 [facility] [address] [facility] [id number] [address] [place] [address] Mar, UTI (urinary tract infection ) N39.0 [facility] [address] [facility] [id number] [address] [place] [address] Mar, Vertigo R42 [facility] [address] [facility] [id number] [address] [place] [address] Mar, Neuroforaminal stenosis of s pine M99.89 [facility] [address] [id number] [address] [place] [address] Feb, Extensor tendon disruption M 67.89 [facility] [address] [facility] [id number] [address] [place] [address] Feb, Neuroforaminal stenosis of s pine M99.89 and High risk medication use Z79.899 [place] [address] [place] [id number] [address] [place] [address] Jan, Hypokalemia E87.6 [place] [address] [facility] [id number] [address] [place] [address] Jan, Flank pain R10.9 and Acute r ight-sided low back pain without sciatica M54.5 [place] [address] [facility] [id number] [address] [place] [address] Jan, Hypokalemia E87.6 [place] [address] [facility] [id number] [address] [place] [address] Jan, [place] [address] [place] [id number] [place] [address] Jan, URI, acute J06.9 [place] [address] [place] [id number] [place] [address] Jan, Neuroforaminal stenosis of s pine M99.89 [place] [address] [place] [id number] [place] [address] 13 Dec, 2017 Lateral epicondylitis, right elbow M77.11 [place] [address] [place] [id number] [place] [address] 11 Dec, 2017 Allergic rhinitis due to monica rosalina, unspecified seasonality J30.1 and Allergic conjunctivitis of both eyes H10.13 [place] [address] [place] [id number] [address] [place] [address] 10 Dec, 2017 Neuroforaminal stenosis of s pine M99.89 [place] [address] [place] [id number] [address] [place] [address] 06 Dec, 2017 Mixed hyperlipidemia E78.2 [place] [address] [place] [id number] [address] [place] [address] 05 Dec, 2017 Abnormal glucose R73.09 ; Ab normal renal ultrasound R93.429 ; Dysuria R30.0 ; Cystitis without hematuria N30.90 ; Hypokalemia E87.6 ; Mixed hyperlipidemia E78.2 and Hematuria, unspecified type R31.9 [place] [address] [facility] [id number] [place] [address] Nov, Hypokalemia E87.6 ; Mixed hy perlipidemia E78.2 and Hematuria, unspecified type R31.9 [place] [address] [facility] [id number] [address] [place] [address] Nov, [place] [address] [id number] [address] [place] [address] Nov, Hypokalemia E87.6 [place] [address] [facility] [id number] [address] [place] [address] Nov, [place] [address] [place] [id number] [place] [address] Nov, Abnormal renal ultrasound R9 3.429 [place] [address] [place] [id number] [address] [place] [address] Nov, Abnormal renal ultrasound R9 3.429 [place] [address] [place] [id number] [place] [address] Nov, Hematuria, unspecified type R31.9 and Neuroforaminal stenosis of spine M99.89 [place] [address] [address] Nov, Dysuria R30.0 [place] [address] [place] [id number] [address] [place] [address] Oct, Lateral epicondylitis, right elbow M77.11 [place] [address] [place] [id number] [place] [address] Oct, Neuroforaminal stenosis of s pine M99.89 ; Visit for TB skin test Z11.1 and Essential hypertension I10 [place] [address] [place] [id number] [address] [place] [address] Oct, [place] [address] [id number] [address] [place] [address] 12 Oct, 2017 Neuroforaminal stenosis of s pine M99.89 [place] [address] [id number] [address] [place] [address] 10 Oct, 2017 Visit for TB skin test Z11.1 [place] [address] [id number] [address] [place] [address] 05 Oct, 2017 Cystitis without hematuria N 30.90 [place] [address] [id number] [address] [place] [address] 28 Sep, 2017 Screening breast examination Z12.39 [place] [address] [id number] [address] [place] [address] 26 Sep, 2017 Dysuria R30.0 and Cystitis w ithout hematuria N30.90 [place] [address] [id number] [address] [place] [address] 14 Sep, 2017 Essential hypertension I10 a nd Neuroforaminal stenosis of spine M99.89 [place] [address] [id number] [address] [place] [address] 04 Sep, 2017 Abnormal glucose R73.09 [place] [address] [facility] [id number] [address] [place] [address] August, Lateral epicondylitis, right elbow M77.11 [place] [address] [facility] [id number] [address] [place] [address] August, Screen for STD (sexually tra nsmitted disease) Z11.3 [place] [address] [id number] [address] [place] [address] August, Neuroforaminal stenosis of s pine M99.89 ; Mixed hyperlipidemia E78.2 ; Elevated fasting glucose R73.01 ; Screening mammogram, encounter for Z12.31 and Encounter for well woman exam without gynecological exam Z00.00 [place] [address] [id number] [address] [place] [address] August, Neuroforaminal stenosis of s jose M99.89 [facility] [address] [id number] [address] [place] [address] August, Essential hypertension I10 ; Hypokalemia E87.6 and Mixed hyperlipidemia E78.2 [facility] [address] [id number] [address] [place] [address] Jul, [facility] [address] [id number] [address] [place] [address] Jul, Neuroforaminal stenosis of s jose M99.89 [facility] [address] [id number] [address] [place] [address] Jul, Lateral epicondylitis, right elbow M77.11 [facility] [address] [id number] [address] [place] [address] Jul, [facility] [address] [id number] [address] [place] [address] Jun, High ankle sprain of right l ower extremity, initial encounter S93.431A [facility] [address] [id number] [address] [place] [address] Jun, Essential hypertension I10 [facility] [address] [id number] [address] [place] [address] Jun, [facility] [address] [id number] [address] [place] [address] Jun, [facility] [address] [id number] [address] [place] [address] Jun, Neuroforaminal stenosis of s jose M99.89 [facility] [address] [id number] [address] [place] [address] Jun, Pain of right upper extremit y M79.601 and Essential hypertension I10 [facility] [address] [id number] [address] [place] [address] Jun, [place] [address] [address] Jun, Dysuria R30.0 ; Acute cystit is with hematuria N30.01 and Screen for STD (sexually transmitted disease) Z11.3 [place] [address] [address] May, Chronic pain due to trauma G 89.[address] [address] May, Essential hypertension I10 [address] [address] May, Neuroforaminal stenosis of s jose M99.[address] [address] Apr, Allergic reaction, initial e ncounter T78.40XA [address] [address] Apr, Low back pain, unspecified b ack pain laterality, unspecified chronicity, with sciatica presence unspecified M54.5 ; Acute cystitis with hematuria N30.01 ; Neuroforaminal stenosis of spine M99.89 ; Bilateral acute serous otitis media, recurrence not specified H65.03 ; Mixed hyperlipidemia E78.2 ; Essential hypertension I10 ; Immunization counseling Z71.89 and Encounter for immunization Z23 [address] [address] Apr, Neck pain M54.[address] [address] Mar, Neuroforaminal stenosis of s pine M99.89 [place] [address] [address] Mar, Pharyngitis due to other org anism J02.[address] [address] Feb, Neuroforaminal stenosis of s pine M99.89 [facility] [address] [id number] [address] [place] [address] Feb, UTI (urinary tract infection ) N39.0 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 [address] [id number] [address] [place] [address] Feb, [facility] [address] [id number] [address] [place] [address] Jan, Neuroforaminal stenosis of s pine M99.89 [facility] [address] [id number] [address] [place] [address] Dec, Neuroforaminal stenosis of s pine M99.89 [facility] [address] [id number] [address] [place] [address] Dec, Acute seasonal allergic rhin itis due to pollen J30.1 [facility] [address] [id number] [address] [place] [address] Dec, [facility] [address] [id number] [address] [place] [address] Dec, Acute seasonal allergic rhin itis, unspecified trigger J30.2 ; Allergic conjunctivitis of both eyes H10.13 and Dysfunction of both eustachian tubes H69.83 [facility] [address] [id number] [address] [place] [address] Dec, [facility] [address] [id number] [address] [place] [address] Dec, Nevus D22.9 [facility] [address] [id number] [address] [place] [address] Nov, Chronic pain due to trauma G 89.21 and Neuroforaminal stenosis of spine M99.89 [facility] [address] [id number] [address] [place] [address] Nov, Neuroforaminal stenosis of s pine M99.89 ; Essential hypertension I10 ; Mixed hyperlipidemia E78.2 ; Hypokalemia E87.6 ; Neck pain M54.[address] [facility] [address] [id number] [address] [place] [address] Oct, Neuroforaminal stenosis of s pine M99.89 [facility] [address] [id number] [address] [place] [address] Sep, Neuroforaminal stenosis of s pine M99.89 [facility] [address] [id number] [address] [place] [address] Sep, [facility] [address] [id number] [address] [place] [address] August, [facility] [address] [id number] [address] [place] [address] August, Neck pain M54.2 and Neurofor aminal stenosis of spine M99.89 [facility] [address] [id number] [address] [place] [address] August, Routine gynecological examin ation Z01.419 and Screening breast examination Z12.39 [facility] [address] [id number] [address] [place] [address] Jul, [facility] [address] [id number] [address] [place] [address] Jul, [facility] [address] [facility] [id number] [address] [place] [address] Jul, Neuroforaminal stenosis of s pine M99.89 [facility] [address] [id number] [address] [place] [address] Jul, [place] [address] [id number] [address] [place] [address] Jul, Neuroforaminal stenosis of l umbar 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 [place] [address] [id number] [address] [place] [address] Jul, [place] [address] [facility] [id number] [address] [place] [address] Jul, [place] [address] [id number] [address] [place] [address] Jun, Neuroforaminal stenosis of s jose M99.89 [place] [address] [facility] [id number] [address] [place] [address] Jun, Uterine leiomyoma, unspecifi ed location D25.9 and Allergic reaction caused by a drug, initial encounter T78.40XA [place] [address] [facility] [id number] [address] [place] [address] Jun, [place] [address] [facility] [id number] [address] [place] [address] May, UTI symptoms R39.9 and Pain of right sacroiliac joint M53.3 [place] [address] [facility] [id number] [address] [place] [address] May, Neuroforaminal stenosis of s jose M99.89 [place] [address] [facility] [id number] [address] [place] [address] May, [place] [address] [facility] [id number] [address] [place] [phone] May, Acute mucoid otitis media of left ear H65.112 and Acute non- recurrent maxillary sinusitis J01.00 [place] [address] [address] [facility] [id number] [address] [place] [phone] May, Acute bacterial conjunctivit is of both eyes H10.33 ; Left arm pain M79.602 and Hypokalemia E87.6 [place] [address] [address] [place] [id number] [address] [place] [phone] Apr, [place] [address] [address] [place] [id number] [address] [place] [phone] Apr, Neuroforaminal stenosis of s pine M99.89 ; Neck pain M54.2 ; Chronic pain due to trauma G89.21 ; Mixed hyperlipidemia E78.2 ; Essential hypertension I10 and Hypokalemia E87.6 [place] [address] [address] [place] [id number] [address] [place] [phone] Mar, Oral candidiasis B37.0 ; Nathaniel roforaminal stenosis of spine M99.89 ; Neck pain M54.2 and Chronic pain due to trauma G89.21 [place] [address] [address] [place] [id number] [address] [place] [phone] Feb, [place] [address] [address] [place] [id number] [address] [place] [phone] Feb, [place] [address] [address] [place] [id number] [address] [place] [phone] Feb, UTI (urinary tract infection ) N39.0 [place] [address] [address] [place] [id number] [address] [place] [phone] Feb, Dysuria R30.0 [place] [address] [address] [place] [id number] [address] [place] [phone] Feb, Dysuria R30.0 [place] [address] [address] [place] [id number] [address] [place] [phone] 02 Feb, 2016 Neuroforaminal stenosis of s pine M99.89 ; Neck pain M54.2 ; Essential hypertension I10 ; Chronic pain due to trauma G89.21 ; Dysuria R30.0 ; Abnormal MRI, shoulder R93.8 and Acute cystitis without hematuria N30.00 [place] [address] [address] [place] [id number] [address] [place] [phone] Jan, [place] [address] [address] [place] [id number] [address] [place] [phone] Jan, [facility] [address] [id number] [address] [place] [phone] Jan, [facility] [address] [id number] [address] [place] [phone] Jan, Abnormal MRI R93.8 [facility] [facility] [address] [id number] [address] [place] [address] 29 Dec, 2015 [facility] [address] [id number] [address] [place] [address] 15 Dec, 2015 Acute pain of left shoulder M25.512 [facility] [address] [id number] [address] [place] [address] [address], [address] [facility] [address] [id number] [address] [place] [address] [address], [address] [facility] [address] [id number] [address] [place] [address] 07 Dec, 2015 Acute pain of left shoulder M25.512 [facility] [address] [id number] [address] [place] [address] Nov, [facility] [address] [id number] [address] [place] [address] 16 Nov, 2015 Neuroforaminal stenosis of s pine M99.89 ; Neck pain M54.2 ; Abnormal mammogram R92.8 ; Essential hypertension I10 and Chronic pain due to trauma G89.21 [facility] [address] [id number] [address] [place] [address] Nov, [facility] [address] [id number] [address] [place] [address] Oct, Acute stress disorder F43.0 [facility] [address] [id number] [address] [place] [address] Oct, [facility] [address] [id number] [address] [place] [address] Oct, [facility] [address] [id number] [address] [place] [id number] 05 Oct, 2015 [facility] [address] [id number] [address] [place] [address] Sep, [facility] [address] [id number] [address] [place] [address] August, [facility] [address] [id number] [address] [place] [address] Jul, Neuroforaminal stenosis of s pine M99.89 ; Neck pain M54.2 ; Abnormal mammogram R92.8 and Essential hypertension I10 [facility] [address] [id number] [address] [place] [address] Jul, [facility] [address] [id number] [address] [place] [address] Jul, [facility] [address] [id number] [address] [place] [address] Jul, Abnormal mammogram R92.8 [facility] [address] [id number] [address] [place] [address] Jul, [facility] [address] [id number] [address] [place] [address] Jul, UTI (urinary tract infection ) N39.0 [facility] [address] [id number] [address] [place] [address] Jul, Dysuria R30.0 [facility] [address] [id number] [address] [place] [address] Jun, [facility] [address] [id number] [address] [place] [address] Jun, [facility] [address] [id number] [address] [place] [address] Jun, Hypokalemia E87.6 and Hematu martina R31.9 [facility] [address] [address] Jun, Hypokalemia E87.6 [place] [address] [address] Jun, [place] [address] [address] Jun, Hypokalemia E87.6 [place] [address] [address] Jun, Hypokalemia E87.6 [place] [address] [address] Jun, Neuroforaminal stenosis of s pine M99.89 ; Hypokalemia E87.6 ; Neck pain M54.2 ; Essential hypertension I10 ; Mixed hyperlipidemia E78.2 and Screening breast examination Z12.[address] [address] Jun, Dysuria R30.0 ; UTI (urinary tract infection) N39.0 and Hematuria R31.[address] [address] May, [address] [address] May, High risk sexual behavior Z7 2.51 ; Hypokalemia E87.6 ; Neuroforaminal stenosis of spine M99.89 ; Neck pain M54.2 ; Essential hypertension I10 ; Mixed hyperlipidemia E78.2 ; STD exposure Z20.2 and Concern about STD in female without diagnosis Z71.[address] [address] 16 May, 2015 Neuroforaminal stenosis of s pine M99.89 ; Neck pain M54.2 ; Hypokalemia E87.6 ; Essential hypertension I10 and Mixed hyperlipidemia E78.[address] [place] [address] 11 May, 2015 [facility] [address] [address] 08 May, 2015 High risk sexual behavior Z7 2.51 ; STD exposure Z20.2 and Concern about STD in female without diagnosis Z71.1 [place] [address] [address] May, [place] [address] [address] Apr, Neuroforaminal stenosis of s pine M99.89 ; Mixed hyperlipidemia E78.2 ; Essential hypertension I10 and Hypokalemia E87.6 [place] [address] [address] Mar, [place] [address] [address] Mar, Hypokalemia E87.6 [place] [address] [address] Mar, Neuroforaminal stenosis of s pine M99.89 ; Mixed hyperlipidemia E78.2 ; Neck pain M54.2 ; Essential hypertension I10 ; Abnormal fasting glucose R73.09 ; Hypokalemia E87.6 and Constipation K59.00 [place] [address] [address] Feb, Neuroforaminal stenosis of s pine M99.89 ; Mixed hyperlipidemia E78.2 ; Neck pain M54.2 ; Essential hypertension I10 ; Abnormal fasting glucose R73.09 ; Hypokalemia E87.6 and Constipation K59.00 [place] [address] [address] Feb, Elevated fasting blood sugar R73.01 [place] [address] [address] Feb, Elevated fasting blood sugar R73.01 [place] [id number] [id number] [address] [place] [address] Feb, Hair loss L65.9 [place] [address] [address] [facility] [id number] [address] [place] [address] Feb, Sinusitis J32.9 ; Essential hypertension I10 and Hair loss L65.9 [place] [address] [address] [facility] [id number] [address] [place] [address] Jan, [place] [address] [id number] [address] [place] [address] Jan, Essential hypertension I10 ; Neuroforaminal stenosis of spine M99.89 ; Neck pain M54.2 ; Mixed hyperlipidemia E78.2 and Anxiety F41.9 [place] [address] [address] [facility] [id number] [address] [place] [address] Jan, [place] [address] [address] [place] [id number] [place] [address] Jan, Mixed hyperlipidemia E78.2 ; Essential (primary) hypertension I10 ; Strain of muscle, fascia and tendon at neck level, subsequent encounter S16.1XXD and Tension-type headache, unspecified, not intractable G44.209 [place] [address] [address] [facility] [id number] [address] [place] [address] Dec, Lumbar back pain 724.2 and N euroforaminal stenosis of spine 724.00 [place] [address] [id number] [address] [place] [address] Nov, [place] [address] [id number] [address] [place] [address] Nov, Lumbar back pain 724.2 and N euroforaminal stenosis of spine 724.00 [place] [address] [address] [facility] [id number] [address] [place] [address] Nov, Edema 782.3 ; Lumbar back pa in 724.2 ; Essential hypertension, benign 401.1 ; Hyperlipemia 272.4 ; Neuroforaminal stenosis of spine 724.00 and Post-concussion headache 339.20 [facility] [address] [id number] [address] [place] [address] Nov, [facility] [address] [id number] [address] [place] [address] Nov, [facility] [address] [id number] [address] [place] [address] Oct, Essential hypertension, sheridan gn 401.1 [facility] [address] [id number] [address] [place] [address] Oct, Edema 782.3 ; Lumbar back pa in 724.2 ; Essential hypertension, benign 401.1 ; Hyperlipemia 272.4 ; Neuroforaminal stenosis of spine 724.00 and Post-concussion headache 339.20 [facility] [address] [id number] [address] [place] [address] Oct, [facility] [address] [id number] [address] [place] [address] Oct, Edema 782.3 [facility] [address] [facility] [id number] [address] [place] [address] Oct, Lumbar back pain 724.2 [place] [address] [address] [facility] [id number] [address] [place] [address] Oct, Cervicalgia 723.1 ; Lumbar b ack pain 724.2 and High risk medication use V58.69 [facility] [address] [id number] [address] [place] [address] Sep, [facility] [address] [id number] [address] [place] [address] Sep, Lumbar strain 847.2 [facility] [address] [facility] [id number] [address] [place] [address] August, Edema 782.3 and Eustachian t ube dysfunction 381.81 [facility] [address] [id number] [address] [place] [address] August, [facility] [address] [id number] [address] [place] [address] August, Eustachian tube dysfunction 381.81 [facility] [address] [id number] [address] [place] [address] Jul, Otalgia 388.70 and Otitis me jonathon 382.9 [facility] [address] [id number] [address] [place] [address] Jul, [facility] [address] [id number] [address] [place] [address] Jul, [facility] [address] [id number] [address] [place] [address] Jul, [facility] [address] [id number] [address] [place] [address] Jul, [facility] [address] [id number] [address] [place] [address] Jul, [facility] [address] [id number] [address] [place] [address] Jun, [facility] [address] [id number] [address] [place] [address] Jun, [facility] [address] [id number] [address] [place] [address] Jun, [facility] [address] [id number] [address] [place] [address] May, [facility] [address] [id number] [address] [place] [address] May, [facility] [address] [id number] [address] [place] [address] May, [facility] [address] [id number] [address] [place] [address] May, [facility] [address] [id number] [address] [place] [address], [place] [address] 17 May, 2014 [facility] [address] [id number] [address] [place] [address], [place] [address] May, 2014 [facility] [address] [id number] [address] [place] [address], [place] [address] May, 2014 [facility] [address] [id number] [address] [place] [address], [place] [address] May, 2014 [facility] [address] [id number] [address] [place] [address], [place] [address] May, [facility] [address] [id number] [address] [place] [address], [place] [address] May, [facility] [address] [id number] [address] [place] [address], [place] [address] Apr, [facility] [address] [id number] [address] [place] [address], [place] [address] Apr, [facility] [address] [id number] [address] [place] [address], [place] [address] Apr, [facility] [address] [id number] [address] [place] [address], [place] [address] Apr, [facility] [address] [id number] [address] [place] [address] Apr, [facility] [address] [id number] [address] [place] [address] Apr, [facility] [address] [id number] [address] [place] [address], [place] [address] Apr, [facility] [address] [id number] [address] [place] [address], [place] [address] Apr, [facility] [address] [id number] [address] [place] [address] Apr, [facility] [address] [id number] [address] [place] [address], [place] [address] Apr, [facility] [address] [id number] [address] [place] [address], [place] [address] Apr, [facility] [address] [id number] [address] [place] [address], [place] [address] Apr, [facility] [address] [id number] [address] [place] [address], [place] [address] Apr, [facility] [address] [id number] [address] [place] [address], [place] [address] Apr, [facility] [address] [id number] [address] [place] [address], [place] [address] Apr, [facility] [address] [id number] [address] [place] [address], [place] [address] Mar, [facility] [address] [id number] [address] [place] [address], [place] [address] Mar, [facility] [address] [id number] [address] [place] [address], [place] [address] Mar, [facility] [address] [id number] [address] [place] [address], [place] [address] Mar, [facility] [address] [id number] [address] [place] [address], [place] [address] Feb, [facility] [address] [id number] [address] [place] [address], [place] [address] Feb, [facility] [address] [id number] [address] [place] [address], [place] [address] Feb, [facility] [address] [id number] [address] [place] [address], [place] [address] Feb, [facility] [address] [id number] [address] [place] [address], [place] [address] Jan, [facility] [address] [id number] [address] [place] [address], [place] [address] Jan, [facility] [address] [id number] [facility] [place] [address] Jan, [facility] [address] [id number] [address] [place] [address], [place] [address] Jan, [facility] [address] [id number] [address] [place] [address], [place] [address] Jan, [facility] [address] [id number] [address] [place] [address], [place] [address] Jan, [facility] [address] [id number] [address] [place] [address], [place] [address] Jan, [facility] [address] [id number] [address] [place] [address], [place] [address] Jan, [facility] [address] [id number] [address] [place] [address], [place] [address] Dec, [facility] [address] [id number] [address] [place] [address], [place] [address] Dec, 2013 [facility] [address] [id number] [address] [place] [address], [place] [address] Dec, [facility] [address] [id number] [address] [place] [address], [place] [address] Dec, [facility] [address] [id number] [address] [place] [address], [place] [address] Oct, [facility] [address] [id number] [address] [place] [address], [place] [address] 14 Oct, 2013 [facility] [address] [id number] [address] [place] [address], [place] [address] Oct, [facility] [address] [id number] [address] [place] [address], [place] [address] Oct, [facility] [address] [id number] [address] [place] [address], [place] [address] Oct, [facility] [address] [id number] [address] [place] [address], [place] [address] Oct, [facility] [address] [id number] [facility] [place] [address] Oct, [facility] [address] [id number] [facility] [place] [address] Oct, [facility] [address] [id number] [facility] [place] [address] Sep, [facility] [address] [id number] [address] [place] [address], [place] [address] Sep, [facility] [address] [id number] [address] [place] [address], [place] [address] Sep, [facility] [address] [id number] [address] [place] [address], [place] [address] Sep, [facility] [address] [id number] [address] [place] [address], [place] [address] Sep, [facility] [address] [id number] [address] [place] [address], [place] [address] Sep, [facility] [address] [id number] [address] [place] [address], [place] [address] Sep, [facility] [address] [id number] [address] [place] [address], [place] [address] Sep, [facility] [address] [id number] [address] [place] [address], [place] [address] Sep, [facility] [address] [id number] [address] [place] [address], [place] [address] Sep, [facility] [address] [id number] [address] [place] [address], [place] [address] August, [facility] [address] [id number] [address] [place] [address], [place] [address] August, [facility] [address] [id number] [address] [place] [address], [place] [address] August, [facility] [address] [id number] [address] [place] [address], [place] [address] August, [facility] [address] [id number] [address] [place] [address], [place] [address] August, [facility] [address] [id number] [address] [place] [address], [place] [address] August, [facility] [address] [id number] [address] [place] [address], [place] [address] August, [facility] [address] [id number] [address] [place] [address], [place] [address] August, [facility] [address] [id number] [address] [place] [address], [place] [address] August, [facility] [address] [id number] [address] [place] [address], [place] [address] August, [facility] [address] [id number] [address] [place] [address], [place] [address] August, [facility] [address] [id number] [address] [place] [address], [place] [address] August, [facility] [address] [id number] [address] [place] [address], [place] [address] Jul, [facility] [address] [id number] [address] [place] [address], [place] [address] Jul, [facility] [address] [id number] [address] [place] [address], [place] [address] Jul, [facility] [address] [id number] [address] [place] [address], [place] [address] Jul, [facility] [address] [id number] [address] [place] [address], [place] [address] Jul, [facility] [address] [id number] [address] [place] [address], [place] [address] Jul, [facility] [address] [id number] [address] [place] [address], [place] [address] Jun, [facility] [address] [id number] [address] [place] [address], [place] [address] Jun, [facility] [address] [id number] [address] [place] [address], [place] [address] May, [facility] [address] [id number] [address] [place] [address], [place] [address] May, [facility] [address] [id number] [address] [place] [address], [place] [address] Apr, [facility] [address] [id number] [address] [place] [address], [place] [address] Apr, [facility] [address] [id number] [address] [place] [address], [place] [address] Apr, [facility] [address] [id number] [address] [place] [address], [place] [address] Apr, [facility] [address] [id number] [address] [place] [address], [place] [address] Apr, [facility] [address] [id number] [address] [place] [address], [place] [address] Apr, [facility] [address] [id number] [address] [place] [address], [place] [address] Apr, [facility] [address] [id number] [address] [place] [address], [place] [address] Apr, [facility] [address] [id number] [address] [place] [address], [place] [address] Apr, [facility] [address] [id number] [address] [place] [address], [place] [address] Apr, [facility] [address] [id number] [address] [place] [address], [place] [address] Apr, [facility] [address] [id number] [address] [place] [address], [place] [address] Apr, [facility] [address] [id number] [address] [place] [address] Apr, [facility] [address] [id number] [address] [place] [address], [place] [address] Mar, [facility] [address] [id number] [address] [place] [address] Mar, [facility] [address] [id number] [address] [place] [address], [place] [address] Mar, [facility] [address] [id number] [address] [place] [address] Mar, [facility] [address] [id number] [address] [place] [address], [place] [address] Feb, [facility] [address] [id number] [address] [place] [address], [place] [address] Feb, [facility] [address] [id number] [address] [place] [address], [place] [address] Feb, [facility] [address] [id number] [address] [place] [address], [place] [address] Feb, [facility] [address] [id number] [address] [place] [address] 14 Jan, 2013 [facility] [address] [id number] [address] [place] [id number] 14 Jan, 2013 [facility] [address] [id number] [address] [place] [address] Jan, [facility] [address] [id number] [address] [place] [id number] 11 Jan, 2013 [facility] [address] [id number] [address] [place] [address] 10 Jan, 2013 [facility] [address] [id number] [address] [place] [address] 10 Jan, 2013 [facility] [address] [id number] [address] [place] [id number] 09 Jan, 2013 [facility] [address] [id number] [address] [place] [address], [place] [address] Jan, [facility] [address] [id number] [address] [place] [address], [place] [address] Jan, [facility] [address] [id number] [address] [place] [address], [place] [address] Dec, [facility] [address] [id number] [address] [place] [address], [place] [address] Dec, [facility] [address] [id number] [address] [place] [address], [place] [address] 16 Dec, 2012 [facility] [address] [id number] [address] [place] [address], [place] [address] Dec, [facility] [address] [id number] [address] [place] [address], [place] [address] Nov, [facility] [address] [id number] [address] [place] [address], [place] [address] Nov, [facility] [address] [id number] [address] [place] [address], [place] [address] Nov, [facility] [address] [id number] [address] [place] [address], [place] [address] Nov, [facility] [address] [id number] [address] [place] [address], [place] [address] Oct, [facility] [address] [id number] [address] [place] [address], [place] [address] Sep, [facility] [address] [id number] [address] [place] [address], [place] [address] August, [facility] [address] [id number] [address] [place] [address], [place] [address] August, [facility] [address] [id number] [address] [place] [address], [place] [address] August, [facility] [address] [id number] [address] [place] [address], [place] [address] August, [facility] [address] [id number] [address] [place] [address], [place] [address] August, [facility] [address] [id number] [address] [place] [address], [place] [address] August, [facility] [address] [id number] [address] [place] [address], [place] [address] August, [facility] [address] [id number] [address] [place] [address], [place] [address] August, [facility] [address] [id number] [address] [place] [address], [place] [address] August, [facility] [address] [id number] [address] [place] [address], [place] [address] August, [facility] [address] [id number] [address] [place] [address], [place] [address] August, [facility] [address] [id number] [address] [place] [address], [place] [address] August, [facility] [address] [id number] [address] [place] [address], [place] [address] Jul, [facility] [address] [id number] [address] [place] [address], [place] [address] Jul, [facility] [address] [id number] [address] [place] [address], [place] [address] 18 Jul, 2012 [facility] [address] [id number] [address] [place] [address], [place] [address] Jul, [facility] [address] [id number] [address] [place] [address], [place] [address] Jul, [facility] [address] [id number] [address] [place] [address], [place] [address] Jul, [facility] [address] [id number] [address] [place] [address], [place] [address] 04 Jul, 2012 [facility] [address] [id number] [address] [place] [address], [place] [address] Jul, [facility] [address] [id number] [address] [place] [address], [place] [address] Jul, [facility] [address] [id number] [address] [place] [address], [place] [address] Jul, [facility] [address] [id number] [address] [place] [address], [place] [address] Jul, [facility] [address] [id number] [address] [place] [address], [place] [address] Jun, [facility] [address] [id number] [address] [place] [address], [place] [address] Jun, [facility] [address] [id number] [address] [place] [address], [place] [address] Jun, [facility] [address] [id number] [address] [place] [address], [place] [address] Jun, [facility] [address] [id number] [address] [place] [address], [place] [address] May, [facility] [address] [id number] [address] [place] [address], [place] [address] May, [facility] [address] [id number] [address] [place] [address], [place] [address] May, [facility] [address] [id number] [address] [place] [address], [place] [address] May, [facility] [address] [id number] [address] [place] [address], [place] [address] May, [facility] [address] [id number] [address] [place] [address], [place] [address] May, [facility] [address] [id number] [address] [place] [address], [place] [address] Apr, [facility] [address] [id number] [address] [place] [address], [place] [address] Apr, [facility] [address] [id number] [address] [place] [address], [place] [address] 30 Apr, 2012 [facility] [address] [id number] [address] [place] [address], [place] [address] 28 Apr, 2012 [facility] [address] [id number] [address] [place] [address], [place] [address] 15 Mar, 2012 [facility] [address] [id number] [address] [place] [address], [place] [address] 14 Mar, 2012 [facility] [address] [id number] [address] [place] [address], [place] [address] Mar, [facility] [address] [id number] [address] [place] [address], [place] [address] Mar, [facility] [address] [id number] [address] [place] [address], [place] [address] Mar, [facility] [address] [id number] [address] [place] [address], [place] [address] Mar, [facility] [address] [id number] [address] [place] [address], [place] [address] Mar, [facility] [address] [id number] [address] [place] [address], [place] [address] Feb, [facility] [address] [id number] [address] [place] [address], [place] [address] Feb, [facility] [address] [id number] [address] [place] [address] Feb, [facility] [address] [id number] [address] [place] [address], [place] [address] Feb, [facility] [address] [id number] [address] [place] [address], [place] [address] Jan, [facility] [address] [id number] [address] [place] [address] Jan, [facility] [address] [id number] [address] [place] [address] Jan, [facility] [address] [id number] [address] [place] [address], [place] [address] Jan, [facility] [address] [id number] [address] [place] [address], [place] [address] Jan, [facility] [address] [id number] [address] [place] [address], [place] [address] Jan, [facility] [address] [id number] [address] [place] [address], [place] [address] Dec, [facility] [address] [id number] [address] [place] [address], [place] [address] Dec, [facility] [address] [id number] [address] [place] [address], [place] [address] Nov, [facility] [address] [id number] [address] [place] [address], [place] [address] Sep, [facility] [address] [id number] [address] [place] [address], [place] [address] August, [facility] [address] [id number] [address] [place] [address], [place] [address] August, [facility] [address] [id number] [address] [place] [address], [place] [address] August, [facility] [address] [id number] [address] [place] [address], [place] [address] August, [facility] [address] [id number] [address] [place] [address], [place] [address] August, [facility] [address] [id number] [address] [place] [address], [place] [address] Jun, [facility] [address] [id number] [address] [place] [address], [place] [address] Jun, [facility] [address] [id number] [address] [place] [address], [place] [address] Apr, [facility] [address] [id number] [address] [place] [address], [place] [address] 20 Apr, 2011 [facility] [address] [id number] [address] [place] [address], [place] [address] 23 Mar, 2011 [facility] [address] [id number] [address] [place] [address], [place] [address] 22 Feb, 2011 [facility] [address] [id number] [address] [place] [address], [place] [address] 14 Feb, 2011 [facility] [address] [id number] [address] [place] [address], [place] [address] 14 Feb, 2011 [facility] [address] [id number] [address] [place] [address], [place] [address] 17 Jan, 2011 [facility] [address] [id number] [address] [place] [address], [place] [address] 15 Jan, 2011 [facility] [address] [id number] [address] [place] [address], [place] [address] 15 Jan, 2011 [facility] [address] [id number] [address] [place] [address], [place] [address] 14 Jan, 2011 [facility] [address] [id number] [address] [place] [address], [place] [address] 15 May, 2010 [facility] [address] [id number] [address] [place] [address], [place] [address] 04 Mar, 2010 [facility] [address] [id number] [address] [place] [address], [place] [address] Oct, [facility] [address] [id number] [address] [place] [address], [place] [address] 14 Sep, 2009 [facility] [address] [id number] [address] [place] [address], [place] [address] 09 Mar, 2009 [facility] [address] [id number] [address] [place] [address], [place] [address] 27 Jan, 2009 [facility] [address] [id number] [address] [place] [address] [address] Jan, [facility] [address] [facility] [address] [id number] [address] [place] [address] May, IMMUNIZATIONS No Known Immunizations SOCIAL HISTORY [...]
--- OUTSIDE RECORDS SUMMARY | 2019-11-23 06:19 | XMS REPORT ---
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 Active 568068170202 Problem Hematuria, unspecified type R31.9 Ac tive 92020160 Problem Seasonal allergies J30.2 Active 4 53556174 Problem Abnormal glucose R73.09 Active 102 875013 Problem Rhinosinusitis J32.9 Active 41903 4004 Problem Abnormal renal ultrasound R93.429 Acti ve [id number] Problem Essential hypertension I10 Active 60546723 Problem Mixed hyperlipidemia E78.2 Active 62774140 Problem Hypokalemia E87.6 Active 57320592 Problem Chronic pain due to trauma G89.21 Act juanis [id number] ALLERGIES No Information ENCOUNTERS Encounter Location Date Diagnosis [place] [address] [address] Jul, [place] [address] [address] Jun, Neuroforaminal stenosis of spine M99.89 [place] [address] [address] Jun, Lateral epicondylitis, left elbow M77.12 and Medial epicondylitis, left elbow M77.02 [place] [address] [address] Jun, Foraminal stenosis of lumbar region M48. 061 ; Segmental dysfunction of thoracic region M99.02 ; Segmental dysfunction of lumbar region M99.03 and Segmental dysfunction of sacral region M99.04 [place] [address] [address] 28 May, 2019 Left elbow pain M25.522 [place] [address] [address] May, [facility] [address] [address] May, Left elbow pain M25.522 [place] [address] [address] May, Neuroforaminal stenosis of spine M99.89 [place] [address] [address] May, Rhinosinusitis J32.9 ; Left elbow pain M 25.522 and Neck pain M54.2 [place] [address] [address] 14 May, 2019 Lateral epicondylitis of left elbow M77. 12 [place] [address] [address] Apr, Neuroforaminal stenosis of spine M99.89 [place] [address] [address] Apr, Essential hypertension I10 and Mixed hyp erlipidemia E78.2 [place] [address] [address] Mar, Neuroforaminal stenosis of spine M99.89 [place] [address] [address] Mar, Epicondylitis, lateral, left M77.12 [place] [address] [address] Mar, [place] [address] [address] Mar, Neuroforaminal stenosis of spine M99.89 [place] [address] [address] Feb, Neuroforaminal stenosis of spine M99.89 ; Essential hypertension I10 ; Mixed hyperlipidemia E78.2 ; Encounter for immunization Z23 and Seasonal allergies J30.2 [facility] [address] [address] Jan, Neuroforaminal stenosis of spine M99.89 [facility] [address] [address] Dec, Neuroforaminal stenosis of spine M99.89 [facility] [address] [address] Dec, Neuroforaminal stenosis of spine M99.89 [place] [address] [address] Nov, [place] [address] [address] Nov, Neuroforaminal stenosis of spine M99.89 [place] [address] [address] Nov, Acute non-recurrent maxillary sinusitis J01.00 [place] [address] [address] Oct, Hypokalemia E87.6 [facility] [address] [facility] [id number] [address] [place] [address] Oct, Wasp sting, undetermined int ent, initial encounter T63.464A and Cellulitis of left lower extremity L03.116 [facility] [address] [address] Oct, Neuroforaminal stenosis of spine M99.89 [facility] [address] [address] Sep, [facility] [address] [address] Sep, [place] [address] [address] Sep, Routine screening for STI (sexually veronica smitted infection) Z11.3 [place] [address] [address] 14 Sep, 2018 Routine screening for STI (sexually veronica smitted infection) Z11.3 ; Well woman exam with routine gynecological exam Z01.419 and Breast cancer screening Z12.39 [place] [address] [address] 10 Sep, 2018 Neuroforaminal stenosis of spine M99.89 [place] [address] [address] August, Neuroforaminal stenosis of spine M99.89 [place] [address] [address] August, Neuroforaminal stenosis of spine M99.89 ; Chronic pain due to trauma G89.21 and Mixed hyperlipidemia E78.2 [place] [address] [address] Jul, Viral upper respiratory illness J06.9 an d Acute non-recurrent frontal sinusitis J01.10 [place] [address] [address] Jul, Congestion of nasal sinus R09.81 [place] [address] [address] Jul, Neuroforaminal stenosis of spine M99.89 and Essential hypertension I10 [place] [address] [address] May, Neuroforaminal stenosis of spine M99.89 [place] [address] [address] May, [place] [address] [address] May, Congestion of nasal sinus R09.81 [place] [address] [address] May, [place] [address] [address] Apr, Neuroforaminal stenosis of spine M99.89 [place] [address] [address] Apr, Neuroforaminal stenosis of spine M99.89 and Chronic pain due to trauma G89.21 [place] [address] [address] Mar, UTI (urinary tract infection) N39.0 [place] [address] [address] Mar, Vertigo R42 [place] [address] [address] Mar, Neuroforaminal stenosis of spine M99.89 [place] [address] [address] Feb, Extensor tendon disruption M67.89 [place] [address] [address] Feb, Neuroforaminal stenosis of spine M99.89 and High risk medication use Z79.899 [place] [address] [address] Jan, Hypokalemia E87.6 [place] [address] [address] Jan, Flank pain R10.9 and Acute right-sided l ow back pain without sciatica M54.5 [place] [address] [address] Jan, Hypokalemia E87.6 [place] [address] [address] Jan, [place] [address] [address] Jan, URI, acute J06.9 [place] [address] [address] 05 Jan, 2018 Neuroforaminal stenosis of spine M99.89 [place] [address] [address] 13 Dec, 2017 Lateral epicondylitis, right elbow M77.1 1 [place] [address] [address] 11 Dec, 2017 Allergic rhinitis due to pollen, unspeci fied seasonality J30.1 and Allergic conjunctivitis of both eyes H10.13 [place] [address] [address] 10 Dec, 2017 Neuroforaminal stenosis of spine M99.89 [place] [address] [address] 06 Dec, 2017 Mixed hyperlipidemia E78.2 [place] [address] [address] 05 Dec, 2017 Abnormal glucose R73.09 ; Abnormal renal ultrasound R93.429 ; Dysuria R30.0 ; Cystitis without hematuria N30.90 ; Hypokalemia E87.6 ; Mixed hyperlipidemia E78.2 and Hematuria, unspecified type R31.9 [place] [address] [address] Nov, Hypokalemia E87.6 ; Mixed hyperlipidemia E78.2 and Hematuria, unspecified type R31.9 [place] [address] [address] Nov, [place] [address] [address] Nov, Hypokalemia E87.6 [place] [address] [address] Nov, [place] [address] [address] Nov, Abnormal renal ultrasound R93.429 [place] [address] [place] [id number] Nov, Abnormal renal ultrasound R93.429 [place] [address] [address] Nov, Hematuria, unspecified type R31.9 and Ne uroforaminal stenosis of spine M99.89 [place] [address] [address] Nov, Dysuria R30.0 [place] [address] [address] Oct, Lateral epicondylitis, right elbow M77.1 1 [place] [address] [address] Oct, Neuroforaminal stenosis of spine M99.89 ; Visit for TB skin test Z11.1 and Essential hypertension I10 [place] [address] [address] Oct, [place] [address] [address] Oct, Neuroforaminal stenosis of spine M99.89 [place] [address] [address] Oct, Visit for TB skin test Z11.1 [place] [address] [address] Oct, Cystitis without hematuria N30.90 [place] [address] [address] Sep, Screening breast examination Z12.39 [place] [address] [address] Sep, Dysuria R30.0 and Cystitis without hemat uria N30.90 [place] [address] [address] Sep, Essential hypertension I10 and Neurofora ingrid stenosis of spine M99.89 [place] [address] [address] Sep, Abnormal glucose R73.09 [place] [address] [address] August, Lateral epicondylitis, right elbow M77.1 1 [place] [address] [address] August, Screen for STD (sexually transmitted dis ease) Z11.3 [place] [address] [address] August, Neuroforaminal stenosis of spine M99.89 ; Mixed hyperlipidemia E78.2 ; Elevated fasting glucose R73.01 ; Screening mammogram, encounter for Z12.31 and Encounter for well woman exam without gynecological exam Z00.00 [place] [address] [address] August, Neuroforaminal stenosis of spine M99.89 [place] [address] [address] August, Essential hypertension I10 ; Hypokalemia E87.6 and Mixed hyperlipidemia E78.2 [place] [address] [address] Jul, [place] [address] [address] Jul, Neuroforaminal stenosis of spine M99.89 [place] [address] [address] Jul, Lateral epicondylitis, right elbow M77.1 1 [place] [address] [address] Jul, [place] [address] [address] Jun, High ankle sprain of right lower extremi ty, initial encounter S93.431A [place] [address] [address] Jun, Essential hypertension I10 [place] [address] [address] Jun, [place] [address] [address] Jun, [place] [address] [address] Jun, Neuroforaminal stenosis of spine M99.89 [place] [address] [address] Jun, Pain of right upper extremity M79.601 an d Essential hypertension I10 [place] [address] [address] Jun, [place] [address] [address] Jun, Dysuria R30.0 ; Acute cystitis with keturah turia N30.01 and Screen for STD (sexually transmitted disease) Z11.3 [place] [address] [address] May, Chronic pain due to trauma G89.21 [place] [address] [address] May, Essential hypertension I10 [place] [address] [address] May, Neuroforaminal stenosis of spine M99.89 [place] [address] [address] Apr, Allergic reaction, initial encounter T78 .40XA [place] [address] [address] Apr, Low back pain, unspecified back pain lat erality, unspecified chronicity, with sciatica presence unspecified M54.5 ; Acute cystitis with hematuria N30.01 ; Neuroforaminal stenosis of spine M99.89 ; Bilateral acute serous otitis media, recurrence not specified H65.03 ; Mixed hyperlipidemia E78.2 ; Essential hypertension I10 ; Immunization counseling Z71.89 and Encounter for immunization Z23 [place] [address] [address] 08 Apr, 2017 Neck pain M54.2 [place] [address] [address] Mar, Neuroforaminal stenosis of spine M99.89 [place] [address] [address] Mar, Pharyngitis due to other organism J02.8 [place] [address] [address] Feb, Neuroforaminal stenosis of spine M99.89 [place] [address] [address] 08 Feb, 2017 UTI (urinary tract infection) N39.0 [place] [address] [address] Feb, Recent urinary tract infection Z87.440 ; Neuroforaminal stenosis of spine M99.89 ; Neck pain M54.2 ; Chronic pain due to trauma G89.21 and Recurrent UTI N39.0 [place] [address] [address] Feb, [place] [address] [address] Jan, Neuroforaminal stenosis of spine M99.89 [place] [address] [address] Dec, Neuroforaminal stenosis of spine M99.89 [place] [address] [address] 18 Dec, 2016 Acute seasonal allergic rhinitis due to pollen J30.1 [place] [address] [address] 08 Dec, 2016 [place] [address] [address] Dec, Acute seasonal allergic rhinitis, unspec ified trigger J30.2 ; Allergic conjunctivitis of both eyes H10.13 and Dysfunction of both eustachian tubes H69.83 [place] [address] [address] 07 Dec, 2016 [place] [address] [address] 06 Dec, 2016 Nevus D22.9 [place] [address] [address] Nov, Chronic pain due to trauma G89.21 and Ne uroforaminal stenosis of spine M99.[address] [address] Nov, Neuroforaminal stenosis of spine M99.89 ; Essential hypertension I10 ; Mixed hyperlipidemia E78.2 ; Hypokalemia E87.6 ; Neck pain M54.2 and Nevus D22.9 [place] [address] [address] Oct, Neuroforaminal stenosis of spine M99.89 [place] [address] [address] Sep, Neuroforaminal stenosis of spine M99.89 [place] [address] [address] Sep, [place] [address] [address] August, [address] [address] August, Neck pain M54.2 and Neuroforaminal steno sis of spine M99.89 [place] [address] [address] August, Routine gynecological examination Z01.41 9 and Screening breast examination Z12.39 [place] [address] [address] Jul, [facility] [address] [address] Jul, [facility] [address] [address] Jul, Neuroforaminal stenosis of spine M99.89 [facility] [address] [address] Jul, [facility] [address] [address] Jul, 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 [facility] [address] [address] Jul, [facility] [address] [address] Jul, [facility] [address] [address] Jun, Neuroforaminal stenosis of spine M99.89 [facility] [address] [address] Jun, Uterine leiomyoma, unspecified location D25.9 and Allergic reaction caused by a drug, initial encounter T78.40XA [facility] [address] [address] Jun, [facility] [address] [address] May, UTI symptoms R39.9 and Pain of right sac roiliac joint M53.3 [facility] [address] [address] May, Neuroforaminal stenosis of spine M99.89 [facility] [address] [address] May, [facility] [address] [address] May, Acute mucoid otitis media of left ear H6 5.112 and Acute non-recurrent maxillary sinusitis J01.00 [place] [address] [address] May, Acute bacterial conjunctivitis of both e yes H10.33 ; Left arm pain M79.602 and Hypokalemia E87.6 [place] [address] [address] Apr, [place] [address] [address] Apr, Neuroforaminal stenosis of spine M99.89 ; Neck pain M54.2 ; Chronic pain due to trauma G89.21 ; Mixed hyperlipidemia E78.2 ; Essential hypertension I10 and Hypokalemia E87.6 [place] [address] [address] Mar, Oral candidiasis B37.0 ; Neuroforaminal stenosis of spine M99.89 ; Neck pain M54.2 and Chronic pain due to trauma G89.21 [place] [address] [address] Feb, [place] [address] [address] Feb, [place] [address] [address] Feb, UTI (urinary tract infection) N39.0 [place] [address] [address] Feb, Dysuria R30.0 [place] [address] [address] 08 Feb, 2016 Dysuria R30.0 [place] [address] [address] 02 Feb, 2016 Neuroforaminal stenosis of spine M99.89 ; Neck pain M54.2 ; Essential hypertension I10 ; Chronic pain due to trauma G89.21 ; Dysuria R30.0 ; Abnormal MRI, shoulder R93.8 and Acute cystitis without hematuria N30.00 [facility] [address] [place] [id number] [place] [address] Jan, [facility] [address] [address] Jan, [facility] [address] [address] Jan, [facility] [address] [address] Jan, Abnormal MRI R93.8 [facility] [address] [place] [id number] [place] [address] 29 Dec, 2015 [facility] [address] [facility] [id number] [address] [place] [address] 15 Dec, 2015 Acute pain of left shoulder M25.512 [facility] [address] [address] 09 Dec, 2015 [facility] [address] [address] 08 Dec, 2015 [facility] [address] [address] 07 Dec, 2015 Acute pain of left shoulder M25.512 [facility] [address] [address] Nov, [facility] [address] [address] Nov, Neuroforaminal stenosis of spine M99.89 ; Neck pain M54.2 ; Abnormal mammogram R92.8 ; Essential hypertension I10 and Chronic pain due to trauma G89.21 [facility] [address] [address] Nov, [facility] [address] [address] Oct, Acute stress disorder F43.0 [facility] [address] [address] Oct, [facility] [address] [place] [id number] [place] [address] Oct, [facility] [address] [place] [id number] [place] [address] Oct, [facility] [address] [place] [id number] [place] [address] Sep, [facility] [address] [place] [id number] [place] [address] August, [facility] [address] [place] [id number] [place] [address] Jul, Neuroforaminal stenosis of spine M99.89 ; Neck pain M54.2 ; Abnormal mammogram R92.8 and Essential hypertension I10 [facility] [address] [place] [id number] [place] [address] Jul, [facility] [address] [address] Jul, [facility] [address] [place] [id number] [place] [address] Jul, Abnormal mammogram R92.8 [facility] [address] [address] Jul, [facility] [address] [place] [id number] [place] [address] Jul, UTI (urinary tract infection) N39.0 [facility] [address] [place] [id number] [place] [address] Jul, Dysuria R30.0 [facility] [address] [place] [id number] [place] [address] Jun, [facility] [address] [address] Jun, [facility] [address] [place] [id number] [place] [address] Jun, Hypokalemia E87.6 and Hematuria R31.9 [facility] [address] [address] Jun, Hypokalemia E87.6 [place] [address] [address] Jun, [place] [address] [address] Jun, Hypokalemia E87.6 [place] [address] [address] Jun, Hypokalemia E87.6 [place] [address] [address] 15 Jun, 2015 Neuroforaminal stenosis of spine M99.89 ; Hypokalemia E87.6 ; Neck pain M54.2 ; Essential hypertension I10 ; Mixed hyperlipidemia E78.2 and Screening breast examination Z12.39 [place] [address] [address] 08 Jun, 2015 Dysuria R30.0 ; UTI (urinary tract infec tion) N39.0 and Hematuria R31.9 [place] [address] [address] May, [place] [address] [address] 18 May, 2015 High risk sexual behavior Z72.51 ; Hypok alemia E87.6 ; Neuroforaminal stenosis of spine M99.89 ; Neck pain M54.2 ; Essential hypertension I10 ; Mixed hyperlipidemia E78.2 ; STD exposure Z20.2 and Concern about STD in female without diagnosis Z71.1 [place] [address] [address] 16 May, 2015 Neuroforaminal stenosis of spine M99.89 ; Neck pain M54.2 ; Hypokalemia E87.6 ; Essential hypertension I10 and Mixed hyperlipidemia E78.2 [place] [address] [address] 11 May, 2015 [facility] [address] [facility] [id number] [address] [place] [address] 08 May, 2015 High risk sexual behavior Z7 2.51 ; STD exposure Z20.2 and Concern about STD in female without diagnosis Z71.1 [facility] [address] [address] 05 May, 2015 [facility] [address] [address] Apr, Neuroforaminal stenosis of spine M99.89 ; Mixed hyperlipidemia E78.2 ; Essential hypertension I10 and Hypokalemia E87.6 [place] [address] [address] Mar, [place] [address] [address] Mar, Hypokalemia E87.6 [place] [address] [address] Mar, Neuroforaminal stenosis of spine M99.89 ; Mixed hyperlipidemia E78.2 ; Neck pain M54.2 ; Essential hypertension I10 ; Abnormal fasting glucose R73.09 ; Hypokalemia E87.6 and Constipation K59.00 [place] [address] [address] Feb, Neuroforaminal stenosis of spine M99.89 ; Mixed hyperlipidemia E78.2 ; Neck pain M54.2 ; Essential hypertension I10 ; Abnormal fasting glucose R73.09 ; Hypokalemia E87.6 and Constipation K59.00 [place] [address] [address] Feb, Elevated fasting blood sugar R73.01 [place] [address] [address] Feb, Elevated fasting blood sugar R73.01 [place] [address] [address] Feb, Hair loss L65.9 [place] [address] [address] Feb, Sinusitis J32.9 ; Essential hypertension I10 and Hair loss L65.9 [place] [address] [address] Jan, [place] [address] [address] Jan, Essential hypertension I10 ; Neuroforami nal stenosis of spine M99.89 ; Neck pain M54.2 ; Mixed hyperlipidemia E78.2 and Anxiety F41.9 [place] [address] [address] Jan, [place] [address] [address] Jan, Mixed hyperlipidemia E78.2 ; Essential ( primary) hypertension I10 ; Strain of muscle, fascia and tendon at neck level, subsequent encounter S16.1XXD and Tension-type headache, unspecified, not intractable G44.209 [place] [address] [address] Dec, Lumbar back pain 724.2 and Neuroforamina l stenosis of spine 724.00 [place] [address] [address] Nov, [place] [address] [address] Nov, Lumbar back pain 724.2 and Neuroforamina l stenosis of spine 724.00 [place] [address] [address] Nov, Edema 782.3 ; Lumbar back pain 724.2 ; E ssential hypertension, benign 401.1 ; Hyperlipemia 272.4 ; Neuroforaminal stenosis of spine 724.00 and Post- concussion headache 339.20 [place] [address] [address] Nov, [place] [id number] [place] [address] Nov, [facility] [address] [address] Oct, Essential hypertension, benign 401.1 [place] [address] [address] Oct, Edema 782.3 ; Lumbar back pain 724.2 ; E ssential hypertension, benign 401.1 ; Hyperlipemia 272.4 ; Neuroforaminal stenosis of spine 724.00 and Post- concussion headache 339.20 [place] [address] [address] Oct, [place] [address] [address] Oct, Edema 782.[address] [address] Oct, Lumbar back pain 724.2 [place] [address] [address] Oct, Cervicalgia 723.1 ; Lumbar back pain 724 .2 and High risk medication use V58.69 [place] [address] [address] Sep, [place] [address] [address] Sep, Lumbar strain 847.2 [place] [address] [address] August, Edema 782.3 and Eustachian tube dysfunct ion 381.81 [place] [address] [address] August, [address] [address] August, Eustachian tube dysfunction 381.81 [place] [address] [address] Jul, Otalgia 388.70 and Otitis media 382.9 [facility] [id number] [place] [address] Jul, [facility] [id number] [place] [address] Jul, [facility] [id number] [place] [address] 28 Jul, 2014 [facility] [id number] [place] [address] 14 Jul, 2014 [facility] [id number] [place] [address] Jul, [facility] [id number] [place] [address] Jun, [facility] [id number] [place] [address] Jun, [facility] [id number] [place] [address] 16 Jun, 2014 [facility] [id number] [place] [address] May, [facility] [id number] [place] [address] May, [facility] [id number] [place] [address] May, [facility] [id number] [place] [address] May, 2014 [facility] [id number] [place] [address] May, [facility] [id number] [place] [address] May, 2014 [facility] [id number] [place] [address] 09 May, 2014 [facility] [id number] [place] [address] May, [facility] [address] [facility] [id number] [facility] [place] [address] May, [facility] [address] [facility] [id number] [facility] [place] [address] May, [facility] [address] [id number] [place] [address] Apr, [facility] [address] [facility] [id number] [facility] [place] [address] Apr, [facility] [address] [facility] [id number] [facility] [place] [address] Apr, [facility] [address] [id number] [place] [address] Apr, [facility] [address] [id number] [place] [address] Apr, [facility] [address] [id number] [place] [address] Apr, [facility] [address] [id number] [place] [address] Apr, [facility] [address] [id number] [place] [address] Apr, [facility] [address] [id number] [place] [address] Apr, [facility] [address] [id number] [place] [address] Apr, [facility] [address] [id number] [place] [address] Apr, [facility] [address] [id number] [place] [address] Apr, [facility] [address] [id number] [place] [address] Apr, [facility] [address] [id number] [place] [address] Apr, [facility] [address] [id number] [place] [address] Apr, [facility] [address] [id number] [place] [address] Mar, [facility] [address] [id number] [place] [address] Mar, [facility] [address] [id number] [place] [address] Mar, [facility] [address] [id number] [place] [address] Mar, [facility] [address] [id number] [place] [address] Feb, [facility] [address] [id number] [place] [address] Feb, [facility] [address] [id number] [place] [address] Feb, [facility] [address] [id number] [place] [address] Feb, [facility] [address] [id number] [place] [address] Jan, [facility] [address] [id number] [place] [address] Jan, [facility] [address] [id number] [place] [address] Jan, [facility] [address] [id number] [place] [address] Jan, [facility] [address] [id number] [place] [address] Jan, [facility] [id number] [place] [address] Jan, [facility] [address] [id number] [place] [address] Jan, [facility] [address] [id number] [place] [address] Jan, [facility] [address] [facility] [id number] [place] [address] Dec, 2013 [facility] [address] [id number] [place] [address] Dec, 2013 [facility] [address] [id number] [place] [address] Dec, [facility] [address] [id number] [place] [address] Dec, 2013 [facility] [address] [id number] [place] [address] Oct, [facility] [address] [id number] [place] [address] Oct, [facility] [address] [id number] [place] [address] Oct, 2013 [facility] [address] [id number] [place] [address] Oct, 2013 [facility] [address] [id number] [place] [address] Oct, [facility] [address] [id number] [place] [address] Oct, 2013 [facility] [address] [id number] [place] [address] Oct, 2013 [facility] [address] [id number] [place] [address] Oct, 2013 [facility] [address] [id number] [place] [address] Sep, [facility] [address] [id number] [place] [address] Sep, [facility] [address] [id number] [place] [address] Sep, [facility] [address] [id number] [place] [address] Sep, [facility] [address] [id number] [place] [address] Sep, [facility] [address] [id number] [place] [address] Sep, [facility] [address] [facility] [id number] [facility] [place] [address] Sep, [facility] [address] [facility] [id number] [place] [address] Sep, [facility] [address] [id number] [place] [address] Sep, [facility] [address] [id number] [facility] [place] [address] Sep, [facility] [address] [id number] [place] [address] August, [facility] [address] [id number] [place] [address] August, [facility] [address] [id number] [place] [address] August, [facility] [address] [facility] [id number] [place] [address] August, [facility] [address] [id number] [place] [address] August, [facility] [address] [id number] [place] [address] August, [facility] [address] [id number] [place] [address] August, [facility] [address] [facility] [id number] [place] [address] August, [facility] [address] [id number] [place] [address] August, [facility] [address] [id number] [place] [address] August, [facility] [address] [id number] [place] [address] August, [facility] [address] [id number] [place] [address] August, [facility] [address] [id number] [place] [address] Jul, [facility] [address] [id number] [place] [address] Jul, [facility] [address] [id number] [place] [address] Jul, [facility] [address] [id number] [place] [address] Jul, [facility] [address] [id number] [place] [address] Jul, [facility] [address] [id number] [place] [address] Jul, [facility] [address] [id number] [place] [address] Jun, [facility] [address] [id number] [place] [address] Jun, [facility] [address] [id number] [place] [address] May, [facility] [address] [id number] [place] [address] May, [facility] [address] [id number] [place] [address] Apr, [facility] [address] [id number] [place] [address] Apr, [facility] [address] [id number] [place] [address] Apr, [facility] [address] [id number] [place] [address] Apr, [facility] [address] [id number] [place] [address] Apr, [facility] [address] [id number] [place] [address] Apr, [facility] [address] [id number] [place] [address] Apr, [facility] [address] [id number] [place] [address] Apr, [facility] [address] [id number] [place] [address] Apr, [facility] [address] [id number] [place] [address] Apr, [facility] [address] [id number] [place] [address] Apr, [facility] [address] [id number] [place] [address] Apr, [facility] [address] [id number] [place] [address] Apr, [facility] [id number] [place] [address] Mar, [facility] [address] [id number] [place] [address] Mar, [facility] [address] [id number] [place] [address] Mar, [facility] [address] [id number] [place] [address] Mar, [facility] [address] [id number] [place] [address] Feb, [facility] [address] [id number] [place] [address] Feb, [facility] [address] [id number] [place] [address] Feb, [facility] [address] [id number] [place] [address] Feb, [facility] [address] [id number] [place] [address] Jan, [facility] [address] [id number] [place] [address] 14 Jan, 2013 [facility] [address] [facility] [id number] [place] [address] 11 Jan, 2013 [facility] [address] [facility] [id number] [place] [address] 11 Jan, 2013 [facility] [address] [id number] [place] [address] 10 Jan, 2013 [facility] [address] [id number] [place] [address] 10 Jan, 2013 [facility] [address] [facility] [id number] [place] [address] Jan, [facility] [address] [id number] [place] [address] Jan, [facility] [address] [id number] [place] [address] Jan, [facility] [address] [id number] [place] [address] 26 Dec, 2012 [facility] [address] [id number] [place] [address] 16 Dec, 2012 [facility] [address] [id number] [place] [address] 16 Dec, 2012 [facility] [address] [id number] [place] [address] 13 Dec, 2012 [facility] [address] [id number] [place] [address] 17 Nov, 2012 [facility] [address] [id number] [place] [address] 17 Nov, 2012 [facility] [address] [id number] [place] [address] 14 Nov, 2012 [facility] [address] [id number] [place] [address] 05 Nov, 2012 [facility] [address] [id number] [place] [address] 18 Oct, 2012 [facility] [address] [id number] [place] [address] Sep, [facility] [address] [id number] [place] [address] August, [facility] [address] [id number] [place] [address] August, [facility] [address] [id number] [place] [address] August, [facility] [address] [id number] [place] [address] August, [facility] [address] [id number] [place] [address] August, [facility] [address] [id number] [place] [address] August, [facility] [address] [id number] [place] [address] August, [facility] [address] [id number] [place] [address] August, [facility] [address] [id number] [place] [address] August, [facility] [address] [id number] [place] [address] August, [facility] [address] [id number] [place] [address] August, [facility] [address] [id number] [place] [address] August, [facility] [address] [id number] [place] [address] Jul, [facility] [address] [id number] [place] [address] Jul, [facility] [address] [id number] [place] [address] 18 Jul, 2012 [facility] [address] [id number] [place] [address] 15 Jul, 2012 [facility] [address] [id number] [place] [address] 09 Jul, 2012 [facility] [address] [id number] [place] [address] 08 Jul, 2012 [facility] [address] [id number] [place] [address] Jul, [facility] [address] [id number] [place] [address] Jul, [facility] [address] [id number] [place] [address] Jul, [facility] [address] [id number] [place] [address] Jul, [facility] [address] [id number] [place] [address] Jul, [facility] [address] [id number] [place] [address] Jun, [facility] [address] [id number] [place] [address] Jun, [facility] [address] [id number] [place] [address] Jun, [facility] [address] [id number] [place] [address] Jun, [facility] [address] [id number] [place] [address] May, [facility] [address] [id number] [place] [address] 14 May, 2012 [facility] [address] [id number] [place] [address] 05 May, 2012 [facility] [address] [id number] [place] [address] 04 May, 2012 [facility] [address] [id number] [place] [address] 04 May, 2012 [facility] [address] [id number] [place] [address] May, [facility] [address] [id number] [place] [address] Apr, [facility] [address] [id number] [place] [address] Apr, [facility] [address] [id number] [place] [address] Apr, [facility] [address] [id number] [place] [address] Apr, [facility] [address] [id number] [place] [address] Mar, [facility] [address] [id number] [place] [address] Mar, [facility] [address] [id number] [place] [address] Mar, [facility] [address] [id number] [place] [address] Mar, [facility] [address] [id number] [place] [address] Mar, [facility] [address] [id number] [place] [address] Mar, [facility] [address] [id number] [place] [address] Mar, [facility] [address] [id number] [place] [address] Feb, [facility] [address] [id number] [place] [address] Feb, [facility] [id number] [place] [address] Feb, [facility] [address] [id number] [place] [address] Feb, [facility] [address] [id number] [place] [address] Jan, [facility] [address] [id number] [place] [address] Jan, [facility] [address] [id number] [place] [address] Jan, [facility] [address] [id number] [place] [address] Jan, [facility] [address] [id number] [place] [address] Jan, [facility] [address] [id number] [place] [address] Jan, [facility] [address] [id number] [place] [address] Dec, [facility] [address] [id number] [place] [address] Dec, [facility] [address] [id number] [place] [address] Nov, [facility] [address] [id number] [place] [address] Sep, [facility] [address] [id number] [place] [address] August, [facility] [address] [id number] [place] [address] August, [facility] [address] [id number] [place] [address] August, [facility] [address] [id number] [place] [address] August, [facility] [address] [id number] [place] [address] August, [facility] [address] [id number] [place] [address] Jun, [facility] [address] [id number] [place] [address] Jun, [facility] [address] [id number] [place] [address] Apr, [facility] [address] [id number] [place] [address] Apr, [facility] [address] [id number] [place] [address] Mar, [facility] [address] [id number] [place] [address] Feb, [facility] [address] [id number] [place] [address] Feb, [facility] [id number] [place] [address] 14 Feb, 2011 [facility] [id number] [place] [address] 17 Jan, 2011 [facility] [id number] [place] [address] 15 Jan, 2011 [facility] [id number] [place] [address] 15 Jan, 2011 [facility] [id number] [place] [address] 14 Jan, 2011 [facility] [id number] [place] [address] 15 May, 2010 [facility] [id number] [place] [address] Mar, [facility] [id number] [place] [address] Oct, [facility] [id number] [place] [address] Sep, [facility] [id number] [place] [address] Mar, [facility] [id number] [place] [address] Jan, [facility] [id number] [place] [address] Jan, [facility] [id number] [place] [address] May, IMMUNIZATIONS No Known Immunizations SOCIAL HISTORY [...]
--- OUTSIDE RECORDS SUMMARY | 2019-11-23 06:19 | XMS REPORT ---
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 Name Role Phone JOAN Valerio Unavailable PROBLEMS Type Condition ICD9-CM Code PYD40-[place] Code Onset Dates Condition S tatus SNOMED Code Problem Anxiety F41.9 Active 29924372 Problem Neck pain M54.2 Active 91590347 Problem Neuroforaminal stenosis of spine M99.89 Active 074066885671 Problem Hematuria, unspecified type R31.9 Ac tive 89227387 Problem Seasonal allergies J30.2 Active 4 72842435 Problem Abnormal glucose R73.09 Active 102 924609 Problem Rhinosinusitis J32.9 Active 47643 4004 Problem Abnormal renal ultrasound R93.429 Acti ve [id number] Problem Essential hypertension I10 Active 68717430 Problem Mixed hyperlipidemia E78.2 Active 78276724 Problem Hypokalemia E87.6 Active 31399388 Problem Chronic pain due to trauma G89.21 Act juanis [id number] ALLERGIES No Information ENCOUNTERS Encounter Location Date Diagnosis [place] [address] [facility] [id number] [address] [place] [id number] Jul, [facility] [address] [facility] [id number] [address] [place] [phone] Jun, Hypokalemia E87.6 [facility] [address] [facility] [id number] [address] [place] [id number] Jun, [facility] [address] [facility] [id number] [address] [place] [phone] Jun, Neuroforaminal stenosis of s pine M99.89 [facility] [address] [facility] [id number] [address] [place] [phone] Jun, Lateral epicondylitis, left elbow M77.12 and Medial epicondylitis, left elbow M77.02 [place] [address] [facility] [id number] [address] [place] [id number] 16 Jun, 2019 Foraminal stenosis of lumbar region M48.061 ; Segmental dysfunction of thoracic region M99.02 ; Segmental dysfunction of lumbar region M99.03 and Segmental dysfunction of sacral region M99.04 [place] [address] [id number] [address] [place] [phone] May, Left elbow pain M25.522 [place] [address] [id number] [address] [place] [phone] May, [place] [address] [facility] [id number] [address] [place] [phone] May, Left elbow pain M25.522 [place] [address] [facility] [id number] [address] [place] [phone] May, Neuroforaminal stenosis of s pine M99.89 [place] [address] [facility] [id number] [address] [place] [phone] May, Rhinosinusitis J32.9 ; Left elbow pain M25.522 and Neck pain M54.2 [place] [address] [place] [id number] [address] [place] [id number] 14 May, 2019 Lateral epicondylitis of lef t elbow M77.12 [place] [address] [facility] [id number] [address] [place] [phone] Apr, Neuroforaminal stenosis of s pine M99.89 [place] [address] [facility] [id number] [address] [place] [phone] Apr, Essential hypertension I10 a nd Mixed hyperlipidemia E78.2 [place] [address] [id number] [address] [place] [id number] Mar, Neuroforaminal stenosis of s pine M99.89 [place] [address] [id number] [address] [place] [id number] Mar, Epicondylitis, lateral, left M77.12 [facility] [address] [facility] [id number] [address] [place] [phone] Mar, [facility] [address] [facility] [id number] [address] [place] [phone] Mar, Neuroforaminal stenosis of s pine M99.89 [facility] [address] [id number] [address] [place] [phone] Feb, Neuroforaminal stenosis of s pine M99.89 ; Essential hypertension I10 ; Mixed hyperlipidemia E78.2 ; Encounter for immunization Z23 and Seasonal allergies J30.2 [facility] [address] [facility] [id number] [address] [place] [phone] Jan, Neuroforaminal stenosis of s pine M99.89 [facility] [address] [facility] [id number] [address] [place] [id number] Dec, Neuroforaminal stenosis of s pine M99.89 [facility] [address] [facility] [id number] [address] [place] [phone] Dec, Neuroforaminal stenosis of s pine M99.89 [facility] [address] [facility] [id number] [address] [place] [id number] Nov, [facility] [address] [id number] [address] [place] [phone] Nov, Neuroforaminal stenosis of s pine M99.89 [facility] [address] [facility] [id number] [address] [place] [phone] Nov, Acute non-recurrent maxillar y sinusitis J01.00 [facility] [address] [facility] [id number] [address] [place] [phone] Oct, Hypokalemia E87.6 [facility] [address] [facility] [id number] [address] [place] [id number] Oct, Wasp sting, undetermined int ent, initial encounter T63.464A and Cellulitis of left lower extremity L03.116 [place] [address] [id number] [address] [place] [phone] Oct, Neuroforaminal stenosis of s pine M99.89 [place] [address] [id number] [address] [place] [phone] Sep, [place] [address] [id number] [address] [place] [phone] Sep, [place] [address] [id number] [address] [place] [phone] 18 Sep, 2018 Routine screening for STI (s exually transmitted infection) Z11.3 [place] [address] [id number] [address] [place] [phone] 14 Sep, 2018 Routine screening for STI (s exually transmitted infection) Z11.3 ; Well woman exam with routine gynecological exam Z01.419 and Breast cancer screening Z12.39 [place] [address] [id number] [address] [place] [phone] Sep, Neuroforaminal stenosis of s pine M99.89 [place] [address] [id number] [address] [place] [id number] August, Neuroforaminal stenosis of s pine M99.89 [place] [address] [id number] [address] [place] [phone] August, Neuroforaminal stenosis of s pine M99.89 ; Chronic pain due to trauma G89.21 and Mixed hyperlipidemia E78.2 [place] [address] [id number] [address] [place] [id number] 16 Jul, 2018 Viral upper respiratory illn ess J06.9 and Acute non-recurrent frontal sinusitis J01.10 [place] [address] [id number] [address] [place] [phone] 15 Jul, 2018 Congestion of nasal sinus R0 9.81 [facility] [address] [id number] [address] [place] [phone] Jul, Neuroforaminal stenosis of s pine M99.89 and Essential hypertension I10 [facility] [address] [id number] [address] [place] [phone] May, Neuroforaminal stenosis of s pine M99.89 [facility] [address] [id number] [address] [place] [phone] May, [facility] [address] [id number] [address] [place] [id number] May, Congestion of nasal sinus R0 9.81 [facility] [address] [id number] [address] [place] [phone] May, [facility] [address] [id number] [address] [place] [id number] Apr, Neuroforaminal stenosis of s pine M99.89 [facility] [address] [id number] [address] [place] [phone] Apr, Neuroforaminal stenosis of s pine M99.89 and Chronic pain due to trauma G89.21 [facility] [address] [id number] [address] [place] [phone] Mar, UTI (urinary tract infection ) N39.0 [facility] [address] [id number] [address] [place] [id number] Mar, Vertigo R42 [facility] [address] [id number] [address] [place] [phone] Mar, Neuroforaminal stenosis of s pine M99.89 [facility] [address] [id number] [address] [place] [phone] Feb, Extensor tendon disruption M 67.89 [facility] [address] [id number] [address] [place] [id number] Feb, Neuroforaminal stenosis of s pine M99.89 and High risk medication use Z79.899 [facility] [address] [facility] [id number] [address] [place] [phone] Jan, Hypokalemia E87.6 [place] [address] [facility] [id number] [address] [place] [phone] Jan, Flank pain R10.9 and Acute r ight-sided low back pain without sciatica M54.5 [place] [address] [facility] [id number] [address] [place] [phone] Jan, Hypokalemia E87.6 [place] [address] [facility] [id number] [address] [place] [phone] Jan, [place] [address] [facility] [id number] [place] [phone] Jan, URI, acute J06.9 [place] [address] [place] [id number] [address] [place] [phone] Jan, Neuroforaminal stenosis of s jose M99.89 [place] [address] [place] [id number] [address] [place] [phone] 13 Dec, 2017 Lateral epicondylitis, right elbow M77.11 [place] [address] [place] [id number] [address] [place] [phone] 11 Dec, 2017 Allergic rhinitis due to monica rosalina, unspecified seasonality J30.1 and Allergic conjunctivitis of both eyes H10.13 [place] [address] [place] [id number] [address] [place] [phone] 10 Dec, 2017 Neuroforaminal stenosis of s jose M99.89 [place] [address] [place] [id number] [address] [place] [phone] 06 Dec, 2017 Mixed hyperlipidemia E78.2 [place] [address] [facility] [id number] [address] [place] [phone] 05 Dec, 2017 Abnormal glucose R73.09 ; Ab normal renal ultrasound R93.429 ; Dysuria R30.0 ; Cystitis without hematuria N30.90 ; Hypokalemia E87.6 ; Mixed hyperlipidemia E78.2 and Hematuria, unspecified type R31.9 [place] [address] [facility] [id number] [address] [place] [phone] Nov, Hypokalemia E87.6 ; Mixed hy perlipidemia E78.2 and Hematuria, unspecified type R31.9 [place] [address] [place] [id number] [place] [phone] Nov, [place] [address] [place] [id number] [place] [phone] Nov, Hypokalemia E87.6 [place] [address] [place] [id number] [place] [phone] Nov, [place] [address] [phone] Nov, Abnormal renal ultrasound R9 3.429 [place] [address] [place] [id number] [address] [place] [phone] Nov, Abnormal renal ultrasound R9 3.429 [place] [address] [address] Nov, Hematuria, unspecified type R31.9 and 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 [place] [address] [address] Nov, Dysuria R30.0 [place] [address] [place] [id number] [address] [place] [phone] Oct, Lateral epicondylitis, right elbow M77.11 [place] [address] [place] [id number] [place] [phone] Oct, Neuroforaminal stenosis of s pine M99.89 ; Visit for TB skin test Z11.1 and Essential hypertension I10 [place] [address] [phone] Oct, [place] [address] [id number] [address] [place] [phone] 12 Oct, 2017 Neuroforaminal stenosis of s pine M99.89 [place] [address] [id number] [address] [place] [phone] 10 Oct, 2017 Visit for TB skin test Z11.1 [place] [address] [id number] [address] [place] [id number] 05 Oct, 2017 Cystitis without hematuria N 30.90 [place] [address] [id number] [address] [place] [phone] 28 Sep, 2017 Screening breast examination Z12.39 [place] [address] [id number] [address] [place] [id number] 26 Sep, 2017 Dysuria R30.0 and Cystitis w ithout hematuria N30.90 [place] [address] [id number] [address] [place] [phone] 14 Sep, 2017 Essential hypertension I10 a nd 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 [place] [address] [id number] [address] [place] [id number] 04 Sep, 2017 Abnormal glucose R73.09 [place] [address] [facility] [id number] [address] [place] [phone] August, Lateral epicondylitis, right elbow M77.11 [place] [address] [id number] [address] [place] [phone] August, Screen for STD (sexually tra nsmitted disease) Z11.3 [place] [address] [id number] [address] [place] [phone] August, Neuroforaminal stenosis of s pine M99.89 ; Mixed hyperlipidemia E78.2 ; Elevated fasting glucose R73.01 ; Screening mammogram, encounter for Z12.31 and Encounter for well woman exam without gynecological exam Z00.00 [place] [address] [id number] [address] [place] [phone] August, Neuroforaminal stenosis of s jose M99.89 [facility] [address] [id number] [address] [place] [phone] August, Essential hypertension I10 ; Hypokalemia E87.6 and Mixed hyperlipidemia E78.2 [facility] [address] [id number] [address] [place] [id number] Jul, [facility] [address] [id number] [address] [place] [id number] Jul, Neuroforaminal stenosis of s jose M99.89 [facility] [address] [id number] [address] [place] [id number] Jul, Lateral epicondylitis, right elbow M77.11 [facility] [address] [id number] [address] [place] [phone] Jul, [facility] [address] [id number] [address] [place] [phone] Jun, High ankle sprain of right l ower extremity, initial encounter S93.431A [facility] [address] [id number] [address] [place] [phone] Jun, Essential hypertension I10 [facility] [address] [id number] [address] [place] [phone] Jun, [facility] [address] [id number] [address] [place] [id number] Jun, [facility] [address] [id number] [address] [place] [phone] Jun, Neuroforaminal stenosis of s jose M99.89 [facility] [address] [id number] [address] [place] [phone] Jun, Pain of right upper extremit y M79.601 and Essential hypertension I10 [facility] [address] [id number] [address] [place] [phone] Jun, [place] [id number] [place] [id number] 07 Jun, 2017 Dysuria R30.0 ; Acute cystit is with hematuria N30.01 and Screen for STD (sexually transmitted disease) Z11.3 [place] [id number] [place] [phone] May, Chronic pain due to trauma G 89.21 [place] [id number] [place] [address] May, Essential hypertension I10 [address] [address] May, Neuroforaminal stenosis of s jose M99.[address] [address] Apr, Allergic reaction, initial e ncounter T78.40XA [place] [address] [address] Apr, Low back pain, unspecified b ack pain laterality, unspecified chronicity, with sciatica presence unspecified M54.5 ; Acute cystitis with hematuria N30.01 ; 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 [address] [id number] [address] [place] [phone] Feb, UTI (urinary tract infection ) N39.0 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 [address] [id number] [address] [place] [phone] Feb, [facility] [address] [id number] [address] [place] [phone] Jan, Neuroforaminal stenosis of s pine M99.89 [facility] [address] [id number] [address] [place] [phone] Dec, Neuroforaminal stenosis of s pine M99.89 [facility] [address] [id number] [address] [place] [phone] Dec, Acute seasonal allergic rhin itis due to pollen J30.1 [facility] [address] [id number] [address] [place] [phone] Dec, [facility] [address] [id number] [address] [place] [id number] Dec, Acute seasonal allergic rhin itis, unspecified trigger J30.2 ; Allergic conjunctivitis of both eyes H10.13 and Dysfunction of both eustachian tubes H69.83 [facility] [address] [id number] [address] [place] [phone] Dec, [facility] [address] [id number] [address] [place] [id number] 06 Dec, [address] 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 [address] [id number] [address] [place] [id number] Nov, Neuroforaminal stenosis of s pine M99.89 ; Essential hypertension I10 ; Mixed hyperlipidemia E78.2 ; Hypokalemia E87.6 ; Neck pain M54.[address] [facility] [address] [id number] [address] [place] [phone] Oct, Neuroforaminal stenosis of s pine M99.89 [place] [address] [id number] [address] [place] [phone] Sep, Neuroforaminal stenosis of s pine M99.89 [place] [address] [id number] [address] [place] [id number] Sep, [place] [address] [id number] [address] [place] [id number] August, [place] [address] [id number] [address] [place] [phone] August, Neck pain M54.2 and Neurofor aminal stenosis of spine M99.89 [place] [address] [id number] [address] [place] [phone] August, Routine gynecological examin ation Z01.419 and Screening breast examination Z12.39 [facility] [address] [id number] [address] [place] [id number] Jul, [facility] [address] [id number] [address] [place] [id number] Jul, [place] [address] [facility] [id number] [address] [place] [id number] Jul, Neuroforaminal stenosis of s pine M99.89 [facility] [address] [id number] [address] [place] [id number] Jul, [facility] [address] [id number] [address] [place] [id number] Jul, Neuroforaminal stenosis of l umbar 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 [facility] [address] [id number] [address] [place] [id number] Jul, [facility] [address] [id number] [address] [place] [phone] Jul, [facility] [address] [id number] [address] [place] [phone] Jun, Neuroforaminal stenosis of s jose M99.89 [place] [address] [facility] [id number] [address] [place] [phone] Jun, Uterine leiomyoma, unspecifi ed location D25.9 and Allergic reaction caused by a drug, initial encounter T78.40XA [place] [address] [facility] [id number] [address] [place] [phone] Jun, [place] [address] [id number] [address] [place] [id number] May, UTI symptoms R39.9 and Pain of right sacroiliac joint M53.3 [facility] [address] [id number] [address] [place] [id number] May, Neuroforaminal stenosis of s jose M99.89 [place] [address] [facility] [id number] [address] [place] [phone] May, [place] [address] [facility] [id number] [address] [place] [id number] May, Acute mucoid otitis media of left ear H65.112 and Acute non- recurrent maxillary sinusitis J01.00 [facility] [address] [facility] [id number] [address] [place] [phone] May, Acute bacterial conjunctivit is of both eyes H10.33 ; Left arm pain M79.602 and Hypokalemia E87.6 [place] [address] [id number] [address] [place] [id number] Apr, [place] [address] [facility] [id number] [address] [place] [phone] Apr, Neuroforaminal stenosis of s pine M99.89 ; Neck pain M54.2 ; Chronic pain due to trauma G89.21 ; Mixed hyperlipidemia E78.2 ; Essential hypertension I10 and Hypokalemia E87.6 [place] [address] [id number] [address] [place] [id number] Mar, Oral candidiasis B37.0 ; Nathaniel roforaminal stenosis of spine M99.89 ; Neck pain M54.2 and Chronic pain due to trauma G89.21 [place] [address] [facility] [id number] [address] [place] [phone] Feb, [place] [address] [place] [id number] [address] [place] [phone] Feb, [place] [address] [id number] [address] [place] [phone] Feb, UTI (urinary tract infection ) N39.0 [place] [address] [address] [facility] [id number] [address] [place] [id number] Feb, Dysuria R30.0 [place] [address] [address] [facility] [id number] [address] [place] [phone] Feb, Dysuria R30.0 [place] [address] [address] [facility] [id number] [address] [place] [id number] 02 Feb, 2016 Neuroforaminal stenosis of s pine M99.89 ; Neck pain M54.2 ; Essential hypertension I10 ; Chronic pain due to trauma G89.21 ; Dysuria R30.0 ; Abnormal MRI, shoulder R93.8 and Acute cystitis without hematuria N30.00 [place] [address] [facility] [id number] [address] [place] [phone] Jan, [place] [address] [id number] [address] [place] [id number] Jan, [facility] [address] [id number] [address] [place] [phone] Jan, [facility] [address] [id number] [address] [place] [phone] Jan, Abnormal MRI R93.8 [facility] [address] [id number] [address] [place] [phone] 29 Dec, 2015 [facility] [address] [id number] [address] [place] [id number] 15 Dec, 2015 Acute pain of left shoulder M25.512 [facility] [address] [id number] [address] [place] [phone] [address], [address] [facility] [address] [id number] [address] [place] [id number] 08 Dec, 2015 [facility] [address] [id number] [address] [place] [id number] 07 Dec, 2015 Acute pain of left shoulder M25.512 [facility] [address] [id number] [address] [place] [id number] Nov, ST. [facility] [address] [id number] [address] [place] [id number] 16 Nov, 2015 Neuroforaminal stenosis of s pine M99.89 ; Neck pain M54.2 ; Abnormal mammogram R92.8 ; Essential hypertension I10 and Chronic pain due to trauma G89.21 [facility] [address] [id number] [address] [place] [phone] Nov, [facility] [address] [id number] [address] [place] [id number] 28 Oct, 2015 Acute stress disorder F43.0 [facility] [address] [id number] [address] [place] [phone] Oct, [facility] [address] [id number] [address] [place] [id number] Oct, [facility] [address] [id number] [address] [place] [phone] Oct, [facility] [address] [id number] [address] [place] [phone] Sep, [facility] [address] [id number] [address] [place] [phone] August, [facility] [address] [id number] [address] [place] [phone] Jul, Neuroforaminal stenosis of s pine M99.89 ; Neck pain M54.2 ; Abnormal mammogram R92.8 and Essential hypertension I10 [facility] [address] [id number] [address] [place] [phone] Jul, [facility] [address] [id number] [address] [place] [phone] Jul, [facility] [address] [id number] [address] [place] [phone] Jul, Abnormal mammogram R92.8 [facility] [address] [id number] [address] [place] [phone] Jul, [facility] [address] [id number] [address] [place] [phone] Jul, UTI (urinary tract infection ) N39.0 [facility] [address] [id number] [address] [place] [phone] Jul, Dysuria R30.0 [facility] [address] [id number] [address] [place] [phone] Jun, [facility] [address] [id number] [address] [place] [phone] Jun, [facility] [address] [id number] [address] [place] [phone] Jun, Hypokalemia E87.6 and Hematu martina R31.9 [place] [address] [address] Jun, Hypokalemia E87.6 [place] [address] [address] Jun, [place] [address] [address] Jun, Hypokalemia E87.6 [place] [address] [address] Jun, Hypokalemia E87.6 [place] [address] [address] Jun, Neuroforaminal stenosis of s pine M99.89 ; Hypokalemia E87.6 ; Neck pain M54.2 ; Essential hypertension I10 ; Mixed hyperlipidemia E78.2 and Screening breast examination Z12.[address] [address] Jun, Dysuria R30.0 ; UTI (urinary tract infection) N39.0 and Hematuria R31.[address] [address] May, [address] [address] May, High risk sexual behavior Z7 2.51 ; Hypokalemia E87.6 ; Neuroforaminal stenosis of spine M99.89 ; Neck pain M54.2 ; Essential hypertension I10 ; Mixed hyperlipidemia E78.2 ; STD exposure Z20.2 and Concern about STD in female without diagnosis Z71.[address] [address] 16 May, 2015 Neuroforaminal stenosis of s pine M99.89 ; Neck pain M54.2 ; Hypokalemia E87.6 ; Essential hypertension I10 and Mixed hyperlipidemia E78.2 [place] [id number] [place] [phone] 11 May, 2015 [facility] [address] [address] 08 May, 2015 High risk sexual behavior Z7 2.51 ; STD exposure Z20.2 and Concern about STD in female without diagnosis Z71.[address] [address] May, [place] [address] [address] Apr, Neuroforaminal stenosis of s pine M99.89 ; Mixed hyperlipidemia E78.2 ; Essential hypertension I10 and Hypokalemia E87.6 [place] [address] [address] Mar, [address] [address] Mar, Hypokalemia E87.[address] [address] Mar, Neuroforaminal stenosis of s pine M99.89 ; Mixed hyperlipidemia E78.2 ; Neck pain M54.2 ; Essential hypertension I10 ; Abnormal fasting glucose R73.09 ; Hypokalemia E87.6 and Constipation K59.[address] [address] Feb, Neuroforaminal stenosis of s pine M99.89 ; Mixed hyperlipidemia E78.2 ; Neck pain M54.2 ; Essential hypertension I10 ; Abnormal fasting glucose R73.09 ; Hypokalemia E87.6 and Constipation K59.[address] [address] Feb, Elevated fasting blood sugar R73.[address] [address] Feb, Elevated fasting blood sugar R73.01 [place] [address] [facility] [id number] [address] [place] [phone] Feb, Hair loss L65.9 [place] [address] [address] [facility] [id number] [address] [place] [phone] Feb, Sinusitis J32.9 ; Essential hypertension I10 and Hair loss L65.9 [place] [address] [address] [place] [id number] [address] [place] [phone] Jan, [place] [address] [address] [facility] [id number] [address] [place] [phone] Jan, Essential hypertension I10 ; Neuroforaminal stenosis of spine M99.89 ; Neck pain M54.2 ; Mixed hyperlipidemia E78.2 and Anxiety F41.9 [place] [address] [address] [place] [id number] [address] [place] [phone] Jan, [place] [address] [address] Jan, Mixed hyperlipidemia E78.2 ; Essential (primary) hypertension I10 ; Strain of muscle, fascia and tendon at neck level, subsequent encounter S16.1XXD and Tension-type headache, unspecified, not intractable G44.209 [place] [address] [address] [facility] [id number] [address] [place] [phone] Dec, Lumbar back pain 724.2 and N euroforaminal stenosis of spine 724.00 [place] [address] [address] [facility] [id number] [address] [place] [id number] Nov, [place] [address] [address] [facility] [id number] [address] [place] [phone] Nov, Lumbar back pain 724.2 and N euroforaminal stenosis of spine 724.00 [place] [address] [address] [facility] [id number] [address] [place] [phone] Nov, Edema 782.3 ; Lumbar back pa in 724.2 ; Essential hypertension, benign 401.1 ; Hyperlipemia 272.4 ; Neuroforaminal stenosis of spine 724.00 and Post-concussion headache 339.20 [facility] [address] [id number] [address] [place] [phone] Nov, [facility] [address] [id number] [address] [place] [phone] Nov, [facility] [address] [id number] [address] [place] [phone] Oct, Essential hypertension, [place] gn 401.1 [facility] [address] [id number] [address] [place] [phone] Oct, Edema 782.3 ; Lumbar back pa in 724.2 ; Essential hypertension, benign 401.1 ; Hyperlipemia 272.4 ; Neuroforaminal stenosis of spine 724.00 and Post-concussion headache 339.20 [place] [address] [address] [facility] [id number] [address] [place] [phone] Oct, [facility] [address] [id number] [address] [place] [phone] Oct, Edema 782.3 [place] [address] [address] [facility] [id number] [address] [place] [id number] Oct, Lumbar back pain 724.2 [place] [address] [address] [facility] [id number] [address] [place] [phone] Oct, Cervicalgia 723.1 ; Lumbar b ack pain 724.2 and High risk medication use V58.69 [facility] [address] [id number] [address] [place] [phone] Sep, [place] [address] [address] [facility] [id number] [address] [place] [phone] Sep, Lumbar strain 847.2 [place] [address] [address] [facility] [id number] [address] [place] [phone] August, Edema 782.3 and Eustachian t ube dysfunction 381.81 [place] [address] [id number] [address] [place] [phone] August, [facility] [address] [id number] [address] [place] [id number] August, Eustachian tube dysfunction 381.81 [facility] [address] [id number] [address] [place] [phone] Jul, Otalgia 388.70 and Otitis me jonathon 382.9 [facility] [address] [id number] [address] [place] [id number] Jul, [facility] [address] [id number] [address] [place] [phone] Jul, [facility] [address] [id number] [address] [place] [phone] Jul, [facility] [address] [id number] [address] [place] [phone] Jul, [facility] [address] [id number] [address] [place] [phone] Jul, [facility] [address] [id number] [address] [place] [phone] Jun, [facility] [address] [id number] [address] [place] [phone] Jun, [facility] [address] [id number] [address] [place] [phone] [address], [address] [facility] [address] [id number] [address] [place] [phone] May, [facility] [address] [id number] [address] [place] [phone] May, [facility] [address] [id number] [address] [place] [phone] May, [facility] [address] [id number] [address] [place] [phone] May, [facility] [address] [id number] [address] [place] [address], [place] [address] May, [facility] [address] [id number] [address] [place] [address], [place] [address] May, [facility] [address] [id number] [address] [place] [address], [place] [address] May, [facility] [address] [id number] [address] [place] [address], [place] [address] May, [facility] [address] [id number] [address] [place] [address], [place] [address] May, [facility] [address] [id number] [address] [place] [address], [place] [address] May, [facility] [address] [id number] [address] [place] [address], [place] [address] Apr, [facility] [address] [id number] [address] [place] [address], [place] [address] Apr, [facility] [address] [id number] [address] [place] [address], [place] [address] Apr, [facility] [address] [id number] [address] [place] [address], [place] [address] Apr, [facility] [address] [id number] [address] [place] [address], [place] [address] Apr, [facility] [address] [id number] [address] [place] [address], [place] [address] Apr, [facility] [address] [id number] [address] [place] [address], [place] [address] Apr, [facility] [address] [id number] [address] [place] [address], [place] [address] Apr, [facility] [address] [id number] [address] [place] [address], [place] [address] Apr, [facility] [address] [id number] [address] [place] [address], [place] [address] Apr, [facility] [address] [id number] [address] [place] [address], [place] [address] Apr, [facility] [address] [id number] [address] [place] [address], [place] [address] Apr, [facility] [address] [id number] [address] [place] [address], [place] [address] Apr, [facility] [address] [id number] [address] [place] [address], [place] [address] Apr, [facility] [address] [id number] [address] [place] [address], [place] [address] Apr, [facility] [address] [id number] [address] [place] [address], [place] [address] Mar, [facility] [address] [id number] [address] [place] [address], [place] [address] Mar, [facility] [address] [id number] [address] [place] [address], [place] [address] Mar, [facility] [address] [id number] [address] [place] [address], [place] [address] Mar, [facility] [address] [id number] [address] [place] [address], [place] [address] Feb, [facility] [address] [id number] [address] [place] [address], [place] [address] Feb, [facility] [address] [id number] [address] [place] [address], [place] [address] Feb, [facility] [address] [id number] [address] [place] [address], [place] [address] Feb, [facility] [address] [id number] [address] [place] [address], [place] [address] Jan, [facility] [address] [id number] [address] [place] [address], [place] [address] Jan, [facility] [address] [id number] [address] [place] [address], [place] [address] Jan, [facility] [address] [id number] [address] [place] [address], [place] [address] Jan, [facility] [address] [id number] [address] [place] [address], [place] [address] Jan, [facility] [address] [id number] [address] [place] [address], [place] [address] Jan, [facility] [address] [id number] [address] [place] [address], [place] [address] Jan, [facility] [address] [id number] [address] [place] [address], [place] [address] Jan, [facility] [address] [id number] [address] [place] [address], [place] [address] Dec, [facility] [address] [id number] [address] [place] [address], [place] [address] 29 Dec, 2013 [facility] [address] [id number] [address] [place] [address], [place] [address] Dec, [facility] [address] [id number] [address] [place] [address], [place] [address] 04 Dec, 2013 [facility] [address] [id number] [address] [place] [address], [place] [address] Oct, [facility] [address] [id number] [address] [place] [address], [place] [address] 14 Oct, 2013 [facility] [address] [id number] [address] [place] [address], [place] [address] Oct, [facility] [address] [id number] [address] [place] [address], [place] [address] Oct, [facility] [address] [id number] [address] [place] [address], [place] [address] Oct, [facility] [address] [id number] [address] [place] [address], [place] [address] Oct, [facility] [address] [id number] [address] [place] [address], [place] [address] Oct, [facility] [address] [id number] [address] [place] [address], [place] [address] Oct, [facility] [address] [id number] [address] [place] [address], [place] [address] Sep, [facility] [address] [id number] [address] [place] [address], [place] [address] Sep, [facility] [address] [id number] [address] [place] [address], [place] [address] Sep, [facility] [address] [id number] [address] [place] [address], [place] [address] Sep, [facility] [address] [id number] [address] [place] [address], [place] [address] Sep, [facility] [address] [id number] [address] [place] [address], [place] [address] Sep, [facility] [address] [id number] [address] [place] [address], [place] [address] Sep, [facility] [address] [id number] [address] [place] [address], [place] [address] Sep, [facility] [address] [id number] [address] [place] [address], [place] [address] Sep, [facility] [address] [id number] [address] [place] [address], [place] [address] Sep, [facility] [address] [id number] [address] [place] [address], [place] [address] August, [facility] [address] [id number] [address] [place] [address], [place] [address] August, [facility] [address] [id number] [address] [place] [address], [place] [address] August, [facility] [address] [id number] [facility] [place] [address] August, [facility] [address] [id number] [address] [place] [address], [place] [address] August, [facility] [address] [id number] [address] [place] [address], [place] [address] August, [facility] [address] [id number] [address] [place] [address], [place] [address] August, [facility] [address] [id number] [address] [place] [address], [place] [address] August, [facility] [address] [id number] [address] [place] [address], [place] [address] August, [facility] [address] [id number] [address] [place] [address], [place] [address] August, [facility] [address] [id number] [address] [place] [address], [place] [address] August, [facility] [address] [id number] [address] [place] [address], [place] [address] August, [facility] [address] [id number] [address] [place] [address], [place] [address] Jul, [facility] [address] [id number] [address] [place] [address], [place] [address] Jul, [facility] [address] [id number] [address] [place] [address], [place] [address] Jul, [facility] [address] [id number] [address] [place] [address], [place] [address] Jul, [facility] [address] [id number] [address] [place] [address], [place] [address] Jul, [facility] [address] [id number] [address] [place] [address], [place] [address] Jul, [facility] [address] [id number] [address] [place] [address], [place] [address] Jun, [facility] [address] [id number] [address] [place] [address], [place] [address] Jun, [facility] [address] [id number] [address] [place] [address], [place] [address] May, [facility] [address] [id number] [address] [place] [address], [place] [address] May, [facility] [address] [id number] [address] [place] [address], [place] [address] Apr, [facility] [address] [id number] [address] [place] [address], [place] [address] Apr, [facility] [address] [id number] [address] [place] [address], [place] [address] Apr, [facility] [address] [id number] [address] [place] [address], [place] [address] Apr, [facility] [address] [id number] [address] [place] [address], [place] [address] Apr, [facility] [address] [id number] [address] [place] [address], [place] [address] Apr, [facility] [address] [id number] [address] [place] [address], [place] [address] Apr, [facility] [address] [id number] [address] [place] [address], [place] [address] Apr, [facility] [address] [id number] [address] [place] [address], [place] [address] Apr, [facility] [address] [id number] [address] [place] [address], [place] [address] Apr, [facility] [address] [id number] [address] [place] [address], [place] [address] Apr, [facility] [address] [id number] [address] [place] [address], [place] [address] Apr, [facility] [address] [id number] [address] [place] [address] [place] [address] Apr, [facility] [address] [id number] [address] [place] [address], [place] [address] 10 Mar, 2013 [facility] [address] [id number] [address] [place] [address], [place] [address] Mar, [facility] [address] [id number] [address] [place] [address], [place] [address] Mar, [facility] [address] [id number] [address] [place] [address], [place] [address] Mar, [facility] [address] [id number] [address] [place] [address], [place] [address] Feb, [facility] [address] [id number] [address] [place] [address], [place] [address] Feb, [facility] [address] [id number] [address] [place] [address], [place] [address] Feb, [facility] [address] [id number] [address] [place] [address], [place] [address] Feb, [facility] [address] [id number] [address] [place] [address], [place] [address] 14 Jan, 2013 [facility] [address] [id number] [address] [place] [address], [place] [address] 14 Jan, 2013 [facility] [address] [id number] [address] [place] [address], [place] [address] 11 Jan, 2013 [facility] [address] [id number] [address] [place] [id number] 11 Jan, 2013 [facility] [address] [id number] [address] [place] [id number] 10 Jan, 2013 [facility] [address] [id number] [address] [place] [address], [place] [address] 10 Jan, 2013 [facility] [address] [id number] [address] [place] [id number] 09 Jan, 2013 [facility] [address] [id number] [address] [place] [address], [place] [address] Jan, [facility] [address] [id number] [address] [place] [address], [place] [id number] Jan, [facility] [address] [id number] [address] [place] [address], [place] [address] Dec, [facility] [address] [id number] [address] [place] [address], [place] [id number] 16 Dec, 2012 [facility] [address] [id number] [address] [place] [address], [place] [id number] 16 Dec, 2012 [facility] [address] [id number] [address] [place] [address], [place] [address] Dec, [facility] [address] [id number] [address] [place] [address], [place] [address] Nov, [facility] [address] [id number] [address] [place] [address], [place] [address] Nov, [facility] [address] [id number] [address] [place] [address], [place] [address] Nov, [facility] [address] [id number] [address] [place] [address], [place] [address] Nov, [facility] [address] [id number] [address] [place] [address], [place] [address] Oct, [facility] [address] [id number] [address] [place] [address], [place] [address] Sep, [facility] [address] [id number] [address] [place] [address], [place] [address] August, [facility] [address] [id number] [address] [place] [address], [place] [address] August, [facility] [address] [id number] [address] [place] [address], [place] [address] August, [facility] [address] [id number] [address] [place] [address], [place] [address] August, [facility] [address] [id number] [address] [place] [address], [place] [address] August, [facility] [address] [id number] [address] [place] [address], [place] [address] August, [facility] [address] [id number] [address] [place] [address], [place] [address] August, [facility] [address] [id number] [address] [place] [address], [place] [address] August, [facility] [address] [id number] [address] [place] [address], [place] [address] August, [facility] [address] [id number] [address] [place] [address], [place] [address] August, [facility] [address] [id number] [address] [place] [address], [place] [address] August, [facility] [address] [id number] [address] [place] [address], [place] [address] August, [facility] [address] [id number] [address] [place] [address], [place] [address] Jul, [facility] [address] [id number] [address] [place] [address], [place] [address] Jul, [facility] [address] [id number] [address] [place] [address], [place] [address] 18 Jul, 2012 [facility] [address] [id number] [address] [place] [address], [place] [address] 15 Jul, 2012 [facility] [address] [id number] [address] [place] [address], [place] [address] Jul, [facility] [address] [id number] [address] [place] [address], [place] [address] 08 Jul, 2012 [facility] [address] [id number] [address] [place] [address], [place] [address] 04 Jul, 2012 [facility] [address] [id number] [address] [place] [address], [place] [address] Jul, [facility] [address] [id number] [address] [place] [address], [place] [address] Jul, [facility] [address] [id number] [address] [place] [address], [place] [address] Jul, [facility] [address] [id number] [address] [place] [address], [place] [address] Jul, [facility] [address] [id number] [address] [place] [address], [place] [address] Jun, [facility] [address] [id number] [address] [place] [address], [place] [address] Jun, [facility] [address] [id number] [address] [place] [address], [place] [address] Jun, [facility] [address] [id number] [address] [place] [address], [place] [address] Jun, [facility] [address] [id number] [address] [place] [address], [place] [address] May, [facility] [address] [id number] [address] [place] [address], [place] [address] May, [facility] [address] [id number] [address] [place] [address], [place] [address] May, [facility] [address] [id number] [address] [place] [address], [place] [address] May, [facility] [address] [id number] [address] [place] [address], [place] [address] May, [facility] [address] [id number] [address] [place] [address], [place] [address] May, [facility] [address] [id number] [address] [place] [address], [place] [address] Apr, [facility] [address] [id number] [address] [place] [address], [place] [address] 31 Apr, 2012 [facility] [address] [id number] [address] [place] [address], [place] [address] 30 Apr, 2012 [facility] [address] [id number] [address] [place] [address], [place] [address] 28 Apr, 2012 [facility] [address] [id number] [address] [place] [address], [place] [address] 15 Mar, 2012 [facility] [address] [id number] [address] [place] [address], [place] [address] 14 Mar, 2012 [facility] [address] [id number] [address] [place] [address], [place] [address] 14 Mar, 2012 [facility] [address] [id number] [address] [place] [address], [place] [address] 14 Mar, 2012 [facility] [address] [id number] [address] [place] [address], [place] [address] Mar, [facility] [address] [id number] [address] [place] [address], [place] [address] 06 Mar, 2012 [facility] [address] [id number] [address] [place] [address], [place] [address] Mar, [facility] [address] [id number] [address] [place] [address], [place] [address] Feb, [facility] [address] [id number] [address] [place] [address], [place] [address] Feb, [facility] [address] [id number] [address] [place] [address], [place] [address] Feb, [facility] [address] [id number] [address] [place] [address], [place] [address] Feb, [facility] [address] [id number] [address] [place] [address], [place] [address] Jan, [facility] [address] [id number] [address] [place] [address], [place] [address] Jan, [facility] [address] [id number] [address] [place] [address], [place] [address] 10 Jan, 2012 [facility] [address] [id number] [address] [place] [address], [place] [address] Jan, [facility] [address] [id number] [address] [place] [address], [place] [address] Jan, [facility] [address] [id number] [address] [place] [address], [place] [address] Jan, [facility] [address] [id number] [address] [place] [address], [place] [address] Dec, [facility] [address] [id number] [address] [place] [address], [place] [address] Dec, [facility] [address] [id number] [address] [place] [address], [place] [address] Nov, [facility] [address] [id number] [address] [place] [address], [place] [address] Sep, [facility] [address] [id number] [address] [place] [address], [place] [address] August, [facility] [address] [id number] [address] [place] [address], [place] [address] August, [facility] [address] [id number] [address] [place] [address], [place] [address] August, [facility] [address] [id number] [address] [place] [address], [place] [address] August, [facility] [address] [id number] [address] [place] [address], [place] [address] August, [facility] [address] [id number] [address] [place] [address], [place] [address] Jun, [facility] [address] [id number] [address] [place] [address], [place] [address] Jun, [facility] [address] [id number] [address] [place] [address], [place] [address] Apr, [facility] [address] [id number] [address] [place] [address], [place] [address] Apr, [facility] [address] [id number] [address] [place] [address], [place] [address] 23 Mar, 2011 [facility] [address] [id number] [address] [place] [address], [place] [address] Feb, [facility] [address] [id number] [address] [place] [address], [place] [address] 14 Feb, 2011 [facility] [address] [id number] [address] [place] [address], [place] [address] 14 Feb, 2011 [facility] [address] [id number] [address] [place] [address], [place] [address] 17 Jan, 2011 [facility] [address] [id number] [address] [place] [address], [place] [address] 15 Jan, 2011 [facility] [address] [id number] [address] [place] [address], [place] [address] 15 Jan, 2011 [facility] [address] [id number] [address] [place] [address], [place] [address] 14 Jan, 2011 [facility] [address] [id number] [address] [place] [address], [place] [address] 15 May, 2010 [facility] [address] [id number] [address] [place] [address], [place] [address] 04 Mar, 2010 [facility] [address] [id number] [address] [place] [address], [place] [address] Oct, [facility] [address] [id number] [address] [place] [address], [place] [address] 14 Sep, 2009 [facility] [address] [id number] [address] [place] [address], [place] [address] 09 Mar, 2009 [facility] [address] [id number] [address] [place] [address], [place] [address] 27 Jan, 2009 [facility] [address] [id number] [address] [address] Jan, [facility] [address] [facility] [id number] [place] [address] May, IMMUNIZATIONS No Known Immunizations SOCIAL HISTORY Never Assessed REASON FOR VISIT PLAN OF CARE VITAL SIGNS Height 62 in 2013-03-06 Weight 181 lbs 2013-03-06 Temperature 97.8 degrees Fahrenheit 2013-03-06 Heart Rate 80 bpm 2013-03-06 Respiratory Rate 18 2013-03-06 Blood pressure systolic 130 mmHg 2013-03-06 Blood pressure diastolic 90 mmHg 2013-03-06 MEDICATIONS Unknown Medications RESULTS No Results PROCEDURES [...]
--- OUTSIDE RECORDS SUMMARY | 2019-11-23 06:20 | XMS REPORT ---
Author Author Liana Coe Doctor Organization [facility] Address Unknown Phone Unavailable Care Team Providers Care Marketing Development Manager Name Role Phone Migration, Doctor Unavailable Unavailable PROBLEMS Type Condition ICD9-CM Code [id number] Code Onset Dates Condition S tatus SNOMED Code Problem Anxiety F41.9 Active 11083618 Problem Neck pain M54.2 Active 95190435 Problem Neuroforaminal stenosis of spine M99.89 Active 162252338138 Problem Hematuria, unspecified type R31.9 Ac tive 01187930 Problem Seasonal allergies J30.2 Active 4 96639550 Problem Abnormal glucose R73.09 Active 102 337288 Problem Rhinosinusitis J32.9 Active 99394 4004 Problem Abnormal renal ultrasound R93.429 Acti ve [id number] Problem Essential hypertension I10 Active 73485137 Problem Mixed hyperlipidemia E78.2 Active 97464647 Problem Hypokalemia E87.6 Active 69463581 Problem Chronic pain due to trauma G89.21 Act juanis [id number] ALLERGIES No Information ENCOUNTERS Encounter Location Date Diagnosis [place] [address] [address] Jun, [place] [address] [address] Jun, [place] [address] [address] May, Left elbow pain M25.522 [place] [address] [address] May, [place] [address] [address] May, Left elbow pain M25.522 [place] [address] [address] May, Neuroforaminal stenosis of spine M99.89 [place] [address] [address] 26 May, 2019 Rhinosinusitis J32.9 ; Left elbow pain M 25.522 and Neck pain M54.2 [place] [address] [address] 14 May, 2019 Lateral epicondylitis of left elbow M77. 12 [place] [address] [address] Apr, Neuroforaminal stenosis of spine M99.89 [place] [address] [address] 13 Apr, 2019 Essential hypertension I10 and Mixed hyp erlipidemia E78.2 [place] [address] [address] Mar, Neuroforaminal stenosis of spine M99.89 [place] [address] [address] Mar, Epicondylitis, lateral, left M77.12 [place] [address] [address] Mar, [place] [address] [address] Mar, Neuroforaminal stenosis of spine M99.89 [place] [address] [address] Feb, Neuroforaminal stenosis of spine M99.89 ; Essential hypertension I10 ; Mixed hyperlipidemia E78.2 ; Encounter for immunization Z23 and Seasonal allergies J30.2 [place] [address] [address] Jan, Neuroforaminal stenosis of spine M99.89 [place] [address] [address] Dec, Neuroforaminal stenosis of spine M99.89 [place] [address] [address] Dec, Neuroforaminal stenosis of spine M99.89 [place] [address] [address] Nov, [place] [address] [address] Nov, Neuroforaminal stenosis of spine M99.89 [place] [address] [address] Nov, Acute non-recurrent maxillary sinusitis J01.00 [place] [address] [address] Oct, Hypokalemia E87.6 [facility] [address] [facility] [id number] [address] [place] [address] Oct, Wasp sting, undetermined int ent, initial encounter T63.464A and Cellulitis of left lower extremity L03.116 [place] [address] [address] Oct, Neuroforaminal stenosis of spine M99.89 [place] [address] [address] Sep, [place] [address] [address] Sep, [place] [address] [address] Sep, Routine screening for STI (sexually veronica smitted infection) Z11.3 [place] [address] [address] 14 Sep, 2018 Routine screening for STI (sexually veronica smitted infection) Z11.3 ; Well woman exam with routine gynecological exam Z01.419 and Breast cancer screening Z12.39 [place] [address] [address] 10 Sep, 2018 Neuroforaminal stenosis of spine M99.89 [place] [address] [address] August, Neuroforaminal stenosis of spine M99.89 [place] [address] [address] August, Neuroforaminal stenosis of spine M99.89 ; Chronic pain due to trauma G89.21 and Mixed hyperlipidemia E78.2 [place] [address] [address] Jul, Viral upper respiratory illness J06.9 an d Acute non-recurrent frontal sinusitis J01.10 [place] [address] [address] Jul, Congestion of nasal sinus R09.81 [place] [address] [address] Jul, Neuroforaminal stenosis of spine M99.89 and Essential hypertension I10 [place] [address] [address] May, Neuroforaminal stenosis of spine M99.89 [place] [address] [address] May, [place] [address] [address] May, Congestion of nasal sinus R09.81 [place] [address] [address] May, [facility] [address] [address] Apr, Neuroforaminal stenosis of spine M99.89 [place] [address] [address] Apr, Neuroforaminal stenosis of spine M99.89 and Chronic pain due to trauma G89.21 [facility] [address] [address] Mar, UTI (urinary tract infection) N39.0 [place] [address] [address] 07 Mar, 2018 Vertigo R42 [place] [address] [place] [address] 03 Mar, 2018 Neuroforaminal stenosis of spine M99.89 [place] [address] [address] 08 Feb, 2018 Extensor tendon disruption M67.89 [place] [address] [address] Feb, Neuroforaminal stenosis of spine M99.89 and High risk medication use Z79.899 [place] [address] [place] [address] Jan, Hypokalemia E87.6 [place] [address] [address] Jan, Flank pain R10.9 and Acute right-sided l ow back pain without sciatica M54.5 [place] [address] [address] Jan, Hypokalemia E87.6 [place] [address] [address] Jan, [place] [address] [address] Jan, URI, acute J06.9 [place] [address] [address] 05 Jan, 2018 Neuroforaminal stenosis of spine M99.89 [place] [address] [address] 13 Dec, 2017 Lateral epicondylitis, right elbow M77.1 1 [place] [address] [address] 11 Dec, 2017 Allergic rhinitis due to pollen, unspeci fied seasonality J30.1 and Allergic conjunctivitis of both eyes H10.13 [place] [address] [address] 10 Dec, 2017 Neuroforaminal stenosis of spine M99.89 [place] [address] [address] Dec, Mixed hyperlipidemia E78.2 [place] [address] [address] 05 Dec, 2017 Abnormal glucose R73.09 ; Abnormal renal ultrasound R93.429 ; Dysuria R30.0 ; Cystitis without hematuria N30.90 ; Hypokalemia E87.6 ; Mixed hyperlipidemia E78.2 and Hematuria, unspecified type R31.9 [place] [address] [address] Nov, Hypokalemia E87.6 ; Mixed hyperlipidemia E78.2 and Hematuria, unspecified type R31.9 [place] [address] [address] Nov, [place] [address] [address] Nov, Hypokalemia E87.6 [place] [address] [address] Nov, [place] [address] [address] Nov, Abnormal renal ultrasound R93.429 [place] [address] [address] Nov, Abnormal renal ultrasound R93.429 [place] [address] [address] Nov, Hematuria, unspecified type R31.9 and Ne uroforaminal stenosis of spine M99.89 [place] [address] [address] Nov, Dysuria R30.0 [place] [address] [address] Oct, Lateral epicondylitis, right elbow M77.1 1 [place] [address] [address] Oct, Neuroforaminal stenosis of spine M99.89 ; Visit for TB skin test Z11.1 and Essential hypertension I10 [place] [address] [address] Oct, [place] [address] [address] Oct, Neuroforaminal stenosis of spine M99.89 [place] [address] [address] Oct, Visit for TB skin test Z11.1 [place] [address] [address] Oct, Cystitis without hematuria N30.90 [place] [address] [address] Sep, Screening breast examination Z12.39 [place] [address] [address] Sep, Dysuria R30.0 and Cystitis without hemat uria N30.90 [place] [address] [address] Sep, Essential hypertension I10 and Neurofora ingrid stenosis of spine M99.89 [place] [address] [address] Sep, Abnormal glucose R73.09 [place] [address] [address] August, Lateral epicondylitis, right elbow M77.1 1 [place] [address] [address] August, Screen for STD (sexually transmitted dis ease) Z11.3 [place] [address] [address] August, Neuroforaminal stenosis of spine M99.89 ; Mixed hyperlipidemia E78.2 ; Elevated fasting glucose R73.01 ; Screening mammogram, encounter for Z12.31 and Encounter for well woman exam without gynecological exam Z00.00 [place] [address] [address] August, Neuroforaminal stenosis of spine M99.89 [place] [address] [address] August, Essential hypertension I10 ; Hypokalemia E87.6 and Mixed hyperlipidemia E78.2 [place] [address] [address] Jul, [place] [address] [address] Jul, Neuroforaminal stenosis of spine M99.89 [place] [address] [address] Jul, Lateral epicondylitis, right elbow M77.1 1 [place] [address] [address] Jul, [place] [address] [address] Jun, High ankle sprain of right lower extremi ty, initial encounter S93.431A [place] [address] [address] Jun, Essential hypertension I10 [place] [address] [address] Jun, [place] [address] [address] Jun, [place] [address] [address] Jun, Neuroforaminal stenosis of spine M99.89 [place] [address] [address] Jun, Pain of right upper extremity M79.601 an d Essential hypertension I10 [place] [address] [address] Jun, [place] [address] [address] Jun, Dysuria R30.0 ; Acute cystitis with keturah turia N30.01 and Screen for STD (sexually transmitted disease) Z11.3 [place] [address] [address] May, Chronic pain due to trauma G89.21 [place] [address] [address] May, Essential hypertension I10 [address] [address] May, Neuroforaminal stenosis of spine M99.[address] [address] Apr, Allergic reaction, initial encounter T78 .40XA [address] [address] Apr, Low back pain, unspecified back pain lat erality, unspecified chronicity, with sciatica presence unspecified M54.5 ; Acute cystitis with hematuria N30.01 ; Neuroforaminal stenosis of spine M99.89 ; Bilateral acute serous otitis media, recurrence not specified H65.03 ; Mixed hyperlipidemia E78.2 ; Essential hypertension I10 ; Immunization counseling Z71.89 and Encounter for immunization Z23 [place] [address] [address] Apr, Neck pain M54.[address] [address] Mar, Neuroforaminal stenosis of spine M99.[address] [address] Mar, Pharyngitis due to other organism J02.8 [facility] [address] [address] Feb, Neuroforaminal stenosis of spine M99.89 [facility] [address] [address] Feb, UTI (urinary tract infection) N39.0 [facility] [address] [address] 07 Feb, 2017 Recent urinary tract infection Z87.440 ; Neuroforaminal stenosis of spine M99.89 ; Neck pain M54.2 ; Chronic pain due to trauma G89.21 and Recurrent UTI N39.0 [place] [address] [address] Feb, [place] [address] [address] Jan, Neuroforaminal stenosis of spine M99.89 [place] [address] [address] Dec, Neuroforaminal stenosis of spine M99.89 [place] [address] [address] Dec, Acute seasonal allergic rhinitis due to pollen J30.1 [place] [address] [address] Dec, [place] [address] [address] Dec, Acute seasonal allergic rhinitis, unspec ified trigger J30.2 ; Allergic conjunctivitis of both eyes H10.13 and Dysfunction of both eustachian tubes H69.83 [place] [address] [address] Dec, [place] [address] [address] Dec, Nevus D22.9 [facility] [address] [address] Nov, Chronic pain due to trauma G89.21 and Ne uroforaminal stenosis of spine M99.89 [place] [address] [address] Nov, Neuroforaminal stenosis of spine M99.89 ; Essential hypertension I10 ; Mixed hyperlipidemia E78.2 ; Hypokalemia E87.6 ; Neck pain M54.2 and Nevus D22.9 [facility] [address] [address] Oct, Neuroforaminal stenosis of spine M99.89 [place] [address] [address] Sep, Neuroforaminal stenosis of spine M99.89 [place] [address] [address] Sep, [place] [address] [address] August, [place] [address] [address] August, Neck pain M54.2 and Neuroforaminal steno sis of spine M99.89 [place] [address] [address] August, Routine gynecological examination Z01.41 9 and Screening breast examination Z12.39 [place] [address] [address] Jul, [place] [address] [address] Jul, [facility] [address] [address] Jul, Neuroforaminal stenosis of spine M99.89 [facility] [address] [address] Jul, [facility] [address] [address] Jul, 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 [place] [address] [address] Jul, [place] [address] [address] Jul, [place] [address] [address] Jun, Neuroforaminal stenosis of spine M99.89 [place] [address] [address] Jun, Uterine leiomyoma, unspecified location D25.9 and Allergic reaction caused by a drug, initial encounter T78.40XA [place] [address] [address] Jun, [place] [address] [address] May, UTI symptoms R39.9 and Pain of right sac roiliac joint M53.3 [place] [address] [address] May, Neuroforaminal stenosis of spine M99.89 [place] [address] [address] May, [place] [address] [address] May, Acute mucoid otitis media of left ear H6 5.112 and Acute non-recurrent maxillary sinusitis J01.00 [place] [address] [address] May, Acute bacterial conjunctivitis of both e yes H10.33 ; Left arm pain M79.602 and Hypokalemia E87.6 [place] [address] [address] Apr, [place] [address] [address] Apr, Neuroforaminal stenosis of spine M99.89 ; Neck pain M54.2 ; Chronic pain due to trauma G89.21 ; Mixed hyperlipidemia E78.2 ; Essential hypertension I10 and Hypokalemia E87.6 [place] [address] [address] Mar, Oral candidiasis B37.0 ; Neuroforaminal stenosis of spine M99.89 ; Neck pain M54.2 and Chronic pain due to trauma G89.21 [place] [address] [address] Feb, [place] [address] [address] Feb, [place] [address] [address] Feb, UTI (urinary tract infection) N39.0 [place] [address] [address] Feb, Dysuria R30.0 [place] [address] [address] Feb, Dysuria R30.0 [place] [address] [address] Feb, Neuroforaminal stenosis of spine M99.89 ; Neck pain M54.2 ; Essential hypertension I10 ; Chronic pain due to trauma G89.21 ; Dysuria R30.0 ; Abnormal MRI, shoulder R93.8 and Acute cystitis without hematuria N30.00 [place] [address] [address] Jan, [place] [address] [address] Jan, [place] [address] [address] Jan, [place] [address] [address] Jan, Abnormal MRI R93.8 [place] [address] [id number] [place] [address] 29 Dec, 2015 [facility] [address] [facility] [id number] [place] [address] 15 Dec, 2015 Acute pain of left shoulder M25.512 [facility] [address] [id number] [place] [address] 09 Dec, 2015 [facility] [address] [address] 08 Dec, 2015 [facility] [address] [place] [id number] [place] [address] 07 Dec, 2015 Acute pain of left shoulder M25.512 [facility] [address] [address] 23 Nov, 2015 [facility] [address] [address] 16 Nov, 2015 Neuroforaminal stenosis of spine M99.89 ; Neck pain M54.2 ; Abnormal mammogram R92.8 ; Essential hypertension I10 and Chronic pain due to trauma G89.21 [facility] [address] [place] [id number] [place] [address] Nov, [facility] [address] [place] [id number] [place] [address] Oct, Acute stress disorder F43.0 [facility] [address] [place] [id number] [place] [address] Oct, [facility] [address] [place] [id number] [place] [address] Oct, [facility] [address] [place] [id number] [place] [address] 05 Oct, 2015 [facility] [address] [place] [id number] [place] [address] 15 Sep, 2015 [facility] [address] [place] [id number] [place] [address] August, [facility] [address] [address] Jul, Neuroforaminal stenosis of spine M99.89 ; Neck pain M54.2 ; Abnormal mammogram R92.8 and Essential hypertension I10 [facility] [address] [address] Jul, [facility] [address] [address] Jul, [facility] [address] [address] Jul, Abnormal mammogram R92.8 [facility] [address] [address] Jul, [facility] [address] [address] Jul, UTI (urinary tract infection) N39.0 [facility] [address] [address] Jul, Dysuria R30.0 [facility] [address] [address] Jun, [facility] [address] [address] Jun, [facility] [address] [address] Jun, Hypokalemia E87.6 and Hematuria R31.9 [facility] [address] [address] Jun, Hypokalemia E87.6 [facility] [address] [address] Jun, [facility] [address] [address] Jun, Hypokalemia E87.6 [facility] [address] [address] Jun, Hypokalemia E87.6 [place] [address] [address] 15 Jun, 2015 Neuroforaminal stenosis of spine M99.89 ; Hypokalemia E87.6 ; Neck pain M54.2 ; Essential hypertension I10 ; Mixed hyperlipidemia E78.2 and Screening breast examination Z12.[address] [address] 08 Jun, 2015 Dysuria R30.0 ; UTI (urinary tract infec tion) N39.0 and Hematuria R31.[address] [address] May, [address] [address] 18 May, 2015 High risk sexual behavior Z72.51 ; Hypok alemia E87.6 ; Neuroforaminal stenosis of spine M99.89 ; Neck pain M54.2 ; Essential hypertension I10 ; Mixed hyperlipidemia E78.2 ; STD exposure Z20.2 and Concern about STD in female without diagnosis Z71.[address] [address] 16 May, 2015 Neuroforaminal stenosis of spine M99.89 ; Neck pain M54.2 ; Hypokalemia E87.6 ; Essential hypertension I10 and Mixed hyperlipidemia E78.[address] [address] 11 May, 2015 [facility] [address] [facility] [id number] [place] [address] 08 May, 2015 High risk sexual behavior Z7 2.51 ; STD exposure Z20.2 and Concern about STD in female without diagnosis Z71.[address] [address] 05 May, [address] [address] Apr, Neuroforaminal stenosis of spine M99.89 ; Mixed hyperlipidemia E78.2 ; Essential hypertension I10 and Hypokalemia E87.6 [place] [address] [address] Mar, [place] [address] [address] Mar, Hypokalemia E87.6 [place] [address] [address] Mar, Neuroforaminal stenosis of spine M99.89 ; Mixed hyperlipidemia E78.2 ; Neck pain M54.2 ; Essential hypertension I10 ; Abnormal fasting glucose R73.09 ; Hypokalemia E87.6 and Constipation K59.00 [place] [address] [address] Feb, Neuroforaminal stenosis of spine M99.89 ; Mixed hyperlipidemia E78.2 ; Neck pain M54.2 ; Essential hypertension I10 ; Abnormal fasting glucose R73.09 ; Hypokalemia E87.6 and Constipation K59.00 [place] [address] [address] Feb, Elevated fasting blood sugar R73.01 [place] [address] [address] Feb, Elevated fasting blood sugar R73.01 [place] [address] [address] Feb, Hair loss L65.9 [place] [address] [address] Feb, Sinusitis J32.9 ; Essential hypertension I10 and Hair loss L65.9 [place] [address] [address] Jan, [place] [address] [address] Jan, Essential hypertension I10 ; Neuroforami nal stenosis of spine M99.89 ; Neck pain M54.2 ; Mixed hyperlipidemia E78.2 and Anxiety F41.9 [place] [address] [address] Jan, [place] [address] [address] Jan, Mixed hyperlipidemia E78.2 ; Essential ( primary) hypertension I10 ; Strain of muscle, fascia and tendon at neck level, subsequent encounter S16.1XXD and Tension-type headache, unspecified, not intractable G44.209 [place] [address] [address] Dec, Lumbar back pain 724.2 and Neuroforamina l stenosis of spine 724.[address] [address] Nov, [address] [address] Nov, Lumbar back pain 724.2 and Neuroforamina l stenosis of spine 724.00 [place] [address] [address] Nov, Edema 782.3 ; Lumbar back pain 724.2 ; E ssential hypertension, benign 401.1 ; Hyperlipemia 272.4 ; Neuroforaminal stenosis of spine 724.00 and Post- concussion headache 339.20 [place] [address] [address] Nov, [place] [address] [address] Nov, [place] [address] [address] Oct, Essential hypertension, benign 401.[address] [address] Oct, Edema 782.3 ; Lumbar back pain 724.2 ; E ssential hypertension, benign 401.1 ; Hyperlipemia 272.4 ; Neuroforaminal stenosis of spine 724.00 and Post- concussion headache 339.20 [facility] [address] [place] [id number] [place] [address] Oct, [facility] [address] [address] Oct, Edema 782.3 [facility] [address] [place] [id number] [place] [address] Oct, Lumbar back pain 724.2 [facility] [address] [address] Oct, Cervicalgia 723.1 ; Lumbar back pain 724 .2 and High risk medication use V58.69 [facility] [address] [address] Sep, [facility] [address] [address] Sep, Lumbar strain 847.2 [facility] [id number] [place] [address] August, Edema 782.3 and Eustachian tube dysfunct ion 381.81 [facility] [id number] [place] [address] August, [facility] [address] [address] August, Eustachian tube dysfunction 381.81 [facility] [id number] [place] [address] Jul, Otalgia 388.70 and Otitis media 382.9 [facility] [id number] [place] [address] Jul, [facility] [address] [address] Jul, [facility] [id number] [place] [address] Jul, [facility] [address] [address] Jul, [facility] [address] [id number] [place] [address] 13 Jul, 2014 [facility] [address] [id number] [facility] [place] [address] 27 Jun, 2014 [facility] [address] [id number] [place] [address] 27 Jun, 2014 [facility] [place] [facility] [address] [id number] [place] [address] 16 Jun, 2014 [facility] [place] [facility] [address] [id number] [facility] [place] [address] May, [facility] [place] [facility] [address] [id number] [place] [address] May, [facility] [place] [facility] [address] [id number] [place] [address] May, [facility] [place] [facility] [address] [id number] [place] [address] May, [facility] [place] [facility] [address] [id number] [place] [address] May, 2014 [facility] [place] [facility] [address] [id number] [place] [address] May, [facility] [place] [facility] [address] [id number] [place] [address] May, [facility] [place] [facility] [address] [id number] [place] [address] May, [facility] [place] [facility] [address] [id number] [place] [address] May, [facility] [place] [facility] [address] [id number] [place] [address] May, [facility] [place] [facility] [address] [id number] [place] [address] Apr, [facility] [place] [facility] [address] [id number] [place] [address] Apr, [facility] [place] [facility] [address] [id number] [place] [address] Apr, [facility] [place] [facility] [address] [facility] [id number] [place] [address] Apr, [facility] [place] [facility] [address] [id number] [place] [address] Apr, [facility] [place] [facility] [address] [id number] [place] [address] Apr, [facility] [place] [facility] [address] [id number] [place] [address] Apr, [facility] [place] [facility] [address] [id number] [place] [address] Apr, [facility] [place] [facility] [address] [id number] [place] [address] Apr, [facility] [place] [facility] [address] [id number] [place] [address] Apr, [facility] [place] [facility] [address] [id number] [place] [address] Apr, [facility] [place] [facility] [address] [id number] [place] [address] Apr, [facility] [place] [facility] [address] [id number] [place] [address] Apr, [facility] [place] [facility] [address] [id number] [place] [address] Apr, [facility] [place] [facility] [address] [id number] [place] [address] Apr, [facility] [place] [facility] [address] [facility] [id number] [place] [address] Mar, [facility] [place] [facility] [address] [id number] [place] [address] Mar, [facility] [place] [facility] [address] [id number] [place] [address] Mar, [facility] [place] [facility] [address] [id number] [place] [address] Mar, [facility] [place] [facility] [address] [id number] [place] [address] Feb, [facility] [place] [facility] [address] [id number] [place] [address] Feb, [facility] [place] [facility] [address] [id number] [place] [address] Feb, [facility] [place] [facility] [address] [id number] [place] [address] Feb, [facility] [place] [facility] [address] [id number] [place] [address] Jan, [facility] [place] [facility] [address] [id number] [place] [address] Jan, [facility] [place] [facility] [address] [id number] [place] [address] Jan, [facility] [place] [facility] [address] [id number] [place] [address] Jan, [facility] [place] [facility] [address] [id number] [place] [address] Jan, [facility] [place] [facility] [address] [id number] [place] [address] Jan, [facility] [place] [facility] [address] [id number] [place] [address] Jan, [facility] [place] [facility] [address] [id number] [place] [address] Jan, [facility] [place] [facility] [address] [id number] [place] [address] Dec, 2013 [facility] [place] [facility] [address] [id number] [place] [address] 29 Sep, 2013 [facility] [place] [facility] [address] [id number] [place] [address] Sep, 2013 [facility] [place] [facility] [address] [id number] [place] [address] 04 Sep, 2013 [facility] [place] [facility] [address] [id number] [place] [address] 14 Oct, 2013 [facility] [place] [facility] [address] [facility] [id number] [facility] [place] [address] 14 Oct, 2013 [facility] [place] [facility] [address] [facility] [id number] [place] [address] Oct, 2013 [facility] [place] [facility] [address] [facility] [id number] [facility] [place] [address] Oct, 2013 [facility] [place] [facility] [address] [facility] [id number] [place] [address] Oct, 2013 [facility] [place] [facility] [address] [facility] [id number] [place] [address] Oct, 2013 [facility] [place] [facility] [address] [facility] [id number] [place] [address] Oct, 2013 [facility] [place] [facility] [address] [id number] [facility] [place] [address] Oct, 2013 [facility] [place] [facility] [address] [id number] [facility] [place] [address] Sep, [facility] [place] [facility] [address] [facility] [id number] [facility] [place] [address] Sep, [facility] [place] [facility] [address] [id number] [facility] [place] [address] Sep, [facility] [place] [facility] [address] [id number] [facility] [place] [address] Sep, [facility] [place] [facility] [address] [id number] [facility] [place] [address] Sep, [facility] [place] [facility] [address] [facility] [id number] [place] [address] Sep, [facility] [place] [facility] [address] [facility] [id number] [facility] [place] [address] Sep, [facility] [place] [facility] [address] [facility] [id number] [facility] [place] [address] Sep, [facility] [place] [facility] [address] [id number] [facility] [place] [address] Sep, [facility] [place] [facility] [address] [id number] [place] [address] Sep, [facility] [place] [facility] [address] [facility] [id number] [place] [address] August, [facility] [place] [facility] [address] [facility] [id number] [place] [address] August, [facility] [place] [facility] [address] [id number] [place] [address] August, [facility] [place] [facility] [address] [id number] [place] [address] August, [facility] [place] [facility] [address] [id number] [place] [address] August, [facility] [place] [facility] [address] [id number] [place] [address] August, [facility] [place] [facility] [address] [id number] [place] [address] August, [facility] [place] [facility] [address] [id number] [place] [address] August, [facility] [place] [facility] [address] [id number] [place] [address] August, [facility] [place] [facility] [address] [id number] [place] [address] August, [facility] [place] [facility] [address] [id number] [place] [address] August, [facility] [place] [facility] [address] [id number] [place] [address] August, [facility] [place] [facility] [address] [id number] [place] [address] Jul, [facility] [place] [facility] [address] [id number] [place] [address] Jul, [facility] [place] [facility] [address] [id number] [place] [address] Jul, [facility] [place] [facility] [address] [id number] [place] [address] Jul, [facility] [place] [facility] [address] [id number] [place] [address] Jul, [facility] [place] [facility] [address] [id number] [place] [address] Jul, [facility] [place] [facility] [address] [id number] [place] [address] Jun, [facility] [place] [facility] [address] [id number] [place] [address] Jun, [facility] [place] [facility] [address] [id number] [place] [address] May, [facility] [place] [facility] [address] [id number] [place] [address] May, [facility] [place] [facility] [address] [id number] [place] [address] Apr, [facility] [place] [facility] [address] [id number] [place] [address] Apr, [facility] [place] [facility] [address] [id number] [place] [address] Apr, [facility] [place] [facility] [address] [id number] [place] [address] Apr, [facility] [place] [facility] [address] [id number] [place] [address] Apr, [facility] [place] [facility] [address] [id number] [place] [address] Apr, [facility] [place] [facility] [address] [id number] [place] [address] Apr, [facility] [place] [facility] [address] [id number] [place] [address] Apr, [facility] [place] [facility] [address] [id number] [place] [address] Apr, [facility] [place] [facility] [address] [id number] [place] [address] Apr, [facility] [place] [facility] [address] [id number] [place] [address] Apr, [facility] [place] [facility] [address] [id number] [place] [address] Apr, [facility] [place] [facility] [address] [id number] [place] [address] Apr, [facility] [place] [facility] [address] [id number] [place] [address] Mar, [facility] [place] [facility] [address] [id number] [place] [address] Mar, [facility] [place] [facility] [address] [id number] [place] [address] Mar, [facility] [place] [facility] [address] [id number] [place] [address] Mar, [facility] [place] [facility] [address] [id number] [place] [address] Feb, [facility] [place] [facility] [address] [id number] [place] [address] Feb, [facility] [place] [facility] [address] [id number] [place] [address] Feb, [facility] [place] [facility] [address] [id number] [place] [address] 08 Feb, 2013 [facility] [place] [facility] [address] [id number] [place] [address] 14 Jan, 2013 [facility] [place] [facility] [address] [id number] [place] [address] 14 Jan, 2013 [facility] [place] [facility] [address] [id number] [place] [address] 11 Jan, 2013 [facility] [place] [facility] [address] [id number] [place] [address] 11 Jan, 2013 [facility] [place] [facility] [address] [id number] [place] [address] 10 Jan, 2013 [facility] [place] [facility] [address] [id number] [place] [address] 10 Jan, 2013 [facility] [place] [facility] [address] [id number] [place] [address] Jan, [facility] [place] [facility] [address] [id number] [place] [address] Jan, [facility] [place] [facility] [address] [id number] [place] [address] Jan, [facility] [place] [facility] [address] [id number] [place] [address] Dec, [facility] [place] [facility] [address] [id number] [place] [address] Dec, [facility] [place] [facility] [address] [id number] [place] [address] Dec, [facility] [place] [facility] [address] [id number] [place] [address] Dec, [facility] [place] [facility] [address] [id number] [place] [address] Nov, [facility] [place] [facility] [address] [id number] [place] [address] Nov, [facility] [place] [facility] [address] [id number] [place] [address] Nov, [facility] [place] [facility] [address] [id number] [place] [address] Nov, [facility] [place] [facility] [address] [id number] [place] [address] Oct, [facility] [place] [facility] [address] [id number] [place] [address] Sep, [facility] [place] [facility] [address] [id number] [place] [address] August, [facility] [place] [facility] [address] [id number] [place] [address] August, [facility] [place] [facility] [address] [id number] [place] [address] August, [facility] [place] [facility] [address] [id number] [place] [address] August, [facility] [address] [id number] [place] [address] August, [facility] [place] [facility] [address] [id number] [place] [address] August, [facility] [place] [facility] [address] [id number] [place] [address] August, [facility] [place] [facility] [address] [id number] [place] [address] August, [facility] [place] [facility] [address] [facility] [id number] [place] [address] August, [facility] [place] [facility] [address] [id number] [place] [address] August, [facility] [place] [facility] [address] [id number] [place] [address] August, [facility] [place] [facility] [address] [id number] [place] [address] August, [facility] [place] [facility] [address] [id number] [place] [address] Jul, [facility] [place] [facility] [address] [id number] [place] [address] Jul, [facility] [place] [facility] [address] [id number] [place] [address] 18 Jul, 2012 [facility] [place] [facility] [address] [id number] [place] [address] Jul, [facility] [place] [facility] [address] [id number] [place] [address] Jul, [facility] [place] [facility] [address] [id number] [place] [address] Jul, [facility] [place] [facility] [address] [id number] [place] [address] 04 Jul, 2012 [facility] [place] [facility] [address] [id number] [place] [address] Jul, [facility] [place] [facility] [address] [id number] [facility] [place] [address] Jul, [facility] [place] [facility] [address] [facility] [id number] [facility] [place] [address] Jul, [facility] [place] [facility] [address] [id number] [place] [address] Jul, [facility] [place] [facility] [address] [id number] [place] [address] Jun, [facility] [place] [facility] [address] [id number] [place] [address] Jun, [facility] [place] [facility] [address] [id number] [place] [address] Jun, [facility] [place] [facility] [address] [id number] [place] [address] Jun, [facility] [place] [facility] [address] [id number] [place] [address] May, [facility] [place] [facility] [address] [id number] [place] [address] May, [facility] [place] [facility] [address] [id number] [place] [address] May, [facility] [place] [facility] [address] [id number] [place] [address] May, [facility] [place] [facility] [address] [id number] [place] [address] May, [facility] [place] [facility] [address] [id number] [place] [address] May, [facility] [place] [facility] [address] [id number] [place] [address] Apr, [facility] [place] [facility] [address] [id number] [place] [address] Apr, [facility] [place] [facility] [address] [id number] [place] [address] Apr, [facility] [place] [facility] [address] [id number] [place] [address] Apr, [facility] [place] [facility] [address] [id number] [place] [address] 15 Mar, 2012 [facility] [place] [facility] [address] [id number] [place] [address] Mar, [facility] [place] [facility] [address] [id number] [place] [address] Mar, [facility] [place] [facility] [address] [id number] [place] [address] Mar, [facility] [place] [facility] [address] [id number] [place] [address] Mar, [facility] [place] [facility] [address] [id number] [place] [address] Mar, [facility] [place] [facility] [address] [id number] [place] [address] Mar, [facility] [place] [facility] [address] [id number] [place] [address] Feb, [facility] [place] [facility] [address] [id number] [place] [address] Feb, [facility] [place] [facility] [address] [id number] [place] [address] Feb, [facility] [place] [facility] [address] [id number] [place] [address] Feb, [facility] [place] [facility] [address] [id number] [place] [address] Jan, [facility] [place] [facility] [address] [id number] [place] [address] Jan, [facility] [address] [id number] [place] [address] Jan, [facility] [address] [id number] [place] [address] Jan, [facility] [address] [id number] [place] [address] Jan, [facility] [address] [id number] [place] [address] Jan, [facility] [address] [id number] [place] [address] Dec, [facility] [address] [id number] [place] [address] Dec, [facility] [address] [id number] [place] [address] Nov, [facility] [address] [id number] [place] [address] Sep, [facility] [address] [id number] [place] [address] August, [facility] [address] [id number] [place] [address] August, [facility] [address] [id number] [place] [address] August, [facility] [address] [id number] [place] [address] August, [facility] [address] [id number] [place] [address] August, [facility] [address] [id number] [place] [address] Jun, [facility] [address] [id number] [place] [address] Jun, [facility] [address] [id number] [place] [address] Apr, [facility] [address] [id number] [place] [address] Apr, [facility] [address] [id number] [place] [address] Mar, [facility] [address] [id number] [place] [address] Feb, [facility] [address] [id number] [place] [address] Feb, [facility] [id number] [place] [address] 14 Feb, 2011 [facility] [address] [address] 17 Jan, 2011 [facility] [address] [address] 15 Jan, 2011 [facility] [address] [address] 15 Jan, 2011 [facility] [address] [address] 14 Jan, 2011 [facility] [address] [address] May, [facility] [address] [address] Mar, [facility] [address] [address] Oct, [facility] [address] [address] Sep, [facility] [address] [address] Mar, [facility] [address] [address] Jan, [facility] [address] [address] Jan, [facility] [address] [address] May, IMMUNIZATIONS No Known Immunizations SOCIAL HISTORY [...]
--- OUTSIDE RECORDS SUMMARY | 2019-11-23 06:20 | XMS REPORT ---
Author Author Liana Coe Doctor Organization [facility] Address Unknown Phone Unavailable Care Team Providers Care Drapery Operator Name Role Phone Migration, Doctor Unavailable Unavailable PROBLEMS Type Condition ICD9-CM Code TJR32-DO Code Onset Dates Condition S tatus SNOMED Code Problem Anxiety F41.9 Active 52034575 Problem Neck pain M54.2 Active 76366264 Problem Neuroforaminal stenosis of spine M99.89 Active 051716115764 Problem Hematuria, unspecified type R31.9 Ac tive 83551569 Problem Seasonal allergies J30.2 Active 4 77239733 Problem Abnormal glucose R73.09 Active 102 553147 Problem Rhinosinusitis J32.9 Active 53582 4004 Problem Abnormal renal ultrasound R93.429 Acti ve [id number] Problem Essential hypertension I10 Active 57809561 Problem Mixed hyperlipidemia E78.2 Active 63980511 Problem Hypokalemia E87.6 Active 34389734 Problem Chronic pain due to trauma G89.21 Act juanis [id number] ALLERGIES No Information ENCOUNTERS Encounter Location Date Diagnosis [place] [address] [address] Jun, [place] [address] [address] Jun, [place] [address] [address] May, Left elbow pain M25.522 [place] [address] [address] May, [place] [address] [address] May, Left elbow pain M25.522 [place] [address] [address] May, Neuroforaminal stenosis of spine M99.89 [place] [address] [address] 26 May, 2019 Rhinosinusitis J32.9 ; Left elbow pain M 25.522 and Neck pain M54.2 [place] [address] [address] 14 May, 2019 Lateral epicondylitis of left elbow M77. 12 [place] [address] [address] Apr, Neuroforaminal stenosis of spine M99.89 [place] [address] [address] 13 Apr, 2019 Essential hypertension I10 and Mixed hyp erlipidemia E78.2 [place] [address] [address] Mar, Neuroforaminal stenosis of spine M99.89 [place] [address] [address] Mar, Epicondylitis, lateral, left M77.12 [place] [address] [address] Mar, [place] [address] [address] Mar, Neuroforaminal stenosis of spine M99.89 [place] [address] [address] Feb, Neuroforaminal stenosis of spine M99.89 ; Essential hypertension I10 ; Mixed hyperlipidemia E78.2 ; Encounter for immunization Z23 and Seasonal allergies J30.2 [place] [address] [address] Jan, Neuroforaminal stenosis of spine M99.89 [place] [address] [address] Dec, Neuroforaminal stenosis of spine M99.89 [place] [address] [address] Dec, Neuroforaminal stenosis of spine M99.89 [place] [address] [address] Nov, [place] [address] [address] Nov, Neuroforaminal stenosis of spine M99.89 [place] [address] [address] Nov, Acute non-recurrent maxillary sinusitis J01.00 [place] [address] [address] Oct, Hypokalemia E87.6 [facility] [address] [facility] [id number] [address] [place] [address] Oct, Wasp sting, undetermined int ent, initial encounter T63.464A and Cellulitis of left lower extremity L03.116 [place] [address] [address] Oct, Neuroforaminal stenosis of spine M99.89 [place] [address] [address] Sep, [place] [address] [address] Sep, [place] [address] [address] Sep, Routine screening for STI (sexually veronica smitted infection) Z11.3 [place] [address] [address] 14 Sep, 2018 Routine screening for STI (sexually veronica smitted infection) Z11.3 ; Well woman exam with routine gynecological exam Z01.419 and Breast cancer screening Z12.39 [place] [address] [address] 10 Sep, 2018 Neuroforaminal stenosis of spine M99.89 [place] [address] [address] August, Neuroforaminal stenosis of spine M99.89 [place] [address] [address] August, Neuroforaminal stenosis of spine M99.89 ; Chronic pain due to trauma G89.21 and Mixed hyperlipidemia E78.2 [place] [address] [address] Jul, Viral upper respiratory illness J06.9 an d Acute non-recurrent frontal sinusitis J01.10 [place] [address] [address] Jul, Congestion of nasal sinus R09.81 [place] [address] [address] Jul, Neuroforaminal stenosis of spine M99.89 and Essential hypertension I10 [place] [address] [address] May, Neuroforaminal stenosis of spine M99.89 [place] [address] [address] May, [place] [address] [address] May, Congestion of nasal sinus R09.81 [place] [address] [address] May, [facility] [place] [address] [address] Apr, Neuroforaminal stenosis of spine M99.89 [place] [address] [address] Apr, Neuroforaminal stenosis of spine M99.89 and Chronic pain due to trauma G89.21 [facility] [place] [address] [address] Mar, UTI (urinary tract infection) N39.0 [place] [address] [address] 07 Mar, 2018 Vertigo R42 [place] [address] [place] [address] 03 Mar, 2018 Neuroforaminal stenosis of spine M99.89 [place] [address] [address] 08 Feb, 2018 Extensor tendon disruption M67.89 [place] [address] [address] Feb, Neuroforaminal stenosis of spine M99.89 and High risk medication use Z79.899 [place] [address] [place] [address] Jan, Hypokalemia E87.6 [place] [address] [address] Jan, Flank pain R10.9 and Acute right-sided l ow back pain without sciatica M54.5 [place] [address] [address] Jan, Hypokalemia E87.6 [place] [address] [address] Jan, [place] [address] [address] Jan, URI, acute J06.9 [place] [address] [address] 05 Jan, 2018 Neuroforaminal stenosis of spine M99.89 [place] [address] [address] 13 Dec, 2017 Lateral epicondylitis, right elbow M77.1 1 [place] [address] [address] 11 Dec, 2017 Allergic rhinitis due to pollen, unspeci fied seasonality J30.1 and Allergic conjunctivitis of both eyes H10.13 [place] [address] [address] 10 Dec, 2017 Neuroforaminal stenosis of spine M99.89 [place] [address] [address] Dec, Mixed hyperlipidemia E78.2 [place] [address] [address] 05 Dec, 2017 Abnormal glucose R73.09 ; Abnormal renal ultrasound R93.429 ; Dysuria R30.0 ; Cystitis without hematuria N30.90 ; Hypokalemia E87.6 ; Mixed hyperlipidemia E78.2 and Hematuria, unspecified type R31.9 [place] [address] [address] Nov, Hypokalemia E87.6 ; Mixed hyperlipidemia E78.2 and Hematuria, unspecified type R31.9 [place] [address] [address] Nov, [place] [address] [address] Nov, Hypokalemia E87.6 [place] [address] [address] Nov, [place] [address] [address] Nov, Abnormal renal ultrasound R93.429 [place] [address] [address] Nov, Abnormal renal ultrasound R93.429 [place] [address] [address] Nov, Hematuria, unspecified type R31.9 and Ne uroforaminal stenosis of spine M99.89 [place] [address] [address] Nov, Dysuria R30.0 [place] [address] [address] Oct, Lateral epicondylitis, right elbow M77.1 1 [place] [address] [address] Oct, Neuroforaminal stenosis of spine M99.89 ; Visit for TB skin test Z11.1 and Essential hypertension I10 [place] [address] [address] Oct, [place] [address] [address] Oct, Neuroforaminal stenosis of spine M99.89 [place] [address] [address] Oct, Visit for TB skin test Z11.1 [place] [address] [address] Oct, Cystitis without hematuria N30.90 [place] [address] [address] Sep, Screening breast examination Z12.39 [place] [address] [address] Sep, Dysuria R30.0 and Cystitis without hemat uria N30.90 [place] [address] [address] Sep, Essential hypertension I10 and Neurofora ingrid stenosis of spine M99.89 [place] [address] [address] Sep, Abnormal glucose R73.09 [place] [address] [address] August, Lateral epicondylitis, right elbow M77.1 1 [place] [address] [address] August, Screen for STD (sexually transmitted dis ease) Z11.3 [place] [address] [address] August, Neuroforaminal stenosis of spine M99.89 ; Mixed hyperlipidemia E78.2 ; Elevated fasting glucose R73.01 ; Screening mammogram, encounter for Z12.31 and Encounter for well woman exam without gynecological exam Z00.00 [place] [address] [address] August, Neuroforaminal stenosis of spine M99.89 [place] [address] [address] August, Essential hypertension I10 ; Hypokalemia E87.6 and Mixed hyperlipidemia E78.2 [place] [address] [address] Jul, [place] [address] [address] Jul, Neuroforaminal stenosis of spine M99.89 [place] [address] [address] Jul, Lateral epicondylitis, right elbow M77.1 1 [place] [address] [address] Jul, [place] [address] [address] Jun, High ankle sprain of right lower extremi ty, initial encounter S93.431A [place] [address] [address] Jun, Essential hypertension I10 [place] [address] [address] Jun, [place] [address] [address] Jun, [place] [address] [address] Jun, Neuroforaminal stenosis of spine M99.89 [place] [address] [address] Jun, Pain of right upper extremity M79.601 an d Essential hypertension I10 [place] [address] [address] Jun, [place] [address] [address] Jun, Dysuria R30.0 ; Acute cystitis with keturah turia N30.01 and Screen for STD (sexually transmitted disease) Z11.3 [place] [address] [address] May, Chronic pain due to trauma G89.21 [place] [address] [address] May, Essential hypertension I10 [address] [address] May, Neuroforaminal stenosis of spine M99.[address] [address] Apr, Allergic reaction, initial encounter T78 .40XA [address] [address] Apr, Low back pain, unspecified back pain lat erality, unspecified chronicity, with sciatica presence unspecified M54.5 ; Acute cystitis with hematuria N30.01 ; Neuroforaminal stenosis of spine M99.89 ; Bilateral acute serous otitis media, recurrence not specified H65.03 ; Mixed hyperlipidemia E78.2 ; Essential hypertension I10 ; Immunization counseling Z71.89 and Encounter for immunization Z23 [place] [address] [address] Apr, Neck pain M54.[address] [address] Mar, Neuroforaminal stenosis of spine M99.[address] [address] Mar, Pharyngitis due to other organism J02.8 [facility] [place] [address] [address] Feb, Neuroforaminal stenosis of spine M99.89 [facility] [place] [address] [address] Feb, UTI (urinary tract infection) N39.0 [facility] [place] [address] [address] 07 Feb, 2017 Recent urinary tract infection Z87.440 ; Neuroforaminal stenosis of spine M99.89 ; Neck pain M54.2 ; Chronic pain due to trauma G89.21 and Recurrent UTI N39.0 [place] [address] [address] Feb, [place] [address] [address] Jan, Neuroforaminal stenosis of spine M99.89 [place] [address] [address] Dec, Neuroforaminal stenosis of spine M99.89 [place] [address] [address] Dec, Acute seasonal allergic rhinitis due to pollen J30.1 [place] [address] [address] Dec, [place] [address] [address] Dec, Acute seasonal allergic rhinitis, unspec ified trigger J30.2 ; Allergic conjunctivitis of both eyes H10.13 and Dysfunction of both eustachian tubes H69.83 [place] [address] [address] Dec, [place] [address] [address] Dec, Nevus D22.9 [facility] [place] [address] [address] Nov, Chronic pain due to trauma G89.21 and Ne uroforaminal stenosis of spine M99.89 [place] [address] [address] Nov, Neuroforaminal stenosis of spine M99.89 ; Essential hypertension I10 ; Mixed hyperlipidemia E78.2 ; Hypokalemia E87.6 ; Neck pain M54.2 and Nevus D22.9 [facility] [place] [address] [address] Oct, Neuroforaminal stenosis of spine M99.89 [place] [address] [address] Sep, Neuroforaminal stenosis of spine M99.89 [place] [address] [address] Sep, [place] [address] [address] August, [place] [address] [address] August, Neck pain M54.2 and Neuroforaminal steno sis of spine M99.89 [place] [address] [address] August, Routine gynecological examination Z01.41 9 and Screening breast examination Z12.39 [place] [address] [address] Jul, [place] [address] [address] Jul, [facility] [place] [address] [address] Jul, Neuroforaminal stenosis of spine M99.89 [facility] [place] [address] [address] Jul, [facility] [place] [address] [address] Jul, 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 [place] [address] [address] Jul, [place] [address] [address] Jul, [place] [address] [address] Jun, Neuroforaminal stenosis of spine M99.89 [place] [address] [address] Jun, Uterine leiomyoma, unspecified location D25.9 and Allergic reaction caused by a drug, initial encounter T78.40XA [place] [address] [address] Jun, [place] [address] [address] May, UTI symptoms R39.9 and Pain of right sac roiliac joint M53.3 [place] [address] [address] May, Neuroforaminal stenosis of spine M99.89 [place] [address] [address] May, [place] [address] [address] May, Acute mucoid otitis media of left ear H6 5.112 and Acute non-recurrent maxillary sinusitis J01.00 [place] [address] [address] May, Acute bacterial conjunctivitis of both e yes H10.33 ; Left arm pain M79.602 and Hypokalemia E87.6 [place] [address] [address] Apr, [place] [address] [address] Apr, Neuroforaminal stenosis of spine M99.89 ; Neck pain M54.2 ; Chronic pain due to trauma G89.21 ; Mixed hyperlipidemia E78.2 ; Essential hypertension I10 and Hypokalemia E87.6 [place] [address] [address] Mar, Oral candidiasis B37.0 ; Neuroforaminal stenosis of spine M99.89 ; Neck pain M54.2 and Chronic pain due to trauma G89.21 [place] [address] [address] Feb, [place] [address] [address] Feb, [place] [address] [address] Feb, UTI (urinary tract infection) N39.0 [place] [address] [address] Feb, Dysuria R30.0 [place] [address] [address] Feb, Dysuria R30.0 [place] [address] [address] Feb, Neuroforaminal stenosis of spine M99.89 ; Neck pain M54.2 ; Essential hypertension I10 ; Chronic pain due to trauma G89.21 ; Dysuria R30.0 ; Abnormal MRI, shoulder R93.8 and Acute cystitis without hematuria N30.00 [place] [address] [address] Jan, [place] [address] [address] Jan, [place] [address] [address] Jan, [place] [address] [address] Jan, Abnormal MRI R93.8 [place] [address] [id number] [place] [address] 29 Dec, 2015 [facility] [address] [facility] [id number] [place] [address] 15 Dec, 2015 Acute pain of left shoulder M25.512 [facility] [place] [address] [id number] [place] [address] 09 Dec, 2015 [facility] [place] [address] [address] 08 Dec, 2015 [facility] [place] [address] [place] [id number] [place] [address] 07 Dec, 2015 Acute pain of left shoulder M25.512 [facility] [place] [address] [address] 23 Nov, 2015 [facility] [place] [address] [address] 16 Nov, 2015 Neuroforaminal stenosis of spine M99.89 ; Neck pain M54.2 ; Abnormal mammogram R92.8 ; Essential hypertension I10 and Chronic pain due to trauma G89.21 [facility] [place] [address] [place] [id number] [place] [address] Nov, [facility] [place] [address] [place] [id number] [place] [address] Oct, Acute stress disorder F43.0 [facility] [place] [address] [place] [id number] [place] [address] Oct, [facility] [place] [address] [place] [id number] [place] [address] Oct, [facility] [place] [address] [place] [id number] [place] [address] 05 Oct, 2015 [facility] [place] [address] [place] [id number] [place] [address] 15 Sep, 2015 [facility] [place] [address] [place] [id number] [place] [address] August, [facility] [place] [address] [address] Jul, Neuroforaminal stenosis of spine M99.89 ; Neck pain M54.2 ; Abnormal mammogram R92.8 and Essential hypertension I10 [facility] [place] [address] [address] Jul, [facility] [place] [address] [address] Jul, [facility] [place] [address] [address] Jul, Abnormal mammogram R92.8 [facility] [place] [address] [address] Jul, [facility] [place] [address] [address] Jul, UTI (urinary tract infection) N39.0 [facility] [place] [address] [address] Jul, Dysuria R30.0 [facility] [place] [address] [address] Jun, [facility] [place] [address] [address] Jun, [facility] [place] [address] [address] Jun, Hypokalemia E87.6 and Hematuria R31.9 [facility] [place] [address] [address] Jun, Hypokalemia E87.6 [facility] [place] [address] [address] Jun, [facility] [place] [address] [address] Jun, Hypokalemia E87.6 [facility] [place] [address] [address] Jun, Hypokalemia E87.6 [place] [address] [address] 15 Jun, 2015 Neuroforaminal stenosis of spine M99.89 ; Hypokalemia E87.6 ; Neck pain M54.2 ; Essential hypertension I10 ; Mixed hyperlipidemia E78.2 and Screening breast examination Z12.[address] [address] 08 Jun, 2015 Dysuria R30.0 ; UTI (urinary tract infec tion) N39.0 and Hematuria R31.[address] [address] May, [address] [address] 18 May, 2015 High risk sexual behavior Z72.51 ; Hypok alemia E87.6 ; Neuroforaminal stenosis of spine M99.89 ; Neck pain M54.2 ; Essential hypertension I10 ; Mixed hyperlipidemia E78.2 ; STD exposure Z20.2 and Concern about STD in female without diagnosis Z71.[address] [address] 16 May, 2015 Neuroforaminal stenosis of spine M99.89 ; Neck pain M54.2 ; Hypokalemia E87.6 ; Essential hypertension I10 and Mixed hyperlipidemia E78.[address] [address] 11 May, 2015 [facility] [address] [facility] [id number] [place] [address] 08 May, 2015 High risk sexual behavior Z7 2.51 ; STD exposure Z20.2 and Concern about STD in female without diagnosis Z71.[address] [address] 05 May, [address] [address] Apr, Neuroforaminal stenosis of spine M99.89 ; Mixed hyperlipidemia E78.2 ; Essential hypertension I10 and Hypokalemia E87.6 [place] [address] [address] Mar, [place] [address] [address] Mar, Hypokalemia E87.6 [place] [address] [address] Mar, Neuroforaminal stenosis of spine M99.89 ; Mixed hyperlipidemia E78.2 ; Neck pain M54.2 ; Essential hypertension I10 ; Abnormal fasting glucose R73.09 ; Hypokalemia E87.6 and Constipation K59.00 [place] [address] [address] Feb, Neuroforaminal stenosis of spine M99.89 ; Mixed hyperlipidemia E78.2 ; Neck pain M54.2 ; Essential hypertension I10 ; Abnormal fasting glucose R73.09 ; Hypokalemia E87.6 and Constipation K59.00 [place] [address] [address] Feb, Elevated fasting blood sugar R73.01 [place] [address] [address] Feb, Elevated fasting blood sugar R73.01 [place] [address] [address] Feb, Hair loss L65.9 [place] [address] [address] Feb, Sinusitis J32.9 ; Essential hypertension I10 and Hair loss L65.9 [place] [address] [address] Jan, [place] [address] [address] Jan, Essential hypertension I10 ; Neuroforami nal stenosis of spine M99.89 ; Neck pain M54.2 ; Mixed hyperlipidemia E78.2 and Anxiety F41.9 [place] [address] [address] Jan, [place] [address] [address] Jan, Mixed hyperlipidemia E78.2 ; Essential ( primary) hypertension I10 ; Strain of muscle, fascia and tendon at neck level, subsequent encounter S16.1XXD and Tension-type headache, unspecified, not intractable G44.209 [place] [address] [address] Dec, Lumbar back pain 724.2 and Neuroforamina l stenosis of spine 724.[address] [address] Nov, [address] [address] Nov, Lumbar back pain 724.2 and Neuroforamina l stenosis of spine 724.00 [place] [address] [address] Nov, Edema 782.3 ; Lumbar back pain 724.2 ; E ssential hypertension, benign 401.1 ; Hyperlipemia 272.4 ; Neuroforaminal stenosis of spine 724.00 and Post- concussion headache 339.20 [place] [address] [address] Nov, [place] [address] [address] Nov, [place] [address] [address] Oct, Essential hypertension, benign 401.[address] [address] Oct, Edema 782.3 ; Lumbar back pain 724.2 ; E ssential hypertension, benign 401.1 ; Hyperlipemia 272.4 ; Neuroforaminal stenosis of spine 724.00 and Post- concussion headache 339.20 [facility] [place] [address] [id number] [place] [address] Oct, [facility] [place] [address] [address] Oct, Edema 782.3 [facility] [place] [id number] [place] [address] Oct, Lumbar back pain 724.2 [facility] [place] [address] [address] Oct, Cervicalgia 723.1 ; Lumbar back pain 724 .2 and High risk medication use V58.69 [facility] [place] [address] [address] Sep, [facility] [place] [address] [address] Sep, Lumbar strain 847.2 [facility] [place] [id number] [place] [address] August, Edema 782.3 and Eustachian tube dysfunct ion 381.81 [facility] [place] [id number] [place] [address] August, [facility] [place] [address] [address] August, Eustachian tube dysfunction 381.81 [facility] [place] [id number] [place] [address] Jul, Otalgia 388.70 and Otitis media 382.9 [facility] [place] [id number] [place] [address] Jul, [facility] [place] [address] [address] Jul, [facility] [place] [id number] [place] [address] Jul, [facility] [place] [address] [address] Jul, [facility] [place] [facility] [address] [id number] [place] [address] 13 Jul, 2014 [facility] [place] [facility] [address] [id number] [facility] [place] [address] 27 Jun, 2014 [facility] [place] [facility] [address] [id number] [place] [address] 27 Jun, 2014 [facility] [place] [facility] [address] [id number] [place] [address] 16 Jun, 2014 [facility] [place] [facility] [address] [id number] [facility] [place] [address] May, [facility] [place] [facility] [address] [id number] [place] [address] May, [facility] [place] [facility] [address] [id number] [place] [address] May, [facility] [place] [facility] [address] [id number] [place] [address] May, [facility] [place] [facility] [address] [id number] [place] [address] May, 2014 [facility] [place] [facility] [address] [id number] [place] [address] May, [facility] [place] [facility] [address] [id number] [place] [address] May, [facility] [place] [facility] [address] [id number] [place] [address] May, [facility] [place] [facility] [address] [id number] [place] [address] May, [facility] [place] [facility] [address] [id number] [place] [address] May, [facility] [place] [facility] [address] [id number] [place] [address] Apr, [facility] [place] [facility] [address] [id number] [place] [address] Apr, [facility] [place] [facility] [address] [id number] [place] [address] Apr, [facility] [place] [facility] [address] [facility] [id number] [place] [address] Apr, [facility] [place] [facility] [address] [id number] [place] [address] Apr, [facility] [place] [facility] [address] [id number] [place] [address] Apr, [facility] [place] [facility] [address] [id number] [place] [address] Apr, [facility] [place] [facility] [address] [id number] [place] [address] Apr, [facility] [place] [facility] [address] [id number] [place] [address] Apr, [facility] [place] [facility] [address] [id number] [place] [address] Apr, [facility] [place] [facility] [address] [id number] [place] [address] Apr, [facility] [place] [facility] [address] [id number] [place] [address] Apr, [facility] [place] [facility] [address] [id number] [place] [address] Apr, [facility] [place] [facility] [address] [id number] [place] [address] Apr, [facility] [place] [facility] [address] [id number] [place] [address] Apr, [facility] [place] [facility] [address] [facility] [id number] [place] [address] Mar, [facility] [place] [facility] [address] [id number] [place] [address] Mar, [facility] [place] [facility] [address] [id number] [place] [address] Mar, [facility] [place] [facility] [address] [id number] [place] [address] Mar, [facility] [place] [facility] [address] [id number] [place] [address] Feb, [facility] [place] [facility] [address] [id number] [place] [address] Feb, [facility] [place] [facility] [address] [id number] [place] [address] Feb, [facility] [place] [facility] [address] [id number] [place] [address] Feb, [facility] [place] [facility] [address] [id number] [place] [address] Jan, [facility] [place] [facility] [address] [id number] [place] [address] Jan, [facility] [place] [facility] [address] [id number] [place] [address] Jan, [facility] [place] [facility] [address] [id number] [place] [address] Jan, [facility] [place] [facility] [address] [id number] [place] [address] Jan, [facility] [place] [facility] [address] [id number] [place] [address] Jan, [facility] [place] [facility] [address] [id number] [place] [address] Jan, [facility] [place] [facility] [address] [id number] [place] [address] Jan, [facility] [place] [facility] [address] [id number] [place] [address] Dec, 2013 [facility] [place] [facility] [address] [id number] [place] [address] 29 Sep, 2013 [facility] [place] [facility] [address] [id number] [place] [address] Sep, 2013 [facility] [place] [facility] [address] [id number] [place] [address] 04 Sep, 2013 [facility] [place] [facility] [address] [id number] [place] [address] 14 Oct, 2013 [facility] [place] [facility] [address] [facility] [id number] [facility] [place] [address] 14 Oct, 2013 [facility] [place] [facility] [address] [facility] [id number] [place] [address] Oct, 2013 [facility] [place] [facility] [address] [facility] [id number] [facility] [place] [address] Oct, 2013 [facility] [place] [facility] [address] [facility] [id number] [place] [address] Oct, 2013 [facility] [place] [facility] [address] [facility] [id number] [place] [address] Oct, 2013 [facility] [place] [facility] [address] [facility] [id number] [place] [address] Oct, 2013 [facility] [place] [facility] [address] [id number] [facility] [place] [address] Oct, 2013 [facility] [place] [facility] [address] [id number] [facility] [place] [address] Sep, [facility] [place] [facility] [address] [facility] [id number] [facility] [place] [address] Sep, [facility] [place] [facility] [address] [id number] [facility] [place] [address] Sep, [facility] [place] [facility] [address] [id number] [facility] [place] [address] Sep, [facility] [place] [facility] [address] [id number] [facility] [place] [address] Sep, [facility] [place] [facility] [address] [facility] [id number] [place] [address] Sep, [facility] [place] [facility] [address] [facility] [id number] [facility] [place] [address] Sep, [facility] [place] [facility] [address] [facility] [id number] [facility] [place] [address] Sep, [facility] [place] [facility] [address] [id number] [facility] [place] [address] Sep, [facility] [place] [facility] [address] [id number] [place] [address] Sep, [facility] [place] [facility] [address] [facility] [id number] [place] [address] August, [facility] [place] [facility] [address] [facility] [id number] [place] [address] August, [facility] [place] [facility] [address] [id number] [place] [address] August, [facility] [place] [facility] [address] [id number] [place] [address] August, [facility] [place] [facility] [address] [id number] [place] [address] August, [facility] [place] [facility] [address] [id number] [place] [address] August, [facility] [place] [facility] [address] [id number] [place] [address] August, [facility] [place] [facility] [address] [id number] [place] [address] August, [facility] [place] [facility] [address] [id number] [place] [address] August, [facility] [place] [facility] [address] [id number] [place] [address] August, [facility] [place] [facility] [address] [id number] [place] [address] August, [facility] [place] [facility] [address] [id number] [place] [address] August, [facility] [place] [facility] [address] [id number] [place] [address] Jul, [facility] [place] [facility] [address] [id number] [place] [address] Jul, [facility] [place] [facility] [address] [id number] [place] [address] Jul, [facility] [place] [facility] [address] [id number] [place] [address] Jul, [facility] [place] [facility] [address] [id number] [place] [address] Jul, [facility] [place] [facility] [address] [id number] [place] [address] Jul, [facility] [place] [facility] [address] [id number] [place] [address] Jun, [facility] [place] [facility] [address] [id number] [place] [address] Jun, [facility] [place] [facility] [address] [id number] [place] [address] May, [facility] [place] [facility] [address] [id number] [place] [address] May, [facility] [place] [facility] [address] [id number] [place] [address] Apr, [facility] [place] [facility] [address] [id number] [place] [address] Apr, [facility] [place] [facility] [address] [id number] [place] [address] Apr, [facility] [place] [facility] [address] [id number] [place] [address] Apr, [facility] [place] [facility] [address] [id number] [place] [address] Apr, [facility] [place] [facility] [address] [id number] [place] [address] Apr, [facility] [place] [facility] [address] [id number] [place] [address] Apr, [facility] [place] [facility] [address] [id number] [place] [address] Apr, [facility] [place] [facility] [address] [id number] [place] [address] Apr, [facility] [place] [facility] [address] [id number] [place] [address] Apr, [facility] [place] [facility] [address] [id number] [place] [address] Apr, [facility] [place] [facility] [address] [id number] [place] [address] Apr, [facility] [place] [facility] [address] [id number] [place] [address] Apr, [facility] [place] [facility] [address] [id number] [place] [address] Mar, [facility] [place] [facility] [address] [id number] [place] [address] Mar, [facility] [place] [facility] [address] [id number] [place] [address] Mar, [facility] [place] [facility] [address] [id number] [place] [address] Mar, [facility] [place] [facility] [address] [id number] [place] [address] Feb, [facility] [place] [facility] [address] [id number] [place] [address] Feb, [facility] [place] [facility] [address] [id number] [place] [address] Feb, [facility] [place] [facility] [address] [id number] [place] [address] 08 Feb, 2013 [facility] [place] [facility] [address] [id number] [place] [address] 14 Jan, 2013 [facility] [place] [facility] [address] [id number] [place] [address] 14 Jan, 2013 [facility] [place] [facility] [address] [id number] [place] [address] 11 Jan, 2013 [facility] [place] [facility] [address] [id number] [place] [address] 11 Jan, 2013 [facility] [place] [facility] [address] [id number] [place] [address] 10 Jan, 2013 [facility] [place] [facility] [address] [id number] [place] [address] 10 Jan, 2013 [facility] [place] [facility] [address] [id number] [place] [address] Jan, [facility] [place] [facility] [address] [id number] [place] [address] Jan, [facility] [place] [facility] [address] [id number] [place] [address] Jan, [facility] [place] [facility] [address] [id number] [place] [address] Dec, [facility] [place] [facility] [address] [id number] [place] [address] Dec, [facility] [place] [facility] [address] [id number] [place] [address] Dec, [facility] [place] [facility] [address] [id number] [place] [address] Dec, [facility] [place] [facility] [address] [id number] [place] [address] Nov, [facility] [place] [facility] [address] [id number] [place] [address] Nov, [facility] [place] [facility] [address] [id number] [place] [address] Nov, [facility] [place] [facility] [address] [id number] [place] [address] Nov, [facility] [place] [facility] [address] [id number] [place] [address] Oct, [facility] [place] [facility] [address] [id number] [place] [address] Sep, [facility] [place] [facility] [address] [id number] [place] [address] August, [facility] [place] [facility] [address] [id number] [place] [address] August, [facility] [place] [facility] [address] [id number] [place] [address] August, [facility] [place] [facility] [address] [id number] [place] [address] August, [facility] [address] [id number] [place] [address] August, [facility] [place] [facility] [address] [id number] [place] [address] August, [facility] [place] [facility] [address] [id number] [place] [address] August, [facility] [place] [facility] [address] [id number] [place] [address] August, [facility] [place] [facility] [address] [facility] [id number] [place] [address] August, [facility] [place] [facility] [address] [id number] [place] [address] August, [facility] [place] [facility] [address] [id number] [place] [address] August, [facility] [place] [facility] [address] [id number] [place] [address] August, [facility] [place] [facility] [address] [id number] [place] [address] Jul, [facility] [place] [facility] [address] [id number] [place] [address] Jul, [facility] [place] [facility] [address] [id number] [place] [address] 18 Jul, 2012 [facility] [place] [facility] [address] [id number] [place] [address] Jul, [facility] [place] [facility] [address] [id number] [place] [address] Jul, [facility] [place] [facility] [address] [id number] [place] [address] Jul, [facility] [place] [facility] [address] [id number] [place] [address] 04 Jul, 2012 [facility] [place] [facility] [address] [id number] [place] [address] Jul, [facility] [place] [facility] [address] [id number] [facility] [place] [address] Jul, [facility] [place] [facility] [address] [facility] [id number] [facility] [place] [address] Jul, [facility] [place] [facility] [address] [id number] [place] [address] Jul, [facility] [place] [facility] [address] [id number] [place] [address] Jun, [facility] [place] [facility] [address] [id number] [place] [address] Jun, [facility] [place] [facility] [address] [id number] [place] [address] Jun, [facility] [place] [facility] [address] [id number] [place] [address] Jun, [facility] [place] [facility] [address] [id number] [place] [address] May, [facility] [place] [facility] [address] [id number] [place] [address] May, [facility] [place] [facility] [address] [id number] [place] [address] May, [facility] [place] [facility] [address] [id number] [place] [address] May, [facility] [place] [facility] [address] [id number] [place] [address] May, [facility] [place] [facility] [address] [id number] [place] [address] May, [facility] [place] [facility] [address] [id number] [place] [address] Apr, [facility] [place] [facility] [address] [id number] [place] [address] Apr, [facility] [place] [facility] [address] [id number] [place] [address] Apr, [facility] [place] [facility] [address] [id number] [place] [address] Apr, [facility] [place] [facility] [address] [id number] [place] [address] 15 Mar, 2012 [facility] [place] [facility] [address] [id number] [place] [address] Mar, [facility] [place] [facility] [address] [id number] [place] [address] Mar, [facility] [place] [facility] [address] [id number] [place] [address] Mar, [facility] [place] [facility] [address] [id number] [place] [address] Mar, [facility] [address] [id number] [place] [address] Mar, [facility] [address] [id number] [place] [address] Mar, [facility] [address] [id number] [place] [address] Feb, [facility] [address] [id number] [place] [address] Feb, [facility] [address] [id number] [place] [address] Feb, [facility] [address] [id number] [place] [address] Feb, [facility] [address] [id number] [place] [address] Jan, [facility] [address] [id number] [place] [address] Jan, [facility] [address] [id number] [place] [address] Jan, [facility] [address] [id number] [place] [address] Jan, [facility] [address] [id number] [place] [address] Jan, [facility] [address] [id number] [place] [address] Jan, [facility] [address] [id number] [place] [address] Dec, [facility] [address] [id number] [place] [address] Dec, [facility] [address] [id number] [place] [address] Nov, [facility] [address] [id number] [place] [address] Sep, [facility] [address] [id number] [place] [address] August, [facility] [address] [id number] [place] [address] August, [facility] [address] [id number] [place] [address] August, [facility] [address] [id number] [place] [address] August, [facility] [address] [id number] [place] [address] August, [facility] [address] [id number] [place] [address] Jun, [facility] [address] [id number] [place] [address] Jun, [facility] [address] [id number] [place] [address] Apr, [facility] [address] [id number] [place] [address] Apr, [facility] [address] [id number] [place] [address] Mar, [facility] [address] [id number] [place] [address] Feb, [facility] [address] [id number] [place] [address] Feb, [facility] [id number] [place] [address] 14 Feb, 2011 [facility] [place] [address] [address] 17 Jan, 2011 [facility] [place] [address] [address] 15 Jan, 2011 [facility] [place] [address] [address] 15 Jan, 2011 [facility] [place] [address] [address] 14 Jan, 2011 [facility] [place] [address] [address] May, [facility] [place] [address] [address] Mar, [facility] [place] [address] [address] Oct, [facility] [place] [address] [address] Sep, [facility] [place] [address] [address] Mar, [facility] [place] [address] [address] Jan, [facility] [place] [address] [address] Jan, [facility] [place] [address] [address] May, IMMUNIZATIONS No Known Immunizations SOCIAL HISTORY [...]
--- OUTSIDE RECORDS SUMMARY | 2019-11-23 06:21 | XMS REPORT ---
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 Active [id number] Problem Neck pain M54.2 Active 42821933 Problem Chronic pain due to trauma G89.21 Act juanis [id number] Problem Hematuria, unspecified type R31.9 Ac tive 74769594 Problem Seasonal allergies J30.2 Active 4 59004716 Problem Abnormal glucose R73.09 Active 102 074321 Problem Anxiety F41.9 Active 46583668 Problem Essential hypertension I10 Active 36807115 Problem Mixed hyperlipidemia E78.2 Active 78658108 Problem Hypokalemia E87.6 Active [id number] ALLERGIES No Information ENCOUNTERS Encounter Location Date Diagnosis [place] [address] [address] 14 May, 2019 Lateral epicondylitis of left elbow M77. 12 [place] [address] [address] Apr, Neuroforaminal stenosis of spine M99.89 [place] [address] [address] Apr, Essential hypertension I10 and Mixed hyp erlipidemia E78.2 [place] [address] [address] Mar, Neuroforaminal stenosis of spine M99.89 [place] [address] [address] Mar, Epicondylitis, lateral, left M77.12 [facility] [address] [address] Mar, [place] [address] [address] Mar, Neuroforaminal stenosis of spine M99.89 [place] [address] [address] Feb, Neuroforaminal stenosis of spine M99.89 ; Essential hypertension I10 ; Mixed hyperlipidemia E78.2 ; Encounter for immunization Z23 and Seasonal allergies J30.2 [place] [address] [address] Jan, Neuroforaminal stenosis of spine M99.89 [place] [address] [address] Dec, Neuroforaminal stenosis of spine M99.89 [place] [address] [address] Dec, Neuroforaminal stenosis of spine M99.89 [place] [address] [address] Nov, [place] [address] [address] Nov, Neuroforaminal stenosis of spine M99.89 [place] [address] [address] Nov, Acute non-recurrent maxillary sinusitis J01.00 [facility] [address] [address] Oct, Hypokalemia E87.6 [facility] [address] [facility] [id number] [address] [place] [address] Oct, Wasp sting, undetermined int ent, initial encounter T63.464A and Cellulitis of left lower extremity L03.116 [place] [address] [address] Oct, Neuroforaminal stenosis of spine M99.89 [place] [address] [address] Sep, [place] [address] [address] Sep, [place] [address] [address] Sep, Routine screening for STI (sexually veronica smitted infection) Z11.3 [place] [address] [address] 14 Sep, 2018 Routine screening for STI (sexually veronica smitted infection) Z11.3 ; Well woman exam with routine gynecological exam Z01.419 and Breast cancer screening Z12.39 [place] [address] [address] 10 Sep, 2018 Neuroforaminal stenosis of spine M99.89 [place] [address] [address] August, Neuroforaminal stenosis of spine M99.89 [place] [address] [address] August, Neuroforaminal stenosis of spine M99.89 ; Chronic pain due to trauma G89.21 and Mixed hyperlipidemia E78.[address] [address] Jul, Viral upper respiratory illness J06.9 an d Acute non-recurrent frontal sinusitis J01.10 [place] [address] [address] Jul, Congestion of nasal sinus R09.[address] [address] Jul, Neuroforaminal stenosis of spine M99.89 and Essential hypertension I10 [place] [address] [address] May, Neuroforaminal stenosis of spine M99.89 [facility] [address] [address] May, [facility] [address] [address] May, Congestion of nasal sinus R09.81 [facility] [address] [address] May, [facility] [address] [address] Apr, Neuroforaminal stenosis of spine M99.89 [place] [address] [address] Apr, Neuroforaminal stenosis of spine M99.89 and Chronic pain due to trauma G89.21 [place] [address] [address] Mar, UTI (urinary tract infection) N39.0 [place] [address] [address] 07 Mar, 2018 Vertigo R42 [place] [address] [address] Mar, Neuroforaminal stenosis of spine M99.89 [place] [address] [address] Feb, Extensor tendon disruption M67.89 [place] [address] [address] Feb, Neuroforaminal stenosis of spine M99.89 and High risk medication use Z79.899 [place] [address] [address] Jan, Hypokalemia E87.6 [place] [address] [address] Jan, Flank pain R10.9 and Acute right-sided l ow back pain without sciatica M54.5 [place] [address] [address] Jan, Hypokalemia E87.6 [place] [address] [address] Jan, [place] [address] [address] Jan, URI, acute J06.9 [place] [address] [address] 05 Jan, 2018 Neuroforaminal stenosis of spine M99.89 [place] [address] [address] 13 Dec, 2017 Lateral epicondylitis, right elbow M77.1 1 [place] [address] [address] 11 Dec, 2017 Allergic rhinitis due to pollen, unspeci fied seasonality J30.1 and Allergic conjunctivitis of both eyes H10.13 [place] [address] [address] 10 Dec, 2017 Neuroforaminal stenosis of spine M99.89 [place] [address] [address] 06 Dec, 2017 Mixed hyperlipidemia E78.2 [place] [address] [address] 05 Dec, 2017 Abnormal glucose R73.09 ; Abnormal renal ultrasound R93.429 ; Dysuria R30.0 ; Cystitis without hematuria N30.90 ; Hypokalemia E87.6 ; Mixed hyperlipidemia E78.2 and Hematuria, unspecified type R31.9 [place] [address] [address] Nov, Hypokalemia E87.6 ; Mixed hyperlipidemia E78.2 and Hematuria, unspecified type R31.9 [place] [address] [address] Nov, [place] [address] [address] Nov, Hypokalemia E87.6 [place] [address] [address] Nov, [facility] [address] [address] Nov, Abnormal renal ultrasound R93.429 [place] [address] [address] Nov, Abnormal renal ultrasound R93.429 [place] [address] [address] Nov, Hematuria, unspecified type R31.9 and Ne uroforaminal stenosis of spine M99.89 [place] [address] [address] Nov, Dysuria R30.0 [place] [address] [address] Oct, Lateral epicondylitis, right elbow M77.1 1 [place] [address] [address] Oct, Neuroforaminal stenosis of spine M99.89 ; Visit for TB skin test Z11.1 and Essential hypertension I10 [place] [address] [address] Oct, [place] [address] [address] Oct, Neuroforaminal stenosis of spine M99.89 [place] [address] [address] Oct, Visit for TB skin test Z11.1 [place] [address] [address] 05 Oct, 2017 Cystitis without hematuria N30.90 [place] [address] [address] Sep, Screening breast examination Z12.39 [place] [address] [address] 26 Sep, 2017 Dysuria R30.0 and Cystitis without hemat uria N30.90 [place] [address] [address] 14 Sep, 2017 Essential hypertension I10 and Neurofora ingrid stenosis of spine M99.[address] [address] Sep, Abnormal glucose R73.[address] [address] August, Lateral epicondylitis, right elbow M77.[address] [address] August, Screen for STD (sexually transmitted dis ease) Z11.[address] [address] August, Neuroforaminal stenosis of spine M99.89 ; Mixed hyperlipidemia E78.2 ; Elevated fasting glucose R73.01 ; Screening mammogram, encounter for Z12.31 and Encounter for well woman exam without gynecological exam Z00.[address] [address] August, Neuroforaminal stenosis of spine M99.[address] [address] August, Essential hypertension I10 ; Hypokalemia E87.6 and Mixed hyperlipidemia E78.[address] [address] Jul, [address] [address] Jul, Neuroforaminal stenosis of spine M99.[address] [address] Jul, Lateral epicondylitis, right elbow M77.1 1 [place] [address] [address] Jul, [place] [address] [address] Jun, High ankle sprain of right lower extremi ty, initial encounter S93.431A [place] [address] [address] Jun, Essential hypertension I10 [place] [address] [address] Jun, [place] [address] [address] Jun, [place] [address] [address] Jun, Neuroforaminal stenosis of spine M99.89 [place] [address] [address] Jun, Pain of right upper extremity M79.601 an d Essential hypertension I10 [place] [address] [address] Jun, [place] [address] [address] Jun, Dysuria R30.0 ; Acute cystitis with keturah turia N30.01 and Screen for STD (sexually transmitted disease) Z11.3 [place] [address] [address] May, Chronic pain due to trauma G89.21 [place] [address] [address] May, Essential hypertension I10 [place] [address] [address] May, Neuroforaminal stenosis of spine M99.89 [place] [address] [address] Apr, Allergic reaction, initial encounter T78 .40XA [place] [address] [address] Apr, Low back pain, unspecified back pain lat erality, unspecified chronicity, with sciatica presence unspecified M54.5 ; Acute cystitis with hematuria N30.01 ; Neuroforaminal stenosis of spine M99.89 ; Bilateral acute serous otitis media, recurrence not specified H65.03 ; Mixed hyperlipidemia E78.2 ; Essential hypertension I10 ; Immunization counseling Z71.89 and Encounter for immunization Z23 [place] [address] [address] Apr, Neck pain M54.2 [place] [address] [address] Mar, Neuroforaminal stenosis of spine M99.89 [place] [address] [address] Mar, Pharyngitis due to other organism J02.8 [place] [address] [address] Feb, Neuroforaminal stenosis of spine M99.89 [place] [address] [address] 08 Feb, 2017 UTI (urinary tract infection) N39.0 [place] [address] [address] 07 Feb, 2017 Recent urinary tract infection Z87.440 ; Neuroforaminal stenosis of spine M99.89 ; Neck pain M54.2 ; Chronic pain due to trauma G89.21 and Recurrent UTI N39.0 [place] [address] [address] Feb, [place] [address] [address] Jan, Neuroforaminal stenosis of spine M99.89 [place] [address] [address] Dec, Neuroforaminal stenosis of spine M99.89 [facility] [address] [address] Dec, Acute seasonal allergic rhinitis due to pollen J30.1 [facility] [address] [address] 08 Dec, 2016 [facility] [address] [address] Dec, Acute seasonal allergic rhinitis, unspec ified trigger J30.2 ; Allergic conjunctivitis of both eyes H10.13 and Dysfunction of both eustachian tubes H69.83 [place] [address] [address] Dec, [place] [address] [address] Dec, Nevus D22.9 [place] [address] [address] Nov, Chronic pain due to trauma G89.21 and Ne uroforaminal stenosis of spine M99.89 [place] [address] [address] Nov, Neuroforaminal stenosis of spine M99.89 ; Essential hypertension I10 ; Mixed hyperlipidemia E78.2 ; Hypokalemia E87.6 ; Neck pain M54.2 and Nevus D22.9 [place] [address] [address] Oct, Neuroforaminal stenosis of spine M99.89 [place] [address] [address] Sep, Neuroforaminal stenosis of spine M99.89 [place] [address] [address] Sep, [place] [address] [address] August, [place] [address] [address] August, Neck pain M54.2 and Neuroforaminal steno sis of spine M99.89 [facility] [address] [address] August, Routine gynecological examination Z01.41 9 and Screening breast examination Z12.39 [place] [address] [address] Jul, [facility] [address] [address] Jul, [place] [address] [address] Jul, Neuroforaminal stenosis of spine M99.89 [place] [address] [address] Jul, [place] [address] [address] Jul, 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 [place] [address] [address] Jul, [place] [address] [address] Jul, [place] [address] [address] Jun, Neuroforaminal stenosis of spine M99.89 [place] [address] [address] Jun, Uterine leiomyoma, unspecified location D25.9 and Allergic reaction caused by a drug, initial encounter T78.40XA [place] [address] [address] Jun, [place] [address] [address] May, UTI symptoms R39.9 and Pain of right sac roiliac joint M53.3 [place] [address] [address] May, Neuroforaminal stenosis of spine M99.89 [place] [address] [address] May, [place] [address] [address] May, Acute mucoid otitis media of left ear H6 5.112 and Acute non-recurrent maxillary sinusitis J01.00 [place] [address] [address] May, Acute bacterial conjunctivitis of both e yes H10.33 ; Left arm pain M79.602 and Hypokalemia E87.6 [place] [address] [address] Apr, [place] [address] [address] Apr, Neuroforaminal stenosis of spine M99.89 ; Neck pain M54.2 ; Chronic pain due to trauma G89.21 ; Mixed hyperlipidemia E78.2 ; Essential hypertension I10 and Hypokalemia E87.6 [place] [address] [address] Mar, Oral candidiasis B37.0 ; Neuroforaminal stenosis of spine M99.89 ; Neck pain M54.2 and Chronic pain due to trauma G89.21 [place] [address] [address] Feb, [place] [address] [address] Feb, [place] [address] [address] Feb, UTI (urinary tract infection) N39.0 [place] [address] [address] Feb, Dysuria R30.0 [place] [address] [address] 08 Feb, 2016 Dysuria R30.0 [facility] [address] [address] Feb, Neuroforaminal stenosis of spine M99.89 ; Neck pain M54.2 ; Essential hypertension I10 ; Chronic pain due to trauma G89.21 ; Dysuria R30.0 ; Abnormal MRI, shoulder R93.8 and Acute cystitis without hematuria N30.00 [facility] [address] [address] Jan, [facility] [address] [address] Jan, [facility] [address] [address] Jan, [place] [address] [address] Jan, Abnormal MRI R93.8 [facility] [address] [address] Dec, [facility] [address] [facility] [id number] [address] [place] [address] 15 Dec, 2015 Acute pain of left shoulder M25.512 [facility] [address] [address] 09 Dec, 2015 [facility] [address] [address] 08 Dec, 2015 [facility] [address] [address] 07 Dec, 2015 Acute pain of left shoulder M25.512 [facility] [address] [address] Nov, [facility] [address] [address] 16 Nov, 2015 Neuroforaminal stenosis of spine M99.89 ; Neck pain M54.2 ; Abnormal mammogram R92.8 ; Essential hypertension I10 and Chronic pain due to trauma G89.21 [facility] [address] [address] Nov, [facility] [address] [address] Oct, Acute stress disorder F43.0 [facility] [address] [address] Oct, [facility] [address] [address] Oct, [facility] [address] [address] Oct, [facility] [address] [address] Sep, [facility] [address] [address] August, [facility] [address] [address] Jul, Neuroforaminal stenosis of spine M99.89 ; Neck pain M54.2 ; Abnormal mammogram R92.8 and Essential hypertension I10 [facility] [address] [address] Jul, [facility] [address] [address] Jul, [facility] [address] [address] Jul, Abnormal mammogram R92.8 [facility] [address] [address] Jul, [facility] [address] [address] Jul, UTI (urinary tract infection) N39.0 [facility] [address] [address] Jul, Dysuria R30.0 [place] [address] [place] [id number] [place] [address] Jun, [place] [address] [address] Jun, [place] [address] [address] Jun, Hypokalemia E87.6 and Hematuria R31.9 [place] [address] [address] Jun, Hypokalemia E87.6 [place] [address] [address] Jun, [place] [address] [address] Jun, Hypokalemia E87.6 [place] [address] [address] Jun, Hypokalemia E87.6 [place] [address] [address] Jun, Neuroforaminal stenosis of spine M99.89 ; Hypokalemia E87.6 ; Neck pain M54.2 ; Essential hypertension I10 ; Mixed hyperlipidemia E78.2 and Screening breast examination Z12.39 [place] [address] [address] 08 Jun, 2015 Dysuria R30.0 ; UTI (urinary tract infec tion) N39.0 and Hematuria R31.9 [place] [address] [address] May, [place] [address] [address] 18 May, 2015 High risk sexual behavior Z72.51 ; Hypok alemia E87.6 ; Neuroforaminal stenosis of spine M99.89 ; Neck pain M54.2 ; Essential hypertension I10 ; Mixed hyperlipidemia E78.2 ; STD exposure Z20.2 and Concern about STD in female without diagnosis Z71.1 [facility] [address] [address] 16 May, 2015 Neuroforaminal stenosis of spine M99.89 ; Neck pain M54.2 ; Hypokalemia E87.6 ; Essential hypertension I10 and Mixed hyperlipidemia E78.2 [facility] [address] [address] 11 May, 2015 [facility] [address] [facility] [id number] [address] [address] 08 May, 2015 High risk sexual behavior Z7 2.51 ; STD exposure Z20.2 and Concern about STD in female without diagnosis Z71.1 [place] [address] [address] 05 May, 2015 [facility] [address] [address] Apr, Neuroforaminal stenosis of spine M99.89 ; Mixed hyperlipidemia E78.2 ; Essential hypertension I10 and Hypokalemia E87.6 [place] [address] [address] Mar, [place] [address] [address] Mar, Hypokalemia E87.6 [place] [address] [address] Mar, Neuroforaminal stenosis of spine M99.89 ; Mixed hyperlipidemia E78.2 ; Neck pain M54.2 ; Essential hypertension I10 ; Abnormal fasting glucose R73.09 ; Hypokalemia E87.6 and Constipation K59.00 [place] [address] [address] Feb, Neuroforaminal stenosis of spine M99.89 ; Mixed hyperlipidemia E78.2 ; Neck pain M54.2 ; Essential hypertension I10 ; Abnormal fasting glucose R73.09 ; Hypokalemia E87.6 and Constipation K59.00 [place] [address] [address] Feb, Elevated fasting blood sugar R73.01 [place] [address] [address] Feb, Elevated fasting blood sugar R73.01 [place] [address] [address] Feb, Hair loss L65.9 [place] [address] [address] Feb, Sinusitis J32.9 ; Essential hypertension I10 and Hair loss L65.9 [place] [address] [address] Jan, [address] [address] Jan, Essential hypertension I10 ; Neuroforami nal stenosis of spine M99.89 ; Neck pain M54.2 ; Mixed hyperlipidemia E78.2 and Anxiety F41.9 [place] [address] [address] Jan, [address] [address] Jan, Mixed hyperlipidemia E78.2 ; Essential ( primary) hypertension I10 ; Strain of muscle, fascia and tendon at neck level, subsequent encounter S16.1XXD and Tension-type headache, unspecified, not intractable G44.209 [place] [address] [address] Dec, Lumbar back pain 724.2 and Neuroforamina l stenosis of spine 724.[address] [address] Nov, [address] [address] Nov, Lumbar back pain 724.2 and Neuroforamina l stenosis of spine 724.[address] [id number] [place] [address] Nov, Edema 782.3 ; Lumbar back pain 724.2 ; E ssential hypertension, benign 401.1 ; Hyperlipemia 272.4 ; Neuroforaminal stenosis of spine 724.00 and Post- concussion headache 339.20 [facility] [address] [address] Nov, [place] [address] [address] Nov, [place] [address] [address] Oct, Essential hypertension, benign 401.1 [place] [address] [address] Oct, Edema 782.3 ; Lumbar back pain 724.2 ; E ssential hypertension, benign 401.1 ; Hyperlipemia 272.4 ; Neuroforaminal stenosis of spine 724.00 and Post- concussion headache 339.20 [place] [address] [address] Oct, [place] [address] [address] Oct, Edema 782.3 [place] [address] [address] Oct, Lumbar back pain 724.2 [place] [address] [address] Oct, Cervicalgia 723.1 ; Lumbar back pain 724 .2 and High risk medication use V58.69 [place] [address] [address] Sep, [place] [address] [address] Sep, Lumbar strain 847.2 [place] [address] [address] August, Edema 782.3 and Eustachian tube dysfunct ion 381.81 [facility] [address] [place] [id number] [place] [address] August, [facility] [address] [place] [id number] [place] [address] August, Eustachian tube dysfunction 381.81 [facility] [address] [place] [id number] [place] [address] Jul, Otalgia 388.70 and Otitis media 382.9 [facility] [address] [id number] [place] [address] Jul, [facility] [id number] [place] [address] Jul, [facility] [id number] [place] [address] Jul, [facility] [id number] [place] [address] Jul, [facility] [id number] [place] [address] Jul, [facility] [id number] [place] [address] Jun, [facility] [id number] [place] [address] Jun, [facility] [id number] [place] [address] Jun, [facility] [id number] [place] [address] May, [facility] [id number] [place] [address] May, [facility] [id number] [place] [address] May, [facility] [id number] [place] [address] May, [facility] [address] [id number] [place] [address] May, [facility] [address] [id number] [place] [address] May, 2014 [facility] [address] [id number] [place] [address] May, [facility] [address] [id number] [place] [address] May, [facility] [address] [id number] [place] [address] May, [facility] [address] [id number] [place] [address] May, [facility] [address] [id number] [place] [address] Apr, [facility] [address] [id number] [place] [address] Apr, [facility] [address] [id number] [place] [address] Apr, [facility] [address] [id number] [place] [address] Apr, [facility] [address] [id number] [place] [address] Apr, [facility] [address] [id number] [place] [address] Apr, [facility] [address] [id number] [place] [address] Apr, [facility] [address] [id number] [place] [address] Apr, [facility] [address] [id number] [place] [address] Apr, [facility] [address] [id number] [place] [address] Apr, [facility] [address] [id number] [place] [address] Apr, [facility] [address] [facility] [id number] [place] [address] Apr, [facility] [address] [id number] [place] [address] Apr, [facility] [address] [id number] [place] [address] Apr, [facility] [address] [id number] [place] [address] Apr, [facility] [address] [id number] [place] [address] Mar, [facility] [address] [id number] [place] [address] Mar, [facility] [address] [id number] [place] [address] Mar, [facility] [address] [id number] [place] [address] Mar, [facility] [address] [id number] [place] [address] Feb, [facility] [address] [id number] [place] [address] Feb, [facility] [address] [id number] [place] [address] Feb, [facility] [address] [id number] [place] [address] Feb, [facility] [address] [id number] [place] [address] Jan, [facility] [address] [id number] [place] [address] Jan, [facility] [address] [id number] [place] [address] Jan, [facility] [address] [id number] [place] [address] Jan, [facility] [address] [facility] [id number] [place] [address] Jan, [facility] [address] [facility] [id number] [place] [address] Jan, [facility] [address] [facility] [id number] [place] [address] Jan, [facility] [address] [facility] [id number] [place] [address] Jan, [facility] [address] [facility] [id number] [place] [address] Dec, [facility] [address] [facility] [id number] [place] [address] Dec, [facility] [address] [id number] [place] [address] Dec, [facility] [address] [id number] [place] [address] Dec, [facility] [address] [id number] [place] [address] Oct, [facility] [address] [id number] [place] [address] Oct, [facility] [address] [id number] [place] [address] Oct, [facility] [address] [id number] [place] [address] Oct, 2013 [facility] [address] [id number] [place] [address] Oct, 2013 [facility] [address] [facility] [id number] [place] [address] Oct, 2013 [facility] [address] [id number] [place] [address] Oct, 2013 [facility] [address] [id number] [place] [address] Oct, 2013 [facility] [address] [id number] [place] [address] Sep, [facility] [address] [facility] [id number] [place] [address] Sep, [facility] [address] [id number] [place] [address] Sep, [facility] [address] [id number] [place] [address] Sep, [facility] [address] [id number] [place] [address] Sep, [facility] [address] [facility] [id number] [place] [address] Sep, [facility] [address] [id number] [place] [address] Sep, [facility] [address] [id number] [place] [address] Sep, [facility] [address] [id number] [place] [address] Sep, [facility] [address] [id number] [place] [address] Sep, [facility] [address] [id number] [place] [address] August, [facility] [address] [id number] [place] [address] August, [facility] [address] [id number] [place] [address] August, [facility] [address] [id number] [place] [address] August, [facility] [address] [id number] [place] [address] August, [facility] [address] [id number] [place] [address] August, [facility] [address] [id number] [place] [address] August, [facility] [address] [id number] [place] [address] August, [facility] [address] [facility] [id number] [place] [address] August, [facility] [address] [facility] [id number] [place] [address] August, [facility] [address] [id number] [place] [address] August, [facility] [address] [facility] [id number] [place] [address] August, [facility] [address] [facility] [id number] [place] [address] Jul, [facility] [address] [id number] [place] [address] Jul, [facility] [address] [id number] [place] [address] Jul, [facility] [address] [id number] [place] [address] Jul, [facility] [address] [facility] [id number] [place] [address] Jul, [facility] [address] [id number] [place] [address] Jul, [facility] [address] [id number] [place] [address] Jun, [facility] [address] [id number] [place] [address] Jun, [facility] [address] [facility] [id number] [place] [address] May, [facility] [address] [id number] [place] [address] May, [facility] [address] [facility] [id number] [place] [address] Apr, [facility] [address] [id number] [place] [address] Apr, [facility] [address] [id number] [place] [address] Apr, [facility] [address] [id number] [place] [address] Apr, [facility] [address] [id number] [place] [address] Apr, [facility] [address] [id number] [place] [address] Apr, [facility] [address] [id number] [place] [address] Apr, [facility] [address] [id number] [place] [address] Apr, [facility] [address] [id number] [place] [address] Apr, [facility] [address] [id number] [place] [address] Apr, [facility] [address] [id number] [place] [address] Apr, [facility] [address] [id number] [place] [address] Apr, [facility] [address] [id number] [place] [address] Apr, [facility] [address] [id number] [place] [address] Mar, [facility] [address] [id number] [place] [address] Mar, [facility] [address] [id number] [place] [address] Mar, [facility] [address] [id number] [place] [address] Mar, [facility] [address] [id number] [place] [address] Feb, [facility] [address] [id number] [place] [address] Feb, [facility] [address] [id number] [place] [address] Feb, [facility] [address] [id number] [place] [address] 08 Feb, 2013 [facility] [address] [id number] [place] [address] 14 Jan, 2013 [facility] [address] [id number] [place] [address] 14 Jan, 2013 [facility] [address] [id number] [place] [address] Jan, [facility] [address] [id number] [place] [address] Jan, [facility] [address] [id number] [place] [address] Jan, [facility] [address] [id number] [place] [address] 10 Jan, 2013 [facility] [address] [id number] [place] [address] Jan, [facility] [address] [id number] [place] [address] Jan, [facility] [address] [id number] [place] [address] Jan, [facility] [address] [id number] [place] [address] 26 Dec, 2012 [facility] [address] [id number] [place] [address] 16 Dec, 2012 [facility] [address] [id number] [place] [address] 16 Dec, 2012 [facility] [address] [id number] [place] [address] 13 Dec, 2012 [facility] [address] [id number] [place] [address] 17 Nov, 2012 [facility] [address] [id number] [place] [address] Nov, [facility] [address] [id number] [place] [address] Nov, [facility] [address] [facility] [id number] [place] [address] Nov, [facility] [address] [id number] [place] [address] Oct, [facility] [address] [id number] [place] [address] Sep, [facility] [address] [facility] [id number] [place] [address] August, [facility] [address] [id number] [place] [address] August, [facility] [address] [id number] [place] [address] August, [facility] [address] [id number] [place] [address] August, [facility] [address] [id number] [place] [address] August, [facility] [address] [id number] [place] [address] August, [facility] [address] [id number] [place] [address] August, [facility] [address] [id number] [place] [address] August, [facility] [address] [id number] [place] [address] August, [facility] [address] [id number] [place] [address] August, [facility] [address] [id number] [place] [address] August, [facility] [address] [id number] [place] [address] August, [facility] [address] [id number] [place] [address] 22 Jul, 2012 [facility] [address] [id number] [place] [address] Jul, [facility] [address] [id number] [place] [address] 18 Jul, 2012 [facility] [address] [id number] [place] [address] 15 Jul, 2012 [facility] [address] [id number] [place] [address] Jul, [facility] [address] [id number] [place] [address] Jul, [facility] [address] [id number] [place] [address] Jul, [facility] [address] [id number] [place] [address] Jul, [facility] [address] [id number] [place] [address] Jul, [facility] [address] [id number] [place] [address] Jul, [facility] [address] [id number] [place] [address] Jul, [facility] [address] [id number] [place] [address] Jun, [facility] [address] [id number] [place] [address] Jun, [facility] [address] [id number] [place] [address] Jun, [facility] [address] [id number] [place] [address] Jun, [facility] [address] [id number] [place] [address] 28 May, 2012 [facility] [address] [id number] [place] [address] 14 May, 2012 [facility] [address] [facility] [id number] [place] [address] 05 May, 2012 [facility] [address] [facility] [id number] [place] [address] May, [facility] [address] [id number] [place] [address] May, [facility] [address] [id number] [place] [address] May, [facility] [address] [id number] [place] [address] Apr, [facility] [address] [id number] [place] [address] Apr, [facility] [address] [id number] [place] [address] Apr, [facility] [address] [id number] [place] [address] Apr, [facility] [address] [id number] [place] [address] Mar, [facility] [address] [id number] [place] [address] Mar, [facility] [address] [id number] [place] [address] Mar, [facility] [address] [id number] [place] [address] Mar, [facility] [address] [id number] [place] [address] Mar, [facility] [address] [id number] [place] [address] Mar, [facility] [address] [id number] [place] [address] Mar, [facility] [address] [id number] [place] [address] Feb, [facility] [address] [id number] [place] [address] Feb, [facility] [address] [id number] [place] [address] Feb, [facility] [address] [id number] [place] [address] Feb, [facility] [address] [id number] [place] [address] Jan, [facility] [address] [id number] [place] [address] Jan, [facility] [address] [id number] [place] [address] Jan, [facility] [address] [id number] [place] [address] Jan, [facility] [address] [id number] [place] [address] Jan, [facility] [address] [id number] [place] [address] Jan, [facility] [address] [id number] [place] [address] Dec, [facility] [address] [id number] [place] [address] Dec, [facility] [address] [id number] [place] [address] Nov, [facility] [address] [id number] [place] [address] Sep, [facility] [address] [id number] [place] [address] August, [facility] [address] [id number] [place] [address] August, [facility] [address] [id number] [place] [address] August, [facility] [address] [id number] [place] [address] August, [facility] [address] [id number] [place] [address] August, [facility] [address] [id number] [place] [address] Jun, [facility] [address] [id number] [place] [address] Jun, [facility] [address] [id number] [place] [address] Apr, [facility] [address] [id number] [place] [address] Apr, [facility] [address] [id number] [place] [address] Mar, [facility] [address] [id number] [place] [address] Feb, [facility] [id number] [place] [address] 14 Feb, 2011 [facility] [address] [id number] [place] [address] Feb, [facility] [address] [id number] [place] [address] 17 Jan, 2011 [facility] [address] [id number] [place] [address] 15 Jan, 2011 [facility] [address] [id number] [place] [address] 15 Jan, 2011 [facility] [address] [id number] [place] [address] 14 Jan, 2011 [facility] [address] [id number] [place] [address] 15 May, 2010 [facility] [address] [id number] [place] [address] Mar, [facility] [address] [id number] [place] [address] Oct, [facility] [address] [id number] [place] [address] Sep, [facility] [address] [id number] [place] [address] Mar, [facility] [address] [id number] [place] [address] Jan, [facility] [address] [id number] [place] [address] Jan, [facility] [address] [id number] [place] [address] May, IMMUNIZATIONS No Known Immunizations SOCIAL HISTORY Never Assessed REASON FOR VISIT PLAN OF CARE VITAL SIGNS Height 62 in 2013-08-16 Weight 182.2 lbs 2013-08-16 Temperature 98.3 degrees Fahrenheit 2013-08-16 Heart Rate 84 bpm 2013-08-16 Respiratory Rate 18 2013-08-16 Blood pressure systolic 104 mmHg 2013-08-16 Blood pressure diastolic 70 mmHg 2013-08-16 MEDICATIONS Unknown Medications RESULTS No Results PROCEDURES [...]
--- OUTSIDE RECORDS SUMMARY | 2019-11-23 06:21 | XMS REPORT ---
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 Active 847897294029 Problem Neck pain M54.2 Active 42985942 Problem Chronic pain due to trauma G89.21 Act juanis 570520210 Problem Hematuria, unspecified type R31.9 Ac tive 93044182 Problem Seasonal allergies J30.2 Active 4 74749322 Problem Abnormal glucose R73.09 Active 102 506435 Problem Anxiety F41.9 Active 54326936 Problem Essential hypertension I10 Active 43406234 Problem Mixed hyperlipidemia E78.2 Active 07111526 Problem Hypokalemia E87.6 Active [id number] ALLERGIES No Information ENCOUNTERS Encounter Location Date Diagnosis [place] [address] [address] 14 May, 2019 Lateral epicondylitis of left elbow M77. 12 [place] [address] [address] Apr, Neuroforaminal stenosis of spine M99.89 [place] [address] [address] Apr, Essential hypertension I10 and Mixed hyp erlipidemia E78.2 [place] [address] [address] Mar, Neuroforaminal stenosis of spine M99.89 [place] [address] [address] Mar, Epicondylitis, lateral, left M77.12 [place] [address] [address] Mar, [facility] [address] [address] Mar, Neuroforaminal stenosis of spine M99.89 [facility] [address] [address] Feb, Neuroforaminal stenosis of spine M99.89 ; Essential hypertension I10 ; Mixed hyperlipidemia E78.2 ; Encounter for immunization Z23 and Seasonal allergies J30.2 [place] [address] [address] Jan, Neuroforaminal stenosis of spine M99.89 [place] [address] [address] Dec, Neuroforaminal stenosis of spine M99.89 [place] [address] [address] Dec, Neuroforaminal stenosis of spine M99.89 [place] [address] [address] Nov, [place] [address] [address] Nov, Neuroforaminal stenosis of spine M99.89 [place] [address] [address] Nov, Acute non-recurrent maxillary sinusitis J01.00 [facility] [address] [address] Oct, Hypokalemia E87.6 [facility] [address] [facility] [id number] [address] [place] [address] Oct, Wasp sting, undetermined int ent, initial encounter T63.464A and Cellulitis of left lower extremity L03.116 [facility] [address] [address] Oct, Neuroforaminal stenosis of spine M99.89 [facility] [address] [address] 24 Sep, 2018 [place] [address] [address] Sep, [place] [address] [address] 18 Sep, 2018 Routine screening for STI (sexually veronica smitted infection) Z11.3 [place] [address] [address] 14 Sep, 2018 Routine screening for STI (sexually veronica smitted infection) Z11.3 ; Well woman exam with routine gynecological exam Z01.419 and Breast cancer screening Z12.39 [place] [address] [address] 10 Sep, 2018 Neuroforaminal stenosis of spine M99.[address] [address] August, Neuroforaminal stenosis of spine M99.89 [place] [address] [address] August, Neuroforaminal stenosis of spine M99.89 ; Chronic pain due to trauma G89.21 and Mixed hyperlipidemia E78.2 [place] [address] [address] 16 Jul, 2018 Viral upper respiratory illness J06.9 an d Acute non-recurrent frontal sinusitis J01.10 [place] [address] [address] Jul, Congestion of nasal sinus R09.81 [place] [address] [address] Jul, Neuroforaminal stenosis of spine M99.89 and Essential hypertension I10 [place] [address] [address] May, Neuroforaminal stenosis of spine M99.89 [place] [address] [address] May, [place] [address] [address] May, Congestion of nasal sinus R09.81 [facility] [address] [address] May, [facility] [address] [address] Apr, Neuroforaminal stenosis of spine M99.89 [place] [address] [address] Apr, Neuroforaminal stenosis of spine M99.89 and Chronic pain due to trauma G89.21 [place] [address] [address] Mar, UTI (urinary tract infection) N39.0 [place] [address] [address] Mar, Vertigo R42 [place] [address] [address] Mar, Neuroforaminal stenosis of spine M99.89 [place] [address] [address] Feb, Extensor tendon disruption M67.89 [place] [address] [address] Feb, Neuroforaminal stenosis of spine M99.89 and High risk medication use Z79.899 [place] [address] [address] Jan, Hypokalemia E87.6 [place] [address] [address] Jan, Flank pain R10.9 and Acute right-sided l ow back pain without sciatica M54.5 [place] [address] [address] Jan, Hypokalemia E87.6 [place] [address] [address] Jan, [place] [address] [address] Jan, URI, acute J06.9 [place] [address] [address] 05 Jan, 2018 Neuroforaminal stenosis of spine M99.89 [place] [address] [address] 13 Dec, 2017 Lateral epicondylitis, right elbow M77.1 1 [place] [address] [address] 11 Dec, 2017 Allergic rhinitis due to pollen, unspeci fied seasonality J30.1 and Allergic conjunctivitis of both eyes H10.[address] [address] 10 Dec, 2017 Neuroforaminal stenosis of spine M99.89 [place] [address] [address] Dec, Mixed hyperlipidemia E78.[address] [address] 05 Dec, 2017 Abnormal glucose R73.09 ; Abnormal renal ultrasound R93.429 ; Dysuria R30.0 ; Cystitis without hematuria N30.90 ; Hypokalemia E87.6 ; Mixed hyperlipidemia E78.2 and Hematuria, unspecified type R31.9 [place] [address] [address] Nov, Hypokalemia E87.6 ; Mixed hyperlipidemia E78.2 and Hematuria, unspecified type R31.9 [place] [address] [address] Nov, [place] [address] [address] Nov, Hypokalemia E87.6 [place] [address] [address] Nov, [place] [address] [address] Nov, Abnormal renal ultrasound R93.429 [place] [address] [address] Nov, Abnormal renal ultrasound R93.429 [place] [address] [address] Nov, Hematuria, unspecified type R31.9 and Ne uroforaminal stenosis of spine M99.89 [place] [address] [address] Nov, Dysuria R30.0 [place] [address] [address] Oct, Lateral epicondylitis, right elbow M77.1 1 [place] [address] [address] Oct, Neuroforaminal stenosis of spine M99.89 ; Visit for TB skin test Z11.1 and Essential hypertension I10 [place] [address] [address] Oct, [place] [address] [address] Oct, Neuroforaminal stenosis of spine M99.89 [place] [address] [address] Oct, Visit for TB skin test Z11.1 [place] [address] [address] 05 Oct, 2017 Cystitis without hematuria N30.90 [place] [address] [address] Sep, Screening breast examination Z12.39 [place] [address] [address] Sep, Dysuria R30.0 and Cystitis without hemat uria N30.90 [place] [address] [address] Sep, Essential hypertension I10 and Neurofora ingrid stenosis of spine M99.89 [place] [address] [address] Sep, Abnormal glucose R73.09 [place] [address] [address] August, Lateral epicondylitis, right elbow M77.1 1 [place] [address] [address] August, Screen for STD (sexually transmitted dis ease) Z11.[address] [address] August, Neuroforaminal stenosis of spine M99.89 ; Mixed hyperlipidemia E78.2 ; Elevated fasting glucose R73.01 ; Screening mammogram, encounter for Z12.31 and Encounter for well woman exam without gynecological exam Z00.00 [place] [address] [address] August, Neuroforaminal stenosis of spine M99.89 [place] [address] [address] August, Essential hypertension I10 ; Hypokalemia E87.6 and Mixed hyperlipidemia E78.2 [place] [address] [address] Jul, [place] [address] [address] Jul, Neuroforaminal stenosis of spine M99.89 [place] [address] [address] Jul, Lateral epicondylitis, right elbow M77.1 1 [place] [address] [address] Jul, [place] [address] [address] Jun, High ankle sprain of right lower extremi ty, initial encounter S93.431A [place] [address] [address] Jun, Essential hypertension I10 [place] [address] [address] Jun, [place] [address] [address] Jun, [place] [address] [address] Jun, Neuroforaminal stenosis of spine M99.89 [place] [address] [address] Jun, Pain of right upper extremity M79.601 an d Essential hypertension I10 [place] [address] [address] Jun, [place] [address] [address] Jun, Dysuria R30.0 ; Acute cystitis with keturah turia N30.01 and Screen for STD (sexually transmitted disease) Z11.3 [place] [address] [address] May, Chronic pain due to trauma G89.21 [place] [address] [address] May, Essential hypertension I10 [place] [address] [address] May, Neuroforaminal stenosis of spine M99.89 [place] [address] [address] Apr, Allergic reaction, initial encounter T78 .40XA [place] [address] [address] Apr, Low back pain, unspecified back pain lat erality, unspecified chronicity, with sciatica presence unspecified M54.5 ; Acute cystitis with hematuria N30.01 ; Neuroforaminal stenosis of spine M99.89 ; Bilateral acute serous otitis media, recurrence not specified H65.03 ; Mixed hyperlipidemia E78.2 ; Essential hypertension I10 ; Immunization counseling Z71.89 and Encounter for immunization Z23 [place] [address] [address] 08 Apr, 2017 Neck pain M54.2 [place] [address] [address] Mar, Neuroforaminal stenosis of spine M99.89 [place] [address] [address] Mar, Pharyngitis due to other organism J02.8 [place] [address] [address] Feb, Neuroforaminal stenosis of spine M99.89 [place] [address] [address] 08 Feb, 2017 UTI (urinary tract infection) N39.0 [place] [address] [address] 07 Feb, 2017 Recent urinary tract infection Z87.440 ; Neuroforaminal stenosis of spine M99.89 ; Neck pain M54.2 ; Chronic pain due to trauma G89.21 and Recurrent UTI N39.0 [place] [address] [address] Feb, [place] [address] [address] Jan, Neuroforaminal stenosis of spine M99.89 [place] [address] [address] Dec, Neuroforaminal stenosis of spine M99.89 [place] [address] [address] 18 Dec, 2016 Acute seasonal allergic rhinitis due to pollen J30.1 [place] [address] [address] 08 Dec, 2016 [place] [address] [address] 08 Dec, 2016 Acute seasonal allergic rhinitis, unspec ified trigger J30.2 ; Allergic conjunctivitis of both eyes H10.13 and Dysfunction of both eustachian tubes H69.83 [place] [address] [address] 07 Dec, 2016 [place] [address] [address] Dec, Nevus D22.9 [place] [address] [address] Nov, Chronic pain due to trauma G89.21 and Ne uroforaminal stenosis of spine M99.89 [place] [address] [address] Nov, Neuroforaminal stenosis of spine M99.89 ; Essential hypertension I10 ; Mixed hyperlipidemia E78.2 ; Hypokalemia E87.6 ; Neck pain M54.2 and Nevus D22.9 [place] [address] [address] Oct, Neuroforaminal stenosis of spine M99.89 [place] [address] [address] Sep, Neuroforaminal stenosis of spine M99.89 [place] [address] [address] Sep, [place] [address] [address] August, [place] [address] [address] August, Neck pain M54.2 and Neuroforaminal steno sis of spine M99.89 [facility] [address] [address] August, Routine gynecological examination Z01.41 9 and Screening breast examination Z12.39 [facility] [address] [address] Jul, [facility] [address] [address] Jul, [facility] [address] [address] Jul, Neuroforaminal stenosis of spine M99.89 [facility] [address] [address] Jul, [facility] [address] [address] Jul, 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 [place] [address] [address] Jul, [facility] [address] [address] Jul, [place] [address] [address] Jun, Neuroforaminal stenosis of spine M99.89 [facility] [address] [address] Jun, Uterine leiomyoma, unspecified location D25.9 and Allergic reaction caused by a drug, initial encounter T78.40XA [facility] [address] [address] Jun, [place] [address] [address] May, UTI symptoms R39.9 and Pain of right sac roiliac joint M53.3 [facility] [address] [address] May, Neuroforaminal stenosis of spine M99.89 [place] [address] [address] May, [place] [address] [address] May, Acute mucoid otitis media of left ear H6 5.112 and Acute non-recurrent maxillary sinusitis J01.00 [place] [address] [address] May, Acute bacterial conjunctivitis of both e yes H10.33 ; Left arm pain M79.602 and Hypokalemia E87.6 [place] [address] [address] Apr, [place] [address] [address] Apr, Neuroforaminal stenosis of spine M99.89 ; Neck pain M54.2 ; Chronic pain due to trauma G89.21 ; Mixed hyperlipidemia E78.2 ; Essential hypertension I10 and Hypokalemia E87.6 [place] [address] [address] Mar, Oral candidiasis B37.0 ; Neuroforaminal stenosis of spine M99.89 ; Neck pain M54.2 and Chronic pain due to trauma G89.21 [place] [address] [address] Feb, [place] [address] [address] Feb, [place] [address] [address] Feb, UTI (urinary tract infection) N39.0 [place] [address] [address] Feb, Dysuria R30.0 [place] [address] [address] 08 Feb, 2016 Dysuria R30.0 [facility] [address] [address] Feb, Neuroforaminal stenosis of spine M99.89 ; Neck pain M54.2 ; Essential hypertension I10 ; Chronic pain due to trauma G89.21 ; Dysuria R30.0 ; Abnormal MRI, shoulder R93.8 and Acute cystitis without hematuria N30.00 [facility] [address] [address] Jan, [facility] [address] [address] Jan, [facility] [address] [address] Jan, [facility] [address] [address] Jan, Abnormal MRI R93.8 [facility] [address] [address] Dec, [facility] [address] [facility] [id number] [place] [address] 15 Dec, 2015 Acute pain of left shoulder M25.512 [facility] [address] [address] 09 Dec, 2015 [facility] [address] [address] 08 Dec, 2015 [facility] [address] [address] 07 Dec, 2015 Acute pain of left shoulder M25.512 [facility] [address] [address] Nov, [facility] [address] [address] Nov, Neuroforaminal stenosis of spine M99.89 ; Neck pain M54.2 ; Abnormal mammogram R92.8 ; Essential hypertension I10 and Chronic pain due to trauma G89.21 [facility] [address] [place] [address] Nov, [facility] [address] [place] [id number] [place] [address] Oct, Acute stress disorder F43.0 [facility] [address] [place] [id number] [place] [address] Oct, [facility] [address] [address] Oct, [facility] [address] [address] Oct, [facility] [address] [address] Sep, [facility] [address] [address] August, [facility] [address] [address] Jul, Neuroforaminal stenosis of spine M99.89 ; Neck pain M54.2 ; Abnormal mammogram R92.8 and Essential hypertension I10 [facility] [address] [place] [id number] [place] [address] Jul, [facility] [address] [address] Jul, [facility] [address] [address] Jul, Abnormal mammogram R92.8 [facility] [address] [address] Jul, [facility] [address] [address] Jul, UTI (urinary tract infection) N39.0 [facility] [address] [address] Jul, Dysuria R30.0 [facility] [address] [address] Jun, [place] [address] [address] Jun, [place] [address] [address] Jun, Hypokalemia E87.6 and Hematuria R31.9 [place] [address] [address] Jun, Hypokalemia E87.6 [place] [address] [address] Jun, [place] [address] [address] Jun, Hypokalemia E87.6 [place] [address] [address] Jun, Hypokalemia E87.6 [place] [address] [address] Jun, Neuroforaminal stenosis of spine M99.89 ; Hypokalemia E87.6 ; Neck pain M54.2 ; Essential hypertension I10 ; Mixed hyperlipidemia E78.2 and Screening breast examination Z12.39 [place] [address] [address] 08 Jun, 2015 Dysuria R30.0 ; UTI (urinary tract infec tion) N39.0 and Hematuria R31.9 [place] [address] [address] May, [place] [address] [address] 18 May, 2015 High risk sexual behavior Z72.51 ; Hypok alemia E87.6 ; Neuroforaminal stenosis of spine M99.89 ; Neck pain M54.2 ; Essential hypertension I10 ; Mixed hyperlipidemia E78.2 ; STD exposure Z20.2 and Concern about STD in female without diagnosis Z71.1 [place] [address] [address] 16 May, 2015 Neuroforaminal stenosis of spine M99.89 ; Neck pain M54.2 ; Hypokalemia E87.6 ; Essential hypertension I10 and Mixed hyperlipidemia E78.2 [facility] [address] [place] [id number] [place] [address] 11 May, 2015 [facility] [address] [facility] [id number] [address] [place] [address] 08 May, 2015 High risk sexual behavior Z7 2.51 ; STD exposure Z20.2 and Concern about STD in female without diagnosis Z71.1 [place] [address] [address] May, [place] [address] [address] Apr, Neuroforaminal stenosis of spine M99.89 ; Mixed hyperlipidemia E78.2 ; Essential hypertension I10 and Hypokalemia E87.6 [place] [address] [address] Mar, [place] [address] [address] Mar, Hypokalemia E87.6 [place] [address] [address] Mar, Neuroforaminal stenosis of spine M99.89 ; Mixed hyperlipidemia E78.2 ; Neck pain M54.2 ; Essential hypertension I10 ; Abnormal fasting glucose R73.09 ; Hypokalemia E87.6 and Constipation K59.00 [place] [address] [address] Feb, Neuroforaminal stenosis of spine M99.89 ; Mixed hyperlipidemia E78.2 ; Neck pain M54.2 ; Essential hypertension I10 ; Abnormal fasting glucose R73.09 ; Hypokalemia E87.6 and Constipation K59.00 [place] [address] [address] Feb, Elevated fasting blood sugar R73.01 [place] [address] [address] Feb, Elevated fasting blood sugar R73.01 [place] [address] [address] Feb, Hair loss L65.9 [place] [address] [address] Feb, Sinusitis J32.9 ; Essential hypertension I10 and Hair loss L65.9 [place] [address] [address] Jan, [place] [address] [address] Jan, Essential hypertension I10 ; Neuroforami nal stenosis of spine M99.89 ; Neck pain M54.2 ; Mixed hyperlipidemia E78.2 and Anxiety F41.[address] [address] Jan, [place] [address] [address] Jan, Mixed hyperlipidemia E78.2 ; Essential ( primary) hypertension I10 ; Strain of muscle, fascia and tendon at neck level, subsequent encounter S16.1XXD and Tension-type headache, unspecified, not intractable G44.209 [place] [address] [address] Dec, Lumbar back pain 724.2 and Neuroforamina l stenosis of spine 724.00 [place] [address] [address] Nov, [address] [address] Nov, Lumbar back pain 724.2 and Neuroforamina l stenosis of spine 724.00 [place] [address] [address] Nov, Edema 782.3 ; Lumbar back pain 724.2 ; E ssential hypertension, benign 401.1 ; Hyperlipemia 272.4 ; Neuroforaminal stenosis of spine 724.00 and Post- concussion headache 339.20 [place] [address] [place] [id number] [place] [address] Nov, [facility] [address] [address] Nov, [place] [address] [address] Oct, Essential hypertension, benign 401.1 [place] [address] [address] Oct, Edema 782.3 ; Lumbar back pain 724.2 ; E ssential hypertension, benign 401.1 ; Hyperlipemia 272.4 ; Neuroforaminal stenosis of spine 724.00 and Post- concussion headache 339.20 [place] [address] [address] Oct, [place] [address] [address] Oct, Edema 782.3 [place] [address] [address] Oct, Lumbar back pain 724.2 [place] [address] [address] Oct, Cervicalgia 723.1 ; Lumbar back pain 724 .2 and High risk medication use V58.69 [place] [address] [address] Sep, [place] [address] [address] Sep, Lumbar strain 847.2 [place] [address] [place] [id number] [place] [address] August, Edema 782.3 and Eustachian tube dysfunct ion 381.81 [place] [address] [place] [id number] [place] [address] August, [facility] [address] [id number] [place] [address] August, Eustachian tube dysfunction 381.81 [facility] [address] [id number] [place] [address] 29 Jul, 2014 Otalgia 388.70 and Otitis media 382.9 [facility] [id number] [place] [address] Jul, [facility] [address] [id number] [place] [address] Jul, [facility] [id number] [place] [address] Jul, [facility] [id number] [place] [address] 14 Jul, 2014 [facility] [id number] [place] [address] 13 Jul, 2014 [facility] [id number] [place] [address] Jun, [facility] [id number] [place] [address] 27 Jun, 2014 [facility] [address] [id number] [place] [address] 16 Jun, 2014 [facility] [id number] [place] [address] May, [facility] [address] [id number] [place] [address] May, [facility] [id number] [place] [address] May, [facility] [id number] [place] [address] May, [facility] [id number] [place] [address] May, [facility] [address] [id number] [place] [address] May, [facility] [address] [id number] [place] [address] May, [facility] [address] [id number] [place] [address] May, [facility] [address] [id number] [place] [address] May, [facility] [address] [id number] [place] [address] May, [facility] [address] [id number] [place] [address] Apr, [facility] [address] [id number] [place] [address] Apr, [facility] [address] [id number] [place] [address] Apr, [facility] [address] [id number] [place] [address] Apr, [facility] [address] [id number] [place] [address] Apr, [facility] [address] [id number] [place] [address] Apr, [facility] [address] [id number] [place] [address] Apr, [facility] [address] [id number] [place] [address] Apr, [facility] [address] [id number] [place] [address] Apr, [facility] [address] [id number] [place] [address] Apr, [facility] [address] [id number] [place] [address] Apr, [facility] [address] [id number] [place] [address] Apr, [facility] [address] [facility] [id number] [place] [address] Apr, [facility] [address] [id number] [place] [address] Apr, [facility] [address] [id number] [place] [address] Apr, [facility] [address] [id number] [place] [address] Mar, [facility] [address] [id number] [place] [address] Mar, [facility] [address] [id number] [place] [address] Mar, [facility] [address] [id number] [place] [address] Mar, [facility] [address] [id number] [place] [address] Feb, [facility] [address] [id number] [place] [address] Feb, [facility] [address] [id number] [place] [address] Feb, [facility] [address] [id number] [place] [address] Feb, [facility] [address] [id number] [place] [address] Jan, [facility] [address] [id number] [place] [address] Jan, [facility] [address] [id number] [place] [address] Jan, [facility] [address] [id number] [place] [address] Jan, [facility] [address] [id number] [place] [address] Jan, [facility] [address] [facility] [id number] [place] [address] Jan, [facility] [address] [facility] [id number] [place] [address] Jan, [facility] [address] [facility] [id number] [place] [address] Jan, [facility] [address] [id number] [place] [address] Dec, [facility] [address] [facility] [id number] [place] [address] Dec, [facility] [address] [facility] [id number] [place] [address] Dec, [facility] [address] [id number] [place] [address] Dec, [facility] [address] [id number] [place] [address] Oct, [facility] [address] [id number] [place] [address] Oct, 2013 [facility] [address] [id number] [place] [address] Oct, [facility] [address] [id number] [place] [address] Oct, [facility] [address] [id number] [place] [address] Oct, 2013 [facility] [address] [id number] [place] [address] Oct, 2013 [facility] [address] [id number] [place] [address] Oct, [facility] [address] [id number] [place] [address] Oct, 2013 [facility] [address] [id number] [place] [address] Sep, [facility] [address] [id number] [place] [address] Sep, [facility] [address] [facility] [id number] [place] [address] Sep, [facility] [address] [id number] [place] [address] Sep, [facility] [address] [id number] [place] [address] Sep, [facility] [address] [id number] [place] [address] Sep, [facility] [address] [facility] [id number] [place] [address] Sep, [facility] [address] [id number] [place] [address] Sep, [facility] [address] [id number] [place] [address] Sep, [facility] [address] [id number] [place] [address] Sep, [facility] [address] [id number] [place] [address] August, [facility] [address] [id number] [place] [address] August, [facility] [address] [id number] [place] [address] August, [facility] [address] [id number] [place] [address] August, [facility] [address] [id number] [place] [address] August, [facility] [address] [id number] [place] [address] August, [facility] [address] [id number] [place] [address] August, [facility] [address] [id number] [place] [address] August, [facility] [address] [id number] [place] [address] August, [facility] [address] [facility] [id number] [place] [address] August, [facility] [address] [facility] [id number] [place] [address] August, [facility] [address] [id number] [place] [address] August, [facility] [address] [id number] [place] [address] Jul, [facility] [address] [facility] [id number] [place] [address] Jul, [facility] [address] [id number] [place] [address] Jul, [facility] [address] [id number] [place] [address] Jul, [facility] [address] [id number] [place] [address] Jul, [facility] [address] [id number] [place] [address] Jul, [facility] [address] [id number] [place] [address] Jun, [facility] [address] [id number] [place] [address] Jun, [facility] [address] [id number] [place] [address] May, [facility] [address] [facility] [id number] [place] [address] May, [facility] [address] [id number] [place] [address] Apr, [facility] [address] [id number] [place] [address] Apr, [facility] [address] [id number] [place] [address] Apr, [facility] [address] [id number] [place] [address] Apr, [facility] [address] [id number] [place] [address] Apr, [facility] [address] [id number] [place] [address] Apr, [facility] [address] [id number] [place] [address] Apr, [facility] [address] [id number] [place] [address] Apr, [facility] [address] [id number] [place] [address] Apr, [facility] [address] [id number] [place] [address] Apr, [facility] [address] [id number] [place] [address] Apr, [facility] [address] [id number] [place] [address] Apr, [facility] [address] [id number] [place] [address] Apr, [facility] [address] [id number] [place] [address] Mar, [facility] [address] [id number] [place] [address] Mar, [facility] [address] [id number] [place] [address] Mar, [facility] [address] [id number] [place] [address] Mar, [facility] [address] [id number] [place] [address] Feb, [facility] [address] [id number] [place] [address] Feb, [facility] [address] [id number] [place] [address] Feb, [facility] [address] [id number] [place] [address] 08 Feb, 2013 [facility] [address] [id number] [place] [address] 14 Jan, 2013 [facility] [address] [id number] [place] [address] 14 Jan, 2013 [facility] [address] [id number] [place] [address] 11 Jan, 2013 [facility] [address] [facility] [id number] [place] [address] 11 Jan, 2013 [facility] [address] [id number] [place] [address] 10 Jan, 2013 [facility] [address] [id number] [place] [address] 10 Jan, 2013 [facility] [address] [id number] [place] [address] 09 Jan, 2013 [facility] [address] [id number] [place] [address] 09 Jan, 2013 [facility] [address] [id number] [place] [address] Jan, [facility] [address] [id number] [place] [address] 26 Dec, 2012 [facility] [address] [id number] [place] [address] 16 Dec, 2012 [facility] [address] [id number] [place] [address] 16 Dec, 2012 [facility] [address] [id number] [place] [address] 13 Dec, 2012 [facility] [address] [id number] [place] [address] 17 Nov, 2012 [facility] [address] [id number] [place] [address] Nov, [facility] [address] [id number] [place] [address] Nov, [facility] [address] [facility] [id number] [place] [address] Nov, [facility] [address] [id number] [place] [address] Oct, [facility] [address] [id number] [place] [address] Sep, [facility] [address] [id number] [place] [address] August, [facility] [address] [id number] [place] [address] August, [facility] [address] [id number] [place] [address] August, [facility] [address] [id number] [place] [address] August, [facility] [address] [id number] [place] [address] August, [facility] [address] [id number] [place] [address] August, [facility] [address] [id number] [place] [address] August, [facility] [address] [id number] [place] [address] August, [facility] [address] [id number] [place] [address] August, [facility] [address] [id number] [place] [address] August, [facility] [address] [id number] [place] [address] August, [facility] [address] [id number] [place] [address] August, [facility] [address] [id number] [place] [address] Jul, [facility] [address] [id number] [place] [address] Jul, [facility] [address] [id number] [place] [address] 18 Jul, 2012 [facility] [address] [id number] [place] [address] 15 Jul, 2012 [facility] [address] [id number] [place] [address] Jul, [facility] [address] [id number] [place] [address] Jul, [facility] [address] [id number] [place] [address] Jul, [facility] [address] [id number] [place] [address] Jul, [facility] [address] [id number] [place] [address] Jul, [facility] [address] [id number] [place] [address] Jul, [facility] [address] [id number] [place] [address] Jul, [facility] [address] [id number] [place] [address] Jun, [facility] [address] [id number] [place] [address] Jun, [facility] [address] [id number] [place] [address] Jun, [facility] [address] [id number] [place] [address] Jun, [facility] [address] [id number] [place] [address] 28 May, 2012 [facility] [address] [id number] [place] [address] 14 May, 2012 [facility] [address] [id number] [place] [address] May, [facility] [address] [id number] [place] [address] May, [facility] [address] [id number] [place] [address] May, [facility] [address] [id number] [place] [address] May, [facility] [address] [id number] [place] [address] Apr, [facility] [address] [id number] [place] [address] Apr, [facility] [address] [id number] [place] [address] Apr, [facility] [address] [id number] [place] [address] Apr, [facility] [address] [id number] [place] [address] Mar, [facility] [address] [id number] [place] [address] Mar, [facility] [address] [id number] [place] [address] Mar, [facility] [address] [id number] [place] [address] 14 Mar, 2012 [facility] [address] [id number] [place] [address] Mar, [facility] [address] [id number] [place] [address] Mar, [facility] [address] [id number] [place] [address] Mar, [facility] [address] [id number] [place] [address] Feb, [facility] [address] [id number] [place] [address] Feb, [facility] [address] [id number] [place] [address] Feb, [facility] [address] [id number] [place] [address] Feb, [facility] [address] [id number] [place] [address] Jan, [facility] [address] [id number] [place] [address] Jan, [facility] [address] [id number] [place] [address] Jan, [facility] [address] [id number] [place] [address] Jan, [facility] [address] [id number] [place] [address] Jan, [facility] [address] [id number] [place] [address] Jan, [facility] [address] [id number] [place] [address] Dec, [facility] [address] [id number] [place] [address] Dec, [facility] [address] [id number] [place] [address] Nov, [facility] [address] [id number] [place] [address] Sep, [facility] [address] [id number] [place] [address] August, [facility] [address] [id number] [place] [address] August, [facility] [address] [id number] [place] [address] August, [facility] [address] [id number] [place] [address] August, [facility] [address] [id number] [place] [address] August, [facility] [address] [id number] [place] [address] Jun, [facility] [address] [id number] [place] [address] Jun, [facility] [address] [id number] [place] [address] Apr, [facility] [address] [id number] [place] [address] Apr, [facility] [address] [id number] [place] [address] Mar, [facility] [id number] [place] [address] Feb, [facility] [address] [id number] [place] [address] Feb, [facility] [id number] [place] [address] 14 Feb, 2011 [facility] [address] [id number] [place] [address] 17 Jan, 2011 [facility] [address] [id number] [place] [address] 15 Jan, 2011 [facility] [address] [id number] [place] [address] 15 Jan, 2011 [facility] [address] [id number] [place] [address] 14 Jan, 2011 [facility] [address] [id number] [place] [address] 15 May, 2010 [facility] [address] [id number] [place] [address] Mar, [facility] [address] [id number] [place] [address] Oct, [facility] [address] [id number] [place] [address] Sep, [facility] [address] [id number] [place] [address] Mar, [facility] [address] [id number] [place] [address] Jan, [facility] [address] [id number] [place] [address] Jan, [facility] [address] [facility] [id number] [place] [address] May, IMMUNIZATIONS No Known Immunizations SOCIAL HISTORY Never Assessed REASON FOR VISIT PLAN OF CARE VITAL SIGNS MEDICATIONS Unknown Medications RESULTS No Results PROCEDURES Procedure Date Ordered Result Body Site X-RAY EXAM OF SHOULDER August 19, 2013 INSTRUCTIONS MEDICATIONS ADMINISTERED No Known Medications MEDICAL (GENERAL) HISTORY Type Description Date Medical History hypertension Medical History Colposcopy with loop electro de excision of the cervix was performed 06/2012, mild squamous atypia (no definite dyplasia). Performed at [facility] Dr. Joy. Medical History Acute [...]
--- OUTSIDE RECORDS SUMMARY | 2019-11-23 06:22 | XMS REPORT ---
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 Active 685258192351 Problem Neck pain M54.2 Active 03182585 Problem Chronic pain due to trauma G89.21 Act juanis [id number] Problem Hematuria, unspecified type R31.9 Ac tive 53605161 Problem Seasonal allergies J30.2 Active 4 34036209 Problem Abnormal glucose R73.09 Active 102 391602 Problem Anxiety F41.9 Active 17594130 Problem Essential hypertension I10 Active 48857677 Problem Mixed hyperlipidemia E78.2 Active 21143699 Problem Hypokalemia E87.6 Active 03000497 ALLERGIES No Information ENCOUNTERS Encounter Location Date Diagnosis [place] [address] [address] 14 May, 2019 [place] [address] [address] Apr, Neuroforaminal stenosis of spine M99.89 [place] [address] [address] Apr, Essential hypertension I10 and Mixed hyp erlipidemia E78.2 [place] [address] [address] Mar, Neuroforaminal stenosis of spine M99.89 [place] [address] [address] Mar, Epicondylitis, lateral, left M77.12 [place] [address] [address] Mar, [place] [address] [address] Mar, Neuroforaminal stenosis of spine M99.89 [place] [address] [address] Feb, Neuroforaminal stenosis of spine M99.89 ; Essential hypertension I10 ; Mixed hyperlipidemia E78.2 ; Encounter for immunization Z23 and Seasonal allergies J30.2 [place] [address] [address] Jan, Neuroforaminal stenosis of spine M99.89 [place] [address] [address] Dec, Neuroforaminal stenosis of spine M99.89 [place] [address] [address] Dec, Neuroforaminal stenosis of spine M99.89 [place] [address] [address] Nov, [place] [address] [address] Nov, Neuroforaminal stenosis of spine M99.89 [place] [address] [address] Nov, Acute non-recurrent maxillary sinusitis J01.00 [place] [address] [address] Oct, Hypokalemia E87.6 [facility] [address] [facility] [id number] [address] [place] [address] Oct, Wasp sting, undetermined int ent, initial encounter T63.464A and Cellulitis of left lower extremity L03.116 [facility] [address] [address] Oct, Neuroforaminal stenosis of spine M99.89 [place] [address] [address] 24 Sep, 2018 [place] [address] [address] Sep, [place] [address] [address] 18 Sep, 2018 Routine screening for STI (sexually veronica smitted infection) Z11.[address] [address] 14 Sep, 2018 Routine screening for STI (sexually veornica smitted infection) Z11.3 ; Well woman exam with routine gynecological exam Z01.419 and Breast cancer screening Z12.[address] [address] Sep, Neuroforaminal stenosis of spine M99.[address] [address] August, Neuroforaminal stenosis of spine M99.[address] [address] August, Neuroforaminal stenosis of spine M99.89 ; Chronic pain due to trauma G89.21 and Mixed hyperlipidemia E78.[address] [address] Jul, Viral upper respiratory illness J06.9 an d Acute non-recurrent frontal sinusitis J01.[address] [address] Jul, Congestion of nasal sinus R09.[address] [address] Jul, Neuroforaminal stenosis of spine M99.89 and Essential hypertension I10 [address] [address] May, Neuroforaminal stenosis of spine M99.[address] [address] May, [place] [address] [address] May, Congestion of nasal sinus R09.81 [place] [address] [address] May, [place] [address] [address] Apr, Neuroforaminal stenosis of spine M99.89 [place] [address] [address] Apr, Neuroforaminal stenosis of spine M99.89 and Chronic pain due to trauma G89.21 [place] [address] [address] Mar, UTI (urinary tract infection) N39.0 [place] [address] [address] Mar, Vertigo R42 [place] [address] [address] Mar, Neuroforaminal stenosis of spine M99.89 [place] [address] [address] Feb, Extensor tendon disruption M67.89 [place] [address] [address] Feb, Neuroforaminal stenosis of spine M99.89 and High risk medication use Z79.899 [place] [address] [address] Jan, Hypokalemia E87.6 [place] [address] [address] Jan, Flank pain R10.9 and Acute right-sided l ow back pain without sciatica M54.5 [place] [address] [address] Jan, Hypokalemia E87.6 [place] [address] [address] Jan, [place] [address] [place] [address] Jan, URI, acute J06.9 [place] [address] [address] 05 Jan, 2018 Neuroforaminal stenosis of spine M99.89 [place] [address] [address] 13 Dec, 2017 Lateral epicondylitis, right elbow M77.1 1 [place] [address] [address] 11 Dec, 2017 Allergic rhinitis due to pollen, unspeci fied seasonality J30.1 and Allergic conjunctivitis of both eyes H10.13 [place] [address] [address] 10 Dec, 2017 Neuroforaminal stenosis of spine M99.89 [place] [address] [address] Dec, Mixed hyperlipidemia E78.2 [place] [address] [address] 05 Dec, 2017 Abnormal glucose R73.09 ; Abnormal renal ultrasound R93.429 ; Dysuria R30.0 ; Cystitis without hematuria N30.90 ; Hypokalemia E87.6 ; Mixed hyperlipidemia E78.2 and Hematuria, unspecified type R31.9 [place] [address] [address] Nov, Hypokalemia E87.6 ; Mixed hyperlipidemia E78.2 and Hematuria, unspecified type R31.9 [place] [address] [address] Nov, [place] [address] [address] Nov, Hypokalemia E87.6 [place] [address] [address] Nov, [facility] [address] [address] Nov, Abnormal renal ultrasound R93.429 [facility] [address] [address] Nov, Abnormal renal ultrasound R93.429 [place] [address] [address] Nov, Hematuria, unspecified type R31.9 and Ne uroforaminal stenosis of spine M99.89 [place] [address] [address] Nov, Dysuria R30.0 [place] [address] [address] Oct, Lateral epicondylitis, right elbow M77.1 1 [place] [address] [address] Oct, Neuroforaminal stenosis of spine M99.89 ; Visit for TB skin test Z11.1 and Essential hypertension I10 [place] [address] [address] Oct, [place] [address] [address] Oct, Neuroforaminal stenosis of spine M99.89 [place] [address] [address] Oct, Visit for TB skin test Z11.1 [place] [address] [address] Oct, Cystitis without hematuria N30.90 [place] [address] [address] Sep, Screening breast examination Z12.39 [place] [address] [address] Sep, Dysuria R30.0 and Cystitis without hemat uria N30.90 [place] [address] [address] 14 Sep, 2017 Essential hypertension I10 and Neurofora ingrid stenosis of spine M99.89 [place] [address] [address] 04 Sep, 2017 Abnormal glucose R73.09 [place] [address] [address] August, Lateral epicondylitis, right elbow M77.1 1 [place] [address] [address] August, Screen for STD (sexually transmitted dis ease) Z11.3 [place] [address] [address] August, Neuroforaminal stenosis of spine M99.89 ; Mixed hyperlipidemia E78.2 ; Elevated fasting glucose R73.01 ; Screening mammogram, encounter for Z12.31 and Encounter for well woman exam without gynecological exam Z00.00 [place] [address] [address] August, Neuroforaminal stenosis of spine M99.89 [place] [address] [address] August, Essential hypertension I10 ; Hypokalemia E87.6 and Mixed hyperlipidemia E78.2 [place] [address] [address] Jul, [place] [address] [address] Jul, Neuroforaminal stenosis of spine M99.89 [place] [address] [address] Jul, Lateral epicondylitis, right elbow M77.1 1 [place] [address] [address] Jul, [place] [address] [address] Jun, High ankle sprain of right lower extremi ty, initial encounter S93.431A [place] [address] [address] Jun, Essential hypertension I10 [place] [address] [address] Jun, [place] [address] [address] Jun, [place] [address] [address] Jun, Neuroforaminal stenosis of spine M99.89 [place] [address] [address] Jun, Pain of right upper extremity M79.601 an d Essential hypertension I10 [place] [address] [address] Jun, [place] [address] [address] Jun, Dysuria R30.0 ; Acute cystitis with keturah turia N30.01 and Screen for STD (sexually transmitted disease) Z11.3 [place] [address] [address] May, Chronic pain due to trauma G89.21 [place] [address] [address] May, Essential hypertension I10 [place] [address] [address] May, Neuroforaminal stenosis of spine M99.89 [place] [address] [address] Apr, Allergic reaction, initial encounter T78 .40XA [place] [address] [address] Apr, Low back pain, unspecified back pain lat erality, unspecified chronicity, with sciatica presence unspecified M54.5 ; Acute cystitis with hematuria N30.01 ; Neuroforaminal stenosis of spine M99.89 ; Bilateral acute serous otitis media, recurrence not specified H65.03 ; Mixed hyperlipidemia E78.2 ; Essential hypertension I10 ; Immunization counseling Z71.89 and Encounter for immunization Z23 [place] [address] [address] 08 Apr, 2017 Neck pain M54.2 [place] [address] [address] Mar, Neuroforaminal stenosis of spine M99.89 [place] [address] [address] Mar, Pharyngitis due to other organism J02.8 [place] [address] [address] Feb, Neuroforaminal stenosis of spine M99.89 [place] [address] [address] 08 Feb, 2017 UTI (urinary tract infection) N39.0 [place] [address] [address] 07 Feb, 2017 Recent urinary tract infection Z87.440 ; Neuroforaminal stenosis of spine M99.89 ; Neck pain M54.2 ; Chronic pain due to trauma G89.21 and Recurrent UTI N39.0 [place] [address] [address] 03 Feb, 2017 [place] [address] [address] Jan, Neuroforaminal stenosis of spine M99.89 [place] [address] [address] Dec, Neuroforaminal stenosis of spine M99.89 [place] [address] [address] 18 Dec, 2016 Acute seasonal allergic rhinitis due to pollen J30.1 [place] [address] [address] Dec, [place] [address] [address] Dec, Acute seasonal allergic rhinitis, unspec ified trigger J30.2 ; Allergic conjunctivitis of both eyes H10.13 and Dysfunction of both eustachian tubes H69.83 [place] [address] [address] 07 Dec, 2016 [place] [address] [address] Dec, Nevus D22.[address] [address] Nov, Chronic pain due to trauma G89.21 and Ne uroforaminal stenosis of spine M99.[address] [address] Nov, Neuroforaminal stenosis of spine M99.89 ; Essential hypertension I10 ; Mixed hyperlipidemia E78.2 ; Hypokalemia E87.6 ; Neck pain M54.2 and Nevus D22.9 [place] [address] [address] Oct, Neuroforaminal stenosis of spine M99.89 [place] [address] [address] Sep, Neuroforaminal stenosis of spine M99.89 [place] [address] [address] Sep, [place] [address] [address] August, [address] [address] August, Neck pain M54.2 and Neuroforaminal steno sis of spine M99.89 [facility] [address] [place] [id number] [place] [address] August, Routine gynecological examination Z01.41 9 and Screening breast examination Z12.39 [place] [address] [address] Jul, [facility] [address] [address] Jul, [facility] [address] [address] Jul, Neuroforaminal stenosis of spine M99.89 [facility] [address] [address] Jul, [place] [address] [address] Jul, 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 [place] [address] [address] Jul, [facility] [address] [address] Jul, [place] [address] [address] Jun, Neuroforaminal stenosis of spine M99.89 [place] [address] [address] Jun, Uterine leiomyoma, unspecified location D25.9 and Allergic reaction caused by a drug, initial encounter T78.40XA [facility] [address] [address] Jun, [place] [address] [address] May, UTI symptoms R39.9 and Pain of right sac roiliac joint M53.3 [place] [address] [address] May, Neuroforaminal stenosis of spine M99.89 [place] [address] [address] May, [place] [address] [address] May, Acute mucoid otitis media of left ear H6 5.112 and Acute non-recurrent maxillary sinusitis J01.00 [place] [address] [address] May, Acute bacterial conjunctivitis of both e yes H10.33 ; Left arm pain M79.602 and Hypokalemia E87.6 [place] [address] [address] Apr, [place] [address] [address] Apr, Neuroforaminal stenosis of spine M99.89 ; Neck pain M54.2 ; Chronic pain due to trauma G89.21 ; Mixed hyperlipidemia E78.2 ; Essential hypertension I10 and Hypokalemia E87.6 [place] [address] [address] Mar, Oral candidiasis B37.0 ; Neuroforaminal stenosis of spine M99.89 ; Neck pain M54.2 and Chronic pain due to trauma G89.21 [place] [address] [address] Feb, [place] [address] [address] Feb, [place] [address] [address] Feb, UTI (urinary tract infection) N39.0 [place] [address] [address] Feb, Dysuria R30.0 [place] [address] [address] Feb, Dysuria R30.0 [place] [address] [address] Feb, Neuroforaminal stenosis of spine M99.89 ; Neck pain M54.2 ; Essential hypertension I10 ; Chronic pain due to trauma G89.21 ; Dysuria R30.0 ; Abnormal MRI, shoulder R93.8 and Acute cystitis without hematuria N30.00 [facility] [address] [address] Jan, [facility] [address] [address] Jan, [facility] [address] [address] Jan, [facility] [address] [address] Jan, Abnormal MRI R93.8 [facility] [address] [address] 29 Dec, 2015 [facility] [address] [facility] [id number] [address] 15 Dec, 2015 Acute pain of left shoulder M25.512 [facility] [address] [address] 09 Dec, 2015 [facility] [address] [address] 08 Dec, 2015 [facility] [address] [address] 07 Dec, 2015 Acute pain of left shoulder M25.512 [facility] [address] [address] Nov, [facility] [address] [address] Nov, Neuroforaminal stenosis of spine M99.89 ; Neck pain M54.2 ; Abnormal mammogram R92.8 ; Essential hypertension I10 and Chronic pain due to trauma G89.21 [facility] [address] [address] Nov, [facility] [address] [id number] [place] [address] Oct, Acute stress disorder F43.0 [facility] [address] [id number] [place] [address] Oct, [facility] [address] [place] [id number] [place] [address] Oct, [facility] [address] [place] [id number] [place] [address] Oct, [facility] [address] [place] [id number] [place] [address] Sep, [facility] [address] [place] [id number] [place] [address] August, [facility] [address] [place] [id number] [place] [address] Jul, Neuroforaminal stenosis of spine M99.89 ; Neck pain M54.2 ; Abnormal mammogram R92.8 and Essential hypertension I10 [facility] [address] [place] [id number] [place] [address] Jul, [facility] [address] [place] [id number] [place] [address] Jul, [facility] [address] [place] [id number] [place] [address] Jul, Abnormal mammogram R92.8 [facility] [address] [place] [id number] [place] [address] Jul, [facility] [address] [place] [id number] [place] [address] Jul, UTI (urinary tract infection) N39.0 [facility] [address] [place] [id number] [place] [address] Jul, Dysuria R30.0 [facility] [address] [place] [id number] [place] [address] Jun, [facility] [address] [address] 31 Jun, 2015 [facility] [address] [address] Jun, Hypokalemia E87.6 and Hematuria R31.9 [place] [address] [address] Jun, Hypokalemia E87.6 [place] [address] [address] Jun, [place] [address] [address] Jun, Hypokalemia E87.6 [place] [address] [address] Jun, Hypokalemia E87.6 [place] [address] [address] Jun, Neuroforaminal stenosis of spine M99.89 ; Hypokalemia E87.6 ; Neck pain M54.2 ; Essential hypertension I10 ; Mixed hyperlipidemia E78.2 and Screening breast examination Z12.39 [place] [address] [address] Jun, Dysuria R30.0 ; UTI (urinary tract infec tion) N39.0 and Hematuria R31.9 [place] [address] [address] May, [place] [address] [address] May, High risk sexual behavior Z72.51 ; Hypok alemia E87.6 ; Neuroforaminal stenosis of spine M99.89 ; Neck pain M54.2 ; Essential hypertension I10 ; Mixed hyperlipidemia E78.2 ; STD exposure Z20.2 and Concern about STD in female without diagnosis Z71.1 [place] [address] [address] 16 May, 2015 Neuroforaminal stenosis of spine M99.89 ; Neck pain M54.2 ; Hypokalemia E87.6 ; Essential hypertension I10 and Mixed hyperlipidemia E78.2 [facility] [address] [address] 11 May, 2015 [facility] [address] [facility] [id number] [place] [address] 08 May, 2015 High risk sexual behavior Z7 2.51 ; STD exposure Z20.2 and Concern about STD in female without diagnosis Z71.1 [facility] [address] [address] May, [facility] [address] [address] Apr, Neuroforaminal stenosis of spine M99.89 ; Mixed hyperlipidemia E78.2 ; Essential hypertension I10 and Hypokalemia E87.6 [place] [address] [address] Mar, [facility] [address] [address] Mar, Hypokalemia E87.6 [place] [address] [address] Mar, Neuroforaminal stenosis of spine M99.89 ; Mixed hyperlipidemia E78.2 ; Neck pain M54.2 ; Essential hypertension I10 ; Abnormal fasting glucose R73.09 ; Hypokalemia E87.6 and Constipation K59.00 [facility] [address] [address] Feb, Neuroforaminal stenosis of spine M99.89 ; Mixed hyperlipidemia E78.2 ; Neck pain M54.2 ; Essential hypertension I10 ; Abnormal fasting glucose R73.09 ; Hypokalemia E87.6 and Constipation K59.00 [place] [address] [address] Feb, Elevated fasting blood sugar R73.01 [place] [address] [address] Feb, Elevated fasting blood sugar R73.01 [place] [address] [address] Feb, Hair loss L65.9 [place] [address] [address] Feb, Sinusitis J32.9 ; Essential hypertension I10 and Hair loss L65.9 [place] [address] [address] Jan, [address] [address] Jan, Essential hypertension I10 ; Neuroforami nal stenosis of spine M99.89 ; Neck pain M54.2 ; Mixed hyperlipidemia E78.2 and Anxiety F41.9 [place] [address] [address] Jan, [place] [address] [address] Jan, Mixed hyperlipidemia E78.2 ; Essential ( primary) hypertension I10 ; Strain of muscle, fascia and tendon at neck level, subsequent encounter S16.1XXD and Tension-type headache, unspecified, not intractable G44.209 [place] [address] [address] Dec, Lumbar back pain 724.2 and Neuroforamina l stenosis of spine 724.00 [place] [address] [address] Nov, [address] [address] Nov, Lumbar back pain 724.2 and Neuroforamina l stenosis of spine 724.00 [place] [address] [address] Nov, Edema 782.3 ; Lumbar back pain 724.2 ; E ssential hypertension, benign 401.1 ; Hyperlipemia 272.4 ; Neuroforaminal stenosis of spine 724.00 and Post- concussion headache 339.20 [place] [address] [address] Nov, [place] [address] [address] Nov, [place] [address] [address] Oct, Essential hypertension, benign 401.1 [place] [address] [address] Oct, Edema 782.3 ; Lumbar back pain 724.2 ; E ssential hypertension, benign 401.1 ; Hyperlipemia 272.4 ; Neuroforaminal stenosis of spine 724.00 and Post- concussion headache 339.20 [place] [address] [address] Oct, [place] [address] [address] Oct, Edema 782.[address] [address] Oct, Lumbar back pain 724.[address] [address] Oct, Cervicalgia 723.1 ; Lumbar back pain 724 .2 and High risk medication use V58.69 [place] [address] [address] Sep, [address] [address] Sep, Lumbar strain 847.[address] [address] August, Edema 782.3 and Eustachian tube dysfunct ion 381.81 [place] [address] [address] August, [facility] [id number] [place] [address] August, Eustachian tube dysfunction 381.81 [facility] [address] [id number] [place] [address] 29 Jul, 2014 Otalgia 388.70 and Otitis media 382.9 [facility] [address] [id number] [place] [address] Jul, [facility] [id number] [place] [address] Jul, [facility] [id number] [place] [address] Jul, [facility] [id number] [place] [address] Jul, [facility] [id number] [place] [address] Jul, [facility] [id number] [place] [address] Jun, [facility] [id number] [place] [address] Jun, [facility] [id number] [place] [address] Jun, [facility] [id number] [place] [address] May, [facility] [id number] [place] [address] May, [facility] [id number] [place] [address] May, [facility] [id number] [place] [address] May, [facility] [address] [id number] [place] [address] May, [facility] [id number] [place] [address] May, [facility] [place] [facility] [address] [id number] [place] [address] May, [facility] [place] [facility] [address] [id number] [place] [address] May, [facility] [place] [facility] [address] [id number] [place] [address] May, [facility] [place] [facility] [address] [id number] [place] [address] May, [facility] [place] [facility] [address] [id number] [place] [address] Apr, [facility] [place] [facility] [address] [id number] [place] [address] Apr, [facility] [place] [facility] [address] [id number] [place] [address] Apr, [facility] [place] [facility] [address] [id number] [place] [address] Apr, [facility] [place] [facility] [address] [id number] [place] [address] Apr, [facility] [place] [facility] [address] [id number] [place] [address] Apr, [facility] [place] [facility] [address] [id number] [place] [address] Apr, [facility] [place] [facility] [address] [id number] [place] [address] Apr, [facility] [place] [facility] [address] [id number] [place] [address] Apr, [facility] [place] [facility] [id number] [place] [address] Apr, [facility] [place] [facility] [address] [id number] [place] [address] Apr, [facility] [place] [facility] [id number] [place] [address] Apr, [facility] [place] [facility] [address] [id number] [place] [address] Apr, [facility] [place] [facility] [address] [id number] [place] [address] Apr, [facility] [place] [facility] [address] [id number] [place] [address] Apr, [facility] [place] [facility] [address] [id number] [place] [address] Mar, [facility] [place] [facility] [address] [id number] [place] [address] Mar, [facility] [place] [facility] [address] [id number] [place] [address] Mar, [facility] [place] [facility] [address] [id number] [place] [address] Mar, [facility] [place] [facility] [id number] [place] [address] Feb, [facility] [place] [facility] [address] [id number] [place] [address] Feb, [facility] [place] [facility] [address] [id number] [place] [address] Feb, [facility] [place] [facility] [address] [id number] [place] [address] Feb, [facility] [place] [facility] [address] [id number] [place] [address] Jan, [facility] [place] [facility] [address] [id number] [place] [address] Jan, [facility] [place] [facility] [address] [id number] [place] [address] Jan, [facility] [place] [facility] [address] [id number] [place] [address] Jan, [facility] [place] [facility] [address] [id number] [place] [address] Jan, [facility] [place] [facility] [address] [id number] [place] [address] Jan, [facility] [place] [facility] [address] [facility] [id number] [facility] [place] [address] Jan, [facility] [place] [facility] [address] [facility] [id number] [facility] [place] [address] Jan, [facility] [place] [facility] [address] [id number] [facility] [place] [address] Dec, [facility] [place] [facility] [address] [facility] [id number] [place] [address] Dec, [facility] [place] [facility] [address] [facility] [id number] [facility] [place] [address] Dec, [facility] [place] [facility] [address] [id number] [place] [address] Dec, [facility] [place] [facility] [address] [id number] [place] [address] Oct, [facility] [place] [facility] [address] [id number] [place] [address] Oct, 2013 [facility] [place] [facility] [address] [id number] [place] [address] Oct, [facility] [place] [facility] [address] [id number] [place] [address] Oct, 2013 [facility] [place] [facility] [address] [id number] [place] [address] Oct, 2013 [facility] [place] [facility] [address] [id number] [place] [address] Oct, 2013 [facility] [place] [facility] [address] [id number] [place] [address] Oct, 2013 [facility] [place] [facility] [address] [id number] [place] [address] Oct, 2013 [facility] [place] [facility] [address] [id number] [place] [address] Sep, [facility] [place] [facility] [address] [id number] [place] [address] Sep, [facility] [place] [facility] [address] [id number] [facility] [place] [address] Sep, [facility] [place] [facility] [address] [id number] [place] [address] Sep, [facility] [place] [facility] [address] [facility] [id number] [place] [address] Sep, [facility] [place] [facility] [address] [id number] [place] [address] Sep, [facility] [place] [facility] [address] [facility] [id number] [place] [address] Sep, [facility] [place] [facility] [address] [facility] [id number] [place] [address] Sep, [facility] [place] [facility] [address] [id number] [place] [address] Sep, [facility] [place] [facility] [address] [id number] [place] [address] Sep, [facility] [place] [facility] [address] [id number] [place] [address] August, [facility] [place] [facility] [address] [facility] [id number] [place] [address] August, [facility] [place] [facility] [address] [id number] [place] [address] August, [facility] [place] [facility] [address] [id number] [place] [address] August, [facility] [place] [facility] [address] [id number] [place] [address] August, [facility] [place] [facility] [address] [facility] [id number] [place] [address] August, [facility] [place] [facility] [address] [id number] [place] [address] August, [facility] [place] [facility] [address] [id number] [place] [address] August, [facility] [place] [facility] [address] [id number] [place] [address] August, [facility] [place] [facility] [address] [id number] [place] [address] August, [facility] [place] [facility] [address] [id number] [place] [address] August, [facility] [place] [facility] [address] [id number] [place] [address] August, [facility] [place] [facility] [address] [id number] [place] [address] Jul, [facility] [place] [facility] [address] [id number] [place] [address] Jul, [facility] [place] [facility] [address] [id number] [place] [address] Jul, [facility] [place] [facility] [address] [id number] [place] [address] Jul, [facility] [place] [facility] [address] [id number] [place] [address] Jul, [facility] [place] [facility] [address] [id number] [place] [address] Jul, [facility] [place] [facility] [address] [id number] [place] [address] Jun, [facility] [place] [facility] [address] [id number] [place] [address] Jun, [facility] [place] [facility] [address] [id number] [place] [address] May, [facility] [place] [facility] [address] [id number] [place] [address] May, [facility] [place] [facility] [address] [id number] [place] [address] Apr, [facility] [place] [facility] [address] [id number] [place] [address] Apr, [facility] [place] [facility] [address] [id number] [place] [address] Apr, [facility] [place] [facility] [address] [id number] [place] [address] Apr, [facility] [place] [facility] [address] [id number] [place] [address] Apr, [facility] [place] [facility] [address] [id number] [place] [address] Apr, [facility] [place] [facility] [address] [id number] [place] [address] Apr, [facility] [place] [facility] [address] [id number] [place] [address] Apr, [facility] [place] [facility] [address] [id number] [place] [address] Apr, [facility] [place] [facility] [address] [id number] [place] [address] Apr, [facility] [place] [facility] [address] [id number] [place] [address] Apr, [facility] [place] [facility] [address] [id number] [place] [address] Apr, [facility] [place] [facility] [address] [id number] [place] [address] Apr, [facility] [place] [facility] [address] [id number] [place] [address] Mar, [facility] [place] [facility] [address] [id number] [place] [address] Mar, [facility] [place] [facility] [address] [id number] [place] [address] Mar, [facility] [place] [facility] [address] [id number] [place] [address] Mar, [facility] [place] [facility] [address] [id number] [place] [address] Feb, [facility] [place] [facility] [address] [id number] [place] [address] Feb, [facility] [place] [facility] [address] [id number] [place] [address] Feb, [facility] [place] [facility] [address] [id number] [place] [address] 08 Feb, 2013 [facility] [place] [facility] [address] [facility] [id number] [place] [address] 14 Jan, 2013 [facility] [place] [facility] [address] [id number] [place] [address] 14 Jan, 2013 [facility] [place] [facility] [address] [id number] [place] [address] 11 Jan, 2013 [facility] [place] [facility] [address] [id number] [place] [address] 11 Jan, 2013 [facility] [place] [facility] [address] [id number] [place] [address] 10 Jan, 2013 [facility] [place] [facility] [address] [id number] [place] [address] 10 Jan, 2013 [facility] [place] [facility] [address] [id number] [place] [address] 09 Jan, 2013 [facility] [place] [facility] [address] [id number] [place] [address] 09 Jan, 2013 [facility] [place] [facility] [address] [id number] [place] [address] Jan, [facility] [place] [facility] [address] [id number] [place] [address] 26 Dec, 2012 [facility] [place] [facility] [address] [id number] [place] [address] 16 Dec, 2012 [facility] [place] [facility] [address] [id number] [place] [address] 16 Dec, 2012 [facility] [place] [facility] [address] [id number] [place] [address] 13 Dec, 2012 [facility] [place] [facility] [address] [id number] [place] [address] 17 Nov, 2012 [facility] [place] [facility] [address] [id number] [place] [address] 17 Nov, 2012 [facility] [place] [facility] [address] [id number] [place] [address] Nov, [facility] [address] [id number] [place] [address] Nov, [facility] [place] [facility] [address] [id number] [place] [address] Oct, [facility] [place] [facility] [address] [id number] [place] [address] Sep, [facility] [place] [facility] [address] [id number] [place] [address] August, [facility] [place] [facility] [address] [facility] [id number] [place] [address] August, [facility] [address] [id number] [place] [address] August, [facility] [place] [facility] [address] [id number] [place] [address] August, [facility] [place] [facility] [address] [id number] [place] [address] August, [facility] [place] [facility] [address] [id number] [place] [address] August, [facility] [place] [facility] [address] [id number] [place] [address] August, [facility] [place] [facility] [address] [id number] [place] [address] August, [facility] [place] [facility] [address] [id number] [place] [address] August, [facility] [place] [facility] [address] [id number] [place] [address] August, [facility] [place] [facility] [address] [id number] [place] [address] August, [facility] [place] [facility] [address] [id number] [place] [address] August, [facility] [place] [facility] [address] [id number] [place] [address] Jul, [facility] [place] [facility] [address] [id number] [place] [address] Jul, [facility] [place] [facility] [address] [facility] [id number] [facility] [place] [address] 18 Jul, 2012 [facility] [place] [facility] [address] [id number] [place] [address] 15 Jul, 2012 [facility] [place] [facility] [address] [id number] [place] [address] Jul, [facility] [place] [facility] [address] [id number] [place] [address] 08 Jul, 2012 [facility] [place] [facility] [address] [id number] [facility] [place] [address] Jul, [facility] [place] [facility] [address] [id number] [place] [address] Jul, [facility] [place] [facility] [address] [id number] [place] [address] Jul, [facility] [place] [facility] [address] [id number] [place] [address] Jul, [facility] [place] [facility] [address] [id number] [place] [address] Jul, [facility] [place] [facility] [address] [id number] [place] [address] Jun, [facility] [place] [facility] [address] [id number] [place] [address] Jun, [facility] [place] [facility] [address] [id number] [place] [address] Jun, [facility] [place] [facility] [address] [id number] [place] [address] Jun, [facility] [place] [facility] [address] [id number] [place] [address] May, [facility] [place] [facility] [address] [id number] [place] [address] 14 May, 2012 [facility] [place] [facility] [address] [id number] [place] [address] 05 May, 2012 [facility] [place] [facility] [address] [id number] [place] [address] May, [facility] [place] [facility] [address] [id number] [place] [address] May, [facility] [place] [facility] [address] [id number] [place] [address] May, [facility] [place] [facility] [address] [id number] [place] [address] Apr, [facility] [place] [facility] [address] [id number] [place] [address] Apr, [facility] [place] [facility] [address] [id number] [place] [address] Apr, [facility] [place] [facility] [address] [id number] [place] [address] Apr, [facility] [place] [facility] [address] [id number] [place] [address] 15 Mar, 2012 [facility] [place] [facility] [address] [id number] [place] [address] Mar, [facility] [place] [facility] [address] [id number] [place] [address] Mar, [facility] [place] [facility] [address] [id number] [place] [address] Mar, [facility] [place] [facility] [address] [id number] [place] [address] Mar, [facility] [place] [facility] [address] [id number] [place] [address] Mar, [facility] [place] [facility] [address] [id number] [place] [address] Mar, [facility] [place] [facility] [address] [id number] [place] [address] Feb, [facility] [place] [facility] [address] [id number] [place] [address] Feb, [facility] [place] [facility] [address] [id number] [place] [address] Feb, [facility] [place] [facility] [address] [id number] [place] [address] Feb, [facility] [place] [facility] [address] [id number] [place] [address] Jan, [facility] [place] [facility] [address] [id number] [place] [address] Jan, [facility] [place] [facility] [address] [id number] [place] [address] Jan, [facility] [place] [facility] [address] [id number] [place] [address] Jan, [facility] [place] [facility] [address] [id number] [place] [address] Jan, [facility] [place] [facility] [address] [id number] [place] [address] Jan, [facility] [place] [facility] [address] [id number] [place] [address] Dec, [facility] [place] [facility] [address] [id number] [place] [address] Dec, [facility] [place] [facility] [address] [id number] [place] [address] Nov, [facility] [place] [facility] [address] [id number] [place] [address] Sep, [facility] [place] [facility] [address] [id number] [place] [address] August, [facility] [place] [facility] [address] [id number] [place] [address] August, [facility] [place] [facility] [address] [id number] [place] [address] August, [facility] [place] [facility] [address] [id number] [place] [address] August, [facility] [place] [facility] [address] [id number] [place] [address] August, [facility] [place] [facility] [address] [id number] [place] [address] Jun, [facility] [place] [facility] [address] [id number] [place] [address] Jun, [facility] [place] [facility] [address] [id number] [place] [address] Apr, [facility] [place] [facility] [address] [id number] [place] [address] Apr, [facility] [place] [facility] [address] [id number] [place] [address] Mar, [facility] [place] [facility] [address] [id number] [place] [address] Feb, [facility] [place] [facility] [address] [id number] [place] [address] Feb, [facility] [place] [facility] [id number] [place] [address] Feb, [facility] [place] [facility] [id number] [place] [address] 17 Jan, 2011 [facility] [place] [facility] [address] [id number] [place] [address] 15 Jan, 2011 [facility] [place] [facility] [id number] [place] [address] 15 Jan, 2011 [facility] [place] [facility] [address] [id number] [place] [address] 14 Jan, 2011 [facility] [place] [facility] [address] [id number] [place] [address] 15 May, 2010 [facility] [place] [facility] [address] [id number] [place] [address] Mar, [facility] [place] [facility] [id number] [place] [address] Oct, [facility] [place] [facility] [address] [id number] [place] [address] Sep, [facility] [place] [facility] [id number] [place] [address] Mar, [facility] [address] [id number] [place] [address] Jan, [facility] [address] [id number] [place] [address] Jan, [facility] [address] [id number] [place] [address] May, IMMUNIZATIONS No Known Immunizations SOCIAL HISTORY [...]
--- OUTSIDE RECORDS SUMMARY | 2019-11-23 06:23 | XMS REPORT ---
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 Active 494944625336 Problem Neck pain M54.2 Active 96170478 Problem Chronic pain due to trauma G89.21 Act juanis 196023962 Problem Hematuria, unspecified type R31.9 Ac tive 36494221 Problem Seasonal allergies J30.2 Active 4 77295550 Problem Abnormal glucose R73.09 Active 102 569975 Problem Anxiety F41.9 Active 14755364 Problem Essential hypertension I10 Active 80822903 Problem Mixed hyperlipidemia E78.2 Active 31904349 Problem Hypokalemia E87.6 Active 52564969 ALLERGIES No Information ENCOUNTERS Encounter Location Date Diagnosis [place] [address] [address] 14 May, 2019 [place] [address] [address] Apr, Neuroforaminal stenosis of spine M99.89 [place] [address] [address] Apr, Essential hypertension I10 and Mixed hyp erlipidemia E78.2 [place] [address] [address] Mar, Neuroforaminal stenosis of spine M99.89 [place] [address] [address] Mar, Epicondylitis, lateral, left M77.12 [place] [address] [address] Mar, [place] [address] [address] Mar, Neuroforaminal stenosis of spine M99.89 [place] [address] [address] Feb, Neuroforaminal stenosis of spine M99.89 ; Essential hypertension I10 ; Mixed hyperlipidemia E78.2 ; Encounter for immunization Z23 and Seasonal allergies J30.2 [place] [address] [address] Jan, Neuroforaminal stenosis of spine M99.89 [place] [address] [address] Dec, Neuroforaminal stenosis of spine M99.89 [place] [address] [address] Dec, Neuroforaminal stenosis of spine M99.89 [place] [address] [address] Nov, [place] [address] [address] Nov, Neuroforaminal stenosis of spine M99.89 [place] [address] [address] Nov, Acute non-recurrent maxillary sinusitis J01.00 [place] [address] [address] Oct, Hypokalemia E87.6 [facility] [address] [facility] [id number] [address] [place] [address] Oct, Wasp sting, undetermined int ent, initial encounter T63.464A and Cellulitis of left lower extremity L03.116 [facility] [address] [address] Oct, Neuroforaminal stenosis of spine M99.89 [place] [address] [address] 24 Sep, 2018 [place] [address] [address] Sep, [place] [address] [address] 18 Sep, 2018 Routine screening for STI (sexually veronica smitted infection) Z11.[address] [address] 14 Sep, 2018 Routine screening for STI (sexually veronica smitted infection) Z11.3 ; Well woman exam with routine gynecological exam Z01.419 and Breast cancer screening Z12.[address] [address] Sep, Neuroforaminal stenosis of spine M99.[address] [address] August, Neuroforaminal stenosis of spine M99.[address] [address] August, Neuroforaminal stenosis of spine M99.89 ; Chronic pain due to trauma G89.21 and Mixed hyperlipidemia E78.[address] [address] Jul, Viral upper respiratory illness J06.9 an d Acute non-recurrent frontal sinusitis J01.[address] [address] Jul, Congestion of nasal sinus R09.[address] [address] Jul, Neuroforaminal stenosis of spine M99.89 and Essential hypertension I10 [address] [address] May, Neuroforaminal stenosis of spine M99.[address] [address] May, [place] [address] [address] May, Congestion of nasal sinus R09.81 [place] [address] [address] May, [place] [address] [address] Apr, Neuroforaminal stenosis of spine M99.89 [place] [address] [address] Apr, Neuroforaminal stenosis of spine M99.89 and Chronic pain due to trauma G89.21 [place] [address] [address] Mar, UTI (urinary tract infection) N39.0 [place] [address] [address] Mar, Vertigo R42 [place] [address] [address] Mar, Neuroforaminal stenosis of spine M99.89 [place] [address] [address] Feb, Extensor tendon disruption M67.89 [place] [address] [address] Feb, Neuroforaminal stenosis of spine M99.89 and High risk medication use Z79.899 [place] [address] [address] Jan, Hypokalemia E87.6 [place] [address] [address] Jan, Flank pain R10.9 and Acute right-sided l ow back pain without sciatica M54.5 [place] [address] [address] Jan, Hypokalemia E87.6 [place] [address] [address] Jan, [place] [address] [place] [address] Jan, URI, acute J06.9 [place] [address] [address] 05 Jan, 2018 Neuroforaminal stenosis of spine M99.89 [place] [address] [address] 13 Dec, 2017 Lateral epicondylitis, right elbow M77.1 1 [place] [address] [address] 11 Dec, 2017 Allergic rhinitis due to pollen, unspeci fied seasonality J30.1 and Allergic conjunctivitis of both eyes H10.13 [place] [address] [address] 10 Dec, 2017 Neuroforaminal stenosis of spine M99.89 [place] [address] [address] Dec, Mixed hyperlipidemia E78.2 [place] [address] [address] 05 Dec, 2017 Abnormal glucose R73.09 ; Abnormal renal ultrasound R93.429 ; Dysuria R30.0 ; Cystitis without hematuria N30.90 ; Hypokalemia E87.6 ; Mixed hyperlipidemia E78.2 and Hematuria, unspecified type R31.9 [place] [address] [address] Nov, Hypokalemia E87.6 ; Mixed hyperlipidemia E78.2 and Hematuria, unspecified type R31.9 [place] [address] [address] Nov, [place] [address] [address] Nov, Hypokalemia E87.6 [place] [address] [address] Nov, [facility] [address] [address] Nov, Abnormal renal ultrasound R93.429 [facility] [address] [address] Nov, Abnormal renal ultrasound R93.429 [place] [address] [address] Nov, Hematuria, unspecified type R31.9 and Ne uroforaminal stenosis of spine M99.89 [place] [address] [address] Nov, Dysuria R30.0 [place] [address] [address] Oct, Lateral epicondylitis, right elbow M77.1 1 [place] [address] [address] Oct, Neuroforaminal stenosis of spine M99.89 ; Visit for TB skin test Z11.1 and Essential hypertension I10 [place] [address] [address] Oct, [place] [address] [address] Oct, Neuroforaminal stenosis of spine M99.89 [place] [address] [address] Oct, Visit for TB skin test Z11.1 [place] [address] [address] Oct, Cystitis without hematuria N30.90 [place] [address] [address] Sep, Screening breast examination Z12.39 [place] [address] [address] Sep, Dysuria R30.0 and Cystitis without hemat uria N30.90 [place] [address] [address] 14 Sep, 2017 Essential hypertension I10 and Neurofora ingrid stenosis of spine M99.89 [place] [address] [address] 04 Sep, 2017 Abnormal glucose R73.09 [place] [address] [address] August, Lateral epicondylitis, right elbow M77.1 1 [place] [address] [address] August, Screen for STD (sexually transmitted dis ease) Z11.3 [place] [address] [address] August, Neuroforaminal stenosis of spine M99.89 ; Mixed hyperlipidemia E78.2 ; Elevated fasting glucose R73.01 ; Screening mammogram, encounter for Z12.31 and Encounter for well woman exam without gynecological exam Z00.00 [place] [address] [address] August, Neuroforaminal stenosis of spine M99.89 [place] [address] [address] August, Essential hypertension I10 ; Hypokalemia E87.6 and Mixed hyperlipidemia E78.2 [place] [address] [address] Jul, [place] [address] [address] Jul, Neuroforaminal stenosis of spine M99.89 [place] [address] [address] Jul, Lateral epicondylitis, right elbow M77.1 1 [place] [address] [address] Jul, [place] [address] [address] Jun, High ankle sprain of right lower extremi ty, initial encounter S93.431A [place] [address] [address] Jun, Essential hypertension I10 [place] [address] [address] Jun, [place] [address] [address] Jun, [place] [address] [address] Jun, Neuroforaminal stenosis of spine M99.89 [place] [address] [address] Jun, Pain of right upper extremity M79.601 an d Essential hypertension I10 [place] [address] [address] Jun, [place] [address] [address] Jun, Dysuria R30.0 ; Acute cystitis with keturah turia N30.01 and Screen for STD (sexually transmitted disease) Z11.3 [place] [address] [address] May, Chronic pain due to trauma G89.21 [place] [address] [address] May, Essential hypertension I10 [place] [address] [address] May, Neuroforaminal stenosis of spine M99.89 [place] [address] [address] Apr, Allergic reaction, initial encounter T78 .40XA [place] [address] [address] Apr, Low back pain, unspecified back pain lat erality, unspecified chronicity, with sciatica presence unspecified M54.5 ; Acute cystitis with hematuria N30.01 ; Neuroforaminal stenosis of spine M99.89 ; Bilateral acute serous otitis media, recurrence not specified H65.03 ; Mixed hyperlipidemia E78.2 ; Essential hypertension I10 ; Immunization counseling Z71.89 and Encounter for immunization Z23 [place] [address] [address] 08 Apr, 2017 Neck pain M54.2 [place] [address] [address] Mar, Neuroforaminal stenosis of spine M99.89 [place] [address] [address] Mar, Pharyngitis due to other organism J02.8 [place] [address] [address] Feb, Neuroforaminal stenosis of spine M99.89 [place] [address] [address] 08 Feb, 2017 UTI (urinary tract infection) N39.0 [place] [address] [address] 07 Feb, 2017 Recent urinary tract infection Z87.440 ; Neuroforaminal stenosis of spine M99.89 ; Neck pain M54.2 ; Chronic pain due to trauma G89.21 and Recurrent UTI N39.0 [place] [address] [address] 03 Feb, 2017 [place] [address] [address] Jan, Neuroforaminal stenosis of spine M99.89 [place] [address] [address] Dec, Neuroforaminal stenosis of spine M99.89 [place] [address] [address] 18 Dec, 2016 Acute seasonal allergic rhinitis due to pollen J30.1 [place] [address] [address] Dec, [place] [address] [address] Dec, Acute seasonal allergic rhinitis, unspec ified trigger J30.2 ; Allergic conjunctivitis of both eyes H10.13 and Dysfunction of both eustachian tubes H69.83 [place] [address] [address] 07 Dec, 2016 [place] [address] [address] Dec, Nevus D22.[address] [address] Nov, Chronic pain due to trauma G89.21 and Ne uroforaminal stenosis of spine M99.[address] [address] Nov, Neuroforaminal stenosis of spine M99.89 ; Essential hypertension I10 ; Mixed hyperlipidemia E78.2 ; Hypokalemia E87.6 ; Neck pain M54.2 and Nevus D22.9 [place] [address] [address] Oct, Neuroforaminal stenosis of spine M99.89 [place] [address] [address] Sep, Neuroforaminal stenosis of spine M99.89 [place] [address] [address] Sep, [place] [address] [address] August, [address] [address] August, Neck pain M54.2 and Neuroforaminal steno sis of spine M99.89 [facility] [address] [place] [id number] [place] [address] August, Routine gynecological examination Z01.41 9 and Screening breast examination Z12.39 [place] [address] [address] Jul, [facility] [address] [address] Jul, [facility] [address] [address] Jul, Neuroforaminal stenosis of spine M99.89 [facility] [address] [address] Jul, [place] [address] [address] Jul, 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 [place] [address] [address] Jul, [facility] [address] [address] Jul, [place] [address] [address] Jun, Neuroforaminal stenosis of spine M99.89 [place] [address] [address] Jun, Uterine leiomyoma, unspecified location D25.9 and Allergic reaction caused by a drug, initial encounter T78.40XA [facility] [address] [address] Jun, [place] [address] [address] May, UTI symptoms R39.9 and Pain of right sac roiliac joint M53.3 [place] [address] [address] May, Neuroforaminal stenosis of spine M99.89 [place] [address] [address] May, [place] [address] [address] May, Acute mucoid otitis media of left ear H6 5.112 and Acute non-recurrent maxillary sinusitis J01.00 [place] [address] [address] May, Acute bacterial conjunctivitis of both e yes H10.33 ; Left arm pain M79.602 and Hypokalemia E87.6 [place] [address] [address] Apr, [place] [address] [address] Apr, Neuroforaminal stenosis of spine M99.89 ; Neck pain M54.2 ; Chronic pain due to trauma G89.21 ; Mixed hyperlipidemia E78.2 ; Essential hypertension I10 and Hypokalemia E87.6 [place] [address] [address] Mar, Oral candidiasis B37.0 ; Neuroforaminal stenosis of spine M99.89 ; Neck pain M54.2 and Chronic pain due to trauma G89.21 [place] [address] [address] Feb, [place] [address] [address] Feb, [place] [address] [address] Feb, UTI (urinary tract infection) N39.0 [place] [address] [address] Feb, Dysuria R30.0 [place] [address] [address] Feb, Dysuria R30.0 [place] [address] [address] Feb, Neuroforaminal stenosis of spine M99.89 ; Neck pain M54.2 ; Essential hypertension I10 ; Chronic pain due to trauma G89.21 ; Dysuria R30.0 ; Abnormal MRI, shoulder R93.8 and Acute cystitis without hematuria N30.00 [facility] [address] [address] Jan, [facility] [address] [address] Jan, [facility] [address] [address] Jan, [facility] [address] [address] Jan, Abnormal MRI R93.8 [facility] [address] [address] 29 Dec, 2015 [facility] [id number] [place] [address] 15 Dec, 2015 Acute pain of left shoulder M25.512 [facility] [address] [address] 09 Dec, 2015 [facility] [address] [address] 08 Dec, 2015 [facility] [address] [address] 07 Dec, 2015 Acute pain of left shoulder M25.512 [facility] [address] [address] Nov, [facility] [address] [address] Nov, Neuroforaminal stenosis of spine M99.89 ; Neck pain M54.2 ; Abnormal mammogram R92.8 ; Essential hypertension I10 and Chronic pain due to trauma G89.21 [facility] [address] [address] Nov, [facility] [address] [id number] [place] [address] Oct, Acute stress disorder F43.0 [facility] [address] [facility] [id number] [place] [address] Oct, [facility] [address] [place] [id number] [place] [address] Oct, [facility] [address] [place] [id number] [place] [address] Oct, [facility] [address] [place] [id number] [place] [address] Sep, [facility] [address] [place] [id number] [place] [address] August, [facility] [address] [place] [id number] [place] [address] Jul, Neuroforaminal stenosis of spine M99.89 ; Neck pain M54.2 ; Abnormal mammogram R92.8 and Essential hypertension I10 [facility] [address] [place] [id number] [place] [address] Jul, [facility] [address] [place] [id number] [place] [address] Jul, [facility] [address] [place] [id number] [place] [address] Jul, Abnormal mammogram R92.8 [facility] [address] [place] [id number] [place] [address] Jul, [facility] [address] [place] [id number] [place] [address] Jul, UTI (urinary tract infection) N39.0 [facility] [address] [place] [id number] [place] [address] Jul, Dysuria R30.0 [facility] [address] [place] [id number] [place] [address] Jun, [facility] [address] [address] 31 Jun, 2015 [facility] [address] [address] Jun, Hypokalemia E87.6 and Hematuria R31.9 [place] [address] [address] Jun, Hypokalemia E87.6 [place] [address] [address] Jun, [place] [address] [address] Jun, Hypokalemia E87.6 [place] [address] [address] Jun, Hypokalemia E87.6 [place] [address] [address] Jun, Neuroforaminal stenosis of spine M99.89 ; Hypokalemia E87.6 ; Neck pain M54.2 ; Essential hypertension I10 ; Mixed hyperlipidemia E78.2 and Screening breast examination Z12.39 [place] [address] [address] Jun, Dysuria R30.0 ; UTI (urinary tract infec tion) N39.0 and Hematuria R31.9 [place] [address] [address] May, [place] [address] [address] May, High risk sexual behavior Z72.51 ; Hypok alemia E87.6 ; Neuroforaminal stenosis of spine M99.89 ; Neck pain M54.2 ; Essential hypertension I10 ; Mixed hyperlipidemia E78.2 ; STD exposure Z20.2 and Concern about STD in female without diagnosis Z71.1 [place] [address] [address] 16 May, 2015 Neuroforaminal stenosis of spine M99.89 ; Neck pain M54.2 ; Hypokalemia E87.6 ; Essential hypertension I10 and Mixed hyperlipidemia E78.2 [facility] [address] [address] 11 May, 2015 [facility] [address] [facility] [id number] [place] [address] 08 May, 2015 High risk sexual behavior Z7 2.51 ; STD exposure Z20.2 and Concern about STD in female without diagnosis Z71.1 [facility] [address] [address] May, [facility] [address] [address] Apr, Neuroforaminal stenosis of spine M99.89 ; Mixed hyperlipidemia E78.2 ; Essential hypertension I10 and Hypokalemia E87.6 [place] [address] [address] Mar, [facility] [address] [address] Mar, Hypokalemia E87.6 [place] [address] [address] Mar, Neuroforaminal stenosis of spine M99.89 ; Mixed hyperlipidemia E78.2 ; Neck pain M54.2 ; Essential hypertension I10 ; Abnormal fasting glucose R73.09 ; Hypokalemia E87.6 and Constipation K59.00 [facility] [address] [address] Feb, Neuroforaminal stenosis of spine M99.89 ; Mixed hyperlipidemia E78.2 ; Neck pain M54.2 ; Essential hypertension I10 ; Abnormal fasting glucose R73.09 ; Hypokalemia E87.6 and Constipation K59.00 [place] [address] [address] Feb, Elevated fasting blood sugar R73.01 [place] [address] [address] Feb, Elevated fasting blood sugar R73.01 [place] [address] [address] Feb, Hair loss L65.9 [place] [address] [address] Feb, Sinusitis J32.9 ; Essential hypertension I10 and Hair loss L65.9 [place] [address] [address] Jan, [address] [address] Jan, Essential hypertension I10 ; Neuroforami nal stenosis of spine M99.89 ; Neck pain M54.2 ; Mixed hyperlipidemia E78.2 and Anxiety F41.9 [place] [address] [address] Jan, [place] [address] [address] Jan, Mixed hyperlipidemia E78.2 ; Essential ( primary) hypertension I10 ; Strain of muscle, fascia and tendon at neck level, subsequent encounter S16.1XXD and Tension-type headache, unspecified, not intractable G44.209 [place] [address] [address] Dec, Lumbar back pain 724.2 and Neuroforamina l stenosis of spine 724.00 [place] [address] [address] Nov, [address] [address] Nov, Lumbar back pain 724.2 and Neuroforamina l stenosis of spine 724.00 [place] [address] [address] Nov, Edema 782.3 ; Lumbar back pain 724.2 ; E ssential hypertension, benign 401.1 ; Hyperlipemia 272.4 ; Neuroforaminal stenosis of spine 724.00 and Post- concussion headache 339.20 [place] [address] [address] Nov, [place] [address] [address] Nov, [place] [address] [address] Oct, Essential hypertension, benign 401.1 [place] [address] [address] Oct, Edema 782.3 ; Lumbar back pain 724.2 ; E ssential hypertension, benign 401.1 ; Hyperlipemia 272.4 ; Neuroforaminal stenosis of spine 724.00 and Post- concussion headache 339.20 [place] [address] [address] Oct, [place] [address] [address] Oct, Edema 782.[address] [address] Oct, Lumbar back pain 724.[address] [address] Oct, Cervicalgia 723.1 ; Lumbar back pain 724 .2 and High risk medication use V58.69 [place] [address] [address] Sep, [address] [address] Sep, Lumbar strain 847.[address] [address] August, Edema 782.3 and Eustachian tube dysfunct ion 381.81 [place] [address] [address] August, [facility] [address] [id number] [place] [address] August, Eustachian tube dysfunction 381.81 [facility] [address] [id number] [place] [address] 29 Jul, 2014 Otalgia 388.70 and Otitis media 382.9 [facility] [address] [id number] [place] [address] Jul, [facility] [address] [id number] [place] [address] Jul, [facility] [address] [id number] [place] [address] Jul, [facility] [address] [id number] [place] [address] Jul, [facility] [address] [id number] [place] [address] Jul, [facility] [id number] [place] [address] Jun, [facility] [id number] [place] [address] Jun, [facility] [id number] [place] [address] Jun, [facility] [id number] [place] [address] May, [facility] [id number] [place] [address] May, [facility] [id number] [place] [address] May, [facility] [id number] [place] [address] May, [facility] [id number] [place] [address] May, [facility] [id number] [place] [address] May, [facility] [place] [facility] [address] [facility] [id number] [place] [address] May, [facility] [place] [facility] [address] [facility] [id number] [place] [address] May, [facility] [place] [facility] [address] [facility] [id number] [place] [address] May, [facility] [place] [facility] [address] [facility] [id number] [place] [address] May, [facility] [place] [facility] [address] [facility] [id number] [place] [address] Apr, [facility] [place] [facility] [address] [facility] [id number] [place] [address] Apr, [facility] [place] [facility] [address] [facility] [id number] [place] [address] Apr, [facility] [place] [facility] [address] [facility] [id number] [place] [address] Apr, [facility] [place] [facility] [address] [facility] [id number] [place] [address] Apr, [facility] [place] [facility] [address] [facility] [id number] [place] [address] Apr, [facility] [place] [facility] [address] [facility] [id number] [place] [address] Apr, [facility] [place] [facility] [address] [facility] [id number] [place] [address] Apr, [facility] [place] [facility] [address] [facility] [id number] [place] [address] Apr, [facility] [place] [facility] [id number] [place] [address] Apr, [facility] [place] [facility] [address] [facility] [id number] [place] [address] Apr, [facility] [place] [facility] [id number] [place] [address] Apr, [facility] [place] [facility] [address] [facility] [id number] [place] [address] Apr, [facility] [place] [facility] [address] [facility] [id number] [place] [address] Apr, [facility] [place] [facility] [address] [facility] [id number] [place] [address] Apr, [facility] [place] [facility] [address] [facility] [id number] [place] [address] Mar, [facility] [place] [facility] [address] [facility] [id number] [place] [address] Mar, [facility] [place] [facility] [address] [facility] [id number] [place] [address] Mar, [facility] [place] [facility] [address] [facility] [id number] [place] [address] Mar, [facility] [place] [facility] [id number] [place] [address] Feb, [facility] [place] [facility] [address] [facility] [id number] [place] [address] Feb, [facility] [place] [facility] [address] [facility] [id number] [place] [address] Feb, [facility] [place] [facility] [address] [facility] [id number] [place] [address] Feb, [facility] [place] [facility] [address] [facility] [id number] [place] [address] Jan, [facility] [place] [facility] [address] [facility] [id number] [place] [address] Jan, [facility] [place] [facility] [address] [facility] [id number] [place] [address] Jan, [facility] [place] [facility] [address] [facility] [id number] [place] [address] Jan, [facility] [place] [facility] [address] [facility] [id number] [place] [address] Jan, [facility] [place] [facility] [address] [facility] [id number] [place] [address] Jan, [facility] [place] [facility] [address] [facility] [id number] [place] [address] Jan, [facility] [place] [facility] [address] [facility] [id number] [place] [address] Jan, [facility] [place] [facility] [address] [facility] [id number] [place] [address] Dec, [facility] [place] [facility] [address] [facility] [id number] [place] [address] Dec, [facility] [place] [facility] [address] [facility] [id number] [place] [address] Dec, [facility] [place] [facility] [address] [facility] [id number] [place] [address] Dec, [facility] [place] [facility] [address] [facility] [id number] [place] [address] Oct, [facility] [place] [facility] [address] [facility] [id number] [place] [address] Oct, 2013 [facility] [place] [facility] [address] [facility] [id number] [place] [address] Oct, [facility] [place] [facility] [address] [facility] [id number] [place] [address] Oct, 2013 [facility] [place] [facility] [address] [facility] [id number] [place] [address] Oct, 2013 [facility] [place] [facility] [address] [facility] [id number] [place] [address] Oct, 2013 [facility] [place] [facility] [address] [facility] [id number] [place] [address] Oct, 2013 [facility] [place] [facility] [address] [facility] [id number] [place] [address] Oct, 2013 [facility] [place] [facility] [address] [facility] [id number] [place] [address] Sep, [facility] [place] [facility] [address] [facility] [id number] [place] [address] Sep, [facility] [place] [facility] [address] [id number] [place] [address] Sep, [facility] [place] [facility] [address] [id number] [place] [address] Sep, [facility] [place] [facility] [address] [facility] [id number] [place] [address] Sep, [facility] [place] [facility] [address] [facility] [id number] [place] [address] Sep, [facility] [place] [facility] [address] [facility] [id number] [place] [address] Sep, [facility] [place] [facility] [address] [facility] [id number] [place] [address] Sep, [facility] [place] [facility] [address] [facility] [id number] [place] [address] Sep, [facility] [place] [facility] [address] [facility] [id number] [place] [address] Sep, [facility] [place] [facility] [address] [facility] [id number] [place] [address] August, [facility] [place] [facility] [address] [facility] [id number] [place] [address] August, [facility] [place] [facility] [address] [facility] [id number] [place] [address] August, [facility] [place] [facility] [address] [facility] [id number] [place] [address] August, [facility] [place] [facility] [address] [facility] [id number] [place] [address] August, [facility] [place] [facility] [address] [facility] [id number] [place] [address] August, [facility] [place] [facility] [address] [id number] [place] [address] August, [facility] [place] [facility] [address] [facility] [id number] [place] [address] August, [facility] [place] [facility] [address] [facility] [id number] [place] [address] August, [facility] [place] [facility] [address] [facility] [id number] [place] [address] August, [facility] [place] [facility] [address] [facility] [id number] [place] [address] August, [facility] [place] [facility] [address] [facility] [id number] [place] [address] August, [facility] [place] [facility] [address] [facility] [id number] [place] [address] Jul, [facility] [place] [facility] [address] [facility] [id number] [place] [address] Jul, [facility] [place] [facility] [address] [facility] [id number] [place] [address] Jul, [facility] [place] [facility] [address] [facility] [id number] [place] [address] Jul, [facility] [place] [facility] [address] [facility] [id number] [place] [address] Jul, [facility] [place] [facility] [address] [facility] [id number] [place] [address] Jul, [facility] [place] [facility] [address] [facility] [id number] [place] [address] Jun, [facility] [place] [facility] [address] [facility] [id number] [place] [address] Jun, [facility] [place] [facility] [address] [facility] [id number] [place] [address] May, [facility] [place] [facility] [address] [facility] [id number] [place] [address] May, [facility] [place] [facility] [address] [facility] [id number] [place] [address] Apr, [facility] [place] [facility] [address] [facility] [id number] [place] [address] Apr, [facility] [place] [facility] [address] [facility] [id number] [place] [address] Apr, [facility] [place] [facility] [address] [facility] [id number] [place] [address] Apr, [facility] [place] [facility] [address] [facility] [id number] [place] [address] Apr, [facility] [place] [facility] [address] [facility] [id number] [place] [address] Apr, [facility] [place] [facility] [address] [facility] [id number] [place] [address] Apr, [facility] [place] [facility] [address] [facility] [id number] [place] [address] Apr, [facility] [place] [facility] [address] [facility] [id number] [place] [address] Apr, [facility] [place] [facility] [address] [facility] [id number] [place] [address] Apr, [facility] [place] [facility] [address] [facility] [id number] [place] [address] Apr, [facility] [place] [facility] [address] [facility] [id number] [place] [address] Apr, [facility] [place] [facility] [address] [facility] [id number] [place] [address] Apr, [facility] [place] [facility] [address] [facility] [id number] [place] [address] Mar, [facility] [place] [facility] [address] [facility] [id number] [place] [address] Mar, [facility] [place] [facility] [address] [facility] [id number] [place] [address] Mar, [facility] [place] [facility] [address] [facility] [id number] [place] [address] Mar, [facility] [place] [facility] [address] [facility] [id number] [place] [address] Feb, [facility] [place] [facility] [address] [facility] [id number] [place] [address] Feb, [facility] [place] [facility] [address] [facility] [id number] [place] [address] Feb, [facility] [place] [facility] [address] [facility] [id number] [place] [address] 08 Feb, 2013 [facility] [place] [facility] [address] [facility] [id number] [place] [address] 14 Jan, 2013 [facility] [place] [facility] [address] [facility] [id number] [place] [address] 14 Jan, 2013 [facility] [place] [facility] [address] [facility] [id number] [place] [address] 11 Jan, 2013 [facility] [place] [facility] [address] [facility] [id number] [place] [address] 11 Jan, 2013 [facility] [place] [facility] [address] [facility] [id number] [place] [address] 10 Jan, 2013 [facility] [place] [facility] [address] [facility] [id number] [place] [address] 10 Jan, 2013 [facility] [place] [facility] [address] [facility] [id number] [place] [address] 09 Jan, 2013 [facility] [place] [facility] [address] [facility] [id number] [place] [address] 09 Jan, 2013 [facility] [place] [facility] [address] [facility] [id number] [place] [address] Jan, [facility] [place] [facility] [address] [facility] [id number] [place] [address] 26 Dec, 2012 [facility] [place] [facility] [address] [facility] [id number] [place] [address] 16 Dec, 2012 [facility] [place] [facility] [address] [facility] [id number] [place] [address] 16 Dec, 2012 [facility] [place] [facility] [address] [facility] [id number] [place] [address] 13 Dec, 2012 [facility] [place] [facility] [address] [facility] [id number] [place] [address] 17 Nov, 2012 [facility] [place] [facility] [address] [facility] [id number] [place] [address] 17 Nov, 2012 [facility] [place] [facility] [address] [facility] [id number] [place] [address] Nov, [facility] [address] [id number] [place] [address] Nov, [facility] [place] [facility] [address] [facility] [id number] [place] [address] Oct, [facility] [place] [facility] [address] [facility] [id number] [place] [address] Sep, [facility] [place] [facility] [address] [id number] [place] [address] August, [facility] [place] [facility] [address] [facility] [id number] [place] [address] August, [facility] [address] [facility] [id number] [place] [address] August, [facility] [place] [facility] [address] [facility] [id number] [place] [address] August, [facility] [place] [facility] [address] [facility] [id number] [place] [address] August, [facility] [place] [facility] [address] [facility] [id number] [place] [address] August, [facility] [place] [facility] [address] [facility] [id number] [place] [address] August, [facility] [place] [facility] [address] [facility] [id number] [place] [address] August, [facility] [place] [facility] [address] [facility] [id number] [place] [address] August, [facility] [place] [facility] [address] [facility] [id number] [place] [address] August, [facility] [place] [facility] [address] [facility] [id number] [place] [address] August, [facility] [place] [facility] [address] [facility] [id number] [place] [address] August, [facility] [place] [facility] [address] [facility] [id number] [place] [address] Jul, [facility] [place] [facility] [address] [facility] [id number] [place] [address] Jul, [facility] [place] [facility] [address] [facility] [id number] [place] [address] 18 Jul, 2012 [facility] [place] [facility] [address] [facility] [id number] [place] [address] 15 Jul, 2012 [facility] [place] [facility] [address] [facility] [id number] [place] [address] Jul, [facility] [place] [facility] [address] [facility] [id number] [place] [address] 08 Jul, 2012 [facility] [place] [facility] [address] [facility] [id number] [place] [address] Jul, [facility] [place] [facility] [address] [facility] [id number] [place] [address] Jul, [facility] [place] [facility] [address] [facility] [id number] [place] [address] Jul, [facility] [place] [facility] [address] [facility] [id number] [place] [address] Jul, [facility] [place] [facility] [address] [facility] [id number] [place] [address] Jul, [facility] [place] [facility] [address] [facility] [id number] [place] [address] Jun, [facility] [place] [facility] [address] [facility] [id number] [place] [address] Jun, [facility] [place] [facility] [address] [facility] [id number] [place] [address] Jun, [facility] [place] [facility] [address] [facility] [id number] [place] [address] Jun, [facility] [place] [facility] [address] [facility] [id number] [place] [address] May, [facility] [place] [facility] [address] [facility] [id number] [place] [address] 14 May, 2012 [facility] [place] [facility] [address] [facility] [id number] [place] [address] 05 May, 2012 [facility] [place] [facility] [address] [id number] [place] [address] May, [facility] [place] [facility] [address] [id number] [place] [address] May, [facility] [place] [facility] [address] [id number] [place] [address] May, [facility] [place] [facility] [address] [facility] [id number] [place] [address] Apr, [facility] [place] [facility] [address] [facility] [id number] [place] [address] Apr, [facility] [place] [facility] [address] [id number] [place] [address] Apr, [facility] [place] [facility] [address] [id number] [place] [address] Apr, [facility] [place] [facility] [address] [facility] [id number] [place] [address] 15 Mar, 2012 [facility] [place] [facility] [address] [id number] [place] [address] Mar, [facility] [place] [facility] [address] [id number] [place] [address] Mar, [facility] [place] [facility] [address] [id number] [place] [address] Mar, [facility] [place] [facility] [address] [id number] [place] [address] Mar, [facility] [place] [facility] [address] [id number] [place] [address] Mar, [facility] [place] [facility] [address] [id number] [place] [address] Mar, [facility] [place] [facility] [address] [id number] [place] [address] Feb, [facility] [place] [facility] [address] [id number] [place] [address] Feb, [facility] [place] [facility] [address] [id number] [place] [address] Feb, [facility] [place] [facility] [address] [id number] [place] [address] Feb, [facility] [place] [facility] [address] [id number] [place] [address] Jan, [facility] [place] [facility] [address] [id number] [place] [address] Jan, [facility] [place] [facility] [address] [id number] [place] [address] Jan, [facility] [place] [facility] [address] [id number] [place] [address] Jan, [facility] [place] [facility] [address] [id number] [place] [address] Jan, [facility] [place] [facility] [address] [id number] [place] [address] Jan, [facility] [place] [facility] [address] [id number] [place] [address] Dec, [facility] [place] [facility] [address] [id number] [place] [address] Dec, [facility] [place] [facility] [address] [id number] [place] [address] Nov, [facility] [place] [facility] [address] [id number] [place] [address] Sep, [facility] [place] [facility] [address] [id number] [place] [address] August, [facility] [place] [facility] [address] [facility] [id number] [place] [address] August, [facility] [place] [facility] [address] [id number] [place] [address] August, [facility] [place] [facility] [address] [id number] [place] [address] August, [facility] [place] [facility] [address] [id number] [place] [address] August, [facility] [place] [facility] [address] [facility] [id number] [place] [address] Jun, [facility] [address] [facility] [id number] [place] [address] Jun, [facility] [address] [facility] [id number] [place] [address] Apr, [facility] [address] [facility] [id number] [place] [address] Apr, [facility] [address] [facility] [id number] [place] [address] Mar, [facility] [address] [facility] [id number] [place] [address] Feb, [facility] [address] [facility] [id number] [place] [address] Feb, [facility] [id number] [place] [address] Feb, [facility] [id number] [place] [address] 17 Jan, 2011 [facility] [address] [facility] [id number] [place] [address] 15 Jan, 2011 [facility] [id number] [place] [address] 15 Jan, 2011 [facility] [address] [facility] [id number] [place] [address] 14 Jan, 2011 [facility] [address] [facility] [id number] [place] [address] 15 May, 2010 [facility] [address] [facility] [address] [id number] [place] [address] Mar, [facility] [id number] [place] [address] Oct, [facility] [address] [facility] [id number] [place] [address] Sep, [facility] [id number] [place] [address] Mar, [facility] [id number] [place] [address] Jan, [facility] [id number] [place] [address] Jan, [facility] [id number] [place] [address] May, IMMUNIZATIONS No Known Immunizations SOCIAL HISTORY [...]
--- OUTSIDE RECORDS SUMMARY | 2019-11-23 06:23 | XMS REPORT ---
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 Active [id number] Problem Neck pain M54.2 Active 15043954 Problem Chronic pain due to trauma G89.21 Act juanis [id number] Problem Hematuria, unspecified type R31.9 Ac tive 37061587 Problem Seasonal allergies J30.2 Active 4 66271700 Problem Abnormal glucose R73.09 Active 102 360362 Problem Anxiety F41.9 Active 35701611 Problem Essential hypertension I10 Active 84271846 Problem Mixed hyperlipidemia E78.2 Active 94026818 Problem Hypokalemia E87.6 Active 44312036 ALLERGIES No Information ENCOUNTERS Encounter Location Date Diagnosis [place] [address] [address] 14 May, 2019 [place] [address] [address] Apr, Neuroforaminal stenosis of spine M99.89 [place] [address] [address] Apr, Essential hypertension I10 and Mixed hyp erlipidemia E78.2 [place] [address] [address] Mar, Neuroforaminal stenosis of spine M99.89 [place] [address] [address] Mar, Epicondylitis, lateral, left M77.12 [place] [address] [address] Mar, [place] [address] [address] Mar, Neuroforaminal stenosis of spine M99.89 [place] [address] [address] Feb, Neuroforaminal stenosis of spine M99.89 ; Essential hypertension I10 ; Mixed hyperlipidemia E78.2 ; Encounter for immunization Z23 and Seasonal allergies J30.2 [place] [address] [address] Jan, Neuroforaminal stenosis of spine M99.89 [place] [address] [address] Dec, Neuroforaminal stenosis of spine M99.89 [place] [address] [address] Dec, Neuroforaminal stenosis of spine M99.89 [place] [address] [address] Nov, [place] [address] [address] Nov, Neuroforaminal stenosis of spine M99.89 [place] [address] [address] Nov, Acute non-recurrent maxillary sinusitis J01.00 [place] [address] [address] Oct, Hypokalemia E87.6 [facility] [address] [facility] [id number] [address] [place] [address] Oct, Wasp sting, undetermined int ent, initial encounter T63.464A and Cellulitis of left lower extremity L03.116 [facility] [address] [address] Oct, Neuroforaminal stenosis of spine M99.89 [place] [address] [address] 24 Sep, 2018 [place] [address] [address] Sep, [place] [address] [address] 18 Sep, 2018 Routine screening for STI (sexually veronica smitted infection) Z11.[address] [address] 14 Sep, 2018 Routine screening for STI (sexually veronica smitted infection) Z11.3 ; Well woman exam with routine gynecological exam Z01.419 and Breast cancer screening Z12.[address] [address] Sep, Neuroforaminal stenosis of spine M99.[address] [address] August, Neuroforaminal stenosis of spine M99.[address] [address] August, Neuroforaminal stenosis of spine M99.89 ; Chronic pain due to trauma G89.21 and Mixed hyperlipidemia E78.[address] [address] Jul, Viral upper respiratory illness J06.9 an d Acute non-recurrent frontal sinusitis J01.[address] [address] Jul, Congestion of nasal sinus R09.[address] [address] Jul, Neuroforaminal stenosis of spine M99.89 and Essential hypertension I10 [address] [address] May, Neuroforaminal stenosis of spine M99.[address] [address] May, [place] [address] [address] May, Congestion of nasal sinus R09.81 [place] [address] [address] May, [place] [address] [address] Apr, Neuroforaminal stenosis of spine M99.89 [place] [address] [address] Apr, Neuroforaminal stenosis of spine M99.89 and Chronic pain due to trauma G89.21 [place] [address] [address] Mar, UTI (urinary tract infection) N39.0 [place] [address] [address] Mar, Vertigo R42 [place] [address] [address] Mar, Neuroforaminal stenosis of spine M99.89 [place] [address] [address] Feb, Extensor tendon disruption M67.89 [place] [address] [address] Feb, Neuroforaminal stenosis of spine M99.89 and High risk medication use Z79.899 [place] [address] [address] Jan, Hypokalemia E87.6 [place] [address] [address] Jan, Flank pain R10.9 and Acute right-sided l ow back pain without sciatica M54.5 [place] [address] [address] Jan, Hypokalemia E87.6 [place] [address] [address] Jan, [place] [address] [place] [address] Jan, URI, acute J06.9 [place] [address] [address] 05 Jan, 2018 Neuroforaminal stenosis of spine M99.89 [place] [address] [address] 13 Dec, 2017 Lateral epicondylitis, right elbow M77.1 1 [place] [address] [address] 11 Dec, 2017 Allergic rhinitis due to pollen, unspeci fied seasonality J30.1 and Allergic conjunctivitis of both eyes H10.13 [place] [address] [address] 10 Dec, 2017 Neuroforaminal stenosis of spine M99.89 [place] [address] [address] Dec, Mixed hyperlipidemia E78.2 [place] [address] [address] 05 Dec, 2017 Abnormal glucose R73.09 ; Abnormal renal ultrasound R93.429 ; Dysuria R30.0 ; Cystitis without hematuria N30.90 ; Hypokalemia E87.6 ; Mixed hyperlipidemia E78.2 and Hematuria, unspecified type R31.9 [place] [address] [address] Nov, Hypokalemia E87.6 ; Mixed hyperlipidemia E78.2 and Hematuria, unspecified type R31.9 [place] [address] [address] Nov, [place] [address] [address] Nov, Hypokalemia E87.6 [place] [address] [address] Nov, [facility] [address] [address] Nov, Abnormal renal ultrasound R93.429 [facility] [address] [address] Nov, Abnormal renal ultrasound R93.429 [place] [address] [address] Nov, Hematuria, unspecified type R31.9 and Ne uroforaminal stenosis of spine M99.89 [place] [address] [address] Nov, Dysuria R30.0 [place] [address] [address] Oct, Lateral epicondylitis, right elbow M77.1 1 [place] [address] [address] Oct, Neuroforaminal stenosis of spine M99.89 ; Visit for TB skin test Z11.1 and Essential hypertension I10 [place] [address] [address] Oct, [place] [address] [address] Oct, Neuroforaminal stenosis of spine M99.89 [place] [address] [address] Oct, Visit for TB skin test Z11.1 [place] [address] [address] Oct, Cystitis without hematuria N30.90 [place] [address] [address] Sep, Screening breast examination Z12.39 [place] [address] [address] Sep, Dysuria R30.0 and Cystitis without hemat uria N30.90 [place] [address] [address] 14 Sep, 2017 Essential hypertension I10 and Neurofora ingrid stenosis of spine M99.89 [place] [address] [address] 04 Sep, 2017 Abnormal glucose R73.09 [place] [address] [address] August, Lateral epicondylitis, right elbow M77.1 1 [place] [address] [address] August, Screen for STD (sexually transmitted dis ease) Z11.3 [place] [address] [address] August, Neuroforaminal stenosis of spine M99.89 ; Mixed hyperlipidemia E78.2 ; Elevated fasting glucose R73.01 ; Screening mammogram, encounter for Z12.31 and Encounter for well woman exam without gynecological exam Z00.00 [place] [address] [address] August, Neuroforaminal stenosis of spine M99.89 [place] [address] [address] August, Essential hypertension I10 ; Hypokalemia E87.6 and Mixed hyperlipidemia E78.2 [place] [address] [address] Jul, [place] [address] [address] Jul, Neuroforaminal stenosis of spine M99.89 [place] [address] [address] Jul, Lateral epicondylitis, right elbow M77.1 1 [place] [address] [address] Jul, [place] [address] [address] Jun, High ankle sprain of right lower extremi ty, initial encounter S93.431A [place] [address] [address] Jun, Essential hypertension I10 [place] [address] [address] Jun, [place] [address] [address] Jun, [place] [address] [address] Jun, Neuroforaminal stenosis of spine M99.89 [place] [address] [address] Jun, Pain of right upper extremity M79.601 an d Essential hypertension I10 [place] [address] [address] Jun, [place] [address] [address] Jun, Dysuria R30.0 ; Acute cystitis with keturah turia N30.01 and Screen for STD (sexually transmitted disease) Z11.3 [place] [address] [address] May, Chronic pain due to trauma G89.21 [place] [address] [address] May, Essential hypertension I10 [place] [address] [address] May, Neuroforaminal stenosis of spine M99.89 [place] [address] [address] Apr, Allergic reaction, initial encounter T78 .40XA [place] [address] [address] Apr, Low back pain, unspecified back pain lat erality, unspecified chronicity, with sciatica presence unspecified M54.5 ; Acute cystitis with hematuria N30.01 ; Neuroforaminal stenosis of spine M99.89 ; Bilateral acute serous otitis media, recurrence not specified H65.03 ; Mixed hyperlipidemia E78.2 ; Essential hypertension I10 ; Immunization counseling Z71.89 and Encounter for immunization Z23 [place] [address] [address] 08 Apr, 2017 Neck pain M54.2 [place] [address] [address] Mar, Neuroforaminal stenosis of spine M99.89 [place] [address] [address] Mar, Pharyngitis due to other organism J02.8 [place] [address] [address] Feb, Neuroforaminal stenosis of spine M99.89 [place] [address] [address] 08 Feb, 2017 UTI (urinary tract infection) N39.0 [place] [address] [address] 07 Feb, 2017 Recent urinary tract infection Z87.440 ; Neuroforaminal stenosis of spine M99.89 ; Neck pain M54.2 ; Chronic pain due to trauma G89.21 and Recurrent UTI N39.0 [place] [address] [address] 03 Feb, 2017 [place] [address] [address] Jan, Neuroforaminal stenosis of spine M99.89 [place] [address] [address] Dec, Neuroforaminal stenosis of spine M99.89 [place] [address] [address] 18 Dec, 2016 Acute seasonal allergic rhinitis due to pollen J30.1 [place] [address] [address] Dec, [place] [address] [address] Dec, Acute seasonal allergic rhinitis, unspec ified trigger J30.2 ; Allergic conjunctivitis of both eyes H10.13 and Dysfunction of both eustachian tubes H69.83 [place] [address] [address] 07 Dec, 2016 [place] [address] [address] Dec, Nevus D22.[address] [address] Nov, Chronic pain due to trauma G89.21 and Ne uroforaminal stenosis of spine M99.[address] [address] Nov, Neuroforaminal stenosis of spine M99.89 ; Essential hypertension I10 ; Mixed hyperlipidemia E78.2 ; Hypokalemia E87.6 ; Neck pain M54.2 and Nevus D22.9 [place] [address] [address] Oct, Neuroforaminal stenosis of spine M99.89 [place] [address] [address] Sep, Neuroforaminal stenosis of spine M99.89 [place] [address] [address] Sep, [place] [address] [address] August, [address] [address] August, Neck pain M54.2 and Neuroforaminal steno sis of spine M99.89 [facility] [address] [place] [id number] [place] [address] August, Routine gynecological examination Z01.41 9 and Screening breast examination Z12.39 [place] [address] [address] Jul, [facility] [address] [address] Jul, [facility] [address] [address] Jul, Neuroforaminal stenosis of spine M99.89 [facility] [address] [address] Jul, [place] [address] [address] Jul, 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 [place] [address] [address] Jul, [facility] [address] [address] Jul, [place] [address] [address] Jun, Neuroforaminal stenosis of spine M99.89 [place] [address] [address] Jun, Uterine leiomyoma, unspecified location D25.9 and Allergic reaction caused by a drug, initial encounter T78.40XA [facility] [address] [address] Jun, [place] [address] [address] May, UTI symptoms R39.9 and Pain of right sac roiliac joint M53.3 [place] [address] [address] May, Neuroforaminal stenosis of spine M99.89 [place] [address] [address] May, [place] [address] [address] May, Acute mucoid otitis media of left ear H6 5.112 and Acute non-recurrent maxillary sinusitis J01.00 [place] [address] [address] May, Acute bacterial conjunctivitis of both e yes H10.33 ; Left arm pain M79.602 and Hypokalemia E87.6 [place] [address] [address] Apr, [place] [address] [address] Apr, Neuroforaminal stenosis of spine M99.89 ; Neck pain M54.2 ; Chronic pain due to trauma G89.21 ; Mixed hyperlipidemia E78.2 ; Essential hypertension I10 and Hypokalemia E87.6 [place] [address] [address] Mar, Oral candidiasis B37.0 ; Neuroforaminal stenosis of spine M99.89 ; Neck pain M54.2 and Chronic pain due to trauma G89.21 [place] [address] [address] Feb, [place] [address] [address] Feb, [place] [address] [address] Feb, UTI (urinary tract infection) N39.0 [place] [address] [address] Feb, Dysuria R30.0 [place] [address] [address] Feb, Dysuria R30.0 [place] [address] [address] Feb, Neuroforaminal stenosis of spine M99.89 ; Neck pain M54.2 ; Essential hypertension I10 ; Chronic pain due to trauma G89.21 ; Dysuria R30.0 ; Abnormal MRI, shoulder R93.8 and Acute cystitis without hematuria N30.00 [facility] [address] [address] Jan, [facility] [address] [address] Jan, [facility] [address] [address] Jan, [facility] [address] [address] Jan, Abnormal MRI R93.8 [facility] [address] [address] 29 Dec, 2015 [facility] [address] [facility] [id number] [address] [address] 15 Dec, 2015 Acute pain of left shoulder M25.512 [facility] [address] [address] 09 Dec, 2015 [facility] [address] [address] 08 Dec, 2015 [facility] [address] [address] 07 Dec, 2015 Acute pain of left shoulder M25.512 [facility] [address] [address] Nov, [facility] [address] [address] Nov, Neuroforaminal stenosis of spine M99.89 ; Neck pain M54.2 ; Abnormal mammogram R92.8 ; Essential hypertension I10 and Chronic pain due to trauma G89.21 [facility] [address] [address] Nov, [facility] [address] [id number] [place] [address] Oct, Acute stress disorder F43.0 [facility] [address] [id number] [place] [address] Oct, [facility] [address] [place] [id number] [place] [address] Oct, [facility] [address] [place] [id number] [place] [address] Oct, [facility] [address] [place] [id number] [place] [address] Sep, [facility] [address] [place] [id number] [place] [address] August, [facility] [address] [place] [id number] [place] [address] Jul, Neuroforaminal stenosis of spine M99.89 ; Neck pain M54.2 ; Abnormal mammogram R92.8 and Essential hypertension I10 [facility] [address] [place] [id number] [place] [address] Jul, [facility] [address] [place] [id number] [place] [address] Jul, [facility] [address] [place] [id number] [place] [address] Jul, Abnormal mammogram R92.8 [facility] [address] [place] [id number] [place] [address] Jul, [facility] [address] [place] [id number] [place] [address] Jul, UTI (urinary tract infection) N39.0 [facility] [address] [place] [id number] [place] [address] Jul, Dysuria R30.0 [facility] [address] [place] [id number] [place] [address] Jun, [facility] [address] [address] 31 Jun, 2015 [facility] [address] [address] Jun, Hypokalemia E87.6 and Hematuria R31.9 [place] [address] [address] Jun, Hypokalemia E87.6 [place] [address] [address] Jun, [place] [address] [address] Jun, Hypokalemia E87.6 [place] [address] [address] Jun, Hypokalemia E87.6 [place] [address] [address] Jun, Neuroforaminal stenosis of spine M99.89 ; Hypokalemia E87.6 ; Neck pain M54.2 ; Essential hypertension I10 ; Mixed hyperlipidemia E78.2 and Screening breast examination Z12.39 [place] [address] [address] Jun, Dysuria R30.0 ; UTI (urinary tract infec tion) N39.0 and Hematuria R31.9 [place] [address] [address] May, [place] [address] [address] May, High risk sexual behavior Z72.51 ; Hypok alemia E87.6 ; Neuroforaminal stenosis of spine M99.89 ; Neck pain M54.2 ; Essential hypertension I10 ; Mixed hyperlipidemia E78.2 ; STD exposure Z20.2 and Concern about STD in female without diagnosis Z71.1 [place] [address] [address] 16 May, 2015 Neuroforaminal stenosis of spine M99.89 ; Neck pain M54.2 ; Hypokalemia E87.6 ; Essential hypertension I10 and Mixed hyperlipidemia E78.2 [facility] [address] [address] 11 May, [address] [facility] [address] [facility] [id number] [address] [place] [address] 08 May, 2015 High risk sexual behavior Z7 2.51 ; STD exposure Z20.2 and Concern about STD in female without diagnosis Z71.1 [facility] [address] [address] May, [facility] [address] [address] Apr, Neuroforaminal stenosis of spine M99.89 ; Mixed hyperlipidemia E78.2 ; Essential hypertension I10 and Hypokalemia E87.6 [place] [address] [address] Mar, [facility] [address] [address] Mar, Hypokalemia E87.6 [place] [address] [address] Mar, Neuroforaminal stenosis of spine M99.89 ; Mixed hyperlipidemia E78.2 ; Neck pain M54.2 ; Essential hypertension I10 ; Abnormal fasting glucose R73.09 ; Hypokalemia E87.6 and Constipation K59.00 [facility] [address] [address] Feb, Neuroforaminal stenosis of spine M99.89 ; Mixed hyperlipidemia E78.2 ; Neck pain M54.2 ; Essential hypertension I10 ; Abnormal fasting glucose R73.09 ; Hypokalemia E87.6 and Constipation K59.00 [place] [address] [address] Feb, Elevated fasting blood sugar R73.01 [place] [address] [address] Feb, Elevated fasting blood sugar R73.01 [place] [address] [address] Feb, Hair loss L65.9 [place] [address] [address] Feb, Sinusitis J32.9 ; Essential hypertension I10 and Hair loss L65.9 [place] [address] [address] Jan, [address] [address] Jan, Essential hypertension I10 ; Neuroforami nal stenosis of spine M99.89 ; Neck pain M54.2 ; Mixed hyperlipidemia E78.2 and Anxiety F41.9 [place] [address] [address] Jan, [place] [address] [address] Jan, Mixed hyperlipidemia E78.2 ; Essential ( primary) hypertension I10 ; Strain of muscle, fascia and tendon at neck level, subsequent encounter S16.1XXD and Tension-type headache, unspecified, not intractable G44.209 [place] [address] [address] Dec, Lumbar back pain 724.2 and Neuroforamina l stenosis of spine 724.00 [place] [address] [address] Nov, [address] [address] Nov, Lumbar back pain 724.2 and Neuroforamina l stenosis of spine 724.00 [place] [address] [address] Nov, Edema 782.3 ; Lumbar back pain 724.2 ; E ssential hypertension, benign 401.1 ; Hyperlipemia 272.4 ; Neuroforaminal stenosis of spine 724.00 and Post- concussion headache 339.20 [place] [address] [address] Nov, [place] [address] [address] Nov, [place] [address] [address] Oct, Essential hypertension, benign 401.1 [place] [address] [address] Oct, Edema 782.3 ; Lumbar back pain 724.2 ; E ssential hypertension, benign 401.1 ; Hyperlipemia 272.4 ; Neuroforaminal stenosis of spine 724.00 and Post- concussion headache 339.20 [place] [address] [address] Oct, [place] [address] [address] Oct, Edema 782.[address] [address] Oct, Lumbar back pain 724.[address] [address] Oct, Cervicalgia 723.1 ; Lumbar back pain 724 .2 and High risk medication use V58.69 [place] [address] [address] Sep, [address] [address] Sep, Lumbar strain 847.[address] [address] August, Edema 782.3 and Eustachian tube dysfunct ion 381.81 [place] [address] [address] August, [facility] [id number] [place] [address] August, Eustachian tube dysfunction 381.81 [facility] [address] [id number] [place] [address] 29 Jul, 2014 Otalgia 388.70 and Otitis media 382.9 [facility] [id number] [place] [address] Jul, [facility] [id number] [place] [address] Jul, [facility] [id number] [place] [address] Jul, [facility] [id number] [place] [address] Jul, [facility] [id number] [place] [address] Jul, [facility] [address] [id number] [place] [address] Jun, [facility] [id number] [place] [address] Jun, [facility] [id number] [place] [address] Jun, [facility] [id number] [place] [address] May, [facility] [id number] [place] [address] May, [facility] [id number] [place] [address] May, [facility] [id number] [place] [address] May, [facility] [id number] [place] [address] May, [facility] [id number] [place] [address] May, [facility] [place] [facility] [address] [id number] [place] [address] May, [facility] [place] [facility] [address] [id number] [place] [address] May, [facility] [place] [facility] [address] [id number] [place] [address] May, [facility] [place] [facility] [address] [id number] [place] [address] May, [facility] [place] [facility] [address] [id number] [place] [address] Apr, [facility] [place] [facility] [address] [id number] [place] [address] Apr, [facility] [place] [facility] [address] [id number] [place] [address] Apr, [facility] [place] [facility] [address] [id number] [place] [address] Apr, [facility] [place] [facility] [address] [id number] [place] [address] Apr, [facility] [place] [facility] [address] [id number] [place] [address] Apr, [facility] [place] [facility] [address] [id number] [place] [address] Apr, [facility] [place] [facility] [address] [id number] [place] [address] Apr, [facility] [place] [facility] [address] [id number] [place] [address] Apr, [facility] [place] [facility] [id number] [place] [address] Apr, [facility] [place] [facility] [address] [id number] [place] [address] Apr, [facility] [place] [facility] [id number] [place] [address] Apr, [facility] [place] [facility] [address] [id number] [place] [address] Apr, [facility] [place] [facility] [address] [id number] [place] [address] Apr, [facility] [place] [facility] [address] [id number] [place] [address] Apr, [facility] [place] [facility] [address] [id number] [place] [address] Mar, [facility] [place] [facility] [address] [id number] [place] [address] Mar, [facility] [place] [facility] [address] [id number] [place] [address] Mar, [facility] [place] [facility] [address] [id number] [place] [address] Mar, [facility] [place] [facility] [id number] [place] [address] Feb, [facility] [place] [facility] [address] [id number] [place] [address] Feb, [facility] [place] [facility] [address] [id number] [place] [address] Feb, [facility] [place] [facility] [address] [id number] [place] [address] Feb, [facility] [place] [facility] [address] [id number] [place] [address] Jan, [facility] [place] [facility] [address] [id number] [place] [address] Jan, [facility] [place] [facility] [address] [id number] [place] [address] Jan, [facility] [place] [facility] [address] [id number] [place] [address] Jan, [facility] [place] [facility] [address] [id number] [place] [address] Jan, [facility] [place] [facility] [address] [id number] [place] [address] Jan, [facility] [place] [facility] [address] [facility] [id number] [facility] [place] [address] Jan, [facility] [place] [facility] [address] [facility] [id number] [facility] [place] [address] Jan, [facility] [place] [facility] [address] [id number] [facility] [place] [address] Dec, [facility] [place] [facility] [address] [facility] [id number] [place] [address] Dec, [facility] [place] [facility] [address] [facility] [id number] [facility] [place] [address] Dec, [facility] [place] [facility] [address] [id number] [place] [address] Dec, [facility] [place] [facility] [address] [id number] [place] [address] Oct, [facility] [place] [facility] [address] [id number] [place] [address] Oct, 2013 [facility] [place] [facility] [address] [id number] [place] [address] Oct, [facility] [place] [facility] [address] [id number] [place] [address] Oct, 2013 [facility] [place] [facility] [address] [id number] [place] [address] Oct, 2013 [facility] [place] [facility] [address] [id number] [place] [address] Oct, 2013 [facility] [place] [facility] [address] [id number] [place] [address] Oct, 2013 [facility] [place] [facility] [address] [id number] [place] [address] Oct, 2013 [facility] [place] [facility] [address] [id number] [place] [address] Sep, [facility] [place] [facility] [address] [id number] [place] [address] Sep, [facility] [place] [facility] [address] [id number] [facility] [place] [address] Sep, [facility] [place] [facility] [address] [id number] [place] [address] Sep, [facility] [place] [facility] [address] [facility] [id number] [place] [address] Sep, [facility] [place] [facility] [address] [id number] [place] [address] Sep, [facility] [place] [facility] [address] [facility] [id number] [place] [address] Sep, [facility] [place] [facility] [address] [facility] [id number] [place] [address] Sep, [facility] [place] [facility] [address] [id number] [place] [address] Sep, [facility] [place] [facility] [address] [id number] [place] [address] Sep, [facility] [place] [facility] [address] [id number] [place] [address] August, [facility] [place] [facility] [address] [facility] [id number] [place] [address] August, [facility] [place] [facility] [address] [id number] [place] [address] August, [facility] [place] [facility] [address] [id number] [place] [address] August, [facility] [place] [facility] [address] [id number] [place] [address] August, [facility] [place] [facility] [address] [facility] [id number] [place] [address] August, [facility] [place] [facility] [address] [id number] [place] [address] August, [facility] [place] [facility] [address] [id number] [place] [address] August, [facility] [place] [facility] [address] [id number] [place] [address] August, [facility] [place] [facility] [address] [id number] [place] [address] August, [facility] [place] [facility] [address] [id number] [place] [address] August, [facility] [place] [facility] [address] [id number] [place] [address] August, [facility] [place] [facility] [address] [id number] [place] [address] Jul, [facility] [place] [facility] [address] [id number] [place] [address] Jul, [facility] [place] [facility] [address] [id number] [place] [address] Jul, [facility] [place] [facility] [address] [id number] [place] [address] Jul, [facility] [place] [facility] [address] [id number] [place] [address] Jul, [facility] [place] [facility] [address] [id number] [place] [address] Jul, [facility] [place] [facility] [address] [id number] [place] [address] Jun, [facility] [place] [facility] [address] [id number] [place] [address] Jun, [facility] [place] [facility] [address] [id number] [place] [address] May, [facility] [place] [facility] [address] [id number] [place] [address] May, [facility] [place] [facility] [address] [id number] [place] [address] Apr, [facility] [place] [facility] [address] [id number] [place] [address] Apr, [facility] [place] [facility] [address] [id number] [place] [address] Apr, [facility] [place] [facility] [address] [id number] [place] [address] Apr, [facility] [place] [facility] [address] [id number] [place] [address] Apr, [facility] [place] [facility] [address] [id number] [place] [address] Apr, [facility] [place] [facility] [address] [id number] [place] [address] Apr, [facility] [place] [facility] [address] [id number] [place] [address] Apr, [facility] [place] [facility] [address] [id number] [place] [address] Apr, [facility] [place] [facility] [address] [id number] [place] [address] Apr, [facility] [place] [facility] [address] [id number] [place] [address] Apr, [facility] [place] [facility] [address] [id number] [place] [address] Apr, [facility] [place] [facility] [address] [id number] [place] [address] Apr, [facility] [place] [facility] [address] [id number] [place] [address] Mar, [facility] [place] [facility] [address] [id number] [place] [address] Mar, [facility] [place] [facility] [address] [id number] [place] [address] Mar, [facility] [place] [facility] [address] [id number] [place] [address] Mar, [facility] [place] [facility] [address] [id number] [place] [address] Feb, [facility] [place] [facility] [address] [id number] [place] [address] Feb, [facility] [place] [facility] [address] [id number] [place] [address] Feb, [facility] [place] [facility] [address] [id number] [place] [address] 08 Feb, 2013 [facility] [place] [facility] [address] [facility] [id number] [place] [address] 14 Jan, 2013 [facility] [place] [facility] [address] [id number] [place] [address] 14 Jan, 2013 [facility] [place] [facility] [address] [id number] [place] [address] 11 Jan, 2013 [facility] [place] [facility] [address] [id number] [place] [address] 11 Jan, 2013 [facility] [place] [facility] [address] [id number] [place] [address] 10 Jan, 2013 [facility] [place] [facility] [address] [id number] [place] [address] 10 Jan, 2013 [facility] [place] [facility] [address] [id number] [place] [address] 09 Jan, 2013 [facility] [place] [facility] [address] [id number] [place] [address] 09 Jan, 2013 [facility] [place] [facility] [address] [id number] [place] [address] Jan, [facility] [place] [facility] [address] [id number] [place] [address] 26 Dec, 2012 [facility] [place] [facility] [address] [id number] [place] [address] 16 Dec, 2012 [facility] [place] [facility] [address] [id number] [place] [address] 16 Dec, 2012 [facility] [place] [facility] [address] [id number] [place] [address] 13 Dec, 2012 [facility] [place] [facility] [address] [id number] [place] [address] 17 Nov, 2012 [facility] [place] [facility] [address] [id number] [place] [address] 17 Nov, 2012 [facility] [place] [facility] [address] [id number] [place] [address] Nov, [facility] [address] [id number] [place] [address] Nov, [facility] [place] [facility] [address] [id number] [place] [address] Oct, [facility] [place] [facility] [address] [id number] [place] [address] Sep, [facility] [place] [facility] [address] [id number] [place] [address] August, [facility] [place] [facility] [address] [facility] [id number] [place] [address] August, [facility] [address] [id number] [place] [address] August, [facility] [place] [facility] [address] [id number] [place] [address] August, [facility] [place] [facility] [address] [id number] [place] [address] August, [facility] [place] [facility] [address] [id number] [place] [address] August, [facility] [place] [facility] [address] [id number] [place] [address] August[facility] [place] [facility] [address] [id number] [place] [address] August, [facility] [place] [facility] [address] [id number] [place] [address] August, [facility] [place] [facility] [address] [id number] [place] [address] August, [facility] [place] [facility] [address] [id number] [place] [address] August, [facility] [place] [facility] [address] [id number] [place] [address] August, [facility] [place] [facility] [address] [id number] [place] [address] Jul, [facility] [place] [facility] [address] [id number] [place] [address] Jul, [facility] [place] [facility] [address] [facility] [id number] [facility] [place] [address] 18 Jul, 2012 [facility] [place] [facility] [address] [id number] [place] [address] 15 Jul, 2012 [facility] [place] [facility] [address] [id number] [place] [address] Jul, [facility] [place] [facility] [address] [id number] [place] [address] 08 Jul, 2012 [facility] [place] [facility] [address] [id number] [facility] [place] [address] Jul, [facility] [place] [facility] [address] [id number] [place] [address] Jul, [facility] [place] [facility] [address] [id number] [place] [address] Jul, [facility] [place] [facility] [address] [id number] [place] [address] Jul, [facility] [place] [facility] [address] [id number] [place] [address] Jul, [facility] [place] [facility] [address] [id number] [place] [address] Jun, [facility] [place] [facility] [address] [id number] [place] [address] Jun, [facility] [place] [facility] [address] [id number] [place] [address] Jun, [facility] [place] [facility] [address] [id number] [place] [address] Jun, [facility] [place] [facility] [address] [id number] [place] [address] May, [facility] [place] [facility] [address] [id number] [place] [address] 14 May, 2012 [facility] [place] [facility] [address] [id number] [place] [address] 05 May, 2012 [facility] [place] [facility] [address] [id number] [place] [address] May, [facility] [place] [facility] [address] [id number] [place] [address] May, [facility] [place] [facility] [address] [id number] [place] [address] May, [facility] [place] [facility] [address] [id number] [place] [address] Apr, [facility] [place] [facility] [address] [id number] [place] [address] Apr, [facility] [place] [facility] [address] [id number] [place] [address] Apr, [facility] [place] [facility] [address] [id number] [place] [address] Apr, [facility] [place] [facility] [address] [id number] [place] [address] 15 Mar, 2012 [facility] [place] [facility] [address] [id number] [place] [address] Mar, [facility] [place] [facility] [address] [id number] [place] [address] Mar, [facility] [place] [facility] [address] [id number] [place] [address] Mar, [facility] [address] [id number] [place] [address] Mar, [facility] [address] [id number] [place] [address] Mar, [facility] [address] [id number] [place] [address] Mar, [facility] [address] [id number] [place] [address] Feb, [facility] [address] [id number] [place] [address] Feb, [facility] [address] [id number] [place] [address] Feb, [facility] [address] [id number] [place] [address] Feb, [facility] [address] [id number] [place] [address] Jan, [facility] [address] [id number] [place] [address] Jan, [facility] [address] [id number] [place] [address] Jan, [facility] [address] [id number] [place] [address] Jan, [facility] [address] [id number] [place] [address] Jan, [facility] [address] [id number] [place] [address] Jan, [facility] [address] [id number] [place] [address] Dec, [facility] [address] [id number] [place] [address] Dec, [facility] [address] [id number] [place] [address] Nov, [facility] [address] [id number] [place] [address] Sep, [facility] [address] [id number] [place] [address] August, [facility] [address] [id number] [place] [address] August, [facility] [address] [id number] [place] [address] August, [facility] [address] [id number] [place] [address] August, [facility] [address] [id number] [place] [address] August, [facility] [address] [id number] [place] [address] Jun, [facility] [address] [id number] [place] [address] Jun, [facility] [address] [id number] [place] [address] Apr, [facility] [address] [id number] [place] [address] Apr, [facility] [address] [id number] [place] [address] Mar, [facility] [address] [id number] [place] [address] Feb, [facility] [address] [id number] [place] [address] Feb, [facility] [id number] [place] [address] Feb, [facility] [id number] [place] [address] 17 Jan, 2011 [facility] [address] [id number] [place] [address] 15 Jan, 2011 [facility] [id number] [place] [address] 15 Jan, 2011 [facility] [address] [id number] [place] [address] 14 Jan, 2011 [facility] [address] [id number] [place] [address] 15 May, 2010 [facility] [address] [id number] [place] [address] Mar, [facility] [id number] [place] [address] Oct, [facility] [address] [id number] [place] [address] Sep, [facility] [id number] [place] [address] Mar, [facility] [address] [id number] [place] [address] Jan, [facility] [address] [id number] [place] [address] Jan, [facility] [address] [id number] [place] [address] May, IMMUNIZATIONS No Known Immunizations SOCIAL HISTORY [...]
--- OUTSIDE RECORDS SUMMARY | 2019-11-23 06:24 | XMS REPORT ---
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 Active 932317846879 Problem Neck pain M54.2 Active 03263278 Problem Chronic pain due to trauma G89.21 Act juanis [id number] Problem Hematuria, unspecified type R31.9 Ac tive 35538393 Problem Seasonal allergies J30.2 Active 4 11420166 Problem Abnormal glucose R73.09 Active 102 363063 Problem Anxiety F41.9 Active 47927001 Problem Essential hypertension I10 Active 46969569 Problem Mixed hyperlipidemia E78.2 Active 47256690 Problem Hypokalemia E87.6 Active 99792087 ALLERGIES No Information ENCOUNTERS Encounter Location Date Diagnosis [place] [address] [address] 14 May, 2019 [place] [address] [address] Apr, Neuroforaminal stenosis of spine M99.89 [place] [address] [address] Apr, Essential hypertension I10 and Mixed hyp erlipidemia E78.2 [place] [address] [address] Mar, Neuroforaminal stenosis of spine M99.89 [place] [address] [address] Mar, Epicondylitis, lateral, left M77.12 [place] [address] [address] Mar, [place] [address] [address] Mar, Neuroforaminal stenosis of spine M99.89 [place] [address] [address] Feb, Neuroforaminal stenosis of spine M99.89 ; Essential hypertension I10 ; Mixed hyperlipidemia E78.2 ; Encounter for immunization Z23 and Seasonal allergies J30.2 [place] [address] [address] Jan, Neuroforaminal stenosis of spine M99.89 [place] [address] [address] Dec, Neuroforaminal stenosis of spine M99.89 [place] [address] [address] Dec, Neuroforaminal stenosis of spine M99.89 [place] [address] [address] Nov, [place] [address] [address] Nov, Neuroforaminal stenosis of spine M99.89 [place] [address] [address] Nov, Acute non-recurrent maxillary sinusitis J01.00 [facility] [address] [address] Oct, Hypokalemia E87.6 [facility] [address] [address] [facility] [id number] [address] [place] [address] Oct, Wasp sting, undetermined int ent, initial encounter T63.464A and Cellulitis of left lower extremity L03.116 [place] [address] [address] Oct, Neuroforaminal stenosis of spine M99.89 [place] [address] [address] Sep, [place] [address] [address] 24 Sep, 2018 [place] [address] [address] 18 Sep, 2018 Routine screening for STI (sexually veronica smitted infection) Z11.3 [place] [address] [address] 14 Sep, 2018 Routine screening for STI (sexually veronica smitted infection) Z11.3 ; Well woman exam with routine gynecological exam Z01.419 and Breast cancer screening Z12.39 [place] [address] [address] 10 Sep, 2018 Neuroforaminal stenosis of spine M99.89 [place] [address] [address] August, Neuroforaminal stenosis of spine M99.89 [place] [address] [address] August, Neuroforaminal stenosis of spine M99.89 ; Chronic pain due to trauma G89.21 and Mixed hyperlipidemia E78.2 [place] [address] [address] Jul, Viral upper respiratory illness J06.9 an d Acute non-recurrent frontal sinusitis J01.10 [place] [address] [address] Jul, Congestion of nasal sinus R09.81 [place] [address] [address] Jul, Neuroforaminal stenosis of spine M99.89 and Essential hypertension I10 [place] [address] [address] May, Neuroforaminal stenosis of spine M99.89 [facility] [address] [address] May, [facility] [address] [address] May, Congestion of nasal sinus R09.81 [facility] [address] [address] May, [place] [address] [address] Apr, Neuroforaminal stenosis of spine M99.89 [place] [address] [address] Apr, Neuroforaminal stenosis of spine M99.89 and Chronic pain due to trauma G89.21 [place] [address] [address] Mar, UTI (urinary tract infection) N39.0 [place] [address] [address] Mar, Vertigo R42 [place] [address] [address] Mar, Neuroforaminal stenosis of spine M99.89 [place] [address] [address] Feb, Extensor tendon disruption M67.89 [place] [address] [address] Feb, Neuroforaminal stenosis of spine M99.89 and High risk medication use Z79.899 [place] [address] [address] Jan, Hypokalemia E87.6 [place] [address] [address] Jan, Flank pain R10.9 and Acute right-sided l ow back pain without sciatica M54.5 [place] [address] [address] Jan, Hypokalemia E87.6 [place] [address] [address] Jan, [place] [address] [place] [id number] Jan, URI, acute J06.9 [place] [address] [address] Jan, Neuroforaminal stenosis of spine M99.89 [place] [address] [address] 13 Dec, 2017 Lateral epicondylitis, right elbow M77.1 1 [place] [address] [address] 11 Dec, 2017 Allergic rhinitis due to pollen, unspeci fied seasonality J30.1 and Allergic conjunctivitis of both eyes H10.13 [place] [address] [address] 10 Dec, 2017 Neuroforaminal stenosis of spine M99.89 [place] [address] [address] Dec, Mixed hyperlipidemia E78.2 [place] [address] [address] 05 Dec, 2017 Abnormal glucose R73.09 ; Abnormal renal ultrasound R93.429 ; Dysuria R30.0 ; Cystitis without hematuria N30.90 ; Hypokalemia E87.6 ; Mixed hyperlipidemia E78.2 and Hematuria, unspecified type R31.9 [place] [address] [address] Nov, Hypokalemia E87.6 ; Mixed hyperlipidemia E78.2 and Hematuria, unspecified type R31.9 [place] [address] [address] Nov, [place] [address] [address] Nov, Hypokalemia E87.6 [place] [address] [address] Nov, [place] [address] [address] Nov, Abnormal renal ultrasound R93.429 [place] [address] [address] Nov, Abnormal renal ultrasound R93.429 [place] [address] [address] Nov, Hematuria, unspecified type R31.9 and Ne uroforaminal stenosis of spine M99.89 [place] [address] [address] Nov, Dysuria R30.0 [place] [address] [address] Oct, Lateral epicondylitis, right elbow M77.1 1 [place] [address] [address] Oct, Neuroforaminal stenosis of spine M99.89 ; Visit for TB skin test Z11.1 and Essential hypertension I10 [place] [address] [address] Oct, [place] [address] [address] Oct, Neuroforaminal stenosis of spine M99.89 [place] [address] [address] Oct, Visit for TB skin test Z11.1 [place] [address] [address] 05 Oct, 2017 Cystitis without hematuria N30.90 [place] [address] [address] Sep, Screening breast examination Z12.39 [place] [address] [address] Sep, Dysuria R30.0 and Cystitis without hemat uria N30.90 [place] [address] [address] Sep, Essential hypertension I10 and Neurofora ingrid stenosis of spine M99.[address] [address] Sep, Abnormal glucose R73.[address] [address] August, Lateral epicondylitis, right elbow M77.[address] [address] August, Screen for STD (sexually transmitted dis ease) Z11.[address] [address] August, Neuroforaminal stenosis of spine M99.89 ; Mixed hyperlipidemia E78.2 ; Elevated fasting glucose R73.01 ; Screening mammogram, encounter for Z12.31 and Encounter for well woman exam without gynecological exam Z00.[address] [address] August, Neuroforaminal stenosis of spine M99.[address] [address] August, Essential hypertension I10 ; Hypokalemia E87.6 and Mixed hyperlipidemia E78.[address] [address] Jul, [address] [address] Jul, Neuroforaminal stenosis of spine M99.[address] [address] Jul, Lateral epicondylitis, right elbow M77.1 1 [place] [id number] [place] [address] Jul, [facility] [address] [address] Jun, High ankle sprain of right lower extremi ty, initial encounter S93.431A [facility] [address] [address] Jun, Essential hypertension I10 [facility] [address] [address] Jun, [facility] [address] [address] Jun, [place] [address] [address] Jun, Neuroforaminal stenosis of spine M99.89 [place] [address] [address] Jun, Pain of right upper extremity M79.601 an d Essential hypertension I10 [place] [address] [address] Jun, [place] [address] [address] Jun, Dysuria R30.0 ; Acute cystitis with keturah turia N30.01 and Screen for STD (sexually transmitted disease) Z11.3 [place] [address] [address] May, Chronic pain due to trauma G89.21 [place] [address] [address] May, Essential hypertension I10 [place] [address] [address] May, Neuroforaminal stenosis of spine M99.89 [facility] [address] [address] Apr, Allergic reaction, initial encounter T78 .40XA [place] [address] [address] Apr, Low back pain, unspecified back pain lat erality, unspecified chronicity, with sciatica presence unspecified M54.5 ; Acute cystitis with hematuria N30.01 ; Neuroforaminal stenosis of spine M99.89 ; Bilateral acute serous otitis media, recurrence not specified H65.03 ; Mixed hyperlipidemia E78.2 ; Essential hypertension I10 ; Immunization counseling Z71.89 and Encounter for immunization Z23 [place] [address] [address] 08 Apr, 2017 Neck pain M54.2 [place] [address] [address] Mar, Neuroforaminal stenosis of spine M99.89 [place] [address] [address] Mar, Pharyngitis due to other organism J02.8 [place] [address] [address] Feb, Neuroforaminal stenosis of spine M99.89 [place] [address] [address] 08 Feb, 2017 UTI (urinary tract infection) N39.0 [place] [address] [address] 07 Feb, 2017 Recent urinary tract infection Z87.440 ; Neuroforaminal stenosis of spine M99.89 ; Neck pain M54.2 ; Chronic pain due to trauma G89.21 and Recurrent UTI N39.0 [place] [address] [address] Feb, [address] [address] Jan, Neuroforaminal stenosis of spine M99.89 [place] [address] [address] Dec, Neuroforaminal stenosis of spine M99.89 [place] [address] [address] 18 Dec, 2016 Acute seasonal allergic rhinitis due to pollen J30.1 [place] [address] [address] 08 Dec, 2016 [place] [address] [address] 08 Dec, 2016 Acute seasonal allergic rhinitis, unspec ified trigger J30.2 ; Allergic conjunctivitis of both eyes H10.13 and Dysfunction of both eustachian tubes H69.83 [place] [address] [address] 07 Dec, 2016 [place] [address] [address] Dec, Nevus D22.9 [place] [address] [address] Nov, Chronic pain due to trauma G89.21 and Ne uroforaminal stenosis of spine M99.89 [place] [address] [address] Nov, Neuroforaminal stenosis of spine M99.89 ; Essential hypertension I10 ; Mixed hyperlipidemia E78.2 ; Hypokalemia E87.6 ; Neck pain M54.2 and Nevus D22.9 [place] [address] [address] Oct, Neuroforaminal stenosis of spine M99.89 [place] [address] [address] Sep, Neuroforaminal stenosis of spine M99.89 [place] [address] [address] Sep, [place] [address] [address] August, [place] [address] [address] August, Neck pain M54.2 and Neuroforaminal steno sis of spine M99.89 [facility] [address] [address] August, Routine gynecological examination Z01.41 9 and Screening breast examination Z12.39 [facility] [address] [address] Jul, [facility] [address] [address] Jul, [place] [address] [address] Jul, Neuroforaminal stenosis of spine M99.89 [place] [address] [address] Jul, [place] [address] [address] Jul, 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 [place] [address] [address] Jul, [place] [address] [address] Jul, [place] [address] [address] Jun, Neuroforaminal stenosis of spine M99.89 [place] [address] [address] Jun, Uterine leiomyoma, unspecified location D25.9 and Allergic reaction caused by a drug, initial encounter T78.40XA [place] [address] [address] Jun, [place] [address] [address] May, UTI symptoms R39.9 and Pain of right sac roiliac joint M53.3 [place] [address] [address] May, Neuroforaminal stenosis of spine M99.89 [place] [address] [address] May, [place] [address] [address] May, Acute mucoid otitis media of left ear H6 5.112 and Acute non-recurrent maxillary sinusitis J01.00 [place] [address] [address] May, Acute bacterial conjunctivitis of both e yes H10.33 ; Left arm pain M79.602 and Hypokalemia E87.6 [place] [address] [address] Apr, [place] [address] [address] Apr, Neuroforaminal stenosis of spine M99.89 ; Neck pain M54.2 ; Chronic pain due to trauma G89.21 ; Mixed hyperlipidemia E78.2 ; Essential hypertension I10 and Hypokalemia E87.6 [place] [address] [address] Mar, Oral candidiasis B37.0 ; Neuroforaminal stenosis of spine M99.89 ; Neck pain M54.2 and Chronic pain due to trauma G89.21 [place] [address] [address] Feb, [place] [address] [address] Feb, [place] [address] [address] Feb, UTI (urinary tract infection) N39.0 [place] [address] [address] Feb, Dysuria R30.0 [place] [address] [address] 08 Feb, 2016 Dysuria R30.0 [facility] [address] [address] Feb, Neuroforaminal stenosis of spine M99.89 ; Neck pain M54.2 ; Essential hypertension I10 ; Chronic pain due to trauma G89.21 ; Dysuria R30.0 ; Abnormal MRI, shoulder R93.8 and Acute cystitis without hematuria N30.00 [facility] [address] [address] Jan, [facility] [address] [address] Jan, [facility] [address] [address] Jan, [facility] [address] [address] Jan, Abnormal MRI R93.8 [facility] [address] [address] 29 Dec, 2015 [facility] [address] [facility] [id number] [address] [place] [address] 15 Dec, 2015 Acute pain of left shoulder M25.512 [facility] [address] [id number] [place] [address] 09 Dec, 2015 [facility] [address] [address] 08 Dec, 2015 [facility] [address] [address] 07 Dec, 2015 Acute pain of left shoulder M25.512 [facility] [address] [address] Nov, [facility] [address] [address] Nov, Neuroforaminal stenosis of spine M99.89 ; Neck pain M54.2 ; Abnormal mammogram R92.8 ; Essential hypertension I10 and Chronic pain due to trauma G89.21 [facility] [address] [place] [id number] [place] [address] Nov, [facility] [address] [address] Oct, Acute stress disorder F43.0 [facility] [address] [address] Oct, [facility] [address] [address] Oct, [facility] [address] [address] Oct, [facility] [address] [address] Sep, [facility] [address] [address] August, [facility] [address] [address] Jul, Neuroforaminal stenosis of spine M99.89 ; Neck pain M54.2 ; Abnormal mammogram R92.8 and Essential hypertension I10 [facility] [address] [address] Jul, [facility] [address] [address] Jul, [facility] [address] [address] Jul, Abnormal mammogram R92.8 [facility] [address] [address] Jul, [facility] [address] [address] Jul, UTI (urinary tract infection) N39.0 [facility] [address] [address] Jul, Dysuria R30.0 [facility] [address] [address] 31 Jun, 2015 [facility] [address] [address] Jun, [facility] [address] [address] Jun, Hypokalemia E87.6 and Hematuria R31.9 [place] [address] [address] Jun, Hypokalemia E87.6 [place] [address] [address] Jun, [place] [address] [address] 18 Jun, 2015 Hypokalemia E87.6 [place] [address] [address] Jun, Hypokalemia E87.6 [place] [address] [address] 15 Jun, 2015 Neuroforaminal stenosis of spine M99.89 ; Hypokalemia E87.6 ; Neck pain M54.2 ; Essential hypertension I10 ; Mixed hyperlipidemia E78.2 and Screening breast examination Z12.39 [place] [address] [address] 08 Jun, 2015 Dysuria R30.0 ; UTI (urinary tract infec tion) N39.0 and Hematuria R31.9 [place] [address] [address] May, [place] [address] [address] 18 May, 2015 High risk sexual behavior Z72.51 ; Hypok alemia E87.6 ; Neuroforaminal stenosis of spine M99.89 ; Neck pain M54.2 ; Essential hypertension I10 ; Mixed hyperlipidemia E78.2 ; STD exposure Z20.2 and Concern about STD in female without diagnosis Z71.1 [place] [id number] [address] 16 May, 2015 Neuroforaminal stenosis of spine M99.89 ; Neck pain M54.2 ; Hypokalemia E87.6 ; Essential hypertension I10 and Mixed hyperlipidemia E78.2 [facility] [address] [address] 11 May, 2015 [facility] [address] [facility] [id number] [address] [address] 08 May, 2015 High risk sexual behavior Z7 2.51 ; STD exposure Z20.2 and Concern about STD in female without diagnosis Z71.1 [place] [address] [address] 05 May, 2015 [facility] [address] [address] Apr, Neuroforaminal stenosis of spine M99.89 ; Mixed hyperlipidemia E78.2 ; Essential hypertension I10 and Hypokalemia E87.6 [place] [address] [address] Mar, [place] [address] [address] Mar, Hypokalemia E87.6 [place] [address] [address] Mar, Neuroforaminal stenosis of spine M99.89 ; Mixed hyperlipidemia E78.2 ; Neck pain M54.2 ; Essential hypertension I10 ; Abnormal fasting glucose R73.09 ; Hypokalemia E87.6 and Constipation K59.00 [place] [address] [address] Feb, Neuroforaminal stenosis of spine M99.89 ; Mixed hyperlipidemia E78.2 ; Neck pain M54.2 ; Essential hypertension I10 ; Abnormal fasting glucose R73.09 ; Hypokalemia E87.6 and Constipation K59.00 [place] [address] [address] Feb, Elevated fasting blood sugar R73.01 [place] [address] [address] Feb, Elevated fasting blood sugar R73.01 [place] [address] [address] Feb, Hair loss L65.9 [place] [address] [address] Feb, Sinusitis J32.9 ; Essential hypertension I10 and Hair loss L65.9 [place] [address] [address] Jan, [place] [address] [address] Jan, Essential hypertension I10 ; Neuroforami nal stenosis of spine M99.89 ; Neck pain M54.2 ; Mixed hyperlipidemia E78.2 and Anxiety F41.9 [place] [address] [address] Jan, [place] [address] [address] Jan, Mixed hyperlipidemia E78.2 ; Essential ( primary) hypertension I10 ; Strain of muscle, fascia and tendon at neck level, subsequent encounter S16.1XXD and Tension-type headache, unspecified, not intractable G44.209 [place] [address] [address] Dec, Lumbar back pain 724.2 and Neuroforamina l stenosis of spine 724.00 [place] [address] [address] Nov, [address] [address] Nov, Lumbar back pain 724.2 and Neuroforamina l stenosis of spine 724.00 [place] [address] [address] Nov, Edema 782.3 ; Lumbar back pain 724.2 ; E ssential hypertension, benign 401.1 ; Hyperlipemia 272.4 ; Neuroforaminal stenosis of spine 724.00 and Post- concussion headache 339.20 [facility] [address] [address] Nov, [place] [address] [address] Nov, [place] [address] [address] Oct, Essential hypertension, benign 401.1 [place] [address] [address] Oct, Edema 782.3 ; Lumbar back pain 724.2 ; E ssential hypertension, benign 401.1 ; Hyperlipemia 272.4 ; Neuroforaminal stenosis of spine 724.00 and Post- concussion headache 339.20 [place] [address] [address] Oct, [place] [address] [address] Oct, Edema 782.3 [place] [address] [address] Oct, Lumbar back pain 724.2 [place] [address] [address] Oct, Cervicalgia 723.1 ; Lumbar back pain 724 .2 and High risk medication use V58.69 [place] [address] [address] Sep, [place] [address] [address] Sep, Lumbar strain 847.2 [place] [address] [address] August, Edema 782.3 and Eustachian tube dysfunct ion 381.81 [facility] [id number] [place] [address] August, [facility] [id number] [place] [address] August, Eustachian tube dysfunction 381.81 [facility] [id number] [place] [address] Jul, Otalgia 388.70 and Otitis media 382.9 [facility] [id number] [place] [address] Jul, [facility] [address] [address] Jul, [facility] [id number] [place] [address] Jul, [facility] [address] [address] Jul, [facility] [id number] [place] [address] Jul, [facility] [address] [address] Jun, [facility] [id number] [place] [address] Jun, [facility] [id number] [place] [address] Jun, [facility] [id number] [place] [address] May, [facility] [id number] [place] [address] May, [facility] [id number] [place] [address] May, [facility] [id number] [place] [address] May, [facility] [id number] [facility] [place] [address] May, 2014 [facility] [address] [facility] [address] [facility] [id number] [place] [address] May, [facility] [address] [id number] [place] [address] May, [facility] [address] [id number] [place] [address] May, [facility] [address] [id number] [place] [address] May, [facility] [address] [id number] [place] [address] May, [facility] [address] [id number] [place] [address] Apr, [facility] [address] [id number] [place] [address] Apr, [facility] [address] [id number] [place] [address] Apr, [facility] [address] [id number] [place] [address] Apr, [facility] [address] [id number] [place] [address] Apr, [facility] [address] [id number] [place] [address] Apr, [facility] [address] [id number] [place] [address] Apr, [facility] [address] [id number] [place] [address] Apr, [facility] [address] [id number] [place] [address] Apr, [facility] [address] [id number] [place] [address] Apr, [facility] [address] [id number] [place] [address] Apr, [facility] [address] [id number] [place] [address] Apr, [facility] [address] [id number] [place] [address] Apr, [facility] [address] [id number] [place] [address] Apr, [facility] [address] [id number] [place] [address] Apr, [facility] [address] [id number] [place] [address] Mar, [facility] [address] [id number] [place] [address] Mar, [facility] [address] [id number] [place] [address] Mar, [facility] [id number] [place] [address] Mar, [facility] [address] [id number] [place] [address] Feb, [facility] [address] [id number] [place] [address] Feb, [facility] [address] [id number] [place] [address] Feb, [facility] [address] [id number] [place] [address] Feb, [facility] [address] [id number] [place] [address] Jan, [facility] [address] [id number] [place] [address] Jan, [facility] [address] [id number] [place] [address] Jan, [facility] [address] [id number] [place] [address] Jan, [facility] [address] [id number] [place] [address] Jan, [facility] [address] [facility] [id number] [place] [address] Jan, [facility] [address] [facility] [id number] [place] [address] Jan, [facility] [address] [id number] [place] [address] Jan, [facility] [address] [facility] [id number] [place] [address] Dec, [facility] [address] [facility] [id number] [place] [address] Dec, [facility] [address] [id number] [place] [address] Dec, [facility] [address] [id number] [place] [address] Dec, [facility] [address] [id number] [place] [address] Oct, 2013 [facility] [address] [id number] [place] [address] Oct, 2013 [facility] [address] [id number] [place] [address] Oct, [facility] [address] [id number] [place] [address] Oct, 2013 [facility] [address] [id number] [place] [address] Oct, 2013 [facility] [address] [id number] [place] [address] Oct, 2013 [facility] [address] [id number] [place] [address] Oct, 2013 [facility] [address] [id number] [place] [address] Oct, 2013 [facility] [address] [id number] [place] [address] Sep, [facility] [address] [id number] [place] [address] Sep, [facility] [address] [id number] [place] [address] Sep, [facility] [address] [facility] [id number] [place] [address] Sep, [facility] [address] [id number] [place] [address] Sep, [facility] [address] [facility] [id number] [place] [address] Sep, [facility] [address] [facility] [id number] [place] [address] Sep, [facility] [address] [id number] [place] [address] Sep, [facility] [address] [id number] [place] [address] Sep, [facility] [address] [id number] [place] [address] Sep, [facility] [address] [facility] [id number] [place] [address] August, [facility] [address] [id number] [place] [address] August, [facility] [address] [id number] [place] [address] August, [facility] [address] [id number] [place] [address] August, [facility] [address] [facility] [id number] [place] [address] August, [facility] [address] [id number] [place] [address] August, [facility] [address] [id number] [place] [address] August, [facility] [address] [id number] [place] [address] August, [facility] [address] [id number] [place] [address] August, [facility] [address] [id number] [place] [address] August, [facility] [address] [id number] [place] [address] August, [facility] [address] [id number] [place] [address] August, [facility] [address] [id number] [place] [address] Jul, [facility] [address] [id number] [place] [address] Jul, [facility] [address] [id number] [place] [address] Jul, [facility] [address] [id number] [place] [address] Jul, [facility] [address] [id number] [place] [address] Jul, [facility] [address] [id number] [place] [address] Jul, [facility] [address] [id number] [place] [address] Jun, [facility] [address] [id number] [place] [address] Jun, [facility] [address] [id number] [place] [address] May, [facility] [address] [id number] [place] [address] May, [facility] [address] [id number] [place] [address] Apr, [facility] [address] [id number] [place] [address] Apr, [facility] [address] [id number] [place] [address] Apr, [facility] [address] [id number] [place] [address] Apr, [facility] [address] [id number] [place] [address] Apr, [facility] [address] [id number] [place] [address] Apr, [facility] [address] [id number] [place] [address] Apr, [facility] [address] [id number] [place] [address] Apr, [facility] [address] [id number] [place] [address] Apr, [facility] [address] [id number] [place] [address] Apr, [facility] [address] [id number] [place] [address] Apr, [facility] [address] [id number] [place] [address] Apr, [facility] [address] [id number] [place] [address] Apr, [facility] [address] [id number] [place] [address] Mar, [facility] [address] [id number] [place] [address] Mar, [facility] [address] [id number] [place] [address] Mar, [facility] [address] [id number] [place] [address] Mar, [facility] [address] [id number] [place] [address] Feb, [facility] [address] [id number] [place] [address] Feb, [facility] [address] [id number] [place] [address] 08 Feb, 2013 [facility] [address] [id number] [place] [address] 08 Feb, 2013 [facility] [address] [id number] [place] [address] 14 Jan, 2013 [facility] [address] [id number] [place] [address] 14 Jan, 2013 [facility] [address] [id number] [place] [address] 11 Jan, 2013 [facility] [address] [id number] [place] [address] 11 Jan, 2013 [facility] [address] [id number] [place] [address] 10 Jan, 2013 [facility] [address] [id number] [place] [address] 10 Jan, 2013 [facility] [address] [id number] [place] [address] 09 Jan, 2013 [facility] [address] [id number] [place] [address] 09 Jan, 2013 [facility] [address] [id number] [place] [address] Jan, [facility] [address] [id number] [place] [address] 26 Dec, 2012 [facility] [address] [id number] [place] [address] 16 Dec, 2012 [facility] [address] [id number] [place] [address] 16 Dec, 2012 [facility] [address] [id number] [place] [address] 13 Dec, 2012 [facility] [address] [id number] [place] [address] 17 Nov, 2012 [facility] [address] [id number] [place] [address] Nov, [facility] [address] [id number] [place] [address] Nov, [facility] [address] [id number] [place] [address] Nov, [facility] [address] [id number] [place] [address] Oct, [facility] [address] [id number] [place] [address] Sep, [facility] [address] [facility] [id number] [place] [address] August, [facility] [address] [id number] [place] [address] August, [facility] [address] [id number] [place] [address] August, [facility] [address] [id number] [place] [address] August, [facility] [address] [id number] [place] [address] August, [facility] [address] [id number] [place] [address] August, [facility] [address] [id number] [place] [address] August, [facility] [address] [id number] [place] [address] August, [facility] [address] [id number] [place] [address] August, [facility] [address] [id number] [place] [address] August, [facility] [address] [id number] [place] [address] August, [facility] [address] [id number] [place] [address] August, [facility] [address] [id number] [place] [address] Jul, [facility] [address] [facility] [id number] [place] [address] Jul, [facility] [address] [id number] [place] [address] Jul, [facility] [address] [id number] [place] [address] 15 Jul, 2012 [facility] [address] [id number] [place] [address] Jul, [facility] [address] [id number] [place] [address] Jul, [facility] [address] [id number] [place] [address] Jul, [facility] [address] [id number] [place] [address] Jul, [facility] [address] [id number] [place] [address] Jul, [facility] [address] [id number] [place] [address] Jul, [facility] [address] [id number] [place] [address] Jul, [facility] [address] [id number] [place] [address] Jun, [facility] [address] [id number] [place] [address] Jun, [facility] [address] [id number] [place] [address] Jun, [facility] [address] [id number] [place] [address] Jun, [facility] [address] [id number] [place] [address] May, [facility] [address] [id number] [place] [address] 14 May, 2012 [facility] [address] [id number] [place] [address] 05 May, 2012 [facility] [address] [id number] [place] [address] May, [facility] [address] [id number] [place] [address] May, [facility] [address] [id number] [place] [address] May, [facility] [address] [id number] [place] [address] Apr, [facility] [address] [id number] [place] [address] Apr, [facility] [address] [id number] [place] [address] Apr, [facility] [address] [id number] [place] [address] Apr, [facility] [address] [id number] [place] [address] Mar, [facility] [address] [id number] [place] [address] Mar, [facility] [address] [id number] [place] [address] Mar, [facility] [address] [id number] [place] [address] 14 Mar, 2012 [facility] [address] [id number] [place] [address] 14 Mar, 2012 [facility] [address] [id number] [place] [address] Mar, [facility] [address] [id number] [place] [address] 06 Mar, 2012 [facility] [address] [id number] [place] [address] Feb, [facility] [address] [id number] [place] [address] Feb, [facility] [address] [id number] [place] [address] Feb, [facility] [address] [id number] [place] [address] Feb, [facility] [address] [id number] [place] [address] Jan, [facility] [address] [id number] [place] [address] Jan, [facility] [address] [id number] [place] [address] Jan, [facility] [address] [id number] [place] [address] Jan, [facility] [address] [id number] [place] [address] Jan, [facility] [address] [id number] [place] [address] Jan, [facility] [address] [id number] [place] [address] Dec, [facility] [address] [id number] [place] [address] Dec, [facility] [address] [id number] [place] [address] Nov, [facility] [address] [id number] [place] [address] Sep, [facility] [address] [id number] [place] [address] August, [facility] [address] [id number] [place] [address] August, [facility] [address] [id number] [place] [address] August, [facility] [address] [id number] [place] [address] August, [facility] [address] [id number] [place] [address] August, [facility] [address] [id number] [place] [address] Jun, [facility] [address] [id number] [place] [address] Jun, [facility] [address] [id number] [place] [address] Apr, [facility] [address] [id number] [place] [address] Apr, [facility] [address] [id number] [place] [address] Mar, [facility] [address] [id number] [place] [address] Feb, [facility] [id number] [place] [address] 14 Feb, 2011 [facility] [id number] [place] [address] 14 Feb, 2011 [facility] [address] [id number] [place] [address] 17 Jan, 2011 [facility] [id number] [place] [address] 15 Jan, 2011 [facility] [id number] [place] [address] 15 Jan, 2011 [facility] [address] [id number] [place] [address] 14 Jan, 2011 [facility] [address] [id number] [place] [address] 15 May, 2010 [facility] [id number] [place] [address] 04 Mar, 2010 [facility] [address] [id number] [place] [address] Oct, [facility] [id number] [place] [address] 14 Sep, 2009 [facility] [address] [id number] [place] [address] Mar, [facility] [address] [id number] [place] [address] Jan, [facility] [address] [id number] [place] [address] Jan, [facility] [address] [id number] [place] [address] May, IMMUNIZATIONS No Known Immunizations SOCIAL HISTORY Never Assessed REASON FOR VISIT PLAN OF CARE VITAL SIGNS Height 62 in 2013-08-26 Weight 180 lbs 2013-08-26 Temperature 97.8 degrees Fahrenheit 2013-08-26 Heart Rate 80 bpm 2013-08-26 Respiratory Rate 16 2013-08-26 Blood pressure systolic 138 mmHg 2013-08-26 Blood pressure diastolic 80 mmHg 2013-08-26 MEDICATIONS Unknown Medications RESULTS No Results PROCEDURES [...]
--- OUTSIDE RECORDS SUMMARY | 2019-11-23 06:29 | XMS REPORT | Continuity of Care Document ---
Demographics Preferred Language Unknown Marital Status Unknown Yarsanism Affiliation Unknown Race Unknown Ethnic Group Unknown Author Author [facility] Organization [employer] Address Unknown Phone Unavailable Allergies Active Description [...] 08/14/2012 Yes Flagyl 500 mg Tablet Drug Jac rgy N/A N/A 10/18/2013 Yes PEANUT Food Allergy N/A N/A 10/18/2013 Yes sulfamethoxazole [id number] Drug Allergy Mild N/A 05/22/2014 Yes trimethoprim [id number] Drug Allergy Mild N/A 05/22/2014 Yes amitriptyline 25 mg tablet Drug Allergy N/A N/A 06/05/2014 Yes No Known Allergies No Known Allergies Drug Allergy Unknown N/A 09/11/2014 Yes amitriptyline NKMA N/A N/A 02/24/2016 Yes Cipro NKMA N/A N/A 02/24/2016 Yes Macrobid NKMA N/A N/A 02/24/2016 Yes Peanuts egg-containing compoun d N/A N/A 02/24/2016 Yes peanut [id number] Drug Allergy Severe SOA, FACIAL SWE 05/21/2016 Yes Tree Nuts egg-containing compo und N/A N/A 01/13/2017 Medications Medication Packaging Start Date St op Date Route Dosage Sig meclizine(meclizine 25 mg oral tablet) 1 tabs 02/24/2016 Oral 25 mg 25 mg = 1 tabs, Oral, Daily, 0 Refill(s) HYDROcodone-acetaminophen(No rco 5 mg-325 mg oral tablet) 1 tabs 02/24/2016 Oral 1 tabs, Oral, q6hr, 0 Refill (s) amLODIPine(amLODIPine 5 mg oral tablet) 1 tabs 02/24/2016 Oral 5 mg 5 mg = 1 tabs, Oral, Daily, 0 Refill(s) pravastatin(pravastatin) 02/24/2016 Oral 20 mg 20 m g, Oral, Daily, 0 Refill(s) triamterene-hydroCHLOROthiaz porfirio(triamterene-hydrochlorothiazide 37.5 mg-25 mg oral tablet) 1 tabs 02/24/2016 Oral 1 tabs, Oral, Daily, 0 Refill(s) traMADol(traMADol 50 mg oral tablet) 1 tabs 02/24/2016 Oral 50 mg 50 mg = 1 tabs, Oral, Daily, 0 Refill(s) cyclobenzaprine(cyclobenzapr ine 10 mg oral tablet) 1 tabs 02/24/2016 Oral 1 0 mg 10 mg = 1 tabs, Oral, TID, P RN: as needed for spasm, 30 tabs, 0 Refill(s) triamcinolone(triamcinolone acetonide 40 mg/mL injectable suspension) 02/24/2016 016 IntraARTICULAR 80 mg 80 mg, IntraARTICULAR, Once bupivacaine(Marcaine HCl 0.5 % injectable solution) 4 mL 02/24/2016 02/24/2016 IntraA RTICULAR 4 mL, IntraARTIC ULAR, Once triamcinolone(triamcinolone acetonide 40 mg/mL injectable suspension) 02/24/2016 016 IntraARTICULAR 80 mg 80 mg, IntraARTICULAR, Once bupivacaine(Marcaine HCl 0.5 % injectable solution) 4 mL 02/24/2016 02/24/2016 IntraA RTICULAR 4 mL, IntraARTIC ULAR, Once EPINEPHrine(EpiPen 2-Андрей 0.3 mg injectable kit) 01/13/2017 IntraMuscular 0.3 mg 0.3 mg, IntraMuscular, Once, 0 Refill(s) Problems Date Dx Coded Attending Type Code Diagnosis Diagnosed By 03/09/1416 OTHER, UNLISTED Ot M75.82 OTHER SHOULDER LESIONS, LEFT SHOULDER 03/09/1527 WALESKA ESCOBAR, JULIAN Diaz Ot G89.2 9 03/09/1527 WALESKA ESCOBAR, JULIAN Diaz Ot M54.9 03/09/1544 CARROLL SIMA Briseno PHOTO LAB SPECIALIST Ot M54 .2 CERVICALGIA 03/09/1544 CARROLL SIMA Briseno PHOTO LAB SPECIALIST Ot M54 .5 LOW BACK PAIN 04/09/2008 NELSON DO ROSANNA K 401.1 ESSENTIAL HYPERTENSION BENIGN 04/09/2008 NELSON DO, ROSANNA K 401.1 ESSENTIAL HYPERTENSION BENIGN 04/09/2008 401.1 ESSE NTIAL HYPERTENSION BENIGN 04/09/2008 401.1 ESSE NTIAL HYPERTENSION BENIGN 04/09/2008 JORDON ESCOBAR, NASRA 401.1 ESSENTIAL HYPERTENSION BENIGN 04/09/2008 NELSON DO ROSANNA K 401.1 ESSENTIAL HYPERTENSION BENIGN 04/09/2008 NGOC COREAS MD, BARTOLOME A 401.1 ESSENTIAL HYPERTENSION BENIGN 04/09/2008 401.1 ESSE NTIAL HYPERTENSION BENIGN 04/09/2008 NELSON DO ROSANNA K 401.1 ESSENTIAL HYPERTENSION BENIGN 04/09/2008 401.1 ESSE NTIAL HYPERTENSION BENIGN 04/09/2008 401.1 ESSE NTIAL HYPERTENSION BENIGN 04/09/2008 401.1 ESSE NTIAL HYPERTENSION BENIGN 04/09/2008 401.1 ESSE NTIAL HYPERTENSION BENIGN 04/09/2008 401.1 ESSE NTIAL HYPERTENSION BENIGN 04/09/2008 401.1 ESSE NTIAL HYPERTENSION BENIGN 04/09/2008 WILY RAMIREZ MD 401.1 ESSENTIAL HYPERTENSION BENIGN 04/09/2008 AMIRAH WAGNER APRNIDI A 40 1.1 ESSENTIAL HYPERTENSION BENIGN 04/09/2008 LESLIE JOHNSTON ROSANNA K 401.1 ESSENTIAL HYPERTENSION BENIGN 04/09/2008 WILY RAMIREZ MD 401.1 ESSENTIAL HYPERTENSION BENIGN 04/09/2008 BERNARD CORRIGAN PACHECO A 40 1.1 ESSENTIAL HYPERTENSION BENIGN 04/09/2008 CLIFTON CORRIGAN RAFA R 401.1 ESSENTIAL HYPERTENSION BENIGN 04/09/2008 NELSON DO, ROSANNA K 401.1 ESSENTIAL HYPERTENSION BENIGN 04/09/2008 SIMA HODGES APRN 401 .1 ESSENTIAL HYPERTENSION BENIGN 04/09/2008 NELSON DO, ROSANNA K 401.1 ESSENTIAL HYPERTENSION BENIGN 04/09/2008 NELSON DO, ROSANNA K 401.1 ESSENTIAL HYPERTENSION BENIGN 04/09/2008 NELSON DO, ROSANNA K 401.1 ESSENTIAL HYPERTENSION BENIGN 04/09/2008 BERNARD CORRIGAN, PACHECO A 40 1.1 ESSENTIAL HYPERTENSION BENIGN 04/09/2008 NELSON DO, ROSANNA K 401.1 ESSENTIAL HYPERTENSION BENIGN 04/09/2008 WHITE DDS, AUSTIN D 40 1.1 ESSENTIAL HYPERTENSION BENIGN 04/09/2008 NELSON DO, ROSANNA K 401.1 ESSENTIAL HYPERTENSION BENIGN 04/09/2008 NELSON DO, ROSANNA K 401.1 ESSENTIAL HYPERTENSION BENIGN 04/09/2008 NELSON DO, ROSANNA K 401.1 ESSENTIAL HYPERTENSION BENIGN 04/09/2008 BERNARD CORRIGAN PACHECO A 40 1.1 ESSENTIAL HYPERTENSION BENIGN 04/09/2008 NELSON DO, ROSANNA K 401.1 ESSENTIAL HYPERTENSION BENIGN 04/09/2008 ONIEL HARRIS APRN 401.1 ESSENTIAL HYPERTENSION BENIGN 05/29/2008 NELSON DO, ROSANNA K 698.9 Itching (pruritus) 05/29/2008 NELSON DO, ROSANNA K 698.9 Itching (pruritus) 05/29/2008 698.9 Itch ing (pruritus) 05/29/2008 698.9 Itch ing (pruritus) 05/29/2008 NASRA RUVALCABA MD 698.9 Itching (pruritus) 05/29/2008 NELSON DO, ROSANNA K 698.9 Itching (pruritus) 05/29/2008 NGOC COREAS MD, BARTOLOME Willis 698.9 Itching (pruritus) 05/29/2008 698.9 Itch ing (pruritus) 05/29/2008 NELSON DO, ROSANNA K 698.9 Itching (pruritus) 05/29/2008 698.9 Itch ing (pruritus) 05/29/2008 698.9 Itch ing (pruritus) 05/29/2008 698.9 Itch ing (pruritus) 05/29/2008 698.9 Itch ing (pruritus) 05/29/2008 698.9 Itch ing (pruritus) 05/29/2008 698.9 Itch ing (pruritus) 05/29/2008 WILY RAMIREZ MD 698.9 Itching (pruritus) 05/29/2008 PACHECO WAGNER APRN A 69 8.9 Itching (pruritus) 05/29/2008 LESLIE JOHNSTON ROSANNA K 698.9 Itching (pruritus) 05/29/2008 WILY RAMIREZ MD 698.9 Itching (pruritus) 05/29/2008 BERNARD CORRIGAN PACHECO A 69 8.9 Itching (pruritus) 05/29/2008 RAFA LAZO APRN R 698.9 Itching (pruritus) 05/29/2008 NELSON DO, ROSANNA K 698.9 Itching (pruritus) 05/29/2008 CARROLL CORRIGAN SIMA L 698 .9 Itching (pruritus) 05/29/2008 NELSON DO, ROSANNA K 698.9 Itching (pruritus) 05/29/2008 NELSON DO, ROSANNA K 698.9 Itching (pruritus) 05/29/2008 NELSON DO, ROSANNA K 698.9 Itching (pruritus) 05/29/2008 AMIRAH WAGNER APRNIDI A 69 8.9 Itching (pruritus) 05/29/2008 NELSON DO, ROSANNA K 698.9 Itching (pruritus) 05/29/2008 WHITE DDS, AUSTIN Cisneros 69 8.9 Itching (pruritus) 05/29/2008 NELSON DO, ROSANNA K 698.9 Itching (pruritus) 05/29/2008 NELSON DO, ROSANNA K 698.9 Itching (pruritus) 05/29/2008 NELSON DO, ROSANNA K 698.9 Itching (pruritus) 05/29/2008 AMIRAH WAGNER APRNIDI A 69 8.9 Itching (pruritus) 05/29/2008 NELSON DO, ROSANNA K 698.9 Itching (pruritus) 05/29/2008 ONIEL HARRIS APRN R 698.9 Itching (pruritus) 05/30/2008 NELSON DO, ROSANNA K 272.0 HYPERCHOLESTEROLEMIA PURE 05/30/2008 NELSON DO, ROSANNA K 272.0 HYPERCHOLESTEROLEMIA PURE 05/30/2008 272.0 HYPERCHOLESTEROLEMIA PURE 05/30/2008 272.0 HYPERCHOLESTEROLEMIA PURE 05/30/2008 JORDON ESCOBAR, NASRA 272.0 HYPERLIPIDEMIA FAMILIAL HYPERCHOLESTEROLEMIA 05/30/2008 NELSON DO, ROSANNA K 272.0 HYPERLIPIDEMIA FAMILIAL HYPERCHOLESTEROLEMIA 05/30/2008 NGOC COREAS MD, BARTOLOME Willis 272.0 HYPERLIPIDEMIA FAMILIAL HYPERCHOLESTEROLEMIA 05/30/2008 272.0 HYPE RLIPIDEMIA FAMILIAL HYPERCHOLESTEROLEMIA 05/30/2008 NELSON DO, ROSANNA K 272.0 HYPERLIPIDEMIA FAMILIAL HYPERCHOLESTEROLEMIA 05/30/2008 272.0 HYPE RLIPIDEMIA FAMILIAL HYPERCHOLESTEROLEMIA 05/30/2008 272.0 HYPE RLIPIDEMIA FAMILIAL HYPERCHOLESTEROLEMIA 05/30/2008 272.0 HYPE RLIPIDEMIA FAMILIAL HYPERCHOLESTEROLEMIA 05/30/2008 272.0 HYPE RLIPIDEMIA FAMILIAL HYPERCHOLESTEROLEMIA 05/30/2008 272.0 HYPE RLIPIDEMIA FAMILIAL HYPERCHOLESTEROLEMIA 05/30/2008 272.0 HYPE RLIPIDEMIA FAMILIAL HYPERCHOLESTEROLEMIA 05/30/2008 WILY RAMIREZ MD 272.0 HYPERLIPIDEMIA FAMILIAL HYPERCHOLESTEROLEMIA 05/30/2008 BERNARDMIGUEL CORRIGAN PACHECO A 27 2.0 HYPERLIPIDEMIA FAMILIAL HYPERCHOLESTEROLEMIA 05/30/2008 NELSON DO, ROSANNA K 272.0 HYPERLIPIDEMIA FAMILIAL HYPERCHOLESTEROLEMIA 05/30/2008 WILY RAMIREZ MD 272.0 HYPERLIPIDEMIA FAMILIAL HYPERCHOLESTEROLEMIA 05/30/2008 BERNADRMIGUEL CORRIGAN PACHECO A 27 2.0 HYPERLIPIDEMIA FAMILIAL HYPERCHOLESTEROLEMIA 05/30/2008 RAFA LAZO APRN R 272.0 HYPERLIPIDEMIA FAMILIAL HYPERCHOLESTEROLEMIA 05/30/2008 NELSON DO, ROSANNA K 272.0 HYPERLIPIDEMIA FAMILIAL HYPERCHOLESTEROLEMIA 05/30/2008 SIMA HODGES APRN L 272 .0 HYPERLIPIDEMIA FAMILIAL HYPERCHOLESTEROLEMIA 05/30/2008 NELSON DO, ROSANNA K 272.0 HYPERLIPIDEMIA FAMILIAL HYPERCHOLESTEROLEMIA 05/30/2008 NELSON DO, ROSANNA K 272.0 HYPERLIPIDEMIA FAMILIAL HYPERCHOLESTEROLEMIA 05/30/2008 NELSON DO, ROSANNA K 272.0 HYPERLIPIDEMIA FAMILIAL HYPERCHOLESTEROLEMIA 05/30/2008 BERNARDMIGUEL CORRIGAN PACHECO A 27 2.0 HYPERLIPIDEMIA FAMILIAL HYPERCHOLESTEROLEMIA 05/30/2008 NELSON DO, ROSANNA K 272.0 HYPERLIPIDEMIA FAMILIAL HYPERCHOLESTEROLEMIA 05/30/2008 WHITE DDS, AUSTIN D 27 2.0 HYPERLIPIDEMIA FAMILIAL HYPERCHOLESTEROLEMIA 05/30/2008 NELSON DO, ROSANNA K 272.0 HYPERLIPIDEMIA FAMILIAL HYPERCHOLESTEROLEMIA 05/30/2008 NELSON DO, ROSANNA K 272.0 HYPERLIPIDEMIA FAMILIAL HYPERCHOLESTEROLEMIA 05/30/2008 NELSON DO, ROSANNA K 272.0 HYPERLIPIDEMIA FAMILIAL HYPERCHOLESTEROLEMIA 05/30/2008 BERNARD CORRIGAN, PACHECO A 27 2.0 HYPERLIPIDEMIA FAMILIAL HYPERCHOLESTEROLEMIA 05/30/2008 NELSON DO, ROSANNA K 272.0 HYPERLIPIDEMIA FAMILIAL HYPERCHOLESTEROLEMIA 05/30/2008 ONIEL HARRIS APRN R 272.0 HYPERLIPIDEMIA FAMILIAL HYPERCHOLESTEROLEMIA 07/01/2008 NELSON DO, ROSANNA K 401.9 ESSENTIAL HYPERTENSION 07/01/2008 NELSON DO, ROSANNA K 401.9 ESSENTIAL HYPERTENSION 07/01/2008 401.9 ESSE NTIAL HYPERTENSION 07/01/2008 401.9 ESSE NTIAL HYPERTENSION 07/01/2008 NASRA RUVALCABA MD 401.9 ESSENTIAL HYPERTENSION 07/01/2008 NELSON DO, ROSANNA K 401.9 ESSENTIAL HYPERTENSION 07/01/2008 NGOC COREAS MD, BARTOLOME A 401.9 ESSENTIAL HYPERTENSION 07/01/2008 401.9 ESSE NTIAL HYPERTENSION 07/01/2008 NELSON DO, ROSANNA K 401.9 ESSENTIAL HYPERTENSION 07/01/2008 401.9 ESSE NTIAL HYPERTENSION 07/01/2008 401.9 ESSE NTIAL HYPERTENSION 07/01/2008 401.9 ESSE NTIAL HYPERTENSION 07/01/2008 401.9 ESSE NTIAL HYPERTENSION 07/01/2008 401.9 ESSE NTIAL HYPERTENSION 07/01/2008 401.9 ESSE NTIAL HYPERTENSION 07/01/2008 JAMES ESCOBAR, WILY 401.9 ESSENTIAL HYPERTENSION 07/01/2008 PACHECO WAGNER APRN A 40 1.9 ESSENTIAL HYPERTENSION 07/01/2008 NELSON DO, ROSANNA K 401.9 ESSENTIAL HYPERTENSION 07/01/2008 WILY RAMIREZ MD 401.9 ESSENTIAL HYPERTENSION 07/01/2008 PACHECO WAGNER APRN A 40 1.9 ESSENTIAL HYPERTENSION 07/01/2008 RAFA LAZO APRN R 401.9 ESSENTIAL HYPERTENSION 07/01/2008 NELSON DO, ROSNANA K 401.9 ESSENTIAL HYPERTENSION 07/01/2008 SIMA HODGES APRN 401 .9 ESSENTIAL HYPERTENSION 07/01/2008 NELSON DO, ROSANNA K 401.9 ESSENTIAL HYPERTENSION 07/01/2008 NELSON DO, ROSANNA K 401.9 ESSENTIAL HYPERTENSION 07/01/2008 NELSON DO, ROSANNA K 401.9 ESSENTIAL HYPERTENSION 07/01/2008 AMIRAH WAGNER APRNIDI A 40 1.9 ESSENTIAL HYPERTENSION 07/01/2008 NELSON DO, ROSANNA K 401.9 ESSENTIAL HYPERTENSION 07/01/2008 AUSTIN ROBERT DDS 40 1.9 ESSENTIAL HYPERTENSION 07/01/2008 NELSON DO, ROSANNA K 401.9 ESSENTIAL HYPERTENSION 07/01/2008 NELSON DO, ROSANNA K 401.9 ESSENTIAL HYPERTENSION 07/01/2008 NELSON DO, ROSANNA K 401.9 ESSENTIAL HYPERTENSION 07/01/2008 BERNARD CORRIGAN PACHECO A 40 1.9 ESSENTIAL HYPERTENSION 07/01/2008 NELSON DO, ROSANNA K 401.9 ESSENTIAL HYPERTENSION 07/01/2008 ONIEL HARRIS APRN R 401.9 ESSENTIAL HYPERTENSION 02/03/2009 NELSON DO, ROSANNA K 719.44 COMPRESSION ARTHRALGIA - HAND 02/03/2009 NELSON ROSANNA JOHNSTON K 719.44 COMPRESSION ARTHRALGIA - HAND 02/03/2009 719.44 COM PRESSION ARTHRALGIA - HAND 02/03/2009 719.44 COM PRESSION ARTHRALGIA - HAND 02/03/2009 JORDON ESCOBAR, NASRA 719.4 4 COMPRESSION ARTHRALGIA - HAND 02/03/2009 ROSANNA NELSON DO K 719.44 COMPRESSION ARTHRALGIA - HAND 02/03/2009 NGOC COREAS MD, BARTOLOME A 719.44 COMPRESSION ARTHRALGIA - HAND 02/03/2009 719.44 COM PRESSION ARTHRALGIA - HAND 02/03/2009 NELSON ROSANNA JOHNSTON K 719.44 COMPRESSION ARTHRALGIA - HAND 02/03/2009 719.44 COM PRESSION ARTHRALGIA - HAND 02/03/2009 719.44 COM PRESSION ARTHRALGIA - HAND 02/03/2009 719.44 COM PRESSION ARTHRALGIA - HAND 02/03/2009 719.44 COM PRESSION ARTHRALGIA - HAND 02/03/2009 719.44 COM PRESSION ARTHRALGIA - HAND 02/03/2009 719.44 COM PRESSION ARTHRALGIA - HAND 02/03/2009 WILY RAMIREZ MD 719.44 COMPRESSION ARTHRALGIA - HAND 02/03/2009 PACHECO WAGNER APRN A 719.44 COMPRESSION ARTHRALGIA - HAND 02/03/2009 ROSANNA JOHNSTON K 719.44 COMPRESSION ARTHRALGIA - HAND 02/03/2009 WILY RAMIREZ MD 719.44 COMPRESSION ARTHRALGIA - HAND 02/03/2009 PACHECO WAGNER APRN A 719.44 COMPRESSION ARTHRALGIA - HAND 02/03/2009 RAFA LAZO APRN 719.44 COMPRESSION ARTHRALGIA - HAND 02/03/2009 ROSANNA NELSON DO K 719.44 COMPRESSION ARTHRALGIA - HAND 02/03/2009 SIMA HODGES APRN 719 .44 COMPRESSION ARTHRALGIA - HAND 02/03/2009 ROSANNA NELSON DO K 719.44 COMPRESSION ARTHRALGIA - HAND 02/03/2009 ROSANNA NELSON DO K 719.44 COMPRESSION ARTHRALGIA - HAND 02/03/2009 SAGE NELSON DOA K 719.44 COMPRESSION ARTHRALGIA - HAND 02/03/2009 AMIRAH WAGNER APRNIDI A 719.44 COMPRESSION ARTHRALGIA - HAND 02/03/2009 NELSON DO, ROSANNA K 719.44 COMPRESSION ARTHRALGIA - HAND 02/03/2009 JAKOB BAN AUSTIN Cisneros 719.44 COMPRESSION ARTHRALGIA - HAND 02/03/2009 NELSON DO ROSANNA K 719.44 COMPRESSION ARTHRALGIA - HAND 02/03/2009 NELSON DO, ROSANNA K 719.44 COMPRESSION ARTHRALGIA - HAND 02/03/2009 NELSON DO, ROSANNA K 719.44 COMPRESSION ARTHRALGIA - HAND 02/03/2009 AMIRAH WAGNER APRNIDI A 719.44 COMPRESSION ARTHRALGIA - HAND 02/03/2009 NELSON DO, ROSANNA K 719.44 COMPRESSION ARTHRALGIA - HAND 02/03/2009 ONIEL HARRIS APRN 719.44 COMPRESSION ARTHRALGIA - HAND 03/18/2009 ROSANNA NELSON DO K 382.00 Otitis Media Acute Without Spontaneous Rupture Eardrum 03/18/2009 SAGE NELSON DOA K 382.00 Otitis Media Acute Without Spontaneous Rupture Eardrum 03/18/2009 382.00 Erin tis Media Acute Without Spontaneous Rupture Eardrum 03/18/2009 382.00 Erin tis Media Acute Without Spontaneous Rupture Eardrum 03/18/2009 JORDON ESCOBAR, NASRA 382.0 0 Otitis Media Acute Without Spontaneous Rupture Eardrum 03/18/2009 ROSANNA NELSON DO K 382.00 Otitis Media Acute Without Spontaneous Rupture Eardrum 03/18/2009 NGOC COREAS MD, BARTOLOME A 382.00 Otitis Media Acute Without Spontaneous Rupture Eardrum 03/18/2009 382.00 Erin tis Media Acute Without Spontaneous Rupture Eardrum 03/18/2009 ROSANNA NELSON DO K 382.00 Otitis Media Acute Without Spontaneous Rupture Eardrum 03/18/2009 382.00 Erin tis Media Acute Without Spontaneous Rupture Eardrum 03/18/2009 382.00 Erin tis Media Acute Without Spontaneous Rupture Eardrum 03/18/2009 382.00 Erin tis Media Acute Without Spontaneous Rupture Eardrum 03/18/2009 382.00 Erin tis Media Acute Without Spontaneous Rupture Eardrum 03/18/2009 382.00 Erin tis Media Acute Without Spontaneous Rupture Eardrum 03/18/2009 382.00 Erin tis Media Acute Without Spontaneous Rupture Eardrum 03/18/2009 WILY RAMIREZ MD 382.00 Otitis Media Acute Without Spontaneous Rupture Eardrum 03/18/2009 BERNARD PSYCHIATRIC RN, PACHECO A 382.00 Otitis Media Acute Without Spontaneous Rupture Eardrum 03/18/2009 NELSON DO, ROSANNA K 382.00 Otitis Media Acute Without Spontaneous Rupture Eardrum 03/18/2009 WILY RAMIREZ MD 382.00 Otitis Media Acute Without Spontaneous Rupture Eardrum 03/18/2009 BERNARD PSYCHIATRIC RN, PACHECO A 382.00 Otitis Media Acute Without Spontaneous Rupture Eardrum 03/18/2009 RAFA LAZO APRN R 382.00 Otitis Media Acute Without Spontaneous Rupture Eardrum 03/18/2009 NELSON DO, ROSANNA K 382.00 Otitis Media Acute Without Spontaneous Rupture Eardrum 03/18/2009 CARROLL PSYCHIATRIC RN, SIMA L 382 .00 Otitis Media Acute Without Spontaneous Rupture Eardrum 03/18/2009 NELSON DO, ROSANNA K 382.00 Otitis Media Acute Without Spontaneous Rupture Eardrum 03/18/2009 NELSON DO, ROSANNA K 382.00 Otitis Media Acute Without Spontaneous Rupture Eardrum 03/18/2009 NELSON DO, ROSANNA K 382.00 Otitis Media Acute Without Spontaneous Rupture Eardrum 03/18/2009 BERNARD PSYCHIATRIC RN, PACHECO A 382.00 Otitis Media Acute Without Spontaneous Rupture Eardrum 03/18/2009 NELSON DO, ROSANNA K 382.00 Otitis Media Acute Without Spontaneous Rupture Eardrum 03/18/2009 JAKOB DDS, AUSTIN Cisneros 382.00 Otitis Media Acute Without Spontaneous Rupture Eardrum 03/18/2009 NELSON DO, ROSANNA K 382.00 Otitis Media Acute Without Spontaneous Rupture Eardrum 03/18/2009 NELSON DO, ROSANNA K 382.00 Otitis Media Acute Without Spontaneous Rupture Eardrum 03/18/2009 NELSON DO, ROSANNA K 382.00 Otitis Media Acute Without Spontaneous Rupture Eardrum 03/18/2009 BERNARD PSYCHIATRIC RN, PACHECO A 382.00 Otitis Media Acute Without Spontaneous Rupture Eardrum 03/18/2009 NELSON DO, ROSANNA K 382.00 Otitis Media Acute Without Spontaneous Rupture Eardrum 03/18/2009 ONIEL HARRIS APRN 382.00 Otitis Media Acute Without Spontaneous Rupture Eardrum 08/03/2009 NELSON DO, ROSANNA K 995.3 Certain Adverse Effects Not Elsewhere Classified, Allergy, Unspecified 08/03/2009 NELSON DO, ROSANNA K 995.3 Certain Adverse Effects Not Elsewhere Classified, Allergy, Unspecified 08/03/2009 995.3 Cert ain Adverse Effects Not Elsewhere Classified, Allergy, Unspecified 08/03/2009 995.3 Cert ain Adverse Effects Not Elsewhere Classified, Allergy, Unspecified 08/03/2009 NASRA RUVALCABA MD 995.3 Certain Adverse Effects Not Elsewhere Classified, Allergy, Unspecified 08/03/2009 NELSON DO, ROSANNA K 995.3 Certain Adverse Effects Not Elsewhere Classified, Allergy, Unspecified 08/03/2009 NGOC COREAS MD, BARTOLOME A 995.3 Certain Adverse Effects Not Elsewhere Cl assified, Allergy, Unspecified 08/03/2009 995.3 Cert ain Adverse Effects Not Elsewhere Classified, Allergy, Unspecified 08/03/2009 NELSON DO, ROSANNA K 995.3 Certain Adverse Effects Not Elsewhere Classified, Allergy, Unspecified 08/03/2009 995.3 Cert ain Adverse Effects Not Elsewhere Classified, Allergy, Unspecified 08/03/2009 995.3 Cert ain Adverse Effects Not Elsewhere Classified, Allergy, Unspecified 08/03/2009 995.3 Cert ain Adverse Effects Not Elsewhere Classified, Allergy, Unspecified 08/03/2009 995.3 Cert ain Adverse Effects Not Elsewhere Classified, Allergy, Unspecified 08/03/2009 995.3 Cert ain Adverse Effects Not Elsewhere Classified, Allergy, Unspecified 08/03/2009 995.3 Cert ain Adverse Effects Not Elsewhere Classified, Allergy, Unspecified 08/03/2009 WILY RAMIREZ MD 995.3 Certain Adverse Effects Not Elsewhere Classified, Allergy, Unspecified 08/03/2009 BERNARD APRN, PACHECO A 99 5.3 Certain Adverse Effects Not Elsewhere Classified, Allergy, Unspecified 08/03/2009 NELSON DO, ROSANNA K 995.3 Certain Adverse Effects Not Elsewhere Classified, Allergy, Unspecified 08/03/2009 WILY RAMIREZ MD 995.3 Certain Adverse Effects Not Elsewhere Classified, Allergy, Unspecified 08/03/2009 BERNARD PSYCHIATRIC RN, PACHECO A 99 5.3 Certain Adverse Effects Not Elsewhere Classified, Allergy, Unspecified 08/03/2009 CLIFTON CORRIGANRAFA R 995.3 Certain Adverse Effects Not Elsewhere Cl assified, Allergy, Unspecified 08/03/2009 NELSON DO, ROSANNA K 995.3 Certain Adverse Effects Not Elsewhere Classified, Allergy, Unspecified 08/03/2009 CARROLL PSYCHIATRIC RN, SIMA L 995 .3 Certain Adverse Effects Not Elsewhere Classified, Allergy, Unspecified 08/03/2009 NELSON DO, ROSANNA K 995.3 Certain Adverse Effects Not Elsewhere Classified, Allergy, Unspecified 08/03/2009 NELSON DO, ROSANNA K 995.3 Certain Adverse Effects Not Elsewhere Classified, Allergy, Unspecified 08/03/2009 NELSON DO, ROSANNA K 995.3 Certain Adverse Effects Not Elsewhere Classified, Allergy, Unspecified 08/03/2009 BERNARD PSYCHIATRIC RN, PACHECO A 99 5.3 Certain Adverse Effects Not Elsewhere Classified, Allergy, Unspecified 08/03/2009 NELSON DO, ROSANNA K 995.3 Certain Adverse Effects Not Elsewhere Classified, Allergy, Unspecified 08/03/2009 JAKOB PARDOS, AUSTIN Cisneros 99 5.3 Certain Adverse Effects Not Elsewhere Classified, Allergy, Unspecified 08/03/2009 NELSON DO, ROSANNA K 995.3 Certain Adverse Effects Not Elsewhere Classified, Allergy, Unspecified 08/03/2009 NELSON DO, ROSANNA K 995.3 Certain Adverse Effects Not Elsewhere Classified, Allergy, Unspecified 08/03/2009 NELSON DO, ROSANNA K 995.3 Certain Adverse Effects Not Elsewhere Classified, Allergy, Unspecified 08/03/2009 BERNARD ANDREWSN, PACHECO A 99 5.3 Certain Adverse Effects Not Elsewhere Classified, Allergy, Unspecified 08/03/2009 NELSON DO, ROSANNA K 995.3 Certain Adverse Effects Not Elsewhere Classified, Allergy, Unspecified 08/03/2009 KIMBERLY PSYCHIATRIC RNONIEL R 995.3 Certain Adverse Effects Not Elsewhere Cl assified, Allergy, Unspecified 09/21/2009 NELSON DO, ROSANNA K 388.70 Otalgia, Unspecified 09/21/2009 NELSON DO, ROSANNA K 599.0 Urinary Tract Infection, Site Not Specified 09/21/2009 NELSON DO, ROSANNA K 724.3 Sciatica 09/21/2009 NELSON DO, ROSANAN K 388.70 Otalgia, Unspecified 09/21/2009 NELSON DO, ROSANNA K 599.0 Urinary Tract Infection, Site Not Specified 09/21/2009 NELSON DO, ROSANNA K 724.3 Sciatica 09/21/2009 388.70 Helix Coil Winder lgia, Unspecified 09/21/2009 599.0 Urin pete Tract Infection, Site Not Specified 09/21/2009 724.3 Sciatica 09/21/2009 388.70 Hua lgia, Unspecified 09/21/2009 599.0 Urin pete Tract Infection, Site Not Specified 09/21/2009 724.3 Sciatica 09/21/2009 JORDON ESCOBAR, NASRA 388.7 0 Otalgia, Unspecified 09/21/2009 JORDON ESCOBAR, NASRA 599.0 Urinary Tract Infection, Site Not Specified 09/21/2009 JORDON ESCOBAR, NASRA 724.3 Sciatica 09/21/2009 NELSON DO, ROSANNA K 388.70 Otalgia, Unspecified 09/21/2009 NELSON DO, ROSANNA K 599.0 Urinary Tract Infection, Site Not Specified 09/21/2009 NELSON DO, ROSANNA K 724.3 Sciatica 09/21/2009 NGOC COREAS MD, BARTOLOME Willis 388.70 Otalgia, Unspecified 09/21/2009 NGOC COREAS MD, BARTOLOME A 599.0 Urinary Tract Infection, Site Not Specified 09/21/2009 NGOC COREAS MD, BARTOLOME A 724.3 Sciatica 09/21/2009 388.70 Hua lgia, Unspecified 09/21/2009 599.0 Urin pete Tract Infection, Site Not Specified 09/21/2009 724.3 Sciatica 09/21/2009 NELSON DO, ROSANNA K 388.70 Otalgia, Unspecified 09/21/2009 NELSON DO, ROSANNA K 599.0 Urinary Tract Infection, Site Not Specified 09/21/2009 NELSON DO, ROSANNA K 724.3 Sciatica 09/21/2009 388.70 Hua lgia, Unspecified 09/21/2009 599.0 Urin pete Tract Infection, Site Not Specified 09/21/2009 724.3 Sciatica 09/21/2009 388.70 Helix Coil Winder lgia, Unspecified 09/21/2009 599.0 Urin pete Tract Infection, Site Not Specified 09/21/2009 724.3 Sciatica 09/21/2009 388.70 Hua lgia, Unspecified 09/21/2009 599.0 Urin pete Tract Infection, Site Not Specified 09/21/2009 724.3 Sciatica 09/21/2009 388.70 Helix Coil Winder lgia, Unspecified 09/21/2009 599.0 Urin epte Tract Infection, Site Not Specified 09/21/2009 724.3 Sciatica 09/21/2009 388.70 Hua lgia, Unspecified 09/21/2009 599.0 Urin pete Tract Infection, Site Not Specified 09/21/2009 724.3 Sciatica 09/21/2009 388.70 Hua lgia, Unspecified 09/21/2009 599.0 Urin pete Tract Infection, Site Not Specified 09/21/2009 724.3 Sciatica 09/21/2009 JAMES ESCOBAR, WILY 388.70 Otalgia, Unspecified 09/21/2009 JAMES ESCOBAR, WILY 599.0 Urinary Tract Infection, Site Not Specified 09/21/2009 JAMES ESCOBAR, WILY 724.3 Sciatica 09/21/2009 PACHECO WAGNER APRN A 388.70 Otalgia, Unspecified 09/21/2009 PACHECO WAGNER APRN A 59 9.0 Urinary Tract Infection, Site Not Specified 09/21/2009 PACHECO WAGNER APRN A 72 4.3 Sciatica 09/21/2009 NELSON DO, ROSANNA K 388.70 Otalgia, Unspecified 09/21/2009 NELSON DO, ROSANNA K 599.0 Urinary Tract Infection, Site Not Specified 09/21/2009 NELSON DO, ROSANNA K 724.3 Sciatica 09/21/2009 JAMES ESCOBAR, WILY 388.70 Otalgia, Unspecified 09/21/2009 JAMES ESCOBAR, WILY 599.0 Urinary Tract Infection, Site Not Specified 09/21/2009 JAMES ESCOBAR, WILY 724.3 Sciatica 09/21/2009 PACHECO WAGNER APRN A 388.70 Otalgia, Unspecified 09/21/2009 AMIRAH WAGNER APRNIDI A 59 9.0 Urinary Tract Infection, Site Not Specified 09/21/2009 AMIRAH WAGNER APRNIDI A 72 4.3 Sciatica 09/21/2009 RAFA LAZO APRN 388.70 Otalgia, Unspecified 09/21/2009 CLIFTON PSYCHIATRIC RN, RAFA R 599.0 Urinary Tract Infection, Site Not Specified 09/21/2009 CLIFTON PSYCHIATRIC RN, RAFA R 724.3 Sciatica 09/21/2009 NELSON DO, ROSANNA K 388.70 Otalgia, Unspecified 09/21/2009 NELSON DO, ROSANNA K 599.0 Urinary Tract Infection, Site Not Specified 09/21/2009 NELSON DO, ROSANNA K 724.3 Sciatica 09/21/2009 MADL PSYCHIATRIC RN, SIMA L 388 .70 Otalgia, Unspecified 09/21/2009 MADL PSYCHIATRIC RN, SIMA L 599 .0 Urinary Tract Infection, Site Not Specified 09/21/2009 MADL PSYCHIATRIC RN, SIMA L 724 .3 Sciatica 09/21/2009 NELSON DO, ROSANNA K 388.70 [...] DO, ROSANNA K 724.3 Sciatica 09/21/2009 BERNARD PSYCHIATRIC RN, PACHECO A 388.70 Otalgia, Unspecified 09/21/2009 BERNARD PSYCHIATRIC RN, PACHECO A 59 9.0 Urinary Tract Infection, Site Not Specified 09/21/2009 BERNARD PSYCHIATRIC RN, PACHECO A 72 4.3 Sciatica 09/21/2009 NELSON DO, ROSANNA K 388.70 Otalgia, Unspecified 09/21/2009 NELSON DO, ROSANNA K 599.0 Urinary Tract Infection, Site Not Specified 09/21/2009 NELSON DO, ROSANNA K 724.3 Sciatica 09/21/2009 WHITE DDS, AUSTIN D 388.70 Otalgia, Unspecified 09/21/2009 WHITE DDS, AUSTIN D 59 9.0 Urinary Tract Infection, Site Not Specified 09/21/2009 WHITE DDS, AUSTIN D 72 4.3 Sciatica 09/21/2009 NELSON DO, ROSANNA K 388.70 [...] DO, ROSANNA K 724.3 Sciatica 09/21/2009 BERNARD PSYCHIATRIC RN, PACHECO A 388.70 Otalgia, Unspecified 09/21/2009 BERNARD PSYCHIATRIC RN, PACHECO A 59 9.0 Urinary Tract Infection, Site Not Specified 09/21/2009 BERNARD PSYCHIATRIC RN, PACHECO A 72 4.3 Sciatica 09/21/2009 NELSON DO, ROSANNA K 388.70 Otalgia, Unspecified 09/21/2009 NELSON DO, ROSANNA K 599.0 Urinary Tract Infection, Site Not Specified 09/21/2009 NELSON DO, ROSANNA K 724.3 Sciatica 09/21/2009 KIMBERLEY HARRIS APRNRICIA R 388.70 Otalgia, Unspecified 09/21/2009 KIMBERLEY HARRIS APRNRICIA R 599.0 Urinary Tract Infection, Site Not Specified 09/21/2009 KIMBERLY PSYCHIATRIC RN, ONIEL R 724.3 Sciatica 10/26/2009 NELSON DO, ROSANNA K 796.2 ELEVATED BLOOD PRESSURE READING WITHOUT DIAGNOSIS OF HYPERTENSION 10/26/2009 NELSON DO, ROSANNA K 796.2 ELEVATED BLOOD PRESSURE READING WITHOUT DIAGNOSIS OF HYPERTENSION 10/26/2009 796.2 ELEV ATED BLOOD PRESSURE READING WITHOUT DIAGNOSIS OF HYPERTENSION 10/26/2009 796.2 ELEV ATED BLOOD PRESSURE READING WITHOUT DIAGNOSIS OF HYPERTENSION 10/26/2009 NASRA RUVALCABA MD 796.2 ELEVATED BLOOD PRESSURE READING WITHOUT DIAGNOSIS OF HYPERTENSION 10/26/2009 NELSON DO, ROSANNA K 796.2 ELEVATED BLOOD PRESSURE READING WITHOUT DIAGNOSIS OF HYPERTENSION 10/26/2009 NGOC COREAS MD, BARTOLOME A 796.2 ELEVATED BLOOD PRESSURE READING WITHOUT DIAGNOSIS OF H YPERTENSION 10/26/2009 796.2 ELEV ATED BLOOD PRESSURE READING WITHOUT DIAGNOSIS OF HYPERTENSION 10/26/2009 NELSON DO, ROSANNA K 796.2 ELEVATED BLOOD PRESSURE READING WITHOUT DIAGNOSIS OF HYPERTENSION 10/26/2009 796.2 ELEV ATED BLOOD PRESSURE READING WITHOUT DIAGNOSIS OF HYPERTENSION 10/26/2009 796.2 ELEV ATED BLOOD PRESSURE READING WITHOUT DIAGNOSIS OF HYPERTENSION 10/26/2009 796.2 ELEV ATED BLOOD PRESSURE READING WITHOUT DIAGNOSIS OF HYPERTENSION 10/26/2009 796.2 ELEV ATED BLOOD PRESSURE READING WITHOUT DIAGNOSIS OF HYPERTENSION 10/26/2009 796.2 ELEV ATED BLOOD PRESSURE READING WITHOUT DIAGNOSIS OF HYPERTENSION 10/26/2009 796.2 ELEV ATED BLOOD PRESSURE READING WITHOUT DIAGNOSIS OF HYPERTENSION 10/26/2009 WILY RAMIREZ MD 796.2 ELEVATED BLOOD PRESSURE READING WITHOUT DIAGNOSIS OF HYPERTENSION 10/26/2009 PACHECO WAGNER APRN A 79 6.2 ELEVATED BLOOD PRESSURE READING WITHOUT DIAGNOSIS OF HYPERTENSION 10/26/2009 LESLIE JOHNSTON ROSANNA K 796.2 ELEVATED BLOOD PRESSURE READING WITHOUT DIAGNOSIS OF HYPERTENSION 10/26/2009 WILY RAMIREZ MD 796.2 ELEVATED BLOOD PRESSURE READING WITHOUT DIAGNOSIS OF HYPERTENSION 10/26/2009 PACHECO WAGNER APRN A 79 6.2 ELEVATED BLOOD PRESSURE READING WITHOUT DIAGNOSIS OF HYPERTENSION 10/26/2009 RAFA LAZO APRN R 796.2 ELEVATED BLOOD PRESSURE READING WITHOUT DIAGNOSIS OF H YPERTENSION 10/26/2009 NELSON DO, ROSANNA K 796.2 ELEVATED BLOOD PRESSURE READING WITHOUT DIAGNOSIS OF HYPERTENSION 10/26/2009 SIMA HODGES APRN L 796 .2 ELEVATED BLOOD PRESSURE READING WITHOUT DIAGNOSIS OF HYPERTENSION 10/26/2009 NELSON DO, ROSANNA K 796.2 ELEVATED BLOOD PRESSURE READING WITHOUT DIAGNOSIS OF HYPERTENSION 10/26/2009 NELSON DO, ROSANNA K 796.2 ELEVATED BLOOD PRESSURE READING WITHOUT DIAGNOSIS OF HYPERTENSION 10/26/2009 NELSON DO, ROSANNA K 796.2 ELEVATED BLOOD PRESSURE READING WITHOUT DIAGNOSIS OF HYPERTENSION 10/26/2009 AMIRAH WAGNER APRNIDI A 79 6.2 ELEVATED BLOOD PRESSURE READING WITHOUT DIAGNOSIS OF HYPERTENSION 10/26/2009 ROSANNA NELSON DO K 796.2 ELEVATED BLOOD PRESSURE READING WITHOUT DIAGNOSIS OF HYPERTENSION 10/26/2009 WHITE DDS, AUSTIN D 79 6.2 ELEVATED BLOOD PRESSURE READING WITHOUT DIAGNOSIS OF HYPERTENSION 10/26/2009 ROSANNA NELSON DO K 796.2 ELEVATED BLOOD PRESSURE READING WITHOUT DIAGNOSIS OF HYPERTENSION 10/26/2009 SAGE NELSON DOA K 796.2 ELEVATED BLOOD PRESSURE READING WITHOUT DIAGNOSIS OF HYPERTENSION 10/26/2009 SAGE NELSON DOA K 796.2 ELEVATED BLOOD PRESSURE READING WITHOUT DIAGNOSIS OF HYPERTENSION 10/26/2009 PACHECO WAGNER APRN A 79 6.2 ELEVATED BLOOD PRESSURE READING WITHOUT DIAGNOSIS OF HYPERTENSION 10/26/2009 SAGE NELSON DOA K 796.2 ELEVATED BLOOD PRESSURE READING WITHOUT DIAGNOSIS OF HYPERTENSION 10/26/2009 ONIEL HARRIS APRN 796.2 ELEVATED BLOOD PRESSURE READING WITHOUT DIAGNOSIS OF H YPERTENSION 10/28/2009 ROSANNA NELSON DO K V76.10 BREAST SCREENING, UNSPECIFIED 10/28/2009 LESLIE DO ROSANNA K V76.10 BREAST SCREENING, UNSPECIFIED 10/28/2009 V76.10 TIANNA AST SCREENING, UNSPECIFIED 10/28/2009 V76.10 TIANNA AST SCREENING, UNSPECIFIED 10/28/2009 JORDON ESCOBAR, NASRA V76.1 0 BREAST SCREENING, UNSPECIFIED 10/28/2009 LESLIE ROSANNA JOHNSTON K V76.10 BREAST SCREENING, UNSPECIFIED 10/28/2009 NGOC COREAS MD, BARTOLOME Willis V76.10 BREAST SCREENING, UNSPECIFIED 10/28/2009 V76.10 TIANNA AST SCREENING, UNSPECIFIED 10/28/2009 NELSON ROSANNA JOHNSTON K V76.10 BREAST SCREENING, UNSPECIFIED 10/28/2009 V76.10 TIANNA AST SCREENING, UNSPECIFIED 10/28/2009 V76.10 TIANNA AST SCREENING, UNSPECIFIED 10/28/2009 V76.10 TIANNA AST SCREENING, UNSPECIFIED 10/28/2009 V76.10 TIANNA AST SCREENING, UNSPECIFIED 10/28/2009 V76.10 TIANNA AST SCREENING, UNSPECIFIED 10/28/2009 V76.10 TIANNA AST SCREENING, UNSPECIFIED 10/28/2009 WILY RAMIREZ MD V76.10 BREAST SCREENING, UNSPECIFIED 10/28/2009 PACHECO WAGNER APRN A V76.10 BREAST SCREENING, UNSPECIFIED 10/28/2009 NELSON DO, ROSANNA K V76.10 BREAST SCREENING, UNSPECIFIED 10/28/2009 WILY RAMIREZ MD V76.10 BREAST SCREENING, UNSPECIFIED 10/28/2009 BERNARD CORRIGAN, PACHECO A V76.10 BREAST SCREENING, UNSPECIFIED 10/28/2009 RAFA LAZO APRN V76.10 BREAST SCREENING, UNSPECIFIED 10/28/2009 NELSON DO, ROSANNA K V76.10 BREAST SCREENING, UNSPECIFIED 10/28/2009 SIMA HODGES APRN V76 .10 BREAST SCREENING, UNSPECIFIED 10/28/2009 NELSON DO, ROSANNA K V76.10 BREAST SCREENING, UNSPECIFIED 10/28/2009 NELSON DO, ROSANNA K V76.10 BREAST SCREENING, UNSPECIFIED 10/28/2009 NELSON DO, ROSANNA K V76.10 BREAST SCREENING, UNSPECIFIED 10/28/2009 BERNARD CORRIGAN, PACHECO A V76.10 BREAST SCREENING, UNSPECIFIED 10/28/2009 NELSON DO, ROSANNA K V76.10 BREAST SCREENING, UNSPECIFIED 10/28/2009 AUSTIN ROBERT DDS V76.10 BREAST SCREENING, UNSPECIFIED 10/28/2009 NELSON DO, [...] K 787.01 Nausea With Vomiting 12/16/2009 461.9 Sinu sitis Acute 12/16/2009 786.2 Cough 12/16/2009 787.01 [place] With Vomiting 12/16/2009 461.9 Sinu sitis Acute 12/16/2009 786.2 Cough 12/16/2009 787.01 [place] With Vomiting 12/16/2009 NASRA RUVALCABA MD 461.9 Sinusitis Acute 12/16/2009 NASRA RUVALCABA MD 786.2 Cough 12/16/2009 NASRA RUVALCABA MD 787.0 1 Nausea With Vomiting 12/16/2009 LESLIE JOHNSTON ROSANNA K 461.9 Sinusitis Acute 12/16/2009 LESLIE DO ROSANNA K 786.2 Cough 12/16/2009 NELSON , ROSANNA K 787.01 Nausea With Vomiting 12/16/2009 NGOC COREAS MD, BARTOLOME Willis 461.9 Sinusitis Acute 12/16/2009 NGOC COREAS MD, BARTOLOME Willis 786.2 Cough 12/16/2009 NGOC COREAS MD, BARTOLOME A 787.01 Nausea With Vomiting 12/16/2009 461.9 Sinu sitis Acute 12/16/2009 786.2 Cough 12/16/2009 787.01 [place] With Vomiting 12/16/2009 LESLIE JOHNSTON ROSANNA K 461.9 Sinusitis Acute 12/16/2009 NELSON DO ROSANNA K 786.2 Cough 12/16/2009 LESLIE JOHNSTON ROSANNA K 787.01 Nausea With Vomiting 12/16/2009 461.9 Sinu sitis Acute 12/16/2009 786.2 Cough 12/16/2009 787.01 [place] With Vomiting 12/16/2009 461.9 Sinu sitis Acute 12/16/2009 786.2 Cough 12/16/2009 787.01 [place] With Vomiting 12/16/2009 461.9 Sinu sitis Acute 12/16/2009 786.2 Cough 12/16/2009 787.01 [place] With Vomiting 12/16/2009 461.9 Sinu sitis Acute 12/16/2009 786.2 Cough 12/16/2009 787.01 [place] With Vomiting 12/16/2009 461.9 Sinu sitis Acute 12/16/2009 786.2 Cough 12/16/2009 787.01 [place] With Vomiting 12/16/2009 461.9 Sinu sitis Acute 12/16/2009 786.2 Cough 12/16/2009 787.01 [place] With Vomiting 12/16/2009 JAMES ESCOBAR, WILY 461.9 Sinusitis Acute 12/16/2009 JAMES ESCOBAR, WILY 786.2 Cough 12/16/2009 JAMES ESCOBAR, WILY 787.01 Nausea With Vomiting 12/16/2009 BERNARD PSYCHIATRIC RN, PACHECO A 46 1.9 Sinusitis Acute 12/16/2009 BERNARD PSYCHIATRIC RN, PACHECO A 78 6.2 Cough 12/16/2009 BERNARD PSYCHIATRIC RN, PACHECO A 787.01 Nausea With Vomiting 12/16/2009 NELSON DO, ROSANNA K 461.9 Sinusitis Acute 12/16/2009 NELSON DO, ROSANNA K 786.2 Cough 12/16/2009 NELSON DO, ROSANNA K 787.01 Nausea With Vomiting 12/16/2009 WILY RAMIREZ MD 461.9 Sinusitis Acute 12/16/2009 JAMES ESCOBAR, WILY 786.2 Cough 12/16/2009 JAMES ESCOBAR, WILY 787.01 Nausea With Vomiting 12/16/2009 BERNARD PSYCHIATRIC RN, PACHECO A 46 1.9 Sinusitis Acute 12/16/2009 BERNARD PSYCHIATRIC RN, PACHECO A 78 6.2 Cough 12/16/2009 BERNARD PSYCHIATRIC RN, PACHECO A 787.01 Nausea With Vomiting 12/16/2009 CLIFTON PSYCHIATRIC RN, RAFA R 461.9 Sinusitis Acute 12/16/2009 CLIFTON PSYCHIATRIC RN, RAFA R 786.2 Cough 12/16/2009 CLIFTON PSYCHIATRIC RN, RAFA R 787.01 Nausea With Vomiting 12/16/2009 NELSON DO, ROSANNA K 461.9 Sinusitis Acute 12/16/2009 NELSON DO, ROSANNA K 786.2 Cough 12/16/2009 NELSON DO, ROSANNA K 787.01 Nausea With Vomiting 12/16/2009 MADL PSYCHIATRIC RN, SIMA L 461 .9 Sinusitis Acute 12/16/2009 MADL PSYCHIATRIC RN, SIMA L 786 .2 Cough 12/16/2009 MADL PSYCHIATRIC RN, SIMA L 787 .01 Nausea With Vomiting 12/16/2009 NELSON DO, ROSANNA K 461.9 Sinusitis Acute 12/16/2009 NELSON DO, ROSANNA K 786.2 Cough 12/16/2009 NLESON DO, ROSANNA K 787.01 Nausea With Vomiting 12/16/2009 NELSON DO, ROSANNA K 461.9 Sinusitis Acute 12/16/2009 NELSON DO, ROSANNA K 786.2 Cough 12/16/2009 NELSON DO, ROSANNA K 787.01 Nausea With Vomiting 12/16/2009 NELSON DO, ROSANNA K 461.9 Sinusitis Acute 12/16/2009 NELSON DO, ROSANNA K 786.2 Cough 12/16/2009 NELSON DO, ROSANNA K 787.01 Nausea With Vomiting 12/16/2009 BERNARD PSYCHIATRIC RN, PACHECO A 46 1.9 Sinusitis Acute 12/16/2009 BERNARD PSYCHIATRIC RN, PACHECO A 78 6.2 Cough 12/16/2009 BERNARD PSYCHIATRIC RN, PACHECO A 787.01 Nausea With Vomiting 12/16/2009 NELSON DO, ROSANNA K 461.9 Sinusitis Acute 12/16/2009 NELSON DO, ROSANNA K 786.2 Cough 12/16/2009 NELSON DO, ROSANNA K 787.01 Nausea With Vomiting 12/16/2009 WHITE DDS, AUSTIN D 46 1.9 Sinusitis Acute 12/16/2009 WHITE DDS, AUSTIN D 78 6.2 Cough 12/16/2009 WHITE DDS, AUSTIN D 787.01 [...] K 787.01 Nausea With Vomiting 12/16/2009 BERNARD PSYCHIATRIC RN, PACHECO A 46 1.9 Sinusitis Acute 12/16/2009 BERNARD PSYCHIATRIC RN, PACHECO A 78 6.2 Cough 12/16/2009 BERNARD PSYCHIATRIC RN, PACHECO A 787.01 Nausea With Vomiting 12/16/2009 NELSON DO, ROSANNA K 461.9 Sinusitis Acute 12/16/2009 NELSON DO, ROSANNA K 786.2 Cough 12/16/2009 NELSON DO, ROSANNA K 787.01 Nausea With Vomiting 12/16/2009 CYNTHIA HARRIS APRNIA R 461.9 Sinusitis Acute 12/16/2009 CYNTHIA HARRIS APRNIA R 786.2 Cough 12/16/2009 KIMBERLY ANDREWSNCYNTHIAIA R 787.01 Nausea With Vomiting 12/21/2009 Ot 386.30 12/21/2009 Ot 780.4 12/31/2009 LESLIE DO, ROSANNA K 528.00 Stomatitis And Mucositis, Unspecified 12/31/2009 NELSON DO, ROSANNA K 528.00 Stomatitis And Mucositis, Unspecified 12/31/2009 528.00 Sto matitis And Mucositis, Unspecified 12/31/2009 528.00 Sto matitis And Mucositis, Unspecified 12/31/2009 JORDON ESCOBAR, NASRA 528.0 0 Stomatitis And Mucositis, Unspecified 12/31/2009 LESLIE DO ROSANNA K 528.00 Stomatitis And Mucositis, Unspecified 12/31/2009 NGOC COREAS MD, BARTOLOME A 528.00 Stomatitis And Mucositis, Unspecified 12/31/2009 528.00 Sto matitis And Mucositis, Unspecified 12/31/2009 LESLIE , ROSANNA K 528.00 Stomatitis And Mucositis, Unspecified 12/31/2009 528.00 Sto matitis And Mucositis, Unspecified 12/31/2009 528.00 Sto matitis And Mucositis, Unspecified 12/31/2009 528.00 Sto matitis And Mucositis, Unspecified 12/31/2009 528.00 Sto matitis And Mucositis, Unspecified 12/31/2009 528.00 Sto matitis And Mucositis, Unspecified 12/31/2009 528.00 Sto matitis And Mucositis, Unspecified 12/31/2009 WILY RAMIREZ MD 528.00 Stomatitis And Mucositis, Unspecified 12/31/2009 PACHECO WAGNER APRN A 528.00 Stomatitis And Mucositis, Unspecified 12/31/2009 NELSON ROSANNA JOHNSTON K 528.00 Stomatitis And Mucositis, Unspecified 12/31/2009 WILY RAMIREZ MD 528.00 Stomatitis And Mucositis, Unspecified 12/31/2009 BERNARD ANDREWSN, PACHECO A 528.00 Stomatitis And Mucositis, Unspecified 12/31/2009 RAFA LAZO APRN R 528.00 Stomatitis And Mucositis, Unspecified 12/31/2009 NELSON DO, ROSANNA K 528.00 Stomatitis And Mucositis, Unspecified 12/31/2009 CARROLL CORRIGAN, SIMA Briseno 528 .00 Stomatitis And Mucositis, Unspecified 12/31/2009 NELSON DO, ROSANNA K 528.00 Stomatitis And Mucositis, Unspecified 12/31/2009 NELSON DO, ROSANNA K 528.00 Stomatitis And Mucositis, Unspecified 12/31/2009 NELSON DO, ROSANNA K 528.00 Stomatitis And Mucositis, Unspecified 12/31/2009 BERNARD ANDREWSN, PACHECO A 528.00 Stomatitis And Mucositis, Unspecified 12/31/2009 NELSON DO, ROSANNA K 528.00 Stomatitis And Mucositis, Unspecified 12/31/2009 JAKOB CEVALLOS, AUSTIN D 528.00 Stomatitis And Mucositis, Unspecified 12/31/2009 NELSON DO, ROSANNA K 528.00 Stomatitis And Mucositis, Unspecified 12/31/2009 NELSON DO, ROSANNA K 528.00 Stomatitis And Mucositis, Unspecified 12/31/2009 NELSON DO, ROSANNA K 528.00 Stomatitis And Mucositis, Unspecified 12/31/2009 BERNARD ANDREWSN, PACHECO A 528.00 Stomatitis And Mucositis, Unspecified 12/31/2009 NELSON DO, ROSANNA K 528.00 Stomatitis And Mucositis, Unspecified 12/31/2009 KIMBERLY CORRIGAN, ONIEL R 528.00 Stomatitis And Mucositis, Unspecified 03/13/2010 NELSON DO, ROSANNA K 465.9 Upper Respiratory Infection 03/13/2010 NELSON DO, ROSANNA K 465.9 Upper Respiratory Infection 03/13/2010 465.9 Uppe r Respiratory Infection 03/13/2010 465.9 Uppe r Respiratory Infection 03/13/2010 JORDON ESCOBAR, NASRA 465.9 Upper Respiratory Infection 03/13/2010 NELSON DO, ROSANNA K 465.9 Upper Respiratory Infection 03/13/2010 NGOC COREAS MD, BARTOLOME A 465.9 Upper Respiratory Infection 03/13/2010 465.9 Uppe r Respiratory Infection 03/13/2010 NELSON DO, ROSANNA K 465.9 Upper Respiratory Infection 03/13/2010 465.9 Uppe r Respiratory Infection 03/13/2010 465.9 Uppe r Respiratory Infection 03/13/2010 465.9 Uppe r Respiratory Infection 03/13/2010 465.9 Uppe r Respiratory Infection 03/13/2010 465.9 Uppe r Respiratory Infection 03/13/2010 465.9 Uppe r Respiratory Infection 03/13/2010 WILY RAMIREZ MD 465.9 Upper Respiratory Infection 03/13/2010 BERNARD PSYCHIATRIC RN, PACHECO A 46 5.9 Upper Respiratory Infection 03/13/2010 NELSON DO, ROSANNA K 465.9 Upper Respiratory Infection 03/13/2010 WILY RAMIREZ MD 465.9 Upper Respiratory Infection 03/13/2010 BERNARD PSYCHIATRIC RN, PACHECO A 46 5.9 Upper Respiratory Infection 03/13/2010 JASPAL LAZO APRNINA R 465.9 Upper Respiratory Infection 03/13/2010 NELSON DO, ROSANNA K 465.9 Upper Respiratory Infection 03/13/2010 MADL PSYCHIATRIC RN, SIMA L 465 .9 Upper Respiratory Infection 03/13/2010 NELSON DO, ROSANNA K 465.9 Upper Respiratory Infection 03/13/2010 NELSON DO, ROSANNA K 465.9 Upper Respiratory Infection 03/13/2010 NELSON DO, ROSANNA K 465.9 Upper Respiratory Infection 03/13/2010 BERNARD PSYCHIATRIC RN, PACHECO A 46 5.9 Upper Respiratory Infection 03/13/2010 NELSON DO, ROSANNA K 465.9 Upper Respiratory Infection 03/13/2010 WHITE DDS, AUSTIN D 46 5.9 Upper Respiratory Infection 03/13/2010 NELSON DO, ROSANNA K 465.9 Upper Respiratory Infection 03/13/2010 NELSON DO, ROSANNA K 465.9 Upper Respiratory Infection 03/13/2010 NELSON DO, ROSANNA K 465.9 Upper Respiratory Infection 03/13/2010 BERNARD PSYCHIATRIC RN, PACHECO A 46 5.9 Upper Respiratory Infection 03/13/2010 NELSON DO, ROSANNA K 465.9 Upper Respiratory Infection 03/13/2010 KIMBERLY PSYCHIATRIC RN, ONIEL R 465.9 Upper Respiratory Infection 05/25/2010 NELSON DO, ROSANNA K 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 DYSFUNCTION 05/25/2010 NELSON DO ROSANNA K 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 DYSFUNCTION 05/25/2010 381.81 EUS TACHIAN TUBE DYSFUNCTION 05/25/2010 381.81 EUS TACHIAN TUBE DYSFUNCTION 05/25/2010 JORDON ESCOBAR, NASRA 381.8 1 EUSTACHIAN TUBE DYSFUNCTION 05/25/2010 NELSON DO ROSANNA K 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 DYSFUNCTION 05/25/2010 NGOC COREAS MD, BARTOLOME A 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 DYSFUNCTION 05/25/2010 381.81 EUS TACHIAN TUBE DYSFUNCTION 05/25/2010 NELSON SAGE JOHNSTONA K 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 DYSFUNCTION 05/25/2010 381.81 EUS TACHIAN TUBE DYSFUNCTION 05/25/2010 381.81 EUS TACHIAN TUBE DYSFUNCTION 05/25/2010 381.81 EUS TACHIAN TUBE DYSFUNCTION 05/25/2010 381.81 EUS TACHIAN TUBE DYSFUNCTION 05/25/2010 381.81 EUS TACHIAN TUBE DYSFUNCTION 05/25/2010 381.81 EUS TACHIAN TUBE DYSFUNCTION 05/25/2010 WILY RAMIREZ MD 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 DYSFUNCTION 05/25/2010 PACHECO WAGNER APRN 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 DYSFUNCTION 05/25/2010 SAGE NELSON DOA K 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 DYSFUNCTION 05/25/2010 WILY RAMIREZ MD 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 DYSFUNCTION 05/25/2010 PACHECO WAGNER APRN 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 DYSFUNCTION 05/25/2010 RAFA LAZO APRN 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 DYSFUNCTION 05/25/2010 SAGE NELSON DOA K 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 DYSFUNCTION 05/25/2010 SIMA HODGES APRN 381 .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 DYSFUNCTION 05/25/2010 NELSON DO ROSANNA K 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 DYSFUNCTION 05/25/2010 NELSON DO ROSANNA K 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 DYSFUNCTION 05/25/2010 NELSON DO ROSANNA K 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 DYSFUNCTION 05/25/2010 PACHECO WAGNER APRN A 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 DYSFUNCTION 05/25/2010 NELSON DO ROSANNA K 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 DYSFUNCTION 05/25/2010 JAKOB DDS, AUSTIN Cisneros 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 DYSFUNCTION 05/25/2010 NELSON DO, ROSANNA K 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 DYSFUNCTION 05/25/2010 NELSON DO, ROSANNA K 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 DYSFUNCTION 05/25/2010 NELSON DO, ROSANNA K 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 DYSFUNCTION 05/25/2010 PACHECO WAGNER APRN 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 DYSFUNCTION 05/25/2010 NELSON DO, ROSANNA K 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 DYSFUNCTION 05/25/2010 KIMBERLY CORRIGAN ONIEL R 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 DYSFUNCTION 08/03/2010 NELSON DO ROSANNA K 724.2 BACK PAIN, LOWER 08/03/2010 NELSON DO ROSANNA K 728.85 SPASM OF MUSCLE 08/03/2010 NELSON DO, ROSANNA K 724.2 BACK PAIN, LOWER 08/03/2010 NELSON DO ROSANNA K 728.85 SPASM OF MUSCLE 08/03/2010 724.2 BACK PAIN, LOWER 08/03/2010 728.85 SPA SM OF MUSCLE 08/03/2010 724.2 BACK PAIN, LOWER 08/03/2010 728.85 SPA SM OF MUSCLE 08/03/2010 NASRA RUVALCABA MD 724.2 BACK PAIN, LOWER 08/03/2010 NASRA RUVALCABA MD 728.8 5 SPASM OF MUSCLE 08/03/2010 NELSON DO ROSANNA K 724.2 BACK PAIN, LOWER 08/03/2010 NELSON DO ROSANNA K 728.85 SPASM OF MUSCLE 08/03/2010 BARTOLOME BILLY MD 724.2 BACK PAIN, LOWER 08/03/2010 BARTOLOME BILLY MD 728.85 SPASM OF MUSCLE 08/03/2010 724.2 BACK PAIN, LOWER 08/03/2010 728.85 SPA SM OF MUSCLE 08/03/2010 NELSON DO ROSANNA K 724.2 BACK PAIN, LOWER 08/03/2010 NELSON DO ROSANNA K 728.85 SPASM OF MUSCLE 08/03/2010 724.2 BACK PAIN, LOWER 08/03/2010 728.85 Spa sm Of Muscle 08/03/2010 724.2 BACK PAIN, LOWER 08/03/2010 728.85 Spa sm Of Muscle 08/03/2010 724.2 BACK PAIN, LOWER 08/03/2010 728.85 Spa sm Of Muscle 08/03/2010 724.2 BACK PAIN, LOWER 08/03/2010 728.85 Spa sm Of Muscle 08/03/2010 724.2 BACK PAIN, LOWER 08/03/2010 728.85 Spa sm Of Muscle 08/03/2010 724.2 BACK PAIN, LOWER 08/03/2010 728.85 Spa sm Of Muscle 08/03/2010 WILY RAMIREZ MD 724.2 BACK PAIN, LOWER 08/03/2010 WILY RAMIREZ MD 728.85 Spasm Of Muscle 08/03/2010 BERNARD PSYCHIATRIC RN, PACHECO A 72 4.2 BACK PAIN, LOWER 08/03/2010 BERNARD PSYCHIATRIC RN PACHECO A 728.85 Spasm Of Muscle 08/03/2010 NELSON DO, ROSANNA K 724.2 BACK PAIN, LOWER 08/03/2010 NELSON DO, ROSANNA K 728.85 Spasm Of Muscle 08/03/2010 WILY RAMIREZ MD 724.2 BACK PAIN, LOWER 08/03/2010 WILY RAMIREZ MD 728.85 Spasm Of Muscle 08/03/2010 BERNARD PSYCHIATRIC RN, PACHECO A 72 4.2 BACK PAIN, LOWER 08/03/2010 BERNARD PSYCHIATRIC RN, PACHECO A 728.85 Spasm Of Muscle 08/03/2010 CLIFTON PSYCHIATRIC RN, RAFA R 724.2 BACK PAIN, LOWER 08/03/2010 CLIFTON PSYCHIATRIC RN, RAFA R 728.85 Spasm Of Muscle 08/03/2010 NELSON DO, ROSANNA K 724.2 BACK PAIN, LOWER 08/03/2010 NELSON DO, ROSANNA K 728.85 Spasm Of Muscle 08/03/2010 MADL PSYCHIATRIC RN, SIMA L 724 .2 BACK PAIN, LOWER 08/03/2010 MADL PSYCHIATRIC RN, SIMA L 728 .85 Spasm Of Muscle 08/03/2010 NELSON DO, ROSANNA K 724.2 BACK PAIN, LOWER 08/03/2010 NELSON DO, ROSANNA K 728.85 Spasm Of Muscle 08/03/2010 NELSON DO, ROSANNA K 724.2 BACK PAIN, LOWER 08/03/2010 NELSON DO, ROSANNA K 728.85 Spasm Of Muscle 08/03/2010 NELSON DO, ROSANNA K 724.2 BACK PAIN, LOWER 08/03/2010 NELSON DO, ROSANNA K 728.85 Spasm Of Muscle 08/03/2010 BERNARD PSYCHIATRIC RN, PACHECO A 72 4.2 BACK PAIN, LOWER 08/03/2010 BERNARD PSYCHIATRIC RN, PACHECO A 728.85 Spasm Of Muscle 08/03/2010 NELSON DO, ROSANNA K 724.2 BACK PAIN, LOWER 08/03/2010 NELSON DO, ROSANNA K 728.85 Spasm Of Muscle 08/03/2010 WHITE DDS, AUSTIN D 72 4.2 BACK PAIN, LOWER 08/03/2010 WHITE DDS, AUSTIN [...] K 728.85 Spasm Of Muscle 08/03/2010 BERNARD PSYCHIATRIC RN, PACHECO A 72 4.2 BACK PAIN, LOWER 08/03/2010 BERNARD PSYCHIATRIC RN, PACHECO A 728.85 Spasm Of Muscle 08/03/2010 NELSON DO, ROSANNA K 724.2 BACK PAIN, LOWER 08/03/2010 NELSON DO, ROSANNA K 728.85 Spasm Of Muscle 08/03/2010 HARRIS PSYCHIATRIC RN, ONIEL R 724.2 BACK PAIN, LOWER 08/03/2010 HARRIS PSYCHIATRIC RN, ONIEL R 728.85 Spasm Of Muscle 08/12/2010 NELSON DO, ROSANNA K 386.2 VERTIGO OF CENTRAL ORIGIN 08/12/2010 NELSON DO, ROSANNA K 386.2 VERTIGO OF CENTRAL ORIGIN 08/12/2010 386.2 VERT IGO OF CENTRAL ORIGIN 08/12/2010 386.2 VERT IGO OF CENTRAL ORIGIN 08/12/2010 JORDON ESCOBAR, NASRA 386.2 VERTIGO OF CENTRAL ORIGIN 08/12/2010 NELSON DO, ROSANNA K 386.2 Vertigo Of Central Origin 08/12/2010 NGOC COREAS MD, BARTOLOME A 386.2 Vertigo Of Central Origin 08/12/2010 386.2 Vert igo Of Central Origin 08/12/2010 NELSON DO, ROSANNA K 386.2 Vertigo Of Central Origin 08/12/2010 386.2 Vert igo Of Central Origin 08/12/2010 386.2 Vert igo Of Central Origin 08/12/2010 386.2 Vert igo Of Central Origin 08/12/2010 386.2 Vert igo Of Central Origin 08/12/2010 386.2 Vert igo Of Central Origin 08/12/2010 386.2 Vert igo Of Central Origin 08/12/2010 WILY RAMIREZ MD 386.2 Vertigo Of Central Origin 08/12/2010 BERNARD CORRIGAN PACHECO A 38 6.2 Vertigo Of Central Origin 08/12/2010 NELSON DO, ROSANNA K 386.2 Vertigo Of Central Origin 08/12/2010 WILY RAMIREZ MD 386.2 Vertigo Of Central Origin 08/12/2010 BERNARD CORRIGAN PACHECO A 38 6.2 Vertigo Of Central Origin 08/12/2010 RAFA LAZO APRN 386.2 Vertigo Of Central Origin 08/12/2010 NELSON DO, ROSANNA K 386.2 Vertigo Of Central Origin 08/12/2010 SIMA HODGES APRN 386 .2 Vertigo Of Central Origin 08/12/2010 NELSON DO, ROSANNA K 386.2 Vertigo Of Central Origin 08/12/2010 NELSON DO, ROSANNA K 386.2 Vertigo Of Central Origin 08/12/2010 NELSON DO, ROSANNA K 386.2 Vertigo Of Central Origin 08/12/2010 BERNARD CORRIGAN PACHECO A 38 6.2 Vertigo Of Central Origin 08/12/2010 NELSON DO, ROSANNA K 386.2 Vertigo Of Central Origin 08/12/2010 AUSTIN ROBERT DDS 38 6.2 Vertigo Of Central Origin 08/12/2010 NELSON DO, ROSANNA K 386.2 Vertigo Of Central Origin 08/12/2010 NELSON DO, ROSANNA K 386.2 Vertigo Of [facility] [place] 08/12/2010 NELSON DO, ROSANNA K 386.2 Vertigo Of Central Origin 08/12/2010 BERNARD CORRIGAN PACHECO A 38 6.2 Vertigo Of Central Origin 08/12/2010 NELSON DO, ROSANNA K 386.2 Vertigo Of [place] Origin 08/12/2010 ONIEL HARRIS APRN 386.2 Vertigo Of Central Origin 08/26/2010 NELSON DO, ROSANNA K 790.29 OTHER ABNORMAL GLUCOSE 08/26/2010 NELSON DO, ROSANNA K 790.29 OTHER ABNORMAL GLUCOSE 08/26/2010 790.29 OTH ER ABNORMAL GLUCOSE 08/26/2010 790.29 OTH ER ABNORMAL GLUCOSE 08/26/2010 NASRA RUVALCABA MD 790.2 9 OTHER ABNORMAL GLUCOSE 08/26/2010 NELSON DO, ROSANNA K 790.29 Other Abnormal Glucose 08/26/2010 [facility] BARTOLOME COREAS MD A 790.29 Other Abnormal Glucose 08/26/2010 790.29 Oth er Abnormal Glucose 08/26/2010 NELSON DO, ROSANNA K 790.29 Other Abnormal Glucose 08/26/2010 790.29 Oth er Abnormal Glucose 08/26/2010 790.29 Oth er Abnormal Glucose 08/26/2010 790.29 Oth er Abnormal Glucose 08/26/2010 790.29 Oth er Abnormal Glucose 08/26/2010 790.29 Oth er Abnormal Glucose 08/26/2010 790.29 Oth er Abnormal Glucose 08/26/2010 WILY RAMIREZ MD 790.29 Other Abnormal Glucose 08/26/2010 AMIRAH WAGNER APRNIDI A 790.29 Other Abnormal Glucose 08/26/2010 NELSON DO, ROSANNA K 790.29 Other Abnormal Glucose 08/26/2010 WILY RAMIREZ MD 790.29 Other Abnormal Glucose 08/26/2010 BERNARD CORRIGAN PACHECO A 790.29 Other Abnormal Glucose 08/26/2010 RAFA LAZO APRN R 790.29 Other Abnormal Glucose 08/26/2010 NELSON DO, ROSANNA K 790.29 Other Abnormal Glucose 08/26/2010 SIMA HODGES APRN 790 .29 Other Abnormal Glucose 08/26/2010 NELSON DO, ROSANNA K 790.29 Other Abnormal Glucose 08/26/2010 NELSON DO, ROSANNA K 790.29 Other Abnormal Glucose 08/26/2010 NELSON DO, ROSANNA K 790.29 Other Abnormal Glucose 08/26/2010 BERNARD PSYCHIATRIC RN, PACHECO A 790.29 Other Abnormal Glucose 08/26/2010 NELSON DO, ROSANNA K 790.29 Other Abnormal Glucose 08/26/2010 WHITE DDS, AUSTIN D 790.29 Other Abnormal Glucose 08/26/2010 NELSON DO, ROSANNA K 790.29 Other Abnormal Glucose 08/26/2010 NELSON DO, ROSANNA K 790.29 Other Abnormal Glucose 08/26/2010 NELSON DO, ROSANNA K 790.29 Other Abnormal Glucose 08/26/2010 BERNARD CORRIGAN, PACHECO A 790.29 Other Abnormal Glucose 08/26/2010 NELSON DO, ROSANNA K 790.29 Other Abnormal Glucose 08/26/2010 ONIEL HARRIS APRN 790.29 Other Abnormal Glucose 12/09/2010 NELSON DO, ROSANNA K 780.4 DIZZINESS AND VERTIGO 12/09/2010 NELSON DO, ROSANNA K 780.4 DIZZINESS AND VERTIGO 12/09/2010 780.4 DIZZ INESS AND VERTIGO 12/09/2010 780.4 DIZZ INESS AND VERTIGO 12/09/2010 NASRA RUVALCABA MD 780.4 DIZZINESS AND VERTIGO 12/09/2010 NELSON DO, ROSANNA K 780.4 Dizziness And Vertigo 12/09/2010 NGOC COREAS MD, BARTOLOME Willis 780.4 Dizziness And Vertigo 12/09/2010 780.4 Dizz iness And Vertigo 12/09/2010 NELSON DO, ROSANNA K 780.4 Dizziness And Vertigo 12/09/2010 780.4 Dizz iness And Vertigo 12/09/2010 780.4 Dizz iness And Vertigo 12/09/2010 780.4 Dizz iness And Vertigo 12/09/2010 780.4 Dizz iness And Vertigo 12/09/2010 780.4 Dizz iness And Vertigo 12/09/2010 780.4 Dizz iness And Vertigo 12/09/2010 WILY RAMIREZ MD 780.4 Dizziness And Vertigo 12/09/2010 BERNARD CORRIGAN, PACHECO A 78 0.4 Dizziness And Vertigo 12/09/2010 NELSON DO, ROSANNA K 780.4 Dizziness And Vertigo 12/09/2010 WILY RAMIREZ MD 780.4 Dizziness And Vertigo 12/09/2010 BERNARD CORRIGAN PACHECO A 78 0.4 Dizziness And Vertigo 12/09/2010 CLIFTON PSYCHIATRIC RN, RAFA R 780.4 Dizziness And Vertigo 12/09/2010 NELSON DO, ROSANNA K 780.4 Dizziness And Vertigo 12/09/2010 CARROLL CORRIGAN SIMA Fnin 780 .4 Dizziness And Vertigo 12/09/2010 NELSON DO, ROSANNA K 780.4 Dizziness And Vertigo 12/09/2010 NELSON DO, ROSANNA K 780.4 Dizziness And Vertigo 12/09/2010 NELSON DO, ROSANNA K 780.4 Dizziness And Vertigo 12/09/2010 BERNARD CORRIGAN PACHECO A 78 0.4 Dizziness And Vertigo 12/09/2010 NELSON DO, ROSANNA K 780.4 Dizziness And Vertigo 12/09/2010 WHITE DDS, AUSTIN D 78 0.4 Dizziness And Vertigo 12/09/2010 NELSON DO, ROSANNA K 780.4 Dizziness And Vertigo 12/09/2010 NELSON DO, ROSANNA K 780.4 Dizziness And Vertigo 12/09/2010 NELSON DO, ROSANNA K 780.4 Dizziness And Vertigo 12/09/2010 BERNARD CORRIGAN PACHECO A 78 0.4 Dizziness And Vertigo 12/09/2010 NELSON DO, ROSANNA K 780.4 Dizziness And Vertigo 12/09/2010 ONIEL HARRIS APRN R 780.4 Dizziness And Vertigo 01/22/2011 NELSON DOSAGEA K 462 ACUTE PHARYNGITIS 01/22/2011 NELSON SAGE JOHNSTONA K 462 ACUTE PHARYNGITIS 01/22/2011 462 ACUTE PHARYNGITIS 01/22/2011 462 ACUTE PHARYNGITIS 01/22/2011 JORDON ESCOBAR, NASRA 462 ACUTE PHARYNGITIS 01/22/2011 NELSON SAGE JOHNSTONA K 462 Acute Pharyngitis 01/22/2011 NGOC COREAS MD, BARTOLOME Willis 462 Acute Pharyngitis 01/22/2011 462 Acute Pharyngitis 01/22/2011 NELSON SAGE JOHNSTONA K 462 Acute Pharyngitis 01/22/2011 462 Acute Pharyngitis 01/22/2011 462 Acute Pharyngitis 01/22/2011 462 Acute Pharyngitis 01/22/2011 462 Acute Pharyngitis 01/22/2011 462 Acute Pharyngitis 01/22/2011 462 Acute Pharyngitis 01/22/2011 WILY RAMIREZ MD 462 Acute Pharyngitis 01/22/2011 BERNARD PSYCHIATRIC RN, PACHECO A 46 2 Acute Pharyngitis 01/22/2011 NELSON DO, ROSANNA K 462 Acute Pharyngitis 01/22/2011 WILY RAMIREZ MD 462 Acute Pharyngitis 01/22/2011 BERNARD CORRIGAN, PACHECO A 46 2 Acute Pharyngitis 01/22/2011 RAFA LAZO APRN 4 62 Acute Pharyngitis 01/22/2011 NELSON DO, ROSANNA K 462 Acute Pharyngitis 01/22/2011 SIMA HODGES APRN 462 Acute Pharyngitis 01/22/2011 NELSON DO, ROSANNA K 462 Acute Pharyngitis 01/22/2011 NELSON DO, ROSANNA K 462 Acute Pharyngitis 01/22/2011 NELSON DO, ROSANNA K 462 Acute Pharyngitis 01/22/2011 BERNARD CORRIGAN, PACHECO A 46 2 Acute Pharyngitis 01/22/2011 NELSON DO, ROSANNA K 462 Acute Pharyngitis 01/22/2011 JAKOB PARDOS, AUSTIN Cisneros 46 2 Acute Pharyngitis 01/22/2011 NELSON DO, ROSANNA K 462 Acute Pharyngitis 01/22/2011 NELSON DO, ROSANNA K 462 Acute Pharyngitis 01/22/2011 NELSON DO, ORSANNA K 462 Acute Pharyngitis 01/22/2011 BERNARD CORRIGAN, PACHECO A 46 2 Acute Pharyngitis 01/22/2011 NELSON DO, ROSANNA K 462 Acute Pharyngitis 01/22/2011 ONIEL HARRIS APRN R 462 Acute Pharyngitis 02/21/2011 NELSON DO, ROSANNA K 372.30 CONJUNCTIVITIS UNSPECIFIED 02/21/2011 NELSON DO, ROSANNA K 372.30 CONJUNCTIVITIS UNSPECIFIED 02/21/2011 372.30 CON JUNCTIVITIS UNSPECIFIED 02/21/2011 372.30 CON JUNCTIVITIS UNSPECIFIED 02/21/2011 JORDON ESCOBAR, NASRA 372.3 0 CONJUNCTIVITIS UNSPECIFIED 02/21/2011 NELSON DO, ROSANNA K 372.30 Conjunctivitis Unspecified 02/21/2011 NGOC COREAS MD, BARTOLOME Willis 372.30 Conjunctivitis Unspecified 02/21/2011 372.30 Con junctivitis Unspecified 02/21/2011 NELSON DO, ROSANNA K 372.30 Conjunctivitis Unspecified 02/21/2011 372.30 Con junctivitis Unspecified 02/21/2011 372.30 Con junctivitis Unspecified 02/21/2011 372.30 Con junctivitis Unspecified 02/21/2011 372.30 Con junctivitis Unspecified 02/21/2011 372.30 Con junctivitis Unspecified 02/21/2011 372.30 Con junctivitis Unspecified 02/21/2011 WILY RAMIREZ MD 372.30 Conjunctivitis Unspecified 02/21/2011 BERNARDAngela CORRIGAN PACHECO A 372.30 Conjunctivitis Unspecified 02/21/2011 NELSON DO, ROSANNA K 372.30 Conjunctivitis Unspecified 02/21/2011 WILY RAMIREZ MD 372.30 Conjunctivitis Unspecified 02/21/2011 BERNRAD CORRIGAN PACHECO A 372.30 Conjunctivitis Unspecified 02/21/2011 RAFA LAZO APRN 372.30 Conjunctivitis Unspecified 02/21/2011 NELSON DO, ROSANNA K 372.30 Conjunctivitis Unspecified 02/21/2011 SIMA HODGES APRN 372 .30 Conjunctivitis Unspecified 02/21/2011 NELSON DO, ROSANNA K 372.30 Conjunctivitis Unspecified 02/21/2011 NELSON DO, ROSANNA K 372.30 Conjunctivitis Unspecified 02/21/2011 NELSON DO, ROSANNA K 372.30 Conjunctivitis Unspecified 02/21/2011 BERNARD CORRIGAN PACHECO A 372.30 Conjunctivitis Unspecified 02/21/2011 NELSON DO, ROSANNA K 372.30 Conjunctivitis Unspecified 02/21/2011 JAKOB PARDOSAUSTIN 372.30 Conjunctivitis Unspecified 02/21/2011 NELSON DO, ROSANNA [...] 04/29/2011 388.70 OTALGIA 04/29/2011 JORDON ESCOBAR, NASRA 388.7 0 OTALGIA 04/29/2011 NELSON DO, ROSANNA K 388.70 [...] K 388.70 Otalgia 04/29/2011 SIMA HODGES APRN 388 .70 Otalgia 04/29/2011 NELSON DO, ROSANNA K 388.70 [...] PACHECO WAGNER APRN A 388.70 Otalgia 04/29/2011 ROSANNA NELSON DO 388.70 Otalgia 04/29/2011 ONIEL HARRIS APRN 388.70 Otalgia 06/14/2011 ROSANNA NELSON DO 382.00 OTITIS MEDIA ACUTE SUPPURATIVE 06/14/2011 ROSANNA NELSON DO 382.00 OTITIS MEDIA ACUTE SUPPURATIVE 06/14/2011 382.00 ERIN TIS MEDIA ACUTE SUPPURATIVE 06/14/2011 382.00 ERIN TIS MEDIA ACUTE SUPPURATIVE 06/14/2011 JORDON ESCOBAR, NASRA 382.0 0 OTITIS MEDIA ACUTE SUPPURATIVE 06/14/2011 ROSANNA NELSON DO 382.00 Otitis Media Acute Suppurative 06/14/2011 NGOC COREAS MD, BARTOLOME A 382.00 Otitis Media Acute Suppurative 06/14/2011 382.00 Erin tis Media Acute Suppurative 06/14/2011 ROSANNA NELSON DO 382.00 Otitis Media Acute Suppurative 06/14/2011 382.00 Erin tis Media Acute Suppurative 06/14/2011 382.00 Erin tis Media Acute Suppurative 06/14/2011 382.00 Erin tis Media Acute Suppurative 06/14/2011 382.00 Erin tis Media Acute Suppurative 06/14/2011 382.00 Erin tis Media Acute Suppurative 06/14/2011 382.00 Erin tis Media Acute Suppurative 06/14/2011 WILY RAMIREZ MD [...] Media Acute Suppurative 06/14/2011 SIMA HODGES APRN 382 .00 Otitis Media Acute Suppurative 06/14/2011 NELSON DO, ROSANNA K 382.00 Otitis Media Acute Suppurative 06/14/2011 NELSON DO, ROSANNA K 382.00 Otitis Media Acute Suppurative 06/14/2011 NELSON DO, ROSANNA K 382.00 Otitis Media Acute Suppurative 06/14/2011 BERNARD PSYCHIATRIC RN, PACHECO A 382.00 Otitis Media Acute Suppurative 06/14/2011 NELSON DO, ROSANNA K 382.00 Otitis Media Acute Suppurative 06/14/2011 WHITE DDS, AUSTIN Cisneros 382.00 Otitis Media Acute Suppurative 06/14/2011 NELSON DO, ROSANNA K 382.00 Otitis Media Acute Suppurative 06/14/2011 NELSON DO, ROSANNA K 382.00 Otitis Media Acute Suppurative 06/14/2011 NELSON DO, ROSANNA K 382.00 Otitis Media Acute Suppurative 06/14/2011 BERNARD PSYCHIATRIC RN, PACHECO A 382.00 Otitis Media Acute Suppurative [...] K 786.52 CHEST WALL PAIN 08/18/2011 616.10 VAG INITIS VULVOVAGINITIS UNSPECIFIED 08/18/[address] WALL PAIN 08/18/2011 616.10 VAG INITIS VULVOVAGINITIS UNSPECIFIED 08/18/[address] WALL PAIN 08/18/2011 NASRA RUVALCABA MD 616.1 0 VAGINITIS VULVOVAGINITIS UNSPECIFIED 08/18/2011 NASRA RUVALCABA MD 786.5 2 CHEST WALL PAIN 08/18/2011 NELSON DO, ROSANNA K 616.10 VAGINITIS VULVOVAGINITIS UNSPECIFIED 08/18/2011 NELSON DO, ROSANNA K 786.52 Chest Wall Pain 08/18/2011 NGOC COREAS MD, BARTOLOME Willis 616.10 VAGINITIS VULVOVAGINITIS UNSPECIFIED 08/18/2011 NGOC COREAS MD, BARTOLOME A 786.52 Chest Wall Pain 08/18/2011 616.10 VAG INITIS VULVOVAGINITIS UNSPECIFIED 08/18/[address] Wall Pain 08/18/2011 ROSANNA NELSON DO K 616.10 VAGINITIS VULVOVAGINITIS UNSPECIFIED 08/18/2011 ROSANNA NELSON DO K 786.52 Chest Wall Pain 08/18/2011 616.10 Vag initis Vulvovaginitis Unspecified 08/18/[address] Wall Pain 08/18/2011 616.10 Vag initis Vulvovaginitis Unspecified 08/18/[address] Wall Pain 08/18/2011 616.10 Vag initis Vulvovaginitis Unspecified 08/18/[address] Wall Pain 08/18/2011 616.10 Vag initis Vulvovaginitis Unspecified 08/18/[address] Wall Pain 08/18/2011 616.10 Vag initis Vulvovaginitis Unspecified 08/18/[address] Wall Pain 08/18/2011 616.10 Vag initis Vulvovaginitis Unspecified 08/18/[address] Wall Pain 08/18/2011 WILY RAMIREZ MD 616.10 [...] APRN A 616.10 Vaginitis Vulvovaginitis Unspecified 08/18/2011 BERNARD PSYCHIATRIC RN, PACHECO A 786.52 Chest Wall Pain 08/18/2011 CLIFTON PSYCHIATRIC RN, RAFA R 616.10 Vaginitis Vulvovaginitis Unspecified 08/18/2011 CLIFTON PSYCHIATRIC RN, RAFA R 786.52 Chest Wall Pain 08/18/2011 NELSON DO, ROSANNA K 616.10 Vaginitis Vulvovaginitis Unspecified 08/18/2011 NELSON DO, ROSANNA K 786.52 Chest Wall Pain 08/18/2011 MADL PSYCHIATRIC RN, SIMA L 616 .10 Vaginitis Vulvovaginitis Unspecified 08/18/2011 MADL PSYCHIATRIC RN, SIMA L 786 .52 Chest Wall Pain 08/18/2011 NELSON DO, ROSANNA K 616.10 Vaginitis Vulvovaginitis Unspecified 08/18/2011 NELSON DO, ROSANNA K 786.52 Chest Wall Pain 08/18/2011 NELSON DO, ROSANNA K 616.10 Vaginitis Vulvovaginitis Unspecified 08/18/2011 NELSON DO, ROSANNA K 786.52 Chest Wall Pain 08/18/2011 NELSON DO, ROSANNA K 616.10 Vaginitis Vulvovaginitis Unspecified 08/18/2011 NELSON DO, ROSANNA K 786.52 Chest Wall Pain 08/18/2011 BERNARD PSYCHIATRIC RN, PACHECO A 616.10 Vaginitis Vulvovaginitis Unspecified 08/18/2011 BERNARD PSYCHIATRIC RN, PACHECO A 786.52 Chest Wall Pain 08/18/2011 [...] K 616.10 Vaginitis Vulvovaginitis Unspecified 08/18/2011 NELSON DO ROSANNA K 786.52 Chest Wall Pain 08/18/2011 BERNARD PSYCHIATRIC RN, PACHECO A 616.10 Vaginitis Vulvovaginitis Unspecified 08/18/2011 BERNARD PSYCHIATRIC RN, PACHECO A 786.52 Chest Wall Pain 08/18/2011 NELSON DO ROSANNA K 616.10 Vaginitis Vulvovaginitis Unspecified 08/18/2011 NELSON DO ROSANNA K 786.52 Chest Wall Pain 08/18/2011 HARRIS PSYCHIATRIC RN, ONIEL R 616.10 Vaginitis Vulvovaginitis Unspecified 08/18/2011 HARRIS PSYCHIATRIC RN, ONIEL R 786.52 Chest Wall Pain 12/16/2011 NELSON DOSAGEA K 268.9 UNSPECIFIED VITAMIN D DEFICIENCY 12/16/2011 NELSON DO ROSANNA K 461.9 SINUSITIS ACUTE 12/16/2011 NELSON DO ROSANNA K 599.0 URINARY TRACT INFECTION 12/16/2011 SAGE NELSON DOA K 268.9 UNSPECIFIED VITAMIN D DEFICIENCY 12/16/2011 SAGE NELSON DOA K 461.9 SINUSITIS ACUTE 12/16/2011 NELSON DO ROSANNA K 599.0 URINARY TRACT INFECTION 12/16/2011 268.9 UNSP ECIFIED VITAMIN D DEFICIENCY 12/16/2011 461.9 SINU SITIS ACUTE 12/16/2011 599.0 URIN PETE TRACT INFECTION 12/16/2011 268.9 UNSP ECIFIED VITAMIN D DEFICIENCY 12/16/2011 461.9 SINU SITIS ACUTE 12/16/2011 599.0 URIN PETE TRACT INFECTION 12/16/2011 NASRA RUVALCABA MD 268.9 VITAMIN D DEFICIENCY 12/16/2011 NASRA RUVALCABA MD 461.9 SINUSITIS ACUTE 12/16/2011 NASRA RUVALCABA MD 599.0 URINARY TRACT INFECTION 12/16/2011 ROSANNA NELSON DO 268.9 VITAMIN D DEFICIENCY 12/16/2011 NELSON SAGE JOHNSTONA K 461.9 Sinusitis Acute 12/16/2011 NELSON DO ROSANNA K 599.0 Urinary Tract Infection 12/16/2011 BARTOLOME BILLY MD 268.9 VITAMIN D DEFICIENCY 12/16/2011 EASH LYUDMILA MD, BARTOLOME A 461.9 Sinusitis Acute 12/16/2011 NGOC COREAS MD, BARTOLOME A 599.0 Urinary Tract Infection 12/16/2011 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 12/16/2011 461.9 Sinu sitis Acute 12/16/2011 599.0 Urin pete Tract Infection 12/16/2011 NELSON DO ROSANNA K 268.9 VITAMIN D DEFICIENCY 12/16/2011 NELSON DO, ROSANNA K 461.9 Sinusitis Acute 12/16/2011 NELSON DO, ROSANNA K 599.0 Urinary Tract Infection 12/16/2011 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 12/16/2011 461.9 Sinu sitis Acute 12/16/2011 599.0 Urin pete Tract Infection 12/16/2011 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 12/16/2011 461.9 Sinu sitis Acute 12/16/2011 599.0 Urin pete Tract Infection 12/16/2011 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 12/16/2011 461.9 Sinu sitis Acute 12/16/2011 599.0 Urin pete Tract Infection 12/16/2011 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 12/16/2011 461.9 Sinu sitis Acute 12/16/2011 599.0 Urin pete Tract Infection 12/16/2011 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 12/16/2011 461.9 Sinu sitis Acute 12/16/2011 599.0 Urin pete Tract Infection 12/16/2011 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 12/16/2011 461.9 Sinu sitis Acute 12/16/2011 599.0 Urin pete Tract Infection 12/16/2011 WILY RAMIREZ MD 268.9 VITAMIN D DEFICIENCY 12/16/2011 WILY RAMIREZ MD 461.9 Sinusitis Acute 12/16/2011 WILY RAMIREZ MD 599.0 Urinary Tract Infection 12/16/2011 PACHECO WAGNER APRN A 26 8.9 VITAMIN D DEFICIENCY 12/16/2011 PACHECO WAGNER APRN A 46 1.9 Sinusitis Acute 12/16/2011 PACHECO WAGNER APRN A 59 9.0 Urinary Tract Infection 12/16/2011 NELSON DO, ROSANNA K 268.9 VITAMIN D DEFICIENCY 12/16/2011 NELSON DO, ROSANNA K 461.9 Sinusitis Acute 12/16/2011 ENLSON DO, ROSANNA K 599.0 Urinary Tract Infection 12/16/2011 WILY RAMIREZ MD 268.9 VITAMIN D DEFICIENCY 12/16/2011 JAMES ESCOBAR, WILY 461.9 Sinusitis Acute 12/16/2011 JAMES ESCOBAR, WILY 599.0 Urinary Tract Infection 12/16/2011 BERNARD PSYCHIATRIC RN, PACHECO A 26 8.9 VITAMIN D DEFICIENCY 12/16/2011 BERNARD PSYCHIATRIC RN, PACHECO A 46 1.9 Sinusitis Acute 12/16/2011 BERNARD PSYCHIATRIC RN, PACHECO A 59 9.0 Urinary Tract Infection 12/16/2011 CLIFTON PSYCHIATRIC RN, RAFA R 268.9 VITAMIN D DEFICIENCY 12/16/2011 CLIFTON PSYCHIATRIC RN, RAFA R 461.9 Sinusitis Acute 12/16/2011 CLIFTON PSYCHIATRIC RN, RAFA R 599.0 Urinary Tract Infection 12/16/2011 NELSON DO, ROSANNA K 268.9 VITAMIN D DEFICIENCY 12/16/2011 NELSON DO, ROSANNA K 461.9 Sinusitis Acute 12/16/2011 NELSON DO, ROSANNA K 599.0 Urinary Tract Infection 12/16/2011 MADL PSYCHIATRIC RN, SIMA L 268 .9 VITAMIN D DEFICIENCY 12/16/2011 MADL PSYCHIATRIC RN, SIMA L 461 .9 Sinusitis Acute 12/16/2011 MADL PSYCHIATRIC RN, SIMA L 599 .0 Urinary Tract Infection 12/16/2011 NELSON DO, ROSANNA [...] K 599.0 Urinary Tract Infection 12/16/2011 BERNARD PSYCHIATRIC RN, PACHECO A 26 8.9 VITAMIN D DEFICIENCY 12/16/2011 BERNARD CORRIGAN, PACHECO A 46 1.9 Sinusitis Acute 12/16/2011 BERNARD CORRIGAN, PACHECO A 59 9.0 Urinary Tract Infection 12/16/2011 NELSON DO, ROSANNA K 268.9 VITAMIN D DEFICIENCY 12/16/2011 NELSON DO, ROSANNA K 461.9 Sinusitis Acute 12/16/2011 NELSON DO, ROSANNA K 599.0 Urinary Tract Infection 12/16/2011 WHITE DDS, AUSTIN D 26 8.9 VITAMIN D DEFICIENCY 12/16/2011 WHITE DDS, AUSTIN D 46 1.9 Sinusitis Acute 12/16/2011 WHITE DDS, AUSTIN D 59 9.0 Urinary Tract Infection 12/16/2011 NELSON DO, ROSANNA [...] ROSANNA K 599.0 Urinary Tract Infection 12/16/2011 AMIRAH WAGNER APRNIDI A 26 8.9 VITAMIN D DEFICIENCY 12/16/2011 AMIRAH WAGNER APRNIDI A 46 1.9 Sinusitis Acute 12/16/2011 AMIRAH WAGNER APRNIDI A 59 9.0 Urinary Tract Infection 12/16/2011 NELSON DO, ROSANNA K 268.9 VITAMIN D DEFICIENCY 12/16/2011 NELSON DO, ROSANNA K 461.9 Sinusitis Acute 12/16/2011 NELSON DO, ROSANNA K 599.0 Urinary Tract Infection 12/16/2011 KIMBERLEY HARRIS APRNRICIA R 268.9 VITAMIN D DEFICIENCY 12/16/2011 KIMBERLY CORRIGAN ONIEL R 461.9 Sinusitis Acute 12/16/2011 KIMBERLEY HARRIS APRNRICIA R 599.0 Urinary Tract Infection 02/29/2012 NELSON DO, ROSANNA K 008.8 GASTROENTERITIS, VIRAL 02/29/2012 NELSON DO ROSANNA K 787.02 NAUSEA ALONE 02/29/2012 NELSON DO, ROSANNA K 787.91 DIARRHEA 02/29/2012 NELSON DO ROSANNA K 008.8 GASTROENTERITIS, VIRAL 02/29/2012 NELSON DO, ROSANNA K 787.02 NAUSEA ALONE 02/29/2012 NELSON DO, ROSANNA K 787.91 DIARRHEA 02/29/2012 008.8 NAZIA ROENTERITIS, VIRAL 02/29/2012 787.02 KAJAL SEA ALONE 02/29/2012 787.91 ALBA RRHEA 02/29/2012 008.8 NAZIA ROENTERITIS, VIRAL 02/29/2012 787.02 KAJAL SEA ALONE 02/29/2012 787.91 ALBA RRHEA 02/29/2012 NASRA RUVALCABA MD 008.8 GASTROENTERITIS, VIRAL 02/29/2012 NASRA RUVALCABA MD 787.0 2 NAUSEA ALONE 02/29/2012 NASRA RUVALCABA MD 787.9 1 DIARRHEA 02/29/2012 ROSANNA NELSON DO 008.8 Gastroenteritis, Viral 02/29/2012 SAGE NELSON DOA K 787.02 Nausea Alone 02/29/2012 NELSON SAGE JOHNSTONA K 787.91 Diarrhea 02/29/2012 NGOC COREAS MD, BARTOLOME Willis 008.8 Gastroenteritis, Viral 02/29/2012 NGOC COREAS MD, BARTOLOME A 787.02 Nausea Alone 02/29/2012 NGOC COREAS MD, BARTOLOME A 787.91 Diarrhea 02/29/2012 008.8 Nazia roenteritis, Viral 02/29/2012 787.02 Kajal sea Alone 02/29/2012 787.91 Alba rrhea 02/29/2012 NELSON SAGE JOHNSTONA K 008.8 Gastroenteritis, Viral 02/29/2012 NELSON DO ROSANNA K 787.02 Nausea Alone 02/29/2012 NELSON DO ROSANNA K 787.91 Diarrhea 02/29/2012 008.8 Nazia roenteritis, Viral 02/29/2012 787.02 Kajal sea Alone 02/29/2012 787.91 Alba rrhea 02/29/2012 008.8 Nazia roenteritis, Viral 02/29/2012 787.02 [place] sea Alone 02/29/2012 787.91 Alba rrhea 02/29/2012 008.8 Nazia roenteritis, Viral 02/29/2012 787.02 [place] sea Alone 02/29/2012 787.91 Alba rrhea 02/29/2012 008.8 Nazia roenteritis, Viral 02/29/2012 787.02 [place] sea Alone 02/29/2012 787.91 Alba rrhea 02/29/2012 008.8 Nazia roenteritis, Viral 02/29/2012 787.02 [place] sea Alone 02/29/2012 787.91 Alba rrhea 02/29/2012 008.8 Nazia roenteritis, Viral 02/29/2012 787.02 [place] sea Alone 02/29/2012 787.91 Alba rrhea 02/29/2012 JAMES ESCOBAR, WILY 008.8 Gastroenteritis, Viral 02/29/2012 JAMES ESCOBAR, WILY 787.02 Nausea Alone 02/29/2012 JAMES ESCOBAR, WILY 787.91 Diarrhea 02/29/2012 PACHECO WAGNER APRN A 00 8.8 Gastroenteritis, Viral 02/29/2012 AMIRAH WAGNER APRNIDI A 787.02 Nausea Alone 02/29/2012 AMIRAH WAGNER APRNIDI A 787.91 Diarrhea 02/29/2012 ROSANNA NELSON DO K 008.8 Gastroenteritis, Viral 02/29/2012 ROSANNA NELSON DO K 787.02 Nausea Alone 02/29/2012 SAGE NELSON DOA K 787.91 Diarrhea 02/29/2012 WILY RAMIREZ MD 008.8 Gastroenteritis, Viral 02/29/2012 JAMES ESCOBAR, WILY 787.02 Nausea Alone 02/29/2012 JAMES ESCOBAR, WILY 787.91 Diarrhea 02/29/2012 BERNARD CORRIGAN PACHECO A 00 8.8 Gastroenteritis, Viral 02/29/2012 BERNARD CORRIGAN PACHECO A 787.02 Nausea Alone 02/29/2012 BERNARD CORRIGAN PACHECO A 787.91 Diarrhea 02/29/2012 RAFA LAZO APRN R 008.8 Gastroenteritis, Viral 02/29/2012 CLIFTON CORRIGAN RAFA R 787.02 Nausea Alone 02/29/2012 CLIFTON CORRIGAN RAFA R 787.91 Diarrhea 02/29/2012 ROSANNA NELSON DO K 008.8 Gastroenteritis, Viral 02/29/2012 NELSON DO, ROSANNA K 787.02 Nausea Alone 02/29/2012 NELSON DO, ROSANNA K 787.91 Diarrhea 02/29/2012 MADL PSYCHIATRIC RN, SIMA L 008 .8 Gastroenteritis, Viral 02/29/2012 MADL PSYCHIATRIC RN, SIMA L 787 .02 Nausea Alone 02/29/2012 MADL PSYCHIATRIC RN, SIMA L 787 .91 Diarrhea 02/29/2012 NELSON DO, ROSANNA K 008.8 [...] DO, ROSANNA K 787.91 Diarrhea 02/29/2012 BERNARD PSYCHIATRIC RN, PACHECO A 00 8.8 Gastroenteritis, Viral 02/29/2012 BERNARD PSYCHIATRIC RN, PACHECO A 787.02 Nausea Alone 02/29/2012 BERNARD PSYCHIATRIC RN, PACHECO A 787.91 Diarrhea 02/29/2012 NELSON DO, ROSANNA K 008.8 Gastroenteritis, Viral 02/29/2012 NELSON DO, ROSANNA K 787.02 Nausea Alone 02/29/2012 NELSON DO, ROSANNA K 787.91 Diarrhea 02/29/2012 WHITE DDS, AUSTIN D 00 8.8 Gastroenteritis, Viral 02/29/2012 WHITE DDS, AUSTIN D [...] DO, ROSANNA K 787.91 Diarrhea 02/29/2012 BERNARD PSYCHIATRIC RN, PACHECO A 00 8.8 Gastroenteritis, Viral 02/29/2012 BERNARD PSYCHIATRIC RN, PAHCECO A 787.02 Nausea Alone 02/29/2012 BERNARD PSYCHIATRIC RN, PACHECO A 787.91 Diarrhea 02/29/2012 NELSON DO, ROSANNA K 008.8 Gastroenteritis, Viral 02/29/2012 NELSON DO, ROSANNA K 787.02 Nausea Alone 02/29/2012 NELSON DO, ROSANNA K 787.91 Diarrhea 02/29/2012 KIMBERLY ANDREWSAngela ONIEL R 008.8 Gastroenteritis, Viral 02/29/2012 KIMBERLY ANDREWSN, ONIEL R 787.02 Nausea Alone 02/29/2012 HARRIS PSYCHIATRIC RN, ONIEL R 787.91 Diarrhea 05/07/2012 V73.81 HPV SCREENING 05/07/2012 V74.5 STD SCREEN 05/07/2012 V76.2 CERV ICAL CANCER SCREENING (PAP SMEAR) 05/07/2012 V76.41 SCR EENING FOR MALIGNANT NEOPLASMS OF THE RECTUM 05/07/2012 NASRA RUVALCABA MD V73.8 1 HPV SCREENING 05/07/2012 NASRA RUVALCABA MD V74.5 STD SCREEN 05/07/2012 NASRA RUVALCABA MD V76.2 CERVICAL CANCER SCREENING (PAP SMEAR) 05/07/2012 NASRA RUVALCABA MD V76.4 1 SCREENING FOR MALIGNANT NEOPLASMS OF THE RECTUM 05/07/2012 SAGE NELSON DOA K V73.81 Hpv Screening 05/07/2012 LESLIE JOHNSTON [...] Screening 05/07/2012 V74.5 Std Screen 05/07/2012 V76.2 Cerv ical Cancer Screening (pap Smear) 05/07/2012 V76.41 Scr eening For Malignant Neoplasms Of The Rectum 05/07/2012 ROSANNA NELSON DO V73.81 Hpv Screening 05/07/2012 ROSANNA NELSON DO V74.5 Std Screen 05/07/2012 ROSANNA NELSON DO V76.2 Cervical Cancer Screening (pap Smear) 05/07/2012 ROSANNA NELSON DO V76.41 Screening For Malignant Neoplasms Of The Rectum 05/07/2012 V73.81 Hpv Screening 05/07/2012 V74.5 Std Screen 05/07/2012 V76.2 Cerv ical Cancer Screening (pap Smear) 05/07/2012 V76.41 Scr eening For Malignant Neoplasms Of The Rectum 05/07/2012 V73.81 Hpv Screening 05/07/2012 V74.5 Std Screen 05/07/2012 V76.2 Cerv ical Cancer Screening (pap Smear) 05/07/2012 V76.41 Scr eening For Malignant Neoplasms Of The Rectum 05/07/2012 V73.81 Hpv Screening 05/07/2012 V74.5 Std Screen 05/07/2012 V76.2 Cerv ical Cancer Screening (pap Smear) 05/07/2012 V76.41 Scr eening For Malignant Neoplasms Of The Rectum 05/07/2012 V73.81 Hpv Screening 05/07/2012 V74.5 Std Screen 05/07/2012 V76.2 Cerv ical Cancer Screening (pap Smear) 05/07/2012 V76.41 Scr eening For Malignant Neoplasms Of The Rectum 05/07/2012 V73.81 Hpv Screening 05/07/2012 V74.5 Std Screen 05/07/2012 V76.2 Cerv ical Cancer Screening (pap Smear) 05/07/2012 V76.41 Scr eening For Malignant Neoplasms Of The Rectum 05/07/2012 V73.81 Hpv Screening 05/07/2012 V74.5 Std Screen 05/07/2012 V76.2 Cerv ical Cancer Screening (pap Smear) 05/07/2012 V76.41 Scr eening For Malignant Neoplasms Of The Rectum 05/07/2012 WILY RAMIREZ MD V73.81 Hpv Screening 05/07/2012 WILY RAMIREZ MD V74.5 Std Screen 05/07/2012 WILY RAMIREZ MD V76.2 Cervical Cancer Screening (pap Smear) 05/07/2012 WILY RAMIREZ MD V76.41 Screening For Malignant Neoplasms Of The Rectum 05/07/2012 PACHECO WAGNER APRN A V73.81 Hpv Screening 05/07/2012 AMIRAH WAGNER APRNIDI A V7 4.5 Std Screen 05/07/2012 AMIRAH WAGNER APRNIDI A V7 6.2 Cervical Cancer Screening (pap Smear) 05/07/2012 PACHECO WAGNER APRN A V76.41 Screening For Malignant Neoplasms Of The Rectum 05/07/2012 SAGE NELSON DOA K V73.81 Hpv Screening 05/07/2012 SAGE NELSON DOA K V74.5 Std Screen 05/07/2012 SAGE NELSON DOA K V76.2 Cervical Cancer Screening (pap Smear) 05/07/2012 SAGE NELSON DOA K V76.41 Screening For Malignant Neoplasms Of The Rectum 05/07/2012 WILY RAMIREZ MD V73.81 Hpv Screening 05/07/2012 WILY RAMIREZ MD V74.5 Std Screen 05/07/2012 WILY RAMIREZ MD V76.2 Cervical Cancer Screening (pap Smear) 05/07/2012 WILY RAMIREZ MD V76.41 Screening For Malignant Neoplasms Of The Rectum 05/07/2012 PACHECO WAGNER APRN A V73.81 Hpv Screening 05/07/2012 PACHECO WAGNER APRN A V7 4.5 Std Screen 05/07/2012 AMIRAH WAGNER APRNIDI A V7 6.2 Cervical Cancer Screening (pap Smear) 05/07/2012 PACHECO WAGNER APRN A V76.41 Screening For Malignant Neoplasms Of The Rectum 05/07/2012 CLIFTON CORRIGAN RAFA R V73.81 Hpv Screening 05/07/2012 JASPAL LAZO APRNINA R V74.5 Std Screen 05/07/2012 CLIFTON CORRIGAN RAFA R V76.2 Cervical Cancer Screening (pap Smear) 05/07/2012 CLIFTON CORRIGAN RAFA R V76.41 Screening For Malignant Neoplasms Of The Rectum 05/07/2012 NELSON DO, ROSANNA K V73.81 Hpv Screening 05/07/2012 NELSON DO, ROSANNA K V74.5 Std Screen 05/07/2012 NELSON DO, ROSANNA K V76.2 Cervical Cancer Screening (pap Smear) 05/07/2012 NELSON DO, ROSANNA K V76.41 Screening For Malignant Neoplasms Of The Rectum 05/07/2012 MADL PSYCHIATRIC RN, SIMA L V73 .81 Hpv Screening 05/07/2012 MADL PSYCHIATRIC RN, SIMA L V74 .5 Std Screen 05/07/2012 MADL PSYCHIATRIC RN, SIMA L V76 .2 Cervical Cancer Screening (pap Smear) 05/07/2012 MADL PSYCHIATRIC RN, SIMA L V76 .41 Screening For Malignant Neoplasms Of The Rectum [...] Malignant Neoplasms Of The Rectum 05/07/2012 BERNARD PSYCHIATRIC RN, PACHECO A V73.81 Hpv Screening 05/07/2012 BERNARD PSYCHIATRIC RN, PACHECO A V7 4.5 Std Screen 05/07/2012 BERNARD PSYCHIATRIC RN, PACHECO A V7 6.2 Cervical Cancer Screening (pap Smear) 05/07/2012 BERNARD PSYCHIATRIC RN, PACHECO A V76.41 Screening For Malignant Neoplasms Of The Rectum 05/07/2012 NELSON DO, ROSANNA K V73.81 Hpv Screening 05/07/2012 NELSON DO, ROSANNA K V74.5 Std Screen 05/07/2012 NELSON DO, ROSANNA K V76.2 Cervical Cancer Screening (pap Smear) 05/07/2012 NELSON DO, ROSANNA K V76.41 Screening For Malignant Neoplasms Of The Rectum 05/07/2012 WHITE DDS, AUSTIN D V73.81 Hpv Screening 05/07/2012 WHITE DDS, AUSTIN D V7 4.5 Std Screen 05/07/2012 WHITE DDS, AUSTIN D V7 6.2 Cervical Cancer Screening (pap Smear) 05/07/2012 WHITE [...] Malignant Neoplasms Of The Rectum 05/07/2012 BERNARD PSYCHIATRIC RN, PACHECO A V73.81 Hpv Screening 05/07/2012 BERNARD PSYCHIATRIC RN, PACHECO A V7 4.5 Std Screen 05/07/2012 BERNARD PSYCHIATRIC RN, PACHECO A V7 6.2 Cervical Cancer Screening (pap Smear) 05/07/2012 BERNARD PSYCHIATRIC RN, PACHECO A V76.41 Screening For Malignant Neoplasms Of The Rectum 05/07/2012 NELSON DO, ROSANNA K V73.81 Hpv Screening 05/07/2012 NELSON DO, ROSANNA K V74.5 Std Screen 05/07/2012 SAGE NELSON DOA K V76.2 Cervical Cancer Screening (pap Smear) 05/07/2012 SAGE NELSON DOA K V76.41 Screening For Malignant Neoplasms Of The Rectum 05/07/2012 ONIEL HARRIS APRN R V73.81 Hpv Screening 05/07/2012 CYNTHIA HARRIS APRNIA R V74.5 Std Screen 05/07/2012 ONIEL HARRIS APRN R V76.2 Cervical Cancer Screening (pap Smear) 05/07/2012 CYNTHIA HARRIS APRNIA R V76.41 Screening For Malignant Neoplasms Of The Rectum 05/09/2012 JORDON ESCOBAR, NASRA 786.5 9 ATYPICAL CHEST PAIN 05/09/2012 SAGE NELSON DOA K 786.59 ATYPICAL CHEST PAIN 05/09/2012 NGOC COREAS MD, BARTOLOME A 786.59 ATYPICAL CHEST PAIN 05/09/2012 786.59 ATY PICAL CHEST PAIN 05/09/2012 ROSANNA NELSON DO K 786.59 ATYPICAL CHEST PAIN 05/09/2012 786.59 Aty pical Chest Pain 05/09/2012 786.59 Aty pical Chest Pain 05/09/2012 786.59 Aty pical Chest Pain 05/09/2012 786.59 Aty pical Chest Pain 05/09/2012 786.59 Aty pical Chest Pain 05/09/2012 786.59 Aty pical Chest Pain 05/09/2012 WILY RAMIREZ MD 786.59 Atypical Chest Pain 05/09/2012 PACHECO WAGNER APRN A 786.59 Atypical Chest Pain 05/09/2012 ROSANNA NELSON DO K 786.59 Atypical Chest Pain 05/09/2012 WILY RAMIREZ MD 786.59 Atypical Chest Pain 05/09/2012 PACHECO WAGNER APRN A 786.59 Atypical Chest Pain 05/09/2012 RAFA LAZO APRN 786.59 Atypical Chest Pain 05/09/2012 SAGE NELSON DOA K 786.59 Atypical Chest Pain 05/09/2012 SIMA HODGES APRN 786 .59 Atypical Chest Pain 05/09/2012 LESLIE JOHNSTON ROSANNA K 786.59 Atypical Chest Pain 05/09/2012 SAGE NELSON DOA K 786.59 Atypical Chest Pain 05/09/2012 LESLIE JOHNSTON ROSANNA K 786.59 Atypical Chest Pain 05/09/2012 PACHECO WAGNER APRN A 786.59 Atypical Chest Pain 05/09/2012 NELSON DO, ROSANNA K 786.59 Atypical Chest Pain 05/09/2012 JAKOB DDS, AUSTIN Cisneros 786.59 Atypical Chest Pain 05/09/2012 NELSON DO, [...] 795.03 ABNORMAL PAP - LGSIL 06/07/2012 795.03 ABN ORMAL PAP - LGSIL 06/07/2012 ROSANNA NELSON DO 795.03 ABNORMAL PAP - LGSIL 06/07/2012 795.03 ABN ORMAL PAP - LGSIL 06/07/2012 795.03 ABN ORMAL PAP - LGSIL 06/07/2012 795.03 ABN ORMAL PAP - LGSIL 06/07/2012 795.03 ABN ORMAL PAP - LGSIL 06/07/2012 795.03 ABN ORMAL PAP - LGSIL 06/07/2012 795.03 ABN ORMAL PAP - LGSIL 06/07/2012 JAMES ESCOBAR, WILY 795.03 ABNORMAL PAP - LGSIL 06/07/2012 PACHECO WAGNER APRN A 795.03 ABNORMAL PAP - LGSIL 06/07/2012 ROSANNA NELSON DO K 795.03 ABNORMAL PAP - LGSIL 06/07/2012 JAMES ESCOBAR, WILY 795.03 ABNORMAL PAP - LGSIL 06/07/2012 PACHECO WAGNER APRN A 795.03 ABNORMAL PAP - LGSIL 06/07/2012 RAFA LAZO APRN 795.03 ABNORMAL PAP - LGSIL 06/07/2012 ROSANNA NELSON DO 795.03 ABNORMAL PAP - LGSIL 06/07/2012 SIMA HODGES APRN 795 .03 ABNORMAL PAP - LGSIL 06/07/2012 NELSON DO, ROSANNA K 795.03 ABNORMAL PAP - LGSIL 06/07/2012 NELSON DO, ROSANNA K 795.03 ABNORMAL PAP - LGSIL 06/07/2012 NELSON DO, ROSANNA K 795.03 ABNORMAL PAP - LGSIL 06/07/2012 PACHECO WAGNER APRN A 795.03 ABNORMAL PAP - LGSIL 06/07/2012 NELSON DO, ROSANNA K 795.03 ABNORMAL PAP - LGSIL 06/07/2012 WHITE DDS, AUSTIN Cisneros 795.03 ABNORMAL PAP - LGSIL 06/07/2012 NELSON DO, ROSANNA K 795.03 ABNORMAL PAP - LGSIL 06/07/2012 NELSON DO, ROSANNA K 795.03 ABNORMAL PAP - LGSIL 06/07/2012 NELSON DO, ROSANNA K 795.03 ABNORMAL PAP - LGSIL 06/07/2012 PACHECO WAGNER APRN A 795.03 ABNORMAL PAP - LGSIL 06/07/2012 NLESON DO, ROSANNA K 795.03 ABNORMAL PAP - LGSIL 06/07/2012 ONIEL HARRIS APRN 795.03 ABNORMAL PAP - LGSIL 07/26/2012 599.0 URIN PETE TRACT INFECTION 07/26/2012 719.46 SERAFIN N IN JOINT INVOLVING LOWER LEG 07/26/2012 599.0 URIN PETE TRACT INFECTION 07/26/2012 719.46 SERAFIN N IN JOINT INVOLVING LOWER LEG 07/26/2012 599.0 URIN PETE TRACT INFECTION 07/26/2012 719.46 SERAFIN N IN JOINT INVOLVING LOWER LEG 07/26/2012 599.0 URIN PETE TRACT INFECTION 07/26/2012 719.46 SERAFIN N IN JOINT INVOLVING LOWER LEG 07/26/2012 599.0 URIN PETE TRACT INFECTION 07/26/2012 719.46 SERAFIN N IN JOINT INVOLVING LOWER LEG 07/26/2012 599.0 URIN PETE TRACT INFECTION 07/26/2012 719.46 SERAFIN N IN JOINT INVOLVING LOWER LEG 07/26/2012 WILY RAMIREZ MD 599.0 URINARY TRACT INFECTION 07/26/2012 WILY RAMIREZ MD 719.46 PAIN IN JOINT INVOLVING LOWER LEG 07/26/2012 PACHECO WAGNER APRN 59 9.0 URINARY TRACT INFECTION 07/26/2012 BERNARD PSYCHIATRIC RN, APCHECO A 719.46 PAIN IN JOINT INVOLVING LOWER LEG 07/26/2012 NELSON DO, ROSANNA K 599.0 URINARY TRACT INFECTION 07/26/2012 NELSON DO, ROSANNA K 719.46 PAIN IN JOINT INVOLVING LOWER LEG 07/26/2012 WILY RAMIREZ MD 599.0 URINARY TRACT INFECTION 07/26/2012 WILY RAMIREZ MD 719.46 PAIN IN JOINT INVOLVING LOWER LEG 07/26/2012 AMIRAH WAGNER APRNIDI A 59 9.0 URINARY TRACT INFECTION 07/26/2012 PACHECO WAGNER APRN A 719.46 PAIN IN JOINT INVOLVING LOWER LEG 07/26/2012 CLIFTON PSYCHIATRIC RN, RAFA R 599.0 URINARY TRACT INFECTION 07/26/2012 CLIFTON PSYCHIATRIC RN, RAFA R 719.46 PAIN IN JOINT INVOLVING LOWER LEG 07/26/2012 NELSON DO, ROSANNA K 599.0 URINARY TRACT INFECTION 07/26/2012 NELSON DO, ROSANNA K 719.46 PAIN IN JOINT INVOLVING LOWER LEG 07/26/2012 CARROLL CORRIGAN, SIMA L 599 .0 URINARY TRACT INFECTION 07/26/2012 MADL PSYCHIATRIC RN, SIMA L 719 .46 PAIN IN JOINT INVOLVING LOWER LEG 07/26/2012 [...] IN JOINT INVOLVING LOWER LEG 07/26/2012 BERNARD CORRIGAN, PACHECO A 59 9.0 URINARY TRACT INFECTION 07/26/2012 BERNARD CORRIGAN PACHECO A 719.46 PAIN IN JOINT INVOLVING LOWER LEG 07/26/2012 NELSON DO, ROSANNA K 599.0 URINARY TRACT INFECTION 07/26/2012 NELSON DO, ROSANNA K 719.46 PAIN IN JOINT INVOLVING LOWER LEG 07/26/2012 WHITE DDS, AUSTIN D 59 9.0 URINARY TRACT INFECTION 07/26/2012 WHITE DDS, AUSTIN [...] LOWER LEG 07/26/2012 PACHECO WAGNER APRN A 59 9.0 URINARY TRACT INFECTION 07/26/2012 PACHECO WAGNER APRN A 719.46 PAIN IN JOINT INVOLVING LOWER LEG 07/26/2012 NELSON DO, ROSANNA K 599.0 URINARY TRACT INFECTION 07/26/2012 NELSON DO, ROSANNA K 719.46 PAIN IN JOINT INVOLVING LOWER LEG 07/26/2012 ONIEL HARRIS APRN R 599.0 URINARY TRACT INFECTION 07/26/2012 ONIEL HARRIS APRN R 719.46 PAIN IN JOINT INVOLVING LOWER LEG 08/14/2012 V01.9 EXPO SURE TO HEPATITIS C 08/14/2012 V13.02 PER NORBERTO HISTORY OF URINARY (TRACT) INFECTION 08/14/2012 V01.9 EXPO SURE TO HEPATITIS C 08/14/2012 V13.02 PER NORBERTO HISTORY OF URINARY (TRACT) INFECTION 08/14/2012 V01.9 EXPO SURE TO HEPATITIS C 08/14/2012 V13.02 PER NORBERTO HISTORY OF URINARY (TRACT) INFECTION 08/14/2012 V01.9 EXPO SURE TO HEPATITIS C 08/14/2012 V13.02 PER NORBERTO HISTORY OF URINARY (TRACT) INFECTION 08/14/2012 V01.9 EXPO SURE TO HEPATITIS C 08/14/2012 V13.02 PER NORBERTO HISTORY OF URINARY (TRACT) INFECTION 08/14/2012 WILY RAMIREZ MD V01.9 EXPOSURE TO HEPATITIS C 08/14/2012 WILY RAMIREZ MD V13.02 PERSONAL HISTORY OF URINARY (TRACT) INFECTION 08/14/2012 PACHECO WAGNER APRN V0 1.9 EXPOSURE TO HEPATITIS C 08/14/2012 PACHECO WAGNER APRN V13.02 PERSONAL HISTORY OF URINARY (TRACT) INFECTION 08/14/2012 NELSON DO, ROSANNA K V01.9 EXPOSURE TO HEPATITIS C 08/14/2012 NELSON DO, ROSANNA K V13.02 PERSONAL HISTORY OF URINARY (TRACT) INFECTION 08/14/2012 WILY RAMIREZ MD V01.9 EXPOSURE TO HEPATITIS C 08/14/2012 WILY RAMIREZ MD V13.02 PERSONAL HISTORY OF URINARY (TRACT) INFECTION 08/14/2012 PACHECO WAGNER APRN A V0 1.9 EXPOSURE TO HEPATITIS C 08/14/2012 PACHECO WAGNER APRN A V13.02 PERSONAL HISTORY OF URINARY (TRACT) INFECTION 08/14/2012 CLIFTON CORRIGAN, RAFA R V01.9 EXPOSURE TO HEPATITIS C 08/14/2012 JASPAL LAZO APRNINA R V13.02 PERSONAL HISTORY OF URINARY (TRACT) INFECTION 08/14/2012 NELSON DO, ROSANNA K V01.9 EXPOSURE TO HEPATITIS C 08/14/2012 NELSON DO, ROSANNA K V13.02 PERSONAL HISTORY OF URINARY (TRACT) INFECTION 08/14/2012 CARROLL CORRIGAN SIMA L V01 .9 EXPOSURE TO HEPATITIS C 08/14/2012 CARROLL CORRIGAN, SIMA L V13 .02 PERSONAL HISTORY OF URINARY (TRACT) INFECTION 08/14/2012 [...] HISTORY OF URINARY (TRACT) INFECTION 08/14/2012 BERNARD CORRIGAN, PACHECO A V0 1.9 EXPOSURE TO HEPATITIS C 08/14/2012 BERNARD CORRIGAN, PACHECO A V13.02 PERSONAL HISTORY OF URINARY (TRACT) INFECTION 08/14/2012 NELSON DO, ROSANNA K V01.9 EXPOSURE TO HEPATITIS C 08/14/2012 NELSON DO, ROSANNA K V13.02 PERSONAL HISTORY OF URINARY (TRACT) INFECTION 08/14/2012 JAKOB DDS, AUSTIN D V0 1.9 EXPOSURE TO HEPATITIS C 08/14/2012 WHITE DDSAUSTIN D V13.02 PERSONAL HISTORY OF URINARY (TRACT) [...] (TRACT) INFECTION 08/14/2012 PACHECO WAGNER APRN A V0 1.9 EXPOSURE TO HEPATITIS C 08/14/2012 PACHECO WAGNER APRN A V13.02 PERSONAL HISTORY OF URINARY (TRACT) INFECTION 08/14/2012 NELSON DO, ROSANNA K V01.9 EXPOSURE TO HEPATITIS C 08/14/2012 NELSON DO, ROSANNA K V13.02 PERSONAL HISTORY OF URINARY (TRACT) INFECTION 08/14/2012 ONIEL HARRIS APRN R V01.9 EXPOSURE TO HEPATITIS C 08/14/2012 ONIEL HARRIS APRN R V13.02 PERSONAL HISTORY OF URINARY (TRACT) INFECTION 08/20/2012 692.9 DERM ATITIS 08/20/2012 692.9 DERM ATITIS 08/20/2012 692.9 DERM ATITIS 08/20/2012 692.9 DERM ATITIS 08/20/2012 WILY RAMIREZ MD 692.9 DERMATITIS 08/20/2012 PACHECO WAGNER APRN A 69 2.9 DERMATITIS 08/20/2012 NELSON DO, ROSANNA K 692.9 DERMATITIS 08/20/2012 WILY RAMIREZ MD 692.9 DERMATITIS 08/20/2012 PACHECO WAGNER APRN A 69 2.9 DERMATITIS 08/20/2012 RAFA LAZO APRN 692.9 DERMATITIS 08/20/2012 NELSON DO, ROSANNA K 692.9 DERMATITIS 08/20/2012 SIMA HODGES APRN 692 .9 DERMATITIS 08/20/2012 NELSON DO, ROSANNA K 692.9 DERMATITIS 08/20/2012 NELSON DO, ROSANNA K 692.9 DERMATITIS 08/20/2012 NELSON DO, ROSANNA K 692.9 DERMATITIS 08/20/2012 AMIRAH WAGNER APRNIDI A 69 2.9 DERMATITIS 08/20/2012 NELSON DO, ROSANNA K 692.9 DERMATITIS 08/20/2012 WHITE DDS, AUSTIN D 69 2.9 DERMATITIS 08/20/2012 NELSON DO, ROSANNA K 692.9 DERMATITIS 08/20/2012 NELSON DO, ROSANNA K 692.9 DERMATITIS 08/20/2012 NELSON DO, ROSANNA K 692.9 DERMATITIS 08/20/2012 PACHECO WAGNER APRN A 69 2.9 DERMATITIS 08/20/2012 NELSON DO, ROSANNA K 692.9 DERMATITIS 08/20/2012 ONIEL HARRIS APRN 692.9 DERMATITIS 08/28/2012 112.0 CAND IDIASIS OF MOUTH 08/28/2012 112.0 CAND IDIASIS OF MOUTH 08/28/2012 112.0 CAND IDIASIS OF MOUTH 08/28/2012 WILY RAMIREZ MD 112.0 CANDIDIASIS OF MOUTH 08/28/2012 PACHECO WAGNER APRN A 11 2.0 CANDIDIASIS OF MOUTH 08/28/2012 NELSON DO, ROSANNA K 112.0 CANDIDIASIS OF MOUTH 08/28/2012 WILY RAMIREZ MD 112.0 CANDIDIASIS OF MOUTH 08/28/2012 PACHECO WAGNER APRN A 11 2.0 CANDIDIASIS OF MOUTH 08/28/2012 RAFA LAZO APRN 112.0 CANDIDIASIS OF MOUTH 08/28/2012 NELSON DO, ROSANNA K 112.0 CANDIDIASIS OF MOUTH 08/28/2012 SIMA HODGES APRN 112 .0 CANDIDIASIS OF MOUTH 08/28/2012 NELSON DO, ROSANNA K 112.0 CANDIDIASIS OF MOUTH 08/28/2012 NELSON DO, ROSANNA K 112.0 CANDIDIASIS OF MOUTH 08/28/2012 NELSON DO, ROSANNA K 112.0 CANDIDIASIS OF MOUTH 08/28/2012 PACHECO WAGNER APRN A 11 2.0 CANDIDIASIS OF MOUTH 08/28/2012 NELSON DO, ROSANNA K 112.0 CANDIDIASIS OF MOUTH 08/28/2012 WHITE DDS, AUSTIN D 11 2.0 CANDIDIASIS OF MOUTH 08/28/2012 NELSON DO, ROSANNA K 112.0 CANDIDIASIS OF MOUTH 08/28/2012 NELSON DO, ROSANNA K 112.0 CANDIDIASIS OF MOUTH 08/28/2012 NELSON DO, ROSANNA K 112.0 CANDIDIASIS OF MOUTH 08/28/2012 PACHECO WAGNER APRN A 11 2.0 CANDIDIASIS OF MOUTH 08/28/2012 NELSON DO, ROSANNA K 112.0 CANDIDIASIS OF MOUTH 08/28/2012 ONIEL HARRIS APRN R 112.0 CANDIDIASIS OF MOUTH 09/17/2012 DARIUS ESCOBAR, OBDULIA Christian Ot 719.41 JOINT PAIN-SHLDER 09/17/2012 OBDULIA MCCOY MD Ot 786.52 PAINFUL RESPIRATION 11/12/2012 788.41 URI NARY FREQUENCY 11/12/2012 WILY RAMIREZ MD 788.41 URINARY FREQUENCY 11/12/2012 PACHECO WAGNER APRN A 788.41 URINARY FREQUENCY 11/12/2012 NELSON DO, ROSANNA K 788.41 URINARY FREQUENCY 11/12/2012 WILY RAMIREZ MD 788.41 URINARY FREQUENCY 11/12/2012 PACHECO WAGNER APRN A 788.41 URINARY FREQUENCY 11/12/2012 RAFA LAZO APRN R 788.41 URINARY FREQUENCY 11/12/2012 NELSON DO, ROSANNA K 788.41 URINARY FREQUENCY 11/12/2012 SIMA HODGES APRN 788 .41 URINARY FREQUENCY 11/12/2012 NELSON DO, ROSANNA K 788.41 URINARY FREQUENCY 11/12/2012 NELSON DO, ROSANNA K 788.41 URINARY FREQUENCY 11/12/2012 NELSON DO, ROSANNA K 788.41 URINARY FREQUENCY 11/12/2012 AMIRAH WAGNER APRNIDI A 788.41 URINARY FREQUENCY 11/12/2012 NELSON DO, ROSANNA K 788.41 URINARY FREQUENCY 11/12/2012 JAKOB DDSAUSTIN 788.41 URINARY FREQUENCY 11/12/2012 NELSON DO, ROSANNA K 788.41 URINARY FREQUENCY 11/12/2012 NELSON DO, ROSANNA K 788.41 URINARY FREQUENCY 11/12/2012 NELSON DO, ROSANNA K 788.41 URINARY FREQUENCY 11/12/2012 BERNARD CORRIGAN PACHECO A 788.41 URINARY FREQUENCY 11/12/2012 NELSON DO, ROSANNA K 788.41 URINARY FREQUENCY 11/12/2012 ONIEL HARRIS APRN R 788.41 URINARY FREQUENCY 11/24/2012 JAMES ESCOBAR, WILY 477.0 ALLERGIC RHINITIS DUE TO POLLEN 11/24/2012 BERNARD PSYCHIATRIC RN, PACHECO A 47 7.0 ALLERGIC RHINITIS DUE TO POLLEN 11/24/2012 NELSON DO, ROSANNA K 477.0 ALLERGIC RHINITIS DUE TO POLLEN 11/24/2012 WILY RAMIREZ MD 477.0 ALLERGIC RHINITIS DUE TO POLLEN 11/24/2012 BERNARD PSYCHIATRIC RN, PACHECO A 47 7.0 ALLERGIC RHINITIS DUE TO POLLEN 11/24/2012 CLIFTON PSYCHIATRIC RN, RAFA R 477.0 ALLERGIC RHINITIS DUE TO POLLEN 11/24/2012 NELSON DO, ROSANNA K 477.0 ALLERGIC RHINITIS DUE TO POLLEN 11/24/2012 MADL PSYCHIATRIC RN, SIMA L 477 .0 ALLERGIC RHINITIS DUE TO POLLEN 11/24/2012 NELSON DO, ROSANNA K 477.0 ALLERGIC RHINITIS DUE TO POLLEN 11/24/2012 NELSON DO, ROSANNA K 477.0 ALLERGIC RHINITIS DUE TO POLLEN 11/24/2012 NELSON DO, ROSANNA K 477.0 ALLERGIC RHINITIS DUE TO POLLEN 11/24/2012 BERNARD PSYCHIATRIC RN, PACHECO A 47 7.0 ALLERGIC RHINITIS DUE TO POLLEN 11/24/2012 NELSON DO, ROSANNA K 477.0 ALLERGIC RHINITIS DUE TO POLLEN 11/24/2012 JAKOB DDS, AUSTIN D 47 7.0 ALLERGIC RHINITIS DUE TO POLLEN 11/24/2012 NELSON DO, ROSANNA K 477.0 ALLERGIC RHINITIS DUE TO POLLEN 11/24/2012 NELSON DO, ROSANNA K 477.0 ALLERGIC RHINITIS DUE TO POLLEN 11/24/2012 NELSON DO, ROSANNA K 477.0 ALLERGIC RHINITIS DUE TO POLLEN 11/24/2012 BERNARD PSYCHIATRIC RN, PACHECO A 47 7.0 ALLERGIC RHINITIS DUE TO POLLEN 11/24/2012 NELSON DO, ROSANNA K 477.0 ALLERGIC RHINITIS DUE TO POLLEN 11/24/2012 HARRIS PSYCHIATRIC RN, ONIEL R 477.0 ALLERGIC RHINITIS DUE TO POLLEN 04/18/2013 BERNARD PSYCHIATRIC RN, PACHECO A V7 4.5 STD SCREEN 04/18/2013 CLIFTON PSYCHIATRIC RN, RAFA R V74.5 STD SCREEN 04/18/2013 NELSON DO, ROSANNA K V74.5 STD SCREEN 04/18/2013 MADL PSYCHIATRIC RN, SIMA L V74 .5 STD SCREEN 04/18/2013 NELSON DO, ROSANNA K V74.5 STD SCREEN 04/18/2013 NELSON DO, ROSANNA K V74.5 STD SCREEN 04/18/2013 NELSON DO, ROSANNA K V74.5 STD SCREEN 04/18/2013 BERNARD PSYCHIATRIC RN, PACHECO A V7 4.5 STD SCREEN 04/18/2013 NELSON DO, ROSANNA K V74.5 STD SCREEN 04/18/2013 WHITE DDS, AUSTIN D V7 4.5 STD SCREEN 04/18/2013 NELSON DO, ROSANNA K V74.5 STD SCREEN 04/18/2013 NELSON DO, ROSANNA K V74.5 STD SCREEN 04/18/2013 NELSON DO, ROSANNA K V74.5 STD SCREEN 04/18/2013 BERNARD PSYCHIATRIC RN, PACHECO A V7 4.5 STD SCREEN 04/18/2013 NELSON DO, ROSANNA K V74.5 STD SCREEN 04/18/2013 CYNTHIA HARRIS APRNIA R V74.5 STD SCREEN 07/11/2013 CLIFTON PSYCHIATRIC RN, RAFA R 461.9 SINUSITIS ACUTE 07/11/2013 CLIFTON ANDREWSN, RAFA R 780.4 DIZZINESS AND GIDDINESS 07/11/2013 NELSON DO, ROSANNA K 461.9 SINUSITIS ACUTE 07/11/2013 NELSON DO, ROSANNA K 780.4 DIZZINESS AND GIDDINESS 07/11/2013 MADL PSYCHIATRIC RN, SIMA L 461 .9 SINUSITIS ACUTE 07/11/2013 MADL PSYCHIATRIC RN, SIMA L 780 .4 DIZZINESS AND GIDDINESS 07/11/2013 NELSON DO, ROSANNA K 461.9 SINUSITIS ACUTE 07/11/2013 NELSON DO, ROSANNA K 780.4 DIZZINESS AND GIDDINESS 07/11/2013 NELSON DO, ROSANNA K 461.9 SINUSITIS ACUTE 07/11/2013 NELSON DO, ROSANNA K 780.4 DIZZINESS AND GIDDINESS 07/11/2013 NELSON DO, ROSANNA K 461.9 SINUSITIS ACUTE 07/11/2013 NELSON DO, ROSANNA K 780.4 DIZZINESS AND GIDDINESS 07/11/2013 BERNARD PSYCHIATRIC RN, PACHECO A 46 1.9 SINUSITIS ACUTE 07/11/2013 BERNARD PSYCHIATRIC RN, PACHECO A 78 0.4 DIZZINESS AND GIDDINESS 07/11/2013 NELSON DO, ROSANNA K 461.9 SINUSITIS ACUTE 07/11/2013 NELSON DO, ROSANNA K 780.4 DIZZINESS AND GIDDINESS 07/11/2013 WHITE DDS, AUSTIN D 46 1.9 SINUSITIS ACUTE 07/11/2013 WHITE DDS, AUSTIN D 78 0.4 DIZZINESS AND GIDDINESS 07/11/2013 NELSON DO, ROSANNA K 461.9 SINUSITIS ACUTE 07/11/2013 NELSON DO, ROSANNA K 780.4 DIZZINESS AND GIDDINESS 07/11/2013 NELSON DO, ROSANNA K 461.9 SINUSITIS ACUTE 07/11/2013 NELSON DO, ROSANNA K 780.4 DIZZINESS AND GIDDINESS 07/11/2013 NELSON DO, ROSANNA K 461.9 SINUSITIS ACUTE 07/11/2013 NELSON DO, ROSANNA K 780.4 DIZZINESS AND GIDDINESS 07/11/2013 BERNARD PSYCHIATRIC RN, PACHECO A 46 1.9 SINUSITIS ACUTE 07/11/2013 BERNARD PSYCHIATRIC RN, PACHECO A 78 0.4 DIZZINESS AND GIDDINESS 07/11/2013 NELSON DO, ROSANNA K 461.9 SINUSITIS ACUTE 07/11/2013 NELSON DO, ROSANNA K 780.4 DIZZINESS AND GIDDINESS 07/11/2013 HARRIS PSYCHIATRIC RN, ONIEL R 461.9 SINUSITIS ACUTE 07/11/2013 HARRIS PSYCHIATRIC RN, ONIEL R 780.4 DIZZINESS AND GIDDINESS 08/12/2013 NELSON DO, ROSANNA K V65.3 DIETARY SURVEILLANCE AND COUNSELING 08/12/2013 SIMA HODGES APRN V65 .3 DIETARY SURVEILLANCE AND COUNSELING 08/12/2013 NELSON DO, ROSANNA K V65.3 DIETARY SURVEILLANCE AND COUNSELING 08/12/2013 NELSON DO, ROSANNA K V65.3 DIETARY SURVEILLANCE AND COUNSELING 08/12/2013 NELSON DO, ROSANNA K V65.3 DIETARY SURVEILLANCE AND COUNSELING 08/12/2013 BERNARD PSYCHIATRIC RN, PACHECO A V6 5.3 DIETARY SURVEILLANCE AND COUNSELING 08/12/2013 NELSON DO, ROSANNA K V65.3 DIETARY SURVEILLANCE AND COUNSELING 08/12/2013 WHITE DDS, AUSTIN D V6 5.3 DIETARY SURVEILLANCE AND COUNSELING 08/12/2013 NELSON DO, ROSANNA K V65.3 DIETARY SURVEILLANCE AND COUNSELING 08/12/2013 NELSON DO, ROSANNA K V65.3 DIETARY SURVEILLANCE AND COUNSELING 08/12/2013 NELSON DO, ROSANNA K V65.3 DIETARY SURVEILLANCE AND COUNSELING 08/12/2013 BERNARD CORRIGAN PACHECO A V6 5.3 DIETARY SURVEILLANCE AND COUNSELING 08/12/2013 NELSON DO, ROSANNA K V65.3 DIETARY SURVEILLANCE AND COUNSELING 08/12/2013 ONIEL HARRIS APRN V65.3 DIETARY SURVEILLANCE AND COUNSELING 08/16/2013 CARROLL CORRIGANSIMA Finn 381 .01 ACUTE SEROUS OTITIS MEDIA 08/16/2013 NELSON DO, ROSANNA K 381.01 ACUTE SEROUS OTITIS MEDIA 08/16/2013 NELSON DO, ROSANNA K 381.01 ACUTE SEROUS OTITIS MEDIA 08/16/2013 NELSON DO, ROSANNA K 381.01 ACUTE SEROUS OTITIS MEDIA 08/16/2013 BERNARD CORRIGAN PACHECO A 381.01 ACUTE SEROUS OTITIS MEDIA 08/16/2013 NELSON DO, ROASNNA K 381.01 ACUTE SEROUS OTITIS MEDIA 08/16/2013 WHITE DDS, AUSTIN D 381.01 ACUTE SEROUS OTITIS MEDIA 08/16/2013 NELSON DO, ROSANNA K 381.01 ACUTE SEROUS OTITIS MEDIA 08/16/2013 NELSON DO, ROSANNA K 381.01 ACUTE SEROUS OTITIS MEDIA 08/16/2013 NELSON DO, ROSANNA K 381.01 ACUTE SEROUS OTITIS MEDIA 08/16/2013 BERNARD CORRIGAN PACHECO A 381.01 ACUTE SEROUS OTITIS MEDIA 08/16/2013 NELSON DO, ROSANNA K 381.01 ACUTE SEROUS OTITIS MEDIA 08/16/2013 ONIEL HARRIS APRN R 381.01 ACUTE SEROUS OTITIS MEDIA 08/26/2013 NELSON DO, ROSANNA K 112.0 CANDIDIASIS OF MOUTH 08/26/2013 NELSON DO, ROSANNA K 112.1 CANDIDIASIS OF VULVA AND VAGINA 08/26/2013 NELSON DO, ROSANNA K 112.0 CANDIDIASIS OF MOUTH 08/26/2013 NELSON DO, ROSANNA K 112.1 CANDIDIASIS OF VULVA AND VAGINA 08/26/2013 BERNARD CORRIGAN PACHECO A 11 2.0 CANDIDIASIS OF MOUTH 08/26/2013 BERNARD CORRIGAN PACHECO A 11 2.1 CANDIDIASIS OF VULVA AND VAGINA 08/26/2013 NELSON DO, ROSANNA K 112.0 CANDIDIASIS OF MOUTH 08/26/2013 NELSON DO, ROSANNA K 112.1 CANDIDIASIS OF VULVA AND VAGINA 08/26/2013 WHITE DDS, AUSTIN D 11 2.0 CANDIDIASIS OF MOUTH 08/26/2013 WHITE DDS, AUSTIN D 11 2.1 CANDIDIASIS OF VULVA AND VAGINA 08/26/2013 NELSON [...] CANDIDIASIS OF VULVA AND VAGINA 08/26/2013 BERNARD PSYCHIATRIC RN, PACHECO A 11 2.0 CANDIDIASIS OF MOUTH 08/26/2013 BERNARD PSYCHIATRIC RN, PACHECO A 11 2.1 CANDIDIASIS OF VULVA AND VAGINA 08/26/2013 NELSON DO, ROSANNA K 112.0 CANDIDIASIS OF MOUTH 08/26/2013 NELSON DO, ROSANNA K 112.1 CANDIDIASIS OF VULVA AND VAGINA 08/26/2013 KIMBERLY PSYCHIATRIC RN, ONIEL R 112.0 CANDIDIASIS OF MOUTH 08/26/2013 KIMBERLY ANDREWSN, ONIEL R 112.1 CANDIDIASIS OF VULVA AND VAGINA 09/30/2013 NELSON DO, ROSANNA K 564.00 CONSTIPATION 09/30/2013 NELSON DO, ROSANNA K 623.5 LEUKORRHEA NOT SPECIFIED INFECTIVE 09/30/2013 NELSON DO, ROSANNA K 789.00 ABDOMINAL PAIN UNSPECIFIED SITE 09/30/2013 NELSON DO, ROSANNA K V65.45 STD COUNSELING 09/30/2013 NELSON DO, ROSANNA K V74.5 STD SCREEN 09/30/2013 NELSON DO ROSANNA K V76.10 BREAST CANCER SCREENING 09/30/2013 BERNARD PSYCHIATRIC RN, PACHECO A 564.00 CONSTIPATION 09/30/2013 BERNARD PSYCHIATRIC RN PACHECO A 62 3.5 LEUKORRHEA NOT SPECIFIED INFECTIVE 09/30/2013 BERNARD PSYCHIATRIC RN, PACHECO A 789.00 ABDOMINAL PAIN UNSPECIFIED SITE 09/30/2013 BERNARD PSYCHIATRIC RN PACHECO A V65.45 STD COUNSELING 09/30/2013 BERNARD PSYCHIATRIC RN PACHECO A V7 4.5 STD SCREEN 09/30/2013 BERNARD PSYCHIATRIC RN PACHECO A V76.10 BREAST CANCER SCREENING 09/30/2013 [...] 564.00 CONSTIPATION 09/30/2013 WHITE DDS, AUSTIN D 62 3.5 LEUKORRHEA NOT SPECIFIED INFECTIVE 09/30/2013 WHITE DDS, AUSTIN D 789.00 ABDOMINAL PAIN UNSPECIFIED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 SPECIALIST Ot M54 .2 CERVICALGIA 05/23/2017 MADL, SIMA L PHOTO LAB SPECIALIST Ot M54 .5 LOW BACK PAIN 05/24/2017 MADL, SIMA L PHOTO LAB SPECIALIST Ot M54 .2 CERVICALGIA 05/24/2017 MADL, SIMA L PHOTO LAB SPECIALIST Ot M54 .5 LOW BACK PAIN 06/29/2017 MADL, SIMA L PHOTO LAB SPECIALIST Ot 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 11/28/2017 RONALD VINOD L PHOTO LAB SPECIALIST Ot Z12.31 ENCNTR SCREEN MAMMOGRAM FOR MALIGNANT NE 11/28/2017 Ot R31.9 JESSICA TURIA, UNSPECIFIED 11/28/2017 KIARRA ZAMORA Ot E78.00 PURE HYPERCHOLESTEROLEMIA, UNSPECIFIED 11/28/2017 BERNKIARRA VAZQUEZ Ot I10 ESSENTIAL (PRIMARY) HYPERTENSION 11/28/2017 KIARRA ZAMORA Ot L29.9 PRURITUS, UNSPECIFIED 11/28/2017 KIARRA ZAMORA Ot T50.8X5A ADVERSE EFFECT OF DIAGNOSTIC AGENTS, INI 11/28/2017 KIARRA ZAMORA Ot Z79.52 CARE HOME (CURRENT) USE OF SYSTEMIC STER 11/28/2017 KIARRA ZAMORA Ot Z88.2 ALLERGY STATUS TO SULFONAMIDES STATUS 11/28/2017 KIARRA ZAMORA Ot Z88.8 ALLERGY STATUS TO OTH DRUG/MEDS/BIOL SUB 11/28/2017 KIARRA ZAMORA Ot Z90.89 ACQUIRED ABSENCE OF OTHER ORGANS 11/28/2017 KIARRA ZAMORA Ot Z98.51 TUBAL LIGATION STATUS 02/21/2018 SHIELA JULIEN PHOTO LAB SPECIALIST Ot S56.511A STRAIN OF EXTN MUSC/FASC/TEND AT FORARM 06/07/2018 SHIELA JULIEN Ot S56.511A STRAIN OF EXTN MUSC/FASC/TEND AT FORARM 06/07/2018 DERRICK DO, RICARDO K Ot E78.00 PURE HYPERCHOLESTEROLEMIA, UNSPECIFIED 06/07/2018 DERRICK DO, RICARDO K Ot I10 ESSENTIAL (PRIMARY) HYPERTENSION 06/07/2018 DERRICK DO, RICARDO K Ot R07.89 OTHER CHEST PAIN 06/07/2018 DERRICK DO, RICARDO K Ot R07.9 CHEST PAIN, UNSPECIFIED 06/07/2018 DERRICK DO, RICARDO K Ot Z79.52 SENIOR APPLICATIONS ARCHITECT (CURRENT) USE OF SYSTEMIC STER 06/07/2018 DERRICK DO, RICARDO K Ot Z88.2 ALLERGY STATUS TO SULFONAMIDES STATUS 06/07/2018 DERRICK DO, RICARDO K Ot Z88.8 ALLERGY STATUS TO OTH DRUG/MEDS/BIOL SUB 06/07/2018 DERRICK DO, RICARDO K Ot Z90.89 ACQUIRED ABSENCE OF OTHER ORGANS 06/07/2018 DERRICK DO, RICARDO K Ot Z98.51 TUBAL LIGATION STATUS 06/11/2018 DERRICK DO, RICARDO K Ot E78.00 PURE HYPERCHOLESTEROLEMIA, UNSPECIFIED 06/11/2018 DERRICK DO, RICARDO K Ot I10 ESSENTIAL (PRIMARY) HYPERTENSION 06/11/2018 DERRICK DO, RICARDO K Ot R07.89 OTHER CHEST PAIN 06/11/2018 DERRICK DO, RICARDO K Ot R07.9 CHEST PAIN, UNSPECIFIED 06/11/2018 DERRICK DO, RICARDO K Ot Z79.52 SENIOR APPLICATIONS ARCHITECT (CURRENT) USE OF SYSTEMIC STER 06/11/2018 DERRICK DO, RICARDO K Ot Z88.2 ALLERGY STATUS TO SULFONAMIDES STATUS 06/11/2018 DERRICK DO, RICARDO K Ot Z88.8 ALLERGY STATUS TO OTH DRUG/MEDS/BIOL SUB 06/11/2018 DERRICK DO, RICARDO K Ot Z90.89 ACQUIRED ABSENCE OF OTHER ORGANS 06/11/2018 DERRICK DO, RICARDO K Ot Z98.51 TUBAL LIGATION STATUS 09/26/2018 SHIELA JULIEN Ot S56.511A STRAIN OF EXTN MUSC/FASC/TEND AT FORARM 10/02/2018 BETI STAUFFER APRN Ot Z12.31 ENCNTR SCREEN MAMMOGRAM FOR MALIGNANT NE 03/13/2019 SHIELA JULIEN Ot S56.511A STRAIN OF EXTN MUSC/FASC/TEND AT FORARM 03/13/2019 BETI STAUFFER APRN Ot Z12.31 ENCNTR SCREEN MAMMOGRAM FOR MALIGNANT NE 10/15/2019 SHIELA JULIEN Ot S56.511A STRAIN OF EXTN MUSC/FASC/TEND AT FORARM 10/15/2019 BETI STAUFFER APRN Ot Z12.31 ENCNTR SCREEN MAMMOGRAM FOR MALIGNANT NE 10/22/2019 NASRA KHAN Ot Z12.31 ENCNTR SCREEN MAMMOGRAM FOR MALIGNANT NE 10/23/2019 NASRA KHAN Ot Z12.31 ENCNTR SCREEN MAMMOGRAM FOR MALIGNANT NE Procedures Code [place] [address] UA W / CULTURE IF INDICATED 03/23/2012 71053 CULT URE URINE 03/24/2012 91316 HEMOCCULT 05/07/2012 17327 UA W / CULTURE IF INDICATED 05/07/2012 92021 TRIC [facility]AS (IN-HOUSE) 05/07/2012 65979 MAMM OGRAM, SCREENING 05/08/2012 87280 CULT URE UROGENITAL 05/08/2012 05224 GC/C HLAM PROBE (STATE) 05/08/2012 44855 PAP SMEAR 05/08/2012 Q0091 PAP SMEAR OBTAIN SMEAR 05/08/2012 88612 ROUT INE VENIPUNCTURE 05/10/2012 93242 A1C (IN-HOUSE) 05/10/2012 95365 CBC 05/10/2012 46535 CMP 05/10/2012 09422 LIPI D PANEL 05/10/2012 [id number] GF R CALC (RESULT ONLY) 05/10/2012 47482 SYLVIA MIN D 25-HYDROXY (D2,D3, TOTAL) 05/11/2012 02560 TSH 05/11/2012 91909 STRE SS ECHO 05/15/2012 37716 COLP W/ ECC 06/07/2012 15567 URIN E TEST (IN- HOUSE) 06/07/2012 86213 CULT URE UROGENITAL 07/12/2012 42303 UA W / CULTURE IF INDICATED 07/26/2012 97605 JOIN T INJECTION- LARGE JOINT (SPECIFY MEDCIN DESCRIPTION) 07/26 51635 XRAY KNEE RIGHT 1 OR 2 VIEWS 07/26/2012 52782 CULT URE URINE 07/26/2012 89087 ROUT INE VENIPUNCTURE 08/14/2012 72100 UA W / CULTURE IF INDICATED 08/14/2012 15052 HIV ANTIBODIES (RML) 08/15/2012 65309 SYPH ILLIS-[facility] 08/16/2012 14685 HEP C ANTIBODY ([facility]) 08/16/2012 72972 CULT URE URINE 08/17/2012 25001 UA W / CULTURE IF INDICATED 08/28/2012 18393 CULT URE URINE 08/28/2012 71433 UA W / CULTURE IF INDICATED 09/05/2012 21162 PAP SMEAR 01/08/2013 Q0091 PAP SMEAR OBTAIN SMEAR 01/08/2013 38346 CMP 01/17/2013 23734 LIPI D PANEL 01/17/2013 79211 UA W / CULTURE IF INDICATED 01/17/2013 59114 GC/C HLAM PROBE ([facility]) 04/18/2013 64710 TRIC HOMONAS (IN-HOUSE) 04/18/2013 31986 CULT URE UROGENITAL 04/21/2013 18592 XRAY SHOULDER RIGHT COMP 2 VIEWS 08/19/2013 56295 ROUT INE VENIPUNCTURE 09/30/2013 94625 JOIN T INJECTION- LARGE JOINT (SPECIFY MEDCIN DESCRIPTION) 09/30 48594 SYPH ILLIS-[facility] 09/30/2013 35727 HIV ([facility]) 09/30/2013 3405673 GF R CALC (RESULT ONLY) 09/30/2013 96725 CMP 09/30/2013 22553 LIPI D PANEL 09/30/2013 35424 GC/C HLAM PROBE ([facility]) 10/02/2013 13734 TRIC HOMONAS (IN-HOUSE) 10/02/2013 06239 CULT URE UROGENITAL 10/03/2013 13839 ROUT INE VENIPUNCTURE 01/08/2014 46613 LIPI D PANEL 01/08/2014 2000F BLOO D PRESSURE CHECK 01/09/20141999F BLOO D PRESSURE CHECK 01/10/20141999F BLOO D PRESSURE CHECK 01/14/20141999F BLOO D PRESSURE CHECK 02/12/2014 67663 Arth rocentesis, aspiration and/or injection, major joint or bursa (eg, shoulder, hip, knee, subacromial bursa); without ultrasound guidance 02/24/2016 01894 Radi ologic examination, shoulder; complete, minimum of 2 views.. 02/24/2016 46423 Offi ce or other outpatient visit for the evaluation and management of a new patient, which requires these 3 orta components: A detailed history; A detailed examination; Medical decision gonzalez erickson [facility] 02/24/2016 50835 Sven ection of venous blood by venipuncture 01/13/2017 20877 Immu noassay for analyte other than infectious agent antibody or infectious agent antigen; quantitative, not otherwise specified.. 01/13/2017 16868 Jac rgen specific IgE; quantitative or semiquantitative, each allergen.. 01/13/2017 04659 Comp lement; antigen, each component 01/13/2017 65052 Comp lement; functional activity, each component 7 26962 Perc utaneous tests (scratch, puncture, prick) with allergenic extracts, immediate type reaction, including test interpretation and report, specify number of tests 01/13/2017 Results Test Result Range Complete urinalysis with reflex to cultu re - 02/04/16 11:52 Urine color determination YELLOW NRG Urine clarity determination SLIGHTLY CLOUDY NRG Urine pH measurement by test strip 6 5-9 Specific gravity of urine by test strip 1.020 1.016-1.022 Urine protein assay by test strip, semi-quantitative 1+ NEGATIVE Urine glucose detection by automated test strip NE GATIVE NEGATIVE Erythrocytes detection in urine sediment by light micr oscopy 1+ NEGATIVE Urine ketones detection by automated test strip NE GATIVE NEGATIVE Urine nitrite detection by test strip NEGATIVE NEGATIVE Urine total bilirubin detection by test strip NEGA TIVE NEGATIVE Urine urobilinogen measurement by automated test strip (mass/volume) NORMAL NORMAL Urine leukocyte esterase detection by dipstick 3+ NEGATIVE Automated urine sediment erythrocyte cou nt by microscopy (number/high power field) NONE NRG Automated urine sediment leukocyte count by microscopy (number/high power field) [HPF] NRG Bacteria detection in urine sediment by light microsco py FEW NRG Squamous epithelial cells detection in u rine sediment by light microscopy 10-25 NRG Crystals detection in urine sediment by light microsco py NONE NRG Casts detection in urine sediment by light microscopy NONE NRG Mucus detection in urine sediment by light microscopy NEGATIVE NRG Complete urinalysis with reflex to culture YES NRG Bacterial urine culture - 02/04/16 11:52 Bacterial urine culture [id number] NRG COLONY COUNT >100,000/ML NRG FREE TEXT ENTRY 3 MIXED GRAM POSITIVE BRADLEY <10,00 0/ML NR Urine Culture, Routine - 02/17/16 10:40 Urine Culture, Routine Note Comp. Metabolic Panel (14) - 05/03/16 15 :23 Glucose, Serum 89 mg/dL 65-99 BUN 11 mg/dL 6-24 Creatinine, Serum 0.69 mg/dL 0.57-1.00 eGFR If NonAfricn Am 96 mL/min/1.73 >59 eGFR If Africn Am 110 mL/min/1.73 >5 9 BUN/Creatinine Ratio 16 9-23 Sodium, Serum 142 [...] 0.450-4.500 Serum or plasma complement C1 esterase i nhibitor measurement (mass/volume) - 06/06/16 11:03 Complement C1 esterase inhibitor measurement 111 % 31-67 Complement C4 [mass/volume] in serum or plasma - 06/06/16 11:03 Complement C4 [mass/volume] in serum or plasma 51 % 15-59 Functional complement C1 esterase inhibi tor measurement - 06/06/16 11:03 C1 esterase inhibitor functional 107 % >=40 Complete blood count (CBC) with automate d white blood cell (WBC) differential - 06/18/16 11:21 Blood leukocytes automated count (number/volume) 4.7 10*3/uL 4.3-11.0 Blood erythrocytes automated count (number/volume) 5.13 10*6/uL 4.35-5.85 Venous blood hemoglobin measurement (mass/volume) 14.3 g/dL 11.5-16.0 Blood hematocrit (volume fraction) 43 % 35-52 Automated erythrocyte mean corpuscular volume 84 [ foz_us] 80-99 Automated erythrocyte mean corpuscular h emoglobin (mass per erythrocyte) 28 pg 25-34 Automated erythrocyte mean corpuscular h emoglobin concentration measurement (mass/volume) 33 g/dL 32-36 Automated erythrocyte distribution width ratio 14. 0 % 10.0- 14.5 Automated blood platelet count (count/volume) 300 10*3/uL [...] 10*3 1.0-4.0 Blood monocytes automated count (number/volume) 0. 4 10*3 0.0-1.0 Automated eosinophil count 0.1 10*3/uL 0 .0-0.3 Automated blood basophil count (count/volume) 0.0 10*3/uL 0.0-0.1 Comprehensive metabolic panel - 06/18/16 11:21 Serum or plasma sodium measurement (moles/volume) 140 mmol/L 135-145 Serum or plasma potassium measurement (moles/volume) 3.8 mmol/L 3.6-5.0 Serum or plasma chloride measurement (moles/volume) 103 mmol/L 98-107 Carbon dioxide 25 mmol/L 21-32 Serum or plasma anion gap determination (moles/volume) 12 mmol/L 5-14 Serum or plasma urea nitrogen measurement (mass/volume ) 9 mg/dL 7-18 Serum or plasma creatinine measurement (mass/volume) 0.77 mg/dL 0.60-1.30 Serum or plasma urea nitrogen/creatinine mass ratio 12 NRG Serum or plasma creatinine measurement w ith calculation of estimated glomerular filtration rate > NRG Serum or plasma glucose measurement (mass/volume) 113 mg/dL 70-105 Serum or plasma calcium measurement (mass/volume) 10.3 mg/dL 8.5-10.1 Serum or plasma total bilirubin measurement (mass/volu me) 0.4 mg/dL 0.1-1.0 Serum or plasma alkaline phosphatase mikey surement (enzymatic activity/volume) 110 U/L 40-136 Serum or plasma aspartate aminotransfera se measurement (enzymatic activity/volume) 18 U/L 5-34 Serum or plasma alanine aminotransferase measurement (enzymatic activity/volume) 17 U/L 0-55 Serum or plasma protein measurement (mass/volume) 7.9 g/dL 6.4-8.2 Serum or plasma albumin measurement (mass/volume) 4.7 g/dL 3.2-4.5 Complete urinalysis with reflex to cultu re - 06/18/16 11:28 Urine color determination YELLOW NRG Urine clarity determination CLEAR NR G Urine pH measurement by test strip 7 5-9 Specific gravity of urine by test strip 1.010 1.016-1.022 Urine protein assay by test strip, semi-quantitative NEGATIVE NEGATIVE Urine glucose detection by automated test strip NE GATIVE NEGATIVE Erythrocytes detection in urine sediment by light micr oscopy NEGATIVE NEGATIVE Urine ketones detection by automated test strip NE GATIVE NEGATIVE Urine nitrite detection by test strip NEGATIVE NEGATIVE Urine total bilirubin detection by test strip NEGA TIVE NEGATIVE Urine urobilinogen measurement by automated test strip (mass/volume) NORMAL NORMAL Urine leukocyte esterase detection by dipstick 1+ NEGATIVE Automated urine sediment erythrocyte cou nt by microscopy (number/high power field) NONE NRG Automated urine sediment leukocyte count by microscopy (number/high power field) RARE NRG Bacteria detection in urine sediment by light microsco py NEGATIVE NRG Squamous epithelial cells detection in u rine sediment by light microscopy RARE NRG Crystals detection in urine sediment by light microsco py NONE NRG Casts detection in urine sediment by light microscopy NONE NRG Mucus detection in urine sediment by light microscopy NEGATIVE NRG Complete urinalysis with reflex to culture NO NRG Pap Lb, HPV-hr - 08/16/16 11:13 HPV, high-risk Negative Negative DIAGNOSIS: Comment Specimen adequacy: Comment Clinician provided ICD10: Comment Performed by: Comment . . Note: Comment Genital Culture, Routine - 08/16/16 11:1 3 Genital Culture, Routine Note Comp. Metabolic Panel (14) - 11/22/16 11 :22 Glucose, Serum 98 mg/dL 65-99 BUN 8 mg/dL 6-24 Creatinine, Serum 0.69 mg/dL 0.57-1.00 eGFR If NonAfricn Am 96 mL/min/1.73 >59 eGFR If Africn Am 110 mL/min/1.73 >5 9 BUN/Creatinine Ratio 12 9-23 Sodium, Serum 142 [...] 22 C1 Esterase Inhibitor Ag - 01/13/17 14:3 9 C1 Esterase Inhibitor Ag 49 mg/dL 19 - 37 C1 Esterase Inhib, Functional - 01/13/17 14:39 C1 Esterase Inhib, Functional >90 %of norm [place] IgE - 01/13/17 14:39 [place] Class Negative NA [place] IgE <0.05 IU/mL <0.05 Class Interpretation Guide IU/mL NA Shepherd IgE - 01/13/17 14:39 Shepherd IgE <0.05 IU/mL <0.05 Shepherd IgE Class Negative NA [place] Nut IgE - 01/13/17 14:39 [place] Nut Class Negative NA [place] Nut IgE <0.05 IU/mL <0.05 [place] Nut IgE - 01/13/17 14:39 [place] Nut Class Negative NA [place] Nut IgE <0.05 IU/mL <0.05 Sesame Seed IgE - 01/13/17 14:39 [place]es[place] Seed Class Negative NA [place] Seed IgE <0.05 IU/mL <0.05 Pecan IgE - 01/13/17 14:39 Pecan IgE <0.05 IU/mL <0.05 Pecan IgE Class Negative NA [place] Food IgE - 01/13/17 14:39 [place] Food Class Negative NA [place] IgE <0.05 IU/mL <0.05 [place] Nut IgE - 01/13/17 14:39 [place] Nut IgE <0.35 kU/L CULTURE, URINE - 05/03/17 10:10 CULTURE, URINE, ROUTINE SEE NOTE NR CMP - 06/01/17 10:14 GLUCOSE 117 mg/dL 65-99 UREA NITROGEN (BUN) 12 mg/dL 7-25 CREATININE 0.62 mg/dL 0.50-0.99 eGFR NON-AFR. KAZAKH 98 mL/min/1.73m2 > OR = 60 eGFR 114 mL/min/1.73m2 > OR = 60 BUN/CREATININE RATIO NOT APPLICABLE (calc) 6-22 SODIUM 139 mmol/L 135-146 POTASSIUM 4.0 mmol/L 3.5-5.3 CHLORIDE 106 mmol/L 98-110 CARBON DIOXIDE 28 mmol/L 20-31 CALCIUM 9.7 mg/dL 8.6-10.4 PROTEIN, TOTAL 6.7 g/dL 6.1-8.1 ALBUMIN 4.2 g/dL 3.6-5.1 GLOBULIN 2.5 g/dL (calc) 1.9-3.7 ALBUMIN/GLOBULIN RATIO 1.7 (calc) 1.0-2. 5 BILIRUBIN, TOTAL 0.5 mg/dL 0.2-1.2 ALKALINE PHOSPHATASE 96 U/L 33-130 AST 14 U/L 10-35 ALT 11 U/L 6-29 CULTURE, URINE - 06/14/17 14:01 CULTURE, URINE, ROUTINE SEE NOTE [facility] A1C - 09/01/17 13:08 HEMOGLOBIN A1c 6.1 % of total Hgb <5.7 CULTURE, URINE - 10/03/17 11:10 CULTURE, URINE, ROUTINE SEE NOTE [facility] - 11/27/17 12:36 GLUCOSE 96 mg/dL 65-99 UREA NITROGEN (BUN) 14 mg/dL 7-25 CREATININE 0.70 mg/dL 0.50-0.99 eGFR NON-AFR. KAZAKH 94 mL/min/1.73m2 > OR = 60 eGFR 109 mL/min/1.73m2 > OR = 60 BUN/CREATININE RATIO NOT APPLICABLE (calc) 6-22 SODIUM 141 mmol/L 135-146 POTASSIUM 3.9 mmol/L 3.5-5.3 CHLORIDE 103 mmol/L 98-110 CARBON DIOXIDE 30 mmol/L 20-32 CALCIUM 10.1 mg/dL 8.6-10.4 PROTEIN, TOTAL 6.9 g/dL 6.1-8.1 ALBUMIN 4.6 g/dL 3.6-5.1 GLOBULIN 2.3 g/dL (calc) 1.9-3.7 ALBUMIN/GLOBULIN RATIO 2.0 (calc) 1.0-2. 5 BILIRUBIN, TOTAL 0.4 mg/dL 0.2-1.2 ALKALINE PHOSPHATASE 100 U/L 33-130 AST 15 U/L 10-35 ALT 14 U/L 6-29 LIPID PANEL - 12/13/17 10:10 CHOLESTEROL, TOTAL 198 mg/dL <200 HDL CHOLESTEROL 72 mg/dL >50 TRIGLYCERIDES 81 mg/dL <150 LDL-CHOLESTEROL 109 mg/dL (calc) [facility] CHOL/HDLC RATIO 2.8 (calc) <5.0 NON HDL CHOLESTEROL 126 mg/dL (calc) <13 0 CULTURE, URINE - 02/01/18 16:22 CULTURE, URINE, ROUTINE SEE NOTE [facility] - 03/16/18 12:36 GLUCOSE 111 mg/dL 65-99 UREA NITROGEN (BUN) 14 mg/dL 7-25 CREATININE 0.66 mg/dL 0.50-0.99 eGFR NON-AFR. KAZAKH 96 mL/min/1.73m2 > OR = 60 eGFR 111 mL/min/1.73m2 > OR = 60 BUN/CREATININE RATIO NOT APPLICABLE (calc) 6-22 SODIUM 138 mmol/L 135-146 POTASSIUM 3.7 mmol/L 3.5-5.3 CHLORIDE 100 mmol/L 98-110 CARBON DIOXIDE 32 mmol/L 20-32 CALCIUM 10.1 mg/dL 8.6-10.4 PROTEIN, TOTAL 6.9 g/dL 6.1-8.1 ALBUMIN 4.7 g/dL 3.6-5.1 GLOBULIN 2.2 g/dL (calc) 1.9-3.7 ALBUMIN/GLOBULIN RATIO 2.1 (calc) 1.0-2. 5 BILIRUBIN, TOTAL 0.5 mg/dL 0.2-1.2 ALKALINE PHOSPHATASE 99 U/L 33-130 AST 19 U/L 10-35 ALT 17 U/L 6-29 CBC - 03/16/18 12:36 WHITE BLOOD CELL COUNT 3.8 Thousand/uL 3 .8-10.8 RED BLOOD CELL COUNT 4.93 Million/uL 3.8 0-5.10 HEMOGLOBIN 13.4 g/dL 11.7-15.5 HEMATOCRIT 40.1 % 35.0-45.0 MCV 81.3 fL 80.0-100.0 MCH 27.2 pg 27.0-33.0 MCHC 33.4 g/dL 32.0-36.0 RDW 13.0 % 11.0-15.0 PLATELET COUNT 242 Thousand/uL 140-400 MPV 11.8 fL 7.5-12.5 ABSOLUTE NEUTROPHILS 2048 cells/uL 1500- 7800 ABSOLUTE LYMPHOCYTES 1368 cells/uL 850-3 900 ABSOLUTE MONOCYTES 312 cells/uL 200-950 ABSOLUTE EOSINOPHILS 61 cells/uL 15-500 ABSOLUTE BASOPHILS 11 cells/uL 0-200 NEUTROPHILS 53.9 % NRG LYMPHOCYTES 36.0 % NRG MONOCYTES 8.2 % NRG EOSINOPHILS 1.6 % NRG BASOPHILS 0.3 % NRG Complete blood count (CBC) with automate d white blood cell (WBC) differential - 06/07/18 22:18 Blood leukocytes automated count (number/volume) 5.2 10*3/uL 4.3-11.0 Blood erythrocytes automated count (number/volume) 4.86 10*6/uL 4.35-5.85 Venous blood hemoglobin measurement (mass/volume) 13.1 g/dL 11.5-16.0 Blood hematocrit (volume fraction) 40 % 35-52 Automated erythrocyte mean corpuscular volume 83 [ foz_us] 80-99 Automated erythrocyte mean corpuscular h emoglobin (mass per erythrocyte) 27 pg 25-34 Automated erythrocyte mean corpuscular h emoglobin concentration measurement (mass/volume) 33 g/dL 32-36 Automated erythrocyte distribution width ratio 13. 7 % 10.0- 14.5 Automated blood platelet count (count/volume) 290 10*3/uL [...] 10*3 1.0-4.0 Blood monocytes automated count (number/volume) 0. 3 10*3 0.0-1.0 Automated eosinophil count 0.1 10*3/uL 0 .0-0.3 Automated blood basophil count (count/volume) 0.0 10*3/uL 0.0-0.1 PT panel in platelet poor plasma by coag ulation assay - 06/07/18 22:18 Prothrombin time (PT) in platelet poor plasma by coagu lation assay 12.8 s 12.2-14.7 INR in platelet poor plasma or blood by coagulation as say 1.0 0.8-1.4 Activated partial thromboplastin time (a PTT) in platelet poor plasma bycoagulation assay - 06/07/18 22:18 Activated partial thromboplastin time (a PTT) in platelet poor plasma bycoagulation assay 31 s 24-35 Comprehensive metabolic panel - 06/07/18 22:18 Serum or plasma sodium measurement (moles/volume) 142 mmol/L 135-145 Serum or plasma potassium measurement (moles/volume) 3.6 mmol/L 3.6-5.0 Serum or plasma chloride measurement (moles/volume) 103 mmol/L 98-107 Carbon dioxide 25 mmol/L 21-32 Serum or plasma anion gap determination (moles/volume) 14 mmol/L 5-14 Serum or plasma urea nitrogen measurement (mass/volume ) 13 mg/dL 7-18 Serum or plasma creatinine measurement (mass/volume) 0.82 mg/dL 0.60-1.30 Serum or plasma urea nitrogen/creatinine mass ratio 16 NRG Serum or plasma creatinine measurement w ith calculation of estimated glomerular filtration rate > NRG Serum or plasma glucose measurement (mass/volume) 120 mg/dL 70-105 Serum or plasma calcium measurement (mass/volume) 10.8 mg/dL 8.5-10.1 Serum or plasma total bilirubin measurement (mass/volu me) 0.3 mg/dL 0.1-1.0 Serum or plasma alkaline phosphatase mikey surement (enzymatic activity/volume) 101 U/L 40-136 Serum or plasma aspartate aminotransfera se measurement (enzymatic activity/volume) 26 U/L 5-34 Serum or plasma alanine aminotransferase measurement (enzymatic activity/volume) 19 U/L 0-55 Serum or plasma protein measurement (mass/volume) 7.8 g/dL 6.4-8.2 Serum or plasma albumin measurement (mass/volume) 4.6 g/dL 3.2-4.5 Magnesium - 06/07/18 22:18 Magnesium 2.3 mg/dL 1.8-2.4 Serum or plasma creatine kinase measurem ent (enzymatic activity/volume) - 06/07/18 22:18 Serum or plasma creatine kinase measurem ent (enzymatic activity/volume) 127 U/L 29-168 Serum or plasma creatine kinase MB measu rement (enzymatic activity/volume) - 06/07/18 22:18 Serum or plasma creatine kinase MB measu rement (enzymatic activity/volume) 1.9 ng/mL <6.6 Serum or plasma troponin i.cardiac measu rement (mass/volume) - 06/07/18 22:18 Serum or plasma troponin i.cardiac measurement (mass/v olume) < ng/mL <0.028 Myoglobin, serum - 06/07/18 22:18 Myoglobin, serum 42.0 ng/mL 10.0-92.0 Serum or plasma amylase measurement (enz ymatic activity/volume) - 06/07/18 22:18 Serum or plasma amylase measurement (enzymatic activit y/volume) 44 U/L 25-125 Lipase - 06/07/18 22:18 Lipase 23 U/L 8-78 Serum or plasma lithium measurement (mol es/volume) - 06/07/18 22:18 BNP level 14.3 pg/mL <100.0 LIPID PANEL - 08/14/18 14:01 CHOLESTEROL, TOTAL 186 mg/dL <200 HDL CHOLESTEROL 75 mg/dL >50 TRIGLYCERIDES 60 mg/dL <150 LDL-CHOLESTEROL 96 mg/dL (calc) NRG CHOL/HDLC RATIO 2.5 (calc) <5.0 NON HDL CHOLESTEROL 111 mg/dL (calc) <13 0 GC/CHLAMYDIA (SWAB OR URINE)-RAPID - 14:22 CHLAMYDIA TRACHOMATIS RNA, TMA NOT DETECTED NOT DETECTED NEISSERIA GONORRHOEAE RNA, TMA NOT DETECTED NOT DETECTED COMMENT NRG LIPID PANEL - 04/22/19 11:52 CHOLESTEROL, TOTAL 205 mg/dL <200 HDL CHOLESTEROL 75 mg/dL >50 TRIGLYCERIDES 54 mg/dL <150 LDL-CHOLESTEROL 115 mg/dL (calc) NRG CHOL/HDLC RATIO 2.7 (calc) <5.0 NON HDL CHOLESTEROL 130 mg/dL (calc) <13 0 CMP - 04/22/19 11:52 GLUCOSE 111 mg/dL 65-99 UREA NITROGEN (BUN) 17 mg/dL 7-25 CREATININE 0.80 mg/dL 0.50-0.99 eGFR NON-AFR. KAZAKH 80 mL/min/1.73m2 > OR = 60 eGFR 92 mL/min/1.73m2 > OR = 60 BUN/CREATININE RATIO NOT APPLICABLE (calc) 6-22 SODIUM 138 mmol/L 135-146 POTASSIUM 3.8 mmol/L 3.5-5.3 CHLORIDE 100 mmol/L 98-110 CARBON DIOXIDE 29 mmol/L 20-32 CALCIUM 10.3 mg/dL 8.6-10.4 PROTEIN, TOTAL 7.4 g/dL 6.1-8.1 ALBUMIN 4.7 g/dL 3.6-5.1 GLOBULIN 2.7 g/dL (calc) 1.9-3.7 ALBUMIN/GLOBULIN RATIO 1.7 (calc) 1.0-2. 5 BILIRUBIN, TOTAL 0.5 mg/dL 0.2-1.2 ALKALINE PHOSPHATASE 97 U/L 33-130 AST 17 U/L 10-35 ALT 14 U/L 6-29 COVID-19 ([facility]) - 09/26/19 13:07 PDM - PAIN MGMT (PROFILE 3 WITH CONFIRMA TION) - 10/30/19 12:05 Prescribed Drug 1 Hydrocodone NRG Creatinine 37.8 mg/dL > or = 20.0 pH 7.3 4.5-9.0 Oxidant NEGATIVE mcg/mL <200 Amphetamines NEGATIVE ng/mL <500 medMATCH Amphetamines CONSISTENT NRG Benzodiazepines NEGATIVE ng/mL <100 medMATCH Benzodiazepines CONSISTENT NRG Marijuana Metabolite NEGATIVE ng/mL <20 medMATCH Marijuana Metab CONSISTENT NRG Cocaine Metabolite NEGATIVE ng/mL <150 medMATCH Cocaine Metab CONSISTENT NRG Opiates POSITIVE ng/mL <100 Oxycodone NEGATIVE ng/mL <100 medMATCH Oxycodone CONSISTENT NRG COMMENT NRG Codeine NEGATIVE ng/mL <50 medMATCH Codeine CONSISTENT NRG Hydrocodone 135 ng/mL <50 medMATCH Hydrocodone CONSISTENT NRG Hydromorphone 75 ng/mL <50 medMATCH Hydromorphone CONSISTENT NRG Morphine NEGATIVE ng/mL <50 medMATCH Morphine CONSISTENT NRG Norhydrocodone 233 ng/mL <50 medMATCH Norhydrocodone CONSISTENT NRG Radiology Report from [id number] on 02/23 14:25:00 Reason For Exam4 viewsREPORTINDICATION: Left shoulder pain.AP, oblique and transscapular Y views of left shoulder are obtained withaxillary view.FINDINGS: No fracture or malalignment is identified. There is no abnormal lyticor sclerotic focus. There is a dense calcification projecting over the lateralaspect of the left chest which may represent a granuloma.IMPRESSION: No acute abnormality is identified.Dictated on workstation:[id number] Line PRELIMINARY DICTATED BY: NO MOJICA MDDICTATED DT/TM: 02/24/2016 2:07 Encounters ACCT No. Visit Date/Time Discharge Status Pt. Type Provider Facility Loc./Unit Complaint [id number] 05/04/2016 13:06:00 Document Registration [id number] 11/05/2019 13:15:00 11/05/2019 23:59:5 9 [facility] Outpatient [facility] [id number] 02/25/2016 05:17:39 Document Registration [id number] 01/13/2017 12:08:00 23:59:59 CLS Outpatient Narcisa Young I Via [facility] Mur [facility] LUIS ARTURO [id number] 01/13/2017 12:09:00 23:59:00 DIS Outpatient Arturo JiménezNarcisa Cordell Via [facility] [employer] ALLERGY TESTING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
--- NOTE | 2019-11-23 07:00 | NUR ---
registration reports pt left at appx [phone].
== END 2019-11-23 06:55 | disposition left against medical advice (07) ==
LOC: EDUNIT# 05:12 → ER 05:16
DX: R42 Dizziness and giddiness (principal)
CPT/HCPCS: 99281

== ENCOUNTER → 2019-12-27 | Outpatient (CLI) | payer OTHER ==
--- NOTE | 2019-12-27 11:38 | Diagnostic Imaging Report ---
PROCEDURE: CT urinary tract, rule out kidney stone. TECHNIQUE: Multiple contiguous axial images were obtained through the abdomen and pelvis without the use of intravenous contrast. Auto Exposure Controls were utilized during the CT exam to meet ALARA standards for radiation dose reduction. INDICATION: Low back pain for one month and dysuria. COMPARISON: Correlation is made with prior CT from 11/28/2017. FINDINGS: Imaging through the lung bases demonstrates a calcified granuloma in the lingula. There is some scarring or atelectasis in the right middle lobe. Small low density in the right lobe of the liver is seen, similar to prior exam. This may represent a small cyst. A second tiny low density in the inferior right lobe is also stable. Gallbladder is unremarkable. No biliary ductal dilatation is seen. The pancreas and spleen are unremarkable. No adrenal mass is identified. Kidneys are unremarkable. No calculi are seen. There is no hydronephrosis. Aorta is non-aneurysmal. The bowel loops are normal caliber. There is no obstruction. There is no free fluid or fluid collection. Bladder is decompressed. Uterus does contain calcification, likely a calcified fibroid. The bony structures are nonacute. IMPRESSION: Essentially unremarkable noncontrast CT of the abdomen and pelvis. No acute abnormality is identified. Dictated by: Dictated on workstation # [id number]
== END ==
LOC: RAD 09:45
PROVIDERS: ATTEND Nurse Practitioner Community Health
DX: M54.5 Low back pain (principal); R30.0 Dysuria
CPT/HCPCS: 74176

== ENCOUNTER → 2020-09-09 | Outpatient (CLI) | payer OTHER ==
--- NOTE | 2020-09-09 16:18 | Diagnostic Imaging Report ---
PROCEDURE: MRI lumbar spine. TECHNIQUE: Multiplanar, multisequence MRI of the lumbar spine was performed without contrast. INDICATION: Lumbar degenerative disc disease with low back pain. There is diffuse desiccation of the lumbar disc. This is most pronounced at the L5-S1 level where there is diffuse disc bulging and endplate spurring which is associated with bilateral degenerative facet arthropathy. These findings combine to result in moderate spinal stenosis and moderate to severe neural foraminal stenosis which is greater on the right. At the L4-L5 level there is also disc bulging with degenerative facet arthropathy. This results in mild left and moderately severe right neural foraminal stenosis. There is also disc bulging at the L1-L2 level with mild degenerative facet arthropathy causing mild neural foraminal stenosis, greater on the left. Note is made of annular disc bulging in the lower thoracic spine. Conus medullaris has a normal appearance at the L1 level. No marrow signal abnormality is seen to indicate fracture. IMPRESSION: Diffuse lumbar degenerative disc and facet disease. This is most pronounced at L4-L5 and L5-S1. At L4-L5 there is mild left and moderately severe right neural foraminal stenosis with moderate spinal stenosis and [id number] neural foraminal stenosis, greater on the right at L5-S1. Dictated by: Dictated on workstation # [id number]
== END ==
LOC: RAD 14:45
PROVIDERS: ATTEND Physician Assistant
DX: M47.816 Spondylosis without myelopathy or radiculopathy, lumbar region (principal); M47.817 Spondylosis without myelopathy or radiculopathy, lumbosacral region; M51.36 Other intervertebral disc degeneration, lumbar region; M51.37 Other intervertebral disc degeneration, lumbosacral region; M48.061 Spinal stenosis, lumbar region without neurogenic claudication; M48.07 Spinal stenosis, lumbosacral region
CPT/HCPCS: 72148

== ENCOUNTER → 2020-12-04 | Outpatient (CLI) | payer OTHER ==
--- NOTE | 2020-12-07 08:33 | Diagnostic Imaging Report ---
INDICATION: Routine screening. Comparison is made with prior mammogram 10/17/2019 and 10/01/2018. 2-D and 3-D bilateral screening mammography was performed with CAD. Both breasts are heterogeneously dense, limiting the sensitivity of mammography. The parenchymal pattern is stable. No mass or malignant-appearing microcalcifications are seen. Axillae are unremarkable. IMPRESSION: BI-RADS Category 1 No mammographic features suspicious for malignancy are identified. ACR BI-RADS Category 1: Negative. Result letter will be mailed to the patient. Note: At least 10% of breast cancer is not imaged by mammography. Dictated by: Dictated on workstation # [id number]
== END ==
LOC: RAD 15:18
PROVIDERS: ATTEND Physician Assistant
DX: Z12.31 Encounter for screening mammogram for malignant neoplasm of breast (principal)
CPT/HCPCS: 77063; 77067

== ENCOUNTER 2021-08-19 05:41 | Outpatient (CLI) | payer OTHER ==
[~2021-08-19] VITALS: Ht 157.5 cm; Wt 81.2 kg
[~2021-08-19 05:41] MED LIST changes: +CYCL10TA25 PO
[2021-08-20] MEDS ORDERED: CYCL10TA25 PO (14:48)
[2021-08-20] MEDS ORDERED: PRAV20TA3 PO (14:48)
[2021-08-20] MEDS ORDERED: AMLO-250 PO (14:48)
[2021-08-20] MEDS ORDERED: ACHD5005 PO (14:48)
[2021-08-20] MEDS ORDERED: TRIA1CAP4 PO (14:48)
[2021-08-20] MEDS ORDERED: NAPR500T8 PO (14:48)
[2021-08-20] MEDS ORDERED: MECL-149 PO (14:48)
[2021-08-20] MEDS ORDERED: NF-ALLE180 PO (14:48)
[2021-08-20] MEDS ORDERED: POTA10TA37 PO (14:48)
== END 2021-08-20 14:54 | disposition home or self-care (01) ==
LOC: PREOP 05:41
PROVIDERS: ATTEND Surgery
DX: Z01.818 Encounter for other preprocedural examination (principal)

== ENCOUNTER 2021-09-21 07:18 | Day surgery (SDC) | payer OTHER ==
[~2021-09-21] VITALS: Ht 157.5 cm; Wt 81.2 kg
[~2021-09-21 07:18] MED LIST changes: +ACHD5005 PO; +AMLO-250 PO; +MECL-149 PO; +NAPR500T8 PO; +NF-ALLE180 PO; +POTA10TA37 PO; +PRAV20TA3 PO; +TRIA1CAP4 PO
[2021-09-21] MEDS ORDERED: LACTATED RINGERS 1,000 ML IV STA (07:24)
[2021-09-21 07:32] VITALS: BP 141/83
[2021-09-21] MEDS ORDERED: PROPOFOL INJECTION 50 ML IV ONE (09:50)
--- NOTE | 2021-09-21 10:18 | Anesthesia-General Post-Op ---
MAC Patient Condition Mental Status/LOC: Same as Preop Cardiovascular: Satisfactory Nausea/Vomiting: Absent Respiratory: Satisfactory Pain: Controlled Complications: Absent Post Op Complications Complications None Follow Up Care/Instructions Patient Instructions None needed. Anesthesiology Discharge Order Discharge Order Patient is doing well, no complaints, stable vital signs, no apparent adverse anesthesia problems. No complications reported per nursing. KELLY LARA CRNA Sep 21, 2021 10:18
[2021-09-21 10:20] VITALS: BP 112/61
--- NOTE | 2021-09-21 10:23 | Progress Note-Post Operative ---
Post-Operative Progess Note Surgeon (s)/Blending Technician (s) Surgeon ALYSSA DODSON DO Blending Technician: na Pre-Operative Diagnosis hx of colon polyps Post-Operative Diagnosis normal colon Procedure & Operative Findings Date of Procedure 09/21/21 Procedure Performed/Findings colonoscopy Anesthesia Type per residential real estate appraiser Estimated Blood Loss Estimated blood loss (mL): none Specimens/Packing Specimens Removed na ALYSSA DODSON DO Sep 21, 2021 10:23
[2021-09-21 10:25] VITALS: BP 114/63
--- NOTE | 2021-09-21 10:27 | Discharge Inst-Simple/Standard ---
Discharge Inst-Standard Patient Instructions/Follow Up Plan of Care/Instructions/FU: 5 years Barbara, any issues before that be seen at that time. Activity as Tolerated: Yes Discharge Diet: Regular Diet ALYSSA DODSON DO Sep 21, 2021 10:27
[2021-09-21 11:05] VITALS: BP 114/63
--- NOTE | 2021-09-21 16:45 | OPERATIVE REPORT ---
DATE OF SERVICE: 09/21/2021 PREOPERATIVE DIAGNOSIS: History of colon polyps. POSTOPERATIVE DIAGNOSIS: Normal colon. PROCEDURE PERFORMED: Colonoscopy. SURGEON: Alyssa Jimenez DO ANESTHESIA: Per DATA LEAD. ESTIMATED BLOOD LOSS: None. COMPLICATIONS: None. INDICATIONS FOR PROCEDURE: The patient is a 66-year-old female with history of colon polyps. She understands the risks and benefits of the procedure and wishes to proceed. Consent was signed in the chart. DESCRIPTION OF PROCEDURE: The patient was taken to the endoscopy suite and placed in the left lateral recumbent position. Timeout was performed. Digital rectal exam was performed. No palpable polyps, masses or ulcerations. Scope was inserted in the rectum and advanced all the way to cecum with minimal difficulty. Prep was adequate. Scope was slowly retracted back. No polyps, masses or ulcerations in the cecum, ascending, transverse, descending, and sigmoid colon. Once in the rectum, scope was retroflexed noting no other pathology. Scope was returned to its normal position, slowly withdrawn until completely removed. The patient tolerated the procedure well without any complications. She was taken to recovery room in stable condition. RECOMMENDATIONS: The patient will need repeat colonoscopy in 5 years due to history of colon polyps. Any issues before that be seen at that time. CC: [facility] - requested, unable to deliver. Job ID: [id number] DocumentID: [id number] Dictated Date: 09/21/2021 10:28:20 Nailing Machine Operator Date: 09/21/2021 16:43:46 Dictated By: ALYSSA JIMENEZ DO
== END 2021-09-21 11:05 | disposition home or self-care (01) ==
LOC: ENDO 07:18
PROVIDERS: ATTEND Surgery
DX: Z12.11 Encounter for screening for malignant neoplasm of colon (principal); Z86.010 Personal history of colon polyps

== ENCOUNTER → 2022-11-10 | Outpatient (CLI) | payer MEDICARE, OTHER ==
[~2022-11-10] MED LIST changes: +POTA-177 PO; -POTA10TA37 PO; -TRIA1CAP4 PO; +TRIA1CAP84 PO
--- NOTE | 2022-11-10 17:29 | Diagnostic Imaging Report ---
INDICATION: Routine screening. COMPARISON: Prior mammograms from 12/04/2020 and 10/17/2019. EXAMINATION: 2D and 3D bilateral screening mammography was performed with CAD. The current study was also evaluated with a Computer Aided Detection (CAD) system. FINDINGS: Both breasts are heterogeneously dense, limiting the sensitivity of mammography. The parenchymal pattern is stable. No mass or malignant-appearing microcalcification is seen. Axillae are unremarkable. IMPRESSION: No mammographic feature suspicious for malignancy is identified. ACR BI-RADS Category 1: Negative. Result letter will be mailed to the patient. Note: At least 10% of breast cancer is not imaged by mammography. Dictated by: Dictated on workstation # [id number]
== END ==
LOC: RAD 15:00
PROVIDERS: ATTEND Nurse Practitioner Family
DX: Z12.31 Encounter for screening mammogram for malignant neoplasm of breast (principal)
CPT/HCPCS: 77063; 77067